=== PATIENT | male | born 1945 | race Caucasian/White ===

== ENCOUNTER → 2017-07-07 13:39 | Outpatient (CLI) | payer MEDICARE, OTHER, SELFPAY ==
--- NOTE | 2017-07-07 13:46 | RAD_ITS ---
STUDY: X-RAY CHEST REASON FOR EXAM: Male, 71 years old. Cough TECHNIQUE: Frontal and lateral views of the chest COMPARISON: 01/20/2017 FINDINGS: The lungs are clear. There are no pleural effusions. There is no pneumothorax. The heart is normal in size. There are stable postsurgical changes noted in the cervical spine. RAD/Chest PA and Lateral IMPRESSION: No acute thoracic pathology. Electronically Signed: Joseph Kaur, at 19:53 EST Tel , Service support ,
== END ==
PROVIDERS: Family Provider Family Medicine; PCP Family Medicine; Visit Provider Family Medicine
DX: R05 Cough (principal)
CPT/HCPCS: 71046

== ENCOUNTER → 2017-07-23 11:33 | Outpatient (CLI) | payer MEDICARE, OTHER, SELFPAY ==
[2017-07-23 18:06] LABS: Anion Gap 10 (5-15); BUN 17 mg/dL (7-18); Calcium,Total 9.1 mg/dL (8.5-10.1); Chloride 105 mmol/L (98-107); Creatinine, Serum 1.13 mg/dL (0.70-1.30); EST Glomerular Filtration Rate 68 mL/min (>60); Est Glom Filt Rate - Afr Amer 82 mL/min (>60); Glucose 128 mg/dL (74-106); Potassium 4.2 mmol/L (3.5-5.1); Sodium Level 139 mmol/L (136-145)
== END ==
PROVIDERS: Family Provider Family Medicine; PCP Family Medicine; Visit Provider Internal Medicine Cardiovascular Disease
DX: E87.6 Hypokalemia (principal); I10 Essential (primary) hypertension; E78.5 Hyperlipidemia, unspecified; Z95.5 Presence of coronary angioplasty implant and graft; I25.119 Atherosclerotic heart disease of native coronary artery with unspecified angina pectoris
CPT/HCPCS: 36415; 80048

== ENCOUNTER 2017-08-01 15:23 | Emergency (ER) | payer MEDICARE, OTHER, SELFPAY ==
[2017-08-01] VITALS (8 sets, daily range): BP systolic 121–179; BP diastolic 84–91; PULSE 72–112; RESP 16–22; TEMP 37.3; O2SAT 92–99; BMI 35.5
[2017-08-01] MEDS: Ondansetron 4 MG/2 ML Vial IV (15:40)
[2017-08-01] MEDS: Morphine 4 MG/ML Syringe IV (15:40)
[2017-08-01] MEDS: Morphine 2 MG/ML Syringe IV (15:40)
--- NOTE | 2017-08-01 15:47 | EKG12_ITS ---
Test Reason : CP Blood Pressure : / mmHG Vent. Rate : 106 BPM Atrial Rate : 106 BPM P-R Int : 150 ms QRS Dur : 080 ms QT Int : 336 ms P-R-T Axes : 078 085 067 degrees QTc Int : 446 ms Sinus tachycardia Otherwise normal ECG Confirmed by NAOMIE PALOMO, PARVEZ ([id number]), communications editor MARLENY SIMENTAL ([id number]) on 08/03/2017 1:27:49 PM Referred By: ELI Confirmed By:PARVEZ AKBAR MD
--- NOTE | 2017-08-01 15:47 | RAD_ITS ---
STUDY: X-RAY - ACUTE ABDOMINAL SERIES REASON FOR EXAM: Male, 72 years old. Abdominal cramping and chest pain TECHNIQUE: Single view of the chest. Supine, and erect view(s) of the abdomen were obtained. COMPARISON: Chest x-ray dated 07/07/2017 FINDINGS: Lungs are mildly hypoinflated. Lungs are clear. Normal size heart. Normal mediastinum and melanie. Normal visualized pulmonary arteries. Normal visualized aortic arch and descending thoracic aorta. There is a moderate amount of colonic fecal material. Keratocyst in the loops of right hemicolon. No evidence of small bowel obstruction. There are diffuse degenerative changes of the visualized lumbar spine. RAD/Acute Abdomen Inc Chest IMPRESSION: No acute airspace disease. Gaseous distended loops of colon fecal retention. Findings are suggestive of ileus. No evidence of small bowel obstruction. Electronically Signed: Carlton Gordon DO at 16:24 EDT Tel , Service support ,
[2017-08-01] MEDS: 0.9% Normal Saline 1,000 ML 150 ML IV (15:52)
[2017-08-01 16:11] LABS: Absolute Lymphocyte Count 2.15 X10^3/ul (0.83-4.51); Absolute Neutrophil Count 4.6 X10^3/uL (2.0-7.7); Basophil# 0.01 X10^3/uL; Basophil% 0.1 % (0-1); Eosinophil# 0.06 X10^3/uL; Eosinophils% 0.8 % (0-5); Hematocrit 43.9 % (40-54); Hemoglobin 14.3 g/dl (13.0-16.5); Lymphocyte # 2.15 X10^3/ul (4.0); Lymphocyte % 28.1 % (19-41); Mean Corp Hgb Conc 32.6 g/gl (32-36); Mean Corpuscular Hgb 28.9 pg (27.0-32.0); Mean Corpuscular Volume 88.7 fL (80-94); Mean Platelet Vol. 11.9 fl (6.2-12.0); Monocyte% 10.5 % (0-10); Neutrophil # 4.61 X10^3/uL (2.7-7.7); Neutrophil % 60.2 % (47-70); Platelet Count 183 K/mm3 (150-450); RBC Distribution Width CV 14.4 % (11.6-14.6); RBC Distribution Width SD 46.6 fl (35.1-43.9); Red Blood Count 4.95 M/mm3 (4.6-6.2); White Blood Count 7.7 K/mm3 (4.4-11.0)
[2017-08-01 16:12] LABS: POSITIVE COUNT NO; POSITIVE DIFFERENTIAL NO; POSITIVE MORPHOLOGY NO
[2017-08-01 16:26] LABS: Anion Gap 8 (5-15); BUN 20 mg/dL (7-18); BUN/Creat Ratio 9.8 RATIO (10-20); Calcium,Total 8.4 mg/dL (8.5-10.1); Chloride 105 mmol/L (98-107); Creatinine, Serum 2.04 mg/dL (0.70-1.30); EST Glomerular Filtration Rate 34 mL/min (>60); Est Glom Filt Rate - Afr Amer 42 mL/min (>60); Glucose 112 mg/dL (74-106); Potassium 4.3 mmol/L (3.5-5.1); Sodium Level 141 mmol/L (136-145)
[2017-08-01 16:38] LABS: Bacteria 0 SEEN /hpf (None Seen); Mucous, Urine 0 SEEN /hpf (<or=2+); Red Blood Cells-Urine 0 SEEN /hpf (0-5); White Blood Cells 0 SEEN /hpf (0-5)
[2017-08-01 16:50] LABS: Color, Urine Straw (Yellow); Glucose, Dipstick Normal (Normal); Ketone-Dipstick Negative (Negative); Leukocyte Esterase-Dipstick Negative /ul (Negative); Nitrite-Dipstick Negative (Negative); Occult Blood-Urine Negative /ul (Negative); Protein-Dipstick Negative (Negative); Specific Gravity, Urine 1.015 (1.002-1.030); Urine Bilirubin Dipstick Negative (Negative); Urine Clarity Sl. Cloudy (Clear); Urine Urobilinogen Normal (Normal)
--- NOTE | 2017-08-01 17:07 | EKG12_ITS ---
Test Reason : REPEAT Blood Pressure : / mmHG Vent. Rate : 085 BPM Atrial Rate : 085 BPM P-R Int : 154 ms QRS Dur : 086 ms QT Int : 364 ms P-R-T Axes : 070 069 048 degrees QTc Int : 433 ms Normal sinus rhythm Normal ECG Confirmed by NAOMIE PALOMO, PARVEZ ([id number]), editor managing director MARLENY SIMENTAL ([id number]) on 08/03/2017 1:28:00 PM Referred By: JIE Confirmed By:PARVEZ AKBAR MD
[2017-08-01 17:20] LABS: Squamous Epithelial Cells - UA 0-5 SEEN /hpf (0-5)
[2017-08-01] MEDS: Dicyclomine 10 MG Capsule 20 MG PO (19:00)
--- NOTE | 2017-08-01 19:42 | ED.DCSUM_ITS ---
- ER Visit Summary Date of Service: 08/01/17 Chief Complaint: Cramping right-sided abdominal pain and migratory chest pain History of Present Illness: The patient is a 72 M who presents with right-sided cramping pain as well as chest pain. Chest pain was initially left-sided and described as sharp lasting seconds to minutes. The pain then went to the right side and back to the left and complained of numbness left upper extremity. He had no other symptoms. Prior to him having any chest pain or abdominal pain he had diaphoresis. This occurred 1 hour prior to the abdominal or chest pain. He does have history coronary disease. He states his pain was sharp with the coronary pain. He has never had a cardiac catheterization at this facility and there are no records of stress test at this facility. He states he is scheduled to have an outpatient stress test that was ordered by Dr. Alberto Olmstead. He denies fever, chills night sweats. Denies any ocular, auditory or visual symptoms. He denies palpitations, rapid heartbeat. He denies shortness of breath, cough, dyspnea on exertion or orthopnea. His abdominal pain is colicky right-sided. He is status post cholecystectomy. He has no other GI symptoms. He denies any urologic symptoms and there is no history of renal ureterolithiasis. He denies myalgias arthralgias or back pain. He has no other complaints please read written note Past history of coronary disease with 5 stents, type 2 diabetes, hypertension, hypercholesterolemia and end-stage renal disease (stage III) and obesity. Per old records he has history of TIA. Past surgical history remarkable for cholecystectomy, tonsillectomy, herniorrhaphy and prostatectomy. Physical Examination: Elderly gentleman who does not appear in any significant distress. HEENT exam is unremarkable. Heart is regular without murmur, gallop or rub. Lungs are clear to auscultation. He has good movement bilaterally. Abdomen is soft nontender slightly distended with increased bowel sounds and mild tympana. He has a small reducible umbilical hernia. There is no evidence of inguinal hernia. There is no inguinal lymphadenopathy. He has no CVA tenderness noted. Neuro exam is nonfocal. Daughter was concerned that he had a rash. He does have a rash as well as dry scaly skin. There is no hives and this is located near the hairline/right side of the forehead. The rash does chelsea. Test Results: EKG #1, 2 and 3 are all normal. Troponin #1 and troponin #2 3 hours later is normal with a delta of 0. BMP is remarkable for glucose of 112 and creatinine of 2.04 with a GFR of 34. CBC is normal. Abdominal series obtained because of his abdominal pain with distention and reveals a nonsevere gas pattern with hardware noted secondary to cervical fusion. Cardiac silhouette and mediastinum are normal. There is air-fluid levels however there is no distention or edema to the small bowel wall. And there is gas noted throughout the intestine. Emergency Department Course and Treatment: Evaluate patient's abdominal pain because of distention and slight temp and abdominal series was obtained. To evaluate his chest pain with history of coronary disease and multiple medical problems EKG was obtained. EKG was obtained when he had pain as well as a 3 hour EKG. He also had a troponin with a delta 3 hour troponin. He initially received morphine for his colicky abdominal pain. He did receive 1 nitro for his chest pain as well as Bentyl. He and his daughter been told the etiology of his abdominal pain is uncertain and because of his chest pain is unknown as well. Treatment Plan: Keep appointment with Dr. Olmstead and outpatient stress test. Disposition: Discharged to home Impression: 1. Colicky right-sided abdominal pain of unknown etiology 2. Intermittent sharp chest pain of unknown etiology 3. History of coronary disease 4. History of diabetes, hypertension hypercholesterolemia 5. History of end-stage renal disease, stage III This note was generated with [employer] dictation software. It may contain incorrect words, spelling, and punctuation that were not noted in review of the chart prior to signing ED Disposition - Plan for ED Patient: Disposition: Home or Assisted Living Chief Complaint: Chest Pain Instructions: ED Chest Pain Atypical Unkn Cause, ED Abdominal Pain Unkn Cause Male Prescriptions: Dicyclomine HCl [Bentyl] 20 mg PO ACHS #10 cap Referrals: Victor M Luke DO [Primary Care Provider] - Kalee Olmstead MD [[facility]] - Keep [facility] appointment
[2017-08-01] MEDS: Dicyclomine 10 MG Capsule PO (19:48)
== END 2017-08-01 19:51 | disposition home or self-care (01) ==
PROVIDERS: Emergency Provider Emergency Medicine; Family Provider Family Medicine; PCP Family Medicine
DX: R10.84 Generalized abdominal pain (principal); R07.9 Chest pain, unspecified; I25.10 Atherosclerotic heart disease of native coronary artery without angina pectoris; E11.9 Type 2 diabetes mellitus without complications; E78.00 Pure hypercholesterolemia, unspecified; N18.6 End stage renal disease; I12.0 Hypertensive chronic kidney disease with stage 5 chronic kidney disease or end stage renal disease; Z90.49 Acquired absence of other specified parts of digestive tract; Z86.73 Personal history of transient ischemic attack (TIA), and cerebral infarction without residual deficits; Z87.891 Personal history of nicotine dependence
CPT/HCPCS: 74022; 80048; 81001; 84484; 85025; 93005; 99285; A4216; J2405

== ENCOUNTER → 2017-08-04 14:21 | Outpatient (CLI) | payer MEDICARE, OTHER, SELFPAY ==
--- NOTE | 2017-08-04 14:21 | ECHOD_ITS ---
Reason For Study: CAD/ASHD Procedure This was a 2D Doppler, Color Flow transthoracic echocardiogram. The study was technically difficult. Exam performed in department. Left Ventricle Normal size and thickness. The estimated ejection fraction is 65 %. Stage 1 diastolic dysfunction. No regional wall motion abnormalities noted. Right Ventricle Normal size and thickness. Normal systolic function. Atria Normal left atrium. Normal right atrium. Normal atrial septum. Mitral Valve The mitral valve is structurally normal. No prolapse or stenosis seen. Trivial mitral valve insufficiency. Tricuspid Valve Normal tricuspid valve. Trivial tricuspid valve insufficiency. Right ventricular systolic pressure estimated to be 30 mmHg. Aortic Valve Trisinus/trileaflet aortic valve. Mild focal aortic valve thickening. Pulmonic Valve Normal pulmonic valve. Great Vessels Normal aortic root. Normal arch. Normal inferior vena cava. Inferior vena cava collapse with sniff. Pericardium/Pleural No pericardial effusion. MMode/2D Measurements & Calculations LVIDd: 4.7 cm IVSd: 1.1 cm Ao root diam: 3.3 cm LVIDs: 3.1 cm LVPWd: 1.1 cm LA dimension: 3.5 cm RVDd: 3.0 cm FS: 34.5 % LAV(MOD-bp): 37.7 ml LA A4 area: 15.4 cm2 RA A4 area: 14.0 cm2 LAV(MOD-bp) Indexed: 17.7 ml/m2 LAV(MOD-sp2): 32.6 ml LAV(MOD-sp4): 43.7 ml Time Measurements MV dec time: 0.30 sec Doppler Measurements & Calculations MV E max nicho: 44.4 cm/sec Lat Peak E' Nicho: 9.2 cm/sec Med Peak E' Nicho: 5.7 cm/sec MV A max nicho: 60.4 cm/sec E/E' lat: 4.8 E/E' med: 7.7 MV E/A: 0.74 Ao V2 max: 120.0 cm/sec LV V1 max: 94.0 cm/sec PA V2 max: 116.3 cm/sec Ao max P.8 mmHg LV V1 max P.5 mmHg TR max nicho: 250.2 cm/sec TR max P.0 mmHg Interpretation Summary The estimated ejection fraction is 65 %. Stage 1 diastolic dysfunction. Trivial mitral valve insufficiency. Trivial tricuspid valve insufficiency. Right ventricular systolic pressure estimated to be 30 mmHg. Compared to echo report dated 08/17/2009, no appreciable chages noted. Ordering Physician: Elías Olmstead Referring Physician: Victor M Luke Performed By: Treva Black RDCS, RVT
== END ==
PROVIDERS: Family Provider Family Medicine; PCP Family Medicine; Visit Provider Internal Medicine Cardiovascular Disease
DX: I25.119 Atherosclerotic heart disease of native coronary artery with unspecified angina pectoris (principal); I25.2 Old myocardial infarction; Z95.5 Presence of coronary angioplasty implant and graft
CPT/HCPCS: 93306

== ENCOUNTER → 2017-08-06 13:23 | Outpatient (CLI) | payer MEDICARE, OTHER, SELFPAY ==
--- NOTE | 2017-08-06 13:24 | STEWCON_ITS ---
Reason For Study: Chest Pain Stress Results Protocol: Modified [facility]itt Protocol Maximum Predicted HR: 148 bpm Target HR: 126 bpm% Maximum Pred icted HR: 88 % Heart Stage Duration Rate BPCom ment (mm:ss) (bpm) Definity 2 ML Diluted Given; NTG 0.4 MG SL Given Per Baseline 92 128/ 90Order Prior To Test For BP of 176/120 Modified [facility] Protocol Stage 0 3:00 12 6 158/90 Modified [facility] Protocol Stage 1/2 0:30 13 0 / 2/1 0 Chest Pressure Recovery 96 146/ 90No Chest Pain Stress Duration: 3:30 mm:ss Maximum Stress HR: 130 bpmM ETS: 2 Baseline Echocardiogram Findings The estimated ejection fraction is 60 %. Stress Echo Wall motion Data Resting WMIntermediate WMStress WM Resting Wall Motion Wall Motion Stress No regional wall motion Lateral-Basal: Mildly abnormalities noted. hypokinetic. Infero-Basal: Mildly hypokinetic. EKG Data Normal intervals are noted. Interpretation Summary The study was technically difficult. Contrast injection was performed. Lateral-Basal: Mildly hypokinetic Infero-Basal: Mildly hypokinetic Abnormal, adequate, treadmill echocardiogram. Positive for ischemia by echocardiographic criteria. Positive anginal symptoms noted at peak exercise. Markedly reduced exercise capacity for age. Hypertensive blood pressure response to exercise. 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 Chest pain resolved in recovery. No dynamic EKG changes noted. Final LVEF of 55%. No complications. Patient will be referred for diagnostic coronary angiogram. Ordering Physician: Elías Olmstead Referring Physician: Elías Olmstead Performed By: Maida Gómez RDCS
== END ==
PROVIDERS: Family Provider Family Medicine; PCP Family Medicine; Visit Provider Internal Medicine Cardiovascular Disease
DX: I25.119 Atherosclerotic heart disease of native coronary artery with unspecified angina pectoris (principal); I25.2 Old myocardial infarction; Z95.5 Presence of coronary angioplasty implant and graft
CPT/HCPCS: 93017; 93350; J7030; Q9957; A4216; C8928

== ENCOUNTER 2017-08-13 06:40 | Day surgery (SDC) | payer MEDICARE, OTHER, SELFPAY ==
[2017-08-11 11:01] LABS: Absolute Lymphocyte Count 1.39 X10^3/ul (0.83-4.51); Absolute Neutrophil Count 4.8 X10^3/uL (2.0-7.7); Basophil# 0.02 X10^3/uL; Basophil% 0.3 % (0-1); Eosinophils% 1.4 % (0-5); Hematocrit 47.3 % (40-54); Hemoglobin 15.3 g/dl (13.0-16.5); Lymphocyte # 1.39 X10^3/ul (4.0); Lymphocyte % 19.6 % (19-41); Mean Corp Hgb Conc 32.3 g/gl (32-36); Mean Corpuscular Hgb 28.7 pg (27.0-32.0); Mean Corpuscular Volume 88.7 fL (80-94); Mean Platelet Vol. 12.3 fl (6.2-12.0); Monocyte# 0.77 X10^3/uL; Monocyte% 10.9 % (0-10); Neutrophil # 4.78 X10^3/uL (2.7-7.7); Neutrophil % 67.4 % (47-70); Platelet Count 161 K/mm3 (150-450); RBC Distribution Width CV 14.7 % (11.6-14.6); Red Blood Count 5.33 M/mm3 (4.6-6.2); White Blood Count 7.1 K/mm3 (4.4-11.0)
[2017-08-11 11:02] LABS: POSITIVE COUNT NO; POSITIVE DIFFERENTIAL NO; POSITIVE MORPHOLOGY NO
[2017-08-11 11:09] LABS: Prothrombin Time (Protime)PT. 13.6 SECONDS (11.7-14.9)
[2017-08-11 11:10] LABS: Partial Thromboplast Time 33.1 Seconds (24.1-36.2)
[2017-08-12 08:28] VITALS: BMI 32.5
[2017-08-13] VITALS (22 sets, daily range): BP systolic 92–159; BP diastolic 61–92; PULSE 61–95; RESP 15–27; TEMP 36.6–36.7; O2SAT 94–100; BMI 33.2; BMI 32.5
--- NOTE | 2017-08-13 10:17 | CL.I_ITS ---
Patient Name: GERRY GARCIA Study Date: 08/13/2017 Performing: Elías Olmstead MD Ht: 69 inches 175 cm : 1945 Wt: 220.8 lbs 100 kg Age: 72 Gender: male BSA: 2.15 PROCEDURE(S) PERFORMED JE89-DLI/COR/LV [id number] W OR WO PTCA, SINGLE CORONARY ARTERY CLINICAL PROFILE AND CO-MORBIDITIES Indications: New Onset Angina <= 2 months, Worsening Angina, Stable Known CAD Heart Failure: None Stress/Imaging Stress/Image Study Performed: No Angina Classification Anginal Classification w/in 2 Weeks: CCS IV CAD Presentations: Unstable angina. 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 RECOMMENDATIONS Referred for immediate PCI Highly recommend quitting all tobacco products Follow up with primary medical delivery driver Risk factor modification ASA Indefinitley Plavix for at least 12 months Routine post interventional care Refer for Outpatient Cardiac Rehab Manual sheath removal per protocol Follow up with Dr. Olmstead PFTS in 2 weeks Pt had similar chest pain and heaviness with balloon inflations. DESCRIPTION OF PROCEDURE The patient arrived to the procedure lab. The risks and benefits of the procedure as well as a full d escription of our services here and lack of surgical backup were fully explained to the patient and/o r their significant other prior to the catheterization. The Timeout was completed, verifying the slime ect patient and procedure. The patient's procedural site was prepped and draped in the usual fashion. Local anesthetic was given subcutaneously to right groin region with Lidocaine 2%. Using a modified Seldinger technique, arterial access was obtained via the right femoral artery, a 4Fr sheath was inse rted. Left Coronary Artery selective angiography was performed in multiple views using a 4 Fr. JL5 c atheter. Right Coronary Artery selective angiography was then performed in multiple views using a 4 F r. 3DRC catheter. Left Ventriculography was performed in JOSEPH projection using a 4 Fr. Pigtail cathete r. LV to AO pullback pressures were then recordedThe images were reviewed and options discussed. A de cision was then made to proceed with an Intervention, IVUS or other adjunct procedure. Arterial sheath was exchanged for a 6 Fr Sheath Angiogram performed pre balloon dilatation. HS2 Guide catheter was inserted and engaged into the RCA. BMW Guide wire was advanced to the Circumflex. Zinge r Guide wire was advanced to the Circumflex. BMW Guide wire was inserted as a toyin wire Zinger Guide wire was advanced to the Circumflex. Runthrough Guide wire was advanced to the Circumflex. 2x8 emerg e Balloon catheter was inserted. Balloon catheter was advanced across lesion in the circumflex, proxi mal. PTCA balloon inflated at 6 atms for 10 secs PTCA balloon inflated at 8 atms for 20 secs PTCA bal loon inflated at 8 atms for 10 secs Angiogram performed post balloon dilatation. PTCA balloon inflate d at 8 atms for 10 secs Angiogram performed pre stent deployment. 2.25x20 Synergy Drug Eluting stent was inserted Drug Eluting stent was advanced across the lesion in the circumflex, proximal. 2.25x8 NC emerge Balloon catheter was inserted. Angiogram performed post stent deployment. Arterial sheath was exchanged for a 6 Fr 11cm Sheath. . The arterial sheath was sutured in place and capped. CORONARY ANGIOGRAPHY DOMINANCE: Right Dominant LEFT HEART ASSESSMENT Left Ventricular Ejection Fraction: by LV Gram 65 % Normal Left Ventricular systolic function Normal Left Ventricular End Diastolic Pressure Normal LV wall motion LEFT MAIN: Angiographically normal LEFT ANTERIOR DECENDING ARTERY: Mild luminal irregularities less than 30% CIRCUMFLEX ARTERY: 85 prox % Stenosis RIGHT CORONARY ARTERY: MID RCA: Instent restenosis 10 % INTERVENTION INFORMATION LESION SITE: Circumflex (Proximal) Lesion Complexity: High/C, lesion at bifurcation: No, thrombus present: No, lesion length: 20 mm, cul prit lesion: Yes Pre Stenosis: 85 % Pre intervention DEXTER flow: 3 PROCEDURE: Drug Eluting Stent with pre and post dilatation Post Stenosis: 0 % Post intervention DEXTER flow: 3 Lesion Devices: Medtronic 6 Fr HSII 100cm Guide Catheter [place] .014 BMW [place] Straight 190cm Medtronic .014 Zinger medium wire 180cm straight Terumo .014 Runthrough Extra Floppy 180cm straight Aquiles Sci EMERGE MR 2.00x08 BALLOON Aquiles Sci Synergy MR KENDALL 2.25x20 Aquiles Sci NC EMERGE MR 2.25x08 BALLOON COMPLICATIONS No Complications PROCEDURE MEDICATIONS Oxygen: 2 L/min via nasal cannula Heparin 6000 unit(s) IV 08/13/2017 09:04:44 Nitro 200 mcg IC 08/13/2017 09:07:06 Nitro 200 mcg IC 08/13/2017 09:07:06 Nitro 200 mcg IC 08/13/2017 09:39:43 IV Fluids: .9 NaCl increased to W/O ml/hr 08/13/2017 09:09:29 IV Fluids: .9 NaCl decreased to 150 ml/hr 08/13/2017 09:34:46 SUMMARY OF HEMODYNAMIC DATA Time AIR REST ECG 07:05:48 AO 146/93 (117) SA 08:44:35 LV 151/-19, 14 08:53:31 LVp 156/-20, 13 08:53:50 AOp 152/75 (105) 08:53:55 Signed By Elías Olmstead MD On 08/13/2017 10:16:37 Elías Olmstead MD
--- NOTE | 2017-08-13 10:21 | EKG12_ITS ---
Test Reason : CP Blood Pressure : / mmHG Vent. Rate : 071 BPM Atrial Rate : 071 BPM P-R Int : 160 ms QRS Dur : 086 ms QT Int : 402 ms P-R-T Axes : 067 062 078 degrees QTc Int : 436 ms Normal sinus rhythm Inferior AR, age undetermined, cannot be excluded Nonspecific T wave abnormality Confirmed by RACH PALOMO, MUKUL ([id number]), staff editor MARLENY SIMENTAL ([id number]) on 08/20/2017 1:40:48 PM Referred By: Elías Olmstead Confirmed By:MUKUL LOYD MD
[2017-08-13 10:47] LABS: Hematocrit 42.3 % (40-54); Hemoglobin 14.1 g/dl (13.0-16.5); Mean Corp Hgb Conc 33.3 g/gl (32-36); Mean Corpuscular Hgb 29.4 pg (27.0-32.0); Mean Corpuscular Volume 88.1 fL (80-94); Mean Platelet Vol. 12.2 fl (6.2-12.0); Platelet Count 167 K/mm3 (150-450); RBC Distribution Width CV 14.6 % (11.6-14.6); RBC Distribution Width SD 46.8 fl (35.1-43.9); Scan Indicated on CBC? Y/N NO; White Blood Count 8.4 K/mm3 (4.4-11.0)
[2017-08-13 11:03] LABS: CPK Total, Creatine Kinase 81 U/L (39-308)
[2017-08-13 11:42] LABS: M R Staph aureus DNA By PCR Negative (Negative); Probe Check PASS; Specimen Processing Control PASS
[2017-08-13] MEDS: Spironolactone 50 MG Tablet PO (13:35)
[2017-08-13] MEDS: Cyanocobalamin 500 MCG Tablet 1000 MCG PO (13:38)
--- NOTE | 2017-08-13 14:03 | CRPHASE1 ---
Patient Data/Charges Former Patient:: Phase I Audience Coordinator:: Elías Olmstead Admit Date:: 08/13/17 Phase II Referral:: [facility] Phase I Charge:: Level I - Education Risk Factors/Lifestyle Smoking Status: Former smoker - QUIT 20 NYRS AGO Hx Hypertension: Yes - ON MEDS Hx Diabetes Mellitus Type 2: Yes - ON MEDS Hx Obesity: Yes Height: 1.75 m Weight:: 99.79 kg BMI: 32.5 Stress: Long-standing Caffeine: Yes Risk Factor for Sedentary Lifestyle: Moderate Risk Family History: COPD, Diabetes, Heart Disease, Hypertension, Pulmonary Disease Past Cardiac Illness: Myocardial Infarction Phase I Education Given On:: [place], Nutrition, Antiplatelet medication, CHF, Diabetes - Type II Issues Affecting Care:: None Knowledge of Condition:: Yes Hospital Course Pain Description: Throbbing, Cramping Pain Intensity: 10 Cardiac Cath Date:: 08/13/17 Medical/Surgical History [place]:: Yes - 2006 Angina:: Yes COPD:: Yes - GETTING TESTING DONE Diabetes Type II:: Yes - ON MEDS Hypertension:: Yes - ON MEDS Arthritis:: Yes - USES A CANE GI:: No GERD:: No Cancer:: No Renal:: No Thyroid:: No Depression:: Yes Anxiety:: Yes Discharge/Home/Social Eval Discharge Disposition: Home Marital Status: -
--- NOTE | 2017-08-13 14:09 | CRPHASE1_ITS ---
Patient Data/Charges Former Patient:: Phase I Security Inspector:: Elías Olmstead Admit Date:: 08/13/17 Phase II Referral:: [facility] Phase I Charge:: Level I - Education Risk Factors/Lifestyle Smoking Status: Former smoker - QUIT 20 NYRS AGO Hx Hypertension: Yes - ON MEDS Hx Diabetes Mellitus Type 2: Yes - ON MEDS Hx Obesity: Yes Height: 1.75 m Weight:: 99.79 kg BMI: 32.5 Stress: Long-standing Caffeine: Yes Risk Factor for Sedentary Lifestyle: Moderate Risk Family History: COPD, Diabetes, Heart Disease, Hypertension, Pulmonary Disease Past Cardiac Illness: Myocardial Infarction Phase I Education Given On:: [place], Nutrition, Antiplatelet medication, CHF, Diabetes - Type II Issues Affecting Care:: None Knowledge of Condition:: Yes Hospital Course Pain Description: Throbbing, Cramping Pain Intensity: 10 Cardiac Cath Date:: 08/13/17 Medical/Surgical History [place]:: Yes - 2006 Angina:: Yes COPD:: Yes - GETTING TESTING DONE Diabetes Type II:: Yes - ON MEDS Hypertension:: Yes - ON MEDS Arthritis:: Yes - USES A CANE GI:: No GERD:: No Cancer:: No Renal:: No Thyroid:: No Depression:: Yes Anxiety:: Yes Discharge/Home/Social Eval Discharge Disposition: Home Marital Status: -
--- NOTE | 2017-08-13 14:11 | CRPH1.INST_ITS ---
General Education CAD and cardiac anatomy and function:: Patient communicates acknowledgment, Family communicates acknowledgment Explanation of diagnoses and procedures:: Patient communicates acknowledgment, Family communicates acknowledgment Sign/Symptoms of ID:: Patient communicates acknowledgment, Family communicates acknowledgment Antiplatelet therapy: Patient communicates acknowledgment, Family communicates acknowledgment Proper use of NTG-SL: Patient communicates acknowledgment, Family communicates acknowledgment Emergency procedures and activation of EMS: Patient communicates acknowledgment , Family communicates acknowledgment Compliance of all prescribed medications: Patient communicates acknowledgment, Family communicates acknowledgment Smoking Patient Nicotine/Smoking Risk Factors Are:: Non-smoker - QUIT 20 YRS AGO Dyslipidemia Recommendations Include:: Lipid profile not available Overweight/Obesity Patient Overweight/Obesity Risk Factors Are:: Obesity - > or = 30 - PATIENTS ATATES HE HAS A PROBLEM WITH OVEREATING. Overweight/Obesity:: Patient communicates acknowledgment, Family communicates acknowledgment Hypertension Recommendations Include:: Maintain BP <130/85, BP <130/80 if diabetic, DASH dietary guidelines, Decrease/maintain normal body weight Hypertension:: Patient communicates acknowledgment, Family communicates acknowledgment - ON MEDS Heart Disease Patient Heart Disease Risk Factors Are:: Previous cardiac event Heart Disease Response Code:: Patient communicates acknowledgment, Family communicates acknowledgment Diabetes Patient Diabetes Risk Factors Are:: Elevated blood sugars Recommendations Include:: Maintain fasting blood sugars 70-110 md/dL, Maintain HgbA1c of 6% or less, Monitor blood sugar as prescribed, Diabetic dietary guidelines, Decrease/maintain body weight Diabetes:: Patient communicates acknowledgment Metabolic Syndrome Patient Metabolic Syndrome Risk Factors Are [3 of 5]:: Fasting blood sugar > 100 mg/dL, Hypertension Recommendations Include:: Reinforce compliance to risk factor modifications, Patient is diabetic Metabolic Syndrome Response Code:: Patient communicates acknowledgment, Family communicates acknowledgment Sedentary Patient Sedentary Risk Factors Are:: Lack of regular exercise Recommendations Include:: Benefits of regular exercise, Discussed home walking program, Monitored Outpatient Cardiac Rehab Sedentary Response Code:: Patient communicates acknowledgment, Family communicates acknowledgment Stress Recommendations Include:: Identification of stressors, and assessment of coping skills Stress Response Code:: Patient communicates acknowledgment, Family communicates acknowledgment - ON MEDS FOR ANXIETY
--- NOTE | 2017-08-13 14:50 | EKG12_ITS ---
Test Reason : POST CATH Blood Pressure : / mmHG Vent. Rate : 063 BPM Atrial Rate : 063 BPM P-R Int : 166 ms QRS Dur : 082 ms QT Int : 380 ms P-R-T Axes : 069 060 083 degrees QTc Int : 388 ms Normal sinus rhythm Nonspecific T wave abnormality Confirmed by RACH PALOMO, MUKUL ([id number]), newspaper copy editor MARLENY SIMENTAL ([id number]) on 08/20/2017 1:41:03 PM Referred By: Elías Olmstead Confirmed By:MUKUL LOYD MD
--- NOTE | 2017-08-13 14:58 | PCM.PN.BLA ---
Progress Note Patient is not on an JOSELO inhibitor or ARB d/t kidney disease.
--- NOTE | 2017-08-13 15:01 | PCM.DC.CCA ---
Discharge Diet: Low fat/ Low Cholesterol Discharge Activity: Return to Normal Activity May shower in (days): 1 May resume sexual activity in: 10-14 days Lifting Restrictions: Do not lift anything greater than 10 pounds for 3 days Call your doctor if your incision/area has: Continuous Slow Oozing, Sudden Increased Bleeding, Increased Pain/ Swelling, Increased Redness, Foul Smelling Discharge, Swelling at the incision site Call your doctor if you observe: Fever of 101 or Higher, Shortness of breath, Chest pain Remove Dressing in (days):: 1 Cleanse incision/area with: Soap & Water Additional Instructions: You will continue with Plavix for at least one year. If anyone asks you to stop it or you are getting low on medication, please call the [facility] at [phone]. You will continue with aspirin for life if tolerated. You will keep appointment on 08/30/[address] Olmstead for further evaluation. You will under going lung tests on 08/23/2017. You may receive a phone call from cardiac rehab before next visit with Dr. Olmstead. Allergies/Adverse Reactions: Allergies No Known Allergies Allergy (Verified 07/22/17 10:54) Medications to take at Discharge Aspirin E.C. [Ecotrin] 81 mg PO DAILY@0800 01/21/17 Cholecalciferol (Vitamin D3) [Vitamin D3] 2,000 unit PO DAILY 01/21/17 Clopidogrel Bisulfate [Clopidogrel] 75 mg PO DAILY 01/21/17 Cyanocobalamin (Vitamin B-12) [Vitamin B-12] 1,000 mcg PO DAILY 01/21/17 Furosemide [Lasix] 80 mg PO DAILY 01/21/17 Isosorbide Mononitrate [Imdur] 120 mg PO DAILY 01/21/17 Magnesium Oxide [Magnesium] 400 mg PO DAILY 01/21/17 Nitroglycerin [Nitrostat] 0.3 mg SL UD PRN 01/21/17 Pantoprazole Sodium [Protonix] 40 mg PO BID 01/21/17 Spironolactone [Aldactone] 50 mg PO DAILY 01/21/17 Venlafaxine HCl [Venlafaxine HCl ER] 150 mg PO DAILY 01/21/17 metoprolol tartrate 50 mg tablet 50 mg PO BID 07/22/17 potassium chloride ER 20 mEq tablet,extended release 20 meq PO Q4H tab 07/22/17 Atorvastatin Calcium [Lipitor] 80 mg PO QHS 08/12/17 Primary Care Physician: Victor M Luke DO [Primary Care Provider] - Please Follow Up With: Dr. Olmstead When: 08/30/2017 at 1:30 Proposed Discharge Date: 08/14/17 Cardiac Rehabilitation Info Cardiac Rehabilitation Program Information: Cardiac Rehabilitation is important for patients like you who are recovering from a heart problem. Cardiac rehabilitation programs are recognized as integral to the continued care of the patient with coronary heart disease. The cardiac rehabilitation program is designed to optimize a patient's physical, psychological, and social functioning. Health palliative care nurse work in cardiac rehabilitation programs and assist you with getting the treatments you need to get stronger and healthier - like exercise, healthy eating habits, and medications. Cardiac rehabilitation has been show to help people with heart problems live longer and have better life enjoyment than people who do not go to cardiac rehabilitation. Please contact the Cardiac Rehabilitation Program at [facility] at in two weeks if you have not heard from them.
--- NOTE | 2017-08-13 15:06 | DCINST_ITS ---
Discharge Diet: Low fat/ Low Cholesterol Discharge Activity: Return to Normal Activity May shower in (days): 1 May resume sexual activity in: 10-14 days Lifting Restrictions: Do not lift anything greater than 10 pounds for 3 days Call your doctor if your incision/area has: Continuous Slow Oozing, Sudden Increased Bleeding, Increased Pain/ Swelling, Increased Redness, Foul Smelling Discharge, Swelling at the incision site Call your doctor if you observe: Fever of 101 or Higher, Shortness of breath, Chest pain Remove Dressing in (days):: 1 Cleanse incision/area with: Soap & Water Additional Instructions: You will continue with Plavix for at least one year. If anyone asks you to stop it or you are getting low on medication, please call the [facility] at [phone]. You will continue with aspirin for life if tolerated. You will keep appointment on 08/30/[address] Olmstead for further evaluation. You will under going lung tests on 08/23/2017. You may receive a phone call from cardiac rehab before next visit with Dr. Olmstead. Allergies/Adverse Reactions: Allergies No Known Allergies Allergy (Verified 07/22/17 10:54) Medications to take at Discharge Aspirin E.C. [Ecotrin] 81 mg PO DAILY@0800 01/21/17 Cholecalciferol (Vitamin D3) [Vitamin D3] 2,000 unit PO DAILY 01/21/17 Clopidogrel Bisulfate [Clopidogrel] 75 mg PO DAILY 01/21/17 Cyanocobalamin (Vitamin B-12) [Vitamin B-12] 1,000 mcg PO DAILY 01/21/17 Furosemide [Lasix] 80 mg PO DAILY 01/21/17 Isosorbide Mononitrate [Imdur] 120 mg PO DAILY 01/21/17 Magnesium Oxide [Magnesium] 400 mg PO DAILY 01/21/17 Nitroglycerin [Nitrostat] 0.3 mg SL UD PRN 01/21/17 Pantoprazole Sodium [Protonix] 40 mg PO BID 01/21/17 Spironolactone [Aldactone] 50 mg PO DAILY 01/21/17 Venlafaxine HCl [Venlafaxine HCl ER] 150 mg PO DAILY 01/21/17 metoprolol tartrate 50 mg tablet 50 mg PO BID 07/22/17 potassium chloride ER 20 mEq tablet,extended release 20 meq PO Q4H tab Atorvastatin Calcium [Lipitor] 80 mg PO QHS 08/12/17 Primary Care Physician: Victor M Luke DO [Primary Care Provider] - Please Follow Up With: Dr. Olmstead When: 08/30/2017 at 1:30 Proposed Discharge Date: 08/14/17 Cardiac Rehabilitation Info Cardiac Rehabilitation Program Information: Cardiac Rehabilitation is important for patients like you who are recovering from a heart problem. Cardiac rehabilitation programs are recognized as integral to the continued care of the patient with coronary heart disease. The cardiac rehabilitation program is designed to optimize a patient's physical, psychological, and social functioning. Health post acute care registered nurse work in cardiac rehabilitation programs and assist you with getting the treatments you need to get stronger and healthier - like exercise, healthy eating habits, and medications. Cardiac rehabilitation has been show to help people with heart problems live longer and have better life enjoyment than people who do not go to cardiac rehabilitation. Please contact the Cardiac Rehabilitation Program at [facility] at in two weeks if you have not heard from them.
[2017-08-13 15:30] LABS: ACT Activated Clotting Time 158 sec (74-137)
[2017-08-13] MEDS: Furosemide 80 MG Tablet PO (16:18)
[2017-08-13] MEDS: Magnesium Oxide 400 MG Tablet PO (16:18)
[2017-08-13 16:51] LABS: Hematocrit 41.6 % (40-54); Hemoglobin 13.4 g/dl (13.0-16.5); Mean Corp Hgb Conc 32.2 g/gl (32-36); Mean Corpuscular Hgb 28.9 pg (27.0-32.0); Mean Corpuscular Volume 89.7 fL (80-94); Mean Platelet Vol. 12.4 fl (6.2-12.0); Platelet Count 141 K/mm3 (150-450); RBC Distribution Width CV 14.7 % (11.6-14.6); RBC Distribution Width SD 48.1 fl (35.1-43.9); Red Blood Count 4.64 M/mm3 (4.6-6.2); White Blood Count 7.2 K/mm3 (4.4-11.0)
[2017-08-13 17:01] LABS: CPK Total, Creatine Kinase 86 U/L (39-308)
[2017-08-13 17:12] LABS: Scan Indicated on CBC? Y/N NO
[2017-08-13] MEDS: Morphine 2 MG/ML Syringe IV ×2 (18:34→23:49)
[2017-08-13] MEDS: 0.9% NaCl Peripheral Flush Adult/Peds IV ×3 (18:35→23:49)
[2017-08-13] MEDS: LORazepam 1 MG Tablet PO (21:53)
[2017-08-13] MEDS: Atorvastatin Calcium 80 MG Tablet PO (21:54)
[2017-08-13] MEDS: Metoprolol Tartrate 50 MG Tablet PO (21:54)
[2017-08-13] MEDS: Pantoprazole Sodium 40 MG Tablet PO (21:55)
[2017-08-13 22:32] LABS: Hematocrit 44.1 % (40-54); Hemoglobin 14.3 g/dl (13.0-16.5); Mean Corp Hgb Conc 32.4 g/gl (32-36); Mean Corpuscular Hgb 28.7 pg (27.0-32.0); Mean Corpuscular Volume 88.6 fL (80-94); Mean Platelet Vol. 12.2 fl (6.2-12.0); Platelet Count 158 K/mm3 (150-450); RBC Distribution Width CV 14.6 % (11.6-14.6); RBC Distribution Width SD 47.5 fl (35.1-43.9); Red Blood Count 4.98 M/mm3 (4.6-6.2); White Blood Count 8.9 K/mm3 (4.4-11.0)
[2017-08-13 22:46] LABS: CPK Total, Creatine Kinase 91 U/L (39-308)
[2017-08-13 22:48] LABS: Scan Indicated on CBC? Y/N NO
[2017-08-14] VITALS (18 sets, daily range): BP systolic 95–155; BP diastolic 49–91; PULSE 71–106; RESP 14–20; TEMP 36.4–37.1; O2SAT 92–96
[2017-08-14 05:12] LABS: Anion Gap 7 (5-15); BUN 16 mg/dL (7-18); BUN/Creat Ratio 12.8 RATIO (10-20); Calcium,Total 8.4 mg/dL (8.5-10.1); Chloride 105 mmol/L (98-107); Cholesterol 200 mg/dL (200); Creatinine, Serum 1.25 mg/dL (0.70-1.30); EST Glomerular Filtration Rate 60 mL/min (>60); Est Glom Filt Rate - Afr Amer 73 mL/min (>60); Estimated Creatinine Clearance 53.42 ml/min; Glucose 114 mg/dL (74-106); High Density Lipoprotein 34 mg/dL; Potassium 4.2 mmol/L (3.5-5.1); Sodium Level 139 mmol/L (136-145); Triglycerides 328 mg/dL; Very Low Density Lipoprotein 66 mg/dL (5-40)
[2017-08-14 05:21] LABS: Hematocrit 42.1 % (40-54); Hemoglobin 13.9 g/dl (13.0-16.5); Mean Corpuscular Hgb 29.4 pg (27.0-32.0); Mean Platelet Vol. 11.9 fl (6.2-12.0); Platelet Count 130 K/mm3 (150-450); RBC Distribution Width CV 14.7 % (11.6-14.6); RBC Distribution Width SD 47.4 fl (35.1-43.9); Red Blood Count 4.73 M/mm3 (4.6-6.2); Scan Indicated on CBC? Y/N NO; White Blood Count 8.4 K/mm3 (4.4-11.0)
--- NOTE | 2017-08-14 05:55 | EKG12_ITS ---
Test Reason : AM EKG Blood Pressure : / mmHG Vent. Rate : 073 BPM Atrial Rate : 073 BPM P-R Int : 166 ms QRS Dur : 082 ms QT Int : 372 ms P-R-T Axes : 064 057 080 degrees QTc Int : 409 ms Normal sinus rhythm Inferior [place], age undetermined, cannot be excluded Nonspecific T wave abnormality Confirmed by RACH PALOMO, MUKUL ([id number]), fashion editor MARLENY SIMENTAL ([id number]) on 08/20/2017 1:39:52 PM Referred By: Elías Olmstead Confirmed By:MUKUL LOYD MD
[2017-08-14] MEDS: Aspirin E.C. 81 MG Tablet PO (07:59)
[2017-08-14] MEDS: Magnesium Oxide 400 MG Tablet PO (08:01)
[2017-08-14] MEDS: Pantoprazole Sodium 40 MG Tablet PO (08:01)
[2017-08-14] MEDS: Clopidogrel Bisulfate 75 MG Tablet PO (08:01)
[2017-08-14] MEDS: Furosemide 80 MG Tablet PO (08:02)
[2017-08-14] MEDS: Cyanocobalamin 500 MCG Tablet 1000 MCG PO (08:02)
[2017-08-14] MEDS: Metoprolol Tartrate 50 MG Tablet PO (08:04)
[2017-08-14] MEDS: Spironolactone 50 MG Tablet PO (08:05)
--- NOTE | 2017-08-14 12:49 | PN.CARD_ITS ---
Subjectve: No complaints. Ambulating. Objective: Vital Signs Temp Pulse Resp BP Pulse Ox 97.5 F L 84 20 H 144/84 H 95 08/14/17 07:48 08/14/17 10:00 08/14/17 07:48 08/14/17 08:04 08/14/17 07:48 Oxygen Flow Rate (L/min) 2 Oxygen Delivery Method Room Air Weight: 100.1 kg Body Mass Index (BMI) 33.2 Finger Stick Blood Glucose 149 Intake and Output for Last 24 Hours 08/12/17 08/13/17 08/14/17 23:59 23:59 23:59 Intake Total 1720 / 1720 220 / 220 Output Total 2550 / 2550 500 / 500 Balance -830 / -830 -280 / -280 General: Healthy Appearing, Awake, Alert, Oriented x 3, No Acute Distress HEENT: Atraumatic Oral: Moist Mucosa Neck: Supple, No JVD Lungs: Clear to auscultation Cardiovascular: Regular Rhythm, Normal S1, Normal S2 Abdomen: Bowel Sounds Present, Soft Extremities: - - Right groin stable. No hematoma. Neurological: No Focal Motor or Sensory Deficit Psych/Mental Status: Appropriate 08/13/17 16:30: WBC 7.2, RBC 4.64, Hgb 13.4, Hct 41.6, MCV 89.7, MCH 28.9, MCHC 32.2, RDW 14.7 H, RDW Differential 48.1 H, Plt Count 141 L, MPV 12.4 H 08/13/17 22:05: WBC 8.9, RBC 4.98, Hgb 14.3, Hct 44.1, MCV 88.6, MCH 28.7, MCHC 32.4, RDW 14.6, RDW Differential 47.5 H, Plt Count 158, MPV 12.2 H 08/14/17 04:20: Sodium 139, Potassium 4.2, Chloride 105, Carbon Dioxide 27.0, Anion Gap 7, BUN 16, Creatinine 1.25, Est GFR (MDRD) Af Amer 73, Est GFR (MDRD) Non-Af 60, BUN/Creatinine Ratio 12.8, Glucose 114 H, Calcium 8.4 L, Triglycerides 328 H, Cholesterol 200, LDL Cholesterol 100, VLDL Cholesterol 66 H , HDL Cholesterol 34 L 08/14/17 04:20: WBC 8.4, RBC 4.73, Hgb 13.9, Hct 42.1, MCV 89.0, MCH 29.4, MCHC 33.0, RDW 14.7 H, RDW Differential 47.4 H, Plt Count 130 L, MPV 11.9 08/14/17 04:20: WBC Cancelled, Corrected WBC Cancelled, RBC Cancelled, Hgb Cancelled, Hct Cancelled, MCV Cancelled, MCH Cancelled, MCHC Cancelled, RDW Cancelled, RDW Differential Cancelled, Plt Count Cancelled, MPV Cancelled Rhythm: Normal sinus : Medical Necessity - Tobacco Use Smoking Status: Former smoker - QUIT 20 NYRS AGO Assessment/Plan 1. Coronary artery disease status post percutaneous intervention to aberrantly originating circumflex coronary artery. Stable. Asymptomatic X 2. Hypertension 3. Diabetes mellitus 4. History of chronic renal insufficiency 5. Platelet count mildly down. Will repeat another platelet count at 4:00 this afternoon. If it was stable or better, the patient will be discharged home with instructions to follow-up complete blood count on Wednesday.
--- NOTE | 2017-08-14 12:49 | PCM.DC.SUM ---
Discharge Date and Diagnosis Date of Admission: 03/15/11 Date of Discharge: 08/14/17 - Primary Discharge Diagnosis 1. 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 Type 2 diabetes mellitus without complications (Chronic) Hypertension (Chronic) Hyperlipidemia (Chronic) Old myocardial infarction (Chronic) Obesity (Chronic) History of coronary artery stent placement (Chronic ~05/07/06) PCI-POBA-Cx and Stent-Mid RCA x 2 Multi Link Mini Vision Rx Strent 4.0 x 28 mm 01/21/2006 PCI-KENDALL-Mid RCA Taxus Express2 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 Angiography revealed lesion and aberrantly originating circumflex coronary artery. Successful percutaneous intervention was performed with placement of a drug-eluting stent [] Discharge Diet: Low fat/ Low Cholesterol Discharge Activity: Return to Normal Activity May shower in (days): 1 May resume sexual activity in: 10-14 days Call your doctor if your incision/area has: Continuous Slow Oozing, Sudden Increased Bleeding, Increased Pain/ Swelling, Increased Redness, Foul Smelling Discharge, Swelling at the incision site Call your doctor if you observe: Fever of 101 or Higher, Shortness of breath, Chest pain Remove Dressing in (days):: 1 Cleanse incision/area with: Soap & Water Home Medications: Medications to take at Discharge Aspirin E.C. [Ecotrin] 81 mg PO DAILY@0800 01/21/17 Cholecalciferol (Vitamin D3) [Vitamin D3] 2,000 unit PO DAILY 01/21/17 Clopidogrel Bisulfate [Clopidogrel] 75 mg PO DAILY 01/21/17 Cyanocobalamin (Vitamin B-12) [Vitamin B-12] 1,000 mcg PO DAILY 01/21/17 Furosemide [Lasix] 80 mg PO DAILY 01/21/17 Isosorbide Mononitrate [Imdur] 120 mg PO DAILY 01/21/17 Magnesium Oxide [Magnesium] 400 mg PO DAILY 01/21/17 Nitroglycerin [Nitrostat] 0.3 mg SL UD PRN 01/21/17 Pantoprazole Sodium [Protonix] 40 mg PO BID 01/21/17 Spironolactone [Aldactone] 50 mg PO DAILY 01/21/17 Venlafaxine HCl [Venlafaxine HCl ER] 150 mg PO DAILY 01/21/17 metoprolol tartrate 50 mg tablet 50 mg PO BID 07/22/17 potassium chloride ER 20 mEq tablet,extended release 20 meq PO Q4H tab 07/22/17 Atorvastatin Calcium [Lipitor] 80 mg PO QHS 08/12/17 Primary Care Physician: Victor M Luke DO [Primary Care Provider] - Please Follow Up With: Dr. Olmstead When: 08/30/2017 at 1:30 Additional Instructions: You will continue with Plavix for at least one year. If anyone asks you to stop it or you are getting low on medication, please call the [facility] at [phone]. You will continue with aspirin for life if tolerated. You will keep appointment on 08/30/[address] Olmstead for further evaluation. You will under going lung tests on 08/23/2017. You may receive a phone call from cardiac rehab before next visit with Dr. Olmstead. Medical Necessity - Tobacco Use Smoking Status: Former smoker - QUIT 20 NYRS AGO Meaningful Use Info Meaningful Use Diagnoses (Choose all that apply): None applicable
--- NOTE | 2017-08-14 12:53 | DS.PCM_ITS ---
Discharge Date and Diagnosis Date of Admission: 03/15/11 Date of Discharge: 08/14/17 - Primary Discharge Diagnosis 1. 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 Type 2 diabetes mellitus without complications (Chronic) Hypertension (Chronic) Hyperlipidemia (Chronic) Old myocardial infarction (Chronic) Obesity (Chronic) History of coronary artery stent placement (Chronic ~05/07/06) PCI-POBA-Cx and Stent-Mid RCA x 2 Multi Link Mini Vision Rx Strent 4.0 x 28 mm 01/21/2006 PCI-KENDALL-Mid RCA Taxus Express2 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 Angiography revealed lesion and aberrantly originating circumflex coronary artery. Successful percutaneous intervention was performed with placement of a drug-eluting stent [] Discharge Diet: Low fat/ Low Cholesterol Discharge Activity: Return to Normal Activity May shower in (days): 1 May resume sexual activity in: 10-14 days Call your doctor if your incision/area has: Continuous Slow Oozing, Sudden Increased Bleeding, Increased Pain/ Swelling, Increased Redness, Foul Smelling Discharge, Swelling at the incision site Call your doctor if you observe: Fever of 101 or Higher, Shortness of breath, Chest pain Remove Dressing in (days):: 1 Cleanse incision/area with: Soap & Water Home Medications: Medications to take at Discharge Aspirin E.C. [Ecotrin] 81 mg PO DAILY@0800 01/21/17 Cholecalciferol (Vitamin D3) [Vitamin D3] 2,000 unit PO DAILY 01/21/17 Clopidogrel Bisulfate [Clopidogrel] 75 mg PO DAILY 01/21/17 Cyanocobalamin (Vitamin B-12) [Vitamin B-12] 1,000 mcg PO DAILY 01/21/17 Furosemide [Lasix] 80 mg PO DAILY 01/21/17 Isosorbide Mononitrate [Imdur] 120 mg PO DAILY 01/21/17 Magnesium Oxide [Magnesium] 400 mg PO DAILY 01/21/17 Nitroglycerin [Nitrostat] 0.3 mg SL UD PRN 01/21/17 Pantoprazole Sodium [Protonix] 40 mg PO BID 01/21/17 Spironolactone [Aldactone] 50 mg PO DAILY 01/21/17 Venlafaxine HCl [Venlafaxine HCl ER] 150 mg PO DAILY 01/21/17 metoprolol tartrate 50 mg tablet 50 mg PO BID 07/22/17 potassium chloride ER 20 mEq tablet,extended release 20 meq PO Q4H tab Atorvastatin Calcium [Lipitor] 80 mg PO QHS 08/12/17 Primary Care Physician: Victor M Luke DO [Primary Care Provider] - Please Follow Up With: Dr. Olmstead When: 08/30/2017 at 1:30 Additional Instructions: You will continue with Plavix for at least one year. If anyone asks you to stop it or you are getting low on medication, please call the [facility] at [phone]. You will continue with aspirin for life if tolerated. You will keep appointment on 08/30/[address] Olmstead for further evaluation. You will under going lung tests on 08/23/2017. You may receive a phone call from cardiac rehab before next visit with Dr. Olmstead. Medical Necessity - Tobacco Use Smoking Status: Former smoker - QUIT 20 NYRS AGO Meaningful Use Info Meaningful Use Diagnoses (Choose all that apply): None applicable
[2017-08-14] MEDS: LORazepam 1 MG Tablet PO (13:35)
[2017-08-14 16:51] LABS: Hematocrit 45.1 % (40-54); Mean Corp Hgb Conc 33.3 g/gl (32-36); Mean Corpuscular Hgb 29.3 pg (27.0-32.0); Mean Corpuscular Volume 88.1 fL (80-94); Mean Platelet Vol. 12.1 fl (6.2-12.0); Platelet Count 163 K/mm3 (150-450); RBC Distribution Width CV 14.5 % (11.6-14.6); RBC Distribution Width SD 46.4 fl (35.1-43.9); Red Blood Count 5.12 M/mm3 (4.6-6.2); Scan Indicated on CBC? Y/N NO; White Blood Count 8.3 K/mm3 (4.4-11.0)
== END 2017-08-14 17:39 | disposition home or self-care (01) ==
LOC: CLSP 06:40 → ICU 09:26
PROVIDERS: Internal Medicine Cardiovascular Disease; Family Provider Family Medicine; PCP Family Medicine; Visit Provider Internal Medicine Cardiovascular Disease
DX: I25.10 Atherosclerotic heart disease of native coronary artery without angina pectoris (principal); T82.858A Stenosis of other vascular prosthetic devices, implants and grafts, initial encounter; I10 Essential (primary) hypertension; E11.9 Type 2 diabetes mellitus without complications; E78.5 Hyperlipidemia, unspecified; E66.9 Obesity, unspecified; I25.2 Old myocardial infarction; Z95.5 Presence of coronary angioplasty implant and graft; Z87.891 Personal history of nicotine dependence; Z79.82 Long term (current) use of aspirin; R06.02 Shortness of breath; Z68.32 Body mass index [BMI] 32.0-32.9, adult
CPT/HCPCS: 36415; 80048; 80061; 82550; 85025; 85027; 85347; 85610; 85730; 87641; 92928; 93005; 93458; J7030; A4216; C1725; C1769; C1874; C1887; C1894; C9600; Q9967

== ENCOUNTER → 2017-08-23 07:38 | Outpatient (CLI) | payer MEDICARE, OTHER, SELFPAY ==
[2017-08-13 14:08] VITALS: BMI 32.5
--- NOTE | 2017-08-23 13:14 | PFT ---
INTRODUCTION: The patient is a 72-year-old male currently under the care of Dr. Olmstead that presents for pulmonary function testing secondary to a diagnosis of dyspnea. Respiratory therapy reports good patient effort and reports no other concerns. Bronchodilators were used during testing. INTERPRETATION: Forced expiration spirometry demonstrates the presence of a moderate large airways obstructive ventilatory defect. There was no significant response to aerosolized bronchodilators, based upon strict ATS criteria. Spirograms are of good quality and do not plateau indicating slow emptying of the lungs. The respiratory flow volume loop reveals decreased expiratory flow rates at all lung volumes consistent with airways obstruction. Body plethysmography was performed and reveals lung volumes to be within normal limits. Diffusing capacity by single breath CO is also within normal limits at 89% of predicted. IMPRESSION: These pulmonary function studies demonstrate the presence of a partially reversible moderate large airways obstructive ventilatory defect. There are no previous pulmonary function studies available for comparison.
== END ==
PROVIDERS: Family Provider Family Medicine; PCP Family Medicine; Visit Provider Internal Medicine Cardiovascular Disease
DX: R06.00 Dyspnea, unspecified (principal)
CPT/HCPCS: 94060; 94726; 94729

== ENCOUNTER → 2017-08-26 10:55 | Outpatient (CLI) | payer MEDICARE, OTHER, SELFPAY ==
[2017-08-13 14:08] VITALS: BMI 32.5
[2017-08-26 11:02] LABS: Bacteria 0 SEEN /hpf (None Seen); Mucous, Urine 0 SEEN /hpf (<or=2+); Red Blood Cells-Urine 0 SEEN /hpf (0-5); White Blood Cells 0 SEEN /hpf (0-5)
[2017-08-26 12:13] LABS: Color, Urine Yellow (Yellow); Glucose, Dipstick 250 mg/dl (Normal); Ketone-Dipstick Negative (Negative); Leukocyte Esterase-Dipstick Negative /ul (Negative); Nitrite-Dipstick Negative (Negative); Occult Blood-Urine Negative /ul (Negative); Protein-Dipstick Negative (Negative); Specific Gravity, Urine 1.015 (1.002-1.030); Urine Bilirubin Dipstick Negative (Negative); Urine Clarity Clear (Clear); Urine Urobilinogen Normal (Normal); Urine pH 6.5 (5.0 - 8.0)
[2017-08-26 12:21] LABS: Squamous Epithelial Cells - UA 0-5 SEEN /hpf (0-5)
[2017-08-26 12:26] LABS: D-Dimer Quantitative (DVT/PE) 0.33 FEU/ug/m (0.27-0.49)
[2017-08-26 12:33] LABS: Hemoglobin A1c 7.4 % (4.2-6.3)
[2017-08-26 12:52] LABS: ALB/GLOB Ratio 1.1 RATIO (0.9-2.4); AST(SGOT) 37 U/L (15-37); Alanine Aminotransfer ALT/SGPT 57 U/L (16-61); Albumin, Serum 3.5 g/dL (3.2-5.0); Alkaline Phosphatase 117 U/L (45-117); Anion Gap 6 (5-15); BUN 15 mg/dL (7-18); BUN/Creat Ratio 11.7 RATIO (10-20); Calcium,Total 8.6 mg/dL (8.5-10.1); Chloride 105 mmol/L (98-107); Creatinine, Serum 1.28 mg/dL (0.70-1.30); EST Glomerular Filtration Rate 59 mL/min (>60); Est Glom Filt Rate - Afr Amer 71 mL/min (>60); Globulin 3.3 g/dL (2.2-4.2); Glucose 203 mg/dL (74-106); Protein, Total 6.8 g/dL (6.4-8.2); Sodium Level 139 mmol/L (136-145)
[2017-08-26 13:01] LABS: BNP,B-Type NATRIURETIC PEPTIDE 33.3 pg/mL (0-100)
== END ==
PROVIDERS: Family Provider Family Medicine; PCP Family Medicine; Visit Provider Family Medicine
DX: E11.9 Type 2 diabetes mellitus without complications (principal); R60.0 Localized edema; I25.10 Atherosclerotic heart disease of native coronary artery without angina pectoris; N18.3 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, stage 3 (moderate); I12.9 Hypertensive chronic kidney disease with stage 1 through stage 4 chronic kidney disease, or unspecified chronic kidney disease
CPT/HCPCS: 36415; 80053; 81001; 83036; 83880; 85379

== ENCOUNTER 2017-08-27 18:41 | Emergency (ER) | payer MEDICARE, OTHER, SELFPAY ==
[2017-08-13 14:08] VITALS: BMI 32.5
[2017-08-27 18:42] VITALS: BP 141/97; PULSE 94; PULSE 97; RESP 17; RESP 21; TEMP 37; O2SAT 95; BMI 33.3
--- NOTE | 2017-08-27 19:25 | EKG12_ITS ---
Test Reason : CP Blood Pressure : / mmHG Vent. Rate : 097 BPM Atrial Rate : 097 BPM P-R Int : 156 ms QRS Dur : 086 ms QT Int : 348 ms P-R-T Axes : 058 054 047 degrees QTc Int : 441 ms Normal sinus rhythm Normal ECG Confirmed by JENNIFER BOLANOS ([id number]), film editor supervisor MARLENY SIMENTAL ([id number]) on 08/31/2017 3:57:45 PM Referred By: MARTÍN Confirmed By:JENNIFER BOLANOS
[2017-08-27] MEDS: LORazepam 2 MG/ML Syringe 1 MG IV ×2 (19:30→21:16)
--- NOTE | 2017-08-27 19:31 | CT_ITS ---
STUDY: CT ABDOMEN AND PELVIS WITHOUT CONTRAST REASON FOR EXAM: Male, 72 years old. Abdominal pain RADIATION DOSAGE (If Supplied By Facility): CTDIvol = ( 21.17 ) mGy, DLP = ( 1147.85 ) mGycm TECHNIQUE: Transaxial images were obtained from the dome of the diaphragm to the symphysis pubis without oral contrast, and without intravenous contrast. Sagittal and coronal images were reconstructed. Individualized dose optimization techniques were used for this CT. COMPARISON: CT examination of the abdomen pelvis from November 23, 2016 FINDINGS: Lung bases demonstrate no evidence for consolidative process. Bibasilar subsegmental atelectasis. Chronic fracture deformities of the right-sided rib noted. Pacemaker device likely present. Calcified granuloma in the right lower lobe. Subsegmental atelectasis in the lung bases. No pericardial effusion. Hepatic steatosis again seen. Prior cholecystectomy. Spleen appears unremarkable. The pancreas are within normal limits. The bowel gas pattern is nonobstructive. Postsurgical changes in the midline abdominal wall noted. No definite evidence for small bowel obstruction. Appendix appears unremarkable. No free air within the peritoneal cavity. No free fluid in the pelvis. Mild colonic diverticulosis without definite evidence for acute diverticulitis. No free air within the peritoneal cavity. No free fluid in the pelvis. Prostatic calcifications Degenerative changes in the sacroiliac joints. Small borderline in the iliac bones present. Degenerative changes in the lumbar spine mild wedging of the lower thoracic and upper lumbar vertebrae which appear chronic. Vascular calcifications of the abdominal aorta. No evidence for obstructive uropathy noted. No definite evidence for nephrolithiasis on the current examination. Cystic structure in the left renal pelvis measuring approximately 4.2 cm x 3.2 cm possibly a parapelvic cyst or calyceal diverticulum nonetheless stable since previous study. IMPRESSION: No definite evidence for small bowel obstruction. No evidence for acute appendicitis. Scattered colonic diverticulosis without definite evidence for acute diverticulitis. No evidence for obstructive uropathy. No evidence for nephrolithiasis. Low-attenuation structure in the left renal pelvis which appears stable since previous examination. Differential considerations include parapelvic cysts or calyceal diverticulum. Other differential possibilities include a low-grade neoplasm nonetheless stable since previous study Postsurgical changes in the abdominal wall with prior hernia repair Electronically Signed: Hayder Coy, at 20:14 EDT Tel , Service support , CT/Abdomen/Pelvis without Cont
[2017-08-27] MEDS: Ondansetron ODT 4 MG Tablet 8 MG PO (19:35)
[2017-08-27] MEDS: Morphine 4 MG/ML Syringe IV ×2 (19:37→21:11)
[2017-08-27] MEDS: 0.9% Normal Saline 1,000 ML 1000 ML IV (19:38)
[2017-08-27] MEDS: Aspirin 81 MG TAB.CHEW 324 MG PO (19:38)
[2017-08-27 19:43] LABS: Absolute Lymphocyte Count 1.64 X10^3/ul (0.83-4.51); Absolute Neutrophil Count 6.4 X10^3/uL (2.0-7.7); Basophil# 0.02 X10^3/uL; Basophil% 0.2 % (0-1); Eosinophil# 0.07 X10^3/uL; Eosinophils% 0.8 % (0-5); Hematocrit 41.8 % (40-54); Hemoglobin 13.7 g/dl (13.0-16.5); Lymphocyte # 1.64 X10^3/ul (4.0); Lymphocyte % 18.1 % (19-41); Mean Corp Hgb Conc 32.8 g/gl (32-36); Mean Corpuscular Volume 88.4 fL (80-94); Mean Platelet Vol. 12.3 fl (6.2-12.0); Monocyte# 0.92 X10^3/uL; Monocyte% 10.1 % (0-10); Neutrophil % 70.5 % (47-70); Platelet Count 157 K/mm3 (150-450); RBC Distribution Width SD 45.3 fl (35.1-43.9); Red Blood Count 4.73 M/mm3 (4.6-6.2); White Blood Count 9.1 K/mm3 (4.4-11.0)
[2017-08-27 19:51] LABS: Anion Gap 7 (5-15); BUN 21 mg/dL (7-18); BUN/Creat Ratio 7.6 RATIO (10-20); Calcium,Total 8.1 mg/dL (8.5-10.1); Chloride 102 mmol/L (98-107); Creatinine, Serum 2.75 mg/dL (0.70-1.30); EST Glomerular Filtration Rate 24 mL/min (>60); Est Glom Filt Rate - Afr Amer 29 mL/min (>60); Estimated Creatinine Clearance 24.28 ml/min; Glucose 146 mg/dL (74-106); Potassium 3.6 mmol/L (3.5-5.1); Sodium Level 136 mmol/L (136-145)
[2017-08-27 19:54] LABS: POSITIVE COUNT NO; POSITIVE DIFFERENTIAL NO; POSITIVE MORPHOLOGY NO
--- NOTE | 2017-08-27 19:55 | RAD_ITS ---
STUDY: X-RAY CHEST REASON FOR EXAM: Male, 72 years old. Body cramping for one hour and left-sided chest pressure TECHNIQUE: Single view of the chest was obtained COMPARISON: July 07, 2017 chest radiograph FINDINGS: No lung consolidation, pleural effusion or pneumothorax. Mild cardiomegaly. Calcifications of the aortic knob slightly elevated right hemidiaphragm. No definite evidence for acute osseous abnormalities. Degenerative changes in the thoracic spine. Deformity of the right-sided ribs likely chronic IMPRESSION: No evidence for focal airspace disease. Stable chest radiograph since previous exam Electronically Signed: Hayder Coy, at 20:18 EDT Tel , Service support , RAD/Chest 1 View (Portable)
[2017-08-27 19:58] VITALS: BP 157/86; PULSE 87; RESP 20; O2SAT 97
[2017-08-27 20:02] VITALS: BP 123/89; PULSE 83; RESP 17; O2SAT 97
--- NOTE | 2017-08-27 20:03 | ED.RN ---
PT, SPOUSE AND FAMILY DO NOT KNOW HOME MEDS. PT USES [facility], PCP OFFICE CLOSED.
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
[2017-08-27 21:41] VITALS: BP 123/75; PULSE 74; RESP 16; O2SAT 98
== END 2017-08-27 21:43 | disposition home or self-care (01) ==
LOC: ED 19:39
PROVIDERS: Emergency Provider Emergency Medicine; Family Provider Family Medicine; PCP Family Medicine
DX: G89.29 Other chronic pain (principal); R10.9 Unspecified abdominal pain; R07.9 Chest pain, unspecified; M79.606 Pain in leg, unspecified; E11.9 Type 2 diabetes mellitus without complications; E78.00 Pure hypercholesterolemia, unspecified; Z86.73 Personal history of transient ischemic attack (TIA), and cerebral infarction without residual deficits; N18.6 End stage renal disease; I12.0 Hypertensive chronic kidney disease with stage 5 chronic kidney disease or end stage renal disease
CPT/HCPCS: 71045; 74176; 80048; 84484; 85025; 93005; 99285; J7030; A4216

== ENCOUNTER → 2017-08-31 10:28 | Outpatient (CLI) | payer MEDICARE, OTHER, SELFPAY ==
[2017-08-13 14:08] VITALS: BMI 32.5
== END ==
PROVIDERS: Family Provider Family Medicine; PCP Family Medicine; Visit Provider Internal Medicine Cardiovascular Disease
DX: Z53.9 Procedure and treatment not carried out, unspecified reason (principal)

== ENCOUNTER → 2017-09-03 12:03 | Outpatient (CLI) | payer MEDICARE, OTHER, SELFPAY ==
[2017-08-13 14:08] VITALS: BMI 32.5
[2017-09-03 12:47] LABS: Absolute Lymphocyte Count 1.64 X10^3/ul (0.83-4.51); Absolute Neutrophil Count 5.9 X10^3/uL (2.0-7.7); Basophil# 0.02 X10^3/uL; Basophil% 0.2 % (0-1); Eosinophil# 0.05 X10^3/uL; Eosinophils% 0.6 % (0-5); Hemoglobin 15.4 g/dl (13.0-16.5); Lymphocyte # 1.64 X10^3/ul (4.0); Lymphocyte % 19.3 % (19-41); Mean Corp Hgb Conc 32.8 g/gl (32-36); Mean Corpuscular Hgb 29.1 pg (27.0-32.0); Mean Corpuscular Volume 88.8 fL (80-94); Mean Platelet Vol. 11.7 fl (6.2-12.0); Monocyte# 0.84 X10^3/uL; Monocyte% 9.9 % (0-10); Neutrophil # 5.91 X10^3/uL (2.7-7.7); Neutrophil % 69.6 % (47-70); Platelet Count 165 K/mm3 (150-450); RBC Distribution Width CV 14.1 % (11.6-14.6); RBC Distribution Width SD 46.1 fl (35.1-43.9); Red Blood Count 5.29 M/mm3 (4.6-6.2); White Blood Count 8.5 K/mm3 (4.4-11.0)
[2017-09-03 12:51] LABS: POSITIVE COUNT NO; POSITIVE DIFFERENTIAL NO; POSITIVE MORPHOLOGY NO
[2017-09-03 13:11] LABS: AST(SGOT) 36 U/L (15-37); Alanine Aminotransfer ALT/SGPT 61 U/L (16-61); Albumin, Serum 3.8 g/dL (3.2-5.0); Alkaline Phosphatase 124 U/L (45-117); Anion Gap 8 (5-15); BUN 23 mg/dL (7-18); BUN/Creat Ratio 15.4 RATIO (10-20); CRP 3.25 mg/L (0.0-3.0); Calcium,Total 9.1 mg/dL (8.5-10.1); Chloride 102 mmol/L (98-107); Creatinine, Serum 1.49 mg/dL (0.70-1.30); EST Glomerular Filtration Rate 49 mL/min (>60); Est Glom Filt Rate - Afr Amer 60 mL/min (>60); Globulin 3.9 g/dL (2.2-4.2); Glucose 139 mg/dL (74-106); Potassium 4.5 mmol/L (3.5-5.1); Protein, Total 7.7 g/dL (6.4-8.2); Sodium Level 135 mmol/L (136-145)
[2017-09-03 13:37] LABS: Lactic Acid 2.7 mmol/L (0.4-2.0)
[2017-09-04 08:57] LABS: Erythrocyte Sedimentation Rate 16 mm/hr (0-20)
== END ==
PROVIDERS: Family Provider Family Medicine; PCP Family Medicine; Visit Provider Family Medicine
DX: R10.9 Unspecified abdominal pain (principal); K92.1 Melena; I25.10 Atherosclerotic heart disease of native coronary artery without angina pectoris; N18.3 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, stage 3 (moderate)
CPT/HCPCS: 36415; 80053; 83605; 85025; 85652; 86140

== ENCOUNTER 2017-09-03 14:51 | Emergency (ER) | payer MEDICARE, OTHER, SELFPAY ==
[2017-08-13 14:08] VITALS: BMI 32.5
[2017-09-03 14:52] VITALS: BP 138/97; PULSE 96; RESP 17; TEMP 36.9; O2SAT 97; BMI 31.8
--- NOTE | 2017-09-03 15:19 | CT_ITS ---
STUDY: CT ABDOMEN AND PELVIS WITH CONTRAST REASON FOR EXAM: Male, 72 years old. Abdominal pain RADIATION DOSAGE (If Supplied By Facility): CTDIvol = ( 19.76 ) mGy, DLP = ( 2344.84 ) mGycm TECHNIQUE: Transaxial images were obtained from the dome of the diaphragm to the symphysis pubis without oral contrast. 75 ml of Isovue 300 contrast was administered. Sagittal and coronal images were reconstructed. Individualized dose optimization techniques were used for this CT. COMPARISON: August 27, 2017 FINDINGS: There is small calcified granuloma in left lower lobe.. The visualized portions of the heart are within normal limits. Liver is fatty infiltrated without mass or bile duct dilatation. Status post cholecystectomy. Normal spleen. Normal pancreas. Normal bilateral adrenal glands. No evidence for renal obstruction. There are no masses on the right. There is a large parapelvic cyst in left kidney. There is also a small cortical cyst. Normal visualized stomach. Normal small intestine. Mild diverticular disease of the descending and sigmoid colon without evidence for acute diverticulitis The appendix is visualized and appears normal. Mild atherosclerotic changes of the aorta without evidence for aneurysm.. Normal inferior vena cava. Normal retroperitoneum. Normal urinary bladder. There are postsurgical changes in the midline. Within the anterior mid abdominal cavity immediately below the surgical wound there is a ellipsoid shaped fluid density mass measuring 4.4 x 2.45 cm most likely representing resorbing hematoma or seroma. This has decreased in size since previous study. Lumbar spine demonstrates mild spondylosis. There are arthritic changes of the right sacroiliac joint. There are sclerotic densities seen within the ilium bilaterally which are nonspecific in etiology. Blastic metastasis cannot be excluded and clinical correlation is recommended. CT/Abdomen/Pelvis WITH Contrast IMPRESSION: Nonspecific fatty infiltration of the liver status post cholecystectomy. Small fluid density mass within the anterior mid abdominal cavity most likely representing postsurgical seroma which has decreased in size since prior study 2 left renal cysts Mild diverticular disease of colon without evidence for acute diverticulitis. Other findings as above Electronically Signed: Alexandr Josue MD at 17:57 EDT , Service support ,
--- NOTE | 2017-09-03 15:20 | EKG12_ITS ---
Test Reason : AB LABS Blood Pressure : / mmHG Vent. Rate : 088 BPM Atrial Rate : 088 BPM P-R Int : 156 ms QRS Dur : 086 ms QT Int : 356 ms P-R-T Axes : 054 039 072 degrees QTc Int : 430 ms Normal sinus rhythm Normal ECG Confirmed by NAOMIE PALOMO, PARVEZ ([id number]), editor newspaper MARLENY SIMENTAL ([id number] on 09/06/2017 2:17:32 PM Referred By: Confirmed By:PARVEZ AKBAR MD
[2017-09-03 15:21] VITALS: BP 150/96; PULSE 91; RESP 22; O2SAT 94
[2017-09-03] MEDS: Ondansetron 4 MG/2 ML Vial IV (15:51)
[2017-09-03] MEDS: 0.9% Normal Saline 1,000 ML 1000 ML IV (15:51)
[2017-09-03 18:00] VITALS: BP 108/75; PULSE 76; RESP 16; O2SAT 94
[2017-09-03 20:06] VITALS: BP 133/83; PULSE 73; RESP 16; O2SAT 97
--- NOTE | 2017-09-03 20:12 | ED.DCSUM_ITS ---
- ER Visit Summary Date of Service: 09/03/17 Chief Complaint: [Abdominal pain] History of Present Illness: The patient is a 72 M [presents to the emergency department with abdominal pain for a month. Patient states that he is had intermittent severe pain and cramping. Patient states that his abdomen feels bloated. Patient initially had constipation but then started having diarrhea a week ago. Patient having 4-6 watery stools per day. Patient at times noted some blood in the stool intermittently. Patient denies fever. Patient was seen in his primary care physician's office today and had blood work drawn and once resulted was called and told to come to the emergency department because he had an elevated lactate of 2.7 and there was concern for ischemic colitis.] Patient also had cardiac stent placed a couple of weeks ago. And states that he has had some intermittent mild chest discomfort. Chest discomfort at this time. Physical Examination: [HEENT-PERRLA, EOMI. Cranial nerves II through XII grossly intact. TMs clear. Mucous membranes moist. No adenopathy. Cardiovascular-regular rate and rhythm without murmur or ectopy Lungs-clear to auscultation, chest wall stable without crepitus or subcu emphysema Abdomen-normoactive bowel sounds, soft. Mild diffuse tenderness. There is no rebound, rigidity, or perineal signs. Extremities-intact ?4, normal range of motion, normal pulses, atraumatic] Test Results: [Shows sinus rhythm with a ventricular rate of 88 bpm with no acute ST segment changes. Troponin was less than 0.02. CT scan of the abdomen pelvis with IV and p.o. contrast obtained showed diverticulosis but no evidence of diverticulitis. Patient had a normal appendix. Patient had some sclerotic lesions noted in both ileum could not rule out malignancy or blastic lesions.] C. difficile was negative. Enteric pathogens ordered and will be pending. Emergency Department Course and Treatment: [Patient case was discussed with Dr. Victor M Luke who is the patient's primary care physician. Patient will be discharged home with referral to Dr. Elías Almodovar for follow-up for possible colonoscopy and EGD and further evaluation of his abdominal pain.] Treatment Plan: [Patient will be given a prescription for Zofran] Disposition: [Discharged to home in stable condition. Patient advised to return if worsening pain, fever, dehydration, or condition should worsen in any way.] Impression: [Abdominal pain-etiology uncertain] This note was generated with [employer] dictation software. It may contain incorrect words, spelling, and punctuation that were not noted in review of the chart prior to signing ED Disposition - Plan for ED Patient: Chief Complaint: Abn Labs Referrals: Victor M Luke DO [Primary Care Provider] -
--- NOTE | 2017-09-03 20:12 | ED.DEP ---
ED Disposition - Plan for ED Patient: Chief Complaint: Abn Labs Instructions: ED Abdominal Pain Unkn Cause Male Prescriptions: Ondansetron [Zofran Odt] 4 mg PO Q8H PRN PRN #10 tab PRN Reason: Nausea Referrals: Victor M Luke DO [Primary Care Provider] - Elías Almodovar MD [STAFF PHYSICIAN] - 3-5 Days
[2017-09-03 20:22] VITALS: BP 133/83; PULSE 74; RESP 16; O2SAT 95
--- NOTE | 2017-09-03 20:23 | NURSING ---
DID NOT NEED HOMEPACK, PT WILL FILL RX OF ZOFRAN THAT WAS PRESCRIBED.
== END 2017-09-03 20:24 | disposition home or self-care (01) ==
PROVIDERS: Emergency Provider Emergency Medicine; Family Provider Family Medicine; PCP Family Medicine
DX: R10.9 Unspecified abdominal pain (principal); K57.90 Diverticulosis of intestine, part unspecified, without perforation or abscess without bleeding; R11.0 Nausea; R19.7 Diarrhea, unspecified; I10 Essential (primary) hypertension; E78.00 Pure hypercholesterolemia, unspecified; E11.9 Type 2 diabetes mellitus without complications; J44.9 Chronic obstructive pulmonary disease, unspecified; I25.10 Atherosclerotic heart disease of native coronary artery without angina pectoris; Z86.73 Personal history of transient ischemic attack (TIA), and cerebral infarction without residual deficits
CPT/HCPCS: 36415; 74177; 80053; 83605; 84484; 85025; 85652; 86140; 87493; 87506; 93005; 99282; J7030; Q9967; A4216; J2405

== ENCOUNTER → 2017-09-21 09:32 | Outpatient (CLI) | payer MEDICARE, OTHER, SELFPAY ==
[2017-08-13 14:08] VITALS: BMI 32.5
[2017-09-21 12:35] LABS: Anion Gap 4 (5-15); BUN 16 mg/dL (7-18); BUN/Creat Ratio 12.1 RATIO (10-20); Calcium,Total 8.5 mg/dL (8.5-10.1); Chloride 108 mmol/L (98-107); Creatinine, Serum 1.32 mg/dL (0.70-1.30); EST Glomerular Filtration Rate 57 mL/min (>60); Est Glom Filt Rate - Afr Amer 69 mL/min (>60); Glucose 194 mg/dL (74-106); Potassium 4.5 mmol/L (3.5-5.1); Sodium Level 138 mmol/L (136-145)
== END ==
PROVIDERS: Family Provider Family Medicine; PCP Family Medicine; Visit Provider Family Medicine
DX: N18.3 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, stage 3 (moderate) (principal)
CPT/HCPCS: 36415; 80048

== ENCOUNTER → 2017-11-12 11:36 | Outpatient (CLI) | payer MEDICARE, OTHER, SELFPAY ==
[2017-08-13 14:08] VITALS: BMI 32.5
[2017-11-12 15:50] LABS: Anion Gap 10 (5-15); BUN 15 mg/dL (7-18); BUN/Creat Ratio 11.1 RATIO (10-20); Calcium,Total 8.7 mg/dL (8.5-10.1); Chloride 106 mmol/L (98-107); Creatinine, Serum 1.35 mg/dL (0.70-1.30); EST Glomerular Filtration Rate 55 mL/min (>60); Est Glom Filt Rate - Afr Amer 67 mL/min (>60); Glucose 162 mg/dL (74-106); Potassium 4.7 mmol/L (3.5-5.1); Sodium Level 141 mmol/L (136-145)
[2017-11-12 15:59] LABS: Hemoglobin A1c 6.7 % (4.2-6.3)
== END ==
PROVIDERS: Family Provider Family Medicine; PCP Family Medicine; Visit Provider Family Medicine
DX: E11.9 Type 2 diabetes mellitus without complications (principal); N18.3 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, stage 3 (moderate)
CPT/HCPCS: 36415; 80048; 83036

== ENCOUNTER → 2017-11-15 14:55 | Outpatient (CLI) | payer MEDICARE, OTHER, SELFPAY ==
[2017-08-13 14:08] VITALS: BMI 32.5
[2017-11-15 18:04] LABS: Absolute Lymphocyte Count 1.95 X10^3/ul (0.83-4.51); Absolute Neutrophil Count 6.2 X10^3/uL (2.0-7.7); Basophil# 0.02 X10^3/uL; Basophil% 0.2 % (0-1); Eosinophil# 0.08 X10^3/uL; Eosinophils% 0.8 % (0-5); Hematocrit 49.1 % (40-54); Hemoglobin 15.9 g/dl (13.0-16.5); Lymphocyte # 1.95 X10^3/ul (4.0); Lymphocyte % 20.7 % (19-41); Mean Corp Hgb Conc 32.4 g/gl (32-36); Mean Corpuscular Hgb 28.5 pg (27.0-32.0); Mean Platelet Vol. 12.3 fl (6.2-12.0); Monocyte# 1.13 X10^3/uL; Neutrophil # 6.22 X10^3/uL (2.7-7.7); Neutrophil % 65.9 % (47-70); Platelet Count 213 K/mm3 (150-450); RBC Distribution Width CV 14.1 % (11.6-14.6); RBC Distribution Width SD 45.7 fl (35.1-43.9); Red Blood Count 5.58 M/mm3 (4.6-6.2); White Blood Count 9.4 K/mm3 (4.4-11.0)
[2017-11-15 18:07] LABS: POSITIVE COUNT NO; POSITIVE DIFFERENTIAL NO; POSITIVE MORPHOLOGY NO
[2017-11-15 18:18] LABS: Anion Gap 11 (5-15); BUN 19 mg/dL (7-18); CPK Total, Creatine Kinase 53 U/L (39-308); Calcium,Total 9.2 mg/dL (8.5-10.1); Chloride 102 mmol/L (98-107); Creatinine, Serum 1.46 mg/dL (0.70-1.30); EST Glomerular Filtration Rate 50 mL/min (>60); Est Glom Filt Rate - Afr Amer 61 mL/min (>60); Glucose 86 mg/dL (74-106); Potassium 3.9 mmol/L (3.5-5.1); Sodium Level 141 mmol/L (136-145); Thyroid Stim Hormone (TSH) 3.38 uIU/mL (0.358-3.74)
== END ==
PROVIDERS: Family Provider Family Medicine; PCP Family Medicine; Visit Provider Family Medicine
DX: N18.3 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, stage 3 (moderate) (principal); R07.9 Chest pain, unspecified; R53.83 Other fatigue; I12.9 Hypertensive chronic kidney disease with stage 1 through stage 4 chronic kidney disease, or unspecified chronic kidney disease
CPT/HCPCS: 36415; 80048; 82550; 84443; 84484; 85025

== ENCOUNTER 2017-11-30 17:57 | Observation (INO) | payer MEDICARE, OTHER, SELFPAY ==
[2017-08-13 14:08] VITALS: BMI 32.5
[2017-11-30] VITALS (10 sets, daily range): BP systolic 132–167; BP diastolic 74–89; PULSE 65–90; RESP 16–20; TEMP 36.7–37.2; O2SAT 96–99; BMI 32.5; BMI 32.0
--- NOTE | 2017-11-30 18:12 | EKG12_ITS ---
Test Reason : CP Blood Pressure : / mmHG Vent. Rate : 091 BPM Atrial Rate : 091 BPM P-R Int : 162 ms QRS Dur : 096 ms QT Int : 352 ms P-R-T Axes : 061 058 069 degrees QTc Int : 432 ms Normal sinus rhythm Inferior MA, age undetermined, cannot be excluded Confirmed by RACH PALOMO, MUKUL ([id number]), industrial editor MARLENY SIMENTAL ([id number]) on 12/02/2017 11:46:53 AM Referred By: PERI Confirmed By:MUKUL LOYD MD
--- NOTE | 2017-11-30 18:15 | ED.DCSUM_ITS ---
- ER Visit Summary Date of Service: 11/30/17 Chief Complaint: Chest pain History of Present Illness: The patient is a [address] Olmstead and Dr. Luke. He had a stent placed in his circumflex artery August of this year. He reports that over the past 2 weeks he has had intermittent left chest heaviness that is brought on by walking sometimes and relieved by rest sometimes. He reports that this lasts 10-15 minutes and is 4 out of 10 at worst. Is 2 out of 10 currently. Is associated with nausea, diaphoresis, and shortness of breath. There is no radiation of his pain. He reports that this is similar to the pain he had prior to his stent. Physical Examination: Vitals: Stable. Afebrile. General: Well-nourished and well-developed. Head: Normocephalic atraumatic. Neck: Supple, no lymphadenopathy. No JVD. Nontender. Cardiovascular: Regular rate and rhythm. No murmurs. Respiratory: No respiratory distress. Clear to auscultation bilaterally. Abdominal: Soft, nontender, nondistended, normal bowel sounds. No guarding, rebound, or peritoneal signs. Back: Nontender. Extremities: Nontender, no edema. Skin: Normal color, no rash. Neurologic: Alert and oriented ?3. Cranial nerves II through XII are intact. Normal strength and sensation. Psych: Normal affect. Test Results: EKG is sinus at [address] changes. Is unchanged from August of this year. Repeat EKG is unchanged. CBC is normal. Chem-7 is more for creatinine 1.38 and glucose of 204. Troponin is negative. Chest x- ray shows chronic changes. Emergency Department Course and Treatment: Patient was given aspirin p.o. and is resting comfortably. Patient complained of worsening pain and had a repeat EKG was unchanged. Is given dose of morphine IV. Treatment Plan: Patient was discussed with Dr. Leo. He will be admitted to the hospital for further evaluation and treatment. Disposition: Admitted in improved condition. Impression: 1. Chest pain. 2. Chronic renal insufficiency. 3. DEXTER score of 4. This note was generated with [employer] software. It may contain incorrect words, spelling, and punctuation that were not noted in review of the chart prior to signing ED Disposition - Plan for ED Patient: Chief Complaint: Chest Pain Referrals: Victor M Luke DO [Primary Care Provider] -
--- NOTE | 2017-11-30 18:15 | RAD_ITS ---
STUDY: X-RAY CHEST REASON FOR EXAM: Male, 72 years old. Heaviness in the chest. Chest pain. COPD. TECHNIQUE: Frontal and lateral views of the chest. COMPARISON: 08/27/2017, 01/20/2017 FINDINGS: The lungs are clear and expanded. Stable bilateral pleural plaques along the lateral chest ruelas. Normal size heart. Normal mediastinum and melanie. Normal visualized pulmonary arteries. There is atherosclerotic tortuosity of the aortic arch and descending thoracic aorta. Normal visualized thoracic spine. Previous cervical spine surgery. Previous left shoulder surgery. There is no demonstrated abnormality of the visualized soft tissue structures of the upper abdomen. RAD/Chest 1 View (Portable) IMPRESSION: No change or definite acute chest disease. Stable rather prominent bilateral pleural plaques. Electronically Signed: Hector Loya MD at 18:48 EDT , Service support ,
[2017-11-30] MEDS: Aspirin 81 MG TAB.CHEW 324 MG PO (18:28)
[2017-11-30] MEDS: 0.9% Normal Saline 1,000 ML 150 ML IV (18:28)
[2017-11-30 18:33] LABS: Absolute Lymphocyte Count 2.08 X10^3/ul (0.83-4.51); Absolute Neutrophil Count 5.8 X10^3/uL (2.0-7.7); Basophil# 0.03 X10^3/uL; Basophil% 0.3 % (0-1); Eosinophil# 0.07 X10^3/uL; Eosinophils% 0.8 % (0-5); Hemoglobin 15.9 g/dl (13.0-16.5); Lymphocyte # 2.08 X10^3/ul (4.0); Lymphocyte % 23.6 % (19-41); Mean Corp Hgb Conc 33.1 g/gl (32-36); Mean Corpuscular Hgb 29.3 pg (27.0-32.0); Mean Corpuscular Volume 88.6 fL (80-94); Mean Platelet Vol. 11.9 fl (6.2-12.0); Monocyte# 0.83 X10^3/uL; Monocyte% 9.4 % (0-10); Neutrophil # 5.77 X10^3/uL (2.7-7.7); Neutrophil % 65.4 % (47-70); Platelet Count 164 K/mm3 (150-450); RBC Distribution Width SD 45.7 fl (35.1-43.9); Red Blood Count 5.42 M/mm3 (4.6-6.2); White Blood Count 8.8 K/mm3 (4.4-11.0)
[2017-11-30 18:34] LABS: POSITIVE COUNT NO; POSITIVE DIFFERENTIAL NO; POSITIVE MORPHOLOGY NO
[2017-11-30 18:42] LABS: Anion Gap 6 (5-15); BUN 18 mg/dL (7-18); Chloride 102 mmol/L (98-107); Creatinine, Serum 1.38 mg/dL (0.70-1.30); EST Glomerular Filtration Rate 54 mL/min (>60); Est Glom Filt Rate - Afr Amer 65 mL/min (>60); Estimated Creatinine Clearance 48.39 ml/min; Glucose 204 mg/dL (74-106); Potassium 3.8 mmol/L (3.5-5.1); Sodium Level 137 mmol/L (136-145)
--- NOTE | 2017-11-30 19:16 | EKG12_ITS ---
Test Reason : REPEAT Blood Pressure : / mmHG Vent. Rate : 071 BPM Atrial Rate : 071 BPM P-R Int : 164 ms QRS Dur : 094 ms QT Int : 380 ms P-R-T Axes : 061 048 064 degrees QTc Int : 412 ms Normal sinus rhythm Inferior MD, age undetermined, cannot be excluded Confirmed by RACH PALOMO, MUKUL ([id number]), film editor supervisor MARLENY SIMENTAL ([id number]) on 12/02/2017 11:49:27 AM Referred By: PERI Confirmed By:MUKUL LOYD MD
[2017-11-30] MEDS: Morphine 4 MG/ML Syringe IV (19:26)
--- NOTE | 2017-11-30 19:38 | PCM.HP.STD ---
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 PCI-POBA-Cx and Stent-Mid RCA x 2 Multi Link Mini Vision Rx Stent 4.0 x 28 mm 01/21/2006 (6) Type 2 diabetes mellitus without complications Status: Chronic Qualifiers: Diabetes mellitus usp insulin use: without usp use Qualified Code(s): E11.9 - Type 2 diabetes mellitus without complications (7) Hypertension Status: Chronic Qualifiers: Hypertension type: essential hypertension Qualified Code(s): I10 - Essential (primary) hypertension (8) Hyperlipidemia Status: Chronic Qualifiers: Hyperlipidemia type: unspecified Qualified Code(s): E78.5 - Hyperlipidemia, unspecified (9) History of coronary artery stent placement Status: Chronic Comment: [id number] 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 ED on 11/30/17 with a several month history of ongoing intermittent chest heaviness which he states is long lasting, often hours-day, intermittent, independent of activity or effort with now ~ 2 week onset of increased 6/10 chest pressure, midsternal and mildly to the left side with associated nausea, diaphoresis and dyspnea lasting ~10-15 minutes usually 6 out of 10 rating sometimes occurring with more activity and sometimes improving with rest with onset today additionally of left arm discomfort prompting his call to his manager rail, Dr. Olmstead who requested presentation to the emergency room. He had been evaluated recently outpatient per his manager rail secondary to this ongoing intermittent discomfort with planned stress testing at that time however he had as noted the new symptoms prompting ED presentation. In the ED work-up included T 99, heart rate 88, BP 132/86, respiratory rate 16, 98% room air, unremarkable CBC, BMP with BUN/creatinine 18/1.38, glucose 204, troponin less than 0.015, EKG initial and repeat with sinus rhythm with no acute evidence of ischemia, chest x-ray with chronic changes. In the emergency room patient administered morphine, aspirin, normal saline. 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 PCI-POBA-Cx and Stent-Mid RCA x 2 Multi Link Mini Vision Rx Stent 4.0 x 28 mm 01/21/2006 Type 2 diabetes mellitus without complications (Chronic) Hypertension (Chronic) Hyperlipidemia (Chronic) Old myocardial infarction (Chronic) Obesity (Chronic) History of coronary artery stent placement (Chronic 08/13/17) [id number] 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 PCI-POBA-Cx and Stent-Mid RCA x 2 Multi Link Mini Vision Rx Stent 4.0 x 28 mm 01/21/2006 Medical History: Medical History (Last Reviewed 09/15/17 @ 10:19 by Indigo Gaytan) Atherosclerotic heart disease [place] coronary artery w/angina pectoris (Chronic) I25.119 [id number] 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 [Ecotrin] 81 mg PO DAILY@0800 01/21/17 Cholecalciferol (Vitamin D3) 4,000 unit PO DAILY 01/21/17 [Vitamin D3] Clopidogrel Bisulfate [Clopidogrel] 75 mg PO DAILY 01/21/17 Cyanocobalamin (Vitamin B-12) 1,000 mcg PO DAILY 01/21/17 [Vitamin B-12] Isosorbide Mononitrate [Imdur] 120 mg PO DAILY 01/21/17 Magnesium Oxide [Magnesium] 800 mg PO DAILY 01/21/17 Nitroglycerin [Nitrostat] 0.3 mg SL UD PRN 01/21/17 Pantoprazole Sodium [Protonix] 40 mg PO BID 01/21/17 Spironolactone [Aldactone] 50 mg PO DAILY 01/21/17 potassium chloride ER 20 mEq 60 meq PO BID tab 08/30/17 tablet,extended release furosemide 80 mg tablet 80 mg PO DAILY tab 09/03/17 albuterol sulfate HFA 90 2 puff INHALATION Q6H PRN #1 device 09/15/17 mcg/actuation aerosol inhaler umeclidinium 62.5 mcg-vilanterol 1 inh INHALATION Q24H #1 device 09/15/17 25 mcg/actuation powdr for inhalation Glimepiride [Amaryl] 1 mg PO DAILY 11/30/17 Metoprolol Tartrate 50 mg PO BID 11/30/17 Pravastatin Sodium [Pravachol] 20 mg PO QHS 11/30/17 Venlafaxine XR [Effexor Xr] 150 mg PO DAILY 11/30/17 Surgical History: Surgical History (Last Reviewed 09/15/17 @ 10:19 by Indigo Gaytan) History of coronary artery stent placement (Chronic) Onset Date: 08/13/17 Z95.5 [id number] 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 Psychiatric History: Anxiety, Depression Lives: Spouse/ Significant Other Smoking Status: Former smoker - Quit approximately 2024 years prior with history starting at age 21 1-2 pack per day with the last 5-10 years transition to pipe tobacco. Tobacco Use: Non-smoker Alcohol: None Drugs: None - *Family History Maternal History Items: No pertinent history Paternal History Items: - - Father with a history of Parkinson's disease. Review of Systems Constitutional: Reports: Fatigue. Denies: Chills, Fever, Weight Change HEENT: Denies: Head Aches, Sinus Congestion, Sinus Drainage Cardiovascular: Reports: Chest Pain, Chest Pressure, Chest Tightness, Heaviness. Denies: Light Headedness, Orthopnea, Palpitations, Syncope Respiratory: Reports: Shortness of Breath, Shortness of breath upon exertion. Denies: Cough, Shortness of breath at rest, Sputum production, Wheezing Gastrointestinal: Reports: Nausea. Denies: Abdominal Pain, Vomiting Genitourinary: Denies: Dysuria Musculoskeletal: Denies: Joint Pain, Joint Tenderness Skin: Denies: Rash, Wounds Neurological: Denies: Numbness, Tingling, Focal weakness Psychiatric: Reports: Anxiety, Depression. Denies: Homicidal Ideations, Suicidal Ideations Hematologic/ Lymphatic: Denies: Easy Bruising, Easy Bleeding VTE Information - Inpt Only VTE Present on Admission: No VTE Mechan Device Prophylaxis: SCD's VTE Pharm Prophylaxis ordered?: Yes Patient Problems: Active and Suspected Problems (Last Reviewed 09/15/17 @ 10:19 by Indigo Gaytan) Chest pain (Acute) Subjective: Seated upright in the ED bed, notes ongoing discomfort currently but does not appear any acute pain, notes improved since initial presentation, 4 out of 10 currently Objective: Physical Examination: General: awake, alert, oriented x 3 and cooperative, seated upright in the ED bed in no apparent distress. Skin: normal color, turgor, no icterus, cyanosis. HEENT: AT/NC, EOMI, PERRLA, MMM, no carotid bruits or JVD noted. Lungs: CTA bilaterally, moderate effort, mild decrease BL bases, no rales, ronchi or wheezing. Heart: Regular rate and rhythm; no gallop, rub audible. Abdomen: soft, obese, NTTP, ND, normal BS, no HSM. Extremities: no cyanosis, clubbing, or edema. Neurological: patient awake, alert, oriented x 3; cognitive function intact; pupils equally reactive to light and accomodation; cranial nerves II-XII grossly normal, moving all 4 extremities, no focal deficits, strength mildly globally decreased. Psychiatric: affect appears normal, no acute evidence of depressive or anxiety feelings. - Physical Exam Vital Signs Temp Pulse Resp BP Pulse Ox 99.0 F 88 16 132/86 H 98 11/30/17 17:58 11/30/17 19:22 11/30/17 19:22 11/30/17 19:22 11/30/17 19:22 Oxygen Delivery Method Room Air Weight: 220 lb 0.341 oz Body Mass Index (BMI) 32.5 Finger Stick Blood Glucose 149 Laboratory Tests Past 24 Hrs 11/30/17 11/30/17 18:00 18:00 WBC 8.8 RBC 5.42 Hgb 15.9 Hct 48.0 MCV 88.6 MCH 29.3 MCHC 33.1 RDW 14.0 RDW Differential 45.7 H Plt Count 164 MPV 11.9 Immature Gran % (Auto) 0.500 Neut % (Auto) 65.4 Lymph % (Auto) 23.6 [place] % (Auto) 9.4 Eos % (Auto) 0.8 Baso % (Auto) 0.3 Absolute Neuts (auto) 5.8 Absolute Lymphs (auto) 2.08 Total Counted Not Reportable Sodium 137 Potassium 3.8 Chloride 102 Carbon Dioxide 29.0 Anion Gap 6 BUN 18 Creatinine 1.38 H Estim Creat Clear Calc 48.39 Est GFR (MDRD) Af Amer 65 Est GFR (MDRD) Non-Af 54 L BUN/Creatinine Ratio 13.0 Glucose 204 H Calcium 9.0 Troponin I < 0.015 Assessment/Plan All Active Problems (Last Reviewed 09/15/17 @ 10:19 by Indigo Gaytan) Chest pain (Acute) The patient is a 72 y/o M w/ PMHx: History of Tobacco use, COPD, Obesity, MATTHEW, CKD stage III, CAD s/p PCI x 6 w/ last intervention [id number] 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 ED on 11/30/17 with a several month history of ongoing intermittent chest heaviness which he states is long lasting, often hours-day, intermittent, independent of activity or effort with now ~ 2 week onset of increased 6/10 chest pressure, midsternal and mildly to the left side with associated nausea, diaphoresis and dyspnea lasting ~10-15 minutes usually 6 out of 10 rating sometimes occurring with more activity and sometimes improving with rest with onset today additionally of left arm discomfort prompting his call to his manager rail, Dr. Olmstead who requested presentation to the emergency room. (1) Chest Pain: T 99, heart rate 88, BP 132/86, respiratory rate 16, 98% room air, unremarkable CBC, BMP with BUN/creatinine 18/1.38, glucose 204, troponin less than 0.015, EKG initial and repeat with sinus rhythm with no acute evidence of ischemia, chest x-ray with chronic changes. Will admit to PCU, consult Cardiology per Dr. Olmstead request, place on a monitored bed to assure no acute myocardial infarction with serial cardiac enzymes and EKGs. Maintain NPO on IVFs after midnight pending their evaluation, readying for possible stress versus cardiac catheterization. ASA, NG, morphine. 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 Will continue home regimen asa, plavix, statin, BB. (3) Hypertension: Continue home regimen including Lasix, isosorbide, metoprolol, spironolactone, PRN hydralazine. (4) Hyperlipidemia: Continue home statin regimen. AM FLP. (5) Chronic COPD w/ Former Tobacco use: ATC duonebs, PRN albuterol, HOB, IS parameters. (6) Diabetes mellitus type II: Hold oral home regimen, ADA diet until NPO status, accu checks w/ ISS, nutrition consultation for education and teaching. (7) Chronic Kidney Disease Stage III: Admission BUN/Cr 18/1.38, baseline renal function appears similar, repeat BMP in AM. (8) Obesity: Weight loss and lifestyle changes encouraged, Nutrition consulted for education and teaching. (9) MATTHEW: CPAP q HS. (10) DVT Prophylaxis: SCDs, renally dosed lovenox. Code Visit OBSV E&M: 78338 Initial observation care L3
--- NOTE | 2017-11-30 19:42 | NURSING ---
Called ED equipment operator, Erica at this time to confirm Pt okay to come to PCU.
[2017-11-30 21:36] LABS: Magnesium 2.1 mg/dL (1.6-2.6)
[2017-11-30] MEDS: proMETHazine 25 MG/ML Syringe 12.5 MG IV (21:51)
[2017-11-30] MEDS: Pravastatin 20 MG Tablet PO (21:51)
[2017-11-30] MEDS: Pantoprazole Sodium 40 MG Tablet PO (21:51)
[2017-11-30] MEDS: 0.9% NaCl Peripheral Flush Adult/Peds IV (21:51)
[2017-11-30] MEDS: Metoprolol Tartrate 50 MG Tablet PO (21:52)
[2017-11-30] MEDS: 0.9% Normal Saline 1,000 ML 100 ML IV (22:12)
[2017-11-30 22:46] LABS: Bedside Glucose 106 mg/dL (70-110)
--- NOTE | 2017-11-30 23:22 | EKG12_ITS ---
Test Reason : REPEAT Blood Pressure : / mmHG Vent. Rate : 061 BPM Atrial Rate : 061 BPM P-R Int : 160 ms QRS Dur : 086 ms QT Int : 396 ms P-R-T Axes : 067 054 072 degrees QTc Int : 398 ms Normal sinus rhythm Nonspecific T wave abnormality Confirmed by RACH PALOMO, MUKUL ([id number]), acquisition editor MARLENY SIMENTAL ([id number]) on 12/06/2017 4:01:01 PM Referred By: KRISTINA Confirmed By:MUKUL LOYD MD
[2017-12-01] VITALS (23 sets, daily range): BP systolic 93–123; BP diastolic 59–76; PULSE 44–89; RESP 16–18; TEMP 36.2–36.9; O2SAT 92–98
[2017-12-01] MEDS: Morphine 2 MG/ML Syringe IV (02:00)
[2017-12-01] MEDS: 0.9% NaCl Peripheral Flush Adult/Peds IV (02:00)
[2017-12-01] MEDS: 0.9% Normal Saline 1,000 ML 100 ML IV ×2 (02:09→20:15)
--- NOTE | 2017-12-01 05:55 | EKG12_ITS ---
Test Reason : CP Blood Pressure : / mmHG Vent. Rate : 051 BPM Atrial Rate : 051 BPM P-R Int : 164 ms QRS Dur : 084 ms QT Int : 436 ms P-R-T Axes : 068 069 075 degrees QTc Int : 401 ms Sinus bradycardia Nonspecific T wave abnormality Confirmed by RACH PALOMO, MUKUL ([id number]), fan mail editor MARLENY SIMENTAL ([id number]) on 12/06/2017 2:29:53 PM Referred By: PAPITO Confirmed By:MUKUL LOYD MD
[2017-12-01 06:27] LABS: Hematocrit 43.9 % (40-54); Hemoglobin 14.3 g/dl (13.0-16.5); Mean Corp Hgb Conc 32.6 g/gl (32-36); Mean Corpuscular Hgb 29.2 pg (27.0-32.0); Mean Corpuscular Volume 89.6 fL (80-94); Mean Platelet Vol. 11.8 fl (6.2-12.0); Platelet Count 149 K/mm3 (150-450); RBC Distribution Width CV 14.1 % (11.6-14.6); White Blood Count 6.8 K/mm3 (4.4-11.0)
[2017-12-01 06:29] LABS: Scan Indicated on CBC? Y/N NO
[2017-12-01 06:36] LABS: International Normalized Ratio 1.1; Prothrombin Time (Protime)PT. 13.8 SECONDS (11.7-14.9)
[2017-12-01 06:37] LABS: Partial Thromboplast Time 32.6 Seconds (24.1-36.2)
[2017-12-01 06:46] LABS: Anion Gap 8 (5-15); BUN 16 mg/dL (7-18); BUN/Creat Ratio 13.8 RATIO (10-20); Calcium,Total 8.1 mg/dL (8.5-10.1); Chloride 106 mmol/L (98-107); Cholesterol 180 mg/dL (200); Creatinine, Serum 1.16 mg/dL (0.70-1.30); EST Glomerular Filtration Rate 66 mL/min (>60); Est Glom Filt Rate - Afr Amer 80 mL/min (>60); Estimated Creatinine Clearance 57.56 ml/min; Glucose 104 mg/dL (74-106); High Density Lipoprotein 38 mg/dL; Potassium 4.2 mmol/L (3.5-5.1); Sodium Level 143 mmol/L (136-145); Triglycerides 230 mg/dL; Very Low Density Lipoprotein 46 mg/dL (5-40)
[2017-12-01 07:01] LABS: Bedside Glucose 109 mg/dL (70-110)
--- NOTE | 2017-12-01 07:41 | STEWCON_ITS ---
Reason For Study: CHEST PAIN Stress Results Protocol: Modified [place] Protocol Maximum Predicted HR: 148 bpm Target HR: 126 bpm% Maximum Pred icted HR: 70 % Heart Stage Duration Rate BPComm ent (mm:ss) (bpm) BASELINE 50 148/82 4 CC DEFINITY USED FOR TEST STAGE 0/1 3:00 90 150/80 STAGE 1/2 3:00 98 150/82 STAGE 1 0:18 10 4 / LIGH T HEADED,DIZZY, UNBALANCED I BLACKED OUT, I CAN'T REMEMBER ANYTHING LEFT ARM RECOVERY 70 170/11 0TINGLING/NUMB Stress Duration: 6:18 mm:ss Maximum Stress HR: 104 bpm Baseline Echocardiogram Findings The estimated ejection fraction is 65 %. Stress Echo Wall motion Data Resting WMIntermediate WMStress WM Resting Wall Motion Wall Motion Stress No regional wall motion Lateral-Basal: Mildly abnormalities noted. hypokinetic. Mid-Lateral : Mildly hypokinetic. EKG Data The baseline ECG demonstrates normal sinus rhythm with at rate of _ beats per minute. During dobutamine infusion, there were no ST or T wave changes noted to suggest ischemia. Interpretation Summary The study was technically difficult. Contrast injection was performed. The estimated ejection fraction is 65 %. Lateral-Basal: Mildly hypokinetic Mid-Lateral : Mildly hypokinetic Abnormal adequate treadmill echocardiogram. Positive for ischemia by echo criteria. Pt developed lightheadedness and left arm pain at peak exercise. Poor exercise capacity for age. Pt developed mild mid lateral/basal hypokinesis at peak exercise. HTN BP response to exercise. Final LVEF=55%. Ordering Physician: Elías Olmstead Referring Physician: Gustabo Pérez Performed By: Maida Gómez RDCS
[2017-12-01] MEDS: Aspirin E.C. 81 MG Tablet PO (09:16)
[2017-12-01] MEDS: Clopidogrel Bisulfate 75 MG Tablet PO (09:17)
[2017-12-01] MEDS: 0.9% Normal Saline 1,000 ML 15 ML IV (09:25)
[2017-12-01] MEDS: Metoprolol Tartrate 25 MG Tablet PO (09:27)
--- NOTE | 2017-12-01 11:47 | EKG12_ITS ---
Test Reason : AM EKG Blood Pressure : / mmHG Vent. Rate : 053 BPM Atrial Rate : 053 BPM P-R Int : 182 ms QRS Dur : 084 ms QT Int : 440 ms P-R-T Axes : 063 062 089 degrees QTc Int : 412 ms Sinus bradycardia Nonspecific T wave abnormality Abnormal ECG Confirmed by RACH PALOMO, MUKUL ([id number]), photography editor MARLENY SIMENTAL ([id number]) on 12/06/2017 3:53:43 PM Referred By: PAPITO Confirmed By:MUKUL LOYD MD
[2017-12-01 12:11] LABS: Bedside Glucose 109 mg/dL (70-110)
--- NOTE | 2017-12-01 12:31 | PN_ITS ---
<Shiva Lewis - Last Filed: 12/01/17 12:22> Patient Problems: Active and Suspected Problems (Last Reviewed 09/15/17 @ 10:19 by Indigo Gaytan) Chest pain (Acute) Subjective: Pt failed to complete Stress test this AM. He became very LH and nearly passed out, had to be helped to the bed. He is now lying in bed preparing to undergo a cath. He still has intermittent waxing and waning chest heaviness on the left side. He is not SOB. - Physical Exam General: Alert, Oriented x3, Cooperative HEENT: Atraumatic, PERRLA, EOMI, Normocephalic Neck: Supple, No JVD, Negative Carotid Bruits Lungs: Clear to auscultation, Normal air movement Cardiovascular: Regular rate, No murmurs Abdomen: Bowel Sounds Present, Soft, Non Tender Extremities: No edema, Capillary Refill Less than 3 Seconds Skin: No rashes, No breakdown Musculoskeletal: No Tenderness to Palpation of Joints or Extremities Neurological: Cranial nerves II-XII grossly intact Psych/Mental Status: Normal Affect, Appropriate, Alert and oriented to time, place, person, mood and affect Vital Signs Temp Pulse Resp BP Pulse Ox 98.3 F 49 L 17 111/71 97 12/01/17 11:46 12/01/17 11:46 12/01/17 11:46 12/01/17 11:46 12/01/17 11:46 Oxygen Flow Rate (L/min) 2 Oxygen Delivery Method Nasal Cannula Weight: 216 lb 11.43 oz Body Mass Index (BMI) 32.0 Intake and Output for Last 24 Hours 11/29/17 11/30/17 12/01/17 23:59 23:59 23:59 Intake Total 1154 / 1154 Output Total 850 / 850 Balance 304 / 304 Laboratory Tests Past 24 Hrs 11/30/17 11/30/17 12/01/17 21:06 21:06 00:20 WBC RBC Hgb Hct MCV MCH MCHC RDW RDW Differential Plt Count MPV PT INR APTT Sodium Potassium Chloride Carbon Dioxide Anion Gap BUN Creatinine Estim Creat Clear Calc Est GFR (MDRD) Af Amer Est GFR (MDRD) Non-Af BUN/Creatinine Ratio Glucose Calcium Magnesium 2.1 Troponin I < 0.015 < 0.015 Triglycerides Cholesterol LDL Cholesterol VLDL Cholesterol HDL Cholesterol 08/05/2012/01/17 12/01/17 05:50 05:50 05:50 WBC 6.8 RBC 4.90 Hgb 14.3 Hct 43.9 MCV 89.6 MCH 29.2 MCHC 32.6 RDW 14.1 RDW Differential 46.0 H Plt Count 149 L MPV 11.8 PT 13.8 INR 1.1 APTT 32.6 Sodium 143 Potassium 4.2 Chloride 106 Carbon Dioxide 29.0 Anion Gap 8 BUN 16 Creatinine 1.16 Estim Creat Clear Calc 57.56 Est GFR (MDRD) Af Amer 80 Est GFR (MDRD) Non-Af 66 BUN/Creatinine Ratio 13.8 Glucose 104 Calcium 8.1 L Magnesium Troponin I Triglycerides 230 H Cholesterol 180 LDL Cholesterol 96 VLDL Cholesterol 46 H HDL Cholesterol 38 L POC Glucose 12/01/17 12/01/17 11/30/17 11:34 06:52 21:42 POC Glucose 109 109 106 Medical Necessity - Tobacco Use Smoking Status: Former smoker Tobacco Use: Non-smoker Assessment/Plan All Active Problems (Last Reviewed 09/15/17 @ 10:19 by Indigo Gaytan) Chest pain (Acute) 1. Chest pain / heaviness - failed stress. Olmstead to cath today. Trops neg x3. 2. CAD - prior stents x6. last 08/13/2017. Pt previously prescribed asa, plavix, metroprolol, statin, imdur, lasix, and aldactone 3. HTN -stable 4. HLD - increase pravastatin at dc. 5. COPD prior smoker - aerosols prn 6. DMt2 - orals held, SSI. check a1c 7. CKDIII - improved 8. MATTHEW - cpap qhs DVT ppx: Lovenox This patient was seen by Shiva Lewis PA-C under the supervision of Doctor Wilks. <Miriam Wilks - Last Filed: 12/01/17 13:30> - Physical Exam Vital Signs Temp Pulse Resp BP Pulse Ox 98.3 F 49 L 17 111/71 97 12/01/17 11:46 12/01/17 11:46 12/01/17 11:46 12/01/17 11:46 12/01/17 11:46 Oxygen Flow Rate (L/min) 2 Oxygen Delivery Method Nasal Cannula Weight: 216 lb 11.43 oz Body Mass Index (BMI) 32.0 Intake and Output for Last 24 Hours 11/29/17 11/30/17 12/01/17 23:59 23:59 23:59 Intake Total 1154 / 1154 Output Total 850 / 850 Balance 304 / 304 Laboratory Tests Past 24 Hrs 11/30/17 11/30/17 12/01/17 21:06 21:06 00:20 WBC RBC Hgb Hct MCV MCH MCHC RDW RDW Differential Plt Count MPV PT INR APTT Sodium Potassium Chloride Carbon Dioxide Anion Gap BUN Creatinine Estim Creat Clear Calc Est GFR (MDRD) Af Amer Est GFR (MDRD) Non-Af BUN/Creatinine Ratio Glucose Hemoglobin A1c Calcium Magnesium 2.1 Troponin I < 0.015 < 0.015 Triglycerides Cholesterol LDL Cholesterol VLDL Cholesterol HDL Cholesterol 12/01/17 12/01/17 12/01/17 05:50 05:50 05:50 WBC 6.8 RBC 4.90 Hgb 14.3 Hct 43.9 MCV 89.6 MCH 29.2 MCHC 32.6 RDW 14.1 RDW Differential 46.0 H Plt Count 149 L MPV 11.8 PT 13.8 INR 1.1 APTT 32.6 Sodium 143 Potassium 4.2 Chloride 106 Carbon Dioxide 29.0 Anion Gap 8 BUN 16 Creatinine 1.16 Estim Creat Clear Calc 57.56 Est GFR (MDRD) Af Amer 80 Est GFR (MDRD) Non-Af 66 BUN/Creatinine Ratio 13.8 Glucose 104 Hemoglobin A1c Calcium 8.1 L Magnesium Troponin I Triglycerides 230 H Cholesterol 180 LDL Cholesterol 96 VLDL Cholesterol 46 H HDL Cholesterol 38 L 12/01/17 05:50 WBC RBC Hgb Hct MCV MCH MCHC RDW RDW Differential Plt Count MPV PT INR APTT Sodium Potassium Chloride Carbon Dioxide Anion Gap BUN Creatinine Estim Creat Clear Calc Est GFR (MDRD) Af Amer Est GFR (MDRD) Non-Af BUN/Creatinine Ratio Glucose Hemoglobin A1c 6.7 H Calcium Magnesium Troponin I Triglycerides Cholesterol LDL Cholesterol VLDL Cholesterol HDL Cholesterol POC Glucose 12/01/17 12/01/17 11/30/17 11:34 06:52 21:42 POC Glucose 109 109 106 Assessment/Plan Hospitalist note: I am seeing this patient in conjunction with Shiva Lewis. I independently seen and examined the patient. Progress note above, laboratory data and imaging studies reviewed and I agree with above treatment plan. Patient was admitted for chest pain for evaluation. Today, he went for stress test and he became very lightheaded and nearly passed out during the test. When I saw the patient , he denies reported intermittent chest heaviness. Denies shortness of breath, palpitation, dizziness or lightheadedness. At this time, he is bradycardic, other vital signs are stable. - Physical Exam General: Alert, Oriented x3, Cooperative, No apparent distress. HEENT: Atraumatic, PERRLA, EOMI. Neck: Supple, No JVD, Negative Carotid Bruits, Trachea Midline, Thyroid Normal. Lungs: Clear to auscultation, Normal air movement, No rhonchi, No wheeze, No rales. Cardiovascular: Regular rate, Regular Rhythm, Normal S1, Normal S2, PMI Normal. Abdomen: Bowel Sounds Present, Soft, Non Tender, Non-Distended, No Hepato- splenomegaly. Extremities: No clubbing, No cyanosis, No edema Skin: No rashes, No breakdown Neurological: Neuro grossly intact Vital Signs are stable. Assessment and plan: #1 chest pain: EKG reviewed normal sinus rhythm, flattened T waves in leads V3, V4 and V5 as well as V6, no acute skin vision. Troponin negative ?3. Chest x- ray showed no acute findings. Patient went for stress test, became lightheaded and nearly passed out during the test, this was canceled. He has history of CAD status post multiple stents. Cardiology consulted, plan for cardiac catheterization. #2 dizziness/near syncope: Could be due to CVA versus cardiac arrhythmias. Patient has been bradycardic, blood pressure stable. Plan is going for heart cath as above. #3 other medical problems: Stable, continue current medications as above. This note was generated with [employer] dictation software. It may contain incorrect words, spelling, and punctuation that were not noted in checking the note before signing. Code Visit OBSV E&M: 98242 Subsequent observation care L2
[2017-12-01] MEDS: DiphenhydrAMINE 25 MG Capsule 50 MG PO (12:56)
[2017-12-01 13:13] LABS: Hemoglobin A1c 6.7 % (4.2-6.3)
--- NOTE | 2017-12-01 14:03 | CL.D_ITS ---
Patient Name: GERRY GARCIA Study Date: 12/01/2017 Performing: Elías Olmstead MD Ht: 68.89 inches 175 cm : 1945 Wt: 216.05 lbs 98 kg Age: 72 Gender: male BSA: 2.13 PROCEDURE(S) PERFORMED [id number]/LV CLINICAL PROFILE AND INDICATIONS Indications: ACS <= 24 hrs, Suspected CAD, Stable Known CAD Heart Failure: None Stress/Imaging Stress Echocardiogram: Yes Result: Positive Low RiskStress Echocardiogram: Positiv e Low Risk Angina Classification Anginal Classification w/in 2 Weeks: CCS II CAD Presentations: Symptom unlikely to be ischemic. 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 No significant LAD disease. Normal LV size, wall motion,and systolic function RECOMMENDATIONS Change Imdur to 60mg po bid, decrease lasix to 20mg po daily. F/u with Dr Olmstead. Look for non cardiac cause of pt's symptoms. DESCRIPTION OF PROCEDURE The patient arrived to the procedure lab. The risks and benefits of the procedure as well as a full d escription of our services here and current unavailability of surgical backup were fully explained to the patient and/or their significant other prior to the catheterization. The Timeout was completed, verifying the correct patient and procedure. The patient's procedural site was prepped and draped in the usual fashion. Local anesthetic was given subcutaneously to right groin region with Lidocaine 2%. Using a modified Seldinger technique, arterial access was obtained via the right femoral artery, a 4 Fr 45 cm sheath was inserted Left Coronary Artery selective angiography was performed in multiple vi ews using a 4 Fr. JL5 catheter. Right Coronary Artery selective angiography was then performed in mul tiple views using a 4 Fr. 3DRC catheter. Left Ventriculography was performed in JOSEPH projection using a 4 Fr. Pigtail catheter. LV to AO pullback pressures were then recorded.The arterial sheath was pull ed and manual compression applied until hemostasis is achieved. CORONARY ANGIOGRAPHY DOMINANCE: Right Dominant LEFT HEART ASSESSMENT Left Ventricular Ejection Fraction: by LV Gram 65 % Inferior Mid Hypokinesis - Mild Normal Left Ventricular systolic function LEFT MAIN: No significant disease noted LEFT ANTERIOR DECENDING ARTERY: Mild luminal irregularities less than 30% RIGHT CORONARY ARTERY: MID RCA: Instent restenosis 10 % RT PDA: Proximal - No significant disease noted COMPLICATIONS No Complications PROCEDURE MEDICATIONS Oxygen: 2 L/min via nasal cannula Atropine 1mg/10ml 0.25 amp @ 12/01/2017 13:40:33 SUMMARY OF HEMODYNAMIC DATA Time AIR REST ECG 13:11:40 AO 117/70 (90) SA 13:38:23 LV 128/-20, 9 13:48:06 LV 128/-21, 9 13:48:12 LVp 116/-15, 7 13:48:17 AOp 116/54 (78) 13:48:22 Signed By Elías Olmstead MD On 12/01/2017 14:02:23 Elías Olmstead MD
[2017-12-01] MEDS: Venlafaxine XR 150 MG Capsule PO (16:14)
[2017-12-01] MEDS: Pantoprazole Sodium 40 MG Tablet PO ×2 (16:14→21:51)
[2017-12-01] MEDS: Magnesium Oxide 400 MG Tablet 800 MG PO (16:15)
[2017-12-01 16:55] LABS: Bedside Glucose 90 mg/dL (70-110)
[2017-12-01] MEDS: Metoprolol Tartrate 25 MG Tablet 12.5 MG PO (21:51)
[2017-12-01] MEDS: Pravastatin 20 MG Tablet PO (21:51)
[2017-12-01 21:55] LABS: Bedside Glucose 103 mg/dL (70-110)
[2017-12-02] VITALS (10 sets, daily range): BP systolic 109–163; BP diastolic 68–99; PULSE 53–74; RESP 14–18; TEMP 36.3–36.6; O2SAT 91–96
[2017-12-02] MEDS: 0.9% Normal Saline 1,000 ML 100 ML IV (05:46)
[2017-12-02 06:41] LABS: Anion Gap 6 (5-15); BUN 18 mg/dL (7-18); BUN/Creat Ratio 14.1 RATIO (10-20); Calcium,Total 8.2 mg/dL (8.5-10.1); Chloride 109 mmol/L (98-107); Creatinine, Serum 1.28 mg/dL (0.70-1.30); EST Glomerular Filtration Rate 59 mL/min (>60); Est Glom Filt Rate - Afr Amer 71 mL/min (>60); Estimated Creatinine Clearance 52.17 ml/min; Glucose 123 mg/dL (74-106); Potassium 4.5 mmol/L (3.5-5.1); Sodium Level 141 mmol/L (136-145)
[2017-12-02 06:55] LABS: Bedside Glucose 121 mg/dL (70-110)
[2017-12-02] MEDS: Aspirin E.C. 81 MG Tablet PO (08:37)
--- NOTE | 2017-12-02 09:50 | CASEMGMT ---
This RN DANIELLE to room with SOLER form, explanation done and pt voices understanding. Pt voices no further questions/concerns at this time. Original to chart and pt declines a copy. Lawanda JOHNSON CM
[2017-12-02] MEDS: Isosorbide Mononitrate 60 MG Tablet PO (10:14)
[2017-12-02] MEDS: Magnesium Oxide 400 MG Tablet 800 MG PO (10:15)
[2017-12-02] MEDS: Clopidogrel Bisulfate 75 MG Tablet PO (10:15)
[2017-12-02] MEDS: Pantoprazole Sodium 40 MG Tablet PO (10:15)
[2017-12-02] MEDS: Metoprolol Tartrate 25 MG Tablet 12.5 MG PO (10:16)
[2017-12-02] MEDS: Furosemide 20 MG Tablet PO (10:16)
[2017-12-02] MEDS: Venlafaxine XR 150 MG Capsule PO (10:17)
--- NOTE | 2017-12-02 10:54 | PCM.DC ---
- Discharge Diagnoses Current Active Problems: Current Active and Chronic Problems (Last Reviewed 09/15/17 @ 10:19 by Indigo Gaytan) Chest pain (Acute) COPD (chronic obstructive pulmonary disease) (Chronic) 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.9) (Chronic) MATTHEW (obstructive sleep apnea) (Chronic) CKD (chronic kidney disease) stage 3, GFR 30-59 ml/min (Chronic) You will use the following diet at home:: Calorie/Carbohydrate Controlled (specify 1200, 1400, etc) - 1800, Cardiac Your food should be the consistency of: Regular Discharge Activity: Return to Normal Activity Instructions: ED Chest Pain NonCardiac Allergies/Adverse Reactions: Allergies No Known Allergies Allergy (Verified 09/15/17 10:19) Medications to take at Discharge Aspirin E.C. [Ecotrin] 81 mg PO DAILY@0800 01/21/17 Cholecalciferol (Vitamin D3) [Vitamin D3] 4,000 unit PO DAILY 01/21/17 Clopidogrel Bisulfate [Clopidogrel] 75 mg PO DAILY 01/21/17 Cyanocobalamin (Vitamin B-12) [Vitamin B-12] 1,000 mcg PO DAILY 01/21/17 Magnesium Oxide [Magnesium] 800 mg PO DAILY 01/21/17 Nitroglycerin [Nitrostat] 0.3 mg SL UD PRN 01/21/17 Pantoprazole Sodium [Protonix] 40 mg PO BID 01/21/17 Spironolactone [Aldactone] 50 mg PO DAILY 01/21/17 potassium chloride ER 20 mEq tablet,extended release 60 meq PO BID tab 08/30/17 albuterol sulfate HFA 90 mcg/actuation aerosol inhaler 2 puff INHALATION Q6H PRN #1 device 09/15/17 umeclidinium 62.5 mcg-vilanterol 25 mcg/actuation powdr for inhalation 1 inh INHALATION Q24H #1 device 09/15/17 Glimepiride [Amaryl] 1 mg PO DAILY 11/30/17 Metoprolol Tartrate 50 mg PO BID 11/30/17 Pravastatin Sodium [Pravachol] 20 mg PO QHS 11/30/17 Venlafaxine XR [Effexor Xr] 150 mg PO DAILY 11/30/17 Furosemide [Lasix] 20 mg PO DAILY tablet 12/02/17 Isosorbide Mononitrate [Imdur] 60 mg PO BID tablet 12/02/17 Primary Care Physician: Victor M Luke DO [Primary Care Provider] - Please follow up with your Primary Care Physician in: in 5-7 days Test Results: Test results from this visit will be discussed in further detail at your follow-up appointment, if applicable. Please Follow Up With: Elías Olmstead MD When: in 2-4 weeks Proposed Discharge Date: 12/02/17
--- NOTE | 2017-12-02 10:56 | PCM.DC.SUM ---
Discharge Date and Diagnosis Date of Admission: 11/30/17 Date of Discharge: 12/02/17 - Primary Discharge Diagnosis Active and Suspected Problems (Last Reviewed 09/15/17 @ 10:19 by Indigo Gaytan) Chest pain (Acute) - Secondary Discharge Diagnosis Chronic Problems (Last Reviewed 09/15/17 @ 10:19 by Indigo Gaytan) COPD (chronic obstructive pulmonary disease) (Chronic) 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.9) (Chronic) MATTHEW (obstructive sleep apnea) (Chronic) CKD (chronic kidney disease) stage 3, GFR 30-59 ml/min (Chronic) Atherosclerotic heart disease [place] coronary artery w/angina pectoris (Chronic) [id number] 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 PCI-POBA-Cx and Stent-Mid RCA x 2 Multi Link Mini Vision Rx Stent 4.0 x 28 mm 01/21/2006 Type 2 diabetes mellitus without complications (Chronic) Hypertension (Chronic) Hyperlipidemia (Chronic) Old myocardial infarction (Chronic) Obesity (Chronic) History of coronary artery stent placement (Chronic 08/13/17) [id number] 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 Patient was placed in a monitored bed VT was ruled out with serial cardiac enzymes cardiology subsequently consulted patient was seen by Dr. Olmstead who recommended for patient undergo heart catheterization which was performed by him on 12/02/17. Findings included patent left circumflex as well as RCA stent. Dr. Olmstead subsequently recommended adjustment of patient medication regimen which was done prior to his discharge. Discharge Activity: Return to Normal Activity Home Medications: Medications to take at Discharge Aspirin E.C. [Ecotrin] 81 mg PO DAILY@0800 01/21/17 Cholecalciferol (Vitamin D3) [Vitamin D3] 4,000 unit PO DAILY 01/21/17 Clopidogrel Bisulfate [Clopidogrel] 75 mg PO DAILY 01/21/17 Cyanocobalamin (Vitamin B-12) [Vitamin B-12] 1,000 mcg PO DAILY 01/21/17 Magnesium Oxide [Magnesium] 800 mg PO DAILY 01/21/17 Nitroglycerin [Nitrostat] 0.3 mg SL UD PRN 01/21/17 Pantoprazole Sodium [Protonix] 40 mg PO BID 01/21/17 Spironolactone [Aldactone] 50 mg PO DAILY 01/21/17 potassium chloride ER 20 mEq tablet,extended release 60 meq PO BID tab 08/30/17 albuterol sulfate HFA 90 mcg/actuation aerosol inhaler 2 puff INHALATION Q6H PRN #1 device 09/15/17 umeclidinium 62.5 mcg-vilanterol 25 mcg/actuation powdr for inhalation 1 inh INHALATION Q24H #1 device 09/15/17 Glimepiride [Amaryl] 1 mg PO DAILY 11/30/17 Pravastatin Sodium [Pravachol] 20 mg PO QHS 11/30/17 Venlafaxine XR [Effexor Xr] 150 mg PO DAILY 11/30/17 Furosemide [Lasix] 20 mg PO DAILY tablet 12/02/17 Isosorbide Mononitrate [Imdur] 60 mg PO BID tablet 12/02/17 Metoprolol Tartrate [Lopressor (beta jeffrey)] 12.5 mg PO BID #60 tab 12/02/17 Following Prescrptions Were Given to Patient: Metoprolol Tartrate [Lopressor (beta jeffrey)] 12.5 mg PO BID #60 tab Primary Care Physician: Victor M Luke DO [Primary Care Provider] - Please follow up with your Primary Care Physician in: in 5-7 days Please Follow Up With: Elías Olmstead MD When: in 2-4 weeks Patient Instructions: ED Chest Pain NonCardiac Minutes spent on discharge:: 35 Patient Condition:: Stable Medical Necessity - Tobacco Use Smoking Status: Former smoker Tobacco Use: Non-smoker Meaningful Use Info Meaningful Use Diagnoses (Choose all that apply): None applicable Code Visit OBSV E&M: 18185 Observation care discharge
[2017-12-02 11:31] LABS: Bedside Glucose 164 mg/dL (70-110)
== END 2017-12-02 10:55 | disposition home or self-care (01) ==
LOC: ED 18:28 → PCU 19:37
PROVIDERS: Hospitalist; Physician Assistant; Admitting Provider Family Medicine; Emergency Provider Emergency Medicine; Family Provider Family Medicine; PCP Family Medicine; Visit Provider Internal Medicine
DX: R07.89 Other chest pain (principal); R06.02 Shortness of breath; R11.0 Nausea; J44.9 Chronic obstructive pulmonary disease, unspecified; I12.9 Hypertensive chronic kidney disease with stage 1 through stage 4 chronic kidney disease, or unspecified chronic kidney disease; E11.22 Type 2 diabetes mellitus with diabetic chronic kidney disease; N18.3 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, stage 3 (moderate); Z95.5 Presence of coronary angioplasty implant and graft; Z79.899 Other long term (current) drug therapy; Z79.02 Long term (current) use of antithrombotics/antiplatelets; Z79.82 Long term (current) use of aspirin; Z87.891 Personal history of nicotine dependence; G47.33 Obstructive sleep apnea (adult) (pediatric); I25.10 Atherosclerotic heart disease of native coronary artery without angina pectoris; E78.5 Hyperlipidemia, unspecified; F32.9 Major depressive disorder, single episode, unspecified; F41.9 Anxiety disorder, unspecified; I25.2 Old myocardial infarction; E11.51 Type 2 diabetes mellitus with diabetic peripheral angiopathy without gangrene; R42 Dizziness and giddiness
CPT/HCPCS: 36415; 71045; 80048; 80061; 82962; 83036; 83735; 84484; 85025; 85027; 85610; 85730; 93005; 93017; 93350; 93458; 96361; 96374; 96375; 96376; 97802; 99218; 99283; J7030; Q9957; Q9967; A4216; C1769; C1894; C8928; G0378

== ENCOUNTER → 2017-12-22 11:20 | Outpatient (CLI) | payer MEDICARE, OTHER, SELFPAY ==
[2017-08-13 14:08] VITALS: BMI 32.5
[2017-12-22 14:33] LABS: Anion Gap 11 (5-15); BUN 18 mg/dL (7-18); Calcium,Total 9.1 mg/dL (8.5-10.1); Chloride 106 mmol/L (98-107); Creatinine, Serum 1.29 mg/dL (0.70-1.30); EST Glomerular Filtration Rate 58 mL/min (>60); Est Glom Filt Rate - Afr Amer 70 mL/min (>60); Glucose 124 mg/dL (74-106); Potassium 4.6 mmol/L (3.5-5.1); Sodium Level 140 mmol/L (136-145)
[2017-12-22 14:42] LABS: Hemoglobin A1c 6.2 % (4.2-6.3)
== END ==
PROVIDERS: Visit Provider Family Medicine
DX: I10 Essential (primary) hypertension (principal)
CPT/HCPCS: 36415; 80048; 83036

== ENCOUNTER → 2018-01-31 16:09 | Outpatient (CLI) | payer MEDICARE, OTHER, SELFPAY ==
[2017-08-13 14:08] VITALS: BMI 32.5
--- NOTE | 2018-01-31 16:12 | RAD_ITS ---
STUDY: X-RAY - ACUTE ABDOMINAL SERIES REASON FOR EXAM: Male, 72 years old. Chest pain. Distention. TECHNIQUE: Single view of the chest. Supine, upright view(s) of the abdomen were obtained. COMPARISON: Chest x-ray dated 11/30/2017. FINDINGS: The lungs are clear. There are no pleural effusions. There is no pneumothorax. The heart is normal in size. There is no bowel obstruction. There is air and stool to the level of the rectum. There is no free air. There are surgical clips in the right upper quadrant, consistent with prior cholecystectomy. There are degenerative changes noted in the spine. RAD/Acute Abdomen Inc Chest IMPRESSION: Clear lungs. No bowel obstruction. Electronically Signed: Joseph Kaur, at 16:42 EDT Tel , Service support ,
== END ==
PROVIDERS: Family Provider Family Medicine; PCP Family Medicine; Referring Provider Family Medicine; Visit Provider Family Medicine
DX: R14.0 Abdominal distension (gaseous) (principal)
CPT/HCPCS: 74022

== ENCOUNTER → 2018-03-14 07:12 | Outpatient (CLI) | payer MEDICARE, OTHER, SELFPAY ==
[2017-08-13 14:08] VITALS: BMI 32.5
--- NOTE | 2018-03-14 07:16 | CT_ITS ---
STUDY: CT ABDOMEN AND PELVIS WITH CONTRAST REASON FOR EXAM: Male, 72 years old. 2-3 month history of abdominal pain and abdominal bloating. Prior umbilical hernia repair. RADIATION DOSAGE (If Supplied By Facility): CTDIvol = ( 19.4 ) mGy, DLP = ( 1778.35 ) mGycm TECHNIQUE: Transaxial images were obtained from the dome of the diaphragm to the symphysis pubis with oral contrast. 100 ml of Isovue 300 contrast was administered. Sagittal and coronal images were reconstructed. Individualized dose optimization techniques were used for this CT. COMPARISON: Comparison is made with prior study dated September 03, 2017. FINDINGS: The visualized lung bases are unremarkable. A bipolar pacemaker is seen. There is decreased attenuation of the liver consistent with steatosis. There are surgical clips in the gallbladder fossa consistent with a prior cholecystectomy. Normal spleen. Normal pancreas. There is a small, circumscribed, smooth, low attenuation left adrenal mass, consistent with an adrenal adenoma. This measures 1.6 cm. Normal right adrenal gland. Normal right kidney. There is a 3 cm x 4.4 cm left parapelvic cyst. This is unchanged. A 1 cm cyst is also seen in the posterior aspect of the lower pole of the left kidney. Normal visualized stomach. Normal small intestine. There are multiple colonic diverticula consistent with diverticulosis. The appendix is visualized and appears normal. There is scattered atherosclerotic calcification of the abdominal aorta, without a demonstrated aneurysm. Normal inferior vena cava. Normal retroperitoneum. Normal urinary bladder. The patient is status post prostatectomy. The patient is status post ventral hernia repair. There is a stable 2.4 cm x 4.3 cm elliptical shaped fluid density deep to the anterior abdominal wall in the midline. This most likely represents a postoperative seroma. This is unchanged. There are degenerative changes of the visualized lumbar spine and both sacroiliac joints. Stable small foci of bony sclerosis in the left sacrum and right iliac bone.. CT/Abdomen/Pelvis WITH Contrast IMPRESSION: Fatty infiltration of the liver. Stable left parapelvic cyst. Stable 2.4 cm x 4.3 cm elliptical shaped fluid collection deep to the anterior abdominal wall musculature. Electronically Signed: Constantin Lee MD at 12:57 EST Tel [phone], Service support ,
[2018-03-14 07:35] LABS: EGFR FINGERSTICK > 60.0000 mL/min (>60)
== END ==
PROVIDERS: Family Provider Family Medicine; PCP Family Medicine; Referring Provider Family Medicine; Visit Provider Family Medicine
DX: R10.9 Unspecified abdominal pain (principal); R14.0 Abdominal distension (gaseous); R93.5 Abnormal findings on diagnostic imaging of other abdominal regions, including retroperitoneum
CPT/HCPCS: 74177; Q9967

== ENCOUNTER 2018-04-12 13:15 | Observation (INO) | payer MEDICARE, OTHER, SELFPAY ==
[2017-08-13 14:08] VITALS: BMI 32.5
[2018-04-12] VITALS (17 sets, daily range): BP systolic 113–190; BP diastolic 58–96; PULSE 55–74; RESP 13–18; TEMP 36.8–37.1; O2SAT 94–98; BMI 33.0; BMI 32.5
--- NOTE | 2018-04-12 13:32 | RAD_ITS ---
STUDY: X-RAY CHEST REASON FOR EXAM: Male, 72 years old. Chest pain. Near syncopal episode. TECHNIQUE: Single AP portable view of the chest. COMPARISON: Comparison is made with prior study dated November 30, 2017. FINDINGS: EKG electrodes are seen. Stable increased markings in the left lung base suggestive of scarring. Stable mild elevation of the right hemidiaphragm. There is no demonstrated pleural abnormality. There is borderline cardiomegaly. Normal mediastinum and melanie. Normal visualized pulmonary arteries. There is atherosclerotic tortuosity of the aortic arch and descending thoracic aorta. There are diffuse degenerative changes of the visualized thoracic spine. Findings suggestive prior left rotator cuff surgery. Prior fusion in the lower cervical spine. There is no demonstrated abnormality of the visualized soft tissue structures of the upper abdomen. RAD/Chest 1 View IMPRESSION: Stable examination. Findings suggest mild scarring at the left lung base. Electronically Signed: Constantin Lee MD at 14:19 EST Tel [phone], Service support ,
--- NOTE | 2018-04-12 13:32 | CT_ITS ---
STUDY: CT BRAIN WITHOUT CONTRAST REASON FOR EXAM: Male, 72 years old. Headache. Near syncope. RADIATION DOSAGE (If Supplied By Facility): CTDIvol = ( 60.81 ) mGy, DLP = ( 1067.08 ) mGycm TECHNIQUE: Transaxial CT imaging of the brain was performed without administration of intravenous contrast material. Individualized dose optimization techniques were used for this CT. COMPARISON: None. FINDINGS: Normal soft tissue structures. Normal calvarium. There is mild cerebral atrophy with widening of the extra-axial spaces and ventricular dilatation. Normal white matter tracts of the cerebral hemispheres. Normal basal ganglia and thalami. Normal brainstem. Normal cerebellum. There is no intracranial hemorrhage. There are no findings of an acute ischemic infarction. Atherosclerotic calcification of the cavernous portions of the internal carotid arteries bilaterally Mild mucosal thickening of the inferior aspect of the right maxillary sinus. CT/Brain/Head without Contrast IMPRESSION: Chronic involutional changes of the brain. Electronically Signed: Constantin Lee MD at 15:07 EST Tel [phone], Service support ,
--- NOTE | 2018-04-12 13:32 | EKG12_ITS ---
Test Reason : CP Blood Pressure : / mmHG Vent. Rate : 051 BPM Atrial Rate : 051 BPM P-R Int : 164 ms QRS Dur : 086 ms QT Int : 440 ms P-R-T Axes : 060 063 058 degrees QTc Int : 405 ms Sinus bradycardia Otherwise normal ECG Confirmed by NAOMIE PALOMO, PARVEZ ([id number]), business editor MARLENY SIMENTAL ([id number]) on 04/15/2018 10:15:24 AM Referred By: YOUSIF/LÓPEZ Confirmed By:PARVEZ AKBAR MD
--- NOTE | 2018-04-12 13:51 | ED.DCSUM_ITS ---
- ER Visit Summary Date of Service: 04/12/18 Chief Complaint: Chest pain History of Present Illness: The patient is a 72 M who presents with chest pain. The pain started after he woke up from sedation after colonoscopy. This was done at the surgical center. He was having the colonoscopy for abdominal blo ating symptoms. His pain is over his left and right anterior chest. It does not radiate. He has had similar symptoms in the past and has a history of coronary disease with 6 stents. He had a catheterization in December of this year that he tells me was unremarkable. He did not receive stents then. He has been taking aspirin but has been holding his Plavix for his scope. EMS gave him aspirin. He had a brief syncopal episode in the ambulance and did not receive nitroglycerin. His pain is currently 2 out of 10. While he was being registered in the ER he started to complain of a headache and left face numbness. He has a history of TIA but no deficits. Also reports a history of diabetes, hypertension, hyperlipidemia, and COPD. He is a former smoker. No other blood thinners. Physical Examination: Blood pressure 190/96. Heart rate 57. Otherwise vitals unremarkable. Afebrile. He is alert and oriented. GCS 15. He had an NIH stroke scale of 1.4 decreased sensation to his left face. Heart regular rate and rhythm. Lungs clear. Abdomen soft and nontender. Skin appears unremarkable. Test Results: EKG shows sinus rhythm at a rate of 51. No sign of acute ischemia or infarction pattern. Laboratory studies, chest x-ray, and CT brain pending. Emergency Department Course and Treatment: Patient seen on arrival. His pain is 2 out of 10. He already was treated with aspirin. Because his pain had subsided he did not receive additional pain medicine at this point. He was placed on a monitor. Will workup for chest pain and focal numbness. His repeat blood pressure is already 173 systolic while I am in the room. We will continue to monitor as he may need blood pressure control. Chest x-ray was stable. CT brain showed chronic changes. Platelets 131, chloride 111. Troponin normal. Calcium 8.4. Repeat blood pressure in the 140s. Patient was discussed with Dr. Winn. He said that the scope was uneventful. Given the patient's history and symptoms, I spoke with the hospitalist to admit for further observation. Treatment Plan: As above Disposition: Admission Impression: 1. Chest pain 2. Left face numbness This note was generated with [employer] dictation software. It may contain incorrect words, spelling, and punctuation that were not noted in review of the chart prior to signing ED Disposition - Plan for ED Patient: Chief Complaint: Chest Pain Referrals: Victor M Luke DO [Primary Care Provider] -
[2018-04-12 14:03] LABS: Absolute Lymphocyte Count 1.11 X10^3/ul (0.83-4.51); Absolute Neutrophil Count 3.1 X10^3/uL (2.0-7.7); Basophil# 0.01 X10^3/uL; Basophil% 0.2 % (0-1); Eosinophil# 0.02 X10^3/uL; Eosinophils% 0.4 % (0-5); Hematocrit 43.4 % (40-54); Hemoglobin 14.1 g/dl (13.0-16.5); Lymphocyte # 1.11 X10^3/ul (4.0); Lymphocyte % 22.9 % (19-41); Mean Corp Hgb Conc 32.5 g/gl (32-36); Mean Corpuscular Hgb 29.1 pg (27.0-32.0); Mean Corpuscular Volume 89.7 fL (80-94); Mean Platelet Vol. 12.2 fl (6.2-12.0); Monocyte# 0.61 X10^3/uL; Monocyte% 12.6 % (0-10); Neutrophil # 3.08 X10^3/uL (2.7-7.7); Neutrophil % 63.5 % (47-70); Platelet Count 131 K/mm3 (150-450); RBC Distribution Width CV 14.4 % (11.6-14.6); RBC Distribution Width SD 46.9 fl (35.1-43.9); Red Blood Count 4.84 M/mm3 (4.6-6.2); White Blood Count 4.9 K/mm3 (4.4-11.0)
[2018-04-12 14:04] LABS: POSITIVE COUNT NO; POSITIVE DIFFERENTIAL NO; POSITIVE MORPHOLOGY NO
[2018-04-12 14:08] LABS: International Normalized Ratio 1.1; Prothrombin Time (Protime)PT. 14.1 SECONDS (11.7-14.9)
[2018-04-12 14:09] LABS: Partial Thromboplast Time 31.3 Seconds (24.1-36.2)
[2018-04-12 14:18] LABS: Anion Gap 6 (5-15); BUN 15 mg/dL (7-18); BUN/Creat Ratio 11.9 RATIO (10-20); Calcium,Total 8.4 mg/dL (8.5-10.1); Chloride 111 mmol/L (98-107); Creatinine, Serum 1.26 mg/dL (0.70-1.30); EST Glomerular Filtration Rate 60 mL/min (>60); Est Glom Filt Rate - Afr Amer 72 mL/min (>60); Estimated Creatinine Clearance 52.99 ml/min; Glucose 103 mg/dL (74-106); Potassium 4.4 mmol/L (3.5-5.1); Sodium Level 143 mmol/L (136-145)
--- NOTE | 2018-04-12 15:24 | NURSING ---
116 OBS CP, LEFT FACE NUMBNESS SEMENTI
--- NOTE | 2018-04-12 15:29 | PCM.HP.STD ---
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 PCI-POBA-Cx and Stent-Mid RCA x 2 Multi Link Mini Vision Rx Stent 4.0 x 28 mm 01/21/2006 (7) Type 2 diabetes mellitus without complications Status: Chronic Qualifiers: (8) Hypertension Status: Chronic Qualifiers: (9) Hyperlipidemia Status: Chronic Qualifiers: (10) Old myocardial infarction Status: Chronic (11) Obesity Status: Chronic (12) History of coronary artery stent placement Status: Chronic Comment: [id number]-Tjft 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 The patient is a 72 year old M who presents emergency room due to chest pain and left facial numbness which occurred following colonoscopy today with Dr. Winn. Patient reports after he came to following colonoscopy he developed right-sided chest pain. He states he has had chest pain in the past which was typically on the left side of his chest and this felt different from prior episodes. He denies shortness of breath, diaphoresis or other associated symptoms during episode of chest pain. He then reports the squad arrived to transport him to the emergency room and he developed a brief episode of blacking out in the squad. He also describes left facial numbness and tingling which has since resolved. He denies slurred speech, vision changes or other neurologic symptoms. Patient does report he has had episodes of chest pain off and on in the past and also a history of TIA with similar symptoms that he described today. He has a past medical history of CAD status post PCI x6, hypertension, hyperlipidemia, type 2 diabetes mellitus, anxiety, depression, COPD, obstructive sleep apnea, chronic kidney disease stage III, tobacco use. 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 PCI-POBA-Cx and Stent-Mid RCA x 2 Multi Link Mini Vision Rx Stent 4.0 x 28 mm 01/21/2006 Type 2 diabetes mellitus without complications (Chronic) Hypertension (Chronic) Hyperlipidemia (Chronic) Old myocardial infarction (Chronic) Obesity (Chronic) History of coronary artery stent placement (Chronic 08/13/17) [id number] 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 PCI-POBA-Cx and Stent-Mid RCA x 2 Multi Link Mini Vision Rx Stent 4.0 x 28 mm 01/21/2006 Medical History: Medical History (Last Reviewed 01/21/18 @ 10:49 by Maria R Bautista) Atherosclerotic heart disease [place] coronary artery w/angina pectoris (Chronic) I25.119 [id number]-EXF-Mlsa 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 [Ecotrin] 81 mg PO DAILY@0800 01/21/17 Cyanocobalamin (Vitamin B-12) 1,000 mcg PO DAILY 01/21/17 [Vitamin B-12] Magnesium Oxide [Magnesium] 800 mg PO DAILY 01/21/17 Pantoprazole Sodium [Protonix] 40 mg PO BID 01/21/17 Spironolactone [Aldactone] 50 mg PO DAILY 01/21/17 Glimepiride [Amaryl] 4 mg PO DAILY 11/30/17 Pravastatin Sodium [Pravachol] 20 mg PO QHS 11/30/17 Venlafaxine XR [Effexor Xr] 150 mg PO DAILY 11/30/17 Furosemide [Lasix] 20 mg PO DAILY tab 12/02/17 Metoprolol Tartrate [Lopressor 12.5 mg PO BID #60 tab 12/02/17 (beta jeffrey)] cholecalciferol (vitamin D3) 4,000 4,000 unit PO DAILY 01/19/18 unit tablet nitroglycerin 0.4 mg sublingual 0.4 mg SUBLINGUAL Q5-15M PRN 01/19/18 tablet potassium chloride ER 20 mEq 20 meq PO BID tab 01/19/18 tablet,extended release Cetirizine HCl [All Day Allergy] 10 mg PO DAILY 04/12/18 Clopidogrel Bisulfate [Plavix] 75 mg PO DAILY 04/12/18 Isosorbide Mononitrate [Imdur] 60 mg PO DAILY 04/12/18 Lubiprostone [Amitiza] 8 mcg PO BID 04/12/18 Surgical History: Surgical History (Last Reviewed 04/12/18 @ 15:39 by YRN Chew) History of coronary artery stent placement (Chronic) Onset Date: 08/13/17 Z95.5 [id number] 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 Psychiatric History: Anxiety, Depression Lives: Spouse/ Significant Other Smoking Status: Former smoker Alcohol: None Drugs: None - *Family History Maternal History Items: - - Denies maternal cardiac history Paternal History Items: - - Father with a history of Parkinson's disease. Review of Systems Constitutional: Denies: Chills, Fever, Weight Change HEENT: Denies: Head Aches, Sinus Congestion, Sinus Drainage Cardiovascular: Reports: Chest Pain, Syncope. Denies: Edema, Palpitations Respiratory: Denies: Cough, Shortness of breath at rest, Sputum production Gastrointestinal: Denies: Abdominal Pain, Nausea, Vomiting Genitourinary: Denies: Dysuria Musculoskeletal: Denies: Joint Pain, Joint Tenderness Skin: Denies: Rash, Wounds Neurological: Reports: - - Left facial numbness/tingling.. Denies: Balance problems, Blurred vision, Double vision, Slurred speech, Confusion, Focal weakness, Seizures Psychiatric: Reports: Anxiety, Depression. Denies: Homicidal Ideations, Suicidal Ideations Hematologic/ Lymphatic: Denies: Easy Bruising, Easy Bleeding VTE Information - Inpt Only VTE Present on Admission: No VTE Mechan Device Prophylaxis: None VTE Pharm Prophylaxis ordered?: Yes - Physical Exam General: Alert, Oriented x3, Cooperative HEENT: Atraumatic, PERRLA, EOMI, Normocephalic Neck: Supple, No JVD, Negative Carotid Bruits Lungs: Clear to auscultation, Diminished Cardiovascular: Regular rate, Regular Rhythm, Normal S1, Normal S2, No murmurs Abdomen: Bowel Sounds Present, Soft, Non Tender, Non-Distended, Obese Extremities: No clubbing, No cyanosis, No edema, Capillary Refill Less than 3 Seconds Skin: No rashes, No breakdown Musculoskeletal: No Tenderness to Palpation of Joints or Extremities Neurological: Cranial nerves II-XII grossly intact, Neuro grossly intact Psych/Mental Status: Normal Affect, Appropriate Vital Signs Temp Pulse Resp BP Pulse Ox 98.3 F 66 18 130/64 H 97 04/12/18 13:19 04/12/18 15:19 04/12/18 15:19 04/12/18 15:19 04/12/18 15:19 Oxygen Flow Rate (L/min) 2 Oxygen Delivery Method Nasal Cannula Weight: 223 lb 12.307 oz Body Mass Index (BMI) 33.0 Finger Stick Blood Glucose 103 Laboratory Tests Past 24 Hrs 04/12/18 04/12/18 04/12/18 13:50 13:50 13:50 WBC 4.9 RBC 4.84 Hgb 14.1 Hct 43.4 MCV 89.7 MCH 29.1 MCHC 32.5 RDW 14.4 RDW Differential 46.9 H Plt Count 131 L MPV 12.2 H Immature Gran % (Auto) 0.400 Neut % (Auto) 63.5 Lymph % (Auto) 22.9 [place] % (Auto) 12.6 H Eos % (Auto) 0.4 Baso % (Auto) 0.2 Absolute Neuts (auto) 3.1 Absolute Lymphs (auto) 1.11 Total Counted Not Reportable PT 14.1 INR 1.1 APTT 31.3 Sodium 143 Potassium 4.4 Chloride 111 H Carbon Dioxide 26.0 Anion Gap 6 BUN 15 Creatinine 1.26 Estim Creat Clear Calc 52.99 Est GFR (MDRD) Af Amer 72 Est GFR (MDRD) Non-Af 60 BUN/Creatinine Ratio 11.9 Glucose 103 Calcium 8.4 L Troponin I < 0.015 Assessment/Plan All Active Problems (Last Reviewed 01/21/18 @ 10:49 by Maria R Bautista) Chest pain (Acute) 1. Chest pain/Syncope- Occurred following colonoscopy today. Patient reports chronic intermittent chest pain. Suspect syncope secondary to anesthesia. EKG sinus rhythm without ST-T changes. Troponin negative x1. Trend enzymes. Patient had echo August 2017 which showed an EF of 65%, stage I diastolic dysfunction, RVSP estimated to be 30 mmHg. Repeat EKG in a.m. Obtain orthostatic vitals. Patient had recent cath December 2017 with nonobstructive coronary arteries. Chest x-ray without acute process. 2. Left facial numbness-history of TIA. Facial numbness resolved. CT of brain without acute infarct. Complete NIH Q4. Continue aspirin, statin, Plavix. 3. CAD status post PCI x6-follows with Dr. Olmstead. Cardiac catheterization December 2017 with widely patent LCx and RCA stents. No significant LAD disease. Continue aspirin, statin, Plavix, Imdur, metoprolol. 4. Hypertension-stable, continue home isosorbide, metoprolol, spironolactone, Lasix regimen. 5. Hyperlipidemia-continue statin. 6. Chronic COPD-no acute exacerbation. PRN albuterol aerosol. 7. Type 2 diabetes mellitus-hold home oral regimen. Accu-Cheks before meals at bedtime with sliding scale insulin. 8. 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 stage III-at baseline, trend BMP. 9. MATTHEW-continue CPAP nightly. 10. Forward tobacco use-encouraged continued cessation. 11. Depression/anxiety-continue home Effexor regimen. 12. GERD-continue PPI. 13. Obesity-encouraged diet and lifestyle modifications. DVT prophylaxis-lovenox [place] This patient was seen by YRN Chew under the supervision of Dr. Lomas.
--- NOTE | 2018-04-12 15:39 | HP.PCM_ITS ---
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 PCI-POBA-Cx and Stent-Mid RCA x 2 Multi Link Mini Vision Rx Stent 4.0 x 28 mm 01/21/2006 (7) Type 2 diabetes mellitus without complications Status: Chronic Qualifiers: (8) Hypertension Status: Chronic Qualifiers: (9) Hyperlipidemia Status: Chronic Qualifiers: (10) Old myocardial infarction Status: Chronic (11) Obesity Status: Chronic (12) History of coronary artery stent placement Status: Chronic Comment: [id number] 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 The patient is a 72 year old M who presents emergency room due to chest pain and left facial numbness which occurred following colonoscopy today with Dr. Winn. Patient reports after he came to following colonoscopy he developed right- sided chest pain. He states he has had chest pain in the past which was typic ally on the left side of his chest and this felt different from prior episodes. He denies shortness of breath, diaphoresis or other associated symptoms during episode of chest pain. He then reports the squad arrived to transport him to the emergency room and he developed a brief episode of blacking out in the squad. He also describes left facial numbness and tingling which has since resolved. He denies slurred speech, vision changes or other neurologic symptoms. Patient does report he has had episodes of chest pain off and on in the past and also a history of TIA with similar symptoms that he described today. He has a past medical history of CAD status post PCI x6, hypertension, hyperlipidemia, type 2 diabetes mellitus, anxiety, depression, COPD, obstructive sleep apnea, chronic kidney disease stage III, tobacco use. 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 PCI-POBA-Cx and Stent-Mid RCA x 2 Multi Link Mini Vision Rx Stent 4.0 x 28 mm 01/21/2006 Type 2 diabetes mellitus without complications (Chronic) Hypertension (Chronic) Hyperlipidemia (Chronic) Old myocardial infarction (Chronic) Obesity (Chronic) History of coronary artery stent placement (Chronic 08/13/17) [id number] 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 PCI-POBA-Cx and Stent-Mid RCA x 2 Multi Link Mini Vision Rx Stent 4.0 x 28 mm 01/21/2006 Medical History: Medical History (Last Reviewed 01/21/18 @ 10:49 by Maria R Bautista) Atherosclerotic heart disease [place] coronary artery w/angina pectoris (Chronic) I25.119 [id number]-Izik 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 [Ecotrin] 81 mg PO DAILY@0800 01/21/17 Cyanocobalamin (Vitamin B-12) 1,000 mcg PO DAILY 01/21/17 [Vitamin B-12] Magnesium Oxide [Magnesium] 800 mg PO DAILY 01/21/17 Pantoprazole Sodium [Protonix] 40 mg PO BID 01/21/17 Spironolactone [Aldactone] 50 mg PO DAILY 01/21/17 Glimepiride [Amaryl] 4 mg PO DAILY 11/30/17 Pravastatin Sodium [Pravachol] 20 mg PO QHS 11/30/17 Venlafaxine XR [Effexor Xr] 150 mg PO DAILY 11/30/17 Furosemide [Lasix] 20 mg PO DAILY tab 12/02/17 Metoprolol Tartrate [Lopressor 12.5 mg PO BID #60 tab 12/02/17 (beta jeffrey)] cholecalciferol (vitamin D3) 4,000 4,000 unit PO DAILY 01/19/18 unit tablet nitroglycerin 0.4 mg sublingual 0.4 mg SUBLINGUAL Q5-15M PRN 01/19/18 tablet potassium chloride ER 20 mEq 20 meq PO BID tab 01/19/18 tablet,extended release Cetirizine HCl [All Day Allergy] 10 mg PO DAILY 04/12/18 Clopidogrel Bisulfate [Plavix] 75 mg PO DAILY 04/12/18 Isosorbide Mononitrate [Imdur] 60 mg PO DAILY 04/12/18 Lubiprostone [Amitiza] 8 mcg PO BID 04/12/18 Surgical History: Surgical History (Last Reviewed 04/12/18 @ 15:39 by YRN Chew) History of coronary artery stent placement (Chronic) Onset Date: 08/13/17 Z95.5 [id number]-Vosu 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 Psychiatric History: Anxiety, Depression Lives: Spouse/ Significant Other Smoking Status: Former smoker Alcohol: None Drugs: None - *Family History Maternal History Items: - - Denies maternal cardiac history Paternal History Items: - - Father with a history of Parkinson's disease. Review of Systems Constitutional: Denies: Chills, Fever, Weight Change HEENT: Denies: Head Aches, Sinus Congestion, Sinus Drainage Cardiovascular: Reports: Chest Pain, Syncope. Denies: Edema, Palpitations Respiratory: Denies: Cough, Shortness of breath at rest, Sputum production Gastrointestinal: Denies: Abdominal Pain, Nausea, Vomiting Genitourinary: Denies: Dysuria Musculoskeletal: Denies: Joint Pain, Joint Tenderness Skin: Denies: Rash, Wounds Neurological: Reports: - - Left facial numbness/tingling.. Denies: Balance problems, Blurred vision, Double vision, Slurred speech, Confusion, Focal weakness, Seizures Psychiatric: Reports: Anxiety, Depression. Denies: Homicidal Ideations, Suicidal Ideations Hematologic/ Lymphatic: Denies: Easy Bruising, Easy Bleeding VTE Information - Inpt Only VTE Present on Admission: No VTE Mechan Device Prophylaxis: None VTE Pharm Prophylaxis ordered?: Yes - Physical Exam General: Alert, Oriented x3, Cooperative HEENT: Atraumatic, PERRLA, EOMI, Normocephalic Neck: Supple, No JVD, Negative Carotid Bruits Lungs: Clear to auscultation, Diminished Cardiovascular: Regular rate, Regular Rhythm, Normal S1, Normal S2, No murmurs Abdomen: Bowel Sounds Present, Soft, Non Tender, Non-Distended, Obese Extremities: No clubbing, No cyanosis, No edema, Capillary Refill Less than 3 Seconds Skin: No rashes, No breakdown Musculoskeletal: No Tenderness to Palpation of Joints or Extremities Neurological: Cranial nerves II-XII grossly intact, Neuro grossly intact Psych/Mental Status: Normal Affect, Appropriate Vital Signs Temp Pulse Resp BP Pulse Ox 98.3 F 66 18 130/64 H 97 04/12/18 13:19 04/12/18 15:19 04/12/18 15:19 04/12/18 15:19 04/12/18 15:19 Oxygen Flow Rate (L/min) 2 Oxygen Delivery Method Nasal Cannula Weight: 223 lb 12.307 oz Body Mass Index (BMI) 33.0 Finger Stick Blood Glucose 103 Laboratory Tests Past 24 Hrs 04/12/18 04/12/18 04/12/18 13:50 13:50 13:50 WBC 4.9 RBC 4.84 Hgb 14.1 Hct 43.4 MCV 89.7 MCH 29.1 MCHC 32.5 RDW 14.4 RDW Differential 46.9 H Plt Count 131 L MPV 12.2 H Immature Gran % (Auto) 0.400 Neut % (Auto) 63.5 Lymph % (Auto) 22.9 [place] % (Auto) 12.6 H Eos % (Auto) 0.4 Baso % (Auto) 0.2 Absolute Neuts (auto) 3.1 Absolute Lymphs (auto) 1.11 Total Counted Not Reportable PT 14.1 INR 1.1 APTT 31.3 Sodium 143 Potassium 4.4 Chloride 111 H Carbon Dioxide 26.0 Anion Gap 6 BUN 15 Creatinine 1.26 Estim Creat Clear Calc 52.99 Est GFR (MDRD) Af Amer 72 Est GFR (MDRD) Non-Af 60 BUN/Creatinine Ratio 11.9 Glucose 103 Calcium 8.4 L Troponin I < 0.015 Assessment/Plan All Active Problems (Last Reviewed 01/21/18 @ 10:49 by Maria R Bautista) Chest pain (Acute) 1. Chest pain/Syncope- Occurred following colonoscopy today. Patient reports chronic intermittent chest pain. Suspect syncope secondary to anesthesia. EKG sinus rhythm without ST-T changes. Troponin negative x1. Trend enzymes. Patient had echo August 2017 which showed an EF of 65%, stage I diastolic dysfunction, RVSP estimated to be 30 mmHg. Repeat EKG in a.m. Obtain orthostatic vitals. Patient had recent cath December 2017 with nonobstructive coronary arteries. Chest x-ray without acute process. 2. Left facial numbness-history of TIA. Facial numbness resolved. CT of brain without acute infarct. Complete NIH Q4. Continue aspirin, statin, Plavix. 3. CAD status post PCI x6-follows with Dr. Olmstead. Cardiac catheterization December 2017 with widely patent LCx and RCA stents. No significant LAD disease. Continue aspirin, statin, Plavix, Imdur, metoprolol. 4. Hypertension-stable, continue home isosorbide, metoprolol, spironolactone, Lasix regimen. 5. Hyperlipidemia-continue statin. 6. Chronic COPD-no acute exacerbation. PRN albuterol aerosol. 7. Type 2 diabetes mellitus-hold home oral regimen. Accu-Cheks before meals at bedtime with sliding scale insulin. 8. 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 stage III-at baseline, trend BMP. 9. MATTHEW-continue CPAP nightly. 10. Forward tobacco use-encouraged continued cessation. 11. Depression/anxiety-continue home Effexor regimen. 12. GERD-continue PPI. 13. Obesity-encouraged diet and lifestyle modifications. DVT prophylaxis-lovenox sc This patient was seen by YRN Chew under the supervision of Dr. Lomas.
[2018-04-12 19:34] LABS: Magnesium 1.8 mg/dL (1.6-2.6); Thyroid Stim Hormone (TSH) 2.74 uIU/mL (0.358-3.74)
[2018-04-12] MEDS: Metoprolol Tartrate 25 MG Tablet PO (21:18)
[2018-04-12 21:45] LABS: Bedside Glucose 112 mg/dL (70-110)
[2018-04-13] VITALS (7 sets, daily range): BP systolic 114–130; BP diastolic 64–89; PULSE 52–62; RESP 16–18; TEMP 36.4–36.8; O2SAT 94–96
[2018-04-13] MEDS: Heparin Injection (Vial) 5,000 UNIT/ML VIAL 5000 UNIT SC (05:19)
--- NOTE | 2018-04-13 05:55 | EKG12_ITS ---
Test Reason : AM EKG Blood Pressure : / mmHG Vent. Rate : 057 BPM Atrial Rate : 057 BPM P-R Int : 172 ms QRS Dur : 084 ms QT Int : 432 ms P-R-T Axes : 074 065 064 degrees QTc Int : 420 ms Sinus bradycardia Nonspecific T wave abnormality Abnormal ECG When compared with ECG of 12-APR-2018 13:16, MANUAL COMPARISON REQUIRED, DATA IS UNCONFIRMED Confirmed by NAOMIE PALOMO, PARVEZ ([id number]), manuscript editor MARLENY SIMENTAL ([id number]) on 04/15/2018 11:04:41 AM Referred By: HERNANDO Confirmed By:PARVEZ AKBAR MD
[2018-04-13 06:33] LABS: Cholesterol 189 mg/dL (200); High Density Lipoprotein 37 mg/dL; Triglycerides 201 mg/dL; Very Low Density Lipoprotein 40 mg/dL (5-40)
[2018-04-13 06:56] LABS: Bedside Glucose 127 mg/dL (70-110)
--- NOTE | 2018-04-13 09:59 | NURSING ---
Pt refused all AM meds; pt to be discharged to day per Claudia Cruz NP; pt will resume meds at home.
--- NOTE | 2018-04-13 10:30 | DCINST_ITS ---
You will use the following diet at home:: Cardiac Discharge Activity: Return to Normal Activity Call your doctor if you observe: Numbness or Tingling, Shortness of breath, Dizziness, Fainting spells, Chest pain Allergies/Adverse Reactions: Allergies No Known Allergies Allergy (Verified 04/12/18 13:16) Medications to take at Discharge Aspirin E.C. [Ecotrin] 81 mg PO DAILY@0800 01/21/17 Pantoprazole Sodium [Protonix] 40 mg PO BID 01/21/17 Spironolactone [Aldactone] 50 mg PO DAILY 01/21/17 Venlafaxine XR [Effexor Xr] 150 mg PO DAILY 11/30/17 cholecalciferol (vitamin D3) 4,000 unit tablet 4,000 unit PO DAILY 01/19/18 nitroglycerin 0.4 mg sublingual tablet 0.4 mg SUBLINGUAL Q5-15M PRN 01/19/18 Clopidogrel Bisulfate [Plavix] 75 mg PO DAILY 04/12/18 Cyanocobalamin [Vitamin B12] 1,000 mcg PO DAILY@0800 04/12/18 Furosemide [Lasix] 20 mg PO DAILY 04/12/18 Glimepiride [Amaryl] 1 mg PO DAILY 04/12/18 Isosorbide Mononitrate [Imdur] 60 mg PO DAILY 04/12/18 Lubiprostone [Amitiza] 8 mcg PO BID 04/12/18 Magnesium Oxide [Mag-Ox 400] 800 mg PO DAILY 04/12/18 Metoprolol Tartrate [Lopressor (beta jeffrey)] 25 mg PO BID 04/12/18 Potassium Chloride [K-Dur] 20 meq PO BID 04/12/18 Pravastatin [Pravachol] 20 mg PO QHS 04/12/18 Primary Care Physician: Victor M Luke DO [Primary Care Provider] - Please follow up with your Primary Care Physician in: 1 Week Test Results: Test results from this visit will be discussed in further detail at your follow- up appointment, if applicable. Proposed Discharge Date: 04/13/18
--- NOTE | 2018-04-13 10:30 | PCM.DC.SUM ---
<Leigha Cruz - Last Filed: 04/13/18 10:48> Discharge Date and Diagnosis Date of Admission: 04/12/18 Date of Discharge: 04/13/18 - Primary Discharge Diagnosis 1. Noncardiac chest pain 2. Presyncope following anesthesia 3. Brief left facial numbness/tingling, possible TIA 4. Hypertensive urgency 5. CAD status post PCI x6, most recently August 2017 6. Hyperlipidemia 7. Chronic COPD 8. Type 2 diabetes mellitus 9. 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 stage III 10. 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 Depression/anxiety 13. GERD 14. 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 PCI-POBA-Cx and Stent-Mid RCA x 2 Multi Link Mini Vision Rx Stent 4.0 x 28 mm 01/21/2006 Type 2 diabetes mellitus without complications (Chronic) Hypertension (Chronic) Hyperlipidemia (Chronic) Old myocardial infarction (Chronic) Obesity (Chronic) History of coronary artery stent placement (Chronic 08/13/17) [id number] 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 Electronically Signed: Constantin Lee MD at 15:07 EST Tel [phone], Service support , Chest X-Ray 04/12/18 13:32 IMPRESSION: Stable examination. Findings suggest mild scarring at the left lung base. Electronically Signed: Constantin Lee MD at 14:19 EST Tel [phone], Service support , Operations: None Procedures: None Summary of Care Provided: The patient is a 72 year old M admitted 04/12/2018 due to chest pain, left facial numbness. 1. Chest pain/Syncope- Occurred following colonoscopy. Patient reports chronic intermittent chest pain. Suspect syncope secondary to anesthesia. EKG sinus rhythm without ST-T changes. Troponin negative. Patient had echo August 2017 which showed an EF of 65%, stage I diastolic dysfunction, RVSP estimated to be 30 mmHg. Patient had recent cath December 2017 with nonobstructive coronary arteries. Chest x-ray without acute process. Cardiac etiology ruled out. 2. Left facial numbness-history of TIA, possible recurrent TIA. Facial numbness resolved quickly. CT of brain without acute infarct. NIH 0. Continue aspirin, statin, Plavix. 3. CAD status post PCI x6-follows with Dr. Olmstead. Cardiac catheterization December 2017 with widely patent LCx and RCA stents. No significant LAD disease. Continue aspirin, statin, Plavix, Imdur, metoprolol. 4. Hypertensive urgency-resolved. Continue home isosorbide, metoprolol, spironolactone, Lasix regimen. Suspect patient's blood pressure elevated due to holding home medications prior to colonoscopy. 5. Hyperlipidemia-continue statin. 6. Chronic COPD-no acute exacerbation. 7. Type 2 diabetes mellitus-continue home regimen. 8. 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 stage III-at baseline. 9. MATTHEW-continue CPAP nightly. 10. Forward tobacco use-encouraged continued cessation. 11. Depression/anxiety-continue home Effexor regimen. 12. GERD-continue PPI. 13. Obesity-encouraged diet and lifestyle modifications. General: Alert, Oriented x3, Cooperative HEENT: Atraumatic, PERRLA, EOMI, Normocephalic Neck: Supple, No JVD, Negative Carotid Bruits Lungs: Clear to auscultation, Diminished Cardiovascular: Regular rate, Regular Rhythm, Normal S1, Normal S2, No murmurs Abdomen: Bowel Sounds Present, Soft, Non Tender, Non-Distended, Obese Extremities: No clubbing, No cyanosis, No edema, Capillary Refill Less than 3 Seconds Skin: No rashes, No breakdown Musculoskeletal: No Tenderness to Palpation of Joints or Extremities Neurological: Cranial nerves II-XII grossly intact, Neuro grossly intact Psych/Mental Status: Normal Affect, Appropriate Patient seen and examined prior to discharge. Physical assessment as noted above. Patient is stable for discharge with follow up recommendations as noted above. This patient was seen by [facility] under the supervision of Dr. Santos. - Physical Exam Vital Signs Temp Pulse Resp BP Pulse Ox 98.0 F 52 L 18 130/89 H 96 04/13/18 08:20 04/13/18 08:20 04/13/18 08:20 04/13/18 08:20 04/13/18 08:20 Oxygen Flow Rate (L/min) 2 Oxygen Delivery Method Room Air Weight: 220 lb 0.341 oz Body Mass Index (BMI) 32.5 Finger Stick Blood Glucose 103 Intake and Output for Last 24 Hours 04/11/18 04/12/18 04/13/18 23:59 23:59 23:59 Intake Total 300 / 300 300 / 300 Output Total 300 / 300 550 / 550 Balance 0 / 0 -250 / -250 Laboratory Tests Past 24 Hrs 04/12/18 04/12/18 04/12/18 13:50 13:50 13:50 WBC 4.9 RBC 4.84 Hgb 14.1 Hct 43.4 MCV 89.7 MCH 29.1 MCHC 32.5 RDW 14.4 RDW Differential 46.9 H Plt Count 131 L MPV 12.2 H Immature Gran % (Auto) 0.400 Neut % (Auto) 63.5 Lymph % (Auto) 22.9 Gilchrist % (Auto) 12.6 H Eos % (Auto) 0.4 Baso % (Auto) 0.2 Absolute Neuts (auto) 3.1 Absolute Lymphs (auto) 1.11 Total Counted Not Reportable PT 14.1 INR 1.1 APTT 31.3 Sodium 143 Potassium 4.4 Chloride 111 H Carbon Dioxide 26.0 Anion Gap 6 BUN 15 Creatinine 1.26 Estim Creat Clear Calc 52.99 Est GFR (MDRD) Af Amer 72 Est GFR (MDRD) Non-Af 60 BUN/Creatinine Ratio 11.9 Glucose 103 Calcium 8.4 L Magnesium Troponin I < 0.015 Triglycerides Cholesterol LDL Cholesterol VLDL Cholesterol HDL Cholesterol TSH 04/12/18 04/12/18 04/12/18 14:47 16:42 16:42 WBC RBC Hgb Hct MCV MCH MCHC RDW RDW Differential Plt Count MPV Immature Gran % (Auto) Neut % (Auto) Lymph % (Auto) Gilchrist % (Auto) Eos % (Auto) Baso % (Auto) Absolute Neuts (auto) Absolute Lymphs (auto) Total Counted PT INR APTT Sodium Potassium Chloride Carbon Dioxide Anion Gap BUN Creatinine Estim Creat Clear Calc Est GFR (MDRD) Af Amer Est GFR (MDRD) Non-Af BUN/Creatinine Ratio Glucose Calcium Magnesium 1.8 Troponin I < 0.015 < 0.015 Triglycerides Cholesterol LDL Cholesterol VLDL Cholesterol HDL Cholesterol TSH 2.74 04/13/18 05:25 WBC RBC Hgb Hct MCV MCH MCHC RDW RDW Differential Plt Count MPV Immature Gran % (Auto) Neut % (Auto) Lymph % (Auto) Gilchrist % (Auto) Eos % (Auto) Baso % (Auto) Absolute Neuts (auto) Absolute Lymphs (auto) Total Counted PT INR APTT Sodium Potassium Chloride Carbon Dioxide Anion Gap BUN Creatinine Estim Creat Clear Calc Est GFR (MDRD) Af Amer Est GFR (MDRD) Non-Af BUN/Creatinine Ratio Glucose Calcium Magnesium Troponin I Triglycerides 201 H Cholesterol 189 LDL Cholesterol 112 VLDL Cholesterol 40 HDL Cholesterol 37 L TSH POC Glucose 04/13/18 04/12/18 06:48 21:14 POC Glucose 127 H 112 H Discharge Diet: Low fat/ Low Cholesterol Discharge Activity: Return to Normal Activity Call your doctor if you observe: Numbness or Tingling, Shortness of breath, Dizziness, Fainting spells, Chest pain Home Medications: Medications to take at Discharge Aspirin E.C. [Ecotrin] 81 mg PO DAILY@0800 01/21/17 Pantoprazole Sodium [Protonix] 40 mg PO BID 01/21/17 Spironolactone [Aldactone] 50 mg PO DAILY 01/21/17 Venlafaxine XR [Effexor Xr] 150 mg PO DAILY 11/30/17 cholecalciferol (vitamin D3) 4,000 unit tablet 4,000 unit PO DAILY 01/19/18 nitroglycerin 0.4 mg sublingual tablet 0.4 mg SUBLINGUAL Q5-15M PRN 01/19/18 Clopidogrel Bisulfate [Plavix] 75 mg PO DAILY 04/12/18 Cyanocobalamin [Vitamin B12] 1,000 mcg PO DAILY@0800 04/12/18 Furosemide [Lasix] 20 mg PO DAILY 04/12/18 Glimepiride [Amaryl] 1 mg PO DAILY 04/12/18 Isosorbide Mononitrate [Imdur] 60 mg PO DAILY 04/12/18 Lubiprostone [Amitiza] 8 mcg PO BID 04/12/18 Magnesium Oxide [Mag-Ox 400] 800 mg PO DAILY 04/12/18 Metoprolol Tartrate [Lopressor (beta jeffrey)] 25 mg PO BID 04/12/18 Potassium Chloride [K-Dur] 20 meq PO BID 04/12/18 Pravastatin [Pravachol] 20 mg PO QHS 04/12/18 Primary Care Physician: Victor M Luke DO [Primary Care Provider] - Please follow up with your Primary Care Physician in: 1 Week Disposition: Home Minutes spent on discharge:: 35 Patient Condition:: Stable Medical Necessity - Tobacco Use Smoking Status: Former smoker Tobacco Use: Cigarettes, Pipe Meaningful Use Info Meaningful Use Diagnoses (Choose all that apply): None applicable <Shaan Santos - Last Filed: 04/13/18 10:56> Discharge Date and Diagnosis - Secondary Discharge Diagnosis Chronic Problems (Last Reviewed 04/12/18 @ 15:39 by Leigha Cruz NP-C) COPD (chronic obstructive pulmonary disease) (Chronic) 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.9) (Chronic) MATTHEW (obstructive sleep apnea) (Chronic) CKD (chronic kidney disease) stage 3, GFR 30-59 ml/min (Chronic) Atherosclerotic heart disease [place] coronary artery w/angina pectoris (Chronic) [id number] 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 PCI-POBA-Cx and Stent-Mid RCA x 2 Multi Link Mini Vision Rx Stent 4.0 x 28 mm 01/21/2006 Type 2 diabetes mellitus without complications (Chronic) Hypertension (Chronic) Hyperlipidemia (Chronic) Old myocardial infarction (Chronic) Obesity (Chronic) History of coronary artery stent placement (Chronic 08/13/17) [id number] 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 Data reviewed. I agree with the above note by the nurse practitioner. The patient is a 72 year old M presents with chest pain and left facial numbness. Blood pressure was in the 190s. Patient was evaluated in the hospital and had no further events. Patient did undergo a left heart catheterization back in December that showed normal coronaries.. Is felt that the symptoms are probably treatable to patient just having had his colonoscopy and as well as his uncontrolled blood pressure at that time. No additional workup was necessary and patient has remained asymptomatic during the course of this hospitalization. [] - Physical Exam General: Alert, Cooperative, No apparent distress HEENT: Atraumatic, Normocephalic Psych/Mental Status: Normal Affect, Appropriate Vital Signs Temp Pulse Resp BP Pulse Ox 36.7 C 52 L 18 130/89 H 96 04/13/18 08:20 04/13/18 08:20 04/13/18 08:20 04/13/18 08:20 04/13/18 08:20 Oxygen Flow Rate (L/min) 2 Oxygen Delivery Method Room Air Weight: 99.8 kg Body Mass Index (BMI) 32.5 Finger Stick Blood Glucose 103 Intake and Output for Last 24 Hours 04/11/18 04/12/18 04/13/18 23:59 23:59 23:59 Intake Total 300 / 300 300 / 300 Output Total 300 / 300 550 / 550 Balance 0 / 0 -250 / -250 Laboratory Tests Past 24 Hrs 04/12/18 04/12/18 04/12/18 13:50 13:50 13:50 WBC 4.9 RBC 4.84 Hgb 14.1 Hct 43.4 MCV 89.7 MCH 29.1 MCHC 32.5 RDW 14.4 RDW Differential 46.9 H Plt Count 131 L MPV 12.2 H Immature Gran % (Auto) 0.400 Neut % (Auto) 63.5 Lymph % (Auto) 22.9 Gilchrist % (Auto) 12.6 H Eos % (Auto) 0.4 Baso % (Auto) 0.2 Absolute Neuts (auto) 3.1 Absolute Lymphs (auto) 1.11 Total Counted Not Reportable PT 14.1 INR 1.1 APTT 31.3 Sodium 143 Potassium 4.4 Chloride 111 H Carbon Dioxide 26.0 Anion Gap 6 BUN 15 Creatinine 1.26 Estim Creat Clear Calc 52.99 Est GFR (MDRD) Af Amer 72 Est GFR (MDRD) Non-Af 60 BUN/Creatinine Ratio 11.9 Glucose 103 Calcium 8.4 L Magnesium Troponin I < 0.015 Triglycerides Cholesterol LDL Cholesterol VLDL Cholesterol HDL Cholesterol TSH 04/12/18 04/12/18 04/12/18 14:47 16:42 16:42 WBC RBC Hgb Hct MCV MCH MCHC RDW RDW Differential Plt Count MPV Immature Gran % (Auto) Neut % (Auto) Lymph % (Auto) Gilchrist % (Auto) Eos % (Auto) Baso % (Auto) Absolute Neuts (auto) Absolute Lymphs (auto) Total Counted PT INR APTT Sodium Potassium Chloride Carbon Dioxide Anion Gap BUN Creatinine Estim Creat Clear Calc Est GFR (MDRD) Af Amer Est GFR (MDRD) Non-Af BUN/Creatinine Ratio Glucose Calcium Magnesium 1.8 Troponin I < 0.015 < 0.015 Triglycerides Cholesterol LDL Cholesterol VLDL Cholesterol HDL Cholesterol TSH 2.74 04/13/18 05:25 WBC RBC Hgb Hct MCV MCH MCHC RDW RDW Differential Plt Count MPV Immature Gran % (Auto) Neut % (Auto) Lymph % (Auto) Gilchrist % (Auto) Eos % (Auto) Baso % (Auto) Absolute Neuts (auto) Absolute Lymphs (auto) Total Counted PT INR APTT Sodium Potassium Chloride Carbon Dioxide Anion Gap BUN Creatinine Estim Creat Clear Calc Est GFR (MDRD) Af Amer Est GFR (MDRD) Non-Af BUN/Creatinine Ratio Glucose Calcium Magnesium Troponin I Triglycerides 201 H Cholesterol 189 LDL Cholesterol 112 VLDL Cholesterol 40 HDL Cholesterol 37 L TSH POC Glucose 04/13/18 04/12/18 06:48 21:14 POC Glucose 127 H 112 H Discharge Diet: Low fat/ Low Cholesterol Discharge Activity: Return to Normal Activity Call your doctor if you observe: Numbness or Tingling, Shortness of breath, Dizziness, Fainting spells, Chest pain Disposition: Home Patient Condition:: Stable Meaningful Use Info Meaningful Use Diagnoses (Choose all that apply): None applicable Code Visit OBSV E&M: 03607 Observation care discharge
--- NOTE | 2018-04-13 10:37 | DS.PCM_ITS ---
<Leigha Cruz - Last Filed: 04/13/18 10:48> Discharge Date and Diagnosis Date of Admission: 04/12/18 Date of Discharge: 04/13/18 - Primary Discharge Diagnosis 1. Noncardiac chest pain 2. Presyncope following anesthesia 3. Brief left facial numbness/tingling, possible TIA 4. Hypertensive urgency 5. CAD status post PCI x6, most recently August 2017 6. Hyperlipidemia 7. Chronic COPD 8. Type 2 diabetes mellitus 9. 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 stage III 10. 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 Depression/anxiety 13. GERD 14. 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 PCI-POBA-Cx and Stent-Mid RCA x 2 Multi Link Mini Vision Rx Stent 4.0 x 28 mm 01/21/2006 Type 2 diabetes mellitus without complications (Chronic) Hypertension (Chronic) Hyperlipidemia (Chronic) Old myocardial infarction (Chronic) Obesity (Chronic) History of coronary artery stent placement (Chronic 08/13/17) [id number] 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 Electronically Signed: Constantin Lee MD at 15:07 EST Tel [phone], Service support , Chest X-Ray 04/12/18 13:32 IMPRESSION: Stable examination. Findings suggest mild scarring at the left lung base. Electronically Signed: Constantin Lee MD at 14:19 EST Tel [phone], Service support , Operations: None Procedures: None Summary of Care Provided: The patient is a 72 year old M admitted 04/12/2018 due to chest pain, left facial numbness. 1. Chest pain/Syncope- Occurred following colonoscopy. Patient reports chronic intermittent chest pain. Suspect syncope secondary to anesthesia. EKG sinus rhythm without ST-T changes. Troponin negative. Patient had echo August 2017 which showed an EF of 65%, stage I diastolic dysfunction, RVSP estimated to be 30 mmHg. Patient had recent cath December 2017 with nonobstructive coronary arteries. Chest x-ray without acute process. Cardiac etiology ruled out. 2. Left facial numbness-history of TIA, possible recurrent TIA. Facial numbness resolved quickly. CT of brain without acute infarct. NIH 0. Continue aspirin, statin, Plavix. 3. CAD status post PCI x6-follows with Dr. Olmstead. Cardiac catheterization December 2017 with widely patent LCx and RCA stents. No significant LAD disease. Continue aspirin, statin, Plavix, Imdur, metoprolol. 4. Hypertensive urgency-resolved. Continue home isosorbide, metoprolol, spironolactone, Lasix regimen. Suspect patient's blood pressure elevated due to holding home medications prior to colonoscopy. 5. Hyperlipidemia-continue statin. 6. Chronic COPD-no acute exacerbation. 7. Type 2 diabetes mellitus-continue home regimen. 8. 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 stage III-at baseline. 9. MATTHEW-continue CPAP nightly. 10. Forward tobacco use-encouraged continued cessation. 11. Depression/anxiety-continue home Effexor regimen. 12. GERD-continue PPI. 13. Obesity-encouraged diet and lifestyle modifications. General: Alert, Oriented x3, Cooperative HEENT: Atraumatic, PERRLA, EOMI, Normocephalic Neck: Supple, No JVD, Negative Carotid Bruits Lungs: Clear to auscultation, Diminished Cardiovascular: Regular rate, Regular Rhythm, Normal S1, Normal S2, No murmurs Abdomen: Bowel Sounds Present, Soft, Non Tender, Non-Distended, Obese Extremities: No clubbing, No cyanosis, No edema, Capillary Refill Less than 3 Seconds Skin: No rashes, No breakdown Musculoskeletal: No Tenderness to Palpation of Joints or Extremities Neurological: Cranial nerves II-XII grossly intact, Neuro grossly intact Psych/Mental Status: Normal Affect, Appropriate Patient seen and examined prior to discharge. Physical assessment as noted above. Patient is stable for discharge with follow up recommendations as noted above. This patient was seen by [facility] under the supervision of Dr. Santos. - Physical Exam Vital Signs Temp Pulse Resp BP Pulse Ox 98.0 F 52 L 18 130/89 H 96 04/13/18 08:20 04/13/18 08:20 04/13/18 08:20 04/13/18 08:20 04/13/18 08:20 Oxygen Flow Rate (L/min) 2 Oxygen Delivery Method Room Air Weight: 220 lb 0.341 oz Body Mass Index (BMI) 32.5 Finger Stick Blood Glucose 103 Intake and Output for Last 24 Hours 04/11/18 04/12/18 04/13/18 23:59 23:59 23:59 Intake Total 300 / 300 300 / 300 Output Total 300 / 300 550 / 550 Balance 0 / 0 -250 / -250 Laboratory Tests Past 24 Hrs 04/12/18 04/12/18 04/12/18 13:50 13:50 13:50 WBC 4.9 RBC 4.84 Hgb 14.1 Hct 43.4 MCV 89.7 MCH 29.1 MCHC 32.5 RDW 14.4 RDW Differential 46.9 H Plt Count 131 L MPV 12.2 H Immature Gran % (Auto) 0.400 Neut % (Auto) 63.5 Lymph % (Auto) 22.9 [place] % (Auto) 12.6 H Eos % (Auto) 0.4 Baso % (Auto) 0.2 Absolute Neuts (auto) 3.1 Absolute Lymphs (auto) 1.11 Total Counted Not Reportable PT 14.1 INR 1.1 APTT 31.3 Sodium 143 Potassium 4.4 Chloride 111 H Carbon Dioxide 26.0 Anion Gap 6 BUN 15 Creatinine 1.26 Estim Creat Clear Calc 52.99 Est GFR (MDRD) Af Amer 72 Est GFR (MDRD) Non-Af 60 BUN/Creatinine Ratio 11.9 Glucose 103 Calcium 8.4 L Magnesium Troponin I < 0.015 Triglycerides Cholesterol LDL Cholesterol VLDL Cholesterol HDL Cholesterol TSH 04/12/18 04/12/18 04/12/18 14:47 16:42 16:42 WBC RBC Hgb Hct MCV MCH MCHC RDW RDW Differential Plt Count MPV Immature Gran % (Auto) Neut % (Auto) Lymph % (Auto) [place] % (Auto) Eos % (Auto) Baso % (Auto) Absolute Neuts (auto) Absolute Lymphs (auto) Total Counted PT INR APTT Sodium Potassium Chloride Carbon Dioxide Anion Gap BUN Creatinine Estim Creat Clear Calc Est GFR (MDRD) Af Amer Est GFR (MDRD) Non-Af BUN/Creatinine Ratio Glucose Calcium Magnesium 1.8 Troponin I < 0.015 < 0.015 Triglycerides Cholesterol LDL Cholesterol VLDL Cholesterol HDL Cholesterol TSH 2.74 04/13/18 05:25 WBC RBC Hgb Hct MCV MCH MCHC RDW RDW Differential Plt Count MPV Immature Gran % (Auto) Neut % (Auto) Lymph % (Auto) [place] % (Auto) Eos % (Auto) Baso % (Auto) Absolute Neuts (auto) Absolute Lymphs (auto) Total Counted PT INR APTT Sodium Potassium Chloride Carbon Dioxide Anion Gap BUN Creatinine Estim Creat Clear Calc Est GFR (MDRD) Af Amer Est GFR (MDRD) Non-Af BUN/Creatinine Ratio Glucose Calcium Magnesium Troponin I Triglycerides 201 H Cholesterol 189 LDL Cholesterol 112 VLDL Cholesterol 40 HDL Cholesterol 37 L TSH POC Glucose 04/13/18 04/12/18 06:48 21:14 POC Glucose 127 H 112 H Discharge Diet: Low fat/ Low Cholesterol Discharge Activity: Return to Normal Activity Call your doctor if you observe: Numbness or Tingling, Shortness of breath, Dizziness, Fainting spells, Chest pain Home Medications: Medications to take at Discharge Aspirin E.C. [Ecotrin] 81 mg PO DAILY@0800 01/21/17 Pantoprazole Sodium [Protonix] 40 mg PO BID 01/21/17 Spironolactone [Aldactone] 50 mg PO DAILY 01/21/17 Venlafaxine XR [Effexor Xr] 150 mg PO DAILY 11/30/17 cholecalciferol (vitamin D3) 4,000 unit tablet 4,000 unit PO DAILY 01/19/18 nitroglycerin 0.4 mg sublingual tablet 0.4 mg SUBLINGUAL Q5-15M PRN 01/19/18 Clopidogrel Bisulfate [Plavix] 75 mg PO DAILY 04/12/18 Cyanocobalamin [Vitamin B12] 1,000 mcg PO DAILY@0800 04/12/18 Furosemide [Lasix] 20 mg PO DAILY 04/12/18 Glimepiride [Amaryl] 1 mg PO DAILY 04/12/18 Isosorbide Mononitrate [Imdur] 60 mg PO DAILY 04/12/18 Lubiprostone [Amitiza] 8 mcg PO BID 04/12/18 Magnesium Oxide [Mag-Ox 400] 800 mg PO DAILY 04/12/18 Metoprolol Tartrate [Lopressor (beta jeffrey)] 25 mg PO BID 04/12/18 Potassium Chloride [K-Dur] 20 meq PO BID 04/12/18 Pravastatin [Pravachol] 20 mg PO QHS 04/12/18 Primary Care Physician: Victor M Luke DO [Primary Care Provider] - Please follow up with your Primary Care Physician in: 1 Week Disposition: Home Minutes spent on discharge:: 35 Patient Condition:: Stable Medical Necessity - Tobacco Use Smoking Status: Former smoker Tobacco Use: Cigarettes, Pipe Meaningful Use Info Meaningful Use Diagnoses (Choose all that apply): None applicable <Shaan Santos - Last Filed: 04/13/18 10:56> Discharge Date and Diagnosis - Secondary Discharge Diagnosis Chronic Problems (Last Reviewed 04/12/18 @ 15:39 by Leigha Cruz NP-C) COPD (chronic obstructive pulmonary disease) (Chronic) 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.9) (Chronic) MATTHEW (obstructive sleep apnea) (Chronic) CKD (chronic kidney disease) stage 3, GFR 30-59 ml/min (Chronic) Atherosclerotic heart disease [place] coronary artery w/angina pectoris (Chronic) [id number] 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 PCI-POBA-Cx and Stent-Mid RCA x 2 Multi Link Mini Vision Rx Stent 4.0 x 28 mm 01/21/2006 Type 2 diabetes mellitus without complications (Chronic) Hypertension (Chronic) Hyperlipidemia (Chronic) Old myocardial infarction (Chronic) Obesity (Chronic) History of coronary artery stent placement (Chronic 08/13/17) [id number] 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 Data reviewed. I agree with the above note by the nurse practitioner. The patient is a 72 year old M presents with chest pain and left facial numbness. Blood pressure was in the 190s. Patient was evaluated in the hospital and had no further events. Patient did undergo a left heart catheterization back in December that showed normal coronaries.. Is felt that the symptoms are probably treatable to patient just having had his colonoscopy and as well as his uncontrolled blood pressure at that time. No additional workup was necessary and patient has remained asymptomatic during the course of this hospitalization. [] - Physical Exam General: Alert, Cooperative, No apparent distress HEENT: Atraumatic, Normocephalic Psych/Mental Status: Normal Affect, Appropriate Vital Signs Temp Pulse Resp BP Pulse Ox 36.7 C 52 L 18 130/89 H 96 04/13/18 08:20 04/13/18 08:20 04/13/18 08:20 04/13/18 08:20 04/13/18 08:20 Oxygen Flow Rate (L/min) 2 Oxygen Delivery Method Room Air Weight: 99.8 kg Body Mass Index (BMI) 32.5 Finger Stick Blood Glucose 103 Intake and Output for Last 24 Hours 04/11/18 04/12/18 04/13/18 23:59 23:59 23:59 Intake Total 300 / 300 300 / 300 Output Total 300 / 300 550 / 550 Balance 0 / 0 -250 / -250 Laboratory Tests Past 24 Hrs 04/12/18 04/12/18 04/12/18 13:50 13:50 13:50 WBC 4.9 RBC 4.84 Hgb 14.1 Hct 43.4 MCV 89.7 MCH 29.1 MCHC 32.5 RDW 14.4 RDW Differential 46.9 H Plt Count 131 L MPV 12.2 H Immature Gran % (Auto) 0.400 Neut % (Auto) 63.5 Lymph % (Auto) 22.9 [place] % (Auto) 12.6 H Eos % (Auto) 0.4 Baso % (Auto) 0.2 Absolute Neuts (auto) 3.1 Absolute Lymphs (auto) 1.11 Total Counted Not Reportable PT 14.1 INR 1.1 APTT 31.3 Sodium 143 Potassium 4.4 Chloride 111 H Carbon Dioxide 26.0 Anion Gap 6 BUN 15 Creatinine 1.26 Estim Creat Clear Calc 52.99 Est GFR (MDRD) Af Amer 72 Est GFR (MDRD) Non-Af 60 BUN/Creatinine Ratio 11.9 Glucose 103 Calcium 8.4 L Magnesium Troponin I < 0.015 Triglycerides Cholesterol LDL Cholesterol VLDL Cholesterol HDL Cholesterol TSH 04/12/18 04/12/18 04/12/18 14:47 16:42 16:42 WBC RBC Hgb Hct MCV MCH MCHC RDW RDW Differential Plt Count MPV Immature Gran % (Auto) Neut % (Auto) Lymph % (Auto) [place] % (Auto) Eos % (Auto) Baso % (Auto) Absolute Neuts (auto) Absolute Lymphs (auto) Total Counted PT INR APTT Sodium Potassium Chloride Carbon Dioxide Anion Gap BUN Creatinine Estim Creat Clear Calc Est GFR (MDRD) Af Amer Est GFR (MDRD) Non-Af BUN/Creatinine Ratio Glucose Calcium Magnesium 1.8 Troponin I < 0.015 < 0.015 Triglycerides Cholesterol LDL Cholesterol VLDL Cholesterol HDL Cholesterol TSH 2.74 04/13/18 05:25 WBC RBC Hgb Hct MCV MCH MCHC RDW RDW Differential Plt Count MPV Immature Gran % (Auto) Neut % (Auto) Lymph % (Auto) [place] % (Auto) Eos % (Auto) Baso % (Auto) Absolute Neuts (auto) Absolute Lymphs (auto) Total Counted PT INR APTT Sodium Potassium Chloride Carbon Dioxide Anion Gap BUN Creatinine Estim Creat Clear Calc Est GFR (MDRD) Af Amer Est GFR (MDRD) Non-Af BUN/Creatinine Ratio Glucose Calcium Magnesium Troponin I Triglycerides 201 H Cholesterol 189 LDL Cholesterol 112 VLDL Cholesterol 40 HDL Cholesterol 37 L TSH POC Glucose 04/13/18 04/12/18 06:48 21:14 POC Glucose 127 H 112 H Discharge Diet: Low fat/ Low Cholesterol Discharge Activity: Return to Normal Activity Call your doctor if you observe: Numbness or Tingling, Shortness of breath, Dizziness, Fainting spells, Chest pain Disposition: Home Patient Condition:: Stable Meaningful Use Info Meaningful Use Diagnoses (Choose all that apply): None applicable Code Visit OBSV E&M: 66702 Observation care discharge
--- NOTE | 2018-04-13 11:55 | NURSING ---
Reviewed and agreed on all charting with Mayra Sebastian RN
--- OUTSIDE RECORDS SUMMARY | 2018-05-29 19:16 | XMS RPT_ITS ---
:1945 Author Organization OHIP Support Name Relationship Address Phone RADHA JAME Unavailable [address] + [place] [phone] WILBERT LAUREANO Unavailable [address] + [place] [address] R Unavailable Unavailable Unavailable RIESEL, VIRGINIA Unavailable [address] + [place] [address] WILBERT LAUREANO Unavailable [address] + [place] [address] R Unavailable Unavailable Unavailable RIESEL, VIRGINIA Unavailable [address] + [place] [address] WILBERT LAUREANO Unavailable [address] + [place] [address] R Unavailable Unavailable Unavailable RIESEL, VIRGINIA Unavailable [address] + [place] [address] GEE LAUREANORI Unavailable [address] + [place] [address] R Unavailable Unavailable Unavailable RIESEL, VIRGINIA Unavailable [address] + [place] [address] WILBERT LAUREANO Unavailable [address] + [place] [address] R Unavailable Unavailable Unavailable RIESEL, VIR[place]IA Unavailable [address] + [place] [address] WILBERT LAUREANO Unavailable [address] + [place] [address] R Unavailable Unavailable Unavailable RIESEL, VIRGINIA Unavailable [address] + [place] [address] GEE LAUREANORI Unavailable [address] + [place] [address] R Unavailable Unavailable Unavailable RIESEL, VIRGINIA Unavailable [address] + [place] [address] SRIDEVI WILBERT Unavailable [address] + [place] [address] R Unavailable Unavailable Unavailable RIESEL, VIRGINIA Unavailable [address] + [place] [address] SRIDEVI WILBERT Unavailable [address] + [place] [address] R Unavailable Unavailable Unavailable RIESEL, VIRGINIA Unavailable [address] + [place] [address] SRIDEVI, WILBERT Unavailable [address] + [place] [address] R Unavailable Unavailable Unavailable RIESEL, [place]IR[place]IA Unavailable [address] + [place] [address] SRIDEVI WILBERT Unavailable [address] + [place] [address] R Unavailable Unavailable Unavailable RIESEL, VIRGINIA Unavailable [address] + [place] [address] SRIDEVI WILBERT Unavailable [address] + [place] [address] R Unavailable Unavailable Unavailable RIESEL, VIR[place] Unavailable [address] + [place] [address] SRIDEVI WILBERT Unavailable [address] + [place] [address] R Unavailable Unavailable Unavailable RIESEL, VIRGINIA Unavailable [address] + [place] [address] SRIDEVI WILBERT Unavailable [address] + [place] [address] R Unavailable Unavailable Unavailable RIESEL, VIRGINIA Unavailable [address] + [place] [address] SRIDEVI WILBERT Unavailable [address] + [place] [address] R Unavailable Unavailable Unavailable RIESEL, VIR[place]IA Unavailable [address] + [place] [address] SRIDEVI, WILBERT Unavailable [address] + [place] [address] R Unavailable Unavailable Unavailable RIESEL, [place]IR[place] Unavailable [address] + [place] [address] SRIDEVI WILBERT Unavailable [address] + [place] [address] R Unavailable Unavailable Unavailable RIESEL, VIRGINIA Unavailable [address] + [place] [address] GEE LAUREANORI Unavailable [address] + [place] [address] R Unavailable Unavailable Unavailable RIESEL, VIRGINIA Unavailable [address] + [place] [address] SRIDEVI WILBERT Unavailable [address] + [place] [address] R Unavailable Unavailable Unavailable RIESEL, VIRGINIA Unavailable [address] + [place] [address] SRIDEVI WILBERT Unavailable [address] + [place] [address] R Unavailable Unavailable Unavailable RIESEL, VIR[place]IA Unavailable [address] + [place] [address] SRIDEVI WILBERT Unavailable [address] + [place] [address] R Unavailable Unavailable Unavailable RIESEL, [place]IR[place] Unavailable [address] + [place] [address] SRIDEVI WILBERT Unavailable [address] + [place] [address] R Unavailable Unavailable Unavailable RIESEL, VIRGINIA Unavailable [address] + [place] [address] SRIDEVI WILBERT Unavailable [address] + [place] [address] R Unavailable Unavailable Unavailable RIESEL, VIRGINIA Unavailable [address] + [place] [address] SRIDEVI WILBERT Unavailable [address] + [place] [address] R Unavailable Unavailable Unavailable RIESEL, VIRGINIA Unavailable [address] + [place] [address] SRIDEVI WILBERT Unavailable [address] + [place] [address] R Unavailable Unavailable Unavailable RIESEL, VIR[place] Unavailable [address] + [place] [address] SRIDEVI WILBERT Unavailable [address] + [place] [address] R Unavailable Unavailable Unavailable RIESEL, [place]IR[place] Unavailable [address] + [place] [address] GEE LAUREANORI Unavailable [address] + [place] [address] R Unavailable Unavailable Unavailable RIESEL, VIR[place]IA Unavailable [address] + [place] [address] SRIDEVI WILBERT Unavailable [address] + [place] [address] R Unavailable Unavailable Unavailable RIESEL, [place]IR[place] Unavailable [address] + [place] [address] SRIDEVI WILBERT Unavailable [address] + [place] [address] R Unavailable Unavailable Unavailable RIESEL, VIRGINIA Unavailable [address] + [place] [address] SRIDEVI WILBERT Unavailable [address] + [place] [address] R Unavailable Unavailable Unavailable RIESEL, [place]IR[place] Unavailable [address] + [place] [address] GEE LAUREANORI Unavailable [address] + [place] [address] R Unavailable Unavailable Unavailable RIESEL, VIR[place] Unavailable [address] + [place] [address] GEE LAUREANORI Unavailable [address] + [place] [address] R Unavailable Unavailable Unavailable RIESEL, [place]IR[place] Unavailable [address] + [place] [address] GEE LAUREANORI Unavailable [address] + [place] [address] R Unavailable Unavailable Unavailable RIESEL, VIR[place] Unavailable [address] + [place] [address] SRIDEVI WILBERT Unavailable [address] + [place] [address] R Unavailable Unavailable Unavailable RIESEL, VIR[place]IA Unavailable [address] + [place] [address] SRIDEVI WIBLERT Unavailable [address] + [place] [address] R Unavailable Unavailable Unavailable RIESEL, VIR[place] Unavailable [address] + [place] [address] SRIDEVI, WILBERT Unavailable [address] + [place] [address] R Unavailable Unavailable Unavailable RIESEL, VIR[place] Unavailable [address] + [place] [address] SRIDEVI WILBERT Unavailable [address] + [place] [address] R Unavailable Unavailable Unavailable RIESEL, VIR[place] Unavailable [address] + [place] [address] SRIDEVI WILBERT Unavailable [address] + [place] [address] R Unavailable Unavailable Unavailable RIESEL, VIRGINIA Unavailable [address] + [place] [address] SRIDEVI WILBERT Unavailable [address] + [place] [address] R Unavailable Unavailable Unavailable RIESEL, VIR[place] Unavailable [address] + [place] [address] SRIDEVI WILBERT Unavailable [address] + [place] [address] R Unavailable Unavailable Unavailable RIESEL, VIR[place] Unavailable [address] + [place] [address] SRIDEVI WILBERT Unavailable [address] + [place] [address] R Unavailable Unavailable Unavailable RIESEL, [place] Unavailable [address] + [place] [address] SRIDEVI WILBERT Unavailable [address] + [place] [address] R Unavailable Unavailable Unavailable RIESEL, VIR[place] Unavailable [address] + [place] [address] SRIDEVI WILBERT Unavailable [address] + [place] [address] R Unavailable Unavailable Unavailable RIESEL, [place]IR[place] Unavailable [address] + [place] [address] SRIDEVI WILBERT Unavailable [address] + [place] [address] R Unavailable Unavailable Unavailable RIESEL, [place] Unavailable [address] + [place] [address] SRIDEVI, WILBERT Unavailable [address] + [place] [address] R Unavailable Unavailable Unavailable JAME GARCIA Unavailable [address] + [place] [id number] WILBERT LAUREANO Unavailable [address] + [place] [id number] R Unavailable Unavailable Unavailable Care Team Providers Name Role Phone Marly, Victor M Primary Care Unavailable Sementi, Prema Admitting Unavailable Shaan Santos Attending Unavailable Sementi, Prema Admitting Unavailable Marly, Victor M Primary Care Unavailable Sementi, Prema Consulting Unavailable Semenzulma, Prema Attending Unavailable Victor M Luke Attending Unavailable Marly, Victor M Primary Care Unavailable Marly, Victor M Attending Unavailable Marly, Victor M Primary Care Unavailable Sementi, Prema Admitting Unavailable Marly, Victor M Primary Care Unavailable Shaan Santos Consulting Unavailable Shaan Santos Attending Unavailable Marcin Araujo Attending Unavailable Semenzulma, Prema Referring Unavailable Marilyn Addison Attending Unavailable Elías Bolanos Attending Unavailable Marly, Victor M Referring Unavailable Marly, Victor M Primary Care Unavailable Elías Bolanos Attending Unavailable Marly, Victor M Primary Care Unavailable Elías Bolanos Attending Unavailable Elías Bolanos Referring Unavailable Marly, Victor M Primary Care Unavailable Elías Bolanos Attending Unavailable Elías Bolanos Referring Unavailable Marly, Victor M Primary Care Unavailable Marly, Victor M Primary Care Unavailable Rasheed Canela Attending Unavailable Elías Bolanos Attending Unavailable Elías Bolanos Referring Unavailable Marly, Victor M Primary Care Unavailable Elías Bolanos Attending Unavailable Elías Bolanos Referring Unavailable Marly, Victor M Primary Care Unavailable Gustabo Pérez Attending Unavailable Elías Bolanos Referring Unavailable Marly, Victor M Primary Care Unavailable Elías Bolanos Consulting Unavailable Jose Suárez Attending Unavailable Elías Bolanos Referring Unavailable Marly, Victor M Primary Care Unavailable Elías Bolanos Consulting Unavailable Elías Bolanos Attending Unavailable Elías Bolanos Referring Unavailable MarlyVictor M Attending Unavailable Marly, Victor M Primary Care Unavailable Marly, Victor M Primary Care Unavailable Ben Wayne Attending Unavailable Elías Bolanos Attending Unavailable Marly, Victor M Referring Unavailable Marly, Victor M Primary Care Unavailable Elías Bolanos Attending Unavailable Marly, Victor M Primary Care Unavailable Elías Bolanos Attending Unavailable MarlyVictor M Attending Unavailable Marly, Victor M Referring Unavailable Marly, Victor M Primary Care Unavailable Marly, Victor M Primary Care Unavailable Jermain Lion Attending Unavailable Yael Yang Attending Unavailable Marly, Victor M Referring Unavailable Marly, Victor M Primary Care Unavailable Zen [place] D.O. Attending Unavailable Elías Bolanos Referring Unavailable Marly, Victor M Attending Unavailable Marly, Victor M Primary Care Unavailable Merritt Persaud Attending Unavailable Timothy Sexton Referring Unavailable Zen [place] D.O. Attending Unavailable Marly, Victor M Referring Unavailable John Loyd Attending Unavailable Elías Bolanos Referring Unavailable Marly, Victor M Attending Unavailable Marly, Victor M Primary Care Unavailable Marni Horn Attending Unavailable Marly, Victor M Referring Unavailable Marly, Victor M Attending Unavailable Marly, Victor M Primary Care Unavailable Gustabo Pérez H Attending Unavailable Beto, Gustabo H Referring Unavailable Marly, Victor M Primary Care Unavailable Marly, Victor M Primary Care Unavailable White, Alka Admitting Unavailable Elías Bolanos Consulting Unavailable Alex Sanon Attending Unavailable White, Alka Admitting Unavailable White, Alka Attending Unavailable Marly, Victor M Primary Care Unavailable White, Alka Consulting Unavailable White, Alka Admitting Unavailable Marly, Victor M Primary Care Unavailable Elías Bolanos Consulting Unavailable Ashelfah, Ghasem Attending Unavailable Ashelfah Ghasem Consulting Unavailable White, Alka Admitting Unavailable Alex Sanon Attending Unavailable Marly, Victor M Primary Care Unavailable Elías Bolanos Consulting Unavailable Alex Sanon Consulting Unavailable MarlyVictor M Attending Unavailable Marly, Victor M Primary Care Unavailable Elías Bolanos Attending Unavailable Elías Bolanos Referring Unavailable Marly, Victor M Primary Care Unavailable Elías Bolanos Attending Unavailable John Loyd Attending Unavailable White, Alka Referring Unavailable Elías Bolanos Attending Unavailable Beto, Gustabo H Attending Unavailable Marly, Victor M Referring Unavailable Mike Suresh Attending Unavailable KerwinMike farfan Referring Unavailable Marly, Victor M Primary Care Unavailable Marly, Victor M Attending Unavailable Marly, Victor M Referring Unavailable Marly, Victor M Primary Care Unavailable PROBLEMS PROBLEMS DATE TYPE CONDITION / CODE ATTENDING STATUS SOURCE 05/11/2018 Unknown R00.1 - Bradycardia, Gayle, Marcin Active [facility] unspecified / Community R00.1(ICD-10) Hospital Repository 05/11/2018 Unknown R94.31 - Abnormal Gayle, Marcin Active [facility] electrocardiogram Community [ECG] [EKG] / Hospital R94.31(ICD-10) Repository 01/31/2018 Unknown R14.0 - Abdominal Mike Suresh Active [facility] distension (gaseous) / Community R14.0(ICD-10) Hospital Repository 01/21/2018 Unknown I25.119 - Elías Bolanos Active [facility] Atherosclerotic heart Community disease of [place] [facility] coronary artery with Repository unspecified angina pectoris / I25.119(ICD-10) 01/21/2018 Unknown E78.5 - Elías Bolanos Active [facility] Hyperlipidemia, Community unspecified / Hospital E78.5(ICD-10) Repository 12/22/2017 Unknown E11.9 - Type 2 Victor M Luke Active [facility] diabetes mellitus Community without complications Hospital / E11.9(ICD-10) Repository 12/22/2017 Unknown I10 - Essential Victor M Luke Active [facility] (primary) hypertension Community / I10(ICD-10) Hospital Repository 12/22/2017 Unknown N18.3 - Chronic kidney Victor M Luke Active [facility] disease, stage 3 Community (moderate) / Hospital N18.3(ICD-10) Repository 12/30/2017 Unknown R07.9 - Chest pain, [place], Active [facility] unspecified / John [facility] R07.9(ICD-10) Hospital Repository 09/15/2017 Unknown J44.9 - Chronic Zen Brown, Active [facility] obstructive pulmonary D.O. Community disease, unspecified / Hospital J44.9(ICD-10) Repository 09/11/2017 Unknown Z95.5 - Presence of [place], Active [facility] coronary angioplasty [facility] implant and graft / Hospital Z95.5(ICD-10) Repository 09/11/2017 Unknown R19.7 - Diarrhea, [place], Active [facility] unspecified / Yael [facility] R19.7(ICD-10) Hospital Repository 09/14/2017 Unknown J96.21 - Acute and Hung, Merritt Active [facility] chronic respiratory Community failure with hypoxia / Hospital J96.21(ICD-10) Repository 09/14/2017 Unknown J96.22 - Acute and Hung, Merritt Active [facility] chronic respiratory Community failure with Hospital hypercapnia / Repository J96.22(ICD-10) 09/14/2017 Unknown J44.1 - Chronic Hung, Merritt Active [facility] obstructive pulmonary Community disease with (acute) Hospital exacerbation / Repository J44.1(ICD-10) 09/03/2017 Unknown R10.9 - Unspecified Victor M Luke Active [facility] abdominal pain / Community R10.9(ICD-10) Hospital Repository 09/03/2017 Unknown K92.1 - Melena / Victor M Luke Active [facility] K92.1(ICD-10) [facility] Hospital Repository 08/26/2017 Unknown R60.0 - Localized Victor M Luke Active [facility] edema / R60.0(ICD-10) [facility] Hospital Repository 09/08/2017 Unknown R06.00 - Dyspnea, [place], Active [facility] unspecified / D.O. Community R06.00(ICD-10) Hospital Repository 09/17/2017 Unknown I25.10 - [place], Active [facility] Atherosclerotic heart [facility] disease [facility] coronary artery Repository without angina pectoris / I25.10(ICD-10) 07/22/2017 Unknown I25.2 - Old myocardial Elías Bolanos Active [facility] infarction / Community I25.2(ICD-10) Hospital Repository 07/22/2017 Unknown E66.9 - Obesity, Elías Bolanos Active [facility] unspecified / Community E66.9(ICD-10) Hospital Repository 05/26/2017 Unknown R25.2 - Cramp and Victor M Luke Active [facility] spasm / R25.2(ICD-10) [facility] Hospital Repository PROCEDURES PROCEDURES No Procedure Records FoundRESULTS RESULTS 12 LEAD ELECTROCARDIOGRAM Observed: 04/15/2018 Status: F Source: [facility] 11:05 AM [facility] REPOSITORY [facility] Cardiovascular Services [address] [place] [address] 12 Lead EKG 04/13/18 0523 MR#: [id number] Acct: [id number] Name: ERIBERTO GARCIA Rep #: [id number] : 1945 72 From: Marcin Araujo MD Attending Dr: Shaan Santos DO Status: DIS EDMUND Ordering Dr: Leigha Cruz Date: 04/13/18 Location: [facility] Sex: M C Admitted: 04/12/18 Test Reason : AM EKG Blood Pressure : / mmHG Vent. Rate : 057 BPM Atrial Rate : 057 BPM P-R Int : 172 ms QRS Dur : 084 ms QT Int : 432 ms P-R-T Axes : 074 065 064 degrees QTc Int : 420 ms Sinus bradycardia Nonspecific T wave abnormality Abnormal ECG When compared with ECG of 12-APR-2018 13:16, MANUAL COMPARISON REQUIRED, DATA IS UNCONFIRMED Confirmed by MARCIN ARAUJO MD ([id number]), MARLENY Franklin ([id number]) on 04/15/2018 11:04:41 AM Referred By: HERNANDO Confirmed By:MARCIN ARAUJO MD 04/15/18 1104 Date Marcin Araujo MD CC: YRN Cruz; Shaan Santos DO; Victor M Luke DO Signed 12 LEAD ELECTROCARDIOGRAM Observed: 04/15/2018 Status: F Source: [facility] 10:16 AM [facility] REPOSITORY [facility] Cardiovascular Services [address] [place] [id number] 12 Lead EKG 04/12/18 1316 MR#: [id number] Acct: [id number] Name: ERIBERTO GARCIA Rep #: [id number] : 1945 72 From: Marcin Araujo MD Attending Dr: Shaan Santos DO Status: DIS EDMUND Ordering Dr: Elías Diego MD Date: 04/12/18 Location: [facility] Sex: M C Admitted: 04/12/18 Test Reason : CP Blood Pressure : / mmHG Vent. Rate : 051 BPM Atrial Rate : 051 BPM P-R Int : 164 ms QRS Dur : 086 ms QT Int : 440 ms P-R-T Axes : 060 063 058 degrees QTc Int : 405 ms Sinus bradycardia Otherwise normal ECG Confirmed by MARCIN ARAUJO MD ([id number]), make up editor MARLENY SIMENTAL ([id number]) on 04/15/2018 10:15:24 AM Referred By: YOUSIF/LÓPEZ Confirmed By:MARCIN ARAUJO MD 04/15/18 1015 Date Marcin Araujo MD CC: Elías Diego MD; Shaan Santos DO; Victor M Luke DO Signed DISCHARGE SUMMARY Observed: 04/13/2018 Status: F Source: [facility] 10:56 AM [facility] REPOSITORY [facility] Medical Records Department [address] [place] [address] Discharge Summary 04/13/18 1030 MR#: [id number] Acct: [id number] Name: ERIBERTO GARCIA Rep #: [id number] : 1945 72 From: Leigha Cruz NP-C PCP: Victor M Luke DO Status: ADM EDMUND Y Location: [place] [address] <Leigha Cruz - Last Filed: 04/13/18 10:48> Discharge Date and Diagnosis Date of Admission: 04/12/18 Date of Discharge: 04/13/18 - Primary Discharge Diagnosis 1. Noncardiac chest pain 2. Presyncope following anesthesia 3. Brief left facial numbness/tingling, possible TIA 4. Hypertensive urgency 5. CAD status post PCI x6, most recently August 2017 6. Hyperlipidemia 7. Chronic COPD 8. Type 2 diabetes mellitus 9. 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 stage III 10. 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 Depression/anxiety 13. GERD 14. 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 PCI-POBA-Cx and Stent-Mid RCA x 2 Multi Link Mini Vision Rx Stent 4.0 x 28 mm 01/21/2006 Type 2 diabetes mellitus without complications (Chronic) Hypertension (Chronic) Hyperlipidemia (Chronic) Old myocardial infarction (Chronic) Obesity (Chronic) History of coronary artery stent placement (Chronic 08/13/17) KPI-YKH-Ohtz 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 Electronically Signed: Constantin Lee MD at 15:07 EST Tel [phone], Service support , Chest X-Ray 04/12/18 13:32 IMPRESSION: Stable examination. Findings suggest mild scarring at the left lung base. Electronically Signed: Constantin Lee MD at 14:19 EST Tel [phone], Service support , Operations: None Procedures: None Summary of Care Provided: The patient is a 72 year old M admitted 04/12/2018 due to chest pain, left facial numbness. 1. Chest pain/Syncope- Occurred following colonoscopy. Patient reports chronic intermittent chest pain. Suspect syncope secondary to anesthesia. EKG sinus rhythm without ST-T changes. Troponin negative. Patient had echo August 2017 which showed an EF of 65%, stage I diastolic dysfunction, RVSP estimated to be 30 mmHg. Patient had recent cath December 2017 with nonobstructive coronary arteries. Chest x-ray without acute process. Cardiac etiology ruled out. 2. Left facial numbness-history of TIA, possible recurrent TIA. Facial numbness resolved quickly. CT of brain without acute infarct. NIH 0. Continue aspirin, statin, Plavix. 3. CAD status post PCI x6-follows with Dr. Bolanos. Cardiac catheterization December 2017 with widely patent LCx and RCA stents. No significant LAD disease. Continue aspirin, statin, Plavix, Imdur, metoprolol. 4. Hypertensive urgency-resolved. Continue home isosorbide, metoprolol, spironolactone, Lasix regimen. Suspect patient's blood pressure elevated due to holding home medications prior to colonoscopy. 5. Hyperlipidemia-continue statin. 6. Chronic COPD-no acute exacerbation. 7. Type 2 diabetes mellitus-continue home regimen. 8. 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 stage III-at baseline. 9. MATTHEW-continue CPAP nightly. 10. Forward tobacco use-encouraged continued cessation. 11. Depression/anxiety-continue home Effexor regimen. 12. GERD-continue PPI. 13. Obesity-encouraged diet and lifestyle modifications. General: Alert, Oriented x3, Cooperative HEENT: Atraumatic, PERRLA, EOMI, Normocephalic Neck: Supple, No JVD, Negative Carotid Bruits Lungs: Clear to auscultation, Diminished Cardiovascular: Regular rate, Regular Rhythm, Normal S1, Normal S2, No murmurs Abdomen: Bowel Sounds Present, Soft, Non Tender, Non-Distended, Obese Extremities: No clubbing, No cyanosis, No edema, Capillary Refill Less than 3 Seconds Skin: No rashes, No breakdown Musculoskeletal: No Tenderness to Palpation of Joints or Extremities Neurological: Cranial nerves II-XII grossly intact, Neuro grossly intact Psych/Mental Status: Normal Affect, Appropriate Patient seen and examined prior to discharge. Physical assessment as noted above. Patient is stable for discharge with follow up recommendations as noted above. This patient was seen by YRN Chew under the supervision of Dr. Santos. - Physical Exam Vital Signs Temp Pulse Resp BP Pulse Ox 98.0 F 52 L 18 130/89 H 96 04/13/18 08:20 18 08:20 18 08:20 04/13/18 08:20 04/13/18 08:20 Oxygen Flow Rate (L/min) 2 Oxygen Delivery Method Room Air Weight: 220 lb 0.341 oz Body Mass Index (BMI) 32.5 Finger Stick Blood Glucose 103 Intake and Output for Last 24 Hours Intake Total 300 / 300 300 / 300 Output Total 300 / 300 550 / 550 Balance 0 / 0 -250 / -250 Laboratory Tests Past 24 Hrs WBC 4.9 RBC 4.84 Hgb 14.1 Hct 43.4 MCV 89.7 MCH 29.1 MCHC 32.5 RDW 14.4 WBC RBC Hgb Hct MCV MCH MCHC RDW RDW Differential Plt Count MPV Immature Gran % (Auto) WBC RBC Hgb Hct MCV MCH MCHC RDW POC Glucose POC Glucose 127 H 112 H Discharge Diet: Low fat/ Low Cholesterol Discharge Activity: Return to Normal Activity Call your doctor if you observe: Numbness or Tingling, Shortness of breath, Dizziness, Fainting spells, Chest pain Home Medications: Medications to take at Discharge Aspirin E.C. [Ecotrin] 81 mg PO DAILY@0800 01/21/17 Pantoprazole Sodium [Protonix] 40 mg PO BID 01/21/17 Spironolactone [Aldactone] 50 mg PO DAILY 01/21/17 Venlafaxine XR [Effexor Xr] 150 mg PO DAILY 11/30/17 cholecalciferol (vitamin D3) 4,000 unit tablet 4,000 unit PO DAILY 01/19/18 nitroglycerin 0.4 mg sublingual tablet 0.4 mg SUBLINGUAL Q5- 15M PRN 01/19/18 Clopidogrel Bisulfate [Plavix] 75 mg PO DAILY 04/12/18 Cyanocobalamin [Vitamin B12] 1,000 mcg PO DAILY@0800 04/12/18 Furosemide [Lasix] 20 mg PO DAILY 04/12/18 Glimepiride [Amaryl] 1 mg PO DAILY 04/12/18 Isosorbide Mononitrate [Imdur] 60 mg PO DAILY 04/12/18 Lubiprostone [Amitiza] 8 mcg PO BID 04/12/18 Magnesium Oxide [Mag-Ox 400] 800 mg PO DAILY 04/12/18 Metoprolol Tartrate [Lopressor (beta jeffrey)] 25 mg PO BID 04/12/18 Potassium Chloride [K-Dur] 20 meq PO BID 04/12/18 Pravastatin [Pravachol] 20 mg PO QHS 04/12/18 Primary Care Physician: Victor M Luke DO [Primary Care Provider] - Please follow up with your Primary Care Physician in: 1 Week Disposition: Home Minutes spent on discharge:: 35 Patient Condition:: Stable Medical Necessity - Tobacco Use Smoking Status: Former smoker Tobacco Use: Cigarettes, Pipe Meaningful Use Info Meaningful Use Diagnoses (Choose all that apply): None applicable <Shaan Santos - Last Filed: 04/13/18 10:56> Discharge Date and Diagnosis - Secondary Discharge Diagnosis Chronic Problems (Last Reviewed 04/12/18 @ 15:39 by YRN Chew) COPD (chronic obstructive pulmonary disease) (Chronic) 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.9) (Chronic) MATTHEW (obstructive sleep apnea) (Chronic) CKD (chronic kidney disease) stage 3, GFR 30-59 ml/min (Chronic) Atherosclerotic heart disease [place] coronary artery w/angina pectoris (Chronic) [id number]-Ctmw 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 PCI-POBA-Cx and Stent-Mid RCA x 2 Multi Link Mini Vision Rx Stent 4.0 x 28 mm 01/21/2006 Type 2 diabetes mellitus without complications (Chronic) Hypertension (Chronic) Hyperlipidemia (Chronic) Old myocardial infarction (Chronic) Obesity (Chronic) History of coronary artery stent placement (Chronic 08/13/17) [id number] 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 Data reviewed. I agree with the above note by the nurse practitioner. The patient is a 72 year old M presents with chest pain and left facial numbness. Blood pressure was in the 190s. Patient was evaluated in the hospital and had no further events. Patient did undergo a left heart catheterization back in December that showed normal coronaries.. Is felt that the symptoms are probably treatable to patient just having had his colonoscopy and as well as his uncontrolled blood pressure at that time. No additional workup was necessary and patient has remained asymptomatic during the course of this hospitalization. [] - Physical Exam General: Alert, Cooperative, No apparent distress HEENT: Atraumatic, Normocephalic Psych/Mental Status: Normal Affect, Appropriate Vital Signs Temp Pulse Resp BP Pulse Ox 36.7 C 52 L 18 130/89 H 96 04/13/18 08:20 04/13/18 08:20 04/13/18 08:20 04/13/18 08:20 12/12/18 08:20 Oxygen Flow Rate (L/min) 2 Oxygen Delivery Method Room Air Weight: 99.8 kg Body Mass Index (BMI) 32.5 Finger Stick Blood Glucose 103 Intake and Output for Last 24 Hours Intake Total 300 / 300 300 / 300 Output Total 300 / 300 550 / 550 Balance 0 / 0 -250 / -250 Laboratory Tests Past 24 Hrs WBC 4.9 RBC 4.84 Hgb 14.1 Hct 43.4 MCV 89.7 MCH 29.1 MCHC 32.5 RDW 14.4 WBC RBC Hgb Hct MCV MCH MCHC RDW RDW Differential Plt Count MPV Immature Gran % (Auto) WBC RBC Hgb Hct MCV MCH MCHC RDW POC Glucose POC Glucose 127 H 112 H Discharge Diet: Low fat/ Low Cholesterol Discharge Activity: Return to Normal Activity Call your doctor if you observe: Numbness or Tingling, Shortness of breath, Dizziness, Fainting spells, Chest pain Disposition: Home Patient Condition:: Stable Meaningful Use Info Meaningful Use Diagnoses (Choose all that apply): None applicable Code Visit OBSV E AND M: 11279 Observation care discharge 04/13/18 1048 <Electronically signed by Leigha POOL> Date Leigha POOL 04/13/18 1056<Electronically signed by Shaan Santos DO> Cosigner Signature (if applicable): Date Shaan Santos DO CC: YRN Cruz; Shaan Santos DO; Victor M Luke DO Signed DISCHARGE INSTRUCTION Observed: 04/13/2018 Status: F Source: [place] 10:30 AM [facility] [place] REPOSITORY [facility] Medical Records Department [address] [place] [address] Instructions for Home/Discharge Instructions 04/13/18 1028 MR#: [id number] Acct: [id number] Name: ERIBERTO GARCIA Rep #: [id number] : 1945 72 From: Leigha POOL PCP: Victor M Luke DO Status: ADM EDMUND You will use the following diet at home:: Cardiac Discharge Activity: Return to Normal Activity Call your doctor if you observe: Numbness or Tingling, Shortness of breath, Dizziness, Fainting spells, Chest pain Allergies/Adverse Reactions: Allergies No Known Allergies Allergy (Verified 04/12/18 13:16) Medications to take at Discharge Aspirin E.C. [Ecotrin] 81 mg PO DAILY@0800 01/21/17 Pantoprazole Sodium [Protonix] 40 mg PO BID 01/21/17 Spironolactone [Aldactone] 50 mg PO DAILY 01/21/17 Venlafaxine XR [Effexor Xr] 150 mg PO DAILY 11/30/17 cholecalciferol (vitamin D3) 4,000 unit tablet 4,000 unit PO DAILY 01/19/18 nitroglycerin 0.4 mg sublingual tablet 0.4 mg SUBLINGUAL Q5- 15M PRN 01/19/18 Clopidogrel Bisulfate [Plavix] 75 mg PO DAILY 04/12/18 Cyanocobalamin [Vitamin B12] 1,000 mcg PO DAILY@0800 04/12/18 Furosemide [Lasix] 20 mg PO DAILY 04/12/18 Glimepiride [Amaryl] 1 mg PO DAILY 04/12/18 Isosorbide Mononitrate [Imdur] 60 mg PO DAILY 04/12/18 Lubiprostone [Amitiza] 8 mcg PO BID 04/12/18 Magnesium Oxide [Mag-Ox 400] 800 mg PO DAILY 04/12/18 Metoprolol Tartrate [Lopressor (beta jeffrey)] 25 mg PO BID 04/12/18 Potassium Chloride [K-Dur] 20 meq PO BID 04/12/18 Pravastatin [Pravachol] 20 mg PO QHS 04/12/18 Primary Care Physician: Victor M Luke DO [Primary Care Provider] - Please follow up with your Primary Care Physician in: 1 Week Test Results: Test results from this visit will be discussed in further detail at your follow-up appointment, if applicable. Proposed Discharge Date: 04/13/18 04/13/18 1030 <Electronically signed by Leigha POOL> Date Leigha POOL CC: Victor M Luke DO BEDSIDE GLUCOSE Collected: 04/13/2018 Status: F Source: [place] 6:48 AM [facility] REPOSITORY TYPE CODE TESTS RESULT OUT OF REFERENCE UNITS RANGE LAB L501.080 70-110 mg/dL High BEDSIDE GLU 127 Result Comment: MANAGEMENT OF PATIENT CARE PER NURSING PROTOCOL Performed By: #### L501.080 #### [facility] Point of Care [address] [place], [place] [address] LIPID PROFILE Collected: 04/13/2018 Status: F Source: [place] 5:25 AM [facility] REPOSITORY TYPE CODE TESTS RESULT OUT OF RANGE REFERENCE UNITS LAB L501.4900 200 mg/dL Normal CHOL 189 Result Comment: <200 mg/dL Desirable 200-240 mg/dL Borderline >240 mg/dL High Risk LAB L501.5000 mg/dL High TRIG 201 Result Comment: The drugs N-Acetylcysteine and Metamizole may falsely depress this assay. Serum Triglycerides Reference Interval Normal <150 mg/dL Borderline high 150 - 199 mg/dL High 200 - 499 mg/dL Very High > or = 500 mg/dL LAB L501.6400 mg/dL Low HDL 37 Result Comment: The drugs N-Acetylcysteine and Metamizole may falsely depress this assay. Reference Range HDL <40 mg/dL Low HDL Cholesterol HDL >or= 60 mg/dL High HDL Cholesterol LAB L501.6500 0-130 mg/dL Normal LDL 112 LAB L501.6600 5-40 mg/dL Normal VLDL 40 Performed By: #### L500.4100 #### [facility] [address] [place], [place], [id number] BEDSIDE GLUCOSE Collected: 04/12/2018 Status: F Source: [place] 9:14 PM [facility] REPOSITORY TYPE CODE TESTS RESULT OUT OF REFERENCE UNITS RANGE LAB L501.080 70-110 mg/dL High BEDSIDE GLU 112 Result Comment: MANAGEMENT OF PATIENT CARE PER NURSING PROTOCOL Performed By: #### L501.080 #### [facility] Point of Care [address] [place] [address] HISTORY AND PHYSICAL Observed: 04/12/2018 Status: F Source: [place] EXAM 8:54 PM [facility] REPOSITORY [facility] Medical Records Department [address] [place] [address] History and Physical 04/12/18 1529 MR#: [id number] Acct: [id number] Name: ERIBERTO GARCIA Rep #: [id number] : 1945 72 From: Leigha Cruz COST CLERK-C PCP: Victor M Luke DO Status: ADM EDMUND Y Location: [place] [address] ADDENDUM by Prema Lomas on 04/12/18 at 2053 Code Visit This patient was seen in conjunction with Leigha Cruz NP. I have independently interviewed and examined the patient and reviewed pertinent historical, laboratory and other data. Please refer to the history and physical note for details of this patient's presentation, findings and recommendations. I have reviewed Leigha's note and concur fully with documented findings. In brief, patient is a 72YO male admitted with chest pain and left facial numbness. Patient had a colonoscopy today in the surgical center and after coming out of anesthesia complained of bilateral chest pain. The janitorial assistant were summoned and he was brought to the hospital. On the way to the hospital he had a near syncopal episode. Upon arriving in the emergency room he did complain of some left facial numbness but had no focal neurologic deficits. He has had this in the past and has been diagnosed with TIAs. He had a recent cardiac catheterization in December 2017 that showed no significant areas of coronary stenosis. Physical examination: Alert and oriented x3, no apparent distress Heart-regular rate and rhythm, no gallop, normal S1, normal S2 Lungs-clear to auscultation Abdomen-soft, nontender, nondistended, normal bowel sounds present Cranial nerves II through XII are grossly intact, moving all extremities with no focal neurologic deficits Assessment: 1. Noncardiac chest pain 2. Possible TIA-symptoms resolved and CT brain shows chronic involutional changes only I have discussed my assessment with Leigha and orders have been written. OBSV E AND M: 72043 Initial observation care L3 04/12/182053 <Electronically signed by M C. 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 PCI-POBA-Cx and Stent-Mid RCA x 2 Multi Link Mini Vision Rx Stent 4.0 x 28 mm 01/21/2006 (7) Type 2 diabetes mellitus without complications Status: Chronic Qualifiers: (8) Hypertension Status: Chronic Qualifiers: (9) Hyperlipidemia Status: Chronic Qualifiers: (10) Old myocardial infarction Status: Chronic (11) Obesity Status: Chronic (12) History of coronary artery stent placement Status: Chronic Comment: BEK-ELL-Ciua 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 The patient is a 72 year old M who presents emergency room due to chest pain and left facial numbness which occurred following colonoscopy today with Dr. Winn. Patient reports after he came to following colonoscopy he developed right-sided chest pain. He states he has had chest pain in the past which was typically on the left side of his chest and this felt different from prior episodes. He denies shortness of breath, diaphoresis or other associated symptoms during episode of chest pain. He then reports the squad arrived to transport him to the emergency room and he developed a brief episode of blacking out in the squad. He also describes left facial numbness and tingling which has since resolved. He denies slurred speech, vision changes or other neurologic symptoms. Patient does report he has had episodes of chest pain off and on in the past and also a history of TIA with similar symptoms that he described today. He has a past medical history of CAD status post PCI x6, hypertension, hyperlipidemia, type 2 diabetes mellitus, anxiety, depression, COPD, obstructive sleep apnea, chronic kidney disease stage III, tobacco use. 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 PCI-POBA-Cx and Stent-Mid RCA x 2 Multi Link Mini Vision Rx Stent 4.0 x 28 mm 01/21/2006 Type 2 diabetes mellitus without complications (Chronic) Hypertension (Chronic) Hyperlipidemia (Chronic) Old myocardial infarction (Chronic) Obesity (Chronic) History of coronary artery stent placement (Chronic 08/13/17) ISF-FBN-Ijrh 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 PCI-POBA-Cx and Stent-Mid RCA x 2 Multi Link Mini Vision Rx Stent 4.0 x 28 mm 01/21/2006 Medical History: Medical History (Last Reviewed 01/21/18 @ 10:49 by Maria R Bautista) Atherosclerotic heart disease [place] coronary artery w/angina pectoris (Chronic) I25.119 NDB-EXK-Plfw 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 Psychiatric History: Anxiety, Depression Lives: Spouse/ Significant Other Smoking Status: Former smoker Alcohol: None Drugs: None - *Family History Maternal History Items: - - Denies maternal cardiac history Paternal History Items: - - Father with a history of Parkinson's disease. Review of Systems Constitutional: Denies: Chills, Fever, Weight Change HEENT: Denies: Head Aches, Sinus Congestion, Sinus Drainage Cardiovascular: Reports: Chest Pain, Syncope. Denies: Edema, Palpitations Respiratory: Denies: Cough, Shortness of breath at rest, Sputum production Gastrointestinal: Denies: Abdominal Pain, Nausea, Vomiting Genitourinary: Denies: Dysuria Musculoskeletal: Denies: Joint Pain, Joint Tenderness Skin: Denies: Rash, Wounds Neurological: Reports: - - Left facial numbness/tingling.. Denies: Balance problems, Blurred vision, Double vision, Slurred speech, Confusion, Focal weakness, Seizures Psychiatric: Reports: Anxiety, Depression. Denies: Homicidal Ideations, Suicidal Ideations Hematologic/ Lymphatic: Denies: Easy Bruising, Easy Bleeding VTE Information - Inpt Only VTE Present on Admission: No VTE Mechan Device Prophylaxis: None VTE Pharm Prophylaxis ordered?: Yes - Physical Exam General: Alert, Oriented x3, Cooperative HEENT: Atraumatic, PERRLA, EOMI, Normocephalic Neck: Supple, No JVD, Negative Carotid Bruits Lungs: Clear to auscultation, Diminished Cardiovascular: Regular rate, Regular Rhythm, Normal S1, Normal S2, No murmurs Abdomen: Bowel Sounds Present, Soft, Non Tender, Non-Distended, Obese Extremities: No clubbing, No cyanosis, No edema, Capillary Refill Less than 3 Seconds Skin: No rashes, No breakdown Musculoskeletal: No Tenderness to Palpation of Joints or Extremities Neurological: Cranial nerves II-XII grossly intact, Neuro grossly intact Psych/Mental Status: Normal Affect, Appropriate Vital Signs Temp Pulse Resp BP Pulse Ox 98.3 F 66 18 130/64 H 97 04/12/18 13:19 04/12/18 15:19 04/12/18 15:19 04/12/18 15:19 04/12/18 15:19 Oxygen Flow Rate (L/min) 2 Oxygen Delivery Method Nasal Cannula Weight: 223 lb 12.307 oz Body Mass Index (BMI) 33.0 Finger Stick Blood Glucose 103 Laboratory Tests Past 24 Hrs Assessment/Plan All Active Problems (Last Reviewed 01/21/18 @ 10:49 by Maria R Bautista) Chest pain (Acute) 1. Chest pain/Syncope- Occurred following colonoscopy today. Patient reports chronic intermittent chest pain. Suspect syncope secondary to anesthesia. EKG sinus rhythm without ST-T changes. Troponin negative x1. Trend enzymes. Patient had echo August 2017 which showed an EF of 65%, stage I diastolic dysfunction, RVSP estimated to be 30 mmHg. Repeat EKG in a.m. Obtain orthostatic vitals. Patient had recent cath December 2017 with nonobstructive coronary arteries. Chest x-ray without acute process. 2. Left facial numbness-history of TIA. Facial numbness resolved. CT of brain without acute infarct. Complete NIH Q4. Continue aspirin, statin, Plavix. 3. CAD status post PCI x6-follows with Dr. Bolanos. Cardiac catheterization December 2017 with widely patent LCx and RCA stents. No significant LAD disease. Continue aspirin, statin, Plavix, Imdur, metoprolol. 4. Hypertension-stable, continue home isosorbide, metoprolol, spironolactone, Lasix regimen. 5. Hyperlipidemia-continue statin. 6. Chronic COPD-no acute exacerbation. PRN albuterol aerosol. 7. Type 2 diabetes mellitus-hold home oral regimen. Accu- Cheks before meals at bedtime with sliding scale insulin. 8. 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 stage III-at baseline, trend BMP. 9. MATTHEW-continue CPAP nightly. 10. Forward tobacco use-encouraged continued cessation. 11. Depression/anxiety-continue home Effexor regimen. 12. GERD-continue PPI. 13. Obesity-encouraged diet and lifestyle modifications. DVT prophylaxis-lovenox sc This patient was seen by YRN Chew under the supervision of Dr. Lomas. 04/12/18 1608 <Electronically signed by Leigha POOL> Date Leigha POOL 04/12/182050<Electronically signed by Tricia Lomas DO> Cosigner Signature: Date (if applicable) Tricia Lomas DO CC: YRN Cruz; Prema Lomas; Victor M Luke DO Signed TROPONIN-I Collected: 04/12/2018 Status: F Source: [place] 4:42 PM [facility] REPOSITORY Order Comment: 'TROP' Serial specimen #1, #2 or #3: 3 TYPE CODE TESTS RESULT OUT OF RANGE REFERENCE UNITS LAB L501.4010 <0.045 ng/mL Normal < 0.015 TROPONIN-I Result Comment: TROPONIN-I EXPECTED VALUES <0.045 Negative 0.045 - 0.590 Consistent with Cardiac Damage > OR = 0.600 Critical Value Not every elevated troponin is indicative of ME. These values should be used with clinical judgement in examining the patient's clinical picture for diagnosis. To establish a diagnosis of ME versus myocardial injury, there must be a demonstrated rise and/or fall in the troponin values, in addition to ischemic symptoms, EKG changes, new regional wall motion abnormality, and/or angiographical evidence. PLEASE NOTE: REFERENCE RANGES EDITED 17 Performed By: #### L501.4010 #### [facility] [address] [place], [place], [address] MAGNESIUM Collected: 04/12/2018 Status: F Source: [place] 4:42 PM [facility] REPOSITORY Order Comment: Comments: add on to admission labs Comments: Add to admission labs TYPE CODE TESTS RESULT OUT OF RANGE REFERENCE UNITS LAB L501.5200 1.6-2.6 mg/dL Normal MG 1.8 Performed By: #### L501.5200, L501.9520 #### [facility] [address] [place], [place], [address] THYROID STIM HORMONE Collected: 04/12/2018 Status: F Source: [place] (TSH) 4:42 PM [facility] REPOSITORY Order Comment: Comments: add on to admission labs Comments: Add to admission labs TYPE CODE TESTS RESULT OUT OF RANGE REFERENCE UNITS LAB L501.9520 0.358-3.74 uIU/mL Normal TSH 2.74 Performed By: #### L501.5200, L501.9520 #### [facility] [address] [place], [address] EMERGENCY DEPARTMENT Observed: 04/12/2018 Status: F Source: [place] SUMMARY 3:36 PM [facility] REPOSITORY [facility] Medical Records Department [address] [place] [address] Emergency Department Summary 04/12/18 1348 MR#: [id number] Acct: [id number] Name: ERIBERTO GARCIA Rep #: [id number] : 1945 72 From: Elías Diego MD PCP: Victor M Luke DO Status: ADM EDMUND - ER Visit Summary Date of Service: 04/12/18 Chief Complaint: Chest pain History of Present Illness: The patient is a 72 M who presents with chest pain. The pain started after he woke up from sedation after colonoscopy. This was done at the surgical center. He was having the colonoscopy for abdominal bloating symptoms. His pain is over his left and right anterior chest. It does not radiate. He has had similar symptoms in the past and has a history of coronary disease with 6 stents. He had a catheterization in December of this year that he tells me was unremarkable. He did not receive stents then. He has been taking aspirin but has been holding his Plavix for his scope. EMS gave him aspirin. He had a brief syncopal episode in the ambulance and did not receive nitroglycerin. His pain is currently 2 out of 10. While he was being registered in the ER he started to complain of a headache and left face numbness. He has a history of TIA but no deficits. Also reports a history of diabetes, hypertension, hyperlipidemia, and COPD. He is a former smoker. No other blood thinners. Physical Examination: Blood pressure 190/96. Heart rate 57. Otherwise vitals unremarkable. Afebrile. He is alert and oriented. GCS 15. He had an NIH stroke scale of 1.4 decreased sensation to his left face. Heart regular rate and rhythm. Lungs clear. Abdomen soft and nontender. Skin appears unremarkable. Test Results: EKG shows sinus rhythm at a rate of 51. No sign of acute ischemia or infarction pattern. Laboratory studies, chest x-ray, and CT brain pending. Emergency Department Course and Treatment: Patient seen on arrival. His pain is 2 out of 10. He already was treated with aspirin. Because his pain had subsided he did not receive additional pain medicine at this point. He was placed on a monitor. Will workup for chest pain and focal numbness. His repeat blood pressure is already 173 systolic while I am in the room. We will continue to monitor as he may need blood pressure control. Chest x-ray was stable. CT brain showed chronic changes. Platelets 131, chloride 111. Troponin normal. Calcium 8.4. Repeat blood pressure in the 140s. Patient was discussed with Dr. Winn. He said that the scope was uneventful. Given the patient's history and symptoms, I spoke with the hospitalist to admit for further observation. Treatment Plan: As above Disposition: Admission Impression: 1. Chest pain 2. Left face numbness This note was generated with [employer] dictation software. It may contain incorrect words, spelling, and punctuation that were not noted in review of the chart prior to signing ED Disposition - Plan for ED Patient: Chief Complaint: Chest Pain Referrals: Victor M Luke, DO [Primary Care Provider] - What to do if you have Problems For any increased pain, shortness of breath, bleeding, nausea or vomiting, chest pain, or any unexpected problems, contact your Primary Care Provider. Call [facility] ([phone]) or report to the closest Emergency Room. Call 911 if necessary. 04/12/18 1536 <Electronically signed by Elías Diego MD> Date Elías Diego MD Cosigner Signature (If Indicated): Date CC: Victor M Luke DO CBC W/DIFF, AUTOMATED Collected: 04/12/2018 Status: F Source: [place] 1:50 PM [facility] REPOSITORY TYPE CODE TESTS RESULT OUT OF RANGE REFERENCE UNITS LAB L100.1000 4.4-11.0 K/mm3 Normal WBC 4.9 LAB L100.1200 4.6-6.2 M/mm3 Normal RBC 4.84 LAB L100.1300 13.0-16.5 g/dl Normal HGB 14.1 LAB L100.1400 40-54 % Normal HCT 43.4 LAB L100.1500 80-94 fL Normal MCV 89.7 LAB L100.1600 27.0-32.0 pg Normal MCH 29.1 LAB L100.1700 32-36 g/gl Normal MCHC 32.5 LAB L100.1810 11.6-14.6 % Normal RDW CV 14.4 LAB L100.1820 35.1-43.9 fl High RDW SD 46.9 LAB L100.1900 150-450 K/mm3 Low PLT 131 LAB L100.2000 6.2-12.0 fl High MPV 12.2 LAB L100.2100 47-70 % Normal NEUT% 63.5 LAB L100.2200 19-41 % Normal LY% 22.9 LAB L100.2300 0-10 % High MONO% 12.6 LAB L100.2400 0-5 % Normal EO% 0.4 LAB L100.2500 0-1 % Normal BASO% 0.2 LAB L100.2550 0.0-0.9 % Normal IM GRAN % 0.400 Result Comment: IG% - Immature Granulocytes (promyelocytes, myelocytes and metamyelocytes) > 1% indicates that a LEFT SHIFT is Present. LAB L100.2620 2.0-7.7 X10 3/uL Normal Absolute Neut 3.1 LAB L100.2720 0.83-4.51 X10 3/ul Normal Absolute Lymph 1.11 Performed By: #### L100.0100 #### [facility] [address] [place], [place], [id number] PROTHROMBIN TIME W/INR Collected: 04/12/2018 Status: F Source: [place] 1:50 PM [facility] REPOSITORY TYPE CODE TESTS RESULT OUT OF RANGE REFERENCE UNITS LAB L300.4150 11.7-14.9 SECONDS Normal PROTIME 14.1 LAB L300.4200 Normal INR 1.1 Performed By: #### L300.3900, L300.4310 #### [facility] [address], [place], [id number] PARTIAL THROMBOPLAST Collected: 04/12/2018 Status: F Source: [place] TIME 1:50 PM [facility] REPOSITORY TYPE CODE TESTS RESULT OUT OF RANGE REFERENCE UNITS LAB L300.4310 24.1-36.2 Seconds Normal PTT 31.3 Performed By: #### L300.3900, L300.4310 #### [facility] [address] [facility] [place], [place], [id number] BASIC METABOLIC Collected: 04/12/2018 Status: F Source: [place] PROFILE ([facility]) 1:50 PM [facility] REPOSITORY TYPE CODE TESTS RESULT OUT OF RANGE REFERENCE UNITS LAB L501.0100 74-106 mg/dL Normal GLU 103 Result Comment: Fasting Glucose result from 100 to 125 mg/dL suggests IMPAIRED HOMEOSTASIS per A.D.A. criteria. Please note revised GLUCOSE reference range effective 2017. LAB L501.1000 7-18 mg/dL Normal BUN 15 LAB L501.1100 0.70-1.30 mg/dL Normal CREAT,SERUM 1.26 Result Comment: The validity of the calculated GFR AND GFRAA in patients over 70 years has not been determined. Clinical correlation is essential. LAB L501.1110 >60 mL/min Normal EST GFR 60 Result Comment: Non- GFR Calc LAB L501.1115 >60 mL/min Normal EST GFR - AA 72 Result Comment: GFR Calc LAB L501.1255 ml/min Normal Estimated CRCL 52.99 LAB L501.1300 10-20 RATIO Normal BUN/CRE 11.9 LAB L501.2200 8.5-10 mg/dL Low .1 CA 8.4 LAB L501.5300 136-14 mmol/L Normal 5 NA 143 LAB L501.5600 3.5-5. mmol/L Normal 1 K 4.4 LAB L501.5900 98-107 mmol/L High CL 111 LAB L501.6100 21.0-3 mmol/L Normal 2.0 CO2 26.0 LAB L501.6200 5-15 Normal GAP 6 Performed By: #### L500.2500, L501.4010 #### [facility] [address] [facility] [address] [place], [place], [id number] TROPONIN-I Collected: 04/12/2018 Status: F Source: [place] 1:50 PM [facility] REPOSITORY TYPE CODE TESTS RESULT OUT OF RANGE REFERENCE UNITS LAB L501.4010 <0.045 ng/mL Normal < 0.015 TROPONIN-I Result Comment: TROPONIN-I EXPECTED VALUES <0.045 Negative 0.045 - 0.590 Consistent with Cardiac Damage > OR = 0.600 Critical Value Not every elevated troponin is indicative of ME. These values should be used with clinical judgement in examining the patient's clinical picture for diagnosis. To establish a diagnosis of ME versus myocardial injury, there must be a demonstrated rise and/or fall in the troponin values, in addition to ischemic symptoms, EKG changes, new regional wall motion abnormality, and/or angiographical evidence. PLEASE NOTE: REFERENCE RANGES EDITED 17 Performed By: #### L500.2500, L501.4010 #### [facility] [address] [facility] [place], [address] CHEST 1 VIEW Observed: 04/12/2018 Status: F Source: [place] 1:34 PM [facility] REPOSITORY [facility] Imaging Services [address] [place] [address] Chest 1 View MR#: [id number] Acct: [id number] Name: ERIBERTO GARCIA Rep #: [id number] : 1945 M 72 From: Constantin Lee MD PCP: Victor M Luke DO Status: REG ER Study: Chest 1 View Date of Exam: 04/12/18 Exam# [id number] Ordering Dr: Elías Diego MD STUDY: X-RAY CHEST REASON FOR EXAM: Male, 72 years old. Chest pain. Near syncopal episode. TECHNIQUE: Single AP portable view of the chest. COMPARISON: Comparison is made with prior study dated November 30, 2017. FINDINGS: EKG electrodes are seen. Stable increased markings in the left lung base suggestive of scarring. Stable mild elevation of the right hemidiaphragm. There is no demonstrated pleural abnormality. There is borderline cardiomegaly. Normal mediastinum and melanie. Normal visualized pulmonary arteries. There is atherosclerotic tortuosity of the aortic arch and descending thoracic aorta. There are diffuse degenerative changes of the visualized thoracic spine. Findings suggestive prior left rotator cuff surgery. Prior fusion in the lower cervical spine. There is no demonstrated abnormality of the visualized soft tissue structures of the upper abdomen. RAD/Chest 1 View IMPRESSION: Stable examination. Findings suggest mild scarring at the left lung base. Electronically Signed: Constantin Lee MD at 14:19 EST Tel [phone], Service support , CC: Elías Diego MD; Victor M Luke DO [facility] Specialist: Signed BRAIN/HEAD WITHOUT Observed: 04/12/2018 Status: F Source: [place] CONTRAST 1:34 PM [facility] REPOSITORY [facility] Imaging Services [address] [place] [address] Brain/Head without Contrast MR#: [id number] Acct: [id number] Name: ERIBERTO GARCIA Rep #: [id number] : 1945 72 From: Constantin Lee MD PCP: Victor M Luke DO Status: REG ER Study: Brain/Head without Contrast Date of Exam: 04/12/18 Exam# [id number] Ordering Dr: Elías Diego MD STUDY: CT BRAIN WITHOUT CONTRAST REASON FOR EXAM: Male, 72 years old. Headache. Near syncope. RADIATION DOSAGE (If Supplied By Facility): CTDIvol = ( 60.81 ) mGy, DLP = ( 1067.08 ) mGycm TECHNIQUE: Transaxial CT imaging of the brain was performed without administration of intravenous contrast material. Individualized dose optimization techniques were used for this CT. COMPARISON: None. FINDINGS: Normal soft tissue structures. Normal calvarium. There is mild cerebral atrophy with widening of the extra- axial spaces and ventricular dilatation. Normal white matter tracts of the cerebral hemispheres. Normal basal ganglia and thalami. Normal brainstem. Normal cerebellum. There is no intracranial hemorrhage. There are no findings of an acute ischemic infarction. Atherosclerotic calcification of the cavernous portions of the internal carotid arteries bilaterally Mild mucosal thickening of the inferior aspect of the right maxillary sinus. CT/Brain/Head without Contrast IMPRESSION: Chronic involutional changes of the brain. Electronically Signed: Constantin Lee MD at 15:07 EST Tel [phone], Service support , CC: Elías Diego MD; Victor M Luke DO Early Breastfeeding Care Specialist: Signed CREATININE FINGERSTICK Collected: 03/14/2018 Status: F Source: [place] 7:29 AM [facility] REPOSITORY TYPE CODE TESTS RESULT OUT OF RANGE REFERENCE UNITS LAB L9100.0210 0.70-1.30 mg/dL Normal CREATININE WB 1.0 LAB L9100.0220 >60 mL/min EGFR WB Normal > 60.0000 Performed By: #### L9100.0200 #### [facility] Point of Care [address] [place] [address] ABDOMEN/PELVIS WITH Observed: 03/14/2018 Status: F Source: [place] CONTRAST 7:16 AM [facility] REPOSITORY [facility] Imaging Services [address] [place] [address] Abdomen/Pelvis WITH Contrast MR#: [id number] Acct: [id number] Name: ERIBERTO GARCIA Rep #: [id number] : 1945 72 From: Constantin Lee MD PCP: Victor M Luke DO Status: REG CLI Study: Abdomen/Pelvis WITH Contrast Date of Exam: 03/14/18 Exam# [id number] Ordering Dr: Victor M Luke DO STUDY: CT ABDOMEN AND PELVIS WITH CONTRAST REASON FOR EXAM: Male, 72 years old. 2-3 month history of abdominal pain and abdominal bloating. Prior umbilical hernia repair. RADIATION DOSAGE (If Supplied By Facility): CTDIvol = ( 19.4 ) mGy, DLP = ( 1778.35 ) mGycm TECHNIQUE: Transaxial images were obtained from the dome of the diaphragm to the symphysis pubis with oral contrast. 100 ml of Isovue 300 contrast was administered. Sagittal and coronal images were reconstructed. Individualized dose optimization techniques were used for this CT. COMPARISON: Comparison is made with prior study dated September 03, 2017. FINDINGS: The visualized lung bases are unremarkable. A bipolar pacemaker is seen. There is decreased attenuation of the liver consistent with steatosis. There are surgical clips in the gallbladder fossa consistent with a prior cholecystectomy. Normal spleen. Normal pancreas. There is a small, circumscribed, smooth, low attenuation left adrenal mass, consistent with an adrenal adenoma. This measures 1.6 cm. Normal right adrenal gland. Normal right kidney. There is a 3 cm x 4.4 cm left parapelvic cyst. This is unchanged. A 1 cm cyst is also seen in the posterior aspect of the lower pole of the left kidney. Normal visualized stomach. Normal small intestine. There are multiple colonic diverticula consistent with diverticulosis. The appendix is visualized and appears normal. There is scattered atherosclerotic calcification of the abdominal aorta, without a demonstrated aneurysm. Normal inferior vena cava. Normal retroperitoneum. Normal urinary bladder. The patient is status post prostatectomy. The patient is status post ventral hernia repair. There is a stable 2.4 cm x 4.3 cm elliptical shaped fluid density deep to the anterior abdominal wall in the midline. This most likely represents a postoperative seroma. This is unchanged. There are degenerative changes of the visualized lumbar spine and both sacroiliac joints. Stable small foci of bony sclerosis in the left sacrum and right iliac bone.. CT/Abdomen/Pelvis WITH Contrast IMPRESSION: Fatty infiltration of the liver. Stable left parapelvic cyst. Stable 2.4 cm x 4.3 cm elliptical shaped fluid collection deep to the anterior abdominal wall musculature. Electronically Signed: Constantin Lee MD at 12:57 EST Tel [phone], Service support , CC: Victor M Luke DO Early Breastfeeding Care Specialist: Signed ACUTE ABDOMEN INC Observed: 01/31/2018 Status: F Source: [place] CHEST 4:13 PM [facility] REPOSITORY [facility] Imaging Services [address] [place] [address] Acute Abdomen Inc Chest MR#: [id number] Acct: [id number] Name: ERIBERTO GARCIA Rep #: [id number] : 1945 M 72 From: Joseph Kaur MD PCP: Victor M Luke DO Status: REG CLI Study: Acute Abdomen Inc Chest Date of Exam: 01/31/18 Exam# [id number] Ordering Dr: Mike Suresh MD STUDY: X-RAY - ACUTE ABDOMINAL SERIES REASON FOR EXAM: Male, 72 years old. Chest pain. Distention. TECHNIQUE: Single view of the chest. Supine, upright view(s) of the abdomen were obtained. COMPARISON: Chest x-ray dated 11/30/2017. FINDINGS: The lungs are clear. There are no pleural effusions. There is no pneumothorax. The heart is normal in size. There is no bowel obstruction. There is air and stool to the level of the rectum. There is no free air. There are surgical clips in the right upper quadrant, consistent with prior cholecystectomy. There are degenerative changes noted in the spine. RAD/Acute Abdomen Inc Chest IMPRESSION: Clear lungs. No bowel obstruction. Electronically Signed: Joseph Kaur, at 16:42 EDT Tel , Service support , CC: Victor M Luke DO; Mike Suresh MD Early Breastfeeding Care Specialist: Signed CARDIOLOGY VISIT Observed: 01/21/2018 Status: F Source: [place] REPORT 11:22 AM [facility] REPOSITORY [facility] [address] [place] [address] OFFICE VISIT Date of Service: 01/21/18 MR#: [id number] Acct: [id number] Name: ERIBERTO GARCIA Rep #: [id number] : 1945 Provider: lEías Bolanos MD Age/Sex: 72/M Location: [facility] Status: Signed HPI [facility] Chief Complaint: Routine f/u Details: ERIBERTO GARCIA, is a 72 M with a history of diabetes, hypertension, hypercholesterolemia, previous smoker who quit around 25 years ago after a 57-rhan-etdn smoking history, previous coronary artery disease status post angioplasty and stenting to his right coronary artery as early as 2005. 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 Patient has had several doctors in the past including Dr. Eller, Dr. Loyd, Dr. Velasquez at [facility]. He most previously underwent diagnostic coronary angiogram on 10/15/16 at [facility] for recurring substernal chest pain. At that time it was described as luminal irregularities of his left main of 10%, a tubular 25% proximal LAD stenosis, luminal irregularities of his first diagonal, proximal RCA, and widely patent stents. His EF was normal at that time. His most recent echocardiogram dated 09/04/16 demonstrated normal LV function and sclerotic nonstenotic aortic valve. The patient has tried Ranexa in the past which did not work, and he underwent EECP therapy which initially helped, and repeat ECP did not help his chest pain symptoms. The patient was self referred here for a second opinion, and described progressively worsening substernal chest pain, mostly at rest and with laying down but occasionally occurs after he chops wood. He describes this as a chest heaviness, similar to his previous angina, with associated shortness of breath but no diaphoresis. In addition the patient has had episodes of dizziness with getting up with blood pressure of 90/60, which have been normalized. In addition he complained of diffuse myalgias which been going on for the past several years. He is currently on Lipitor 80 mg a day. His gallbladder has been removed, and he has never been told he had a hiatal hernia. He was evaluated with PFTs several years ago but nothing recently. On 08/06/17 the patient underwent a treadmill echocardiogram which was markedly abnormal for ischemia, hypertensive blood pressure response exercise, inferolateral hypokinesis consistent with his anomalous left circumflex. Patient underwent diagnostic coronary angiogram at [facility] on 08/13/17 and underwent successful drug-eluting stent of his anomalous left circumflex off of the right coronary artery. Patient had similar chest pain symptoms during inflation and deployment of his stent. He received a 2.25X 20 Promus Synergy stent with an excellent result. His [place] right coronary artery and left coronary system were free of significant disease. Initially, he reported that his chest pain has markedly improved since her stenting was performed. His creatinine has worsened to 2.75. His PFTs dated 08/23/17 showed moderate large airway reversibility consistent with moderate COPD. Patient states he is compliant with his aspirin, Plavix, vitamin D, Imdur, magnesium, spironolactone, he was switched from Lipitor to Pravachol for his myalgias. These appear to have markedly improved. Lopressor and potassium. Patient returns with complaints of chest pain symptoms and on 12/01/17 underwent repeat catheterization at [facility] by myself, which demonstrated nonobstructive disease of his LAD, widely patent stents of his anomalous left circumflex and RCA. No additional stenting was performed. Patient is now here in follow-up. Patient continues to complain of intermittent exertional and nonexertional chest pain, sometimes radiating to his left arm. Patient was recently at the [facility] walking around in the hot weather, and developed some chest pain but also had chest pain just sitting in his chair this morning. He has had multiple visits to the emergency room, and his workup has been negative. It is unlikely he has had in-stent restenosis since his last catheterization 45 days ago. In our office today the patient's blood pressure is 160/70, pulse is 72 and regular. His physical exam is as below. He has trace bilateral lower extremity edema. His lipids as of 08/14/17 show an LDL of 100 and an HDL of 34. 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 [Ecotrin] 81 mg PO DAILY@0800 01/21/17 [History Confirmed 01/19/18] Clopidogrel Bisulfate [Clopidogrel] 75 mg PO DAILY 01/21/17 [History Confirmed 01/19/18] Cyanocobalamin (Vitamin B-12) [Vitamin B-12] 1,000 mcg PO DAILY 01/21/17 [History Confirmed 01/19/18] Magnesium Oxide [Magnesium] 800 mg PO DAILY 01/21/17 [History Confirmed 01/19/18] Pantoprazole Sodium [Protonix] 40 mg PO BID 01/21/17 [History Confirmed 01/19/18] Spironolactone [Aldactone] 50 mg PO DAILY 01/21/17 [History Confirmed 01/19/18] albuterol sulfate HFA 90 mcg/actuation aerosol inhaler 2 puff INHALATION Q6H PRN #1 device 09/15/17 [Rx Confirmed 01/19/18] umeclidinium 62.5 mcg-vilanterol 25 mcg/actuation powdr for inhalation 1 inh INHALATION Q24H #1 device 09/15/17 [Rx Confirmed 01/19/18] Glimepiride [Amaryl] 1 mg PO DAILY 11/30/17 [History Confirmed 01/19/18] Pravastatin Sodium [Pravachol] 20 mg PO QHS 11/30/17 [History Confirmed 01/19/18] Venlafaxine XR [Effexor Xr] 150 mg PO DAILY 11/30/17 [History Confirmed 01/19/18] Furosemide [Lasix] 20 mg PO DAILY tab 12/02/17 [Rx Confirmed 01/19/18] Isosorbide Mononitrate [Imdur] 60 mg PO BID tab 12/02/17 [Rx Confirmed 01/19/18] Metoprolol Tartrate [Lopressor (beta jeffrey)] 12.5 mg PO BID #60 tab 12/02/17 [Rx Confirmed 01/19/18] cholecalciferol (vitamin D3) 4,000 unit tablet 4,000 unit PO DAILY 01/19/18 [History Confirmed 01/19/18] nitroglycerin 0.4 mg sublingual tablet 0.4 mg SUBLINGUAL Q5- 15M PRN 01/19/18 [History Confirmed 01/19/18] potassium chloride ER 20 mEq tablet,extended release 60 meq PO .COMPLEX tab 01/19/18 [History Confirmed 01/19/18] ranolazine ER 500 mg tablet,extended release,12 hr 500 mg PO BID #60 tab 01/21/18 [Rx Confirmed 01/21/18] [facility] Medical History Atherosclerotic heart disease [place] coronary artery w/angina pectoris (Chronic) Type 2 diabetes mellitus without complications (Chronic) Hypertension (Chronic) Hyperlipidemia (Chronic) Old myocardial infarction (Chronic) Obesity (Chronic) 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, stage 3 (Chronic) Hoarseness (Chronic) Obstructive sleep apnea (Chronic) TIA (transient ischemic attack) (Chronic) Surgical History History of coronary artery stent placement (Chronic 08/13/17) History of herniorrhaphy (Chronic) History of prostatectomy (Chronic) History of tonsillectomy (Chronic) Hx of cholecystectomy (Chronic) Social History Smoking Status: Former smoker how long ago did patient quit smokin, 2-3p/d second hand exposure: Yes alcohol intake: never substance use type: does not use ROS Const Const: Positive for fatigue and other (Very dizzy, left side numb, chest pain (cath in October = all patent)); negative for weakness, body ache, fever(s), headache(s), chills, frequent falls, night sweats, daytime sleepiness, difficulty sleeping, excessive sweating, weight gain, weight loss, increased appetite, poor appetite or anorexia Eyes Eyes: Negative for blind spots, loss of peripheral vision, transient loss of vision, blurry vision, change in vision, double vision, floaters, tunnel vision or other ENT ENT: Positive for dizziness; negative for headache(s), hearing loss, tinnitus, Nosebleed/epistaxis, balance problems, post nasal drip, lip swelling, tongue swelling, bleeding gums, hoarseness, neck pain, dry mouth or other Cardio Chest Pain: Yes Frequency: more than once a day Character: dull, other (sometimes strong) Onset: other (spontaneous) Location: mid sternal Relieving: other (spontaneous. Nitro works but bp drops too low) Palpitations: Yes Edema: None Muscle aches with walking: None Resp Respiratory: Positive for SOB with activity; negative for SOB at rest, SOB orthopnea\SOB lying down, Coughing up blood/hemoptysis, chest congestion, pain on inspiration, snoring, stridor, wheezing, crackles, paroxysmal nocturnal dyspnea or other GI GI: Negative nausea, vomiting, heartburn, constipation, belching, bloating, cramping, vomiting blood/hematemesis, bright, red blood in stools, black,tarry stools, loose stools, Difficulty Swallowing or other : Negative for hematuria, frequent nighttime urination/ nocturia, erectile dysfunction or abnormal vaginal bleeding Musc Musc: Negative for balance problems, muscle aches/ myalgia, muscle weakness or joint pain Skin Skin: Negative redness, non-healing lesions, rash, unusual bruising, skin ulcer, wounds, jaundice or other Neuro Neuro: Positive for dizziness and lightheadedness; negative for weakness, headache(s), frequent falls, blurry vision, double vision, near syncope, syncope, orthostatic symptoms, confusion, memory loss, restless legs, vertigo, seizures, lack of coordination or other Gil Hematologic/Lymphatic: Negative for easy bleeding, easy bruising, enlarged lymph nodes or other Endo Endo: Positive for fatigue; negative for excessive sweating, cold intolerance, heat intolerance, flushing, increased thirst/drinking, increased hunger, hair loss, hair growth or other Psych Psych: Negative for anxiety, depression, thoughts of harming anyone, thoughts of harming yourself, visual hallucinations, panic attacks or audible hallucinations Allergy Allergy/Immunology: Negative for lip swelling, Negative for tongue swelling, Negative for rash, Negative for throat swelling, Negative for hives Cardiology Exam Const Appearance: cooperative, healthy appearing and no acute distress Nutritional Appearance: well nourished Orientation: alert, oriented x3 and oriented to person Head Head: normal to inspection, atraumatic and normocephalic Nose: external nose normal Face and Sinus: face symmetric Mouth: oral mucosae normal Eyes General: appearance normal, both eyes and all related structures Eyelids: eyelids normal Conjunctivae: conjunctivae normal Pupils: PERRL and normal by confrontation EOM: EOM intact bilaterally Neck Neck: normal visual inspection and full ROM Carotids: normal carotid upstroke Chest Chest inspection: normal inspection of the chest Auscultation: Bilateral: Clear to Auscultation Cardio Palpation: normal PMI Rate: regular rate Rhythm: regular rhythm Heart sounds: S1 normal and S2 normal GI GI: normal to inspection, no hepatosplenomegaly and bowel sounds present Neuro General: alert, oriented x3, awake, CN's II-XI intact bilaterally and moves all extremities Skin Skin: no rashes or lesions noted Extremities Pulses: Normal: Right Femoral Pulse, Left Femoral Pulse, Right Dorsalis Pedis Pulse, Left Dorsalis Pedis Pulse, Right Posterior Tibial Pulse, Left Posterior Tibial Pulse, Right Radial Pulse, Left Radial Pulse Lower Extremity Edema: None: Bilateral Psych Psychological: normal affect Assessment AND Plan 1. Atherosclerosis of [place] coronary artery with angina pectoris, unspecified whether [place] or transplanted heart I25.119 EPE-RNM-Axfa 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 PCI-POBA-Cx and Stent-Mid RCA x 2 Multi Link Mini Vision Rx Stent 4.0 x 28 mm 01/21/2006 Plan 1. Coronary artery disease: Patient's last catheterization on 12/01/17 demonstrated widely patent stents of his anomalous left circumflex and RCA with nonobstructive disease of his LAD. I do not believe he has macroscopic coronary artery disease significant enough to explain his chest pain however I do not doubt that he does have chest pain most likely due to microvessel disease. Patient had been previously on Ranexa but did not effectively improve his chest pain although it may have been during the time when his left circumflex was obstructed. I recommended that we restart Ranexa 500 mg p.o. twice daily to see whether or not this would assist with his anginal symptoms. His blood pressure at home runs in the 1 teens would not recommend restarting increasing his Imdur as this caused hypotension in the past. He will continue his baby aspirin, Plavix, Lasix, Imdur and metoprolol as well as spironolactone. 2. Hyperlipidemia, unspecified hyperlipidemia type E78.5 Plan 2. Hyperlipidemia: His LDL and HDL cholesterol are fairly well-controlled given his risk factors and intolerances to medicines. Continue Pravachol. 3. Return office in 6 months. This note was generated using a voice recognition system and there may be incorrect words, spelling or punctuation that were not noted when reviewing the office note prior to saving. Plan Detail Other Medications New: Follow Up +6M (Ishan) Coding Level of Care Code Off vis,est,level 3 Diagnoses Atherosclerosis of [place] coronary artery with angina pectoris, unspecified whether [place] or transplanted heart I25.119 [place] vs. transplanted heart: unspecified whether [place] or transplanted heart Hyperlipidemia, unspecified hyperlipidemia type E78.5 Hyperlipidemia type: unspecified Coding Level of Care Code Off vis,est,level 3 Diagnoses Atherosclerosis of [place] coronary artery with angina pectoris, unspecified whether [place] or transplanted heart I25.119 [place] vs. transplanted heart: unspecified whether [place] or transplanted heart Hyperlipidemia, unspecified hyperlipidemia type E78.5 Hyperlipidemia type: unspecified 01/21/18 1122 <Electronically signed by Elías Bolanos MD> Date Elías Bolanos MD Cosigner Signature: Date (if applicable) CC: Victor M Luke DO BASIC METABOLIC Collected: 12/22/2017 Status: F Source: [place] PROFILE (BMP) 11:21 AM [facility] REPOSITORY TYPE CODE TESTS RESULT OUT OF RANGE REFERENCE UNITS LAB L501.0100 74-106 mg/dL High GLU 124 Result Comment: Fasting Glucose result from 100 to 125 mg/dL suggests IMPAIRED HOMEOSTASIS per A.D.A. criteria. Please note revised GLUCOSE reference range effective 2017. LAB L501.1000 7-18 mg/dL Normal BUN 18 LAB L501.1100 0.70-1.30 mg/dL Normal CREAT,SERUM 1.29 Result Comment: The validity of the calculated GFR AND GFRAA in patients over 70 years has not been determined. Clinical correlation is essential. LAB L501.1110 >60 mL/min Low EST GFR 58 Result Comment: Non- GFR Calc LAB L501.1115 >60 mL/min Normal EST GFR - AA 70 Result Comment: GFR Calc LAB L501.1300 10-20 RATIO Normal BUN/CRE 14.0 LAB L501.2200 8.5-10.1 mg/dL CA Normal 9.1 LAB L501.5300 136-145 mmol/L NA Normal 140 LAB L501.5600 3.5-5.1 mmol/L K Normal 4.6 LAB L501.5900 98-107 mmol/L CL Normal 106 LAB L501.6100 21.0-32.0 mmol/L Normal CO2 23.0 LAB L501.6200 5-15 Normal GAP 11 Performed By: #### L500.2500 #### [facility] [address] [place], [address] HEMOGLOBIN A1C Collected: 12/22/2017 Status: F Source: [place] 11:21 AM [facility] REPOSITORY TYPE CODE TESTS RESULT OUT OF RANGE REFERENCE UNITS LAB L501.9985 4.2-6.3 % Normal HGB A1C 6.2 Performed By: #### L501.9985 #### [facility] [address] [place], [address] 12 LEAD ELECTROCARDIOGRAM Observed: 12/06/2017 Status: F Source: [place] 4:01 PM [facility] REPOSITORY [facility] Cardiovascular Services [address] [place] [address] 12 Lead EKG 11/30/172021 MR#: [id number] Acct: [id number] Name: ERIBERTO GARCIA Rep #: [id number] : 1945 72 From: John Loyd MD Attending Dr: Alex Sanon MD Status: DIS EDMUND Ordering Dr: Alka Leo Date: 11/30/17 Location: [facility] Sex: M C Admitted: 11/30/17 Test Reason : REPEAT Blood Pressure : / mmHG Vent. Rate : 061 BPM Atrial Rate : 061 BPM P-R Int : 160 ms QRS Dur : 086 ms QT Int : 396 ms P-R-T Axes : 067 054 072 degrees QTc Int : 398 ms Normal sinus rhythm Nonspecific T wave abnormality Confirmed by JOHN LOYD MD ([id number]), make up editor MARLENY SIMENTAL ([id number]) on 12/06/2017 4:01:01 PM Referred By: ALKA Confirmed By:JOHN LOYD MD 12/06/17 1605 Date John Loyd MD CC: Alka Leo; Alex Sanon MD; Victor M Luke DO Signed 12 LEAD ELECTROCARDIOGRAM Observed: 12/06/2017 Status: F Source: [place] 3:53 PM [facility] REPOSITORY [facility] Cardiovascular Services [address] [place] [address] 12 Lead EKG 12/01/17 0521 MR#: [id number] Acct: [id number] Name: ERIBERTO GARCIA Rep #: [id number] : 1945 72 From: John Loyd MD Attending Dr: Alex Sanon MD Status: DIS EDMUND Ordering Dr: Miriam Wilks MD Date: 12/01/17 Location: [facility] Sex: M C Admitted: 11/30/17 Test Reason : AM EKG Blood Pressure : / mmHG Vent. Rate : 053 BPM Atrial Rate : 053 BPM P-R Int : 182 ms QRS Dur : 084 ms QT Int : 440 ms P-R-T Axes : 063 062 089 degrees QTc Int : 412 ms Sinus bradycardia Nonspecific T wave abnormality Abnormal ECG Confirmed by RACH PALOMO, JOHN ([id number]), make up editor MARLENY SIMENTAL ([id number]) on 12/06/2017 3:53:43 PM Referred By: PAPITO Confirmed By:JOHN LOYD MD 12/06/17 1553 Date John Loyd MD CC: Alex Sanon MD; Miriam Luke DO Signed 12 LEAD ELECTROCARDIOGRAM Observed: 12/06/2017 Status: F Source: [place] 2:30 PM [facility] REPOSITORY [facility] Cardiovascular Services [address] [place] [address] 12 Lead EKG 12/01/17 1200 MR#: [id number] Acct: [id number] Name: ERIBERTO GARCIA Rep #: [id number] : 1945 72 From: John Loyd MD Attending Dr: Alex Sanon MD Status: DIS EDMUND Ordering Dr: Alka Leo Date: 12/01/17 Location: [facility] Sex: M C Admitted: 11/30/17 Test Reason : CP Blood Pressure : / mmHG Vent. Rate : 051 BPM Atrial Rate : 051 BPM P-R Int : 164 ms QRS Dur : 084 ms QT Int : 436 ms P-R-T Axes : 068 069 075 degrees QTc Int : 401 ms Sinus bradycardia Nonspecific T wave abnormality Confirmed by RACH PALOMO, JOHN ([id number]), make up editor MARLENY SIMENTAL ([id number]) on 12/06/2017 2:29:53 PM Referred By: PAPITO Confirmed By:JOHN LOYD MD 12/06/17 1429 Date John Loyd MD CC: Alka Leo; Alex Sanon MD; Victor M Luke DO Signed DISCHARGE SUMMARY Observed: 12/02/2017 Status: F Source: [place] 1:27 PM [facility] REPOSITORY [facility] Medical Records Department [address] [place] [address] Discharge Summary 12/02/17 1056 MR#: [id number] Acct: [id number] Name: ERIBERTO GARCIA Rep #: [id number] : 1945 72 From: Alex Sanon MD PCP: Victor M Luke DO Status: DIS EDMUND Y Location: [place] [id number] Discharge Date and Diagnosis Date of Admission: 11/30/17 Date of Discharge: 12/02/17 - Primary Discharge Diagnosis Active and Suspected Problems (Last Reviewed 09/15/17 @ 10:19 by Indigo Gaytan) Chest pain (Acute) - Secondary Discharge Diagnosis Chronic Problems (Last Reviewed 09/15/17 @ 10:19 by Indigo Gaytan) COPD (chronic obstructive pulmonary disease) (Chronic) 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.9) (Chronic) MATTHEW (obstructive sleep apnea) (Chronic) CKD (chronic kidney disease) stage 3, GFR 30-59 ml/min (Chronic) Atherosclerotic heart disease [place] coronary artery w/angina pectoris (Chronic) RQA-EXS-Enyv 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 PCI-POBA-Cx and Stent-Mid RCA x 2 Multi Link Mini Vision Rx Stent 4.0 x 28 mm 01/21/2006 Type 2 diabetes mellitus without complications (Chronic) Hypertension (Chronic) Hyperlipidemia (Chronic) Old myocardial infarction (Chronic) Obesity (Chronic) History of coronary artery stent placement (Chronic 08/13/17) XNK-PRM-Oulb 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 Patient was placed in a monitored bed ME was ruled out with serial cardiac enzymes cardiology subsequently consulted patient was seen by Dr. Bolanos who recommended for patient undergo heart catheterization which was performed by him on 12/02/17. Findings included patent left circumflex as well as RCA stent. Dr. Bolanos subsequently recommended adjustment of patient medication regimen which was done prior to his discharge. Discharge Activity: Return to Normal Activity Home Medications: Medications to take at Discharge Aspirin E.C. [Ecotrin] 81 mg PO DAILY@0800 01/21/17 Cholecalciferol (Vitamin D3) [Vitamin D3] 4,000 unit PO DAILY 01/21/17 Clopidogrel Bisulfate [Clopidogrel] 75 mg PO DAILY 01/21/17 Cyanocobalamin (Vitamin B-12) [Vitamin B-12] 1,000 mcg PO DAILY 01/21/17 Magnesium Oxide [Magnesium] 800 mg PO DAILY 01/21/17 Nitroglycerin [Nitrostat] 0.3 mg SL UD PRN 01/21/17 Pantoprazole Sodium [Protonix] 40 mg PO BID 01/21/17 Spironolactone [Aldactone] 50 mg PO DAILY 01/21/17 potassium chloride ER 20 mEq tablet,extended release 60 meq PO BID tab 08/30/17 albuterol sulfate HFA 90 mcg/actuation aerosol inhaler 2 puff INHALATION Q6H PRN #1 device 09/15/17 umeclidinium 62.5 mcg-vilanterol 25 mcg/actuation powdr for inhalation 1 inh INHALATION Q24H #1 device 09/15/17 Glimepiride [Amaryl] 1 mg PO DAILY 11/30/17 Pravastatin Sodium [Pravachol] 20 mg PO QHS 11/30/17 Venlafaxine XR [Effexor Xr] 150 mg PO DAILY 11/30/17 Furosemide [Lasix] 20 mg PO DAILY tablet 12/02/17 Isosorbide Mononitrate [Imdur] 60 mg PO BID tablet 12/02/17 Metoprolol Tartrate [Lopressor (beta jeffrey)] 12.5 mg PO BID #60 tab 12/02/17 Following Prescrptions Were Given to Patient: Metoprolol Tartrate [Lopressor (beta jeffrey)] 12.5 mg PO BID #60 tab Primary Care Physician: Victor M Luke DO [Primary Care Provider] - Please follow up with your Primary Care Physician in: in 5- 7 days Please Follow Up With: Elías Bolanos MD When: in 2-4 weeks Patient Instructions: ED Chest Pain NonCardiac Minutes spent on discharge:: 35 Patient Condition:: Stable Medical Necessity - Tobacco Use Smoking Status: Former smoker Tobacco Use: Non-smoker Meaningful Use Info Meaningful Use Diagnoses (Choose all that apply): None applicable Code Visit OBSV E AND M: [id number] Observation care discharge 12/02/17 1327 <Electronically signed by Alex Sanon MD> Date Alex Sanon MD Cosigner Signature (if applicable): Date CC: Alex Sanon MD; Victor M Luke DO Signed 12 LEAD ELECTROCARDIOGRAM Observed: 12/02/2017 Status: F Source: [place] 11:49 AM [facility] REPOSITORY [facility] Cardiovascular Services [address] [place] [address] 12 Lead EKG 11/30/17 1913 MR#: [id number] Acct: [id number] Name: ERIBERTO GARCIA Rep #: [id number] : 1945 72 From: John Loyd MD Attending Dr: Alex Sanon MD Status: ADM EDMUND Ordering Dr: Mesfin Patricia MD Date: 11/30/17 Location: [facility] Sex: M C Admitted: 11/30/17 Test Reason : REPEAT Blood Pressure : / mmHG Vent. Rate : 071 BPM Atrial Rate : 071 BPM P-R Int : 164 ms QRS Dur : 094 ms QT Int : 380 ms P-R-T Axes : 061 048 064 degrees QTc Int : 412 ms Normal sinus rhythm Inferior ME, age undetermined, cannot be excluded Confirmed by RACH PALOMO, JOHN ([id number]), make up editor MARLENY SIMENTAL ([id number]) on 12/02/2017 11:49:27 AM Referred By: SL Confirmed By:JOHN LOYD MD 12/02/17 114 Date John Loyd MD CC: Alex Sanon MD; Victor M Luke DO; Mesfin Patricia MD Signed 12 LEAD ELECTROCARDIOGRAM Observed: 12/02/2017 Status: F Source: [place] 11:47 AM [facility] REPOSITORY [facility] Cardiovascular Services [address] [place] [address] 12 Lead EKG 11/30/17 1754 MR#: [id number] Acct: [id number] Name: ERIBERTO GARCIA Rep #: [id number] : 1945 72 From: John Loyd MD Attending Dr: Alex Sanon MD Status: ADM EDMUND Ordering Dr: Mesfin Particia MD Date: 11/30/17 Location: [facility] Sex: M C Admitted: 11/30/17 Test Reason : CP Blood Pressure : / mmHG Vent. Rate : 091 BPM Atrial Rate : 091 BPM P-R Int : 162 ms QRS Dur : 096 ms QT Int : 352 ms P-R-T Axes : 061 058 069 degrees QTc Int : 432 ms Normal sinus rhythm Inferior ME, age undetermined, cannot be excluded Confirmed by RACH PALOMO, JOHN ([id number]), make up editor MARLENY SIMENTAL ([id number]) on 12/02/2017 11:46:53 AM Referred By: Confirmed By:JOHN LOYD MD 12/02/17 1146 Date John Loyd MD CC: Alex Sanon MD; Victor M Luke DO; Mesfin Patricia MD Signed BEDSIDE GLUCOSE Collected: 12/02/2017 Status: F Source: [place] 11:26 AM [facility] REPOSITORY TYPE CODE TESTS RESULT OUT OF REFERENCE UNITS RANGE LAB L501.080 70-110 mg/dL High BEDSIDE GLU 164 Result Comment: MANAGEMENT OF PATIENT CARE PER NURSING PROTOCOL Performed By: #### L501.080 #### [facility] Point of Care [address] [place] [address] DISCHARGE INSTRUCTION Observed: 12/02/2017 Status: F Source: [place] 10:56 AM [facility] REPOSITORY [facility] Medical Records Department [address] [place] [address] Instructions for Home/Discharge Instructions 12/02/17 1054 MR#: [id number] Acct: [id number] Name: RADHAREIBERTO D Rep #: [id number] : 1945 72 From: Alex Sanon MD PCP: Victor M Luke DO Status: ADM EDMUND - Discharge Diagnoses Current Active Problems: Current Active and Chronic Problems (Last Reviewed 09/15/17 @ 10:19 by Indigo Gaytan) Chest pain (Acute) COPD (chronic obstructive pulmonary disease) (Chronic) 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.9) (Chronic) MATTHEW (obstructive sleep apnea) (Chronic) CKD (chronic kidney disease) stage 3, GFR 30-59 ml/min (Chronic) You will use the following diet at home:: Calorie/Carbohydrate Controlled (specify 1200, 1400, etc) - 1800, Cardiac Your food should be the consistency of: Regular Discharge Activity: Return to Normal Activity Instructions: ED Chest Pain NonCardiac Allergies/Adverse Reactions: Allergies No Known Allergies Allergy (Verified 09/15/17 10:19) Medications to take at Discharge Aspirin E.C. [Ecotrin] 81 mg PO DAILY@0800 01/21/17 Cholecalciferol (Vitamin D3) [Vitamin D3] 4,000 unit PO DAILY 01/21/17 Clopidogrel Bisulfate [Clopidogrel] 75 mg PO DAILY 01/21/17 Cyanocobalamin (Vitamin B-12) [Vitamin B-12] 1,000 mcg PO DAILY 01/21/17 Magnesium Oxide [Magnesium] 800 mg PO DAILY 01/21/17 Nitroglycerin [Nitrostat] 0.3 mg SL UD PRN 01/21/17 Pantoprazole Sodium [Protonix] 40 mg PO BID 01/21/17 Spironolactone [Aldactone] 50 mg PO DAILY 01/21/17 potassium chloride ER 20 mEq tablet,extended release 60 meq PO BID tab 08/30/17 albuterol sulfate HFA 90 mcg/actuation aerosol inhaler 2 puff INHALATION Q6H PRN #1 device 09/15/17 umeclidinium 62.5 mcg-vilanterol 25 mcg/actuation powdr for inhalation 1 inh INHALATION Q24H #1 device 09/15/17 Glimepiride [Amaryl] 1 mg PO DAILY 11/30/17 Metoprolol Tartrate 50 mg PO BID 11/30/17 Pravastatin Sodium [Pravachol] 20 mg PO QHS 11/30/17 Venlafaxine XR [Effexor Xr] 150 mg PO DAILY 11/30/17 Furosemide [Lasix] 20 mg PO DAILY tablet 12/02/17 Isosorbide Mononitrate [Imdur] 60 mg PO BID tablet 12/02/17 Primary Care Physician: Victor M Luke DO [Primary Care Provider] - Please follow up with your Primary Care Physician in: in 5- 7 days Test Results: Test results from this visit will be discussed in further detail at your follow-up appointment, if applicable. Please Follow Up With: Elías Bolanos MD When: in 2-4 weeks Proposed Discharge Date: 12/02/17 12/02/17 1056 <Electronically signed by Alex Sanon MD> Date Alex Sanon MD CC: Elías Bolanos MD; Victor M Luke DO BEDSIDE GLUCOSE Collected: 12/02/2017 Status: F Source: [place] 6:45 AM [facility] REPOSITORY TYPE CODE TESTS RESULT OUT OF REFERENCE UNITS RANGE LAB L501.080 70-110 mg/dL High BEDSIDE GLU 121 Result Comment: MANAGEMENT OF PATIENT CARE PER NURSING PROTOCOL Performed By: #### L501.080 #### [facility] Point [place] [address] BASIC METABOLIC Collected: 12/02/2017 Status: F Source: [place] PROFILE (BMP) 5:50 AM [facility] REPOSITORY TYPE CODE TESTS RESULT OUT OF RANGE REFERENCE UNITS LAB L501.0100 74-106 mg/dL High GLU 123 Result Comment: Fasting Glucose result from 100 to 125 mg/dL suggests IMPAIRED HOMEOSTASIS per A.D.A. criteria. Please note revised GLUCOSE reference range effective 2017. LAB L501.1000 7-18 mg/dL Normal BUN 18 LAB L501.1100 0.70-1.30 mg/dL Normal CREAT,SERUM 1.28 Result Comment: The validity of the calculated GFR AND GFRAA in patients over 70 years has not been determined. Clinical correlation is essential. LAB L501.1110 >60 mL/min Low EST GFR 59 Result Comment: Non- GFR Calc LAB L501.1115 >60 mL/min Normal EST GFR - AA 71 Result Comment: GFR Calc LAB L501.1255 ml/min Normal Estimated CRCL 52.17 LAB L501.1300 10-20 RATIO Normal BUN/CRE 14.1 LAB L501.2200 8.5-10 mg/dL Low .1 CA 8.2 LAB L501.5300 136-14 mmol/L Normal 5 NA 141 LAB L501.5600 3.5-5. mmol/L Normal 1 K 4.5 LAB L501.5900 98-107 mmol/L High CL 109 LAB L501.6100 21.0-3 mmol/L Normal 2.0 CO2 26.0 LAB L501.6200 5-15 Normal GAP 6 Performed By: #### L500.2500 #### [facility] [address] [facility] [place], [address] BEDSIDE GLUCOSE Collected: 12/01/2017 Status: F Source: [place] 9:47 PM [facility] REPOSITORY TYPE CODE TESTS RESULT OUT OF RANGE REFERENCE UNITS LAB L501.080 70-110 mg/dL Normal BEDSIDE GLU 103 Result Comment: MANAGEMENT OF PATIENT CARE PER NURSING PROTOCOL Performed By: #### L501.080 #### [facility] Point of Care [address] [facility] [place] [address] BEDSIDE GLUCOSE Collected: 12/01/2017 Status: F Source: [place] 4:27 PM [facility] REPOSITORY TYPE CODE TESTS RESULT OUT OF RANGE REFERENCE UNITS LAB L501.080 70-110 mg/dL Normal BEDSIDE GLU 90 Result Comment: MANAGEMENT OF PATIENT CARE PER NURSING PROTOCOL Performed By: #### L501.080 #### [facility] Point of Care [address] [place] [address] STRESS TEST ECHO W/ Observed: 12/01/2017 Status: F Source: [place] CONTRAST 12:00 PM [facility] REPOSITORY [facility] Cardiovascular Services [address] [place] [address] Stress Test Echo W/Contrast MR#: [id number] Acct: [id number] Name: ERIBERTO GARCIA Rep #: [id number] : 1945 72 From: Elías Bolanos MD Primary Care: Victor M Luke DO Status: ADM EDMUND Ordering Dr: Elías Bolanos MD Sex: M C Reason For Study: CHEST PAIN Stress Results Protocol: Modified [place] Protocol Maximum Predicted HR: 148 bpm Target HR: 126 bpm% Maximum Pred icted HR: 70 % Heart Stage Duration Rate BPComm ent (mm:ss) (bpm) BASELINE 50 148/82 4 CC DEFINITY USED FOR TEST STAGE 0/1 3:00 90 150/80 STAGE 1/2 3:00 98 150/82 STAGE 1 0:18 10 4 / LIGH T HEADED,DIZZY, UNBALANCED I BLACKED OUT, I CAN'T REMEMBER ANYTHING LEFT ARM RECOVERY 70 170/11 0TINGLING/NUMB Stress Duration: 6:18 mm:ss Maximum Stress HR: 104 bpm Baseline Echocardiogram Findings The estimated ejection fraction is 65 %. Stress Echo Wall motion Data Resting WMIntermediate WMStress WM Resting Wall Motion Wall Motion Stress No regional wall motion Lateral-Basal: Mildly abnormalities noted. hypokinetic. Mid-Lateral : Mildly hypokinetic. EKG Data The baseline ECG demonstrates normal sinus rhythm with at rate of _ beats per minute. During dobutamine infusion, there were no ST or T wave changes noted to suggest ischemia. Interpretation Summary The study was technically difficult. Contrast injection was performed. The estimated ejection fraction is 65 %. Lateral-Basal: Mildly hypokinetic Mid-Lateral : Mildly hypokinetic Abnormal adequate treadmill echocardiogram. Positive for ischemia by echo criteria. Pt developed lightheadedness and left arm pain at peak exercise. Poor exercise capacity for age. Pt developed mild mid lateral/basal hypokinesis at peak exercise. HTN BP response to exercise. Final LVEF=55%. Ordering Physician: Elías Bolanos Referring Physician: Gustabo Pérez Performed By: Maida Gómez RDCS 12/01/17 9369 Date Elías Bolanos MD CC: Elías Bolanos MD; Miriam Luke DO Date Dictated: 12/01/17 0759 Date Transcribed: 12/01/17 1159 Early Breastfeeding Care Specialist: Signed BEDSIDE GLUCOSE Collected: 12/01/2017 Status: F Source: [place] 11:34 AM [facility] REPOSITORY TYPE CODE TESTS RESULT OUT OF RANGE REFERENCE UNITS LAB L501.080 70-110 mg/dL Normal BEDSIDE GLU 109 Result Comment: MANAGEMENT OF PATIENT CARE PER NURSING PROTOCOL Performed By: #### L501.080 #### [facility] Point of Care [address] [place], [place] [id number] BEDSIDE GLUCOSE Collected: 12/01/2017 Status: F Source: [place] 6:52 AM [facility] REPOSITORY TYPE CODE TESTS RESULT OUT OF RANGE REFERENCE UNITS LAB L501.080 70-110 mg/dL Normal BEDSIDE GLU 109 Result Comment: MANAGEMENT OF PATIENT CARE PER NURSING PROTOCOL Performed By: #### L501.080 #### [facility] Point of Care [address] [place], [place] [id number] CBC-COMPLETE BLOOD CNT Collected: 12/01/2017 Status: F Source: [place] NO DIFF 5:50 AM [facility] REPOSITORY TYPE CODE TESTS RESULT OUT OF RANGE REFERENCE UNITS LAB L100.1000 4.4-11.0 K/mm3 Normal WBC 6.8 LAB L100.1200 4.6-6.2 M/mm3 Normal RBC 4.90 LAB L100.1300 13.0-16.5 g/dl Normal HGB 14.3 LAB L100.1400 40-54 % Normal HCT 43.9 LAB L100.1500 80-94 fL Normal MCV 89.6 LAB L100.1600 27.0-32.0 pg Normal MCH 29.2 LAB L100.1700 32-36 g/gl Normal MCHC 32.6 LAB L100.1810 11.6-14.6 % Normal RDW CV 14.1 LAB L100.1820 35.1-43.9 fl High RDW SD 46.0 LAB L100.1900 150-450 K/mm3 Low PLT 149 LAB L100.2000 6.2-12.0 fl Normal MPV 11.8 Performed By: #### L100.0500 #### [facility] [address] [place], [address] PROTHROMBIN TIME W/INR Collected: 12/01/2017 Status: F Source: [place] 5:50 AM [facility] REPOSITORY TYPE CODE TESTS RESULT OUT OF RANGE REFERENCE UNITS LAB L300.4150 11.7-14.9 SECONDS Normal PROTIME 13.8 LAB L300.4200 Normal INR 1.1 Performed By: #### L300.3900, L300.4310 #### [facility] [address] [place], [address] PARTIAL THROMBOPLAST Collected: 12/01/2017 Status: F Source: [place] TIME 5:50 AM [facility] REPOSITORY TYPE CODE TESTS RESULT OUT OF RANGE REFERENCE UNITS LAB L300.4310 24.1-36.2 Seconds Normal PTT 32.6 Performed By: #### L300.3900, L300.4310 #### [facility] [address] [place], [address] BASIC METABOLIC Collected: 12/01/2017 Status: F Source: [place] PROFILE (BMP) 5:50 AM [facility] REPOSITORY TYPE CODE TESTS RESULT OUT OF RANGE REFERENCE UNITS LAB L501.0100 74-106 mg/dL Normal GLU 104 Result Comment: Fasting Glucose result from 100 to 125 mg/dL suggests IMPAIRED HOMEOSTASIS per A.D.A. criteria. Please note revised GLUCOSE reference range effective 2017. LAB L501.1000 7-18 mg/dL Normal BUN 16 LAB L501.1100 0.70-1.30 mg/dL Normal CREAT,SERUM 1.16 Result Comment: The validity of the calculated GFR AND GFRAA in patients over 70 years has not been determined. Clinical correlation is essential. LAB L501.1110 >60 mL/min Normal EST GFR 66 Result Comment: Non- GFR Calc LAB L501.1115 >60 mL/min Normal EST GFR - AA 80 Result Comment: GFR Calc LAB L501.1255 ml/min Normal Estimated CRCL 57.56 LAB L501.1300 10-20 RATIO Normal BUN/CRE 13.8 LAB L501.2200 8.5-10 mg/dL Low .1 CA 8.1 LAB L501.5300 136-14 mmol/L Normal 5 NA 143 LAB L501.5600 3.5-5. mmol/L Normal 1 K 4.2 LAB L501.5900 98-107 mmol/L Normal CL 106 LAB L501.6100 21.0-3 mmol/L Normal 2.0 CO2 29.0 LAB L501.6200 5-15 Normal GAP 8 Performed By: #### L500.2500, L500.4100 #### [facility] [address] [place], [place], [address] LIPID PROFILE Collected: 12/01/2017 Status: F Source: [place] 5:50 AM [facility] REPOSITORY TYPE CODE TESTS RESULT OUT OF RANGE REFERENCE UNITS LAB L501.4900 200 mg/dL Normal CHOL 180 Result Comment: <200 mg/dL Desirable 200-240 mg/dL Borderline >240 mg/dL High Risk LAB L501.5000 mg/dL High TRIG 230 Result Comment: The drugs N-Acetylcysteine and Metamizole may falsely depress this assay. Serum Triglycerides Reference Interval Normal <150 mg/dL Borderline high 150 - 199 mg/dL High 200 - 499 mg/dL Very High > or = 500 mg/dL LAB L501.6400 mg/dL Low HDL 38 Result Comment: The drugs N-Acetylcysteine and Metamizole may falsely depress this assay. Reference Range HDL <40 mg/dL Low HDL Cholesterol HDL >or= 60 mg/dL High HDL Cholesterol LAB L501.6500 0-130 mg/dL Normal LDL 96 LAB L501.6600 5-40 mg/dL High VLDL 46 Performed By: #### L500.2500, L500.4100 #### [facility] [address] [facility] [place], [place], [address] HEMOGLOBIN A1C Collected: 12/01/2017 Status: F Source: [place] 5:50 AM [facility] REPOSITORY Order Comment: Comments: ok to add on TYPE CODE TESTS RESULT OUT OF RANGE REFERENCE UNITS LAB L501.9985 4.2-6.3 % High HGB A1C 6.7 Performed By: #### L501.9985 #### [facility] [address] [place], [address] EMERGENCY DEPARTMENT Observed: 12/01/2017 Status: F Source: [place] SUMMARY 1:46 AM [facility] REPOSITORY [facility] Medical Records Department [address] [place] [address] Emergency Department Summary 11/30/17 1814 MR#: [id number] Acct: [id number] Name: ERIBERTO GARCIA Rep #: [id number] : 1945 72 From: Mesfin Patricia MD PCP: Victor M Luke DO Status: ADM EDMUND - ER Visit Summary Date of Service: 11/30/17 Chief Complaint: Chest pain History of Present Illness: The patient is a [address] Bolanos and Dr. Luke. He had a stent placed in his circumflex artery August of this year. He reports that over the past 2 weeks he has had intermittent left chest heaviness that is brought on by walking sometimes and relieved by rest sometimes. He reports that this lasts 10-15 minutes and is 4 out of 10 at worst. Is 2 out of 10 currently. Is associated with nausea, diaphoresis, and shortness of breath. There is no radiation of his pain. He reports that this is similar to the pain he had prior to his stent. Physical Examination: Vitals: Stable. Afebrile. General: Well-nourished and well-developed. Head: Normocephalic atraumatic. Neck: Supple, no lymphadenopathy. No JVD. Nontender. Cardiovascular: Regular rate and rhythm. No murmurs. Respiratory: No respiratory distress. Clear to auscultation bilaterally. Abdominal: Soft, nontender, nondistended, normal bowel sounds. No guarding, rebound, or peritoneal signs. Back: Nontender. Extremities: Nontender, no edema. Skin: Normal color, no rash. Neurologic: Alert and oriented 3. Cranial nerves II through XII are intact. Normal strength and sensation. Psych: Normal affect. Test Results: EKG is sinus at [address] changes. Is unchanged from August of this year. Repeat EKG is unchanged. CBC is normal. Chem-7 is more for creatinine 1.38 and glucose of 204. Troponin is negative. Chest x-ray shows chronic changes. Emergency Department Course and Treatment: Patient was given aspirin p.o. and is resting comfortably. Patient complained of worsening pain and had a repeat EKG was unchanged. Is given dose of morphine IV. Treatment Plan: Patient was discussed with Dr. Leo. He will be admitted to the hospital for further evaluation and treatment. Disposition: Admitted in improved condition. Impression: 1. Chest pain. 2. Chronic renal insufficiency. 3. DEXTER score of 4. This note was generated with [employer] dictation software. It may contain incorrect words, spelling, and punctuation that were not noted in review of the chart prior to signing ED Disposition - Plan for ED Patient: Chief Complaint: Chest Pain Referrals: Victor M Luke, DO [Primary Care Provider] - What to do if you have Problems For any increased pain, shortness of breath, bleeding, nausea or vomiting, chest pain, or any unexpected problems, contact your Primary Care Provider. Call [facility] ([phone]) or report to the closest Emergency Room. Call 911 if necessary. 12/01/17 0146 <Electronically signed by Mesfin Patricia MD> Date Mesfin Patricia MD Cosigner Signature (If Indicated): Date CC: Victor M Luke DO TROPONIN-I Collected: 12/01/2017 Status: F Source: [place] 12:20 AM [facility] REPOSITORY Order Comment: 'TROP' Serial specimen #1, #2 or #3: 3 TYPE CODE TESTS RESULT OUT OF RANGE REFERENCE UNITS LAB L501.4010 <0.045 ng/mL Normal < 0.015 TROPONIN-I Result Comment: TROPONIN-I EXPECTED VALUES <0.045 Negative 0.045 - 0.590 Consistent with Cardiac Damage > OR = 0.600 Critical Value Not every elevated troponin is indicative of ME. These values should be used with clinical judgement in examining the patient's clinical picture for diagnosis. To establish a diagnosis of ME versus myocardial injury, there must be a demonstrated rise and/or fall in the troponin values, in addition to ischemic symptoms, EKG changes, new regional wall motion abnormality, and/or angiographical evidence. PLEASE NOTE: REFERENCE RANGES EDITED 17 Performed By: #### L501.4010 #### [facility] [address] [place], [address] BEDSIDE GLUCOSE Collected: 11/30/2017 Status: F Source: [place] 9:42 PM [facility] REPOSITORY TYPE CODE TESTS RESULT OUT OF RANGE REFERENCE UNITS LAB L501.080 70-110 mg/dL Normal BEDSIDE GLU 106 Result Comment: MANAGEMENT OF PATIENT CARE PER NURSING PROTOCOL Performed By: #### L501.080 #### [facility] Point of Care [address] [place] [address] TROPONIN-I Collected: 11/30/2017 Status: F Source: [place] 9:06 PM [facility] REPOSITORY Order Comment: 'TROP' Serial specimen #1, #2 or #3: 2 TYPE CODE TESTS RESULT OUT OF RANGE REFERENCE UNITS LAB L501.4010 <0.045 ng/mL Normal < 0.015 TROPONIN-I Result Comment: TROPONIN-I EXPECTED VALUES <0.045 Negative 0.045 - 0.590 Consistent with Cardiac Damage > OR = 0.600 Critical Value Not every elevated troponin is indicative of ME. These values should be used with clinical judgement in examining the patient's clinical picture for diagnosis. To establish a diagnosis of ME versus myocardial injury, there must be a demonstrated rise and/or fall in the troponin values, in addition to ischemic symptoms, EKG changes, new regional wall motion abnormality, and/or angiographical evidence. PLEASE NOTE: REFERENCE RANGES EDITED 17 Performed By: #### L501.4010 #### [facility] [address] [place], [address] MAGNESIUM Collected: 11/30/2017 Status: F Source: [place] 9:06 PM [facility] REPOSITORY TYPE CODE TESTS RESULT OUT OF RANGE REFERENCE UNITS LAB L501.5200 1.6-2.6 mg/dL Normal MG 2.1 Performed By: #### L501.5200 #### [facility] [address] [place], [address] HISTORY AND PHYSICAL Observed: 11/30/2017 Status: F Source: [place] EXAM 8:02 PM [facility] REPOSITORY [facility] Medical Records Department [address] [place] [address] History and Physical 11/30/171937 MR#: [id number] Acct: [id number] Name: ERIBERTO GARCIA Rep #: [id number] : 1945 72 From: Alka Leo PCP: Victor M Luke DO Status: ADM EDMUND Y Location: [place] [address] Problem List (1) Chest pain Status: Acute Qualifiers: Chest pain type: unspecified Qualified Code(s): R07.9 - Chest pain, unspecified (2) COPD (chronic obstructive pulmonary disease) Status: Chronic Qualifiers: Emphysema type: unspecified (3) 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.9) Status: Chronic (4) MATTHEW (obstructive sleep apnea) Status: Chronic (5) 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 PCI-POBA-Cx and Stent-Mid RCA x 2 Multi Link Mini Vision Rx Stent 4.0 x 28 mm 01/21/2006 (6) Type 2 diabetes mellitus without complications Status: Chronic Qualifiers: Diabetes mellitus terminal press operator insulin use: without terminal press operator use Qualified Code(s): E11.9 - Type 2 diabetes mellitus without complications (7) Hypertension Status: Chronic Qualifiers: Hypertension type: essential hypertension Qualified Code(s): I10 - Essential (primary) hypertension (8) Hyperlipidemia Status: Chronic Qualifiers: Hyperlipidemia type: unspecified Qualified Code(s): E78.5 - Hyperlipidemia, unspecified (9) History of coronary artery stent placement Status: Chronic Comment: GQF-BGO-Cnpw 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 PCI-POBA-Cx and Stent-Mid RCA x 2 Multi Link Mini Vision Rx Stent 4.0 x 28 mm 01/21/2006 (10) CKD (chronic kidney disease) stage 3, GFR 30-59 ml/min Status: Chronic History of Present Illness Date of Admission: 11/30/17 Chief Complaint: Chest pain The patient is a 72 y/o M w/ PMHx: History of Tobacco use, COPD, Obesity, MATTHEW, CKD stage III, CAD s/p PCI x 6 w/ last intervention YZH-JYV-Slex 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, HTN, HLD, Diabetes mellitus type II, Anxiety and Depression who presents to the [facility] ED on 11/30/17 with a several month history of ongoing intermittent chest heaviness which he states is long lasting, often hours-day, intermittent, independent of activity or effort with now 2 week onset of increased 6/10 chest pressure, midsternal and mildly to the left side with associated nausea, diaphoresis and dyspnea lasting 10-15 minutes usually 6 out of 10 rating sometimes occurring with more activity and sometimes improving with rest with onset today additionally of left arm discomfort prompting his call to his agricultural education instructor, Dr. Bolanos who requested presentation to the emergency room. He had been evaluated recently outpatient per his agricultural education instructor secondary to this ongoing intermittent discomfort with planned stress testing at that time however he had as noted the new symptoms prompting ED presentation. In the ED work-up included T 99, heart rate 88, BP 132/86, respiratory rate 16, 98% room air, unremarkable CBC, BMP with BUN/creatinine 18/1.38, glucose 204, troponin less than 0.015, EKG initial and repeat with sinus rhythm with no acute evidence of ischemia, chest x-ray with chronic changes. In the emergency room patient administered morphine, aspirin, normal saline. 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 PCI-POBA-Cx and Stent-Mid RCA x 2 Multi Link Mini Vision Rx Stent 4.0 x 28 mm 01/21/2006 Type 2 diabetes mellitus without complications (Chronic) Hypertension (Chronic) Hyperlipidemia (Chronic) Old myocardial infarction (Chronic) Obesity (Chronic) History of coronary artery stent placement (Chronic 08/13/17) KCJ-BHY-Tdnd 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 PCI-POBA-Cx and Stent-Mid RCA x 2 Multi Link Mini Vision Rx Stent 4.0 x 28 mm 01/21/2006 Medical History: Medical History (Last Reviewed 09/15/17 @ 10:19 by Indigo Gaytan) Atherosclerotic heart disease [place] coronary artery w/angina pectoris (Chronic) I25.119 KZM-PDX-Lmlb 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 Psychiatric History: Anxiety, Depression Lives: Spouse/ Significant Other Smoking Status: Former smoker - Quit approximately 2024 years prior with history starting at age 21 1-2 pack per day with the last 5-10 years transition to pipe tobacco. Tobacco Use: Non-smoker Alcohol: None Drugs: None - *Family History Maternal History Items: No pertinent history Paternal History Items: - - Father with a history of Parkinson's disease. Review of Systems Constitutional: Reports: Fatigue. Denies: Chills, Fever, Weight Change HEENT: Denies: Head Aches, Sinus Congestion, Sinus Drainage Cardiovascular: Reports: Chest Pain, Chest Pressure, Chest Tightness, Heaviness. Denies: Light Headedness, Orthopnea, Palpitations, Syncope Respiratory: Reports: Shortness of Breath, Shortness of breath upon exertion. Denies: Cough, Shortness of breath at rest, Sputum production, Wheezing Gastrointestinal: Reports: Nausea. Denies: Abdominal Pain, Vomiting Genitourinary: Denies: Dysuria Musculoskeletal: Denies: Joint Pain, Joint Tenderness Skin: Denies: Rash, Wounds Neurological: Denies: Numbness, Tingling, Focal weakness Psychiatric: Reports: Anxiety, Depression. Denies: Homicidal Ideations, Suicidal Ideations Hematologic/ Lymphatic: Denies: Easy Bruising, Easy Bleeding VTE Information - Inpt Only VTE Present on Admission: No VTE Mechan Device Prophylaxis: SCD's VTE Pharm Prophylaxis ordered?: Yes Patient Problems: Active and Suspected Problems (Last Reviewed 09/15/17 @ 10:19 by Indigo Gaytan) Chest pain (Acute) Subjective: Seated upright in the ED bed, notes ongoing discomfort currently but does not appear any acute pain, notes improved since initial presentation, 4 out of 10 currently Objective: Physical Examination: General: awake, alert, oriented x 3 and cooperative, seated upright in the ED bed in no apparent distress. Skin: normal color, turgor, no icterus, cyanosis. HEENT: AT/NC, EOMI, PERRLA, MMM, no carotid bruits or JVD noted. Lungs: CTA bilaterally, moderate effort, mild decrease BL bases, no rales, ronchi or wheezing. Heart: Regular rate and rhythm; no gallop, rub audible. Abdomen: soft, obese, NTTP, ND, normal BS, no HSM. Extremities: no cyanosis, clubbing, or edema. Neurological: patient awake, alert, oriented x 3; cognitive function intact; pupils equally reactive to light and accomodation; cranial nerves II-XII grossly normal, moving all 4 extremities, no focal deficits, strength mildly globally decreased. Psychiatric: affect appears normal, no acute evidence of depressive or anxiety feelings. - Physical Exam Vital Signs Temp Pulse Resp BP Pulse Ox 99.0 F 88 16 132/86 H 98 11/30/17 17:58 11/30/17 19:22 11/30/17 19:22 11/30/17 19:22 11/30/17 19:22 Oxygen Delivery Method Room Air Weight: 220 lb 0.341 oz Body Mass Index (BMI) 32.5 Finger Stick Blood Glucose 149 Laboratory Tests Past 24 Hrs WBC 8.8 RBC 5.42 Hgb 15.9 Hct 48.0 MCV 88.6 MCH 29.3 MCHC 33.1 RDW 14.0 RDW Differential 45.7 H Assessment/Plan All Active Problems (Last Reviewed 09/15/17 @ 10:19 by Indigo Gaytan) Chest pain (Acute) The patient is a 72 y/o M w/ PMHx: History of Tobacco use, COPD, Obesity, MATTHEW, CKD stage III, CAD s/p PCI x 6 w/ last intervention ARI-DPB-Lqkm 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, HTN, HLD, Diabetes mellitus type II, Anxiety and Depression who presents to the [facility] ED on 11/30/17 with a several month history of ongoing intermittent chest heaviness which he states is long lasting, often hours-day, intermittent, independent of activity or effort with now 2 week onset of increased 6/10 chest pressure, midsternal and mildly to the left side with associated nausea, diaphoresis and dyspnea lasting 10-15 minutes usually 6 out of 10 rating sometimes occurring with more activity and sometimes improving with rest with onset today additionally of left arm discomfort prompting his call to his agricultural education instructor, Dr. Bolanos who requested presentation to the emergency room. (1) Chest Pain: T 99, heart rate 88, BP 132/86, respiratory rate 16, 98% room air, unremarkable CBC, BMP with BUN/creatinine 18/1.38, glucose 204, troponin less than 0.015, EKG initial and repeat with sinus rhythm with no acute evidence of ischemia, chest x-ray with chronic changes. Will admit to PCU, consult Cardiology per Dr. Bolanos request, place on a monitored bed to assure no acute myocardial infarction with serial cardiac enzymes and EKGs. Maintain NPO on IVFs after midnight pending their evaluation, readying for possible stress versus cardiac catheterization. ASA, NG, morphine. 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 Will continue home regimen asa, plavix, statin, BB. (3) Hypertension: Continue home regimen including Lasix, isosorbide, metoprolol, spironolactone, PRN hydralazine. (4) Hyperlipidemia: Continue home statin regimen. AM FLP. (5) Chronic COPD w/ Former Tobacco use: ATC duonebs, PRN albuterol, HOB, IS parameters. (6) Diabetes mellitus type II: Hold oral home regimen, ADA diet until NPO status, accu checks w/ ISS, nutrition consultation for education and teaching. (7) Chronic Kidney Disease Stage III: Admission BUN/Cr 18/1.38, baseline renal function appears similar, repeat BMP in AM. (8) Obesity: Weight loss and lifestyle changes encouraged, Nutrition consulted for education and teaching. (9) MATTHEW: CPAP q HS. (10) DVT Prophylaxis: SCDs, renally dosed lovenox. Code Visit OBSV E AND M: [id number] Initial observation care L3 11/30/172001 <Electronically signed by Alka Leo > Date Alka Leo Cosigner Signature: Date (if applicable) CC: Alka Leo; Victor M Luke DO Signed CHEST 1 VIEW Observed: 11/30/2017 Status: F Source: [place] (PORTABLE) 6:13 PM [facility] REPOSITORY [facility] Imaging Services [address] [place] [id number] Chest 1 View (Portable) MR#: [id number] Acct: [id number] Name: ERIBERTO GARCIA Rep #: [id number] : 1945 M 72 From: Hector Loya MD PCP: Victor M Luke DO Status: REG ER Study: Chest 1 View (Portable) Date of Exam: 11/30/17 Exam# [id number] Ordering Dr: Mesfin Patricia MD STUDY: X-RAY CHEST REASON FOR EXAM: Male, 72 years old. Heaviness in the chest. Chest pain. COPD. TECHNIQUE: Frontal and lateral views of the chest. COMPARISON: 08/27/2017, 01/20/2017 FINDINGS: The lungs are clear and expanded. Stable bilateral pleural plaques along the lateral chest ruelas. Normal size heart. Normal mediastinum and melanie. Normal visualized pulmonary arteries. There is atherosclerotic tortuosity of the aortic arch and descending thoracic aorta. Normal visualized thoracic spine. Previous cervical spine surgery. Previous left shoulder surgery. There is no demonstrated abnormality of the visualized soft tissue structures of the upper abdomen. RAD/Chest 1 View (Portable) IMPRESSION: No change or definite acute chest disease. Stable rather prominent bilateral pleural plaques. Electronically Signed: Hector Loya MD at 18:48 EDT , Service support , CC: Victor M Luke ; Mesfin Patricia MD Early Breastfeeding Care Specialist: Signed CBC W/DIFF, AUTOMATED Collected: 11/30/2017 Status: F Source: [place] 6:00 PM [facility] REPOSITORY TYPE CODE TESTS RESULT OUT OF RANGE REFERENCE UNITS LAB L100.1000 4.4-11.0 K/mm3 Normal WBC 8.8 LAB L100.1200 4.6-6.2 M/mm3 Normal RBC 5.42 LAB L100.1300 13.0-16.5 g/dl Normal HGB 15.9 LAB L100.1400 40-54 % Normal HCT 48.0 LAB L100.1500 80-94 fL Normal MCV 88.6 LAB L100.1600 27.0-32.0 pg Normal MCH 29.3 LAB L100.1700 32-36 g/gl Normal MCHC 33.1 LAB L100.1810 11.6-14.6 % Normal RDW CV 14.0 LAB L100.1820 35.1-43.9 fl High RDW SD 45.7 LAB L100.1900 150-450 K/mm3 Normal PLT 164 LAB L100.2000 6.2-12.0 fl Normal MPV 11.9 LAB L100.2100 47-70 % Normal NEUT% 65.4 LAB L100.2200 19-41 % Normal LY% 23.6 LAB L100.2300 0-10 % Normal MONO% 9.4 LAB L100.2400 0-5 % Normal EO% 0.8 LAB L100.2500 0-1 % Normal BASO% 0.3 LAB L100.2550 0.0-0.9 % Normal IM GRAN % 0.500 Result Comment: IG% - Immature Granulocytes (promyelocytes, myelocytes and metamyelocytes) > 1% indicates that a LEFT SHIFT is Present. LAB L100.2620 2.0-7.7 X10 3/uL Normal Absolute Neut 5.8 LAB L100.2720 0.83-4.51 X10 3/ul Normal Absolute Lymph 2.08 Performed By: #### L100.0100 #### [facility] [address] [place], [address] BASIC METABOLIC Collected: 11/30/2017 Status: F Source: [place] PROFILE (BMP) 6:00 PM [facility] REPOSITORY TYPE CODE TESTS RESULT OUT OF RANGE REFERENCE UNITS LAB L501.0100 74-106 mg/dL High GLU 204 Result Comment: Glucose result greater than or equal to 200 mg/dL suggests DIABETES MELLITUS per A.D.A. criteria. Please note revised GLUCOSE reference range effective 2017. LAB L501.1000 7-18 mg/dL Normal BUN 18 LAB L501.1100 0.70-1.30 mg/dL High CREAT,SERUM 1.38 Result Comment: The validity of the calculated GFR AND GFRAA in patients over 70 years has not been determined. Clinical correlation is essential. LAB L501.1110 >60 mL/min Low EST GFR 54 Result Comment: Non- GFR Calc LAB L501.1115 >60 mL/min Normal EST GFR - AA 65 Result Comment: GFR Calc LAB L501.1255 ml/min Normal Estimated CRCL 48.39 LAB L501.1300 10-20 RATIO Normal BUN/CRE 13.0 LAB L501.2200 8.5-10 mg/dL Normal .1 CA 9.0 LAB L501.5300 136-14 mmol/L Normal 5 NA 137 LAB L501.5600 3.5-5. mmol/L Normal 1 K 3.8 LAB L501.5900 98-107 mmol/L Normal CL 102 LAB L501.6100 21.0-3 mmol/L Normal 2.0 CO2 29.0 LAB L501.6200 5-15 Normal GAP 6 Performed By: #### L500.2500, L501.4010 #### [facility] [address] [place], [address] TROPONIN-I Collected: 11/30/2017 Status: F Source: [place] 6:00 PM [facility] REPOSITORY TYPE CODE TESTS RESULT OUT OF RANGE REFERENCE UNITS LAB L501.4010 <0.045 ng/mL Normal < 0.015 TROPONIN-I Result Comment: TROPONIN-I EXPECTED VALUES <0.045 Negative 0.045 - 0.590 Consistent with Cardiac Damage > OR = 0.600 Critical Value Not every elevated troponin is indicative of ME. These values should be used with clinical judgement in examining the patient's clinical picture for diagnosis. To establish a diagnosis of ME versus myocardial injury, there must be a demonstrated rise and/or fall in the troponin values, in addition to ischemic symptoms, EKG changes, new regional wall motion abnormality, and/or angiographical evidence. PLEASE NOTE: REFERENCE RANGES EDITED 17 Performed By: #### L500.2500, L501.4010 #### [facility] [address] [place], [address] CBC W/DIFF, AUTOMATED Collected: 11/15/2017 Status: F Source: [place] 2:58 PM [facility] REPOSITORY TYPE CODE TESTS RESULT OUT OF RANGE REFERENCE UNITS LAB L100.1000 4.4-11.0 K/mm3 Normal WBC 9.4 LAB L100.1200 4.6-6.2 M/mm3 Normal RBC 5.58 LAB L100.1300 13.0-16.5 g/dl Normal HGB 15.9 LAB L100.1400 40-54 % Normal HCT 49.1 LAB L100.1500 80-94 fL Normal MCV 88.0 LAB L100.1600 27.0-32.0 pg Normal MCH 28.5 LAB L100.1700 32-36 g/gl Normal MCHC 32.4 LAB L100.1810 11.6-14.6 % Normal RDW CV 14.1 LAB L100.1820 35.1-43.9 fl High RDW SD 45.7 LAB L100.1900 150-450 K/mm3 Normal PLT 213 LAB L100.2000 6.2-12.0 fl High MPV 12.3 LAB L100.2100 47-70 % Normal NEUT% 65.9 LAB L100.2200 19-41 % Normal LY% 20.7 LAB L100.2300 0-10 % High MONO% 12.0 LAB L100.2400 0-5 % Normal EO% 0.8 LAB L100.2500 0-1 % Normal BASO% 0.2 LAB L100.2550 0.0-0.9 % Normal IM GRAN % 0.400 Result Comment: IG% - Immature Granulocytes (promyelocytes, myelocytes and metamyelocytes) > 1% indicates that a LEFT SHIFT is Present. LAB L100.2620 2.0-7.7 X10 3/uL Normal Absolute Neut 6.2 LAB L100.2720 0.83-4.51 X10 3/ul Normal Absolute Lymph 1.95 Performed By: #### L100.0100 #### [facility] [address] [place], [place], [address] BASIC METABOLIC Collected: 11/15/2017 Status: F Source: [place] PROFILE (BMP) 2:58 PM [facility] REPOSITORY Order Comment: 'TROP' Serial specimen #1, #2, #3, or #4: 1 TYPE CODE TESTS RESULT OUT OF RANGE REFERENCE UNITS LAB L501.0100 74-106 mg/dL Normal GLU 86 Result Comment: Please note revised GLUCOSE reference range effective 2017. LAB L501.1000 7-18 mg/dL High BUN 19 LAB L501.1100 0.70-1.30 mg/dL High CREAT,SERUM 1.46 Result Comment: The validity of the calculated GFR AND GFRAA in patients over 70 years has not been determined. Clinical correlation is essential. LAB L501.1110 >60 mL/min Low EST GFR 50 Result Comment: Non- GFR Calc LAB L501.1115 >60 mL/min Normal EST GFR - AA 61 Result Comment: GFR Calc LAB L501.1300 10-20 RATIO Normal BUN/CRE 13.0 LAB L501.2200 8.5-10.1 mg/dL CA Normal 9.2 LAB L501.5300 136-145 mmol/L NA Normal 141 LAB L501.5600 3.5-5.1 mmol/L K Normal 3.9 LAB L501.5900 98-107 mmol/L CL Normal 102 LAB L501.6100 21.0-32.0 mmol/L Normal CO2 28.0 LAB L501.6200 5-15 Normal GAP 11 Performed By: #### L500.2500, L501.3620, L501.4010, L501.9520 #### [facility] [address] [place], [place], [address] CPK TOTAL, CREATINE Collected: 11/15/2017 Status: F Source: [place] 2:58 PM [facility] REPOSITORY Order Comment: 'TROP' Serial specimen #1, #2, #3, or #4: 1 TYPE CODE TESTS RESULT OUT OF RANGE REFERENCE UNITS LAB L501.3620 39-308 U/L Normal CPK TOTAL 53 Performed By: #### L500.2500, L501.3620, L501.4010, L501.9520 #### [facility] [address] [place], [address] TROPONIN-I Collected: 11/15/2017 Status: F Source: [place] 2:58 PM [facility] REPOSITORY Order Comment: 'TROP' Serial specimen #1, #2, #3, or #4: 1 TYPE CODE TESTS RESULT OUT OF RANGE REFERENCE UNITS LAB L501.4010 <0.045 ng/mL Normal < 0.015 TROPONIN-I Result Comment: TROPONIN-I EXPECTED VALUES <0.045 Negative 0.045 - 0.590 Consistent with Cardiac Damage > OR = 0.600 Critical Value Not every elevated troponin is indicative of ME. These values should be used with clinical judgement in examining the patient's clinical picture for diagnosis. To establish a diagnosis of ME versus myocardial injury, there must be a demonstrated rise and/or fall in the troponin values, in addition to ischemic symptoms, EKG changes, new regional wall motion abnormality, and/or angiographical evidence. PLEASE NOTE: REFERENCE RANGES EDITED 17 Performed By: #### L500.2500, L501.3620, L501.4010, L501.9520 #### [facility] [address] [place], [address] THYROID STIM HORMONE Collected: 11/15/2017 Status: F Source: [place] (TSH) 2:58 PM [facility] REPOSITORY Order Comment: 'TROP' Serial specimen #1, #2, #3, or #4: 1 TYPE CODE TESTS RESULT OUT OF RANGE REFERENCE UNITS LAB L501.9520 0.358-3.74 uIU/mL Normal TSH 3.38 Performed By: #### L500.2500, L501.3620, L501.4010, L501.9520 #### [facility] [address] [place], [address] BASIC METABOLIC Collected: 11/12/2017 Status: F Source: [place] PROFILE (BMP) 11:47 AM [facility] REPOSITORY TYPE CODE TESTS RESULT OUT OF RANGE REFERENCE UNITS LAB L501.0100 74-106 mg/dL High GLU 162 Result Comment: Fasting Glucose result greater than or equal to 126 mg/dL suggests DIABETES MELLITUS per A.D.A. criteria. Please note revised GLUCOSE reference range effective 2017. LAB L501.1000 7-18 mg/dL Normal BUN 15 LAB L501.1100 0.70-1.30 mg/dL High CREAT,SERUM 1.35 Result Comment: The validity of the calculated GFR AND GFRAA in patients over 70 years has not been determined. Clinical correlation is essential. LAB L501.1110 >60 mL/min Low EST GFR 55 Result Comment: Non- GFR Calc LAB L501.1115 >60 mL/min Normal EST GFR - AA 67 Result Comment: GFR Calc LAB L501.1300 10-20 RATIO Normal BUN/CRE 11.1 LAB L501.2200 8.5-10.1 mg/dL CA Normal 8.7 LAB L501.5300 136-145 mmol/L NA Normal 141 LAB L501.5600 3.5-5.1 mmol/L K Normal 4.7 LAB L501.5900 98-107 mmol/L CL Normal 106 LAB L501.6100 21.0-32.0 mmol/L Normal CO2 25.0 LAB L501.6200 5-15 Normal GAP 10 Performed By: #### L500.2500 #### [facility] [address] [place], [address] HEMOGLOBIN A1C Collected: 11/12/2017 Status: F Source: [place] 11:47 AM [facility] REPOSITORY TYPE CODE TESTS RESULT OUT OF RANGE REFERENCE UNITS LAB L501.9985 4.2-6.3 % High HGB A1C 6.7 Performed By: #### L501.9985 #### [facility] [address] [place], [address] BASIC METABOLIC Collected: 09/21/2017 Status: F Source: [place] PROFILE (BMP) 9:35 AM [facility] REPOSITORY TYPE CODE TESTS RESULT OUT OF RANGE REFERENCE UNITS LAB L501.0100 74-106 mg/dL High GLU 194 Result Comment: Fasting Glucose result greater than or equal to 126 mg/dL suggests DIABETES MELLITUS per A.D.A. criteria. Please note revised GLUCOSE reference range effective 2017. LAB L501.1000 7-18 mg/dL Normal BUN 16 LAB L501.1100 0.70-1.30 mg/dL High CREAT,SERUM 1.32 Result Comment: The validity of the calculated GFR AND GFRAA in patients over 70 years has not been determined. Clinical correlation is essential. LAB L501.1110 >60 mL/min Low EST GFR 57 Result Comment: Non- GFR Calc LAB L501.1115 >60 mL/min Normal EST GFR - AA 69 Result Comment: GFR Calc LAB L501.1300 10-20 RATIO Normal BUN/CRE 12.1 LAB L501.2200 8.5-10.1 mg/dL CA Normal 8.5 LAB L501.5300 136-145 mmol/L NA Normal 138 LAB L501.5600 3.5-5.1 mmol/L K Normal 4.5 LAB L501.5900 98-107 mmol/L High CL 108 LAB L501.6100 21.0-32.0 mmol/L Normal CO2 26.0 LAB L501.6200 5-15 Low GAP 4 Performed By: #### L500.2500 #### [facility] [address] [place], [place], [address] PULMONARY VISIT REPORT Observed: 09/15/2017 Status: F Source: [place] 11:13 AM [facility] REPOSITORY [facility] [address] [place] [address] OFFICE VISIT Date of Service: 09/15/17 MR#: [id number] Acct: [id number] Name: EDUAR GARCIAHIRAM Hooker Rep #: [id number] : 1945 Provider: Zen East D.O. Age/Sex: 72/M [place] [facility] [place] Status: Signed Assessment AND Plan 1. Chronic obstructive pulmonary disease J44.9 Plan The patient did have evidence of a moderate obstructive ventilatory impairment noted on his most recent PFTs. He is not currently on any inhalers at his baseline. I have recommended that he be placed on Anoro and as needed albuterol. In addition, the patient will be sent to undergo a 6 minute walk test to assess for any exertional hypoxia. Samples were provided to the patient today. Inhaler technique was reviewed. The patient will follow up with our nurse practitioner in 1 month to assess his symptom response to therapy. Orders Orders: 2. 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 3. Tobacco dependence in remission F17.201 Plan Ongoing tobacco cessation strongly encouraged. Plan Detail Other Medications New: albuterol sulfate HFA 90 mcg/actuation adm2 puffs Inhalation Q6H PRN shortness of devi inister with spacer th or wheezing Follow Up 1 Month (CSM) HPI HPI Comments Details: The patient is a 72-year-old male who presents to the clinic today in referral for evaluation of COPD. The patient has a known history of coronary artery disease for which he is status post angioplasty and stenting to his right coronary artery in 2005. In August, the patient underwent successful coronary angiogram with drug-eluting stent placement of his left circumflex. The patient has a smoking history of 45 pack years having quit completely 25 years ago. Pulmonary function testing was completed in August 2017 revealed evidence of a partially reversible moderate large airways obstructive ventilatory defect. 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 He has lived in [place] his entire life. He did not grow up in a smoking household. He reports the presence of dyspnea with strenuous physical exertion. He also experiences an intermittent cough with a mild degree of associated wheezing. He denies chest tightness. His weight has been stable. He does not currently utilize any inhalers at his baseline. The patient denies fevers, chills or night sweats. He reports no chest pain, dizziness or lightheadedness. Intake Vital Signs09/15/17 Height 5 ft 9 in 09/15/17 Weight: 210 lb Intake Visit Reasons: COPD Chief Complaint: Routine f/u Accompanied by: Self Allergies No Known Allergies Allergy (Verified 09/15/17 10:19) Medications Aspirin E.C. [Ecotrin] 81 mg PO DAILY@0800 01/21/17 [History Confirmed 09/07/17] Cholecalciferol (Vitamin D3) [Vitamin D3] 2,000 unit PO DAILY 01/21/17 [History Confirmed 09/07/17] Clopidogrel Bisulfate [Clopidogrel] 75 mg PO DAILY 01/21/17 [History Confirmed 09/07/17] Cyanocobalamin (Vitamin B-12) [Vitamin B-12] 1,000 mcg PO DAILY 01/21/17 [History Confirmed 09/07/17] Isosorbide Mononitrate [Imdur] 120 mg PO DAILY 01/21/17 [History Confirmed 09/07/17] Magnesium Oxide [Magnesium] 800 mg PO DAILY 01/21/17 [History Confirmed 09/07/17] Nitroglycerin [Nitrostat] 0.3 mg SL UD PRN 01/21/17 [History Confirmed 09/07/17] Pantoprazole Sodium [Protonix] 40 mg PO BID 01/21/17 [History Confirmed 09/07/17] Spironolactone [Aldactone] 50 mg PO DAILY 01/21/17 [History Confirmed 09/07/17] metoprolol tartrate 50 mg tablet 50 mg PO BID #180 tab 08/17/17 [Rx Confirmed 09/07/17] pravastatin 20 mg tablet 20 mg PO QHS #90 tab 08/17/17 [Rx Confirmed 09/07/17] potassium chloride ER 20 mEq tablet,extended release 60 meq PO BID tab 08/30/17 [History Confirmed 09/07/17] Venlafaxine HCl [Effexor] 75 mg PO DAILY 09/03/17 [History Confirmed 09/07/17] furosemide 80 mg tablet 40 mg PO DAILY tab 09/03/17 [History Confirmed 09/07/17] albuterol sulfate HFA 90 mcg/actuation aerosol inhaler 2 puff INHALATION Q6H PRN #1 device 09/15/17 [Rx Confirmed 09/15/17] umeclidinium 62.5 mcg-vilanterol 25 mcg/actuation powdr for inhalation 1 inh INHALATION Q24H #1 device 09/15/17 [Rx Confirmed 09/15/17] PFS Medical History Atherosclerotic heart disease [place] coronary artery w/angina pectoris (Chronic) Type 2 diabetes mellitus without complications (Chronic) Hypertension (Chronic) Hyperlipidemia (Chronic) Old myocardial infarction (Chronic) Obesity (Chronic) 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, stage 3 (Chronic) Hoarseness (Chronic) Obstructive sleep apnea (Chronic) TIA (transient ischemic attack) (Chronic) Surgical History History of coronary artery stent placement (Chronic 08/13/17) History of herniorrhaphy (Chronic) History of prostatectomy (Chronic) History of tonsillectomy (Chronic) Hx of cholecystectomy (Chronic) Social History Smoking Status: Former smoker how long ago did patient quit smokin, 2-3p/d second hand exposure: Yes alcohol intake: never substance use type: does not use Review of Systems Const CONSTITUTIONAL: Positive fatigue; negative anorexia, body ache, chills, daytime sleepiness, fever(s), night sweats, oral thrush, stops breathing during sleep, weight loss, sleeping in chair, weight loss, weight gain, frequent colds, seasonal allergies, other, headache(s) or orthopnea EETM Ear Nose Throat Mouth: Positive hearing normal; negative hard of hearing, hoarseness, dry mouth in morning, change in vision, itchy eyes, eye pain, swallowing Difficulty, ear pain, nose bleed, headache(s), mouth pain, nasal congestion, nasal discharge, post nasal drip, sinus pain, sinus pressure, sore throat or other Cardio Cardiovascular: Positive chest pain; negative chest pain at rest, chest pain with activity, irregular heart rhythm, edema, shortness of breath when lying down, palpitations, murmur or other Resp Respiratory: Positive as per HPI, shortness of breath shortness of breath: Positive with activity and worsening, wheezing and cough cough: Positive non-productive; negative pain with cough, chest congestion, chest tightness, pain on inspiration, inhalers, increase use of rescue inhalers, snoring, apnea or other Gastro Gastrointestional: Negative bloody stools, change in appetite, difficulty swallowing, reflux, hematemesis, melena stool, loose stool, constipation or other Genitourinary: Negative blood in urine, nocturia, pain with urination or other Musc Musculoskeletal: Negative body pain, back pain, neck pain or other Skin/Breast Skin/Breast: Negative dry skin, itching, rash, unusual bruising, breast lump or other Neuro Neurological: Negative restless legs, confusion, weakness or other Psych Psychocological: Negative abnormal sleep pattern, anxiety, thoughts of hurting self/others, hopelessness or other Lymph Lymphatic: Negative easy bleeding, easy bruising, swollen lymph nodes or other Exam Const Constitutional: Positive conversant, cooperative, in no acute respiratory distress, well developed, well nourished and good hygiene Head Head: Positive normocephalic and atraumatic; negative cyanosis of lips/distal nose Eyes Eye: Positive clear conjunctiva; negative nystagmus or scleral abnormality Ears Ear: Positive hearing normal and external ears normal; negative hard of hearing Nose Nose: Positive external nose normal; negative epistaxis Mouth Mouth: Positive oral mucosae normal and posterior oropharynx is adequate; negative no lesions or post nasal drip Mallampati Score: II: Mallampati Score Neck Neck: Positive normal visual inspection and trachea midline; negative lymphadenopathy Chest Wall Chest: Positive symmetric chest movement Normal AP diameter. Resp lung sounds: Positive diminished diminished: Positive bialteral and normal expiratory time; negative wheezes, rhonchi or rales Cardio Cardiac: Positive regular rate, regular rhythm, S1 normal and S2 normal; negative rub, gallop or murmur GI GI: Positive normal bowel sounds Soft without distention Genitourinary: Positive deferred Musc Musculoskeletal: Positive steady gait Skin Pulmonary Skin Exam: Positive intact; negative lesion, ulcers, dermal atrophy or rash Pulses Pulse: Yes Pedal pulses present: Extremities Extremities: No clubbing, No cyanosis, No edema Neuro Neurologic: Yes conversant, Yes no focal neuro deficits, Yes cooperative Lymph Lymphatic: No lymphadenopathy Psych Appearance: Positive grossly normal Mental Status: Positive mental status grossly normal Mood: Positive congruent mood Affect: Positive normal affect Coding Level of Care Code Off vis,new,level 4 Diagnoses Chronic obstructive pulmonary disease J44.9 History of coronary artery stent placement Z95.5 Tobacco dependence in remission F17.201 09/15/17 1113 <Electronically signed by Zen East DO> Date Zen East DO Susanignjason Signature: Date (if applicable) CC: Victor M Luke DO SURGERY VISIT REPORT Observed: 09/07/2017 Status: F Source: [place] 1:45 PM [facility] REPOSITORY [facility] [address] [place] [address] OFFICE VISIT Date of Service: 09/07/17 MR#: [id number] Acct: [id number] Name: ERIBERTO GARCIA Rep #: [id number] : 1945 Provider: Yael Yang MD Age/Sex: 72/M Location: [facility] Status: Signed Intake Vital Signs09/07/17 Height 5 ft 9 in 09/07/17 Weight: 211 lb 9 oz 09/07/17 Body Mass Index (BMI) 31.2 09/07/17 Blood Pressure 158/88 Intake Visit Reasons: bloating, diarrhea, constipation Chief Complaint: bloating/ diarrhea Carpenter Prototype Required: No Is patient in pain?: No Allergies No Known Allergies Allergy (Verified 09/07/17 13:15) Medications Aspirin E.C. [Ecotrin] 81 mg PO DAILY@0800 01/21/17 [History Confirmed 09/07/17] Cholecalciferol (Vitamin D3) [Vitamin D3] 2,000 unit PO DAILY 01/21/17 [History Confirmed 09/07/17] Clopidogrel Bisulfate [Clopidogrel] 75 mg PO DAILY 01/21/17 [History Confirmed 09/07/17] Cyanocobalamin (Vitamin B-12) [Vitamin B-12] 1,000 mcg PO DAILY 01/21/17 [History Confirmed 09/07/17] Isosorbide Mononitrate [Imdur] 120 mg PO DAILY 01/21/17 [History Confirmed 09/07/17] Magnesium Oxide [Magnesium] 800 mg PO DAILY 01/21/17 [History Confirmed 09/07/17] Nitroglycerin [Nitrostat] 0.3 mg SL UD PRN 01/21/17 [History Confirmed 09/07/17] Pantoprazole Sodium [Protonix] 40 mg PO BID 01/21/17 [History Confirmed 09/07/17] Spironolactone [Aldactone] 50 mg PO DAILY 01/21/17 [History Confirmed 09/07/17] metoprolol tartrate 50 mg tablet 50 mg PO BID #180 tab 08/17/17 [Rx Confirmed 09/07/17] pravastatin 20 mg tablet 20 mg PO QHS #90 tab 08/17/17 [Rx Confirmed 09/07/17] potassium chloride ER 20 mEq tablet,extended release 60 meq PO BID tab 08/30/17 [History Confirmed 09/07/17] Venlafaxine HCl [Effexor] 75 mg PO DAILY 09/03/17 [History Confirmed 09/07/17] furosemide 80 mg tablet 40 mg PO DAILY tab 09/03/17 [History Confirmed 09/07/17] [facility] Medical History Atherosclerotic heart disease [place] coronary artery w/angina pectoris (Chronic) Type 2 diabetes mellitus without complications (Chronic) Hypertension (Chronic) Hyperlipidemia (Chronic) Old myocardial infarction (Chronic) Obesity (Chronic) 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, stage 3 (Chronic) Hoarseness (Chronic) Obstructive sleep apnea (Chronic) TIA (transient ischemic attack) (Chronic) Surgical History History of coronary artery stent placement (Chronic 08/13/17) History of herniorrhaphy (Chronic) History of prostatectomy (Chronic) History of tonsillectomy (Chronic) Hx of cholecystectomy (Chronic) Social History Smoking Status: Never smoker HPI HPI HPI: ERIBERTO GARCIA, is a 72 M who presents to the office today for abdominal bloating/cramping, diarrhea/constipation. Patient states that he is had diarrhea chronically in the past on an intermittent basis however currently it seems worse. Patient did have stool panel done which was negative in the ER. Also had a CT abdomen pelvis done in late August and early August which are acutely negative. Patient states he has been having bloating for about the last 3 weeks and did have initially constipation and had a little bit of blood on the toilet paper with the hard stools and now been having more diarrhea. He denies any reflux symptoms but does state he has had some increased burping and some occasional nausea. Patient is already on Protonix 40 mg p.o. twice daily. Patient states that he is able to eat however does have a decreased appetite. Does complain of abdominal cramps however upon further questioning he complains of cramps throughout his body including his arms and his chest unsure his abdominal cramps are related to intestinal or muscular system. Patient recently got a prescription for Reglan from his PCP Dr. Luke which patient states he thinks the bleed may be a little better with the medication currently. Recent past medical history includes drug-eluting heart stent placed in mid August 2017, Patient has had multiple heart stents and is currently on aspirin and Plavix. ROS General General: Yes weight change and fatigue; no appetite, colon cancer, breast cancer or weakness HEENT HEENT: No difficulty swallowing, eye injury, eye surgery, swollen glands or hoarseness Endo Endocrine: Yes diabetes mellitus; no thyroid disease, thyroid cancer, Hair loss, heat intolerance or cold intolerance Breast Breast: No left breast lump, right breast lump, nipple discharge, breast pain, abnormal mammogram, abnormal US or breast enlargement Musc Musculoskeletal: Yes back problems and gout; no arthritis, rheumatoid arthritis or joint pain Cardio Cardiovascular: Yes murmur, heart disease, high blood pressure, heart attack and heart stent; no pacemaker, atrial fibrillation, palpitations, shortness of breat with exertion or chest pain Psych Psychiatric: Yes anxiety; no depression or hearing voices Resp Respiratory: Yes shortness of breath, Yes sleep apnea, No cough, Yes COPD, No asthma, No emphysema, No wheezing Gastro Gastrointestinal: No abdominal pain, Yes nausea or vomiting, Yes diarrhea, Yes constipation, Yes blood in stool, No acid reflux, No hemorrhoids, No ulcers, No gallbladder problem, No black,tarry stools Gil Hematologic: Yes blood thinners, No blood disorders, No bleeding, No anemia, No blood clots Neuro Neurologic: No system reviewed and no additional complaints, except as docu, No as per HPI, No abnormal walking, No abnormal hearing, No abnormal movements, No abnormal speech, No behavioral changes, No burning sensations, No confusion, No seizure-like activity, No unsteadiness, No dizziness, No localized weakness, No frequent falls, No headache(s), No lack of coordination, No loss of vision, No memory loss, No numbness, No other visual disturbances, No radiating pain, No restless legs, No sensory deficit, No fainting, No tingling, No tremor(s), No weakness, No other Exam Const General: cooperative, comfortable, no acute distress Chest Breast Palpation: No nipple discharge Cardio Heart Sounds: murmur GI Inspection: non-distended, scar (Midline incision well-healed) Palpation: soft, nontender, no guarding Assessment AND Plan Problems 1. Bloating R14.0 2. Diarrhea R19.7 3. 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 Not recommend endoscopy at this time as would be unable to do any biopsies. We will try to treat patient's symptoms to see if that improves with medication. Currently patient did get a prescription of Reglan 10 mg p.o. 4 times daily from his PCP Dr. Luke. Patient is only been on this for 4 days and today he is only taken 2 doses. He states that the bloating may be a little better. Patient is already also on Protonix 40 mg p.o. twice daily. Discussed with patient I would not recommend endoscopy at this time due to being on Plavix and aspirin. Discussed with patient to try to give the Reglan some time to work and he will let us know in about 2 weeks how he is doing and try to keep a log of his symptoms at that time, is not able to give a great history of symptoms.. If the Reglan does not improve his symptoms may consider switching to Bentyl. Medications Discontinued: Plan Detail Follow Up 1 (On let us know how the Reglan is working if it does not seem to improve his symptoms may try Bentyl.) Coding Level of Care Code Off vis,new,level 3 Diagnoses Bloating R14.0 Diarrhea R19.7 History of coronary artery stent placement Z95.5 09/07/17 1345 <Electronically signed by Yael Yang MD> Date Yael Yang MD Cosigner Signature: Date (if applicable) CC: Victor M Luke DO 12 LEAD ELECTROCARDIOGRAM Observed: 09/06/2017 Status: F Source: [place] 2:17 PM [facility] REPOSITORY [facility] Cardiovascular Services [address] [place] [address] 12 Lead EKG 09/03/17 1530 MR#: [id number] Acct: [id number] Name: CUAUHTEMOCTAYLORERIBERTO Rep #: [id number] : 1945 72 From: Marcin Araujo MD Attending Dr: Status: DEP ER Ordering Dr: Jermain Lion DO Date: 09/03/17 Location: ED Sex: M C Admitted: Test Reason : AB LABS Blood Pressure : / mmHG Vent. Rate : 088 BPM Atrial Rate : 088 BPM P-R Int : 156 ms QRS Dur : 086 ms QT Int : 356 ms P-R-T Axes : 054 039 072 degrees QTc Int : 430 ms Normal sinus rhythm Normal ECG Confirmed by MARCIN ARAUJO MD ([id number]), make up editor MARLENY SIMENTAL ([id number]) on 09/06/2017 2:17:32 PM Referred By: Confirmed By:MARCIN ARAUJO MD 09/06/17 1417 Date Marcin Araujo MD CC: Victor M Luke DO; Jermain Lion DO Signed DISCHARGE INSTRUCTION Observed: 09/03/2017 Status: F Source: [place] 8:13 PM [facility] REPOSITORY [facility] Medical Records Department [address] [place] [address] Discharge Instruction 09/03/172011 MR#: [id number] Acct: [id number] Name: ERIBERTO GARCIA Rep #: [id number] : 1945 72 From: Jermain Lion DO PCP: Victor M Luke DO Status: REG ER ED Disposition - Plan for ED Patient: Chief Complaint: Abn Labs Instructions: ED Abdominal Pain Unkn Cause Male Prescriptions: Ondansetron [Zofran Odt] 4 mg PO Q8H PRN PRN #10 tab PRN Reason: Nausea Referrals: Victor M Luke DO [Primary Care Provider] - Elaís Almodovar MD [STAFF PHYSICIAN] - 3-5 Days What to do if you have Problems For any increased pain, shortness of breath, bleeding, nausea or vomiting, chest pain, or any unexpected problems, contact your Primary Care Provider. Call [facility] ([phone]) or report to the closest Emergency Room. Call 911 if necessary. 09/03/172012 <Electronically signed by Jermain Lion DO> Date Jermain Lion DO Cosigner Signature (If Indicated): Date CC: Victor M Luke DO EMERGENCY DEPARTMENT Observed: 09/03/2017 Status: F Source: [place] SUMMARY 8:12 PM [facility] REPOSITORY [facility] Medical Records Department [address] [place] [address] Emergency Department Summary 09/03/172008 MR#: [id number] Acct: [id number] Name: ERIBERTO GARCIA Rep #: [id number] : 1945 72 From: Jermain Lion DO PCP: Victor M Luke DO Status: REG ER - ER Visit Summary Date of Service: 09/03/17 Chief Complaint: [Abdominal pain] History of Present Illness: The patient is a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 then gradually got into his legs. He had a recent stent placed because he failed a stress test but states that the pain he felt in his chest did not feel at all like his cardiac chest pain. He is not short of breath or diaphoretic. He also recently was taken off of the statin to see if that would help with his pain. He has had vascular studies and the pain is not felt to be ischemic in nature. His family states that he has had a fairly comprehensive workup and no conclusive cause has been found to date and they have just been searching for different medications to help him. Physical Examination: Those are within normal limits. He is in mild distress due to pain. Neck is supple. Heart tones are regular without murmur. Lungs are clear bilaterally. Abdomen is soft and nontender. No focal or lateralizing neuro findings. Strong pulses in all extremities. No tenderness along the lower extremity venous system, palpable cords, or edema. Test Results: CT abdomen/pelvis negative for acute process. Labs within normal limits. Potassium normal. Emergency Department Course and Treatment: He was given IV fluids, morphine, and Ativan. His symptoms nearly resolved. He has no evidence of DVT and no evidence of an acute thromboembolic event or thrombosis in situ. He has strong pulses in both lower extremities. No claudication. I spoke at length with the patient and his family. They assure me that this is a chronic recurrent problem for him. I also discussed the case with Dr. Bolanos his agricultural education instructor and since he has a normal chest x-ray, EKG, and a negative troponin, this does not sound like cardiac type pain. Additionally, it is reassuring that this is such a chronic issue and not acute onset chest pain. Treatment Plan: After discussion with him, he feels comfortable going home. I will start him on a very low-dose of Lyrica, renally adjusted and he will follow-up with his doctor on Wednesday. He will return to the emergency department if worse before then Disposition: Home stable Impression: Chronic lower extremity and abdominal pain of uncertain etiology This note was generated with [employer] dictation software. It may contain incorrect words, spelling, and punctuation that were not noted in review of the chart prior to signing ED Disposition - Plan for ED Patient: Chief Complaint: Chest Pain Instructions: ED Chronic Pain Management Prescriptions: Pregabalin [Lyrica] 50 mg PO DAILY 7 Days #7 capsule Referrals: Victor M Luke, DO [Primary Care Provider] - As soon as possible What to do if you have Problems For any increased pain, shortness of breath, bleeding, nausea or vomiting, chest pain, or any unexpected problems, contact your Primary Care Provider. Call [facility] ([phone]) or report to the closest Emergency Room. Call 911 if necessary. 08/27/172101 <Electronically signed by Nadeem Wayne MD> Date Nadeem Wayne MD Cosigner Signature (If Indicated): Date CC: Victor M Marly CATHERINE ABDOMEN/PELVIS WITHOUT Observed: 08/27/2017 Status: F Source: [place] CONT 7:32 PM [facility] REPOSITORY [facility] Imaging Services [address] [place] [address] Abdomen/Pelvis without Cont MR#: [id number] Acct: [id number] Name: ERIBERTO GARCIA Rep #: [id number] : 1945 M 72 From: Hayder Coy MD PCP: Victor M Luke DO Status: REG ER Study: Abdomen/Pelvis without Cont Date of Exam: 08/27/17 Exam# [id number] Ordering Dr: Nadeem Wayne MD STUDY: CT ABDOMEN AND PELVIS WITHOUT CONTRAST REASON FOR EXAM: Male, 72 years old. Abdominal pain RADIATION DOSAGE (If Supplied By Facility): CTDIvol = ( 21.17 ) mGy, DLP = ( 1147.85 ) mGycm TECHNIQUE: Transaxial images were obtained from the dome of the diaphragm to the symphysis pubis without oral contrast, and without intravenous contrast. Sagittal and coronal images were reconstructed. Individualized dose optimization techniques were used for this CT. COMPARISON: CT examination of the abdomen pelvis from November 23, 2016 FINDINGS: Lung bases demonstrate no evidence for consolidative process. Bibasilar subsegmental atelectasis. Chronic fracture deformities of the right-sided rib noted. Pacemaker device likely present. Calcified granuloma in the right lower lobe. Subsegmental atelectasis in the lung bases. No pericardial effusion. Hepatic steatosis again seen. Prior cholecystectomy. Spleen appears unremarkable. The pancreas are within normal limits. The bowel gas pattern is nonobstructive. Postsurgical changes in the midline abdominal wall noted. No definite evidence for small bowel obstruction. Appendix appears unremarkable. No free air within the peritoneal cavity. No free fluid in the pelvis. Mild colonic diverticulosis without definite evidence for acute diverticulitis. No free air within the peritoneal cavity. No free fluid in the pelvis. Prostatic calcifications Degenerative changes in the sacroiliac joints. Small borderline in the iliac bones present. Degenerative changes in the lumbar spine mild wedging of the lower thoracic and upper lumbar vertebrae which appear chronic. Vascular calcifications of the abdominal aorta. No evidence for obstructive uropathy noted. No definite evidence for nephrolithiasis on the current examination. Cystic structure in the left renal pelvis measuring approximately 4.2 cm x 3.2 cm possibly a parapelvic cyst or calyceal diverticulum nonetheless stable since previous study. IMPRESSION: No definite evidence for small bowel obstruction. No evidence for acute appendicitis. Scattered colonic diverticulosis without definite evidence for acute diverticulitis. No evidence for obstructive uropathy. No evidence for nephrolithiasis. Low-attenuation structure in the left renal pelvis which appears stable since previous examination. Differential considerations include parapelvic cysts or calyceal diverticulum. Other differential possibilities include a low-grade neoplasm nonetheless stable since previous study Postsurgical changes in the abdominal wall with prior hernia repair Electronically Signed: Hayder Coy, at 20:14 EDT Tel , Service support , CT/Abdomen/Pelvis without Cont CC: Ben Wayne MD; Victor M Luke DO Early Breastfeeding Care Specialist: Signed CHEST 1 VIEW Observed: 08/27/2017 Status: F Source: [place] (PORTABLE) 7:27 PM [facility] REPOSITORY [facility] Imaging Services [address] [place] [address] Chest 1 View (Portable) MR#: [id number] Acct: [id number] Name: ERIBERTO GARCIA Rep #: [id number] : 1945 M 72 From: Hayder Coy MD PCP: Victor M Luke DO Status: REG ER Study: Chest 1 View (Portable) Date of Exam: 08/27/17 Exam# [id number] Ordering Dr: Nadeem Wayne MD STUDY: X-RAY CHEST REASON FOR EXAM: Male, 72 years old. Body cramping for one hour and left-sided chest pressure TECHNIQUE: Single view of the chest was obtained COMPARISON: July 07, 2017 chest radiograph FINDINGS: No lung consolidation, pleural effusion or pneumothorax. Mild cardiomegaly. Calcifications of the aortic knob slightly elevated right hemidiaphragm. No definite evidence for acute osseous abnormalities. Degenerative changes in the thoracic spine. Deformity of the right-sided ribs likely chronic IMPRESSION: No evidence for focal airspace disease. Stable chest radiograph since previous exam Electronically Signed: Hayder Coy, at 20:18 EDT Tel , Service support , RAD/Chest 1 View (Portable) CC: Ben Wayne MD; Victor M Luke DO Early Breastfeeding Care Specialist: Signed BASIC METABOLIC Collected: 08/27/2017 Status: F Source: [place] PROFILE (BMP) 6:55 PM [facility] REPOSITORY Order Comment: 'TROP' Serial specimen #1, #2, #3, or #4: 1 TYPE CODE TESTS RESULT OUT OF RANGE REFERENCE UNITS LAB L501.0100 74-106 mg/dL High GLU 146 Result Comment: Fasting Glucose result greater than or equal to 126 mg/dL suggests DIABETES MELLITUS per A.D.A. criteria. Please note revised GLUCOSE reference range effective 2017. LAB L501.1000 7-18 mg/dL High BUN 21 LAB L501.1100 0.70-1.30 mg/dL High CREAT,SERUM 2.75 Result Comment: The validity of the calculated GFR AND GFRAA in patients over 70 years has not been determined. Clinical correlation is essential. LAB L501.1110 >60 mL/min Low EST GFR 24 Result Comment: Non- GFR Calc LAB L501.1115 >60 mL/min Low EST GFR - AA 29 Result Comment: GFR Calc LAB L501.1255 ml/min Normal Estimated CRCL 24.28 LAB L501.1300 10-20 RATIO Low BUN/CRE 7.6 LAB L501.2200 8.5-10 mg/dL Low .1 CA 8.1 LAB L501.5300 136-14 mmol/L Normal 5 NA 136 LAB L501.5600 3.5-5. mmol/L Normal 1 K 3.6 LAB L501.5900 98-107 mmol/L Normal CL 102 LAB L501.6100 21.0-3 mmol/L Normal 2.0 CO2 27.0 LAB L501.6200 5-15 Normal GAP 7 Performed By: #### L500.2500, L501.4010 #### [facility] [address] [place], [address] TROPONIN-I Collected: 08/27/2017 Status: F Source: [place] 6:55 PM [facility] REPOSITORY Order Comment: 'TROP' Serial specimen #1, #2, #3, or #4: 1 TYPE CODE TESTS RESULT OUT OF RANGE REFERENCE UNITS LAB L501.4010 <0.06 ng/mL Normal < 0.02 TROPONIN-I Result Comment: TROPONIN-I EXPECTED VALUES <0.05 NEGATIVE 0.06 - 0.59 AT RISK OF ME > OR = 0.60 SUGGEST ME Performed By: #### L500.2500, L501.4010 #### [facility] [address] [place], [place], [address] CBC W/DIFF, AUTOMATED Collected: 08/27/2017 Status: F Source: [place] 6:55 PM [facility] REPOSITORY TYPE CODE TESTS RESULT OUT OF RANGE REFERENCE UNITS LAB L100.1000 4.4-11.0 K/mm3 Normal WBC 9.1 LAB L100.1200 4.6-6.2 M/mm3 Normal RBC 4.73 LAB L100.1300 13.0-16.5 g/dl Normal HGB 13.7 LAB L100.1400 40-54 % Normal HCT 41.8 LAB L100.1500 80-94 fL Normal MCV 88.4 LAB L100.1600 27.0-32.0 pg Normal MCH 29.0 LAB L100.1700 32-36 g/gl Normal MCHC 32.8 LAB L100.1810 11.6-14.6 % Normal RDW CV 14.0 LAB L100.1820 35.1-43.9 fl High RDW SD 45.3 LAB L100.1900 150-450 K/mm3 Normal PLT 157 LAB L100.2000 6.2-12.0 fl High MPV 12.3 LAB L100.2100 47-70 % High NEUT% 70.5 LAB L100.2200 19-41 % Low LY% 18.1 LAB L100.2300 0-10 % High MONO% 10.1 LAB L100.2400 0-5 % Normal EO% 0.8 LAB L100.2500 0-1 % Normal BASO% 0.2 LAB L100.2550 0.0-0.9 % Normal IM GRAN % 0.300 Result Comment: IG% - Immature Granulocytes (promyelocytes, myelocytes and metamyelocytes) > 1% indicates that a LEFT SHIFT is Present. LAB L100.2620 2.0-7.7 X10 3/uL Normal Absolute Neut 6.4 LAB L100.2720 0.83-4.51 X10 3/ul Normal Absolute Lymph 1.64 Performed By: #### L100.0100 #### [facility] [place], [address] URINALYSIS, COMPLETE Collected: 08/26/2017 Status: F Source: [place] 10:56 AM [facility] REPOSITORY Order Comment: How was Urine Obtained? Urine, Random TYPE CODE TESTS RESULT OUT OF RANGE REFERENCE UNITS LAB L400.3000 Yellow COLOR Normal Yellow LAB L400.3050 Clear Normal CLARITY Clear LAB L400.3200 Normal mg/dl High GLUCOSE, UR 250 LAB L400.3300 Negative mg/dL Normal BILIRUBIN URINE Negative LAB L400.3400 Negative mg/dl Normal KETONE UR Negative LAB L400.3465 1.002-1.030 Normal SP.GR. DIPSTX 1.015 LAB L400.3550 5.0 - 8.0 pH UR Normal 6.5 LAB L400.3600 Negative mg/dl PROT Normal DIPSTX Negative LAB L400.3700 Normal mg/dl Normal UROBILI Normal LAB L400.3750 Negative Normal NITRITE UR Negative LAB L400.3780 Negative /ul Normal OCCULT BLOOD-UR Negative LAB L400.3800 Negative /ul LEUK Normal ESTERASE Negative LAB L400.4050 0-5 /hpf WBC 0 Normal SEEN LAB L400.4100 0-5 /hpf 0 Normal RBC-UA SEEN LAB L400.4150 0-5 /hpf SQUAM Normal EPI 0-5 SEEN LAB L400.4300 None Seen /hpf 0 Normal BACTERIA SEEN LAB L400.4350 <or=2+ /hpf 0 Normal MUCUS, URINE SEEN Performed By: #### L400.0001 #### [facility] [address] [facility] [place], [address] D-DIMER QUANTITATIVE Collected: 08/26/2017 Status: F Source: [place] (DVT/PE) 10:56 AM [facility] REPOSITORY TYPE CODE TESTS RESULT OUT OF RANGE REFERENCE UNITS LAB L300.8000 0.27-0.49 FEU/ug/m Normal D-DIMER 0.33 QUANT Result Comment: NORMAL D-Dimer level (<0.50) indicates no DVT or PE. Performed By: #### L300.8000 #### [facility] [address] [facility] [place], [place], [address] HEMOGLOBIN A1C Collected: 08/26/2017 Status: F Source: [place] 10:56 AM [facility] REPOSITORY TYPE CODE TESTS RESULT OUT OF RANGE REFERENCE UNITS LAB L501.9985 4.2-6.3 % High HGB A1C 7.4 Performed By: #### L501.9985 #### [facility] [address] [facility] [place], [place], [address] COMPREHENSIVE METABOLIC Collected: 08/26/2017 Status: F Source: [place] PROFIL 10:56 AM [facility] REPOSITORY TYPE CODE TESTS RESULT OUT OF RANGE REFERENCE UNITS LAB L501.0100 74-106 mg/dL High GLU 203 Result Comment: Glucose result greater than or equal to 200 mg/dL suggests DIABETES MELLITUS per A.D.A. criteria. Please note revised GLUCOSE reference range effective 2017. LAB L501.1000 7-18 mg/dL Normal BUN 15 LAB L501.1100 0.70-1.30 mg/dL Normal CREAT,SERUM 1.28 Result Comment: The validity of the calculated GFR AND GFRAA in patients over 70 years has not been determined. Clinical correlation is essential. LAB L501.1110 >60 mL/min Low EST GFR 59 Result Comment: Non- GFR Calc LAB L501.1115 >60 mL/min Normal EST GFR - AA 71 Result Comment: GFR Calc LAB L501.1300 10-20 RATIO Normal BUN/CRE 11.7 LAB L501.1500 6.4-8.2 g/dL T Normal PROT 6.8 LAB L501.1800 3.2-5.0 g/dL Normal ALB 3.5 LAB L501.1950 2.2-4.2 g/dL Normal GLOB 3.3 LAB L501.2000 0.9-2.4 RATIO Normal A/G 1.1 LAB L501.2200 8.5-10.1 mg/dL CA Normal 8.6 LAB L501.4100 15-37 U/L Normal AST 37 LAB L501.4305 45-117 U/L Normal ALK P 117 LAB L501.4405 16-61 U/L Normal ALT 57 LAB L501.4600 0.20-1.00 mg/dL High T BILI 1.50 LAB L501.5300 136-145 mmol/L NA Normal 139 LAB L501.5600 3.5-5.1 mmol/L K Normal 4.0 LAB L501.5900 98-107 mmol/L CL Normal 105 LAB L501.6100 21.0-32.0 mmol/L Normal CO2 28.0 LAB L501.6200 5-15 Normal GAP 6 Performed By: #### L500.4050 #### [facility] [address] [place], [address] BNP,B-TYPE NATRIURETIC Collected: 08/26/2017 Status: F Source: [place] PEPTIDE 10:56 AM [facility] REPOSITORY TYPE CODE TESTS RESULT OUT OF RANGE REFERENCE UNITS LAB L503.6620 0-100 pg/mL Normal B-TYPE 33.3 RIA PEP Performed By: #### L503.6620 #### [facility] [address] [place], [address] PULMONARY FUNCTION Observed: 08/23/2017 Status: F Source: [place] TEST 1:17 PM [facility] REPOSITORY [facility] Pulmonary Services/Neurology [address] [place] [address] MR#: [id number] Acct: [id number] Name: ERIBERTO GARCIA Rep #: [id number] : 1945 72 From: Zen East DO Referring Dr: Elías Bolanos MD Status: REG CLI Ordering Dr: Date: Location: [facility] Sex: M C INTRODUCTION: The patient is a 72-year-old male currently under the care of Dr. Bolanos that presents for pulmonary function testing secondary to a diagnosis of dyspnea. Respiratory therapy reports good patient effort and reports no other concerns. Bronchodilators were used during testing. INTERPRETATION: Forced expiration spirometry demonstrates the presence of a moderate large airways obstructive ventilatory defect. There was no significant response to aerosolized bronchodilators, based upon strict ATS criteria. Spirograms are of good quality and do not plateau indicating slow emptying of the lungs. The respiratory flow volume loop reveals decreased expiratory flow rates at all lung volumes consistent with airways obstruction. Body plethysmography was performed and reveals lung volumes to be within normal limits. Diffusing capacity by single breath CO is also within normal limits at 89% of predicted. IMPRESSION: These pulmonary function studies demonstrate the presence of a partially reversible moderate large airways obstructive ventilatory defect. There are no previous pulmonary function studies available for comparison. 08/23/17 1317 <Electronically signed by Zen East DO> Date Zen East DO CC: Elías Bolanos MD; Victor M Luke DO Date Dictated: 08/23/171313 Date Transcribed: 08/23/171313 Early Breastfeeding Care Specialist: DB Signed 12 LEAD ELECTROCARDIOGRAM Observed: 08/22/2017 Status: F Source: [place] 8:59 PM [facility] REPOSITORY [facility] Cardiovascular Services [address] [place] [address] 12 Lead EKG 08/14/17 0535 MR#: [id number] Acct: [id number] Name: ERIBERTO GARCIA Rep #: [id number] : 1945 72 From: John Loyd MD Attending Dr: Elías Bolanos MD Status: [facility] Ordering Dr: Elías Bolanos MD Date: 08/14/17 Location: [place] [facility] Sex: M C Admitted: Test Reason : AM EKG Blood Pressure : / mmHG Vent. Rate : 073 BPM Atrial Rate : 073 BPM P-R Int : 166 ms QRS Dur : 082 ms QT Int : 372 ms P-R-T Axes : 064 057 080 degrees QTc Int : 409 ms Normal sinus rhythm Inferior ME, age undetermined, cannot be excluded Nonspecific T wave abnormality Confirmed by RACH PALOMO, JOHN ([id number]), make up editor MARLENY SIMENTAL ([id number]) on 08/20/2017 1:39:52 PM Referred By: Elías Bolanos Confirmed By:JOHN LOYD MD 08/20/17 1339 Date John Loyd MD CC: Elías Bolanos MD; Victor M Lkue DO Signed 12 LEAD ELECTROCARDIOGRAM Observed: 08/22/2017 Status: F Source: [place] 8:59 PM [facility] REPOSITORY [facility] Cardiovascular Services [address] [place] [address] 12 Lead EKG 08/13/17 1423 MR#: [id number] Acct: [id number] Name: ERIBERTO GARCIA Rep #: [id number] : 1945 72 From: John Loyd MD Attending Dr: Elías Bolanos MD Status: DEP [facility] Ordering Dr: Elías Bolanos MD Date: 08/13/17 Location: [facility] Sex: M C Admitted: Test Reason : CP Blood Pressure : / mmHG Vent. Rate : 071 BPM Atrial Rate : 071 BPM P-R Int : 160 ms QRS Dur : 086 ms QT Int : 402 ms P-R-T Axes : 067 062 078 degrees QTc Int : 436 ms Normal sinus rhythm Inferior ME, age undetermined, cannot be excluded Nonspecific T wave abnormality Confirmed by JOHN LOYD MD ([id number]), make up editor MARLENY SIMENTAL ([id number]) on 08/20/2017 1:40:48 PM Referred By: Elías Bolanos Confirmed By:JOHN LOYD MD 08/20/17 4368 Date John Loyd MD CC: Elías Bolanos MD; Victor M Luke DO Signed 12 LEAD ELECTROCARDIOGRAM Observed: 08/22/2017 Status: F Source: [place] 8:59 PM [facility] REPOSITORY [facility] Cardiovascular Services [address] [place] [address] 12 Lead EKG 08/13/17 1043 MR#: [id number] Acct: [id number] Name: ERIBERTO GARCIA Rep #: [id number] : 1945 72 From: John Loyd MD Attending Dr: Elías Bolanos MD Status: [facility] Ordering Dr: Elías Bolanos MD Date: 08/13/17 Location: [facility] Sex: M C Admitted: Test Reason : POST CATH Blood Pressure : / mmHG Vent. Rate : 063 BPM Atrial Rate : 063 BPM P-R Int : 166 ms QRS Dur : 082 ms QT Int : 380 ms P-R-T Axes : 069 060 083 degrees QTc Int : 388 ms Normal sinus rhythm Nonspecific T wave abnormality Confirmed by JOHN LOYD MD ([id number]), make up editor MARLENY SIMENTAL ([id number]) on 08/20/2017 1:41:03 PM Referred By: Elías Bolanos Confirmed By:JOHN LOYD MD 08/20/17 1781 Date John Loyd MD CC: Elías Bolanos MD; Victor M Luke DO Signed CBC-COMPLETE BLOOD CNT Collected: 08/14/2017 Status: F Source: [place] NO DIFF 4:30 PM [facility] TYPE CODE TESTS RESULT OUT OF RANGE REFERENCE UNITS LAB L100.1000 4.4-11.0 K/mm3 Normal WBC 8.3 LAB L100.1200 4.6-6.2 M/mm3 Normal RBC 5.12 LAB L100.1300 13.0-16.5 g/dl Normal HGB 15.0 LAB L100.1400 40-54 % Normal HCT 45.1 LAB L100.1500 80-94 fL Normal MCV 88.1 LAB L100.1600 27.0-32.0 pg Normal MCH 29.3 LAB L100.1700 32-36 g/gl Normal MCHC 33.3 LAB L100.1810 11.6-14.6 % Normal RDW CV 14.5 LAB L100.1820 35.1-43.9 fl High RDW SD 46.4 LAB L100.1900 150-450 K/mm3 Normal PLT 163 LAB L100.2000 6.2-12.0 fl High MPV 12.1 Performed By: #### L100.0500 #### [facility] [address] [place], [address] DISCHARGE SUMMARY Observed: 08/14/2017 Status: F Source: [place] 12:53 PM [facility] REPOSITORY [facility] Medical Records Department [address] [place] [address] Discharge Summary 08/14/17 1249 MR#: [id number] Acct: [id number] Name: ERIBERTO GARCIA Rep #: [id number] : 1945 72 From: Jose Suárez MD PCP: Victor M Luke DO Status: REG [facility] Y Location: ICU [id number] Discharge Date and Diagnosis Date of Admission: 03/15/11 Date of Discharge: 08/14/17 - Primary Discharge Diagnosis 1. 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 Type 2 diabetes mellitus without complications (Chronic) Hypertension (Chronic) Hyperlipidemia (Chronic) Old myocardial infarction (Chronic) Obesity (Chronic) History of coronary artery stent placement (Chronic 05/07/06) PCI-POBA-Cx and Stent-Mid RCA x 2 Multi Link Mini Vision Rx Strent 4.0 x 28 mm 01/21/2006 PCI-KENDALL-Mid RCA Taxus Express2 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 Angiography revealed lesion and aberrantly originating circumflex coronary artery. Successful percutaneous intervention was performed with placement of a drug-eluting stent [] Discharge Diet: Low fat/ Low Cholesterol Discharge Activity: Return to Normal Activity May shower in (days): 1 May resume sexual activity in: 10-14 days Call your doctor if your incision/area has: Continuous Slow Oozing, Sudden Increased Bleeding, Increased Pain/ Swelling, Increased Redness, Foul Smelling Discharge, Swelling at the incision site Call your doctor if you observe: Fever of 101 or Higher, Shortness of breath, Chest pain Remove Dressing in (days):: 1 Cleanse incision/area with: Soap AND Water Home Medications: Medications to take at Discharge Aspirin E.C. [Ecotrin] 81 mg PO DAILY@0800 01/21/17 Cholecalciferol (Vitamin D3) [Vitamin D3] 2,000 unit PO DAILY 01/21/17 Clopidogrel Bisulfate [Clopidogrel] 75 mg PO DAILY 01/21/17 Cyanocobalamin (Vitamin B-12) [Vitamin B-12] 1,000 mcg PO DAILY 01/21/17 Furosemide [Lasix] 80 mg PO DAILY 01/21/17 Isosorbide Mononitrate [Imdur] 120 mg PO DAILY 01/21/17 Magnesium Oxide [Magnesium] 400 mg PO DAILY 01/21/17 Nitroglycerin [Nitrostat] 0.3 mg SL UD PRN 01/21/17 Pantoprazole Sodium [Protonix] 40 mg PO BID 01/21/17 Spironolactone [Aldactone] 50 mg PO DAILY 01/21/17 Venlafaxine HCl [Venlafaxine HCl ER] 150 mg PO DAILY 01/21/17 metoprolol tartrate 50 mg tablet 50 mg PO BID 07/22/17 potassium chloride ER 20 mEq tablet,extended release 20 meq PO Q4H tab 07/22/17 Atorvastatin Calcium [Lipitor] 80 mg PO QHS 08/12/17 Primary Care Physician: Victor M Luke DO [Primary Care Provider] - Please Follow Up With: Dr. Bolanos When: 08/30/2017 at 1:30 Additional Instructions: You will continue with Plavix for at least one year. If anyone asks you to stop it or you are getting low on medication, please call the [facility] at [phone]. You will continue with aspirin for life if tolerated. You will keep appointment on 08/30/[address] Bolanos for further evaluation. You will under going lung tests on 08/23/2017. You may receive a phone call from cardiac rehab before next visit with Dr. Bolanos. Medical Necessity - Tobacco Use Smoking Status: Former smoker - QUIT 20 NYRS AGO Meaningful Use Info Meaningful Use Diagnoses (Choose all that apply): None applicable 08/14/17 1253 <Electronically signed by Jose Suárez MD> Date Jose Suárez MD Cosigner Signature (if applicable): Date CC: Jose Suárez MD; Victor M Luke DO Signed BASIC METABOLIC Collected: 08/14/2017 Status: F Source: [place] PROFILE ([facility]) 4:20 AM [facility] REPOSITORY TYPE CODE TESTS RESULT OUT OF RANGE REFERENCE UNITS LAB L501.0100 74-106 mg/dL High GLU 114 Result Comment: Fasting Glucose result from 100 to 125 mg/dL suggests IMPAIRED HOMEOSTASIS per A.D.A. criteria. Please note revised GLUCOSE reference range effective 2017. LAB L501.1000 7-18 mg/dL Normal BUN 16 LAB L501.1100 0.70-1.30 mg/dL Normal CREAT,SERUM 1.25 Result Comment: The validity of the calculated GFR AND GFRAA in patients over 70 years has not been determined. Clinical correlation is essential. LAB L501.1110 >60 mL/min Normal EST GFR 60 Result Comment: Non- GFR Calc LAB L501.1115 >60 mL/min Normal EST GFR - AA 73 Result Comment: GFR Calc LAB L501.1255 ml/min Normal Estimated CRCL 53.42 LAB L501.1300 10-20 RATIO Normal BUN/CRE 12.8 LAB L501.2200 8.5-10 mg/dL Low .1 CA 8.4 LAB L501.5300 136-14 mmol/L Normal 5 NA 139 LAB L501.5600 3.5-5. mmol/L Normal 1 K 4.2 LAB L501.5900 98-107 mmol/L Normal CL 105 LAB L501.6100 21.0-3 mmol/L Normal 2.0 CO2 27.0 LAB L501.6200 5-15 Normal GAP 7 Performed By: #### L500.2500, L500.4100 #### [facility] [address] [place], [address] LIPID PROFILE Collected: 08/14/2017 Status: F Source: [place] 4:20 AM [facility] REPOSITORY TYPE CODE TESTS RESULT OUT OF RANGE REFERENCE UNITS LAB L501.4900 200 mg/dL Normal CHOL 200 Result Comment: <200 mg/dL Desirable 200-240 mg/dL Borderline >240 mg/dL High Risk LAB L501.5000 mg/dL High TRIG 328 Result Comment: The drugs N-Acetylcysteine and Metamizole may falsely depress this assay. Serum Triglycerides Reference Interval Normal <150 mg/dL Borderline high 150 - 199 mg/dL High 200 - 499 mg/dL Very High > or = 500 mg/dL LAB L501.6400 mg/dL Low HDL 34 Result Comment: The drugs N-Acetylcysteine and Metamizole may falsely depress this assay. Reference Range HDL <40 mg/dL Low HDL Cholesterol HDL >or= 60 mg/dL High HDL Cholesterol LAB L501.6500 0-130 mg/dL Normal LDL 100 LAB L501.6600 5-40 mg/dL High VLDL 66 Performed By: #### L500.2500, L500.4100 #### [facility] [address] [facility] [place], [place], [address] CBC-COMPLETE BLOOD CNT Collected: 08/14/2017 Status: F Source: [place] NO DIFF 4:20 AM [facility] REPOSITORY Order Comment: Comments: 6H post procedure AND Q6H x 4 TYPE CODE TESTS RESULT OUT OF RANGE REFERENCE UNITS LAB L100.1000 4.4-11.0 K/mm3 Normal WBC 8.4 LAB L100.1200 4.6-6.2 M/mm3 Normal RBC 4.73 LAB L100.1300 13.0-16.5 g/dl Normal HGB 13.9 LAB L100.1400 40-54 % Normal HCT 42.1 LAB L100.1500 80-94 fL Normal MCV 89.0 LAB L100.1600 27.0-32.0 pg Normal MCH 29.4 LAB L100.1700 32-36 g/gl Normal MCHC 33.0 LAB L100.1810 11.6-14.6 % High RDW CV 14.7 LAB L100.1820 35.1-43.9 fl High RDW SD 47.4 LAB L100.1900 150-450 K/mm3 Low PLT 130 LAB L100.2000 6.2-12.0 fl Normal MPV 11.9 Performed By: #### L100.0500 #### [facility] [address] [facility] [place], [place], [id number] CPK TOTAL, CREATINE Collected: 08/13/2017 Status: F Source: [place] KINASE 10:05 PM [facility] REPOSITORY TYPE CODE TESTS RESULT OUT OF RANGE REFERENCE UNITS LAB L501.3620 39-308 U/L Normal CPK TOTAL 91 Performed By: #### L501.3620 #### [facility] [address] [place], [place], [address] CBC-COMPLETE BLOOD CNT Collected: 08/13/2017 Status: F Source: [place] NO DIFF 10:05 PM [facility] REPOSITORY Order Comment: Comments: 6H post procedure AND Q6H x 4 TYPE CODE TESTS RESULT OUT OF RANGE REFERENCE UNITS LAB L100.1000 4.4-11.0 K/mm3 Normal WBC 8.9 LAB L100.1200 4.6-6.2 M/mm3 Normal RBC 4.98 LAB L100.1300 13.0-16.5 g/dl Normal HGB 14.3 LAB L100.1400 40-54 % Normal HCT 44.1 LAB L100.1500 80-94 fL Normal MCV 88.6 LAB L100.1600 27.0-32.0 pg Normal MCH 28.7 LAB L100.1700 32-36 g/gl Normal MCHC 32.4 LAB L100.1810 11.6-14.6 % Normal RDW CV 14.6 LAB L100.1820 35.1-43.9 fl High RDW SD 47.5 LAB L100.1900 150-450 K/mm3 Normal PLT 158 LAB L100.2000 6.2-12.0 fl High MPV 12.2 LAB L100.9900 Normal PATH REV N/A Performed By: #### L100.0500 #### [facility] [address] [place], [address] CPK TOTAL, CREATINE Collected: 08/13/2017 Status: F Source: [place] 4:30 PM [facility] REPOSITORY TYPE CODE TESTS RESULT OUT OF RANGE REFERENCE UNITS LAB L501.3620 39-308 U/L Normal CPK TOTAL 86 Performed By: #### L501.3620 #### [facility] [address] [place], [address] CBC-COMPLETE BLOOD CNT Collected: 08/13/2017 Status: F Source: [place] NO DIFF 4:30 PM [facility] REPOSITORY Order Comment: Comments: 6H post procedure AND Q6H x 4 TYPE CODE TESTS RESULT OUT OF RANGE REFERENCE UNITS LAB L100.1000 4.4-11.0 K/mm3 Normal WBC 7.2 LAB L100.1200 4.6-6.2 M/mm3 Normal RBC 4.64 LAB L100.1300 13.0-16.5 g/dl Normal HGB 13.4 LAB L100.1400 40-54 % Normal HCT 41.6 LAB L100.1500 80-94 fL Normal MCV 89.7 LAB L100.1600 27.0-32.0 pg Normal MCH 28.9 LAB L100.1700 32-36 g/gl Normal MCHC 32.2 LAB L100.1810 11.6-14.6 % High RDW CV 14.7 LAB L100.1820 35.1-43.9 fl High RDW SD 48.1 LAB L100.1900 150-450 K/mm3 Low PLT 141 LAB L100.2000 6.2-12.0 fl High MPV 12.4 Performed By: #### L100.0500 #### [facility] [address] [place], [address] DISCHARGE INSTRUCTION Observed: 08/13/2017 Status: F Source: [place] 3:06 PM [facility] REPOSITORY [facility] Medical Records Department [address] [place] [address] Instructions for Home/Discharge Instructions 08/13/17 1501 MR#: [id number] Acct: [id number] Name: ERIBERTO GARCIA Rep #: [id number] : 1945 72 From: Gustabo Pérez COST CLERK-C PCP: Victor M Luke DO Status: REG SD Discharge Diet: Low fat/ Low Cholesterol Discharge Activity: Return to Normal Activity May shower in (days): 1 May resume sexual activity in: 10-14 days Lifting Restrictions: Do not lift anything greater than 10 pounds for 3 days Call your doctor if your incision/area has: Continuous Slow Oozing, Sudden Increased Bleeding, Increased Pain/ Swelling, Increased Redness, Foul Smelling Discharge, Swelling at the incision site Call your doctor if you observe: Fever of 101 or Higher, Shortness of breath, Chest pain Remove Dressing in (days):: 1 Cleanse incision/area with: Soap AND Water Additional Instructions: You will continue with Plavix for at least one year. If anyone asks you to stop it or you are getting low on medication, please call the [facility] at [phone]. You will continue with aspirin for life if tolerated. You will keep appointment on 08/30/[address] Bolanos for further evaluation. You will under going lung tests on 08/23/2017. You may receive a phone call from cardiac rehab before next visit with Dr. Bolanos. Allergies/Adverse Reactions: Allergies No Known Allergies Allergy (Verified 07/22/17 10:54) Medications to take at Discharge Aspirin E.C. [Ecotrin] 81 mg PO DAILY@0800 01/21/17 Cholecalciferol (Vitamin D3) [Vitamin D3] 2,000 unit PO DAILY 01/21/17 Clopidogrel Bisulfate [Clopidogrel] 75 mg PO DAILY 01/21/17 Cyanocobalamin (Vitamin B-12) [Vitamin B-12] 1,000 mcg PO DAILY 01/21/17 Furosemide [Lasix] 80 mg PO DAILY 01/21/17 Isosorbide Mononitrate [Imdur] 120 mg PO DAILY 01/21/17 Magnesium Oxide [Magnesium] 400 mg PO DAILY 01/21/17 Nitroglycerin [Nitrostat] 0.3 mg SL UD PRN 01/21/17 Pantoprazole Sodium [Protonix] 40 mg PO BID 01/21/17 Spironolactone [Aldactone] 50 mg PO DAILY 01/21/17 Venlafaxine HCl [Venlafaxine HCl ER] 150 mg PO DAILY 01/21/17 metoprolol tartrate 50 mg tablet 50 mg PO BID 07/22/17 potassium chloride ER 20 mEq tablet,extended release 20 meq PO Q4H tab 07/22/17 Atorvastatin Calcium [Lipitor] 80 mg PO QHS 08/12/17 Primary Care Physician: Victor M Luke DO [Primary Care Provider] - Please Follow Up With: Dr. Bolanos When: 08/30/2017 at 1:30 Proposed Discharge Date: 08/14/17 Cardiac Rehabilitation Info Cardiac Rehabilitation Program Information: Cardiac Rehabilitation is important for patients like you who are recovering from a heart problem. Cardiac rehabilitation programs are recognized as integral to the continued care of the patient with coronary heart disease. The cardiac rehabilitation program is designed to optimize a patient's physical, psychological, and social functioning. Health respite care provider work in cardiac rehabilitation programs and assist you with getting the treatments you need to get stronger and healthier - like exercise, healthy eating habits, and medications. Cardiac rehabilitation has been show to help people with heart problems live longer and have better life enjoyment than people who do not go to cardiac rehabilitation. Please contact the Cardiac Rehabilitation Program at [facility] at in two weeks if you have not heard from them. 08/13/17 8132 <Electronically signed by Gustabo POOL> Date Gustabo POOL CC: Victor M Luke CBC-COMPLETE BLOOD CNT Collected: 08/13/2017 Status: F Source: [place] NO DIFF 10:35 AM [facility] REPOSITORY Order Comment: Comments: 6H post procedure AND Q6H x 4 TYPE CODE TESTS RESULT OUT OF RANGE REFERENCE UNITS LAB L100.1000 4.4-11.0 K/mm3 Normal WBC 8.4 LAB L100.1200 4.6-6.2 M/mm3 Normal RBC 4.80 LAB L100.1300 13.0-16.5 g/dl Normal HGB 14.1 LAB L100.1400 40-54 % Normal HCT 42.3 LAB L100.1500 80-94 fL Normal MCV 88.1 LAB L100.1600 27.0-32.0 pg Normal MCH 29.4 LAB L100.1700 32-36 g/gl Normal MCHC 33.3 LAB L100.1810 11.6-14.6 % Normal RDW CV 14.6 LAB L100.1820 35.1-43.9 fl High RDW SD 46.8 LAB L100.1900 150-450 K/mm3 Normal PLT 167 LAB L100.2000 6.2-12.0 fl High MPV 12.2 Performed By: #### L100.0500 #### [facility] [address] [place], [address] CPK TOTAL, CREATINE Collected: 08/13/2017 Status: F Source: [place] KINASE 10:35 AM [facility] REPOSITORY TYPE CODE TESTS RESULT OUT OF RANGE REFERENCE UNITS LAB L501.3620 39-308 U/L Normal CPK TOTAL 81 Performed By: #### L501.3620 #### [facility] [address] [place], [address] M R STAPH AUREUS Collected: 08/13/2017 Status: F Source: [place] DNA BY PCR 10:30 AM [facility] REPOSITORY TYPE CODE TESTS RESULT OUT OF RANGE REFERENCE UNITS LAB L8200.1100 Negative Normal MRSA Negative RESULT Performed By: #### L8200.1000 #### [facility] [address] [place], [place], [address] ACT ACTIVATED CLOTTING Collected: 08/13/2017 Status: F Source: [place] TIME 9:54 AM [facility] REPOSITORY TYPE CODE TESTS RESULT OUT OF RANGE REFERENCE UNITS LAB L9100.0100 74-137 sec High ACTk CLOT 158 TIME Performed By: #### L9100.0100 #### [facility] Point of Care [address] [place] [address] CBC W/DIFF, AUTOMATED Collected: 08/11/2017 Status: F Source: [place] 10:29 AM [facility] REPOSITORY TYPE CODE TESTS RESULT OUT OF RANGE REFERENCE UNITS LAB L100.1000 4.4-11.0 K/mm3 Normal WBC 7.1 LAB L100.1200 4.6-6.2 M/mm3 Normal RBC 5.33 LAB L100.1300 13.0-16.5 g/dl Normal HGB 15.3 LAB L100.1400 40-54 % Normal HCT 47.3 LAB L100.1500 80-94 fL Normal MCV 88.7 LAB L100.1600 27.0-32.0 pg Normal MCH 28.7 LAB L100.1700 32-36 g/gl Normal MCHC 32.3 LAB L100.1810 11.6-14.6 % High RDW CV 14.7 LAB L100.1820 35.1-43.9 fl High RDW SD 48.0 LAB L100.1900 150-450 K/mm3 Normal PLT 161 LAB L100.2000 6.2-12.0 fl High MPV 12.3 LAB L100.2100 47-70 % Normal NEUT% 67.4 LAB L100.2200 19-41 % Normal LY% 19.6 LAB L100.2300 0-10 % High MONO% 10.9 LAB L100.2400 0-5 % Normal EO% 1.4 LAB L100.2500 0-1 % Normal BASO% 0.3 LAB L100.2550 0.0-0.9 % Normal IM GRAN % 0.400 Result Comment: IG% - Immature Granulocytes (promyelocytes, myelocytes and metamyelocytes) > 1% indicates that a LEFT SHIFT is Present. LAB L100.2620 2.0-7.7 X10 3/uL Normal Absolute Neut 4.8 LAB L100.2720 0.83-4.51 X10 3/ul Normal Absolute Lymph 1.39 Performed By: #### L100.0100, L300.3900, L300.4310 #### [facility] [address] [place], [address] PROTHROMBIN TIME W/INR Collected: 08/11/2017 Status: F Source: [place] 10:29 AM [facility] REPOSITORY TYPE CODE TESTS RESULT OUT OF RANGE REFERENCE UNITS LAB L300.4150 11.7-14.9 SECONDS Normal PROTIME 13.6 LAB L300.4200 Normal INR 1.0 Performed By: #### L100.0100, L300.3900, L300.4310 #### [facility] [address] [place], [address] PARTIAL THROMBOPLAST Collected: 08/11/2017 Status: F Source: [place] TIME 10:29 AM [facility] REPOSITORY TYPE CODE TESTS RESULT OUT OF RANGE REFERENCE UNITS LAB L300.4310 24.1-36.2 Seconds Normal PTT 33.1 Performed By: #### L100.0100, L300.3900, L300.4310 #### [facility] [address], [address] STRESS TEST ECHO W/ Observed: 08/06/2017 Status: F Source: [place] CONTRAST 3:36 PM [facility] REPOSITORY [facility] Cardiovascular Services [address] [place] [address] Stress Test Echo W/Contrast MR#: [id number] Acct: [id number] Name: ERIBERTO GARCIA Morro Rep #: [id number] : 1945 72 From: Elías Bolanos MD Primary Care: Victor M Luke DO Status: REG CLI Ordering Dr: Elías Bolanos MD Sex: M C Reason For Study: Chest Pain Stress Results Protocol: Modified [place] Protocol Maximum Predicted HR: 148 bpm Target HR: 126 bpm% Maximum Pred icted HR: 88 % Heart Stage Duration Rate BPCom ment (mm:ss) (bpm) Definity 2 ML Diluted Given; NTG 0.4 MG SL Given Per Baseline 92 128/ 90Order Prior To Test For BP of 176/120 Modified [facility] Protocol Stage 0 3:00 12 6 158/90 Modified [facility] Protocol Stage 1/2 0:30 13 0 / 2/1 0 Chest Pressure Recovery 96 146/ 90No Chest Pain Stress Duration: 3:30 mm:ss Maximum Stress HR: 130 bpmM ETS: 2 Baseline Echocardiogram Findings The estimated ejection fraction is 60 %. Stress Echo Wall motion Data Resting WMIntermediate WMStress WM Resting Wall Motion Wall Motion Stress No regional wall motion Lateral-Basal: Mildly abnormalities noted. hypokinetic. Infero-Basal: Mildly hypokinetic. EKG Data Normal intervals are noted. Interpretation Summary The study was technically difficult. Contrast injection was performed. Lateral-Basal: Mildly hypokinetic Infero-Basal: Mildly hypokinetic Abnormal, adequate, treadmill echocardiogram. Positive for ischemia by echocardiographic criteria. Positive anginal symptoms noted at peak exercise. Markedly reduced exercise capacity for age. Hypertensive blood pressure response to exercise. 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 Chest pain resolved in recovery. No dynamic EKG changes noted. Final LVEF of 55%. No complications. Patient will be referred for diagnostic coronary angiogram. Ordering Physician: Elías Bolanos Referring Physician: Elías Bolanos Performed By: Maida Gómez RDCS 08/06/17 1536 Date Elías Bolanos MD CC: Elías Bolanos MD; Victor M Luke DO Date Dictated: 08/06/17 1409 Date Transcribed: 08/06/17 1536 Early Breastfeeding Care Specialist: Signed ECHOCARDIOGRAM COMPLETE Observed: 08/04/2017 Status: F Source: [place] 5:14 PM [facility] REPOSITORY [facility] Cardiovascular Services [address] [place] [address] Echo Complete 08/04/17 1430 MR#: [id number] Acct: [id number] Name: ERIBERTO GARCIA Rep #: [id number] : 1945 72 From: Elías Bolanos MD Attending Dr: Elías Bolanos MD Status: REG CLI Ordering Dr: Elías Bolanos MD Date: 08/04/17 Location: [facility] Sex: M C Admitted: Reason For Study: CAD/ASHD Procedure This was a 2D Doppler, Color Flow transthoracic echocardiogram. The study was technically difficult. Exam performed in department. Left Ventricle Normal size and thickness. The estimated ejection fraction is 65 %. Stage 1 diastolic dysfunction. No regional wall motion abnormalities noted. Right Ventricle Normal size and thickness. Normal systolic function. Atria Normal left atrium. Normal right atrium. Normal atrial septum. Mitral Valve The mitral valve is structurally normal. No prolapse or stenosis seen. Trivial mitral valve insufficiency. Tricuspid Valve Normal tricuspid valve. Trivial tricuspid valve insufficiency. Right ventricular systolic pressure estimated to be 30 mmHg. Aortic Valve Trisinus/trileaflet aortic valve. Mild focal aortic valve thickening. Pulmonic Valve Normal pulmonic valve. Great Vessels Normal aortic root. Normal arch. Normal inferior vena cava. Inferior vena cava collapse with sniff. Pericardium/Pleural No pericardial effusion. MMode/2D Measurements AND Calculations LVIDd: 4.7 cm IVSd: 1.1 cm Ao root diam: 3.3 cm LVIDs: 3.1 cm LVPWd: 1.1 cm LA dimension: 3.5 cm RVDd: 3.0 cm FS: 34.5 % LAV(MOD-bp): 37.7 ml LA A4 area: 15.4 cm2 RA A4 area: 14.0 cm2 LAV(MOD-bp) Indexed: 17.7 ml/m2 LAV(MOD-sp2): 32.6 ml LAV(MOD-sp4): 43.7 ml Time Measurements MV dec time: 0.30 sec Doppler Measurements AND Calculations MV E max jong: 44.4 cm/sec Lat Peak E' Jong: 9.2 cm/sec Med Peak E' Jong: 5.7 cm/sec MV A max jong: 60.4 cm/sec E/E' lat: 4.8 E/E' med: 7.7 MV E/A: 0.74 Ao V2 max: 120.0 cm/sec LV V1 max: 94.0 cm/sec PA V2 max: 116.3 cm/sec Ao max P.8 mmHg LV V1 max P.5 mmHg TR max jong: 250.2 cm/sec TR max P.0 mmHg Interpretation Summary The estimated ejection fraction is 65 %. Stage 1 diastolic dysfunction. Trivial mitral valve insufficiency. Trivial tricuspid valve insufficiency. Right ventricular systolic pressure estimated to be 30 mmHg. Compared to echo report dated 08/17/2009, no appreciable chages noted. Ordering Physician: Elías Bolanos Referring Physician: Victor M Luke Performed By: Treva Black, DRU, RVT 08/04/17 971 Date Elías Bolanos MD CC: Elías Bolanos MD; Victor M Luke DO Date Dictated: 08/04/17 1430 Date Transcribed: 08/04/171713 Early Breastfeeding Care Specialist: Signed 12 LEAD ELECTROCARDIOGRAM Observed: 08/03/2017 Status: F Source: [place] 1:28 PM [facility] Cardiovascular Services [address] [place] [id number] 12 Lead EKG 08/01/171715 MR#: [id number] Acct: [id number] Name: ERIBERTO GARCIA Rep #: [id number] : 1945 72 From: Marcin Araujo MD Attending Dr: Status: DEP ER Ordering Dr: Rasheed Canela MD Date: 08/01/17 Location: ED Sex: M C Admitted: Test Reason : REPEAT Blood Pressure : / mmHG Vent. Rate : 085 BPM Atrial Rate : 085 BPM P-R Int : 154 ms QRS Dur : 086 ms QT Int : 364 ms P-R-T Axes : 070 069 048 degrees QTc Int : 433 ms Normal sinus rhythm Normal ECG Confirmed by MARCIN ARAUJO MD ([id number]), make up editor MARLENY SIMENTAL ([id number]) on 08/03/2017 1:28:00 PM Referred By: JIE Confirmed By:MARCIN ARAUJO MD 08/03/17 1328 Date Marcin Araujo MD CC: Victor M Canela MD Signed 12 LEAD ELECTROCARDIOGRAM Observed: 08/03/2017 Status: F Source: [place] 1:27 PM [facility] Cardiovascular Services [address] [place] [address] 12 Lead EKG 08/01/17 1529 MR#: [id number] Acct: [id number] Name: ERIBERTO GARCIA Morro Rep #: [id number] : 1945 72 From: Marcin Araujo MD Attending Dr: Status: DEP ER Ordering Dr: Rasheed Canela MD Date: 08/01/17 Location: ED Sex: M C Admitted: Test Reason : CP Blood Pressure : / mmHG Vent. Rate : 106 BPM Atrial Rate : 106 BPM P-R Int : 150 ms QRS Dur : 080 ms QT Int : 336 ms P-R-T Axes : 078 085 067 degrees QTc Int : 446 ms Sinus tachycardia Otherwise normal ECG Confirmed by MARCIN ARAUJO MD ([id number]), make up editor MARLENY SIMENTAL ([id number]) on 08/03/2017 1:27:49 PM Referred By: ELI Confirmed By:MARCIN ARAUJO MD 08/03/17 1327 Date Marcin Araujo MD CC: Victor M Canela MD Signed EMERGENCY DEPARTMENT Observed: 08/01/2017 Status: F Source: [place] SUMMARY 7:42 PM [facility] Medical Records Department [address] [place] [address] Emergency Department Summary 08/01/17 193 MR#: [id number] Acct: [id number] Name: ERIBERTO GARCIA Rep #: [id number] : 1945 72 From: Rasheed Canela MD PCP: Victor M Luke DO Status: REG ER - ER Visit Summary Date of Service: 08/01/17 Chief Complaint: Cramping right-sided abdominal pain and migratory chest pain History of Present Illness: The patient is a 72 M who presents with right-sided cramping pain as well as chest pain. Chest pain was initially left-sided and described as sharp lasting seconds to minutes. The pain then went to the right side and back to the left and complained of numbness left upper extremity. He had no other symptoms. Prior to him having any chest pain or abdominal pain he had diaphoresis. This occurred 1 hour prior to the abdominal or chest pain. He does have history coronary disease. He states his pain was sharp with the coronary pain. He has never had a cardiac catheterization at this facility and there are no records of stress test at this facility. He states he is scheduled to have an outpatient stress test that was ordered by Dr. Alberto Bolanos. He denies fever, chills night sweats. Denies any ocular, auditory or visual symptoms. He denies palpitations, rapid heartbeat. He denies shortness of breath, cough, dyspnea on exertion or orthopnea. His abdominal pain is colicky right- sided. He is status post cholecystectomy. He has no other GI symptoms. He denies any urologic symptoms and there is no history of renal ureterolithiasis. He denies myalgias arthralgias or back pain. He has no other complaints please read written note Past history of coronary disease with 5 stents, type 2 diabetes, hypertension, hypercholesterolemia and end-stage renal disease (stage III) and obesity. Per old records he has history of TIA. Past surgical history remarkable for cholecystectomy, tonsillectomy, herniorrhaphy and prostatectomy. Physical Examination: Elderly gentleman who does not appear in any significant distress. HEENT exam is unremarkable. Heart is regular without murmur, gallop or rub. Lungs are clear to auscultation. He has good movement bilaterally. Abdomen is soft nontender slightly distended with increased bowel sounds and mild tympana. He has a small reducible umbilical hernia. There is no evidence of inguinal hernia. There is no inguinal lymphadenopathy. He has no CVA tenderness noted. Neuro exam is nonfocal. Daughter was concerned that he had a rash. He does have a rash as well as dry scaly skin. There is no hives and this is located near the hairline/right side of the forehead. The rash does chelsea. Test Results: EKG #1, 2 and 3 are all normal. Troponin #1 and troponin #2 3 hours later is normal with a delta of 0. BMP is remarkable for glucose of 112 and creatinine of 2.04 with a GFR of 34. CBC is normal. Abdominal series obtained because of his abdominal pain with distention and reveals a nonsevere gas pattern with hardware noted secondary to cervical fusion. Cardiac silhouette and mediastinum are normal. There is air-fluid levels however there is no distention or edema to the small bowel wall. And there is gas noted throughout the intestine. Emergency Department Course and Treatment: Evaluate patient's abdominal pain because of distention and slight temp and abdominal series was obtained. To evaluate his chest pain with history of coronary disease and multiple medical problems EKG was obtained. EKG was obtained when he had pain as well as a 3 hour EKG. He also had a troponin with a delta 3 hour troponin. He initially received morphine for his colicky abdominal pain. He did receive 1 nitro for his chest pain as well as Bentyl. He and his daughter been told the etiology of his abdominal pain is uncertain and because of his chest pain is unknown as well. Treatment Plan: Keep appointment with Dr. Bolanos and outpatient stress test. Disposition: Discharged to home Impression: 1. Colicky right-sided abdominal pain of unknown etiology 2. Intermittent sharp chest pain of unknown etiology 3. History of coronary disease 4. History of diabetes, hypertension hypercholesterolemia 5. History of end-stage renal disease, stage III This note was generated with [facility] dictation software. It may contain incorrect words, spelling, and punctuation that were not noted in review of the chart prior to signing ED Disposition - Plan for ED Patient: Disposition: Home or Assisted Living Chief Complaint: Chest Pain Instructions: ED Chest Pain Atypical Unkn Cause, ED Abdominal Pain Unkn Cause Male Prescriptions: Dicyclomine HCl [Bentyl] 20 mg PO ACHS #10 cap Referrals: Victor M Luke DO [Primary Care Provider] - Kalee Bolanos MD [[facility]] - Keep Hunter appointment What to do if you have Problems For any increased pain, shortness of breath, bleeding, nausea or vomiting, chest pain, or any unexpected problems, contact your Primary Care Provider. Call [facility] ([phone]) or report to the closest Emergency Room. Call 911 if necessary. 08/01/171941 <Electronically signed by Rasheed Canela MD> Date Rasheed Canela MD Cosigner Signature (If Indicated): Date CC: Elías Bolanos MD; Victor M Luke DO TROPONIN-I Collected: 08/01/2017 Status: F Source: [place] 6:40 PM [facility] REPOSITORY Order Comment: Comments: Should be drawn 2H after initial Troponin obtained 'TROP' Serial specimen #1, #2, #3, or #4: 2 TYPE CODE TESTS RESULT OUT OF RANGE REFERENCE UNITS LAB L501.4010 <0.06 ng/mL Normal < 0.02 TROPONIN-I Result Comment: TROPONIN-I EXPECTED VALUES <0.05 NEGATIVE 0.06 - 0.59 AT RISK OF ME > OR = 0.60 SUGGEST ME Performed By: #### L501.4010 #### [facility] [address] [facility] [place], [address] URINALYSIS, COMPLETE Collected: 08/01/2017 Status: F Source: [place] 4:30 PM [facility] REPOSITORY Order Comment: Order Date: 08/01/17 How was Urine Obtained? CLEAN CATCH TYPE CODE TESTS RESULT OUT OF RANGE REFERENCE UNITS LAB L400.3000 Yellow COLOR Normal Straw LAB L400.3050 Clear Normal CLARITY Sl. Cloudy LAB L400.3200 Normal mg/dl Normal GLUCOSE, UR Normal LAB L400.3300 Negative mg/dL Normal BILIRUBIN URINE Negative LAB L400.3400 Negative mg/dl Normal KETONE UR Negative LAB L400.3465 1.002-1.030 Normal SP.GR. DIPSTX 1.015 LAB L400.3550 5.0 - 8.0 pH UR Normal 5.0 LAB L400.3600 Negative mg/dl PROT Normal DIPSTX Negative LAB L400.3700 Normal mg/dl Normal UROBILI Normal LAB L400.3750 Negative Normal NITRITE UR Negative LAB L400.3780 Negative /ul Normal OCCULT BLOOD-UR Negative LAB L400.3800 Negative /ul LEUK Normal ESTERASE Negative LAB L400.4050 0-5 /hpf WBC 0 Normal SEEN LAB L400.4100 0-5 /hpf 0 Normal RBC-UA SEEN LAB L400.4150 0-5 /hpf SQUAM Normal EPI 0-5 SEEN LAB L400.4300 None Seen /hpf 0 Normal BACTERIA SEEN LAB L400.4350 <or=2+ /hpf 0 Normal MUCUS, URINE SEEN Performed By: #### L400.0001 #### [facility] [address] [place], [address] ACUTE ABDOMEN INC Observed: 08/01/2017 Status: F Source: [place] CHEST 3:49 PM [facility]ORY [facility] Imaging Services [address] [place] [address] Acute Abdomen Inc Chest MR#: [id number] Acct: [id number] Name: ERIBERTO GARCIA Rep #: [id number] : 1945 M 72 From: Carlton Gordon DO PCP: Victor M Luke DO Status: REG ER Study: Acute Abdomen Inc Chest Date of Exam: 08/01/17 Exam# [id number] Ordering Dr: Rasheed Canela MD STUDY: X-RAY - ACUTE ABDOMINAL SERIES REASON FOR EXAM: Male, 72 years old. Abdominal cramping and chest pain TECHNIQUE: Single view of the chest. Supine, and erect view(s) of the abdomen were obtained. COMPARISON: Chest x-ray dated 07/07/2017 FINDINGS: Lungs are mildly hypoinflated. Lungs are clear. Normal size heart. Normal mediastinum and melanie. Normal visualized pulmonary arteries. Normal visualized aortic arch and descending thoracic aorta. There is a moderate amount of colonic fecal material. Keratocyst in the loops of right hemicolon. No evidence of small bowel obstruction. There are diffuse degenerative changes of the visualized lumbar spine. RAD/Acute Abdomen Inc Chest IMPRESSION: No acute airspace disease. Gaseous distended loops of colon fecal retention. Findings are suggestive of ileus. No evidence of small bowel obstruction. Electronically Signed: Carlton Gordon DO at 16:24 EDT Tel , Service support , CC: Victor M Luke DO; Rasheed Canela MD Early Breastfeeding Care Specialist: Signed CBC W/DIFF, AUTOMATED Collected: 08/01/2017 Status: F Source: [place] 3:35 PM [facility] TYPE CODE TESTS RESULT OUT OF RANGE REFERENCE UNITS LAB L100.1000 4.4-11.0 K/mm3 Normal WBC 7.7 LAB L100.1200 4.6-6.2 M/mm3 Normal RBC 4.95 LAB L100.1300 13.0-16.5 g/dl Normal HGB 14.3 LAB L100.1400 40-54 % Normal HCT 43.9 LAB L100.1500 80-94 fL Normal MCV 88.7 LAB L100.1600 27.0-32.0 pg Normal MCH 28.9 LAB L100.1700 32-36 g/gl Normal MCHC 32.6 LAB L100.1810 11.6-14.6 % Normal RDW CV 14.4 LAB L100.1820 35.1-43.9 fl High RDW SD 46.6 LAB L100.1900 150-450 K/mm3 Normal PLT 183 LAB L100.2000 6.2-12.0 fl Normal MPV 11.9 LAB L100.2100 47-70 % Normal NEUT% 60.2 LAB L100.2200 19-41 % Normal LY% 28.1 LAB L100.2300 0-10 % High MONO% 10.5 LAB L100.2400 0-5 % Normal EO% 0.8 LAB L100.2500 0-1 % Normal BASO% 0.1 LAB L100.2550 0.0-0.9 % Normal IM GRAN % 0.300 Result Comment: IG% - Immature Granulocytes (promyelocytes, myelocytes and metamyelocytes) > 1% indicates that a LEFT SHIFT is Present. LAB L100.2620 2.0-7.7 X10 3/uL Normal Absolute Neut 4.6 LAB L100.2720 0.83-4.51 X10 3/ul Normal Absolute Lymph 2.15 Performed By: #### L100.0100 #### [facility] [address] [place], [place], [address] BASIC METABOLIC Collected: 08/01/2017 Status: F Source: [place] PROFILE (BMP) 3:35 PM [facility] RE[facility] Order Comment: 'TROP' Serial specimen #1, #2, #3, or #4: 1 TYPE CODE TESTS RESULT OUT OF RANGE REFERENCE UNITS LAB L501.0100 74-106 mg/dL High GLU 112 Result Comment: Fasting Glucose result from 100 to 125 mg/dL suggests IMPAIRED HOMEOSTASIS per A.D.A. criteria. Please note revised GLUCOSE reference range effective 2017. LAB L501.1000 7-18 mg/dL High BUN 20 LAB L501.1100 0.70-1.30 mg/dL High CREAT,SERUM 2.04 Result Comment: The validity of the calculated GFR AND GFRAA in patients over 70 years has not been determined. Clinical correlation is essential. LAB L501.1110 >60 mL/min Low EST GFR 34 Result Comment: Non- GFR Calc LAB L501.1115 >60 mL/min Low EST GFR - AA 42 Result Comment: GFR Calc LAB L501.1255 ml/min Normal Estimated CRCL 30.60 LAB L501.1300 10-20 RATIO Low BUN/CRE 9.8 LAB L501.2200 8.5-10 mg/dL Low .1 CA 8.4 LAB L501.5300 136-14 mmol/L Normal 5 NA 141 LAB L501.5600 3.5-5. mmol/L Normal 1 K 4.3 LAB L501.5900 98-107 mmol/L Normal CL 105 LAB L501.6100 21.0-3 mmol/L Normal 2.0 CO2 28.0 LAB L501.6200 5-15 Normal GAP 8 Performed By: #### L500.2500, L501.4010 #### [facility] [address] [place], [address] TROPONIN-I Collected: 08/01/2017 Status: F Source: [place] 3:35 PM [facility] Order Comment: 'TROP' Serial specimen #1, #2, #3, or #4: 1 TYPE CODE TESTS RESULT OUT OF RANGE REFERENCE UNITS LAB L501.4010 <0.06 ng/mL Normal < 0.02 TROPONIN-I Result Comment: TROPONIN-I EXPECTED VALUES <0.05 NEGATIVE 0.06 - 0.59 AT RISK OF ME > OR = 0.60 SUGGEST ME Performed By: #### L500.2500, L501.4010 #### [facility] [address] [place], [place], [address] BASIC METABOLIC Collected: 07/23/2017 Status: F Source: [place] PROFILE (BMP) 11:34 AM [facility] TYPE CODE TESTS RESULT OUT OF RANGE REFERENCE UNITS LAB L501.0100 74-106 mg/dL High GLU 128 Result Comment: Fasting Glucose result greater than or equal to 126 mg/dL suggests DIABETES MELLITUS per A.D.A. criteria. Please note revised GLUCOSE reference range effective 2017. LAB L501.1000 7-18 mg/dL Normal BUN 17 LAB L501.1100 0.70-1.30 mg/dL Normal CREAT,SERUM 1.13 Result Comment: The validity of the calculated GFR AND GFRAA in patients over 70 years has not been determined. Clinical correlation is essential. LAB L501.1110 >60 mL/min Normal EST GFR 68 Result Comment: Non- GFR Calc LAB L501.1115 >60 mL/min Normal EST GFR - AA 82 Result Comment: GFR Calc LAB L501.1300 10-20 RATIO Normal BUN/CRE 15.0 LAB L501.2200 8.5-10.1 mg/dL CA Normal 9.1 LAB L501.5300 136-145 mmol/L NA Normal 139 LAB L501.5600 3.5-5.1 mmol/L K Normal 4.2 LAB L501.5900 98-107 mmol/L CL Normal 105 LAB L501.6100 21.0-32.0 mmol/L Normal CO2 24.0 LAB L501.6200 5-15 Normal GAP 10 Performed By: #### L500.2500 #### [facility] [address] [place], [address] CARDIOLOGY VISIT Observed: 07/22/2017 Status: F Source: [place] REPORT 12:02 PM [facility] [address] [place] [address] OFFICE VISIT Date of Service: 07/22/17 MR#: [id number] Acct: [id number] Name: ERIBERTO GARCIA Rep #: [id number] : 1945 Provider: Elías Bolanos MD Age/Sex: 71/M Location[place] [facility] Status: Signed HPI HPI Chief Complaint: Est. of cardiac care Details: ERIBERTO GARCIA, is a 71 M with a history of diabetes, hypertension, hypercholesterolemia, previous smoker who quit around 25 years ago after a [id number] smoking history, previous coronary artery disease status post angioplasty and stenting to his right coronary artery as early as 2005. 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 Patient has had several doctors in the past including Dr. Eladio Cardozo, Dr. Loyd, Dr. Faye cassette [facility]. He most recently underwent diagnostic coronary angiogram on 10/15/16 at [facility] for recurring substernal chest pain. At that time it was described as luminal irregularities of his left main of 10%, a tubular 25% proximal LAD stenosis, luminal irregularities of his first diagonal, proximal RCA, and widely patent stents. His EF was normal at that time. His most recent echocardiogram dated 09/04/16 demonstrated normal LV function and sclerotic nonstenotic aortic valve. The patient has tried Ranexa in the past which did not work, and he underwent EECP therapy which initially helped, and repeat ECP did not help his chest pain symptoms. The patient is now here for a second opinion, and describes progressively worsening substernal chest pain, mostly at rest and with laying down but occasionally occurs after he chops wood. He describes this as a chest heaviness, similar to his previous angina, with associated shortness of breath but no diaphoresis. In addition the patient has had episodes of dizziness with getting up with blood pressure of 90/60, which have been normalized. In addition he complains of diffuse myalgias which been going on for the past several years. He is currently on Lipitor 80 mg a day. His gallbladder has been removed, and he has never been told he had a hiatal hernia. He was evaluated with PFTs several years ago but nothing recently. In our office today's blood pressure is 140/94, and pulse is 112 and regular. His physical exam demonstrates no reproducible chest pain, clear lungs bilaterally, regular rate and rhythm, normal S1/S2. No S3-S4. No murmurs are detected. No edema noted. EKG dated 10/15/16 demonstrated normal sinus rhythm with old inferior wall myocardial infarction, no acute changes. His EKG today demonstrates normal sinus rhythm, normal axis, normal intervals, possible old inferior wall myocardial infarction, no acute changes noted. Intake Vital Signs07/22/17 Height 5 ft 9 in Intake Visit Reasons: PCP ref'd, Hx CAD and stents Allergies No Known Allergies Allergy (Verified 07/22/17 10:54) Medications Aspirin E.C. [Ecotrin] 81 mg PO DAILY@0800 01/21/17 [History Confirmed 07/22/17] Atorvastatin Calcium [Lipitor] 80 mg PO QHS 01/21/17 [History Confirmed 07/22/17] Cholecalciferol (Vitamin D3) [Vitamin D3] 2,000 unit PO DAILY 01/21/17 [History Confirmed 07/22/17] Clopidogrel Bisulfate [Clopidogrel] 75 mg PO DAILY 01/21/17 [History Confirmed 07/22/17] Cyanocobalamin (Vitamin B-12) [Vitamin B-12] 1,000 mcg PO DAILY 01/21/17 [History Confirmed 07/22/17] Furosemide [Lasix] 80 mg PO DAILY 01/21/17 [History Confirmed 07/22/17] Isosorbide Mononitrate [Imdur] 120 mg PO DAILY 01/21/17 [History Confirmed 07/22/17] Magnesium Oxide [Magnesium] 400 mg PO DAILY 01/21/17 [History Confirmed 07/22/17] Nitroglycerin [Nitrostat] 0.3 mg SL UD PRN 01/21/17 [History Confirmed 07/22/17] Pantoprazole Sodium [Protonix] 40 mg PO BID 01/21/17 [History Confirmed 07/22/17] Spironolactone [Aldactone] 50 mg PO DAILY 01/21/17 [History Confirmed 07/22/17] Venlafaxine HCl [Venlafaxine HCl ER] 150 mg PO DAILY 01/21/17 [History Confirmed 07/22/17] glimepiride 1 mg tablet 1 mg PO QAM 07/21/17 [History Confirmed 07/22/17] metoprolol tartrate 50 mg tablet 50 mg PO BID 07/22/17 [History Confirmed 07/22/17] potassium chloride ER 20 mEq tablet,extended release 60 meq PO BID tab 07/22/17 [History Confirmed 07/22/17] PFSH Social History Smoking Status: Former smoker quit date: 05/03/98 pack-years: 50 ROS Const Const: Positive for weakness and fatigue; negative for difficulty sleeping, frequent falls, headache(s) or excessive sweating Eyes Eyes: Negative for loss of peripheral vision, transient loss of vision, blurry vision or double vision ENT ENT: Negative for Nosebleed/epistaxis, balance problems, dizziness or headache(s) Cardio Chest Pain: Yes Frequency: daily, weekly Character: tightness, squeezing Onset: at rest, exercise Location: left chest, epigastric, other (RUQ) Duration: minutes Exacerbation: activity, rest Relieving: activity, rest Edema: None Muscle aches with walking: None Resp Respiratory: Positive for SOB with activity; negative for SOB at rest, SOB orthopnea\SOB lying down or paroxysmal nocturnal dyspnea GI GI: Negative nausea or heartburn : Negative for hematuria Musc Musc: Negative for muscle aches/ myalgia, muscle weakness, joint pain or balance problems Skin Skin: Negative non-healing lesions, unusual bruising or rash Neuro Neuro: Positive for lightheadedness, other (Right facial numbness) and weakness; negative for blurry vision, dizziness, orthostatic symptoms, double vision, frequent falls or headache(s) Gil Hematologic/Lymphatic: Negative for easy bruising Endo Endo: Positive for fatigue; negative for excessive sweating or increased thirst/drinking Psych Psych: Negative for anxiety or depression Allergy Allergy/Immunology: Negative for hives, Negative for rash Cardiology Exam Const Appearance: cooperative, healthy appearing and no acute distress Nutritional Appearance: well nourished Orientation: alert, oriented x3 and oriented to person Head Head: normal to inspection, atraumatic and normocephalic Nose: external nose normal Face and Sinus: face symmetric Mouth: oral mucosae normal Eyes General: appearance normal, both eyes and all related structures Eyelids: eyelids normal Conjunctivae: conjunctivae normal Pupils: PERRL and normal by confrontation EOM: EOM intact bilaterally Neck Neck: normal visual inspection and full ROM Carotids: normal carotid upstroke Chest Chest inspection: normal inspection of the chest Auscultation: Bilateral: Clear to Auscultation Cardio Palpation: normal PMI Rate: regular rate Rhythm: regular rhythm Heart sounds: S1 normal and S2 normal GI GI: normal to inspection, no hepatosplenomegaly and bowel sounds present Neuro General: alert, oriented x3, awake, CN's II-XI intact bilaterally and moves all extremities Skin Skin: no rashes or lesions noted Extremities Pulses: Normal: Right Femoral Pulse, Left Femoral Pulse, Right Dorsalis Pedis Pulse, Left Dorsalis Pedis Pulse, Right Posterior Tibial Pulse, Left Posterior Tibial Pulse, Right Radial Pulse, Left Radial Pulse Lower Extremity Edema: None: Bilateral Psych Psychological: normal affect Assessment AND Plan 1. 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 Coronary artery disease: Patient complains of exertional chest pain as well as dyspnea on exertion although some of his symptoms are somewhat atypical. Patient has been very frustrated with his cardiac workup in the past although he does have true organic disease. I am concerned mostly about his anomalous left circumflex which had previously been noted to be 95% stenosis and apparently underwent balloon angioplasty in the past. Patient is uncertain whether he has had angioplasty of this vessel. I recommended the patient continue his baby aspirin, Plavix, Imdur, Lasix, metoprolol, spironolactone and potassium. In addition I have advised the patient that he should undergo a treadmill echocardiogram to determine his blood pressure response to exercise, evaluate for possible inferior posterior lateral wall ischemia, as well as to assess for chest pain. If this is grossly abnormal, the patient may require diagnostic coronary angiogram. In addition I recommend he undergo a 2D echo with Doppler to determine if he has had any deterioration of his LV function since October 2016 at which time his LV function was normal. Orders Orders: 2. 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 Previous stents: Continue aspirin Plavix beta jeffrey and Imdur. I advised the patient that if he were to have recurrent chest pain unrelieved with 3 sublingual nitroglycerin every 5 minutes apart that he is to call the squad and come to [facility] ER. Orders Orders: 3. Hyperlipidemia E78.5 Plan 3. Hyperlipidemia: The patient complains of diffuse myalgias which may be related to his high-dose Lipitor. Recommend that he hold his Lipitor for 3 weeks time to determine if this improves his diffuse myalgias. If the patient's myalgias improve, I would consider switching him from statins to gemfibrozil 600 mg p.o. twice daily with a repeat lipid profile in 6 weeks time. Orders Orders: 4. Hypertension I10 Plan 4. Hypertension: I am concerned the patient's shortness of breath may be related to undiagnosed COPD: I recommended the patient undergo full pulmonary function test to determine if he requires pulmonary consultation to assist with his dyspnea on exertion. I advised the patient to avoid heavy lifting and heavy activities until we have evaluated his court cardiopulmonary system. 5. Return office in 1 month in 6 months. Thank you very much for the opportunity to place. The cardiac area patient. This note was generated using a voice recognition system and there may be incorrect words, spelling or punctuation that were not noted when reviewing the office note prior to saving. Orders Orders: Plan Detail Other Orders Orders: Follow Up +6m (Ishan) +1m (Ishan) Coding Level of Care Code Off vis,new,level 4 Diagnoses Atherosclerotic heart disease [place] coronary artery w/angina pectoris I25.119 History of coronary artery stent placement Z95.5 Hyperlipidemia E78.5 Hypertension I10 Coding Level of Care Code Off vis,new,level 4 Diagnoses Atherosclerotic heart disease [place] coronary artery w/angina pectoris I25.119 History of coronary artery stent placement Z95.5 Hyperlipidemia E78.5 Hypertension I10 07/22/17 1202 <Electronically signed by Elías Bolanos MD> Date [facility]ías [facility]anos MD [facility] Signature: Date (if applicable) CC: 12 LEAD EKG PERFORMED Observed: 07/22/2017 Status: F Source[place] [facility] [place]:03 AM [facility] REPOSITORY [facility] [address] [place] [address] 12 Lead EKG performed by [facility] 07/22/171100 MR#: [id number] Acct: [id number] Name: ERIBERTO GARCIA Rep #: [id number] : 1945 71 From: Elías Bolanos MD Attending Dr: Elías Bolanos MD Status: DEP [facility] Ordering Dr: Elías Bolanos MD Date: 07/22/17 [place] [facility] [place]: M C Ad[place]: [facility]12 Lead EKG performed by [facility] ECG Report Interpretation Sinus Rhythm - occasional PAC # PACs = 1.-Old inferior infarct. ABNORMAL Electronically signed on 09/13/2017 at 09:18 by Elías Bolanos 09/13/17920 Date Elías Bolanos MD CC: Victor M Luke DO Date Dictated: 07/22/171100 Date Transcribed: 07/22/17 110 Early Breastfeeding Care Specialist: Signed CHEST PA AND LATERAL Observed: 07/07/2017 Status: F Source: [place] 1:46 PM [facility] REPOSITORY [facility] Imaging Services [address] [place] [address] Chest PA and Lateral MR#: [id number] Acct: [id number] Name: ERIBERTO GARCIA Rep #: [id number] : 1945 M 71 From: Joseph Kaur MD PCP: Victor M Luke DO Status: REG CLI Study: Chest PA and Lateral Date of Exam: 07/07/17 Exam# [id number] Ordering Dr: Victor M Luke DO STUDY: X-RAY CHEST REASON FOR EXAM: Male, 71 years old. Cough TECHNIQUE: Frontal and lateral views of the chest COMPARISON: 01/20/2017 FINDINGS: The lungs are clear. There are no pleural effusions. There is no pneumothorax. The heart is normal in size. There are stable postsurgical changes noted in the cervical spine. RAD/Chest PA and Lateral IMPRESSION: No acute thoracic pathology. Electronically Signed: Joseph Kaur, at 19:53 EST Tel , Service support , CC: Victor M Luke DO Early Breastfeeding Care Specialist: Signed BASIC METABOLIC Collected: 05/26/2017 Status: F Source: [place] PROFILE (BMP) 11:34 AM [facility] REPOSITORY Order Comment: 'TROP' Serial specimen #1, #2, #3, or #4: 1 TYPE CODE TESTS RESULT OUT OF RANGE REFERENCE UNITS LAB L501.0100 70-110 mg/dL High GLU 183 Result Comment: Fasting Glucose result greater than or equal to 126 mg/dL suggests DIABETES MELLITUS per A.D.A. criteria. LAB L501.1000 7-18 mg/dL Normal BUN 15 LAB L501.1100 0.70-1.30 mg/dL Normal CREAT,SERUM 1.28 Result Comment: The validity of the calculated GFR AND GFRAA in patients over 70 years has not been determined. Clinical correlation is essential. LAB L501.1110 >60 mL/min Low EST GFR 59 Result Comment: Non- GFR Calc LAB L501.1115 >60 mL/min Normal EST GFR - AA 71 Result Comment: GFR Calc LAB L501.1300 10-20 RATIO Normal BUN/CRE 11.7 LAB L501.2200 8.5-10.1 mg/dL CA Normal 8.7 LAB L501.5300 136-145 mmol/L NA Normal 139 LAB L501.5600 3.5-5.1 mmol/L K Normal 4.3 LAB L501.5900 98-107 mmol/L CL Normal 106 LAB L501.6100 21.0-32.0 mmol/L Normal CO2 23.0 LAB L501.6200 5-15 Normal GAP 10 Performed By: #### L500.2500, L501.4010, L501.5200 #### [facility] [address] [place], [address] TROPONIN-I Collected: 05/26/2017 Status: F Source: [place] 11:34 [facility] REPOSITORY Order Comment: 'TROP' Serial specimen #1, #2, #3, or #4: 1 TYPE CODE TESTS RESULT OUT OF RANGE REFERENCE UNITS LAB L501.4010 <0.06 ng/mL Normal < 0.02 TROPONIN-I Result Comment: TROPONIN-I EXPECTED VALUES <0.05 NEGATIVE 0.06 - 0.59 AT RISK OF ME > OR = 0.60 SUGGEST ME Performed By: #### L500.2500, L501.4010, L501.5200 #### [facility] [address] [place], [place], [address] MAGNESIUM Collected: 05/26/2017 Status: F Source: [place] 11:34 [facility] REPOSITORY Order Comment: 'TROP' Serial specimen #1, #2, #3, or #4: 1 TYPE CODE TESTS RESULT OUT OF RANGE REFERENCE UNITS LAB L501.5200 1.6-2.6 mg/dL Normal MG 1.9 Result Comment: Please note revised Magnesium reference range effective 2017. Performed By: #### L500.2500, L501.4010, L501.5200 #### [facility] [address] [place], [place], [address] ALLERGIES ALLERGIES DATE TYPE / CODE NAME / CODE REACTION SEVERITY SOURCE 04/12/2018 Drug No Known Unknown [facility] Allergy/4160 [facility](SNOMED 8525827(RXNOR Repository CT) M) ENCOUNTERS ENCOUNTERS ADMIT/DISCHARGE ACCOUNT ADMITTING ENCOUNTER LOCATION SOURCE NUMBER CLASS 04/13/2018 [id number] Ambulatory BMSBuilding:W [place] 4 [facility] Repository 04/12/2018/ [id number] [place], Ambulatory [place] 8 4 [facility] ing:PCURoom: Repository [id number]: 1 04/12/2018 [id number] [place], Ambulatory BMSBuilding:B [place] 6 [place] Repository 04/12/2018 [id number] [place], Ambulatory BMSBuilding:B [place] 6 [place] Repository 03/14/2018 [id number] Ambulatory [place] 5 [facility] ing:CT Repository 03/07/2018 [id number] Ambulatory BMSBuilding:B [place] 1 [place].[facility] Repository 01/31/2018 [id number] Ambulatory [place] 1 [facility] ing:MTRAD Repository 01/21/2018/ [id number] Ambulatory BMSBuilding:B [place] 8 1 [facility] Repository 12/22/2017 [id number] Ambulatory [place] 6 [facility] ing:LAB.FUTUR Repository E 12/17/2017 [id number] Ambulatory [place] 1 [facility] ing:CVS Repository 12/02/2017 [id number] Ambulatory [place] 3 [facility] ing:CVS Repository 11/30/2017/ [id number] [place] Ambulatory [place] 8 8 [facility] ing:PCURoom: Repository [id number]: 1 11/30/2017 [id number] [place] Ambulatory BMSBuilding:B [place] 5 [place] Repository 11/30/2017 [id number] [place] Ambulatory BMSBuilding:B [place] 7 [place] Repository 11/30/2017 [id number] [place] Ambulatory BMSBuilding:B [place] 0 [place].[facility] Repository 11/30/2017/ [id number] Ambulatory BMSBuilding:W [place] 8 9 [facility] Repository 11/30/2017/ [id number] Ambulatory BMSBuilding:W [place] 8 1 [facility] Repository 11/15/2017 [id number] Ambulatory [place] 6 [facility] ing:BFHLAB Repository 11/12/2017 [id number] Ambulatory [place] 5 [facility] ing:LAB.FUTUR Repository E 10/25/2017 [id number] Ambulatory BMSBuilding:B [place] 4 [place] Repository 09/21/2017 [id number] Ambulatory Sanjana [place] 8 [facility] ing:LAB.FUTUR Repository E 09/15/2017/ [id number] Ambulatory BMSBuilding:B [place] 8 7 [facility] Repository 09/07/2017/ [id number] Ambulatory BMSBuilding:B [place] 8 2 [facility] Repository 09/04/2017 [id number] Ambulatory BMSBuilding:W [place] 1 [facility] Repository 09/03/2017/ [id number] Emergency [place] 8 4 [facility] ing:ED Repository 09/03/2017 [id number] Ambulatory [place] 4 [facility] ing:LAB Repository 08/31/2017 [id number] Ambulatory [place] 0 [facility] ing:CR Repository 08/30/2017/ [id number] Ambulatory BMSBuilding:B [place] 8 5 [facility] Repository 08/27/2017/ [id number] Emergency [place] 8 7 [facility] ing:ED Repository 08/26/2017 [id number] Ambulatory [place] 5 [facility] ing:BFHLAB Repository 08/23/2017 [id number] Ambulatory [place] 8 [facility] ing:PSN Repository 08/23/2017 [id number] Ambulatory BMSBuilding:W [place] 7 [facility] Repository 08/14/2017 [id number] Ambulatory BMSBuilding:W [place] 3 [facility] Repository 08/13/2017/ [id number] Ambulatory Sanj[place] 8 9 [facility] ing:CLSP Repository 08/13/2017 [id number] Ambulatory BMSBuilding:B [place] 9 [facility] Repository 08/13/2017 [id number] Ambulatory BMSBuilding:W [place] 9 [facility] Repository 08/06/2017 [id number] Ambulatory [place] 5 [facility] ing:CVS Repository 08/06/2017 [id number] Ambulatory BMSBuilding:W [place] 0 [facility] Repository 08/04/2017 [id number] Ambulatory [place] 3 [facility] Hospital ing:CVS Repository 08/04/2017 [id number] Ambulatory BMSBuilding:W [place] 4 [facility] Repository 08/01/2017/ [id number] Emergency [place] 8 8 [facility] ing:ED Repository 07/23/2017 [id number] Ambulatory [place] 9 [facility] ing:BFHLAB Repository 07/22/2017/ [id number] Ambulatory BMSBuilding:B [place] 8 1 [facility] Repository 07/21/2017 [id number] Ambulatory BMSBuilding:B [place] 5 [facility] Repository 07/07/2017 [id number] Ambulatory [place] 1 [facility] ing:MTRAD Repository 05/26/2017 [id number] Ambulatory [place] 4 [facility] Hospital ing:BFHLAB Repository PAYERS PAYERS ENCOUNTER GUARANTOR PAYER SUBSCRIBER SOURCE 04/13/2018 ERIBERTO D Primary ERIBERTO D [place] [id number] TR Insurance:MEDICARE BODAGERDOB: [address], PART A [facility] [id number] [facility] [address]Nhp: Number: Repository [id number] () Date:2018-04-12 04/13/2018 Secondary ERIBERTO D [place] [facility] BOD[facility]: [facility] Number: [id number] Hospital [id number] Repository Date:6766-54-33XX [facility] [place], [place] [address]MI: 04/13/2018 Tertiary NOT GIVENUNK [place] Insurance:SELF PAY [facility] Number: Effective Repository Date:2018-04-13 04/12/2018 ERIBERTO D Primary ERIBERTO D [place] [id number] TR Insurance:MEDICARE BODAGERDOB: [address] A [facility] [id number] [facility] [address]Xuc: Number: Repository [id number] () Date:2018-04-12 04/12/2018 Secondary ERIBERTO D [place] Insurance:AARPPmedisys health networky [facility] Number: [id number] Hospital [id number] Repository Date:1118-07-80XJ [facility] 400584[place], [place] [address]RK: 04/12/2018 Tertiary NOT GIVENUNK [place] Insurance:SELF PAY [facility] Number: Effective Repository Date:2018-04-12 04/12/2018 ERIBERTO D Primary ERIBERTO D [place] [id number] TR Insurance:MEDICARE BODAGERDOB: [address] A [facility] [id number] [facility] [address]Axj: Number: Repository [id number] () Date:2018-04-12 04/12/2018 Secondary ERIBERTO D [place] [facility]: Community Number: [id number] Hospital [id number] Repository Date:2567-78-34XD [facility] 105454[place], [place] [address]DB: 04/12/2018 Tertiary NOT GIVENUNK [place] Insurance:SELF PAY [facility] Number: Effective Repository Date:2018-04-12 04/12/2018 ERIBERTO D Primary ERIBERTO D [place] [id number] TR Insurance:MEDICARE BODAGERDOB: [address] A [facility] [id number] [facility] [address]Vcp: Number: Repository [id number] () Date:2018-04-12 04/12/2018 Secondary ERIBERTO D [place] Insurance:AARPPolicy BODAGERDOB: Community Number: [id number] Hospital [id number] Repository Date:3208-95-28UN [address], [place] [address]QH: 04/12/2018 Tertiary NOT GIVENUNK [place] Insurance:SELF PAY [facility] Number: Effective Repository Date:2018-04-12 03/14/2018 ERIBERTO D Primary ERIBERTO D [place] [id number] TR Insurance:MEDICARE BODAGERDOB: [address] PART A [facility] [id number] [facility] [address]Gwe: Number: Repository [id number] () Date:2018-03-10 03/14/2018 Secondary ERIBERTO D [place] Insurance:AARPPolicy BODAGERDOB: Community Number: [id number] Hospital [id number] Repository Date:5085-04-78[address]X [address], [place] [address]VV: 03/14/2018 Tertiary NOT GIVENUNK [place] Insurance:SELF PAY [facility] Number: Effective Repository Date:2018-03-10 03/07/2018 ERIBERTO D Primary ERIBERTO D [place] [id number] TR Insurance:MEDICARE BODAGERDOB: [address] PART A [facility] [id number] [facility] [address]Gyv: Number: Repository [id number] () Date:2017-08-30 03/07/2018 Secondary ERIBERTO D [place] Insurance:AARPPolicy BODAGERDOB: Community Number: [id number] Hospital [id number] Repository Date:8378-88-54PR [address], [place] [address]BE: 03/07/2018 Tertiary NOT GIVENUNK [place] Insurance:SELF PAY [facility] Number: Effective Repository Date:2017-11-01 01/31/2018 ERIBERTO D Primary ERIBERTO D [place] [id number] TR Insurance:MEDICARE BODAGERDOB: [address] PART A [facility] [id number] [facility] 15[address]Mfm: Number: Repository [id number] () Date:2018-01-31 01/31/2018 Secondary ERIBERTO D [place] Insurance:AARPPolicy BODAGERDOB: Community Number: [id number] Hospital [id number] Repository Date:9981-06-76SE [facility] [address]70304GDSTKVS, [place] [address]RF: 01/31/2018 Tertiary NOT GIVENUNK [place] Insurance:SELF PAY [facility] Number: Effective Repository Date:2018-01-31 01/21/2018 ERIBERTO D Primary ERIBERTO D [place] [id number] TR Insurance:MEDICARE BODAGERDOB: [address] PART A [facility] [id number] [facility] [address]Lvr: Number: Repository [id number] () Date:2018-01-18 01/21/2018 Secondary ERIBERTO D [place] Insurance:AARPPolicy BODAGERDOB: Community Number: [id number] Hospital [id number] Repository Date:5087-26-29EI [address]FJT, [place] [address]RS: 01/21/2018 Tertiary NOT GIVENUNK [place] Insurance:SELF PAY [facility] Number: Effective Repository Date:2018-01-21 12/22/2017 ERIBERTO D Primary ERIBERTO D [place] [id number] TR Insurance:MEDICARE BODAGERDOB: [address] PART A [facility] [id number] [facility] [address]18[address]Eyj: Number: Repository [id number] () Date:2017-12-08 12/22/2017 Secondary ERIBERTO D [place] Insurance:AARPPolicy BODAGERDOB: Community Number: [id number] Hospital [id number] Repository Date:6452-55-62YZ [facility] 887[place]GP, [place] [address]RL: 12/22/2017 Tertiary NOT GIVENUNK [place] Insurance:SELF PAY [facility] Number: Effective Repository Date:2017-12-08 12/17/2017 ERIBERTO D Primary ERIBERTO D [place] [id number] TR Insurance:MEDICARE BODAGERDOB: Community [address] [place] [address], PART A [facility] [id number] [facility] [address]Bnc: Number: Repository [id number] () Date:2017-12-07 12/17/2017 Secondary ERIBERTO D [place] Insurance:AARPPolicy BODAGERDOB: Community Number: [id number] Hospital [id number] Repository Date:0290-76-43AE [facility] 987044DMMTETM, [place] [address]IV: 12/17/2017 Tertiary NOT GIVENUNK [place] Insurance:SELF PAY [facility] Number: Effective Repository Date:2017-12-07 12/02/2017 ERIBERTO D Primary ERIBERTO D [place] [id number] TR Insurance:MEDICARE BODAGERDOB: [address] PART A [facility] [id number] [facility] [address]Uqn: Number: Repository [id number] () Date:2017-11-25 12/02/2017 Secondary ERIBERTO D [place] Insurance:AARPPolicy BODAGERDOB: Community Number: [id number] Hospital [id number] Repository Date:2490-04-77EP [facility] 473218IUMQOOB, [place] [address]UG: 12/02/2017 Tertiary NOT GIVENUNK [place] Insurance:SELF PAY [facility] Number: Effective Repository Date:2017-11-25 11/30/2017 ERIBERTO D Primary ERIBERTO D [place] [id number] TR Insurance:MEDICARE BODAGERDOB: [address], PART A [facility] [id number] Hospital [place] [address]Bvs: Number: Repository [id number] (HP) Date:2017-11-30 11/30/2017 Secondary ERIBERTO D [place] Insurance:AARPPolicy BODAGERDOB: Community Number: [id number] Hospital [id number] Repository Date:9707-16-87XU [address]JFZFUL, [place] [address]EJ: 11/30/2017 Tertiary NOT GIVENUNK [place] Insurance:SELF PAY [facility] INSURANCENew [facility] Number: Effective Repository Date:2017-11-30 11/30/2017 ERIBERTO D Primary ERIBERTO D [place] [id number] TR Insurance:MEDICARE BODAGERDOB: [address] PART A [facility] [id number] [facility] 185[address]Ezx: Number: Repository [id number] () Date:2017-11-30 11/30/2017 Secondary ERIBERTO D [place] Insurance:AARPPolicy BODAGERDOB: Community Number: [id number] Hospital [id number] Repository Date:0632-54-20TQ [address]XZIRTYJ, [place] [address]WJ: 11/30/2017 Tertiary NOT GIVENUNK [place] Insurance:SELF PAY [facility] Number: Effective Repository Date:2017-11-30 11/30/2017 ERIBERTO D Primary ERIBERTO D [place] [id number] TR Insurance:MEDICARE BODAGERDOB: [address] PART A [facility] [id number] [facility] [address]Cag: Number: Repository [id number] () Date:2017-11-30 11/30/2017 Secondary ERIBERTO D [place] Insurance:AARPPolicy BODAGERDOB: Community Number: [id number] Hospital [id number] Repository Date:0937-07-70RE [facility] 622710[place], [place] [address]XT: 11/30/2017 Tertiary NOT GIVENUNK [place] Insurance:SELF PAY [facility] Number: Effective Repository Date:2017-11-30 11/30/2017 ERIBERTO D Primary ERIBERTO D [place] [id number] TR Insurance:MEDICARE BODAGERDOB: [address] A [facility] [id number] [facility] [address]Fro: Number: Repository [id number] () Date:2017-11-30 11/30/2017 Secondary ERIBERTO D [place] Insurance:AARPPolicy BODAGERDOB: Community Number: [id number] Hospital [id number] Repository Date:8785-60-47BK [address]TWNMGGQ, [place] [address]SQ: 11/30/2017 Tertiary NOT GIVENUNK [place] Insurance:SELF PAY [facility] Number: Effective Repository Date:2017-11-30 11/30/2017 ERIBERTO D Primary ERIBERTO D [place] [id number] TR Insurance:MEDICARE BODAGERDOB: [address] A [facility] [id number] [facility] 23[address]Url: Number: Repository [id number] () Date:2017-11-30 11/30/2017 Secondary ERIBERTO D [place] Insurance:AARPPolicy BODAGERDOB: Community Number: [id number] Hospital [id number] Repository Date:5579-51-68OX [facility] [id number], [place] [address]PB: 11/30/2017 Tertiary NOT GIVENUNK [place] Insurance:SELF PAY [facility] Number: Effective Repository Date:2017-11-30 11/30/2017 ERIBERTO D Primary ERIBERTO D [place] [id number] TR Insurance:MEDICARE BODAGERDOB: [address] A [facility] [id number] [facility] [address]Miv: Number: Repository [id number] () Date:2017-11-30 11/30/2017 Secondary ERIBERTO D Sanjana Insurance:AARPPolicy BODAGERDOB: Community Number: [id number] Hospital [id number] Repository Date:8144-84-41UL [facility] 253348MHJUEYC, [place] [address]HZ: 11/30/2017 Tertiary NOT GIVENUNK Sanjana Insurance:SELF PAY [facility] Number: Effective Repository Date:2017-11-30 11/15/2017 ERIBERTO D Primary ERIBERTO D [place] [id number] TR Insurance:MEDICARE BODAGERDOB: Community [address] [place] [address] PART A [facility] [id number] [facility] [address]Qjo: Number: Repository [id number] (HP) Date:2017-11-15 11/15/2017 Secondary ERIBERTO D [place] Insurance:AARPPolicy BODAGERDOB: Community Number: [id number] Hospital [id number] Repository Date:2112-51-44VR [facility] 782373LFIMNLH, [place] [address]AL: 11/15/2017 Tertiary NOT GIVENUNK Sanjana Insurance:SELF PAY [facility] Number: Effective Repository Date:2017-11-15 11/12/2017 ERIBERTO D Primary ERIBERTO D [place] [id number] TR Insurance:MEDICARE BODAGERDOB: [address] PART A [facility] [id number] [facility] [address]Nzh: Number: Repository [id number] () Date:2017-09-24 11/12/2017 Secondary ERIBERTO D [place] Insurance:AARPPolicy BODAGERDOB: Community Number: [id number] Hospital [id number] Repository Date:2672-44-20QL [address]UEBMVUW, [place] [address]HZ: 11/12/2017 Tertiary NOT GIVENUNK [place] Insurance:SELF PAY [facility] Number: Effective Repository Date:2017-09-24 10/25/2017 ERIBERTO D Primary ERIBERTO D [place] [id number] TR Insurance:MEDICARE BODAGERDOB: [address] PART A [facility] [id number] [facility] [address]Iho: Number: Repository [id number] (HP) Date:2017-09-15 10/25/2017 Secondary ERIBERTO D [place] Insurance:AARPPolicy BODAGERDOB: Community Number: [id number] Hospital [id number] Repository Date:4437-12-75RC [address]KBR, [place] [address]HL: 10/25/2017 Tertiary NOT GIVENUNK [place] Insurance:SELF PAY [facility] Number: Effective Repository Date:2017-10-19 09/21/2017 ERIBERTO D Primary ERIBERTO D [place] [id number] TR Insurance:MEDICARE BODAGERDOB: [address] PART A [facility] [id number] [facility] [address]Cmt: Number: Repository [id number] () Date:2017-09-09 09/21/2017 Secondary ERIBERTO D Sanjana Insurance:AARPPolicy BODAGERDOB: Community Number: [id number] Hospital [id number] Repository Date:1610-16-34FL [address]PWAZW, [place] [address]GG: 09/21/2017 Tertiary NOT GIVENUNK [place] Insurance:SELF PAY [facility] Number: Effective Repository Date:2017-09-09 09/15/2017 ERIBERTO D Primary ERIBERTO D Sanj[place] [id number] TR Insurance:MEDICARE BODAGERDOB: [address] A [facility] [id number] [facility] [address]Ckj: Number: Repository [id number] () Date:2017-09-06 09/15/2017 Secondary ERIBERTO D [place] Insurance:AARPPolicy BODAGERDOB: Community Number: [id number] [facility] [id number] Repository Date:3831-63-93CY [address]LTGMBNK, [place] [address]VN: 09/15/2017 Tertiary NOT GIVENUNK [place] Insurance:SELF PAY [facility] Number: Effective Repository Date:2017-09-13 09/07/2017 ERIBERTO D Primary ERIBERTO D [place] [id number] TR Insurance:MEDICARE BODAGERDOB: [address] A [facility] [id number] [facility] [address]Wxs: Number: Repository [id number] () Date:2017-09-06 09/07/2017 Secondary ERIBERTO D [place] Insurance:AARPPolicy BODAGERDOB: Community Number: [id number] Hospital [id number] Repository Date:9257-57-00EN [address]BGMYCQO, [place] [address]KB: 09/07/2017 Tertiary NOT GIVENUNK [place] Insurance:SELF PAY [facility] Number: Effective Repository Date:2017-09-07 09/04/2017 ERIBERTO D Primary ERIBERTO D Sanj[place] [id number] TR Insurance:MEDICARE BODAGERDOB: [address] A [facility] [id number] [facility] [address]Bqm: Number: Repository [id number] () Date:2017-09-03 09/04/2017 Secondary ERIBERTO D [place] Insurance:AARPPolicy BODAGERDOB: Community Number: [id number] Hospital [id number] Repository Date:0157-74-91RX [address], [place] [address]OQ: 09/04/2017 Tertiary NOT GIVENUNK [place] Insurance:SELF PAY [facility] Number: Effective Repository Date:2017-09-04 09/03/2017 ERIBERTO D Primary ERIBERTO D [place] [id number] TR Insurance:MEDICARE BODAGERDOB: [address] A [facility] [id number] [facility] 10[address]Bkj: Number: Repository [id number] () Date:2017-09-03 09/03/2017 Secondary ERIBERTO D [place] Insurance:AARPPolicy BODAGERDOB: Community Number: [id number] Hospital [id number] Repository Date:9407-79-78ND [facility] 254526BHIGWKM, [place] [address]JZ: 09/03/2017 Tertiary NOT GIVENUNK [place] Insurance:SELF PAY [facility] Number: Effective Repository Date:2017-09-03 09/03/2017 ERIBERTO D Primary ERIBERTO D Sanj[place] [id number] TR Insurance:MEDICARE BODAGERDOB: [address] A [facility] [id number] [facility] [address]Qhz: Number: Repository [id number] () Date:2017-09-03 09/03/2017 Secondary ERIBERTO D [place] Insurance:AARPPolicy BODAGERDOB: Community Number: [id number] Hospital [id number] Repository Date:6277-24-21ZF [facility] 654211GNMFWKJ, [place] [address]MM: 09/03/2017 Tertiary NOT GIVENUNK [place] Insurance:SELF PAY [facility] Number: Effective Repository Date:2017-09-03 08/31/2017 ERIBERTO D Primary ERIBERTO D [place] [id number] TR Insurance:MEDICARE BODAGERDOB: [address] A [facility] [id number] [facility] [address]Guz: Number: Repository [id number] () Date:2017-08-19 08/31/2017 Secondary ERIBERTO D [place] [facility]: Community Number: [id number] Hospital [id number] Repository Date:0942-22-52JA [facility] 999959LDGRSUO, [place] [address]LG: 08/31/2017 Tertiary NOT GIVENUNK [place] Insurance:SELF PAY [facility] Number: Effective Repository Date:2017-08-19 08/30/2017 ERIBERTO D Primary ERIBERTO D [place] [id number] Insurance:MEDICARE BODAGERDOB: [facility] PART A [facility] [id number], Number: [place]ository [place] [address]Ene: [id number] Date:2017-07-22 () 08/30/2017 Secondary ERIBERTO D [place] [facility] Community Number: [id number] Hospital [id number] Repository Date:6068-12-67WV [facility] 732200NERWM[place], [place] [address]VG: 08/30/2017 Tertiary NOT GIVENUNK [place] Insurance:SELF PAY [facility] Number: Effective Repository Date:2017-08-17 08/27/2017 ERIBERTO D Primary ERIBERTO D Sanj[place] [id number] TR Insurance:MEDICARE BODAGERDOB: [address] A [facility] [id number] [facility] [address]Qkp: Number: Repository [id number] () Date:2017-08-27 08/27/2017 Secondary ERIBERTO D [place] [facility]: [facility] Number: [id number] Hospital [id number] Repository Date:5041-90-34SM [facility] 756872MBXHYLM, [place] [address]NH: 08/27/2017 Tertiary NOT GIVENUNK [place] Insurance:SELF PAY [facility] Number: Effective Repository Date:2017-08-27 08/26/2017 ERIBERTO D Primary ERIBERTO D [place] [id number] TR Insurance:MEDICARE BODAGERDOB: [address] A [facility] [id number] [facility] [address]Bze: Number: Repository [id number] () Date:2017-08-26 08/26/2017 Secondary ERIBERTO D [place] [facility]: Community Number: [id number] Hospital [id number] Repository Date:0751-64-27AQ [facility] 051325CLJRLJU, [place] [address]NN: 08/26/2017 Tertiary NOT GIVENUNK [place] Insurance:SELF PAY [facility] Number: Effective Repository Date:2017-08-26 08/23/2017 ERIBERTO D Primary ERIBERTO D [place] [id number] TR Insurance:MEDICARE BODAGERDOB: [address] A [facility] [id number] [facility] [address]Vuh: Number: Repository [id number] () Date:2017-07-27 08/23/2017 Secondary ERIBERTO D [place] Insurance:AARPPolicy BODAGERDOB: Community Number: [id number] Hospital [id number] Repository Date:7364-62-83JN [address]AKBSEKZ, [place] [address]EN: 08/23/2017 Tertiary NOT GIVENUNK [place] Insurance:SELF PAY [facility] Number: Effective Repository Date:2017-07-27 08/23/2017 ERIBERTO D Primary ERIBERTO D [place] [id number] TR Insurance:MEDICARE BODAGERDOB: [address] PART A [facility] [id number] [facility] [address]Vnl: Number: Repository [id number] () Date:2017-07-27 08/23/2017 Secondary ERIBERTO D [place] Insurance:AARPPolicy BODAGERDOB: Community Number: [id number] Hospital [id number] Repository Date:6786-05-36OD [address]EIENZIV, [place] [address]UJ: 08/23/2017 Tertiary NOT GIVENUNK [place] Insurance:SELF PAY [facility] Number: Effective Repository Date:2017-08-23 08/14/2017 ERIBERTO D Primary ERIBERTO D [place] [id number] TR Insurance:MEDICARE BODAGERDOB: [address] PART A [facility] [id number] [facility] [address]Lju: Number: Repository [id number] () Date:2017-08-06 08/14/2017 Secondary ERIBERTO D [place] Insurance:AARPPolicy BODAGERDOB: Community Number: [id number] Hospital [id number] Repository Date:5141-95-76OV [address]ITORXYQ, [place] [address]QM: 08/14/2017 Tertiary NOT GIVENUNK [place] Insurance:SELF PAY [facility] Number: Effective Repository Date:2017-08-14 08/13/2017 ERIBERTO D Primary ERIBERTO D [place] [id number] TR Insurance:MEDICARE BODAGERDOB: [address] PART A [facility] [id number] [facility] [address]Tdf: Number: Repository [id number] () Date:2017-08-06 08/13/2017 Secondary ERIBERTO D [place] Insurance:AARPPolicy BODAGERDOB: Community Number: [id number] Hospital [id number] Repository Date:4609-63-29BA [address]GQZDJVG, [place] [address]VH: 08/13/2017 Tertiary NOT GIVENUNK [place] Insurance:SELF PAY [facility] Number: Effective Repository Date:2017-08-06 08/13/2017 ERIBERTO D Primary ERIBERTO D [place] [id number] TR Insurance:MEDICARE BODAGERDOB: [address] A [facility] [id number] [facility] 38[address]Znb: Number: Repository [id number] () Date:2017-08-06 08/13/2017 Secondary ERIBERTO D [place] Insurance:AARPPolicy BODAGERDOB: Community Number: [id number] Hospital [id number] Repository Date:6776-04-31JL [address]FOPFWXD, [place] [address]SY: 08/13/2017 Tertiary NOT GIVENUNK [place] Insurance:SELF PAY [facility] Number: Effective Repository Date:2017-08-13 08/13/2017 ERIBERTO D Primary ERIBERTO D [place] [id number] TR Insurance:MEDICARE BODAGERDOB: [address] PART A [facility] [id number] [facility] [address]Xng: Number: Repository [id number] () Date:2017-08-06 08/13/2017 Secondary ERIBERTO D [place] Insurance:AARPPolicy BODAGERDOB: Community Number: [id number] Hospital [id number] Repository Date:0856-17-60OG [address]BHOQULW, [place] [address]LL: 08/13/2017 Tertiary NOT GIVENUNK [place] Insurance:SELF PAY [facility] Number: Effective Repository Date:2017-08-13 08/06/2017 ERIBERTO D Primary ERIBERTO D [place] [id number] TR Insurance:MEDICARE BODAGERDOB: Community [address] [place] [address], PART A [facility] [id number] [address]Hgw: Number: Repository [id number] (HP) Date:2017-07-23 08/06/2017 Secondary ERIBERTO D [place] Insurance:AARPPolicy BODAGERDOB: Community Number: [id number] Hospital [id number] Repository Date:8013-52-65XO [facility] 831246GPLWXAR, [place] [address]HC: 08/06/2017 Tertiary NOT GIVENUNK [place] Insurance:SELF PAY [facility] Number: Effective Repository Date:2017-07-23 08/06/2017 ERIBERTO D Primary ERIBERTO D [place] [id number] TR Insurance:MEDICARE BODAGERDOB: [address] PART A [facility] [id number] [address]Nhq: Number: Repository [id number] () Date:2017-07-23 08/06/2017 Secondary ERIBERTO D [place] Insurance:AARPPolicy BODAGERDOB: Community Number: [id number] Hospital [id number] Repository Date:5114-65-62LB [facility] 570773CPOUQDF, [place] [address]FG: 08/06/2017 Tertiary NOT GIVENUNK [place] Insurance:SELF PAY [facility] Number: Effective Repository Date:2017-08-06 08/04/2017 ERIBERTO D Primary ERIBERTO D [place] [id number] TR Insurance:MEDICARE BODAGERDOB: Community [address] [place] [address], PART A [facility] [id number] [place] [address]Pmr: Number: Repository [id number] (HP) Date:2017-07-23 08/04/2017 Secondary ERIBERTO D [place] Insurance:AARPPolicy BODAGERDOB: Community Number: [id number] Hospital [id number] Repository Date:3094-60-94IM [address], [place] [address]DU: 08/04/2017 Tertiary NOT GIVENUNK [place] Insurance:SELF PAY [facility] Number: Effective Repository Date:2017-07-23 08/04/2017 ERIBERTO D Primary ERIBERTO D [place] [id number] TR Insurance:MEDICARE BODAGERDOB: [address] A [facility] [id number] [facility] [address]Grx: Number: Repository [id number] () Date:2017-07-23 08/04/2017 Secondary ERIBERTO D [place] Insurance:AARPPolicy BODAGERDOB: Community Number: [id number] Hospital [id number] Repository Date:9417-27-17SP [address]QVIOYFF, [place] [address]SG: 08/04/2017 Tertiary NOT GIVENUNK [place] Insurance:SELF PAY [facility] Number: Effective Repository Date:2017-08-04 08/01/2017 ERIBERTO D Primary ERIBERTO D [place] [id number] TR Insurance:MEDICARE BODAGERDOB: [address] PART A [facility] [id number] [facility] [address]Guq: Number: Repository [id number] () Date:2017-08-01 08/01/2017 Secondary ERIBERTO D [place] Insurance:AARPPolicy BODAGERDOB: Community Number: [id number] Hospital [id number] Repository Date:4950-28-10CU [address]AF[place], [place] [address]CY: 08/01/2017 Tertiary NOT GIVENUNK [place] Insurance:SELF PAY [facility] Number: Effective Repository Date:2017-08-01 07/23/2017 ERIBERTO D Primary ERIBERTO D [place] [id number] T R Insurance:MEDICARE BODAGERDOB: [address] PART A [facility] [id number] [facility] [address]Esp: Number: Repository [id number] (HP) Date:2017-07-23 07/23/2017 Secondary ERIBERTO D [place] Insurance:AARPPolicy BODAGERDOB: Community Number: [id number] Hospital [id number] Repository Date:7133-90-24XQ [address]FPDNBFX, [place] [address]HM: 07/23/2017 Tertiary NOT GIVENUNK [place] Insurance:SELF PAY [facility] Number: Effective Repository Date:2017-07-23 07/22/2017 ERIBERTO D Primary ERIBERTO D [place] [id number] T R Insurance:MEDICARE BODAGERDOB: [address] PART A [facility] [id number] [facility] 148[address]Vhl: Number: Repository [id number] () Date:2017-06-25 07/22/2017 Secondary ERIBERTO D [place] Insurance:AARPPolicy BODAGERDOB: Community Number: [id number] Hospital [id number] Repository Date:0681-31-32YC [address]NGETOQR, [place] [address]VD: 07/22/2017 Tertiary NOT GIVENUNK [place] Insurance:SELF PAY [facility] Number: Effective Repository Date:2017-07-22 07/21/2017 ERIBERTO D Primary ERIBERTO D [place] [id number] R Insurance:MEDICARE BODAGERDOB: [address] PART A [facility] [id number] [facility] [address]Hbo: Number: Repository [id number] () Date:2017-07-21 07/21/2017 Secondary ERIBERTO D [place] Insurance:AARPPolicy BODAGERDOB: Community Number: [id number] Hospital [id number] Repository Date:0166-22-97WS [address]DJNGOVM, [place] [address]AR: 07/21/2017 Tertiary NOT GIVENUNK [place] Insurance:SELF PAY [facility] Number: Effective Repository Date:2017-07-21 07/07/2017 ERIBERTO D Primary ERIBERTO D [place] [id number] R Insurance:MEDICARE BODAGERDOB: [address] PART A [facility] [id number] [facility] [address]Lbu: Number: Repository [id number] (HP) Date:2017-07-07 07/07/2017 Secondary ERIBERTO D [place] Insurance:AARPPolicy BODAGERDOB: Community Number: [id number] Hospital [id number] Repository Date:0380-42-97LU [address]TBZKET[place], [place] [address]SN: 07/07/2017 Tertiary NOT GIVENUNK [place] Insurance:SELF PAY [facility] Number: Effective Repository Date:2017-07-07 05/26/2017 Eriberto D Primary Eriberto D [place] [id number] Tr Insurance:MEDICARE BodagerDOB: [address] PART A [facility] [id number] [facility] [address]Iku: Number: Repository [id number] (HP) Date:2017-05-26 05/26/2017 Secondary Eriberto D [place] Insurance:AARPPolicy BodagerDOB: Community Number: [id number] Hospital [id number] Repository Date:7473-62-07VL [address]M, [place] [address]YR: 05/26/2017 Tertiary NOT GIVENUNK [place] Insurance:SELF PAY [facility] Number: Effective Repository Date:2017-05-26
== END 2018-04-13 10:28 | disposition home or self-care (01) ==
LOC: ED 14:20 → PCU 15:23
PROVIDERS: Hospitalist; Nurse Practitioner Family; Admitting Provider Internal Medicine; Emergency Provider Emergency Medicine; Family Provider Family Medicine; PCP Family Medicine
DX: R07.89 Other chest pain (principal); R55 Syncope and collapse; R20.0 Anesthesia of skin; I16.0 Hypertensive urgency; I25.10 Atherosclerotic heart disease of native coronary artery without angina pectoris; E11.22 Type 2 diabetes mellitus with diabetic chronic kidney disease; I12.9 Hypertensive chronic kidney disease with stage 1 through stage 4 chronic kidney disease, or unspecified chronic kidney disease; N18.3 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, stage 3 (moderate); E78.5 Hyperlipidemia, unspecified; Z95.5 Presence of coronary angioplasty implant and graft; G47.33 Obstructive sleep apnea (adult) (pediatric); K21.9 Gastro-esophageal reflux disease without esophagitis; E66.9 Obesity, unspecified; Z68.32 Body mass index [BMI] 32.0-32.9, adult; Z71.3 Dietary counseling and surveillance; Z79.899 Other long term (current) drug therapy; Z79.02 Long term (current) use of antithrombotics/antiplatelets; Z79.82 Long term (current) use of aspirin; F32.9 Major depressive disorder, single episode, unspecified; F41.9 Anxiety disorder, unspecified; J44.9 Chronic obstructive pulmonary disease, unspecified; I25.2 Old myocardial infarction; Z86.73 Personal history of transient ischemic attack (TIA), and cerebral infarction without residual deficits; Z87.891 Personal history of nicotine dependence; R29.701 NIHSS score 1
CPT/HCPCS: 36415; 70450; 71045; 80048; 80061; 82962; 83735; 84443; 84484; 85025; 85610; 85730; 93005; 96360; 96372; 99218; 99285; J7040; A4216; G0378

== ENCOUNTER 2018-08-02 13:34 | Inpatient (IN) | payer MEDICARE, OTHER, SELFPAY ==
[2017-08-13 14:08] VITALS: BMI 32.5
[2018-04-12 20:37] VITALS: BMI 32.5
[2018-08-02] VITALS (15 sets, daily range): BP systolic 111–195; BP diastolic 88–123; PULSE 74–106; RESP 16–20; TEMP 36.7–36.9; O2SAT 94–98; BMI 34.0; BMI 34.1; BMI 33.0
--- NOTE | 2018-08-02 13:56 | EKG12_ITS ---
Test Reason : CP Blood Pressure : / mmHG Vent. Rate : 112 BPM Atrial Rate : 112 BPM P-R Int : 160 ms QRS Dur : 086 ms QT Int : 316 ms P-R-T Axes : 066 056 059 degrees QTc Int : 431 ms Sinus tachycardia Possible Inferior infarct , age undetermined Abnormal ECG Confirmed by JENNIFER BOLANOS ([id number]), associate entertainment editor VERONICA SCOTT ([id number]) on 08/05/2018 11:13:21 AM Referred By: KAE Confirmed By:JENNIFER BOLANOS
--- NOTE | 2018-08-02 13:56 | RAD_ITS ---
STUDY: X-RAY CHEST REASON FOR EXAM: Male, 73 years old. Chest pain. TECHNIQUE: Single AP portable view of the chest. COMPARISON: Comparison is made with prior study dated April 12, 2018. FINDINGS: EKG electrodes are seen. Stable elevation of the right hemidiaphragm. Mild increased markings at the left lung base suggestive of scarring. I suspect healed right rib fractures with pleural thickening. I also suspect healed left rib fractures with pleural thickening. Normal size heart. Normal mediastinum and melanie. Normal visualized pulmonary arteries. There is atherosclerotic calcification of the aortic arch with tortuosity. There are diffuse degenerative changes of the visualized thoracic spine. Prior fusion in the lower cervical spine. Prior rotator cuff surgery involving the left shoulder. There is no demonstrated abnormality of the visualized soft tissue structures of the upper abdomen. RAD/Chest 1 View (Portable) IMPRESSION: No acute amount is seen. Findings suggestive of linear scarring at the left lung base as well as bilateral pleural thickening and multiple healed rib fractures. Electronically Signed: Constantin Lee, at 14:27 EDT , Service support ,
[2018-08-02 14:27] LABS: Absolute Lymphocyte Count 1.41 X10^3/ul (0.83-4.51); Absolute Neutrophil Count 7.1 X10^3/uL (2.0-7.7); Basophil# 0.02 X10^3/uL; Basophil% 0.2 % (0-1); Eosinophil# 0.02 X10^3/uL; Eosinophils% 0.2 % (0-5); Hematocrit 48.4 % (40-54); Hemoglobin 15.8 g/dl (13.0-16.5); Lymphocyte # 1.41 X10^3/ul (4.0); Lymphocyte % 15.4 % (19-41); Mean Corp Hgb Conc 32.6 g/gl (32-36); Mean Corpuscular Volume 88.8 fL (80-94); Mean Platelet Vol. 11.8 fl (6.2-12.0); Monocyte# 0.61 X10^3/uL; Monocyte% 6.6 % (0-10); Neutrophil % 77.4 % (47-70); POSITIVE COUNT NO; POSITIVE DIFFERENTIAL NO; POSITIVE MORPHOLOGY NO; Platelet Count 128 K/mm3 (150-450); RBC Distribution Width SD 45.5 fl (35.1-43.9); Red Blood Count 5.45 M/mm3 (4.6-6.2); White Blood Count 9.2 K/mm3 (4.4-11.0)
[2018-08-02] MEDS: Aspirin 81 MG TAB.CHEW 324 MG PO (14:41)
[2018-08-02 14:43] LABS: Anion Gap 7 (5-15); BUN 18 mg/dL (7-18); BUN/Creat Ratio 11.8 RATIO (10-20); Calcium,Total 8.3 mg/dL (8.5-10.1); Chloride 107 mmol/L (98-107); Creatinine, Serum 1.52 mg/dL (0.70-1.30); EST Glomerular Filtration Rate 48 mL/min (>60); Est Glom Filt Rate - Afr Amer 58 mL/min (>60); Estimated Creatinine Clearance 43.28 ml/min; Glucose 196 mg/dL (74-106); Potassium 3.6 mmol/L (3.5-5.1); Sodium Level 139 mmol/L (136-145)
--- NOTE | 2018-08-02 14:54 | ED.RN ---
PT C/O GOT WOOZY AFTER ONE NITRO, BP 111/[address] DODD INFORMED OF SAME AND NITRO WILL BE HELD AT THIS TIME.
--- NOTE | 2018-08-02 15:00 | ED.VISSUMM ---
- ER Visit Summary Date of Service: 08/02/18 Chief Complaint: Pain History of Present Illness: The patient is a 73 M with left-sided chest pain. Patient has had increasing pain over the past 1-2 weeks. He reports a dull pain over his left chest similar to his prior [place]. He also reports sweats, shortness of breath, nausea, and radiation to his left arm. He has a history of coronary disease and [place] with a stent placed about 1 year ago. Also history of hypertension and hyperlipidemia. Former smoker. Physical Examination: Afebrile and vital signs unremarkable. Patient is alert and oriented. No acute distress. Heart regular. Lungs clear. Abdomen soft. Pulses strong and equal. Test Results: EKG showed sinus rhythm at a rate of [address] and T wave changes. Platelets 128. Glucose 196 and creatinine 1.52. Troponin normal. Chest x-ray showed scarring and healing rib fractures. Emergency Department Course and Treatment: Patient treated with aspirin and nitro. Pressure dropped to 111 after one nitro so he only received 1 dose. On reevaluation, the patient is comfortable. He has a DEXTER score of 4. Hospitalist was contacted for admission for cardiac rule out. Treatment Plan: As above Disposition: Admission Impression: 1. Chest pain This note was generated with [employer] dictation software. It may contain incorrect words, spelling, and punctuation that were not noted in review of the chart prior to signing ED Disposition - Plan for ED Patient: Referrals: Victor M Luke DO [Primary Care Provider] -
--- NOTE | 2018-08-02 15:03 | ED.DCSUM_ITS ---
- ER Visit Summary Date of Service: 08/02/18 Chief Complaint: Pain History of Present Illness: The patient is a 73 M with left-sided chest pain. Patient has had increasing pain over the past 1-2 weeks. He reports a dull pain over his left chest similar to his prior [place]. He also reports sweats, shortness of breath, nausea, and radiation to his left arm. He has a history of coronary disease and [place] with a stent placed about 1 year ago. Also history of hypertension and hyperlipidemia. Former smoker. Physical Examination: Afebrile and vital signs unremarkable. Patient is alert and oriented. No acute distress. Heart regular. Lungs clear. Abdomen soft. Pulses strong and equal. Test Results: EKG showed sinus rhythm at a rate of [address] and T wave changes. Platelets 128. Glucose 196 and creatinine 1.52. Troponin normal. Chest x-ray showed scarring and healing rib fractures. Emergency Department Course and Treatment: Patient treated with aspirin and nitro. Pressure dropped to 111 after one nitro so he only received 1 dose. On reevaluation, the patient is comfortable. He has a DEXTER score of 4. Hospitalist was contacted for admission for cardiac rule out. Treatment Plan: As above Disposition: Admission Impression: 1. Chest pain This note was generated with [employer] dictation software. It may contain incorrect words, spelling, and punctuation that were not noted in review of the chart prior to signing ED Disposition - Plan for ED Patient: Referrals: Victor M Luke DO [Primary Care Provider] -
--- NOTE | 2018-08-02 15:55 | PCM.HP.STD ---
Problem List (1) Chest pain Status: Acute Qualifiers: History of Present Illness Date of Admission: 08/02/18 Chief Complaint: chest pain The patient is a 73 year old M is been expressing intermittent chest pain for the past week. Occasionally associated with rest and occasionally associated with activity. Patient states that it is left-sided and has gone down his left arm. Did not notify anyone about this previously. Patient presented to the emergency room and underwent a workup that was unremarkable. Patient did receive aspirin and nitroglycerin. His chest pain is currently better but still ongoing. This is #2 prior episodes of chest pain that he has had. Patient was a did have a stent put to his circumflex in August of last year was admitted and December and April for chest pain that was unremarkable. 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 PCI-POBA-Cx and Stent-Mid RCA x 2 Multi Link Mini Vision Rx Stent 4.0 x 28 mm 01/21/2006 Type 2 diabetes mellitus without complications (Chronic) Hypertension (Chronic) Hyperlipidemia (Chronic) Old myocardial infarction (Chronic) Obesity (Chronic) History of coronary artery stent placement (Chronic 08/13/17) [id number] 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 PCI-POBA-Cx and Stent-Mid RCA x 2 Multi Link Mini Vision Rx Stent 4.0 x 28 mm 01/21/2006 Medical History: Medical History (Last Reviewed 08/02/18 @ 16:00 by Shaan Jopperi, DO) Atherosclerotic heart disease [place] coronary artery w/angina pectoris (Chronic) I25.119 [id number]-[id number] 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 [Ecotrin] 81 mg PO DAILY@0800 01/21/17 Venlafaxine XR [Effexor Xr] 150 mg PO DAILY 11/30/17 Cyanocobalamin [Vitamin B12] 1,000 mcg PO DAILY@0800 04/12/18 Glimepiride [Amaryl] 1 mg PO DAILY 04/12/18 Magnesium Oxide [Mag-Ox 400] 800 mg PO DAILY 04/12/18 clopidogrel 75 mg tablet 75 mg PO DAILY #90 tab 06/09/18 furosemide 20 mg tablet 20 mg PO DAILY #90 tab 06/09/18 isosorbide mononitrate ER 60 mg 60 mg PO DAILY #90 tab 06/09/18 tablet,extended release 24 hr metoprolol tartrate 25 mg tablet 25 mg PO BID #180 tab 06/09/18 nitroglycerin 0.4 mg sublingual 0.4 mg SUBLINGUAL Q5-15M PRN #25 06/09/18 tablet tab pantoprazole 40 mg tablet,delayed 40 mg PO BID #180 tab 06/09/18 release potassium chloride ER 20 mEq 20 meq PO BID #180 tab 06/09/18 tablet,extended release(part/cryst) pravastatin 20 mg tablet 20 mg PO QHS #90 tab 06/09/18 spironolactone 50 mg tablet 50 mg PO DAILY #90 tab 06/09/18 Cholecalciferol (Vitamin D3) 4,000 unit PO DAILY 08/02/18 [Vitamin D3] Surgical History: Surgical History (Last Reviewed 08/02/18 @ 16:00 by Shaan Santos DO) History of coronary artery stent placement (Chronic) Onset Date: 08/13/17 Z95.5 [id number] 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 Psychiatric History: Anxiety, Depression Smoking Status: Former smoker - *Family History Maternal History Items: - - Denies maternal cardiac history Paternal History Items: - - Father with a history of Parkinson's disease. Review of Systems Constitutional: Denies: Anorexia, Chills, Fever Eyes: Denies: Blurred vision, Double vision HEENT: Denies: Head Aches, Sinus Congestion, Sinus Drainage Cardiovascular: Reports: Chest Pain. Denies: Palpitations Respiratory: Reports: Shortness of Breath. Denies: Cough Gastrointestinal: Denies: Abdominal Pain, Diarrhea Genitourinary: Denies: Dysuria Musculoskeletal: Denies: Joint Pain, Joint Tenderness Skin: Denies: Rash, Wounds Neurological: Denies: Numbness, Tingling, Focal weakness Psychiatric: Denies: Anxiety, Depression Hematologic/ Lymphatic: Denies: Easy Bruising, Easy Bleeding, Hx of blood clot Comment: A 10 point review of systems were negative except as mentioned in the history of present illness and the other review of systems. VTE Information - Inpt Only VTE Present on Admission: No VTE Pharm Prophylaxis ordered?: Yes - Physical Exam General: Alert, Cooperative, No apparent distress HEENT: Atraumatic, Normocephalic Oral: Moist Mucosa, No Gingival or Mucosal Lesions/ Ulcerations Neck: No Nodes, Thyroid Normal Size and Texture Lungs: Clear to auscultation, Normal air movement, No rhonchi, No wheeze Cardiovascular: Regular rate, Regular Rhythm, Normal S1, Normal S2, No murmurs Abdomen: Bowel Sounds Present, Soft, Non Tender, Non-Distended Extremities: No edema, No Calf Tenderness Skin: No rashes, No breakdown Psych/Mental Status: Normal Affect, Appropriate Vital Signs Temp Pulse Resp BP Pulse Ox 36.7 C 83 18 158/89 H 98 08/02/18 15:50 08/02/18 15:50 08/02/18 15:50 08/02/18 15:50 08/02/18 15:50 Oxygen Delivery Method Room Air Weight: 101.6 kg Body Mass Index (BMI) 33.0 Finger Stick Blood Glucose 103 Laboratory Tests Past 24 Hrs 08/02/18 08/02/18 14:15 14:15 WBC 9.2 RBC 5.45 Hgb 15.8 Hct 48.4 MCV 88.8 MCH 29.0 MCHC 32.6 RDW 14.0 RDW Differential 45.5 H Plt Count 128 L MPV 11.8 Immature Gran % (Auto) 0.200 Neut % (Auto) 77.4 H Lymph % (Auto) 15.4 L [place] % (Auto) 6.6 Eos % (Auto) 0.2 Baso % (Auto) 0.2 Absolute Neuts (auto) 7.1 Absolute Lymphs (auto) 1.41 Total Counted Not Reportable Sodium 139 Potassium 3.6 Chloride 107 Carbon Dioxide 25.0 Anion Gap 7 BUN 18 Creatinine 1.52 H Estim Creat Clear Calc 43.28 Est GFR (MDRD) Af Amer 58 L Est GFR (MDRD) Non-Af 48 L BUN/Creatinine Ratio 11.8 Glucose 196 H Calcium 8.3 L Troponin I < 0.015 Clinical Impression(s) from Imaging Studies Chest X-Ray 08/02/18 13:56 IMPRESSION: No acute amount is seen. Findings suggestive of linear scarring at the left lung base as well as bilateral pleural thickening and multiple healed rib fractures. Electronically Signed: Constantin Lee, at 14:27 EDT , Service support , EKG reviewed showed NSR, inferior Q waves. Assessment/Plan All Active Problems (Last Reviewed 01/21/18 @ 10:49 by Maria R Bautista) Chest pain (Acute) 1. Chest pain Heart Score of 6, DEXTER 5 Consult cardiology given history of abnormal stress (DW Dr. Palacios) Continue home medications. 2. CAD Continue with DAPT + statin 3. DVT proph: LMWH. Code Visit OBSV E&M: 82825 Initial observation care L2
--- NOTE | 2018-08-02 16:00 | HP.PCM_ITS ---
Problem List (1) Chest pain Status: Acute Qualifiers: History of Present Illness Date of Admission: 08/02/18 Chief Complaint: chest pain The patient is a 73 year old M is been expressing intermittent chest pain for the past week. Occasionally associated with rest and occasionally associated with activity. Patient states that it is left-sided and has gone down his left arm. Did not notify anyone about this previously. Patient presented to the emergency room and underwent a workup that was unremarkable. Patient did receive aspirin and nitroglycerin. His chest pain is currently better but still ongoing. This is #2 prior episodes of chest pain that he has had. Patient was a did have a stent put to his circumflex in August of last year was admitted and December and April for chest pain that was unremarkable. 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 PCI-POBA-Cx and Stent-Mid RCA x 2 Multi Link Mini Vision Rx Stent 4.0 x 28 mm 01/21/2006 Type 2 diabetes mellitus without complications (Chronic) Hypertension (Chronic) Hyperlipidemia (Chronic) Old myocardial infarction (Chronic) Obesity (Chronic) History of coronary artery stent placement (Chronic 08/13/17) [id number] 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 PCI-POBA-Cx and Stent-Mid RCA x 2 Multi Link Mini Vision Rx Stent 4.0 x 28 mm 01/21/2006 Medical History: Medical History (Last Reviewed 08/02/18 @ 16:00 by Shaan Jopperi, DO) Atherosclerotic heart disease [place] coronary artery w/angina pectoris (Chronic) I25.119 [id number] 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 [Ecotrin] 81 mg PO DAILY@0800 01/21/17 Venlafaxine XR [Effexor Xr] 150 mg PO DAILY 11/30/17 Cyanocobalamin [Vitamin B12] 1,000 mcg PO DAILY@0800 04/12/18 Glimepiride [Amaryl] 1 mg PO DAILY 04/12/18 Magnesium Oxide [Mag-Ox 400] 800 mg PO DAILY 04/12/18 clopidogrel 75 mg tablet 75 mg PO DAILY #90 tab 06/09/18 furosemide 20 mg tablet 20 mg PO DAILY #90 tab 06/09/18 isosorbide mononitrate ER 60 mg 60 mg PO DAILY #90 tab 06/09/18 tablet,extended release 24 hr metoprolol tartrate 25 mg tablet 25 mg PO BID #180 tab 06/09/18 nitroglycerin 0.4 mg sublingual 0.4 mg SUBLINGUAL Q5-15M PRN #25 06/09/18 tablet tab pantoprazole 40 mg tablet,delayed 40 mg PO BID #180 tab 06/09/18 release potassium chloride ER 20 mEq 20 meq PO BID #180 tab 06/09/18 tablet,extended release(part/cryst) pravastatin 20 mg tablet 20 mg PO QHS #90 tab 06/09/18 spironolactone 50 mg tablet 50 mg PO DAILY #90 tab 06/09/18 Cholecalciferol (Vitamin D3) 4,000 unit PO DAILY 08/02/18 [Vitamin D3] Surgical History: Surgical History (Last Reviewed 08/02/18 @ 16:00 by Shaan Santos DO) History of coronary artery stent placement (Chronic) Onset Date: 08/13/17 Z95.5 [id number] 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 Psychiatric History: Anxiety, Depression Smoking Status: Former smoker - *Family History Maternal History Items: - - Denies maternal cardiac history Paternal History Items: - - Father with a history of Parkinson's disease. Review of Systems Constitutional: Denies: Anorexia, Chills, Fever Eyes: Denies: Blurred vision, Double vision HEENT: Denies: Head Aches, Sinus Congestion, Sinus Drainage Cardiovascular: Reports: Chest Pain. Denies: Palpitations Respiratory: Reports: Shortness of Breath. Denies: Cough Gastrointestinal: Denies: Abdominal Pain, Diarrhea Genitourinary: Denies: Dysuria Musculoskeletal: Denies: Joint Pain, Joint Tenderness Skin: Denies: Rash, Wounds Neurological: Denies: Numbness, Tingling, Focal weakness Psychiatric: Denies: Anxiety, Depression Hematologic/ Lymphatic: Denies: Easy Bruising, Easy Bleeding, Hx of blood clot Comment: A 10 point review of systems were negative except as mentioned in the history of present illness and the other review of systems. VTE Information - Inpt Only VTE Present on Admission: No VTE Pharm Prophylaxis ordered?: Yes - Physical Exam General: Alert, Cooperative, No apparent distress HEENT: Atraumatic, Normocephalic Oral: Moist Mucosa, No Gingival or Mucosal Lesions/ Ulcerations Neck: No Nodes, Thyroid Normal Size and Texture Lungs: Clear to auscultation, Normal air movement, No rhonchi, No wheeze Cardiovascular: Regular rate, Regular Rhythm, Normal S1, Normal S2, No murmurs Abdomen: Bowel Sounds Present, Soft, Non Tender, Non-Distended Extremities: No edema, No Calf Tenderness Skin: No rashes, No breakdown Psych/Mental Status: Normal Affect, Appropriate Vital Signs Temp Pulse Resp BP Pulse Ox 36.7 C 83 18 158/89 H 98 08/02/18 15:50 08/02/18 15:50 08/02/18 15:50 08/02/18 15:50 08/02/18 15:50 Oxygen Delivery Method Room Air Weight: 101.6 kg Body Mass Index (BMI) 33.0 Finger Stick Blood Glucose 103 Laboratory Tests Past 24 Hrs 08/02/18 08/02/18 14:15 14:15 WBC 9.2 RBC 5.45 Hgb 15.8 Hct 48.4 MCV 88.8 MCH 29.0 MCHC 32.6 RDW 14.0 RDW Differential 45.5 H Plt Count 128 L MPV 11.8 Immature Gran % (Auto) 0.200 Neut % (Auto) 77.4 H Lymph % (Auto) 15.4 L [place] % (Auto) 6.6 Eos % (Auto) 0.2 Baso % (Auto) 0.2 Absolute Neuts (auto) 7.1 Absolute Lymphs (auto) 1.41 Total Counted Not Reportable Sodium 139 Potassium 3.6 Chloride 107 Carbon Dioxide 25.0 Anion Gap 7 BUN 18 Creatinine 1.52 H Estim Creat Clear Calc 43.28 Est GFR (MDRD) Af Amer 58 L Est GFR (MDRD) Non-Af 48 L BUN/Creatinine Ratio 11.8 Glucose 196 H Calcium 8.3 L Troponin I < 0.015 Clinical Impression(s) from Imaging Studies Chest X-Ray 08/02/18 13:56 IMPRESSION: No acute amount is seen. Findings suggestive of linear scarring at the left lung base as well as bilateral pleural thickening and multiple healed rib fractures. Electronically Signed: Constantin Lee, at 14:27 EDT , Service support , EKG reviewed showed NSR, inferior Q waves. Assessment/Plan All Active Problems (Last Reviewed 01/21/18 @ 10:49 by Maria R Bautista) Chest pain (Acute) 1. Chest pain * Heart Score of 6, DEXTER 5 * Consult cardiology given history of abnormal stress (DW Dr. Palacios) * Continue home medications. 2. CAD * Continue with DAPT + statin 3. DVT proph: LMWH. Code Visit OBSV E&M: 95020 Initial observation care L2
--- NOTE | 2018-08-02 16:33 | EKG12_ITS ---
Test Reason : AM Blood Pressure : / mmHG Vent. Rate : 064 BPM Atrial Rate : 064 BPM P-R Int : 164 ms QRS Dur : 088 ms QT Int : 396 ms P-R-T Axes : 067 060 079 degrees QTc Int : 408 ms Normal sinus rhythm Cannot rule out Inferior infarct , age undetermined Abnormal ECG When compared with ECG of 02-AUG-2018 16:04, MANUAL COMPARISON REQUIRED, DATA IS UNCONFIRMED Confirmed by NAOMIE PALOMO, PARVEZ ([id number]), glazing department supervisor VERONICA SCOTT ([id number]) on 08/08/2018 1:19:47 PM Referred By: MERLIN Confirmed By:PARVEZ AKBAR MD
--- NOTE | 2018-08-02 17:03 | PCM.CONS.C ---
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 PCI-POBA-Cx and Stent-Mid RCA x 2 Multi Link Mini Vision Rx Stent 4.0 x 28 mm 01/21/2006 (4) Hyperlipidemia Status: Chronic Qualifiers: (5) Hypertension Status: Chronic Qualifiers: (6) Type 2 diabetes mellitus without complications Status: Chronic Qualifiers: (7) CKD (chronic kidney disease) stage 3, GFR 30-59 ml/min Status: Chronic (8) COPD (chronic obstructive pulmonary disease) Status: Chronic (9) MATTHEW (obstructive sleep apnea) Status: Chronic Reason for Consult Date of Consultation: 08/02/18 History of Present Illness: The patient is a 73 year old white male with a past medical history of hyperlipidemia, hypertension, CAD, status post PCI (anomalous LCx and RCA), diabetes mellitus, chronic renal insufficiency, COPD, and obstructive sleep apnea who presents for evaluation of recurrent chest discomfort. He states he was feeling well until approximately 2 weeks ago. Over the last 2 weeks he has been progressively feeling worse. He has had episodes of both dull chest discomfort over the left chest area and intermittent sharp chest discomfort. He has had episodes of progressive shortness of breath and dyspnea mainly with exertion. He has had episodes of nausea. He states there have been episodes of diaphoresis. There is been no near syncope or syncope. He notes his energy level has gone down where he does not feel like he even wants to go outside and be active, such as cutting wood, which he did approximately 2 weeks ago. He notes the only change prior to the symptoms was that he felt like he had an upper respiratory tract related illness for which she was treated with oral antibiotics which he states improved. He is denied any orthopnea or PND or peripheral pitting edema. He states he feels similar to and/or potentially worse than prior to his most recent PCI procedure approximately 1 year ago. He presented to the outpatient office area. He was evaluated by the nursing staff. He was reported his appearing not well and diaphoretic. He was taken to the emergency department for further evaluation. There he was evaluated and found to have a negative troponin I level. His ECG demonstrated sinus rhythm with poor R wave progression with an inferior AL pattern of indeterminate age. He was treated with nitroglycerin sublingual. He then went from being hypertensive to reportedly hypotensive. He states following that he noted blurry vision which is gradually improving and additional nausea and diaphoresis. He states he knows something is not quite right. He does not believe this is related to any gastrointestinal related etiologies. He does not believe he has done any different physical exertional activity with his upper extremities or chest that would bring out more musculoskeletal discomfort. He has not had any recent episodes of immobility increasing his risk of thromboembolic related events. He was placed in the PCU. He has had a repeat ECG. His repeat ECG is demonstrated no new acute changes. [] Past Medical History Allergies/Adverse Reactions: Allergies No Known Allergies Allergy (Verified 04/12/18 13:16) Home Medications: Ambulatory Orders Medication Instructions Recorded Aspirin E.C. [Ecotrin] 81 mg PO DAILY@0800 01/21/17 Venlafaxine XR [Effexor Xr] 150 mg PO DAILY 11/30/17 Cyanocobalamin [Vitamin B12] 1,000 mcg PO DAILY@0800 04/12/18 Glimepiride [Amaryl] 1 mg PO DAILY 04/12/18 Magnesium Oxide [Mag-Ox 400] 800 mg PO DAILY 04/12/18 clopidogrel 75 mg tablet 75 mg PO DAILY #90 tab 06/09/18 furosemide 20 mg tablet 20 mg PO DAILY #90 tab 06/09/18 isosorbide mononitrate ER 60 mg 60 mg PO DAILY #90 tab 06/09/18 tablet,extended release 24 hr metoprolol tartrate 25 mg tablet 25 mg PO BID #180 tab 06/09/18 nitroglycerin 0.4 mg sublingual 0.4 mg SUBLINGUAL Q5-15M PRN #25 06/09/18 tablet tab pantoprazole 40 mg tablet,delayed 40 mg PO BID #180 tab 06/09/18 release potassium chloride ER 20 mEq 20 meq PO BID #180 tab 06/09/18 tablet,extended release(part/cryst) pravastatin 20 mg tablet 20 mg PO QHS #90 tab 06/09/18 spironolactone 50 mg tablet 50 mg PO DAILY #90 tab 06/09/18 Cholecalciferol (Vitamin D3) 4,000 unit PO DAILY 08/02/18 [Vitamin D3] Past Medical History (Chronic Problems): Chronic Problems (Last Reviewed 08/02/18 @ 16:00 by Shaan Santos DO) COPD (chronic obstructive pulmonary disease) (Chronic) 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.9) (Chronic) MATTHEW (obstructive sleep apnea) (Chronic) CKD (chronic kidney disease) stage 3, GFR 30-59 ml/min (Chronic) CAD (coronary artery disease) (Chronic) Atherosclerotic heart disease [place] coronary artery w/angina pectoris (Chronic) [id number] 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 PCI-POBA-Cx and Stent-Mid RCA x 2 Multi Link Mini Vision Rx Stent 4.0 x 28 mm 01/21/2006 Type 2 diabetes mellitus without complications (Chronic) Hypertension (Chronic) Hyperlipidemia (Chronic) Old myocardial infarction (Chronic) Obesity (Chronic) History of coronary artery stent placement (Chronic 08/13/17) [id number] 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 Psychiatric History: Anxiety, Depression - *Family History Maternal History Items: - - Denies maternal cardiac history Paternal History Items: - - Father with a history of Parkinson's disease. Lives: Spouse/ Significant Other Smoking Status: Former smoker Alcohol: None Drugs: None Subjectve: This is a 73-year-old white male who appears to be resting reasonably comfortably at the moment in no acute distress. Objective: Vital Signs Temp Pulse Resp BP Pulse Ox 98.1 F 83 18 158/89 H 98 08/02/18 15:50 08/02/18 15:50 08/02/18 15:50 08/02/18 15:50 08/02/18 15:50 Oxygen Delivery Method Room Air Weight: 223 lb 15.834 oz Body Mass Index (BMI) 33.0 Finger Stick Blood Glucose 103 General: Awake, Alert, Oriented x 3, Cooperative, No Acute Distress HEENT: Atraumatic, Normocephalic, PERRL, EOMI, Sclera Non Icteric Oral: Moist Mucosa Neck: Supple, Good ROM, No JVD Lungs: Clear to auscultation Cardiovascular: Regular Rhythm, Normal S1, Normal S2 Vascular: No Carotid Bruits Abdomen: Bowel Sounds Present, Soft, Non Tender Extremities: No Cyanosis, No Clubbing, No edema Neurological: No Focal Motor or Sensory Deficit Psych/Mental Status: Appropriate 08/02/18 14:15: WBC 9.2, RBC 5.45, Hgb 15.8, Hct 48.4, MCV 88.8, MCH 29.0, MCHC 32.6, RDW 14.0, RDW Differential 45.5 H, Plt Count 128 L, MPV 11.8, Immature Gran % (Auto) 0.200, Neut % (Auto) 77.4 H, Lymph % (Auto) 15.4 L, [place] % (Auto) 6.6, Eos % (Auto) 0.2, Baso % (Auto) 0.2, Absolute Neuts (auto) 7.1, Total Counted Not Reportable 08/02/18 14:15: Sodium 139, Potassium 3.6, Chloride 107, Carbon Dioxide 25.0, Anion Gap 7, BUN 18, Creatinine 1.52 H, Est GFR (MDRD) Af Amer 58 L, Est GFR (MDRD) Non-Af 48 L, BUN/Creatinine Ratio 11.8, Glucose 196 H, Calcium 8.3 L, Troponin I < 0.015 Rhythm: Sinus rhythm EKG: Sinus rhythm; poor R wave progression; inferior AL of indeterminate age ECHO: 08-04-17 left ventricle normal with an LVEF of 65%; trivial MR; trivial TR; mild focal aortic valve thickening; estimated RV systolic pressure of 30 mmHg; decreased diastolic compliance Stress Test: Stress echo: 12-01-17: Reported as an abnormal adequate treadmill echo positive for ischemia by echo criteria: Hypokinesis of the basal to mid lateral segments Cardiac Cath: 12-01-17: Left ventricle reported as mild hypokinesis with an estimated LVEF 65%; left main with no significant disease; LAD with mild luminal irregularities less than 30%; LCx with report of being anomalous and a widely patent stent; LAD reporting a proximal to mid stent with 10% in-stent stenosis PCI: 08-13-17: PTCA/KENDALL to the LCx with a 2.25 x 20 Promus Synergy stent CXR: Preliminary evaluation: No acute cardiopulmonary disease process appreciated Assessment/Plan 1. Chest pain The patient presents with chest pain. His chest pain is somewhat mixed with symptoms concerning for underlying CAD with myocardial ischemia and angina pectoris and other symptoms seeming somewhat atypical and potentially noncardiac in etiology. He has additional symptoms as previously noted such as dyspnea, nausea, diaphoresis. He is also noted decreased energy level. He states there is been no other obvious explanation, other than concerns of his heart, to explain this. His initial cardiac enzymes are negative. His ECGs demonstrated no new acute changes. At the present time he will continue to be monitored. He will continue enzyme follow-up and ECG follow-up. An echocardiogram can be requested to reassess his left ventricular wall motion and systolic function. However, based upon his recent change, ongoing symptoms, symptoms at rest as well, it would not be unreasonable to consider reassessing him in the cardiac catheterization laboratory for any progression of disease or evidence of in-stent restenosis. The procedure and risks were discussed with him. He was agreeable to this approach. He also knows that part of his clinical course may include at some point in time a follow-up physiologic study such as an exercise tolerance test/imaging study in attempt to correlate his underlying CAD anatomy with physiology/symptoms, etc. The same time he needs to be monitored for noncardiac issues. He states he does not believe this is related to his gastrointestinal tract. He does not have any recent evidence of immobility suggesting increased risk for thromboembolic disease. He claims to have no increased physical activity suggesting obvious musculoskeletal discomfort. However it may not be unreasonable to treat him for possible gastrointestinal related disease with medical management and attempted a nonsteroidal anti-inflammatory agent for any possible musculoskeletal element as well. 2. 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 He will continue to be monitored as noted above. He will continue evaluation as noted above. The meantime he will continue medical therapy. He is already on aspirin and antiplatelet therapy with clopidogrel/Plavix. He is on nitrates. He is on a beta-jeffrey. He is also on lipid-lowering agents with statins. He can receive anticoagulants in the interim as directed. 3. Hyperlipidemia He is on lipid-lowering therapy. 4. Hypertension Blood pressure was elevated upon arrival in the emergency department. Is unclear whether that was a primary etiology for his symptoms or a secondary event from his symptoms. The present time his blood pressure be followed. His medicines can be adjusted to assist with blood pressure control as needed. 5. Diabetes mellitus He will continue under the care of internal medicine for this. 6. Renal insufficiency He has a history of renal insufficiency. This will be taken into consideration with respect to medical therapy and additional studies including those revolving around IV contrast media. 7. COPD Again he will continue evaluation care per internal medicine as deemed appropriate. 8. Obstructive sleep apnea He should continue evaluation care per his primary care physicians, etc. Comment: The above was discussed with the patient, his family members present, and Dr. Santos. This note was generated with [employer] dictation software. It may contain incorrect words, spelling, and punctuation that were not noted in checking the note before signing.
--- NOTE | 2018-08-02 17:08 | CON.PCM_ITS ---
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 PCI-POBA-Cx and Stent-Mid RCA x 2 Multi Link Mini Vision Rx Stent 4.0 x 28 mm 01/21/2006 (4) Hyperlipidemia Status: Chronic Qualifiers: (5) Hypertension Status: Chronic Qualifiers: (6) Type 2 diabetes mellitus without complications Status: Chronic Qualifiers: (7) CKD (chronic kidney disease) stage 3, GFR 30-59 ml/min Status: Chronic (8) COPD (chronic obstructive pulmonary disease) Status: Chronic (9) MATTHEW (obstructive sleep apnea) Status: Chronic Reason for Consult Date of Consultation: 08/02/18 History of Present Illness: The patient is a 73 year old white male with a past medical history of hyperlipidemia, hypertension, CAD, status post PCI (anomalous LCx and RCA), diabetes mellitus, chronic renal insufficiency, COPD, and obstructive sleep apnea who presents for evaluation of recurrent chest discomfort. He states he was feeling well until approximately 2 weeks ago. Over the last 2 weeks he has been progressively feeling worse. He has had episodes of both dull chest discomfort over the left chest area and intermittent sharp chest discomfort. He has had episodes of progressive shortness of breath and dyspnea mainly with exertion. He has had episodes of nausea. He states there have been episodes of diaphoresis. There is been no near syncope or syncope. He notes his energy level has gone down where he does not feel like he even wants to go outside and be active, such as cutting wood, which he did approximately 2 weeks ago. He notes the only change prior to the symptoms was that he felt like he had an upper respiratory tract related illness for which she was treated with oral antibiotics which he states improved. He is denied any orthopnea or PND or peripheral pitting edema. He states he feels similar to and/or potentially worse than prior to his most recent PCI procedure approximately 1 year ago. He presented to the outpatient office area. He was evaluated by the nursing staff. He was reported his appearing not well and diaphoretic. He was taken to the emergency department for further evaluation. There he was evaluated and found to have a negative troponin I level. His ECG demonstrated sinus rhythm with poor R wave progression with an inferior PR pattern of indeterminate age. He was treated with nitroglycerin sublingual. He then went from being hypertensive to reportedly hypotensive. He states following that he noted blurry vision which is gradually improving and additional nausea and diaphoresis. He states he knows something is not quite right. He does not believe this is related to any gastrointestinal related etiologies. He does not believe he has done any different physical exertional activity with his upper extremities or chest that would bring out more musculoskeletal discomfort. He has not had any recent episodes of immobility increasing his risk of thromboembolic related events. He was placed in the PCU. He has had a repeat ECG. His repeat ECG is demonstrated no new acute changes. [] Past Medical History Allergies/Adverse Reactions: Allergies No Known Allergies Allergy (Verified 04/12/18 13:16) Home Medications: Ambulatory Orders Medication Instructions Recorded Aspirin E.C. [Ecotrin] 81 mg PO DAILY@0800 01/21/17 Venlafaxine XR [Effexor Xr] 150 mg PO DAILY 11/30/17 Cyanocobalamin [Vitamin B12] 1,000 mcg PO DAILY@0800 04/12/18 Glimepiride [Amaryl] 1 mg PO DAILY 04/12/18 Magnesium Oxide [Mag-Ox 400] 800 mg PO DAILY 04/12/18 clopidogrel 75 mg tablet 75 mg PO DAILY #90 tab 06/09/18 furosemide 20 mg tablet 20 mg PO DAILY #90 tab 06/09/18 isosorbide mononitrate ER 60 mg 60 mg PO DAILY #90 tab 06/09/18 tablet,extended release 24 hr metoprolol tartrate 25 mg tablet 25 mg PO BID #180 tab 06/09/18 nitroglycerin 0.4 mg sublingual 0.4 mg SUBLINGUAL Q5-15M PRN #25 06/09/18 tablet tab pantoprazole 40 mg tablet,delayed 40 mg PO BID #180 tab 06/09/18 release potassium chloride ER 20 mEq 20 meq PO BID #180 tab 06/09/18 tablet,extended release(part/cryst) pravastatin 20 mg tablet 20 mg PO QHS #90 tab 06/09/18 spironolactone 50 mg tablet 50 mg PO DAILY #90 tab 06/09/18 Cholecalciferol (Vitamin D3) 4,000 unit PO DAILY 08/02/18 [Vitamin D3] Past Medical History (Chronic Problems): Chronic Problems (Last Reviewed 08/02/18 @ 16:00 by Shaan Santos DO) COPD (chronic obstructive pulmonary disease) (Chronic) 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.9) (Chronic) MATTHEW (obstructive sleep apnea) (Chronic) CKD (chronic kidney disease) stage 3, GFR 30-59 ml/min (Chronic) CAD (coronary artery disease) (Chronic) 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) [id number] 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 PCI-POBA-Cx and Stent-Mid RCA x 2 Multi Link Mini Vision Rx Stent 4.0 x 28 mm 01/21/2006 Type 2 diabetes mellitus without complications (Chronic) Hypertension (Chronic) Hyperlipidemia (Chronic) Old myocardial infarction (Chronic) Obesity (Chronic) History of coronary artery stent placement (Chronic 08/13/17) [id number] 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 Psychiatric History: Anxiety, Depression - *Family History Maternal History Items: - - Denies maternal cardiac history Paternal History Items: - - Father with a history of Parkinson's disease. Lives: Spouse/ Significant Other Smoking Status: Former smoker Alcohol: None Drugs: None Subjectve: This is a 73-year-old white male who appears to be resting reasonably comfortably at the moment in no acute distress. Objective: Vital Signs Temp Pulse Resp BP Pulse Ox 98.1 F 83 18 158/89 H 98 08/02/18 15:50 08/02/18 15:50 08/02/18 15:50 08/02/18 15:50 08/02/18 15:50 Oxygen Delivery Method Room Air Weight: 223 lb 15.834 oz Body Mass Index (BMI) 33.0 Finger Stick Blood Glucose 103 General: Awake, Alert, Oriented x 3, Cooperative, No Acute Distress HEENT: Atraumatic, Normocephalic, PERRL, EOMI, Sclera Non Icteric Oral: Moist Mucosa Neck: Supple, Good ROM, No JVD Lungs: Clear to auscultation Cardiovascular: Regular Rhythm, Normal S1, Normal S2 Vascular: No Carotid Bruits Abdomen: Bowel Sounds Present, Soft, Non Tender Extremities: No Cyanosis, No Clubbing, No edema Neurological: No Focal Motor or Sensory Deficit Psych/Mental Status: Appropriate 08/02/18 14:15: WBC 9.2, RBC 5.45, Hgb 15.8, Hct 48.4, MCV 88.8, MCH 29.0, MCHC 32.6, RDW 14.0, RDW Differential 45.5 H, Plt Count 128 L, MPV 11.8, Immature Gran % (Auto) 0.200, Neut % (Auto) 77.4 H, Lymph % (Auto) 15.4 L, Campbell % (Auto) 6.6, Eos % (Auto) 0.2, Baso % (Auto) 0.2, Absolute Neuts (auto) 7.1, Total Counted Not Reportable 08/02/18 14:15: Sodium 139, Potassium 3.6, Chloride 107, Carbon Dioxide 25.0, Anion Gap 7, BUN 18, Creatinine 1.52 H, Est GFR (MDRD) Af Amer 58 L, Est GFR (MDRD) Non-Af 48 L, BUN/Creatinine Ratio 11.8, Glucose 196 H, Calcium 8.3 L, Troponin I < 0.015 Rhythm: Sinus rhythm EKG: Sinus rhythm; poor R wave progression; inferior PR of indeterminate age ECHO: 08-04-17 left ventricle normal with an LVEF of 65%; trivial MR; trivial TR; mild focal aortic valve thickening; estimated RV systolic pressure of 30 mmHg; decreased diastolic compliance Stress Test: Stress echo: 12-01-17: Reported as an abnormal adequate treadmill echo positive for ischemia by echo criteria: Hypokinesis of the basal to mid lateral segments Cardiac Cath: 12-01-17: Left ventricle reported as mild hypokinesis with an estimated LVEF 65%; left main with no significant disease; LAD with mild luminal irregularities less than 30%; LCx with report of being anomalous and a widely patent stent; LAD reporting a proximal to mid stent with 10% in-stent stenosis PCI: 08-13-17: PTCA/KENDALL to the LCx with a 2.25 x 20 Promus Synergy stent CXR: Preliminary evaluation: No acute cardiopulmonary disease process appreciated Assessment/Plan 1. Chest pain The patient presents with chest pain. His chest pain is somewhat mixed with symptoms concerning for underlying CAD with myocardial ischemia and angina pectoris and other symptoms seeming somewhat atypical and potentially noncardiac in etiology. He has additional symptoms as previously noted such as dyspnea, nausea, diaphoresis. He is also noted decreased energy level. He states there is been no other obvious explanation, other than concerns of his heart, to explain this. His initial cardiac enzymes are negative. His ECGs demonstrated no new acute changes. At the present time he will continue to be monitored. He will continue enzyme follow-up and ECG follow-up. An echocardiogram can be requested to reassess his left ventricular wall motion and systolic function. However, based upon his recent change, ongoing symptoms, symptoms at rest as well, it would not be unreasonable to consider reassessing him in the cardiac catheterization laboratory for any progression of disease or evidence of in- stent restenosis. The procedure and risks were discussed with him. He was agreeable to this approach. He also knows that part of his clinical course may include at some point in time a follow-up physiologic study such as an exercise tolerance test/imaging study in attempt to correlate his underlying CAD anatomy with physiology/symptoms, etc. The same time he needs to be monitored for noncardiac issues. He states he does not believe this is related to his gastrointestinal tract. He does not have any recent evidence of immobility suggesting increased risk for thromboembolic disease. He claims to have no increased physical activity suggesting obvious musculoskeletal discomfort. However it may not be unreasonable to treat him for possible gastrointestinal related disease with medical management and attempted a nonsteroidal anti-inflammatory agent for any possible musculoskeletal element as well. 2. 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 He will continue to be monitored as noted above. He will continue evaluation as noted above. The meantime he will continue medical therapy. He is already on aspirin and antiplatelet therapy with clopidogrel/Plavix. He is on nitrates. He is on a beta-jeffery. He is also on lipid-lowering agents with statins. He can receive anticoagulants in the interim as directed. 3. Hyperlipidemia He is on lipid-lowering therapy. 4. Hypertension Blood pressure was elevated upon arrival in the emergency department. Is unclear whether that was a primary etiology for his symptoms or a secondary event from his symptoms. The present time his blood pressure be followed. His medicines can be adjusted to assist with blood pressure control as needed. 5. Diabetes mellitus He will continue under the care of internal medicine for this. 6. Renal insufficiency He has a history of renal insufficiency. This will be taken into consideration with respect to medical therapy and additional studies including those revolving around IV contrast media. 7. COPD Again he will continue evaluation care per internal medicine as deemed appropriate. 8. Obstructive sleep apnea He should continue evaluation care per his primary care physicians, etc. Comment: The above was discussed with the patient, his family members present, and Dr. Santos. This note was generated with [email or web address] dictation software. It may contain incorrect words, spelling, and punctuation that were not noted in checking the note before signing.
[2018-08-02] MEDS: Ketorolac 15 MG/ML Vial IV (17:30)
[2018-08-02] MEDS: 0.9% NaCl Peripheral Flush Adult/Peds IV (17:30)
[2018-08-02 21:32] LABS: Bacteria 0 SEEN /hpf (None Seen); Red Blood Cells-Urine 0 SEEN /hpf (0-5); Squamous Epithelial Cells - UA 0 SEEN /hpf (0-5); White Blood Cells 0 SEEN /hpf (0-5)
[2018-08-02 21:40] LABS: Color, Urine Yellow (Yellow); Glucose, Dipstick Normal (Normal); Ketone-Dipstick Negative (Negative); Leukocyte Esterase-Dipstick Negative /ul (Negative); Nitrite-Dipstick Negative (Negative); Occult Blood-Urine Negative /ul (Negative); Protein-Dipstick Negative (Negative); Urine Bilirubin Dipstick Negative (Negative); Urine Clarity Clear (Clear); Urine Urobilinogen Normal (Normal)
[2018-08-02 21:47] LABS: Mucous, Urine RARE /hpf (<or=2+)
[2018-08-02] MEDS: Pravastatin 20 MG Tablet PO (22:20)
[2018-08-02] MEDS: Metoprolol Tartrate 25 MG Tablet PO (22:20)
[2018-08-02] MEDS: Pantoprazole Sodium 40 MG Tablet PO (22:20)
[2018-08-03] VITALS (39 sets, daily range): BP systolic 114–158; BP diastolic 73–97; PULSE 55–92; RESP 12–22; TEMP 36.7–37.2; O2SAT 90–96; BMI 19.8
[2018-08-03 05:36] LABS: Absolute Lymphocyte Count 2.35 X10^3/ul (0.83-4.51); Absolute Neutrophil Count 4.7 X10^3/uL (2.0-7.7); Basophil# 0.03 X10^3/uL; Basophil% 0.4 % (0-1); Eosinophil# 0.08 X10^3/uL; Lymphocyte # 2.35 X10^3/ul (4.0); Lymphocyte % 29.1 % (19-41); Mean Corp Hgb Conc 31.9 g/gl (32-36); Mean Corpuscular Hgb 28.6 pg (27.0-32.0); Mean Corpuscular Volume 89.7 fL (80-94); Mean Platelet Vol. 12.7 fl (6.2-12.0); Monocyte# 0.84 X10^3/uL; Monocyte% 10.4 % (0-10); Neutrophil # 4.72 X10^3/uL (2.7-7.7); Neutrophil % 58.4 % (47-70); Platelet Count 126 K/mm3 (150-450); RBC Distribution Width CV 14.1 % (11.6-14.6); RBC Distribution Width SD 46.3 fl (35.1-43.9); Red Blood Count 5.24 M/mm3 (4.6-6.2); White Blood Count 8.1 K/mm3 (4.4-11.0)
[2018-08-03 05:38] LABS: POSITIVE COUNT NO; POSITIVE DIFFERENTIAL NO; POSITIVE MORPHOLOGY NO
[2018-08-03 05:42] LABS: Partial Thromboplast Time 29.7 Seconds (24.1-36.2); Prothrombin Time (Protime)PT. 13.4 SECONDS (11.7-14.9)
[2018-08-03 05:50] LABS: Anion Gap 7 (5-15); BUN 21 mg/dL (7-18); BUN/Creat Ratio 14.5 RATIO (10-20); Calcium,Total 8.4 mg/dL (8.5-10.1); Chloride 109 mmol/L (98-107); Cholesterol 192 mg/dL (200); Creatinine, Serum 1.45 mg/dL (0.70-1.30); EST Glomerular Filtration Rate 51 mL/min (>60); Est Glom Filt Rate - Afr Amer 61 mL/min (>60); Estimated Creatinine Clearance 45.37 ml/min; Glucose 117 mg/dL (74-106); High Density Lipoprotein 42 mg/dL; Potassium 4.1 mmol/L (3.5-5.1); Sodium Level 142 mmol/L (136-145); Triglycerides 356 mg/dL; Very Low Density Lipoprotein 71 mg/dL (5-40)
--- NOTE | 2018-08-03 05:55 | EKG12_ITS ---
Test Reason : ADMISSION Blood Pressure : / mmHG Vent. Rate : 079 BPM Atrial Rate : 079 BPM P-R Int : 164 ms QRS Dur : 094 ms QT Int : 362 ms P-R-T Axes : 063 059 067 degrees QTc Int : 415 ms Normal sinus rhythm Possible Inferior infarct , age undetermined Abnormal ECG When compared with ECG of 13-APR-2018 05:23, Borderline criteria for Inferior infarct are now Present Confirmed by NAOMIE PALOMO, PARVEZ ([id number]), food editor VERONICA SCOTT ([id number]) on 08/08/2018 1:21:50 PM Referred By: MERLIN Confirmed By:PARVEZ AKBAR MD
--- NOTE | 2018-08-03 05:55 | ECHOCS_ITS ---
Reason For Study: CAD Procedure This was a 2D Doppler, Color Flow transthoracic echocardiogram. Exam performed portable in ICU/CCU. Left Ventricle Normal size and thickness. The estimated ejection fraction is 65 %. Stage 1 diastolic dysfunction. No regional wall motion abnormalities noted. Right Ventricle Normal size and thickness. Normal systolic function. Atria Normal left atrium. Normal right atrium. Normal atrial septum. Mitral Valve The mitral valve is structurally normal. No prolapse or stenosis seen. Tricuspid Valve Normal tricuspid valve. Unable to estimate RV systolic pressure due to inadequate jet, pulmonary artery pressure probably normal. Aortic Valve Trisinus/trileaflet aortic valve. Mild diffuse aortic valve thickening. Pulmonic Valve Normal pulmonic valve. Great Vessels Normal aortic root. Normal arch. Normal inferior vena cava. Inferior vena cava collapse with sniff. Pericardium/Pleural No pericardial effusion. Medication Diluted definity 2ml given slow IV push to enhance endocardial definition. MMode/2D Measurements & Calculations LVIDd: 4.1 cm IVSd: 1.1 cm Ao root diam: 3.1 cm LVIDs: 2.4 cm LVPWd: 1.1 cm RVDd: 3.2 cm FS: 40.9 % LAV(MOD-bp): 27.1 ml LA A4 area: 13.6 cm2 LA dimension(2D): 3.3 cm LAV(MOD-bp) Indexed: 12.5 ml/m2 LAV(MOD-sp2): 17.1 ml LAV(MOD-sp4): 36.5 ml RA A4 area: 9.8 cm2 Doppler Measurements & Calculations MV E max jong: 63.1 cm/sec Ao V2 max: 161.4 cm/sec LV V1 max: 104.1 cm/sec MV A max jong: 74.4 cm/sec Ao max P.4 mmHg LV V1 max P.3 mmHg MV E/A: 0.85 PA V2 max: 132.7 cm/sec Interpretation Summary The estimated ejection fraction is 65 %. Stage 1 diastolic dysfunction. Unable to estimate RV systolic pressure due to inadequate jet, pulmonary artery pressure probably normal. Compared to echo report dated 08/04/2017, no appreciable changes noted. The study was technically difficult. Contrast injection was performed. Ordering Physician: John Palacios Referring Physician: Victor M Luke Performed By: Kimberlee Everett RDCS
[2018-08-03] MEDS: 0.9% Normal Saline 1,000 ML 15 ML IV (06:16)
[2018-08-03] MEDS: Metoprolol Tartrate 25 MG Tablet PO ×2 (06:17→20:27)
[2018-08-03] MEDS: Isosorbide Mononitrate 60 MG Tablet PO ×2 (06:17→20:23)
[2018-08-03] MEDS: Clopidogrel Bisulfate 75 MG Tablet PO (06:17)
[2018-08-03] MEDS: Aspirin E.C. 81 MG Tablet PO (06:17)
[2018-08-03] MEDS: 0.9% NaCl Peripheral Flush Adult/Peds IV ×3 (06:18→20:39)
[2018-08-03 07:10] LABS: Bedside Glucose 118 mg/dL (70-110)
--- NOTE | 2018-08-03 10:41 | CL.I_ITS ---
Patient Name: GERRY GARCIA Study Date: 08/03/2018 Performing: Elías Olmstead MD Ht: 68.89 inches 175 cm : 1945 Wt: 224.87 lbs 102 kg Age: 73 Gender: male BSA: 2.17 PROCEDURE(S) PERFORMED OM75-OBP/COR/LV CLINICAL PROFILE AND CO-MORBIDITIES Indications: ACS > 24 hrs, New Onset Angina <= 2 months, Stable Known CAD, LV Dysfunction Heart Failure: None Stress/Imaging Stress/Image Study Performed: No Angina Classification Anginal Classification w/in 2 Weeks: CCS III CAD Presentations: Unstable angina. Other: Exertional angina identical to previous angina prior t o PCI of LCX in 08/2017. Comorbidities/Risk Factors: Hypertension Dyslipidemia Prior PCI CONCLUSIONS Normal LV size, wall motion,and systolic function Normal Left Ventricular systolic function Normal LV size, wall motion,and systolic function LVEF: by LV gram 65 % Normal Left Ventricular End Diastolic Pressure Unsuccessful PCI of the anomalous LCX off of the RCA despite anchor wire, multiple wires and attempts . Procedure aborted. No complications. RECOMMENDATIONS Referred for immediate PCI Highly recommend quitting all tobacco products Follow up with primary manager of health Risk factor modification ASA Indefinitley Plavix for at least 12 months Routine post interventional care Refer for Outpatient Cardiac Rehab Manual sheath removal per protocol Increase Imdur to 60mg po bid. Refer to [facility] [place] for elective PCI of anomalous LCX. Pt will need long 55 cm sheath. Manual sheath removal. Pt did not respond to Ranexa in the past. DESCRIPTION OF PROCEDURE The patient arrived to the procedure lab. The risks and benefits of the procedure as well as a full d escription of our services here and lack of surgical backup were fully explained to the patient and/o r their significant other prior to the catheterization. The Timeout was completed, verifying the slime ect patient and procedure. The patient's procedural site was prepped and draped in the usual fashion. Local anesthetic was given subcutaneously to right groin region with Lidocaine 2%. Using a modified Seldinger technique, arterial access was obtained via the right femoral artery, a 4Fr 45cm sheath wa s inserted. Left Coronary Artery selective angiography was performed in multiple views using a 4 Fr. JL5 catheter. Right Coronary Artery and Anomalous Circumflex selective angiography was then performe d in multiple views using a 4 Fr. 3DRC catheter. Left Ventriculography was performed in JOSEPH projectio n using a 4 Fr. Pigtail catheter. LV to AO pullback pressures were then recordedThe images were reviewed and options discussed. A decision was then made to proceed with an Intervention, IVUS o r other adjunct procedure. Arterial sheath was exchanged for a 6fr 55cm sheath HSII Guide catheter was inserted and engaged into the RCA. BMW Guide wire was advanced to the RCA as a toyin wire Emerge 2.00x8 Balloon catheter w as inserted. The arterial sheath was exchanged to a standard sheath and sutured in place CORONARY ANGIOGRAPHY DOMINANCE: Right Dominant LEFT HEART ASSESSMENT Left Ventricular Ejection Fraction: by LV Gram 65 % LVEDP: 13 mmHg Normal Left Ventricular End Diastolic Pressure Normal Left Ventricular systolic function Anterior Hypokinesis - Mild. Normal LV wall motion LEFT MAIN: Angiographically normal LEFT ANTERIOR DECENDING ARTERY: MID LAD: 40 % Stenosis CIRCUMFLEX ARTERY: PROX CIRC: Moderate luminal irregularities up to 50%, Instent restenosis 85 % RIGHT CORONARY ARTERY: MID RCA: Previously placed stent is patent RT PDA: Mid - Mild luminal irregularities less than 30% INTERVENTION INFORMATION LESION SITE: Circumflex (Proximal) Lesion Complexity: High/C, lesion at bifurcation: No, thrombus present: No, lesion length: 35 mm, cul prit lesion: Yes Pre Stenosis: 85 % Pre intervention DEXTER flow: 3 PROCEDURE: Unsuccessful crossing of anomalous LCX off of RCA with 4 different wires; procedure aborted. Post Stenosis: 85 % Post intervention DEXTER flow: 3 COMPLICATIONS No Complications PROCEDURE MEDICATIONS Oxygen: 2 L/min via nasal cannula Benadryl 25 mg IV @ 08/03/2018 08:44:53 Heparin 6000 unit(s) IV 08/03/2018 09:19:58 Heparin 4000 unit(s) IV 08/03/2018 09:44:32 Nitro glycerin 25mg / 250ml D5W @ 5 mcg/min IV started 08/03/2018 09:29:33 IV Bolus: .9 NaCl 450 ml total 08/03/2018 09:18:56 SUMMARY OF HEMODYNAMIC DATA Time AIR REST ECG 08:36:15 AO 169/90 (120) SA 09:08:53 LV 169/-18, 8 09:15:51 LV 172/-18, 13 09:15:57 LVp 171/-19, 16 09:16:08 [facility] 159/77 (109) 09:16:13 10:35:57 Signed By Elías Olmstead MD On 08/03/2018 10:40:43 Elías Olmstead MD
--- NOTE | 2018-08-03 10:45 | NURSING ---
Nitro GTT on per [employer] [employer] staff, order from Dr Olmstead from [employer].
[2018-08-03] MEDS: 0.9% Normal Saline 1,000 ML 150 ML IV (11:00)
--- NOTE | 2018-08-03 12:59 | CRPHASE1 ---
Patient Communication Former Patient:: Phase I PHII Cardiac Rehab Discussed with Patient:: Yes - Dr. tejeda is goig to send patient to [facility] for further evaluation. Guide to Cardiac Rehab Given to Patient:: Yes Cardiac Rehab Facility Choice List Given to Patient:: Yes Door Manager:: Elías Tejeda Risk Factors/Lifestyle Smoking Status: Former smoker Height: 2.27 m Weight:: 102 kg BMI: 19.8 Family History: Heart Disease, Hypertension Laboratory Values: Cardiac Rehab Phase I Labs Triglycerides 356 mg/dL (-199) H 08/03/18 04:54 Cholesterol 192 mg/dL (200) 08/03/18 04:54 LDL Cholesterol 79 mg/dL (0-130) 08/03/18 04:54 HDL Cholesterol 42 mg/dL (40-) 08/03/18 04:54 Issues Affecting Care:: None Knowledge of Condition:: Yes Hospital Course Pain Description: Sharp, Burning Cardiac Cath Date:: 08/03/18 Medical/Surgical History CAD:: Yes COPD:: Yes Diabetes Type II:: Yes PTCA:: Yes - 2018 Discharge/Home/Social Eval Discharge Disposition: Home Marital Status: Cardiac Rehabilitation Info Cardiac Rehabilitation Program Information: Cardiac Rehabilitation is important for patients like you who are recovering from a heart problem. Cardiac rehabilitation programs are recognized as integral to the continued care of the patient with coronary heart disease. The cardiac rehabilitation program is designed to optimize a patient's physical, psychological, and social functioning. Health home health care worker work in cardiac rehabilitation programs and assist you with getting the treatments you need to get stronger and healthier - like exercise, healthy eating habits, and medications. Cardiac rehabilitation has been show to help people with heart problems live longer and have better life enjoyment than people who do not go to cardiac rehabilitation. Please contact the Cardiac Rehabilitation Program at [facility] at in two weeks if you have not heard from them.
--- NOTE | 2018-08-03 13:04 | CRPHASE1_ITS ---
Patient Communication Former Patient:: Phase I PHII Cardiac Rehab Discussed with Patient:: Yes - Dr. tejeda is goig to send patient to [facility] for further evaluation. Guide to Cardiac Rehab Given to Patient:: Yes Cardiac Rehab Facility Choice List Given to Patient:: Yes Pipe Stripper:: Elías Tejeda Risk Factors/Lifestyle Smoking Status: Former smoker Height: 2.27 m Weight:: 102 kg BMI: 19.8 Family History: Heart Disease, Hypertension Laboratory Values: Cardiac Rehab Phase I Labs Triglycerides 356 mg/dL (-199) H 08/03/18 04:54 Cholesterol 192 mg/dL (200) 08/03/18 04:54 LDL Cholesterol 79 mg/dL (0-130) 08/03/18 04:54 HDL Cholesterol 42 mg/dL (40-) 08/03/18 04:54 Issues Affecting Care:: None Knowledge of Condition:: Yes Hospital Course Pain Description: Sharp, Burning Cardiac Cath Date:: 08/03/18 Medical/Surgical History CAD:: Yes COPD:: Yes Diabetes Type II:: Yes PTCA:: Yes - 2018 Discharge/Home/Social Eval Discharge Disposition: Home Marital Status: Cardiac Rehabilitation Info Cardiac Rehabilitation Program Information: Cardiac Rehabilitation is important for patients like you who are recovering from a heart problem. Cardiac rehabilitation programs are recognized as integral to the continued care of the patient with coronary heart disease. The cardiac rehabilitation program is designed to optimize a patient's physical, psychological, and social functioning. Health care aide work in cardiac rehabilitation programs and assist you with getting the treatmen ts you need to get stronger and healthier - like exercise, healthy eating habits, and medications. Cardiac rehabilitation has been show to help people with heart problems live longer and have better life enjoyment than people who do not go to cardiac rehabilitation. Please contact the Cardiac Rehabilitation Program at [facility] at in two weeks if you have not heard from them.
--- NOTE | 2018-08-03 13:04 | CRPH1.INSTRU ---
General Education CAD and cardiac anatomy and function:: Patient communicates acknowledgment Explanation of diagnoses and procedures:: Patient communicates acknowledgment Smoking Patient Nicotine/Smoking Risk Factors Are:: Non-smoker Dyslipidemia Patient Dyslipidemia Risk Factors Are:: Total Cholesterol Recommendations Include:: Lipid profile provided Overweight/Obesity Patient Overweight/Obesity Risk Factors Are:: BMI Normal [24-29 & > 65 years old] Hypertension Recommendations Include:: Maintain BP <130/85, BP <130/80 if diabetic - on meds, DASH dietary guidelines Heart Disease Patient Heart Disease Risk Factors Are:: Previous cardiac event Heart Disease Response Code:: Patient communicates acknowledgment Diabetes Diabetes:: Patient communicates acknowledgment Metabolic Syndrome Patient Metabolic Syndrome Risk Factors Are [3 of 5]:: Waist circumference > 35 [female] or 40 [male], High triglyceride >150, Hypertension Sedentary Sedentary Response Code:: Patient communicates acknowledgment Stress Patient Stress Risk Factors Are:: Patient denies stress as a risk factor
[2018-08-03 13:15] LABS: ACT Activated Clotting Time 136 sec (74-137)
--- NOTE | 2018-08-03 13:25 | PCM.PN.HOSP ---
Subjective: Patient seen and examined. He was admitted with a complaint of intermittent left sided chest pain worsened by exertion and relieved by rest. He does have a history of CAD and had a stent placement to his circumflex artery in August 2017. 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 Patient seen after Cath; he was transferred up to ICU on nitro drip. He complained of mild chest pain; he denied any fever, chills, cough, abdominal pain, diarrhea or vomiting. Review of systems is otherwise negative. Labs and vitals reviewed. Vitals/I&O's: Vital Signs Temp Pulse Resp BP Pulse Ox 98.3 F 55 L 16 158/93 H 96 08/03/18 06:12 08/03/18 08:05 08/03/18 06:12 08/03/18 06:12 08/03/18 06:12 Oxygen Delivery Method Room Air Weight: 224 lb 13.944 oz Body Mass Index (BMI) 33.0 Finger Stick Blood Glucose 103 Intake and Output for Last 24 Hours 08/01/18 08/02/18 08/03/18 23:59 23:59 23:59 Intake Total 600 / 600 200 / 200 Output Total 300 / 300 950 / 950 Balance 300 / 300 -750 / -750 General: Alert, Oriented x3, Cooperative, No apparent distress HEENT: Atraumatic, PERRLA, EOMI, Normocephalic Oral: Moist Mucosa Neck: Supple, No JVD, Negative Carotid Bruits Lungs: Clear to auscultation, Normal air movement, No rhonchi, No wheeze, No rales Cardiovascular: Regular rate, Regular Rhythm, Normal S1, Normal S2, No murmurs Abdomen: Bowel Sounds Present, Soft, Non Tender, Non-Distended, No Hepato-splenomegaly Extremities: No clubbing, No cyanosis, No edema, Capillary Refill Less than 3 Seconds, - - sheath in right groin Skin: No rashes, No breakdown Musculoskeletal: No Tenderness to Palpation of Joints or Extremities Lymphatic: No Cervical, Supraclavicular, or Inguinal Adenopathy Neurological: Cranial nerves II-XII grossly intact, Neuro grossly intact, Motor Exam 5/5 strength throughout Psych/Mental Status: Normal Affect, Appropriate, Alert and oriented to time, place, person, mood and affect Laboratory Results 08/02/18 14:15: WBC 9.2, RBC 5.45, Hgb 15.8, Hct 48.4, MCV 88.8, MCH 29.0, MCHC 32.6, RDW 14.0, RDW Differential 45.5 H, Plt Count 128 L, MPV 11.8, Immature Gran % (Auto) 0.200, Neut % (Auto) 77.4 H, Lymph % (Auto) 15.4 L, [place] % (Auto) 6.6, Eos % (Auto) 0.2, Baso % (Auto) 0.2, Absolute Neuts (auto) 7.1, Absolute Lymphs (auto) 1.41, Total Counted Not Reportable 08/02/18 14:15: Sodium 139, Potassium 3.6, Chloride 107, Carbon Dioxide 25.0, Anion Gap 7, BUN 18, Creatinine 1.52 H, Estim Creat Clear Calc 43.28, Est GFR (MDRD) Af Amer 58 L, Est GFR (MDRD) Non-Af 48 L, BUN/Creatinine Ratio 11.8, Glucose 196 H, Calcium 8.3 L, Troponin I < 0.015 08/02/18 17:45: Troponin I < 0.015 08/02/18 20:45: Troponin I < 0.015 08/02/18 21:17: Urine Color Yellow, Urine Clarity Clear, Urine pH 5.0, Ur Specific [place] 1.020, Urine Protein Negative, Urine Glucose (UA) Normal, Urine Ketones Negative, Urine Occult Blood Negative, Urine Nitrite Negative, Urine Bilirubin Negative, Urine Urobilinogen Normal, Ur Leukocyte Esterase Negative, Urine RBC 0 SEEN, Urine WBC 0 SEEN, Ur Squamous Epith Cells 0 SEEN, Urine Bacteria 0 SEEN, Urine Mucus RARE 08/03/18 04:54: Sodium 142, Potassium 4.1, Chloride 109 H, Carbon Dioxide 26.0, Anion Gap 7, BUN 21 H, Creatinine 1.45 H, Estim Creat Clear Calc 45.37, Est GFR (MDRD) Af Amer 61, Est GFR (MDRD) Non-Af 51 L, BUN/Creatinine Ratio 14.5, Glucose 117 H, Calcium 8.4 L, Triglycerides 356 H, Cholesterol 192, LDL Cholesterol 79, VLDL Cholesterol 71 H, HDL Cholesterol 42 08/03/18 04:54: WBC 8.1, RBC 5.24, Hgb 15.0, Hct 47.0, MCV 89.7, MCH 28.6, MCHC 31.9 L, RDW 14.1, RDW Differential 46.3 H, Plt Count 126 L, MPV 12.7 H, Immature Gran % (Auto) 0.700, Neut % (Auto) 58.4, Lymph % (Auto) 29.1, [place] % (Auto) 10.4 H, Eos % (Auto) 1.0, Baso % (Auto) 0.4, Absolute Neuts (auto) 4.7, Absolute Lymphs (auto) 2.35, Total Counted Not Reportable 08/03/18 04:54: PT 13.4, INR 1.0, APTT 29.7 08/03/18 06:27: POC Glucose 118 H 08/03/18 13:03: Activated Clotting Time 136 Current Medications Acetaminophen (Tylenol) 650 mg PO Q6H PRN PRN PRN Reason: Mild Pain (1-3)/Temp > 100.7 F Aspirin (Ecotrin) 81 mg PO DAILY@0800 [facility] Last Admin: 08/03/18 06:17 Dose: 81 mg Atropine Sulfate () 0.5 mg IV UD PRN PRN Reason: HR <50 bpm Cholecalciferol (Vitamin D) 4,000 unit PO DAILY [facility] Clopidogrel Bisulfate (Plavix) 75 mg PO DAILY [facility] Last Admin: 08/03/18 06:17 Dose: 75 mg Cyanocobalamin (Vitamin B12) 1,000 mcg PO DAILY@0800 [facility] Furosemide (Lasix) 20 mg PO DAILY [facility] Glimepiride (Amaryl) 1 mg PO DAILY@0800 [facility] Heparin Sodium (Beef Lung) (Heparin 500 Unit/5 Ml (100/Ml)) 500 unit IV UD PRN PRN Reason: HEPARIN FLUSH Sodium Chloride () 1,000 mls @ 0 mls/hr IV .Q0M [facility] Last Admin: 08/03/18 06:16 Dose: 15 mls/hr Sodium Chloride () 1,000 mls @ 0 mls/hr IV .Q0M [facility] Sodium Chloride () 1,000 mls @ 150 mls/hr IV .Q6H40M [facility] Stop: 08/03/18 17:09 Isosorbide Mononitrate (Imdur) 60 mg PO BID [facility] Labetalol HCl (Trandate) 5 mg IV X1 PRN PRN Reason: SBP > 160 when pulling sheath Stop: 08/05/18 10:26 Magnesium Hydroxide (Milk Of Magnesia) 30 ml PO DAILY PRN PRN Reason: Constipation Magnesium Oxide (Mag-Ox 400) 800 mg PO DAILY [facility] Metoprolol Tartrate (Lopressor (Beta Kale)) 25 mg PO BID [facility] Last Admin: 08/03/18 06:17 Dose: 25 mg Morphine Sulfate () 2 - 4 mg IV Q4H PRN PRN PRN Reason: MOD-SEVERE PAIN (4-10/10) Nitroglycerin (Nitrostat) 0.4 mg SUBLINGUAL Q5M PRN PRN Reason: CHEST PAIN Ondansetron HCl (Zofran) 4 mg IV Q8H PRN PRN PRN Reason: NAUSEA Oxycodone HCl (Oxyir) 5 mg PO Q4H PRN PRN PRN Reason: MOD-SEVERE PAIN (4-10/10) Pantoprazole Sodium (Protonix) 40 mg PO BID [facility] Last Admin: 08/02/18 22:20 Dose: 40 mg Potassium Chloride (K-Dur) 20 meq PO BID [facility] Last Admin: 08/02/18 22:20 Dose: 20 meq Pravastatin Sodium (Pravachol) 20 mg PO QHS [facility] Last Admin: 08/02/18 22:20 Dose: 20 mg Sodium Chloride () 5 - 15 ml IV UD PRN PRN Reason: SALINE FLUSH Last Admin: 08/03/18 06:18 Dose: 10 ml Sodium Chloride () 500 ml IV BOLUS PRN PRN Reason: VASO-VAGAL PROTOCOL Spironolactone (Aldactone) 50 mg PO DAILY [facility] Venlafaxine HCl (Effexor Xr) 150 mg PO DAILY [facility] Medical Necessity - Tobacco Use Smoking Status: Former smoker Assessment/Plan All Active Problems (Last Updated 08/03/18 @ 11:41 by Maria R Bautista) Chest pain (Acute) 1. Unstable angina s/p cardiac cath admitted with chest pain; was taken straight to cardiac cath o/a of abnormal stress tests cath showed proximal circumflex had moderate luminal irregularities up to 50% with in-stent restenosis of 85%. 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 Diabetes mellitus; on ISS, accuchecks ACHS. On glimepiride also 3. Hypertension: on spironolactone, metoprolol 4. Thrombocytopenia; platelets were 128 on admission, now 126. Platelets were 131 back in April 2018. Will monitor. 5. CKD 3: Cr was 1.52 hoda dmisison, now down to 1.45. Baseline is ~ 1.2. Will monitor DVT prophylaxis: heparin Code Visit Inpatient E&M: 23402 Subs Hosp L3
--- NOTE | 2018-08-03 14:06 | PN_ITS ---
Subjective: Patient seen and examined. He was admitted with a complaint of intermittent left sided chest pain worsened by exertion and relieved by rest. He does have a history of CAD and had a stent placement to his circumflex artery in August 2017. 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 Patient seen after Cath; he was transferred up to ICU on nitro drip. He complained of mild chest pain; he denied any fever, chills, cough, abdominal pain, diarrhea or vomiting. Review of systems is otherwise negative. Labs and vitals reviewed. Vitals/I&O's: Vital Signs Temp Pulse Resp BP Pulse Ox 98.3 F 55 L 16 158/93 H 96 08/03/18 06:12 08/03/18 08:05 08/03/18 06:12 08/03/18 06:12 08/03/18 06:12 Oxygen Delivery Method Room Air Weight: 224 lb 13.944 oz Body Mass Index (BMI) 33.0 Finger Stick Blood Glucose 103 Intake and Output for Last 24 Hours 08/01/18 08/02/18 08/03/18 23:59 23:59 23:59 Intake Total 600 / 600 200 / 200 Output Total 300 / 300 950 / 950 Balance 300 / 300 -750 / -750 General: Alert, Oriented x3, Cooperative, No apparent distress HEENT: Atraumatic, PERRLA, EOMI, Normocephalic Oral: Moist Mucosa Neck: Supple, No JVD, Negative Carotid Bruits Lungs: Clear to auscultation, Normal air movement, No rhonchi, No wheeze, No rales Cardiovascular: Regular rate, Regular Rhythm, Normal S1, Normal S2, No murmurs Abdomen: Bowel Sounds Present, Soft, Non Tender, Non-Distended, No Hepato- splenomegaly Extremities: No clubbing, No cyanosis, No edema, Capillary Refill Less than 3 Seconds, - - sheath in right groin Skin: No rashes, No breakdown Musculoskeletal: No Tenderness to Palpation of Joints or Extremities Lymphatic: No Cervical, Supraclavicular, or Inguinal Adenopathy Neurological: Cranial nerves II-XII grossly intact, Neuro grossly intact, Motor Exam 5/5 strength throughout Psych/Mental Status: Normal Affect, Appropriate, Alert and oriented to time, place, person, mood and affect Laboratory Results 08/02/18 14:15: WBC 9.2, RBC 5.45, Hgb 15.8, Hct 48.4, MCV 88.8, MCH 29.0, MCHC 32.6, RDW 14.0, RDW Differential 45.5 H, Plt Count 128 L, MPV 11.8, Immature Gran % (Auto) 0.200, Neut % (Auto) 77.4 H, Lymph % (Auto) 15.4 L, [place] % (Auto) 6.6, Eos % (Auto) 0.2, Baso % (Auto) 0.2, Absolute Neuts (auto) 7.1, Absolute Lymphs (auto) 1.41, Total Counted Not Reportable 08/02/18 14:15: Sodium 139, Potassium 3.6, Chloride 107, Carbon Dioxide 25.0, Anion Gap 7, BUN 18, Creatinine 1.52 H, Estim Creat Clear Calc 43.28, Est GFR (MDRD) Af Amer 58 L, Est GFR (MDRD) Non-Af 48 L, BUN/Creatinine Ratio 11.8, Glucose 196 H, Calcium 8.3 L, Troponin I < 0.015 08/02/18 17:45: Troponin I < 0.015 08/02/18 20:45: Troponin I < 0.015 08/02/18 21:17: Urine Color Yellow, Urine Clarity Clear, Urine pH 5.0, Ur Specific [place] 1.020, Urine Protein Negative, Urine Glucose (UA) Normal, Urine Ketones Negative, Urine Occult Blood Negative, Urine Nitrite Negative, Urine Bilirubin Negative, Urine Urobilinogen Normal, Ur Leukocyte Esterase Negative, Urine RBC 0 SEEN, Urine WBC 0 SEEN, Ur Squamous Epith Cells 0 SEEN, Urine Bacteria 0 SEEN, Urine Mucus RARE 08/03/18 04:54: Sodium 142, Potassium 4.1, Chloride 109 H, Carbon Dioxide 26.0, Anion Gap 7, BUN 21 H, Creatinine 1.45 H, Estim Creat Clear Calc 45.37, Est GFR (MDRD) Af Amer 61, Est GFR (MDRD) Non-Af 51 L, BUN/Creatinine Ratio 14.5, Glucose 117 H, Calcium 8.4 L, Triglycerides 356 H, Cholesterol 192, LDL Cholesterol 79, VLDL Cholesterol 71 H, HDL Cholesterol 42 08/03/18 04:54: WBC 8.1, RBC 5.24, Hgb 15.0, Hct 47.0, MCV 89.7, MCH 28.6, MCHC 31.9 L, RDW 14.1, RDW Differential 46.3 H, Plt Count 126 L, MPV 12.7 H, Immature Gran % (Auto) 0.700, Neut % (Auto) 58.4, Lymph % (Auto) 29.1, [place] % (Auto) 10.4 H, Eos % (Auto) 1.0, Baso % (Auto) 0.4, Absolute Neuts (auto) 4.7, Absolute Lymphs (auto) 2.35, Total Counted Not Reportable 08/03/18 04:54: PT 13.4, INR 1.0, APTT 29.7 08/03/18 06:27: POC Glucose 118 H 08/03/18 13:03: Activated Clotting Time 136 Current Medications Acetaminophen (Tylenol) 650 mg PO Q6H PRN PRN PRN Reason: Mild Pain (1-3)/Temp > 100.7 F Aspirin (Ecotrin) 81 mg PO DAILY@0800 [facility] Last Admin: 08/03/18 06:17 Dose: 81 mg Atropine Sulfate () 0.5 mg IV UD PRN PRN Reason: HR <50 bpm Cholecalciferol (Vitamin D) 4,000 unit PO DAILY [facility] Clopidogrel Bisulfate (Plavix) 75 mg PO DAILY [facility] Last Admin: 08/03/18 06:17 Dose: 75 mg Cyanocobalamin (Vitamin B12) 1,000 mcg PO DAILY@0800 [facility] Furosemide (Lasix) 20 mg PO DAILY [facility] Glimepiride (Amaryl) 1 mg PO DAILY@0800 [facility] Heparin Sodium (Beef Lung) (Heparin 500 Unit/5 Ml (100/Ml)) 500 unit IV UD PRN PRN Reason: HEPARIN FLUSH Sodium Chloride () 1,000 mls @ 0 mls/hr IV .Q0M [facility] Last Admin: 08/03/18 06:16 Dose: 15 mls/hr Sodium Chloride () 1,000 mls @ 0 mls/hr IV .Q0M [facility] Sodium Chloride () 1,000 mls @ 150 mls/hr IV .Q6H40M [facility] Stop: 08/03/18 17:09 Isosorbide Mononitrate (Imdur) 60 mg PO BID [facility] Labetalol HCl (Trandate) 5 mg IV X1 PRN PRN Reason: SBP > 160 when pulling sheath Stop: 08/05/18 10:26 Magnesium Hydroxide (Milk Of Magnesia) 30 ml PO DAILY PRN PRN Reason: Constipation Magnesium Oxide (Mag-Ox 400) 800 mg PO DAILY [facility] Metoprolol Tartrate (Lopressor (Beta Kale)) 25 mg PO BID [facility] Last Admin: 08/03/18 06:17 Dose: 25 mg Morphine Sulfate () 2 - 4 mg IV Q4H PRN PRN PRN Reason: MOD-SEVERE PAIN (4-10/10) Nitroglycerin (Nitrostat) 0.4 mg SUBLINGUAL Q5M PRN PRN Reason: CHEST PAIN Ondansetron HCl (Zofran) 4 mg IV Q8H PRN PRN PRN Reason: NAUSEA Oxycodone HCl (Oxyir) 5 mg PO Q4H PRN PRN PRN Reason: MOD-SEVERE PAIN (4-10/10) Pantoprazole Sodium (Protonix) 40 mg PO BID [facility] Last Admin: 08/02/18 22:20 Dose: 40 mg Potassium Chloride (K-Dur) 20 meq PO BID [facility] Last Admin: 08/02/18 22:20 Dose: 20 meq Pravastatin Sodium (Pravachol) 20 mg PO QHS [facility] Last Admin: 08/02/18 22:20 Dose: 20 mg Sodium Chloride () 5 - 15 ml IV UD PRN PRN Reason: SALINE FLUSH Last Admin: 08/03/18 06:18 Dose: 10 ml Sodium Chloride () 500 ml IV BOLUS PRN PRN Reason: VASO-VAGAL PROTOCOL Spironolactone (Aldactone) 50 mg PO DAILY [facility] Venlafaxine HCl (Effexor Xr) 150 mg PO DAILY [facility] Medical Necessity - Tobacco Use Smoking Status: Former smoker Assessment/Plan All Active Problems (Last Updated 08/03/18 @ 11:41 by Maria R Bautista) Chest pain (Acute) 1. Unstable angina s/p cardiac cath * admitted with chest pain; was taken straight to cardiac cath o/a of abnormal stress tests * cath showed proximal circumflex had moderate luminal irregularities up to 50% with in-stent restenosis of 85%. 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 Diabetes mellitus; on ISS, accuchecks ACHS. On glimepiride also 3. Hypertension: on spironolactone, metoprolol 4. Thrombocytopenia; platelets were 128 on admission, now 126. Platelets were 131 back in April 2018. Will monitor. 5. CKD 3: Cr was 1.52 hoda dmisison, now down to 1.45. Baseline is ~ 1.2. Will monitor DVT prophylaxis: heparin Code Visit Inpatient E&M: 07911 [facility] Hosp L3
[2018-08-03 14:25] LABS: ACT Activated Clotting Time 224 sec (74-137)
--- NOTE | 2018-08-03 14:58 | CASEMGMT ---
RN [employer] CM to room to meet with patient for initial transition planning/care coordination assessment. ALEX SANTOS introduced self and role at [facility]. Pt voices understanding and consents to assessment at this time. Pt resting in bed in no distress at this time. Pt is A/O at this time and answers all questions appropriately. Care providers, pharmacy, and demographics verified/updated at this time. PCP: Marly Specialists: Ishan Monroe Pharmacy: [facility] Insurance: [facility], MMO Prescription Benefit: [employer] Living Will/HPOA: States just recently filled out paperwork with an traffic law attorney but he has not signed it yet. Made aware once it is completed, he can bring in to [facility] to have placed on file in medical records. LNOK: , daughter, son Living Arrangements: Lives in one-story home. 3 or 4 steps to enter w/rails. Basement with rails. States takes it easy when I go up and down them. Independent. Transportation: Pt states drives self and states no transportation concerns at this time. or dtr can drive him home on d/c. DME: States has/uses the following DME: cane, lift chair, CPAP, hand-held shower, rails/grab bars. Has but does not use the following: Shower chair Pt states no need for further DME at this time. HHC/SNF: No history of either. Denies needs for HHC. Pt wishes to return home and states has no concerns with going home at time of dischargeCM to follow for any discharge planning/needs. Pt voices no further concerns/needs at this time. Advised pt to ask for CM if any further questions/concerns/needs arise. Voices understanding. PLAN: Home Ab MINOR RN, CM
[2018-08-03] MEDS: Venlafaxine XR 150 MG Capsule PO (17:11)
[2018-08-03] MEDS: Cyanocobalamin 500 MCG Tablet 1000 MCG PO (17:11)
[2018-08-03] MEDS: Glimepiride 1 MG Tablet PO (17:11)
[2018-08-03] MEDS: Magnesium Oxide 400 MG Tablet 800 MG PO (17:12)
[2018-08-03 17:25] LABS: Bedside Glucose 162 mg/dL (70-110)
[2018-08-03] MEDS: Morphine 2 MG/ML Syringe IV (20:27)
[2018-08-03] MEDS: Ondansetron 4 MG/2 ML Vial IV (20:27)
[2018-08-03] MEDS: Pantoprazole Sodium 40 MG Tablet PO (20:27)
[2018-08-03] MEDS: Pravastatin 20 MG Tablet PO (20:27)
[2018-08-03] MEDS: oxyCODONE 5 MG Tablet PO (21:52)
[2018-08-04] VITALS (18 sets, daily range): BP systolic 99–152; BP diastolic 44–99; PULSE 60–99; RESP 12–24; TEMP 36.9–37; O2SAT 90–94
[2018-08-04 04:30] LABS: Hematocrit 42.5 % (40-54); Hemoglobin 13.6 g/dl (13.0-16.5); Mean Corpuscular Hgb 29.1 pg (27.0-32.0); Mean Corpuscular Volume 90.8 fL (80-94); Platelet Count 117 K/mm3 (150-450); RBC Distribution Width CV 14.3 % (11.6-14.6); RBC Distribution Width SD 46.9 fl (35.1-43.9); Red Blood Count 4.68 M/mm3 (4.6-6.2); White Blood Count 8.3 K/mm3 (4.4-11.0)
[2018-08-04 04:32] LABS: Scan Indicated on CBC? Y/N NO
[2018-08-04 04:59] LABS: Anion Gap 6 (5-15); BUN 21 mg/dL (7-18); BUN/Creat Ratio 14.4 RATIO (10-20); Calcium,Total 8.4 mg/dL (8.5-10.1); Chloride 107 mmol/L (98-107); Cholesterol 177 mg/dL (200); Creatinine, Serum 1.46 mg/dL (0.70-1.30); EST Glomerular Filtration Rate 50 mL/min (>60); Est Glom Filt Rate - Afr Amer 61 mL/min (>60); Estimated Creatinine Clearance 65.01 ml/min; Glucose 139 mg/dL (74-106); High Density Lipoprotein 33 mg/dL; Potassium 4.2 mmol/L (3.5-5.1); Sodium Level 143 mmol/L (136-145); Triglycerides 434 mg/dL
--- NOTE | 2018-08-04 10:00 | EKG12_ITS ---
Test Reason : AM EKG Blood Pressure : / mmHG Vent. Rate : 063 BPM Atrial Rate : 063 BPM P-R Int : 168 ms QRS Dur : 084 ms QT Int : 390 ms P-R-T Axes : 068 064 079 degrees QTc Int : 399 ms Normal sinus rhythm Normal ECG When compared with ECG of 03-AUG-2018 05:15, MANUAL COMPARISON REQUIRED, DATA IS UNCONFIRMED Confirmed by NAOMIE PALOMO, PARVEZ ([id number]), image editor VERONICA SCOTT ([id number]) on 08/08/2018 1:26:52 PM Referred By: LEORA Confirmed By:PARVEZ AKBAR MD
[2018-08-04] MEDS: Furosemide 20 MG Tablet PO (10:04)
[2018-08-04] MEDS: Isosorbide Mononitrate 60 MG Tablet PO (10:05)
[2018-08-04] MEDS: Pantoprazole Sodium 40 MG Tablet PO (10:13)
[2018-08-04] MEDS: Metoprolol Tartrate 25 MG Tablet PO (10:13)
[2018-08-04] MEDS: Aspirin E.C. 81 MG Tablet PO (10:13)
[2018-08-04] MEDS: Magnesium Oxide 400 MG Tablet 800 MG PO (10:13)
[2018-08-04] MEDS: Clopidogrel Bisulfate 75 MG Tablet PO (10:13)
[2018-08-04] MEDS: Venlafaxine XR 150 MG Capsule PO (10:37)
[2018-08-04] MEDS: Glimepiride 1 MG Tablet PO (10:38)
[2018-08-04] MEDS: Cyanocobalamin 500 MCG Tablet 1000 MCG PO (10:38)
[2018-08-04] MEDS: Spironolactone 50 MG Tablet PO (10:38)
[2018-08-04] MEDS: 0.9% NaCl Peripheral Flush Adult/Peds IV (10:41)
[2018-08-04] MEDS: Ondansetron 4 MG/2 ML Vial IV (10:41)
[2018-08-04] MEDS: Morphine 2 MG/ML Syringe IV (10:41)
--- NOTE | 2018-08-04 11:30 | DCINST_ITS ---
- Discharge Diagnoses Current Active Problems: Current Active and Chronic Problems (Last Updated 08/03/18 @ 11:41 by Maria R Bautista) CAD (coronary artery disease) (Chronic) You will use the following diet at home:: Cardiac Your food should be the consistency of: Regular Your liquids should be the consistency of: Regular/Thin Discharge Activity: Return to Normal Activity Weight Bearing Status: Weight bearing as tolerated Call your doctor if you observe: Shortness of breath, Chest pain Instructions: Discharge Instructions for Angina, Warning Signs of a Heart Attack, Recognizing a Heart Attack or Angina Additional Instructions: WIll be referred to [facility] for further cardiac evaluation by Dr Olmstead after he follows up with him in the office in one week. Please don't undertake any strenous activity at home. Allergies/Adverse Reactions: Allergies No Known Allergies Allergy (Verified 04/12/18 13:16) Medications to take at Discharge Aspirin E.C. [Ecotrin] 81 mg PO DAILY@0800 01/21/17 Venlafaxine XR [Effexor Xr] 150 mg PO DAILY 11/30/17 Cyanocobalamin [Vitamin B12] 1,000 mcg PO DAILY@0800 04/12/18 Glimepiride [Amaryl] 1 mg PO DAILY 04/12/18 Magnesium Oxide [Mag-Ox 400] 800 mg PO DAILY 04/12/18 clopidogrel 75 mg tablet 75 mg PO DAILY #90 tab 06/09/18 furosemide 20 mg tablet 20 mg PO DAILY #90 tab 06/09/18 metoprolol tartrate 25 mg tablet 25 mg PO BID #180 tab 06/09/18 nitroglycerin 0.4 mg sublingual tablet 0.4 mg SUBLINGUAL Q5-15M PRN #25 tab 06/09/18 pantoprazole 40 mg tablet,delayed release 40 mg PO BID #180 tab 06/09/18 potassium chloride ER 20 mEq tablet,extended release(part/cryst) 20 meq PO BID #180 tab 06/09/18 pravastatin 20 mg tablet 20 mg PO QHS #90 tab 06/09/18 spironolactone 50 mg tablet 50 mg PO DAILY #90 tab 06/09/18 Cholecalciferol (Vitamin D3) [Vitamin D3] 4,000 unit PO DAILY 08/02/18 isosorbide mononitrate ER 60 mg tablet,extended release 24 hr 60 mg PO BID #180 tab 08/03/18 The following prescriptions were given: isosorbide mononitrate ER 60 mg tablet,extended release 24 hr 60 mg PO BID #180 tab Orders to be completed after discharge: Phase II, Outpatient Cardiac Rehab Location: None Selected Primary Care Physician: Victor M Luke DO [Primary Care Provider] - Please follow up with your Primary Care Physician in: one week Test Results: Test results from this visit will be discussed in further detail at your follow- up appointment, if applicable. Please Follow Up With: Elías Olmstead MD When: one week Proposed Discharge Date: 08/04/18
--- NOTE | 2018-08-04 11:30 | DS.PCM_ITS ---
Discharge Date and Diagnosis Date of Admission: 08/02/18 Date of Discharge: 08/04/18 - Primary Discharge Diagnosis unstable angina - Secondary Discharge Diagnosis Chronic Problems (Last Updated 08/03/18 @ 11:41 by Maria R Bautista) COPD (chronic obstructive pulmonary disease) (Chronic) 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.9) (Chronic) MATTHEW (obstructive sleep apnea) (Chronic) CKD (chronic kidney disease) stage 3, GFR 30-59 ml/min (Chronic) CAD (coronary artery disease) (Chronic) Atherosclerotic heart disease [place] coronary artery w/angina pectoris (Chronic) Normal LV size, wall motion,and systolic function Normal Left Ventricular systolic function Normal LV size, wall motion,and systolic function LVEF: by LV gram 65 % Normal Left Ventricular End Diastolic Pressure 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 Procedure aborted. No complications. 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 Procedure aborted. No complications. 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 Findings suggestive of linear scarring at the left lung base as well as bilateral pleural thickening and multiple healed rib fractures. Electronically Signed: Constantin Lee, at 14:27 EDT , Service support , cardiology- Dr Olmstead Operations: None Procedures: 2-D Echocardiogram, Cardiac catheterization Summary of Care Provided: The patient is a 73 year old M with an extensive past medical history which includes CAD status post stents as well as hypertension diabetes. He was admitted with a complaint of chest pain for 1 week prior to admission which was worsened by exertion and relieved by rest. Chest pain was left-sided and radiated down his left arm. He had previously been to the ED where he had had a cardiac workup that was negative. Pain however persisted so he decided to come back to the ED. Of note, patient had had a stent placed in the circumflex artery in August 2017 and also had a cardiac cath subsequent to that which was negative. He was admitted and managed for unstable angina. He was continued on aspirin and Plavix and cardiology was consulted. He had a cardiac cath on 08/04/2018 which showed in-stent stenosis of the stent in his circumflex artery as well as proximal circumflex artery having up to 50% stenosis. There was unsuccessful because of anomalous left circumflex artery and therefore stenting was not possible. Patient was transferred to the ICU after the cardiac cath for closer monitoring and was on nitroglycerin drip. He was subsequently weaned off nitroglycerin drip. He was continued on aspirin and Plavix. He remained stable and was discharged home on 08/04/2018. He is to follow-up with cardiology within a week. Per cardiology, plan is to refer patient to [facility] for cardiac catheterization and further assessment of the instent thrombosis and proximal circumflex artery stenosis. Patient seen and examined prior to discharge. He had some mild chest pain overnight. Had resolved at time of review. Review of systems is otherwise negative. Labs and vitals reviewed. Home medications reviewed and reconciled. She talks excessively being pulled out and he had been weaned off nitro drip. o/e: Vital Signs Height 7 ft 5.37 in Weight: 224 lb 13.944 oz Weight in Pounds 224.0 lbs BMI 19.8 Pulse Ox 91 Temperature 98.4 F Pulse Rate 99 Respiratory Rate 20 Blood Pressure [2nd BP] 145/99 Blood Pressure 137/81 Blood Pressure Position [2nd Semi-Fowlers BP] Blood Pressure Position Semi-Fowlers General: Alert, Oriented x3, Cooperative, No apparent distress HEENT: Atraumatic, PERRLA, EOMI, Normocephalic Oral: Moist Mucosa Neck: Supple, No JVD, Negative Carotid Bruits Lungs: Clear to auscultation, Normal air movement, No rhonchi, No wheeze, No rales Cardiovascular: Regular rate, Regular Rhythm, Normal S1, Normal S2, No murmurs Abdomen: Bowel Sounds Present, Soft, Non Tender, Non-Distended, No Hepato- splenomegaly Extremities: No clubbing, No cyanosis, No edema, Capillary Refill Less than 3 Seconds, - - right groin sheath removed; right groin dressing is clean; no swelling or tenderness Skin: No rashes, No breakdown Musculoskeletal: No Tenderness to Palpation of Joints or Extremities Lymphatic: No Cervical, Supraclavicular, or Inguinal Adenopathy Neurological: Cranial nerves II-XII grossly intact, Neuro grossly intact, Motor Exam 5/5 strength throughout Psych/Mental Status: Normal Affect, Appropriate, Alert and oriented to time, place, person, mood and affect Patient was counseled by cardiology that he would have recurrent chest pain symptoms due to the in-stent restenosis as well as episodes of hypertension induced angina. Imdur was increased to 60 mg twice daily. He is also continue his hypertensive medications. - Physical Exam Vital Signs Temp Pulse Resp BP Pulse Ox 98.6 F 79 17 122/76 H 92 08/04/18 08:00 08/04/18 11:00 08/04/18 11:00 08/04/18 11:00 08/04/18 11:00 Oxygen Delivery Method Room Air Weight: 224 lb 13.944 oz Body Mass Index (BMI) 33.0 Finger Stick Blood Glucose 103 Intake and Output for Last 24 Hours 08/02/18 08/03/18 08/04/18 23:59 23:59 23:59 Intake Total 600 / 600 2400 / 2400 450 / 450 Output Total 300 / 300 1575 / 1575 600 / 600 Balance 300 / 300 825 / 825 -150 / -150 Laboratory Tests Past 24 Hrs 08/03/18 08/03/18 08/04/18 10:22 13:03 04:20 WBC 8.3 RBC 4.68 Hgb 13.6 Hct 42.5 MCV 90.8 MCH 29.1 MCHC 32.0 RDW 14.3 RDW Differential 46.9 H Plt Count 117 L MPV 12.0 Activated Clotting Time 224 H 136 Sodium Potassium Chloride Carbon Dioxide Anion Gap BUN Creatinine Estim Creat Clear Calc Est GFR (MDRD) Af Amer Est GFR (MDRD) Non-Af BUN/Creatinine Ratio Glucose Calcium Triglycerides Cholesterol LDL Cholesterol VLDL Cholesterol HDL Cholesterol 08/04/18 04:20 WBC RBC Hgb Hct MCV MCH MCHC RDW RDW Differential Plt Count MPV Activated Clotting Time Sodium 143 Potassium 4.2 Chloride 107 Carbon Dioxide 30.0 Anion Gap 6 BUN 21 H Creatinine 1.46 H Estim Creat Clear Calc 65.01 Est GFR (MDRD) Af Amer 61 Est GFR (MDRD) Non-Af 50 L BUN/Creatinine Ratio 14.4 Glucose 139 H Calcium 8.4 L Triglycerides 434 H Cholesterol 177 LDL Cholesterol TNP VLDL Cholesterol TNP HDL Cholesterol 33 L POC Glucose 08/03/18 17:10 POC Glucose 162 H Discharge Diet: Low fat/ Low Cholesterol Discharge Activity: Return to Normal Activity Weight Bearing Status: Weight bearing as tolerated Call your doctor if you observe: Shortness of breath, Chest pain Home Medications: Medications to take at Discharge Aspirin E.C. [Ecotrin] 81 mg PO DAILY@0800 01/21/17 Venlafaxine XR [Effexor Xr] 150 mg PO DAILY 11/30/17 Cyanocobalamin [Vitamin B12] 1,000 mcg PO DAILY@0800 04/12/18 Glimepiride [Amaryl] 1 mg PO DAILY 04/12/18 Magnesium Oxide [Mag-Ox 400] 800 mg PO DAILY 04/12/18 clopidogrel 75 mg tablet 75 mg PO DAILY #90 tab 06/09/18 furosemide 20 mg tablet 20 mg PO DAILY #90 tab 06/09/18 metoprolol tartrate 25 mg tablet 25 mg PO BID #180 tab 06/09/18 nitroglycerin 0.4 mg sublingual tablet 0.4 mg SUBLINGUAL Q5-15M PRN #25 tab 06/09/18 pantoprazole 40 mg tablet,delayed release 40 mg PO BID #180 tab 06/09/18 potassium chloride ER 20 mEq tablet,extended release(part/cryst) 20 meq PO BID #180 tab 06/09/18 pravastatin 20 mg tablet 20 mg PO QHS #90 tab 06/09/18 spironolactone 50 mg tablet 50 mg PO DAILY #90 tab 06/09/18 Cholecalciferol (Vitamin D3) [Vitamin D3] 4,000 unit PO DAILY 08/02/18 isosorbide mononitrate ER 60 mg tablet,extended release 24 hr 60 mg PO BID #180 tab 08/03/18 Following Prescrptions Were Given to Patient: isosorbide mononitrate ER 60 mg tablet,extended release 24 hr 60 mg PO BID #180 tab Other Amb Orders: Phase II, Outpatient Cardiac Rehab Location: None Selected Primary Care Physician: Victor M Luke DO [Primary Care Provider] - Please follow up with your Primary Care Physician in: one week Please Follow Up With: Elías Olmstead MD When: one week Patient Instructions: Recognizing a Heart Attack or Angina, Discharge Instructions for Angina, Warning Signs of a Heart Attack Disposition: Home Minutes spent on discharge:: 45 Patient Condition:: Stable Medical Necessity - Tobacco Use Smoking Status: Former smoker Meaningful Use Info Meaningful Use Diagnoses (Choose all that apply): None applicable Code Visit Inpatient E&M: 30292 Disch Hosp
[2018-08-04] MEDS: oxyCODONE 5 MG Tablet PO (11:46)
--- NOTE | 2018-08-04 12:18 | PN.CARD_ITS ---
Subjectve: Mr. Lane is doing well this morning but did have an episode of chest pain when his blood pressure increased due to anxiety. No EKG changes. Telemetry negative. Right groin is clean/dry/intact. Hemoglobin and creatinine within nominal limits. Objective: Vital Signs Temp Pulse Resp BP Pulse Ox 98.6 F 79 17 122/76 H 92 08/04/18 08:00 08/04/18 11:35 08/04/18 11:00 08/04/18 11:00 08/04/18 11:00 Oxygen Delivery Method Room Air Weight: 224 lb 13.944 oz Body Mass Index (BMI) 33.0 Finger Stick Blood Glucose 103 Intake and Output for Last 24 Hours 08/02/18 08/03/18 08/04/18 23:59 23:59 23:59 Intake Total 600 / 600 2400 / 2400 690 / 690 Output Total 300 / 300 1575 / 1575 1025 / 1025 Balance 300 / 300 825 / 825 -335 / -335 General: Awake, Alert, Oriented x 3 HEENT: PERRL, EOMI, Sclera Non Icteric Neck: Supple, Good ROM, No Lymph Node Enlargement Lungs: Clear to auscultation Cardiovascular: Regular Rhythm, Normal S1, Normal S2, No Murmurs, No Rubs, No Gallops Vascular: No Carotid Bruits, Normal Femoral Pulses, Normal Radial Pulses, Normal Dorsalis Pedal Pulse, Normal Posterior Tibial Pulses Abdomen: Bowel Sounds Present, Soft, Non Tender, No HSM, No Organomegaly Extremities: No Cyanosis, No Clubbing, No edema Neurological: No Focal Motor or Sensory Deficit 08/04/18 04:20: WBC 8.3, RBC 4.68, Hgb 13.6, Hct 42.5, MCV 90.8, MCH 29.1, MCHC 32.0, RDW 14.3, RDW Differential 46.9 H, Plt Count 117 L, MPV 12.0 08/04/18 04:20: Sodium 143, Potassium 4.2, Chloride 107, Carbon Dioxide 30.0, Anion Gap 6, BUN 21 H, Creatinine 1.46 H, Est GFR (MDRD) Af Amer 61, Est GFR (MDRD) Non-Af 50 L, BUN/Creatinine Ratio 14.4, Glucose 139 H, Calcium 8.4 L, Triglycerides 434 H, Cholesterol 177, LDL Cholesterol TNP, VLDL Cholesterol TNP, HDL Cholesterol 33 L Rhythm: EKG: ECHO: Stress Test: Cardiac Cath: PCI: CT Surgery: Holter monitor: EPS: PPM: CXR: Chest CT Scan: Medical Necessity - Tobacco Use Smoking Status: Former smoker Assessment/Plan 1. 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 We tried multiple attempts with multiple wires yesterday to engage in wire the anomalous left circumflex off the right coronary artery but were unable to do so. I recommended the patient be referred to the [facility] interventional team for repeat attempt at his left circumflex off the right coronary artery. He will remain on aspirin and Plavix. Patient most likely have recurrent chest pain symptoms given his fixation on his in-stent restenosis, as well as episodes of hypertension induced angina. Recommend increasing his Imdur to 60 mg p.o. twice daily, patient needs to be on a maximum 120 mg p.o. twice daily prior to his angioplasty in August 2017. We will titrate the Imdur up as an outpatient. In addition he will continue his antihypertensive medications, and then be discharged home once he is ambulated today. I instructed the patient that he most likely will have recurrent chest pain symptoms until his intervention has been completed at the [facility], should this be possible. Advised the patient not to do any heavy lifting, wood chopping, or other extreme activities. The patient is voiced understanding and agrees. He is currently Sorin on antianxiety medications and this will continue. Patient had previously tried Ranexa therapy which was not successful and declines it at this time. 2. Patient may be discharged home, follow-up with Dr. Olmstead going forward. Code Visit Inpatient E&M: 35953 Subs Hosp L2
--- NOTE | 2018-08-05 11:57 | CASEMGMT ---
RN DANIELLE DC Phone Call DC DATE: 08/04/18 DC Disposition: Home LACE/STRATA: 01/03 Intro role of CM to patient via phone. Pt states he is doing well, no questions re: home going prescriptions, f/u or instructions. Pt states he has f/u next Wednesday. No care improvement suggestions given, pt states his care was very good. Milton EUBANKSN RN ACM
== END 2018-08-04 13:40 | disposition home or self-care (01) | DRG 287 ==
LOC: ED 15:04 → PCU 15:18 → ICU 08-03 14:17
PROVIDERS: Internal Medicine Cardiovascular Disease; Emergency Provider Emergency Medicine; Family Provider Family Medicine; PCP Family Medicine; Visit Provider Student in an Organized Health Care Education/Training Program
DX: I25.110 Atherosclerotic heart disease of native coronary artery with unstable angina pectoris (principal); T82.858A Stenosis of other vascular prosthetic devices, implants and grafts, initial encounter; Q24.5 Malformation of coronary vessels; I25.2 Old myocardial infarction; G47.33 Obstructive sleep apnea (adult) (pediatric); E78.5 Hyperlipidemia, unspecified; Z95.5 Presence of coronary angioplasty implant and graft; E66.9 Obesity, unspecified; Z68.33 Body mass index [BMI] 33.0-33.9, adult; I12.9 Hypertensive chronic kidney disease with stage 1 through stage 4 chronic kidney disease, or unspecified chronic kidney disease; E11.22 Type 2 diabetes mellitus with diabetic chronic kidney disease; N18.3 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, stage 3 (moderate); Z87.891 Personal history of nicotine dependence; Z79.02 Long term (current) use of antithrombotics/antiplatelets; Z79.82 Long term (current) use of aspirin; J44.9 Chronic obstructive pulmonary disease, unspecified
CPT/HCPCS: 36415; 71045; 80048; 80061; 81001; 82962; 84484; 85025; 85027; 85347; 85610; 85730; 93005; 93306; 93458; 99285; J7030; Q9957; Q9967; A4216; C1725; C1769; C1887; C1894; C8929; J2405

== ENCOUNTER 2018-08-08 19:48 | Observation (INO) | payer MEDICARE, OTHER, SELFPAY ==
[2018-08-02 15:40] VITALS: BMI 33.0
[2018-08-03 13:04] VITALS: BMI 19.8
[2018-08-08] VITALS (8 sets, daily range): BP systolic 159–186; BP diastolic 83–95; PULSE 64–104; RESP 15–20; TEMP 36.1–36.9; O2SAT 94–99; BMI 32.5; BMI 32.9
--- NOTE | 2018-08-08 20:21 | EKG12_ITS ---
Test Reason : CP Blood Pressure : / mmHG Vent. Rate : 100 BPM Atrial Rate : 100 BPM P-R Int : 160 ms QRS Dur : 090 ms QT Int : 352 ms P-R-T Axes : 074 053 069 degrees QTc Int : 454 ms Sinus rhythm with occasional Premature ventricular complexes and Premature atrial complexes Possible Inferior infarct , age undetermined Abnormal ECG Confirmed by NAOMIE PALOMO, PARVEZ ([id number]), graphics editor MARLENY SIMENTAL ([id number]) on 08/15/2018 4:07:06 PM Referred By: KEYANNA Confirmed By:PARVEZ AKBAR MD
--- NOTE | 2018-08-08 20:27 | RAD_ITS ---
STUDY: X-RAY CHEST REASON FOR EXAM: Male, 73 years old. Hypertension, chest pain TECHNIQUE: Single AP portable view of the chest. COMPARISON: Prior study of August 02, 2018 FINDINGS: permit technician leads are seen. The lungs are clear and expanded. There is mild left hemithoracic pleural thickening. Normal size heart. Normal mediastinum and melanie. Normal visualized pulmonary arteries. There are calcified plaques of the aortic arch. There are diffuse degenerative changes of the visualized thoracic spine. Normal visualized ribs, clavicles, and shoulders. There is no demonstrated abnormality of the visualized soft tissue structures of the upper abdomen. RAD/Chest 1 View (Portable) IMPRESSION: Calcific plaques of the aortic arch. Degenerative changes of the thoracic spine. Mild right hemithoracic pleural thickening. No acute cardiopulmonary disease process is seen. Chest findings are stable in the interval. Electronically Signed: Wei Vilchis MD at 20:56 EDT , Service support ,
[2018-08-08 20:30] LABS: Absolute Lymphocyte Count 1.76 X10^3/ul (0.83-4.51); Absolute Neutrophil Count 4.9 X10^3/uL (2.0-7.7); Basophil# 0.02 X10^3/uL; Basophil% 0.3 % (0-1); Eosinophil# 0.11 X10^3/uL; Eosinophils% 1.5 % (0-5); Hematocrit 45.1 % (40-54); Hemoglobin 14.7 g/dl (13.0-16.5); Lymphocyte # 1.76 X10^3/ul (4.0); Lymphocyte % 23.2 % (19-41); Mean Corp Hgb Conc 32.6 g/gl (32-36); Mean Platelet Vol. 12.1 fl (6.2-12.0); Monocyte# 0.78 X10^3/uL; Monocyte% 10.3 % (0-10); Neutrophil # 4.86 X10^3/uL (2.7-7.7); Neutrophil % 64.2 % (47-70); Platelet Count 129 K/mm3 (150-450); RBC Distribution Width CV 14.2 % (11.6-14.6); RBC Distribution Width SD 45.9 fl (35.1-43.9); Red Blood Count 5.07 M/mm3 (4.6-6.2); White Blood Count 7.6 K/mm3 (4.4-11.0)
[2018-08-08 20:31] LABS: POSITIVE COUNT NO; POSITIVE DIFFERENTIAL NO; POSITIVE MORPHOLOGY NO
[2018-08-08 20:45] LABS: Anion Gap 7 (5-15); BUN 16 mg/dL (7-18); BUN/Creat Ratio 12.4 RATIO (10-20); Calcium,Total 8.5 mg/dL (8.5-10.1); Chloride 108 mmol/L (98-107); Creatinine, Serum 1.29 mg/dL (0.70-1.30); EST Glomerular Filtration Rate 58 mL/min (>60); Est Glom Filt Rate - Afr Amer 70 mL/min (>60); Glucose 145 mg/dL (74-106); Potassium 3.7 mmol/L (3.5-5.1); Sodium Level 140 mmol/L (136-145)
--- NOTE | 2018-08-08 22:41 | ED.VIS.GEN ---
History of Present Illness Chief Complaint: Chest Pain Informant: Patient, Family Onset: Today - Episode this morning that lasted 1-2 hours and episode of pain this evening that lasted 1-2 hours Context: Sudden Onset Timing: Intermittent Quality: Sharp dull midsternal discomfort Location: Mid sternal Current Severity: Moderate Maximum Severity: Moderate Worsened by: Nothing Relieved by: Nothing, possible mild improvement with nitroglycerin sublingual Associated Symptoms: Dyspnea, diaphoresis this evening and nausea Narrative: Patient is an elderly man with known coronary disease who underwent cardiac catheterization with unsuccessful angioplasty and placement of stent circumflex vessel. There was 85% stenosis noted. There was DEXTER-3 flow noted. Procedure was performed by Dr. Alberto Olmstead. Patient states this is the same pain that resulted in admission and cardiac catheterization last week. Patient has minimal pain at time of interview. The time Dr. Araujo was contacted he was pain-free. - Past Medical History (1) CAD (coronary artery disease) Status: Chronic (2) CKD (chronic kidney disease) stage 3, GFR 30-59 ml/min Status: Chronic (3) COPD (chronic obstructive pulmonary disease) Status: Chronic (4) Hyperlipidemia Status: Chronic (5) Hypertension Status: Chronic (6) MATTHEW (obstructive sleep apnea) Status: Chronic (7) Obesity Status: Chronic (8) Old myocardial infarction Status: Chronic Past Medical History - Allergies and Home Meds Allergies/Adverse Reactions: Allergies No Known Allergies Allergy (Verified 08/08/18 19:58) Primary Care Physician: Victor M Luke DO [Primary Care Provider] - Prior records reviewed: Yes - Reviewed cardiac cath report by Dr. Olmstead Surgical History: angioplasty, herniorrhaphy, tonsillectomy, TURP, - - PCI ?6, tonsillectomy, cholecystectomy, TURP, hernia repair ?2, left shoulder surgery, neck cyst removal. Lives: Spouse/ Significant Other Smoking Status: Former smoker Alcohol: None Drugs: None - Family History Maternal Family History: Reports: - - Denies maternal cardiac history Paternal Family History: Reports: - - Father with a history of Parkinson's disease. Review of Systems General: Denies: Chills, Fever, Subjective, Sweats Eyes: Denies: Visual changes - bilaterally, Blurred Vision - bilaterally, Diplopia ENT: Denies: Bilateral ear pain, Rhinorrhea, Sore throat Cardiovascular: Reports: Chest pain Respiratory: Reports: Dyspnea, Dyspnea on exertion. Denies: Cough, Sputum, Orthopnea, Paroxysmal nocturnal dyspnea Gastrointestinal: Reports: Nausea. Denies: Abdominal pain, Vomiting, Diarrhea, Constipation, Melena, Hematochezia, -, - Genitourinary: Denies: Dysuria, Hematuria, Frequency Musculoskeletal: Denies: Myalgias, Arthralgias, Back pain, Extremity Pain Skin: Denies: Rash Neurological: Denies: Headache, Weakness Endocrine: Denies: Polyuria, Polydipsia Hematologic: Denies: Easy bruising, Easy bleeding Physical Exam Vital Signs/Narrative: Vital Signs Temp Pulse Resp BP Pulse Ox 08/08/18 21:42 98.5 F 78 20 H 176/95 H 96 08/08/18 21:40 78 15 176/95 H 97 08/08/18 20:29 97.0 F L 90 18 183/90 H 94 08/08/18 19:54 97 F L 104 H 16 175/89 H 97 Inital Vital Signs reviewed: Yes General: Well nourished, Well developed, No Acute Distress Head: Normocephalic, Atraumatic Eyes: Perrl, EOMI. Negative for: Pale conjunctiva, Scleral icterus ENT: Moist mucous membranes, No rhinorrhea, TM's clear Neck: Supple, Nontender, No lymphadenopathy, No JVD Cardiovascular: Regular rate, Regular rhythm, No murmurs, Normal S1, Normal S2 Respiratory: No distress, CTA bilaterally, Chest nontender Abdomen: Soft, Nontender, Nondistended, Normal bowel sounds, No masses Back: Nontender, Normal Inspection. Negative for: CVA tenderness Extremities: Nontender, No edema, - - Insert lower extremity DVT Skin: Normal color, No rash Neurological: Alert, Oriented x3, Cranial nerves II-XII grossly intact, Normal Strength, Normal Sensation Psychological: Normal affect, Normal Mood Diagnostic/Tx/Re-eval Chest X-Ray - ED: 1 View, Read by ED Physician, Unchanged, Normal, Heart, Bony Structures, No Acute Disease, Chronic Changes, - - Atherosclerosis of aortic arch. 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 Post Stenosis: 85 % Post intervention DEXTER flow: 3 Impressions Chest X-Ray 08/08/18 20:27 IMPRESSION: Calcific plaques of the aortic arch. Degenerative changes of the thoracic spine. Mild right hemithoracic pleural thickening. No acute cardiopulmonary disease process is seen. Chest findings are stable in the interval. Electronically Signed: Wei Vilchis MD at 20:56 EDT , Service support , 08/08/18 20:27 Chest 1 View (Portable) [RAD] Stat Laboratory Results 08/08/18 08/08/18 20:05 20:05 WBC 7.6 RBC 5.07 Hgb 14.7 Hct 45.1 MCV 89.0 MCH 29.0 MCHC 32.6 RDW 14.2 RDW Differential 45.9 H Plt Count 129 L MPV 12.1 H Immature Gran % (Auto) 0.500 Neut % (Auto) 64.2 Lymph % (Auto) 23.2 Wells % (Auto) 10.3 H Eos % (Auto) 1.5 Baso % (Auto) 0.3 Absolute Neuts (auto) 4.9 Absolute Lymphs (auto) 1.76 Total Counted Not Reportable Sodium 140 Potassium 3.7 Chloride 108 H Carbon Dioxide 25.0 Anion Gap 7 BUN 16 Creatinine 1.29 Estim Creat Clear Calc 51.00 Est GFR (MDRD) Af Amer 70 Est GFR (MDRD) Non-Af 58 L BUN/Creatinine Ratio 12.4 Glucose 145 H Calcium 8.5 Troponin I < 0.015 - Rhythm Strip Rhythm Strip: Sinus Rhythm Rate: 99 Ectopy: None - EKG Initial EKG Interpretation: Sinus Rhythm - Ventricular rate 100. MN interval, Q nondenominational QT interval and axis are normal. EKG is unchanged from prior. Prior: Unchanged - Medical Decision Making With known coronary disease and pain similar to his coronary disease will obtain EKG, chest x-ray and appropriate blood work to determine if he has had a non-ST elevation [place]. Catheter report was reviewed and reveals 85% stenosis of the mid circumflex vessel. Case was discussed Dr. Araujo. Plan is to place in PCU and determine what else can be done for this patient since Dr. Olmstead was not able to pass a wire across culprit lesion and perform angioplasty with stent placement. Patient took aspirin within the past 24 hours and reason he did not receive aspirin in the department. ED Disposition - Plan for ED Patient: Disposition: Acute Care Hospital [facility] Diagnosis: Unstable angina, Type 2 diabetes mellitus without complications, Old myocardial infarction, Hypertension, Hyperlipidemia Referrals: Victor M Luke DO [Primary Care Provider] -
--- NOTE | 2018-08-08 22:45 | ED.DCSUM_ITS ---
History of Present Illness Chief Complaint: Chest Pain Informant: Patient, Family Onset: Today - Episode this morning that lasted 1-2 hours and episode of pain this evening that lasted 1-2 hours Context: Sudden Onset Timing: Intermittent Quality: Sharp dull midsternal discomfort Location: Mid sternal Current Severity: Moderate Maximum Severity: Moderate Worsened by: Nothing Relieved by: Nothing, possible mild improvement with nitroglycerin sublingual Associated Symptoms: Dyspnea, diaphoresis this evening and nausea Narrative: Patient is an elderly man with known coronary disease who underwent cardiac catheterization with unsuccessful angioplasty and placement of stent circumflex vessel. There was 85% stenosis noted. There was DEXTER-3 flow noted. Procedure was performed by Dr. Alberto Olmstead. Patient states this is the same pain that r esulted in admission and cardiac catheterization last week. Patient has minimal pain at time of interview. The time Dr. Araujo was contacted he was pain-free. - Past Medical History (1) CAD (coronary artery disease) Status: Chronic (2) CKD (chronic kidney disease) stage 3, GFR 30-59 ml/min Status: Chronic (3) COPD (chronic obstructive pulmonary disease) Status: Chronic (4) Hyperlipidemia Status: Chronic (5) Hypertension Status: Chronic (6) MATTHEW (obstructive sleep apnea) Status: Chronic (7) Obesity Status: Chronic (8) Old myocardial infarction Status: Chronic Past Medical History - Allergies and Home Meds Allergies/Adverse Reactions: Allergies No Known Allergies Allergy (Verified 08/08/18 19:58) Primary Care Physician: Victor M Luke DO [Primary Care Provider] - Prior records reviewed: Yes - Reviewed cardiac cath report by Dr. Olmstead Surgical History: angioplasty, herniorrhaphy, tonsillectomy, TURP, - - PCI ?6, tonsillectomy, cholecystectomy, TURP, hernia repair ?2, left shoulder surgery, neck cyst removal. Lives: Spouse/ Significant Other Smoking Status: Former smoker Alcohol: None Drugs: None - Family History Maternal Family History: Reports: - - Denies maternal cardiac history Paternal Family History: Reports: - - Father with a history of Parkinson's disease. Review of Systems General: Denies: Chills, Fever, Subjective, Sweats Eyes: Denies: Visual changes - bilaterally, Blurred Vision - bilaterally, Diplopia ENT: Denies: Bilateral ear pain, Rhinorrhea, Sore throat Cardiovascular: Reports: Chest pain Respiratory: Reports: Dyspnea, Dyspnea on exertion. Denies: Cough, Sputum, Orthopnea, Paroxysmal nocturnal dyspnea Gastrointestinal: Reports: Nausea. Denies: Abdominal pain, Vomiting, Diarrhea, Constipation, Melena, Hematochezia, -, - Genitourinary: Denies: Dysuria, Hematuria, Frequency Musculoskeletal: Denies: Myalgias, Arthralgias, Back pain, Extremity Pain Skin: Denies: Rash Neurological: Denies: Headache, Weakness Endocrine: Denies: Polyuria, Polydipsia Hematologic: Denies: Easy bruising, Easy bleeding Physical Exam Vital Signs/Narrative: Vital Signs Temp Pulse Resp BP Pulse Ox 08/08/18 21:42 98.5 F 78 20 H 176/95 H 96 08/08/18 21:40 78 15 176/95 H 97 08/08/18 20:29 97.0 F L 90 18 183/90 H 94 08/08/18 19:54 97 F L 104 H 16 175/89 H 97 Inital Vital Signs reviewed: Yes General: Well nourished, Well developed, No Acute Distress Head: Normocephalic, Atraumatic Eyes: Perrl, EOMI. Negative for: Pale conjunctiva, Scleral icterus ENT: Moist mucous membranes, No rhinorrhea, TM's clear Neck: Supple, Nontender, No lymphadenopathy, No JVD Cardiovascular: Regular rate, Regular rhythm, No murmurs, Normal S1, Normal S2 Respiratory: No distress, CTA bilaterally, Chest nontender Abdomen: Soft, Nontender, Nondistended, Normal bowel sounds, No masses Back: Nontender, Normal Inspection. Negative for: CVA tenderness Extremities: Nontender, No edema, - - Insert lower extremity DVT Skin: Normal color, No rash Neurological: Alert, Oriented x3, Cranial nerves II-XII grossly intact, Normal Strength, Normal Sensation Psychological: Normal affect, Normal Mood Diagnostic/Tx/Re-eval Chest X-Ray - ED: 1 View, Read by ED Physician, Unchanged, Normal, Heart, Bony Structures, No Acute Disease, Chronic Changes, - - Atherosclerosis of aortic arch. 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 Post Stenosis: 85 % Post intervention DEXTER flow: 3 Impressions Chest X-Ray 08/08/18 20:27 IMPRESSION: Calcific plaques of the aortic arch. Degenerative changes of the thoracic spine. Mild right hemithoracic pleural thickening. No acute cardiopulmonary disease process is seen. Chest findings are stable in the interval. Electronically Signed: Wei Vilchis MD at 20:56 EDT , Service support , 08/08/18 20:27 Chest 1 View (Portable) [RAD] Stat Laboratory Results 08/08/18 08/08/18 20:05 20:05 WBC 7.6 RBC 5.07 Hgb 14.7 Hct 45.1 MCV 89.0 MCH 29.0 MCHC 32.6 RDW 14.2 RDW Differential 45.9 H Plt Count 129 L MPV 12.1 H Immature Gran % (Auto) 0.500 Neut % (Auto) 64.2 Lymph % (Auto) 23.2 [place] % (Auto) 10.3 H Eos % (Auto) 1.5 Baso % (Auto) 0.3 Absolute Neuts (auto) 4.9 Absolute Lymphs (auto) 1.76 Total Counted Not Reportable Sodium 140 Potassium 3.7 Chloride 108 H Carbon Dioxide 25.0 Anion Gap 7 BUN 16 Creatinine 1.29 Estim Creat Clear Calc 51.00 Est GFR (MDRD) Af Amer 70 Est GFR (MDRD) Non-Af 58 L BUN/Creatinine Ratio 12.4 Glucose 145 H Calcium 8.5 Troponin I < 0.015 - Rhythm Strip Rhythm Strip: Sinus Rhythm Rate: 99 Ectopy: None - EKG Initial EKG Interpretation: Sinus Rhythm - Ventricular rate 100. OH interval, Q mu-ism QT interval and axis are normal. EKG is unchanged from prior. Prior: Unchanged - Medical Decision Making With known coronary disease and pain similar to his coronary disease will obtain EKG, chest x-ray and appropriate blood work to determine if he has had a non-ST elevation AR. Catheter report was reviewed and reveals 85% stenosis of the mid circumflex vessel. Case was discussed Dr. Araujo. Plan is to place in PCU and determine what else can be done for this patient since Dr. Olmstead was not able to pass a wire across culprit lesion and perform angioplasty with stent placement. Patient took aspirin within the past 24 hours and reason he did not receive aspirin in the department. ED Disposition - Plan for ED Patient: Disposition: Acute [facility] Diagnosis: Unstable angina, Type 2 diabetes mellitus without complications, Old myocardial infarction, Hypertension, Hyperlipidemia Referrals: Victor M Luke DO [Primary Care Provider] -
--- NOTE | 2018-08-08 23:01 | PCM.HP.STD ---
Problem List (1) Unstable angina Status: Acute (2) Chest pain Status: Acute Qualifiers: (3) COPD (chronic obstructive pulmonary disease) Status: Chronic (4) 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.9) Status: Chronic (5) MATTHEW (obstructive sleep apnea) Status: Chronic (6) CKD (chronic kidney disease) stage 3, GFR 30-59 ml/min Status: Chronic (7) CAD (coronary artery disease) Status: Chronic Qualifiers: Coronary Disease-Associated Artery/Lesion type: [place] artery (8) Type 2 diabetes mellitus without complications Status: Chronic Qualifiers: (9) Hypertension Status: Chronic Qualifiers: (10) Hyperlipidemia Status: Chronic Qualifiers: History of Present Illness Date of Admission: 08/08/18 Chief Complaint: chest pain The patient is a 73 year old male patient with a history of coronary artery disease presents to the ER with chest pain. The pain is a tightness in the chest which has come and gone several times throughout the day and is associated with a cool clammy sensation. The pain is no radiating. 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 The intervention was unsuccessful and medical management was determined to be the course of treatment going forward. He has significant pain and doesn't want to continue to feel this way and he came in for further management. Dr Araujo (covering physician)was notified by Dr Canela in the ER and decision to keep patient here overnight for management was made and a further plan will be determined by lobster catcher in the AM. Currently the patient is chest pain free. Initial Troponin is negative. Past Medical History Past Medical History (Chronic Problems): Chronic Problems (Last Updated 08/03/18 @ 11:41 by Maria R Bautista) COPD (chronic obstructive pulmonary disease) (Chronic) 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.9) (Chronic) MATTHEW (obstructive sleep apnea) (Chronic) CKD (chronic kidney disease) stage 3, GFR 30-59 ml/min (Chronic) CAD (coronary artery disease) (Chronic) Atherosclerotic heart disease [place] coronary artery w/angina pectoris (Chronic) Normal LV size, wall motion,and systolic function Normal Left Ventricular systolic function Normal LV size, wall motion,and systolic function LVEF: by LV gram 65 % Normal Left Ventricular End Diastolic Pressure 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 Procedure aborted. No complications. 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 Procedure aborted. No complications. 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 Procedure aborted. No complications. 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 [Ecotrin] 81 mg PO DAILY@0800 01/21/17 Venlafaxine XR [Effexor Xr] 150 mg PO DAILY 11/30/17 Cyanocobalamin [Vitamin B12] 1,000 mcg PO DAILY@0800 04/12/18 Glimepiride [Amaryl] 1 mg PO DAILY 04/12/18 Magnesium Oxide [Mag-Ox 400] 800 mg PO DAILY 04/12/18 clopidogrel 75 mg tablet 75 mg PO DAILY #90 tab 06/09/18 furosemide 20 mg tablet 20 mg PO DAILY #90 tab 06/09/18 metoprolol tartrate 25 mg tablet 25 mg PO BID #180 tab 06/09/18 nitroglycerin 0.4 mg sublingual 0.4 mg SUBLINGUAL Q5-15M PRN #25 06/09/18 tablet tab pantoprazole 40 mg tablet,delayed 40 mg PO BID #180 tab 06/09/18 release potassium chloride ER 20 mEq 20 meq PO BID #180 tab 06/09/18 tablet,extended release(part/cryst) pravastatin 20 mg tablet 20 mg PO QHS #90 tab 06/09/18 spironolactone 50 mg tablet 50 mg PO DAILY #90 tab 06/09/18 Cholecalciferol (Vitamin D3) 2,000 unit PO DAILY 08/02/18 [Vitamin D3] isosorbide mononitrate ER 60 mg 60 mg PO BID #180 tab 08/03/18 tablet,extended release 24 hr Surgical History: Surgical History (Last Updated 08/03/18 @ 11:41 by Maria R Bautista) History of coronary artery stent placement (Chronic) Onset Date: 08/13/17 Z95.5 Attempted PCI 08/03/2018: 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 Procedure aborted. No complications. 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 Lives: Spouse/ Significant Other Smoking Status: Former smoker Alcohol: None Drugs: None - *Family History Maternal History Items: - - Denies maternal cardiac history Paternal History Items: - - Father with a history of Parkinson's disease. Review of Systems Constitutional: Denies: Chills, Fever, Weight Change HEENT: Denies: Head Aches, Sinus Congestion, Sinus Drainage Cardiovascular: Reports: Chest Pain, Chest Pressure, Chest Tightness. Denies: Palpitations Respiratory: Denies: Cough, Shortness of breath at rest, Sputum production Gastrointestinal: Denies: Abdominal Pain, Nausea, Vomiting Genitourinary: Denies: Dysuria Musculoskeletal: Denies: Joint Pain, Joint Tenderness Skin: Denies: Rash, Wounds Neurological: Denies: Numbness, Tingling, Focal weakness Psychiatric: Denies: Anxiety, Depression, Homicidal Ideations, Suicidal Ideations Hematologic/ Lymphatic: Denies: Easy Bruising, Easy Bleeding VTE Information - Inpt Only VTE Present on Admission: No VTE Mechan Device Prophylaxis: None VTE Pharm Prophylaxis ordered?: Yes Patient Problems: Active and Suspected Problems (Last Updated 08/03/18 @ 11:41 by Maria R Bautista) Unstable angina (Acute) - Physical Exam General: Alert, Oriented x3, Cooperative HEENT: Atraumatic, Normocephalic Neck: Supple Lungs: Clear to auscultation, Normal air movement, No rhonchi, No wheeze, No rales Cardiovascular: Regular rate, Regular Rhythm, Normal S1, Normal S2, No murmurs Abdomen: Bowel Sounds Present, Soft, Non Tender, Obese Extremities: No edema, Capillary Refill Less than 3 Seconds Skin: No rashes Musculoskeletal: No Tenderness to Palpation of Joints or Extremities Neurological: Neuro grossly intact Psych/Mental Status: Normal Affect, Appropriate Vital Signs Temp Pulse Resp BP Pulse Ox 98.5 F 76 18 172/83 H 96 08/08/18 21:42 08/08/18 22:46 08/08/18 22:46 08/08/18 22:46 08/08/18 22:46 Oxygen Delivery Method Room Air Weight: 220 lb Body Mass Index (BMI) 32.5 Finger Stick Blood Glucose 103 Laboratory Tests Past 24 Hrs 08/08/18 08/08/18 20:05 20:05 WBC 7.6 RBC 5.07 Hgb 14.7 Hct 45.1 MCV 89.0 MCH 29.0 MCHC 32.6 RDW 14.2 RDW Differential 45.9 H Plt Count 129 L MPV 12.1 H Immature Gran % (Auto) 0.500 Neut % (Auto) 64.2 Lymph % (Auto) 23.2 G[place]pie % (Auto) 10.3 H Eos % (Auto) 1.5 Baso % (Auto) 0.3 Absolute Neuts (auto) 4.9 Absolute Lymphs (auto) 1.76 Total Counted Not Reportable Sodium 140 Potassium 3.7 Chloride 108 H Carbon Dioxide 25.0 Anion Gap 7 BUN 16 Creatinine 1.29 Estim Creat Clear Calc 51.00 Est GFR (MDRD) Af Amer 70 Est GFR (MDRD) Non-Af 58 L BUN/Creatinine Ratio 12.4 Glucose 145 H Calcium 8.5 Troponin I < 0.015 Assessment/Plan All Active Problems (Last Updated 08/03/18 @ 11:41 by Maria R Bautista) Unstable angina (Acute) Chest pain (Acute) Chronic Problems (Last Updated 08/03/18 @ 11:41 by Maria R Bautista) COPD (chronic obstructive pulmonary disease) (Chronic) 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.9) (Chronic) MATTHEW (obstructive sleep apnea) (Chronic) CKD (chronic kidney disease) stage 3, GFR 30-59 ml/min (Chronic) CAD (coronary artery disease) (Chronic) Atherosclerotic heart disease [place] coronary artery w/angina pectoris (Chronic) Normal LV size, wall motion,and systolic function Normal Left Ventricular systolic function Normal LV size, wall motion,and systolic function LVEF: by LV gram 65 % Normal Left Ventricular End Diastolic Pressure 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 Procedure aborted. No complications. 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 Procedure aborted. No complications. 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 IV normal saline at 100cc/hour, CBC, CMP,FLP, PT INR in am 2. COPD-- maintain current aerosol management 3. Diabetes / Hypertension / hyperlipidemia--will hold PO medicine and monitor accordingly DVT prophylaxis--LMWH Code Visit Inpatient E&M: 51082 Init Hosp L3
--- NOTE | 2018-08-08 23:07 | HP.PCM_ITS ---
Problem List (1) Unstable angina Status: Acute (2) Chest pain Status: Acute Qualifiers: (3) COPD (chronic obstructive pulmonary disease) Status: Chronic (4) 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.9) Status: Chronic (5) MATTHEW (obstructive sleep apnea) Status: Chronic (6) CKD (chronic kidney disease) stage 3, GFR 30-59 ml/min Status: Chronic (7) CAD (coronary artery disease) Status: Chronic Qualifiers: Coronary Disease-Associated Artery/Lesion type: [place] artery (8) Type 2 diabetes mellitus without complications Status: Chronic Qualifiers: (9) Hypertension Status: Chronic Qualifiers: (10) Hyperlipidemia Status: Chronic Qualifiers: History of Present Illness Date of Admission: 08/08/18 Chief Complaint: chest pain The patient is a 73 year old male patient with a history of coronary artery disease presents to the ER with chest pain. The pain is a tightness in the chest which has come and gone several times throughout the day and is associated with a cool clammy sensation. The pain is no radiating. 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 The intervention was unsuccessful and me dical management was determined to be the course of treatment going forward. He has significant pain and doesn't want to continue to feel this way and he came in for further management. Dr Araujo (covering physician)was notified by Dr Canela in the ER and decision to keep patient here overnight for management was made and a further plan will be determined by rn recovery in the AM. Currently the patient is chest pain free. Initial Troponin is negative. Past Medical History Past Medical History (Chronic Problems): Chronic Problems (Last Updated 08/03/18 @ 11:41 by Maria R Bautista) COPD (chronic obstructive pulmonary disease) (Chronic) 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.9) (Chronic) MATTHEW (obstructive sleep apnea) (Chronic) CKD (chronic kidney disease) stage 3, GFR 30-59 ml/min (Chronic) CAD (coronary artery disease) (Chronic) Atherosclerotic heart disease [place] coronary artery w/angina pectoris (Chronic) Normal LV size, wall motion,and systolic function Normal Left Ventricular systolic function Normal LV size, wall motion,and systolic function LVEF: by LV gram 65 % Normal Left Ventricular End Diastolic Pressure 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 Procedure aborted. No complications. 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 Procedure aborted. No complications. 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 Procedure aborted. No complications. 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 [Ecotrin] 81 mg PO DAILY@0800 01/21/17 Venlafaxine XR [Effexor Xr] 150 mg PO DAILY 11/30/17 Cyanocobalamin [Vitamin B12] 1,000 mcg PO DAILY@0800 04/12/18 Glimepiride [Amaryl] 1 mg PO DAILY 04/12/18 Magnesium Oxide [Mag-Ox 400] 800 mg PO DAILY 04/12/18 clopidogrel 75 mg tablet 75 mg PO DAILY #90 tab 06/09/18 furosemide 20 mg tablet 20 mg PO DAILY #90 tab 06/09/18 metoprolol tartrate 25 mg tablet 25 mg PO BID #180 tab 06/09/18 nitroglycerin 0.4 mg sublingual 0.4 mg SUBLINGUAL Q5-15M PRN #25 06/09/18 tablet tab pantoprazole 40 mg tablet,delayed 40 mg PO BID #180 tab 06/09/18 release potassium chloride ER 20 mEq 20 meq PO BID #180 tab 06/09/18 tablet,extended release(part/cryst) pravastatin 20 mg tablet 20 mg PO QHS #90 tab 06/09/18 spironolactone 50 mg tablet 50 mg PO DAILY #90 tab 06/09/18 Cholecalciferol (Vitamin D3) 2,000 unit PO DAILY 08/02/18 [Vitamin D3] isosorbide mononitrate ER 60 mg 60 mg PO BID #180 tab 08/03/18 tablet,extended release 24 hr Surgical History: Surgical History (Last Updated 08/03/18 @ 11:41 by Maria R Bautista) History of coronary artery stent placement (Chronic) Onset Date: 08/13/17 Z95.5 Attempted PCI 08/03/2018: 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 Procedure aborted. No complications. 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 Lives: Spouse/ Significant Other Smoking Status: Former smoker Alcohol: None Drugs: None - *Family History Maternal History Items: - - Denies maternal cardiac history Paternal History Items: - - Father with a history of Parkinson's disease. Review of Systems Constitutional: Denies: Chills, Fever, Weight Change HEENT: Denies: Head Aches, Sinus Congestion, Sinus Drainage Cardiovascular: Reports: Chest Pain, Chest Pressure, Chest Tightness. Denies: Palpitations Respiratory: Denies: Cough, Shortness of breath at rest, Sputum production Gastrointestinal: Denies: Abdominal Pain, Nausea, Vomiting Genitourinary: Denies: Dysuria Musculoskeletal: Denies: Joint Pain, Joint Tenderness Skin: Denies: Rash, Wounds Neurological: Denies: Numbness, Tingling, Focal weakness Psychiatric: Denies: Anxiety, Depression, Homicidal Ideations, Suicidal Ideations Hematologic/ Lymphatic: Denies: Easy Bruising, Easy Bleeding VTE Information - Inpt Only VTE Present on Admission: No VTE Mechan Device Prophylaxis: None VTE Pharm Prophylaxis ordered?: Yes Patient Problems: Active and Suspected Problems (Last Updated 08/03/18 @ 11:41 by Maria R Bautista) Unstable angina (Acute) - Physical Exam General: Alert, Oriented x3, Cooperative HEENT: Atraumatic, Normocephalic Neck: Supple Lungs: Clear to auscultation, Normal air movement, No rhonchi, No wheeze, No rales Cardiovascular: Regular rate, Regular Rhythm, Normal S1, Normal S2, No murmurs Abdomen: Bowel Sounds Present, Soft, Non Tender, Obese Extremities: No edema, Capillary Refill Less than 3 Seconds Skin: No rashes Musculoskeletal: No Tenderness to Palpation of Joints or Extremities Neurological: Neuro grossly intact Psych/Mental Status: Normal Affect, Appropriate Vital Signs Temp Pulse Resp BP Pulse Ox 98.5 F 76 18 172/83 H 96 08/08/18 21:42 08/08/18 22:46 08/08/18 22:46 08/08/18 22:46 08/08/18 22:46 Oxygen Delivery Method Room Air Weight: 220 lb Body Mass Index (BMI) 32.5 Finger Stick Blood Glucose 103 Laboratory Tests Past 24 Hrs 08/08/18 08/08/18 20:05 20:05 WBC 7.6 RBC 5.07 Hgb 14.7 Hct 45.1 MCV 89.0 MCH 29.0 MCHC 32.6 RDW 14.2 RDW Differential 45.9 H Plt Count 129 L MPV 12.1 H Immature Gran % (Auto) 0.500 Neut % (Auto) 64.2 Lymph % (Auto) 23.2 [place] % (Auto) 10.3 H Eos % (Auto) 1.5 Baso % (Auto) 0.3 Absolute Neuts (auto) 4.9 Absolute Lymphs (auto) 1.76 Total Counted Not Reportable Sodium 140 Potassium 3.7 Chloride 108 H Carbon Dioxide 25.0 Anion Gap 7 BUN 16 Creatinine 1.29 Estim Creat Clear Calc 51.00 Est GFR (MDRD) Af Amer 70 Est GFR (MDRD) Non-Af 58 L BUN/Creatinine Ratio 12.4 Glucose 145 H Calcium 8.5 Troponin I < 0.015 Assessment/Plan All Active Problems (Last Updated 08/03/18 @ 11:41 by Maria R Bautista) Unstable angina (Acute) Chest pain (Acute) Chronic Problems (Last Updated 08/03/18 @ 11:41 by Maria R Bautista) COPD (chronic obstructive pulmonary disease) (Chronic) 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.9) (Chronic) MATTHEW (obstructive sleep apnea) (Chronic) CKD (chronic kidney disease) stage 3, GFR 30-59 ml/min (Chronic) CAD (coronary artery disease) (Chronic) Atherosclerotic heart disease [place] coronary artery w/angina pectoris (Chronic) Normal LV size, wall motion,and systolic function Normal Left Ventricular systolic function Normal LV size, wall motion,and systolic function LVEF: by LV gram 65 % Normal Left Ventricular End Diastolic Pressure 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 Procedure aborted. No complications. 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 Procedure aborted. No complications. 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 IV normal saline at 100cc/hour, CBC, CMP,FLP, PT INR in am 2. COPD-- maintain current aerosol management 3. Diabetes / Hypertension / hyperlipidemia--will hold PO medicine and monitor accordingly DVT prophylaxis--LMWH Code Visit Inpatient E&M: 74911 Init Hosp L3
[2018-08-09] VITALS (9 sets, daily range): BP systolic 137–166; BP diastolic 78–93; PULSE 65–96; RESP 16–18; TEMP 36.6–36.7; O2SAT 96–97
[2018-08-09] MEDS: 0.9% Normal Saline 1,000 ML 100 ML IV ×2 (00:19→11:10)
[2018-08-09] MEDS: Nitroglycerin Oint 1 INCH PACKET 0.5 INCH TRANSDERM. ×4 (00:21→17:27)
--- NOTE | 2018-08-09 00:22 | EKG12_ITS ---
Test Reason : CP ADMIT Blood Pressure : / mmHG Vent. Rate : 071 BPM Atrial Rate : 071 BPM P-R Int : 172 ms QRS Dur : 086 ms QT Int : 388 ms P-R-T Axes : 062 072 078 degrees QTc Int : 421 ms Normal sinus rhythm with sinus arrhythmia Inferior NE, age undetermined, cannot be excluded Confirmed by RACH PALOMO, MUKUL ([id number]), acquisitions editor VERONICA SCOTT ([id number]) on 08/10/2018 1:25:42 PM Referred By: DR BECERRA Confirmed By:MUKUL LOYD MD
[2018-08-09] MEDS: Zolpidem Tartrate 5 MG Tablet PO (00:27)
[2018-08-09] MEDS: 0.9% NaCl Peripheral Flush Adult/Peds IV (00:29)
[2018-08-09 03:22] LABS: Hematocrit 42.7 % (40-54); Hemoglobin 14.3 g/dl (13.0-16.5); Mean Corp Hgb Conc 33.5 g/gl (32-36); Mean Corpuscular Hgb 29.1 pg (27.0-32.0); Mean Corpuscular Volume 86.8 fL (80-94); Mean Platelet Vol. 11.5 fl (6.2-12.0); Platelet Count 106 K/mm3 (150-450); RBC Distribution Width CV 14.2 % (11.6-14.6); RBC Distribution Width SD 44.5 fl (35.1-43.9); Red Blood Count 4.92 M/mm3 (4.6-6.2); White Blood Count 6.5 K/mm3 (4.4-11.0)
[2018-08-09 03:26] LABS: Prothrombin Time (Protime)PT. 13.3 SECONDS (11.7-14.9)
[2018-08-09 04:01] LABS: Scan Indicated on CBC? Y/N NO
[2018-08-09 04:16] LABS: AST(SGOT) 16 U/L (15-37); Alanine Aminotransfer ALT/SGPT 31 U/L (16-61); Albumin, Serum 2.9 g/dL (3.2-5.0); Alkaline Phosphatase 102 U/L (45-117); Anion Gap 7 (5-15); BUN 14 mg/dL (7-18); BUN/Creat Ratio 12.1 RATIO (10-20); Calcium,Total 8.4 mg/dL (8.5-10.1); Chloride 111 mmol/L (98-107); Cholesterol 181 mg/dL (200); Creatinine, Serum 1.16 mg/dL (0.70-1.30); EST Glomerular Filtration Rate 66 mL/min (>60); Est Glom Filt Rate - Afr Amer 79 mL/min (>60); Estimated Creatinine Clearance 56.72 ml/min; Glucose 118 mg/dL (74-106); High Density Lipoprotein 47 mg/dL; Magnesium 1.9 mg/dL (1.6-2.6); Potassium 3.8 mmol/L (3.5-5.1); Protein, Total 5.9 g/dL (6.4-8.2); Sodium Level 142 mmol/L (136-145); Triglycerides 194 mg/dL; Very Low Density Lipoprotein 39 mg/dL (5-40)
[2018-08-09] MEDS: Enoxaparin 40 MG/0.4 ML Syringe SC (12:07)
--- NOTE | 2018-08-09 15:55 | PCM.PN.HOSP ---
Patient Problems: Active and Suspected Problems (Last Updated 08/03/18 @ 11:41 by Maria R Bautista) Unstable angina (Acute) Subjective: Patient seen and examined. He was admitted with a complaint of chest pain. He had recently been seen one week ago with similar chest pain and was found to have unstable angina, and had a cardiac cath on 08/04/18 which showed in-stent stenosis of hte stent in his circumflex artery as well as proximal artery having up to 50% stenosis. He had unsuccessful PCI, and plan was to refer him to [facility] on outpatient basis. Patient says chest pain had resolved at time of review. Review of systems was otherwise negative. Labs and vitals reviewed. Vitals/I&O's: Vital Signs Temp Pulse Resp BP Pulse Ox 98.1 F 66 18 137/78 H 97 08/09/18 11:20 08/09/18 11:20 08/09/18 11:20 08/09/18 11:20 08/09/18 11:20 Oxygen Delivery Method Room Air Weight: 222 lb 14.197 oz Body Mass Index (BMI) 32.9 Finger Stick Blood Glucose 103 Intake and Output for Last 24 Hours 08/07/18 08/08/18 08/09/18 23:59 23:59 23:59 Intake Total 1442 / 1442 Output Total 825 / 825 Balance 617 / 617 General: Alert, Oriented x3, Cooperative, No apparent distress HEENT: Atraumatic, PERRLA, EOMI, Normocephalic Oral: Moist Mucosa Neck: Supple, No JVD, Negative Carotid Bruits Lungs: Clear to auscultation, Normal air movement, No rhonchi, No wheeze, No rales Cardiovascular: Regular rate, Regular Rhythm, Normal S1, Normal S2, No murmurs Abdomen: Bowel Sounds Present, Soft, Non Tender, Non-Distended, No Hepato-splenomegaly Extremities: No clubbing, No cyanosis, No edema, Capillary Refill Less than 3 Seconds Skin: No rashes, No breakdown Musculoskeletal: No Tenderness to Palpation of Joints or Extremities Lymphatic: No Cervical, Supraclavicular, or Inguinal Adenopathy Neurological: Cranial nerves II-XII grossly intact, Neuro grossly intact, Motor Exam 5/5 strength throughout Psych/Mental Status: Normal Affect, Appropriate, Alert and oriented to time, place, person, mood and affect Laboratory Results 08/08/18 20:05: WBC 7.6, RBC 5.07, Hgb 14.7, Hct 45.1, MCV 89.0, MCH 29.0, MCHC 32.6, RDW 14.2, RDW Differential 45.9 H, Plt Count 129 L, MPV 12.1 H, Immature Gran % (Auto) 0.500, Neut % (Auto) 64.2, Lymph % (Auto) 23.2, [place] % (Auto) 10.3 H, Eos % (Auto) 1.5, Baso % (Auto) 0.3, Absolute Neuts (auto) 4.9, Absolute Lymphs (auto) 1.76, Total Counted Not Reportable 08/08/18 20:05: Sodium 140, Potassium 3.7, Chloride 108 H, Carbon Dioxide 25.0, Anion Gap 7, BUN 16, Creatinine 1.29, Estim Creat Clear Calc 51.00, Est GFR (MDRD) Af Amer 70, Est GFR (MDRD) Non-Af 58 L, BUN/Creatinine Ratio 12.4, Glucose 145 H, Calcium 8.5, Troponin I < 0.015 08/09/18 00:09: Troponin I < 0.015 08/09/18 03:01: WBC 6.5, RBC 4.92, Hgb 14.3, Hct 42.7, MCV 86.8, MCH 29.1, MCHC 33.5, RDW 14.2, RDW Differential 44.5 H, Plt Count 106 L, MPV 11.5 08/09/18 03:01: Sodium 142, Potassium 3.8, Chloride 111 H, Carbon Dioxide 24.0, Anion Gap 7, BUN 14, Creatinine 1.16, Estim Creat Clear Calc 56.72, Est GFR (MDRD) Af Amer 79, Est GFR (MDRD) Non-Af 66, BUN/Creatinine Ratio 12.1, Glucose 118 H, Calcium 8.4 L, Magnesium 1.9, Total Bilirubin 0.70, AST 16, ALT 31, Alkaline Phosphatase 102, Total Protein 5.9 L, Albumin 2.9 L, Globulin 3.0, Albumin/Globulin Ratio 1.0, Triglycerides 194, Cholesterol 181, LDL Cholesterol 95, VLDL Cholesterol 39, HDL Cholesterol 47 08/09/18 03:01: PT 13.3, INR 1.0 08/09/18 03:01: Troponin I < 0.015 Diagnostic Data Chest X-Ray 08/08/18 20:27 IMPRESSION: Calcific plaques of the aortic arch. Degenerative changes of the thoracic spine. Mild right hemithoracic pleural thickening. No acute cardiopulmonary disease process is seen. Chest findings are stable in the interval. Electronically Signed: Wei Vilchis MD at 20:56 EDT , Service support , Current Medications Aspirin (Ecotrin) 81 mg PO DAILY@0800 [facility] Clopidogrel Bisulfate (Plavix) 75 mg PO DAILY [facility] Enoxaparin Sodium (Lovenox) 40 mg SC DAILY@1000 [facility] Last Admin: 08/09/18 12:07 Dose: 40 mg Furosemide (Lasix) 20 mg PO DAILY [facility] Glimepiride (Amaryl) 1 mg PO DAILYCM [facility] Hydralazine HCl (Apresoline Iv) 10 mg IV Q6H PRN PRN PRN Reason: Hypertensive Emergency Sodium Chloride () 1,000 mls @ 100 mls/hr IV .Q10H [facility] Last Admin: 08/09/18 11:10 Dose: 100 mls/hr Isosorbide Mononitrate (Imdur) 60 mg PO BID [facility] Magnesium Hydroxide (Milk Of Magnesia) 30 ml PO DAILY PRN PRN Reason: Constipation Magnesium [facility]ide (Mag-Ox 400) [facility] Metoprolol Tartrate (Lopressor (Beta Kale)) 25 mg PO BID [facility] Morphine Sulfate () 2 mg IV Q2H PRN PRN PRN Reason: SEVERE PAIN (6-10/10) Nitroglycerin (Nitrobid) 0.5 inch TRANSDERM. Q6 [facility] Last Admin: 08/09/18 12:06 Dose: 0.5 inch Nitroglycerin (Nitrostat) 0.4 mg SUBLINGUAL Q5M PRN PRN Reason: CHEST PAIN Pantoprazole Sodium (Protonix) 40 mg PO BID [facility] Potassium Chloride (K-Dur) 20 meq PO BIDCM [facility] Pravastatin Sodium (Pravachol) 20 mg PO QHS [facility] Sodium Chloride () 5 - 15 ml IV UD PRN PRN Reason: SALINE FLUSH Last Admin: 08/09/18 00:29 Dose: 10 ml Spironolactone (Aldactone) 50 mg PO DAILY [facility] Venlafaxine HCl (Effexor Xr) 150 mg PO DAILY [facility] Zolpidem Tartrate (Ambien (Generic)) 5 mg PO QHS PRN PRN PRN Reason: INSOMNIA Last Admin: 08/09/18 00:27 Dose: 5 mg Medical Necessity - Tobacco Use Smoking Status: Former smoker Assessment/Plan All Active Problems (Last Updated 08/03/18 @ 11:41 by Maria R Bautista) Unstable angina (Acute) Chest pain (Acute) 1. Unstable angina presented again with chest pain. troponins negative. cath (08/19) showed proximal circumflex had moderate luminal irregularities up to 50% with in-stent restenosis of 85%. 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 2. Diabetes mellitus; on ISS, accuchecks ACHS. On glimepiride also 3. Hypertension: on spironolactone, metoprolol 4. Thrombocytopenia; stable. 5. Depression: on Effexor DVT prophylaxis: on lovenox Disposition: awaiting transfer to [facility]iology service, where he has been accepted to the service of Pa Thomas MD. Code Visit OBSV E&M: 16243 Subsequent observation care L2
--- NOTE | 2018-08-09 16:03 | PN_ITS ---
Patient Problems: Active and Suspected Problems (Last Updated 08/03/18 @ 11:41 by Maria R Bautista) Unstable angina (Acute) Subjective: Patient seen and examined. He was admitted with a complaint of chest pain. He had recently been seen one week ago with similar chest pain and was found to have unstable angina, and had a cardiac cath on 08/04/18 which showed in-stent stenosis of hte stent in his circumflex artery as well as proximal artery having up to 50% stenosis. He had unsuccessful PCI, and plan was to refer him to [facility] on outpatient basis. Patient says chest pain had resolved at time of review. Review of systems was otherwise negative. Labs and vitals reviewed. Vitals/I&O's: Vital Signs Temp Pulse Resp BP Pulse Ox 98.1 F 66 18 137/78 H 97 08/09/18 11:20 08/09/18 11:20 08/09/18 11:20 08/09/18 11:20 08/09/18 11:20 Oxygen Delivery Method Room Air Weight: 222 lb 14.197 oz Body Mass Index (BMI) 32.9 Finger Stick Blood Glucose 103 Intake and Output for Last 24 Hours 08/07/18 08/08/18 08/09/18 23:59 23:59 23:59 Intake Total 1442 / 1442 Output Total 825 / 825 Balance 617 / 617 General: Alert, Oriented x3, Cooperative, No apparent distress HEENT: Atraumatic, PERRLA, EOMI, Normocephalic Oral: Moist Mucosa Neck: Supple, No JVD, Negative Carotid Bruits Lungs: Clear to auscultation, Normal air movement, No rhonchi, No wheeze, No rales Cardiovascular: Regular rate, Regular Rhythm, Normal S1, Normal S2, No murmurs Abdomen: Bowel Sounds Present, Soft, Non Tender, Non-Distended, No Hepato- splenomegaly Extremities: No clubbing, No cyanosis, No edema, Capillary Refill Less than 3 Seconds Skin: No rashes, No breakdown Musculoskeletal: No Tenderness to Palpation of Joints or Extremities Lymphatic: No Cervical, Supraclavicular, or Inguinal Adenopathy Neurological: Cranial nerves II-XII grossly intact, Neuro grossly intact, Motor Exam 5/5 strength throughout Psych/Mental Status: Normal Affect, Appropriate, Alert and oriented to time, place, person, mood and affect Laboratory Results 08/08/18 20:05: WBC 7.6, RBC 5.07, Hgb 14.7, Hct 45.1, MCV 89.0, MCH 29.0, MCHC 32.6, RDW 14.2, RDW Differential 45.9 H, Plt Count 129 L, MPV 12.1 H, Immature Gran % (Auto) 0.500, Neut % (Auto) 64.2, Lymph % (Auto) 23.2, [place] % (Auto) 10.3 H, Eos % (Auto) 1.5, Baso % (Auto) 0.3, Absolute Neuts (auto) 4.9, Absolute Lymphs (auto) 1.76, Total Counted Not Reportable 08/08/18 20:05: Sodium 140, Potassium 3.7, Chloride 108 H, Carbon Dioxide 25.0, Anion Gap 7, BUN 16, Creatinine 1.29, Estim Creat Clear Calc 51.00, Est GFR (MDRD) Af Amer 70, Est GFR (MDRD) Non-Af 58 L, BUN/Creatinine Ratio 12.4, Glucose 145 H, Calcium 8.5, Troponin I < 0.015 08/09/18 00:09: Troponin I < 0.015 08/09/18 03:01: WBC 6.5, RBC 4.92, Hgb 14.3, Hct 42.7, MCV 86.8, MCH 29.1, MCHC 33.5, RDW 14.2, RDW Differential 44.5 H, Plt Count 106 L, MPV 11.5 08/09/18 03:01: Sodium 142, Potassium 3.8, Chloride 111 H, Carbon Dioxide 24.0, Anion Gap 7, BUN 14, Creatinine 1.16, Estim Creat Clear Calc 56.72, Est GFR (MDRD) Af Amer 79, Est GFR (MDRD) Non-Af 66, BUN/Creatinine Ratio 12.1, Glucose 118 H, Calcium 8.4 L, Magnesium 1.9, Total Bilirubin 0.70, AST 16, ALT 31, Alkaline Phosphatase 102, Total Protein 5.9 L, Albumin 2.9 L, Globulin 3.0, Albumin/Globulin Ratio 1.0, Triglycerides 194, Cholesterol 181, LDL Cholesterol 95, VLDL Cholesterol 39, HDL Cholesterol 47 08/09/18 03:01: PT 13.3, INR 1.0 08/09/18 03:01: Troponin I < 0.015 Diagnostic Data Chest X-Ray 08/08/18 20:27 IMPRESSION: Calcific plaques of the aortic arch. Degenerative changes of the thoracic spine. Mild right hemithoracic pleural thickening. No acute cardiopulmonary disease process is seen. Chest findings are stable in the interval. Electronically Signed: Wei Vilchis MD at 20:56 EDT , Service support , Current Medications Aspirin (Ecotrin) 81 mg PO DAILY@0800 [facility] Clopidogrel Bisulfate (Plavix) 75 mg PO DAILY [facility] Enoxaparin Sodium (Lovenox) 40 mg SC DAILY@1000 [facility] Last Admin: 08/09/18 12:07 Dose: 40 mg Furosemide (Lasix) 20 mg PO DAILY [facility] Glimepiride (Amaryl) 1 mg PO DAILYCM [facility] Hydralazine HCl (Apresoline Iv) 10 mg IV Q6H PRN PRN PRN Reason: Hypertensive Emergency Sodium Chloride () 1,000 mls @ 100 mls/hr IV .Q10H [facility] Last Admin: 08/09/18 11:10 Dose: 100 mls/hr Isosorbide Mononitrate (Imdur) 60 mg PO BID [facility] Magnesium Hydroxide (Milk Of Magnesia) 30 ml PO DAILY PRN PRN Reason: Constipation [facility] ([facility]Ox 400) [facility] Metoprolol Tartrate (Lopressor (Beta Kale)) 25 mg PO BID [facility] Morphine Sulfate () 2 mg IV Q2H PRN PRN PRN Reason: SEVERE PAIN (6-10/10) Nitroglycerin (Nitrobid) 0.5 inch TRANSDERM. Q6 [facility] Last Admin: 08/09/18 12:06 Dose: 0.5 inch Nitroglycerin (Nitrostat) 0.4 mg SUBLINGUAL Q5M PRN PRN Reason: CHEST PAIN Pantoprazole Sodium (Protonix) 40 mg PO BID [facility] Potassium Chloride (K-Dur) 20 meq PO BIDCM [facility] Pravastatin Sodium (Pravachol) 20 mg PO QHS [facility] Sodium Chloride () 5 - 15 ml IV UD PRN PRN Reason: SALINE FLUSH Last Admin: 08/09/18 00:29 Dose: 10 ml Spironolactone (Aldactone) 50 mg PO DAILY [facility] Venlafaxine HCl (Effexor Xr) 150 mg PO DAILY [facility] Zolpidem Tartrate (Ambien (Generic)) 5 mg PO QHS PRN PRN PRN Reason: INSOMNIA Last Admin: 08/09/18 00:27 Dose: 5 mg Medical Necessity - Tobacco Use Smoking Status: Former smoker Assessment/Plan All Active Problems (Last Updated 08/03/18 @ 11:41 by Maria R Bautista) Unstable angina (Acute) Chest pain (Acute) 1. Unstable angina * presented again with chest pain. troponins negative. * cath (08/19) showed proximal circumflex had moderate luminal irregularities up to 50% with in-stent restenosis of 85%. 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 today * on aspirin and plavix * on statin and metoprolol as well as imdur. 2. Diabetes mellitus; on ISS, accuchecks ACHS. On glimepiride also 3. Hypertension: on spironolactone, metoprolol 4. Thrombocytopenia; stable. 5. Depression: on Effexor DVT prophylaxis: on lovenox Disposition: awaiting transfer to [facility] Cardiology service, where he has been accepted to the service of Pa Thomas MD. Code Visit OBSV E&M: 71505 Subsequent observation care L2
--- NOTE | 2018-08-09 18:45 | NURSING ---
verbal report given to ALEX Levin at [facility]
--- NOTE | 2018-08-10 07:06 | PCM.DC.SUM ---
Discharge Date and Diagnosis Date of Admission: 08/08/18 Date of Discharge: 08/10/18 - Primary Discharge Diagnosis unstable angina - Secondary Discharge Diagnosis Chronic Problems (Last Updated 08/03/18 @ 11:41 by Maria R Bautista) COPD (chronic obstructive pulmonary disease) (Chronic) 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.9) (Chronic) MATTHEW (obstructive sleep apnea) (Chronic) CKD (chronic kidney disease) stage 3, GFR 30-59 ml/min (Chronic) CAD (coronary artery disease) (Chronic) Atherosclerotic heart disease [place] coronary artery w/angina pectoris (Chronic) Normal LV size, wall motion,and systolic function Normal Left Ventricular systolic function Normal LV size, wall motion,and systolic function LVEF: by LV gram 65 % Normal Left Ventricular End Diastolic Pressure 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 Procedure aborted. No complications. 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 Procedure aborted. No complications. 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 Degenerative changes of the thoracic spine. Mild right hemithoracic pleural thickening. No acute cardiopulmonary disease process is seen. Chest findings are stable in the interval. Electronically Signed: Wei Vilchis MD at 20:56 EDT , Service support , cardiology Operations: None Procedures: None Summary of Care Provided: The patient is a 73 year old M with an extensive PMH as listed. He was admitted with a complaint of chest pain. He had recently been seen one week ago with similar chest pain and was found to have unstable angina, and had a cardiac cath on 08/04/18 which showed in-stent stenosis of hte stent in his circumflex artery as well as proximal artery having up to 50% stenosis. He had unsuccessful PCI, and plan was to refer him to [facility] on outpatient basis. However, pain recurred and so patient decided coming to the ED as he did not like how he was feeling. Troponins x3 were negative and EKG showed no acute ST changes. Cardiology was consulted and decision was made to transfer patient to [facility] cardiology service for further management as patient will keep having recurrent chest pain. [facility] transfer service was contacted and patient was accepted to cardiology service under the service of Dr. Pa Thomas- cardiology. He was answered to [facility] on 08/09/2018. Patient was seen and examined prior to discharge. He had no complaints and felt well. Chest pain had not recurred since admission. Review of systems otherwise negative. Labs and vitals reviewed. Home medication reviewed and reconciled. o/e: Vital Signs Height 5 ft 9 in Weight: 222 lb 14.197 oz Weight in Pounds 222.9 lbs BMI 19.8 Pulse Ox 96 Temperature 98.0 F Pulse Rate 88 Respiratory Rate 16 Blood Pressure 166/93 Blood Pressure Position Semi-Fowlers [] General: Alert, Oriented x3, Cooperative, No apparent distress HEENT: Atraumatic, PERRLA, EOMI, Normocephalic Oral: Moist Mucosa Neck: Supple, No JVD, Negative Carotid Bruits Lungs: Clear to auscultation, Normal air movement, No rhonchi, No wheeze, No rales Cardiovascular: Regular rate, Regular Rhythm, Normal S1, Normal S2, No murmurs Abdomen: Bowel Sounds Present, Soft, Non Tender, Non-Distended, No Hepato-splenomegaly Extremities: No clubbing, No cyanosis, No edema, Capillary Refill Less than 3 Seconds Skin: No rashes, No breakdown Musculoskeletal: No Tenderness to Palpation of Joints or Extremities Lymphatic: No Cervical, Supraclavicular, or Inguinal Adenopathy Neurological: Cranial nerves II-XII grossly intact, Neuro grossly intact, Motor Exam 5/5 strength throughout Psych/Mental Status: Normal Affect, Appropriate, Alert and oriented to time, place, person, mood and affect Plan as above. 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 - Physical Exam Vital Signs Temp Pulse Resp BP Pulse Ox 98.0 F 88 16 166/93 H 96 08/09/18 17:31 08/09/18 17:43 08/09/18 17:31 08/09/18 17:31 08/09/18 17:31 Oxygen Delivery Method Room Air Weight: 222 lb 14.197 oz Body Mass Index (BMI) 32.9 Finger Stick Blood Glucose 103 Intake and Output for Last 24 Hours 08/08/18 08/09/18 08/10/18 23:59 23:59 23:59 Intake Total 2282 / 2282 Output Total 1275 / 1275 Balance 1007 / 1007 Discharge Diet: Low fat/ Low Cholesterol Discharge Activity: Return to Normal Activity Weight Bearing Status: Weight bearing as tolerated Home Medications: Medications to take at Discharge Aspirin E.C. [Ecotrin] 81 mg PO DAILY@0800 01/21/17 Venlafaxine XR [Effexor Xr] 150 mg PO DAILY 11/30/17 Cyanocobalamin [Vitamin B12] 1,000 mcg PO DAILY@0800 04/12/18 Glimepiride [Amaryl] 1 mg PO DAILY 04/12/18 Magnesium Oxide [Mag-Ox 400] 800 mg PO DAILY 04/12/18 clopidogrel 75 mg tablet 75 mg PO DAILY #90 tab 06/09/18 furosemide 20 mg tablet 20 mg PO DAILY #90 tab 06/09/18 metoprolol tartrate 25 mg tablet 25 mg PO BID #180 tab 06/09/18 nitroglycerin 0.4 mg sublingual tablet 0.4 mg SUBLINGUAL Q5-15M PRN #25 tab 06/09/18 pantoprazole 40 mg tablet,delayed release 40 mg PO BID #180 tab 02/07/19 potassium chloride ER 20 mEq tablet,extended release(part/cryst) 20 meq PO BID #180 tab 06/09/18 pravastatin 20 mg tablet 20 mg PO QHS #90 tab 06/09/18 spironolactone 50 mg tablet 50 mg PO DAILY #90 tab 06/09/18 Cholecalciferol (Vitamin D3) [Vitamin D3] 2,000 unit PO DAILY 08/02/18 isosorbide mononitrate ER 60 mg tablet,extended release 24 hr 60 mg PO BID #180 tab 08/03/18 Primary Care Physician: Victor M Luke DO [Primary Care Provider] - Please follow up with your Primary Care Physician in: one week Please Follow Up With: Elías Olmstead MD When: 1 week Disposition: Acute care Hospital - [facility] Minutes spent on discharge:: 45 Patient Condition:: Stable Medical Necessity - Tobacco Use Smoking Status: Former smoker Meaningful Use Info Meaningful Use Diagnoses (Choose all that apply): None applicable Code Visit Inpatient E&M: 64177 Disch Hosp
== END 2018-08-09 19:55 | disposition short-term general hospital (02) ==
LOC: ED 22:48 → PCU 23:10
PROVIDERS: Admitting Provider Family Medicine; Emergency Provider Emergency Medicine; Family Provider Family Medicine; PCP Family Medicine; Visit Provider Student in an Organized Health Care Education/Training Program
DX: I25.110 Atherosclerotic heart disease of native coronary artery with unstable angina pectoris (principal); E78.5 Hyperlipidemia, unspecified; E11.22 Type 2 diabetes mellitus with diabetic chronic kidney disease; J44.9 Chronic obstructive pulmonary disease, unspecified; I12.9 Hypertensive chronic kidney disease with stage 1 through stage 4 chronic kidney disease, or unspecified chronic kidney disease; N18.3 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, stage 3 (moderate); G47.33 Obstructive sleep apnea (adult) (pediatric); I25.2 Old myocardial infarction; E66.9 Obesity, unspecified; Z68.32 Body mass index [BMI] 32.0-32.9, adult; Z71.3 Dietary counseling and surveillance; Z87.891 Personal history of nicotine dependence
CPT/HCPCS: 36415; 71045; 80048; 80053; 80061; 83735; 84484; 85025; 85027; 85610; 93005; 96360; 96361; 96372; 99218; 99285; J7030; A4216; G0378

== ENCOUNTER → 2018-09-09 11:53 | Outpatient (CLI) | payer MEDICARE, OTHER, SELFPAY ==
[2018-08-03 13:04] VITALS: BMI 19.8
[2018-09-08 11:16] VITALS: BMI 34.0
[2018-09-09 15:57] LABS: Anion Gap 8 (5-15); BUN 27 mg/dL (7-18); BUN/Creat Ratio 20.5 RATIO (10-20); Calcium,Total 8.6 mg/dL (8.5-10.1); Chloride 109 mmol/L (98-107); Creatinine, Serum 1.32 mg/dL (0.70-1.30); EST Glomerular Filtration Rate 57 mL/min (>60); Est Glom Filt Rate - Afr Amer 68 mL/min (>60); Glucose 164 mg/dL (74-106); Potassium 4.3 mmol/L (3.5-5.1); Sodium Level 141 mmol/L (136-145)
== END ==
PROVIDERS: Family Provider Family Medicine; PCP Family Medicine; Visit Provider Family Medicine
DX: N18.3 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, stage 3 (moderate) (principal); Z51.81 Encounter for therapeutic drug level monitoring
CPT/HCPCS: 36415; 80048

== ENCOUNTER → 2018-10-28 14:05 | Outpatient (CLI) | payer MEDICARE, OTHER, SELFPAY ==
[2018-08-03 13:04] VITALS: BMI 19.8
[2018-10-28 13:39] VITALS: BMI 33.6
[2018-10-28 14:44] LABS: Hematocrit 44.7 % (40-54); Hemoglobin 14.9 g/dl (13.0-16.5); Mean Corp Hgb Conc 33.3 g/gl (32-36); Mean Corpuscular Hgb 29.9 pg (27.0-32.0); Mean Corpuscular Volume 89.6 fL (80-94); Mean Platelet Vol. 12.3 fl (6.2-12.0); Platelet Count 155 K/mm3 (150-450); RBC Distribution Width CV 13.8 % (11.6-14.6); RBC Distribution Width SD 45.3 fl (35.1-43.9); Red Blood Count 4.99 M/mm3 (4.6-6.2); White Blood Count 8.9 K/mm3 (4.4-11.0)
[2018-10-28 14:45] LABS: Scan Indicated on CBC? Y/N NO
[2018-10-28 15:14] LABS: Anion Gap 9 (5-15); BUN 12 mg/dL (7-18); BUN/Creat Ratio 9.4 RATIO (10-20); Chloride 103 mmol/L (98-107); Creatinine, Serum 1.28 mg/dL (0.70-1.30); EST Glomerular Filtration Rate 59 mL/min (>60); Est Glom Filt Rate - Afr Amer 71 mL/min (>60); Glucose 133 mg/dL (74-106); Sodium Level 143 mmol/L (136-145)
[2018-10-28 15:34] LABS: BNP,B-Type NATRIURETIC PEPTIDE 29.4 pg/mL (0-100)
== END ==
PROVIDERS: Family Provider Family Medicine; PCP Family Medicine; Referring Provider Physician Assistant Medical; Visit Provider Physician Assistant Medical
DX: I25.119 Atherosclerotic heart disease of native coronary artery with unspecified angina pectoris (principal); I10 Essential (primary) hypertension; Z98.61 Coronary angioplasty status; Z95.5 Presence of coronary angioplasty implant and graft
CPT/HCPCS: 36415; 80048; 83880; 85027

== ENCOUNTER → 2018-11-10 11:55 | Outpatient (CLI) | payer MEDICARE, OTHER, SELFPAY ==
[2018-08-03 13:04] VITALS: BMI 19.8
[2018-11-04 11:07] VITALS: BMI 34.4
[2018-11-10 13:04] LABS: Anion Gap 4 (5-15); BUN 19 mg/dL (7-18); BUN/Creat Ratio 13.4 RATIO (10-20); Calcium,Total 8.2 mg/dL (8.5-10.1); Chloride 103 mmol/L (98-107); Creatinine, Serum 1.42 mg/dL (0.70-1.30); EST Glomerular Filtration Rate 52 mL/min (>60); Est Glom Filt Rate - Afr Amer 63 mL/min (>60); Glucose 287 mg/dL (74-106); Potassium 4.1 mmol/L (3.5-5.1); Sodium Level 135 mmol/L (136-145)
== END ==
PROVIDERS: Family Provider Family Medicine; PCP Family Medicine; Visit Provider Family Medicine
DX: R60.9 Edema, unspecified (principal)
CPT/HCPCS: 36415; 80048

== ENCOUNTER 2018-11-22 10:03 | Outpatient (RCR) | payer MEDICARE, OTHER, SELFPAY ==
[2018-08-03 13:04] VITALS: BMI 19.8
[2018-11-04 11:07] VITALS: BMI 34.4
== END 2018-11-30 23:59 ==
LOC: WC 10:03
PROVIDERS: Family Provider Family Medicine; PCP Family Medicine; Visit Provider Surgery
DX: Z09 Encounter for follow-up examination after completed treatment for conditions other than malignant neoplasm (principal)

== ENCOUNTER → 2018-12-07 | Outpatient (CLI) | payer MEDICARE, OTHER, SELFPAY ==
[2018-08-03 13:04] VITALS: BMI 19.8
[2018-11-04 11:07] VITALS: BMI 34.4
--- NOTE | 2018-12-07 10:52 | ART_ITS ---
Reason For Study: PAD Procedure A bilateral lower extremity continuous wave Doppler with analog waveform analysis,segmental pressures,and ankle brachial indexes without exercise. Left Segmental Pressures Left brachial= 138mmHg. Left posterior tibial artery = 181mmHg. Left dorsalis pedis artery = 178mmHg. Left digit = 166 mmHg. The left posterior tibial artery waveforms are triphasic. The left dorsalis pedis waveforms are monophasic. Right Segmental Pressures Right brachial= 137mmHg. Right posterior tibial artery = 193mmHg. Right dorsalis pedis artery = 170mmHg. Right digit = 136 mmHg. The right posterior tibial artery waveforms are biphasic. The right dorsalis pedis waveforms are monophasic. Indices The right ankle brachial index by the dorsalis pedis is 1.23. The right ankle brachial index by the posterior tibial artery is 1.4. The right digital-brachial index is .99. The left posterior tibial artery index post exercise is 1.31. The left dorsalis pedis index post exercise is 1.29. The left digital-brachial index is 1.2. Interpretation Summary Triphasic and biphasic Doppler waveforms are noted at ankle level bilaterally. Pulse-volume recording waveform amplitudes appear satisfactory at all levels bilaterally, including low-thigh, calf, ankle, and digital levels. Resting ankle-brachial indices are normal bilaterally. Digital- brachial indices are normal bilaterally. There is no evidence of significant arterial occlusive disease in the lower extremities bilaterally. Ordering Physician: Jun Gastelum Referring Physician: MARYCARMEN RODRIGUEZ Performed By: Marnie Jeffers, DRU, RVT
== END | disposition home or self-care (01) ==
LOC: CVS 10:50
PROVIDERS: Family Provider Family Medicine; PCP Family Medicine; Referring Provider Surgery; Visit Provider Surgery
DX: M79.604 Pain in right leg (principal); M79.605 Pain in left leg; R09.89 Other specified symptoms and signs involving the circulatory and respiratory systems; I73.9 Peripheral vascular disease, unspecified
CPT/HCPCS: 93923

== ENCOUNTER → 2018-12-12 11:29 | Outpatient (CLI) | payer MEDICARE, OTHER, SELFPAY ==
[2018-08-03 13:04] VITALS: BMI 19.8
[2018-11-04 11:07] VITALS: BMI 34.4
[2018-12-12 15:28] LABS: Anion Gap 7 (5-15); BUN 17 mg/dL (7-18); Calcium,Total 8.8 mg/dL (8.5-10.1); Chloride 112 mmol/L (98-107); Creatinine, Serum 1.21 mg/dL (0.70-1.30); EST Glomerular Filtration Rate 62 mL/min (>60); Est Glom Filt Rate - Afr Amer 76 mL/min (>60); Glucose 132 mg/dL (74-106); Potassium 4.5 mmol/L (3.5-5.1); Sodium Level 142 mmol/L (136-145)
[2018-12-12 15:34] LABS: Hemoglobin A1c 7.9 % (4.2-6.3)
== END ==
PROVIDERS: PCP Family Medicine; Visit Provider Family Medicine
DX: N18.3 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, stage 3 (moderate) (principal); E11.9 Type 2 diabetes mellitus without complications
CPT/HCPCS: 36415; 80048; 83036

== ENCOUNTER 2018-12-27 11:30 | Outpatient (RCR) | payer MEDICARE, OTHER, SELFPAY ==
[2018-08-03 13:04] VITALS: BMI 19.8
[2018-11-04 11:07] VITALS: BMI 34.4
[2018-12-13 11:06] VITALS: BP 134/69; PULSE 61; RESP 18; TEMP 36.3; BMI 35.4
--- NOTE | 2018-12-13 13:09 | HP.PCM_ITS ---
(1) Leg swelling Status: Chronic Current Visit: Yes Code(s): M79.89 - Other specified soft tissue disorders (2) Edema of both legs Status: Chronic Current Visit: Yes Code(s): R60.0 - Localized edema (3) Leg pain Status: Chronic Current Visit: Yes Qualifiers: Laterality: bilateral Qualified Code(s): M79.604 - Pain in right leg; M79.605 - Pain in left leg Code(s): M79.606 - Pain in leg, unspecified (4) Sleep apnea Status: Acute Current Visit: No Code(s): G47.30 - Sleep apnea, unspecified (5) Obesity (BMI 35.0-39.9 without comorbidity) Status: Chronic Current Visit: Yes Code(s): E66.9 - Obesity, unspecified (6) History of melanoma Status: Chronic Current Visit: No Code(s): Z85.820 - Personal history of malignant melanoma of skin (7) History of percutaneous transluminal coronary angioplasty Status: Chronic Current Visit: No Code(s): Z98.61 - Coronary angioplasty status Comment: 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 Alexandr Mcclain (8) 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, stage 3 Status: Chronic Current Visit: No Code(s): N18.3 - 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, stage 3 (moderate) (9) Obstructive sleep apnea Status: Chronic Current Visit: No Code(s): G47.33 - Obstructive sleep apnea (adult) (pediatric) (10) TIA (transient ischemic attack) Status: Chronic Current Visit: No Code(s): G45.9 - Transient cerebral ischemic attack, unspecified (11) COPD (chronic obstructive pulmonary disease) Status: Chronic Current Visit: No Code(s): J44.9 - Chronic obstructive pulmonary disease, unspecified (12) CKD (chronic kidney disease) stage 3, GFR 30-59 ml/min Status: Chronic Current Visit: No Code(s): N18.3 - 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, stage 3 (moderate) (13) CAD (coronary artery disease) Status: Chronic Current Visit: No Qualifiers: Code(s): I25.10 - Atherosclerotic heart disease of [place] coronary artery without angina pectoris Comment: 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 Patient has had angioplasty and drug-eluting stenting with a small 2.25 mm stent several its ago. The patient had aggressive in-stent restenosis requiring a re-attempt at angioplasty but was unsuccessful (14) Atherosclerotic heart disease [place] coronary artery w/angina pectoris Status: Chronic Current Visit: No Qualifiers: Code(s): I25.119 - Atherosclerotic heart disease of [place] coronary artery with unspecified angina pectoris Comment: 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 Procedure aborted. 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 PCI-POBA-Cx and Stent-Mid RCA x 2 Multi Link Mini Vision Rx Stent 4.0 x 28 mm 01/21/2006 (15) Type 2 diabetes mellitus without complications Status: Chronic Current Visit: No Qualifiers: Code(s): E11.9 - Type 2 diabetes mellitus without complications (16) Hypertension Status: Chronic Current Visit: No Qualifiers: Code(s): I10 - Essential (primary) hypertension (17) Hyperlipidemia Status: Chronic Current Visit: No Qualifiers: Code(s): E78.5 - Hyperlipidemia, unspecified (18) Old myocardial infarction Status: Chronic Current Visit: No Code(s): I25.2 - Old myocardial infarction (19) History of coronary artery stent placement Status: Chronic Current Visit: No Code(s): Z95.5 - Presence of coronary angioplasty implant and graft Comment: Attempted PCI 08/03/2018: 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 Procedure aborted. No complications. 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 The patient states my legs swell up and the top of my feet. He also states as the day goes on they get worse, then they hurt. The patient sleeps on a flat surface at night. He claims to have an active lifestyle. However, he requires a cane for ambulation. His swelling is worse at the end of the day. He denies a history of thrombophlebitis in the past. 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 Patient has had angioplasty and drug-eluting stenting with a small 2.25 mm stent several its ago. The patient had aggressive in-stent restenosis requiring a re-attempt at angioplasty but was unsuccessful Atherosclerotic heart disease [place] coronary artery w/angina pectoris (Chronic) 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 Procedure aborted. 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 Procedure aborted. No complications. 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 Surgical History: angioplasty, herniorrhaphy, tonsillectomy, TURP, - - PCI ?6, tonsillectomy, cholecystectomy, TURP, hernia repair ?2, left shoulder surgery, neck cyst removal. Allergies/Adverse Reactions: Allergies No Known Allergies Allergy (Verified 11/04/18 10:58) Home Medications: Ambulatory Orders Medication Instructions Recorded Aspirin E.C. [Ecotrin] 81 mg PO DAILY@0800 01/21/17 clopidogrel 75 mg tablet 75 mg PO DAILY #90 tab 06/09/18 nitroglycerin 0.4 mg sublingual 0.4 mg SUBLINGUAL Q5-15M PRN #25 06/09/18 tablet tab potassium chloride ER 20 mEq 20 meq PO BID #180 tab 06/09/18 tablet,extended release(part/cryst) pantoprazole 20 mg tablet,delayed 20 mg PO DAILY 08/26/18 release isosorbide mononitrate ER 60 mg 60 mg PO BID #180 tab 09/08/18 tablet,extended release 24 hr atorvastatin 40 mg tablet 40 mg PO QHS #90 tab 09/14/18 fluoxetine 40 mg capsule 40 mg PO DAILY 90 Days #90 cap 09/21/18 glimepiride 1 mg tablet 1 mg PO DAILY 90 Days #90 tab 09/21/18 mirtazapine 15 mg tablet 15 mg PO DAILY tab 09/21/18 metoprolol tartrate 100 mg tablet 50 mg PO BID #180 tab 10/21/18 amlodipine 2.5 mg tablet 2.5 mg PO DAILY #30 tab 10/28/18 furosemide 40 mg tablet 40 mg PO DAILY tab 10/28/18 spironolactone 25 mg tablet 25 mg PO DAILY #90 tab 10/28/18 - Family History Maternal - - Denies maternal cardiac history Paternal - - Father with a history of Parkinson's disease and prostate cancer Social History: The patient denies use of alcohol and tobacco products. He is . 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 Smoking Status: Former smoker Tobacco Use: Non-smoker Alcohol: None Drugs: None Review of Systems Constitutional: Denies: Chills, Fever, Weight Change Eyes: Denies: Pain, Vision Change HEENT: Denies: Difficulty Hearing, Difficulty Swallowing, Sinus Congestion Cardiovascular: Denies: Chest Pain, Palpitations Respiratory: Denies: Cough, Shortness of Breath Gastrointestinal: Denies: Diarrhea, Nausea, Vomiting Genitourinary: Denies: Dysuria, Hematuria Endocrine: Denies: Heat/ Cold Intolerance, Polydipsia, Polyuria Hematologic/ Lymphatic: Denies: Easy Bruising, Easy Bleeding - Physical Exam Vital Signs Temp Pulse Resp BP 97.3 F L 61 18 134/69 H 12/13/18 11:06 12/13/18 11:06 12/13/18 11:06 12/13/18 11:06 General: Alert, Oriented x3, Cooperative, No apparent distress, Well developed, Well nourished, - - The patient is obese HEENT: Atraumatic, PERRLA, EOMI, Normocephalic Oral: Moist Mucosa Neck: Supple, No JVD, Negative Carotid Bruits, Negative Hepatojugular Reflux, No Nodes, No Nuchal Rigidity, Trachea Midline Lungs: Clear to auscultation, Normal air movement, No rhonchi, No wheeze, No rales Cardiovascular: Regular rate, Regular Rhythm, Normal S1, Normal S2, No murmurs Abdomen: Soft, Non Tender, Non-Distended, Obese Extremities: No clubbing, No cyanosis, No Calf Tenderness, - - Swelling and edema is noted in the lower extremity's bilaterally. It is moderate in severity. There are no open wounds or ulcerations. Circumference measurements are documented elsewhere. Skin: No rashes, No breakdown Wound Measurements and Assessment WC - Nurse 1 - General Ulcer Measurement Start: 12/13/18 11:00 Freq: Status: Active Protocol: Activity Type Activity Date Activity User E-Sign Co-Sign Detail Recorded Client Recorded Date Recorded By Document 12/13/18 11:06 [id number] [id number] 12/13/18 11:16 12/13/18 11:06 Wound Center Nurse 1 [Edema Assessment] -Lower Limb Edema Present Yes -Right Calf (cm) 38.5 -Right Ankle (cm) 25 -Left Calf (cm) 38 -Left Ankle (cm) 25.5 WC - Nurse 2 - General Ulcer CM Notes Start: 12/13/18 11:00 Freq: Status: Active Protocol: Activity Type Activity Date Activity User E-Sign Co-Sign Detail Recorded Client Recorded Date Recorded By Document 12/13/18 11:57 DV [id number] 12/13/18 11:59 DV 12/13/18 11:57 Pain Scale: 0-10 Numeric [Pain] -Is Patient Pain Free? Yes Musculoskeletal: No Muscle Wasting Neurological: Cranial nerves II-XII grossly intact, Neuro grossly intact Psych/Mental Status: Normal Affect, Appropriate, Alert and oriented to time, place, person, mood and affect Debridement Note Post-Debridement Measurements/Treatment WC - Nurse 2 - General Ulcer CM Notes Start: 12/13/18 11:00 Freq: Status: Active Protocol: Activity Type Activity Date Activity User E-Sign Co-Sign Detail Recorded Client Recorded Date Recorded By Document 12/13/18 11:57 DV [id number] 12/13/18 11:59 DV 12/13/18 11:57 Pain Scale: 0-10 Numeric Is Patient Pain Free? Yes No debridement was completed today - There are no open wounds or ulcerations Assessment/Plan Active Problems (Last Reviewed 11/04/18 @ 10:58 by Estefani Mack) Leg swelling (Chronic) Edema of both legs (Chronic) Leg pain (Chronic) Obesity (BMI 35.0-39.9 without comorbidity) (Chronic) Assessment: This is a 73-year-old male with multiple medical problems. In general, it appears as though the patient suffers from dependent swelling and edema in his lower extremities. This is likely due to a variety of factors. In part, it may be related to his history of congestive heart failure, renal insufficiency, etc. It is also likely related to his habits, including prolonged idle sitting, lack of activity, morbid obesity, etc. patient's laboratory studies have been reviewed, and are as follows: Sodium 142, potassium 4.5, chloride 112, BUN 17, creatinine 1.21, glucose 132, hemoglobin A1c 7.9, calcium 8.8. Plan: Lifestyle changes have been recommended. Patient has been advised to elevate his lower extremities as much as possible. Elevation is to be to heart level, or higher. This is to be accomplished as often as possible. He is to avoid idle standing and sitting. Activity has been encouraged. Weight loss has also been recommended. A noninvasive lower extremity arterial study reveals no evidence of significant arterial occlusive disease in the lower extremities. Therefore, we are to implement compression by means of a 3M 2 layer compression wrap, which will be changed twice weekly. Patient is to return in 1 week for reassessment. Patient is to continue under the management of his primary care physician in terms of glycemic control and his other medical problems. Influenza vaccine was not administered today. The patient is not a smoker. He stands 5 feet 9 inches tall. He weighs 238 pounds. His BMI is 35.1, which places him in a class II category. Weight loss has been recommended, and collaboration with his primary care physician in this regard has been recommended.
[2018-12-16 11:43] VITALS: BP 135/83; PULSE 64; RESP 18; TEMP 36.1; BMI 35.4
[2018-12-20 09:49] VITALS: BP 119/70; PULSE 52; RESP 16; TEMP 36.8; BMI 35.4
--- NOTE | 2018-12-20 10:30 | PCM.WC.HP ---
(1) Leg swelling Status: Chronic Current Visit: Yes Code(s): M79.89 - Other specified soft tissue disorders (2) Edema of both legs Status: Chronic Current Visit: Yes Code(s): R60.0 - Localized edema (3) Leg pain Status: Chronic Current Visit: Yes Qualifiers: Laterality: bilateral Qualified Code(s): M79.604 - Pain in right leg; M79.605 - Pain in left leg Code(s): M79.606 - Pain in leg, unspecified (4) Sleep apnea Status: Acute Current Visit: No Code(s): G47.30 - Sleep apnea, unspecified (5) Obesity (BMI 35.0-39.9 without comorbidity) Status: Chronic Current Visit: Yes Code(s): E66.9 - Obesity, unspecified (6) History of melanoma Status: Chronic Current Visit: No Code(s): Z85.820 - Personal history of malignant melanoma of skin (7) History of percutaneous transluminal coronary angioplasty Status: Chronic Current Visit: No Code(s): Z98.61 - Coronary angioplasty status Comment: 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 Alexandr Mcclain (8) 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, stage 3 Status: Chronic Current Visit: No Code(s): N18.3 - 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, stage 3 (moderate) (9) Obstructive sleep apnea Status: Chronic Current Visit: No Code(s): G47.33 - Obstructive sleep apnea (adult) (pediatric) (10) TIA (transient ischemic attack) Status: Chronic Current Visit: No Code(s): G45.9 - Transient cerebral ischemic attack, unspecified (11) COPD (chronic obstructive pulmonary disease) Status: Chronic Current Visit: No Code(s): J44.9 - Chronic obstructive pulmonary disease, unspecified (12) CKD (chronic kidney disease) stage 3, GFR 30-59 ml/min Status: Chronic Current Visit: No Code(s): N18.3 - 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, stage 3 (moderate) (13) CAD (coronary artery disease) Status: Chronic Current Visit: No Qualifiers: Code(s): I25.10 - Atherosclerotic heart disease of three affiliated coronary artery without angina pectoris Comment: 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 Patient has had angioplasty and drug-eluting stenting with a small 2.25 mm stent several its ago. 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 Procedure aborted. 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 PCI-POBA-Cx and Stent-Mid RCA x 2 Multi Link Mini Vision Rx Stent 4.0 x 28 mm 01/21/2006 (15) Type 2 diabetes mellitus without complications Status: Chronic Current Visit: No Qualifiers: Code(s): E11.9 - Type 2 diabetes mellitus without complications (16) Hypertension Status: Chronic Current Visit: No Qualifiers: Code(s): I10 - Essential (primary) hypertension (17) Hyperlipidemia Status: Chronic Current Visit: No Qualifiers: Code(s): E78.5 - Hyperlipidemia, unspecified (18) Old myocardial infarction Status: Chronic Current Visit: No Code(s): I25.2 - Old myocardial infarction (19) History of coronary artery stent placement Status: Chronic Current Visit: No Code(s): Z95.5 - Presence of coronary angioplasty implant and graft Comment: Attempted PCI 08/03/2018: 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 Procedure aborted. No complications. 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 The patient states my legs swell up and the top of my feet. He also states as the day goes on they get worse, then they hurt. The patient sleeps on a flat surface at night. He claims to have an active lifestyle. However, he requires a cane for ambulation. His swelling is worse at the end of the day. He denies a history of thrombophlebitis in the past. 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 Patient has had angioplasty and drug-eluting stenting with a small 2.25 mm stent several its ago. 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 Procedure aborted. 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 Procedure aborted. No complications. 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 Allergies/Adverse Reactions: Allergies No Known Allergies Allergy (Verified 11/04/18 10:58) Home Medications: Ambulatory Orders Medication Instructions Recorded Aspirin E.C. [Ecotrin] 81 mg PO DAILY@0800 01/21/17 clopidogrel 75 mg tablet 75 mg PO DAILY #90 tab 06/09/18 nitroglycerin 0.4 mg sublingual 0.4 mg SUBLINGUAL Q5-15M PRN #25 06/09/18 tablet tab potassium chloride ER 20 mEq 20 meq PO BID #180 tab 06/09/18 tablet,extended release(part/cryst) pantoprazole 20 mg tablet,delayed 20 mg PO DAILY 08/26/18 release isosorbide mononitrate ER 60 mg 60 mg PO BID #180 tab 09/08/18 tablet,extended release 24 hr atorvastatin 40 mg tablet 40 mg PO QHS #90 tab 09/14/18 fluoxetine 40 mg capsule 40 mg PO DAILY 90 Days #90 cap 09/21/18 glimepiride 1 mg tablet 1 mg PO DAILY 90 Days #90 tab 09/21/18 mirtazapine 15 mg tablet 15 mg PO DAILY tab 09/21/18 metoprolol tartrate 100 mg tablet 50 mg PO BID #180 tab 10/21/18 amlodipine 2.5 mg tablet 2.5 mg PO DAILY #30 tab 10/28/18 furosemide 40 mg tablet 40 mg PO DAILY tab 10/28/18 spironolactone 25 mg tablet 25 mg PO DAILY #90 tab 10/28/18 - Family History Maternal - - Denies maternal cardiac history Paternal - - Father with a history of Parkinson's disease and prostate cancer Smoking Status: Former smoker Tobacco Use: Non-smoker Alcohol: None Drugs: None Review of Systems Constitutional: Denies: Chills, Fever, Weight Change Eyes: Denies: Pain, Vision Change HEENT: Denies: Difficulty Hearing, Difficulty Swallowing, Sinus Congestion Cardiovascular: Denies: Chest Pain, Palpitations Respiratory: Denies: Cough, Shortness of Breath Gastrointestinal: Denies: Diarrhea, Nausea, Vomiting Genitourinary: Denies: Dysuria, Hematuria Endocrine: Denies: Heat/ Cold Intolerance, Polydipsia, Polyuria Hematologic/ Lymphatic: Denies: Easy Bruising, Easy Bleeding - Physical Exam Vital Signs Temp Pulse Resp BP 98.2 F 52 L 16 119/70 12/20/18 09:49 12/20/18 09:49 12/20/18 09:49 12/20/18 09:49 General: Alert, Oriented x3, Cooperative, No apparent distress, Well developed, Well nourished HEENT: Atraumatic, PERRLA, EOMI, Normocephalic Oral: Moist Mucosa Neck: No JVD Lungs: Normal air movement Abdomen: Non-Distended Extremities: No clubbing, No cyanosis, No Calf Tenderness, - - The swelling and edema in the patient's lower extremities is markedly diminished, and essentially resolved. There are no open wounds or ulcerations. There are no significant skin changes on either side. Circumference measurements are documented elsewhere. Skin: No rashes, No breakdown Wound Measurements and Assessment WC - Nurse 1 - General Ulcer Measurement Start: 12/13/18 11:00 Freq: Status: Active Protocol: Activity Type Activity Date Activity User E-Sign Co-Sign Detail Recorded Client Recorded Date Recorded By Document 12/20/18 09:49 IN [id number] 12/20/18 09:53 IN 12/20/18 09:49 Wound Center Nurse 1 [Edema Assessment] -Right Calf (cm) 37.5 -Right Ankle (cm) 23.0 -Left Calf (cm) 39 -Left Ankle (cm) 23 Musculoskeletal: No Muscle Wasting Neurological: Cranial nerves II-XII grossly intact, Neuro grossly intact Psych/Mental Status: Normal Affect, Appropriate, Alert and oriented to time, place, person, mood and affect Debridement Note Post-Debridement Measurements/Treatment WC - Nurse 2 - General Ulcer CM Notes Start: 12/13/18 11:00 Freq: Status: Active Protocol: Activity Type Activity Date Activity User E-Sign Co-Sign Detail Recorded Client Recorded Date Recorded By Document 12/13/18 11:57 DV [id number] 12/13/18 11:59 DV 12/13/18 11:57 Pain Scale: 0-10 Numeric Is Patient Pain Free? Yes No debridement was completed today - There are no open wounds or ulcerations Assessment/Plan Active Problems (Last Reviewed 11/04/18 @ 10:58 by Estefani Mack) Leg swelling (Chronic) Edema of both legs (Chronic) Leg pain (Chronic) Obesity (BMI 35.0-39.9 without comorbidity) (Chronic) Assessment: This is a 73-year-old male with multiple medical problems. In general, it appears as though the patient suffers from dependent swelling and edema in his lower extremities. This is likely due to a variety of factors. In part, it may be related to his history of congestive heart failure, renal insufficiency, etc. It is also likely related to his habits, including prolonged idle sitting, lack of activity, morbid obesity, etc. patient's laboratory studies have been reviewed, and are as follows: Sodium 142, potassium 4.5, chloride 112, BUN 17, creatinine 1.21, glucose 132, hemoglobin A1c 7.9, calcium 8.8. Plan: Lifestyle changes have been recommended. Patient has been advised to elevate his lower extremities as much as possible. Elevation is to be to heart level, or higher. This is to be accomplished as often as possible. He is to avoid idle standing and sitting. Activity has been encouraged. Weight loss has also been recommended. A noninvasive lower extremity arterial study reveals no evidence of significant arterial occlusive disease in the lower extremities. We are to continue compression by means of a 3M 2 layer compression wrap, which will be changed twice weekly. The patient has been counseled as to long-term compression options. We have discussed graduated compression stockings of 20 to 30 mmHg, versus Velcro compression garments. The patient is to choose between the 2, and efforts will be made to help the patient secure the appropriate compression for long-term use. Patient will return in 2 weeks, at which time it is anticipated that a long-term compression modality will have been obtained, and the patient will likely be discharged if he is comfortable with recommendations for long-term management. Patient is to return in 2 weeks for reassessment. Patient is to continue under the management of his primary care physician in terms of glycemic control and his other medical problems. Influenza vaccine was not administered today. The patient is not a smoker. He stands 5 feet 9 inches tall. He weighs 238 pounds. His BMI is 35.1, which places him in a class II category. Weight loss has been recommended, and collaboration with his primary care physician in this regard has been recommended.
[2018-12-23 11:19] VITALS: BP 147/80; PULSE 56; RESP 18; TEMP 36.4; BMI 35.4
[2018-12-27 12:05] VITALS: BP 147/77; PULSE 72; RESP 18; TEMP 36.7; BMI 35.4
== END 2018-12-31 23:59 ==
LOC: WC 11:30
PROVIDERS: PCP Family Medicine; Visit Provider Surgery
DX: R60.0 Localized edema (principal); I13.0 Hypertensive heart and chronic kidney disease with heart failure and stage 1 through stage 4 chronic kidney disease, or unspecified chronic kidney disease; I50.9 Heart failure, unspecified; M79.89 Other specified soft tissue disorders; M79.604 Pain in right leg; M79.605 Pain in left leg; G47.30 Sleep apnea, unspecified; E66.9 Obesity, unspecified; G47.33 Obstructive sleep apnea (adult) (pediatric); I25.10 Atherosclerotic heart disease of native coronary artery without angina pectoris; E78.5 Hyperlipidemia, unspecified; E11.22 Type 2 diabetes mellitus with diabetic chronic kidney disease; N18.3 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, stage 3 (moderate); I25.2 Old myocardial infarction; Z68.35 Body mass index [BMI] 35.0-35.9, adult; Z71.3 Dietary counseling and surveillance; Z85.820 Personal history of malignant melanoma of skin; Z79.899 Other long term (current) drug therapy; Z79.82 Long term (current) use of aspirin; Z79.84 Long term (current) use of oral hypoglycemic drugs; Z79.02 Long term (current) use of antithrombotics/antiplatelets; Z87.891 Personal history of nicotine dependence; E66.01 Morbid (severe) obesity due to excess calories; J44.9 Chronic obstructive pulmonary disease, unspecified
CPT/HCPCS: 29580; 29581; 99212; 99213; G0463

== ENCOUNTER 2019-01-17 14:30 | Outpatient (RCR) | payer MEDICARE, OTHER, SELFPAY ==
[2018-08-03 13:04] VITALS: BMI 19.8
[2018-12-29 11:00] VITALS: BMI 34.4
[2019-01-01 01:02] VITALS: BP 147/77; PULSE 72; RESP 18; TEMP 36.7
[2019-01-03 10:22] VITALS: BP 132/83; PULSE 51; RESP 18; TEMP 36.6; BMI 34.4
[2019-01-13 11:14] VITALS: BP 134/82; PULSE 51; RESP 18; TEMP 36; BMI 34.4
--- NOTE | 2019-01-13 12:33 | PN.PCM_ITS ---
(1) Atherosclerotic heart disease [place] coronary artery w/angina pectoris Status: Chronic Current Visit: Yes Qualifiers: Code(s): I25.119 - Atherosclerotic heart disease of [place] coronary artery with unspecified angina pectoris Comment: 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 Procedure aborted. 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 Patient has had angioplasty and drug-eluting stenting with a small 2.25 mm stent several its ago. The patient had aggressive in-stent restenosis requiring a re-attempt at angioplasty but was unsuccessful (3) CKD (chronic kidney disease) stage 3, GFR 30-59 ml/min Status: Chronic Current Visit: Yes Code(s): N18.3 - 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, stage 3 (moderate) (4) COPD (chronic obstructive pulmonary disease) Status: Chronic Current Visit: Yes Code(s): J44.9 - Chronic obstructive pulmonary disease, unspecified (5) 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, stage 3 Status: Chronic Current Visit: Yes Code(s): N18.3 - 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, stage 3 (moderate) (6) Edema of both legs Status: Chronic Current Visit: Yes Code(s): R60.0 - Localized edema (7) History of coronary artery stent placement Status: Chronic Current Visit: Yes Code(s): Z95.5 - Presence of coronary angioplasty implant and graft Comment: Attempted PCI 08/03/2018: 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 Procedure aborted. No complications. 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 The patient states my legs swell up and the top of my feet. He also states as the day goes on they get worse, then they hurt. The patient sleeps on a flat surface at night. He claims to have an active lifestyle. However, he requires a cane for ambulation. His swelling is worse at the end of the day. He denies a history of thrombophlebitis in the past. Progress of Wound: Following up on patient for Dr. Gastelum. Patient has a history of lower leg edema. No edema present at this time has been using the wraps 3M's. Patient has many comorbidities with his edema. Patient is to start using CircAid wraps this weekend. Today we will 3M wrap him until he gets his CircA id's. She is to follow-up with Dr. Gastelum as needed - Physical Exam Vital Signs Temp Pulse Resp BP 96.8 F L 51 L 18 134/82 H 01/13/19 11:14 01/13/19 11:14 01/13/19 11:14 01/13/19 11:14 General: Oriented x3, Cooperative, Well developed HEENT: Atraumatic, PERRLA Oral: Moist Mucosa Neck: Supple, No JVD Lungs: Clear to auscultation, Normal air movement Cardiovascular: Regular rate, Regular Rhythm Abdomen: Bowel Sounds Present, Soft, Non Tender, No Hepato-splenomegaly Extremities: No clubbing, No edema Wound Measurements and Assessment WC - Nurse 1 - General Ulcer Measurement Start: 01/03/19 10:22 Freq: Status: Active Protocol: Activity Type Activity Date Activity User E-Sign Co-Sign Detail Recorded Client Recorded Date Recorded By Document 01/13/19 11:14 [facility] [id number] 01/13/19 11:22 [facility] 01/13/19 11:14 Wound Center Nurse 1 [Edema Assessment] -Lower Limb Edema Present Yes -Right Calf (cm) 36.4 -Right Ankle (cm) 23.4 -Left Calf (cm) 37.1 -Left Ankle (cm) 23.8 WC - Nurse 2 - General Ulcer CM Notes Start: 01/03/19 10:22 Freq: Status: Active Protocol: Activity Type Activity Date Activity User E-Sign Co-Sign Detail Recorded Client Recorded Date Recorded By Document 01/13/19 11:37 MW [id number] 01/13/19 11:38 MW 01/13/19 11:37 Pain Scale: 0-10 Numeric [Pain] -Is Patient Pain Free? Yes Musculoskeletal: No Tenderness to Palpation of Joints or Extremities Lymphatic: No Cervical, Supraclavicular, or Inguinal Adenopathy Neurological: Cranial nerves II-XII grossly intact, Neuro grossly intact Psych/Mental Status: Normal Affect, Appropriate Debridement Note Post-Debridement Measurements/Treatment WC - Nurse 2 - General Ulcer CM Notes Start: 01/03/19 10:22 Freq: Status: Active Protocol: Activity Type Activity Date Activity User E-Sign Co-Sign Detail Recorded Client Recorded Date Recorded By Document 01/13/19 11:37 MW [id number] 01/13/19 11:38 MW 01/13/19 11:37 Pain Scale: 0-10 Numeric Is Patient Pain Free? 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 Patient has had angioplasty and drug-eluting stenting with a small 2.25 mm stent several its ago. The patient had aggressive in-stent restenosis requiring a re-attempt at angioplasty but was unsuccessful Atherosclerotic heart disease [place] coronary artery w/angina pectoris (Chronic) 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 Procedure aborted. 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 Procedure aborted. No complications. 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 In general, it appears as though the patient suffers from dependent swelling and edema in his lower extremities. This is likely due to a variety of factors. In part, it may be related to his history of congestive heart failure, renal insufficiency, etc. It is also likely related to his habits, including prolonged idle sitting, lack of activity, morbid obesity, etc. patient's laboratory studies have been reviewed, and are as follows: Sodium 142, potassium 4.5, chloride 112, BUN 17, creatinine 1.21, glucose 132, hemoglobin A1c 7.9, calcium 8.8. Plan: Lifestyle changes have been recommended. Patient has been advised to elevate his lower extremities as much as possible. Elevation is to be to heart level, or higher. This is to be accomplished as often as possible. He is to avoid idle standing and sitting. Activity has been encouraged. Weight loss has also been recommended. A noninvasive lower extremity arterial study reveals no evidence of significant arterial occlusive disease in the lower extremities. We are to continue compression by means of a 3M 2 layer compression wrap, which will be changed twice weekly. The patient has been counseled as to long-term compression options. We have discussed graduated compression stockings of 20 to 30 mmHg, versus Velcro compression garments. The patient is to choose between the 2, and efforts will be made to help the patient secure the appropriate compression for long-term use. Patient will return in 2 weeks, at which time it is anticipated that a long-term compression modality will have been obtained, and the patient will likely be discharged if he is comfortable with recommendations for long-term management. Patient is to return in 2 weeks for reassessment. Patient is to continue under the management of his primary care physician in terms of glycemic control and his other medical problems. Influenza vaccine was not administered today. The patient is not a smoker. He stands 5 feet 9 inches tall. He weighs 238 pounds. His BMI is 35.1, which places him in a class II category. Weight loss has been recommended, and collaboration with his primary care physician in this regard has been recommended.
[2019-01-13 13:40] LABS: Anion Gap 7 (5-15); BUN 19 mg/dL (7-18); BUN/Creat Ratio 14.4 RATIO (10-20); Calcium,Total 8.7 mg/dL (8.5-10.1); Chloride 108 mmol/L (98-107); Creatinine, Serum 1.32 mg/dL (0.70-1.30); EST Glomerular Filtration Rate 56 mL/min (>60); Est Glom Filt Rate - Afr Amer 68 mL/min (>60); Estimated Creatinine Clearance 49.84 ml/min; Glucose 141 mg/dL (74-106); Potassium 4.3 mmol/L (3.5-5.1); Sodium Level 139 mmol/L (136-145)
[2019-01-17 15:06] VITALS: BP 124/86; PULSE 59; RESP 20; TEMP 36.5; BMI 34.4
--- NOTE | 2019-01-17 15:30 | PCM.WC.HP ---
(1) Leg swelling Status: Chronic Current Visit: Yes Code(s): M79.89 - Other specified soft tissue disorders (2) Edema of both legs Status: Chronic Current Visit: Yes Code(s): R60.0 - Localized edema (3) Leg pain Status: Chronic Current Visit: Yes Qualifiers: Laterality: bilateral Qualified Code(s): M79.604 - Pain in right leg; M79.605 - Pain in left leg Code(s): M79.606 - Pain in leg, unspecified (4) Sleep apnea Status: Acute Current Visit: No Code(s): G47.30 - Sleep apnea, unspecified (5) Obesity (BMI 35.0-39.9 without comorbidity) Status: Chronic Current Visit: No Code(s): E66.9 - Obesity, unspecified (6) History of melanoma Status: Chronic Current Visit: No Code(s): Z85.820 - Personal history of malignant melanoma of skin (7) CHF (congestive heart failure) Status: Chronic Current Visit: Yes Code(s): I50.9 - Heart failure, unspecified (8) History of percutaneous transluminal coronary angioplasty Status: Chronic Current Visit: No Code(s): Z98.61 - Coronary angioplasty status Comment: 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 Alexandr Mcclain (9) 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, stage 3 Status: Chronic Current Visit: Yes Code(s): N18.3 - 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, stage 3 (moderate) (10) Obstructive sleep apnea Status: Chronic Current Visit: No Code(s): G47.33 - Obstructive sleep apnea (adult) (pediatric) (11) TIA (transient ischemic attack) Status: Chronic Current Visit: No Code(s): G45.9 - Transient cerebral ischemic attack, unspecified (12) COPD (chronic obstructive pulmonary disease) Status: Chronic Current Visit: Yes Code(s): J44.9 - Chronic obstructive pulmonary disease, unspecified (13) MATTHEW (obstructive sleep apnea) Status: Chronic Current Visit: No Code(s): G47.33 - Obstructive sleep apnea (adult) (pediatric) (14) CKD (chronic kidney disease) stage 3, GFR 30-59 ml/min Status: Chronic Current Visit: Yes Code(s): N18.3 - 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, stage 3 (moderate) (15) CAD (coronary artery disease) Status: Chronic Current Visit: No Qualifiers: Code(s): I25.10 - Atherosclerotic heart disease of agdaagux coronary artery without angina pectoris Comment: 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 Patient has had angioplasty and drug-eluting stenting with a small 2.25 mm stent several its ago. 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 Procedure aborted. 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 PCI-POBA-Cx and Stent-Mid RCA x 2 Multi Link Mini Vision Rx Stent 4.0 x 28 mm 01/21/2006 (17) Type 2 diabetes mellitus without complications Status: Chronic Current Visit: No Qualifiers: Code(s): E11.9 - Type 2 diabetes mellitus without complications (18) Hypertension Status: Chronic Current Visit: No Qualifiers: Code(s): I10 - Essential (primary) hypertension (19) Hyperlipidemia Status: Chronic Current Visit: No Qualifiers: Code(s): E78.5 - Hyperlipidemia, unspecified (20) Old myocardial infarction Status: Chronic Current Visit: No Code(s): I25.2 - Old myocardial infarction (21) Obesity Status: Chronic Current Visit: Yes Code(s): E66.9 - Obesity, unspecified (22) History of coronary artery stent placement Status: Chronic Current Visit: No Code(s): Z95.5 - Presence of coronary angioplasty implant and graft Comment: Attempted PCI 08/03/2018: 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 Procedure aborted. No complications. 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 The patient states my legs swell up and the top of my feet. He also states as the day goes on they get worse, then they hurt. The patient sleeps on a flat surface at night. He claims to have an active lifestyle. However, he requires a cane for ambulation. His swelling is worse at the end of the day. He denies a history of thrombophlebitis in the past. 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 Patient has had angioplasty and drug-eluting stenting with a small 2.25 mm stent several its ago. 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 Procedure aborted. 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 Procedure aborted. No complications. 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 Allergies/Adverse Reactions: Allergies No Known Allergies Allergy (Verified 12/29/18 11:05) Home Medications: Ambulatory Orders Medication Instructions Recorded Aspirin E.C. [Ecotrin] 81 mg PO DAILY@0800 01/21/17 clopidogrel 75 mg tablet 75 mg PO DAILY #90 tab 06/09/18 nitroglycerin 0.4 mg sublingual 0.4 mg SUBLINGUAL Q5-15M PRN #25 06/09/18 tablet tab pantoprazole 20 mg tablet,delayed 20 mg PO DAILY 08/26/18 release isosorbide mononitrate ER 60 mg 60 mg PO BID #180 tab 09/08/18 tablet,extended release 24 hr atorvastatin 40 mg tablet 40 mg PO QHS #90 tab 09/14/18 fluoxetine 40 mg capsule 40 mg PO DAILY 90 Days #90 cap 09/21/18 glimepiride 1 mg tablet 2 mg PO DAILY 90 Days #90 tab 09/21/18 mirtazapine 15 mg tablet 15 mg PO DAILY tab 09/21/18 metoprolol tartrate 100 mg tablet 50 mg PO BID #180 tab 10/21/18 amlodipine 2.5 mg tablet 2.5 mg PO DAILY #30 tab 10/28/18 spironolactone 25 mg tablet 25 mg PO DAILY #90 tab 10/28/18 furosemide 40 mg tablet 40 mg PO BID #180 tab 12/29/18 potassium chloride ER 20 mEq 40 meq PO BID #360 tab 12/30/18 tablet,extended release(part/cryst) - Family History Maternal - - Denies maternal cardiac history Paternal - - Father with a history of Parkinson's disease and prostate cancer Smoking Status: Former smoker Tobacco Use: Non-smoker Review of Systems Constitutional: Denies: Chills, Fever, Weight Change Eyes: Denies: Pain, Vision Change HEENT: Denies: Difficulty Hearing, Difficulty Swallowing, Sinus Congestion Cardiovascular: Denies: Chest Pain, Palpitations Respiratory: Denies: Cough, Shortness of Breath Gastrointestinal: Denies: Diarrhea, Nausea, Vomiting Genitourinary: Denies: Dysuria, Hematuria Endocrine: Denies: Heat/ Cold Intolerance, Polydipsia, Polyuria Hematologic/ Lymphatic: Denies: Easy Bruising, Easy Bleeding - Physical Exam Vital Signs Temp Pulse Resp BP 97.7 F L 59 L 20 H 124/86 H 01/17/19 15:06 01/17/19 15:06 01/17/19 15:06 01/17/19 15:06 General: Alert, Oriented x3, Cooperative, No apparent distress, Well developed, Well nourished HEENT: Atraumatic, PERRLA, EOMI, Normocephalic Oral: Moist Mucosa Neck: No JVD Lungs: Normal air movement Abdomen: Non-Distended Extremities: No clubbing, No cyanosis, No edema, No Calf Tenderness, - - There is no significant swelling or edema in the patient's lower extremities. There are no significant skin changes. There is no evidence of cellulitis or infection. There are no open wounds or ulcerations. Skin: No rashes, No breakdown Wound Measurements and Assessment WC - Nurse 1 - General Ulcer Measurement Start: 01/03/19 10:22 Freq: Status: Active Protocol: Activity Type Activity Date Activity User E-Sign Co-Sign Detail Recorded Client Recorded Date Recorded By Document 01/17/19 15:06 DL [id number] 01/17/19 15:15 DL 01/17/19 15:06 Wound Center Nurse 1 [Edema Assessment] -Right Calf (cm) 35 -Right Ankle (cm) 22.5 -Left Calf (cm) 35.7 -Left Ankle (cm) 22.6 Musculoskeletal: No Muscle Wasting Neurological: Cranial nerves II-XII grossly intact, Neuro grossly intact Psych/Mental Status: Normal Affect, Appropriate, Alert and oriented to time, place, person, mood and affect Debridement Note Post-Debridement Measurements/Treatment WC - Nurse 2 - General Ulcer CM Notes Start: 01/03/19 10:22 Freq: Status: Active Protocol: Activity Type Activity Date Activity User E-Sign Co-Sign Detail Recorded Client Recorded Date Recorded By Document 01/13/19 11:37 MW [id number] 01/13/19 11:38 MW 01/13/19 11:37 Pain Scale: 0-10 Numeric Is Patient Pain Free? Yes No debridement was completed today - There are no open wounds or ulcerations Assessment/Plan Active Problems (Last Reviewed 12/28/18 @ 10:43 by Maria R Bautista) Leg swelling (Chronic) Edema of both legs (Chronic) Leg pain (Chronic) CHF (congestive heart failure) (Chronic) 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, stage 3 (Chronic) COPD (chronic obstructive pulmonary disease) (Chronic) CKD (chronic kidney disease) stage 3, GFR 30-59 ml/min (Chronic) Obesity (Chronic) Assessment: This is a 73-year-old male with multiple medical problems. In general, it appears as though the patient suffers from dependent swelling and edema in his lower extremities. This is likely due to a variety of factors. In part, it may be related to his history of congestive heart failure, renal insufficiency, etc. It is also likely related to his habits, including prolonged idle sitting, lack of activity, morbid obesity, etc. patient's laboratory studies have been reviewed, and are as follows: Sodium 142, potassium 4.5, chloride 112, BUN 17, creatinine 1.21, glucose 132, hemoglobin A1c 7.9, calcium 8.8. Plan: Lifestyle changes have been recommended. Patient has been advised to elevate his lower extremities as much as possible. Elevation is to be to heart level, or higher. This is to be accomplished as often as possible. He is to avoid idle standing and sitting. Activity has been encouraged. Weight loss has also been recommended. A noninvasive lower extremity arterial study reveals no evidence of significant arterial occlusive disease in the lower extremities. We are to continue compression by means of double layer Tubigrip's. The patient has obtained graduated compression stockings of 30 to 40 mmHg compression, likely more compression than necessary. We will attempt to exchange for compression stockings of 20 to 30 mmHg, knee-high length. Patient is to follow-up in 2 weeks for reevaluation. At that time, if he continues to do well, it is likely that he will be discharged. Patient is to continue under the management of his primary care physician in terms of glycemic control and his other medical problems. Influenza vaccine was not administered today. The patient is not a smoker. He stands 5 feet 9 inches tall. He weighs 238 pounds. His BMI is 35.1, which places him in a class II category. Weight loss has been recommended, and collaboration with his primary care physician in this regard has been recommended.
== END 2019-01-30 23:59 ==
LOC: WC 14:30
PROVIDERS: Internal Medicine Cardiovascular Disease; Family Provider Family Medicine; PCP Family Medicine; Referring Provider Surgery; Visit Provider Surgery
DX: R60.0 Localized edema (principal); M79.89 Other specified soft tissue disorders; J44.9 Chronic obstructive pulmonary disease, unspecified; N18.3 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, stage 3 (moderate); E11.22 Type 2 diabetes mellitus with diabetic chronic kidney disease; I13.0 Hypertensive heart and chronic kidney disease with heart failure and stage 1 through stage 4 chronic kidney disease, or unspecified chronic kidney disease; I25.10 Atherosclerotic heart disease of native coronary artery without angina pectoris; E66.01 Morbid (severe) obesity due to excess calories; I50.9 Heart failure, unspecified; G47.33 Obstructive sleep apnea (adult) (pediatric); E78.5 Hyperlipidemia, unspecified; I25.2 Old myocardial infarction; Z68.35 Body mass index [BMI] 35.0-35.9, adult; Z71.3 Dietary counseling and surveillance; Z85.820 Personal history of malignant melanoma of skin; Z79.899 Other long term (current) drug therapy; Z79.82 Long term (current) use of aspirin; Z87.891 Personal history of nicotine dependence
CPT/HCPCS: 29581; 36415; 80048; 99212; G0463

== ENCOUNTER → 2019-02-13 12:57 | Outpatient (CLI) | payer MEDICARE, OTHER, SELFPAY ==
[2018-08-03 13:04] VITALS: BMI 19.8
[2019-01-31 10:29] VITALS: BMI 34.4
[2019-02-13 15:53] LABS: Anion Gap 5 (5-15); BUN 19 mg/dL (7-18); BUN/Creat Ratio 14.2 RATIO (10-20); Calcium,Total 8.7 mg/dL (8.5-10.1); Chloride 109 mmol/L (98-107); Creatinine, Serum 1.34 mg/dL (0.70-1.30); EST Glomerular Filtration Rate 56 mL/min (>60); Est Glom Filt Rate - Afr Amer 67 mL/min (>60); Glucose 149 mg/dL (74-106); Potassium 4.7 mmol/L (3.5-5.1); Sodium Level 141 mmol/L (136-145)
== END ==
PROVIDERS: Family Provider Family Medicine; PCP Family Medicine; Visit Provider Family Medicine
DX: N18.3 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, stage 3 (moderate) (principal)
CPT/HCPCS: 36415; 80048

== ENCOUNTER 2019-02-21 10:30 | Outpatient (RCR) | payer MEDICARE, OTHER, SELFPAY ==
[2018-08-03 13:04] VITALS: BMI 19.8
[2019-01-31 00:55] VITALS: BP 124/86; PULSE 59; RESP 20; TEMP 36.5
[2019-01-31 10:29] VITALS: BP 135/80; PULSE 50; RESP 16; TEMP 35.7; BMI 34.4
--- NOTE | 2019-01-31 10:57 | PCM.WC.HP ---
(1) Leg swelling Status: Chronic Current Visit: Yes Code(s): M79.89 - Other specified soft tissue disorders (2) Edema of both legs Status: Chronic Current Visit: Yes Code(s): R60.0 - Localized edema (3) Leg pain Status: Chronic Current Visit: Yes Qualifiers: Laterality: bilateral Code(s): M79.606 - Pain in leg, unspecified (4) Sleep apnea Status: Acute Current Visit: No Code(s): G47.30 - Sleep apnea, unspecified (5) Obesity (BMI 35.0-39.9 without comorbidity) Status: Chronic Current Visit: Yes Code(s): E66.9 - Obesity, unspecified (6) History of melanoma Status: Chronic Current Visit: No Code(s): Z85.820 - Personal history of malignant melanoma of skin (7) CHF (congestive heart failure) Status: Chronic Current Visit: No Code(s): I50.9 - Heart failure, unspecified (8) History of percutaneous transluminal coronary angioplasty Status: Chronic Current Visit: No Code(s): Z98.61 - Coronary angioplasty status Comment: 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 Alexandr Mcclain (9) 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, stage 3 Status: Chronic Current Visit: No Code(s): N18.3 - 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, stage 3 (moderate) (10) Obstructive sleep apnea Status: Chronic Current Visit: No Code(s): G47.33 - Obstructive sleep apnea (adult) (pediatric) (11) TIA (transient ischemic attack) Status: Chronic Current Visit: No Code(s): G45.9 - Transient cerebral ischemic attack, unspecified (12) Unstable angina Status: Acute Current Visit: No Code(s): I20.0 - Unstable angina (13) Chest pain Status: Acute Current Visit: No Qualifiers: Code(s): R07.9 - Chest pain, unspecified (14) COPD (chronic obstructive pulmonary disease) Status: Chronic Current Visit: No Code(s): J44.9 - Chronic obstructive pulmonary disease, unspecified (15) 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.9) Status: Chronic Current Visit: Yes Code(s): E66.9 - Obesity, unspecified (16) MATTHEW (obstructive sleep apnea) Status: Chronic Current Visit: No Code(s): G47.33 - Obstructive sleep apnea (adult) (pediatric) (17) CKD (chronic kidney disease) stage 3, GFR 30-59 ml/min Status: Chronic Current Visit: No Code(s): N18.3 - 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, stage 3 (moderate) (18) CAD (coronary artery disease) Status: Chronic Current Visit: No Qualifiers: Code(s): I25.10 - Atherosclerotic heart disease of [place] coronary artery without angina pectoris Comment: 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 Patient has had angioplasty and drug-eluting stenting with a small 2.25 mm stent several its ago. The patient had aggressive in-stent restenosis requiring a re-attempt at angioplasty but was unsuccessful (19) Atherosclerotic heart disease [place] coronary artery w/angina pectoris Status: Chronic Current Visit: No Qualifiers: Code(s): I25.119 - Atherosclerotic heart disease of [place] coronary artery with unspecified angina pectoris Comment: 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 Procedure aborted. Pt then went to 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 PCI-POBA-Cx and Stent-Mid RCA x 2 Multi Link Mini Vision Rx Stent 4.0 x 28 mm 01/21/2006 (20) Type 2 diabetes mellitus without complications Status: Chronic Current Visit: No Qualifiers: Code(s): E11.9 - Type 2 diabetes mellitus without complications (21) Hypertension Status: Chronic Current Visit: No Qualifiers: Code(s): I10 - Essential (primary) hypertension (22) Hyperlipidemia Status: Chronic Current Visit: No Qualifiers: Code(s): E78.5 - Hyperlipidemia, unspecified (23) Old myocardial infarction Status: Chronic Current Visit: No Code(s): I25.2 - Old myocardial infarction (24) Obesity Status: Chronic Current Visit: No Code(s): E66.9 - Obesity, unspecified (25) History of coronary artery stent placement Status: Chronic Current Visit: No Code(s): Z95.5 - Presence of coronary angioplasty implant and graft Comment: Attempted PCI 08/03/2018: 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 Procedure aborted. No complications. 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 The patient states my legs swell up and the top of my feet. He also states as the day goes on they get worse, then they hurt. The patient sleeps on a flat surface at night. He claims to have an active lifestyle. However, he requires a cane for ambulation. His swelling is worse at the end of the day. He denies a history of thrombophlebitis in the past. 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 Patient has had angioplasty and drug-eluting stenting with a small 2.25 mm stent several its ago. The patient had aggressive in-stent restenosis requiring a re-attempt at angioplasty but was unsuccessful Atherosclerotic heart disease [place] coronary artery w/angina pectoris (Chronic) 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 Procedure aborted. Pt then went to 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 Procedure aborted. No complications. 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 Allergies/Adverse Reactions: Allergies No Known Allergies Allergy (Verified 12/29/18 11:05) Home Medications: Ambulatory Orders Medication Instructions Recorded Aspirin E.C. [Ecotrin] 81 mg PO DAILY@0800 01/21/17 clopidogrel 75 mg tablet 75 mg PO DAILY #90 tab 06/09/18 nitroglycerin 0.4 mg sublingual 0.4 mg SUBLINGUAL Q5-15M PRN #25 06/09/18 tablet tab pantoprazole 20 mg tablet,delayed 20 mg PO DAILY 08/26/18 release isosorbide mononitrate ER 60 mg 60 mg PO BID #180 tab 09/08/18 tablet,extended release 24 hr atorvastatin 40 mg tablet 40 mg PO QHS #90 tab 09/14/18 fluoxetine 40 mg capsule 40 mg PO DAILY 90 Days #90 cap 09/21/18 glimepiride 1 mg tablet 2 mg PO DAILY 90 Days #90 tab 09/21/18 mirtazapine 15 mg tablet 15 mg PO DAILY tab 09/21/18 metoprolol tartrate 100 mg tablet 50 mg PO BID #180 tab 10/21/18 amlodipine 2.5 mg tablet 2.5 mg PO DAILY #30 tab 10/28/18 spironolactone 25 mg tablet 25 mg PO DAILY #90 tab 10/28/18 furosemide 40 mg tablet 40 mg PO BID #180 tab 12/29/18 potassium chloride ER 20 mEq 40 meq PO BID #360 tab 12/30/18 tablet,extended release(part/cryst) - Family History Maternal - - Denies maternal cardiac history Paternal - - Father with a history of Parkinson's disease and prostate cancer Smoking Status: Former smoker Tobacco Use: Non-smoker Review of Systems Constitutional: Denies: Chills, Fever, Weight Change Eyes: Denies: Pain, Vision Change HEENT: Denies: Difficulty Hearing, Difficulty Swallowing, Sinus Congestion Cardiovascular: Denies: Chest Pain, Palpitations Respiratory: Denies: Cough, Shortness of Breath Gastrointestinal: Denies: Diarrhea, Nausea, Vomiting Genitourinary: Denies: Dysuria, Hematuria Endocrine: Denies: Heat/ Cold Intolerance, Polydipsia, Polyuria Hematologic/ Lymphatic: Denies: Easy Bruising, Easy Bleeding - Physical Exam Vital Signs Temp Pulse Resp BP 96.2 F L 50 L 16 135/80 H 01/31/19 10:29 01/31/19 10:29 01/31/19 10:29 01/31/19 10:29 General: Alert, Oriented x3, Cooperative, No apparent distress, Well developed, Well nourished HEENT: Atraumatic, PERRLA, EOMI, Normocephalic Oral: Moist Mucosa Neck: No JVD Lungs: Normal air movement Abdomen: Non-Distended Extremities: No clubbing, No cyanosis, No edema, No Calf Tenderness, - - There is no significant swelling or edema in the patient's lower extremities at this time. There are no significant skin changes. There is no sign of infection or cellulitis. There are no open wounds or ulcerations. Skin: No rashes, No breakdown Wound Measurements and Assessment WC - Nurse 1 - General Ulcer Measurement Start: 01/31/19 10:28 Freq: Status: Active Protocol: Activity Type Activity Date Activity User E-Sign Co-Sign Detail Recorded Client Recorded Date Recorded By Document 01/31/19 10:[address] [facility] [id number] 01/31/19 10:[address] [facility] 01/31/19 10:29 Wound Center Nurse 1 [Edema Assessment] -Lower Limb Edema Present Yes -Right Calf (cm) 37.6 -Right Ankle (cm) 24 -Left Calf (cm) 37.7 -Left Ankle (cm) 23.7 WC - Nurse 2 - General Ulcer CM Notes Start: 01/31/19 10:28 Freq: Status: Active Protocol: Activity Type Activity Date Activity User E-Sign Co-Sign Detail Recorded Client Recorded Date Recorded By Document 01/31/19 10:52 JF [id number] 01/31/19 10:53 JF 01/31/19 10:52 Pain Scale: 0-10 Numeric [Pain] -Is Patient Pain Free? Yes Musculoskeletal: No Muscle Wasting Neurological: Cranial nerves II-XII grossly intact, Neuro grossly intact Psych/Mental Status: Normal Affect, Appropriate, Alert and oriented to time, place, person, mood and affect Debridement Note Post-Debridement Measurements/Treatment WC - Nurse 2 - General Ulcer CM Notes Start: 01/31/19 10:28 Freq: Status: Active Protocol: Activity Type Activity Date Activity User E-Sign Co-Sign Detail Recorded Client Recorded Date Recorded By Document 01/31/19 10:52 [id number] 01/31/19 10:53 01/31/19 10:52 Pain Scale: 0-10 Numeric Is Patient Pain Free? Yes No debridement was completed today - There are no open wounds or ulcerations Assessment/Plan Active Problems (Last Reviewed 12/28/18 @ 10:43 by Maria R Bautista) Leg swelling (Chronic) Edema of both legs (Chronic) Leg pain (Chronic) Obesity (BMI 35.0-39.9 without comorbidity) (Chronic) 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.9) (Chronic) Assessment: This is a 73-year-old male with multiple medical problems. In general, it appears as though the patient suffers from dependent swelling and edema in his lower extremities. This is likely due to a variety of factors. In part, it may be related to his history of congestive heart failure, renal insufficiency, etc. It is also likely related to his habits, including prolonged idle sitting, lack of activity, morbid obesity, etc. The patient's laboratory studies have been reviewed, and are as follows: Sodium 142, potassium 4.5, chloride 112, BUN 17, creatinine 1.21, glucose 132, hemoglobin A1c 7.9, calcium 8.8. Plan: Lifestyle changes have been recommended. Patient has been advised to elevate his lower extremities as much as possible. Elevation is to be to heart level, or higher. This is to be accomplished as often as possible. He is to avoid idle standing and sitting. Activity has been encouraged. Weight loss has also been recommended. A noninvasive lower extremity arterial study reveals no evidence of significant arterial occlusive disease in the lower extremities. The patient has been using Tubigrip's to his lower extremities bilaterally. He has had some difficulty in obtaining his graduated compression stockings through [employer]. Graduated compression stockings of 20 to 30 mmHg compression have been ordered, but are yet to arrive. Patient has obtained a pair of graduated compression stockings of 20 to 30 mmHg compression [id number], but is uncertain as to whether these fit appropriately. He has been advised to return to the retail outlet where he purchase the stockings to be properly measured and fitted. As of this date, he has not yet been wearing the graduated compression stockings that have been recommended, but rather the Tubigrip's. We are to reschedule the patient for follow-up in approximately 3 weeks. It is anticipated that he will have obtained the proper graduated compression stockings by that time, and will have been wearing them on a daily basis. At his follow-up visit will be determined whether he is continuing to do well, and will likely be discharged at that time. Patient is to continue under the management of his primary care physician in terms of glycemic control and his other medical problems. Influenza vaccine was not administered today. The patient is not a smoker. He stands 5 feet 9 inches tall. He weighs 238 pounds. His BMI is 35.1, which places him in a class II category. Weight loss has been recommended, and collaboration with his primary care physician in this regard has been recommended.
[2019-02-21 10:21] VITALS: BP 148/105; PULSE 58; RESP 16; TEMP 36.6; BMI 34.4
--- NOTE | 2019-02-21 11:06 | PCM.WC.HP ---
(1) Leg swelling Status: Chronic Current Visit: Yes Code(s): M79.89 - Other specified soft tissue disorders (2) Edema of both legs Status: Chronic Current Visit: Yes Code(s): R60.0 - Localized edema (3) Leg pain Status: Chronic Current Visit: Yes Qualifiers: Laterality: bilateral Code(s): M79.606 - Pain in leg, unspecified (4) Sleep apnea Status: Acute Current Visit: No Code(s): G47.30 - Sleep apnea, unspecified (5) Obesity (BMI 35.0-39.9 without comorbidity) Status: Chronic Current Visit: Yes Code(s): E66.9 - Obesity, unspecified (6) History of melanoma Status: Chronic Current Visit: No Code(s): Z85.820 - Personal history of malignant melanoma of skin (7) CHF (congestive heart failure) Status: Chronic Current Visit: No Code(s): I50.9 - Heart failure, unspecified (8) History of percutaneous transluminal coronary angioplasty Status: Chronic Current Visit: No Code(s): Z98.61 - Coronary angioplasty status Comment: 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 Alexandr Mcclain (9) 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, stage 3 Status: Chronic Current Visit: No Code(s): N18.3 - 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, stage 3 (moderate) (10) Obstructive sleep apnea Status: Chronic Current Visit: No Code(s): G47.33 - Obstructive sleep apnea (adult) (pediatric) (11) TIA (transient ischemic attack) Status: Chronic Current Visit: No Code(s): G45.9 - Transient cerebral ischemic attack, unspecified (12) Unstable angina Status: Acute Current Visit: No Code(s): I20.0 - Unstable angina (13) Chest pain Status: Acute Current Visit: No Qualifiers: Code(s): R07.9 - Chest pain, unspecified (14) COPD (chronic obstructive pulmonary disease) Status: Chronic Current Visit: No Code(s): J44.9 - Chronic obstructive pulmonary disease, unspecified (15) 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.9) Status: Chronic Current Visit: Yes Code(s): E66.9 - Obesity, unspecified (16) MATTHEW (obstructive sleep apnea) Status: Chronic Current Visit: No Code(s): G47.33 - Obstructive sleep apnea (adult) (pediatric) (17) CKD (chronic kidney disease) stage 3, GFR 30-59 ml/min Status: Chronic Current Visit: No Code(s): N18.3 - 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, stage 3 (moderate) (18) CAD (coronary artery disease) Status: Chronic Current Visit: No Qualifiers: Code(s): I25.10 - Atherosclerotic heart disease of [place] coronary artery without angina pectoris Comment: 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 Patient has had angioplasty and drug-eluting stenting with a small 2.25 mm stent several its ago. The patient had aggressive in-stent restenosis requiring a re-attempt at angioplasty but was unsuccessful (19) Atherosclerotic heart disease [place] coronary artery w/angina pectoris Status: Chronic Current Visit: No Qualifiers: Code(s): I25.119 - Atherosclerotic heart disease of [place] coronary artery with unspecified angina pectoris Comment: 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 Procedure aborted. 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 PCI-POBA-Cx and Stent-Mid RCA x 2 Multi Link Mini Vision Rx Stent 4.0 x 28 mm 01/21/2006 (20) Type 2 diabetes mellitus without complications Status: Chronic Current Visit: No Qualifiers: Code(s): E11.9 - Type 2 diabetes mellitus without complications (21) Hypertension Status: Chronic Current Visit: No Qualifiers: Code(s): I10 - Essential (primary) hypertension (22) Hyperlipidemia Status: Chronic Current Visit: No Qualifiers: Code(s): E78.5 - Hyperlipidemia, unspecified (23) Old myocardial infarction Status: Chronic Current Visit: No Code(s): I25.2 - Old myocardial infarction (24) Obesity Status: Chronic Current Visit: No Code(s): E66.9 - Obesity, unspecified (25) History of coronary artery stent placement Status: Chronic Current Visit: No Code(s): Z95.5 - Presence of coronary angioplasty implant and graft Comment: Attempted PCI 08/03/2018: 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 Procedure aborted. No complications. 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 The patient states my legs swell up and the top of my feet. He also states as the day goes on they get worse, then they hurt. The patient sleeps on a flat surface at night. He claims to have an active lifestyle. However, he requires a cane for ambulation. His swelling is worse at the end of the day. He denies a history of thrombophlebitis in the past. 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 Patient has had angioplasty and drug-eluting stenting with a small 2.25 mm stent several its ago. The patient had aggressive in-stent restenosis requiring a re-attempt at angioplasty but was unsuccessful Atherosclerotic heart disease [place] coronary artery w/angina pectoris (Chronic) 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 Procedure aborted. 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 Procedure aborted. No complications. 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 Allergies/Adverse Reactions: Allergies No Known Allergies Allergy (Verified 12/29/18 11:05) Home Medications: Ambulatory Orders Medication Instructions Recorded Aspirin E.C. [Ecotrin] 81 mg PO DAILY@0800 01/21/17 clopidogrel 75 mg tablet 75 mg PO DAILY #90 tab 06/09/18 nitroglycerin 0.4 mg sublingual 0.4 mg SUBLINGUAL Q5-15M PRN #25 06/09/18 tablet tab pantoprazole 20 mg tablet,delayed 20 mg PO DAILY 08/26/18 release isosorbide mononitrate ER 60 mg 60 mg PO BID #180 tab 09/08/18 tablet,extended release 24 hr atorvastatin 40 mg tablet 40 mg PO QHS #90 tab 09/14/18 fluoxetine 40 mg capsule 40 mg PO DAILY 90 Days #90 cap 09/21/18 glimepiride 1 mg tablet 2 mg PO DAILY 90 Days #90 tab 09/21/18 mirtazapine 15 mg tablet 15 mg PO DAILY tab 09/21/18 metoprolol tartrate 100 mg tablet 50 mg PO BID #180 tab 10/21/18 amlodipine 2.5 mg tablet 2.5 mg PO DAILY #30 tab 10/28/18 spironolactone 25 mg tablet 25 mg PO DAILY #90 tab 10/28/18 furosemide 40 mg tablet 40 mg PO BID #180 tab 12/29/18 potassium chloride ER 20 mEq 40 meq PO BID #360 tab 12/30/18 tablet,extended release(part/cryst) - Family History Maternal - - Denies maternal cardiac history Paternal - - Father with a history of Parkinson's disease and prostate cancer Smoking Status: Former smoker Tobacco Use: Non-smoker Review of Systems Constitutional: Denies: Chills, Fever, Weight Change Eyes: Denies: Pain, Vision Change HEENT: Denies: Difficulty Hearing, Difficulty Swallowing, Sinus Congestion Cardiovascular: Denies: Chest Pain, Palpitations Respiratory: Denies: Cough, Shortness of Breath Gastrointestinal: Denies: Diarrhea, Nausea, Vomiting Genitourinary: Denies: Dysuria, Hematuria Endocrine: Denies: Heat/ Cold Intolerance, Polydipsia, Polyuria Hematologic/ Lymphatic: Denies: Easy Bruising, Easy Bleeding - Physical Exam Vital Signs Temp Pulse Resp BP 97.8 F 58 L 16 148/105 H 02/21/19 10:21 02/21/19 10:21 02/21/19 10:21 02/21/19 10:21 General: Alert, Oriented x3, Cooperative, No apparent distress, Well developed, Well nourished HEENT: Atraumatic, PERRLA, EOMI, Normocephalic Oral: Moist Mucosa Neck: No JVD Lungs: Normal air movement Abdomen: Non-Distended Extremities: No clubbing, No cyanosis, No Calf Tenderness, - - The swelling and edema in the patient's lower extremities appears to be markedly reduced. There is still a slight hint of swelling, though generally significantly improved. There are no open wounds or ulcerations. Circumference measurements are documented elsewhere. Skin: No rashes, No breakdown Wound Measurements and Assessment WC - Nurse 1 - General Ulcer Measurement Start: 01/31/19 10:28 Freq: Status: Active Protocol: Activity Type Activity Date Activity User E-Sign Co-Sign Detail Recorded Client Recorded Date Recorded By Document 02/21/19 10:21 [facility] [id number] 02/21/19 10:27 [facility] 02/21/19 10:21 Wound Center Nurse 1 [Edema Assessment] -Lower Limb Edema Present Yes -Right Calf (cm) 37.4 -Right Ankle (cm) 23.9 -Left Calf (cm) 38.1 -Left Ankle (cm) 23.9 WC - Nurse 2 - General Ulcer CM Notes Start: 01/31/19 10:28 Freq: Status: Active Protocol: Activity Type Activity Date Activity User E-Sign Co-Sign Detail Recorded Client Recorded Date Recorded By Document 02/21/19 10:59 AN [id number] 02/21/19 10:59 AN 02/21/19 10:59 Pain Scale: 0-10 Numeric [Pain] -Is Patient Pain Free? Yes Musculoskeletal: No Muscle Wasting Neurological: Cranial nerves II-XII grossly intact, Neuro grossly intact Psych/Mental Status: Normal Affect, Appropriate, Alert and oriented to time, place, person, mood and affect Debridement Note Post-Debridement Measurements/Treatment WC - Nurse 2 - General Ulcer CM Notes Start: 01/31/19 10:28 Freq: Status: Active Protocol: Activity Type Activity Date Activity User E-Sign Co-Sign Detail Recorded Client Recorded Date Recorded By Document 01/31/19 10:52 [id number] 01/31/19 10:53 Document 02/21/19 10:59 AN [id number] 02/21/19 10:59 AN 01/31/19 02/21/19 10:52 10:59 Pain Scale: 0-10 Numeric Is Patient Pain Free? Yes Yes No debridement was completed today - There are no open wounds or ulcerations Assessment/Plan Active Problems (Last Reviewed 12/28/18 @ 10:43 by Maria R Bautista) Leg swelling (Chronic) Edema of both legs (Chronic) Leg pain (Chronic) Obesity (BMI 35.0-39.9 without comorbidity) (Chronic) 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.9) (Chronic) Assessment: This is a 73-year-old male with multiple medical problems. In general, it appears as though the patient suffers from dependent swelling and edema in his lower extremities. This is likely due to a variety of factors. In part, it may be related to his history of congestive heart failure, renal insufficiency, etc. It is also likely related to his habits, including prolonged idle sitting, lack of activity, morbid obesity, etc. The patient's laboratory studies have been reviewed, and are as follows: Sodium 142, potassium 4.5, chloride 112, BUN 17, creatinine 1.21, glucose 132, hemoglobin A1c 7.9, calcium 8.8. Plan: Lifestyle changes have been recommended. Patient has been advised to elevate his lower extremities as much as possible. Elevation is to be to heart level, or higher. This is to be accomplished as often as possible. He is to avoid idle standing and sitting. Activity has been encouraged. Weight loss has also been recommended. A noninvasive lower extremity arterial study reveals no evidence of significant arterial occlusive disease in the lower extremities. The patient has been obtained his graduated compression stockings, and has been wearing them daily. They are knee-high, and of 20 to 30 mmHg compression. He is tolerating them well. The patient is to be discharged at this time, and will follow-up henceforth on an as-needed basis. He appears to understand the conservative treatment measures which have been recommended in reference to the management of his lower extremity swelling and edema. He has done well to date. Influenza vaccine was not administered today. The patient is not a smoker. He stands 5 feet 9 inches tall. He weighs 238 pounds. His BMI is 35.1, which places him in a class II category. Weight loss has been recommended, and collaboration with his primary care physician in this regard has been recommended.
== END 2019-03-02 23:59 ==
LOC: WC 10:30
PROVIDERS: Family Provider Family Medicine; PCP Family Medicine; Referring Provider Surgery; Visit Provider Surgery
DX: R60.0 Localized edema (principal); M79.89 Other specified soft tissue disorders; I50.9 Heart failure, unspecified; N18.3 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, stage 3 (moderate); G47.33 Obstructive sleep apnea (adult) (pediatric); J44.9 Chronic obstructive pulmonary disease, unspecified; I25.10 Atherosclerotic heart disease of native coronary artery without angina pectoris; E11.22 Type 2 diabetes mellitus with diabetic chronic kidney disease; I13.0 Hypertensive heart and chronic kidney disease with heart failure and stage 1 through stage 4 chronic kidney disease, or unspecified chronic kidney disease; E78.5 Hyperlipidemia, unspecified; I25.2 Old myocardial infarction; E66.9 Obesity, unspecified; Z68.35 Body mass index [BMI] 35.0-35.9, adult; Z87.891 Personal history of nicotine dependence; Z79.899 Other long term (current) drug therapy; Z79.02 Long term (current) use of antithrombotics/antiplatelets; Z79.82 Long term (current) use of aspirin; Z79.84 Long term (current) use of oral hypoglycemic drugs
CPT/HCPCS: 99212; G0463

== ENCOUNTER 2019-06-01 20:12 | Inpatient (IN) | payer MEDICARE, OTHER, SELFPAY ==
[2018-08-03 13:04] VITALS: BMI 19.8
[2019-04-06 11:05] VITALS: BMI 34.4
[2019-06-01 20:13] VITALS: BP 156/88; PULSE 65; RESP 19; TEMP 36.9; O2SAT 99; BMI 36.2
--- NOTE | 2019-06-01 20:17 | EKG12_ITS ---
Test Reason : Blood Pressure : / mmHG Vent. Rate : 060 BPM Atrial Rate : 056 BPM P-R Int : 000 ms QRS Dur : 088 ms QT Int : 452 ms P-R-T Axes : 000 066 008 degrees QTc Int : 452 ms Poor data quality, interpretation may be adversely affected Sinus rhythm Abnormal ECG When compared with ECG of 09-AUG-2018 00:18, Junctional rhythm has replaced Sinus rhythm Nonspecific T wave abnormality now evident in Inferior leads Confirmed by CONCHIS PALOMO, DELFINA ([id number]), medical transcription editor MARLENY SIMENTAL ([id number]) on 06/12/2019 1:16:25 PM Referred By: Confirmed By:BAM BALDERRAMA MD
--- NOTE | 2019-06-01 20:42 | EKG12_ITS ---
Test Reason : CP Blood Pressure : / mmHG Vent. Rate : 059 BPM Atrial Rate : 059 BPM P-R Int : 174 ms QRS Dur : 098 ms QT Int : 430 ms P-R-T Axes : 060 056 035 degrees QTc Int : 425 ms Sinus bradycardia Otherwise normal ECG Confirmed by RACH PALOMO, MUKUL ([id number]), movie editor SUKH PERALES ([id number]) on 06/06/2019 8:07:06 AM Referred By: CHRIS LUQUE Confirmed By:MUKUL LOYD MD
--- NOTE | 2019-06-01 20:44 | ED.VISSUMM ---
- ER Visit Summary Date of Service: 06/01/19 Chief Complaint: Chest pain History of Present Illness: The patient is a 73 M presenting with chest pain. Patient states this started around 5 PM. He had 8 out of 10 chest pain. He states the pain was intermittent over the next couple of hours. He called EMS. He was given nitro per EMS which resolved his pain. He also complains of dizziness and near syncope over the past month. He states he has fallen 4 times in the last month. He denies hitting his head or losing consciousness. Denies other complaints. Physical Examination: Vitals are stable. Patient is afebrile. Alert no acute distress. HEENT exam is unremarkable. Neck is supple. Lungs are clear and equal bilaterally. Heart is regular rate and rhythm. Abdomen is soft nontender nondistended. Extremities are unremarkable. Skin is warm and dry. No focal neurologic deficit. Remainder of exam is unremarkable. Emergency Department Course and Treatment: Patient was given aspirin on arrival. EKG is sinus bradycardia rate of 59 with no acute ischemic changes. Chest x-ray shows no acute process. CBC, chemistries unremarkable other than glucose 134, creatinine 1.55. Troponin is negative. Patient is chest pain-free in the ED. Will discuss with hospitalist for admission. Disposition: Admission Impression: Chest pain This note was generated with [employer] dictation software. It may contain incorrect words, spelling, and punctuation that were not noted in review of the chart prior to signing ED Disposition - Plan for ED Patient: Referrals: Victor M Luke DO [Primary Care Provider] -
--- NOTE | 2019-06-01 20:45 | RAD_ITS ---
STUDY: X-RAY CHEST REASON FOR EXAM: Male, 73 years old. Chest pain TECHNIQUE: Single frontal view of the chest. COMPARISON: August 08, 2018. FINDINGS: Cardiac silhouette unremarkable. Pulmonary vascularity unremarkable. Aorta atherosclerosis. No focal airspace opacities. Reidentified right lateral pleural thickening. Upper abdomen unremarkable. Osseous structures intact. Cervical spinal hardware is partially visualized. No pneumothorax. RAD/Chest 1 View (Portable) IMPRESSION: No acute cardiopulmonary findings Electronically Signed: Víctor Vargas, at 21:25 EST Tel , Service support ,
[2019-06-01 20:50] LABS: Absolute Lymphocyte Count 1.83 X10^3/uL (0.83-4.51); Absolute Neutrophil Count 5.4 X10^3/uL (2.0-7.7); Basophil# 0.03 X10^3/uL; Basophil% 0.4 % (0-1); Eosinophil# 0.08 X10^3/uL; Hematocrit 44.4 % (40-54); Hemoglobin 14.5 g/dL (13.0-16.5); Lymphocyte # 1.83 X10^3/ul (4.0); Lymphocyte % 21.7 % (19-41); Mean Corp Hgb Conc 32.7 g/dL (32-36); Mean Corpuscular Hgb 28.9 pg (27.0-32.0); Mean Corpuscular Volume 88.4 fL (80-94); Mean Platelet Vol. 12.5 fl (6.2-12.0); Monocyte# 1.04 X10^3/uL; Monocyte% 12.4 % (0-10); NRBC Flagged by Analyzer 0 % (0-5); Neutrophil # 5.41 X10^3/uL (2.7-7.7); Neutrophil % 64.1 % (47-70); Platelet Count 156 K/mm3 (150-450); RBC Distribution Width CV 13.2 % (11.6-14.6); RBC Distribution Width SD 42.5 fl (35.1-43.9); Red Blood Count 5.02 M/mm3 (4.6-6.2); White Blood Count 8.4 K/mm3 (4.4-11.0)
[2019-06-01 21:10] LABS: Anion Gap 6 (5-15); BUN 18 mg/dL (7-18); BUN/Creat Ratio 11.6 RATIO (10-20); Calcium,Total 8.8 mg/dL (8.5-10.1); Chloride 104 mmol/L (98-107); Creatinine, Serum 1.55 mg/dL (0.70-1.30); EST Glomerular Filtration Rate 47 mL/min (>60); Est Glom Filt Rate - Afr Amer 57 mL/min (>60); Estimated Creatinine Clearance 42.45 ml/min; Glucose 134 mg/dL (74-106); Potassium 3.7 mmol/L (3.5-5.1); Sodium Level 138 mmol/L (136-145)
[2019-06-01 22:13] VITALS: BP 126/73; PULSE 51; RESP 18; O2SAT 99
--- NOTE | 2019-06-01 23:05 | HP.PCM_ITS ---
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 Patient has had angioplasty and drug-eluting stenting with a small 2.25 mm stent several its ago. The patient had aggressive in-stent restenosis requiring a re-attempt at angioplasty but was unsuccessful (7) Type 2 diabetes mellitus without complications Status: Chronic Qualifiers: (8) Hypertension Status: Chronic Qualifiers: (9) Hyperlipidemia Status: Chronic Qualifiers: History of Present Illness Date of Admission: 06/01/19 Chief Complaint: Chest pain. The patient is a 73 year old M patient with past medical history as mentioned above presented to the emergency room because of chest pain. His symptoms started around 5 PM this evening with chest pain, started when he was driving to a game, left-sided chest pain, dull aching pain, goes up to 8 out of 10 in severity, not radiating, relieved with nitroglycerin that was given by the squad, associated with shortness of breath and dizziness and lasted longer than usual. He mentioned that this pain that started this evening is different from his usual chest pain that he has been getting over the last several months. He stated that earlier today, he had slight chest pain that lasted for a few seconds and he was dizzy and he fell. He denied loss of consciousness or syncope. 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 Patient mentioned that Dr. Olmstead was able to put the stent in later but I could not found that on discharge. In the emergency department, his vital signs are stable. His routine blood work was remarkable for creatinine of 1.55 which is chronic, otherwise normal. EKG revealed sinus bradycardia, heart rate is 59, normal CT interval, normal QRS, no acute ischemic changes. Troponin was negative. Chest x-ray showed no acute findings. Patient is being admitted for chest pain and probable unstable angina for evaluation and treatment. 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 Patient has had angioplasty and drug-eluting stenting with a small 2.25 mm stent several its ago. 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 Procedure aborted. 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 Procedure aborted. No complications. 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 Procedure aborted. 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 [Ecotrin] 81 mg PO DAILY@0800 01/21/17 clopidogrel 75 mg tablet 75 mg PO DAILY #90 tab 06/09/18 nitroglycerin 0.4 mg sublingual 0.4 mg SUBLINGUAL Q5-15M PRN #25 06/09/18 tablet tab pantoprazole 20 mg tablet,delayed 20 mg PO DAILY 08/26/18 release atorvastatin 40 mg tablet 40 mg PO QHS #90 tab 09/14/18 fluoxetine 40 mg capsule 40 mg PO DAILY 90 Days #90 cap 09/21/18 glimepiride 1 mg tablet 2 mg PO DAILY 90 Days #90 tab 09/21/18 mirtazapine 15 mg tablet 15 mg PO QHS tab 09/21/18 spironolactone 25 mg tablet 25 mg PO DAILY #90 tab 10/28/18 potassium chloride 20 mEq 40 meq PO BID #360 tab 12/30/18 tablet,extended release(part/cryst) metoprolol tartrate 50 mg tablet 50 mg PO BID #180 tab 03/24/19 amlodipine 2.5 mg tablet 2.5 mg PO DAILY #90 tab 03/31/19 furosemide 40 mg tablet 80 mg PO DAILY tab 04/06/19 Isosorbide Mononitrate [Imdur] 60 mg PO QHS 06/01/19 Isosorbide Mononitrate [Imdur] 90 mg PO BREAKFAST 06/01/19 Magnesium 1,200 mg PO DAILY 06/01/19 Vitamin B-12 1 tab PO DAILY 06/01/19 Vitamin D2 1 tab PO DAILY 06/01/19 Surgical History: Surgical History (Last Reviewed 04/06/19 @ 10:59 by Maria R Bautista) History of percutaneous transluminal coronary angioplasty (Chronic) Onset Date: 08/18/18 Z98.61 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 Procedure aborted. No complications. 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 Psychiatric History: Anxiety, Depression Lives: Spouse/ Significant Other Smoking Status: Former smoker Alcohol: None Drugs: None - *Family History Maternal History Items: - - Denies maternal cardiac history Paternal History Items: - - Father with a history of Parkinson's disease and prostate cancer Review of Systems Constitutional: Denies: Anorexia, Chills, Fever, Weakness Eyes: Denies: Blurred vision, Double vision, Drainage, Redness HEENT: Denies: Difficulty Hearing, Ear Pain, Eye Pain, Nasal bleeding, Sore Thr oat Cardiovascular: Reports: Chest Pain, Light Headedness. Denies: Chest Tightness, Edema, Heaviness, Palpitations, Paroxysmal Noc. Dyspnea, Syncope Respiratory: Denies: Cough, Pleuritic Pain, Shortness of Breath, Sputum production, Wheezing Gastrointestinal: Denies: Abdominal Pain, Constipation, Diarrhea, Nausea, Vomiting Genitourinary: Denies: Dysuria, Frequency, Hematuria Musculoskeletal: Denies: Arm Pain, Back Pain, Foot Pain Skin: Denies: Dryness, Rash Neurological: Denies: Balance problems, Double vision, Change in Speech, Slurred speech, Confusion, Headaches, Incoordination, Numbness Psychiatric: Reports: Anxiety, Depression Endocrine: Denies: Change in Body Habitus, Polydipsia, Polyuria VTE Information - Inpt Only VTE Present on Admission: No VTE Mechan Device Prophylaxis: None VTE Pharm Prophylaxis ordered?: Yes - Physical Exam Vitals/I&O's: Vital Signs Temp Pulse Resp BP Pulse Ox 98.4 F 51 L 18 126/73 H 99 06/01/19 20:13 06/01/19 22:13 06/01/19 22:13 06/01/19 22:13 06/01/19 22:13 Oxygen Flow Rate (L/min) 2 Oxygen Delivery Method Nasal Cannula Weight: 245 lb 9.519 oz Body Mass Index (BMI) 36.2 Finger Stick Blood Glucose 103 General: Alert, Oriented x3, Cooperative, No apparent distress HEENT: Atraumatic, PERRLA, EOMI, Normocephalic Oral: Moist Mucosa, No Gingival or Mucosal Lesions/ Ulcerations Neck: Supple, No JVD, Negative Carotid Bruits, Trachea Midline, Thyroid Normal Size and Texture Lungs: Clear to auscultation, Normal air movement, No rhonchi, No wheeze, No rales, Diminished Cardiovascular: Regular rate, Regular Rhythm, Normal S1, Normal S2, PMI Normal Abdomen: Bowel Sounds Present, Soft, Non Tender, Non-Distended, No Hepato- splenomegaly, Obese Extremities: No clubbing, No cyanosis, Edema - Trace edema. Skin: No rashes, No breakdown Lymphatic: No Cervical, Supraclavicular, or Inguinal Adenopathy Neurological: Cranial nerves II-XII grossly intact, Motor Exam 5/5 strength throughout Psych/Mental Status: Normal Affect, Appropriate, Alert and oriented to time, place, person, mood and affect Laboratory Results 06/01/19 20:21: WBC 8.4, RBC 5.02, Hgb 14.5, Hct 44.4, MCV 88.4, MCH 28.9, MCHC 32.7, RDW Std Deviation 42.5, RDW Coeff of Adrian 13.2, Plt Count 156, MPV 12.5 H, Immature Gran % (Auto) 0.400, Neut % (Auto) 64.1, Lymph % (Auto) 21.7, [place] % (Auto) 12.4 H, Eos % (Auto) 1.0, Baso % (Auto) 0.4, Absolute Neuts (auto) 5.4, Absolute Lymphs (auto) 1.83, Nucleated RBC % 0 06/01/19 20:21: Sodium 138, Potassium 3.7, Chloride 104, Carbon Dioxide 28.0, Anion Gap 6, BUN 18, Creatinine 1.55 H, Estim Creat Clear Calc 42.45, Est GFR (MDRD) Af Amer 57 L, Est GFR (MDRD) Non-Af 47 L, BUN/Creatinine Ratio 11.6, Glucose 134 H, Calcium 8.8, Troponin I < 0.015 Clinical Impression(s) from Imaging Studies Chest X-Ray 06/01/19 20:45 IMPRESSION: No acute cardiopulmonary findings Electronically Signed: Víctor Vargas, at 21:25 EST Tel , Service support , Assessment/Plan All Active Problems (Last Updated 06/01/19 @ 23:05 by Miriam Wilks MD) Chest pain (Acute) This is a 73 years old male patient presented to the emergency room because of chest pain and he is being admitted for evaluation. #1 chest pain/probable unstable angina: EKG without acute segment changes. Troponin is negative. Chest x-ray without acute findings. 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 According to the patient, he had a stent placed later by Dr. Olmstead. Patient received nitroglycerin in the ED and chest pain improved. His vital signs are stable. Plan: Admit to PCU for observation, cardiac monitoring, serial cardiac enzymes, repeat EKG tomorrow morning, cardiology consult, IV fluids, Tylenol PRN, nitroglycerin as needed, IV antiemetics as needed, continue aspirin, Plavix, statins, nitrates and metoprolol. #2 CAD status post stents: EKG and troponin was unremarkable as above. Plan as above, continue aspirin, statins, Plavix, nitrate and metoprolol. #3 COPD: Clinically stable, pulse ox is maintained on room air. Plan for albuterol PRN. #4 stage III chronic kidney disease: Baseline creatinine has been around 1.3 to 1.5 mg/dL. Admission creatinine is 1.55, stable at baseline. #5 type 2 diabetes mellitus: ADA diet, Accu-Cheks, insulin sliding scale, continue glimepiride. #6 hypertension: Blood pressure stable, continue Norvasc, nitrate and metoprolol. #7 chronic CHF, unspecified: Clinically stable, compensated. Continue Aldactone, metoprolol and nitrate, hold Lasix. #8 hyperlipidemia: Continue statins. #9 DVT prophylaxis: Subcu heparin. This note was generated with [employer] dictation software. It may contain incorrect words, spelling, and punctuation that were not noted in checking the note before signing. Code Visit OBSV E&M: 39683 Initial observation care L3
[2019-06-01 23:30] VITALS: BP 114/62; BP 120/59; PULSE 47; RESP 16; TEMP 36.8; O2SAT 96
[2019-06-01 23:39] VITALS: PULSE 51
[2019-06-01 23:40] VITALS: BMI 34.7
[2019-06-02] VITALS (15 sets, daily range): BP systolic 108–134; BP diastolic 57–75; PULSE 41–64; RESP 14–18; TEMP 36.5–36.9; O2SAT 91–97; BMI 34.8
[2019-06-02] MEDS: 0.9% Saline Lock 10 ML Syringe IV (00:24)
[2019-06-02] MEDS: 0.9% Normal Saline 1,000 ML 75 ML IV ×2 (00:24→14:00)
--- NOTE | 2019-06-02 00:29 | NURSING ---
Pt unsure of when he had his most recent PNA shot.
[2019-06-02 02:52] LABS: International Normalized Ratio 1.1; Prothrombin Time (Protime)PT. 14.2 SECONDS (11.7-14.9)
[2019-06-02 02:54] LABS: Anion Gap 5 (5-15); BUN 18 mg/dL (7-18); Calcium,Total 8.2 mg/dL (8.5-10.1); Chloride 107 mmol/L (98-107); Creatinine, Serum 1.38 mg/dL (0.70-1.30); EST Glomerular Filtration Rate 54 mL/min (>60); Est Glom Filt Rate - Afr Amer 65 mL/min (>60); Estimated Creatinine Clearance 47.67 ml/min; Glucose 156 mg/dL (74-106); Potassium 3.6 mmol/L (3.5-5.1); Sodium Level 139 mmol/L (136-145)
--- NOTE | 2019-06-02 05:55 | EKG12_ITS ---
Test Reason : CP ADMISSION Blood Pressure : / mmHG Vent. Rate : 050 BPM Atrial Rate : 050 BPM P-R Int : 178 ms QRS Dur : 088 ms QT Int : 472 ms P-R-T Axes : 065 071 057 degrees QTc Int : 430 ms Sinus bradycardia Otherwise normal ECG When compared with ECG of 09-AUG-2018 00:18, No significant change was found Confirmed by NAOMIE PALOMO, PARVEZ ([id number]), videotape editor VERONICA SCOTT ([id number]) on 06/06/2019 8:56:08 AM Referred By: EVE Confirmed By:PARVEZ AKBAR MD
[2019-06-02 08:55] LABS: Bedside Glucose 138 mg/dL (70-110)
[2019-06-02 11:20] LABS: Bedside Glucose 147 mg/dL (70-110)
--- NOTE | 2019-06-02 11:43 | CON.PCM_ITS ---
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 Patient has had angioplasty and drug-eluting stenting with a small 2.25 mm stent several its ago. The patient had aggressive in-stent restenosis requiring a re-attempt at angioplasty but was unsuccessful (3) History of coronary artery stent placement Status: Chronic Comment: Attempted PCI 08/03/2018: 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 Procedure aborted. No complications. 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 PCI-POBA-Cx and Stent-Mid RCA x 2 Multi Link Mini Vision Rx Stent 4.0 x 28 mm 01/21/2006 (4) Hyperlipidemia Status: Chronic Qualifiers: (5) Hypertension Status: Chronic Qualifiers: (6) Type 2 diabetes mellitus without complications Status: Chronic Qualifiers: (7) 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, stage 3 Status: Chronic (8) Obstructive sleep apnea Status: Chronic Reason for Consult Date of Consultation: 06/02/19 History of Present Illness: The patient is a 73 year old male with a past medical history of hyperlipidemia, hypertension, CAD, PCI, diabetes mellitus, chronic renal insufficiency, and obstructive sleep apnea who presents for evaluation of chest pain. He states that he had been doing reasonably well, having intermittent episodes of chest pain, until yesterday evening. He states yesterday evening he had chest discomfort that lasted for over an hour. He did not use his nitroglycerin sublingual at home. He elected to present to [facility] for further evaluation and care. He states he received nitroglycerin sublingual in the emergency department and had relief of his symptoms. He states he felt somewhat nauseated and was reported as appearing somewhat warm . He did not have emesis. He did not have any acute shortness of breath/dyspnea. He denies ongoing orthopnea or PND or peripheral pitting edema. There has been no near syncope or syncope. He was placed in the PCU for further evaluation and care. His cardiac enzymes were negative. His ECG demonstrated sinus bradycardia with possible inferior [place] pattern of indeterminate age cannot be excluded. His cardiac enzymes and ECG were repeated with no acute changes. He states he has been taking his medications as prescribed at home. However, based upon his recent outpatient cardiovascular visit with Dr. Olmstead from 04-06-19 it appears he was being treated with isosorbide mononitrate at 90 mg p.o. daily. According to the patient he has been taking 90 mg in the a.m. and 60 mg in the p.m. He has previously attempted additional antianginal therapy with Ranexa. He states that he had no benefit from that. He has undergone EECP therapy in the past which initially helped but on repeat ECP therapy did not help. He is undergone multiple diagnostic cardiac catheterizations and revascularization therapy at various medical centers including the [facility]. His most recent invasive evaluation was performed in August 2018 locally and subsequently at the [facility]. [] Past Medical History Allergies/Adverse Reactions: Allergies No Known Allergies Allergy (Verified 06/01/19 20:13) Home Medications: Ambulatory Orders Medication Instructions Recorded Aspirin E.C. [Ecotrin] 81 mg PO DAILY@0800 01/21/17 clopidogrel 75 mg tablet 75 mg PO DAILY #90 tab 06/09/18 nitroglycerin 0.4 mg sublingual 0.4 mg SUBLINGUAL Q5-15M PRN #25 06/09/18 tablet tab pantoprazole 20 mg tablet,delayed 20 mg PO DAILY 08/26/18 release atorvastatin 40 mg tablet 40 mg PO QHS #90 tab 09/14/18 fluoxetine 40 mg capsule 40 mg PO DAILY 90 Days #90 cap 09/21/18 glimepiride 1 mg tablet 2 mg PO DAILY 90 Days #90 tab 09/21/18 mirtazapine 15 mg tablet 15 mg PO QHS tab 09/21/18 spironolactone 25 mg tablet 25 mg PO DAILY #90 tab 10/28/18 potassium chloride 20 mEq 40 meq PO BID #360 tab 12/30/18 tablet,extended release(part/cryst) metoprolol tartrate 50 mg tablet 50 mg PO BID #180 tab 03/24/19 amlodipine 2.5 mg tablet 2.5 mg PO DAILY #90 tab 03/31/19 furosemide 40 mg tablet 80 mg PO DAILY tab 04/06/19 Isosorbide Mononitrate [Imdur] 60 mg PO QHS 06/01/19 Isosorbide Mononitrate [Imdur] 90 mg PO BREAKFAST 06/01/19 Magnesium 1,200 mg PO DAILY 06/01/19 Vitamin B-12 1 tab PO DAILY 06/01/19 Vitamin D2 1 tab PO DAILY 06/01/19 Past Medical History (Chronic Problems): Chronic Problems (Last Reviewed 04/06/19 @ 10:59 by Maria R Bautista) Obesity (BMI 35.0-39.9 without comorbidity) (Chronic) History of melanoma (Chronic) CHF (congestive heart failure) (Chronic) History of percutaneous transluminal coronary angioplasty (Chronic 08/18/18) 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 Patient has had angioplasty and drug-eluting stenting with a small 2.25 mm stent several its ago. The patient had aggressive in-stent restenosis requiring a re-attempt at angioplasty but was unsuccessful Atherosclerotic heart disease [place] coronary artery w/angina pectoris (Chronic) 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 Procedure aborted. 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 Procedure aborted. No complications. 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 Psychiatric History: Anxiety, Depression - *Family History Maternal History Items: - - Denies maternal cardiac history Paternal History Items: - - Father with a history of Parkinson's disease and prostate cancer Lives: Spouse/ Significant Other Smoking Status: Former smoker Alcohol: None Drugs: None Review of Systems - Review of Systems General: Denies: Fever, Night Sweats, Fatigue Cardiovascular: Reports: Chest Discomfort, Chest Discomfort at Rest, Chest Discomfort with Exertion. Denies: Shortness of Breath, Orthopnea, PND, Peripheral Edema, Palpitations, Lightheadedness, Dizziness, Near Syncope, Syncope Respiratory: Denies: Cough, Sputum Production, Hemoptysis Gastrointestinal: Reports: Nausea. Denies: Hematemesis, Hematochezia, Melena Genitourinary: Denies: Dysuria, Hematuria Skin: Denies: Rash Subjectve: Is a 73-year-old white male who appears to be resting comfortably at the moment in no acute distress. Objective: Vital Signs Temp Pulse Resp BP Pulse Ox 97.7 F L 64 16 111/67 96 06/02/19 08:07 06/02/19 11:00 06/02/19 08:07 06/02/19 08:07 06/02/19 08:07 Oxygen Flow Rate (L/min) 2 Oxygen Delivery Method Room Air Weight: 235 lb 7.259 oz Body Mass Index (BMI) 34.7 Finger Stick Blood Glucose 103 Intake and Output for Last 24 Hours 05/31/19 06/01/19 06/02/19 23:59 23:59 23:59 Intake Total 1117 / 1117 Output Total 400 / 400 425 / 425 Balance -390 / -390 692 / 692 General: Awake, Alert, Oriented x 3, Cooperative, No Acute Distress HEENT: Atraumatic, Normocephalic, PERRL, EOMI, Sclera Non Icteric Oral: Moist Mucosa Neck: Supple, Good ROM, No JVD Lungs: Clear to auscultation Cardiovascular: Regular Rhythm, Normal S1, Normal S2 Vascular: No Carotid Bruits Abdomen: Bowel Sounds Present, Soft, Non Tender Extremities: No edema Neurological: No Focal Motor or Sensory Deficit Psych/Mental Status: Appropriate 06/01/19 20:21: WBC 8.4, RBC 5.02, Hgb 14.5, Hct 44.4, MCV 88.4, MCH 28.9, MCHC 32.7, Plt Count 156, MPV 12.5 H, Immature Gran % (Auto) 0.400, Neut % (Auto) 64.1, Lymph % (Auto) 21.7, [place] % (Auto) 12.4 H, Eos % (Auto) 1.0, Baso % (Auto) 0.4, Absolute Neuts (auto) 5.4, Nucleated RBC % 0 06/01/19 20:21: Sodium 138, Potassium 3.7, Chloride 104, Carbon Dioxide 28.0, Anion Gap 6, BUN 18, Creatinine 1.55 H, Est GFR (MDRD) Af Amer 57 L, Est GFR (MDRD) Non-Af 47 L, BUN/Creatinine Ratio 11.6, Glucose 134 H, Calcium 8.8, Troponin I < 0.015 06/01/19 23:52: Troponin I < 0.015 06/02/19 02:30: Troponin I < 0.015 06/02/19 02:30: PT 14.2, INR 1.1 06/02/19 02:30: Sodium 139, Potassium 3.6, Chloride 107, Carbon Dioxide 27.0, Anion Gap 5, BUN 18, Creatinine 1.38 H, Est GFR (MDRD) Af Amer 65, Est GFR (MDRD) Non-Af 54 L, BUN/Creatinine Ratio 13.0, Glucose 156 H, Calcium 8.2 L Rhythm: Sinus rhythm EKG: As noted above ECHO: ?10?19: CCF: Left ventricle reported as normal with an LVEF of 65% with no significant valvular heart disease reported. Stress echocardiogram: 8-1-18 Interpretation Summary The study was technically difficult. Contrast injection was performed. The estimated ejection fraction is 65 %. Lateral-Basal: Mildly hypokinetic Mid-Lateral : Mildly hypokinetic Abnormal adequate treadmill echocardiogram. Positive for ischemia by echo criteria. Pt developed lightheadedness and left arm pain at peak exercise. Poor exercise capacity for age. Pt developed mild mid lateral/basal hypokinesis at peak exercise. HTN BP response to exercise. Final LVEF=55%. Cardiac Cath: CONCLUSIONS Normal LV size, wall motion,and systolic function Normal Left Ventricular systolic function Normal LV size, wall motion,and systolic function LVEF: by LV gram 65 % Normal Left Ventricular End Diastolic Pressure 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 Procedure aborted. No complications. RECOMMENDATIONS Referred for immediate PCI Highly recommend quitting all tobacco products Follow up with primary director visual Risk factor modification ASA Indefinitley Plavix for at least 12 months Routine post interventional care Refer for Outpatient Cardiac Rehab Manual sheath removal per protocol Increase Imdur to 60mg po bid. Refer to [facility] [place] for elective PCI of anomalous LCX. Pt will need long 55 cm sheath. Manual sheath removal. Pt did not respond to Ranexa in the past. CORONARY ANGIOGRAPHY DOMINANCE: Right Dominant LEFT HEART ASSESSMENT Left Ventricular Ejection Fraction: by LV Gram 65 % LVEDP: 13 mmHg Normal Left Ventricular End Diastolic Pressure Normal Left Ventricular systolic function Anterior Hypokinesis - Mild. Normal LV wall motion LEFT MAIN: Angiographically normal LEFT ANTERIOR DECENDING ARTERY: MID LAD: 40 % Stenosis CIRCUMFLEX ARTERY: PROX CIRC: Moderate luminal irregularities up to 50%, Instent restenosis 85 % RIGHT CORONARY ARTERY: MID RCA: Previously placed stent is patent RT PDA: Mid - Mild luminal irregularities less than 30% INTERVENTION INFORMATION LESION SITE: Circumflex (Proximal) Lesion Complexity: High/C, lesion at bifurcation: No, thrombus present: No, lesion length: 35 mm, culprit lesion: Yes Pre Stenosis: 85 % Pre intervention DEXTER flow: 3 PROCEDURE: Unsuccessful crossing of anomalous LCX off of RCA with 4 different wires; procedure aborted. Post Stenosis: 85 % Post intervention DEXTER flow: 3 PCI: Per the outpatient cardiovascular office note: August,: [facility] Main campus: PTCA/no stent of the anomalous LCx. CXR: No acute cardiopulmonary disease process appreciated: Please see official report Assessment/Plan 1. Chest pain The patient had recurrent chest pain. He states this episode was somewhat more prolonged than usual. He has been undergoing evaluation. His cardiac enzymes have been negative. His ECG has been negative. His cardiovascular history was reviewed and discussed with his primary director visual Dr. Olmstead. At the present time it is recommended that he continue conservative medical management with no immediate plans for repeat noninvasive or invasive study barring a change in his clinical course or other objective findings with respect to a change in his cardiac enzymes or his electrocardiogram. Thus at the present time the patient will increase his nitrate therapy to isosorbide mononitrate of 120 mg p.o. every morning and continue his isosorbide mononitrate at 60 mg p.o. every afternoon. He may need to increase his dose up to a maximal dose of 240 mg p.o. daily total. 2. CAD status post PCI The patient has a history of underlying CAD as previously described. He is undergone evaluation at multiple medical centers including the [facility]. At the present time he does not appear to have additional objective evidence based on cardiac enzymes or ECG changes of an acute coronary syndrome, etc. Thus he will continue conservative medical management by adjusting his medications. 3. Hyperlipidemia The patient should continue lipid-lowering medical therapy. 4. Hypertension The patient's blood pressure can be followed and his medications can be adjusted as deemed appropriate. 5. Diabetes mellitus The patient should continue to follow-up for his diabetes mellitus with his primary care physician. 6. Chronic renal insufficiency The patient does have an element of chronic renal insufficiency. This does need to be taken into consideration with procedures that involve IV contrast. 7. Obstructive sleep apnea The patient will need to continue to follow with his other physicians for his obstructive sleep apnea. Comment: The patient's case was discussed and reviewed with the patient as well as his primary director visual Dr. Elías Olmstead. This note was generated using a voice recognition system and there may be incorrect words, spelling or punctuation that were not noted when reviewing the office note prior to saving.
[2019-06-02] MEDS: Glimepiride 1 MG Tablet 2 MG PO (12:13)
[2019-06-02] MEDS: Aspirin E.C. 81 MG Tablet PO (12:13)
[2019-06-02] MEDS: Spironolactone 25 MG Tablet PO (12:14)
[2019-06-02] MEDS: Metoprolol Tartrate 50 MG Tablet PO ×2 (12:14→21:45)
[2019-06-02] MEDS: Clopidogrel Bisulfate 75 MG Tablet PO (12:15)
[2019-06-02] MEDS: amLODIPine 2.5 MG Tablet PO (12:15)
[2019-06-02] MEDS: Pantoprazole Sodium 20 MG Tablet PO (12:16)
[2019-06-02] MEDS: FLUoxetine 20 MG Capsule 40 MG PO (12:16)
[2019-06-02] MEDS: Isosorbide Mononitrate 30 MG Tablet PO (12:16)
--- NOTE | 2019-06-02 13:56 | PCM.PN.HOSP ---
Reason for Visit: Chest pain with history of unstable angina Objective: Patient still is having chest pain for 2 days. Chest pain got better with nitrate but he still has mild localized over the midsternal area. Denies nausea, vomiting, dizziness or shortness of breath. Vitals/I&O's: Vital Signs Temp Pulse Resp BP Pulse Ox 98.2 F 61 14 121/75 H 95 06/02/19 12:00 06/02/19 12:14 06/02/19 12:00 06/02/19 12:14 06/02/19 12:00 Oxygen Flow Rate (L/min) 2 Oxygen Delivery Method Room Air Weight: 235 lb 7.259 oz Body Mass Index (BMI) 34.7 Finger Stick Blood Glucose 103 Intake and Output for Last 24 Hours 05/31/19 06/01/19 06/02/19 23:59 23:59 23:59 Intake Total 1275.75 / 1275.75 Output Total 400 / 400 1125 / 1125 Balance -390 / -390 150.75 / 150.75 General: Alert, Oriented x3, Cooperative HEENT: Atraumatic, PERRLA, EOMI, Normocephalic Neck: Supple, No JVD, Negative Carotid Bruits Lungs: Clear to auscultation, No rhonchi, No wheeze, No rales, Diminished - Air entry diminished in bilateral lung bases Cardiovascular: Regular rate, Regular Rhythm, Normal S1, Normal S2, No murmurs Abdomen: Bowel Sounds Present, Soft, Non Tender, Non-Distended Extremities: Capillary Refill Less than 3 Seconds, Edema - 1+ ankle edema Skin: No rashes, No breakdown Musculoskeletal: No Tenderness to Palpation of Joints or Extremities, Arthritic Changes Lymphatic: No Cervical, Supraclavicular, or Inguinal Adenopathy Neurological: Cranial nerves II-XII grossly intact, Deep Tendon Reflexes 2+/4 and Symmetrical, Neuro grossly intact Psych/Mental Status: Normal Affect, Appropriate Laboratory Results 06/01/19 20:21: WBC 8.4, RBC 5.02, Hgb 14.5, Hct 44.4, MCV 88.4, MCH 28.9, MCHC 32.7, RDW Std Deviation 42.5, RDW Coeff of [place] 13.2, Plt Count 156, MPV 12.5 H, Immature Gran % (Auto) 0.400, Neut % (Auto) 64.1, Lymph % (Auto) 21.7, [place] % (Auto) 12.4 H, Eos % (Auto) 1.0, Baso % (Auto) 0.4, Absolute Neuts (auto) 5.4, Absolute Lymphs (auto) 1.83, Nucleated RBC % 0 06/01/19 20:21: Sodium 138, Potassium 3.7, Chloride 104, Carbon Dioxide 28.0, Anion Gap 6, BUN 18, Creatinine 1.55 H, Estim Creat Clear Calc 42.45, Est GFR (MDRD) Af Amer 57 L, Est GFR (MDRD) Non-Af 47 L, BUN/Creatinine Ratio 11.6, Glucose 134 H, Calcium 8.8, Troponin I < 0.015 06/01/19 23:52: Troponin I < 0.015 06/02/19 02:30: Troponin I < 0.015 06/02/19 02:30: PT 14.2, INR 1.1 06/02/19 02:30: Sodium 139, Potassium 3.6, Chloride 107, Carbon Dioxide 27.0, Anion Gap 5, BUN 18, Creatinine 1.38 H, Estim Creat Clear Calc 47.67, Est GFR (MDRD) Af Amer 65, Est GFR (MDRD) Non-Af 54 L, BUN/Creatinine Ratio 13.0, Glucose 156 H, Calcium 8.2 L 06/02/19 06:30: POC Glucose 138 H 06/02/19 11:17: POC Glucose 147 H Current Medications Acetaminophen (Tylenol) 650 mg PO Q6H PRN PRN PRN Reason: Pain Score 1-10/Temp > 100.7 F Amlodipine Besylate (Norvasc) 2.5 mg PO DAILY [facility] Last Admin: 06/02/19 12:15 Dose: 2.5 mg Documented by: Aspirin (Ecotrin) 81 mg PO DAILY@0800 [facility] Last Admin: 06/02/19 12:13 Dose: 81 mg Documented by: Atorvastatin Calcium (Lipitor) 40 mg PO QHS [facility] Clopidogrel Bisulfate (Plavix) 75 mg PO DAILY [facility] Last Admin: 06/02/19 12:15 Dose: 75 mg Documented by: Fluoxetine HCl (Prozac) 40 mg PO DAILY [facility] Last Admin: 06/02/19 12:16 Dose: 40 mg Documented by: Glimepiride (Amaryl) 2 mg PO DAILYCM [facility] Last Admin: 06/02/19 12:13 Dose: 2 mg Documented by: Glucagon () 1 mg IM .X1 PRN PRN Reason: Hypoglycemia Heparin Sodium (Porcine) (Heparin Na) 5,000 unit SC Q8 [facility] Last Admin: 06/02/19 10:57 Dose: Not Given Documented by: Sodium Chloride () 1,000 mls @ 75 mls/hr IV .[id number] [facility] Last Infusion: 06/02/19 12:07 Dose: 75 mls/hr Documented by: Dextrose (Dextrose 10%-Water) 250 mls @ 999 mls/hr IV .Q16M PRN; Protocol PRN Reason: HYPOGLYCEMIA Sodium Chloride () 250 mls @ 15 mls/hr IV .[id number] PRN PRN Reason: Saline Flush Sodium Chloride () 250 mls @ 15 mls/hr IV .[id number] PRN PRN Reason: Additional IVPB Infusion Insulin Human Lispro (Humalog Kwikpen (Bkc)) 0 unit SC ACHS [facility]; Protocol Last Admin: 06/02/19 12:07 Dose: Not Given Documented by: Isosorbide Mononitrate (Imdur) 60 mg PO QHS [facility] Isosorbide Mononitrate (Imdur) 120 mg PO BREAKFAST [facility] Metoprolol Tartrate (Lopressor (Beta Kale)) 50 mg PO BID [facility] Last Admin: 06/02/19 12:14 Dose: 50 mg Documented by: Mirtazapine (Remeron) 15 mg PO QHS [facility] Nitroglycerin (Nitrostat) 0.4 mg SUBLINGUAL Q5M PRN PRN Reason: CHEST PAIN Ondansetron HCl (Zofran) 4 mg IV Q8H PRN PRN PRN Reason: NAUSEA/VOMITING Pantoprazole Sodium (Protonix) 20 mg PO DAILY [facility] Last Admin: 06/02/19 12:16 Dose: 20 mg Documented by: Potassium Chloride (K-Dur) 40 meq PO BID [facility] Last Admin: 06/02/19 12:14 Dose: 40 meq Documented by: Sodium Chloride () 10 - 40 ml IV UD PRN PRN Reason: SALINE FLUSH Last Admin: 06/02/19 00:24 Dose: 10 ml Documented by: Spironolactone (Aldactone) 25 mg PO DAILY [facility] Last Admin: 06/02/19 12:14 Dose: 25 mg Documented by: STROKE Vital Signs/Narrative: Vital Signs Temp Pulse Resp BP Pulse Ox 06/02/19 12:14 61 121/75 H 06/02/19 12:00 98.2 F 61 14 121/75 H 95 06/02/19 11:00 64 Medical Necessity - Tobacco Use Smoking Status: Former smoker Assessment/Plan All Active Problems (Last Updated 06/01/19 @ 23:05 by Miriam Wilks MD) Chest pain (Acute) This is a 73 years old male patient with history of coronary artery disease status post stent is being admitted in PCU through ER for chest pain, suggestive of possible unstable angina #1 Chest pain most likely unstable angina: EKG shows sinus bradycardia with possible previous inferior [place]. Repeat EKG and troponin negative. Chest x-ray without acute findings. 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 He had PCI done in [facility]. Patient was seen by retail stock clerk. Isosorbide mononitrate 120 mg a.m. and 60 mg p.m. Continue to monitor as patient still has mild chest pain/pressure. On medical management, aspirin, Plavix, atorvastatin, metoprolol, isosorbide mononitrate, spironolactone #2 CAD status post stents: As mentioned above #3 COPD: Not in exacerbation. Continue albuterol as needed for shortness of breath. #4 stage III chronic kidney disease: Baseline creatinine has been around 1.3 to 1.5 mg/dL. Admitting creatinine 1.5, most recent 1.38 #5 type 2 diabetes mellitus: ADA diet, Accu-Cheks, insulin sliding scale, continue glimepiride. #6 hypertension: BP normotensive. Continue Norvasc, nitrate and metoprolol. #7 chronic CHF: Most recent echo in August 2018 reported as EF 65% with mild concentric LVH. Grade 1 diastolic dysfunction. Lasix is on hold. On spironolactone #8 hyperlipidemia: Continue statins. #9 DVT prophylaxis: Subcu heparin. Total time of the visit including total time spent in counseling or coordination of care, (more than 50% of the total time, spent in obtaining medical information from nurses and other ancillary care providers), discussing with patient and consultants, review of labs and imaging is 30 minutes Code Visit Inpatient E&M: 76601 Subs Hosp L2
[2019-06-02] MEDS: Heparin Injection (Vial) 5,000 UNIT/ML VIAL 5000 UNIT SC ×2 (14:43→21:33)
--- NOTE | 2019-06-02 15:18 | CASEMGMT ---
RN CM Assessment Note Presentation: CHF, CKD stage 3, MATTHEW Intro role of CM and purpose of RN CM assessment to patient and his . Demographics, PCP and Pharmacy verified. RN CM discussed PT/OT notes and recommendation for further therapy on dc. Pt and declined, stating pt is close to baseline. RN CM discussed if pt returns home and feels therapy would be beneficial, he can call PCP, explain PT was recommended during hospital stay and order can be faxed to [facility]. No other care needs identified on dc. PCP: Dr. Victor M Luke Specialists: Dr. Palacios Preferred Pharmacy: [facility] Insurance: [employer] Prescription Benefit: yes LNOK: Jennie Rico, Living Arrangements: Transportation: drives or pt drives DME: walker, cane HHC/SNF: not recently. Pt declining HHC for dc. Patient DC goals: home with assist for DC PLAN: Home on discharge. [place] MINOR RN ACM
[2019-06-02 16:11] LABS: Bedside Glucose 170 mg/dL (70-110)
[2019-06-02] MEDS: Insulin Lispro 100 UNIT/ML INSULN.PEN SC ×2 (16:54→21:45)
[2019-06-02] MEDS: Isosorbide Mononitrate 60 MG Tablet PO (21:33)
[2019-06-02] MEDS: Mirtazapine 15 MG Tablet PO (21:36)
[2019-06-02] MEDS: Atorvastatin Calcium 40 MG Tablet PO (21:39)
[2019-06-02 21:56] LABS: Bedside Glucose 174 mg/dL (70-110)
[2019-06-03] VITALS (13 sets, daily range): BP systolic 106–130; BP diastolic 50–70; PULSE 40–58; RESP 16–18; TEMP 36.6–37.2; O2SAT 95–96
[2019-06-03] MEDS: 0.9% Normal Saline 1,000 ML 75 ML IV (00:40)
[2019-06-03] MEDS: Heparin Injection (Vial) 5,000 UNIT/ML VIAL 5000 UNIT SC ×3 (05:52→22:13)
[2019-06-03 06:46] LABS: Bedside Glucose 107 mg/dL (70-110)
[2019-06-03] MEDS: Aspirin E.C. 81 MG Tablet PO (08:36)
[2019-06-03] MEDS: amLODIPine 2.5 MG Tablet PO (08:40)
[2019-06-03] MEDS: FLUoxetine 20 MG Capsule 40 MG PO (08:40)
[2019-06-03] MEDS: Pantoprazole Sodium 20 MG Tablet PO (08:40)
[2019-06-03] MEDS: Clopidogrel Bisulfate 75 MG Tablet PO (08:40)
[2019-06-03] MEDS: Glimepiride 1 MG Tablet 2 MG PO (08:41)
[2019-06-03] MEDS: Spironolactone 25 MG Tablet PO (08:43)
[2019-06-03 09:50] LABS: Absolute Lymphocyte Count 1.45 X10^3/uL (0.83-4.51); Absolute Neutrophil Count 3.9 X10^3/uL (2.0-7.7); Basophil# 0.02 X10^3/uL; Basophil% 0.3 % (0-1); Eosinophil# 0.13 X10^3/uL; Eosinophils% 2.1 % (0-5); Hematocrit 42.9 % (40-54); Hemoglobin 13.8 g/dL (13.0-16.5); Lymphocyte # 1.45 X10^3/ul (4.0); Lymphocyte % 23.5 % (19-41); Mean Corp Hgb Conc 32.2 g/dL (32-36); Mean Corpuscular Hgb 28.8 pg (27.0-32.0); Mean Corpuscular Volume 89.6 fL (80-94); Mean Platelet Vol. 12.1 fl (6.2-12.0); Monocyte# 0.67 X10^3/uL; Monocyte% 10.8 % (0-10); NRBC Flagged by Analyzer 0 % (0-5); Neutrophil # 3.88 X10^3/uL (2.7-7.7); Neutrophil % 62.8 % (47-70); Platelet Count 129 K/mm3 (150-450); RBC Distribution Width CV 13.2 % (11.6-14.6); RBC Distribution Width SD 43.8 fl (35.1-43.9); Red Blood Count 4.79 M/mm3 (4.6-6.2); White Blood Count 6.2 K/mm3 (4.4-11.0)
[2019-06-03 10:03] LABS: Anion Gap 4 (5-15); BUN 15 mg/dL (7-18); BUN/Creat Ratio 12.6 RATIO (10-20); Calcium,Total 8.6 mg/dL (8.5-10.1); Chloride 112 mmol/L (98-107); Creatinine, Serum 1.19 mg/dL (0.70-1.30); EST Glomerular Filtration Rate 64 mL/min (>60); Est Glom Filt Rate - Afr Amer 77 mL/min (>60); Estimated Creatinine Clearance 55.29 ml/min; Glucose 149 mg/dL (74-106); Magnesium 2.2 mg/dL (1.6-2.6); Potassium 4.7 mmol/L (3.5-5.1); Sodium Level 141 mmol/L (136-145)
--- NOTE | 2019-06-03 10:39 | PN_ITS ---
Reason for Visit: Chest pain. Today's feeling dizzy, very weak and low energy level, feeling like near fall. Heart rate was in 40s last night and today Vitals/I&O's: Vital Signs Temp Pulse Resp BP Pulse Ox 98.0 F 44 L 16 120/59 L 95 06/03/19 08:35 06/03/19 10:37 06/03/19 08:35 06/03/19 08:35 06/03/19 08:35 Oxygen Flow Rate (L/min) 2 Oxygen Delivery Method Room Air Weight: 235 lb 7.259 oz Body Mass Index (BMI) 34.7 Finger Stick Blood Glucose 103 Intake and Output for Last 24 Hours 06/01/19 06/02/19 06/03/19 23:59 23:59 23:59 Intake Total 2034.50 / 2274.50 842.5 / 842.5 Output Total 400 / 400 1425 / 2425 1600 / 1600 Balance -390 / -390 609.50 / -150.50 -757.5 / -757.5 General: Alert, Oriented x3, Cooperative HEENT: Atraumatic, PERRLA, EOMI, Normocephalic Neck: Supple, No JVD, Negative Carotid Bruits Lungs: Clear to auscultation, No rhonchi, No wheeze, No rales, Diminished Cardiovascular: Regular Rhythm, Normal S1, Normal S2, No murmurs, Bradycardic - Heart rate in 40s on quality assurance monitor chassis. Abdomen: Bowel Sounds Present, Soft, Non Tender, Non-Distended, No Hepato-splen omegaly Extremities: No edema, Capillary Refill Less than 3 Seconds Skin: No rashes, No breakdown Musculoskeletal: No Tenderness to Palpation of Joints or Extremities, Arthritic Changes Neurological: Cranial nerves II-XII grossly intact, Deep Tendon Reflexes 2+/4 and Symmetrical, Neuro grossly intact Psych/Mental Status: Normal Affect, Appropriate Laboratory Results 06/02/19 11:17: POC Glucose 147 H 06/02/19 16:03: POC Glucose 170 H 06/02/19 21:35: POC Glucose 174 H 06/03/19 06:38: POC Glucose 107 06/03/19 09:22: WBC 6.2, RBC 4.79, Hgb 13.8, Hct 42.9, MCV 89.6, MCH 28.8, MCHC 32.2, RDW Std Deviation 43.8, RDW Coeff of Adrian 13.2, Plt Count 129 L, MPV 12.1 H , Immature Gran % (Auto) 0.500, Neut % (Auto) 62.8, Lymph % (Auto) 23.5, Banks % (Auto) 10.8 H, Eos % (Auto) 2.1, Baso % (Auto) 0.3, Absolute Neuts (auto) 3.9, Absolute Lymphs (auto) 1.45, Nucleated RBC % 0 06/03/19 09:22: Sodium 141, Potassium 4.7, Chloride 112 H, Carbon Dioxide 25.0, Anion Gap 4 L, BUN 15, Creatinine 1.19, Estim Creat Clear Calc 55.29, Est GFR (MDRD) Af Amer 77, Est GFR (MDRD) Non-Af 64, BUN/Creatinine Ratio 12.6, Glucose 149 H, Calcium 8.6, Magnesium 2.2 Current Medications Acetaminophen (Tylenol) 650 mg PO Q6H PRN PRN PRN Reason: Pain Score 1-10/Temp > 100.7 F Amlodipine Besylate (Norvasc) 2.5 mg PO DAILY [facility] Last Admin: 06/03/19 08:40 Dose: 2.5 mg Documented by: Aspirin (Ecotrin) 81 mg PO DAILY@0800 [facility] Last Admin: 06/03/19 08:36 Dose: 81 mg Documented by: Atorvastatin Calcium (Lipitor) 40 mg PO QHS [facility] Last Admin: 06/02/19 21:39 Dose: 40 mg Documented by: Clopidogrel Bisulfate (Plavix) 75 mg PO DAILY [facility] Last Admin: 06/03/19 08:40 Dose: 75 mg Documented by: Fluoxetine HCl (Prozac) 40 mg PO DAILY [facility] Last Admin: 06/03/19 08:40 Dose: 40 mg Documented by: [facility] Admin: 06/03/19 08:41 Dose: 2 mg Documented by: Glucagon () 1 mg IM .X1 PRN PRN Reason: Hypoglycemia Heparin Sodium (Porcine) (Heparin Na) 5,000 unit SC Q8 [facility] Last Admin: 06/03/19 05:52 Dose: 5,000 unit Documented by: Sodium Chloride () 1,000 mls @ 75 mls/hr IV .[id number] [facility] Last Admin: 06/03/19 00:40 Dose: 75 mls/hr Documented by: Dextrose (Dextrose 10%-Water) 250 mls @ 999 mls/hr IV .Q16M PRN; Protocol PRN Reason: HYPOGLYCEMIA Sodium Chloride () 250 mls @ 15 mls/hr IV .[id number] PRN PRN Reason: Saline Flush Sodium Chloride () 250 mls @ 15 mls/hr IV .[id number] PRN PRN Reason: Additional IVPB Infusion Insulin Human Lispro (Humalog Kwikpen (Bkc)) 0 unit SC ACHS [facility]; Protocol Last Admin: 06/03/19 06:47 Dose: Not Given Documented by: Isosorbide Mononitrate (Imdur) 60 mg PO QHS [facility] Last Admin: 06/02/19 21:33 Dose: 60 mg Documented by: Isosorbide Mononitrate (Imdur) 60 mg PO BREAKFAST [facility] Metoprolol Tartrate (Lopressor (Beta Kale)) 25 mg PO BID [facility] Last Admin: 06/03/19 10:37 Dose: Not Given Documented by: Mirtazapine (Remeron) 15 mg PO QHS [facility] Last Admin: 06/02/19 21:36 Dose: 15 mg Documented by: Nitroglycerin (Nitrostat) 0.4 mg SUBLINGUAL Q5M PRN PRN Reason: CHEST PAIN Ondansetron HCl (Zofran) 4 mg IV Q8H PRN PRN PRN Reason: NAUSEA/VOMITING Pantoprazole Sodium (Protonix) 20 mg PO DAILY [facility] Last Admin: 06/03/19 08:40 Dose: 20 mg Documented by: Potassium Chloride (K-Dur) 40 meq PO BID [facility] Last Admin: 06/03/19 08:41 Dose: 40 meq Documented by: Sodium Chloride () 10 - 40 ml IV UD PRN PRN Reason: SALINE FLUSH Last Admin: 06/02/19 00:24 Dose: 10 ml Documented by: Spironolactone (Aldactone) 25 mg PO DAILY [facility] Last Admin: 06/03/19 08:43 Dose: 25 mg Documented by: STROKE Vital Signs/Narrative: Vital Signs Temp Pulse Resp BP Pulse Ox 06/03/19 10:37 44 L 06/03/19 08:35 98.0 F 44 L 16 120/59 L 95 06/03/19 07:52 95 06/03/19 07:03 40 L Medical Necessity - Tobacco Use Smoking Status: Former smoker Assessment/Plan All Active Problems (Last Updated 06/01/19 @ 23:05 by Miriam Wilks MD) Chest pain (Acute) This is a 73 years old male patient with history of coronary artery disease status post stent is being admitted in PCU through ER for chest pain, suggestive of possible unstable angina #1 Chest pain most likely unstable angina: EKG shows sinus bradycardia with possible previous inferior [place]. Repeat EKG and troponin negative. Chest x-ray without acute findings. 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 He had PCI done in [facility]. Patient was seen by assigner. Isosorbide mononitrate 120 mg a.m. and 60 mg p.m. Continue to monitor as patient still has mild chest pain/pressure. On medical management, aspirin, Plavix, atorvastatin, metoprolol, isosorbide mononitrate, spironolactone 2/: Patient chest pain is controlled but having side effect of isosorbide mononitrate. Imdur decreased to 60 mg a.m. and at bedtime daily with holding parameters. Hold metoprolol for heart rate less than 60/min. Medications reviewed. Hypokalemia, potassium being replaced. Magnesium level normal. Phosphorus normal. #2 CAD status post stents: As mentioned above #3 COPD: Not in exacerbation. Continue albuterol as needed for shortness of breath. #4 stage III chronic kidney disease: Baseline creatinine has been around 1.3 to 1.5 mg/dL. Admitting creatinine 1.5, most recent 1.38 #5 type 2 diabetes mellitus: ADA diet, Accu-Cheks, insulin sliding scale, continue glimepiride. #6 hypertension: Blood pressure was on low normal range, systolic in 100s. Continue Norvasc, nitrate and metoprolol. #7 chronic CHF: Most recent echo in August 2018 reported as EF 65% with mild concentric LVH. Grade 1 diastolic dysfunction. Lasix is on hold. On spironolactone #8 hyperlipidemia: Continue statins. #9 DVT prophylaxis: Subcu heparin. Total time of the visit including total time spent in counseling or coordination of care, (more than 50% of the total time, spent in obtaining medical information from nurses and other ancillary care providers), discussing with patient and consultants, review of labs and imaging is 30 minutes Code Visit Inpatient E&M: 63029 Subs Hosp L2
[2019-06-03 11:30] LABS: Bedside Glucose 210 mg/dL (70-110)
--- NOTE | 2019-06-03 11:42 | PN.CARD_ITS ---
Subjectve: The patient is awake and alert. He has had no new acute chest discomfort/complaints. He noted after adjustment of his medications he felt somewhat dizzy and lightheaded upon being up and ambulating. Objective: Vital Signs Temp Pulse Resp BP Pulse Ox 98.0 F 44 L 16 120/59 L 95 06/03/19 08:35 06/03/19 10:37 06/03/19 08:35 06/03/19 08:35 06/03/19 08:35 Oxygen Flow Rate (L/min) 2 Oxygen Delivery Method Room Air Weight: 235 lb 7.259 oz Body Mass Index (BMI) 34.7 Finger Stick Blood Glucose 103 Intake and Output for Last 24 Hours 06/01/19 06/02/19 06/03/19 23:59 23:59 23:59 Intake Total 2034.50 / 2274.50 842.5 / 842.5 Output Total 400 / 400 1425 / 2425 1600 / 1600 Balance -390 / -390 609.50 / -150.50 -757.5 / -757.5 General: Awake, Alert, Oriented x 3, Cooperative, No Acute Distress HEENT: Atraumatic, Normocephalic, PERRL, EOMI, Sclera Non Icteric Oral: Moist Mucosa Neck: Supple, Good ROM, No JVD Lungs: Clear to auscultation Cardiovascular: Regular Rhythm, Normal S1, Normal S2 Abdomen: Bowel Sounds Present, Soft, Non Tender Extremities: No edema Psych/Mental Status: Appropriate 06/03/19 09:22: WBC 6.2, RBC 4.79, Hgb 13.8, Hct 42.9, MCV 89.6, MCH 28.8, MCHC 32.2, Plt Count 129 L, MPV 12.1 H, Immature Gran % (Auto) 0.500, Neut % (Auto) 62.8, Lymph % (Auto) 23.5, [place] % (Auto) 10.8 H, Eos % (Auto) 2.1, Baso % (Auto) 0.3, Absolute Neuts (auto) 3.9, Nucleated RBC % 0 06/03/19 09:22: Sodium 141, Potassium 4.7, Chloride 112 H, Carbon Dioxide 25.0, Anion Gap 4 L, BUN 15, Creatinine 1.19, Est GFR (MDRD) Af Amer 77, Est GFR (MDRD) Non-Af 64, BUN/Creatinine Ratio 12.6, Glucose 149 H, Calcium 8.6, Magnesium 2.2 Rhythm: Sinus rhythm/sinus bradycardia Medical Necessity - Tobacco Use Smoking Status: Former smoker Assessment/Plan 1. Chest pain The patient had recurrent chest pain. He states this episode was somewhat more prolonged than usual. He has been undergoing evaluation. His cardiac enzymes have been negative. His ECG has been negative. His cardiovascular history was reviewed and discussed with his primary solution advisor Dr. Olmstead. At the present time it is recommended that he continue conservative medical management with no immediate plans for repeat noninvasive or invasive study barring a change in his clinical course or other objective fin dings with respect to a change in his cardiac enzymes or his electrocardiogram. An attempt has been made to adjust his nitrate dose. However he did not appear to tolerate increased nitrate dose such as increasing his a.m. dose to 120 mg daily and continuing his 60 mg nightly dose. He stated he felt somewhat more dizzy and lightheaded. Thus at the present time his nitrates have been readjusted. His isosorbide mononitrate is now readjusted to 60 mg twice daily. Also, based upon concerns of his sinus bradycardia and symptoms his beta-jeffrey dose is being adjusted. 2. CAD status post PCI The patient has a history of underlying CAD as previously described. He is undergone evaluation at multiple medical centers including the [facility]. At the present time he does not appear to have additional objective evidence based on cardiac enzymes or ECG changes of an acute coronary syndrome, etc. Thus he will continue conservative medical management by adjusting his medications. 3. Hyperlipidemia The patient should continue lipid-lowering medical therapy. 4. Hypertension The patient's blood pressure can be followed and his medications can be adjusted as deemed appropriate. 5. Diabetes mellitus The patient should continue to follow-up for his diabetes mellitus with his primary care physician. 6. Chronic renal insufficiency The patient does have an element of chronic renal insufficiency. This does need to be taken into consideration with procedures that involve IV contrast. 7. Obstructive sleep apnea The patient will need to continue to follow with his other physicians for his obstructive sleep apnea. Comment: The patient's case was discussed and reviewed with the patient and his family members present, and Dr. Sexton. This note was generated using a voice recognition system and there may be incorrect words, spelling or punctuation that were not noted when reviewing the office note prior to saving.
[2019-06-03] MEDS: Insulin Lispro 100 UNIT/ML INSULN.PEN SC ×2 (12:49→22:14)
[2019-06-03] MEDS: Magnesium Oxide 400 MG Tablet PO ×2 (14:23→17:12)
[2019-06-03 16:11] LABS: Bedside Glucose 123 mg/dL (70-110)
[2019-06-03] MEDS: Isosorbide Mononitrate 60 MG Tablet PO (22:12)
[2019-06-03] MEDS: Atorvastatin Calcium 40 MG Tablet PO (22:13)
[2019-06-03] MEDS: Mirtazapine 15 MG Tablet PO (22:13)
[2019-06-03] MEDS: 0.9% Saline Lock 10 ML Syringe IV (22:21)
[2019-06-03 22:35] LABS: Bedside Glucose 194 mg/dL (70-110)
[2019-06-04 02:58] VITALS: PULSE 56
[2019-06-04 04:15] VITALS: BP 110/50; PULSE 63; RESP 18; TEMP 36.6; O2SAT 96
[2019-06-04] MEDS: Heparin Injection (Vial) 5,000 UNIT/ML VIAL 5000 UNIT SC (06:39)
[2019-06-04 06:45] LABS: Bedside Glucose 140 mg/dL (70-110)
[2019-06-04 07:04] VITALS: PULSE 50
[2019-06-04 07:23] VITALS: O2SAT 95
[2019-06-04 08:35] VITALS: BP 134/75; PULSE 56; RESP 16; TEMP 36.8; O2SAT 95
[2019-06-04] MEDS: Magnesium Oxide 400 MG Tablet PO (08:38)
[2019-06-04] MEDS: Aspirin E.C. 81 MG Tablet PO (08:38)
[2019-06-04] MEDS: Isosorbide Mononitrate 60 MG Tablet PO (08:38)
[2019-06-04] MEDS: Glimepiride 1 MG Tablet 2 MG PO (08:38)
[2019-06-04 08:41] VITALS: PULSE 56
[2019-06-04] MEDS: amLODIPine 2.5 MG Tablet PO (08:41)
[2019-06-04] MEDS: Pantoprazole Sodium 20 MG Tablet PO (08:42)
[2019-06-04] MEDS: FLUoxetine 20 MG Capsule 40 MG PO (08:42)
[2019-06-04] MEDS: Clopidogrel Bisulfate 75 MG Tablet PO (08:42)
[2019-06-04] MEDS: Cyanocobalamin 500 MCG Tablet 1000 MCG PO (09:24)
[2019-06-04] MEDS: Spironolactone 25 MG Tablet PO (09:26)
--- NOTE | 2019-06-04 09:43 | DCINST_ITS ---
Additional Instructions: Space out isosorbide mononitrate, Lasix and amlodipine in a gap of 2 to 3 hours each to avoid hypotension, dizziness and near syncope. Allergies/Adverse Reactions: Allergies No Known Allergies Allergy (Verified 06/01/19 20:13) Medications to take at Discharge Aspirin E.C. [Ecotrin] 81 mg PO DAILY@0800 01/21/17 clopidogrel 75 mg tablet 75 mg PO DAILY #90 tab 06/09/18 nitroglycerin 0.4 mg sublingual tablet 0.4 mg SUBLINGUAL Q5-15M PRN #25 tab 06/09/18 pantoprazole 20 mg tablet,delayed release 20 mg PO DAILY 08/26/18 atorvastatin 40 mg tablet 40 mg PO QHS #90 tab 09/14/18 fluoxetine 40 mg capsule 40 mg PO DAILY 90 Days #90 cap 09/21/18 glimepiride 1 mg tablet 2 mg PO DAILY 90 Days #90 tab 09/21/18 mirtazapine 15 mg tablet 15 mg PO QHS tab 09/21/18 spironolactone 25 mg tablet 25 mg PO DAILY #90 tab 10/28/18 potassium chloride 20 mEq tablet,extended release(part/cryst) 40 meq PO BID #360 tab 12/30/18 metoprolol tartrate 50 mg tablet 50 mg PO BID #180 tab 03/24/19 amlodipine 2.5 mg tablet 2.5 mg PO DAILY #90 tab 03/31/19 Isosorbide Mononitrate [Imdur] 60 mg PO QHS 06/01/19 Isosorbide Mononitrate [Imdur] 90 mg PO BREAKFAST 06/01/19 Vitamin B-12 1 tab PO DAILY 06/01/19 Vitamin D2 1 tab PO DAILY 06/01/19 Furosemide 40 mg PO DAILY #0 tab 06/04/19 Magnesium Oxide [Mag-Ox 400] 400 mg PO BIDCM tab 06/04/19 Primary Care Physician: Victor M Luke DO [Primary Care Provider] - Please follow up with your Primary Care Physician in: in 2 weeks Test Results: Test results from this visit will be discussed in further detail at your follow- up appointment, if applicable. Please Follow Up With: John Palacios MD When: in 3-4 weeks
--- NOTE | 2019-06-04 09:46 | PCM.DC.SUM ---
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 Patient has had angioplasty and drug-eluting stenting with a small 2.25 mm stent several its ago. 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 Procedure aborted. Pt then went to [facility] for POBA of the anomalous LCX on 08/18/2018 [id number] 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 PCI-POBA-Cx and Stent-Mid RCA x 2 Multi Link Mini Vision Rx Stent 4.0 x 28 mm 01/21/2006 Type 2 diabetes mellitus without complications (Chronic) Hypertension (Chronic) Hyperlipidemia (Chronic) Obesity (Chronic) History of coronary artery stent placement (Chronic 08/13/17) Attempted PCI 08/03/2018: 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 Procedure aborted. No complications. [id number] 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 PCI-POBA-Cx and Stent-Mid RCA x 2 Multi Link Mini Vision Rx Stent 4.0 x 28 mm 01/21/2006 Hospital Course and Treatment Operations: None Summary of Care Provided: [] This is a 73 years old male patient with history of coronary artery disease status post stent is being admitted in PCU through ER for chest pain, suggestive of possible unstable angina #1 Chest pain most likely unstable angina: EKG shows sinus bradycardia with possible previous inferior VT. Repeat EKG and troponin negative. Chest x-ray without acute findings. 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 He had PCI done in [facility]. Patient was seen by direct marketing analyst. Isosorbide mononitrate 120 mg a.m. and 60 mg p.m. Continue to monitor as patient still has mild chest pain/pressure. On medical management, aspirin, Plavix, atorvastatin, metoprolol, isosorbide mononitrate, spironolactone Medications optimized. Started on Lasix with decreased to 40 mg once daily. Patient was advised to space out Lasix, isosorbide mononitrate, and amlodipine with a gap of about 2 hours in each of them. Sinus bradycardia: Metoprolol decreased to 25 mg twice daily with holding parameters if heart rate less than 60 per 100. 2/: Patient chest pain is controlled but having side effect of isosorbide mononitrate. Imdur decreased to 60 mg a.m. and at bedtime daily with holding parameters. Hold metoprolol for heart rate less than 60/min. Medications reviewed. Hypokalemia, potassium being replaced. Magnesium level normal. Phosphorus normal. #2 CAD status post stents: As mentioned above #3 COPD: Not in exacerbation. Continue albuterol as needed for shortness of breath. #4 stage III chronic kidney disease: Baseline creatinine has been around 1.3 to 1.5 mg/dL. Admitting creatinine 1.5, most recent 1.38 #5 type 2 diabetes mellitus: ADA diet, Accu-Cheks, insulin sliding scale, continue glimepiride. Blood sugars are controlled. #6 hypertension: Blood pressure was on low normal range, systolic in 100s. Continue Norvasc, nitrate and metoprolol. #7 chronic CHF: Most recent echo in August 2018 reported as EF 65% with mild concentric LVH. Grade 1 diastolic dysfunction. Lasix is on hold. On spironolactone #8 hyperlipidemia: Continue statins. #9 DVT prophylaxis: Subcu heparin. Discharge medication reconciliation done. Discharge follow-up instructions completed. Discharge process discussed with the patient and all questions were answered to patient's satisfaction. Patient was educated about different cardiac medications including Lasix, isosorbide mononitrate, metoprolol, amlodipine, spironolactone. Patient has gynecomastia. Currently is not concerned of changing the medication but advised to check with PCP/direct marketing analyst if eplerenone is an option if his insurance allows. Total time spent, exact 35 minutes on discharge meds reconciliation, examination, coordination of care with nurses and ancillary staff, review of imaging and blood test and discussion with the patient on follow-up instructions Subjective: Seen and examined. Dizziness symptoms has much improved. Patient heart rate is also improved now in 50 to 60s. - Physical Exam Vitals/I&O's: Vital Signs Temp Pulse Resp BP Pulse Ox 98.2 F 56 L 16 134/75 H 95 06/04/19 08:35 06/04/19 08:41 06/04/19 08:35 06/04/19 08:35 06/04/19 08:35 Oxygen Flow Rate (L/min) 2 Oxygen Delivery Method Room Air Weight: 235 lb 7.259 oz Body Mass Index (BMI) 34.7 Finger Stick Blood Glucose 103 Intake and Output for Last 24 Hours 06/02/19 06/03/19 06/04/19 23:59 23:59 23:59 Intake Total 2034.50 / 2274.50 3298.75 / 3778.75 480 / 480 Output Total 1425 / 2425 2350 / 3150 1800 / 1800 Balance 609.50 / -150.50 948.75 / 628.75 -1320 / -1320 General: Alert, Oriented x3, Cooperative HEENT: Atraumatic, PERRLA, EOMI, Normocephalic Neck: Supple, No JVD, Negative Carotid Bruits Lungs: Clear to auscultation, Normal air movement, No rhonchi, No wheeze, No rales Cardiovascular: Regular rate, Regular Rhythm, Normal S1, Normal S2, No murmurs, Bradycardic - Heart rate in 50s to 60s per minute Abdomen: Bowel Sounds Present, Soft, Non Tender Extremities: No edema, Capillary Refill Less than 3 Seconds Skin: No rashes, No breakdown Musculoskeletal: No Tenderness to Palpation of Joints or Extremities, Arthritic Changes Neurological: Cranial nerves II-XII grossly intact, Deep Tendon Reflexes 2+/4 and Symmetrical, Neuro grossly intact Psych/Mental Status: Normal Affect, Appropriate Laboratory Results 06/03/19 09:22: WBC 6.2, RBC 4.79, Hgb 13.8, Hct 42.9, MCV 89.6, MCH 28.8, MCHC 32.2, RDW Std Deviation 43.8, RDW Coeff of Adrian 13.2, Plt Count 129 L, MPV 12.1 H, Immature Gran % (Auto) 0.500, Neut % (Auto) 62.8, Lymph % (Auto) 23.5, Alexander % (Auto) 10.8 H, Eos % (Auto) 2.1, Baso % (Auto) 0.3, Absolute Neuts (auto) 3.9, Absolute Lymphs (auto) 1.45, Nucleated RBC % 0 06/03/19 09:22: Sodium 141, Potassium 4.7, Chloride 112 H, Carbon Dioxide 25.0, Anion Gap 4 L, BUN 15, Creatinine 1.19, Estim Creat Clear Calc 55.29, Est GFR (MDRD) Af Amer 77, Est GFR (MDRD) Non-Af 64, BUN/Creatinine Ratio 12.6, Glucose 149 H, Calcium 8.6, Magnesium 2.2 06/03/19 11:27: POC Glucose 210 H 06/03/19 16:03: POC Glucose 123 H 06/03/19 22:12: POC Glucose 194 H 06/04/19 06:34: POC Glucose 140 H Current Medications Acetaminophen (Tylenol) 650 mg PO Q6H PRN PRN PRN Reason: Pain Score 1-10/Temp > 100.7 F Amlodipine Besylate (Norvasc) 2.5 mg PO DAILY [facility] Last Admin: 06/04/19 08:41 Dose: 2.5 mg Documented by: Aspirin (Ecotrin) 81 mg PO DAILY@0800 [facility] Last Admin: 06/04/19 08:38 Dose: 81 mg Documented by: Atorvastatin Calcium (Lipitor) 40 mg PO QHS [facility] Last Admin: 06/03/19 22:13 Dose: 40 mg Documented by: Clopidogrel Bisulfate (Plavix) 75 mg PO DAILY [facility] Last Admin: 06/04/19 08:42 Dose: 75 mg Documented by: [facility]oc[facility]amin ([facility]itamin [facility]) [facility] Admin: 06/04/19 09:24 Dose: 1,000 mcg Documented by: Fluoxetine HCl (Prozac) 40 mg PO DAILY [facility] Last Admin: 06/04/19 08:42 Dose: 40 mg Documented by: [facility]pir[facility] (Amaryl) [facility] Last Admin: 06/04/19 08:38 Dose: 2 mg Documented by: Glucagon () 1 mg IM .X1 PRN PRN Reason: Hypoglycemia Heparin Sodium (Porcine) (Heparin Na) 5,000 unit SC Q8 [facility] Last Admin: 06/04/19 06:39 Dose: 5,000 unit Documented by: Dextrose (Dextrose 10%-Water) 250 mls @ 999 mls/hr IV .Q16M PRN; Protocol PRN Reason: HYPOGLYCEMIA Sodium Chloride () 250 mls @ 15 mls/hr IV .[id number] PRN PRN Reason: Saline Flush Sodium Chloride () 250 mls @ 15 mls/hr IV .[id number] PRN PRN Reason: Additional IVPB Infusion Insulin Human Lispro (Humalog Kwikpen (Bkc)) 0 unit SC ACHS [facility]; Protocol Last Admin: 06/04/19 06:39 Dose: Not Given Documented by: Isosorbide Mononitrate (Imdur) 60 mg PO QHS [facility] Last Admin: 06/03/19 22:12 Dose: 60 mg Documented by: Isosorbide Mononitrate (Imdur) 60 mg PO BREAKFAST [facility] Last Admin: 06/04/19 08:38 Dose: 60 mg Documented by: Magnesium Oxide (Mag-Ox 400) [facility] Last Admin: 06/04/19 08:38 Dose: 400 mg Documented by: Metoprolol Tartrate (Lopressor (Beta Kale)) 25 mg PO BID [facility] Last Admin: 06/04/19 08:41 Dose: Not Given Documented by: Mirtazapine (Remeron) 15 mg PO QHS [facility] Last Admin: 06/03/19 22:13 Dose: 15 mg Documented by: Nitroglycerin (Nitrostat) 0.4 mg SUBLINGUAL Q5M PRN PRN Reason: CHEST PAIN Ondansetron HCl (Zofran) 4 mg IV Q8H PRN PRN PRN Reason: NAUSEA/VOMITING Pantoprazole Sodium (Protonix) 20 mg PO DAILY [facility] Last Admin: 06/04/19 08:42 Dose: 20 mg Documented by: Potassium Chloride (K-Dur) 40 meq PO BID [facility] Last Admin: 06/04/19 08:40 Dose: 40 meq Documented by: Sodium Chloride () 10 - 40 ml IV UD PRN PRN Reason: SALINE FLUSH Last Admin: 06/03/19 22:21 Dose: 10 ml Documented by: Spironolactone (Aldactone) 25 mg PO DAILY [facility] Last Admin: 06/04/19 09:26 Dose: 25 mg Documented by: Home Medications: Medications to take at Discharge Aspirin E.C. [Ecotrin] 81 mg PO DAILY@0800 01/21/17 clopidogrel 75 mg tablet 75 mg PO DAILY #90 tab 06/09/18 nitroglycerin 0.4 mg sublingual tablet 0.4 mg SUBLINGUAL Q5-15M PRN #25 tab 06/09/18 pantoprazole 20 mg tablet,delayed release 20 mg PO DAILY 08/26/18 atorvastatin 40 mg tablet 40 mg PO QHS #90 tab 09/14/18 fluoxetine 40 mg capsule 40 mg PO DAILY 90 Days #90 cap 09/21/18 glimepiride 1 mg tablet 2 mg PO DAILY 90 Days #90 tab 09/21/18 mirtazapine 15 mg tablet 15 mg PO QHS tab 09/21/18 spironolactone 25 mg tablet 25 mg PO DAILY #90 tab 10/28/18 potassium chloride 20 mEq tablet,extended release(part/cryst) 40 meq PO BID #360 tab 12/30/18 amlodipine 2.5 mg tablet 2.5 mg PO DAILY #90 tab 03/31/19 Isosorbide Mononitrate [Imdur] 60 mg PO QHS 06/01/19 Isosorbide Mononitrate [Imdur] 90 mg PO BREAKFAST 06/01/19 Vitamin B-12 1 tab PO DAILY 06/01/19 Vitamin D2 1 tab PO DAILY 06/01/19 Furosemide 40 mg PO DAILY #0 tab 06/04/19 Magnesium Oxide [Mag-Ox 400] 400 mg PO BIDCM tab 06/04/19 Metoprolol Tartrate [Lopressor (beta kale)] 25 mg PO BID tab 06/04/19 Primary Care Physician: Victor M Luke DO [Primary Care Provider] - Please follow up with your Primary Care Physician in: in 2 weeks Please Follow Up With: John Palacios MD When: in 3-4 weeks Medical Necessity - Tobacco Use Smoking Status: Former smoker Meaningful Use Info Meaningful Use Diagnoses (Choose all that apply): None applicable Code Visit Inpatient E&M: 37123 Disch Hosp
--- NOTE | 2019-06-05 14:00 | CASEMGMT ---
Case Management DC F/u Call: DC Date: Wednesday06/04/2019 DC Diagnosis: Unstable angina: Sinus bradycardia, On medical management DC Disposition: Home Lace/Strata: 02/02 Called patient listed cell phone on demographics, patient answered and this marketing writer introduced self and role. Patient states that he is doing pretty good, states that he still is dizzy but has not been going out and doing much. This marketing writer advised to f/u with provider as the dizziness could be from medications or from medical condition and patient states he has scheduled a F/u appointment and his is a good support and able to help if needed. Denies any questions or concerns with [facility], medications or f/u. Thanked patient for choosing care at [facility] and conversation ended. Randa Hodges RNCM
== END 2019-06-04 11:35 | disposition home or self-care (01) | DRG 303 ==
LOC: ED 20:42 → PCU 23:34
PROVIDERS: Admitting Provider Hospitalist; Emergency Provider Emergency Medicine; PCP Family Medicine; Visit Provider Internal Medicine
DX: I25.110 Atherosclerotic heart disease of native coronary artery with unstable angina pectoris (principal); I13.0 Hypertensive heart and chronic kidney disease with heart failure and stage 1 through stage 4 chronic kidney disease, or unspecified chronic kidney disease; I50.32 Chronic diastolic (congestive) heart failure; R00.1 Bradycardia, unspecified; E87.6 Hypokalemia; Z68.34 Body mass index [BMI] 34.0-34.9, adult; E11.22 Type 2 diabetes mellitus with diabetic chronic kidney disease; N18.3 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, stage 3 (moderate); E78.5 Hyperlipidemia, unspecified; E66.9 Obesity, unspecified; Z86.73 Personal history of transient ischemic attack (TIA), and cerebral infarction without residual deficits; I25.2 Old myocardial infarction; Z87.891 Personal history of nicotine dependence; G47.33 Obstructive sleep apnea (adult) (pediatric); J44.9 Chronic obstructive pulmonary disease, unspecified; Z79.82 Long term (current) use of aspirin; Z79.84 Long term (current) use of oral hypoglycemic drugs; Z79.899 Other long term (current) drug therapy; Z79.02 Long term (current) use of antithrombotics/antiplatelets; Z85.820 Personal history of malignant melanoma of skin; Z98.61 Coronary angioplasty status
CPT/HCPCS: 36415; 71045; 80048; 82962; 83735; 84484; 85025; 85610; 93005; 97110; 97162; 97166; 97530; 99285; J7030; A4216

== ENCOUNTER 2019-06-23 14:13 | Emergency (ER) | payer MEDICARE, OTHER, SELFPAY ==
[2018-08-03 13:04] VITALS: BMI 19.8
[2019-06-15 14:57] VITALS: BMI 35.7
[2019-06-23 14:17] VITALS: BP 169/95; PULSE 69; RESP 20; TEMP 36.7; O2SAT 95; BMI 34.7
--- NOTE | 2019-06-23 15:16 | EKG12_ITS ---
Test Reason : DIZZNESS Blood Pressure : / mmHG Vent. Rate : 051 BPM Atrial Rate : 051 BPM P-R Int : 172 ms QRS Dur : 096 ms QT Int : 432 ms P-R-T Axes : 063 079 072 degrees QTc Int : 398 ms Sinus bradycardia with occasional Premature ventricular complexes Otherwise normal ECG Confirmed by CONCHIS PALOMO, DELFINA ([id number]), metropolitan editor VERONICA SCOTT ([id number]) on 06/26/2019 2:08:28 PM Referred By: LÓPEZ Confirmed By:BAM BALDERRAMA MD
[2019-06-23] MEDS: Aspirin 81 MG TAB.CHEW 324 MG PO (15:20)
--- NOTE | 2019-06-23 15:20 | RAD_ITS ---
STUDY: X-RAY CHEST REASON FOR EXAM: Male, 73 years old. Patient complains of dizziness TECHNIQUE: Single AP portable view of the chest. COMPARISON: Comparison is made with prior study dated June 01, 2019. FINDINGS: EKG electrodes are seen. The lungs are clear and expanded. Stable thickening of the right lateral pleural space. Normal size heart. Normal mediastinum and melanie. Normal visualized pulmonary arteries. There is atherosclerotic calcification of the aortic arch with tortuosity. There are diffuse degenerative changes of the visualized thoracic spine. Prior fusion in the lower cervical spine. There is no demonstrated abnormality of the visualized soft tissue structures of the upper abdomen. RAD/Chest 1 View (Portable) IMPRESSION: Stable examination. Electronically Signed: Constantin Lee, at 15:29 EST , Service support ,
[2019-06-23 16:02] VITALS: O2SAT 96
[2019-06-23 16:14] VITALS: BP 156/89; PULSE 67; RESP 18; O2SAT 96
[2019-06-23 16:15] VITALS: BP 139/83; BP 156/89; PULSE 54; PULSE 64
[2019-06-23 16:27] LABS: Absolute Lymphocyte Count 1.37 X10^3/uL (0.83-4.51); Absolute Neutrophil Count 5.1 X10^3/uL (2.0-7.7); Basophil# 0.03 X10^3/uL; Basophil% 0.4 % (0-1); Eosinophil# 0.05 X10^3/uL; Eosinophils% 0.7 % (0-5); Hematocrit 45.2 % (40-54); Hemoglobin 14.6 g/dL (13.0-16.5); Lymphocyte # 1.37 X10^3/ul (4.0); Lymphocyte % 18.3 % (19-41); Mean Corp Hgb Conc 32.3 g/dL (32-36); Mean Corpuscular Hgb 28.7 pg (27.0-32.0); Mean Platelet Vol. 12.4 fl (6.2-12.0); Monocyte# 0.85 X10^3/uL; Monocyte% 11.4 % (0-10); NRBC Flagged by Analyzer 0 % (0-5); Neutrophil # 5.13 X10^3/uL (2.7-7.7); Neutrophil % 68.7 % (47-70); Platelet Count 143 K/mm3 (150-450); RBC Distribution Width CV 13.3 % (11.6-14.6); RBC Distribution Width SD 43.3 fl (35.1-43.9); Red Blood Count 5.08 M/mm3 (4.6-6.2); White Blood Count 7.5 K/mm3 (4.4-11.0)
[2019-06-23] MEDS: 0.9% Normal Saline 1,000 ML 999 ML IV (16:36)
[2019-06-23 16:41] LABS: Anion Gap 5 (5-15); BUN 19 mg/dL (7-18); BUN/Creat Ratio 15.3 RATIO (10-20); Chloride 105 mmol/L (98-107); Creatinine, Serum 1.24 mg/dL (0.70-1.30); EST Glomerular Filtration Rate 61 mL/min (>60); Est Glom Filt Rate - Afr Amer 73 mL/min (>60); Glucose 171 mg/dL (74-106); Magnesium 2.1 mg/dL (1.6-2.6); Potassium 4.2 mmol/L (3.5-5.1); Sodium Level 137 mmol/L (136-145); Thyroid Stim Hormone (TSH) 2.66 uIU/mL (0.358-3.74)
--- NOTE | 2019-06-23 16:46 | ED.DCSUM_ITS ---
- ER Visit Summary Date of Service: 06/23/19 Chief Complaint: Chest pain and lightheadedness History of Present Illness: The patient is a [address] Olmstead and Dr. Luke. He reports that he has chest pain that began yesterday. Is an intermittent pain lasts 5 to 10 minutes while he is at rest. He reports last episode was 1 hour ago. 7 out of 10 at worst and is pain-free currently. Is worsened by nothing including exertion. Is been relieved by nothing including nitroglycerin. Reports that he has been mildly short of breath with it. He denies any nausea, vomiting, or diaphoresis. He denies any radiation the pain. Patient reports approximately 130 this afternoon while laying down he became nauseated. He went to stand up and felt very lightheaded. He fell back to the bed. He did not lose consciousness. Physical Examination: Vitals: Stable. Afebrile. General: Well-nourished and well-developed. Head: Normocephalic atraumatic. Neck: Supple, no lymphadenopathy. No JVD. Nontender. Cardiovascular: Regular rate and rhythm. No murmurs. Respiratory: No respiratory distress. Clear to auscultation bilaterally. Abdominal: Soft, nontender, nondistended, normal bowel sounds. No guarding, rebound, or peritoneal signs. Back: Nontender. Extremities: Nontender, no edema. Skin: Normal color, no rash. Neurologic: Alert and oriented ?3. Cranial nerves II through XII are intact. Normal strength and sensation. Psych: Normal affect. Test Results: EKG is sinus bradycardia at 51 with a PVC and nonspecific ST changes. Is unchanged from last month. Troponin is negative. Chem-7 is marked for BUN of 19. CBC is marked for platelets 143, lymphocytes of 18, monocytes of 11. TSH is normal. Chest x-ray is normal. Emergency Department Course and Treatment: Patient was given a dose of aspirin. He was given a liter of normal saline. He is resting more comfortably. He reports that he was supposed to have a 30-day monitor placed 3 days ago. States that there was a problem with the monitor and it was not placed. He was then mailed 1 to home and again there was a problem with the monitor and he was unable to place this yesterday. Treatment Plan: Patient was discussed with Dr. Olmstead who is familiar with the patient. He was admitted earlier this month and does not feel that there would be any utility in admitting him again. Unfortunately we are not able to place a 30-day monitor at this time from the emergency department as a staff is left. However, he did have a 48-hour Holter monitor placed. He will be discharged with instructions to follow-up with Dr. Olmstead next week for further evaluation. Follow-up with his primary care physician in 3 to 5 days. Return to the emergency department for any worsening symptoms. Disposition: To home in improved and stable condition. Impression: 1. Sinus bradycardia. 2. Atypical chest pain. This note was generated with [employer] dictation software. It may contain incorrect words, spelling, and punctuation that were not noted in review of the chart prior to signing ED Disposition - Plan for ED Patient: Disposition: Home or Assisted Living Instructions: NEAR SYNCOPE, Unknown Referrals: Victor M Luke DO [Primary Care Provider] - 3-5 Days if not improving Elías Olmstead MD [STAFF PHYSICIAN] - As soon as possible
[2019-06-23 18:00] VITALS: BP 132/77; PULSE 65; RESP 18; O2SAT 96
[2019-06-23 18:47] VITALS: BP 132/77; PULSE 59; RESP 23; O2SAT 97
== END 2019-06-23 18:48 | disposition home or self-care (01) ==
LOC: ED 15:33
PROVIDERS: Emergency Provider Emergency Medicine; PCP Family Medicine
DX: R00.1 Bradycardia, unspecified (principal); R07.89 Other chest pain; R06.02 Shortness of breath; W06.XXXA Fall from bed, initial encounter; E11.9 Type 2 diabetes mellitus without complications; I10 Essential (primary) hypertension; I25.10 Atherosclerotic heart disease of native coronary artery without angina pectoris; E78.00 Pure hypercholesterolemia, unspecified; J44.9 Chronic obstructive pulmonary disease, unspecified; Z86.73 Personal history of transient ischemic attack (TIA), and cerebral infarction without residual deficits; Z87.891 Personal history of nicotine dependence
CPT/HCPCS: 71045; 80048; 83735; 84443; 84484; 85025; 93005; 93225; 93226; 96360; 99285; J7030; A4216

== ENCOUNTER → 2019-06-23 18:43 | Outpatient (CLI) | payer MEDICARE, OTHER, SELFPAY ==
[2018-08-03 13:04] VITALS: BMI 19.8
[2019-06-23 14:17] VITALS: BMI 34.7
== END ==
PROVIDERS: PCP Family Medicine; Visit Provider Emergency Medicine
DX: R42 Dizziness and giddiness (principal)

== ENCOUNTER → 2019-12-04 14:39 | Outpatient (CLI) | payer MEDICARE, OTHER, SELFPAY ==
[2018-08-03 13:04] VITALS: BMI 19.8
[2019-06-27 13:06] VITALS: BMI 35.2
[2019-12-04 15:45] LABS: Hematocrit 43.4 % (40-54); Hemoglobin 13.9 g/dL (13.0-16.5); Mean Corpuscular Hgb 28.4 pg (27.0-32.0); Mean Corpuscular Volume 88.8 fL (80-94); Platelet Count 138 K/mm3 (150-450); RBC Distribution Width CV 13.9 % (11.6-14.6); RBC Distribution Width SD 44.8 fl (35.1-43.9); Red Blood Count 4.89 M/mm3 (4.6-6.2); White Blood Count 6.3 K/mm3 (4.4-11.0)
[2019-12-04 16:03] LABS: Anion Gap 7 (5-15); BUN 15 mg/dL (7-18); BUN/Creat Ratio 11.1 RATIO (10-20); Calcium,Total 8.4 mg/dL (8.5-10.1); Chloride 105 mmol/L (98-107); Creatinine, Serum 1.35 mg/dL (0.70-1.30); EST Glomerular Filtration Rate 55 mL/min (>60); Est Glom Filt Rate - Afr Amer 66 mL/min (>60); Glucose 359 mg/dL (74-106); Potassium 4.1 mmol/L (3.5-5.1); Sodium Level 138 mmol/L (136-145)
== END ==
PROVIDERS: PCP Family Medicine; Referring Provider Physician Assistant Medical; Visit Provider Physician Assistant Medical
DX: I50.9 Heart failure, unspecified (principal); I25.119 Atherosclerotic heart disease of native coronary artery with unspecified angina pectoris; R06.02 Shortness of breath; R53.83 Other fatigue
CPT/HCPCS: 36415; 80048; 85027

== ENCOUNTER 2019-12-04 15:26 | Emergency (ER) | payer MEDICARE, OTHER, SELFPAY ==
[2018-08-03 13:04] VITALS: BMI 19.8
[2019-06-27 13:06] VITALS: BMI 35.2
[2019-12-04] VITALS (9 sets, daily range): BP systolic 136–168; BP diastolic 81–94; PULSE 75–94; RESP 14–23; TEMP 37.1; O2SAT 96–97; BMI 35.1
--- NOTE | 2019-12-04 15:39 | EKG12_ITS ---
Test Reason : CP Blood Pressure : / mmHG Vent. Rate : 091 BPM Atrial Rate : 091 BPM P-R Int : 170 ms QRS Dur : 098 ms QT Int : 354 ms P-R-T Axes : 069 055 019 degrees QTc Int : 435 ms Normal sinus rhythm Cannot rule out Inferior infarct , age undetermined Poor R- wave Progression Abnormal ECG Confirmed by RACH PALOMO, MUKUL ([id number]), video effects editor SUKH PERALES ([id number]) on 12/06/2019 10:52:42 AM Referred By: DERECK Confirmed By:MUKUL LOYD MD
--- NOTE | 2019-12-04 15:40 | ED.VIS.CHEST ---
History of Present Illness Chief Complaint: Chest Pain Informant: Patient Onset: Month(s) - 2-3 Activity at onset: Light Activity, Rest, - - (varies; today, sitting at rest) Timing: Intermittent, Lasts - sometimes 1-3 days Quality: Dull - and nonpleuritic Location: Left Chest Current Severity: Moderate Maximum Severity: Moderate Worsened By: Nothing Relieved By: Nothing Associated Symptoms: Dyspnea - sometimes. Negative for: Nausea, Vomiting, Diaphoresis, Cough, Lightheadedness Narrative: Patient has a prior history of heart disease, he has 6 stents, the last of which was placed about a year and a half ago. He has been compliant with his aspirin and Plavix and his other medications. He states he has been having this intermittent chest pain on the left side off and on for several months. He gets it multiple times per week. He states today is the first time he has seen a doctor for it, he has been afraid of the coronavirus and avoided hospitals in the emergency department, but today he was getting some routine outpatient blood work here at the hospital and was sitting after having had his blood drawn, when the discomfort started, around 30 minutes prior to evaluation here in the ER. He states today, as it has on some occasions, he got tingling in his left arm with that. He states EKGs have never shown anything significant when he has needed stents in the past, according to doctors reading them. He denies any recent illnesses. He has chronic leg edema that has been a little worse than usual in the past week or 2, he wears compression stockings which are on now. 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 Procedure aborted. 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 Procedure aborted. No complications. 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 Alexandr Mcclain (8) Hyperlipidemia Status: Chronic (9) Hypertension Status: Chronic (10) Obstructive sleep apnea Status: Chronic (11) TIA (transient ischemic attack) Status: Chronic (12) Type 2 diabetes mellitus without complications Status: Chronic Past Medical History - Allergies and Home Meds Allergies/Adverse Reactions: Allergies No Known Allergies Allergy (Verified 12/04/19 15:34) Primary Care Physician: Marcin Araujo MD [STAFF PHYSICIAN] - (Call for follow-up this week, Dr. Olmstead is currently out of town) Victor M Luke DO [Primary Care Provider] - Doctors: Cardiology Ishan Surgical History: angioplasty, herniorrhaphy, tonsillectomy, TURP, - - PCI ?6, tonsillectomy, cholecystectomy, TURP, hernia repair ?2, left shoulder surgery, neck cyst removal. Smoking Status: Former smoker - Family History Maternal Family History: Reports: - - Denies maternal cardiac history Paternal Family History: Reports: - - Father with a history of Parkinson's disease and prostate cancer Review of Systems General: Denies: Chills, Fever, Sweats Eyes: Denies: Visual changes - bilaterally, Diplopia ENT: Denies: Bilateral ear pain, Rhinorrhea, Sore throat Cardiovascular: Reports: Chest pain. Denies: Palpitations Respiratory: Reports: Cough - Minor, chronic, unchanged, Dyspnea on exertion - Occasional. Denies: Dyspnea, Sputum Gastrointestinal: Reports: Diarrhea - Chronic, intermittent, loose not watery. Denies: Abdominal pain, Nausea, Vomiting, Melena, Hematochezia Genitourinary: Denies: Dysuria, Hematuria, Frequency Musculoskeletal: Reports: Swelling - Chronic see HPI. Denies: Myalgias, Neck pain, Back pain, Extremity Pain Skin: Denies: Rash, Wounds Neurological: Denies: Headache, Weakness, Numbness Physical Exam Vital Signs/Narrative: Vital Signs Temp Pulse Resp BP Pulse Ox 12/04/19 15:28 98.8 F 84 20 H 168/87 H 96 Inital Vital Signs reviewed: Yes General: Well nourished, Well developed, Obese, Unkempt, No Acute Distress Head: Normocephalic, Atraumatic Eyes: Perrl, EOMI ENT: Moist mucous membranes, No rhinorrhea Neck: Supple, Nontender, No lymphadenopathy, No JVD Cardiovascular: Regular rate, Regular rhythm, No murmurs Respiratory: No distress, CTA bilaterally, Chest nontender Abdomen: Soft, Nontender, Nondistended, Normal bowel sounds Back: Nontender, Normal Inspection Extremities: Nontender, Edema - 1+ both lower extremities symmetric to knees, compression stockings in place Skin: Normal color, No rash, No Trauma Neurological: Alert, Oriented x3, Cranial nerves II-XII grossly intact, Normal Strength, Normal Sensation, Normal Gait Psychological: Normal affect, Normal Mood Diagnostic/Tx/Re-eval Impressions Chest X-Ray 12/04/19 16:15 IMPRESSION: No acute cardiopulmonary disease or interval change. Electronically Signed: Carter Vargas DO at 16:38 EDT Tel [phone], Service support , 12/04/19 16:15 Chest 1 View (Portable) [RAD] Stat Laboratory Results 12/04/19 12/04/19 15:39 19:30 Troponin I < 0.015 < 0.015 - Rhythm Strip Rhythm Strip: Sinus Rhythm Rate: 91 Ectopy: None - EKG Initial EKG Interpretation: Sinus Rhythm, No Acute Injury Pattern, Non-Specific ST Changes - Flattening T waves fairly diffuse in limb leads; no ST segment elevations or depressions, - - Inferior Q waves are unchanged. Normal axis, no AV block present. Prior: Unchanged - Medical Decision Making Patient was given nitroglycerin sublingual x2, this did not help his pain at all. He was then given a GI cocktail, that also did not help his pain and he states that now his pain is 8/10, worse than when he got here. He is given morphine for that. His CBC and BMP were run, which were drawn as his routine labs a little earlier, they are unremarkable, we sent a troponin that was negative. I discussed with Dr. Araujo, he states given the history, he recommends close outpatient follow-up if his delta troponin is negative, which it is. Also recommends increasing his metoprolol to 50 mg twice daily, he currently is at 25 mg twice daily. He is already compliant with his aspirin, Plavix, and long-acting nitrate. ED Disposition - Plan for ED Patient: Disposition: Home or Assisted Living Diagnosis: Chest pain, unspecified Instructions: ED Chest Pain Atypical Unkn Cause Referrals: Victor M Luke DO [Primary Care Provider] - Marcin Araujo MD [STAFF PHYSICIAN] - (Call for follow-up this week, Dr. Olmstead is currently out of town) Additional Instructions: Increase your metoprolol 25mg to 2 pills twice daily, instead of just 1.
[2019-12-04] MEDS: Aspirin 81 MG TAB.CHEW 162 MG PO (15:50)
[2019-12-04] MEDS: Nitroglycerin SL (ED/IMG/CATH) 0.4 MG TABLET SUBLINGUAL ×3 (15:52→16:09)
--- NOTE | 2019-12-04 16:15 | RAD_ITS ---
STUDY: X-RAY CHEST REASON FOR EXAM: Male, 74 years old. Left-sided chest pain radiating into the left arm. Tingling. Shortness of breath. TECHNIQUE: Single AP portable view of the chest. COMPARISON: 06/23/2019. FINDINGS: The lungs are clear and expanded. There is no demonstrated pleural abnormality. Normal size heart. Normal mediastinum and melanie. Normal visualized pulmonary arteries. There is atherosclerotic calcification of the aortic arch with tortuosity. There are diffuse degenerative changes of the visualized thoracic spine. Again seen is surgical fusion lower cervical spine. Again seen are surgical changes of the left shoulder. There is no demonstrated abnormality of the visualized soft tissue structures of the upper abdomen. RAD/Chest 1 View (Portable) IMPRESSION: No acute cardiopulmonary disease or interval change. Electronically Signed: Carter Vargas DO at 16:38 EDT Tel [phone], Service support ,
[2019-12-04] MEDS: Mag Hydrox/Al Hydrox/Simeth 30 ML UDC PO (18:31)
[2019-12-04] MEDS: Morphine 2 MG/ML Syringe 4 MG IV (19:42)
== END 2019-12-04 20:33 | disposition home or self-care (01) ==
PROVIDERS: Emergency Provider Emergency Medicine; PCP Family Medicine
DX: R07.9 Chest pain, unspecified (principal); E11.22 Type 2 diabetes mellitus with diabetic chronic kidney disease; E78.5 Hyperlipidemia, unspecified; G47.33 Obstructive sleep apnea (adult) (pediatric); I25.10 Atherosclerotic heart disease of native coronary artery without angina pectoris; I13.0 Hypertensive heart and chronic kidney disease with heart failure and stage 1 through stage 4 chronic kidney disease, or unspecified chronic kidney disease; I50.9 Heart failure, unspecified; J44.9 Chronic obstructive pulmonary disease, unspecified; N18.3 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, stage 3 (moderate); Z79.02 Long term (current) use of antithrombotics/antiplatelets; Z85.820 Personal history of malignant melanoma of skin; Z86.73 Personal history of transient ischemic attack (TIA), and cerebral infarction without residual deficits; Z87.891 Personal history of nicotine dependence; Z90.49 Acquired absence of other specified parts of digestive tract; Z95.5 Presence of coronary angioplasty implant and graft
CPT/HCPCS: 36415; 71045; 80048; 84484; 85027; 93005; 96361; 96374; 99285; J7030; A4216

== ENCOUNTER → 2019-12-05 12:11 | Outpatient (CLI) | payer MEDICARE, OTHER, SELFPAY ==
[2018-08-03 13:04] VITALS: BMI 19.8
[2019-12-05 09:41] VITALS: BMI 34.5
== END ==
PROVIDERS: PCP Family Medicine; Referring Provider Physician Assistant Medical; Visit Provider Physician Assistant Medical
DX: I50.9 Heart failure, unspecified (principal)
CPT/HCPCS: 36415; 83880

== ENCOUNTER → 2019-12-11 09:45 | Outpatient (CLI) | payer MEDICARE, OTHER, SELFPAY ==
[2018-08-03 13:04] VITALS: BMI 19.8
[2019-12-05 09:41] VITALS: BMI 34.5
--- NOTE | 2019-12-11 09:46 | ART_ITS ---
Reason For Study: Claudication Procedure A bilateral lower extremity continuous wave Doppler with analog waveform analysis,segmental pressures,and ankle brachial indexes without exercise. Left Segmental Pressures Left brachial= 126mmHg. Left posterior tibial artery = 177mmHg. Left dorsalis pedis artery = 170mmHg. Left digit = 144 mmHg. The left dorsalis pedis waveforms are triphasic. The left posterior tibial artery waveforms are triphasic. Right Segmental Pressures Right brachial= 130mmHg. Right posterior tibial artery = 186mmHg. Right dorsalis pedis artery = 189mmHg. Right digit = 127 mmHg. The right dorsalis pedis waveforms are triphasic. The right posterior tibial artery waveforms are triphasic. Indices The right ankle brachial index by the dorsalis pedis is 1.45. The right ankle brachial index by the posterior tibial artery is 1.43. The right digital-brachial index is 0.98. The left ankle brachial index by the dorsalis pedis is 1.31. The left ankle brachial index by the posterior tibial artery is 1.36. The left digital-brachial index is 1.11. Interpretation Summary Resting ankle-brachial indices appear bilaterally normal. Normal bilateral lower extremity dorsalis pedis and posterior tibialis triphasic Doppler waveforms. Normal bilateral digital brachial indices Ordering Physician: Adina Mariscal Referring Physician: Victor M Luke Performed By: Jacque Fatima RVT and Student
== END ==
PROVIDERS: PCP Family Medicine; Referring Provider Physician Assistant Medical; Visit Provider Physician Assistant Medical
DX: I73.9 Peripheral vascular disease, unspecified (principal); I25.119 Atherosclerotic heart disease of native coronary artery with unspecified angina pectoris
CPT/HCPCS: 93923

== ENCOUNTER → 2019-12-19 10:08 | Outpatient (CLI) | payer MEDICARE, OTHER, SELFPAY ==
[2018-08-03 13:04] VITALS: BMI 19.8
[2019-12-05 09:41] VITALS: BMI 34.5
--- NOTE | 2019-12-19 10:10 | STEWCON_ITS ---
Reason For Study: CAD; Chest Pain; Dyspnea Stress Results Protocol: Dobutamine Stress Echo With Definity Maximum Predicted HR: 146 bpm Target HR: 124 bpm % Maximum Predicted HR: 87 % Heart Stage Duration Rate BP Comment (mm:ss) (bpm) Intermittent Chest Pain Throughout Test; 6 ML Diluted Definity Baseline 66 142/79Given DSE 10 MCG 3:05 54 155/88Intermittent Chest Pain DSE 20 MCG 3:00 78 138/64Intermittent Chest Pain DSE 30 MCG 3:00 100 144/58Intermittent Chest Pain; Atropine 0.25 MG IVP DSE 40 MCG 3:48 127 168/77Intermittent Chest Pain; Atropine 0.25 MG IVP Recovery 101 138/86Intermittent Chest Pain Stress Duration: 12:53 mm:ss Maximum Stress HR: 127 bpm METS: 1 Baseline Echocardiogram Findings The estimated ejection fraction is 65 %. Stress Echo Wall motion Data Resting WM Intermediate WM Stress WM Resting Wall Motion Wall Motion Stress No regional wall motion No regional wall motion abnormalities noted. abnormalities noted. EKG Data The baseline ECG displays normal sinus rhythm. The patient was titrated from 10 mcg to a maximum of 40 mcg of dobutamine during the stress. The maximum heart rate attained was 131 beats per minute. This was 89% of maximum predicted heart rate. During dobutamine infusion, there were no ST or T wave changes noted to suggest ischemia. No clinical angina was noted. Interpretation Summary The estimated ejection fraction is 65 %. Normal, adequate, dobutamine echocardiogram. Negative for ischemia by EKG and echocardiographic criteria. No anginal symptoms noted. Rare PVC noted. Appropriate blood pressure response to dobutamine. Final LVEF is 75%. Test terminated due to the attainment target heart rate. Decrease sensitivity due to poor echo windows requiring Definity agent. Patient tolerated procedure well. No complications. The study was technically difficult. Contrast injection was performed. Ordering Physician: Adina Mariscal Referring Physician: Elías Olmstead Performed By: Tor Acosta RCS
== END ==
PROVIDERS: PCP Family Medicine; Referring Provider Physician Assistant Medical; Visit Provider Physician Assistant Medical
DX: I25.119 Atherosclerotic heart disease of native coronary artery with unspecified angina pectoris (principal)
CPT/HCPCS: 93017; 93350; J7040; Q9957; A4216; C8928

== ENCOUNTER 2019-12-20 12:11 | Inpatient (IN) | payer MEDICARE, OTHER, SELFPAY ==
[2018-08-03 13:04] VITALS: BMI 19.8
[2019-12-05 09:41] VITALS: BMI 34.5
[2019-12-20] VITALS (14 sets, daily range): BP systolic 142–167; BP diastolic 71–91; PULSE 52–65; RESP 15–19; TEMP 36.6–36.7; O2SAT 95–97; BMI 35.8; BMI 35.1; BMI 34.7
--- NOTE | 2019-12-20 12:34 | EKG12_ITS ---
Test Reason : Blood Pressure : / mmHG Vent. Rate : 056 BPM Atrial Rate : 056 BPM P-R Int : 186 ms QRS Dur : 100 ms QT Int : 460 ms P-R-T Axes : 064 076 070 degrees QTc Int : 443 ms Sinus bradycardia Otherwise normal ECG Confirmed by JENNIFER BOLANOS ([id number]), multimedia editor SUKH PERALES ([id number]) on 12/25/2019 9:36:39 AM Referred By: BRIEN Confirmed By:JENNIFER BOLANOS
--- NOTE | 2019-12-20 12:34 | CT_ITS ---
We are attempting to reach an attending provider to discuss findings. An addendum with communication details will be sent when the communication is complete. STUDY: CT BRAIN WITHOUT CONTRAST REASON FOR EXAM: Male, 74 years old. STROKE RADIATION DOSAGE (If Supplied By Facility): CTDIvol = ( 44.99 ) mGy, DLP = ( 812.98 ) mGycm TECHNIQUE: Transaxial CT imaging of the brain was performed without administration of intravenous contrast material. Individualized dose optimization techniques were used for this CT. COMPARISON: No relevant priors. FINDINGS: Normal soft tissue structures. Normal calvarium. Normal size ventricles and extra-axial spaces for the patient''s age. There are areas of decreased attenuation within the white matter tracts of the supratentorial brain, consistent with microvascular disease changes. Normal basal ganglia and thalami. Normal brainstem. Normal cerebellum. There is no intracranial hemorrhage. There are no findings of an acute ischemic infarction. Normal visualized paranasal sinuses. CT/Brain/Head without Contrast IMPRESSION: Chronic involutional changes of the brain. Electronically Signed: Tiffany Jacobsen, at 12:52 EDT Tel , Service support ,
--- NOTE | 2019-12-20 12:35 | CT_ITS ---
STUDY: CTA HEAD AND NECK WITH CONTRAST REASON FOR EXAM: Male, 74 years old. CVA RADIATION DOSAGE (If Supplied By Facility): CTDIvol = ( 20.65 ) mGy, DLP = ( 739.15 ) mGycm TECHNIQUE: CT angiography was performed with a multi-detector CT scanner. Data acquisition was obtained from the skull base through the vertex following intravenous administration of IV 100mL Isovue-370. MIP images were reconstructed from the axial data set. Post-processing of the angiographic images was performed, with multiplanar reformation and 3D reconstruction. Individualized dose optimization techniques were used for this CT. COMPARISON: No relevant priors. FINDINGS: Normal bilateral petrous carotid arteries. Normal right cavernous carotid artery with a normal supraclinoid bifurcation. Normal left cavernous carotid artery with a normal supraclinoid bifurcation. Normal right A1 segments of the anterior cerebral artery. Normal left A1 segments of the anterior cerebral artery. Normal intact anterior communicating artery (ACOM). Normal bilateral A2 segments of the anterior cerebral arteries. Normal right M1 and M2 segments of the middle cerebral arteries, with a normal M1 bifurcation. Normal left M1 and M2 segments of the middle cerebral arteries, with a normal M1 bifurcation. Normal right posterior communicating artery (PCOM). Normal left posterior communicating artery (PCOM). Normal bilateral vertebral arteries. Normal basilar artery with a normal basilar bifurcation. The visualized bilateral superior cerebellar (SCA) arteries are normal. Normal bilateral P1, P2 and visualized P3 segments of the posterior cerebral arteries. There is no demonstrated aneurysm of the [place] of [place]. There is no demonstrated abnormality of the visualized brain. AORTIC ARCH: There is atherosclerotic calcific plaque formation of the aortic arch and great vessels arising from the aortic arch, without a hemodynamically significant stenosis. There is retroesophageal right subclavian artery. RIGHT CAROTID ARTERIES: Normal right common carotid artery (CCA). There is mild atherosclerotic plaque formation with minimal narrowing of the right carotid bulb. Normal origin of the right internal carotid (ICA) artery without a hemodynamically significant stenosis. Normal visualized cervical portion of the right internal carotid artery. Normal origin of the right external carotid artery (ECA). LEFT CAROTID ARTERIES: Normal left common carotid artery (CCA). There is mild atherosclerotic plaque formation with minimal narrowing of the left carotid bulb. Normal origin of the left internal carotid (ICA) artery without a hemodynamically significant stenosis. Normal visualized cervical portion of the left internal carotid artery. Normal origin of the left external carotid artery (ECA). VERTEBRAL ARTERIES: Normal bilateral vertebral arteries. CT/CTA Head AND Neck W/ Contrast IMPRESSION: No significant stenosis of the cervical arteries. There is no evidence of intracranial large vessel occlusion. N.B. : The above information has been verbally conveyed by Tiffany Jacobsen to Jermain Lion [phone], on 12/20/2019 13:43:09 (ET). Electronically Signed: Tiffany Jacobsen, at 13:50 EDT Tel , Service support ,
--- NOTE | 2019-12-20 12:40 | CM.ED ---
SOCIAL WORK Responded to Stroke Alert. Stroke team in with patient completing work up. This worker to remain available for needs. Felisha Brock, P[employer] BARN MANAGER, LOADER
[2019-12-20 12:41] LABS: Absolute Lymphocyte Count 1.44 X10^3/uL (0.83-4.51); Absolute Neutrophil Count 4.1 X10^3/uL (2.0-7.7); Basophil# 0.02 X10^3/uL; Basophil% 0.3 % (0-1); Eosinophil# 0.09 X10^3/uL; Eosinophils% 1.4 % (0-5); Hematocrit 47.4 % (40-54); Hemoglobin 15.4 g/dL (13.0-16.5); Lymphocyte # 1.44 X10^3/ul (4.0); Lymphocyte % 22.7 % (19-41); Mean Corp Hgb Conc 32.5 g/dL (32-36); Mean Corpuscular Hgb 28.8 pg (27.0-32.0); Mean Corpuscular Volume 88.6 fL (80-94); Mean Platelet Vol. 12.3 fl (6.2-12.0); Monocyte# 0.66 X10^3/uL; Monocyte% 10.4 % (0-10); NRBC Flagged by Analyzer 0 % (0-5); Neutrophil # 4.12 X10^3/uL (2.7-7.7); Platelet Count 135 K/mm3 (150-450); RBC Distribution Width CV 13.9 % (11.6-14.6); RBC Distribution Width SD 45.1 fl (35.1-43.9); Red Blood Count 5.35 M/mm3 (4.6-6.2); White Blood Count 6.3 K/mm3 (4.4-11.0)
[2019-12-20 12:51] LABS: Prothrombin Time (Protime)PT. 13.1 SECONDS (11.7-14.9)
[2019-12-20 12:52] LABS: Partial Thromboplast Time 31.2 Seconds (24.1-36.2)
--- NOTE | 2019-12-20 13:00 | RAD_ITS ---
STUDY: X-RAY CHEST REASON FOR EXAM: Male, 74 years old. and quot;numbness and tingling on left of face starting yesterday at noon. numbness down left arm and leg starting 1100 today. Pt now states he is feeling nauseous. and quot; TECHNIQUE: Single AP portable view of the chest. COMPARISON: 12/04/2019. FINDINGS: The lungs are clear and expanded. There is bilateral pleural thickening most likely due to prominent extrapleural fat. Normal size heart. Normal mediastinum and melanie. Normal visualized pulmonary arteries. There is atherosclerotic calcification of the aortic arch with tortuosity. There are diffuse degenerative changes of the visualized thoracic spine. There is degenerative osteoarthritis of the bilateral shoulders. There is no demonstrated abnormality of the visualized soft tissue structures of the upper abdomen. RAD/Chest 1 View IMPRESSION: Degenerative changes, as described above. No demonstrated acute cardiopulmonary process. Electronically Signed: Tiffany Jacobsen, at 14:39 EDT Tel , Service support ,
[2019-12-20 13:03] LABS: Anion Gap 5 (5-15); BUN 16 mg/dL (7-18); Chloride 105 mmol/L (98-107); Creatinine, Serum 1.33 mg/dL (0.70-1.30); EST Glomerular Filtration Rate 56 mL/min (>60); Est Glom Filt Rate - Afr Amer 68 mL/min (>60); Estimated Creatinine Clearance 48.73 ml/min; Glucose 222 mg/dL (74-106); Potassium 4.7 mmol/L (3.5-5.1); Sodium Level 139 mmol/L (136-145)
[2019-12-20 13:06] LABS: Bedside Glucose 209 mg/dL (70-110)
--- NOTE | 2019-12-20 13:21 | ED.DCSUM_ITS ---
- ER Visit Summary Date of Service: 12/20/19 Chief Complaint: [Paresthesias to left face and left side of his body] History of Present Illness: The patient is a 74 M [presents to the emergency department with paresthesias that started to his left face approximately noon yesterday. Patient states that the paresthesias progressively became more significant and worsen until the evening.] Patient states that about 10:30 AM this morning he started having paresthesias to the left arm and left leg. Patient feels like the left leg was not working right. He denies any difficulty with vision or speech. Patient does have history of TIA, coronary artery disease, COPD, diabetes, hypertension, cholesterol, chronic kidney disease. Patient currently on Plavix and aspirin. He denies any falls or head injuries. He denies headache. Physical Examination: [HEENT-PERRLA, EOMI. Cranial nerves II through XII grossly intact. TMs clear. Mucous membranes moist. No adenopathy. Cardiovascular-regular rate and rhythm without murmur or ectopy Lungs-clear to auscultation, chest wall stable without crepitus or subcu emphysema Abdomen-normoactive bowel sounds, soft, nontender, no rebound or rigidity, no peritoneal signs. Neuro exam-NIH stroke scale was a 2 for some subtle weakness in his left leg and paresthesias. [id number] and heel manning testing within normal limits. Babinski is downgoing bilaterally. Patient has decreased sensation to the left side arm and leg compared to the right. Extremities-intact ?4, normal range of motion, normal pulses, atraumatic] Test Results: [EKG obtained on arrival shows sinus rhythm with a ventricular rate of 56 bpm with no acute ST segment changes. CBC with differential was unremarkable. Chemistries unremarkable. Troponin was less than 0.015. CT of the brain showed nothing acute. CTA of the head and neck showed no large vessel occlusions.] Emergency Department Course and Treatment: [IV line established on arrival. Stroke team was called on arrival. Patient case discussed with neurology from [facility] who recommended that patient not a TPA candidate due to the length of onset of symptoms.] Treatment Plan: [Admit] Disposition: [Admit] Impression: [CVA] This note was generated with [employer] dictation software. It may contain incorrect words, spelling, and punctuation that were not noted in review of the chart prior to signing ED Disposition - Plan for ED Patient: Referrals: Victor M Luke DO [Primary Care Provider] -
[2019-12-20] MEDS: 0.9% Normal Saline 1,000 ML 100 ML IV (13:35)
--- NOTE | 2019-12-20 14:06 | PCM.HP.STD ---
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 Patient has had angioplasty and drug-eluting stenting with a small 2.25 mm stent several its ago. 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 Alexandr Mcclain (5) 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, stage 3 Status: Chronic (6) TIA (transient ischemic attack) Status: Chronic (7) Type 2 diabetes mellitus without complications Status: Chronic Qualifiers: (8) Hypertension Status: Chronic Qualifiers: (9) Hyperlipidemia Status: Chronic Qualifiers: History of Present Illness Date of Admission: 12/20/19 Chief Complaint: Numbness and tingling on the left side of the face and body, left-sided body weakness. The patient is a 74 year old M with multiple medical comorbidities as mentioned above presented to the emergency room because of paresthesias on the left face, left arm and leg as well as left-sided body weakness. Symptoms started 4 days ago with significant numbness and tingling on the left side of his face, was persistent and constant, no associated symptoms and since this morning, this numbness and tingling starting down to his left arm and left leg. He mentioned that tingling and numbness has been progressive, involving the whole left upper and left lower extremities and continued on the left face as well, associated with increasing weakness of the left upper and lower extremities but it is more prominent on the left leg. He denied slurred speech or blurred vision. He denied headache, dizziness or lightheadedness. He did mention that he was not able to use his left leg today morning. He had a history of TIAs in the past. He complained of right-sided chest pain that has been going on for several days for which he had a stress echocardiogram yesterday as outpatient that was normal, adequate dobutamine echocardiogram that was negative for ischemia by EKG and echocardiographic criteria. In the emergency department, his blood pressure was slight elevated, other vital signs were stable. His routine blood work revealed mild chronic thrombocytopenia, creatinine of 1.33 which is also chronic, otherwise unremarkable. EKG revealed sinus bradycardia, heart rate has been in the high 50s, no acute segment changes. Troponin was negative. CT scan brain without contrast showed no acute infarct or hemorrhage. CTA of the head and neck revealed no evidence of significant stenosis of the cervical arteries or intracranial large vessel occlusion. His NIH stroke scale in the ED was 2 but he was not a candidate for TPA because symptoms started 4 days ago. He is being admitted for left-sided body paresthesia/weakness which likely due to TIA versus acute stroke. 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 Patient has had angioplasty and drug-eluting stenting with a small 2.25 mm stent several its ago. 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 Procedure aborted. 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 Procedure aborted. No complications. 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 Procedure aborted. 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 [Ecotrin] 81 mg PO DAILY@0800 01/21/17 fluoxetine 40 mg capsule 40 mg PO DAILY 90 Days #90 cap 09/21/18 mirtazapine 15 mg tablet 15 mg PO QHS tab 05/22/19 Cyanocobalamin (Vitamin B-12) 1,000 mcg PO DAILY #0 06/01/19 [Vitamin B-12] Ergocalciferol (Vitamin D2) 50 mcg PO DAILY #0 06/01/19 [Vitamin D2] clopidogrel 75 mg tablet 75 mg PO DAILY #90 tab 07/07/19 potassium chloride 20 mEq 40 meq PO BID #360 tab 07/31/19 tablet,extended release(part/cryst) spironolactone 25 mg tablet 25 mg PO DAILY #90 tab 07/31/19 isosorbide mononitrate 60 mg 60 mg PO BID #180 tab 12/04/19 tablet,extended release 24 hr nitroglycerin 0.4 mg sublingual 0.4 mg SUBLINGUAL Q5-15M PRN #25 12/04/19 tablet tab amlodipine 10 mg tablet 10 mg PO DAILY tab 12/05/19 furosemide 40 mg tablet 80 mg PO DAILY #180 tab 12/05/19 magnesium oxide 400 mg (241.3 mg 400 mg PO DAILY tab 12/05/19 magnesium) tablet Atorvastatin Calcium [Lipitor] 40 mg PO QHS 12/20/19 Glimepiride [Amaryl] 2 mg PO DAILY 12/20/19 Metoprolol Tartrate 25 mg PO BID 12/20/19 Pantoprazole Sodium [Protonix] 40 mg PO DAILY 12/20/19 Surgical History: Surgical History (Last Reviewed 12/05/19 @ 11:29 by PARISH Chase) History of percutaneous transluminal coronary angioplasty (Chronic) Onset Date: 08/18/18 Z98.61 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 Procedure aborted. No complications. 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 Psychiatric History: Anxiety, Depression Lives: Spouse/ Significant Other Smoking Status: Former smoker Alcohol: None Drugs: None - *Family History Maternal History Items: - - Denies maternal cardiac history Paternal History Items: - - Father with a history of Parkinson's disease and prostate cancer Review of Systems Constitutional: Denies: Anorexia, Chills, Fever, Weakness Eyes: Denies: Blurred vision, Double vision, Drainage, Redness HEENT: Denies: Difficulty Hearing, Dysphasia, Ear Pain, Eye Pain, Head Aches, Nasal Congestion, Sore Throat Cardiovascular: Reports: Chest Pain - Right-sided chest pain.. Denies: Chest Pressure, Chest Tightness, Palpitations, Syncope Respiratory: Denies: Cough, Hemoptysis, Pleuritic Pain, Shortness of Breath, Sputum production, Wheezing Gastrointestinal: Denies: Abdominal Pain, Constipation, Diarrhea Genitourinary: Denies: Dysuria, Frequency, Hematuria Musculoskeletal: Denies: Arm Pain, Back Pain, Foot Pain Skin: Denies: Dryness, Rash Neurological: Reports: Focal weakness, Numbness, Tingling. Denies: Balance problems, Blurred vision, Double vision, Change in Speech, Slurred speech, Confusion, Headaches Psychiatric: Denies: Anxiety, Depression Endocrine: Denies: Change in Body Habitus, Polydipsia, Polyuria VTE Information - Inpt Only VTE Present on Admission: No VTE Mechan Device Prophylaxis: None VTE Pharm Prophylaxis ordered?: Yes - Physical Exam Vitals/I&O's: Vital Signs Temp Pulse Resp BP Pulse Ox 98 F 56 L 19 H 152/71 H 97 12/20/19 13:41 12/20/19 13:41 12/20/19 13:41 12/20/19 13:41 12/20/19 13:41 Oxygen Delivery Method Room Air Weight: 237 lb 10.533 oz Body Mass Index (BMI) 35.1 Finger Stick Blood Glucose 209 General: Alert, Oriented x3, Cooperative, No apparent distress HEENT: Atraumatic, PERRLA, EOMI, Normocephalic Oral: Moist Mucosa, No Gingival or Mucosal Lesions/ Ulcerations Neck: Supple, No JVD, Negative Carotid Bruits Lungs: Clear to auscultation, Normal air movement, No rhonchi, No wheeze, No rales, Diminished Cardiovascular: Regular rate, Regular Rhythm, Normal S1, Normal S2, PMI Normal, Bradycardic Abdomen: Bowel Sounds Present, Soft, Non Tender, Non-Distended, No Hepato-splenomegaly Extremities: No clubbing, No cyanosis, Edema Skin: No rashes, No breakdown Lymphatic: No Cervical, Supraclavicular, or Inguinal Adenopathy Neurological: Cranial nerves II-XII grossly intact, - - Power on the left upper extremity is 4+ by 5, power on the left lower extremity is 2.5. Psych/Mental Status: Normal Affect, Appropriate, Alert and oriented to time, place, person, mood and affect Laboratory Results 12/20/19 12:21: POC Glucose 209 H 12/20/19 12:33: WBC 6.3, RBC 5.35, Hgb 15.4, Hct 47.4, MCV 88.6, MCH 28.8, MCHC 32.5, RDW Std Deviation 45.1 H, RDW Coeff of Adrian 13.9, Plt Count 135 L, MPV 12.3 H, Immature Gran % (Auto) 0.200, Neut % (Auto) 65.0, Lymph % (Auto) 22.7, Crook % (Auto) 10.4 H, Eos % (Auto) 1.4, Baso % (Auto) 0.3, Absolute Neuts (auto) 4.1, Absolute Lymphs (auto) 1.44, Nucleated RBC % 0 12/20/19 12:33: PT 13.1, INR 1.0, APTT 31.2 12/20/19 12:33: Sodium 139, Potassium 4.7, Chloride 105, Carbon Dioxide 29.0, Anion Gap 5, BUN 16, Creatinine 1.33 H, Estim Creat Clear Calc 48.73, Est GFR (MDRD) Af Amer 68, Est GFR (MDRD) Non-Af 56 L, BUN/Creatinine Ratio 12.0, Glucose 222 H, Calcium 9.0, Troponin I < 0.015 Clinical Impression(s) from Imaging Studies Brain CT 12/20/19 12:34 IMPRESSION: Chronic involutional changes of the brain. Electronically Signed: Tiffany Jacobsen, at 12:52 EDT Tel , Service support , ADDENDUM: 12/20/19 1331 IMPRESSION: Chronic involutional changes of the brain. N.B. : The above information has been verbally conveyed by Tiffany Jacobsen to Jermain Lion [phone], on 12/20/2019 13:24:43 (ET). Electronically Signed: Tiffany Jacobsen at 12:52 EDT Tel , Service support , Head/Neck CTA 12/20/19 12:35 IMPRESSION: No significant stenosis of the cervical arteries. There is no evidence of intracranial large vessel occlusion. N.B. : The above information has been verbally conveyed by Tiffany Jacobsen to Jermain Lion [phone], MD, on 12/20/2019 13:43:09 (ET). Electronically Signed: Tiffany Jacobsen at 13:50 EDT Tel , Service support , ADDENDUM: 12/20/19 1357 IMPRESSION: No significant stenosis of the cervical arteries. There is no evidence of intracranial large vessel occlusion. N.B. : The above information has been verbally conveyed by Tiffany Jacobsen to Jermain Lion [phone], MD, on 12/20/2019 13:43:09 (ET). Electronically Signed: Tiffany Jacobsen at 13:50 EDT Tel , Service support , Current Medications Sodium Chloride () 1,000 mls @ 100 mls/hr IV .Q10H ONE Stop: 12/20/19 22:34 Last Admin: 12/20/19 13:35 Dose: 100 mls/hr Documented by: Labetalol HCl (Trandate) 20 mg IV X1 PRN PRN Reason: BLOOD PRESSURE Assessment/Plan This is a 74 years old male patient presented to the emergency room because of left-sided body paresthesia and weakness and is being admitted for evaluation for possible TIA versus acute stroke. #1 Left-sided body paresthesia/left-sided weakness: CT brain reviewed as above as well as CTA head and neck. EKG revealed bradycardia, otherwise normal. Routine blood work was at baseline. Patient was not a candidate for TPA because symptoms started 4 days ago. Plan: Admit to PCU for observation, cardiac monitoring, NIH stroke scale, MRI brain, 2D echocardiogram, continue aspirin, Plavix and statins, gentle IV fluids for hydration, Tylenol PRN, Zofran PRN, repeat CBC and BMP tomorrow morning, reconsult [facility] tele-neurology if MRI brain came back positive for stroke, PT OT evaluation and treatment. Patient complained of right-sided chest pain that has been going on for several days. EKG and troponin was unremarkable as above. He had stress echocardiogram that was done yesterday as outpatient and was unremarkable without evidence of ischemia by EKG or echocardiographic criteria. #2 CAD status post stents: EKG and troponin was unremarkable as above. Plan as above, continue aspirin, statins, Plavix, nitrate and metoprolol. #3 COPD: Clinically stable, pulse ox is maintained on room air. Chest x-ray showed no acute findings. Plan for albuterol PRN. #4 stage III chronic kidney disease: Baseline creatinine has been around 1.3 to 1.5 mg/dL. Admission creatinine is 1.33, stable at baseline. #5 type 2 diabetes mellitus: ADA diet, Accu-Cheks, insulin sliding scale, continue glimepiride. #6 hypertension: Blood pressure slightly elevated, continue Norvasc, nitrate and metoprolol. Will allow permissive hypertension at this time. #7 chronic CHF, unspecified: Clinically stable, compensated. Continue Aldactone, metoprolol and nitrate and Lasix. #8 hyperlipidemia: Continue statins. #9 DVT prophylaxis: Subcu heparin. This note was generated with [employer]ar[employer] dictation software. It may contain incorrect words, spelling, and punctuation that were not noted in checking the note before signing. OBSV E&M: [id number] Initial observation care L3
--- NOTE | 2019-12-20 14:29 | MRI_ITS ---
STUDY: MRI BRAIN WITHOUT CONTRAST REASON FOR EXAM: Male, 74 years old. left leg paralysis, numbness/tingling 4 days prior TECHNIQUE: Standardized multiplanar fat and water weighted pulse sequences were obtained. COMPARISON: 10/02/2013 FINDINGS: Normal size of the ventricles and extra-axial spaces for the patient''s age. There are a limited number of small white matter hyperintensities, distributed throughout the deep white matter tracts of the cerebral hemispheres, consistent with mild chronic white matter ischemic changes. Normal bilateral basal ganglia. Normal thalami. There is no extra-axial fluid accumulation. Normal flow voids within the major intracranial circulation suggesting patency by spin echo criteria. Normal sella turcica, pituitary gland, infundibular stalk, optic chiasm and hypothalamus. Normal tectal plate and pineal gland. Normal midbrain, yasmeen and medulla. Normal cerebellum. Normal basal cisterns. Left mastoid sinus disease. Normal bilateral internal auditory canals. No demonstrated orbital abnormality, within the constraints of a routine brain study. Normal visualized paranasal sinuses. Normal calvarium and skull base. Normal visualized soft tissue structures. Normal visualized upper cervical spine. MRI/Brain without Contrast IMPRESSION: No evidence of acute infarct or hemorrhage. Electronically Signed: Sang Gaitan MD at 17:13 EDT Tel , Service support ,
--- NOTE | 2019-12-20 14:29 | ECHOCS_ITS ---
Reason For Study: TIA/CVA Procedure This was a 2D Doppler, Color Flow transthoracic echocardiogram. The study was technically difficult. Exam performed portable in patient room. Left Ventricle Normal LV size. The estimated ejection fraction is 65 %. No evidence for diastolic dysfunction. No regional wall motion abnormalities noted. Right Ventricle Normal RV size. Normal systolic function. Atria Normal left atrium. Normal right atrium. No doppler evidence for ASD. Mitral Valve There is no mitral valve stenosis. No mitral valve insufficiency. Tricuspid Valve There is no tricuspid stenosis. Unable to estimate RV systolic pressure due to inadequate jet, pulmonary artery pressure probably normal. No tricuspid valve insufficiency. Aortic Valve Trisinus/trileaflet aortic valve. Aortic sclerosis, no stenosis. There is no aortic stenosis. No aortic valve insufficiency. Pulmonic Valve There is no pulmonic valvular stenosis. No pulmonic valve insufficiency. Great Vessels Normal aortic root. Pericardium/Pleural No pericardial effusion. Medication Diluted definity 1ml given slow IV push to enhance endocardial definition. Negative bubble study on previous echo. MMode/2D Measurements & Calculations LVIDd: 5.2 cm IVSd: 1.1 cm Ao root diam: 3.0 cm LVIDs: 2.8 cm LVPWd: 0.96 cm RVDd: 3.0 cm FS: 46.4 % LAV(MOD-bp): 58.0 ml LA A4 area: 18.5 cm2 LA dimension(2D): 3.8 cm LAV(MOD-bp) Indexed: 26.2 ml/m2 LAV(MOD-sp2): 59.5 ml LAV(MOD-sp4): 51.7 ml RA A4 area: 13.3 cm2 Doppler Measurements & Calculations MV E max nicho: 79.8 cm/sec Lat Peak E' Nicho: 9.9 cm/sec Med Peak E' Nicho: 7.8 cm/sec MV A max nicho: 79.3 cm/sec E/E' lat: 8.1 E/E' med: 10.2 MV E/A: 1.0 Ao V2 max: 196.9 cm/sec LV V1 max: 133.3 cm/sec PA V2 max: 140.4 cm/sec Ao max P.5 mmHg LV V1 max P.1 mmHg Interpretation Summary The estimated ejection fraction is 65 %. No evidence for diastolic dysfunction. The study was technically difficult. Contrast injection was performed. Ordering Physician: Miriam Wilks Referring Physician: Victor M Luke Performed By: Kimberlee Everett RDCS
[2019-12-20] MEDS: 0.9% Normal Saline 1,000 ML 75 ML IV (14:59)
--- NOTE | 2019-12-20 15:00 | CASEMGMT ---
ALEX SANTOS called to room by nursing as pt has some questions regarding OBS status. This RN CM to room and is at bedside with pt. Pt does inquire about OBS status at this time and this ALEX SANTOS explained OBS vs IP at this time and that UM/CM are constantly monitoring status, voices understanding. Pt then states concerns about paying for his meds as he is OBS status and [facility] will not cover meds if OBS. Pt then states that he already paid for meds but 'you won't let me use the meds I already paid for.' Pt then states that the last time he was here 'a chris that was higher up in the pharmacy told me that if [facility] didn't pay for my meds during my OBS stay that [facility] would take care of it for me.' states that she has the card for this person from pharmacy at home and she will bring in tomorrow. This RN CM advised pt/ that will f/u with pharmacy in regards to same tomorrow, voice understanding. Pt/ voice no further questions/concerns/needs at this time. [place] ALEX SANTOS
[2019-12-20] MEDS: Acetaminophen 325 MG Tablet 650 MG PO ×2 (15:10→22:11)
[2019-12-20] MEDS: 0.9% Saline Lock 10 ML Syringe IV (15:29)
[2019-12-20] MEDS: LORazepam 2 MG/ML Syringe 1 MG IV (15:29)
[2019-12-20] MEDS: Insulin Lispro 100 UNIT/ML INSULN.PEN SC ×2 (16:42→20:52)
[2019-12-20 16:56] LABS: Bedside Glucose 158 mg/dL (70-110)
[2019-12-20 21:01] LABS: Bedside Glucose 265 mg/dL (70-110)
--- NOTE | 2019-12-20 21:20 | PCM.PN.BLA ---
Progress Note Because of bradycardia will change Lopressor from 25 mg twice daily to 12.5 mg twice daily. STROKE Vital Signs/Narrative: Vital Signs Temp Pulse Resp BP Pulse Ox 12/20/19 20:45 98.0 F 55 L 18 142/78 H 95 12/20/19 18:59 53 L
[2019-12-20] MEDS: Isosorbide Mononitrate 60 MG Tablet PO (22:02)
[2019-12-20] MEDS: Metoprolol Tartrate 25 MG Tablet 12.5 MG PO (22:02)
[2019-12-20] MEDS: Mirtazapine 15 MG Tablet PO (22:02)
[2019-12-20] MEDS: Heparin Injection (Vial) 5,000 UNIT/ML VIAL 5000 UNIT SC (22:02)
[2019-12-20] MEDS: Atorvastatin Calcium 80 MG Tablet PO (22:02)
[2019-12-21] VITALS (13 sets, daily range): BP systolic 124–145; BP diastolic 69–87; PULSE 43–71; RESP 16–18; TEMP 36.4–37.2; O2SAT 93–96; BMI 34.7
[2019-12-21 05:35] LABS: Absolute Lymphocyte Count 1.94 X10^3/uL (0.83-4.51); Absolute Neutrophil Count 3.1 X10^3/uL (2.0-7.7); Basophil# 0.03 X10^3/uL; Basophil% 0.5 % (0-1); Eosinophil# 0.15 X10^3/uL; Eosinophils% 2.6 % (0-5); Hematocrit 42.6 % (40-54); Hemoglobin 13.7 g/dL (13.0-16.5); Lymphocyte # 1.94 X10^3/ul (4.0); Lymphocyte % 33.3 % (19-41); Mean Corp Hgb Conc 32.2 g/dL (32-36); Mean Corpuscular Hgb 28.8 pg (27.0-32.0); Mean Corpuscular Volume 89.5 fL (80-94); Mean Platelet Vol. 12.4 fl (6.2-12.0); Monocyte% 10.3 % (0-10); NRBC Flagged by Analyzer 0 % (0-5); Neutrophil # 3.09 X10^3/uL (2.7-7.7); Neutrophil % 53.1 % (47-70); Platelet Count 124 K/mm3 (150-450); RBC Distribution Width CV 13.9 % (11.6-14.6); Red Blood Count 4.76 M/mm3 (4.6-6.2); White Blood Count 5.8 K/mm3 (4.4-11.0)
[2019-12-21 05:49] LABS: Anion Gap 3 (5-15); BUN 14 mg/dL (7-18); BUN/Creat Ratio 12.2 RATIO (10-20); Calcium,Total 8.1 mg/dL (8.5-10.1); Chloride 109 mmol/L (98-107); Creatinine, Serum 1.15 mg/dL (0.70-1.30); EST Glomerular Filtration Rate 66 mL/min (>60); Est Glom Filt Rate - Afr Amer 80 mL/min (>60); Estimated Creatinine Clearance 56.36 ml/min; Glucose 129 mg/dL (74-106); Potassium 4.1 mmol/L (3.5-5.1); Sodium Level 139 mmol/L (136-145)
[2019-12-21 07:01] LABS: Bedside Glucose 133 mg/dL (70-110)
[2019-12-21] MEDS: Glimepiride 2 MG Tablet PO (08:47)
[2019-12-21] MEDS: 0.9% Saline Lock 10 ML Syringe IV (08:47)
[2019-12-21] MEDS: Aspirin E.C. 81 MG Tablet PO (08:47)
--- NOTE | 2019-12-21 09:58 | MRI_ITS ---
STUDY: MRI LUMBAR SPINE WITHOUT CONTRAST REASON FOR EXAM: Male, 74 years old. L leg paresthesias, NO PAIN TECHNIQUE: Standardized fat and water weighted pulse sequences were obtained in the sagittal and axial planes. COMPARISON: 07/23/2010 report only FINDINGS: T12-L1: Normal endplates. Normal disc height, hydration and morphology. Normal bilateral facet joints. Normal central canal and bilateral lateral recesses. Normal bilateral intervertebral neural foramina. Normal lumbar lordosis. There is no substantial scoliosis. Normal conus medullaris that terminates at the L1 level. L1-2: Bulging annulus and bilateral facet hypertrophy without compressive sequelae. L2-3: Bulging annulus and bilateral facet hypertrophy with mild right foraminal stenosis. L3-4: Bulging annulus and bilateral facet hypertrophy with moderate bilateral foraminal stenoses. L4-5: Bulging annulus and bilateral facet hypertrophy with moderate bilateral foraminal stenoses. L5-S1: Bulging annulus and bilateral facet hypertrophy without compressive sequelae. Incidental S2 hemangioma. Normal visualized paraspinous soft tissue structures. Left renal cysts. MRI/Spine Lumbar (Routine) IMPRESSION: Multilevel degenerative disease as described. Moderate bilateral foraminal stenoses at the L3-4 and L4-5 levels. Electronically Signed: Sang Gaitan MD at 17:22 EDT Tel , Service support ,
--- NOTE | 2019-12-21 09:58 | MRI_ITS ---
STUDY: MRI CERVICAL SPINE WITHOUT CONTRAST REASON FOR EXAM: Male, 74 years old. NUMBNESS/TINGLING ; LEFT SIDED LEG WEAKNESS TECHNIQUE: Standardized fat and water weighted pulse sequences were obtained in the sagittal and axial planes. COMPARISON: None FINDINGS: Normal foramen magnum and brainstem-cervical cord junction. Normal craniovertebral junction. Normal anterior atlantoaxial articulation. Normal odontoid process. Normal cervical lordosis. Anterior surgical fusions of C4, C5, and C6 are present. C2-3: Disc osteophyte complex and bilateral facet hypertrophy with moderate bilateral foraminal stenoses. C3-4: Disc osteophyte complex and bilateral facet hypertrophy with severe right and moderate left foraminal stenoses. C4-5: No significant residual compressive sequelae. C5-6: No significant residual compressive sequelae. C6-7: Disc osteophyte complex and bilateral facet hypertrophy with mild central canal stenosis and severe bilateral foraminal stenoses. C7-T1: Disc osteophyte complex without compressive sequelae. Normal cervical cord. Normal visualized soft tissue structures. MRI/Spine Cervical (Routine) IMPRESSION: Multilevel degenerative disease and postoperative change as described. Severe foraminal stenoses on the right at C3-4 and bilaterally at C6-7. Electronically Signed: Sang Gaitan MD at 17:22 EDT Tel , Service support ,
--- NOTE | 2019-12-21 10:19 | CASEMGMT ---
Addendum entered by Jacque Myers 12/21/19 11:15: Per tiffany Owen, Buster from pharmacy states he did talk to pt but states pt was already inpt at the time he spoke to him and that he did tell pt meds would be covered as he was inpt at that time. Pt updated on all at this time, voices understanding but is upset that he feels it was communicated wrong to him. Apologies given by this RN CM at this time, pt voices understanding. Pt states that he should just be changed to inpt as therapy said he needs a few more days. This RN CM did speak with therapy at this time and they state that pt was unable to ambulate at this time. Donnell LATIF updated at this time, voices understanding. Lawanda JOHNSON CM Original Note: This RN CM spoke with tiffany Owen, in regards to discussion with pt/ yesterday about OBS status and med coverage. Lexie voices understanding and states she will check with Buster in the pharmacy in regards to same at this time. Lawanda JOHNSON CM
[2019-12-21] MEDS: Magnesium Oxide 400 MG Tablet PO (10:23)
[2019-12-21] MEDS: FLUoxetine 20 MG Capsule 40 MG PO (10:23)
[2019-12-21] MEDS: amLODIPine 10 MG Tablet PO (10:23)
[2019-12-21] MEDS: Pantoprazole Sodium 40 MG Tablet PO (10:23)
[2019-12-21] MEDS: Furosemide 40 MG Tablet 80 MG PO (10:23)
[2019-12-21] MEDS: Clopidogrel Bisulfate 75 MG Tablet PO (10:23)
[2019-12-21] MEDS: Isosorbide Mononitrate 60 MG Tablet PO ×2 (10:24→21:42)
[2019-12-21] MEDS: Spironolactone 25 MG Tablet PO (10:24)
[2019-12-21] MEDS: Metoprolol Tartrate 25 MG Tablet 12.5 MG PO ×2 (10:24→21:41)
[2019-12-21] MEDS: Heparin Injection (Vial) 5,000 UNIT/ML VIAL 5000 UNIT SC ×2 (10:29→21:40)
--- NOTE | 2019-12-21 10:36 | PCM.PN.HOSP ---
Reason for Visit: weakness. Subjective: Still with left sided weakness. Cannot move LLE. Vitals/I&O's: Vital Signs Temp Pulse Resp BP Pulse Ox 36.8 C 64 18 132/72 H 96 12/21/19 10:20 12/21/19 10:24 12/21/19 10:20 12/21/19 10:24 12/21/19 10:20 Oxygen Delivery Method Room Air Weight: 107.1 kg Body Mass Index (BMI) 34.7 Finger Stick Blood Glucose 209 Intake and Output for Last 24 Hours 12/19/19 12/20/19 12/21/19 23:59 23:59 23:59 Intake Total 670 / 992 1322 / 1322 Output Total 450 / 1475 1470 / 1470 Balance 220 / -483 -148 / -148 General: Alert, No apparent distress HEENT: Atraumatic, Normocephalic Oral: Moist Mucosa, No Gingival or Mucosal Lesions/ Ulcerations Neck: No Nodes, Thyroid Normal Size and Texture Lungs: Clear to auscultation, Normal air movement, No rhonchi, No wheeze Cardiovascular: Regular rate, Regular Rhythm, Normal S1, Normal S2 Abdomen: Bowel Sounds Present, Soft, Non Tender, Non-Distended, No Hepato-splenomegaly Extremities: No edema, No Calf Tenderness Skin: No rashes, No breakdown Musculoskeletal: No Tenderness to Palpation of Joints or Extremities, No Muscle Wasting Neurological: - - MS 0/5 in LLE, 5/5 in BUE and RLE. Slight ataxia of LUE Psych/Mental Status: Normal Affect, Appropriate Laboratory Results 12/20/19 12:21: POC Glucose 209 H 12/20/19 12:33: WBC 6.3, RBC 5.35, Hgb 15.4, Hct 47.4, MCV 88.6, MCH 28.8, MCHC 32.5, RDW Std Deviation 45.1 H, RDW Coeff of Adrian 13.9, Plt Count 135 L, MPV 12.3 H, Immature Gran % (Auto) 0.200, Neut % (Auto) 65.0, Lymph % (Auto) 22.7, [place] % (Auto) 10.4 H, Eos % (Auto) 1.4, Baso % (Auto) 0.3, Absolute Neuts (auto) 4.1, Absolute Lymphs (auto) 1.44, Nucleated RBC % 0 12/20/19 12:33: PT 13.1, INR 1.0, APTT 31.2 12/20/19 12:33: Sodium 139, Potassium 4.7, Chloride 105, Carbon Dioxide 29.0, Anion Gap 5, BUN 16, Creatinine 1.33 H, Estim Creat Clear Calc 48.73, Est GFR (MDRD) Af Amer 68, Est GFR (MDRD) Non-Af 56 L, BUN/Creatinine Ratio 12.0, Glucose 222 H, Calcium 9.0, Troponin I < 0.015 12/20/19 16:36: POC Glucose 158 H 12/20/19 20:51: POC Glucose 265 H 12/21/19 05:12: WBC 5.8, RBC 4.76, Hgb 13.7, Hct 42.6, MCV 89.5, MCH 28.8, MCHC 32.2, RDW Std Deviation 46.0 H, RDW Coeff of Adrian 13.9, Plt Count 124 L, MPV 12.4 H, Immature Gran % (Auto) 0.200, Neut % (Auto) 53.1, Lymph % (Auto) 33.3, [place] % (Auto) 10.3 H, Eos % (Auto) 2.6, Baso % (Auto) 0.5, Absolute Neuts (auto) 3.1, Absolute Lymphs (auto) 1.94, Nucleated RBC % 0 12/21/19 05:12: Sodium 139, Potassium 4.1, Chloride 109 H, Carbon Dioxide 27.0, Anion Gap 3 L, BUN 14, Creatinine 1.15, Estim Creat Clear Calc 56.36, Est GFR (MDRD) Af Amer 80, Est GFR (MDRD) Non-Af 66, BUN/Creatinine Ratio 12.2, Glucose 129 H, Calcium 8.1 L 12/21/19 06:55: POC Glucose 133 H Current Medications Acetaminophen (Tylenol) 650 mg PO Q6H PRN PRN PRN Reason: Pain Score 1-10/Temp > 100.7 F Last Admin: 12/20/19 22:11 Dose: 650 mg Documented by: Albuterol Sulfate (Ventolin Aerosols) 2.5 mg INHALATION Q4H PRN PRN PRN Reason: Shortness of breath, wheezing Amlodipine Besylate (Norvasc) 10 mg PO DAILY [facility] Last Admin: 12/21/19 10:23 Dose: 10 mg Documented by: Aspirin (Ecotrin) 81 mg PO DAILY@0800 [facility] Last Admin: 12/21/19 08:47 Dose: 81 mg Documented by: Atorvastatin Calcium (Lipitor) 80 mg PO QHS [facility] Last Admin: 12/20/19 22:02 Dose: 80 mg Documented by: Clopidogrel Bisulfate (Plavix) 75 mg PO DAILY [facility] Last Admin: 12/21/19 10:23 Dose: 75 mg Documented by: Fluoxetine HCl (Prozac) 40 mg PO DAILY [facility] Last Admin: 12/21/19 10:23 Dose: 40 mg Documented by: Furosemide (Lasix) 80 mg PO DAILY [facility] Last Admin: 12/21/19 10:23 Dose: 80 mg Documented by: Glimepiride (Amaryl) 2 mg PO DAILYCM [facility] Last Admin: 12/21/19 08:47 Dose: 2 mg Documented by: Heparin Sodium (Porcine) (Heparin Na) 5,000 unit SC Q12 [facility] Last Admin: 12/21/19 10:29 Dose: 5,000 unit Documented by: Sodium Chloride () 500 mls @ 15 mls/hr IV PRN PRN PRN Reason: Blood Transfusion Sodium Chloride () 250 mls @ 15 mls/hr IV .[id number] PRN PRN Reason: Saline Flush Sodium Chloride () 250 mls @ 15 mls/hr IV .[id number] PRN PRN Reason: Additional IVPB Infusion Insulin Human Lispro (Humalog Kwikpen (Bkc)) 0 unit SC ACHS [facility]; Protocol Last Admin: 12/21/19 06:56 Dose: Not Given Documented by: Isosorbide Mononitrate (Imdur) 60 mg PO BID [facility] Last Admin: 12/21/19 10:24 Dose: 60 mg Documented by: Magnesium Oxide (Mag-Ox 400) 400 mg PO DAILY [facility] Last Admin: 12/21/19 10:23 Dose: 400 mg Documented by: Metoprolol Tartrate (Lopressor (Beta Kale)) 12.5 mg PO BID [facility] Last Admin: 12/21/19 10:24 Dose: 12.5 mg Documented by: Mirtazapine (Remeron) 15 mg PO QHS [facility] Last Admin: 12/20/19 22:02 Dose: 15 mg Documented by: Ondansetron HCl (Zofran) 4 mg IV Q8H PRN PRN PRN Reason: NAUSEA/VOMITING Pantoprazole Sodium (Protonix) 40 mg PO DAILY [facility] Last Admin: 12/21/19 10:23 Dose: 40 mg Documented by: Senna/Docusate Sodium (Senokot-S, Kenyatta-Colace) 2 tablet PO BID PRN PRN PRN Reason: Constipation Sodium Chloride () 10 - 40 ml IV UD PRN PRN Reason: SALINE FLUSH Last Admin: 12/21/19 08:47 Dose: 10 ml Documented by: Spironolactone (Aldactone) 25 mg PO DAILY [facility] Last Admin: 12/21/19 10:24 Dose: 25 mg Documented by: Zolpidem Tartrate (Ambien (Generic)) 5 mg PO QHS PRN PRN PRN Reason: INSOMNIA STROKE Vital Signs/Narrative: Vital Signs Temp Pulse Resp BP Pulse Ox 12/21/19 10:24 64 132/72 H 12/21/19 10:20 36.8 C 64 18 132/72 H 96 12/21/19 08:30 36.4 C L 57 L 16 136/87 H 95 12/21/19 07:42 95 12/21/19 07:00 48 L Medical Necessity - Tobacco Use Smoking Status: Former smoker Assessment/Plan 1. L sided weakness: CVA work up negative, however, still with symptoms including his face. Will check MRI of cervical and lumbar spine. He states that he need lorazepam beforehand. echo unremarkable. 2. chest pain: had stress test on 12/18 that is negative. no further work up at this time. 3. VTE prophylaxis: SQ heparin. OBSV E&M: 25234 Subsequent observation care L3
[2019-12-21] MEDS: Insulin Lispro 100 UNIT/ML INSULN.PEN SC ×3 (11:58→21:40)
[2019-12-21 12:01] LABS: Bedside Glucose 281 mg/dL (70-110)
--- NOTE | 2019-12-21 12:35 | CASEMGMT ---
Social Work Spoke with pt to discuss patient's DC plans. Therapy recommending therapy prior to DC home. Pt agreed therapy didn't go well and agrees he can't go home. Explained RU - 3hrs of therapy, 2 day in room isolation, one designated visitor 4-8 pm after isolation and Medicare coverage. Pt agreeable to RU. Explained if RU does not accept, can discuss SNF. Explained SNF isolation, no visitors, and Medicare coverage. Pt understands. Pt requested SW contact to confirm RU referral. Spoke with and explained above. agreeable to RU referral. Referral made to RU. PHQ-9 completed per dx. SW to continue to follow. JOSE CARLOS Burton CATEGORY ANALYST
[2019-12-21] MEDS: LORazepam 1 MG Tablet PO (14:25)
[2019-12-21 16:25] LABS: Bedside Glucose 187 mg/dL (70-110)
[2019-12-21] MEDS: Zolpidem Tartrate 5 MG Tablet PO (21:40)
[2019-12-21] MEDS: Atorvastatin Calcium 80 MG Tablet PO (21:40)
[2019-12-21] MEDS: Mirtazapine 15 MG Tablet PO (21:41)
[2019-12-21] MEDS: Acetaminophen 325 MG Tablet 650 MG PO (21:48)
[2019-12-21 22:11] LABS: Bedside Glucose 185 mg/dL (70-110)
[2019-12-22] VITALS (7 sets, daily range): BP systolic 123–141; BP diastolic 65–85; PULSE 51–70; RESP 16–18; TEMP 36.4–37.1; O2SAT 90–95
[2019-12-22 06:41] LABS: Bedside Glucose 164 mg/dL (70-110)
[2019-12-22] MEDS: Aspirin E.C. 81 MG Tablet PO (08:25)
[2019-12-22] MEDS: 0.9% Saline Lock 10 ML Syringe IV (08:25)
[2019-12-22] MEDS: Glimepiride 2 MG Tablet PO (08:25)
[2019-12-22] MEDS: Magnesium Oxide 400 MG Tablet PO (09:12)
[2019-12-22] MEDS: Heparin Injection (Vial) 5,000 UNIT/ML VIAL 5000 UNIT SC (09:12)
[2019-12-22] MEDS: amLODIPine 10 MG Tablet PO (09:13)
[2019-12-22] MEDS: Isosorbide Mononitrate 60 MG Tablet PO (09:13)
[2019-12-22] MEDS: Pantoprazole Sodium 40 MG Tablet PO (09:13)
[2019-12-22] MEDS: Metoprolol Tartrate 25 MG Tablet 12.5 MG PO (09:13)
[2019-12-22] MEDS: Furosemide 40 MG Tablet 80 MG PO (09:13)
[2019-12-22] MEDS: Spironolactone 25 MG Tablet PO (09:13)
[2019-12-22] MEDS: Clopidogrel Bisulfate 75 MG Tablet PO (09:13)
[2019-12-22] MEDS: FLUoxetine 20 MG Capsule 40 MG PO (09:13)
--- NOTE | 2019-12-22 10:00 | DCINST_ITS ---
You will use the following diet at home:: No restrictions Your food should be the consistency of: Regular Discharge Activity: Return to Normal Activity Allergies/Adverse Reactions: Allergies No Known Allergies Allergy (Verified 12/20/19 12:15) Medications to take at Discharge Aspirin E.C. [Ecotrin] 81 mg PO DAILY@0800 01/21/17 fluoxetine 40 mg capsule 40 mg PO DAILY 90 Days #90 cap 09/21/18 mirtazapine 15 mg tablet 15 mg PO QHS tab 09/21/18 Cyanocobalamin (Vitamin B-12) [Vitamin B-12] 1,000 mcg PO DAILY #0 06/01/19 Ergocalciferol (Vitamin D2) [Vitamin D2] 50 mcg PO DAILY #0 06/01/19 clopidogrel 75 mg tablet 75 mg PO DAILY #90 tab 07/07/19 potassium chloride 20 mEq tablet,extended release(part/cryst) 40 meq PO BID #360 tab 07/31/19 spironolactone 25 mg tablet 25 mg PO DAILY #90 tab 07/31/19 isosorbide mononitrate 60 mg tablet,extended release 24 hr 60 mg PO BID #180 tab 12/04/19 nitroglycerin 0.4 mg sublingual tablet 0.4 mg SUBLINGUAL Q5-15M PRN #25 tab 12/04/19 amlodipine 10 mg tablet 10 mg PO DAILY tab 12/05/19 furosemide 40 mg tablet 80 mg PO DAILY #180 tab 12/05/19 magnesium oxide 400 mg (241.3 mg magnesium) tablet 400 mg PO DAILY tab 12/05/19 Atorvastatin Calcium [Lipitor] 40 mg PO QHS 12/20/19 Glimepiride [Amaryl] 2 mg PO DAILY 12/20/19 Metoprolol Tartrate 25 mg PO BID 12/20/19 Pantoprazole Sodium [Protonix] 40 mg PO DAILY 12/20/19 Insulin Lispro [Humalog KwikPen] See Protocol SUBCUT ACHS insuln.pen 12/22/19 Primary Care Physician: Victor M Luke DO [Primary Care Provider] - Within 2 Weeks Test Results: Test results from this visit will be discussed in further detail at your follow- up appointment, if applicable. Proposed Discharge Date: 12/22/19
--- NOTE | 2019-12-22 10:02 | DS.PCM_ITS ---
Discharge Date and Diagnosis Date of Admission: 12/20/19 Date of Discharge: 12/22/19 - Primary Discharge Diagnosis Acute Problems: 1. L sided weakness: * Etiology not clearly identified. No evidence of any stroke, nor any kind of radiculopathy. Patient has undergone CTA of the head, MRI of the brain, MRI of the cervical and lumbar spines which were all unremarkable. Exam has been inconsistent with other providers. Patient still not demonstrating any movement of his left lower extremity. Patient will be discharged to rehab to continue with the strengthening. 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 Patient has had angioplasty and drug-eluting stenting with a small 2.25 mm stent several its ago. 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 Alexandr Mcclain 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, stage 3 (Chronic) Obstructive sleep apnea (Chronic) TIA (transient ischemic attack) (Chronic) Atherosclerotic heart disease [place] coronary artery w/angina pectoris (Chronic) 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 Procedure aborted. Pt then went to 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 Procedure aborted. No complications. 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 Electronically Signed: Tiffany Jacobsen, at 12:52 EDT Tel , Service support , ADDENDUM: 12/20/19 1331 IMPRESSION: Chronic involutional changes of the brain. N.B. : The above information has been verbally conveyed by Tiffany Jacobsen to Jermain Lion [phone], on 12/20/2019 13:24:43 (ET). Electronically Signed: Tiffany Jacobsen, at 12:52 EDT Tel , Service support , Head/Neck CTA 12/20/19 12:35 IMPRESSION: No significant stenosis of the cervical arteries. There is no evidence of intracranial large vessel occlusion. N.B. : The above information has been verbally conveyed by Tiffany Jacobsen to Jermain Lion [phone], on 12/20/2019 13:43:09 (ET). Electronically Signed: Tiffany Jacobsen, at 13:50 EDT Tel , Service support , ADDENDUM: 12/20/19 1357 IMPRESSION: No significant stenosis of the cervical arteries. There is no evidence of intracranial large vessel occlusion. N.B. : The above information has been verbally conveyed by Tiffany Jacobsen to Jermain Lion [phone], on 12/20/2019 13:43:09 (ET). Electronically Signed: Tiffany Jacobsen, at 13:50 EDT Tel , Service support , Chest X-Ray 12/20/19 13:00 IMPRESSION: Degenerative changes, as described above. No demonstrated acute cardiopulmonary process. Electronically Signed: Tiffany Jacobsen, at 14:39 EDT Tel , Service support , Brain MRI 12/20/19 14:29 IMPRESSION: No evidence of acute infarct or hemorrhage. Electronically Signed: Sang Gaitan MD at 17:13 EDT Tel , Service support , Cervical Spine MRI 12/21/19 09:58 IMPRESSION: Multilevel degenerative disease and postoperative change as described. Severe foraminal stenoses on the right at C3-4 and bilaterally at C6-7. Electronically Signed: Sang Gaitan MD at 17:22 EDT Tel , Service support , Lumbar Spine MRI 12/21/19 09:58 IMPRESSION: Multilevel degenerative disease as described. Moderate bilateral foraminal stenoses at the L3-4 and L4-5 levels. Electronically Signed: Sang Gaitan MD at 17:22 EDT Tel , Service support , Operations: None Procedures: None Summary of Care Provided: The patient is a 74 year old M presents with left-sided weakness. Patient sta john that he has numbness face arm and leg and cannot move his leg. Patient underwent an extensive work-up which all came back negative. Is unclear what the etiology is but is certainly not a stroke nor any kind of radicular process. Patient will be discharged to rehab for further therapy and rehabilitation. [] - Physical Exam Vitals/I&O's: Vital Signs Temp Pulse Resp BP Pulse Ox 36.6 C 70 18 141/85 H 95 12/22/19 09:10 12/22/19 09:13 12/22/19 09:10 12/22/19 09:13 12/22/19 09:10 Oxygen Delivery Method Room Air Weight: 104.6 kg Body Mass Index (BMI) 34.7 Finger Stick Blood Glucose 209 Intake and Output for Last 24 Hours 12/20/19 12/21/19 12/22/19 23:59 23:59 23:59 Intake Total 670 / 992 2322 / 2322 150 / 150 Output Total 450 / 1475 4550 / 4550 225 / 225 Balance 220 / -483 -2228 / -2228 -75 / -75 General: Alert, No apparent distress HEENT: Atraumatic, Normocephalic Oral: Moist Mucosa, No Gingival or Mucosal Lesions/ Ulcerations Musculoskeletal: No Tenderness to Palpation of Joints or Extremities, No Muscle Wasting Neurological: - - Muscle strength 5-5 in the bilateral upper extremities and right lower extremity and 05 in the left lower extremity. Laboratory Results 12/21/19 11:56: POC Glucose 281 H 12/21/19 16:20: POC Glucose 187 H 12/21/19 21:38: POC Glucose 185 H 12/22/19 06:37: POC Glucose 164 H Current Medications Acetaminophen (Tylenol) 650 mg PO Q6H PRN PRN PRN Reason: Pain Score 1-10/Temp > 100.7 F Last Admin: 12/21/19 21:48 Dose: 650 mg Documented by: Albuterol Sulfate (Ventolin Aerosols) 2.5 mg INHALATION Q4H PRN PRN PRN Reason: Shortness of breath, wheezing Amlodipine Besylate (Norvasc) 10 mg PO DAILY [facility] Last Admin: 12/22/19 09:13 Dose: 10 mg Documented by: Aspirin (Ecotrin) 81 mg PO DAILY@0800 [facility] Last Admin: 12/22/19 08:25 Dose: 81 mg Documented by: Atorvastatin Calcium (Lipitor) 80 mg PO QHS [facility] Last Admin: 12/21/19 21:40 Dose: 80 mg Documented by: Clopidogrel Bisulfate (Plavix) 75 mg PO DAILY [facility] Last Admin: 12/22/19 09:13 Dose: 75 mg Documented by: Fluoxetine HCl (Prozac) 40 mg PO DAILY [facility] Last Admin: 12/22/19 09:13 Dose: 40 mg Documented by: Furosemide (Lasix) 80 mg PO DAILY [facility] Last Admin: 12/22/19 09:13 Dose: 80 mg Documented by: [facility] Last Admin: 12/22/19 08:25 Dose: 2 mg Documented by: Heparin Sodium (Porcine) (Heparin Na) 5,000 unit SC Q12 [facility] Last Admin: 12/22/19 09:12 Dose: 5,000 unit Documented by: Sodium Chloride () 500 mls @ 15 mls/hr IV PRN PRN PRN Reason: Blood Transfusion Sodium Chloride () 250 mls @ 15 mls/hr IV .[id number] PRN PRN Reason: Saline Flush Sodium Chloride () 250 mls @ 15 mls/hr IV .[id number] PRN PRN Reason: Additional IVPB Infusion Insulin Human Lispro (Humalog Kwikpen (Bkc)) 0 unit SC [facility]; Protocol Last Admin: 12/22/19 06:37 Dose: Not Given Documented by: Isosorbide Mononitrate (Imdur) 60 mg PO BID [facility] Last Admin: 12/22/19 09:13 Dose: 60 mg Documented by: Magnesium Oxide (Mag-Ox 400) 400 mg PO DAILY [facility] Last Admin: 12/22/19 09:12 Dose: 400 mg Documented by: Metoprolol Tartrate (Lopressor (Beta Kale)) 12.5 mg PO BID [facility] Last Admin: 12/22/19 09:13 Dose: 12.5 mg Documented by: Mirtazapine (Remeron) 15 mg PO QHS [facility] Last Admin: 12/21/19 21:41 Dose: 15 mg Documented by: Ondansetron HCl (Zofran) 4 mg IV Q8H PRN PRN PRN Reason: NAUSEA/VOMITING Pantoprazole Sodium (Protonix) 40 mg PO DAILY [facility] Last Admin: 12/22/19 09:13 Dose: 40 mg Documented by: Senna/Docusate Sodium (Senokot-S, Kenyatta-Colace) 2 tablet PO BID PRN PRN PRN Reason: Constipation Sodium Chloride () 10 - 40 ml IV UD PRN PRN Reason: SALINE FLUSH Last Admin: 12/22/19 08:25 Dose: 10 ml Documented by: Spironolactone (Aldactone) 25 mg PO DAILY [facility] Last Admin: 12/22/19 09:13 Dose: 25 mg Documented by: Zolpidem Tartrate (Ambien (Generic)) 5 mg PO QHS PRN PRN PRN Reason: INSOMNIA Last Admin: 12/21/19 21:40 Dose: 5 mg Documented by: Discharge Diet: No Restrictions Discharge Activity: Return to Normal Activity Home Medications: Medications to take at Discharge Aspirin E.C. [Ecotrin] 81 mg PO DAILY@0800 01/21/17 fluoxetine 40 mg capsule 40 mg PO DAILY 90 Days #90 cap 09/21/18 mirtazapine 15 mg tablet 15 mg PO QHS tab 09/21/18 Cyanocobalamin (Vitamin B-12) [Vitamin B-12] 1,000 mcg PO DAILY #0 06/01/19 Ergocalciferol (Vitamin D2) [Vitamin D2] 50 mcg PO DAILY #0 06/01/19 clopidogrel 75 mg tablet 75 mg PO DAILY #90 tab 07/07/19 potassium chloride 20 mEq tablet,extended release(part/cryst) 40 meq PO BID #360 tab 07/31/19 spironolactone 25 mg tablet 25 mg PO DAILY #90 tab 07/31/19 isosorbide mononitrate 60 mg tablet,extended release 24 hr 60 mg PO BID #180 tab 12/04/19 nitroglycerin 0.4 mg sublingual tablet 0.4 mg SUBLINGUAL Q5-15M PRN #25 tab 12/04/19 amlodipine 10 mg tablet 10 mg PO DAILY tab 12/05/19 furosemide 40 mg tablet 80 mg PO DAILY #180 tab 12/05/19 magnesium oxide 400 mg (241.3 mg magnesium) tablet 400 mg PO DAILY tab 12/05/19 Atorvastatin Calcium [Lipitor] 40 mg PO QHS 12/20/19 Glimepiride [Amaryl] 2 mg PO DAILY 12/20/19 Metoprolol Tartrate 25 mg PO BID 12/20/19 Pantoprazole Sodium [Protonix] 40 mg PO DAILY 12/20/19 Insulin Lispro [Humalog KwikPen] See Protocol SUBCUT ACHS insuln.pen 12/22/19 Primary Care Physician: Victor M Luke DO [Primary Care Provider] - Within 2 Weeks Disposition: Inpt Rehab Unit/Facility Minutes spent on discharge:: 28 Patient Condition:: Good Medical Necessity - Tobacco Use Smoking Status: Former smoker Meaningful Use Info Meaningful Use Diagnoses (Choose all that apply): None applicable Inpatient E&M: 82137 Disch Hosp
--- NOTE | 2019-12-22 10:03 | CASEMGMT ---
Social Work SW spoke with [facility] in Inpt Rehab and with Dr. Santos and pt is appropriate for RU and can be accepted today. SW met with pt and pt is aware of RU referral and agreeable to transfer. Pt stating his is aware of plan and agreeable. Plan: Rehab Unit, when medically ready ALISSON Reyes
--- NOTE | 2019-12-22 10:31 | PHA.DC.MR ---
Pharmacy Service has performed discharge medication reconciliation for this patient upon transfer to inpatient rehab. The patient's discharge medication list was reviewed for discrepancies and discrepancies were resolved. Home Medications Aspirin E.C. [Ecotrin] 81 mg PO DAILY@0800 01/21/17 fluoxetine 40 mg capsule 40 mg PO DAILY 90 Days #90 cap 09/21/18 mirtazapine 15 mg tablet 15 mg PO QHS tab 09/21/18 Cyanocobalamin (Vitamin B-12) [Vitamin B-12] 1,000 mcg PO DAILY #0 06/01/19 Ergocalciferol (Vitamin D2) [Vitamin D2] 50 mcg PO DAILY #0 06/01/19 clopidogrel 75 mg tablet 75 mg PO DAILY #90 tab 07/07/19 potassium chloride 20 mEq tablet,extended release(part/cryst) 40 meq PO BID #360 tab 07/31/19 spironolactone 25 mg tablet 25 mg PO DAILY #90 tab 07/31/19 isosorbide mononitrate 60 mg tablet,extended release 24 hr 60 mg PO BID #180 tab 12/04/19 nitroglycerin 0.4 mg sublingual tablet 0.4 mg SUBLINGUAL Q5-15M PRN #25 tab 12/04/19 amlodipine 10 mg tablet 10 mg PO DAILY tab 12/05/19 furosemide 40 mg tablet 80 mg PO DAILY #180 tab 12/05/19 magnesium oxide 400 mg (241.3 mg magnesium) tablet 400 mg PO DAILY tab 12/05/19 Atorvastatin Calcium [Lipitor] 40 mg PO QHS 12/20/19 Glimepiride [Amaryl] 2 mg PO DAILY 12/20/19 Metoprolol Tartrate 25 mg PO BID 12/20/19 Pantoprazole Sodium [Protonix] 40 mg PO DAILY 12/20/19 Insulin Lispro [Humalog KwikPen] See Protocol SUBCUT ACHS insuln.pen 12/22/19
--- NOTE | 2019-12-22 10:34 | NURSING ---
Report called to ALEX Stroud. Okay to bring patient over around 1100
[2019-12-22] MEDS: Insulin Lispro 100 UNIT/ML INSULN.PEN SC (11:04)
[2019-12-22 11:10] LABS: Bedside Glucose 288 mg/dL (70-110)
== END 2019-12-22 12:43 | DRG 92 ==
LOC: ED 12:31 → PCU 14:02
PROVIDERS: Admitting Provider Hospitalist; Emergency Provider Emergency Medicine; PCP Family Medicine
DX: R20.2 Paresthesia of skin (principal); I69.354 Hemiplegia and hemiparesis following cerebral infarction affecting left non-dominant side; I13.0 Hypertensive heart and chronic kidney disease with heart failure and stage 1 through stage 4 chronic kidney disease, or unspecified chronic kidney disease; R07.9 Chest pain, unspecified; J44.9 Chronic obstructive pulmonary disease, unspecified; I25.10 Atherosclerotic heart disease of native coronary artery without angina pectoris; N18.3 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, stage 3 (moderate); E78.5 Hyperlipidemia, unspecified; G47.33 Obstructive sleep apnea (adult) (pediatric); E66.9 Obesity, unspecified; I50.9 Heart failure, unspecified; E11.22 Type 2 diabetes mellitus with diabetic chronic kidney disease; Z79.02 Long term (current) use of antithrombotics/antiplatelets; Z79.82 Long term (current) use of aspirin; Z80.42 Family history of malignant neoplasm of prostate; Z82.0 Family history of epilepsy and other diseases of the nervous system; Z87.891 Personal history of nicotine dependence; Z90.49 Acquired absence of other specified parts of digestive tract; Z90.79 Acquired absence of other genital organ(s); Z95.5 Presence of coronary angioplasty implant and graft; Z85.820 Personal history of malignant melanoma of skin; Z68.35 Body mass index [BMI] 35.0-35.9, adult
CPT/HCPCS: 36415; 70450; 70496; 70498; 70551; 71045; 72141; 72148; 80048; 82962; 84484; 85025; 85610; 85730; 92610; 93005; 93017; 93306; 93350; 94762; 97162; 97166; 99284; J7030; J7040; Q9957; Q9967; A4216; C8928; C8929

== ENCOUNTER 2019-12-22 12:45 | Inpatient (IN) | payer MEDICARE, OTHER, SELFPAY ==
[2018-08-03 13:04] VITALS: BMI 19.8
[2019-12-21 20:30] VITALS: BMI 34.7
--- NOTE | 2019-12-22 12:55 | EKG12_ITS ---
Test Reason : CP Blood Pressure : / mmHG Vent. Rate : 070 BPM Atrial Rate : 070 BPM P-R Int : 182 ms QRS Dur : 090 ms QT Int : 418 ms P-R-T Axes : 062 061 066 degrees QTc Int : 451 ms Normal sinus rhythm Normal ECG When compared with ECG of 20-DEC-2019 12:46, MANUAL COMPARISON REQUIRED, DATA IS UNCONFIRMED Confirmed by JENNIFER BOLANOS ([id number]), continuity editor SUKH PERALES ([id number]) on 12/28/2019 9:15:03 AM Referred By: MOSHE Confirmed By:JENNIFER BOLANOS
[2019-12-22 13:00] VITALS: BP 139/73; PULSE 70; RESP 20; TEMP 36.5; O2SAT 96
[2019-12-22 13:25] VITALS: BP 152/82; PULSE 79; RESP 20; O2SAT 96
--- NOTE | 2019-12-22 13:35 | NURSING ---
PT C/O CP ON WAY OVER FROM PCU. PT DECLINED TO MENTION IT D/T WANTING TO GET REHAB STARTED. STAT EKG OBTAINED (NSR) AND DR. BOYER PAGED. NO NEW ORDERS.
[2019-12-22 13:50] VITALS: BMI 34.0
[2019-12-22 13:53] VITALS: BMI 34.1
--- NOTE | 2019-12-22 14:20 | CASEMGMT ---
Social Work Met with patient for initial assessment. Mid way through assessment, pt complaining of chest pain. Stopped assessment. Nurse in to assess and physician notified. Provided support to pt. Will continue to follow. NEO BurtonW
[2019-12-22 16:06] LABS: Bedside Glucose 201 mg/dL (70-110)
[2019-12-22] MEDS: Insulin Lispro 100 UNIT/ML INSULN.PEN SC ×2 (16:06→21:00)
[2019-12-22 19:40] VITALS: BP 131/80; PULSE 77; RESP 20; TEMP 36.6; O2SAT 93
[2019-12-22 20:56] LABS: Bedside Glucose 168 mg/dL (70-110)
[2019-12-22] MEDS: Acetaminophen 325 MG Tablet 650 MG PO (20:57)
[2019-12-22 21:00] VITALS: PULSE 82
[2019-12-22] MEDS: Metoprolol Tartrate 25 MG Tablet PO (21:00)
[2019-12-22] MEDS: Atorvastatin Calcium 40 MG Tablet PO (21:00)
[2019-12-22] MEDS: Isosorbide Mononitrate 60 MG Tablet PO (21:00)
[2019-12-22] MEDS: Mirtazapine 15 MG Tablet PO (21:01)
[2019-12-22 22:00] VITALS: RESP 16
--- NOTE | 2019-12-22 22:58 | NURSING ---
19:30. Hospitalist paged to request Tylenol, per pt request, of left leg achy pain. Hospitalist, Dr Claudia Sultana, returned page within 5 minutes and put in N/O for 650 PRN Tylenol.
[2019-12-23 06:46] LABS: Bedside Glucose 176 mg/dL (70-110)
[2019-12-23] MEDS: Isosorbide Mononitrate 60 MG Tablet PO ×2 (07:54→21:39)
[2019-12-23] MEDS: Spironolactone 25 MG Tablet PO (07:54)
[2019-12-23] MEDS: Furosemide 80 MG Tablet PO (07:54)
[2019-12-23 07:55] VITALS: PULSE 80
[2019-12-23] MEDS: Metoprolol Tartrate 25 MG Tablet PO ×2 (07:55→21:40)
[2019-12-23] MEDS: Cyanocobalamin 500 MCG Tablet 1000 MCG PO (07:55)
[2019-12-23] MEDS: Magnesium Oxide 400 MG Tablet PO (07:55)
[2019-12-23] MEDS: FLUoxetine 20 MG Capsule 40 MG PO (07:55)
[2019-12-23] MEDS: Pantoprazole Sodium 40 MG Tablet PO (07:55)
[2019-12-23] MEDS: Clopidogrel Bisulfate 75 MG Tablet PO (07:55)
[2019-12-23] MEDS: amLODIPine 10 MG Tablet PO (07:55)
[2019-12-23] MEDS: Glimepiride 2 MG Tablet PO (07:56)
[2019-12-23] MEDS: Aspirin E.C. 81 MG Tablet PO (07:56)
[2019-12-23] MEDS: Insulin Lispro 100 UNIT/ML INSULN.PEN SC ×4 (07:57→21:39)
[2019-12-23] MEDS: Polyethylene Glycol 3350 17 GM PACKET PO (08:00)
[2019-12-23 09:31] VITALS: BP 118/73; PULSE 59; RESP 18; TEMP 36.7; O2SAT 94
[2019-12-23] MEDS: Heparin Injection (Vial) 5,000 UNIT/ML VIAL 5000 UNIT SC ×2 (12:09→21:39)
[2019-12-23 12:15] LABS: Bedside Glucose 231 mg/dL (70-110)
[2019-12-23] MEDS: NYSTATIN 500,000 UNIT/5 ML UDC 500000 UNIT PO ×3 (13:44→21:40)
--- NOTE | 2019-12-23 13:49 | HP.PCM_ITS ---
History of Present Illness Date of Admission: 12/22/19 Chief Complaint: left leg weakness. The patient is a 74 year old M was admitted with left sided weakness. He underwent an MRI of brain and spine (cervical and lumbar spine) that were negative. He continues to have weakness in left leg that is intermittent. He has been having chest pain. Stress test performed on the was negative. 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 Patient has had angioplasty and drug-eluting stenting with a small 2.25 mm stent several its ago. 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 Alexandr Mcclain 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, stage 3 (Chronic) Obstructive sleep apnea (Chronic) TIA (transient ischemic attack) (Chronic) Atherosclerotic heart disease [place] coronary artery w/angina pectoris (Chronic) 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 Procedure aborted. 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 Procedure aborted. No complications. 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 Procedure aborted. 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 [Ecotrin] 81 mg PO DAILY@0800 01/21/17 fluoxetine 40 mg capsule 40 mg PO DAILY 90 Days #90 cap 09/21/18 mirtazapine 15 mg tablet 15 mg PO QHS tab 09/21/18 Cyanocobalamin (Vitamin B-12) 1,000 mcg PO DAILY #0 06/01/19 [Vitamin B-12] Ergocalciferol (Vitamin D2) 50 mcg PO DAILY #0 06/01/19 [Vitamin D2] clopidogrel 75 mg tablet 75 mg PO DAILY #90 tab 07/07/19 potassium chloride 20 mEq 40 meq PO BID #360 tab 07/31/19 tablet,extended release(part/cryst) spironolactone 25 mg tablet 25 mg PO DAILY #90 tab 07/31/19 isosorbide mononitrate 60 mg 60 mg PO BID #180 tab 12/04/19 tablet,extended release 24 hr nitroglycerin 0.4 mg sublingual 0.4 mg SUBLINGUAL Q5-15M PRN #25 12/04/19 tablet tab amlodipine 10 mg tablet 10 mg PO DAILY tab 12/05/19 furosemide 40 mg tablet 80 mg PO DAILY #180 tab 12/05/19 magnesium oxide 400 mg (241.3 mg 400 mg PO DAILY tab 12/05/19 magnesium) tablet Atorvastatin Calcium [Lipitor] 40 mg PO QHS 12/20/19 Glimepiride [Amaryl] 2 mg PO DAILY 12/20/19 Metoprolol Tartrate 25 mg PO BID 12/20/19 Pantoprazole Sodium [Protonix] 40 mg PO DAILY 12/20/19 Insulin Lispro [Humalog KwikPen] See Protocol SUBCUT ACHS 12/22/19 [email or web address] Surgical History: Surgical History (Last Reviewed 12/23/19 @ 13:[address] 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 Procedure aborted. No complications. 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 Psychiatric History: Anxiety, Depression Smoking Status: Former smoker Tobacco Use: Cigarettes - *Family History Maternal History Items: - - Denies maternal cardiac history Paternal History Items: - - Father with a history of Parkinson's disease and prostate cancer Review of Systems Constitutional: Denies: Chills, Fever, Weight Change HEENT: Denies: Head Aches, Sinus Congestion, Sinus Drainage Cardiovascular: Denies: Chest Pain, Palpitations Respiratory: Denies: Cough, Shortness of breath at rest, Sputum production Gastrointestinal: Denies: Abdominal Pain, Nausea, Vomiting Genitourinary: Denies: Dysuria Musculoskeletal: Denies: Joint Pain, Joint Tenderness Skin: Denies: Rash, Wounds Neurological: Reports: Focal weakness Hematologic/ Lymphatic: Denies: Easy Bruising, Easy Bleeding, Hx of blood clot VTE Information - Inpt Only VTE Present on Admission: No VTE Mechan Device Prophylaxis: None VTE Pharm Prophylaxis ordered?: Yes - Physical Exam Vitals/I&O's: Vital Signs Temp Pulse Resp BP Pulse Ox 36.7 C 59 L 18 118/73 94 12/23/19 09:31 12/23/19 09:31 12/23/19 09:31 12/23/19 09:31 12/23/19 09:31 Oxygen Delivery Method Room Air Weight: 104.6 kg Body Mass Index (BMI) 34.0 Finger Stick Blood Glucose 209 Intake and Output for Last 24 Hours 12/21/19 12/22/19 12/23/19 23:59 23:59 23:59 Intake Total 360 / 360 630 / 630 Output Total 925 / 925 500 / 500 Balance -565 / -565 130 / 130 General: Alert, Cooperative, No apparent distress HEENT: Atraumatic, Normocephalic Oral: Moist Mucosa, No Gingival or Mucosal Lesions/ Ulcerations Neck: No Nodes, Thyroid Normal Size and Texture Lungs: Clear to auscultation, Normal air movement, No rhonchi, No wheeze, No rales Cardiovascular: Regular rate, Regular Rhythm, Normal S1, Normal S2, No murmurs Abdomen: Bowel Sounds Present, Soft, Non Tender, Non-Distended, No Hepato-splenomegaly Extremities: No edema, No Calf Tenderness Neurological: - - No clonus. Downgoing Babinski bilaterally. Muscle strength 0-5 in the left lower extremity. Psych/Mental Status: Normal Affect, Appropriate Laboratory Results 12/22/19 15:57: POC Glucose 201 H 12/22/19 20:49: POC Glucose 168 H 12/23/19 06:39: POC Glucose 176 H 12/23/19 12:03: POC Glucose 231 H Current Medications Acetaminophen (Tylenol) 650 mg PO Q6H PRN PRN PRN Reason: Pain 1-02/09 Last Admin: 12/22/19 20:57 Dose: 650 mg Documented by: Amlodipine Besylate (Norvasc) 10 mg PO DAILY [facility] Last Admin: 12/23/19 07:55 Dose: 10 mg Documented by: Aspirin (Ecotrin) 81 mg PO DAILY@0800 [facility] Last Admin: 12/23/19 07:56 Dose: 81 mg Documented by: Atorvastatin Calcium (Lipitor) 40 mg PO QHS [facility] Last Admin: 12/22/19 21:00 Dose: 40 mg Documented by: Bisacodyl (Dulcolax) 10 mg RECTAL .PRN X 1 PRN PRN Reason: Constipation Clopidogrel Bisulfate (Plavix) 75 mg PO DAILY [facility] Last Admin: 12/23/19 07:55 Dose: 75 mg Documented by: Cyanocobalamin (Vitamin B12) 1,000 mcg PO DAILY [facility] Last Admin: 12/23/19 07:55 Dose: 1,000 mcg Documented by: Ergocalciferol (Vitamin D) 50,000 unit PO DAILY [facility] Last Admin: 12/23/19 07:55 Dose: 50,000 unit Documented by: Fluoxetine HCl (Prozac) 40 mg PO DAILY [facility] Last Admin: 12/23/19 07:55 Dose: 40 mg Documented by: Furosemide (Lasix) 80 mg PO DAILY [facility] Last Admin: 12/23/19 07:54 Dose: 80 mg Documented by: Glimepiride (Amaryl) 2 mg PO DAILYCM [facility] Last Admin: 12/23/19 07:56 Dose: 2 mg Documented by: Heparin Sodium (Porcine) (Heparin Na) 5,000 unit SC Q12 [facility] Last Admin: 12/23/19 12:09 Dose: 5,000 unit Documented by: Insulin Human Lispro (Humalog Kwikpen (Bkc)) 0 unit SC ACHS [facility]; Protocol Last Admin: 12/23/19 12:06 Dose: 3 u Documented by: Isosorbide Mononitrate (Imdur) 60 mg PO BID [facility] Last Admin: 12/23/19 07:54 Dose: 60 mg Documented by: Magnesium Hydroxide (Milk Of Magnesia) 30 ml PO .PRN X 1 PRN PRN Reason: Constipation Magnesium Oxide (Mag-Ox 400) 400 mg PO DAILY [facility] Last Admin: 12/23/19 07:55 Dose: 400 mg Documented by: Metoprolol Tartrate (Lopressor (Beta Kale)) 25 mg PO BID [facility] Last Admin: 12/23/19 07:55 Dose: 25 mg Documented by: Mirtazapine (Remeron) 15 mg PO QHS [facility] Last Admin: 12/22/19 21:01 Dose: 15 mg Documented by: Nitroglycerin (Nitrostat) 0.4 mg SUBLINGUAL . EVERY 5-15 MINUTES PRN PRN Reason: .CHEST PAIN Nystatin (Nystatin) 500,000 unit PO 4X/DAY [facility] Last Admin: 12/23/19 13:44 Dose: 500,000 unit Documented by: Pantoprazole Sodium (Protonix) 40 mg PO DAILY [facility] Last Admin: 12/23/19 07:55 Dose: 40 mg Documented by: Polyethylene Glycol (Miralax) 17 gm PO DAILY [facility] Last Admin: 12/23/19 08:00 Dose: 17 gm Documented by: Potassium Chloride (K-Dur) 40 meq PO BID [facility] Last Admin: 12/23/19 07:56 Dose: 40 meq Documented by: Spironolactone (Aldactone) 25 mg PO DAILY [facility] Last Admin: 12/23/19 07:54 Dose: 25 mg Documented by: Assessment/Plan 1. Left lower extremity weakness: Symptoms are persistent. Discussed with nursing that he seems to have a waxing and waning symptoms regards to his left lower extremity weakness. Patient's work-up here in the hospital has been unremarkable. The only thing that was not done was an MRI of his thoracic spine but the yield on that would be likely low given his varying symptoms. No evidence of a stroke nor any kind of radicular symptoms in his cervical nor lumbar spine. Will continue with therapy services regards to strength and balance so that he may return home safely. 2. Chest pain: This is been an ongoing issue for the patient. Patient has already had a stress test done recently that was negative. Troponin series during the last admission was also negative. No additional cardiac work-up at this time. 3. VTE prophylaxis with subcu heparin 4. Diabetes mellitus type 2: Fair control at this time. Continue with glimepiride, sliding scale insulin. 5. Heart failure with preserved ejection fraction: EF of 65%. Compensated. Continue with metoprolol, furosemide, isosorbide, and spironolactone. Inpatient E&M: 24110 [facility]s [facility] L2
[2019-12-23 17:01] LABS: Bedside Glucose 182 mg/dL (70-110)
[2019-12-23] MEDS: Atorvastatin Calcium 40 MG Tablet PO (21:39)
[2019-12-23 21:40] VITALS: BP 112/73; PULSE 60
[2019-12-23] MEDS: Mirtazapine 15 MG Tablet PO (21:40)
[2019-12-23] MEDS: Acetaminophen 325 MG Tablet 650 MG PO (21:40)
[2019-12-23 21:51] LABS: Bedside Glucose 216 mg/dL (70-110)
[2019-12-23 22:00] VITALS: BP 112/73; PULSE 60; RESP 18; TEMP 36.5; O2SAT 95
[2019-12-24 06:40] LABS: Bedside Glucose 183 mg/dL (70-110)
[2019-12-24] MEDS: FLUoxetine 20 MG Capsule 40 MG PO (09:11)
[2019-12-24] MEDS: Clopidogrel Bisulfate 75 MG Tablet PO (09:11)
[2019-12-24] MEDS: Isosorbide Mononitrate 60 MG Tablet PO ×2 (09:11→20:28)
[2019-12-24] MEDS: Furosemide 80 MG Tablet PO (09:11)
[2019-12-24] MEDS: Pantoprazole Sodium 40 MG Tablet PO (09:11)
[2019-12-24] MEDS: Polyethylene Glycol 3350 17 GM PACKET PO (09:11)
[2019-12-24] MEDS: Glimepiride 2 MG Tablet PO (09:11)
[2019-12-24] MEDS: amLODIPine 10 MG Tablet PO (09:13)
[2019-12-24] MEDS: Cyanocobalamin 500 MCG Tablet 1000 MCG PO (09:13)
[2019-12-24] MEDS: Aspirin E.C. 81 MG Tablet PO (09:14)
[2019-12-24] MEDS: Heparin Injection (Vial) 5,000 UNIT/ML VIAL 5000 UNIT SC ×2 (09:16→20:30)
[2019-12-24] MEDS: Insulin Lispro 100 UNIT/ML INSULN.PEN SC ×4 (09:17→20:30)
[2019-12-24] MEDS: Magnesium Oxide 400 MG Tablet PO (09:18)
[2019-12-24] MEDS: Spironolactone 25 MG Tablet PO (09:20)
[2019-12-24 10:00] VITALS: BP 129/74; PULSE 59; RESP 16; TEMP 36.7; O2SAT 95
--- NOTE | 2019-12-24 10:19 | PCM.PN.HOSP ---
Reason for Visit: LLE weakness. Subjective: Able to move his LLE, then moments later, says he cannot move his leg. Vitals/I&O's: Vital Signs Temp Pulse Resp BP Pulse Ox 36.5 C L 60 18 112/73 95 12/23/19 22:00 12/23/19 22:00 12/23/19 22:00 12/23/19 22:00 12/23/19 22:00 Oxygen Delivery Method Room Air Weight: 104.6 kg Body Mass Index (BMI) 34.0 Finger Stick Blood Glucose 209 Intake and Output for Last 24 Hours 12/22/19 12/23/19 12/24/19 23:59 23:59 23:59 Intake Total 360 / 360 2130 / 2130 Output Total 925 / 925 1400 / 1400 Balance -565 / -565 730 / 730 General: Alert, No apparent distress HEENT: Atraumatic, Normocephalic Neurological: - - MS 5/5 in LLE when he was able to move it. Psych/Mental Status: Normal Affect, Appropriate Laboratory Results 12/23/19 12:03: POC Glucose 231 H 12/23/19 16:54: POC Glucose 182 H 12/23/19 21:36: POC Glucose 216 H 12/24/19 06:34: POC Glucose 183 H Current Medications Acetaminophen (Tylenol) 650 mg PO Q6H PRN PRN PRN Reason: Pain 1-02/09 Last Admin: 12/23/19 21:40 Dose: 650 mg Documented by: Amlodipine Besylate (Norvasc) 10 mg PO DAILY [facility] Last Admin: 12/24/19 09:13 Dose: 10 mg Documented by: Aspirin (Ecotrin) 81 mg PO DAILY@0800 [facility] Last Admin: 12/24/19 09:14 Dose: 81 mg Documented by: Atorvastatin Calcium (Lipitor) 40 mg PO QHS [facility] Last Admin: 12/23/19 21:39 Dose: 40 mg Documented by: Bisacodyl (Dulcolax) 10 mg RECTAL .PRN X 1 PRN PRN Reason: Constipation Clopidogrel Bisulfate (Plavix) 75 mg PO DAILY [facility] Last Admin: 12/24/19 09:11 Dose: 75 mg Documented by: Cyanocobalamin (Vitamin B12) 1,000 mcg PO DAILY [facility] Last Admin: 12/24/19 09:13 Dose: 1,000 mcg Documented by: Ergocalciferol (Vitamin D) 50,000 unit PO DAILY [facility] Last Admin: 12/24/19 09:18 Dose: 50,000 unit Documented by: Fluoxetine HCl (Prozac) 40 mg PO DAILY [facility] Last Admin: 12/24/19 09:11 Dose: 40 mg Documented by: Furosemide (Lasix) 80 mg PO DAILY [facility] Last Admin: 12/24/19 09:11 Dose: 80 mg Documented by: Glimepiride (Amaryl) 2 mg PO DAILYCM [facility] Last Admin: 12/24/19 09:11 Dose: 2 mg Documented by: Heparin Sodium (Porcine) (Heparin Na) 5,000 unit SC Q12 [facility] Last Admin: 12/24/19 09:16 Dose: 5,000 unit Documented by: Insulin Human Lispro (Humalog Kwikpen (Bkc)) 0 unit SC ACHS [facility]; Protocol Last Admin: 12/24/19 09:17 Dose: 1 u Documented by: Isosorbide Mononitrate (Imdur) 60 mg PO BID [facility] Last Admin: 12/24/19 09:11 Dose: 60 mg Documented by: Magnesium Hydroxide (Milk Of Magnesia) 30 ml PO .PRN X 1 PRN PRN Reason: Constipation Magnesium Oxide (Mag-Ox 400) 400 mg PO DAILY [facility] Last Admin: 12/24/19 09:18 Dose: 400 mg Documented by: Metoprolol Tartrate (Lopressor (Beta Kale)) 25 mg PO BID [facility] Last Admin: 12/23/19 21:40 Dose: 25 mg Documented by: Mirtazapine (Remeron) 15 mg PO QHS [facility] Last Admin: 12/23/19 21:40 Dose: 15 mg Documented by: Nitroglycerin (Nitrostat) 0.4 mg SUBLINGUAL . EVERY 5-15 MINUTES PRN PRN Reason: .CHEST PAIN Nystatin (Nystatin) 500,000 unit PO 4X/DAY [facility] Last Admin: 12/23/19 21:40 Dose: 500,000 unit Documented by: Pantoprazole Sodium (Protonix) 40 mg PO DAILY [facility] Last Admin: 12/24/19 09:11 Dose: 40 mg Documented by: Polyethylene Glycol (Miralax) 17 gm PO DAILY [facility] Last Admin: 12/24/19 09:11 Dose: 17 gm Documented by: Potassium Chloride (K-Dur) 40 meq PO BID [facility] Last Admin: 12/24/19 09:12 Dose: 40 meq Documented by: Spironolactone (Aldactone) 25 mg PO DAILY [facility] Last Admin: 12/24/19 09:20 Dose: 25 mg Documented by: Medical Necessity - Tobacco Use Smoking Status: Former smoker Tobacco Use: Cigarettes Assessment/Plan 1. Left lower extremity weakness: Symptoms are persistent. Discussed with nursing that he seems to have a waxing and waning symptoms regards to his left lower extremity weakness. Patient's work-up here in the hospital has been unremarkable. The only thing that was not done was an MRI of his thoracic spine but the yield on that would be likely low given his varying symptoms. No evidence of a stroke nor any kind of radicular symptoms in his cervical nor lumbar spine. Will continue with therapy services regards to strength and balance so that he may return home safely. 2. Chest pain: This is been an ongoing issue for the patient. Patient has already had a stress test done recently that was negative. Troponin series during the last admission was also negative. No additional cardiac work-up at this time. 3. VTE prophylaxis with subcu heparin 4. Diabetes mellitus type 2: Fair control at this time. Continue with glimepiride, sliding scale insulin. 5. Heart failure with preserved ejection fraction: EF of 65%. Compensated. Continue with metoprolol, furosemide, isosorbide, and spironolactone. Inpatient E&M: 73146 [facility] L1
[2019-12-24 11:43] VITALS: PULSE 59
[2019-12-24] MEDS: Metoprolol Tartrate 25 MG Tablet PO ×2 (11:43→20:28)
[2019-12-24] MEDS: NYSTATIN 500,000 UNIT/5 ML UDC 500000 UNIT PO ×4 (11:43→20:28)
[2019-12-24 11:55] LABS: Bedside Glucose 245 mg/dL (70-110)
[2019-12-24 16:30] LABS: Bedside Glucose 259 mg/dL (70-110)
[2019-12-24 20:15] VITALS: BP 124/76; PULSE 64; RESP 16; TEMP 37; O2SAT 97
[2019-12-24 20:28] VITALS: BP 124/76; PULSE 64
[2019-12-24] MEDS: Atorvastatin Calcium 40 MG Tablet PO (20:29)
[2019-12-24] MEDS: Mirtazapine 15 MG Tablet PO (20:29)
[2019-12-24 20:41] LABS: Bedside Glucose 203 mg/dL (70-110)
[2019-12-25 07:01] LABS: Bedside Glucose 190 mg/dL (70-110)
[2019-12-25 07:29] VITALS: BP 108/58; PULSE 57; RESP 18; TEMP 36.4; O2SAT 95
[2019-12-25] MEDS: Polyethylene Glycol 3350 17 GM PACKET PO (07:36)
[2019-12-25] MEDS: NYSTATIN 500,000 UNIT/5 ML UDC 500000 UNIT PO ×4 (07:36→20:58)
[2019-12-25] MEDS: Isosorbide Mononitrate 60 MG Tablet PO ×2 (07:37→20:58)
[2019-12-25] MEDS: Spironolactone 25 MG Tablet PO (07:37)
[2019-12-25] MEDS: FLUoxetine 20 MG Capsule 40 MG PO (07:37)
[2019-12-25] MEDS: amLODIPine 10 MG Tablet PO (07:37)
[2019-12-25] MEDS: Clopidogrel Bisulfate 75 MG Tablet PO (07:37)
[2019-12-25] MEDS: Aspirin E.C. 81 MG Tablet PO (07:37)
[2019-12-25] MEDS: Cyanocobalamin 500 MCG Tablet 1000 MCG PO (07:37)
[2019-12-25] MEDS: Pantoprazole Sodium 40 MG Tablet PO (07:37)
[2019-12-25] MEDS: Magnesium Oxide 400 MG Tablet PO (07:37)
[2019-12-25 07:38] VITALS: BP 108/58; PULSE 57
[2019-12-25] MEDS: Furosemide 80 MG Tablet PO (07:38)
[2019-12-25] MEDS: Glimepiride 2 MG Tablet PO (07:38)
[2019-12-25] MEDS: Metoprolol Tartrate 25 MG Tablet PO ×2 (07:38→20:59)
[2019-12-25] MEDS: Insulin Lispro 100 UNIT/ML INSULN.PEN SC ×4 (07:38→21:13)
[2019-12-25] MEDS: Heparin Injection (Vial) 5,000 UNIT/ML VIAL 5000 UNIT SC ×2 (07:39→20:57)
--- NOTE | 2019-12-25 09:21 | CASEMGMT ---
Social Work IDT met with patient for Team meeting. Discussed patient's progress in therapy. Pt is Teresa for bathing, LE dressing, min for transfers. Pt is sleeping well. Physician ordered cream for pain in shoulder and knee. Explained Medicare approved 13 days with EDC 01/02. Will Reteam next week. Will continue to follow. JOSE CARLOS BurtonW
[2019-12-25] MEDS: Capsaicin 0.025% 1 APPLIC Tube TOPICAL ×2 (10:22→21:05)
[2019-12-25 12:00] LABS: Bedside Glucose 226 mg/dL (70-110)
[2019-12-25 16:36] LABS: Bedside Glucose 161 mg/dL (70-110)
[2019-12-25 19:32] VITALS: BP 134/79; PULSE 61; RESP 16; TEMP 36.8; O2SAT 98
[2019-12-25 20:40] VITALS: PULSE 61; RESP 16; O2SAT 98
[2019-12-25] MEDS: Mirtazapine 15 MG Tablet PO (20:58)
[2019-12-25 20:59] VITALS: BP 134/79; PULSE 61
[2019-12-25] MEDS: Atorvastatin Calcium 40 MG Tablet PO (20:59)
[2019-12-25] MEDS: Acetaminophen 325 MG Tablet 650 MG PO (21:07)
[2019-12-25 21:31] LABS: Bedside Glucose 219 mg/dL (70-110)
--- NOTE | 2019-12-25 22:00 | PCM.RU.PYE ---
Admission Information Primary Diagnosis:: Left lower extremity weakness. Status Changes from Prescreening?: No changes Identified Actual Problem List:: Falls, Mobility Impaired, Diabetes, Hyperglycemia Potential Problem List:: DVT, Infection, Falls, Depression Risk of Complications DVT: LMWH, SPENCER Hose, Sequential Compression Device Bleeding: Monitor Lab Values, Nursing to Teach Precautions for anti-coagulation therapy., Wound, if applicable, to be assessed every shift., Stroke patients assessed for lethargy or change in status. Infection: Clinical Staff to Monitor for S/S of infection:, S/S of infection include fever, redness, warmth, etc. Urinary Tract Infection: Monitor for frequency, burning, discomfort, or incontinence., Nursing will obtain urine sample for urinalysis and C&S when ordered. Aspiration: Clinical staff will monitor for coughing, drooling, congestion., Speech will evaluate swallowing and dsyphasia., Nursing will monitor patient swallowing during meals. Falls: Patient will be evaluated for Fall Precautions, Patient will be placed on Fall Precautions as indicated per protocol. Skin Breakdown: Nursing will assess skin daily using assessment tool., Nursing will place on Skin Breakdown Precautions as indicated. Pain: Clinical staff will assess patient's pain level per protocol., Medications will be given, if needed, and the pain level reassessed., Other methods: Massage, distraction, decrease stimulus, etc. used PRN. Plan of Care Patient requires physician specializing in physical medicine and rehab oversight to provide close medical supervision of rehab issues including: Pain Management, Sleep Problems, Bowel and Bladder, Medical and co-morbidity Management, DVT prophylaxis, Rehabilitation Leadership, Coordination of treatment team Patient needs Physical Therapy: For a minimum of 1 hour, At least 5 out of 7 days Patient needs Physical Therapy to improve:: Mobility, Mobility, Mobility, Strengthening, Transfers, Stretching, ROM, Endurance, Stairs, Gait, Balance Patient needs Occupational Therapy: For a minimum of 1 hour, At least 5 out of 7 days Patient needs Occupational Therapy to improve ADL's incl.: Eating, Grooming, Bathing, Dressing, Toileting, Toilet transfers, Community Reintegration, Higher functioning activities, Household tasks, Adaptive Equipment, Splinting, Other activities as determined Patient requires speech therapy: For a minimum of 1 hour, At least 5 out of 7 days Patient requires speech therapy for: Swallowing, Cognition, Language Skills, Compensatory Strategies Patient requires / Rehabilitation Nursing for: Pain Issues, Identifying and preventing risk factors, Monitoring and reporting current medical conditions, Assisting with ambulation, transfer, and all ADL's, Teaching patients about disease process and medications, Family teaching, Providing safe environment, Bowel and Bladder Issues, Skin integrity, Medication Management Patient needs Shipping And Receiving Assistant/ Case Management for: Discharge Planning, Arranging Home Equipment or Services, Family Interventions Patient needs Dietary and Nutrition Services for: Adequate Nutrition, Nutritional Supplements, Nutritional Education Goals Patient will remain: free from falls, or injury at time of discharge. Patient will perform bed mobility at: Standby Assist. Patient will complete transfers from bed to chair at: MOD I level of assist. Patient will ambulate: 100 feet, with MOD I assist, with standby assist, with LRD Patient will complete upper body dressing at: MOD I level of assist. Patient will complete lower body dressing at: MOD I level of assist. Patient will complete toileting at: MOD I level of assist. Patient will perform bathing at: MOD I level of assist. Patient will complete grooming at: MOD I level of assist. Patient will complete home management skills at: MOD I level of assist. Patient will achieve: at MOD I assist Patient will have pain level of: of 3 or less Patient's skin will: remain intact, free from infection. Patient will receive: adequate nutrition. Discharge Planning Pt Prognosis for Sig. Practical Improv. w/in Reasonable Time: Good Anticipated D/C Destination: Home with Home Health Was Preadmission Assessment Accurate?: Yes
--- NOTE | 2019-12-25 22:06 | PCM.TCUNOT ---
Subjective: Patient seen on Team rounds today. He is sitting in chair, his only complaint is left shoulder, left knee pain. His pain sounds neuropathic at times, but he feels it is improving. Vitals/I&O's: Vital Signs Temp Pulse Resp BP Pulse Ox 98.2 F 61 16 134/79 H 98 12/25/19 19:32 12/25/19 20:59 12/25/19 19:32 12/25/19 20:59 12/25/19 19:32 Oxygen Delivery Method Room Air Weight: 104.6 kg Body Mass Index (BMI) 34.0 Finger Stick Blood Glucose 209 Intake and Output for Last 24 Hours 12/23/19 12/24/19 12/25/19 23:59 23:59 23:59 Intake Total 2130 / 2130 1880 / 1880 1810 / 1810 Output Total 1400 / 1400 1100 / 1100 1999 / 1999 Balance 730 / 730 780 / 780 -190 / -190 Laboratory Results 12/25/19 06:30: POC Glucose 190 H 12/25/19 11:54: POC Glucose 226 H 12/25/19 16:22: POC Glucose 161 H 12/25/19 21:12: POC Glucose 219 H Past Medical History Past Medical History (Chronic Problems): Chronic Problems (Last Reviewed 12/23/19 @ 13:[address] 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 Patient has had angioplasty and drug-eluting stenting with a small 2.25 mm stent several its ago. 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 Alexandr Mcclain 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, stage 3 (Chronic) Obstructive sleep apnea (Chronic) TIA (transient ischemic attack) (Chronic) Atherosclerotic heart disease [place] coronary artery w/angina pectoris (Chronic) 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 Procedure aborted. 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 Procedure aborted. No complications. 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 Procedure aborted. 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 [Ecotrin] 81 mg PO DAILY@0800 01/21/17 fluoxetine 40 mg capsule 40 mg PO DAILY 90 Days #90 cap 09/21/18 mirtazapine 15 mg tablet 15 mg PO QHS tab 09/21/18 Cyanocobalamin (Vitamin B-12) 1,000 mcg PO DAILY #0 06/01/19 [Vitamin B-12] Ergocalciferol (Vitamin D2) 50 mcg PO DAILY #0 06/01/19 [Vitamin D2] clopidogrel 75 mg tablet 75 mg PO DAILY #90 tab 07/07/19 potassium chloride 20 mEq 40 meq PO BID #360 tab 07/31/19 tablet,extended release(part/cryst) spironolactone 25 mg tablet 25 mg PO DAILY #90 tab 07/31/19 isosorbide mononitrate 60 mg 60 mg PO BID #180 tab 12/04/19 tablet,extended release 24 hr nitroglycerin 0.4 mg sublingual 0.4 mg SUBLINGUAL Q5-15M PRN #25 12/04/19 tablet tab amlodipine 10 mg tablet 10 mg PO DAILY tab 12/05/19 furosemide 40 mg tablet 80 mg PO DAILY #180 tab 12/05/19 magnesium oxide 400 mg (241.3 mg 400 mg PO DAILY tab 12/05/19 magnesium) tablet Atorvastatin Calcium [Lipitor] 40 mg PO QHS 12/20/19 Glimepiride [Amaryl] 2 mg PO DAILY 12/20/19 Metoprolol Tartrate 25 mg PO BID 12/20/19 Pantoprazole Sodium [Protonix] 40 mg PO DAILY 12/20/19 Insulin Lispro [Humalog KwikPen] See Protocol SUBCUT ACHS 12/22/19 insuln.pen Surgical History: Surgical History (Last Reviewed 12/23/19 @ 13:[address] 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 Procedure aborted. No complications. 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 Psychiatric History: Anxiety, Depression Smoking Status: Former smoker Tobacco Use: Cigarettes - *Family History Maternal History Items: - - Denies maternal cardiac history Paternal History Items: - - Father with a history of Parkinson's disease and prostate cancer Capacity - Capacity Assessment Tool Can the patient make a choice & communicate that choice?: Yes Can the patient understand benefits, risks and alternatives?: Yes Can the patient make a logical, rational choice?: Yes Is the choice the patient makes consistent w/ their values?: Yes Is there an impending, emergent risk to the patient?: No Does the patient have an Advance Directive?: No Is there a Surrogate Available?: Yes i.e. HCPOA: Yes i.e. close relative (spouse, child, parent, sibling)?: Yes Review of Systems Constitutional: Denies: Chills, Fever, Weight Change HEENT: Denies: Head Aches, Sinus Congestion, Sinus Drainage Cardiovascular: Denies: Chest Pain, Palpitations Respiratory: Denies: Cough, Shortness of breath at rest, Sputum production Gastrointestinal: Denies: Abdominal Pain, Nausea, Vomiting Genitourinary: Denies: Dysuria Musculoskeletal: Reports: Shoulder Pain - Left.. Denies: Joint Pain, Joint Tenderness Skin: Denies: Rash, Wounds Neurological: Denies: Numbness, Tingling, Focal weakness Psychiatric: Denies: Anxiety, Depression, Homicidal Ideations, Suicidal Ideations Hematologic/ Lymphatic: Denies: Easy Bruising, Easy Bleeding - Physical Exam Vitals/I&O's: Vital Signs Temp Pulse Resp BP Pulse Ox 98.2 F 61 16 134/79 H 98 12/25/19 19:32 12/25/19 20:59 12/25/19 19:32 12/25/19 20:59 12/25/19 19:32 Oxygen Delivery Method Room Air Weight: 104.6 kg Body Mass Index (BMI) 34.0 Finger Stick Blood Glucose 209 Intake and Output for Last 24 Hours 12/23/19 12/24/19 12/25/19 23:59 23:59 23:59 Intake Total 2130 / 2130 1880 / 1880 1810 / 1810 Output Total 1400 / 1400 1100 / 1100 1999 / 1999 Balance 730 / 730 780 / 780 -190 / -190 General: Alert, Oriented x3, Cooperative HEENT: Atraumatic, PERRLA, EOMI, Normocephalic Neck: Supple, No JVD, Negative Carotid Bruits Lungs: Clear to auscultation, Normal air movement Cardiovascular: Regular rate, No murmurs Abdomen: Bowel Sounds Present, Soft, Non Tender Extremities: No edema, Capillary Refill Less than 3 Seconds Skin: No rashes, No breakdown Musculoskeletal: No Tenderness to Palpation of Joints or Extremities Neurological: Cranial nerves II-XII grossly intact Psych/Mental Status: Normal Affect, Appropriate Laboratory Results 12/25/19 06:30: POC Glucose 190 H 12/25/19 11:54: POC Glucose 226 H 12/25/19 16:22: POC Glucose 161 H 12/25/19 21:12: POC Glucose 219 H Current Medications Acetaminophen (Tylenol) 650 mg PO Q6H PRN PRN PRN Reason: Pain 1-02/09 Last Admin: 12/25/19 21:07 Dose: 650 mg Documented by: Amlodipine Besylate (Norvasc) 10 mg PO DAILY [facility] Last Admin: 12/25/19 07:37 Dose: 10 mg Documented by: Aspirin (Ecotrin) 81 mg PO DAILY@0800 [facility] Last Admin: 12/25/19 07:37 Dose: 81 mg Documented by: Atorvastatin Calcium (Lipitor) 40 mg PO QHS [facility] Last Admin: 12/25/19 20:59 Dose: 40 mg Documented by: Bisacodyl (Dulcolax) 10 mg RECTAL .PRN X 1 PRN PRN Reason: Constipation Calcium Carbonate (Tums) 500 mg PO Q6H PRN PRN PRN Reason: HEARTBURN OR INDIGESTION Capsaicin (Zostrix) 1 applic TOPICAL BID [facility]; Protocol Last Admin: 12/25/19 21:05 Dose: 1 applicatio Documented by: Clopidogrel Bisulfate (Plavix) 75 mg PO DAILY [facility] Last Admin: 12/25/19 07:37 Dose: 75 mg Documented by: Cyanocobalamin (Vitamin B12) 1,000 mcg PO DAILY [facility] Last Admin: 12/25/19 07:37 Dose: 1,000 mcg Documented by: Ergocalciferol (Vitamin D) 50,000 unit PO DAILY [facility] Last Admin: 12/25/19 07:37 Dose: 50,000 unit Documented by: Fluoxetine HCl (Prozac) 40 mg PO DAILY [facility] Last Admin: 12/25/19 07:37 Dose: 40 mg Documented by: Furosemide (Lasix) 80 mg PO DAILY [facility] Last Admin: 12/25/19 07:38 Dose: 80 mg Documented by: Glimepiride (Amaryl) 2 mg PO DAILYCM [facility] Last Admin: 12/25/19 07:38 Dose: 2 mg Documented by: Heparin Sodium (Porcine) (Heparin Na) 5,000 unit SC Q12 [facility] Last Admin: 12/25/19 20:57 Dose: 5,000 unit Documented by: Insulin Human Lispro (Humalog Kwikpen (Bkc)) 0 unit SC ACHS [facility]; Protocol Last Admin: 12/25/19 21:13 Dose: 2 u Documented by: Isosorbide Mononitrate (Imdur) 60 mg PO BID [facility] Last Admin: 12/25/19 20:58 Dose: 60 mg Documented by: Magnesium Hydroxide (Milk Of Magnesia) 30 ml PO .PRN X 1 PRN PRN Reason: Constipation Magnesium Oxide (Mag-Ox 400) 400 mg PO DAILY [facility] Last Admin: 12/25/19 07:37 Dose: 400 mg Documented by: Metoprolol Tartrate (Lopressor (Beta Kale)) 25 mg PO BID [facility] Last Admin: 12/25/19 20:59 Dose: 25 mg Documented by: Mirtazapine (Remeron) 15 mg PO QHS [facility] Last Admin: 12/25/19 20:58 Dose: 15 mg Documented by: Nitroglycerin (Nitrostat) 0.4 mg SUBLINGUAL . EVERY 5-15 MINUTES PRN PRN Reason: .CHEST PAIN Nystatin (Nystatin) 500,000 unit PO 4X/DAY [facility] Last Admin: 12/25/19 20:58 Dose: 500,000 unit Documented by: Pantoprazole Sodium (Protonix) 40 mg PO DAILY [facility] Last Admin: 12/25/19 07:37 Dose: 40 mg Documented by: Polyethylene Glycol (Miralax) 17 gm PO DAILY [facility] Last Admin: 12/25/19 07:36 Dose: 17 gm Documented by: Potassium Chloride (K-Dur) 40 meq PO BID [facility] Last Admin: 12/25/19 20:58 Dose: 40 meq Documented by: Spironolactone (Aldactone) 25 mg PO DAILY [facility] Last Admin: 12/25/19 07:37 Dose: 25 mg Documented by: Assessment/Plan 74 year old male with below past medical history hospitalized for left lower extremity weakness, admitted to for > 3 hours therapy per day, prior to discharge home. Debility - PT/OT. Pain - Tylenol 650MG Q6H PRN pain (1-10). Bowel - Miralax 17GM daily, Dulcolax 10MG DC daily PRN. DVT prophylaxis - Heparin 5000 units Q12H. Hypertension - Metoprolol 25MG BID, Amlodipine 10MG daily. Coronary Artery Disease - Metoprolol 25MG BID, Imdur 60MG BID, Plavix 75MG daily, Aspirin 81MG daily, NTG 0.4MG PRN. Hyperlipidemia - Atorvastatin 40MG QHS. GERD - Pantoprazole 40MG daily, TUMS 500MG Q6H PRN, MOM 30ML PO PRN. Left shoulder/left knee pain - Zostrix topical BID. Vitamin B12 deficiency - B12 1000MCG daily. Vitamin D deficiency - D3 1000IU daily. Depression - Fluoxetine 40MG daily. Edema - Lasix 80MG daily, Aldactone 25MG daily. Diabetes Mellitus II - Glimepiride 2MG daily, Humalog SSI. Hypomagnesemia - Magnesium Oxide 400MG daily. Appetite loss - Mirtazapine 15MG QHS. Thrush - Nystatin 500,000 4x/day. Hypokalemia - K-Dur 40MEQ BID,
[2019-12-26] VITALS (10 sets, daily range): BP systolic 133–153; BP diastolic 68–94; PULSE 54–68; RESP 16–18; TEMP 36.4–36.9; O2SAT 96
--- NOTE | 2019-12-26 04:11 | NURSING ---
Reviewed and agree with [employer] documentation and charting.
[2019-12-26] MEDS: Aspirin E.C. 81 MG Tablet PO (07:55)
[2019-12-26] MEDS: Insulin Lispro 100 UNIT/ML INSULN.PEN SC ×4 (07:55→20:58)
[2019-12-26] MEDS: Glimepiride 2 MG Tablet PO (07:55)
[2019-12-26] MEDS: Spironolactone 25 MG Tablet PO (07:56)
[2019-12-26] MEDS: Heparin Injection (Vial) 5,000 UNIT/ML VIAL 5000 UNIT SC ×2 (07:56→20:48)
[2019-12-26] MEDS: Furosemide 80 MG Tablet PO (07:57)
[2019-12-26] MEDS: Metoprolol Tartrate 25 MG Tablet PO ×2 (07:57→20:49)
[2019-12-26] MEDS: Isosorbide Mononitrate 60 MG Tablet PO ×2 (07:57→20:49)
[2019-12-26] MEDS: amLODIPine 10 MG Tablet PO (07:59)
[2019-12-26] MEDS: Polyethylene Glycol 3350 17 GM PACKET PO (07:59)
[2019-12-26] MEDS: NYSTATIN 500,000 UNIT/5 ML UDC 500000 UNIT PO ×4 (08:00→20:49)
[2019-12-26] MEDS: Clopidogrel Bisulfate 75 MG Tablet PO (08:00)
[2019-12-26] MEDS: FLUoxetine 20 MG Capsule 40 MG PO (08:00)
[2019-12-26] MEDS: Capsaicin 0.025% 1 APPLIC Tube TOPICAL ×2 (08:00→20:50)
[2019-12-26] MEDS: Pantoprazole Sodium 40 MG Tablet PO (08:00)
[2019-12-26] MEDS: Cyanocobalamin 500 MCG Tablet 1000 MCG PO (08:00)
[2019-12-26] MEDS: Magnesium Oxide 400 MG Tablet PO ×2 (08:10→16:58)
--- NOTE | 2019-12-26 08:25 | PN_ITS ---
Subjective: Patient seen, sitting in chair in room. He states he had chest pain twice yesterday, lasting 10 minutes, resolved by itself. He had stress echo 1 week prior which was normal. He is also having increasing leg cramps, asking to have his magnesium oxide increased. - Physical Exam Vitals/I&O's: Vital Signs Temp Pulse Resp BP Pulse Ox 97.5 F L 60 16 135/74 H 96 12/26/19 07:28 12/26/19 07:57 12/26/19 07:28 12/26/19 07:28 12/26/19 07:28 Oxygen Delivery Method CPAP Weight: 104.6 kg Body Mass Index (BMI) 34.0 Finger Stick Blood Glucose 209 Intake and Output for Last 24 Hours 12/24/19 12/25/19 12/26/19 23:59 23:59 23:59 Intake Total 1880 / 1880 1810 / 1810 100 / 100 Output Total 1100 / 1100 2000 / 2000 800 / 800 Balance 780 / 780 -190 / -190 -700 / -700 General: Alert, Oriented x3, Cooperative HEENT: Atraumatic, PERRLA, EOMI, Normocephalic Neck: Supple, No JVD, Negative Carotid Bruits Lungs: Clear to auscultation, Normal air movement Cardiovascular: Regular rate, No murmurs Abdomen: Bowel Sounds Present, Soft, Non Tender Extremities: No edema, Capillary Refill Less than 3 Seconds Skin: No rashes, No breakdown Musculoskeletal: No Tenderness to Palpation of Joints or Extremities Neurological: Cranial nerves II-XII grossly intact Psych/Mental Status: Normal Affect, Appropriate Laboratory Results 12/25/19 11:54: POC Glucose 226 H 12/25/19 16:22: POC Glucose 161 H 12/25/19 21:12: POC Glucose 219 H 12/26/19 08:12: Magnesium Pending Current Medications Acetaminophen (Tylenol) 650 mg PO Q6H PRN PRN PRN Reason: Pain 1-02/09 Last Admin: 12/25/19 21:07 Dose: 650 mg Documented by: Amlodipine Besylate (Norvasc) 10 mg PO DAILY [facility] Last Admin: 12/26/19 07:59 Dose: 10 mg Documented by: Aspirin (Ecotrin) 81 mg PO DAILY@0800 [facility] Last Admin: 12/26/19 07:55 Dose: 81 mg Documented by: Atorvastatin Calcium (Lipitor) 40 mg PO QHS [facility] Last Admin: 12/25/19 20:59 Dose: 40 mg Documented by: Bisacodyl (Dulcolax) 10 mg RECTAL .PRN X 1 PRN PRN Reason: Constipation Calcium Carbonate (Tums) 500 mg PO Q6H PRN PRN PRN Reason: HEARTBURN OR INDIGESTION Capsaicin (Zostrix) 1 applic TOPICAL BID [facility]; Protocol Last Admin: 12/26/19 08:00 Dose: 1 applicatio Documented by: Cholecalciferol (Vitamin D (25mcg)) 1,000 unit PO DAILY [facility] Last Admin: 12/26/19 08:00 Dose: 1,000 unit Documented by: Clopidogrel Bisulfate (Plavix) 75 mg PO DAILY [facility] Last Admin: 12/26/19 08:00 Dose: 75 mg Documented by: Cyanocobalamin (Vitamin B12) 1,000 mcg PO DAILY [facility] Last Admin: 12/26/19 08:00 Dose: 1,000 mcg Documented by: Fluoxetine HCl (Prozac) 40 mg PO DAILY [facility] Last Admin: 12/26/19 08:00 Dose: 40 mg Documented by: Furosemide (Lasix) 80 mg PO DAILY [facility] Last Admin: 12/26/19 07:57 Dose: 80 mg Documented by: [facility] Admin: 12/26/19 07:55 Dose: 2 mg Documented by: Heparin Sodium (Porcine) (Heparin Na) 5,000 unit SC Q12 [facility] Last Admin: 12/26/19 07:56 Dose: 5,000 unit Documented by: Insulin Human Lispro (Humalog Kwikpen (Bkc)) 0 unit SC ACHS [facility]; Protocol Last Admin: 12/26/19 07:55 Dose: 2 u Documented by: Isosorbide Mononitrate (Imdur) 60 mg PO BID [facility] Last Admin: 12/26/19 07:57 Dose: 60 mg Documented by: Magnesium Hydroxide (Milk Of Magnesia) 30 ml PO .PRN X 1 PRN PRN Reason: Constipation Magnesium Oxide (Mag-Ox 400) [facility] Last Admin: 12/26/19 08:10 Dose: 400 mg Documented by: Metoprolol Tartrate (Lopressor (Beta Kale)) 25 mg PO BID [facility] Last Admin: 12/26/19 07:57 Dose: 25 mg Documented by: Mirtazapine (Remeron) 15 mg PO QHS [facility] Last Admin: 12/25/19 20:58 Dose: 15 mg Documented by: Nitroglycerin (Nitrostat) 0.4 mg SUBLINGUAL . EVERY 5-15 MINUTES PRN PRN Reason: .CHEST PAIN Nystatin (Nystatin) 500,000 unit PO 4X/DAY [facility] Stop: 01/02/20 14:01 Last Admin: 12/26/19 08:00 Dose: 500,000 unit Documented by: Pantoprazole Sodium (Protonix) 40 mg PO DAILY [facility] Last Admin: 12/26/19 08:00 Dose: 40 mg Documented by: Polyethylene Glycol (Miralax) 17 gm PO DAILY [facility] Last Admin: 12/26/19 07:59 Dose: 17 gm Documented by: Potassium Chloride (K-Dur) 40 meq PO BID [facility] Last Admin: 12/26/19 07:57 Dose: 40 meq Documented by: Spironolactone (Aldactone) 25 mg PO DAILY [facility] Last Admin: 12/26/19 07:56 Dose: 25 mg Documented by: Capacity - Capacity Assessment Tool Can the patient make a choice & communicate that choice?: Yes Can the patient understand benefits, risks and alternatives?: Yes Can the patient make a logical, rational choice?: Yes Is the choice the patient makes consistent w/ their values?: Yes Is there an impending, emergent risk to the patient?: No Does the patient have an Advance Directive?: No Is there a Surrogate Available?: Yes i.e. HCPOA: Yes i.e. close relative (spouse, child, parent, sibling)?: Yes Medical Necessity - Tobacco Use Smoking Status: Former smoker Tobacco Use: Cigarettes Assessment/Plan 74 year old male with below past medical history hospitalized for left lower extremity weakness, admitted to for > 3 hours therapy per day, prior to discharge home. * Debility - PT/OT. * Pain - Tylenol 650MG Q6H PRN pain (1-10). * Bowel - Miralax 17GM daily, Dulcolax 10MG [place] daily PRN. * DVT prophylaxis - Heparin 5000 units Q12H. * Hypertension - Metoprolol 25MG BID, Amlodipine 10MG daily. * Coronary Artery Disease - Metoprolol 25MG BID, Imdur 60MG BID, Plavix 75MG daily, Aspirin 81MG daily, NTG 0.4MG PRN. * Hyperlipidemia - Atorvastatin 40MG QHS. * GERD - Pantoprazole 40MG daily, TUMS 500MG Q6H PRN, MOM 30ML PO PRN. * Left shoulder/left knee pain - Zostrix topical BID. * Vitamin B12 deficiency - B12 1000MCG daily. * Vitamin D deficiency - D3 1000IU daily. * Depression - Fluoxetine 40MG daily. * Edema - Lasix 80MG daily, Aldactone 25MG daily. * Diabetes Mellitus II - Glimepiride 2MG daily, Humalog SSI. * Hypomagnesemia - Magnesium Oxide 400MG daily, check magnesium level, increase Magnesium Oxide to 400MG BID. * Appetite loss - Mirtazapine 15MG QHS. * Thrush - Nystatin 500,000 4x/day thru 01/02/2020. * Hypokalemia - K-Dur 40MEQ BID. * Chest pain - Stress echo negative 1 week prior, monitor.
[2019-12-26 08:31] LABS: Magnesium 2.1 mg/dL (1.6-2.6)
[2019-12-26 09:10] LABS: Bedside Glucose 228 mg/dL (70-110)
--- NOTE | 2019-12-26 11:00 | NURSING ---
pt working with therapy at this time and c/o dizziness while walking. pts vitals taken and BP 148/81 with pulse of 62. pt sat for a few minutes and continued to walk with therapy with no further complaints of dizziness at this time.
[2019-12-26 11:36] LABS: Bedside Glucose 254 mg/dL (70-110)
--- NOTE | 2019-12-26 11:41 | NURSING ---
1130- this nurse in pt room at this time getting blood glucose level prior to meal. at that time pt told this nurse that pt was having chest pain. this nurse told pt that this nurse will grab vitals machine and offered pt Nitro at this time for chest pain- pt laughing and joking with staff and pt agrees to take nitro. this nurse leaves pt room and grabs dynamap and Nitro from pts med drawer. upon returning to pt room vitals machine applied and bp taken. bp 133/69 with a pulse of 59. pt then states to this nurse that he no longer wants to take the nitro as the chest pain has subsided. pt denies further intervention at this time. pt continues to laugh and joke with staff. this nurse tells pt to let staff know of chest pain as soon as it happens. pt states understanding. staff will continue to monitor pt and round every hour. call light within reach and PA attached. pt expressed no further needs at this time. cortext sent to dr. hall in regards to pt c/o chest pain.
--- NOTE | 2019-12-26 13:44 | NURSING ---
1320- pt complains to therapy staff that L side of face is starting to get numb. CHECKING CLERK tells this nurse and this nurse does vital signs. BP 153/86 and pulse 68. pt cognitively aware. no slurring of speech noted, pt has symmetrical smile and no deviation of the tongue. pupils are reactive to light and symmetrical. pt has equal hand grasps and equal muscle strength on both upper extremities. lower extremities checked for muscle strength and RLE normal but pt states that he cannot move LLE. this nurse then observes pt walking back to room with therapy and pt is able to walk and move LLE while walking. dr hall to be made aware of the situation. will continue to monitor pt.
[2019-12-26] MEDS: Nitroglycerin (INPATIENT USE) 0.4 MG TAB.SUBL SUBLINGUAL (14:30)
--- NOTE | 2019-12-26 14:32 | NURSING ---
1427 pt complains of chest pain 6/10 and is requesting a dose of nitro. vital signs 137/76 pulse 60. pt denies use of E.D. meds recently. nitro administered via sublingual method at 1430. pt states relief of chest pain at 1435. will continue to monitor pt. dr hall made aware.
--- NOTE | 2019-12-26 14:48 | EKG12_ITS ---
Test Reason : CP Blood Pressure : / mmHG Vent. Rate : 056 BPM Atrial Rate : 056 BPM P-R Int : 182 ms QRS Dur : 098 ms QT Int : 426 ms P-R-T Axes : 062 059 067 degrees QTc Int : 411 ms Sinus bradycardia with occasional Premature ventricular complexes Otherwise normal ECG When compared with ECG of 22-DEC-2019 13:05, MANUAL COMPARISON REQUIRED, DATA IS UNCONFIRMED Confirmed by CONCHIS PALOMO, DELFINA ([id number]), newspaper managing editor VERONICA SCOTT ([id number]) on 01/01/2020 1:41:18 PM Referred By: JANA Confirmed By:BAM BALDERRAMA MD
--- NOTE | 2019-12-26 15:51 | CASEMGMT ---
Social Work Notified from nursing patient having chest pain again and mentioning he was lonely. Met with patient for visit. Held conversation with patient on several topics. Discussed patient's chest pain and numbness in his left arm and leg recently. Discussed triggers or stressors, worries/anxiety. Pt expressed he worries being in the hospital due to COVID, doesn't know how things are getting done at home, discouraged about why he isn't feeling better, etc. Pt stated his grandson and family were at his house over the weekend and thoroughly cleaned. He reported that made him feel at ease knowing he did have a good support system and things would get done knowing he nor his cannot do it well any more. Discussed his anxiety/worries and the feelings associated. Inquired about interests or what he does to get his mind off of things. Pt has a tablet in his room that he utilizes and enjoys watching baseball games on the TV in the evenings. His visits every evening thus far. Offered for other self-directed activities to provide in his room - pt declined. Offered for pt to proactively play games on his tablet to not think about his worries. Explained subconscious anxiety and our bodies reactions - such as chest pain, leg pain, etc. Pt understood and appreciative of visit and explanations. Pt did acknowledge enjoying nursing attending to him often today. Offered continued SW visits. NATURAL RESOURCES INSTRUCTOR did offer Backwinder but pt declined. Pt appeared calmer at end of visit. Pt has has a long hx of anxiety/depression, per pt and . Reviewed two medications patient was on - pt stated Remeron was helping him sleep, but would be agreeable to increase in Prozac or addition of anxiety med. Notified nursing. Will continue to follow. Marisa Wu, JOSE CARLOS ALEXANDRAW
[2019-12-26 16:51] LABS: Bedside Glucose 157 mg/dL (70-110)
[2019-12-26] MEDS: Mirtazapine 15 MG Tablet PO (20:50)
[2019-12-26] MEDS: Acetaminophen 325 MG Tablet 650 MG PO (20:50)
[2019-12-26] MEDS: Atorvastatin Calcium 40 MG Tablet PO (20:50)
[2019-12-26 21:31] LABS: Bedside Glucose 187 mg/dL (70-110)
--- NOTE | 2019-12-27 04:17 | NURSING ---
Reviewed and agree with HOOF TRIMMER documentation and charting.
[2019-12-27 06:46] LABS: Bedside Glucose 196 mg/dL (70-110)
[2019-12-27 07:33] VITALS: BP 123/76; PULSE 51; RESP 16; TEMP 36.4; O2SAT 98
[2019-12-27] MEDS: Polyethylene Glycol 3350 17 GM PACKET PO (07:48)
[2019-12-27] MEDS: Heparin Injection (Vial) 5,000 UNIT/ML VIAL 5000 UNIT SC ×2 (07:49→21:54)
[2019-12-27] MEDS: NYSTATIN 500,000 UNIT/5 ML UDC 500000 UNIT PO ×4 (07:49→21:52)
[2019-12-27] MEDS: FLUoxetine 20 MG Capsule 40 MG PO (07:50)
[2019-12-27] MEDS: Furosemide 80 MG Tablet PO (07:50)
[2019-12-27] MEDS: amLODIPine 10 MG Tablet PO (07:50)
[2019-12-27] MEDS: Pantoprazole Sodium 40 MG Tablet PO (07:50)
[2019-12-27] MEDS: Clopidogrel Bisulfate 75 MG Tablet PO (07:50)
[2019-12-27] MEDS: Cyanocobalamin 500 MCG Tablet 1000 MCG PO (07:50)
[2019-12-27] MEDS: Spironolactone 25 MG Tablet PO (07:50)
[2019-12-27] MEDS: Magnesium Oxide 400 MG Tablet PO ×2 (07:50→16:29)
[2019-12-27] MEDS: Isosorbide Mononitrate 60 MG Tablet PO ×2 (07:50→21:53)
[2019-12-27 07:51] VITALS: BP 123/76; PULSE 61
[2019-12-27] MEDS: Glimepiride 2 MG Tablet PO (07:51)
[2019-12-27] MEDS: Aspirin E.C. 81 MG Tablet PO (07:51)
[2019-12-27] MEDS: Metoprolol Tartrate 25 MG Tablet PO ×2 (07:51→21:52)
[2019-12-27] MEDS: Insulin Lispro 100 UNIT/ML INSULN.PEN SC ×4 (07:54→21:53)
[2019-12-27] MEDS: Capsaicin 0.025% 1 APPLIC Tube TOPICAL ×2 (08:03→21:52)
[2019-12-27 08:04] VITALS: PULSE 61
--- NOTE | 2019-12-27 08:20 | PCM.PROGNOTE ---
Subjective: Patient seen, examined, sitting in chair. Yesterday he had 2 episodes of chest pain, 1 episode responded to NTG. He also had numbness right side of face. Today, he has numbness left upper extremity, left lower extremity. EKG unchanged, recent stress test negative, recent MRI brain negative. Patient states he is worried his chest pain is real, he has history of cardiac stents x 6. - Physical Exam Vitals/I&O's: Vital Signs Temp Pulse Resp BP Pulse Ox 97.5 F L 61 16 123/76 H 98 12/27/19 07:33 12/27/19 08:04 12/27/19 07:33 12/27/19 07:51 12/27/19 07:33 Oxygen Delivery Method Room Air Weight: 104.6 kg Body Mass Index (BMI) 34.0 Finger Stick Blood Glucose 209 Intake and Output for Last 24 Hours 12/25/19 12/26/19 12/27/19 23:59 23:59 23:59 Intake Total 1810 / 1810 1770 / 1770 75 / 75 Output Total 1999 2750 / 2750 175 / 175 Balance -190 / -190 -980 / -980 -100 / -100 General: Alert, Oriented x3, Cooperative HEENT: Atraumatic, PERRLA, EOMI, Normocephalic Neck: Supple, No JVD, Negative Carotid Bruits Lungs: Clear to auscultation, Normal air movement Cardiovascular: Regular rate, No murmurs Abdomen: Bowel Sounds Present, Soft, Non Tender Extremities: No edema, Capillary Refill Less than 3 Seconds Skin: No rashes, No breakdown Musculoskeletal: No Tenderness to Palpation of Joints or Extremities Neurological: Cranial nerves II-XII grossly intact Psych/Mental Status: Normal Affect, Appropriate Laboratory Results 12/26/19 06:35: POC Glucose 228 H 12/26/19 08:12: Magnesium 2.1 12/26/19 11:31: POC Glucose 254 H 12/26/19 16:31: POC Glucose 157 H 12/26/19 20:57: POC Glucose 187 H 12/27/19 06:38: POC Glucose 196 H Current Medications Acetaminophen (Tylenol) 650 mg PO Q6H PRN PRN PRN Reason: Pain 1-02/09 Last Admin: 12/26/19 20:50 Dose: 650 mg Documented by: Amlodipine Besylate (Norvasc) 10 mg PO DAILY [facility] Last Admin: 12/27/19 07:50 Dose: 10 mg Documented by: Aspirin (Ecotrin) 81 mg PO DAILY@0800 [facility] Last Admin: 12/27/19 07:51 Dose: 81 mg Documented by: Atorvastatin Calcium (Lipitor) 40 mg PO QHS [facility] Last Admin: 12/26/19 20:50 Dose: 40 mg Documented by: Bisacodyl (Dulcolax) 10 mg RECTAL .PRN X 1 PRN PRN Reason: Constipation Calcium Carbonate (Tums) 500 mg PO Q6H PRN PRN PRN Reason: HEARTBURN OR INDIGESTION Capsaicin (Zostrix) 1 applic TOPICAL BID [facility]; Protocol Last Admin: 12/27/19 08:03 Dose: 1 applicatio Documented by: Cholecalciferol (Vitamin D (25mcg)) 1,000 unit PO DAILY [facility] Last Admin: 12/27/19 07:51 Dose: 1,000 unit Documented by: Clopidogrel Bisulfate (Plavix) 75 mg PO DAILY [facility] Last Admin: 12/27/19 07:50 Dose: 75 mg Documented by: Cyanocobalamin (Vitamin B12) 1,000 mcg PO DAILY [facility] Last Admin: 12/27/19 07:50 Dose: 1,000 mcg Documented by: Fluoxetine HCl (Prozac) 40 mg PO DAILY [facility] Last Admin: 12/27/19 07:50 Dose: 40 mg Documented by: Furosemide (Lasix) 80 mg PO DAILY [facility] Last Admin: 12/27/19 07:50 Dose: 80 mg Documented by: Glimepiride (Amaryl) 2 mg PO DAILYCM [facility] Last Admin: 12/27/19 07:51 Dose: 2 mg Documented by: Heparin Sodium (Porcine) (Heparin Na) 5,000 unit SC Q12 [facility] Last Admin: 12/27/19 07:49 Dose: 5,000 unit Documented by: Insulin Human Lispro (Humalog Kwikpen (Bkc)) 0 unit SC [facility]; Protocol Last Admin: 12/27/19 07:54 Dose: 2 u Documented by: Isosorbide Mononitrate (Imdur) 60 mg PO BID [facility] Last Admin: 12/27/19 07:50 Dose: 60 mg Documented by: Magnesium Hydroxide (Milk Of Magnesia) 30 ml PO .PRN X 1 PRN PRN Reason: Constipation Magnesium Oxide (Mag-Ox 400) 400 mg PO BIDCM [facility] Last Admin: 12/27/19 07:50 Dose: 400 mg Documented by: Metoprolol Tartrate (Lopressor (Beta Kale)) 25 mg PO BID [facility] Last Admin: 12/27/19 07:51 Dose: 25 mg Documented by: Mirtazapine (Remeron) 15 mg PO QHS [facility] Last Admin: 12/26/19 20:50 Dose: 15 mg Documented by: Nitroglycerin (Nitrostat) 0.4 mg SUBLINGUAL . EVERY 5-15 MINUTES PRN PRN Reason: .CHEST PAIN Last Admin: 12/26/19 14:30 Dose: 0.4 mg Documented by: Nystatin (Nystatin) 500,000 unit PO 4X/DAY [facility] Stop: 01/02/20 14:01 Last Admin: 12/27/19 07:49 Dose: 500,000 unit Documented by: Pantoprazole Sodium (Protonix) 40 mg PO DAILY [facility] Last Admin: 12/27/19 07:50 Dose: 40 mg Documented by: Polyethylene Glycol (Miralax) 17 gm PO DAILY [facility] Last Admin: 12/27/19 07:48 Dose: 17 gm Documented by: Potassium Chloride (K-Dur) 40 meq PO BID [facility] Last Admin: 12/27/19 07:50 Dose: 40 meq Documented by: Spironolactone (Aldactone) 25 mg PO DAILY [facility] Last Admin: 12/27/19 07:50 Dose: 25 mg Documented by: Capacity - Capacity Assessment Tool Can the patient make a choice & communicate that choice?: Yes Can the patient understand benefits, risks and alternatives?: Yes Can the patient make a logical, rational choice?: Yes Is the choice the patient makes consistent w/ their values?: Yes Is there an impending, emergent risk to the patient?: No Does the patient have an Advance Directive?: No Is there a Surrogate Available?: Yes i.e. HCPOA: Yes i.e. close relative (spouse, child, parent, sibling)?: Yes Medical Necessity - Tobacco Use Smoking Status: Former smoker Tobacco Use: Cigarettes Assessment/Plan 74 year old male with below past medical history hospitalized for left lower extremity weakness, admitted to for > 3 hours therapy per day, prior to discharge home. Debility - PT/OT. Pain - Tylenol 650MG Q6H PRN pain (1-10). Bowel - Miralax 17GM daily, Dulcolax 10MG [place] daily PRN. DVT prophylaxis - Heparin 5000 units Q12H. Hypertension - Metoprolol 25MG BID, Amlodipine 10MG daily. Coronary Artery Disease - Metoprolol 25MG BID, Imdur 60MG BID, Plavix 75MG daily, Aspirin 81MG daily, NTG 0.4MG PRN. Hyperlipidemia - Atorvastatin 40MG QHS. GERD - Pantoprazole 40MG daily, TUMS 500MG Q6H PRN, MOM 30ML PO PRN. Left shoulder/left knee pain - Zostrix topical BID. Vitamin B12 deficiency - B12 1000MCG daily. Vitamin D deficiency - D3 1000IU daily. Depression - Fluoxetine 40MG daily. Edema - Lasix 80MG daily, Aldactone 25MG daily. Diabetes Mellitus II - Glimepiride 2MG daily, Humalog SSI. Hypomagnesemia - Magnesium Oxide 400MG daily, check magnesium level, increase Magnesium Oxide to 400MG BID. Appetite loss - Mirtazapine 15MG QHS. Thrush - Nystatin 500,000 4x/day thru 01/02/2020. Hypokalemia - K-Dur 40MEQ BID. Chest pain - Persists, Consult Dr. Palacios, or schedule urgent appointment Dr. Palacios to consider if catheterization necessary.
--- NOTE | 2019-12-27 09:45 | NURSING ---
spoke with [facility] pt has an appt with Guillermina LUGO on 01/09/20 @ [id number]
[2019-12-27 11:56] LABS: Bedside Glucose 225 mg/dL (70-110)
[2019-12-27 16:35] LABS: Bedside Glucose 158 mg/dL (70-110)
[2019-12-27] MEDS: Baclofen 10 MG Tablet PO (18:10)
[2019-12-27 19:27] VITALS: BP 129/71; PULSE 55; RESP 16; TEMP 36.7; O2SAT 95
[2019-12-27 19:59] VITALS: PULSE 99
[2019-12-27 21:52] VITALS: PULSE 97
[2019-12-27] MEDS: Mirtazapine 15 MG Tablet PO (21:52)
[2019-12-27] MEDS: Atorvastatin Calcium 40 MG Tablet PO (21:53)
[2019-12-27] MEDS: Acetaminophen 325 MG Tablet 650 MG PO (22:00)
[2019-12-27 22:26] LABS: Bedside Glucose 178 mg/dL (70-110)
[2019-12-28] MEDS: Acetaminophen 325 MG Tablet 650 MG PO (06:40)
[2019-12-28 06:45] LABS: Bedside Glucose 204 mg/dL (70-110)
[2019-12-28] MEDS: Insulin Lispro 100 UNIT/ML INSULN.PEN SC ×4 (07:35→22:44)
[2019-12-28] MEDS: Glimepiride 2 MG Tablet PO (07:36)
[2019-12-28] MEDS: Magnesium Oxide 400 MG Tablet PO ×2 (07:36→16:30)
[2019-12-28] MEDS: Aspirin E.C. 81 MG Tablet PO (07:36)
[2019-12-28] MEDS: Spironolactone 25 MG Tablet PO (07:36)
[2019-12-28] MEDS: Heparin Injection (Vial) 5,000 UNIT/ML VIAL 5000 UNIT SC ×2 (07:37→22:44)
[2019-12-28] MEDS: Furosemide 80 MG Tablet PO (07:37)
[2019-12-28] MEDS: Isosorbide Mononitrate 60 MG Tablet PO ×2 (07:37→22:44)
[2019-12-28] MEDS: Clopidogrel Bisulfate 75 MG Tablet PO (07:38)
[2019-12-28] MEDS: FLUoxetine 10 MG Capsule 50 MG PO (07:38)
[2019-12-28] MEDS: Polyethylene Glycol 3350 17 GM PACKET PO (07:38)
[2019-12-28] MEDS: Cyanocobalamin 500 MCG Tablet 1000 MCG PO (07:38)
[2019-12-28] MEDS: NYSTATIN 500,000 UNIT/5 ML UDC 500000 UNIT PO ×4 (07:38→22:42)
[2019-12-28] MEDS: Pantoprazole Sodium 40 MG Tablet PO (07:38)
[2019-12-28] MEDS: amLODIPine 10 MG Tablet PO (07:38)
[2019-12-28] MEDS: Capsaicin 0.025% 1 APPLIC Tube TOPICAL ×2 (07:39→22:41)
[2019-12-28 07:45] VITALS: PULSE 62
[2019-12-28] MEDS: Metoprolol Tartrate 25 MG Tablet PO ×2 (07:45→22:42)
[2019-12-28 07:50] VITALS: BP 115/76; PULSE 62; RESP 16; TEMP 36.6; O2SAT 96
[2019-12-28 08:07] VITALS: PULSE 62
[2019-12-28 11:16] LABS: Bedside Glucose 258 mg/dL (70-110)
[2019-12-28 16:46] LABS: Bedside Glucose 190 mg/dL (70-110)
[2019-12-28 19:05] VITALS: BP 126/75; PULSE 55; RESP 16; TEMP 36.8; O2SAT 96
[2019-12-28 20:56] LABS: Bedside Glucose 227 mg/dL (70-110)
[2019-12-28 22:42] VITALS: BP 126/75; PULSE 68
[2019-12-28] MEDS: Mirtazapine 15 MG Tablet PO (22:42)
[2019-12-28] MEDS: Atorvastatin Calcium 40 MG Tablet PO (22:43)
[2019-12-29 06:25] LABS: Bedside Glucose 168 mg/dL (70-110)
[2019-12-29] MEDS: Insulin Lispro 100 UNIT/ML INSULN.PEN SC ×4 (07:32→21:28)
[2019-12-29] MEDS: Spironolactone 25 MG Tablet PO (07:33)
[2019-12-29] MEDS: Aspirin E.C. 81 MG Tablet PO (07:33)
[2019-12-29] MEDS: Glimepiride 2 MG Tablet PO (07:33)
[2019-12-29] MEDS: Magnesium Oxide 400 MG Tablet PO ×2 (07:33→16:01)
[2019-12-29] MEDS: Furosemide 80 MG Tablet PO (07:34)
[2019-12-29] MEDS: Heparin Injection (Vial) 5,000 UNIT/ML VIAL 5000 UNIT SC ×2 (07:34→21:26)
[2019-12-29] MEDS: Isosorbide Mononitrate 60 MG Tablet PO ×2 (07:34→21:26)
[2019-12-29] MEDS: Clopidogrel Bisulfate 75 MG Tablet PO (07:37)
[2019-12-29] MEDS: Pantoprazole Sodium 40 MG Tablet PO (07:37)
[2019-12-29] MEDS: NYSTATIN 500,000 UNIT/5 ML UDC 500000 UNIT PO (07:37)
[2019-12-29] MEDS: amLODIPine 10 MG Tablet PO (07:37)
[2019-12-29] MEDS: FLUoxetine 10 MG Capsule 50 MG PO (07:37)
[2019-12-29] MEDS: Polyethylene Glycol 3350 17 GM PACKET PO (07:37)
[2019-12-29] MEDS: Cyanocobalamin 500 MCG Tablet 1000 MCG PO (07:38)
[2019-12-29] MEDS: Capsaicin 0.025% 1 APPLIC Tube TOPICAL ×2 (07:38→21:36)
[2019-12-29 07:41] VITALS: PULSE 58
[2019-12-29] MEDS: Metoprolol Tartrate 25 MG Tablet PO ×2 (07:41→21:27)
[2019-12-29 07:59] VITALS: BP 141/82; PULSE 58; RESP 18; TEMP 36.6; O2SAT 97
[2019-12-29 11:30] LABS: Bedside Glucose 252 mg/dL (70-110)
[2019-12-29 16:06] LABS: Bedside Glucose 192 mg/dL (70-110)
[2019-12-29 21:27] VITALS: BP 132/78; PULSE 64
[2019-12-29] MEDS: Atorvastatin Calcium 40 MG Tablet PO (21:27)
[2019-12-29] MEDS: Mirtazapine 15 MG Tablet PO (21:27)
[2019-12-29 21:31] LABS: Bedside Glucose 254 mg/dL (70-110)
[2019-12-29 22:00] VITALS: BP 132/78; PULSE 64; RESP 18; TEMP 36.7; O2SAT 96
[2019-12-30 06:50] LABS: Bedside Glucose 177 mg/dL (70-110)
[2019-12-30] MEDS: Capsaicin 0.025% 1 APPLIC Tube TOPICAL ×2 (07:38→21:32)
[2019-12-30] MEDS: amLODIPine 10 MG Tablet PO (07:40)
[2019-12-30] MEDS: Isosorbide Mononitrate 60 MG Tablet PO ×2 (07:40→21:33)
[2019-12-30] MEDS: Clopidogrel Bisulfate 75 MG Tablet PO (07:40)
[2019-12-30] MEDS: Furosemide 80 MG Tablet PO (07:40)
[2019-12-30] MEDS: Aspirin E.C. 81 MG Tablet PO (07:40)
[2019-12-30 07:41] VITALS: PULSE 59
[2019-12-30] MEDS: Metoprolol Tartrate 25 MG Tablet PO ×2 (07:41→21:33)
[2019-12-30] MEDS: Magnesium Oxide 400 MG Tablet PO ×2 (07:41→16:41)
[2019-12-30] MEDS: FLUoxetine 10 MG Capsule 50 MG PO (07:41)
[2019-12-30] MEDS: Cyanocobalamin 500 MCG Tablet 1000 MCG PO (07:41)
[2019-12-30] MEDS: Glimepiride 2 MG Tablet PO (07:41)
[2019-12-30] MEDS: Pantoprazole Sodium 40 MG Tablet PO (07:41)
[2019-12-30 07:45] VITALS: BP 132/72; PULSE 61; RESP 18; TEMP 36.5; O2SAT 96
[2019-12-30] MEDS: Spironolactone 25 MG Tablet PO (07:45)
[2019-12-30] MEDS: Heparin Injection (Vial) 5,000 UNIT/ML VIAL 5000 UNIT SC ×2 (07:45→21:34)
[2019-12-30] MEDS: Insulin Lispro 100 UNIT/ML INSULN.PEN SC ×4 (07:47→21:34)
[2019-12-30 12:06] LABS: Bedside Glucose 248 mg/dL (70-110)
[2019-12-30] MEDS: Acetaminophen 325 MG Tablet 650 MG PO (14:35)
[2019-12-30 16:50] LABS: Bedside Glucose 284 mg/dL (70-110)
[2019-12-30 19:29] VITALS: BP 134/71; PULSE 54; RESP 20; TEMP 36.8; O2SAT 94
[2019-12-30 21:15] LABS: Bedside Glucose 215 mg/dL (70-110)
[2019-12-30 21:25] VITALS: PULSE 56; O2SAT 95
[2019-12-30 21:33] VITALS: BP 134/71; PULSE 56
[2019-12-30] MEDS: Atorvastatin Calcium 40 MG Tablet PO (21:33)
[2019-12-30] MEDS: Mirtazapine 15 MG Tablet PO (21:33)
[2019-12-31 06:11] LABS: Bedside Glucose 191 mg/dL (70-110)
[2019-12-31] MEDS: amLODIPine 10 MG Tablet PO (07:29)
[2019-12-31] MEDS: Isosorbide Mononitrate 60 MG Tablet PO ×2 (07:29→20:59)
[2019-12-31] MEDS: FLUoxetine 10 MG Capsule 50 MG PO (07:29)
[2019-12-31] MEDS: Aspirin E.C. 81 MG Tablet PO (07:29)
[2019-12-31] MEDS: Capsaicin 0.025% 1 APPLIC Tube TOPICAL ×2 (07:30→20:59)
[2019-12-31] MEDS: Spironolactone 25 MG Tablet PO (07:31)
[2019-12-31] MEDS: Heparin Injection (Vial) 5,000 UNIT/ML VIAL 5000 UNIT SC ×2 (07:31→20:59)
[2019-12-31 07:32] VITALS: PULSE 59
[2019-12-31] MEDS: Pantoprazole Sodium 40 MG Tablet PO (07:32)
[2019-12-31] MEDS: Magnesium Oxide 400 MG Tablet PO ×2 (07:32→16:34)
[2019-12-31] MEDS: Cyanocobalamin 500 MCG Tablet 1000 MCG PO (07:32)
[2019-12-31] MEDS: Metoprolol Tartrate 25 MG Tablet PO ×2 (07:32→20:59)
[2019-12-31] MEDS: Furosemide 80 MG Tablet PO (07:33)
[2019-12-31] MEDS: Glimepiride 2 MG Tablet PO (07:33)
[2019-12-31] MEDS: Clopidogrel Bisulfate 75 MG Tablet PO (07:33)
[2019-12-31] MEDS: Insulin Lispro 100 UNIT/ML INSULN.PEN SC ×4 (07:34→21:06)
[2019-12-31 08:00] VITALS: BP 130/82; PULSE 54; RESP 18; TEMP 36.4; O2SAT 95
--- NOTE | 2019-12-31 09:04 | NURSING ---
Ambulated in chambers with staff at stand by assist with w/c follow. Gait steady with walker. Ambulated 50 feet.
[2019-12-31 11:46] LABS: Bedside Glucose 263 mg/dL (70-110)
[2019-12-31 16:40] LABS: Bedside Glucose 211 mg/dL (70-110)
[2019-12-31 20:40] VITALS: BP 112/59; PULSE 54; RESP 20; TEMP 36.9; O2SAT 95
[2019-12-31 20:59] VITALS: BP 112/59; PULSE 54
[2019-12-31] MEDS: Atorvastatin Calcium 40 MG Tablet PO (20:59)
[2019-12-31] MEDS: Mirtazapine 15 MG Tablet PO (21:00)
[2019-12-31] MEDS: Acetaminophen 325 MG Tablet 650 MG PO (21:14)
[2019-12-31 21:16] LABS: Bedside Glucose 218 mg/dL (70-110)
--- NOTE | 2020-01-01 04:36 | NURSING ---
reviewed and agree with CANADIAN BACON TIER assessment and functionals.
[2020-01-01 07:01] LABS: Bedside Glucose 205 mg/dL (70-110)
[2020-01-01 07:52] VITALS: BP 126/83; PULSE 57; RESP 18; TEMP 36.4; O2SAT 97
[2020-01-01] MEDS: Insulin Lispro 100 UNIT/ML INSULN.PEN SC ×4 (07:53→20:57)
[2020-01-01] MEDS: Capsaicin 0.025% 1 APPLIC Tube TOPICAL ×2 (07:54→20:51)
[2020-01-01] MEDS: Spironolactone 25 MG Tablet PO (07:55)
[2020-01-01] MEDS: Aspirin E.C. 81 MG Tablet PO (07:55)
[2020-01-01] MEDS: Glimepiride 2 MG Tablet PO (07:55)
[2020-01-01] MEDS: Magnesium Oxide 400 MG Tablet PO ×2 (07:55→16:21)
[2020-01-01] MEDS: Furosemide 80 MG Tablet PO (07:56)
[2020-01-01] MEDS: Isosorbide Mononitrate 60 MG Tablet PO ×2 (07:56→20:50)
[2020-01-01] MEDS: Heparin Injection (Vial) 5,000 UNIT/ML VIAL 5000 UNIT SC ×2 (07:56→20:52)
[2020-01-01 07:57] VITALS: PULSE 57
[2020-01-01] MEDS: Cyanocobalamin 500 MCG Tablet 1000 MCG PO (07:57)
[2020-01-01] MEDS: Pantoprazole Sodium 40 MG Tablet PO (07:57)
[2020-01-01] MEDS: amLODIPine 10 MG Tablet PO (07:57)
[2020-01-01] MEDS: Clopidogrel Bisulfate 75 MG Tablet PO (07:57)
[2020-01-01] MEDS: FLUoxetine 10 MG Capsule 50 MG PO (07:57)
[2020-01-01] MEDS: Metoprolol Tartrate 25 MG Tablet PO ×2 (07:57→20:48)
[2020-01-01 09:04] VITALS: PULSE 57
--- NOTE | 2020-01-01 10:13 | CASEMGMT ---
Social Work IDT met with patient for Team meeting. Discussed patient's progress in therapy. Pt is CGA for sit to stands, ambulating 100 ft CGA with FWW, CGA for LE dressing with sock aid, min toilet transfers and CGA toilet hygiene. ST on working on ST memory, problem solving. Explained Medicare benefit with approved 13 days with DC date 01/03. Offered SNF at DC if pt does not feel ready to DC home. Pt denied SNF and requesting to DC home with . Pt feels confident about being back in his home environment and IDT agrees. Pt agreeable to [facility] PT/OT/ST/SN/SW. SW to assist with anxiety and transition in the home or if pt does need SNF. Pt needs FWW. Pt agreeable for SW to contact about DC plans. Spoke with and explained above. Offered family training before DC. denied and feels comfortable with pt DC home and she can assist. [place] [facility] [place] Referred to [facility] for PT/OT/ST/SN/SW. Plan: DC home 01/03 with JOSE CARLOS Burton CERTIFIED OPTICIAN
[2020-01-01 11:30] LABS: Bedside Glucose 270 mg/dL (70-110)
[2020-01-01 16:31] LABS: Bedside Glucose 178 mg/dL (70-110)
[2020-01-01 19:28] VITALS: BP 133/75; PULSE 65; RESP 18; TEMP 36.8; O2SAT 96
[2020-01-01 20:48] VITALS: PULSE 68
[2020-01-01] MEDS: Atorvastatin Calcium 40 MG Tablet PO (20:49)
[2020-01-01] MEDS: Mirtazapine 15 MG Tablet PO (20:50)
--- NOTE | 2020-01-01 21:02 | PCM.PROGNOTE ---
Subjective: Patient seen on Team Rounds. His chest pain has improved, he is progressing in therapy. He does not want to go to a residential. He is planning on discharge 01/04/2020. No new complaints. - Physical Exam Vitals/I&O's: Vital Signs Temp Pulse Resp BP Pulse Ox 98.3 F 68 18 133/75 H 96 01/01/20 19:28 01/01/20 20:48 01/01/20 19:28 01/01/20 19:28 01/01/20 19:28 Oxygen Delivery Method Room Air Weight: 102.2 kg Body Mass Index (BMI) 34.0 Finger Stick Blood Glucose 209 Intake and Output for Last 24 Hours 12/30/19 12/31/19 01/01/20 23:59 23:59 23:59 Intake Total 1620 / 1620 1680 / 1680 2800 / 2800 Output Total 1900 / 1900 1300 / 1300 2350 / 2350 Balance -280 / -280 380 / 380 450 / 450 General: Alert, Oriented x3, Cooperative HEENT: Atraumatic, PERRLA, EOMI, Normocephalic Neck: Supple, No JVD, Negative Carotid Bruits Lungs: Clear to auscultation, Normal air movement Cardiovascular: Regular rate, No murmurs Abdomen: Bowel Sounds Present, Soft, Non Tender Extremities: No edema, Capillary Refill Less than 3 Seconds Skin: No rashes, No breakdown Musculoskeletal: No Tenderness to Palpation of Joints or Extremities Neurological: Cranial nerves II-XII grossly intact Psych/Mental Status: Normal Affect, Appropriate Laboratory Results 12/31/19 21:06: POC Glucose 218 H 01/01/20 06:51: POC Glucose 205 H 01/01/20 11:28: POC Glucose 270 H 01/01/20 16:23: POC Glucose 178 H Current Medications Acetaminophen (Tylenol) 650 mg PO Q6H PRN PRN PRN Reason: Pain -02/09 Last Admin: 12/31/19 21:14 Dose: 650 mg Documented by: Amlodipine Besylate (Norvasc) 10 mg PO DAILY [facility] Last Admin: 01/01/20 07:57 Dose: 10 mg Documented by: Aspirin (Ecotrin) 81 mg PO DAILY@0800 [facility] Last Admin: 01/01/20 07:55 Dose: 81 mg Documented by: Atorvastatin Calcium (Lipitor) 40 mg PO QHS [facility] Last Admin: 01/01/20 20:49 Dose: 40 mg Documented by: Bisacodyl (Dulcolax) 10 mg RECTAL .PRN X 1 PRN PRN Reason: Constipation Calcium Carbonate (Tums) 500 mg PO Q6H PRN PRN PRN Reason: HEARTBURN OR INDIGESTION Capsaicin (Zostrix) 1 applic TOPICAL BID [facility]; Protocol Last Admin: 01/01/20 20:51 Dose: 1 applicatio Documented by: Cholecalciferol (Vitamin D (25mcg)) 1,000 unit PO DAILY [facility] Last Admin: 01/01/20 07:58 Dose: 1,000 unit Documented by: Clopidogrel Bisulfate (Plavix) 75 mg PO DAILY [facility] Last Admin: 01/01/20 07:57 Dose: 75 mg Documented by: Cyanocobalamin (Vitamin B12) 1,000 mcg PO DAILY [facility] Last Admin: 01/01/20 07:57 Dose: 1,000 mcg Documented by: Fluoxetine HCl (Prozac) 50 mg PO DAILY [facility] Last Admin: 01/01/20 07:57 Dose: 50 mg Documented by: Furosemide (Lasix) 80 mg PO DAILY [facility] Last Admin: 01/01/20 07:56 Dose: 80 mg Documented by: [facility] Last Admin: 01/01/20 07:55 Dose: 2 mg Documented by: Heparin Sodium (Porcine) (Heparin Na) 5,000 unit SC Q12 [facility] Last Admin: 01/01/20 20:52 Dose: 5,000 unit Documented by: Insulin Human Lispro (Humalog Kwikpen (Bkc)) 0 unit SC [facility]; Protocol Last Admin: 01/01/20 16:23 Dose: 1 u Documented by: Isosorbide Mononitrate (Imdur) 60 mg PO BID [facility] Last Admin: 01/01/20 20:50 Dose: 60 mg Documented by: Magnesium Hydroxide (Milk Of Magnesia) 30 ml PO .PRN X 1 PRN PRN Reason: Constipation [facility] ([facility]Ox 400) [facility] Last Admin: 01/01/20 16:21 Dose: 400 mg Documented by: Metoprolol Tartrate (Lopressor (Beta Kale)) 25 mg PO BID [facility] Last Admin: 01/01/20 20:48 Dose: 25 mg Documented by: Mirtazapine (Remeron) 15 mg PO QHS [facility] Last Admin: 01/01/20 20:50 Dose: 15 mg Documented by: Nitroglycerin (Nitrostat) 0.4 mg SUBLINGUAL . EVERY 5-15 MINUTES PRN PRN Reason: .CHEST PAIN Last Admin: 12/26/19 14:30 Dose: 0.4 mg Documented by: Pantoprazole Sodium (Protonix) 40 mg PO DAILY [facility] Last Admin: 01/01/20 07:57 Dose: 40 mg Documented by: Polyethylene Glycol (Miralax) 17 gm PO DAILY [facility] Last Admin: 01/01/20 07:57 Dose: Not Given Documented by: Potassium Chloride (K-Dur) 40 meq PO BID [facility] Last Admin: 01/01/20 20:49 Dose: 40 meq Documented by: Spironolactone (Aldactone) 25 mg PO DAILY [facility] Last Admin: 01/01/20 07:55 Dose: 25 mg Documented by: Capacity - Capacity Assessment Tool Can the patient make a choice & communicate that choice?: Yes Can the patient understand benefits, risks and alternatives?: Yes Can the patient make a logical, rational choice?: Yes Is the choice the patient makes consistent w/ their values?: Yes Is there an impending, emergent risk to the patient?: No Does the patient have an Advance Directive?: No Is there a Surrogate Available?: Yes i.e. HCPOA: Yes i.e. close relative (spouse, child, parent, sibling)?: Yes Medical Necessity - Tobacco Use Smoking Status: Former smoker Tobacco Use: Cigarettes Assessment/Plan 74 year old male with below past medical history hospitalized for left lower extremity weakness, admitted to for > 3 hours therapy per day, prior to discharge home. Debility - PT/OT. Pain - Tylenol 650MG Q6H PRN pain (1-10). Bowel - Miralax 17GM daily, Dulcolax 10MG [place] daily PRN. DVT prophylaxis - Heparin 5000 units Q12H. Hypertension - Metoprolol 25MG BID, Amlodipine 10MG daily. Coronary Artery Disease - Metoprolol 25MG BID, Imdur 60MG BID, Plavix 75MG daily, Aspirin 81MG daily, NTG 0.4MG PRN. Hyperlipidemia - Atorvastatin 40MG QHS. GERD - Pantoprazole 40MG daily, TUMS 500MG Q6H PRN, MOM 30ML PO PRN. Left shoulder/left knee pain - Zostrix topical BID. Vitamin B12 deficiency - B12 1000MCG daily. Vitamin D deficiency - D3 1000IU daily. Depression - Fluoxetine 40MG daily. Edema - Lasix 80MG daily, Aldactone 25MG daily. Diabetes Mellitus II - Glimepiride 2MG daily, Humalog SSI. Hypomagnesemia - Magnesium Oxide 400MG daily, check magnesium level, increase Magnesium Oxide to 400MG BID. Appetite loss - Mirtazapine 15MG QHS. Thrush - Nystatin 500,000 4x/day thru 01/02/2020. Hypokalemia - K-Dur 40MEQ BID. Chest pain - Dr. Palacios appointment after discharge from .
[2020-01-01 21:51] LABS: Bedside Glucose 231 mg/dL (70-110)
[2020-01-01 22:00] VITALS: PULSE 65
[2020-01-02 06:56] LABS: Bedside Glucose 207 mg/dL (70-110)
[2020-01-02 07:45] VITALS: BP 113/57; PULSE 53; RESP 16; TEMP 36.6; O2SAT 96
[2020-01-02] MEDS: Pantoprazole Sodium 40 MG Tablet PO (08:10)
[2020-01-02] MEDS: FLUoxetine 10 MG Capsule 50 MG PO (08:10)
[2020-01-02] MEDS: Cyanocobalamin 500 MCG Tablet 1000 MCG PO (08:10)
[2020-01-02] MEDS: Furosemide 80 MG Tablet PO (08:11)
[2020-01-02] MEDS: amLODIPine 10 MG Tablet PO (08:11)
[2020-01-02] MEDS: Aspirin E.C. 81 MG Tablet PO (08:11)
[2020-01-02] MEDS: Isosorbide Mononitrate 60 MG Tablet PO ×2 (08:11→20:14)
[2020-01-02] MEDS: Spironolactone 25 MG Tablet PO (08:11)
[2020-01-02] MEDS: Insulin Lispro 100 UNIT/ML INSULN.PEN SC ×3 (08:11→20:32)
[2020-01-02] MEDS: Clopidogrel Bisulfate 75 MG Tablet PO (08:11)
[2020-01-02] MEDS: Magnesium Oxide 400 MG Tablet PO ×2 (08:11→16:56)
[2020-01-02] MEDS: Glimepiride 2 MG Tablet PO (08:11)
[2020-01-02 08:12] VITALS: PULSE 60
[2020-01-02] MEDS: Metoprolol Tartrate 25 MG Tablet PO ×2 (08:12→20:15)
[2020-01-02] MEDS: Heparin Injection (Vial) 5,000 UNIT/ML VIAL 5000 UNIT SC ×2 (08:12→20:15)
[2020-01-02] MEDS: Capsaicin 0.025% 1 APPLIC Tube TOPICAL ×2 (08:13→20:29)
--- NOTE | 2020-01-02 08:35 | PN_ITS ---
Subjective: Patient seen today, sitting in chair. He ate all of his breakfast, no new complaints, he is ready to go home in 2 days. - Physical Exam Vitals/I&O's: Vital Signs Temp Pulse Resp BP Pulse Ox 97.8 F 60 16 113/57 L 96 01/02/20 07:45 01/02/20 08:12 01/02/20 07:45 01/02/20 07:45 01/02/20 07:45 Oxygen Delivery Method Room Air Weight: 102.2 kg Body Mass Index (BMI) 34.0 Finger Stick Blood Glucose 209 Intake and Output for Last 24 Hours 12/31/19 01/01/20 01/02/20 23:59 23:59 23:59 Intake Total 1680 / 1680 2920 / 2920 60 / 60 Output Total 1300 / 1300 3000 / 3000 750 / 750 Balance 380 / 380 -80 / -80 -690 / -690 General: Alert, Oriented x3, Cooperative HEENT: Atraumatic, PERRLA, EOMI, Normocephalic Neck: Supple, No JVD, Negative Carotid Bruits Lungs: Clear to auscultation, Normal air movement Cardiovascular: Regular rate, No murmurs Abdomen: Bowel Sounds Present, Soft, Non Tender Extremities: No edema, Capillary Refill Less than 3 Seconds Skin: No rashes, No breakdown Musculoskeletal: No Tenderness to Palpation of Joints or Extremities Neurological: Cranial nerves II-XII grossly intact Psych/Mental Status: Normal Affect, Appropriate Laboratory Results 01/01/20 11:28: POC Glucose 270 H 01/01/20 16:23: POC Glucose 178 H 01/01/20 20:54: POC Glucose 231 H 01/02/20 06:52: POC Glucose 207 H Current Medications Acetaminophen (Tylenol) 650 mg PO Q6H PRN PRN PRN Reason: Pain -02/09 Last Admin: 12/31/19 21:14 Dose: 650 mg Documented by: Amlodipine Besylate (Norvasc) 10 mg PO DAILY [facility] Last Admin: 01/02/20 08:11 Dose: 10 mg Documented by: Aspirin (Ecotrin) 81 mg PO DAILY@0800 [facility] Last Admin: 01/02/20 08:11 Dose: 81 mg Documented by: Atorvastatin Calcium (Lipitor) 40 mg PO QHS [facility] Last Admin: 01/01/20 20:49 Dose: 40 mg Documented by: Bisacodyl (Dulcolax) 10 mg RECTAL .PRN X 1 PRN PRN Reason: Constipation Calcium Carbonate (Tums) 500 mg PO Q6H PRN PRN PRN Reason: HEARTBURN OR INDIGESTION Capsaicin (Zostrix) 1 applic TOPICAL BID [facility]; Protocol Last Admin: 01/02/20 08:13 Dose: 1 applicatio Documented by: Cholecalciferol (Vitamin D (25mcg)) 1,000 unit PO DAILY [facility] Last Admin: 01/02/20 08:10 Dose: 1,000 unit Documented by: Clopidogrel Bisulfate (Plavix) 75 mg PO DAILY [facility] Last Admin: 01/02/20 08:11 Dose: 75 mg Documented by: Cyanocobalamin (Vitamin B12) 1,000 mcg PO DAILY [facility] Last Admin: 01/02/20 08:10 Dose: 1,000 mcg Documented by: Fluoxetine HCl (Prozac) 50 mg PO DAILY [facility] Last Admin: 01/02/20 08:10 Dose: 50 mg Documented by: Furosemide (Lasix) 80 mg PO DAILY [facility] Last Admin: 01/02/20 08:11 Dose: 80 mg Documented by: [facility] ([facility]l) [facility] Last Admin: 01/02/20 08:11 Dose: 2 mg Documented by: Heparin Sodium (Porcine) (Heparin Na) 5,000 unit SC Q12 [facility] Last Admin: 01/02/20 08:12 Dose: 5,000 unit Documented by: Insulin Human Lispro (Humalog Kwikpen (Bkc)) 0 unit SC [facility]; Protocol Last Admin: 01/02/20 08:11 Dose: 2 u Documented by: Isosorbide Mononitrate (Imdur) 60 mg PO BID [facility] Last Admin: 01/02/20 08:11 Dose: 60 mg Documented by: Magnesium Hydroxide (Milk Of Magnesia) 30 ml PO .PRN X 1 PRN PRN Reason: Constipation Magnesium Oxide (Mag-Ox 400) [facility] Last Admin: 01/02/20 08:11 Dose: 400 mg Documented by: Metoprolol Tartrate (Lopressor (Beta Kale)) 25 mg PO BID [facility] Last Admin: 01/02/20 08:12 Dose: 25 mg Documented by: Mirtazapine (Remeron) 15 mg PO QHS [facility] Last Admin: 01/01/20 20:50 Dose: 15 mg Documented by: Nitroglycerin (Nitrostat) 0.4 mg SUBLINGUAL . EVERY 5-15 MINUTES PRN PRN Reason: .CHEST PAIN Last Admin: 12/26/19 14:30 Dose: 0.4 mg Documented by: Pantoprazole Sodium (Protonix) 40 mg PO DAILY [facility] Last Admin: 01/02/20 08:10 Dose: 40 mg Documented by: Polyethylene Glycol (Miralax) 17 gm PO DAILY [facility] Last Admin: 01/02/20 08:13 Dose: Not Given Documented by: Potassium Chloride (K-Dur) 40 meq PO BID [facility] Last Admin: 01/02/20 08:11 Dose: 40 meq Documented by: Spironolactone (Aldactone) 25 mg PO DAILY [facility] Last Admin: 01/02/20 08:11 Dose: 25 mg Documented by: Capacity - Capacity Assessment Tool Can the patient make a choice & communicate that choice?: Yes Can the patient understand benefits, risks and alternatives?: Yes Can the patient make a logical, rational choice?: Yes Is the choice the patient makes consistent w/ their values?: Yes Is there an impending, emergent risk to the patient?: No Does the patient have an Advance Directive?: No Is there a Surrogate Available?: Yes i.e. HCPOA: Yes i.e. close relative (spouse, child, parent, sibling)?: Yes Medical Necessity - Tobacco Use Smoking Status: Former smoker Tobacco Use: Cigarettes Assessment/Plan 74 year old male with below past medical history hospitalized for left lower e xtremity weakness, admitted to for > 3 hours therapy per day, prior to discharge home. * Debility - PT/OT. * Pain - Tylenol 650MG Q6H PRN pain (1-10). * Bowel - Miralax 17GM daily, Dulcolax 10MG [place] daily PRN. * DVT prophylaxis - Heparin 5000 units Q12H. * Hypertension - Metoprolol 25MG BID, Amlodipine 10MG daily. * Coronary Artery Disease - Metoprolol 25MG BID, Imdur 60MG BID, Plavix 75MG daily, Aspirin 81MG daily, NTG 0.4MG PRN. * Hyperlipidemia - Atorvastatin 40MG QHS. * GERD - Pantoprazole 40MG daily, TUMS 500MG Q6H PRN, MOM 30ML PO PRN. * Left shoulder/left knee pain - Zostrix topical BID. * Vitamin B12 deficiency - B12 1000MCG daily. * Vitamin D deficiency - D3 1000IU daily. * Depression - Fluoxetine 40MG daily. * Edema - Lasix 80MG daily, Aldactone 25MG daily. * Diabetes Mellitus II - Glimepiride 2MG daily, Humalog SSI. * Hypomagnesemia - Magnesium Oxide to 400MG BID. * Appetite loss - Mirtazapine 15MG QHS. * Hypokalemia - K-Dur 40MEQ BID. * Chest pain - Adina Mariscal 01/09/2020.
--- NOTE | 2020-01-02 10:44 | NURSING ---
discussed with team and pa d/c'd. pt voiced understanding to continue to you call light for any needs.
[2020-01-02 12:11] LABS: Bedside Glucose 195 mg/dL (70-110)
[2020-01-02 17:01] LABS: Bedside Glucose 128 mg/dL (70-110)
[2020-01-02 19:14] VITALS: BP 116/75; PULSE 54; RESP 18; TEMP 36.9; O2SAT 96
[2020-01-02 20:10] VITALS: PULSE 54; RESP 18
[2020-01-02] MEDS: Atorvastatin Calcium 40 MG Tablet PO (20:14)
[2020-01-02 20:15] VITALS: BP 116/75; PULSE 54
[2020-01-02] MEDS: Mirtazapine 15 MG Tablet PO (20:15)
[2020-01-02 20:41] LABS: Bedside Glucose 267 mg/dL (70-110)
--- NOTE | 2020-01-03 02:53 | NURSING ---
Reviewed and agree with METAL PAINTER documentation and charting.
[2020-01-03 06:50] LABS: Bedside Glucose 187 mg/dL (70-110)
[2020-01-03 07:43] VITALS: BP 127/81; PULSE 53; RESP 16; TEMP 36.4; O2SAT 95
[2020-01-03] MEDS: Insulin Lispro 100 UNIT/ML INSULN.PEN SC ×4 (07:44→20:29)
[2020-01-03] MEDS: Heparin Injection (Vial) 5,000 UNIT/ML VIAL 5000 UNIT SC ×2 (07:44→20:23)
[2020-01-03] MEDS: Magnesium Oxide 400 MG Tablet PO ×2 (07:50→16:29)
[2020-01-03] MEDS: Spironolactone 25 MG Tablet PO (07:50)
[2020-01-03] MEDS: Isosorbide Mononitrate 60 MG Tablet PO ×2 (07:50→20:24)
[2020-01-03] MEDS: Glimepiride 2 MG Tablet PO (07:50)
[2020-01-03] MEDS: Aspirin E.C. 81 MG Tablet PO (07:50)
[2020-01-03 07:51] VITALS: PULSE 58
[2020-01-03] MEDS: Furosemide 80 MG Tablet PO (07:51)
[2020-01-03] MEDS: Metoprolol Tartrate 25 MG Tablet PO ×2 (07:51→20:24)
[2020-01-03] MEDS: Cyanocobalamin 500 MCG Tablet 1000 MCG PO (07:52)
[2020-01-03] MEDS: FLUoxetine 10 MG Capsule 50 MG PO (07:52)
[2020-01-03] MEDS: Pantoprazole Sodium 40 MG Tablet PO (07:52)
[2020-01-03] MEDS: amLODIPine 10 MG Tablet PO (07:52)
[2020-01-03] MEDS: Clopidogrel Bisulfate 75 MG Tablet PO (07:52)
[2020-01-03] MEDS: Capsaicin 0.025% 1 APPLIC Tube TOPICAL ×2 (07:53→20:24)
--- NOTE | 2020-01-03 08:30 | DCINST_ITS ---
You will use the following diet at home:: No restrictions, Regular Your food should be the consistency of: Regular Your liquids should be the consistency of: Regular/Thin Discharge Activity: Return to Normal Activity, May Shower, Use Walker Weight Bearing Status: Weight bearing as tolerated Call your doctor if you observe: Fever of 101 or Higher, Inability to urinate, Inability to have a bowel movement, Shortness of breath, Chest pain, Uncontrolled pain Allergies/Adverse Reactions: Allergies No Known Allergies Allergy (Verified 12/20/19 12:15) Medications to take at Discharge Aspirin E.C. [Ecotrin] 81 mg PO DAILY@0800 01/21/17 fluoxetine 40 mg capsule 40 mg PO DAILY 90 Days #90 cap 09/21/18 mirtazapine 15 mg tablet 15 mg PO QHS tab 09/21/18 Cyanocobalamin (Vitamin B-12) [Vitamin B-12] 1,000 mcg PO DAILY #0 06/01/19 Ergocalciferol (Vitamin D2) [Vitamin D2] 50 mcg PO DAILY #0 06/01/19 clopidogrel 75 mg tablet 75 mg PO DAILY #90 tab 07/07/19 potassium chloride 20 mEq tablet,extended release(part/cryst) 40 meq PO BID #360 tab 07/31/19 spironolactone 25 mg tablet 25 mg PO DAILY #90 tab 07/31/19 isosorbide mononitrate 60 mg tablet,extended release 24 hr 60 mg PO BID #180 tab 12/04/19 nitroglycerin 0.4 mg sublingual tablet 0.4 mg SUBLINGUAL Q5-15M PRN #25 tab 12/04/19 amlodipine 10 mg tablet 10 mg PO DAILY tab 12/05/19 furosemide 40 mg tablet 80 mg PO DAILY #180 tab 12/05/19 magnesium oxide 400 mg (241.3 mg magnesium) tablet 400 mg PO DAILY tab 12/05/19 Atorvastatin Calcium [Lipitor] 40 mg PO QHS 12/20/19 Glimepiride [Amaryl] 2 mg PO DAILY 12/20/19 Metoprolol Tartrate 25 mg PO BID 12/20/19 Pantoprazole Sodium [Protonix] 40 mg PO DAILY 12/20/19 Acetaminophen [Tylenol Tablet] 650 mg PO Q6H PRN PRN tablet 01/03/20 Primary Care Physician: Victor M Luke DO [Primary Care Provider] - Please follow up with your Primary Care Physician in: 1 week. Test Results: Test results from this visit will be discussed in further detail at your follow- up appointment, if applicable. Please Follow Up With: Adina Pablo-Cardiology When: 01/09/2020 Please Follow Up With: Dr. Victor M Luke-PCP When: Wednesday Proposed Discharge Date: 01/04/20
--- NOTE | 2020-01-03 08:32 | PCM.DC.SUM ---
Discharge Date and Diagnosis Date of Admission: 12/22/19 Date of Discharge: 01/04/20 - Secondary Discharge Diagnosis Chronic Problems: Chronic Problems (Last Reviewed 12/23/19 @ 13:[address] 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 Patient has had angioplasty and drug-eluting stenting with a small 2.25 mm stent several its ago. 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 Alexandr Mcclain 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, stage 3 (Chronic) Obstructive sleep apnea (Chronic) TIA (transient ischemic attack) (Chronic) Atherosclerotic heart disease [place] coronary artery w/angina pectoris (Chronic) 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 Procedure aborted. 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 Procedure aborted. No complications. 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 PCI-POBA-Cx and Stent-Mid RCA x 2 Multi Link Mini Vision Rx Stent 4.0 x 28 mm 01/21/2006 Hospital Course and Treatment Imaging Results: 12/22/19 14:55 Diet: Cardiac: Calorie-Controlled Is pt able to select menu?: Yes How many daily calories?: 1800 calorie Labs (Last 48 Hours) 01/01/20 01/01/20 01/01/20 11:28 16:23 20:54 POC Glucose 270 H 178 H 231 H 01/02/20 01/02/20 01/02/20 06:52 12:07 16:52 POC Glucose 207 H 195 H 128 H 01/02/20 01/03/20 20:31 06:46 POC Glucose 267 H 187 H Operations: None Procedures: None Summary of Care Provided: The patient is a 74 year old Male with below past medical history hospitalized for left lower extremity weakness, admitted to for > 3 hours therapy per day, prior to discharge home. Stroke ruled out. Discharge home with , [facility] PT/OTST/SN/SW, [employer] Front wheel walker. - Physical Exam Vitals/I&O's: Vital Signs Temp Pulse Resp BP Pulse Ox 97.6 F L 58 L 16 127/81 H 95 01/03/20 07:43 01/03/20 07:51 01/03/20 07:43 01/03/20 07:43 01/03/20 07:43 Oxygen Delivery Method Room Air Weight: 102.2 kg Body Mass Index (BMI) 34.0 Finger Stick Blood Glucose 209 Intake and Output for Last 24 Hours 01/01/20 01/02/20 01/03/20 23:59 23:59 23:59 Intake Total 2920 / 2920 1160 / 1160 480 / 480 Output Total 3000 / 3000 2475 / 2475 450 / 450 Balance -80 / -80 -1315 / -1315 30 / 30 Laboratory Results 01/02/20 12:07: POC Glucose 195 H 01/02/20 16:52: POC Glucose 128 H 01/02/20 20:31: POC Glucose 267 H 01/03/20 06:46: POC Glucose 187 H Current Medications Acetaminophen (Tylenol) 650 mg PO Q6H PRN PRN PRN Reason: Pain 1-02/09 Last Admin: 12/31/19 21:14 Dose: 650 mg Documented by: Amlodipine Besylate (Norvasc) 10 mg PO DAILY [facility] Last Admin: 01/03/20 07:52 Dose: 10 mg Documented by: Aspirin (Ecotrin) 81 mg PO DAILY@0800 [facility] Last Admin: 01/03/20 07:50 Dose: 81 mg Documented by: Atorvastatin Calcium (Lipitor) 40 mg PO QHS [facility] Last Admin: 01/02/20 20:14 Dose: 40 mg Documented by: Bisacodyl (Dulcolax) 10 mg RECTAL .PRN X 1 PRN PRN Reason: Constipation Calcium Carbonate (Tums) 500 mg PO Q6H PRN PRN PRN Reason: HEARTBURN OR INDIGESTION Capsaicin (Zostrix) 1 applic TOPICAL BID [facility]; Protocol Last Admin: 01/03/20 07:53 Dose: 1 applicatio Documented by: Cholecalciferol (Vitamin D (25mcg)) 1,000 unit PO DAILY [facility] Last Admin: 01/03/20 07:52 Dose: 1,000 unit Documented by: Clopidogrel Bisulfate (Plavix) 75 mg PO DAILY [facility] Last Admin: 01/03/20 07:52 Dose: 75 mg Documented by: Cyanocobalamin (Vitamin B12) 1,000 mcg PO DAILY [facility] Last Admin: 01/03/20 07:52 Dose: 1,000 mcg Documented by: Fluoxetine HCl (Prozac) 50 mg PO DAILY [facility] Last Admin: 01/03/20 07:52 Dose: 50 mg Documented by: Furosemide (Lasix) 80 mg PO DAILY [facility] Last Admin: 01/03/20 07:51 Dose: 80 mg Documented by: [facility] Admin: 01/03/20 07:50 Dose: 2 mg Documented by: Heparin Sodium (Porcine) (Heparin Na) 5,000 unit SC Q12 [facility] Last Admin: 01/03/20 07:44 Dose: 5,000 unit Documented by: Insulin Human Lispro (Humalog Kwikpen (Bkc)) 0 unit SC ACHS [facility]; Protocol Last Admin: 01/03/20 07:44 Dose: 1 u Documented by: Isosorbide Mononitrate (Imdur) 60 mg PO BID [facility] Last Admin: 01/03/20 07:50 Dose: 60 mg Documented by: Magnesium Hydroxide (Milk Of Magnesia) 30 ml PO .PRN X 1 PRN PRN Reason: Constipation Magnesium Oxide (Mag-Ox 400) [facility] Last Admin: 01/03/20 07:50 Dose: 400 mg Documented by: Metoprolol Tartrate (Lopressor (Beta Kale)) 25 mg PO BID [facility] Last Admin: 01/03/20 07:51 Dose: 25 mg Documented by: Mirtazapine (Remeron) 15 mg PO QHS [facility] Last Admin: 01/02/20 20:15 Dose: 15 mg Documented by: Nitroglycerin (Nitrostat) 0.4 mg SUBLINGUAL . EVERY 5-15 MINUTES PRN PRN Reason: .CHEST PAIN Last Admin: 12/26/19 14:30 Dose: 0.4 mg Documented by: Pantoprazole Sodium (Protonix) 40 mg PO DAILY [facility] Last Admin: 01/03/20 07:52 Dose: 40 mg Documented by: Polyethylene Glycol (Miralax) 17 gm PO DAILY [facility] Last Admin: 01/03/20 07:51 Dose: Not Given Documented by: Potassium Chloride (K-Dur) 40 meq PO BID [facility] Last Admin: 01/03/20 07:51 Dose: 40 meq Documented by: Spironolactone (Aldactone) 25 mg PO DAILY [facility] Last Admin: 01/03/20 07:50 Dose: 25 mg Documented by: Discharge Diet: No Restrictions Discharge Activity: Return to Normal Activity, May Shower, Use Walker Weight Bearing Status: Weight bearing as tolerated Call your doctor if you observe: Fever of 101 or Higher, Inability to urinate, Inability to have a bowel movement, Shortness of breath, Chest pain, Uncontrolled pain Home Medications: Medications to take at Discharge Aspirin E.C. [Ecotrin] 81 mg PO DAILY@0800 01/21/17 fluoxetine 40 mg capsule 40 mg PO DAILY 90 Days #90 cap 09/21/18 mirtazapine 15 mg tablet 15 mg PO QHS tab 09/21/18 Cyanocobalamin (Vitamin B-12) [Vitamin B-12] 1,000 mcg PO DAILY #0 06/01/19 Ergocalciferol (Vitamin D2) [Vitamin D2] 50 mcg PO DAILY #0 06/01/19 clopidogrel 75 mg tablet 75 mg PO DAILY #90 tab 07/07/19 potassium chloride 20 mEq tablet,extended release(part/cryst) 40 meq PO BID #360 tab 07/31/19 spironolactone 25 mg tablet 25 mg PO DAILY #90 tab 07/31/19 isosorbide mononitrate 60 mg tablet,extended release 24 hr 60 mg PO BID #180 tab 12/04/19 nitroglycerin 0.4 mg sublingual tablet 0.4 mg SUBLINGUAL Q5-15M PRN #25 tab 12/04/19 amlodipine 10 mg tablet 10 mg PO DAILY tab 12/05/19 furosemide 40 mg tablet 80 mg PO DAILY #180 tab 12/05/19 magnesium oxide 400 mg (241.3 mg magnesium) tablet 400 mg PO DAILY tab 12/05/19 Atorvastatin Calcium [Lipitor] 40 mg PO QHS 12/20/19 Glimepiride [Amaryl] 2 mg PO DAILY 12/20/19 Metoprolol Tartrate 25 mg PO BID 12/20/19 Pantoprazole Sodium [Protonix] 40 mg PO DAILY 12/20/19 Acetaminophen [Tylenol Tablet] 650 mg PO Q6H PRN PRN tablet 01/03/20 Primary Care Physician: Victor M Luke, [Primary Care Provider] - Please follow up with your Primary Care Physician in: 1 week. Please Follow Up With: Adina Pablo-Cardiology When: 01/09/2020 Please Follow Up With: Dr. Victor M Luke-PCP When: Wednesday Disposition: Home with Home Health Minutes spent on discharge:: 35 Patient Condition:: Stable Medical Necessity - Tobacco Use Smoking Status: Former smoker Tobacco Use: Cigarettes Meaningful Use Info Meaningful Use Diagnoses (Choose all that apply): None applicable
[2020-01-03 08:55] VITALS: PULSE 58
[2020-01-03 11:51] LABS: Bedside Glucose 160 mg/dL (70-110)
[2020-01-03 16:35] LABS: Bedside Glucose 180 mg/dL (70-110)
[2020-01-03 20:24] VITALS: PULSE 62
[2020-01-03] MEDS: Mirtazapine 15 MG Tablet PO (20:24)
[2020-01-03] MEDS: Atorvastatin Calcium 40 MG Tablet PO (20:24)
[2020-01-03 21:01] LABS: Bedside Glucose 205 mg/dL (70-110)
[2020-01-03 21:45] VITALS: BP 125/70; PULSE 62; RESP 16; TEMP 37; O2SAT 96
[2020-01-04 07:10] LABS: Bedside Glucose 201 mg/dL (70-110)
[2020-01-04] MEDS: Heparin Injection (Vial) 5,000 UNIT/ML VIAL 5000 UNIT SC (07:45)
[2020-01-04] MEDS: Pantoprazole Sodium 40 MG Tablet PO (07:46)
[2020-01-04] MEDS: Cyanocobalamin 500 MCG Tablet 1000 MCG PO (07:46)
[2020-01-04] MEDS: FLUoxetine 10 MG Capsule 50 MG PO (07:46)
[2020-01-04] MEDS: Isosorbide Mononitrate 60 MG Tablet PO (07:46)
[2020-01-04] MEDS: Spironolactone 25 MG Tablet PO (07:46)
[2020-01-04 07:47] VITALS: BP 117/61; PULSE 61
[2020-01-04] MEDS: Clopidogrel Bisulfate 75 MG Tablet PO (07:47)
[2020-01-04] MEDS: Insulin Lispro 100 UNIT/ML INSULN.PEN SC (07:47)
[2020-01-04] MEDS: Furosemide 80 MG Tablet PO (07:47)
[2020-01-04] MEDS: Metoprolol Tartrate 25 MG Tablet PO (07:47)
[2020-01-04] MEDS: Magnesium Oxide 400 MG Tablet PO (07:47)
[2020-01-04] MEDS: amLODIPine 10 MG Tablet PO (07:47)
[2020-01-04] MEDS: Glimepiride 2 MG Tablet PO (07:47)
[2020-01-04] MEDS: Aspirin E.C. 81 MG Tablet PO (07:47)
[2020-01-04] MEDS: Capsaicin 0.025% 1 APPLIC Tube TOPICAL (07:48)
[2020-01-04 07:57] VITALS: BP 117/61; PULSE 61; RESP 16; TEMP 36.7; O2SAT 96
[2020-01-04 10:23] VITALS: BP 117/61; PULSE 61; RESP 16; TEMP 36.7; O2SAT 96
--- NOTE | 2020-01-04 10:24 | NURSING ---
discharged home with . discharged instructions, mediations and appointments discussed with pt. denies questions or concerns.
== END 2020-01-04 10:28 | disposition home health service (06) | DRG 948 ==
PROVIDERS: Family Medicine Geriatric Medicine; PCP Family Medicine
DX: R53.1 Weakness (principal); I50.30 Unspecified diastolic (congestive) heart failure; I13.0 Hypertensive heart and chronic kidney disease with heart failure and stage 1 through stage 4 chronic kidney disease, or unspecified chronic kidney disease; Q24.5 Malformation of coronary vessels; E11.9 Type 2 diabetes mellitus without complications; R07.9 Chest pain, unspecified; N18.3 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, stage 3 (moderate); I25.10 Atherosclerotic heart disease of native coronary artery without angina pectoris; J44.9 Chronic obstructive pulmonary disease, unspecified; E66.9 Obesity, unspecified; G47.33 Obstructive sleep apnea (adult) (pediatric); E78.5 Hyperlipidemia, unspecified; Z68.34 Body mass index [BMI] 34.0-34.9, adult; K21.9 Gastro-esophageal reflux disease without esophagitis; F32.9 Major depressive disorder, single episode, unspecified; B37.9 Candidiasis, unspecified; M25.562 Pain in left knee; M25.512 Pain in left shoulder; E87.6 Hypokalemia; E55.9 Vitamin D deficiency, unspecified; R20.0 Anesthesia of skin; Z86.73 Personal history of transient ischemic attack (TIA), and cerebral infarction without residual deficits; Z87.891 Personal history of nicotine dependence
CPT/HCPCS: 36415; 82962; 83735; 92507; 92523; 93005; 97110; 97116; 97129; 97130; 97163; 97166; 97530; 97535; 97803

== ENCOUNTER → 2020-01-10 09:33 | Outpatient (CLI) | payer MEDICARE, OTHER, SELFPAY ==
[2018-08-03 13:04] VITALS: BMI 19.8
[2020-01-09 14:32] VITALS: BMI 34.0
[2020-01-10 12:36] LABS: AST(SGOT) 29 U/L (15-37); Alanine Aminotransfer ALT/SGPT 50 U/L (16-61); Albumin, Serum 3.2 g/dL (3.2-5.0); Alkaline Phosphatase 180 U/L (45-117); Bilirubin, Direct 0.28 mg/dL (0.00-0.30); Cholesterol 147 mg/dL (200); Globulin 3.6 g/dL (2.2-4.2); High Density Lipoprotein 41 mg/dL; Protein, Total 6.8 g/dL (6.4-8.2); Triglycerides 208 mg/dL; Very Low Density Lipoprotein 42 mg/dL (5-40)
[2020-01-10 12:50] LABS: Hemoglobin A1c 9.2 % (3.8-5.6)
== END ==
PROVIDERS: Internal Medicine Cardiovascular Disease; PCP Family Medicine; Visit Provider Family Medicine
DX: E11.9 Type 2 diabetes mellitus without complications (principal); I25.119 Atherosclerotic heart disease of native coronary artery with unspecified angina pectoris; E78.5 Hyperlipidemia, unspecified
CPT/HCPCS: 36415; 80061; 80076; 83036

== ENCOUNTER 2020-01-12 17:18 | Emergency (ER) | payer MEDICARE, OTHER, SELFPAY ==
[2018-08-03 13:04] VITALS: BMI 19.8
[2020-01-09 14:32] VITALS: BMI 34.0
[2020-01-12] VITALS (8 sets, daily range): BP systolic 133–169; BP diastolic 78–87; PULSE 60–82; RESP 15–21; TEMP 36.5; O2SAT 96–98; BMI 33.0
--- NOTE | 2020-01-12 17:20 | CT_ITS ---
STUDY: CT BRAIN WITHOUT CONTRAST REASON FOR EXAM: Male, 74 years old. Suspected stroke RADIATION DOSAGE (If Supplied By Facility): CTDIvol = ( 44.99 ) mGy, DLP = ( 863.60 ) mGycm TECHNIQUE: Transaxial CT imaging of the brain was performed without administration of intravenous contrast material. Individualized dose optimization techniques were used for this CT. COMPARISON: December 20 2019 FINDINGS: Brain parenchyma is without focal lesions, mass effect, acute intracranial hemorrhage, extra parenchymal fluid collections, hydrocephalus or herniation. The skull is intact. CT/Brain/Head without Contrast IMPRESSION: 1. Normal CT brain. N.B. : The above information has been verbally conveyed by Niki Cast to Rasheed Canela MD, MD, on 01/12/2020 17:44:03 (ET). Electronically Signed: Niki Cast, at 17:44 EDT Tel , Service support ,
--- NOTE | 2020-01-12 17:20 | EKG12_ITS ---
Test Reason : STROKE Blood Pressure : / mmHG Vent. Rate : 073 BPM Atrial Rate : 073 BPM P-R Int : 184 ms QRS Dur : 088 ms QT Int : 396 ms P-R-T Axes : 056 054 047 degrees QTc Int : 436 ms Poor data quality, interpretation may be adversely affected Normal sinus rhythm Normal ECG Confirmed by NAOMIE PALOMO, PARVEZ ([id number]), avid editor MARLENY SIMENTAL ([id number]) on 01/15/2020 2:06:15 PM Referred By: KEYANNA Confirmed By:PARVEZ AKBAR MD
--- NOTE | 2020-01-12 17:22 | CT_ITS ---
STUDY: CTA HEAD AND NECK WITH CONTRAST REASON FOR EXAM: Male, 74 years old. POSS STROKE. RADIATION DOSAGE (If Supplied By Facility): CTDIvol = ( 22.545 ) mGy, DLP = ( 753.89 ) mGycm TECHNIQUE: CT angiography was performed with a multi-detector CT scanner. Data acquisition was obtained from the skull base through the vertex following intravenous administration of IV. MIP images were reconstructed from the axial data set. Post-processing of the angiographic images was performed, with multiplanar reformation and 3D reconstruction. Individualized dose optimization techniques were used for this CT. COMPARISON: No relevant priors. 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 Right common carotid, right subclavian, left common carotid and left occluded arteries are patent. Vertebral arteries arise bilaterally from the subclavian arteries and a patent in the cervical intraosseous segments. Bilateral internal and external carotid arteries are patent in the cervical segments. Base of skull carotids are patent. Right bifurcation is normal with bilateral anterior cerebral arteries arising from the right. 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 Left base of skull carotids, MCA and bifurcation are normal. There is a origin left EDGE BANDING OFF BEARER and moderately large right posterior communicating artery. Posterior cerebral arteries, superior cerebellar arteries, basilar and dominant right bilateral vertebral arteries are patent. Dural venous sinuses are patent. Soft tissues of the neck are unremarkable with patent airway and cervical spinal surgery. CT/CTA Head AND Neck W/ Contrast IMPRESSION: Patent craniocervical arteries. N.B. : The above information has been verbally conveyed by Niki Cast to Rasheed Canela on 01/12/2020 17:43:59 (ET). Electronically Signed: Niki Cast, at 17:48 EDT Tel , Service support ,
--- NOTE | 2020-01-12 17:26 | CM.ED ---
Social Work Responding to stroke alert. Family coping appropriately. No needs identified/voiced. Social Work to continue to follow as needed. Max Link SUBSTATION OPERATOR TRANSFORMING, TUMBLERS SUPERVISOR
[2020-01-12 17:44] LABS: Absolute Lymphocyte Count 1.76 X10^3/uL (0.83-4.51); Absolute Neutrophil Count 5.9 X10^3/uL (2.0-7.7); Basophil# 0.03 X10^3/uL; Basophil% 0.3 % (0-1); Eosinophils% 1.2 % (0-5); Hematocrit 46.7 % (40-54); Hemoglobin 15.3 g/dL (13.0-16.5); Lymphocyte # 1.76 X10^3/ul (4.0); Lymphocyte % 20.4 % (19-41); Mean Corp Hgb Conc 32.8 g/dL (32-36); Mean Corpuscular Hgb 28.8 pg (27.0-32.0); Mean Corpuscular Volume 87.8 fL (80-94); Mean Platelet Vol. 12.4 fl (6.2-12.0); Monocyte# 0.77 X10^3/uL; Monocyte% 8.9 % (0-10); NRBC Flagged by Analyzer 0 % (0-5); Neutrophil # 5.94 X10^3/uL (2.7-7.7); Neutrophil % 68.9 % (47-70); Platelet Count 147 K/mm3 (150-450); RBC Distribution Width CV 13.8 % (11.6-14.6); RBC Distribution Width SD 44.1 fl (35.1-43.9); Red Blood Count 5.32 M/mm3 (4.6-6.2); White Blood Count 8.6 K/mm3 (4.4-11.0)
--- NOTE | 2020-01-12 17:47 | ED.DCSUM_ITS ---
History of Present Illness Chief Complaint: Neuro S/Sx Informant: Patient, Family, Director Of Consumer Marketing Onset: Today - 1430 Context: Sudden Onset Timing: Continuous Quality and Location: - - Confusion, problems with speech, bilateral weakness Current Severity: Moderate Maximum Severity: Moderate Worsened by: Unknown Relieved by: Nothing Associated Symptoms: - - No associated symptoms Narrative: Patient is an elderly male who had a lengthy stay recently for stroke work-up. There was controversy/debate whether he did or did not have a stroke according to family members. Patient initially did not speak. When I talked the room he did speak. When assessed for weakness his arm dropped initially like a jackknife. He then had a steady smooth fall bilaterally. He does report altered sensation. This was communicated by him shaking his head yes or no to questions asked. Patient has numerous bruises on his body. He is on aspirin and Plavix. Prior similar symptoms: Yes Recent Illness/Hospitalization: Yes - Past Medical History (1) Atherosclerotic heart disease [place] coronary artery w/angina pectoris Status: Chronic Comment: 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 Procedure aborted. 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 PCI-POBA-Cx and Stent-Mid RCA x 2 Multi Link Mini Vision Rx Stent 4.0 x 28 mm 01/21/2006 (2) CHF (congestive heart failure) Status: Chronic (3) COPD (chronic obstructive pulmonary disease) Status: Chronic (4) 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, stage 3 Status: Chronic (5) History of melanoma Status: Chronic (6) Hyperlipidemia Status: Chronic (7) Hypertension Status: Chronic (8) 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.9) Status: Chronic (9) Obstructive sleep apnea Status: Chronic (10) Type 2 diabetes mellitus without complications Status: Chronic Past Medical History - Allergies and Home Meds Allergies/Adverse Reactions: Allergies No Known Allergies Allergy (Verified 01/12/20 17:35) Primary Care Physician: Victor M Luke DO [Primary Care Provider] - Prior records reviewed: Yes Surgical History: angioplasty, herniorrhaphy, tonsillectomy, TURP, - - PCI ?6, tonsillectomy, cholecystectomy, TURP, hernia repair ?2, left shoulder surgery, neck cyst removal. Lives: Spouse/ Significant Other Smoking Status: Former smoker Alcohol: None Drugs: None - Family History Maternal Family History: Reports: - - Denies maternal cardiac history Paternal Family History: Reports: - - Father with a history of Parkinson's disease and prostate cancer Review of Systems ROS: Unable to Obtain - History is limited due to patient not speaking. He will shake yes or no to questions asked. Neurological: Reports: Weakness, Parasthesia STROKE Vital Signs/Narrative: Vital Signs Temp Pulse Resp BP Pulse Ox 01/12/20 17:35 97.7 F L 65 21 H 151/83 H 97 01/12/20 17:21 69 19 H 143/87 H 96 01/12/20 17:20 98 Inital Vital Signs reviewed: Yes - NIHSS Initial 1a Level of Consciousness: 0 1b LOC Questions (Score 2 if aphasic/stupor): 2 1c LOC Commands (Only score 1st attempt): 0 2 Best Gaze (If aphasic, use reflexive mvmts.): 0 3 Visual: 0 4 Facial Palsy: 1 5 Motor Arm Right (UN = amputation/fusion): 1 5 Motor Arm Left: 1 6 Motor Leg Right: 2 6 Motor Leg Left: 2 7 Limb ataxia (Only + if out of proportion): 0 - When patient was asked to perform [id number] he lifted his arm off the bed to touch his nose both on the right and left side. 8 Sensory (Aphasia/stupor=0 or 1, coma=2): 1 9 Best Language: 0 10 Dysarthria (mute, coma=2, intubated=UN): UN 11 Extinction and Inattention (only scored if +): 0 Total Score: 10 General: Well nourished, Well developed Head: Normocephalic, Atraumatic Eyes: Perrl, EOMI ENT: Moist mucous membranes, No rhinorrhea Neck: Supple, Nontender Cardiovascular: Regular rate, Regular rhythm, No murmurs Respiratory: No distress, CTA bilaterally, Chest nontender Abdomen: Soft, Nontender, Nondistended, Normal bowel sounds Back: Nontender, Normal Inspection Extremities: Nontender, No edema Skin: Normal color, No rash Neurological: Alert. Negative for: Oriented x3, Cranial nerves II-XII grossly intact, Normal Strength, Normal Sensation Psychological: Depressed Diagnostic/Tx/Re-eval - Medical Decision Making Stroke Team Activated: Yes Reviewed Inclusion/Exclusion criteria: Yes Was Patient considered for Endovascular Intervention?: No IV Alteplase (t-PA) Administered: No No contraindications for IV Alteplase (t-PA) administration.: Yes Alteplase (t-PA) risks, benefits, alternative discussed: No With multiple bruises need to rule out intracranial bleed i.e. epidural, subdural, traumatic subarachnoid hemorrhage versus spontaneous subarachnoid hemorrhage, and intraparenchymal bleed. Patient has an inconsistent exam based on neuro anatomy. Concern patient has conversion reaction. Stroke order set was initiated. [facility] was contacted. Spoke with the neurologist in private. He agrees patient has a conversion reaction. In light of this the patient and his were informed. Had case management see patient to arrange outpatient follow-up for evaluation and dealing with his present issues. ED Disposition - Plan for ED Patient: Disposition: Home or Assisted Living Diagnosis: Conversion reaction Instructions: ED Conversion Disdr Conversion Reac Referrals: Victor M Luke DO [Primary Care Provider] - As soon as possible
[2020-01-12 17:56] LABS: Prothrombin Time (Protime)PT. 12.5 SECONDS (11.7-14.9)
--- NOTE | 2020-01-12 17:56 | CM.ED ---
Social Work Dr. Canela diagnosis patient with conversion disorder and requesting for social work services to assist with community resources. Met with patient and patient spouse in room. Patient/patient spouse remembering this drug abuse social worker from prior interaction this visit. Patient providing permission for this drug abuse social worker to speak openly with patient spouse present. Patient aware of conversion disorder diagnosis. Patient reports to have a history of Anxiety and to have recently had an increase in patient Anxiety medications that are prescribed by patient primary care physician. Patient denies having active mental health services in the community. Patient open to receiving information about mental health resources. Active support and listening provided. This drug abuse social worker able to normalize patient current thoughts/emotions. Resources provided to patient spouse. Max BRANCH, JUAN
[2020-01-12 18:05] LABS: Anion Gap 4 (5-15); BUN 13 mg/dL (7-18); BUN/Creat Ratio 9.8 RATIO (10-20); Calcium,Total 8.8 mg/dL (8.5-10.1); Chloride 103 mmol/L (98-107); Creatinine, Serum 1.32 mg/dL (0.70-1.30); EST Glomerular Filtration Rate 56 mL/min (>60); Est Glom Filt Rate - Afr Amer 68 mL/min (>60); Estimated Creatinine Clearance 52.29 ml/min; Glucose 303 mg/dL (74-106); Potassium 3.8 mmol/L (3.5-5.1); Sodium Level 137 mmol/L (136-145)
== END 2020-01-12 18:20 | disposition home or self-care (01) ==
PROVIDERS: Emergency Provider Emergency Medicine; PCP Family Medicine
DX: F44.9 Dissociative and conversion disorder, unspecified (principal); E11.22 Type 2 diabetes mellitus with diabetic chronic kidney disease; I25.10 Atherosclerotic heart disease of native coronary artery without angina pectoris; I13.0 Hypertensive heart and chronic kidney disease with heart failure and stage 1 through stage 4 chronic kidney disease, or unspecified chronic kidney disease; G47.33 Obstructive sleep apnea (adult) (pediatric); E66.9 Obesity, unspecified; E78.5 Hyperlipidemia, unspecified; I50.9 Heart failure, unspecified; N18.3 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, stage 3 (moderate); J44.9 Chronic obstructive pulmonary disease, unspecified; Z79.82 Long term (current) use of aspirin; Z85.820 Personal history of malignant melanoma of skin; Z87.891 Personal history of nicotine dependence; Z90.49 Acquired absence of other specified parts of digestive tract; Z90.79 Acquired absence of other genital organ(s); Z95.5 Presence of coronary angioplasty implant and graft
CPT/HCPCS: 70450; 70496; 70498; 80048; 84484; 85025; 85610; 85730; 93005; 99285; Q9967; A4216

== ENCOUNTER → 2020-03-01 09:38 | Outpatient (CLI) | payer MEDICARE, OTHER, SELFPAY ==
[2018-08-03 13:04] VITALS: BMI 19.8
[2020-01-12 17:35] VITALS: BMI 33.0
--- NOTE | 2020-03-01 12:29 | NEURO_ITS ---
NCS and/or EMG Patient Report Ordering Doctor: Victor M Luke DATE OF SERVICE: 03/01/20 Indication: Mr Rico reports diffuse muscle weakness as well as some sensory loss in the left lower extremity. He reports a history of prior stroke as well as significant cervical stenosis. Evaluate for peripheral cause his sympto matology. Findings: Nerve conduction studies were performed in the left upper and lower extremity. The left median motor study recording the abductor pollicis brevis showed a normal amplitude, normal distal latency and normal conduction velocity. The left ulnar motor study recording the abductor digiti minimi showed a normal amplitude, normal distal latency and normal conduction velocity. No conduction block or focal slowing was present across the elbow. The left median sensory response recording digit two showed a normal amplitude, latency and conduction velocity. The left ulnar sensory response recording digit five showed a normal amplitude, latency and conduction velocity. The left radial sensory response recording over the extensor snuff box showed a normal amplitude, latency and conduction velocity. The left median palmar mixed response showed a normal amplitude, latency and conduction velocity. The left ulnar palmar mixed response was absent. The left peroneal motor study recording the extensor digitorum brevis showed a normal amplitude, normal distal latency and normal conduction velocity. No conduction block or focal slowing was present across the fibular neck. The left tibial motor study recording the abductor hallucis brevis showed a normal amplitude, normal distal latency and normal conduction velocity. Left sural sensory response showed a normal amplitude and conduction velocity. Left superficial peroneal sensory response showed a normal amplitude and conduction velocity. Needle EMG of the left upper and lower extremity muscles was performed. The paraspinal musculature was not examined due to the patient's reported use of blood thinners. No denervation was present in any examined muscle. In most muscles, motor unit morphology and recruitment patterns were normal. The left triceps and flexor carpi radialis revealed motor units which were large amplitude, long duration, slightly polyphasic with mildly reduced recruitment. Multiple muscles in the left upper (deltoid, biceps, first dorsal interosseous) and lower (tibialis anterior, medial gastrocnemius, vastus medialis, vastus lateralis, extensor hallucis longus) extremities demonstrated limited activation. Impression: This is an abnormal, but limited study. There is electrophysiologic evidence of a mild, chronic, left C6/7 radiculopathy. There is no active denervation to suggest ongoing axonal loss. There is no electrophysiologic evidence of peripheral nerve injury or myopathy. The diffusely reduced activation is nonspecific, but can be seen in cases of pain, poor effort or lesions of the central nervous system. Clinical/radiographic correlation with the location of the patient's prior stroke and the severity of his cervical spinal stenosis is recommended. Finally, the isolated absence of the ulnar mixed response is likely technical in nature. It is not compatible with the patient's described symptoms and there are no other findings on nerve conduction studies or needle EMG to suggest an ulnar neuropathy. Ben Desai D.O.
== END ==
PROVIDERS: PCP Family Medicine; Referring Provider Family Medicine; Visit Provider Family Medicine
DX: R20.0 Anesthesia of skin (principal); R53.1 Weakness; M48.02 Spinal stenosis, cervical region; M48.061 Spinal stenosis, lumbar region without neurogenic claudication
CPT/HCPCS: 95886; 95912

== ENCOUNTER → 2020-08-20 06:11 | Outpatient (CLI) | payer MEDICARE, OTHER, SELFPAY ==
[2018-08-03 13:04] VITALS: BMI 19.8
[2020-08-12 15:28] VITALS: BMI 34.0
--- NOTE | 2020-08-20 19:59 | STRESSREP_ITS ---
Stress Test Report Date: 08-20-2020 Procedure: Pharmacologic stress nuclear imaging study Indications: Pain; CAD; PCI Consent: Per the patient Procedure: The patient underwent pharmacologic (Regadenoson 0.4mg ) evaluation with a peak heart rate of 118 beats per minute (81%predicted maximal heart rate) and a peak blood pressure of 130/82 mmHg. The baseline ECG demonstrated sinus bradycardia. The peak pharmacologic ECG demonstrated no obvious ECG changes. There was an isolated PVC during recovery. There was no complaint of chest discomfort during pharmacologic infusion or recovery. The examination was discontinued secondary to completion of protocol. Impression: 1. Pharmacologic (Regadenoson) evaluation 2. Peak pharmacologic ECG with no obvious ECG changes. 3. There was an isolated PVC during recovery. 4. Nuclear images pending Myocardial perfusion imaging study: Technique: The patient was injected with 14.8 millicuries of technetium 99m Cardiolite and subsequently rest SPECT Cardiolite nuclear imaging was obtained in the horizontal long, vertical long, and short axis views. The patient underwent pharmacologic (Regadenoson) evaluation with a peak heart rate of 118 beats per minute (81% percent predicted maximal heart rate) and a peak blood pressure of 130/82 mmHg. The patient was injected with 44.7 millicuries of technetium 99m Cardiolite and subsequently stress SPECT Cardiolite nuclear imaging was obtained in the horizontal long, vertical long, and short axis views. A gated Cardiolite study at peak stress was obtained. Interpretation: Rest and stress SPECT Cardiolite nuclear imaging status post realignment, normalization, and attenuation correction demonstrate appearance of diminished absence of myocardial perfusion/tracer uptake in portions of the distal inferoseptal/distal inferior/inferior apical segments with no significant change between rest and stress. There is diminished end systolic thickening and brightening in the aforementioned areas. The gated Cardiolite study demonstrates diminished myocardial thickening and inward wall motion. The reported LVEF is 57%. Impression: 1. Rest and stress SPECT Cardiolite nuclear imaging demonstrate myocardial perfusion changes appearing compatible with an area of previous myocardial injury/infarction in portions of the distal inferior septal, distal inferior, and inferior apical segments with no myocardial perfusion changes considered diagnostic for associated stress-induced myocardial ischemia 2. The gated Cardiolite study reports an LVEF of 57%. This note was generated with [employer] software. It may contain incorrect words, spelling, and punctuation that were not noted in checking the note before signing.
== END ==
PROVIDERS: PCP Family Medicine; Visit Provider Internal Medicine Cardiovascular Disease
DX: R07.9 Chest pain, unspecified (principal); I25.119 Atherosclerotic heart disease of native coronary artery with unspecified angina pectoris; E78.5 Hyperlipidemia, unspecified; I10 Essential (primary) hypertension; Z98.61 Coronary angioplasty status
CPT/HCPCS: 78452; 93017; A9500; A4216; J2785

== ENCOUNTER → 2020-09-27 14:15 | Outpatient (CLI) | payer MEDICARE, OTHER, SELFPAY ==
[2018-08-03 13:04] VITALS: BMI 19.8
[2020-08-12 15:28] VITALS: BMI 34.0
[2020-09-27 15:22] LABS: Absolute Lymphocyte Count 1.32 X10^3/uL (0.83-4.51); Absolute Neutrophil Count 4.6 X10^3/uL (2.0-7.7); Basophil# 0.03 X10^3/uL; Basophil% 0.4 % (0-1); Eosinophil# 0.11 X10^3/uL; Eosinophils% 1.6 % (0-5); Hemoglobin 14.6 g/dL (13.0-16.5); Lymphocyte # 1.32 X10^3/ul (0.83-4.51); Lymphocyte % 19.5 % (19-41); Mean Corp Hgb Conc 32.4 g/dL (32-36); Mean Corpuscular Hgb 28.9 pg (27.0-32.0); Mean Corpuscular Volume 88.9 fL (80-94); Mean Platelet Vol. 12.6 fl (6.2-12.0); Monocyte# 0.66 X10^3/uL; Monocyte% 9.7 % (0-10); NRBC Flagged by Analyzer 0 % (0-5); Neutrophil # 4.59 X10^3/uL (2.7-7.7); Neutrophil % 67.9 % (47-70); Platelet Count 135 K/mm3 (150-450); RBC Distribution Width CV 14.2 % (11.6-14.6); RBC Distribution Width SD 46.4 fl (35.1-43.9); Red Blood Count 5.06 M/mm3 (4.6-6.2); White Blood Count 6.8 K/mm3 (4.4-11.0)
[2020-09-27 15:55] LABS: BNP,B-Type NATRIURETIC PEPTIDE 74.1 pg/mL (0-100)
[2020-09-27 15:59] LABS: Vitamin B12 563 pg/mL (211-911); Vitamin D,25 Hydroxy 36.4 ng/mL
[2020-09-27 16:04] LABS: ALB/GLOB Ratio 0.9 RATIO (0.9-2.4); AST(SGOT) 22 U/L (15-37); Alanine Aminotransfer ALT/SGPT 32 U/L (16-61); Albumin, Serum 3.3 g/dL (3.2-5.0); Alkaline Phosphatase 185 U/L (45-117); Anion Gap 5 (5-15); BUN 20 mg/dL (7-18); BUN/Creat Ratio 13.8 RATIO (10-20); Calcium,Total 8.6 mg/dL (8.5-10.1); Chloride 108 mmol/L (98-107); Creatinine, Serum 1.45 mg/dL (0.70-1.30); EST Glomerular Filtration Rate 50 mL/min (>60); Est Glom Filt Rate - Afr Amer 61 mL/min (>60); Globulin 3.6 g/dL (2.2-4.2); Glucose 121 mg/dL (74-106); Protein, Total 6.9 g/dL (6.4-8.2); Sodium Level 142 mmol/L (136-145); Thyroid Stim Hormone (TSH) 3.09 uIU/mL (0.358-3.74)
== END ==
PROVIDERS: PCP Family Medicine; Referring Provider Family Medicine; Visit Provider Family Medicine
DX: R53.83 Other fatigue (principal); R07.9 Chest pain, unspecified; N18.30 Chronic kidney disease, stage 3 unspecified; R06.00 Dyspnea, unspecified
CPT/HCPCS: 36415; 80053; 82306; 82607; 83880; 84443; 84484; 85025

== ENCOUNTER 2020-11-17 21:19 | Observation (INO) | payer MEDICARE, OTHER, SELFPAY ==
[2018-08-03 13:04] VITALS: BMI 19.8
[2020-08-12 15:28] VITALS: BMI 34.0
[2020-11-17 21:19] VITALS: BP 176/84; BP 178/88; PULSE 70; PULSE 77; RESP 14; RESP 23; TEMP 36.9; O2SAT 94; O2SAT 98; BMI 32.5
--- NOTE | 2020-11-17 21:22 | EKG12_ITS ---
Test Reason : NEURO Blood Pressure : / mmHG Vent. Rate : 062 BPM Atrial Rate : 062 BPM P-R Int : 188 ms QRS Dur : 100 ms QT Int : 444 ms P-R-T Axes : 056 061 033 degrees QTc Int : 450 ms Normal sinus rhythm Normal ECG Confirmed by NAOMIE PALOMO, PARVEZ ([id number]), editor magazine VERONICA SCOTT ([id number]) on 11/18/2020 11:52:34 AM Referred By: PL Confirmed By:PARVEZ AKBAR MD
--- NOTE | 2020-11-17 21:23 | CT_ITS ---
We are attempting to reach an attending provider to discuss findings. An addendum with communication details will be sent when the communication is complete. HISTORY: fall, head injury TECHNIQUE: Multiple axial images were obtained of the brain without intravenous contrast. A radiation dose optimization technique was used for this scan. IV Contrast dosage and agent: None. COMPARISON: 01/12/20 FINDINGS: # of images incl. paperwork: [id number] PARANASAL SINUSES AND MASTOID AIR CELLS: Small right maxillary sinus mucous retention cyst. INTRACRANIAL HEMORRHAGE: None. BRAIN PARENCHYMA: No CT evidence of stroke. No intracranial masses. There is preservation of the [place]/white matter interface. Posterior fossa structures are unremarkable. There is hypoattenuation of the periventricular white matter. Chronic involutional changes are noted. CSF SPACES: Appropriate for age. There is no hydrocephalus. MASS EFFECT: None. CALVARIUM: No acute fracture. High right posterior parietal scalp laceration. CT/Brain/Head without Contrast IMPRESSION: Chronic involutional and white matter changes. No acute intracranial process. Individualized dose optimization techniques were used for this CT. at 2140 Reported and signed by: Junior Yang MD Electronically Signed: Junior Yang MD at 21:39 EDT Tel , Service support ,
--- NOTE | 2020-11-17 21:27 | CT_ITS ---
HISTORY: trauma EXAMINATION: CT Spine Cervical W/O Contrast Injection TECHNIQUE: Helically acquired images were obtained of the cervical spine. 2D reformatted images were reviewed. A radiation dose optimization technique was used for this scan. IV Contrast dosage and agent: None. COMPARISON: None FINDINGS: VERTEBRAE: No fracture or traumatic subluxation. Anterior cervical fusion hardware with discs Acer cages at C4-5 through C5-6. Normal alignment. Normal craniocervical junction and cervicothoracic junction. DISCS and SPINAL CANAL: Mild loss of disc space height at C6-7. No critical stenosis. NECK SOFT TISSUES: No prevertebral soft tissue swelling. There is no cervical adenopathy. LUNG APICES: Clear. CT/Spine Cervical without Contras IMPRESSION: Postsurgical and mild degenerative changes. No evidence of acute cervical spinal fracture. Individualized dose optimization techniques were used for this CT. at 2203 Reported and signed by: Junior Yang MD Electronically Signed: Junior Yang MD at 22:02 EDT Tel , Service support ,
[2020-11-17 21:38] VITALS: BP 178/88; PULSE 70; RESP 14; TEMP 36.9; O2SAT 96
[2020-11-17 21:54] LABS: Hematocrit 45.3 % (40-54); Hemoglobin 14.5 g/dL (13.0-16.5); Mean Corpuscular Hgb 28.7 pg (27.0-32.0); Mean Corpuscular Volume 89.7 fL (80-94); Mean Platelet Vol. 12.5 fl (6.2-12.0); Platelet Count 121 K/mm3 (150-450); RBC Distribution Width CV 14.3 % (11.6-14.6); RBC Distribution Width SD 47.3 fl (35.1-43.9); Red Blood Count 5.05 M/mm3 (4.6-6.2); White Blood Count 6.2 K/mm3 (4.4-11.0)
[2020-11-17 22:00] VITALS: BMI 32.4
--- NOTE | 2020-11-17 22:04 | ED.RN ---
Now patient and family are telling us that patient has had similar episodes of left sided weakness and chest pains and has had it worked up in the past. pt reports frequent episodes. [facility] neurologist and ED physician agree patient does not have symptoms of a stroke with the recurrent sx, no TPA communicated.
[2020-11-17 22:08] LABS: International Normalized Ratio 1.1; Prothrombin Time (Protime)PT. 13.3 SECONDS (11.7-14.9)
[2020-11-17 22:09] LABS: Partial Thromboplast Time 31.9 Seconds (24.1-36.2)
[2020-11-17 22:10] LABS: Anion Gap 7 (5-15); BUN 20 mg/dL (7-18); BUN/Creat Ratio 14.5 RATIO (10-20); Calcium,Total 8.9 mg/dL (8.5-10.1); Chloride 108 mmol/L (98-107); Creatinine, Serum 1.38 mg/dL (0.70-1.30); EST Glomerular Filtration Rate 53 mL/min (>60); Est Glom Filt Rate - Afr Amer 65 mL/min (>60); Estimated Creatinine Clearance 46.25 ml/min; Glucose 146 mg/dL (74-106); Potassium 3.6 mmol/L (3.5-5.1); Sodium Level 141 mmol/L (136-145)
[2020-11-17 22:19] VITALS: BP 156/78; PULSE 58; RESP 19; O2SAT 96
--- NOTE | 2020-11-17 22:23 | RAD_ITS ---
HISTORY: fall, trauma EXAMINATION/TECHNIQUE: XR Chest 1 View: Portable semiupright AP chest x-ray COMPARISON: 12/20/19 FINDINGS: LINES/DEVICES: None. LUNGS: No consolidation, edema or effusion. Stable pleural thickening along the right lateral hemithorax. No pneumothorax. MEDIASTINUM AND CARDIOVASCULAR STRUCTURES: Cardiac silhouette not enlarged. Central airways and mediastinal contour are unremarkable. BONES AND SOFT TISSUES: No acute bony abnormalities. Stable anterior cervical fusion hardware. RAD/Chest 1 View (Portable) IMPRESSION: No radiographic evidence of acute cardiopulmonary disease. at 2321 Reported and signed by: Junior Yang MD Electronically Signed: Junior Yang MD at 23:19 EDT Tel , Service support ,
[2020-11-17 22:33] LABS: Lactic Acid 2.4 mmol/L (0.4-1.9)
[2020-11-17 22:41] LABS: Troponin-I HS 6.8 pg/mL (3.0-78.5)
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
--- NOTE | 2020-11-17 22:59 | CT_ITS ---
We are attempting to reach an attending provider to discuss findings. An addendum with communication details will be sent when the communication is complete. HISTORY: Neuro deficit, acute, stroke suspected TECHNIQUE: Routine carotid CT angiogram protocol was performed without and with IV contrast. In addition, images were obtained of the [place] of [place]. Nascet criteria using the distal ICAs for comparison were used for evaluation of stenoses. 3D reconstructions were reviewed. A radiation dose optimization technique was used for this scan. IV Contrast dosage and agent: 100mL [id number] COMPARISON: 01/12/20 FINDINGS: --NECK: AORTIC ARCH AND BRANCHES: Unremarkable. RIGHT CCA: No occlusion, significant stenosis or dissection. RIGHT ICA: No occlusion, significant stenosis or dissection. LEFT CCA: No occlusion, significant stenosis or dissection. LEFT ICA: No occlusion, significant stenosis or dissection. RIGHT VERTEBRAL ARTERY: No occlusion, significant stenosis or dissection. LEFT VERTEBRAL ARTERY: No occlusion, significant stenosis or dissection. NECK SOFT TISSUES: Unremarkable. LUNG APICES: Clear. BONES: Postsurgical changes. --HEAD: --Anterior circulation: ICAs: No significant stenosis at the intracranial/visualized segments. ACAs: No significant stenosis at the visualized segments. Left A1 segment absent. ACOM: Bilateral A2 segments arise from the right A1 segment. MCAs: No significant stenosis at the visualized segments. --Posterior circulation: registration manager: No significant stenosis at the visualized segments. 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 BASILAR ARTERY: No significant stenosis. VERTEBRAL ARTERIES: No significant stenosis at the intradural/visualized segments. No evidence of intracranial aneurysm or vascular malformation. CT/STROKE CTA Head AND Neck W/Con IMPRESSION: No significant major vessel basal occlusive disease in the head or neck. No significant interval change from the prior study. Individualized dose optimization techniques were used for this CT. at 0002 Reported and signed by: Junior Yang MD Electronically Signed: Junior Yang MD at 0:00 EDT Tel , Service support ,
[2020-11-17 23:00] VITALS: BP 151/77; PULSE 62; RESP 18; O2SAT 99
[2020-11-18] VITALS (13 sets, daily range): BP systolic 133–159; BP diastolic 55–82; PULSE 45–64; RESP 15–25; TEMP 36.4–36.9; O2SAT 94–98; BMI 34.2
[2020-11-18 00:07] LABS: Reflex Lactate? Y
[2020-11-18] MEDS: Lidocaine/Epi/Tetracaine 50 ML 1 APPLIC TOPICAL (00:15)
--- NOTE | 2020-11-18 01:06 | HP.PCM.HOS_ITS ---
[facility] - General General Date of Admission: 11/18/20 HPI Narrative GERRY GARCIA, is a 75 M with a PMH as outlined who presents with a complaint of chest pain and syncope. He had chest pain at home, and family says this chest pain is not uncommon for him; chest pain didnt respond to SL nitroglycerin. He was going up some stairs, and had trouble walking, so he fell and hit his head. He has had trouble with walking in the past, and has chronic recurrent left leg weakness and these symptoms have been reucrrent for ~ [address] of the brain was negative and CTA of the head and neck were also unremarkable. he hasnt had any workup for the past year for these symptoms. He had sutures done of the scalp in the ED. on admission, telestroke was consulted and neurologist decided against tPA o/a of recurrence of his symptoms. Neurology recommended admission for further workup. Vitals were BP of 159/82, NH of 58, RR of 21. CBC was unremarkable and BMP showed Cr of 1.38 but was otherwise unremarkable. Lactic acid ws 2.4. EKG showed no acute ST changes. he is being admitted to be managed for TIA to work up stroke. [facility] Medical History Atherosclerotic heart disease [place] coronary artery w/angina pectoris 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, stage 3 COPD (chronic obstructive pulmonary disease) Essential hypertension Hyperlipidemia Obesity Obstructive sleep apnea TIA (transient ischemic attack) Type 2 diabetes mellitus without complications Home Medications aspirin 81 mg PO DAILY@0800 01/21/17 [History Last Taken 12/19/19] fluoxetine 40 mg capsule 40 mg PO DAILY 90 Days #90 cap 09/21/18 [History Last Taken 12/19/19] mirtazapine 15 mg tablet 15 mg PO QHS tab 09/21/18 [History Last Taken 12/19/19] cyanocobalamin (vitamin B-12) 1,000 mcg PO DAILY #0 06/01/19 [History Last Taken 12/19/19] ergocalciferol (vitamin D2) 50 mcg PO DAILY #0 06/01/19 [History Last Taken 12/19/19] spironolactone 25 mg tablet 25 mg PO DAILY #90 tab 07/31/19 [Rx Last Taken 12/19/19] isosorbide mononitrate 60 mg tablet,extended release 24 hr 60 mg PO BID #180 tab 12/04/19 [Rx Last Taken 12/19/19] nitroglycerin 0.4 mg sublingual tablet 0.4 mg SUBLINGUAL Q5-15M PRN #25 tab 12/04/19 [Rx Last Taken 1 Week Ago ~12/13/19] furosemide 40 mg tablet 80 mg PO DAILY #180 tab 12/05/19 [Rx Last Taken 12/19/19] magnesium oxide 400 mg (241.3 mg magnesium) tablet 400 mg PO DAILY tab 12/05/19 [History Last Taken 12/19/19] atorvastatin 40 mg PO QHS 12/20/19 [History Last Taken 12/19/19] pantoprazole 40 mg PO DAILY 12/20/19 [History Last Taken 12/19/19] acetaminophen 650 mg PO Q6H PRN PRN tab 01/03/20 [Rx Last Taken Unknown] amlodipine 10 mg tablet 5 mg PO DAILY tab 01/09/20 [History Last Taken Unknown] metoprolol tartrate 25 mg tablet 25 mg PO BID #180 tab 01/09/20 [Rx Last Taken Unknown] clopidogrel 75 mg tablet See Rx Instructions .ROUTE .COMPLEX #90 tablet 07/29/20 [Rx Last Taken Unknown] glimepiride 2 mg tablet 2 mg PO BID tablet 08/12/20 [History Last Taken Unknown] potassium chloride 20 mEq tablet,extended release(part/cryst) 40 meq PO BID #360 tab 09/02/20 [Rx Last Taken Unknown] Allergy/AdvReac Type Severity Reaction Status Date / Time No Known Allergies Allergy Verified 11/17/20 21:50 Surgical History History of coronary artery stent placement (08/13/17) History of herniorrhaphy History of percutaneous transluminal coronary angioplasty (08/18/18) History of prostatectomy History of tonsillectomy Hx of cholecystectomy Social History (Updated 08/12/20 @ 16:[address] John Palacios MD) Smoking Status: Former smoker quit date: 05/03/98 pack-years: 50 how long ago did patient quit smokin years ago alcohol intake: never substance use type: does not use caffeine: Yes Type: coffee and tea Number of servings: 6 ROS Constitutional Constitutional: Reports fatigue, malaise and weakness; Denies anorexia, chills, fever(s) or night sweats Eyes Eyes: Denies blurry vision, double vision or loss of vision ENT HEENT: Denies abnormal hearing, ear pain, headache(s), hearing loss, nasal congestion or sore throat Cardiovascular Cardiovascular: Denies chest pain, dyspnea on exertion, edema, lightheadedness, orthopnea, palpitations, paroxysmal nocturnal dyspnea or rapid heart rate Respiratory/Chest Respiratory/Chest: Denies cough, dyspnea, productive cough or shortness of breath at rest Gastrointestinal Gastrointestinal: Denies abdominal pain, coffee ground emesis, diarrhea, hematemesis, nausea or vomiting Genitourinary Genitourinary: Denies burning urination, dysuria, nocturia or urinary frequency Musculoskeletal Musculoskeletal: Denies arthralgias or back pain Neurologic Neurologic: Denies confusion, dizziness, focal weakness, headache(s), numbness, seizures or syncope Psychiatric Psychiatric: Denies anxiety Endocrine Endocrinology: Denies change in body appearance Hematologic/Lymphatic Hematologic/Lymphatic: Denies anemia Vital Signs Vital Signs Vital Signs: 11/17/20 21:19 11/17/20 21:38 11/17/20 22:19 Temperature 98.4 F 98.4 F Temperature Source Temporal Oral Pulse Rate 77 70 58 L Respiratory Rate 23 H 14 19 H Blood Pressure 176/84 H 178/88 H 156/78 H Blood Pressure Mean 114 118 104 Pulse Ox 94 96 96 Oxygen Delivery Method Room Air Room Air Room Air 11/17/20 23:00 11/18/20 00:00 Temperature Temperature Source Pulse Rate 62 58 L Respiratory Rate 18 21 H Blood Pressure 151/77 H 159/82 H Blood Pressure Mean 101 107 Pulse Ox 99 96 Oxygen Delivery Method Room Air Room Air Weight Weight: 219 lb 12.814 oz Body Mass Index (BMI) 32.4 Physical Exam Const alert, oriented x3 and no apparent distress General Appearance: cooperative HEENT normocephalic HEENT Narrative: has a laceration on th scalp that couldnt be sutured together Eyes PERRL, EOMs intact bilaterally and conjunctivae normal Neck no lymphadenopathy, supple, no JVD and no carotid bruits Resp normal respiratory effort, no retractions, no use of accessory muscles and clear to auscultation bilaterally Cardio regular rate, regular rhythm, S1 normal heart sound, S2 normal heart sound and no murmurs GI normal to inspection, nondistended, normoactive bowel sounds, soft to palpation, non-tender and non-distended Extremity normal to inspection, full ROM and no clubbing, cyanosis or edema Peripheral Pulses: Yes pulses 2+ throughout Skin no rashes or lesions noted Neuro oriented x3, CN's II-XII intact bilaterally and moves all extremities Sensorium / Orientation: awake and alert Psych affect normal Results Lab / Micro Data Result Diagrams: 11/18/20 04:46 11/18/20 04:46 Labs: Laboratory Results - last 24 hr 11/17/20 21:45: WBC 6.2, RBC 5.05, Hgb 14.5, Hct 45.3, MCV 89.7, MCH 28.7, MCHC 32.0, RDW Std Deviation 47.3 H, RDW Coeff of Adrian 14.3, Plt Count 121 L, MPV 12.5 H 11/17/20 21:45: PT 13.3, INR 1.1, APTT 31.9 11/17/20 21:45: Sodium 141, Potassium 3.6, Chloride 108 H, Carbon Dioxide 26.0, Anion Gap 7, BUN 20 H, Creatinine 1.38 H, Estim Creat Clear Calc 46.25, Est GFR (MDRD) Af Amer 65, Est GFR (MDRD) Non-Af 53 L, BUN/Creatinine Ratio 14.5, Glucose 146 H, Calcium 8.9 11/17/20 21:45: Troponin I High Sens 6.8 11/17/20 21:48: Lactic Acid 2.4 H* Radiology Impression Brain CT 11/17/20 21:23 IMPRESSION: Chronic involutional and white matter changes. No acute intracranial process. Individualized dose optimization techniques were used for this CT. at 2140 Reported and signed by: Junior Yang MD Electronically Signed: Junior Yang MD at 21:39 EDT Tel , Service support , Cervical Spine CT 11/17/20 21:27 IMPRESSION: Postsurgical and mild degenerative changes. No evidence of acute cervical spinal fracture. Individualized dose optimization techniques were used for this CT. at 2203 Reported and signed by: Junior Yang MD Electronically Signed: Junior Yang MD at 22:02 EDT Tel , Service support , Chest X-Ray 11/17/20 22:23 IMPRESSION: No radiographic evidence of acute cardiopulmonary disease. at 2321 Reported and signed by: Junior Yang MD Electronically Signed: Junior Yang MD at 23:19 EDT Tel , Service support , Head/Neck CTA 11/17/20 22:59 IMPRESSION: No significant major vessel basal occlusive disease in the head or neck. No significant interval change from the prior study. Individualized dose optimization techniques were used for this CT. at 0002 Reported and signed by: Junior Yang MD Electronically Signed: Junior Yang MD at 0:00 EDT Tel , Service support , Assessment & Plan Assessment/Plan (1) Syncope: (2) Chest pain: (3) Acute left-sided weakness: (4) Acidosis, lactic: PLAN: #SYncope with left sided weakness * admit to PCU * symptoms of left sided weakness seem to be recurrent and have occured in the past * CT of the brain was negative, and CTA of the head and neck showed no evidence of hemodynamically significant stenosis * NIHSS per stroke protocol * already on PO aspirin, statin and plavix; will continue * MRI of the brain tomorrow * 2D echo * PT/OT consult * fall precautions. * consult neurology once MRI is obtained * #Lactic acidosis: likely due to hypotension. hydrate with IVF gently and trend #Hypertension * BP is elevated at 156/78 * will hold BP meds to allow for permissive hypertension #Chest pain * this is also recurrent * initial troponin was negative. will cycle * SL nitroglycerin prn. PO aspirin 81mg daily * #CKD stage 3: stable #Type 2 diabetes mellitus: on glimepiride. ISS. Accuchecks ACHS #HFpEF: on spironolactone and lasix DVT prophylaxis: SCDs. No anticoagulation o/a of scalp laceration and syncope with patient hitting his head Code status: full code * Patient counseled extensively about different types of CODE STATUS including full code, DNR CCA and DNR CCA. Patient elects to be full code. Total [id number]-[id number] time 16 minutes. Charges/Coding Visit Charges OBSV E&M: 70659 Initial observation care L3 Procedures Hospitalists Procedures: 15030 Advncd Care Plan 30 Min
[2020-11-18] MEDS: Lidocaine 1%/Epi 1:100 (30ml) 30 ML VIAL INFILT (01:17)
[2020-11-18 02:09] LABS: Lactic Acid 1.6 mmol/L (0.4-1.9)
--- NOTE | 2020-11-18 02:35 | NURSING ---
Pt stated that he has received his COVID vaccines.
--- NOTE | 2020-11-18 04:13 | ECHOCS_ITS ---
Reason For Study: TIA/CVA Procedure This was a 2D Doppler, Color Flow transthoracic echocardiogram. The study was technically difficult. Exam performed portable in patient room. Left Ventricle Normal LV size. Left ventricular systolic function is normal. The estimated ejection fraction is 60 %. Stage 2 diastolic dysfunction. No regional wall motion abnormalities noted. Right Ventricle Normal RV size. Normal systolic function. Atria Normal left atrium. Normal right atrium. Mitral Valve Normal mitral valve. Tricuspid Valve Normal tricuspid valve. Mild tricuspid valve insufficiency. Pulmonary artery systolic pressure is 26 mmHg. Aortic Valve Trisinus/trileaflet aortic valve. Mild focal aortic valve calcification. Pulmonic Valve Normal pulmonic valve. Great Vessels Normal aortic root. The pulmonary artery is normal size. Normal inferior vena cava. Pericardium/Pleural No pericardial effusion. Medication Negative bubble on previous echo. Diluted definity 3ml given slow IV push to enhance endocardial definition. MMode/2D Measurements & Calculations LVIDd: 5.1 cm IVSd: 0.77 cm Ao root diam: 2.9 cm LVIDs: 2.9 cm LVPWd: 1.0 cm RVDd: 3.8 cm FS: 42.7 % LAV(MOD-bp): 58.6 ml LVAd ap4: 36.6 cm2 LVAd ap2: 34.9 cm2 LAV(MOD-bp) Indexed: 26.7 ml/m2 LVLd ap4: 7.8 cm LVLd ap2: 7.8 cm LAV(MOD-sp2): 57.7 ml EDV(MOD-sp4): 139.6 ml EDV(MOD-sp2): 132.2 ml LAV(MOD-sp4): 52.2 ml EDV(sp4-el): 144.8 ml EDV(sp2-el): 133.7 ml LVAs ap4: 19.1 cm2 LVAs ap2: 23.0 cm2 LVLs ap4: 6.3 cm LVLs ap2: 6.5 cm ESV(MOD-sp4): 47.4 ml ESV(MOD-sp2): 67.4 ml ESV(sp4-el): 49.0 ml ESV(sp2-el): 69.8 ml EF(MOD-sp4): 66.0 % EF(MOD-sp2): 49.0 % EF(sp4-el): 66.1 % SV(MOD-sp4): 92.2 ml SV(MOD-sp2): 64.8 ml SV(sp4-el): 95.8 ml LA A4 area: 18.6 cm2 LA dimension(2D): 3.7 cm RA A4 area: 14.0 cm2 Doppler Measurements & Calculations MV E max nicho: 89.1 cm/sec Lat Peak E' Nicho: 10.8 cm/sec Med Peak E' Nicho: 6.5 cm/sec MV A max nicho: 58.9 cm/sec E/E' lat: 8.2 E/E' med: 13.7 MV E/A: 1.5 Ao V2 max: 161.1 cm/sec LV V1 max: 116.6 cm/sec PA V2 max: 116.5 cm/sec Ao max P.4 mmHg LV V1 max P.4 mmHg TR max nicho: 240.3 cm/sec TR max P.1 mmHg ECHO/Echo Complete W/ Contrast Interpretation Summary Normal LV size. Left ventricular systolic function is normal. The estimated ejection fraction is 60 %. Mild tricuspid valve insufficiency. Stage 2 diastolic dysfunction. Contrast injection was performed. Ordering Physician: Rossana Flores Referring Physician: Victor M Luke Performed By: Lexie Pérez RDCS, RVT
--- NOTE | 2020-11-18 04:15 | MRI_ITS ---
EXAM: MR HEAD WITHOUT INTRAVENOUS CONTRAST : 1945 CLINICAL INDICATION: TIA TECHNIQUE: Multiplanar and multisequence MR images of the brain were obtained without intravenous contrast. This report was created using [employer] report generation technology. COMPARISON: CT brain November 17, 2020, MRI brain December 19, 2020 FINDINGS: BRAIN AND EXTRA-AXIAL SPACES: There is no abnormal diffusion weighted signal intensity to suggest an acute ischemic event. Multiple foci of increased T2 signal intensity within the cerebral white consistent with chronic microvascular change. No intra- or extra-axial hemorrhage. No intracranial mass or mass effect. Posterior fossa structures are unremarkable. Ventricles are appropriate for age. No hydrocephalus. Basal cisterns are patent. SELLA: Unremarkable. Normal sella turcica, pituitary gland, infundibular stalk, optic chiasm and hypothalamus. AUDITORY SYSTEM: Unremarkable. The internal auditory canals are patent. BONES/JOINTS: Unremarkable. No discrete lytic or blastic abnormalities. SINUSES: 12 mm mucous retention cyst noted within the right maxillary sinus. MASTOID AIR CELLS: Unremarkable as visualized. Clear. ORBITS: Unremarkable as visualized. Both globes, extraocular muscles, optic nerves and retrobulbar fat appear unremarkable. VASCULATURE: Normal vascular flow voids are noted. MRI/Brain without Contrast IMPRESSION: 1. No acute intracranial abnormality. 2. No interval change. at 1043 Reported and signed by: Sundar Guevara MD Electronically Signed: Sundar Guevara MD at 10:42 EDT Tel , Service support ,
[2020-11-18 05:01] LABS: Absolute Lymphocyte Count 1.14 X10^3/uL (0.83-4.51); Basophil# 0.03 X10^3/uL; Basophil% 0.5 % (0-1); Eosinophil# 0.04 X10^3/uL; Eosinophils% 0.7 % (0-5); Hematocrit 45.5 % (40-54); Hemoglobin 13.6 g/dL (13.0-16.5); Lymphocyte # 1.14 X10^3/ul (0.83-4.51); Lymphocyte % 19.2 % (19-41); Mean Corp Hgb Conc 29.9 g/dL (32-36); Mean Corpuscular Hgb 29.1 pg (27.0-32.0); Mean Corpuscular Volume 97.2 fL (80-94); Mean Platelet Vol. 12.8 fl (6.2-12.0); Monocyte# 0.69 X10^3/uL; Monocyte% 11.6 % (0-10); NRBC Flagged by Analyzer 0 % (0-5); Neutrophil # 4.03 X10^3/uL (2.7-7.7); Neutrophil % 67.7 % (47-70); Platelet Count 106 K/mm3 (150-450); RBC Distribution Width CV 14.4 % (11.6-14.6); RBC Distribution Width SD 51.5 fl (35.1-43.9); Red Blood Count 4.68 M/mm3 (4.6-6.2)
[2020-11-18] MEDS: Acetaminophen 325 MG Tablet 650 MG PO (05:08)
[2020-11-18 05:20] LABS: Anion Gap 5 (5-15); BUN 18 mg/dL (7-18); BUN/Creat Ratio 15.4 RATIO (10-20); Calcium,Total 8.3 mg/dL (8.5-10.1); Chloride 111 mmol/L (98-107); Cholesterol 116 mg/dL (200); Creatinine, Serum 1.17 mg/dL (0.70-1.30); EST Glomerular Filtration Rate 65 mL/min (>60); Est Glom Filt Rate - Afr Amer 78 mL/min (>60); Estimated Creatinine Clearance 54.55 ml/min; Glucose 91 mg/dL (74-106); High Density Lipoprotein 38 mg/dL; Potassium 3.8 mmol/L (3.5-5.1); Sodium Level 140 mmol/L (136-145); Triglycerides 111 mg/dL; Very Low Density Lipoprotein 22 mg/dL (5-40)
--- NOTE | 2020-11-18 05:32 | EKG12_ITS ---
Test Reason : CP ADMISSION Blood Pressure : / mmHG Vent. Rate : 043 BPM Atrial Rate : 043 BPM P-R Int : 202 ms QRS Dur : 100 ms QT Int : 486 ms P-R-T Axes : 073 080 044 degrees QTc Int : 410 ms Marked sinus bradycardia Abnormal ECG When compared with ECG of 12-JAN-2020 17:20, Vent. rate has decreased BY 30 BPM Confirmed by NAOMIE PALOMO, PARVEZ ([id number]), supervising editor trailer VERONICA SCOTT ([id number]) on 11/18/2020 11:53:41 AM Referred By: LEORA Confirmed By:PARVEZ AKBAR MD
[2020-11-18 07:22] LABS: Troponin-I HS 13.8 pg/mL (3.0-78.5)
[2020-11-18] MEDS: Glimepiride 2 MG Tablet PO ×2 (08:37→17:22)
[2020-11-18] MEDS: Aspirin E.C. 81 MG Tablet PO (08:37)
[2020-11-18] MEDS: LORazepam 0.5 MG Tablet PO (08:38)
[2020-11-18] MEDS: Enoxaparin 40 MG/0.4 ML Syringe SC (10:17)
[2020-11-18] MEDS: Pantoprazole Sodium 40 MG Tablet PO (10:17)
[2020-11-18] MEDS: Potassium Chloride Oral Tablet 20 MEQ 40 MEQ PO ×2 (10:17→17:21)
[2020-11-18] MEDS: Cholecalciferol (VIT D3) 25 MCG TABLET (1,000 UNITS) 50 MCG PO (10:17)
[2020-11-18] MEDS: Magnesium Chloride 64 MG Delay Rel.Tablet 128 MG PO (10:17)
[2020-11-18] MEDS: Furosemide 80 MG Tablet PO (10:18)
[2020-11-18] MEDS: Clopidogrel Bisulfate 75 MG Tablet PO (10:18)
[2020-11-18] MEDS: FLUoxetine 20 MG Capsule 40 MG PO (10:18)
[2020-11-18] MEDS: Spironolactone 25 MG Tablet PO (10:19)
[2020-11-18] MEDS: Cyanocobalamin 500 MCG Tablet 1000 MCG PO (10:19)
[2020-11-18] MEDS: Isosorbide Mononitrate 60 MG Tablet PO (10:33)
[2020-11-18] MEDS: amLODIPine 5 MG Tablet PO (10:33)
[2020-11-18 10:46] LABS: Troponin-I HS 11.4 pg/mL (3.0-78.5)
[2020-11-18] MEDS: oxyCODONE 5 MG Tablet PO (12:14)
--- NOTE | 2020-11-18 14:58 | CASEMGMT ---
ALEX SANTOS in with hospitalist to patient's room to discuss planning, at bedside. Patient states that he would feel more comfortable discharging to Rehab Unit for additional therapy. ALEX SANTOS explained the we would have to check bed availability. ALEX SANTOS left list of [facility] agencies as well. Per , patient has walker at home. ALEX SANTOS updated SW regarding referral to Rehab Unit.
--- NOTE | 2020-11-18 15:02 | CASEMGMT ---
Per RN CM patient is interested in going to [facility] Inpatient Rehab Unit. SALOMON called Kimberly on referral line and she will check with Dr Lomas and get back to SALOMON. Jody Campbell MSW JUAN
--- NOTE | 2020-11-18 15:47 | CASEMGMT ---
SW completed a PHQ 9 as patient may have had a TIA. He scored a 4 which indicates minimal depression. Patient did not want a list of counseling resources as he feels his issues are from the stress of building their new home. SW also let patient know that SW is waiting to hear back if they can take him in the Inpatient Rehab Unit. Patient then said he wants to go home now. Discussed home health and outpatient therapy and he did not want either. SW let them know that if they change their mind when the get home his PCP can order home health or outpatient therapy. SW let RN and physician know this information. Plan: d/c home Jody MARTINEZ
--- NOTE | 2020-11-18 16:25 | PCM.DC ---
Discharge Instructions Diet Discharge Diet: Low fat / Low cholesterol and 2000 Calorie Control Diet Activity Discharge Activity: Return to Normal Activity Dressing / Incision Call your doctor if you observe: Fever of 101 or Higher, Shortness of breath, Dizziness, Swelling in the ankles, Chest pain and Increased palpitations (irregular heartbeat) Follow Up Care Test Results: Test results from this visit will be discussed in further detail at your follow-up appointment, if applicable. Discharge Plan Admission Admit Date/Time: 11/18/20 03:54 Attending Provider: Eladio Melendez Primary Care Provider: Victor M Luke Instructions Patient Instructions: ED Chest Pain, Noncardiac Discharge Orders/Prescriptions Prescriptions: Continued fluoxetine 40 mg capsule 40 mg PO DAILY 90 Days Qty: 90 RF: 0 magnesium oxide 400 mg (241.3 mg magnesium) tablet 400 mg PO DAILY RF: 0 amlodipine 10 mg tablet 5 mg PO DAILY RF: 0 metoprolol tartrate 25 mg tablet 25 mg PO BID Qty: 180 RF: 3 aspirin 81 MG tablet 81 mg PO DAILY@0800 RF: 0 cyanocobalamin (vitamin B-12) 1,000 MCG capsule 1,000 mcg PO DAILY Qty: 0 RF: 0 ergocalciferol (vitamin D2) 50 MCG capsule 50 mcg PO DAILY Qty: 0 RF: 0 pantoprazole 40 MG tablet 40 mg PO DAILY RF: 0 atorvastatin 40 MG tablet 40 mg PO QHS RF: 0 glimepiride 2 mg tablet 2 mg PO BID RF: 0 acetaminophen 325 MG tablet 650 mg PO Q6H PRN PRN (Reason: Pain 1-02/09) RF: 0 mirtazapine [Remeron] 15 mg tablet 15 mg PO QHS RF: 0 spironolactone 25 mg tablet 25 mg PO DAILY Qty: 90 RF: 3 isosorbide mononitrate 60 mg tablet extended release 24 hr 60 mg PO BID Qty: 180 RF: 3 nitroglycerin 0.4 mg tablet, sublingual 0.4 mg SUBLINGUAL Q5-15M PRN (Reason: CHEST PAIN) Qty: 25 RF: 1 furosemide 40 mg tablet 80 mg PO DAILY Qty: 180 RF: 3 clopidogrel 75 mg tablet See Rx Instructions .ROUTE .COMPLEX Qty: 90 RF: 3 potassium chloride 20 mEq tablet,ER particles/crystals 40 meq PO BID Qty: 360 RF: 3 Other Ambulatory Orders: Cardiac Holter Monitor, Set-Up (Routine) Location: None Selected Ordered By: Dr. Eladio Melendez Referrals / Follow Up: Victor M Luke DO [Primary Care Provider] - In 1 Week Disposition Disposition (needs filled in before D/C Order can be placed): Home, Self Care
--- NOTE | 2020-11-18 16:29 | DS.PCM_ITS ---
Providers Date of Admission: 11/18/20 Primary Care Physician: Dr. 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 Routine Comment: Reason For Visit: TIA, CHEST PAIN Diagnosis Discharge Diagnosis (1) Syncope: Status: Acute Code(s): R55 - Syncope and collapse (2) Chest pain: Status: Acute Code(s): R07.9 - Chest pain, unspecified (3) Acute left-sided weakness: Status: Acute Code(s): R53.1 - Weakness (4) Acidosis, lactic: Status: Acute Code(s): E87.2 - Acidosis Medications at Discharge Home Medications aspirin 81 mg PO DAILY@0800 01/21/17 fluoxetine 40 mg capsule 40 mg PO DAILY 90 Days #90 cap 09/21/18 mirtazapine 15 mg tablet 15 mg PO QHS tab 09/21/18 cyanocobalamin (vitamin B-12) 1,000 mcg PO DAILY #0 06/01/19 ergocalciferol (vitamin D2) 50 mcg PO DAILY #0 06/01/19 spironolactone 25 mg tablet 25 mg PO DAILY #90 tab 07/31/19 isosorbide mononitrate 60 mg tablet,extended release 24 hr 60 mg PO BID #180 tab 12/04/19 nitroglycerin 0.4 mg sublingual tablet 0.4 mg SUBLINGUAL Q5-15M PRN #25 tab 12/04/19 furosemide 40 mg tablet 80 mg PO DAILY #180 tab 12/05/19 magnesium oxide 400 mg (241.3 mg magnesium) tablet 400 mg PO DAILY tab 12/05/19 atorvastatin 40 mg PO QHS 12/20/19 pantoprazole 40 mg PO DAILY 12/20/19 acetaminophen 650 mg PO Q6H PRN PRN tab 01/03/20 amlodipine 10 mg tablet 5 mg PO DAILY tab 01/09/20 metoprolol tartrate 25 mg tablet 25 mg PO BID #180 tab 01/09/20 clopidogrel 75 mg tablet See Rx Instructions .ROUTE .COMPLEX #90 tablet 07/29/20 glimepiride 2 mg tablet 2 mg PO BID tablet 08/12/20 potassium chloride 20 mEq tablet,extended release(part/cryst) 40 meq PO BID #360 tab 09/02/20 Hospital Course Operations None Procedures 2-D Echocardiogram Summary of Care Provided Minutes Spent on Discharge: 42 Hospital Course: Per HPI: GERRY GARCIA, is a 75 M with a PMH as outlined who presents with a complaint of chest pain and syncope. He had chest pain at home, and family says this chest pain is not uncommon for him; chest pain didnt respond to SL nitroglycerin. He was going up some stairs, and had trouble walking, so he fell and hit his head. He has had trouble with walking in the past, and has chronic recurrent left leg weakness and these symptoms have been reucrrent for ~ [address] of the brain was negative and CTA of the head and neck were also unremarkable. he hasnt had any workup for the past year for these symptoms. He had sutures done of the scalp in the ED. on admission, telestroke was consulted and neurologist decided against tPA o/a of recurrence of his symptoms. Neurology recommended admission for further workup. Vitals were BP of 159/82, MA of 58, RR of 21. CBC was unremarkable and BMP showed Cr of 1.38 but was otherwise unremarkable. Lactic acid ws 2.4. EKG showed no acute ST changes. he is being admitted to be managed for TIA to work up stroke. Hospital Course: 1. Chest pain/syncope/HTN/Chronic diastolic CHF/HLD-75 yo M with a h/o cardiac disease presented with weakness, syncope and chest pain. The EKG was non- ischemic with multiple normal troponins in the setting of a normal stress test in august of this year. No further chest pain or syncopal episodes. He can follow-up with his PCP as an outpatient for further evaluation. No changes were made to his medications. 2. Left-sided weakness with possible CVA-he has had this issue in the past, he states that his left-sided weakness is not necessarily chronic but he has had episodes in the past and is being worked up for it as an outpatient with nerve conduction studies. He states that the demonstrated an issue that he is having outpatient follow-up for. MRI was negative echo was unremarkable other than stage II diastolic dysfunction. He did have something similar a couple months ago and had a stroke work-up at that time but it was felt to be conversion disorder given his mental state and the exam findings at that time. In discussing this case with the physical therapist, he had significant difficulty walking to the bathroom when they first got him up and they are talking about his weakness however on the way back when it appeared that he forgot that he was supposed to have weakness on his left side he was ambulating fairly independently and was moving that left side well. For completeness sake, will order a Holter monitor for 24-hour evaluation. My review of telemetry did not demonstrate A. fib. We will continue with his home medications. Because of his fall secondary to his left-sided weakness, he does have a scalp wound that is no longer bleeding, he was instructed on proper techniques for management and bandaging. I do recommend that he follow-up with his outpatient physician for t his as well in case infection sets in. He was offered to go to rehab for his lower extremity, however he and his both declined and they wanted to go home today without any further testing or evaluation, they wanted no further assistance at home either, they refused home PT/OT as well as home health. I discussed with him the plan for discharge today and they expressed understanding of the risk and benefits of going home and would like to go home today. 3. Type 2 diabetes, anxiety, depression, GERD are all chronic medical conditions which complicate his care. His home medications were continued where appropriate Physical Exam Const alert, oriented x3 and no apparent distress General Appearance: cooperative HEENT normocephalic; Negative for head/scalp atraumatic Head and Scalp: laceration Laceration Details: Positive for avulsion; Negative for actively bleeding Laceration Size: Approximately 10 cm x 2 cm, not approximated no longer bleeding Eyes PERRL, EOMs intact bilaterally and conjunctivae normal Neck supple and no JVD Resp normal respiratory effort, no retractions, no use of accessory muscles and clear to auscultation bilaterally Auscultation: Negative for crackles, rales, rhonchi or wheezes Cardio regular rate, regular rhythm, S1 normal heart sound, S2 normal heart sound and no murmurs GI soft to palpation, non-tender and non-distended; Negative for hepatosplenomegaly Extremity no clubbing, cyanosis or edema Skin no rashes or lesions noted Neuro CN's II-XII intact bilaterally and no sensory deficits noted Motor Exam: strength abnormal flexion and extension Psych affect normal Appearance: appropriate Weight / BMI Weight Weight: 231 lb 7.766 oz Body Mass Index (BMI) 34.2 ABG / Lab / Microbiology Data Result Diagrams: 11/18/20 04:46 11/18/20 04:46 Laboratory: Laboratory Results - last 24 hr 11/17/20 21:45: WBC 6.2, RBC 5.05, Hgb 14.5, Hct 45.3, MCV 89.7, MCH 28.7, MCHC 32.0, RDW Std Deviation 47.3 H, RDW Coeff of Adrian 14.3, Plt Count 121 L, MPV 12.5 H 11/17/20 21:45: PT 13.3, INR 1.1, APTT 31.9 11/17/20 21:45: Sodium 141, Potassium 3.6, Chloride 108 H, Carbon Dioxide 26.0, Anion Gap 7, BUN 20 H, Creatinine 1.38 H, Estim Creat Clear Calc 46.25, Est GFR (MDRD) Af Amer 65, Est GFR (MDRD) Non-Af 53 L, BUN/Creatinine Ratio 14.5, Glu cose 146 H, Calcium 8.9 11/17/20 21:45: Troponin I High Sens 6.8 11/17/20 21:48: Lactic Acid 2.4 H* 11/18/20 01:20: Lactic Acid 1.6 11/18/20 04:46: Sodium 140, Potassium 3.8, Chloride 111 H, Carbon Dioxide 24.0, Anion Gap 5, BUN 18, Creatinine 1.17, Estim Creat Clear Calc 54.55, Est GFR (MDRD) Af Amer 78, Est GFR (MDRD) Non-Af 65, BUN/Creatinine Ratio 15.4, Glucose 91, Calcium 8.3 L, Troponin I High Sens 12.0, Triglycerides 111, Cholesterol 116, LDL Cholesterol 56, VLDL Cholesterol 22, HDL Cholesterol 38 L 11/18/20 04:46: WBC 6.0, RBC 4.68, Hgb 13.6, Hct 45.5, MCV 97.2 H D, MCH 29.1, MCHC 29.9 L D, RDW Std Deviation 51.5 H, RDW Coeff of Adrian 14.4, Plt Count 106 L, MPV 12.8 H, Immature Gran % (Auto) 0.300, Neut % (Auto) 67.7, Lymph % (Auto) 19.2, [place] % (Auto) 11.6 H, Eos % (Auto) 0.7, Baso % (Auto) 0.5, Absolute Neuts (auto) 4.0, Absolute Lymphs (auto) 1.14, Nucleated RBC % 0 11/18/20 06:05: Troponin I High Sens 13.8 11/18/20 10:22: Troponin I High Sens 11.4 Radiography Diagnostic Testing: Radiology Impression Brain CT 11/17/20 21:23 IMPRESSION: Chronic involutional and white matter changes. No acute intracranial process. Individualized dose optimization techniques were used for this CT. at 2140 Reported and signed by: Junior Yang MD Electronically Signed: Junior Yang MD at 21:39 EDT Tel , Service support , Cervical Spine CT 11/17/20 21:27 IMPRESSION: Postsurgical and mild degenerative changes. No evidence of acute cervical spinal fracture. Individualized dose optimization techniques were used for this CT. at 2203 Reported and signed by: Junior Yang MD Electronically Signed: Junior Yang MD at 22:02 EDT Tel , Service support , Chest X-Ray 11/17/20 22:23 IMPRESSION: No radiographic evidence of acute cardiopulmonary disease. at 2321 Reported and signed by: Junior Yang MD Electronically Signed: Junior Yang MD at 23:19 EDT Tel , Service support , Head/Neck CTA 11/17/20 22:59 IMPRESSION: No significant major vessel basal occlusive disease in the head or neck. No significant interval change from the prior study. Individualized dose optimization techniques were used for this CT. at 0002 Reported and signed by: Junior Yang MD Electronically Signed: Junior Yang MD at 0:00 EDT Tel , Service support , ADDENDUM: 11/18/20 0205 IMPRESSION: No significant major vessel basal occlusive disease in the head or neck. No significant interval change from the prior study. Individualized dose optimization techniques were used for this CT. at 0002 Reported and signed by: Junior Yang MD N.B. : The above Results were Read Back by Junior Yang MD to Dr. Christiano Lazo MD, and understanding confirmed on 11/18/2020 00:04:24 (ET). Electronically Signed: Junior Yang MD at 0:00 EDT Tel , Service support , Echocardiogram 11/18/20 04:13 Interpretation Summary Normal LV size. Left ventricular systolic function is normal. The estimated ejection fraction is 60 %. Mild tricuspid valve insufficiency. Stage 2 diastolic dysfunction. Contrast injection was performed. Ordering Physician: Rossana Flores Referring Physician: Victor M Luke Performed By: Lexie Pérez, MONICACS, RVT Brain MRI 11/18/20 04:15 IMPRESSION: 1. No acute intracranial abnormality. 2. No interval change. at 1043 Reported and signed by: Sundar Guevara MD Electronically Signed: Sundar Guevara MD at 10:42 EDT Tel , Service support , D/C Instructions Discharge Diet: Low fat / Low cholesterol and 2000 Calorie Control Diet Call your doctor if you observe: Fever of 101 or Higher, Shortness of breath, Dizziness, Swelling in the ankles, Chest pain and Increased palpitations (irregular heartbeat) Meaningful Use Info Meaningful Use Diagnoses (Choose all that apply): None applicable Discharge Plan Admission Admit Date/Time: 11/18/20 03:54 Attending Provider: Eladio Melendez Primary Care Provider: Victor M Luke Instructions Patient Instructions: ED Chest Pain, Noncardiac Discharge Orders/Prescriptions Prescriptions: Continued fluoxetine 40 mg capsule 40 mg PO DAILY 90 Days Qty: 90 RF: 0 magnesium oxide 400 mg (241.3 mg magnesium) tablet 400 mg PO DAILY RF: 0 amlodipine 10 mg tablet 5 mg PO DAILY RF: 0 metoprolol tartrate 25 mg tablet 25 mg PO BID Qty: 180 RF: 3 aspirin 81 MG tablet 81 mg PO DAILY@0800 RF: 0 cyanocobalamin (vitamin B-12) 1,000 MCG capsule 1,000 mcg PO DAILY Qty: 0 RF: 0 ergocalciferol (vitamin D2) 50 MCG capsule 50 mcg PO DAILY Qty: 0 RF: 0 pantoprazole 40 MG tablet 40 mg PO DAILY RF: 0 atorvastatin 40 MG tablet 40 mg PO QHS RF: 0 glimepiride 2 mg tablet 2 mg PO BID RF: 0 acetaminophen 325 MG tablet 650 mg PO Q6H PRN PRN (Reason: Pain -02/09) RF: 0 mirtazapine [Remeron] 15 mg tablet 15 mg PO QHS RF: 0 spironolactone 25 mg tablet 25 mg PO DAILY Qty: 90 RF: 3 isosorbide mononitrate 60 mg tablet extended release 24 hr 60 mg PO BID Qty: 180 RF: 3 nitroglycerin 0.4 mg tablet, sublingual 0.4 mg SUBLINGUAL Q5-15M PRN (Reason: CHEST PAIN) Qty: 25 RF: 1 furosemide 40 mg tablet 80 mg PO DAILY Qty: 180 RF: 3 clopidogrel 75 mg tablet See Rx Instructions .ROUTE .COMPLEX Qty: 90 RF: 3 potassium chloride 20 mEq tablet,ER particles/crystals 40 meq PO BID Qty: 360 RF: 3 Other Ambulatory Orders: Cardiac Holter Monitor, Set-Up (Routine) Location: None Selected Ordered By: Dr. Eladio Melendez Referrals / Follow Up: Victor M Luke DO [Primary Care Provider] - In 1 Week Disposition Disposition (needs filled in before D/C Order can be placed): Home, Self Care Charges/Coding Visit Charges OBSV E&M: 55604 Observation care discharge
== END 2020-11-18 16:28 | disposition home or self-care (01) ==
LOC: ED 11-18 01:14 → PCU 11-18 02:26
PROVIDERS: Admitting Provider Student in an Organized Health Care Education/Training Program; Emergency Provider Emergency Medicine; PCP Family Medicine; Visit Provider Family Medicine
DX: R55 Syncope and collapse (principal); R07.9 Chest pain, unspecified; N18.30 Chronic kidney disease, stage 3 unspecified; E11.22 Type 2 diabetes mellitus with diabetic chronic kidney disease; I13.0 Hypertensive heart and chronic kidney disease with heart failure and stage 1 through stage 4 chronic kidney disease, or unspecified chronic kidney disease; E78.5 Hyperlipidemia, unspecified; I25.10 Atherosclerotic heart disease of native coronary artery without angina pectoris; G47.33 Obstructive sleep apnea (adult) (pediatric); I50.32 Chronic diastolic (congestive) heart failure; J44.9 Chronic obstructive pulmonary disease, unspecified; R53.1 Weakness; E66.9 Obesity, unspecified; E87.2 Acidosis; F32.9 Major depressive disorder, single episode, unspecified; K21.9 Gastro-esophageal reflux disease without esophagitis; F41.9 Anxiety disorder, unspecified; Z86.73 Personal history of transient ischemic attack (TIA), and cerebral infarction without residual deficits; Z79.899 Other long term (current) drug therapy; Z79.82 Long term (current) use of aspirin; Z79.84 Long term (current) use of oral hypoglycemic drugs; Z95.5 Presence of coronary angioplasty implant and graft; Z87.891 Personal history of nicotine dependence; Z79.02 Long term (current) use of antithrombotics/antiplatelets; Z68.34 Body mass index [BMI] 34.0-34.9, adult; S01.01XA Laceration without foreign body of scalp, initial encounter; W10.9XXA Fall (on) (from) unspecified stairs and steps, initial encounter; Y93.01 Activity, walking, marching and hiking; Y92.9 Unspecified place or not applicable
CPT/HCPCS: 36415; 70450; 70496; 70498; 70551; 71045; 72125; 80048; 80061; 83605; 84484; 85025; 85027; 85610; 85730; 93005; 93225; 93226; 93306; 94762; 96372; 97162; 97166; 99218; 99285; Q9957; Q9967; A4216; C8929; G0378; J3490

== ENCOUNTER 2020-12-13 10:30 | Outpatient (RCR) | payer MEDICARE, OTHER, SELFPAY ==
[2018-08-03 13:04] VITALS: BMI 19.8
[2020-11-18 10:09] VITALS: BMI 34.2
[2020-12-06 09:21] VITALS: RESP 18; TEMP 36.6; BMI 34.2
--- NOTE | 2020-12-06 13:48 | HP.PCM_ITS ---
History of Present Illness Date of Service: 12/06/20 Chief Complaint: Nonhealing scalp laceration History of Wound: This is a 75-year-old male who presents to the wound healing center for evaluation and treatment of a nonhealing laceration that occurred after he fell and hit his head on 11/18/2020. The laceration was repaired in the emergency room with dissolvable sutures and several nylon sutures. He saw his PCP for follow up after ER visit on 11/25/2020. Sutures were not removed at that time due to concern for possible dehiscence as the wound appeared to have poor approximation in some parts. He was seen again on 12/03/2020 where sutures were removed and there was some debridement of scabbing which revealed open wound and dehiscence of the laceration. His PCP advised using neosporin and covering with gauze. He has been doing this daily. He has not really washed his hair because he did not want to irritate the wound. He generally has no difficulties healing wounds. His PCP started him on Keflex on 12/03/2020 for treatment for possible infection. He has been tolerating this well and feels like he has noticed some improvement in his wound. He denies fever, chills, odor, increased pain or increased erythema. [facility] Medical History (Updated 12/09/20 @ 12:[address] Juli Walter DO) Atherosclerotic heart disease [place] coronary artery w/angina pectoris 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, stage 3 COPD (chronic obstructive pulmonary disease) Essential hypertension Hyperlipidemia Obesity Obstructive sleep apnea TIA (transient ischemic attack) Type 2 diabetes mellitus without complications Home Medications aspirin 81 mg PO DAILY@0800 01/21/17 [History Last Taken 12/19/19] fluoxetine 40 mg capsule 40 mg PO DAILY 90 Days #90 cap 09/21/18 [History Last Taken 12/19/19] mirtazapine 15 mg tablet 15 mg PO QHS tab 09/21/18 [History Last Taken 12/19/19] cyanocobalamin (vitamin B-12) 1,000 mcg PO DAILY #0 06/01/19 [History Last Taken 12/19/19] ergocalciferol (vitamin D2) 50 mcg PO DAILY #0 06/01/19 [History Last Taken 12/19/19] isosorbide mononitrate 60 mg tablet,extended release 24 hr 60 mg PO BID #180 tab 12/04/19 [Rx Last Taken 12/19/19] nitroglycerin 0.4 mg sublingual tablet 0.4 mg SUBLINGUAL Q5-15M PRN #25 tab 12/04/19 [Rx Last Taken 1 Week Ago ~12/13/19] furosemide 40 mg tablet 80 mg PO DAILY #180 tab 12/05/19 [Rx Last Taken 12/19/19] magnesium oxide 400 mg (241.3 mg magnesium) tablet 400 mg PO DAILY tab 12/05/19 [History Last Taken 12/19/19] atorvastatin 40 mg PO QHS 12/20/19 [History Last Taken 12/19/19] pantoprazole 40 mg PO DAILY 12/20/19 [History Last Taken 12/19/19] acetaminophen 650 mg PO Q6H PRN PRN tab 01/03/20 [Rx Last Taken Unknown] amlodipine 10 mg tablet 5 mg PO DAILY tab 01/09/20 [History Last Taken Unknown] metoprolol tartrate 25 mg tablet 25 mg PO BID #180 tab 01/09/20 [Rx Last Taken Unknown] clopidogrel 75 mg tablet See Rx Instructions .ROUTE .COMPLEX #90 tablet 07/29/20 [Rx Last Taken Unknown] glimepiride 2 mg tablet 2 mg PO BID tablet 08/12/20 [History Last Taken Unknown] potassium chloride 20 mEq tablet,extended release(part/cryst) 40 meq PO BID #360 tab 09/02/20 [Rx Last Taken Unknown] spironolactone 25 mg tablet 25 mg PO DAILY #90 tab 11/28/20 [Rx Last Taken Unknown] Allergy/AdvReac Type Severity Reaction Status Date / Time No Known Allergies Allergy Verified 11/17/20 21:50 Surgical History History of coronary artery stent placement (08/13/17) History of herniorrhaphy History of percutaneous transluminal coronary angioplasty (08/18/18) History of prostatectomy History of tonsillectomy Hx of cholecystectomy Social History Smoking Status: Former smoker quit date: 05/03/98 pack-years: 50 how long ago did patient quit smokin years ago alcohol intake: never substance use type: does not use caffeine: Yes Type: coffee and tea Number of servings: 6 ROS Constitutional Constitutional: Denies chills or fever(s) Eyes Eyes: Denies blurry vision or loss of vision ENT HEENT: Reports dizziness; Denies ear pain, headache(s) or hearing loss Cardiovascular Cardiovascular: Denies chest pain or dyspnea at rest Respiratory/Chest Respiratory/Chest: Denies cough or dyspnea Gastrointestinal Gastrointestinal: Denies diarrhea, nausea or vomiting Genitourinary Genitourinary: Denies dysuria Musculoskeletal Musculoskeletal: Denies difficulty walking or muscle weakness Integumentary Integumentary: Reports wounds Neurologic Neurologic: Reports dizziness Psychiatric Psychiatric: Denies homicidal ideation or suicidal ideation Hematologic/Lymphatic Hematologic/Lymphatic: Denies easy bleeding or easy bruising Vital Signs Vital Signs Vital Signs: 12/06/20 09:21 Temperature 98 F Temperature Source Oral Respiratory Rate 18 Weight Body Mass Index (BMI) 34.2 Physical Exam Const alert, oriented x3 and no apparent distress General Appearance: cooperative Nutritional Appearance: obese HEENT normocephalic Mouth: oral and palatal mucosa normal Throat: posterior oropharynx normal Eyes PERRL Neck full ROM Lymph Lymphatic: no lymphadenopathy noted Resp normal respiratory effort Effort and Inspection: able to speak in complete sentences Auscultation: clear to auscultation bilaterally Cardio regular rate and regular rhythm GI soft to palpation, non-tender and no masses Skin Wounds: wounds noted Wound Narrative: as in clinical panel right scalp Psych mental status grossly normal, thought process normal, cooperative and affect normal Debridement Note Debridement Note Post-Debridement Measurements and Additional Note: Post-Debridement Measurements/Treatment - Nurse 1 - General Ulcer Assessment Start: 12/06/20 09:21 Freq: Status: Active Protocol: TOOTIE Activity Type Activity Date Activity User E-Sign Co-Sign Detail Recorded Client Recorded Date Recorded By Document 12/06/20 09:21 EAGLE [id number] 12/06/20 09:30 RB 12/06/20 09:21 - Today's Visit Information Type of service Initial Visit Arrival Mode Ambulatory Transfer Assistance None Patient Identification Verified (Name & Yes ) Patient Requires Transmission-Based No Precautions Height and Weight Body Mass Index (BMI) 34.2 BMI Classification Obese Vital Signs Temperature (97.8 F-99.1 F) 98 F Temperature Source Oral Respiratory Rate (12-18) 18 Respiratory rate source Observation History Since Last Visit- (Skip if this is Patient's initial visit) Have you changed medications since your No last visit? Any new allergies or adverse reactions No Had a fall/change in ADL's that may No increase risk of falls Have you been in the hospital since your No last visit? Has dressing in place as prescribed Yes Has compression in place as prescribed No Has offloadiing in place as prescribed No Experienced any changes in pain level or No management Left Footwear Regular Shoe Right Footwear Regular Shoe Pain Scale: 0-10 Numeric Is Patient Pain Free? Yes - Nurse 1 - General Ulcer Measurement Start: 12/06/20 09:21 Freq: Status: Active Protocol: Activity Type Activity Date Activity User E-Sign Co-Sign Detail Recorded Client Recorded Date Recorded By Document 12/06/20 09:21 RB [id number] 12/06/20 09:30 RB 12/06/20 09:21 Wound Center Nurse 1 1. right scalp -Combined with other wound No -Current Size (cm) - Length 0.5 -Current Size (cm) - Width 7 -Current Size (cm) - Depth 0.1 -Total Square Cm 3.5 -Photo Taken Yes -Tunneling No -Undermining/Tunneling No -Circular Undermining No -Exudate Amt Small -Exudate Type Serosanguineous -Wound Margin Flat & Intact -Granulation Amt Medium (34-66%) -Granulation Quality Evan -Slough/Fibrin Yes -Necrosis Amt Small (1-33%) -Necrotic Tissue Type Adherent Slough -Structure Exposed N/A -Texture ([place]-wound Skin Appearance) Assessed -Moisture ([place]-wound Skin Appearance) Assessed -Color ([place]-wound Skin Appearance) Assessed -Temperature ([place]-wound Skin No Abnormality Appearance) (Pt Warm) -Tenderness on Palpation ([place]-wound No Skin Appearance) -Ulcer Cleansing Wound Cleanser -Foul Odor after Cleansing No -Anesthetic Used 5% Lidocaine Gel - Nurse 2 - General Ulcer CM Notes Start: 12/06/20 09:21 Freq: Status: Active Protocol: Activity Type Activity Date Activity User E-Sign Co-Sign Detail Recorded Client Recorded Date Recorded By Document 12/06/20 09:58 MW [id number] 12/06/20 10:37 MW 12/06/20 09:58 Wound Center Nurse 2 -Time 09:58 -Correct Patient Yes -Correct Side, Site, Position Yes -Correct Procedure Yes -Procedure Performed Yes -Type of Procedure Debridement -Clinical Debridement Subcutaneous -Tissue Removed Subcutaneous -Post Debridement (cm) - Length 7.1 -Post Debridement (cm) - Width 0.7 -Post Debridement (cm) - Depth 0.1 -Total Square (Post) (cm) 4.97 -Area of Debridement (cm) - Length 7.1 -Area of Debridement (cm) - Width 0.7 -Total Square (Area) (cm) 4.97 -Tunneling No -Circular Undermining No -Wound/Ulcer Outcome Not Healed -Ulcer Cleansing Rinsed/ Irrigated with Saline -Foul Odor after Cleansing No -Bioengineered Tissue No -Bleeding Controlled with Pressure -Offloading No -Treatment Response Procedure Tolerated Well -Debridement - Subq, 1st 20sq cm Yes Pain Scale: 0-10 Numeric Is Patient Pain Free? Yes - Nurse 3 - General Ulcer D/C NN Start: 12/06/20 09:21 Freq: Status: Active Protocol: Activity Type Activity Date Activity User E-Sign Co-Sign Detail Recorded Client Recorded Date Recorded By Document 12/06/20 10:37 MW [id number] 12/06/20 10:37 MW 12/06/20 10:37 Wound Care Nurse 3 1. right scalp -Ulcer Cleansing Rinsed/ Irrigated with Saline -Foul Odor after Cleansing No -Negative Pressure Wound Therapy N/A -Primary Dressing Applied C Hydrogel ($) -Primary Dressing Covered/Secured with Dry Gauze Treatment Response Procedure Tolerated Well Pain Scale: 0-10 Numeric Is Patient Pain Free? Yes Teaching: Wound Center Dressing Your Wound -Person Taught Patient,Family -Teaching Method Demonstration -Response to teaching Verbalize understanding WC - Visit Discharge Discharge Condition Stable Ambulatory Status Ambulatory Transportation Private Auto Accompanied by Medication Reconcilliation completed & No provided to patient/care provider Clinical Summary of Care Provided Yes Wound debrided: right scalp Laterality: Right Type of Debridement: Excisional debridement Anesthesia Used: 5% Lidocaine Gel and Cetacaine Depth: Down to and including healthy tissue and in the subcutaneous layer Percentage of wound debrided: 100 Instrument Used: #15 blade and Forceps Tissue Removed: Yellow slough, devitalized tissue Severity: Fat Layer Exposed Amount of bleeding with debridement: Mild Bleeding Controlled with: Compression and gauze Patient tolerated procedure: Patient tolerated procedure well Assessment/Plan Assessment/Plan (1) COPD (chronic obstructive pulmonary disease): CODE(S): J44.9 - Chronic obstructive pulmonary disease, unspecified QUALIFIERS: COPD type: unspecified COPD Qualified Code(s): J44.9 - Chronic obstructive pulmonary disease, unspecified (2) Essential hypertension: CODE(S): I10 - Essential (primary) hypertension (3) 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.9): CODE(S): E66.9 - Obesity, unspecified (4) CAD (coronary artery disease): CODE(S): I25.10 - Atherosclerotic heart disease of [place] coronary artery without angina pectoris QUALIFIERS: Coronary Disease-Associated Artery/Lesion type: [place] artery [place] vs. transplanted heart: [place] heart Associated angina: without angina Qualified Code(s): I25.10 - Atherosclerotic heart disease of [place] coronary artery without angina pectoris (5) 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, stage 3: CODE(S): N18.3 - 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, stage 3 (moderate) QUALIFIERS: 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 stage 3 subtype: stage 3b (GFR 30-44) Qualified Code(s): N18.32 - 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, stage 3b (6) Obstructive sleep apnea: CODE(S): G47.33 - Obstructive sleep apnea (adult) (pediatric) (7) Type 2 diabetes mellitus without complications: CODE(S): E11.9 - Type 2 diabetes mellitus without complications QUALIFIERS: 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 There are no current signs of infection. Wound culture not performed at this time but will consider doing so if there are any changes associated with infection or he does not progress and expected. He is currently on Keflex prescribed by his PCP. Will have him wash his wound with soap and water daily and apply hydrogel and cover with gauze for mild drainage. Encouraged control of blood sugars, increased protein intake to facilitate healing. Will obtain most recent A1C from PCP. Advised to call if he has increased pain, drainage, odor or erythema. Will have him follow up in 1 week for wound care.
[2020-12-13 10:29] VITALS: BP 123/75; PULSE 56; RESP 16; TEMP 35.9; BMI 34.2
--- NOTE | 2020-12-13 11:03 | PCM.WC.PN ---
History of Present Illness Date of Service: 12/13/20 Chief Complaint: Nonhealing scalp laceration History of Wound: This is a 75-year-old male who presents to the wound healing center for evaluation and treatment of a nonhealing laceration that occurred after he fell and hit his head on 11/18/2020. The laceration was repaired in the emergency room with dissolvable sutures and several nylon sutures. He saw his PCP for follow up after ER visit on 11/25/2020. Sutures were not removed at that time due to concern for possible dehiscence as the wound appeared to have poor approximation in some parts. He was seen again on 12/03/2020 where sutures were removed and there was some debridement of scabbing which revealed open wound and dehiscence of the laceration. His PCP advised using neosporin and covering with gauze. He has been doing this daily. He has not really washed his hair because he did not want to irritate the wound. He generally has no difficulties healing wounds. His PCP started him on Keflex on 12/03/2020 for treatment for possible infection. He has been tolerating this well and feels like he has noticed some improvement in his wound. He denies fever, chills, odor, increased pain or increased erythema. Progress of Wound: Eriberto's wound is greatly improved and healed today. Objective Data Objective Data Vital Signs: Vital Signs Temp Pulse Resp BP 96.7 F L 56 L 16 123/75 H 12/13/20 10:29 12/13/20 10:29 12/13/20 10:29 12/13/20 10:29 Oxygen Delivery Method Room Air Body Mass Index (BMI) 34.2 Physical Exam Const alert, oriented x3 and no apparent distress General Appearance: cooperative Nutritional Appearance: obese HEENT normocephalic Eyes PERRL Neck full ROM Lymph Lymphatic: no lymphadenopathy noted Resp normal respiratory effort Effort and Inspection: able to speak in complete sentences Auscultation: clear to auscultation bilaterally Cardio regular rate and regular rhythm GI soft to palpation, non-tender and no masses Skin Wounds: wounds noted Wound Narrative: as in clinical panel right scalp Psych mental status grossly normal, thought process normal, cooperative and affect normal Debridement Note Debridement Note Wound debrided: right scalp No debridement was completed: No debridement was completed today (healed) Assessment/Plan Assessment/Plan (1) COPD (chronic obstructive pulmonary disease): CODE(S): J44.9 - Chronic obstructive pulmonary disease, unspecified QUALIFIERS: COPD type: unspecified COPD Qualified Code(s): J44.9 - Chronic obstructive pulmonary disease, unspecified (2) Essential hypertension: CODE(S): I10 - Essential (primary) hypertension (3) 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.9): CODE(S): E66.9 - Obesity, unspecified (4) CAD (coronary artery disease): CODE(S): I25.10 - Atherosclerotic heart disease of [place] coronary artery without angina pectoris QUALIFIERS: Coronary Disease-Associated Artery/Lesion type: [place] artery [place] vs. transplanted heart: [place] heart Associated angina: without angina Qualified Code(s): I25.10 - Atherosclerotic heart disease of [place] coronary artery without angina pectoris (5) 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, stage 3: CODE(S): N18.3 - 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, stage 3 (moderate) QUALIFIERS: 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 stage 3 subtype: stage 3b (GFR 30-44) Qualified Code(s): N18.32 - 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, stage 3b (6) Obstructive sleep apnea: CODE(S): G47.33 - Obstructive sleep apnea (adult) (pediatric) (7) Type 2 diabetes mellitus without complications: CODE(S): E11.9 - Type 2 diabetes mellitus without complications QUALIFIERS: 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 Will have him wash his wound with soap and water daily and apply hydrogel for the next week. Encouraged control of blood sugars, increased protein intake to facilitate healing. Advised to call if he has increased pain, drainage, odor or erythema. He will be discharged from treatment at the wound center at this time. It has been a pleasure to treat him. He was advised to return if he has any problems with this wound again in the near future.
== END 2020-12-13 10:38 | disposition home or self-care (01) ==
LOC: WC 10:30
PROVIDERS: PCP Family Medicine; Visit Provider Family Medicine
DX: S01.01XD Laceration without foreign body of scalp, subsequent encounter (principal); W19.XXXD Unspecified fall, subsequent encounter; E78.5 Hyperlipidemia, unspecified; I12.9 Hypertensive chronic kidney disease with stage 1 through stage 4 chronic kidney disease, or unspecified chronic kidney disease; E11.22 Type 2 diabetes mellitus with diabetic chronic kidney disease; N18.32 Chronic kidney disease, stage 3b; I25.119 Atherosclerotic heart disease of native coronary artery with unspecified angina pectoris; J44.9 Chronic obstructive pulmonary disease, unspecified; G47.33 Obstructive sleep apnea (adult) (pediatric); E66.9 Obesity, unspecified; Z79.899 Other long term (current) drug therapy; Z79.82 Long term (current) use of aspirin; Z79.84 Long term (current) use of oral hypoglycemic drugs; Z79.02 Long term (current) use of antithrombotics/antiplatelets; Z87.891 Personal history of nicotine dependence; Z68.34 Body mass index [BMI] 34.0-34.9, adult
CPT/HCPCS: 11042; 99213; G0463

== ENCOUNTER → 2021-01-27 08:18 | Outpatient (CLI) | payer MEDICARE, OTHER, SELFPAY ==
[2018-08-03 13:04] VITALS: BMI 19.8
== END ==
PROVIDERS: PCP Family Medicine; Referring Provider Nurse Practitioner Family; Visit Provider Nurse Practitioner Family
DX: Z20.822 Contact with and (suspected) exposure to COVID-19 (principal)
CPT/HCPCS: 87635; U0005; U0003

== ENCOUNTER → 2021-04-16 11:56 | Outpatient (CLI) | payer MEDICARE, OTHER, SELFPAY ==
[2018-08-03 13:04] VITALS: BMI 19.8
[2021-04-16 13:09] LABS: Anion Gap 7 (5-15); BUN 21 mg/dL (7-18); BUN/Creat Ratio 15.9 RATIO (10-20); Calcium,Total 9.4 mg/dL (8.5-10.1); Chloride 101 mmol/L (98-107); Creatinine, Serum 1.32 mg/dL (0.70-1.30); D-Dimer Quantitative (DVT/PE) 0.31 FEU/ug/m (0.27-0.49); EST Glomerular Filtration Rate 56 mL/min (>60); Est Glom Filt Rate - Afr Amer 68 mL/min (>60); Glucose 214 mg/dL (74-106); Magnesium 2.3 mg/dL (1.6-2.6); Potassium 3.7 mmol/L (3.5-5.1); Sodium Level 136 mmol/L (136-145)
== END ==
PROVIDERS: PCP Family Medicine; Visit Provider Physician Assistant Medical
DX: I25.119 Atherosclerotic heart disease of native coronary artery with unspecified angina pectoris (principal); I10 Essential (primary) hypertension; E78.5 Hyperlipidemia, unspecified; R25.2 Cramp and spasm
CPT/HCPCS: 36415; 80048; 83735; 85379

== ENCOUNTER 2021-05-16 10:08 | Outpatient (CLI) | payer MEDICARE, OTHER, SELFPAY ==
[2018-08-03 13:04] VITALS: BMI 19.8
--- NOTE | 2021-05-15 16:00 | LES_PTH ---
PATIENT: GERRY GARCIA LOC: [facility] U#:[id number] AGE/SX: 75/M ROOM: RE05/16/[address]: Dr. Tesfaye Luong MD : 1945 BED: DIS: 05/16/2021 SPEC #: [id number] RECD: 05/16/21 09:55 STATUS: PEDRO RESergey #: [id number] LOVE: 05/15/21 16:[address]: Tesfaye Luong DEPT: SURGICAL PATHOLOGY RECD BY: Rosa Conroy ENTERED: 05/16/21 12:34 SP TYPE: Lesion OTHR DR: Dr. Victor M Luke, DO Tissues: Skin of eyelid, NOS Procedures: Surgery Specimen Level IV HEADER OPERATION: Not noted PRE-OP DIAGNOSIS: RLL TISSUE SUBMITTED: RLL MICROSCOPIC DIAGNOSIS Right lower lid lesion, biopsy: Consistent with eccrine hidrocystoma. AM:kirill 05/19/2021 COMMENT Case has been reviewed in consultation with Dr. Chambers who concurs with the above diagnosis. IDC:SJ MICROSCOPIC DESCRIPTION Slides are reviewed. GROSS DESCRIPTION Received in fixative is one container labeled with the patient's name and designated RLL. The specimen consists of a fragment of dai-white skin measuring 0.5 x 0.3 x 0.2 cm. The entire specimen is submitted in one cassette. / KEYON:kirill 05/16/2021 TC:1 CPT: 13142
== END 2021-05-16 23:59 | disposition short-term general hospital (02) ==
LOC: LABSPEC 10:11
PROVIDERS: PCP Family Medicine; Visit Provider Ophthalmology
DX: H02.89 Other specified disorders of eyelid (principal)
CPT/HCPCS: 88305

== ENCOUNTER 2021-05-19 15:41 | Emergency (ER) | payer MEDICARE, OTHER, SELFPAY ==
[2018-08-03 13:04] VITALS: BMI 19.8
[2021-05-19 15:42] VITALS: BP 172/94; PULSE 63; RESP 15; TEMP 35.8; O2SAT 99; BMI 34.0
[2021-05-19 15:43] VITALS: BP 172/94; PULSE 63; RESP 15; TEMP 35.8; O2SAT 99
--- NOTE | 2021-05-19 16:02 | EDS_ITS ---
HPI HPI - GI History of Present Illness Chief Complaint: Abd Pain Informant: patient Abdominal Pain/Flank Pain Onset: Days (3-4) Context: Sudden Onset Timing: Continuous Quality: Aching and Sharp Location: RLQ Worsened by: Movement Relieved by: Nothing Nausea/Vomiting/Emesis GI Symptom: Positive for Nausea; Negative for Vomiting Diarrhea/Melena/Hematochezia GI Symptom: Positive for Diarrhea; Negative for Melena and Hematochezia Associated Symptoms Associated Symptoms: Negative for Dysuria, Frequency and Hematuria Narrative Narrative: Patient presents with right lower quadrant abdominal pain that has been getting worse over the past 3 to 4 days. Patient states it began rather suddenly. Patient states the pain is constant dull but sharp at times. Patient states the pain is localized to the right lower quadrant. Patient states it is worse with certain movements. Patient states nothing seems to help with it. Patient admits to nausea but denies any vomiting. Patient admits to some diarrhea but denies any melena or hematochezia. Patient denies any dysuria or hematuria. Patient denies any back or flank pain. PFSH PFS Medical History (Updated 05/19/21 @ 18:[address] Shaan Hirsch, DO) Atherosclerotic heart disease [place] coronary artery w/angina pectoris 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, stage 3 COPD (chronic obstructive pulmonary disease) Essential hypertension Hyperlipidemia Obesity Obstructive sleep apnea TIA (transient ischemic attack) Type 2 diabetes mellitus without complications Home Medications aspirin 81 mg PO DAILY@0800 01/21/17 [History Last Taken 12/19/19] fluoxetine 40 mg capsule 40 mg PO DAILY 90 Days #90 cap 09/21/18 [History Last Taken 12/19/19] mirtazapine 15 mg tablet 15 mg PO QHS tab 09/21/18 [History Last Taken 12/19/19] cyanocobalamin (vitamin B-12) 1,000 mcg PO DAILY #0 06/01/19 [History Last Taken 12/19/19] ergocalciferol (vitamin D2) 50 mcg PO DAILY #0 06/01/19 [History Last Taken 12/19/19] magnesium oxide 400 mg (241.3 mg magnesium) tablet 400 mg PO DAILY tab 12/05/19 [History Last Taken 12/19/19] pantoprazole 40 mg PO DAILY 12/20/19 [History Last Taken 12/19/19] acetaminophen 650 mg PO Q6H PRN PRN tab 01/03/20 [Rx Last Taken Unknown] amlodipine 10 mg tablet 5 mg PO DAILY tab 01/09/20 [History Last Taken Unknown] clopidogrel 75 mg tablet See Rx Instructions .ROUTE .COMPLEX #90 tablet 07/29/20 [Rx Last Taken Unknown] glimepiride 2 mg tablet 2 mg PO BID tablet 08/12/20 [History Last Taken Unknown] potassium chloride 20 mEq tablet,extended release(part/cryst) 40 meq PO BID #360 tab 09/02/20 [Rx Last Taken Unknown] spironolactone 25 mg tablet 25 mg PO DAILY #90 tab 11/28/20 [Rx Last Taken Unknown] atorvastatin 40 mg tablet 40 mg PO QHS #90 tab 01/07/21 [Rx Last Taken Unknown] furosemide 40 mg tablet 80 mg PO DAILY #180 tab 01/20/21 [Rx Last Taken Unknown] isosorbide mononitrate 60 mg tablet,extended release 24 hr 60 mg PO BID #180 tab 02/17/21 [Rx Last Taken Unknown] nitroglycerin 0.4 mg sublingual tablet 0.4 mg SUBLINGUAL Q5-15M PRN #25 tab 02/20/21 [Rx Last Taken Unknown] metoprolol tartrate 25 mg tablet See Rx Instructions .ROUTE .COMPLEX #180 tab 03/31/21 [Rx Last Taken Unknown] metolazone 2.5 mg tablet 2.5 mg PO Q OTHER DAY 04/09/21 [History Last Taken Unknown] ciprofloxacin HCl 500 mg PO BID #20 tablet 05/19/21 [Rx Last Taken Unknown] metronidazole 500 mg PO Q6H #40 tab 05/19/21 [Rx Last Taken Unknown] Allergy/AdvReac Type Severity Reaction Status Date / Time No Known Allergies Allergy Verified 05/19/21 15:44 Surgical History History of coronary artery stent placement (08/13/17) History of herniorrhaphy History of percutaneous transluminal coronary angioplasty (08/18/18) History of prostatectomy History of tonsillectomy Hx of cholecystectomy Social History Smoking Status: Former smoker quit date: 05/03/98 pack-years: 50 how long ago did patient quit smokin years ago alcohol intake: never substance use type: does not use caffeine: Yes Type: coffee and tea Number of servings: 6 ROS ROS ED Constitutional Constitutional ED: Denies chills or fever(s) Eyes Eyes: Denies blurry vision or change in vision ENT ENT ED: Denies rhinorrhea or sore throat Cardiovascular Cardiovascular: Denies chest pain or palpitations Respiratory/Chest Respiratory/Chest: Denies cough or dyspnea Gastrointestinal Gastrointestinal: Reports abdominal pain, diarrhea and nausea; Denies vomiting Genitourinary Genitourinary ED: Denies dysuria or hematuria Musculoskeletal Musculoskeletal: Denies back pain or neck pain Integumentary Denies abscess or rash Neurologic Neurologic: Denies headache(s) or weakness Allergic/Immunologic Allergic/Immunologic ED: Denies mouth swelling or urticaria EXAM Physical Exam Const Vital Signs: 05/19/21 15:42 05/19/21 15:43 05/19/21 17:55 Temperature 96.5 F L 96.5 F L Temperature Source Temporal Temporal Pulse Rate 63 63 Respiratory Rate 15 15 16 Blood Pressure 172/94 H 172/94 H Blood Pressure Mean 120 120 Pulse Ox 99 99 Oxygen Delivery Method Room Air Room Air Positive well nourished and well developed General Appearance ED: well developed HEENT Reports moist mucous membranes Neck supple and no JVD Resp normal respiratory effort and clear to auscultation bilaterally Cardio regular rate, regular rhythm and no murmurs GI normal to inspection, nondistended, normoactive bowel sounds Auscultation: normoactive bowel sounds Palpation: soft and tender RLQ; Negative for guarding or rebound tenderness present Extremity normal to inspection and full ROM General Extremety ED: Negative for edema or tenderness General Extremity: Negative for edema Neuro oriented x3, CN's II-XII intact bilaterally and no sensory deficits noted Sensorium / Orientation: alert Motor Exam: strength 5/5 throughout Psych mental status grossly normal Skin no rashes or lesions noted MDM MDM MDM Narrative Medical decision making narrative: Patient was given IV fluids, morphine, and Zofran. CBC was essentially within normal limits. Comprehensive metabolic profile showed a creatinine of 1.38 and BUN of 19. This is consistent with prior results. Lipase was normal. Urinalysis does not show any evidence of urinary tract infection. CT scan of the abdomen pelvis was obtained. There is acute diverticulitis of the ascending colon. The appendix was visualized and was normal. This was interpreted by the radiologist and reviewed by myself. Patient was started on Cipro and Flagyl here. Patient was given prescription for Cipro and Flagyl. Case was discussed with patient's primary care physician who saw the patient earlier today and referred him to the emergency department. He was advised of the findings. He is agreeable with the treatment. He will follow-up with the patient as an outpatient. Patient understood and was agreeable with the plan. All questions were answered. Lab Data Attestation: I reviewed the patient's lab results. Labs: Laboratory Results - last 24 hr 05/19/21 05/19/21 05/19/21 15:38 15:56 15:56 WBC 9.4 RBC 5.30 Hgb 15.3 Hct 47.6 MCV 89.8 MCH 28.9 MCHC 32.1 RDW Std Deviation 46.7 H RDW Coeff of [place] 14.3 Plt Count 158 MPV 12.5 H Immature Gran % (Auto) 0.300 Neut % (Auto) 70.5 H Lymph % (Auto) 18.3 L [place] % (Auto) 9.3 Eos % (Auto) 1.2 Baso % (Auto) 0.4 Absolute Neuts (auto) 6.6 Absolute Lymphs (auto) 1.72 Nucleated RBC % 0 Sodium 139 Potassium 3.8 Chloride 106 Carbon Dioxide 26.0 Anion Gap 7 BUN 19 H Creatinine 1.38 H Estim Creat Clear Calc 46.25 Est GFR (MDRD) Af Amer 65 Est GFR (MDRD) Non-Af 53 L BUN/Creatinine Ratio 13.8 Glucose 182 H Calcium 9.2 Total Bilirubin 1.20 H AST 25 ALT 44 Alkaline Phosphatase 156 H Total Protein 7.9 Albumin 3.7 Globulin 4.2 Albumin/Globulin Ratio 0.9 Lipase 199 Urine Color Straw Urine Clarity Clear Urine pH 5.0 Ur Specific [place] 1.010 Urine Protein Negative Urine Glucose (UA) Normal Urine Ketones Negative Urine Occult Blood Negative Urine Nitrite Negative Urine Bilirubin Negative Urine Urobilinogen Normal Ur Leukocyte Esterase Negative Urine RBC 0 SEEN Urine WBC 0 SEEN Ur Squamous Epith Cells 0 SEEN Urine Bacteria 0 SEEN Urine Mucus 0 SEEN Radiography Diagnostic Testing: Clinical Impression(s) from Imaging Studies Abdomen/Pelvis CT 05/19/21 17:42 Discharge Plan Triage Chief Complaint: Abd Pain ED Provider: Shaan Hirsch Dx/Rx/DC Orders Clinical Impression: Diverticulitis Instructions: ED Diverticulitis Prescriptions: New metronidazole [metronidazole] 500 MG tablet 500 mg PO Q6H Qty: 40 RF: 0 ciprofloxacin HCl [ciprofloxacin HCl] 500 MG tablet 500 mg PO BID Qty: 20 RF: 0 No Action fluoxetine 40 mg capsule 40 mg PO DAILY 90 Days Qty: 90 RF: 0 magnesium oxide 400 mg (241.3 mg magnesium) tablet 400 mg PO DAILY RF: 0 amlodipine 10 mg tablet 5 mg PO DAILY RF: 0 nitroglycerin 0.4 mg tablet, sublingual 0.4 mg SUBLINGUAL Q5-15M PRN (Reason: CHEST PAIN) Qty: 25 RF: 3 aspirin 81 MG tablet 81 mg PO DAILY@0800 RF: 0 cyanocobalamin (vitamin B-12) 1,000 MCG capsule 1,000 mcg PO DAILY Qty: 0 RF: 0 ergocalciferol (vitamin D2) 50 MCG capsule 50 mcg PO DAILY Qty: 0 RF: 0 pantoprazole 40 MG tablet 40 mg PO DAILY RF: 0 glimepiride 2 mg tablet 2 mg PO BID RF: 0 acetaminophen 325 MG tablet 650 mg PO Q6H PRN PRN (Reason: Pain -02/09) RF: 0 mirtazapine [Remeron] 15 mg tablet 15 mg PO QHS RF: 0 clopidogrel 75 mg tablet See Rx Instructions .ROUTE .COMPLEX Qty: 90 RF: 3 potassium chloride 20 mEq tablet,ER particles/crystals 40 meq PO BID Qty: 360 RF: 3 spironolactone 25 mg tablet 25 mg PO DAILY Qty: 90 RF: 3 atorvastatin 40 mg tablet 40 mg PO QHS Qty: 90 RF: 3 furosemide 40 mg tablet 80 mg PO DAILY Qty: 180 RF: 3 isosorbide mononitrate 60 mg tablet extended release 24 hr 60 mg PO BID Qty: 180 RF: 3 metoprolol tartrate 25 mg tablet See Rx Instructions .ROUTE .COMPLEX Qty: 180 RF: 3 metolazone 2.5 mg tablet 2.5 mg PO Q OTHER DAY RF: 0 Primary Care Provider: Victor M Luke Referrals: Victor M Luke DO [Primary Care Provider] - 5-7 Days Disposition Disposition: Home, Self Care
[2021-05-19] MEDS: 0.9% Normal Saline 1,000 ML 1000 ML IV (16:06)
[2021-05-19] MEDS: Ondansetron 4 MG/2 ML Vial IV (16:06)
[2021-05-19] MEDS: Morphine 4 MG/ML Syringe IV (16:06)
[2021-05-19 16:09] LABS: Absolute Lymphocyte Count 1.72 X10^3/uL (0.83-4.51); Absolute Neutrophil Count 6.6 X10^3/uL (2.0-7.7); Basophil# 0.04 X10^3/uL; Basophil% 0.4 % (0-1); Eosinophil# 0.11 X10^3/uL; Eosinophils% 1.2 % (0-5); Hematocrit 47.6 % (40-54); Hemoglobin 15.3 g/dL (13.0-16.5); Lymphocyte # 1.72 X10^3/ul (0.83-4.51); Lymphocyte % 18.3 % (19-41); Mean Corp Hgb Conc 32.1 g/dL (32-36); Mean Corpuscular Hgb 28.9 pg (27.0-32.0); Mean Corpuscular Volume 89.8 fL (80-94); Mean Platelet Vol. 12.5 fl (6.2-12.0); Monocyte# 0.88 X10^3/uL; Monocyte% 9.3 % (0-10); NRBC Flagged by Analyzer 0 % (0-5); Neutrophil # 6.64 X10^3/uL (2.7-7.7); Neutrophil % 70.5 % (47-70); Platelet Count 158 K/mm3 (150-450); RBC Distribution Width CV 14.3 % (11.6-14.6); RBC Distribution Width SD 46.7 fl (35.1-43.9); White Blood Count 9.4 K/mm3 (4.4-11.0)
[2021-05-19 16:21] LABS: Bacteria 0 SEEN /hpf (None Seen); Mucous, Urine 0 SEEN /hpf (<or=2+); Red Blood Cells-Urine 0 SEEN /hpf (0-5); Squamous Epithelial Cells - UA 0 SEEN /hpf (0-5); White Blood Cells 0 SEEN /hpf (0-5)
[2021-05-19 16:23] LABS: ALB/GLOB Ratio 0.9 RATIO (0.9-2.4); AST(SGOT) 25 U/L (15-37); Alanine Aminotransfer ALT/SGPT 44 U/L (16-61); Albumin, Serum 3.7 g/dL (3.2-5.0); Alkaline Phosphatase 156 U/L (45-117); Anion Gap 7 (5-15); BUN 19 mg/dL (7-18); BUN/Creat Ratio 13.8 RATIO (10-20); Calcium,Total 9.2 mg/dL (8.5-10.1); Chloride 106 mmol/L (98-107); Creatinine, Serum 1.38 mg/dL (0.70-1.30); EST Glomerular Filtration Rate 53 mL/min (>60); Est Glom Filt Rate - Afr Amer 65 mL/min (>60); Estimated Creatinine Clearance 46.25 ml/min; Globulin 4.2 g/dL (2.2-4.2); Glucose 182 mg/dL (74-106); Lipase 199 U/L (73-393); Potassium 3.8 mmol/L (3.5-5.1); Protein, Total 7.9 g/dL (6.4-8.2); Sodium Level 139 mmol/L (136-145)
[2021-05-19 16:24] LABS: Color, Urine Straw (Yellow); Glucose, Dipstick Normal (Normal); Ketone-Dipstick Negative (Negative); Leukocyte Esterase-Dipstick Negative /ul (Negative); Nitrite-Dipstick Negative (Negative); Occult Blood-Urine Negative /ul (Negative); Protein-Dipstick Negative (Negative); Urine Bilirubin Dipstick Negative (Negative); Urine Clarity Clear (Clear); Urine Urobilinogen Normal (Normal)
--- NOTE | 2021-05-19 17:42 | CT_ITS ---
STUDY: CT Abdomen And Pelvis W/ Contrast Injection 05/19/2021 5:56 PM REASON FOR EXAM: Male, 75 years old. Abdominal pain Individualized dose optimization techniques were used for this CT. COMPARISON: 03.14.18. TECHNIQUE: CT Abdomen And Pelvis W/ Contrast Injection Oral IV Gastrografin and amp; 100mL [id number] FINDINGS: There are atherosclerotic calcifications of visualized coronary arteries. The visualized portions of the heart are within normal limits. Healed right rib fracture. Normal liver. There are surgical clips in the gallbladder fossa consistent with a prior cholecystectomy. Normal spleen. Normal pancreas. Normal bilateral adrenal glands. No acute findings of the right kidney. There are hypodensities in the left kidney. These are consistent for cysts. No follow up required. Normal visualized stomach. Normal small intestine. There is diverticulosis, with thickening of the colon wall, and pericolonic inflammation changes consistent with acute diverticulitis. The appendix is visualized and appears normal. There are calcifications of the abdominal aorta. This is consistent for atherosclerotic disease. There is no abdominal aortic aneurysm. Normal inferior vena cava. Subcentimeter mesenteric lymph nodes. Normal urinary bladder. There are prostatic calcifications.There is a stable 2.4 cm x 3.6cm elliptical shaped fluid density deep to the anterior abdominal wall in the midline. This most likely represents a postoperative seroma. This is unchanged. There is an umbilical hernia containing fat. There are diffuse degenerative changes of the visualized lumbar spine. IMPRESSION: (NOT LISTED IN ORDER OF SIGNIFICANCE) Acute diverticulitis of the ascending colon. Other findings as above. Electronically Signed: Nghia Massey MD at 18:01 EST , Service support , CT/Abdomen/Pelvis WITH Contrast
[2021-05-19 17:55] VITALS: RESP 16
== END 2021-05-19 18:31 | disposition home or self-care (01) ==
PROVIDERS: Emergency Provider Emergency Medicine; PCP Family Medicine; Visit Provider Emergency Medicine
DX: K57.32 Diverticulitis of large intestine without perforation or abscess without bleeding (principal); J44.9 Chronic obstructive pulmonary disease, unspecified; E11.22 Type 2 diabetes mellitus with diabetic chronic kidney disease; N18.30 Chronic kidney disease, stage 3 unspecified; I25.10 Atherosclerotic heart disease of native coronary artery without angina pectoris; I12.9 Hypertensive chronic kidney disease with stage 1 through stage 4 chronic kidney disease, or unspecified chronic kidney disease; E78.5 Hyperlipidemia, unspecified; E66.9 Obesity, unspecified; Z68.34 Body mass index [BMI] 34.0-34.9, adult; Z95.5 Presence of coronary angioplasty implant and graft; Z79.02 Long term (current) use of antithrombotics/antiplatelets; Z79.82 Long term (current) use of aspirin; Z79.899 Other long term (current) drug therapy; Z86.73 Personal history of transient ischemic attack (TIA), and cerebral infarction without residual deficits; Z87.891 Personal history of nicotine dependence
CPT/HCPCS: 74177; 80053; 81001; 83690; 85025; 99282; J7030; Q9967; A4216; J2405

== ENCOUNTER 2021-06-10 14:35 | Emergency (ER) | payer MEDICARE, OTHER, SELFPAY ==
[2018-08-03 13:04] VITALS: BMI 19.8
[2021-06-10 14:36] VITALS: BP 179/86; PULSE 71; RESP 18; TEMP 36.1; O2SAT 98; BMI 34.0
--- NOTE | 2021-06-10 15:19 | EKG12_ITS ---
Test Reason : CP Blood Pressure : / mmHG Vent. Rate : 058 BPM Atrial Rate : 058 BPM P-R Int : 000 ms QRS Dur : 090 ms QT Int : 426 ms P-R-T Axes : 000 066 067 degrees QTc Int : 418 ms Sinus rhythm Abnormal ECG Confirmed by NAOMIE PALOMO, PARVEZ ([id number]), publishing editor VERONICA SCOTT ([id number]) on 06/11/2021 9:40:25 AM Referred By: JIE Confirmed By:PARVEZ AKBAR MD
--- NOTE | 2021-06-10 15:21 | EX.ED.DYSGE1 ---
HPI History of Present Illness Chief Complaint: Ear Problem Detail of Chief Complaint: Ear pain with bleeding and intermittent chest pain Informant: patient Onset/Context/Timing Onset: Hours (Ear pain was approximately a couple hours prior to presentation.) and Days (The chest pain has been intermittent for several days to weeks) Timing: Continuous and Intermittent (5 to 10 minutes in duration) Quality: Sharp Location: Left pectoral region Current Severity: Gone Maximum Severity: Moderate Worsened by: Nothing Relieved by: Nothing Associated Symptoms Associated Symptoms: Mild shortness of breath Narrative Narrative: Patient is an elderly male with history of coronary disease and placement of 6 stents who presents because of ear pain followed by bleeding and discharge from his ear. As I was asking questions regarding upper respiratory symptoms he informed he has had chest pain for several days if not weeks left pectoral area lasting 5 to 15 minutes that describes a sharp. Today's was associated with shortness of breath. Does have history of coronary disease. He denies radiation. He denies orthopnea or PND. He denies pedal edema. He presently has no chest pain. He denies fever, chills night sweats. He denies headache. Denies visual, ocular symptoms. He does report the ear pain followed by drainage and bleeding from the right side. He denies using a Q-tip. He feels his ear this stopped because of decreased hearing. Prior similar symptoms: No (With regards to the ear pain) Recent Illness/Hospitalization: [facility] Medical History (Updated 06/10/21 @ 19:[address] Rasheed Canela MD) Atherosclerotic heart disease [place] coronary artery w/angina pectoris 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, stage 3 COPD (chronic obstructive pulmonary disease) Essential hypertension Hyperlipidemia Obesity Obstructive sleep apnea TIA (transient ischemic attack) Type 2 diabetes mellitus without complications Home Medications aspirin 81 mg PO DAILY@0800 01/21/17 [History Last Taken 12/19/19] fluoxetine 40 mg capsule 40 mg PO DAILY 90 Days #90 cap 09/21/18 [History Last Taken 12/19/19] mirtazapine 15 mg tablet 15 mg PO QHS tab 09/21/18 [History Last Taken 12/19/19] cyanocobalamin (vitamin B-12) 1,000 mcg PO DAILY #0 06/01/19 [History Last Taken 12/19/19] ergocalciferol (vitamin D2) 50 mcg PO DAILY #0 06/01/19 [History Last Taken 12/19/19] magnesium oxide 400 mg (241.3 mg magnesium) tablet 400 mg PO DAILY tab 12/05/19 [History Last Taken 12/19/19] pantoprazole 40 mg PO DAILY 12/20/19 [History Last Taken 12/19/19] acetaminophen 650 mg PO Q6H PRN PRN tab 01/03/20 [Rx Last Taken Unknown] amlodipine 10 mg tablet 5 mg PO DAILY tab 01/09/20 [History Last Taken Unknown] clopidogrel 75 mg tablet See Rx Instructions .ROUTE .COMPLEX #90 tablet 07/29/20 [Rx Last Taken Unknown] glimepiride 2 mg tablet 2 mg PO BID tablet 08/12/20 [History Last Taken Unknown] potassium chloride 20 mEq tablet,extended release(part/cryst) 40 meq PO BID #360 tab 09/02/20 [Rx Last Taken Unknown] spironolactone 25 mg tablet 25 mg PO DAILY #90 tab 11/28/20 [Rx Last Taken Unknown] atorvastatin 40 mg tablet 40 mg PO QHS #90 tab 01/07/21 [Rx Last Taken Unknown] furosemide 40 mg tablet 80 mg PO DAILY #180 tab 01/20/21 [Rx Last Taken Unknown] isosorbide mononitrate 60 mg tablet,extended release 24 hr 60 mg PO BID #180 tab 02/17/21 [Rx Last Taken Unknown] nitroglycerin 0.4 mg sublingual tablet 0.4 mg SUBLINGUAL Q5-15M PRN #25 tab 02/20/21 [Rx Last Taken Unknown] metoprolol tartrate 25 mg tablet See Rx Instructions .ROUTE .COMPLEX #180 tab 03/31/21 [Rx Last Taken Unknown] metolazone 2.5 mg tablet 2.5 mg PO Q OTHER DAY 04/09/21 [History Last Taken Unknown] ciprofloxacin HCl 500 mg PO BID #20 tablet 05/19/21 [Rx Last Taken Unknown] metronidazole 500 mg PO Q6H #40 tab 05/19/21 [Rx Last Taken Unknown] amoxicillin-pot clavulanate 875 mg PO Q12H #20 tablet 06/10/21 [Rx Last Taken Unknown] Allergy/AdvReac Type Severity Reaction Status Date / Time No Known Allergies Allergy Verified 06/10/21 14:36 Surgical History History of coronary artery stent placement (08/13/17) History of herniorrhaphy History of percutaneous transluminal coronary angioplasty (08/18/18) History of prostatectomy History of tonsillectomy Hx of cholecystectomy Social History (Updated 06/10/21 @ 15:[address] Rasheed Canela MD) household members: none Smoking Status: Former smoker quit date: 05/03/98 pack-years: 50 how long ago did patient quit smokin years ago alcohol intake: never substance use type: does not use caffeine: Yes Type: coffee and tea Number of servings: 6 ROS ROS ED Constitutional Constitutional ED: Denies chills, fever(s), subjective, sweats or weight loss Eyes Eyes: Denies blurry vision, change in vision or diplopia ENT ENT ED: Denies ear pain, rhinorrhea or sore throat Cardiovascular Cardiovascular: Reports chest pain; Denies orthopnea, palpitations or racing heartbeat Respiratory/Chest Respiratory/Chest: Reports dyspnea; Denies cough, dyspnea on exertion, orthopnea or sputum Gastrointestinal Gastrointestinal: Denies abdominal pain, constipation, diarrhea, nausea or vomiting Genitourinary Genitourinary ED: Denies dysuria, hematuria or urinary frequency Musculoskeletal Musculoskeletal: Denies arthralgias, back pain, myalgias or neck pain Integumentary Denies abscess or rash Neurologic Neurologic: Denies headache(s) or weakness Endocrine Endocrinology: Denies polydipsia, polyphagia or polyuria EXAM Physical Exam Const Vital Signs: 06/10/21 14:36 06/10/21 15:44 06/10/21 15:46 Temperature 97 F L Temperature Source Temporal Pulse Rate 71 Respiratory Rate 18 Respiratory Effort Normal Non-Labored Blood Pressure 179/86 H Blood Pressure Mean 117 Pulse Ox 98 Oxygen Delivery Method Room Air Room Air 06/10/21 16:30 06/10/21 17:02 06/10/21 18:02 Temperature Temperature Source Pulse Rate 58 L 54 L 53 L Respiratory Rate 22 H 18 18 Respiratory Effort Blood Pressure 149/83 H 125/79 H 111/74 Blood Pressure Mean 105 94 86 Pulse Ox 95 95 95 Oxygen Delivery Method Room Air Room Air Room Air 06/10/21 19:13 Temperature Temperature Source Pulse Rate 57 L Respiratory Rate 20 H Respiratory Effort Blood Pressure 121/75 H Blood Pressure Mean 90 Pulse Ox 93 Oxygen Delivery Method Room Air Positive well nourished, well developed and obese General Appearance ED: well developed and NAD; Negative for cyanotic, diaphoretic or pallor Nutritional Appearance: obese HEENT Reports moist mucous membranes and other There is pain with pushing on the tragus. TM appears ruptured with bloody purulent drainage noted. Negative for trauma or tenderness Eyes PERRL and EOMs intact bilaterally General Eye ED: Negative for pale conjunctiva or scleral icterus Neck no lymphadenopathy, supple and no JVD Chest Wall inspection of chest normal and palpation of chest normal Resp normal respiratory effort and clear to auscultation bilaterally Cardio regular rate, regular rhythm, S1 normal heart sound, S2 normal heart sound and no murmurs GI normal to inspection, nondistended, normoactive bowel sounds, non-tender and non-distended Palpation: soft Back/Spine no CVA tenderness Thoracic Spine / Upper Back: Negative for thoracic spinal tenderness or paraspinal muscle tenderness Extremity normal to inspection General Extremety ED: Yes edema; Negative for tenderness General Extremity: edema Neuro oriented x3, CN's II-XII intact bilaterally and no sensory deficits noted Sensorium / Orientation: alert Motor Exam: strength 5/5 throughout Psych mental status grossly normal Skin no rashes or lesions noted and no wounds General Skin Exam: Negative for jaundice or pallor MDM MDM MDM Narrative Medical decision making narrative: Patient presents with chest pain that is very atypical and is been intermittent and since he has multiple risk factors including diabetes and known coronary disease troponin was obtained as well as EKG. Patient's ear symptoms are due to infection with rupture. Will treat with antibiotics. Lab Data Attestation: I reviewed the patient's lab results. Labs: Laboratory Results - last 24 hr 06/10/21 06/10/21 06/10/21 15:35 15:35 17:36 WBC 6.7 RBC 5.17 Hgb 15.5 Hct 46.3 MCV 89.6 MCH 30.0 MCHC 33.5 RDW Std Deviation 45.9 H RDW Coeff of [place] 14.1 Plt Count 146 L MPV 12.7 H Immature Gran % (Auto) 0.500 Neut % (Auto) 73.8 H Lymph % (Auto) 15.0 L [place] % (Auto) 8.7 Eos % (Auto) 1.7 Baso % (Auto) 0.3 Absolute Neuts (auto) 4.9 Absolute Lymphs (auto) 1.00 Nucleated RBC % 0 Sodium 139 Potassium 5.6 H Chloride 107 Carbon Dioxide 28.0 Anion Gap 4 L BUN 17 Creatinine 1.34 H Estim Creat Clear Calc 47.63 Est GFR (MDRD) Af Amer 67 Est GFR (MDRD) Non-Af 55 L BUN/Creatinine Ratio 12.7 Glucose 150 H Calcium 8.7 Troponin I High Sens 6 10 Since patient's initial troponin was less than 8 and delta is less than 7 patient has been ruled out with a negative predictive value of 100% based on high-sensitivity troponin algorithm sheet. Therefore he will be discharged to home. EKG Initial EKG: Attestation: I personally reviewed and interpreted this EKG as follows: Interpretation: Sinus Bradycardia (Ventricular rate 58. MI interval is approximately 190 ms. QRS duration 90 ms. QT duration 426 ms. [place] is normal. Disagree with computer reading of junctional rhythm.) Follow-up EKG: Attestation: I personally reviewed and interpreted this EKG as follows: Interpretation: Sinus Bradycardia (Ventricular rate is 53. Other than sinus bradycardia the EKG is normal. MI interval is 182 ms. Cures duration 86 ms. QT duration 0.60 ms. [place] is normal.) Discharge Plan Triage Chief Complaint: Ear Problem Other Complaint: Chest Pain ED Provider: Rasheed Canela Dx/Rx/DC Orders Clinical Impression: Rupture of right tympanic membrane due to otitis media, Intermittent left-sided chest pain Instructions: ED Chest Pain, Noncardiac, ED PERFORATED TM Infected [Adult] Prescriptions: New amoxicillin-pot clavulanate [amoxicillin-pot clavulanate] 875 MG tablet 875 mg PO Q12H Qty: 20 RF: 0 No Action fluoxetine 40 mg capsule 40 mg PO DAILY 90 Days Qty: 90 RF: 0 magnesium oxide 400 mg (241.3 mg magnesium) tablet 400 mg PO DAILY RF: 0 amlodipine 10 mg tablet 5 mg PO DAILY RF: 0 nitroglycerin 0.4 mg tablet, sublingual 0.4 mg SUBLINGUAL Q5-15M PRN (Reason: CHEST PAIN) Qty: 25 RF: 3 aspirin 81 MG tablet 81 mg PO DAILY@0800 RF: 0 cyanocobalamin (vitamin B-12) 1,000 MCG capsule 1,000 mcg PO DAILY Qty: 0 RF: 0 ergocalciferol (vitamin D2) 50 MCG capsule 50 mcg PO DAILY Qty: 0 RF: 0 pantoprazole 40 MG tablet 40 mg PO DAILY RF: 0 glimepiride 2 mg tablet 2 mg PO BID RF: 0 acetaminophen 325 MG tablet 650 mg PO Q6H PRN PRN (Reason: Pain -02/09) RF: 0 metronidazole [metronidazole] 500 MG tablet 500 mg PO Q6H Qty: 40 RF: 0 ciprofloxacin HCl [ciprofloxacin HCl] 500 MG tablet 500 mg PO BID Qty: 20 RF: 0 mirtazapine [Remeron] 15 mg tablet 15 mg PO QHS RF: 0 clopidogrel 75 mg tablet See Rx Instructions .ROUTE .COMPLEX Qty: 90 RF: 3 potassium chloride 20 mEq tablet,ER particles/crystals 40 meq PO BID Qty: 360 RF: 3 spironolactone 25 mg tablet 25 mg PO DAILY Qty: 90 RF: 3 atorvastatin 40 mg tablet 40 mg PO QHS Qty: 90 RF: 3 furosemide 40 mg tablet 80 mg PO DAILY Qty: 180 RF: 3 isosorbide mononitrate 60 mg tablet extended release 24 hr 60 mg PO BID Qty: 180 RF: 3 metoprolol tartrate 25 mg tablet See Rx Instructions .ROUTE .COMPLEX Qty: 180 RF: 3 metolazone 2.5 mg tablet 2.5 mg PO Q OTHER DAY RF: 0 Primary Care Provider: Victor M Luke Referrals: Victor M Luke DO [Primary Care Provider] - 1-2 Weeks Disposition Disposition: Home, Self Care
--- NOTE | 2021-06-10 15:30 | EKG12_ITS ---
Test Reason : REPEAT CP Blood Pressure : / mmHG Vent. Rate : 053 BPM Atrial Rate : 053 BPM P-R Int : 182 ms QRS Dur : 086 ms QT Int : 460 ms P-R-T Axes : 060 076 068 degrees QTc Int : 431 ms Sinus bradycardia Otherwise normal ECG Confirmed by NAOMIE PALOMO, PARVEZ ([id number]), editorial writer VERONICA SCOTT ([id number]) on 06/11/2021 9:47:34 AM Referred By: JIE Confirmed By:PARVEZ AKBAR MD
[2021-06-10] MEDS: Aspirin 81 MG TAB.CHEW 324 MG PO (15:41)
[2021-06-10 15:51] LABS: Absolute Neutrophil Count 4.9 X10^3/uL (2.0-7.7); Basophil# 0.02 X10^3/uL; Basophil% 0.3 % (0-1); Eosinophil# 0.11 X10^3/uL; Eosinophils% 1.7 % (0-5); Hematocrit 46.3 % (40-54); Hemoglobin 15.5 g/dL (13.0-16.5); Mean Corp Hgb Conc 33.5 g/dL (32-36); Mean Corpuscular Volume 89.6 fL (80-94); Mean Platelet Vol. 12.7 fl (6.2-12.0); Monocyte# 0.58 X10^3/uL; Monocyte% 8.7 % (0-10); NRBC Flagged by Analyzer 0 % (0-5); Neutrophil # 4.92 X10^3/uL (2.7-7.7); Neutrophil % 73.8 % (47-70); Platelet Count 146 K/mm3 (150-450); RBC Distribution Width CV 14.1 % (11.6-14.6); RBC Distribution Width SD 45.9 fl (35.1-43.9); Red Blood Count 5.17 M/mm3 (4.6-6.2); White Blood Count 6.7 K/mm3 (4.4-11.0)
[2021-06-10 16:16] LABS: Anion Gap 4 (5-15); BUN 17 mg/dL (7-18); BUN/Creat Ratio 12.7 RATIO (10-20); Calcium,Total 8.7 mg/dL (8.5-10.1); Chloride 107 mmol/L (98-107); Creatinine, Serum 1.34 mg/dL (0.70-1.30); EST Glomerular Filtration Rate 55 mL/min (>60); Est Glom Filt Rate - Afr Amer 67 mL/min (>60); Estimated Creatinine Clearance 47.63 ml/min; Glucose 150 mg/dL (74-106); Potassium 5.6 mmol/L (3.5-5.1); Sodium Level 139 mmol/L (136-145); Troponin-I HS 6 pg/mL (3.0-78.0)
[2021-06-10 16:30] VITALS: BP 149/83; PULSE 58; RESP 22; O2SAT 95
[2021-06-10 17:02] VITALS: BP 125/79; PULSE 54; RESP 18; O2SAT 95
[2021-06-10 18:02] VITALS: BP 111/74; PULSE 53; RESP 18; O2SAT 95
[2021-06-10 18:03] LABS: Troponin-I HS 10 pg/mL (3.0-78.0)
[2021-06-10 19:13] VITALS: BP 121/75; PULSE 57; RESP 20; O2SAT 93
[2021-06-10] MEDS: AMOXICILLIN 500 MG CAPSULE PO (19:37)
[2021-06-10 19:38] VITALS: BP 121/75; PULSE 57; RESP 14; O2SAT 96
== END 2021-06-10 19:42 | disposition home or self-care (01) ==
PROVIDERS: Emergency Provider Emergency Medicine; PCP Family Medicine; Visit Provider Emergency Medicine
DX: R07.9 Chest pain, unspecified (principal); J44.9 Chronic obstructive pulmonary disease, unspecified; E11.22 Type 2 diabetes mellitus with diabetic chronic kidney disease; N18.30 Chronic kidney disease, stage 3 unspecified; I25.10 Atherosclerotic heart disease of native coronary artery without angina pectoris; H72.91 Unspecified perforation of tympanic membrane, right ear; E78.5 Hyperlipidemia, unspecified; I12.9 Hypertensive chronic kidney disease with stage 1 through stage 4 chronic kidney disease, or unspecified chronic kidney disease; Z87.891 Personal history of nicotine dependence; H91.90 Unspecified hearing loss, unspecified ear; H92.09 Otalgia, unspecified ear; Z86.73 Personal history of transient ischemic attack (TIA), and cerebral infarction without residual deficits
CPT/HCPCS: 80048; 84484; 85025; 93005; 99285; A4216

== ENCOUNTER 2021-08-15 07:04 | Outpatient (CLI) | payer MEDICARE, OTHER, SELFPAY ==
[2018-08-03 13:04] VITALS: BMI 19.8
--- NOTE | 2021-08-15 07:08 | CDU_ITS ---
Reason For Study: Dizziness, CAD Rt. Velocities/BP Lt. Velocities/BP Prox CCA 102.1/17.3 cm/sec. Prox CCA 78.4/13.5 cm/sec. Mid CCA 100.8/16 cm/sec. Mid CCA 85/16.8 cm/sec. Dist CCA 76/13.4 cm/sec. Dist CCA 76.2/13.5 cm/sec. Prox ICA 66.9/14.7 cm/sec. Prox ICA 81.4/17.6 cm/sec. Mid ICA 69.5/13.4 cm/sec. Mid ICA 58.8/17.9 cm/sec. Dist ICA 73.4/16 cm/sec. Dist ICA 90/22.5 cm/sec. Rt. ICA/CCA = 0.73. Lt. ICA/CCA = 1.15. Prox ECA 100.8/9.5 cm/sec. Prox ECA 108.4/11.4 cm/sec. Rt. Vert. 41.9/7.8 cm/sec. Lt. Vert. 44.3 cm/sec. Right Extracranial There is intimal thickening but no significant atherosclerotic plaque noted in the right common carotid artery. There is heterogeneous, irregular atherosclerotic plaque noted in the right internal carotid artery. There is intimal thickening but no significant atherosclerotic plaque noted in the right external carotid artery. Antegrade flow is noted in the right vertebral artery. Left Extracranial There is intimal thickening but no significant atherosclerotic plaque noted in the left common carotid artery. There is heterogeneous, irregular atherosclerotic plaque noted in the left internal carotid artery. The left internal carotid artery is very tortuous. There is intimal thickening but no significant atherosclerotic plaque noted in the left external carotid artery. Antegrade flow is noted in the left vertebral artery. Procedure Carotid Duplex [id number]. This is a Carotid Duplex examination using B-mode, color flow and specral Doppler. Exam performed in department. VL/Carotid Duplex Ultrasound Interpretation Summary Minimal calcific plaque at the proximal right internal carotid artery with less than 50% stenosis Less than 50% stenosis right external carotid artery Irregular calcific plaque of the proximal left internal carotid artery with les s than 50% stenosis Less than 50% stenosis left external carotid artery Patent and antegrade vertebral arteries bilaterally Ordering Physician: Luz Elena Mckeon Referring Physician: Victor M Luke Performed By: Jacque Fatima RVT
--- NOTE | 2021-08-15 09:39 | STRESSREP ---
Stress Test Report Date: 08-15-2021 Procedure: Pharmacologic stress nuclear imaging study Indications: Chest pain; CAD; PCI Consent: Per the patient Procedure: The patient underwent pharmacologic (Regadenoson 0.4mg ) evaluation with a peak heart rate of 93 beats per minute (64%predicted maximal heart rate) and a peak blood pressure of 150/72 mmHg. The baseline ECG demonstrated sinus bradycardia; nonspecific T wave abnormality. The peak pharmacologic ECG demonstrated no obvious ECG changes. [There were no cardiac dysrhythmias pretest, during pharmacologic infusion, or recovery]. The patient noted mild chest discomfort in recovery. The examination was discontinued secondary to completion of protocol. Impression: 1. Pharmacologic (Regadenoson) evaluation 2. Peak pharmacologic ECG with no obvious ECG changes. 3. [There were no cardiac dysrhythmias pretest, during pharmacologic infusion, or recovery]. 4. Nuclear images pending Myocardial perfusion imaging study: Technique: The patient was injected with [] millicuries of technetium 99m Cardiolite and subsequently rest SPECT Cardiolite nuclear imaging was obtained in the horizontal long, vertical long, and short axis views. The patient underwent pharmacologic (Regadenoson) evaluation with a peak heart rate of 93 beats per minute (64% percent predicted maximal heart rate) and a peak blood pressure of 150/72 mmHg. The patient was injected with [] millicuries of technetium 99m Cardiolite and subsequently stress SPECT Cardiolite nuclear imaging was obtained in the horizontal long, vertical long, and short axis views. A gated Cardiolite study at peak stress was obtained. Interpretation: Rest and stress SPECT Cardiolite nuclear imaging status post realignment, normalization, and attenuation correction demonstrate []. [There is end systolic thickening and brightening]. [The gated Cardiolite study demonstrates myocardial thickening and inward wall motion]. The reported LVEF is []%. Impression: 1. [Rest and stress SPECT Cardiolite nuclear imaging demonstrate relative uniform tracer uptake and myocardial perfusion appearing within normal limits]. 2. The gated Cardiolite study reports an LVEF of []%. This note was generated with [employer] software. It may contain incorrect words, spelling, and punctuation that were not noted in checking the note before signing.
== END 2021-08-15 23:59 | disposition home or self-care (01) ==
LOC: CVS 07:06
PROVIDERS: PCP Family Medicine; Referring Provider Nurse Practitioner Gerontology; Visit Provider Nurse Practitioner Gerontology
DX: R42 Dizziness and giddiness (principal); I25.119 Atherosclerotic heart disease of native coronary artery with unspecified angina pectoris; R07.9 Chest pain, unspecified
CPT/HCPCS: 78452; 93017; 93880; A9500; A4216; J2785

== ENCOUNTER → 2021-09-16 | Outpatient (CLI) | payer MEDICARE, OTHER, SELFPAY ==
[2018-08-03 13:04] VITALS: BMI 19.8
--- NOTE | 2021-09-16 12:05 | RAD_ITS ---
STUDY: X-RAY CHEST REASON FOR EXAM: Male, 76 years old. Dyspnea TECHNIQUE: PA and lateral views of the chest. COMPARISON: 11/17/2020 FINDINGS: The lungs are clear and expanded. There is no demonstrated pleural abnormality. Normal size heart. Normal mediastinum and melanie. Normal visualized pulmonary arteries. Normal visualized aortic arch and descending thoracic aorta. Normal visualized thoracic spine. Normal visualized ribs, clavicles, and shoulders. There is no demonstrated abnormality of the visualized soft tissue structures of the upper abdomen. RAD/Chest PA and Lateral IMPRESSION: Normal x-ray examination of the chest. Electronically Signed: Kush Chapa MD at 16:56 EDT ,
[2021-09-16 12:59] LABS: Absolute Lymphocyte Count 1.24 X10^3/uL (0.83-4.51); Absolute Neutrophil Count 4.4 X10^3/uL (2.0-7.7); Basophil# 0.03 X10^3/uL; Basophil% 0.5 % (0-1); Eosinophil# 0.11 X10^3/uL; Eosinophils% 1.7 % (0-5); Hematocrit 43.6 % (40-54); Hemoglobin 14.1 g/dL (13.0-16.5); Lymphocyte # 1.24 X10^3/ul (0.83-4.51); Lymphocyte % 19.3 % (19-41); Mean Corp Hgb Conc 32.3 g/dL (32-36); Mean Corpuscular Hgb 29.1 pg (27.0-32.0); Mean Corpuscular Volume 90.1 fL (80-94); Mean Platelet Vol. 12.7 fl (6.2-12.0); Monocyte# 0.64 X10^3/uL; NRBC Flagged by Analyzer 0 % (0-5); Neutrophil # 4.37 X10^3/uL (2.7-7.7); Platelet Count 133 K/mm3 (150-450); RBC Distribution Width CV 13.9 % (11.6-14.6); RBC Distribution Width SD 46.2 fl (35.1-43.9); Red Blood Count 4.84 M/mm3 (4.6-6.2); White Blood Count 6.4 K/mm3 (4.4-11.0)
[2021-09-16 13:22] LABS: BNP,B-Type NATRIURETIC PEPTIDE 80.9 pg/mL (0-100)
[2021-09-16 13:23] LABS: Anion Gap 5 (5-15); BUN 17 mg/dL (7-18); BUN/Creat Ratio 13.7 RATIO (10-20); Chloride 107 mmol/L (98-107); Creatinine, Serum 1.24 mg/dL (0.70-1.30); EST Glomerular Filtration Rate 60 mL/min (>60); Est Glom Filt Rate - Afr Amer 73 mL/min (>60); Glucose 134 mg/dL (74-106); Potassium 4.3 mmol/L (3.5-5.1); Sodium Level 139 mmol/L (136-145)
== END | disposition home or self-care (01) ==
PROVIDERS: PCP Family Medicine; Referring Provider Nurse Practitioner Gerontology; Visit Provider Nurse Practitioner Gerontology
DX: R06.00 Dyspnea, unspecified (principal)
CPT/HCPCS: 36415; 71046; 80048; 83880; 85025

== ENCOUNTER → 2021-10-28 | Outpatient (CLI) | payer MEDICARE, OTHER, SELFPAY ==
[2018-08-03 13:04] VITALS: BMI 19.8
[2021-10-28 12:48] LABS: Anion Gap 8 (5-15); BUN 19 mg/dL (7-18); BUN/Creat Ratio 15.6 RATIO (10-20); Calcium,Total 8.9 mg/dL (8.5-10.1); Chloride 105 mmol/L (98-107); Creatinine, Serum 1.22 mg/dL (0.70-1.30); EST Glomerular Filtration Rate 61 mL/min (>60); Est Glom Filt Rate - Afr Amer 74 mL/min (>60); Glucose 246 mg/dL (74-106); Potassium 4.2 mmol/L (3.5-5.1); Sodium Level 137 mmol/L (136-145)
[2021-10-28 12:57] LABS: Hemoglobin A1c 7.7 % (3.8-5.6)
== END | disposition home or self-care (01) ==
LOC: MTLAB 10:30
PROVIDERS: PCP Family Medicine; Referring Provider Family Medicine; Visit Provider Family Medicine
DX: N18.31 Chronic kidney disease, stage 3a (principal); E11.9 Type 2 diabetes mellitus without complications
CPT/HCPCS: 36415; 80048; 83036

== ENCOUNTER 2021-11-16 12:55 | Emergency (ER) | payer MEDICARE, OTHER, SELFPAY ==
[2018-08-03 13:04] VITALS: BMI 19.8
[2021-11-16] VITALS (7 sets, daily range): BP systolic 117–193; BP diastolic 77–87; PULSE 47–73; RESP 16–23; TEMP 36.4; O2SAT 92–97; BMI 33.2
--- NOTE | 2021-11-16 13:12 | RAD_ITS ---
INDICATION: chest pain EXAMINATION/TECHNIQUE: X-RAY - XR Chest 1 View COMPARISON: 11/17/2020 FINDINGS: LIFE-SUPPORT AND LINES: 1. None HEART AND VESSELS: The cardiac silhouette, pulmonary vasculature have normal appearance. No evidence of congestive failure. LUNGS AND PLEURAL SPACES: No focal infiltrate or consolidation. Diffuse pleural thickening along the RIGHT chest wall. No pulmonary mass is noted. MEDIASTINUM AND HILAR REGIONS: No masses adenopathy noted. No areas of calcification. Visualized upper airway is normal in position. BONY ELEMENTS: Postoperative changes in the cervical spine, postop changes in the LEFT shoulder. RAD/Chest 1 View (Portable) IMPRESSION: 1. Stable exam. 2. Diffuse pleural thickening again noted along the RIGHT chest wall. 3. No acute infiltrate, congestive failure, consolidation or effusion. Electronically Signed: Kush Salmon MD at 15:28 EDT ,
--- NOTE | 2021-11-16 13:12 | EKG12_ITS ---
Test Reason : CHEST PRESSURE Blood Pressure : / mmHG Vent. Rate : 052 BPM Atrial Rate : 052 BPM P-R Int : 178 ms QRS Dur : 090 ms QT Int : 432 ms P-R-T Axes : 063 064 046 degrees QTc Int : 401 ms Sinus bradycardia with occasional Premature ventricular complexes Otherwise normal ECG Confirmed by NAOMIE PALOMO, PARVEZ ([id number]), editor newspaper MARÍA AMBROSIO ([id number]) on 11/17/2021 11:11:57 AM Referred By: CARSON Confirmed By:PARVEZ AKBAR MD
--- NOTE | 2021-11-16 13:21 | ED.VIS.CHEST ---
HPI History of Present Illness Chief Complaint: Chest Pain Narrative Narrative: 76-year-old male presenting with chest pain. He states it felt like a dull ache with 3?4 level of pain. It did not radiate. Patient states he felt a little woozy and a little bit lightheaded. He also admits to feeling a little bit short of breath. The symptoms are all improved except for a little bit of nausea. Patient denies fever, chills, cough. He denies headache, body aches, fatigue. Patient states he had a cardiac catheterization in January 2020 which showed less than 30% CAD of the LAD and less than 30% of the RCA. His stent was patent. He had a stress test in August of this year which was normal. He follows with Dr. Palacios. History of hypertension, hyperlipidemia, diabetes, COPD, CKD, TIA, CHF. He is a former smoker. [facility] Medical History Atherosclerotic heart disease [place] coronary artery w/angina pectoris 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, stage 3 COPD (chronic obstructive pulmonary disease) Essential hypertension Hyperlipidemia Obesity Obstructive sleep apnea TIA (transient ischemic attack) Type 2 diabetes mellitus without complications Home Medications aspirin 81 mg tablet,delayed release 81 mg PO DAILY@0800 health maintenance 01/21/17 [History Last Taken 12/19/19] mirtazapine 15 mg tablet (Remeron) 15 mg PO QHS sleep 09/21/18 [History Last Taken 12/19/19] cyanocobalamin (vitamin B-12) 1,000 mcg capsule 1,000 mcg PO DAILY vitamin ##0 06/01/19 [History Last Taken 12/19/19] pantoprazole 40 mg tablet,delayed release 40 mg PO DAILY GERD 12/20/19 [History Last Taken 12/19/19] acetaminophen 325 mg tablet 650 mg PO Q6H PRN PRN Pain 1-02/0901/03/20 [Rx Last Taken Unknown] spironolactone 25 mg tablet 25 mg PO DAILY fluid #90 tabs 11/28/20 [Rx Last Taken Unknown] furosemide 40 mg tablet 80 mg PO DAILY diuretic #180 tabs 01/20/21 [Rx Last Taken Unknown] isosorbide mononitrate 60 mg tablet,extended release 24 hr 60 mg PO BID heart/BP #180 tabs 02/17/21 [Rx Last Taken Unknown] amlodipine 5 mg tablet 5 mg PO BID bp #60 tabs 08/01/21 [Rx Last Taken Unknown] guaifenesin 600 mg tablet, extended release 12 hr (Mucinex) 600 mg PO BID 08/01/21 [History Last Taken Unknown] magnesium oxide 400 mg (241.3 mg magnesium) tablet 800 mg PO DAILY SUPPLEMENT 08/01/21 [History Last Taken Unknown] potassium chloride 20 mEq tablet,extended release(part/cryst) 60 meq PO BID supplement 08/01/21 [History Last Taken Unknown] clopidogrel 75 mg tablet See Rx Instructions .Route .COMPLEX #90 tabs 08/25/21 [Rx Last Taken Unknown] cetirizine 10 mg tablet 10 mg PO DAILY PRN Allergic Reaction 09/16/21 [History Last Taken Unknown] cholecalciferol (vitamin D3) 25 mcg (1,000 unit) tablet 25 mcg PO DAILY 09/16/21 [History Last Taken Unknown] fluoxetine 40 mg capsule 80 mg PO DAILY DEPRESSION 90 days #180 caps 09/16/21 [History Last Taken Unknown] glimepiride 4 mg tablet 4 mg PO BID 09/16/21 [History Last Taken Unknown] metolazone 2.5 mg tablet 2.5 mg PO Q OTHER DAY PRN Edema 09/16/21 [History Last Taken Unknown] metoprolol tartrate 25 mg tablet 12.5 mg PO BID 09/16/21 [History Last Taken Unknown] nitroglycerin 0.4 mg sublingual tablet 0.4 mg sublingual Q5-15M PRN CHEST PAIN #25 tabs 09/16/21 [Rx Last Taken Unknown] atorvastatin 40 mg tablet 40 mg PO QHS CHOLESTEROL #90 tabs 10/31/21 [Rx Last Taken Unknown] Allergy/AdvReac Type Severity Reaction Status Date / Time No Known Allergies Allergy Verified 11/16/21 13:15 Surgical History History of coronary artery stent placement (08/13/17) History of herniorrhaphy History of percutaneous transluminal coronary angioplasty (08/18/18) History of prostatectomy History of tonsillectomy History of tympanostomy tube placement Hx of cholecystectomy Social History household members: none Smoking Status: Former smoker quit date: 05/03/98 pack-years: 50 how long ago did patient quit smokin years ago alcohol intake: never substance use type: does not use caffeine: Yes Type: coffee and tea Number of servings: 6 ROS ROS ED Constitutional Constitutional ED: Denies chills, fever(s) or sweats Eyes Eyes: Denies blurry vision or change in vision ENT ENT ED: Denies ear pain or sore throat Cardiovascular Cardiovascular: Reports chest pain and other Details: Lightheadedness ; Denies palpitations or racing heartbeat Respiratory/Chest Respiratory/Chest: Reports dyspnea; Denies cough or sputum Gastrointestinal Gastrointestinal: Reports nausea; Denies abdominal pain, constipation, diarrhea or vomiting Genitourinary Genitourinary ED: Denies dysuria, hematuria or urinary frequency Musculoskeletal Musculoskeletal: Denies arthralgias, myalgias or neck pain Integumentary Denies abscess, Abrasions or rash Neurologic Neurologic: Denies headache(s), paresthesias or weakness Psychiatric Psychiatric: Denies anxiety, depression, suicidal ideation or suicidal thoughts Endocrine Endocrinology: Denies polydipsia or polyuria EXAM Physical Exam Const Vital Signs: 11/16/21 12:55 11/16/21 13:06 11/16/21 13:06 Temperature 97.6 F L Temperature Source Temporal Pulse Rate 73 58 L Respiratory Rate 18 19 H Respiratory Effort Short of Breath Respiratory Pattern Normal Blood Pressure 193/83 H 166/77 H Blood Pressure Mean 119 106 Pulse Ox 97 96 Oxygen Delivery Method Room Air Room Air 11/16/21 13:17 11/16/21 14:13 11/16/21 15:37 Temperature Temperature Source Pulse Rate 47 L 49 L Respiratory Rate 20 H 23 H Respiratory Effort Respiratory Pattern Blood Pressure 121/77 H 123/77 H Blood Pressure Mean 91 92 Pulse Ox 95 92 Oxygen Delivery Method Room Air Room Air Positive obese General Appearance ED: NAD; Negative for pallor Nutritional Appearance: obese HEENT Reports moist mucous membranes normocephalic and atraumatic Eyes General Eye ED: Negative for pale conjunctiva or scleral icterus Chest Wall inspection of chest normal Resp normal respiratory effort and clear to auscultation bilaterally Effort and Inspection: Negative for respiratory distress Auscultation: Negative for rales, rhonchi or wheezes Cardio regular rhythm Rate: bradycardia GI normal to inspection, nondistended, normoactive bowel sounds Neuro oriented x3 and CN's II-XII intact bilaterally Sensorium / Orientation: awake and alert Psych mental status grossly normal Skin no rashes or lesions noted and no wounds General Skin Exam: Negative for jaundice or pallor Heart Score History: Slightly/Non-Suspicious ECG: Normal Age: >/= 65 years Risk Factors: >/= 3 Risk Factors or History of CAD Troponin: </= Normal Limit Score: 4 MDM MDM MDM Narrative Medical decision making narrative: Patient presenting with chest pain. He also has some associated nausea. EKG was obtained on arrival and on my interpretation shows sinus bradycardia with a ventricular rate of 52 bpm without sign of ischemic change or dysrhythmia. Chest x-ray does not show any acute process on my interpretation. The radiologist does agree. CBC is unremarkable. Creatinine slightly elevated at 1.38 but near baseline. High-sensitivity troponin is 7 and his delta troponin is also 7 so there is no significant interval change. He did request some Zofran for nausea and his nausea is improved. Patient counseled on findings and he states that he feels well enough to go home. I do not believe he needs to be hospitalized and I do believe he needs further imaging or blood work. Patient can follow-up with his PCP later this week. He was discharged home in stable condition with return precautions. Impression: 1. Chest pain Lab Data Attestation: I reviewed the patient's lab results. Labs: Laboratory Results - last 24 hr 11/16/21 11/16/21 11/16/21 13:04 13:04 15:35 WBC 7.9 RBC 5.42 Hgb 15.6 Hct 48.4 MCV 89.3 MCH 28.8 MCHC 32.2 RDW Std Deviation 44.5 H RDW Coeff of Adrian 13.8 Plt Count 142 L MPV 12.9 H Immature Gran % (Auto) 0.400 Neut % (Auto) 62.3 Lymph % (Auto) 26.0 Wilkin % (Auto) 9.6 Eos % (Auto) 1.4 Baso % (Auto) 0.3 Absolute Neuts (auto) 5.0 Absolute Lymphs (auto) 2.06 Nucleated RBC % 0 Sodium 137 Potassium 4.4 Chloride 104 Carbon Dioxide 27.0 Anion Gap 6 BUN 16 Creatinine 1.38 H Estim Creat Clear Calc 45.54 Est GFR (MDRD) Af Amer 64 Est GFR (MDRD) Non-Af 53 L BUN/Creatinine Ratio 11.6 Glucose 170 H Calcium 9.2 Troponin I High Sens 7 7 Radiography Diagnostic Testing: Clinical Impression(s) from Imaging Studies Chest X-Ray 11/16/21 13:12 IMPRESSION: 1. Stable exam. 2. Diffuse pleural thickening again noted along the RIGHT chest wall. 3. No acute infiltrate, congestive failure, consolidation or effusion. Electronically Signed: Kush Salmon MD at 15:28 EDT , Discharge Plan Triage Chief Complaint: Chest Pain ED Provider: Pardeep Hall Dx/Rx/DC Orders Prescriptions: No Action fluoxetine 40 mg capsule 80 mg PO DAILY 90 Days Qty: 180 Label Comments: anxiety magnesium oxide 400 mg (241.3 mg magnesium) tablet 800 mg PO DAILY potassium chloride 20 mEq tablet,ER particles/crystals 60 meq PO BID Label Comments: supplement guaifenesin [Mucinex] 600 mg tablet extended release 12hr 600 mg PO BID amlodipine 5 mg tablet 5 mg PO BID Qty: 60 3RF metoprolol tartrate 25 mg tablet 12.5 mg PO BID cetirizine 10 mg tablet 10 mg PO DAILY PRN (Reason: Allergic Reaction) cholecalciferol (vitamin D3) 25 mcg (1,000 unit) tablet 25 mcg PO DAILY glimepiride 4 mg tablet 4 mg PO BID nitroglycerin 0.4 mg tablet, sublingual 0.4 mg SUBLINGUAL Q5-15M PRN (Reason: CHEST PAIN) Qty: 25 3RF Label Comments: chest pain aspirin 81 MG tablet 81 mg PO DAILY@0800 Label Comments: health maintenance cyanocobalamin (vitamin B-12) 1,000 MCG capsule 1,000 mcg PO DAILY Qty: 0 Label Comments: vitamin pantoprazole 40 MG tablet 40 mg PO DAILY acetaminophen 325 MG tablet 650 mg PO Q6H PRN PRN (Reason: Pain 1-02/09) 0RF mirtazapine [Remeron] 15 mg tablet 15 mg PO QHS Label Comments: sleep spironolactone 25 mg tablet 25 mg PO DAILY Qty: 90 3RF Label Comments: fluid furosemide 40 mg tablet 80 mg PO DAILY Qty: 180 3RF Label Comments: Hold if systolic blood pressure less than 120 mmHg isosorbide mononitrate 60 mg tablet extended release 24 hr 60 mg PO BID Qty: 180 3RF clopidogrel 75 mg tablet See Rx Instructions .ROUTE .COMPLEX Qty: 90 3RF Dose Instruction: TAKE 1 TABLET BY MOUTH DAILY FOR BLOOD THINNER Rx Instructions: TAKE 1 TABLET BY MOUTH DAILY FOR BLOOD THINNER metolazone 2.5 mg tablet 2.5 mg PO Q OTHER DAY PRN (Reason: Edema) atorvastatin 40 mg tablet 40 mg PO QHS Qty: 90 3RF Primary Care Provider: Victor M Luke Referrals: Victor M Luke DO [Primary Care Provider] -
[2021-11-16 13:27] LABS: Absolute Lymphocyte Count 2.06 X10^3/uL (0.83-4.51); Basophil# 0.02 X10^3/uL; Basophil% 0.3 % (0-1); Eosinophil# 0.11 X10^3/uL; Eosinophils% 1.4 % (0-5); Hematocrit 48.4 % (40-54); Hemoglobin 15.6 g/dL (13.0-16.5); Lymphocyte # 2.06 X10^3/ul (0.83-4.51); Mean Corp Hgb Conc 32.2 g/dL (32-36); Mean Corpuscular Hgb 28.8 pg (27.0-32.0); Mean Corpuscular Volume 89.3 fL (80-94); Mean Platelet Vol. 12.9 fl (6.2-12.0); Monocyte# 0.76 X10^3/uL; Monocyte% 9.6 % (0-10); NRBC Flagged by Analyzer 0 % (0-5); Neutrophil # 4.95 X10^3/uL (2.7-7.7); Neutrophil % 62.3 % (47-70); Platelet Count 142 K/mm3 (150-450); RBC Distribution Width CV 13.8 % (11.6-14.6); RBC Distribution Width SD 44.5 fl (35.1-43.9); Red Blood Count 5.42 M/mm3 (4.6-6.2); White Blood Count 7.9 K/mm3 (4.4-11.0)
[2021-11-16] MEDS: Aspirin 81 MG TAB.CHEW 324 MG PO (13:30)
[2021-11-16] MEDS: Ondansetron 4 MG/2 ML Vial IV (13:30)
[2021-11-16 13:44] LABS: Anion Gap 6 (5-15); BUN 16 mg/dL (7-18); BUN/Creat Ratio 11.6 RATIO (10-20); Calcium,Total 9.2 mg/dL (8.5-10.1); Chloride 104 mmol/L (98-107); Creatinine, Serum 1.38 mg/dL (0.70-1.30); EST Glomerular Filtration Rate 53 mL/min (>60); Est Glom Filt Rate - Afr Amer 64 mL/min (>60); Estimated Creatinine Clearance 45.54 ml/min; Glucose 170 mg/dL (74-106); Potassium 4.4 mmol/L (3.5-5.1); Sodium Level 137 mmol/L (136-145); Troponin-I HS (w/2H Reflex) 7 pg/mL (3.0-78.0)
[2021-11-16 15:24] LABS: Reflex Troponin-HS? (from REC) Y
[2021-11-16 16:01] LABS: Troponin-I HS 7 pg/mL (3.0-78.0)
== END 2021-11-16 16:54 | disposition home or self-care (01) ==
PROVIDERS: Emergency Provider Student in an Organized Health Care Education/Training Program; PCP Family Medicine; Visit Provider Student in an Organized Health Care Education/Training Program
DX: R07.9 Chest pain, unspecified (principal); J44.9 Chronic obstructive pulmonary disease, unspecified; I13.0 Hypertensive heart and chronic kidney disease with heart failure and stage 1 through stage 4 chronic kidney disease, or unspecified chronic kidney disease; I50.9 Heart failure, unspecified; E11.22 Type 2 diabetes mellitus with diabetic chronic kidney disease; N18.30 Chronic kidney disease, stage 3 unspecified; E66.9 Obesity, unspecified; I25.10 Atherosclerotic heart disease of native coronary artery without angina pectoris; E78.5 Hyperlipidemia, unspecified; Z87.891 Personal history of nicotine dependence; Z79.82 Long term (current) use of aspirin; Z79.899 Other long term (current) drug therapy
CPT/HCPCS: 71045; 80048; 84484; 85025; 93005; 96374; 99285; A4216; J2405

== ENCOUNTER → 2021-11-21 | Outpatient (CLI) | payer MEDICARE, OTHER, SELFPAY ==
[2018-08-03 13:04] VITALS: BMI 19.8
[2021-11-21 11:29] LABS: Absolute Lymphocyte Count 1.23 X10^3/uL (0.83-4.51); Absolute Neutrophil Count 4.7 X10^3/uL (2.0-7.7); Basophil# 0.02 X10^3/uL; Basophil% 0.3 % (0-1); Eosinophil# 0.08 X10^3/uL; Eosinophils% 1.2 % (0-5); Hematocrit 45.1 % (40-54); Hemoglobin 14.3 g/dL (13.0-16.5); Lymphocyte # 1.23 X10^3/ul (0.83-4.51); Lymphocyte % 18.4 % (19-41); Mean Corp Hgb Conc 31.7 g/dL (32-36); Mean Corpuscular Hgb 28.3 pg (27.0-32.0); Mean Corpuscular Volume 89.1 fL (80-94); Mean Platelet Vol. 12.4 fl (6.2-12.0); Monocyte# 0.66 X10^3/uL; Monocyte% 9.9 % (0-10); NRBC Flagged by Analyzer 0 % (0-5); Neutrophil # 4.66 X10^3/uL (2.7-7.7); Neutrophil % 69.8 % (47-70); Platelet Count 135 K/mm3 (150-450); RBC Distribution Width SD 45.1 fl (35.1-43.9); Red Blood Count 5.06 M/mm3 (4.6-6.2); White Blood Count 6.7 K/mm3 (4.4-11.0)
[2021-11-21 11:48] LABS: Anion Gap 7 (5-15); BUN 18 mg/dL (7-18); BUN/Creat Ratio 12.9 RATIO (10-20); Calcium,Total 8.9 mg/dL (8.5-10.1); Chloride 106 mmol/L (98-107); EST Glomerular Filtration Rate 52 mL/min (>60); Est Glom Filt Rate - Afr Amer 63 mL/min (>60); Glucose 166 mg/dL (74-106); Potassium 4.2 mmol/L (3.5-5.1); Sodium Level 140 mmol/L (136-145)
[2021-11-21 11:49] LABS: BNP,B-Type NATRIURETIC PEPTIDE 60.9 pg/mL (0-100)
== END | disposition home or self-care (01) ==
LOC: LAB 11:15
PROVIDERS: PCP Family Medicine; Referring Provider Nurse Practitioner Gerontology; Visit Provider Nurse Practitioner Gerontology
DX: R06.00 Dyspnea, unspecified (principal)
CPT/HCPCS: 36415; 80048; 83880; 85025

== ENCOUNTER → 2021-11-26 | Outpatient (CLI) | payer MEDICARE, OTHER, SELFPAY ==
[2018-08-03 13:04] VITALS: BMI 19.8
--- NOTE | 2021-11-27 10:33 | PFT ---
INTRODUCTION: The patient is a 76-year-old male that presents for pulmonary function studies secondary to a diagnosis of dyspnea. Respiratory therapy reported good patient effort. Bronchodilators were used during testing. INTERPRETATION: Forced expiration spirometry demonstrates the presence of a mild obstructive ventilatory impairment. There was no significant response to aerosolized bronchodilators. Spirograms are of good quality and plateau gradually indicating slow emptying of the lungs. Body plethysmography was performed and reveals lung volumes to be within normal limits. Diffusing capacity by single breath CO is also within normal limits. IMPRESSION: Irreversible mild large airways obstructive ventilatory defect with preserved lung volumes and diffusing capacity.
== END | disposition home or self-care (01) ==
LOC: PSN 10:16
PROVIDERS: PCP Family Medicine; Referring Provider Nurse Practitioner Gerontology; Visit Provider Nurse Practitioner Gerontology
DX: R06.00 Dyspnea, unspecified (principal); G47.33 Obstructive sleep apnea (adult) (pediatric); R07.89 Other chest pain
CPT/HCPCS: 94060; 94726; 94729

== ENCOUNTER → 2022-01-20 | Outpatient (CLI) | payer MEDICARE, OTHER, SELFPAY ==
[2018-08-03 13:04] VITALS: BMI 19.8
--- NOTE | 2022-01-20 12:40 | CT_ITS ---
INDICATION: concern for bronchiectesis EXAMINATION: CT CHEST WITHOUT CONTRAST - CT Chest W/O Contrast Injection TECHNIQUE: Helically acquired images were obtained of the chest. A radiation dose optimization technique was used for this scan. IV Contrast dosage and agent: None. COMPARISON: None. FINDINGS: LUNGS, PLEURA AND LARGE AIRWAYS: No masses, consolidation, or edema. No pleural effusion or thickening. No pneumothorax. A 0.3 x 0.4 cm soft tissue density is visualized along the left lateral aspect of the upper trachea visualized on axial series 4 image 14, no evidence of other endotracheal lesions is seen. No evidence of endobronchial lesions is seen. Mild bronchial wall thickening is visualized but no evidence of bronchiectatic changes is seen. No evidence of focal lung infiltrate or consolidation. No evidence of pneumothorax or pleural effusion. No evidence of parenchymal lung masses seen. Pleural reaction visualized. THYROID: No thyroid lesions. HEART AND PERICARDIUM: Heart size is normal. No pericardial effusion. Subtle scattered coronary artery calcifications seen. Suggestion of a vascular stent within the right coronary artery. 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 Retropharyngeal common carotid vessels seen. MEDIASTINUM AND JANELLE: No mediastinal or hilar adenopathy. Esophagus is unremarkable. No hiatal hernia. UPPER ABDOMEN: No acute pathology. BONES: No suspicious lytic or blastic abnormality. Degenerative bone changes seen. CT/Chest without Contrast IMPRESSION: 4 mm endotracheal lesion visualized in the left lateral wall of the trachea. 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 No evidence of bronchiectasis. Electronically Signed: Amari Aceves MD at 16:00 EDT ,
== END | disposition home or self-care (01) ==
LOC: CT 12:39
PROVIDERS: PCP Family Medicine; Referring Provider Internal Medicine Critical Care Medicine; Visit Provider Internal Medicine Critical Care Medicine
DX: R06.00 Dyspnea, unspecified (principal)
CPT/HCPCS: 71250

== ENCOUNTER → 2022-04-14 | Outpatient (CLI) | payer MEDICARE, OTHER, SELFPAY ==
[2018-08-03 13:04] VITALS: BMI 19.8
--- NOTE | 2022-04-14 11:33 | RAD_ITS ---
STUDY: X-RAY CHEST REASON FOR EXAM: Male, 76 years old. Dyspnea TECHNIQUE: Frontal and lateral views of the chest. COMPARISON: CT chest March 22, 2022 and chest x-ray November 16, 2021 FINDINGS: Cervical hardware. The lungs are clear and expanded. Pleural thickening again noted bilaterally. Normal size heart. Normal mediastinum and melanie. Normal visualized pulmonary arteries. Normal visualized aortic arch and descending thoracic aorta. There are diffuse degenerative changes of the visualized thoracic spine. Normal visualized ribs, clavicles, and shoulders. There is no demonstrated abnormality of the visualized soft tissue structures of the upper abdomen. RAD/Chest PA and Lateral IMPRESSION: Chronic bilateral pleural reaction. No acute disease Electronically Signed: Jonathan Garcia MD at 17:48 EST ,
[2022-04-14 12:43] LABS: Absolute Neutrophil Count 3.8 X10^3/uL (2.0-7.7); Basophil# 0.02 X10^3/uL; Basophil% 0.3 % (0-1); Eosinophil# 0.09 X10^3/uL; Eosinophils% 1.5 % (0-5); Hematocrit 42.9 % (40-54); Hemoglobin 14.1 g/dL (13.0-16.5); Lymphocyte % 25.8 % (19-41); Mean Corp Hgb Conc 32.9 g/dL (32-36); Mean Corpuscular Volume 88.1 fL (80-94); Mean Platelet Vol. 12.8 fl (6.2-12.0); Monocyte# 0.67 X10^3/uL; Monocyte% 10.8 % (0-10); NRBC Flagged by Analyzer 0 % (0-5); Neutrophil # 3.79 X10^3/uL (2.7-7.7); Neutrophil % 61.3 % (47-70); Platelet Count 150 K/mm3 (150-450); RBC Distribution Width CV 13.9 % (11.6-14.6); RBC Distribution Width SD 44.7 fl (35.1-43.9); Red Blood Count 4.87 M/mm3 (4.6-6.2); White Blood Count 6.2 K/mm3 (4.4-11.0)
[2022-04-14 13:09] LABS: BNP,B-Type NATRIURETIC PEPTIDE 54.2 pg/mL (0-100)
[2022-04-14 14:04] LABS: Anion Gap 5 (5-15); BUN 15 mg/dL (7-18); BUN/Creat Ratio 13.3 RATIO (10-20); Calcium,Total 8.4 mg/dL (8.5-10.1); Chloride 106 mmol/L (98-107); Creatinine, Serum 1.13 mg/dL (0.70-1.30); EST Glomerular Filtration Rate 67 mL/min (>60); Est Glom Filt Rate - Afr Amer 81 mL/min (>60); Glucose 211 mg/dL (74-106); Potassium 4.4 mmol/L (3.5-5.1); Sodium Level 136 mmol/L (136-145)
== END | disposition home or self-care (01) ==
PROVIDERS: PCP Family Medicine; Visit Provider Nurse Practitioner Gerontology
DX: R06.00 Dyspnea, unspecified (principal); I50.9 Heart failure, unspecified; J92.9 Pleural plaque without asbestos
CPT/HCPCS: 36415; 71046; 80048; 83880; 85025

== ENCOUNTER → 2022-04-21 | Outpatient (CLI) | payer MEDICARE, OTHER, SELFPAY ==
[2018-08-03 13:04] VITALS: BMI 19.8
--- NOTE | 2022-04-21 13:36 | ECHOCS_ITS ---
Reason For Study: DYSPNEA Procedure This was a 2D Doppler, Color Flow transthoracic echocardiogram. The study was technically difficult. Contrast injection was performed. Exam performed in department. Left Ventricle Based upon the 2D echocardiographic and contrast enhanced images obtained there appears to be grossly normal left ventricular size, wall motion, and systolic function. The estimated ejection fraction is 55 %. No evidence for diastolic dysfunction. Right Ventricle Based upon the 2D echocardiographic and contrast enhanced images obtained there appears to be grossly normal right ventricular size and systolic function. Atria Normal left atrium. Normal right atrium. No doppler evidence for ASD. Mitral Valve There is no mitral annular calcification. Normal mitral valve. Trivial mitral valve insufficiency. Tricuspid Valve Normal tricuspid valve. Trivial tricuspid valve insufficiency. Unable to estimate RV systolic pressure/pulmonary artery pressure due to technically difficult study. Aortic Valve Trisinus/trileaflet aortic valve. Mild diffuse aortic valve calcification. Pulmonic Valve The pulmonic valve is not well visualized. Trivial pulmonic valve insufficiency. Great Vessels Normal sized aortic root. Pericardium/Pleural No pericardial effusion. Medication 22 gauge I.V. with prn adaptor inserted into right arm. Diluted definity 1.5ml given slow IV push to enhance endocardial definition. MMode/2D Measurements & Calculations LVIDd: 5.5 cm IVSd: 1.0 cm Ao root diam: 3.2 cm LVIDs: 3.4 cm LVPWd: 1.1 cm FS: 36.8 % LAV(MOD-sp4): 45.5 ml LVAd ap4: 36.1 cm2 SV(MOD-sp4): 53.1 ml LVLd ap4: 8.7 cm EDV(MOD-sp4): 125.1 ml EDV(sp4-el): 127.7 ml LVAs ap4: 25.8 cm2 LVLs ap4: 7.5 cm ESV(MOD-sp4): 72.0 ml ESV(sp4-el): 75.2 ml EF(MOD-sp4): 42.4 % EF(sp4-el): 41.1 % SV(sp4-el): 52.5 ml LA A4 area: 17.3 cm2 LA dimension(2D): 3.8 cm RA A4 area: 12.2 cm2 Time Measurements MV dec time: 0.23 sec Doppler Measurements & Calculations MV E max nicho: 70.6 cm/sec Lat Peak E' Nicho: 17.3 cm/sec Med Peak E' Nicho: 6.6 cm/sec MV A max nicho: 71.8 cm/sec E/E' lat: 4.1 E/E' med: 10.6 MV E/A: 0.98 MV V2 max: 79.0 cm/sec MV dec slope: 312.2 cm/sec2 Ao V2 max: 165.2 cm/sec MV max P.5 mmHg Ao max P.9 mmHg MV V2 mean: 46.1 cm/sec Ao V2 mean: 105.7 cm/sec MV mean P.0 mmHg Ao mean P.3 mmHg MV V2 VTI: 28.7 cm Ao V2 VTI: 34.1 cm AV (velocity ratio): 0.72 LV V1 max: 105.9 cm/sec PA V2 max: 116.2 cm/sec LV V1 max P.5 mmHg PA V2 mean: 80.0 cm/sec LV V1 mean P.7 mmHg LV V1 mean: 77.9 cm/sec LV V1 VTI: 24.6 cm ECHO/Echo Complete W/ Contrast Interpretation Summary The study was technically difficult. Contrast injection was performed. Based upon the 2D echocardiographic and contrast enhanced images obtained there appears to be grossly normal left ventricular size, wall motion, and systolic function. The estimated ejection fraction is 55 %. Trivial mitral valve insufficiency. Trivial tricuspid valve insufficiency. Mild diffuse aortic valve calcification. Trivial pulmonic valve insufficiency. Unable to estimate RV systolic pressure/pulmonary artery pressure due to techni stephany difficult study. No evidence for diastolic dysfunction. Ordering Physician: Luz Elena Mckeon Referring Physician: Luz Elena Mckeon Performed By: Eulalia Torres RCS
== END | disposition home or self-care (01) ==
LOC: CVS 13:32
PROVIDERS: PCP Family Medicine; Referring Provider Nurse Practitioner Gerontology; Visit Provider Nurse Practitioner Gerontology
DX: R06.00 Dyspnea, unspecified (principal)
CPT/HCPCS: 93306; Q9957; C8929

== ENCOUNTER → 2022-06-11 | Outpatient (CLI) | payer MEDICARE, OTHER, SELFPAY ==
[2018-08-03 13:04] VITALS: BMI 19.8
[2022-06-11 12:40] LABS: Anion Gap 10 (5-15); BUN 21 mg/dL (7-18); BUN/Creat Ratio 15.7 RATIO (10-20); Calcium,Total 8.7 mg/dL (8.5-10.1); Chloride 102 mmol/L (98-107); Creatinine, Serum 1.34 mg/dL (0.70-1.30); EST Glomerular Filtration Rate 55 mL/min (>60); Est Glom Filt Rate - Afr Amer 67 mL/min (>60); Glucose 274 mg/dL (74-106); Magnesium 2.2 mg/dL (1.6-2.6); Potassium 4.3 mmol/L (3.5-5.1); Sodium Level 136 mmol/L (136-145)
[2022-06-11 18:34] LABS: Xtra Tube EP Lab EXTRA TUBE
== END | disposition home or self-care (01) ==
LOC: BFHLAB 10:31
PROVIDERS: PCP Family Medicine; Visit Provider Family Medicine
DX: R25.2 Cramp and spasm (principal)
CPT/HCPCS: 36415; 80048; 83735

== ENCOUNTER → 2022-08-19 | Outpatient (CLI) | payer MEDICARE, OTHER, SELFPAY ==
[2018-08-03 13:04] VITALS: BMI 19.8
[2022-08-19 11:15] LABS: Hematocrit 44.6 % (40-54); Hemoglobin 14.3 g/dL (13.0-16.5); Mean Corp Hgb Conc 32.1 g/dL (32-36); Mean Corpuscular Hgb 28.3 pg (27.0-32.0); Mean Corpuscular Volume 88.3 fL (80-94); Mean Platelet Vol. 12.5 fl (6.2-12.0); Platelet Count 151 K/mm3 (150-450); RBC Distribution Width CV 13.9 % (11.6-14.6); RBC Distribution Width SD 44.8 fl (35.1-43.9); Red Blood Count 5.05 M/mm3 (4.6-6.2); White Blood Count 8.2 K/mm3 (4.4-11.0)
[2022-08-19 11:33] LABS: International Normalized Ratio 1.1; Partial Thromboplast Time 30.9 Seconds (24.1-36.2); Prothrombin Time (Protime)PT. 13.4 SECONDS (11.7-14.9)
[2022-08-19 11:54] LABS: Anion Gap 4 (5-15); BUN 15 mg/dL (7-18); Chloride 108 mmol/L (98-107); Creatinine, Serum 1.25 mg/dL (0.70-1.30); EST Glomerular Filtration Rate 60 mL/min (>60); Est Glom Filt Rate - Afr Amer 72 mL/min (>60); Glucose 158 mg/dL (74-106); Potassium 4.3 mmol/L (3.5-5.1); Sodium Level 137 mmol/L (136-145)
== END | disposition home or self-care (01) ==
LOC: LAB 10:57
PROVIDERS: PCP Family Medicine; Referring Provider Internal Medicine Cardiovascular Disease; Visit Provider Internal Medicine Cardiovascular Disease
DX: I10 Essential (primary) hypertension (principal); I25.119 Atherosclerotic heart disease of native coronary artery with unspecified angina pectoris; E78.5 Hyperlipidemia, unspecified; R07.89 Other chest pain; Z95.5 Presence of coronary angioplasty implant and graft; G45.9 Transient cerebral ischemic attack, unspecified
CPT/HCPCS: 36415; 80048; 85027; 85610; 85730

== ENCOUNTER 2022-08-31 11:40 | Observation (INO) | payer MEDICARE, OTHER, SELFPAY ==
[2018-08-03 13:04] VITALS: BMI 19.8
[2022-08-28 08:14] VITALS: BMI 35.4
[2022-08-31] VITALS (10 sets, daily range): BP systolic 103–116; BP diastolic 52–84; PULSE 44–55; RESP 16–25; TEMP 36.6–36.8; O2SAT 92–98; BMI 35.4
--- NOTE | 2022-08-31 11:40 | CL.I_ITS ---
Patient Name: GERRY GARCIA Study Date: 08/31/2022 Performing: Jose Suárez MD Ht: 69 inches 175.26 cm : 1945 Wt: 240.3 lbs 108.86 kg Age: 77 Gender: male BSA: 2.23 PROCEDURE(S) PERFORMED DC02-(12263)LHC/COR IC12-(27109/C9600)KENDALL W/WO PTCA, SINGLE CORONARY ARTERY CLINICAL PROFILE AND CO-MORBIDITIES Indications: Worsening Angina Heart Failure: None Angina Classification Anginal Classification w/in 2 Weeks: CCS III CAD Presentations: Unstable angina. 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 Unable to perform procedure through right radial artery. Right femoral approach used. Successful PTCA/KENDALL Prox RCA ISR using Resolute [place] 3.5x22 mm, post-dilated using 3.75 mm balloon RECOMMENDATIONS ASA Indefinitley Plavix for at least 12 months DESCRIPTION OF PROCEDURE The patient arrived to the procedure lab. The risks and benefits of the procedure as well as a full description of our services here and lack of surgical backup were fully explained to the patient and/or their significant other prior to the catheterization. The Timeout was completed, verifying the correct patient and procedure. The patient's procedural site was prepped and draped in the usual fashion. Local anesthetic was given subcutaneously to right radial region with Lidocaine 2%. Local anesthetic was given subcutaneously to right groin region with Lidocaine 2%. Using a modified Seldinger technique, arterial access was obtained via the right radial artery, a 6Fr sheath was inserted., arterial access was obtained via the right femoral artery, a 6Fr sheath was inserted.. Left Coronary Artery selective angiography was performed in multiple views using a 6 Fr. JL4 catheter. Right Coronary Artery selective angiography was then performed in multiple views using a 6 Fr. 3DRC (Maximo) catheter. Ascending (root) aorta selective angiography was then performed in multiple views. Ascending (root) aorta selective angiography was then performed in multiple viewsThe images were reviewed and options discussed. A decision was then made to proceed with an Intervention, IVUS or other adjunct procedure. 3DRC Guide catheter was inserted and engaged into the RCA. Runthrough Guide wire was advanced to the RCA. NC Emerge 3.0 x 15 Balloon catheter was inserted. Balloon catheter was advanced across lesion in the right coronary, mid. PTCA balloon inflated at 18 atms for 22 secs. PTCA balloon inflated at 20 atms for 6 secs. PTCA balloon inflated at 20 atms for 11 secs. Resolute [place] 3.5 x 22 Drug Eluting stent was inserted. Drug Eluting stent was advanced across the lesion in the right coronary, mid. Angiogram performed pre stent deployment. NC Emerge 3.75 x 15 Balloon catheter was inserted. Balloon catheter was advanced across lesion in the right coronary, mid. Angiogram performed pre balloon dilatation. Angiogram performed post balloon dilatation. Contrast was injected through the sheath and the Right Iliac and Femoral artery were assessed for possible closure device. 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) LEFT ANTERIOR DESCENDING ARTERY: LAD: Tubular 40% Proximal lesion in LAD Tubular 50% Mid lesion in LAD RIGHT CORONARY ARTERY: RCA: In-Stent Restenosis 80% Proximal lesion in RCA, STENT to 80% INTERVENTION INFORMATION LESION SITE: RCA (Mid) Lesion Complexity: High/C, lesion length: 20 mm, culprit lesion: Yes, In-stent restenosis: Yes Pre Stenosis: 80 % Pre intervention DEXTER flow: 3 PROCEDURE: Drug Eluting Stent with pre and post dilatation Post Stenosis: 0 % Post intervention DEXTER flow: 3 Lesion Devices: Terumo .014 180cm Runthrough Extra Floppy straight Cordis 6 Fr 3DRC 100cm Guide Catheter Aquiles Sci NC EMERGE MR 3.00x15 BALLOON Medtronic Resolute [place] RX KENDALL 3.5x22 Aquiles Sci NC EMERGE MR 3.75x15 BALLOON COMPLICATIONS No Complications PROCEDURE MEDICATIONS Fentanyl 50 mcg IV Versed 1 mg IV Fentanyl 50 mcg IV Versed 1 mg IV Fentanyl 50 mcg IV Fentanyl 50 mcg IV Oxygen: 2 L/min via nasal cannula Heparin given IA 08/31/2022 10:06:16 Heparin 8000 unit(s) IV 08/31/2022 10:30:51 Plavix 300 mg PO 08/31/2022 11:24:24 Verapamil 2.5mg, Ntg 200mcgs, 2000 units of Heparin given IA 08/31/2022 10:06:16 IV Bolus: .9 NaCl 450 ml total 08/31/2022 11:07:56 SUMMARY OF HEMODYNAMIC DATA Time AIR REST ECG 07:51:56 AO 106/63 (82) SA 10:09:24 AO 138/75 (100) 10:22:02 Signed By Jose Suárez MD On 08/31/2022 11:39:39 Jose Suárez MD
[2022-08-31] MEDS: 0.9% Normal Saline 1,000 ML 150 ML IV (12:00)
[2022-08-31 12:36] LABS: ACT Activated Clotting Time 311 sec (74-137)
[2022-08-31 12:37] LABS: ACT Activated Clotting Time 275 sec (74-137)
--- NOTE | 2022-08-31 13:58 | CRPHASE1_ITS ---
Patient Communication Former Patient:: Phase I, Phase II PHII Cardiac Rehab Discussed with Patient:: Yes Guide to Cardiac Rehab Given to Patient:: Yes Cardiac Rehab Facility Choice List Given to Patient:: Yes Choice Program [facility] CR PHII:: Communication Given to CR Choice Program Other:: Communication Given to CR Director Of Medicare:: Jose Suárez Phase II Cardiac Rehab:: Yes Sessions:: 36 sessions - 3 days/wk, 12 weeks Cardiac Rehabilitation Info Cardiac Rehabilitation Program Information: Cardiac Rehab The cardiac rehab team at [facility] consists of highly skilled exercise physiologists, nurses, respiratory therapists and physicians working together with you. Our pu rpose is to help you have a full recovery and achieve the goals you set for yourself. Over the years many of our patients have returned to activities they assumed they would never do again! We can help restore your confidence and motivation to make lifestyle changes that can have a significant impact on your health and quality of life! We can help answer questions and concerns you may have about exercise, lifestyle, medications, diet, stress and anxiety which are common following a hospitalization. WE monitor ECG and vital signs during exercise and discuss your progress with you and report to your physician(s). Cardiac Rehab is proven to help reduce readmissions, improve functional capacity and lower recurrence of problems with your heart. Our Cardiac Rehab program is Certified by the [place] [employer]-Vascular and Pulmonary Rehabilitation (AACVPR) and Accredited by the [place] [employer] through our [facility]. You can contact us at . We invite you to call us with your questions or to get started in our program. If you have other questions or concerns be sure to ask your physician/provider during your follow-up visit. WE look forward to seeing you!
--- NOTE | 2022-08-31 13:58 | CRPH1.INSTRU ---
General Education CAD and cardiac anatomy and function:: Patient communicates acknowledgment Explanation of diagnoses and procedures:: Patient communicates acknowledgment Sign/Symptoms of KS:: Patient communicates acknowledgment Antiplatelet therapy: Patient communicates acknowledgment Smoking Patient Nicotine/Smoking Risk Factors Are:: Non-smoker Recommendations Include:: Previous smoker; encourage continued cessation Nicotine/Smoking Response Code:: Patient communicates acknowledgment Dyslipidemia Patient Dyslipidemia Risk Factors Are:: Total Cholesterol, Triglycerides, HDL, LDL Recommendations Include:: Lipid profile not available, Reviewed NCEP/ATP guidelines, Therapeutic Lifestyle Change dietary guidelines Dyslipidemia Response Code:: Patient communicates acknowledgment Overweight/Obesity Patient Overweight/Obesity Risk Factors Are:: Obesity - > or = 30 Recommendations Include:: Weight loss of 5-10%, Reduced calorie diet, Exercise 5-7 times/week Overweight/Obesity:: Patient communicates acknowledgment Hypertension Recommendations Include:: BP <130/80 if diabetic, DASH dietary guidelines, Decrease/maintain normal body weight, Moderation of ETOH Hypertension:: Patient communicates acknowledgment Diabetes Patient Diabetes Risk Factors Are:: Elevated blood sugars Recommendations Include:: Maintain fasting blood sugars 70-110 md/dL, Maintain HgbA1c of 6% or less, Monitor blood sugar as prescribed, Diabetic dietary guidelines, Decrease/maintain body weight Diabetes:: Patient communicates acknowledgment Metabolic Syndrome Patient Metabolic Syndrome Risk Factors Are [3 of 5]:: Fasting blood sugar > 100 mg/dL, Waist circumference > 35 [female] or 40 [male], High triglyceride >150, Hypertension, Low HDL <40 [male] or < 50 [female] Recommendations Include:: Patient is diabetic, Encouraged follow-up with Primary Care Physician Metabolic Syndrome Response Code:: Patient communicates acknowledgment Sedentary Patient Sedentary Risk Factors Are:: Lack of regular exercise Recommendations Include:: Aerobic exercise 5-7 times/week for 20-30 minutes continuously, Benefits of regular exercise, Discussed home walking program, Monitored Outpatient Cardiac Rehab Sedentary Response Code:: Patient communicates acknowledgment Stress Recommendations Include:: Identification of stressors, and assessment of coping skills, Stress management techniques Stress Response Code:: Patient communicates acknowledgment
[2022-08-31] MEDS: Potassium Chloride Oral Tablet 20 MEQ 60 MEQ PO (16:20)
[2022-08-31] MEDS: Glimepiride 4 MG Tablet PO (16:20)
[2022-08-31] MEDS: Acetaminophen 325 MG Tablet 650 MG PO (19:56)
[2022-08-31] MEDS: Mirtazapine 15 MG Tablet PO (21:50)
[2022-08-31] MEDS: Atorvastatin Calcium 40 MG Tablet PO (21:50)
[2022-09-01 03:17] VITALS: BP 121/68; PULSE 51; RESP 16; TEMP 36.6; O2SAT 93
[2022-09-01 04:08] VITALS: BMI 35.2
[2022-09-01 07:01] VITALS: O2SAT 94
[2022-09-01 07:05] LABS: Mean Corp Hgb Conc 31.7 g/dL (32-36); Mean Corpuscular Hgb 28.3 pg (27.0-32.0); Mean Corpuscular Volume 89.1 fL (80-94); Mean Platelet Vol. 12.8 fl (6.2-12.0); Platelet Count 106 K/mm3 (150-450); RBC Distribution Width CV 13.5 % (11.6-14.6); RBC Distribution Width SD 44.1 fl (35.1-43.9); White Blood Count 4.7 K/mm3 (4.4-11.0)
[2022-09-01 07:39] LABS: AST(SGOT) 21 U/L (15-37); Alanine Aminotransfer ALT/SGPT 35 U/L (16-61); Albumin, Serum 2.8 g/dL (3.2-5.0); Alkaline Phosphatase 149 U/L (45-117); Anion Gap 3 (5-15); BUN 21 mg/dL (7-18); BUN/Creat Ratio 15.8 RATIO (10-20); Chloride 112 mmol/L (98-107); Creatinine, Serum 1.33 mg/dL (0.70-1.30); EST Glomerular Filtration Rate 55 mL/min (>60); Est Glom Filt Rate - Afr Amer 67 mL/min (>60); Estimated Creatinine Clearance 46.51 ml/min; Globulin 2.9 g/dL (2.2-4.2); Glucose 151 mg/dL (74-106); Potassium 3.9 mmol/L (3.5-5.1); Protein, Total 5.7 g/dL (6.4-8.2); Sodium Level 142 mmol/L (136-145)
[2022-09-01] MEDS: Glimepiride 4 MG Tablet PO (07:48)
[2022-09-01] MEDS: Aspirin E.C. 81 MG Tablet PO (07:48)
[2022-09-01] MEDS: Potassium Chloride Oral Tablet 20 MEQ 60 MEQ PO (07:48)
--- NOTE | 2022-09-01 08:35 | DCINST_ITS ---
Discharge Instructions Diet Discharge Diet: Low fat / Low cholesterol Activity Discharge Activity: Return to Normal Activity Additional Activity Instructions:: No heavy lifting, bending or strenuous physical activity for 1 week Dressing / Incision Call your doctor if your incision/area has: Continuous Slow Oozing, Sudden Increased Bleeding, Increased Pain/ Swelling, Increased Redness and Swelling at the incision site Call your doctor if you observe: Fever of 101 or Higher Follow Up Care Please Follow Up With: Jose Suárez MD When: 2-4 weeks Test Results: Test results from this visit will be discussed in further detail at your follow- up appointment, if applicable. Pending Tests Upon Discharge: Check CBC, CMP on 09/03/2022 Discharge Plan Admission Admit Date/Time: 08/31/22 11:40 Attending Provider: Jose Suárez Primary Care Provider: Victor M Luke Discharge Orders/Prescriptions Prescriptions: Continued fluoxetine 40 mg capsule 80 mg PO DAILY 90 Days Qty: 180 Label Comments: anxiety magnesium oxide 400 mg (241.3 mg magnesium) tablet 800 mg PO DAILY potassium chloride 20 mEq tablet,ER particles/crystals 60 meq PO BID Label Comments: supplement cetirizine 10 mg tablet 10 mg PO DAILY PRN (Reason: Allergic Reaction) cholecalciferol (vitamin D3) 25 mcg (1,000 unit) tablet 25 mcg PO DAILY glimepiride 4 mg tablet 4 mg PO BID metoprolol tartrate 25 mg tablet 25 mg PO BID nitroglycerin 0.4 mg tablet, sublingual 0.4 mg SUBLINGUAL Q5-15M PRN (Reason: CHEST PAIN) Qty: 25 3RF Label Comments: chest pain aspirin 81 MG tablet 81 mg PO DAILY@0800 Label Comments: health maintenance cyanocobalamin (vitamin B-12) 1,000 MCG capsule 1,000 mcg PO DAILY Qty: 0 Label Comments: vitamin pantoprazole 40 MG tablet 40 mg PO DAILY acetaminophen 325 MG tablet 650 mg PO Q6H PRN PRN (Reason: Pain 1-02/09) 0RF mirtazapine [Remeron] 15 mg tablet 15 mg PO QHS Label Comments: sleep atorvastatin 40 mg tablet 40 mg PO QHS Qty: 90 3RF spironolactone 25 mg tablet 25 mg PO DAILY Qty: 90 3RF Label Comments: fluid furosemide 40 mg tablet 80 mg PO DAILY Qty: 180 3RF Label Comments: Hold if systolic blood pressure less than 120 mmHg amlodipine 5 mg tablet 5 mg PO BID Qty: 60 11RF clopidogrel 75 mg tablet See Rx Instructions .ROUTE .COMPLEX Qty: 90 3RF Dose Instruction: TAKE 1 TABLET BY MOUTH ONCE DAILY FOR BLOOD THINNER Rx Instructions: TAKE 1 TABLET BY MOUTH ONCE DAILY FOR BLOOD THINNER Held metformin 500 mg tablet 500 mg PO BID Hold Instructions: Resume on 09/03/22. Discontinued isosorbide mononitrate 30 mg tablet extended release 24 hr 30 mg PO BID Qty: 180 3RF isosorbide mononitrate 60 mg tablet extended release 24 hr 60 mg PO BID Qty: 180 3RF Referrals / Follow Up: Victor M Luke DO [Primary Care Provider] - Disposition Disposition (needs filled in before D/C Order can be placed): Home, Self Care
--- NOTE | 2022-09-01 09:50 | PCM.PN.BLA ---
Progress Note Reports complete resolution of angina. Denies any complaints today. Right groin stable. No hematoma or bruit. Right radial pulse 2+. Mildly decreased platelet count noted. Repeat CBC in 2 days. Also repeat complete metabolic panel in 2 days. Discharge home. Follow-up as outpatient.
[2022-09-01 09:57] VITALS: BP 127/68; PULSE 52; RESP 18; TEMP 36.6; O2SAT 93
[2022-09-01 09:59] VITALS: BP 127/68; PULSE 49
--- NOTE | 2022-09-01 11:42 | PHA.DC.MR ---
Pharmacy Service has performed discharge medication reconciliation for this patient. The patient's discharge medication list was reviewed for discrepancies and discrepancies were resolved. Home Medications aspirin 81 mg tablet,delayed release 81 mg PO DAILY@0800 health maintenance 01/21/17 mirtazapine 15 mg tablet (Remeron) 15 mg PO QHS sleep 09/21/18 cyanocobalamin (vitamin B-12) 1,000 mcg capsule 1,000 mcg PO DAILY vitamin ##0 06/01/19 pantoprazole 40 mg tablet,delayed release 40 mg PO DAILY GERD 12/20/19 acetaminophen 325 mg tablet 650 mg PO Q6H PRN PRN Pain 1-02/0901/03/20 magnesium oxide 400 mg (241.3 mg magnesium) tablet 800 mg PO DAILY SUPPLEMENT 08/01/21 potassium chloride 20 mEq tablet,extended release(part/cryst) 60 meq PO BID supplement 08/01/21 cetirizine 10 mg tablet 10 mg PO DAILY PRN Allergic Reaction 09/16/21 cholecalciferol (vitamin D3) 25 mcg (1,000 unit) tablet 25 mcg PO DAILY 09/16/21 fluoxetine 40 mg capsule 80 mg PO DAILY DEPRESSION 90 days #180 caps 09/16/21 glimepiride 4 mg tablet 4 mg PO BID 09/16/21 atorvastatin 40 mg tablet 40 mg PO QHS CHOLESTEROL #90 tabs 10/31/21 spironolactone 25 mg tablet 25 mg PO DAILY fluid #90 tabs 12/09/21 furosemide 40 mg tablet 80 mg PO DAILY diuretic #180 tabs 01/27/22 amlodipine 5 mg tablet 5 mg PO BID bp #60 tabs 03/11/22 clopidogrel 75 mg tablet See Rx Instructions .Route .COMPLEX #90 tabs 05/26/22 metformin 500 mg tablet 500 mg PO BID 08/19/22 metoprolol tartrate 25 mg tablet 25 mg PO BID 08/19/22 nitroglycerin 0.4 mg sublingual tablet 0.4 mg sublingual Q5-15M PRN CHEST PAIN #25 tabs 08/19/22
== END 2022-09-01 09:54 | disposition home or self-care (01) ==
LOC: PCU 09-01 08:25 → CLSP 09-01 09:51 → PCU 09-01 09:51
PROVIDERS: Admitting Provider Internal Medicine Cardiovascular Disease; PCP Family Medicine; Referring Provider Internal Medicine Cardiovascular Disease; Visit Provider Internal Medicine Cardiovascular Disease
DX: I25.110 Atherosclerotic heart disease of native coronary artery with unstable angina pectoris (principal); J44.9 Chronic obstructive pulmonary disease, unspecified; E11.22 Type 2 diabetes mellitus with diabetic chronic kidney disease; N18.30 Chronic kidney disease, stage 3 unspecified; Z95.5 Presence of coronary angioplasty implant and graft; Z79.82 Long term (current) use of aspirin; Z79.899 Other long term (current) drug therapy; Z79.84 Long term (current) use of oral hypoglycemic drugs; Z79.02 Long term (current) use of antithrombotics/antiplatelets; I12.9 Hypertensive chronic kidney disease with stage 1 through stage 4 chronic kidney disease, or unspecified chronic kidney disease; Z86.16 Personal history of COVID-19; E78.5 Hyperlipidemia, unspecified; Z86.73 Personal history of transient ischemic attack (TIA), and cerebral infarction without residual deficits; G47.33 Obstructive sleep apnea (adult) (pediatric); Z87.891 Personal history of nicotine dependence; E66.9 Obesity, unspecified
CPT/HCPCS: 36415; 80053; 85027; 85347; 92928; 93005; 93454; 96360; 96361; 99152; 99153; 99221; J7030; J7040; Q9967; C1725; C1760; C1769; C1874; C1887; C1894; C9600; G0378

== ENCOUNTER 2022-09-17 19:44 | Inpatient (IN) | payer MEDICARE, OTHER, SELFPAY ==
[2018-08-03 13:04] VITALS: BMI 19.8
[2022-09-17] VITALS (9 sets, daily range): BP systolic 112–155; BP diastolic 68–81; PULSE 52–71; RESP 12–18; TEMP 36.2–36.8; O2SAT 94–97; BMI 36.4
--- NOTE | 2022-09-17 19:50 | EKG12_ITS ---
Test Reason : DYSRHYTHMIA Blood Pressure : / mmHG Vent. Rate : 064 BPM Atrial Rate : 064 BPM P-R Int : 176 ms QRS Dur : 096 ms QT Int : 450 ms P-R-T Axes : 065 070 061 degrees QTc Int : 464 ms Normal sinus rhythm Normal ECG Confirmed by NAOMIE PALOMO, PARVEZ ([id number]), science editor VERONICA SCOTT ([id number]) on 09/18/2022 8:54:25 AM Referred By: KERLINE Confirmed By:PARVEZ AKBAR MD
--- NOTE | 2022-09-17 19:55 | RAD_ITS ---
STUDY: X-RAY CHEST REASON FOR EXAM: Male, 77 years old. chest pain TECHNIQUE: AP portable COMPARISON: None. FINDINGS: The lungs are clear and expanded. There is no demonstrated pleural abnormality. Normal size heart. Normal mediastinum and melanie. Normal visualized pulmonary arteries. Mildly calcified aortic arch and descending thoracic aorta. Dorsal spine and shoulders demonstrate degenerative change. Postsurgical changes of the left shoulder.. Normal visualized ribs, and clavicles. Postop change status post cervical fusion There is no demonstrated abnormality of the visualized soft tissue structures of the upper abdomen. RAD/Chest 1 View (Portable) IMPRESSION: No acute cardiopulmonary pathology. Electronically Signed: Alexandr Josue MD at 20:17 EDT ,
[2022-09-17 20:13] LABS: Absolute Lymphocyte Count 2.05 X10^3/uL (0.83-4.51); Absolute Neutrophil Count 6.4 X10^3/uL (2.0-7.7); Basophil# 0.04 X10^3/uL; Basophil% 0.4 % (0-1); Eosinophil# 0.15 X10^3/uL; Eosinophils% 1.5 % (0-5); Hematocrit 48.9 % (40-54); Hemoglobin 15.6 g/dL (13.0-16.5); Lymphocyte # 2.05 X10^3/ul (0.83-4.51); Lymphocyte % 21.2 % (19-41); Mean Corp Hgb Conc 31.9 g/dL (32-36); Mean Corpuscular Hgb 28.2 pg (27.0-32.0); Mean Corpuscular Volume 88.3 fL (80-94); Mean Platelet Vol. 12.6 fl (6.2-12.0); Monocyte# 1.04 X10^3/uL; Monocyte% 10.7 % (0-10); NRBC Flagged by Analyzer 0 % (0-5); Neutrophil # 6.35 X10^3/uL (2.7-7.7); Neutrophil % 65.6 % (47-70); Platelet Count 177 K/mm3 (150-450); RBC Distribution Width CV 14.2 % (11.6-14.6); RBC Distribution Width SD 45.2 fl (35.1-43.9); Red Blood Count 5.54 M/mm3 (4.6-6.2); White Blood Count 9.7 K/mm3 (4.4-11.0)
[2022-09-17 20:45] LABS: Anion Gap 9 (5-15); BUN 19 mg/dL (7-18); BUN/Creat Ratio 12.6 RATIO (10-20); Calcium,Total 8.5 mg/dL (8.5-10.1); Chloride 105 mmol/L (98-107); Creatinine, Serum 1.51 mg/dL (0.70-1.30); EST Glomerular Filtration Rate 48 mL/min (>60); Est Glom Filt Rate - Afr Amer 58 mL/min (>60); Estimated Creatinine Clearance 39.64 ml/min; Glucose 116 mg/dL (74-106); Potassium 3.7 mmol/L (3.5-5.1); Sodium Level 141 mmol/L (136-145); Troponin-I HS (w/2H Reflex) 6 pg/mL (3.0-78.0)
--- NOTE | 2022-09-17 21:04 | CT_ITS ---
We are attempting to reach an attending provider to discuss findings. An addendum with communication details will be sent when the communication is complete. STUDY: CTA HEAD AND NECK WITH CONTRAST REASON FOR EXAM: Male, 77 years old. Neuro deficit, acute, stroke suspected RADIATION DOSAGE (If Supplied By Facility): CTDIvol = ( 29.21 ) mGy, DLP = ( 776.69 ) mGycm TECHNIQUE: CT angiography was performed with a multi-detector CT scanner. Data acquisition was obtained from the skull base through the vertex following intravenous administration of IV 100mL [id number]-[id number]. MIP images were reconstructed from the axial data set. Post-processing of the angiographic images was performed, with multiplanar reformation and 3D reconstruction. Individualized dose optimization techniques were used for this CT. COMPARISON: No relevant priors. FINDINGS: Normal bilateral petrous carotid arteries. Mild calcific plaquing of the right cavernous carotid artery with a normal supraclinoid bifurcation. Mild calcific plaquing of the left cavernous carotid artery with a normal supraclinoid bifurcation. Normal right A1 segments of the anterior cerebral artery. Normal left A1 segments of the anterior cerebral artery. Anterior communicating artery not visualized consistent with normal variant). Normal bilateral A2 segments of the anterior cerebral arteries. Normal right M1 and M2 segments of the middle cerebral arteries, with a normal M1 bifurcation. Normal left M1 and M2 segments of the middle cerebral arteries, with a normal M1 bifurcation. Posterior communicating arteries are not visualized consistent with normal variant Normal bilateral vertebral arteries. Normal basilar artery with a normal basilar bifurcation. The visualized bilateral superior cerebellar (SCA) arteries are normal. Normal bilateral P1, P2 and visualized P3 segments of the posterior cerebral arteries. There is no demonstrated aneurysm of the upper [place] of [place]. AORTIC ARCH: Normal visualized aortic arch. Normal origins of the brachiocephalic, left common carotid, and left subclavian arteries. RIGHT CAROTID ARTERIES: Normal right common carotid artery (CCA). Mild calcific plaquing of the right common carotid bulb. Normal origin of the right internal carotid (ICA) artery without a hemodynamically significant stenosis. Normal visualized cervical portion of the right internal carotid artery. Normal origin of the right external carotid artery (ECA). LEFT CAROTID ARTERIES: Normal left common carotid artery (CCA). Moderate calcific plaquing of the left common carotid bulb. Normal origin of the left internal carotid (ICA) artery without a hemodynamically significant stenosis. Normal visualized cervical portion of the left internal carotid artery. Normal origin of the left external carotid artery (ECA). VERTEBRAL ARTERIES: Right vertebral is dominant and normal caliber. There is narrowing of the left vertebral terminating in PICA consistent with normal variant CT/STROKE CTA Head AND Neck W/Con IMPRESSION: Mild atherosclerotic changes of the head and neck without hemodynamically significant stenosis utilizing NASCETcriteria. Electronically Signed: Alexandr Josue MD at 21:49 EDT ,
--- NOTE | 2022-09-17 21:04 | CT_ITS ---
We are attempting to reach an attending provider to discuss findings. An addendum with communication details will be sent when the communication is complete. INDICATION: Neuro deficit, acute, stroke suspected EXAMINATION: CT BRAIN - CT Head Stroke Protocol W/O Contrast Injection TECHNIQUE: Multiple axial images were obtained of the head without intravenous contrast. A radiation dose optimization technique was used for this scan. IV Contrast dosage and agent: None. RADIATION DOSAGE (If Supplied By Facility): CTDIvol = ( ) mGy, DLP = ( 846.73 ) mGycm COMPARISON: November 17, 2020 FINDINGS: BRAIN PARENCHYMA: No intra- or extra-axial hemorrhage. No evidence of acute infarct. No intracranial mass or mass effect. Mild periventricular white matter ischemic changes.. Posterior fossa structures are unremarkable. CSF SPACES: Appropriate for age. No hydrocephalus. Basal cisterns are patent. CALVARIUM, SKULL BASE, PARANASAL SINUSES AND MASTOID AIR CELLS: Clear. No discrete lytic or blastic abnormalities. ORBITS: Both globes, extraocular muscles, optic nerves and retrobulbar fat appear unremarkable. Mild calcific plaquing of the cavernous carotids. No significant change since prior study CT/STROKE Brain/Head without Cont IMPRESSION: Mild periventricular white matter ischemic change. No acute bleed. If concern for acute infarct MRI recommended. Electronically Signed: Alexandr Josue MD at 21:27 EDT ,
--- NOTE | 2022-09-17 21:08 | ED.VIS.STROK ---
HPI History of Present Illness Chief Complaint: Chest Pain Narrative Narrative: 77-year-old male presenting with some dizziness. He states this lightheadedness and vertiginous in nature. He states this started at about noon. He has had this for a couple of days on and off. He had a little bit of chest discomfort he says as well. This comes and goes. Patient states that today he has been a little more thirsty than usual. Family states he was like this a couple of days ago but then felt better. At about 1830 the family states that he started having some lightheadedness/dizziness and then developed some chest discomfort. The patient notes that his left arm started to feel weak and his left leg started to feel weak. He started to feel little bit numb around the left side of his mouth. He feels like his arm and leg have less sensation as well. He is having trouble ambulating because he gets dizzy and lightheaded. PFSH PFSH Medical History Atherosclerotic heart disease [place] coronary artery w/angina pectoris CAD (coronary artery disease) 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, stage 3 COPD (chronic obstructive pulmonary disease) Essential hypertension History of COVID-19 History of melanoma Hyperlipidemia Obesity Obstructive sleep apnea Presence of stent in coronary artery (~08/31/22) TIA (transient ischemic attack) Type 2 diabetes mellitus without complications Home Medications aspirin 81 mg tablet,delayed release 81 mg PO DAILY@0800 health maintenance 01/21/17 [History Last Taken 08/31/22] mirtazapine 15 mg tablet (Remeron) 15 mg PO QHS sleep 09/21/18 [History Last Taken 12/19/19] cyanocobalamin (vitamin B-12) 1,000 mcg capsule 1,000 mcg PO DAILY vitamin ##0 06/01/19 [History Last Taken 12/19/19] pantoprazole 40 mg tablet,delayed release 40 mg PO DAILY GERD 12/20/19 [History Last Taken 12/19/19] acetaminophen 325 mg tablet 650 mg PO Q6H PRN PRN Pain 1-02/0901/03/20 [Rx Last Taken Unknown] magnesium oxide 400 mg (241.3 mg magnesium) tablet 800 mg PO DAILY SUPPLEMENT 08/01/21 [History Last Taken Unknown] potassium chloride 20 mEq tablet,extended release(part/cryst) 60 meq PO BID supplement 08/01/21 [History Last Taken Unknown] cetirizine 10 mg tablet 10 mg PO DAILY PRN Allergic Reaction 09/16/21 [History Last Taken Unknown] cholecalciferol (vitamin D3) 25 mcg (1,000 unit) tablet 25 mcg PO DAILY 09/16/21 [History Last Taken Unknown] fluoxetine 40 mg capsule 80 mg PO DAILY DEPRESSION 90 days #180 caps 09/16/21 [History Last Taken Unknown] glimepiride 4 mg tablet 4 mg PO BID 09/16/21 [History Last Taken Unknown] atorvastatin 40 mg tablet 40 mg PO QHS CHOLESTEROL #90 tabs 10/31/21 [Rx Last Taken Unknown] spironolactone 25 mg tablet 25 mg PO DAILY fluid #90 tabs 12/09/21 [Rx Last Taken Unknown] furosemide 40 mg tablet 80 mg PO DAILY diuretic #180 tabs 01/27/22 [Rx Last Taken Unknown] amlodipine 5 mg tablet 5 mg PO BID bp #60 tabs 03/11/22 [Rx Last Taken 08/31/22] clopidogrel 75 mg tablet See Rx Instructions .Route .COMPLEX #90 tabs 05/26/22 [Rx Last Taken 08/31/22] metformin 500 mg tablet 500 mg PO BID 08/19/22 [History Last Taken 08/30/22] metoprolol tartrate 25 mg tablet 25 mg PO BID 08/19/22 [History Last Taken Unknown] nitroglycerin 0.4 mg sublingual tablet 0.4 mg sublingual Q5-15M PRN CHEST PAIN #25 tabs 08/19/22 [Rx Last Taken Unknown] Allergy/AdvReac Type Severity Reaction Status Date / Time No Known Allergies Allergy Verified 08/19/22 10:02 Family History Father Parkinsons disease Prostate cancer Mother Osteoporosis Surgical History History of herniorrhaphy History of percutaneous transluminal coronary angioplasty (08/18/18) History of prostatectomy History of tonsillectomy History of tympanostomy tube placement Hx of cholecystectomy Presence of coronary angioplasty implant and graft (~08/31/22) Social History household members: none Smoking Status: Former smoker quit date: 05/03/98 pack-years: 50 how long ago did patient quit smokin years ago alcohol intake: never substance use type: does not use caffeine: Yes Type: coffee and tea Number of servings: 6 ROS ROS ED Constitutional Constitutional ED: Denies chills or fever(s) Eyes Eyes: Denies change in vision or diplopia ENT ENT ED: Denies rhinorrhea or sore throat Cardiovascular Cardiovascular: Reports chest pain; Denies palpitations Respiratory/Chest Respiratory/Chest: Denies cough or dyspnea Gastrointestinal Gastrointestinal: Denies abdominal pain, nausea or vomiting Genitourinary Genitourinary ED: Denies dysuria or hematuria Musculoskeletal Musculoskeletal: Denies arthralgias Integumentary Denies abscess or Abrasions Neurologic Neurologic: Denies headache(s) or paresthesias Psychiatric Psychiatric: Denies anxiety or depression EXAM Physical Exam Const Vital Signs: 09/17/22 19:45 09/17/22 21:17 09/17/22 21:17 Temperature 97.6 F L Temperature Source Temporal Pulse Rate 68 Respiratory Rate 18 12 Blood Pressure Blood Pressure Mean Pulse Ox 95 96 Oxygen Delivery Method Room Air 09/17/22 21:22 09/17/22 21:24 09/17/22 21:29 Temperature 97.6 F L Temperature Source Temporal Pulse Rate 62 62 Respiratory Rate 15 15 Blood Pressure 112/77 112/76 155/79 H Blood Pressure Mean 88 88 104 Pulse Ox 95 95 Oxygen Delivery Method Room Air Room Air 09/17/22 21:38 09/17/22 21:45 Temperature Temperature Source Pulse Rate 65 Respiratory Rate 16 Blood Pressure 155/81 H 112/77 Blood Pressure Mean 105 88 Pulse Ox 94 Oxygen Delivery Method Room Air Positive well nourished General Appearance ED: NAD HEENT Reports dry mucous membranes Mouth ED: Yes dry mucous membranes Mouth: dry mucous membranes Eyes PERRL and EOMs intact bilaterally Neck no lymphadenopathy Chest Wall inspection of chest normal Resp normal respiratory effort and clear to auscultation bilaterally Auscultation: Negative for rales, rhonchi or wheezes Cardio Rate: regular rate Rhythm: regular rhythm Neuro oriented x3 and CN's II-XII intact bilaterally Sensorium / Orientation: alert Speech: speech normal Psych mental status grossly normal NIHSS NIHSS Initial: 1a Level of Consciousness: 0 1b LOC Questions (Score 2 if aphasic/stupor): 0 1c LOC Commands (Only score 1st attempt): 0 2 Best Gaze (If aphasic, use reflexive mvmts.): 0 3 Visual: 0 4 Facial Palsy: 1 5 Motor Arm Right (UN = amputation/fusion): 0 5 Motor Arm Left: 1 6 Motor Leg Right: 0 6 Motor Leg Left: 2 7 Limb ataxia (Only + if out of proportion): 2 8 Sensory (Aphasia/stupor=0 or 1, coma=2): 1 9 Best Language: 0 10 Dysarthria (mute, coma=2, intubated=UN): 0 11 Extinction and Inattention (only scored if +): 0 Total Score: 7 MDM MDM MDM Narrative Medical decision making narrative: Patient presenting with dizziness/lightheadedness when she had on and off for couple of days. He is also having some chest discomfort. Initially triaged as chest pain. Protocol labs were put in. Due to heavy volumes there was some delay in getting into the patient's room. When I did arrive into the patient's room it was then that he started talking about his weakness on the left side of his body. He states the left side of his face feels weak and numb. He states he feels the same sensation of weakness and numbness on the left side of his body. His NIH stroke scale score is 7. Patient taken to CT immediately following this. Stroke team was called. CBC was already obtained and shows a normal white blood cell count. Hemoglobin hematocrit are stable. Platelets are normal. Creatinine is elevated today at 1.51. I will give him some normal saline. Electrolytes within normal limits. High-sensitivity troponin is 6. EKG sinus rhythm with a ventricular rate of 64 bpm without sign of ischemic change. Patient is not on any anticoagulation. He is within the window of tPA for the weakness on the left side. Is unclear whether the dizziness and lightheadedness which he is experiencing for days is contributing to this. Chest x-ray my interpretation shows no acute cardiopulmonary process. The radiologist interprets this and agrees. CT brain and CTA of the head and neck were both negative. Stroke neurologist Beamed in. He was able to examine the patient. He was able to determine that the symptom onset was more around 2:00 PM which puts him outside the window for tPA and also that he has had some intermittent symptoms of lightheadedness and weakness previously. He recommended admission for MRI and further evaluation. Discussed with hospitalist for admission. Impression: 1. Acute left-sided weakness 2. Lightheadedness Lab Data Labs: Laboratory Results - last 24 hr 09/17/22 09/17/22 09/17/22 19:55 19:55 21:25 WBC 9.7 RBC 5.54 Hgb 15.6 Hct 48.9 MCV 88.3 MCH 28.2 MCHC 31.9 L RDW Std Deviation 45.2 H RDW Coeff of [place] 14.2 Plt Count 177 MPV 12.6 H Immature Gran % (Auto) 0.600 Neut % (Auto) 65.6 Lymph % (Auto) 21.2 [place] % (Auto) 10.7 H Eos % (Auto) 1.5 Baso % (Auto) 0.4 Absolute Neuts (auto) 6.4 Absolute Lymphs (auto) 2.05 Nucleated RBC % 0 PT 12.3 INR 0.9 APTT 32.1 Sodium 141 Potassium 3.7 Chloride 105 Carbon Dioxide 27.0 Anion Gap 9 BUN 19 H Creatinine 1.51 H Estim Creat Clear Calc 39.64 Est GFR (MDRD) Af Amer 58 L Est GFR (MDRD) Non-Af 48 L BUN/Creatinine Ratio 12.6 Glucose 116 H Calcium 8.5 Troponin I High Sens 6 Radiography Diagnostic Testing: Clinical Impression(s) from Imaging Studies Chest X-Ray 09/17/22 19:55 IMPRESSION: No acute cardiopulmonary pathology. Electronically Signed: Alexandr Josue MD at 20:17 EDT , Brain CT 09/17/22 21:04 IMPRESSION: Mild periventricular white matter ischemic change. No acute bleed. If concern for acute infarct MRI recommended. Electronically Signed: Alexandr Josue MD at 21:27 EDT , ADDENDUM: 09/17/22 2696 IMPRESSION: Mild periventricular white matter ischemic change. No acute bleed. If concern for acute infarct MRI recommended. N.B. : The above Results were Read Back by Alexandr Josue MD to Pardeep Hall DO, and understanding confirmed on 09/17/2022 21:28:16 (ET). Electronically Signed: Alexandr Josue MD at 21:27 EDT , Head/Neck CTA 09/17/22 21:04 IMPRESSION: Mild atherosclerotic changes of the head and neck without hemodynamically significant stenosis utilizing NASCETcriteria. Electronically Signed: Alexandr Josue MD at 21:49 EDT , ADDENDUM: 09/17/222200 IMPRESSION: Mild atherosclerotic changes of the head and neck without hemodynamically significant stenosis utilizing NASCETcriteria. N.B. : The above Results were Read Back by Alexandr Josue MD to Pardeep Hall DO, and understanding confirmed on 09/17/2022 21:54:37 (ET). Electronically Signed: Alexandr Josue MD at 21:49 EDT , Discharge Plan Triage Chief Complaint: Chest Pain ED Provider: Pardeep Hall Dx/Rx/DC Orders Prescriptions: No Action fluoxetine 40 mg capsule 80 mg PO DAILY 90 Days Qty: 180 Label Comments: anxiety magnesium oxide 400 mg (241.3 mg magnesium) tablet 800 mg PO DAILY potassium chloride 20 mEq tablet,ER particles/crystals 60 meq PO BID Label Comments: supplement cetirizine 10 mg tablet 10 mg PO DAILY PRN (Reason: Allergic Reaction) cholecalciferol (vitamin D3) 25 mcg (1,000 unit) tablet 25 mcg PO DAILY glimepiride 4 mg tablet 4 mg PO BID metoprolol tartrate 25 mg tablet 25 mg PO BID nitroglycerin 0.4 mg tablet, sublingual 0.4 mg SUBLINGUAL Q5-15M PRN (Reason: CHEST PAIN) Qty: 25 3RF Label Comments: chest pain metformin 500 mg tablet 500 mg PO BID Hold Instructions: Resume on 09/03/22. aspirin 81 MG tablet 81 mg PO DAILY@0800 Label Comments: health maintenance cyanocobalamin (vitamin B-12) 1,000 MCG capsule 1,000 mcg PO DAILY Qty: 0 Label Comments: vitamin pantoprazole 40 MG tablet 40 mg PO DAILY acetaminophen 325 MG tablet 650 mg PO Q6H PRN PRN (Reason: Pain -02/09) 0RF mirtazapine [Remeron] 15 mg tablet 15 mg PO QHS Label Comments: sleep atorvastatin 40 mg tablet 40 mg PO QHS Qty: 90 3RF spironolactone 25 mg tablet 25 mg PO DAILY Qty: 90 3RF Label Comments: fluid furosemide 40 mg tablet 80 mg PO DAILY Qty: 180 3RF Label Comments: Hold if systolic blood pressure less than 120 mmHg amlodipine 5 mg tablet 5 mg PO BID Qty: 60 11RF clopidogrel 75 mg tablet See Rx Instructions .ROUTE .COMPLEX Qty: 90 3RF Dose Instruction: TAKE 1 TABLET BY MOUTH ONCE DAILY FOR BLOOD THINNER Rx Instructions: TAKE 1 TABLET BY MOUTH ONCE DAILY FOR BLOOD THINNER Primary Care Provider: Victor M Luke Referrals: Victor M Luke DO [Primary Care Provider] -
[2022-09-17 21:47] LABS: International Normalized Ratio 0.9; Prothrombin Time (Protime)PT. 12.3 SECONDS (11.7-14.9)
[2022-09-17 21:48] LABS: Partial Thromboplast Time 32.1 Seconds (24.1-36.2)
[2022-09-17 22:10] LABS: Reflex Troponin-HS? (from REC) Y
[2022-09-17] MEDS: 0.9% Normal Saline 1,000 ML 999 ML IV (22:23)
[2022-09-17 22:52] LABS: Magnesium 2.3 mg/dL (1.6-2.6); Troponin-I HS 6 pg/mL (3.0-78.0)
--- NOTE | 2022-09-17 23:06 | HP.PCM.HOS_ITS ---
HPI - General General Date of Admission: 09/17/22 Date of Service: 09/17/22 Chief Complaint: L sided weakness, paresthesias, vertigo. HPI Narrative The patient is a 77 y/o M w/ PMHx: Remote history of electrocution, Former tobacco use, Allergic rhinitis, Anxiety and Depression, Obesity, CAD s/p PCI, COPD, CKD stage III unclear subtype, HTN, HLD, Hx TIA (similar prior sxs), Diabetes mellitus type II, recent PCI at [facility] per Dr. Suárez 08/31/2022 with stent deployed to the mid RCA who now represents to the [facility] ED on 09/17/22 with history of chest discomfort described as a tightness reported at both rest and while active as well as intermittent onset of lightheadedness/vertiginous type symptoms/dizziness over the last 2 to 3 days often resolving however starting again on day of presentation at approximately noon and then recurring again at 1830 with at that time also mild chest discomfort as well as onset of left-sided weakness including the upper extremity and lower extremity in addition to mild paresthesias around the left side of the mouth and decreased sensation also to the left side upper and lower extremity with difficulty ambulating prompting EMS call with administration of 4 baby aspirin and Zofran at that time with transi tion to the ED for evaluation. Patient notes with one episode of chest discomfort recently he did have nausea without emesis, diaphoresis and dyspnea. In the ED patient NIH stroke score 7 for facial palsy 1, left arm motor 1, left leg motor 2, limb ataxia 2, sensory 1. Repeat NIH stroke scale 2145 by nursing staff reported at 6 with minor paralysis facial palsy, left arm with drift, left leg with some effort against gravity, sensory with mild to moderate sensory loss. Patient upon ED evaluation reports his chest discomfort as 2 out of 10 in severity. Work-up in the ED included T97.6, heart rate 68, respiratory rate 18, 95% oxygenation on room air, CBC with WC 9.7, hemoglobin 15.6, platelet 177 without marked shift, BMP with BUN/creat 19/1.51, glucose 116, unremarkable coags, troponin 6, chest x-ray with no acute cardiopulmonary findings, EKG with sinus rhythm with no acute evidence of ischemia, CT head with mild periventricular white matter ischemic change with no acute bleed, CTA head and neck with mild atherosclerotic changes of the head and neck without any hemodynamically significant stenosis. [facility] Medical History Atherosclerotic heart disease [place] coronary artery w/angina pectoris CAD (coronary artery disease) 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, stage 3 COPD (chronic obstructive pulmonary disease) Essential hypertension History of COVID-19 History of melanoma Hyperlipidemia Obesity Obstructive sleep apnea Presence of stent in coronary artery (~08/31/22) TIA (transient ischemic attack) Type 2 diabetes mellitus without complications Home Medications aspirin 81 mg tablet,delayed release 81 mg PO DAILY@0800 health maintenance 01/21/17 [History Last Taken 08/31/22] mirtazapine 15 mg tablet (Remeron) 15 mg PO QHS sleep 09/21/18 [History Last Taken 12/19/19] cyanocobalamin (vitamin B-12) 1,000 mcg capsule 1,000 mcg PO DAILY vitamin ##0 06/01/19 [History Last Taken 12/19/19] pantoprazole 40 mg tablet,delayed release 40 mg PO DAILY GERD 12/20/19 [History Last Taken 12/19/19] acetaminophen 325 mg tablet 650 mg PO Q6H PRN PRN Pain 1-02/0901/03/20 [Rx Last Taken Unknown] magnesium oxide 400 mg (241.3 mg magnesium) tablet 800 mg PO DAILY SUPPLEMENT 08/01/21 [History Last Taken Unknown] potassium chloride 20 mEq tablet,extended release(part/cryst) 60 meq PO BID supplement 08/01/21 [History Last Taken Unknown] cetirizine 10 mg tablet 10 mg PO DAILY PRN Allergic Reaction 09/16/21 [History Last Taken Unknown] cholecalciferol (vitamin D3) 25 mcg (1,000 unit) tablet [address] 09/16/21 [History Last Taken Unknown] fluoxetine 40 mg capsule 80 mg PO DAILY DEPRESSION 90 days #180 caps 09/16/21 [History Last Taken Unknown] glimepiride 4 mg tablet [address] 09/16/21 [History Last Taken Unknown] atorvastatin 40 mg tablet 40 mg PO QHS CHOLESTEROL #90 tabs 10/31/21 [Rx Last Taken Unknown] spironolactone 25 mg tablet 25 mg PO DAILY fluid #90 tabs 12/09/21 [Rx Last Taken Unknown] furosemide 40 mg tablet 80 mg PO DAILY diuretic #180 tabs 01/27/22 [Rx Last Taken Unknown] amlodipine 5 mg tablet 5 mg PO BID bp #60 tabs 03/11/22 [Rx Last Taken 08/31/22] metformin 500 mg tablet 500 mg PO BID DM 08/19/22 [History Last Taken 08/30/22] metoprolol tartrate 25 mg tablet 25 mg PO BID BP 08/19/22 [History Last Taken Unknown] nitroglycerin 0.4 mg sublingual tablet 0.4 mg sublingual Q5-15M PRN CHEST PAIN #25 tabs 08/19/22 [Rx Last Taken Unknown] clopidogrel 75 mg tablet See Rx Instructions .Route .COMPLEX 09/17/22 [History Last Taken Unknown] Allergy/AdvReac Type Severity Reaction Status Date / Time No Known Allergies Allergy Verified 08/19/22 10:02 Family History Father Parkinsons disease Prostate cancer Mother Osteoporosis Surgical History History of herniorrhaphy History of percutaneous transluminal coronary angioplasty (08/18/18) History of prostatectomy History of tonsillectomy History of tympanostomy tube placement Hx of cholecystectomy Presence of coronary angioplasty implant and graft (~08/31/22) Social History household members: none Smoking Status: Former smoker quit date: 05/03/98 pack-years: 50 how long ago did patient quit smokin years ago alcohol intake: never substance use type: does not use caffeine: Yes Type: coffee and tea Number of servings: 6 ROS ROS Narrative Admission Review of Systems: CONSTITUTIONAL: No weight loss, fever, chills, + weakness or fatigue. HEENT: + L sided facial paresthesias/weakness. Eyes: No visual loss, blurred vision, double vision or yellow sclerae. Ears, Nose, Throat: No hearing loss, sneezing, congestion, runny nose or sore throat. SKIN: No rash or itching, lesions, wounds. CARDIOVASCULAR: + chest pain, chest pressure or chest discomfort. No palpitations, edema, orthopnea, syncopal events. RESPIRATORY: No shortness of breath, cough or sputum, wheezing, hemoptysis. GASTROINTESTINAL: No anorexia, nausea, vomiting or diarrhea, abdominal pain, melena, BRBPR. GENITOURINARY: No dysuria, frequency, urgency or retention. NEUROLOGICAL: + L sided weakness, paresthesias, facial droop, vertigo/lightheadedness/dizziness. No headache, syncope, paralysis, change in bowel or bladder control, seizure. MUSCULOSKELETAL: + muscle, back pain, joint pain or stiffness. HEMATOLOGIC: + Easy bleeding or bruising. LYMPHATICS: No enlarged nodes. No history of splenectomy. PSYCHIATRIC: + history of depression or anxiety. ENDOCRINOLOGIC: No reports of sweating, cold or heat intolerance. + polydipsia. ALLERGIES: + History of rhinitis. Vital Signs Vital Signs Vital Signs: 09/17/22 19:45 09/17/22 21:17 09/17/22 21:17 Temperature 97.6 F L Temperature Source Temporal Pulse Rate 68 Respiratory Rate 18 12 Blood Pressure Blood Pressure Mean Pulse Ox 95 96 Oxygen Delivery Method Room Air 09/17/22 21:22 09/17/22 21:24 09/17/22 21:29 Temperature 97.6 F L Temperature Source Temporal Pulse Rate 62 62 Respiratory Rate 15 15 Blood Pressure 112/77 112/76 155/79 H Blood Pressure Mean 88 88 104 Pulse Ox 95 95 Oxygen Delivery Method Room Air Room Air 09/17/22 21:38 09/17/22 21:45 Temperature Temperature Source Pulse Rate 65 Respiratory Rate 16 Blood Pressure 155/81 H 112/77 Blood Pressure Mean 105 88 Pulse Ox 94 Oxygen Delivery Method Room Air Weight Weight: 239 lb 13.807 oz Body Mass Index (BMI) 36.4 Physical Exam Narrative Physical Examination: General: Awake, alert, oriented to self, place, month, year although unable initially to give president but then confirmed following, remains cooperative, seated upright in the bed, fatigued appearing. Skin: Normal color, normal turgor, no icterus, no cyanosis. HEENT: AT/NC, EOMI, PERRLA, mildly dry MM, no carotid bruits or JVD noted. Lungs: CTA bilaterally, moderate effort, mild decrease BL bases, no rales, ronchi or wheezing. Heart: Currently regular rate and rhythm; no gallop, rub audible. Abdomen: Soft, obese, NTTP, ND, mildly hyperactive BS, no HSM. Extremities: No cyanosis, no clubbing, mild distal peripheral nonpitting edema which he notes is chronic, better than his chronic baseline. Neurological: Patient awake, alert, oriented as noted, cognitive function improving, nearing baseline intact; pupils equally reactive to light and accom modation, cranial nerves grossly normal although patient still having left-sided decreased sensation to the left face, left upper extremity and left lower extremity, resolved prior noted left facial droop, equivocal blood bilateral Babinski, left upper extremity [id number] abnormal, difficulty performing [id number] left side, right side normal, unable to keep leg up with immediate fall to bed but does have some resistance, strength accordingly moderately to severely globally decreased. Psychiatric: Affect appears fatigued, no acute evidence of depressive or anxiety feelings but does have underlying history and did discuss common to have increased depression following stroke. Results Lab / Micro Data Result Diagrams: 09/17/22 19:55 09/17/22 19:55 Labs: Laboratory Results - last 24 hr 09/17/22 19:55: WBC 9.7, RBC 5.54, Hgb 15.6, Hct 48.9, MCV 88.3, MCH 28.2, MCHC 31.9 L, RDW Std Deviation 45.2 H, RDW Coeff of [place] 14.2, Plt Count 177, MPV 12.6 H, Immature Gran % (Auto) 0.600, Neut % (Auto) 65.6, Lymph % (Auto) 21.2, [place] % (Auto) 10.7 H, Eos % (Auto) 1.5, Baso % (Auto) 0.4, Absolute Neuts (auto) 6.4, Absolute Lymphs (auto) 2.05, Nucleated RBC % 0 09/17/22 19:55: Sodium 141, Potassium 3.7, Chloride 105, Carbon Dioxide 27.0, Anion Gap 9, BUN 19 H, Creatinine 1.51 H, Estim Creat Clear Calc 39.64, Est GFR (MDRD) Af Amer 58 L, Est GFR (MDRD) Non-Af 48 L, BUN/Creatinine Ratio 12.6, Glucose 116 H, Calcium 8.5, Troponin I High Sens 6 09/17/22 21:25: PT 12.3, INR 0.9, APTT 32.1 Radiology Impression Chest X-Ray 09/17/22 19:55 IMPRESSION: No acute cardiopulmonary pathology. Electronically Signed: Alexandr Josue MD at 20:17 EDT , Brain CT 09/17/22 21:04 IMPRESSION: Mild periventricular white matter ischemic change. No acute bleed. If concern for acute infarct MRI recommended. Electronically Signed: Alexandr Josue MD at 21:27 EDT , ADDENDUM: 09/17/22 2135 IMPRESSION: Mild periventricular white matter ischemic change. No acute bleed. If concern for acute infarct MRI recommended. N.B. : The above Results were Read Back by Alexandr Josue MD to Pardeep Hall DO, and understanding confirmed on 09/17/2022 21:28:16 (ET). Electronically Signed: Alexandr Josue MD at 21:27 EDT , Head/Neck CTA 09/17/22 21:04 IMPRESSION: Mild atherosclerotic changes of the head and neck without hemodynamically significant stenosis utilizing NASCETcriteria. Electronically Signed: Alexandr Josue MD at 21:49 EDT , ADDENDUM: 09/17/22 2201 IMPRESSION: Mild atherosclerotic changes of the head and neck without hemodynamically significant stenosis utilizing NASCETcriteria. N.B. : The above Results were Read Back by Alexandr Josue MD to Pardeep Hall DO, and understanding confirmed on 09/17/2022 21:54:37 (ET). Electronically Signed: Alexandr Josue MD at 21:49 EDT , Assessment & Plan Assessment/Plan (1) CVA (cerebral vascular accident): PLAN: Plan The patient is a 77 y/o M w/ PMHx: Remote history of electrocution, Former tobacco use, Allergic rhinitis, Anxiety and Depression, Obesity, CAD s/p PCI, COPD, CKD stage III unclear subtype, HTN, HLD, Hx TIA (similar prior sxs), Diabetes mellitus type II, recent PCI at [facility] per Dr. Suárez 08/31/2022 with stent deployed to the mid RCA who now represents to the [facility] ED on 09/17/22 with history of chest discomfort described as a tightness reported at both rest and while active as well as intermittent onset of lightheadedness/vertiginous type symptoms/dizziness over the last 2 to 3 days often resolving however starting again on day of presentation at approximately noon and then recurring again at 1830 with at that time also mild chest discomfort as well as onset of left-sided weakness including the upper extremity and lower extremity in addition to mild paresthesias around the left side of the mouth and decreased sensation also to the left side upper and lower extremity with difficulty ambulating prompting EMS call with administration of 4 baby aspirin and Zofran at that time with transition to the ED for evaluation. #1. Vertigo, left-sided weakness and paresthesia concerning for CVA: Patient was administered 4 baby aspirin on route per EMS. Will admit to PCU, will obtain MRI Brain, CTA head and neck obtained in the ED as noted, ECHO, PT/OT/Speech/Nutrition evaluation per protocol. Will allow permissive HTN, maintain on asa/plavix, statin. Will obtain Mag, TSH, FLP, HgbA1c. Maintain on fall and aspiration precautions. We will have as needed meclizine for vertiginous symptoms. Once work-up obtained would plan to reinvolve neurology for further assessment especially given patient has already been on dual antiplatelet therapy. #2 Chest Pain: EKG in ED with sinus rhythm with no acute evidence of ischemia, CXR w/ no acute cardiopulmonary findings, initial trop 6. Will place on a monitored bed to assure no acute myocardial infarction with serial cardiac enzymes and EKGs to be cautious with recent PCI intervention as noted. We will continue medical therapy and evaluation as noted #1. If needed may always involve cardiology service but defer at this time. #3. CAD: Status post PCI with most recent noted 08/31/2022 with stent deployed to the mid RCA per Dr. Suárez, will continue aspirin, Plavix, statin, temporally holding patient hypertensive regimen given acute presentation number 1 for permissive hypertension, resume once appropriate. 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 Procedure aborted. 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 Hypertension: Given acute presentation we will maintain permissive hypertension with as needed agents per stroke protocol. #5. Hyperlipidemia: Continue home statin regimen. AM FLP. #6. Chronic Kidney Disease Stage III, unclear subtype: Admission BUN/Cr 19/1.51, baseline renal function primarily 1.1-1.4, repeat BMP in AM. #7. Diabetes mellitus type II: Hold oral home regimen, hemoglobin A1c pending given acute presentation as noted #1, ADA diet, accu checks w/ ISS, nutrition consulted for education and teaching given #1. #8. Anxiety and depression: We will continue patient home fluoxetine and mirtazapine regimen, encourage continued outpatient evaluation and follow-up as well as counseling. #9. Obesity: Weight loss and lifestyle changes encouraged. #10. Allergic rhinitis: We will continue patient home cetirizine regimen. #11. GERD: We will continue patient on PPI. #12. Former tobacco use: Encourage continued tobacco cessation. #13. Chronic COPD: Not on any chronic inhalers nor chronic oxygen supplementation, will maintain on PRN albuterol, HOB, IS parameters. #14. MATTHEW: CPAP nightly. #15. DVT prophylaxis: Lovenox. #16. CODE status: Full Code. Admission Evaluation Time spent evaluating chart, patient history, patient evaluation, care planning and discussion with specialists: 75 minutes. Charges/Coding Visit Charges Inpatient E&M: 07383 Init Hosp L3
--- NOTE | 2022-09-17 23:29 | EKG12_ITS ---
Test Reason : CP ADMISSION Blood Pressure : / mmHG Vent. Rate : 054 BPM Atrial Rate : 054 BPM P-R Int : 190 ms QRS Dur : 090 ms QT Int : 484 ms P-R-T Axes : 059 074 054 degrees QTc Int : 458 ms Sinus bradycardia Otherwise normal ECG When compared with ECG of 17-SEP-2022 19:53, MANUAL COMPARISON REQUIRED, DATA IS UNCONFIRMED Confirmed by NAOMIE PALOMO, PARVEZ ([id number]), writer editor VERONICA SCOTT ([id number]) on 09/18/2022 1:10:48 PM Referred By: PAPITO Confirmed By:PARVEZ AKBAR MD
--- NOTE | 2022-09-17 23:29 | MRI_ITS ---
STUDY: MRI BRAIN WITHOUT CONTRAST REASON FOR EXAM: Male, 77 years old. CVA, LIGHTHEADEDNESS, WERTIGO, L SIDED WEAKNESS TECHNIQUE: Standardized multiplanar fat and water weighted pulse sequences were obtained. COMPARISON: MRI of the brain dated November 18, 2020 CT of the brain may be 2022. FINDINGS: Mild atrophy and periventricular white matter ischemic change without mass effect or restricted diffusion.. Normal bilateral basal ganglia. Normal thalami. There is no extra-axial fluid accumulation. Normal flow voids within the major intracranial circulation suggesting patency by spin echo criteria. Normal sella turcica, pituitary gland, infundibular stalk, optic chiasm and hypothalamus. Normal tectal plate and pineal gland. Normal midbrain, yasmeen and medulla. Normal cerebellum. Normal basal cisterns. Normal bilateral temporal bones. Normal bilateral internal auditory canals. Increased signal noted within the mastoid air cells bilaterally which may be consistent with inflammatory changes. No demonstrated orbital abnormality, within the constraints of a routine brain study. Minor mucosal thickening of the bilateral ethmoid air cells and right maxillary sinus. Normal calvarium and skull base. Normal visualized soft tissue structures. Normal visualized upper cervical spine. No significant change since prior exam MRI/Brain without Contrast IMPRESSION: Mild atrophy and periventricular white matter ischemic change without evidence for acute infarct.. Electronically Signed: Alexandr Josue MD at 16:33 EDT ,
--- NOTE | 2022-09-17 23:29 | ECHOCS_ITS ---
Reason For Study: TIA/CVA Procedure This was a 2D Doppler, Color Flow transthoracic echocardiogram. The study was technically difficult. Contrast injection was performed. Exam performed portable in patient room. Left Ventricle Mildly dilated left ventricle. The estimated ejection fraction is 50-55 %. Right Ventricle Normal right ventricle. Normal systolic function. Atria Normal left atrium. Normal right atrium. Mitral Valve The mitral valve is structurally normal. No prolapse or stenosis seen. Trivial mitral valve insufficiency. Tricuspid Valve Normal tricuspid valve. Trivial tricuspid valve insufficiency. Aortic Valve Mild diffuse aortic valve calcification. Pulmonic Valve The pulmonic valve is not well visualized. Great Vessels Normal aortic root. Pericardium/Pleural No pericardial effusion. Medication Diluted definity 2ml given slow IV push to enhance endocardial definition. Performed a rapid injection of agitated mix of 9 cc saline and 1cc air to assess for atrial septal defect. MMode/2D Measurements & Calculations LVIDd: 5.3 cm IVSd: 1.0 cm Ao root diam: 3.0 cm LVIDs: 3.4 cm LVPWd: 1.1 cm FS: 37.1 % LAV(MOD-sp4): 49.9 ml LVAd ap4: 32.3 cm2 SV(MOD-sp4): 58.9 ml LVLd ap4: 7.9 cm EDV(MOD-sp4): 111.0 ml EDV(sp4-el): 112.7 ml LVAs ap4: 20.5 cm2 LVLs ap4: 6.7 cm ESV(MOD-sp4): 52.1 ml ESV(sp4-el): 53.5 ml EF(MOD-sp4): 53.1 % EF(sp4-el): 52.5 % SV(sp4-el): 59.2 ml LA A4 area: 18.1 cm2 LA dimension(2D): 3.3 cm RA A4 area: 12.8 cm2 Time Measurements MV dec time: 0.23 sec Doppler Measurements & Calculations MV E max nicho: 81.0 cm/sec Lat Peak E' Nicho: 14.0 cm/sec Med Peak E' Nicho: 9.8 cm/sec MV A max nicho: 74.8 cm/sec E/E' lat: 5.8 E/E' med: 8.3 MV E/A: 1.1 MV V2 max: 85.5 cm/sec MV dec slope: 349.1 cm/sec2 Ao V2 max: 171.6 cm/sec MV max P.9 mmHg Ao max P.8 mmHg MV V2 mean: 47.4 cm/sec Ao V2 mean: 114.9 cm/sec MV mean P.1 mmHg Ao mean P.1 mmHg MV V2 VTI: 32.0 cm Ao V2 VTI: 42.1 cm AV (velocity ratio): 0.68 LV V1 max: 132.1 cm/sec LV V1 max P.0 mmHg LV V1 mean P.6 mmHg LV V1 mean: 86.1 cm/sec LV V1 VTI: 28.8 cm ECHO/Echo Complete W/ Contrast Interpretation Summary The estimated ejection fraction is 50-55 %. Low normal ejection fraction No significant abnormality noted from previous echo on April 21, 2022 Ordering Physician: Alka Leo Referring Physician: Victor M Luke Performed By: Eulalia Torres RCS
[2022-09-18] VITALS (13 sets, daily range): BP systolic 115–140; BP diastolic 55–75; PULSE 48–70; RESP 14–20; TEMP 36.2–36.7; O2SAT 93–99; BMI 34.9
[2022-09-18] MEDS: 0.9% Normal Saline 1,000 ML 100 ML IV (00:40)
[2022-09-18] MEDS: Ondansetron 4 MG/2 ML Vial IV ×2 (00:41→09:04)
[2022-09-18] MEDS: Acetaminophen 325 MG Tablet 650 MG PO (00:43)
[2022-09-18] MEDS: Meclizine HCl 25 MG Tablet PO ×2 (00:43→10:37)
[2022-09-18] MEDS: Mirtazapine 15 MG Tablet PO ×2 (00:44→21:22)
[2022-09-18] MEDS: Atorvastatin Calcium 40 MG Tablet PO ×2 (00:44→21:21)
[2022-09-18 00:50] LABS: Troponin-I HS 7 pg/mL (3.0-78.0)
[2022-09-18 01:21] LABS: Bedside Glucose 88 mg/dL (74-106)
[2022-09-18 02:36] LABS: Troponin-I HS 7 pg/mL (3.0-78.0)
[2022-09-18 06:22] LABS: Absolute Lymphocyte Count 1.83 X10^3/uL (0.83-4.51); Absolute Neutrophil Count 4.3 X10^3/uL (2.0-7.7); Basophil# 0.02 X10^3/uL; Basophil% 0.3 % (0-1); Eosinophil# 0.14 X10^3/uL; Hematocrit 41.8 % (40-54); Hemoglobin 13.2 g/dL (13.0-16.5); Lymphocyte # 1.83 X10^3/ul (0.83-4.51); Lymphocyte % 26.1 % (19-41); Mean Corp Hgb Conc 31.6 g/dL (32-36); Mean Corpuscular Hgb 28.4 pg (27.0-32.0); Mean Corpuscular Volume 90.1 fL (80-94); Mean Platelet Vol. 12.3 fl (6.2-12.0); Monocyte# 0.73 X10^3/uL; Monocyte% 10.4 % (0-10); NRBC Flagged by Analyzer 0 % (0-5); Neutrophil # 4.28 X10^3/uL (2.7-7.7); Neutrophil % 60.9 % (47-70); Platelet Count 131 K/mm3 (150-450); RBC Distribution Width CV 14.4 % (11.6-14.6); RBC Distribution Width SD 46.9 fl (35.1-43.9); Red Blood Count 4.64 M/mm3 (4.6-6.2)
[2022-09-18 06:51] LABS: AST(SGOT) 21 U/L (15-37); Alanine Aminotransfer ALT/SGPT 31 U/L (16-61); Albumin, Serum 2.9 g/dL (3.2-5.0); Alkaline Phosphatase 113 U/L (45-117); Anion Gap 8 (5-15); BUN 17 mg/dL (7-18); BUN/Creat Ratio 13.4 RATIO (10-20); Calcium,Total 7.6 mg/dL (8.5-10.1); Chloride 108 mmol/L (98-107); Cholesterol 114 mg/dL (200); Creatinine, Serum 1.27 mg/dL (0.70-1.30); EST Glomerular Filtration Rate 58 mL/min (>60); Est Glom Filt Rate - Afr Amer 71 mL/min (>60); Estimated Creatinine Clearance 47.13 ml/min; Glucose 87 mg/dL (74-106); High Density Lipoprotein 36 mg/dL; Potassium 3.5 mmol/L (3.5-5.1); Protein, Total 5.9 g/dL (6.4-8.2); Sodium Level 142 mmol/L (136-145); Thyroid Stim Hormone (TSH) 3.64 uIU/mL (0.358-3.74); Triglycerides 174 mg/dL; Troponin-I HS 8 pg/mL (3.0-78.0); Very Low Density Lipoprotein 35 mg/dL (5-40)
[2022-09-18 07:20] LABS: Bedside Glucose 88 mg/dL (74-106)
[2022-09-18 07:32] LABS: Hemoglobin A1c 7.7 % (3.8-5.6)
--- NOTE | 2022-09-18 08:00 | PN.HOSP_ITS ---
Reason for Visit Reason for Visit: Diagnoses Cerebral infarction, unspecified (09/17/22) Subjective Subjective Still feeling dizzy with any subtle motion. Still is unable to move his left leg. Has had vertigo intermittently but never had issues with weakness. Objective Data Objective Data Vital Signs: Vital Signs Temp Pulse Resp BP Pulse Ox O2 Del Method FiO2 36.3 C L 48 L 18 115/66 94 CPAP 21 09/18/22 06:25 09/18/22 06:25 09/18/22 06:25 09/18/22 06:25 09/18/22 06:25 09/18/22 06:25 09/18/22 04:50 Oxygen Delivery Method CPAP Weight: 104.4 kg Body Mass Index (BMI) 34.9 Intake & Output: Intake and Output for Last 24 Hours 09/16/22 09/17/22 09/18/22 23:59 23:59 23:59 Intake Total 1000 / 1000 Output Total 1000 / 1000 Balance 1000 / 1000 -1000 / -1000 Lab / Micro Data Result Diagrams: 09/18/22 05:45 09/18/22 05:45 Labs: Laboratory Results - last 24 hr 09/17/22 19:55: WBC 9.7, RBC 5.54, Hgb 15.6, Hct 48.9, MCV 88.3, MCH 28.2, MCHC 31.9 L, RDW Std Deviation 45.2 H, RDW Coeff of Adrian 14.2, Plt Count 177, MPV 12.6 H, Immature Gran % (Auto) 0.600, Neut % (Auto) 65.6, Lymph % (Auto) 21.2, Russell % (Auto) 10.7 H, Eos % (Auto) 1.5, Baso % (Auto) 0.4, Absolute Neuts (auto) 6.4, Absolute Lymphs (auto) 2.05, Nucleated RBC % 0 09/17/22 19:55: Sodium 141, Potassium 3.7, Chloride 105, Carbon Dioxide 27.0, Anion Gap 9, BUN 19 H, Creatinine 1.51 H, Estim Creat Clear Calc 39.64, Est GFR (MDRD) Af Amer 58 L, Est GFR (MDRD) Non-Af 48 L, BUN/Creatinine Ratio 12.6, Glucose 116 H, Calcium 8.5, Troponin I High Sens 6 09/17/22 21:25: PT 12.3, INR 0.9, APTT 32.1 09/17/22 22:20: Magnesium 2.3, Troponin I High Sens 6 09/17/22 23:55: Troponin I High Sens 7 09/18/22 00:18: POC Glucose 88 09/18/22 02:00: Troponin I High Sens 7 09/18/22 05:45: WBC 7.0, RBC 4.64, Hgb 13.2, Hct 41.8, MCV 90.1, MCH 28.4, MCHC 31.6 L, RDW Std Deviation 46.9 H, RDW Coeff of Adrian 14.4, Plt Count 131 L, MPV 12.3 H, Immature Gran % (Auto) 0.300, Neut % (Auto) 60.9, Lymph % (Auto) 26.1, Russell % (Auto) 10.4 H, Eos % (Auto) 2.0, Baso % (Auto) 0.3, Absolute Neuts (auto) 4.3, Absolute Lymphs (auto) 1.83, Nucleated RBC % 0 09/18/22 05:45: Sodium 142, Potassium 3.5, Chloride 108 H, Carbon Dioxide 26.0, Anion Gap 8, BUN 17, Creatinine 1.27, Estim Creat Clear Calc 47.13, Est GFR (MDRD) Af Amer 71, Est GFR (MDRD) Non-Af 58 L, BUN/Creatinine Ratio 13.4, Glucose 87, Calcium 7.6 L, Total Bilirubin 1.20 H, AST 21, ALT 31, Alkaline Phosphatase 113, Troponin I High Sens 8, Total Protein 5.9 L, Albumin 2.9 L, Globulin 3.0, Albumin/Globulin Ratio 1.0, Triglycerides 174, Cholesterol 114, LDL Cholesterol 43, VLDL Cholesterol 35, HDL Cholesterol 36 L, TSH 3.64 09/18/22 05:45: Hemoglobin A1c 7.7 H 09/18/22 06:21: POC Glucose 88 Radiography Diagnostic Testing: Radiology Impression Chest X-Ray 09/17/22 19:55 IMPRESSION: No acute cardiopulmonary pathology. Electronically Signed: Alexandr Josue MD at 20:17 EDT , Brain CT 09/17/22 21:04 IMPRESSION: Mild periventricular white matter ischemic change. No acute bleed. If concern for acute infarct MRI recommended. Electronically Signed: Alexandr Josue MD at 21:27 EDT , ADDENDUM: 09/17/22 2135 IMPRESSION: Mild periventricular white matter ischemic change. No acute bleed. If concern for acute infarct MRI recommended. N.B. : The above Results were Read Back by Alexandr Josue MD to Pardeep Hall DO, and understanding confirmed on 09/17/2022 21:28:16 (ET). Electronically Signed: Alexandr Josue MD at 21:27 EDT , Head/Neck CTA 09/17/22 21:04 IMPRESSION: Mild atherosclerotic changes of the head and neck without hemodynamically significant stenosis utilizing NASCETcriteria. Electronically Signed: Alexandr Josue MD at 21:49 EDT , ADDENDUM: 09/17/22 2201 IMPRESSION: Mild atherosclerotic changes of the head and neck without hemodynamically significant stenosis utilizing NASCETcriteria. N.B. : The above Results were Read Back by Alexandr Josue MD to Pardeep Hall DO, and understanding confirmed on 09/17/2022 21:54:37 (ET). Electronically Signed: Alexandr Josue MD at 21:49 EDT , Physical Exam Const alert and no apparent distress HEENT head/scalp atraumatic Eyes Eyes Narrative: Subtle left lateral vertigo but unable to assess right little vertigo as patient started feeling dizzy kept his eyes closed. Resp normal respiratory effort, no retractions, no use of accessory muscles and clear to auscultation bilaterally Cardio regular rate, regular rhythm, S1 normal heart sound and S2 normal heart sound GI normal to inspection, nondistended, normoactive bowel sounds, soft to palpation and non-tender Extremity normal to inspection Neuro oriented x3 and CN's II-XII intact bilaterally Assessment & Plan Assessment/Plan (1) CVA (cerebral vascular accident): PLAN: Vertigo, left-sided weakness and paresthesia concerning for CVA: Patient was administered 4 baby aspirin on route per EMS. MRI Brain, echo pending CTA head and neck unrearkable PT/OT/Speech/Nutrition evaluation per protocol. Will allow permissive HTN, maintain on asa/plavix, statin. Will obtain Mag, TSH, FLP, HgbA1c. PRN meclizine for vertiginous symptoms. (2) Chest pain: PLAN: Angina, stable/unstable, acute coronary syndrome, myocardial infarction ruled out troponin series negative. No additional cardiac work-up necessary. Status post PCI with most recent noted 08/31/2022 with stent deployed to the mid RCA per Dr. Suárez, will continue aspirin, Plavix, statin, temporally holding patient hypertensive regimen given acute presentation number 1 for permissive hypertension, resume once appropriate. 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 Procedure aborted. 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 * Hyperlipidemia: Continue statin. AM FLP WNL * Chronic Kidney Disease Stage III, unclear subtype: Admission BUN/Cr 19/1.51, baseline renal function primarily 1.1-1.4, repeat BMP in AM. * Diabetes mellitus type II: Hold oral home regimen, hemoglobin A1c pending given acute presentation as noted #1, ADA diet, accu checks w/ ISS, nutrition consulted for education * Anxiety and depression: We will continue patient home fluoxetine and mirtazapine regimen, encourage continued outpatient evaluation and follow-up as well as counseling. * Obesity * Allergic rhinitis: continue cetirizine * GERD: We will continue patient on PPI. * Former tobacco use: Encourage continued tobacco cessation. * COPD: Not on any chronic inhalers nor chronic oxygen supplementation, will maintain on PRN albuterol, HOB, IS parameters. * MATTHEW: CPAP nightly. DVT prophylaxis: Lovenox. CODE status: Full Code. Charges/Coding Visit Charges Inpatient E&M: 69420 Subs Hosp L2
[2022-09-18] MEDS: Aspirin E.C. 81 MG Tablet PO (08:20)
[2022-09-18] MEDS: Pantoprazole Sodium 40 MG Tablet PO (08:20)
[2022-09-18] MEDS: Fluoxetine HCl 40 MG CAPSULE 80 MG PO (08:20)
[2022-09-18] MEDS: Enoxaparin 40 MG/0.4 ML Syringe SC (08:20)
[2022-09-18] MEDS: Magnesium Chloride 64 MG Delay Rel.Tablet 256 MG PO (08:21)
[2022-09-18] MEDS: Clopidogrel Bisulfate 75 MG Tablet PO (08:21)
[2022-09-18] MEDS: proCHLORPERazine 10 MG/2 ML Vial 5 MG IV (10:40)
[2022-09-18] MEDS: Insulin Lispro 100 UNIT/ML INSULN.PEN SC ×3 (11:48→21:21)
--- NOTE | 2022-09-18 11:55 | CASEMGMT ---
RN?CM?ENDODONTIST?CM?to room to meet with patient for initial transition planning/care coordination?assessment.?RN?CM?introduced self and role at [facility].? Pt voices understanding and consents to?assessment?at this time.? Pt resting in bed in no distress at this time.? Pt is A/O at this time and answers all questions appropriately.?? Care providers, pharmacy, and demographics verified/updated at this time. PCP: Dr Luke Specialists: Dr Persaud-pulmonology, [facility]/cardiology Preferred Pharmacy: [facility] Insurance: MCR, MMO Prescription Benefit:?Yes Living Will/HPOA:?Has done both LW and HCPOA, who is his and both are on file @ [facility] LNOK: , [place]. 2 dtrs: Shannon and Dawna Living Arrangements: Lives w/ in one-story home w/one small step to enter. Indep @ baseline w/ADL's and IADL's and manages his own medications. Transportation:?Pt states drives self and states no transportation concerns at this time.? also drives. DME: States has the following DME:? shower chair available but does not use, RTS, cane, lift chair, grab bars, pulse ox, CPAP, and glucometer. ?Pt states no need for further DME at this time.? HHC/SNF: Hx [facility] RU and [facility] HHC. Discussed SNF/RU vs HHC vs OP therapy. PT/OT evals are pending. Pt states his left side does feel weak and if RU is recommended, he would like to go to [facility] RU and declines list of other options. If HHC is recommended, he would like [facility] HHC and declines other options. Discussed home-bound criteria for HHC. Pt states if is not homebound, then would like a script for OP therapy. CM?to follow for any further discharge planning/needs.? Pt voices no further concerns/needs at this time.? Advised pt to ask for?CM?if any further questions/concerns/needs arise.? Voices understanding. PLAN:??TBD. [facility] RU/SNF vs HHC vs OP therapy. PT/OT evals pending. Ab EUBANKSN?RN?CM
[2022-09-18 12:25] LABS: Bedside Glucose 202 mg/dL (74-106)
[2022-09-18] MEDS: LORazepam 2 MG/ML Syringe IV (14:01)
--- NOTE | 2022-09-18 15:56 | CASEMGMT ---
SALOMON reviewed patient's therapy notes and therapy is recommending Inpatient Rehab Unit. Per RN CM patient requested [facility] Acute Rehab Unit as he has been there before. SALOMON made referral to [facility] via [facility]. Await response. SALOMON also spoke with patient and his family letting them know about therapy's recommendation for acute rehab unit. Patient confirmed he would like to go to [facility] Acute Reahb. SALOMON let them know SALOMON sent a referral. Jody MARTINEZ
[2022-09-18 17:10] LABS: Bedside Glucose 166 mg/dL (74-106)
--- NOTE | 2022-09-18 21:30 | NURSING ---
Assumed care of pt at this time
[2022-09-18] MEDS: MELATONIN 3 MG TABLET PO (21:39)
[2022-09-18] MEDS: 0.9% Saline Lock 10 ML Syringe IV (21:40)
[2022-09-18 22:05] LABS: Bedside Glucose 156 mg/dL (74-106)
[2022-09-19] VITALS (8 sets, daily range): BP systolic 126–145; BP diastolic 66–80; PULSE 48–76; RESP 16–18; TEMP 36.5–36.7; O2SAT 90–96; BMI 34.9
--- NOTE | 2022-09-19 05:04 | CPS ---
Pt has nasal mask for cpap, mouth dropped open, creates big leak, spo2 drops some. added 30% to compensate for leak.
[2022-09-19 06:55] LABS: Bedside Glucose 115 mg/dL (74-106)
--- NOTE | 2022-09-19 08:35 | PN.HOSP_ITS ---
Reason for Visit Reason for Visit: Diagnoses Cerebral infarction, unspecified (09/17/22) Chest pain, unspecified (09/17/22) Subjective Subjective Complains of ongoing dizziness with right arm and leg weakness. Objective Data Objective Data Vital Signs: Vital Signs Temp Pulse Resp BP Pulse Ox O2 Del Method FiO2 36.6 C 50 L 18 134/74 H 96 CPAP 21 09/19/22 05:30 09/19/22 05:30 09/19/22 05:30 09/19/22 05:30 09/19/22 05:30 09/19/22 05:30 09/19/22 01:30 Oxygen Delivery Method CPAP Weight: 104.4 kg Body Mass Index (BMI) 34.9 Intake & Output: Intake and Output for Last 24 Hours 09/17/22 09/18/22 09/19/22 23:59 23:59 23:59 Intake Total 1000 / 1000 1840 / 1840 240 / 240 Output Total 2200 / 2200 400 / 400 Balance 1000 / 1000 -360 / -360 -160 / -160 Lab / Micro Data Result Diagrams: 09/18/22 05:45 09/18/22 05:45 Labs: Laboratory Results - last 24 hr 09/18/22 11:41: POC Glucose 202 H 09/18/22 16:40: POC Glucose 166 H 09/18/22 21:19: POC Glucose 156 H 09/19/22 06:35: POC Glucose 115 H Radiography Diagnostic Testing: Radiology Impression Brain MRI 09/17/22 23:29 IMPRESSION: Mild atrophy and periventricular white matter ischemic change without evidence for acute infarct.. Electronically Signed: Alexandr Josue MD at 16:33 EDT , Echocardiogram 09/17/22 23:29 Interpretation Summary The estimated ejection fraction is 50-55 %. Low normal ejection fraction No significant abnormality noted from previous echo on April 21, 2022 Ordering Physician: Alka Leo Referring Physician: Victor M Luke Performed By: Eulalia Torres RCS Physical Exam Const alert and no apparent distress HEENT head/scalp atraumatic and moist oral mucous membranes Neuro oriented x3 Neuro Narrative: Muscle strength 5 out of 5 in right upper and right lower extremity. Patient on examination of his left side would have what appears to be some giveaway w eakness with his left arm and leg which would be more noticeable when he was distracted. Assessment & Plan Assessment/Plan (1) CVA (cerebral vascular accident): PLAN: Vertigo, left-sided weakness and paresthesia concerning for CVA: Patient was administered 4 baby aspirin on route per EMS. MRI Brain showed mild atrophy and periventricula whiter matter ischemic changes w/o acute infarct Echo EF 50-55% CTA head and neck unrearkable PT/OT/Speech/Nutrition evaluation per protocol. Will allow permissive HTN, maintain on asa/plavix, statin. Will obtain Mag, TSH, FLP, HgbA1c. PRN meclizine for vertiginous symptoms. 09/19: Still with left-sided weakness but his exam appears to be inconsistent and almost with some giveaway weakness. I did asked the patient if he is having some issues at home and he denied any overt ager stressors. I am concerned that this could be a possible conversion disorder or even psychosomatic. We will check an MRI of his cervical spine to see if there is some pathology. (2) Chest pain: PLAN: Angina, stable/unstable, acute coronary syndrome, myocardial infarction ruled out troponin series negative. No additional cardiac work-up necessary. Status post PCI with most recent noted 08/31/2022 with stent deployed to the mid RCA per Dr. Suárez, will continue aspirin, Plavix, statin, temporally holding patient hypertensive regimen given acute presentation number 1 for permissive hypertension, resume once appropriate. 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 Procedure aborted. 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 * Hyperlipidemia: Continue statin. AM FLP WNL * Chronic Kidney Disease Stage III, unclear subtype: Admission BUN/Cr 21/05.51, baseline renal function primarily 1.1-1.4, repeat BMP in AM. * Diabetes mellitus type II: Hold oral home regimen, hemoglobin A1c pending given acute presentation as noted #1, ADA diet, accu checks w/ ISS, nutrition consulted for education * Anxiety and depression: We will continue patient home fluoxetine and mirtaz apine regimen, encourage continued outpatient evaluation and follow-up as well as counseling. * Obesity * Allergic rhinitis: continue cetirizine * GERD: We will continue patient on PPI. * Former tobacco use: Encourage continued tobacco cessation. * COPD: Not on any chronic inhalers nor chronic oxygen supplementation, will maintain on PRN albuterol, HOB, IS parameters. * MATTHEW: CPAP nightly. DVT prophylaxis: Lovenox. CODE status: Full Code. Charges/Coding Visit Charges Inpatient E&M: 63417 Subs Hosp L2
[2022-09-19] MEDS: Pantoprazole Sodium 40 MG Tablet PO (09:43)
[2022-09-19] MEDS: Magnesium Chloride 64 MG Delay Rel.Tablet 256 MG PO (09:43)
[2022-09-19] MEDS: Fluoxetine HCl 40 MG CAPSULE 80 MG PO (09:43)
[2022-09-19] MEDS: Clopidogrel Bisulfate 75 MG Tablet PO (09:43)
[2022-09-19] MEDS: Enoxaparin 40 MG/0.4 ML Syringe SC (09:43)
[2022-09-19] MEDS: Aspirin E.C. 81 MG Tablet PO (09:43)
[2022-09-19] MEDS: Insulin Lispro 100 UNIT/ML INSULN.PEN SC ×2 (12:04→17:40)
[2022-09-19] MEDS: Meclizine HCl 25 MG Tablet PO (12:05)
[2022-09-19] MEDS: Glucerna Shake 120 ML LIQUID PO (12:05)
--- NOTE | 2022-09-19 12:15 | MRI_ITS ---
EXAM: MR CERVICAL SPINE WITHOUT INTRAVENOUS CONTRAST CLINICAL INDICATION: left sided weakness TECHNIQUE: Multiplanar and multisequence MR images of the cervical spine without intravenous contrast were performed. COMPARISON: 12/21/2019. FINDINGS: VERTEBRAE: Marrow signal is normal. Prior anterior cervical discectomy and fusion (ACDF) C4-C6. Normal alignment. Normal craniocervical junction and cervicothoracic junction. No spondylolisthesis. There is preservation of the normal cervical lordosis. SPINAL CORD: Unremarkable in signal and morphology. SOFT TISSUES: Unremarkable. No prevertebral soft tissue swelling. LYMPH NODES: Unremarkable. There is no cervical adenopathy. DISCS/SPINAL CANAL/NEURAL FORAMINA: No demonstrated fracture. C2-3: Normal disc height and morphology. Normal central canal. Foraminal stenosis due to facet hypertrophy. C3-4: Normal disc height and morphology. Normal central canal. Severe foraminal stenosis due to uncinate and facet hypertrophy. C4-5: Prior ACDF with disc spacer. No canal stenosis. Mild foraminal encroachment due to facet hypertrophy. C5-6: Prior ACDF with disc spacer. No canal stenosis. Mild foraminal encroachment due to facet hypertrophy. C6-7: Mild disc space narrowing. No disc protrusion or canal stenosis. Severe foraminal stenosis due to uncinate hypertrophy. C7-T1: Normal disc height and morphology. Normal central canal. Foramina are patent. MRI/Spine Cervical (Routine) IMPRESSION: No disc protrusion or canal stenosis. Severe foraminal stenosis at C3-4 and C6-7. No significant change from the prior study. Postsurgical changes C4-C6. Electronically Signed: Candida Brand MD at 20:47 EDT Reading Location ID and State: [id number] / Tel , Service support ,
[2022-09-19] MEDS: LORazepam 2 MG/ML Syringe IV (12:34)
[2022-09-19 13:30] LABS: Bedside Glucose 231 mg/dL (74-106)
--- NOTE | 2022-09-19 13:31 | NURSING ---
MRI from 1245 to 1315. Pulse ox 90%-93% on room air during testing. Tolerated without difficulty.
--- NOTE | 2022-09-19 14:58 | NURSING ---
[facility] late due to pt being at MRI.
--- NOTE | 2022-09-19 15:52 | CT_ITS ---
STUDY: CT BRAIN WITHOUT CONTRAST REASON FOR EXAM: Male, 77 years old. NIH increase RADIATION DOSAGE (If Supplied By Facility): CTDIvol = ( 44.99 ) mGy, DLP = ( 796.11 ) mGycm TECHNIQUE: Transaxial CT imaging of the brain was performed without administration of intravenous contrast material. Individualized dose optimization techniques were used for this CT. COMPARISON: 09/17/2022. FINDINGS: Normal soft tissue structures. Normal calvarium. Normal size ventricles and extra-axial spaces for the patient''s age. There are areas of decreased attenuation within the white matter tracts of the supratentorial brain, consistent with microvascular disease changes. There is no intracranial hemorrhage. No acute territorial infarct. Trace mucosal thickening in the right maxillary sinus. CT/Brain/Head without Contrast IMPRESSION: No acute findings. Mild microvascular ischemic changes. Electronically Signed: Candida Brand MD at 17:35 EDT Reading Location ID and State: [id number] / Tel , Service support ,
[2022-09-19 18:16] LABS: Bedside Glucose 161 mg/dL (74-106)
[2022-09-19] MEDS: 0.9% Saline Lock 10 ML Syringe IV (21:55)
[2022-09-19] MEDS: Atorvastatin Calcium 40 MG Tablet PO (21:55)
[2022-09-19] MEDS: Mirtazapine 15 MG Tablet PO (21:55)
[2022-09-19] MEDS: MELATONIN 3 MG TABLET PO (21:55)
[2022-09-19 22:31] LABS: Bedside Glucose 118 mg/dL (74-106)
--- NOTE | 2022-09-19 23:37 | CPS ---
Patient refused PAP therapy for the night.
[2022-09-20 03:13] VITALS: BP 119/66; PULSE 59; RESP 16; TEMP 36.5; O2SAT 95
[2022-09-20 04:26] VITALS: BMI 34.8
[2022-09-20 06:45] LABS: Bedside Glucose 138 mg/dL (74-106)
[2022-09-20 08:09] VITALS: O2SAT 94
--- NOTE | 2022-09-20 08:44 | PN.HOSP_ITS ---
Reason for Visit Reason for Visit: Diagnoses Cerebral infarction, unspecified (09/17/22) Chest pain, unspecified (09/17/22) Subjective Subjective Still with left sided weakness. Objective Data Objective Data Vital Signs: Vital Signs Temp Pulse Resp BP Pulse Ox O2 Del Method FiO2 36.5 C L 59 L 16 119/66 94 Room Air 09/20/22 03:13 09/20/22 03:13 09/20/22 03:13 09/20/22 03:13 09/20/22 08:09 09/20/22 08:09 09/19/22 01:30 Oxygen Delivery Method Room Air Weight: 104 kg Body Mass Index (BMI) 34.8 Intake & Output: Intake and Output for Last 24 Hours 09/18/22 09/19/22 09/20/22 23:59 23:59 23:59 Intake Total 1840 / 1840 1510 / 1510 Output Total 2200 / 2200 2150 / 2150 1000 / 1000 Balance -360 / -360 -640 / -640 -1000 / -1000 Lab / Micro Data Result Diagrams: 09/18/22 05:45 09/18/22 05:45 Labs: Laboratory Results - last 24 hr 09/19/22 11:57: POC Glucose 231 H 09/19/22 17:38: POC Glucose 161 H 09/19/22 21:44: POC Glucose 118 H 09/20/22 06:22: POC Glucose 138 H Radiography Diagnostic Testing: Radiology Impression Cervical Spine MRI 09/19/22 12:15 IMPRESSION: No disc protrusion or canal stenosis. Severe foraminal stenosis at C3-4 and C6-7. No significant change from the prior study. Postsurgical changes C4-C6. Electronically Signed: Candida Brand MD at 20:47 EDT Reading Location ID and State: [place] Brian MD Tel , Service support , Brain CT 09/19/22 15:52 IMPRESSION: No acute findings. Mild microvascular ischemic changes. Electronically Signed: Candida Brand MD at 17:35 EDT Reading Location ID and State: Estelle Brian MD Tel , Service support , Physical Exam Const alert and no apparent distress HEENT head/scalp atraumatic and moist oral mucous membranes Extremity normal to inspection, full ROM and no clubbing, cyanosis or edema Neuro oriented x3 Neuro Narrative: Muscle strength 5-5 in upper extremities bilaterally. 5-5 in the right lower extremity. Left leg when I held up dropped to the bed and then he was able to raise it up. Assessment & Plan Assessment/Plan (1) CVA (cerebral vascular accident): PLAN: Initially suspected given vertigo, left-sided weakness and paresthesia concerning for CVA. However, subsequently his symptoms, though left sided, have been variable and his exam inconsistent, and studies negative for any acute process. Data: * MRI Brain showed mild atrophy and periventricula whiter matter ischemic changes w/o acute infarct * echo EF 50-55% * CTA head and neck unremarkable * MRI cervical spine showed severe spinal stenosis but no cord impingement * repeat head CT negative for acute process. asa/plavix, statin. 09/19: Still with left-sided weakness but his exam appears to be inconsistent and almost with some giveaway weakness. I did asked the patient if he is having some issues at home and he denied any overt ager stressors. I am concerned that this could be a possible conversion disorder or even psychosomatic. We will check an MRI of his cervical spine to see if there is some pathology. 09/20: I discussed with the patient and his daughters at bedside that there are has been no identifiable etiology for his left-sided weakness. I told that I was concerned that this may not be organic and could be psychosomatic. I did have [facility] evaluate and they reviewed the images and data and do not feel there is any neurologic etiology of his symptoms. Daughter is very concerned about his underlying anxiety even before all this and patient is on medications for depression and anxiety. Stated that it may be beneficial to get some counseling to work what ever issues he may be dealing with. (2) Chest pain: PLAN: Angina, stable/unstable, acute coronary syndrome, myocardial infarction ruled out troponin series negative. No additional cardiac work-up necessary. Status post PCI with most recent noted 08/31/2022 with stent deployed to the mid RCA per Dr. Suárez, will continue aspirin, Plavix, statin, temporally holding patient hypertensive regimen given acute presentation number 1 for permissive hypertension, resume once appropriate. 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 Procedure aborted. 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 * Hyperlipidemia: Continue statin. AM FLP WNL * Chronic Kidney Disease Stage III, unclear subtype: Admission BUN/Cr 19/1.51, baseline renal function primarily 1.1-1.4, repeat BMP in AM. * Diabetes mellitus type II: Hold oral home regimen, hemoglobin A1c pending given acute presentation as noted #1, ADA diet, accu checks w/ ISS, nutrition consulted for education * Anxiety and depression: We will continue patient home fluoxetine and mirtazapine regimen, encourage continued outpatient evaluation and follow-up as well as counseling. * Obesity * Allergic rhinitis: continue cetirizine * GERD: We will continue patient on PPI. * Former tobacco use: Encourage continued tobacco cessation. * COPD: Not on any chronic inhalers nor chronic oxygen supplementation, will maintain on PRN albuterol, HOB, IS parameters. * MATTHEW: CPAP nightly. DVT prophylaxis: Lovenox. CODE status: Full Code. Disposition: to rehab v SNF Greater than 50 minutes of which greater than 50% of time was discussed with the patient and his family about the results, my concern for this being something potentially psychiatric. Also discussing with radiology regards to the findings. Charges/Coding Visit Charges Inpatient E&M: 18718 Subs Hosp L3
[2022-09-20 09:30] VITALS: BP 151/75; PULSE 63; RESP 17; TEMP 36.8; O2SAT 94
[2022-09-20] MEDS: Pantoprazole Sodium 40 MG Tablet PO (09:41)
[2022-09-20] MEDS: Fluoxetine HCl 40 MG CAPSULE 80 MG PO (09:41)
[2022-09-20] MEDS: Aspirin E.C. 81 MG Tablet PO (09:41)
[2022-09-20] MEDS: Magnesium Chloride 64 MG Delay Rel.Tablet 256 MG PO (09:41)
[2022-09-20] MEDS: Clopidogrel Bisulfate 75 MG Tablet PO (09:41)
[2022-09-20] MEDS: Enoxaparin 40 MG/0.4 ML Syringe SC (09:42)
[2022-09-20] MEDS: Insulin Lispro 100 UNIT/ML INSULN.PEN SC (11:54)
[2022-09-20] MEDS: Glucerna Shake 120 ML LIQUID PO (11:54)
[2022-09-20 12:15] LABS: Bedside Glucose 206 mg/dL (74-106)
[2022-09-20 12:28] VITALS: BP 170/88; PULSE 84; RESP 18; O2SAT 95
[2022-09-20 12:40] VITALS: BMI 34.8
[2022-09-20 15:34] VITALS: BP 152/88; PULSE 73; RESP 17; TEMP 36.8; O2SAT 94
[2022-09-20 17:40] LABS: Bedside Glucose 206 mg/dL (74-106)
[2022-09-20] MEDS: Mirtazapine 15 MG Tablet PO (21:16)
[2022-09-20] MEDS: Atorvastatin Calcium 40 MG Tablet PO (21:16)
[2022-09-20 21:18] VITALS: BP 180/78; PULSE 66; RESP 18; TEMP 36.8; O2SAT 98
[2022-09-20 21:40] LABS: Bedside Glucose 171 mg/dL (74-106)
[2022-09-20 22:54] VITALS: BMI 34.8
[2022-09-21 04:34] VITALS: BP 146/81; PULSE 59; RESP 16; TEMP 36.4; O2SAT 94
[2022-09-21 06:25] VITALS: BMI 34.7
[2022-09-21 07:11] LABS: Bedside Glucose 121 mg/dL (74-106)
--- NOTE | 2022-09-21 07:40 | PN.HOSP_ITS ---
Reason for Visit Reason for Visit: Diagnoses Cerebral infarction, unspecified (09/17/22) Chest pain, unspecified (09/17/22) Subjective Subjective Still with dizziness, but feeling better. Objective Data Objective Data Vital Signs: Vital Signs Temp Pulse Resp BP Pulse Ox O2 Del Method FiO2 36.4 C L 59 L 16 146/81 H 94 Room Air 21 09/21/22 04:34 09/21/22 04:34 09/21/22 04:34 09/21/22 04:34 09/21/22 04:34 09/21/22 04:34 09/19/22 01:30 Oxygen Delivery Method Room Air Weight: 103.6 kg Body Mass Index (BMI) 34.7 Intake & Output: Intake and Output for Last 24 Hours 09/19/22 09/20/22 09/21/22 23:59 23:59 23:59 Intake Total 1510 / 1510 1240 / 1240 Output Total 2150 / 2150 2500 / 2500 300 / 300 Balance -640 / -640 -1260 / -1260 -300 / -300 Lab / Micro Data Result Diagrams: 09/18/22 05:45 09/18/22 05:45 Labs: Laboratory Results - last 24 hr 09/20/22 11:51: POC Glucose 206 H 09/20/22 17:15: POC Glucose 206 H 09/20/22 21:05: POC Glucose 171 H 09/21/22 06:29: POC Glucose 121 H Physical Exam Const alert and no apparent distress HEENT head/scalp atraumatic and moist oral mucous membranes Resp normal respiratory effort, no retractions, no use of accessory muscles and clear to auscultation bilaterally Cardio regular rate, regular rhythm, S1 normal heart sound and S2 normal heart sound GI normal to inspection, nondistended, normoactive bowel sounds, soft to palpation, non-tender and non-distended Extremity normal to inspection Assessment & Plan Assessment/Plan (1) CVA (cerebral vascular accident): PLAN: Initially suspected given vertigo, left-sided weakness and paresthesia concerning for CVA. However, subsequently his symptoms, though left sided, have been variable and his exam inconsistent, and studies negative for any acute process. Data: * MRI Brain showed mild atrophy and periventricula whiter matter ischemic changes w/o acute infarct * echo EF 50-55% * CTA head and neck unremarkable * MRI cervical spine showed severe spinal stenosis but no cord impingement * repeat head CT negative for acute process. asa/plavix, statin. 09/19: Still with left-sided weakness but his exam appears to be inconsistent and almost with some giveaway weakness. I did asked the patient if he is having some issues at home and he denied any overt ager stressors. I am concerned that this could be a possible conversion disorder or even psychosomatic. We will check an MRI of his cervical spine to see if there is some pathology. 09/20: I discussed with the patient and his daughters at bedside that there are has been no identifiable etiology for his left-sided weakness. I told that I was concerned that this may not be organic and could be psychosomatic. I did have [facility] evaluate and they reviewed the images and data and do not feel there is any neurologic etiology of his symptoms. Daughter is very concerned about his underlying anxiety even before all this and patient is on medications for depression and anxiety. Stated that it may be beneficial to get some counseling to work what ever issues he may be dealing with. (2) Chest pain: PLAN: Angina, stable/unstable, acute coronary syndrome, myocardial infarction ruled out troponin series negative. No additional cardiac work-up necessary. Status post PCI with most recent noted 08/31/2022 with stent deployed to the mid RCA per Dr. Suárez, will continue aspirin, Plavix, statin, temporally holding patient hypertensive regimen given acute presentation number 1 for permissive hypertension, resume once appropriate. 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 Procedure aborted. 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 * Hyperlipidemia: Continue statin. AM FLP WNL * Chronic Kidney Disease Stage III, unclear subtype: Admission BUN/Cr 19/1.51, baseline renal function primarily 1.1-1.4, repeat BMP in AM. * Diabetes mellitus type II: Hold oral home regimen, hemoglobin A1c pending given acute presentation as noted #1, ADA diet, accu checks w/ ISS, nutrition consulted for education * Anxiety and depression: We will continue patient home fluoxetine and mirtazapine regimen, encourage continued outpatient evaluation and follow-up as well as counseling. * Obesity * Allergic rhinitis: continue cetirizine * GERD: We will continue patient on PPI. * Former tobacco use: Encourage continued tobacco cessation. * COPD: Not on any chronic inhalers nor chronic oxygen supplementation, will maintain on PRN albuterol, HOB, IS parameters. * MATTHEW: CPAP nightly. DVT prophylaxis: Lovenox. CODE status: Full Code. Disposition: to rehab v SNF Charges/Coding Visit Charges Inpatient E&M: 85764 Subs Hosp L2
[2022-09-21 09:07] VITALS: RESP 18
[2022-09-21 09:19] VITALS: BP 152/83; PULSE 73; RESP 18; TEMP 37; O2SAT 96
[2022-09-21] MEDS: Aspirin E.C. 81 MG Tablet PO (09:22)
[2022-09-21] MEDS: Enoxaparin 40 MG/0.4 ML Syringe SC (09:22)
[2022-09-21] MEDS: Magnesium Chloride 64 MG Delay Rel.Tablet 256 MG PO (09:23)
[2022-09-21] MEDS: Pantoprazole Sodium 40 MG Tablet PO (09:23)
[2022-09-21] MEDS: Clopidogrel Bisulfate 75 MG Tablet PO (09:23)
[2022-09-21] MEDS: Fluoxetine HCl 40 MG CAPSULE 80 MG PO (09:23)
--- NOTE | 2022-09-21 10:32 | CASEMGMT ---
Patient was denied for the Inpatient Rehab Unit. SW will talk with patient and his family about a plan. Jody MARTINEZ
--- NOTE | 2022-09-21 10:44 | CASEMGMT ---
SW met with patient. SW let patient know that the Inpatient Rehab Unit is unable to take him. SW asked patient if he would like a list of shelter facilities. Patient said he would like to go somewhere that has a pool so he can do therapy in the pool. SW let him know [facility] and [facility] have pools. Patient declined a list and asked SW to start with [facility] and if they say no then try [facility]. SW let him know SW will work on it. SW asked d/c case assistant Maria R to please send a referral to [facility]. Jody Campbell ANIMAL RIDES MANAGER JUAN
--- NOTE | 2022-09-21 11:00 | CASEMGMT ---
Discharge Planning Rerferral sent to [facility] via [facility]. Maria R Elliott
[2022-09-21 11:15] VITALS: O2SAT 90
[2022-09-21 11:46] LABS: Bedside Glucose 193 mg/dL (74-106)
[2022-09-21] MEDS: Insulin Lispro 100 UNIT/ML INSULN.PEN SC (12:15)
--- NOTE | 2022-09-21 13:16 | CASEMGMT ---
Discharge Planning [facility] accepted patient. SW notified. Maria R Elliott
--- NOTE | 2022-09-21 13:54 | CASEMGMT ---
Justin is at [facility] to do an onsite with patient. SALOMON went to patient's room and let him know that [facility] can take him. SALOMON told patient SALOMON is not sure if it will be today or not. SALOMON also let patient know someone from [facility] is here to talk with him. Patient was in agreement with this. SALOMON notified physician. Jody MARTINEZ
[2022-09-21 14:17] VITALS: O2SAT 95
--- NOTE | 2022-09-21 14:35 | CASEMGMT ---
SALOMON notified patient he will be going to [place] today. SALOMON gave patient his daughter's phone number per his request. Jody MARTINEZ
--- NOTE | 2022-09-21 14:36 | TREXTCAR_ITS ---
Diet Diet Order/Speech Therapy: 09/17/22 23:30 Diet: Cardiac: Calorie-Controlled Food consistency:: Regular Liquid Consistency:: Regular/Thin How many daily calories?: 1800 calorie Routine Orders/Code Status Routine Lab Work: CBC (weekly) and BMP (weekly) Code Status: Full Code Therapies Physical Therapy: Eval and Treat Occupational Therapy: Eval and Treat Problem/Diagnosis (1) CVA (cerebral vascular accident): Status: Acute Code(s): I63.9 - Cerebral infarction, unspecified Plan: Initially suspected given vertigo, left-sided weakness and paresthesia concerning for CVA. However, subsequently his symptoms, though left sided, have been variable and his exam inconsistent, and studies negative for any acute process. Data: * MRI Brain showed mild atrophy and periventricula whiter matter ischemic changes w/o acute infarct * echo EF 50-55% * CTA head and neck unremarkable * MRI cervical spine showed severe spinal stenosis but no cord impingement * repeat head CT negative for acute process. asa/plavix, statin. 09/19: Still with left-sided weakness but his exam appears to be inconsistent and almost with some giveaway weakness. I did asked the patient if he is having some issues at home and he denied any overt ager stressors. I am concerned that this could be a possible conversion disorder or even psychosomatic. We will check an MRI of his cervical spine to see if there is some pathology. 09/20: I discussed with the patient and his daughters at bedside that there are has been no identifiable etiology for his left-sided weakness. I told that I was concerned that this may not be organic and could be psychosomatic. I did have [facility] evaluate and they reviewed the images and data and do not feel there is any neurologic etiology of his symptoms. Daughter is very concerned about his underlying anxiety even before all this and patient is on medications for depression and anxiety. Stated that it may be beneficial to get some counseling to work what ever issues he may be dealing with. (2) Chest pain: Status: Acute Code(s): R07.9 - Chest pain, unspecified Plan: Angina, stable/unstable, acute coronary syndrome, myocardial infarction ruled out troponin series negative. No additional cardiac work-up necessary. Status post PCI with most recent noted 08/31/2022 with stent deployed to the mid RCA per Dr. Suárez, will continue aspirin, Plavix, statin, temporally holding patient hypertensive regimen given acute presentation number 1 for permissive hypertension, resume once appropriate. 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 Procedure aborted. 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 * Hyperlipidemia: Continue statin. AM FLP WNL * Chronic Kidney Disease Stage III, unclear subtype: Admission BUN/Cr 19/1.51, baseline renal function primarily 1.1-1.4, repeat BMP in AM. * Diabetes mellitus type II: Hold oral home regimen, hemoglobin A1c pending given acute presentation as noted #1, ADA diet, accu checks w/ ISS, nutrition consulted for education * Anxiety and depression: We will continue patient home fluoxetine and mi rtazapine regimen, encourage continued outpatient evaluation and follow-up as well as counseling. * Obesity * Allergic rhinitis: continue cetirizine * GERD: We will continue patient on PPI. * Former tobacco use: Encourage continued tobacco cessation. * COPD: Not on any chronic inhalers nor chronic oxygen supplementation, will maintain on PRN albuterol, HOB, IS parameters. * MATTHEW: CPAP nightly. DVT prophylaxis: Lovenox. CODE status: Full Code. Disposition: to rehab v SNF Allergies/Procedures Done in Hospital Allergies No Known Allergies Allergy (Verified 08/19/22 10:02) Type of Care/Length of Stay Estimated LOS: Convalescent Care Less Than 30 days Type of Care Needed: Skilled Rehab Potential: Fair Prognosis: Good Additional Orders/Day of Discharge Day of Discharge: 09/21/22 Dietary and Speech Recommendations Dietitian Recommendations/Changes: Will change to Cardiac/ Sodium restricted / 1800 yoko Consistent CHO diet d/t pmhx Available if diet education desired by pt prior to d/c. 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 Hx of speech therapy from after TIA for cognitive-linguistic impairment. He has concerns for his thinking not feeling 100% since onset of symptoms. Orientation: Fully oriented to self, age, , address, time, place, month, and year. Date off by 1 day. Auditory Comprehension: Yes/no questions (basic) - 5/5 acc. Yes/no questions (moderate) - 5/5 acc. 2-step directions - 5/5 acc. Multistep directions (3-5 steps) - 3/3 acc. Verbal Expression: Repetition of words - 8/10 acc, Repetition of phrases - 9/10 acc. Confrontation naming of objects - 10/10 acc. Divergent naming (concrete) - 18 items in 60 sec, 3 perseverations. Divergent naming (abstract) - 6 items in 60 sec. In 3-minute conversational sample, patient demonstrated mean length of 7.1 words per utterance. Pt's speech was 100% intelligible. Memory: Immediate recall of 3-word list - 3/3 acc, 5-min delayed recall of 3- word list - 2/3 acc despite category cues. Social Interaction: Good topic maintenance. Pt appropriately responded in all conversation exchanges. The patient presented with mild cognitive-linguistic impairment (R41.841) characterized by mild deficits in repetition, word retrieval, and short term recall. Will recommend speech therapy during acute stay 3-5X/week. If persisting deficits upon discharge, will recommend OP speech therapy. Discharge Plan Admission Admit Date/Time: 09/17/22 22:19 Primary Reason for Your Visit: vertigo, weakness. Attending Provider: Shaan Santos Primary Care Provider: Victor M Luke Consulting Providers: Alka Leo Discharge Orders/Prescriptions Prescriptions: New melatonin 3 mg Tablet 3 mg PO QHS PRN PRN (Reason: Insomnia) Qty: 0 0RF meclizine 25 mg Tablet 25 mg PO TID PRN PRN (Reason: vertiginous symptoms) Qty: 0 0RF Glucerna 1.2 Yoko 0.06-1.2 gram-kcal/mL Liquid 120 ml PO TIDCM Qty: 0 0RF Continued fluoxetine 40 mg capsule 80 mg PO DAILY 90 Days Qty: 180 Label Comments: anxiety magnesium oxide 400 mg (241.3 mg magnesium) tablet 800 mg PO DAILY potassium chloride 20 mEq tablet,ER particles/crystals 60 meq PO BID Label Comments: supplement cetirizine 10 mg tablet 10 mg PO DAILY PRN (Reason: Allergic Reaction) cholecalciferol (vitamin D3) 25 mcg (1,000 unit) tablet 25 mcg PO DAILY glimepiride 4 mg tablet 4 mg PO BID metoprolol tartrate 25 mg tablet 25 mg PO BID nitroglycerin 0.4 mg tablet, sublingual 0.4 mg SUBLINGUAL Q5-15M PRN (Reason: CHEST PAIN) Qty: 25 3RF Label Comments: chest pain aspirin 81 MG tablet 81 mg PO DAILY@0800 Label Comments: health maintenance cyanocobalamin (vitamin B-12) 1,000 MCG capsule 1,000 mcg PO DAILY Qty: 0 Label Comments: vitamin pantoprazole 40 MG tablet 40 mg PO DAILY acetaminophen 325 MG tablet 650 mg PO Q6H PRN PRN (Reason: Pain 1-02/09) 0RF clopidogrel 75 mg tablet See Rx Instructions .ROUTE .COMPLEX Rx Instructions: TAKE 1 TABLET BY MOUTH ONCE DAILY FOR BLOOD THINNER mirtazapine [Remeron] 15 mg tablet 15 mg PO QHS Label Comments: sleep atorvastatin 40 mg tablet 40 mg PO QHS Qty: 90 3RF spironolactone 25 mg tablet 25 mg PO DAILY Qty: 90 3RF Label Comments: fluid furosemide 40 mg tablet 80 mg PO DAILY Qty: 180 3RF Label Comments: Hold if systolic blood pressure less than 120 mmHg amlodipine 5 mg tablet 5 mg PO BID Qty: 60 11RF Held metformin 500 mg tablet 500 mg PO BID Hold Instructions: Resume on 09/22/22. Referrals / Follow Up: [facility] [Provider Group] - 10/13/22 1:45 pm [facility] [Provider Group] - 10/05/22 1:00 pm Victor M Luke DO [Primary Care Provider] - Within 2 Weeks Disposition Disposition (needs filled in before D/C Order can be placed): [facility]
--- NOTE | 2022-09-21 14:43 | DS.PCM_ITS ---
Providers Date of Admission: 09/17/22 Primary Care Physician: Dr. Victor M Luke, DO Reason For Visit: CVA, CP Diagnosis Discharge Diagnosis (1) Left-sided weakness: Status: Acute Code(s): R53.1 - Weakness Plan: Patient underwent an extensive stroke work-up as well as radicular work-up. Patient has had CTA, neck CTA, MRI of the brain, MRI of the neck that was all unremarkable. Patient's exam is inconsistent with giveaway weakness. Discussed with neurology who also agreed who evaluated him. Concerns that this may be conversion disorder. Family was concerned about underlying psychiatric issues with him prior to this. And I did talk with them about his inconsistency with exam exam without being confrontational. Patient seems very accepting of this though I have not overtly addressed this is being conversion disorder with he or his family but I did explain that this could be a psychiatric component. No additional neurologic work-up necessary at this time. Reassurance may need to be continually provided. (2) CVA (cerebral vascular accident): Status: Acute Code(s): I63.9 - Cerebral infarction, unspecified Plan: Ruled out initially suspected given vertigo, left-sided weakness and paresthesia concerning for CVA. However, subsequently his symptoms, though left sided, have been variable and his exam inconsistent, and studies negative for any acute process. Data: * MRI Brain showed mild atrophy and periventricula whiter matter ischemic changes w/o acute infarct * echo EF 50-55% * CTA head and neck unremarkable * MRI cervical spine showed severe spinal stenosis but no cord impingement * repeat head CT negative for acute process. asa/plavix, statin. 09/19: Still with left-sided weakness but his exam appears to be inconsistent and almost with some giveaway weakness. I did asked the patient if he is having some issues at home and he denied any overt ager stressors. I am concerned that this could be a possible conversion disorder or even psychosomatic. We will check an MRI of his cervical spine to see if there is some pathology. 09/20: I discussed with the patient and his daughters at bedside that there are has been no identifiable etiology for his left-sided weakness. I told that I was concerned that this may not be organic and could be psychosomatic. I did have [facility] evaluate and they reviewed the images and data and do not feel there is any neurologic etiology of his symptoms. Daughter is very concerned about his underlying anxiety even before all this and patient is on medications for depression and anxiety. Stated that it may be beneficial to get some counseling to work what ever issues he may be dealing with. (3) Chest pain: Status: Acute Code(s): R07.9 - Chest pain, unspecified Plan: Angina, stable/unstable, acute coronary syndrome, myocardial infarction ruled out troponin series negative. No additional cardiac work-up necessary. Status post PCI with most recent noted 08/31/2022 with stent deployed to the mid RCA per Dr. Suárez, will continue aspirin, Plavix, statin, temporally holding patient hypertensive regimen given acute presentation number 1 for permissive hypertension, resume once appropriate. 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 Procedure aborted. 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 * Hyperlipidemia: Continue statin. AM FLP WNL * Chronic Kidney Disease Stage III, unclear subtype: Admission BUN/Cr 19/1.51, baseline renal function primarily 1.1-1.4, repeat BMP in AM. * Diabetes mellitus type II: Hold oral home regimen, hemoglobin A1c pending given acute presentation as noted #1, ADA diet, accu checks w/ ISS, nutrition consulted for education * Anxiety and depression: We will continue patient home fluoxetine and mirtazapine regimen, encourage continued outpatient evaluation and follow-up as well as counseling. * Obesity * Allergic rhinitis: continue cetirizine * GERD: We will continue patient on PPI. * Former tobacco use: Encourage continued tobacco cessation. * COPD: Not on any chronic inhalers nor chronic oxygen supplementation, will maintain on PRN albuterol, HOB, IS parameters. * MATTHEW: CPAP nightly. CODE status: Full Code. Disposition: SNF Medications at Discharge Home Medications aspirin 81 mg tablet,delayed release 81 mg PO DAILY@0800 health maintenance 01/21/17 mirtazapine 15 mg tablet (Remeron) 15 mg PO QHS sleep 09/21/18 cyanocobalamin (vitamin B-12) 1,000 mcg capsule 1,000 mcg PO DAILY vitamin ##0 06/01/19 pantoprazole 40 mg tablet,delayed release 40 mg PO DAILY GERD 12/20/19 acetaminophen 325 mg tablet 650 mg PO Q6H PRN PRN Pain 1-02/0901/03/20 magnesium oxide 400 mg (241.3 mg magnesium) tablet 800 mg PO DAILY SUPPLEMENT 08/01/21 potassium chloride 20 mEq tablet,extended release(part/cryst) 60 meq PO BID supplement 08/01/21 cetirizine 10 mg tablet 10 mg PO DAILY PRN Allergic Reaction 09/16/21 cholecalciferol (vitamin D3) 25 mcg (1,000 unit) tablet 25 mcg PO DAILY 09/16/21 fluoxetine 40 mg capsule 80 mg PO DAILY DEPRESSION 90 days #180 caps 09/16/21 glimepiride 4 mg tablet 4 mg PO BID 09/16/21 atorvastatin 40 mg tablet 40 mg PO QHS CHOLESTEROL #90 tabs 10/31/21 spironolactone 25 mg tablet 25 mg PO DAILY fluid #90 tabs 12/09/21 furosemide 40 mg tablet 80 mg PO DAILY diuretic #180 tabs 01/27/22 amlodipine 5 mg tablet 5 mg PO BID bp #60 tabs 03/11/22 metformin 500 mg tablet 500 mg PO BID DM 08/19/22 metoprolol tartrate 25 mg tablet 25 mg PO BID BP 08/19/22 nitroglycerin 0.4 mg sublingual tablet 0.4 mg sublingual Q5-15M PRN CHEST PAIN #25 tabs 08/19/22 clopidogrel 75 mg tablet See Rx Instructions .Route .COMPLEX 09/17/22 meclizine 25 mg tablet 25 mg PO TID PRN PRN vertiginous symptoms #0 tabs 09/21/22 melatonin 3 mg tablet 3 mg PO QHS PRN PRN Insomnia #0 tabs 09/21/22 nutrition tx glu intol,lac-free,soy-fiber 0.06 gram-1.2 kcal/mL liquid (Glucerna 1.2 Ashwin) 120 ml PO TIDCM #0 mL 09/21/22 Hospital Course Operations None Procedures 2-D Echocardiogram Summary of Care Provided Minutes Spent on Discharge: 32 Hospital Course: Minerva presents with dizziness and left-sided weakness. Patient underwent an extensive neurologic work-up that showed no acute process though was noted the patient did have cervical spinal stenosis. Is feeling that this was either psychosomatic or conversion disorder. No additional neurologic work-up is necessary. Patient be discharged to [facility] in stable condition. Weight / BMI Weight Weight: 103.6 kg Body Mass Index (BMI) 34.7 ABG / Lab / Microbiology Data Result Diagrams: 09/18/22 05:45 09/18/22 05:45 Laboratory: Laboratory Results - last 24 hr 09/20/22 17:15: POC Glucose 206 H 09/20/22 21:05: POC Glucose 171 H 09/21/22 06:29: POC Glucose 121 H 09/21/22 11:26: POC Glucose 193 H Meaningful Use Info Meaningful Use Diagnoses (Choose all that apply): None applicable Discharge Plan Admission Admit Date/Time: 09/17/22 22:19 Primary Reason for Your Visit: vertigo, weakness. Attending Provider: Shaan Santos Primary Care Provider: Victor M Luke Consulting Providers: Alka Leo Discharge Orders/Prescriptions Prescriptions: New melatonin 3 mg Tablet 3 mg PO QHS PRN PRN (Reason: Insomnia) Qty: 0 0RF meclizine 25 mg Tablet 25 mg PO TID PRN PRN (Reason: vertiginous symptoms) Qty: 0 0RF Glucerna 1.2 Ashwin 0.06-1.2 gram-kcal/mL Liquid 120 ml PO TIDCM Qty: 0 0RF Continued fluoxetine 40 mg capsule 80 mg PO DAILY 90 Days Qty: 180 Label Comments: anxiety magnesium oxide 400 mg (241.3 mg magnesium) tablet 800 mg PO DAILY potassium chloride 20 mEq tablet,ER particles/crystals 60 meq PO BID Label Comments: supplement cetirizine 10 mg tablet 10 mg PO DAILY PRN (Reason: Allergic Reaction) cholecalciferol (vitamin D3) 25 mcg (1,000 unit) tablet 25 mcg PO DAILY glimepiride 4 mg tablet 4 mg PO BID metoprolol tartrate 25 mg tablet 25 mg PO BID nitroglycerin 0.4 mg tablet, sublingual 0.4 mg SUBLINGUAL Q5-15M PRN (Reason: CHEST PAIN) Qty: 25 3RF Label Comments: chest pain aspirin 81 MG tablet 81 mg PO DAILY@0800 Label Comments: health maintenance cyanocobalamin (vitamin B-12) 1,000 MCG capsule 1,000 mcg PO DAILY Qty: 0 Label Comments: vitamin pantoprazole 40 MG tablet 40 mg PO DAILY acetaminophen 325 MG tablet 650 mg PO Q6H PRN PRN (Reason: Pain -02/09) 0RF clopidogrel 75 mg tablet See Rx Instructions .ROUTE .COMPLEX Rx Instructions: TAKE 1 TABLET BY MOUTH ONCE DAILY FOR BLOOD THINNER mirtazapine [Remeron] 15 mg tablet 15 mg PO QHS Label Comments: sleep atorvastatin 40 mg tablet 40 mg PO QHS Qty: 90 3RF spironolactone 25 mg tablet 25 mg PO DAILY Qty: 90 3RF Label Comments: fluid furosemide 40 mg tablet 80 mg PO DAILY Qty: 180 3RF Label Comments: Hold if systolic blood pressure less than 120 mmHg amlodipine 5 mg tablet 5 mg PO BID Qty: 60 11RF Held metformin 500 mg tablet 500 mg PO BID Hold Instructions: Resume on 09/22/22. Referrals / Follow Up: [facility] [Provider Group] - 10/13/22 1:45 pm [facility] [Provider Group] - 10/05/22 1:00 pm Victor M Luke DO [Primary Care Provider] - Within 2 Weeks Disposition Disposition (needs filled in before D/C Order can be placed): Senior Living Facility Charges/Coding Visit Charges Inpatient E&M: 18330 Disch Hosp >30min
--- NOTE | 2022-09-21 14:59 | CASEMGMT ---
SALOMON completed 7000 on [employer]. Plan: d/c to [facility] under skilled level of care on a convalescent stay. Physicians will transport patient. Jody MARTINEZ
--- NOTE | 2022-09-21 15:14 | PHA.DC.MR ---
Pharmacy Service has performed discharge medication reconciliation for this patient. The patient's discharge medication list was reviewed for discrepancies and discrepancies were resolved. Home Medications aspirin 81 mg tablet,delayed release 81 mg PO DAILY@0800 health maintenance 01/21/17 mirtazapine 15 mg tablet (Remeron) 15 mg PO QHS sleep 09/21/18 cyanocobalamin (vitamin B-12) 1,000 mcg capsule 1,000 mcg PO DAILY vitamin ##0 06/01/19 pantoprazole 40 mg tablet,delayed release 40 mg PO DAILY GERD 12/20/19 acetaminophen 325 mg tablet 650 mg PO Q6H PRN PRN Pain 1-02/0901/03/20 magnesium oxide 400 mg (241.3 mg magnesium) tablet 800 mg PO DAILY SUPPLEMENT 08/01/21 potassium chloride 20 mEq tablet,extended release(part/cryst) 60 meq PO BID supplement 08/01/21 cetirizine 10 mg tablet 10 mg PO DAILY PRN Allergic Reaction 09/16/21 cholecalciferol (vitamin D3) 25 mcg (1,000 unit) tablet 25 mcg PO DAILY 09/16/21 fluoxetine 40 mg capsule 80 mg PO DAILY DEPRESSION 90 days #180 caps 09/16/21 glimepiride 4 mg tablet 4 mg PO BID 09/16/21 atorvastatin 40 mg tablet 40 mg PO QHS CHOLESTEROL #90 tabs 10/31/21 spironolactone 25 mg tablet 25 mg PO DAILY fluid #90 tabs 12/09/21 furosemide 40 mg tablet 80 mg PO DAILY diuretic #180 tabs 01/27/22 amlodipine 5 mg tablet 5 mg PO BID bp #60 tabs 03/11/22 metformin 500 mg tablet 500 mg PO BID DM 08/19/22 metoprolol tartrate 25 mg tablet 25 mg PO BID BP 08/19/22 nitroglycerin 0.4 mg sublingual tablet 0.4 mg sublingual Q5-15M PRN CHEST PAIN #25 tabs 08/19/22 clopidogrel 75 mg tablet See Rx Instructions .Route .COMPLEX 09/17/22 meclizine 25 mg tablet 25 mg PO TID PRN PRN vertiginous symptoms #0 tabs 09/21/22 melatonin 3 mg tablet 3 mg PO QHS PRN PRN Insomnia #0 tabs 09/21/22 nutrition tx glu intol,lac-free,soy-fiber 0.06 gram-1.2 kcal/mL liquid (Glucerna 1.2 Ashwin) 120 ml PO TIDCM #0 mL 09/21/22
--- NOTE | 2022-09-21 15:21 | CASEMGMT ---
Discharge Planning Discharge orders, med list, and pickup time of 5p [facility] to [place] [facility] Patient, his daughter, SW and nursing notified. Maria R Elliott
[2022-09-21 15:27] VITALS: BP 143/84; PULSE 79; RESP 17; TEMP 36.7; O2SAT 96
[2022-09-21 15:30] VITALS: BMI 34.7
--- NOTE | 2022-09-21 16:26 | CASEMGMT ---
Discharge Planning Covid results sent to [facility] via [facility]. Maria R Elliott
--- NOTE | 2022-09-21 16:53 | NURSING ---
Report called to [facility] in [place] to ALEX Bull.
== END 2022-09-21 17:30 | disposition skilled nursing facility (03) | DRG 880 ==
LOC: ED 22:20 → PCU 22:33
PROVIDERS: Admitting Provider Family Medicine; Emergency Provider Student in an Organized Health Care Education/Training Program; PCP Family Medicine
DX: F44.4 Conversion disorder with motor symptom or deficit (principal); E11.22 Type 2 diabetes mellitus with diabetic chronic kidney disease; N18.30 Chronic kidney disease, stage 3 unspecified; J44.9 Chronic obstructive pulmonary disease, unspecified; E78.5 Hyperlipidemia, unspecified; I12.9 Hypertensive chronic kidney disease with stage 1 through stage 4 chronic kidney disease, or unspecified chronic kidney disease; K21.9 Gastro-esophageal reflux disease without esophagitis; G47.33 Obstructive sleep apnea (adult) (pediatric); I25.10 Atherosclerotic heart disease of native coronary artery without angina pectoris; J30.9 Allergic rhinitis, unspecified; F41.9 Anxiety disorder, unspecified; R07.89 Other chest pain; R20.2 Paresthesia of skin; Z79.02 Long term (current) use of antithrombotics/antiplatelets; Z79.82 Long term (current) use of aspirin; F32.A Depression, unspecified; Z87.891 Personal history of nicotine dependence; Z86.16 Personal history of COVID-19; Z79.84 Long term (current) use of oral hypoglycemic drugs; Z95.5 Presence of coronary angioplasty implant and graft; Z79.899 Other long term (current) drug therapy
CPT/HCPCS: 36415; 70450; 70496; 70498; 70551; 71045; 72141; 80048; 80053; 80061; 82962; 83036; 83735; 84443; 84484; 85025; 85610; 85730; 87811; 92507; 92523; 93005; 93306; 94660; 94668; 94762; 97110; 97116; 97162; 97166; 97530; 97535; 97802; 99252; 99285; J7030; Q9957; Q9967; A4216; C8929; G0463; J2405

== ENCOUNTER → 2022-10-13 | Outpatient (CLI) | payer MEDICARE, OTHER, SELFPAY ==
[2018-08-03 13:04] VITALS: BMI 19.8
[2022-10-13 12:27] LABS: Absolute Lymphocyte Count 1.21 X10^3/uL (0.83-4.51); Basophil# 0.03 X10^3/uL; Basophil% 0.5 % (0-1); Eosinophil# 0.08 X10^3/uL; Eosinophils% 1.4 % (0-5); Hematocrit 41.7 % (40-54); Hemoglobin 13.6 g/dL (13.0-16.5); Lymphocyte # 1.21 X10^3/ul (0.83-4.51); Lymphocyte % 20.7 % (19-41); Mean Corp Hgb Conc 32.6 g/dL (32-36); Mean Corpuscular Hgb 29.2 pg (27.0-32.0); Mean Corpuscular Volume 89.5 fL (80-94); Mean Platelet Vol. 12.6 fl (6.2-12.0); Monocyte% 8.6 % (0-10); NRBC Flagged by Analyzer 0 % (0-5); Neutrophil % 68.5 % (47-70); Platelet Count 126 K/mm3 (150-450); RBC Distribution Width CV 14.1 % (11.6-14.6); RBC Distribution Width SD 46.1 fl (35.1-43.9); Red Blood Count 4.66 M/mm3 (4.6-6.2); White Blood Count 5.8 K/mm3 (4.4-11.0)
[2022-10-13 12:51] LABS: BNP,B-Type NATRIURETIC PEPTIDE 47.2 pg/mL (0-100)
[2022-10-13 13:07] LABS: Anion Gap 6 (5-15); BUN 25 mg/dL (7-18); BUN/Creat Ratio 17.2 RATIO (10-20); Calcium,Total 8.5 mg/dL (8.5-10.1); Chloride 106 mmol/L (98-107); Creatinine, Serum 1.45 mg/dL (0.70-1.30); EST Glomerular Filtration Rate 50 mL/min (>60); Est Glom Filt Rate - Afr Amer 61 mL/min (>60); Free T3 2.7 pg/mL (2.18-3.98); Glucose 277 mg/dL (74-106); Magnesium 2.1 mg/dL (1.6-2.6); Potassium 4.1 mmol/L (3.5-5.1); Sodium Level 139 mmol/L (136-145); T4 Free Direct 0.77 ng/dL (0.76-1.46); Thyroid Stim Hormone (TSH) 4.12 uIU/mL (0.358-3.74)
== END | disposition home or self-care (01) ==
LOC: LAB 11:44
PROVIDERS: PCP Family Medicine; Referring Provider Nurse Practitioner Gerontology; Visit Provider Nurse Practitioner Gerontology
DX: I50.9 Heart failure, unspecified (principal); R55 Syncope and collapse; R53.83 Other fatigue
CPT/HCPCS: 36415; 80048; 83735; 83880; 84439; 84443; 84481; 85025

== ENCOUNTER → 2022-10-16 | Outpatient (CLI) | payer MEDICARE, OTHER, SELFPAY ==
[2018-08-03 13:04] VITALS: BMI 19.8
== END | disposition home or self-care (01) ==
LOC: PSN 11:53
PROVIDERS: PCP Family Medicine; Referring Provider Nurse Practitioner Gerontology; Visit Provider Nurse Practitioner Gerontology
DX: R55 Syncope and collapse (principal)
CPT/HCPCS: 93225; 93226

== ENCOUNTER → 2022-12-15 | Outpatient (CLI) | payer MEDICARE, OTHER, SELFPAY ==
[2018-08-03 13:04] VITALS: BMI 19.8
[2022-12-15 15:07] LABS: Hematocrit 46.7 % (40-54); Hemoglobin 15.2 g/dL (13.0-16.5); Mean Corp Hgb Conc 32.5 g/dL (32-36); Mean Corpuscular Hgb 29.3 pg (27.0-32.0); Mean Corpuscular Volume 90.2 fL (80-94); Mean Platelet Vol. 12.2 fl (6.2-12.0); Platelet Count 143 K/mm3 (150-450); RBC Distribution Width CV 14.4 % (11.6-14.6); RBC Distribution Width SD 47.5 fl (35.1-43.9); Red Blood Count 5.18 M/mm3 (4.6-6.2); White Blood Count 7.3 K/mm3 (4.4-11.0)
[2022-12-15 15:31] LABS: Anion Gap 6 (5-15); BNP,B-Type NATRIURETIC PEPTIDE 38.1 pg/mL (0-100); BUN 15 mg/dL (7-18); BUN/Creat Ratio 13.5 RATIO (10-20); Calcium,Total 8.8 mg/dL (8.5-10.1); Chloride 110 mmol/L (98-107); Creatinine, Serum 1.11 mg/dL (0.70-1.30); EST Glomerular Filtration Rate 68 mL/min (>60); Est Glom Filt Rate - Afr Amer 83 mL/min (>60); Glucose 121 mg/dL (74-106); Sodium Level 139 mmol/L (136-145)
== END | disposition home or self-care (01) ==
PROVIDERS: PCP Family Medicine; Referring Provider Internal Medicine Cardiovascular Disease; Visit Provider Internal Medicine Cardiovascular Disease
DX: R60.0 Localized edema (principal); R53.1 Weakness; R42 Dizziness and giddiness; R07.89 Other chest pain; R06.00 Dyspnea, unspecified; R00.2 Palpitations; I25.10 Atherosclerotic heart disease of native coronary artery without angina pectoris
CPT/HCPCS: 36415; 80048; 83880; 85027

== ENCOUNTER 2022-12-21 07:26 | Day surgery (SDC) | payer MEDICARE, OTHER, SELFPAY ==
[2018-08-03 13:04] VITALS: BMI 19.8
[2022-12-18 08:27] VITALS: BMI 28.7
--- NOTE | 2022-12-21 10:07 | CL.D_ITS ---
Patient Name: GERRY GARCIA Study Date: 12/21/2022 Performing: Jose Suárez MD Ht: 68 inches 172.72 cm : 1945 Wt: 189 lbs 85.73 kg Age: 77 Gender: male BSA: 2 PROCEDURE(S) PERFORMED [id number])[facility] CLINICAL PROFILE AND INDICATIONS Indications: New Onset Angina <= 2 months Heart Failure: None Angina Classification Anginal Classification w/in 2 Weeks: CCS II CONCLUSIONS 30-40% ISR Mid RCA 50% Mid LAD with 70% ostial 1st major septal. RECOMMENDATIONS Medical therapy DESCRIPTION OF PROCEDURE The patient arrived to the procedure lab. The risks and benefits of the procedure as well as a full description of our services here and current unavailability of surgical backup were fully explained to the patient and/or their significant other prior to the catheterization. The Timeout was completed, verifying the correct patient and procedure. The patient's procedural site was prepped and draped in the usual fashion. Local anesthetic was given subcutaneously to left radial region with Lidocaine 2%. Using a modified Seldinger technique, arterial access was obtained via the left radial artery, a 6Fr sheath was inserted. Left Coronary Artery selective angiography was performed in multiple views using a 5 Fr. 4.0 Satsuma catheter. Right Coronary Artery selective angiography was then performed in multiple views using a 5 Fr. 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 Small vessel. Stent to LCX patent RIGHT CORONARY ARTERY: 30-40% ISR Mid RCA COMPLICATIONS No Complications PROCEDURE MEDICATIONS Fentanyl 50 mcg IV Versed 1 mg IV Oxygen: 2 L/min via nasal cannula Heparin given IA 12/21/2022 08:53:47 Heparin 2000 unit(s) IV 12/21/2022 09:15:06 Heparin 2000 unit(s) IV 12/21/2022 09:29:07 IV Bolus: .9 NaCl 250 ml total 12/21/2022 09:44:10 SUMMARY OF HEMODYNAMIC DATA Time AIR REST ECG 07:54:41 AO 118/63 (83) SA 09:04:34 AIR REST 09:53:44 Signed By Jose Suárez MD On 12/21/2022 10:06:42 Jose Suárez MD
== END 2022-12-21 11:30 | disposition home or self-care (01) ==
LOC: CLSP 07:28
PROVIDERS: PCP Family Medicine; Referring Provider Internal Medicine Cardiovascular Disease; Visit Provider Internal Medicine Cardiovascular Disease
DX: I20.9 Angina pectoris, unspecified (principal); J44.9 Chronic obstructive pulmonary disease, unspecified; E11.9 Type 2 diabetes mellitus without complications; N18.32 Chronic kidney disease, stage 3b; I25.10 Atherosclerotic heart disease of native coronary artery without angina pectoris; E78.5 Hyperlipidemia, unspecified; R60.0 Localized edema; I12.9 Hypertensive chronic kidney disease with stage 1 through stage 4 chronic kidney disease, or unspecified chronic kidney disease; Z79.82 Long term (current) use of aspirin; Z87.891 Personal history of nicotine dependence; Z86.73 Personal history of transient ischemic attack (TIA), and cerebral infarction without residual deficits
CPT/HCPCS: 93454; 99152; 99153; C1894; J7040; Q9967; C1769; C1887

== ENCOUNTER → 2022-12-28 | Outpatient (CLI) | payer MEDICARE, OTHER, SELFPAY ==
[2018-08-03 13:04] VITALS: BMI 19.8
--- NOTE | 2022-12-28 12:59 | ECHOCS_ITS ---
Reason For Study: MATTHEW Procedure This was a 2D Doppler, Color Flow transthoracic echocardiogram. Contrast injection was performed. Exam performed in department. Left Ventricle Normal size and thickness. The left ventricular ejection fraction is 60 %. Normal diastology for age. Right Ventricle Normal right ventricle. Atria The left and right atria are normal. Mitral Valve Trivial mitral valve insufficiency. Tricuspid Valve Trivial tricuspid valve insufficiency. Normal pulmonary artery pressure. Aortic Valve Trisinus/trileaflet aortic valve. Moderate diffuse aortic valve thickening. Aortic sclerosis, no stenosis. Pulmonic Valve The pulmonic valve is not well visualized. Mild (1+) pulmonic valve insufficiency. Great Vessels Normal sized aortic root. Pericardium/Pleural No pericardial effusion. Medication Diluted definity 2ml given slow IV push to enhance endocardial definition. MMode/2D Measurements & Calculations LVIDd: 4.8 cm IVSd: 1.0 cm Ao root diam: 2.9 cm LVIDs: 3.1 cm LVPWd: 1.0 cm RVDd: 3.5 cm FS: 35.5 % LAV(MOD-bp): 35.7 ml LVAd ap4: 30.7 cm2 SV(MOD-sp4): 74.6 ml LAV(MOD-bp) Indexed: 16.4 ml/m2 LVLd ap4: 7.2 cm LAV(MOD-sp2): 38.4 ml EDV(MOD-sp4): 107.1 ml LAV(MOD-sp4): 31.3 ml EDV(sp4-el): 110.6 ml LVAs ap4: 14.9 cm2 LVLs ap4: 5.5 cm ESV(MOD-sp4): 32.5 ml ESV(sp4-el): 34.3 ml EF(MOD-sp4): 69.7 % EF(sp4-el): 69.0 % SV(sp4-el): 76.3 ml LA A4 area: 13.4 cm2 LA dimension(2D): 3.8 cm RA A4 area: 12.3 cm2 TAPSE: 2.1 cm Time Measurements MV dec time: 0.21 sec Doppler Measurements & Calculations MV E max nicho: 72.1 cm/sec Lat Peak E' Nicho: 13.8 cm/sec Med Peak E' Nicho: 7.1 cm/sec MV A max nicho: 82.6 cm/sec E/E' lat: 5.2 E/E' med: 10.2 MV E/A: 0.87 MV dec slope: 349.1 cm/sec2 Ao V2 max: 182.6 cm/sec LV V1 max: 128.8 cm/sec Ao max P.3 mmHg LV V1 max P.6 mmHg Ao V2 mean: 119.0 cm/sec Ao mean P.6 mmHg Ao V2 VTI: 41.7 cm PA V2 max: 140.6 cm/sec PI end-d nicho: 96.0 cm/sec TR max nicho: 232.8 cm/sec TR max P.7 mmHg ECHO/Echo Complete W/ Contrast Interpretation Summary The left ventricular ejection fraction is 60 %. Moderate diffuse aortic valve thickening. Aortic sclerosis, no stenosis. Mild (1+) pulmonic valve insufficiency. Ordering Physician: Jose Suárez Referring Physician: Victor M Luke Performed By: Lexie éPrez, RDCS, RVT
== END | disposition home or self-care (01) ==
LOC: CVS 12:59
PROVIDERS: PCP Family Medicine; Referring Provider Internal Medicine Cardiovascular Disease; Visit Provider Internal Medicine Cardiovascular Disease
DX: G47.33 Obstructive sleep apnea (adult) (pediatric) (principal); I50.9 Heart failure, unspecified; R60.0 Localized edema; R42 Dizziness and giddiness; R06.00 Dyspnea, unspecified; R07.89 Other chest pain; I25.10 Atherosclerotic heart disease of native coronary artery without angina pectoris
CPT/HCPCS: 93306; Q9957; A4216; C8929

== ENCOUNTER → 2023-05-07 | Outpatient (CLI) | payer MEDICARE, OTHER, SELFPAY ==
[2018-08-03 13:04] VITALS: BMI 19.8
[2023-05-07 13:00] LABS: Anion Gap 8 (5-15); BUN 17 mg/dL (7-18); BUN/Creat Ratio 13.9 RATIO (10-20); Calcium,Total 8.6 mg/dL (8.5-10.1); Chloride 103 mmol/L (98-107); Creatinine, Serum 1.22 mg/dL (0.70-1.30); EST Glomerular Filtration Rate 61 mL/min (>60); Est Glom Filt Rate - Afr Amer 74 mL/min (>60); Glucose 172 mg/dL (74-106); Potassium 3.7 mmol/L (3.5-5.1); Sodium Level 138 mmol/L (136-145)
== END | disposition home or self-care (01) ==
LOC: BFHLAB 11:06
PROVIDERS: PCP Family Medicine; Visit Provider Family Medicine
DX: I10 Essential (primary) hypertension (principal)
CPT/HCPCS: 36415; 80048

== ENCOUNTER → 2023-10-06 | Outpatient (CLI) | payer MEDICARE, OTHER, SELFPAY ==
[2018-08-03 13:04] VITALS: BMI 19.8
--- NOTE | 2023-10-06 10:49 | STRESSREP_ITS ---
Stress Test Report Date: 10/06/2023 Procedure: Pharmacologic stress nuclear imaging study Indications: Coronary artery disease Consent: Per the patient Procedure: The patient underwent pharmacologic (Regadenoson 0.4mg ) evaluation with a peak heart rate of 97 beats per minute (68%predicted maximal heart rate) and a peak blood pressure of 148/80 mmHg. The baseline ECG demonstrated sinus rhythm. The peak pharmacologic ECG demonstrated no ischemic changes. There were no cardiac dysrhythmias pretest, during pharmacologic infusion, or recovery. There was no complaint of chest discomfort during pharmacologic infusion or recovery. The patient was injected with 14.2 millicuries of technetium 99m Cardiolite and subsequently rest SPECT Cardiolite nuclear imaging was obtained in the horizontal long, vertical long, and short axis views. The patient underwent pharmacologic (Regadenoson) evaluation. The patient was injected with 44.1 millicuries of technetium 99m Cardiolite and subsequently stress SPECT Cardiolite nuclear imaging was obtained in the horizontal long, vertical long, and short axis views. A gated Cardiolite study at peak stress was obtained. The examination was stopped secondary to completion of protocol. Rest and stress SPECT Cardiolite nuclear imaging status post realignment, normalization, and attenuation correction demonstrate no fixed or reversible perfusion defects. The gated Cardiolite study shows generalized hypokinesis. The reported LVEF is 25%. Impression: 1. Pharmacologic (Regadenoson) evaluation 2. Peak pharmacologic ECG with no ischemic changes. 3. There were no cardiac dysrhythmias pretest, during pharmacologic infusion, or recovery. 5. Rest and stress SPECT Cardiolite nuclear imaging demonstrate relative uniform tracer uptake and myocardial perfusion appearing within normal limits. 6. The gated Cardiolite study reports an LVEF of 25% with severe generalized hypokinesis. This note was generated with jobandtalentation software. It may contain incorrect words, spelling, and punctuation that were not noted in checking the note before signing.
== END | disposition home or self-care (01) ==
PROVIDERS: PCP Family Medicine; Referring Provider Physician Assistant Medical; Visit Provider Physician Assistant Medical
DX: R07.89 Other chest pain (principal); Z95.5 Presence of coronary angioplasty implant and graft; I25.119 Atherosclerotic heart disease of native coronary artery with unspecified angina pectoris
CPT/HCPCS: 78452; 93017; A9500; A4216; J2785

== ENCOUNTER → 2023-10-07 | Outpatient (CLI) | payer MEDICARE, OTHER, SELFPAY ==
[2018-08-03 13:04] VITALS: BMI 19.8
[2023-10-07 12:23] LABS: Absolute Lymphocyte Count 1.05 X10^3/uL (0.83-4.51); Absolute Neutrophil Count 4.2 X10^3/uL (2.0-7.7); Basophil# 0.02 X10^3/uL; Basophil% 0.3 % (0-1); Eosinophil# 0.09 X10^3/uL; Eosinophils% 1.5 % (0-5); Hematocrit 47.4 % (40-54); Hemoglobin 15.1 g/dL (13.0-16.5); Lymphocyte # 1.05 X10^3/ul (0.83-4.51); Lymphocyte % 17.6 % (19-41); Mean Corp Hgb Conc 31.9 g/dL (32-36); Mean Corpuscular Hgb 28.6 pg (27.0-32.0); Mean Corpuscular Volume 89.8 fL (80-94); Mean Platelet Vol. 12.5 fl (6.2-12.0); Monocyte# 0.55 X10^3/uL; Monocyte% 9.2 % (0-10); NRBC Flagged by Analyzer 0 % (0-5); Neutrophil # 4.23 X10^3/uL (2.7-7.7); Neutrophil % 70.9 % (47-70); Platelet Count 137 K/mm3 (150-450); RBC Distribution Width CV 14.1 % (11.6-14.6); RBC Distribution Width SD 46.6 fl (35.1-43.9); Red Blood Count 5.28 M/mm3 (4.6-6.2)
[2023-10-07 12:53] LABS: BNP,B-Type NATRIURETIC PEPTIDE 30.8 pg/mL (0-100)
[2023-10-07 13:51] LABS: Anion Gap 10 (5-15); BUN 17 mg/dL (7-18); BUN/Creat Ratio 12.3 RATIO (10-20); Calcium,Total 9.5 mg/dL (8.5-10.1); Chloride 102 mmol/L (98-107); Creatinine, Serum 1.38 mg/dL (0.70-1.30); EST Glomerular Filtration Rate 53 mL/min (>60); Est Glom Filt Rate - Afr Amer 64 mL/min (>60); Glucose 176 mg/dL (74-106); Potassium 4.2 mmol/L (3.5-5.1); Sodium Level 137 mmol/L (136-145)
== END | disposition home or self-care (01) ==
LOC: BFHLAB 10:54
PROVIDERS: PCP Family Medicine; Referring Provider Family Medicine; Visit Provider Family Medicine
DX: I25.5 Ischemic cardiomyopathy (principal); E11.9 Type 2 diabetes mellitus without complications; R53.83 Other fatigue; R06.00 Dyspnea, unspecified
CPT/HCPCS: 36415; 80048; 83880; 85025

== ENCOUNTER 2023-10-12 12:47 | Observation (INO) | payer MEDICARE, OTHER, SELFPAY ==
[2018-08-03 13:04] VITALS: BMI 19.8
[2023-10-12] VITALS (9 sets, daily range): BP systolic 130–163; BP diastolic 66–131; PULSE 60–67; RESP 14–24; TEMP 36.6–36.8; O2SAT 93–97; BMI 35.2; BMI 34.5
--- NOTE | 2023-10-12 13:17 | EKG12_ITS ---
Test Reason : CP Blood Pressure : / mmHG Vent. Rate : 058 BPM Atrial Rate : 058 BPM P-R Int : 178 ms QRS Dur : 092 ms QT Int : 442 ms P-R-T Axes : 071 065 053 degrees QTc Int : 433 ms Sinus bradycardia Otherwise normal ECG Confirmed by George Ríos ([id number]), editor farm journal VERONICA SCOTT ([id number]) on 10/13/2023 8:53:42 AM Referred By: Confirmed By:George Ríos
--- NOTE | 2023-10-12 13:18 | ED.VIS.CHEST ---
HPI History of Present Illness Chief Complaint: Chest Pain Informant: patient and family Narrative Narrative: 78-year-old male started having chest discomfort 2-3 hours ago. He has been having this intermittently for the past month, today more persistent and worse. Occurred while he was sitting at rest. He states that switched sides from his left side to his right side now back to his left, combination of burning, sharp, dull, heavy pain. He states now it is starting to be bothersome in his left arm and his left leg. He took 2 nitroglycerin earlier which seemed to help and now his pain is mild but still present. He was given 4 baby aspirin by EMS. He had a recent stress test that was negative but states he has 8 stents and has had negative stress tests and needed stents in the past. We called his cardiology office advised that he come to the ER. [facility] Medical History Fatigue Syncope Left-sided weakness History of COVID-19 Presence of stent in coronary artery (~08/31/22) Dyslipidemia Diabetes mellitus 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 Coronary artery disease Angina pectoris Abnormal PFT Chest heaviness Palpitations DEAN (dyspnea on exertion) Dizziness Leg pain Cough Exposure to COVID-19 virus Nonhealing nonsurgical wound with fat layer exposed Laceration without foreign body of scalp, subsequent encounter Acute left-sided weakness Essential hypertension CHF (congestive heart failure) History of melanoma Obesity (BMI 35.0-39.9 without comorbidity) CAD (coronary artery disease) 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.9) COPD (chronic obstructive pulmonary disease) TIA (transient ischemic attack) Obstructive sleep apnea 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, stage 3 Atherosclerotic heart disease [place] coronary artery w/angina pectoris Type 2 diabetes mellitus without complications Hyperlipidemia Obesity Home Medications ?Medication ?Instructions ?Recorded ?Last Taken ?Type aspirin 81 mg tablet,delayed 81 mg PO DAILY@0800 health 01/21/17 12/21/22 History release maintenance mirtazapine 15 mg tablet (Remeron) 15 mg PO QHS sleep 09/21/18 12/19/19 History cyanocobalamin (vitamin B-12) 1,000 mcg PO DAILY vitamin ##0 06/01/19 12/19/19 History 1,000 mcg capsule acetaminophen 325 mg tablet 650 mg (2 x 325 mg) PO Q6H PRN PRN 01/03/20 Unknown Rx Pain -02/09 magnesium oxide 400 mg (241.3 mg 800 mg PO DAILY SUPPLEMENT 08/01/21 Unknown History magnesium) tablet potassium chloride 20 mEq 60 meq PO BID supplement 08/01/21 Unknown History tablet,extended release(part/cryst) cetirizine 10 mg tablet 10 mg PO DAILY PRN Allergic 09/16/21 Unknown History Reaction cholecalciferol (vitamin D3) [address] 09/16/21 Unknown History mcg (1,000 unit) tablet fluoxetine 40 mg capsule 80 mg PO DAILY DEPRESSION 90 days 09/16/21 Unknown History #180 caps glimepiride 4 mg tablet [address] 09/16/21 Unknown History metformin 500 mg tablet 500 mg PO BID DM 08/19/22 12/20/22 History nitroglycerin 0.4 mg sublingual 0.4 mg sublingual Q5-15M PRN CHEST 08/19/22 Unknown Rx tablet PAIN #25 tabs meclizine 25 mg tablet 25 mg PO TID PRN PRN vertiginous 09/21/22 Unknown Rx symptoms #0 tabs nutrition tx glu 120 ml PO TIDCM #0 mL 09/21/22 Unknown Rx intol,lac-free,soy-fiber 0.06 gram-1.2 kcal/mL liquid (Glucerna 1.2 Ashwin) isosorbide mononitrate 60 mg 60 mg PO DAILY #30 tabs 10/13/22 Unknown Rx tablet,extended release 24 hr atorvastatin 40 mg tablet 40 mg PO QHS CHOLESTEROL #90 tabs 11/04/22 Unknown Rx empagliflozin 10 mg tablet 10 mg PO DAILY 12/15/22 12/21/22 History (Jardiance) pantoprazole 40 mg tablet,delayed 40 mg PO DAILY GERD #90 tabs 12/15/22 Unknown Rx release spironolactone 25 mg tablet 25 mg PO DAILY fluid #90 tabs 01/06/23 Unknown Rx furosemide 40 mg tablet 80 mg (2 x 40 mg) PO DAILY 03/24/23 Unknown Rx diuretic #180 tabs clopidogrel 75 mg tablet [address] #90 tabs 07/07/23 Unknown Rx carvedilol 6.25 mg tablet (Coreg) 6.25 mg PO BID #60 tabs 09/16/23 Unknown Rx amlodipine 5 mg tablet 5 mg PO DAILY #30 tabs 09/24/23 Unknown Rx losartan 100 mg tablet 100 mg PO DAILY #90 tabs 10/01/23 Unknown Rx ranolazine 500 mg tablet,extended 500 mg PO BID take with food #60 10/01/23 Unknown Rx release,12 hr tabs Allergy/AdvReac Type Severity Reaction Status Date / Time No Known Allergies Allergy Verified 09/16/23 09:25 Family History Father Parkinsons disease Prostate cancer Mother Osteoporosis Surgical History Presence of coronary angioplasty implant and graft (~08/31/22) History of tympanostomy tube placement History of percutaneous transluminal coronary angioplasty (08/18/18) History of herniorrhaphy Hx of cholecystectomy History of tonsillectomy History of prostatectomy Social History household members: spouse and none Smoking Status: Former smoker quit date: 05/03/98 pack-years: 50 how long ago did patient quit smokin years ago alcohol intake: never substance use type: does not use caffeine: Yes Type: coffee and tea Number of servings: 6 ROS ROS ED Constitutional Constitutional ED: Denies chills or fever(s) Eyes Eyes: Denies change in vision or diplopia ENT ENT ED: Denies rhinorrhea or sore throat Cardiovascular Cardiovascular: Reports chest pain; Denies palpitations Respiratory/Chest Respiratory/Chest: Reports dyspnea; Denies cough Gastrointestinal Gastrointestinal: Denies abdominal pain, diarrhea, nausea or vomiting Genitourinary Genitourinary ED: Denies dysuria or hematuria Musculoskeletal Musculoskeletal: Denies back pain or neck pain Integumentary Denies abscess or rash Neurologic Neurologic: Denies headache(s), paresthesias or weakness Psychiatric Psychiatric: Denies anxiety or suicidal thoughts EXAM Physical Exam Const Vital Signs: 10/12/23 12:52 10/12/23 12:55 10/12/23 13:17 Temperature 97.8 F Temperature Source Temporal Pulse Rate 64 Respiratory Rate 16 Respiratory Effort Short of Breath Blood Pressure 163/131 H Blood Pressure Mean 141 Pulse Ox 97 Oxygen Delivery Method Room Air Room Air 10/12/23 13:29 10/12/23 13:47 10/12/23 14:00 Temperature Temperature Source Pulse Rate 66 60 64 Respiratory Rate 23 H 16 Respiratory Effort Blood Pressure 159/84 H 147/82 H 139/77 H Blood Pressure Mean 103 97 Pulse Ox 96 94 Oxygen Delivery Method Room Air Room Air 10/12/23 15:00 10/12/23 16:00 Temperature Temperature Source Pulse Rate 61 60 Respiratory Rate 15 18 Respiratory Effort Blood Pressure 144/71 H 133/72 H Blood Pressure Mean 95 92 Pulse Ox 95 95 Oxygen Delivery Method Room Air Room Air Positive well nourished and well developed General Appearance ED: well developed and NAD HEENT Reports moist mucous membranes normocephalic and atraumatic Eyes PERRL and EOMs intact bilaterally Neck full ROM and supple Resp normal respiratory effort and clear to auscultation bilaterally Cardio regular rate and regular rhythm GI non-tender and non-distended Auscultation: normoactive bowel sounds Palpation: soft Back/Spine no CVA tenderness General Back: other FROM Extremity normal to inspection General Extremety ED: Negative for edema, pulses abnormal or tenderness General Extremity: Negative for edema or pulses abnormal Neuro oriented x3, CN's II-XII intact bilaterally and no sensory deficits noted Sensorium / Orientation: awake and alert Motor Exam: strength 5/5 throughout Skin no rashes or lesions noted and no wounds Heart Score History: Highly Suspicious ECG: Normal Age: >/= 65 years Risk Factors: >/= 3 Risk Factors or History of CAD Score: 6 MDM MDM MDM Narrative Medical decision making narrative: Patient already had aspirin prior to arrival here 324 mg. He was given nitroglycerin paste 1 inch on his chest while we performed initial workup, and subsequently his pain is barely present and feeling improved. His EKG shows no acute injury pattern and his troponin is negative. I discussed with Dr. Araujo, we discussed his stress test recently that was negative nuclear Cardiolite, with a 25% ejection fraction, and heart cath in December of last year that showed nonocclusive but present disease in the LAD and right coronary arteries. He is unsure if the patient needs to be catheterized urgently or not, advised I try to discuss with Dr. 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 Advised admission for now, cycling of enzymes, and cardiology consultation for probable catheterization tomorrow and agrees with heparin. Lab Data Attestation: I reviewed the patient's lab results. Labs: Laboratory Results - last 24 hr 10/12/23 13:25 WBC 9.2 RBC 5.53 Hgb 15.6 Hct 49.3 MCV 89.2 MCH 28.2 MCHC 31.6 L RDW Std Deviation 46.7 H RDW Coeff of Adrian 14.2 Plt Count 137 L MPV 12.7 H Immature Gran % (Auto) 0.400 Neut % (Auto) 79.1 H Lymph % (Auto) 11.4 L Rooks % (Auto) 8.0 Eos % (Auto) 0.8 Baso % (Auto) 0.3 Absolute Neuts (auto) 7.3 Absolute Lymphs (auto) 1.05 Nucleated RBC % 0 Sodium 134 L Potassium 4.9 Chloride 106 Carbon Dioxide 22.0 Anion Gap 6 BUN 17 Creatinine 1.36 H Estim Creat Clear Calc 52.60 Est GFR (MDRD) Af Amer 65 Est GFR (MDRD) Non-Af 54 L BUN/Creatinine Ratio 12.5 Glucose 166 H Calcium 9.1 Troponin I High Sens 5 Radiography Diagnostic Testing: Clinical Impression(s) from Imaging Studies Chest X-Ray 10/12/23 13:30 IMPRESSION: There is evidence of multiple healed right-sided rib fractures with underlying pleural thickening. No acute infiltrate is seen. Electronically Signed: Constantin Lee MD at 13:51 EDT , Rhythm Strip Rhythm Strip: Sinus Rhythm Rate: 65 Ectopy: None EKG Initial EKG: Attestation: I personally reviewed and interpreted this EKG as follows: Interpretation: Sinus Rhythm and No Acute Injury Pattern Comments: T waves fairly flat inferiorly and laterally, no different from old EKG Prior EKG tracings: available for review Prior: Unchanged Management Discussion w/another healthcare provider: Hospitalist and Crime Scene Specialist (Cardiology Drs. Araujo, Jose Armando) Discharge Plan Triage Chief Complaint: Chest Pain ED Provider: Rocael Zavala Dx/Rx/DC Orders Clinical Impression: Unstable angina, Coronary artery disease Prescriptions: No Action fluoxetine 40 mg capsule 80 mg PO DAILY 90 Days Qty: 180 Patient Comments: anxiety magnesium oxide 400 mg (241.3 mg magnesium) tablet 800 mg PO DAILY potassium chloride 20 mEq tablet,ER particles/crystals 60 meq PO BID Patient Comments: supplement cetirizine 10 mg tablet 10 mg PO DAILY PRN (Reason: Allergic Reaction) cholecalciferol (vitamin D3) 25 mcg (1,000 unit) tablet 25 mcg PO DAILY glimepiride 4 mg tablet 4 mg PO BID nitroglycerin 0.4 mg tablet, sublingual 0.4 mg SUBLINGUAL Q5-15M PRN (Reason: CHEST PAIN) Qty: 25 3RF Patient Comments: chest pain metformin 500 mg tablet 500 mg PO BID isosorbide mononitrate 60 mg tablet extended release 24 hr 60 mg PO DAILY Qty: 30 11RF Jardiance 10 mg tablet 10 mg PO DAILY pantoprazole 40 mg tablet,delayed release (DR/EC) 40 mg PO DAILY Qty: 90 3RF carvedilol [Coreg] 6.25 mg tablet 6.25 mg PO BID Qty: 60 11RF Rx Instructions: must administer with a meal/food aspirin 81 MG tablet 81 mg PO DAILY@0800 Patient Comments: health maintenance cyanocobalamin (vitamin B-12) 1,000 MCG capsule 1,000 mcg PO DAILY Qty: 0 Patient Comments: vitamin acetaminophen 325 MG tablet 650 mg PO Q6H PRN PRN (Reason: Pain -02/09) 0RF meclizine 25 mg Tablet 25 mg PO TID PRN PRN (Reason: vertiginous symptoms) Qty: 0 0RF Glucerna 1.2 Ashwin 0.06-1.2 gram-kcal/mL Liquid 120 ml PO TIDCM Qty: 0 0RF mirtazapine [Remeron] 15 mg tablet 15 mg PO QHS Patient Comments: sleep atorvastatin 40 mg tablet 40 mg PO QHS Qty: 90 3RF spironolactone 25 mg tablet 25 mg PO DAILY Qty: 90 3RF Patient Comments: fluid furosemide 40 mg tablet 80 mg PO DAILY Qty: 180 3RF Patient Comments: Hold if systolic blood pressure less than 120 mmHg clopidogrel 75 mg tablet 75 mg PO DAILY Qty: 90 3RF amlodipine 5 mg tablet 5 mg PO DAILY Qty: 30 11RF losartan 100 mg tablet 100 mg PO DAILY Qty: 90 3RF ranolazine 500 mg tablet extended release 12 hr 500 mg PO BID Qty: 60 11RF Primary Care Provider: Victor M Luke Referrals: Victor M Luke DO [Primary Care Provider] - Print Language: Telugu Disposition Disposition: Acute Care Hospital [facility]
[2023-10-12] MEDS: Nitroglycerin Oint 1 INCH PACKET TD (13:29)
--- NOTE | 2023-10-12 13:30 | RAD_ITS ---
STUDY: X-RAY CHEST REASON FOR EXAM: Male, 78 years old. Chest pain TECHNIQUE: Single AP portable view of the chest. COMPARISON: Comparison is made with prior study dated September 17, 2022. FINDINGS: EKG electrodes are seen. Multiple healed right rib fractures with deformity and underlying pleural thickening. Stable mild elevation of the right hemidiaphragm. The lungs are clear. Normal size heart. Normal mediastinum and melanie. Normal visualized pulmonary arteries. There is atherosclerotic calcification of the aortic arch with tortuosity. There are diffuse degenerative changes of the visualized thoracic spine. Normal visualized ribs, clavicles, and shoulders. There is no demonstrated abnormality of the visualized soft tissue structures of the upper abdomen. RAD/Chest 1 View (Portable) IMPRESSION: There is evidence of multiple healed right-sided rib fractures with underlying pleural thickening. No acute infiltrate is seen. Electronically Signed: Constantin Lee MD at 13:51 EDT ,
[2023-10-12] MEDS: 0.9% Normal Saline (1000mL) 1,000 ML 150 ML IV (13:31)
[2023-10-12 13:32] LABS: Absolute Lymphocyte Count 1.05 X10^3/uL (0.83-4.51); Absolute Neutrophil Count 7.3 X10^3/uL (2.0-7.7); Basophil# 0.03 X10^3/uL; Basophil% 0.3 % (0-1); Eosinophil# 0.07 X10^3/uL; Eosinophils% 0.8 % (0-5); Hematocrit 49.3 % (40-54); Hemoglobin 15.6 g/dL (13.0-16.5); Lymphocyte # 1.05 X10^3/ul (0.83-4.51); Lymphocyte % 11.4 % (19-41); Mean Corp Hgb Conc 31.6 g/dL (32-36); Mean Corpuscular Hgb 28.2 pg (27.0-32.0); Mean Corpuscular Volume 89.2 fL (80-94); Mean Platelet Vol. 12.7 fl (6.2-12.0); Monocyte# 0.74 X10^3/uL; NRBC Flagged by Analyzer 0 % (0-5); Neutrophil # 7.28 X10^3/uL (2.7-7.7); Neutrophil % 79.1 % (47-70); Platelet Count 137 K/mm3 (150-450); RBC Distribution Width CV 14.2 % (11.6-14.6); RBC Distribution Width SD 46.7 fl (35.1-43.9); Red Blood Count 5.53 M/mm3 (4.6-6.2); White Blood Count 9.2 K/mm3 (4.4-11.0)
[2023-10-12 14:34] LABS: Anion Gap 6 (5-15); BUN 17 mg/dL (7-18); BUN/Creat Ratio 12.5 RATIO (10-20); Calcium,Total 9.1 mg/dL (8.5-10.1); Chloride 106 mmol/L (98-107); Creatinine, Serum 1.36 mg/dL (0.70-1.30); EST Glomerular Filtration Rate 54 mL/min (>60); Est Glom Filt Rate - Afr Amer 65 mL/min (>60); Glucose 166 mg/dL (74-106); Potassium 4.9 mmol/L (3.5-5.1); Sodium Level 134 mmol/L (136-145); Troponin-I HS (w/2H Reflex) 5 pg/mL (3.0-78.0)
[2023-10-12 15:29] LABS: Reflex Troponin-HS? (from REC) Y
[2023-10-12] MEDS: HEPARIN/D5w 25,000 UNITS 25,000 UNITS/250 ML IV.SOLN. 10 UNITS CONT INF (16:31)
[2023-10-12] MEDS: Heparin Injection (Vial) 5,000 UNIT/ML VIAL 4000 UNIT IV (16:32)
--- NOTE | 2023-10-12 16:34 | NURSING ---
PCU OLEGHE UNSTABLE ANGINA
[2023-10-12 16:35] LABS: Prothrombin Time (Protime)PT. 13.6 SECONDS (11.7-14.9)
[2023-10-12 16:36] LABS: Partial Thromboplast Time 29.5 Seconds (24.1-36.2)
--- NOTE | 2023-10-12 17:41 | NURSING ---
PCU OLEGHE UNSTABLE ANGINA
--- NOTE | 2023-10-12 18:02 | PCM.HP.STD ---
[facility] - General General Date of Admission: 10/12/23 Date of Service: 10/12/23 Chief Complaint: Chest pain HPI Narrative GERRY GARCIA, is a 78 M with a history of COPD, hypertension and chronic kidney disease stage III as well as MATTHEW and type 2 diabetes and who presents with a few days history of worsening intermittent chest pain. Patient has had stress test in the recent past that were negative. Patient denies any shortness of breath, orthopnea or proximal nocturnal dyspnea. No report any lower extremity swelling. Patient describes pain in various ways including toe, fullness, heaviness and tingling and moves from the left side of his chest to the right and back again. [facility] Medical History Fatigue Syncope Left-sided weakness History of COVID-19 Presence of stent in coronary artery (~08/31/22) Dyslipidemia Diabetes mellitus 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 Coronary artery disease Angina pectoris Abnormal PFT Chest heaviness Palpitations DEAN (dyspnea on exertion) Dizziness Leg pain Cough Exposure to COVID-19 virus Nonhealing nonsurgical wound with fat layer exposed Laceration without foreign body of scalp, subsequent encounter Acute left-sided weakness Essential hypertension CHF (congestive heart failure) History of melanoma Obesity (BMI 35.0-39.9 without comorbidity) CAD (coronary artery disease) 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.9) COPD (chronic obstructive pulmonary disease) TIA (transient ischemic attack) Obstructive sleep apnea 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, stage 3 Atherosclerotic heart disease [place] coronary artery w/angina pectoris Type 2 diabetes mellitus without complications Hyperlipidemia Obesity Home Medications ?Medication ?Instructions ?Recorded ?Last Taken ?Type aspirin 81 mg tablet,delayed 81 mg PO DAILY@0800 health 01/21/17 10/11/23 History release maintenance mirtazapine 15 mg tablet (Remeron) 15 mg PO QHS sleep 09/21/18 10/11/23 History cyanocobalamin (vitamin B-12) 1,000 mcg PO DAILY vitamin ##0 06/01/19 10/11/23 History 1,000 mcg capsule magnesium oxide 400 mg (241.3 mg 800 mg PO DAILY SUPPLEMENT 08/01/21 10/11/23 History magnesium) tablet potassium chloride 20 mEq 60 meq PO BID supplement 08/01/21 10/11/23 History tablet,extended release(part/cryst) cetirizine 10 mg tablet 10 mg PO DAILY PRN Allergic 09/16/21 10/11/23 History Reaction cholecalciferol (vitamin D3) [address] 09/16/21 10/11/23 History mcg (1,000 unit) tablet fluoxetine 40 mg capsule 80 mg PO DAILY DEPRESSION 90 days 09/16/21 10/11/23 History #180 caps metformin 500 mg tablet 500 mg PO BID DM 08/19/22 10/11/23 History nitroglycerin 0.4 mg sublingual 0.4 mg sublingual Q5-15M PRN CHEST 08/19/22 10/12/23 Rx tablet PAIN #25 tabs isosorbide mononitrate 60 mg 60 mg PO DAILY #30 tabs 10/13/22 10/11/23 Rx tablet,extended release 24 hr atorvastatin 40 mg tablet 40 mg PO QHS CHOLESTEROL #90 tabs 11/04/22 10/11/23 Rx pantoprazole 40 mg tablet,delayed 40 mg PO DAILY GERD #90 tabs 12/15/22 10/12/23 Rx release furosemide 40 mg tablet 80 mg (2 x 40 mg) PO DAILY 03/24/23 10/11/23 Rx diuretic #180 tabs clopidogrel 75 mg tablet [address] #90 tabs 07/07/23 10/11/23 Rx carvedilol 6.25 mg tablet (Coreg) 6.25 mg PO BID #60 tabs 09/16/23 10/11/23 Rx amlodipine 5 mg tablet 5 mg PO DAILY #30 tabs 09/24/23 10/11/23 Rx losartan 100 mg tablet 100 mg PO DAILY #90 tabs 10/01/23 10/11/23 Rx ranolazine 500 mg tablet,extended 500 mg PO BID take with food #60 10/01/23 10/11/23 Rx release,12 hr tabs acetaminophen 325 mg tablet 650 mg PO Q6H PRN Pain 1-02/0910/12/23 Unknown History empagliflozin 25 mg tablet 25 mg PO DAILY 10/12/23 10/11/23 History (Jardiance) spironolactone 50 mg tablet 50 mg PO DAILY 10/12/23 10/11/23 History Allergy/AdvReac Type Severity Reaction Status Date / Time No Known Allergies Allergy Verified 09/16/23 09:25 Family History Father Parkinsons disease Prostate cancer Mother Osteoporosis Surgical History Presence of coronary angioplasty implant and graft (~08/31/22) History of tympanostomy tube placement History of percutaneous transluminal coronary angioplasty (08/18/18) History of herniorrhaphy Hx of cholecystectomy History of tonsillectomy History of prostatectomy Social History household members: spouse and none Smoking Status: Former smoker quit date: 05/03/98 pack-years: 50 how long ago did patient quit smokin years ago alcohol intake: never substance use type: does not use caffeine: Yes Type: coffee and tea Number of servings: 6 ROS ROS Narrative Denies any abdominal pain nausea vomiting. All other systems reviewed and essentially negative or as above in the body of the history Vital Signs Vital Signs Vital Signs: 10/12/23 12:52 10/12/23 12:55 10/12/23 13:17 Temperature 36.6 C Temperature Source Temporal Pulse Rate 64 Respiratory Rate 16 Respiratory Effort Short of Breath Blood Pressure 163/131 H Blood Pressure Mean 141 Pulse Ox 97 Oxygen Delivery Method Room Air Room Air 10/12/23 13:29 10/12/23 13:47 10/12/23 14:00 Temperature Temperature Source Pulse Rate 66 60 64 Respiratory Rate 23 H 16 Respiratory Effort Blood Pressure 159/84 H 147/82 H 139/77 H Blood Pressure Mean 103 97 Pulse Ox 96 94 Oxygen Delivery Method Room Air Room Air 10/12/23 15:00 10/12/23 16:00 10/12/23 17:00 Temperature 36.8 C Temperature Source Pulse Rate 61 60 61 Respiratory Rate 15 18 21 H Respiratory Effort Blood Pressure 144/71 H 133/72 H 146/73 H Blood Pressure Mean 95 92 97 Pulse Ox 95 95 96 Oxygen Delivery Method Room Air Room Air Weight Weight: 105.1 kg Body Mass Index (BMI) 35.2 Physical Exam Narrative General exam. Elderly man. Appears younger than stated age. Not in any obvious distress HEENT. Oral mucosa moist no pallor or jaundice Neck. Neck is supple. Lungs. Clear to auscultation Heart. First and second sounds slightly distant. No parasternal tenderness. Abdomen. Obese soft and nontender. Extremities. 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 Cranial 2-12 grossly intact. Results Medical Records Data Attestation: I reviewed the patient's medical records Lab / Micro Data Attestation: I reviewed the patient's lab results. 10/12/23 13:25 10/12/23 13:25 Labs: Laboratory Results - last 24 hr 10/12/23 13:25: WBC 9.2, RBC 5.53, Hgb 15.6, Hct 49.3, MCV 89.2, MCH 28.2, MCHC 31.6 L, RDW Std Deviation 46.7 H, RDW Coeff of Adrian 14.2, Plt Count 137 L, MPV 12.7 H, Immature Gran % (Auto) 0.400, Neut % (Auto) 79.1 H, Lymph % (Auto) 11.4 L, Finney % (Auto) 8.0, Eos % (Auto) 0.8, Baso % (Auto) 0.3, Absolute Neuts (auto) 7.3, Absolute Lymphs (auto) 1.05, Nucleated RBC % 0, PT 13.6, INR 1.0, APTT 29.5, Sodium 134 L, Potassium 4.9, Chloride 106, Carbon Dioxide 22.0, Anion Gap 6, BUN 17, Creatinine 1.36 H, Estim Creat Clear Calc 52.60, Est GFR (MDRD) Af Amer 65, Est GFR (MDRD) Non-Af 54 L, BUN/Creatinine Ratio 12.5, Glucose 166 H, Calcium 9.1, Troponin I High Sens 5 Rhythm Strip Rhythm Strip: Sinus Rhythm Rate: 65 Ectopy: None Imaging Radiology Impression Chest X-Ray 10/12/23 13:30 IMPRESSION: There is evidence of multiple healed right-sided rib fractures with underlying pleural thickening. No acute infiltrate is seen. Electronically Signed: Constantin Lee MD at 13:51 EDT , Assessment & Plan Assessment/Plan (1) Unstable angina: PLAN: Plan 1. Chest pain with normal troponins. Patient with known history coronary artery disease of varying severity and with history of left circumflex stent. Recent stress test done a few days ago was without any inducible/reversible ischemia but did show severe global hypokinesis with ejection fraction of 25% (paradoxically, echocardiogram done recently showed normal ejection fraction). Also recent left heart catheterization showed patent stent and mild to moderate disease in other vessels without any interventions required/performed. Suspect possible unstable angina. Suspect possible microvascular or vasospastic component. Given nitro paste with improvement in symptoms. ED physician has communicated with cardiology and patient is planned for left heart catheterization tomorrow morning. Instructed to start on heparin by weight. Will continue with that. N.p.o. after midnight. Continue dual antiplatelet therapy with Plavix and aspirin as well as high intensity statin with atorvastatin 80 mg daily. 2. 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 stage III. Stable will monitor. 3. Morbid obesity with obstructive sleep apnea. Charges/Coding Visit Charges Inpatient E&M: 13337 Init Hosp L3
--- NOTE | 2023-10-12 19:00 | EKG12_ITS ---
Test Reason : AM EKG Blood Pressure : / mmHG Vent. Rate : 052 BPM Atrial Rate : 052 BPM P-R Int : 188 ms QRS Dur : 092 ms QT Int : 466 ms P-R-T Axes : 066 078 052 degrees QTc Int : 433 ms Sinus bradycardia Otherwise normal ECG When compared with ECG of 12-OCT-2023 19:10, MANUAL COMPARISON REQUIRED, DATA IS UNCONFIRMED Confirmed by George Ríos ([id number]), purchase request editor VERONICA SCOTT ([id number]) on 10/13/2023 9:07:14 AM Referred By: Confirmed By:George Ríos
[2023-10-12 20:41] LABS: Troponin-I HS 8 pg/mL (3.0-78.0)
[2023-10-12] MEDS: 0.9% Normal Saline (1000mL) 1,000 ML 100 ML IV (21:00)
[2023-10-12] MEDS: Carvedilol 6.25 MG Tablet PO (21:02)
[2023-10-12] MEDS: Ranolazine 500 MG Tablet PO (21:06)
[2023-10-12] MEDS: Mirtazapine 15 MG Tablet PO (21:07)
[2023-10-12] MEDS: Atorvastatin Calcium 40 MG Tablet PO (21:07)
[2023-10-12 21:20] LABS: Troponin-I HS 6 pg/mL (3.0-78.0)
[2023-10-13] VITALS (13 sets, daily range): BP systolic 95–147; BP diastolic 57–72; PULSE 51–70; RESP 14–17; TEMP 35.9–36.6; O2SAT 93–98
[2023-10-13 05:01] LABS: Absolute Lymphocyte Count 1.63 X10^3/uL (0.83-4.51); Absolute Neutrophil Count 5.3 X10^3/uL (2.0-7.7); Basophil# 0.03 X10^3/uL; Basophil% 0.4 % (0-1); Eosinophil# 0.09 X10^3/uL; Eosinophils% 1.2 % (0-5); Hematocrit 41.8 % (40-54); Hemoglobin 13.4 g/dL (13.0-16.5); Lymphocyte # 1.63 X10^3/ul (0.83-4.51); Lymphocyte % 20.9 % (19-41); Mean Corp Hgb Conc 32.1 g/dL (32-36); Mean Corpuscular Hgb 29.1 pg (27.0-32.0); Mean Corpuscular Volume 90.9 fL (80-94); Monocyte# 0.75 X10^3/uL; Monocyte% 9.6 % (0-10); NRBC Flagged by Analyzer 0 % (0-5); Neutrophil # 5.28 X10^3/uL (2.7-7.7); Neutrophil % 67.6 % (47-70); Platelet Count 115 K/mm3 (150-450); RBC Distribution Width CV 13.9 % (11.6-14.6); RBC Distribution Width SD 46.7 fl (35.1-43.9); White Blood Count 7.8 K/mm3 (4.4-11.0)
[2023-10-13] MEDS: 0.9% Normal Saline (1000mL) 1,000 ML 100 ML IV (05:01)
[2023-10-13 05:24] LABS: Partial Thromboplast Time 107.6 Seconds (24.1-36.2)
[2023-10-13 05:30] LABS: ALB/GLOB Ratio 1.1 RATIO (0.9-2.4); AST(SGOT) 19 U/L (15-37); Alanine Aminotransfer ALT/SGPT 34 U/L (16-61); Alkaline Phosphatase 105 U/L (45-117); Anion Gap 4 (5-15); BUN 17 mg/dL (7-18); BUN/Creat Ratio 12.3 RATIO (10-20); Calcium,Total 8.5 mg/dL (8.5-10.1); Chloride 108 mmol/L (98-107); Creatinine, Serum 1.38 mg/dL (0.70-1.30); EST Glomerular Filtration Rate 53 mL/min (>60); Est Glom Filt Rate - Afr Amer 64 mL/min (>60); Estimated Creatinine Clearance 51.42 ml/min; Globulin 2.8 g/dL (2.2-4.2); Glucose 155 mg/dL (74-106); Potassium 4.2 mmol/L (3.5-5.1); Protein, Total 5.8 g/dL (6.4-8.2); Sodium Level 138 mmol/L (136-145)
--- NOTE | 2023-10-13 05:55 | EKG12_ITS ---
Test Reason : CP ADMISSION Blood Pressure : / mmHG Vent. Rate : 068 BPM Atrial Rate : 068 BPM P-R Int : 182 ms QRS Dur : 092 ms QT Int : 414 ms P-R-T Axes : 072 075 046 degrees QTc Int : 440 ms Normal sinus rhythm Normal ECG When compared with ECG of 12-OCT-2023 13:26, MANUAL COMPARISON REQUIRED, DATA IS UNCONFIRMED Confirmed by Georeg Ríos ([id number]), staff editor VERONICA SCOTT ([id number]) on 10/13/2023 9:07:21 AM Referred By: Confirmed By:George Ríos
[2023-10-13] MEDS: Nitroglycerin (INPATIENT USE) 0.4 MG TAB.SUBL SL (06:05)
[2023-10-13] MEDS: Isosorbide Mononitrate 60 MG Tablet PO (06:28)
[2023-10-13] MEDS: Aspirin E.C. 81 MG Tablet PO (06:29)
[2023-10-13] MEDS: Clopidogrel Bisulfate 75 MG Tablet PO (06:30)
[2023-10-13] MEDS: Carvedilol 6.25 MG Tablet PO (06:30)
[2023-10-13] MEDS: Losartan Potassium 100 MG Tablet PO (06:32)
[2023-10-13] MEDS: Ranolazine 500 MG Tablet PO (06:33)
[2023-10-13] MEDS: amLODIPine 5 MG Tablet PO (06:33)
--- NOTE | 2023-10-13 09:03 | PCM.CONS.C ---
Assessment & Plan Assessment/Plan (1) Unstable angina: PLAN: Patient presents with chest discomfort which is likely noncardiac. He recently had a pharmacologic stress test but did not demonstrate any evidence of ischemia. However due to his persistent symptoms it was felt that he should be evaluated with a coronary angiogram. Risk benefits alternatives have been explained to him he understands and agrees to proceed. Addendum: He underwent a cardiac catheterization which demonstrated patency of his left arterial system as well as his right coronary artery which had a previously placed stents. I would recommend optimizing his medical therapy and discharging him for outpatient follow-up. (2) Presence of stent in coronary artery: PLAN: Patient has a history of a stent in the right coronary artery. This will be reevaluated with the cardiac catheterization. (3) Essential hypertension: PLAN: His blood pressure is under good control at this time I would not recommend that we make any major changes. (4) Hyperlipidemia: QUALIFIERS: Hyperlipidemia type: unspecified Qualified Code(s): E78.5 - Hyperlipidemia, unspecified PLAN: He will continue with aggressive risk factor modification. Thank you for allowing me to participate in the care of your patient. Please don't hesitate to call if any issues arise. HPI Consult Data Date of Consult: 10/13/23 HPI Narrative HPI Narrative: GERRY GARCIA, is a 78 M who presents to the emergency room with multiple complaints of chest heaviness. He also has had problems with his blood pressure. He says that he has this heaviness with minimal exertion. 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 They have attempted to PCI this multiple times without success. He also has a history of hypertension and hyperlipidemia he underwent a last catheterization in August 2022 underwent successful drug-eluting stent to the proximal right coronary artery for in-stent stenosis. He presented to the emergency room was evaluated and admitted for further evaluation and management. [facility] Medical History Fatigue Syncope Left-sided weakness History of COVID-19 Presence of stent in coronary artery (~08/31/22) Dyslipidemia Diabetes mellitus 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 Coronary artery disease Angina pectoris Abnormal PFT Chest heaviness Palpitations DEAN (dyspnea on exertion) Dizziness Leg pain Cough Exposure to COVID-19 virus Nonhealing nonsurgical wound with fat layer exposed Laceration without foreign body of scalp, subsequent encounter Acute left-sided weakness Essential hypertension CHF (congestive heart failure) History of melanoma Obesity (BMI 35.0-39.9 without comorbidity) CAD (coronary artery disease) 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.9) COPD (chronic obstructive pulmonary disease) TIA (transient ischemic attack) Obstructive sleep apnea 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, stage 3 Atherosclerotic heart disease [place] coronary artery w/angina pectoris Type 2 diabetes mellitus without complications Hyperlipidemia Obesity Home Medications ?Medication ?Instructions ?Recorded ?Last Taken ?Type aspirin 81 mg tablet,delayed 81 mg PO DAILY@0800 health 01/21/17 10/11/23 History release maintenance mirtazapine 15 mg tablet (Remeron) 15 mg PO QHS sleep 09/21/18 10/11/23 History cyanocobalamin (vitamin B-12) 1,000 mcg PO DAILY vitamin ##0 06/01/19 10/11/23 History 1,000 mcg capsule magnesium oxide 400 mg (241.3 mg 800 mg PO DAILY SUPPLEMENT 08/01/21 10/11/23 History magnesium) tablet potassium chloride 20 mEq 60 meq PO BID supplement 08/01/21 10/11/23 History tablet,extended release(part/cryst) cetirizine 10 mg tablet 10 mg PO DAILY PRN Allergic 09/16/21 10/11/23 History Reaction cholecalciferol (vitamin D3) [address] 09/16/21 10/11/23 History mcg (1,000 unit) tablet fluoxetine 40 mg capsule 80 mg PO DAILY DEPRESSION 90 days 09/16/21 10/11/23 History #180 caps metformin 500 mg tablet 500 mg PO BID DM 08/19/22 10/11/23 History nitroglycerin 0.4 mg sublingual 0.4 mg sublingual Q5-15M PRN CHEST 08/19/22 10/12/23 Rx tablet PAIN #25 tabs isosorbide mononitrate 60 mg 60 mg PO DAILY #30 tabs 10/13/22 10/11/23 Rx tablet,extended release 24 hr atorvastatin 40 mg tablet 40 mg PO QHS CHOLESTEROL #90 tabs 11/04/22 10/11/23 Rx pantoprazole 40 mg tablet,delayed 40 mg PO DAILY GERD #90 tabs 12/15/22 10/12/23 Rx release furosemide 40 mg tablet 80 mg (2 x 40 mg) PO DAILY 03/24/23 10/11/23 Rx diuretic #180 tabs clopidogrel 75 mg tablet [address] #90 tabs 07/07/23 10/11/23 Rx carvedilol 6.25 mg tablet (Coreg) 6.25 mg PO BID #60 tabs 09/16/23 10/11/23 Rx amlodipine 5 mg tablet 5 mg PO DAILY #30 tabs 09/24/23 10/11/23 Rx losartan 100 mg tablet 100 mg PO DAILY #90 tabs 10/01/23 10/11/23 Rx ranolazine 500 mg tablet,extended 500 mg PO BID take with food #60 10/01/23 10/11/23 Rx release,12 hr tabs acetaminophen 325 mg tablet 650 mg PO Q6H PRN Pain 1-02/0910/12/23 Unknown History empagliflozin 25 mg tablet 25 mg PO DAILY 10/12/23 10/11/23 History (Jardiance) spironolactone 50 mg tablet 50 mg PO DAILY 10/12/23 10/11/23 History Allergy/AdvReac Type Severity Reaction Status Date / Time No Known Allergies Allergy Verified 09/16/23 09:25 Family History Father Parkinsons disease Prostate cancer Mother Osteoporosis Surgical History Presence of coronary angioplasty implant and graft (~08/31/22) History of tympanostomy tube placement History of percutaneous transluminal coronary angioplasty (08/18/18) History of herniorrhaphy Hx of cholecystectomy History of tonsillectomy History of prostatectomy Social History household members: spouse and none Smoking Status: Former smoker quit date: 05/03/98 pack-years: 50 how long ago did patient quit smokin years ago alcohol intake: never substance use type: does not use caffeine: Yes Type: coffee and tea Number of servings: 6 ROS Constitutional Constitutional: Denies fever(s) or weight loss Eyes Eyes: Reports systems reviewed and no addt'l complaints, except as documented ENT HEENT: Reports systems reviewed and no addt'l complaints, except as documented Cardiovascular Cardiovascular: Denies chest pain at rest, chest pain with activity, dyspnea at rest, dyspnea on exertion, edema, palpitations or paroxysmal nocturnal dyspnea Respiratory/Chest Respiratory/Chest: Denies dyspnea on exertion, productive cough, shortness of breath at rest or shortness of breath with exertion Gastrointestinal Gastrointestinal: Denies change in bowel habits, nausea, vomiting or weight changes Genitourinary Genitourinary: Denies difficulty urinating Musculoskeletal Musculoskeletal: Denies joint stiffness or muscle weakness Integumentary Integumentary: Denies lesions Neurologic Neurologic: Denies dizziness or syncope Psychiatric Psychiatric: Denies anxiety Endocrine Endocrinology: Denies excessive sweating or fatigue Hematologic/Lymphatic Hematologic/Lymphatic: Denies anemia Allergic/Immunologic Allergic/Immunologic: Denies seasonal rhinorrhea Physical Exam Const alert, oriented x3 and no apparent distress General Appearance: cooperative HEENT hearing grossly normal bilaterally Head and Scalp: atraumatic Eyes EOMs intact bilaterally Neck General: normal visual inspection Chest inspection of chest normal and palpation of chest normal Resp normal respiratory effort Auscultation: clear to auscultation bilaterally Cardio regular rate, regular rhythm, S1 normal heart sound and S2 normal heart sound Jugular Venous Distention: JVD GI normal to inspection, nondistended, normoactive bowel sounds Extremity normal capillary refill and no pedal edema Peripheral Pulses: Yes pulses 2+ throughout and femoral pulses present Skin no rashes or lesions noted Neuro oriented x3 and CN's II-XII intact bilaterally Psych Appearance: grossly normal and appropriate Risk Stratification Risk Stratification Applicable: Yes Age >/= 65: Yes >/= 3 CAD Risk Factors (HTN, HLD, DM, family hx of CAD, or current smoker): Yes Aspirin Use in the Past 7 Days: Yes Severe Angina (>/= episodes in 24 hours): No EKG ST Changes >/= 0.5mm: No Positive Cardiac Marker: No DEXTER Risk Stratification Score: 3 DEXTER % Risk: 13% Risk Objective Data Vital Signs: Vital Signs Temp Pulse Resp BP Pulse Ox O2 Del Method 96.7 F L 65 16 122/71 H 98 Room Air 10/13/23 08:34 10/13/23 08:34 10/13/23 08:34 10/13/23 08:34 10/13/23 08:34 10/13/23 08:34 Oxygen Delivery Method Room Air Weight: 227 lb 15.327 oz Body Mass Index (BMI) 34.5 Intake & Output: Intake and Output for Last 24 Hours 10/11/23 10/12/23 10/13/23 23:59 23:59 23:59 Intake Total 1069.83 / 1569.83 1367.12 / 1367.12 Output Total 1050 / 1050 Balance 1069.83 / 1019.83 317.12 / 317.12 Lab / Micro Data 10/13/23 04:51 10/13/23 04:51 Labs: Laboratory Results - last 24 hr 10/12/23 13:25: WBC 9.2, RBC 5.53, Hgb 15.6, Hct 49.3, MCV 89.2, MCH 28.2, MCHC 31.6 L, RDW Std Deviation 46.7 H, RDW Coeff of Adrian 14.2, Plt Count 137 L, MPV 12.7 H, Immature Gran % (Auto) 0.400, Neut % (Auto) 79.1 H, Lymph % (Auto) 11.4 L, [place] % (Auto) 8.0, Eos % (Auto) 0.8, Baso % (Auto) 0.3, Absolute Neuts (auto) 7.3, Absolute Lymphs (auto) 1.05, Nucleated RBC % 0, PT 13.6, INR 1.0, APTT 29.5, Sodium 134 L, Potassium 4.9, Chloride 106, Carbon Dioxide 22.0, Anion Gap 6, BUN 17, Creatinine 1.36 H, Estim Creat Clear Calc 52.60, Est GFR (MDRD) Af Amer 65, Est GFR (MDRD) Non-Af 54 L, BUN/Creatinine Ratio 12.5, Glucose 166 H, Calcium 9.1, Troponin I High Sens 5 10/12/23 15:30: Troponin I High Sens 6 10/12/23 19:55: Troponin I High Sens 8 10/12/23 22:30: APTT 52.0 H 10/13/23 04:51: WBC 7.8, RBC 4.60, Hgb 13.4, Hct 41.8, MCV 90.9, MCH 29.1, MCHC 32.1, RDW Std Deviation 46.7 H, RDW Coeff of Adrian 13.9, Plt Count 115 L, MPV 12.0, Immature Gran % (Auto) 0.300, Neut % (Auto) 67.6, Lymph % (Auto) 20.9, [place] % (Auto) 9.6, Eos % (Auto) 1.2, Baso % (Auto) 0.4, Absolute Neuts (auto) 5.3, Absolute Lymphs (auto) 1.63, Nucleated RBC % 0, APTT 107.6 H*, Sodium 138, Potassium 4.2, Chloride 108 H, Carbon Dioxide 26.0, Anion Gap 4 L, BUN 17, Creatinine 1.38 H, Estim Creat Clear Calc 51.42, Est GFR (MDRD) Af Amer 64, Est GFR (MDRD) Non-Af 53 L, BUN/Creatinine Ratio 12.3, Glucose 155 H, Calcium 8.5, Total Bilirubin 1.30 H, AST 19, ALT 34, Alkaline Phosphatase 105, Total Protein 5.8 L, Albumin 3.0 L, Globulin 2.8, Albumin/Globulin Ratio 1.1 Rhythm Strip Rhythm Strip: Sinus Rhythm Rate: 65 Ectopy: None Cardiology Labs/Tests 10/12/23 13:25: WBC 9.2, RBC 5.53, Hgb 15.6, Hct 49.3, MCV 89.2, MCH 28.2, MCHC 31.6 L, Plt Count 137 L, MPV 12.7 H, Immature Gran % (Auto) 0.400, Neut % (Auto) 79.1 H, Lymph % (Auto) 11.4 L, [place] % (Auto) 8.0, Eos % (Auto) 0.8, Baso % (Auto) 0.3, Absolute Neuts (auto) 7.3, Nucleated RBC % 0, PT 13.6, INR 1.0, APTT 29.5, Sodium 134 L, Potassium 4.9, Chloride 106, Carbon Dioxide 22.0, Anion Gap 6, BUN 17, Creatinine 1.36 H, Est GFR (MDRD) Af Amer 65, Est GFR (MDRD) Non-Af 54 L, BUN/Creatinine Ratio 12.5, Glucose 166 H, Calcium 9.1 10/12/23 22:30: APTT 52.0 H 10/13/23 04:51: WBC 7.8, RBC 4.60, Hgb 13.4, Hct 41.8, MCV 90.9, MCH 29.1, MCHC 32.1, Plt Count 115 L, MPV 12.0, Immature Gran % (Auto) 0.300, Neut % (Auto) 67.6, Lymph % (Auto) 20.9, [place] % (Auto) 9.6, Eos % (Auto) 1.2, Baso % (Auto) 0.4, Absolute Neuts (auto) 5.3, Nucleated RBC % 0, APTT 107.6 H*, Sodium 138, Potassium 4.2, Chloride 108 H, Carbon Dioxide 26.0, Anion Gap 4 L, BUN 17, Creatinine 1.38 H, Est GFR (MDRD) Af Amer 64, Est GFR (MDRD) Non-Af 53 L, BUN/Creatinine Ratio 12.3, Glucose 155 H, Calcium 8.5, Total Bilirubin 1.30 H Rhythm: EKG: ECHO: Stress Test: Cardiac Cath: PCI: CT Surgery: Holter monitor: EPS: PPM: CXR: Chest CT Scan: Radiography Diagnostic Testing: Radiology Impression Chest X-Ray 10/12/23 13:30 IMPRESSION: There is evidence of multiple healed right-sided rib fractures with underlying pleural thickening. No acute infiltrate is seen. Electronically Signed: Constantin Lee MD at 13:51 EDT ,
--- NOTE | 2023-10-13 09:26 | CASEMGMT ---
Insurance review for hospitals In-network with?MCR insurance if transfer is recommended is as follows: [facility], [place], [facility], [facility], [facility], [facility] ([facility]), [facility], [facility], and . Maria R Elliott, Discharge Planning Asst.
--- NOTE | 2023-10-13 09:44 | CL.D_ITS ---
Patient Name: GERRY GARCIA Study Date: 10/13/2023 Performing: Marcin Araujo MD Ht: 68.11 inches 173 cm : 1945 Wt: 227.96 lbs 103.4 kg Age: 78 Gender: male BSA: 2.16 PROCEDURE(S) PERFORMED DC01-([id number])LHC/COR/LV CLINICAL PROFILE AND INDICATIONS Indications: Suspected CAD Heart Failure: None Stress/Imaging Date: 09/13/23Stress Test with SPECT MPI: Negative CAD Presentations: Symptom unlikely to be ischemic. CONCLUSIONS Patent coronary anatomy with previously placed stent in the right coronary artery which is patent with mild in-stent stenosis. 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 RECOMMENDATIONS Medical therapy DESCRIPTION OF PROCEDURE The patient arrived to the procedure lab. The risks and benefits of the procedure as well as a full description of our services here and current unavailability of surgical backup were fully explained to the patient and/or their significant other prior to the catheterization. The Timeout was completed, verifying the correct patient and procedure. The patient's procedural site was prepped and draped in the usual fashion. Local anesthetic was given subcutaneously to right groin region with Lidocaine 2%. Using a modified Seldinger technique, arterial access was obtained via the right femoral artery, a 5Fr sheath was inserted. Left Coronary Artery selective angiography was performed in multiple views using a 5 Fr. JL4 catheter. Right Coronary Artery selective angiography was then performed in multiple views using a 5 Fr. 3DRC (Maximo) catheter. Right Coronary Artery selective angiography was then performed in multiple views using a 5 Fr. JR 5 catheter. Left Ventriculography was performed in JOSEPH projection using a 5 Fr. Pigtail catheter. 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 No high-grade stenosis is noted in this vessel. RIGHT CORONARY ARTERY: There is a dominant vessel previously stented in the proximal and mid regions. There is approximately 30% in-stent stenosis present. The rest of the vessel has mild luminal irregularities present. COMPLICATIONS No Complications PROCEDURE MEDICATIONS Versed 1 mg IV Fentanyl 50 mcg IV Oxygen: 2 L/min via nasal cannula SUMMARY OF HEMODYNAMIC DATA Time AIR REST ECG 09:10:00 AO 122/76 (96) SA 09:20:18 LV 94/7, 23 09:31:12 LV 96/7, 22 09:31:20 LV 93/5, 18 09:32:03 LV 94/7, 18 09:32:05 LVp 98/8, 23 09:32:09 AOp 91/48 (65) 09:32:16 Signed By Marcin Araujo MD On 10/13/2023 09:44:16 Marcin Araujo MD
--- NOTE | 2023-10-13 11:56 | DCINST_ITS ---
Discharge Instructions Diet Discharge Diet: 1800 Calorie Control Diet Activity Discharge Activity: Return to Normal Activity Weight Bearing Status: Full weight bearing Follow Up Care Test Results: Test results from this visit will be discussed in further detail at your follow- up appointment, if applicable. Discharge Plan Admission Admit Date/Time: 10/12/23 17:23 Primary Reason for Your Visit: chest pain Attending Provider: Victor M Marlow Primary Care Provider: Victor M Luke Consulting Providers: Marcin Araujo; Jw Rock Discharge Orders/Prescriptions Prescriptions: Continued fluoxetine 40 mg capsule 80 mg PO DAILY 90 Days Qty: 180 magnesium oxide 400 mg (241.3 mg magnesium) tablet 800 mg PO DAILY potassium chloride 20 mEq tablet,ER particles/crystals 60 meq PO BID cetirizine 10 mg tablet 10 mg PO DAILY PRN (Reason: Allergic Reaction) cholecalciferol (vitamin D3) 25 mcg (1,000 unit) tablet 25 mcg PO DAILY nitroglycerin 0.4 mg tablet, sublingual 0.4 mg SUBLINGUAL Q5-15M PRN (Reason: CHEST PAIN) Qty: 25 3RF metformin 500 mg tablet 500 mg PO BID isosorbide mononitrate 60 mg tablet extended release 24 hr 60 mg PO DAILY Qty: 30 11RF pantoprazole 40 mg tablet,delayed release (DR/EC) 40 mg PO DAILY Qty: 90 3RF carvedilol [Coreg] 6.25 mg tablet 6.25 mg PO BID Qty: 60 11RF Rx Instructions: must administer with a meal/food aspirin 81 MG tablet 81 mg PO DAILY@0800 cyanocobalamin (vitamin B-12) 1,000 MCG capsule 1,000 mcg PO DAILY Qty: 0 Jardiance 25 mg tablet 25 mg PO DAILY acetaminophen 325 MG tablet 650 mg PO Q6H PRN (Reason: Pain -02/09) spironolactone 50 mg tablet 50 mg PO DAILY mirtazapine [Remeron] 15 mg tablet 15 mg PO QHS atorvastatin 40 mg tablet 40 mg PO QHS Qty: 90 3RF furosemide 40 mg tablet 80 mg PO DAILY Qty: 180 3RF Patient Comments: Hold if systolic blood pressure less than 120 mmHg clopidogrel 75 mg tablet 75 mg PO DAILY Qty: 90 3RF amlodipine 5 mg tablet 5 mg PO DAILY Qty: 30 11RF losartan 100 mg tablet 100 mg PO DAILY Qty: 90 3RF ranolazine 500 mg tablet extended release 12 hr 500 mg PO BID Qty: 60 11RF Referrals / Follow Up: Victor M Luke DO [Primary Care Provider] - Disposition Disposition (needs filled in before D/C Order can be placed): Home, Self Care
--- NOTE | 2023-10-13 12:08 | CASEMGMT ---
Patient has order for discharge. RN CM in to discuss needs at discharge, at bedside. Patient and deny needs or help at discharge. Patient had no further questions or concerns.
--- NOTE | 2023-10-13 13:12 | PHA.DC.MR.R ---
Pharmacy [place] Med Reconciliation Pharmacy Service has performed discharge medication reconciliation for this patient. The patient's discharge medication list was reviewed for discrepancies and discrepancies were resolved. Medications at Discharge Home Medications aspirin 81 mg tablet,delayed release 81 mg PO DAILY@0800 health maintenance 01/21/17 mirtazapine 15 mg tablet (Remeron) 15 mg PO QHS sleep 09/21/18 cyanocobalamin (vitamin B-12) 1,000 mcg capsule 1,000 mcg PO DAILY vitamin ##0 06/01/19 magnesium oxide 400 mg (241.3 mg magnesium) tablet 800 mg PO DAILY SUPPLEMENT 08/01/21 potassium chloride 20 mEq tablet,extended release(part/cryst) 60 meq PO BID supplement 08/01/21 cetirizine 10 mg tablet 10 mg PO DAILY PRN Allergic Reaction 09/16/21 cholecalciferol (vitamin D3) 25 mcg (1,000 unit) tablet [address] 09/16/21 fluoxetine 40 mg capsule 80 mg PO DAILY DEPRESSION 90 days #180 caps 09/16/21 metformin 500 mg tablet 500 mg PO BID DM 08/19/22 nitroglycerin 0.4 mg sublingual tablet 0.4 mg sublingual Q5-15M PRN CHEST PAIN #25 tabs 08/19/22 isosorbide mononitrate 60 mg tablet,extended release 24 hr 60 mg PO DAILY #30 tabs 10/13/22 atorvastatin 40 mg tablet 40 mg PO QHS CHOLESTEROL #90 tabs 11/04/22 pantoprazole 40 mg tablet,delayed release 40 mg PO DAILY GERD #90 tabs 12/15/22 furosemide 40 mg tablet 80 mg (2 x 40 mg) PO DAILY diuretic #180 tabs 03/24/23 clopidogrel 75 mg tablet [address] #90 tabs 07/07/23 carvedilol 6.25 mg tablet (Coreg) 6.25 mg PO BID #60 tabs 09/16/23 amlodipine 5 mg tablet 5 mg PO DAILY #30 tabs 09/24/23 losartan 100 mg tablet 100 mg PO DAILY #90 tabs 10/01/23 ranolazine 500 mg tablet,extended release,12 hr 500 mg PO BID take with food #60 tabs 10/01/23 acetaminophen 325 mg tablet 650 mg PO Q6H PRN Pain 1-02/0910/12/23 empagliflozin 25 mg tablet (Jardiance) 25 mg PO DAILY 10/12/23 spironolactone 50 mg tablet 50 mg PO DAILY 10/12/23
--- NOTE | 2023-10-14 09:20 | PCM.DC.SUM ---
Providers Date of Admission: 10/12/23 Date of Discharge: 10/13/23 Primary Care Physician: Dr. Victor M Luke, Consultations 10/13/23 05:09 Consult: Cardiology Routine Consulting Provider: Marcin Araujo Reason for Consult: chest pain EMERGENT Consult: No MD Notified: Yes Date Notified: 10/13/23 Time Notified: 06:27 Method of Notification: Text Reason For Visit: chest pain Diagnosis Discharge Diagnosis (1) Unstable angina: Status: Acute Code(s): I20.0 - Unstable angina (2) Presence of stent in coronary artery: Status: Acute Code(s): Z95.5 - Presence of coronary angioplasty implant and graft (3) Essential hypertension: Status: Chronic Code(s): I10 - Essential (primary) hypertension (4) Hyperlipidemia: Status: Chronic Code(s): E78.5 - Hyperlipidemia, unspecified Qualifiers: Hyperlipidemia type: unspecified Qualified Code(s): E78.5 - Hyperlipidemia, unspecified Plan 1. Noncardiac chest pain-musculoskeletal in nature #2 coronary artery disease #3 type 2 diabetes #4 essential hypertension #5 chronic kidney disease stage IIIa Medications at Discharge Home Medications aspirin 81 mg tablet,delayed release 81 mg PO DAILY@0800 health maintenance 01/21/17 mirtazapine 15 mg tablet (Remeron) 15 mg PO QHS sleep 09/21/18 cyanocobalamin (vitamin B-12) 1,000 mcg capsule 1,000 mcg PO DAILY vitamin ##0 06/01/19 magnesium oxide 400 mg (241.3 mg magnesium) tablet 800 mg PO DAILY SUPPLEMENT 08/01/21 potassium chloride 20 mEq tablet,extended release(part/cryst) 60 meq PO BID supplement 08/01/21 cetirizine 10 mg tablet 10 mg PO DAILY PRN Allergic Reaction 09/16/21 cholecalciferol (vitamin D3) 25 mcg (1,000 unit) tablet [address] 09/16/21 fluoxetine 40 mg capsule 80 mg PO DAILY DEPRESSION 90 days #180 caps 09/16/21 metformin 500 mg tablet 500 mg PO BID DM 08/19/22 nitroglycerin 0.4 mg sublingual tablet 0.4 mg sublingual Q5-15M PRN CHEST PAIN #25 tabs 08/19/22 isosorbide mononitrate 60 mg tablet,extended release 24 hr 60 mg PO DAILY #30 tabs 06/13/23 atorvastatin 40 mg tablet 40 mg PO QHS CHOLESTEROL #90 tabs 11/04/22 pantoprazole 40 mg tablet,delayed release 40 mg PO DAILY GERD #90 tabs 12/15/22 furosemide 40 mg tablet 80 mg (2 x 40 mg) PO DAILY diuretic #180 tabs 03/24/23 clopidogrel 75 mg tablet [address] #90 tabs 07/07/23 carvedilol 6.25 mg tablet (Coreg) 6.25 mg PO BID #60 tabs 09/16/23 amlodipine 5 mg tablet 5 mg PO DAILY #30 tabs 09/24/23 losartan 100 mg tablet 100 mg PO DAILY #90 tabs 10/01/23 ranolazine 500 mg tablet,extended release,12 hr 500 mg PO BID take with food #60 tabs 10/01/23 acetaminophen 325 mg tablet 650 mg PO Q6H PRN Pain 1-02/0910/12/23 empagliflozin 25 mg tablet (Jardiance) 25 mg PO DAILY 10/12/23 spironolactone 50 mg tablet 50 mg PO DAILY 10/12/23 Hospital Course Operations None Procedures Cardiac catheterization Summary of Care Provided Minutes Spent on Discharge: 30 Hospital Course: This 78-year-old white male was seen in the emergency room at [facility] with complaints of intermittent chest pain over 48 hours. Patient has a history of coronary artery disease the past. Workup in the emergency room included a chest x-ray which was negative for acute pathology, patient's cardiac enzymes were unremarkable, patient's EKG did not show any ischemic pattern. Patient was placed in observation status on PCU, cardiac enzymes were repeated and these remain normal. Patient underwent a cardiac catheterization on 10/13/2023 which showed nonocclusive coronary disease. No intervention was required. Patient was seen and examined on 10/13/2023: On examination he appeared in good health and spirits. Vital signs as documented. Skin warm and dry and without overt rashes. Neck without JVD, neck was supple, trachea midline, thyroid was normal. Lungs clear bilaterally, normal air movement was noted. Heart exam notable for regular rhythm, normal sounds and absence of murmurs, rubs or gallops. Abdomen unremarkable and without evidence of organomegaly, masses, or abdominal aortic enlargement. Bowel sounds are present, abdomen is not distended. Extremities nonedematous, no cyanosis was noted, no clubbing was noted. Neuro: Cranial nerves II through XII are grossly intact, no focal motor deficits were noted, sensation to light touch and pinprick intact, motor exam 5/5 throughout. Psych: Patient is alert and oriented x3, he does not appear anxious or depressed, he does not appear agitated. Patient was discharged home in stable condition on 10/13/2023. Weight / BMI Weight Weight: 103.4 kg Body Mass Index (BMI) 34.5 ABG / Lab / Microbiology Data 10/13/23 04:51 10/13/23 04:51 D/C Instructions Discharge Diet: 1800 Calorie Control Diet Weight Bearing Status: Full weight bearing Meaningful Use Info Meaningful Use Meaningful Use Diagnoses (Choose all that apply): None applicable Ischemic Stroke Statin Dosing Therapy Reference: STATIN DOSE THERAPY REFERENCE: * Patients > 75 years receive moderate or high dose statin therapy. * Patients 75 years or YOUNGER should receive HIGH intensity statin dose unless contraindicated. You will be required to document reason for non-treatment if statin daily dose does not meet guidelines. HIGH DOSE STATIN THERAPY DAILY Atorvastatin > than or = to 40 mg Rosuvastatin > than or = to 20 mg Amlodipine + Atorvastatin > than or = to 2.5/40 mg Ezetimibe + Simvastatin 10/80 mg Simvastatin 80mg Discharge Plan Admission Admit Date/Time: 10/12/23 17:23 Primary Reason for Your Visit: chest pain Attending Provider: Victor M Marlow Primary Care Provider: Victor M Luke Consulting Providers: Marcin Araujo; Jw Rock Discharge Orders/Prescriptions Prescriptions: Continued fluoxetine 40 mg capsule 80 mg PO DAILY 90 Days Qty: 180 magnesium oxide 400 mg (241.3 mg magnesium) tablet 800 mg PO DAILY potassium chloride 20 mEq tablet,ER particles/crystals 60 meq PO BID cetirizine 10 mg tablet 10 mg PO DAILY PRN (Reason: Allergic Reaction) cholecalciferol (vitamin D3) 25 mcg (1,000 unit) tablet 25 mcg PO DAILY nitroglycerin 0.4 mg tablet, sublingual 0.4 mg SUBLINGUAL Q5-15M PRN (Reason: CHEST PAIN) Qty: 25 3RF metformin 500 mg tablet 500 mg PO BID isosorbide mononitrate 60 mg tablet extended release 24 hr 60 mg PO DAILY Qty: 30 11RF pantoprazole 40 mg tablet,delayed release (DR/EC) 40 mg PO DAILY Qty: 90 3RF carvedilol [Coreg] 6.25 mg tablet 6.25 mg PO BID Qty: 60 11RF Rx Instructions: must administer with a meal/food aspirin 81 MG tablet 81 mg PO DAILY@0800 cyanocobalamin (vitamin B-12) 1,000 MCG capsule 1,000 mcg PO DAILY Qty: 0 Jardiance 25 mg tablet 25 mg PO DAILY acetaminophen 325 MG tablet 650 mg PO Q6H PRN (Reason: Pain -02/09) spironolactone 50 mg tablet 50 mg PO DAILY mirtazapine [Remeron] 15 mg tablet 15 mg PO QHS atorvastatin 40 mg tablet 40 mg PO QHS Qty: 90 3RF furosemide 40 mg tablet 80 mg PO DAILY Qty: 180 3RF Patient Comments: Hold if systolic blood pressure less than 120 mmHg clopidogrel 75 mg tablet 75 mg PO DAILY Qty: 90 3RF amlodipine 5 mg tablet 5 mg PO DAILY Qty: 30 11RF losartan 100 mg tablet 100 mg PO DAILY Qty: 90 3RF ranolazine 500 mg tablet extended release 12 hr 500 mg PO BID Qty: 60 11RF Referrals / Follow Up: Victor M Luke DO [Primary Care Provider] - Disposition Disposition (needs filled in before D/C Order can be placed): Home, Self Care Charges/Coding Visit Charges Inpatient E&M: 88534 Disch Hosp
== END 2023-10-13 11:59 | disposition home or self-care (01) ==
LOC: ED 16:21 → PCU 17:30
PROVIDERS: Admitting Provider Internal Medicine; Emergency Provider Emergency Medicine; PCP Family Medicine; Visit Provider Internal Medicine
DX: I25.110 Atherosclerotic heart disease of native coronary artery with unstable angina pectoris (principal); I50.9 Heart failure, unspecified; I13.0 Hypertensive heart and chronic kidney disease with heart failure and stage 1 through stage 4 chronic kidney disease, or unspecified chronic kidney disease; J44.9 Chronic obstructive pulmonary disease, unspecified; E66.01 Morbid (severe) obesity due to excess calories; E11.22 Type 2 diabetes mellitus with diabetic chronic kidney disease; N18.31 Chronic kidney disease, stage 3a; Z79.84 Long term (current) use of oral hypoglycemic drugs; Z87.891 Personal history of nicotine dependence; E78.5 Hyperlipidemia, unspecified; Z79.02 Long term (current) use of antithrombotics/antiplatelets; Z95.5 Presence of coronary angioplasty implant and graft; Z79.899 Other long term (current) drug therapy; G47.33 Obstructive sleep apnea (adult) (pediatric); Z68.35 Body mass index [BMI] 35.0-35.9, adult; R07.89 Other chest pain
CPT/HCPCS: 36415; 71045; 80048; 80053; 84484; 85025; 85610; 85730; 93005; 93458; 96361; 96365; 96366; 96376; 99152; 99153; 99221; 99285; C1760; J7030; Q9967; A4216; C1769; G0378

== ENCOUNTER → 2023-10-22 | Outpatient (CLI) | payer MEDICARE, OTHER, SELFPAY ==
[2018-08-03 13:04] VITALS: BMI 19.8
--- NOTE | 2023-10-22 07:47 | ECHOCS_ITS ---
Reason For Study: DEAN Procedure This was a 2D Doppler, Color Flow transthoracic echocardiogram. The study was technically difficult. Due to poor accoustic windows and body habitus. Contrast injection was performed. Exam performed in department. Left Ventricle Normal LV size. Mild concentric left ventricular hypertrophy. The left ventricular ejection fraction is 55 %. Stage 1 diastolic dysfunction. Right Ventricle Normal right ventricle. Atria The left and right atria are normal. Mitral Valve The mitral valve is structurally normal. No prolapse or stenosis seen. Tricuspid Valve Normal tricuspid valve. Aortic Valve Moderate diffuse aortic valve calcification. Pulmonic Valve The pulmonic valve is not well visualized. Great Vessels Normal sized aortic root. Pericardium/Pleural No pericardial effusion. Medication 22 gauge I.V. with prn adaptor inserted into right arm. Diluted definity 2.0ml given slow IV push to enhance endocardial definition. MMode/2D Measurements & Calculations LVIDd: 4.6 cm IVSd: 1.2 cm Ao root diam: 2.8 cm LVIDs: 3.0 cm LVPWd: 1.2 cm RVDd: 3.4 cm FS: 33.2 % LAV(MOD-bp): 49.7 ml LVAd ap4: 26.4 cm2 SV(MOD-sp4): 41.0 ml LAV(MOD-bp) Indexed: 22.7 ml/m2 LVLd ap4: 7.9 cm LAV(MOD-sp2): 43.6 ml EDV(MOD-sp4): 74.3 ml LAV(MOD-sp4): 47.9 ml EDV(sp4-el): 74.6 ml LVAs ap4: 16.1 cm2 LVLs ap4: 6.5 cm ESV(MOD-sp4): 33.3 ml ESV(sp4-el): 33.6 ml EF(MOD-sp4): 55.2 % EF(sp4-el): 54.9 % SV(sp4-el): 41.0 ml LA A4 area: 16.8 cm2 LA dimension(2D): 3.6 cm RA A4 area: 14.0 cm2 TAPSE: 1.9 cm Time Measurements MV dec time: 0.25 sec Doppler Measurements & Calculations MV E max nicho: 59.4 cm/sec Lat Peak E' Nicho: 9.5 cm/sec Med Peak E' Nicho: 9.2 cm/sec MV A max nicho: 92.7 cm/sec E/E' lat: 6.2 E/E' med: 6.5 MV E/A: 0.64 MV V2 max: 85.3 cm/sec MV P1/2t max nicho: 62.7 cm/sec Ao V2 max: 169.0 cm/sec MV max P.9 mmHg MV P1/2t: 75.9 msec Ao max P.4 mmHg MV V2 mean: 43.2 cm/sec MV dec slope: 242.1 cm/sec2 Ao V2 mean: 118.7 cm/sec MV mean P.87 mmHg MVA(P1/2t): 2.9 cm2 Ao mean P.2 mmHg MV V2 VTI: 23.8 cm Ao V2 VTI: 32.4 cm AV (velocity ratio): 0.66 LV V1 max: 108.4 cm/sec PA V2 max: 136.5 cm/sec LV V1 max P.7 mmHg PA V2 mean: 98.3 cm/sec LV V1 mean P.8 mmHg LV V1 mean: 79.8 cm/sec LV V1 VTI: 21.3 cm ECHO/Echo Complete W/ Contrast Interpretation Summary The study was technically difficult. Mild concentric left ventricular hypertrophy. The left ventricular ejection fraction is 55 %. Stage 1 diastolic dysfunction. Moderate diffuse aortic valve calcification. Leaflet excursion limited however no significant gradient. Mean peak gradient 6.2 mmHg. Ordering Physician: Adina Mariscal Referring Physician: Victor M Luke Performed By: Treva Black, DRU, RVT
== END | disposition home or self-care (01) ==
LOC: CVS 07:44
PROVIDERS: PCP Family Medicine; Referring Provider Physician Assistant Medical; Visit Provider Physician Assistant Medical
DX: R06.00 Dyspnea, unspecified (principal)
CPT/HCPCS: 93306; Q9957; A4216; C8929

== ENCOUNTER → 2023-11-18 | Outpatient (CLI) | payer MEDICARE, OTHER, SELFPAY ==
[2018-08-03 13:04] VITALS: BMI 19.8
[2023-11-18 13:09] LABS: AST(SGOT) 19 U/L (15-37); Alanine Aminotransfer ALT/SGPT 30 U/L (16-61); Albumin, Serum 3.5 g/dL (3.2-5.0); Alkaline Phosphatase 110 U/L (45-117); Bilirubin, Direct 0.23 mg/dL (0.00-0.30); Cholesterol 177 mg/dL (200); Globulin 3.5 g/dL (2.2-4.2); High Density Lipoprotein 60 mg/dL; Triglycerides 244 mg/dL; Very Low Density Lipoprotein 49 mg/dL (5-40)
== END | disposition home or self-care (01) ==
LOC: BFHLAB 11:06
PROVIDERS: Nurse Practitioner Gerontology; PCP Family Medicine; Referring Provider Family Medicine; Visit Provider Family Medicine
DX: I25.10 Atherosclerotic heart disease of native coronary artery without angina pectoris (principal); E78.5 Hyperlipidemia, unspecified
CPT/HCPCS: 36415; 80061; 80076

== ENCOUNTER → 2024-03-23 | Outpatient (CLI) | payer MEDICARE, OTHER, SELFPAY ==
[2018-08-03 13:04] VITALS: BMI 19.8
[2024-03-23 15:35] LABS: ALB/GLOB Ratio 1.1 RATIO (0.9-2.4); AST(SGOT) 28 U/L (15-37); Alanine Aminotransfer ALT/SGPT 52 U/L (16-61); Albumin, Serum 3.7 g/dL (3.2-5.0); Alkaline Phosphatase 92 U/L (45-117); Anion Gap 6 (5-15); BUN 30 mg/dL (7-18); Calcium,Total 8.8 mg/dL (8.5-10.1); Chloride 104 mmol/L (98-107); Cholesterol 158 mg/dL (200); Creatinine, Serum 1.67 mg/dL (0.70-1.30); EST Glomerular Filtration Rate 42 mL/min (>60); Est Glom Filt Rate - Afr Amer 51 mL/min (>60); Globulin 3.3 g/dL (2.2-4.2); Glucose 146 mg/dL (74-106); High Density Lipoprotein 52 mg/dL; Magnesium 2.1 mg/dL (1.6-2.6); Potassium 4.4 mmol/L (3.5-5.1); Sodium Level 138 mmol/L (136-145); Triglycerides 225 mg/dL; Very Low Density Lipoprotein 45 mg/dL (5-40)
== END | disposition home or self-care (01) ==
LOC: BFHLAB 13:13
PROVIDERS: Internal Medicine Cardiovascular Disease; PCP Family Medicine; Visit Provider Family Medicine
DX: N18.31 Chronic kidney disease, stage 3a (principal); R25.2 Cramp and spasm
CPT/HCPCS: 36415; 80053; 80061; 83735; 84443

== ENCOUNTER → 2024-04-17 | Outpatient (CLI) | payer MEDICARE, OTHER, SELFPAY ==
[2018-08-03 13:04] VITALS: BMI 19.8
[2024-04-17 17:06] LABS: Absolute Lymphocyte Count 1.29 X10^3/uL (0.83-4.51); Basophil# 0.04 X10^3/uL; Basophil% 0.5 % (0-1); Eosinophils% 1.2 % (0-5); Hemoglobin 13.2 g/dL (13.0-16.5); Lymphocyte # 1.29 X10^3/ul (0.83-4.51); Lymphocyte % 15.7 % (19-41); Mean Corp Hgb Conc 32.2 g/dL (32-36); Mean Corpuscular Hgb 29.2 pg (27.0-32.0); Mean Corpuscular Volume 90.7 fL (80-94); Mean Platelet Vol. 12.3 fl (6.2-12.0); Monocyte% 8.5 % (0-10); NRBC Flagged by Analyzer 0 % (0-5); Neutrophil # 6.02 X10^3/uL (2.7-7.7); Neutrophil % 73.5 % (47-70); Platelet Count 185 K/mm3 (150-450); RBC Distribution Width CV 13.9 % (11.6-14.6); RBC Distribution Width SD 46.4 fl (35.1-43.9); Red Blood Count 4.52 M/mm3 (4.6-6.2); White Blood Count 8.2 K/mm3 (4.4-11.0)
[2024-04-17 17:27] LABS: Anion Gap 4 (5-15); BUN 20 mg/dL (7-18); BUN/Creat Ratio 11.2 RATIO (10-20); Chloride 107 mmol/L (98-107); Creatinine, Serum 1.79 mg/dL (0.70-1.30); EST Glomerular Filtration Rate 39 mL/min (>60); Est Glom Filt Rate - Afr Amer 47 mL/min (>60); Glucose 228 mg/dL (74-106); Potassium 4.8 mmol/L (3.5-5.1); Sodium Level 138 mmol/L (136-145)
[2024-04-17 19:10] LABS: BNP,B-Type NATRIURETIC PEPTIDE 37.2 pg/mL (0-100)
== END | disposition home or self-care (01) ==
LOC: LAB 16:51
PROVIDERS: PCP Family Medicine; Referring Provider Nurse Practitioner Family; Visit Provider Nurse Practitioner Family
DX: R06.09 Other forms of dyspnea (principal); I25.10 Atherosclerotic heart disease of native coronary artery without angina pectoris
CPT/HCPCS: 36415; 80048; 83880; 85025

== ENCOUNTER → 2024-06-30 | Outpatient (CLI) | payer MEDICARE, OTHER, SELFPAY ==
[2018-08-03 13:04] VITALS: BMI 19.8
[2024-06-30 12:51] LABS: Anion Gap 11 (5-15); BUN 31 mg/dL (4-19); BUN/Creat Ratio 17.4 RATIO (10-20); Calcium 9.7 mg/dL (7.6-11.0); Carbon Dioxide 25.3 mmol/L (22.0-29.0); Chloride 105 mmol/L (96-108); EST Glomerular Filtration Rate 38 (>60); Glucose 112 mg/dL (70-99); Potassium 4.8 mmol/L (3.3-5.1); Sodium Level 141 mmol/L (133-145)
== END | disposition home or self-care (01) ==
LOC: BFHLAB 10:52
PROVIDERS: PCP Family Medicine; Visit Provider Family Medicine
DX: N18.31 Chronic kidney disease, stage 3a (principal)
CPT/HCPCS: 36415; 80048

== ENCOUNTER → 2024-07-07 | Outpatient (CLI) | payer MEDICARE, OTHER, SELFPAY ==
[2018-08-03 13:04] VITALS: BMI 19.8
== END | disposition home or self-care (01) ==
LOC: SL 19:46
PROVIDERS: PCP Family Medicine; Referring Provider Nurse Practitioner Acute Care; Visit Provider Nurse Practitioner Acute Care
DX: G47.33 Obstructive sleep apnea (adult) (pediatric) (principal)
CPT/HCPCS: 95811

== ENCOUNTER → 2024-07-17 | Outpatient (CLI) | payer MEDICARE, OTHER, SELFPAY ==
[2018-08-03 13:04] VITALS: BMI 19.8
--- NOTE | 2024-07-17 11:43 | CPS ---
No aerosol rx given per pt refusing. No post spirometry.
== END | disposition home or self-care (01) ==
LOC: PSN 10:31 → SL 13:24
PROVIDERS: PCP Family Medicine; Referring Provider Nurse Practitioner Acute Care; Visit Provider Nurse Practitioner Acute Care
DX: G47.33 Obstructive sleep apnea (adult) (pediatric) (principal); R06.00 Dyspnea, unspecified
CPT/HCPCS: 94060; 94726; 94729; 95811

== ENCOUNTER → 2024-07-18 | Outpatient (CLI) | payer MEDICARE, OTHER, SELFPAY ==
[2018-08-03 13:04] VITALS: BMI 19.8
[2024-07-18 06:00] VITALS: PULSE 68; PULSE 69; PULSE 71; PULSE 72; PULSE 76; PULSE 82; PULSE 83; O2SAT 95; O2SAT 96; O2SAT 97; O2SAT 98
--- NOTE | 2024-07-18 06:43 | CPS ---
PATIENT USED A CANE FOR HIS 6MWT. ENTIRE TESTING WAS DONE ON ROOM AIR. PT TOOK 1 BRIEF REST BREAK EARLY INTO TESTING FOR DIZZINESS AND SHORTNESS OF BREATH. WALK RESUMED WITHOUT ISSUE. HE WAS COACHED ON PURSED LIP BREATHING TECHNIQUE THROUGHOUT TESTING AND ENCOURAGED TO USE AT HOME WELL.
--- NOTE | 2024-07-18 10:32 | PCM.PSN.6M ---
PSN 6 Minute Walk Test 6 Minute Walk Test 6 Minute Walk Test: 6 Minute Walk Test PSN:6-Minute Walk Test Start: 07/18/24 06:38 Freq: Status: Active Protocol: [id number] Document 07/18/24 06:00 [facility] (Rec: 07/18/24 06:47 [facility] [id number]) 6 Minute Walk Test Date Performed 07/18/24 Time Performed 06:00 Height 5 ft 9 in Weight: 230 lb Weight in Pounds 230.[address]: Marni Horn PRACTICE PHYSICIAN Assistive device Cane used: Pre-test Oxygen Delivery Room Air Method Pulse Ox (%) 97 Pulse Rate (60-100 69 beats/min) Dyspnea Segundo Scale ( 3 0-10) Exertion Segundo Scale 6 (6-20) Reported Symptoms Increased Work of Breathing 1st minute Oxygen Delivery Room Air Method Pulse Ox (%) 98 Pulse Rate (60-100 68 beats/min) Dyspnea Segundo Scale ( 4 0-10) Number of Rests 1 Taken Reported Symptoms Increased Work of Breathing,Dizziness 2nd minute Oxygen Delivery Room Air Method Pulse Ox (%) 96 Pulse Rate (60-100 71 beats/min) Dyspnea Segundo Scale ( 4 0-10) Number of Rests 0 Taken Reported Symptoms Increased Work of Breathing 3rd minute Oxygen Delivery Room Air Method Pulse Ox (%) 96 Pulse Rate (60-100 76 beats/min) Dyspnea Segundo Scale ( 4 0-10) Number of Rests 0 Taken Reported Symptoms Increased Work of Breathing 4th minute Oxygen Delivery Room Air Method Pulse Ox (%) 97 Pulse Rate (60-100 82 beats/min) Dyspnea Segundo Scale ( 4 0-10) Number of Rests 0 Taken Reported Symptoms Increased Work of Breathing 5th minute Oxygen Delivery Room Air Method Pulse Ox (%) 95 Pulse Rate (60-100 83 beats/min) Dyspnea Segundo Scale ( 5 0-10) Number of Rests 0 Taken Reported Symptoms Increased Work of Breathing 6th minute Oxygen Delivery Room Air Method Pulse Ox (%) 96 Pulse Rate (60-100 83 beats/min) Dyspnea Segundo Scale ( 5 0-10) Exertion Segundo Scale 12 (6-20) Number of Rests 0 Taken Reported Symptoms Increased Work of Breathing Post-test Oxygen Delivery Room Air Method Pulse Ox (%) 97 Pulse Rate (60-100 72 beats/min) Dyspnea Segundo Scale ( 3 0-10) Reported Symptoms Increased Work of Breathing Full Laps Walked 12 Partial Lap, Number 15 of Tiles Walked Total Distance 723 Walked (ft) 07/18/24 06:43 Cardiopulmonary Services by Manisha Ruiz PATIENT USED A CANE FOR HIS 6MWT. ENTIRE TESTING WAS DONE ON ROOM AIR. PT TOOK 1 BRIEF REST BREAK EARLY INTO TESTING FOR DIZZINESS AND SHORTNESS OF BREATH. WALK RESUMED WITHOUT ISSUE. HE WAS COACHED ON PURSED LIP BREATHING TECHNIQUE THROUGHOUT TESTING AND ENCOURAGED TO USE AT HOME WELL. Initialized on 07/18/24 06:43 - END OF NOTE Interpretation Interpretation: The patient ambulated 723 feet over the course of 6 minutes beginning on room air with use of a cane. Pretesting oxygen saturation was noted to be 97% on room air. With ambulation, the velia oxygen saturation was 95%. There was no significant exertional oxygen desaturation. Recommendations Recommendations: There is no indication for the use of supplemental oxygen at this time.
== END | disposition home or self-care (01) ==
LOC: PSN 06:24
PROVIDERS: PCP Family Medicine; Referring Provider Nurse Practitioner Acute Care; Visit Provider Nurse Practitioner Acute Care
DX: R06.00 Dyspnea, unspecified (principal)
CPT/HCPCS: 94618

== ENCOUNTER → 2024-08-03 | Outpatient (CLI) | payer MEDICARE, OTHER, SELFPAY ==
[2018-08-03 13:04] VITALS: BMI 19.8
== END | disposition home or self-care (01) ==
LOC: SL 11:42
PROVIDERS: PCP Family Medicine; Referring Provider Nurse Practitioner Acute Care; Visit Provider Nurse Practitioner Acute Care
DX: Z46.89 Encounter for fitting and adjustment of other specified devices (principal)

== ENCOUNTER → 2024-09-20 | Outpatient (CLI) | payer MEDICARE, OTHER, SELFPAY ==
[2018-08-03 13:04] VITALS: BMI 19.8
[2024-09-20 12:55] LABS: Absolute Lymphocyte Count 1.44 X10^3/uL (0.83-4.51); Absolute Neutrophil Count 6.6 X10^3/uL (2.0-7.7); Basophil# 0.03 X10^3/uL; Basophil% 0.3 % (0-1); Eosinophil# 0.14 X10^3/uL; Eosinophils% 1.5 % (0-5); Hematocrit 34.8 % (40-54); Hemoglobin 11.1 g/dL (13.0-16.5); Lymphocyte # 1.44 X10^3/ul (0.83-4.51); Lymphocyte % 15.5 % (19-41); Mean Corp Hgb Conc 31.9 g/dL (32-36); Mean Corpuscular Hgb 29.4 pg (27.0-32.0); Mean Corpuscular Volume 92.1 fL (80-94); Mean Platelet Vol. 12.6 fl (6.2-12.0); Monocyte# 1.03 X10^3/uL; Monocyte% 11.1 % (0-10); NRBC Flagged by Analyzer 0 % (0-5); Neutrophil # 6.56 X10^3/uL (2.7-7.7); Neutrophil % 70.8 % (47-70); Platelet Count 166 K/mm3 (150-450); RBC Distribution Width CV 14.1 % (11.6-14.6); Red Blood Count 3.78 M/mm3 (4.6-6.2); White Blood Count 9.3 K/mm3 (4.4-11.0)
[2024-09-20 14:13] LABS: Pro- Brain NATRIURETIC PEPTIDE 84 pg/mL (<=1800)
== END | disposition home or self-care (01) ==
LOC: LAB 11:57
PROVIDERS: PCP Family Medicine; Referring Provider Nurse Practitioner Family; Visit Provider Nurse Practitioner Family
DX: R06.02 Shortness of breath (principal)
CPT/HCPCS: 36415; 83880; 85025

== ENCOUNTER → 2024-09-22 | Outpatient (CLI) | payer MEDICARE, OTHER, SELFPAY ==
[2018-08-03 13:04] VITALS: BMI 19.8
== END | disposition home or self-care (01) ==
LOC: SL 11:56
PROVIDERS: PCP Family Medicine; Visit Provider Nurse Practitioner Acute Care
DX: Z46.89 Encounter for fitting and adjustment of other specified devices (principal)

== ENCOUNTER → 2024-09-29 | Outpatient (CLI) | payer MEDICARE, OTHER, SELFPAY ==
[2018-08-03 13:04] VITALS: BMI 19.8
[2024-09-29 15:08] LABS: Absolute Lymphocyte Count 1.35 X10^3/uL (0.83-4.51); Absolute Neutrophil Count 9.2 X10^3/uL (2.0-7.7); Basophil# 0.07 X10^3/uL; Basophil% 0.6 % (0-1); Eosinophil# 0.09 X10^3/uL; Eosinophils% 0.7 % (0-5); Hematocrit 37.4 % (40-54); Hemoglobin 12.1 g/dL (13.0-16.5); Lymphocyte # 1.35 X10^3/ul (0.83-4.51); Lymphocyte % 10.9 % (19-41); Mean Corp Hgb Conc 32.4 g/dL (32-36); Mean Corpuscular Hgb 29.6 pg (27.0-32.0); Mean Corpuscular Volume 91.4 fL (80-94); Mean Platelet Vol. 12.3 fl (6.2-12.0); Monocyte# 1.23 X10^3/uL; Monocyte% 9.9 % (0-10); NRBC Flagged by Analyzer 0 % (0-5); Neutrophil # 9.19 X10^3/uL (2.7-7.7); Neutrophil % 74.3 % (47-70); Platelet Count 169 K/mm3 (150-450); RBC Distribution Width CV 14.2 % (11.6-14.6); RBC Distribution Width SD 47.4 fl (35.1-43.9); Red Blood Count 4.09 M/mm3 (4.6-6.2); White Blood Count 12.4 K/mm3 (4.4-11.0)
[2024-09-29 16:08] LABS: Ferritin 454 ng/mL (37-417); Iron 80 ug/dL (65-175); Vitamin B12 766 pg/mL (180-914)
== END | disposition home or self-care (01) ==
LOC: MTLAB 11:16
PROVIDERS: PCP Family Medicine; Referring Provider Family Medicine; Visit Provider Family Medicine
DX: D64.9 Anemia, unspecified (principal)
CPT/HCPCS: 36415; 82607; 82728; 83540; 85025

== ENCOUNTER → 2024-10-18 | Outpatient (CLI) | payer MEDICARE, OTHER, SELFPAY ==
[2018-08-03 13:04] VITALS: BMI 19.8
[2024-10-18 14:37] LABS: Amphetamine Urine NEGATIVE (<1000 ng/mL); Barbiturate Urine NEGATIVE (< 200 ng/mL); Benzodiazepine Urine NEGATIVE (< 200 ng/mL); Buprenorphine Urine NEGATIVE (< 200 ng/mL); Cocaine Urine NEGATIVE (< 300 ng/mL); Fentanyl, Urine NEGATIVE; Methadone Urine NEGATIVE (< 300 ng/mL); Opiates Urine PRESUMPTIVE POSITIVE (< 300 ng/mL); Oxycodone, Urine NEGATIVE (< 100 ng/mL); PCP Urine NEGATIVE (< 25 ng/mL); THC Urine NEGATIVE (< 50 ng/mL)
[2024-10-18 15:29] LABS: Absolute Lymphocyte Count 1.15 X10^3/uL (0.83-4.51); Absolute Neutrophil Count 4.6 X10^3/uL (2.0-7.7); Basophil# 0.01 X10^3/uL; Basophil% 0.2 % (0-1); Eosinophil# 0.13 X10^3/uL; Hematocrit 36.4 % (40-54); Hemoglobin 11.5 g/dL (13.0-16.5); Lymphocyte # 1.15 X10^3/ul (0.83-4.51); Lymphocyte % 17.4 % (19-41); Mean Corp Hgb Conc 31.6 g/dL (32-36); Mean Corpuscular Hgb 29.4 pg (27.0-32.0); Mean Corpuscular Volume 93.1 fL (80-94); Mean Platelet Vol. 12.9 fl (6.2-12.0); Monocyte# 0.69 X10^3/uL; Monocyte% 10.4 % (0-10); NRBC Flagged by Analyzer 0 % (0-5); Neutrophil % 69.4 % (47-70); Platelet Count 152 K/mm3 (150-450); RBC Distribution Width CV 14.3 % (11.6-14.6); RBC Distribution Width SD 48.5 fl (35.1-43.9); Red Blood Count 3.91 M/mm3 (4.6-6.2); White Blood Count 6.6 K/mm3 (4.4-11.0)
[2024-10-18 16:59] LABS: Anion Gap 12 (5-15); BUN 33 mg/dL (4-19); BUN/Creat Ratio 16.4 RATIO (10-20); Carbon Dioxide 23.9 mmol/L (21.0-32.0); Chloride 103 mmol/L (98-108); EST Glomerular Filtration Rate 33 (>60); Glucose 125 mg/dL (70-99); Potassium 4.8 mmol/L (3.3-5.1); Pro- Brain NATRIURETIC PEPTIDE 200 pg/mL (<=1800); Sodium Level 139 mmol/L (133-145)
--- OUTSIDE RECORDS SUMMARY | 2024-10-18 21:50 | XMS RPT_ITS | CCD ---
Author Organization [facility]iniSy[facility] Care Team Providers Care Cardiovascular Lab Director Name Role Phone Unavailable Unavailable Unavailable Marycarmen Rodriguez DO Primary Care Provider Marycarmen Rodriguez DO Primary Care Provider [phone] MIN HOWARD Referring Unavailable MARYCARMEN RODRIGUEZ Primary Care Unavailable ELADIO INGRAM Attending Unavaila ble DAVAKIS, ELADIO ALLEN Admitting Unavaila ble JENNIFERMARYCARMEN SHETTY Primary Care Unavailable MARYCARMEN RODRIGUEZ Primary Care Unavailable DAVJAIME, ELADIO ALLEN Referring Unavaila ble DAVAKIS, ELADIO ALLEN Attending Unavaila ble JENNIFERMARYCARMEN SHETTY Primary Care Unavailable DAVAKISELADIO Admitting Unavaila ble DAVAKIS, ELADIO ALLEN Admitting Unavaila ble JENNIFERMARYCARMEN Primary Care Unavailable MARYCARMEN RODRIGUEZ Primary Care Unavailable DAVJAIME, ELADIO ALLEN Referring Unavaila ble DAVAKIS, ELADIO ALLEN Attending Unavaila ble SCHWANFERNANDA Attending Unavailable MARYCARMEN RODRIGUEZ Primary Care Unavailable SCHWFERNANDA RODRIGUEZ Referring Unavailable SCHWANFERNANDA Attending Unavailable MARYCARMEN RODRIGUEZ Primary Care Unavailable MARYCARMEN RODRIGUEZ Admitting Unavailable DAVELADIO SANDOVAL Attending Unavaila ble JENNIFERMARYCARMEN SHETTY Referring Unavailable MARYCARMEN RODRIGUEZ Primary Care Unavailable SHIRA, ELADIO ALLEN Attending Unavaila ble MARYCARMEN RODRIGUEZ Primary Care Unavailable Dr. Marycarmen Rodriguez Primary Care Provider [phone] Marycarmen Rodriguez Referring Provider Mike PEREA, MICA MACHINE OPERATOR-C Luz Elena Attending Provider Dr. Darnell Corral Attending Provider Mike MICA MACHINE OPERATOR, MICA MACHINE OPERATOR-C Luz Elena Referring Provider Mike MICA MACHINE OPERATOR, MICA MACHINE OPERATOR-C Luz Elena Other Provider Dr. John Palacios Attending Provider Mike MICA MACHINE OPERATOR, MICA MACHINE OPERATOR-C Luz Elena Referring Provider Dr. Marycarmen Rodriguez Primary Care Provider [phone] Dr. Marycarmen Rodriguez Referring Provider Mike MICA MACHINE OPERATOR, ELIAZAR-C Luz Elena Attending Provider Dr. Zen East Attending Provider Dr. Marycarmen Rodriguez Primary Care Provider [phone] Dr. Marycarmen Rodriguez Referring Provider Dr. Merritt Persaud Attending Provider PARISH Youssef Attending Provider Mike PEREA, ELIAZAR-C Luz Elena Attending Provider Dr. John Palacios Attending Provider Dr. Merritt Persaud Referring Provider Dr. Marycarmen Rodriguez Primary Care Provider Dr. Marycarmen Rodriguez Referring Provider Dr. Merritt Persaud Attending Provider Marycarmen Gutierrez Primary Care Provider Unavail Adina Phillips Attending Provider Unavailable Dr. Marycarmen Rodriguez Referring Provider Dr. Jose Hay Attending Provider Dr. Marycarmen Rodriguez Primary Care Provider [phone] Dr. Jose Hay Admit Provider Dr. Jose Hay Referring Provider Dr. Jose Hay Other Provider Dr. Alex Sanon Referring Provider Unavailable Dr. Pardeep Hall Emergency Provider [phone] Dr. Alka Leo Admit Provider [phone] Dr. Alka Leo Attending Provider Dr. Alka Leo Other Provider Dr. Shana Santos Attending Provider Dr. Shaan Santos Other Provider Dr. Aimee Cummins Attending Provider Mkie MICA MACHINE OPERATOR, MICA MACHINE OPERATOR-C Luz Elena Attending Provider Adina Vallejo Attending Provider Unavailable Dr. Jose Hay Attending Provider Dr. Marcin Araujo Attending Provider Dr. Alka Leo Referring Provider Dr. Marycarmen Rodriguez Referring Provider Dr. Marycarmen Rodriguez Primary Care Provider Adina Vallejo Attending Provider Unavailable Dr. Jose Hay Attending Provider Dr. Marycarmen Rodriguez DO Primary Care Provider Dr. Marycarmen Rodriguez DO Referring Provider Dr. Jose Hay MD Attending Provider Dr. Marycarmen Rodriguez DO Attending Provider Beto MICA MACHINE OPERATOR-C, Gustabo H Attending Provider Roof MICA MACHINE OPERATOR-C, Gustabo H Referring Provider Justina MICA MACHINE OPERATOR-CMarni Attending Provider Justina MICA MACHINE OPERATOR-CMarni Referring Provider Dr. Marycarmen Rodriguez DO Primary Care Provider Dr. Marycarmen Rodriguez DO Referring Provider Dr. Jose Hay MD Attending Provider Justina MICA MACHINE OPERATOR-CMarni Other Provider Dr. Zen East DO Attending Provider Dr. Marycarmen Rodriguez DO Primary Care Provider Dr. Marycarmen Rodriguez DO Referring Provider Dr. Marycarmen Rodriguez DO Attending Provider [phone] Jennifer CATHERINE, Dr. Dow Primary Care Provider Jennifer CATHERINE, Dr. Dow Referring Provider [phone] Brendon MICA MACHINE OPERATOR-CMaren Attending Provider Brendon MICA MACHINE OPERATOR-CMaren Referring Provider Marycarmen Rodriguez Primary Care Unavailable Jennifer, Marycarmen Referring Unavailable Beto PEREA, Gustabo Gao Attending Unavailable Jennifer, Marycarmen Referring Unavailable Mike MICA MACHINE OPERATOR, Luz Elena Attending Unavailable Jennifer, Marycarmen Primary Care Unavailable Jennifer, Marycarmen Referring Unavailable Jennifer, Marycarmen Primary Care Unavailable Jose Hay Attending Unavailable George Ríos Referring Unavailable George Ríos Attending Unavailable Jennifer, Marycarmen Primary Care Unavailable Jennifer, Marycarmen Attending Unavailable Jenniefr, Marycarmen Referring Unavailable Jennifer, Marycarmen Primary Care Unavailable Jennifer, Marycarmen Primary Care Unavailable Horn MICA MACHINE OPERATOR, Marni Referring Unavailable Horn MICA MACHINE OPERATOR, Marni Attending Unavailable Jennifer, Marycarmen Primary Care Unavailable Adina Dougherty Referring Unavail able Adina Dougherty Attending Unavail able JenniferMarycarmen Referring Unavailable Jennifer, Marycarmen Primary Care Unavailable Maren Olivas Attending Unavailable Jennifer, Marycarmen Referring Unavailable Jennifer, Marycarmen Primary Care Unavailable Jose ArmandoJose Attending Unavailable Jennifer, Marycarmen Primary Care Unavailable Jose ArmandoJose Attending Unavailable Jennifer, Marycarmen Primary Care Unavailable Justina MICA MACHINE OPERATOR, Marni Referring Unavailable Zen East Attending Unavailable Horn MICA MACHINE OPERATOR, Marni Consulting Unavailable Jennifer, Marycarmen Primary Care Unavailable Oleghe, Ifijen Attending Unavailable Oleghe, Ifijen Consulting Unavailable Oleghe, Ifijen Admitting Unavailable Gayle, Horner Consulting Unavailable Gayle, Marcin Attending Unavailable YueeletsMarycarmen mendoza Consulting Unavailable TereletsMarycarmen mendoza Attending Unavailable Jennifer, Marycarmen Primary Care Unavailable Horn MICA MACHINE OPERATOR, Marni Referring Unavailable Horn MICA MACHINE OPERATOR, Marni Attending Unavailable Jennifer, Marycarmen Primary Care Unavailable Horn MICA MACHINE OPERATOR, Marni Attending Unavailable Jennifer, Marycarmen Attending Unavailable Jennifer, Marycarmen Primary Care Unavailable Jennifer, Marycarmen Referring Unavailable JenniferMarycarmen Attending Unavailable Jennifer, Marycarmen Primary Care Unavailable Jennifer, Marycarmen Primary Care Unavailable Horn MICA MACHINE OPERATOR, Marni Attending Unavailable Horn MICA MACHINE OPERATOR, Marni Referring Unavailable Jennifer, Marycarmen Primary Care Unavailable Marycarmen Marlow Attending Unavailable Marcin Araujo Consulting Unavailable [place]w [place] Admitting Unavailable Jw [place] Consulting Unavailable JenniferMarycarmen shetty Primary Care Unavailable Maren Olivas Attending Unavailable Maren Olivas Referring Unavailable Marycarmen Rodriguez Primary Care Unavailable Justina MICA MACHINE OPERATOR, Marni Attending Unavailable Justina MICA MACHINE OPERATORMarni Referring Unavailable Marycarmen Rodriguez Primary Care Unavailable Gustabo Pérez NP Attending Unavailable Gustabo Pérez NP Referring Unavailable Marycarmen Rodriguez Primary Care Unavailable Marycarmen Rodriguez Attending Unavailable Marycarmen Rodriguez Primary Care Unavailable Marycarmen Rodriguez Referring Unavailable Justina MICA MACHINE OPERATOR, Marni Attending Unavailable Medications Current Medications Medication Drug Class(es) Dates Sig (Normalized) Sig (Original) acetaminophen 325 mg oral tablet (20 sources) Start: 01-03-2020 End: 10-12-2023 take 2 tablets by mouth every six hours as needed for pain Acetaminophen 325 MG tablet Active 650 mg PO EVERY 6 HOURS as needed for Pain -02/09October 12, 2023 12:00am Start: 01-03-2020 take 650 mg by mouth every six hours as needed Acetaminophen Active 650 MG PO EVERY 6 HOURS NEEDED January 02, 2020 11:00pm acetaminophen 325 mg / HYDROcodone bitartrate 5 mg oral tablet (9 sources) Opioid Agonist Start: 04-17-2024 Hydrocodone-Acetaminophen 5-325 mg tablet Active 1 {tbl} PO TWICE A DAY as needed April 17, 2024 1:00am [id number] actuat albuterol 0.09 mg/actuat metered dose inhaler (4 sources) beta2-Adrenergic Agonist Start: 09-20-2024 Albuterol Sulfate 90 mcg/actuation HFA aerosol inhaler Active 2 NMA INHALATION EVERY 4-6 HOURS as needed for shortness of breath or wheezing 8.5 September 20, 2024 12:00am amLODIPine 5 mg oral tablet (20 sources) Dihydropyridine Calcium Channel Kale Start: 09-24-2023 End: 06-14-2024 take 1 tablet by mouth once daily Amlodipine 5 mg tablet Active 5 mg PO DAILY 90 June 14, 2024 11:58am Start: 08-01-2021 End: 12-15-2022 take 1 tablet by mouth twice daily Amlodipine 5 mg tablet Discontinued 5 mg PO TWICE A DAY 60 March 11, 2022 4:59pm December 15, 2022 1:46pm Start: 01-09-2020 End: 08-01-2021 take 5 mg by mouth once daily Amlodipine 10 mg tablet Discontinued 5 mg PO DAILY January 09, 2020 3:04pm August 01, 2021 10:38am Start: 01-09-2020 End: 08-01-2021 take 5 mg by mouth once daily Amlodipine Discontinued 5 MG PO DAILY January 09, 2020 2:04pm August 01, 2021 9:38am Start: 07-05-2019 End: 08-12-2020 take 1 tablet by mouth once daily Amlodipine 10 mg tablet Discontinued 10 mg PO DAILY December 05, 2019 11:47am August 12, 2020 3:29pm Start: 10-28-2018 End: 07-05-2019 take 1 tablet by mouth once daily Amlodipine (Norvasc) 2.5 mg tablet Discontinued 2.5 mg PO DAILY 90 March 31, 2019 4:07pm July 05, 2019 4:46pm Start: 05-07-2016 End: 12-17-2016 take 1 tablet by mouth twice daily amLODIPine (NORVASC) 5 MG tablet Take 1 tablet (5 mg total) by mouth 2 (two) times a day. 180 tablet 3 05/07/2016 12/17/2016 Discontinued take 1 tablet by sara th twice daily amLODIPine (NORVASC) 2.5 MG tablet Take 2.5 mg by mouth 2 (two) times a day . 0 Active aspirin 81 mg delayed release oral tablet (20 sources) Platelet Aggregation Inhibitor, Nonsteroidal Anti-inflammatory Drug Start: 01-21-2017 take 1 tablet by mouth once daily Aspirin 81 MG tablet Active 81 mg PO DAILY@0800 January 21, 2017 12:00am carvedilol 6.25 mg oral tablet (18 sources) alpha-Adrenergic Kale, beta-Adrenergic Kale Start: 09-16-2023 End: 06-14-2024 take 1 tablet by mouth twice daily at mealtime Carvedilol (Coreg) 6.25 mg tablet Active 6.25 mg PO TWICE A DAY 180 June 14, 2024 11:59am must administer with a meal/food cetirizine hydrochloride 10 mg oral tablet (20 sources) Histamine-1 Receptor Antagonist Start: 09-16-2021 take 1 tablet by mouth once daily as needed Cetirizine 10 mg tablet Active 10 mg PO DAILY as needed for Allergic Reaction September 16, 2021 12:00am cholecalciferol 0.025 mg oral tablet (20 sources) Vitamin D Start: 09-16-2021 take 1 tablet by mouth once daily Cholecalciferol (Vitamin D3) 25 mcg (1,000 unit) tablet Active 25 ug PO DAILY September 16, 2021 12:00am Start: 08-02-2018 End: 08-26-2018 take 1 capsule by mouth once daily Cholecalciferol (Vitamin D3) 2,000 UNIT capsule Discontinued 2000 U PO DAILY August 02, 2018 12:00am August 26, 2018 1:43pm Start: 01-21-2017 End: 01-19-2018 take 2 capsules by mouth once daily Cholecalciferol (Vitamin D3) 2,000 UNIT capsule Discontinued 4000 U PO DAILY January 21, 2017 12:00am January 19, 2018 3:23pm Start: 01-21-2017 End: 01-19-2018 take 4000 [IU] by mouth once daily Cholecalciferol (Vitamin D3) Discontinued 4000 UNIT PO DAILY January 20, 2017 11:00pm January 19, 2018 2:23pm CYANOCOBALAMIN, VITAMIN B-12 , (VITAMIN B12 ORAL) (9 sources) CYANOCOBALAMIN, VITAMIN B-12, (VITAMIN B12 ORAL) Take by mouth. 0 Active CYANOCOBALAMIN, VITAMIN B-12, (VITAMIN B12 ORAL) Take by mouth. Active 24 hr dilTIAZem hydrochloride 240 mg extended release oral capsule (1 source) Calcium Channel Kale Start: 12-17-2016 End: 12-17-2017 take 1 capsule by mouth once daily diltiazem (CARTIA XT) 240 MG 24 hr capsule Take 1 (one) capsule (240 mg total) by mouth daily. 30 capsule 11 12/17/2016 12/17/2017 Active ERGOCALCIFEROL, VITAMIN D2, (VITAMIN D2 ORAL) (8 sources) ERGOCALCIFEROL, VITAMIN D2, (VITAMIN D2 ORAL) Take by mouth. 0 Active FLUoxetine 40 mg oral capsule (20 sources) Serotonin Reuptake Inhibitor Start: 09-16-2021 take 2 capsules by mouth once daily Fluoxetine 40 mg capsule Active 80 mg PO DAILY 180 90 September 16, 2021 10:42am Start: 09-16-2021 take 80 mg by mouth once daily Fluoxetine Active 80 MG PO DAILY 180 90 September 16, 2021 9:42am Start: 09-21-2018 End: 09-16-2021 take 1 capsule by mouth once daily Fluoxetine 40 mg capsule Discontinued 40 mg PO DAILY 90 90 September 21, 2018 12:00am September 16, 2021 10:49am take 1 capsule by mo [facility] twice daily FLUoxetine (PROZAC) 40 MG capsule Take 40 mg by mouth 2 (two) times a day . 0 Active Fluticasone Furoate (4 sources) Corticosteroid Start: 09-20-2024 take 200 ug by inhalation every twenty-four hours Fluticasone Furoate (Arnuity Ellipta) 200 mcg/actuation blister with device Active 1 NMA INHALATION Q24H September 20, 2024 12:00am gabapentin 100 mg oral capsule (18 sources) Anti-epileptic Agent Start: 03-20-2024 End: 04-17-2024 take 2 capsules by mouth twice daily as needed Gabapentin 100 mg capsule Active 200 mg PO TWICE A DAY as needed April 17, 2024 5:02pm glimepiride 4 mg oral tablet (20 sources) Sulfonylurea Start: 03-20-2024 take 1 tablet by mouth once daily Glimepiride 4 mg tablet Active 4 mg PO daily March 20, 2024 1:00am Start: 09-16-2021 End: 10-12-2023 take 1 tablet by mouth twice daily Glimepiride 4 mg tablet Discontinued 4 mg PO TWICE A DAY September 16, 2021 12:00am October 12, 2023 4:20pm Start: 08-12-2020 End: 09-16-2021 take 1 tablet by mouth twice daily Glimepiride 2 mg tablet Discontinued 2 mg PO TWICE A DAY August 12, 2020 3:31pm September 16, 2021 10:44am Start: 12-20-2019 End: 08-12-2020 take 1 tablet by mouth once daily Glimepiride 2 MG tablet Discontinued 2 mg PO DAILY December 20, 2019 12:00am August 12, 2020 3:32pm Start: 03-04-2016 End: 09-01-2018 take 1 tablet by mouth once daily Glimepiride 1 MG tablet Discontinued 1 mg PO DAILY April 12, 2018 1:00am September 01, 2018 9:30am losartan potassium 100 mg oral tablet (20 sources) Angiotensin 2 Receptor Kale Start: 10-01-2023 End: 06-14-2024 take 1 tablet by mouth once daily Losartan 100 mg tablet Active 100 mg PO DAILY June 14, 2024 11:57am Start: 09-16-2023 End: 10-01-2023 take 1 tablet by mouth twice daily Losartan (Cozaar) 25 mg tablet Discontinued 25 mg PO TWICE A DAY September 16, 2023 1:15pm October 01, 2023 2:16pm Start: 12-15-2022 End: 09-16-2023 take 1 tablet by mouth once daily Losartan (Cozaar) 25 mg tablet Discontinued 25 mg PO DAILY September 13, 2023 8:52am September 16, 2023 9:31am magnesium oxide 400 mg oral tablet (20 sources) Start: 08-01-2021 take 1 tablet by mouth once daily Magnesium Oxide 400 mg (241.3 mg magnesium) tablet Active 800 mg PO DAILY August 01, 2021 10:20am Start: 12-05-2019 End: 08-01-2021 take 1 tablet by mouth once daily Magnesium Oxide 400 mg (241.3 mg magnesium) tablet Discontinued 400 mg PO DAILY December 05, 2019 11:33am August 01, 2021 10:22am Start: 06-15-2019 End: 12-05-2019 take 1 tablet by mouth three times daily Magnesium Oxide 400 mg (241.3 mg magnesium) tablet Discontinued 400 mg PO THREE TIMES A DAY June 15, 2019 4:09pm December 05, 2019 11:33am Start: 06-04-2019 End: 06-15-2019 take 1 tablet by mouth twice daily at mealtime Magnesium Oxide 400 MG tablet Discontinued 400 mg PO TWICE DAILY WITH MEALS June 04, 2019 1:00am June 15, 2019 4:11pm Start: 04-12-2018 End: 08-26-2018 take 2 tablets by mouth once daily Magnesium Oxide 400 MG tablet Discontinued 800 mg PO DAILY April 12, 2018 1:00am August 26, 2018 1:43pm Start: 04-12-2018 End: 08-26-2018 take 800 mg by mouth once daily Magnesium Oxide Discon tinued 800 MG PO DAILY April 12, 2018 12:00am August 26, 2018 12:43pm meclizine hydrochloride 25 mg oral tablet (20 sources) Antiemetic Start: 10-29-2023 take 1 tablet by mouth once daily as needed Meclizine 25 mg tablet Active 25 mg PO DAILY as needed October 29, 2023 12:00am Start: 09-21-2022 End: 10-12-2023 take 1 tablet by mouth three times daily as needed Meclizine 25 mg Tablet Discontinued 25 mg PO 3 TIMES DAILY NEEDED as needed for vertiginous symptoms 0 September 21, 2022 12:00am October 12, 2023 4:21pm metFORMIN hydrochloride 500 mg oral tablet (20 sources) Biguanide Start: 08-19-2022 take 1 tablet by mouth twice daily Metformin 500 mg tablet Active 500 mg PO TWICE A DAY August 19, 2022 10:06am Start: 11-21-2021 End: 08-19-2022 take 1 tablet by mouth once daily Metformin 500 mg tablet Discontinued 500 mg PO DAILY November 21, 2021 12:00am August 19, 2022 10:07am mirtazapine 15 mg oral tablet (20 sources) Start: 09-21-2018 take 1 tablet by mouth at bedtime Mirtazapine (Remeron) 15 mg tablet Active 15 mg PO AT BEDTIME September 21, 2018 11:10am Start: 08-26-2018 End: 09-21-2018 take 7.5 mg by mouth once daily Mirtazapine (Remeron) 15 mg tablet Discontinued 7.5 mg PO DAILY August 26, 2018 12:00am September 21, 2018 11:12am microencapsulated potassium chloride 20 meq extended release oral tablet (20 sources) Start: 08-01-2021 End: 06-14-2024 take 3 tablets by mouth twice daily Potassium Chloride 20 mEq tablet,ER particles/crystals Active 60 meq PO TWICE A DAY 180 June 14, 2024 12:00pm Start: 08-01-2021 take 60 mEq by mouth twice daily Potassium Chloride Active 60 MEQ PO TWICE A DAY August 01, 2021 9:21am Start: 12-30-2018 End: 08-01-2021 take 2 tablets by mouth twice daily Potassium Chloride 20 mEq tablet,ER particles/crystals Discontinued 40 meq PO TWICE A DAY 360 September 02, 2020 4:54pm August 01, 2021 10:22am Start: 12-30-2018 End: 08-01-2021 take 40 mEq by mouth twice daily Potassium Chloride Discontinued 40 MEQ PO TWICE A DAY 360 September 02, 2020 3:54pm August 01, 2021 9:22am Start: 04-12-2018 End: 12-30-2018 take 1 tablet by mouth twice daily Potassium Chloride 20 mEq tablet,ER particles/crystals Discontinued 20 meq PO TWICE A DAY 180 June 09, 2018 4:39pm December 29, 2018 11:26am Start: 08-30-2017 End: 01-19-2018 take 3 tablets by mouth twice daily Potassium Chloride 20 mEq tablet extended release Discontinued 60 meq PO TWICE A DAY August 30, 2017 1:47pm January 19, 2018 3:32pm Start: 08-30-2017 End: 01-19-2018 take 60 mEq by mouth twice daily Potassium Chloride Discontinued 60 MEQ PO TWICE A DAY August 30, 2017 12:47pm January 19, 2018 2:32pm Start: 07-22-2017 End: 08-30-2017 take 1 tablet by mouth every four hours Potassium Chloride 20 mEq tablet extended release Discontinued 20 meq PO Q4H July 22, 2017 12:00am August 30, 2017 1:49pm Start: 01-21-2017 End: 07-22-2017 take 60 mEq by mouth twice daily Potassium Chloride 20 MEQ/15 ML liquid Discontinued 60 meq PO TWICE A DAY January 21, 2017 12:00am July 22, 2017 11:07am Start: 05-07-2016 End: 05-07-2017 potassium chloride SA (K-DUR,KLOR-CON) 20 MEQ tablet Take 3 (three) tablets (60 mEq total) by mouth 2 (two) times a day. 540 tablet 3 03/28/2017 Active predniSONE 20 mg oral tablet (3 sources) Start: 09-20-2024 take 2 tablets by mouth once daily, then take 1 tablet by mouth once daily Prednisone 20 mg tablet Active 20 mg PO daily September 20, 2024 12:00am Take 2 tablets daily for 4 days then 1 tablet daily for 2 days. spironolactone 50 mg oral tablet (20 sources) Aldosterone Antagonist Start: 10-12-2023 End: 06-14-2024 take 1 tablet by mouth once daily Spironolactone 50 mg tablet Active 50 mg PO DAILY June 14, 2024 12:00pm Start: 10-28-2018 End: 10-12-2023 take 1 tablet by mouth once daily Spironolactone 25 mg tablet Discontinued 25 mg PO DAILY January 06, 2023 3:43pm October 12, 2023 4:24pm Start: 01-21-2017 End: 10-28-2018 take 1 tablet by mouth once daily Spironolactone 50 mg tablet Discontinued 50 mg PO DAILY June 09, 2018 4:39pm October 28, 2018 3:28pm take 1 tablet by sara th once daily spironolactone (ALDACTONE) 50 MG tablet Take 50 mg by mouth daily. Active vitamin b12 1 mg oral capsule (20 sources) Vitamin B12 Start: 06-01-2019 take 1 capsule by mouth once daily Cyanocobalamin (Vitamin B-12) 1,000 MCG capsule Active 1000 ug PO DAILY June 01, 2019 1:00am Start: 04-12-2018 End: 08-26-2018 take 2 tablets by mouth once daily Cyanocobalamin (Vitamin B-12) 500 MCG tablet Discontinued 1000 ug PO DAILY@799April 12, 2018 1:00am August 26, 2018 1:43pm Start: 04-12-2018 End: 08-26-2018 take 1000 ug by mouth once daily Cyanocobalamin (Vitamin B-12) Discontinued 1000 MCG PO DAILY@799April 12, 2018 12:00am August 26, 2018 12:43pm Start: 08-30-2017 End: 08-30-2017 take 1 tablet by mouth once daily Cyanocobalamin (Vitamin B-12) (Vitamin B-12) 1,000 mcg tablet extended release Discontinued 1000 ug PO daily August 30, 2017 12:00am August 30, 2017 1:50pm Completed/Discontinued Medications Medication Drug Class(es) Dates Sig (Normalized) Sig (Original) amoxicillin 875 mg / clavulanate 125 mg oral tablet (20 sources) Penicillin-class Antibacterial Start: 06-10-2021 End: 08-01-2021 take 1 tablet by mouth every twelve hours Amoxicillin-Pot Clavulanate 875 MG tablet Discontinued 875 mg PO Q12H June 10, 2021 1:00am August 01, 2021 10:18am atorvastatin 40 mg oral tablet (20 sources) HMG-CoA Reductase Inhibitor Start: 08-26-2018 End: 06-14-2024 take 1 tablet by mouth at bedtime Atorvastatin 40 mg tablet Discontinued 40 mg PO AT BEDTIME November 02, 2023 2:50pm June 14, 2024 12:00pm Start: 05-14-2017 End: 08-17-2017 take 1 tablet by mouth at bedtime Atorvastatin 80 MG tablet Discontinued 80 mg PO AT BEDTIME August 12, 2017 12:00am August 17, 2017 3:58pm Start: 05-06-2016 End: 05-06-2017 take 1 tablet by mouth once atorvastatin (LIPITOR) 80 MG tablet Take 1 tablet (80 mg total) by mouth nightly. 90 tablet 3 05/06/2016 05/06/2017 Active benzonatate 100 mg oral capsule (20 sources) Non-narcotic Antitussive Start: 03-27-2022 End: 04-14-2022 take 2 capsules by mouth three times daily as needed for cough Benzonatate 100 mg capsule Discontinued 200 mg PO THREE TIMES A DAY as needed for cough March 27, 2022 1:00am April 14, 2022 11:28am Start: 03-27-2022 End: 04-14-2022 take 200 mg by mouth three times daily Benzonatate Discontinued 200 MG PO THREE TIMES A DAY March 27, 2022 12:00am April 14, 2022 10:28am ciprofloxacin 500 mg oral tablet (20 sources) Quinolone Antimicrobial Start: 05-19-2021 End: 08-01-2021 take 1 tablet by mouth twice daily Ciprofloxacin Hcl 500 MG tablet Discontinued 500 mg PO TWICE A DAY May 19, 2021 1:00am August 01, 2021 10:19am cloNIDine hydrochloride 0.1 mg oral tablet (20 sources) Central alpha-2 Adrenergic Agonist Start: 12-05-2019 End: 12-05-2019 take 1 tablet by mouth once daily Clonidine Hcl 0.1 mg tablet Discontinued 0.1 mg PO DAILY December 05, 2019 11:32am December 05, 2019 11:48am Start: 12-04-2019 End: 12-05-2019 take 1 tablet by mouth twice daily Clonidine Hcl 0.1 MG tablet Discontinued 0.1 mg PO TWICE A DAY December 04, 2019 12:00am December 05, 2019 11:33am Start: 10-20-2016 End: 07-22-2017 take 1 tablet by mouth twice daily Clonidine Hcl 0.1 MG tablet Discontinued 0.1 mg PO TWICE A DAY January 21, 2017 12:00am July 22, 2017 11:04am clopidogrel 75 mg oral tablet (20 sources) [id number] Platelet Inhibitor Start: 03-28-2017 End: 06-14-2024 take 1 tablet by mouth once daily Clopidogrel 75 mg tablet Discontinued 75 mg PO DAILY 90 June 07, 2024 3:17pm June 14, 2024 12:00pm Start: 05-07-2016 take 1 tablet by sara th once daily clopidogrel (PLAVIX) 75 mg tablet Take 1 tablet (75 mg total) by mouth daily. 90 tablet 3 05/07/2016 Active doxycycline monohydrate 100 mg oral capsule (20 sources) Tetracycline-class Drug Start: 01-20-2017 End: 07-22-2017 take 1 capsule by mouth twice daily Doxycycline Monohydrate 100 MG capsule Discontinued 100 mg PO TWICE A DAY January 20, 2017 12:00am July 22, 2017 11:04am empagliflozin 25 mg oral tablet (20 sources) Sodium-Glucose Cotransporter 2 Inhibitor Start: 10-12-2023 End: 03-20-2024 take 1 tablet by mouth once daily Empagliflozin (Jardiance) 25 mg tablet Discontinued 25 mg PO DAILY October 12, 2023 12:00am March 20, 2024 11:43am Start: 12-15-2022 End: 10-12-2023 take 1 tablet by mouth once daily Empagliflozin (Jardiance) 10 mg tablet Discontinued 10 mg PO DAILY December 15, 2022 12:00am October 12, 2023 4:20pm ergocalciferol 0.05 mg oral capsule (20 sources) Provitamin D2 Compound Start: 06-01-2019 End: 09-16-2021 Ergocalciferol (Vitamin D2) 50 MCG capsule Discontinued 50 ug PO DAILY 0 June 01, 2019 1:00am September 16, 2021 10:43am ERGOCALCIFEROL, VITAMIN D2, (VITAMIN D2 ORAL) Take by mouth. Active furosemide 40 mg oral tablet (20 sources) Loop Diuretic Start: 03-20-2024 End: 06-14-2024 take 1 tablet by mouth twice daily Furosemide 40 mg tablet Discontinued 40 mg PO TWICE A DAY 180 March 22, 2024 1:00am June 14, 2024 12:00pm Start: 06-15-2019 End: 03-20-2024 take 2 tablets by mouth once daily Furosemide 40 mg tablet Discontinued 80 mg PO DAILY 180 March 24, 2023 1:58pm March 20, 2024 3:44pm Start: 06-15-2019 End: 03-24-2023 take 80 mg by mouth once daily Furosemide Active 80 MG PO DAILY 180 March 24, 2023 12:58pm Start: 06-04-2019 End: 06-15-2019 take 1 tablet by mouth once daily Furosemide 40 mg tablet Discontinued 40 mg PO DAILY 0 June 04, 2019 10:41am June 15, 2019 4:42pm Start: 04-06-2019 End: 06-04-2019 take 2 tablets by mouth once daily Furosemide 40 mg tablet Discontinued 80 mg PO DAILY April 06, 2019 12:02pm June 04, 2019 10:41am Start: 04-06-2019 End: 06-04-2019 take 80 mg by mouth once daily Furosemide Discontinued 80 MG PO DAILY April 06, 2019 11:02am June 04, 2019 9:41am Start: 12-29-2018 End: 04-06-2019 take 1 tablet by mouth twice daily Furosemide 40 mg tablet Discontinued 40 mg PO TWICE A DAY 180 December 29, 2018 11:26am April 06, 2019 12:03pm Start: 10-28-2018 End: 12-29-2018 take 1 tablet by mouth once daily Furosemide 40 mg tablet Discontinued 40 mg PO DAILY October 28, 2018 2:29pm December 29, 2018 11:26am Start: 10-21-2018 End: 10-28-2018 Furosemide 40 mg tablet Disc ontinued 40 mg PO DAILY 90 October 21, 2018 10:05am October 28, 2018 2:32pm 40 mg BID for 5 days starting 10/21/2018, then once a day Start: 09-08-2018 End: 10-21-2018 take 1 tablet by mouth once daily Furosemide 40 mg tablet Discontinued 40 mg PO DAILY 90 September 08, 2018 12:00am October 21, 2018 10:06am Start: 12-02-2017 End: 09-08-2018 take 1 tablet by mouth once daily Furosemide 20 mg tablet Discontinued 20 mg PO DAILY June 09, 2018 4:38pm September 08, 2018 12:05pm Start: 01-21-2017 End: 12-02-2017 take 1 tablet by mouth once daily Furosemide 80 mg tablet Discontinued 80 mg PO DAILY September 03, 2017 4:55pm December 02, 2017 10:52am Start: 05-07-2016 take 1 tablet by sara th once daily furosemide (LASIX) 80 MG tablet Take 1 tablet (80 mg total) by mouth daily. 90 tablet 3 05/07/2016 Active 12 hr guaiFENesin 600 mg extended release oral tablet (20 sources) Start: 08-01-2021 End: 08-19-2022 take 1 tablet by mouth twice daily, then take 1 tablet by mouth every twelve hours Guaifenesin (Mucinex) 600 mg tablet extended release 12hr Discontinued 600 mg PO TWICE A DAY August 01, 2021 12:00am August 19, 2022 10:06am 3 ml insulin lispro 100 unt/ml pen injector (20 sources) Insulin Analog Start: 12-22-2019 End: 01-03-2020 Insulin Lispro 100 UNIT/ML insulin pen Discontinued 0 U SC BEFORE MEALS AND AT BEDTIME December 22, 2019 12:00am January 03, 2020 8:29am Please contact the information source for Protocol details. Start: 12-22-2019 End: 01-03-2020 Insulin Lispro Discontinued 0 UNIT SC BEFORE MEALS AND AT BEDTIME December 21, 2019 11:00pm January 03, 2020 7:29am 24 hr isosorbide mononitrate 60 mg extended release oral tablet (20 sources) Nitrate Vasodilator Start: 10-13-2022 End: 06-14-2024 take 1 tablet by mouth once daily, then take 1 tablet by mouth every twenty-four hours Isosorbide Mononitrate 60 mg tablet extended release 24 hr Discontinued 60 mg PO DAILY April 27, 2024 9:04am June 14, 2024 12:00pm Start: 10-01-2022 End: 10-13-2022 take 1 tablet by mouth once daily, then take 1 tablet by mouth every twenty-four hours Isosorbide Mononitrate 30 mg tablet extended release 24 hr Discontinued 30 mg PO DAILY October 01, 2022 12:00am October 13, 2022 11:31am Start: 11-21-2021 End: 09-01-2022 take 1 tablet by mouth twice daily, then take 1 tablet by mouth every twenty-four hours Isosorbide Mononitrate 30 mg tablet extended release 24 hr Discontinued 30 mg PO TWICE A DAY 180 November 21, 2021 12:00am September 01, 2022 8:37am Start: 06-01-2019 End: 06-15-2019 Isosorbide Mononitrate 60 MG tablet Discontinued 90 mg PO WITH BREAKFAST June 01, 2019 9:26pm June 15, 2019 4:11pm 90 mg PO In the morning, 60 mg in the evening; Take 90 mg in the morning (1.5 tabs), and 60 mg (1 tab) in the evening Start: 06-01-2019 End: 12-04-2019 take 1 tablet by mouth at breakfast, then take 1 tablet by mouth every twenty-four hours Isosorbide Mononitrate 60 mg tablet extended release 24 hr Discontinued 60 mg PO WITH BREAKFAST June 15, 2019 4:08pm December 04, 2019 1:50pm Start: 06-01-2019 End: 09-01-2022 take 1 tablet by mouth twice daily, then take 1 tablet by mouth every twenty-four hours Isosorbide Mononitrate 60 mg tablet extended release 24 hr Discontinued 60 mg PO TWICE A DAY 180 February 24, 2022 10:56am September 01, 2022 8:37am Start: 04-06-2019 End: 06-15-2019 Isosorbide Mononitrate 60 mg tablet extended release 24 hr Discontinued 90 mg PO .COMPLEX 0 April 06, 2019 12:16pm June 01, 2019 9:26pm 90 mg PO In the morning, 60 mg in the evening; Take 90 mg in the morning (1.5 tabs), and 60 mg (1 tab) in the evening Start: 09-08-2018 End: 04-06-2019 take 1 tablet by mouth twice daily, then take 1 tablet by mouth every twenty-four hours Isosorbide Mononitrate 60 mg tablet extended release 24 hr Discontinued 60 mg PO TWICE A DAY 180 September 08, 2018 12:05pm April 06, 2019 12:17pm Start: 08-26-2018 End: 09-08-2018 take 1 tablet by mouth once daily in the morning, then take 1 tablet by mouth every twenty-four hours Isosorbide Mononitrate 60 mg tablet extended release 24 hr Discontinued 60 mg PO EVERY MORNING August 26, 2018 1:40pm September 08, 2018 12:05pm Start: 08-03-2018 End: 08-26-2018 take 1 tablet by mouth twice daily, then take 1 tablet by mouth every twenty-four hours Isosorbide Mononitrate 60 mg tablet extended release 24 hr Discontinued 60 mg PO TWICE A DAY 180 August 03, 2018 11:41am August 26, 2018 1:40pm Start: 04-12-2018 End: 08-03-2018 take 1 tablet by mouth once daily, then take 1 tablet by mouth every twenty-four hours Isosorbide Mononitrate 60 mg tablet extended release 24 hr Discontinued 60 mg PO DAILY 90 June 09, 2018 4:38pm August 03, 2018 11:42am Start: 12-02-2017 End: 04-12-2018 take 1 tablet by mouth twice daily Isosorbide Mononitrate 60 MG tablet Discontinued 60 mg PO TWICE A DAY December 02, 2017 12:00am April 12, 2018 4:09pm Start: 05-07-2016 End: 12-02-2017 take 1 tablet by mouth once daily Isosorbide Mononitra te 120 MG tablet Discontinued 120 mg PO DAILY January 21, 2017 12:00am December 02, 2017 10:52am Magnesium (20 sources) Start: 06-04-2019 End: 06-04-2019 take 2 tablets by mouth once daily Magnesium 200 MG tablet Discontinued 400 mg PO DAILY 0 June 04, 2019 10:41am June 04, 2019 10:42am Start: 06-04-2019 End: 06-04-2019 take 400 mg by mouth once daily Magnesium Discontinued 400 MG PO DAILY 0 June 04, 2019 9:41am June 04, 2019 9:42am Start: 06-04-2019 End: 06-04-2019 take 400 mg by mouth once daily Magnesium Discontinued 400 MG PO DAILY 0 June 04, 2019 10:41am June 04, 2019 10:42am Start: 06-01-2019 End: 06-04-2019 take 1200 mg by mouth once daily Magnesium Discontinued 1200 MG PO DAILY June 02, 2019 12:51am June 04, 2019 10:41am Start: 06-01-2019 End: 06-04-2019 Magnesium 200 MG tablet Disc ontinued 1200 mg PO DAILY June 01, 2019 1:00am June 04, 2019 10:41am Start: 06-01-2019 End: 06-04-2019 take 1200 mg by mouth once daily Magnesium Discontinued 1200 MG PO DAILY June 01, 2019 12:00am June 04, 2019 9:41am Start: 06-01-2019 End: 06-04-2019 take 1200 mg by mouth once daily Magnesium Discontinued 1200 MG PO DAILY June 01, 2019 1:00am June 04, 2019 10:41am melatonin 3 mg oral tablet (15 sources) Start: 09-21-2022 End: 12-15-2022 take 1 tablet by mouth at bedtime as needed Melatonin 3 mg Tablet Discontinued 3 mg PO AT BEDTIME NEEDED as needed for Insomnia 0 September 21, 2022 12:00am December 15, 2022 1:12pm metOLazone 2.5 mg oral tablet (20 sources) Thiazide-like Diuretic Start: 03-27-2024 End: 04-17-2024 take 1 tablet by mouth every other day Metolazone 2.5 mg tablet Discontinued 2.5 mg PO every other day March 27, 2024 3:36pm April 17, 2024 5:01pm Start: 03-20-2024 End: 03-27-2024 take 1 tablet by mouth once daily Metolazone 2.5 mg tablet Discontinued 2.5 mg PO daily March 20, 2024 1:00am March 27, 2024 3:37pm Start: 04-09-2021 End: 11-21-2021 take 1 tablet by mouth every other day as needed for edema Metolazone 2.5 mg tablet Discontinued 2.5 mg PO every other day as needed for Edema September 16, 2021 10:48am November 21, 2021 10:55am metoprolol tartrate 25 mg oral tablet (20 sources) beta-Adrenergic Kale Start: 12-22-2022 End: 09-16-2023 take 1 tablet by mouth twice daily Metoprolol Tartrate 25 mg tablet Discontinued 25 mg PO TWICE A DAY December 22, 2022 2:31pm September 16, 2023 9:30am On Hold: 12/28/2022- ? bradycardia Start: 12-15-2022 End: 12-22-2022 take 1 tablet by mouth twice daily Metoprolol Tartrate 50 mg tablet Discontinued 50 mg PO TWICE A DAY 60 December 15, 2022 12:00am December 22, 2022 2:31pm Start: 08-19-2022 End: 12-15-2022 take 1 tablet by mouth twice daily Metoprolol Tartrate 25 mg tablet Discontinued 25 mg PO TWICE A DAY August 19, 2022 10:32am December 15, 2022 1:46pm Start: 09-16-2021 End: 08-19-2022 Metoprolol Tartrate 25 mg ta blet Discontinued 12.5 mg PO TWICE A DAY September 16, 2021 10:41am August 19, 2022 10:32am Start: 09-16-2021 End: 08-19-2022 take 12.5 mg by mouth twice daily Metoprolol Tartrate Discontinued 12.5 MG PO TWICE A DAY September 16, 2021 9:41am August 19, 2022 9:32am Start: 03-24-2019 End: 06-04-2019 take 1 tablet by mouth twice daily Metoprolol Tartrate 50 mg tablet Discontinued 50 mg PO TWICE A DAY 180 March 24, 2019 11:59am June 04, 2019 10:48am Start: 10-21-2018 End: 03-24-2019 Metoprolol Tartrate 100 mg t ablet Discontinued 50 mg PO TWICE A DAY 180 October 21, 2018 10:05am March 24, 2019 11:59am Start: 10-21-2018 End: 03-24-2019 take 50 mg by mouth twice daily Metoprolol Tartrate Di scontinued 50 MG PO TWICE A DAY 180 October 21, 2018 9:05am March 24, 2019 10:59am Start: 08-26-2018 End: 10-21-2018 take 1 tablet by mouth twice daily Metoprolol Tartrate 100 mg tablet Discontinued 100 mg PO TWICE A DAY 180 October 18, 2018 5:14pm October 21, 2018 10:05am Start: 12-02-2017 End: 04-12-2018 Metoprolol Tartrate 25 MG ta blet Discontinued 12.5 mg PO TWICE A DAY 60 December 02, 2017 12:00am April 12, 2018 4:41pm Start: 12-02-2017 End: 04-12-2018 take 12.5 mg by mouth twice daily Metoprolol Tartrate Discontinued 12.5 MG PO TWICE A DAY 60 December 01, 2017 11:00pm April 12, 2018 3:41pm Start: 07-22-2017 End: 12-02-2017 take 1 tablet by mouth twice daily Metoprolol Tartrate 50 mg tablet Discontinued 50 mg PO TWICE A DAY 180 August 17, 2017 4:03pm November 30, 2017 7:38pm Start: 01-21-2017 End: 09-16-2021 take 1 tablet by mouth twice daily Metoprolol Tartrate 25 mg tablet Discontinued 0 .ROUTE .COMPLEX 180 March 31, 2021 7:45am August 01, 2021 10:22am TAKE 1 TABLET BY MOUTH TWICE DAILY FOR THE HEART Start: 10-20-2016 take 1 tablet by sara th twice daily metoprolol tartrate (LOPRESSOR) 25 MG tablet Take 1 (one) tablet (25 mg total) by mouth 2 (two) times a day. 180 tablet 3 10/20/2016 Active metroNIDAZOLE 500 mg oral tablet (20 sources) Nitroimidazole Antimicrobial Start: 05-19-2021 End: 08-01-2021 take 1 tablet by mouth every six hours Metronidazole 500 MG tablet Discontinued 500 mg PO EVERY 6 HOURS 40 May 19, 2021 1:00am August 01, 2021 10:21am nitroglycerin 0.4 mg sublingual tablet (20 sources) Nitrate Vasodilator Start: 01-21-2017 End: 01-19-2018 Nitroglycerin 0.3 MG tablet, sublingual Discontinued 0.3 mg SL DIRECTED as needed for Cardiac/Chest Pain January 21, 2017 12:00am January 19, 2018 3:25pm Start: 01-21-2017 End: 01-19-2018 Nitroglycerin Discontinued 0 .3 MG SL DIRECTED January 20, 2017 11:00pm January 19, 2018 2:25pm Start: 12-23-2015 End: 06-14-2024 Nitroglycerin 0.4 mg tablet, sublingual Discontinued 0.4 mg SL every 5 to 15 minutes as needed for CHEST PAIN December 04, 2019 1:51pm February 20, 2021 10:50am Nut.Tx.Gluc Intol,Lf,Soy-Fiber (Glucerna 1.2 [place]) 0.06-1.2 gram-kcal/mL Liquid (15 sources) Start: 09-21-2022 End: 10-12-2023 take 1 mL by mouth three times daily at mealtime Nut.Tx.Gluc Intol,Lf,Soy-Fiber (Glucerna 1.2 Ashwin) 0.06-1.2 gram-kcal/mL Liquid Discontinued 120 mL PO 3 TIMES DAILY WITH MEALS 0 September 21, 2022 12:00am October 12, 2023 4:22pm Start: 09-21-2022 take 1 mL by mouth t hree times daily at mealtime Nut.Tx.Gluc Intol,Lf,Soy-Fiber (Glucerna 1.2 [place]win) 0.06-1.2 gram-kcal/mL Liquid Active 120 ML PO 3 TIMES DAILY WITH MEALS 0 September 20, 2022 11:00pm Start: 09-21-2022 take 1 mL by mouth t hree times daily at mealtime Nut.Tx.Gluc Intol,Lf,Soy-Fiber (Glucerna 1.2 [place]win) 0.06-1.2 gram-kcal/mL Liquid Active 120 ML PO 3 TIMES DAILY WITH MEALS 0 September 21, 2022 12:00am ondansetron 4 mg disintegrating oral tablet (20 sources) Serotonin-3 Receptor Antagonist Start: 09-03-2017 End: 09-07-2017 take 1 tablet by mouth every eight hours as needed for nausea Ondansetron 4 MG tablet Discontinued 4 mg PO EVERY 8 HOURS NEEDED as needed for Nausea September 03, 2017 12:00am September 07, 2017 1:17pm pantoprazole 40 mg delayed release oral tablet (20 sources) Proton Pump Inhibitor Start: 12-20-2019 End: 06-14-2024 take 1 tablet by mouth once daily Pantoprazole 40 mg tablet,delayed release (DR/EC) Discontinued 40 mg PO DAILY December 10, 2023 11:46am June 14, 2024 12:00pm Start: 01-21-2017 End: 08-26-2018 take 1 tablet by mouth twice daily Pantoprazole 40 mg tablet,delayed release (DR/EC) Discontinued 40 mg PO TWICE A DAY 180 June 09, 2018 4:39pm August 26, 2018 1:41pm Start: 08-07-2016 take 1 tablet by sara th twice daily pantoprazole (PROTONIX) 40 MG tablet Take 1 tablet by mouth two times daily 180 tablet 3 08/07/2016 Active perflutren lipid microspheres (DEFINBergey's) 0.143 mg/mL solution 0-10 mL of mixture (1 source) Start: 10-15-2020 End: 10-15-2020 perflutren lipid microspheres (DEFINITY) 0.143 mg/mL solution 0-10 mL of mixture pravastatin sodium 20 mg oral tablet (20 sources) HMG-CoA Reductase Inhibitor Start: 04-12-2018 End: 08-26-2018 take 1 tablet by mouth at bedtime Pravastatin 20 mg tablet Discontinued 20 mg PO AT BEDTIME 90 June 09, 2018 4:39pm August 26, 2018 1:38pm Start: 08-17-2017 End: 11-30-2017 take 1 tablet by mouth at bedtime Pravastatin 20 mg tablet Discontinued 20 mg PO AT BEDTIME 90 August 17, 2017 12:00am November 30, 2017 7:41pm pregabalin 50 mg oral capsule (20 sources) Start: 08-27-2017 End: 09-07-2017 take 1 capsule by mouth once daily Pregabalin 50 MG capsule Discontinued 50 mg PO DAILY 7 August 27, 2017 12:00am September 07, 2017 1:16pm 12 hr ranolazine 1000 mg extended release oral tablet (18 sources) Anti-angin al Start: 10-29-2023 End: 11-12-2023 take 1 tablet by mouth twice daily Ranolazine 1,000 mg tablet extended release 12 hr Discontinued 1000 mg PO TWICE A DAY 60 October 29, 2023 1:18pm November 12, 2023 4:10pm Start: 10-01-2023 End: 10-29-2023 take 1 tablet by mouth twice daily Ranolazine 500 mg tablet extended release 12 hr Discontinued 500 mg PO TWICE A DAY 60 October 01, 2023 12:00am October 29, 2023 1:19pm Semaglutide (9 sources) Start: 04-17-2024 End: 05-15-2024 Semaglutide (Ozempic) 0.25 mg or 0.5 mg (2 mg/3 mL) pen injector Discontinued 0.25 mg SC EVERY WEEK 1.472 April 17, 2024 1:00am May 14, 2024 1:00am May 15, 2024 1:10am for 4 weeks 24 hr venlafaxine 150 mg extended release oral capsule (20 sources) Serotonin and Norepinephrine Reuptake Inhibitor Start: 01-21-2017 End: 08-30-2017 take 1 tablet by mouth once daily Venlafaxine 150 MG tablet extended release 24 hr Discontinued 150 mg PO DAILY January 21, 2017 12:00am August 30, 2017 1:50pm Start: 03-26-2016 End: 09-21-2018 take 1 capsule by mouth once daily Venlafaxine 150 MG capsule Discontinued 150 mg PO DAILY November 30, 2017 12:00am September 21, 2018 11:12am Problems Active Problems Problem Classification Problem Date Documented Date Episodic/Chronic Cardiac dysrhythmias (20 sources) Palpitations; Translations: [Palpitations] Episodic 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 (20 sources) 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 stage 3; Translations: [Stage 3 chronic kidney disease] 12-09-2020 Chronic 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 (2 sources) 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; Translations: [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, stage 3a] Onset: 04-18-2024 Chronic obstructive pulmonary disease and bronchiectasis (20 sources) Chronic obstructive lung disease; Translations: [Chronic obstructive pulmonary disease, unspecified] 12-09-2020 Chronic Comment on above: FEV1 is 76% Conditions associated with dizziness or vertigo (20 sources) Dizziness; Translations: [Dizziness and giddiness] Episodic Congestive heart failure; nonhypertensive (20 sources) Congestive heart failure; Translations: [Heart failure, unspecified] Chronic Coronary atherosclerosis and other heart disease (20 sources) Coronary arteriosclerosis in [place] artery; Translations: [Preinfarction syndrome] Onset: 01-05-2015 10-15-2016 Chronic Comment on above: 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 Patient has had angioplasty and drug-eluting stenting with a small 2.25 mm stent several its ago. The patient had aggressive in-stent restenosis requiring a re-attempt at angioplasty but was unsuccessful Deficiency and other anemia (1 source) Anemia, unspecified; Translations: [Anemia, unspecified] Onset: 10-05-2024 Episodic Diabetes mellitus without complication (20 sources) Diabetes mellitus; Translations: [Type 2 diabetes mellitus without complications] Onset: 04-18-2024 01-05-2015 Chronic Disorders of lipid metabolism (20 sources) Hyperlipidemia; Translations: [Hyperlipidemia, unspecified] Onset: 11-01-2023 06-17-2015 Chronic Diverticulosis and diverticulitis (20 sources) Diverticulitis; Translations: [Diverticulitis of intestine, part unspecified, without perforation or abscess without bleeding] 05-27-2021 Chronic Essential hypertension (20 sources) Hypertensive disorder; Translations: [Essential (primary) hypertension] Onset: 11-01-2023 06-17-2015 Chronic Fluid and electrolyte disorders (20 sources) Lactic acidosis; Translations: [Acidosis] 11-26-2020 Episodic Immunizations and screening for infectious disease (20 sources) Contact with or exposure to other viral diseases; Translations: [Exposure to COVID-19 virus] 01-26-2021 Episodic Malaise and fatigue (20 sources) Left hemiparesis; Translations: [Weakness] Onset: 11-29-2016 11-29-2016 Episodic Melanomas of skin (20 sources) H/O Malignant melanoma; Translations: [Personal history of malignant melanoma of skin] 12-13-2018 Episodic Miscellaneous mental health disorders (20 sources) Dissociative disorder; 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] Onset: 03-17-2016 11-29-2016 Chronic Mood disorders (10 sources) Depressive disorder; Translations: [Major depressive disorder, single episode, unspecified] Onset: 03-18-2016 03-18-2016 Chronic Open wounds of head; neck; and trunk (20 sources) Scalp laceration; Translations: [Laceration without foreign body of scalp, subsequent encounter] 12-09-2020 Episodic Other connective tissue disease (20 sources) Pain in lower limb; Translations: [Pain in leg, unspecified] 02-20-2021 Episodic Other injuries and conditions due to external causes (16 sources) Open wound with complication; Translations: [Other injury of unspecified body region, initial encounter] 12-09-2020 Episodic Other injuries and conditions due to external causes (9 sources) Open wound; Translations: [Other injury of unspecified body region, initial encounter] 12-14-2022 Episodic Other lower respiratory disease (2 sources) Dyspnea; Translations: [Shortness of breath] Episodic Other lower respiratory disease (20 sources) Dyspnea on exertion; Translations: [Dyspnea, unspecified] Episodic Other lower respiratory disease (20 sources) Cough; Translations: [Cough] 01-26-2021 Episodic Other lower respiratory disease (4 sources) Dyspnea, unspecified; Translations: [Other respiratory abnormalities] Onset: 07-27-2024 Episodic Other lower respiratory disease (4 sources) Wheezing; Translations: [Wheezing] 09-20-2024 Episodic Other lower respiratory disease (1 source) Shortness of breath; Translations: [Shortness of breath] Onset: 09-27-2024 Episodic Other lower respiratory disease (1 source) Wheezing; Translations: [Wheezing] Onset: 09-20-2024 Episodic Other nutritional; endocrine; and metabolic disorders (20 sources) Obese class I; Translations: [Obesity, unspecified] 06-01-2019 Chronic Other nutritional; endocrine; and metabolic disorders (20 sources) Body mass index 30+ - obesity; Translations: [Obesity, unspecified] 06-01-2019 Chronic Other nutritional; endocrine; and metabolic disorders (20 sources) Obesity; Translations: [Obesity, unspecified] 01-31-2019 Chronic Other nutritional; endocrine; and metabolic disorders (10 sources) Obesity, unspecified; Translations: [Obesity, unspecified] Onset: 04-18-2024 Chronic Other screening for suspected conditions (not mental disorders or infectious disease) (20 sources) Pulmonary function studies abnormal; Translations: [Abnormal results of pulmonary function studies] Episodic Otitis media and related conditions (20 sources) Perforation of tympanic membrane due to otitis media; Translations: [Otitis media, unspecified, unspecified ear] 06-18-2021 Episodic Paralysis (1 source) Left hemiparesis; Translations: [Left-sided weakness] Onset: 11-29-2016 11-29-2016 Chronic Peripheral and visceral atherosclerosis (10 sources) Peripheral vascular disease; Translations: [Peripheral vascular disease, unspecified] 06-18-2015 Chronic Pulmonary heart disease (10 sources) Pulmonary hypertension; Translations: [Pulmonary hypertension, unspecified] Onset: 03-18-2016 03-18-2016 Chronic Rehabilitation care; fitting of prostheses; and adjustment of devices (1 source) Encounter for fitting and adjustment of other specified devices; Translations: [Encounter for fitting and adjustment of other specified devices] Onset: 09-28-2024 Chronic Residual codes; unclassified (20 sources) Obstructive sleep apnea syndrome; Translations: [Obstructive sleep apnea (adult) (pediatric)] Onset: 01-25-2015 01-25-2015 Chronic Comment on above: AHI 64.7 Residual codes; unclassified (6 sources) Obstructive sleep apnea (adult) (pediatric); Translations: [Obstructive sleep apnea (adult)(pediatric)] Onset: 07-26-2024 Chronic Residual codes; unclassified (19 sources) Bilateral lower limb edema; Translations: [Localized edema] 12-15-2022 Episodic Syncope (20 sources) Syncope; Translations: [Syncope and collapse] 11-26-2020 Episodic Transient cerebral ischemia (20 sources) Cerebral ischemia; Translations: [Transient cerebral ischemic attack, unspecified] 01-31-2019 Chronic Viral infection (20 sources) Disease caused by 2019-nCoV; Translations: [COVID-19] Episodic Past or Other Problems Problem Classification Problem Date Documented Da te Episodic/Chronic Coronary atherosclerosis and other heart disease (20 sources) Patient post percutaneous transluminal coronary angioplasty; Translations: [Coronary angioplasty status] Onset: 01-05-2015 01-25-2015 Episodic Comment on above: Conclusion: per Inte rvention PCI 09/01/2339% Prox, 50% mid LADAnamolous origin of small LCX from Prox RCA80% ISR Prox RCAAnamolous origin of right subclavian artery from the aortic arch, distal to the origin of the left subclavian artery (arteria lusoria). Unable to perform procedure through right radial artery. Right femoral approach used.Successful PTCA/KENDALL Prox RCA ISR using Resolute [place] 3.5x22 mm, post-dilated using 3.[address] 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 Procedure aborted. 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-RRNT-On and Stent-Mid RCA x 2 Multi Link Mini Vision Rx Stent 4.0 x 28 mm 01/21/2006 Nonspecific chest pain (20 sources) Chest pain; Translations: [Chest pain at rest] Onset: 01-25-2015 11-29-2016 Episodic Other lower respiratory disease (8 sources) Other forms of dyspnea; Translations: [Other respiratory abnormalities] Onset: 05-19-2024 Episodic Other nervous system disorders (10 sources) Numbness of upper limb; Translations: [Anesthesia of skin] Onset: 06-17-2015 06-17-2015 Episodic Other non-traumatic joint disorders (10 sources) Shoulder pain; Translations: [Pain in right shoulder] Onset: 02-19-2016 02-19-2016 Episodic Residual codes; unclassified (2 sources) H/O: anticoagulant therapy; Translations: [DVT prophylaxis] Onset: 01-25-2015 01-25-2015 Episodic Residual codes; unclassified (8 sources) Patient encounter status; Translations: [Encounter for prophylactic measures, unspecified] Onset: 01-25-2015 01-25-2015 Episodic Residual codes; unclassified (4 sources) Localized edema; Translations: [Edema] Onset: 04-18-2024 12-15-2022 Episodic Results Test Name Value Interpretation Reference Range Facility Absolute lymphocyte countOrd ered By: Marycarmen ChiuJennifer on 09-29-2024 Lymphocytes Auto (Unsp spec) [#/Vol] 1.35 10*3/uL 0.83-4.51 [facility] Absolute neutrophil countOrd ered By: Marycarmen Jennifer on 09-29-2024 Neutrophils (Bld) [#/Vol] 9.2 10*3/uL High 2.0-7.7 [facility] Automated lymphocyte count a s percentage of total leukocytesOrdered By: Marycarmen ChiuJennifer on 09-29-2024 Lymphocytes/100 WBC Auto (Unsp spec) 10.9 % Low 19-41 [facility] Basophil percentageOrdered B y: Marycarmen ChiuJennifer on 09-29-2024 Basophils/100 WBC (Bld) 0.6 % 0-1 [facility] CBC W/Diff, Automatedon 09-02 Absolute Lymph 1.35 X10 3/uL Normal 0.83-4.51 [facility] Comment on above: Performed By: #### L 500.4050, L100.0100 #### [facility] [address] [place], [address] Absolute Neut 9.2 X10 3/uL High 2.0-7.7 [facility] Comment on above: Performed By: #### L 500.4050, L100.0100 #### [facility] [address] [place], [address] Basophils/100 WBC (Bld) 0.6 % Normal 0-1 [facility] Comment on above: Performed By: #### L 500.4050, L100.0100 #### [facility] [address] [place], [address] Eosinophils/100 WBC (Bld) 0.7 % Normal 0-5 [facility] Comment on above: Performed By: #### L 500.4050, L100.0100 #### [facility] [address] [place], [address] Erythrocyte distribution width (RBC) [Ratio] 14.2 % Normal 11.6-14.6 [facility] Comment on above: Performed By: #### L 500.4050, L100.0100 #### [facility] [address] [place], [address] Hematocrit (Bld) [Volume fraction] 37.4 % Low 40-54 [facility] Comment on above: Performed By: #### L 500.4050, L100.0100 #### [facility] [address] [place], [address] Hemoglobin (Bld) [Mass/Vol] 12.1 g/dL Low 13.0-16.5 [facility] Comment on above: Performed By: #### L 500.4050, L100.0100 #### [facility] [address] [place], [address] IG% 3.600 High 0.0-0.9 [facility] Comment on above: Result Comment: IG% - Immature Granulocytes (promyelocytes, myelocytes and metamyelocytes) > 1% indicates that a LEFT SHIFT is Present. Performed By: #### L 500.4050, L100.0100 #### [facility] [address] [place], [address] Lymphocytes/100 WBC (Bld) 10.9 % Low 19-41 [facility] Comment on above: Performed By: #### L 500.4050, L100.0100 #### [facility] [address] [place], [address] MCH (RBC) [Entitic mass] 29.6 pg Normal 27.0-32.0 [facility] Comment on above: Performed By: #### L 500.4050, L100.0100 #### [facility] [address] [place], [address] MCHC (RBC) [Mass/Vol] 32.4 g/dL Normal 32-36 [facility] Comment on above: Performed By: #### L 500.4050, L100.0100 #### [facility] [address] [place], [address] MCV (RBC) [Entitic vol] 91.4 fL Normal 80-94 [facility] Comment on above: Performed By: #### L 500.4050, L100.0100 #### [facility] [address] [place], [address] Monocytes/100 WBC (Bld) 9.9 % Normal 0-10 [facility] Comment on above: Performed By: #### L 500.4050, L100.0100 #### [facility] [address] [place], [address] Neutrophils/100 WBC (Bld) 74.3 % High 47-70 [facility] Comment on above: Performed By: #### L 500.4050, L100.0100 #### [facility] [address] [place], [address] Nucleated RBC (Bld) [#/Vol] 0 10*3/uL Normal 0-5 [facility] Comment on above: Performed By: #### L 500.4050, L100.0100 #### [facility] [address] [place], [address] Platelet mean volume (Bld) [Entitic vol] 12.3 fL High 6.2-12.0 [facility] Comment on above: Performed By: #### L 500.4050, L100.0100 #### [facility] [address] [place], [address] Platelets (Bld) [#/Vol] 169 10*3/uL Normal 150-450 [facility] Comment on above: Performed By: #### L 500.4050, L100.0100 #### [facility] [address] [place], [address] RBC (Bld) [#/Vol] 4.09 10*6/uL Low 4.6-6.2 [facility] Comment on above: Performed By: #### L 500.4050, L100.0100 #### [facility] [address] [place], [address] RDW SD 47.4 fl High 35.1-43.9 [facility] Comment on above: Performed By: #### L 500.4050, L100.0100 #### [facility] [address] [place], [address] WBC (Bld) [#/Vol] 12.4 10*3/uL High 4.4-11.0 [facility] Comment on above: Performed By: #### L 500.4050, L100.0100 #### [facility] [address] [place], [address] Eosinophil percentageOrdered By: Marycarmen Rodriguez on 09-29-2024 Eosinophils/100 WBC (Bld) 0.7 % 0-5 [facility] Erythrocyte distribution wid th ratioOrdered By: Marycarmen Rodriguez on 09-29-2024 Erythrocyte distribution width (RBC) [Ratio] 14.2 % 11.6-14.6 [facility] Erythrocyte distribution wid th standard deviationOrdered By: Marycarmen Rodriguez on 09-29-2024 Erythrocyte distribution width (RBC) [Ratio] 47.4 fl High 35.1-43.9 [facility] Ferritinon 09-29-2024 Ferritin [Mass/Vol] 454 ng/mL High 37-417 [facility] Comment on above: Performed By: #### L 500.4050, L100.0100 #### [facility] [address] [place], [place], [address] Hematocrit Auto (Bld) [Volum e fraction]Ordered By: Marycarmen Rodriguez on 09-29-2024 Hematocrit (Bld) [Volume fraction] 37.4 % Low 40-54 [facility] Hemoglobin measurementOrdere d By: Marycarmen Rodriguez on 09-29-2024 Hemoglobin (Bld) [Mass/Vol] 12.1 g/dL Low 13.0-16.5 [facility] Immature granulocytes/100 WB C Auto (Bld)Ordered By: Marycarmen Rodriguez on 09-29-2024 Immature granulocytes/100 WBC (Bld) 3.600 % High 0.0-0.9 [facility] Comment on above: IG% - Immature Granu locytes (promyelocytes, myelocytes and metamyelocytes) > 1% indicates that a LEFT SHIFT is Present. Ironon 09-29-2024 Iron [Mass/Vol] 80 ug/dL Normal 65-175 [facility] Comment on above: Performed By: #### L 500.4050, L100.0100 #### [facility] [address] [place], [place], [address] Iron measurement (mass/mass) Ordered By: Marycarmen Rodriguez on 09-29-2024 Iron (Unsp spec) [Mass/Mass] 80 ug/dL 65-175 [facility] MCV (mean corpuscular volume ) determinationOrdered By: Marycarmen Rodriguez on 09-29-2024 MCV (RBC) [Entitic vol] 91.4 fL 80-94 [facility] Mean corpuscular hemoglobin (MCH) determinationOrdered By: Marycarmen Rodriguez on 09-29-2024 MCH (RBC) [Entitic mass] 29.6 pg 27.0-32.0 [facility] Mean corpuscular hemoglobin concentration (MCHC) determinationOrdered By: Marycarmen Rodriguez on 09-29-2024 MCHC (RBC) [Mass/Vol] 32.4 g/dL 32-36 [facility] Mean platelet volume determi nationOrdered By: Marycarmen Rodriguez on 09-29-2024 Platelet mean volume (Bld) [Entitic vol] 12.3 fL High 6.2-12.0 [facility] Monocyte percentageOrdered B y: Marycarmen Rodriguez on 09-29-2024 Monocytes/100 WBC (Bld) 9.9 % 0-10 [facility] Neutrophil percentageOrdered By: Marycarmen Rodriguez on 09-29-2024 Neutrophils/100 WBC (Bld) 74.3 % High 47-70 [facility] Nucleated red blood cell per centageOrdered By: Marycarmen Rodriguez on 09-29-2024 Nucleated RBC/100 WBC (Bld) [Ratio] 0 % 0-5 [facility] Platelet countOrdered By: Ap Rodriguez on 09-29-2024 Platelets (Bld) [#/Vol] 169 10*3/uL 150-450 [facility] RBC Auto (Bld) [#/Vol]Ordere d By: Marycarmen Rodriguez on 09-29-2024 RBC (Bld) [#/Vol] 4.09 10*6/uL Low 4.6-6.2 [facility] Serum or plasma ferritin ritu surement (mass/volume)Ordered By: Marycarmen Rodriguez on 09-29-2024 Ferritin [Mass/Vol] 454 ng/mL High 37-417 [facility] Vitamin B12on 09-29-2024 Cobalamin (Vitamin B12) [Mass/Vol] 766 pg/mL Normal 180-914 [facility] Comment on above: Performed By: #### L 500.4050, L100.0100 #### [facility] [place], [address] Vitamin B12 ser/plasOrdered By: Marycarmen Rodriguez on 09-29-2024 Cobalamin (Vitamin B12) [Mass/Vol] 766 pg/mL 180-914 [facility] White blood cell (WBC) count Ordered By: Marycarmen Rodriguez on 09-29-2024 WBC (Bld) [#/Vol] 12.4 10*3/uL High 4.4-11.0 [facility] Absolute lymphocyte countOrd ered By: ELIAZAR Olivas on 09-20-2024 Lymphocytes Auto (Unsp spec) [#/Vol] 1.44 10*3/uL 0.83-4.51 [facility] Absolute neutrophil countOrd ered By: ELIAZAR Olivas on 09-20-2024 Neutrophils (Bld) [#/Vol] 6.6 10*3/uL 2.0-7.7 [facility] Automated lymphocyte count a s percentage of total leukocytesOrdered By: ELIAZAR Olivas on 09-20-2024 Lymphocytes/100 WBC Auto (Unsp spec) 15.5 % Low 19-41 [facility] Basophil percentageOrdered B y: ELIAZAR Olivas on 09-20-2024 Basophils/100 WBC (Bld) 0.3 % 0-1 [facility] CBC W/Diff, Automatedon 09-01 Absolute Lymph 1.44 X10 3/uL Normal 0.83-4.51 [facility] Comment on above: Performed By: #### L 100.0100, L503.7505 #### [facility] [address] [facility] [address] [place], [address] Absolute Neut 6.6 X10 3/uL Normal 2.0-7.7 [facility] Comment on above: Performed By: #### L 100.0100, L503.7505 #### [facility] [address] [place], [address] Basophils/100 WBC (Bld) 0.3 % Normal 0-1 [facility] Comment on above: Performed By: #### L 100.0100, L503.7505 #### [facility] [address] [place], [address] Eosinophils/100 WBC (Bld) 1.5 % Normal 0-5 [facility] Comment on above: Performed By: #### L 100.0100, L503.7505 #### [facility] [address] [place], [address] Erythrocyte distribution width (RBC) [Ratio] 14.1 % Normal 11.6-14.6 [facility] Comment on above: Performed By: #### L 100.0100, L503.7505 #### [facility] [address] [place], [address] Hematocrit (Bld) [Volume fraction] 34.8 % Low 40-54 [facility] Comment on above: Performed By: #### L 100.0100, L503.7505 #### [facility] [address] [place], [address] Hemoglobin (Bld) [Mass/Vol] 11.1 g/dL Low 13.0-16.5 [facility] Comment on above: Performed By: #### L 100.0100, L503.7505 #### [facility] [address] [place], [address] IG% 0.800 Normal 0.0-0.9 [facility] Comment on above: Result Comment: IG% - Immature Granulocytes (promyelocytes, myelocytes and metamyelocytes) > 1% indicates that a LEFT SHIFT is Present. Performed By: #### L 100.0100, L503.7505 #### [facility] [address] [place], [address] Lymphocytes/100 WBC (Bld) 15.5 % Low 19-41 [facility] Comment on above: Performed By: #### L 100.0100, L503.7505 #### [facility] [address] [place], [address] MCH (RBC) [Entitic mass] 29.4 pg Normal 27.0-32.0 [facility] Comment on above: Performed By: #### L 100.0100, L503.7505 #### [facility] [address] [place], [address] MCHC (RBC) [Mass/Vol] 31.9 g/dL Low 32-36 [facility] Comment on above: Performed By: #### L 100.0100, L503.7505 #### [facility] [address] [place], [address] MCV (RBC) [Entitic vol] 92.1 fL Normal 80-94 [facility] Comment on above: Performed By: #### L 100.0100, L503.7505 #### [facility] [address] [place], [address] Monocytes/100 WBC (Bld) 11.1 % High 0-10 [facility] Comment on above: Performed By: #### L 100.0100, L503.7505 #### [facility] [address] [place], [address] Neutrophils/100 WBC (Bld) 70.8 % High 47-70 [facility] Comment on above: Performed By: #### L 100.0100, L503.7505 #### [facility] [address] [place], [address] Nucleated RBC (Bld) [#/Vol] 0 10*3/uL Normal 0-5 [facility] Comment on above: Performed By: #### L 100.0100, L503.7505 #### [facility] [address] [place], [address] Platelet mean volume (Bld) [Entitic vol] 12.6 fL High 6.2-12.0 [facility] Comment on above: Performed By: #### L 100.0100, L503.7505 #### [facility] [address] [place], [address] Platelets (Bld) [#/Vol] 166 10*3/uL Normal 150-450 [facility] Comment on above: Performed By: #### L 100.0100, L503.7505 #### [facility] [address] [place], [address] RBC (Bld) [#/Vol] 3.78 10*6/uL Low 4.6-6.2 [facility] Comment on above: Performed By: #### L 100.0100, L503.7505 #### [facility] [address] [place], [address] RDW SD 48.0 fl High 35.1-43.9 [facility] Comment on above: Performed By: #### L 100.0100, L503.7505 #### [facility] [address] [place], [address] WBC (Bld) [#/Vol] 9.3 10*3/uL Normal 4.4-11.0 [facility] Comment on above: Performed By: #### L 100.0100, L503.7505 #### [facility] [address] [place], [address] Eosinophil percentageOrdered By: ELIAZAR Olivas on 09-20-2024 Eosinophils/100 WBC (Bld) 1.5 % 0-5 [facility] Erythrocyte distribution wid th ratioOrdered By: ELIAZAR Olivas on 09-20-2024 Erythrocyte distribution width (RBC) [Ratio] 14.1 % 11.6-14.6 [facility] Erythrocyte distribution wid th standard deviationOrdered By: ELIAZAR Olivas on 09-20-2024 Erythrocyte distribution width (RBC) [Ratio] 48.0 fl High 35.1-43.9 [facility] Hematocrit Auto (Bld) [Volum e fraction]Ordered By: ELIAZAR Olivas on 09-20-2024 Hematocrit (Bld) [Volume fraction] 34.8 % Low 40-54 [facility] Hemoglobin measurementOrdere d By: ELIAZAR Olivas on 09-20-2024 Hemoglobin (Bld) [Mass/Vol] 11.1 g/dL Low 13.0-16.5 [facility] Immature granulocytes/100 WB C Auto (Bld)Ordered By: ELIAZAR Olivas on 09-20-2024 Immature granulocytes/100 WBC (Bld) 0.800 % 0.0-0.9 [facility] Comment on above: IG% - Immature Granu locytes (promyelocytes, myelocytes and metamyelocytes) > 1% indicates that a LEFT SHIFT is Present. L503.7505on 09-20-2024 Natriuretic peptide B (Bld) [Mass/Vol] 84 pg/mL Normal <=1800 [facility] Comment on above: Result Comment: Hear t Failure Unlikely: < 300 pg/mL Heart Failure Likely < 50 Years: > 450 pg/mL 50-75 Years: > 900 pg/mL >75 Years: > 1800 pg/mL Performed By: #### L 100.0100, L503.7505 #### [facility] [place], [address] MCV (mean corpuscular volume ) determinationOrdered By: ELIAZAR Olivas on 09-20-2024 MCV (RBC) [Entitic vol] 92.1 fL 80-94 [facility] Mean corpuscular hemoglobin (MCH) determinationOrdered By: ELIAZAR Olivas on 09-20-2024 MCH (RBC) [Entitic mass] 29.4 pg 27.0-32.0 [facility] Mean corpuscular hemoglobin concentration (MCHC) determinationOrdered By: ELIAZAR Olivas on 09-20-2024 MCHC (RBC) [Mass/Vol] 31.9 g/dL Low 32-36 [facility] Mean platelet volume determi nationOrdered By: ELIAZAR Olivas on 09-20-2024 Platelet mean volume (Bld) [Entitic vol] 12.6 fL High 6.2-12.0 [facility] Monocyte percentageOrdered B y: ELIAZAR Olivas on 09-20-2024 Monocytes/100 WBC (Bld) 11.1 % High 0-10 [facility] Natriuretic peptide.B prohor efrem N-Terminal [Mass/volume] in Serum or PlasmaOrdered By: ELIAZAR Olivas on 09-20-2024 Natriuretic peptide.B prohormone N-Terminal [Mass/Vol] 84 pg/mL <1800 [facility] Comment on above: Heart Failure Unlike ly: < 300 pg/mLHeart Failure Likely< 50 Years: > 450 pg/mL50-75 Years: > 900 pg/mL>75 Years: > 1800 pg/mL Neutrophil percentageOrdered By: ELIAZAR Olivas on 09-20-2024 Neutrophils/100 WBC (Bld) 70.8 % High 47-70 [facility] Nucleated red blood cell per centageOrdered By: ELIAZAR Olivas on 09-20-2024 Nucleated RBC/100 WBC (Bld) [Ratio] 0 % 0-5 [facility] Platelet countOrdered By: ELIAZAR Olivas on 09-20-2024 Platelets (Bld) [#/Vol] 166 10*3/uL 150-450 [facility] Pulmonary Visit Reporton Pulmonary Visit Report [facility] [place] 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 The recommendation was to trial BiPAP therapy. I suspect that the patient is suboptimally controlled as seen with elevated AHI on compliance download due to mask leak. I have asked him to use a FFM that he has available at home and I plan to reassess compliance on follow up in 4 weeks. The patient should remain on current settings of Bipap 15/11cm. I have educated him on the findings of mixed apnea on recent titration study. He understands that he may need another sleep study for ASV if apnea remains suboptimally controlled. (2) COPD (chronic obstructive pulmonary disease): Status: Chronic Qualifiers: COPD type: unspecified COPD Qualified Code(s): J44.9 - Chronic obstructive pulmonary disease, unspecified Comment: FEV1 is 76% Plan: The patient quit smoking 30 years ago, his shortness of breath could be related to a pulmonary etiology and today I am suspecting asthma due to elevated NIOX and the other respiratory symptoms he is experiencing. I would like to prescribe prednisone but am concerned that it may worsen his cardiac disease which could also be contributing to his shortness of breath. Therefore I plan to obtain a stat BNP and if it is not elevated, I will proceed with oral prednisone. The patient could also be experiencing a pulmonary vascular etiology which remains in the differential. The degree of symptoms described do not correlate to the degree of disease seen on the PFT. The PFT is consistent with the previous study. Unfortunately the PFT does not provide me with complete information as there was no quantification of response to albuterol. For this reason I have prescribed albuterol HFA to be used 2 inhalations up to 4 times daily as needed for shortness of breath. This is a trial and I have asked the patient to utilize it before he exerts himself. I have also recommended that he begin Arnuity 200, 1 inhalation daily. I believe that a higher ICS dose would be beneficial, considering an elevated NIOX today. The patient will hold the inhaler that he was given by his PCP for this time and he may be able to return to that inhaler once there has been control of the inflammation that has been identified in the airways. I have discussed correct inhaler techniques with the patient today. I recommended a CBC to evaluate for anemia which may correct the mildly reduced gas transfer seen on the PFT. The patient does not require supplemental oxygen at this time. (3) Obesity: Status: Chronic Qualifiers: Body mass index: BMI 36.0-36.9 Obesity classification: adult class 2 (BMI 35 - 39.9) Obesity type: due to excess calories Serious obesity comorbidity presence: with serious comorbidity Qualified Code(s): E66.812 - Obesity, class 2; E66.01 - Morbid (severe) obesity due to excess calories; Z68.36 - Body mass index [BMI] 36.0-36.9, adult Plan: Complicates exam, plan, care and prognosis. This could be contributing to his shortness of breath. Prudent dieting and daily exercise is warranted for weight loss. (4) Diastolic heart failure: Status: Chronic Qualifiers: Heart failure chronicity: chronic Qualified Code(s): I50.32 - Chronic diastolic (congestive) heart failure Plan: Echocardiogram from October 2023 indicated stage I diastolic dysfunction. RVSP not estimated. The patient is agreeable to undergo testing so that we may optimize his care to hopefully reduce his diastolic heart failure. We will attempt to optimize the management of the mixed apnea that has been identified by adjusting the style of his face mask. The patient may benefit from a nocturnal oximetry in the future, this will be further discussed on follow-up. Orders: Orders NIOX Today R06.2 - Wheezing CBC W/Diff, Automated Today R06.02 - Shortness of breath Pro- Brain NATRIURETIC PEPTIDE Today R06.02 - Shortness of breath Medications: New albuterol sulfate 90 mcg/actuation 2 inhalations inhalation Q4-6H PRN 8.5 grams 3RF shortness of breath or wheezing fluticasone furoate 200 mcg/actuation (Arnuity Ellipta) 1 inh inhalation Q24H 30 ea 3RF Plan Details Follow Up: 4 Weeks (LMR) HPI HPI Comments Details: This patient presents to the office today to follow-up for obstructive sleep apnea and COPD, to review recent testing. He is ambulatory with the use of a cane. Previous pulmonary function test indicated mild COPD. He does have a distant smoking history, quitting comp (more content not included)... 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 MICA MACHINE OPERATOR-C Status: REG CLI Location: PSN Date: Sex: M C PSN 6 Minute Walk Test 6 Minute Walk Test 6 Minute Walk Test: 6 Minute Walk Test PSN:6-Minute Walk Test Start: 07/18/24 06:38 Freq: Status: Active Protocol: RESP.6MINW Document 07/18/24 06:00 [facility] (Rec: 07/18/24 06:47 [facility] [id number]) 6 Minute Walk Test Date Performed 07/18/24 Time Performed 06:00 Height 5 ft 9 in Weight: 230 lb Weight in Pounds 230.[address]: Marni Horn NP Assistive device Cane used: Pre-test Oxygen Delivery Room Air Method Pulse Ox (%) 97 Pulse Rate (60-100 69 beats/min) Dyspnea Segundo Scale ( 3 0-10) Exertion Segundo Scale 6 (6-20) Reported Symptoms Increased Work of Breathing 1st minute Oxygen Delivery Room Air Method Pulse Ox (%) 98 Pulse Rate (60-100 68 beats/min) Dyspnea Segundo Scale ( 4 0-10) Number of Rests 1 Taken Reported Symptoms Increased Work of Breathing,Dizziness 2nd minute Oxygen Delivery Room Air Method Pulse Ox (%) 96 Pulse Rate (60-100 71 beats/min) Dyspnea Segundo Scale ( 4 0-10) Number of Rests 0 Taken Reported Symptoms Increased Work of Breathing 3rd minute Oxygen Delivery Room Air Method Pulse Ox (%) 96 Pulse Rate (60-100 76 beats/min) Dyspnea Segundo Scale ( 4 0-10) Number of Rests 0 Taken Reported Symptoms Increased Work of Breathing 4th minute Oxygen Delivery Room Air Method Pulse Ox (%) 97 Pulse Rate (60-100 82 beats/min) Dyspnea Segundo Scale ( 4 0-10) Number of Rests 0 Taken Reported Symptoms Increased Work of Breathing 5th minute Oxygen Delivery Room Air Method Pulse Ox (%) 95 Pulse Rate (60-100 83 beats/min) Dyspnea Segundo Scale ( 5 0-10) Number of Rests 0 Taken Reported Symptoms Increased Work of Breathing 6th minute Oxygen Delivery Room Air Method Pulse Ox (%) 96 Pulse Rate (60-100 83 beats/min) Dyspnea Segundo Scale ( 5 0-10) Exertion Segundo Scale 12 (6-20) Number of Rests 0 Taken Reported Symptoms Increased Work of Breathing Post-test Oxygen Delivery Room Air Method Pulse Ox (%) 97 Pulse Rate (60-100 72 beats/min) Dyspnea Segundo Scale ( 3 0-10) Reported Symptoms Increased Work of Breathing Full Laps Walked 12 Partial Lap, Number 15 of Tiles Walked Total Distance 723 Walked (ft) 07/18/24 06:43 Cardiopulmonary Services by Manisha Ruiz PATIENT USED A CANE FOR HIS 6MWT. ENTIRE TESTING WAS DONE ON ROOM AIR. PT TOOK 1 BRIEF REST BREAK EARLY INTO TESTING FOR DIZZINESS AND SHORTNESS OF BREATH. WALK RESUMED WITHOUT ISSUE. HE WAS COACHED ON PURSED LIP BREATHING TECHNIQUE THROUGHOUT TESTING AND ENCOURAGED TO USE AT HOME WELL. Initialized on 07/18/24 06:43 - END OF NOTE Interpretation Interpretation: The patient ambulated 723 feet over the course of 6 minutes beginning on room air with use of a cane. Pretesting oxygen saturation was noted to be 97% on room air. With ambulation, the velia oxygen saturation was 95%. There was no significant exertional oxygen desaturation. Recommendations Recommendations: There is no indication for the use of supplemental oxygen at this time. 07/18/24 1032 Date Zen East DO CC: Date Dictated: 07/18/24 1032 Date Transcribed: 07/18/24 103 Lumber Sticker: Dr. Zen East DO Signed Normal [facility] Pulmonary Visit Reporton Pulmonary Visit Report [facility] of [address] [place] [address] OFFICE VISIT Date of Service: 07/03/24 MR#: [id number] Acct: [id number] Name: ERIBERTO RICO Rep #: [id number] : 1945 Provider: YRN Horn Age/Sex: 78/M [place] [facility] [place] Status: Signed Assessment and Plan Assessment and Plan (1) Obstructive sleep apnea: Status: Chronic Comment: AHI 64.7 Plan: Deteriorated. The patient admits that he is having persistent daytime hypersomnia despite wearing his PAP machine 10 hours each night. It has been 13 years since his last titration study. He has put on 42 pounds since the last sleep study. It is quite likely that the patient requires at least an increase in pressure support, but may also benefit from bilevel therapy. He is agreeable to a titration study. He will return to the office in 3 months to evaluate his response to new settings. (2) COPD (chronic obstructive pulmonary disease): Status: Chronic Qualifiers: COPD type: unspecified COPD Qualified Code(s): J44.9 - Chronic obstructive pulmonary disease, unspecified Plan: The patient quit smoking 30 years ago, his shortness of breath could be related to a pulmonary etiology but more likely is related to a pulmonary vascular etiology. For clarification and quantification purposes the patient will participate in a pulmonary function test and a walking oximetry. I did educate the patient that if hypoxia is discovered during the 6-minute walk test, that supplemental oxygen will be ordered to be worn with any ambulation. He is hesitant but agreeable. Follow-up in the office in 3 months to discuss test results. He has been encouraged to contact the office with any new or worsening symptoms in the meantime. (3) Obesity: Status: Chronic Qualifiers: Body mass index: BMI 36.0-36.9 Obesity classification: adult class 2 (BMI 35 - 39.9) Obesity type: due to excess calories Serious obesity comorbidity presence: with serious comorbidity Qualified Code(s): E66.812 - Obesity, class 2; E66.01 - Morbid (severe) obesity due to excess calories; Z68.36 - Body mass index [BMI] 36.0-36.9, adult Plan: Complicates exam, plan, care and prognosis. Encouraged weight loss. (4) Diastolic heart failure: Status: Chronic Qualifiers: Heart failure chronicity: chronic Qualified Code(s): I50.32 - Chronic diastolic (congestive) heart failure Plan: Echocardiogram from October 2023 indicated stage I diastolic dysfunction. RVSP not estimated. The patient is agreeable to undergo testing so that we may optimize his care to hopefully reduce his diastolic heart failure. We will attempt to optimize the management of his obstructive sleep apnea. He will perform a pulmonary function test to evaluate for obstructive versus restrictive ventilatory impairment and subsequent treatment. He is also going to have a 6-minute walk test to evaluate for exertional hypoxia, and treatment will be ordered if indicated. Orders: Orders PFT Complete - DLCO, Spirometry b/a bronchodilators, lung volumes 07/17/24 R06.00 - Dyspnea, unspecified Simple Pulmonary Exercise Test 07/25/24 R06.00 - Dyspnea, unspecified Polysomnography with PAP Today G47.33 - Obstructive sleep apnea (adult) (pediatric) Plan Details Follow Up: 3 Months (CSM or LMR) HPI F/U per [facility] Chief Complaint: shortness of breath HPI Comments Details: This patient presents to the office today to reestablish care for the management of his obstructive sleep apnea and COPD. He is ambulatory with the use of a cane. If you recall, he was last seen here in the office in April 2022. At that time a pulmonary function test was ordered. He had had a NIOX performed in the office that day that had returned within normal limits. Previous pulmonary function test indicated mild COPD. He is not currently on any inhalers. He does have a distant smoking history, quitting completely 30 years ago. He does have shortness of breath that is worse with exertion. He is easily exerted. He states that he becomes short of breath with doing activities of daily living, such as taking a shower. He has a daily moist sounding cough. Occasionally he is able to cough up a small amount of clear-colored sputum. He reports occasional wheezing. He does admit to sinus congestion and postnasal drip, seasonal he utilizes Zyrtec with some relief. He has occasional chest pain, chest tightness but denies any palpitations. He has not had any fever, chills or body aches. He reports that he sleeps with his PAP device every night. He sleeps 10 hours at night, does not take any naps. He denies nodding off to sleep unintentionally. Unfortunately, he is experiencing daytime fatigue. He reports occasional dry mouth. He is not having difficulty with morning headaches. He is not having excessive nocturia. Compli (more content not included)... Normal [facility] BUN/creatinine ratioOrdered By: Marycarmen Rodriguez on 06-30-2024 Urea nitrogen/Creatinine [Mass ratio] 17.4 mg/mg 10-20 [facility] Basic Metabolic Profile (BMP )on 06-30-2024 Anion gap [Moles/Vol] 11 mmol/L Normal 5-15 [facility] Comment on above: Performed By: #### L [id number] #### [facility] [address] [place], [address] BUN/CRE 17.4 RATIO Normal 10-20 [facility] Comment on above: Performed By: #### L [id number] #### [facility] [address] [place], [address] Calcium [Mass/Vol] 9.7 mg/dL Normal 7.6-11.0 [facility] Comment on above: Performed By: #### L [id number] #### [facility] [address] [place], [address] Chloride [Moles/Vol] 105 mmol/L Normal 96-108 [facility] Comment on above: Performed By: #### L [id number] #### [facility] [address] [place], [address] CO2 [Moles/Vol] 25.3 mmol/L Normal 22.0-29.0 [facility] Comment on above: Performed By: #### L [id number] #### [facility] [address] [place], [address] Creatinine [Mass/Vol] 1.80 mg/dL High 0.70-1.20 [facility] Comment on above: Performed By: #### L [id number] #### [facility] [address] [place], [address] GFR/1.73 sq M.predicted among non-blacks MDRD (S/P/Bld) [Vol rate/Area] 38 mL/min/{1.73_m2} Low >60 [facility] Comment on above: Result Comment: mL/m in/1.73m2 CKD-EPI Creatinine Equation (2020) Performed By: #### L [id number] #### [facility] [address] [place], [address] Glucose [Mass/Vol] 112 mg/dL High 70-99 [facility] Comment on above: Performed By: #### L [id number] #### [facility] [address] [place], [address] Potassium [Moles/Vol] 4.8 mmol/L Normal 3.3-5.1 [facility] Comment on above: Performed By: #### L [id number] #### [facility] [address] [place], [address] Sodium [Moles/Vol] 141 mmol/L Normal 133-145 [facility] Comment on above: Performed By: #### L [id number] #### [facility] [address] [place], [address] Urea nitrogen [Mass/Vol] 31 mg/dL High 4-19 [facility] Comment on above: Performed By: #### L [id number] #### [facility] [address] [place], [address] Carbon dioxide measurementOr dered By: Marycarmen Rodriguez on 06-30-2024 CO2 [Moles/Vol] 25.3 mmol/L 22.0-29.0 [facility] Chloride measurementOrdered By: Marycarmen Rodriguez on 06-30-2024 Chloride [Moles/Vol] 105 mmol/L 96-108 [facility] GFR/1.73 sq M.predicted ana lilia g non-blacks MDRD (S/P/Bld) [Vol rate/Area]Ordered By: Marycarmen Rodriguez on 06-30-2024 Estimated GFR (MDRD) Non-Af Amer 38 Low >60 [facility] Comment on above: mL/min/1.73m2 CKD-EP I Creatinine Equation (2020) Glomerular filtration rate ( GFR) estimation/1.73 sq m using serum, plasma, or whole bOrdered By: Marycarmen Rodriguez on 06-30-2024 GFR/1.73 sq M.predicted among non-blacks MDRD (S/P/Bld) [Vol rate/Area] 38 mL/min/{1.73_m2} Low >60 [facility] Comment on above: mL/min/1.73m2 CKD-EP I Creatinine Equation (2020) Serum creatinine measurement (mass/volume)Ordered By: Marycarmen Rodriguez on 06-30-2024 Creatinine [Mass/Vol] 1.80 mg/dL High 0.70-1.20 [facility] Serum glucose measurement (m ass/volume)Ordered By: Marycarmen Rodriguez on 06-30-2024 Glucose [Mass/Vol] 112 mg/dL High 70-99 [facility] Serum or plasma anion gap de termination (moles/volume)Ordered By: Marycarmen Rodriguez on 06-30-2024 Anion gap [Moles/Vol] 11 mmol/L 5-15 [facility] Serum or plasma calcium francine urement (mass/volume)Ordered By: Marycarmen Rodriguez on 06-30-2024 Calcium [Mass/Vol] 9.7 mg/dL 7.6-11.0 [facility] Serum or plasma potassium me asurementOrdered By: Marycarmen Rodriguez on 06-30-2024 Potassium [Moles/Vol] 4.8 mmol/L 3.3-5.1 [facility] Serum or plasma sodium measu rement (moles/volume)Ordered By: Marycarmen Rodriguez on 06-30-2024 Sodium [Moles/Vol] 141 mmol/L 133-145 [facility] Serum or plasma urea nitroge n measurement (mass/volume)Ordered By: Marycarmen Rodriguez on 06-30-2024 Urea nitrogen [Mass/Vol] 31 mg/dL High 4-19 [facility] Absolute neutrophil countOrd ered By: Gustabo Pérez on 04-17-2024 Neutrophils (Bld) [#/Vol] 6.0 10*3/uL 2.0-7.7 [facility] BNP (brain natriuretic pepti de measurement)Ordered By: Gustabo Pérez on 04-17-2024 Natriuretic peptide B (Bld) [Mass/Vol] 37.2 pg/mL 0-100 [facility] BNP,B-Type NATRIURETIC PEPTI Sharon 04-17-2024 Natriuretic peptide B (Bld) [Mass/Vol] 37.2 pg/mL Normal 0-100 [facility] Comment on above: Performed By: #### L 100.0100, [id number] #### [facility] [address] [place], [address] Basic Metabolic Profile (BMP )on 04-17-2024 BUN/CRE 11.2 RATIO Normal 10-20 [facility] Comment on above: Performed By: #### L 100.0100, [id number] #### [facility] [address] [place], [address] CA,Total 9.0 mg/dL Normal 8.5-10.1 [facility] Comment on above: Performed By: #### L 100.0100, [id number] #### [facility] [address] [place], [address] Chloride [Moles/Vol] 107 mmol/L Normal 98-107 [facility] Comment on above: Performed By: #### L 100.0100, [id number] #### [facility] [address] [place], [address] CO2 [Moles/Vol] 27.0 mmol/L Normal 21.0-32.0 [facility] Comment on above: Performed By: #### L 100.0100, [id number] #### [facility] [address] [place], [address] Creatinine [Mass/Vol] 1.79 mg/dL High 0.70-1.30 [facility] Comment on above: Result Comment: The validity of the calculated GFR GFRAA in patients over 70 years has not been determined. Clinical correlation is essential. Performed By: #### L 100.0100, L503.7505 #### [facility] [address] [place], [address] EST GFR - AA 47 mL/min Low >60 [facility] Comment on above: Result Comment: Afri can Thai GFR Calc Performed By: #### L 100.0100, [id number] #### [facility] [address] [place], [address] GAP 4 Low 5-15 [facility] Comment on above: Performed By: #### L 100.0100, [id number] #### [facility] [address] [place], [address] GFR/1.73 sq M.predicted among non-blacks MDRD (S/P/Bld) [Vol rate/Area] 39 mL/min/{1.73_m2} Low >60 [facility] Comment on above: Result Comment: Non- GFR Calc Performed By: #### L 100.0100, [id number] #### [facility] [address] [place], [address] Glucose [Mass/Vol] 228 mg/dL High 74-106 [facility] Comment on above: Result Comment: Gluc ose result greater than or equal to 200 mg/dL suggests DIABETES MELLITUS per A.D.A. criteria. Performed By: #### L 100.0100, [id number] #### [facility] [address] [place], [address] Potassium [Moles/Vol] 4.8 mmol/L Normal 3.5-5.1 [facility] Comment on above: Performed By: #### L 100.0100, [id number] #### [facility] [address] [place], [address] Sodium [Moles/Vol] 138 mmol/L Normal 136-145 [facility] Comment on above: Performed By: #### L 100.0100, [id number] #### [facility] [address] [place], [address] Urea nitrogen [Mass/Vol] 20 mg/dL High 7- [facility] Comment on above: Performed By: #### L 100.0100, [id number] #### [facility] [address] [place], [address] Basophil percentageOrdered B y: Gustabo Pérez on 04-17-2024 Basophils/100 WBC (Bld) 0.5 % 0-1 [facility] Blood urea nitrogen (BUN)/cr eatinine ratioOrdered By: Gustabo Pérez on 04-17-2024 Urea nitrogen/Creatinine [Mass ratio] 11.2 mg/mg 10- [facility] CBC W/Diff, Automatedon 04-02 Absolute Lymph 1.29 X10 3/uL Normal 0.83-4.51 [facility] Comment on above: Performed By: #### L 100.0100, [id number] #### [facility] [address] [place], [address] Absolute Neut 6.0 X10 3/uL Normal 2.0-7.7 [facility] Comment on above: Performed By: #### L 100.0100, [id number] #### [facility] [address] [place], [address] Basophils/100 WBC (Bld) 0.5 % Normal 0-1 [facility] Comment on above: Performed By: #### L 100.0100, [id number] #### [facility] [address] [place], [address] Eosinophils/100 WBC (Bld) 1.2 % Normal 0-5 [facility] Comment on above: Performed By: #### L 100.0100, [id number] #### [facility] [address] [place], [address] Erythrocyte distribution width (RBC) [Ratio] 13.9 % Normal 11.6-14.6 [facility] Comment on above: Performed By: #### L 100.0100, [id number] #### [facility] [address] [place], [address] Hematocrit (Bld) [Volume fraction] 41.0 % Normal 40-54 [facility] Comment on above: Performed By: #### L 100.0100, [id number] #### [facility] [address] [place], [address] Hemoglobin (Bld) [Mass/Vol] 13.2 g/dL Normal 13.0-16.5 [facility] Comment on above: Performed By: #### L 100.0100, [id number] #### [facility] [address] [place], [address] IG% 0.600 Normal 0.0-0.9 [facility] Comment on above: Result Comment: IG% - Immature Granulocytes (promyelocytes, myelocytes and metamyelocytes) > 1% indicates that a LEFT SHIFT is Present. Performed By: #### L 100.0100, [id number] #### [facility] [address] [place], [address] Lymphocytes/100 WBC (Bld) 15.7 % Low 19-41 [facility] Comment on above: Performed By: #### L 100.0100, [id number] #### [facility] [address] [place], [address] MCH (RBC) [Entitic mass] 29.2 pg Normal 27.0-32.0 [facility] Comment on above: Performed By: #### L 100.0100, [id number] #### [facility] [address] [place], [address] MCHC (RBC) [Mass/Vol] 32.2 g/dL Normal 32-36 [facility] Comment on above: Performed By: #### L 100.0100, [id number] #### [facility] [address] [place], [address] MCV (RBC) [Entitic vol] 90.7 fL Normal 80-94 [facility] Comment on above: Performed By: #### L 100.0100, [id number] #### [facility] [address] [place], [address] Monocytes/100 WBC (Bld) 8.5 % Normal 0-10 [facility] Comment on above: Performed By: #### L 100.0100, [id number] #### [facility] [address] [place], [address] Neutrophils/100 WBC (Bld) 73.5 % High 47-70 [facility] Comment on above: Performed By: #### L 100.0100, [id number] #### [facility] [address] [place], [address] Nucleated RBC (Bld) [#/Vol] 0 10*3/uL Normal 0-5 [facility] Comment on above: Performed By: #### L 100.0100, [id number] #### [facility] [address] [place], [address] Platelet mean volume (Bld) [Entitic vol] 12.3 fL High 6.2-12.0 [facility] Comment on above: Performed By: #### L 100.0100, [id number] #### [facility] [address] [place], [address] Platelets (Bld) [#/Vol] 185 10*3/uL Normal 150-450 [facility] Comment on above: Performed By: #### L 100.0100, [id number] #### [facility] [address] [place], [address] RBC (Bld) [#/Vol] 4.52 10*6/uL Low 4.6-6.2 [facility] Comment on above: Performed By: #### L 100.0100, [id number] #### [facility] [address] [place], [address] RDW SD 46.4 fl High 35.1-43.9 [facility] Comment on above: Performed By: #### L 100.0100, [id number] #### [facility] [address] [place], [address] WBC (Bld) [#/Vol] 8.2 10*3/uL Normal 4.4-11.0 [facility] Comment on above: Performed By: #### L 100.0100, [id number] #### [facility] [address] [place], [address] Carbon dioxide measurementOr dered By: Gustabo Pérez on 04-17-2024 CO2 [Moles/Vol] 27.0 mmol/L 21.0-32.0 [facility] Cardiology Visit Reporton Cardiology Visit Report [facility] [address] [place], [place] [address] OFFICE VISIT Date of Service: 04/17/24 MR#: [id number] Acct: [id number] Name: ERIBERTO RICO Rep #: [id number] : 1945 Provider: YRN arvizu Age/Sex: 78/M Location: [facility] Status: Signed HPI HPI History of Present Illness Details: This gentleman with history of coronary artery disease status post percutaneous intervention to the RCA for in-stent restenosis in 2022, hypertension, dyslipidemia, diabetes mellitus and obesity is here for follow-up visit. He also has history of COPD. He continues with chest discomfort. He denies palpitations. He acknowledges bilateral lower extreme edema. He denies claudication. He continues with shortness of breath activity. She denies shortness of breath at rest or orthopnea. He denies lightheadedness, near-syncope, or syncope. He acknowledges dizziness and fatigue. He states that he has held his own on account of leg cramps. He acknowledges fluctuating blood pressures. He acknowledges bright red blood in stool. 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 Accompanied by: Self Is patient in pain?: No Allergies No Known Allergies Allergy (Verified 04/17/24 15:56) Medications ???Medication ???Instructions ???Recorded ???Confirmed ???Type aspirin 81 mg tablet,delayed 81 mg PO DAILY@0800 health 01/21/17 04/17/24 History release maintenance mirtazapine 15 mg tablet (Remeron) 15 mg PO QHS sleep 09/21/18 04/17/24 History cyanocobalamin (vitamin B-12) 1,000 mcg PO DAILY vitamin ##0 06/01/19 04/17/24 History 1,000 mcg capsule magnesium oxide 400 mg (241.3 mg 800 mg PO DAILY SUPPLEMENT 08/01/21 04/17/24 History magnesium) tablet potassium chloride 20 mEq 60 meq PO BID supplement 08/01/21 04/17/24 History tablet,extended release(part/cryst) cetirizine 10 mg tablet 10 mg PO DAILY PRN Allergic 09/16/21 04/17/24 History Reaction cholecalciferol (vitamin D3) [address] 09/16/21 04/17/24 History mcg (1,000 unit) tablet fluoxetine 40 mg capsule 80 mg PO DAILY DEPRESSION 90 days 09/16/21 04/17/24 History #180 caps metformin 500 mg tablet 500 mg PO BID DM 08/19/22 04/17/24 History nitroglycerin 0.4 mg sublingual 0.4 mg sublingual Q5-15M PRN CHEST 08/19/22 04/17/24 Rx tablet PAIN #25 tabs clopidogrel 75 mg tablet [address] #90 tabs 07/07/23 04/17/24 Rx carvedilol 6.25 mg tablet (Coreg) 6.25 mg PO BID #60 tabs 09/16/23 04/17/24 Rx amlodipine 5 mg tablet 5 mg PO DAILY #30 tabs 09/24/23 04/17/24 Rx losartan 100 mg tablet 100 mg PO DAILY #90 tabs 10/01/23 04/17/24 Rx acetaminophen 325 mg tablet 650 mg PO Q6H PRN Pain 1-02/0910/12/23 04/17/24 History spironolactone 50 mg tablet 50 mg PO DAILY 10/12/23 04/17/24 History isosorbide mononitrate 60 mg 60 mg PO DAILY #30 tabs 10/19/23 04/17/24 Rx tablet,extended release 24 hr meclizine 25 mg tablet 25 mg PO DAILY PRN 10/29/23 04/17/24 History atorvastatin 40 mg tablet 40 mg PO QHS CHOLESTEROL #90 tabs 11/02/23 04/17/24 Rx pantoprazole 40 mg tablet,delayed 40 mg PO DAILY GERD #90 tabs 12/10/23 04/17/24 Rx release glimepiride 4 mg tablet 4 mg PO QDAY 03/20/24 04/17/24 History furosemide 40 mg tablet 40 mg PO BID #180 tabs 03/22/24 04/17/24 Rx gabapentin 100 mg capsule 200 mg PO BID PRN 04/17/24 04/17/24 History hydrocodone-acetamin ophen 5-325mg 1 tab PO BID PRN 04/17/24 04/17/24 History 5mg-325mg semaglutide 0.25 mg or 0.5 mg (2 0.25 mg (0.368 mL) subcut QWEEK 4 04/17/24 04/17/24 Rx mg/3 mL) subcutaneous pen injector weeks #1.472 mL (Ozempic) Have you fallen in the past year?: Yes PFSH Medical History Unstable angina Fatigue Syncope Left-sided weakness History of COVID-19 Presence of stent in coronary artery ( 08/31/22) Dyslipidemia Diabetes mellitus 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 Coronary artery disease Angina pectoris Abnormal PFT Chest heaviness Palpitations DEAN (dyspnea on exertion) Dizziness Leg pain Cough Exposure to COVID-19 virus Nonhealing nonsurgical wound with fat layer exposed Laceration without foreign body of scalp, subsequent encounter Acute left-sided weakness Essential hypertension CHF (congestive heart failure) History of melanoma Obesity (BMI 35.0-39.9 without comorbidity) CAD (coronary artery disease) 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.9) COPD (chronic ob (more content not included)... Normal [facility] Chloride measurementOrdered By: Gustabo Pérez on 04-17-2024 Chloride [Moles/Vol] 107 mmol/L 98-107 [facility] Eosinophil percentageOrdered By: Gustabo Pérez on 04-17-2024 Eosinophils/100 WBC (Bld) 1.2 % 0-5 [facility] Erythrocyte distribution wid th ratioOrdered By: Gustabo Pérez on 04-17-2024 Erythrocyte distribution width (RBC) [Ratio] 13.9 % 11.6-14.6 [facility] Erythrocyte distribution wid th standard deviationOrdered By: Gustabo Pérez on 04-17-2024 Erythrocyte distribution width (RBC) [Entitic vol] 46.4 fL High 35.1-43.9 [facility] Estimated glomerular filtrat ion rate (GFR) AmericanOrdered By: Gustabo Pérez on 04-17-2024 Estimated GFR (MDRD) Amer 47 mL/min Low >60 [facility] Comment on above: GFR Calc Glomerular filtration rate ( GFR) estimationOrdered By: Gustabo Pérez on 04-17-2024 Estimated GFR (MDRD) Non-Af Amer 39 mL/min Low >60 [facility] Comment on above: Non- GFR Calc Glucose measurementOrdered B y: Gustabo Pérez on 04-17-2024 Glucose [Mass/Vol] 228 mg/dL High 74-106 [facility] Comment on above: Glucose result great er than or equal to 200 mg/dLsuggests DIABETES MELLITUS per A.D.A. criteria. Hematocrit Auto (Bld) [Volum e fraction]Ordered By: Gustabo Pérez on 04-17-2024 Hematocrit (Bld) [Volume fraction] 41.0 % 40-54 [facility] Hemoglobin measurementOrdere d By: Gustabo Pérez on 04-17-2024 Hemoglobin (Bld) [Mass/Vol] 13.2 g/dL 13.0-16.5 [facility] Immature granulocytes/100 WB C Auto (Bld)Ordered By: Gustabo Pérez on 04-17-2024 Immature granulocytes/100 WBC (Bld) 0.600 % 0.0-0.9 [facility] Comment on above: IG% - Immature Granu locytes (promyelocytes, myelocytes and metamyelocytes) > 1% indicates that a LEFT SHIFT is Present. Lymphocytes Auto (Unsp spec) [#/Vol]Ordered By: Gustabo Pérez on 04-17-2024 Lymphocytes (Bld) [#/Vol] 1.29 10*3/uL 0.83-4.51 [facility] Lymphocytes/100 WBC Auto (Un sp spec)Ordered By: Gustabo Pérez on 04-17-2024 Lymphocytes/100 WBC (Bld) 15.7 % Low 19-41 [facility] MCV (mean corpuscular volume ) determinationOrdered By: Gustabo Pérez on 04-17-2024 MCV (RBC) [Entitic vol] 90.7 fL 80-94 [facility] Mean corpuscular hemoglobin (MCH) determinationOrdered By: Gustabo Pérez on 04-17-2024 MCH (RBC) [Entitic mass] 29.2 pg 27.0-32.0 [facility] Mean corpuscular hemoglobin concentration (MCHC) determinationOrdered By: Gustabo Pérez on 04-17-2024 MCHC (RBC) [Mass/Vol] 32.2 g/dL 32-36 [facility] Mean platelet volume determi nationOrdered By: Gustabo Pérez on 04-17-2024 Platelet mean volume (Bld) [Entitic vol] 12.3 fL High 6.2-12.0 [facility] Monocyte percentageOrdered B y: Gustabo Pérez on 04-17-2024 Monocytes/100 WBC (Bld) 8.5 % 0-10 [facility] Neutrophil percentageOrdered By: Gustabo Pérez on 04-17-2024 Neutrophils/100 WBC (Bld) 73.5 % High 47-70 [facility] Nucleated red blood cell per centageOrdered By: Gustabo Pérez on 04-17-2024 Nucleated RBC/100 WBC (Bld) [Ratio] 0 % 0-5 [facility] Platelet countOrdered By: Lydia Pérez on 04-17-2024 Platelets (Bld) [#/Vol] 185 10*3/uL 150-450 [facility] Potassium measurementOrdered By: Gustabo Pérez on 04-17-2024 Potassium [Moles/Vol] 4.8 mmol/L 3.5-5.1 [facility] RBC Auto (Bld) [#/Vol]Ordere d By: Gustabo Pérez on 04-17-2024 RBC (Bld) [#/Vol] 4.52 10*6/uL Low 4.6-6.2 [facility] Serum anion gap measurementO rdered By: Gustabo Pérez on 04-17-2024 Anion gap [Moles/Vol] 4 mmol/L Low 5-15 [facility] Serum or plasma calcium francine urement (mass/volume)Ordered By: Gustabo Pérez on 04-17-2024 Calcium [Mass/Vol] 9.0 mg/dL 8.5-10.1 [facility] Serum or plasma creatinine m easurement (mass/volume)Ordered By: Gustabo Pérez on 04-17-2024 Creatinine [Mass/Vol] 1.79 mg/dL High 0.70-1.30 [facility] Comment on above: The validity of the calculated GFR & GFRAA in patients over 70 years has not been determined. Clinical correlation is essential. Serum or plasma urea nitroge n measurement (mass/volume)Ordered By: Gustabo Pérez on 04-17-2024 Urea nitrogen [Mass/Vol] 20 mg/dL High 7-18 [facility] Sodium levelOrdered By: Gustabo Pérez on 04-17-2024 Sodium [Moles/Vol] 138 mmol/L 136-145 [facility] White blood cell (WBC) count Ordered By: Gustabo Pérez on 04-17-2024 WBC (Bld) [#/Vol] 8.2 10*3/uL 4.4-11.0 [facility] Office Visit Reporton 2023 Office Visit Report [facility] [address] [address] OFFICE VISIT Date of Service: 03/27/24 MR#: [id number] Acct: [id number] Patient: ERIBERTO RICO Rep #: [id number] : 1945 Provider: Dr. Jose Hay MD Age/Sex: 78/M Location: [facility] [place] Status: Signed Intake Vital Signs 03/20/24 08:28 03/27/24 10:17 Height 5 ft 8.11 in BP 134/79 H Blood Pressure Location Lt brachial Position Sitting Respiration 18 Pulse 67 Pulse Source NIBP Intake Visit Reasons: BP CHECK Chief Complaint: CP, left sided weakness, vertigo Allergies No Known Allergies Allergy (Verified 04/17/24 15:56) Have you fallen in the past year?: No Nursing Note Patient in for a 1wk BP follow-up. Pt stated that he has been experiencing myalgias related to the new order of Metolazone 2.5mg daily. Concerns sent to provider team for further guidance. Assessment and Plan Assessment and Plan Medications: Changed From metolazone 2.5 mg PO QDAY 90 tabs 3RF To metolazone 2.5 mg PO Q OTHER DAY 90 tabs 3RF Clinical Quality Measures Falls Risk Screening/Assistive Devices Have you fallen in the past year?: No 06/01/24 1158 Date Jose Hay MD Cosigner Signature: Date (if applicable) CC: Dr. Marycarmen Rodriguez, DO Normal [facility] Albumin to globulin ratioOrd ered By: Jose Hay on 03-23-2024 Albumin/Globulin [Mass ratio] 1.1 {ratio} 0.9-2.4 [facility] Bilirubin, totalOrdered By: Jose Hay on 03-23-2024 Bilirubin [Mass/Vol] 2.00 mg/dL High 0.20-1.00 [facility] Comment on above: For patients on eltr ombopag therapy, use of Dimension [place] TBIL is not recommended. Blood urea nitrogen (BUN)/cr eatinine ratioOrdered By: Jose Hay on 03-23-2024 Urea nitrogen/Creatinine [Mass ratio] 18.0 mg/mg 10-20 [facility] Carbon dioxide measurementOr dered By: Jose Hay on 03-23-2024 CO2 [Moles/Vol] 28.0 mmol/L 21.0-32.0 [facility] Chloride measurementOrdered By: Jose Hay on 03-23-2024 Chloride [Moles/Vol] 104 mmol/L 98-107 [facility] Comprehensive Metabolic Prof ilon 03-23-2024 Albumin [Mass/Vol] 3.7 g/dL Normal 3.2-5.0 [facility] Comment on above: Order Comment: DR REMY ORDERED BMP AND MAGNESIUM.DR HAY ORDERED LIPID CMP TSH. RANGLE Performed By: #### L [id number], L100.0100 #### [facility] [address] [place], [address] Albumin/Globulin [Mass ratio] 1.1 {ratio} Normal 0.9-2.4 [facility] Comment on above: Order Comment: DR REMY ORDERED BMP AND MAGNESIUM.DR HAY ORDERED LIPID CMP TSH. RANGLE Performed By: #### L [id number], L100.0100 #### [facility] [address] [place], [address] ALK P 92 U/L Normal 45-117 [facility] Comment on above: Order Comment: DR REMY ORDERED BMP AND MAGNESIUM.DR HAY ORDERED LIPID CMP TSH. RANGLE Performed By: #### L [id number], L100.0100 #### [facility] [address] [place], [address] ALT [Catalytic activity/Vol] 52 U/L Normal 16-61 [facility] Comment on above: Order Comment: DR REMY ORDERED BMP AND MAGNESIUM.DR HAY ORDERED LIPID CMP TSH. RANGLE Performed By: #### L [id number], L100.0100 #### [facility] [address] [place], [address] AST [Catalytic activity/Vol] 28 U/L Normal 15-37 [facility] Comment on above: Order Comment: DR REMY ORDERED BMP AND MAGNESIUM.DR HAY ORDERED LIPID CMP TSH. RANGLE Performed By: #### L [id number], L100.0100 #### [facility] [address] [place], [address] Bilirubin [Mass/Vol] 2.00 mg/dL High 0.20-1.00 [facility] Comment on above: Order Comment: DR REMY ORDERED BMP AND MAGNESIUM.DR HAY ORDERED LIPID CMP TSH. RANGLE Result Comment: For patients on eltrombopag therapy, use of Dimension [place] TBIL is not recommended. Performed By: #### L [id number], L100.0100 #### [facility] [address] [place], [address] BUN/CRE 18.0 RATIO Normal 10-20 [facility] Comment on above: Order Comment: DR REMY ORDERED BMP AND MAGNESIUM.DR HAY ORDERED LIPID CMP TSH. RANGLE Performed By: #### L [id number], L100.0100 #### [facility] [address] [place], [address] CA,Total 8.8 mg/dL Normal 8.5-10.1 [facility] Comment on above: Order Comment: DR REMY ORDERED BMP AND MAGNESIUM.DR HAY ORDERED LIPID CMP TSH. RANGLE Performed By: #### L [id number], L100.0100 #### [facility] [address] [place], [address] Chloride [Moles/Vol] 104 mmol/L Normal 98-107 [facility] Comment on above: Order Comment: DR REMY ORDERED BMP AND MAGNESIUM.DR HAY ORDERED LIPID CMP TSH. RANGLE Performed By: #### L [id number], L100.0100 #### [facility] [address] [place], [address] CO2 [Moles/Vol] 28.0 mmol/L Normal 21.0-32.0 [facility] Comment on above: Order Comment: DR REMY ORDERED BMP AND MAGNESIUM.DR HAY ORDERED LIPID CMP TSH. RANGLE Performed By: #### L [id number], L100.0100 #### [facility] [address] [place], [address] Creatinine [Mass/Vol] 1.67 mg/dL High 0.70-1.30 [facility] Comment on above: Order Comment: DR REMY ORDERED BMP AND MAGNESIUM.DR HAY ORDERED LIPID CMP TSH. RANGLE Result Comment: The validity of the calculated GFR GFRAA in patients over 70 years has not been determined. Clinical correlation is essential. Performed By: #### L [id number], L100.0100 #### [facility] [address] [place], [address] EST GFR - AA 51 mL/min Low >60 [facility] Comment on above: Order Comment: DR REMY ORDERED BMP AND MAGNESIUM.DR HAY ORDERED LIPID CMP TSH. RANGLE Result Comment: Afri can Thai GFR Calc Performed By: #### L [id number], L100.0100 #### [facility] [address] [place], [address] GAP 6 Normal 5-15 [facility] Comment on above: Order Comment: DR REMY ORDERED BMP AND MAGNESIUM.DR HAY ORDERED LIPID CMP TSH. RANGLE Performed By: #### L [id number], L100.0100 #### [facility] [address] [place], [address] GFR/1.73 sq M.predicted among non-blacks MDRD (S/P/Bld) [Vol rate/Area] 42 mL/min/{1.73_m2} Low >60 [facility] Comment on above: Order Comment: DR REMY ORDERED BMP AND MAGNESIUM.DR HAY ORDERED LIPID CMP TSH. RANGLE Result Comment: Non- GFR Calc Performed By: #### L [id number], L100.0100 #### [facility] [address] [place], [address] Globulin (S) [Mass/Vol] 3.3 g/dL Normal 2.2-4.2 [facility] Comment on above: Order Comment: DR REMY ORDERED BMP AND MAGNESIUM.DR HAY ORDERED LIPID CMP TSH. RANGLE Performed By: #### L [id number], L100.0100 #### [facility] [address] [place], [address] Glucose [Mass/Vol] 146 mg/dL High 74-106 [facility] Comment on above: Order Comment: DR REMY ORDERED BMP AND MAGNESIUM.DR HAY ORDERED LIPID CMP TSH. RANGLE Result Comment: Fast ing Glucose result greater than or equal to 126 mg/dL suggests DIABETES MELLITUS per A.D.A. criteria. Performed By: #### L [id number], L100.0100 #### [facility] [address] [place], [address] Potassium [Moles/Vol] 4.4 mmol/L Normal 3.5-5.1 [facility] Comment on above: Order Comment: DR REMY ORDERED BMP AND MAGNESIUM.DR HAY ORDERED LIPID CMP TSH. RANGLE Performed By: #### L [id number], L100.0100 #### [facility] [address] [place], [address] Sodium [Moles/Vol] 138 mmol/L Normal 136-145 [facility] Comment on above: Order Comment: DR REMY ORDERED BMP AND MAGNESIUM.DR HAY ORDERED LIPID CMP TSH. RANGLE Performed By: #### L [id number], L100.0100 #### [facility] [address] [place], [address] T PROT 7.0 g/dL Normal 6.4-8.2 [facility] Comment on above: Order Comment: DR REMY ORDERED BMP AND MAGNESIUM.DR HAY ORDERED LIPID CMP TSH. RANGLE Performed By: #### L [id number], L100.0100 #### [facility] [address] [place], [address] Urea nitrogen [Mass/Vol] 30 mg/dL High 7-18 [facility] Comment on above: Order Comment: DR REMY ORDERED BMP AND MAGNESIUM.DR HAY ORDERED LIPID CMP TSH. RANGLE Performed By: #### L [id number], L100.0100 #### [facility] [address] [place], [place], [address] Estimated glomerular filtrat ion rate (GFR) AmericanOrdered By: Jose Hay on 03-23-2024 Estimated GFR (MDRD) Amer 51 mL/min Low >60 [facility] Comment on above: GFR Calc Glomerular filtration rate ( GFR) estimationOrdered By: Jose Hay on 03-23-2024 Estimated GFR (MDRD) Non-Af Amer 42 mL/min Low >60 [facility] Comment on above: Non- GFR Calc Glucose measurementOrdered B y: Jose Hay on 03-23-2024 Glucose [Mass/Vol] 146 mg/dL High 74-106 [facility] Comment on above: Fasting Glucose resu lt greater than or equal to 126 mg/dL suggests DIABETES MELLITUS per A.D.A. criteria. High density lipoprotein (HD L) measurementOrdered By: Jose Hay on 03-23-2024 Cholesterol in HDL [Mass/Vol] 52 mg/dL >40 [facility] Comment on above: The drugs N-Acetylcy steine and Metamizole may falsely depress this assay. Reference Range HDL <40 mg/dL Low HDL Cholesterol HDL >or= 60 mg/dL High HDL Cholesterol Laboratory - Chemistry and C hemistry - challengeOrdered By: Jose Hay on 03-23-2024 AST [Catalytic activity/Vol] 28 U/L 15-37 [facility] Lipid Profileon 03-23-2024 Cholesterol [Mass/Vol] 158 mg/dL Normal 200 [facility] Comment on above: Order Comment: DR REMY ORDERED BMP AND MAGNESIUM.DR HAY ORDERED LIPID CMP TSH. RANGLE Result Comment: <200 mg/dL Desirable 200-240 mg/dL Borderline >240 mg/dL High Risk Performed By: #### L [id number], L100.0100 #### [facility] [address] [place], [address] Cholesterol in HDL [Mass/Vol] 52 mg/dL Normal [facility] Comment on above: Order Comment: DR REMY ORDERED BMP AND MAGNESIUM.DR HAY ORDERED LIPID CMP TSH. RANGLE Result Comment: The drugs N-Acetylcysteine and Metamizole may falsely depress this assay. Reference Range HDL <40 mg/dL Low HDL Cholesterol HDL >or= 60 mg/dL High HDL Cholesterol Performed By: #### L [id number], L100.0100 #### [facility] [address] [place], [address] Cholesterol in LDL [Mass/Vol] 61 mg/dL Normal 0-130 [facility] Comment on above: Order Comment: DR REMY ORDERED BMP AND MAGNESIUM.DR HAY ORDERED LIPID CMP TSH. RANGLE Performed By: #### L [id number], L100.0100 #### [facility] [address] [place], [address] Cholesterol in VLDL [Mass/Vol] 45 mg/dL High 5-40 [facility] Comment on above: Order Comment: DR REMY ORDERED BMP AND MAGNESIUM.DR HAY ORDERED LIPID CMP TSH. RANGLE Performed By: #### L [id number], L100.0100 #### [facility] [address] [place], [address] Triglyceride [Mass/Vol] 225 mg/dL High [facility] Comment on above: Order Comment: DR REMY ORDERED BMP AND MAGNESIUM.DR HAY ORDERED LIPID CMP TSH. RANGLE Result Comment: The drugs N-Acetylcysteine and Metamizole may falsely depress this assay. Serum Triglycerides Reference Interval Normal <150 mg/dL Borderline high 150 - 199 mg/dL High 200 - 499 mg/dL Very High > or = 500 mg/dL Performed By: #### L 500.4050, L100.0100 #### [facility] [address] [place], [address] Low density lipoprotein (LDL ) cholesterol measurementOrdered By: Jose Hay on 03-23-2024 Cholesterol in LDL [Mass/Vol] 61 mg/dL 0-130 [facility] Magnesiumon 03-23-2024 Magnesium [Mass/Vol] 2.1 mg/dL Normal 1.6-2.6 [facility] Comment on above: Order Comment: DR REMY ORDERED BMP AND MAGNESIUM.DR HAY ORDERED LIPID CMP TSH. RANGLE Performed By: #### L [id number], L100.0100 #### [facility] [address] [place], [address] Magnesium measurementOrdered By: Jose Hay on 03-23-2024 Magnesium [Mass/Vol] 2.1 mg/dL 1.6-2.6 [facility] Potassium measurementOrdered By: Jose Hay on 03-23-2024 Potassium [Moles/Vol] 4.4 mmol/L 3.5-5.1 [facility] Serum anion gap measurementO rdered By: Jose Hay on 03-23-2024 Anion gap [Moles/Vol] 6 mmol/L 5-15 [facility] Serum globulin measurementOr dered By: Jose Hay on 03-23-2024 Globulin (S) [Mass/Vol] 3.3 g/dL 2.2-4.2 [facility] Serum or plasma alanine guerrero otransferase (ALT) measurementOrdered By: Jose Hay on 03-23-2024 ALT [Catalytic activity/Vol] 52 U/L 16-61 [facility] Serum or plasma albumin francine urement (mass/volume)Ordered By: Jose Hay on 03-23-2024 Albumin [Mass/Vol] 3.7 g/dL 3.2-5.0 [facility] Serum or plasma alkaline bell sphatase measurementOrdered By: Jose Hay on 03-23-2024 ALP [Catalytic activity/Vol] 92 U/L 45-117 [facility] Serum or plasma calcium francine urement (mass/volume)Ordered By: Jose Hay on 03-23-2024 Calcium [Mass/Vol] 8.8 mg/dL 8.5-10.1 [facility] Serum or plasma cholesterol measurement (mass/volume)Ordered By: Jose Hay on 03-23-2024 Cholesterol [Mass/Vol] 158 mg/dL <200 [facility] Comment on above: <200 mg/dL Desirable 200-240 mg/dL Borderline >240 mg/dL High Risk Serum or plasma creatinine m easurement (mass/volume)Ordered By: Jose Hay on 03-23-2024 Creatinine [Mass/Vol] 1.67 mg/dL High 0.70-1.30 [facility] Comment on above: The validity of the calculated GFR & GFRAA in patients over 70 years has not been determined. Clinical correlation is essential. Serum or plasma urea nitroge n measurement (mass/volume)Ordered By: Jose Hay on 03-23-2024 Urea nitrogen [Mass/Vol] 30 mg/dL High 7-18 [facility] Sodium levelOrdered By: Ernst Hay on 03-23-2024 Sodium [Moles/Vol] 138 mmol/L 136-145 [facility] TSH QnOrdered By: Jose rodriguez on 03-23-2024 Thyroid Stimulating Hormone (TSH) 5.340 uIU/mL High 0.358-3.740 [facility] Thyroid Stim Hormone (TSH)on 03-23-2024 TSH 5.340 uIU/mL High 0.358-3.740 [facility] Comment on above: Order Comment: DR REMY ORDERED BMP AND MAGNESIUM.DR HAY ORDERED LIPID CMP TSH. RANGLE Performed By: #### L 500.4050, L100.0100 #### [facility] [place], [place], [id number] Total proteinOrdered By: Emmanuel Hay on 03-23-2024 Protein [Mass/Vol] 7.0 g/dL 6.4-8.2 [facility] Triglycerides measurementOrd ered By: Jose aHy on 03-23-2024 Triglyceride [Mass/Vol] 225 mg/dL High <199 [facility] Comment on above: The drugs N-Acetylcy steine and Metamizole may falsely depress this assay.Serum Triglycerides Reference Interval Normal <150 mg/dL Borderline high 150 - 199 mg/dL High 200 - 499 mg/dL Very High > or = 500 mg/dL Very low density lipoprotein (VLDL) cholesterol measurementOrdered By: Jose Hay on 03-23-2024 VLDL Cholesterol 45 mg/dL High 5-40 [facility] Cardiology Visit Reporton Cardiology Visit Report [facility] [place], [place] [address] OFFICE VISIT Date of Service: 03/20/24 MR#: [id number] Acct: [id number] Name: ERIBERTO RICO Rep #: [id number] : 1945 Provider: Dr. Jose Hay MD Age/Sex: 78/M Location[place] [facility] [place] Status: Signed HPI HPI History of Present Illness Details: This gentleman with history of coronary artery disease status post percutaneous intervention to the RCA for in-stent restenosis in 2022, hypertension, dyslipidemia, diabetes mellitus and obesity is here for follow-up visit. He also has history of COPD. Regular chest discomfort. Nonspecific about it. No exertional component. He has his chronic shortness of breath with exertion. Denies orthopnea. He does have chronic lower extremity swelling. 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 Accompanied by: Self Is patient in pain?: No Allergies No Known Allergies Allergy (Verified 03/20/24 10:35) Medications ???Medication ???Instructions ???Recorded ???Confirmed ???Type aspirin 81 mg tablet,delayed 81 mg PO DAILY@0800 health 01/21/17 03/20/24 History release maintenance mirtazapine 15 mg tablet (Remeron) 15 mg PO QHS sleep 09/21/18 03/20/24 History cyanocobalamin (vitamin B-12) 1,000 mcg PO DAILY vitamin ##0 06/01/19 03/20/24 History 1,000 mcg capsule magnesium oxide 400 mg (241.3 mg 800 mg PO DAILY SUPPLEMENT 08/01/21 03/20/24 History magnesium) tablet potassium chloride 20 mEq 60 meq PO BID supplement 08/01/21 03/20/24 History tablet,extended release(part/cryst) cetirizine 10 mg tablet 10 mg PO DAILY PRN Allergic 09/16/21 03/20/24 History Reaction cholecalciferol (vitamin D3) [address] 09/16/21 03/20/24 History mcg (1,000 unit) tablet fluoxetine 40 mg capsule 80 mg PO DAILY DEPRESSION 90 days 09/16/21 03/20/24 History #180 caps metformin 500 mg tablet 500 mg PO BID DM 08/19/22 03/20/24 History nitroglycerin 0.4 mg sublingual 0.4 mg sublingual Q5-15M PRN CHEST 08/19/22 03/20/24 Rx tablet PAIN #25 tabs furosemide 40 mg tablet 80 mg (2 x 40 mg) PO DAILY 03/24/23 03/20/24 Rx diuretic #180 tabs clopidogrel 75 mg tablet [address] #90 tabs 07/07/23 03/20/24 Rx carvedilol 6.25 mg tablet (Coreg) 6.25 mg PO BID #60 tabs 09/16/23 03/20/24 Rx amlodipine 5 mg tablet 5 mg PO DAILY #30 tabs 09/24/23 03/20/24 Rx losartan 100 mg tablet 100 mg PO DAILY #90 tabs 10/01/23 03/20/24 Rx acetaminophen 325 mg tablet 650 mg PO Q6H PRN Pain 1-02/0910/12/23 03/20/24 History spironolactone 50 mg tablet 50 mg PO DAILY 10/12/23 03/20/24 History isosorbide mononitrate 60 mg 60 mg PO DAILY #30 tabs 10/19/23 03/20/24 Rx tablet,extended release 24 hr meclizine 25 mg tablet 25 mg PO DAILY PRN 10/29/23 03/20/24 History atorvastatin 40 mg tablet 40 mg PO QHS CHOLESTEROL #90 tabs 11/02/23 03/20/24 Rx pantoprazole 40 mg tablet,delayed 40 mg PO DAILY GERD #90 tabs 12/10/23 03/20/24 Rx release gabapentin 100 mg capsule 200 mg PO BID 03/20/24 03/20/24 History glimepiride 4 mg tablet 4 mg PO QDAY 03/20/24 03/20/24 History Ejection fraction %: 55 Have you fallen in the past year?: Yes (light headed, near syncope; no major injuries) PFSH Medical History Abnormal PFT Acute left-sided weakness Angina pectoris Atherosclerotic heart disease [place] coronary artery w/angina pectoris CAD (coronary artery disease) Chest heaviness CHF (congestive heart failure) 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, stage 3 COPD (chronic obstructive pulmonary disease) Coronary artery disease Cough Diabetes mellitus Dizziness DEAN (dyspnea on exertion) Dyslipidemia Essential hypertension Exposure to COVID-19 virus Fatigue History of COVID-19 History of melanoma Hyperlipidemia Laceration without foreign body of scalp, subsequent encounter Left-sided weakness Leg pain Nonhealing nonsurgical wound with fat layer exposed Obesity 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.9) Obesity (BMI 35.0-39.9 without comorbidity) Obstructive sleep apnea Palpitations Presence of stent in coronary artery ( 08/31/22) Syncope TIA (transient ischemic attack) Type 2 diabetes mellitus without complications Unstable angina Surgical History History of herniorrhaphy History of percutaneous transluminal coronary angioplasty (08/18/18) History of prostatectomy (more content not included)... Normal [facility] Lipid Profileon 11-18-2023 Cholesterol [Mass/Vol] 177 mg/dL Normal 200 [facility] Comment on above: Result Comment: <200 mg/dL Desirable 200-240 mg/dL Borderline >240 mg/dL High Risk Performed By: #### L 500.4050, L100.0100 #### [facility] [address] [place], [address] Cholesterol in HDL [Mass/Vol] 60 mg/dL Normal [facility] Comment on above: Result Comment: The drugs N-Acetylcysteine and Metamizole may falsely depress this assay. Reference Range HDL <40 mg/dL Low HDL Cholesterol HDL >or= 60 mg/dL High HDL Cholesterol Performed By: #### L 500.4050, L100.0100 #### [facility] [address] [place], [address] Cholesterol in LDL [Mass/Vol] 68 mg/dL Normal 0-130 [facility] Comment on above: Performed By: #### L 500.4050, L100.0100 #### [facility] [address] [place], [address] Cholesterol in VLDL [Mass/Vol] 49 mg/dL High 5-40 [facility] Comment on above: Performed By: #### L 500.4050, L100.0100 #### [facility] [address] [place], [address] Triglyceride [Mass/Vol] 244 mg/dL High [facility] Comment on above: Result Comment: The drugs N-Acetylcysteine and Metamizole may falsely depress this assay. Serum Triglycerides Reference Interval Normal <150 mg/dL Borderline high 150 - 199 mg/dL High 200 - 499 mg/dL Very High > or = 500 mg/dL Performed By: #### L 500.4050, L100.0100 #### [facility] [address] [place], [address] Liver Profileon 11-18-2023 Albumin [Mass/Vol] 3.5 g/dL Normal 3.2-5.0 [facility] Comment on above: Performed By: #### L 500.4050, L100.0100 #### [facility] [address] [place], [address] ALK P 110 U/L Normal 45-117 [facility] Comment on above: Performed By: #### L 500.4050, L100.0100 #### [facility] [address] [place], [address] ALT [Catalytic activity/Vol] 30 U/L Normal 16-61 [facility] Comment on above: Performed By: #### L 500.4050, L100.0100 #### [facility] [address] [place], [address] AST [Catalytic activity/Vol] 19 U/L Normal 15-37 [facility] Comment on above: Performed By: #### L 500.4050, L100.0100 #### [facility] [address] [place], [address] Bilirubin [Mass/Vol] 1.00 mg/dL Normal 0.20-1.00 [facility] Comment on above: Result Comment: For patients on eltrombopag therapy, use of Dimension [place] TBIL is not recommended. Performed By: #### L 500.4050, L100.0100 #### [facility] [address] [place], [address] Bilirubin.direct [Mass/Vol] 0.23 mg/dL Normal 0.00-0.30 [facility] Comment on above: Performed By: #### L 500.4050, L100.0100 #### [facility] [address] [place], [address] Globulin (S) [Mass/Vol] 3.5 g/dL Normal 2.2-4.2 [facility] Comment on above: Performed By: #### L 500.4050, L100.0100 #### [facility] [address] [place], [address] T PROT 7.0 g/dL Normal 6.4-8.2 [facility] Comment on above: Performed By: #### L 500.4050, L100.0100 #### [facility] [address] [place], [place], [id number] Cardiology Visit Reporton Cardiology Visit Report [facility] [address] [place], [place] [address] OFFICE VISIT Date of Service: 10/29/23 MR#: [id number] Acct: [id number] Name: ERIBERTO RICO Rep #: [id number] : 1945 Provider: YRN petit Age/Sex: 78/M Location: [facility] Status: Signed HPI HPI History of Present Illness Details: Eriberto Rico is a 78-year-old gentleman who presents here today for a cardiovascular follow-up visit. 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 He does have frequent chest pain and has been to ECP therapy a few times. He did have a second opinion at [facility]. He was seen by Dr. Hay, and underwent a cardiac catheterization on 08/31/2022, and underwent a successful PTCA/KENDALL Prox RCA ISR. He presented to the emergency room in October of this year with complaints of chest pain. He did undergo a cardiac catheterization on 10/13/2023 which demonstrated patent coronary anatomy with previously placed stent in the right coronary artery which is patent with mild in-stent stenosis. 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 From a cardiac standpoint, the patient is doing well. He does use a cane to help with ambulation. He denies any palpitations. He continues to have occasional chest pain. This is located left chest, and is dull/sharp pain. He states this can occur with exertion and at rest. He does have SOB with exertion and at rest. He states that he breaths heavy with carrying a bucket of water. He denies Orthopnea, and PND. He does acknowledge blood in stool-he states his PCP is aware. He does acknowledge a decrease in energy level. He denies myalgias, or claudication. He does not have edema, or sudden weight gain. He does acknowledge occasional lightheadedness. He denies dizziness, syncopal or near syncopal episodes, and headaches. Intake Vital Signs 09/16/23 09:32 10/12/23 18:54 10/29/23 12:59 Height 5 ft 8 in 5 ft 8.11 in 5 ft 8.11 in Weight: 232 lb BMI 35.2 BP 147/82 H Blood Pressure Location Lt brachial Position Sitting Respiration 18 Pulse 77 Pulse Source Monitor Pulse Oximetry (%) 97 Intake Visit Reasons: 6 W FU [employer] Al[employer] Required: No Is patient in pain?: No Allergies No Known Allergies Allergy (Verified 10/29/23 13:14) Medications ???Medication ???Instructions ???Recorded ???Confirmed ???Type aspirin 81 mg tablet,delayed 81 mg PO DAILY@0800 health 01/21/17 10/29/23 History release maintenance mirtazapine 15 mg tablet (Remeron) 15 mg PO QHS sleep 09/21/18 10/29/23 History cyanocobalamin (vitamin B-12) 1,000 mcg PO DAILY vitamin ##0 06/01/19 10/29/23 History 1,000 mcg capsule magnesium oxide 400 mg (241.3 mg 800 mg PO DAILY SUPPLEMENT 08/01/21 10/29/23 History magnesium) tablet potassium chloride 20 mEq 60 meq PO BID supplement 08/01/21 10/29/23 History tablet,extended release(part/cryst) cetirizine 10 mg tablet 10 mg PO DAILY PRN Allergic 09/16/21 10/29/23 History Reaction cholecalciferol (vitamin D3) [address] 09/16/21 10/29/23 History mcg (1,000 unit) tablet fluoxetine 40 mg capsule 80 mg PO DAILY DEPRESSION 90 days 09/16/21 10/29/23 History #180 caps metformin 500 mg tablet 500 mg PO BID DM 08/19/22 10/29/23 History nitroglycerin 0.4 mg sublingual 0.4 mg sublingual Q5-15M PRN CHEST 08/19/22 10/29/23 Rx tablet PAIN #25 tabs atorvastatin 40 mg tablet 40 mg PO QHS CHOLESTEROL #90 tabs 11/04/22 10/29/23 Rx pantoprazole 40 mg tablet,delayed 40 mg PO DAILY GERD #90 tabs 12/15/22 10/29/23 Rx release furosemide 40 mg tablet 80 mg (2 x 40 mg) PO DAILY 03/24/23 10/29/23 Rx diuretic #180 tabs clopidogrel 75 mg tablet [address] #90 tabs 07/07/23 10/29/23 Rx carvedilol 6.25 mg tablet (Coreg) 6.25 mg PO BID #60 tabs 09/16/23 10/29/23 Rx amlodipine 5 mg tablet 5 mg PO DAILY #30 tabs 09/24/23 10/29/23 Rx losartan 100 mg tablet 100 mg PO DAILY #90 tabs 10/01/23 10/29/23 Rx acetaminophen 325 mg tablet 650 mg PO Q6H PRN Pain 1-02/0910/12/23 10/29/23 History empagliflozin 25 mg tablet 25 mg PO DAILY 10/12/23 10/29/23 History (Jardiance) spironolactone 50 mg tablet 50 mg PO DAILY 10/12/23 10/29/23 History isosorbide mononitrate 60 mg 60 mg PO DAILY #30 tabs 10/19/23 10/29/23 Rx tablet,extended release 24 hr meclizine 25 mg tablet 25 mg PO DAILY PRN 10/29/23 10/29/23 History ranolazine 1,000 mg 1,000 mg PO BID take with food #60 10/29/23 10/29/23 Rx tablet,extended release,12 hr tabs Have you fallen in the past year?: Yes PFS (more content not included)... Normal [facility] Echo Complete W/ Contraston 10-22-2023 Echo Complete W/ Contrast [facility] [address] [place] [address] Echo Complete W/ Contrast 10/22/23 0807 MR#: [id number] Acct: [id number] Name: ERIBERTO RICO Rep #: [id number] : 1945 78 From: Jose Hay MD Attending Dr: PARISH Chase Status: REG CLI Ordering Dr: Adina Mariscal Date: 10/02 05/26 Location: [facility] Sex: M C Admitted: Reason For Study: DEAN Procedure This was a 2D Doppler, Color Flow transthoracic echocardiogram. The study was technically difficult. Due to poor accoustic windows and body habitus. Contrast injection was performed. Exam performed in department. Left Ventricle Normal LV size. Mild concentric left ventricular hypertrophy. The left ventricular ejection fraction is 55 %. Stage 1 diastolic dysfunction. Right Ventricle Normal right ventricle. Atria The left and right atria are normal. Mitral Valve The mitral valve is structurally normal. No prolapse or stenosis seen. Tricuspid Valve Normal tricuspid valve. Aortic Valve Moderate diffuse aortic valve calcification. Pulmonic Valve The pulmonic valve is not well visualized. Great Vessels Normal sized aortic root. Pericardium/Pleural No pericardial effusion. Medication 22 gauge I.V. with prn adaptor inserted into right arm. Diluted definity 2.0ml given slow IV push to enhance endocardial definition. MMode/2D Measurements Calculations LVIDd: 4.6 cm IVSd: 1.2 cm Ao root diam: 2.8 cm LVIDs: 3.0 cm LVPWd: 1.2 cm RVDd: 3.4 cm FS: 33.2 % _ LAV(MOD-bp): 49.7 ml LVAd ap4: 26.4 cm2 SV(MOD-sp4): 41.0 ml LAV(MOD-bp) Indexed: 22.7 ml/m2 LVLd ap4: 7.9 cm LAV(MOD-sp2): 43.6 ml EDV(MOD-sp4): 74.3 ml LAV(MOD-sp4): 47.9 ml EDV(sp4-el): 74.6 ml LVAs ap4: 16.1 cm2 LVLs ap4: 6.5 cm ESV(MOD-sp4): 33.3 ml ESV(sp4-el): 33.6 ml EF(MOD-sp4): 55.2 % EF(sp4-el): 54.9 % _ SV(sp4-el): 41.0 ml LA A4 area: 16.8 cm2 LA dimension(2D): 3.6 cm _ RA A4 area: 14.0 cm2 TAPSE: 1.9 cm Time Measurements MV dec time: 0.25 sec Doppler Measurements Calculations MV E max jong: 59.4 cm/sec Lat Peak E' Jong: 9.5 cm/sec Med Peak E' Jong: 9.2 cm/sec MV A max jong: 92.7 cm/sec E/E' lat: 6.2 E/E' med: 6.5 MV E/A: 0.64 _ MV V2 max: 85.3 cm/sec MV P1/2t max jong: 62.7 cm/sec Ao V2 max: 169.0 cm/sec MV max P.9 mmHg MV P1/2t: 75.9 msec Ao max P.4 mmHg MV V2 mean: 43.2 cm/sec MV dec slope: 242.1 cm/sec2 Ao V2 mean: 118.7 cm/sec MV mean P.87 mmHg MVA(P1/2t): 2.9 cm2 Ao mean P.2 mmHg MV V2 VTI: 23.8 cm Ao V2 VTI: 32.4 cm AV (velocity ratio): 0.66 _ LV V1 max: 108.4 cm/sec PA V2 max: 136.5 cm/sec LV V1 max P.7 mmHg PA V2 mean: 98.3 cm/sec LV V1 mean P.8 mmHg LV V1 mean: 79.8 cm/sec LV V1 VTI: 21.3 cm ECHO/Echo Complete W/ Contrast Interpretation Summary The study was technically difficult. Mild concentric left ventricular hypertrophy. The left ventricular ejection fraction is 55 %. Stage 1 diastolic dysfunction. Moderate diffuse aortic valve calcification. Leaflet excursion limited however no significant gradient. Mean peak gradient 6.2 mmHg. Ordering Physician: Adina Mariscal Referring Physician: Marycarmen Rodriguez Performed By: Treva Black, MONICACS, RVT 10/25/23846 Date Jose Hay MD CC: Dr. Marycarmen Rodriguez DO; PARISH Chase Date Dictated: 10/22/23806 Date Transcribed: 06/24/24 0847 Lumber Sticker: Signed Normal [facility] Basic Metabolic Profile (BMP )on 10-14-2023 BUN Normal 7-18 [facility] Comment on above: Result Comment: Canc elled via OM: Order cancelled - Patient discharged Performed By: #### L 500.2500, L100.0500, L300.3900 #### [facility] [address] [place], [address] BUN/CRE Normal 10-20 [facility] Comment on above: Result Comment: Canc elled via OM: Order cancelled - Patient discharged Performed By: #### L 500.2500, L100.0500, L300.3900 #### [facility] [address] [place], [address] CA,Total Normal 8.5-10.1 [facility] Comment on above: Result Comment: Canc elled via OM: Order cancelled - Patient discharged Performed By: #### L 500.2500, L100.0500, L300.3900 #### [facility] [address] [place], [address] CL Normal 98-107 [facility] Comment on above: Result Comment: Canc elled via OM: Order cancelled - Patient discharged Performed By: #### L 500.2500, L100.0500, L300.3900 #### [facility] [address] [place], [address] CO2 Normal 21.0-32.0 [facility] Comment on above: Result Comment: Canc elled via OM: Order cancelled - Patient discharged Performed By: #### L 500.2500, L100.0500, L300.3900 #### [facility] [address] [place], [address] CREAT,SERUM Normal 0.70-1.30 [facility] Comment on above: Result Comment: Canc elled via OM: Order cancelled - Patient discharged Performed By: #### L 500.2500, L100.0500, L300.3900 #### [facility] [address] [place], [address] EST GFR Normal >60 [facility] Comment on above: Result Comment: Canc elled via OM: Order cancelled - Patient discharged Performed By: #### L 500.2500, L100.0500, L300.3900 #### [facility] [address] [place], [address] EST GFR - AA Normal >60 [facility] Comment on above: Result Comment: Canc elled via OM: Order cancelled - Patient discharged Performed By: #### L 500.2500, L100.0500, L300.3900 #### [facility] [address] [place], [address] GAP Normal 5-15 [facility] Comment on above: Result Comment: Canc elled via OM: Order cancelled - Patient discharged Performed By: #### L 500.2500, L100.0500, L300.3900 #### [facility] [address] [place], [address] GLU Normal 74-106 [facility] Comment on above: Result Comment: Canc elled via OM: Order cancelled - Patient discharged Performed By: #### L 500.2500, L100.0500, L300.3900 #### [facility] [address] [place], [address] Potassium Normal 3.5-5.1 [facility] Comment on above: Result Comment: Canc elled via OM: Order cancelled - Patient discharged Performed By: #### L 500.2500, L100.0500, L300.3900 #### [facility] [address] [place], [address] Basic Metabolic Profile (BMP) Normal 136-145 [facility] Comment on above: Result Comment: Canc elled via OM: Order cancelled - Patient discharged Performed By: #### L 500.2500, L100.0500, L300.3900 #### [facility] [address] [place], [address] CBC-Complete Blood Cnt No Di ffon 10-14-2023 HCT Normal 40-54 [facility] Comment on above: Result Comment: Canc elled via OM: Order cancelled - Patient discharged Performed By: #### L 500.2500, L100.0500, L300.3900 #### [facility] [address] [place], [address] HGB Normal 13.0-16.5 [facility] Comment on above: Result Comment: Canc elled via OM: Order cancelled - Patient discharged Performed By: #### L 500.2500, L100.0500, L300.3900 #### [facility] [address] [place], [address] MCH Normal 27.0-32.0 [facility] Comment on above: Result Comment: Canc elled via OM: Order cancelled - Patient discharged Performed By: #### L 500.2500, L100.0500, L300.3900 #### [facility] [address] [place], [address] MCHC Normal 32-36 [facility] Comment on above: Result Comment: Canc elled via OM: Order cancelled - Patient discharged Performed By: #### L 500.2500, L100.0500, L300.3900 #### [facility] [address] [place], [address] MCV Normal 80-94 [facility] Comment on above: Result Comment: Canc elled via OM: Order cancelled - Patient discharged Performed By: #### L 500.2500, L100.0500, L300.3900 #### [facility] [address] [place], [address] PLT Normal 150-450 [facility] Comment on above: Result Comment: Canc elled via OM: Order cancelled - Patient discharged Performed By: #### L 500.2500, L100.0500, L300.3900 #### [facility] [address] [place], [address] RBC Normal 4.6-6.2 [facility] Comment on above: Result Comment: Canc elled via OM: Order cancelled - Patient discharged Performed By: #### L 500.2500, L100.0500, L300.3900 #### [facility] [address] [place], [address] RDW CV Normal 11.6-14.6 [facility] Comment on above: Result Comment: Canc elled via OM: Order cancelled - Patient discharged Performed By: #### L 500.2500, L100.0500, L300.3900 #### [facility] [address] [place], [address] RDW SD Normal 35.1-43.9 [facility] Comment on above: Result Comment: Canc elled via OM: Order cancelled - Patient discharged Performed By: #### L 500.2500, L100.0500, L300.3900 #### [facility] [address] [place], [address] WBC Normal 4.4-11.0 [facility] Comment on above: Result Comment: Canc elled via OM: Order cancelled - Patient discharged Performed By: #### L 500.2500, L100.0500, L300.3900 #### [facility] [address] [place], [address] Prothrombin Time w/INRon INR Normal [facility] Comment on above: Result Comment: Canc elled via OM: Order cancelled - Patient discharged Performed By: #### L 500.2500, L100.0500, L300.3900 #### [facility] [address] [place], [address] PROTIME Normal 11.7-14.9 [facility] Comment on above: Result Comment: Canc elled via OM: Order cancelled - Patient discharged Performed By: #### L 500.2500, L100.0500, L300.3900 #### [facility] [address] [place], [address] 12 Lead EKGon 10-13-2023 12 Lead EKG [facility] [address] [place] [address] 12 Lead EKG 10/12/23 1910 MR#: [id number] Acct: [id number] Name: ERIBERTO RICO Rep #: [id number] : 1945 78 From: George Ríos MD Attending Dr: Dr. Marycarmen Marlow DO Status: A DM EDMUND Ordering Dr: Jw Rock MD Date: 10/13/23 Location: [facility] Sex: M C Admitted: 10/12/23 Test Reason : CP ADMISSION Blood Pressure : / mmHG Vent. Rate : 068 BPM Atrial Rate : 068 BPM P-R Int : 182 ms QRS Dur : 092 ms QT Int : 414 ms P-R-T Axes : 072 075 046 degrees QTc Int : 440 ms Normal sinus rhythm Normal ECG When compared with ECG of 12-OCT-2023 13:26, MANUAL COMPARISON REQUIRED, DATA IS UNCONFIRMED Confirmed by George Ríos ([id number]), proposal editor ERICA SCOTT ([id number]) on 10/13/2023 9:07:21 AM Referred By: Confirmed By:George Ríos 10/13/23 0907 Date George Ríos MD CC: Dr. Jw Rock MD; Dr. aMrycarmen Rodriguez DO; Dr. Marycarmen Marlow DO Signed Normal [facility] CBC W/Diff, Automatedon 10-01 Absolute Lymph 1.63 X10 3/uL Normal 0.83-4.51 [facility] Comment on above: Performed By: #### L 500.4050, L100.0100 #### [facility] [address] [place], [address] Absolute Neut 5.3 X10 3/uL Normal 2.0-7.7 [facility] Comment on above: Performed By: #### L 500.4050, L100.0100 #### [facility] [address] [place], [address] Basophils/100 WBC (Bld) 0.4 % Normal 0-1 [facility] Comment on above: Performed By: #### L 500.4050, L100.0100 #### [facility] [address] [place], [address] Eosinophils/100 WBC (Bld) 1.2 % Normal 0-5 [facility] Comment on above: Performed By: #### L 500.4050, L100.0100 #### [facility] [address] [place], [address] Erythrocyte distribution width (RBC) [Ratio] 13.9 % Normal 11.6-14.6 [facility] Comment on above: Performed By: #### L 500.4050, L100.0100 #### [facility] [address] [place], [address] Hematocrit (Bld) [Volume fraction] 41.8 % Normal 40-54 [facility] Comment on above: Performed By: #### L 500.4050, L100.0100 #### [facility] [address] [place], [address] Hemoglobin (Bld) [Mass/Vol] 13.4 g/dL Normal 13.0-16.5 [facility] Comment on above: Performed By: #### L 500.4050, L100.0100 #### [facility] [address] [place], [address] IG% 0.300 Normal 0.0-0.9 [facility] Comment on above: Result Comment: IG% - Immature Granulocytes (promyelocytes, myelocytes and metamyelocytes) > 1% indicates that a LEFT SHIFT is Present. Performed By: #### L 500.4050, L100.0100 #### [facility] [address] [place], [address] Lymphocytes/100 WBC (Bld) 20.9 % Normal 19-41 [facility] Comment on above: Performed By: #### L 500.4050, L100.0100 #### [facility] [address] [place], [address] MCH (RBC) [Entitic mass] 29.1 pg Normal 27.0-32.0 [facility] Comment on above: Performed By: #### L 500.4050, L100.0100 #### [facility] [address] [place], [address] MCHC (RBC) [Mass/Vol] 32.1 g/dL Normal 32-36 [facility] Comment on above: Performed By: #### L 500.4050, L100.0100 #### [facility] [address] [place], [address] MCV (RBC) [Entitic vol] 90.9 fL Normal 80-94 [facility] Comment on above: Performed By: #### L 500.4050, L100.0100 #### [facility] [address] [place], [address] Monocytes/100 WBC (Bld) 9.6 % Normal 0-10 [facility] Comment on above: Performed By: #### L 500.4050, L100.0100 #### [facility] [address] [place], [address] Neutrophils/100 WBC (Bld) 67.6 % Normal 47-70 [facility] Comment on above: Performed By: #### L 500.4050, L100.0100 #### [facility] [address] [place], [address] Nucleated RBC (Bld) [#/Vol] 0 10*3/uL Normal 0-5 [facility] Comment on above: Performed By: #### L 500.4050, L100.0100 #### [facility] [address] [place], [address] Platelet mean volume (Bld) [Entitic vol] 12.0 fL Normal 6.2-12.0 [facility] Comment on above: Performed By: #### L 500.4050, L100.0100 #### [facility] [address] [place], [address] Platelets (Bld) [#/Vol] 115 10*3/uL Low 150-450 [facility] Comment on above: Performed By: #### L 500.4050, L100.0100 #### [facility] [address] [place], [address] RBC (Bld) [#/Vol] 4.60 10*6/uL Normal 4.6-6.2 [facility] Comment on above: Performed By: #### L 500.4050, L100.0100 #### [facility] [address] [place], [address] RDW SD 46.7 fl High 35.1-43.9 [facility] Comment on above: Performed By: #### L 500.4050, L100.0100 #### [facility] [address] [place], [address] WBC (Bld) [#/Vol] 7.8 10*3/uL Normal 4.4-11.0 [facility] Comment on above: Performed By: #### L 500.4050, L100.0100 #### [facility] [address] [facility] [address] [address] [place], [address] Cardiac Cath Diagnosticon Cardiac Cath Diagnostic [facility] Imaging Services [address] [place] [address] Cardiac Cath Diagnostic MR#: [id number] Acct: [id number] Name: ERIBERTO RICO Rep #: [id number] : 1945 78 From: Marcin Araujo MD PCP: Dr. Marycarmen Rodriguez, DO Status:ADM EDMUND Patient Name: ERIBERTO RICO Study Date: 10/13/2023 Performing: Marcin Araujo MD Ht: 68.11 inches 173 cm : 1945 Wt: 227.96 lbs 103.4 kg Age: 78 Gender: male BSA: 2.16 PROCEDURE(S) PERFORMED DC01-(23977)LHC/COR/ LV CLINICAL PROFILE AND INDICATIONS Indications: Suspected CAD Heart Failure: None Stress/Imaging Date: 09/13/23Stress Test with SPECT MPI: Negative CAD Presentations: Symptom unlikely to be ischemic. CONCLUSIONS Patent coronary anatomy with previously placed stent in the right coronary artery which is patent with mild in-stent stenosis. 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 RECOMMENDATIONS Medical therapy DESCRIPTION OF PROCEDURE The patient arrived to the procedure lab. The risks and benefits of the procedure as well as a full description of our services here and current unavailability of surgical backup were fully explained to the patient and/or their significant other prior to the catheterization. The Timeout was completed, verifying the correct patient and procedure. The patient's procedural site was prepped and draped in the usual fashion. Local anesthetic was given subcutaneously to right groin region with Lidocaine 2%. Using a modified Seldinger technique, arterial access was obtained via the right femoral artery, a 5Fr sheath was inserted. Left Coronary Artery selective angiography was performed in multiple views using a 5 Fr. JL4 catheter. Right Coronary Artery selective angiography was then performed in multiple views using a 5 Fr. 3DRC (Maximo) catheter. Right Coronary Artery selective angiography was then performed in multiple views using a 5 Fr. JR 5 catheter. Left Ventriculography was performed in JOSEPH projection using a 5 Fr. Pigtail catheter. 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 No high-grade stenosis is noted in this vessel. RIGHT CORONARY ARTERY: There is a dominant vessel previously stented in the proximal and mid regions. There is approximately 30% in-stent stenosis present. The rest of the vessel has mild luminal irregularities present. COMPLICATIONS No Complications PROCEDURE MEDICATIONS Versed 1 mg IV Fentanyl 50 mcg IV Oxygen: 2 L/min via nasal cannula SUMMARY OF HEMODYNAMIC DATA Time AIR REST ECG 09:10:00 AO 122/76 (96) SA 09:20:18 LV 94/7, 23 09:31:12 LV 96/7, 22 09:31:20 LV 93/5, 18 09:32:03 LV 94/7, 18 09:32:05 LVp 98/8, 23 09:32:09 AOp 91/48 (65) 09:32:16 Signed By Marcin Araujo MD On 10/13/2023 09:44:16 Marcin Araujo MD 10/13/23 0944 Date Marcin Araujo MD Cosigner Signature: Date (if indicated) CC: Dr. Marcin Araujo MD; Dr. Marycarmen Rodriguez DO; Dr. Marycarmen Marlow DO Date Dictated: 10/13/23910 Date Transcribed: 10/13/23943 Lumber Sticker: CO Signed Normal [facility] Comprehensive Metabolic Prof ilon 10-13-2023 Albumin [Mass/Vol] 3.0 g/dL Low 3.2-5.0 [facility] Comment on above: Performed By: #### L 500.4050, L100.0100 #### [facility] [address] [place], [address] Albumin/Globulin [Mass ratio] 1.1 {ratio} Normal 0.9-2.4 [facility] Comment on above: Performed By: #### L 500.4050, L100.0100 #### [facility] [address] [place], [address] ALK P 105 U/L Normal 45-117 [facility] Comment on above: Performed By: #### L 500.4050, L100.0100 #### [facility] [address] [place], [address] ALT [Catalytic activity/Vol] 34 U/L Normal 16-61 [facility] Comment on above: Performed By: #### L 500.4050, L100.0100 #### [facility] [address] [place], [address] AST [Catalytic activity/Vol] 19 U/L Normal 15-37 [facility] Comment on above: Performed By: #### L 500.4050, L100.0100 #### [facility] [address] [place], [address] Bilirubin [Mass/Vol] 1.30 mg/dL High 0.20-1.00 [facility] Comment on above: Result Comment: For patients on eltrombopag therapy, use of Dimension [place] TBIL is not recommended. Performed By: #### L 500.4050, L100.0100 #### [facility] [address] [place], [address] BUN/CRE 12.3 RATIO Normal 10-20 [facility] Comment on above: Performed By: #### L 500.4050, L100.0100 #### [facility] [address] [place], [address] CA,Total 8.5 mg/dL Normal 8.5-10.1 [facility] Comment on above: Performed By: #### L 500.4050, L100.0100 #### [facility] [address] [place], [address] Chloride [Moles/Vol] 108 mmol/L High 98-107 [facility] Comment on above: Performed By: #### L 500.4050, L100.0100 #### [facility] [address] [place], [address] CO2 [Moles/Vol] 26.0 mmol/L Normal 21.0-32.0 [facility] Comment on above: Performed By: #### L 500.4050, L100.0100 #### [facility] [address] [place], [address] Creatinine [Mass/Vol] 1.38 mg/dL High 0.70-1.30 [facility] Comment on above: Result Comment: The validity of the calculated GFR GFRAA in patients over 70 years has not been determined. Clinical correlation is essential. Performed By: #### L 500.4050, L100.0100 #### [facility] [address] [place], [address] ECRCL 51.42 ml/min Normal [facility] Comment on above: Performed By: #### L 500.4050, L100.0100 #### [facility] [address] [place], [address] EST GFR - AA 64 mL/min Normal >60 [facility] Comment on above: Result Comment: Afri can Thai GFR Calc Performed By: #### L 500.4050, L100.0100 #### [facility] [address] [place], [address] GAP 4 Low 5-15 [facility] Comment on above: Performed By: #### L 500.4050, L100.0100 #### [facility] [address] [place], [address] GFR/1.73 sq M.predicted among non-blacks MDRD (S/P/Bld) [Vol rate/Area] 53 mL/min/{1.73_m2} Low >60 [facility] Comment on above: Result Comment: Non- GFR Calc Performed By: #### L 500.4050, L100.0100 #### [facility] [address] [place], [address] Globulin (S) [Mass/Vol] 2.8 g/dL Normal 2.2-4.2 [facility] Comment on above: Performed By: #### L 500.4050, L100.0100 #### [facility] [address] [place], [address] Glucose [Mass/Vol] 155 mg/dL High 74-106 [facility] Comment on above: Result Comment: Fast ing Glucose result greater than or equal to 126 mg/dL suggests DIABETES MELLITUS per A.D.A. criteria. Performed By: #### L 500.4050, L100.0100 #### [facility] [address] [place], [address] Potassium [Moles/Vol] 4.2 mmol/L Normal 3.5-5.1 [facility] Comment on above: Performed By: #### L 500.4050, L100.0100 #### [facility] [address] [place], [address] Sodium [Moles/Vol] 138 mmol/L Normal 136-145 [facility] Comment on above: Performed By: #### L 500.4050, L100.0100 #### [facility] [address] [place], [address] T PROT 5.8 g/dL Low 6.4-8.2 [facility] Comment on above: Performed By: #### L 500.4050, L100.0100 #### [facility] [address] [place], [address] Urea nitrogen [Mass/Vol] 17 mg/dL Normal 7-18 [facility] Comment on above: Performed By: #### L 500.4050, L100.0100 #### [facility] [address] [place], [address] Consultation - Cardiologyon 10-13-2023 Consultation - Cardiology [facility] Medical Records Department [address] [place] [address] Consultation - Cardiology 10/13/23 0903 MR#: [id number] Acct: [id number] Name: ERIBERTO RICO Rep #: [id number] : 1945 78 From: Marcin Araujo MD PCP: Dr. Marycarmen Rodriguez, DO Status:ADM EDMUND Location: [place] [address] Assessment Plan Assessment/Plan (1) Unstable angina: PLAN: Patient presents with chest discomfort which is likely noncardiac. He recently had a pharmacologic stress test but did not demonstrate any evidence of ischemia. However due to his persistent symptoms it was felt that he should be evaluated with a coronary angiogram. Risk benefits alternatives have been explained to him he understands and agrees to proceed. Addendum: He underwent a cardiac catheterization which demonstrated patency of his left arterial system as well as his right coronary artery which had a previously placed stents. I would recommend optimizing his medical therapy and discharging him for outpatient follow-up. (2) Presence of stent in coronary artery: PLAN: Patient has a history of a stent in the right coronary artery. This will be reevaluated with the cardiac catheterization. (3) Essential hypertension: PLAN: His blood pressure is under good control at this time I would not recommend that we make any major changes. (4) Hyperlipidemia: QUALIFIERS: Hyperlipidemia type: unspecified Qualified Code(s): E78.5 - Hyperlipidemia, unspecified PLAN: He will continue with aggressive risk factor modification. Thank you for allowing me to participate in the care of your patient. Please don't hesitate to call if any issues arise. HPI Consult Data Date of Consult: 10/13/23 HPI Narrative HPI Narrative: ERIBERTO RICO, is a 78 M who presents to the emergency room with multiple complaints of chest heaviness. He also has had problems with his blood pressure. He says that he has this heaviness with minimal exertion. 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 They have attempted to PCI this multiple times without success. He also has a history of hypertension and hyperlipidemia he underwent a last catheterization in August 2022 underwent successful drug-eluting stent to the proximal right coronary artery for in-stent stenosis. He presented to the emergency room was evaluated and admitted for further evaluation and management. [facility] Medical History Fatigue Syncope Left-sided weakness History of COVID-19 Presence of stent in coronary artery ( 08/31/22) Dyslipidemia Diabetes mellitus 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 Coronary artery disease Angina pectoris Abnormal PFT Chest heaviness Palpitations DEAN (dyspnea on exertion) Dizziness Leg pain Cough Exposure to COVID-19 virus Nonhealing nonsurgical wound with fat layer exposed Laceration without foreign body of scalp, subsequent encounter Acute left-sided weakness Essential hypertension CHF (congestive heart failure) History of melanoma Obesity (BMI 35.0-39.9 without comorbidity) CAD (coronary artery disease) 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.9) COPD (chronic obstructive pulmonary disease) TIA (transient ischemic attack) Obstructive sleep apnea 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, stage 3 Atherosclerotic heart disease [place] coronary artery w/angina pectoris Type 2 diabetes mellitus without complications Hyperlipidemia Obesity Home Medications ???Medication ???Instructions ???Recorded ???Last Taken ???Type aspirin 81 mg tablet,delayed 81 mg PO DAILY@0800 health 01/21/17 10/11/23 History release maintenance mirtazapine 15 mg tablet (Remeron) 15 mg PO QHS sleep 09/21/18 10/11/23 History cyanocobalamin (vitamin B-12) 1,000 mcg PO DAILY vitamin ##0 06/01/19 10/11/23 History 1,000 mcg capsule magnesium oxide 400 mg (241.3 mg 800 mg PO DAILY SUPPLEMENT 08/01/21 10/11/23 History magnesium) tablet potassium chloride 20 mEq 60 meq PO BID supplement 08/01/21 10/11/23 History tablet,extended release(part/cryst) cetirizine 10 mg tablet 10 mg PO DAILY PRN Allergic 09/16/21 10/11/23 History Reaction cholecalciferol (vitamin D3) [address] 09/16/21 10/11/23 History mcg (1,000 unit) tablet fluoxetine 40 mg capsule 80 mg PO DAILY DEPRESSION 90 days 09/16/21 10/11/23 History #180 caps metformin 500 mg tablet 500 mg PO BID DM 08/19/22 10/11/23 History nitroglycerin 0.4 mg sublingual 0.4 mg sublingual Q5-15M PRN CHEST 08/19/22 10/12/23 Rx tablet PAIN #25 tabs isosorbide mononitrate 60 mg 60 mg PO DAILY #30 tabs 10/13/22 10/11/23 Rx tablet,extended release 24 hr atorvastatin 40 mg tablet 40 mg PO QHS CHOLESTEROL #90 tabs 11/04/22 10/11/23 Rx pantoprazole 40 mg tabl (more content not included)... Normal [facility] Discharge Instructionon 10-[address] [facility] Records Department [address] [place] [address] Instructions for Home/Discharge Instructions 10/13/23 1156 MR#: [id number] Acct: [id number] Name: ERIBERTO RICO Rep #: [id number] : 1945 78 From: Marycarmen Marlow DO PCP: Dr. Marycarmen Rodriguez, DO Status:ADM EDMUND Discharge Instructions Diet Discharge Diet: 1800 Calorie Control Diet Activity Discharge Activity: Return to Normal Activity Weight Bearing Status: Full weight bearing Follow Up Care Test Results: Test results from this visit will be discussed in further detail at your follow-up appointment, if applicable. Discharge Plan Admission Admit Date/Time: 10/12/23 17:23 Primary Reason for Your Visit: chest pain Attending Provider: Marycarmen Marlow Primary Care Provider: Marycarmen Rodriguez Consulting Providers: Marcin Araujo; Jw Rock Discharge Orders/Prescriptions Prescriptions: Continued fluoxetine 40 mg capsule 80 mg PO DAILY 90 Days Qty: 180 magnesium oxide 400 mg (241.3 mg magnesium) tablet 800 mg PO DAILY potassium chloride 20 mEq tablet,ER particles/crystals 60 meq PO BID cetirizine 10 mg tablet 10 mg PO DAILY PRN (Reason: Allergic Reaction) cholecalciferol (vitamin D3) 25 mcg (1,000 unit) tablet 25 mcg PO DAILY nitroglycerin 0.4 mg tablet, sublingual 0.4 mg SUBLINGUAL Q5-15M PRN (Reason: CHEST PAIN) Qty: 25 3RF metformin 500 mg tablet 500 mg PO BID isosorbide mononitrate 60 mg tablet extended release 24 hr 60 mg PO DAILY Qty: 30 11RF pantoprazole 40 mg tablet,delayed release (DR/EC) 40 mg PO DAILY Qty: 90 3RF carvedilol [Coreg] 6.25 mg tablet 6.25 mg PO BID Qty: 60 11RF Rx Instructions: must administer with a meal/food aspirin 81 MG tablet 81 mg PO DAILY@0800 cyanocobalamin (vitamin B-12) 1,000 MCG capsule 1,000 mcg PO DAILY Qty: 0 Jardiance 25 mg tablet 25 mg PO DAILY acetaminophen 325 MG tablet 650 mg PO Q6H PRN (Reason: Pain -02/09) spironolactone 50 mg tablet 50 mg PO DAILY mirtazapine [Remeron] 15 mg tablet 15 mg PO QHS atorvastatin 40 mg tablet 40 mg PO QHS Qty: 90 3RF furosemide 40 mg tablet 80 mg PO DAILY Qty: 180 3RF Patient Comments: Hold if systolic blood pressure less than 120 mmHg clopidogrel 75 mg tablet 75 mg PO DAILY Qty: 90 3RF amlodipine 5 mg tablet 5 mg PO DAILY Qty: 30 11RF losartan 100 mg tablet 100 mg PO DAILY Qty: 90 3RF ranolazine 500 mg tablet extended release 12 hr 500 mg PO BID Qty: 60 11RF Referrals / Follow Up: Marycarmen Rodriguez DO [Primary Care Provider] - Disposition Disposition (needs filled in before D/C Order can be placed): Home, Self Care 10/13/23 1159 Marycarmen Marlow DO CC: Dr. Marcin Araujo MD; Dr. Jw Rock MD; Dr. Marycarmen Rodriguez DO Signed Normal [facility] Partial Thromboplast Timeon 10-13-2023 aPTT Coag (Bld) [Time] 107.6 s Invalid Interpretation Code 24.1-36.2 [facility] Comment on above: Result Comment: CRIT ICAL VALUE VERIFIED. CALLED TO [facility] 10/13/23 0523 Erica Prather. RESULTS READ BACK BY SAME. Performed By: #### L 300.4310 #### [facility] [address] [place], [address] 12 Lead EKGon 10-12-2023 12 Lead EKG [facility] Services [address] [place] [address] 12 Lead EKG 10/13/23 0541 MR#: [id number] Acct: [id number] Name: ERIBERTO RICO Rep #: [id number] : 1945 78 From: George Ríos MD Attending Dr: Dr. Marycarmen Marlow DO Status: A DM EDMUND Ordering Dr: Jw Rock MD Date: 10/12/23 Location: U Sex: M C Admitted: 10/12/23 Test Reason : AM EKG Blood Pressure : / mmHG Vent. Rate : 052 BPM Atrial Rate : 052 BPM P-R Int : 188 ms QRS Dur : 092 ms QT Int : 466 ms P-R-T Axes : 066 078 052 degrees QTc Int : 433 ms Sinus bradycardia Otherwise normal ECG When compared with ECG of 12-OCT-2023 19:10, MANUAL COMPARISON REQUIRED, DATA IS UNCONFIRMED Confirmed by George Ríos ([id number]), proposal editor ERICA SCOTT ([id number]) on 10/13/2023 9:07:14 AM Referred By: Confirmed By:George Ríos 10/13/23 0907 Date eGorge Ríos MD CC: Dr. Jw Rock MD; Dr. Marycarmen Rodriguez DO; Dr. Marycarmen Marlow DO Signed Normal [facility] 12 Lead EKG [facility] [address] [place] [address] 12 Lead EKG 10/12/23 1326 MR#: [id number] Acct: [id number] Name: ERIBERTO RICO Rep #: [id number] : 1945 78 From: George Ríos MD Attending Dr: Dr. Marycarmen Marlow DO Status: A DM EDMUND Ordering Dr: Rocael Zavala MD Date: 10/12/23 Location: [facility] Sex: M C Admitted: 10/12/23 Test Reason : CP Blood Pressure : / mmHG Vent. Rate : 058 BPM Atrial Rate : 058 BPM P-R Int : 178 ms QRS Dur : 092 ms QT Int : 442 ms P-R-T Axes : 071 065 053 degrees QTc Int : 433 ms Sinus bradycardia Otherwise normal ECG Confirmed by George Ríos ([id number]), proposal editor ERICA SCOTT ([id number]) on 10/13/2023 8:53:42 AM Referred By: Confirmed By:George Ríos 10/13/23 0853 Date George Ríos MD CC: Dr. Rocael Zavala MD; Dr. Marycarmen Rodriguez DO; Dr. Marycarmen Marlow DO Signed Normal [facility] Basic Metabolic Profile (BMP )on 10-12-2023 BUN/CRE 12.5 RATIO Normal 10-20 [facility] Comment on above: Order Comment: 1Y Performed By: #### L 501.4020 #### [facility] [address] [place], [address] CA,Total 9.1 mg/dL Normal 8.5-10.1 [facility] Comment on above: Order Comment: 1Y Performed By: #### L 501.4020 #### [facility] [address] [place], [address] Chloride [Moles/Vol] 106 mmol/L Normal 98-107 [facility] Comment on above: Order Comment: 1Y Performed By: #### L 501.4020 #### [facility] [address] [place], [address] CO2 [Moles/Vol] 22.0 mmol/L Normal 21.0-32.0 [facility] Comment on above: Order Comment: 1Y Performed By: #### L 501.4020 #### [facility] [address] [place], [address] Creatinine [Mass/Vol] 1.36 mg/dL High 0.70-1.30 [facility] Comment on above: Order Comment: 1Y Result Comment: The validity of the calculated GFR GFRAA in patients over 70 years has not been determined. Clinical correlation is essential. Performed By: #### L 501.4020 #### [facility] [address] [place], [address] ECRCL 52.60 ml/min Normal [facility] Comment on above: Order Comment: 1Y Performed By: #### L 501.4020 #### [facility] [address] [place], [address] EST GFR - AA 65 mL/min Normal >60 [facility] Comment on above: Order Comment: 1Y Result Comment: Afri can Thai GFR Calc Performed By: #### L 501.4020 #### [facility] [address] [place], [address] GAP 6 Normal 5-15 [facility] Comment on above: Order Comment: 1Y Performed By: #### L 501.4020 #### [facility] [address] [place], [address] GFR/1.73 sq M.predicted among non-blacks MDRD (S/P/Bld) [Vol rate/Area] 54 mL/min/{1.73_m2} Low >60 [facility] Comment on above: Order Comment: 1Y Result Comment: Non- GFR Calc Performed By: #### L 501.4020 #### [facility] [address] [place], [address] Glucose [Mass/Vol] 166 mg/dL High 74-106 [facility] Comment on above: Order Comment: 1Y Result Comment: Fast ing Glucose result greater than or equal to 126 mg/dL suggests DIABETES MELLITUS per A.D.A. criteria. Performed By: #### L 501.4020 #### [facility] [address] [place], [address] Potassium [Moles/Vol] 4.9 mmol/L Normal 3.5-5.1 [facility] Comment on above: Order Comment: 1Y Performed By: #### L 501.4020 #### [facility] [address] [place], [address] Sodium [Moles/Vol] 134 mmol/L Low 136-145 [facility] Comment on above: Order Comment: 1Y Performed By: #### L 501.4020 #### [facility] [address] [place], [address] Urea nitrogen [Mass/Vol] 17 mg/dL Normal 7-18 [facility] Comment on above: Order Comment: 1Y Performed By: #### L 501.4020 #### [facility] [address] [place], [address] CBC W/Diff, Automatedon 06- Absolute Lymph 1.05 X10 3/uL Normal 0.83-4.51 [facility] Comment on above: Performed By: #### L 501.4020 #### [facility] [address] [place], [address] Absolute Neut 7.3 X10 3/uL Normal 2.0-7.7 [facility] Comment on above: Performed By: #### L 501.4020 #### [facility] [address] [place], [address] Basophils/100 WBC (Bld) 0.3 % Normal 0-1 [facility] Comment on above: Performed By: #### L 501.4020 #### [facility] [address] [place], [address] Eosinophils/100 WBC (Bld) 0.8 % Normal 0-5 [facility] Comment on above: Performed By: #### L 501.4020 #### [facility] [address] [place], [address] Erythrocyte distribution width (RBC) [Ratio] 14.2 % Normal 11.6-14.6 [facility] Comment on above: Performed By: #### L 501.4020 #### [facility] [address] [place], [address] Hematocrit (Bld) [Volume fraction] 49.3 % Normal 40-54 [facility] Comment on above: Performed By: #### L 501.4020 #### [facility] [address] [place], [address] Hemoglobin (Bld) [Mass/Vol] 15.6 g/dL Normal 13.0-16.5 [facility] Comment on above: Performed By: #### L 501.4020 #### [facility] Laboratory [address] [place], [address] IG% 0.400 Normal 0.0-0.9 [facility] Comment on above: Result Comment: IG% - Immature Granulocytes (promyelocytes, myelocytes and metamyelocytes) > 1% indicates that a LEFT SHIFT is Present. Performed By: #### L [id number] #### [facility] [address] [place], [address] Lymphocytes/100 WBC (Bld) 11.4 % Low 19-41 [facility] Comment on above: Performed By: #### L [id number] #### [facility] [address] [place], [address] MCH (RBC) [Entitic mass] 28.2 pg Normal 27.0-32.0 [facility] Comment on above: Performed By: #### L [id number] #### [facility] [address] [place], [address] MCHC (RBC) [Mass/Vol] 31.6 g/dL Low 32-36 [facility] Comment on above: Performed By: #### L [id number] #### [facility] [address] [place], [address] MCV (RBC) [Entitic vol] 89.2 fL Normal 80-94 [facility] Comment on above: Performed By: #### L [id number] #### [facility] [address] [place], [address] Monocytes/100 WBC (Bld) 8.0 % Normal 0-10 [facility] Comment on above: Performed By: #### L [id number] #### [facility] [address] [place], [address] Neutrophils/100 WBC (Bld) 79.1 % High 47-70 [facility] Comment on above: Performed By: #### L [id number] #### [facility] [address] [place], [address] Nucleated RBC (Bld) [#/Vol] 0 10*3/uL Normal 0-5 [facility] Comment on above: Performed By: #### L [id number] #### [facility] [address] [place], [address] Platelet mean volume (Bld) [Entitic vol] 12.7 fL High 6.2-12.0 [facility] Comment on above: Performed By: #### L [id number] #### [facility] [address] [place], [address] Platelets (Bld) [#/Vol] 137 10*3/uL Low 150-450 [facility] Comment on above: Performed By: #### L [id number] #### [facility] [address] [place], [address] RBC (Bld) [#/Vol] 5.53 10*6/uL Normal 4.6-6.2 [facility] Comment on above: Performed By: #### L [id number] #### [facility] [address] [place], [address] RDW SD 46.7 fl High 35.1-43.9 [facility] Comment on above: Performed By: #### L [id number] #### [facility] [address] [place], [address] WBC (Bld) [#/Vol] 9.2 10*3/uL Normal 4.4-11.0 [facility] Comment on above: Performed By: #### L [id number] #### [facility] [address] [place], [address] Chest 1 View (Portable)on Chest 1 View (Portable) [facility] Imaging Services [address] [place] [address] Chest 1 View (Portable) MR#: [id number] Acct: [id number] Name: ERIBERTO RICO Rep #: [id number] : 1945 M 78 From: Constantin fajardo MD PCP: Dr. Marycarmen Rodriguez DO Status: REG ER Study: Chest 1 View (Portable) Date of Exam: 10/12/23 Exam# [id number] Ordering Dr: Rocael Zavala MD [id number] STUDY: X-RAY CHEST REASON FOR EXAM: Male, 78 years old. Chest pain TECHNIQUE: Single AP portable view of the chest. COMPARISON: Comparison is made with prior study dated September 17, 2022. FINDINGS: EKG electrodes are seen. Multiple healed right rib fractures with deformity and underlying pleural thickening. Stable mild elevation of the right hemidiaphragm. The lungs are clear. Normal size heart. Normal mediastinum and melanie. Normal visualized pulmonary arteries. There is atherosclerotic calcification of the aortic arch with tortuosity. There are diffuse degenerative changes of the visualized thoracic spine. Normal visualized ribs, clavicles, and shoulders. There is no demonstrated abnormality of the visualized soft tissue structures of the upper abdomen. RAD/Chest 1 View (Portable) IMPRESSION: There is evidence of multiple healed right-sided rib fractures with underlying pleural thickening. No acute infiltrate is seen. Electronically Signed: Constantin Lee MD at 13:51 EDT , CC: Dr. Rocael Zavala MD; Dr. Marycarmen Rodriguez DO Lumber Sticker: Signed Normal [facility] Emergency Department Summary on 10-12-[address] [facility] Records Department [address] [place] [place] [address] Emergency Department Summary 10/12/23 MR#: [id number] Acct: [id number] Name: ERIBERTO RICO Rep #: [id number] : 1945 78 From: Rocael Zavala MD PCP: Dr. Marycarmen Rodriguez, DO Status:REG ER Location: ED HPI History of Present Illness Chief Complaint: Chest Pain Informant: patient and family Narrative Narrative: 78-year-old male started having chest discomfort 2-3 hours ago. He has been having this intermittently for the past month, today more persistent and worse. Occurred while he was sitting at rest. He states that switched sides from his left side to his right side now back to his left, combination of burning, sharp, dull, heavy pain. He states now it is starting to be bothersome in his left arm and his left leg. He took 2 nitroglycerin earlier which seemed to help and now his pain is mild but still present. He was given 4 baby aspirin by EMS. He had a recent stress test that was negative but states he has 8 stents and has had negative stress tests and needed stents in the past. We called his cardiology office advised that he come to the ER. [facility] Medical History Fatigue Syncope Left-sided weakness History of COVID-19 Presence of stent in coronary artery ( 08/31/22) Dyslipidemia Diabetes mellitus 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 Coronary artery disease Angina pectoris Abnormal PFT Chest heaviness Palpitations DEAN (dyspnea on exertion) Dizziness Leg pain Cough Exposure to COVID-19 virus Nonhealing nonsurgical wound with fat layer exposed Laceration without foreign body of scalp, subsequent encounter Acute left-sided weakness Essential hypertension CHF (congestive heart failure) History of melanoma Obesity (BMI 35.0-39.9 without comorbidity) CAD (coronary artery disease) 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.9) COPD (chronic obstructive pulmonary disease) TIA (transient ischemic attack) Obstructive sleep apnea 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, stage 3 Atherosclerotic heart disease [place] coronary artery w/angina pectoris Type 2 diabetes mellitus without complications Hyperlipidemia Obesity Home Medications ???Medication ???Instructions ???Recorded ???Last Taken ???Type aspirin 81 mg tablet,delayed 81 mg PO DAILY@0800 health 01/21/17 12/21/22 History release maintenance mirtazapine 15 mg tablet (Remeron) 15 mg PO QHS sleep 09/21/18 12/19/19 History cyanocobalamin (vitamin B-12) 1,000 mcg PO DAILY vitamin ##0 06/01/19 12/19/19 History 1,000 mcg capsule acetaminophen 325 mg tablet 650 mg (2 x 325 mg) PO Q6H PRN PRN 01/03/20 Unknown Rx Pain -02/09 magnesium oxide 400 mg (241.3 mg 800 mg PO DAILY SUPPLEMENT 08/01/21 Unknown History magnesium) tablet potassium chloride 20 mEq 60 meq PO BID supplement 08/01/21 Unknown History tablet,extended release(part/cryst) cetirizine 10 mg tablet 10 mg PO DAILY PRN Allergic 09/16/21 Unknown History Reaction cholecalciferol (vitamin D3) [address] 09/16/21 Unknown History mcg (1,000 unit) tablet fluoxetine 40 mg capsule 80 mg PO DAILY DEPRESSION 90 days 09/16/21 Unknown History #180 caps glimepiride 4 mg tablet [address] 09/16/21 Unknown History metformin 500 mg tablet 500 mg PO BID DM 08/19/22 12/20/22 History nitroglycerin 0.4 mg sublingual 0.4 mg sublingual Q5-15M PRN CHEST 08/19/22 Unknown Rx tablet PAIN #25 tabs meclizine 25 mg tablet 25 mg PO TID PRN PRN vertiginous 09/21/22 Unknown Rx symptoms #0 tabs nutrition tx glu 120 ml PO TIDCM #0 mL 09/21/22 Unknown Rx intol,lac-free,soy-f iber 0.06 gram-1.2 kcal/mL liquid (Glucerna 1.2 Ashwin) isosorbide mononitrate 60 mg 60 mg PO DAILY #30 tabs 10/13/22 Unknown Rx tablet,extended release 24 hr atorvastatin 40 mg tablet 40 mg PO QHS CHOLESTEROL #90 tabs 11/04/22 Unknown Rx empagliflozin 10 mg tablet 10 mg PO DAILY 12/15/22 12/21/22 History (Jardiance) pantoprazole 40 mg tablet,delayed 40 mg PO DAILY GERD #90 tabs 12/15/22 Unknown Rx release spironolactone 25 mg tablet 25 mg PO DAILY fluid #90 tabs 01/06/23 Unknown Rx furosemide 40 mg tablet 80 mg (2 x 40 mg) PO DAILY 03/24/23 Unknown Rx diuretic #180 tabs clopidogrel 75 mg tablet [address] #90 tabs 03/06/24 Unknown Rx carvedilol 6.25 mg tablet (Coreg) 6.25 mg PO BID #60 tabs 09/16/23 Unknown Rx amlodipine 5 mg tablet 5 mg PO DAILY #30 tabs 09/24/23 Unknown Rx losartan 100 mg tablet 100 mg PO DAILY #90 tabs 10/01/23 Unknown Rx ranolazine 500 mg tablet,extended 500 mg PO BID take with food #60 10/01/23 Unknown Rx release,12 hr tabs Allergy/AdvReac Type Severity Reaction Status Date / Time No Known Allergies Allergy Verified 09/16/23 09:25 Family History ... Normal [facility] L501.4020on 10-12-2023 TROPONIN-I HS 6 pg/mL Normal 3.0-78.0 [facility] Comment on above: Result Comment: Plekira fletcher Note: New Test Units and Gender Specific Reference Ranges. For more information see Policy Stat Procedure [place] High Sensitivity Troponin (TNIH) and attachments. Performed By: #### L [id number] #### [facility] [address] [place], [place], [id number] TROPONIN-I HS 8 pg/mL Normal 3.0-78.0 [facility] Comment on above: Order Comment: 'TROP ' Serial specimen #1, #2 or #3: 3 Result Comment: Noah fletcher Note: New Test Units and Gender Specific Reference Ranges. For more information see Policy Stat Procedure [place] High Sensitivity Troponin (TNIH) and attachments. Performed By: #### L [id number] #### [facility] [address] [place], [address] L501.5425on 10-12-2023 TROPONIN-I HS 5 pg/mL Normal 3.0-78.0 [facility] Comment on above: Order Comment: 1Y Result Comment: Plekira fletcher Note: New Test Units and Gender Specific Reference Ranges. For more information see Policy Stat Procedure [place] High Sensitivity Troponin (TNIH) and attachments. Performed By: #### L [id number] #### [facility] [address] [place], [address] Partial Thromboplast Timeon 10-12-2023 aPTT Coag (Bld) [Time] 52.0 s High 24.1-36.2 [facility] Comment on above: Performed By: #### L [id number] #### [facility] [address] [place], [address] aPTT Coag (Bld) [Time] 29.5 s Normal 24.1-36.2 [facility] Comment on above: Performed By: #### L [id number] #### [facility] [address] [place], [address] Prothrombin Time w/INRon INR Coag (PPP) [Relative time] 1.0 {INR} Normal [facility] Comment on above: Performed By: #### L [id number] #### [facility] [address] [place], [address] PT Coag (PPP) [Time] 13.6 s Normal 11.7-14.9 [facility] Comment on above: Performed By: #### L [id number] #### [facility] [address] [place], [address] Basophil percentageOrdered B y: Marycarmen Rodriguez on 05-07-2023 Chloride [Moles/Vol] 103 mmol/L 98-107 [facility] Glucose [Mass/Vol] 172 mg/dL 74-106 [facility] Comment on above: Fasting Glucose resu lt greater than or equal to 126 mg/dL suggests DIABETES MELLITUS per A.D.A. criteria. Potassium [Moles/Vol] 3.7 mmol/L 3.5-5.1 [facility] Sodium [Moles/Vol] 138 mmol/L 136-145 [facility] Laboratory - Chemistry and C hemistry - challengeOrdered By: Marycarmen Rodriguez on 05-07-2023 CO2 [Moles/Vol] 27.0 mmol/L 21.0-32.0 [facility] Urea nitrogen/Creatinine [Mass ratio] 13.9 mg/mg 10-20 [facility] No Panel InformationOrdered By: Marycarmen Rodriguez on 05-07-2023 Estimated GFR (MDRD) Amer 74 mL/min >60 [facility] Comment on above: GFR Calc Estimated GFR (MDRD) Non-Af Amer 61 mL/min >60 [facility] Comment on above: Non- GFR Calc Serum or plasma calcium francine urement (mass/volume)Ordered By: Marycarmen Rodriguez on 05-07-2023 Calcium [Mass/Vol] 8.6 mg/dL 8.5-10.1 [facility] Serum or plasma creatinine m easurement (mass/volume)Ordered By: Marycarmen Rodriguez on 05-07-2023 Creatinine [Mass/Vol] 1.22 mg/dL 0.70-1.30 [facility] Comment on above: The validity of the calculated GFR & GFRAA in patients over 70 years has not been determined. Clinical correlation is essential. Serum or plasma urea nitroge n measurement (mass/volume)Ordered By: Marycarmen Rodriguez on 05-07-2023 Urea nitrogen [Mass/Vol] 17 mg/dL 7-18 [facility] Thin prep Papanicolaou smear with manual screeningOrdered By: Marycarmen Rodriguez on 05-07-2023 Thin prep Papanicolaou smear with manual screening 8 5-15 [facility] Basophil percentageOrdered B y: Jose Hay on 12-15-2022 Chloride [Moles/Vol] 110 mmol/L 98-107 [facility] Glucose [Mass/Vol] 121 mg/dL 74-106 [facility] Comment on above: Fasting Glucose resu lt from 100 to 125 mg/dL suggests IMPAIRED HOMEOSTASIS per A.D.A. criteria. Potassium [Moles/Vol] 4.0 mmol/L 3.5-5.1 [facility] Sodium [Moles/Vol] 139 mmol/L 136-145 [facility] WBC (Bld) [#/Vol] 7.3 10*3/uL 4.4-11.0 [facility] Blood erythrocytes count (nu mber/volume)Ordered By: Jose Hay on 12-15-2022 RBC (Bld) [#/Vol] 5.18 10*6/uL 4.6-6.2 [facility] Blood hemoglobin measurement (mass/volume)Ordered By: Jose Hay on 12-15-2022 Hemoglobin (Bld) [Mass/Vol] 15.2 g/dL 13.0-16.5 [facility] Blood platelet mean volumeOr dered By: Jose Hay on 12-15-2022 Platelet mean volume (Bld) [Entitic vol] 12.2 fL 6.2-12.0 [facility] Determination of erythrocyte mean corpuscular volume (MCV)Ordered By: Jose Hay on 12-15-2022 MCV (RBC) [Entitic vol] 90.2 fL 80-94 [facility] Hematocrit Auto (Bld) [Volum e fraction]Ordered By: Jose Hay on 12-15-2022 Hematocrit (Bld) [Volume fraction] 46.7 % 40-54 [facility] - Chemistry and C hemistry - challengeOrdered By: Jose Hay on 12-15-2022 CO2 [Moles/Vol] 23.0 mmol/L 21.0-32.0 [facility] Natriuretic peptide B (Bld) [Mass/Vol] 38.1 pg/mL 0-100 [facility] Urea nitrogen/Creatinine [Mass ratio] 13.5 mg/mg 10-20 [facility] - Hematology and Cell countsOrdered By: Jose Hay on 12-15-2022 Erythrocyte distribution width (RBC) [Entitic vol] 47.5 fL 35.1-43.9 [facility] Erythrocyte distribution width (RBC) [Ratio] 14.4 % 11.6-14.6 [facility] MCH (RBC) [Entitic mass] 29.3 pg 27.0-32.0 [facility] MCHC Auto (RBC) [Mass/Vol]Or dered By: Jose Hay on 12-15-2022 MCHC (RBC) [Mass/Vol] 32.5 g/dL 32-36 [facility] No Panel InformationOrdered By: Jose Hay on 12-15-2022 Estimated GFR (MDRD) Amer 83 mL/min >60 [facility] Comment on above: GFR Calc Estimated GFR (MDRD) Non-Af Amer 68 mL/min >60 [facility] Comment on above: Non- GFR Calc Platelets bldOrdered By: Emmanuel Hay on 12-15-2022 Platelets (Bld) [#/Vol] 143 10*3/uL 150-450 [facility] Serum or plasma calcium francine urement (mass/volume)Ordered By: Jose Hay on 12-15-2022 Calcium [Mass/Vol] 8.8 mg/dL 8.5-10.1 [facility] Serum or plasma creatinine m easurement (mass/volume)Ordered By: Jose Hay on 12-15-2022 Creatinine [Mass/Vol] 1.11 mg/dL 0.70-1.30 [facility] Comment on above: The validity of the calculated GFR & GFRAA in patients over 70 years has not been determined. Clinical correlation is essential. Serum or plasma urea nitroge n measurement (mass/volume)Ordered By: Jose Hay on 12-15-2022 Urea nitrogen [Mass/Vol] 15 mg/dL 7-18 [facility] Thin prep Papanicolaou smear with manual screeningOrdered By: Jose Hay on 12-15-2022 Thin prep Papanicolaou smear with manual screening 6 -15 [facility] Absolute lymphocyte countOrd ered By: Luz Elena Mckeon on 10-13-2022 Lymphocytes Auto (Unsp spec) [#/Vol] 1.21 10*3/uL 0.83-4.51 [facility] Basophil percentageOrdered B y: Luz Elena Mckeon on 10-13-2022 Basophils/100 WBC (Bld) 0.5 % 0-1 [facility] Chloride [Moles/Vol] 106 mmol/L 98-107 [facility] Eosinophils/100 WBC (Bld) 1.4 % 0-5 [facility] Glucose [Mass/Vol] 277 mg/dL 74-106 [facility] Comment on above: Glucose result great er than or equal to 200 mg/dLsuggests DIABETES MELLITUS per A.D.A. criteria. Neutrophils (Bld) [#/Vol] 4.0 10*3/uL 2.0-7.7 [facility] Neutrophils/100 WBC (Bld) 68.5 % 47-70 [facility] Potassium [Moles/Vol] 4.1 mmol/L 3.5-5.1 [facility] Sodium [Moles/Vol] 139 mmol/L 136-145 [facility] WBC (Bld) [#/Vol] 5.8 10*3/uL 4.4-11.0 [facility] Blood erythrocytes count (nu mber/volume)Ordered By: Luz Elena Mckeon on 10-13-2022 RBC (Bld) [#/Vol] 4.66 10*6/uL 4.6-6.2 [facility] Blood hemoglobin measurement (mass/volume)Ordered By: Luz Elena Mckeon on 10-13-2022 Hemoglobin (Bld) [Mass/Vol] 13.6 g/dL 13.0-16.5 [facility] Blood lymphocytes/100 leukoc ytesOrdered By: Luz Elena Mckeon on 10-13-2022 Lymphocytes/100 WBC (Bld) 20.7 % 19-41 [facility] Blood monocytes/100 leukocyt esOrdered By: Luz Elena Mckeon on 10-13-2022 Monocytes/100 WBC (Bld) 8.6 % 0-10 [facility] Blood platelet mean volumeOr dered By: Luz Elena Mckeon on 10-13-2022 Platelet mean volume (Bld) [Entitic vol] 12.6 fL 6.2-12.0 [facility] Determination of erythrocyte mean corpuscular volume (MCV)Ordered By: Luz Elena Mckeon on 10-13-2022 MCV (RBC) [Entitic vol] 89.5 fL 80-94 [facility] Hematocrit Auto (Bld) [Volum e fraction]Ordered By: Luz Elena Mckeon on 10-13-2022 Hematocrit (Bld) [Volume fraction] 41.7 % 40-54 [facility] - Chemistry and C hemistry - challengeOrdered By: Luz Elena Mckeon on 10-13-2022 CO2 [Moles/Vol] 27.0 mmol/L 21.0-32.0 [facility] Free T4 [Mass/Vol] 0.77 ng/dL 0.76-1.46 [facility] Magnesium [Mass/Vol] 2.1 mg/dL 1.6-2.6 [facility] Natriuretic peptide B (Bld) [Mass/Vol] 47.2 pg/mL 0-100 [facility] Urea nitrogen/Creatinine [Mass ratio] 17.2 mg/mg 10-20 [facility] - Hematology and Cell countsOrdered By: Luz Elena Mckeon on 10-13-2022 Erythrocyte distribution width (RBC) [Entitic vol] 46.1 fL 35.1-43.9 [facility] Erythrocyte distribution width (RBC) [Ratio] 14.1 % 11.6-14.6 [facility] Immature granulocytes/100 WBC (Bld) 0.300 % 0.0-0.9 [facility] Comment on above: IG% - Immature Granu locytes (promyelocytes, myelocytes and metamyelocytes) > 1% indicates that a LEFT SHIFT is Present. MCH (RBC) [Entitic mass] 29.2 pg 27.0-32.0 [facility] Nucleated RBC/100 WBC (Bld) [Ratio] 0 % 0-5 [facility] MCHC Auto (RBC) [Mass/Vol]Or dered By: Luz Elena Mckeon on 10-13-2022 MCHC (RBC) [Mass/Vol] 32.6 g/dL 32-36 [facility] No Panel InformationOrdered By: Luz Elena Mckeon on 10-13-2022 Estimated GFR (MDRD) Amer 61 mL/min >60 [facility] Comment on above: GFR Calc Estimated GFR (MDRD) Non-Af Amer 50 mL/min >60 [facility] Comment on above: Non- GFR Calc Free Triiodothyronine (T3) pg/dL 2.7 pg/mL 2.18-3.98 [facility] Thyroid Stimulating Hormone (TSH) 4.12 uIU/mL 0.358-3.74 [facility] Platelets bldOrdered By: Loco Mckeon on 10-13-2022 Platelets (Bld) [#/Vol] 126 10*3/uL 150-450 [facility] Serum or plasma calcium francine urement (mass/volume)Ordered By: Luz Elena Mckeon on 10-13-2022 Calcium [Mass/Vol] 8.5 mg/dL 8.5-10.1 [facility] Serum or plasma creatinine m easurement (mass/volume)Ordered By: Luz Elena Mckeon on 10-13-2022 Creatinine [Mass/Vol] 1.45 mg/dL 0.70-1.30 [facility] Comment on above: The validity of the calculated GFR & GFRAA in patients over 70 years has not been determined. Clinical correlation is essential. Serum or plasma urea nitroge n measurement (mass/volume)Ordered By: Luz Elena Mckeon on 10-13-2022 Urea nitrogen [Mass/Vol] 25 mg/dL 7-18 [facility] Thin prep Papanicolaou smear with manual screeningOrdered By: Luz Elena Mckeon on 10-13-2022 Thin prep Papanicolaou smear with manual screening 6 5-15 [facility] COVID-19 virus antigen assay Ordered By: Shaan Santos on 09-21-2022 SARS-CoV-2 (COVID-19) Ag IA.rapid Ql (Resp) [facility] COVID-19 virus antigen assay Ordered By: Dr. Santos on 09-21-2022 SARS-CoV-2 (COVID-19) Ag IA.rapid Ql (Resp) [facility] Glucose Glucometer (BldC) [M ass/Vol]Ordered By: Dr. Santos on 09-21-2022 Glucose [Mass/Vol] 193 mg/dL 74-106 [facility] Comment on above: MANAGEMENT OF PATIEN T CARE PER NURSING PROTOCOL Absolute lymphocyte countOrd ered By: Dr. Leo on 09-18-2022 Lymphocytes Auto (Unsp spec) [#/Vol] 1.83 10*3/uL 0.83-4.51 [facility] Basophil percentageOrdered B y: Dr. Leo on 09-18-2022 Basophils/100 WBC (Bld) 0.3 % 0-1 [facility] Bilirubin [Mass/Vol] 1.20 mg/dL 0.20-1.00 [facility] Comment on above: For patients on eltr ombopag therapy, use of Dimension [place] TBIL is not recommended. Chloride [Moles/Vol] 108 mmol/L 98-107 [facility] Cholesterol [Mass/Vol] 114 mg/dL <200 [facility] Comment on above: <200 mg/dL Desirable 200-240 mg/dL Borderline >240 mg/dL High Risk Eosinophils/100 WBC (Bld) 2.0 % 0-5 [facility] Glucose [Mass/Vol] 87 mg/dL 74-106 [facility] Neutrophils (Bld) [#/Vol] 4.3 10*3/uL 2.0-7.7 [facility] Neutrophils/100 WBC (Bld) 60.9 % 47-70 [facility] Potassium [Moles/Vol] 3.5 mmol/L 3.5-5.1 [facility] Protein [Mass/Vol] 5.9 g/dL 6.4-8.2 [facility] Sodium [Moles/Vol] 142 mmol/L 136-145 [facility] Triglyceride [Mass/Vol] 174 mg/dL <199 [facility] Comment on above: The drugs N-Acetylcy steine and Metamizole may falsely depress this assay.Serum Triglycerides Reference Interval Normal <150 mg/dL Borderline high 150 - 199 mg/dL High 200 - 499 mg/dL Very High > or = 500 mg/dL WBC (Bld) [#/Vol] 7.0 10*3/uL 4.4-11.0 [facility] Blood erythrocytes count (nu mber/volume)Ordered By: Dr. Leo on 09-18-2022 RBC (Bld) [#/Vol] 4.64 10*6/uL 4.6-6.2 [facility] Blood hemoglobin measurement (mass/volume)Ordered By: Dr. Leo on 09-18-2022 Hemoglobin (Bld) [Mass/Vol] 13.2 g/dL 13.0-16.5 [facility] Blood lymphocytes/100 leukoc ytesOrdered By: Dr. Leo on 09-18-2022 Lymphocytes/100 WBC (Bld) 26.1 % 19-41 [facility] Blood monocytes/100 leukocyt esOrdered By: Dr. Leo on 09-18-2022 Monocytes/100 WBC (Bld) 10.4 % 0-10 [facility] Blood platelet mean volumeOr dered By: Dr. Leo on 09-18-2022 Platelet mean volume (Bld) [Entitic vol] 12.3 fL 6.2-12.0 [facility] Determination of erythrocyte mean corpuscular volume (MCV)Ordered By: Dr. Leo on 09-18-2022 MCV (RBC) [Entitic vol] 90.1 fL 80-94 [facility] Hematocrit Auto (Bld) [Volum e fraction]Ordered By: Dr. Leo on 09-18-2022 Hematocrit (Bld) [Volume fraction] 41.8 % 40-54 [facility] - Chemistry and C hemistry - challengeOrdered By: Dr. Leo on 09-18-2022 ALP [Catalytic activity/Vol] 113 U/L 45-117 [facility] ALT [Catalytic activity/Vol] 31 U/L 16-61 [facility] CO2 [Moles/Vol] 26.0 mmol/L 21.0-32.0 [facility] Globulin (S) [Mass/Vol] 3.0 g/dL 2.2-4.2 [facility] Urea nitrogen/Creatinine [Mass ratio] 13.4 mg/mg 10-20 [facility] - Hematology and Cell countsOrdered By: Dr. Leo on 09-18-2022 Erythrocyte distribution width (RBC) [Entitic vol] 46.9 fL 35.1-43.9 [facility] Erythrocyte distribution width (RBC) [Ratio] 14.4 % 11.6-14.6 [facility] Immature granulocytes/100 WBC (Bld) 0.300 % 0.0-0.9 [facility] Comment on above: IG% - Immature Granu locytes (promyelocytes, myelocytes and metamyelocytes) > 1% indicates that a LEFT SHIFT is Present. MCH (RBC) [Entitic mass] 28.4 pg 27.0-32.0 [facility] Nucleated RBC/100 WBC (Bld) [Ratio] 0 % 0-5 [facility] MCHC Auto (RBC) [Mass/Vol]Or dered By: Dr. Leo on 09-18-2022 MCHC (RBC) [Mass/Vol] 31.6 g/dL 32-36 [facility] No Panel InformationOrdered By: Dr. Leo on 09-18-2022 Estimated Creatinine Clearance Calc 47.13 ml/min [facility] Estimated GFR (MDRD) Amer 71 mL/min >60 [facility] Comment on above: GFR Calc Estimated GFR (MDRD) Non-Af Amer 58 mL/min >60 [facility] Comment on above: Non- GFR Calc Thyroid Stimulating Hormone (TSH) 3.64 uIU/mL 0.358-3.74 [facility] Troponin I High Sensitivity 8 pg/mL 3.0-78.0 [facility] Comment on above: Please Note: New [place] t Units and Gender Specific Reference Ranges. For more information see Policy Stat Procedure [place] High Sensitivity Troponin (TNIH) and attachments. Platelets bldOrdered By: Dr. Leo on 09-18-2022 Platelets (Bld) [#/Vol] 131 10*3/uL 150-450 [facility] Serum or plasma albumin francine urement (mass/volume)Ordered By: Dr. Leo on 09-18-2022 Albumin [Mass/Vol] 2.9 g/dL 3.2-5.0 [facility] Serum or plasma albumin/glob ulin mass ratioOrdered By: Dr. Leo on 09-18-2022 Albumin/Globulin [Mass ratio] 1.0 {ratio} 0.9-2.4 [facility] Serum or plasma calcium francine urement (mass/volume)Ordered By: Dr. Leo on 09-18-2022 Calcium [Mass/Vol] 7.6 mg/dL 8.5-10.1 [facility] Serum or plasma cholesterol in HDL measurement (mass/volume)Ordered By: Dr. Leo on 09-18-2022 Cholesterol in HDL [Mass/Vol] 36 mg/dL >40 [facility] Comment on above: The drugs N-Acetylcy steine and Metamizole may falsely depress this assay. Reference Range HDL <40 mg/dL Low HDL Cholesterol HDL >or= 60 mg/dL High HDL Cholesterol Serum or plasma cholesterol in VLDL measurement (mass/volume)Ordered By: Dr. Leo on 09-18-2022 Cholesterol in VLDL [Mass/Vol] 35 mg/dL 5-40 [facility] Serum or plasma creatinine m easurement (mass/volume)Ordered By: Dr. Leo on 09-18-2022 Creatinine [Mass/Vol] 1.27 mg/dL 0.70-1.30 [facility] Comment on above: The validity of the calculated GFR & GFRAA in patients over 70 years has not been determined. Clinical correlation is essential. Serum or plasma low density lipoprotein (LDL) cholesterol measurement (mass/volume)Ordered By: Dr. Leo on 09-18-2022 Cholesterol in LDL [Mass/Vol] 43 mg/dL 0-130 [facility] Serum or plasma urea nitroge n measurement (mass/volume)Ordered By: Dr. Leo on 09-18-2022 Urea nitrogen [Mass/Vol] 17 mg/dL 7-18 [facility] Thin prep Papanicolaou smear with manual screeningOrdered By: Dr. Leo on 09-18-2022 Thin prep Papanicolaou smear with manual screening 21 U/L 15-37 [facility] Thin prep Papanicolaou smear with manual screening 8 5-15 [facility] Whole blood hemoglobin A1c/t otal hemoglobin ratio (mass fraction)Ordered By: Dr. Leo on 09-18-2022 HbA1c (Bld) [Mass fraction] 7.7 % 3.8-5.6 [facility] Comment on above: Normal < 5.7 % Predi abetic 5.7 - 6.4 % Diabetic >or= 6.5 % Please note range changes. INR in Blood by Coagulation assayOrdered By: Dr. Hall on 09-17-2022 INR Coag (Bld) [Relative time] 0.9 {INR} [facility] Laboratory - Chemistry and C hemistry - challengeOrdered By: Dr. Leo on 09-17-2022 Magnesium [Mass/Vol] 2.3 mg/dL 1.6-2.6 [facility] Laboratory - CoagulationOrde red By: Dr. Hall on 09-17-2022 aPTT Coag (Bld) [Time] 32.1 s 24.1-36.2 [facility] PT Coag (PPP) [Time] 12.3 s 11.7-14.9 [facility] Basophil percentageOrdered B y: Dr. Hay on 09-01-2022 Bilirubin [Mass/Vol] 0.70 mg/dL 0.20-1.00 [facility] Comment on above: For patients on eltr ombopag therapy, use of Dimension [place] TBIL is not recommended. Chloride [Moles/Vol] 112 mmol/L 98-107 [facility] Glucose [Mass/Vol] 151 mg/dL 74-106 [facility] Comment on above: Fasting Glucose resu lt greater than or equal to 126 mg/dL suggests DIABETES MELLITUS per A.D.A. criteria. Potassium [Moles/Vol] 3.9 mmol/L 3.5-5.1 [facility] Protein [Mass/Vol] 5.7 g/dL 6.4-8.2 [facility] Sodium [Moles/Vol] 142 mmol/L 136-145 [facility] WBC (Bld) [#/Vol] 4.7 10*3/uL 4.4-11.0 [facility] Blood erythrocytes count (nu mber/volume)Ordered By: Dr. Hay on 09-01-2022 RBC (Bld) [#/Vol] 4.60 10*6/uL 4.6-6.2 [facility] Blood hemoglobin measurement (mass/volume)Ordered By: Dr. Hay on 09-01-2022 Hemoglobin (Bld) [Mass/Vol] 13.0 g/dL 13.0-16.5 [facility] Blood platelet mean volumeOr dered By: Dr. Hay on 09-01-2022 Platelet mean volume (Bld) [Entitic vol] 12.8 fL 6.2-12.0 [facility] Determination of erythrocyte mean corpuscular volume (MCV)Ordered By: Dr. Hay on 09-01-2022 MCV (RBC) [Entitic vol] 89.1 fL 80-94 [facility] Hematocrit Auto (Bld) [Volum e fraction]Ordered By: Dr. Hay on 09-01-2022 Hematocrit (Bld) [Volume fraction] 41.0 % 40-54 [facility] Laboratory - Chemistry and C hemistry - challengeOrdered By: Dr. Hay on 09-01-2022 ALP [Catalytic activity/Vol] 149 U/L 45-117 [facility] ALT [Catalytic activity/Vol] 35 U/L 16-61 [facility] CO2 [Moles/Vol] 27.0 mmol/L 21.0-32.0 [facility] Globulin (S) [Mass/Vol] 2.9 g/dL 2.2-4.2 [facility] Urea nitrogen/Creatinine [Mass ratio] 15.8 mg/mg 10-20 [facility] Laboratory - Hematology and Cell countsOrdered By: Dr. Hay on 09-01-2022 Erythrocyte distribution width (RBC) [Entitic vol] 44.1 fL 35.1-43.9 [facility] Erythrocyte distribution width (RBC) [Ratio] 13.5 % 11.6-14.6 [facility] MCH (RBC) [Entitic mass] 28.3 pg 27.0-32.0 [facility] MCHC Auto (RBC) [Mass/Vol]Or dered By: Dr. Hay on 09-01-2022 MCHC (RBC) [Mass/Vol] 31.7 g/dL 32-36 [facility] No Panel InformationOrdered By: Dr. Hay on 09-01-2022 Estimated Creatinine Clearance Calc 46.51 ml/min [facility] Estimated GFR (MDRD) Amer 67 mL/min >60 [facility] Comment on above: GFR Calc Estimated GFR (MDRD) Non-Af Amer 55 mL/min >60 [facility] Comment on above: Non- GFR Calc Platelets bldOrdered By: Dr. Hay on 09-01-2022 Platelets (Bld) [#/Vol] 106 10*3/uL 150-450 [facility] Serum or plasma albumin francine urement (mass/volume)Ordered By: Dr. Hay on 09-01-2022 Albumin [Mass/Vol] 2.8 g/dL 3.2-5.0 [facility] Serum or plasma albumin/glob ulin mass ratioOrdered By: Dr. Hay on 09-01-2022 Albumin/Globulin [Mass ratio] 1.0 {ratio} 0.9-2.4 [facility] Serum or plasma calcium francine urement (mass/volume)Ordered By: Dr. Hay on 09-01-2022 Calcium [Mass/Vol] 8.0 mg/dL 8.5-10.1 [facility] Serum or plasma creatinine m easurement (mass/volume)Ordered By: Dr. Hay on 09-01-2022 Creatinine [Mass/Vol] 1.33 mg/dL 0.70-1.30 [facility] Comment on above: The validity of the calculated GFR & GFRAA in patients over 70 years has not been determined. Clinical correlation is essential. Serum or plasma urea nitroge n measurement (mass/volume)Ordered By: Dr. Hay on 09-01-2022 Urea nitrogen [Mass/Vol] 21 mg/dL 7-18 [facility] Thin prep Papanicolaou smear with manual screeningOrdered By: Dr. Hay on 09-01-2022 Thin prep Papanicolaou smear with manual screening 21 U/L 15-37 [facility] Thin prep Papanicolaou smear with manual screening 3 5-15 [facility] No Panel InformationOrdered By: Dr. Hay on 08-31-2022 Activated Clotting Time 275 sec 74-137 [facility] Basophil percentageOrdered B y: Dr. Hay on 08-19-2022 Chloride [Moles/Vol] 108 mmol/L 98-107 [facility] Glucose [Mass/Vol] 158 mg/dL 74-106 [facility] Comment on above: Fasting Glucose resu lt greater than or equal to 126 mg/dL suggests DIABETES MELLITUS per A.D.A. criteria. Potassium [Moles/Vol] 4.3 mmol/L 3.5-5.1 [facility] Sodium [Moles/Vol] 137 mmol/L 136-145 [facility] WBC (Bld) [#/Vol] 8.2 10*3/uL 4.4-11.0 [facility] Blood erythrocytes count (nu mber/volume)Ordered By: Dr. Hay on 08-19-2022 RBC (Bld) [#/Vol] 5.05 10*6/uL 4.6-6.2 [facility] Blood hemoglobin measurement (mass/volume)Ordered By: Dr. Hay on 08-19-2022 Hemoglobin (Bld) [Mass/Vol] 14.3 g/dL 13.0-16.5 [facility] Blood platelet mean volumeOr dered By: Dr. Hay on 08-19-2022 Platelet mean volume (Bld) [Entitic vol] 12.5 fL 6.2-12.0 [facility] Determination of erythrocyte mean corpuscular volume (MCV)Ordered By: Dr. Hay on 08-19-2022 MCV (RBC) [Entitic vol] 88.3 fL 80-94 [facility] Hematocrit Auto (Bld) [Volum e fraction]Ordered By: Dr. Hay on 08-19-2022 Hematocrit (Bld) [Volume fraction] 44.6 % 40-54 [facility] INR in Blood by Coagulation assayOrdered By: Dr. Hay on 08-19-2022 INR Coag (Bld) [Relative time] 1.1 {INR} [facility] Laboratory - Chemistry and C hemistry - challengeOrdered By: Dr. Hay on 08-19-2022 CO2 [Moles/Vol] 25.0 mmol/L 21.0-32.0 [facility] Urea nitrogen/Creatinine [Mass ratio] 12.0 mg/mg 10-20 [facility] Laboratory - CoagulationOrde red By: Dr. Hay on 08-19-2022 aPTT Coag (Bld) [Time] 30.9 s 24.1-36.2 [facility] PT Coag (PPP) [Time] 13.4 s 11.7-14.9 [facility] Laboratory - Hematology and Cell countsOrdered By: Dr. Hay on 08-19-2022 Erythrocyte distribution width (RBC) [Entitic vol] 44.8 fL 35.1-43.9 [facility] Erythrocyte distribution width (RBC) [Ratio] 13.9 % 11.6-14.6 [facility] MCH (RBC) [Entitic mass] 28.3 pg 27.0-32.0 [facility] MCHC Auto (RBC) [Mass/Vol]Or dered By: Dr. Hay on 08-19-2022 MCHC (RBC) [Mass/Vol] 32.1 g/dL 32-36 [facility] No Panel InformationOrdered By: Dr. Hay on 08-19-2022 Estimated GFR (MDRD) Amer 72 mL/min >60 [facility] Comment on above: GFR Calc Estimated GFR (MDRD) Non-Af Amer 60 mL/min >60 [facility] Comment on above: Non- GFR Calc Platelets bldOrdered By: Dr. Hay on 08-19-2022 Platelets (Bld) [#/Vol] 151 10*3/uL 150-450 [facility] Serum or plasma calcium francine urement (mass/volume)Ordered By: Dr. Hay on 08-19-2022 Calcium [Mass/Vol] 9.0 mg/dL 8.5-10.1 [facility] Serum or plasma creatinine m easurement (mass/volume)Ordered By: Dr. Hay on 08-19-2022 Creatinine [Mass/Vol] 1.25 mg/dL 0.70-1.30 [facility] Comment on above: The validity of the calculated GFR & GFRAA in patients over 70 years has not been determined. Clinical correlation is essential. Serum or plasma urea nitroge n measurement (mass/volume)Ordered By: Dr. Hay on 08-19-2022 Urea nitrogen [Mass/Vol] 15 mg/dL 7-18 [facility] Thin prep Papanicolaou smear with manual screeningOrdered By: Dr. Hay on 08-19-2022 Thin prep Papanicolaou smear with manual screening 4 5-15 [facility] Basophil percentageOrdered B y: Dr. Rodriguez on 06-11-2022 Chloride [Moles/Vol] 102 mmol/L 98-107 [facility] Glucose [Mass/Vol] 274 mg/dL 74-106 [facility] Comment on above: Glucose result great er than or equal to 200 mg/dLsuggests DIABETES MELLITUS per A.D.A. criteria. Potassium [Moles/Vol] 4.3 mmol/L 3.5-5.1 [facility] Sodium [Moles/Vol] 136 mmol/L 136-145 [facility] Laboratory - Chemistry and C hemistry - challengeOrdered By: Dr. Rodriguez on 06-11-2022 CO2 [Moles/Vol] 24.0 mmol/L 21.0-32.0 [facility] Magnesium [Mass/Vol] 2.2 mg/dL 1.6-2.6 [facility] Urea nitrogen/Creatinine [Mass ratio] 15.7 mg/mg 10-20 [facility] No Panel InformationOrdered By: Dr. Rodriguez on 06-11-2022 Estimated GFR (MDRD) Amer 67 mL/min >60 [facility] Comment on above: GFR Calc Estimated GFR (MDRD) Non-Af Amer 55 mL/min >60 [facility] Comment on above: Non- GFR Calc Serum or plasma calcium francine urement (mass/volume)Ordered By: Dr. Rodriguez on 06-11-2022 Calcium [Mass/Vol] 8.7 mg/dL 8.5-10.1 [facility] Serum or plasma creatinine m easurement (mass/volume)Ordered By: Dr. Rodriguez on 06-11-2022 Creatinine [Mass/Vol] 1.34 mg/dL 0.70-1.30 [facility] Comment on above: The validity of the calculated GFR & GFRAA in patients over 70 years has not been determined. Clinical correlation is essential. Serum or plasma urea nitroge n measurement (mass/volume)Ordered By: Dr. Rodriguez on 06-11-2022 Urea nitrogen [Mass/Vol] 21 mg/dL 7-18 [facility] Thin prep Papanicolaou smear with manual screeningOrdered By: Dr. Rodriguez on 06-11-2022 Thin prep Papanicolaou smear with manual screening 10 5-15 [facility] Absolute lymphocyte countOrd ered By: Luz Elena Mckeon on 04-14-2022 Lymphocytes Auto (Unsp spec) [#/Vol] 1.60 10*3/uL 0.83-4.51 [facility] Basophil percentageOrdered B y: Luz Elena Mckeon on 04-14-2022 Basophils/100 WBC (Bld) 0.3 % 0-1 [facility] Chloride [Moles/Vol] 106 mmol/L 98-107 [facility] Eosinophils/100 WBC (Bld) 1.5 % 0-5 [facility] Glucose [Mass/Vol] 211 mg/dL 74-106 [facility] Comment on above: Glucose result great er than or equal to 200 mg/dLsuggests DIABETES MELLITUS per A.D.A. criteria. Neutrophils (Bld) [#/Vol] 3.8 10*3/uL 2.0-7.7 [facility] Neutrophils/100 WBC (Bld) 61.3 % 47-70 [facility] Potassium [Moles/Vol] 4.4 mmol/L 3.5-5.1 [facility] Sodium [Moles/Vol] 136 mmol/L 136-145 [facility] WBC (Bld) [#/Vol] 6.2 10*3/uL 4.4-11.0 [facility] Blood erythrocytes count (nu mber/volume)Ordered By: Luz Elena Mckeon on 04-14-2022 RBC (Bld) [#/Vol] 4.87 10*6/uL 4.6-6.2 [facility] Blood hemoglobin measurement (mass/volume)Ordered By: Luz Elena Mckeon on 04-14-2022 Hemoglobin (Bld) [Mass/Vol] 14.1 g/dL 13.0-16.5 [facility] Blood lymphocytes/100 leukoc ytesOrdered By: Luz Elena Mckeon on 04-14-2022 Lymphocytes/100 WBC (Bld) 25.8 % 19-41 [facility] Blood monocytes/100 leukocyt esOrdered By: Luz Elena Mckeon on 04-14-2022 Monocytes/100 WBC (Bld) 10.8 % 0-10 [facility] Blood platelet mean volumeOr dered By: Luz Elena Mckeon on 04-14-2022 Platelet mean volume (Bld) [Entitic vol] 12.8 fL 6.2-12.0 [facility] Determination of erythrocyte mean corpuscular volume (MCV)Ordered By: Luz Elena Mckeon on 04-14-2022 MCV (RBC) [Entitic vol] 88.1 fL 80-94 [facility] Hematocrit Auto (Bld) [Volum e fraction]Ordered By: Luz Elean Mckeon on 04-14-2022 Hematocrit (Bld) [Volume fraction] 42.9 % 40-54 [facility] Laboratory - Chemistry and C hemistry - challengeOrdered By: Luz Elena Mckeon on 04-14-2022 CO2 [Moles/Vol] 25.0 mmol/L 21.0-32.0 [facility] Natriuretic peptide B (Bld) [Mass/Vol] 54.2 pg/mL 0-100 [facility] Urea nitrogen/Creatinine [Mass ratio] 13.3 mg/mg 10-20 [facility] Laboratory - Hematology and Cell countsOrdered By: Luz Elena Mckeon on 04-14-2022 Erythrocyte distribution width (RBC) [Entitic vol] 44.7 fL 35.1-43.9 [facility] Erythrocyte distribution width (RBC) [Ratio] 13.9 % 11.6-14.6 [facility] Immature granulocytes/100 WBC (Bld) 0.300 % 0.0-0.9 [facility] Comment on above: IG% - Immature Granu locytes (promyelocytes, myelocytes and metamyelocytes) > 1% indicates that a LEFT SHIFT is Present. MCH (RBC) [Entitic mass] 29.0 pg 27.0-32.0 [facility] Nucleated RBC/100 WBC (Bld) [Ratio] 0 % 0-5 [facility] MCHC Auto (RBC) [Mass/Vol]Or dered By: Luz Elena Mckeon on 04-14-2022 MCHC (RBC) [Mass/Vol] 32.9 g/dL 32-36 [facility] No Panel InformationOrdered By: Luz Elena Mckeon on 04-14-2022 Estimated GFR (MDRD) Amer 81 mL/min >60 [facility] Comment on above: GFR Calc Estimated GFR (MDRD) Non-Af Amer 67 mL/min >60 [facility] Comment on above: Non- GFR Calc Platelets bldOrdered By: Loco Mckeon on 04-14-2022 Platelets (Bld) [#/Vol] 150 10*3/uL 150-450 [facility] Serum or plasma calcium francine urement (mass/volume)Ordered By: Luz Elena Mckeon on 04-14-2022 Calcium [Mass/Vol] 8.4 mg/dL 8.5-10.1 [facility] Serum or plasma creatinine m easurement (mass/volume)Ordered By: Luz Elena Mckeon on 04-14-2022 Creatinine [Mass/Vol] 1.13 mg/dL 0.70-1.30 [facility] Comment on above: The validity of the calculated GFR & GFRAA in patients over 70 years has not been determined. Clinical correlation is essential. Serum or plasma urea nitroge n measurement (mass/volume)Ordered By: Luz Elena Mckeon on 04-14-2022 Urea nitrogen [Mass/Vol] 15 mg/dL 7-18 [facility] Thin prep Papanicolaou smear with manual screeningOrdered By: Luz Elena Mckeon on 04-14-2022 Thin prep Papanicolaou smear with manual screening 5 5-15 [facility] Laboratory - Microbiology an d Antimicrobial susceptibilityon 03-27-2022 SARS-CoV-2 (COVID-19) RNA REAGAN+probe Ql (Unsp spec) Detected [facility] No Panel Informationon 03-27 Influenza Types A,B Rapid (Clinic) Not detected [facility] Absolute lymphocyte counton 11-21-2021 Lymphocytes Auto (Unsp spec) [#/Vol] 1.23 10*3/uL 0.83-4.51 [facility] Work Phone: [phone] Basophil percentageon 2021 Basophils/100 WBC (Bld) 0.3 % 0-1 [facility] Work Phone: [phone] Chloride [Moles/Vol] 106 mmol/L 98-107 [facility] Work Phone: [phone] Eosinophils/100 WBC (Bld) 1.2 % 0-5 [facility] Work Phone: [phone] Glucose [Mass/Vol] 166 mg/dL 74-106 [facility] Work Phone: Comment on above: Fasting Glucose resu lt greater than or equal to 126 mg/dL suggests DIABETES MELLITUS per A.D.A. criteria. Neutrophils (Bld) [#/Vol] 4.7 10*3/uL 2.0-7.7 [facility] Work Phone: Neutrophils/100 WBC (Bld) 69.8 % 47-70 [facility] Work Phone: [phone] Potassium [Moles/Vol] 4.2 mmol/L 3.5-5.1 [facility] Work Phone: Sodium [Moles/Vol] 140 mmol/L 136-145 [facility] Work Phone: [phone] WBC (Bld) [#/Vol] 6.7 10*3/uL 4.4-11.0 [facility] Work Phone: Blood erythrocytes count (nu mber/volume)on 11-21-2021 RBC (Bld) [#/Vol] 5.06 10*6/uL 4.6-6.2 [facility] Work Phone: Blood hemoglobin measurement (mass/volume)on 11-21-2021 Hemoglobin (Bld) [Mass/Vol] 14.3 g/dL 13.0-16.5 [facility] Work Phone: Blood lymphocytes/100 leukoc yteson 11-21-2021 Lymphocytes/100 WBC (Bld) 18.4 % 19-41 [facility] Work Phone: Blood monocytes/100 leukocyt eson 11-21-2021 Monocytes/100 WBC (Bld) 9.9 % 0-10 [facility] Work Phone: Blood platelet mean volumeon 11-21-2021 Platelet mean volume (Bld) [Entitic vol] 12.4 fL 6.2-12.0 [facility] Work Phone: Determination of erythrocyte mean corpuscular volume (MCV)on 11-21-2021 MCV (RBC) [Entitic vol] 89.1 fL 80-94 [facility] Work Phone: Hematocrit Auto (Bld) [Volum e fraction]on 11-21-2021 Hematocrit (Bld) [Volume fraction] 45.1 % 40-54 [facility] Work Phone: Laboratory - Chemistry and C hemistry - challengeon 11-21-2021 CO2 [Moles/Vol] 27.0 mmol/L 21.0-32.0 [facility] Work Phone: [phone] Natriuretic peptide B (Bld) [Mass/Vol] 60.9 pg/mL 0-100 [facility] Work Phone: Urea nitrogen/Creatinine [Mass ratio] 12.9 mg/mg 10-20 [facility] Work Phone: Laboratory - Hematology and Cell countson 11-21-2021 Erythrocyte distribution width (RBC) [Entitic vol] 45.1 fL 35.1-43.9 [facility] Work Phone: Erythrocyte distribution width (RBC) [Ratio] 14.0 % 11.6-14.6 [facility] Work Phone: Immature granulocytes/100 WBC (Bld) 0.400 % 0.0-0.9 [facility] Work Phone: Comment on above: IG% - Immature Granu locytes (promyelocytes, myelocytes and metamyelocytes) > 1% indicates that a LEFT SHIFT is Present. MCH (RBC) [Entitic mass] 28.3 pg 27.0-32.0 [facility] Work Phone: Nucleated RBC/100 WBC (Bld) [Ratio] 0 % 0-5 [facility] Work Phone: MCHC Auto (RBC) [Mass/Vol]on 11-21-2021 MCHC (RBC) [Mass/Vol] 31.7 g/dL 32-36 [facility] Work Phone: No Panel Informationon 11-21 Estimated GFR (MDRD) Amer 63 mL/min >60 [facility] Work Phone: Comment on above: GFR Calc Estimated GFR (MDRD) Non-Af Amer 52 mL/min >60 [facility] Work Phone: Comment on above: Non- GFR Calc Platelets bldon 11-21-2021 Platelets (Bld) [#/Vol] 135 10*3/uL 150-450 [facility] Work Phone: Serum or plasma calcium francine urement (mass/volume)on 11-21-2021 Calcium [Mass/Vol] 8.9 mg/dL 8.5-10.1 [facility] Work Phone: Serum or plasma creatinine m easurement (mass/volume)on 11-21-2021 Creatinine [Mass/Vol] 1.40 mg/dL 0.70-1.30 [facility] Work Phone: Comment on above: The validity of the calculated GFR & GFRAA in patients over 70 years has not been determined. Clinical correlation is essential. Serum or plasma urea nitroge n measurement (mass/volume)on 11-21-2021 Urea nitrogen [Mass/Vol] 18 mg/dL 7-18 [facility] Work Phone: Thin prep Papanicolaou smear with manual screeningon 11-21-2021 Thin prep Papanicolaou smear with manual screening 7 5-15 [facility] Work Phone: Absolute lymphocyte counton 11-16-2021 Lymphocytes Auto (Unsp spec) [#/Vol] 2.06 10*3/uL 0.83-4.51 [facility] Work Phone: Basophil percentageon 2021 Basophils/100 WBC (Bld) 0.3 % 0-1 [facility] Work Phone: Chloride [Moles/Vol] 104 mmol/L 98-107 [facility] Work Phone: Eosinophils/100 WBC (Bld) 1.4 % 0-5 [facility] Work Phone: Glucose [Mass/Vol] 170 mg/dL 74-106 [facility] Work Phone: Comment on above: Fasting Glucose resu lt greater than or equal to 126 mg/dL suggests DIABETES MELLITUS per A.D.A. criteria. Neutrophils (Bld) [#/Vol] 5.0 10*3/uL 2.0-7.7 [facility] Work Phone: Neutrophils/100 WBC (Bld) 62.3 % 47-70 [facility] Work Phone: Potassium [Moles/Vol] 4.4 mmol/L 3.5-5.1 [facility] Work Phone: [phone] Comment on above: Slight Hemolysis, Re sult may be falsely increased. Sodium [Moles/Vol] 137 mmol/L 136-145 [facility] Work Phone: [phone] WBC (Bld) [#/Vol] 7.9 10*3/uL 4.4-11.0 [facility] Work Phone: Blood erythrocytes count (nu mber/volume)on 11-16-2021 RBC (Bld) [#/Vol] 5.42 10*6/uL 4.6-6.2 [facility]: Blood hemoglobin measurement (mass/volume)on 11-16-2021 Hemoglobin (Bld) [Mass/Vol] 15.6 g/dL 13.0-16.5 [facility] Work Phone: Blood lymphocytes/100 leukoc yteson 11-16-2021 Lymphocytes/100 WBC (Bld) 26.0 % 19-41 [facility] Work Phone: Blood monocytes/100 leukocyt eson 11-16-2021 Monocytes/100 WBC (Bld) 9.6 % 0-10 [facility] Work Phone: Blood platelet mean volumeon 11-16-2021 Platelet mean volume (Bld) [Entitic vol] 12.9 fL 6.2-12.0 [facility] Work Phone: Determination of erythrocyte mean corpuscular volume (MCV)on 11-16-2021 MCV (RBC) [Entitic vol] 89.3 fL 80-94 [facility] Work Phone: Hematocrit Auto (Bld) [Volum e fraction]on 11-16-2021 Hematocrit (Bld) [Volume fraction] 48.4 % 40-54 [facility] Work Phone: Laboratory - Chemistry and C hemistry - challengeon 11-16-2021 CO2 [Moles/Vol] 27.0 mmol/L 21.0-32.0 [facility] Work Phone: Urea nitrogen/Creatinine [Mass ratio] 11.6 mg/mg 10-20 [facility] Work Phone: Laboratory - Hematology and Cell countson 11-16-2021 Erythrocyte distribution width (RBC) [Entitic vol] 44.5 fL 35.1-43.9 [facility] Work Phone: Erythrocyte distribution width (RBC) [Ratio] 13.8 % 11.6-14.6 [facility] Work Phone: Immature granulocytes/100 WBC (Bld) 0.400 % 0.0-0.9 [facility] Work Phone: Comment on above: IG% - Immature Granu locytes (promyelocytes, myelocytes and metamyelocytes) > 1% indicates that a LEFT SHIFT is Present. MCH (RBC) [Entitic mass] 28.8 pg 27.0-32.0 [facility] Work Phone: Nucleated RBC/100 WBC (Bld) [Ratio] 0 % 0-5 [facility] Work Phone: MCHC Auto (RBC) [Mass/Vol]on 11-16-2021 MCHC (RBC) [Mass/Vol] 32.2 g/dL 32-36 [facility] Work Phone: No Panel Informationon 11-16 Troponin I High Sensitivity 7 pg/mL 3.0-78.0 [facility] Work Phone: Comment on above: Please Note: New Jana t Units and Gender Specific Reference Ranges. For more information see Policy Stat Procedure [place] High Sensitivity Troponin (TNIH) and attachments. Estimated Creatinine Clearance Calc 45.54 ml/min [facility] Work Phone: Estimated GFR (MDRD) Amer 64 mL/min >60 [facility] Work Phone: Comment on above: GFR Calc Estimated GFR (MDRD) Non-Af Amer 53 mL/min >60 [facility] Work Phone: Comment on above: Non- GFR Calc Platelets bldon 11-16-2021 Platelets (Bld) [#/Vol] 142 10*3/uL 150-450 [facility] Work Phone: Serum or plasma calcium francine urement (mass/volume)on 11-16-2021 Calcium [Mass/Vol] 9.2 mg/dL 8.5-10.1 [facility] Work Phone: Serum or plasma creatinine m easurement (mass/volume)on 11-16-2021 Creatinine [Mass/Vol] 1.38 mg/dL 0.70-1.30 [facility] Work Phone: Comment on above: The validity of the calculated GFR & GFRAA in patients over 70 years has not been determined. Clinical correlation is essential. Serum or plasma urea nitroge n measurement (mass/volume)on 11-16-2021 Urea nitrogen [Mass/Vol] 16 mg/dL 7-18 [facility] Work Phone: Thin prep Papanicolaou smear with manual screeningon 11-16-2021 Thin prep Papanicolaou smear with manual screening 6 5-15 [facility] Work Phone: Basophil percentageon 2021 Chloride [Moles/Vol] 105 mmol/L 98-107 [facility] Work Phone: Glucose [Mass/Vol] 246 mg/dL 74-106 [facility] Work Phone: Comment on above: Glucose result great er than or equal to 200 mg/dLsuggests DIABETES MELLITUS per A.D.A. criteria. Potassium [Moles/Vol] 4.2 mmol/L 3.5-5.1 [facility] Work Phone: Sodium [Moles/Vol] 137 mmol/L 136-145 [facility] Work Phone: Laboratory - Chemistry and C hemistry - challengeon 10-28-2021 CO2 [Moles/Vol] 24.0 mmol/L 21.0-32.0 [facility] Work Phone: Urea nitrogen/Creatinine [Mass ratio] 15.6 mg/mg 10-20 [facility] Work Phone: No Panel Informationon 10-28 Estimated GFR (MDRD) Amer 74 mL/min >60 [facility] Work Phone: Comment on above: GFR Calc Estimated GFR (MDRD) Non-Af Amer 61 mL/min >60 [facility] Work Phone: Comment on above: Non- GFR Calc Serum or plasma calcium francine urement (mass/volume)on 10-28-2021 Calcium [Mass/Vol] 8.9 mg/dL 8.5-10.1 [facility] Work Phone: Serum or plasma creatinine m easurement (mass/volume)on 10-28-2021 Creatinine [Mass/Vol] 1.22 mg/dL 0.70-1.30 [facility] Work Phone: Comment on above: The validity of the calculated GFR & GFRAA in patients over 70 years has not been determined. Clinical correlation is essential. Serum or plasma urea nitroge n measurement (mass/volume)on 10-28-2021 Urea nitrogen [Mass/Vol] 19 mg/dL 7-18 [facility] Work Phone: Thin prep Papanicolaou smear with manual screeningon 10-28-2021 Thin prep Papanicolaou smear with manual screening 8 5-15 [facility] Work Phone: Whole blood hemoglobin A1c/t otal hemoglobin ratio (mass fraction)on 10-28-2021 HbA1c (Bld) [Mass fraction] 7.7 % 3.8-5.6 [facility] Work Phone: Comment on above: Normal < 5.7 % Predi abetic 5.7 - 6.4 % Diabetic >or= 6.5 % Please note range changes. Absolute lymphocyte counton 09-16-2021 Lymphocytes Auto (Unsp spec) [#/Vol] 1.24 10*3/uL 0.83-4.51 [facility] Work Phone: Basophil percentageon 2021 Basophils/100 WBC (Bld) 0.5 % 0-1 [facility] Work Phone: Chloride [Moles/Vol] 107 mmol/L 98-107 [facility] Work Phone: Eosinophils/100 WBC (Bld) 1.7 % 0-5 [facility] Work Phone: Glucose [Mass/Vol] 134 mg/dL 74-106 [facility] Work Phone: Comment on above: Fasting Glucose resu lt greater than or equal to 126 mg/dL suggests DIABETES MELLITUS per A.D.A. criteria. Neutrophils (Bld) [#/Vol] 4.4 10*3/uL 2.0-7.7 [facility] Work Phone: Neutrophils/100 WBC (Bld) 68.0 % 47-70 [facility] Work Phone: Potassium [Moles/Vol] 4.3 mmol/L 3.5-5.1 [facility] Work Phone: Sodium [Moles/Vol] 139 mmol/L 136-145 [facility] Work Phone: WBC (Bld) [#/Vol] 6.4 10*3/uL 4.4-11.0 [facility] Work Phone: Blood erythrocytes count (nu mber/volume)on 09-16-2021 RBC (Bld) [#/Vol] 4.84 10*6/uL 4.6-6.2 [facility]: Blood hemoglobin measurement (mass/volume)on 09-16-2021 Hemoglobin (Bld) [Mass/Vol] 14.1 g/dL 13.0-16.5 [facility] Work Phone: Blood lymphocytes/100 leukoc yteson 09-16-2021 Lymphocytes/100 WBC (Bld) 19.3 % 19-41 [facility] Work Phone: Blood monocytes/100 leukocyt eson 09-16-2021 Monocytes/100 WBC (Bld) 10.0 % 0-10 [facility] Work Phone: Blood platelet mean volumeon 09-16-2021 Platelet mean volume (Bld) [Entitic vol] 12.7 fL 6.2-12.0 [facility] Work Phone: Determination of erythrocyte mean corpuscular volume (MCV)on 09-16-2021 MCV (RBC) [Entitic vol] 90.1 fL 80-94 [facility] Work Phone: Hematocrit Auto (Bld) [Volum e fraction]on 09-16-2021 Hematocrit (Bld) [Volume fraction] 43.6 % 40-54 [facility] Work Phone: Laboratory - Chemistry and C hemistry - challengeon 09-16-2021 CO2 [Moles/Vol] 27.0 mmol/L 21.0-32.0 [facility] Work Phone: Natriuretic peptide B (Bld) [Mass/Vol] 80.9 pg/mL 0-100 [facility] Work Phone: Urea nitrogen/Creatinine [Mass ratio] 13.7 mg/mg 10-20 [facility] Work Phone: Laboratory - Hematology and Cell countson 09-16-2021 Erythrocyte distribution width (RBC) [Entitic vol] 46.2 fL 35.1-43.9 [facility] Work Phone: Erythrocyte distribution width (RBC) [Ratio] 13.9 % 11.6-14.6 [facility] Work Phone: Immature granulocytes/100 WBC (Bld) 0.500 % 0.0-0.9 [facility] Work Phone: Comment on above: IG% - Immature Granu locytes (promyelocytes, myelocytes and metamyelocytes) > 1% indicates that a LEFT SHIFT is Present. MCH (RBC) [Entitic mass] 29.1 pg 27.0-32.0 [facility] Work Phone: Nucleated RBC/100 WBC (Bld) [Ratio] 0 % 0-5 [facility] Work Phone: MCHC Auto (RBC) [Mass/Vol]on 09-16-2021 MCHC (RBC) [Mass/Vol] 32.3 g/dL 32-[address] [facility] Work Phone: No Panel Informationon 09-16 Estimated GFR (MDRD) Amer 73 mL/min >60 [facility] Work Phone: Comment on above: GFR Calc Estimated GFR (MDRD) Non-Af Amer 60 mL/min >60 [facility] Work Phone: Comment on above: Non- GFR Calc Platelets bldon 09-16-2021 Platelets (Bld) [#/Vol] 133 10*3/uL 150-450 [facility] Work Phone: Serum or plasma calcium francine urement (mass/volume)on 09-16-2021 Calcium [Mass/Vol] 9.0 mg/dL 8.5-10.1 [facility] Work Phone: Serum or plasma creatinine m easurement (mass/volume)on 09-16-2021 Creatinine [Mass/Vol] 1.24 mg/dL 0.70-1.30 [facility] Work Phone: Comment on above: The validity of the calculated GFR & GFRAA in patients over 70 years has not been determined. Clinical correlation is essential. Serum or plasma urea nitroge n measurement (mass/volume)on 09-16-2021 Urea nitrogen [Mass/Vol] 17 mg/dL 7-18 [facility] Work Phone: Thin prep Papanicolaou smear with manual screeningon 09-16-2021 Thin prep Papanicolaou smear with manual screening 5 5-15 [facility] Work Phone: Absolute lymphocyte counton 06-10-2021 Lymphocytes Auto (Unsp spec) [#/Vol] 1.00 10*3/uL 0.83-4.51 [facility] Work Phone: Basophil percentageon 2021 Basophils/100 WBC (Bld) 0.3 % 0-1 [facility] Work Phone: Chloride [Moles/Vol] 107 mmol/L 98-107 [facility] Work Phone: Eosinophils/100 WBC (Bld) 1.7 % 0-5 [facility] Work Phone: Glucose [Mass/Vol] 150 mg/dL 74-106 [facility] Work Phone: Comment on above: Fasting Glucose resu lt greater than or equal to 126 mg/dL suggests DIABETES MELLITUS per A.D.A. criteria. Neutrophils (Bld) [#/Vol] 4.9 10*3/uL 2.0-7.7 [facility] Work Phone: Neutrophils/100 WBC (Bld) 73.8 % 47-70 [facility] Work Phone: Potassium [Moles/Vol] 5.6 mmol/L 3.5-5.1 [facility] Work Phone: Comment on above: Moderate Hemolysis, Result may be falsely increased. Sodium [Moles/Vol] 139 mmol/L 136-145 [facility] Work Phone: WBC (Bld) [#/Vol] 6.7 10*3/uL 4.4-11.0 [facility] Work Phone: Blood erythrocytes count (nu mber/volume)on 06-10-2021 RBC (Bld) [#/Vol] 5.17 10*6/uL 4.6-6.2 [facility] Work Phone: Blood hemoglobin measurement (mass/volume)on 06-10-2021 Hemoglobin (Bld) [Mass/Vol] 15.5 g/dL 13.0-16.5 [facility] Work Phone: Blood lymphocytes/100 leukoc yteson 06-10-2021 Lymphocytes/100 WBC (Bld) 15.0 % 19-41 [facility] Work Phone: Blood monocytes/100 leukocyt eson 06-10-2021 Monocytes/100 WBC (Bld) 8.7 % 0-10 [facility] Work Phone: Blood platelet mean volumeon 06-10-2021 Platelet mean volume (Bld) [Entitic vol] 12.7 fL 6.2-12.0 [facility] Work Phone: Determination of erythrocyte mean corpuscular volume (MCV)on 06-10-2021 MCV (RBC) [Entitic vol] 89.6 fL 80-94 [facility] Work Phone: Hematocrit Auto (Bld) [Volum e fraction]on 06-10-2021 Hematocrit (Bld) [Volume fraction] 46.3 % 40-54 [facility] Work Phone: Laboratory - Chemistry and C hemistry - challengeon 06-10-2021 CO2 [Moles/Vol] 28.0 mmol/L 21.0-32.0 [facility] Work Phone: Urea nitrogen/Creatinine [Mass ratio] 12.7 mg/mg 10-20 [facility] Work Phone: Laboratory - Hematology and Cell countson 06-10-2021 Erythrocyte distribution width (RBC) [Entitic vol] 45.9 fL 35.1-43.9 [facility] Work Phone: Erythrocyte distribution width (RBC) [Ratio] 14.1 % 11.6-14.6 [facility] Work Phone: Immature granulocytes/100 WBC (Bld) 0.500 % 0.0-0.9 [facility] Work Phone: Comment on above: IG% - Immature Granu locytes (promyelocytes, myelocytes and metamyelocytes) > 1% indicates that a LEFT SHIFT is Present. MCH (RBC) [Entitic mass] 30.0 pg 27.0-32.0 [facility] Work Phone: Nucleated RBC/100 WBC (Bld) [Ratio] 0 % 0-5 [facility] Work Phone: MCHC Auto (RBC) [Mass/Vol]on 06-10-2021 MCHC (RBC) [Mass/Vol] 33.5 g/dL 32-[address] [facility] Work Phone: No Panel Informationon 06-10 Troponin I High Sensitivity 10 pg/mL 3.0-78.0 [facility] Work Phone: Comment on above: Please Note: New [place]ana t Units and Gender Specific Reference Ranges. For more information see Policy Stat Procedure [place] High Sensitivity Troponin (TNIH) and attachments. Estimated Creatinine Clearance Calc 47.63 ml/min [facility] Work Phone: Estimated GFR (MDRD) Amer 67 mL/min >60 [facility] Work Phone: Comment on above: GFR Calc Estimated GFR (MDRD) Non-Af Amer 55 mL/min >60 [facility] Work Phone: Comment on above: Non- GFR Calc Platelets bldon 06-10-2021 Platelets (Bld) [#/Vol] 146 10*3/uL 150-450 [facility] Work Phone: Serum or plasma calcium francine urement (mass/volume)on 06-10-2021 Calcium [Mass/Vol] 8.7 mg/dL 8.5-10.1 [facility] Work Phone: Serum or plasma creatinine m easurement (mass/volume)on 06-10-2021 Creatinine [Mass/Vol] 1.34 mg/dL 0.70-1.30 [facility] Work Phone: Comment on above: The validity of the calculated GFR & GFRAA in patients over 70 years has not been determined. Clinical correlation is essential. Serum or plasma urea nitroge n measurement (mass/volume)on 06-10-2021 Urea nitrogen [Mass/Vol] 17 mg/dL 7-18 [facility] Work Phone: Thin prep Papanicolaou smear with manual screeningon 06-10-2021 Thin prep Papanicolaou smear with manual screening 4 5-15 [facility] Work Phone: Absolute lymphocyte counton 05-19-2021 Lymphocytes Auto (Unsp spec) [#/Vol] 1.72 10*3/uL 0.83-4.51 [facility] Work Phone: Basophil percentageon 2021 Basophils/100 WBC (Bld) 0.4 % 0-1 [facility] Work Phone: [phone] Bilirubin [Mass/Vol] 1.20 mg/dL 0.20-1.00 [facility] Work Phone: [phone] Comment on above: For patients on eltr ombopag therapy, use of Dimension [place] TBIL is not recommended. Chloride [Moles/Vol] 106 mmol/L 98-107 [facility] Work Phone: [phone] Eosinophils/100 WBC (Bld) 1.2 % 0-5 [facility] Work Phone: [phone] Glucose [Mass/Vol] 182 mg/dL 74-106 [facility] Work Phone: Comment on above: Fasting Glucose resu lt greater than or equal to 126 mg/dL suggests DIABETES MELLITUS per A.D.A. criteria. Neutrophils (Bld) [#/Vol] 6.6 10*3/uL 2.0-7.7 [facility] Work Phone: [phone] Neutrophils/100 WBC (Bld) 70.5 % 47-70 [facility] Work Phone: [phone] Potassium [Moles/Vol] 3.8 mmol/L 3.5-5.1 [facility] Work Phone: [phone] Protein [Mass/Vol] 7.9 g/dL 6.4-8.2 [facility] Work Phone: [phone] Sodium [Moles/Vol] 139 mmol/L 136-145 [facility] Work Phone: [phone] WBC (Bld) [#/Vol] 9.4 10*3/uL 4.4-11.0 [facility] Work Phone: [phone] Basophil percentage 0 SEEN /hpf [facility] Work Phone: [phone] Bilirubin Test strip Ql (U)o n 05-19-2021 Bilirubin Ql (U) Negative Negative [facility] Work Phone: Blood erythrocytes count (nu mber/volume)on 05-19-2021 RBC (Bld) [#/Vol] 5.30 10*6/uL 4.6-6.2 [facility] Work Phone: Blood hemoglobin measurement (mass/volume)on 05-19-2021 Hemoglobin (Bld) [Mass/Vol] 15.3 g/dL 13.0-16.5 [facility] Work Phone: Blood lymphocytes/100 leukoc yteson 05-19-2021 Lymphocytes/100 WBC (Bld) 18.3 % 19-41 [facility] Work Phone: Blood monocytes/100 leukocyt eson 05-19-2021 Monocytes/100 WBC (Bld) 9.3 % 0-10 [facility] Work Phone: Blood platelet mean volumeon 05-19-2021 Platelet mean volume (Bld) [Entitic vol] 12.5 fL 6.2-12.0 [facility] Work Phone: Determination of erythrocyte mean corpuscular volume (MCV)on 05-19-2021 MCV (RBC) [Entitic vol] 89.8 fL 80-94 [facility] Work Phone: Hematocrit Auto (Bld) [Volum e fraction]on 05-19-2021 Hematocrit (Bld) [Volume fraction] 47.6 % 40-54 [facility] Work Phone: Ketones Test strip Ql (U)on 05-19-2021 Ketones Ql (U) Negative Negative [facility] Work Phone: Laboratory - Chemistry and C hemistry - challengeon 05-19-2021 ALP [Catalytic activity/Vol] 156 U/L 45-117 [facility] Work Phone: ALT [Catalytic activity/Vol] 44 U/L 16-61 [facility] Work Phone: CO2 [Moles/Vol] 26.0 mmol/L 21.0-32.0 [facility] Work Phone: Globulin (S) [Mass/Vol] 4.2 g/dL 2.2-4.2 [facility] Work Phone: Lipase [Catalytic activity/Vol] 199 U/L 73-393 [facility] Work Phone: Urea nitrogen/Creatinine [Mass ratio] 13.8 mg/mg 10-20 [facility] Work Phone: Laboratory - Hematology and Cell countson 05-19-2021 Erythrocyte distribution width (RBC) [Entitic vol] 46.7 fL 35.1-43.9 [facility] Work Phone: Erythrocyte distribution width (RBC) [Ratio] 14.3 % 11.6-14.6 [facility] Work Phone: Immature granulocytes/100 WBC (Bld) 0.300 % 0.0-0.9 [facility] Work Phone: Comment on above: IG% - Immature Granu locytes (promyelocytes, myelocytes and metamyelocytes) > 1% indicates that a LEFT SHIFT is Present. MCH (RBC) [Entitic mass] 28.9 pg 27.0-32.0 [facility] Work Phone: Nucleated RBC/100 WBC (Bld) [Ratio] 0 % 0-5 [facility] Work Phone: MCHC Auto (RBC) [Mass/Vol]on 05-19-2021 MCHC (RBC) [Mass/Vol] 32.1 g/dL 32-36 [facility] Work Phone: Mucus LM Ql (Urine sed)on Mucus Ql (Urine sed) 0 SEEN /hpf [facility] Work Phone: Nitrite Test strip Ql (U)on 05-19-2021 Nitrite Ql (U) Negative Negative [facility] Work Phone: No Panel Informationon 05-19 Estimated Creatinine Clearance Calc 46.25 ml/min [facility] Work Phone: Estimated GFR (MDRD) Amer 65 mL/min >60 [facility] Work Phone: Comment on above: GFR Calc Estimated GFR (MDRD) Non-Af Amer 53 mL/min >60 [facility] Work Phone: Comment on above: Non- GFR Calc Platelets bldon 05-19-2021 Platelets (Bld) [#/Vol] 158 10*3/uL 150-450 [facility] Work Phone: Protein Test strip Ql (U)on 05-19-2021 Protein Ql (U) Negative Negative [facility] Work Phone: Serum or plasma albumin francine urement (mass/volume)on 05-19-2021 Albumin [Mass/Vol] 3.7 g/dL 3.2-5.0 [facility] Work Phone: Serum or plasma albumin/glob ulin mass ratioon 05-19-2021 Albumin/Globulin [Mass ratio] 0.9 {ratio} 0.9-2.4 [facility] Work Phone: Serum or plasma calcium francine urement (mass/volume)on 05-19-2021 Calcium [Mass/Vol] 9.2 mg/dL 8.5-10.1 [facility] Work Phone: Serum or plasma creatinine m easurement (mass/volume)on 05-19-2021 Creatinine [Mass/Vol] 1.38 mg/dL 0.70-1.30 [facility] Work Phone: Comment on above: The validity of the calculated GFR & GFRAA in patients over 70 years has not been determined. Clinical correlation is essential. Serum or plasma urea nitroge n measurement (mass/volume)on 05-19-2021 Urea nitrogen [Mass/Vol] 19 mg/dL 7-18 [facility] Work Phone: Squamous epithelial cells de tection in urine sediment by light microscopyon 05-19-2021 Epithelial cells.squamous LM Ql (Urine sed) 0 SEEN /hpf [facility] Work Phone: Thin prep Papanicolaou smear with manual screeningon 05-19-2021 Thin prep Papanicolaou smear with manual screening 25 U/L 15-37 [facility] Work Phone: Thin prep Papanicolaou smear with manual screening 7 5-15 [facility] Work Phone: Urine blood detectionon 05-03 RBC Ql (U) Negative Negative [facility] Work Phone: RBC Ql (U) 0 SEEN /hpf [facility] Work Phone: Urine clarityon 05-19-2021 Clarity (U) Clear Clear [facility] Work Phone: Urine color determinationon 05-19-2021 Color (U) Straw Yellow [facility] Work Phone: Urine glucose detectionon Glucose Ql (U) Normal mg/dl Normal [facility] Work Phone: Urine leukocyte esterase det ection by dipstickon 05-19-2021 Leukocyte esterase Test strip Ql (U) Negative Negative [facility] Work Phone: Urine pHon 05-19-2021 pH (U) 5.0 [pH] [facility] Work Phone: Urine sediment bacteria coun t by microscopy (number/high power field)on 05-19-2021 Bacteria LM.HPF (Urine sed) [#/Area] 0 /[HPF] None Seen [facility] Work Phone: Urine specific gravity measu rementon 05-19-2021 Specific gravity (U) [Rel density] 1.010 [facility] Work Phone: Urobilinogen Auto test strip Ql (U)on 05-19-2021 Urobilinogen Ql (U) Normal mg/dl Normal [facility] Work Phone: CT ANGIOGRAM AORTA CHEST ABD OMEN PELVISon 02-24-2021 CT ANGIOGRAM AORTA CHEST ABDOMEN PELVIS IMPRESSION: 1. 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 2. Coronary artery disease with evidence for an RCA stent. 3. No significant abdominal aortic or visceral stenosis other than a concentric 30% stenosis involving the proximal left common iliac artery. 4. Degenerative changes within the thoracic spine, lumbar spine and sacroiliac joints. 5. Old healed right-sided rib fractures. 6. Pancolonic diverticulosis. 7. Bilateral gynecomastia. EXAMINATION: CT ANGIOGRAM OF THE CHEST, ABDOMEN AND PELVIS HISTORY: Coronary artery disease. COMPARISON: Comparison is made with a CT of the chest performed 06/16/2015. TECHNIQUE: Helical CT of the chest, abdomen and pelvis was performed during arterial phase following the intravenous administration of 75 mL of Isovue-370. Multiplanar and 3D reconstruction images were also generated and viewed on a separate CT workstation. Dose reduction techniques were achieved by using: automated exposure control and/or adjustment of mA and /or kV according to patient size and/or use of iterative reconstruction technique. FINDINGS: CT ANGIOGRAM: The ascending thoracic aorta measures 3.3 cm in diameter measured at the level of the main pulmonary artery and is free of dissection or significant stenosis. Trace atherosclerotic calcifications are noted within the aortic arch with diameter of 2.5 cm. The proximal descending thoracic aorta measures 2.5 cm. 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 There is no significant stenosis involving the great vessels. The descending thoracic aorta is tortuous within its [id number] course but is not aneurysmal. The abdominal aorta is normal in course and caliber with trace atherosclerotic calcified plaque but without significant resulting stenosis. The celiac artery demonstrates mild proximal stenosis at the level of the median arcuate ligament. The superior mesenteric artery and inferior mesenteric artery are patent without significant stenosis. The 2 left-sided and solitary right renal arteries are patent without significant stenosis. The right common iliac artery, external iliac artery and internal iliac artery are patent with trace calcified plaque without significant stenosis. The right common femoral artery and visualized proximal right superficial femoral artery and deep femoral artery are widely patent. The left common iliac artery ostium demonstrates concentric mostly noncalcified plaque with 30% stenosis. The remainder of the left common iliac artery, external iliac artery and internal iliac artery are patent without significant stenosis. The left common femoral artery and proximal deep femoral artery and superficial femoral artery are widely patent. CHEST: There is no significant axillary, mediastinal or hilar adenopathy. The heart is within normal limits with coronary artery calcifications and evidence for stent placement within the proximal RCA. Gynecomastia is noted, left greater than right. Central airways are patent. Stable juxtapleural scarring is noted in the right upper lobe. Stable subsegmental atelectasis noted in the periphery of the lingula. There is no pulmonary infiltrate or pleural effusion or pneumothorax. Calcified granuloma is noted within the left lower lobe at the infrahilar level. Degenerative changes are noted throughout the thoracic spine in the form of osteophyte formation. Anterior cervical fusion changes noted within the lower cervical spine. Healed rib fractures are noted involving the right-sided 2nd through 6th ribs. Degenerative changes are noted within the left glenohumeral joint with a surgical anchor noted within the glenoid. ABDOMEN: The liver, post cholecystectomy biliary tree, spleen and pancreas are unremarkable. Adrenal glands are not enlarged. Parapelvic cyst is noted within the left kidney. Otherwise, no hydronephrosis is noted. There is no significant mesenteric or retroperitoneal adenopathy. There is no bowel obstruction, free air or ascites. Pancolonic diverticulosis is noted without diverticulitis. PELVIS: The appendix is normal. There is no pelvic adenopathy or ascites. Osteophyte formation is noted within the bilateral anterior sacroiliac joints, right greater than left. Facet arthropathy and osteophyte formation are noted within the lower lumbar spine particularly at L4-L5 and L5-S1. IMAGING FACILITY: [facility]. SB/tde Workstation ID: [id number] Dictated by: YAS IYER on WedFeb 26, 2021 1:26:53 PM EDT Transcribed by: KEIKO CORLEY on WedFeb 26, 2021 1:43:47 PM EDT Finalized by: YAS IYER on WedFeb 27, 2021 7:40:59 AM EDT Normal [facility] Comment on above: Order Comment: Injur y/Trauma or Illness?:Illness/Other How long have you had these symptoms (acute/chronic)?:Acute Reason for exam?:Coronary artery disease involving [place] coronary artery of [place] heart with angina pectoris, recent heart cath Type of Exam?:Subsequent/Follow-up Additional signs and symptoms?: LEFT HEART CATH POSSIBLE PTC A/STENTon 01-10-2021 LEFT HEART CATH POSSIBLE PTCA/STENT Patient Name: ERIBERTO RICO Date of : 1945 Procedure Date: 01/10/2021 Cath #: [id number] Physician(s): Eladio Ingram MD Ref. Physician: PROCEDURE(S) PERFORMED: Clinical History: Prior smoker, quit date: Diabetes Mellitus: Yes Hypertension: Yes Dyslipidemia: Yes Prior UT: Yes Other: Stroke Prior PCI: Yes 2016 Pre-OP Diagnosis/Indication : ACC Indications: Worsening Angina ASA Classification: II ASA status unchanged immediately prior to sedation administration. Heart, lungs, and airway assessed prior to sedation. Following informed consent, the patient was brought to the procedure room in the fasting state. was prepped and draped in a sterile fashion. Local anesthesia was attained with 2% Lidocaine SQ, total injected 10 mls to the Right groin region. Using standard technique, sheath(s) were placed in the following site(s): right femoral artery - 4F MICROPUNCTURE STIFF MINISTICK right femoral artery - 6F. 10 cm [place] Catheters were advanced using standard guide wire technique. Multiple angiographic pictures were taken and appropriate pressures obtained. Hemodynamics: Time AIR REST AO 137/67 (94) SA 10:36:02 LV 130/9, 32 10:37:19 LV 0/21, 0 10:37:28 LVp 147/1, 24 10:37:32 After review of the angiography and assurance of the patient's stability, the catheter was withdrawn from the sheath and CORONARY_ANGIO/FINDI NGS Tubular 30% Proximal lesion in LAD Luminal Irregularities 30% Proximal lesion in RCA ANNOTATION: Old stent. ANNOTATION: Old Stents Ventricular Function: LV Gram- 50% EF with normal wall motion Valve Function: Valve functions within normal limits. Dominance: < Right Dominant POST-OP DIAGNOSIS: Coronary Artery Disease angiographic - less than 50% CARDIAC RECOMMENDATIONS: Medical therapy Risk factor modification COMMENTS: No Complications _ _ Intraprocedure Medications: Versed 2 mg IV given for anxiety and general discomfort per verbal order - Eladio Ingram M.D. Equipment: Sheath(s) [employer] 4F MICROPUNCTURE KIT [employer] 6F 10CM [place] SHEATH Wire(s) [employer] J WIRE FIXED MERIT .035 X 150CM GUIDEWIRE Catheter(s) [employer] JR4 DIAG CATH 6F [employer] JR4 DIAG CATH 6F [employer] PIGTAIL STRAIGHT DIAG CATH 6F See Nursing Notes for further details Signed By Eladio Ingram MD On 01/10/2021 11:05:05 Eladio Ingram MD _ _ [facility] ECHOCARDIOGRAM 2D COMPLETEOr dered By: Eladio Ingram on 10-15-2020 Aortic valve area 2.40918 cm [facility] AV mean gradient 6 mmHg [facility] EF 62.7797 % [facility] Patient Info Name: ERIBERTO RICO Age: 75 years : 1945 Gender: Male Ht: 175 cm Wt: 106 kg BSA: 2.31 m2 HR: 50 bpm BP: 134 / 72 mmHg Heart Rhythm: Bradycardia, Sinus Rhythm Technical Quality: Fair, Technically difficult Exam Date: 10/15/2020 12:57 PM Patient Status: Outpatient Monitor Worker: Tracy Bonilla, RDCS, RVT Exam Type: ECHOCARDIOGRAM COMPLETE W CONTRAST Study Info Indications - Dyspnea Attending Physician: ELADIO INGRAM Referring Physician: ELADIO INGRAM ; [id number] BMI: 34.56 kg/m2 Summary 1. Left ventricular systolic function is normal, with ejection fraction estimated at 60 +/- 5%. 2. The left ventricular diastolic function is normal. 3. 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 4. There is no aortic valve stenosis. History/Risk Factors Hypertension: Yes Dyslipidemia: Yes Diabetic Therapy: Oral Peripheral Arterial Disease (PAD): Yes Myocardial Infarction (UT): Yes Coronary Artery Disease (CAD) Yes Congestive Heart Failure (CHF): Hx CHF Date of Prior UT: 05/03/2008 Diabetes Mellitus: Yes History/Risk Factors sleep apnea. Prior Interventions PCI: Yes Date of PCI: 01/04/2015 Procedure(s): Complete two-dimensional, color flow and Doppler transthoracic echocardiogram is performed with contrast. Definity explained to patient. Patient verbalizes understanding and agrees to proceed. Definity 1.3ml/8.7ml normal sterile saline 1 ml total given IV over 30-60 seconds. Left Ventricle Left ventricular chamber dimension is normal. Left ventricular systolic function is normal, with ejection fraction estimated at 60 +/- 5%. No significant left ventricular concentric hypertrophy. Left ventricular segmental wall motion is normal. The left ventricular diastolic function is normal. Right Ventricle Right ventricular chamber dimension is normal. Right ventricular systolic function is normal. Left Atria Left atrial chamber is normal with a left atrial volume index of 27 ml/m2 by BP MOD. Right Atria Right atrial chamber dimension is normal. Aortic Valve The aortic valve is trileaflet. 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 There is no aortic valve stenosis with a peak velocity of 1.8 m/s, mean gradient of 6 mmHg, and aortic valve area of 2.6 cm2. There is no aortic valve regurgitation. There is no aortic valve stenosis. Pulmonic Valve The pulmonic valve is normal. There is no pulmonic valve stenosis. There is trace pulmonic regurgitation. Mitral Valve The mitral valve has thickened leaflets and calcified annulus. There is no mitral valve stenosis. There is trace mitral valve regurgitation. Tricuspid Valve The tricuspid valve leaflets are normal. There is no significant tricuspid valve stenosis. There is no tricuspid valve regurgitation. The pulmonary artery systolic pressure could not be accurately estimated. Pericardium/Pleural The pericardium appears normal. There is no pericardial effusion. Inferior Vena Cava Normal inferior vena cava with >50% collapse upon inspiration consistent with normal right atrial pressure. Aorta The aortic measurements are indexed to age and body surface area. The aortic root is normal measuring 2.6 cm with an index of 1.1 cm/m2. The proximal ascending aorta is normal measuring 2.9 cm with an index of 1.3 cm/m2. Left Ventricular Outflow Tract Name Value Normal LVOT 2D LVOT Diameter 2.2 cm LVOT Doppler LVOT Peak Velocity 1.3 m/s LVOT Mean Gradient 2 mmHg LVOT VTI 30 cm LVOT VTI/AV VTI Ratio 0.7 LVOT Stroke Volume 113 ml LVOT Stroke Index 48.82 ml/m2 Pulmonic Valve Name Value Normal PV Doppler PV Peak Velocity 1.48 m/s PV Mean Gradient 4 mmHg PV VTI 33 cm Mitral Valve Name Value Normal MV Doppler MV Peak Velocity 1.09 m/s (more content not included)... [facility], Rad In [facility] - 10/15/2020 4:30 PM EDT Patient Info Name: ERIBERTO RICO Age: 75 years : 1945 Gender: Male Ht: 175 cm Wt: 106 kg BSA: 2.31 m2 HR: 50 bpm BP: 134 / 72 mmHg Heart Rhythm: Bradycardia, Sinus Rhythm Technical Quality: Fair, Technically difficult Exam Date: 10/15/2020 12:57 PM Patient Status: Outpatient Monitor Worker: Tracy Bonilla, MONICACS, RVT Exam Type: ECHOCARDIOGRAM COMPLETE W CONTRAST Study Info Indications - Dyspnea Attending Physician: ELADIO INGRAM Referring Physician: ELADIO INGRAM ; [id number] BMI: 34.56 kg/m2 Summary 1. Left ventricular systolic function is normal, with ejection fraction estimated at 60 +/- 5%. 2. The left ventricular diastolic function is normal. 3. 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 4. There is no aortic valve stenosis. History/Risk Factors Hypertension: Yes Dyslipidemia: Yes Diabetic Therapy: Oral Peripheral Arterial Disease (PAD): Yes Myocardial Infarction (UT): Yes Coronary Artery Disease (CAD) Yes Congestive Heart Failure (CHF): Hx CHF Date of Prior UT: 05/03/2008 Diabetes Mellitus: Yes History/Risk Factors sleep apnea. Prior Interventions PCI: Yes Date of PCI: 01/04/2015 Procedure(s): Complete two-dimensional, color flow and Doppler transthoracic echocardiogram is performed with contrast. Definity explained to patient. Patient verbalizes understanding and agrees to proceed. Definity 1.3ml/8.7ml normal sterile saline 1 ml total given IV over 30-60 seconds. Left Ventricle Left ventricular chamber dimension is normal. Left ventricular systolic function is normal, with ejection fraction estimated at 60 +/- 5%. No significant left ventricular concentric hypertrophy. Left ventricular segmental wall motion is normal. The left ventricular diastolic function is normal. Right Ventricle Right ventricular chamber dimension is normal. Right ventricular systolic function is normal. Left Atria Left atrial chamber is normal with a left atrial volume index of 27 ml/m2 by BP MOD. Right Atria Right atrial chamber dimension is normal. Aortic Valve The aortic valve is trileaflet. 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 There is no aortic valve stenosis with a peak velocity of 1.8 m/s, mean gradient of 6 mmHg, and aortic valve area of 2.6 cm2. There is no aortic valve regurgitation. There is no aortic valve stenosis. Pulmonic Valve The pulmonic valve is normal. There is no pulmonic valve stenosis. There is trace pulmonic regurgitation. Mitral Valve The mitral valve has thickened leaflets and calcified annulus. There is no mitral valve stenosis. There is trace mitral valve regurgitation. Tricuspid Valve The tricuspid valve leaflets are normal. There is no significant tricuspid valve stenosis. There is no tricuspid valve regurgitation. The pulmonary artery systolic pressure could not be accurately estimated. Pericardium/Pleural The pericardium appears normal. There is no pericardial effusion. Inferior Vena Cava Normal inferior vena cava with >50% collapse upon inspiration consistent with normal right atrial pressure. Aorta The aortic measurements are indexed to age and body surface area. The aortic root is normal measuring 2.6 cm with an index of 1.1 cm/m2. The proximal ascending aorta is normal measuring 2.9 cm with an index of 1.3 cm/m2. Left Ventricular Outflow Tract Name Value Normal LVOT 2D LVOT Diameter 2.2 cm LVOT Doppler LVOT Peak Velocity 1.3 m/s LVOT Mean Gradient 2 mmHg LVOT VTI 30 cm LVOT VTI/AV VTI Ratio 0.7 LVOT Stroke Volume 113 ml LVOT Stroke Index 48.82 ml/m2 Pulmonic Valve Name Value Normal PV Doppler PV Peak Velocity 1.48 m/s PV Mean Gradient 4 mmHg PV VTI 33 cm Mitral Valve Name Value Normal MV Doppler MV Peak Velocity 1.09 m/s MV Mean Gradient 2 mmHg MV VTI 46 cm MV Decel Hartley 333 cm/s2 MV PHT 38 ms MV Area (PHT) 5.8 cm2 4.0-5.0 MV Area (Cont Eq VTI) 2.5 cm2 MV Area Index (Cont Eq VTI) 1.06 cm2/m2 MV Di (more content not included)... [facility] ECHOCARDIOGRAM COMPLETE W CO NTRASTon 10-15-2020 ECHOCARDIOGRAM COMPLETE W CONTRAST Patient Info Name: ERIBERTO RICO Age: 75 years : 1945 Gender: Male Ht: 175 cm Wt: 106 kg BSA: 2.31 m2 HR: 50 bpm BP: 134 / 72 mmHg Heart Rhythm: Bradycardia, Sinus Rhythm Technical Quality: Fair, Technically difficult Exam Date: 10/15/2020 12:57 PM Patient Status: Outpatient Monitor Worker: Tracy Bonilla, DRU, RVT Exam Type: ECHOCARDIOGRAM COMPLETE W CONTRAST Study Info Indications - Dyspnea Attending Physician: ELADIO INGRAM Referring Physician: ELADIO INGRAM ; [id number] BMI: 34.56 kg/m2 Summary 1. Left ventricular systolic function is normal, with ejection fraction estimated at 60 +/- 5%. 2. The left ventricular diastolic function is normal. 3. 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 4. There is no aortic valve stenosis. History/Risk Factors Hypertension: Yes Dyslipidemia: Yes Diabetic Therapy: Oral Peripheral Arterial Disease (PAD): Yes Myocardial Infarction (UT): Yes Coronary Artery Disease (CAD) Yes Congestive Heart Failure (CHF): Hx CHF Date of Prior UT: 05/03/2008 Diabetes Mellitus: Yes History/Risk Factors sleep apnea. Prior Interventions PCI: Yes Date of PCI: 01/04/2015 Procedure(s): Complete two-dimensional, color flow and Doppler transthoracic echocardiogram is performed with contrast. Definity explained to patient. Patient verbalizes understanding and agrees to proceed. Definity 1.3ml/8.7ml normal sterile saline 1 ml total given IV over 30-60 seconds. Left Ventricle Left ventricular chamber dimension is normal. Left ventricular systolic function is normal, with ejection fraction estimated at 60 +/- 5%. No significant left ventricular concentric hypertrophy. Left ventricular segmental wall motion is normal. The left ventricular diastolic function is normal. Right Ventricle Right ventricular chamber dimension is normal. Right ventricular systolic function is normal. Left Atria Left atrial chamber is normal with a left atrial volume index of 27 ml/m2 by BP MOD. Right Atria Right atrial chamber dimension is normal. Aortic Valve The aortic valve is trileaflet. 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 There is no aortic valve stenosis with a peak velocity of 1.8 m/s, mean gradient of 6 mmHg, and aortic valve area of 2.6 cm2. There is no aortic valve regurgitation. There is no aortic valve stenosis. Pulmonic Valve The pulmonic valve is normal. There is no pulmonic valve stenosis. There is trace pulmonic regurgitation. Mitral Valve The mitral valve has thickened leaflets and calcified annulus. There is no mitral valve stenosis. There is trace mitral valve regurgitation. Tricuspid Valve The tricuspid valve leaflets are normal. There is no significant tricuspid valve stenosis. There is no tricuspid valve regurgitation. The pulmonary artery systolic pressure could not be accurately estimated. Pericardium/Pleural The pericardium appears normal. There is no pericardial effusion. Inferior Vena Cava Normal inferior vena cava with >50% collapse upon inspiration consistent with normal right atrial pressure. Aorta The aortic measurements are indexed to age and body surface area. The aortic root is normal measuring 2.6 cm with an index of 1.1 cm/m2. The proximal ascending aorta is normal measuring 2.9 cm with an index of 1.3 cm/m2. Left Ventricular Outflow Tract Name Value Normal LVOT 2D LVOT Diameter 2.2 cm LVOT Doppler LVOT Peak Velocity 1.3 m/s LVOT Mean Gradient 2 mmHg LVOT VTI 30 cm LVOT VTI/AV VTI Ratio 0.7 LVOT Stroke Volume 113 ml LVOT Stroke Index 48.82 ml/m2 Pulmonic Valve Name Value Normal PV Doppler PV Peak Velocity 1.48 m/s PV Mean Gradient 4 mmHg PV VTI 33 cm Mitral Valve Name Value Normal MV Doppler MV Peak Velocity 1.09 m/s MV Mean Gradient 2 mmHg MV VTI 46 cm MV Decel Hartley 333 cm/s2 MV PHT 38 ms MV Area (PHT) 5.8 cm2 4.0-5.0 MV Area (Cont Eq VTI) 2.5 cm2 MV Area Index (Cont Eq VTI) 1.06 cm2/m2 MV Diastolic Function MV E Peak Velocity 1 m/s MV A Peak Velocity 1 m/s MV E/A 1.2 MV (more content not included)... Normal [facility] Ambulatory ECG 12-LEADOrdered By: Fernanda Acuña on 10-09-2020 Atrial Rate [facility] P [place] [facility] P-R Interval [facility] Q-T Interval [facility] Q-T Interval (corrected) [facility] QRS Duration [facility] QTC Calculation (Bezet) [facility] T [place] [facility] Ventricular Rate [facility] Auto Diffon 09-15-2018 Basophils #/vol (Bld) 0.0 E3/mcL Normal 0.0-0.2 [facility] Comment on above: Order Comment: Order Added by Discern Expert. Performed By: #### 2 [id number] #### [employer] [address] [place] [address] 07752 Basophils/100 WBC (Bld) 0.6 % Normal 0.0-2.0 [facility] Comment on above: Order Comment: Order Added by Discern Expert. Performed By: #### 2 [id number] #### [employer] [address] [place] [address] 81762 Eos Absolute 0.1 E3/mcL Normal 0.0-0.7 [facility] Comment on above: Order Comment: Order Added by Discern Expert. Performed By: #### 2 [id number] #### [employer] [address] [place] [address] 06372 Eosinophils/100 WBC (Bld) 2.2 % Normal 0.0-11.0 [facility] Comment on above: Order Comment: Order Added by Discern Expert. Performed By: #### 2 [id number] #### [employer] [address] [place] [address] 77250 Lymphocytes #/vol (Bld) 1.9 E3/mcL Normal 1.2-3.4 [facility] Comment on above: Order Comment: Order Added by Discern Expert. Performed By: #### 2 [id number] #### [employer] [address] [place] [address] 33174 Lymphocytes/100 WBC (Bld) 31.0 % Normal 20.0-55.0 [facility] Comment on above: Order Comment: Order Added by Discern Expert. Performed By: #### 2 [id number] #### [employer] [address] [place] [address] [place] Absolute 0.8 E3/mcL High 0.0-0.7 [facility] Comment on above: Order Comment: Order Added by Discern Expert. Performed By: #### 2 [id number] #### [employer] [address] [place] [address] 56265 Monocytes/100 WBC (Bld) 13.2 % High 0.0-10.0 [facility] Comment on above: Order Comment: Order Added by Discern Expert. Performed By: #### 2 [id number] #### [employer] [address] [place] [address] 32912 Neutro Absolute 3.3 E3/mcL Normal 1.4-6.5 [facility] Comment on above: Order Comment: Order Added by Discern Expert. Performed By: #### 2 [id number] #### [employer] [address] [place] [address] 33374 Neutro Auto 53.0 % Normal 37.0-75.0 [facility] Comment on above: Order Comment: Order Added by Discern Expert. Performed By: #### 2 [id number] #### [employer] [address] [id number] BMPon 09-15-2018 Anion gap molar conc 10 mmol/L Normal 10-20 [facility] Comment on above: Performed By: #### 2 [id number] #### [employer] [address] [place] [address] Calcium mass conc 8.4 mg/dL Low 8.6-10.[address] [facility] Comment on above: Performed By: #### 2 [id number] #### [employer] [address] [place] [address] Chloride molar conc 105 mmol/L Normal 98-107 [facility] Comment on above: Performed By: #### 2 [id number] #### [employer] [address] [place] [address] CO2 molar conc 26.0 mmol/L Normal 21.0-32.0 [facility] Comment on above: Performed By: #### 2 [id number] #### [employer] [address] [place] [id number] Creatinine mass conc 1.1 mg/dL Normal 0.5-1.3 [facility] Comment on above: Performed By: #### 2 [id number] #### [employer] [address] [place] [id number] Glucose mass conc 136 mg/dL High 70-[address] [facility] Comment on above: Performed By: #### 2 [id number] #### [employer] [address] [place] [id number] Potassium molar conc 4.1 mmol/L Normal 3.5-5.3 [facility] Comment on above: Performed By: #### 2 [id number] #### [employer] [address] [place] [id number] Sodium molar conc 137 mmol/L Normal 136-[address] [facility] Comment on above: Performed By: #### 2 [id number] #### [employer] [address] [place] [address] Urea nitrogen mass conc 19 mg/dL Normal 6-23 [facility] Comment on above: Performed By: #### 2 [id number] #### [employer] [address] [place], [place] [id number] Urea nitrogen/Creatinine mass ratio 17.3 ratio Normal 5.4-30.0 [facility] Comment on above: Performed By: #### 2 [id number] #### [employer] [address] [place], [place] [id number] CBC w/ Auto Diffon 9 Erythrocyte distribution width Ratio (RBC) 14.9 % High 11.5-14.5 [facility] Comment on above: Performed By: #### 2 [id number] #### [employer] [address] [place] [address] Hematocrit Volume Fraction (Bld) 41.5 % Low 42.0-52.0 [facility] Comment on above: Performed By: #### 2 [id number] #### [employer] [address] [place] [address] Hemoglobin mass conc (Bld) 13.6 g/dL Normal 13.5-18.0 [facility] Comment on above: Performed By: #### 2 [id number] #### [employer] [address] [place] [address] MCH Entitic mass (RBC) 29.6 pg Normal 27.0-31.0 [facility] Comment on above: Performed By: #### 2 [id number] #### [employer] [address] [place] [address] MCHC mass conc (RBC) 32.8 g/dL Low 33.0-37.0 [facility] Comment on above: Performed By: #### 2 [id number] #### [employer] [address] [place], [place] [id number] MCV Entitic volume (RBC) 90.4 fL Normal 78.0-100.0 [facility] Comment on above: Performed By: #### 2 [id number] #### [facility] [employer] [address] [place] [address] Platelet mean volume Entitic volume (Bld) 10.8 fL Normal 7.4-11.0 [facility] Comment on above: Performed By: #### 2 [id number] #### [employer] [address] [place] [address] Platelets #/vol (Bld) 137 E3/mcL Normal 130-400 [facility] Comment on above: Performed By: #### 2 [id number] #### [employer] [facility] [place] [address] RBC #/vol (Bld) 4.59 E6/mcL Normal 3.90-6.10 [facility] Comment on above: Performed By: #### 2 [id number] #### [employer] [address] [place] [address] WBC #/vol (Bld) 6.2 E3/mcL Normal 3.6-11.0 [facility] Comment on above: Performed By: #### 2 [id number] #### [employer] [address] [place] [address] Glucose POCon 09-15-2018 Glucose mass conc 163 mg/dL High 70-[address] [facility] Comment on above: Performed By: #### 2 [id number] #### [employer] [address] [place] [address] Glucose mass conc 99 mg/dL Normal 70-[address] [facility] Comment on above: Performed By: #### 2 [id number] #### [employer] [address] [place] [address] Troponin-Ion 09-15-2018 Troponin I.cardiac mass conc 0.01 ng/mL Normal 0.00-0.03 [facility] Comment on above: Performed By: #### 2 [id number] #### [employer] [address] [place], [place] [id number] eGFRon 09-15-2018 GFR/1.73 sq M predicted among non-blacks MDRD vol rate/area (S/P/Bld) mL/min/{1.73_m2} Normal [facility] Comment on above: Order Comment: Order added by Discern Expert. Performed By: #### 2 [id number] #### [employer] [address] [place] [address] Auto Diffon 09-14-2018 Basophils #/vol (Bld) 0.0 E3/mcL Normal 0.0-0.2 [facility] Comment on above: Order Comment: Order Added by Discern Expert. Performed By: #### 2 [id number] #### [employer] [address] [place] [address] Basophils/100 WBC (Bld) 0.6 % Normal 0.0-2.0 [facility] Comment on above: Order Comment: Order Added by Discern Expert. Performed By: #### 2 [id number] #### [employer] [address] [place] [address] Eos Absolute 0.1 E3/mcL Normal 0.0-0.7 [facility] Comment on above: Order Comment: Order Added by Discern Expert. Performed By: #### 2 [id number] #### [employer] [address] [place] [address] Eosinophils/100 WBC (Bld) 1.7 % Normal 0.0-11.0 [facility] Comment on above: Order Comment: Order Added by Discern Expert. Performed By: #### 2 [id number] #### [employer] [address] [place] [address] Lymphocytes #/vol (Bld) 1.2 E3/mcL Normal 1.2-3.4 [facility] Comment on above: Order Comment: Order Added by Discern Expert. Performed By: #### 2 [id number] #### [employer] [address] [place] [address] Lymphocytes/100 WBC (Bld) 16.5 % Low 20.0-55.0 [facility] Comment on above: Order Comment: Order Added by Discern Expert. Performed By: #### 2 [id number] #### [employer] [address] [place] [address] [place] Absolute 0.8 E3/mcL High 0.0-0.7 [facility] Comment on above: Order Comment: Order Added by Discern Expert. Performed By: #### 2 [id number] #### [employer] [address] [place] [address] Monocytes/100 WBC (Bld) 11.1 % High 0.0-10.0 [facility] Comment on above: Order Comment: Order Added by Discern Expert. Performed By: #### 2 [id number] #### [employer] [place] [address] Neutro Absolute 5.1 E3/mcL Normal 1.4-6.5 [facility] Comment on above: Order Comment: Order Added by Discern Expert. Performed By: #### 2 [id number] #### [employer] [address] [place] [address] Neutro Auto 70.1 % Normal 37.0-75.0 [facility] Comment on above: Order Comment: Order Added by Discern Expert. Performed By: #### 2 [id number] #### [employer]reg[employer] [address] [place] [address] BMPon 09-14-2018 Anion gap molar conc 13 mmol/L Normal 10-20 [facility] Comment on above: Performed By: #### 2 [id number] #### [employer] [address] [place] [address] Calcium mass conc 9.2 mg/dL Normal 8.6-10.[address] [facility] Comment on above: Performed By: #### 2 [id number] #### [employer] [address] [place] [address] Chloride molar conc 105 mmol/L Normal 98-107 [facility] Comment on above: Performed By: #### 2 [id number] #### [facility] [employer] [address] [place] [address] CO2 molar conc 24.0 mmol/L Normal 21.0-32.0 [facility] Comment on above: Performed By: #### 2 [id number] #### [employer] [address] [place] [address] Creatinine mass conc 1.2 mg/dL Normal 0.5-1.3 [facility] Comment on above: Performed By: #### 2 [id number] #### [employer] [address] [place], [place] [id number] Glucose mass conc 129 mg/dL High 70-[address] [facility] Comment on above: Performed By: #### 2 [id number] #### [employer] [address] [place] [address] Potassium molar conc 3.9 mmol/L Normal 3.5-5.3 [facility] Comment on above: Performed By: #### 2 [id number] #### [employer] [address] [place] [address] Sodium molar conc 138 mmol/L Normal 136-[address] [facility] Comment on above: Performed By: #### 2 [id number] #### [employer] [address] [place] [address] Urea nitrogen mass conc 19 mg/dL Normal 6-23 [facility] Comment on above: Performed By: #### 2 [id number] #### [employer] [address] [place], [place] [id number] Urea nitrogen/Creatinine mass ratio 15.8 ratio Normal 5.4-30.0 [facility] Comment on above: Performed By: #### 2 [id number] #### [facility] [employer] [address] [place], [place] [id number] CBC w/ Auto Diffon 9 Erythrocyte distribution width Ratio (RBC) 15.2 % High 11.5-14.5 [facility] Comment on above: Performed By: #### 2 [id number] #### [employer] [address] [place], [place] [id number] Hematocrit Volume Fraction (Bld) 45.0 % Normal 42.0-52.0 [facility] Comment on above: Performed By: #### 2 [id number] #### [employer] [address] [place], [place] [id number] Hemoglobin mass conc (Bld) 15.0 g/dL Normal 13.5-18.0 [facility] Comment on above: Performed By: #### 2 [id number] #### [employer] [address] [place] [address] MCH Entitic mass (RBC) 29.8 pg Normal 27.0-31.0 [facility] Comment on above: Performed By: #### 2 [id number] #### [employer] [address] [place], [place] [id number] MCHC mass conc (RBC) 33.4 g/dL Normal 33.0-37.0 [facility] Comment on above: Performed By: #### 2 [id number] #### [employer] [address] [place] [id number] MCV Entitic volume (RBC) 89.4 fL Normal 78.0-100.0 [facility] Comment on above: Performed By: #### 2 [id number] #### [employer] [address] [place] [address] Platelet mean volume Entitic volume (Bld) 10.8 fL Normal 7.4-11.0 [facility] Comment on above: Performed By: #### 2 [id number] #### [employer] [address] [place] [id number] Platelets #/vol (Bld) 158 E3/mcL Normal 130-400 [facility] Comment on above: Performed By: #### 2 [id number] #### [employer] [address] [place] [id number] RBC #/vol (Bld) 5.04 E6/mcL Normal 3.90-6.10 [facility] Comment on above: Performed By: #### 2 [id number] #### [employer] [address] [place] [address] WBC #/vol (Bld) 7.2 E3/mcL Normal 3.6-11.0 [facility] Comment on above: Performed By: #### 2 [id number] #### [employer] [address] [place] [id number] [address] Head or Brain w/o Contras ton 09-14-2018 CT Head or Brain w/o Contrast Exam Date/Time: 09/14/2018 15:21 EDT Reason for Exam: Injury Report STUDY: CT Head or Brain w/o Contrast; 09/14/2018 3:21 pm INDICATION: Injury. COMPARISON: 11/28/2016 ACCESSION NUMBER(S): [id number] ORDERING CLINICIAN: Kirsty Nguyen TECHNIQUE: Volume acquisition through the brain with axial coronal and sagittal reformatted 5 mm images. No IV contrast. FINDINGS: INTRACRANIAL: The ventricles are midline in position. Moya-white matter differentiation is well maintained. There is no evidence of acute infarction or hemorrhage. There is no extra-axial mass or fluid collection. The basilar cisterns are patent. EXTRACRANIAL: The imaged paranasal sinuses are clear. The imaged mastoid air cells are clear. The calvarium is intact. IMPRESSION: 1. There is no evidence of an acute infarction or hemorrhage. FINAL REPORT Dictated: 09/14/2018 3:24 pm Radha Olivarez MD Signed (Electronic Signature): 09/14/2018 3:24 pm Signed by: Radha Olivarez MD Technologist: IZAIAH Nea [facility] CT Spine Cervical w/o Contra ston 09-14-2018 CT Spine Cervical w/o Contrast Exam Date/Time: 09/14/2018 15:22 EDT Reason for Exam: Trauma Report STUDY: CT Spine Cervical w/o Contrast; 09/14/2018 3:22 pm INDICATION: Trauma. COMPARISON: None. ACCESSION NUMBER(S): [id number] ORDERING CLINICIAN: Kirsty Nguyen TECHNIQUE: Axial CT images of the cervical spine are obtained. Axial, coronal and sagittal reconstructions are provided for review. FINDINGS: Status post anterior fixation of C4, C5 and C6. The hardware is intact. Fractures: There is no evidence for an acute fracture of the cervical spine. Vertebral Alignment: Within normal limits. Craniocervical Junction: The odontoid process and craniocervical junction are intact. Vertebrae/Disc Spaces: Cervical vertebral body heights well maintained. C5 vertebral body is obscured by artifact. There are degenerative changes disc bulges at C2-C3 and C3-C4. The lower cervical canal is obscured. Prevertebral/Paraspi nal Soft Tissues: The prevertebral and paraspinal soft tissues are unremarkable. IMPRESSION: Status post anterior fixation of C4 through C6. The hardware is intact. There is no evidence of acute fracture. FINAL REPORT Dictated: 09/14/2018 3:28 pm Radha Olivarez MD Signed (Electronic Signature): 09/14/2018 3:28 pm Signed by: Radha Olivarez MD Technologist: IZAIAH Nea [facility] Glucose POCon 09-14-2018 Glucose mass conc 132 mg/dL High 70-[address] [facility] Comment on above: Performed By: #### 2 [id number] #### [employer] [address] [place] [address] [id number] 09-14-2018 Hemoglobin A1c/Hemoglobin.total mass fraction (Bld) 6.9 % High 4.0-6.3 [facility] Comment on above: Performed By: #### 2 [id number] #### [employer] [address] [place] [address] Magnesiumon 09-14-2018 Magnesium mass conc 2.0 Int._Unit/L Normal 1.6-2.4 [facility] Comment on above: Performed By: #### 2 [id number] #### [employer] [address] [place] [address] PTon 09-14-2018 INR Coag RelTime (PPP) 1.0 {INR} Normal 0.9-1.1 [facility] Comment on above: Result Comment: INR Recommended Therapeutic ranges: Prophylaxis/treatment of DVT and PE..........2.0-3.0 Prevention of systemic embolism.................2.0-3.0 Mechanical prosthetic values........................2.5-3.5 CRITICAL VALUE.........................................> 4.0 NOTE: New methodology started 05/16/2018 Performed By: #### 2 [id number] #### [employer] [address] [place] [address] Prothrombin time (PT) Coag time (PPP) 11.8 second(s) Normal 9.7-12.7 [facility] Comment on above: Result Comment: NOTE : New reference range established on 05/16/2018 due to change in methodology. Performed By: #### 2 [id number] #### [employer] [address] [place] [address] PTTon 09-14-2018 aPTT Coag time (Bld) 32 second(s) Normal 28-38 [facility] Comment on above: Result Comment: NOTE :New reference range established 05/16/2018 due to change in methodology. Performed By: #### 2 [id number] #### [employer] [address] [place] [id number] TSHon 09-14-2018 Thyrotropin Qn 5.25 mcIU/mL Normal 0.30-5.60 [facility] Comment on above: Performed By: #### 2 [id number] #### [employer] [address] [place] [address] Troponin-Ion 09-14-2018 Troponin I.cardiac mass conc 0.02 ng/mL Normal 0.00-0.03 [facility] Comment on above: Performed By: #### 2 [id number] #### [employer] [address] [place] [address] UA Completeon 09-14-2018 Color Nom (U) Straw Normal Yellow [facility] Comment on above: Performed By: #### 2 [id number] #### [employer] [address] [place] [address] Glucose mass conc (U) Negative Normal Negative [facility] Comment on above: Performed By: #### 2 [id number] #### [employer] [place] [address] Ketones Ql (U) Negative Normal Negative [facility] Comment on above: Performed By: #### 2 [id number] #### [employer] [address] [place] [address] UA Blood Negative Normal Negative [facility] Comment on above: Performed By: #### 2 [id number] #### [employer] [address] [place] [address] UA Clarity Clear Normal Clear [facility] Comment on above: Performed By: #### 2 [id number] #### [employer] [address] [place] [id number] UA Hyal Cast 3-5 Abnormal 0-2 [facility] Comment on above: Performed By: #### 2 [id number] #### [employer] [address] [place] [id number] UA Leuk Est Negative Normal Negative [facility] Comment on above: Performed By: #### 2 [id number] #### [employer] [address] [place] [address] UA Mucous Trace Abnormal Trace [facility] Comment on above: Performed By: #### 2 [id number] #### [employer] [address] [place] [address] UA Nitrite Negative Normal Negative [facility] Comment on above: Performed By: #### 2 [id number] #### [employer] [address] [place] [address] UA pH 5.0 Normal 4.6-8.0 [facility] Comment on above: Performed By: #### 2 [id number] #### [employer] [address] [place] [address] UA Protein Negative Normal Negative [facility] Comment on above: Performed By: #### 2 [id number] #### [employer] [address] [place] [id number] UA Spec Grav 1.009 Normal 1.003-1.030 [facility] Comment on above: Performed By: #### 2 [id number] #### [employer] [address] [place] [id number] UA Urobilinogen Negative Normal [facility] Comment on above: Result Comment: Due to a manufacturing issue, low positive urobilinogen results may be fasely positive. Correlate with urine bilirubin and additional clinical/laboratory findings to assess the risk of hemolytic anemia or liver disease. If clinically indicated, repeat testing with an alternate method is available by contacting the laboratory within 24 hours. Performed By: #### 2 [id number] #### [employer] [address] [place] [id number] Urobilinogen Qn (U) Negative Normal Negative [facility] Comment on above: Performed By: #### 2 [id number] #### [employer]Kira Fregoso[employer] [address] [place] [address] XR Chest AP Portableon 09-14 XR Chest AP Portable Exam Date/Time: 09/14/2018 15:43 EDT Reason for Exam: Chest pain Report STUDY: XR Chest AP Portable; 09/14/2018 3:43 pm INDICATION: Chest pain. COMPARISON: 12/25/2016 ACCESSION NUMBER(S): [id number] ORDERING CLINICIAN: Kirsty Nguyen FINDINGS: CARDIOMEDIASTINAL SILHOUETTE: Cardiomediastinal silhouette is normal in size and configuration. LUNGS: Lungs are clear. ABDOMEN: No remarkable upper abdominal findings. BONES: No acute osseous changes. Status post fusion cervical spine Status post left shoulder rotator cuff repair IMPRESSION: No acute cardiopulmonary process. FINAL REPORT Dictated: 09/14/2018 4:17 pm Iva Vargas MD Signed (Electronic Signature): 09/14/2018 4:17 pm Signed by: Iva Vargas MD Technologist: [facility] XR Humerus Lefton 09-14-2018 XR Humerus Left Exam Date/Time: 09/14/2018 15:43 EDT Reason for Exam: Pain, Traumatic Report STUDY: XR Humerus Left; XR Shoulder Complete Left;; 09/14/2018 3:43 pm INDICATION: Pain, Traumatic. COMPARISON: None. ACCESSION NUMBER(S): [id number]; [id number] ORDERING CLINICIAN: Kirsty Nguyen FINDINGS: Five views left humerus, two views left shoulder: There is no fracture or dislocation. There is superior subluxation of the left humeral head consistent with a chronic rotator cuff tear or degeneration. There has been prior rotator cuff repair. There is degenerative change of the left acromioclavicular joint with narrowing sclerosis and spurring. There is a 1.4 cm calcified loose body along the inferior aspect of the left glenohumeral joint, medial to the proximal left humeral diaphysis. IMPRESSION: No acute bony abnormality left humerus and left shoulder. FINAL REPORT Dictated: 09/14/2018 4:18 pm Iva Vargas MD Signed (Electronic Signature): 09/14/2018 4:18 pm Signed by: Iva Vargas MD Technologist: [facility] XR Knee Complete Righton XR Knee Complete Right Exam Date/Time: 09/14/2018 15:43 EDT Reason for Exam: Pain, Traumatic Report STUDY: XR Knee Complete Right;; 09/14/2018 3:43 pm INDICATION: Pain, Traumatic. COMPARISON: None. ACCESSION NUMBER(S): [id number] ORDERING CLINICIAN: Kirsty Nguyen FINDINGS: Four views right knee: There is no fracture, dislocation or joint effusion. There is swelling anterior to the patella and infrapatellar tendon. IMPRESSION: No acute bony abnormality right knee, soft tissue swelling. FINAL REPORT Dictated: 09/14/2018 4:19 pm Iva Vargas MD Signed (Electronic Signature): 09/14/2018 4:19 pm Signed by: Iva Vargas MD Technologist: [facility] XR Shoulder Complete Lefton 09-14-2018 XR Shoulder Complete Left Exam Date/Time: 09/14/2018 15:43 EDT Reason for Exam: Pain, Traumatic Report STUDY: XR Humerus Left; XR Shoulder Complete Left;; 09/14/2018 3:43 pm INDICATION: Pain, Traumatic. COMPARISON: None. ACCESSION NUMBER(S): [id number]; [id number] ORDERING CLINICIAN: Kirsty Nguyen FINDINGS: Five views left humerus, two views left shoulder: There is no fracture or dislocation. There is superior subluxation of the left humeral head consistent with a chronic rotator cuff tear or degeneration. There has been prior rotator cuff repair. There is degenerative change of the left acromioclavicular joint with narrowing sclerosis and spurring. There is a 1.4 cm calcified loose body along the inferior aspect of the left glenohumeral joint, medial to the proximal left humeral diaphysis. IMPRESSION: No acute bony abnormality left humerus and left shoulder. FINAL REPORT Dictated: 09/14/2018 4:18 pm Iva Vargas MD Signed (Electronic Signature): 09/14/2018 4:18 pm Signed by: Iva Vargas MD Technologist: [facility] eGFRon 09-14-2018 GFR/1.73 sq M predicted among non-blacks MDRD vol rate/area (S/P/Bld) mL/min/{1.73_m2} [facility] Comment on above: Order Comment: Order added by Discern Expert. Performed By: #### 1 [id number] #### [employer] [address] [place] [address] Vital Signs Date Time Vital Sign Value Performing Clinician Facility 09-20-2024 09:15-0400 Body height 175.[address] Marycarmen Rodriguez DO Work Phone: [facility] 09-20-2024 09:15-0400 Body mass index (BMI) [Ratio] 35.6 kg/m2 Dr. Marycarmen Rodriguez DO Work Phone: [facility] 09-20-2024 09:15-0400 Body temperature 96.8 [degF] Dr. Marycarmen Rodriguez DO Work Phone: [facility] 09-20-2024 09:15-0400 Body weight 109.[address] Marycarmen Rodriguez DO Work Phone: [facility] 09-20-2024 09:15-0400 Diastolic blood pressure 77 mm[Hg] Dr. Marycarmen Rodriguez DO Work Phone: [facility] 09-20-2024 09:15-0400 Heart rate 66 /min Dr. Marycarmen Rodriguez DO Work Phone: [facility] 09-20-2024 09:15-0400 Respiratory rate 18 /min Dr. Marycarmen Rodriguez DO Work Phone: [facility] 09-20-2024 09:15-0400 SaO2% (BldA) [Mass fraction] 97 % Dr. Marycarmen Rodriguez DO Work Phone: [facility] 09-20-2024 09:15-0400 Systolic blood pressure 121 mm[Hg] Dr. Marycarmen Rodriguez DO Work Phone: [facility] 07-18-2024 06:00-0400 Body height 175.[address] Marycarmen Rodriguez DO Work Phone: [facility] 07-18-2024 06:00-0400 Body weight 104.[address] Marycarmen Rodriguez DO Work Phone: [facility] 07-18-2024 06:00-0400 Heart rate 69 /min Dr. Marycarmen Rodriguez DO Work Phone: [facility] 07-18-2024 06:00-0400 SaO2% (BldA) [Mass fraction] 97 % Dr. Marycarmen Rodriguez DO Work Phone: [facility] 07-03-2024 08:35-0500 Body mass index (BMI) [Ratio] 36.6 kg/m2 Dr. Marycarmen Rodriguez DO Work Phone: [facility] 07-03-2024 08:35-0500 Body temperature 97.5 [degF] Dr. Marycarmen Rodriguez DO Work Phone: [facility] 07-03-2024 08:35-0500 Body weight 109.[address] Marycarmen Rodriguez DO Work Phone: [facility] 07-03-2024 08:35-0500 Diastolic blood pressure 77 mm[Hg] Dr. Marycarmen Rodriguez DO Work Phone: [facility] 07-03-2024 08:35-0500 Heart rate 72 /min Dr. Marycarmen Rodriguez DO Work Phone: [facility] 07-03-2024 08:35-0500 Respiratory rate 20 /min Dr. Marycarmen Rodriguez DO Work Phone: [facility] 07-03-2024 08:35-0500 SaO2% (BldA) [Mass fraction] 96 % Dr. Marycarmen Rodriguez DO Work Phone: [facility] 07-03-2024 08:35-0500 Systolic blood pressure 116 mm[Hg] Dr. Marycarmen Rodriguez DO Work Phone: [facility] 04-17-2024 15:55-0500 Body height [address] Marycarmen Rodriguez DO Work Phone: [facility] 04-17-2024 15:55-0500 Body mass index (BMI) [Ratio] 36.9 kg/m2 Dr. Marycarmen Rodriguez DO Work Phone: [facility] 04-17-2024 15:55-0500 Body weight 110.[address] Marycarmen Rodriguez DO Work Phone: [facility] 04-17-2024 15:55-0500 Diastolic blood pressure 53 mm[Hg] Dr. Marycarmen Rodriguez DO Work Phone: [facility] 04-17-2024 15:55-0500 Heart rate 70 /min Dr. Marycarmen Rodriguez DO Work Phone: [facility] 04-17-2024 15:55-0500 Respiratory rate 18 /min Dr. Marycarmen Rodriguez DO Work Phone: [facility] 04-17-2024 15:55-0500 SaO2% (BldA) [Mass fraction] 94 % Dr. Marycarmen Rodriguez DO Work Phone: [facility] 04-17-2024 15:55-0500 Systolic blood pressure 91 mm[Hg] Dr. Marycarmen Rodriguez DO Work Phone: [facility] 03-27-2024 10:17-0500 Diastolic blood pressure 79 mm[Hg] Dr. Marycarmen Rodriguez DO Work Phone: [facility] 03-27-2024 10:17-0500 Heart rate 67 /min Dr. Marycarmen Rodriguez DO Work Phone: [facility] 03-27-2024 10:17-0500 Respiratory rate 18 /min Dr. Marycarmen Rodriguez DO Work Phone: [facility] 03-27-2024 10:17-0500 Systolic blood pressure 134 mm[Hg] Dr. Marycarmen Rodriguez DO Work Phone: [facility] 03-20-2024 08:28-0500 Body mass index (BMI) [Ratio] 37.5 kg/m2 Dr. Marycarmen Rodriguez DO Work Phone: [facility] 03-20-2024 08:28-0500 Body weight 112.[address] Marycarmen Rodriguez DO Work Phone: [facility] 03-20-2024 08:28-0500 Diastolic blood pressure 89 mm[Hg] Dr. Marycarmen Rodriguez DO Work Phone: [facility] 03-20-2024 08:28-0500 Heart rate 61 /min Dr. Marycarmen Rodriguez DO Work Phone: [facility] 03-20-2024 08:28-0500 Respiratory rate 18 /min Dr. Marycarmen Rodriguez DO Work Phone: [facility] 03-20-2024 08:28-0500 Systolic blood pressure 141 mm[Hg] Dr. Marycarmen Rodriguez DO Work Phone: [facility] 12-21-2022 07:51-0400 Body height 172.[address] Marycarmen Rodriguez Work Phone: [facility] 12-21-2022 07:51-0400 Body weight 85.[address] Marycarmen Rodriguez Work Phone: [facility] 12-18-2022 08:27-0400 Body mass index (BMI) [Ratio] 28.7 kg/m2 Dr. Marycarmen Rodriguez Work Phone: [facility] 12-15-2022 13:03-0400 Body mass index (BMI) [Ratio] 28.7 kg/m2 Dr. Marycarmen Rodriguez Work Phone: [facility] 12-15-2022 13:03-0400 Body weight 85.[address] Marycarmen Rodriguez Work Phone: [facility] 12-15-2022 13:03-0400 Diastolic blood pressure 92 mm[Hg] Dr. Marycarmen Rodriguez Work Phone: [facility] 12-15-2022 13:03-0400 Heart rate 72 /min Dr. Marycarmen Rodriguez Work Phone: [facility] 12-15-2022 13:03-0400 Respiratory rate 16 /min Dr. Marycarmen Rodriguez Work Phone: [facility] 12-15-2022 13:03-0400 Systolic blood pressure 156 mm[Hg] Dr. Marycarmen Rodriguez Work Phone: [facility] 10-13-2022 10:59-0400 Body height 172.72 cm Marycarmen [facility] 10-13-2022 10:59-0400 Body mass index (BMI) [Ratio] 25.4 kg/m2 [facility] 10-13-2022 10:59-0400 Body weight 75.74 kg [facility] 10-13-2022 10:59-0400 Diastolic blood pressure 75 mm[Hg] [facility] 10-13-2022 10:59-0400 Heart rate 65 /min [facility] 10-13-2022 10:59-0400 Respiratory rate 18 /min [facility] 10-13-2022 10:59-0400 SaO2% (BldA) [Mass fraction] 94 % [facility] 10-13-2022 10:59-0400 Systolic blood pressure 143 mm[Hg] [facility] 09-21-2022 15:30-0400 Body mass index (BMI) [Ratio] 34.7 kg/m2 [facility] 09-21-2022 15:27-0400 Body temperature 98 [degF] [facility] 09-21-2022 15:27-0400 Diastolic blood pressure 84 mm[Hg] [facility] 09-21-2022 15:27-0400 Heart rate 79 /min [facility] 09-21-2022 15:27-0400 Respiratory rate 17 /min [facility] 09-21-2022 15:27-0400 SaO2% (BldA) [Mass fraction] 96 % Marycarmen [facility] 09-21-2022 15:27-0400 Systolic blood pressure 143 mm[Hg] Marycarmen Jennifer [facility] 09-21-2022 06:25-0400 Body weight 103.6 kg Marycarmen Jennifer [facility] 09-19-2022 01:30-0400 Inhaled oxygen concentration 21 % Marycarmen [facility] 09-01-2022 09:59-0400 Diastolic blood pressure 68 mm[Hg] Marycarmen Jennifer [facility] 09-01-2022 09:59-0400 Heart rate 49 /min Marycarmen Jennifer [facility] 09-01-2022 09:59-0400 Systolic blood pressure 127 mm[Hg] Marycarmen [facility] 09-01-2022 09:57-0400 Body temperature 97.9 [degF] Marycarmen [facility] 09-01-2022 09:57-0400 Respiratory rate 18 /min Marycarmen [facility] 09-01-2022 09:57-0400 SaO2% (BldA) [Mass fraction] 93 % Marycarmen [facility] 09-01-2022 04:08-0400 Body mass index (BMI) [Ratio] 35.2 kg/m2 Marycarmen [facility] 09-01-2022 04:08-0400 Body weight 108.2 kg Marycarmen Jennifer [facility] 08-31-2022 11:42-0400 Body height 175.26 cm Marycarmen Jennifer [facility] 08-19-2022 10:01-0400 Body height 175.26 cm Marycarmen Jennifer [facility] 08-19-2022 10:01-0400 Body mass index (BMI) [Ratio] 35.4 kg/m2 Marycarmen [facility] 08-19-2022 10:01-0400 Body weight 109.03 kg Marycarmen Jennifer [facility] 08-19-2022 10:01-0400 Diastolic blood pressure 79 mm[Hg] Marycarmen [facility] 08-19-2022 10:01-0400 Heart rate 62 /min Marycarmen Rodriguez [facility] 08-19-2022 10:01-0400 Respiratory rate 18 /min Marycarmen Rodriguez [facility] 08-19-2022 10:01-0400 Systolic blood pressure 144 mm[Hg] Marycarmen Rodriguez [facility] 04-16-2022 12:43-0500 Body height 175.[address] Marycarmen Rodriguez Work Phone: [facility] 04-16-2022 12:43-0500 Body mass index (BMI) [Ratio] 35.2 kg/m2 Dr. Marycarmen Rodriguez Work Phone: [facility] 04-16-2022 12:43-0500 Body temperature 97 [degF] Dr. Marycarmen Rodriguez Work Phone: [facility] 04-16-2022 12:43-0500 Body weight 108.[address] Marycarmen Rodriguez Work Phone: [facility] 04-16-2022 12:43-0500 Diastolic blood pressure 78 mm[Hg] Dr. Marycarmen Rodriguez Work Phone: [facility] 04-16-2022 12:43-0500 Heart rate 66 /min Dr. Marycarmen Rodriguez Work Phone: [facility] 04-16-2022 12:43-0500 Respiratory rate 18 /min Dr. Marycarmen Rodriguez Work Phone: [facility] 04-16-2022 12:43-0500 SaO2% (BldA) [Mass fraction] 94 % Dr. Marycarmen Rodriguez Work Phone: [facility] 04-16-2022 12:43-0500 Systolic blood pressure 125 mm[Hg] Dr. Marycarmen Rodriguez Work Phone: [facility] 04-14-2022 10:27-0500 Body mass index (BMI) [Ratio] 35.2 kg/m2 Dr. Marycarmen Rodriguez Work Phone: [facility] 04-14-2022 10:27-0500 Body weight 108.[address] Marycarmen Rodriguez Work Phone: [facility] 04-14-2022 10:27-0500 Diastolic blood pressure 68 mm[Hg] Dr. Marycarmen Rodriguez Work Phone: [facility] 04-14-2022 10:27-0500 Heart rate 64 /min Dr. Marycarmen Rodriguez Work Phone: [facility] 04-14-2022 10:27-0500 Respiratory rate 18 /min Dr. Marycarmen Rodriguez Work Phone: [facility] 04-14-2022 10:27-0500 Systolic blood pressure 130 mm[Hg] Dr. Marycarmen Rodriguez Work Phone: [facility] 03-27-2022 13:25-0500 Body temperature 97.9 [degF] Dr. Marycarmen Rodriguez Work Phone: [facility] 03-27-2022 13:25-0500 Diastolic blood pressure 86 mm[Hg] Dr. Marycarmen Rodriguez Work Phone: [facility] 03-27-2022 13:25-0500 Heart rate 86 /min Dr. Marycarmen Rodriguez Work Phone: [facility] 03-27-2022 13:25-0500 Respiratory rate 14 /min Dr. Marycarmen Rodriguez Work Phone: [facility] 03-27-2022 13:25-0500 SaO2% (BldA) [Mass fraction] 96 % Dr. Marycarmen Rodriguez Work Phone: [facility] 03-27-2022 13:25-0500 Systolic blood pressure 134 mm[Hg] Dr. Marycarmen Rodriguez Work Phone: [facility] 01-07-2022 11:07-0400 Body mass index (BMI) [Ratio] 34.9 kg/m2 Dr. Marycarmen Rodriguez Work Phone: [facility] Work Phone: 01-07-2022 11:07-0400 Body temperature 97.4 [degF] Dr. Marycarmen Rodriguez Work Phone: [facility] Work Phone: 01-07-2022 11:07-0400 Body weight 107.[address] Marycarmen Rodriguez Work Phone: [facility] Work Phone: 01-07-2022 11:07-0400 Diastolic blood pressure 87 mm[Hg] Dr. aMrycarmen Rodriguez Work Phone: [facility] Work Phone: 01-07-2022 11:07-0400 Heart rate 60 /min Dr. Marycarmen Rodriguez Work Phone: [facility] Work Phone: 01-07-2022 11:07-0400 Respiratory rate 16 /min Dr. Marycarmen Rodriguez Work Phone: [facility] Work Phone: 01-07-2022 11:07-0400 SaO2% (BldA) [Mass fraction] 96 % Dr. Marycarmen Rodriguez Work Phone: [facility] Work Phone: 01-07-2022 11:07-0400 Systolic blood pressure 155 mm[Hg] Dr. Marycarmen Rodriguez Work Phone: [facility] Work Phone: 11-21-2021 10:24-0400 Body height 175.[address] Marycarmen Rodriguez Work Phone: [facility] Work Phone: 11-21-2021 10:24-0400 Body mass index (BMI) [Ratio] 34.9 kg/m2 Dr. Marycarmen Rodriguez Work Phone: [facility] Work Phone: 11-21-2021 10:24-0400 Body weight 107.[address] Marycarmen Rodriguez Work Phone: [facility] Work Phone: 11-21-2021 10:24-0400 Diastolic blood pressure 77 mm[Hg] Dr. Marycarmen Rodriguez Work Phone: [facility] Work Phone: 11-21-2021 10:24-0400 Heart rate 61 /min Dr. Marycarmen Rodriguez Work Phone: [facility] Work Phone: 11-21-2021 10:24-0400 Respiratory rate 18 /min Dr. Marycarmen Rodriguez Work Phone: [facility] Work Phone: 11-21-2021 10:24-0400 SaO2% (BldA) [Mass fraction] 97 % Dr. Marycarmen Rodriguez Work Phone: [facility] Work Phone: 11-21-2021 10:24-0400 Systolic blood pressure 138 mm[Hg] Dr. Marycarmen Rodriguez Work Phone: [facility] Work Phone: 11-16-2021 16:49-0400 Diastolic blood pressure 87 mm[Hg] Dr. Marycarmen Rodriguez Work Phone: [facility] Work Phone: 11-16-2021 16:49-0400 Heart rate 53 /min Dr. Marycarmen Rodriguez Work Phone: [facility] Work Phone: 11-16-2021 16:49-0400 Respiratory rate 16 /min Dr. Marycarmen Rodriguez Work Phone: [facility] Work Phone: 11-16-2021 16:49-0400 SaO2% (BldA) [Mass fraction] 93 % Dr. Marycarmen Rodriguez Work Phone: [facility] Work Phone: 11-16-2021 16:49-0400 Systolic blood pressure 117 mm[Hg] Dr. Marycarmen Rodriguez Work Phone: [facility] Work Phone: 11-16-2021 12:55-0400 Body mass index (BMI) [Ratio] 33.2 kg/m2 Dr. Marycarmen Rodriguez Work Phone: [facility] Work Phone: 11-16-2021 12:55-0400 Body temperature 97.6 [degF] Dr. Marycarmen Rodriguez Work Phone: [facility] Work Phone: 11-16-2021 12:55-0400 Body weight 102.[address] Marycarmen Rodriguez Work Phone: [facility] Work Phone: 09-16-2021 10:37-0400 Body height 175.[address] Marycarmen Rodriguez Work Phone: [facility] Work Phone: 09-16-2021 10:37-0400 Body mass index (BMI) [Ratio] 35.7 kg/m2 Dr. Marycarmen Rodriguez Work Phone: [facility] Work Phone: 09-16-2021 10:37-0400 Body weight 109.[address] Marycarmen Rodriguez Work Phone: [facility] Work Phone: 09-16-2021 10:37-0400 Diastolic blood pressure 69 mm[Hg] Dr. Marycarmen Rodriguez Work Phone: [facility] Work Phone: 09-16-2021 10:37-0400 Heart rate 50 /min Dr. Marycarmen Rodriguez Work Phone: [facility] Work Phone: 09-16-2021 10:37-0400 Respiratory rate 18 /min Dr. Marycarmen Rodriguez Work Phone: [facility] Work Phone: 09-16-2021 10:37-0400 Systolic blood pressure 122 mm[Hg] Dr. Marycarmen Rodriguez Work Phone: [facility] Work Phone: 08-01-2021 10:02-0400 Body mass index (BMI) [Ratio] 35.7 kg/m2 Dr. Marycarmen Rodriguez Work Phone: [facility] Work Phone: 08-01-2021 10:02-0400 Body weight 109.[address] Marycarmen Rodriguez Work Phone: [facility] Work Phone: 08-01-2021 10:02-0400 Diastolic blood pressure 81 mm[Hg] Dr. Marycarmen Rodriguez Work Phone: [facility] Work Phone: 08-01-2021 10:02-0400 Heart rate 59 /min Dr. Marycarmen Rodriguez Work Phone: [facility] Work Phone: 08-01-2021 10:02-0400 Respiratory rate 18 /min Dr. Marycarmen Rodriguez Work Phone: [facility] Work Phone: 08-01-2021 10:02-0400 SaO2% (BldA) [Mass fraction] 97 % Dr. Marycarmen Rodriguez Work Phone: [facility] Work Phone: 08-01-2021 10:02-0400 Systolic blood pressure 133 mm[Hg] Dr. Marycarmen Rodriguez Work Phone: [facility] Work Phone: 08-01-2021 10:02-0400 Body height 175.[address] Marycarmen Rodriguez Work Phone: [facility] Work Phone: 08-01-2021 10:02-0400 Body mass index (BMI) [Ratio] 35.7 kg/m2 Dr. Marycarmen Rodriguez Work Phone: [facility] Work Phone: 08-01-2021 10:02-0400 Body weight 109.[address] Marycarmen Rodriguez Work Phone: [facility] Work Phone: 08-01-2021 10:02-0400 Diastolic blood pressure 81 mm[Hg] Dr. Marycarmen Rodriguez Work Phone: [facility] Work Phone: 08-01-2021 10:02-0400 Heart rate 59 /min Dr. Marycarmen Rodriguez Work Phone: [facility] Work Phone: 08-01-2021 10:02-0400 Respiratory rate 18 /min Dr. Marycarmen Rodriguez Work Phone: [facility] Work Phone: 08-01-2021 10:02-0400 SaO2% (BldA) [Mass fraction] 97 % Dr. Marycarmen Rodriguez Work Phone: [facility] Work Phone: 08-01-2021 10:02-0400 Systolic blood pressure 133 mm[Hg] Dr. Marycarmen Rodriguez Work Phone: [facility] Work Phone: 06-10-2021 18:38-0500 Diastolic blood pressure 75 mm[Hg] Dr. Marycarmen Rodriguez Work Phone: [facility] Work Phone: 06-10-2021 18:38-0500 Heart rate 57 /min Dr. Marycarmen Rodriguez Work Phone: [facility] Work Phone: 06-10-2021 18:38-0500 Respiratory rate 14 /min Dr. Marycarmen Rodriguez Work Phone: [facility] Work Phone: 06-10-2021 18:38-0500 SaO2% (BldA) [Mass fraction] 96 % Dr. Marycarmen Rodriguez Work Phone: [facility] Work Phone: 06-10-2021 18:38-0500 Systolic blood pressure 121 mm[Hg] Dr. Marycarmen Rodriguez Work Phone: [facility] Work Phone: 06-10-2021 13:36-0500 Body mass index (BMI) [Ratio] 34 kg/m2 Dr. Marycarmen Rodriguez Work Phone: [facility] Work Phone: 06-10-2021 13:36-0500 Body temperature 97 [degF] Dr. Marycarmen Rodriguez Work Phone: [facility] Work Phone: 06-10-2021 13:36-0500 Body weight 104.[address] Marycarmen Rodriguez Work Phone: [facility] Work Phone: 05-19-2021 16:55-0500 Respiratory rate 16 /min Dr. Marycarmen Rodriguez Work Phone: [facility] Work Phone: 05-19-2021 14:43-0500 Body temperature 96.5 [degF] Dr. Marycarmen Rodriguez Work Phone: [facility] Work Phone: 05-19-2021 14:43-0500 Diastolic blood pressure 94 mm[Hg] Dr. Marycarmen Rodriguez Work Phone: [facility] Work Phone: 05-19-2021 14:43-0500 Heart rate 63 /min Dr. Marycarmen Rodriguez Work Phone: [facility] Work Phone: 05-19-2021 14:43-0500 SaO2% (BldA) [Mass fraction] 99 % Dr. Marycarmen Rodriguez Work Phone: [facility] Work Phone: 05-19-2021 14:43-0500 Systolic blood pressure 172 mm[Hg] Dr. Marycarmen Rodriguez Work Phone: [facility] Work Phone: 05-19-2021 14:42-0500 Body mass index (BMI) [Ratio] 34 kg/m2 Dr. Marycarmen Rodriguez Work Phone: [facility] Work Phone: 05-19-2021 14:42-0500 Body weight 104.[address] Marycarmen Rodriguez Work Phone: [facility] Work Phone: 12-26-2020 10:29-0400 Diastolic blood pressure 76 mm[Hg] Eladio Ingram MD Work Phone: [facility] 12-26-2020 10:29-0400 Systolic blood pressure 141 mm[Hg] Eladio Ingram MD Work Phone: [facility] 12-26-2020 10:24-0400 Body height 175.3 cm Eladio Ingram MD Work Phone: [facility] 12-26-2020 10:24-0400 Body mass index (BMI) [Ratio] 33.67 kg/m2 Eladio Ingram MD Work Phone: [facility] 12-26-2020 10:24-0400 Body weight 103.42 kg Eladio Ingram MD Work Phone: [facility] 12-26-2020 10:24-0400 Heart rate 59 /min Eladio Ingram MD Work Phone: [facility] 12-26-2020 10:24-0400 SaO2% (BldA) [Mass fraction] 95 % Eladio Ingram MD Work Phone: [facility] 10-09-2020 10:53-0400 Diastolic blood pressure 72 mm[Hg] Fernanda Acuña FORENSIC SPECIALIST Work Phone: [facility] 10-09-2020 10:53-0400 Systolic blood pressure 134 mm[Hg] Fernanda Schwjennifer FORENSIC SPECIALIST Work Phone: [facility] 10-09-2020 09:59-0400 Body mass index (BMI) [Ratio] 34.6 kg/m2 Fernanda Schwjennifer FORENSIC SPECIALIST Work Phone: [facility] 10-09-2020 09:59-0400 Body weight 106.28 kg Fernanda Acuña FORENSIC SPECIALIST Work Phone: [facility] 10-09-2020 09:59-0400 Heart rate 58 /min Fernanda Acuña FORENSIC SPECIALIST Work Phone: [facility] 10-09-2020 09:59-0400 Respiratory rate 16 /min Fernanda Acuña FORENSIC SPECIALIST Work Phone: [facility] 10-09-2020 09:59-0400 SaO2% (BldA) [Mass fraction] 94 % Fernanda Acuña FORENSIC SPECIALIST Work Phone: [facility] 12-17-2016 11:21-0400 BMI (Body Mass Index) 32.99 kg/m2 Eladio Ingram [facility] Work Phone: 12-17-2016 11:21-0400 BP Diastolic 82 mm[Hg] Eladio Ingram [facility] Work Phone: 12-17-2016 11:21-0400 BP Systolic 150 mm[Hg] Eladio Ingram [facility] Work Phone: 12-17-2016 11:21-0400 Height 175.3 cm Eladio Ingram [facility] Work Phone: 12-17-2016 11:21-0400 Pulse (Heart Rate) 70 /min Eladio Ingram [facility] Work Phone: 12-17-2016 11:040 Pulse Oximetry 97 % Elaido Ingram [facility] Work Phone: 12-17-2016 11:0400 Weight 101.33 kg Eladio Ingram [facility] Work Phone: Encounters Encounter Date Encounter Type Care Provider Facility Start: 09-29-2024 End: 09-29-[address] Marycarmen Rodriguez DO Work Phone: [facility] Work Phone: Start: 09-29-2024 End: 09-29-[address] Marycarmen Rodriguez DO -[facility] Work Phone: Start: 09-29-2024 End: 09-29-2024 ambulatory Marycarmen Rodriguez Facility:[facility] Start: 09-22-2024 End: 09-22-[address] Marycarmen Rodriguez DO Work Phone: [facility] Work Phone: Start: 09-22-2024 End: 09-22-2024 Patient encounter procedure Marni Horn MICA MACHINE OPERATOR-C -Sleep Lab Work Phone: Start: 09-22-2024 End: 09-22-2024 ambulatory Marycarmen Rodriguez Facility:[facility] Start: 09-20-2024 End: 09-20-[address] Marycarmen Rodriguez DO Work Phone: [facility] Work Phone: Start: 09-20-2024 End: 09-20-2024 Patient encounter procedure ELIAZAR Olivas -Laboratory Work Phone: Start: 09-20-2024 End: 09-20-2024 Patient encounter procedure ELIAZAR Olivas -[facility] Work Phone: Start: 09-20-2024 End: 09-20-[address] Marycarmen Rodriguez DO Work Phone: [facility] Work Phone: Start: 09-20-2024 End: 09-20-2024 [facility] Start: 08-03-2024 End: 08-03-[address] Marycarmen Rodriguez DO Work Phone: [facility] Work Phone: Start: 08-03-2024 End: 08-03-2024 Patient encounter procedure Marni Horn NP-C -Sleep Lab Work Phone: Start: 08-03-2024 End: 08-03-2024 [facility] Start: 07-18-2024 ambulatory [facility] Facility: [facility] Start: 07-18-2024 Non-patient / Non-visit Dr. Zen schultz DO -[facility] Start: 07-18-2024 End: 07-18-[address] Marycarmen Rodriguez DO Work Phone: [facility] Work Phone: Start: 07-18-2024 End: 07-18-2024 Patient encounter procedure Marni PRAKASHC -Pulmonary Services/Neurology Work Phone: Start: 07-17-2024 End: 07-18-[address] Marycarmen Rodriguez DO Work Phone: [facility] Work Phone: Start: 07-17-2024 End: 07-17-2024 Patient encounter procedure Marni Horn NP-C -Sleep Lab Work Phone: Start: 07-17-2024 End: 07-17-2024 ambulatory [facility] Facility:[facility] Start: 07-07-2024 End: 07-07-[address] Marycarmen Rodriguez DO Work Phone: [facility] Work Phone: Start: 07-07-2024 End: 07-07-2024 Patient encounter procedure Marni POOL -Sleep Lab Work Phone: Start: 07-07-2024 End: 07-07-2024 ambulatory [facility] Facility:[facility] Start: 07-03-2024 End: 07-03-2024 Patient encounter procedure Marni POOL -[facility] Work Phone: Start: 07-03-2024 End: 07-03-2024 ambulatory [facility] Facility:[facility] Start: 06-30-2024 End: 06-30-[address] Marycarmen Rodriguez DO Work Phone: [facility] Work Phone: Start: 06-30-2024 End: 06-30-[address] Marycarmen Cody, Ritesh Calvillo [facility] Start: 06-30-2024 End: 06-30-2024 ambulatory [facility] Facility:[facility] Start: 04-17-2024 End: 04-17-2024 Patient encounter procedure Gustabo POOL -[facility] Work Phone: Start: 04-17-2024 End: 04-17-2024 ambulatory [facility] Facility:[facility] Start: 04-17-2024 End: 04-17-2024 ambulatory [facility] Facility:[facility] Start: 03-27-2024 End: 03-27-[address] Jose Hay MD -[facility] Work Phone: Start: 03-27-2024 End: 03-27-2024 ambulatory [facility] Facility:[facility] Start: 03-23-2024 End: 03-23-2024 Patient encounter procedure Ritesh Laurent [facility] Start: 03-23-2024 End: 03-23-2024 ambulatory [facility] Facility:[facility] Start: 03-20-2024 End: 03-20-[address] Jose Hay MD -[facility] Work Phone: Start: 03-20-2024 End: 03-20-2024 ambulatory Marycarmen Rodriguez Facility:[facility] Start: 11-18-2023 End: 11-18-2023 ambulatory Marycarmen Rodriguez Facility:[facility] Start: 10-29-2023 End: 10-29-2023 ambulatory Marycarmen Rodriguez Facility:[facility] Start: 10-22-2023 ambulatory Marycarmen Rodriguez Facility: [facility] Start: 10-22-2023 End: 10-22-2023 ambulatory Marycarmen Jennifer Facility:[facility] Start: 10-12-2023 End: 10-12-2023 ambulatory George Ríos Facility:[facility] Start: 10-12-2023 End: 10-13-2023 [facility] Start: 05-07-2023 End: 05-07-2023 ambulatory [facility] Work Phone: Start: 05-07-2023 End: 05-07-2023 Patient encounter procedure [facility]-Ritesh Martini [facility] Start: 12-29-2022 Non-patient / Non-visit Dr. Ap Rodriguez Work Phone: [facility] Work Phone: Start: 12-28-2022 Non-patient / Non-visit Dr. Ap Rodriguez Work Phone: [facility] Start: 12-28-2022 End: 12-28-[address] Marycarmen Rodriguez Work Phone: [facility] Work Phone: Start: 12-28-2022 End: 12-28-[address] Marycarmen Rodriguez Work Phone: [facility]-Cardiovascula r Services Work Phone: Start: 12-21-2022 End: 12-21-2022 Admission to same day surgery center Dr. Marycarmen Rodriguez Work Phone: [facility]-Architecture Professor/Special Procedures Work Phone: Start: 12-21-2022 End: 12-21-[address] Marycarmen Rodriguez Work Phone: [facility] Work Phone: Start: 12-15-2022 End: 12-15-[address] Marycarmen Rodriguez Work Phone: [facility] Work Phone: Start: 12-15-2022 End: 12-15-[address] Marycarmen Rodriguez Work Phone: [facility]-Laboratory Work Phone: Start: 12-15-2022 End: 12-15-[address] Marycarmen Rodriguez Work Phone: [facility] Work Phone: Start: 10-16-2022 End: 10-16-2022 ambulatory Marycarmen Rodriguez [facility] Work Phone: Start: 10-16-2022 End: 10-16-2022 Patient encounter procedure Marycarmen SWAIN [facility]-Pulmonary Services/Neurology Start: 10-13-2022 End: 10-13-2022 ambulatory Marycarmen SWAIN [facility] Work Phone: Start: 10-13-2022 End: 10-13-2022 Patient encounter procedure Marycarmen SWAIN [facility] Start: 09-21-2022 Non-patient / Non-visit Marycarmen gifford [facility] Start: 09-20-2022 Non-patient / Non-visit Marycarmen gifford [facility] Start: 09-19-2022 Non-patient / Non-visit Marycarmen gifford [facility] Start: 09-18-2022 Non-patient / Non-visit Marycarmen gifford [facility] Start: 09-17-2022 End: 09-17-2022 Non-patient / Non-visit Marycarmen SWAIN [facility] Start: 09-17-2022 End: 09-21-2022 Evaluation and management of [facility] Start: 09-09-2022 Non-patient / Non-visit Marycarmen gifford [facility] Start: 09-01-2022 Non-patient / Non-visit Marycarmen gifford [facility] Start: 08-31-2022 End: 08-31-2022 Non-patient / Non-visit Marycarmen SWAIN [facility] Start: 08-31-2022 Non-patient / Non-visit Marycarmen gifford [facility] Start: 08-31-2022 End: 09-01-2022 Evaluation and management of inpatient [facility] Start: 08-31-2022 End: 09-01-2022 observation encounter Marycarmen [facility] Work Phone: Start: 08-19-2022 End: 08-19-2022 ambulatory Marycarmen [facility] Work Phone: Start: 08-19-2022 End: 08-19-2022 Patient encounter procedure Marycarmen Jennifer SWAIN [facility] Start: 08-11-2022 Non-patient / Non-visit Marycarmen gifford [facility] Start: 06-11-2022 End: 06-11-[address] Marycarmen Rodriguez Work Phone: [facility] Work Phone: Start: 06-11-2022 End: 06-11-[address] [facility]carmen [facility] Start: 04-21-2022 Non-patient / Non-visit Dr. Ap Rodriguez Work Phone: [facility] Start: 04-21-2022 End: 04-21-[address] Marycarmen Rodriguez Work Phone: [facility] Work Phone: Start: 04-21-2022 End: 04-21-[address] Marycarmen Rodriguez Work Phone: [facility]-Cardiovascula r Services Start: 04-16-2022 End: 04-16-[address] Marycarmen Rodriguze [facility] Start: 04-14-2022 End: 04-14-[address] Marycarmen Rodriguez Work Phone: [facility] Work Phone: Start: 04-14-2022 End: 04-14-[address] Marycarmen Rodriguez Work Phone: [facility] Start: 04-14-2022 End: 04-14-[address] Marycamren Rodriguez Work Phone: [facility] Start: 03-27-2022 End: 03-27-[address] Marycarmen Rodriguez Work Phone: [facility] Start: 01-20-2022 End: 01-20-[address] Marycarmen Rodriguez Work Phone[facility] Start: 01-07-2022 End: 01-07-[address] Marycarmen Rodriguez [facility] Start: 11-27-2021 Non-patient / Non-visit Dr. Ap Rodriguez Work Phone: [facility] Start: 11-26-2021 End: 11-26-[address] Marycarmen Rodriguez Work Phone: [facility]-Pulmonary Services/Neurology Start: 11-21-2021 End: 11-21-[address] Marycarmen Rodriguez Work Phone: [facility] Start: 11-16-2021 End: 11-16-2021 Emergency department patient visit Dr. Marycarmen Rodriguez Work Phone: [facility]-Emergency Department Start: 10-28-2021 End: 10-28-[address] Marycarmen Rodriguez Work Phone: [facility] Start: 09-16-2021 End: 09-16-[address] Marycarmen Rodriguez Work Phone: [facility] Start: 09-16-2021 End: 09-16-[address] Marycarmen Rodriguez Work Phone: [facility] Start: 08-15-2021 Non-patient / Non-visit Dr. Ap Rodriguez Work Phone: [facility] Start: 08-15-2021 Non-patient / Non-visit Dr. Ap Rodriguez Work Phone: [facility] Start: 08-15-2021 End: 08-15-[address] Marycarmen Rodriguez Work Phone: [facility]-Cardiovascula r Services Start: 08-01-2021 End: 08-01-[address] Marycarmen Rodriguez Work Phone: [facility] Start: 06-10-2021 End: 06-10-2021 Emergency department patient visit Dr. Marycarmen Rodriguez Work Phone: [facility]-Emergency Department Start: 05-19-2021 End: 05-19-2021 Emergency department patient visit Dr. Marycarmen Rodriguez Work Phone: [facility]-Emergency Department Start: 05-16-2021 End: 05-16-[address] 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 Comment on above: Chest pain, unspecif ied type (Primary Dx) Start: 12-26-2020 End: 12-30-2020 Orders Only Justa Euceda RN [facility] Office Start: 12-26-2020 End: 12-26-2020 Office outpatient visit 25 minutes Marycarmen Rodriguez DO Work Phone: [facility] Office Comment on above: Essential hypertensi on (Primary Dx); Atherosclerosis of [place] coronary artery with angina pectoris, unspecified whether [place] or transplanted heart (HCC); Coronary artery disease involving [place] coronary artery of [place] heart with angina pectoris (HCC); Mixed hyperlipidemia Start: 12-18-2020 ambulatory MIN [facility] Start: 10-15-2020 End: 10-16-2020 ambulatory MARYCARMEN CHRISTY [facility] Start: 10-15-2020 End: 10-15-2020 Subsequent hospital visit by physician Eladio Ingram MD Work Phone: [facility] Comment on above: Arrived Start: 10-10-2020 ambulatory FERNANDA ACUÑA [facility] Ambulatory Start: 10-09-2020 End: 10-09-2020 Orders Only Fernanda Acuña [facility] Work Phone: [facility] Office Comment on above: DEAN (dyspnea on exer tion) (Primary Dx) Start: 10-09-2020 End: 10-09-2020 Office outpatient new 45 minutes Fernanda Acuña CNP Work Phone: [facility] Office Comment on above: DEAN (dyspnea on exer tion); Essential hypertension; Type 2 diabetes mellitus without complication, without long-term current use of insulin (HCC); MATTHEW (obstructive sleep apnea); Coronary artery disease involving [place] coronary artery of [place] heart without angina pectoris Start: 10-04-2020 End: 10-04-2020 Orders Only Deisi March RN [facility] Office Comment on above: Shortness of breath (Primary Dx) Start: 12-17-2016 Office/outpatient vi sit, est, level 4 Eladio Ingram Work Phone: [facility] Start: 11-28-2016 End: 11-28-2016 Patient encounter procedure [facility] Procedures Date Procedure Procedure Detail Performing Clinician Start: 09-21-2022 Viral antigen assay Matilda SWAIN Start: 09-19-2022 CT of head without contrast Marycarmen SWAIN Start: 09-19-2022 MRI of cervical spine Tricia SWAIN Start: 09-17-2022 MRI of brain without contrast Marycarmen SWAIN Start: 09-17-2022 CT angiography of he ad and neck Marycarmen SWAIN Start: 09-17-2022 CT of head without contrast Marycarmen SWAIN Start: 09-17-2022 Plain chest X-ray Marycarmen SWAIN Start: 04-14-2022 Plain chest X-ray Dr. Tricia Rodriguez Work Phone: Start: 01-20-2022 CT of chest without contrast Dr. Marycarmen Rodriguez Work Phone: Start: 11-16-2021 Plain chest X-ray Dr. Tricia Rodriguez Work Phone: Start: 09-16-2021 Plain chest X-ray Dr. Tricia Rodriguez Work Phone: Start: 08-15-2021 Cardiovascular stres s test using pharmacologic stress agent Dr. Marycarmen Rodriguez Work Phone: Start: 05-19-2021 Computed tomography of abdomen and pelvis with contrast Dr. Marycarmen Rodriguez Work Phone: Start: 10-15-2020 TTE w or wo fol wcon,Doppler Eladio Ingram MD Work Phone: Start: 10-09-2020 Ecg routine ecg w/le ast 12 lds w/i&r Fernanda Silvia Acuña [employer] Work Phone: Start: 08-18-2018 History of percutane ous transluminal coronary angioplasty History of percutaneous transluminal coronary angioplasty Dr. 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 Alexandr Mcclain Start: 08-13-2017 History of placement of stent for coronary artery disease History of coronary artery stent placement Dr. 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 Procedure aborted. 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-WUTN-Uj and Stent-Mid RCA x 2 Multi Link Mini Vision Rx Stent 4.0 x 28 mm 01/21/2006 Plan of Treatment Date Care Activity Detail Author Start: 07-25-2024 Walking distance 6 minutes [facility] Start: 07-17-2024 Measurement of respiratory function [facility] Start: 12-21-2022 Patient discharge [facility] Start: 10-05-2022 Measurement of respiratory function [facility] Start: 09-21-2022 Patient discharge [facility] Start: 09-20-2022 Telepractice consultation [facility] Start: 09-18-2022 Following clinical pathway protocol [facility] Start: 09-17-2022 Aspiration precautions [facility] Start: 09-17-2022 Assessment of risk of venous thromboembolism [facility] Start: 09-17-2022 Cardiac monitoring [facility] Start: 09-17-2022 Care regimes management [facility] Start: 09-17-2022 Catheterization of vein [facility] Start: 09-17-2022 Continuous positive airway pressure ventilation treatment [facility] Start: 09-17-2022 Continuous pulse oximetry [facility] Start: 09-17-2022 Elevation of head of bed [facility] Start: 09-17-2022 Exercises [facility] Start: 09-17-2022 Fall prevention [facility] Start: 09-17-2022 Implementation of planned interventions [facility] Start: 09-17-2022 Inhalation therapy procedure [facility] Start: 09-17-2022 Insertion of catheter into peripheral vein [facility] Start: 09-17-2022 Introduction of urinary catheter [facility] Start: 09-17-2022 Measuring intake and output [facility] Start: 09-17-2022 Notification of physician [facility] Start: 09-17-2022 Oxygen therapy [facility] Start: 09-17-2022 End: 09-18-2022 Patient referral to dietitian [facility] Start: 09-17-2022 Providing care according to standard [facility] Start: 09-17-2022 Provision of activity privileges [facility] Start: 09-17-2022 Referral to occupational therapist [facility] Start: 09-17-2022 Referral to service [facility] Start: 09-17-2022 Speech therapy assessment [facility] Start: 09-17-2022 Tobacco use cessation education [facility] Start: 09-17-2022 [facility] Start: 09-17-2022 Admission procedure [facility] Start: 09-01-2022 Patient discharge [facility] Start: 08-31-2022 Patient referral [facility] Work Phone: Start: 08-31-2022 Following clinical pathway protocol [facility] Start: 08-31-2022 Pulse taking [facility] Start: 08-31-2022 Cardiac monitoring [facility] Start: 08-31-2022 Cardiac rehabilitation - phase 1 [facility] Start: 08-31-2022 Cardiac rehabilitation - phase 2 [facility] Start: 08-31-2022 Notification of physician [facility] Start: 08-31-2022 Oxygen therapy [facility] Start: 08-31-2022 Patient discharge [facility] Start: 08-31-2022 Taking patient vital signs [facility] Start: 08-31-2022 Vascular disease risk assessment [facility] Start: 08-31-2022 Vital signs measurements [facility] Start: 08-31-2022 End: 08-31-2022 [facility] Start: 08-31-2022 Admission procedure [facility] Start: 11-16-2021 [facility] Work Phone: Start: 01-10-2021 End: 01-10-2021 Admission to same day surgery center 01/10/2021 Surgery Cardiology Eladio Ingram MD [address] 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 [address] [place] [address] [facility] Procedural Care Unit Start: 01-01-2021 Influenza vaccination [facility] Start: 12-26-2020 End: 12-26-2020 Patient encounter procedure 12/26/2020 Office Visit Cardiology Marycarmen Rodriguez, [address] [place] [address] [place] [address] [phone] Eladio Ingram MD [address] [facility] [address] [place] [address] [phone] [facility] Start: 10-15-2020 End: 10-15-2020 Patient encounter procedure 10/15/2020 Appointment Cardiology Eladio Ingram MD [address] [facility] [address] [place] [address] [phone] [facility] Start: 10-09-2020 End: 10-09-2020 Patient encounter procedure 10/09/2020 Office Visit Cardiology Fernanda Acuña, [employer]IST [address] [place] [address] [phone] [facility] Start: 11-05-2017 Prostate specific antigen measurement PSA Level [facility] Start: 06-01-2017 HEMOGLOBIN A1C HEMOGLOBIN A1C [facility] Work Phone: Start: 06-01-2017 Hemoglobin A1c measurement A1C [facility] Start: 06-01-2017 Hemoglobin A1c/Hemoglobin.total mass fraction (Bld) HEMOGLOBIN A1C [facility] Work Phone: Start: 01-01-2017 SEQUENTIAL INFLUENZA VACCINE (#1) SEQUENTIAL INFLUENZA VACCINE (#1) [facility] Work Phone: Start: 12-17-2016 Ambulatory 12/17/2016 Office Visit Cardiology Eladio Ingram MD [address] [facility] [address] [place] [address] [phone] [facility] Start: 2010 ABDOMINAL AORTIC ULTRASOUND ABDOMINAL AORTIC ULTRASOUND [facility] Work Phone: Start: 2010 Fall risk assessment Falls Risk Assessment [facility] Start: 2010 PNEUMOCOCCAL VACCINE AGE 65+ (1 of 2 - PCV13) PNEUMOCOCCAL VACCINE AGE 65+ (1 of 2 - PCV13) [facility] Work Phone: Start: 2005 Zoster vacc, sc ZOSTER VACCINE [facility] Work Phone: Start: 08-01-1995 Administration of herpes zoster vaccine Zoster Vaccines (1 of 2) [facility] Start: 08-01-1995 Screening for malignant neoplasm of colon [facility] Start: 08-01-1963 Hepatitis C screening Hepatitis C Screening [facility] Start: 1957 COVID-19 Vaccine (1) COVID-19 Vaccine (1) [facility] Start: 08-01-1955 3 comp foot exam completed FOOT EXAM [facility] Work Phone: Start: 08-01-1955 Albumin Test strip detection limit <= 20 mg/L mass conc (U) URINE MICROALBUMIN [facility] Work Phone: Start: 08-01-1955 Diabetic foot examination Foot Exam [facility] Start: 08-01-1955 Microalbumin measurement, urine, quantitative Urine Microalbumin [facility] Start: 08-01-1955 Ophthalmic examination and evaluation OPHTHALMOLOGY EXAM [facility] Start: 08-01-1955 FOOT EXAM FOOT EXAM [facility] Work Phone: Start: 08-01-1955 OPHTHALMOLOGY EXAM OPHTHALMOLOGY EXAM [facility] Work Phone: Start: 08-01-1955 URINE MICROALBUMIN URINE MICROALBUMIN [facility] Work Phone: Start: 08-01-1951 Pneumococcal Vaccine: Age 65+ (1 of 2 - PPSV23) Pneumococcal Vaccine: Age 65+ (1 of 2 - PPSV23) [facility] Start: 1948 History and physical examination, annual for health maintenance Wellness Visit [facility] Start: 1945 Colonoscopy COLONOSCOPY [facility] Work Phone: Start: 1945 Tetanus vaccination Tetanus: Every 10yrs [facility] Start: 1945 Colonoscopy COLONOSCOPY [facility] Work Phone: Start: 1945 End: 1945 HEPATITIS C SCREENING HEPATITIS C SCREENING [facility] Work Phone: Start: 1945 End: 1945 TETANUS EVERY 10 YR TETANUS EVERY 10 YR [facility] Work Phone: End: 12-26-2021 Basic metabolic 2000 panel - Serum or Plasma Basic metabolic panel Lab Routine Atherosclerosis of [place] coronary artery with angina pectoris, unspecified whether [place] or transplanted heart (HCC) Essential hypertension 1 Occurrences starting 12/26/2020 until 12/26/2021 [facility] Comment on above: 1 Occurrences starting 12/26/2020 until 12/26/2021 Basic metabolic 2000 panel - Serum or Plasma Basic metabolic panel Lab Routine Atherosclerosis of [place] coronary artery with angina pectoris, unspecified whether [place] or transplanted heart (HCC) Essential hypertension 12/26/2020 11:28 AM EDT [facility] Basic metabolic 2008 panel with ionized calcium - Serum or Plasma [facility] End: 12-17-2017 Basic metabolic panel [AGGREGATE] Basic metabolic panel Routine MATTHEW (obstructive sleep apnea) Coronary artery disease involving [place] coronary artery of [place] heart without angina pectoris 1 Occurrences starting 12/17/2016 until 12/17/2017 [facility] Work Phone: Blood chemistry [facility] Catheterization of [facility] Catheterization of [facility] CBC W Auto Different ial panel - Blood [facility] End: 12-26-2021 Complete blood count with white cell differential, manual CBC and differential Lab Routine Atherosclerosis of [place] coronary artery with angina pectoris, unspecified whether [place] or transplanted heart (HCC) Essential hypertension 1 Occurrences starting 12/26/2020 until 12/26/2021 [facility] Work Phone: Comment on above: 1 Occurrences starting 12/26/2020 until 12/26/2021 Complete blood count with white cell differential, manual CBC and differential Lab Routine Atherosclerosis of [place] coronary artery with angina pectoris, unspecified whether [place] or transplanted heart (HCC) Essential hypertension 12/26/2020 11:28 AM EDT [facility] End: 01-10-2022 CT Angiogram Aorta Chest Abdomen Pelvis CT Angiogram Aorta Chest Abdomen Pelvis Imaging Routine Coronary artery disease involving [place] coronary artery of [place] heart with angina pectoris (HCC) 1 Occurrences starting 01/10/2021 until 01/10/2022 [facility] Work Phone: Comment on above: 1 Occurrences starting 01/10/2021 until 01/10/2022 End: 12-04-2021 Echocardiography Echocardiogram complete Echocardiography Routine Shortness of breath 1 Occurrences starting 10/04/2020 until 12/04/2021 [facility] Comment on above: 1 Occurrences starting 10/04/2020 until 12/04/2021 LEFT HEART CATH POSS IBLE PTCA/STENT LEFT HEART CATH POSSIBLE PTCA/STENT [facility] End: 12-17-2017 Magnesium Magnesium Routine MATTHEW (obstructive sleep apnea) Coronary artery disease involving [place] coronary artery of [place] heart without angina pectoris 1 Occurrences starting 12/17/2016 until 12/17/2017 [facility] Work Phone: Measurement of respiratory function [facility] Work Phone: Natriuretic peptide. B prohormone N-Terminal [Mass/volume] in Serum or Plasma [facility] Patient Education [facility] Work Phone: Patient referral [facility] Work Phone: [facility] Immunizations Immunization Date Immunization Notes Care Provider Fa [facility] 02-20-[address] Marycarmen Rodriguez Work Phone: [facility] 02-14-[address] Marycarmen Rodriguez Work Phone: [facility] 01-31-[address] Marycarmen Rodriguez Work Phone: [facility] 11-29-2016 HEMOGLOBIN A1C [facility] Work Phone: Payers Date Payer Category Payer Self-pay [id number] 2019 Unknown [id number] 1. [id number] 2019 Unknown [id number] 2012 Unknown [id number] 2.1 6.840.1.747096.3.249.13 2010 Medicare [id number] 2.16 .840.1.233223.3.249.13 2010 Medicare [id number] 1.2 .[id number] 2010 Medicare [id number] 2010 Medicare [id number] 1945 Unknown [id number] 2.16. 840.1.513358.3.579.2.594 1945 Unknown [id number] 2.16. 840.1.824302.3.579.2.902 1945 Unknown [id number] 2.16. 840.1.377533.3.579.2.903 1945 Unknown [id number] 2.16. 840.1.840733.3.579.2.903 1945 Unknown [id number] 2.16. 840.1.047555.3.579.2.903 1945 Unknown [id number] 2.16. 840.1.580335.3.579.2.903 1945 Unknown [id number] 2.16. 840.1.726965.3.579.2.903 1945 Unknown [id number] 2.16. 840.1.036512.3.579.2.903 1945 Unknown [id number] 2.16. 840.1.120515.3.579.2.903 1945 Unknown [id number] 2.16. 840.1.458550.3.579.2.903 Unknown [id number] 2.16.8 40.1.369260.3.579.2.462 Unknown [id number] 2.16.8 40.1.983145.3.579.2.462 Unknown [id number] 2.16.8 40.1.051111.3.579.2.462 Unknown [id number] 2.16.8 40.1.091222.3.579.2.462 Unknown [id number] 2.16.8 40.1.650163.3.579.2.462 Unknown [id number] 2.16.8 40.1.246824.3.579.2.462 Unknown [id number] 2.16.8 40.1.135745.3.579.2.462 Unknown [id number] 2.16.8 40.1.845877.3.579.2.462 Unknown [id number] 2.16.8 40.1.746569.3.579.2.462 Unknown [id number] 2.16.8 40.1.493137.3.579.2.462 Unknown [id number] 2.16.8 40.1.763765.3.579.2.462 Unknown [id number] 2.16.8 40.1.222692.3.579.2.462 Unknown [id number] 2.16.8 40.1.763829.3.579.2.462 Unknown [id number] 2.16.8 40.1.225096.3.579.2.462 Unknown [id number] 2.16.8 40.1.961745.3.579.2.462 Unknown [id number] 2.16.8 40.1.784737.3.579.2.462 Unknown [id number] 2.16.8 40.1.645500.3.579.2.462 Unknown [id number] 2.16.8 40.1.335700.3.579.2.462 Unknown [id number] 2.16.8 40.1.686561.3.579.2.462 Unknown [id number] 2.16.8 40.1.084219.3.579.2.462 Unknown [id number] 2.16.8 40.1.577183.3.579.2.462 Unknown [id number] 2.16.8 40.1.777987.3.579.2.462 Unknown [id number] 2.16.8 40.1.523924.3.579.2.462 Unknown [id number] 2.16.8 40.1.688927.3.579.2.462 Unknown [id number] 2.16.8 40.1.859606.3.579.2.462 Social History Date Type Detail Facility Start: 12-17-2016 End: 10-12-2023 Tobacco smoking status NHIS Former smoker [facility] Start: 12-17-2016 End: 10-09-2020 Cigarettes smoked current (pack per day) - Reported [facility] Work Phone: Start: 1945 Sex Assigned At Not on file [facility] Work Phone: Start: 12-17-2016 End: 10-09-2020 Tobacco use and exposure Never used [facility] Start: 12-17-2016 End: 01-10-2021 Alcohol intake Current non-drinker of alcohol (finding) [facility] Start: 03-10-2016 Tobacco Comment quit 25+ yrs ago [facility] Exposure to SARS-CoV -2 (event) Not sure [facility] Start: 08-01-2021 End: 12-21-2022 Tobacco smoking status NHIS Unknown if ever smoked [facility] Start: 01-12-2020 None [facility] Start: 01-12-2020 Spouse/ Signif icant Other [facility] Start: 11-18-2020 Non-smoker [facility] Start: 1945 Sex Assigned At Male W [facility] Start: 07-13-2024 End: 08-08-2024 Sex Male (finding) [facility] Medical Equipment Procedure Code Equipment Code Equipment Origin al Text Equipment Identifier Dates Stent 3.50 X 23 Xience [employer]pine Xpedition Rx - [id number] FDA Start: 01-04-2015 Drug-eluting cor onary artery stent, [id number] ajit-[id number] ()[id number] FDA Start: 08-31-2022 Femoral vessel s uture implantation set ()[id number] FDA Start: 08-31-2022 Goals Date Patient Goal Desired Activity /State Functional Status Date Assessment Result Facility 09-21-2022 Functional status Chair [facility] Work Phone: 09-20-2022 Functional status Assistive Ning lauro Rolling Walker [facility] Work Phone: 09-01-2022 Functional status Activity Ability Indepe ndent [facility] Work Phone: 08-31-2022 Functional status Ambulates [facility] Work Phone: Mental Status Date Assessment Result Facility 09-21-2022 Cognitive function Voice/Name [facility] Work Phone: 09-01-2022 Cognitive function Appropriate;Cooperativ e [facility] Work Phone: 11-16-2021 Cognitive function Voice/Name [facility] Work Phone: 06-10-2021 Cognitive function Level Of Cons ciousness Awake;Alert;Appropriate [facility] Work Phone: Clinical Notes 06-25-2020 to 07-18-2024 Note Date & Type Note Facility 07-18-2024 Procedure note [facility] 07-03-2024 Evaluation note Diagnosis Onset Date Resolution COPD (chronic obstructive pulmonary disease) chronic July 03, 2024 1:10pm Diastolic heart failure chronic [facility] 2024 1:10pm Obesity chronic July 03 1:10pm Obstructive sleep apnea chronic [facility] 2024 1:10pm COPD (chronic obstructive pulmonary disease) chronic September 20, 2024 10:13am Diastolic heart failure chronic [facility] 2024 10:13am Obesity chronic September 20, 2024 10:13am Obstructive sleep apnea chronic [facility] 2024 10:13am [facility] Work Phone: 1(764) 275-409012-16-2024 Evaluation note* Diagnosis Onset Date Resolution Status Admit Date DEAN (dyspnea on exertion) acute April 17, 2024 3:51pm Bilateral lower extremity edema 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lee April 17, 2024 3:51pm 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, stage 3 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 [place] April 17, 2024 3:51pm Coronary artery disease chronic D ecember 2023 3:51pm Essential hypertension chronic De cember 2023 3:51pm Hyperlipidemia chronic April 022023 3:51pm Obesity chronic April 17, 2024 3:51pm Type 2 diabetes mellitus without complications chronic April 022023 3:51pm COPD (chronic obstructive pulmonary disease) chronic July 03 1:10pm Diastolic heart failure chronic M 2024 1:10pm Obesity chronic July 03 1:10pm Obstructive sleep apnea chronic [facility] 2024 1:10pm [facility] Work Phone: 1(146) 313-762111-18-2024 Evaluation note* Diagnosis Onset Date Resolution Status Admit Date Bilateral lower extremity edema 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lee March 20, 2024 10:31am 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, stage 3 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 [place]lee March 20, 2024 10:31am Coronary artery disease chronic N ovember 2023 10:31am Essential hypertension chronic No vember 2023 10:31am Hyperlipidemia chronic March 032023 10:31am Obesity chronic March 20, 2024 10:31am Type 2 diabetes mellitus without complications chronic March 032023 10:31am DEAN (dyspnea on exertion) acute April 17, 2024 3:51pm Bilateral lower extremity edema 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lee April 17, 2024 3:51pm 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, stage 3 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 [place]lee April 17, 2024 3:51pm Coronary artery disease chronic D ecember 2023 3:51pm Essential hypertension chronic De cember 2023 3:51pm Hyperlipidemia chronic April 022023 3:51pm Obesity chronic April 17, 2024 3:51pm Type 2 diabetes mellitus without complications chronic April 022023 3:51pm COPD (chronic obstructive pulmonary disease) chronic July 03 1:10pm Diastolic heart failure chronic [facility] 2024 1:10pm Obesity chronic July 03 1:10pm Obstructive sleep apnea chronic arch 2024 1:10pm [facility] Work Phone: 1(600) 548-261106-13-2024 [facility] Medical Records Department [facility] [place] [address] Discharge Summary 10/14/23 0920 MR#: [id number] Acct: [id number] Name: ERIBERTO RICO Rep #: [id number] : 1945 78 From: Marycarmen Marlow DO PCP: Dr. Marycarmen Rodriguez DO Status:DIS EDMUND Location: [place] [address] Providers Date of Admission: 10/12/23 Date of Discharge: 10/13/23 Primary Care Physician: Dr. Marycarmen Rodriguez DO Consultations 10/13/23 05:09 Consult: Cardiology Routine Consulting Provider: Marcin Araujo Reason for Consult: chest pain EMERGENT Consult: No MD Notified: Yes Date Notified: 10/13/23 Time Notified: : Method of Notification: Text Reason For Visit: chest pain Diagnosis Discharge Diagnosis (1) Unstable angina: Status: Acute Code(s): I20.0 - Unstable angina (2) Presence of stent in coronary artery: Status: Acute Code(s): Z95.5 - Presence of coronary angioplasty implant and graft (3) Essential hypertension: Status: Chronic Code(s): I10 - Essential (primary) hypertension (4) Hyperlipidemia: Status: Chronic Code(s): E78.5 - Hyperlipidemia, unspecified Qualifiers: Hyperlipidemia type: unspecified Qualified Code(s): E78.5 - Hyperlipidemia, unspecified Plan 1. Noncardiac chest pain-musculoskeletal in nature #2 coronary artery disease #3 type 2 diabetes #4 essential hypertension #5 chronic kidney disease stage IIIa Medications at Discharge Home Medications aspirin 81 mg tablet,delayed release 81 mg PO DAILY@0800 health maintenance 01/21/17 mirtazapine 15 mg tablet (Remeron) 15 mg PO QHS sleep 09/21/18 cyanocobalamin (vitamin B-12) 1,000 mcg capsule 1,000 mcg PO DAILY vitamin ##0 06/01/19 magnesium oxide 400 mg (241.3 mg magnesium) tablet 800 mg PO DAILY SUPPLEMENT 08/01/21 potassium chloride 20 mEq tablet,extended release(part/cryst) 60 meq PO BID supplement 08/01/21 cetirizine 10 mg tablet 10 mg PO DAILY PRN Allergic Reaction 09/16/21 cholecalciferol (vitamin D3) 25 mcg (1,000 unit) tablet 25 mcg PO DAILY 09/16/21 fluoxetine 40 mg capsule 80 mg PO DAILY DEPRESSION 90 days #180 caps 09/16/21 metformin 500 mg tablet 500 mg PO BID DM 08/19/22 nitroglycerin 0.4 mg sublingual tablet 0.4 mg sublingual Q5-15M PRN CHEST PAIN #25 tabs 08/19/22 isosorbide mononitrate 60 mg tablet,extended release 24 hr 60 mg PO DAILY #30 tabs 10/13/22 atorvastatin 40 mg tablet 40 mg PO QHS CHOLESTEROL #90 tabs 11/04/22 pantoprazole 40 mg tablet,delayed release 40 mg PO DAILY GERD #90 tabs 12/15/22 furosemide 40 mg tablet 80 mg (2 x 40 mg) PO DAILY diuretic #180 tabs 03/24/23 clopidogrel 75 mg tablet [address] #90 tabs 07/07/23 carvedilol 6.25 mg tablet (Coreg) 6.25 mg PO BID #60 tabs 09/16/23 amlodipine 5 mg tablet 5 mg PO DAILY #30 tabs 09/24/23 losartan 100 mg tablet 100 mg PO DAILY #90 tabs 10/01/23 ranolazine 500 mg tablet,extended release,12 hr 500 mg PO BID take with food #60 tabs 10/01/23 acetaminophen 325 mg tablet 650 mg PO Q6H PRN Pain 1-02/0910/12/23 empagliflozin 25 mg tablet (Jardiance) 25 mg PO DAILY 10/12/23 spironolactone 50 mg tablet 50 mg PO DAILY 10/12/23 Hospital Course Operations None Procedures Cardiac catheterization Summary of Care Provided Minutes Spent on Discharge: 30 Hospital Course: This 78-year-old white male was seen in the emergency room at [facility] with complaints of intermittent chest pain over 48 hours. Patient has a history of coronary artery disease the past. Workup in the emergency room included a chest x-ray which was negative for acute pathology, patient's cardiac enzymes were unremarkable, patient's EKG did not show any ischemic pattern. Patient was placed in observation status on PCU, cardiac enzymes were repeated and these remain normal. Patient underwent a cardiac catheterization on 10/13/2023 which showed nonocclusive coronary disease. No intervention was required. Patient was seen and examined on 10/13/2023: On examination he appeared in good health and spirits. Vital signs as documented. Skin warm and dry and without overt rashes. Neck without JVD, neck was supple, trachea midline, thyroid was normal. Lungs clear bilaterally, normal air movement was noted. Heart exam notable for regular rhythm, normal sounds and absence of murmurs, rubs or gallops. Abdomen unremarkable and without evidence of organomegaly, masses, or abdominal aortic enlargement. Bowel sounds are present, abdomen is not distended. Extremities nonedematous, no cyanosis was noted, no clubbing was noted. Neuro: Cranial nerves II through XII are grossly intact, no focal motor deficits were noted, sensation to light touch and pinprick intact, motor exam 5/5 throughout. Psych: Patient is alert and oriented x3, he does not appear anxious or depressed, he does not appear agitated. Patient was discharged home in stable condition on 10/13/19 (more content not included)...[facility]06-11-2024 [facility] Medical Records Department [address] [place] [address] History Physical Exam 10/12/23 1802 MR#: [id number] Acct: [id number] Name: ERIBERTO RICO Rep #: [id number] : 1945 78 From: Jw Rock MD PCP: Dr. Marycarmen Rodriguez, DO Status:ADM EDMUND Location: [place] [address] HPI - General General Date of Admission: 10/12/23 Date of Service: 10/12/23 Chief Complaint: Chest pain HPI Narrative ERIBERTO RICO, is a 78 M with a history of COPD, hypertension and chronic kidney disease stage III as well as MATTHEW and type 2 diabetes and who presents with a few days history of worsening intermittent chest pain. Patient has had stress test in the recent past that were negative. Patient denies any shortness of breath, orthopnea or proximal nocturnal dyspnea. No report any lower extremity swelling. Patient describes pain in various ways including toe, fullness, heaviness and tingling and moves from the left side of his chest to the right and back again. [facility] Medical History Fatigue Syncope Left-sided weakness History of COVID-19 Presence of stent in coronary artery ( 08/31/22) Dyslipidemia Diabetes mellitus 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 Coronary artery disease Angina pectoris Abnormal PFT Chest heaviness Palpitations DEAN (dyspnea on exertion) Dizziness Leg pain Cough Exposure to COVID-19 virus Nonhealing nonsurgical wound with fat layer exposed Laceration without foreign body of scalp, subsequent encounter Acute left-sided weakness Essential hypertension CHF (congestive heart failure) History of melanoma Obesity (BMI 35.0-39.9 without comorbidity) CAD (coronary artery disease) 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.9) COPD (chronic obstructive pulmonary disease) TIA (transient ischemic attack) Obstructive sleep apnea 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, stage 3 Atherosclerotic heart disease [place] coronary artery w/angina pectoris Type 2 diabetes mellitus without complications Hyperlipidemia Obesity Home Medications ???Medication ???Instructions ???Recorded ???Last Taken ???Type aspirin 81 mg tablet,delayed 81 mg PO DAILY@0800 health 01/21/17 10/11/23 History release maintenance mirtazapine 15 mg tablet (Remeron) 15 mg PO QHS sleep 09/21/18 10/11/23 History cyanocobalamin (vitamin B-12) 1,000 mcg PO DAILY vitamin ##0 06/01/19 10/11/23 History 1,000 mcg capsule magnesium oxide 400 mg (241.3 mg 800 mg PO DAILY SUPPLEMENT 08/01/21 10/11/23 History magnesium) tablet potassium chloride 20 mEq 60 meq PO BID supplement 08/01/21 10/11/23 History tablet,extended release(part/cryst) cetirizine 10 mg tablet 10 mg PO DAILY PRN Allergic 09/16/21 10/11/23 History Reaction cholecalciferol (vitamin D3) [address] 09/16/21 10/11/23 History mcg (1,000 unit) tablet fluoxetine 40 mg capsule 80 mg PO DAILY DEPRESSION 90 days 09/16/21 10/11/23 History #180 caps metformin 500 mg tablet 500 mg PO BID DM 08/19/22 10/11/23 History nitroglycerin 0.4 mg sublingual 0.4 mg sublingual Q5-15M PRN CHEST 08/19/22 10/12/23 Rx tablet PAIN #25 tabs isosorbide mononitrate 60 mg 60 mg PO DAILY #30 tabs 10/13/22 10/11/23 Rx tablet,extended release 24 hr atorvastatin 40 mg tablet 40 mg PO QHS CHOLESTEROL #90 tabs 11/04/22 10/11/23 Rx pantoprazole 40 mg tablet,delayed 40 mg PO DAILY GERD #90 tabs 12/15/22 10/12/23 Rx release furosemide 40 mg tablet 80 mg (2 x 40 mg) PO DAILY 03/24/23 10/11/23 Rx diuretic #180 tabs clopidogrel 75 mg tablet [address] #90 tabs 07/07/23 10/11/23 Rx carvedilol 6.25 mg tablet (Coreg) 6.25 mg PO BID #60 tabs 09/16/23 10/11/23 Rx amlodipine 5 mg tablet 5 mg PO DAILY #30 tabs 09/24/23 10/11/23 Rx losartan 100 mg tablet 100 mg PO DAILY #90 tabs 10/01/23 10/11/23 Rx ranolazine 500 mg tablet,extended 500 mg PO BID take with food #60 10/01/23 10/11/23 Rx release,12 hr tabs acetaminophen 325 mg tablet 650 mg PO Q6H PRN Pain 1-02/0910/12/23 Unknown History empagliflozin 25 mg tablet 25 mg PO DAILY 10/12/23 10/11/23 History (Jardiance) spironolactone 50 mg tablet 50 mg PO DAILY 10/12/23 10/11/23 History Allergy/AdvReac Type Severity Reaction Status Date / Time No Known Allergies Allergy Verified 09/16/23 09:25 Family History Father Parkinsons disease Prostate cancer Mother Osteoporosis Surgical History Presence of coronary angioplasty implant and graft ( 08/31/22) History of tympanostomy tube placement History of percutaneous transluminal coronary angioplasty (08/18/18) History of herniorrhaphy Hx of cholecystectomy History of tonsillectomy History of prostatectomy Social History ...[facility]05-02-[address] Hay [facility] September 01, 2022 9:55am Note Date/Time September 01, 2022 8:37am [facility] Medical Records Department [address] [place] [address] Instructions for Home/Discharge Instructions 09/01/22 0835 MR#: [id number] Acct: [id number] Name: ERIBERTO RICO Rep #:[id number] : 1945 77 From: Jose Hay MD PCP: Dr. Marycarmen Rodriguez, DO Status:ADM EDMUND Discharge Instructions Diet Discharge Diet: Low fat / Low cholesterol Activity Discharge Activity: Return to Normal Activity Additional Activity Instructions:: No heavy lifting, bending or strenuous physical activity for 1 week Dressing / Incision Call your doctor if your incision/area has: Continuous Slow Oozing, Sudden Increased Bleeding, Increased Pain/ Swelling, Increased Redness and Swelling at the incision site Call your doctor if you observe: Fever of 101 or Higher Follow Up Care Please Follow Up With: Jose Hay MD When: 2-4 weeks Test Results: Test results from this visit will be discussed in further detail at your follow- up appointment, if applicable. Pending Tests Upon Discharge: Check CBC, CMP on 09/03/2022 Discharge Plan Admission Admit Date/Time: 08/31/22 11:40 Attending Provider: Jose Hay Primary Care Provider: Marycarmen Rodriguez Discharge Orders/Prescriptions Prescriptions: Continued fluoxetine 40 mg capsule 80 mg PO DAILY 90 Days Qty: 180 Label Comments: anxiety magnesium oxide 400 mg (241.3 mg magnesium) tablet 800 mg PO DAILY potassium chloride 20 mEq tablet,ER particles/crystals 60 meq PO BID Label Comments: supplement cetirizine 10 mg tablet 10 mg PO DAILY PRN (Reason: Allergic Reaction) cholecalciferol (vitamin D3) 25 mcg (1,000 unit) tablet 25 mcg PO DAILY glimepiride 4 mg tablet 4 mg PO BID metoprolol tartrate 25 mg tablet 25 mg PO BID nitroglycerin 0.4 mg tablet, sublingual 0.4 mg SUBLINGUAL Q5-15M PRN (Reason: CHEST PAIN) Qty: 25 3RF Label Comments: chest pain aspirin 81 MG tablet 81 mg PO DAILY@0800 Label Comments: health maintenance cyanocobalamin (vitamin B-12) 1,000 MCG capsule 1,000 mcg PO DAILY Qty: 0 Label Comments: vitamin pantoprazole 40 MG tablet 40 mg PO DAILY acetaminophen 325 MG tablet 650 mg PO Q6H PRN PRN (Reason: Pain 1-02/09) 0RF mirtazapine [Remeron] 15 mg tablet 15 mg PO QHS Label Comments: sleep atorvastatin 40 mg tablet 40 mg PO QHS Qty: 90 3RF spironolactone 25 mg tablet 25 mg PO DAILY Qty: 90 3RF Label Comments: fluid furosemide 40 mg tablet 80 mg PO DAILY Qty: 180 3RF Label Comments: Hold if systolic blood pressure less than 120 mmHg amlodipine 5 mg tablet 5 mg PO BID Qty: 60 11RF clopidogrel 75 mg tablet See Rx Instructions .ROUTE .COMPLEX Qty: 90 3RF Dose Instruction: TAKE 1 TABLET BY MOUTH ONCE DAILY FOR BLOOD THINNER Rx Instructions: TAKE 1 TABLET BY MOUTH ONCE DAILY FOR BLOOD THINNER Held metformin 500 mg tablet 500 mg PO BID Hold Instructions: Resume on 09/03/22. Discontinued isosorbide mononitrate 30 mg tablet extended release 24 hr 30 mg PO BID Qty: 180 3RF isosorbide mononitrate 60 mg tablet extended release 24 hr 60 mg PO BID Qty: 180 3RF Referrals / Follow Up: Marycarmen Rodriguez DO [Primary Care Provider] - Disposition Disposition (needs filled in before D/C Order can be placed): Home, Self Care 09/01/22 0955<Electronically signed by Jose Hay MD>Jose Hay MD CC: Dr. Marycarmen Rodriguez DO ~ Signed [facility] Work Phone: [phone] 148-494308-26-2021 Miscellaneous Notes* Assessment & Plan Note - Eladio Ingram MD - 12/26/2020 11:08 AM EDT Associated Problem(s): Hyperlipidemia He remains on high-dose, high potency statin therapy which he tolerates well. He assures me that his lipids are under good control. No changes were made today * Assessment & Plan Note - Eladio Ingram MD - 12/26/2020 11:08 AM EDT Associated Problem(s): Hypertension Eriberto's blood pressure was mildly elevated in the office however did improve on repeat determination. I reviewed his regimen and made no changes. * Assessment & Plan Note - Eladio Ingram MD - 12/26/2020 11:07 AM EDT Associated Problem(s): Coronary artery disease This gentleman with longstanding coronary disease status post multiple percutaneous interventions and stent implantation now presents with more accelerated angina. His symptoms are not classic however he feels that this is clearly his cardiac pain. I had a discussion with he and his and reviewed his most recent intervention from August 2018 at which time he had stand-alone balloon angioplastyof the circumflex stent restenosis. At this point we will proceed with repeat catheterization to define his anatomy and hopefully proceed with any necessary intervention. documented in this [id number] History of Present illness Narrative* Eladio Ingram MD - 12/26/2020 11:05 AM EDT I saw Eriberto Rico in follow up in the office on 12/26/20. Eriberto apparently has been doing poorly recently with significant increase in the frequency of his anginal episodes. The pain is usually exertional in nature and associated with shortness of breath. His symptoms do resolve with rest and he rarely requires nitroglycerin, but he has clearly worsened over the past several months. He has had no true resting anginal discomfort and no signs or symptoms of heart failure and he remains extremely compliant with his medical regimen. Review of Systems: Documented in Medical Record Physical Exam Vital Signs: Blood Pressure 141/76 (BP Location: Right arm, Patient Position: Sitting, BP Cuff Size: Adult) Pulse (Abnormal) 59 Height 5' 9 Weight 103.4 kg (228 lb) Oxygen Saturation 95% Body Mass Index 33.67 kg/m General: No acute distress, alert, and oriented x3. Skin: Normal turgor, well-hydrated, HEENT: Normocephalic,EOMI Neck: Supple, no bruits Cardiovascular: Regular rate and rhythm. No murmurs gallops or rubs. No JVD noted. No peripheral edema noted. Respiratory: Clear to auscultation and percussion, no rales, rhonchi or wheezes Abdominal: Soft, nontender, nondistended, without masses or bruits. Extremities : No clubbing or cyanosis. Pulses intact Neurological: Cranial nerves grossly intact. No focal neurological deficits noted. Psych: Normal mood and affect Allergy Information: I have reviewed the patient's allergies. Patient has no known allergies. Home Medications: Outpatient Medications as of 12/26/2020 Medication Sig aspirin 81 MG EC tablet Take 81 mg by mouth daily. atorvastatin (LIPITOR) 80 MG tablet TAKE 1 TABLET BY MOUTH NIGHTLY cloNIDine HCl (CATAPRES) 0.1 MG tablet Take 1 (one) tablet (0.1 mg total) by mouth 2 (two) times a day. clopidogrel (PLAVIX) 75 mg tablet Take 1 (one) tablet (75 mg total) by mouth daily. CYANOCOBALAMIN, VITAMIN B-12, (VITAMIN B12 ORAL) Take by mouth. ERGOCALCIFEROL, VITAMIN D2, (VITAMIN D2 ORAL) Take by mouth. furosemide (LASIX) 80 MG tablet Take 1 (one) tablet (80 mg total) by mouth daily. glimepiride (AMARYL) 1 MG tablet Take 1 mg by mouth daily. isosorbide mononitrate (IMDUR) 120 MG 24 hr tablet TAKE 1 TABLET BY MOUTH DAILY magnesium oxide (MAG-OX) 400 mg tablet Take 400 mg by mouth daily Two tablets daily (800 mg) . metoprolol tartrate (LOPRESSOR) 25 MG tablet Take 1 (one) tablet (25 mg total) by mouth 2 (two) times a day. (Patient taking differently: Take 12.5 mg by mouth 2 (two) times a day .) nitroGLYCERIN (NITROSTAT) 0.[address] 1 tablet (0.4 mg total) under the tongue every 5 (five) minutes as needed. pantoprazole (PROTONIX) 40 MG tablet Take 1 (one) tablet (40 mg total) by mouth 2 (two) times a day. (Patient taking differently: Take 40 mg by mouth daily .) potassium chloride SA (K-DUR,KLOR-CON) 20 MEQ tablet Take 3 (three) tablets (60 mEq total) by mouth2 (two) times a day. (Patient taking differently: Take 40 mEq by mouth 2 (two) times a day .) spironolactone (ALDACTONE) 50 MG tablet Take 1 (one) tablet (50 mg total) by mouth daily. venlafaxine (EFFEXOR-XR) 150 MG 24 hr capsule Take 1 capsule (150 mg total) by mouth daily with breakfast. EKG: Normal sinus rhythm with no abnormalities Assessment/Plan: Coronary artery disease This gentleman with longstanding coronary disease status post multiple percutaneous interventions and stent implantation now presents with more accelerated angina. His symptoms are not classic however he feels that this is clearly his cardiac pain. I had a discussion with he and his and reviewed his most recent intervention from August 2018 at which time he had stand-alone balloon angioplastyof the circumflex stent restenosis. At this point we will proceed with repeat catheterization to define his anatomy and hopefully proceed with any necessary intervention. Hypertension Eriberto's blood pressure was mildly elevated in the office however did improve on repeat determination. I reviewed his regimen and made no changes. Hyperlipidemia He remains on high-dose, high potency statin therapy which he tolerates well. He assures me that his lipids are under good control. No changes were made today * Kavita Howell MA - 12/26/2020 10:24 AM EDT Review of Systems Constitutional: Positive for malaise/fatigue. Negative for diaphoresis, weight gain and weight loss. HENT: Negative for hearing loss, nosebleeds and tinnitus. Eyes: Negative for blurred vision and visual disturbance. Cardiovascular: Positive for dyspnea on exertion. Negative for chest pain, claudication, cyanosis, irregular heartbeat, leg swelling, near-syncope, orthopnea, palpitations, paroxysmal nocturnal dyspnea and syncope. Respiratory: Negative for hemoptysis, shortness of breath and snoring. Endocrine: Negative for cold intolerance and heat intolerance. Hematologic/Lymphatic: Does not bruise/bleed easily. Skin: Negative for flushing, poor wound healing and rash. Musculoskeletal: Negative for back pain, muscle weakness and myalgias. Gastrointestinal: Negative for abdominal pain, change in bowel habit, melena, nausea and vomiting. Genitourinary: Negative for decreased libido and hematuria. Neurological: Negative for loss of balance and numbness. Psychiatric/Behavioral: Negative for memory loss. The patient is not nervous/anxious. documented in this [id number] Miscellaneous Notes* Assessment & Plan Note - Fernanda Acuña CNP - 10/09/2020 11:44 AM EDT Associated Problem(s): Coronary artery disease involving [place] coronary artery of [place] heart without angina pectoris Multiple previous cardiac catheterizations with intervention. Most recent cardiac caths were performed in 2018, August 03 at [place], and August 18 at [facility] in [place]. 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 The notes from the cath at [facility] indicate that they were able to get a wire across the the lesion and the circumflex was dilated. The note states If symptoms recur can consider double layer of stent in the anomalous LCx. Eriberto continues to take ASA, Plavix, high dose.high potency statin, Imdur (states Ranexa was previously ineffective), Lopressor, Aldactone. Eriberto feels that a cardiac cath would be helpful since his symptoms of fatigue, chest pressure, anddyspnea on exertion seem the same as before my other heart caths. Lexiscan stress 08/2020 demonstrated isolated PVC during recovery with no stress induced myocardial ischemia. ECHO 12/2019 demonstrated NL left ventricular function and size with ejection fraction of 65%. No evidence of diastolic dysfunction, no regional wall motion abnormalities, NL RV size and systolic function, valves essentially NL. Eriberto has an ECHO scheduled for next week. Discussed that Dr. Ingram will review the results from today's visit and the ECHO results to determine if he recommends a cardiac cath. Eriberto verbalizes understanding. I reviewed use of nitroglycerin and if he has unrelieved pain to call 911 or go to the nearest emergency department. * Assessment & Plan Note - Fernanda Acuña CNP - 10/09/2020 11:44 AM EDT Associated Problem(s): MATTHEW (obstructive sleep apnea) Known MATTHEW (obstructive sleep apnea) without CPAP use. * Assessment & Plan Note - Fernanda Acuña CNP - 10/09/2020 11:37 AM EDT Associated Problem(s): Diabetes mellitus (HCC) I do not have a recent A1C result. His labs dated 09/27/20, found in Care Everywhere, demonstrate a blood glucose of 121 mg/dl. He reports that he frequently has hypoglycemia and is drinking quite abit more regular soda to prevent and treat lows. He does not routinely check blood glucose level athome, takes his Amaryl at times without eating in the morning, and states he feels better when his blood glucose levels are higher. We had a long discussion about the impact of blood glucose control on cardiovascular outcomes as well as general overall feeling better. He was concerned that he had lost 10# fairly easily over the last month or so. He report quite a bit of polyuria and polydipsia during this time. I suspect the weight loss was related to hyperglycemia. He hasn't been checking his blood glucose levels routinely so it is difficult to tell. If he is experiencing frequent hypoglycemia, certainly he could have hyperglycemia but a reasonable A1C. I asked Eriberto to check his blood glucose levels prior to taking Amaryl. If he isn't going to eat breakfast, which is his normal, I asked him to take it instead with lunch to try and reduce the hypoglycemia frequency and intensity. I also asked Eriberto to stop drinking regular soda on a routine basis. * Assessment & Plan Note - Fernanda Acuña CNP - 10/09/2020 11:32 AM EDT Associated Problem(s): Hypertension Blood pressure mildly elevated upon presentation, it did come down after sitting. Eriberto admits thathe does forget some of his medications several times weekly and he then notices his blood pressure flucuates more. We discussed that taking medications as directed, on a rountine basis, will help to better regulate his blood pressure. He is lliving in a trailer while his new home is being built andhe states it is difficult to do anything on a schedule. He and his are eating more fast-food because they feel it is difficult to cook in the trailer. We discussed the impact of sodium intake onhis blood pressure as well as the lower leg edema. No changes made to medications today. I asked his to use reminders that he can readily see so that he can consistently take his medications to better assess how well they are controlling his blood pressure. We discussed that the elevated blood pressure may also be contributing to his feelings of fatigue, activity intolerance, and chest pressure. documented in this [id number] History of Present illness Narrative* Fernanda Acuña CNP - 10/09/2020 11:19 AM EDT [facility] [place] [address] [id number] Assessment & Plan: Hypertension Blood pressure mildly elevated upon presentation, it did come down after sitting. Eriberto admits thathe does forget some of his medications several times weekly and he then notices his blood pressure flucuates more. We discussed that taking medications as directed, on a rountine basis, will help to better regulate his blood pressure. He is lliving in a trailer while his new home is being built andhe states it is difficult to do anything on a schedule. He and his are eating more fast-food because they feel it is difficult to cook in the trailer. We discussed the impact of sodium intake onhis blood pressure as well as the lower leg edema. No changes made to medications today. I asked his to use reminders that he can readily see so that he can consistently take his medications to better assess how well they are controlling his blood pressure. We discussed that the elevated blood pressure may also be contributing to his feelings of fatigue, activity intolerance, and chest pressure. Diabetes mellitus (HCC) I do not have a recent A1C result. His labs dated 09/27/20, found in Care Everywhere, demonstrate a blood glucose of 121 mg/dl. He reports that he frequently has hypoglycemia and is drinking quite abit more regular soda to prevent and treat lows. He does not routinely check blood glucose level athome, takes his Amaryl at times without eating in the morning, and states he feels better when his blood glucose levels are higher. We had a long discussion about the impact of blood glucose control on cardiovascular outcomes as well as general overall feeling better. He was concerned that he had lost 10# fairly easily over the last month or so. He report quite a bit of polyuria and polydipsia during this time. I suspect the weight loss was related to hyperglycemia. He hasn't been checking his blood glucose levels routinely so it is difficult to tell. If he is experiencing frequent hypoglycemia, certainly he could have hyperglycemia but a reasonable A1C. I asked Eriberto to check his blood glucose levels prior to taking Amaryl. If he isn't going to eat breakfast, which is his normal, I asked him to take it instead with lunch to try and reduce the hypoglycemia frequency and intensity. I also asked Eriberto to stop drinking regular soda on a routine basis. MATTHEW (obstructive sleep apnea) Known MATTHEW (obstructive sleep apnea) without CPAP use. Coronary artery disease involving [place] coronary artery of [place] heart without angina pectoris Multiple previous cardiac catheterizations with intervention. Most recent cardiac caths were performed in 2018, August 03 at [facility], and August 18 at [facility] in [place]. 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 The notes from the cath at [facility] indicate that they were able to get a wire across the the lesion and the circumflex was dilated. The note states If symptoms recur can consider double layer of stent in the anomalous LCx. Eriberto continues to take ASA, Plavix, high dose.high potency statin, Imdur (states Ranexa was previously ineffective), Lopressor, Aldactone. Eriberto feels that a cardiac cath would be helpful since his symptoms of fatigue, chest pressure, anddyspnea on exertion seem the same as before my other heart caths. Lexiscan stress 08/2020 demonstrated isolated PVC during recovery with no stress induced myocardial ischemia. ECHO 12/2019 demonstrated NL left ventricular function and size with ejection fraction of 65%. No evidence of diastolic dysfunction, no regional wall motion abnormalities, NL RV size and systolic function, valves essentially NL. Eriberto has an ECHO scheduled for next week. Discussed that Dr. Ingram will review the results from today's visit and the ECHO results to determine if he recommends a cardiac cath. Eriberto verbalizes understanding. I reviewed use of nitroglycerin and if he has unrelieved pain to call 911 or go to the nearest emergency department. Subjective: Eriberto Rico is a 75 y.o. male seen in the office today for Chest Pain (SOB) HPI: Eriberto Rico is seen in the office today to re-establish care. He has been following at [facility] and [facility] for his cardiology care over the past 4 years. 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 Eriberto has long-standing coronary artery disease and his history is primarily obtained through records from [facility]. Eriberto is uncertain of many of the dates related to multiple tests and interventions he has had in the past 3 years. Eriberto states that he has noticed an increase in exercise intolerance over the past 3-4 weeks. 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 He states he did not take nitroglycerin as he did not have it with him and does not carry it routinely. The chest discomfort radiated across his chest but did not radiate to his neck/jaw, arms, or back. He denies lightheadedness, syncope or near syncope. Eriberto does have COPD and is a former. He is not using any inhalers for his COPD as he states they didn't help his symptoms. He denies orthopnea or PND but does have dyspnea on exertion which he thinks may be a little worse. He has chronic leg edema that usually resolves overnight and is worse as they day progresses. Histories: Past Medical History: Diagnosis Date Coronary artery disease Diabetes mellitus (HCC) Diastolic CHF (HCC) Hyperlipidemia Hypertension Lower leg edema Myocardial infarction (HCC) 2009 Peripheral vascular disease (HCC) Sleep apnea Stroke ([facility]) Testicle swelling Past Surgical History: Procedure Laterality Date CARDIAC CATHETERIZATION N/A 01/04/2015 Left Heart Cath,Stent, EF 60%; Eladio Ingram MD; [facility] [place] [facility] CARDIAC CATHETERIZATION N/A 01/28/2015 Left Heart Cath, EF 60%; Eladio Ingram MD; [facility] [place] [facility] CARDIAC CATHETERIZATION N/A 06/18/2015 Left Heart Cath, Right Upper Extremity Angiogram, EF 60%; Eladio Ingram MD; [facility] [place] [facility] CARDIAC CATHETERIZATION N/A 03/17/2016 Procedure: Left and Right Heart Cath Poss Stent; Surgeon: Eladio Ingram MD; Location: [facility] [place] [facility]; Service: CARDIAC CATHETERIZATION 03/22/2014 EF 60% CARDIAC CATHETERIZATION 06/29/2013 EF 60% CARDIAC CATHETERIZATION 09/08/2012 EF 55% CARDIAC CATHETERIZATION 03/22/2014 EF 60% CARDIAC CATHETERIZATION Right 10/15/2016 Procedure: Left Heart Cath Possible PTCA/Stent; Surgeon: Merritt Arthur MD; Location: [facility] [place] [facility]; Service: CHOLECYSTECTOMY CORONARY ANGIOPLASTY WITH STENT PLACEMENT 07/07/2013 Balloon/Pressure Wire/KENDALL proximal RCA CORONARY STENT PLACEMENT 01/04/2015 KENDALL RCA HERNIA REPAIR PROSTATE SURGERY SHOULDER ARTHROSCOPY SHOULDER SURGERY Family History Problem Relation Age of Onset Heart disease Paternal Grandfather Social History Tobacco Use Smoking status: Former Smoker Packs/day: 2.00 Years: 20.00 Pack years: 40.00 Smokeless tobacco: Never Used Tobacco comment: quit 25+ yrs ago Substance Use Topics Alcohol use: No Drug use: No Outpatient Medications as of 10/09/2020 Medication Sig aspirin 81 MG EC tablet Take 81 mg by mouth daily. atorvastatin (LIPITOR) 80 MG tablet TAKE 1 TABLET BY MOUTH NIGHTLY cloNIDine HCl (CATAPRES) 0.1 MG tablet Take 1 (one) tablet (0.1 mg total) by mouth 2 (two) times a day. clopidogrel (PLAVIX) 75 mg tablet Take 1 (one) tablet (75 mg total) by mouth daily. CYANOCOBALAMIN, VITAMIN B-12, (VITAMIN B12 ORAL) Take by mouth. ERGOCALCIFEROL, VITAMIN D2, (VITAMIN D2 ORAL) Take by mouth. furosemide (LASIX) 80 MG tablet Take 1 (one) tablet (80 mg total) by mouth daily. glimepiride (AMARYL) 1 MG tablet Take 1 mg by mouth daily. isosorbide mononitrate (IMDUR) 120 MG 24 hr tablet TAKE 1 TABLET BY MOUTH DAILY magnesium oxide (MAG-OX) 400 mg tablet Take 400 mg by mouth daily Two tablets daily (800 mg) . metoprolol tartrate (LOPRESSOR) 25 MG tablet Take 1 (one) tablet (25 mg total) by mouth 2 (two) times a day. nitroGLYCERIN (NITROSTAT) 0.[address] 1 tablet (0.4 mg total) under the tongue every 5 (five) minutes as needed. pantoprazole (PROTONIX) 40 MG tablet Take 1 (one) tablet (40 mg total) by mouth 2 (two) times a day. potassium chloride SA (K-DUR,KLOR-CON) 20 MEQ tablet Take 3 (three) tablets (60 mEq total) by mouth2 (two) times a day. spironolactone (ALDACTONE) 50 MG tablet Take 1 (one) tablet (50 mg total) by mouth daily. venlafaxine (EFFEXOR-XR) 150 MG 24 hr capsule Take 1 capsule (150 mg total) by mouth daily with breakfast. No Known Allergies Review of Systems Constitutional: Positive for diaphoresis and malaise/fatigue. Negative for weight loss. States had a 10 pound weight loss, then gained 4 pounds back over the past several weeks HENT: Negative for hearing loss, nosebleeds and tinnitus. Eyes: Negative for blurred vision and visual disturbance. Cardiovascular: Positive for chest pain, dyspnea on exertion and leg swelling. Negative for claudication, cyanosis, irregular heartbeat, near-syncope, orthopnea, palpitations, paroxysmal nocturnal dyspnea and syncope. Respiratory: Positive for shortness of breath. Negative for hemoptysis and snoring. Endocrine: Negative for cold intolerance and heat intolerance. Hematologic/Lymphatic: Does not bruise/bleed easily. Skin: Negative for flushing, poor wound healing and rash. Musculoskeletal: Negative for back pain, muscle weakness and myalgias. Gastrointestinal: Negative for abdominal pain, change in bowel habit, melena, nausea and vomiting. Genitourinary: Negative for decreased libido and hematuria. Neurological: Positive for light-headedness. Negative for loss of balance and numbness. Psychiatric/Behavioral: Negative for memory loss. The patient is not nervous/anxious. Objective: Physical Exam Vitals reviewed. Nursing note reviewed: BMI 34.6. Constitutional: Appearance: He is well-developed. He is obese. HENT: Head: Normocephalic. Nose: Nose normal. Mouth/Throat: Mouth: Mucous membranes are moist. Eyes: General: Lids are normal. Conjunctiva/sclera: Conjunctivae normal. Neck: Vascular: No carotid bruit or JVD. Cardiovascular: Rate and Rhythm: Normal rate and regular rhythm. Pulses: Normal pulses. Heart sounds: Normal heart sounds. No murmur heard. No friction rub. No gallop. Pulmonary: Effort: Pulmonary effort is normal. Breath sounds: Normal breath sounds. Abdominal: General: Bowel sounds are normal. Palpations: Abdomen is soft. There is no mass. Tenderness: There is no abdominal tenderness. Musculoskeletal: General: Normal range of motion. Right lower leg: Edema present. Left lower leg: Edema present. Comments: Trace to +1 bilateral lower leg edema Skin: General: Skin is warm. Findings: No rash. Neurological: Mental Status: He is alert and oriented to person, place, and time. Gait: Gait normal. Psychiatric: Behavior: Behavior normal. Vitals: Vitals: 10/09/20 0959 10/09/20 1053 BP: 144/77 134/72 BP Location: Left arm Patient Position: Sitting BP Cuff Size: Adult Pulse: (!) 58 Resp: 16 SpO2: 94% Weight: 106.3 kg (234 lb 4.8 oz) EKG Interpretation: Sinus rhythm with rate of 60, no ectopy, no acute changes. 50 minutes spent [id number] with patient Follow Up Ordered: Return for appointment as scheduled for follow up based on test results. Fernanda Acuña CNP * Deisi March RN - 10/09/2020 10:02 AM EDT Review of Systems Constitutional: Positive for diaphoresis, malaise/fatigue and weight gain. Negative for weight loss. HENT: Negative for hearing loss, nosebleeds and tinnitus. Eyes: Negative for blurred vision and visual disturbance. Cardiovascular: Positive for chest pain, dyspnea on exertion and leg swelling. Negative for claudication, cyanosis, irregular heartbeat, near-syncope, orthopnea, palpitations, paroxysmal nocturnal dyspnea and syncope. Respiratory: Positive for shortness of breath. Negative for hemoptysis and snoring. Endocrine: Negative for cold intolerance and heat intolerance. Hematologic/Lymphatic: Does not bruise/bleed easily. Skin: Negative for flushing, poor wound healing and rash. Musculoskeletal: Negative for back pain, muscle weakness and myalgias. Gastrointestinal: Negative for abdominal pain, change in bowel habit, melena, nausea and vomiting. Genitourinary: Negative for decreased libido and hematuria. Neurological: Positive for light-headedness. Negative for loss of balance and numbness. Psychiatric/Behavioral: Negative for memory loss. The patient is not nervous/anxious. documented in this [id number] NotePatient Outreach (COVAMN) ERIBERTO RICO ([id number]) 1945 M Date Time Provider Department 06/25/20 YAMILETS, ARIANNA HERNANDEZ During your visit today, we recorded the following information about you: Allergies As of Date: 06/25/2020 (No Known Allergies) Date Reviewed: 08/19/2018 Reviewed by: Alcira (Marcin) MARCIN Mcgraw - Fully Assessed Order(s):SARS-COVID VACCINE 1ST DOSE APPT [[id number]] Order #: [id number] FUTURE Prescriptions as of 06/25/2020 Sig: CLOPIDOGREL 75 MG TABLET Take 1 tablet by mouth once d* ATORVASTATIN 40 MG TABLET Take 1 tablet by mouth once d* ISOSORBIDE MONONITRATE ER 60 * Take 1 tablet by mouth once d* METOPROLOL TARTRATE 100 MG TA* Take 1 tablet by mouth twice * FUROSEMIDE 20 MG TABLET Take 1 tablet by mouth once d* MIRTAZAPINE 7.5 MG TABLET Take 1 tablet by mouth daily * SPIRONOLACTONE 50 MG TABLET Take 1 tablet by mouth once d* VENLAFAXINE ER 150 MG CAPSULE* Take 1 capsule by mouth once * PANTOPRAZOLE 20 MG TABLET,DEL* Take 1 tablet by mouth once d* Patient taking differently: Take 40 mg by mouth twice yudelka* BABY ASPIRIN ORAL Take by mouth. POTASSIUM CARBONATE MISC 20 mEq. NITROGLYCERIN 0.4 MG SUBLINGU* Place one(1) tablet on tongue* Problem List As Of Date 06/25/2020 Noted Resolved CORONARY ATHEROSCLER UNSPEC VESSEL [I25.10] More... Essential hypertension [I10] More... Mixed hyperlipidemia [E78.2] More... ESOPHAGEAL REFLUX [K21.9] More... 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] 08/15/2018 COPD (chronic obstructive pulmonary disease) (H*08/15/2018 SUSAN (acute kidney injury) (HCC) [N17.9] 08/15/2018 Coronary artery disease involving [place] smith*08/15/2018 Stented coronary artery [Z95.5] 08/15/2018 Letter Text Encounter Status:Closed by CHAPITO NAVARRETE on 06/28/20[facility] Evaluation note* Diagnosis Shortness of breath- [facility] Diagnosis DEAN (dyspnea on exertion)- Primary Other dyspnea and respiratory abnormality [facility] Diagnosis DEAN (dyspnea on exertion) Other dyspnea and respiratory abnormality Essential hypertension Unspecified essential hypertension Type 2 diabetes mellitus without complication, without long-term current use of insulin (HCC) MATTHEW (obstructive sleep apnea) Obstructive sleep apnea (adult) (pediatric) Coronary artery disease involving [place] coronary artery of [place] heart without angina pectoris [facility] Diagnosis Shortness of breath [facility] Diagnosis Essential hypertension- Primary Unspecified essential hypertension Atherosclerosis of [place] coronary artery with angina pectoris, unspecified whether [place] or transplanted heart (HCC) Mixed hyperlipidemia [facility]* Diagnosis Chest pain, unspecified type- Primary [facility] Diagnosis Coronary artery disease involving [place] coronary artery of [place] heart with angina pectoris (HCC)- Primary [facility] Diagnosis Onset Date Resolution Status Dizziness acute Atherosclerotic heart diseas e [place] coronary artery w/angina pectoris chronic CHF (congestive heart failure) chronic Essential hypertension chron ic History of coronary artery stent placement August 13, 2017 chronic Hyperlipidemia [facility] Work Phone: Evaluation note* Diagnosis Onset Date Resolution Status Dizziness acute Atherosclerotic heart diseas e [place] coronary artery w/angina pectoris chronic CHF (congestive heart failure) chronic Essential hypertension chron ic History of coronary artery stent placement August 13, 2017 chronic Hyperlipidemia chronic Dizziness acute DEAN (dyspnea on exertion) [place] Palpitations acute CAD (coronary artery disease) chronic CHF (congestive heart failure) chronic Essential hypertension chron ic Hyperlipidemia [facility] Work Phone: evaluation note* Diagnosis Onset Date Resolution Status Dizziness acute Atherosclerotic heart diseas e [place] coronary artery w/angina pectoris chronic CHF (congestive heart failure) chronic Essential hypertension chron ic History of coronary artery stent placement August 13, 2017 chronic Hyperlipidemia chronic Dizziness acute DEAN (dyspnea on exertion) [place] Palpitations acute CAD (coronary artery disease) chronic CHF (congestive heart failure) chronic Essential hypertension chron ic Hyperlipidemia chronic DEAN (dyspnea on exertion) [place] CAD (coronary artery disease) chronic CHF (congestive heart failure) chronic Essential hypertension chron ic Hyperlipidemia [facility] Work Phone: Evaluation note* Diagnosis Onset Date Resolution Status Dizziness acute DEAN (dyspnea on exertion) [place] Palpitations acute CAD (coronary artery disease) chronic CHF (congestive heart failure) chronic Essential hypertension chron ic Hyperlipidemia chronic DEAN (dyspnea on exertion) [place] CAD (coronary artery disease) chronic CHF (congestive heart failure) chronic Essential hypertension chron ic Hyperlipidemia [facility] Work Phone: Evaluation note* Diagnosis Onset Date Resolution Status Abnormal PFT acute 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.9) 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 sleep apnea 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 [place] COVID-19 acute DEAN (dyspnea on exertion) [place] Atherosclerotic heart diseas e [place] coronary artery w/angina pectoris chronic CHF (congestive heart failure) chronic Essential hypertension chron ic History of coronary artery stent placement August 13, 2017 chronic Hyperlipidemia chronic Abnormal PFT acute COVID-19 acute 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.9) 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 sleep apnea 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 [facility] Work Phone: Evaluation note* Diagnosis Onset Date Resolution Status COVID-19 acute DEAN (dyspnea on exertion) [place] Atherosclerotic heart diseas e [place] coronary artery w/angina pectoris chronic CHF (congestive heart failure) chronic Essential hypertension chron ic History of coronary artery stent placement August 13, 2017 chronic Hyperlipidemia chronic Abnormal PFT acute COVID-19 acute 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.9) 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 sleep apnea 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 [place] [facility] Work Phone: Evaluation note* Diagnosis Onset Date Resolution Status Angina pectoris chronic 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 chron ic Coronary artery disease 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 [place] Diabetes mellitus chronic Dyslipidemia chronic Essential hypertension chron ic Obesity [facility] Work Phone: Evaluation note* Diagnosis Onset Date Resolution Status Angina pectoris chronic 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 chron ic Coronary artery disease 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 [place] Diabetes mellitus chronic Dyslipidemia chronic Essential hypertension chron ic Obesity chronic Left-sided weakness acute Chest pain resolved Fatigue acute Syncope acute 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 artery disease 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 [place] Dyslipidemia chronic Essential hypertension chron ic [facility] Work Phone: Evaluation note* Diagnosis Onset Date Resolution Status Left-sided weakness acute Chest pain resolved Fatigue acute Syncope acute 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 Hay [facility] September 01, 2022 9:53am Note Date/Time September 01, 2022 9:51am [facility] Medical Records Department [address] [place] [address] [place] [address] Progress Note 09/01/22 0950 MR#: [id number] Acct: [id number] Name: ERIBERTO RICO Rep #:[id number] : 1945 77 From: Jose Hay MD PCP: Dr. Marycarmen Rodriguez, DO Status:ADM EDMUND Location: [place] [address] Progress Note Reports complete resolution of angina. Denies any complaints today. Right groin stable. No hematoma or bruit. Right radial pulse 2+. Mildly decreased platelet count noted. Repeat CBC in 2 days. Also repeat complete metabolic panel in 2 days. Discharge home. Follow-up as outpatient. 09/01/22 0953 <Electronically signed by Jose Hay MD> Jose Hay MD Cosigner Signature (if applicable): CC: ~ Signed [facility] Work Phone: Reason for referral (narrative)No reason for referral information availableWPremier [facility] Work Phone: Assessments Diagnosis MATTHEW (obstructive sleep apnea ) - Primary Obstructive sleep apnea (adult) (pediatric) Coronary artery disease invo lving [place] coronary artery of [place] heart without angina pectoris Summary Purpose Family History No Family History Records Found Relationship Condition Age at Onset Recorded Date/T attila Unknown Family History?- Unknown August 08, 2018 11:12pm Family History?- Unknown August 08, 2018 11:12pm Family History?- Unknown December 1:26pm Relationship Condition Age at Onset Recorded Date/T attila Unknown Family History?- Unknown August 08, 2018 10:12pm Family History?- Unknown August 08, 2018 10:12pm Family History?- Unknown December 12:26pm Relationship Condition Age at Onset Recorded Date/T attila father Parkinson's disease Unknown Malignant neoplasm of prostate Unknown mother Osteoporosis Unknown Advance Directives No Advanced Directives Records FoundDocuments on File Type Date Recorded Patient Head Buyer Tobacco Expl anation Advance Directives and Living Will Latest Code Status on File Code Status Date Activated Date Inactivated Comments Full Code - Unverified 11/29/2016 3:59 AM 11/29/2016 4:2 9 PM Full Code 10/15/2016 7:05 AM 10/15/2016 3:58 PM Full Code 10/14/2016 11:11 PM 10/15/2016 7:05 AM Full Code 03/17/2016 6:00 PM 03/18/2016 6:53 PM Full Code 03/17/2016 10:50 AM 03/17/2016 4:04 PM Documents on File Type Date Recorded Patient Head Buyer Tobacco Expl anation Advance Directives and Baileyin g Will 10/04/2020 12:00 AM Documents on File Type Date Recorded Patient Head Buyer Tobacco Expl anation Advance Directives and Living Will Latest Code Status on File Code Status Date Activated Date Inactivated Comments Full Code - Unverified 11/29/2016 3:59 AM 11/29/2016 4:2 9 PM Full Code 10/15/2016 7:05 AM 10/15/2016 3:58 PM Full Code 10/14/2016 11:11 PM 10/15/2016 7:05 AM Full Code 03/17/2016 6:00 PM 03/18/2016 6:53 PM Full Code 03/17/2016 10:50 AM 03/17/2016 4:04 PM Documents on File Type Date Recorded Patient Head Buyer Tobacco Expl anation Advance Directives and Livin g Will 10/15/2020 12:46 PM Documents on File Type Date Recorded Patient Head Buyer Tobacco Expl anation Advance Directives and Livin g Will 10/15/2020 12:46 PM Documents on File Type Date Recorded Patient Head Buyer Tobacco Expl anation Advance Directives and Livin g Will 01/10/2021 12:46 PM Latest Code Status on File Code Status Date Activated Date Inactivated Comments Full Code - Unverified 01/10/2021 11:13 AM 01/10/2021 3: 25 PM Full Code 01/10/2021 8:00 AM 01/10/2021 11:06 AM Full Code - Unverified 11/29/2016 3:59 AM 11/29/2016 4:2 9 PM Advance Directive Response Recorded Date/ Time Advance Directives No August 13 018 7:02am Living Will Yes June 10 4:44pm Power of Drencher Yes June 10, 2021 4:44pm Advance Directive Response Recorded Date/ Time Name of Medical Power of Drencher Jennie- November 16, 2021 1:06pm Advance Directives No August 13 018 7:02am Living Will Yes November 16, 2021 1:06pm Power of Drencher Yes November 16 1:06pm Advance Directive Response Recorded Date/ Time Advance Directives No August 13 018 6:02am Living Will Yes November 16, 2021 12:06pm Power of Drencher Yes November 16 12:06pm Advance Directive Response Recorded Date/ Time Advance Directives No August 13, 2 018 7:02am Living Will Yes November 16, 2021 1:06pm Power of Drencher Yes November 16 1:06pm Advance Directive Response Recorded Date/ Time Advance Directives on File Yes August 312022 7:47am Name of Medical Power of Drencher Mike escalera August 31, 2022 7:47am Advance Directives Yes August 31, 2022 7:47am Living Will Yes August 31, 2022 7: 47am Power of Drencher Yes August 31, 2022 7:47am Advance Directive Response Recorded Date/ Time Advance Directives on File Yes August 312022 7:47am Name of Medical Power of Drencher Mike escalera August 31, 2022 7:47am Advance Directives Yes August 31, 2022 7:47am Living Will No September 18, 2022 2:11am Power of Drencher No September 18, 2022 12:11am Advance Directive Response Recorded Date/ Time Advance Directives on File Yes August 312022 7:47am Name of Medical Power of Drencher Mike escalera August 31, 2022 7:47am Advance Directives on File No Augus t 2022 7:51am Name of Medical Power of Drencher MIKE RICO December 21, 2022 7:51am Advance Directives Yes December 21, 2022 7:51am Living Will Yes December 21 7:51am Power of Drencher Yes December 21 023 7:51am Advance Directive Response Recorded Date/ Time Advance Directives on File No Augus t 2022 7:51am Name of Medical Power of Drencher MIKE RICO December 21, 2022 7:51am Advance Directives Yes December 21, 2022 7:51am Living Will Yes December 21 7:51am Power of Drencher Yes December 21 023 7:51am Advance Directive Response Recorded Date/ Time Advance Directives Yes December 21, 2022 6:51am Living Will Yes December 21 6:51am Power of Drencher Yes December 21 023 6:51am Advance Directive Response Recorded Date/ Time Living Will No October 12, 2023 6:54pm Power of Drencher No October 11 6:54pm Advance Directives Yes December 21, 2022 7:51am Advance Directive Response Recorded Date/ Time Advance Directives Yes December 21, 2022 7:51am Reason for Referral Status Reason Specialty Diagnoses / Procedures Referred By Contact Referred To Contact New Request Cardiology Diagnoses Shortness of breath Procedures Echocardiogram complete Eladio Ingram MD [address] [facility] [address] [place] [address] Status Reason Specialty Diagnoses / Procedures Referred By Contact Referred To Contact Closed Cardiology Diagnoses DEAN (dyspnea on exertion) Procedures ECG 12 lead Fernanda Acuña, FORENSIC SPECIALIST [address] [place] [address] Specialty Diagnoses / Procedures Referred By Contac t Referred To Contact Radiology Diagnoses Coronary artery disease involving [place] coronary artery of [place] heart with angina pectoris (HCC) Procedures CT Angiogram Aorta Chest Abdomen Pelvis Eladio Ingram MD [address] [facility] [address] [place] [address] Referral ID Status Reason Start Date Expiration Date V isits Requested Visits Authorized [id number] New Request 01/10/2021 01/10/2022 1 1 Chief Complaint and Reason for Visit Chief Complaint R. LOWER LID LESION RLQ ABD PAIN bleeding from ear, chest pain OVERDUE FOR OV CHEST PAIN CHEST PAIN Reason for Visit Dizziness Atherosclerotic heart disease [place] coronary artery w/angina pectoris CHF (congestive heart failure) Essential hypertension History of coronary artery stent placement Hyperlipidemia Chief Complaint bleeding from ear, c hest pain OVERDUE FOR OV CHEST PAIN CHEST PAIN 6-8 WK F/U DYSPNEA Reason for Visit Dizziness Atherosclerotic heart disease [place] coronary artery w/angina pectoris CHF (congestive heart failure) Essential hypertension History of coronary artery stent placement Hyperlipidemia Dizziness DEAN (dyspnea on exertion) Palpitations CAD (coronary artery disease) CHF (congestive heart failure) Essential hypertension Hyperlipidemia Chief Complaint OVERDUE FOR OV CHEST PAIN CHEST PAIN 6-8 WK F/U DYSPNEA Reason for Visit Dizziness Atherosclerotic heart disease [place] coronary artery w/angina pectoris CHF (congestive heart failure) Essential hypertension History of coronary artery stent placement Hyperlipidemia Dizziness DEAN (dyspnea on exertion) Palpitations CAD (coronary artery disease) CHF (congestive heart failure) Essential hypertension Hyperlipidemia Chief Complaint OVERDUE FOR OV CHEST PAIN CHEST PAIN 6-8 WK F/U DYSPNEA CHEST PAIN 2 M FU E ORDERS Reason for Visit Dizziness Atherosclerotic heart disease [place] coronary artery w/angina pectoris CHF (congestive heart failure) Essential hypertension History of coronary artery stent placement Hyperlipidemia Dizziness DEAN (dyspnea on exertion) Palpitations CAD (coronary artery disease) CHF (congestive heart failure) Essential hypertension Hyperlipidemia DEAN (dyspnea on exertion) CAD (coronary artery disease) CHF (congestive heart failure) Essential hypertension Hyperlipidemia Chief Complaint CHEST PAIN CHEST PAIN 6-8 WK F/U DYSPNEA CHEST PAIN 2 M FU E ORDERS DYSPNEA DYSPNEA Reason for Visit Dizziness DEAN (dyspnea on exertion) Palpitations CAD (coronary artery disease) CHF (congestive heart failure) Essential hypertension Hyperlipidemia DEAN (dyspnea on exertion) CAD (coronary artery disease) CHF (congestive heart failure) Essential hypertension Hyperlipidemia Chief Complaint Dyspnea DEAN SORE THROAT, COUGH, FEVER, BODY ACHE 5 MO F/U 3 M FU DYSPNEA/SOB Reason for Visit Abnormal PFT 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.9) Obstructive sleep apnea COVID-19 DEAN (dyspnea on exertion) Atherosclerotic heart disease [place] coronary artery w/angina pectoris CHF (congestive heart failure) Essential hypertension History of coronary artery stent placement Hyperlipidemia Abnormal PFT COVID-19 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.9) Obstructive sleep apnea Chief Complaint SORE THROAT, COUGH, FEVER, BODY ACHE 5 MO F/U 3 M FU DYSPNEA/SOB Reason for Visit COVID-19 DEAN (dyspnea on exertion) Atherosclerotic heart disease [place] coronary artery w/angina pectoris CHF (congestive heart failure) Essential hypertension History of coronary artery stent placement Hyperlipidemia Abnormal PFT COVID-19 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.9) Obstructive sleep apnea Chief Complaint Amb Documentation 1 Y FU (PFM PT) INT LABS Reason for Visit Angina pectoris 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 Coronary artery disease Diabetes mellitus Dyslipidemia Essential hypertension Obesity Chief Complaint Amb Documentation 1 Y FU (PFM PT) INT LABS CAD Amb Documentation Coronary artery disease Reason for Visit Angina pectoris 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 Coronary artery disease Diabetes mellitus Dyslipidemia Essential hypertension Obesity Chief Complaint Amb Documentation 1 Y FU (PFM PT) INT LABS CAD Amb Documentation EKG Coronary artery disease Amb Documentation CVA, CP CVA, CP CVA, CP CVA, CP CVA, CP CVA, CP request by MICA MACHINE OPERATOR at [place] for angina L.L. E-ORDER SYNCOPE Reason for Visit Angina pectoris 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 Coronary artery disease Diabetes mellitus Dyslipidemia Essential hypertension Obesity Left-sided weakness Chest pain Fatigue Syncope Coronary artery disease Dyslipidemia Essential hypertension Chief Complaint CAD Amb Documentation EKG Coronary artery disease Amb Documentation CVA, CP CVA, CP CP ADMIT CVA, CP CVA, CP CVA, CP CVA, CP request by MICA MACHINE OPERATOR at [place] for angina L.L. E-ORDER SYNCOPE 2 M FU E-ORDER CP, CAD, DEAN Reason for Visit Left-sided weakness Chest pain Fatigue Syncope Coronary artery disease Dyslipidemia Essential hypertension Angina pectoris Bilateral lower extremity edema 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, stage 3 Coronary artery disease Essential hypertension Hyperlipidemia Type 2 diabetes mellitus without complications Chief Complaint Amb Documentation CVA, CP CVA, CP CP ADMIT CVA, CP CVA, CP CVA, CP CVA, CP request by MICA MACHINE OPERATOR at [place] for angina L.L. E-ORDER SYNCOPE 2 M FU E-ORDER CP, CAD, DEAN OBSTRUCTIVE SLEEP APNEA Amb Documentation Reason for Visit Left-sided weakness Chest pain Fatigue Syncope Coronary artery disease Dyslipidemia Essential hypertension Angina pectoris Bilateral lower extremity edema 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, stage 3 Coronary artery disease Essential hypertension Hyperlipidemia Type 2 diabetes mellitus without complications Chief Complaint Admit Date 5 M FU March 20, 2024 10:31am BP CHECK March 27, 2024 10:10am 4 W FU April 17, 2024 3:51pm F/U per [facility] July 03, 2024 1:10 pm MATTHEW, 42 pound weight gain July 07 7:46pm Reason for Visit Admit Date Bilateral lower extremity edema March 20, 2024 10:31am 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, stage 3 March 20, 2024 10:31am Coronary artery disease March 20, 2 024 10:31am Essential hypertension March 20 10:31am Hyperlipidemia March 20, 2024 10:31am Obesity March 20, 2024 10:31am Type 2 diabetes mellitus without complic ations March 20, 2024 10:31am DEAN (dyspnea on exertion) April 17, 2024 3:51pm Bilateral lower extremity edema April 17, 2024 3:51pm 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, stage 3 April 17, 2024 3:51pm Coronary artery disease April 17, 2 024 3:51pm Essential hypertension April 17 3:51pm Hyperlipidemia April 17, 2024 3:51pm Obesity April 17, 2024 3:51pm Type 2 diabetes mellitus without complic ations April 17, 2024 3:51pm COPD (chronic obstructive pulmonary dise ase) July 03, 2024 1:10pm Diastolic heart failure July 03, 2024 1:10pm Obesity July 03, 2024 1:10 pm Obstructive sleep apnea July 03, 2024 1:10pm Chief Complaint Admit Date BP CHECK March 27, 2024 10:10am 4 W FU April 17, 2024 3:51pm F/U per [facility] July 03, 2024 1:10 pm MATTHEW, 42 pound weight gain July 07 7:46pm MATTHEW July 17, 2024 10: 31am R06.00 - Dyspnea, unspecified July 6:23am R06.00 - Dyspnea, unspecified July 10:32am Reason for Visit Admit Date DEAN (dyspnea on exertion) April 17, 2024 3:51pm Bilateral lower extremity edema April 17, 2024 3:51pm 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, stage 3 April 17, 2024 3:51pm Coronary artery disease April 17, 2 024 3:51pm Essential hypertension April 17 3:51pm Hyperlipidemia April 17, 2024 3:51pm Obesity April 17, 2024 3:51pm Type 2 diabetes mellitus without complic ations April 17, 2024 3:51pm COPD (chronic obstructive pulmonary dise ase) July 03, 2024 1:10pm Diastolic heart failure July 03, 2024 1:10pm Obesity July 03, 2024 1:10 pm Obstructive sleep apnea July 03, 2024 1:10pm Chief Complaint Admit Date 4 W FU April 17, 2024 3:51pm F/U per [facility] July 03, 2024 1:10 pm MATTHEW, 42 pound weight gain July 07 7:46pm MATTHEW July 17, 2024 10: 31am R06.00 - Dyspnea, unspecified July 6:23am R06.00 - Dyspnea, unspecified July 10:32am Chief Complaint Admit Date 4 W FU April 17, 2024 3:51pm F/U per [facility] July 03, 2024 1:10 pm MATTHEW, 42 pound weight gain July 07 7:46pm MATTHEW July 17, 2024 10: 31am R06.00 - Dyspnea, unspecified July 6:23am R06.00 - Dyspnea, unspecified July 10:32am MATTHEW August 03, 2024 11:4 2am Chief Complaint Admit Date F/U per [facility] July 03, 2024 1:10 pm MATTHEW, 42 pound weight gain July 07 7:46pm MATTHEW July 17, 2024 10: 31am R06.00 - Dyspnea, unspecified July 6:23am R06.00 - Dyspnea, unspecified July 10:32am MATTHEW August 03, 2024 11:4 2am 3 M FU September 20, 2024 10:13 am Reason for Visit Admit Date COPD (chronic obstructive pulmonary dise ase) July 03, 2024 1:10pm Diastolic heart failure July 03, 2024 1:10pm Obesity July 03, 2024 1:10 pm Obstructive sleep apnea July 03, 2024 1:10pm COPD (chronic obstructive pulmonary dise ase) September 20, 2024 10:13am Diastolic heart failure September 20, 2024 1 0:13am Obesity September 20, 2024 10:13 am Obstructive sleep apnea September 20, 2024 1 0:13am Chief Complaint Admit Date F/U per [facility] July 03, 2024 1:10 pm MATTHEW, 42 pound weight gain July 07 7:46pm MATTHEW July 17, 2024 10: 31am R06.00 - Dyspnea, unspecified July 6:23am R06.00 - Dyspnea, unspecified July 10:32am MATTHEW August 03, 2024 11:4 2am 3 M FU September 20, 2024 10:13 am INT LAB ORDERS September 20, 2024 11:56 am TRIAL [facility] September 22, 2024 11:00 am Additional Source Comments (unrecognized sect ion and content) No Status Records FoundNo Status Records FoundNo Status Records FoundNo Status Records FoundNo Status Records FoundNo Status Records FoundNo Status Records Found INFORMATION SOURCE (unrecogn ized section and content) DATE CREATED AUTHOR 09/24/2018 [facility] DATE CREATED AUTHOR AUTHOR'S ORGANIZ ATION 12/20/2020 [facility] DATE CREATED AUTHOR AUTHOR'S ORGANIZ ATION 01/11/2021 [facility] DATE CREATED AUTHOR AUTHOR'S ORGANIZ ATION 02/28/2021 [facility] DATE CREATED AUTHOR AUTHOR'S ORGANIZ ATION 04/20/2021 [facility] DATE CREATED AUTHOR AUTHOR'S ORGANIZ ATION 06/22/2021 [facility] DATE CREATED AUTHOR AUTHOR'S ORGANIZ ATION 10/07/2024 [facility] Reason for Visit (unrecogniz ed section and content) Reason Comments Chest Pain SOB Status Reason Specialty Diagnoses / Procedures Referred By Contact Referred To Contact Closed Cardiology Diagnoses DEAN (dyspnea on exertion) Procedures ECG 12 lead Fernanda Acuña, FORENSIC SPECIALIST [address] [place] [address] Status Reason Specialty Diagnoses / Procedures Referre d By Contact Referred To Contact Closed Cardiology Diagnoses Shortness of breath Procedures Echocardiogram complete w contrast Echocardiogram complete Eladio Ingram MD [address] [place] [address] Reason Comments Initial Visit (Intake) Specialty Diagnoses / Procedures Referred By Contac t Referred To Contact Cardiology Diagnoses Atherosclerosis of [place] coronary artery with angina pectoris, unspecified whether [place] or transplanted heart (HCC) Marycarmen Rodriguez DO [address] [place] [address] Referral ID Status Reason Start Date Expiration Date V isits Requested Visits Authorized [id number] Closed Specialty Services Required/Krupa ent's Best Interest 10/04/2020 10/04/2021 1 1 Care Teams (unrecognized sec tion and content) Cardiovascular Lab Director Relationship Specialty Start Date End Date Marycarmen Rodriguez DO [address] [place], [place] [id number] PCP - General Family Medicine 12/17/16 Cardiovascular Lab Director Relationship Specialty Start Date End Date Marycarmen Rodriguez DO [address] [place] [address] PCP - General Family Medicine 12/17/16 Cardiovascular Lab Director Relationship Specialty Start Date End Date Jennifer Marycarmen Christy, DO [address] [place] [address] PCP - General Family Medicine 12/17/16 Cardiovascular Lab Director Relationship Specialty Start Date End Date Jennifer, Marycarmen Christy, DO [address] [place] [address] PCP - General Family Medicine 12/17/16 Team Status: Active Member Role Status Dates Dr. Marycarmen Rodriguez DO Family Provider Active Marycarmen Rodriguez Primary Care Provider Active Team Status: Inactive Member Role Status Dates Dr. Marycarmen Rodriguez DO Primary Care Provider, Referrin g Provider Active Luz Elena Mckeon MICA MACHINE OPERATOR, MICA MACHINE OPERATOR-C Attending Provider Active Team Status: Inactive Member Role Status Dates Dr. Marycarmen Rodriguez DO Primary Care Provider Active Dr. Merritt Persaud MD Attending Provider, Referring Pr ovider Active Team Status: Inactive Member Role Status Dates Dr. Marycarmen Rodriguez DO Primary Care Provider, Referrin g Provider Active Can LUGO, [place] Attending Provider Active Team Status: Active Member Role Status Dates Dr. Marycarmen Rodriguez DO Primary Care Provider Active Dr. John Palacios MD Attending Provider Active Team Status: Inactive Member Role Status Dates Dr. Marycarmen Rodriguez DO Primary Care Provider Active Luz Elena Mckeon MICA MACHINE OPERATOR, MICA MACHINE OPERATOR-C Attending Provider Active Team Status: Inactive Member Role Status Dates Dr. Marycarmen Rodriguez DO Primary Care Provider Active Luz Elena Mckeon MICA MACHINE OPERATOR, MICA MACHINE OPERATOR-C Attending Provider, Referring P sharon Active Team Status: Inactive Member Role Status Dates Dr. Marycarmen Rodriguez DO Attending Provider Active Marycarmen Rodriguez Primary Care Provider Active Team Status: Active Member Role Status Dates Dr. Marycarmen Rodriguez DO Family Provider Active Dr. Marycarmen Rodriguez DO Primary Care Provider Active Team Status: Inactive Member Role Status Dates Dr. Marycarmen Rodriguez DO Referring Provider Active Dr. Jose Hay MD Attending Provider Active Marycarmen SWAIN Primary Care Provider Active Team Status: Active Member Role Status Dates Marycarmen SWAIN Primary Care Provider Active Adina Vallejo Attending Provider Active Team Status: Inactive Member Role Status Dates Dr. Marycarmen Rodriguez DO Attending Provider Active Marycarmen SWAIN Primary Care Provider Active Team Status: Inactive Member Role Status Dates Dr. Marycarmen Rodriguez DO Primary Care Provider Active Dr. Jose Hay MD Attending Provider, Referring Pr ovider Active Team Status: Active Member Role Status Dates Dr. Marycarmen Rodriguez DO Primary Care Provider Active Adina Vallejo Attending Provider Active Team Status: Active Member Role Status Dates Dr. Marycarmen Rodriguez DO Primary Care Provider Active Dr. Jose Hay MD Admit Provider, At tending Provider, Referring Provider, Other Provider Active Team Status: Inactive Member Role Status Dates Dr. Marycarmen Rodriguez DO Primary Care Provider Active Dr. Jose Hay MD Admit Provider, At tending Provider, Referring Provider Active Team Status: Active Member Role Status Dates Dr. Marycarmen Rodriguez DO Primary Care Provider Active Dr. Jose Hay MD Attending Provider Active Dr. Alex Sanon MD Referring Provider Active Team Status: Active Member Role Status Dates Dr. Marycarmen Rodriguez DO Primary Care Provider Active Dr. Pardeep Hall DO Emergency Provider Active Dr. Alka Leo MD Admit Provider, Attending Provider, Other Provider Active Team Status: Active Member Role Status Dates Dr. Marycarmen Rodriguez DO Primary Care Provider Active Dr. Pardeep Hall DO Emergency Provider Active Dr. Alka Leo MD Admit Provider, Other Provider Active Dr. Shaan Santos DO Attending Provider, Other Provid er Active Team Status: Active Member Role Status Dates Dr. Marycarmen Rodriguez DO Primary Care Provider Active Dr. Aimee Cummins MD Attending Provider Active Team Status: Inactive Member Role Status Dates Dr. Marycarmen Rodriguez DO Primary Care Provider Active Dr. Pardeep Hall DO Emergency Provider Active Dr. Alka Leo MD Admit Provider, Other Provider Active Dr. Shaan Santos DO Attending Provider Active Team Status: Active Member Role Status Dates Dr. Marycarmen Rodriguez DO Primary Care Provider Active Luz Elena Mckeon MICA MACHINE OPERATOR, MICA MACHINE OPERATOR-C Attending Provider, Referring Rojas herrera Active Team Status: Inactive Member Role Status Dates Dr. Marycarmen Rodriguez DO Primary Care Provider, Referrin g Provider Active Dr. Jose Hay MD Attending Provider Active Team Status: Active Member Role Status Dates Dr. Marycarmen Rodriguez DO Primary Care Provider Active Dr. Marcin Araujo MD Attending Provider Active Dr. Alka Leo MD Referring Provider Active Team Status: Active Member Role Status Dates Dr. Marycarmen Rodriguez DO Primary Care Provider Active Dr. Jose Hay MD Attending Provider, Referring Pr ovider Active Team Status: Active Member Role Status Dates Dr. Marycarmen Rodriguez DO Primary Care Provider Active Dr. Jose Hay MD Attending Provider Active Team Status: Active Member Role Status Dates Dr. Marycarmen Rodriguez DO Primary Care Provider Active Luz Elena Mckeon MICA MACHINE OPERATOR, MICA MACHINE OPERATOR-C Attending Provider Active Team Status: Inactive Member Role Status Dates Dr. Marycarmen Rodriguez DO Primary Care Provider, Attendin g Provider Active Team Status: Active Member Role Status Dates Dr. Marycarmen Rodriguez DO Primary Care Provider Active Team Status: Inactive Member Role Status Dates Dr. Marycarmen Rodriguez DO Primary Care Provider Active Start: March 20, 2024 End: March 20, 2024 Dr. Marycarmen Rodriguez DO Referring Provider Active Start: March 20, 2024 End: March 20, 2024 Dr. Jose Hay MD Attending Provider Active Start: March 20, 2024 End: March 20, 2024 Team Status: Inactive Member Role Status Dates Dr. Marycarmen Rodriguez DO Primary Care Provider Active Start: March 23, 2024 End: March 23, 2024 Dr. Marycarmen Rodriguez DO Attending Provider Active Start: March 23, 2024 End: March 23, 2024 Team Status: Inactive Member Role Status Dates Dr. Marycarmen Rodriguez DO Primary Care Provider Active Start: March 27, 2024 End: March 27, 2024 Dr. Marycarmen Rodriguez DO Referring Provider Active Start: March 27, 2024 End: March 27, 2024 Dr. Jose Hay MD Attending Provider Active Start: March 27, 2024 End: March 27, 2024 Team Status: Inactive Member Role Status Dates Dr. Marycarmen Rodriguez DO Primary Care Provider Active Start: April 17, 2024 End: April 17, 2024 Dr. Marycarmen Rodriguez DO Referring Provider Active Start: April 17, 2024 End: April 17, 2024 Gustabo Pérez MICA MACHINE OPERATOR, MICA MACHINE OPERATOR-C Attending Provider Active S tart: April 17, 2024 End: April 17, 2024 Team Status: Inactive Member Role Status Dates Dr. Marycarmen Rodriguez DO Primary Care Provider Active Start: April 17, 2024 End: April 17, 2024 Gustabo Pérez MICA MACHINE OPERATOR, MICA MACHINE OPERATOR-C Attending Provider Active S tart: April 17, 2024 End: April 17, 2024 Gustabo Pérez MICA MACHINE OPERATOR, MICA MACHINE OPERATOR-C Referring Provider Active S tart: April 17, 2024 End: April 17, 2024 Team Status: Inactive Member Role Status Dates Dr. Marycarmen Rodriguez DO Primary Care Provider Active Start: June 30, 2024 End: June 30, 2024 Dr. Marycarmen Rodriguez DO Attending Provider Active Start: June 30, 2024 End: June 30, 2024 Team Status: Inactive Member Role Status Dates Dr. Marycarmen Rodriguez DO Primary Care Provider Active Start: July 03, 2024 End: July 03, 2024 Dr. Marycarmen Rodriguez DO Referring Provider Active Start: July 03, 2024 End: July 03, 2024 Marni Horn MICA MACHINE OPERATOR, MICA MACHINE OPERATOR-C Attending Provider Active Start: July 03, 2024 End: July 03, 2024 Team Status: Active Member Role Status Dates Dr. Marycarmen Rodriguez DO Primary Care Provider Active Start: July 07, 2024 Marni Horn MICA MACHINE OPERATOR, MICA MACHINE OPERATOR-C Attending Provider Active Start: July 07, 2024 Marni Horn MICA MACHINE OPERATOR, MICA MACHINE OPERATOR-C Referring Provider Active Start: July 07, 2024 Team Status: Inactive Member Role Status Dates Dr. Marycarmen Rodriguez DO Primary Care Provider Active Start: July 07, 2024 End: July 07, 2024 Marni Horn MICA MACHINE OPERATOR, MICA MACHINE OPERATOR-C Attending Provider Active Start: July 07, 2024 End: July 07, 2024 Marni Horn MICA MACHINE OPERATOR, MICA MACHINE OPERATOR-C Referring Provider Active Start: July 07, 2024 End: July 07, 2024 Team Status: Active Member Role Status Dates Dr. Marycarmen Rodriguez DO Primary Care Provider Active Start: July 17, 2024 Marni Horn MICA MACHINE OPERATOR, MICA MACHINE OPERATOR-C Attending Provider Active Start: July 17, 2024 Marni Horn MICA MACHINE OPERATOR, MICA MACHINE OPERATOR-C Referring Provider Active Start: July 17, 2024 Team Status: Active Member Role Status Dates Dr. Marycarmen Rodriguez DO Primary Care Provider Active Start: July 18, 2024 Marni Horn MICA MACHINE OPERATOR, MICA MACHINE OPERATOR-C Attending Provider Active Start: July 18, 2024 Marni Horn MICA MACHINE OPERATOR, MICA MACHINE OPERATOR-C Referring Provider Active Start: July 18, 2024 Team Status: Active Member Role Status Dates Dr. Marycarmen Rodriguez DO Primary Care Provider Active Start: July 18, 2024 Marni Horn MICA MACHINE OPERATOR, MICA MACHINE OPERATOR-C Referring Provider Active Start: July 18, 2024 Marni Horn MICA MACHINE OPERATOR, MICA MACHINE OPERATOR-C Other Provider Active Start: July 18, 2024 Dr. Zen East DO Attending Provider Active S tart: July 18, 2024 Team Status: Inactive Member Role Status Dates Dr. Marycarmen Rodriguez DO Primary Care Provider Active Start: July 17, 2024 End: July 17, 2024 Marni Horn MICA MACHINE OPERATOR, MICA MACHINE OPERATOR-C Attending Provider Active Start: July 17, 2024 End: July 17, 2024 Marni Horn MICA MACHINE OPERATOR, MICA MACHINE OPERATOR-C Referring Provider Active Start: July 17, 2024 End: July 17, 2024 Team Status: Inactive Member Role Status Dates Dr. Marycarmen Rodriguez DO Primary Care Provider Active Start: July 18, 2024 End: July 18, 2024 Marni Horn MICA MACHINE OPERATOR, MICA MACHINE OPERATOR-C Attending Provider Active Start: July 18, 2024 End: July 18, 2024 Marni Horn MICA MACHINE OPERATOR, MICA MACHINE OPERATOR-C Referring Provider Active Start: July 18, 2024 End: July 18, 2024 Team Status: Inactive Member Role Status Dates Dr. Marycarmen Rodriguez DO Primary Care Provider Active Start: August 03, 2024 End: August 03, 2024 Marni Horn MICA MACHINE OPERATOR, MICA MACHINE OPERATOR-C Attending Provider Active Start: August 03, 2024 End: August 03, 2024 Marni Horn MICA MACHINE OPERATOR, MICA MACHINE OPERATOR-C Referring Provider Active Start: August 03, 2024 End: August 03, 2024 Team Status: Inactive Member Role Status Dates Dr. Marycarmen Rodriguez DO Primary Care Provider Active Start: September 20, 2024 End: September 20, 2024 Dr. Marycarmen Rodriguez DO Referring Provider Active Start: September 20, 2024 End: September 20, 2024 Maren Olivas MICA MACHINE OPERATOR-C Attending Provider Active Start: September 20, 2024 End: September 20, 2024 Team Status: Inactive Member Role Status Dates Dr. Marycarmen Rodriguez DO Primary Care Provider Active Start: September 20, 2024 End: September 20, 2024 YRN Calabrese Attending Provider Active Start: September 20, 2024 End: September 20, 2024 YRN Calabrese Referring Provider Active Start: September 20, 2024 End: September 20, 2024 Team Status: Active Member Role Status Dates Dr. Marycarmen Rodriguez DO Primary Care Provider Active Start: September 22, 2024 Marni Horn NP, NP-C Attending Provider Active Start: September 22, 2024 Team Status: Inactive Member Role Status Dates Dr. Marycarmen Rodriguez DO Primary Care Provider Active Start: September 22, 2024 End: September 22, 2024 Marni Horn NP, ELIAZAR-C Attending Provider Active Start: September 22, 2024 End: September 22, 2024 Team Status: Inactive Member Role Status Dates Dr. Marycarmen Rodriguez DO Primary Care Provider Active Start: September 29, 2024 End: September 29, 2024 Dr. Marycarmen Rodriguez DO Attending Provider Active Start: September 29, 2024 End: September 29, 2024 Dr. Marycarmen Rodriguez DO Referring Provider Active Start: September 29, 2024 End: September 29, 2024 Goals (unrecognized section and content) Goals may be documented in a n alternate sectionGoals may be documented in an alternate sectionGoals may be documented in an alternate sectionGoals may be documented in an alternate sectionGoals may be documented in an alternate sectionGoals may be documented in an alternate sectionGoals may be documented in an alternate sectionGoals may be documented in an alternate sectionGoals may be documented in an alternate sectionGoals may be documented in an alternate sectionGoals may be documented in an alternate sectionGoals may be documented in an alternate sectionGoals may be documented in an alternate sectionGoals may be documented in an alternate sectionGoals may be documented in an alternate sectionGoals may be documented in an alternate sectionGoals may be documented in an alternate sectionGoals may be documented in an alternate sectionGoals may be documented in an alternate section FOR RECORDS PERTAINING TO PATIENTS WHO ARE OR HAVE BEEN ENROLLED IN A CHEMICAL DEPENDENCY/SUBSTANCEABUSE PROGRAM, SOME INFORMATION MAY BE OMITTED. This clinical summary was aggregated from multiple sources. Caution should be exercised in using it in the provision of clinical care. This summary normalizes information from multiple sources, and as a consequence, information in this document may materially change the coding, format and clinical context of patient data. In addition, data may be omitted in some cases. CLINICAL DECISIONS SHOULD BE BASED ON THE PRIMARY CLINICAL RECORDS. [facility]. provides no warranty or guarantee of the accuracy or completeness of information in this document.
== END | disposition home or self-care (01) ==
PROVIDERS: Nurse Practitioner Family; PCP Family Medicine; Referring Provider Anesthesiology Pain Medicine; Visit Provider Anesthesiology Pain Medicine
DX: F11.20 Opioid dependence, uncomplicated (principal); I50.9 Heart failure, unspecified; R06.02 Shortness of breath
CPT/HCPCS: 36415; 80048; 80307; 83880; 85025

== ENCOUNTER → 2024-10-18 | Outpatient (CLI) | payer MEDICARE, OTHER, SELFPAY ==
[2018-08-03 13:04] VITALS: BMI 19.8
== END | disposition home or self-care (01) ==
LOC: SL 13:18
PROVIDERS: PCP Family Medicine; Visit Provider Nurse Practitioner Acute Care
DX: Z46.89 Encounter for fitting and adjustment of other specified devices (principal)

== ENCOUNTER → 2024-10-26 | Outpatient (CLI) | payer MEDICARE, OTHER, SELFPAY ==
[2018-08-03 13:04] VITALS: BMI 19.8
--- OUTSIDE RECORDS SUMMARY | 2024-10-26 21:28 | XMS RPT_ITS | CCD ---
Author Organization [facility] CliniSyla Care Team Providers Care Ppa Teacher Name Role Phone Unavailable Unavailable Unavailable Marycarmen Rodriguez DO Primary Care Provider Marycarmen Rodriguez DO Primary Care Provider [phone] MIN HOWARD Referring Unavailable MARYCARMEN RODRIGUEZ Primary Care Unavailable ELADIO INGRAM Attending Unavaila ble DAVAKIS, ELADIO ALLEN Admitting Unavaila ble JENNIFERMARYCARMEN RUIZ Primary Care Unavailable MARYCARMEN RODRIGUEZ Primary Care Unavailable DAVJAIME, ELADIO ALLEN Referring Unavaila ble DAVAKIS, ELADIO ALLEN Attending Unavaila ble JENNIFERMARYCARMEN RUIZ Primary Care Unavailable DAVAKISELADIO Admitting Unavaila ble [...] Unavailable DAVELADIO SANDOVAL Attending Unavaila ble JENNIFERMARYCARMEN RUIZ Referring Unavailable MAYRCARMEN RODRIGUEZ Primary Care Unavailable NATALY, ELADIO ALLEN Attending Unavaila ble MARYCARMEN RODRIGUEZ Primary Care Unavailable Dr. Marycarmen Rodriguez Primary Care Provider [phone] Marycarmen Rodriguez Referring Provider Mike PEREA, IT PROFESSIONAL-C Luz Elena Attending Provider Dr. Darnell Corral Attending Provider [phone] Mike IT PROFESSIONAL, IT PROFESSIONAL-C Luz Elena Referring Provider Mike IT PROFESSIONAL, IT PROFESSIONAL-C Luz Elena Other Provider Dr. John Palacios Attending Provider Mike IT PROFESSIONAL, IT PROFESSIONAL-C Luz Elena Referring Provider Dr. Marycarmen Rodriguez Primary Care Provider [phone] Dr. Marycarmen Rodriguez Referring Provider Mike IT PROFESSIONAL, ELIAZAR-C Luz Elena Attending Provider Dr. Zen East Attending Provider Dr. Marycarmen Rodriguez Primary Care Provider [phone] Dr. Marycarmen Rodriguez Referring Provider Dr. Merritt Persaud Attending Provider PARISH Youssef Attending Provider Mike PEREA, ELIAZAR-C Luz Elena Attending Provider Dr. John Palacios Attending Provider Dr. Merritt Persaud Referring Provider Dr. Marycarmen Rodriguez Primary Care Provider Dr. Marycarmen Rodriguez Referring Provider Dr. Merritt Persuad Attending Provider Marycarmen Gutierrez Primary Care Provider Unavail Adina Phillips Attending Provider Unavailable Dr. Marycarmen Rodriguez Referring Provider Dr. Jose Hay Attending Provider Dr. Marycarmen Rodriguez Primary Care Provider [phone] Dr. Jose Hay Admit Provider Dr. Jose Hay Referring Provider Dr. Jose Hay Other Provider Dr. Alex Sanon Referring Provider Unavailable Dr. Pardeep Hall Emergency Provider [phone] Dr. Alka Leo Admit Provider [phone] Dr. Alka Leo Attending Provider Dr. Alka Leo Other Provider Dr. Shaan Santos Attending Provider Dr. Shaan Santos Other Provider Dr. Aimee Cummins Attending Provider Mike IT PROFESSIONAL, IT PROFESSIONAL-C Luz Elena Attending Provider Adina Vallejo Attending [...] Dr. Marycarmen Rodriguez DO Attending Provider Beto IT PROFESSIONAL-C, Gustabo H Attending Provider Roof IT PROFESSIONAL-C, Gustabo H Referring Provider Justina IT PROFESSIONAL-CMarni Attending Provider Justina IT PROFESSIONAL-CMarni Referring Provider Dr. Marycarmen Rodriguez DO Primary Care Provider Dr. Marycarmen Rodriguez DO Referring Provider Dr. Jose Hay MD Attending Provider Justina IT PROFESSIONAL-CMrani Other Provider Dr. Zen East DO Attending Provider Dr. Marycarmen Rodriguez DO Primary Care Provider Dr. Marycarmen Rodriguez DO Referring Provider Dr. Marycarmen Rodriguez DO Attending Provider [phone] Jennifer CATHERINE, Dr. Dow Primary Care Provider [phone] Jennifer CATHERINE, Dr. Dow Referring Provider Brendon IT PROFESSIONAL-C, Maren Clarke Attending Provider Brendon IT PROFESSIONAL-C, Maren Clarke Referring Provider Cruzito CATHERINE, Dr. Zaldivar Attending Provider [phone] Pauline PALOMO, Dr. Guy Attending Provider Pauline PALOMO, Dr. Guy Referring Provider Roof IT PROFESSIONAL-C, Gustabo Gao Other Provider Roof IT PROFESSIONAL-C, Gustabo Gao Attending Provider JenniferMarycarmen Referring Unavailable Beto IT PROFESSIONAL, Gustabo Gao Attending Unavailable Jennifer, Marycarmen Primary Care Unavailable Jennifer, Marycarmen Referring Unavailable Jennifer, Marycarmen Primary Care Unavailable Horn IT PROFESSIONAL, Marni Attending Unavailable Jennifer, Marycarmen Primary Care Unavailable Jennifer, Marycarmen Referring Unavailable Jose ArmandoJose Attending Unavailable Jennifer, Marycarmen Primary Care Unavailable Horn IT PROFESSIONAL, Marni Referring Unavailable Horn IT PROFESSIONAL, Marni Attending Unavailable Jennifer, Marycarmen Primary Care Unavailable Jennifer, Marycarmne Referring Unavailable Jennifer, Marycarmen Attending Unavailable Jennifer, Marycarmen Primary Care Unavailable Brooks Carpenter Referring Unavailable Brooks Carpenter Attending Unavailable Beto IT PROFESSIONAL, Gustabo Gao Consulting Unavailable Maren Olivas Referring Unavailable Maren Olivas Attending Unavailable Jennifer, Marycarmen Primary Care Unavailable Jennifer, Marycarmen Primary Care Unavailable Jennifer, Marycarmen Referring Unavailable Mckeon IT PROFESSIONAL, Luz Elena Attending Unavailable Jennifer, Marycarmen Primary Care Unavailable Jennifer, Marycarmen Referring Unavailable Roof IT PROFESSIONAL, Gustabo Gao Attending Unavailable Jennifer, Marycarmen Referring Unavailable Jose ArmandoJose Attending Unavailable Jennifer, Marycarmen Primary Care Unavailable Jennifer, Marycarmen Primary Care Unavailable Horn IT PROFESSIONAL, Marni Referring Unavailable Zen East Attending Unavailable Zen East Attending Unavailable Jennifer, Marycarmen Primary Care Unavailable Horn IT PROFESSIONAL, Marni Consulting Unavailable Horn IT PROFESSIONAL, Marni Referring Unavailable Maren Olivas Attending Unavailable Jennifer, Marycarmen Primary Care Unavailable Jennifer, Marycarmen Referring Unavailable Jennifer, Marycarmen Primary Care Unavailable Jennifer, Marycarmen Referring Unavailable Jennifer, Marycarmen Attending Unavailable Jennifer, Marycarmen Primary Care Unavailable Horn IT PROFESSIONAL, Marni Attending Unavailable Jennifer, Marycarmen Primary Care Unavailable Horn IT PROFESSIONAL, Marni Attending Unavailable Justina IT PROFESSIONAL, Marni Referring Unavailable Jennifer, Marycarmen Primary Care Unavailable Horn IT PROFESSIONAL, Marni Attending Unavailable Horn IT PROFESSIONAL, Marni Referring Unavailable Jennifer, Marycarmen Primary Care Unavailable Horn IT PROFESSIONAL, Marni Attending Unavailable Roof IT PROFESSIONAL, Gustabo H Referring Unavailable Roof IT PROFESSIONAL, Gustabo H Attending Unavailable Jennifer, Marycarmen Primary Care Unavailable Jennifer, Marycarmen Primary Care Unavailable Jennifer, Marycarmen Attending Unavailable Jennifer, Marycarmen Primary Care Unavailable Roof IT PROFESSIONAL, Gustabo H Referring Unavailable Roof IT PROFESSIONAL, Gustabo H Attending Unavailable Jennifer, Marycarmen Primary Care Unavailable Jennifer, Marycarmen Attending Unavailable Jennifer, Marycarmen Primary Care Unavailable Horn IT PROFESSIONAL, Marni Attending Unavailable Horn IT PROFESSIONAL, Marni Referring Unavailable Jennifer, Marycarmen Primary Care Unavailable Horn IT PROFESSIONAL, Marni Attending Unavailable Horn IT PROFESSIONAL, Marni Referring Unavailable Medications Current Medications Medication Drug Class(es) [...] / HYDROcodone bitartrate 5 mg oral tablet (12 sources) Opioid Agonist Start: 04-17-2024 Hydrocodone-Acetaminophen 5-325 mg tablet Active 1 {tbl} PO TWICE A DAY as needed April 17, 2024 1:00am [id number] 200 actuat albuterol 0.09 mg/actuat metered dose inhaler (7 sources) beta2-Adrenergic Agonist Start: 09-20-2024 Albuterol Sulfate 90 mcg/actuation HFA aerosol inhaler Active 2 NMA INHALATION EVERY 4-6 HOURS as needed for shortness of breath or wheezing 8.5 September 20, 2024 12:00am aspirin 81 mg delayed release oral tablet (20 sources) Platelet Aggregation Inhibitor, Nonsteroidal Anti-inflammator y Drug Start: 01-21-2017 take 1 tablet by mouth once daily Aspirin 81 MG tablet Active 81 mg PO DAILY@0800 January 21, 2017 12:00am cetirizine hydrochloride 10 mg oral tablet (20 [...] 2021 10:49am take 1 capsule by mo [facility] twice daily FLUoxetine (PROZAC) 40 MG capsule Take 40 mg by mouth 2 (two) times a day . 0 Active Fluticasone Furoate (7 sources) Corticosteroid Start: 09-20-2024 take 200 ug by inhalation every twenty-four hours Fluticasone Furoate (Arnuity Ellipta) 200 mcg/actuation blister with device Active 1 NMA INHALATION Q24H September 20, 2024 12:00am glimepiride 4 mg oral tablet (20 sources) [...] 12, 2018 1:00am September 01, 2018 9:30am 24 hr isosorbide mononitrate 60 mg extended release oral tablet (20 sources) Nitrate Vasodilator Start: 10-25-2024 take 1 tablet by mouth twice daily, then take 1 tablet by mouth every twenty-four hours Isosorbide Mononitrate 60 mg tablet extended release 24 hr Active 60 mg PO TWICE A DAY 90 October 25, 2024 8:52am Start: 10-13-2022 End: 10-25-2024 take 1 tablet by mouth once daily, then take 1 tablet by mouth every twenty-four hours Isosorbide Mononitrate 60 mg tablet extended release 24 hr Discontinued 60 mg PO DAILY 90 June 14, 2024 11:59am October 25, 2024 8:54am Start: 10-01-2022 End: 10-13-2022 take 1 tablet [...] tab) in the evening Start: 06-01-2019 End: 09-01-2022 take 1 tablet [...] 24 hr Discontinued 60 mg PO DAILY June 09, 2018 4:38pm August 03, 2018 [...] 21, 2017 12:00am December 02, 2017 10:52am losartan potassium 100 mg oral tablet (20 [...] DAILY NEEDED as needed for vertiginous symptoms September 21, 2022 12:00am October 12, 2023 4:21pm metFORMIN hydrochloride 500 mg oral tablet (20 sources) Biguanide Start: 10-25-2024 take 1 tablet by mouth once daily Metformin 500 mg tablet Active 500 mg PO daily October 25, 2024 12:00am Start: 08-19-2022 End: 10-25-2024 take 1 tablet by mouth twice daily Metformin 500 mg tablet Discontinued 500 mg PO TWICE A DAY August 19, 2022 10:06am October 25, 2024 8:15am Start: 11-21-2021 End: 08-19-2022 take 1 tablet by mouth once daily Metformin 500 mg tablet Discontinued 500 mg PO DAILY November 21, 2021 12:00am August 19, 2022 10:07am metOLazone 2.5 mg oral tablet (20 sources) Thiazide-like Diuretic Start: 10-25-2024 take 1 tablet by mouth once daily Metolazone 2.5 mg tablet Active 2.5 mg PO daily October 25, 2024 12:00am Start: 03-27-2024 End: 04-17-2024 take 1 tablet [...] 16, 2021 10:48am November 21, 2021 10:55am 24 hr metoprolol succinate 25 mg extended release oral tablet (20 sources) beta-Adrenergic Kale Start: 10-25-2024 take 1 tablet by mouth once daily Metoprolol Succinate 25 mg tablet extended release 24 hr Active 25 mg PO DAILY October 25, 2024 12:00am Start: 12-22-2022 End: 09-16-2023 take 1 tablet by mouth twice daily Metoprolol Tartrate 25 mg tablet Discontinued 25 mg PO TWICE A DAY 1 December 22, 2022 2:31pm September 16, 2023 [...] a day. 180 tablet 3 10/20/2016 Active mirtazapine 15 mg oral tablet (20 sources) [...] a day. 540 tablet 3 03/28/2017 Active spironolactone 50 mg oral tablet (20 sources) [...] Drug Class(es) Dates Sig (Normalized) Sig (Original) amLODIPine 5 mg oral tablet (20 sources) Dihydropyridine Calcium Channel Kale Start: 09-24-2023 End: 10-25-2024 take 1 tablet by mouth once daily Amlodipine 5 mg tablet Discontinued 5 mg PO DAILY June 14, 2024 11:58am October 25, 2024 8:14am Start: 08-01-2021 End: 12-15-2022 take 1 tablet by mouth twice daily Amlodipine 5 mg tablet Discontinued 5 mg PO TWICE A DAY March 11, 2022 4:59pm December 15, 2022 [...] mg tablet Discontinued 2.5 mg PO DAILY March 31, 2019 4:07pm July 05, 2019 [...] (two) times a day . 0 Active amoxicillin 875 mg / clavulanate 125 mg [...] 27, 2022 12:00am April 14, 2022 10:28am carvedilol 6.25 mg oral tablet (20 sources) alpha-Adrenergic Kale, beta-Adrenergic Kale Start: 09-16-2023 End: 10-25-2024 take 1 tablet by mouth twice daily at mealtime Carvedilol (Coreg) 6.25 mg tablet Discontinued 6.25 mg PO TWICE A DAY June 14, 2024 11:59am October 25, 2024 8:51am must administer with a meal/food ciprofloxacin 500 mg oral tablet (20 sources) [...] mg tablet Discontinued 20 mg PO DAILY 90 June 09, 2018 4:38pm September 08, 2018 [...] mouth daily. 90 tablet 3 05/07/2016 Active gabapentin 100 mg oral capsule (20 sources) Anti-epileptic Agent Start: 03-20-2024 End: 10-25-2024 take 2 capsules by mouth twice daily as needed Gabapentin 100 mg capsule Discontinued 200 mg PO TWICE A DAY as needed April 17, 2024 5:02pm October 25, 2024 8:18am 12 hr guaiFENesin 600 mg extended release [...] 21, 2019 11:00pm January 03, 2020 7:29am Magnesium (20 sources) Start: 06-04-2019 End: 06-04-2019 [...] 2019 10:41am melatonin 3 mg oral tablet (18 sources) Start: 09-21-2022 End: 12-15-2022 take 1 tablet by mouth at bedtime as needed Melatonin 3 mg Tablet Discontinued 3 mg PO AT BEDTIME NEEDED as needed for Insomnia 0 September 21, 2022 12:00am December 15, 2022 1:12pm metroNIDAZOLE 500 mg oral tablet (20 sources) [...] Intol,Lf,Soy-Fiber (Glucerna 1.2 Ashwin) 0.06-1.2 gram-kcal/mL Liquid (18 sources) Start: 09-21-2022 End: 10-12-2023 take 1 mL by mouth three times daily at mealtime Nut.Tx.Gluc Intol,Lf,Soy-Fiber (Glucerna 1.2 Ashwin) 0.06-1.2 gram-kcal/mL Liquid Discontinued 120 mL PO 3 TIMES DAILY WITH MEALS September 21, 2022 12:00am October 12, 2023 4:22pm Start: 09-21-2022 take 1 mL by mouth t hree times daily at mealtime Nut.Tx.Gluc Intol,Lf,Soy-Fiber (Glucerna 1.2 Ashwin) 0.06-1.2 gram-kcal/mL Liquid Active 120 ML PO 3 TIMES DAILY WITH MEALS September 20, 2022 11:00pm Start: 09-21-2022 take 1 mL by mouth t hree times daily at mealtime Nut.Tx.Gluc Intol,Lf,Soy-Fiber (Glucerna 1.2 Ashwin) 0.06-1.2 gram-kcal/mL Liquid Active 120 ML PO 3 TIMES DAILY WITH MEALS September 21, 2022 12:00am ondansetron 4 mg [...] tablet 3 08/07/2016 Active perflutren lipid microspheres (DEFINITY) 0.143 mg/mL solution [...] 17, 2017 12:00am November 30, 2017 7:41pm predniSONE 20 mg oral tablet (6 sources) Start: 09-20-2024 End: 10-25-2024 take 2 tablets by mouth once daily, then take 1 tablet by mouth once daily Prednisone 20 mg tablet Discontinued 20 mg PO daily September 20, 2024 12:00am October 25, 2024 8:20am Take 2 tablets daily for 4 days then 1 tablet daily for 2 days. pregabalin 50 mg oral capsule (20 sources) Start: 08-27-2017 End: 09-07-2017 take 1 capsule by mouth once daily Pregabalin 50 MG capsule Discontinued 50 mg PO DAILY 7 August 27, 2017 12:00am September 07, 2017 1:16pm 12 hr ranolazine 1000 mg extended release oral tablet (20 sources) Anti-angin al Start: 10-29-2023 End: 11-12-2023 [...] Discontinued 500 mg PO TWICE A DAY October 01, 2023 12:00am October 29, 2023 1:19pm Semaglutide (12 sources) Start: 04-17-2024 End: 05-15-2024 Semaglutide (Ozempic) [...] Cardiac dysrhythmias (20 sources) Palpitations; Translations: [Palpitations] Onset: 10-25-2024 Episodic 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 (20 sources) Chronic [...] heart disease (20 sources) Coronary arteriosclerosis in [place] artery; Translations: [Preinfarction syndrome] Onset: 01-05-2015 10-15-2016 [...] (20 sources) Hyperlipidemia; Translations: [Hyperlipidemia, unspecified] Onset: 04-18-2024 06-17-2015 Chronic Diverticulosis and diverticulitis (20 sources) Diverticulitis; Translations: [Diverticulitis of intestine, part unspecified, without perforation or abscess without bleeding] 05-27-2021 Chronic Essential hypertension (20 sources) Hypertensive disorder; Translations: [Essential (primary) hypertension] Onset: 04-18-2024 06-17-2015 Chronic Fluid and electrolyte disorders (20 [...] single episode, unspecified] Onset: 03-18-2016 03-18-2016 Chronic Nonspecific chest pain (20 sources) Chest pain; Translations: [Chest pain at rest] Onset: 01-25-2015 11-29-2016 Episodic Open wounds of head; neck; and trunk [...] injuries and conditions due to external causes (12 sources) Open wound; Translations: [Other injury of unspecified body region, initial encounter] 12-14-2022 Episodic Other lower respiratory disease (7 sources) Dyspnea; Translations: [Shortness of breath] Episodic Other lower respiratory disease (20 sources) Dyspnea on exertion; Translations: [Dyspnea, unspecified] Episodic Other lower respiratory disease (20 sources) Cough; Translations: [Cough] 01-26-2021 Episodic Other lower respiratory disease (4 sources) Dyspnea, unspecified; Translations: [Other respiratory abnormalities] Onset: 07-27-2024 Episodic Other lower respiratory disease (7 sources) Wheezing; Translations: [Wheezing] 09-20-2024 Episodic Other lower respiratory disease (2 sources) Shortness of breath; Translations: [Shortness of breath] Onset: 10-25-2024 Episodic Other lower respiratory disease (1 source) [...] and adjustment of other specified devices] Onset: 10-25-2024 Chronic Residual codes; unclassified (20 sources) Obstructive sleep apnea syndrome; Translations: [Obstructive sleep apnea (adult) (pediatric)] Onset: 01-25-2015 01-25-2015 Chronic Comment on above: AHI 64.7 Residual codes; unclassified (6 sources) Obstructive sleep apnea (adult) (pediatric); Translations: [Obstructive sleep apnea (adult)(pediatric)] Onset: 10-19-2024 Chronic Residual codes; unclassified (20 sources) Bilateral lower limb edema; Translations: [Localized edema] 12-15-2022 Episodic Residual codes; unclassified (4 sources) Localized edema; Translations: [Edema] Onset: 10-25-2024 12-15-2022 Episodic Substance-related disorders (1 source) Opioid dependence, uncomplicated; Translations: [Opioid dependence, uncomplicated] Onset: 10-24-2024 Chronic Syncope (20 sources) Syncope; Translations: [Syncope and [...] used.Successful PTCA/KENDALL Prox RCA ISR using Resolute Lul 3.5x22 mm, post-dilated using 3.[address] 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 Procedure aborted. 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 [place], [place] [address] OFFICE VISIT Date of Service: 10/25/24 MR#: [id number] Acct: [id number] Name: ERIBERTO RICO Rep #: [id number] : 1945 Provider: YRN arvizu Age/Sex: 79/M Location: [facility] Status: Signed HPI HPI History of Present Illness Details: This gentleman with history of coronary artery disease status post percutaneous intervention to the RCA for in-stent restenosis in 2022, hypertension, dyslipidemia, diabetes mellitus and obesity is here for follow-up visit. He also has history of COPD. He contacted our office expressing concerns that he is short of breath despite pulmonary workup. He underwent laboratory testing that showed hemoglobin 11.5 creatinine 2.0 and an NT proBNP at 200. He acknowledges sharp, heavy, and chest fullness sensation. This is noted with activity located midsternal, left side of his chest, and right side of his chest. He has been utilizing nitroglycerin to assist with pain. This lasted for 30 minutes. He acknowledges palpitations. He acknowledges bilateral lower extremity edema. He acknowledges shortness of breath at rest and shortness of breath with activity that includes simple activities. He acknowledges lightheadedness and weakness. He denies dizziness, near-syncope, or syncope. He acknowledges fatigue. Intake Vital Signs 09/20/24 09:15 10/25/24 08:10 Height 5 ft 9 in 5 ft 9 in Weight: 243 lb BMI 35.9 BP 121/85 H Blood Pressure Location Lt brachial Position Sitting Respiration 18 Pulse 85 Pulse Source NIBP Intake Visit Reasons: Shortness of breath Translational Specialist Required: No Is patient in pain?: No Allergies No Known Allergies Allergy (Verified 09/20/24 10:16) Medications ???Medication ???Instructions ???Recorded ???Confirmed ???Type aspirin 81 mg tablet,delayed 81 mg PO DAILY@0800 health 7 10/25/24 History release maintenance mirtazapine 15 mg tablet (Remeron) 15 mg PO QHS sleep 09/21/1810/02 History cyanocobalamin (vitamin B-12) 1,000 mcg PO DAILY vitamin ##0 10/25/24 History 1,000 mcg capsule magnesium oxide 400 mg (241.3 mg 800 mg PO DAILY SUPPLEMENT 2 10/25/24 History magnesium) tablet cetirizine 10 mg tablet 10 mg PO DAILY PRN Allergic 10/25/24 History Reaction cholecalciferol (vitamin D3) 25 25 mcg PO DAILY 09/16/21 History mcg (1,000 unit) tablet fluoxetine 40 mg capsule 80 mg PO DAILY DEPRESSION 90 days 09/16/21 10/25/24 History #180 caps acetaminophen 325 mg tablet 650 mg PO Q6H PRN Pain 1-02/0910/25/24 History meclizine 25 mg tablet 25 mg PO DAILY PRN 10/29/23 History glimepiride 4 mg tablet 4 mg PO QDAY 03/20/24 10/25/24 His tory hydrocodone-acetamino phen 5-325mg 1 tab PO BID PRN 04/17/24 5 History 5mg-325mg atorvastatin 40 mg tablet 40 mg PO QHS CHOLESTEROL #90 tabs 06/14/24 10/25/24 Rx clopidogrel 75 mg tablet [address] #90 tabs 5 10/25/24 Rx furosemide 40 mg tablet 40 mg PO BID #180 tabs 06/14/24 Rx losartan 100 mg tablet 100 mg PO DAILY #90 tabs 06/14/24 10/25/24 Rx nitroglycerin 0.4 mg sublingual 0.4 mg sublingual Q5-15M PRN CHEST 06/14/24 10/25/24 Rx tablet PAIN #25 tabs pantoprazole 40 mg tablet,delayed 40 mg PO DAILY GERD #90 tabs 06/0310/25/24 Rx release potassium chloride 20 mEq 60 meq (3 x 20 mEq) PO BID 5 10/25/24 Rx tablet,extended release(part/cryst) supplement #180 tabs spironolactone 50 mg tablet 50 mg PO DAILY #90 tabs 06/14/24 0 10/25/24 Rx albuterol sulfate 90 mcg/actuation 2 inh inhalation Q4-6H PRN 09/2010/25/24 Rx aerosol inhaler shortness of breath or wheezing #8.5 grams fluticasone furoate 200 1 inh inhalation Q24H #30 ea 09/2010/25/24 Rx mcg/actuation blister powder for inhalation (Arnuity Ellipta) amlodipine 5 mg tablet 5 mg PO QPM 10/25/24 10/25/24 Hist ory isosorbide mononitrate 60 mg 60 mg PO BID #90 TABLETS 10/25/24 10/25/24 Rx tablet,extended release 24 hr metformin 500 mg tablet 500 mg PO QDAY 10/25/24 10/25/24 H istory metolazone 2.5 mg tablet 2.5 mg PO QDAY 10/25/24 10/25/24 H istory metoprolol succinate 25 mg 25 mg PO DAILY #30 tabs 10/25/24 0 10/25/24 Rx tablet,extended release 24 hr Ejection fraction %: 55 Have you fallen in the past year?: Yes PFSH Medical History Shortness of breath Unstable angina Fatigue Syncope Left-sided weakness History of COVID-19 Presence of stent in coronary artery ( 08/31/22) Dyslipidemia Diabetes mellitus 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 Coronary artery disease Angina pectoris Abnormal PFT Chest heaviness Pa (more content not included)... Normal [facility] [id number] 10-23-2024 [facility] Misc. COMMENT Normal . [facility] Comment on above: Order Comment: [id number] MED TOX Result Comment: Test Ordered: [id number] Amphetamines Screen, Urine Negative ng/mL UI Reference Range: Kvqhbi=888 Amphetamine test includes Amphetamine and Methamphetamine. Barbiturates Negative ng/mL UI Reference Range: Dihxgx=845 Benzodiazepines Negative ng/mL UI Reference Range: Kvihjt=229 Cocaine (Metab.), Urine Negative ng/mL UI Reference Range: Zaefqj=430 Opiates Note: ng/mL UI See Final Results Reference Range: Pygwni=710 Opiate test includes Codeine, Morphine, Hydromorphone, Hydrocodone. Opiates Positive [A ] UI Reference Range: Wmokzy=727 Opiate test includes Codeine, Morphine, Hydromorphone, Hydrocodone. Codeine Negative UI Reference Range: Zubdxz=443 Morphine Negative UI Reference Range: Ucuhfi=522 Hydromorphone Negative UI Reference Range: Hkagut=639 Hydrocodone Positive [A ] UI Reference Range: . Hydrocodone Conf, MS, UR 349 ng/mL UI Reference Range: Opnsjc=815 6-Acetylmorphine, Urine Negative ng/mL UI Reference Range: Cutoff=10 Oxycodone/Oxymorphone, Urine Negative ng/mL UI Reference Range: Ibsrfy=530 Test includes Oxycodone and Oxymorphone PCP, Urine Negative ng/mL UI Reference Range: Cutoff=25 Methadone Screen, Urine Negative ng/mL UI Reference Range: Srlaob=981 Propoxyphene, Urine Negative ng/mL UI Reference Range: Kwqbxm=614 Fentanyl, Urine Negative ng/mL UI Reference Range: Cutoff=2.0 Test includes Fentanyl and Norfentanyl This test was developed and its performance characteristics determined by [facility]. It has not been cleared or approved by the Food and Drug Administration. Tramadol Negative ng/mL UI Reference Range: Imbtwj=610 Buprenorphine, Urine Negative ng/mL UI Reference Range: Cutoff=10 Creatinine, Urine 36.9 mg/dL UI Reference Range: 20.0-300.0 pH, Urine 6.1 UI Reference Range: 4.5-8.9 Performed at: [address] [id number] Business Practices Officer: Erik Wallis PhD, Phone: [phone] Performed at: [address] [id number] Business Practices Officer: Bharath Hawthorne PhD, Phone: [phone] Performed By: #### L 3410.9992, L505.5000 #### [facility] [place], [address] Absolute lymphocyte countOrd ered By: Gustabo Pérez on 10-18-2024 Lymphocytes Auto (Unsp spec) [#/Vol] 1.15 10*3/uL 0.83-4.51 [facility] Absolute neutrophil countOrd ered By: Gustabo Pérez on 10-18-2024 Neutrophils (Bld) [#/Vol] 4.6 10*3/uL 2.0-7.7 [facility] Amphetamine detection with 1 000 ng/mL as cutoffOrdered By: Brooks Carpenter on 10-18-2024 Amphetamines Screen method >1000 ng/mL Ql (U) Negative < 200 ng/mL [facility] Anion gap in Serum or Plasma Ordered By: Gustabo Pérez on 10-18-2024 Anion gap [Moles/Vol] 12 mmol/L 5-15 [facility] Automated lymphocyte count a s percentage of total leukocytesOrdered By: Gustabo Beto on 10-18-2024 Lymphocytes/100 WBC Auto (Unsp spec) 17.4 % Low 19- [facility] BUN/creatinine ratioOrdered By: Gustabo Beto on 10-18-2024 Urea nitrogen/Creatinine [Mass ratio] 16.4 mg/mg 10- [facility] Basic Metabolic Profile (BMP )on 10-18-2024 BUN/CRE 16.4 RATIO Normal - [facility] Comment on above: Performed By: #### L 500.2500, L503.7505, L100.0100 #### [facility] [address] [place], [address] Calcium [Mass/Vol] 9.0 mg/dL Normal 7.6-11.0 [facility] Comment on above: Performed By: #### L 500.2500, L503.7505, L100.0100 #### [facility] [address] [place], [address] Chloride [Moles/Vol] 103 mmol/L Normal 98-108 [facility] Comment on above: Performed By: #### L 500.2500, L503.7505, L100.0100 #### [facility] [address] [place], [address] CO2 [Moles/Vol] 23.9 mmol/L Normal 21.0-32.0 [facility] Comment on above: Performed By: #### L 500.2500, L503.7505, L100.0100 #### [facility] [address] [place] [place], [address] Creatinine [Mass/Vol] 2.00 mg/dL High 0.70-1.20 [facility] Comment on above: Performed By: #### L 500.2500, L503.7505, L100.0100 #### [facility] [address] [place], [address] GAP 12 Normal 5-15 [facility] Comment on above: Performed By: #### L 500.2500, L503.7505, L100.0100 #### [facility] [address] [place], [address] GFR/1.73 sq M.predicted among non-blacks MDRD (S/P/Bld) [Vol rate/Area] 33 mL/min/{1.73_m2} Low >60 [facility] Comment on above: Result Comment: mL/m in/1.73m2 CKD-EPI Creatinine Equation (2020) Performed By: #### L 500.2500, L503.7505, L100.0100 #### [facility] [address] [place], [address] Glucose [Mass/Vol] 125 mg/dL High 70-99 [facility] Comment on above: Performed By: #### L 500.2500, L503.7505, L100.0100 #### [facility] [address] [place], [address] Potassium [Moles/Vol] 4.8 mmol/L Normal 3.3-5.1 [facility] Comment on above: Performed By: #### L 500.2500, L503.7505, L100.0100 #### [facility] [address] [place], [address] Sodium [Moles/Vol] 139 mmol/L Normal 133-145 [facility] Comment on above: Performed By: #### L 500.2500, L503.7505, L100.0100 #### [facility] [address] [place], [address] Urea nitrogen [Mass/Vol] 33 mg/dL High 4-19 [facility] Comment on above: Performed By: #### L 500.2500, L503.7505, L100.0100 #### [facility] [address] [place], [address] Basophil percentageOrdered B y: Gustabo Pérez on 10-18-2024 Basophils/100 WBC (Bld) 0.2 % 0-1 [facility] CBC W/Diff, Automatedon 10-01 Absolute Lymph 1.15 X10 3/uL Normal 0.83-4.51 [facility] Comment on above: Performed By: #### L 500.2500, L503.7505, L100.0100 #### [facility] [address] [place], [address] Absolute Neut 4.6 X10 3/uL Normal 2.0-7.7 [facility] Comment on above: Performed By: #### L 500.2500, L503.7505, L100.0100 #### [facility] [address] [place], [address] Basophils/100 WBC (Bld) 0.2 % Normal 0-1 [facility] Comment on above: Performed By: #### L 500.2500, L503.7505, L100.0100 #### [facility] [address] [place], [address] Eosinophils/100 WBC (Bld) 2.0 % Normal 0-5 [facility] Comment on above: Performed By: #### L 500.2500, L503.7505, L100.0100 #### [facility] [address] [place], [address] Erythrocyte distribution width (RBC) [Ratio] 14.3 % Normal 11.6-14.6 [facility] Comment on above: Performed By: #### L 500.2500, L503.7505, L100.0100 #### [facility] [address] [place], [address] Hematocrit (Bld) [Volume fraction] 36.4 % Low 40-54 [facility] Comment on above: Performed By: #### L 500.2500, L503.7505, L100.0100 #### [facility] [address] [place], [address] Hemoglobin (Bld) [Mass/Vol] 11.5 g/dL Low 13.0-16.5 [facility] Comment on above: Performed By: #### L 500.2500, L503.7505, L100.0100 #### [facility] [address] [place], [address] IG% 0.600 Normal 0.0-0.9 [facility] Comment on above: Result Comment: IG% - Immature Granulocytes (promyelocytes, myelocytes and metamyelocytes) > 1% indicates that a LEFT SHIFT is Present. Performed By: #### L 500.2500, L503.7505, L100.0100 #### [facility] [address] [place], [address] Lymphocytes/100 WBC (Bld) 17.4 % Low 19-41 [facility] Comment on above: Performed By: #### L 500.2500, L503.7505, L100.0100 #### [facility] [address] [place], [address] MCH (RBC) [Entitic mass] 29.4 pg Normal 27.0-32.0 [facility] Comment on above: Performed By: #### L 500.2500, L503.7505, L100.0100 #### [facility] [address] [place], [address] MCHC (RBC) [Mass/Vol] 31.6 g/dL Low 32-36 [facility] Comment on above: Performed By: #### L 500.2500, L503.7505, L100.0100 #### [facility] [address] [place], [address] MCV (RBC) [Entitic vol] 93.1 fL Normal 80-94 [facility] Comment on above: Performed By: #### L 500.2500, L503.7505, L100.0100 #### [facility] [address] [place], [address] Monocytes/100 WBC (Bld) 10.4 % High 0-10 [facility] Comment on above: Performed By: #### L 500.2500, L503.7505, L100.0100 #### [facility] [address] [place], [address] Neutrophils/100 WBC (Bld) 69.4 % Normal 47-70 [facility] Comment on above: Performed By: #### L 500.2500, L503.7505, L100.0100 #### [facility] [address] [place], [address] Nucleated RBC (Bld) [#/Vol] 0 10*3/uL Normal 0-5 [facility] Comment on above: Performed By: #### L 500.2500, L503.7505, L100.0100 #### [facility] [address] [place], [address] Platelet mean volume (Bld) [Entitic vol] 12.9 fL High 6.2-12.0 [facility] Comment on above: Performed By: #### L 500.2500, L503.7505, L100.0100 #### [facility] [address] [place], [address] Platelets (Bld) [#/Vol] 152 10*3/uL Normal 150-450 [facility] Comment on above: Performed By: #### L 500.2500, L503.7505, L100.0100 #### [facility] [address] [place], [address] RBC (Bld) [#/Vol] 3.91 10*6/uL Low 4.6-6.2 [facility] Comment on above: Performed By: #### L 500.2500, L503.7505, L100.0100 #### [facility] [address] [place], [address] RDW SD 48.5 fl High 35.1-43.9 [facility] Comment on above: Performed By: #### L 500.2500, L503.7505, L100.0100 #### [facility] [address] [place], [address] WBC (Bld) [#/Vol] 6.6 10*3/uL Normal 4.4-11.0 [facility] Comment on above: Performed By: #### L 500.2500, L503.7505, L100.0100 #### [facility] [address] [place], [address] Carbon dioxide, total [Moles /volume] in Central venous bloodOrdered By: Gustabo Pérez on 10-18-2024 CO2 [Moles/Vol] 23.9 mmol/L 21.0-32.0 [facility] Chloride assayOrdered By: Lydia Pérez on 10-18-2024 Chloride [Moles/Vol] 103 mmol/L 98-108 [facility] Eosinophil percentageOrdered By: Gustabo Pérez on 10-18-2024 Eosinophils/100 WBC (Bld) 2.0 % 0-5 [facility] Erythrocyte distribution wid th ratioOrdered By: Gustabo Pérez on 10-18-2024 Erythrocyte distribution width (RBC) [Ratio] 14.3 % 11.6-14.6 [facility] Erythrocyte distribution wid th standard deviationOrdered By: Gustabo Pérez on 10-18-2024 Erythrocyte distribution width (RBC) [Ratio] 48.5 fl High 35.1-43.9 [facility] Glomerular filtration rate ( GFR) estimation/1.73 sq m using serum, plasma, or whole bOrdered By: Gustabo Pérez on 10-18-2024 GFR/1.73 sq M.predicted among non-blacks MDRD (S/P/Bld) [Vol rate/Area] 33 mL/min/{1.73_m2} Low >60 [facility] Comment on above: mL/min/1.73m2 CKD-EP I Creatinine Equation (2020) Hematocrit Auto (Bld) [Volum e fraction]Ordered By: Gustabo Pérez on 10-18-2024 Hematocrit (Bld) [Volume fraction] 36.4 % Low 40-54 [facility] Hemoglobin measurementOrdere d By: Gustabo Pérez on 10-18-2024 Hemoglobin (Bld) [Mass/Vol] 11.5 g/dL Low 13.0-16.5 [facility] Immature granulocytes/100 WB C Auto (Bld)Ordered By: Gustabo Pérez on 10-18-2024 Immature granulocytes/100 WBC (Bld) 0.600 % 0.0-0.9 [facility] Comment on above: IG% - Immature Granu locytes (promyelocytes, myelocytes and metamyelocytes) > 1% indicates that a LEFT SHIFT is Present. L503.7505on 10-18-2024 Natriuretic peptide B (Bld) [Mass/Vol] 200 pg/mL Normal <=1800 [facility] Comment on above: Result Comment: Hear t Failure Unlikely: < 300 pg/mL Heart Failure Likely < 50 Years: > 450 pg/mL 50-75 Years: > 900 pg/mL >75 Years: > 1800 pg/mL Performed By: #### L 500.2500, L503.7505, L100.0100 #### [facility] [address] [place], [address] MCV (mean corpuscular volume ) determinationOrdered By: Gustabo Pérez on 10-18-2024 MCV (RBC) [Entitic vol] 93.1 fL 80-94 [facility] Mean corpuscular hemoglobin (MCH) determinationOrdered By: Gustabo Pérez on 10-18-2024 MCH (RBC) [Entitic mass] 29.4 pg 27.0-32.0 [facility] Mean corpuscular hemoglobin concentration (MCHC) determinationOrdered By: Gustabo Pérez on 10-18-2024 MCHC (RBC) [Mass/Vol] 31.6 g/dL Low 32-36 [facility] Mean platelet volume determi nationOrdered By: Gustabo Pérez on 10-18-2024 Platelet mean volume (Bld) [Entitic vol] 12.9 fL High 6.2-12.0 [facility] Monocyte percentageOrdered B y: Gustabo Pérez on 10-18-2024 Monocytes/100 WBC (Bld) 10.4 % High 0-10 [facility] Natriuretic peptide.B prohor efrem N-Terminal [Mass/volume] in Serum or PlasmaOrdered By: Gustabo Pérez on 10-18-2024 Natriuretic peptide.B prohormone N-Terminal [Mass/Vol] 200 pg/mL <1800 [facility] Comment on above: Heart Failure Unlike ly: < 300 pg/mLHeart Failure Likely< 50 Years: > 450 pg/mL50-75 Years: > 900 pg/mL>75 Years: > 1800 pg/mL Neutrophil percentageOrdered By: Gustabo Pérez on 10-18-2024 Neutrophils/100 WBC (Bld) 69.4 % 47-70 [facility] No Panel InformationOrdered By: Brooks Carpenter on 10-18-2024 Urine Buprenorphine Qualitative Negative < 200 ng/mL [facility] Urine Oxycodone Screen Negative < 100 ng/mL [facility] Nucleated red blood cell per centageOrdered By: Gustabo Pérez on 10-18-2024 Nucleated RBC/100 WBC (Bld) [Ratio] 0 % 0-5 [facility] Platelet countOrdered By: Lydia Pérez on 10-18-2024 Platelets (Bld) [#/Vol] 152 10*3/uL 150-450 [facility] Potassium measurement (mass/ volume)Ordered By: Gustabo Pérez on 10-18-2024 Potassium (Unsp spec) [Mass/Vol] 4.8 mmol/L 3.3-5.1 [facility] Quantitative urine opiates m easurementOrdered By: Brooks Carpenter on 10-18-2024 Opiates Ql (U) Positive < 300 ng/mL [facility] Comment on above: If confirmation test ing is needed, a separate order will be required to send out testing to the reference laboratory. RBC Auto (Bld) [#/Vol]Ordere d By: Gustabo Pérez on 10-18-2024 RBC (Bld) [#/Vol] 3.91 10*6/uL Low 4.6-6.2 [facility] Screening urine fentanyl ritu surementOrdered By: Brooks Carpenter on 10-18-2024 fentaNYL Screen Ql (U) Negative [facility] Serum creatinine measurement (mass/volume)Ordered By: Gustabo Pérez on 10-18-2024 Creatinine [Mass/Vol] 2.00 mg/dL High 0.70-1.20 [facility] Serum glucose measurement (m ass/volume)Ordered By: Gustabo Pérez on 10-18-2024 Glucose [Mass/Vol] 125 mg/dL High 70-99 [facility] Serum or plasma calcium francine urement (mass/volume)Ordered By: Gustabo Pérez on 10-18-2024 Calcium [Mass/Vol] 9.0 mg/dL 7.6-11.0 [facility] Serum or plasma urea nitroge n measurement (mass/volume)Ordered By: Gustabo Pérez on 10-18-2024 Urea nitrogen [Mass/Vol] 33 mg/dL High 4-19 [facility] Sodium levelOrdered By: Gustabo Pérez on 10-18-2024 Sodium [Moles/Vol] 139 mmol/L 133-145 [facility] Urine Drug Screen (VISTA)on 10-18-2024 AMPHETAMINES Negative Normal <1000 ng/mL [facility] Comment on above: Order Comment: PAIN MANAGMENT Performed By: #### L 3410.9992, L505.5000 #### [facility] [address] [place] [address] BARBITIURATES Negative Normal < 200 ng/mL [facility] Comment on above: Order Comment: PAIN MANAGMENT Performed By: #### L 3410.9992, L505.5000 #### [facility] [address] [place] [id number] BENZODIAZIPINE Negative Normal < 200 ng/mL [facility] Comment on above: Order Comment: PAIN MANAGMENT Performed By: #### L 3410.9992, L505.5000 #### [facility] [address] [place] [id number] BUP Ur Drug Scr Negative Normal < 200 ng/mL [facility] Comment on above: Order Comment: PAIN MANAGMENT Performed By: #### L 3410.9992, L505.5000 #### [facility] [address] [place], [address] COCAINE Negative Normal < 300 ng/mL [facility] Comment on above: Order Comment: PAIN MANAGMENT Performed By: #### L 3410.9992, L505.5000 #### [facility] [address] [place], [address] Fentanyl Negative Normal [facility] Comment on above: Order Comment: PAIN MANAGMENT Performed By: #### L 3410.9992, L505.5000 #### [facility] [address] [place], [address] METHADONE Negative Normal < 300 ng/mL [facility] Comment on above: Order Comment: PAIN MANAGMENT Performed By: #### L 3410.9992, L505.5000 #### [facility] [address] [place], [address] OPIATES Positive Normal < 300 ng/mL [facility] Comment on above: Order Comment: PAIN MANAGMENT Result Comment: If c onfirmation testing is needed, a separate order will be required to send out testing to the reference laboratory. Performed By: #### L 3410.9992, L505.5000 #### [facility] [address] [place], [address] OXYCODONE Negative Normal < 100 ng/mL [facility] Comment on above: Order Comment: PAIN MANAGMENT Performed By: #### L 3410.9992, L505.5000 #### [facility] [address] [place], [address] PCP Negative Normal < 25 ng/mL [facility] Comment on above: Order Comment: PAIN MANAGMENT Performed By: #### L 3410.9992, L505.5000 #### [facility] [address] [place], [address] THC Negative Normal < 50 ng/mL [facility] Comment on above: Order Comment: PAIN MANAGMENT Performed By: #### L 3410.9992, L505.5000 #### [facility] [address] [place], [place], [id number] Urine benzodiazepine levelOr dered By: Brooks Hoyti on 10-18-2024 Benzodiazepines Ql (U) Negative < 200 ng/mL [facility] Urine cocaine levelOrdered B y: Brooks Basali on 10-18-2024 Cocaine Ql (U) Negative < 300 ng/mL [facility] Urine [id number] abinol (THC) measurementOrdered By: Brooks Carpenter on 10-18-2024 Cannabinoids Screen Ql (U) Negative < 50 ng/mL [facility] Urine phencyclidine (PCP) de tectionOrdered By: Brooks Hoyti on 10-18-2024 Phencyclidine Ql (U) Negative < 25 ng/mL [facility] White blood cell (WBC) count Ordered By: Gustabo Pérez on 10-18-2024 WBC (Bld) [#/Vol] 6.6 10*3/uL 4.4-11.0 [facility] Absolute lymphocyte countOrd ered By: Marycarmen Rodriguez on 09-29-2024 Lymphocytes Auto (Unsp spec) [#/Vol] 1.35 10*3/uL 0.83-4.51 [facility] Absolute neutrophil countOrd ered By: Marycarmen Rodriguez on 09-29-2024 Neutrophils (Bld) [#/Vol] 9.2 10*3/uL High 2.0-7.7 [facility] Automated lymphocyte count a s percentage of total leukocytesOrdered By: Marycarmen Rodriguez on 09-29-2024 Lymphocytes/100 WBC Auto (Unsp spec) 10.9 % Low 19-41 [facility] Basophil percentageOrdered B y: Marycarmen Rodriguez on 09-29-2024 Basophils/100 WBC (Bld) 0.6 % 0-1 [facility] CBC W/Diff, Automatedon 09-02 Absolute Lymph 1.35 X10 3/uL Normal 0.83-4.51 [facility] Comment on above: Performed By: #### L 3410.9992, L505.5000 #### [facility] [address] [place], [address] Absolute Neut 9.2 X10 3/uL High 2.0-7.7 [facility] Comment on above: Performed By: #### L 3410.9992, L505.5000 #### [facility] [address] [place], [address] Basophils/100 WBC (Bld) 0.6 % Normal 0-1 [facility] Comment on above: Performed By: #### L 3410.9992, L505.5000 #### [facility] [address] [place], [address] Eosinophils/100 WBC (Bld) 0.7 % Normal 0-5 [facility] Comment on above: Performed By: #### L 3410.9992, L505.5000 #### [facility] [address] [place], [address] Erythrocyte distribution width (RBC) [Ratio] 14.2 % Normal 11.6-14.6 [facility] Comment on above: Performed By: #### L 3410.9992, L505.5000 #### [facility] [address] [place], [address] Hematocrit (Bld) [Volume fraction] 37.4 % Low 40-54 [facility] Comment on above: Performed By: #### L 3410.9992, L505.5000 #### [facility] [address] [place], [address] Hemoglobin (Bld) [Mass/Vol] 12.1 g/dL Low 13.0-16.5 [facility] Comment on above: Performed By: #### L 3410.9992, L505.5000 #### [facility] [address] [place], [address] IG% 3.600 High 0.0-0.9 [facility] Comment on above: Result Comment: IG% - Immature Granulocytes (promyelocytes, myelocytes and metamyelocytes) > 1% indicates that a LEFT SHIFT is Present. Performed By: #### L 3410.9992, L505.5000 #### [facility] [address] [place] [place], [address] Lymphocytes/100 WBC (Bld) 10.9 % Low 19-41 [facility] Comment on above: Performed By: #### L 3410.9992, L505.5000 #### [facility] [address] [place], [address] MCH (RBC) [Entitic mass] 29.6 pg Normal 27.0-32.0 [facility] Comment on above: Performed By: #### L 3410.9992, L505.5000 #### [facility] [address] [place], [address] MCHC (RBC) [Mass/Vol] 32.4 g/dL Normal 32-36 [facility] Comment on above: Performed By: #### L 3410.9992, L505.5000 #### [facility] [address] [place], [address] MCV (RBC) [Entitic vol] 91.4 fL Normal 80-94 [facility] Comment on above: Performed By: #### L 3410.9992, L505.5000 #### [facility] [address] [place], [address] Monocytes/100 WBC (Bld) 9.9 % Normal 0-10 [facility] Comment on above: Performed By: #### L 3410.9992, L505.5000 #### [facility] [address] [place], [address] Neutrophils/100 WBC (Bld) 74.3 % High 47-70 [facility] Comment on above: Performed By: #### L 3410.9992, L505.5000 #### [facility] [address] [place], [address] Nucleated RBC (Bld) [#/Vol] 0 10*3/uL Normal 0-5 [facility] Comment on above: Performed By: #### L 3410.9992, L505.5000 #### [facility] [address] [place], [address] Platelet mean volume (Bld) [Entitic vol] 12.3 fL High 6.2-12.0 [facility] Comment on above: Performed By: #### L 3410.9992, L505.5000 #### [facility] [address] [place], [address] Platelets (Bld) [#/Vol] 169 10*3/uL Normal 150-450 [facility] Comment on above: Performed By: #### L 3410.9992, L505.5000 #### [facility] [address] [place], [address] RBC (Bld) [#/Vol] 4.09 10*6/uL Low 4.6-6.2 [facility] Comment on above: Performed By: #### L 3410.9992, L505.5000 #### [facility] [address] [place], [address] RDW SD 47.4 fl High 35.1-43.9 [facility] Comment on above: Performed By: #### L 3410.9992, L505.5000 #### [facility] [address] [place], [address] WBC (Bld) [#/Vol] 12.4 10*3/uL High 4.4-11.0 [facility] Comment on above: Performed By: #### L 3410.9992, L505.5000 #### [facility] [address] [place], [address] Eosinophil percentageOrdered By: Marycarmen Rodriguez on 09-29-2024 Eosinophils/100 WBC (Bld) 0.7 % 0-5 [facility] Erythrocyte distribution wid th ratioOrdered By: Marycarmen Rodriguez on 09-29-2024 Erythrocyte distribution width (RBC) [Ratio] 14.2 % 11.6-14.6 [facility] Erythrocyte distribution wid th standard deviationOrdered By: Marycarmen Rodriguez on 09-29-2024 Erythrocyte distribution width (RBC) [Ratio] 47.4 fl High 35.1-43.9 [facility] Ferritinon 09-29-2024 Ferritin [Mass/Vol] 454 ng/mL High 37-417 [facility] Comment on above: Performed By: #### L 3410.9992, L505.5000 #### [facility] [address] [place], [address] Hematocrit Auto (Bld) [Volum e fraction]Ordered By: Marycarmen Mandelman on 09-29-2024 Hematocrit (Bld) [Volume fraction] 37.4 % Low 40-54 [facility] Hemoglobin measurementOrdere d By: Marycarmen ChiuJennifer on 09-29-2024 Hemoglobin (Bld) [Mass/Vol] 12.1 g/dL Low 13.0-16.5 [facility] Immature granulocytes/100 WB C Auto (Bld)Ordered By: Marycarmen Jennifer on 09-29-2024 Immature granulocytes/100 WBC (Bld) 3.600 % High 0.0-0.9 [facility] Comment on above: IG% - Immature Granu locytes (promyelocytes, myelocytes and metamyelocytes) > 1% indicates that a LEFT SHIFT is Present. Ironon 09-29-2024 Iron [Mass/Vol] 80 ug/dL Normal 65-175 [facility] Comment on above: Performed By: #### L 3410.9992, L505.5000 #### [facility] [address] [place], [address] Iron measurement (mass/mass) Ordered By: Marycarmen Rodriguez on 09-29-2024 Iron (Unsp spec) [Mass/Mass] 80 ug/dL 65-175 [facility] MCV (mean corpuscular volume ) determinationOrdered By: Marycarmen Rodriguez on 09-29-2024 MCV (RBC) [Entitic vol] 91.4 fL 80-94 [facility] Mean corpuscular hemoglobin (MCH) determinationOrdered By: Marycarmen Rodriguez on 09-29-2024 MCH (RBC) [Entitic mass] 29.6 pg 27.0-32.0 [facility] Mean corpuscular hemoglobin concentration (MCHC) determinationOrdered By: Marycarmen Rodriguez on 09-29-2024 MCHC (RBC) [Mass/Vol] 32.4 g/dL 32-36 [facility] Mean platelet volume determi nationOrdered By: Marycarmen Rodriguez on 09-29-2024 Platelet mean volume (Bld) [Entitic vol] 12.3 fL High 6.2-12.0 [facility] Monocyte percentageOrdered B y: Marycarmen Rodriguez on 09-29-2024 Monocytes/100 WBC (Bld) 9.9 % 0-10 [facility] Neutrophil percentageOrdered By: Marycarmen Rodriguez on 09-29-2024 Neutrophils/100 WBC (Bld) 74.3 % High 47-70 [facility] Nucleated red blood cell per centageOrdered By: Marycarmen Rodriguez on 09-29-2024 Nucleated RBC/100 WBC (Bld) [Ratio] 0 % 0-5 [facility] Platelet countOrdered By: Ap Rodriguez on 09-29-2024 Platelets (Bld) [#/Vol] 169 10*3/uL 150-450 [facility] RBC Auto (Bld) [#/Vol]Ordere d By: Marycarmen Rodriguez on 09-29-2024 RBC (Bld) [#/Vol] 4.09 10*6/uL Low 4.6-6.2 [facility] Serum or plasma ferritin ritu surement (mass/volume)Ordered By: Marycarmen Rodriguez on 09-29-2024 Ferritin [Mass/Vol] 454 ng/mL High 37-417 [facility] Vitamin B12on 05-30-2025 Cobalamin (Vitamin B12) [Mass/Vol] 766 pg/mL Normal 180-914 [facility] Comment on above: Performed By: #### L 3410.9992, L505.5000 #### [facility] [address] [place], [place], [id number] Vitamin B12 ser/plasOrdered By: Marycarmen Rodriguez on 09-29-2024 Cobalamin (Vitamin B12) [Mass/Vol] 766 pg/mL 180-914 [facility] White blood cell (WBC) count Ordered By: Marycarmen Rodriguez on 09-29-2024 WBC (Bld) [#/Vol] 12.4 10*3/uL High 4.4-11.0 [facility] Absolute lymphocyte countOrd ered By: ELIAZAR Olivas on 09-20-2024 Lymphocytes Auto (Unsp spec) [#/Vol] 1.44 10*3/uL 0.83-4.51 [facility] Absolute neutrophil countOrd ered By: ELIAZAR Olivas on 09-20-2024 Neutrophils (Bld) [#/Vol] 6.6 10*3/uL 2.0-7.7 [facility] Automated lymphocyte count a s percentage of total leukocytesOrdered By: ELIAZAR Olivas on 09-20-2024 Lymphocytes/100 WBC Auto (Unsp spec) 15.5 % Low 19-41 [facility] Basophil percentageOrdered B y: ELIAZAR Olivas on 09-20-2024 Basophils/100 WBC (Bld) 0.3 % 0-1 [facility] CBC W/Diff, Automatedon 09-01 Absolute Lymph 1.44 X10 3/uL Normal 0.83-4.51 [facility] Comment on above: Performed By: #### L 100.0100, L503.8885 #### [facility] [address] [place], [place], [id number] Absolute Neut 6.6 X10 3/uL Normal 2.0-7.7 [facility] Comment on above: Performed By: #### L 100.0100, L503.7505 #### [facility] [address] [place], [address] Basophils/100 WBC (Bld) 0.3 % Normal 0-1 [facility] Comment on above: Performed By: #### L 100.0100, L503.7505 #### [facility] [address] [place], [address] Eosinophils/100 WBC (Bld) 1.5 % Normal 0-5 [facility] Comment on above: Performed By: #### L 100.0100, L503.7505 #### [facility] [address] [place], [address] Erythrocyte distribution width (RBC) [Ratio] 14.1 % Normal 11.6-14.6 [facility] Comment on above: Performed By: #### L 100.0100, L503.7505 #### [facility] [address] [place], [address] Hematocrit (Bld) [Volume fraction] 34.8 % Low 40-54 [facility] Comment on above: Performed By: #### L 100.0100, L503.7505 #### [facility] [address] [place], [address] Hemoglobin (Bld) [Mass/Vol] 11.1 g/dL Low 13.0-16.5 [facility] Comment on above: Performed By: #### L 100.0100, L503.7505 #### [facility] [address] [place], [address] IG% 0.800 Normal 0.0-0.9 [facility] Comment on above: Result Comment: IG% - Immature Granulocytes (promyelocytes, myelocytes and metamyelocytes) > 1% indicates that a LEFT SHIFT is Present. Performed By: #### L 100.0100, L503.7505 #### [facility] [address] [place], [address] Lymphocytes/100 WBC (Bld) 15.5 % Low 19-41 [facility] Comment on above: Performed By: #### L 100.0100, L503.7505 #### [facility] [address] [place], [address] MCH (RBC) [Entitic mass] 29.4 pg Normal 27.0-32.0 [facility] Comment on above: Performed By: #### L 100.0100, L503.7505 #### [facility] [address] [place], [address] MCHC (RBC) [Mass/Vol] 31.9 g/dL Low 32-36 [facility] Comment on above: Performed By: #### L 100.0100, L503.7505 #### [facility] [address] [place], [address] MCV (RBC) [Entitic vol] 92.1 fL Normal 80-94 [facility] Comment on above: Performed By: #### L 100.0100, L503.7505 #### [facility] [address] [place], [address] Monocytes/100 WBC (Bld) 11.1 % High 0-10 [facility] Comment on above: Performed By: #### L 100.0100, L503.7505 #### [facility] [address] [place], [address] Neutrophils/100 WBC (Bld) 70.8 % High 47-70 [facility] Comment on above: Performed By: #### L 100.0100, L503.7505 #### [facility] [address] [place], [address] Nucleated RBC (Bld) [#/Vol] 0 10*3/uL Normal 0-5 [facility] Comment on above: Performed By: #### L 100.0100, L503.7505 #### [facility] [address] [place], [address] Platelet mean volume (Bld) [Entitic vol] 12.6 fL High 6.2-12.0 [facility] Comment on above: Performed By: #### L 100.0100, L503.7505 #### [facility] [address] [place], [address] Platelets (Bld) [#/Vol] 166 10*3/uL Normal 150-450 [facility] Comment on above: Performed By: #### L 100.0100, L503.7505 #### [facility] [address] [place], [address] RBC (Bld) [#/Vol] 3.78 10*6/uL Low 4.6-6.2 [facility] Comment on above: Performed By: #### L 100.0100, L503.7505 #### [facility] [address] [place], [address] RDW SD 48.0 fl High 35.1-43.9 [facility] Comment on above: Performed By: #### L 100.0100, L503.7505 #### [facility] [address] [place], [address] WBC (Bld) [#/Vol] 9.3 10*3/uL Normal 4.4-11.0 [facility] Comment on above: Performed By: #### L 100.0100, L503.7505 #### [facility] [address] [place], [address] Eosinophil percentageOrdered By: ELIAZAR Olivas on 09-20-2024 Eosinophils/100 WBC (Bld) 1.5 % 0-5 [facility] Erythrocyte distribution wid th ratioOrdered By: ELIAZAR Olivas on 09-20-2024 Erythrocyte distribution width (RBC) [Ratio] 14.1 % 11.6-14.6 [facility] Erythrocyte distribution wid th standard deviationOrdered By: ELIAZAR Olivas on 09-20-2024 Erythrocyte distribution width (RBC) [Ratio] 48.0 fl High 35.1-43.9 [facility] Hematocrit Auto (Bld) [Volum e fraction]Ordered By: ELIAZAR Olivas on 09-20-2024 Hematocrit (Bld) [Volume fraction] 34.8 % Low 40-54 [facility] Hemoglobin measurementOrdere d By: ELIAZAR Olivas on 09-20-2024 Hemoglobin (Bld) [Mass/Vol] 11.1 g/dL Low 13.0-16.5 [facility] Immature granulocytes/100 WB C Auto (Bld)Ordered By: ELIAZAR Olivas on 09-20-2024 Immature granulocytes/100 WBC (Bld) 0.800 % 0.0-0.9 [facility] Comment on above: IG% - Immature Granu locytes (promyelocytes, myelocytes and metamyelocytes) > 1% indicates that a LEFT SHIFT is Present. L503.7505on 09-20-2024 Natriuretic peptide B (Bld) [Mass/Vol] 84 pg/mL Normal <=1800 [facility] Comment on above: Result Comment: Hear t Failure Unlikely: < 300 pg/mL Heart Failure Likely < 50 Years: > 450 pg/mL 50-75 Years: > 900 pg/mL >75 Years: > 1800 pg/mL Performed By: #### L 100.0100, L503.7505 #### [facility] [address] [place], [address] MCV (mean corpuscular volume ) determinationOrdered By: ELIAZAR Olivas on 09-20-2024 MCV (RBC) [Entitic vol] 92.1 fL 80-94 [facility] Mean corpuscular hemoglobin (MCH) determinationOrdered By: ELIAZAR Olivas on 09-20-2024 MCH (RBC) [Entitic mass] 29.4 pg 27.0-32.0 [facility] Mean corpuscular hemoglobin concentration (MCHC) determinationOrdered By: ELIAZAR Olivas on 09-20-2024 MCHC (RBC) [Mass/Vol] 31.9 g/dL Low 32-36 [facility] Mean platelet volume determi nationOrdered By: ELIAZAR Olivas on 09-20-2024 Platelet mean volume (Bld) [Entitic vol] 12.6 fL High 6.2-12.0 [facility] Monocyte percentageOrdered B y: ELIAZAR Olivas on 09-20-2024 Monocytes/100 WBC (Bld) 11.1 % High 0-10 [facility] Natriuretic peptide.B prohor efrem N-Terminal [Mass/volume] in Serum or PlasmaOrdered By: ELIAZAR Olivas on 09-20-2024 Natriuretic peptide.B prohormone N-Terminal [Mass/Vol] 84 pg/mL <1800 [facility] Comment on above: Heart Failure Unlike ly: < 300 pg/mLHeart Failure Likely< 50 Years: > 450 pg/mL50-75 Years: > 900 pg/mL>75 Years: > 1800 pg/mL Neutrophil percentageOrdered By: ELIAZAR Olivas on 09-20-2024 Neutrophils/100 WBC (Bld) 70.8 % High 47-70 [facility] Nucleated red blood cell per centageOrdered By: ELIAZAR Olivas on 09-20-2024 Nucleated RBC/100 WBC (Bld) [Ratio] 0 % 0-5 [facility] Platelet countOrdered By: ELIAZAR Olivas on 09-20-2024 Platelets (Bld) [#/Vol] 166 10*3/uL 150-450 [facility] Pulmonary Visit Reporton Pulmonary Visit Report [facility] of [address] [place] [address] OFFICE VISIT Date of Service: 09/20/24 MR#: [id number] Acct: [id number] Name: ERIBERTO RICO Rep #: [id number] : 1945 Provider: Maren Olivas NP Age/Sex: 79/M Location: [facility] Status: Signed Assessment and Plan Assessment and [...] quitting comp (more content not included)... Normal [facility] RBC Auto (Bld) [#/Vol]Ordere d By: ELIAZAR Olivas on 09-20-2024 RBC (Bld) [#/Vol] 3.78 10*6/uL Low 4.6-6.2 [facility] White blood cell (WBC) count Ordered By: ELIAZAR Olivas on 09-20-2024 WBC (Bld) [#/Vol] 9.3 10*3/uL 4.4-11.0 [facility] 6 Minute Walk Teston 025 6 Minute Walk Test y [facility]/Neurology [address] [place] [address] MR#: [id number] Acct: [id number] Name: ERIBERTO RICO Rep #: [id number] : 1945 78 From: Zen [place] DO Referring Dr: Marni Horn IT PROFESSIONAL IT PROFESSIONAL-C Status: REG CLI Location: [facility] Date: Sex: M C PSN 6 Minute Walk Test 6 Minute Walk Test 6 Minute Walk Test: 6 Minute Walk Test PSN:6-Minute Walk Test Start: 07/18/24 06:38 Freq: Status: Active Protocol: RESP.6MINW Document 07/18/24 06:00 [facility] (Rec: 07/18/24 06:47 [facility] [id number]) 6 Minute Walk Test Date Performed 07/18/24 Time Performed 06:00 Height 5 ft 9 in Weight: 230 lb Weight in Pounds 230.[address]: Marni Horn IT PROFESSIONAL Assistive device Cane used: Pre-test Oxygen Delivery [...] Dictated: 07/18/24 1032 Date Transcribed: 07/18/24 103 Head Shipper: Dr. Zen East DO Signed Normal [facility] Pulmonary Visit Reporton Pulmonary Visit Report [facility] [place] [address] [place] [address] OFFICE VISIT Date of Service: 07/03/24 MR#: [id number] Acct: [id number] Name: ERIBERTO RICO Rep #: [id number] : 1945 Provider: YRN Horn Age/Sex: 78/M Location: [facility] Status: Signed Assessment and Plan Assessment and [...] nocturia. Compli (more content not included)... Normal [facility] BUN/creatinine ratioOrdered By: Marycarmen Rodriguez on 06-30-2024 Urea nitrogen/Creatinine [Mass ratio] 17.4 mg/mg - [facility] Basic Metabolic Profile (BMP )on 06-30-2024 Anion gap [Moles/Vol] 11 mmol/L Normal 5-15 [facility] Comment on above: Performed By: #### L 3410.9992, L505.5000 #### [facility] [address] [facility] [address] BUN/CRE 17.4 RATIO Normal - [facility] Comment on above: Performed By: #### L 3410.9992, L505.5000 #### [facility] [address] [place], [address] Calcium [Mass/Vol] 9.7 mg/dL Normal 7.6-11.0 [facility] Comment on above: Performed By: #### L 3410.9992, L505.5000 #### [facility] [address] [place], [address] Chloride [Moles/Vol] 105 mmol/L Normal 96-108 [facility] Comment on above: Performed By: #### L 3410.9992, L505.5000 #### [facility] [address] [place], [address] CO2 [Moles/Vol] 25.3 mmol/L Normal 22.0-29.0 [facility] Comment on above: Performed By: #### L 3410.9992, L505.5000 #### [facility] [address] [place], [address] Creatinine [Mass/Vol] 1.80 mg/dL High 0.70-1.20 [facility] Comment on above: Performed By: #### L 3410.9992, L505.5000 #### [facility] [address] [place], [address] GFR/1.73 sq M.predicted among non-blacks MDRD (S/P/Bld) [Vol rate/Area] 38 mL/min/{1.73_m2} Low >60 [facility] Comment on above: Result Comment: mL/m in/1.73m2 CKD-EPI Creatinine Equation (2020) Performed By: #### L 3410.9992, L505.5000 #### [facility] [address] [place], [address] Glucose [Mass/Vol] 112 mg/dL High 70-99 [facility] Comment on above: Performed By: #### L 3410.9992, L505.5000 #### [facility] [address] [place], [address] Potassium [Moles/Vol] 4.8 mmol/L Normal 3.3-5.1 [facility] Comment on above: Performed By: #### L 3410.9992, L505.5000 #### [facility] [address] [place], [address] Sodium [Moles/Vol] 141 mmol/L Normal 133-145 [facility] Comment on above: Performed By: #### L 3410.9992, L505.5000 #### [facility] [address] [place], [address] Urea nitrogen [Mass/Vol] 31 mg/dL High 4-19 [facility] Comment on above: Performed By: #### L 3410.9992, L505.5000 #### [facility] [place], [address] Carbon dioxide measurementOr dered By: Marycarmen Rodriguez on 06-30-2024 CO2 [Moles/Vol] 25.3 mmol/L 22.0-29.0 [facility] Chloride measurementOrdered By: Marycarmen Rodriguez on 06-30-2024 Chloride [Moles/Vol] 105 mmol/L 96-108 [facility] GFR/1.73 sq M.predicted ana lilia g non-blacks MDRD (S/P/Bld) [Vol rate/Area]Ordered By: Marycarmen Rodriguez on 06-30-2024 Estimated GFR (MDRD) Non-Af Amer 38 Low >60 [facility] Comment on above: mL/min/1.73m2 CKD-EP I Creatinine Equation (2020) Glomerular filtration rate ( GFR) estimation/1.73 sq m using serum, plasma, or whole bOrdered By: Marycarmen Rodriguez on 06-30-2024 GFR/1.73 sq M.predicted among non-blacks MDRD (S/P/Bld) [Vol rate/Area] 38 mL/min/{1.73_m2} Low >60 [facility] Comment on above: mL/min/1.73m2 CKD-EP I Creatinine Equation (2020) Serum creatinine measurement (mass/volume)Ordered By: Marycarmen Rodriguez on 06-30-2024 Creatinine [Mass/Vol] 1.80 mg/dL High 0.70-1.20 [facility] Serum glucose measurement (m ass/volume)Ordered By: Marycarmen Rodriguez on 06-30-2024 Glucose [Mass/Vol] 112 mg/dL High 70-99 [facility] Serum or plasma anion gap de termination (moles/volume)Ordered By: Marycarmen Rodriguez on 06-30-2024 Anion gap [Moles/Vol] 11 mmol/L 5-15 [facility] Serum or plasma calcium francine urement (mass/volume)Ordered By: Marycarmen Rodriguez on 06-30-2024 Calcium [Mass/Vol] 9.7 mg/dL 7.6-11.0 [facility] Serum or plasma potassium me asurementOrdered By: Marycarmen Rodriguez on 06-30-2024 Potassium [Moles/Vol] 4.8 mmol/L 3.3-5.1 [facility] Serum or plasma sodium measu rement (moles/volume)Ordered By: Marycarmen Rodriguez on 06-30-2024 Sodium [Moles/Vol] 141 mmol/L 133-145 [facility] Serum or plasma urea nitroge n measurement (mass/volume)Ordered By: Marycarmen Rodriguez on 06-30-2024 Urea nitrogen [Mass/Vol] 31 mg/dL High 4-19 [facility] Absolute neutrophil countOrd ered By: Gustabo Pérez on 04-17-2024 Neutrophils (Bld) [#/Vol] 6.0 10*3/uL 2.0-7.7 [facility] BNP (brain natriuretic pepti de measurement)Ordered By: Gustabo Pérez on 04-17-2024 Natriuretic peptide B (Bld) [Mass/Vol] 37.2 pg/mL 0-100 [facility] BNP,B-Type NATRIURETIC PEPTI Sharon 04-17-2024 Natriuretic peptide B (Bld) [Mass/Vol] 37.2 pg/mL Normal 0-100 [facility] Comment on above: Performed By: #### L 100.0100, L503.6620, L500.2500 #### [facility] [address] [place], [address] Basic Metabolic Profile (BMP )on 04-17-2024 BUN/CRE 11.2 RATIO Normal 10-20 [facility] Comment on above: Performed By: #### L 100.0100, L503.6620, L500.2500 #### [facility] [address] [place], [address] CA,Total 9.0 mg/dL Normal 8.5-10.1 [facility] Comment on above: Performed By: #### L 100.0100, L503.6620, L500.2500 #### [facility] [address] [place], [address] Chloride [Moles/Vol] 107 mmol/L Normal 98-107 [facility] Comment on above: Performed By: #### L 100.0100, L503.6620, L500.2500 #### [facility] [address] [place], [address] CO2 [Moles/Vol] 27.0 mmol/L Normal 21.0-32.0 [facility] Comment on above: Performed By: #### L 100.0100, L503.6620, L500.2500 #### [facility] [address] [place], [address] Creatinine [Mass/Vol] 1.79 mg/dL High 0.70-1.30 [facility] Comment on above: Result Comment: The validity of the calculated GFR GFRAA in patients over 70 years has not been determined. Clinical correlation is essential. Performed By: #### L 100.0100, L503.6620, L500.2500 #### [facility] [address] [place], [address] EST GFR - AA 47 mL/min Low >60 [facility] Comment on above: Result Comment: Afri can Mexican GFR Calc Performed By: #### L 100.0100, L503.6620, L500.2500 #### [facility] [address] [place], [address] GAP 4 Low 5-15 [facility] Comment on above: Performed By: #### L 100.0100, L503.6620, L500.2500 #### [facility] [address] [place], [address] GFR/1.73 sq M.predicted among non-blacks MDRD (S/P/Bld) [Vol rate/Area] 39 mL/min/{1.73_m2} Low >60 [facility] Comment on above: Result Comment: Non- GFR Calc Performed By: #### L 100.0100, L503.6620, L500.2500 #### [facility] [address] [place], [address] Glucose [Mass/Vol] 228 mg/dL High 74-106 [facility] Comment on above: Result Comment: Gluc ose result greater than or equal to 200 mg/dL suggests DIABETES MELLITUS per A.D.A. criteria. Performed By: #### L 100.0100, L503.6620, L500.2500 #### [facility] [address] [place], [address] Potassium [Moles/Vol] 4.8 mmol/L Normal 3.5-5.1 [facility] Comment on above: Performed By: #### L 100.0100, L503.6620, L500.2500 #### [facility] [address] [place], [address] Sodium [Moles/Vol] 138 mmol/L Normal 136-145 [facility] Comment on above: Performed By: #### L 100.0100, L503.6620, L500.2500 #### [facility] [address] [place], [address] Urea nitrogen [Mass/Vol] 20 mg/dL High 7-18 [facility] Comment on above: Performed By: #### L 100.0100, L503.6620, L500.2500 #### [facility] [address] [place], [address] Basophil percentageOrdered B y: Gustabo Pérez on 04-17-2024 Basophils/100 WBC (Bld) 0.5 % 0-1 [facility] Blood urea nitrogen (BUN)/cr eatinine ratioOrdered By: Gustabo Pérez on 04-17-2024 Urea nitrogen/Creatinine [Mass ratio] 11.2 mg/mg 10-20 [facility] CBC W/Diff, Automatedon 04-02 Absolute Lymph 1.29 X10 3/uL Normal 0.83-4.51 [facility] Comment on above: Performed By: #### L 100.0100, L503.6620, L500.2500 #### [facility] [address] [place] [place], [address] Absolute Neut 6.0 X10 3/uL Normal 2.0-7.7 [facility] Comment on above: Performed By: #### L 100.0100, L503.6620, L500.2500 #### [facility] [address] [place], [address] Basophils/100 WBC (Bld) 0.5 % Normal 0-1 [facility] Comment on above: Performed By: #### L 100.0100, L503.6620, L500.2500 #### [facility] [address] [place], [address] Eosinophils/100 WBC (Bld) 1.2 % Normal 0-5 [facility] Comment on above: Performed By: #### L 100.0100, L503.6620, L500.2500 #### [facility] [address] [place], [address] Erythrocyte distribution width (RBC) [Ratio] 13.9 % Normal 11.6-14.6 [facility] Comment on above: Performed By: #### L 100.0100, L503.6620, L500.2500 #### [facility] [address] [place], [address] Hematocrit (Bld) [Volume fraction] 41.0 % Normal 40-54 [facility] Comment on above: Performed By: #### L 100.0100, L503.6620, L500.2500 #### [facility] [address] [place], [address] Hemoglobin (Bld) [Mass/Vol] 13.2 g/dL Normal 13.0-16.5 [facility] Comment on above: Performed By: #### L 100.0100, L503.6620, L500.2500 #### [facility] [address] [place], [address] IG% 0.600 Normal 0.0-0.9 [facility] Comment on above: Result Comment: IG% - Immature Granulocytes (promyelocytes, myelocytes and metamyelocytes) > 1% indicates that a LEFT SHIFT is Present. Performed By: #### L 100.0100, L503.6620, L500.2500 #### [facility] [address] [place], [address] Lymphocytes/100 WBC (Bld) 15.7 % Low 19-41 [facility] Comment on above: Performed By: #### L 100.0100, L503.6620, L500.2500 #### [facility] [address] [place], [address] MCH (RBC) [Entitic mass] 29.2 pg Normal 27.0-32.0 [facility] Comment on above: Performed By: #### L 100.0100, L503.6620, L500.2500 #### [facility] [address] [place], [address] MCHC (RBC) [Mass/Vol] 32.2 g/dL Normal 32-36 [facility] Comment on above: Performed By: #### L 100.0100, L503.6620, L500.2500 #### [facility] [address] [place], [address] MCV (RBC) [Entitic vol] 90.7 fL Normal 80-94 [facility] Comment on above: Performed By: #### L 100.0100, L503.6620, L500.2500 #### [facility] [address] [place], [address] Monocytes/100 WBC (Bld) 8.5 % Normal 0-10 [facility] Comment on above: Performed By: #### L 100.0100, L503.6620, L500.2500 #### [facility] [address] [place], [address] Neutrophils/100 WBC (Bld) 73.5 % High 47-70 [facility] Comment on above: Performed By: #### L 100.0100, L503.6620, L500.2500 #### [facility] [address] [place], [address] Nucleated RBC (Bld) [#/Vol] 0 10*3/uL Normal 0-5 [facility] Comment on above: Performed By: #### L 100.0100, L503.6620, L500.2500 #### [facility] [address] [place], [address] Platelet mean volume (Bld) [Entitic vol] 12.3 fL High 6.2-12.0 [facility] Comment on above: Performed By: #### L 100.0100, L503.6620, L500.2500 #### [facility] [address] [place], [address] Platelets (Bld) [#/Vol] 185 10*3/uL Normal 150-450 [facility] Comment on above: Performed By: #### L 100.0100, L503.6620, L500.2500 #### [facility] [address] [place], [address] RBC (Bld) [#/Vol] 4.52 10*6/uL Low 4.6-6.2 [facility] Comment on above: Performed By: #### L 100.0100, L503.6620, L500.2500 #### [facility] [address] [place], [address] RDW SD 46.4 fl High 35.1-43.9 [facility] Comment on above: Performed By: #### L 100.0100, L503.6620, L500.2500 #### [facility] [address] [place], [address] WBC (Bld) [#/Vol] 8.2 10*3/uL Normal 4.4-11.0 [facility] Comment on above: Performed By: #### L 100.0100, L503.6620, L500.2500 #### [facility] [address] [place], [address] Carbon dioxide measurementOr dered By: Gustabo Pérez on 04-17-2024 CO2 [Moles/Vol] 27.0 mmol/L 21.0-32.0 [facility] Cardiology Visit Reporton Cardiology Visit Report [facility] [address] [place] [address] OFFICE VISIT Date of Service: 04/17/24 MR#: [id number] Acct: [id number] Name: ERIBERTO RICO Rep #: [id number] : 1945 Provider: YRN arvizu Age/Sex: 78/M Location: [facility] Status: Signed HPI [...] air Intake Visit Reasons: 4 W FU Translational Specialist Required: No Accompanied by: Self Is patient [...] mg PO BID PRN 04/17/24 04/17/24 History hydrocodone-acetamino phen 5-325mg 1 tab PO BID PRN 04/17/24 [...] (chronic ob (more content not included)... Normal [facility] Chloride measurementOrdered By: Gustabo Pérez on 04-17-2024 Chloride [Moles/Vol] 107 mmol/L 98-107 [facility] Eosinophil percentageOrdered By: Gustabo Pérez on 04-17-2024 Eosinophils/100 WBC (Bld) 1.2 % 0-5 [facility] Erythrocyte distribution wid th ratioOrdered By: Gustabo Pérez on 04-17-2024 Erythrocyte distribution width (RBC) [Ratio] 13.9 % 11.6-14.6 [facility] Erythrocyte distribution wid th standard deviationOrdered By: Gustabo Pérez on 04-17-2024 Erythrocyte distribution width (RBC) [Entitic vol] 46.4 fL High 35.1-43.9 [facility] Estimated glomerular filtrat ion rate (GFR) AmericanOrdered By: Gustabo Pérez on 04-17-2024 Estimated GFR (MDRD) Amer 47 mL/min Low >60 [facility] Comment on above: GFR Calc Glomerular filtration rate ( GFR) estimationOrdered By: Gustabo Pérez on 04-17-2024 Estimated GFR (MDRD) Non-Af Amer 39 mL/min Low >60 [facility] Comment on above: Non- GFR Calc Glucose measurementOrdered B y: Gustabo Pérez on 04-17-2024 Glucose [Mass/Vol] 228 mg/dL High 74-106 [facility] Comment on above: Glucose result great er than or equal to 200 mg/dLsuggests DIABETES MELLITUS per A.D.A. criteria. Hematocrit Auto (Bld) [Volum e fraction]Ordered By: Gustabo Pérez on 04-17-2024 Hematocrit (Bld) [Volume fraction] 41.0 % 40-54 [facility] Hemoglobin measurementOrdere d By: Gustabo Pérez on 04-17-2024 Hemoglobin (Bld) [Mass/Vol] 13.2 g/dL 13.0-16.5 [facility] Immature granulocytes/100 WB C Auto (Bld)Ordered By: Gustabo Pérez on 04-17-2024 Immature granulocytes/100 WBC (Bld) 0.600 % 0.0-0.9 [facility] Comment on above: IG% - Immature Granu locytes (promyelocytes, myelocytes and metamyelocytes) > 1% indicates that a LEFT SHIFT is Present. Lymphocytes Auto (Unsp spec) [#/Vol]Ordered By: Gustabo Pérez on 04-17-2024 Lymphocytes (Bld) [#/Vol] 1.29 10*3/uL 0.83-4.51 [facility] Lymphocytes/100 WBC Auto (Un sp spec)Ordered By: Gustabo Pérez on 04-17-2024 Lymphocytes/100 WBC (Bld) 15.7 % Low 19-41 [facility] MCV (mean corpuscular volume ) determinationOrdered By: Gustabo Pérez on 04-17-2024 MCV (RBC) [Entitic vol] 90.7 fL 80-94 [facility] Mean corpuscular hemoglobin (MCH) determinationOrdered By: Gustabo Pérez on 04-17-2024 MCH (RBC) [Entitic mass] 29.2 pg 27.0-32.0 [facility] Mean corpuscular hemoglobin concentration (MCHC) determinationOrdered By: Gustabo Pérez on 04-17-2024 MCHC (RBC) [Mass/Vol] 32.2 g/dL 32-36 [facility] Mean platelet volume determi nationOrdered By: Gustabo Pérez on 04-17-2024 Platelet mean volume (Bld) [Entitic vol] 12.3 fL High 6.2-12.0 [facility] Monocyte percentageOrdered B y: Gustabo Pérez on 04-17-2024 Monocytes/100 WBC (Bld) 8.5 % 0-10 [facility] Neutrophil percentageOrdered By: Gustabo Pérez on 04-17-2024 Neutrophils/100 WBC (Bld) 73.5 % High 47-70 [facility] Nucleated red blood cell per centageOrdered By: Gustabo Pérez on 04-17-2024 Nucleated RBC/100 WBC (Bld) [Ratio] 0 % 0-5 [facility] Platelet countOrdered By: Lydia Pérez on 04-17-2024 Platelets (Bld) [#/Vol] 185 10*3/uL 150-450 [facility] Potassium measurementOrdered By: Gustabo Pérez on 04-17-2024 Potassium [Moles/Vol] 4.8 mmol/L 3.5-5.1 [facility] RBC Auto (Bld) [#/Vol]Ordere d By: Gustabo Pérez on 04-17-2024 RBC (Bld) [#/Vol] 4.52 10*6/uL Low 4.6-6.2 [facility] Serum anion gap measurementO rdered By: Gustabo Pérez on 04-17-2024 Anion gap [Moles/Vol] 4 mmol/L Low 5-15 [facility] Serum or plasma calcium francine urement (mass/volume)Ordered By: Gustabo Pérez on 04-17-2024 Calcium [Mass/Vol] 9.0 mg/dL 8.5-10.1 [facility] Serum or plasma creatinine m easurement (mass/volume)Ordered By: Gustabo Pérez on 04-17-2024 Creatinine [Mass/Vol] 1.79 mg/dL High 0.70-1.30 [facility] Comment on above: The validity of the calculated GFR & GFRAA in patients over 70 years has not been determined. Clinical correlation is essential. Serum or plasma urea nitroge n measurement (mass/volume)Ordered By: Gustabo Pérez on 04-17-2024 Urea nitrogen [Mass/Vol] 20 mg/dL High 7-18 [facility] Sodium levelOrdered By: Gustabo Pérez on 04-17-2024 Sodium [Moles/Vol] 138 mmol/L 136-145 [facility] White blood cell (WBC) count Ordered By: Gustabo Pérez on 04-17-2024 WBC (Bld) [#/Vol] 8.2 10*3/uL 4.4-11.0 [facility] Office Visit Reporton 2023 Office Visit Report [facility] [address] [place] [address] OFFICE VISIT Date of Service: 03/27/24 MR#: [id number] Acct: [id number] Patient: ERIBERTO RICO Rep #: [id number] : 1945 Provider: Dr. Jose Hay MD Age/Sex: 78/M Location: [facility] Status: Signed Intake Vital Signs 03/20/24 08:28 [...] past year?: No 06/01/24 1158 Date Jose Jean Baptiste Signature: Date (if applicable) CC: Dr. Marycarmen Rodriguez, DO Normal [facility] Albumin to globulin ratioOrd ered By: Jose Hay on 03-23-2024 Albumin/Globulin [Mass ratio] 1.1 {ratio} 0.9-2.4 [facility] Bilirubin, totalOrdered By: Joes Hay on 03-23-2024 Bilirubin [Mass/Vol] 2.00 mg/dL High 0.20-1.00 [facility] Comment on above: For patients on eltr ombopag therapy, use of Dimension [place] TBIL is not recommended. Blood urea nitrogen (BUN)/cr eatinine ratioOrdered By: Jose Hay on 03-23-2024 Urea nitrogen/Creatinine [Mass ratio] 18.0 mg/mg 10-20 [facility] Carbon dioxide measurementOr dered By: Jose Hay on 03-23-2024 CO2 [Moles/Vol] 28.0 mmol/L 21.0-32.0 [facility] Chloride measurementOrdered By: Jose Hay on 03-23-2024 Chloride [Moles/Vol] 104 mmol/L 98-107 [facility] Comprehensive Metabolic Prof ilon 03-23-2024 Albumin [Mass/Vol] 3.7 g/dL Normal 3.2-5.0 [facility] Comment on above: Order Comment: DR REMY ORDERED BMP AND MAGNESIUM.DR HAY ORDERED LIPID CMP TSH. RANGLE Performed By: #### L 100.0100, L503.6620, L500.2500 #### [facility] [address] [place], [address] Albumin/Globulin [Mass ratio] 1.1 {ratio} Normal 0.9-2.4 [facility] Comment on above: Order Comment: DR REMY ORDERED BMP AND MAGNESIUM.DR HAY ORDERED LIPID CMP TSH. RANGLE Performed By: #### L 100.0100, L503.6620, L500.2500 #### [facility] [address] [place], [address] ALK P 92 U/L Normal 45-117 [facility] Comment on above: Order Comment: DR REMY ORDERED BMP AND MAGNESIUM.DR HAY ORDERED LIPID CMP TSH. RANGLE Performed By: #### L 100.0100, L503.6620, L500.2500 #### [facility] [address] [place], [address] ALT [Catalytic activity/Vol] 52 U/L Normal 16-61 [facility] Comment on above: Order Comment: DR REMY ORDERED BMP AND MAGNESIUM.DR HAY ORDERED LIPID CMP TSH. RANGLE Performed By: #### L 100.0100, L503.6620, L500.2500 #### [facility] [address] [place], [address] AST [Catalytic activity/Vol] 28 U/L Normal 15-37 [facility] Comment on above: Order Comment: DR REMY ORDERED BMP AND MAGNESIUM.DR HAY ORDERED LIPID CMP TSH. RANGLE Performed By: #### L 100.0100, L503.6620, L500.2500 #### [facility] [address] [place], [address] Bilirubin [Mass/Vol] 2.00 mg/dL High 0.20-1.00 [facility] Comment on above: Order Comment: DR REMY ORDERED BMP AND MAGNESIUM.DR HAY ORDERED LIPID CMP TSH. RANGLE Result Comment: For patients on eltrombopag therapy, use of Dimension [place] TBIL is not recommended. Performed By: #### L 100.0100, L503.6620, L500.2500 #### [facility] [address] [place], [address] BUN/CRE 18.0 RATIO Normal 10-20 [facility] Comment on above: Order Comment: DR REMY ORDERED BMP AND MAGNESIUM.DR HAY ORDERED LIPID CMP TSH. RANGLE Performed By: #### L 100.0100, L503.6620, L500.2500 #### [facility] [address] [place], [address] CA,Total 8.8 mg/dL Normal 8.5-10.1 [facility] Comment on above: Order Comment: DR REMY ORDERED BMP AND MAGNESIUM.DR HAY ORDERED LIPID CMP TSH. RANGLE Performed By: #### L 100.0100, L503.6620, L500.2500 #### [facility] [address] [place], [address] Chloride [Moles/Vol] 104 mmol/L Normal 98-107 [facility] Comment on above: Order Comment: DR REMY ORDERED BMP AND MAGNESIUM.DR HAY ORDERED LIPID CMP TSH. RANGLE Performed By: #### L 100.0100, L503.6620, L500.2500 #### [facility] [address] [place], [address] CO2 [Moles/Vol] 28.0 mmol/L Normal 21.0-32.0 [facility] Comment on above: Order Comment: DR REMY ORDERED BMP AND MAGNESIUM.DR HAY ORDERED LIPID CMP TSH. RANGLE Performed By: #### L 100.0100, L503.6620, L500.2500 #### [facility] [address] [place], [address] Creatinine [Mass/Vol] 1.67 mg/dL High 0.70-1.30 [facility] Comment on above: Order Comment: DR REMY ORDERED BMP AND MAGNESIUM.DR HAY ORDERED LIPID CMP TSH. RANGLE Result Comment: The validity of the calculated GFR GFRAA in patients over 70 years has not been determined. Clinical correlation is essential. Performed By: #### L 100.0100, L503.6620, L500.2500 #### [facility] [address] [place], [address] EST GFR - AA 51 mL/min Low >60 [facility] Comment on above: Order Comment: DR REMY ORDERED BMP AND MAGNESIUM.DR HAY ORDERED LIPID CMP TSH. RANGLE Result Comment: Afri can Mexican GFR Calc Performed By: #### L 100.0100, L503.6620, L500.2500 #### [facility] [address] [place], [address] GAP 6 Normal 5-15 [facility] Comment on above: Order Comment: DR REMY ORDERED BMP AND MAGNESIUM.DR HAY ORDERED LIPID CMP TSH. RANGLE Performed By: #### L 100.0100, L503.6620, L500.2500 #### [facility] [address] [place], [address] GFR/1.73 sq M.predicted among non-blacks MDRD (S/P/Bld) [Vol rate/Area] 42 mL/min/{1.73_m2} Low >60 [facility] Comment on above: Order Comment: DR REMY ORDERED BMP AND MAGNESIUM.DR HAY ORDERED LIPID CMP TSH. RANGLE Result Comment: Non- GFR Calc Performed By: #### L 100.0100, L503.6620, L500.2500 #### [facility] [address] [place], [address] Globulin (S) [Mass/Vol] 3.3 g/dL Normal 2.2-4.2 [facility] Comment on above: Order Comment: DR REMY ORDERED BMP AND MAGNESIUM.DR HAY ORDERED LIPID CMP TSH. RANGLE Performed By: #### L 100.0100, L503.6620, L500.2500 #### [facility] [address] [place], [address] Glucose [Mass/Vol] 146 mg/dL High 74-106 [facility] Comment on above: Order Comment: DR REMY ORDERED BMP AND MAGNESIUM.DR HAY ORDERED LIPID CMP TSH. RANGLE Result Comment: Fast ing Glucose result greater than or equal to 126 mg/dL suggests DIABETES MELLITUS per A.D.A. criteria. Performed By: #### L 100.0100, L503.6620, L500.2500 #### [facility] [address] [place], [address] Potassium [Moles/Vol] 4.4 mmol/L Normal 3.5-5.1 [facility] Comment on above: Order Comment: DR REMY ORDERED BMP AND MAGNESIUM.DR HAY ORDERED LIPID CMP TSH. RANGLE Performed By: #### L 100.0100, L503.6620, L500.2500 #### [facility] [address] [place], [address] Sodium [Moles/Vol] 138 mmol/L Normal 136-145 [facility] Comment on above: Order Comment: DR REMY ORDERED BMP AND MAGNESIUM.DR HAY ORDERED LIPID CMP TSH. RANGLE Performed By: #### L 100.0100, L503.6620, L500.2500 #### [facility] [address] [place], [address] T PROT 7.0 g/dL Normal 6.4-8.2 [facility] Comment on above: Order Comment: DR REMY ORDERED BMP AND MAGNESIUM.DR HAY ORDERED LIPID CMP TSH. RANGLE Performed By: #### L 100.0100, L503.6620, L500.2500 #### [facility] [address] [place], [address] Urea nitrogen [Mass/Vol] 30 mg/dL High 7-18 [facility] Comment on above: Order Comment: DR REMY ORDERED BMP AND MAGNESIUM.DR HAY ORDERED LIPID CMP TSH. RANGLE Performed By: #### L 100.0100, L503.6620, L500.2500 #### [facility] [address] [place], [address] Estimated glomerular filtrat ion rate (GFR) AmericanOrdered By: Jose Hay on 03-23-2024 Estimated GFR (MDRD) Amer 51 mL/min Low >60 [facility] Comment on above: GFR Calc Glomerular filtration rate ( GFR) estimationOrdered By: Jose Hay on 03-23-2024 Estimated GFR (MDRD) Non-Af Amer 42 mL/min Low >60 [facility] Comment on above: Non- GFR Calc Glucose measurementOrdered B y: Jose Hay on 03-23-2024 Glucose [Mass/Vol] 146 mg/dL High 74-106 [facility] Comment on above: Fasting Glucose resu lt greater than or equal to 126 mg/dL suggests DIABETES MELLITUS per A.D.A. criteria. High density lipoprotein (HD L) measurementOrdered By: Jose Hay on 03-23-2024 Cholesterol in HDL [Mass/Vol] 52 mg/dL >40 [facility] Comment on above: The drugs N-Acetylcy steine and Metamizole may falsely depress this assay. Reference Range HDL <40 mg/dL Low HDL Cholesterol HDL >or= 60 mg/dL High HDL Cholesterol Laboratory - Chemistry and C hemistry - challengeOrdered By: Jose Hay on 03-23-2024 AST [Catalytic activity/Vol] 28 U/L 15-37 [facility] Lipid Profileon 03-23-2024 Cholesterol [Mass/Vol] 158 mg/dL Normal 200 [facility] Comment on above: Order Comment: DR REMY ORDERED BMP AND MAGNESIUM.DR HAY ORDERED LIPID CMP TSH. RANGLE Result Comment: <200 mg/dL Desirable 200-240 mg/dL Borderline >240 mg/dL High Risk Performed By: #### L 100.0100, L503.6620, L500.2500 #### [facility] [address] [place], [address] Cholesterol in HDL [Mass/Vol] 52 mg/dL Normal [facility] Comment on above: Order Comment: DR REMY ORDERED BMP AND MAGNESIUM.DR HAY ORDERED LIPID CMP TSH. RANGLE Result Comment: The drugs N-Acetylcysteine and Metamizole may falsely depress this assay. Reference Range HDL <40 mg/dL Low HDL Cholesterol HDL >or= 60 mg/dL High HDL Cholesterol Performed By: #### L 100.0100, L503.6620, L500.2500 #### [facility] [address] [place], [address] Cholesterol in LDL [Mass/Vol] 61 mg/dL Normal 0-130 [facility] Comment on above: Order Comment: DR REMY ORDERED BMP AND MAGNESIUM.DR HAY ORDERED LIPID CMP TSH. RANGLE Performed By: #### L 100.0100, L503.6620, L500.2500 #### [facility] [address] [place], [address] Cholesterol in VLDL [Mass/Vol] 45 mg/dL High 5-40 [facility] Comment on above: Order Comment: DR REMY ORDERED BMP AND MAGNESIUM.DR HAY ORDERED LIPID CMP TSH. RANGLE Performed By: #### L 100.0100, L503.6620, L500.2500 #### [facility] [address] [place], [address] Triglyceride [Mass/Vol] 225 mg/dL High [facility] Comment on above: Order Comment: DR REMY ORDERED BMP AND MAGNESIUM.DR HAY ORDERED LIPID CMP TSH. RANGLE Result Comment: The drugs N-Acetylcysteine and Metamizole may falsely depress this assay. Serum Triglycerides Reference Interval Normal <150 mg/dL Borderline high 150 - 199 mg/dL High 200 - 499 mg/dL Very High > or = 500 mg/dL Performed By: #### L 100.0100, L503.6620, L500.2500 #### [facility] [address] [place], [address] Low density lipoprotein (LDL ) cholesterol measurementOrdered By: Jose Hay on 03-23-2024 Cholesterol in LDL [Mass/Vol] 61 mg/dL 0-130 [facility] Magnesiumon 03-23-2024 Magnesium [Mass/Vol] 2.1 mg/dL Normal 1.6-2.6 [facility] Comment on above: Order Comment: DR REMY ORDERED BMP AND MAGNESIUM.DR HAY ORDERED LIPID CMP TSH. RANGLE Performed By: #### L 100.0100, L503.6620, L500.2500 #### [facility] [address] [place], [address] Magnesium measurementOrdered By: Jose Hay on 03-23-2024 Magnesium [Mass/Vol] 2.1 mg/dL 1.6-2.6 [facility] Potassium measurementOrdered By: Jose Hay on 03-23-2024 Potassium [Moles/Vol] 4.4 mmol/L 3.5-5.1 [facility] Serum anion gap measurementO rdered By: Jose Hay on 03-23-2024 Anion gap [Moles/Vol] 6 mmol/L 5-15 [facility] Serum globulin measurementOr dered By: Jose Hay on 03-23-2024 Globulin (S) [Mass/Vol] 3.3 g/dL 2.2-4.2 [facility] Serum or plasma alanine guerrero otransferase (ALT) measurementOrdered By: Jose Hay on 03-23-2024 ALT [Catalytic activity/Vol] 52 U/L 16-61 [facility] Serum or plasma albumin francine urement (mass/volume)Ordered By: Jose Hay on 03-23-2024 Albumin [Mass/Vol] 3.7 g/dL 3.2-5.0 [facility] Serum or plasma alkaline bell sphatase measurementOrdered By: Jose Hay on 03-23-2024 ALP [Catalytic activity/Vol] 92 U/L 45-117 [facility] Serum or plasma calcium francine urement (mass/volume)Ordered By: Jose Hay on 03-23-2024 Calcium [Mass/Vol] 8.8 mg/dL 8.5-10.1 [facility] Serum or plasma cholesterol measurement (mass/volume)Ordered By: Jose Hay on 03-23-2024 Cholesterol [Mass/Vol] 158 mg/dL <200 [facility] Comment on above: <200 mg/dL Desirable 200-240 mg/dL Borderline >240 mg/dL High Risk Serum or plasma creatinine m easurement (mass/volume)Ordered By: Jose Hay on 03-23-2024 Creatinine [Mass/Vol] 1.67 mg/dL High 0.70-1.30 [facility] Comment on above: The validity of the calculated GFR & GFRAA in patients over 70 years has not been determined. Clinical correlation is essential. Serum or plasma urea nitroge n measurement (mass/volume)Ordered By: Jose Hay on 03-23-2024 Urea nitrogen [Mass/Vol] 30 mg/dL High 7-18 [facility] Sodium levelOrdered By: Ernst Hay on 03-23-2024 Sodium [Moles/Vol] 138 mmol/L 136-145 [facility] TSH QnOrdered By: Jose rodriguez on 03-23-2024 Thyroid Stimulating Hormone (TSH) 5.340 uIU/mL High 0.358-3.740 [facility] Thyroid Stim Hormone (TSH)on 03-23-2024 TSH 5.340 uIU/mL High 0.358-3.740 [facility] Comment on above: Order Comment: DR REMY ORDERED BMP AND MAGNESIUM.DR HAY ORDERED LIPID CMP TSH. RANGLE Performed By: #### L 100.0100, L503.20, L500.2500 #### [facility] [address] [place], [place], [id number] Total proteinOrdered By: Emmanuel Hay on 03-23-2024 Protein [Mass/Vol] 7.0 g/dL 6.4-8.2 [facility] Triglycerides measurementOrd ered By: Jose Hay on 03-23-2024 Triglyceride [Mass/Vol] 225 mg/dL High <199 [facility] Comment on above: The drugs N-Acetylcy steine and Metamizole may falsely depress this assay.Serum Triglycerides Reference Interval Normal <150 mg/dL Borderline high 150 - 199 mg/dL High 200 - 499 mg/dL Very High > or = 500 mg/dL Very low density lipoprotein (VLDL) cholesterol measurementOrdered By: Jose Hay on 03-23-2024 VLDL Cholesterol 45 mg/dL High 5-40 [facility] Cardiology Visit Reporton Cardiology Visit Report [facility] [facility] [place], [place] [address] OFFICE VISIT Date of Service: 03/20/24 MR#: [id number] Acct: [id number] Name: ERIBERTO RICO Rep #: [id number] : 1945 Provider: Dr. 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 Normal [facility] Lipid Profileon 11-18-2023 Cholesterol [Mass/Vol] 177 mg/dL Normal 200 [facility] Comment on above: Result Comment: <200 mg/dL Desirable 200-240 mg/dL Borderline >240 mg/dL High Risk Performed By: #### L 3410.9992, L505.5000 #### [facility] [address] [place], [address] Cholesterol in HDL [Mass/Vol] 60 mg/dL Normal [facility] Comment on above: Result Comment: The drugs N-Acetylcysteine and Metamizole may falsely depress this assay. Reference Range HDL <40 mg/dL Low HDL Cholesterol HDL >or= 60 mg/dL High HDL Cholesterol Performed By: #### L 3410.9992, L505.5000 #### [facility] [address] [place], [address] Cholesterol in LDL [Mass/Vol] 68 mg/dL Normal 0-130 [facility] Comment on above: Performed By: #### L 3410.9992, L505.5000 #### [facility] [address] [place], [address] Cholesterol in VLDL [Mass/Vol] 49 mg/dL High 5-40 [facility] Comment on above: Performed By: #### L 3410.9992, L505.5000 #### [facility] [address] [place], [address] Triglyceride [Mass/Vol] 244 mg/dL High [facility] Comment on above: Result Comment: The drugs N-Acetylcysteine and Metamizole may falsely depress this assay. Serum Triglycerides Reference Interval Normal <150 mg/dL Borderline high 150 - 199 mg/dL High 200 - 499 mg/dL Very High > or = 500 mg/dL Performed By: #### L 3410.9992, L505.5000 #### [facility] [address] [place], [address] Liver Profileon 11-18-2023 Albumin [Mass/Vol] 3.5 g/dL Normal 3.2-5.0 [facility] Comment on above: Performed By: #### L 3410.9992, L505.5000 #### [facility] [address] [place], [address] ALK P 110 U/L Normal 45-117 [facility] Comment on above: Performed By: #### L 3410.9992, L505.5000 #### [facility] [address] [place], [address] ALT [Catalytic activity/Vol] 30 U/L Normal 16-61 [facility] Comment on above: Performed By: #### L 3410.9992, L505.5000 #### [facility] [address] [place], [address] AST [Catalytic activity/Vol] 19 U/L Normal 15-37 [facility] Comment on above: Performed By: #### L 3410.9992, L505.5000 #### [facility] [address] [place], [address] Bilirubin [Mass/Vol] 1.00 mg/dL Normal 0.20-1.00 [facility] Comment on above: Result Comment: For patients on eltrombopag therapy, use of Dimension [place] TBIL is not recommended. Performed By: #### L 3410.9992, L505.5000 #### [facility] [address] [place], [address] Bilirubin.direct [Mass/Vol] 0.23 mg/dL Normal 0.00-0.30 [facility] Comment on above: Performed By: #### L 3410.9992, L505.5000 #### [facility] [address] [place], [address] Globulin (S) [Mass/Vol] 3.5 g/dL Normal 2.2-4.2 [facility] Comment on above: Performed By: #### L 3410.9992, L505.5000 #### [facility] [address] [place], [address] T PROT 7.0 g/dL Normal 6.4-8.2 [facility] Comment on above: Performed By: #### L 3410.9992, L505.5000 #### [facility] [address] [place], [place], [address] Cardiology Visit Reporton Cardiology Visit Report [facility] [address] [place], [place] [address] OFFICE VISIT Date of Service: 10/29/23 MR#: [id number] Acct: [id number] Name: ERIBERTO RICO Rep #: [id number] : 1945 Provider: YRN petit Age/Sex: [...] He did have a second opinion at [facility]. He was seen by Dr. Hay, and [...] 97 Intake Visit Reasons: 6 W FU Translational Specialist Required: No Is patient in pain?: No [...] Yes PFS (more content not included)... Normal [facility] Basophil percentageOrdered B y: Marycarmen ChiuJennifer on 05-07-2023 Chloride [Moles/Vol] 103 mmol/L 98-107 [facility] Glucose [Mass/Vol] 172 mg/dL 74-106 [facility] Comment on above: Fasting Glucose resu lt greater than or equal to 126 mg/dL suggests DIABETES MELLITUS per A.D.A. criteria. Potassium [Moles/Vol] 3.7 mmol/L 3.5-5.1 [facility] Sodium [Moles/Vol] 138 mmol/L 136-145 [facility] Laboratory - Chemistry and C hemistry - challengeOrdered By: Marycarmen Rodriguez on 05-07-2023 CO2 [Moles/Vol] 27.0 mmol/L 21.0-32.0 [facility] Urea nitrogen/Creatinine [Mass ratio] 13.9 mg/mg 10-20 [facility] No Panel InformationOrdered By: Marycarmen Rodriguez on 05-07-2023 Estimated GFR (MDRD) Amer 74 mL/min >60 [facility] Comment on above: GFR Calc Estimated GFR (MDRD) Non-Af Amer 61 mL/min >60 [facility] Comment on above: Non- GFR Calc Serum or plasma calcium francine urement (mass/volume)Ordered By: Marycarmen Rodriguez on 05-07-2023 Calcium [Mass/Vol] 8.6 mg/dL 8.5-10.1 [facility] Serum or plasma creatinine m easurement (mass/volume)Ordered By: Marycarmen Rodriguez on 05-07-2023 Creatinine [Mass/Vol] 1.22 mg/dL 0.70-1.30 [facility] Comment on above: The validity of the calculated GFR & GFRAA in patients over 70 years has not been determined. Clinical correlation is essential. Serum or plasma urea nitroge n measurement (mass/volume)Ordered By: Marycarmen Rodriguez on 05-07-2023 Urea nitrogen [Mass/Vol] 17 mg/dL 7-18 [facility] Thin prep Papanicolaou smear with manual screeningOrdered By: Marycarmen Rodriguez on 05-07-2023 Thin prep Papanicolaou smear with manual screening 8 5-15 [facility] Basophil percentageOrdered B y: Jose Hay on 12-15-2022 Chloride [Moles/Vol] 110 mmol/L 98-107 [facility] Glucose [Mass/Vol] 121 mg/dL 74-106 [facility] Comment on above: Fasting Glucose resu lt from 100 to 125 mg/dL suggests IMPAIRED HOMEOSTASIS per A.D.A. criteria. Potassium [Moles/Vol] 4.0 mmol/L 3.5-5.1 [facility] Sodium [Moles/Vol] 139 mmol/L 136-145 [facility] WBC (Bld) [#/Vol] 7.3 10*3/uL 4.4-11.0 [facility] Blood erythrocytes count (nu mber/volume)Ordered By: Jose Hay on 12-15-2022 RBC (Bld) [#/Vol] 5.18 10*6/uL 4.6-6.2 [facility] Blood hemoglobin measurement (mass/volume)Ordered By: Jose Hay on 12-15-2022 Hemoglobin (Bld) [Mass/Vol] 15.2 g/dL 13.0-16.5 [facility] Blood platelet mean volumeOr dered By: Jose Hay on 12-15-2022 Platelet mean volume (Bld) [Entitic vol] 12.2 fL 6.2-12.0 [facility] Determination of erythrocyte mean corpuscular volume (MCV)Ordered By: Jose Hay on 12-15-2022 MCV (RBC) [Entitic vol] 90.2 fL 80-94 [facility] Hematocrit Auto (Bld) [Volum e fraction]Ordered By: Jose Hay on 12-15-2022 Hematocrit (Bld) [Volume fraction] 46.7 % 40-54 [facility] - Chemistry and C hemistry - challengeOrdered By: Jose Hay on 12-15-2022 CO2 [Moles/Vol] 23.0 mmol/L 21.0-32.0 [facility] Natriuretic peptide B (Bld) [Mass/Vol] 38.1 pg/mL 0-100 [facility] Urea nitrogen/Creatinine [Mass ratio] 13.5 mg/mg 10-20 [facility] - Hematology and Cell countsOrdered By: Jose Hay on 12-15-2022 Erythrocyte distribution width (RBC) [Entitic vol] 47.5 fL 35.1-43.9 [facility] Erythrocyte distribution width (RBC) [Ratio] 14.4 % 11.6-14.6 [facility] MCH (RBC) [Entitic mass] 29.3 pg 27.0-32.0 [facility] MCHC Auto (RBC) [Mass/Vol]Or dered By: Jose Hay on 12-15-2022 MCHC (RBC) [Mass/Vol] 32.5 g/dL 32-36 [facility] No Panel InformationOrdered By: Jose Hay on 12-15-2022 Estimated GFR (MDRD) Amer 83 mL/min >60 [facility] Comment on above: GFR Calc Estimated GFR (MDRD) Non-Af Amer 68 mL/min >60 [facility] Comment on above: Non- GFR Calc Platelets bldOrdered By: Emmanuel Hay on 12-15-2022 Platelets (Bld) [#/Vol] 143 10*3/uL 150-450 [facility] Serum or plasma calcium francine urement (mass/volume)Ordered By: Jose Hay on 12-15-2022 Calcium [Mass/Vol] 8.8 mg/dL 8.5-10.1 [facility] Serum or plasma creatinine m easurement (mass/volume)Ordered By: Jose Hay on 12-15-2022 Creatinine [Mass/Vol] 1.11 mg/dL 0.70-1.30 [facility] Comment on above: The validity of the calculated GFR & GFRAA in patients over 70 years has not been determined. Clinical correlation is essential. Serum or plasma urea nitroge n measurement (mass/volume)Ordered By: Jose Hay on 12-15-2022 Urea nitrogen [Mass/Vol] 15 mg/dL 7-18 [facility] Thin prep Papanicolaou smear with manual screeningOrdered By: Jose Hay on 12-15-2022 Thin prep Papanicolaou smear with manual screening 6 5-15 [facility] Absolute lymphocyte countOrd ered By: Luz Elena Mckeon on 10-13-2022 Lymphocytes Auto (Unsp spec) [#/Vol] 1.21 10*3/uL 0.83-4.51 [facility] Basophil percentageOrdered B y: Luz Elena Mckeon on 10-13-2022 Basophils/100 WBC (Bld) 0.5 % 0-1 [facility] Chloride [Moles/Vol] 106 mmol/L 98-107 [facility] Eosinophils/100 WBC (Bld) 1.4 % 0-5 [facility] Glucose [Mass/Vol] 277 mg/dL 74-106 [facility] Comment on above: Glucose result great er than or equal to 200 mg/dLsuggests DIABETES MELLITUS per A.D.A. criteria. Neutrophils (Bld) [#/Vol] 4.0 10*3/uL 2.0-7.7 [facility] Neutrophils/100 WBC (Bld) 68.5 % 47-70 [facility] Potassium [Moles/Vol] 4.1 mmol/L 3.5-5.1 [facility] Sodium [Moles/Vol] 139 mmol/L 136-145 [facility] WBC (Bld) [#/Vol] 5.8 10*3/uL 4.4-11.0 [facility] Blood erythrocytes count (nu mber/volume)Ordered By: Luz Elena Mckeon on 10-13-2022 RBC (Bld) [#/Vol] 4.66 10*6/uL 4.6-6.2 [facility] Blood hemoglobin measurement (mass/volume)Ordered By: Luz Elena Mckeon on 10-13-2022 Hemoglobin (Bld) [Mass/Vol] 13.6 g/dL 13.0-16.5 [facility] Blood lymphocytes/100 leukoc ytesOrdered By: Luz Elena Mckeon on 10-13-2022 Lymphocytes/100 WBC (Bld) 20.7 % 19-41 [facility] Blood monocytes/100 leukocyt esOrdered By: Luz Elena Mckeon on 10-13-2022 Monocytes/100 WBC (Bld) 8.6 % 0-10 [facility] Blood platelet mean volumeOr dered By: Luz Elena Mckeon on 10-13-2022 Platelet mean volume (Bld) [Entitic vol] 12.6 fL 6.2-12.0 [facility] Determination of erythrocyte mean corpuscular volume (MCV)Ordered By: Luz Elena Mckeon on 10-13-2022 MCV (RBC) [Entitic vol] 89.5 fL 80-94 [facility] Hematocrit Auto (Bld) [Volum e fraction]Ordered By: Luz Elena Mckeon on 10-13-2022 Hematocrit (Bld) [Volume fraction] 41.7 % 40-54 [facility] - Chemistry and C hemistry - challengeOrdered By: Luz Elena Mckeon on 10-13-2022 CO2 [Moles/Vol] 27.0 mmol/L 21.0-32.0 [facility] Free T4 [Mass/Vol] 0.77 ng/dL 0.76-1.46 [facility] Magnesium [Mass/Vol] 2.1 mg/dL 1.6-2.6 [facility] Natriuretic peptide B (Bld) [Mass/Vol] 47.2 pg/mL 0-100 [facility] Urea nitrogen/Creatinine [Mass ratio] 17.2 mg/mg 10-20 [facility] - Hematology and Cell countsOrdered By: Luz Elena Mckeon on 10-13-2022 Erythrocyte distribution width (RBC) [Entitic vol] 46.1 fL 35.1-43.9 [facility] Erythrocyte distribution width (RBC) [Ratio] 14.1 % 11.6-14.6 [facility] Immature granulocytes/100 WBC (Bld) 0.300 % 0.0-0.9 [facility] Comment on above: IG% - Immature Granu locytes (promyelocytes, myelocytes and metamyelocytes) > 1% indicates that a LEFT SHIFT is Present. MCH (RBC) [Entitic mass] 29.2 pg 27.0-32.0 [facility] Nucleated RBC/100 WBC (Bld) [Ratio] 0 % 0-5 [facility] MCHC Auto (RBC) [Mass/Vol]Or dered By: Luz Elena Mckeon on 10-13-2022 MCHC (RBC) [Mass/Vol] 32.6 g/dL 32-36 [facility] No Panel InformationOrdered By: Luz Elena Mckeon on 10-13-2022 Estimated GFR (MDRD) Amer 61 mL/min >60 [facility] Comment on above: GFR Calc Estimated GFR (MDRD) Non-Af Amer 50 mL/min >60 [facility] Comment on above: Non- GFR Calc Free Triiodothyronine (T3) pg/dL 2.7 pg/mL 2.18-3.98 [facility] Thyroid Stimulating Hormone (TSH) 4.12 uIU/mL 0.358-3.74 [facility] Platelets bldOrdered By: Loco Mckeon on 10-13-2022 Platelets (Bld) [#/Vol] 126 10*3/uL 150-450 [facility] Serum or plasma calcium francine urement (mass/volume)Ordered By: Luz Elena Mckeon on 10-13-2022 Calcium [Mass/Vol] 8.5 mg/dL 8.5-10.1 [facility] Serum or plasma creatinine m easurement (mass/volume)Ordered By: Luz Elena Mckeon on 10-13-2022 Creatinine [Mass/Vol] 1.45 mg/dL 0.70-1.30 [facility] Comment on above: The validity of the calculated GFR & GFRAA in patients over 70 years has not been determined. Clinical correlation is essential. Serum or plasma urea nitroge n measurement (mass/volume)Ordered By: Luz Elena Mckeon on 10-13-2022 Urea nitrogen [Mass/Vol] 25 mg/dL 7-18 [facility] Thin prep Papanicolaou smear with manual screeningOrdered By: Luz Elena Mckeon on 10-13-2022 Thin prep Papanicolaou smear with manual screening 6 5-15 [facility] COVID-19 virus antigen assay Ordered By: Shaan Santos on 09-21-2022 SARS-CoV-2 (COVID-19) Ag IA.rapid Ql (Resp) [facility] COVID-19 virus antigen assay Ordered By: Dr. Santos on 09-21-2022 SARS-CoV-2 (COVID-19) Ag IA.rapid Ql (Resp) [facility] Glucose Glucometer (BldC) [M ass/Vol]Ordered By: Dr. Santos on 09-21-2022 Glucose [Mass/Vol] 193 mg/dL 74-106 [facility] Comment on above: MANAGEMENT OF PATIEN T CARE PER NURSING PROTOCOL Absolute lymphocyte countOrd ered By: Dr. Leo on 09-18-2022 Lymphocytes Auto (Unsp spec) [#/Vol] 1.83 10*3/uL 0.83-4.51 [facility] Basophil percentageOrdered B y: Dr. Leo on 09-18-2022 Basophils/100 WBC (Bld) 0.3 % 0-1 [facility] Bilirubin [Mass/Vol] 1.20 mg/dL 0.20-1.00 [facility] Comment on above: For patients on eltr ombopag therapy, use of Dimension [place] TBIL is not recommended. Chloride [Moles/Vol] 108 mmol/L 98-107 [facility] Cholesterol [Mass/Vol] 114 mg/dL <200 [facility] Comment on above: <200 mg/dL Desirable 200-240 mg/dL Borderline >240 mg/dL High Risk Eosinophils/100 WBC (Bld) 2.0 % 0-5 [facility] Glucose [Mass/Vol] 87 mg/dL 74-106 [facility] Neutrophils (Bld) [#/Vol] 4.3 10*3/uL 2.0-7.7 [facility] Neutrophils/100 WBC (Bld) 60.9 % 47-70 [facility] Potassium [Moles/Vol] 3.5 mmol/L 3.5-5.1 [facility] Protein [Mass/Vol] 5.9 g/dL 6.4-8.2 [facility] Sodium [Moles/Vol] 142 mmol/L 136-145 [facility] Triglyceride [Mass/Vol] 174 mg/dL <199 [facility] Comment on above: The drugs N-Acetylcy steine and Metamizole may falsely depress this assay.Serum Triglycerides Reference Interval Normal <150 mg/dL Borderline high 150 - 199 mg/dL High 200 - 499 mg/dL Very High > or = 500 mg/dL WBC (Bld) [#/Vol] 7.0 10*3/uL 4.4-11.0 [facility] Blood erythrocytes count (nu mber/volume)Ordered By: Dr. Leo on 09-18-2022 RBC (Bld) [#/Vol] 4.64 10*6/uL 4.6-6.2 [facility] Blood hemoglobin measurement (mass/volume)Ordered By: Dr. Leo on 09-18-2022 Hemoglobin (Bld) [Mass/Vol] 13.2 g/dL 13.0-16.5 [facility] Blood lymphocytes/100 leukoc ytesOrdered By: Dr. Leo on 09-18-2022 Lymphocytes/100 WBC (Bld) 26.1 % 19-41 [facility] Blood monocytes/100 leukocyt esOrdered By: Dr. Leo on 09-18-2022 Monocytes/100 WBC (Bld) 10.4 % 0-10 [facility] Blood platelet mean volumeOr dered By: Dr. Leo on 09-18-2022 Platelet mean volume (Bld) [Entitic vol] 12.3 fL 6.2-12.0 [facility] Determination of erythrocyte mean corpuscular volume (MCV)Ordered By: Dr. Leo on 09-18-2022 MCV (RBC) [Entitic vol] 90.1 fL 80-94 [facility] Hematocrit Auto (Bld) [Volum e fraction]Ordered By: Dr. Leo on 09-18-2022 Hematocrit (Bld) [Volume fraction] 41.8 % 40-54 [facility] - Chemistry and C hemistry - challengeOrdered By: Dr. Leo on 09-18-2022 ALP [Catalytic activity/Vol] 113 U/L 45-117 [facility] ALT [Catalytic activity/Vol] 31 U/L 16-61 [facility] CO2 [Moles/Vol] 26.0 mmol/L 21.0-32.0 [facility] Globulin (S) [Mass/Vol] 3.0 g/dL 2.2-4.2 [facility] Urea nitrogen/Creatinine [Mass ratio] 13.4 mg/mg 10-20 [facility] - Hematology and Cell countsOrdered By: Dr. Leo on 09-18-2022 Erythrocyte distribution width (RBC) [Entitic vol] 46.9 fL 35.1-43.9 [facility] Erythrocyte distribution width (RBC) [Ratio] 14.4 % 11.6-14.6 [facility] Immature granulocytes/100 WBC (Bld) 0.300 % 0.0-0.9 [facility] Comment on above: IG% - Immature Granu locytes (promyelocytes, myelocytes and metamyelocytes) > 1% indicates that a LEFT SHIFT is Present. MCH (RBC) [Entitic mass] 28.4 pg 27.0-32.0 [facility] Nucleated RBC/100 WBC (Bld) [Ratio] 0 % 0-5 [facility] MCHC Auto (RBC) [Mass/Vol]Or dered By: Dr. Leo on 09-18-2022 MCHC (RBC) [Mass/Vol] 31.6 g/dL 32-36 [facility] No Panel InformationOrdered By: Dr. Leo on 09-18-2022 Estimated Creatinine Clearance Calc 47.13 ml/min [facility] Estimated GFR (MDRD) Amer 71 mL/min >60 [facility] Comment on above: GFR Calc Estimated GFR (MDRD) Non-Af Amer 58 mL/min >60 [facility] Comment on above: Non- GFR Calc Thyroid Stimulating Hormone (TSH) 3.64 uIU/mL 0.358-3.74 [facility] Troponin I High Sensitivity 8 pg/mL 3.0-78.0 [facility] Comment on above: Please Note: [place] t Units and Gender Specific Reference Ranges. For more information see Policy Stat Procedure [place] High Sensitivity Troponin (TNIH) and attachments. Platelets bldOrdered By: Dr. Leo on 09-18-2022 Platelets (Bld) [#/Vol] 131 10*3/uL 150-450 [facility] Serum or plasma albumin francine urement (mass/volume)Ordered By: Dr. Leo on 09-18-2022 Albumin [Mass/Vol] 2.9 g/dL 3.2-5.0 [facility] Serum or plasma albumin/glob ulin mass ratioOrdered By: Dr. Leo on 09-18-2022 Albumin/Globulin [Mass ratio] 1.0 {ratio} 0.9-2.4 [facility] Serum or plasma calcium francine urement (mass/volume)Ordered By: Dr. Leo on 09-18-2022 Calcium [Mass/Vol] 7.6 mg/dL 8.5-10.1 [facility] Serum or plasma cholesterol in HDL measurement (mass/volume)Ordered By: Dr. Leo on 09-18-2022 Cholesterol in HDL [Mass/Vol] 36 mg/dL >40 [facility] Comment on above: The drugs N-Acetylcy steine and Metamizole may falsely depress this assay. Reference Range HDL <40 mg/dL Low HDL Cholesterol HDL >or= 60 mg/dL High HDL Cholesterol Serum or plasma cholesterol in VLDL measurement (mass/volume)Ordered By: Dr. Leo on 09-18-2022 Cholesterol in VLDL [Mass/Vol] 35 mg/dL 5-40 [facility] Serum or plasma creatinine m easurement (mass/volume)Ordered By: Dr. Leo on 09-18-2022 Creatinine [Mass/Vol] 1.27 mg/dL 0.70-1.30 [facility] Comment on above: The validity of the calculated GFR & GFRAA in patients over 70 years has not been determined. Clinical correlation is essential. Serum or plasma low density lipoprotein (LDL) cholesterol measurement (mass/volume)Ordered By: Dr. Leo on 09-18-2022 Cholesterol in LDL [Mass/Vol] 43 mg/dL 0-130 [facility] Serum or plasma urea nitroge n measurement (mass/volume)Ordered By: Dr. Leo on 09-18-2022 Urea nitrogen [Mass/Vol] 17 mg/dL 7-18 [facility] Thin prep Papanicolaou smear with manual screeningOrdered By: Dr. Leo on 09-18-2022 Thin prep Papanicolaou smear with manual screening 21 U/L 15-37 [facility] Thin prep Papanicolaou smear with manual screening 8 5-15 [facility] Whole blood hemoglobin A1c/t otal hemoglobin ratio (mass fraction)Ordered By: Dr. Leo on 09-18-2022 HbA1c (Bld) [Mass fraction] 7.7 % 3.8-5.6 [facility] Comment on above: Normal < 5.7 % Predi abetic 5.7 - 6.4 % Diabetic >or= 6.5 % Please note range changes. INR in Blood by Coagulation assayOrdered By: Dr. Hall on 09-17-2022 INR Coag (Bld) [Relative time] 0.9 {INR} [facility] - Chemistry and C hemistry - challengeOrdered By: Dr. Leo on 09-17-2022 Magnesium [Mass/Vol] 2.3 mg/dL 1.6-2.6 [facility] - CoagulationOrde red By: Dr. Hall on 09-17-2022 aPTT Coag (Bld) [Time] 32.1 s 24.1-36.2 [facility] PT Coag (PPP) [Time] 12.3 s 11.7-14.9 [facility] Basophil percentageOrdered B y: Dr. Hay on 09-01-2022 Bilirubin [Mass/Vol] 0.70 mg/dL 0.20-1.00 [facility] Comment on above: For patients on eltr ombopag therapy, use of Dimension [place] TBIL is not recommended. Chloride [Moles/Vol] 112 mmol/L 98-107 [facility] Glucose [Mass/Vol] 151 mg/dL 74-106 [facility] Comment on above: Fasting Glucose resu lt greater than or equal to 126 mg/dL suggests DIABETES MELLITUS per A.D.A. criteria. Potassium [Moles/Vol] 3.9 mmol/L 3.5-5.1 [facility] Protein [Mass/Vol] 5.7 g/dL 6.4-8.2 [facility] Sodium [Moles/Vol] 142 mmol/L 136-145 [facility] WBC (Bld) [#/Vol] 4.7 10*3/uL 4.4-11.0 [facility] Blood erythrocytes count (nu mber/volume)Ordered By: Dr. Hay on 09-01-2022 RBC (Bld) [#/Vol] 4.60 10*6/uL 4.6-6.2 [facility] Blood hemoglobin measurement (mass/volume)Ordered By: Dr. Hay on 09-01-2022 Hemoglobin (Bld) [Mass/Vol] 13.0 g/dL 13.0-16.5 [facility] Blood platelet mean volumeOr dered By: Dr. Hay on 09-01-2022 Platelet mean volume (Bld) [Entitic vol] 12.8 fL 6.2-12.0 [facility] Determination of erythrocyte mean corpuscular volume (MCV)Ordered By: Dr. Hay on 09-01-2022 MCV (RBC) [Entitic vol] 89.1 fL 80-94 [facility] Hematocrit Auto (Bld) [Volum e fraction]Ordered By: Dr. Hay on 09-01-2022 Hematocrit (Bld) [Volume fraction] 41.0 % 40-54 [facility] - Chemistry and C hemistry - challengeOrdered By: Dr. Hay on 09-01-2022 ALP [Catalytic activity/Vol] 149 U/L 45-117 [facility] ALT [Catalytic activity/Vol] 35 U/L 16-61 [facility] CO2 [Moles/Vol] 27.0 mmol/L 21.0-32.0 [facility] Globulin (S) [Mass/Vol] 2.9 g/dL 2.2-4.2 [facility] Urea nitrogen/Creatinine [Mass ratio] 15.8 mg/mg 10-20 [facility] - Hematology and Cell countsOrdered By: Dr. Hay on 09-01-2022 Erythrocyte distribution width (RBC) [Entitic vol] 44.1 fL 35.1-43.9 [facility] Erythrocyte distribution width (RBC) [Ratio] 13.5 % 11.6-14.6 [facility] MCH (RBC) [Entitic mass] 28.3 pg 27.0-32.0 [facility] MCHC Auto (RBC) [Mass/Vol]Or dered By: Dr. Hay on 09-01-2022 MCHC (RBC) [Mass/Vol] 31.7 g/dL 32-36 [facility] No Panel InformationOrdered By: Dr. Hay on 09-01-2022 Estimated Creatinine Clearance Calc 46.51 ml/min [facility] Estimated GFR (MDRD) Amer 67 mL/min >60 [facility] Comment on above: GFR Calc Estimated GFR (MDRD) Non-Af Amer 55 mL/min >60 [facility] Comment on above: Non- GFR Calc Platelets bldOrdered By: Dr. Hay on 09-01-2022 Platelets (Bld) [#/Vol] 106 10*3/uL 150-450 [facility] Serum or plasma albumin francine urement (mass/volume)Ordered By: Dr. Hay on 09-01-2022 Albumin [Mass/Vol] 2.8 g/dL 3.2-5.0 [facility] Serum or plasma albumin/glob ulin mass ratioOrdered By: Dr. Hay on 09-01-2022 Albumin/Globulin [Mass ratio] 1.0 {ratio} 0.9-2.4 [facility] Serum or plasma calcium francine urement (mass/volume)Ordered By: Dr. Hay on 09-01-2022 Calcium [Mass/Vol] 8.0 mg/dL 8.5-10.1 [facility] Serum or plasma creatinine m easurement (mass/volume)Ordered By: Dr. Hay on 09-01-2022 Creatinine [Mass/Vol] 1.33 mg/dL 0.70-1.30 [facility] Comment on above: The validity of the calculated GFR & GFRAA in patients over 70 years has not been determined. Clinical correlation is essential. Serum or plasma urea nitroge n measurement (mass/volume)Ordered By: Dr. Hay on 09-01-2022 Urea nitrogen [Mass/Vol] 21 mg/dL 7-18 [facility] Thin prep Papanicolaou smear with manual screeningOrdered By: Dr. Hay on 09-01-2022 Thin prep Papanicolaou smear with manual screening 21 U/L 15-37 [facility] Thin prep Papanicolaou smear with manual screening 3 5-15 [facility] No Panel InformationOrdered By: Dr. Hay on 08-31-2022 Activated Clotting Time 275 sec 74-137 [facility] Basophil percentageOrdered B y: Dr. Hay on 08-19-2022 Chloride [Moles/Vol] 108 mmol/L 98-107 [facility] Glucose [Mass/Vol] 158 mg/dL 74-106 [facility] Comment on above: Fasting Glucose resu lt greater than or equal to 126 mg/dL suggests DIABETES MELLITUS per A.D.A. criteria. Potassium [Moles/Vol] 4.3 mmol/L 3.5-5.1 [facility] Sodium [Moles/Vol] 137 mmol/L 136-145 [facility] WBC (Bld) [#/Vol] 8.2 10*3/uL 4.4-11.0 [facility] Blood erythrocytes count (nu mber/volume)Ordered By: Dr. Hay on 08-19-2022 RBC (Bld) [#/Vol] 5.05 10*6/uL 4.6-6.2 [facility] Blood hemoglobin measurement (mass/volume)Ordered By: Dr. Hay on 08-19-2022 Hemoglobin (Bld) [Mass/Vol] 14.3 g/dL 13.0-16.5 [facility] Blood platelet mean volumeOr dered By: Dr. Hay on 08-19-2022 Platelet mean volume (Bld) [Entitic vol] 12.5 fL 6.2-12.0 [facility] Determination of erythrocyte mean corpuscular volume (MCV)Ordered By: Dr. Hay on 08-19-2022 MCV (RBC) [Entitic vol] 88.3 fL 80-94 [facility] Hematocrit Auto (Bld) [Volum e fraction]Ordered By: Dr. Hay on 08-19-2022 Hematocrit (Bld) [Volume fraction] 44.6 % 40-54 [facility] INR in Blood by Coagulation assayOrdered By: Dr. Hay on 08-19-2022 INR Coag (Bld) [Relative time] 1.1 {INR} [facility] - Chemistry and C hemistry - challengeOrdered By: Dr. Hay on 08-19-2022 CO2 [Moles/Vol] 25.0 mmol/L 21.0-32.0 [facility] Urea nitrogen/Creatinine [Mass ratio] 12.0 mg/mg 10-20 [facility] - CoagulationOrde red By: Dr. Hay on 08-19-2022 aPTT Coag (Bld) [Time] 30.9 s 24.1-36.2 [facility] PT Coag (PPP) [Time] 13.4 s 11.7-14.9 [facility] - Hematology and Cell countsOrdered By: Dr. Hay on 08-19-2022 Erythrocyte distribution width (RBC) [Entitic vol] 44.8 fL 35.1-43.9 [facility] Erythrocyte distribution width (RBC) [Ratio] 13.9 % 11.6-14.6 [facility] MCH (RBC) [Entitic mass] 28.3 pg 27.0-32.0 [facility] MCHC Auto (RBC) [Mass/Vol]Or dered By: Dr. Hay on 08-19-2022 MCHC (RBC) [Mass/Vol] 32.1 g/dL 32-36 [facility] No Panel InformationOrdered By: Dr. Hay on 08-19-2022 Estimated GFR (MDRD) Amer 72 mL/min >60 [facility] Comment on above: GFR Calc Estimated GFR (MDRD) Non-Af Amer 60 mL/min >60 [facility] Comment on above: Non- GFR Calc Platelets bldOrdered By: Dr. Hay on 08-19-2022 Platelets (Bld) [#/Vol] 151 10*3/uL 150-450 [facility] Serum or plasma calcium francine urement (mass/volume)Ordered By: Dr. Hay on 08-19-2022 Calcium [Mass/Vol] 9.0 mg/dL 8.5-10.1 [facility] Serum or plasma creatinine m easurement (mass/volume)Ordered By: Dr. Hay on 08-19-2022 Creatinine [Mass/Vol] 1.25 mg/dL 0.70-1.30 [facility] Comment on above: The validity of the calculated GFR & GFRAA in patients over 70 years has not been determined. Clinical correlation is essential. Serum or plasma urea nitroge n measurement (mass/volume)Ordered By: Dr. Hay on 08-19-2022 Urea nitrogen [Mass/Vol] 15 mg/dL 7-18 [facility] Thin prep Papanicolaou smear with manual screeningOrdered By: Dr. Hay on 08-19-2022 Thin prep Papanicolaou smear with manual screening 4 5-15 [facility] Basophil percentageOrdered B y: Dr. Rodriguez on 06-11-2022 Chloride [Moles/Vol] 102 mmol/L 98-107 [facility] Glucose [Mass/Vol] 274 mg/dL 74-106 [facility] Comment on above: Glucose result great er than or equal to 200 mg/dLsuggests DIABETES MELLITUS per A.D.A. criteria. Potassium [Moles/Vol] 4.3 mmol/L 3.5-5.1 [facility] Sodium [Moles/Vol] 136 mmol/L 136-145 [facility] - Chemistry and C hemistry - challengeOrdered By: Dr. Rodriguez on 06-11-2022 CO2 [Moles/Vol] 24.0 mmol/L 21.0-32.0 [facility] Magnesium [Mass/Vol] 2.2 mg/dL 1.6-2.6 [facility] Urea nitrogen/Creatinine [Mass ratio] 15.7 mg/mg 10-20 [facility] No Panel InformationOrdered By: Dr. Rodriguez on 06-11-2022 Estimated GFR (MDRD) Amer 67 mL/min >60 [facility] Comment on above: GFR Calc Estimated GFR (MDRD) Non-Af Amer 55 mL/min >60 [facility] Comment on above: Non- GFR Calc Serum or plasma calcium francine urement (mass/volume)Ordered By: Dr. Rodriguez on 06-11-2022 Calcium [Mass/Vol] 8.7 mg/dL 8.5-10.1 [facility] Serum or plasma creatinine m easurement (mass/volume)Ordered By: Dr. Rodriguez on 06-11-2022 Creatinine [Mass/Vol] 1.34 mg/dL 0.70-1.30 [facility] Comment on above: The validity of the calculated GFR & GFRAA in patients over 70 years has not been determined. Clinical correlation is essential. Serum or plasma urea nitroge n measurement (mass/volume)Ordered By: Dr. Rodriguez on 06-11-2022 Urea nitrogen [Mass/Vol] 21 mg/dL 7-18 [facility] Thin prep Papanicolaou smear with manual screeningOrdered By: Dr. Rodriguez on 06-11-2022 Thin prep Papanicolaou smear with manual screening 10 5-15 [facility] Absolute lymphocyte countOrd ered By: Luz Elena Mckeon on 04-14-2022 Lymphocytes Auto (Unsp spec) [#/Vol] 1.60 10*3/uL 0.83-4.51 [facility] Basophil percentageOrdered B y: Luz Elena Mckeon on 04-14-2022 Basophils/100 WBC (Bld) 0.3 % 0-1 [facility] Chloride [Moles/Vol] 106 mmol/L 98-107 [facility] Eosinophils/100 WBC (Bld) 1.5 % 0-5 [facility] Glucose [Mass/Vol] 211 mg/dL 74-106 [facility] Comment on above: Glucose result great er than or equal to 200 mg/dLsuggests DIABETES MELLITUS per A.D.A. criteria. Neutrophils (Bld) [#/Vol] 3.8 10*3/uL 2.0-7.7 [facility] Neutrophils/100 WBC (Bld) 61.3 % 47-70 [facility] Potassium [Moles/Vol] 4.4 mmol/L 3.5-5.1 [facility] Sodium [Moles/Vol] 136 mmol/L 136-145 [facility] WBC (Bld) [#/Vol] 6.2 10*3/uL 4.4-11.0 [facility] Blood erythrocytes count (nu mber/volume)Ordered By: Luz Elena Mckeon on 04-14-2022 RBC (Bld) [#/Vol] 4.87 10*6/uL 4.6-6.2 [facility] Blood hemoglobin measurement (mass/volume)Ordered By: Luz Elena Mckeon on 04-14-2022 Hemoglobin (Bld) [Mass/Vol] 14.1 g/dL 13.0-16.5 [facility] Blood lymphocytes/100 leukoc ytesOrdered By: Luz Elena Mckeon on 04-14-2022 Lymphocytes/100 WBC (Bld) 25.8 % 19-41 [facility] Blood monocytes/100 leukocyt esOrdered By: Luz Elena Mckeon on 04-14-2022 Monocytes/100 WBC (Bld) 10.8 % 0-10 [facility] Blood platelet mean volumeOr dered By: Luz Elena Mckeon on 04-14-2022 Platelet mean volume (Bld) [Entitic vol] 12.8 fL 6.2-12.0 [facility] Determination of erythrocyte mean corpuscular volume (MCV)Ordered By: Luz Elena Mckeon on 04-14-2022 MCV (RBC) [Entitic vol] 88.1 fL 80-94 [facility] [facility] Hematocrit Auto (Bld) [Volum e fraction]Ordered By: Luz Elena Mckeon on 04-14-2022 Hematocrit (Bld) [Volume fraction] 42.9 % 40-54 [facility] - Chemistry and C hemistry - challengeOrdered By: Luz Elena Mckeon on 04-14-2022 CO2 [Moles/Vol] 25.0 mmol/L 21.0-32.0 [facility] Natriuretic peptide B (Bld) [Mass/Vol] 54.2 pg/mL 0-100 [facility] Urea nitrogen/Creatinine [Mass ratio] 13.3 mg/mg 10-20 [facility] - Hematology and Cell countsOrdered By: Luz Elena Mckeon on 04-14-2022 Erythrocyte distribution width (RBC) [Entitic vol] 44.7 fL 35.1-43.9 [facility] Erythrocyte distribution width (RBC) [Ratio] 13.9 % 11.6-14.6 [facility] Immature granulocytes/100 WBC (Bld) 0.300 % 0.0-0.9 [facility] Comment on above: IG% - Immature Granu locytes (promyelocytes, myelocytes and metamyelocytes) > 1% indicates that a LEFT SHIFT is Present. MCH (RBC) [Entitic mass] 29.0 pg 27.0-32.0 [facility] Nucleated RBC/100 WBC (Bld) [Ratio] 0 % 0-5 [facility] MCHC Auto (RBC) [Mass/Vol]Or dered By: Luz Elena Mckeon on 04-14-2022 MCHC (RBC) [Mass/Vol] 32.9 g/dL 32-36 [facility] No Panel InformationOrdered By: Luz Elena Mckeon on 04-14-2022 Estimated GFR (MDRD) Amer 81 mL/min >60 [facility] Comment on above: GFR Calc Estimated GFR (MDRD) Non-Af Amer 67 mL/min >60 [facility] Comment on above: Non- GFR Calc Platelets bldOrdered By: Loco Mckeon on 04-14-2022 Platelets (Bld) [#/Vol] 150 10*3/uL 150-450 [facility] Serum or plasma calcium francine urement (mass/volume)Ordered By: Luz Elena Mckeon on 04-14-2022 Calcium [Mass/Vol] 8.4 mg/dL 8.5-10.1 [facility] Serum or plasma creatinine m easurement (mass/volume)Ordered By: Luz Elena Mckeon on 04-14-2022 Creatinine [Mass/Vol] 1.13 mg/dL 0.70-1.30 [facility] Comment on above: The validity of the calculated GFR & GFRAA in patients over 70 years has not been determined. Clinical correlation is essential. Serum or plasma urea nitroge n measurement (mass/volume)Ordered By: Luz Elena Mckeon on 04-14-2022 Urea nitrogen [Mass/Vol] 15 mg/dL 7-18 [facility] Thin prep Papanicolaou smear with manual screeningOrdered By: Luz Elena Mckeon on 04-14-2022 Thin prep Papanicolaou smear with manual screening 5 5-15 [facility] - Microbiology an d Antimicrobial susceptibilityon 03-27-2022 SARS-CoV-2 (COVID-19) RNA REAGAN+probe Ql (Unsp spec) Detected [facility] No Panel Informationon 03-27 Influenza Types A,B Rapid (Clinic) Not detected [facility] Absolute lymphocyte counton 11-21-2021 Lymphocytes Auto (Unsp spec) [#/Vol] 1.23 10*3/uL 0.83-4.51 [facility] Work Phone: Basophil percentageon 2021 Basophils/100 WBC (Bld) 0.3 % 0-1 [facility] Work Phone: [phone] Chloride [Moles/Vol] 106 mmol/L 98-107 [facility] Work Phone: [phone] Eosinophils/100 WBC (Bld) 1.2 % 0-5 [facility] Work Phone: [phone] Glucose [Mass/Vol] 166 mg/dL 74-106 [facility] Work Phone: [phone] Comment on above: Fasting Glucose resu lt greater than or equal to 126 mg/dL suggests DIABETES MELLITUS per A.D.A. criteria. Neutrophils (Bld) [#/Vol] 4.7 10*3/uL 2.0-7.7 [facility] Work Phone: [phone] Neutrophils/100 WBC (Bld) 69.8 % 47-70 [facility] Work Phone: [phone] Potassium [Moles/Vol] 4.2 mmol/L 3.5-5.1 [facility] Work Phone: [phone] Sodium [Moles/Vol] 140 mmol/L 136-145 [facility] Work Phone: [phone] WBC (Bld) [#/Vol] 6.7 10*3/uL 4.4-11.0 [facility] Work Phone: Blood erythrocytes count (nu mber/volume)on 11-21-2021 RBC (Bld) [#/Vol] 5.06 10*6/uL 4.6-6.2 [facility] Work Phone: Blood hemoglobin measurement (mass/volume)on 11-21-2021 Hemoglobin (Bld) [Mass/Vol] 14.3 g/dL 13.0-16.5 [facility] Work Phone: Blood lymphocytes/100 leukoc yteson 11-21-2021 Lymphocytes/100 WBC (Bld) 18.4 % 19-41 [facility] Work Phone: Blood monocytes/100 leukocyt eson 11-21-2021 Monocytes/100 WBC (Bld) 9.9 % 0-10 [facility] Work Phone: Blood platelet mean volumeon 11-21-2021 Platelet mean volume (Bld) [Entitic vol] 12.4 fL 6.2-12.0 [facility] Work Phone: Determination of erythrocyte mean corpuscular volume (MCV)on 11-21-2021 MCV (RBC) [Entitic vol] 89.1 fL 80-94 [facility] Work Phone: Hematocrit Auto (Bld) [Volum e fraction]on 11-21-2021 Hematocrit (Bld) [Volume fraction] 45.1 % 40-54 [facility] Work Phone: Laboratory - Chemistry and C hemistry - challengeon 11-21-2021 CO2 [Moles/Vol] 27.0 mmol/L 21.0-32.0 [facility] Work Phone: Natriuretic peptide B (Bld) [Mass/Vol] 60.9 pg/mL 0-100 [facility] Work Phone: Urea nitrogen/Creatinine [Mass ratio] 12.9 mg/mg 10-20 [facility] Work Phone: Laboratory - Hematology and Cell countson 11-21-2021 Erythrocyte distribution width (RBC) [Entitic vol] 45.1 fL 35.1-43.9 [facility] Work Phone: Erythrocyte distribution width (RBC) [Ratio] 14.0 % 11.6-14.6 [facility] Work Phone: Immature granulocytes/100 WBC (Bld) 0.400 % 0.0-0.9 [facility] Work Phone: Comment on above: IG% - Immature Granu locytes (promyelocytes, myelocytes and metamyelocytes) > 1% indicates that a LEFT SHIFT is Present. MCH (RBC) [Entitic mass] 28.3 pg 27.0-32.0 [facility] Work Phone: Nucleated RBC/100 WBC (Bld) [Ratio] 0 % 0-5 [facility] Work Phone: MCHC Auto (RBC) [Mass/Vol]on 11-21-2021 MCHC (RBC) [Mass/Vol] 31.7 g/dL 32-36 [facility] Work Phone: No Panel Informationon 11-21 Estimated GFR (MDRD) Amer 63 mL/min >60 [facility] Work Phone: Comment on above: GFR Calc Estimated GFR (MDRD) Non-Af Amer 52 mL/min >60 [facility] Work Phone: Comment on above: Non- GFR Calc Platelets bldon 11-21-2021 Platelets (Bld) [#/Vol] 135 10*3/uL 150-450 [facility] Work Phone: Serum or plasma calcium francine urement (mass/volume)on 11-21-2021 Calcium [Mass/Vol] 8.9 mg/dL 8.5-10.1 [facility] Work Phone: Serum or plasma creatinine m easurement (mass/volume)on 11-21-2021 Creatinine [Mass/Vol] 1.40 mg/dL 0.70-1.30 [facility] Work Phone: Comment on above: The validity of the calculated GFR & GFRAA in patients over 70 years has not been determined. Clinical correlation is essential. Serum or plasma urea nitroge n measurement (mass/volume)on 11-21-2021 Urea nitrogen [Mass/Vol] 18 mg/dL 7-18 [facility] Work Phone: Thin prep Papanicolaou smear with manual screeningon 11-21-2021 Thin prep Papanicolaou smear with manual screening 7 5-15 [facility] Work Phone: Absolute lymphocyte counton 11-16-2021 Lymphocytes Auto (Unsp spec) [#/Vol] 2.06 10*3/uL 0.83-4.51 [facility] Work Phone: Basophil percentageon 2021 Basophils/100 WBC (Bld) 0.3 % 0-1 [facility] Work Phone: Chloride [Moles/Vol] 104 mmol/L 98-107 [facility] Work Phone: Eosinophils/100 WBC (Bld) 1.4 % 0-5 [facility] Work Phone: Glucose [Mass/Vol] 170 mg/dL 74-106 [facility] Work Phone: Comment on above: Fasting Glucose resu lt greater than or equal to 126 mg/dL suggests DIABETES MELLITUS per A.D.A. criteria. Neutrophils (Bld) [#/Vol] 5.0 10*3/uL 2.0-7.7 [facility] Work Phone: Neutrophils/100 WBC (Bld) 62.3 % 47-70 [facility] Work Phone: Potassium [Moles/Vol] 4.4 mmol/L 3.5-5.1 [facility] Work Phone: Comment on above: Slight Hemolysis, Re sult may be falsely increased. Sodium [Moles/Vol] 137 mmol/L 136-145 [facility] Work Phone: WBC (Bld) [#/Vol] 7.9 10*3/uL 4.4-11.0 [facility] Work [facility]: Blood erythrocytes count (nu mber/volume)on 11-16-2021 RBC (Bld) [#/Vol] 5.42 10*6/uL 4.6-6.2 [facility] Work Phone: Blood hemoglobin measurement (mass/volume)on 11-16-2021 Hemoglobin (Bld) [Mass/Vol] 15.6 g/dL 13.0-16.5 [facility] Work Phone: Blood lymphocytes/100 leukoc yteson 11-16-2021 Lymphocytes/100 WBC (Bld) 26.0 % 19-41 [facility] Work Phone: Blood monocytes/100 leukocyt eson 11-16-2021 Monocytes/100 WBC (Bld) 9.6 % 0-10 [facility] Work Phone: Blood platelet mean volumeon 11-16-2021 Platelet mean volume (Bld) [Entitic vol] 12.9 fL 6.2-12.0 [facility] Work Phone: Determination of erythrocyte mean corpuscular volume (MCV)on 11-16-2021 MCV (RBC) [Entitic vol] 89.3 fL 80-94 [facility] Work Phone: Hematocrit Auto (Bld) [Volum e fraction]on 11-16-2021 Hematocrit (Bld) [Volume fraction] 48.4 % 40-54 [facility] Work Phone: Laboratory - Chemistry and C hemistry - challengeon 11-16-2021 CO2 [Moles/Vol] 27.0 mmol/L 21.0-32.0 [facility] Work Phone: Urea nitrogen/Creatinine [Mass ratio] 11.6 mg/mg 10-20 [facility] Work Phone: Laboratory - Hematology and Cell countson 11-16-2021 Erythrocyte distribution width (RBC) [Entitic vol] 44.5 fL 35.1-43.9 [facility] Work Phone: Erythrocyte distribution width (RBC) [Ratio] 13.8 % 11.6-14.6 [facility] Work Phone: Immature granulocytes/100 WBC (Bld) 0.400 % 0.0-0.9 [facility] Work Phone: Comment on above: IG% - Immature Granu locytes (promyelocytes, myelocytes and metamyelocytes) > 1% indicates that a LEFT SHIFT is Present. MCH (RBC) [Entitic mass] 28.8 pg 27.0-32.0 [facility] Work Phone: Nucleated RBC/100 WBC (Bld) [Ratio] 0 % 0-5 [facility] Work Phone: MCHC Auto (RBC) [Mass/Vol]on 11-16-2021 MCHC (RBC) [Mass/Vol] 32.2 g/dL 32-36 [facility] Work Phone: No Panel Informationon 11-16 Troponin I High Sensitivity 7 pg/mL 3.0-78.0 [facility] Work Phone: Comment on above: Please Note: New [place] t Units and Gender Specific Reference Ranges. For more information see Policy Stat Procedure [place] High Sensitivity Troponin (TNIH) and attachments. Estimated Creatinine Clearance Calc 45.54 ml/min [facility] Work Phone: Estimated GFR (MDRD) Amer 64 mL/min >60 [facility] Work Phone: Comment on above: GFR Calc Estimated GFR (MDRD) Non-Af Amer 53 mL/min >60 [facility] Work Phone: Comment on above: Non- GFR Calc Platelets bldon 11-16-2021 Platelets (Bld) [#/Vol] 142 10*3/uL 150-450 [facility] Work Phone: Serum or plasma calcium francine urement (mass/volume)on 11-16-2021 Calcium [Mass/Vol] 9.2 mg/dL 8.5-10.1 [facility] Work Phone: Serum or plasma creatinine m easurement (mass/volume)on 11-16-2021 Creatinine [Mass/Vol] 1.38 mg/dL 0.70-1.30 [facility] Work Phone: Comment on above: The validity of the calculated GFR & GFRAA in patients over 70 years has not been determined. Clinical correlation is essential. Serum or plasma urea nitroge n measurement (mass/volume)on 11-16-2021 Urea nitrogen [Mass/Vol] 16 mg/dL 7-18 [facility] Work Phone: Thin prep Papanicolaou smear with manual screeningon 11-16-2021 Thin prep Papanicolaou smear with manual screening 6 5-15 [facility] Work Phone: Basophil percentageon 2021 Chloride [Moles/Vol] 105 mmol/L 98-107 [facility] Work Phone: Glucose [Mass/Vol] 246 mg/dL 74-106 [facility] Work Phone: Comment on above: Glucose result great er than or equal to 200 mg/dLsuggests DIABETES MELLITUS per A.D.A. criteria. Potassium [Moles/Vol] 4.2 mmol/L 3.5-5.1 [facility] Work Phone: Sodium [Moles/Vol] 137 mmol/L 136-145 [facility] Work Phone: Laboratory - Chemistry and C hemistry - challengeon 10-28-2021 CO2 [Moles/Vol] 24.0 mmol/L 21.0-32.0 [facility] Work Phone: Urea nitrogen/Creatinine [Mass ratio] 15.6 mg/mg 10-20 [facility] Work Phone: No Panel Informationon 10-28 Estimated GFR (MDRD) Amer 74 mL/min >60 [facility] Work Phone: Comment on above: GFR Calc Estimated GFR (MDRD) Non-Af Amer 61 mL/min >60 [facility] Work Phone: Comment on above: Non- GFR Calc Serum or plasma calcium francine urement (mass/volume)on 10-28-2021 Calcium [Mass/Vol] 8.9 mg/dL 8.5-10.1 [facility] Work Phone: Serum or plasma creatinine m easurement (mass/volume)on 10-28-2021 Creatinine [Mass/Vol] 1.22 mg/dL 0.70-1.30 [facility] Work Phone: Comment on above: The validity of the calculated GFR & GFRAA in patients over 70 years has not been determined. Clinical correlation is essential. Serum or plasma urea nitroge n measurement (mass/volume)on 10-28-2021 Urea nitrogen [Mass/Vol] 19 mg/dL 7-18 [facility] Work Phone: Thin prep Papanicolaou smear with manual screeningon 10-28-2021 Thin prep Papanicolaou smear with manual screening 8 5-15 [facility] Work Phone: Whole blood hemoglobin A1c/t otal hemoglobin ratio (mass fraction)on 10-28-2021 HbA1c (Bld) [Mass fraction] 7.7 % 3.8-5.6 [facility] Work Phone: Comment on above: Normal < 5.7 % Predi abetic 5.7 - 6.4 % Diabetic >or= 6.5 % Please note range changes. Absolute lymphocyte counton 09-16-2021 Lymphocytes Auto (Unsp spec) [#/Vol] 1.24 10*3/uL 0.83-4.51 [facility] Work Phone: Basophil percentageon 2021 Basophils/100 WBC (Bld) 0.5 % 0-1 [facility] Work Phone: Chloride [Moles/Vol] 107 mmol/L 98-107 [facility] Work Phone: [phone] Eosinophils/100 WBC (Bld) 1.7 % 0-5 [facility] Work Phone: Glucose [Mass/Vol] 134 mg/dL 74-106 [facility] Work Phone: [phone] Comment on above: Fasting Glucose resu lt greater than or equal to 126 mg/dL suggests DIABETES MELLITUS per A.D.A. criteria. Neutrophils (Bld) [#/Vol] 4.4 10*3/uL 2.0-7.7 [facility] Work Phone: [phone] Neutrophils/100 WBC (Bld) 68.0 % 47-70 [facility] Work Phone: [phone] Potassium [Moles/Vol] 4.3 mmol/L 3.5-5.1 [facility] Work Phone: [phone] Sodium [Moles/Vol] 139 mmol/L 136-145 [facility] Work Phone: WBC (Bld) [#/Vol] 6.4 10*3/uL 4.4-11.0 [facility] Work Phone: Blood erythrocytes count (nu mber/volume)on 09-16-2021 RBC (Bld) [#/Vol] 4.84 10*6/uL 4.6-6.2 [facility] Work Phone: [phone] Blood hemoglobin measurement (mass/volume)on 09-16-2021 Hemoglobin (Bld) [Mass/Vol] 14.1 g/dL 13.0-16.5 [facility] Work Phone: Blood lymphocytes/100 leukoc yteson 09-16-2021 Lymphocytes/100 WBC (Bld) 19.3 % 19-41 [facility] Work Phone: Blood monocytes/100 leukocyt eson 09-16-2021 Monocytes/100 WBC (Bld) 10.0 % 0-10 [facility] Work Phone: Blood platelet mean volumeon 09-16-2021 Platelet mean volume (Bld) [Entitic vol] 12.7 fL 6.2-12.0 [facility] Work Phone: Determination of erythrocyte mean corpuscular volume (MCV)on 09-16-2021 MCV (RBC) [Entitic vol] 90.1 fL 80-94 [facility] Work Phone: Hematocrit Auto (Bld) [Volum e fraction]on 09-16-2021 Hematocrit (Bld) [Volume fraction] 43.6 % 40-54 [facility] Work Phone: Laboratory - Chemistry and C hemistry - challengeon 09-16-2021 CO2 [Moles/Vol] 27.0 mmol/L 21.0-32.0 [facility] Work Phone: Natriuretic peptide B (Bld) [Mass/Vol] 80.9 pg/mL 0-100 [facility] Work Phone: Urea nitrogen/Creatinine [Mass ratio] 13.7 mg/mg 10-20 [facility] Work Phone: Laboratory - Hematology and Cell countson 09-16-2021 Erythrocyte distribution width (RBC) [Entitic vol] 46.2 fL 35.1-43.9 [facility] Work Phone: Erythrocyte distribution width (RBC) [Ratio] 13.9 % 11.6-14.6 [facility] Work Phone: Immature granulocytes/100 WBC (Bld) 0.500 % 0.0-0.9 [facility] Work Phone: Comment on above: IG% - Immature Granu locytes (promyelocytes, myelocytes and metamyelocytes) > 1% indicates that a LEFT SHIFT is Present. MCH (RBC) [Entitic mass] 29.1 pg 27.0-32.0 [facility] Work Phone: Nucleated RBC/100 WBC (Bld) [Ratio] 0 % 0-5 [facility] Work Phone: MCHC Auto (RBC) [Mass/Vol]on 09-16-2021 MCHC (RBC) [Mass/Vol] 32.3 g/dL 32-36 [facility] Work Phone: No Panel Informationon 09-16 Estimated GFR (MDRD) Amer 73 mL/min >60 [facility] Work Phone: Comment on above: GFR Calc Estimated GFR (MDRD) Non-Af Amer 60 mL/min >60 [facility] Work Phone: Comment on above: Non- GFR Calc Platelets bldon 09-16-2021 Platelets (Bld) [#/Vol] 133 10*3/uL 150-450 [facility] Work Phone: Serum or plasma calcium francine urement (mass/volume)on 09-16-2021 Calcium [Mass/Vol] 9.0 mg/dL 8.5-10.1 [facility] Work Phone: Serum or plasma creatinine m easurement (mass/volume)on 09-16-2021 Creatinine [Mass/Vol] 1.24 mg/dL 0.70-1.30 [facility] Work Phone: Comment on above: The validity of the calculated GFR & GFRAA in patients over 70 years has not been determined. Clinical correlation is essential. Serum or plasma urea nitroge n measurement (mass/volume)on 09-16-2021 Urea nitrogen [Mass/Vol] 17 mg/dL 7-18 [facility] Work Phone: Thin prep Papanicolaou smear with manual screeningon 09-16-2021 Thin prep Papanicolaou smear with manual screening 5 5-15 [facility] Work Phone: Absolute lymphocyte counton 06-10-2021 Lymphocytes Auto (Unsp spec) [#/Vol] 1.00 10*3/uL 0.83-4.51 [facility] Work Phone: Basophil percentageon 2021 Basophils/100 WBC (Bld) 0.3 % 0-1 [facility] Work Phone: Chloride [Moles/Vol] 107 mmol/L 98-107 [facility] Work Phone: Eosinophils/100 WBC (Bld) 1.7 % 0-5 [facility] Work Phone: Glucose [Mass/Vol] 150 mg/dL 74-106 [facility] Work Phone: Comment on above: Fasting Glucose resu lt greater than or equal to 126 mg/dL suggests DIABETES MELLITUS per A.D.A. criteria. Neutrophils (Bld) [#/Vol] 4.9 10*3/uL 2.0-7.7 [facility] Work Phone: Neutrophils/100 WBC (Bld) 73.8 % 47-70 [facility] Work Phone: Potassium [Moles/Vol] 5.6 mmol/L 3.5-5.1 [facility] Work Phone: Comment on above: Moderate Hemolysis, Result may be falsely increased. Sodium [Moles/Vol] 139 mmol/L 136-145 [facility] Work Phone: WBC (Bld) [#/Vol] 6.7 10*3/uL 4.4-11.0 [facility] Work Phone: Blood erythrocytes count (nu mber/volume)on 06-10-2021 RBC (Bld) [#/Vol] 5.17 10*6/uL 4.6-6.2 [facility] Work Phone: Blood hemoglobin measurement (mass/volume)on 06-10-2021 Hemoglobin (Bld) [Mass/Vol] 15.5 g/dL 13.0-16.5 [facility] Work Phone: Blood lymphocytes/100 leukoc yteson 06-10-2021 Lymphocytes/100 WBC (Bld) 15.0 % 19-41 [facility] Work Phone: Blood monocytes/100 leukocyt eson 06-10-2021 Monocytes/100 WBC (Bld) 8.7 % 0-10 [facility] Work Phone: Blood platelet mean volumeon 06-10-2021 Platelet mean volume (Bld) [Entitic vol] 12.7 fL 6.2-12.0 [facility] Work Phone: Determination of erythrocyte mean corpuscular volume (MCV)on 06-10-2021 MCV (RBC) [Entitic vol] 89.6 fL 80-94 [facility] Work Phone: Hematocrit Auto (Bld) [Volum e fraction]on 06-10-2021 Hematocrit (Bld) [Volume fraction] 46.3 % 40-54 [facility] Work Phone: Laboratory - Chemistry and C hemistry - challengeon 06-10-2021 CO2 [Moles/Vol] 28.0 mmol/L 21.0-32.0 [facility] Work Phone: Urea nitrogen/Creatinine [Mass ratio] 12.7 mg/mg 10-20 [facility] Work Phone: Laboratory - Hematology and Cell countson 06-10-2021 Erythrocyte distribution width (RBC) [Entitic vol] 45.9 fL 35.1-43.9 [facility] Work Phone: Erythrocyte distribution width (RBC) [Ratio] 14.1 % 11.6-14.6 [facility] Work Phone: Immature granulocytes/100 WBC (Bld) 0.500 % 0.0-0.9 [facility] Work Phone: Comment on above: IG% - Immature Granu locytes (promyelocytes, myelocytes and metamyelocytes) > 1% indicates that a LEFT SHIFT is Present. MCH (RBC) [Entitic mass] 30.0 pg 27.0-32.0 [facility] Work Phone: Nucleated RBC/100 WBC (Bld) [Ratio] 0 % 0-5 [facility] Work Phone: MCHC Auto (RBC) [Mass/Vol]on 06-10-2021 MCHC (RBC) [Mass/Vol] 33.5 g/dL 32-36 [facility] Work Phone: No Panel Informationon 06-10 Troponin I High Sensitivity 10 pg/mL 3.0-78.0 [facility] Work Phone: Comment on above: Please Note: New [place] t Units and Gender Specific Reference Ranges. For more information see Policy Stat Procedure [place] High Sensitivity Troponin (TNIH) and attachments. Estimated Creatinine Clearance Calc 47.63 ml/min [facility] Work Phone: Estimated GFR (MDRD) Amer 67 mL/min >60 [facility] Work Phone: Comment on above: GFR Calc Estimated GFR (MDRD) Non-Af Amer 55 mL/min >60 [facility] Work Phone: Comment on above: Non- GFR Calc Platelets bldon 06-10-2021 Platelets (Bld) [#/Vol] 146 10*3/uL 150-450 [facility] Work Phone: Serum or plasma calcium francine urement (mass/volume)on 06-10-2021 Calcium [Mass/Vol] 8.7 mg/dL 8.5-10.1 [facility] Work Phone: Serum or plasma creatinine m easurement (mass/volume)on 06-10-2021 Creatinine [Mass/Vol] 1.34 mg/dL 0.70-1.30 [facility] Work Phone: Comment on above: The validity of the calculated GFR & GFRAA in patients over 70 years has not been determined. Clinical correlation is essential. Serum or plasma urea nitroge n measurement (mass/volume)on 06-10-2021 Urea nitrogen [Mass/Vol] 17 mg/dL 7-18 [facility] Work Phone: Thin prep Papanicolaou smear with manual screeningon 06-10-2021 Thin prep Papanicolaou smear with manual screening 4 5-15 [facility] Work Phone: Absolute lymphocyte counton 05-19-2021 Lymphocytes Auto (Unsp spec) [#/Vol] 1.72 10*3/uL 0.83-4.51 [facility] Work Phone: Basophil percentageon 2021 Basophils/100 WBC (Bld) 0.4 % 0-1 [facility] Work Phone: Bilirubin [Mass/Vol] 1.20 mg/dL 0.20-1.00 [facility] Work Phone: Comment on above: For patients on eltr ombopag therapy, use of Dimension [place] TBIL is not recommended. Chloride [Moles/Vol] 106 mmol/L 98-107 [facility] Work Phone: Eosinophils/100 WBC (Bld) 1.2 % 0-5 [facility] Work Phone: Glucose [Mass/Vol] 182 mg/dL 74-106 [facility] Work Phone: Comment on above: Fasting Glucose resu lt greater than or equal to 126 mg/dL suggests DIABETES MELLITUS per A.D.A. criteria. Neutrophils (Bld) [#/Vol] 6.6 10*3/uL 2.0-7.7 [facility] Work Phone: Neutrophils/100 WBC (Bld) 70.5 % 47-70 [facility] Work Phone: Potassium [Moles/Vol] 3.8 mmol/L 3.5-5.1 [facility] Work Phone: Protein [Mass/Vol] 7.9 g/dL 6.4-8.2 [facility] Work Phone: Sodium [Moles/Vol] 139 mmol/L 136-145 [facility] Work Phone: WBC (Bld) [#/Vol] 9.4 10*3/uL 4.4-11.0 [facility] Work [facility]: Basophil percentage 0 SEEN /hpf [facility] Work Phone: Bilirubin Test strip Ql (U)o n 05-19-2021 Bilirubin Ql (U) Negative Negative [facility] Work Phone: Blood erythrocytes count (nu mber/volume)on 05-19-2021 RBC (Bld) [#/Vol] 5.30 10*6/uL 4.6-6.2 [facility] Work Phone: Blood hemoglobin measurement (mass/volume)on 05-19-2021 Hemoglobin (Bld) [Mass/Vol] 15.3 g/dL 13.0-16.5 [facility] Work Phone: Blood lymphocytes/100 leukoc yteson 05-19-2021 Lymphocytes/100 WBC (Bld) 18.3 % 19-41 [facility] Work Phone: Blood monocytes/100 leukocyt eson 05-19-2021 Monocytes/100 WBC (Bld) 9.3 % 0-10 [facility] Work Phone: Blood platelet mean volumeon 05-19-2021 Platelet mean volume (Bld) [Entitic vol] 12.5 fL 6.2-12.0 [facility] Work Phone: Determination of erythrocyte mean corpuscular volume (MCV)on 05-19-2021 MCV (RBC) [Entitic vol] 89.8 fL 80-94 [facility] Work Phone: Hematocrit Auto (Bld) [Volum e fraction]on 05-19-2021 Hematocrit (Bld) [Volume fraction] 47.6 % 40-54 [facility] Work Phone: Ketones Test strip Ql (U)on 05-19-2021 Ketones Ql (U) Negative Negative [facility] Work Phone: Laboratory - Chemistry and C hemistry - challengeon 05-19-2021 ALP [Catalytic activity/Vol] 156 U/L 45-117 [facility] Work Phone: [phone] ALT [Catalytic activity/Vol] 44 U/L 16-61 [facility] Work Phone: CO2 [Moles/Vol] 26.0 mmol/L 21.0-32.0 [facility] Work Phone: [phone] Globulin (S) [Mass/Vol] 4.2 g/dL 2.2-4.2 [facility] Work Phone: [phone] Lipase [Catalytic activity/Vol] 199 U/L 73-393 [facility] Work Phone: [phone] Urea nitrogen/Creatinine [Mass ratio] 13.8 mg/mg 10-20 [facility] Work Phone: [phone] Laboratory - Hematology and Cell countson 05-19-2021 Erythrocyte distribution width (RBC) [Entitic vol] 46.7 fL 35.1-43.9 [facility] Work Phone: Erythrocyte distribution width (RBC) [Ratio] 14.3 % 11.6-14.6 [facility] Work Phone: Immature granulocytes/100 WBC (Bld) 0.300 % 0.0-0.9 [facility] Work Phone: Comment on above: IG% - Immature Granu locytes (promyelocytes, myelocytes and metamyelocytes) > 1% indicates that a LEFT SHIFT is Present. MCH (RBC) [Entitic mass] 28.9 pg 27.0-32.0 [facility] Work Phone: Nucleated RBC/100 WBC (Bld) [Ratio] 0 % 0-5 [facility] Work Phone: MCHC Auto (RBC) [Mass/Vol]on 05-19-2021 MCHC (RBC) [Mass/Vol] 32.1 g/dL 32-36 [facility] Work Phone: Mucus LM Ql (Urine sed)on Mucus Ql (Urine sed) 0 SEEN /hpf [facility] Work Phone: Nitrite Test strip Ql (U)on 05-19-2021 Nitrite Ql (U) Negative Negative [facility] Work Phone: No Panel Informationon 05-19 Estimated Creatinine Clearance Calc 46.25 ml/min [facility] Work Phone: Estimated GFR (MDRD) Amer 65 mL/min >60 [facility] Work Phone: Comment on above: GFR Calc Estimated GFR (MDRD) Non-Af Amer 53 mL/min >60 [facility] Work Phone: Comment on above: Non- GFR Calc Platelets bldon 05-19-2021 Platelets (Bld) [#/Vol] 158 10*3/uL 150-450 [facility] Work Phone: Protein Test strip Ql (U)on 05-19-2021 Protein Ql (U) Negative Negative [facility] Work Phone: Serum or plasma albumin francine urement (mass/volume)on 05-19-2021 Albumin [Mass/Vol] 3.7 g/dL 3.2-5.0 [facility] Work Phone: Serum or plasma albumin/glob ulin mass ratioon 05-19-2021 Albumin/Globulin [Mass ratio] 0.9 {ratio} 0.9-2.4 [facility] Work Phone: Serum or plasma calcium francine urement (mass/volume)on 05-19-2021 Calcium [Mass/Vol] 9.2 mg/dL 8.5-10.1 [facility] Work Phone: Serum or plasma creatinine m easurement (mass/volume)on 05-19-2021 Creatinine [Mass/Vol] 1.38 mg/dL 0.70-1.30 [facility] Work Phone: Comment on above: The validity of the calculated GFR & GFRAA in patients over 70 years has not been determined. Clinical correlation is essential. Serum or plasma urea nitroge n measurement (mass/volume)on 05-19-2021 Urea nitrogen [Mass/Vol] 19 mg/dL 7-18 [facility] Work Phone: Squamous epithelial cells de tection in urine sediment by light microscopyon 05-19-2021 Epithelial cells.squamous LM Ql (Urine sed) 0 SEEN /hpf [facility] Work Phone: Thin prep Papanicolaou smear with manual screeningon 05-19-2021 Thin prep Papanicolaou smear with manual screening 25 U/L 15-37 [facility] Work Phone: Thin prep Papanicolaou smear with manual screening 7 5-15 [facility] Work Phone: Urine blood detectionon 05-03 RBC Ql (U) Negative Negative [facility] Work Phone: RBC Ql (U) 0 SEEN /hpf [facility] Work Phone: Urine clarityon 05-19-2021 Clarity (U) Clear Clear [facility] Work Phone: Urine color determinationon 05-19-2021 Color (U) Straw Yellow [facility] Work Phone: Urine glucose detectionon Glucose Ql (U) Normal mg/dl Normal [facility] Work Phone: Urine leukocyte esterase det ection by dipstickon 05-19-2021 Leukocyte esterase Test strip Ql (U) Negative Negative [facility] Work Phone: Urine pHon 05-19-2021 pH (U) 5.0 [pH] [facility] Work Phone: Urine sediment bacteria coun t by microscopy (number/high power field)on 05-19-2021 Bacteria LM.HPF (Urine sed) [#/Area] 0 /[HPF] None Seen [facility] Work Phone: Urine specific gravity measu rementon 05-19-2021 Specific gravity (U) [Rel density] 1.010 [facility] Work Phone: Urobilinogen Auto test strip Ql (U)on 05-19-2021 Urobilinogen Ql (U) Normal mg/dl Normal [facility] Work Phone: CT ANGIOGRAM AORTA CHEST ABD [...] descending thoracic aorta is tortuous within its uco-dl-suakeb course but is not aneurysmal. The abdominal [...] particularly at L4-L5 and L5-S1. IMAGING FACILITY: [facility]. 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 Physician: PROCEDURE(S) PERFORMED: Clinical History: Prior smoker, quit date: Diabetes Mellitus: Yes Hypertension: Yes Dyslipidemia: Yes Prior NM: Yes Other: Stroke Prior PCI: Yes 2016 Pre-OP Diagnosis/Indication: ACC Indications: Worsening Angina ASA Classification: II [...] right femoral artery - 6F. 10 cm [place] Catheters were advanced using standard guide wire technique. Multiple angiographic pictures were taken and appropriate pressures obtained. Hemodynamics: Time AIR REST AO 137/67 (94) SA 10:36:02 LV 130/9, 32 10:37:19 LV 0/21, 0 10:37:28 LVp 147/1, 24 10:37:32 After review of the angiography and assurance of the patient's stability, the catheter was withdrawn from the sheath and CORONARY_ANGIO/FINDIN GS Tubular 30% Proximal lesion in LAD Luminal [...] Equipment: Sheath(s) [employer] 4F MICROPUNCTURE KIT Savored 6F 10CM [place] SHEATH Wire(s) [employer] J WIRE FIXED MERIT .035 X 150CM GUIDEWIRE Catheter(s) [employer] JR4 DIAG CATH 6F [employer] JR4 DIAG CATH 6F [employer] PIGTAIL STRAIGHT DIAG CATH 6F See Nursing Notes for further details Signed By Eladio Ingram MD On 01/10/2021 11:05:05 Eladio Ingram MD _ _ [facility] ECHOCARDIOGRAM 2D COMPLETEOr dered By: Eladio Ingram on 10-15-2020 Aortic valve area 2.82882 [facility] AV mean gradient 6 mmHg [facility] EF 62.7797 % [facility] Patient Info Name: ERIBERTO RICO Age: 75 years : 1945 Gender: Male Ht: 175 cm Wt: 106 kg BSA: 2.31 m2 HR: 50 bpm BP: 134 / 72 mmHg Heart Rhythm: Bradycardia, Sinus Rhythm Technical Quality: Fair, Technically difficult Exam Date: 10/15/2020 12:57 PM Patient Status: Outpatient Furrier Apprentice: Tracy Bonilla, RDCS, RVT Exam Type: ECHOCARDIOGRAM COMPLETE W CONTRAST Study Info Indications - Dyspnea Attending Physician: ELADIO INGRAM Referring Physician: ELADIO INGRAM ; [id number] BMI: 34.56 kg/m2 Summary 1. Left ventricular systolic function is normal, with ejection fraction estimated at 60 +/- 5%. 2. The left ventricular diastolic function is normal. 3. 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 4. There is no aortic valve stenosis. History/Risk Factors Hypertension: Yes Dyslipidemia: Yes Diabetic Therapy: Oral Peripheral Arterial Disease (PAD): Yes Myocardial Infarction (NM): Yes Coronary Artery Disease (CAD) Yes Congestive Heart Failure (CHF): Hx CHF Date of Prior NM: 05/03/2008 Diabetes Mellitus: Yes History/Risk Factors sleep [...] of 1.3 cm/m2. Left Ventricular Outflow Tract ------- Name Value Normal ------- LVOT 2D ------- LVOT Diameter 2.2 cm LVOT Doppler ------- LVOT Peak Velocity 1.3 m/s LVOT Mean Gradient 2 mmHg LVOT VTI 30 cm LVOT VTI/AV VTI Ratio 0.7 LVOT Stroke Volume 113 ml LVOT Stroke Index 48.82 ml/m2 Pulmonic Valve ------- Name Value Normal ------- PV Doppler ------- PV Peak Velocity 1.48 m/s PV Mean Gradient 4 mmHg PV VTI 33 cm Mitral Valve ------- Name Value Normal ------- MV Doppler ------- MV Peak Velocity 1.09 m/s (more content not included)... [facility] Interface, Rad In [facility]ch[facility] - 10/15/2020 4:30 PM EDT Patient Info Name: ERIBERTO RICO Age: 75 years : 1945 Gender: Male Ht: 175 cm Wt: 106 kg BSA: 2.31 m2 HR: 50 bpm BP: 134 / 72 mmHg Heart Rhythm: Bradycardia, Sinus Rhythm Technical Quality: Fair, Technically difficult Exam Date: 10/15/2020 12:57 PM Patient Status: Outpatient Furrier Apprentice: Tracy Bonilla, RDWINNIE, RVT Exam Type: ECHOCARDIOGRAM COMPLETE W CONTRAST Study Info Indications - Dyspnea Attending Physician: ELADIO INGRAM Referring Physician: ELADIO INGRAM ; [id number] BMI: 34.56 kg/m2 Summary 1. Left ventricular systolic function is normal, with ejection fraction estimated at 60 +/- 5%. 2. The left ventricular diastolic function is normal. 3. 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 4. There is no aortic valve stenosis. History/Risk Factors Hypertension: Yes Dyslipidemia: Yes Diabetic Therapy: Oral Peripheral Arterial Disease (PAD): Yes Myocardial Infarction (NM): Yes Coronary Artery Disease (CAD) Yes Congestive Heart Failure (CHF): Hx CHF Date of Prior NM: 05/03/2008 Diabetes Mellitus: Yes History/Risk Factors sleep [...] of 1.3 cm/m2. Left Ventricular Outflow Tract ------- Name Value Normal ------- LVOT 2D ------- LVOT Diameter 2.2 cm LVOT Doppler ------- LVOT Peak Velocity 1.3 m/s LVOT Mean Gradient 2 mmHg LVOT VTI 30 cm LVOT VTI/AV VTI Ratio 0.7 LVOT Stroke Volume 113 ml LVOT Stroke Index 48.82 ml/m2 Pulmonic Valve ------- Name Value Normal ------- PV Doppler ------- PV Peak Velocity 1.48 m/s PV Mean Gradient 4 mmHg PV VTI 33 cm Mitral Valve ------- Name Value Normal ------- MV Doppler ------- MV Peak Velocity 1.09 m/s MV Mean Gradient 2 mmHg MV VTI 46 cm MV Decel Stan[place] 333 cm/s2 MV PHT 38 ms MV Area (PHT) 5.8 cm2 4.0-5.0 MV Area (Cont Eq VTI) 2.5 cm2 MV Area Index (Cont Eq VTI) 1.06 cm2/m2 MV Di (more content not included)... [facility] ECHOCARDIOGRAM COMPLETE W CO NTRASTon 10-15-2020 ECHOCARDIOGRAM COMPLETE W CONTRAST Patient Info Name: ERIBERTO RICO Age: 75 years : 1945 Gender: Male Ht: 175 cm Wt: 106 kg BSA: 2.31 m2 HR: 50 bpm BP: 134 / 72 mmHg Heart Rhythm: Bradycardia, Sinus Rhythm Technical Quality: Fair, Technically difficult Exam Date: 10/15/2020 12:57 PM Patient Status: Outpatient Furrier Apprentice: Tracy Bonilla, DRU, T Exam Type: ECHOCARDIOGRAM COMPLETE W CONTRAST Study Info Indications - Dyspnea Attending Physician: ELADIO INGRAM Referring Physician: ELADIO INGRAM ; [id number] BMI: 34.56 kg/m2 Summary 1. Left ventricular systolic function is normal, with ejection fraction estimated at 60 +/- 5%. 2. The left ventricular diastolic function is normal. 3. 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 4. There is no aortic valve stenosis. History/Risk Factors Hypertension: Yes Dyslipidemia: Yes Diabetic Therapy: Oral Peripheral Arterial Disease (PAD): Yes Myocardial Infarction (NM): Yes Coronary Artery Disease (CAD) Yes Congestive Heart Failure (CHF): Hx CHF Date of Prior NM: 05/03/2008 Diabetes Mellitus: Yes History/Risk Factors sleep [...] of 1.3 cm/m2. Left Ventricular Outflow Tract ------- Name Value Normal ------- LVOT 2D ------- LVOT Diameter 2.2 cm LVOT Doppler ------- LVOT Peak Velocity 1.3 m/s LVOT Mean Gradient 2 mmHg LVOT VTI 30 cm LVOT VTI/AV VTI Ratio 0.7 LVOT Stroke Volume 113 ml LVOT Stroke Index 48.82 ml/m2 Pulmonic Valve ------- Name Value Normal ------- PV Doppler ------- PV Peak Velocity 1.48 m/s PV Mean Gradient 4 mmHg PV VTI 33 cm Mitral Valve ------- Name Value Normal ------- MV Doppler ------- MV Peak Velocity 1.09 m/s MV Mean Gradient 2 mmHg MV VTI 46 cm MV Decel [place] 333 cm/s2 MV PHT 38 ms MV Area (PHT) 5.8 cm2 4.0-5.0 MV Area (Cont Eq VTI) 2.5 cm2 MV Area Index (Cont Eq VTI) 1.06 cm2/m2 MV Diastolic Function ------- MV E Peak Velocity 1 m/s MV A Peak Velocity 1 m/s MV E/A 1.2 MV (more content not included)... Normal [facility] ECG 12-LEADOrdered By: Fernanda Acuña on 10-09-2020 Atrial Rate [facility] P [place] [facility] P-R Interval [facility] Q-T Interval [facility] Q-T Interval (corrected) [facility] QRS Duration [facility] QTC Calculation (Bezet) [facility] R [place] [facility] T [place] [facility] Ventricular Rate [facility] Auto Diffon 09-15-2018 Basophils #/vol (Bld) 0.0 E3/mcL Normal 0.0-0.2 [facility] Comment on above: Order Comment: Order Added by Discern Expert. Performed By: #### 2 [id number] #### [employer] [address] [place] [address] 15463 Basophils/100 WBC (Bld) 0.6 % Normal 0.0-2.0 [facility] Comment on above: Order Comment: Order Added by Discern Expert. Performed By: #### 2 [id number] #### [employer] [address] [place] [address] 93992 Eos Absolute 0.1 E3/mcL Normal 0.0-0.7 [facility] Comment on above: Order Comment: Order Added by Discern Expert. Performed By: #### 2 [id number] #### [employer] [address] [place] [address] 58897 Eosinophils/100 WBC (Bld) 2.2 % Normal 0.0-11.0 [facility] Comment on above: Order Comment: Order Added by Discern Expert. Performed By: #### 2 [id number] #### [employer] [address] [place] [address] 26714 Lymphocytes #/vol (Bld) 1.9 E3/mcL Normal 1.2-3.4 [facility] Comment on above: Order Comment: Order Added by Discern Expert. Performed By: #### 2 [id number] #### [employer] [address] [place] [address] 40750 Lymphocytes/100 WBC (Bld) 31.0 % Normal 20.0-55.0 [facility] Comment on above: Order Comment: Order Added by Discern Expert. Performed By: #### 2 [id number] #### [employer] [address] [place] [address] 95565 [place] Absolute 0.8 E3/mcL High 0.0-0.7 [facility] Comment on above: Order Comment: Order Added by Discern Expert. Performed By: #### 2 [id number] #### [employer] [address] [place] [address] 26719 Monocytes/100 WBC (Bld) 13.2 % High 0.0-10.0 [facility] Comment on above: Order Comment: Order Added by Discern Expert. Performed By: #### 2 [id number] #### [employer] [address] [place] [address] Neutro Absolute 3.3 E3/mcL Normal 1.4-6.5 [facility] Comment on above: Order Comment: Order Added by Discern Expert. Performed By: #### 2 [id number] #### [employer] [address] [place] [address] Neutro Auto 53.0 % Normal 37.0-75.0 [facility] Comment on above: Order Comment: Order Added by Discern Expert. Performed By: #### 2 [id number] #### [employer] [address] [place] [phone] BMPon 09-15-2018 Anion gap molar conc 10 mmol/L Normal 10-20 [facility] Comment on above: Performed By: #### 2 [id number] #### [employer] [address] [place] [address] Calcium mass conc 8.4 mg/dL Low 8.6-10.3 [facility] Comment on above: Performed By: #### 2 [id number] #### [employer] [address] [place] [phone] Chloride molar conc 105 mmol/L Normal 98-107 [facility] Comment on above: Performed By: #### 2 [id number] #### [employer] [address] [place] [phone] CO2 molar conc 26.0 mmol/L Normal 21.0-32.0 [facility] Comment on above: Performed By: #### 2 [id number] #### [employer] [address] [place] [phone] Creatinine mass conc 1.1 mg/dL Normal 0.5-1.3 [facility] Comment on above: Performed By: #### 2 [id number] #### [employer] [address] [place] [address] Glucose mass conc 136 mg/dL High 70-99 [facility] Comment on above: Performed By: #### 2 [id number] #### [employer] [address] [place] [address] Potassium molar conc 4.1 mmol/L Normal 3.5-5.3 [facility] Comment on above: Performed By: #### 2 [id number] #### [employer] [address] [place] [address] Sodium molar conc 137 mmol/L Normal 136-145 [facility] Comment on above: Performed By: #### 2 [id number] #### [employer] [address] [place] [address] Urea nitrogen mass conc 19 mg/dL Normal 6-23 [facility] Comment on above: Performed By: #### 2 [id number] #### [employer] [facility] [place] [phone] Urea nitrogen/Creatinine mass ratio 17.3 ratio Normal 5.4-30.0 [facility] Comment on above: Performed By: #### 2 [id number] #### [employer] [address] [place], [place] [phone] CBC w/ Auto Diffon 9 Erythrocyte distribution width Ratio (RBC) 14.9 % High 11.5-14.5 [facility] Comment on above: Performed By: #### 2 [id number] #### [employer] [address] [place], [place] [phone] Hematocrit Volume Fraction (Bld) 41.5 % Low 42.0-52.0 [facility] Comment on above: Performed By: #### 2 [id number] #### [employer] [address] [place] [address] 12062 Hemoglobin mass conc (Bld) 13.6 g/dL Normal 13.5-18.0 [facility] Comment on above: Performed By: #### 2 [id number] #### [employer] [address] [place] [address] 97114 MCH Entitic mass (RBC) 29.6 pg Normal 27.0-31.0 [facility] Comment on above: Performed By: #### 2 [id number] #### [employer] [address] [place] [address] 91294 MCHC mass conc (RBC) 32.8 g/dL Low 33.0-37.0 [facility] Comment on above: Performed By: #### 2 [id number] #### [employer] [address] [place] [address] 22966 MCV Entitic volume (RBC) 90.4 fL Normal 78.0-100.0 [facility] Comment on above: Performed By: #### 2 [id number] #### [employer] [address] [place], [place] [phone] Platelet mean volume Entitic volume (Bld) 10.8 fL Normal 7.4-11.0 [facility] Comment on above: Performed By: #### 2 [id number] #### [employer] [address] [place] [address] Platelets #/vol (Bld) 137 E3/mcL Normal 130-400 [facility] Comment on above: Performed By: #### 2 [id number] #### [employer] [address] [place] [address] RBC #/vol (Bld) 4.59 E6/mcL Normal 3.90-6.10 [facility] Comment on above: Performed By: #### 2 480994 #### [employer] [address] [place] [address] WBC #/vol (Bld) 6.2 E3/mcL Normal 3.6-11.0 [facility] Comment on above: Performed By: #### 2 773982 #### [employer] [address] [place] [address] Glucose POCon 09-15-2018 Glucose mass conc 163 mg/dL High 70-99 [facility] Comment on above: Performed By: #### 2 595119 #### [employer] [address] [place] [address] Glucose mass conc 99 mg/dL Normal 70-99 [facility] Comment on above: Performed By: #### 2 [id number] #### [employer] [address] [place], [place] [address] Troponin-Ion 09-15-2018 Troponin I.cardiac mass conc 0.01 ng/mL Normal 0.00-0.03 [facility] Comment on above: Performed By: #### 2 [id number] #### [employer] [address] [place], [place] [address] eGFRon 09-15-2018 GFR/1.73 sq M predicted among non-blacks MDRD vol rate/area (S/P/Bld) mL/min/{1.73_m2} Normal [facility] Comment on above: Order Comment: Order added by Discern Expert. Performed By: #### 2 [id number] #### [employer] [address] [place] [address] Auto Diffon 09-14-2018 Basophils #/vol (Bld) 0.0 E3/mcL Normal 0.0-0.2 [facility] Comment on above: Order Comment: Order Added by Discern Expert. Performed By: #### 2 [id number] #### [employer] [address] [place] [address] 69729 Basophils/100 WBC (Bld) 0.6 % Normal 0.0-2.0 [facility] Comment on above: Order Comment: Order Added by Discern Expert. Performed By: #### 2 [id number] #### [employer] [address] [place] [address] 42472 Eos Absolute 0.1 E3/mcL Normal 0.0-0.7 [facility] Comment on above: Order Comment: Order Added by Discern Expert. Performed By: #### 2 761354 #### [employer] [address] [place] [address] 12470 Eosinophils/100 WBC (Bld) 1.7 % Normal 0.0-11.0 [facility] Comment on above: Order Comment: Order Added by Discern Expert. Performed By: #### 2 [id number] #### [employer] [address] [place] [address] 22833 Lymphocytes #/vol (Bld) 1.2 E3/mcL Normal 1.2-3.4 [facility] Comment on above: Order Comment: Order Added by Discern Expert. Performed By: #### 2 [id number] #### [employer] [address] [place] [address] 66065 Lymphocytes/100 WBC (Bld) 16.5 % Low 20.0-55.0 [facility] Comment on above: Order Comment: Order Added by Discern Expert. Performed By: #### 2 687070 #### [employer] [address] [place] [address] [place] Absolute 0.8 E3/mcL High 0.0-0.7 [facility] Comment on above: Order Comment: Order Added by Discern Expert. Performed By: #### 2 577439 #### [employer] [address] [place] [phone] Monocytes/100 WBC (Bld) 11.1 % High 0.0-10.0 [facility] Comment on above: Order Comment: Order Added by Discern Expert. Performed By: #### 2 [id number] #### [employer] [address] [place] [address] Neutro Absolute 5.1 E3/mcL Normal 1.4-6.5 [facility] Comment on above: Order Comment: Order Added by Discern Expert. Performed By: #### 2 078238 #### [employer] [address] [place] [address] Neutro Auto 70.1 % Normal 37.0-75.0 [facility] Comment on above: Order Comment: Order Added by Kiana Expert. Performed By: #### 2 [id number] #### [employer] [address] [place] [address] BMPon 09-14-2018 Anion gap molar conc 13 mmol/L Normal 10-20 [facility] Comment on above: Performed By: #### 2 [id number] #### [employer] [address] [place] [address] Calcium mass conc 9.2 mg/dL Normal 8.6-10.3 [facility] Comment on above: Performed By: #### 2 489859 #### [facility] [employer] [address] [place] [address] Chloride molar conc 105 mmol/L Normal 98-107 [facility] Comment on above: Performed By: #### 2 505057 #### [employer] [address] [place] [address] 45459 CO2 molar conc 24.0 mmol/L Normal 21.0-32.0 [facility] Comment on above: Performed By: #### 2 923948 #### [employer] [address] [place] [address] Creatinine mass conc 1.2 mg/dL Normal 0.5-1.3 [facility] Comment on above: Performed By: #### 2 051739 #### [facility] [employer] [address] [place] [address] 15060 Glucose mass conc 129 mg/dL High 70-99 [facility] Comment on above: Performed By: #### 2 [id number] #### [facility] [employer] [address] [place] [address] 01362 Potassium molar conc 3.9 mmol/L Normal 3.5-5.3 [facility] Comment on above: Performed By: #### 2 467512 #### [employer] [address] [place] [address] 77483 Sodium molar conc 138 mmol/L Normal 136-145 [facility] Comment on above: Performed By: #### 2 [id number] #### [facility] [employer] [address] [place], [place] [phone] Urea nitrogen mass conc 19 mg/dL Normal 6-23 [facility] Comment on above: Performed By: #### 2 [id number] #### [facility] [employer] [address] [place], [place] [address] Urea nitrogen/Creatinine mass ratio 15.8 ratio Normal 5.4-30.0 [facility] Comment on above: Performed By: #### 2 114475 #### [facility] [employer] [address] [place], [place] [address] CBC w/ Auto Diffon 9 Erythrocyte distribution width Ratio (RBC) 15.2 % High 11.5-14.5 [facility] Comment on above: Performed By: #### 2 [id number] #### [employer] [address] [place] [address] 80657 Hematocrit Volume Fraction (Bld) 45.0 % Normal 42.0-52.0 [facility] Comment on above: Performed By: #### 2 505459 #### [employer] [address] [place] [address] 89853 Hemoglobin mass conc (Bld) 15.0 g/dL Normal 13.5-18.0 [facility] Comment on above: Performed By: #### 2 960386 #### [employer] [address] [place] [address] 97830 MCH Entitic mass (RBC) 29.8 pg Normal 27.0-31.0 [facility] Comment on above: Performed By: #### 2 369974 #### [employer] [address] [place] [phone] MCHC mass conc (RBC) 33.4 g/dL Normal 33.0-37.0 [facility] Comment on above: Performed By: #### 2 624365 #### [employer] [address] [place] [phone] MCV Entitic volume (RBC) 89.4 fL Normal 78.0-100.0 [facility] Comment on above: Performed By: #### 2 [id number] #### [employer] [address] [place] [phone] Platelet mean volume Entitic volume (Bld) 10.8 fL Normal 7.4-11.0 [facility] Comment on above: Performed By: #### 2 161114 #### [employer] [address] [place] [phone] Platelets #/vol (Bld) 158 E3/mcL Normal 130-400 [facility] Comment on above: Performed By: #### 2 246851 #### [employer] [address] [place] [phone] RBC #/vol (Bld) 5.04 E6/mcL Normal 3.90-6.10 [facility] [facility] Comment on above: Performed By: #### 2 [id number] #### [employer] [address] [id number] WBC #/vol (Bld) 7.2 E3/mcL Normal 3.6-11.0 [facility] Comment on above: Performed By: #### 2 [id number] #### [employer] [address] [id number] [address] Head or Brain w/o Contras ton 09-14-2018 CT Head or Brain w/o Contrast Exam Date/Time: 09/14/2018 15:21 EDT Reason for Exam: Injury Report STUDY: CT Head or Brain w/o Contrast; 09/14/2018 3:21 pm INDICATION: Injury. COMPARISON: 11/28/2016 ACCESSION NUMBER(S): [id number] ORDERING CLINICIAN: Kirsty Nguyen TECHNIQUE: Volume acquisition [...] Signed by: Radha Olivarez MD Technologist: IZAIAH [facility] CT Spine Cervical w/o Contra ston 09-14-2018 CT Spine Cervical w/o Contrast Exam Date/Time: 09/14/2018 15:22 EDT Reason for Exam: Trauma Report STUDY: CT Spine Cervical w/o Contrast; 09/14/2018 3:22 pm INDICATION: Trauma. COMPARISON: None. ACCESSION NUMBER(S): [id number] ORDERING CLINICIAN: Kirsty Nguyen TECHNIQUE: Axial CT [...] C3-C4. The lower cervical canal is obscured. Prevertebral/Paraspin al Soft Tissues: The prevertebral and paraspinal soft tissues are unremarkable. IMPRESSION: Status post anterior fixation of C4 through C6. The hardware is intact. There is no evidence of acute fracture. FINAL REPORT Dictated: 09/14/2018 3:28 pm Radha Olivarez MD Signed (Electronic Signature): 09/14/2018 3:28 pm Signed by: Radha Olivarez MD Technologist: IZAIAH Normal [facility] Glucose POCon 09-14-2018 Glucose mass conc 132 mg/dL High 70-99 [facility] Comment on above: Performed By: #### 2 [id number] #### [employer] [facility] [id number] [id number] 09-14-2018 Hemoglobin A1c/Hemoglobin.total mass fraction (Bld) 6.9 % High 4.0-6.3 [facility] Comment on above: Performed By: #### 2 [id number] #### [employer] [facility] [id number] Magnesiumon 09-14-2018 Magnesium mass conc 2.0 Int._Unit/L Normal 1.6-2.4 [facility] Comment on above: Performed By: #### 2 [id number] #### [employer] [address] [place] [address] PTon 09-14-2018 INR Coag RelTime (PPP) 1.0 {INR} Normal 0.9-1.1 [facility] Comment on above: Result Comment: INR Recommended Therapeutic ranges: Prophylaxis/treatment of DVT and PE..........2.0-3.0 Prevention of systemic embolism.................2.0-3.0 Mechanical prosthetic values........................2.5-3.5 CRITICAL VALUE.........................................> 4.0 NOTE: New methodology started 05/16/2018 Performed By: #### 2 [id number] #### [employer] [facility] [place] [address] Prothrombin time (PT) Coag time (PPP) 11.8 second(s) Normal 9.7-12.7 [facility] Comment on above: Result Comment: NOTE : New reference range established on 05/16/2018 due to change in methodology. Performed By: #### 2 [id number] #### [employer] [address] [place] [address] PTTon 09-14-2018 aPTT Coag time (Bld) 32 second(s) Normal 28-38 [facility] Comment on above: Result Comment: NOTE :New reference range established 05/16/2018 due to change in methodology. Performed By: #### 2 [id number] #### [employer] [facility] [place] [address] TSHon 09-14-2018 Thyrotropin Qn 5.25 mcIU/mL Normal 0.30-5.60 [facility] Comment on above: Performed By: #### 2 [id number] #### [employer] [address] [place] [address] Troponin-Ion 09-14-2018 Troponin I.cardiac mass conc 0.02 ng/mL Normal 0.00-0.03 [facility] Comment on above: Performed By: #### 2 [id number] #### [employer] [address] [place] [address] UA Completeon 09-14-2018 Color Nom (U) Straw Normal Yellow [facility] Comment on above: Performed By: #### 2 [id number] #### [employer] [facility] [place] [address] Glucose mass conc (U) Negative Normal Negative [facility] Comment on above: Performed By: #### 2 [id number] #### [employer] [facility] [place] [address] Ketones Ql (U) Negative Normal Negative [facility] Comment on above: Performed By: #### 2 [id number] #### [employer] [address] [place] [address] UA Blood Negative Normal Negative [facility] Comment on above: Performed By: #### 2 [id number] #### [employer] [address] [place] [address] UA Clarity Clear Normal Clear [facility] Comment on above: Performed By: #### 2 [id number] #### [employer]MO [employer] [address] [place] [address] UA Hyal Cast 3-5 Abnormal 0-2 [facility] Comment on above: Performed By: #### 2 [id number] #### [employer] [address] [place] [address] UA Leuk Est Negative Normal Negative [facility] Comment on above: Performed By: #### 2 [id number] #### [employer] [address] [id number] UA Mucous Trace Abnormal Trace [facility] Comment on above: Performed By: #### 2 [id number] #### [employer] [address] [id number] UA Nitrite Negative Normal Negative [facility] Comment on above: Performed By: #### 2 [id number] #### [employer] [address] [place], [place] [id number] UA pH 5.0 Normal 4.6-8.0 [facility] Comment on above: Performed By: #### 2 [id number] #### [employer] [address] [place] [address] UA Protein Negative Normal Negative [facility] Comment on above: Performed By: #### 2 [id number] #### [employer] [address] [id number] UA Spec Grav 1.009 Normal 1.003-1.030 [facility] Comment on above: Performed By: #### 2 [id number] #### [employer] [facility] [id number] UA Urobilinogen Negative Normal [facility] Comment on above: Result Comment: Due to a manufacturing issue, low positive urobilinogen results may be fasely positive. Correlate with urine bilirubin and additional clinical/laboratory findings to assess the risk of hemolytic anemia or liver disease. If clinically indicated, repeat testing with an alternate method is available by contacting the laboratory within 24 hours. Performed By: #### 2 [id number] #### [employer] [facility] [id number] Urobilinogen Qn (U) Negative Normal Negative [facility] Comment on above: Performed By: #### 2 [id number] #### [employer] [address] [id number] XR Chest AP Portableon 09-14 XR Chest AP Portable Exam Date/Time: 09/14/2018 15:43 EDT Reason for Exam: Chest pain Report STUDY: XR Chest AP Portable; 09/14/2018 3:43 pm INDICATION: Chest pain. COMPARISON: 12/25/2016 ACCESSION NUMBER(S): [id number] ORDERING CLINICIAN: Kirsty Nguyen FINDINGS: CARDIOMEDIASTINAL SILHOUETTE: [...] pm Signed by: Iva Vargas MD Technologist: [facility] XR Humerus Lefton 09-14-2018 XR Humerus Left Exam Date/Time: 09/14/2018 15:43 EDT Reason for Exam: Pain, Traumatic Report STUDY: XR Humerus Left; XR Shoulder Complete Left;; 09/14/2018 3:43 pm INDICATION: Pain, Traumatic. COMPARISON: None. ACCESSION NUMBER(S): [id number]; [id number] ORDERING CLINICIAN: Kirsty Nguyen FINDINGS: Five views [...] pm Signed by: Iva Vargas MD Technologist: [facility] XR Knee Complete Righton XR Knee Complete Right Exam Date/Time: 09/14/2018 15:43 EDT Reason for Exam: Pain, Traumatic Report STUDY: XR Knee Complete Right;; 09/14/2018 3:43 pm INDICATION: Pain, Traumatic. COMPARISON: None. ACCESSION NUMBER(S): [id number] ORDERING CLINICIAN: Kirsty Nguyen FINDINGS: Four views right knee: There is no fracture, dislocation or joint effusion. There is swelling anterior to the patella and infrapatellar tendon. IMPRESSION: No acute bony abnormality right knee, soft tissue swelling. FINAL REPORT Dictated: 09/14/2018 4:19 pm Iva Vargas MD Signed (Electronic Signature): 09/14/2018 4:19 pm Signed by: Iva Vargas MD Technologist: [facility] XR Shoulder Complete Lefton 09-14-2018 XR Shoulder Complete Left Exam Date/Time: 09/14/2018 15:43 EDT Reason for Exam: Pain, Traumatic Report STUDY: XR Humerus Left; XR Shoulder Complete Left;; 09/14/2018 3:43 pm INDICATION: Pain, Traumatic. COMPARISON: None. ACCESSION NUMBER(S): [id number]; [id number] ORDERING CLINICIAN: Kirsty Nguyen FINDINGS: Five views [...] pm Signed by: Iva Vargas MD Technologist: [facility] eGFRon 09-14-2018 GFR/1.73 sq M predicted among non-blacks MDRD vol rate/area (S/P/Bld) mL/min/{1.73_m2} Normal [facility] Comment on above: Order Comment: Order added by Discern Expert. Performed By: #### 1 [id number] #### [employer] [address] [place] [address] Vital Signs Date Time Vital Sign Value Performing Clinician Facility 10-25-2024 08:10-0400 Body height 175.[address] Marycarmen Rodriguez DO Work Phone: [facility] 10-25-2024 08:10-0400 Body mass index (BMI) [Ratio] 35.9 kg/m2 Dr. Marycarmen Rodriguez DO Work Phone: [facility] 10-25-2024 08:10-0400 Body weight 110.[address] Marycarmen Rodriguez DO Work Phone: [facility] 10-25-2024 08:10-0400 Diastolic blood pressure 85 mm[Hg] Dr. Marycarmen Rodriguez DO Work Phone: [facility] 10-25-2024 08:10-0400 Heart rate 85 /min Dr. Marycarmen Rodriguez DO Work Phone: [facility] 10-25-2024 08:10-0400 Respiratory rate 18 /min Dr. Marycarmen Rodriguez DO Work Phone: [facility] 10-25-2024 08:10-0400 Systolic blood pressure 121 mm[Hg] Dr. Marycarmen Rodriguez DO Work Phone: [facility] 09-20-2024 09:15-0400 Body height 175.[address] Marycarmen Rodriguez DO Work Phone: [facility] 09-20-2024 09:15-0400 Body mass index (BMI) [Ratio] 35.6 kg/m2 Dr. Marycarmen Rodriguez DO Work Phone: [facility] 09-20-2024 09:15-0400 Body temperature 96.8 [degF] Dr. Marycarmen Rodriguez DO Work Phone: [facility] 09-20-2024 09:15-0400 Body weight 109.[address] Marycarmen Rodriguez DO Work Phone: [facility] 09-20-2024 09:15-0400 Diastolic blood pressure 77 mm[Hg] Dr. Marycarmen Rodriguez DO Work Phone: [facility] 09-20-2024 09:15-0400 Heart rate 66 /min Dr. Marycarmen Rodriguez DO Work Phone: [facility] 09-20-2024 09:15-0400 Respiratory rate 18 /min Dr. Marycarmen Rodriguez DO Work Phone: [facility] 09-20-2024 09:15-0400 SaO2% (BldA) [Mass fraction] 97 % Dr. Marycarmen Rodriguez DO Work Phone: [facility] 09-20-2024 09:15-0400 Systolic blood pressure 121 mm[Hg] Dr. Marycarmen Rodriguez DO Work Phone: [facility] 07-18-2024 06:00-0400 Body height 175.[address] Marycarmen Rodriguez DO Work Phone: [facility] 07-18-2024 06:00-0400 Body weight 104.[address] Marycarmen Rodriguez DO Work Phone: [facility] 07-18-2024 06:00-0400 Heart rate 69 /min Dr. Marycarmen Rodriguez DO Work Phone: [facility] 07-18-2024 06:00-0400 SaO2% (BldA) [Mass fraction] 97 % Dr. Marycarmen Rodriguez DO Work Phone: [facility] 07-03-2024 08:35-0500 Body mass index (BMI) [Ratio] 36.6 kg/m2 Dr. Marycarmen Rodriguez DO Work Phone: [facility] 07-03-2024 08:35-0500 Body temperature 97.5 [degF] Dr. Marycarmen Rodriguez DO Work Phone: [facility] 07-03-2024 08:35-0500 Body weight 109.[address] Marycarmen Rodriguez DO Work Phone: [facility] 07-03-2024 08:35-0500 Diastolic blood pressure 77 mm[Hg] Dr. Marycarmen Rodriguez DO Work Phone: [facility] 07-03-2024 08:35-0500 Heart rate 72 /min Dr. Marycarmen Rodriguez DO Work Phone: [facility] 07-03-2024 08:35-0500 Respiratory rate 20 /min Dr. Marycarmen Rodriguez DO Work Phone: [facility] 07-03-2024 08:35-0500 SaO2% (BldA) [Mass fraction] 96 % Dr. Marycarmen Rodriguez DO Work Phone: [facility] 07-03-2024 08:35-0500 Systolic blood pressure 116 mm[Hg] Dr. Marycarmen Rodriguez DO Work Phone: [facility] 04-17-2024 15:55-0500 Body height [address] Marycarmen Rodriguez DO Work Phone: [facility] 04-17-2024 15:55-0500 Body mass index (BMI) [Ratio] 36.9 kg/m2 Dr. Marycarmen Rodriguez DO Work Phone: [facility] 04-17-2024 15:55-0500 Body weight 110.[address] Marycarmen Rodriguez DO Work Phone: [facility] 04-17-2024 15:55-0500 Diastolic blood pressure 53 mm[Hg] Dr. Marycarmen Rodriguez DO Work Phone: [facility] 04-17-2024 15:55-0500 Heart rate 70 /min Dr. Marycarmen Rodriguez DO Work Phone: [facility] 04-17-2024 15:55-0500 Respiratory rate 18 /min Dr. Marycarmen Rodriguez DO Work Phone: [facility] 04-17-2024 15:55-0500 SaO2% (BldA) [Mass fraction] 94 % Dr. Marycarmen Rodriguez DO Work Phone: [facility] 04-17-2024 15:55-0500 Systolic blood pressure 91 mm[Hg] Dr. Marycarmen Rodriguez DO Work Phone: [facility] 03-27-2024 10:17-0500 Diastolic blood pressure 79 mm[Hg] Dr. Marycarmen Rodriguez DO Work Phone: [facility] 03-27-2024 10:17-0500 Heart rate 67 /min Dr. Marycarmen Rodriguez DO Work Phone: [facility] 03-27-2024 10:17-0500 Respiratory rate 18 /min Dr. Marycarmen Rodriguez DO Work Phone: [facility] 03-27-2024 10:17-0500 Systolic blood pressure 134 mm[Hg] Dr. Marycarmen Rodriguez DO Work Phone: [facility] 03-20-2024 08:28-0500 Body mass index (BMI) [Ratio] 37.5 kg/m2 Dr. Marycarmen Rodriguez DO Work Phone: [facility] 03-20-2024 08:28-0500 Body weight 112.[address] Marycarmen Rodriguez DO Work Phone: [facility] 03-20-2024 08:28-0500 Diastolic blood pressure 89 mm[Hg] Dr. Marycarmen Rodriguez DO Work Phone: [facility] 03-20-2024 08:28-0500 Heart rate 61 /min Dr. Marycarmen Rodriguez DO Work Phone: [facility] 11-18-2024 08:28-0500 Respiratory rate 18 /min Dr. Marycarmen Rodriguez DO Work Phone: [facility] 03-20-2024 08:28-0500 Systolic blood pressure 141 mm[Hg] Dr. Marycarmen Rodriguez DO Work Phone: [facility] 12-21-2022 07:51-0400 Body height 172.[address] Marycarmen Rodriguez Work Phone: [facility] 12-21-2022 07:51-0400 Body weight 85.[address] Marycarmen Rodriguez Work Phone: [facility] 12-18-2022 08:27-0400 Body mass index (BMI) [Ratio] 28.7 kg/m2 Dr. Marycarmen Rodriguez Work Phone: [facility] 12-15-2022 13:03-0400 Body mass index (BMI) [Ratio] 28.7 kg/m2 Dr. Marycarmen Rodriguez Work Phone: [facility] 12-15-2022 13:03-0400 Body weight 85.[address] Marycarmen Rodriguez Work Phone: [facility] 12-15-2022 13:03-0400 Diastolic blood pressure 92 mm[Hg] Dr. Marycarmen Rodriguez Work Phone: [facility] 12-15-2022 13:03-0400 Heart rate 72 /min Dr. Marycarmen Rodriguez Work Phone: [facility] 12-15-2022 13:03-0400 Respiratory rate 16 /min Dr. Marycarmen Rodriguez Work Phone: [facility] 12-15-2022 13:03-0400 Systolic blood pressure 156 mm[Hg] Dr. Marycarmen Rodriguez Work Phone: [facility] 10-13-2022 10:59-0400 Body height 172.72 cm Marycarmen SWAIN [facility] 10-13-2022 10:59-0400 Body mass index (BMI) [Ratio] 25.4 kg/m2 Marycarmen Jennifer [facility] 10-13-2022 10:59-0400 Body weight 75.74 kg Marycarmen Jennifer [facility] 10-13-2022 10:59-0400 Diastolic blood pressure 75 mm[Hg] Marycarmen Jennifer [facility] 10-13-2022 10:59-0400 Heart rate 65 /min Marycarmen Jennifer [facility] 10-13-2022 10:59-0400 Respiratory rate 18 /min Marycarmen Jennifer [facility] 10-13-2022 10:59-0400 SaO2% (BldA) [Mass fraction] 94 % Marycarmen Jennifer [facility] 10-13-2022 10:59-0400 Systolic blood pressure 143 mm[Hg] Marycarmen Jennifer [facility] 09-21-2022 15:30-0400 Body mass index (BMI) [Ratio] 34.7 kg/m2 Marycarmen Jennifer [facility] 09-21-2022 15:27-0400 Body temperature 98 [degF] Marycarmen Jennifer [facility] 09-21-2022 15:27-0400 Diastolic blood pressure 84 mm[Hg] Marycarmen Jennifer [facility] 09-21-2022 15:27-0400 Heart rate 79 /min Marycarmen Jennifer [facility] 09-21-2022 15:27-0400 Respiratory rate 17 /min Marycarmen Jennifer [facility] 09-21-2022 15:27-0400 SaO2% (BldA) [Mass fraction] 96 % Marycarmen Jennifer [facility] 09-21-2022 15:27-0400 Systolic blood pressure 143 mm[Hg] Marycarmen Jennifer [facility] 09-21-2022 06:25-0400 Body weight 103.6 kg Marycarmen Jennifer [facility] 09-19-2022 01:30-0400 Inhaled oxygen concentration 21 % [facility] 09-01-2022 09:59-0400 Diastolic blood pressure 68 mm[Hg] Marycarmen Jennifer [facility] 09-01-2022 09:59-0400 Heart rate 49 /min Marycarmen Jennifer [facility] 09-01-2022 09:59-0400 Systolic blood pressure 127 mm[Hg] Marycarmen [facility] 09-01-2022 09:57-0400 Body temperature 97.9 [degF] Marycarmen [facility] 09-01-2022 09:57-0400 Respiratory rate 18 /min Marycarmen [facility] 09-01-2022 09:57-0400 SaO2% (BldA) [Mass fraction] 93 % Marycarmen [facility] 09-01-2022 04:08-0400 Body mass index (BMI) [Ratio] 35.2 kg/m2 Marycarmen [facility] 09-01-2022 04:08-0400 Body weight 108.2 kg Marycarmen Jennifer [facility] 08-31-2022 11:42-0400 Body height 175.26 cm Marycarmen [facility] 08-19-2022 10:01-0400 Body height 175.26 cm Marycarmen Jennifer [facility] 08-19-2022 10:01-0400 Body mass index (BMI) [Ratio] 35.4 kg/m2 Marycarmen [facility] 08-19-2022 10:01-0400 Body weight 109.03 kg Marycarmen Jennifer [facility] 08-19-2022 10:01-0400 Diastolic blood pressure 79 mm[Hg] Marycarmen [facility] 08-19-2022 10:01-0400 Heart rate 62 /min Marycarmen Jennifer [facility] 08-19-2022 10:01-0400 Respiratory rate 18 /min Marycarmen Jennifer [facility] 08-19-2022 10:01-0400 Systolic blood pressure 144 mm[Hg] Marycarmen [facility] 04-16-2022 12:43-0500 Body height 175.[address] Marycarmen Rodriguez Work Phone: [facility] 04-16-2022 12:43-0500 Body mass index (BMI) [Ratio] 35.2 kg/m2 Dr. Marycarmen Rodriguez Work Phone: [facility] 04-16-2022 12:43-0500 Body temperature 97 [degF] Dr. Marycarmen Rodriguez Work Phone: [facility] 04-16-2022 12:43-0500 Body weight 108.[address] Marycarmen Rodriguez Work Phone: [facility] 04-16-2022 12:43-0500 Diastolic blood pressure 78 mm[Hg] Dr. Marycarmen Rodriguez Work Phone: [facility] 04-16-2022 12:43-0500 Heart rate 66 /min Dr. Marycarmen Rodriguez Work Phone: [facility] 04-16-2022 12:43-0500 Respiratory rate 18 /min Dr. Marycarmen Rodriguez Work Phone: [facility] 04-16-2022 12:43-0500 SaO2% (BldA) [Mass fraction] 94 % Dr. Marycarmen Rodriguez Work Phone: [facility] 04-16-2022 12:43-0500 Systolic blood pressure 125 mm[Hg] Dr. Marycarmen Rodriguez Work Phone: [facility] 04-14-2022 10:27-0500 Body mass index (BMI) [Ratio] 35.2 kg/m2 Dr. Marycarmen Rodriguez Work Phone: [facility] 04-14-2022 10:27-0500 Body weight 108.[address] Marycarmen Rodriguez Work Phone: [facility] 04-14-2022 10:27-0500 Diastolic blood pressure 68 mm[Hg] Dr. Marycarmen Rodriguez Work Phone: [facility] 04-14-2022 10:27-0500 Heart rate 64 /min Dr. Marycarmen Rodriguez Work Phone: [facility] 04-14-2022 10:27-0500 Respiratory rate 18 /min Dr. Marycarmen Rodriguez Work Phone: [facility] 04-14-2022 10:27-0500 Systolic blood pressure 130 mm[Hg] Dr. Marycarmen Rodriguez Work Phone: [facility] 03-27-2022 13:25-0500 Body temperature 97.9 [degF] Dr. Marycarmen Rodriguez Work Phone: [facility] 03-27-2022 13:25-0500 Diastolic blood pressure 86 mm[Hg] Dr. Marycarmen Rodriguez Work Phone: [facility] 03-27-2022 13:25-0500 Heart rate 86 /min Dr. Marycarmen Rodriguez Work Phone: [facility] 03-27-2022 13:25-0500 Respiratory rate 14 /min Dr. Marycarmen Rodriguez Work Phone: [facility] 03-27-2022 13:25-0500 SaO2% (BldA) [Mass fraction] 96 % Dr. Marycarmen Rodriguez Work Phone: [facility] 03-27-2022 13:25-0500 Systolic blood pressure 134 mm[Hg] Dr. Marycarmen Rodriguez Work Phone: [facility] 01-07-2022 11:07-0400 Body mass index (BMI) [Ratio] 34.9 kg/m2 Dr. Marycarmen Rodriguez Work Phone: [facility] Work Phone: 01-07-2022 11:07-0400 Body temperature 97.4 [degF] Dr. Marycarmen Rodriguez Work Phone: [facility] Work Phone: 01-07-2022 11:07-0400 Body weight 107.[address] Marycarmen Rodriguez Work Phone: [facility] Work Phone: 01-07-2022 11:07-0400 Diastolic blood pressure 87 mm[Hg] Dr. Marycarmen Rodriguez Work Phone: [facility] Work Phone: 01-07-2022 11:07-0400 Heart rate 60 /min Dr. Marycarmen Rodriguez Work Phone: [facility] Work Phone: 01-07-2022 11:07-0400 Respiratory rate 16 /min Dr. Marycarmen Rodriguez Work Phone: [facility] Work Phone: 01-07-2022 11:07-0400 SaO2% (BldA) [Mass fraction] 96 % Dr. Marycarmen Rodriguez Work Phone: [facility] Work Phone: 01-07-2022 11:07-0400 Systolic blood pressure 155 mm[Hg] Dr. Marycarmen Rodriguez Work Phone: [facility] Work Phone: 11-21-2021 10:24-0400 Body height 175.[address] Marycarmen Rodriguez Work Phone: [facility] Work Phone: 11-21-2021 10:24-0400 Body mass index (BMI) [Ratio] 34.9 kg/m2 Dr. Marycarmen Rodriguez Work Phone: [facility] Work Phone: 11-21-2021 10:24-0400 Body weight 107.[address] Marycarmen Rodriguez Work Phone: [facility] Work Phone: 11-21-2021 10:24-0400 Diastolic blood pressure 77 mm[Hg] Dr. Marycarmen Rodriguez Work Phone: [facility] Work Phone: 11-21-2021 10:24-0400 Heart rate 61 /min Dr. Marycarmen Rodriguez Work Phone: [facility] Work Phone: 11-21-2021 10:24-0400 Respiratory rate 18 /min Dr. Marycarmen Rodriguez Work Phone: [facility] Work Phone: 11-21-2021 10:24-0400 SaO2% (BldA) [Mass fraction] 97 % Dr. Marycarmen Rodriguez Work Phone: [facility] Work Phone: 11-21-2021 10:24-0400 Systolic blood pressure 138 mm[Hg] Dr. Marycarmen Rodriguez Work Phone: [facility] Work Phone: 11-16-2021 16:49-0400 Diastolic blood pressure 87 mm[Hg] Dr. Marycarmen Rodriguez Work Phone: [facility] Work Phone: 11-16-2021 16:49-0400 Heart rate 53 /min Dr. Marycarmen Rodriguez Work Phone: [facility] Work Phone: 11-16-2021 16:49-0400 Respiratory rate 16 /min Dr. Marycarmen Rodriguez Work Phone: [facility] Work Phone: 11-16-2021 16:49-0400 SaO2% (BldA) [Mass fraction] 93 % Dr. Marycarmen Rodriguez Work Phone: [facility] Work Phone: 11-16-2021 16:49-0400 Systolic blood pressure 117 mm[Hg] Dr. Marycarmen Rodriguez Work Phone: [facility] Work Phone: 11-16-2021 12:55-0400 Body mass index (BMI) [Ratio] 33.2 kg/m2 Dr. Marycarmen Rodriguez Work Phone: [facility] Work Phone: 11-16-2021 12:55-0400 Body temperature 97.6 [degF] Dr. Marycarmen Rodriguez Work Phone: [facility] Work Phone: 11-16-2021 12:55-0400 Body weight 102.[address] Marycarmen Rodriguez Work Phone: [facility] Work Phone: 09-16-2021 10:37-0400 Body height 175.[address] Marycarmen Rodriguez Work Phone: [facility] Work Phone: 09-16-2021 10:37-0400 Body mass index (BMI) [Ratio] 35.7 kg/m2 Dr. Marycarmen Rodriguez Work Phone: [facility] Work Phone: 09-16-2021 10:37-0400 Body weight 109.[address] Marycarmen Rodriguez Work Phone: [facility] Work Phone: 09-16-2021 10:37-0400 Diastolic blood pressure 69 mm[Hg] Dr. Marycarmen Rodriguez Work Phone: [facility] Work Phone: 09-16-2021 10:37-0400 Heart rate 50 /min Dr. Marycarmen Rodriguez Work Phone: [facility] Work Phone: 09-16-2021 10:37-0400 Respiratory rate 18 /min Dr. Marycarmen Rodriguez Work Phone: [facility] Work Phone: 09-16-2021 10:37-0400 Systolic blood pressure 122 mm[Hg] Dr. Marycarmen Rodriguez Work Phone: [facility] Work Phone: 08-01-2021 10:02-0400 Body mass index (BMI) [Ratio] 35.7 kg/m2 Dr. Marycarmen Rodriguez Work Phone: [facility] Work Phone: 08-01-2021 10:02-0400 Body weight 109.[address] Marycarmen Rodriguez Work Phone: [facility] Work Phone: 08-01-2021 10:02-0400 Diastolic blood pressure 81 mm[Hg] Dr. Marycarmen Rodriguez Work Phone: [facility] Work Phone: 08-01-2021 10:02-0400 Heart rate 59 /min Dr. Marycarmen Rodriguez Work Phone: [facility] Work Phone: 08-01-2021 10:02-0400 Respiratory rate 18 /min Dr. Marycarmen Rodriguez Work Phone: [facility] Work Phone: 08-01-2021 10:02-0400 SaO2% (BldA) [Mass fraction] 97 % Dr. Marycarmen Rodriguez Work Phone: [facility] Work Phone: 08-01-2021 10:02-0400 Systolic blood pressure 133 mm[Hg] Dr. Marycarmen Rodriguez Work Phone: [facility] Work Phone: 08-01-2021 10:02-0400 Body height 175.[address] Marycarmen Rodriguez Work Phone: [facility] Work Phone: 08-01-2021 10:02-0400 Body mass index (BMI) [Ratio] 35.7 kg/m2 Dr. Marycarmen Rodriguez Work Phone: [facility] Work Phone: 08-01-2021 10:02-0400 Body weight [address] Marycarmen Rodriguez Work Phone: [facility] Work Phone: 08-01-2021 10:02-0400 Diastolic blood pressure 81 mm[Hg] Dr. Marycarmen Rodriguez Work Phone: [facility] Work Phone: 08-01-2021 10:02-0400 Heart rate 59 /min Dr. Marycarmen Rodriguez Work Phone: [facility] Work Phone: 08-01-2021 10:02-0400 Respiratory rate 18 /min Dr. Marycarmen Rodriguez Work Phone: [facility] Work Phone: 08-01-2021 10:02-0400 SaO2% (BldA) [Mass fraction] 97 % Dr. Marycarmen Rodriguez Work Phone: [facility] Work Phone: 08-01-2021 10:02-0400 Systolic blood pressure 133 mm[Hg] Dr. Marycarmen Rodriguez Work Phone: [facility] Work Phone: 06-10-2021 18:38-0500 Diastolic blood pressure 75 mm[Hg] Dr. Marycarmen Rodriguez Work Phone: [facility] Work Phone: 06-10-2021 18:38-0500 Heart rate 57 /min Dr. Marycarmen Rodriguez Work Phone: [facility] Work Phone: 06-10-2021 18:38-0500 Respiratory rate 14 /min Dr. Marycarmen Rodriguez Work Phone: [facility] Work Phone: 06-10-2021 18:38-0500 SaO2% (BldA) [Mass fraction] 96 % Dr. Marycarmen Rodriguez Work Phone: [facility] Work Phone: 06-10-2021 18:38-0500 Systolic blood pressure 121 mm[Hg] Dr. Marycarmen Rodriguez Work Phone: [facility] Work Phone: 06-10-2021 13:36-0500 Body mass index (BMI) [Ratio] 34 kg/m2 Dr. Marycarmen Rodriguez Work Phone: [facility] Work Phone: 06-10-2021 13:36-0500 Body temperature 97 [degF] Dr. Marycarmen Rodriguez Work Phone: [facility] Work Phone: 06-10-2021 13:36-0500 Body weight 104.[address] Marycarmen Rodriguez Work Phone: [facility] Work Phone: 05-19-2021 16:55-0500 Respiratory rate 16 /min Dr. Marycarmen Rodriguez Work Phone: [facility] Work Phone: 05-19-2021 14:43-0500 Body temperature 96.5 [degF] Dr. Marycarmen Rodriguez Work Phone: [facility] Work Phone: 05-19-2021 14:43-0500 Diastolic blood pressure 94 mm[Hg] Dr. Marycarmen Rodriguez Work Phone: [facility] Work Phone: 05-19-2021 14:43-0500 Heart rate 63 /min Dr. Marycarmen Rodriguez Work Phone: [facility] Work Phone: 05-19-2021 14:43-0500 SaO2% (BldA) [Mass fraction] 99 % Dr. Marycarmen Rodriguez Work Phone: [facility] Work Phone: 05-19-2021 14:43-0500 Systolic blood pressure 172 mm[Hg] Dr. Marycarmen Rodriguez Work Phone: [facility] Work Phone: 05-19-2021 14:42-0500 Body mass index (BMI) [Ratio] 34 kg/m2 Dr. Marycarmen Rodriguez Work Phone: [facility] Work Phone: 05-19-2021 14:42-0500 Body weight 104.[address] Marycarmen Rodriguez Work Phone: [facility] Work Phone: 12-26-2020 10:29-0400 Diastolic blood pressure 76 mm[Hg] Eladio Ingram MD Work Phone: [facility] 12-26-2020 10:29-0400 Systolic blood pressure 141 mm[Hg] Eladio Ingram MD Work Phone: [facility] 12-26-2020 10:24-0400 Body height 175.3 cm Eladio Ingram MD Work Phone: [facility] 12-26-2020 10:24-0400 Body mass index (BMI) [Ratio] 33.67 kg/m2 Eladio Ingram MD Work Phone: [facility] 12-26-2020 10:24-0400 Body weight 103.42 kg Eladio Ingram MD Work Phone: [facility] 12-26-2020 10:24-0400 Heart rate 59 /min Eladio Ingram MD Work Phone: [facility] 12-26-2020 10:24-0400 SaO2% (BldA) [Mass fraction] 95 % Eladio Ingram MD Work Phone: [facility] 10-09-2020 10:53-0400 Diastolic blood pressure 72 mm[Hg] Fernanda Acuña HARNESS CLEANER Work Phone: [facility] 10-09-2020 10:53-0400 Systolic blood pressure 134 mm[Hg] Fernanda Acuña HARNESS CLEANER Work Phone: [facility] 10-09-2020 09:59-0400 Body mass index (BMI) [Ratio] 34.6 kg/m2 Fernanda Acuña CNP Work Phone: [facility] 10-09-2020 09:59-0400 Body weight 106.28 kg Fernanda Acuña CNP Work Phone: [facility] 10-09-2020 09:59-0400 Heart rate 58 /min Fernanda Acuña CNP Work Phone: [facility] 10-09-2020 09:59-0400 Respiratory rate 16 /min Fernanda Acuña CNP Work Phone: [facility] 10-09-2020 09:59-0400 SaO2% (BldA) [Mass fraction] 94 % Fernanda Acuña CNP Work Phone: [facility] 12-17-2016 11:21-0400 BMI (Body Mass Index) 32.99 kg/m2 Eladio Ingram [facility] Work Phone: 12-17-2016 11:21-0400 BP Diastolic 82 mm[Hg] Eladio Ingram [facility] Work Phone: 12-17-2016 11:21-0400 BP Systolic 150 mm[Hg] Eladio Ingram [facility] Work Phone: 12-17-2016 11:21-0400 Height 175.3 cm Eladio Ingram [facility] Work Phone: 12-17-2016 11:21-0400 Pulse (Heart Rate) 70 /min Eladio Ingram [facility] Work Phone: 12-17-2016 11:21-0400 Pulse Oximetry 97 % Eladio Ingram [facility] Work Phone: 12-17-2016 11:21-0400 Weight 101.33 kg Eladio Nataly [facility] Work Phone: Encounters Encounter Date Encounter Type Care Provider Facility Start: 11-20-2024 [facility] Facility: [facility] Start: 10-26-2024 ambulatory Marycarmen Jennifer Facility: [facility] Start: 10-25-2024 End: 10-25-2024 Patient encounter procedure Gustabo Pérez IT PROFESSIONAL-C -[facility] Work Phone: Start: 10-25-2024 End: 10-25-[address] Marycarmen Rodriguez DO Work Phone: [facility] Work Phone: Start: 10-18-2024 End: 10-18-[address] Marycarmen Rodriguez DO Work Phone: [facility] Work Phone: Start: 10-18-2024 End: 10-18-2024 Patient encounter procedure Marni Horn IT PROFESSIONALAgnieszka -[facility] Work Phone: Start: 10-18-2024 End: 10-18-[address] Marycarmen Rodriguez DO Work Phone: [facility] Work Phone: Start: 10-18-2024 End: 10-18-[address] Brooks Carpenter MD -Laboratory Work Phone: Start: 10-18-2024 End: 10-18-2024 ambulatory Marycarmen Rodriguez Facility:[facility] Start: 09-29-2024 End: 09-29-[address] Marycarmen Rodriguez DO Work Phone: [facility] Work Phone: Start: 09-29-2024 End: 09-29-[address] Marycarmen Rodriguez DO -Laboratory [facility] Work Phone: Start: 09-29-2024 End: 09-29-2024 ambulatory Marycarmen Jennifer Facility:[facility] Start: 09-22-2024 End: 09-22-[address] Marycarmen Rodriguez DO Work Phone: [facility] Work Phone: Start: 09-22-2024 End: 09-22-2024 Patient encounter procedure Marni PRAKASHC -Sleep Lab Work Phone: Start: 09-22-2024 End: 09-22-2024 ambulatory Marycarmen Jennifer Facility:[facility] Start: 09-20-2024 End: 09-20-[address] Marycarmen Rodriguez DO Work Phone: [facility] Work Phone: Start: 09-20-2024 End: 09-20-2024 Patient encounter procedure ELIAZAR Maren Brendon -Laboratory Work Phone: Start: 09-20-2024 End: 09-20-2024 Patient encounter procedure ELIAZAR Olivas -[facility] Work Phone: Start: 09-20-2024 End: 09-20-[address] Marycarmen Rodriguez DO Work Phone: [facility] Work Phone: Start: 09-20-2024 End: 09-20-2024 ambulatory Maren Olivas Facility:[facility] Start: 08-03-2024 End: 08-03-[address] Marycarmen Rodriguez DO Work Phone: [facility] Work Phone: Start: 08-03-2024 End: 08-03-2024 Patient encounter procedure Marni PRAKASHC -Sleep Lab Work Phone: Start: 08-03-2024 End: 08-03-2024 ambulatory Marycarmen Rodriguez Facility:[facility] Start: 07-18-2024 ambulatory [facility] Facility:[facility] Start: 07-18-2024 Non-patient / Non-visit Dr. Zen schultz DO -[facility] Start: 07-18-2024 End: 07-18-[address] Marycarmen Rodriguez DO Work Phone: [facility] Work Phone: Start: 07-18-2024 End: 07-18-2024 Patient encounter procedure Marni Horn NP-C -Pulmonary Services/Neurology Work Phone: Start: 07-17-2024 Non-patient / Non-visit Dr. Zen schultz DO -[facility] Start: 07-17-2024 End: 07-18-[address] Marycarmen Rodriguez DO Work Phone: [facility] Work Phone: Start: 07-17-2024 End: 07-17-2024 Patient encounter procedure Marni POOL -Sleep Lab Work Phone: Start: 07-17-2024 End: 07-17-2024 ambulatory [facility] Facility:[facility] Start: 07-07-2024 End: 07-07-[address] Marycarmen Rodriguez DO Work Phone: [facility] Work Phone: Start: 07-07-2024 End: 07-07-2024 Patient encounter procedure Marni POOL -Sleep [facility] Work Phone: Start: 07-07-2024 End: 07-07-2024 ambulatory [facility] Facility:[facility] Start: 07-03-2024 End: 07-03-2024 Patient encounter procedure Marni POOL -[facility] Work Phone: Start: 07-03-2024 End: 07-03-2024 ambulatory [facility] Facility:[facility] Start: 06-30-2024 End: 06-30-[address] Marycarmen Rodriguez DO Work Phone: [facility] Work Phone: Start: 06-30-2024 End: 06-30-[address] Marycarmen Rodriguez DO -Laboratory, [facility] Start: 06-30-2024 End: 06-30-2024 ambulatory [facility] Facility:[facility] Start: 04-17-2024 End: 04-17-2024 Patient encounter procedure Gustabo PRAKASHC -[facility] Work Phone: Start: 04-17-2024 End: 04-17-2024 ambulatory Marycarmen Rodriguez Facility:[facility] Start: 04-17-2024 End: 04-17-2024 ambulatory Gustabo Pérez NP Facility:[facility] Start: 03-27-2024 End: 03-27-[address] Jose Hay MD -[facility] Work Phone: Start: 03-27-2024 End: 03-27-2024 ambulatory Marycarmen Rodriguez Facility:[facility] Start: 03-23-2024 End: 03-23-[address] Marycarmen Rodriguez -[facility] Start: 03-23-2024 End: 03-23-2024 ambulatory [facility] Facility:[facility] Start: 03-20-2024 End: 03-20-[address] Jose Hay MD -[facility] Work Phone: Start: 03-20-2024 End: 03-20-2024 ambulatory Marycarmen Jennifer Facility:[facility] Start: 11-18-2023 End: 11-18-2023 ambulatory [facility] Facility:[facility] Start: 10-29-2023 End: 10-29-2023 ambulatory Marycarmen [facility] Facility:[facility] Start: 05-07-2023 End: 05-07-2023 ambulatory [facility] Work Phone: Start: 05-07-2023 End: 05-07-2023 Patient encounter procedure [facility] Start: 12-29-2022 Non-patient / Non-visit Dr. Ap Rodriguez Work Phone: [facility] Work Phone: Start: 12-28-2022 Non-patient / Non-visit Dr. Ap Rodriguez Work Phone: [facility] Start: 12-28-2022 End: 12-28-[address] Marycarmen Rodriguez Work Phone: [facility] Work Phone: Start: 12-28-2022 End: 12-28-[address] Marycarmen Rodriguez Work Phone: [facility]-Cardiovascula r Services Work Phone: Start: 12-21-2022 End: 12-21-2022 Admission to same day surgery center Dr. Marycarmen Rodriguez Work Phone: [facility]-Yeast Maker/Special Procedures Work Phone: Start: 12-21-2022 End: 12-21-[address] Marycarmen Rodriguez Work Phone: [facility] Work Phone: Start: 12-15-2022 End: 12-15-[address] Marycarmen Rodriguez Work Phone: [facility] Work Phone: Start: 12-15-2022 End: 12-15-[address] Marycarmen Rodriguez Work Phone: [facility]-Laboratory Work Phone: Start: 12-15-2022 End: 12-15-[address] Marycarmen Rodriguez Work Phone: [facility] Work Phone: Start: 10-16-2022 End: 10-16-2022 ambulatory Marycarmen SWAIN [facility] Work Phone: Start: 10-16-2022 End: 10-16-2022 Patient encounter procedure Marycarmen SWAIN [facility]-Pulmonary Services/Neurology Start: 10-13-2022 End: 10-13-2022 ambulatory Marycarmen SWAIN [facility] Work Phone: Start: 10-13-2022 End: 10-13-2022 Patient encounter procedure Marycarmen SWAIN [facility] Start: 09-21-2022 Non-patient / Non-visit Marycarmen Stutzma n [facility] Inpatient Physicians Start: 09-20-2022 Non-patient / Non-visit Marycarmen Porter gifford [facility] Start: 09-19-2022 Non-patient / Non-visit Marycarmen gifford [facility]patient [facility] Start: 09-18-2022 Non-patient / Non-visit Marycarmen gifford [facility] Start: 09-17-2022 End: 09-17-2022 Non-patient / Non-visit Marycarmen SWAIN [facility] Inpatient Physicians Start: 09-17-2022 End: 09-21-2022 Evaluation and management of [facility] Start: 09-09-2022 Non-patient / Non-visit Marycarmen gifford [facility] Start: 09-01-2022 Non-patient / Non-visit Marycarmen gifford [facility] Start: 08-31-2022 End: 08-31-2022 Non-patient / Non-visit Marycarmen Rodriguez [facility] Start: 08-31-2022 Non-patient / Non-visit Marycarmen gifford [facility] Start: 08-31-2022 End: 09-01-2022 Evaluation and management of inpatient Marycarmen Rodriguez [facility] Start: 08-31-2022 End: 09-01-2022 observation encounter Marycarmen Rodriguez [facility] Work Phone: Start: 08-19-2022 End: 08-19-2022 ambulatory Marycarmen Rodriguez [facility] Work Phone: Start: 08-19-2022 End: 08-19-2022 Patient encounter procedure Marycarmen Rodriguez [facility] Start: 08-11-2022 Non-patient / Non-visit Marycarmen Porter gifford [facility] Start: 06-11-2022 End: 06-11-[address] Marycarmen Rodriguez Work Phone: [facility] Work Phone: Start: 06-11-2022 End: 06-11-[address] Marycarmen Rodriguez Work Phone: [facility]Ritesh [facility] Start: 04-21-2022 Non-patient / Non-visit Dr. Ap Rodriguez Work Phone: [facility] Start: 04-21-2022 End: 04-21-[address] Marycarmen Rodriguez Work Phone: [facility] Work Phone: Start: 04-21-2022 End: 04-21-[address] Marycarmen Rodriguez Work Phone: [facility]-Cardiovascula r Services Start: 04-16-2022 End: 04-16-[address] Marycarmen Rodriguez Work Phone: [facility]-Pulmonary Medicine [facility] Start: 04-14-2022 End: 04-14-[address] Marycarmen Rodriguez Work Phone: [facility] Work Phone: Start: 04-14-2022 End: 04-14-[address] Marycarmen Rodriguez Work Phone: [facility]-Radiology, [facility] Start: 04-14-2022 End: 04-14-[address] Marycarmen Rodriguez Work Phone: [facility] Start: 03-27-2022 End: 03-27-[address] Marycarmen Rodriguez Work Phone: [facility] Start: 01-20-2022 End: 01-20-[address] Marycarmen Rodriguez Work Phone: [facility]-Cat Scan, [facility] Start: 01-07-2022 End: 01-07-[address] [facility]carmen Rodriguez [facility] Start: 11-27-2021 Non-patient / Non-visit Dr. Ap Rodriguez Work Phone: [facility] Start: 11-26-2021 End: 11-26-[address] Marycarmen Rodriguez Work Phone: [facility]-Pulmonary Services/Neurology Start: 11-21-2021 End: 11-21-[address] Marycarmen Rodriguez Work Phone: [facility] Start: 11-16-2021 End: 11-16-2021 Emergency department patient visit Dr. Marycarmen Rodriguez Work Phone: [facility]-Emergency Department Start: 10-28-2021 End: 10-28-[address] [facility]armen Rodriguez [facility] Start: 09-16-2021 End: 09-16-[address] Marycarmen Rodriguez [facility] Start: 09-16-2021 End: 09-16-[address] Marycarmen Rodriguez Work Phone: [facility] Start: 08-15-2021 Non-patient / Non-visit Dr. pA Rodriguez Work Phone: [facility] Start: 08-15-2021 Non-patient / Non-visit Dr. Ap Rodriguez Work Phone: [facility] Start: 08-15-2021 End: 08-15-[address] Marycarmen Rodriguez Work Phone: [facility]-Cardiovascula r Services Start: 08-01-2021 End: 08-01-[address] Marycarmen Rodriguez Work Phone: [facility] Start: 06-10-2021 End: 06-10-2021 Emergency department patient visit Dr. Marycarmen Rodriguez Work Phone: [facility]-Emergency Department Start: 05-19-2021 End: 05-19-2021 Emergency department patient visit Dr. Marycarmen Rodriguez Work Phone: [facility]-Emergency Department Start: 05-16-2021 End: 05-16-[address] 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 (HCC) (Primary Dx) Start: 12-31-2020 Admission to [facility] Eladio Ingram MD Work Phone: [facility] Office Comment on above: Chest pain, unspecif ied type (Primary Dx) Start: 12-26-2020 End: 12-30-2020 Orders Only Justa Euceda RN [facility] Office Start: 12-26-2020 End: 12-26-2020 Office outpatient visit 25 minutes Marycarmen Rodriguez DO [facility] Phone[facility] Comment on above: Essential hypertensi on (Primary Dx); 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, unspecified whether dry creek or transplanted heart (HCC); 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); Mixed hyperlipidemia Start: 12-18-2020 ambulatory MIN HOWARD Facilit y:[facility] Start: 10-15-2020 End: 10-16-2020 [facility] Start: 10-15-2020 End: 10-15-2020 Subsequent hospital visit by physician Eladio Ingram MD Work Phone: [facility] Heart [facility] V[facility] Physicians Comment on above: Arrived Start: 10-10-2020 ambulatory FERNANDA PEREZSULMA [facility] Start: 10-09-2020 End: 10-09-2020 Orders Only Fernanda Acuña HARNESS CLEANER Work Phone: [facility] Office Comment on above: DEAN (dyspnea on exer tion) (Primary Dx) Start: 10-09-2020 End: 10-09-2020 Office outpatient new 45 minutes Fernanda Silvia Acuña HARNESS CLEANER Work Phone: [facility] Office Comment on above: DEAN (dyspnea on exer tion); Essential hypertension; Type 2 diabetes mellitus without complication, without long-term current use of insulin (HCC); MATTHEW (obstructive sleep apnea); Coronary artery disease involving dry creek coronary artery of dry creek heart without angina pectoris Start: 10-04-2020 End: 10-04-2020 Orders Only Deisi March RN [facility] Office Comment on above: Shortness of breath (Primary Dx) Start: 12-17-2016 Office/outpatient vi sit, est, level 4 Eladio Ingram Work Phone: [facility] Heart [facility] V[facility] Physicians Start: 11-28-2016 End: 11-28-2016 Patient encounter procedure [facility] Procedures Date Procedure Procedure Detail Performing Clinician Start: 10-18-2024 Methadone measuremen t, urine Dr. Marycarmen Rodriguez DO Work Phone: Start: 10-18-[address] Marycarmen adler DO Work Phone: Comment on above: Test Ordered: [id number]+[id number] Screen, Urine Negative ng/mL UI Reference Range: Pszulg=736Agscuaamrfo test includes Amphetamine and Methamphetamine.Barbiturates Negative ng/mL UI Reference Range: Qqchcy=979Lkaibcodowfzufj Negative ng/mL UI Reference Range: Quyvmj=095Epxrcbl (Metab.), Urine Negative ng/mL UI Reference Range: Hketiw=189Vqnxaqp Note: ng/mL UI See Final Results Reference Range: Fimpne=804Yqbtlg test includes Codeine, Morphine, Hydromorphone, Hydrocodone.Opiates Positive [A ] UI Reference Range: Lzphrn=462Iemthi test includes Codeine, Morphine, Hydromorphone, Hydrocodone.Codeine Negative UI Reference Range: Mfreub=549Zestyroo Negative UI Reference Range: Bwzrgq=821Qvrmsbmgxhvgo Negative UI Reference Range: Rzvtny=717Rrkrkvvcuvp Positive [A ] UI Reference Range: .Hydrocodone Conf, MS, UR 349 ng/mL UI Reference Range: Wgdpda=9379-Eleduoomswszcf, Urine Negative ng/mL UI Reference Range: Cutoff=10Oxycodone/Oxymorphone, Urine Negative ng/mL UI Reference Range: Ryqssw=504Rgnt includes Oxycodone and OxymorphonePCP, Urine Negative ng/mL UI Reference Range: Cutoff=25Methadone Screen, Urine Negative ng/mL UI Reference Range: Yukzdm=734Lkjhungsifsn, Urine Negative ng/mL UI Reference Range: Flyqem=556Kurqbhqi, Urine Negative ng/mL UI Reference Range: Cutoff=2.0Test includes Fentanyl and NorfentanylThis test was developed and its performance characteristicsdetermined by [facility]. It has not been cleared orapproved by the Food and Drug Administration.Tramadol Negative ng/mL UI Reference Range: Psmfeo=241Wocnnfqxnglxv, Urine Negative ng/mL UI Reference Range: Cutoff=10Creatinine, Urine 36.9 mg/dL UI Reference Range: 20.0-300.0pH, Urine 6.1 UI Reference Range: 4.5-8.9Performed at: [facility] [id number] [facility], [place], [place] [id number] Director: Erik Wallis PhD, Phone: [phone] at: [facility] [address] [id number] Director: Bharath Hawthorne PhD, Phone: [phone] Start: 09-21-2022 Viral antigen assay Matilda SWAIN [...] ecg w/le ast 12 lds w/i&r Fernanda Acuña [facility] Work Phone: Start: 08-18-2018 History of percutane ous transluminal coronary angioplasty History of percutaneous transluminal coronary angioplasty Dr. 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 Alexandr Mcclain Start: 08-13-2017 History of placement of stent for coronary artery disease History of coronary artery stent placement Dr. 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 Procedure aborted. 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4009FPD-LADY-Nn and Stent-Mid RCA x 2 Multi Link Mini Vision Rx Stent 4.0 x 28 mm 01/21/2006 Plan of Treatment Date Care Activity Detail Author Start: 10-25-2024 Evaluation of diagnostic study results [facility] Start: 07-25-2024 Walking distance 6 minutes [facility] Start: 07-17-2024 Measurement of respiratory function [facility] Start: 12-21-2022 Patient discharge [facility] Start: 10-05-2022 Measurement of respiratory function [facility] Start: 09-21-2022 Patient discharge [facility] Start: 09-20-2022 Telepractice consultation [facility] Start: 09-18-2022 Following clinical pathway protocol [facility] Start: 09-17-2022 Aspiration precautions [facility] Start: 09-17-2022 Assessment of risk of venous thromboembolism [facility] Start: 09-17-2022 Cardiac monitoring [facility] Start: 09-17-2022 Care regimes management [facility] Start: 09-17-2022 Catheterization of vein [facility] Start: 09-17-2022 Continuous positive airway pressure ventilation treatment [facility] Start: 09-17-2022 Continuous pulse oximetry [facility] Start: 09-17-2022 Elevation of head of bed [facility] Start: 09-17-2022 Exercises [facility] Start: 09-17-2022 Fall prevention [facility] Start: 09-17-2022 Implementation of planned interventions [facility] Start: 09-17-2022 Inhalation therapy procedure [facility] Start: 09-17-2022 Insertion of catheter into peripheral vein [facility] Start: 09-17-2022 Introduction of urinary catheter [facility] Start: 09-17-2022 Measuring intake and output [facility] Start: 09-17-2022 Notification of physician [facility] Start: 09-17-2022 Oxygen therapy [facility] Start: 09-17-2022 End: 09-18-2022 Patient referral to dietitian [facility] Start: 09-17-2022 Providing care according to standard [facility] Start: 09-17-2022 Provision of activity privileges [facility] Start: 09-17-2022 Referral to occupational therapist [facility] Start: 09-17-2022 Referral to service [facility] Start: 09-17-2022 Speech therapy assessment [facility] Start: 09-17-2022 Tobacco use cessation education [facility] Start: 09-17-2022 [facility] Start: 09-17-2022 Admission procedure [facility] Start: 09-01-2022 Patient discharge [facility] Start: 08-31-2022 Patient referral [facility] Work Phone: Start: 08-31-2022 Following clinical pathway protocol [facility] Start: 08-31-2022 Pulse taking [facility] Start: 08-31-2022 Cardiac monitoring [facility] Start: 08-31-2022 Cardiac rehabilitation - phase 1 [facility] Start: 08-31-2022 Cardiac rehabilitation - phase 2 [facility] Start: 08-31-2022 Notification of physician [facility] Start: 08-31-2022 Oxygen therapy [facility] Start: 08-31-2022 Patient discharge [facility] Start: 08-31-2022 Taking patient vital signs [facility] Start: 08-31-2022 Vascular disease risk assessment [facility] Start: 08-31-2022 Vital signs measurements [facility] Start: 08-31-2022 End: 08-31-2022 [facility] Start: 08-31-2022 Admission procedure [facility] Start: 11-16-2021 [facility] Work Phone: Start: 01-10-2021 End: 01-10-2021 Admission to same day surgery center 01/10/2021 Surgery Cardiology Eladio Ingram MD [address] [facility] [address] [place] [address] Left Heart Cath Possible PTCA/Stent [facility] Yeast Maker Comment on above: Left Heart Cath Possible PTCA/Stent Start: 01-10-2021 Subsequent hospital visit by physician 01/10/2021 Hospital Encounter Eladio Ingram MD [address] [facility] [address] [place] [address] [facility] Procedural Care Unit Start: 01-01-2021 Influenza vaccination [facility] Start: 12-26-2020 End: 12-26-2020 Patient encounter procedure 12/26/2020 Office [place] [address] [place] [address] [id number] Eladio Ingram MD [address] [facility] [address] [place] [address] [phone] [facility] Office Start: 10-15-2020 End: 10-15-2020 Patient encounter procedure 10/15/2020 Appointment Cardiology Eladio Ingram MD [address] [facility] [address] [place] [address] [phone] [facility] Start: 10-09-2020 End: 10-09-2020 Patient encounter procedure 10/09/2020 Office Visit Cardiology Fernanda Acuña, [employer] [address] [place] [address] [phone] [facility] Office Start: 11-05-2017 Prostate specific antigen measurement PSA Level [facility] Start: 06-01-2017 HEMOGLOBIN A1C HEMOGLOBIN A1C [facility] Work Phone: Start: 06-01-2017 Hemoglobin A1c measurement A1C [facility] Start: 06-01-2017 Hemoglobin A1c/Hemoglobin.total mass fraction (Bld) HEMOGLOBIN A1C [facility] Work Phone: Start: 01-01-2017 SEQUENTIAL INFLUENZA VACCINE (#1) SEQUENTIAL INFLUENZA VACCINE (#1) [facility] Work Phone: Start: 12-17-2016 Ambulatory 12/17/2016 Office Visit Cardiology Eladio Ingram MD [address] [place] [address] [phone] [facility] Start: 2010 ABDOMINAL AORTIC ULTRASOUND ABDOMINAL AORTIC ULTRASOUND [facility] Work Phone: Start: 2010 Fall risk assessment Falls Risk Assessment [facility] Start: 2010 PNEUMOCOCCAL VACCINE AGE 65+ (1 of 2 - PCV13) PNEUMOCOCCAL VACCINE AGE 65+ (1 of 2 - PCV13) [facility] Work Phone: Start: 2005 Zoster vacc, sc ZOSTER VACCINE [facility] Work Phone: Start: 08-01-1995 Administration of herpes zoster vaccine Zoster Vaccines (1 of 2) [facility] Start: 08-01-1995 Screening for malignant neoplasm of colon [facility] Start: 08-01-1963 Hepatitis C screening Hepatitis C Screening [facility] Start: 1957 COVID-19 Vaccine (1) COVID-19 Vaccine (1) [facility] Start: 08-01-1955 3 comp foot exam completed FOOT EXAM [facility] Work Phone: Start: 08-01-1955 Albumin Test strip detection limit <= 20 mg/L mass conc (U) URINE MICROALBUMIN [facility] Work Phone: Start: 08-01-1955 Diabetic foot examination Foot Exam [facility] Start: 08-01-1955 Microalbumin measurement, urine, quantitative Urine Microalbumin [facility] Start: 08-01-1955 Ophthalmic examination and evaluation OPHTHALMOLOGY EXAM [facility] Start: 08-01-1955 FOOT EXAM FOOT EXAM [facility] Work Phone: Start: 08-01-1955 OPHTHALMOLOGY EXAM OPHTHALMOLOGY EXAM [facility] Work Phone: Start: 08-01-1955 URINE MICROALBUMIN URINE MICROALBUMIN [facility] Work Phone: Start: 08-01-1951 Pneumococcal Vaccine: Age 65+ (1 of 2 - PPSV23) Pneumococcal Vaccine: Age 65+ (1 of 2 - PPSV23) [facility] Start: 1948 History and physical examination, annual for health maintenance Wellness Visit [facility] Start: 1945 Colonoscopy COLONOSCOPY [facility] Work Phone: Start: 1945 Tetanus vaccination Tetanus: Every 10yrs [facility] Start: 1945 Colonoscopy COLONOSCOPY [facility] Work Phone: Start: 1945 End: 1945 HEPATITIS C SCREENING HEPATITIS C SCREENING [facility] Work Phone: Start: 1945 End: 1945 TETANUS EVERY 10 YR TETANUS EVERY 10 YR [facility] Work Phone: End: 12-26-2021 Basic metabolic 2000 panel - Serum or Plasma Basic metabolic panel Lab Routine 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, unspecified whether dry creek or transplanted heart (HCC) Essential hypertension 1 Occurrences starting 12/26/2020 until 12/26/2021 [facility] Comment on above: 1 Occurrences starting 12/26/2020 until 12/26/2021 Basic metabolic 2000 panel - Serum or Plasma Basic metabolic panel Lab Routine 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, unspecified whether dry creek or transplanted heart (HCC) Essential hypertension 12/26/2020 11:28 AM EDT [facility] Basic metabolic 2008 panel with ionized calcium - Serum or Plasma [facility] End: 12-17-2017 Basic metabolic panel [AGGREGATE] Basic metabolic panel Routine MATTHEW (obstructive sleep apnea) Coronary artery disease involving dry creek coronary artery of dry creek heart without angina pectoris 1 Occurrences starting 12/17/2016 until 12/17/2017 [facility] Work Phone: Blood chemistry [facility] Catheterization of [facility] Catheterization of [facility] CBC W Auto Different ial panel - Blood [facility] End: 12-26-2021 Complete blood count with white cell differential, manual CBC and differential Lab Routine 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, unspecified whether dry creek or transplanted heart (HCC) Essential hypertension 1 Occurrences starting 12/26/2020 until 12/26/2021 [facility] Work Phone: Comment on above: 1 Occurrences starting 12/26/2020 until 12/26/2021 Complete blood count with white cell differential, manual CBC and differential Lab Routine 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, unspecified whether dry creek or transplanted heart (HCC) Essential hypertension 12/26/2020 11:28 AM EDT [facility] End: 01-10-2022 CT Angiogram Aorta Chest Abdomen Pelvis CT Angiogram Aorta Chest Abdomen Pelvis Imaging Routine 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) 1 Occurrences starting 01/10/2021 until 01/10/2022 [facility] Work Phone: Comment on above: 1 Occurrences starting 01/10/2021 until 01/10/2022 End: 12-04-2021 Echocardiography Echocardiogram complete Echocardiography Routine Shortness of breath 1 Occurrences starting 10/04/2020 until 12/04/2021 [facility] Comment on above: 1 Occurrences starting 10/04/2020 until 12/04/2021 LEFT HEART CATH POSS IBLE PTCA/STENT LEFT HEART CATH POSSIBLE PTCA/STENT [facility] End: 12-17-2017 Magnesium Magnesium Routine MATTHEW (obstructive sleep apnea) Coronary artery disease involving dry creek coronary artery of dry creek heart without angina pectoris 1 Occurrences starting 12/17/2016 until 12/17/2017 [facility] Work Phone: Measurement of respiratory function [facility] Work Phone: Natriuretic peptide. B prohormone N-Terminal [Mass/volume] in Serum or Plasma [facility] NM Heart Views W str ess and W radionuclide IV [facility] Patient Education [facility] Work Phone: Patient referral [facility] Work Phone: [facility] Immunizations Immunization Date Immunization Notes Care Provider Fa doyle 02-20-[address] Marycarmen Rodriguez Work Phone: [facility] 02-14-[address] Marycarmen Rodriguez Work Phone: [facility] 01-31-[address] Marycarmen Rodriguez Work Phone: [facility] 11-29-2016 HEMOGLOBIN A1C [facility] Work Phone: Payers Date Payer Category Payer Self-pay [id number] 2019 Unknown [id number] 1. [id number] 2019 Unknown [id number] 2012 Unknown [id number] 2.1 6.840.1.823309.3.249.13 2010 Medicare [id number] 2.16 .840.1.366410.3.249.13 2010 Medicare [id number] 1.2 .[id number] 2010 Medicare [id number] 2010 Medicare [id number] 1945 Unknown [id number] 2. 840.1.949662.3.579.2.594 1945 Unknown [id number] 2. 840.1.356176.3.579.2.902 1945 Unknown [id number] 2.16 840.1.101031.3.579.2.903 1945 Unknown [id number] 2.16 840.1.459273.3.579.2.903 1945 Unknown [id number] 2.16 840.1.835160.3.579.2.903 1945 Unknown [id number] 2.16 840.1.564673.3.579.2.903 1945 Unknown [id number] 2.16. 840.1.567869.3.579.2.903 1945 Unknown [id number] 2.16. 840.1.273933.3.579.2.903 1945 Unknown [id number] 2.16. 840.1.778653.3.579.2.903 1945 Unknown [id number] 2.16. 840.1.632169.3.579.2.903 Unknown [id number] 2.16.8 40.1.799918.3.579.2.462 Unknown [id number] 2.16.8 40.1.069368.3.579.2.462 Unknown [id number] 2.16.8 40.1.862362.3.579.2.462 Unknown [id number] 2.16.8 40.1.491507.3.579.2.462 Unknown [id number] 2.16.8 40.1.919948.3.579.2.462 Unknown [id number] 2.16.8 40.1.449501.3.579.2.462 Unknown [id number] 2.16.8 40.1.094344.3.579.2.462 Unknown [id number] 2.16.8 40.1.816144.3.579.2.462 Unknown [id number] 2.16.8 40.1.789705.3.579.2.462 Unknown [id number] 2.16.8 40.1.823667.3.579.2.462 Unknown [id number] 2.16.8 40.1.492228.3.579.2.462 Unknown [id number] 2.16.8 40.1.894945.3.579.2.462 Unknown [id number] 2.16.8 40.1.164973.3.579.2.462 Unknown [id number] 2.16.8 40.1.250863.3.579.2.462 Unknown [id number] 2.16.8 40.1.705153.3.579.2.462 Unknown [id number] 2.16.8 40.1.906277.3.579.2.462 Unknown [id number] 2.16.8 40.1.238164.3.579.2.462 Unknown [id number] 2.16.8 40.1.063518.3.579.2.462 Unknown [id number] 2.16.8 40.1.105418.3.579.2.462 Unknown [id number] 2.16.8 40.1.225655.3.579.2.462 Unknown [id number] 2.16.8 40.1.279854.3.579.2.462 Unknown [id number] 2.16.8 40.1.891975.3.579.2.462 Unknown [id number] 2.16.8 40.1.344759.3.579.2.462 Unknown [id number] 2.16.8 40.1.378055.3.579.2.462 Social History Date Type Detail Facility Start: 12-17-2016 End: 10-12-2023 Tobacco smoking status NHIS Former smoker [facility] Start: 12-17-2016 End: 10-09-2020 Cigarettes smoked current (pack per day) - Reported [facility] Work Phone: Start: 1945 Sex Assigned At Not on file [facility] Work Phone: Start: 12-17-2016 End: 10-09-2020 Tobacco use and exposure Never used [facility] Start: 12-17-2016 End: 01-10-2021 Alcohol intake Current non-drinker of alcohol (finding) [facility] Start: 03-10-2016 Tobacco Comment quit 25+ yrs [facility] Exposure to SARS-CoV -2 (event) Not sure [facility] Start: 08-01-2021 End: 12-21-2022 Tobacco smoking status NHIS Unknown if ever smoked [facility] Start: 01-12-2020 None [facility] Start: 01-12-2020 Spouse/ Signif icant Other [facility] Start: 11-18-2020 Non-smoker [facility] Start: 1945 Sex Assigned At Male W [facility] Start: 07-13-2024 End: 08-08-2024 Sex Male (finding) [facility] Medical Equipment Procedure Code Equipment Code Equipment Origin al Text Equipment Identifier Dates Stent 3.50 X 23 Xience [employer]pine Xpedition Rx - [id number] FDA Start: 01-04-2015 Drug-eluting cor onary artery stent, [id number] ajit-coated [id number] FDA Start: 08-31-2022 Femoral vessel s uture implantation set ()[id number] FDA Start: 08-31-2022 Goals Date Patient Goal Desired Activity /State Functional Status Date Assessment Result Facility 09-21-2022 Functional status Chair [facility] Work Phone: 09-20-2022 Functional status Assistive Ning lauro Rolling Walker [facility] Work Phone: 09-01-2022 Functional status Activity Ability Indepe ndent [facility] Work Phone: 08-31-2022 Functional status Ambulates [facility] Work Phone: Mental Status Date Assessment Result Facility 09-21-2022 Cognitive function Voice/Name [facility] Work Phone: 09-01-2022 Cognitive function Appropriate;Cooperativ e [facility] Work Phone: 11-16-2021 Cognitive function Voice/Name [facility] Work Phone: 06-10-2021 Cognitive function Level Of Cons ciousness Awake;Alert;Appropriate [facility] Work Phone: Clinical Notes 06-25-2020 to 07-18-2024 Note Date & Type Note Facility 07-18-2024 Procedure note [facility] 07-03-2024 Evaluation note Diagnosis Onset Date Resolution COPD (chronic obstructive pulmonary disease) chronic July 03, 2024 1:10pm Diastolic heart failure chronic [facility] 2024 1:10pm Obesity chronic July 03 1:10pm Obstructive sleep apnea chronic [facility] 2024 1:10pm COPD (chronic obstructive pulmonary disease) chronic September 20, 2024 10:13am Diastolic heart failure chronic M ay 2024 10:13am Obesity chronic September 20, 2024 10:13am Obstructive sleep apnea chronic M ay 2024 10:13am [facility] Work Phone: 1(162) 783-807603-03-2025 Evaluation note* Diagnosis Onset Date Resolution Status Admit Date COPD (chronic obstructive pulmonary disease) chronic July 03 1:10pm Diastolic heart failure chronic [facility] 2024 1:10pm Obesity chronic July 03 1:10pm Obstructive sleep apnea chronic M [facility] 2024 1:10pm COPD (chronic obstructive pulmonary disease) chronic September 20 10:13am Diastolic heart failure chronic M ay 2024 10:13am Obesity chronic September 20, 2024 10:13am Obstructive sleep apnea chronic M ay 2024 10:13am DEAN (dyspnea on exertion) acute October 25, 2024 7:54am Shortness of breath acute October 25, 2024 7:54am Bilateral lower extremity edema rehabilitation technician baylee October 25, 2024 7:54am 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, stage 3 rehabilitation technician baylee October 25, 2024 7:54am Coronary artery disease chronic J 2024 7:54am Essential hypertension chronic Ju 2024 7:54am Hyperlipidemia chronic October 25, 2024 7:54am Obesity chronic October 25 7:54am Type 2 diabetes mellitus wit hout complications chronic October 25, 2024 7:54am Chest pain inactive October 25 7:54am [facility] Work Phone: 1(497) 799-708003-03-2025 Evaluation note* Diagnosis Onset Date Resolution Status Admit Date COPD (chronic obstructive pulmonary disease) chronic July 03 1:10pm Diastolic heart failure chronic M arch 2024 1:10pm Obesity chronic July 03 1:10pm Obstructive sleep apnea chronic M arch 2024 1:10pm COPD (chronic obstructive pulmonary disease) chronic September 20 10:13am Diastolic heart failure chronic M ay 2024 10:13am Obesity chronic September 20, 2024 10:13am Obstructive sleep apnea chronic M ay 2024 10:13am Shortness of breath acute October 25, 2024 7:54am Bilateral lower extremity edema rehabilitation technician baylee October 25, 2024 7:54am Chest pain chronic October 25 7:54am 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, stage 3 rehabilitation technician baylee October 25, 2024 7:54am Coronary artery disease chronic J une 2024 7:54am Essential hypertension chronic Ju 2024 7:54am Hyperlipidemia chronic October 25, 2024 7:54am Obesity chronic October 25 7:54am Type 2 diabetes mellitus wit hout complications chronic October 25, 2024 7:54am [facility] Work Phone: 1(437) 716-555412-16-2024 Evaluation note* Diagnosis Onset Date Resolution Status Admit Date DEAN (dyspnea on exertion) acute April 17, 2024 3:51pm Bilateral lower extremity edema rehabilitation technician baylee April 17, 2024 3:51pm 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, stage 3 rehabilitation technician baylee April 17, 2024 3:51pm Coronary artery [...] sleep apnea chronic M arch 2024 1:10pm [facility] Work Phone: 1(955) 437-194711-18-2024 Evaluation note* Diagnosis Onset Date Resolution Status Admit Date Bilateral lower extremity edema rehabilitation technician baylee March 20, 2024 10:31am 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, stage 3 rehabilitation technician baylee March 20, 2024 10:31am Coronary artery disease chronic N ovember 2023 10:31am Essential hypertension chronic No vember 2023 10:31am Hyperlipidemia chronic March 032023 10:31am Obesity chronic March 20, 2024 10:31am Type 2 diabetes mellitus without complications chronic March 032023 10:31am DEAN (dyspnea on exertion) acute April 17, 2024 3:51pm Bilateral lower extremity edema 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 Hay [facility] September 01, 2022 9:55am Note Date/Time September 01, 2022 8:37am [facility] Medical Records Department [address] [place] [id number] Instructions for Home/Discharge Instructions 09/01/22 0835 MR#: [id number] Acct: [id number] Name: ERIBERTO RICO Rep #:[id number] : [...] Up Care Please Follow Up With: Jose Armando,Jose, MD When: 2-4 weeks Test Results: Test [...] CC: Dr. Marycarmen Rodriguez DO ~ Signed [facility] Work Phone: 1(758) 194-527908-26-2021 Miscellaneous Notes* Assessment & Plan Note - [...] with any necessary intervention. documented in this [id number] History of Present illness Narrative* Eladio Ingram [...] patient is not nervous/anxious. documented in this [id number] Miscellaneous Notes* Assessment & Plan Note - Fernanda Acuña, ELYSE - 10/09/2020 11:44 AM EDT Associated Problem(s): Coronary artery disease involving dry creek coronary artery of dry creek heart without angina pectoris Multiple previous cardiac catheterizations with intervention. Most recent cardiac caths were performed in 2018, August 03 at [facility], and August 18 at [facility] in [place]. 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 The notes from the cath at [facility] indicate that they were able to get [...] intolerance, and chest pressure. documented in this [id number] History of Present illness Narrative* Fernanda Acuña CNP - 10/09/2020 11:19 AM EDT [facility] [address] [facility] [address] [facility] [id number] Assessment & Plan: Hypertension Blood pressure mildly [...] without CPAP use. Coronary artery disease involving dry creek coronary artery of dry creek heart without angina pectoris Multiple previous cardiac catheterizations with intervention. Most recent cardiac caths were performed in 2018, August 03 at [facility], and August 18 at [facility] in [place]. 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 The notes from the cath at [facility] indicate that they were able to get [...] re-establish care. He has been following at [facility] and [facility] for his cardiology care over the past 4 years. 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 Eriberto has long-standing coronary artery disease and his history is primarily obtained through records from [facility]. Eriberto is uncertain of many of the dates related to multiple tests and interventions he has had in the past 3 years. Eriberto states that he has noticed an increase in exercise intolerance over the past 3-4 weeks. 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 at [facility] this weeks and became quite short of [...] Diagnosis Date Coronary artery disease Diabetes mellitus ([facility]) Diastolic CHF ([facility]) Hyperlipidemia Hypertension Lower leg edema Myocardial infarction ([facility]) 2009 Peripheral vascular disease ([facility]) Sleep apnea Stroke ([facility]) Testicle swelling Past Surgical History: Procedure Laterality Date CARDIAC CATHETERIZATION N/A 01/04/2015 Left Heart Cath,Stent, EF 60%; Eladio Ingram MD; [facility] CARDIAC CATHETERIZATION N/A 01/28/2015 Left Heart Cath, EF 60%; Eladio Ingram MD; [facility] CARDIAC CATHETERIZATION N/A 06/18/2015 Left Heart Cath, Right Upper Extremity Angiogram, EF 60%; Eladio Ingram MD; [facility] CARDIAC CATHETERIZATION N/A 03/17/2016 Procedure: Left and Right Heart Cath Poss Stent; Surgeon: Eladio Ingram MD; Location: [facility]; Service: CARDIAC CATHETERIZATION 03/22/2014 EF 60% CARDIAC CATHETERIZATION 06/29/2013 EF 60% CARDIAC CATHETERIZATION 09/08/2012 EF 55% CARDIAC CATHETERIZATION 03/22/2014 EF 60% CARDIAC CATHETERIZATION Right 10/15/2016 Procedure: Left Heart Cath Possible PTCA/Stent; Surgeon: Merritt Arthur MD; Location: [facility] CATH[facility]; Service: CHOLECYSTECTOMY CORONARY ANGIOPLASTY WITH STENT [...] ectopy, no acute changes. 50 minutes spent [id number] with patient Follow Up Ordered: Return for [...] patient is not nervous/anxious. 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[facility]) [T82.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] 08/15/2018 COPD (chronic obstructive pulmonary disease) (H*08/15/2018 SUSAN (acute kidney injury) ([facility]) [N17.9] 08/15/2018 Coronary artery disease involving [place] creek smith*08/15/2018 Stented coronary artery [Z95.5] 08/15/2018 Letter Text Encounter Status:Closed by GIANA NAVARRETEUSER on 06/28/20[facility] Evaluation note* Diagnosis Shortness of breath- [facility] Diagnosis DEAN (dyspnea on exertion)- Primary Other dyspnea and respiratory abnormality [facility] Diagnosis DEAN (dyspnea on exertion) Other dyspnea and respiratory abnormality Essential hypertension Unspecified essential hypertension Type 2 diabetes mellitus without complication, without long-term current use of insulin ([facility]) MATTHEW (obstructive sleep apnea) Obstructive sleep apnea (adult) (pediatric) Coronary artery disease involving [place] coronary artery of [place] heart without angina pectoris [facility] Diagnosis Shortness of breath [facility] Diagnosis Essential hypertension- Primary Unspecified essential hypertension 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, unspecified whether dry creek or transplanted heart ([facility]) Mixed hyperlipidemia [facility]* Diagnosis Chest pain, unspecified type- Primary [facility]* Diagnosis 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)- Primary [facility]* Diagnosis Onset Date Resolution Status Dizziness acute Atherosclerotic heart diseas e [place] coronary artery w/angina pectoris chronic CHF (congestive heart failure) chronic Essential hypertension chron ic History of coronary artery stent placement August 13, 2017 chronic Hyperlipidemia [facility] Work Phone: Evaluation note* Diagnosis Onset Date Resolution Status Dizziness acute Atherosclerotic heart diseas e [place] coronary artery w/angina pectoris chronic CHF (congestive heart failure) chronic Essential hypertension chron ic History of coronary artery stent placement August 13, 2017 chronic Hyperlipidemia chronic Dizziness acute DEAN (dyspnea on exertion) [place] Palpitations acute CAD (coronary artery disease) chronic CHF (congestive heart failure) chronic Essential hypertension chron ic Hyperlipidemia [facility] Work Phone: Evaluation note* Diagnosis Onset Date Resolution Status Dizziness acute Atherosclerotic heart diseas e [place] coronary artery w/angina pectoris chronic CHF (congestive heart failure) chronic Essential hypertension chron ic History of coronary artery stent placement August 13, 2017 chronic Hyperlipidemia chronic Dizziness acute DEAN (dyspnea on exertion) [place] Palpitations acute CAD (coronary artery disease) chronic CHF (congestive heart failure) chronic Essential hypertension chron ic Hyperlipidemia chronic DEAN (dyspnea on exertion) [place] CAD (coronary artery disease) chronic CHF (congestive heart failure) chronic Essential hypertension chron ic Hyperlipidemia [facility] Work Phone: Evaluation note* Diagnosis Onset Date Resolution Status Dizziness acute DEAN (dyspnea on exertion) [place] Palpitations acute CAD (coronary artery disease) chronic CHF (congestive heart failure) chronic Essential hypertension chron ic Hyperlipidemia chronic DEAN (dyspnea on exertion) [place] CAD (coronary artery disease) chronic CHF (congestive heart failure) chronic Essential hypertension chron ic Hyperlipidemia [facility] Work Phone: Evaluation note* Diagnosis Onset Date Resolution Status Abnormal PFT acute 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.9) rehabilitation technician [place] Obstructive sleep apnea rehabilitation technician [place] COVID-19 acute DEAN (dyspnea on exertion) [place] Atherosclerotic heart diseas e [place] coronary artery w/angina pectoris chronic CHF (congestive heart failure) chronic Essential hypertension chron ic History of coronary artery stent placement August 13, 2017 chronic Hyperlipidemia chronic Abnormal PFT acute COVID-19 acute 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.9) rehabilitation technician [place] Obstructive sleep apnea rehabilitation technician [facility] Work Phone: Evaluation note* Diagnosis Onset Date Resolution Status COVID-19 acute DEAN (dyspnea on exertion) [place] Atherosclerotic heart diseas e [place] coronary artery w/angina pectoris chronic CHF (congestive heart failure) chronic Essential hypertension chron ic History of coronary artery stent placement August 13, 2017 chronic Hyperlipidemia chronic Abnormal PFT acute COVID-19 acute 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.9) rehabilitation technician [place] Obstructive sleep apnea rehabilitation technician [facility] Work Phone: Evaluation note* Diagnosis Onset Date Resolution Status Angina pectoris chronic 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 chron ic Coronary artery disease rehabilitation technician [place] Diabetes mellitus chronic Dyslipidemia chronic Essential hypertension chron ic Obesity chronic [facility] Work Phone: Evaluation note* Diagnosis Onset Date Resolution Status Angina pectoris chronic 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 chron ic Coronary artery disease rehabilitation technician [place] Diabetes mellitus chronic Dyslipidemia chronic Essential hypertension chron ic Obesity chronic Left-sided weakness acute Chest pain resolved Fatigue acute Syncope acute Coronary artery disease rehabilitation technician [place] Dyslipidemia chronic Essential hypertension chron [facility] Work Phone: Evaluation note* Diagnosis Onset Date Resolution Status Left-sided weakness acute Chest pain resolved Fatigue acute Syncope acute Coronary artery disease rehabilitation technician [place] Dyslipidemia chronic Essential hypertension chron ic Angina pectoris chronic Bilateral lower extremity edema chronic 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, stage 3 chronic Coronary artery disease rehabilitation technician [place] Essential hypertension chron ic Hyperlipidemia chronic Type 2 diabetes mellitus without complications [facility] Work Phone: Evaluation noteNo assessment information available [facility] Work Phone: Progress note Author Dr. Hay [facility] September 01, 2022 9:53am Note Date/Time September 01, 2022 9:51am [facility] Medical Records Department [address] [place] [address] Progress Note 09/01/22 0950 MR#: [id number] Acct: [id number] Name: ERIBERTO RICO Rep #:[id number] : 1945 77 From: Jose Hay MD PCP: Dr. Marycarmen Rodriguez, DO Status:ADM EDMUND Location: [place] [address] Progress Note Reports complete resolution of angina. Denies any complaints today. Right groin stable. No hematoma or bruit. Right radial pulse 2+. Mildly decreased platelet count noted. Repeat CBC in 2 days. Also repeat complete metabolic panel in 2 days. Discharge home. Follow-up as outpatient. 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 Advance Directives and Living Will [...] Documents on File Type Date Recorded 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 Expl anation Advance Directives and Livin g Will 10/04/2020 12:00 AM Documents on File Type Date Recorded 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 Expl anation Advance Directives and Living Will [...] Documents on File Type Date Recorded 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 Expl 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 Advance Directives and Livin g Will 10/15/2020 12:46 PM Documents on File Type Date Recorded 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 Expl anation Advance Directives and Livin g Will 10/15/2020 12:46 PM Documents on File Type Date Recorded 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 Expl anation Advance Directives and Livin g [...] 13, 2 018 7:02am Living Will Yes June 10 4:44pm Power of Upper Leather Sorter Yes June 10, 2021 4:44pm Advance Directive Response Recorded Date/ Time Name of Medical Power of Upper Leather Sorter Jennie- November 16, 2021 1:06pm Advance Directives No August 13, 2 018 7:02am Living Will Yes November 16, 2021 1:06pm Power of Upper Leather Sorter Yes November 16 1:06pm Advance Directive Response Recorded Date/ Time Advance Directives No August 13, 2 018 6:02am Living Will Yes November 16, 2021 12:06pm Power of Upper Leather Sorter Yes November 16 12:06pm Advance Directive Response Recorded Date/ Time Advance Directives No August 13, 2 018 7:02am Living Will Yes November 16, 2021 1:06pm Power of Upper Leather Sorter Yes November 16 1:06pm Advance Directive Response Recorded Date/ Time Advance Directives on File Yes August 312022 7:47am Name of Medical Power of Upper Leather Sorter Mike Rico- son August 31, 2022 7:47am Advance Directives Yes August 31, 2022 7:47am Living Will Yes August 31, 2022 7: 47am Power of Upper Leather Sorter Yes August 31, 2022 7:47am Advance Directive Response Recorded Date/ Time Advance Directives on File Yes August 312022 7:47am Name of Medical Power of Upper Leather Sorter Mike Rico- son August 31, 2022 7:47am Advance Directives Yes August 31, 2022 7:47am Living Will No September 18, 2022 1 2:11am Power of Upper Leather Sorter No September 18, 2022 12:11am Advance Directive Response Recorded Date/ Time Advance Directives on File Yes August 312022 7:47am Name of Medical Power of Upper Leather Sorter Mike Rico- son August 31, 2022 7:47am Advance Directives on File No Augus t 2022 7:51am Name of Medical Power of Upper Leather Sorter MIKE RICO December 21, 2022 7:51am Advance Directives Yes December 21, 2022 7:51am Living Will Yes December 21 7:51am Power of Upper Leather Sorter Yes December 21 2 023 7:51am Advance Directive Response Recorded Date/ Time Advance Directives on File No Augus t 2022 7:51am Name of Medical Power of Upper Leather Sorter MIKE RICO December 21, 2022 7:51am Advance Directives Yes December 21, 2022 7:51am Living Will Yes December 21 7:51am Power of Upper Leather Sorter Yes December 21 2 023 7:51am Advance Directive Response Recorded Date/ Time Advance Directives Yes December 21, 2022 6:51am Living Will Yes December 21 6:51am Power of Upper Leather Sorter Yes December 21 023 6:51am Advance Directive Response Recorded Date/ Time Living Will No October 12, 2023 6:54pm Power of Upper Leather Sorter No October 11 6:54pm Advance Directives Yes December 21, 2022 7:51am Advance Directive Response Recorded Date/ Time Advance Directives Yes December 21, 2022 7:51am Reason for Referral Status Reason Specialty Diagnoses / Procedures Referred By Contact Referred To Contact New Request Cardiology Diagnoses Shortness of breath Procedures Echocardiogram complete Eladio Ingram MD [address] [facility] [address] [place] [address] Status Reason Specialty Diagnoses / Procedures Referred By Contact Referred To Contact Closed Cardiology Diagnoses DEAN (dyspnea on exertion) Procedures ECG 12 lead Fernanda Acuña, HARNESS CLEANER [address] [place] [address] Specialty Diagnoses / Procedures Referred By Contac t Referred To Contact Radiology Diagnoses 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) Procedures CT Angiogram Aorta Chest Abdomen Pelvis Eladio Ingram MD [address] [place] [address] Referral ID Status Reason Start Date Expiration Date V isits Requested Visits Authorized [id number] New Request 01/10/2021 01/10/2022 1 1 Chief Complaint and Reason for Visit Chief Complaint R. LOWER LID LESION RLQ ABD PAIN bleeding from ear, chest pain OVERDUE FOR OV CHEST PAIN CHEST PAIN Reason for Visit Dizziness Atherosclerotic heart disease [place] coronary artery w/angina pectoris CHF (congestive heart failure) Essential hypertension History of coronary artery stent placement Hyperlipidemia Chief Complaint bleeding from ear, c hest pain OVERDUE FOR OV CHEST PAIN CHEST PAIN 6-8 WK F/U DYSPNEA Reason for Visit Dizziness Atherosclerotic heart disease [place] coronary artery w/angina pectoris CHF (congestive heart failure) Essential hypertension History of coronary artery stent placement Hyperlipidemia Dizziness DEAN (dyspnea on exertion) Palpitations CAD (coronary artery disease) CHF (congestive heart failure) Essential hypertension Hyperlipidemia Chief Complaint OVERDUE FOR OV CHEST PAIN CHEST PAIN 6-8 WK F/U DYSPNEA Reason for Visit Dizziness Atherosclerotic heart disease [place] coronary artery w/angina pectoris CHF (congestive heart failure) Essential hypertension History of coronary artery stent placement Hyperlipidemia Dizziness DEAN (dyspnea on exertion) Palpitations CAD (coronary artery disease) CHF (congestive heart failure) Essential hypertension Hyperlipidemia Chief Complaint OVERDUE FOR OV CHEST PAIN CHEST PAIN 6-8 WK F/U DYSPNEA CHEST PAIN 2 M FU E ORDERS Reason for Visit Dizziness Atherosclerotic heart disease [place] coronary artery w/angina pectoris CHF (congestive heart [...] DEAN (dyspnea on exertion) Atherosclerotic heart disease [place] coronary artery w/angina pectoris CHF (congestive heart failure) Essential hypertension History of coronary artery stent placement Hyperlipidemia Abnormal PFT COVID-19 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.9) Obstructive sleep apnea Chief Complaint SORE THROAT, COUGH, FEVER, BODY ACHE 5 MO F/U 3 M FU DYSPNEA/SOB Reason for Visit COVID-19 DEAN (dyspnea on exertion) Atherosclerotic heart disease [place] coronary artery w/angina pectoris CHF (congestive heart [...] CP CVA, CP CVA, CP request by IT PROFESSIONAL at [place] for angina L.L. E-ORDER SYNCOPE Reason for Visit Angina pectoris 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 Coronary artery disease Diabetes mellitus Dyslipidemia Essential hypertension Obesity Left-sided weakness Chest pain Fatigue Syncope Coronary artery disease Dyslipidemia Essential hypertension Chief Complaint CAD Amb Documentation EKG Coronary artery disease Amb Documentation CVA, CP CVA, CP CP ADMIT CVA, CP CVA, CP CVA, CP CVA, CP request by IT PROFESSIONAL at [place] for angina L.L. E-ORDER SYNCOPE 2 M [...] CP CVA, CP CVA, CP request by IT PROFESSIONAL at [place] for angina L.L. E-ORDER SYNCOPE 2 M [...] FU April 17, 2024 3:51pm F/U per [facility] July 03, 2024 1:10 pm MATTHEW, 42 [...] 2024 3:51pm Coronary artery disease April 17, 024 3:51pm Essential hypertension April 17 3:51pm [...] TRIAL FFM September 22, 2024 11:00 am Chief Complaint Admit Date F/U per [facility] July 03, 2024 1:10 pm MATTHEW, 42 pound weight gain July 07 7:46pm MATTHEW July 17, 2024 10: 31am MATTHEW July 17, 2024 10: 45am R06.00 - Dyspnea, unspecified July 6:23am R06.00 - Dyspnea, unspecified July 10:32am MATTHEW August 03, 2024 11:4 2am 3 M FU September 20, 2024 10:13 am INT LAB ORDERS September 20, 2024 11:56 am TRIAL FFM September 22, 2024 11:00 am MATTHEW October 18, 2024 1:18 pm Chief Complaint Admit Date F/U per [facility] July 03, 2024 1:10 pm MATTHEW, 42 pound weight gain July 07 7:46pm MATTHEW July 17, 2024 10: 31am MATTHEW July 17, 2024 10: 45am R06.00 - Dyspnea, unspecified July 6:23am R06.00 - Dyspnea, unspecified July 10:32am MATTHEW August 03, 2024 11:4 2am 3 M FU September 20, 2024 10:13 am INT LAB ORDERS September 20, 2024 11:56 am TRIAL FFM September 22, 2024 11:00 am MATTHEW October 18, 2024 1:18 pm Shortness of breath October 25, 2024 7:54 am Reason for Visit Admit Date COPD [...] sleep apnea September 20, 2024 1 0:13am DEAN (dyspnea on exertion) October 25 7:54am Shortness of breath October 25, 2024 7:54 am Bilateral lower extremity edema October 7:54am 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, stage 3 October 7:54am Coronary artery disease October 25, 2024 7:54am Essential hypertension October 25, 2024 7 :54am Hyperlipidemia October 25, 2024 7:54 am Obesity October 25, 2024 7:54 am Type 2 diabetes mellitus without complic ations October 25, 2024 7:54am Chest pain October 25, 2024 7:54 am Reason for Visit Admit Date COPD [...] sleep apnea September 20, 2024 1 0:13am Shortness of breath October 25, 2024 7:54 am Bilateral lower extremity edema October 7:54am Chest pain October 25, 2024 7:54 am 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, stage 3 October 7:54am Coronary artery disease October 25, 2024 7:54am Essential hypertension October 25, 2024 7 :54am Hyperlipidemia October 25, 2024 7:54 am Obesity October 25, 2024 7:54 am Type 2 diabetes mellitus without complic ations October 25, 2024 7:54am Additional Source Comments (unrecognized sect ion and content) No Status Records FoundNo Status Records FoundNo Status Records FoundNo Status Records FoundNo Status Records FoundNo Status Records FoundNo Status Records Found INFORMATION SOURCE (unrecogn ized section and content) DATE CREATED AUTHOR 09/24/2018 [facility] DATE CREATED AUTHOR AUTHOR'S ORGANIZ ATION 12/20/2020 [facility] DATE CREATED AUTHOR AUTHOR'S ORGANIZ ATION 01/11/2021 [facility] DATE CREATED AUTHOR AUTHOR'S ORGANIZ ATION 02/28/2021 [facility] DATE CREATED AUTHOR AUTHOR'S ORGANIZ ATION 04/20/2021 [facility] DATE CREATED AUTHOR AUTHOR'S ORGANIZ ATION 06/22/2021 [facility] DATE CREATED AUTHOR AUTHOR'S ORGANIZ ATION 10/25/2024 [facility] Reason for Visit (unrecogniz ed section and content) Reason Comments Chest Pain SOB Status Reason Specialty Diagnoses / Procedures Referred By Contact Referred To Contact Closed Cardiology Diagnoses DEAN (dyspnea on exertion) Procedures ECG 12 lead Fernanda Acuña, HARNESS CLE[employer] [address] [place] [address] Status Reason Specialty Diagnoses / Procedures Referre d By Contact Referred To Contact Closed Cardiology Diagnoses Shortness of breath Procedures Echocardiogram complete w contrast Echocardiogram complete Eladio Ingram MD [address] [facility] [address] [place] [address] Reason Comments Initial Visit (Intake) Specialty Diagnoses / Procedures Referred By Contac t Referred To Contact Cardiology Diagnoses 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, unspecified whether [place] or transplanted heart (HCC) Marycarmen Rodriguez, [address] [place] [address] Referral ID Status Reason Start Date Expiration Date V isits Requested Visits Authorized [id number] Closed Specialty Services Required/Krupa ent's Best Interest 10/04/2020 10/04/2021 1 1 Care Teams (unrecognized sec tion and content) Ppa Teacher Relationship Specialty Start Date End Date Marycarmen Rodriguez Christy, [address] [place] [address] PCP - General Family Medicine 12/17/16 Ppa Teacher Relationship Specialty Start Date End Date Marycarmen Rodriguez Christy, DO [address] [place] [address] PCP - General Family Medicine 12/17/16 Ppa Teacher Relationship Specialty Start Date End Date JenniferMarycarmen, [address] [place] [address] PCP - General Family Medicine 12/17/16 Ppa Teacher Relationship Specialty Start Date End Date Marycarmen Rodriguez, [facility] [place] [address] PCP - General Family Medicine 12/17/16 Team Status: Active Member Role Status Dates Dr. Marycarmen Rodriguez DO Family Provider Active Marycarmen Rodriguez Primary Care Provider Active Team Status: Inactive Member Role Status Dates Dr. Marycarmen Rodriguez DO Primary Care Provider, Referrin g Provider Active Luz Elena Mckeon IT PROFESSIONAL, IT PROFESSIONAL-C Attending Provider Active Team Status: Inactive Member Role Status Dates Dr. Marycarmen Rodriguez DO Primary Care Provider Active Dr. Merritt Persaud MD Attending Provider, Referring Pr ovider Active Team Status: Inactive Member Role Status Dates Dr. Marycarmen Rodriguez DO Primary Care Provider, Referrin g Provider Active Can Avalos PA, PA Attending Provider Active Team Status: Active Member Role Status Dates Dr. Marycarmen Rodriguez DO Primary Care Provider Active Dr. John Palacios MD Attending Provider Active Team Status: Inactive Member Role Status Dates Dr. Marycarmen Rodriguez DO Primary Care Provider Active Luz Elena Mckeon IT PROFESSIONAL, IT PROFESSIONAL-C Attending Provider Active Team Status: Inactive Member Role Status Dates Dr. Marycarmen Rodriguez DO Primary Care Provider Active Luz Elena Mckeon IT PROFESSIONAL, IT PROFESSIONAL-C Attending Provider, Referring P sharon Active Team [...] Primary Care Provider Active Luz Elena Mckeon IT PROFESSIONAL, IT PROFESSIONAL-C Attending Provider, Referring P deanader Active Team Status: Inactive Member Role Status [...] Primary Care Provider Active Luz Elena Mckeon IT PROFESSIONAL, IT PROFESSIONAL-C Attending Provider Active Team Status: Inactive Member [...] 2024 End: April 17, 2024 Gustabo Pérez IT PROFESSIONAL, IT PROFESSIONAL-C Attending Provider Active S tart: April 17, 2024 End: April 17, 2024 Team Status: Inactive Member Role Status Dates Dr. Marycarmen Rodriguez DO Primary Care Provider Active Start: April 17, 2024 End: April 17, 2024 Gustabo Pérez IT PROFESSIONAL, IT PROFESSIONAL-C Attending Provider Active S tart: April 17, 2024 End: April 17, 2024 Gustabo Pérez IT PROFESSIONAL, IT PROFESSIONAL-C Referring Provider Active S tart: April 17, [...] 2024 End: July 03, 2024 Marni Horn IT PROFESSIONAL, IT PROFESSIONAL-C Attending Provider Active Start: July 03, 2024 End: July 03, 2024 Team Status: Active Member Role Status Dates Dr. Marycarmen Rodriguez DO Primary Care Provider Active Start: July 07, 2024 Marni Horn IT PROFESSIONAL, IT PROFESSIONAL-C Attending Provider Active Start: July 07, 2024 Marni Horn IT PROFESSIONAL, IT PROFESSIONAL-C Referring Provider Active Start: July 07, 2024 Team Status: Inactive Member Role Status Dates Dr. Marycarmen Rodriguez DO Primary Care Provider Active Start: July 07, 2024 End: July 07, 2024 Marni Horn IT PROFESSIONAL, IT PROFESSIONAL-C Attending Provider Active Start: July 07, 2024 End: July 07, 2024 Marni Horn IT PROFESSIONAL, IT PROFESSIONAL-C Referring Provider Active Start: July 07, 2024 End: July 07, 2024 Team Status: Active Member Role Status Dates Dr. Marycarmen Rodriguez DO Primary Care Provider Active Start: July 17, 2024 Marni Horn IT PROFESSIONAL, IT PROFESSIONAL-C Attending Provider Active Start: July 17, 2024 Marni Horn IT PROFESSIONAL, IT PROFESSIONAL-C Referring Provider Active Start: July 17, 2024 Team Status: Active Member Role Status Dates Dr. Marycarmen Rodriguez DO Primary Care Provider Active Start: July 18, 2024 Marni Horn IT PROFESSIONAL, IT PROFESSIONAL-C Attending Provider Active Start: July 18, 2024 Marni Horn IT PROFESSIONAL, IT PROFESSIONAL-C Referring Provider Active Start: July 18, 2024 Team Status: Active Member Role Status Dates Dr. Marycarmen Rodriguez DO Primary Care Provider Active Start: July 18, 2024 Marni Horn IT PROFESSIONAL, IT PROFESSIONAL-C Referring Provider Active Start: July 18, 2024 Marni Horn IT PROFESSIONAL, IT PROFESSIONAL-C Other Provider Active Start: July 18, 2024 Dr. Zen East DO Attending Provider Active S tart: July 18, 2024 Team Status: Inactive Member Role Status Dates Dr. Marycarmen Rodriguez DO Primary Care Provider Active Start: July 17, 2024 End: July 17, 2024 Marni Horn IT PROFESSIONAL, IT PROFESSIONAL-C Attending Provider Active Start: July 17, 2024 End: July 17, 2024 Marni Horn IT PROFESSIONAL, IT PROFESSIONAL-C Referring Provider Active Start: July 17, 2024 End: July 17, 2024 Team Status: Inactive Member Role Status Dates Dr. Marycarmen Rodriguez DO Primary Care Provider Active Start: July 18, 2024 End: July 18, 2024 Marni Horn IT PROFESSIONAL, IT PROFESSIONAL-C Attending Provider Active Start: July 18, 2024 End: July 18, 2024 Marni Horn IT PROFESSIONAL, IT PROFESSIONAL-C Referring Provider Active Start: July 18, 2024 End: July 18, 2024 Team Status: Inactive Member Role Status Dates Dr. Marycarmen Rodriguez DO Primary Care Provider Active Start: August 03, 2024 End: August 03, 2024 Marni Horn IT PROFESSIONAL, IT PROFESSIONAL-C Attending Provider Active Start: August 03, 2024 End: August 03, 2024 Marni Horn IT PROFESSIONAL, IT PROFESSIONAL-C Referring Provider Active Start: August 03, 2024 End: August 03, 2024 Team Status: Inactive Member Role Status Dates Dr. Marycarmen Rodriguez DO Primary Care Provider Active Start: September 20, 2024 End: September 20, 2024 Dr. Marycarmen Rodriguez DO Referring Provider Active Start: September 20, 2024 End: September 20, 2024 Maren Olivas IT PROFESSIONAL-C Attending Provider Active Start: September 20, 2024 End: September 20, 2024 Team Status: Inactive Member Role Status Dates Dr. Marycarmen Rodriguez DO Primary Care Provider Active Start: September 20, 2024 End: September 20, 2024 Maren Olivas IT PROFESSIONAL-C Attending Provider Active Start: September 20, 2024 End: September 20, 2024 Maren Olivas IT PROFESSIONAL-C Referring Provider Active Start: September 20, 2024 End: September 20, 2024 Team Status: Active Member Role Status Dates Dr. Marycarmen Rodriguez DO Primary Care Provider Active Start: September 22, 2024 Marni Horn NP, IT PROFESSIONAL-C Attending Provider Active Start: September 22, 2024 Team Status: Inactive Member Role Status Dates Dr. Marycarmen Rodriguez DO Primary Care Provider Active Start: September 22, 2024 End: September 22, 2024 Marni Horn NP, IT PROFESSIONAL-C Attending Provider Active Start: September 22, 2024 End: September 22, 2024 Team Status: Inactive Member Role Status Dates Dr. Marycarmen oRdriguez DO Primary Care Provider Active Start: September 29, 2024 End: September 29, 2024 Dr. Marycarmen Rodriguez DO Attending Provider Active Start: September 29, 2024 End: September 29, 2024 Dr. Marycarmen Rodriguez DO Referring Provider Active Start: September 29, 2024 End: September 29, 2024 Team Status: Active Member Role Status Dates Dr. Marycarmen Rodriguez DO Primary Care Provider Active Start: July 17, 2024 Dr. Zen East DO Attending Provider Active S tart: July 17, 2024 Marni Horn IT PROFESSIONAL, IT PROFESSIONAL-C Referring Provider Active Start: July 17, 2024 Team Status: Inactive Member Role Status Dates Dr. Marycarmen Rodriguez DO Primary Care Provider Active Start: October 18, 2024 End: October 18, 2024 Dr. Brooks Carpenter MD Attending Provider Active Start: October 18, 2024 End: October 18, 2024 Dr. Brooks Carpenter MD Referring Provider Active Start: October 18, 2024 End: October 18, 2024 Gustabo Pérez NP, IT PROFESSIONAL-C Other Provider Active Start : October 18, 2024 End: October 18, 2024 Team Status: Active Member Role Status Dates Dr. Marycarmen Rodriguez DO Primary Care Provider Active Start: October 18, 2024 Marni Horn NP, IT PROFESSIONAL-C Attending Provider Active Start: October 18, 2024 Team Status: Inactive Member Role Status Dates Dr. Marycarmen Rodriguez DO Primary Care Provider Active Start: October 25, 2024 End: October 25, 2024 Dr. Marycarmen Rodriguez DO Referring Provider Active Start: October 25, 2024 End: October 25, 2024 Gustabo Pérez NP, IT PROFESSIONAL-C Attending Provider Active S tart: October 25, 2024 End: October 25, 2024 Team Status: Inactive Member Role Status Dates Dr. Marycarmen Rodriguez DO Primary Care Provider Active Start: October 18, 2024 End: October 18, 2024 Marni Horn NP, IT PROFESSIONAL-C Attending Provider Active Start: October 18, 2024 End: October 18, 2024 Goals (unrecognized section and content) Goals [...] BE BASED ON THE PRIMARY CLINICAL RECORDS. [employer] [facility]. provides no warranty or guarantee of the accuracy or completeness of information in this document.
== END | disposition home or self-care (01) ==
LOC: SL 11:53
PROVIDERS: PCP Family Medicine; Referring Provider Nurse Practitioner Acute Care; Visit Provider Nurse Practitioner Acute Care
DX: Z46.89 Encounter for fitting and adjustment of other specified devices (principal)

== ENCOUNTER → 2024-11-09 | Outpatient (CLI) | payer MEDICARE, OTHER, SELFPAY ==
[2018-08-03 13:04] VITALS: BMI 19.8
[2024-11-09 12:07] LABS: Hematocrit 38.2 % (40-54); Hemoglobin 12.2 g/dL (13.0-16.5); Immature Granulocytes Count 0.030 X10^3/uL (0.0-0.0); Mean Corp Hgb Conc 31.9 g/dL (32-36); Mean Corpuscular Volume 92.7 fL (80-94); Mean Platelet Vol. 12.7 fl (6.2-12.0); NRBC Flagged by Analyzer 0 % (0-5); Platelet Count 120 K/mm3 (150-450); RBC Distribution Width CV 14.1 % (11.6-14.6); RBC Distribution Width SD 47.8 fl (35.1-43.9); Red Blood Count 4.12 M/mm3 (4.6-6.2); White Blood Count 6.2 K/mm3 (4.4-11.0)
[2024-11-09 12:45] LABS: Anion Gap 14 (5-15); BUN 49 mg/dL (4-19); BUN/Creat Ratio 19.7 RATIO (10-20); Calcium,Total 9.3 mg/dL (7.6-11.0); Carbon Dioxide 22.5 mmol/L (21.0-32.0); Chloride 102 mmol/L (98-108); Glucose 169 mg/dL (70-99); Potassium 4.6 mmol/L (3.3-5.1); Pro- Brain NATRIURETIC PEPTIDE 91 pg/mL (<=1800)
== END | disposition home or self-care (01) ==
LOC: BFHLAB 10:46
PROVIDERS: PCP Family Medicine; Visit Provider Family Medicine
DX: N18.32 Chronic kidney disease, stage 3b (principal); I50.9 Heart failure, unspecified; D64.9 Anemia, unspecified
CPT/HCPCS: 36415; 80048; 83880; 85025

== ENCOUNTER → 2024-11-10 | Outpatient (CLI) | payer MEDICARE, OTHER, SELFPAY ==
[2018-08-03 13:04] VITALS: BMI 19.8
== END | disposition home or self-care (01) ==
LOC: SL 19:54
PROVIDERS: PCP Family Medicine; Referring Provider Nurse Practitioner Family; Visit Provider Nurse Practitioner Family
DX: G47.31 Primary central sleep apnea (principal)
CPT/HCPCS: 95811

== ENCOUNTER → 2024-11-10 | Outpatient (CLI) | payer MEDICARE, OTHER, SELFPAY ==
[2018-08-03 13:04] VITALS: BMI 19.8
--- OUTSIDE RECORDS SUMMARY | 2024-11-10 06:57 | XMS RPT_ITS | CCD ---
Author Organization [facility] Care Team Providers Care Corporate Treasury Analyst Name Role Phone Unavailable Unavailable Unavailable Marycarmen Rodriguez DO Primary Care Provider Marycarmen Rodriguez DO Primary Care Provider [phone] MIN HOWARD Referring Unavailable MARYCARMEN RODRIGUEZ Primary [...] Primary Care Unavailable MARYCARMEN RODRIGUEZ Admitting Unavailable DAVAKISELADIO Attending Unavaila ble JENNIFERMARYCARMEN SHETTY Referring Unavailable MARYCARMEN RODRIGUEZ Primary Care Unavailable SHIRA, ELADIO ALLEN Attending Unavaila ble MARYCARMEN RODRIGUEZ Primary Care Unavailable Dr. Marycarmen Rordiguez Primary Care Provider [phone] Marycarmen Rodriguez Referring Provider [phone] Mike PEREA, HOOKER OPERATOR-C Luz Elena Attending Provider Dr. Darnell Corral Attending Provider Mike HOOKER OPERATOR, HOOKER OPERATOR-C Luz Elena Referring Provider Mike HOOKER OPERATOR, HOOKER OPERATOR-C Luz Elena Other Provider Dr. John Palacios Attending Provider Mike HOOKER OPERATOR, HOOKER OPERATOR-C Luz Elena Referring Provider Dr. Marycarmen Rodriguez Primary Care Provider [phone] Dr. Marycarmen Rodriguez Referring Provider Mike HOOKER OPERATOR, ELIAZAR-C Luz Elena Attending Provider Dr. [...] Provider Unavailable Dr. Pardeep Hall Emergency Provider [phone] Dr. Alka Leo Admit Provider [phone] Dr. Alka Leo Attending Provider Dr. Alka Leo Other Provider Dr. Shaan Santos Attending Provider Dr. Shaan Santos Other Provider Dr. Aimee Cummins Attending Provider Mike HOOKER OPERATOR, HOOKER OPERATOR-C Luz Elena Attending Provider Adina Vallejo [...] Dr. Marycarmen Rodriguez DO Attending Provider Beto HOOKER OPERATOR-C, Gustabo H Attending Provider Roof HOOKER OPERATOR-C, Gustabo H Referring Provider Justina HOOKER OPERATOR-CMarni Attending Provider Justina HOOKER OPERATOR-CMarni Referring Provider Dr. Marycarmen Rodriguez DO Primary Care Provider Dr. Marycarmen Rodriguez DO Referring Provider Dr. Jose Hay MD Attending Provider Justina HOOKER OPERATOR-CMarni Other Provider Dr. Zen East DO Attending Provider Dr. Marycarmen Rodriguez DO Primary Care Provider Dr. Marycarmen Rodriguez DO Referring Provider Dr. Marycarmen Rodriguez DO Attending Provider Jennifer CATHERINE, Dr. Dow Primary Care Provider Jennifer CATHERINE, Dr. Dow Referring Provider Brendon HOOKER OPERATOR-C, Maren Clarke Attending Provider Brendon HOOKER OPERATOR-C, Maren Clarke Referring Provider Dr. Zen East DO Attending Provider Pauline PALOMO, Dr. Guy Attending Provider Pauline PALOMO, Dr. Guy Referring Provider Roof HOOKER OPERATOR-C, Gustabo H Other Provider Roof HOOKER OPERATOR-C, Gustabo H Attending Provider Jennifer CATHERINE, Dr. Dow Primary Care Provider Jennifer CATHERINE, Dr. Dow Attending Provider Jennifer, Marycarmen Referring Unavailable Jennifer, Marycarmen Primary Care Unavailable Horn HOOKER OPERATOR, Marni Attending Unavailable Jennifer, Marycarmen Primary Care Unavailable Jennifer, Marycarmen Referring Unavailable Roof HOOKER OPERATOR, Gustabo Gao Attending Unavailable Jennifer, Marycarmen Primary Care Unavailable Jennifer, Marycarmen Referring Unavailable Maren Olivas Attending Unavailable Jennifer, Marycarmen Primary Care Unavailable Horn HOOKER OPERATOR, Marni Referring Unavailable Zen East Attending Unavailable Jennifer, Marycarmen Primary Care Unavailable Horn HOOKER OPERATOR, Marni Attending Unavailable Horn HOOKER OPERATOR, Marni Referring Unavailable Jennifer, Marycarmen Primary Care Unavailable Horn HOOKER OPERATOR, Marni Attending Unavailable Jennifer, Marycarmen Primary Care Unavailable Horn HOOKER OPERATOR, Marni Attending Unavailable Jennifer, Marycarmen Primary Care Unavailable Jennifer, Marycarmen Referring Unavailable Jose Armando, Jose Attending Unavailable Jennifer, Marycarmen Referring Unavailable Jose Armando, Jose Attending Unavailable Jennifer, Marycarmen Primary Care Unavailable Jennifer, Marycarmen Primary Care Unavailable Horn HOOKER OPERATOR, Marni Consulting Unavailable Horn HOOKER OPERATOR, Marni Referring Unavailable Zen East Attending Unavailable Maren Olivas Attending Unavailable Jennifer, Marycarmen Primary Care Unavailable Jennifer, Marycarmen Referring Unavailable Jennifer, Marycarmen Primary Care Unavailable Jennifer, Marycarmen Referring Unavailable Jennifer, Marycarmen Attending Unavailable Jennifer, Marycarmen Primary Care Unavailable Horn HOOKER OPERATOR, Marni Attending Unavailable Horn HOOKER OPERATOR, Marni Referring Unavailable Marycarmen Rodriguez Primary Care Unavailable Horn HOOKER OPERATOR, Marni Referring Unavailable Horn HOOKER OPERATOR, Marni Attending Unavailable Marycarmen Rodriguez Primary Care Unavailable Roof HOOKER OPERATOR, Gustabo Gao Referring Unavailable Roof HOOKER OPERATOR, Gustabo Gao Attending Unavailable Marycarmen Rodriguez Primary Care Unavailable Maren Olivas Referring Unavailable Maren Olivas Attending Unavailable Marycarmen Rodrgiuez Primary Care Unavailable Brooks Carpenter Referring Unavailable Brooks Carpenter Attending Unavailable Roof HOOKER OPERATOR, Gustabo Gao Consulting Unavailable Roof HOOKER OPERATOR, Gustabo Gao Referring Unavailable Roof HOOKER OPERATOR, Gustabo Gao Attending Unavailable Marycarmen Rodriguez Primary Care Unavailable JenniferMarycarmen shetty Attending Unavailable Marycarmen Rodriguez Primary Care Unavailable Maren Olivas Referring Unavailable Maren Olivas Attending Unavailable Marycarmen Rodriguez Primary Care Unavailable JenniferMarycarmen shetty Attending Unavailable Jennifer, Marycarmen Primary Care Unavailable Jennifer, Marycarmen Referring Unavailable Jennifer, Marycarmen Primary Care Unavailable Horn HOOKER OPERATOR, Marni Referring Unavailable Horn HOOKER OPERATOR, Marni Attending Unavailable Marycarmen Rodriguez Primary Care Unavailable Horn HOOKER OPERATOR, Marni Referring Unavailable Horn HOOKER OPERATOR, Marni Attending Unavailable Marycarmen Rodriguze Attending Unavailable JenniferMarycarmen shetty Primary Care Unavailable JenniferMarycarmen Referring Unavailable Roof HOOKER OPERATOR, Gustabo Gao Attending Unavailable Marycarmen Rodriguez Primary Care Unavailable Medications Current Medications Medication Drug Class(es) Dates Sig (Normalized) Sig (Original) acetaminophen 325 mg oral tablet (20 sources) Start: 01-03-2020 End: 10-12-2023 take 2 tablets by mouth every six hours as needed for pain Acetaminophen 325 MG tablet Active 650 mg PO EVERY 6 HOURS as needed for Pain October 12, 2023 12:00am Start: 01-03-2020 take 650 mg by mouth every six hours as needed Acetaminophen Active 650 MG PO EVERY 6 HOURS NEEDED January 02, 2020 11:00pm acetaminophen 325 mg / HYDROcodone bitartrate 5 mg oral tablet (14 sources) Opioid Agonist Start: 04-17-2024 Hydrocodone-Acetaminophen 5-325 mg tablet Active 1 {tbl} PO TWICE A DAY as needed April 17, 2024 1:00am [id number] 200 actuat albuterol 0.09 mg/actuat metered dose inhaler (9 sources) beta2-Adrenergic Agonist Start: 09-20-2024 Albuterol Sulfate 90 mcg/actuation HFA aerosol inhaler Active 2 NMA INHALATION EVERY 4-6 HOURS as needed for shortness of breath or wheezing 8.5 3 September 20, 2024 12:00am aspirin 81 mg delayed release oral tablet (20 sources) Platelet Aggregation Inhibitor, Nonsteroidal Anti-inflammator y Drug Start: 01-21-2017 take 1 tablet by mouth once daily Aspirin 81 MG tablet Active 81 mg PO DAILY@0800 January 21, 2017 12:00am health maintenance cetirizine hydrochloride 10 mg oral tablet (20 [...] 02, 2018 12:00am August 26, 2018 1:43pm SUPPLEMENT Start: 01-21-2017 End: 01-19-2018 take 2 capsules [...] Active 80 mg PO DAILY 180 90 0 September 16, 2021 10:42am DEPRESSION Start: 09-16-2021 take 80 mg by mouth once daily Fluoxetine Active 80 MG PO DAILY 180 90 September 16, 2021 9:42am Start: 09-21-2018 End: 09-16-2021 take 1 capsule by mouth once daily Fluoxetine 40 mg capsule Discontinued 40 mg PO DAILY 90 90 0 September 21, 2018 12:00am September 16, 2021 10:49am DEPRESSION take 1 capsule by [facility] twice daily FLUoxetine (PROZAC) 40 MG capsule Take 40 mg by mouth 2 (two) times a day . 0 Active Fluticasone Furoate (9 sources) Corticosteroid Start: 09-20-2024 take 200 ug by inhalation every twenty-four hours Fluticasone Furoate (Arnuity Ellipta) 200 mcg/actuation blister with device Active 1 NMA INHALATION Q24H 30 07September 20, 2024 12:00am Start: 09-20-2024 take 200 ug by inhal ation every twenty-four hours Fluticasone Furoate (Arnuity Ellipta) [...] 12, 2020 3:31pm September 16, 2021 10:44am DM Start: 12-20-2019 End: 08-12-2020 take 1 tablet by mouth once daily Glimepiride 2 MG tablet Discontinued 2 mg PO DAILY December 20, 2019 12:00am August 12, 2020 3:32pm DM Start: 03-04-2016 End: 09-01-2018 take 1 tablet by mouth once daily Glimepiride 1 MG tablet Discontinued 1 mg PO DAILY April 12, 2018 1:00am September 01, 2018 9:30am diabetes 24 hr isosorbide mononitrate 60 mg extended [...] 01, 2019 9:26pm June 15, 2019 4:11pm heart/blood pressure 90 mg PO In the morning, 60 [...] 24, 2022 10:56am September 01, 2022 8:37am heart/BP Start: 04-06-2019 End: 06-15-2019 Isosorbide Mononitrate 60 mg tablet extended release 24 hr Discontinued 90 mg PO .COMPLEX 0 April 06, 2019 12:16pm June 01, 2019 9:26pm heart/blood pressure 90 mg PO In the morning, 60 [...] 08, 2018 12:05pm April 06, 2019 12:17pm heart/blood pressure Start: 08-26-2018 End: 09-08-2018 take 1 tablet by mouth once daily in the morning, then take 1 tablet by mouth every twenty-four hours Isosorbide Mononitrate 60 mg tablet extended release 24 hr Discontinued 60 mg PO EVERY MORNING 1 0 August 26, 2018 1:40pm September 08, 2018 12:05pm heart/blood pressure Start: 08-03-2018 End: 08-26-2018 take 1 tablet by mouth twice daily, then take 1 tablet by mouth every twenty-four hours Isosorbide Mononitrate 60 mg tablet extended release 24 hr Discontinued 60 mg PO TWICE A DAY 180 August 03, 2018 11:41am August 26, 2018 1:40pm heart/blood pressure Start: 04-12-2018 End: 08-03-2018 take 1 tablet by mouth once daily, then take 1 tablet by mouth every twenty-four hours Isosorbide Mononitrate 60 mg tablet extended release 24 hr Discontinued 60 mg PO DAILY 90 June 09, 2018 4:38pm August 03, 2018 11:42am heart/blood pressure Start: 12-02-2017 End: 04-12-2018 take 1 tablet by mouth twice daily Isosorbide Mononitrate 60 MG tablet Discontinued 60 mg PO TWICE A DAY 0 December 02, 2017 12:00am April 12, 2018 4:09pm Start: 05-07-2016 End: 12-02-2017 take 1 tablet by mouth once daily Isosorbide Mononitra te 120 MG tablet Discontinued 120 mg PO DAILY January 21, 2017 12:00am December 02, 2017 10:52am heart losartan potassium 100 mg oral tablet (20 sources) Angiotensin 2 Receptor Kale Start: 10-01-2023 End: 06-14-2024 take 1 tablet by mouth once daily Losartan 100 mg tablet Active 100 mg PO DAILY 90 June 14, 2024 11:57am Start: 09-16-2023 End: 10-01-2023 take 1 tablet by mouth twice daily Losartan (Cozaar) 25 mg tablet Discontinued 25 mg PO TWICE A DAY 180 September 16, 2023 1:15pm October 01, 2023 2:16pm Start: 12-15-2022 End: 09-16-2023 take 1 tablet by mouth once daily Losartan (Cozaar) 25 mg tablet Discontinued 25 mg PO DAILY 30 September 13, 2023 8:52am September 16, 2023 9:31am magnesium oxide 400 mg oral tablet (20 sources) Start: 08-01-2021 take 1 tablet by mouth once daily Magnesium Oxide 400 mg (241.3 mg magnesium) tablet Active 800 mg PO DAILY August 01, 2021 10:20am SUPPLEMENT Start: 12-05-2019 End: 08-01-2021 take 1 tablet by mouth once daily Magnesium Oxide 400 mg (241.3 mg magnesium) tablet Discontinued 400 mg PO DAILY December 05, 2019 11:33am August 01, 2021 10:22am SUPPLEMENT Start: 06-15-2019 End: 12-05-2019 take 1 tablet by mouth three times daily Magnesium Oxide 400 mg (241.3 mg magnesium) tablet Discontinued 400 mg PO THREE TIMES A DAY June 15, 2019 4:09pm December 05, 2019 11:33am Start: 06-04-2019 End: 06-15-2019 take 1 tablet by mouth twice daily at mealtime Magnesium Oxide 400 MG tablet Discontinued 400 mg PO TWICE DAILY WITH MEALS 0 June 04, 2019 1:00am June 15, 2019 4:11pm Start: 04-12-2018 End: 08-26-2018 take 2 tablets by mouth once daily Magnesium Oxide 400 MG tablet Discontinued 800 mg PO DAILY April 12, 2018 1:00am August 26, 2018 1:43pm supplement Start: 04-12-2018 End: 08-26-2018 take 800 mg [...] NEEDED as needed for vertiginous symptoms 0 0 September 21, 2022 12:00am October 12, [...] 19, 2022 10:06am October 25, 2024 8:15am DM Start: 11-21-2021 End: 08-19-2022 take 1 tablet [...] Discontinued 2.5 mg PO every other day 90 March 27, 2024 3:36pm April 17, 2024 5:01pm Start: 03-20-2024 End: 03-27-2024 take 1 tablet by mouth once daily Metolazone 2.5 mg tablet Discontinued 2.5 mg PO daily 90 March 20, 2024 1:00am March 27, 2024 [...] 24 hr Active 25 mg PO DAILY 30 October 25, 2024 12:00am Start: 12-22-2022 End: [...] 19, 2022 10:32am December 15, 2022 1:46pm BP Start: 09-16-2021 End: 08-19-2022 Metoprolol Tartrate 25 [...] 50 mg PO TWICE A DAY 180 3 March 24, 2019 11:59am June 04, 2019 10:48am Start: 10-21-2018 End: 03-24-2019 Metoprolol Tartrate 100 mg t ablet Discontinued 50 mg PO TWICE A DAY 180 3 October 21, 2018 10:05am March 24, 2019 11:59am Start: 10-21-2018 End: 03-24-2019 take 50 mg by mouth twice daily Metoprolol Tartrate Di scontinued 50 MG PO TWICE A DAY 180 October 21, 2018 9:05am March 24, 2019 10:59am Start: 08-26-2018 End: 10-21-2018 take 1 tablet by mouth twice daily Metoprolol Tartrate 100 mg tablet Discontinued 100 mg PO TWICE A DAY 180 3 October 18, 2018 5:14pm October 21, 2018 10:05am Start: 12-02-2017 End: 04-12-2018 Metoprolol Tartrate 25 MG ta blet Discontinued 12.5 mg PO TWICE A DAY 60 0 December 02, 2017 12:00am April 12, 2018 4:41pm Start: 12-02-2017 End: 04-12-2018 take 12.5 mg by mouth twice daily Metoprolol Tartrate Discontinued 12.5 MG PO TWICE A DAY 60 December 01, 2017 11:00pm April 12, 2018 3:41pm Start: 07-22-2017 End: 12-02-2017 take 1 tablet by mouth twice daily Metoprolol Tartrate 50 mg tablet Discontinued 50 mg PO TWICE A DAY 180 3 August 17, 2017 4:03pm November 30, 2017 7:38pm Start: 01-21-2017 End: 09-16-2021 take 1 tablet by mouth twice daily Metoprolol Tartrate 25 mg tablet Discontinued 0 .ROUTE .COMPLEX 180 3 March 31, 2021 7:45am August 01, 2021 [...] PO AT BEDTIME September 21, 2018 11:10am sleep Start: 08-26-2018 End: 09-21-2018 take 7.5 mg [...] 60 meq PO TWICE A DAY 180 3 June 14, 2024 12:00pm supplement Start: 08-01-2021 take 60 mEq by mouth twice daily Potassium Chloride Active 60 MEQ PO TWICE A DAY August 01, 2021 9:21am Start: 12-30-2018 End: 08-01-2021 take 2 tablets by mouth twice daily Potassium Chloride 20 mEq tablet,ER particles/crystals Discontinued 40 meq PO TWICE A DAY 360 3 September 02, 2020 4:54pm August 01, 2021 10:22am supplement Start: 12-30-2018 End: 08-01-2021 take 40 mEq by mouth twice daily Potassium Chloride Discontinued 40 MEQ PO TWICE A DAY 360 September 02, 2020 3:54pm August 01, 2021 9:22am Start: 04-12-2018 End: 12-30-2018 take 1 tablet by mouth twice daily Potassium Chloride 20 mEq tablet,ER particles/crystals Discontinued 20 meq PO TWICE A DAY 180 3 June 09, 2018 4:39pm December 29, 2018 11:26am supplement Start: 08-30-2017 End: 01-19-2018 take 3 tablets by mouth twice daily Potassium Chloride 20 mEq tablet extended release Discontinued 60 meq PO TWICE A DAY August 30, 2017 1:47pm January 19, 2018 3:32pm potassium Start: 08-30-2017 End: 01-19-2018 take 60 mEq [...] mg tablet Active 50 mg PO DAILY 90 3 June 14, 2024 12:00pm Start: 10-28-2018 End: 10-12-2023 take 1 tablet by mouth once daily Spironolactone 25 mg tablet Discontinued 25 mg PO DAILY 90 3 January 06, 2023 3:43pm October 12, 2023 4:24pm fluid Start: 01-21-2017 End: 10-28-2018 take 1 tablet by mouth once daily Spironolactone 50 mg tablet Discontinued 50 mg PO DAILY 90 3 June 09, 2018 4:39pm October 28, 2018 3:28pm fluid take 1 tablet by sara th once daily spironolactone (ALDACTONE) 50 MG tablet Take 50 mg by mouth daily. Active vitamin b12 1 mg oral capsule (20 sources) Vitamin B12 Start: 06-01-2019 take 1 capsule by mouth once daily Cyanocobalamin (Vitamin B-12) 1,000 MCG capsule Active 1000 ug PO DAILY 0 0 June 01, 2019 1:00am vitamin Start: 04-12-2018 End: 08-26-2018 take 2 tablets by mouth once daily Cyanocobalamin (Vitamin B-12) 500 MCG tablet Discontinued 1000 ug PO DAILY@0800 April 12, 2018 1:00am August 26, 2018 1:43pm supplement Start: 04-12-2018 End: 08-26-2018 take 1000 ug by mouth once daily Cyanocobalamin (Vitamin B-12) Discontinued 1000 MCG PO DAILY@0800 April 12, 2018 12:00am August 26, 2018 [...] mg tablet Discontinued 5 mg PO DAILY 90 3 June 14, 2024 11:58am October 25, 2024 8:14am Start: 08-01-2021 End: 12-15-2022 take 1 tablet by mouth twice daily Amlodipine 5 mg tablet Discontinued 5 mg PO TWICE A DAY 60 March 11, 2022 4:59pm December 15, 2022 1:46pm bp Start: 01-09-2020 End: 08-01-2021 take 5 mg by mouth once daily Amlodipine 10 mg tablet Discontinued 5 mg PO DAILY January 09, 2020 3:04pm August 01, 2021 10:38am bp Start: 01-09-2020 End: 08-01-2021 take 5 mg by mouth once daily Amlodipine Discontinued 5 MG PO DAILY January 09, 2020 2:04pm August 01, 2021 9:38am Start: 07-05-2019 End: 08-12-2020 take 1 tablet by mouth once daily Amlodipine 10 mg tablet Discontinued 10 mg PO DAILY December 05, 2019 11:47am August 12, 2020 3:29pm bp Start: 10-28-2018 End: 07-05-2019 take 1 tablet by mouth once daily Amlodipine (Norvasc) 2.5 mg tablet Discontinued 2.5 mg PO DAILY 90 3 March 31, 2019 4:07pm July 05, 2019 [...] MG tablet Discontinued 875 mg PO Q12H 20 0 June 10, 2021 1:00am August 01, 2021 10:18am atorvastatin 40 mg oral tablet (20 sources) HMG-CoA Reductase Inhibitor Start: 08-26-2018 End: 06-14-2024 take 1 tablet by mouth at bedtime Atorvastatin 40 mg tablet Discontinued 40 mg PO AT BEDTIME 90 3 November 02, 2023 2:50pm June 14, 2024 12:00pm CHOLESTEROL Start: 05-14-2017 End: 08-17-2017 take 1 tablet [...] Discontinued 6.25 mg PO TWICE A DAY 180 June 14, 2024 11:59am October 25, 2024 [...] capsule Discontinued 50 ug PO DAILY 0 0 June 01, 2019 1:00am September 16, 2021 10:43am vitamin ERGOCALCIFEROL, VITAMIN D2, (VITAMIN D2 ORAL) Take by mouth. Active furosemide 40 mg oral tablet (20 sources) Loop Diuretic Start: 03-20-2024 End: 06-14-2024 take 1 tablet by mouth twice daily Furosemide 40 mg tablet Discontinued 40 mg PO TWICE A DAY 180 3 March 22, 2024 1:00am June 14, 2024 12:00pm Start: 06-15-2019 End: 03-20-2024 take 2 tablets by mouth once daily Furosemide 40 mg tablet Discontinued 80 mg PO DAILY 180 3 March 24, 2023 1:58pm March 20, 2024 3:44pm diuretic Start: 06-15-2019 End: 03-24-2023 take 80 mg by mouth once daily Furosemide Active 80 MG PO DAILY 180 March 24, 2023 12:58pm Start: 06-04-2019 End: 06-15-2019 take 1 tablet by mouth once daily Furosemide 40 mg tablet Discontinued 40 mg PO DAILY 0 0 June 04, 2019 10:41am June 15, 2019 4:42pm diuretic Start: 04-06-2019 End: 06-04-2019 take 2 tablets by mouth once daily Furosemide 40 mg tablet Discontinued 80 mg PO DAILY April 06, 2019 12:02pm June 04, 2019 10:41am diuretic Start: 04-06-2019 End: 06-04-2019 take 80 mg by mouth once daily Furosemide Discontinued 80 MG PO DAILY April 06, 2019 11:02am June 04, 2019 9:41am Start: 12-29-2018 End: 04-06-2019 take 1 tablet by mouth twice daily Furosemide 40 mg tablet Discontinued 40 mg PO TWICE A DAY 180 3 December 29, 2018 11:26am April 06, 2019 12:03pm Start: 10-28-2018 End: 12-29-2018 take 1 tablet by mouth once daily Furosemide 40 mg tablet Discontinued 40 mg PO DAILY October 28, 2018 2:29pm December 29, 2018 11:26am Start: 10-21-2018 End: 10-28-2018 Furosemide 40 mg tablet Disc ontinued 40 mg PO DAILY 90 3 October 21, 2018 10:05am October 28, 2018 2:32pm 40 mg BID for 5 days starting 10/21/2018, then once a day Start: 09-08-2018 End: 10-21-2018 take 1 tablet by mouth once daily Furosemide 40 mg tablet Discontinued 40 mg PO DAILY 90 3 September 08, 2018 12:00am October 21, 2018 10:06am Start: 12-02-2017 End: 09-08-2018 take 1 tablet by mouth once daily Furosemide 20 mg tablet Discontinued 20 mg PO DAILY 90 3 June 09, 2018 4:38pm September 08, 2018 12:05pm diuretic/water pill Start: 01-21-2017 End: 12-02-2017 take 1 tablet [...] U SC BEFORE MEALS AND AT BEDTIME 0 December 22, 2019 12:00am January 03, 2020 8:29am Please contact the information source for Protocol details. Start: 12-22-2019 End: 01-03-2020 Insulin Lispro Discontinued 0 UNIT SC BEFORE MEALS AND AT BEDTIME December 21, 2019 11:00pm January 03, 2020 7:29am Magnesium (20 sources) Start: 06-04-2019 End: 06-04-2019 take 2 tablets by mouth once daily Magnesium 200 MG tablet Discontinued 400 mg PO DAILY 0 0 June 04, 2019 10:41am June 04, 2019 10:42am cramps Start: 06-04-2019 End: 06-04-2019 take 2 tablets [...] 01, 2019 1:00am June 04, 2019 10:41am cramps Start: 06-01-2019 End: 06-04-2019 Magnesium 200 MG [...] 2019 10:41am melatonin 3 mg oral tablet (20 sources) Start: 09-21-2022 End: 12-15-2022 take 1 [...] Discontinued 500 mg PO EVERY 6 HOURS May 19, 2021 1:00am August 01, 2021 [...] 15 minutes as needed for CHEST PAIN 27 05December 04, 2019 1:51pm February 20, 2021 10:50am Nut.Tx.Gluc Intol,Lf,Soy-Fiber (Glucerna 1.2 Ashwin) 0.06-1.2 gram-kcal/mL Liquid (20 sources) Start: 09-21-2022 End: 10-12-2023 take 1 mL by mouth three times daily at mealtime Nut.Tx.Gluc Intol,Lf,Soy-Fiber (Glucerna 1.2 Ashwin) 0.06-1.2 gram-kcal/mL Liquid Discontinued 120 mL PO 3 TIMES DAILY WITH MEALS 0 September 21, 2022 12:00am October 12, 2023 4:22pm Start: 09-21-2022 End: 10-12-2023 take 1 mL [...] release (DR/EC) Discontinued 40 mg PO DAILY 90 3 December 10, 2023 11:46am June 14, 2024 12:00pm GERD Start: 01-21-2017 End: 08-26-2018 take 1 tablet by mouth twice daily Pantoprazole 40 mg tablet,delayed release (DR/EC) Discontinued 40 mg PO TWICE A DAY 180 3 June 09, 2018 4:39pm August 26, 2018 1:41pm stomach Start: 08-07-2016 take 1 tablet by sara twice daily pantoprazole (PROTONIX) 40 MG tablet [...] Discontinued 20 mg PO AT BEDTIME 90 3 June 09, 2018 4:39pm August 26, 2018 1:38pm cholesterol Start: 08-17-2017 End: 11-30-2017 take 1 tablet by mouth at bedtime Pravastatin 20 mg tablet Discontinued 20 mg PO AT BEDTIME 90 3 August 17, 2017 12:00am November 30, 2017 7:41pm predniSONE 20 mg oral tablet (8 sources) Start: 09-20-2024 End: 10-25-2024 take 2 tablets by mouth once daily, then take 1 tablet by mouth once daily Prednisone 20 mg tablet Discontinued 20 mg PO daily 10 September 20, 2024 12:00am October 25, 2024 8:20am Take 2 tablets daily for 4 days then 1 tablet daily for 2 days. pregabalin 50 mg oral capsule (20 sources) Start: 08-27-2017 End: 09-07-2017 take 1 capsule by mouth once daily Pregabalin 50 MG capsule Discontinued 50 mg PO DAILY 7 7 0 August 27, 2017 12:00am September 07, 2017 1:16pm 12 hr ranolazine 1000 mg extended release oral tablet (20 sources) Anti-lex nal Start: 10-29-2023 End: 11-12-2023 take 1 tablet by mouth twice daily at mealtime Ranolazine 1,000 mg tablet extended release 12 hr Discontinued 1000 mg PO TWICE A DAY 60 October 29, 2023 1:18pm November 12, 2023 4:10pm take with food Start: 10-01-2023 End: 10-29-2023 take 1 tablet by mouth twice daily at mealtime Ranolazine 500 mg tablet extended release 12 hr Discontinued 500 mg PO TWICE A DAY 60 October 01, 2023 12:00am October 29, 2023 1:19pm take with food Semaglutide (14 sources) Start: 04-17-2024 End: 05-15-2024 Semaglutide (Ozempic) 0.25 m g or 0.5 mg (2 mg/3 mL) pen injector Discontinued 0.25 mg SC EVERY WEEK 1.472 28 April 17, 2024 1:00am May 14, 2024 1:00am May 15, 2024 1:10am for 4 weeks Start: 04-17-2024 End: 05-15-2024 Semaglutide (Ozempic) 0.25 m g or 0.5 mg (2 mg/3 mL) pen injector Discontinued 0.25 mg SC EVERY WEEK 1472 April 17, 2024 1:00am May 14, 2024 [...] 30, 2017 12:00am September 21, 2018 11:12am mental health Problems Active Problems Problem Classification Problem Date Documented Date Episodic/Chronic Asthma (2 sources) Asthma; Translations: [Unspecified asthma, uncomplicated] 10-31-2024 Chronic Cardiac dysrhythmias (20 sources) Palpitations; Translations: [Palpitations] [...] heart disease (20 sources) Coronary arteriosclerosis in [place] artery; Translations: [Preinfarction syndrome] Onset: 01-05-2015 10-15-2016 [...] injuries and conditions due to external causes (14 sources) Open wound; Translations: [Other injury of unspecified body region, initial encounter] 12-14-2022 Episodic Other lower respiratory disease (11 sources) Dyspnea; Translations: [Shortness of breath] Episodic Other lower respiratory disease (20 sources) Dyspnea on exertion; Translations: [Dyspnea, unspecified] Episodic Other lower respiratory disease (20 sources) Cough; Translations: [Cough] 01-26-2021 Episodic Other lower respiratory disease (4 sources) Dyspnea, unspecified; Translations: [Other respiratory abnormalities] Onset: 07-27-2024 Episodic Other lower respiratory disease (9 sources) Wheezing; Translations: [Wheezing] 09-20-2024 Episodic Other lower respiratory disease (2 sources) Shortness of breath; Translations: [Shortness of breath] Onset: 10-31-2024 Episodic Other lower respiratory disease (1 source) Wheezing; Translations: [Wheezing] Onset: 10-31-2024 Episodic Other nutritional; endocrine; and metabolic disorders [...] and adjustment of other specified devices] Onset: 10-31-2024 Chronic Residual codes; unclassified (20 sources) Obstructive sleep apnea syndrome; Translations: [Obstructive sleep apnea (adult) (pediatric)] Onset: 01-25-2015 01-25-2015 Chronic Comment on above: AHI 64.7 Residual codes; unclassified (6 sources) Obstructive sleep apnea (adult) (pediatric); Translations: [Obstructive sleep apnea (adult)(pediatric)] Onset: 10-19-2024 Chronic Residual codes; unclassified (2 sources) Central sleep apnea syndrome; 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] 10-31-2024 Chronic Residual codes; unclassified (2 sources) Primary central sleep apnea; 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] Onset: 10-31-2024 Chronic Residual codes; unclassified (20 sources) Bilateral [...] used.Successful PTCA/KENDALL Prox RCA ISR using [place] 3.5x22 mm, post-dilated using 3.[address] 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 Procedure aborted. 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 [place] [address] OFFICE VISIT Date of Service: 10/31/24 MR#: [id number] Acct: [id number] Name: ERIBERTO RICO Rep #: [id number] : 1945 Provider: Maren Olivas NP Age/Sex: 79/M Location: [facility] [place] Status: Signed Assessment and Plan Assessment and Plan (1) Central sleep apnea: Status: Acute Plan: Failure of BiPAP therapy to adequately control sleep apnea. The patient is symptomatically uncontrolled. AHI is elevated on compliance download. Air leak has attempted to be mitigated by working with RT. The patient is washing his face at night prior to placing his mask on and is replacing his mask frequently, he reports monthly. I have recommended that the patient undergo an ASV titration for CSA as long as the echocardiogram shows an ejection fraction of greater than 45%. (2) Obstructive sleep apnea: Status: Chronic Comment: AHI 64.7 Plan: Mixed apnea has been identified. The recommendation was to trial BiPAP therapy which the patient is currently utilizing but he is suboptimally controlled with this modality. I have discussed at length the correlation between suboptimal control of sleep apnea and cardiovascular disease. (3) COPD (chronic obstructive pulmonary disease): Status: Chronic Qualifiers: COPD type: unspecified COPD Qualified Code(s): J44.9 - Chronic obstructive pulmonary disease, unspecified Comment: FEV1 is 76% Plan: The degree and characteristic of symptoms described today do not correlate to the degree of pulmonary disease seen on the recent PFT. Continue with Arnuity 200, 1 inhalation daily for asthma. Albuterol has not provided him with significant benefit which continues to point to a cardiovascular etiology for his shortness of breath and chest pain. CBC did show a reduced hemoglobin. It corrected the gas transfer to 78% predicted from 64% predicted. The patient does not require supplemental oxygen at this time. He may benefit from nocturnal supplemental oxygen, await sleep study. (4) Obesity: Status: Chronic Qualifiers: Body mass index: BMI 36.0-36.9 Obesity classification: adult class 2 (BMI 35 - 39.9) Obesity type: due to excess calories Serious obesity comorbidity presence: with serious comorbidity Qualified Code(s): E66.812 - Obesity, class 2; E66.01 - Morbid (severe) obesity due to excess calories; Z68.36 - Body mass index [BMI] 36.0-36.9, adult Plan: Complicates exam, plan, care and prognosis. (5) Diastolic heart failure: Status: Chronic Qualifiers: Heart failure chronicity: chronic Qualified Code(s): I50.32 - Chronic diastolic (congestive) heart failure Plan: Echocardiogram from October 2023 indicated stage I diastolic dysfunction. RVSP not estimated. I have ordered a echocardiogram today to evaluate for the ejection fraction but this will also likely be able to identify if there continues to be diastolic dysfunction and may be able to estimate RVSP. The patient should continue to follow with cardiology and the testing that has been ordered. (6) Asthma: Status: Acute Plan: His last PFT and NIOX were suggestive of asthma. He is using Arnuity with good benefit today. His NIOX is within normal limits. I do not believe that asthma is exacerbating today. Orders: Orders Echo Complete W/ Contrast Today R06.02 - Shortness of breath NIOX Today R06.2 - Wheezing Polysomnography with PAP Today G47.31 - Primary central sleep apnea Plan Details Follow Up: 3 Months (LMR) HPI HPI Comments Details: This patient presents to the office today to follow-up for obstructive sleep apnea and COPD, to review recent testing. He is ambulatory with the use of a cane. Previous pulmonary function test indicated mild COPD, most recent pulmonary function study showed an isolated reduction in diffusion capacity. This did improve when corrected for a reduced hemoglobin to 78% predicted. He does have a distant smoking history, quitting completely 30 years ago. At last visit he was given a trial of Arnuity 200, 1 inhalation daily. He was given this trial due to elevated NIOX level. He has tried albuterol inhaler when he has had chest pain and shortness of breath and hasn't felt benefit. He is using Lasix 40 mg BID and has spirolactone. He has lost 6 pounds in the last 1-2 weeks. He is watching his salt intake but eating a few chips. He feels like he has gained weight in the last few weeks, especially in his legs. He reports that his legs are painful. He indicates that he is having worsening shortness of breath and dizziness. He almost went to the ER a few times because of chest pain . He has seen cardiology and is planning on a stress test. He reports that he has fallen due to the dizziness. He has noticed occasional wheeze. He has cough on occasion with sputum but he does not ob (more content not included)... Normal [facility] Cardiology Visit Reporton Cardiology Visit Report [facility] [address] [place] [address] OFFICE VISIT Date of Service: 10/25/24 MR#: [id number] Acct: [id number] Name: ERIBERTO RICO Rep #: [id number] : 1945 Provider: YRN arvizu Age/Sex: 79/M Location: [facility] Status: Signed HPI HPI History [...] NIBP Intake Visit Reasons: Shortness of breath Clinical Research Administrator Required: No Is patient in pain?: No [...] [address] 09/16/21 History mcg (1,000 unit) tablet fluoxetine 40 mg capsule 80 mg PO DAILY DEPRESSION 90 days 09/16/21 10/25/24 History #180 caps acetaminophen 325 mg tablet 650 mg PO Q6H PRN Pain -02/0910/25/24 History meclizine 25 mg tablet 25 mg [...] you fallen in the past year?: Yes [facility] Medical History Shortness of breath Unstable angina Fatigue Syncope Left-sided weakness History of COVID-19 Presence of stent in coronary artery ( 08/31/22) Dyslipidemia Diabetes mellitus 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 Coronary artery disease Angina pectoris Abnormal PFT Chest heaviness Pa (more content not included)... Normal [facility] L3410.9992on 10-23-2024 [facility] Misc. COMMENT Normal . [facility] Comment on above: Order Comment: [id number] MED TOX Result Comment: Test Ordered: [id number] Amphetamines Screen, Urine Negative ng/mL UI Reference Range: Yxstfb=892 Amphetamine test includes Amphetamine and Methamphetamine. Barbiturates Negative ng/mL UI Reference Range: Fmfuft=037 Benzodiazepines Negative ng/mL UI Reference Range: Yunsjj=856 Cocaine (Metab.), Urine Negative ng/mL UI Reference Range: Keikvb=015 Opiates Note: ng/mL UI See Final Results Reference Range: Fckltg=317 Opiate test includes Codeine, Morphine, Hydromorphone, Hydrocodone. Opiates Positive [A ] UI Reference Range: Hwefdu=555 Opiate test includes Codeine, Morphine, Hydromorphone, Hydrocodone. Codeine Negative UI Reference Range: Evdyrf=948 Morphine Negative UI Reference Range: Bmtvqy=301 Hydromorphone Negative UI Reference Range: Evbhbt=008 Hydrocodone Positive [A ] UI Reference Range: . Hydrocodone Conf, MS, UR 349 ng/mL UI Reference Range: Swnjrn=180 6-Acetylmorphine, Urine Negative ng/mL UI Reference Range: Cutoff=10 Oxycodone/Oxymorphone, Urine Negative ng/mL UI Reference Range: Lbhdse=871 Test includes Oxycodone and Oxymorphone PCP, Urine Negative ng/mL UI Reference Range: Cutoff=25 Methadone Screen, Urine Negative ng/mL UI Reference Range: Cyidnx=225 Propoxyphene, Urine Negative ng/mL UI Reference Range: Dyytxv=333 Fentanyl, Urine Negative ng/mL UI Reference Range: Cutoff=2.0 Test includes Fentanyl and Norfentanyl This test was developed and its performance characteristics determined by [facility]. It has not been cleared or approved by the Food and Drug Administration. Tramadol Negative ng/mL UI Reference Range: Fdajpv=966 Buprenorphine, Urine Negative ng/mL UI Reference Range: Cutoff=10 Creatinine, Urine 36.9 mg/dL UI Reference Range: 20.0-300.0 pH, Urine 6.1 UI Reference Range: 4.5-8.9 Performed at: [facility] [address] [place], [place] [id number] [employer] Conveyor Tender: Erik Wallis PhD, Phone: [phone] Performed at: [address] [id number] [employer] Tender: Bharath Hawthorne PhD, Phone: [phone] Performed By: #### L 3912.3604, L505.5000 #### [facility] [address] [place], [address] Absolute lymphocyte countOrd ered By: Gustabo Pérez on 10-18-2024 Lymphocytes Auto (Unsp spec) [#/Vol] 1.15 10*3/uL 0.83-4.51 [facility] Absolute neutrophil countOrd ered By: Gustabo Pérez on 10-18-2024 Neutrophils (Bld) [#/Vol] 4.6 10*3/uL 2.0-7.7 [facility] Amphetamine detection with 1 000 ng/mL as cutoffOrdered By: Brooks Carpenter on 10-18-2024 Amphetamines Screen method >1000 ng/mL Ql (U) Negative < 200 ng/mL [facility] Anion gap in Serum or Plasma Ordered By: Gustabo Pérez on 10-18-2024 Anion gap [Moles/Vol] 12 mmol/L 5-15 [facility] Automated lymphocyte count a s percentage of total leukocytesOrdered By: Gustabo Pérez on 10-18-2024 Lymphocytes/100 WBC Auto (Unsp spec) 17.4 % Low 19-41 [facility] BUN/creatinine ratioOrdered By: Gustabo Pérez on 10-18-2024 Urea nitrogen/Creatinine [Mass ratio] 16.4 mg/mg 10-20 [facility] Basic Metabolic Profile (BMP )on 10-18-2024 BUN/CRE 16.4 RATIO Normal 10-20 [facility] Comment on above: Performed By: #### L 500.2500, L503.7505, L100.0100 #### [facility] [address] [place], [address] Calcium [Mass/Vol] 9.0 mg/dL Normal 7.6-11.0 [facility] Comment on above: Performed By: #### L 500.2500, L503.7505, L100.0100 #### [facility] [address] [place], [address] Chloride [Moles/Vol] 103 mmol/L Normal 98-108 [facility] Comment on above: Performed By: #### L 500.2500, L503.7505, L100.0100 #### [facility] [address] [place], [address] CO2 [Moles/Vol] 23.9 mmol/L Normal 21.0-32.0 [facility] Comment on above: Performed By: #### L 500.2500, L503.7505, L100.0100 #### [facility] [address] [place], [address] Creatinine [Mass/Vol] 2.00 mg/dL High 0.70-1.20 [facility] Comment on above: Performed By: #### L 500.2500, L503.7505, L100.0100 #### [facility] [address] [place], [address] GAP 12 Normal 5-15 [facility] Comment on above: Performed By: #### L 500.2500, L503.7505, L100.0100 #### [facility] [address] [place], [address] GFR/1.73 sq M.predicted among non-blacks MDRD (S/P/Bld) [Vol rate/Area] 33 mL/min/{1.73_m2} Low >60 [facility] Comment on above: Result Comment: mL/m in/1.73m2 CKD-EPI Creatinine Equation (2020) Performed By: #### L 500.2500, L503.7505, L100.0100 #### [facility] [address] [place], [address] Glucose [Mass/Vol] 125 mg/dL High 70-99 [facility] Comment on above: Performed By: #### L 500.2500, L503.7505, L100.0100 #### [facility] [address] [place], [address] Potassium [Moles/Vol] 4.8 mmol/L Normal 3.3-5.1 [facility] Comment on above: Performed By: #### L 500.2500, L503.7505, L100.0100 #### [facility] [address] [place], [address] Sodium [Moles/Vol] 139 mmol/L Normal 133-145 [facility] Comment on above: Performed By: #### L 500.2500, L503.7505, L100.0100 #### [facility] [address] [place], [address] Urea nitrogen [Mass/Vol] 33 mg/dL High 4-19 [facility] Comment on above: Performed By: #### L 500.2500, L503.7505, L100.0100 #### [facility] [address] [place], [address] Basophil percentageOrdered B y: Gustabo Pérez on 10-18-2024 Basophils/100 WBC (Bld) 0.2 % 0-1 W [facility] CBC W/Diff, Automatedon 10-01 Absolute Lymph 1.15 X10 3/uL Normal 0.83-4.51 [facility] Comment on above: Performed By: #### L 500.2500, L503.7505, L100.0100 #### [facility] [address] [place], [address] Absolute Neut 4.6 X10 3/uL Normal 2.0-7.7 [facility] Comment on above: Performed By: #### L 500.2500, L503.7505, L100.0100 #### [facility] [address] [place], [address] Basophils/100 WBC (Bld) 0.2 % Normal 0-1 [facility] Comment on above: Performed By: #### L 500.2500, L503.7505, L100.0100 #### [facility] [address] [place], [address] Eosinophils/100 WBC (Bld) 2.0 % Normal 0-5 [facility] Comment on above: Performed By: #### L 500.2500, L503.7505, L100.0100 #### [facility] [address] [place], [address] Erythrocyte distribution width (RBC) [Ratio] 14.3 % Normal 11.6-14.6 [facility] Comment on above: Performed By: #### L 500.2500, L503.7505, L100.0100 #### [facility] [address] [place], [address] Hematocrit (Bld) [Volume fraction] 36.4 % Low 40-54 [facility] Comment on above: Performed By: #### L 500.2500, L503.7505, L100.0100 #### [facility] [address] [place], [address] Hemoglobin (Bld) [Mass/Vol] 11.5 g/dL Low 13.0-16.5 [facility] Comment on above: Performed By: #### L 500.2500, L503.7505, L100.0100 #### [facility] [address] [place], [address] IG% 0.600 Normal 0.0-0.9 [facility] Comment on above: Result Comment: IG% - Immature Granulocytes (promyelocytes, myelocytes and metamyelocytes) > 1% indicates that a LEFT SHIFT is Present. Performed By: #### L 500.2500, L503.7505, L100.0100 #### [facility] [address] [place], [address] Lymphocytes/100 WBC (Bld) 17.4 % Low 19-41 [facility] Comment on above: Performed By: #### L 500.2500, L503.7505, L100.0100 #### [facility] [address] [place], [address] MCH (RBC) [Entitic mass] 29.4 pg Normal 27.0-32.0 [facility] Comment on above: Performed By: #### L 500.2500, L503.7505, L100.0100 #### [facility] [address] [place], [address] MCHC (RBC) [Mass/Vol] 31.6 g/dL Low 32-36 [facility] Comment on above: Performed By: #### L 500.2500, L503.7505, L100.0100 #### [facility] [address] [place], [address] MCV (RBC) [Entitic vol] 93.1 fL Normal 80-[address] [facility] Comment on above: Performed By: #### L 500.2500, L503.7505, L100.0100 #### [facility] [address] [place], [address] Monocytes/100 WBC (Bld) 10.4 % High 0-[address] [facility] Comment on above: Performed By: #### L 500.2500, L503.7505, L100.0100 #### [facility] [address] [place], [address] Neutrophils/100 WBC (Bld) 69.4 % Normal 47-70 [facility] Comment on above: Performed By: #### L 500.2500, L503.7505, L100.0100 #### [facility] [address] [place], [address] Nucleated RBC (Bld) [#/Vol] 0 10*3/uL Normal 0-5 [facility] Comment on above: Performed By: #### L 500.2500, L503.7505, L100.0100 #### [facility] [address] [place], [address] Platelet mean volume (Bld) [Entitic vol] 12.9 fL High 6.2-12.0 [facility] Comment on above: Performed By: #### L 500.2500, L503.7505, L100.0100 #### [facility] [address] [place], [address] Platelets (Bld) [#/Vol] 152 10*3/uL Normal 150-450 [facility] Comment on above: Performed By: #### L 500.2500, L503.7505, L100.0100 #### [facility] [address] [place], [address] RBC (Bld) [#/Vol] 3.91 10*6/uL Low 4.6-6.2 [facility] Comment on above: Performed By: #### L 500.2500, L503.7505, L100.0100 #### [facility] [address] [place], [address] RDW SD 48.5 fl High 35.1-43.9 [facility] Comment on above: Performed By: #### L 500.2500, L503.7505, L100.0100 #### [facility] [address] [place], [address] WBC (Bld) [#/Vol] 6.6 10*3/uL Normal 4.4-11.0 [facility] Comment on above: Performed By: #### L 500.2500, L503.7505, L100.0100 #### [facility] [address] [place], [address] Carbon dioxide, total [Moles /volume] in Central venous bloodOrdered By: Gustabo Pérez on 10-18-2024 CO2 [Moles/Vol] 23.9 mmol/L 21.0-32.0 [facility] Chloride assayOrdered By: Lydia Pérez on 10-18-2024 Chloride [Moles/Vol] 103 mmol/L 98-108 [facility] Eosinophil percentageOrdered By: Gustabo Pérez on 10-18-2024 Eosinophils/100 WBC (Bld) 2.0 % 0-5 [facility] Erythrocyte distribution wid th ratioOrdered By: Gustabo Pérez on 10-18-2024 Erythrocyte distribution width (RBC) [Ratio] 14.3 % 11.6-14.6 [facility] Erythrocyte distribution wid th standard deviationOrdered By: Gustabo Pérez on 10-18-2024 Erythrocyte distribution width (RBC) [Ratio] 48.5 fl High 35.1-43.9 [facility] Glomerular filtration rate ( GFR) estimation/1.73 sq m using serum, plasma, or whole bOrdered By: Gustabo Pérez on 10-18-2024 GFR/1.73 sq M.predicted among non-blacks MDRD (S/P/Bld) [Vol rate/Area] 33 mL/min/{1.73_m2} Low >60 [facility] Comment on above: mL/min/1.73m2 CKD-EP I Creatinine Equation (2020) Hematocrit Auto (Bld) [Volum e fraction]Ordered By: Gustabo Pérez on 10-18-2024 Hematocrit (Bld) [Volume fraction] 36.4 % Low 40-54 [facility] Hemoglobin measurementOrdere d By: Gustabo Pérez on 10-18-2024 Hemoglobin (Bld) [Mass/Vol] 11.5 g/dL Low 13.0-16.5 [facility] Immature granulocytes/100 WB C Auto (Bld)Ordered By: Gustabo Pérez on 10-18-2024 Immature granulocytes/100 WBC (Bld) 0.600 % 0.0-0.9 [facility] Comment on above: IG% - Immature Granu locytes (promyelocytes, myelocytes and metamyelocytes) > 1% indicates that a LEFT SHIFT is Present. L503.7505on 10-18-2024 Natriuretic peptide B (Bld) [Mass/Vol] 200 pg/mL Normal <=1800 [facility] Comment on above: Result Comment: Hear t Failure Unlikely: < 300 pg/mL Heart Failure Likely < 50 Years: > 450 pg/mL 50-75 Years: > 900 pg/mL >75 Years: > 1800 pg/mL Performed By: #### L 500.2500, L503.7505, L100.0100 #### [facility] [address] [place], [address] MCV (mean corpuscular volume ) determinationOrdered By: Gustabo Pérez on 10-18-2024 MCV (RBC) [Entitic vol] 93.1 fL 80-94 W [facility] Mean corpuscular hemoglobin (MCH) determinationOrdered By: Gustabo Pérez on 10-18-2024 MCH (RBC) [Entitic mass] 29.4 pg 27.0-32.0 [facility] Mean corpuscular hemoglobin concentration (MCHC) determinationOrdered By: Gustabo Pérez on 10-18-2024 MCHC (RBC) [Mass/Vol] 31.6 g/dL Low 32-36 [facility] Mean platelet volume determi nationOrdered By: Gustabo Pérez on 10-18-2024 Platelet mean volume (Bld) [Entitic vol] 12.9 fL High 6.2-12.0 [facility] Monocyte percentageOrdered B y: Gustabo Pérez on 10-18-2024 Monocytes/100 WBC (Bld) 10.4 % High 0-10 W [facility] Natriuretic peptide.B prohor efrem N-Terminal [Mass/volume] in Serum or PlasmaOrdered By: Gustabo Pérez on 10-18-2024 Natriuretic peptide.B prohormone N-Terminal [Mass/Vol] 200 pg/mL <1800 [facility] Comment on above: Heart Failure Unlike ly: < 300 pg/mLHeart Failure Likely< 50 Years: > 450 pg/mL50-75 Years: > 900 pg/mL>75 Years: > 1800 pg/mL Neutrophil percentageOrdered By: Gustabo Pérez on 10-18-2024 Neutrophils/100 WBC (Bld) 69.4 % 47-70 [facility] No Panel InformationOrdered By: Brooks Carpenter on 10-18-2024 Urine Buprenorphine Qualitative Negative < 200 ng/mL [facility] Urine Oxycodone Screen Negative < 100 ng/mL W [facility] Nucleated red blood cell per centageOrdered By: Gustabo Pérez on 10-18-2024 Nucleated RBC/100 WBC (Bld) [Ratio] 0 % 0-5 [facility] Platelet countOrdered By: Lydia Pérez on 10-18-2024 Platelets (Bld) [#/Vol] 152 10*3/uL 150-450 [facility] Potassium measurement (mass/ volume)Ordered By: Gustabo Pérez on 10-18-2024 Potassium (Unsp spec) [Mass/Vol] 4.8 mmol/L 3.3-5.1 [facility] Quantitative urine opiates m easurementOrdered By: Brooks Carpenter on 10-18-2024 Opiates Ql (U) Positive < 300 ng/mL [facility] Comment on above: If confirmation test ing is needed, a separate order will be required to send out testing to the reference laboratory. RBC Auto (Bld) [#/Vol]Ordere d By: Gustabo Pérez on 10-18-2024 RBC (Bld) [#/Vol] 3.91 10*6/uL Low 4.6-6.2 [facility] Screening urine fentanyl ritu surementOrdered By: Brooks Carpenter on 10-18-2024 fentaNYL Screen Ql (U) Negative [facility] Serum creatinine measurement (mass/volume)Ordered By: Gustabo Pérez on 10-18-2024 Creatinine [Mass/Vol] 2.00 mg/dL High 0.70-1.20 [facility] Serum glucose measurement (m ass/volume)Ordered By: Gustabo Pérez on 10-18-2024 Glucose [Mass/Vol] 125 mg/dL High 70-99 [facility] Serum or plasma calcium francine urement (mass/volume)Ordered By: Gustabo Pérez on 10-18-2024 Calcium [Mass/Vol] 9.0 mg/dL 7.6-11.0 [facility] Serum or plasma urea nitroge n measurement (mass/volume)Ordered By: Gustabo Pérez on 10-18-2024 Urea nitrogen [Mass/Vol] 33 mg/dL High 4-19 [facility] Sodium levelOrdered By: Gustabo Pérez on 10-18-2024 Sodium [Moles/Vol] 139 mmol/L 133-145 [facility] Urine Drug Screen (VISTA)on 10-18-2024 AMPHETAMINES Negative Normal <1000 ng/mL [facility] Comment on above: Order Comment: PAIN MANAGMENT Performed By: #### L 9470.9992, L505.5000 #### [facility] [address] [place], [address] BARBITIURATES Negative Normal < 200 ng/mL [facility] Comment on above: Order Comment: PAIN MANAGMENT Performed By: #### L 3410.9992, L505.5000 #### [facility] [address] [place], [address] BENZODIAZIPINE Negative Normal < 200 ng/mL [facility] Comment on above: Order Comment: PAIN MANAGMENT Performed By: #### L 3410.9992, L505.5000 #### [facility] [address] [place], [address] BUP Ur Drug Scr Negative Normal < 200 ng/mL [facility] Comment on above: Order Comment: PAIN MANAGMENT Performed By: #### L 3410.9992, L505.5000 #### [facility] [address] [place], [address] COCAINE Negative Normal < 300 ng/mL [facility] Comment on above: Order Comment: PAIN MANAGMENT Performed By: #### L 3410.9992, L505.5000 #### [facility] [address] [place], [address] Fentanyl Negative Normal [facility] Comment on above: Order Comment: PAIN MANAGMENT Performed By: #### L 3410.9992, L505.5000 #### [facility] [address] [place], [address] METHADONE Negative Normal < 300 ng/mL [facility] Comment on above: Order Comment: PAIN MANAGMENT Performed By: #### L 3410.9992, L505.5000 #### [facility] [address] [place], [address] OPIATES Positive Normal < 300 ng/mL [facility] Comment on above: Order Comment: PAIN MANAGMENT Result Comment: If c onfirmation testing is needed, a separate order will be required to send out testing to the reference laboratory. Performed By: #### L 3410.9992, L505.5000 #### [facility] [address] [place], [address] OXYCODONE Negative Normal < 100 ng/mL [facility] Comment on above: Order Comment: PAIN MANAGMENT Performed By: #### L 3410.9992, L505.5000 #### [facility] [address] [facility] [address] PCP Negative Normal < 25 ng/mL [facility] Comment on above: Order Comment: PAIN MANAGMENT Performed By: #### L 3410.9992, L505.5000 #### [facility] [address] [place], [address] THC Negative Normal < 50 ng/mL [facility] Comment on above: Order Comment: PAIN MANAGMENT Performed By: #### L 3410.9992, L505.5000 #### [facility] [address] [place], [address] Urine benzodiazepine levelOr dered By: Brooks Carpenter on 10-18-2024 Benzodiazepines Ql (U) Negative < 200 ng/mL W [facility] Urine cocaine levelOrdered B y: Brooks Carpenter on 10-18-2024 Cocaine Ql (U) Negative < 300 ng/mL [facility] Urine [id number]-[id number] abinol (THC) measurementOrdered By: Brooks Carpenter on 10-18-2024 Cannabinoids Screen Ql (U) Negative < 50 ng/mL [facility] Urine phencyclidine (PCP) de tectionOrdered By: Brooks Carpenter on 10-18-2024 Phencyclidine Ql (U) Negative < 25 ng/mL [facility] White blood cell (WBC) count Ordered By: Gustabo Pérez on 10-18-2024 WBC (Bld) [#/Vol] 6.6 10*3/uL 4.4-11.0 [facility] Absolute lymphocyte countOrd ered By: Marycramen Rodriguez on 09-29-2024 Lymphocytes Auto (Unsp spec) [#/Vol] 1.35 10*3/uL 0.83-4.51 [facility] Absolute neutrophil countOrd ered By: Marycarmen Rodriguez on 09-29-2024 Neutrophils (Bld) [#/Vol] 9.2 10*3/uL High 2.0-7.7 [facility] Automated lymphocyte count a s percentage of total leukocytesOrdered By: Marycarmen Rodriguez on 09-29-2024 Lymphocytes/100 WBC Auto (Unsp spec) 10.9 % Low 19-41 [facility] Basophil percentageOrdered B y: Marycarmen Rodriguez on 09-29-2024 Basophils/100 WBC (Bld) 0.6 % 0-1 W [facility] CBC W/Diff, Automatedon 09-02 Absolute Lymph 1.35 X10 3/uL Normal 0.83-4.51 [facility] Comment on above: Performed By: #### L 3410.9992, L505.5000 #### [facility] [address] [place], [address] Absolute Neut 9.2 X10 3/uL High 2.0-7.7 [facility] Comment on above: Performed By: #### L 3410.9992, L505.5000 #### [facility] [address] [place], [address] Basophils/100 WBC (Bld) 0.6 % Normal 0-1 W [facility] Comment on above: Performed By: #### L 3410.9992, L505.5000 #### [facility] [address] [place], [address] Eosinophils/100 WBC (Bld) 0.7 % Normal 0-5 [facility] Comment on above: Performed By: #### L 3410.9992, L505.5000 #### [facility] [address] [place], [address] Erythrocyte distribution width (RBC) [Ratio] 14.2 % Normal 11.6-14.6 [facility] Comment on above: Performed By: #### L 3410.9992, L505.5000 #### [facility] [address] [place], [address] Hematocrit (Bld) [Volume fraction] 37.4 % Low 40-54 [facility] Comment on above: Performed By: #### L 3410.9992, L505.5000 #### [facility] [address] [place], [address] Hemoglobin (Bld) [Mass/Vol] 12.1 g/dL Low 13.0-16.5 [facility] Comment on above: Performed By: #### L 3410.9992, L505.5000 #### [facility] [address] [place], [address] IG% 3.600 High 0.0-0.9 [facility] Comment on above: Result Comment: IG% - Immature Granulocytes (promyelocytes, myelocytes and metamyelocytes) > 1% indicates that a LEFT SHIFT is Present. Performed By: #### L 3410.9992, L505.5000 #### [facility] [address] [place], [address] Lymphocytes/100 WBC (Bld) 10.9 % Low 19-41 [facility] Comment on above: Performed By: #### L 3410.9992, L505.5000 #### [facility] [address] [place], [address] MCH (RBC) [Entitic mass] 29.6 pg Normal 27.0-32.0 [facility] Comment on above: Performed By: #### L 3410.9992, L505.5000 #### [facility] [address] [place], [address] MCHC (RBC) [Mass/Vol] 32.4 g/dL Normal 32-36 [facility] Comment on above: Performed By: #### L 3410.9992, L505.5000 #### [facility] [address] [place], [address] MCV (RBC) [Entitic vol] 91.4 fL Normal 80-94 W [facility] Comment on above: Performed By: #### L 3410.9992, L505.5000 #### [facility] [address] [place], [address] Monocytes/100 WBC (Bld) 9.9 % Normal 0-10 W [facility] Comment on above: Performed By: #### L 3410.9992, L505.5000 #### [facility] [address] [place], [address] Neutrophils/100 WBC (Bld) 74.3 % High 47-70 [facility] Comment on above: Performed By: #### L 3410.9992, L505.5000 #### [facility] [address] [place], [address] Nucleated RBC (Bld) [#/Vol] 0 10*3/uL Normal 0-5 [facility] Comment on above: Performed By: #### L 3410.9992, L505.5000 #### [facility] [address] [place], [address] Platelet mean volume (Bld) [Entitic vol] 12.3 fL High 6.2-12.0 [facility] Comment on above: Performed By: #### L 3410.9992, L505.5000 #### [facility] [address] [place], [address] Platelets (Bld) [#/Vol] 169 10*3/uL Normal 150-450 [facility] Comment on above: Performed By: #### L 3410.9992, L505.5000 #### [facility] [address] [place], [address] RBC (Bld) [#/Vol] 4.09 10*6/uL Low 4.6-6.2 [facility] Comment on above: Performed By: #### L 3410.9992, L505.5000 #### [facility] [address] [place], [address] RDW SD 47.4 fl High 35.1-43.9 [facility] Comment on above: Performed By: #### L 3410.9992, L505.5000 #### [facility] [address] [place], [address] WBC (Bld) [#/Vol] 12.4 10*3/uL High 4.4-11.0 [facility] Comment on above: Performed By: #### L 3410.9992, L505.5000 #### [facility] [address] [place], [address] Eosinophil percentageOrdered By: Marycarmen Rodriguez on 09-29-2024 Eosinophils/100 WBC (Bld) 0.7 % 0-5 [facility] Erythrocyte distribution wid th ratioOrdered By: Marycarmen Rodriguez on 09-29-2024 Erythrocyte distribution width (RBC) [Ratio] 14.2 % 11.6-14.6 [facility] Erythrocyte distribution wid th standard deviationOrdered By: Marycarmen Rodriguez on 09-29-2024 Erythrocyte distribution width (RBC) [Ratio] 47.4 fl High 35.1-43.9 [facility] Ferritinon 09-29-2024 Ferritin [Mass/Vol] 454 ng/mL High 37-417 [facility] Comment on above: Performed By: #### L 3410.9992, L505.5000 #### [facility] [address] [place], [address] Hematocrit Auto (Bld) [Volum e fraction]Ordered By: Marycarmen Rodriguez on 09-29-2024 Hematocrit (Bld) [Volume fraction] 37.4 % Low 40-54 [facility] Hemoglobin measurementOrdere d By: Marycarmen Rodriguez on 09-29-2024 Hemoglobin (Bld) [Mass/Vol] 12.1 g/dL Low 13.0-16.5 [facility] Immature granulocytes/100 WB C Auto (Bld)Ordered By: Marycarmen Rodriguez on 09-29-2024 Immature granulocytes/100 WBC (Bld) 3.600 % High 0.0-0.9 [facility] Comment on above: IG% - Immature Granu locytes (promyelocytes, myelocytes and metamyelocytes) > 1% indicates that a LEFT SHIFT is Present. Ironon 09-29-2024 Iron [Mass/Vol] 80 ug/dL Normal 65-175 [facility] Comment on above: Performed By: #### L 3410.9992, L505.5000 #### [facility] [address] [place], [address] Iron measurement (mass/mass) Ordered By: Marycarmen Rodriguez on 09-29-2024 Iron (Unsp spec) [Mass/Mass] 80 ug/dL 65-175 [facility] MCV (mean corpuscular volume ) determinationOrdered By: Marycarmen Rodriguez on 09-29-2024 MCV (RBC) [Entitic vol] 91.4 fL 80-94 W [facility] Mean corpuscular hemoglobin (MCH) determinationOrdered By: Marycarmen Rodriguez on 09-29-2024 MCH (RBC) [Entitic mass] 29.6 pg 27.0-32.0 [facility] Mean corpuscular hemoglobin concentration (MCHC) determinationOrdered By: Marycarmen Rodriguez on 09-29-2024 MCHC (RBC) [Mass/Vol] 32.4 g/dL 32-36 [facility] Mean platelet volume determi nationOrdered By: Marycarmen Rodriguez on 09-29-2024 Platelet mean volume (Bld) [Entitic vol] 12.3 fL High 6.2-12.0 [facility] Monocyte percentageOrdered B y: Marycarmen Rodriguez on 09-29-2024 Monocytes/100 WBC (Bld) 9.9 % 0-10 W [facility] Neutrophil percentageOrdered By: Marycarmen Rodriguez on 09-29-2024 Neutrophils/100 WBC (Bld) 74.3 % High 47-70 [facility] Nucleated red blood cell per centageOrdered By: Marycarmen Rodriguez on 09-29-2024 Nucleated RBC/100 WBC (Bld) [Ratio] 0 % 0-5 [facility] Platelet countOrdered By: Ap Rodriguez on 09-29-2024 Platelets (Bld) [#/Vol] 169 10*3/uL 150-450 [facility] RBC Auto (Bld) [#/Vol]Ordere d By: Marycarmen Rodriguez on 09-29-2024 RBC (Bld) [#/Vol] 4.09 10*6/uL Low 4.6-6.2 [facility] Serum or plasma ferritin ritu surement (mass/volume)Ordered By: Marycarmen Rodriguez on 09-29-2024 Ferritin [Mass/Vol] 454 ng/mL High 37-417 [facility] Vitamin B12on 09-29-2024 Cobalamin (Vitamin B12) [Mass/Vol] 766 pg/mL Normal 180-914 [facility] Comment on above: Performed By: #### L 3410.9992, L505.5000 #### [facility] [address] [place] [address], [id number] Vitamin B12 ser/plasOrdered By: Marycarmen Rodriguez on 09-29-2024 Cobalamin (Vitamin B12) [Mass/Vol] 766 pg/mL 180-914 [facility] White blood cell (WBC) count Ordered By: Marycarmen Rodriguez on 09-29-2024 WBC (Bld) [#/Vol] 12.4 10*3/uL High 4.4-11.0 [facility] Absolute lymphocyte countOrd ered By: ELIAZAR Olivas on 09-20-2024 Lymphocytes Auto (Unsp spec) [#/Vol] 1.44 10*3/uL 0.83-4.51 [facility] Absolute neutrophil countOrd ered By: ELIAZAR Olivas on 09-20-2024 Neutrophils (Bld) [#/Vol] 6.6 10*3/uL 2.0-7.7 [facility] Automated lymphocyte count a s percentage of total leukocytesOrdered By: ELIAZAR Olivas on 09-20-2024 Lymphocytes/100 WBC Auto (Unsp spec) 15.5 % Low 19-41 [facility] Basophil percentageOrdered B y: ELIAZAR Olivas on 09-20-2024 Basophils/100 WBC (Bld) 0.3 % 0-1 W [facility] CBC W/Diff, Automatedon 09-01 Absolute Lymph 1.44 X10 3/uL Normal 0.83-4.51 [facility] Comment on above: Performed By: #### L 100.0100, L503.7505 #### [facility] [address] [place], [address] Absolute Neut 6.6 X10 3/uL Normal 2.0-7.7 [facility] Comment on above: Performed By: #### L 100.0100, L503.7505 #### [facility] [address] [place], [address] Basophils/100 WBC (Bld) 0.3 % Normal 0-1 W [facility] Comment on above: Performed By: #### L 100.0100, L503.7505 #### [facility] [address] [place], [address] Eosinophils/100 WBC (Bld) 1.5 % Normal 0-5 [facility] Comment on above: Performed By: #### L 100.0100, L503.7505 #### [facility] [address] [place], [address] Erythrocyte distribution width (RBC) [Ratio] 14.1 % Normal 11.6-14.6 [facility] Comment on above: Performed By: #### L 100.0100, L503.7505 #### [facility] [address] [place], [address] Hematocrit (Bld) [Volume fraction] 34.8 % Low 40-54 [facility] Comment on above: Performed By: #### L 100.0100, L503.7505 #### [facility] [address] [place], [address] Hemoglobin (Bld) [Mass/Vol] 11.1 g/dL Low 13.0-16.5 [facility] Comment on above: Performed By: #### L 100.0100, L503.7505 #### [facility] [address] [place], [address] IG% 0.800 Normal 0.0-0.9 [facility] Comment on above: Result Comment: IG% - Immature Granulocytes (promyelocytes, myelocytes and metamyelocytes) > 1% indicates that a LEFT SHIFT is Present. Performed By: #### L 100.0100, L503.7505 #### [facility] [address] [place], [address] Lymphocytes/100 WBC (Bld) 15.5 % Low 19-41 [facility] Comment on above: Performed By: #### L 100.0100, L503.7505 #### [facility] [address] [place], [address] MCH (RBC) [Entitic mass] 29.4 pg Normal 27.0-32.0 [facility] Comment on above: Performed By: #### L 100.0100, L503.7505 #### [facility] [address] [place], [address] MCHC (RBC) [Mass/Vol] 31.9 g/dL Low 32-36 [facility] Comment on above: Performed By: #### L 100.0100, L503.7505 #### [facility] [address] [place], [address] MCV (RBC) [Entitic vol] 92.1 fL Normal 80-94 W [facility] Comment on above: Performed By: #### L 100.0100, L503.7505 #### [facility] [address] [place], [address] Monocytes/100 WBC (Bld) 11.1 % High 0-10 W [facility] Comment on above: Performed By: #### L 100.0100, L503.7505 #### [facility] [address] [place], [address] Neutrophils/100 WBC (Bld) 70.8 % High 47-70 [facility] Comment on above: Performed By: #### L 100.0100, L503.7505 #### [facility] [address] [place], [address] Nucleated RBC (Bld) [#/Vol] 0 10*3/uL Normal 0-5 [facility] Comment on above: Performed By: #### L 100.0100, L503.7505 #### [facility] [address] [place], [address] Platelet mean volume (Bld) [Entitic vol] 12.6 fL High 6.2-12.0 [facility] Comment on above: Performed By: #### L 100.0100, L503.7505 #### [facility] [address] [place], [address] Platelets (Bld) [#/Vol] 166 10*3/uL Normal 150-450 [facility] Comment on above: Performed By: #### L 100.0100, L503.7505 #### [facility] [address] [place], [address] RBC (Bld) [#/Vol] 3.78 10*6/uL Low 4.6-6.2 [facility] Comment on above: Performed By: #### L 100.0100, L503.7505 #### [facility] [address] [place], [address] RDW SD 48.0 fl High 35.1-43.9 [facility] Comment on above: Performed By: #### L 100.0100, L503.7505 #### [facility] [address] [place], [address] WBC (Bld) [#/Vol] 9.3 10*3/uL Normal 4.4-11.0 [facility] Comment on above: Performed By: #### L 100.0100, L5.5 #### [facility] [address] [place], [address] Eosinophil percentageOrdered By: ELIAZAR Olivas on 09-20-2024 Eosinophils/100 WBC (Bld) 1.5 % 0-5 [facility] Erythrocyte distribution wid th ratioOrdered By: ELIAZAR Olivas on 09-20-2024 Erythrocyte distribution width (RBC) [Ratio] 14.1 % 11.6-14.6 [facility] Erythrocyte distribution wid th standard deviationOrdered By: ELIAZAR Olivas on 09-20-2024 Erythrocyte distribution width (RBC) [Ratio] 48.0 fl High 35.1-43.9 [facility] Hematocrit Auto (Bld) [Volum e fraction]Ordered By: ELIAZAR Olivas on 09-20-2024 Hematocrit (Bld) [Volume fraction] 34.8 % Low 40-54 [facility] Hemoglobin measurementOrdere d By: ELIAZAR Olivas on 09-20-2024 Hemoglobin (Bld) [Mass/Vol] 11.1 g/dL Low 13.0-16.5 [facility] Immature granulocytes/100 WB C Auto (Bld)Ordered By: ELIAZAR Olivas on 09-20-2024 Immature granulocytes/100 WBC (Bld) 0.800 % 0.0-0.9 [facility] Comment on above: IG% - Immature Granu locytes (promyelocytes, myelocytes and metamyelocytes) > 1% indicates that a LEFT SHIFT is Present. L503.7505on 09-20-2024 Natriuretic peptide B (Bld) [Mass/Vol] 84 pg/mL Normal <=1800 [facility] Comment on above: Result Comment: Hear t Failure Unlikely: < 300 pg/mL Heart Failure Likely < 50 Years: > 450 pg/mL 50-75 Years: > 900 pg/mL >75 Years: > 1800 pg/mL Performed By: #### L 100.0100, L503.7505 #### [facility] [address] [place], [address] MCV (mean corpuscular volume ) determinationOrdered By: ELIAZAR Olivas on 09-20-2024 MCV (RBC) [Entitic vol] 92.1 fL 80-94 W [facility] Mean corpuscular hemoglobin (MCH) determinationOrdered By: ELIAZAR Olivas on 09-20-2024 MCH (RBC) [Entitic mass] 29.4 pg 27.0-32.0 [facility] Mean corpuscular hemoglobin concentration (MCHC) determinationOrdered By: ELIAZAR Olivas on 09-20-2024 MCHC (RBC) [Mass/Vol] 31.9 g/dL Low 32-36 [facility] Mean platelet volume determi nationOrdered By: ELIAZAR Olivas on 09-20-2024 Platelet mean volume (Bld) [Entitic vol] 12.6 fL High 6.2-12.0 [facility] Monocyte percentageOrdered B y: ELIAZAR Olivas on 09-20-2024 Monocytes/100 WBC (Bld) 11.1 % High 0-10 W [facility] Natriuretic peptide.B prohor efrem N-Terminal [Mass/volume] in Serum or PlasmaOrdered By: ELIAZAR Olivas on 09-20-2024 Natriuretic peptide.B prohormone N-Terminal [Mass/Vol] 84 pg/mL <1800 [facility] Comment on above: Heart Failure Unlike ly: < 300 pg/mLHeart Failure Likely< 50 Years: > 450 pg/mL50-75 Years: > 900 pg/mL>75 Years: > 1800 pg/mL Neutrophil percentageOrdered By: ELIAZAR Olivas on 09-20-2024 Neutrophils/100 WBC (Bld) 70.8 % High 47-70 [facility] Nucleated red blood cell per centageOrdered By: ELIAZAR Olivas on 09-20-2024 Nucleated RBC/100 WBC (Bld) [Ratio] 0 % 0-5 [facility] Platelet countOrdered By: ELIAZAR Olivas on 09-20-2024 Platelets (Bld) [#/Vol] 166 10*3/uL 150-450 [facility] Pulmonary Visit Reporton Pulmonary Visit Report [facility] [place] [address] [place] [address] OFFICE VISIT Date of Service: 09/20/24 MR#: [id number] Acct: [id number] Name: ERIBERTO RICO Rep #: [id number] : 1945 Provider: Maren Olivas NP Age/Sex: 79/M Location[place] [facility] [place] Status: Signed Assessment and Plan Assessment [...] quitting comp (more content not included)... Normal [facility] RBC Auto (Bld) [#/Vol]Ordere d By: ELIAZAR Olivas on 09-20-2024 RBC (Bld) [#/Vol] 3.78 10*6/uL Low 4.6-6.2 [facility] White blood cell (WBC) count Ordered By: ELIAZAR Olivas on 09-20-2024 WBC (Bld) [#/Vol] 9.3 10*3/uL 4.4-11.0 [facility] 6 Minute Walk Teston 025 6 Minute Walk Test y [facility]Neurology [address] [place] [address] MR#: [id number] Acct: [id number] Name: ERIBERTO RICO Rep #: [id number] : 1945 78 From: [facility] [place] DO Referring Dr: Marni Horn 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 Zen East DO Signed Normal [facility] Pulmonary Visit Reporton Pulmonary Visit Report [facility] [place] [address] [place] [address] OFFICE VISIT Date of Service: 07/03/24 MR#: [id number] Acct: [id number] Name: ERIBERTO RICO Rep #: [id number] : 1945 Provider: YRN Horn Age/Sex: 78/M Location: [facility] [place] Status: Signed Assessment and Plan Assessment [...] nocturia. Compli (more content not included)... Normal [facility] BUN/creatinine ratioOrdered By: Marycarmen Rodriguez on 06-30-2024 Urea nitrogen/Creatinine [Mass ratio] 17.4 mg/mg - [facility] Basic Metabolic Profile (BMP )on 06-30-2024 Anion gap [Moles/Vol] 11 mmol/L Normal 09-14 [facility] Comment on above: Performed By: #### L 3410.9992, L505.5000 #### [facility] [place], [place], [address] BUN/CRE 17.4 RATIO Normal 02-19 [facility] Comment on above: Performed By: #### L 3410.9992, L505.5000 #### [facility] [address] [place], [address] Calcium [Mass/Vol] 9.7 mg/dL Normal 7.6-11.0 [facility] Comment on above: Performed By: #### L 3410.9992, L505.5000 #### [facility] [address] [place], [address] Chloride [Moles/Vol] 105 mmol/L Normal 96-108 [facility] Comment on above: Performed By: #### L 3410.9992, L505.5000 #### [facility] [address] [place], [address] CO2 [Moles/Vol] 25.3 mmol/L Normal 22.0-29.0 [facility] Comment on above: Performed By: #### L 3410.9992, L505.5000 #### [facility] [address] [place], [address] Creatinine [Mass/Vol] 1.80 mg/dL High 0.70-1.20 [facility] Comment on above: Performed By: #### L 3410.9992, L505.5000 #### [facility] [address] [place], [address] GFR/1.73 sq M.predicted among non-blacks MDRD (S/P/Bld) [Vol rate/Area] 38 mL/min/{1.73_m2} Low >60 [facility] Comment on above: Result Comment: mL/m in/1.73m2 CKD-EPI Creatinine Equation (2020) Performed By: #### L 3410.9992, L505.5000 #### [facility] [address] [place], [address] Glucose [Mass/Vol] 112 mg/dL High 70-99 [facility] Comment on above: Performed By: #### L 3410.9992, L505.5000 #### [facility] [address] [place], [address] Potassium [Moles/Vol] 4.8 mmol/L Normal 3.3-5.1 [facility] Comment on above: Performed By: #### L 3410.9992, L505.5000 #### [facility] [address] [place], [address] Sodium [Moles/Vol] 141 mmol/L Normal 133-145 [facility] Comment on above: Performed By: #### L 3410.9992, L505.5000 #### [facility] [address] [place], [address] Urea nitrogen [Mass/Vol] 31 mg/dL High 4-19 [facility] Comment on above: Performed By: #### L 3410.9992, L505.5000 #### [facility] [address] [place], [address] Carbon dioxide measurementOr dered By: Marycarmen Rodriguez on 06-30-2024 CO2 [Moles/Vol] 25.3 mmol/L 22.0-29.0 [facility] Chloride measurementOrdered By: Marycarmen Rodriguez on 06-30-2024 Chloride [Moles/Vol] 105 mmol/L 96-108 [facility] GFR/1.73 sq M.predicted ana lilia g non-blacks MDRD (S/P/Bld) [Vol rate/Area]Ordered By: Marycarmen Rodriguez on 06-30-2024 Estimated GFR (MDRD) Non-Af Amer 38 Low >60 [facility] Comment on above: mL/min/1.73m2 CKD-EP I Creatinine Equation (2020) Glomerular filtration rate ( GFR) estimation/1.73 sq m using serum, plasma, or whole bOrdered By: Marycarmen Rodriguez on 06-30-2024 GFR/1.73 sq M.predicted among non-blacks MDRD (S/P/Bld) [Vol rate/Area] 38 mL/min/{1.73_m2} Low >60 [facility] Comment on above: mL/min/1.73m2 CKD-EP I Creatinine Equation (2020) Serum creatinine measurement (mass/volume)Ordered By: Marycarmen Rodriguez on 06-30-2024 Creatinine [Mass/Vol] 1.80 mg/dL High 0.70-1.20 [facility] Serum glucose measurement (m ass/volume)Ordered By: Marycarmen Rodriguez on 06-30-2024 Glucose [Mass/Vol] 112 mg/dL High 70-99 [facility] Serum or plasma anion gap de termination (moles/volume)Ordered By: Marycarmen Rodriguez on 06-30-2024 Anion gap [Moles/Vol] 11 mmol/L 5-15 [facility] Serum or plasma calcium francine urement (mass/volume)Ordered By: Marycarmen Rodriguez on 06-30-2024 Calcium [Mass/Vol] 9.7 mg/dL 7.6-11.0 [facility] Serum or plasma potassium me asurementOrdered By: Marycarmen Rodriguez on 06-30-2024 Potassium [Moles/Vol] 4.8 mmol/L 3.3-5.1 [facility] Serum or plasma sodium measu rement (moles/volume)Ordered By: Marycarmen Rodriguez on 06-30-2024 Sodium [Moles/Vol] 141 mmol/L 133-145 [facility] Serum or plasma urea nitroge n measurement (mass/volume)Ordered By: Marycarmen Rodriguez on 06-30-2024 Urea nitrogen [Mass/Vol] 31 mg/dL High 4-19 [facility] Absolute neutrophil countOrd ered By: Gustabo Pérez on 04-17-2024 Neutrophils (Bld) [#/Vol] 6.0 10*3/uL 2.0-7.7 [facility] BNP (brain natriuretic pepti de measurement)Ordered By: Gustabo Pérez on 04-17-2024 Natriuretic peptide B (Bld) [Mass/Vol] 37.2 pg/mL 0-100 [facility] BNP,B-Type NATRIURETIC PEPTI Sharon 04-17-2024 Natriuretic peptide B (Bld) [Mass/Vol] 37.2 pg/mL Normal 0-100 [facility] Comment on above: Performed By: #### L 100.0100, L503.6620, L500.2500 #### [facility] [address] [place], [address] Basic Metabolic Profile (BMP )on 04-17-2024 BUN/CRE 11.2 RATIO Normal 10-20 [facility] Comment on above: Performed By: #### L 100.0100, L503.6620, L500.2500 #### [facility] [address] [place], [address] CA,Total 9.0 mg/dL Normal 8.5-10.1 [facility] Comment on above: Performed By: #### L 100.0100, L503.6620, L500.2500 #### [facility] [address] [place], [address] Chloride [Moles/Vol] 107 mmol/L Normal 98-107 [facility] Comment on above: Performed By: #### L 100.0100, L503.6620, L500.2500 #### [facility] [address] [place], [address] CO2 [Moles/Vol] 27.0 mmol/L Normal 21.0-32.0 [facility] Comment on above: Performed By: #### L 100.0100, L503.6620, L500.2500 #### [facility] [address] [place], [address] Creatinine [Mass/Vol] 1.79 mg/dL High 0.70-1.30 [facility] Comment on above: Result Comment: The validity of the calculated GFR GFRAA in patients over 70 years has not been determined. Clinical correlation is essential. Performed By: #### L 100.0100, L503.6620, L500.2500 #### [facility] [address] [place], [address] EST GFR - AA 47 mL/min Low >60 [facility] Comment on above: Result Comment: Afri can [place] GFR Calc Performed By: #### L 100.0100, L503.6620, L500.2500 #### [facility] [address] [place], [address] GAP 4 Low 5-15 [facility] Comment on above: Performed By: #### L 100.0100, L503.6620, L500.2500 #### [facility] [address] [place], [address] GFR/1.73 sq M.predicted among non-blacks MDRD (S/P/Bld) [Vol rate/Area] 39 mL/min/{1.73_m2} Low >60 [facility] Comment on above: Result Comment: Non- GFR Calc Performed By: #### L 100.0100, L503.6620, L500.2500 #### [facility] [address] [place], [address] Glucose [Mass/Vol] 228 mg/dL High 74-106 [facility] Comment on above: Result Comment: Gluc ose result greater than or equal to 200 mg/dL suggests DIABETES MELLITUS per A.D.A. criteria. Performed By: #### L 100.0100, L503.6620, L500.2500 #### [facility] [address] [place], [address] Potassium [Moles/Vol] 4.8 mmol/L Normal 3.5-5.1 [facility] Comment on above: Performed By: #### L 100.0100, L503.6620, L500.2500 #### [facility] [address] [place], [address] Sodium [Moles/Vol] 138 mmol/L Normal 136-145 [facility] Comment on above: Performed By: #### L 100.0100, L503.6620, L500.2500 #### [facility] [address] [place], [address] Urea nitrogen [Mass/Vol] 20 mg/dL High 7-18 [facility] Comment on above: Performed By: #### L 100.0100, L503.6620, L500.2500 #### [facility] [address] [place], [address] Basophil percentageOrdered B y: Gustabo Pérez on 04-17-2024 Basophils/100 WBC (Bld) 0.5 % 0-1 W [facility] Blood urea nitrogen (BUN)/cr eatinine ratioOrdered By: Gustabo Pérez on 04-17-2024 Urea nitrogen/Creatinine [Mass ratio] 11.2 mg/mg 10- [facility] CBC W/Diff, Automatedon 04-02-2023 Absolute Lymph 1.29 X10 3/uL Normal 0.83-4.51 [facility] Comment on above: Performed By: #### L 100.0100, L503.6620, L500.2500 #### [facility] [address] [place], [address] Absolute Neut 6.0 X10 3/uL Normal 2.0-7.7 [facility] Comment on above: Performed By: #### L 100.0100, L503.6620, L500.2500 #### [facility] [address] [place], [address] Basophils/100 WBC (Bld) 0.5 % Normal 0-1 W [facility] Comment on above: Performed By: #### L 100.0100, L503.6620, L500.2500 #### [facility] [address] [place], [address] Eosinophils/100 WBC (Bld) 1.2 % Normal 0-5 [facility] Comment on above: Performed By: #### L 100.0100, L503.6620, L500.2500 #### [facility] [address] [place], [address] Erythrocyte distribution width (RBC) [Ratio] 13.9 % Normal 11.6-14.6 [facility] Comment on above: Performed By: #### L 100.0100, L503.6620, L500.2500 #### [facility] [address] [place], [address] Hematocrit (Bld) [Volume fraction] 41.0 % Normal 40-54 [facility] Comment on above: Performed By: #### L 100.0100, L503.6620, L500.2500 #### [facility] [address] [place], [address] Hemoglobin (Bld) [Mass/Vol] 13.2 g/dL Normal 13.0-16.5 [facility] Comment on above: Performed By: #### L 100.0100, L503.6620, L500.2500 #### [facility] [address] [place], [address] IG% 0.600 Normal 0.0-0.9 [facility] Comment on above: Result Comment: IG% - Immature Granulocytes (promyelocytes, myelocytes and metamyelocytes) > 1% indicates that a LEFT SHIFT is Present. Performed By: #### L 100.0100, L503.6620, L500.2500 #### [facility] [address] [place], [address] Lymphocytes/100 WBC (Bld) 15.7 % Low 19-41 [facility] Comment on above: Performed By: #### L 100.0100, L503.6620, L500.2500 #### [facility] [address] [place], [address] MCH (RBC) [Entitic mass] 29.2 pg Normal 27.0-32.0 [facility] Comment on above: Performed By: #### L 100.0100, L503.6620, L500.2500 #### [facility] [address] [place], [address] MCHC (RBC) [Mass/Vol] 32.2 g/dL Normal 32-36 [facility] Comment on above: Performed By: #### L 100.0100, L503.6620, L500.2500 #### [facility] [address] [place], [address] MCV (RBC) [Entitic vol] 90.7 fL Normal 80-94 W [facility] Comment on above: Performed By: #### L 100.0100, L503.6620, L500.2500 #### [facility] [address] [place], [address] Monocytes/100 WBC (Bld) 8.5 % Normal 0-[address] [facility] Comment on above: Performed By: #### L 100.0100, L503.6620, L500.2500 #### [facility] [address] [place], [address] Neutrophils/100 WBC (Bld) 73.5 % High 47-70 [facility] Comment on above: Performed By: #### L 100.0100, L503.6620, L500.2500 #### [facility] [address] [place], [address] Nucleated RBC (Bld) [#/Vol] 0 10*3/uL Normal 0-5 [facility] Comment on above: Performed By: #### L 100.0100, L503.6620, L500.2500 #### [facility] [address] [place], [address] Platelet mean volume (Bld) [Entitic vol] 12.3 fL High 6.2-12.0 [facility] Comment on above: Performed By: #### L 100.0100, L503.6620, L500.2500 #### [facility] [address] [place], [address] Platelets (Bld) [#/Vol] 185 10*3/uL Normal 150-450 [facility] Comment on above: Performed By: #### L 100.0100, L503.6620, L500.2500 #### [facility] [address] [place], [address] RBC (Bld) [#/Vol] 4.52 10*6/uL Low 4.6-6.2 [facility] Comment on above: Performed By: #### L 100.0100, L503.6620, L500.2500 #### [facility] [address] [place], [address] RDW SD 46.4 fl High 35.1-43.9 [facility] Comment on above: Performed By: #### L 100.0100, L503.6620, L500.2500 #### [facility] [address] [place], [address] WBC (Bld) [#/Vol] 8.2 10*3/uL Normal 4.4-11.0 [facility] Comment on above: Performed By: #### L 100.0100, L503.6620, L500.2500 #### [facility] [address] [place], [address] Carbon dioxide measurementOr dered By: Gustabo Pérez on 04-17-2024 CO2 [Moles/Vol] 27.0 mmol/L 21.0-32.0 [facility] Cardiology Visit Reporton Cardiology Visit Report [facility] [address] [place] [address] OFFICE VISIT Date of Service: 04/17/24 MR#: [id number] Acct: [id number] Name: ERIBERTO RICO Rep #: [id number] : 1945 Provider: YRN arvizu Age/Sex: 78/M Location: [facility] [place] Status: Signed HPI HPI History of Present [...] air Intake Visit Reasons: 4 W FU Clinical Research Administrator Required: No Accompanied by: Self Is patient [...] D3) 25 25 mcg PO DAILY 09/16/21 04/17/24 History mcg (1,000 unit) tablet [...] tablet 650 mg PO Q6H PRN Pain -02/0910/12/23 04/17/24 History spironolactone 50 mg tablet 50 [...] (chronic ob (more content not included)... Normal [facility] Chloride measurementOrdered By: Gustabo Pérez on 04-17-2024 Chloride [Moles/Vol] 107 mmol/L 98-107 [facility] Eosinophil percentageOrdered By: Gustabo Pérez on 04-17-2024 Eosinophils/100 WBC (Bld) 1.2 % 0-5 [facility] Erythrocyte distribution wid th ratioOrdered By: Gustabo Pérez on 04-17-2024 Erythrocyte distribution width (RBC) [Ratio] 13.9 % 11.6-14.6 [facility] Erythrocyte distribution wid th standard deviationOrdered By: Gustabo Pérez on 04-17-2024 Erythrocyte distribution width (RBC) [Entitic vol] 46.4 fL High 35.1-43.9 [facility] Estimated glomerular filtrat ion rate (GFR) AmericanOrdered By: Gustaob Pérez on 04-17-2024 Estimated GFR (MDRD) Amer 47 mL/min Low >60 [facility] Comment on above: GFR Calc Glomerular filtration rate ( GFR) estimationOrdered By: Gustabo Pérez on 04-17-2024 Estimated GFR (MDRD) Non-Af Amer 39 mL/min Low >60 [facility] Comment on above: Non- GFR Calc Glucose measurementOrdered B y: Gustabo Pérez on 04-17-2024 Glucose [Mass/Vol] 228 mg/dL High 74-106 [facility] Comment on above: Glucose result great er than or equal to 200 mg/dLsuggests DIABETES MELLITUS per A.D.A. criteria. Hematocrit Auto (Bld) [Volum e fraction]Ordered By: Gustabo Pérez on 04-17-2024 Hematocrit (Bld) [Volume fraction] 41.0 % 40-54 [facility] Hemoglobin measurementOrdere d By: Gustabo Pérez on 04-17-2024 Hemoglobin (Bld) [Mass/Vol] 13.2 g/dL 13.0-16.5 [facility] Immature granulocytes/100 WB C Auto (Bld)Ordered By: Gustabo Pérez on 04-17-2024 Immature granulocytes/100 WBC (Bld) 0.600 % 0.0-0.9 [facility] Comment on above: IG% - Immature Granu locytes (promyelocytes, myelocytes and metamyelocytes) > 1% indicates that a LEFT SHIFT is Present. Lymphocytes Auto (Unsp spec) [#/Vol]Ordered By: Gustabo Pérez on 04-17-2024 Lymphocytes (Bld) [#/Vol] 1.29 10*3/uL 0.83-4.51 [facility] Lymphocytes/100 WBC Auto (Un sp spec)Ordered By: Gustabo Pérez on 04-17-2024 Lymphocytes/100 WBC (Bld) 15.7 % Low 19-41 [facility] MCV (mean corpuscular volume ) determinationOrdered By: Gustabo Pérez on 04-17-2024 MCV (RBC) [Entitic vol] 90.7 fL 80-94 W [facility] Mean corpuscular hemoglobin (MCH) determinationOrdered By: Gustabo Pérez on 04-17-2024 MCH (RBC) [Entitic mass] 29.2 pg 27.0-32.0 [facility] Mean corpuscular hemoglobin concentration (MCHC) determinationOrdered By: Gustabo Pérez on 04-17-2024 MCHC (RBC) [Mass/Vol] 32.2 g/dL 32-36 [facility] Mean platelet volume determi nationOrdered By: Gustabo Pérez on 04-17-2024 Platelet mean volume (Bld) [Entitic vol] 12.3 fL High 6.2-12.0 [facility] Monocyte percentageOrdered B y: Gustabo Pérez on 04-17-2024 Monocytes/100 WBC (Bld) 8.5 % 0-10 W [facility] Neutrophil percentageOrdered By: Gustabo Pérez on 04-17-2024 Neutrophils/100 WBC (Bld) 73.5 % High 47-70 [facility] Nucleated red blood cell per centageOrdered By: Gustabo Pérez on 04-17-2024 Nucleated RBC/100 WBC (Bld) [Ratio] 0 % 0-5 [facility] Platelet countOrdered By: Lydia Pérez on 04-17-2024 Platelets (Bld) [#/Vol] 185 10*3/uL 150-450 [facility] Potassium measurementOrdered By: Gustabo Pérez on 04-17-2024 Potassium [Moles/Vol] 4.8 mmol/L 3.5-5.1 [facility] RBC Auto (Bld) [#/Vol]Ordere d By: Gustabo Pérez on 04-17-2024 RBC (Bld) [#/Vol] 4.52 10*6/uL Low 4.6-6.2 [facility] Serum anion gap measurementO rdered By: Gustabo Pérez on 04-17-2024 Anion gap [Moles/Vol] 4 mmol/L Low 5-15 [facility] Serum or plasma calcium francine urement (mass/volume)Ordered By: Gustabo Pérez on 04-17-2024 Calcium [Mass/Vol] 9.0 mg/dL 8.5-10.1 [facility] Serum or plasma creatinine m easurement (mass/volume)Ordered By: Gustabo Pérez on 04-17-2024 Creatinine [Mass/Vol] 1.79 mg/dL High 0.70-1.30 [facility] Comment on above: The validity of the calculated GFR & GFRAA in patients over 70 years has not been determined. Clinical correlation is essential. Serum or plasma urea nitroge n measurement (mass/volume)Ordered By: Gustabo Pérez on 04-17-2024 Urea nitrogen [Mass/Vol] 20 mg/dL High 7-18 [facility] Sodium levelOrdered By: Gustabo Pérez on 04-17-2024 Sodium [Moles/Vol] 138 mmol/L 136-145 [facility] White blood cell (WBC) count Ordered By: Gustabo Pérez on 04-17-2024 WBC (Bld) [#/Vol] 8.2 10*3/uL 4.4-11.0 [facility] Office Visit Reporton 2023 Office Visit Report [facility] [place] [address] OFFICE VISIT Date of Service: 03/27/24 MR#: [id number] Acct: [id number] Patient: ERIBERTO RICO Rep #: [id number] : 1945 Provider: Dr. Jose Hay MD Age/Sex: 78/M Location: [facility] [place] Status: Signed Intake Vital [...] applicable) CC: Dr. Marycarmen Rodriguez, DO Normal [facility] Albumin to globulin ratioOrd ered By: Jose Hay on 03-23-2024 Albumin/Globulin [Mass ratio] 1.1 {ratio} 0.9-2.4 [facility] Bilirubin, totalOrdered By: Jose Hay on 03-23-2024 Bilirubin [Mass/Vol] 2.00 mg/dL High 0.20-1.00 [facility] Comment on above: For patients on eltr ombopag therapy, use of Dimension [place] TBIL is not recommended. Blood urea nitrogen (BUN)/cr eatinine ratioOrdered By: Jose Hay on 03-23-2024 Urea nitrogen/Creatinine [Mass ratio] 18.0 mg/mg 10-20 [facility] Carbon dioxide measurementOr dered By: Jose Hay on 03-23-2024 CO2 [Moles/Vol] 28.0 mmol/L 21.0-32.0 [facility] Chloride measurementOrdered By: Jose Hay on 03-23-2024 Chloride [Moles/Vol] 104 mmol/L 98-107 [facility] Comprehensive Metabolic Prof ilon 03-23-2024 Albumin [Mass/Vol] 3.7 g/dL Normal 3.2-5.0 [facility] Comment on above: Order Comment: DR REMY ORDERED BMP AND MAGNESIUM.DR HAY ORDERED LIPID CMP TSH. RANGLE Performed By: #### L 100.0100, L503.6620, L500.2500 #### [facility] Laboratory [address] [place], [address] Albumin/Globulin [Mass ratio] 1.1 {ratio} Normal 0.9-2.4 [facility] Comment on above: Order Comment: DR REMY ORDERED BMP AND MAGNESIUM.DR HAY ORDERED LIPID CMP TSH. RANGLE Performed By: #### L 100.0100, L503.6620, L500.2500 #### [facility] [address] [place], [address] ALK P 92 U/L Normal 45-117 [facility] Comment on above: Order Comment: DR REMY ORDERED BMP AND MAGNESIUM.DR HAY ORDERED LIPID CMP TSH. RANGLE Performed By: #### L 100.0100, L503.6620, L500.2500 #### [facility] Laboratory [address] [place], [address] ALT [Catalytic activity/Vol] 52 U/L Normal 16-61 [facility] Comment on above: Order Comment: DR REMY ORDERED BMP AND MAGNESIUM.DR HAY ORDERED LIPID CMP TSH. RANGLE Performed By: #### L 100.0100, L503.6620, L500.2500 #### [facility] Laboratory [address] [place], [address] AST [Catalytic activity/Vol] 28 U/L Normal 15-37 [facility] Comment on above: Order Comment: DR REMY ORDERED BMP AND MAGNESIUM.DR HAY ORDERED LIPID CMP TSH. RANGLE Performed By: #### L 100.0100, L503.6620, L500.2500 #### [facility] [address] [place], [address] Bilirubin [Mass/Vol] 2.00 mg/dL High 0.20-1.00 [facility] Comment on above: Order Comment: DR REMY ORDERED BMP AND MAGNESIUM.DR HAY ORDERED LIPID CMP TSH. RANGLE Result Comment: For patients on eltrombopag therapy, use of Dimension [place] TBIL is not recommended. Performed By: #### L 100.0100, L503.6620, L500.2500 #### [facility] Laboratory [address] [place], [address] BUN/CRE 18.0 RATIO Normal 10-20 [facility] Comment on above: Order Comment: DR REMY ORDERED BMP AND MAGNESIUM.DR HAY ORDERED LIPID CMP TSH. RANGLE Performed By: #### L 100.0100, L503.6620, L500.2500 #### [facility] Laboratory [address] [place], [address] CA,Total 8.8 mg/dL Normal 8.5-10.1 [facility] Comment on above: Order Comment: DR REMY ORDERED BMP AND MAGNESIUM.DR HAY ORDERED LIPID CMP TSH. RANGLE Performed By: #### L 100.0100, L503.6620, L500.2500 #### [facility] [address] [place], [address] Chloride [Moles/Vol] 104 mmol/L Normal 98-107 [facility] Comment on above: Order Comment: DR REMY ORDERED BMP AND MAGNESIUM.DR HAY ORDERED LIPID CMP TSH. RANGLE Performed By: #### L 100.0100, L503.6620, L500.2500 #### [facility] [address] [place], [address] CO2 [Moles/Vol] 28.0 mmol/L Normal 21.0-32.0 [facility] Comment on above: Order Comment: DR REMY ORDERED BMP AND MAGNESIUM.DR HAY ORDERED LIPID CMP TSH. RANGLE Performed By: #### L 100.0100, L503.6620, L500.2500 #### [facility] Laboratory [address] [place], [address] Creatinine [Mass/Vol] 1.67 mg/dL High 0.70-1.30 [facility] Comment on above: Order Comment: DR REMY ORDERED BMP AND MAGNESIUM.DR HAY ORDERED LIPID CMP TSH. RANGLE Result Comment: The validity of the calculated GFR GFRAA in patients over 70 years has not been determined. Clinical correlation is essential. Performed By: #### L 100.0100, L503.6620, L500.2500 #### [facility] [address] [place], [address] EST GFR - AA 51 mL/min Low >60 [facility] Comment on above: Order Comment: DR REMY ORDERED BMP AND MAGNESIUM.DR HAY ORDERED LIPID CMP TSH. RANGLE Result Comment: Afri can [place] GFR Calc Performed By: #### L 100.0100, L503.6620, L500.2500 #### [facility] Laboratory [address] [place], [address] GAP 6 Normal 5-15 [facility] Comment on above: Order Comment: DR REMY ORDERED BMP AND MAGNESIUM.DR HAY ORDERED LIPID CMP TSH. RANGLE Performed By: #### L 100.0100, L503.6620, L500.2500 #### [facility] Laboratory [address] [place], [address] GFR/1.73 sq M.predicted among non-blacks MDRD (S/P/Bld) [Vol rate/Area] 42 mL/min/{1.73_m2} Low >60 [facility] Comment on above: Order Comment: DR REMY ORDERED BMP AND MAGNESIUM.DR HAY ORDERED LIPID CMP TSH. RANGLE Result Comment: Non- GFR Calc Performed By: #### L 100.0100, L503.6620, L500.2500 #### [facility] Laboratory [address] [place], [address] Globulin (S) [Mass/Vol] 3.3 g/dL Normal 2.2-4.[address] [facility] Comment on above: Order Comment: DR REMY ORDERED BMP AND MAGNESIUM.DR HAY ORDERED LIPID CMP TSH. RANGLE Performed By: #### L 100.0100, L503.6620, L500.2500 #### [facility] Laboratory [address] [place], [address] Glucose [Mass/Vol] 146 mg/dL High 74-106 [facility] Comment on above: Order Comment: DR REMY ORDERED BMP AND MAGNESIUM.DR HAY ORDERED LIPID CMP TSH. RANGLE Result Comment: Fast ing Glucose result greater than or equal to 126 mg/dL suggests DIABETES MELLITUS per A.D.A. criteria. Performed By: #### L 100.0100, L503.6620, L500.2500 #### [facility] Laboratory [address] [place], [address] Potassium [Moles/Vol] 4.4 mmol/L Normal 3.5-5.1 [facility] Comment on above: Order Comment: DR REMY ORDERED BMP AND MAGNESIUM.DR HAY ORDERED LIPID CMP TSH. RANGLE Performed By: #### L 100.0100, L503.6620, L500.2500 #### [facility] Laboratory [address] [place], [address] Sodium [Moles/Vol] 138 mmol/L Normal 136-145 [facility] Comment on above: Order Comment: DR REMY ORDERED BMP AND MAGNESIUM.DR HAY ORDERED LIPID CMP TSH. RANGLE Performed By: #### L 100.0100, L503.6620, L500.2500 #### [facility] Laboratory [address] [place], [address] T PROT 7.0 g/dL Normal 6.4-8.2 [facility] Comment on above: Order Comment: DR REMY ORDERED BMP AND MAGNESIUM.DR HAY ORDERED LIPID CMP TSH. RANGLE Performed By: #### L 100.0100, L503.6620, L500.2500 #### [facility] Laboratory [address] [place], [address] Urea nitrogen [Mass/Vol] 30 mg/dL High 7-18 [facility] Comment on above: Order Comment: DR REMY ORDERED BMP AND MAGNESIUM.DR HAY ORDERED LIPID CMP TSH. RANGLE Performed By: #### L 100.0100, L503.6620, L500.2500 #### [facility] Laboratory [address] [place], [address] Estimated glomerular filtrat ion rate (GFR) AmericanOrdered By: Jose Hay on 03-23-2024 Estimated GFR (MDRD) Amer 51 mL/min Low >60 [facility] Comment on above: GFR Calc Glomerular filtration rate ( GFR) estimationOrdered By: Jose Hay on 03-23-2024 Estimated GFR (MDRD) Non-Af Amer 42 mL/min Low >60 [facility] Comment on above: Non- GFR Calc Glucose measurementOrdered B y: Jose Hay on 03-23-2024 Glucose [Mass/Vol] 146 mg/dL High 74-106 [facility] Comment on above: Fasting Glucose resu lt greater than or equal to 126 mg/dL suggests DIABETES MELLITUS per A.D.A. criteria. High density lipoprotein (HD L) measurementOrdered By: Jose Hay on 03-23-2024 Cholesterol in HDL [Mass/Vol] 52 mg/dL >40 [facility] Comment on above: The drugs N-Acetylcy steine and Metamizole may falsely depress this assay. Reference Range HDL <40 mg/dL Low HDL Cholesterol HDL >or= 60 mg/dL High HDL Cholesterol Laboratory - Chemistry and C hemistry - challengeOrdered By: Jose Hay on 03-23-2024 AST [Catalytic activity/Vol] 28 U/L 15-37 [facility] Lipid Profileon 03-23-2024 Cholesterol [Mass/Vol] 158 mg/dL Normal 200 [facility] Comment on above: Order Comment: DR REMY ORDERED BMP AND MAGNESIUM.DR HAY ORDERED LIPID CMP TSH. RANGLE Result Comment: <200 mg/dL Desirable 200-240 mg/dL Borderline >240 mg/dL High Risk Performed By: #### L 100.0100, L503.6620, L500.2500 #### [facility] Laboratory [address] [place], [address] Cholesterol in HDL [Mass/Vol] 52 mg/dL Normal [facility] Comment on above: Order Comment: DR REMY ORDERED BMP AND MAGNESIUM.DR HAY ORDERED LIPID CMP TSH. RANGLE Result Comment: The drugs N-Acetylcysteine and Metamizole may falsely depress this assay. Reference Range HDL <40 mg/dL Low HDL Cholesterol HDL >or= 60 mg/dL High HDL Cholesterol Performed By: #### L 100.0100, L503.6620, L500.2500 #### [facility] Laboratory [address] [place], [address] Cholesterol in LDL [Mass/Vol] 61 mg/dL Normal 0-130 [facility] Comment on above: Order Comment: DR REMY ORDERED BMP AND MAGNESIUM.DR HAY ORDERED LIPID CMP TSH. RANGLE Performed By: #### L 100.0100, L503.6620, L500.2500 #### [facility] Laboratory [address] [place], [address] Cholesterol in VLDL [Mass/Vol] 45 mg/dL High 5-40 [facility] Comment on above: Order Comment: DR REMY ORDERED BMP AND MAGNESIUM.DR HAY ORDERED LIPID CMP TSH. RANGLE Performed By: #### L 100.0100, L503.6620, L500.2500 #### [facility] Laboratory [address] [place], [address] Triglyceride [Mass/Vol] 225 mg/dL High W [facility] Comment on above: Order Comment: DR REMY ORDERED BMP AND MAGNESIUM.DR HAY ORDERED LIPID CMP TSH. RANGLE Result Comment: The drugs N-Acetylcysteine and Metamizole may falsely depress this assay. Serum Triglycerides Reference Interval Normal <150 mg/dL Borderline high 150 - 199 mg/dL High 200 - 499 mg/dL Very High > or = 500 mg/dL Performed By: #### L 100.0100, L503.6620, L500.2500 #### [facility] Laboratory [address] [place], [address] Low density lipoprotein (LDL ) cholesterol measurementOrdered By: Jose Hay on 03-23-2024 Cholesterol in LDL [Mass/Vol] 61 mg/dL 0-130 [facility] Magnesiumon 03-23-2024 Magnesium [Mass/Vol] 2.1 mg/dL Normal 1.6-2.6 [facility] Comment on above: Order Comment: DR REMY ORDERED BMP AND MAGNESIUM.DR HAY ORDERED LIPID CMP TSH. RANGLE Performed By: #### L 100.0100, L503.6620, L500.2500 #### [facility] Laboratory [address] [place], [address] Magnesium measurementOrdered By: Jose Hay on 03-23-2024 Magnesium [Mass/Vol] 2.1 mg/dL 1.6-2.6 [facility] Potassium measurementOrdered By: Jose Hay on 03-23-2024 Potassium [Moles/Vol] 4.4 mmol/L 3.5-5.1 [facility] Serum anion gap measurementO rdered By: Jose Hay on 03-23-2024 Anion gap [Moles/Vol] 6 mmol/L 5-15 [facility] Serum globulin measurementOr dered By: Jose Hay on 03-23-2024 Globulin (S) [Mass/Vol] 3.3 g/dL 2.2-4.[address] [facility] Serum or plasma alanine guerrero otransferase (ALT) measurementOrdered By: Jose Hay on 03-23-2024 ALT [Catalytic activity/Vol] 52 U/L 16-61 [facility] Serum or plasma albumin francine urement (mass/volume)Ordered By: Jose Hay on 03-23-2024 Albumin [Mass/Vol] 3.7 g/dL 3.2-5.0 [facility] Serum or plasma alkaline bell sphatase measurementOrdered By: Jose Hay on 03-23-2024 ALP [Catalytic activity/Vol] 92 U/L 45-117 [facility] Serum or plasma calcium francine urement (mass/volume)Ordered By: Jose Hay on 03-23-2024 Calcium [Mass/Vol] 8.8 mg/dL 8.5-10.1 [facility] Serum or plasma cholesterol measurement (mass/volume)Ordered By: Jose Hay on 03-23-2024 Cholesterol [Mass/Vol] 158 mg/dL <200 [facility] Comment on above: <200 mg/dL Desirable 200-240 mg/dL Borderline >240 mg/dL High Risk Serum or plasma creatinine m easurement (mass/volume)Ordered By: Jose Hay on 03-23-2024 Creatinine [Mass/Vol] 1.67 mg/dL High 0.70-1.30 [facility] Comment on above: The validity of the calculated GFR & GFRAA in patients over 70 years has not been determined. Clinical correlation is essential. Serum or plasma urea nitroge n measurement (mass/volume)Ordered By: Jose Hay on 03-23-2024 Urea nitrogen [Mass/Vol] 30 mg/dL High 7-18 [facility] Sodium levelOrdered By: Ernst Hay on 03-23-2024 Sodium [Moles/Vol] 138 mmol/L 136-145 [facility] TSH QnOrdered By: Jose rodriguez on 03-23-2024 Thyroid Stimulating Hormone (TSH) 5.340 uIU/mL High 0.358-3.740 [facility] Thyroid Stim Hormone (TSH)on 03-23-2024 TSH 5.340 uIU/mL High 0.358-3.740 [facility] Comment on above: Order Comment: DR REMY ORDERED BMP AND MAGNESIUM.DR HAY ORDERED LIPID CMP TSH. RANGLE Performed By: #### L 100.0100, L503.6620, L500.2500 #### [facility] Laboratory [address] [place], [place], [id number] Total proteinOrdered By: Emmanuel Hay on 03-23-2024 Protein [Mass/Vol] 7.0 g/dL 6.4-8.2 [facility] Triglycerides measurementOrd ered By: Jose Hay on 03-23-2024 Triglyceride [Mass/Vol] 225 mg/dL High <199 [address] [facility] Comment on above: The drugs N-Acetylcy steine and Metamizole may falsely depress this assay.Serum Triglycerides Reference Interval Normal <150 mg/dL Borderline high 150 - 199 mg/dL High 200 - 499 mg/dL Very High > or = 500 mg/dL Very low density lipoprotein (VLDL) cholesterol measurementOrdered By: Jose Hay on 03-23-2024 VLDL Cholesterol 45 mg/dL High 5-40 [facility] Cardiology Visit Reporton Cardiology Visit Report [facility] [address] [place], [place] [address] OFFICE VISIT Date of Service: 03/20/24 MR#: [id number] Acct: [id number] Name: ERIBERTO RICO Rep #: [id number] : 1945 Provider: Dr. Jose Hay MD Age/Sex: 78/M Location: [facility] Status: Signed HPI HPI History of Present [...] 97 Intake Visit Reasons: 5 M FU Clinical Research Administrator Required: No Accompanied by: Self Is patient [...] D3) 25 25 mcg PO DAILY 09/16/21 03/20/24 History mcg (1,000 unit) tablet fluoxetine 40 mg capsule 80 mg PO DAILY DEPRESSION 90 days 05/17/22 11/18/24 History #180 caps metformin 500 mg tablet [...] (light headed, near syncope; no major injuries) [facility] Medical History Abnormal PFT Acute left-sided weakness Angina pectoris Atherosclerotic heart disease [place] coronary artery w/angina pectoris CAD (coronary artery [...] of prostatectomy (more content not included)... Normal [facility] Lipid Profileon 11-18-2023 Cholesterol [Mass/Vol] 177 mg/dL Normal 200 [facility] Comment on above: Result Comment: <200 mg/dL Desirable 200-240 mg/dL Borderline >240 mg/dL High Risk Performed By: #### L 3410.9992, L505.5000 #### [facility] Laboratory [address] [place], [address] Cholesterol in HDL [Mass/Vol] 60 mg/dL Normal [facility] Comment on above: Result Comment: The drugs N-Acetylcysteine and Metamizole may falsely depress this assay. Reference Range HDL <40 mg/dL Low HDL Cholesterol HDL >or= 60 mg/dL High HDL Cholesterol Performed By: #### L 3410.9992, L505.5000 #### [facility] Laboratory [address] [place], [address] Cholesterol in LDL [Mass/Vol] 68 mg/dL Normal 0-130 [facility] Comment on above: Performed By: #### L 3410.9992, L505.5000 #### [facility] Laboratory [address] [place], [address] Cholesterol in VLDL [Mass/Vol] 49 mg/dL High 5-40 [facility] Comment on above: Performed By: #### L 3410.9992, L505.5000 #### [facility] Laboratory [address] [place], [address] Triglyceride [Mass/Vol] 244 mg/dL High W [facility] Comment on above: Result Comment: The drugs N-Acetylcysteine and Metamizole may falsely depress this assay. Serum Triglycerides Reference Interval Normal <150 mg/dL Borderline high 150 - 199 mg/dL High 200 - 499 mg/dL Very High > or = 500 mg/dL Performed By: #### L 3410.9992, L505.5000 #### [facility] [address] [place], [address] Liver Profileon 11-18-2023 Albumin [Mass/Vol] 3.5 g/dL Normal 3.2-5.0 [facility] Comment on above: Performed By: #### L 3410.9992, L505.5000 #### [facility] Laboratory [address] [place], [address] ALK P 110 U/L Normal 45-117 [facility] Comment on above: Performed By: #### L 3410.9992, L505.5000 #### [facility] Laboratory [address] [place], [address] ALT [Catalytic activity/Vol] 30 U/L Normal 16-61 [facility] Comment on above: Performed By: #### L 3410.9992, L505.5000 #### [facility] Laboratory [address] [place], [address] AST [Catalytic activity/Vol] 19 U/L Normal 15-37 [facility] Comment on above: Performed By: #### L 3410.9992, L505.5000 #### [facility] Laboratory [address] [place], [address] Bilirubin [Mass/Vol] 1.00 mg/dL Normal 0.20-1.00 [facility] Comment on above: Result Comment: For patients on eltrombopag therapy, use of Dimension [place] TBIL is not recommended. Performed By: #### L 3410.9992, L505.5000 #### [facility] Laboratory [address] [place], [address] Bilirubin.direct [Mass/Vol] 0.23 mg/dL Normal 0.00-0.30 [facility] Comment on above: Performed By: #### L 3410.9992, L505.5000 #### [facility] Laboratory [address] [place], [address] Globulin (S) [Mass/Vol] 3.5 g/dL Normal 2.2-4.[address] [facility] Comment on above: Performed By: #### L 3410.9992, L505.5000 #### [facility] [address] [place], [address] T PROT 7.0 g/dL Normal 6.4-8.2 [facility] Comment on above: Performed By: #### L 3410.9992, L505.5000 #### [facility] [address] [place], [address] Basophil percentageOrdered B y: Marycarmen Rodriguez on 05-07-2023 Chloride [Moles/Vol] 103 mmol/L 98-107 [facility] Glucose [Mass/Vol] 172 mg/dL 74-106 [facility] Comment on above: Fasting Glucose resu lt greater than or equal to 126 mg/dL suggests DIABETES MELLITUS per A.D.A. criteria. Potassium [Moles/Vol] 3.7 mmol/L 3.5-5.1 [facility] Sodium [Moles/Vol] 138 mmol/L 136-145 [facility] Laboratory - Chemistry and C hemistry - challengeOrdered By: Marycarmen Rodriguez on 05-07-2023 CO2 [Moles/Vol] 27.0 mmol/L 21.0-32.0 [facility] Urea nitrogen/Creatinine [Mass ratio] 13.9 mg/mg 10-20 [facility] No Panel InformationOrdered By: Marycarmen Rodriguez on 05-07-2023 Estimated GFR (MDRD) Amer 74 mL/min >60 [facility] Comment on above: GFR Calc Estimated GFR (MDRD) Non-Af Amer 61 mL/min >60 [facility] Comment on above: Non- GFR Calc Serum or plasma calcium francine urement (mass/volume)Ordered By: Marycarmen Rodriguez on 05-07-2023 Calcium [Mass/Vol] 8.6 mg/dL 8.5-10.1 [facility] Serum or plasma creatinine m easurement (mass/volume)Ordered By: Marycarmen Rodriguez on 05-07-2023 Creatinine [Mass/Vol] 1.22 mg/dL 0.70-1.30 [facility] Comment on above: The validity of the calculated GFR & GFRAA in patients over 70 years has not been determined. Clinical correlation is essential. Serum or plasma urea nitroge n measurement (mass/volume)Ordered By: Marycarmen Rodriguez on 05-07-2023 Urea nitrogen [Mass/Vol] 17 mg/dL 7- [facility] Thin prep Papanicolaou smear with manual screeningOrdered By: Marycarmen Rodriguez on 05-07-2023 Thin prep Papanicolaou smear with manual screening 8 5-15 [facility] Basophil percentageOrdered B y: Jsoe Hay on 12-15-2022 Chloride [Moles/Vol] 110 mmol/L 98-107 [facility] Glucose [Mass/Vol] 121 mg/dL 74-106 [facility] Comment on above: Fasting Glucose resu lt from 100 to 125 mg/dL suggests IMPAIRED HOMEOSTASIS per A.D.A. criteria. Potassium [Moles/Vol] 4.0 mmol/L 3.5-5.1 [facility] Sodium [Moles/Vol] 139 mmol/L 136-145 [facility] WBC (Bld) [#/Vol] 7.3 10*3/uL 4.4-11.0 [facility] Blood erythrocytes count (nu mber/volume)Ordered By: Jose Hay on 12-15-2022 RBC (Bld) [#/Vol] 5.18 10*6/uL 4.6-6.2 [facility] Blood hemoglobin measurement (mass/volume)Ordered By: Jose Hay on 12-15-2022 Hemoglobin (Bld) [Mass/Vol] 15.2 g/dL 13.0-16.5 [facility] Blood platelet mean volumeOr dered By: Jose Hay on 12-15-2022 Platelet mean volume (Bld) [Entitic vol] 12.2 fL 6.2-12.0 [facility] Determination of erythrocyte mean corpuscular volume (MCV)Ordered By: Jose Hay on 12-15-2022 MCV (RBC) [Entitic vol] 90.2 fL 80-94 [facility] Hematocrit Auto (Bld) [Volum e fraction]Ordered By: Jose Hay on 12-15-2022 Hematocrit (Bld) [Volume fraction] 46.7 % 40-54 [facility] Laboratory - Chemistry and C hemistry - challengeOrdered By: Josejina Hay on 12-15-2022 CO2 [Moles/Vol] 23.0 mmol/L 21.0-32.0 [facility] Natriuretic peptide B (Bld) [Mass/Vol] 38.1 pg/mL 0-100 [facility] Urea nitrogen/Creatinine [Mass ratio] 13.5 mg/mg 10-20 [facility] Laboratory - Hematology and Cell countsOrdered By: Jose Hay on 12-15-2022 Erythrocyte distribution width (RBC) [Entitic vol] 47.5 fL 35.1-43.9 [facility] Erythrocyte distribution width (RBC) [Ratio] 14.4 % 11.6-14.6 [facility] MCH (RBC) [Entitic mass] 29.3 pg 27.0-32.0 [facility] MCHC Auto (RBC) [Mass/Vol]Or dered By: Jose Hay on 12-15-2022 MCHC (RBC) [Mass/Vol] 32.5 g/dL 32-36 [facility] No Panel InformationOrdered By: Jose Hay on 12-15-2022 Estimated GFR (MDRD) Amer 83 mL/min >60 [facility] Comment on above: GFR Calc Estimated GFR (MDRD) Non-Af Amer 68 mL/min >60 [facility] Comment on above: Non- GFR Calc Platelets bldOrdered By: Emmanuel Hay on 12-15-2022 Platelets (Bld) [#/Vol] 143 10*3/uL 150-450 [facility] Serum or plasma calcium francine urement (mass/volume)Ordered By: Jose Hay on 12-15-2022 Calcium [Mass/Vol] 8.8 mg/dL 8.5-10.1 [facility] Serum or plasma creatinine m easurement (mass/volume)Ordered By: Jose Hay on 12-15-2022 Creatinine [Mass/Vol] 1.11 mg/dL 0.70-1.30 [facility] Comment on above: The validity of the calculated GFR & GFRAA in patients over 70 years has not been determined. Clinical correlation is essential. Serum or plasma urea nitroge n measurement (mass/volume)Ordered By: Jose Hay on 12-15-2022 Urea nitrogen [Mass/Vol] 15 mg/dL 7-18 [facility] Thin prep Papanicolaou smear with manual screeningOrdered By: Jose Hay on 12-15-2022 Thin prep Papanicolaou smear with manual screening 6 5-15 [facility] Absolute lymphocyte countOrd ered By: Luz Elena Mckeon on 10-13-2022 Lymphocytes Auto (Unsp spec) [#/Vol] 1.21 10*3/uL 0.83-4.51 [facility] Basophil percentageOrdered B y: Luz Elena Mckeon on 10-13-2022 Basophils/100 WBC (Bld) 0.5 % 0-1 [facility] Chloride [Moles/Vol] 106 mmol/L 98-107 [facility] Eosinophils/100 WBC (Bld) 1.4 % 0-5 [facility] Glucose [Mass/Vol] 277 mg/dL 74-106 [facility] Comment on above: Glucose result great er than or equal to 200 mg/dLsuggests DIABETES MELLITUS per A.D.A. criteria. Neutrophils (Bld) [#/Vol] 4.0 10*3/uL 2.0-7.7 [facility] Neutrophils/100 WBC (Bld) 68.5 % 47-70 [facility] Potassium [Moles/Vol] 4.1 mmol/L 3.5-5.1 [facility] Sodium [Moles/Vol] 139 mmol/L 136-145 [facility] WBC (Bld) [#/Vol] 5.8 10*3/uL 4.4-11.0 [facility] Blood erythrocytes count (nu mber/volume)Ordered By: Luz Elena Mckeon on 10-13-2022 RBC (Bld) [#/Vol] 4.66 10*6/uL 4.6-6.2 [facility] Blood hemoglobin measurement (mass/volume)Ordered By: Luz Elena Mckeon on 10-13-2022 Hemoglobin (Bld) [Mass/Vol] 13.6 g/dL 13.0-16.5 [facility] Blood lymphocytes/100 leukoc ytesOrdered By: Luz Elena Mckeon on 10-13-2022 Lymphocytes/100 WBC (Bld) 20.7 % 19-41 [facility] Blood monocytes/100 leukocyt esOrdered By: Luz Elena Mckeon on 10-13-2022 Monocytes/100 WBC (Bld) 8.6 % 0-10 [facility] Blood platelet mean volumeOr dered By: Luz Elena Mckeon on 10-13-2022 Platelet mean volume (Bld) [Entitic vol] 12.6 fL 6.2-12.0 [facility] Determination of erythrocyte mean corpuscular volume (MCV)Ordered By: Luz Elena Mckeon on 10-13-2022 MCV (RBC) [Entitic vol] 89.5 fL 80-94 [facility] Hematocrit Auto (Bld) [Volum e fraction]Ordered By: Luz Elena Mckeon on 10-13-2022 Hematocrit (Bld) [Volume fraction] 41.7 % 40-54 [facility] Laboratory - Chemistry and C hemistry - challengeOrdered By: Luz Elena Mckeon on 10-13-2022 CO2 [Moles/Vol] 27.0 mmol/L 21.0-32.0 [facility] Free T4 [Mass/Vol] 0.77 ng/dL 0.76-1.46 [facility] Magnesium [Mass/Vol] 2.1 mg/dL 1.6-2.6 [facility] Natriuretic peptide B (Bld) [Mass/Vol] 47.2 pg/mL 0-100 [facility] Urea nitrogen/Creatinine [Mass ratio] 17.2 mg/mg 10-20 [facility] Laboratory - Hematology and Cell countsOrdered By: Luz Elena Mckeon on 10-13-2022 Erythrocyte distribution width (RBC) [Entitic vol] 46.1 fL 35.1-43.9 [facility] Erythrocyte distribution width (RBC) [Ratio] 14.1 % 11.6-14.6 [facility] Immature granulocytes/100 WBC (Bld) 0.300 % 0.0-0.9 [facility] Comment on above: IG% - Immature Granu locytes (promyelocytes, myelocytes and metamyelocytes) > 1% indicates that a LEFT SHIFT is Present. MCH (RBC) [Entitic mass] 29.2 pg 27.0-32.0 [facility] Nucleated RBC/100 WBC (Bld) [Ratio] 0 % 0-5 [facility] MCHC Auto (RBC) [Mass/Vol]Or dered By: Luz Elena Mckeon on 10-13-2022 MCHC (RBC) [Mass/Vol] 32.6 g/dL 32-36 [facility] No Panel InformationOrdered By: Luz Elena Mckeon on 10-13-2022 Estimated GFR (MDRD) Amer 61 mL/min >60 [facility] Comment on above: GFR Calc Estimated GFR (MDRD) Non-Af Amer 50 mL/min >60 [facility] Comment on above: Non- GFR Calc Free Triiodothyronine (T3) pg/dL 2.7 pg/mL 2.18-3.98 [facility] Thyroid Stimulating Hormone (TSH) 4.12 uIU/mL 0.358-3.74 [facility] Platelets bldOrdered By: Loco Mckeon on 10-13-2022 Platelets (Bld) [#/Vol] 126 10*3/uL 150-450 [facility] Serum or plasma calcium francine urement (mass/volume)Ordered By: Luz Elena Mckeon on 10-13-2022 Calcium [Mass/Vol] 8.5 mg/dL 8.5-10.1 [facility] Serum or plasma creatinine m easurement (mass/volume)Ordered By: Luz Elena Mckeon on 10-13-2022 Creatinine [Mass/Vol] 1.45 mg/dL 0.70-1.30 [facility] Comment on above: The validity of the calculated GFR & GFRAA in patients over 70 years has not been determined. Clinical correlation is essential. Serum or plasma urea nitroge n measurement (mass/volume)Ordered By: Luz Elena Mckeon on 10-13-2022 Urea nitrogen [Mass/Vol] 25 mg/dL 7-18 [facility] Thin prep Papanicolaou smear with manual screeningOrdered By: Luz Elena Mckeon on 10-13-2022 Thin prep Papanicolaou smear with manual screening 6 5-15 [facility] COVID-19 virus antigen assay Ordered By: Shaan Santos on 09-21-2022 SARS-CoV-2 (COVID-19) Ag IA.rapid Ql (Resp) [facility] COVID-19 virus antigen assay Ordered By: Dr. Santos on 09-21-2022 SARS-CoV-2 (COVID-19) Ag IA.rapid Ql (Resp) [facility] Glucose Glucometer (BldC) [M ass/Vol]Ordered By: Dr. Santos on 09-21-2022 Glucose [Mass/Vol] 193 mg/dL 74-106 [facility] Comment on above: MANAGEMENT OF PATIEN T CARE PER NURSING PROTOCOL Absolute lymphocyte countOrd ered By: Dr. Leo on 09-18-2022 Lymphocytes Auto (Unsp spec) [#/Vol] 1.83 10*3/uL 0.83-4.51 [facility] Basophil percentageOrdered B y: Dr. Leo on 09-18-2022 Basophils/100 WBC (Bld) 0.3 % 0-1 [facility] Bilirubin [Mass/Vol] 1.20 mg/dL 0.20-1.00 [facility] Comment on above: For patients on eltr ombopag therapy, use of Dimension [place] TBIL is not recommended. Chloride [Moles/Vol] 108 mmol/L 98-107 [facility] Cholesterol [Mass/Vol] 114 mg/dL <200 [facility] Comment on above: <200 mg/dL Desirable 200-240 mg/dL Borderline >240 mg/dL High Risk Eosinophils/100 WBC (Bld) 2.0 % 0-5 [facility] Glucose [Mass/Vol] 87 mg/dL 74-106 [facility] Neutrophils (Bld) [#/Vol] 4.3 10*3/uL 2.0-7.7 [facility] Neutrophils/100 WBC (Bld) 60.9 % 47-70 [facility] Potassium [Moles/Vol] 3.5 mmol/L 3.5-5.1 [facility] Protein [Mass/Vol] 5.9 g/dL 6.4-8.2 [facility] Sodium [Moles/Vol] 142 mmol/L 136-145 [facility] Triglyceride [Mass/Vol] 174 mg/dL <199 [facility] Comment on above: The drugs N-Acetylcy steine and Metamizole may falsely depress this assay.Serum Triglycerides Reference Interval Normal <150 mg/dL Borderline high 150 - 199 mg/dL High 200 - 499 mg/dL Very High > or = 500 mg/dL WBC (Bld) [#/Vol] 7.0 10*3/uL 4.4-11.0 [facility] Blood erythrocytes count (nu mber/volume)Ordered By: Dr. Leo on 09-18-2022 RBC (Bld) [#/Vol] 4.64 10*6/uL 4.6-6.2 [facility] Blood hemoglobin measurement (mass/volume)Ordered By: Dr. Leo on 09-18-2022 Hemoglobin (Bld) [Mass/Vol] 13.2 g/dL 13.0-16.5 [facility] Blood lymphocytes/100 leukoc ytesOrdered By: Dr. Leo on 09-18-2022 Lymphocytes/100 WBC (Bld) 26.1 % 19-41 [facility] Blood monocytes/100 leukocyt esOrdered By: Dr. Leo on 09-18-2022 Monocytes/100 WBC (Bld) 10.4 % 0-10 [facility] Blood platelet mean volumeOr dered By: Dr. Leo on 09-18-2022 Platelet mean volume (Bld) [Entitic vol] 12.3 fL 6.2-12.0 [facility] Determination of erythrocyte mean corpuscular volume (MCV)Ordered By: Dr. Leo on 09-18-2022 MCV (RBC) [Entitic vol] 90.1 fL 80-94 [facility] Hematocrit Auto (Bld) [Volum e fraction]Ordered By: Dr. Leo on 09-18-2022 Hematocrit (Bld) [Volume fraction] 41.8 % 40-54 [facility] Laboratory - Chemistry and C hemistry - challengeOrdered By: Dr. Leo on 09-18-2022 ALP [Catalytic activity/Vol] 113 U/L 45-117 [facility] ALT [Catalytic activity/Vol] 31 U/L 16-61 [facility] CO2 [Moles/Vol] 26.0 mmol/L 21.0-32.0 [facility] Globulin (S) [Mass/Vol] 3.0 g/dL 2.2-4.2 [facility] Urea nitrogen/Creatinine [Mass ratio] 13.4 mg/mg 10-20 [facility] Laboratory - Hematology and Cell countsOrdered By: Dr. Leo on 09-18-2022 Erythrocyte distribution width (RBC) [Entitic vol] 46.9 fL 35.1-43.9 [facility] Erythrocyte distribution width (RBC) [Ratio] 14.4 % 11.6-14.6 [facility] Immature granulocytes/100 WBC (Bld) 0.300 % 0.0-0.9 [facility] Comment on above: IG% - Immature Granu locytes (promyelocytes, myelocytes and metamyelocytes) > 1% indicates that a LEFT SHIFT is Present. MCH (RBC) [Entitic mass] 28.4 pg 27.0-32.0 [facility] Nucleated RBC/100 WBC (Bld) [Ratio] 0 % 0-5 [facility] MCHC Auto (RBC) [Mass/Vol]Or dered By: Dr. Leo on 09-18-2022 MCHC (RBC) [Mass/Vol] 31.6 g/dL 32-36 [facility] No Panel InformationOrdered By: Dr. Leo on 09-18-2022 Estimated Creatinine Clearance Calc 47.13 ml/min [facility] Estimated GFR (MDRD) Amer 71 mL/min >60 [facility] Comment on above: GFR Calc Estimated GFR (MDRD) Non-Af Amer 58 mL/min >60 [facility] Comment on above: Non- GFR Calc Thyroid Stimulating Hormone (TSH) 3.64 uIU/mL 0.358-3.74 [facility] Troponin I High Sensitivity 8 pg/mL 3.0-78.0 [facility] Comment on above: Please Note: [place] t Units and Gender Specific Reference Ranges. For more information see Policy Stat Procedure [place] High Sensitivity Troponin (TNIH) and attachments. Platelets bldOrdered By: Dr. Leo on 09-18-2022 Platelets (Bld) [#/Vol] 131 10*3/uL 150-450 [facility] Serum or plasma albumin francine urement (mass/volume)Ordered By: Dr. eLo on 09-18-2022 Albumin [Mass/Vol] 2.9 g/dL 3.2-5.0 [facility] Serum or plasma albumin/glob ulin mass ratioOrdered By: Dr. Leo on 09-18-2022 Albumin/Globulin [Mass ratio] 1.0 {ratio} 0.9-2.4 [facility] Serum or plasma calcium francine urement (mass/volume)Ordered By: Dr. Leo on 09-18-2022 Calcium [Mass/Vol] 7.6 mg/dL 8.5-10.1 [facility] Serum or plasma cholesterol in HDL measurement (mass/volume)Ordered By: Dr. Leo on 09-18-2022 Cholesterol in HDL [Mass/Vol] 36 mg/dL >40 [facility] Comment on above: The drugs N-Acetylcy steine and Metamizole may falsely depress this assay. Reference Range HDL <40 mg/dL Low HDL Cholesterol HDL >or= 60 mg/dL High HDL Cholesterol Serum or plasma cholesterol in VLDL measurement (mass/volume)Ordered By: Dr. Leo on 09-18-2022 Cholesterol in VLDL [Mass/Vol] 35 mg/dL 5-40 [facility] Serum or plasma creatinine m easurement (mass/volume)Ordered By: Dr. Leo on 09-18-2022 Creatinine [Mass/Vol] 1.27 mg/dL 0.70-1.30 [facility] Comment on above: The validity of the calculated GFR & GFRAA in patients over 70 years has not been determined. Clinical correlation is essential. Serum or plasma low density lipoprotein (LDL) cholesterol measurement (mass/volume)Ordered By: Dr. Leo on 09-18-2022 Cholesterol in LDL [Mass/Vol] 43 mg/dL 0-130 [facility] Serum or plasma urea nitroge n measurement (mass/volume)Ordered By: Dr. Leo on 09-18-2022 Urea nitrogen [Mass/Vol] 17 mg/dL 7-18 [facility] Thin prep Papanicolaou smear with manual screeningOrdered By: Dr. Leo on 09-18-2022 Thin prep Papanicolaou smear with manual screening 21 U/L 15-37 [facility] Thin prep Papanicolaou smear with manual screening 8 5-15 [facility] Whole blood hemoglobin A1c/t otal hemoglobin ratio (mass fraction)Ordered By: Dr. Leo on 09-18-2022 HbA1c (Bld) [Mass fraction] 7.7 % 3.8-5.6 [facility] Comment on above: Normal < 5.7 % Predi abetic 5.7 - 6.4 % Diabetic >or= 6.5 % Please note range changes. INR in Blood by Coagulation assayOrdered By: Dr. Hall on 09-17-2022 INR Coag (Bld) [Relative time] 0.9 {INR} [facility] Laboratory - Chemistry and C hemistry - challengeOrdered By: Dr. Leo on 09-17-2022 Magnesium [Mass/Vol] 2.3 mg/dL 1.6-2.6 [facility] Laboratory - CoagulationOrde red By: Dr. Hall on 09-17-2022 aPTT Coag (Bld) [Time] 32.1 s 24.1-36.2 [facility] PT Coag (PPP) [Time] 12.3 s 11.7-14.9 [facility] Basophil percentageOrdered B y: Dr. Hay on 09-01-2022 Bilirubin [Mass/Vol] 0.70 mg/dL 0.20-1.00 [facility] Comment on above: For patients on eltr ombopag therapy, use of Dimension [place] TBIL is not recommended. Chloride [Moles/Vol] 112 mmol/L 98-107 [facility] Glucose [Mass/Vol] 151 mg/dL 74-106 [facility] Comment on above: Fasting Glucose resu lt greater than or equal to 126 mg/dL suggests DIABETES MELLITUS per A.D.A. criteria. Potassium [Moles/Vol] 3.9 mmol/L 3.5-5.1 [facility] Protein [Mass/Vol] 5.7 g/dL 6.4-8.2 [facility] Sodium [Moles/Vol] 142 mmol/L 136-145 [facility] WBC (Bld) [#/Vol] 4.7 10*3/uL 4.4-11.0 [facility] Blood erythrocytes count (nu mber/volume)Ordered By: Dr. Hay on 09-01-2022 RBC (Bld) [#/Vol] 4.60 10*6/uL 4.6-6.2 [facility] Blood hemoglobin measurement (mass/volume)Ordered By: Dr. Hay on 09-01-2022 Hemoglobin (Bld) [Mass/Vol] 13.0 g/dL 13.0-16.5 [facility] Blood platelet mean volumeOr dered By: Dr. Hay on 09-01-2022 Platelet mean volume (Bld) [Entitic vol] 12.8 fL 6.2-12.0 [facility] Determination of erythrocyte mean corpuscular volume (MCV)Ordered By: Dr. Hay on 09-01-2022 MCV (RBC) [Entitic vol] 89.1 fL 80-94 [facility] Hematocrit Auto (Bld) [Volum e fraction]Ordered By: Dr. Hay on 09-01-2022 Hematocrit (Bld) [Volume fraction] 41.0 % 40-54 [facility] Laboratory - Chemistry and C hemistry - challengeOrdered By: Dr. Hay on 09-01-2022 ALP [Catalytic activity/Vol] 149 U/L 45-117 [facility] ALT [Catalytic activity/Vol] 35 U/L 16-61 [facility] CO2 [Moles/Vol] 27.0 mmol/L 21.0-32.0 [facility] Globulin (S) [Mass/Vol] 2.9 g/dL 2.2-4.[address] [facility] Urea nitrogen/Creatinine [Mass ratio] 15.8 mg/mg 10-20 [facility] Laboratory - Hematology and Cell countsOrdered By: Dr. Hay on 09-01-2022 Erythrocyte distribution width (RBC) [Entitic vol] 44.1 fL 35.1-43.9 [facility] Erythrocyte distribution width (RBC) [Ratio] 13.5 % 11.6-14.6 [facility] MCH (RBC) [Entitic mass] 28.3 pg 27.0-32.0 [facility] MCHC Auto (RBC) [Mass/Vol]Or dered By: Dr. Hay on 09-01-2022 MCHC (RBC) [Mass/Vol] 31.7 g/dL 32-36 [facility] No Panel InformationOrdered By: Dr. Hay on 09-01-2022 Estimated Creatinine Clearance Calc 46.51 ml/min [facility] Estimated GFR (MDRD) Amer 67 mL/min >60 [facility] Comment on above: GFR Calc Estimated GFR (MDRD) Non-Af Amer 55 mL/min >60 [facility] Comment on above: Non- GFR Calc Platelets bldOrdered By: Dr. Hay on 09-01-2022 Platelets (Bld) [#/Vol] 106 10*3/uL 150-450 [facility] Serum or plasma albumin francine urement (mass/volume)Ordered By: Dr. Hay on 09-01-2022 Albumin [Mass/Vol] 2.8 g/dL 3.2-5.0 [facility] Serum or plasma albumin/glob ulin mass ratioOrdered By: Dr. Hya on 09-01-2022 Albumin/Globulin [Mass ratio] 1.0 {ratio} 0.9-2.4 [facility] Serum or plasma calcium francine urement (mass/volume)Ordered By: Dr. Hay on 09-01-2022 Calcium [Mass/Vol] 8.0 mg/dL 8.5-10.1 [facility] Serum or plasma creatinine m easurement (mass/volume)Ordered By: Dr. Hay on 09-01-2022 Creatinine [Mass/Vol] 1.33 mg/dL 0.70-1.30 [facility] Comment on above: The validity of the calculated GFR & GFRAA in patients over 70 years has not been determined. Clinical correlation is essential. Serum or plasma urea nitroge n measurement (mass/volume)Ordered By: Dr. Hay on 09-01-2022 Urea nitrogen [Mass/Vol] 21 mg/dL 7-18 [facility] Thin prep Papanicolaou smear with manual screeningOrdered By: Dr. Hay on 09-01-2022 Thin prep Papanicolaou smear with manual screening 21 U/L 15-37 [facility] Thin prep Papanicolaou smear with manual screening 3 5-15 [facility] No Panel InformationOrdered By: Dr. Hay on 08-31-2022 Activated Clotting Time 275 sec 74-137 [facility] Basophil percentageOrdered B y: Dr. Hay on 08-19-2022 Chloride [Moles/Vol] 108 mmol/L 98-107 [facility] Glucose [Mass/Vol] 158 mg/dL 74-106 [facility] Comment on above: Fasting Glucose resu lt greater than or equal to 126 mg/dL suggests DIABETES MELLITUS per A.D.A. criteria. Potassium [Moles/Vol] 4.3 mmol/L 3.5-5.1 [facility] Sodium [Moles/Vol] 137 mmol/L 136-145 [facility] WBC (Bld) [#/Vol] 8.2 10*3/uL 4.4-11.0 [facility] Blood erythrocytes count (nu mber/volume)Ordered By: Dr. Hay on 08-19-2022 RBC (Bld) [#/Vol] 5.05 10*6/uL 4.6-6.2 [facility] Blood hemoglobin measurement (mass/volume)Ordered By: Dr. Hay on 08-19-2022 Hemoglobin (Bld) [Mass/Vol] 14.3 g/dL 13.0-16.5 [facility] Blood platelet mean volumeOr dered By: Dr. Hay on 08-19-2022 Platelet mean volume (Bld) [Entitic vol] 12.5 fL 6.2-12.0 [facility] Determination of erythrocyte mean corpuscular volume (MCV)Ordered By: Dr. Hay on 08-19-2022 MCV (RBC) [Entitic vol] 88.3 fL 80-94 [facility] Hematocrit Auto (Bld) [Volum e fraction]Ordered By: Dr. Hay on 08-19-2022 Hematocrit (Bld) [Volume fraction] 44.6 % 40-54 [facility] INR in Blood by Coagulation assayOrdered By: Dr. Hay on 08-19-2022 INR Coag (Bld) [Relative time] 1.1 {INR} [facility] Laboratory - Chemistry and C hemistry - challengeOrdered By: Dr. Hay on 08-19-2022 CO2 [Moles/Vol] 25.0 mmol/L 21.0-32.0 [facility] Urea nitrogen/Creatinine [Mass ratio] 12.0 mg/mg 10-20 [facility] Laboratory - CoagulationOrde red By: Dr. Hay on 08-19-2022 aPTT Coag (Bld) [Time] 30.9 s 24.1-36.2 [facility] PT Coag (PPP) [Time] 13.4 s 11.7-14.9 [facility] Laboratory - Hematology and Cell countsOrdered By: Dr. Hay on 08-19-2022 Erythrocyte distribution width (RBC) [Entitic vol] 44.8 fL 35.1-43.9 [facility] Erythrocyte distribution width (RBC) [Ratio] 13.9 % 11.6-14.6 [facility] MCH (RBC) [Entitic mass] 28.3 pg 27.0-32.0 [facility] MCHC Auto (RBC) [Mass/Vol]Or dered By: Dr. Hay on 08-19-2022 MCHC (RBC) [Mass/Vol] 32.1 g/dL 32-36 [facility] No Panel InformationOrdered By: Dr. Hay on 08-19-2022 Estimated GFR (MDRD) Amer 72 mL/min >60 [facility] Comment on above: GFR Calc Estimated GFR (MDRD) Non-Af Amer 60 mL/min >60 [facility] Comment on above: Non- GFR Calc Platelets bldOrdered By: Dr. Hay on 08-19-2022 Platelets (Bld) [#/Vol] 151 10*3/uL 150-450 [facility] Serum or plasma calcium francine urement (mass/volume)Ordered By: Dr. Hay on 08-19-2022 Calcium [Mass/Vol] 9.0 mg/dL 8.5-10.1 [facility] Serum or plasma creatinine m easurement (mass/volume)Ordered By: Dr. Hay on 08-19-2022 Creatinine [Mass/Vol] 1.25 mg/dL 0.70-1.30 [facility] Comment on above: The validity of the calculated GFR & GFRAA in patients over 70 years has not been determined. Clinical correlation is essential. Serum or plasma urea nitroge n measurement (mass/volume)Ordered By: Dr. Hay on 08-19-2022 Urea nitrogen [Mass/Vol] 15 mg/dL 7-18 [facility] Thin prep Papanicolaou smear with manual screeningOrdered By: Dr. Hay on 08-19-2022 Thin prep Papanicolaou smear with manual screening 4 5-15 [facility] Basophil percentageOrdered B y: Dr. Rodriguez on 06-11-2022 Chloride [Moles/Vol] 102 mmol/L 98-107 [facility] Glucose [Mass/Vol] 274 mg/dL 74-106 [facility] Comment on above: Glucose result great er than or equal to 200 mg/dLsuggests DIABETES MELLITUS per A.D.A. criteria. Potassium [Moles/Vol] 4.3 mmol/L 3.5-5.1 [facility] Sodium [Moles/Vol] 136 mmol/L 136-145 [facility] Laboratory - Chemistry and C hemistry - challengeOrdered By: Dr. Rodriguez on 06-11-2022 CO2 [Moles/Vol] 24.0 mmol/L 21.0-32.0 [facility] Magnesium [Mass/Vol] 2.2 mg/dL 1.6-2.6 [facility] Urea nitrogen/Creatinine [Mass ratio] 15.7 mg/mg 10-20 [facility] No Panel InformationOrdered By: Dr. Rodriguez on 06-11-2022 Estimated GFR (MDRD) Amer 67 mL/min >60 [facility] Comment on above: GFR Calc Estimated GFR (MDRD) Non-Af Amer 55 mL/min >60 [facility] Comment on above: Non- GFR Calc Serum or plasma calcium francine urement (mass/volume)Ordered By: Dr. Rodriguez on 06-11-2022 Calcium [Mass/Vol] 8.7 mg/dL 8.5-10.1 [facility] Serum or plasma creatinine m easurement (mass/volume)Ordered By: Dr. Rodriguez on 06-11-2022 Creatinine [Mass/Vol] 1.34 mg/dL 0.70-1.30 [facility] Comment on above: The validity of the calculated GFR & GFRAA in patients over 70 years has not been determined. Clinical correlation is essential. Serum or plasma urea nitroge n measurement (mass/volume)Ordered By: Dr. Rodriguez on 06-11-2022 Urea nitrogen [Mass/Vol] 21 mg/dL 7-18 [facility] Thin prep Papanicolaou smear with manual screeningOrdered By: Dr. Rodriguez on 06-11-2022 Thin prep Papanicolaou smear with manual screening 10 5-15 [facility] Absolute lymphocyte countOrd ered By: Luz Elena Mckeon on 04-14-2022 Lymphocytes Auto (Unsp spec) [#/Vol] 1.60 10*3/uL 0.83-4.51 [facility] Basophil percentageOrdered B y: Luz Elena Mckeon on 04-14-2022 Basophils/100 WBC (Bld) 0.3 % 0-[address] [facility] Chloride [Moles/Vol] 106 mmol/L 98-107 [facility] Eosinophils/100 WBC (Bld) 1.5 % 0-5 [facility] Glucose [Mass/Vol] 211 mg/dL 74-106 [facility] Comment on above: Glucose result great er than or equal to 200 mg/dLsuggests DIABETES MELLITUS per A.D.A. criteria. Neutrophils (Bld) [#/Vol] 3.8 10*3/uL 2.0-7.7 [facility] Neutrophils/100 WBC (Bld) 61.3 % 47-70 [facility] Potassium [Moles/Vol] 4.4 mmol/L 3.5-5.1 [facility] Sodium [Moles/Vol] 136 mmol/L 136-145 [facility] WBC (Bld) [#/Vol] 6.2 10*3/uL 4.4-11.0 [facility] Blood erythrocytes count (nu mber/volume)Ordered By: Luz Elena Mckeon on 04-14-2022 RBC (Bld) [#/Vol] 4.87 10*6/uL 4.6-6.2 [facility] Blood hemoglobin measurement (mass/volume)Ordered By: Luz Elena Mckeon on 04-14-2022 Hemoglobin (Bld) [Mass/Vol] 14.1 g/dL 13.0-16.5 [facility] Blood lymphocytes/100 leukoc ytesOrdered By: Luz Elena Mckeon on 04-14-2022 Lymphocytes/100 WBC (Bld) 25.8 % 19-41 [facility] Blood monocytes/100 leukocyt esOrdered By: Luz Elena Mckeon on 04-14-2022 Monocytes/100 WBC (Bld) 10.8 % 0-10 [facility] Blood platelet mean volumeOr dered By: Luz Elena Mckeon on 04-14-2022 Platelet mean volume (Bld) [Entitic vol] 12.8 fL 6.2-12.0 [facility] Determination of erythrocyte mean corpuscular volume (MCV)Ordered By: Luz Elena Mckeon on 04-14-2022 MCV (RBC) [Entitic vol] 88.1 fL 80-94 [facility] Hematocrit Auto (Bld) [Volum e fraction]Ordered By: Luz Elena Mckeon on 04-14-2022 Hematocrit (Bld) [Volume fraction] 42.9 % 40-54 [facility] Laboratory - Chemistry and C hemistry - challengeOrdered By: Luz Elena Mckeon on 04-14-2022 CO2 [Moles/Vol] 25.0 mmol/L 21.0-32.0 [facility] Natriuretic peptide B (Bld) [Mass/Vol] 54.2 pg/mL 0-100 [facility] Urea nitrogen/Creatinine [Mass ratio] 13.3 mg/mg 10-20 [facility] Laboratory - Hematology and Cell countsOrdered By: Luz Elena Mckeon on 04-14-2022 Erythrocyte distribution width (RBC) [Entitic vol] 44.7 fL 35.1-43.9 [facility] Erythrocyte distribution width (RBC) [Ratio] 13.9 % 11.6-14.6 [facility] Immature granulocytes/100 WBC (Bld) 0.300 % 0.0-0.9 [facility] Comment on above: IG% - Immature Granu locytes (promyelocytes, myelocytes and metamyelocytes) > 1% indicates that a LEFT SHIFT is Present. MCH (RBC) [Entitic mass] 29.0 pg 27.0-32.0 [facility] Nucleated RBC/100 WBC (Bld) [Ratio] 0 % 0-5 [facility] MCHC Auto (RBC) [Mass/Vol]Or dered By: Luz Elena Mckeon on 04-14-2022 MCHC (RBC) [Mass/Vol] 32.9 g/dL 32-36 [facility] No Panel InformationOrdered By: Luz Elena Mckeon on 04-14-2022 Estimated GFR (MDRD) Amer 81 mL/min >60 [facility] Comment on above: GFR Calc Estimated GFR (MDRD) Non-Af Amer 67 mL/min >60 [facility] Comment on above: Non- GFR Calc Platelets bldOrdered By: Loco Mckeon on 04-14-2022 Platelets (Bld) [#/Vol] 150 10*3/uL 150-450 [facility] Serum or plasma calcium francine urement (mass/volume)Ordered By: Luz Elena Mckeon on 04-14-2022 Calcium [Mass/Vol] 8.4 mg/dL 8.5-10.1 [facility] Serum or plasma creatinine m easurement (mass/volume)Ordered By: Luz Elena Mckeon on 04-14-2022 Creatinine [Mass/Vol] 1.13 mg/dL 0.70-1.30 [facility] Comment on above: The validity of the calculated GFR & GFRAA in patients over 70 years has not been determined. Clinical correlation is essential. Serum or plasma urea nitroge n measurement (mass/volume)Ordered By: Luz Elena Mckeon on 04-14-2022 Urea nitrogen [Mass/Vol] 15 mg/dL 7-18 [facility] Thin prep Papanicolaou smear with manual screeningOrdered By: Luz Elena Mckeon on 04-14-2022 Thin prep Papanicolaou smear with manual screening 5 5-15 [facility] Laboratory - Microbiology an d Antimicrobial susceptibilityon 03-27-2022 SARS-CoV-2 (COVID-19) RNA REAGAN+probe Ql (Unsp spec) Detected [facility] No Panel Informationon 03-27 Influenza Types A,B Rapid (Clinic) Not detected [facility] Absolute lymphocyte counton 11-21-2021 Lymphocytes Auto (Unsp spec) [#/Vol] 1.23 10*3/uL 0.83-4.51 [facility] Work Phone: [phone] Basophil percentageon 2021 Basophils/100 WBC (Bld) 0.3 % 0-1 [facility] Work Phone: Chloride [Moles/Vol] 106 mmol/L 98-107 [facility] Work Phone: [phone] Eosinophils/100 WBC (Bld) 1.2 % 0-5 [facility] Work Phone: [phone] Glucose [Mass/Vol] 166 mg/dL 74-106 [facility] Work Phone: [phone] Comment on above: Fasting Glucose resu lt greater than or equal to 126 mg/dL suggests DIABETES MELLITUS per A.D.A. criteria. Neutrophils (Bld) [#/Vol] 4.7 10*3/uL 2.0-7.7 [facility] Work Phone: [phone] Neutrophils/100 WBC (Bld) 69.8 % 47-70 [facility] Work Phone: [phone] Potassium [Moles/Vol] 4.2 mmol/L 3.5-5.1 [facility] Work Phone: [phone] Sodium [Moles/Vol] 140 mmol/L 136-145 [facility] Work Phone: [phone] WBC (Bld) [#/Vol] 6.7 10*3/uL 4.4-11.0 [facility] Work Phone: [phone] Blood erythrocytes count (nu mber/volume)on 11-21-2021 RBC (Bld) [#/Vol] 5.06 10*6/uL 4.6-6.2 [facility] Work Phone: [phone] Blood hemoglobin measurement (mass/volume)on 11-21-2021 Hemoglobin (Bld) [Mass/Vol] 14.3 g/dL 13.0-16.5 [facility] Work Phone: Blood lymphocytes/100 leukoc yteson 11-21-2021 Lymphocytes/100 WBC (Bld) 18.4 % 19-41 [facility] Work Phone: Blood monocytes/100 leukocyt eson 11-21-2021 Monocytes/100 WBC (Bld) 9.9 % 0-10 W [facility] Work Phone: Blood platelet mean volumeon 11-21-2021 Platelet mean volume (Bld) [Entitic vol] 12.4 fL 6.2-12.0 [facility] Work Phone: Determination of erythrocyte mean corpuscular volume (MCV)on 11-21-2021 MCV (RBC) [Entitic vol] 89.1 fL 80-94 [facility] Work Phone: Hematocrit Auto (Bld) [Volum e fraction]on 11-21-2021 Hematocrit (Bld) [Volume fraction] 45.1 % 40-54 [facility] Work Phone: Laboratory - Chemistry and C hemistry - challengeon 11-21-2021 CO2 [Moles/Vol] 27.0 mmol/L 21.0-32.0 [facility] Work Phone: Natriuretic peptide B (Bld) [Mass/Vol] 60.9 pg/mL 0-100 [facility] Work Phone: Urea nitrogen/Creatinine [Mass ratio] 12.9 mg/mg 10-20 [facility] Work Phone: Laboratory - Hematology and Cell countson 11-21-2021 Erythrocyte distribution width (RBC) [Entitic vol] 45.1 fL 35.1-43.9 [facility] Work Phone: Erythrocyte distribution width (RBC) [Ratio] 14.0 % 11.6-14.6 [facility] Work Phone: Immature granulocytes/100 WBC (Bld) 0.400 % 0.0-0.9 [facility] Work Phone: Comment on above: IG% - Immature Granu locytes (promyelocytes, myelocytes and metamyelocytes) > 1% indicates that a LEFT SHIFT is Present. MCH (RBC) [Entitic mass] 28.3 pg 27.0-32.0 [facility] Work Phone: Nucleated RBC/100 WBC (Bld) [Ratio] 0 % 0-5 [facility] Work Phone: MCHC Auto (RBC) [Mass/Vol]on 11-21-2021 MCHC (RBC) [Mass/Vol] 31.7 g/dL 32-36 [facility] Work Phone: No Panel Informationon 11-21 Estimated GFR (MDRD) Amer 63 mL/min >60 [facility] Work Phone: Comment on above: GFR Calc Estimated GFR (MDRD) Non-Af Amer 52 mL/min >60 [facility] Work Phone: Comment on above: Non- GFR Calc Platelets bldon 11-21-2021 Platelets (Bld) [#/Vol] 135 10*3/uL 150-450 [facility] Work Phone: Serum or plasma calcium francine urement (mass/volume)on 11-21-2021 Calcium [Mass/Vol] 8.9 mg/dL 8.5-10.1 [facility] Work Phone: Serum or plasma creatinine m easurement (mass/volume)on 11-21-2021 Creatinine [Mass/Vol] 1.40 mg/dL 0.70-1.30 [facility] Work Phone: Comment on above: The validity of the calculated GFR & GFRAA in patients over 70 years has not been determined. Clinical correlation is essential. Serum or plasma urea nitroge n measurement (mass/volume)on 11-21-2021 Urea nitrogen [Mass/Vol] 18 mg/dL 7-18 [facility] Work Phone: Thin prep Papanicolaou smear with manual screeningon 11-21-2021 Thin prep Papanicolaou smear with manual screening 7 5-15 [facility] Work Phone: [phone] Absolute lymphocyte counton 11-16-2021 Lymphocytes Auto (Unsp spec) [#/Vol] 2.06 10*3/uL 0.83-4.51 [facility] Work Phone: [phone] Basophil percentageon 2021 Basophils/100 WBC (Bld) 0.3 % 0-1 [facility] Work Phone: Chloride [Moles/Vol] 104 mmol/L 98-107 [facility] Work Phone: [phone] Eosinophils/100 WBC (Bld) 1.4 % 0-5 [facility] Work Phone: [phone] Glucose [Mass/Vol] 170 mg/dL 74-106 [facility] Work Phone: Comment on above: Fasting Glucose resu lt greater than or equal to 126 mg/dL suggests DIABETES MELLITUS per A.D.A. criteria. Neutrophils (Bld) [#/Vol] 5.0 10*3/uL 2.0-7.7 [facility] Work Phone: Neutrophils/100 WBC (Bld) 62.3 % 47-70 [facility] Work Phone: [phone] Potassium [Moles/Vol] 4.4 mmol/L 3.5-5.1 [facility] Work Phone: Comment on above: Slight Hemolysis, Re sult may be falsely increased. Sodium [Moles/Vol] 137 mmol/L 136-145 [facility] Work Phone: WBC (Bld) [#/Vol] 7.9 10*3/uL 4.4-11.0 [facility] Work Phone: [phone] Blood erythrocytes count (nu mber/volume)on 11-16-2021 RBC (Bld) [#/Vol] 5.42 10*6/uL 4.6-6.2 [facility] Work Phone: Blood hemoglobin measurement (mass/volume)on 11-16-2021 Hemoglobin (Bld) [Mass/Vol] 15.6 g/dL 13.0-16.5 [facility] Work Phone: Blood lymphocytes/100 leukoc yteson 11-16-2021 Lymphocytes/100 WBC (Bld) 26.0 % 19-41 [facility] Work Phone: Blood monocytes/100 leukocyt eson 11-16-2021 Monocytes/100 WBC (Bld) 9.6 % 0-10 W [facility] Work Phone: Blood platelet mean volumeon 11-16-2021 Platelet mean volume (Bld) [Entitic vol] 12.9 fL 6.2-12.0 [facility] Work Phone: Determination of erythrocyte mean corpuscular volume (MCV)on 11-16-2021 MCV (RBC) [Entitic vol] 89.3 fL 80-94 [facility] Work Phone: Hematocrit Auto (Bld) [Volum e fraction]on 11-16-2021 Hematocrit (Bld) [Volume fraction] 48.4 % 40-54 [facility] Work Phone: Laboratory - Chemistry and C hemistry - challengeon 11-16-2021 CO2 [Moles/Vol] 27.0 mmol/L 21.0-32.0 [facility] Work Phone: Urea nitrogen/Creatinine [Mass ratio] 11.6 mg/mg 10-20 [facility] Work Phone: Laboratory - Hematology and Cell countson 11-16-2021 Erythrocyte distribution width (RBC) [Entitic vol] 44.5 fL 35.1-43.9 [facility] Work Phone: Erythrocyte distribution width (RBC) [Ratio] 13.8 % 11.6-14.6 [facility] Work Phone: Immature granulocytes/100 WBC (Bld) 0.400 % 0.0-0.9 [facility] Work Phone: Comment on above: IG% - Immature Granu locytes (promyelocytes, myelocytes and metamyelocytes) > 1% indicates that a LEFT SHIFT is Present. MCH (RBC) [Entitic mass] 28.8 pg 27.0-32.0 [facility] Work Phone: Nucleated RBC/100 WBC (Bld) [Ratio] 0 % 0-5 [facility] Work Phone: MCHC Auto (RBC) [Mass/Vol]on 11-16-2021 MCHC (RBC) [Mass/Vol] 32.2 g/dL 32-36 [facility] Work Phone: No Panel Informationon 11-16 Troponin I High Sensitivity 7 pg/mL 3.0-78.0 [facility] Work Phone: Comment on above: Please Note: [place] t Units and Gender Specific Reference Ranges. For more information see Policy Stat Procedure [place] High Sensitivity Troponin (TNIH) and attachments. Estimated Creatinine Clearance Calc 45.54 ml/min [facility] Work Phone: Estimated GFR (MDRD) Amer 64 mL/min >60 [facility] Work Phone: Comment on above: GFR Calc Estimated GFR (MDRD) Non-Af Amer 53 mL/min >60 [facility] Work Phone: Comment on above: Non- GFR Calc Platelets bldon 11-16-2021 Platelets (Bld) [#/Vol] 142 10*3/uL 150-450 [facility] Work Phone: Serum or plasma calcium francine urement (mass/volume)on 11-16-2021 Calcium [Mass/Vol] 9.2 mg/dL 8.5-10.1 [facility] Work Phone: Serum or plasma creatinine m easurement (mass/volume)on 11-16-2021 Creatinine [Mass/Vol] 1.38 mg/dL 0.70-1.30 [facility] Work Phone: Comment on above: The validity of the calculated GFR & GFRAA in patients over 70 years has not been determined. Clinical correlation is essential. Serum or plasma urea nitroge n measurement (mass/volume)on 11-16-2021 Urea nitrogen [Mass/Vol] 16 mg/dL 7-18 [facility] Work Phone: Thin prep Papanicolaou smear with manual screeningon 11-16-2021 Thin prep Papanicolaou smear with manual screening 6 5-15 [facility] Work Phone: Basophil percentageon 2021 Chloride [Moles/Vol] 105 mmol/L 98-107 [facility] Work Phone: Glucose [Mass/Vol] 246 mg/dL 74-106 [facility] Work Phone: Comment on above: Glucose result great er than or equal to 200 mg/dLsuggests DIABETES MELLITUS per A.D.A. criteria. Potassium [Moles/Vol] 4.2 mmol/L 3.5-5.1 [facility] Work Phone: Sodium [Moles/Vol] 137 mmol/L 136-145 [facility] Work Phone: Laboratory - Chemistry and C hemistry - challengeon 10-28-2021 CO2 [Moles/Vol] 24.0 mmol/L 21.0-32.0 [facility] Work Phone: Urea nitrogen/Creatinine [Mass ratio] 15.6 mg/mg 10-20 [facility] Work Phone: No Panel Informationon 10-28 Estimated GFR (MDRD) Amer 74 mL/min >60 [facility] Work Phone: Comment on above: GFR Calc Estimated GFR (MDRD) Non-Af Amer 61 mL/min >60 [facility] Work Phone: Comment on above: Non- GFR Calc Serum or plasma calcium francine urement (mass/volume)on 10-28-2021 Calcium [Mass/Vol] 8.9 mg/dL 8.5-10.1 [facility] Work Phone: Serum or plasma creatinine m easurement (mass/volume)on 10-28-2021 Creatinine [Mass/Vol] 1.22 mg/dL 0.70-1.30 [facility] Work Phone: Comment on above: The validity of the calculated GFR & GFRAA in patients over 70 years has not been determined. Clinical correlation is essential. Serum or plasma urea nitroge n measurement (mass/volume)on 10-28-2021 Urea nitrogen [Mass/Vol] 19 mg/dL 7-18 [facility] Work Phone: Thin prep Papanicolaou smear with manual screeningon 10-28-2021 Thin prep Papanicolaou smear with manual screening 8 5-15 [facility] Work Phone: Whole blood hemoglobin A1c/t otal hemoglobin ratio (mass fraction)on 10-28-2021 HbA1c (Bld) [Mass fraction] 7.7 % 3.8-5.6 [facility] Work Phone: Comment on above: Normal < 5.7 % Predi abetic 5.7 - 6.4 % Diabetic >or= 6.5 % Please note range changes. Absolute lymphocyte counton 09-16-2021 Lymphocytes Auto (Unsp spec) [#/Vol] 1.24 10*3/uL 0.83-4.51 [facility] Work Phone: Basophil percentageon 2021 Basophils/100 WBC (Bld) 0.5 % 0-1 W [facility] Work Phone: Chloride [Moles/Vol] 107 mmol/L 98-107 [facility] Work Phone: Eosinophils/100 WBC (Bld) 1.7 % 0-5 [facility] Work Phone: Glucose [Mass/Vol] 134 mg/dL 74-106 [facility] Work Phone: Comment on above: Fasting Glucose resu lt greater than or equal to 126 mg/dL suggests DIABETES MELLITUS per A.D.A. criteria. Neutrophils (Bld) [#/Vol] 4.4 10*3/uL 2.0-7.7 [facility] Work Phone: Neutrophils/100 WBC (Bld) 68.0 % 47-70 [facility] Work Phone: Potassium [Moles/Vol] 4.3 mmol/L 3.5-5.1 [facility] Work Phone: [phone] Sodium [Moles/Vol] 139 mmol/L 136-145 [facility] Work Phone: [phone] WBC (Bld) [#/Vol] 6.4 10*3/uL 4.4-11.0 [facility] Work Phone: Blood erythrocytes count (nu mber/volume)on 09-16-2021 RBC (Bld) [#/Vol] 4.84 10*6/uL 4.6-6.2 [facility] Work Phone: Blood hemoglobin measurement (mass/volume)on 09-16-2021 Hemoglobin (Bld) [Mass/Vol] 14.1 g/dL 13.0-16.5 [facility] Work Phone: Blood lymphocytes/100 leukoc yteson 09-16-2021 Lymphocytes/100 WBC (Bld) 19.3 % 19-41 [facility] Work Phone: Blood monocytes/100 leukocyt eson 09-16-2021 Monocytes/100 WBC (Bld) 10.0 % 0-10 W [facility] Work Phone: Blood platelet mean volumeon 09-16-2021 Platelet mean volume (Bld) [Entitic vol] 12.7 fL 6.2-12.0 [facility] Work Phone: Determination of erythrocyte mean corpuscular volume (MCV)on 09-16-2021 MCV (RBC) [Entitic vol] 90.1 fL 80-94 W [facility] Work Phone: Hematocrit Auto (Bld) [Volum e fraction]on 09-16-2021 Hematocrit (Bld) [Volume fraction] 43.6 % 40-54 [facility] Work Phone: Laboratory - Chemistry and C hemistry - challengeon 09-16-2021 CO2 [Moles/Vol] 27.0 mmol/L 21.0-32.0 [facility] Work Phone: Natriuretic peptide B (Bld) [Mass/Vol] 80.9 pg/mL 0-100 [facility] Work Phone: Urea nitrogen/Creatinine [Mass ratio] 13.7 mg/mg 10-20 [facility] [facility] Work Phone: Laboratory - Hematology and Cell countson 09-16-2021 Erythrocyte distribution width (RBC) [Entitic vol] 46.2 fL 35.1-43.9 [facility] Work Phone: Erythrocyte distribution width (RBC) [Ratio] 13.9 % 11.6-14.6 [facility] Work Phone: Immature granulocytes/100 WBC (Bld) 0.500 % 0.0-0.9 [facility] Work Phone: Comment on above: IG% - Immature Granu locytes (promyelocytes, myelocytes and metamyelocytes) > 1% indicates that a LEFT SHIFT is Present. MCH (RBC) [Entitic mass] 29.1 pg 27.0-32.0 [facility] Work Phone: Nucleated RBC/100 WBC (Bld) [Ratio] 0 % 0-5 [facility] Work Phone: MCHC Auto (RBC) [Mass/Vol]on 09-16-2021 MCHC (RBC) [Mass/Vol] 32.3 g/dL 32-36 [facility] Work [facility]: No Panel Informationon 09-16 Estimated GFR (MDRD) Amer 73 mL/min >60 [facility] Work Phone: Comment on above: GFR Calc Estimated GFR (MDRD) Non-Af Amer 60 mL/min >60 [facility] Work Phone: Comment on above: Non- GFR Calc Platelets bldon 09-16-2021 Platelets (Bld) [#/Vol] 133 10*3/uL 150-450 [facility] Work Phone: Serum or plasma calcium francine urement (mass/volume)on 09-16-2021 Calcium [Mass/Vol] 9.0 mg/dL 8.5-10.1 [facility] Work Phone: Serum or plasma creatinine m easurement (mass/volume)on 09-16-2021 Creatinine [Mass/Vol] 1.24 mg/dL 0.70-1.30 [facility] Work Phone: Comment on above: The validity of the calculated GFR & GFRAA in patients over 70 years has not been determined. Clinical correlation is essential. Serum or plasma urea nitroge n measurement (mass/volume)on 09-16-2021 Urea nitrogen [Mass/Vol] 17 mg/dL 7-18 [facility] Work Phone: Thin prep Papanicolaou smear with manual screeningon 09-16-2021 Thin prep Papanicolaou smear with manual screening 5 5-15 [facility] Work Phone: Absolute lymphocyte counton 06-10-2021 Lymphocytes Auto (Unsp spec) [#/Vol] 1.00 10*3/uL 0.83-4.51 [facility] Work Phone: Basophil percentageon 2021 Basophils/100 WBC (Bld) 0.3 % 0-1 W [facility] Work Phone: Chloride [Moles/Vol] 107 mmol/L 98-107 [facility] Work Phone: Eosinophils/100 WBC (Bld) 1.7 % 0-5 [facility] Work Phone: Glucose [Mass/Vol] 150 mg/dL 74-106 [facility] Work Phone: Comment on above: Fasting Glucose resu lt greater than or equal to 126 mg/dL suggests DIABETES MELLITUS per A.D.A. criteria. Neutrophils (Bld) [#/Vol] 4.9 10*3/uL 2.0-7.7 [facility] Work Phone: Neutrophils/100 WBC (Bld) 73.8 % 47-70 [facility] Work Phone: Potassium [Moles/Vol] 5.6 mmol/L 3.5-5.1 [facility] Work Phone: Comment on above: Moderate Hemolysis, Result may be falsely increased. Sodium [Moles/Vol] 139 mmol/L 136-145 [facility] Work Phone: WBC (Bld) [#/Vol] 6.7 10*3/uL 4.4-11.0 [facility] Work Phone: Blood erythrocytes count (nu mber/volume)on 06-10-2021 RBC (Bld) [#/Vol] 5.17 10*6/uL 4.6-6.2 [facility] Work Phone: Blood hemoglobin measurement (mass/volume)on 06-10-2021 Hemoglobin (Bld) [Mass/Vol] 15.5 g/dL 13.0-16.5 [facility] Work Phone: Blood lymphocytes/100 leukoc yteson 06-10-2021 Lymphocytes/100 WBC (Bld) 15.0 % 19-41 [facility] Work Phone: [phone] Blood monocytes/100 leukocyt eson 06-10-2021 Monocytes/100 WBC (Bld) 8.7 % 0-10 W [facility] Work Phone: Blood platelet mean volumeon 06-10-2021 Platelet mean volume (Bld) [Entitic vol] 12.7 fL 6.2-12.0 [facility] Work Phone: Determination of erythrocyte mean corpuscular volume (MCV)on 06-10-2021 MCV (RBC) [Entitic vol] 89.6 fL 80-94 W [facility] Work Phone: Hematocrit Auto (Bld) [Volum e fraction]on 06-10-2021 Hematocrit (Bld) [Volume fraction] 46.3 % 40-54 [facility] Work Phone: Laboratory - Chemistry and C hemistry - challengeon 06-10-2021 CO2 [Moles/Vol] 28.0 mmol/L 21.0-32.0 [facility] Work Phone: Urea nitrogen/Creatinine [Mass ratio] 12.7 mg/mg 10-20 [facility] Work Phone: Laboratory - Hematology and Cell countson 06-10-2021 Erythrocyte distribution width (RBC) [Entitic vol] 45.9 fL 35.1-43.9 [facility] Work Phone: Erythrocyte distribution width (RBC) [Ratio] 14.1 % 11.6-14.6 [facility] Work Phone: Immature granulocytes/100 WBC (Bld) 0.500 % 0.0-0.9 [facility] Work Phone: Comment on above: IG% - Immature Granu locytes (promyelocytes, myelocytes and metamyelocytes) > 1% indicates that a LEFT SHIFT is Present. MCH (RBC) [Entitic mass] 30.0 pg 27.0-32.0 [facility] Work Phone: Nucleated RBC/100 WBC (Bld) [Ratio] 0 % 0-5 [facility] Work Phone: MCHC Auto (RBC) [Mass/Vol]on 06-10-2021 MCHC (RBC) [Mass/Vol] 33.5 g/dL 32-36 [facility] Work Phone: No Panel Informationon 06-10 Troponin I High Sensitivity 10 pg/mL 3.0-78.0 [facility] Work Phone: [phone] Comment on above: Please Note: [place] t Units and Gender Specific Reference Ranges. For more information see Policy Stat Procedure [place] High Sensitivity Troponin (TNIH) and attachments. Estimated Creatinine Clearance Calc 47.63 ml/min [facility] Work Phone: Estimated GFR (MDRD) Amer 67 mL/min >60 [facility] Work Phone: Comment on above: GFR Calc Estimated GFR (MDRD) Non-Af Amer 55 mL/min >60 [facility] Work Phone: Comment on above: Non- GFR Calc Platelets bldon 06-10-2021 Platelets (Bld) [#/Vol] 146 10*3/uL 150-450 [facility] Work Phone: Serum or plasma calcium francine urement (mass/volume)on 06-10-2021 Calcium [Mass/Vol] 8.7 mg/dL 8.5-10.1 [facility] Work Phone: Serum or plasma creatinine m easurement (mass/volume)on 06-10-2021 Creatinine [Mass/Vol] 1.34 mg/dL 0.70-1.30 [facility] Work Phone: Comment on above: The validity of the calculated GFR & GFRAA in patients over 70 years has not been determined. Clinical correlation is essential. Serum or plasma urea nitroge n measurement (mass/volume)on 06-10-2021 Urea nitrogen [Mass/Vol] 17 mg/dL 7-18 [facility] Work Phone: Thin prep Papanicolaou smear with manual screeningon 06-10-2021 Thin prep Papanicolaou smear with manual screening 4 5-15 [facility] Work Phone: Absolute lymphocyte counton 05-19-2021 Lymphocytes Auto (Unsp spec) [#/Vol] 1.72 10*3/uL 0.83-4.51 [facility] Work Phone: Basophil percentageon 2021 Basophils/100 WBC (Bld) 0.4 % 0-1 W [facility] Work Phone: Bilirubin [Mass/Vol] 1.20 mg/dL 0.20-1.00 [facility] Work Phone: Comment on above: For patients on eltr ombopag therapy, use of Dimension [place] TBIL is not recommended. Chloride [Moles/Vol] 106 mmol/L 98-107 [facility] Work Phone: Eosinophils/100 WBC (Bld) 1.2 % 0-5 [facility] Work Phone: Glucose [Mass/Vol] 182 mg/dL 74-106 [facility] Work Phone: Comment on above: Fasting Glucose resu lt greater than or equal to 126 mg/dL suggests DIABETES MELLITUS per A.D.A. criteria. Neutrophils (Bld) [#/Vol] 6.6 10*3/uL 2.0-7.7 [facility] Work Phone: Neutrophils/100 WBC (Bld) 70.5 % 47-70 [facility] Work Phone: Potassium [Moles/Vol] 3.8 mmol/L 3.5-5.1 [facility] Work Phone: Protein [Mass/Vol] 7.9 g/dL 6.4-8.2 [facility] Work Phone: Sodium [Moles/Vol] 139 mmol/L 136-145 [facility] Work Phone: WBC (Bld) [#/Vol] 9.4 10*3/uL 4.4-11.0 [facility] Work Phone: Basophil percentage 0 SEEN /hpf [facility] Work Phone: Bilirubin Test strip Ql (U)o n 05-19-2021 Bilirubin Ql (U) Negative Negative [facility] Work Phone: Blood erythrocytes count (nu mber/volume)on 05-19-2021 RBC (Bld) [#/Vol] 5.30 10*6/uL 4.6-6.2 [facility]: Blood hemoglobin measurement (mass/volume)on 05-19-2021 Hemoglobin (Bld) [Mass/Vol] 15.3 g/dL 13.0-16.5 [facility] Work Phone: Blood lymphocytes/100 leukoc yteson 05-19-2021 Lymphocytes/100 WBC (Bld) 18.3 % 19-41 [facility] Work Phone: Blood monocytes/100 leukocyt eson 05-19-2021 Monocytes/100 WBC (Bld) 9.3 % 0-10 W [facility] Work Phone: Blood platelet mean volumeon 05-19-2021 Platelet mean volume (Bld) [Entitic vol] 12.5 fL 6.2-12.0 [facility] Work Phone: Determination of erythrocyte mean corpuscular volume (MCV)on 05-19-2021 MCV (RBC) [Entitic vol] 89.8 fL 80-94 W [facility] Work Phone: Hematocrit Auto (Bld) [Volum e fraction]on 05-19-2021 Hematocrit (Bld) [Volume fraction] 47.6 % 40-54 [facility] Work Phone: Ketones Test strip Ql (U)on 05-19-2021 Ketones Ql (U) Negative Negative [facility] Work Phone: Laboratory - Chemistry and C hemistry - challengeon 05-19-2021 ALP [Catalytic activity/Vol] 156 U/L 45-117 [facility] Work Phone: ALT [Catalytic activity/Vol] 44 U/L 16-61 [facility] Work Phone: CO2 [Moles/Vol] 26.0 mmol/L 21.0-32.0 [facility] Work Phone: Globulin (S) [Mass/Vol] 4.2 g/dL 2.2-4.2 W [facility] Work Phone: Lipase [Catalytic activity/Vol] 199 U/L 73-393 [facility] Work Phone: Urea nitrogen/Creatinine [Mass ratio] 13.8 mg/mg 10-20 [facility] Work Phone: Laboratory - Hematology and Cell countson 05-19-2021 Erythrocyte distribution width (RBC) [Entitic vol] 46.7 fL 35.1-43.9 [facility] Work Phone: Erythrocyte distribution width (RBC) [Ratio] 14.3 % 11.6-14.6 [facility] Work Phone: Immature granulocytes/100 WBC (Bld) 0.300 % 0.0-0.9 [facility] Work Phone: Comment on above: IG% - Immature Granu locytes (promyelocytes, myelocytes and metamyelocytes) > 1% indicates that a LEFT SHIFT is Present. MCH (RBC) [Entitic mass] 28.9 pg 27.0-32.0 [facility] Work Phone: Nucleated RBC/100 WBC (Bld) [Ratio] 0 % 0-5 [facility] Work Phone: MCHC Auto (RBC) [Mass/Vol]on 05-19-2021 MCHC (RBC) [Mass/Vol] 32.1 g/dL 32-36 [facility] Work Phone: Mucus LM Ql (Urine sed)on Mucus Ql (Urine sed) 0 SEEN /hpf [facility] Work Phone: Nitrite Test strip Ql (U)on 05-19-2021 Nitrite Ql (U) Negative Negative [facility] Work Phone: No Panel Informationon 05-19 Estimated Creatinine Clearance Calc 46.25 ml/min [facility] Work Phone: Estimated GFR (MDRD) Amer 65 mL/min >60 [facility] Work Phone: Comment on above: GFR Calc Estimated GFR (MDRD) Non-Af Amer 53 mL/min >60 [facility] Work Phone: Comment on above: Non- GFR Calc Platelets bldon 05-19-2021 Platelets (Bld) [#/Vol] 158 10*3/uL 150-450 [facility] Work Phone: Protein Test strip Ql (U)on 05-19-2021 Protein Ql (U) Negative Negative [facility] Work Phone: Serum or plasma albumin francine urement (mass/volume)on 05-19-2021 Albumin [Mass/Vol] 3.7 g/dL 3.2-5.0 [facility] Work Phone: Serum or plasma albumin/glob ulin mass ratioon 05-19-2021 Albumin/Globulin [Mass ratio] 0.9 {ratio} 0.9-2.4 [facility] Work Phone: Serum or plasma calcium francine urement (mass/volume)on 05-19-2021 Calcium [Mass/Vol] 9.2 mg/dL 8.5-10.1 [facility] Work Phone: Serum or plasma creatinine m easurement (mass/volume)on 05-19-2021 Creatinine [Mass/Vol] 1.38 mg/dL 0.70-1.30 [facility] Work Phone: Comment on above: The validity of the calculated GFR & GFRAA in patients over 70 years has not been determined. Clinical correlation is essential. Serum or plasma urea nitroge n measurement (mass/volume)on 05-19-2021 Urea nitrogen [Mass/Vol] 19 mg/dL 7-18 [facility] Work Phone: Squamous epithelial cells de tection in urine sediment by light microscopyon 05-19-2021 Epithelial cells.squamous LM Ql (Urine sed) 0 SEEN /hpf [facility] Work Phone: Thin prep Papanicolaou smear with manual screeningon 05-19-2021 Thin prep Papanicolaou smear with manual screening 25 U/L 15-37 [facility] Work Phone: Thin prep Papanicolaou smear with manual screening 7 5-15 [facility] Work Phone: Urine blood detectionon 05-03 RBC Ql (U) Negative Negative [facility] Work Phone: RBC Ql (U) 0 SEEN /hpf [facility] Work Phone: Urine clarityon 05-19-2021 Clarity (U) Clear Clear [facility] Work Phone: Urine color determinationon 05-19-2021 Color (U) Straw Yellow [facility] Work Phone: Urine glucose detectionon Glucose Ql (U) Normal mg/dl Normal [facility] Work Phone: Urine leukocyte esterase det ection by dipstickon 05-19-2021 Leukocyte esterase Test strip Ql (U) Negative Negative [facility] Work Phone: Urine pHon 05-19-2021 pH (U) 5.0 [pH] [facility] Work Phone: Urine sediment bacteria coun t by microscopy (number/high power field)on 05-19-2021 Bacteria LM.HPF (Urine sed) [#/Area] 0 /[HPF] None Seen [facility] Work Phone: Urine specific gravity measu rementon 05-19-2021 Specific gravity (U) [Rel density] 1.010 [facility] Work Phone: Urobilinogen Auto test strip Ql (U)on 05-19-2021 Urobilinogen Ql (U) Normal mg/dl Normal [facility] Work Phone: CT ANGIOGRAM AORTA CHEST ABD [...] descending thoracic aorta is tortuous within its [id number] course but is not aneurysmal. The abdominal [...] particularly at L4-L5 and L5-S1. IMAGING FACILITY: [facility]. SB/tde Workstation ID: [id number] Dictated by: YAS IYER on WedFeb 26, 2021 1:26:53 PM EDT Transcribed by: KEIKO CORLEY on WedFeb 26, 2021 1:43:47 PM EDT Finalized by: YAS IYER on WedFeb 27, 2021 7:40:59 AM EDT Normal [facility] Comment on above: Order Comment: Injur y/Trauma or Illness?:Illness/Other How long have you had these symptoms (acute/chronic)?:Acute Reason for exam?:Coronary artery disease involving [place] coronary artery of [place] heart with angina pectoris, recent heart cath Type of Exam?:Subsequent/Follow-up Additional signs and symptoms?: LEFT HEART CATH POSSIBLE PTC A/STENTon 01-10-2021 LEFT HEART CATH POSSIBLE PTCA/STENT Patient Name: ERIBERTO RICO Date of : 1945 Procedure Date: 01/10/2021 Cath #: [id number] Physician(s): Eladio Ingram MD Ref. Physician: PROCEDURE(S) PERFORMED: Clinical History: Prior smoker, quit date: Diabetes Mellitus: Yes Hypertension: Yes Dyslipidemia: Yes Prior [place]: Yes Other: Stroke Prior PCI: Yes 2016 [...] right femoral artery - 6F. 10 cm [place] Catheters were advanced using standard guide wire [...] Equipment: Sheath(s) V[employer] 4F MICROPUNCTURE KIT MetaCure 6F 10CM [place] SHEATH Wire(s) [employer] J WIRE FIXED MERIT .035 X 150CM GUIDEWIRE Catheter(s) [employer] JR4 DIAG CATH 6F [employer] JR4 DIAG CATH 6F [employer] PIGTAIL STRAIGHT DIAG CATH 6F See Nursing Notes for further details Signed By Eladio Ingram MD On 01/10/2021 11:05:05 Eladio Ingram MD _ _ [facility] ECHOCARDIOGRAM 2D COMPLETEOr dered By: Eladio Ingram on 10-15-2020 Aortic valve area 2.33619 cm [facility] AV mean gradient 6 mmHg [facility] EF 62.7797 % [facility] Patient Info Name: ERIBERTO RICO Age: 75 years : 1945 Gender: Male Ht: 175 cm Wt: 106 kg BSA: 2.31 m2 HR: 50 bpm BP: 134 / 72 mmHg Heart Rhythm: Bradycardia, Sinus Rhythm Technical Quality: Fair, Technically difficult Exam Date: 10/15/2020 12:57 PM Patient Status: Outpatient Tumbler Operator: Tracy Bonilla, MONICACS, RVT Exam Type: ECHOCARDIOGRAM COMPLETE W CONTRAST Study Info Indications - Dyspnea Attending Physician: ELADIO INGRAM Referring Physician: ELADIO INGRAM ; [id number] BMI: 34.56 kg/m2 Summary 1. Left ventricular systolic function is normal, with ejection fraction estimated at 60 +/- 5%. 2. The left ventricular diastolic function is normal. 3. 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 4. There is no aortic valve stenosis. History/Risk Factors Hypertension: Yes Dyslipidemia: Yes Diabetic Therapy: Oral Peripheral Arterial Disease (PAD): Yes Myocardial Infarction (MN): Yes Coronary Artery Disease (CAD) Yes Congestive Heart Failure (CHF): Hx CHF Date of Prior MN: 05/03/2008 Diabetes Mellitus: Yes History/Risk Factors sleep [...] m/s (more content not included)... [facility] Interface, Rad In [facility] [employer]ch[employer] - 10/15/2020 4:30 PM EDT Patient Info Name: ERIBERTO RICO Age: 75 years : 1945 Gender: Male Ht: 175 cm Wt: 106 kg BSA: 2.31 m2 HR: 50 bpm BP: 134 / 72 mmHg Heart Rhythm: Bradycardia, Sinus Rhythm Technical Quality: Fair, Technically difficult Exam Date: 10/15/2020 12:57 PM Patient Status: Outpatient Tumbler Operator: Tracy Bonilla, MONICACS, RVT Exam Type: ECHOCARDIOGRAM COMPLETE W CONTRAST Study Info Indications - Dyspnea Attending Physician: ELADIO INGRAM Referring Physician: ELADIO INGRAM ; [id number] BMI: 34.56 kg/m2 Summary 1. Left ventricular systolic function is normal, with ejection fraction estimated at 60 +/- 5%. 2. The left ventricular diastolic function is normal. 3. 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 4. There is no aortic valve stenosis. History/Risk Factors Hypertension: Yes Dyslipidemia: Yes Diabetic Therapy: Oral Peripheral Arterial Disease (PAD): Yes Myocardial Infarction (MN): Yes Coronary Artery Disease (CAD) Yes Congestive Heart Failure (CHF): Hx CHF Date of Prior MN: 05/03/2008 Diabetes Mellitus: Yes History/Risk Factors sleep [...] mmHg MV VTI 46 cm MV [place] 333 cm/s2 MV PHT 38 ms MV Area (PHT) 5.8 cm2 4.0-5.0 MV Area (Cont Eq VTI) 2.5 cm2 MV Area Index (Cont Eq VTI) 1.06 cm2/m2 MV Di (more content not included)... [facility] ECHOCARDIOGRAM COMPLETE W CO NTRASTon 10-15-2020 ECHOCARDIOGRAM COMPLETE W CONTRAST Patient Info Name: ERIBERTO RICO Age: 75 years : 1945 Gender: Male Ht: 175 cm Wt: 106 kg BSA: 2.31 m2 HR: 50 bpm BP: 134 / 72 mmHg Heart Rhythm: Bradycardia, Sinus Rhythm Technical Quality: Fair, Technically difficult Exam Date: 10/15/2020 12:57 PM Patient Status: Outpatient Tumbler Operator: Tracy Bonilla, DUR, RVT Exam Type: ECHOCARDIOGRAM COMPLETE W CONTRAST Study Info Indications - Dyspnea Attending Physician: ELADIO INGRAM Referring Physician: ELADIO INGRAM ; [id number] BMI: 34.56 kg/m2 Summary 1. Left ventricular systolic function is normal, with ejection fraction estimated at 60 +/- 5%. 2. The left ventricular diastolic function is normal. 3. 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 4. There is no aortic valve stenosis. History/Risk Factors Hypertension: Yes Dyslipidemia: Yes Diabetic Therapy: Oral Peripheral Arterial Disease (PAD): Yes Myocardial Infarction (MN): Yes Coronary Artery Disease (CAD) Yes Congestive Heart Failure (CHF): Hx CHF Date of Prior MN: 05/03/2008 Diabetes Mellitus: Yes History/Risk Factors sleep [...] mmHg MV VTI 46 cm MV [place] 333 cm/s2 MV PHT 38 ms MV Area (PHT) 5.8 cm2 4.0-5.0 MV Area (Cont Eq VTI) 2.5 cm2 MV Area Index (Cont Eq VTI) 1.06 cm2/m2 MV Diastolic Function ------- MV E Peak Velocity 1 m/s MV A Peak Velocity 1 m/s MV E/A 1.2 MV (more content not included)... Normal [facility] Ambulatory ECG 12-LEADOrdered By: Fernanda Acuña on 10-09-2020 Atrial Rate [facility] P [place] [facility] P-R Interval [facility] Q-T Interval [facility] Q-T Interval (corrected) [facility] QRS Duration [facility] QTC Calculation (Bezet) O [facility] R [place] [facility] T [place] [facility] Ventricular Rate [facility] Auto Diffon 09-15-2018 Basophils #/vol (Bld) 0.0 E3/mcL Normal 0.0-0.2 [facility] Comment on above: Order Comment: Order Added by Discern Expert. Performed By: #### [id number] #### [employer] [facility] [address] [place] [address] Basophils/100 WBC (Bld) 0.6 % Normal 0.0-2.0 [facility] Comment on above: Order Comment: Order Added by Discern Expert. Performed By: #### [id number] #### [employer] [address] [place] [address] Eos Absolute 0.1 E3/mcL Normal 0.0-0.7 [facility] Comment on above: Order Comment: Order Added by Discern Expert. Performed By: #### [id number] #### [employer] [address] [place] [address] Eosinophils/100 WBC (Bld) 2.2 % Normal 0.0-11.0 [facility] Comment on above: Order Comment: Order Added by Discern Expert. Performed By: #### [id number] #### [employer] [address] [place] [address] Lymphocytes #/vol (Bld) 1.9 E3/mcL Normal 1.2-3.4 [facility] Comment on above: Order Comment: Order Added by Discern Expert. Performed By: #### [id number] #### [employer] [address] [place] [address] Lymphocytes/100 WBC (Bld) 31.0 % Normal 20.0-55.0 [facility] Comment on above: Order Comment: Order Added by Discern Expert. Performed By: #### [id number] #### [employer] [address] [place] [address] [place] Absolute 0.8 E3/mcL High 0.0-0.7 [facility] Comment on above: Order Comment: Order Added by Discern Expert. Performed By: #### [id number] #### [employer] [address] [place] [address] Monocytes/100 WBC (Bld) 13.2 % High 0.0-10.0 [facility] Comment on above: Order Comment: Order Added by Discern Expert. Performed By: #### [id number] #### [employer] [address] [place] [address] Neutro Absolute 3.3 E3/mcL Normal 1.4-6.5 [facility] Comment on above: Order Comment: Order Added by Discern Expert. Performed By: #### [id number] #### [employer] [address] [place] [id number] Neutro Auto 53.0 % Normal 37.0-75.0 [facility] Comment on above: Order Comment: Order Added by Discern Expert. Performed By: #### 2 [id number] #### [employer] [address] [place] [address] BMPon 09-15-2018 Anion gap molar conc 10 mmol/L Normal 10-20 [facility] Comment on above: Performed By: #### 2 [id number] #### [employer] Rem[employer]emo [address] [place] [address] Calcium mass conc 8.4 mg/dL Low 8.6-10.3 [facility] Comment on above: Performed By: #### 2 [id number] #### [employer] [address] [place] [address] Chloride molar conc 105 mmol/L Normal 98-107 [facility] Comment on above: Performed By: #### 2 [id number] #### [employer] [address] [place] [address] CO2 molar conc 26.0 mmol/L Normal 21.0-32.0 [facility] Comment on above: Performed By: #### 2 [id number] #### [employer] [address] [place] [address] Creatinine mass conc 1.1 mg/dL Normal 0.5-1.3 [facility] Comment on above: Performed By: #### 2 [id number] #### [employer] [address] [place] [address] Glucose mass conc 136 mg/dL High 70-99 [facility] Comment on above: Performed By: #### 2 [id number] #### [employer] [address] [place] [address] Potassium molar conc 4.1 mmol/L Normal 3.5-5.3 [facility] Comment on above: Performed By: #### 2 [id number] #### [employer] [address] [place] [address] Sodium molar conc 137 mmol/L Normal 136-145 [facility] Comment on above: Performed By: #### 2 [id number] #### [employer] [address] [place] [address] Urea nitrogen mass conc 19 mg/dL Normal 6-23 [facility] Comment on above: Performed By: #### 2 [id number] #### [employer] [address] [place] [address] Urea nitrogen/Creatinine mass ratio 17.3 ratio Normal 5.4-30.0 [facility] Comment on above: Performed By: #### 2 [id number] #### [employer] [address] [place] [address] CBC w/ Auto Diffon 9 Erythrocyte distribution width Ratio (RBC) 14.9 % High 11.5-14.5 [facility] Comment on above: Performed By: #### 2 [id number] #### [employer] [address] [place] [id number] Hematocrit Volume Fraction (Bld) 41.5 % Low 42.0-52.0 [facility] Comment on above: Performed By: #### 2 [id number] #### [employer] [address] [place] [id number] Hemoglobin mass conc (Bld) 13.6 g/dL Normal 13.5-18.0 [facility] Comment on above: Performed By: #### 2 [id number] #### [employer] [address] [place] [address] MCH Entitic mass (RBC) 29.6 pg Normal 27.0-31.0 [facility] Comment on above: Performed By: #### 2 [id number] #### [employer] [address] [place] [address] MCHC mass conc (RBC) 32.8 g/dL Low 33.0-37.0 [facility] Comment on above: Performed By: #### 2 359340 #### [employer] [address] [place] [address] MCV Entitic volume (RBC) 90.4 fL Normal 78.0-100.0 [facility] Comment on above: Performed By: #### 2 [id number] #### [employer] [address] [place] [address] Platelet mean volume Entitic volume (Bld) 10.8 fL Normal 7.4-11.0 [facility] Comment on above: Performed By: #### 2 [id number] #### [employer] [address] [place] [address] Platelets #/vol (Bld) 137 E3/mcL Normal 130-400 [facility] Comment on above: Performed By: #### 2 [id number] #### [employer] [address] [place] [address] RBC #/vol (Bld) 4.59 E6/mcL Normal 3.90-6.10 [facility] Comment on above: Performed By: #### 2 360622 #### [employer] [address] [place] [address] WBC #/vol (Bld) 6.2 E3/mcL Normal 3.6-11.0 [facility] Comment on above: Performed By: #### 2 [id number] #### [employer] [address] [place] [address] Glucose POCon 09-15-2018 Glucose mass conc 163 mg/dL High 70-99 [facility] Comment on above: Performed By: #### 2 [id number] #### [employer] [address] [place] [address] Glucose mass conc 99 mg/dL Normal 70-99 [facility] Comment on above: Performed By: #### 2 782133 #### [employer] [address] [place] [address] Troponin-Ion 09-15-2018 Troponin I.cardiac mass conc 0.01 ng/mL Normal 0.00-0.03 [facility] Comment on above: Performed By: #### 2 [id number] #### [employer] [address] [place] [address] eGFRon 09-15-2018 GFR/1.73 sq M predicted among non-blacks MDRD vol rate/area (S/P/Bld) mL/min/{1.73_m2} Normal [facility] Comment on above: Order Comment: Order added by Discern Expert. Performed By: #### 2 [id number] #### [employer] [address] [place] [address] Auto Diffon 09-14-2018 Basophils #/vol (Bld) 0.0 E3/mcL Normal 0.0-0.2 [facility] Comment on above: Order Comment: Order Added by Discern Expert. Performed By: #### 2 [id number] #### [employer] [address] [place] [address] Basophils/100 WBC (Bld) 0.6 % Normal 0.0-2.0 [facility] Comment on above: Order Comment: Order Added by Discern Expert. Performed By: #### 2 [id number] #### [employer] [address] [place] [address] Eos Absolute 0.1 E3/mcL Normal 0.0-0.7 [facility] Comment on above: Order Comment: Order Added by Discern Expert. Performed By: #### 2 [id number] #### [employer] [address] [place] [address] Eosinophils/100 WBC (Bld) 1.7 % Normal 0.0-11.0 [facility] Comment on above: Order Comment: Order Added by Discern Expert. Performed By: #### 2 [id number] #### [employer] [address] [place] [address] Lymphocytes #/vol (Bld) 1.2 E3/mcL Normal 1.2-3.4 [facility] Comment on above: Order Comment: Order Added by Discern Expert. Performed By: #### 2 607999 #### [employer] [address] [place] [address] Lymphocytes/100 WBC (Bld) 16.5 % Low 20.0-55.0 [facility] Comment on above: Order Comment: Order Added by Discern Expert. Performed By: #### 2 [id number] #### [employer] [address] [place] [address] [place] Absolute 0.8 E3/mcL High 0.0-0.7 [facility] Comment on above: Order Comment: Order Added by Discern Expert. Performed By: #### 2 [id number] #### [employer] [address] [place] [address] Monocytes/100 WBC (Bld) 11.1 % High 0.0-10.0 [facility] Comment on above: Order Comment: Order Added by Discern Expert. Performed By: #### 2 [id number] #### [employer] [address] [place] [address] Neutro Absolute 5.1 E3/mcL Normal 1.4-6.5 [facility] Comment on above: Order Comment: Order Added by Discern Expert. Performed By: #### 2 [id number] #### [employer] [address] [place] [address] Neutro Auto 70.1 % Normal 37.0-75.0 [facility] Comment on above: Order Comment: Order Added by Discern Expert. Performed By: #### 2 [id number] #### [employer] [address] [place] [address] BMPon 09-14-2018 Anion gap molar conc 13 mmol/L Normal 10-20 [facility] Comment on above: Performed By: #### 2 [id number] #### [employer] [address] [place] [address] Calcium mass conc 9.2 mg/dL Normal 8.6-10.3 [facility] Comment on above: Performed By: #### 2 [id number] #### [employer] [address] [place] [address] Chloride molar conc 105 mmol/L Normal 98-107 [facility] Comment on above: Performed By: #### 2 911119 #### [employer] [address] [place] [address] CO2 molar conc 24.0 mmol/L Normal 21.0-32.0 [facility] Comment on above: Performed By: #### 2 [id number] #### [employer] [address] [place] [address] Creatinine mass conc 1.2 mg/dL Normal 0.5-1.3 [facility] Comment on above: Performed By: #### 2 [id number] #### [employer] [address] [place] [address] Glucose mass conc 129 mg/dL High 70-99 [facility] Comment on above: Performed By: #### 2 286724 #### [employer] [address] [place] [address] Potassium molar conc 3.9 mmol/L Normal 3.5-5.3 [facility] Comment on above: Performed By: #### 2 607262 #### [employer] [address] [place] [address] Sodium molar conc 138 mmol/L Normal 136-145 [facility] Comment on above: Performed By: #### 2 904823 #### [employer] [address] [place] [address] Urea nitrogen mass conc 19 mg/dL Normal 6-23 [facility] Comment on above: Performed By: #### 2 329391 #### [employer] [address] [place] [address] Urea nitrogen/Creatinine mass ratio 15.8 ratio Normal 5.4-30.0 [facility] Comment on above: Performed By: #### 2 090031 #### [employer] [address] [place] [address] CBC w/ Auto Diffon 9 Erythrocyte distribution width Ratio (RBC) 15.2 % High 11.5-14.5 [facility] Comment on above: Performed By: #### 2 969774 #### [employer] [address] [place] [address] Hematocrit Volume Fraction (Bld) 45.0 % Normal 42.0-52.0 [facility] Comment on above: Performed By: #### 2 [id number] #### [employer] [address] [place] [address] Hemoglobin mass conc (Bld) 15.0 g/dL Normal 13.5-18.0 [facility] Comment on above: Performed By: #### 2 782781 #### [employer] [address] [place] [address] MCH Entitic mass (RBC) 29.8 pg Normal 27.0-31.0 [facility] Comment on above: Performed By: #### 2 298530 #### [employer] [address] [place] [address] MCHC mass conc (RBC) 33.4 g/dL Normal 33.0-37.0 [facility] Comment on above: Performed By: #### 2 940020 #### [employer] [address] [place] [address] MCV Entitic volume (RBC) 89.4 fL Normal 78.0-100.0 [facility] Comment on above: Performed By: #### 2 264247 #### [employer] [facility] [place] [address] Platelet mean volume Entitic volume (Bld) 10.8 fL Normal 7.4-11.0 [facility] Comment on above: Performed By: #### 2 881208 #### [employer] [address] [place] [id number] Platelets #/vol (Bld) 158 E3/mcL Normal 130-400 [facility] Comment on above: Performed By: #### 2 957101 #### [employer] [address] [place] [address] RBC #/vol (Bld) 5.04 E6/mcL Normal 3.90-6.10 [facility] Comment on above: Performed By: #### 2 852478 #### [employer] [facility] [place] [address] WBC #/vol (Bld) 7.2 E3/mcL Normal 3.6-11.0 [facility] Comment on above: Performed By: #### 2 248175 #### [employer] [facility] [place] [address] CT Head or Brain w/o Contras ton 09-14-2018 CT Head or Brain w/o Contrast Exam Date/Time: 09/14/2018 15:21 EDT Reason for Exam: Injury Report STUDY: CT Head or Brain w/o Contrast; 09/14/2018 3:21 pm INDICATION: Injury. COMPARISON: 11/28/2016 ACCESSION NUMBER(S): [id number] ORDERING CLINICIAN: Kirsty Nguyen TECHNIQUE: Volume acquisition [...] by: Radha Olivarez MD Technologist: IZAIAH Normal [facility] CT Spine Cervical w/o Contra ston 09-14-2018 CT Spine Cervical w/o Contrast Exam Date/Time: 09/14/2018 15:22 EDT Reason for Exam: Trauma Report STUDY: CT Spine Cervical w/o Contrast; 09/14/2018 3:22 pm INDICATION: Trauma. COMPARISON: None. ACCESSION NUMBER(S): [id number] ORDERING CLINICIAN: Kirsty Nguyen TECHNIQUE: Axial CT [...] (Electronic Signature): 09/14/2018 3:28 pm Signed by: Radah Olivarez MD Technologist: IZAIAH Normal [facility] Glucose POCon 09-14-2018 Glucose mass conc 132 mg/dL High 70-99 [facility] Comment on above: Performed By: #### 2 [id number] #### [employer] [address] [place] [address] [id number] 09-14-2018 Hemoglobin A1c/Hemoglobin.total mass fraction (Bld) 6.9 % High 4.0-6.3 [facility] Comment on above: Performed By: #### 2 888306 #### [employer] [address] [place] [address] Magnesiumon 09-14-2018 Magnesium mass conc 2.0 Int._Unit/L Normal 1.6-2.4 [facility] Comment on above: Performed By: #### 2 581586 #### [employer] [address] [place] [address] PTon 09-14-2018 INR Coag RelTime (PPP) 1.0 {INR} Normal 0.9-1.1 [facility] Comment on above: Result Comment: INR Recommended Therapeutic ranges: Prophylaxis/treatment of DVT and PE..........2.0-3.0 Prevention of systemic embolism.................2.0-3.0 Mechanical prosthetic values........................2.5-3.5 CRITICAL VALUE.........................................> 4.0 NOTE: New methodology started 05/16/2018 Performed By: #### 2 114856 #### [employer] [facility] [place] [address] Prothrombin time (PT) Coag time (PPP) 11.8 second(s) Normal 9.7-12.7 [facility] Comment on above: Result Comment: NOTE : New reference range established on 05/16/2018 due to change in methodology. Performed By: #### 2 360449 #### [employer] [facility] [place] [address] PTTon 09-14-2018 aPTT Coag time (Bld) 32 second(s) Normal 28-38 [facility] Comment on above: Result Comment: NOTE :New reference range established 05/16/2018 due to change in methodology. Performed By: #### 2 [id number] #### [employer] [address] [place] [address] TSHon 09-14-2018 Thyrotropin Qn 5.25 mcIU/mL Normal 0.30-5.60 [facility] Comment on above: Performed By: #### 2 086198 #### [employer] [address] [place] [address] Troponin-Ion 09-14-2018 Troponin I.cardiac mass conc 0.02 ng/mL Normal 0.00-0.03 [facility] Comment on above: Performed By: #### 2 525909 #### [employer] [address] [place] [address] UA Completeon 09-14-2018 Color Nom (U) Straw Normal Yellow [facility] Comment on above: Performed By: #### 2 993492 #### [employer] [facility] [place] [address] Glucose mass conc (U) Negative Normal Negative [facility] Comment on above: Performed By: #### 2 597387 #### [employer] [address] [place] [address] Ketones Ql (U) Negative Normal Negative [facility] Comment on above: Performed By: #### 2 359320 #### [employer] [address] [place] [address] UA Blood Negative Normal Negative [facility] Comment on above: Performed By: #### 2 [id number] #### [employer] [address] [place] [address] UA Clarity Clear Normal Clear [facility] Comment on above: Performed By: #### 2 [id number] #### [employer] [address] [place] [address] UA Hyal Cast 3-5 Abnormal 0-2 [facility] Comment on above: Performed By: #### 2 008572 #### [employer] [address] [place] [address] UA Leuk Est Negative Normal Negative [facility] Comment on above: Performed By: #### 2 247472 #### [employer] [address] [place] [address] UA Mucous Trace Abnormal Trace [facility] Comment on above: Performed By: #### 2 563460 #### [employer] [address] [place] [address] UA Nitrite Negative Normal Negative [facility] Comment on above: Performed By: #### 2 936538 #### [employer] [address] [place] [address] UA pH 5.0 Normal 4.6-8.0 [facility] Comment on above: Performed By: #### 2 949316 #### [employer] [address] [place] [address] UA Protein Negative Normal Negative [facility] Comment on above: Performed By: #### 2 505439 #### [employer] [address] [place] [id number] UA Spec Grav 1.009 Normal 1.003-1.030 [facility] Comment on above: Performed By: #### 2 296236 #### [employer] [address] [place] [address] UA Urobilinogen Negative Normal [facility] Comment on above: Result Comment: Due to a manufacturing issue, low positive urobilinogen results may be fasely positive. Correlate with urine bilirubin and additional clinical/laboratory findings to assess the risk of hemolytic anemia or liver disease. If clinically indicated, repeat testing with an alternate method is available by contacting the laboratory within 24 hours. Performed By: #### 2 [id number] #### [employer] [facility] [place] [id number] Urobilinogen Qn (U) Negative Normal Negative [facility] Comment on above: Performed By: #### 2 [id number] #### [employer] [address] [place] [id number] XR Chest AP Portableon 09-14 XR Chest AP Portable Exam Date/Time: 09/14/2018 15:43 EDT Reason for Exam: Chest pain Report STUDY: XR Chest AP Portable; 09/14/2018 3:43 pm INDICATION: Chest pain. COMPARISON: 12/25/2016 ACCESSION NUMBER(S): [id number] ORDERING CLINICIAN: Kirsty Manocchio FINDINGS: CARDIOMEDIASTINAL SILHOUETTE: Cardiomediastinal silhouette is normal [...] pm Signed by: Iva Vargas MD Technologist: [facility] XR Humerus Lefton 09-14-2018 XR Humerus Left Exam Date/Time: 09/14/2018 15:43 EDT Reason for Exam: Pain, Traumatic Report STUDY: XR Humerus Left; XR Shoulder Complete Left;; 09/14/2018 3:43 pm INDICATION: Pain, Traumatic. COMPARISON: None. ACCESSION NUMBER(S): [id number]; [id number] ORDERING CLINICIAN: Kirsty Nguyen FINDINGS: Five views [...] pm Signed by: Iva Vargas MD Technologist: [facility] XR Knee Complete Righton XR Knee Complete Right Exam Date/Time: 09/14/2018 15:43 EDT Reason for Exam: Pain, Traumatic Report STUDY: XR Knee Complete Right;; 09/14/2018 3:43 pm INDICATION: Pain, Traumatic. COMPARISON: None. ACCESSION NUMBER(S): [id number] ORDERING CLINICIAN: Kirsty Manocchio FINDINGS: Four views right knee: There is no fracture, dislocation or joint effusion. There is swelling anterior to the patella and infrapatellar tendon. IMPRESSION: No acute bony abnormality right knee, soft tissue swelling. FINAL REPORT Dictated: 09/14/2018 4:19 pm Iva Vargas MD Signed (Electronic Signature): 09/14/2018 4:19 pm Signed by: Iva Vargas MD Technologist: [facility] XR Shoulder Complete Lefton 09-14-2018 XR Shoulder Complete Left Exam Date/Time: 09/14/2018 15:43 EDT Reason for Exam: Pain, Traumatic Report STUDY: XR Humerus Left; XR Shoulder Complete Left;; 09/14/2018 3:43 pm INDICATION: Pain, Traumatic. COMPARISON: None. ACCESSION NUMBER(S): [id number]; [id number] ORDERING CLINICIAN: Kirsty Nguyen FINDINGS: Five views [...] pm Signed by: Iva Vargas MD Technologist: [facility] eGFRon 09-14-2018 GFR/1.73 sq M predicted among non-blacks MDRD vol rate/area (S/P/Bld) mL/min/{1.73_m2} [facility] Comment on above: Order Comment: Order added by Discern Expert. Performed By: #### 1 [id number] #### [place] [address] Vital Signs Date Time Vital Sign Value Performing Clinician Facility 10-31-2024 07:44-0400 Body mass index (BMI) [Ratio] 35.4 kg/m2 Dr. Marycarmen Rodriguez DO Work Phone: [facility] 10-31-2024 07:44-0400 Body temperature 97.1 [degF] Dr. Marycarmen Rodriguez DO Work Phone: [facility] 10-31-2024 07:44-0400 Body weight 108.[address] Marycarmen Rodriguez DO Work Phone: [facility] 10-31-2024 07:44-0400 Diastolic blood pressure 75 mm[Hg] Dr. Marycarmen Rodriguez DO Work Phone: [facility] 10-31-2024 07:44-0400 Heart rate 64 /min Dr. Marycarmen Rodriguez DO Work Phone: [facility] 10-31-2024 07:44-0400 Respiratory rate 20 /min Dr. Marycarmen Rodriguez DO Work Phone: [facility] 10-31-2024 07:44-0400 SaO2% (BldA) [Mass fraction] 97 % Dr. Marycarmen Rodriguez DO Work Phone: [facility] 10-31-2024 07:44-0400 Systolic blood pressure 135 mm[Hg] Dr. Marycarmen Rodriguez DO Work Phone: [facility] 10-25-2024 08:10-0400 Body height 175.[address] Marycarmen Rodriguez DO Work Phone: [facility] 10-25-2024 08:10-0400 Body mass index (BMI) [Ratio] 35.9 kg/m2 Dr. Marycarmen Rodriguez DO Work Phone: [facility] 10-25-2024 08:10-0400 Body weight 110.[address] Marycarmen Rodriguez DO Work Phone: [facility] 10-25-2024 08:10-0400 Diastolic blood pressure 85 mm[Hg] Dr. Marycarmen Rodriguez DO Work Phone: [facility] 10-25-2024 08:10-0400 Heart rate 85 /min Dr. Marycarmen Rodriguez DO Work Phone: [facility] 10-25-2024 08:10-0400 Respiratory rate 18 /min Dr. Marycarmen Rodriguez DO Work Phone: [facility] 10-25-2024 08:10-0400 Systolic blood pressure 121 mm[Hg] Dr. Marycarmen Rodriguez DO Work Phone: [facility] 09-20-2024 09:15-0400 Body height 175.[address] Marycarmen Rodriguez DO Work Phone: [facility] 09-20-2024 09:15-0400 Body mass index (BMI) [Ratio] 35.6 kg/m2 Dr. Marycarmen Rodriguez DO Work Phone: [facility] 09-20-2024 09:15-0400 Body temperature 96.8 [degF] Dr. Marycarmen Rodriguez DO Work Phone: [facility] 09-20-2024 09:15-0400 Body weight 109.[address] Marycarmen Rodriguez DO Work Phone: [facility] 09-20-2024 09:15-0400 Diastolic blood pressure 77 mm[Hg] Dr. Marycarmen Rodriguez DO Work Phone: [facility] 09-20-2024 09:15-0400 Heart rate 66 /min Dr. Marycarmen Rodriguez DO Work Phone: [facility] 09-20-2024 09:15-0400 Respiratory rate 18 /min Dr. Marycarmen Rodriguez DO Work Phone: [facility] 09-20-2024 09:15-0400 SaO2% (BldA) [Mass fraction] 97 % Dr. Marycarmen Rodriguez DO Work Phone: [facility] 09-20-2024 09:15-0400 Systolic blood pressure 121 mm[Hg] Dr. Marycarmen Rodriguez DO Work Phone: [facility] 07-18-2024 06:00-0400 Body height 175.[address] Marycarmen Rodriguez DO Work Phone: [facility] 07-18-2024 06:00-0400 Body weight 104.[address] Marycarmen Rodriguez DO Work Phone: [facility] 07-18-2024 06:00-0400 Heart rate 69 /min Dr. Marycarmen Rodriguez DO Work Phone: [facility] 07-18-2024 06:00-0400 SaO2% (BldA) [Mass fraction] 97 % Dr. Marycarmen Rodriguez DO Work Phone: [facility] 07-03-2024 08:35-0500 Body mass index (BMI) [Ratio] 36.6 kg/m2 Dr. Marycarmen Rodriguez DO Work Phone: [facility] 07-03-2024 08:35-0500 Body temperature 97.5 [degF] Dr. Marycarmen Rodriguez DO Work Phone: [facility] 07-03-2024 08:35-0500 Body weight 109.[address] Marycarmen Rodriguez DO Work Phone: [facility] 07-03-2024 08:35-0500 Diastolic blood pressure 77 mm[Hg] Dr. Marycarmen Rodriguez DO Work Phone: [facility] 07-03-2024 08:35-0500 Heart rate 72 /min Dr. Marycarmen Rodriguez DO Work Phone: [facility] 07-03-2024 08:35-0500 Respiratory rate 20 /min Dr. Marycarmen Rodriguez DO Work Phone: [facility] 07-03-2024 08:35-0500 SaO2% (BldA) [Mass fraction] 96 % Dr. Marycarmen Rodriguez DO Work Phone: [facility] 07-03-2024 08:35-0500 Systolic blood pressure 116 mm[Hg] Dr. Marycarmen Rodriguez DO Work Phone: [facility] 04-17-2024 15:55-0500 Body height [address] Marycarmen Rodriguez DO Work Phone: [facility] 04-17-2024 15:55-0500 Body mass index (BMI) [Ratio] 36.9 kg/m2 Dr. Marycarmen Rodriguez DO Work Phone: [facility] 04-17-2024 15:55-0500 Body weight 110.[address] Marycarmen Rodriguez DO Work Phone: [facility] 04-17-2024 15:55-0500 Diastolic blood pressure 53 mm[Hg] Dr. Marycarmen Rodriguez DO Work Phone: [facility] 04-17-2024 15:55-0500 Heart rate 70 /min Dr. Marycarmen Rodriguez DO Work Phone: [facility] 04-17-2024 15:55-0500 Respiratory rate 18 /min Dr. Marycarmen Rodriguez DO Work Phone: [facility] 04-17-2024 15:55-0500 SaO2% (BldA) [Mass fraction] 94 % Dr. Marycarmen Rodriguez DO Work Phone: [facility] 04-17-2024 15:55-0500 Systolic blood pressure 91 mm[Hg] Dr. Marycarmen Rodriguez DO Work Phone: [facility] 03-27-2024 10:17-0500 Diastolic blood pressure 79 mm[Hg] Dr. Marycarmen Rodriguez DO Work Phone: [facility] 03-27-2024 10:17-0500 Heart rate 67 /min Dr. Marycarmen Rodriguez DO Work Phone: [facility] 03-27-2024 10:17-0500 Respiratory rate 18 /min Dr. Marycarmen Rodriguez DO Work Phone: [facility] 03-27-2024 10:17-0500 Systolic blood pressure 134 mm[Hg] Dr. Marycarmen Rodriguez DO Work Phone: [facility] 03-20-2024 08:28-0500 Body mass index (BMI) [Ratio] 37.5 kg/m2 Dr. Marycarmen Rodriguez DO Work Phone: [facility] 03-20-2024 08:28-0500 Body weight 112.[address] Marycarmen Rodriguez DO Work Phone: [facility] 03-20-2024 08:28-0500 Diastolic blood pressure 89 mm[Hg] Dr. Marycarmen Rodriguez DO Work Phone: [facility] 03-20-2024 08:28-0500 Heart rate 61 /min Dr. Marycarmen Rodriguez DO Work Phone: [facility] 03-20-2024 08:28-0500 Respiratory rate 18 /min Dr. Marycarmen Rodriguez DO Work Phone: [facility] 03-20-2024 08:28-0500 Systolic blood pressure 141 mm[Hg] Dr. Marycarmen Rodriguez DO Work Phone: [facility] 12-21-2022 07:51-0400 Body height 172.[address] Marycarmen Rodriguez Work Phone: [facility] 12-21-2022 07:51-0400 Body weight 85.[address] Marycarmen Rodriguez Work Phone: [facility] 12-18-2022 08:27-0400 Body mass index (BMI) [Ratio] 28.7 kg/m2 Dr. Marycarmen Rodriguez Work Phone: [facility] 12-15-2022 13:03-0400 Body mass index (BMI) [Ratio] 28.7 kg/m2 Dr. Marycarmen Rodriguez Work Phone: [facility] 12-15-2022 13:03-0400 Body weight 85.[address] Marycarmen Rodriguez Work Phone: [facility] 12-15-2022 13:03-0400 Diastolic blood pressure 92 mm[Hg] Dr. Marycarmen Rodriguez Work Phone: [facility] 12-15-2022 13:03-0400 Heart rate 72 /min Dr. Marycarmen Rodriguez Work Phone: [facility] 12-15-2022 13:03-0400 Respiratory rate 16 /min Dr. Marycarmen Rodriguez Work Phone: [facility] 12-15-2022 13:03-0400 Systolic blood pressure 156 mm[Hg] Dr. Marycarmen Rodriguez Work Phone: [facility] 10-13-2022 10:59-0400 Body height 172.72 cm Marycarmen [facility] 10-13-2022 10:59-0400 Body mass index (BMI) [Ratio] 25.4 kg/m2 [facility] 10-13-2022 10:59-0400 Body weight 75.74 kg [facility] 10-13-2022 10:59-0400 Diastolic blood pressure 75 mm[Hg] [facility] 10-13-2022 10:59-0400 Heart rate 65 /min [facility] 10-13-2022 10:59-0400 Respiratory rate 18 /min [facility] 10-13-2022 10:59-0400 SaO2% (BldA) [Mass fraction] 94 % [facility] 10-13-2022 10:59-0400 Systolic blood pressure 143 mm[Hg] [facility] 09-21-2022 15:30-0400 Body mass index (BMI) [Ratio] 34.7 kg/m2 [facility] 09-21-2022 15:27-0400 Body temperature 98 [degF] Marycarmen [facility] 09-21-2022 15:27-0400 Diastolic blood pressure 84 mm[Hg] Marycarmen [facility] 09-21-2022 15:27-0400 Heart rate 79 /min Marycarmen Jennifer [facility] 09-21-2022 15:27-0400 Respiratory rate 17 /min Marycarmen Jennifer [facility] 09-21-2022 15:27-0400 SaO2% (BldA) [Mass fraction] 96 % Marycarmen [facility] 09-21-2022 15:27-0400 Systolic blood pressure 143 mm[Hg] Marycarmen [facility] 09-21-2022 06:25-0400 Body weight 103.6 kg Marycarmen [facility] 09-19-2022 01:30-0400 Inhaled oxygen concentration 21 % Marycarmen [facility] 09-01-2022 09:59-0400 Diastolic blood pressure 68 mm[Hg] Marycarmen [facility] 09-01-2022 09:59-0400 Heart rate 49 /min Marycarmen Jennifer [facility] 09-01-2022 09:59-0400 Systolic blood pressure 127 mm[Hg] Marycarmen [facility] 09-01-2022 09:57-0400 Body temperature 97.9 [degF] Marycarmen [facility] 09-01-2022 09:57-0400 Respiratory rate 18 /min Marycarmen [facility] 09-01-2022 09:57-0400 SaO2% (BldA) [Mass fraction] 93 % Marycarmen [facility] 09-01-2022 04:08-0400 Body mass index (BMI) [Ratio] 35.2 kg/m2 Marycarmen [facility] 09-01-2022 04:08-0400 Body weight 108.2 kg Marycarmen [facility] 08-31-2022 11:42-0400 Body height 175.26 cm Marycarmen [facility] 08-19-2022 10:01-0400 Body height 175.26 cm Marycarmen Jennifer [facility] 08-19-2022 10:01-0400 Body mass index (BMI) [Ratio] 35.4 kg/m2 Marycarmen Jennifer [facility] 08-19-2022 10:01-0400 Body weight 109.03 kg Marycarmen Jenniferdiogenes SWAIN [facility] 08-19-2022 10:01-0400 Diastolic blood pressure 79 mm[Hg] Marycarmen Jennifer [facility] 08-19-2022 10:01-0400 Heart rate 62 /min Marycarmen Jennifer [facility] 08-19-2022 10:01-0400 Respiratory rate 18 /min Marycarmen Jennifer SWAIN [facility] 08-19-2022 10:01-0400 Systolic blood pressure 144 mm[Hg] Marycarmen Jennifer [facility] 04-16-2022 12:43-0500 Body height 175.[address] Marycarmen Rodriguez Work Phone: [facility] 04-16-2022 12:43-0500 Body mass index (BMI) [Ratio] 35.2 kg/m2 Dr. Marycarmen Rodriguez Work Phone: [facility] 04-16-2022 12:43-0500 Body temperature 97 [degF] Dr. Marycarmen Rodriguez Work Phone: [facility] 04-16-2022 12:43-0500 Body weight 108.[address] Marycarmen Rodriguez Work Phone: [facility] 04-16-2022 12:43-0500 Diastolic blood pressure 78 mm[Hg] Dr. Marycarmen Rodriguez Work Phone: [facility] 04-16-2022 12:43-0500 Heart rate 66 /min Dr. Marycarmen Rodriguez Work Phone: [facility] 04-16-2022 12:43-0500 Respiratory rate 18 /min Dr. Marycarmen Rodriguez Work Phone: [facility] 04-16-2022 12:43-0500 SaO2% (BldA) [Mass fraction] 94 % Dr. Marycarmen Rodriguez Work Phone: [facility] 04-16-2022 12:43-0500 Systolic blood pressure 125 mm[Hg] Dr. Marycarmen Rodriguez Work Phone: [facility] 04-14-2022 10:27-0500 Body mass index (BMI) [Ratio] 35.2 kg/m2 Dr. Marycarmen Rodriguez Work Phone: [facility] 04-14-2022 10:27-0500 Body weight 108.[address] Marycarmen Rodriguez Work Phone: [facility] 04-14-2022 10:27-0500 Diastolic blood pressure 68 mm[Hg] Dr. Marycarmen Rodriguez Work Phone: [facility] 04-14-2022 10:27-0500 Heart rate 64 /min Dr. Marycarmen Rodriguez Work Phone: [facility] 04-14-2022 10:27-0500 Respiratory rate 18 /min Dr. Marycarmen Rodriguez Work Phone: [facility] 04-14-2022 10:27-0500 Systolic blood pressure 130 mm[Hg] Dr. Marycarmen Rodriguez Work Phone: [facility] 03-27-2022 13:25-0500 Body temperature 97.9 [degF] Dr. Marycarmen Rodriguez Work Phone: [facility] 03-27-2022 13:25-0500 Diastolic blood pressure 86 mm[Hg] Dr. Marycarmen Rodriguez Work Phone: [facility] 03-27-2022 13:25-0500 Heart rate 86 /min Dr. Marycarmen Rodriguez Work Phone: [facility] 03-27-2022 13:25-0500 Respiratory rate 14 /min Dr. Marycarmen Rodriguez Work Phone: [facility] 03-27-2022 13:25-0500 SaO2% (BldA) [Mass fraction] 96 % Dr. Marycarmen Rodriguez Work Phone: [facility] 03-27-2022 13:25-0500 Systolic blood pressure 134 mm[Hg] Dr. Marycarmen Rodriguez Work Phone: [facility] 01-07-2022 11:07-0400 Body mass index (BMI) [Ratio] 34.9 kg/m2 Dr. Marycarmen Rodriguez Work Phone: [facility] Work Phone: 01-07-2022 11:07-0400 Body temperature 97.4 [degF] Dr. Marycarmen Rodriguez Work Phone: [facility] Work Phone: 01-07-2022 11:07-0400 Body weight 107.[address] Marycarmen Rodriguez Work Phone: [facility] Work Phone: 01-07-2022 11:07-0400 Diastolic blood pressure 87 mm[Hg] Dr. Marycarmen Rodriguez Work Phone: [facility] Work Phone: 01-07-2022 11:07-0400 Heart rate 60 /min Dr. Marycarmen Rodriguez Work Phone: [facility] Work Phone: 01-07-2022 11:07-0400 Respiratory rate 16 /min Dr. Marycarmen Rodriguez Work Phone: [facility] Work Phone: 01-07-2022 11:07-0400 SaO2% (BldA) [Mass fraction] 96 % Dr. Marycarmen Rodriguez Work Phone: [facility] Work Phone: 01-07-2022 11:07-0400 Systolic blood pressure 155 mm[Hg] Dr. Marycarmen Rodriguez Work Phone: [facility] Work Phone: 11-21-2021 10:24-0400 Body height 175.[address] Marycarmen Rodriguez Work Phone: [facility] Work Phone: 11-21-2021 10:24-0400 Body mass index (BMI) [Ratio] 34.9 kg/m2 Dr. Marycarmen Rodriguez Work Phone: [facility] Work Phone: 11-21-2021 10:24-0400 Body weight 107.[address] Marycarmen Rodriguez Work Phone: [facility] Work Phone: 11-21-2021 10:24-0400 Diastolic blood pressure 77 mm[Hg] Dr. Marycarmen Rodriguez Work Phone: [facility] Work Phone: 11-21-2021 10:24-0400 Heart rate 61 /min Dr. Marycarmen Rodriguez Work Phone: [facility] Work Phone: 11-21-2021 10:24-0400 Respiratory rate 18 /min Dr. Marycarmen Rodriguez Work Phone: [facility] Work Phone: 11-21-2021 10:24-0400 SaO2% (BldA) [Mass fraction] 97 % Dr. Marycarmen Rodriguez Work Phone: [facility] Work Phone: 11-21-2021 10:24-0400 Systolic blood pressure 138 mm[Hg] Dr. Marycarmen Rodriguez Work Phone: [facility] Work Phone: 11-16-2021 16:49-0400 Diastolic blood pressure 87 mm[Hg] Dr. Marycarmen Rodriguez Work Phone: [facility] Work Phone: 11-16-2021 16:49-0400 Heart rate 53 /min Dr. Marycarmen Rodriguez Work Phone: [facility] Work Phone: 11-16-2021 16:49-0400 Respiratory rate 16 /min Dr. Marycarmen Rodriguez Work Phone: [facility] Work Phone: 11-16-2021 16:49-0400 SaO2% (BldA) [Mass fraction] 93 % Dr. Marycarmen Rodriguez Work Phone: [facility] Work Phone: 11-16-2021 16:49-0400 Systolic blood pressure 117 mm[Hg] Dr. Marycarmen Rodriguez Work Phone: [facility] Work Phone: 11-16-2021 12:55-0400 Body mass index (BMI) [Ratio] 33.2 kg/m2 Dr. Marycarmen Rodriguez Work Phone: [facility] Work Phone: 11-16-2021 12:55-0400 Body temperature 97.6 [degF] Dr. Marycarmen Rodriguez Work Phone: [facility] Work Phone: 11-16-2021 12:55-0400 Body weight 102.[address] Marycarmen Rodriguez Work Phone: [facility] Work Phone: 09-16-2021 10:37-0400 Body height 175.[address] Marycarmen Rodriguez Work Phone: [facility] Work Phone: 09-16-2021 10:37-0400 Body mass index (BMI) [Ratio] 35.7 kg/m2 Dr. Marycarmen Rodriguez Work Phone: [facility] Work Phone: 09-16-2021 10:37-0400 Body weight 109.[address] Marycarmen Rodriguez Work Phone: [facility] Work Phone: 09-16-2021 10:37-0400 Diastolic blood pressure 69 mm[Hg] Dr. Marycarmen Rodriguez Work Phone: [facility] Work Phone: 09-16-2021 10:37-0400 Heart rate 50 /min Dr. Marycarmen Rodriguez Work Phone: [facility] Work Phone: 09-16-2021 10:37-0400 Respiratory rate 18 /min Dr. Marycarmen Rodriguez Work Phone: [facility] Work Phone: 09-16-2021 10:37-0400 Systolic blood pressure 122 mm[Hg] Dr. Marycarmen Rodriguez Work Phone: [facility] Work Phone: 08-01-2021 10:02-0400 Body mass index (BMI) [Ratio] 35.7 kg/m2 Dr. Marycarmen Rodriguez Work Phone: [facility] Work Phone: 08-01-2021 10:02-0400 Body weight 109.[address] Marycarmen Rodriguez Work Phone: [facility] Work Phone: 08-01-2021 10:02-0400 Diastolic blood pressure 81 mm[Hg] Dr. Marycarmen Rodriguez Work Phone: [facility] Work Phone: 08-01-2021 10:02-0400 Heart rate 59 /min Dr. Marycarmen Rodriguez Work Phone: [facility] Work Phone: 08-01-2021 10:02-0400 Respiratory rate 18 /min Dr. Marycarmen Rodriguez Work Phone: [facility] Work Phone: 08-01-2021 10:02-0400 SaO2% (BldA) [Mass fraction] 97 % Dr. Marycarmen Rodriguez Work Phone: [facility] Work Phone: 08-01-2021 10:02-0400 Systolic blood pressure 133 mm[Hg] Dr. Marycarmen Rodriguez Work Phone: [facility] Work Phone: 08-01-2021 10:02-0400 Body height 175.[address] Marycarmen Rodriguez Work Phone: [facility] Work Phone: 08-01-2021 10:02-0400 Body mass index (BMI) [Ratio] 35.7 kg/m2 Dr. Marycarmen Rodriguez Work Phone: [facility] Work Phone: 08-01-2021 10:02-0400 Body weight 109.[address] Marycarmen Rodriguez Work Phone: [facility] Work Phone: 08-01-2021 10:02-0400 Diastolic blood pressure 81 mm[Hg] Dr. Marycarmen Rodriguez Work Phone: [facility] Work Phone: 08-01-2021 10:02-0400 Heart rate 59 /min Dr. Marycarmen Rodriguez Work Phone: [facility] Work Phone: 08-01-2021 10:02-0400 Respiratory rate 18 /min Dr. Marycarmen Rodriguez Work Phone: [facility] Work Phone: 08-01-2021 10:02-0400 SaO2% (BldA) [Mass fraction] 97 % Dr. Marycarmen Rodriguez Work Phone: [facility] Work Phone: 08-01-2021 10:02-0400 Systolic blood pressure 133 mm[Hg] Dr. Marycarmen Rodriguez Work Phone: [facility] Work Phone: 06-10-2021 18:38-0500 Diastolic blood pressure 75 mm[Hg] Dr. Marycarmen Rodriguez Work Phone: [facility] Work Phone: 06-10-2021 18:38-0500 Heart rate 57 /min Dr. Marycarmen Rodriguez Work Phone: [facility] Work Phone: 06-10-2021 18:38-0500 Respiratory rate 14 /min Dr. Marycarmen Rodriguez Work Phone: [facility] Work Phone: 06-10-2021 18:38-0500 SaO2% (BldA) [Mass fraction] 96 % Dr. Marycarmen Rodriguez Work Phone: [facility] Work Phone: 06-10-2021 18:38-0500 Systolic blood pressure 121 mm[Hg] Dr. Marycarmen Rodriguez Work Phone: [facility] Work Phone: 06-10-2021 13:36-0500 Body mass index (BMI) [Ratio] 34 kg/m2 Dr. Marycarmen Rodriguez Work Phone: [facility] Work Phone: 06-10-2021 13:36-0500 Body temperature 97 [degF] Dr. Marycarmen Rodriguez Work Phone: [facility] Work Phone: 06-10-2021 13:36-0500 Body weight 104.[address] Marycarmen Rodriguez Work Phone: [facility] Work Phone: 05-19-2021 16:55-0500 Respiratory rate 16 /min Dr. Marycarmen Rodriguez Work Phone: [facility] Work Phone: 05-19-2021 14:43-0500 Body temperature 96.5 [degF] Dr. Marycarmen Rodriguez Work Phone: [facility] Work Phone: 05-19-2021 14:43-0500 Diastolic blood pressure 94 mm[Hg] Dr. Marycarmen Rodriguez Work Phone: [facility] Work Phone: 05-19-2021 14:43-0500 Heart rate 63 /min Dr. Marycarmen Rodriguez Work Phone: [facility] Work Phone: 05-19-2021 14:43-0500 SaO2% (BldA) [Mass fraction] 99 % Dr. Marycarmen Rodriguez Work Phone: [facility] Work Phone: 05-19-2021 14:43-0500 Systolic blood pressure 172 mm[Hg] Dr. Marycarmen Rodriguez Work Phone: [facility] Work Phone: 05-19-2021 14:42-0500 Body mass index (BMI) [Ratio] 34 kg/m2 Dr. Marycarmen Rodriguez Work Phone: [facility] Work Phone: 05-19-2021 14:42-0500 Body weight 104.[address] Marycarmen Rodriguez Work Phone: [facility] Work Phone: 12-26-2020 10:29-0400 Diastolic blood pressure 76 mm[Hg] Eladio Ingram MD Work Phone: [facility] 12-26-2020 10:29-0400 Systolic blood pressure 141 mm[Hg] Eladio Ingram MD Work Phone: [facility] 12-26-2020 10:24-0400 Body height 175.3 cm Eladio Ingram MD Work Phone: [facility] 12-26-2020 10:24-0400 Body mass index (BMI) [Ratio] 33.67 kg/m2 Eladio Ingram MD Work Phone: [facility] 12-26-2020 10:24-0400 Body weight 103.42 kg Eladio Ingram MD Work Phone: [facility] 12-26-2020 10:24-0400 Heart rate 59 /min Eladio Ingram MD Work Phone: [facility] 12-26-2020 10:24-0400 SaO2% (BldA) [Mass fraction] 95 % Eladio Ingram MD Work Phone: [facility] 10-09-2020 10:53-0400 Diastolic blood pressure 72 mm[Hg] Fernanda Acuña CNP Work Phone: [facility] 10-09-2020 10:53-0400 Systolic blood pressure 134 mm[Hg] Fernanda Acuña APPLICATOR SPRAYER Work Phone: [facility] 10-09-2020 09:59-0400 Body mass index (BMI) [Ratio] 34.6 kg/m2 Fernanda Acuña APPLICATOR SPRAYER Work Phone: [facility] 10-09-2020 09:59-0400 Body weight 106.28 kg Fernanda Acuña CNP Work Phone: [facility] 10-09-2020 09:59-0400 Heart rate 58 /min Fernanda Acuña APPLICATOR SPRAYER Work Phone: [facility] 10-09-2020 09:59-0400 Respiratory rate 16 /min Fernanda Acuña APPLICATOR SPRAYER Work Phone: [facility] 10-09-2020 09:59-0400 SaO2% (BldA) [Mass fraction] 94 % Fernanda Acuña APPLICATOR SPRAYER Work Phone: [facility] 12-17-2016 11:21-0400 BMI (Body Mass Index) 32.99 kg/m2 [facility] Work Phone: 12-17-2016 11:21-0400 BP Diastolic 82 mm[Hg] Eladio Ingram [facility] Work Phone: 12-17-2016 11:21-0400 BP Systolic 150 mm[Hg] Eladio Ingram [facility] Work Phone: 12-17-2016 11:21-0400 Height 175.3 cm Eladio Ingram [facility] Work Phone: 12-17-2016 11:21-0400 Pulse (Heart Rate) 70 /min Eladio Ingram [facility] Work Phone: 12-17-2016 11:21-0400 Pulse Oximetry 97 % Eladio Ingram [facility] Work Phone: 12-17-2016 11:21-0400 Weight 101.33 kg Eladio Ingram [facility] Work Phone: Encounters Encounter Date Encounter Type Care Provider Facility Start: 11-20-2024 ambulatory Marycarmen Rodriguez Facility: [facility] Start: 10-31-2024 End: 10-31-2024 Patient encounter procedure ELIAZAR Olivas -[facility] Work Phone: Start: 10-31-2024 End: 10-31-[address] Marycarmen Rodriguez DO Work Phone: -[facility] Start: 10-26-2024 End: 10-26-[address] Marycarmen Rodriguez DO Work Phone: -[facility] Start: 10-26-2024 End: 10-26-2024 Patient encounter procedure Marni Horn HOOKER OPERATOR-C -[facility] Work Phone: Start: 10-25-2024 End: 10-25-2024 Patient encounter procedure Gustabo Pérez HOOKER OPERATOR-C -[facility] Work Phone: Start: 10-25-2024 End: 10-26-[address] Marycarmen Rodriguez DO Work Phone: [facility] Work Phone: Start: 10-18-2024 End: 10-18-[address] Marycarmen Rodriguez DO Work Phone: [facility] Work Phone: Start: 10-18-2024 End: 10-18-2024 Patient encounter procedure Marni PRAKASHC -[facility] Work Phone: Start: 10-18-2024 End: 10-18-[address] Marycarmen Rodriguez DO Work Phone: [facility] Work Phone: Start: 10-18-2024 End: 10-18-[address] Brooks Carpenter MD -Laboratory Work Phone: Start: 10-18-2024 End: 10-18-2024 ambulatory Marycarmen Jennifer Facility:[facility] Start: 09-29-2024 End: 09-29-[address] Marycarmen Rodriguez DO Work Phone: [facility] Work Phone: Start: 09-29-2024 End: 09-29-[address] Marycarmen Rodriguez DO -Laboratory [place] Work Phone: Start: 09-29-2024 End: 09-29-2024 ambulatory Marycarmen Rodriguez Facility:[facility] Start: 09-22-2024 End: 09-22-[address] Marycarmen Rodriguez DO Work Phone: [facility] Work Phone: Start: 09-22-2024 End: 09-22-2024 Patient encounter procedure Marni POOL -[facility] Work Phone: Start: 09-22-2024 End: 09-22-2024 ambulatory Marycarmen Jennifer Facility:[facility] Start: 09-20-2024 End: 09-20-[address] Marycarmen Rodriguez DO Work Phone: [facility] Work Phone: Start: 09-20-2024 End: 09-20-2024 Patient encounter procedure ELIAZAR Olivas -Laboratory Work Phone: Start: 09-20-2024 End: 09-20-2024 Patient encounter procedure ELIAZAR Olivas -[facility] Work Phone: Start: 09-20-2024 End: 09-20-[address] Marycarmen Rodriguez DO Work Phone: [facility] Work Phone: Start: 09-20-2024 End: 09-20-2024 ambulatory Maren Olivas Facility:[facility] Start: 08-03-2024 End: 08-03-[address] Marycarmen Rodriguez DO Work Phone: [facility] Work Phone: Start: 08-03-2024 End: 08-03-2024 Patient encounter procedure Marni PRAKASHC -[facility] Work Phone: Start: 08-03-2024 End: 08-03-2024 ambulatory Marycarmen Rodriguez [facility] [place] Start: 07-18-2024 ambulatory Marycarmen Rodriguez Facility: [facility] [place] Start: 07-18-2024 Non-patient / Non-visit Dr. Zen Olguin own DO -[facility] Start: 07-18-2024 End: 07-18-[address] Marycarmen Rodriguez DO Work Phone: [facility] [place] Work Phone: Start: 07-18-2024 End: 07-18-2024 Patient encounter procedure Marni Horn NP-C -Pulmonary Services/Neurology Work Phone: Start: 07-17-2024 Non-patient / Non-visit Dr. Zen Olguin own DO -[facility] Start: 07-17-2024 End: 07-18-[address] Marycarmen Rodriguez DO Work Phone: [facility] [place] Work Phone: Start: 07-17-2024 End: 07-17-2024 Patient encounter procedure Marni PRAKASHC -Sleep Lab Work Phone: Start: 07-17-2024 End: 07-17-2024 ambulatory [facility] Facility:[facility] [place] Start: 07-07-2024 End: 07-07-[address] Marycarmen Rodriguez DO Work Phone: [facility] [place] Work Phone: Start: 07-07-2024 End: 07-07-2024 Patient encounter procedure Marni POOL -Sleep Lab Work Phone: Start: 07-07-2024 End: 07-07-2024 ambulatory [facility] Facility:[facility] [place] Start: 07-03-2024 End: 07-03-2024 Patient encounter procedure Marni PRAKASHC -[place] [facility] Work Phone: Start: 07-03-2024 End: 07-03-2024 ambulatory Marycarmen [facility] Facility:[facility] [place] Start: 06-30-2024 End: 06-30-[address] Marycarmen Rodriguez DO Work Phone: [facility] [place] Work Phone: Start: 06-30-2024 End: 06-30-[address] Marycarmen Rodriguez DO -Laboratory, [facility] Start: 06-30-2024 End: 06-30-2024 ambulatory [facility] Facility:[facility] [place] Start: 04-17-2024 End: 04-17-2024 Patient encounter procedure Gustabo POOL -[facility] Work Phone: Start: 04-17-2024 End: 04-17-2024 ambulatory [facility] Facility:[facility] [place] Start: 04-17-2024 End: 04-17-2024 ambulatory Gustabo Pérez NP Facility:[facility] [place] Start: 03-27-2024 End: 03-27-[address] Jose Hay MD -[facility] Work Phone: Start: 03-27-2024 End: 03-27-2024 ambulatory [facility] Start: 03-23-2024 End: 03-23-[address] Marycarmen Rodriguez DO -Ritesh Martini [facility] Start: 03-23-2024 End: 03-23-2024 ambulatory [facility] Facility:[facility] [place] Start: 03-20-2024 End: 03-20-[address] Jose Hay MD -[facility] Work Phone: Start: 03-20-2024 End: 03-20-2024 ambulatory [facility] Facility:[facility] [place] Start: 11-18-2023 End: 11-18-2023 ambulatory [facility] Facility:[facility] [place] Start: 05-07-2023 End: 05-07-2023 ambulatory [facility] [place] Work Phone: Start: 05-07-2023 End: 05-07-2023 Patient encounter procedure [facility] [place]-Ritesh Martini [facility] Start: 12-29-2022 Non-patient / Non-visit Dr. Ap Rodriguez Work Phone: [facility] [facility] Work Phone: Start: 12-28-2022 Non-patient / Non-visit Dr. Ap Rodriguez Work Phone: [facility] Start: 12-28-2022 End: 12-28-[address] Marycarmen Rodriguez Work Phone: [facility] [place] Work Phone: Start: 12-28-2022 End: 12-28-[address] Marycarmen Rodriguez Work Phone: [facility] [place]-Cardiovascula r Services Work Phone: Start: 12-21-2022 End: 12-21-2022 Admission to same day surgery center Dr. Marycarmen Rodriguez Work Phone: [facility] [place]-Chemical Analyst/Special Procedures Work Phone: Start: 12-21-2022 End: 12-21-[address] Marycarmen Rodriguez Work Phone: [facility] [place] Work Phone: Start: 12-15-2022 End: 12-15-[address] Marycarmen Rodriguez Work Phone: [facility] [place] Work Phone: Start: 12-15-2022 End: 12-15-[address] Marycarmen Rodriguez Work Phone: [facility] [place]-Laboratory Work Phone: Start: 12-15-2022 End: 12-15-[address] Marycarmen Rodriguez Work Phone: [facility] Work Phone: Start: 10-16-2022 End: 10-16-2022 ambulatory Marycarmen Rodriguez [facility] Work Phone: Start: 10-16-2022 End: 10-16-2022 Patient encounter procedure Marycarmen SWAIN [facility] [place]-Pulmonary Services/Neurology Start: 10-13-2022 End: 10-13-2022 ambulatory Marycarmen SWAIN [facility] [place] Work Phone: Start: 10-13-2022 End: 10-13-2022 Patient encounter procedure Marycarmen SWAIN [facility] Start: 09-21-2022 Non-patient / Non-visit Marycarmen gifford [facility] Start: 09-20-2022 Non-patient / Non-visit Marycarmen gifford [facility] Start: 09-19-2022 Non-patient / Non-visit Marycarmen gifford [facility] Start: 09-18-2022 Non-patient / Non-visit Marycarmen gifford [facility] Start: 09-17-2022 End: 09-17-2022 Non-patient / Non-visit Marycarmen SWAIN [facility] [place] [facility] Start: 09-17-2022 End: 09-21-2022 Evaluation and management [facility] Start: 09-09-2022 Non-patient / Non-visit Marycarmen gifford [facility] Start: 09-01-2022 Non-patient / Non-visit Marycarmen gifford [facility] Start: 08-31-2022 End: 08-31-2022 Non-patient / Non-visit Marycarmen SWAIN [facility] [place] [facility] Start: 08-31-2022 Non-patient / Non-visit Marycarmen gifford [facility] Start: 08-31-2022 End: 09-01-2022 Evaluation and management of inpatient [facility] Start: 08-31-2022 End: 09-01-2022 observation encounter Marycarmen Jennifer [facility] Work Phone: Start: 08-19-2022 End: 08-19-[address] [facility] Work Phone: Start: 08-19-2022 End: 08-19-2022 Patient encounter procedure Marycarmen SWAIN [facility] Start: 08-11-2022 Non-patient / Non-visit Marycarmen gifford [facility] Start: 06-11-2022 End: 06-11-[address] Marycarmen Rodriguez Work Phone: [facility] [place] Work Phone: Start: 06-11-2022 End: 06-11-[address] Marycarmen Rodriguez [facility] Start: 04-21-2022 Non-patient / Non-visit Dr. Ap Rodriguez Work Phone: [facility] Start: 04-21-2022 End: 04-21-[address] Marycarmen Rodriguez Work Phone: [facility] [place] Work Phone: Start: 04-21-2022 End: 04-21-[address] Marycarmen Rodriguez Work Phone: [facility] [place]-Cardiovascula r Services Start: 04-16-2022 End: 04-16-[address] Marycarmen Rodriguez [facility] Start: 04-14-2022 End: 04-14-[address] Marycarmen Rodriguez Work Phone: [facility] [place] Work Phone: Start: 04-14-2022 End: 04-14-[address] Marycarmen Rodriguez Work Phone: [facility] Start: 04-14-2022 End: 04-14-[address] Marycarmen Rodriguez Work Phone: [facility] Start: 03-27-2022 End: 03-27-[address] Marycarmen Rodriguez Work Phone: [facility] [place] Start: 01-20-2022 End: 01-20-[address] Marycarmen Rodriguez Work Phone: [facility] [place] Start: 01-07-2022 End: 01-07-[address] Marycarmen Rodriguez [facility] Start: 11-27-2021 Non-patient / Non-visit Dr. Ap Rodriguez Work Phone: [facility] Start: 11-26-2021 End: 11-26-[address] Marycarmen Rodriguez Work Phone: [facility] [place]-Pulmonary Services/Neurology Start: 11-21-2021 End: 11-21-[address] Marycarmen Rodriguez Work Phone: [facility] Start: 11-16-2021 End: 11-16-2021 Emergency department patient visit Dr. Marycarmen Rodriguez Work Phone: [facility] [place]-Emergency Department Start: 10-28-2021 End: 10-28-[address] Marycarmen Rodriguez Work Phone: [facility] [place]-Laboratory, [place] Start: 09-16-2021 End: 09-16-[address] Marycarmen Rodriguez Work Phone[facility] Start: 09-16-2021 End: 09-16-[address] Marycarmen Rodriguez Work Phone: [facility] Start: 08-15-2021 Non-patient / Non-visit Dr. Ap Rodriguez Work Phone: [facility] Start: 08-15-2021 Non-patient / Non-visit Dr. Ap Rodriguez Work Phone: [facility] Start: 08-15-2021 End: 08-15-[address] Marycarmen Rodriguez Work Phone: [facility] [place]-Cardiovascula r Services Start: 08-01-2021 End: 08-01-[address] Marycarmen Rodriguez Work Phone: [facility] Start: 06-10-2021 End: 06-10-2021 Emergency department patient visit Dr. Marycarmen Rodriguez Work Phone: [facility] [place]-Emergency Department Start: 05-19-2021 End: 05-19-2021 Emergency department patient visit Dr. Marycarmen Rodriguez Work Phone: [facility]-Emergency Department Start: 05-16-2021 End: 05-16-[address] 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) (Primary Dx) Start: 12-31-2020 Admission to [facility] Eladio Ingram MD Work Phone: [facility] Comment on above: Chest pain, unspecif ied type (Primary Dx) Start: 12-26-2020 End: 12-30-2020 Orders Only Justa Euceda RN [facility] Office Start: 12-26-2020 End: 12-26-2020 Office outpatient visit 25 minutes Marycarmen Rodriguez DO Work Phone: [facility] Office Comment on above: Essential hypertensi on (Primary Dx); Atherosclerosis of [place] coronary artery with angina pectoris, unspecified whether [place] or transplanted heart (HCC); Coronary artery disease involving [place] coronary artery of [place] heart with angina pectoris (HCC); Mixed hyperlipidemia Start: 12-18-2020 ambulatory MIN HOWARD [facility] y:[facility] Start: 10-15-2020 End: 10-16-2020 ambulatory MARYCARMEN CHRISTY [facility] Start: 10-15-2020 End: 10-15-2020 Subsequent hospital visit by physician Eladio Ingram MD Work Phone: [facility] V[facility] Physicians Comment on above: Arrived Start: 10-10-2020 ambulatory FERNANDA ACUÑA [facility] Ambulatory Start: 10-09-2020 End: 10-09-2020 Orders Only Fernanda Acuña [facility] Work Phone: [facility] Office Comment on above: DEAN (dyspnea on exer tion) (Primary Dx) Start: 10-09-2020 End: 10-09-2020 Office outpatient new 45 minutes Fernanda Kellyjennifer PAPPAS Work Phone: [facility] Office Comment on above: DEAN (dyspnea on exer tion); Essential hypertension; Type 2 diabetes mellitus without complication, without long-term current use of insulin (HCC); MATTHEW (obstructive sleep apnea); Coronary artery disease involving [place] coronary artery of [place] heart without angina pectoris Start: 10-04-2020 End: 10-04-2020 Orders Only Deisi March RN [facility] Office Comment on above: Shortness of breath (Primary Dx) Start: 12-17-2016 Office/outpatient vi sit, est, level 4 Eladio Ingram Work Phone: [facility] Vascular Physicians Start: 11-28-2016 End: 11-28-2016 Patient encounter procedure [facility] [place] Procedures Date Procedure Procedure Detail Performing Clinician Start: 10-18-2024 Methadone measuremen t, urine Dr. Marycarmen Rodriguez DO Work Phone: Start: 10-18-[address] Marycarmen adler DO Work Phone: Comment on above: Test Ordered: [id number]+DI4Jruftsebpdfd Screen, Urine Negative ng/mL UI Reference Range: Offpks=794Qmmzdukqfbc test includes Amphetamine and Methamphetamine.Barbiturates Negative ng/mL UI Reference Range: Cwngeg=605Dehsigvsjofodum Negative ng/mL UI Reference Range: Knyfgy=012Xvwuwoy (Metab.), Urine Negative ng/mL UI Reference Range: Mycnme=017Gvnxbwi Note: ng/mL UI See Final Results Reference Range: Sxtpnm=693Vljzrk test includes Codeine, Morphine, Hydromorphone, Hydrocodone.Opiates Positive [A ] UI Reference Range: Dyafyh=461Qpwgal test includes Codeine, Morphine, Hydromorphone, Hydrocodone.Codeine Negative UI Reference Range: Nhgcql=944Uwswfjfd Negative UI Reference Range: Pwdkjc=093Xkqyrbdwpiwvz Negative UI Reference Range: Zjuomu=521Hsbqgloydnd Positive [A ] UI Reference Range: .Hydrocodone Conf, MS, UR 349 ng/mL UI Reference Range: Afhmkc=3261-Darsvjimihphto, Urine Negative ng/mL UI Reference Range: Cutoff=10Oxycodone/Oxymorphone, Urine Negative ng/mL UI Reference Range: Btqrri=527Ywjk includes Oxycodone and OxymorphonePCP, Urine Negative ng/mL UI Reference Range: Cutoff=25Methadone Screen, Urine Negative ng/mL UI Reference Range: Ttqvns=496Xybxpobziwok, Urine Negative ng/mL UI Reference Range: Ymejua=588Fymuybnj, Urine Negative ng/mL UI Reference Range: Cutoff=2.0Test includes Fentanyl and NorfentanylThis test was developed and its performance characteristicsdetermined by [employer]. It has not been cleared orapproved by the Food and Drug Administration.Tramadol Negative ng/mL UI Reference Range: Ibxugg=397Vdtqkhcebumss, Urine Negative ng/mL UI Reference Range: Cutoff=10Creatinine, Urine 36.9 mg/dL UI Reference Range: 20.0-300.0pH, Urine 6.1 UI Reference Range: 4.5-8.9Performed at: [facility] [id number] [place], [place] [id number] Director: Erik Wallis PhD, Phone: [phone] at: [address] [id number] Director: Bharath Hawthorne PhD, Phone: [phone] Start: 09-21-2022 Viral antigen assay Matilda SWAIN [...] Start: 10-15-2020 TTE w or wo fol wcnilesh,Candida Ingram MD Work Phone: Start: 10-09-2020 Ecg routine ecg w/le ast 12 lds w/i&r Fernanda Silvia Acuña [employer] Work Phone: Start: 08-18-2018 History of percutane ous transluminal coronary angioplasty History of percutaneous transluminal coronary angioplasty Dr. 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 Alexandr Mcclain Start: 08-13-2017 History of placement of stent for coronary artery disease History of coronary artery stent placement Dr. 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 Procedure aborted. 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3024EVM-TJTV-Ui and Stent-Mid RCA x 2 Multi Link Mini Vision Rx Stent 4.0 x 28 mm 01/21/2006 Plan of Treatment Date Care Activity Detail Author Start: 10-25-2024 Evaluation of diagnostic study results [facility] Start: 07-25-2024 Walking distance 6 minutes [facility] Start: 07-17-2024 Measurement of respiratory function [facility] Start: 12-21-2022 Patient discharge [facility] Start: 10-05-2022 Measurement of respiratory function [facility] Start: 09-21-2022 Patient discharge [facility] Start: 09-20-2022 Telepractice consultation [facility] Start: 09-18-2022 Following clinical pathway protocol [facility] Start: 09-17-2022 Aspiration precautions [facility] Start: 09-17-2022 Assessment of risk of venous thromboembolism [facility] Start: 09-17-2022 Cardiac monitoring [facility] Start: 09-17-2022 Care regimes management [facility] Start: 09-17-2022 Catheterization of vein [facility] Start: 09-17-2022 Continuous positive airway pressure ventilation treatment [facility] Start: 09-17-2022 Continuous pulse oximetry [facility] Start: 09-17-2022 Elevation of head of bed [facility] Start: 09-17-2022 Exercises [facility] Start: 09-17-2022 Fall prevention [facility] Start: 09-17-2022 Implementation of planned interventions [facility] Start: 09-17-2022 Inhalation therapy procedure [facility] Start: 09-17-2022 Insertion of catheter into peripheral vein [facility] Start: 09-17-2022 Introduction of urinary catheter [facility] Start: 09-17-2022 Measuring intake and output [facility] Start: 09-17-2022 Notification of physician [facility] Start: 09-17-2022 Oxygen therapy [facility] Start: 09-17-2022 End: 09-18-2022 Patient referral to dietitian [facility] Start: 09-17-2022 Providing care according to standard [facility] Start: 09-17-2022 Provision of activity privileges [facility] Start: 09-17-2022 Referral to occupational therapist [facility] Start: 09-17-2022 Referral to service [facility] Start: 09-17-2022 Speech therapy assessment [facility] Start: 09-17-2022 Tobacco use cessation education [facility] Start: 09-17-2022 [facility] Start: 09-17-2022 Admission procedure [facility] Start: 09-01-2022 Patient discharge [facility] Start: 08-31-2022 Patient referral [facility] Work Phone: Start: 08-31-2022 Following clinical pathway protocol [facility] Start: 08-31-2022 Pulse taking [facility] Start: 08-31-2022 Cardiac monitoring [facility] Start: 08-31-2022 Cardiac rehabilitation - phase 1 [facility] Start: 08-31-2022 Cardiac rehabilitation - phase 2 [facility] Start: 08-31-2022 Notification of physician [facility] Start: 08-31-2022 Oxygen therapy [facility] Start: 08-31-2022 Patient discharge [facility] Start: 08-31-2022 Taking patient vital signs [facility] Start: 08-31-2022 Vascular disease risk assessment [facility] Start: 08-31-2022 Vital signs measurements [facility] Start: 08-31-2022 End: 08-31-2022 [facility] Start: 08-31-2022 Admission procedure [facility] Start: 11-16-2021 [facility] Work Phone: Start: 01-10-2021 End: 01-10-2021 Admission to same day surgery center 01/10/2021 Surgery Cardiology Eladio Ingram MD [address] [facility] [address] [place] [address] Left Heart Cath Possible PTCA/Stent [facility] Chemical Analyst Comment on above: Left Heart Cath Possible PTCA/Stent Start: 01-10-2021 Subsequent hospital visit by physician 01/10/2021 Hospital Encounter Eladio Ingram MD [address] [facility] [address] [place] [address] [facility] Procedural Care Unit Start: 01-01-2021 Influenza vaccination [facility] Start: 12-26-2020 End: 12-26-2020 Patient encounter procedure 12/26/2020 Office Visit Cardiology Marycarmen Rodriguez, [address] [facility] [place] [address] [phone] Eladio Ingram MD [address] [facility] [address] [place] [address] [phone] [facility] Office Start: 10-15-2020 End: 10-15-2020 Patient encounter procedure 10/15/2020 Appointment Cardiology Eladio Ingram MD [address] [facility] [address] [place] [address] [phone] [facility] V[facility] Phys[facility] Start: 10-09-2020 End: 10-09-2020 Patient encounter procedure 10/09/2020 Office Visit Cardiology Fernanda Acuña, APPLICATOR SPRAYER [address] [place] [address] [phone] [facility] Office Start: 11-05-2017 Prostate specific antigen measurement PSA Level [facility] Start: 06-01-2017 HEMOGLOBIN A1C HEMOGLOBIN A1C [facility] Work Phone: Start: 06-01-2017 Hemoglobin A1c measurement A1C [facility] Start: 06-01-2017 Hemoglobin A1c/Hemoglobin.total mass fraction (Bld) HEMOGLOBIN A1C [facility] Work Phone: Start: 01-01-2017 SEQUENTIAL INFLUENZA VACCINE (#1) SEQUENTIAL INFLUENZA VACCINE (#1) [facility] Work Phone: Start: 12-17-2016 Ambulatory 12/17/2016 Office Visit Cardiology Eladio Ingram MD [address] [facility] [address] [place] [address] [phone] [facility] Start: 2010 ABDOMINAL AORTIC ULTRASOUND ABDOMINAL AORTIC ULTRASOUND [facility] Work Phone: Start: 2010 Fall risk assessment Falls Risk Assessment [facility] Start: 2010 PNEUMOCOCCAL VACCINE AGE 65+ (1 of 2 - PCV13) PNEUMOCOCCAL VACCINE AGE 65+ (1 of 2 - PCV13) [facility] Work Phone: Start: 2005 Zoster vacc, sc ZOSTER VACCINE [facility] Work Phone: Start: 08-01-1995 Administration of herpes zoster vaccine Zoster Vaccines (1 of 2) [facility] Start: 08-01-1995 Screening for malignant neoplasm of colon [facility] Start: 08-01-1963 Hepatitis C screening Hepatitis C Screening [facility] Start: 1957 COVID-19 Vaccine (1) COVID-19 Vaccine (1) [facility] Start: 08-01-1955 3 comp foot exam completed FOOT EXAM [facility] Work Phone: Start: 08-01-1955 Albumin Test strip detection limit <= 20 mg/L mass conc (U) URINE MICROALBUMIN [facility] Work Phone: Start: 08-01-1955 Diabetic foot examination Foot Exam [facility] Start: 08-01-1955 Microalbumin measurement, urine, quantitative Urine Microalbumin [facility] Start: 08-01-1955 Ophthalmic examination and evaluation OPHTHALMOLOGY EXAM [facility] Start: 08-01-1955 FOOT EXAM FOOT EXAM [facility] Work Phone: Start: 08-01-1955 OPHTHALMOLOGY EXAM OPHTHALMOLOGY EXAM [facility] Work Phone: Start: 08-01-1955 URINE MICROALBUMIN URINE MICROALBUMIN [facility] Work Phone: Start: 08-01-1951 Pneumococcal Vaccine: Age 65+ (1 of 2 - PPSV23) Pneumococcal Vaccine: Age 65+ (1 of 2 - PPSV23) [facility] Start: 1948 History and physical examination, annual for health maintenance Wellness Visit [facility] Start: 1945 Colonoscopy COLONOSCOPY [facility] Work Phone: Start: 1945 Tetanus vaccination Tetanus: Every 10yrs [facility] Start: 1945 Colonoscopy COLONOSCOPY [facility] Work Phone: Start: 1945 End: 1945 HEPATITIS C SCREENING HEPATITIS C SCREENING [facility] Work Phone: Start: 1945 End: 1945 TETANUS EVERY 10 YR TETANUS EVERY 10 YR [facility] Work Phone: End: 12-26-2021 Basic metabolic 2000 panel - Serum or Plasma Basic metabolic panel Lab Routine Atherosclerosis of [place] coronary artery with angina pectoris, unspecified whether [place] or transplanted heart (HCC) Essential hypertension 1 Occurrences starting 12/26/2020 until 12/26/2021 [facility] Comment on above: 1 Occurrences starting 12/26/2020 until 12/26/2021 Basic metabolic 2000 panel - Serum or Plasma Basic metabolic panel Lab Routine Atherosclerosis of [place] coronary artery with angina pectoris, unspecified whether [place] or transplanted heart (HCC) Essential hypertension 12/26/2020 11:28 AM EDT [facility] Basic metabolic 2008 panel with ionized calcium - Serum or Plasma [facility] End: 12-17-2017 Basic metabolic panel [AGGREGATE] Basic metabolic panel Routine MATTHEW (obstructive sleep apnea) Coronary artery disease involving [place] coronary artery of [place] heart without angina pectoris 1 Occurrences starting 12/17/2016 until 12/17/2017 [facility] Work Phone: Blood chemistry [facility] Catheterization of [facility] Catheterization of [facility] CBC W Auto Different ial panel - Blood [facility] End: 12-26-2021 Complete blood count with white cell differential, manual CBC and differential Lab Routine Atherosclerosis of [place] coronary artery with angina pectoris, unspecified whether [place] or transplanted heart (HCC) Essential hypertension 1 Occurrences starting 12/26/2020 until 12/26/2021 [facility] Work Phone: Comment on above: 1 Occurrences starting 12/26/2020 until 12/26/2021 Complete blood count with white cell differential, manual CBC and differential Lab Routine Atherosclerosis of [place] coronary artery with angina pectoris, unspecified whether [place] or transplanted heart (HCC) Essential hypertension 12/26/2020 11:28 AM EDT [facility] End: 01-10-2022 CT Angiogram Aorta Chest Abdomen Pelvis CT Angiogram Aorta Chest Abdomen Pelvis Imaging Routine Coronary artery disease involving [place] coronary artery of [place] heart with angina pectoris (HCC) 1 Occurrences starting 01/10/2021 until 01/10/2022 [facility] Work Phone: Comment on above: 1 Occurrences starting 01/10/2021 until 01/10/2022 End: 12-04-2021 Echocardiography Echocardiogram complete Echocardiography Routine Shortness of breath 1 Occurrences starting 10/04/2020 until 12/04/2021 [facility] Comment on above: 1 Occurrences starting 10/04/2020 until 12/04/2021 LEFT HEART CATH POSS IBLE PTCA/STENT LEFT HEART CATH POSSIBLE PTCA/STENT [facility] End: 12-17-2017 Magnesium Magnesium Routine MATTHEW (obstructive sleep apnea) Coronary artery disease involving [place] coronary artery of [place] heart without angina pectoris 1 Occurrences starting 12/17/2016 until 12/17/2017 [facility] Work Phone: Measurement of respiratory function [facility] Work Phone: Natriuretic peptide. B prohormone N-Terminal [Mass/volume] in Serum or Plasma [facility] NM Heart Views W str ess and W radionuclide IV [facility] Patient Education [facility] Work Phone: Patient referral [facility] Work Phone: [facility] Immunizations Immunization Date Immunization Notes Care Provider Fa [facility] 02-20-[address] Marycarmen Rodriguez Work Phone: [facility] 02-14-[address] Marycarmen Rodriguez Work Phone: [facility] 01-31-[address] Marycarmen Rodriguez Work Phone: [facility] 11-29-2016 HEMOGLOBIN A1C [facility] Work Phone: Payers Date Payer Category Payer Self-pay [id number] 2019 Unknown [id number] 1. [id number] 2019 Unknown [id number] 2012 Unknown [id number] 2.1 6.840.1.209185.3.249.13 2010 Medicare [id number] 2.16 .840.1.192229.3.249.13 2010 Medicare [id number] 1.2 [id number] 2010 Medicare [id number] 2010 Medicare [id number] 1945 Unknown [id number] 2.16. 840.1.670961.3.579.2.594 1945 Unknown [id number] 2. 840.1.862411.3.579.2.902 1945 Unknown [id number] 2.16 840.1.178536.3.579.2.90 1945 Unknown [id number] 2.16 840.1.177158.3.579.2.903 1945 Unknown [id number] 2.16 840.1.110329.3.579.2.903 1945 Unknown [id number] 2.16 840.1.083694.3.579.2.903 1945 Unknown [id number] 2.16. 840.1.122059.3.579.2.903 1945 Unknown [id number] 2.16. 840.1.666963.3.579.2.903 1945 Unknown [id number] 2.16. 840.1.373980.3.579.2.903 1945 Unknown [id number] 2.16. 840.1.201504.3.579.2.903 Unknown [id number] 2.16.8 40.1.044219.3.579.2.462 Unknown [id number] 2.16.8 40.1.857411.3.579.2.462 Unknown [id number] 2.16.8 40.1.947647.3.579.2.462 Unknown [id number] 2.16.8 40.1.132327.3.579.2.462 Unknown [id number] 2.16.8 40.1.731545.3.579.2.462 Unknown [id number] 2.16.8 40.1.223012.3.579.2.462 Unknown [id number] 2.16.8 40.1.334771.3.579.2.462 Unknown [id number] 2.16.8 40.1.373057.3.579.2.462 Unknown [id number] 2.16.8 40.1.169542.3.579.2.462 Unknown [id number] 2.16.8 40.1.521715.3.579.2.462 Unknown [id number] 2.16.8 40.1.059221.3.579.2.462 Unknown [id number] 2.16.8 40.1.144688.3.579.2.462 Unknown [id number] 2.16.8 40.1.960094.3.579.2.462 Unknown [id number] 2.16.8 40.1.211015.3.579.2.462 Unknown [id number] 2.16.8 40.1.808418.3.579.2.462 Unknown [id number] 2.16.8 40.1.631092.3.579.2.462 Unknown [id number] 2.16.8 40.1.603564.3.579.2.462 Unknown [id number] 2.16.8 40.1.149294.3.579.2.462 Unknown [id number] 2.16.8 40.1.226148.3.579.2.462 Unknown [id number] 2.16.8 40.1.517556.3.579.2.462 Unknown [id number] 2.16.8 40.1.631652.3.579.2.462 Unknown [id number] 2.16.8 40.1.183699.3.579.2.462 Unknown [id number] 2.16.8 40.1.806821.3.579.2.462 Unknown [id number] 2.16.8 40.1.507708.3.579.2.462 Unknown [id number] 2.16.8 40.1.403594.3.579.2.462 Social History Date Type Detail Facility Start: 12-17-2016 End: 10-12-2023 Tobacco smoking status NHIS Former smoker [facility] Start: 12-17-2016 End: 10-09-2020 Cigarettes smoked current (pack per day) - Reported [facility] Work Phone: Start: 1945 Sex Assigned At Not on file [facility] Work Phone: Start: 12-17-2016 End: 10-09-2020 Tobacco use and exposure Never used [facility] Start: 12-17-2016 End: 01-10-2021 Alcohol intake Current non-drinker of alcohol (finding) [facility] Start: 03-10-2016 Tobacco Comment [facility] -2 (event) Not sure [facility] Start: 08-01-2021 End: 12-21-2022 Tobacco smoking status NHIS Unknown if ever smoked [facility] Start: 01-12-[address] [facility] Start: 01-12-2020 Spouse/ Signif icant Other [facility] Start: 11-18-2020 Non-smoker [facility] Start: 1945 Sex Assigned At Male W [facility] Start: 07-13-2024 End: 08-08-2024 Sex Male (finding) [facility] Medical Equipment Procedure Code Equipment Code Equipment Origin al Text Equipment Identifier Dates Stent 3.50 X 23 Xience Alpine Xpedition Rx - [id number] FDA Start: 01-04-2015 Drug-eluting cor onary artery stent, [id number] ajit-coated [id number] FDA Start: 08-31-2022 Femoral vessel s uture implantation set [id number] FDA Start: 08-31-2022 Goals Date Patient Goal Desired Activity /State Functional Status Date Assessment Result Facility 09-21-2022 Functional status Chair [facility] Work Phone: 09-20-2022 Functional status Assistive Ning lauro Rolling Walker [facility] Work Phone: 09-01-2022 Functional status Activity Ability Indepe ndent [facility] Work Phone: 08-31-2022 Functional status Ambulates [facility] Work Phone: Mental Status Date Assessment Result Facility 09-21-2022 Cognitive function Voice/Name [facility] Work Phone: 09-01-2022 Cognitive function Appropriate;Cooperativ e [facility] Work Phone: 11-16-2021 Cognitive function Voice/Name [facility] Work Phone: 06-10-2021 Cognitive function Level Of Cons ciousness Awake;Alert;Appropriate [facility] Work Phone: Clinical Notes 06-25-2020 to 07-18-2024 Note Date & Type Note Facility 07-18-2024 Procedure note [facility] 07-03-2024 Evaluation note Diagnosis Onset Date Resolution [...] 20, 2024 10:13am Obstructive sleep apnea chronic ay 2024 10:13am [facility] Work Phone: 1(802) 832-370903-03-2025 Evaluation note* Diagnosis Onset Date Resolution Status Admit Date COPD (chronic obstructive pulmonary disease) chronic July 03 1:10pm Diastolic heart failure chronic arch 2024 1:10pm Obesity chronic July 03 1:10pm Obstructive sleep apnea chronic arch 2024 1:10pm COPD (chronic obstructive pulmonary disease) chronic September 20 10:13am Diastolic heart failure chronic ay 2024 10:13am Obesity chronic September 20, 2024 10:13am Obstructive sleep apnea chronic ay 2024 10:13am DEAN (dyspnea on exertion) acute October 25, 2024 7:54am Shortness of breath acute October 25, 2024 7:54am Bilateral lower extremity edema 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 October 25, 2024 7:54am 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, stage 3 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 October 25, 2024 7:54am Coronary artery disease chronic J 2024 7:54am Essential hypertension chronic Ju 2024 7:54am Hyperlipidemia chronic October 25, 2024 7:54am Obesity chronic October 25 7:54am Type 2 diabetes mellitus wit hout complications chronic October 25, 2024 7:54am Chest pain inactive October 25 7:54am [facility] Work Phone: 1(374) 642-311103-03-2025 Evaluation note* Diagnosis Onset Date Resolution Status Admit Date COPD (chronic obstructive pulmonary disease) chronic July 03 1:10pm Diastolic heart failure chronic arch 2024 1:10pm Obesity chronic July 03 1:10pm Obstructive sleep apnea chronic arch 2024 1:10pm COPD (chronic obstructive pulmonary disease) chronic September 20 10:13am Diastolic heart failure chronic M ay 2024 10:13am Obesity chronic September 20, 2024 10:13am Obstructive sleep apnea chronic ay 2024 10:13am Shortness of breath acute October 25, 2024 7:54am Bilateral lower extremity edema 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 October 25, 2024 7:54am Chest pain chronic October 25 7:54am 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, stage 3 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 October 25, 2024 7:54am Coronary artery disease chronic J une 2024 7:54am Essential hypertension chronic Ju ne 2024 7:54am Hyperlipidemia chronic October 25, 2024 7:54am Obesity chronic October 25 7:54am Type 2 diabetes mellitus wit hout complications chronic October 25, 2024 7:54am [facility] Work Phone: 1(818) 415-333303-03-2025 Evaluation note* Diagnosis Onset Date Resolution Status Admit Date COPD (chronic obstructive pulmonary disease) chronic July 03 1:10pm Diastolic heart failure chronic arch 2024 1:10pm Obesity chronic July 03 1:10pm Obstructive sleep apnea chronic [facility] 2024 1:10pm COPD (chronic obstructive pulmonary disease) chronic September 20 10:13am Diastolic heart failure chronic M ay 2024 10:13am Obesity chronic September 20, 2024 10:13am Obstructive sleep apnea chronic M ay 2024 10:13am Shortness of breath acute October 25, 2024 7:54am Bilateral lower extremity edema 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 October 25, 2024 7:54am Chest pain chronic October 25 7:54am 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, stage 3 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 October 25, 2024 7:54am Coronary artery disease chronic J une 2024 7:54am Essential hypertension chronic Ju ne 2024 7:54am Hyperlipidemia chronic October 25, 2024 7:54am Obesity chronic October 25 7:54am Type 2 diabetes mellitus wit hout complications chronic October 25, 2024 7:54am COPD (chronic obstructive pulmonary disease) chronic October 31 10:00am Diastolic heart failure chronic J shannon 2024 10:00am Obesity chronic October 31, 2024 10:00am Obstructive sleep apnea chronic J shannon 2024 10:00am [facility] Work Phone: 1(702) 111-535603-03-2025 Evaluation note* Diagnosis Onset Date Resolution Status [...] 25, 2024 7:54am Bilateral lower extremity edema 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 October 25, 2024 7:54am Chest pain chronic October 25 7:54am 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, stage 3 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 October 25, 2024 7:54am Coronary artery disease chronic J une 2024 7:54am Essential hypertension chronic Ju ne 2024 7:54am Hyperlipidemia chronic October 25, 2024 7:54am Obesity chronic October 25 7:54am Type 2 diabetes mellitus wit hout complications chronic October 25, 2024 7:54am Asthma acute October 31, 2024 10:00am Central sleep apnea acute October 31, 2024 10:00am COPD (chronic obstructive pulmonary disease) chronic October 31 10:00am Diastolic heart failure chronic J shannon 2024 10:00am Obesity chronic October 31, 2024 10:00am Obstructive sleep apnea chronic J shannon 2024 10:00am [facility] Work Phone: 1(901) 936-252012-16-2024 Evaluation note* Diagnosis Onset Date Resolution Status Admit Date DEAN (dyspnea on exertion) acute April 17, 2024 3:51pm Bilateral lower extremity edema 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 April 17, 2024 3:51pm 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, stage 3 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 April 17, 2024 3:51pm Coronary artery [...] sleep apnea chronic M arch 2024 1:10pm [facility] Work Phone: 1(358) 771-363111-18-2024 Evaluation note* Diagnosis Onset Date Resolution Status Admit Date Bilateral lower extremity edema 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 March 20, 2024 10:31am 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, stage 3 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 March 20, 2024 10:31am Coronary artery disease chronic N ovember 2023 10:31am Essential hypertension chronic No vember 2023 10:31am Hyperlipidemia chronic March 032023 10:31am Obesity chronic March 20, 2024 10:31am Type 2 diabetes mellitus without complications chronic March 032023 10:31am DEAN (dyspnea on exertion) acute April 17, 2024 3:51pm Bilateral lower extremity edema 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 Hay [facility] September 01, 2022 9:55am Note Date/Time September 01, 2022 8:37am [facility] Medical Records Department [address] [place] [address] Instructions for Home/Discharge Instructions 09/01/22 0835 MR#: [id number] Acct: [id number] Name: ERIBERTO RICO Rep #:[id number] : [...] mg PO Q6H PRN PRN (Reason: Pain -02/09) 0RF mirtazapine [Remeron] 15 mg tablet 15 [...] CC: Dr. Marycarmen Rodriguez DO ~ Signed [facility] Work Phone: 1(187) 962-559208-26-2021 Miscellaneous Notes* Assessment & Plan Note - [...] with any necessary intervention. documented in this [id number] History of Present illness Narrative* Eladio Ingram [...] patient is not nervous/anxious. documented in this [id number] Miscellaneous Notes* Assessment & Plan Note - Fernanda Acuña CNP - 10/09/2020 11:44 AM EDT Associated Problem(s): Coronary artery disease involving [place] coronary artery of [place] heart without angina pectoris Multiple previous cardiac catheterizations with intervention. Most recent cardiac caths were performed in 2018, August 03 at [place], and August 18 at [facility] in [place]. 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 The notes from the cath at [facility] indicate that they were able to [...] intolerance, and chest pressure. documented in this [id number] History of Present illness Narrative* Fernanda Acuña CNP - 10/09/2020 11:19 AM EDT [facility] [address] [facility] [address] [facility] [id number] Assessment & Plan: Hypertension Blood pressure mildly [...] without CPAP use. Coronary artery disease involving [place] coronary artery of [place] heart without angina pectoris Multiple previous cardiac catheterizations with intervention. Most recent cardiac caths were performed in 2018, August 03 at [place], and August 18 at [facility] in [place]. 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 The notes from the cath at [facility] indicate that they were able to [...] re-establish care. He has been following at [facility] and [facility] for his cardiology care over the past 4 years. 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 Eriberto has long-standing coronary artery disease and his history is primarily obtained through records from [facility]. Eriberto is uncertain of many of the dates related to multiple tests and interventions he has had in the past 3 years. Eriberto states that he has noticed an increase in exercise intolerance over the past 3-4 weeks. 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 at [email or web address] this weeks and became quite short of [...] Date Coronary artery disease Diabetes mellitus ([facility]) Diastolic CHF ([facility]) Hyperlipidemia Hypertension Lower leg edema Myocardial infarction ([facility]) 2009 Peripheral vascular disease ([facility]) Sleep apnea Stroke ([facility]) Testicle swelling Past Surgical History: Procedure Laterality Date CARDIAC CATHETERIZATION N/A 01/04/2015 Left Heart Cath,Stent, EF 60%; Eladio Ingram MD; [facility] 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[employer]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 CARDIAC CATHETERIZATION N/A 01/28/2015 Left Heart Cath, EF 60%; Ealdio Ingram MD; [facility] [employer]ING TE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 CARDIAC CATHETERIZATION N/A 06/18/2015 Left Heart Cath, Right Upper Extremity Angiogram, EF 60%; Eladio Ingram MD; [facility] [employer] TE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 CARDIAC CATHETERIZATION N/A 03/17/2016 Procedure: Left and Right Heart Cath Poss Stent; Surgeon: Eladio Ingram MD; Location: [facility] [employer]ING TE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; Service: CARDIAC CATHETERIZATION 03/22/2014 EF 60% CARDIAC CATHETERIZATION 06/29/2013 EF 60% CARDIAC CATHETERIZATION 09/08/2012 EF 55% CARDIAC CATHETERIZATION 03/22/2014 EF 60% CARDIAC CATHETERIZATION Right 10/15/2016 Procedure: Left Heart Cath Possible PTCA/Stent; Surgeon: Merritt Arthur MD; Location: [facility] CATHLAB; Service: CHOLECYSTECTOMY CORONARY [...] ectopy, no acute changes. 50 minutes spent [id number]-an-[id number] with patient Follow Up Ordered: Return for [...] patient is not nervous/anxious. documented in this [id number] NotePatient Outreach ([facility]) ERIBERTO RICO ([id number]) 1945 M Date Time Provider Department 06/25/20 ARIANNA TELLES During your visit today, we recorded the following information about you: Allergies As of Date: 06/25/2020 (No Known Allergies) Date Reviewed: 08/19/2018 Reviewed by: Alcira Newby) ALEX Mcgraw - Fully Assessed Order(s):SARS-COVID VACCINE 1ST DOSE APPT [[id number]] Order #: [id number] FUTURE Prescriptions as of 06/25/2020 Sig: CLOPIDOGREL [...] (HCC) [N17.9] 08/15/2018 Coronary artery disease involving [place] smith*08/15/2018 Stented coronary artery [Z95.5] 08/15/2018 Letter Text Encounter Status:Closed by LANDON PRODUSER on 06/28/20[facility] Evaluation note* Diagnosis Shortness of breath- [facility] DEAN (dyspnea on exertion)- Primary Other dyspnea and respiratory abnormality [facility] Diagnosis DEAN (dyspnea on exertion) Other dyspnea and respiratory abnormality Essential hypertension Unspecified essential hypertension Type 2 diabetes mellitus without complication, without long-term current use of insulin (HCC) MATTHEW (obstructive sleep apnea) Obstructive sleep apnea (adult) (pediatric) Coronary artery disease involving [place] coronary artery of [place] heart without angina pectoris [facility] Shortness [facility] Diagnosis Essential hypertension- Primary Unspecified essential hypertension Atherosclerosis of [place] coronary artery with angina pectoris, unspecified whether [place] or transplanted heart (HCC) Mixed hyperlipidemia [facility] Diagnosis Chest pain, unspecified type- Primary [facility] Diagnosis Coronary artery disease involving [place] coronary artery of [place] heart with angina pectoris (HCC)- Primary [facility] Diagnosis Onset Date Resolution Status Dizziness acute Atherosclerotic heart diseas e [place] coronary artery w/angina pectoris chronic CHF (congestive heart failure) chronic Essential hypertension chron ic History of coronary artery stent placement August 13, 2017 chronic Hyperlipidemia chronic [facility] Work Phone: Evaluation note* Diagnosis Onset Date Resolution Status Dizziness acute Atherosclerotic heart diseas e [place] coronary artery w/angina pectoris chronic CHF (congestive heart failure) chronic Essential hypertension chron ic History of coronary artery stent placement August 13, 2017 chronic Hyperlipidemia chronic Dizziness acute DEAN (dyspnea on exertion) ac [place] Palpitations acute CAD (coronary artery disease) chronic CHF (congestive heart failure) chronic Essential hypertension chron ic Hyperlipidemia [facility] [place] Work Phone: Evaluation note* Diagnosis Onset Date Resolution Status Dizziness acute Atherosclerotic heart diseas e [place] coronary artery w/angina pectoris chronic CHF (congestive heart failure) chronic Essential hypertension chron ic History of coronary artery stent placement August 13, 2017 chronic Hyperlipidemia chronic Dizziness acute DEAN (dyspnea on exertion) [place] Palpitations acute CAD (coronary artery disease) chronic CHF (congestive heart failure) chronic Essential hypertension chron ic Hyperlipidemia chronic DEAN (dyspnea on exertion) [place] CAD (coronary artery disease) chronic CHF (congestive heart failure) chronic Essential hypertension chron ic Hyperlipidemia [facility] [place] Work Phone: Evaluation note* Diagnosis Onset Date Resolution Status Dizziness acute DEAN (dyspnea on exertion) [place] Palpitations acute CAD (coronary artery disease) chronic CHF (congestive heart failure) chronic Essential hypertension chron ic Hyperlipidemia chronic DEAN (dyspnea on exertion) [place] CAD (coronary artery disease) chronic CHF (congestive heart failure) chronic Essential hypertension chron ic Hyperlipidemia [facility] [place] Work Phone: Evaluation note* Diagnosis Onset Date Resolution Status Abnormal PFT acute 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.9) 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 Obstructive sleep apnea 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 COVID-19 acute DEAN (dyspnea on exertion) [place] Atherosclerotic heart diseas e [place] coronary artery w/angina pectoris chronic CHF (congestive heart failure) chronic Essential hypertension chron ic History of coronary artery stent placement August 13, 2017 chronic Hyperlipidemia chronic Abnormal PFT acute COVID-19 acute 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.9) 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 Obstructive sleep apnea 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 [facility] Work Phone: Evaluation note* Diagnosis Onset Date Resolution Status COVID-19 acute DEAN (dyspnea on exertion) [place] Atherosclerotic heart diseas e [place] coronary artery w/angina pectoris chronic CHF (congestive heart failure) chronic Essential hypertension chron ic History of coronary artery stent placement August 13, 2017 chronic Hyperlipidemia chronic Abnormal PFT acute COVID-19 acute 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.9) 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 Obstructive sleep apnea 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 [facility] Work Phone: Evaluation note* Diagnosis Onset Date Resolution Status Angina pectoris chronic 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 chron ic Coronary artery disease 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 Diabetes mellitus chronic Dyslipidemia chronic Essential hypertension chron ic Obesity chronic [facility] Work Phone: Evaluation note* Diagnosis Onset Date Resolution Status Angina pectoris chronic 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 chron ic Coronary artery disease 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 Diabetes mellitus chronic Dyslipidemia chronic Essential hypertension chron ic Obesity chronic Left-sided weakness acute Chest pain resolved Fatigue acute Syncope acute Coronary artery disease 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 Dyslipidemia chronic Essential hypertension chron ic [facility] Work Phone: Evaluation note* Diagnosis Onset Date Resolution Status Left-sided weakness acute Chest pain resolved Fatigue acute Syncope acute Coronary artery disease 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 Dyslipidemia chronic Essential hypertension chron ic Angina pectoris chronic Bilateral lower extremity edema chronic 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, stage 3 chronic Coronary artery disease 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 Essential hypertension chron ic Hyperlipidemia chronic Type 2 diabetes mellitus without complications [facility] [place] Work Phone: Evaluation noteNo assessment information available [facility] Work Phone: Progress note Author Dr. Hay [facility] September 01, 2022 9:53am Note Date/Time September 01, 2022 9:51am [facility] Medical Records Department [address] [place] [address] Progress Note 09/01/22 0950 MR#: [id number] Acct: [id number] Name: ERIBERTO RICO Rep #:[id number] : 1945 77 From: Jose Hay MD PCP: Dr. Marycarmen Rodrgiuez, DO Status:ADM EDMUND Location: [place] [address] Progress Note Reports complete resolution of angina. Denies any complaints today. Right groin stable. No hematoma or bruit. Right radial pulse 2+. Mildly decreased platelet count noted. Repeat CBC in 2 days. Also repeat complete metabolic panel in 2 days. Discharge home. Follow-up as outpatient. 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 Advance Directives and Living Will [...] Documents on File Type Date Recorded 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 Advance Directives and Livin g Will 10/04/2020 12:00 AM Documents on File Type Date Recorded 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 Advance Directives and Living Will [...] Documents on File Type Date Recorded 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 Advance Directives and Livin g Will 10/15/2020 12:46 PM Documents on File Type Date Recorded 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 Advance Directives and Livin g Will 10/15/2020 12:46 PM Documents on File Type Date Recorded 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 Advance Directives and Livin g [...] Will Yes June 10 4:44pm Power of Delivery And Installation Subcontractor Yes June 10, 2021 4:44pm Advance Directive Response Recorded Date/ Time Name of Medical Power of Delivery And Installation Subcontractor Jennie- November 16, 2021 1:06pm Advance Directives No August 13 018 7:02am Living Will Yes November 16, 2021 1:06pm Power of Delivery And Installation Subcontractor Yes November 16 1:06pm Advance Directive Response Recorded Date/ Time Advance Directives No August 13 018 6:02am Living Will Yes November 16, 2021 12:06pm Power of Delivery And Installation Subcontractor Yes November 16 12:06pm Advance Directive Response Recorded Date/ Time Advance Directives No August 13 018 7:02am Living Will Yes November 16, 2021 1:06pm Power of Delivery And Installation Subcontractor Yes November 16 1:06pm Advance Directive Response Recorded Date/ Time Advance Directives on File Yes August 312022 7:47am Name of Medical Power of Delivery And Installation Subcontractor Mike Rico- son August 31, 2022 7:47am Advance Directives Yes August 31, 2022 7:47am Living Will Yes August 31, 2022 7: 47am Power of Delivery And Installation Subcontractor Yes August 31, 2022 7:47am Advance Directive Response Recorded Date/ Time Advance Directives on File Yes August 312022 7:47am Name of Medical Power of Delivery And Installation Subcontractor Mike Rico- son August 31, 2022 7:47am Advance Directives Yes August 31, 2022 7:47am Living Will No September 18, 2022 1 2:11am Power of Delivery And Installation Subcontractor No September 18, 2022 12:11am Advance Directive Response Recorded Date/ Time Advance Directives on File Yes August 312022 7:47am Name of Medical Power of Delivery And Installation Subcontractor Mike Rico- son August 31, 2022 7:47am Advance Directives on File No 2022 7:51am Name of Medical Power of Delivery And Installation Subcontractor MIKE RICO December 21, 2022 7:51am Advance Directives Yes December 21, 2022 7:51am Living Will Yes December 21 7:51am Power of Delivery And Installation Subcontractor Yes December 21 023 7:51am Advance Directive Response Recorded Date/ Time Advance Directives on File No Decus t 2022 7:51am Name of Medical Power of Delivery And Installation Subcontractor MIKE RICO December 21, 2022 7:51am Advance Directives Yes December 21, 2022 7:51am Living Will Yes December 21 7:51am Power of Delivery And Installation Subcontractor Yes December 21 023 7:51am Advance Directive Response Recorded Date/ Time Advance Directives Yes December 21, 2022 6:51am Living Will Yes December 21 6:51am Power of Delivery And Installation Subcontractor Yes December 21 023 6:51am Advance Directive Response Recorded Date/ Time Living Will No October 12, 2023 6:54pm Power of Delivery And Installation Subcontractor No October 11 6:54pm Advance Directives Yes December 21, 2022 7:51am Advance Directive Response Recorded Date/ Time Advance Directives Yes December 21, 2022 7:51am Reason for Referral Status Reason Specialty Diagnoses / Procedures Referred By Contact Referred To Contact New Request Cardiology Diagnoses Shortness of breath Procedures Echocardiogram complete Eladio Ingram MD [address] [facility] [address] [place] [address] Status Reason Specialty Diagnoses / Procedures Referred By Contact Referred To Contact Closed Cardiology Diagnoses DEAN (dyspnea on exertion) Procedures ECG 12 lead Fernanda Acuña, APPLICATOR SPRAYER [address] [place] [phone] Specialty Diagnoses / Procedures Referred By Contac t Referred To Contact Radiology Diagnoses Coronary artery disease involving [place] coronary artery of [place] heart with angina pectoris (HCC) Procedures CT Angiogram Aorta Chest Abdomen Pelvis Eladio Ingram MD [address] [place] [address] Referral ID Status Reason Start Date Expiration Date V isits Requested Visits Authorized [id number] New Request 01/10/2021 01/10/2022 1 1 Chief Complaint and Reason for Visit Chief Complaint R. LOWER LID LESION RLQ ABD PAIN bleeding from ear, chest pain OVERDUE FOR OV CHEST PAIN CHEST PAIN Reason for Visit Dizziness Atherosclerotic heart disease [place] coronary artery w/angina pectoris CHF (congestive heart failure) Essential hypertension History of coronary artery stent placement Hyperlipidemia Chief Complaint bleeding from ear, c hest pain OVERDUE FOR OV CHEST PAIN CHEST PAIN 6-8 WK F/U DYSPNEA Reason for Visit Dizziness Atherosclerotic heart disease [place] coronary artery w/angina pectoris CHF (congestive heart failure) Essential hypertension History of coronary artery stent placement Hyperlipidemia Dizziness DEAN (dyspnea on exertion) Palpitations CAD (coronary artery disease) CHF (congestive heart failure) Essential hypertension Hyperlipidemia Chief Complaint OVERDUE FOR OV CHEST PAIN CHEST PAIN 6-8 WK F/U DYSPNEA Reason for Visit Dizziness Atherosclerotic heart disease [place] coronary artery w/angina pectoris CHF (congestive heart failure) Essential hypertension History of coronary artery stent placement Hyperlipidemia Dizziness DEAN (dyspnea on exertion) Palpitations CAD (coronary artery disease) CHF (congestive heart failure) Essential hypertension Hyperlipidemia Chief Complaint OVERDUE FOR OV CHEST PAIN CHEST PAIN 6-8 WK F/U DYSPNEA CHEST PAIN 2 M FU E ORDERS Reason for Visit Dizziness Atherosclerotic heart disease [place] coronary artery w/angina pectoris CHF (congestive heart [...] DEAN (dyspnea on exertion) Atherosclerotic heart disease [place] coronary artery w/angina pectoris CHF (congestive heart failure) Essential hypertension History of coronary artery stent placement Hyperlipidemia Abnormal PFT COVID-19 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.9) Obstructive sleep apnea Chief Complaint SORE THROAT, COUGH, FEVER, BODY ACHE 5 MO F/U 3 M FU DYSPNEA/SOB Reason for Visit COVID-19 DEAN (dyspnea on exertion) Atherosclerotic heart disease [place] coronary artery w/angina pectoris CHF (congestive heart [...] CP CVA, CP CVA, CP request by HOOKER OPERATOR at [place] for angina L.L. E-ORDER SYNCOPE Reason for Visit Angina pectoris 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 Coronary artery disease Diabetes mellitus Dyslipidemia Essential hypertension Obesity Left-sided weakness Chest pain Fatigue Syncope Coronary artery disease Dyslipidemia Essential hypertension Chief Complaint CAD Amb Documentation EKG Coronary artery disease Amb Documentation CVA, CP CVA, CP CP ADMIT CVA, CP CVA, CP CVA, CP CVA, CP request by HOOKER OPERATOR at [place] for angina L.L. E-ORDER SYNCOPE 2 M [...] CP CVA, CP CVA, CP request by HOOKER OPERATOR at [place] for angina L.L. E-ORDER SYNCOPE 2 M [...] without complic ations October 25, 2024 7:54am Chief Complaint Admit Date F/U per [facility] [...] of breath October 25, 2024 7:54 am MATTHEW October 26, 2024 11:0 0am 4wfu October 31, 2024 10:00 am Reason for Visit Admit Date COPD [...] without complic ations October 25, 2024 7:54am COPD (chronic obstructive pulmonary dise ase) October 31, 2024 10:00am Diastolic heart failure October 31, 2024 1 0:00am Obesity October 31, 2024 10:00 am Obstructive sleep apnea October 31, 2024 1 0:00am Reason for Visit Admit Date COPD (chronic [...] without complic ations October 25, 2024 7:54am Asthma October 31, 2024 10:00 am Central sleep apnea October 31, 2024 10:00 am COPD (chronic obstructive pulmonary dise ase) October 31, 2024 10:00am Diastolic heart failure October 31, 2024 1 0:00am Obesity October 31, 2024 10:00 am Obstructive sleep apnea October 31, 2024 1 0:00am Additional Source Comments (unrecognized sect ion and content) No Status Records FoundNo Status Records FoundNo Status Records FoundNo Status Records FoundNo Status Records FoundNo Status Records FoundNo Status Records Found INFORMATION SOURCE (unrecogn ized section and content) DATE CREATED AUTHOR 09/24/2018 [facility] DATE CREATED AUTHOR AUTHOR'S ORGANIZ ATION 12/20/2020 [facility] DATE CREATED AUTHOR AUTHOR'S ORGANIZ ATION 01/11/2021 [facility] DATE CREATED AUTHOR AUTHOR'S ORGANIZ ATION 02/28/2021 [facility] DATE CREATED AUTHOR AUTHOR'S ORGANIZ ATION 04/20/2021 [facility] DATE CREATED AUTHOR AUTHOR'S ORGANIZ ATION 06/22/2021 [facility] DATE CREATED AUTHOR AUTHOR[facility]S [facility]IZ ATION [facility] Reason for Visit (unrecogniz ed section and content) Reason Comments Chest Pain SOB Status Reason Specialty Diagnoses / Procedures Referred By Contact Referred To Contact Closed Cardiology Diagnoses DEAN (dyspnea on exertion) Procedures ECG 12 lead Fernanda Acuña, APPLICATOR SPRAYER [address] [place] [address] Status Reason Specialty Diagnoses / Procedures Referre d By Contact Referred To Contact Closed Cardiology Diagnoses Shortness of breath Procedures Echocardiogram complete w contrast Echocardiogram complete Eladio Ingram MD [address] [facility] [address] [place] [address] Reason Comments Initial Visit (Intake) Specialty Diagnoses / Procedures Referred By Contac t Referred To Contact Cardiology Diagnoses Atherosclerosis of [place] coronary artery with angina pectoris, unspecified whether [place] or transplanted heart (HCC) Marycarmen Rodriguez, [address] [address] Referral ID Status Reason Start Date Expiration Date V isits Requested Visits Authorized [id number] Closed Specialty Services Required/Krupa ent's Best Interest 10/04/2020 10/04/2021 1 1 Care Teams (unrecognized sec tion and content) Corporate Treasury Analyst Relationship Specialty Start Date End Date Marycarmen Rodriguez DO [address] [place], [place] [phone] PCP - General Family Medicine 12/17/16 Corporate Treasury Analyst Relationship Specialty Start Date End Date Marycarmen Rodriguez DO [address] [place], [place] [id number] PCP - General Family Medicine 12/17/16 Corporate Treasury Analyst Relationship Specialty Start Date End Date Marycarmen Rodriguez, DO [address] [place] [address] PCP - General Family Medicine 12/17/16 Corporate Treasury Analyst Relationship Specialty Start Date End Date JenniferMarycarmen shetty DO [address] [place], [place] [phone] PCP - General Family Medicine 12/17/16 Team Status: Active Member Role Status Dates Dr. Marycarmen Rodriguez DO Family Provider Active Marycarmen Rodriguez Primary Care Provider Active Team Status: Inactive Member Role Status Dates Dr. Marycarmen Rodriguez DO Primary Care Provider, Referrin g Provider Active Luz Elena Mckeon HOOKER OPERATOR, HOOKER OPERATOR-C Attending Provider Active Team Status: Inactive [...] Primary Care Provider Active Luz Elena Mckeon HOOKER OPERATOR, HOOKER OPERATOR-C Attending Provider Active Team Status: Inactive Member Role Status Dates Dr. Marycarmen Rodriguez DO Primary Care Provider Active Luz Elena Mckeon HOOKER OPERATOR, HOOKER OPERATOR-C Attending Provider, Referring P sharon Active [...] Rodriguez DO Attending Provider Active Marycarmen Rodriguez OLS Primary Care Provider Active Team Status: Inactive Member Role Status Dates Dr. Marycarmen Rodriguez DO Primary Care Provider Active Dr. Jose Hay MD Attending Provider, Referring Pr lynne Active Team Status: Active Member Role Status [...] Hall DO Emergency Provider Active Dr. Alka Loe MD Admit Provider, Other Provider Active Dr. Shaan Santos DO Attending Provider Active Team Status: Active Member Role Status Dates Dr. Marycarmen Rodriguez DO Primary Care Provider Active Luz Elena Mckeon HOOKER OPERATOR, HOOKER OPERATOR-C Attending Provider, Referring P sharon Active [...] Primary Care Provider Active Luz Elena Mckeon HOOKER OPERATOR, HOOKER OPERATOR-C Attending Provider Active Team Status: Inactive [...] 2024 End: April 17, 2024 Gustabo Pérez HOOKER OPERATOR, HOOKER OPERATOR-C Attending Provider Active S tart: April 17, 2024 End: April 17, 2024 Team Status: Inactive Member Role Status Dates Dr. Marycarmen Rodriguez DO Primary Care Provider Active Start: April 17, 2024 End: April 17, 2024 Gustabo Pérez HOOKER OPERATOR, HOOKER OPERATOR-C Attending Provider Active S tart: April 17, 2024 End: April 17, 2024 Gustabo Pérez HOOKER OPERATOR, HOOKER OPERATOR-C Referring Provider Active S tart: April [...] 2024 End: July 03, 2024 Marni Horn HOOKER OPERATOR, HOOKER OPERATOR-C Attending Provider Active Start: July 03, 2024 End: July 03, 2024 Team Status: Active Member Role Status Dates Dr. Marycarmen Rodriguez DO Primary Care Provider Active Start: July 07, 2024 Marni Horn HOOKER OPERATOR, HOOKER OPERATOR-C Attending Provider Active Start: July 07, 2024 Marni Horn HOOKER OPERATOR, HOOKER OPERATOR-C Referring Provider Active Start: July 07, 2024 Team Status: Inactive Member Role Status Dates Dr. Marycarmen Rodriguez DO Primary Care Provider Active Start: July 07, 2024 End: July 07, 2024 Marni Horn HOOKER OPERATOR, HOOKER OPERATOR-C Attending Provider Active Start: July 07, 2024 End: July 07, 2024 Marni Horn HOOKER OPERATOR, HOOKER OPERATOR-C Referring Provider Active Start: July 07, 2024 End: July 07, 2024 Team Status: Active Member Role Status Dates Dr. Marycarmen Rodriguez DO Primary Care Provider Active Start: July 17, 2024 Marni Horn HOOKER OPERATOR, HOOKER OPERATOR-C Attending Provider Active Start: July 17, 2024 Marni Horn HOOKER OPERATOR, HOOKER OPERATOR-C Referring Provider Active Start: July 17, 2024 Team Status: Active Member Role Status Dates Dr. Marycarmen Rodriguez DO Primary Care Provider Active Start: July 18, 2024 Marni Horn HOOKER OPERATOR, HOOKER OPERATOR-C Attending Provider Active Start: July 18, 2024 Marni Horn HOOKER OPERATOR, HOOKER OPERATOR-C Referring Provider Active Start: July 18, 2024 Team Status: Active Member Role Status Dates Dr. Marycarmen Rodriguez DO Primary Care Provider Active Start: July 18, 2024 Marni Horn HOOKER OPERATOR, HOOKER OPERATOR-C Referring Provider Active Start: July 18, 2024 Marni Horn HOOKER OPERATOR, HOOKER OPERATOR-C Other Provider Active Start: July 18, 2024 Dr. Zen East DO Attending Provider Active S tart: July 18, 2024 Team Status: Inactive Member Role Status Dates Dr. Marycarmen Rodriguez DO Primary Care Provider Active Start: July 17, 2024 End: July 17, 2024 Marni Horn HOOKER OPERATOR, HOOKER OPERATOR-C Attending Provider Active Start: July 17, 2024 End: July 17, 2024 Marni Horn HOOKER OPERATOR, HOOKER OPERATOR-C Referring Provider Active Start: July 17, 2024 End: July 17, 2024 Team Status: Inactive Member Role Status Dates Dr. Marycarmen Rodriguez DO Primary Care Provider Active Start: July 18, 2024 End: July 18, 2024 Marni Horn HOOKER OPERATOR, HOOKER OPERATOR-C Attending Provider Active Start: July 18, 2024 End: July 18, 2024 Marni Horn HOOKER OPERATOR, HOOKER OPERATOR-C Referring Provider Active Start: July 18, 2024 End: July 18, 2024 Team Status: Inactive Member Role Status Dates Dr. Marycarmen Rodriguez DO Primary Care Provider Active Start: August 03, 2024 End: August 03, 2024 Marni Horn HOOKER OPERATOR, HOOKER OPERATOR-C Attending Provider Active Start: August 03, 2024 End: August 03, 2024 Marni Horn HOOKER OPERATOR, HOOKER OPERATOR-C Referring Provider Active Start: August 03, 2024 End: August 03, 2024 Team Status: Inactive Member Role Status Dates Dr. Marycarmen Rodriguez DO Primary Care Provider Active Start: September 20, 2024 End: September 20, 2024 Dr. Marycarmen Rodriguez DO Referring Provider Active Start: September 20, 2024 End: September 20, 2024 Maren Olivas NP-C Attending Provider Active Start: September 20, 2024 End: September 20, 2024 Team Status: Inactive Member Role Status Dates Dr. Marycarmen Rodriguez DO Primary Care Provider Active Start: September 20, 2024 End: September 20, 2024 Maren Olivas NP-C Attending Provider Active Start: September 20, 2024 End: September 20, 2024 Maren Olivas NP-C Referring Provider Active Start: September 20, 2024 End: September 20, 2024 Team Status: Active Member Role Status Dates Dr. Marycarmen Rodriguez DO Primary Care Provider Active Start: September 22, 2024 Marni Horn HOOKER OPERATOR, HOOKER OPERATOR-C Attending Provider Active Start: September 22, 2024 Team Status: Inactive Member Role Status Dates Dr. Marycarmen Rodriguez DO Primary Care Provider Active Start: September 22, 2024 End: September 22, 2024 Marni Horn HOOKER OPERATOR, HOOKER OPERATOR-C Attending Provider Active Start: September 22, 2024 [...] S tart: July 17, 2024 Marni Horn HOOKER OPERATOR, HOOKER OPERATOR-C Referring Provider Active Start: July 17, 2024 Team Status: Inactive Member Role Status Dates Dr. Marycarmen Rodriguez DO Primary Care Provider Active Start: October 18, 2024 End: October 18, 2024 Dr. Brooks Carpenter MD Attending Provider Active Start: October 18, 2024 End: October 18, 2024 Dr. Brooks Carpenter MD Referring Provider Active Start: October 18, 2024 End: October 18, 2024 Gustabo Pérez HOOKER OPERATOR, HOOKER OPERATOR-C Other Provider Active Start : October 18, 2024 End: October 18, 2024 Team Status: Active Member Role Status Dates Dr. Marycarmen Rodriguez DO Primary Care Provider Active Start: October 18, 2024 Marni Horn HOOKER OPERATOR, HOOKER OPERATOR-C Attending Provider Active Start: October 18, 2024 Team Status: Inactive Member Role Status Dates Dr. Marycarmen Rodriguez DO Primary Care Provider Active Start: October 25, 2024 End: October 25, 2024 Dr. Marycarmen Rodriguez DO Referring Provider Active Start: October 25, 2024 End: October 25, 2024 Gustabo Pérez HOOKER OPERATOR, HOOKER OPERATOR-C Attending Provider Active S tart: October 25, 2024 End: October 25, 2024 Team Status: Inactive Member Role Status Dates Dr. Marycarmen Rodriguez DO Primary Care Provider Active Start: October 18, 2024 End: October 18, 2024 Marni Horn HOOKER OPERATOR, HOOKER OPERATOR-C Attending Provider Active Start: October 18, 2024 End: October 18, 2024 Team Status: Active Member Role/Relationship Status Dates Dr. Marycarmen Rodriguez DO Primary Care Provider Active Team Status: Inactive Member Role/Relationship Status Dates Dr. Marycarmen Rodriguez DO Primary Care Provider Active Start: July 03, 2024 End: July 03, 2024 Dr. Marycarmen Rodriguez DO Referring Provider Active Start: July 03, 2024 End: July 03, 2024 Marni Horn HOOKER OPERATOR, HOOKER OPERATOR-C Attending Provider Active Start: July 03, 2024 End: July 03, 2024 Team Status: Inactive Member Role/Relationship Status Dates Dr. Marycarmen Rodriguez DO Primary Care Provider Active Start: July 07, 2024 End: July 07, 2024 Marni Horn HOOKER OPERATOR, HOOKER OPERATOR-C Attending Provider Active Start: July 07, 2024 End: July 07, 2024 Marni Horn HOOKER OPERATOR, HOOKER OPERATOR-C Referring Provider Active Start: July 07, 2024 End: July 07, 2024 Team Status: Inactive Member Role/Relationship Status Dates Dr. Marycarmen Rodriguez DO Primary Care Provider Active Start: July 17, 2024 End: July 17, 2024 Marni Horn HOOKER OPERATOR, HOOKER OPERATOR-C Attending Provider Active Start: July 17, 2024 End: July 17, 2024 Marni Horn HOOKER OPERATOR, HOOKER OPERATOR-C Referring Provider Active Start: July 17, 2024 End: July 17, 2024 Team Status: Active Member Role/Relationship Status Dates Dr. Marycarmen Rodriguez DO Primary Care Provider Active Start: July 17, 2024 Dr. Zen East DO Attending Provider Active S tart: July 17, 2024 Marni Horn HOOKER OPERATOR, HOOKER OPERATOR-C Referring Provider Active Start: July 17, 2024 Team Status: Inactive Member Role/Relationship Status Dates Dr. Marycarmen Rodriguez DO Primary Care Provider Active Start: July 18, 2024 End: July 18, 2024 Marni Horn HOOKER OPERATOR, HOOKER OPERATOR-C Attending Provider Active Start: July 18, 2024 End: July 18, 2024 Marni Horn HOOKER OPERATOR, HOOKER OPERATOR-C Referring Provider Active Start: July 18, 2024 End: July 18, 2024 Team Status: Active Member Role/Relationship Status Dates Dr. Marycarmen Rodriguez DO Primary Care Provider Active Start: July 18, 2024 Marni Horn HOOKER OPERATOR, HOOKER OPERATOR-C Referring Provider Active Start: July 18, 2024 Marni Horn HOOKER OPERATOR, HOOKER OPERATOR-C Other Provider Active Start: July 18, 2024 Dr. Zen East , Attending Provider Active S tart: July 18, 2024 Team Status: Inactive Member Role/Relationship Status Dates Dr. Marycarmen Rodriguez DO Primary Care Provider Active Start: August 03, 2024 End: August 03, 2024 Marni Horn HOOKER OPERATOR, HOOKER OPERATOR-C Attending Provider Active Start: August 03, 2024 End: August 03, 2024 Marni Horn HOOKER OPERATOR, HOOKER OPERATOR-C Referring Provider Active Start: August 03, 2024 End: August 03, 2024 Team Status: Inactive Member Role/Relationship Status Dates Dr. Marycarmen Rodriguez DO Primary Care Provider Active Start: September 20, 2024 End: September 20, 2024 Dr. Marycarmen Rodriguez DO Referring Provider Active Start: September 20, 2024 End: September 20, 2024 Maren Olivas NP-C Attending Provider Active Start: September 20, 2024 End: September 20, 2024 Team Status: Inactive Member Role/Relationship Status Dates Dr. Marycarmen Rodriguez DO Primary Care Provider Active Start: September 20, 2024 End: September 20, 2024 Maren Olivas NP-C Attending Provider Active Start: September 20, 2024 End: September 20, 2024 Maren Olivas NP-C Referring Provider Active Start: September 20, 2024 End: September 20, 2024 Team Status: Inactive Member Role/Relationship Status Dates Dr. Marycarmen Rodriguez DO Primary Care Provider Active Start: September 22, 2024 End: September 22, 2024 Marni Horn NP, HOOKER OPERATOR-C Attending Provider Active Start: September 22, 2024 End: September 22, 2024 Team Status: Inactive Member Role/Relationship Status Dates Dr. Marycarmen Rodriguez DO Primary Care Provider Active Start: September 29, 2024 End: September 29, 2024 Dr. Marycarmen Rodriguez DO Attending Provider Active Start: September 29, 2024 End: September 29, 2024 Dr. Marycarmen Rodriguez DO Referring Provider Active Start: September 29, 2024 End: September 29, 2024 Team Status: Inactive Member Role/Relationship Status Dates Dr. Marycarmen Rodriguez DO Primary Care Provider Active Start: October 18, 2024 End: October 18, 2024 Dr. Brooks Carpenter MD Attending Provider Active Start: October 18, 2024 End: October 18, 2024 Dr. Brooks Carpenter MD Referring Provider Active Start: October 18, 2024 End: October 18, 2024 Gustabo Pérez HOOKER OPERATOR, HOOKER OPERATOR-C Other Provider Active Start : October 18, 2024 End: October 18, 2024 Team Status: Inactive Member Role/Relationship Status Dates Dr. Marycarmen Rodriguez DO Primary Care Provider Active Start: October 18, 2024 End: October 18, 2024 Marni Horn HOOKER OPERATOR, HOOKER OPERATOR-C Attending Provider Active Start: October 18, 2024 End: October 18, 2024 Team Status: Inactive Member Role/Relationship Status Dates Dr. Marycarmen Rodriguez DO Primary Care Provider Active Start: October 25, 2024 End: October 25, 2024 Dr. Marycarmen Rodriguez DO Referring Provider Active Start: October 25, 2024 End: October 25, 2024 Gustabo Pérez HOOKER OPERATOR, HOOKER OPERATOR-C Attending Provider Active S tart: October 25, 2024 End: October 25, 2024 Team Status: Active Member Role/Relationship Status Dates Dr. Marycarmen Rodriguez DO Primary Care Provider Active Start: October 26, 2024 Marni Horn HOOKER OPERATOR, HOOKER OPERATOR-C Attending Provider Active Start: October 26, 2024 Marni Horn HOOKER OPERATOR, HOOKER OPERATOR-C Referring Provider Active Start: October 26, 2024 Team Status: Inactive Member Role/Relationship Status Dates Dr. Marycarmen Rodriguez DO Primary Care Provider Active Start: October 31, 2024 End: October 31, 2024 Dr. Marycarmen Rodriguez DO Referring Provider Active Start: October 31, 2024 End: October 31, 2024 Maren Olivas NP-C Attending Provider Active Start: October 31, 2024 End: October 31, 2024 Team Status: Inactive Member Role/Relationship Status Dates Dr. Marycarmen Rodriguez DO Primary Care Provider Active Start: October 26, 2024 End: October 26, 2024 Marni Horn HOOKER OPERATOR, HOOKER OPERATOR-C Attending Provider Active Start: October 26, 2024 End: October 26, 2024 Marni Horn NP, HOOKER OPERATOR-C Referring Provider Active Start: October 26, 2024 End: October 26, 2024 Goals (unrecognized section and content) Goals [...] BE BASED ON THE PRIMARY CLINICAL RECORDS. [employer] [facility]. provides no warranty or guarantee of the accuracy or completeness of information in this document.
--- NOTE | 2024-11-10 07:00 | ECHOCS_ITS ---
Reason For Study Reason For Study: SHORTNESS OF BREATH Procedure This was a 2D Doppler, Color Flow transthoracic echocardiogram. The study was technically difficult. Exam performed in department. Left Ventricle Normal left ventricle. Left ventricular systolic function is normal. The LV ejection fraction is 60 %. No regional wall motion abnormalities noted. Right Ventricle Normal systolic function. Atria Normal atrial septum. Mitral Valve The mitral valve is structurally normal. No prolapse or stenosis seen. No mitral valve insufficiency. Tricuspid Valve Unable to estimate RV systolic pressure due to insufficient tricuspid regurgitant envelope. Aortic Valve The aortic valve is not well visualized in the short axis view. Moderate diffuse aortic valve calcification. Great Vessels Normal sized aortic root. Inferior vena cava collapse with sniff. The inferior vena cava is not dilated. Pericardium/Pleural Epicardial fat. Medication Diluted definity 1ml given slow IV push to enhance endocardial definition. MMode/2D Measurements & Calculations LVIDd: 4.8 cm IVSd: 0.96 cm LVOT diam: 2.0 cm LVIDs: 3.1 cm LVPWd: 1.1 cm LVOT area: 3.2 cm2 RVDd: 3.5 cm FS: 35.7 % Ao root diam: 3.1 cm LAV(MOD-bp): 35.9 ml LVAd ap4: 29.2 cm2 LAV(MOD-bp) Indexed: 16.0 ml/m2 LVLd ap4: 7.5 cm LAV(MOD-sp2): 36.1 ml EDV(MOD-sp4): 91.9 ml LAV(MOD-sp4): 37.0 ml EDV(sp4-el): 96.7 ml LVAs ap4: 16.3 cm2 LVLs ap4: 5.9 cm ESV(MOD-sp4): 35.7 ml ESV(sp4-el): 38.1 ml EF(MOD-sp4): 61.2 % EF(sp4-el): 60.6 % SV(MOD-sp4): 56.3 ml SV(sp4-el): 58.6 ml LA A4 area: 16.1 cm2 SI(MOD-sp4): 25.1 ml/m2 LA dimension(2D): 3.5 cm RA A4 area: 14.4 cm2 TAPSE: 2.1 cm Time Measurements MV dec time: 0.22 sec Doppler Measurements & Calculations MV E max nicho: 92.4 cm/sec Lat Peak E' Nicho: 18.7 cm/sec Med Peak E' Nicho: 10.6 cm/sec MV A max nicho: 80.8 cm/sec E/E' lat: 5.0 E/E' med: 8.7 MV E/A: 1.1 Ao V2 max: 205.6 cm/sec LV V1 max: 132.1 cm/sec PA V2 max: 160.5 cm/sec Ao max P.9 mmHg LV V1 max P.0 mmHg Ao V2 mean: 146.1 cm/sec Ao mean P.5 mmHg Ao V2 VTI: 44.3 cm LONG(V,D): 2.1 cm2 TR max nicho: 228.2 cm/sec TR max P.8 mmHg ECHO/Echo Complete W/ Contrast Interpretation Summary The LV ejection fraction is 60 %. Ordering Physician: Maren Olivas Referring Physician: MARYCARMEN RODRIGUEZ Performed By: Maida Gómez RDCS
--- NOTE | 2024-11-13 15:37 | STRESSREP ---
Stress Test Report Date: 11/10/2024 Procedure: Pharmacologic stress nuclear imaging study Indications: Chest pain Consent: Per the patient Procedure: The patient underwent pharmacologic (Regadenoson 0.4mg ) evaluation with a peak heart rate of 114 beats per minute (80%predicted maximal heart rate) and a peak blood pressure of 148/82 mmHg. The baseline ECG demonstrated sinus rhythm. The peak pharmacologic ECG did not show any ischemic changes. There were no cardiac dysrhythmias pretest, during pharmacologic infusion, or recovery. Patient complained of shortness of breath with Lexiscan administration. The patient was injected with 14.6 millicuries of technetium 99m Cardiolite and subsequently rest SPECT Cardiolite nuclear imaging was obtained in the horizontal long, vertical long, and short axis views. The patient underwent pharmacologic (Regadenoson) evaluation. The patient was injected with 44.7 millicuries of technetium 99m Cardiolite and subsequently stress SPECT Cardiolite nuclear imaging was obtained in the horizontal long, vertical long, and short axis views. A gated Cardiolite study at peak stress was obtained. The examination was stopped secondary to completion of protocol. Rest and stress SPECT Cardiolite nuclear imaging status post realignment, normalization, and attenuation correction demonstrate a fixed perfusion defect at rest, compatible with previous inferior apical infarct. Mild sriram-infarct ischemia is noted. There is end systolic thickening and brightening. The gated Cardiolite study demonstrates myocardial thickening and inward wall motion. The reported LVEF is 62%. Impression: 1. Pharmacologic (Regadenoson) evaluation 2. Peak pharmacologic ECG with no diagnostic ischemic changes. 3. There were no cardiac dysrhythmias pretest, during pharmacologic infusion, or recovery. 5. 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 6. The gated Cardiolite study reports an LVEF of 62%. This note was generated with [employer] software. It may contain incorrect words, spelling, and punctuation that were not noted in checking the note before signing.
== END | disposition home or self-care (01) ==
LOC: CVS 06:53
PROVIDERS: PCP Family Medicine; Referring Provider Nurse Practitioner Family; Visit Provider Nurse Practitioner Family
DX: R06.02 Shortness of breath (principal); I25.10 Atherosclerotic heart disease of native coronary artery without angina pectoris; R07.89 Other chest pain
CPT/HCPCS: 78452; 93017; 93306; A9500; Q9957; A4216; C8929; J2785

== ENCOUNTER → 2024-11-20 | Outpatient (CLI) | payer MEDICARE, OTHER, SELFPAY ==
[2018-08-03 13:04] VITALS: BMI 19.8
--- NOTE | 2024-11-20 11:42 | RAD_ITS ---
EXAM: XR Left Shoulder Complete, 2 or More Views CLINICAL INDICATION: LEFT SHOULDER PAIN TECHNIQUE: Two or more views of the left shoulder. COMPARISON: No relevant prior studies available. FINDINGS: BONES/JOINTS: Moderate degenerative changes of the acromioclavicular glenohumeral joints. Anchors. No acute fracture. No dislocation. SOFT TISSUES: Unremarkable. RAD/Shoulder min 2 Views IMPRESSION: Degenerative changes as above. Reading Location: [id number]
== END | disposition home or self-care (01) ==
LOC: RAD 11:40
PROVIDERS: PCP Family Medicine; Referring Provider Anesthesiology Pain Medicine; Visit Provider Anesthesiology Pain Medicine
DX: M25.512 Pain in left shoulder (principal)
CPT/HCPCS: 73030

== ENCOUNTER → 2024-11-22 | Outpatient (CLI) | payer MEDICARE, OTHER, SELFPAY ==
[2018-08-03 13:04] VITALS: BMI 19.8
--- NOTE | 2024-11-22 13:42 | RAD_ITS ---
PROCEDURE: CHEST PA AND LATERAL 11/22/2024 REASON FOR EXAM: PRE-OPERATIVE: [facility] TECHNIQUE: CHEST PA AND LATERAL COMPARISON: 10/12/2023 FINDINGS: Left lower lobe/retrocardiac opacity not excluded. No pleural effusion or pneumothorax. Cardiac silhouette is within normal limits. Calcified aortic arch. Cervical ACDF. No acute fractures. RAD/Chest PA and Lateral IMPRESSION: Left lower lobe/retrocardiac opacity not excluded. Reading Location: [id number]
[2024-11-22 14:03] LABS: Hematocrit 36.5 % (40-54); Hemoglobin 11.8 g/dL (13.0-16.5); Immature Granulocytes Count 0.040 X10^3/uL (0.0-0.0); Mean Corp Hgb Conc 32.3 g/dL (32-36); Mean Corpuscular Volume 91.7 fL (80-94); Mean Platelet Vol. 13.0 fl (6.2-12.0); NRBC Flagged by Analyzer 0 % (0-5); Platelet Count 148 K/mm3 (150-450); RBC Distribution Width CV 13.8 % (11.6-14.6); RBC Distribution Width SD 47.0 fl (35.1-43.9); Red Blood Count 3.98 M/mm3 (4.6-6.2); White Blood Count 8.5 K/mm3 (4.4-11.0)
[2024-11-22 14:52] LABS: Anion Gap 15 (5-15); BUN 39 mg/dL (4-19); BUN/Creat Ratio 15.6 RATIO (10-20); Calcium,Total 9.1 mg/dL (7.6-11.0); Carbon Dioxide 21.6 mmol/L (21.0-32.0); Chloride 102 mmol/L (98-108); Glucose 262 mg/dL (70-99); Potassium 4.8 mmol/L (3.3-5.1); Pro- Brain NATRIURETIC PEPTIDE 188 pg/mL (<=1800)
== END | disposition home or self-care (01) ==
LOC: RAD 13:32
PROVIDERS: PCP Family Medicine; Referring Provider Nurse Practitioner Family; Visit Provider Nurse Practitioner Family
DX: R07.89 Other chest pain (principal); I50.9 Heart failure, unspecified; E11.9 Type 2 diabetes mellitus without complications; R06.02 Shortness of breath; Z95.5 Presence of coronary angioplasty implant and graft
CPT/HCPCS: 36415; 71046; 80048; 83880; 85025

== ENCOUNTER 2024-11-26 17:37 | Emergency (ER) | payer MEDICARE, OTHER, SELFPAY ==
[2018-08-03 13:04] VITALS: BMI 19.8
[2024-11-26] VITALS (15 sets, daily range): BP systolic 107–132; BP diastolic 58–94; PULSE 68–93; RESP 16–21; TEMP 36.7–36.9; O2SAT 95–98; BMI 37.3
--- NOTE | 2024-11-26 18:03 | RAD_ITS ---
PROCEDURE: CHEST 1 VIEW (PORTABLE) 11/26/2024 REASON FOR EXAM: CHEST PAIN TECHNIQUE: Frontal view of the chest. COMPARISON: 11/22/2024 FINDINGS: Prior cervical fusion. Lungs are clear. Normal mediastinum RAD/Chest 1 View (Portable) IMPRESSION: Negative for edema Reading Location[facility]
--- NOTE | 2024-11-26 18:03 | CT_ITS ---
PROCEDURE: SPINE CERVICAL WITHOUT CONTRAS 11/26/2024 REASON FOR EXAM: TRAUMA TECHNIQUE: SPINE CERVICAL WITHOUT CONTRAS Coronal and Sagittal reconstruction series were provided. One or more dose reduction techniques were used (e.g., Automated exposure control, adjustment of the mA and/or kV according to patient size, use of iterative reconstruction technique. RADIATION DOSE SUMMARY: DLP: 652 mGycm2 COMPARISON: MR from 09/19/22 FINDINGS: Cervical ACDF with interbody spacers spanning C4-C6 without hardware complications. No acute compression deformity, fracture, or subluxation. Moderate multilevel degenerative changes with moderate multilevel central canal stenosis and foraminal stenosis due to posterior disc-osteophyte complex, facet hypertrophy, and uncovertebral hypertrophy. No high-grade central canal stenosis. The prevertebral soft tissues are not thickened. Thyroid is unremarkable. Limited sections of the lung apices demonstrate no pneumothorax. CT/Spine Cervical without Contras IMPRESSION: No acute compression deformity, fracture, or subluxation. Moderate multilevel d egenerative changes of the cervical spine. Cervical ACDF with interbody spacers spanning C4-C6 without hardware complicati ons. Reading Location: [id number]
--- NOTE | 2024-11-26 18:03 | CT_ITS ---
PROCEDURE: BRAIN/HEAD WITHOUT CONTRAST 11/26/2024 REASON FOR EXAM: TRAUMA TECHNIQUE: BRAIN/HEAD WITHOUT CONTRAST Coronal and Sagittal reconstruction series were provided. One or more dose reduction techniques were used (e.g., Automated exposure control, adjustment of the mA and/or kV according to patient size, use of iterative reconstruction technique. RADIATION DOSE SUMMARY: DLP: 650 mGycm COMPARISON: none FINDINGS: There is no acute infarct, intracranial hemorrhage, or mass effect. There is no hydrocephalus or significant midline shift. There is mild chronic microvascular ischemic changes and mild parenchymal volume loss. No acute, depressed calvarial fractures. No large scalp hematomas. CT/Brain/Head without Contrast IMPRESSION: No acute intracranial process. Reading Location: [id number]
--- NOTE | 2024-11-26 18:03 | RAD_ITS ---
PROCEDURE: KNEE 4 OR MORE VIEWS 11/26/2024 REASON FOR EXAM: TRAUMA TECHNIQUE: KNEE 4 OR MORE VIEWS FINDINGS: No fracture or dislocation. Mild lateral patellofemoral joint space narrowing. Mild lateral tibiofemoral joint space narrowing. RAD/Knee 4 or More Views IMPRESSION: Degenerative changes without fracture Reading [facility]
--- NOTE | 2024-11-26 18:03 | EKG12_ITS ---
Test Reason : POST PCI Blood Pressure : */* mmHG Vent. Rate : 62 BPM Atrial Rate : 62 BPM P-R Int : 176 ms QRS Dur : 84 ms QT Int : 426 ms P-R-T Axes : 65 60 54 degrees QTcB Int : 432 ms Normal sinus rhythm Normal ECG Confirmed by NAOMIE PALOMO, PARVEZ ([id number]), editorial project manager VERONICA SCOTT ([id number]) on 11/27/2024 1:02:44 PM Referred By: Confirmed By: PARVEZ AKBAR MD
--- NOTE | 2024-11-26 18:06 | ED.VIS.FALL ---
HPI HPI - Fall History of Present Illness Chief Complaint: Chest Pain Narrative Narrative: 79-year-old male presents via EMS status post fall. He is unsure if he had a syncopal episode or not. He relates history that he has angina and shortness of breath. He does not wear oxygen at home. He supposed to have heart catheterization by Dr. Artemio Kulkarni as an outpatient tomorrow. He was at a [employer] today, walking down the steps of a deck to get to the pool. His was behind him. His and his daughter did not witness the fall, but his left knee may have given out underneath him. He fell forward. The last thing he remembered was walking down the stairs, and then picking him up and taking him to the side. States he has pain in his left knee greater than his right and that his toes feel funny on the left foot secondary to his knee pain. He also complains of pain in his right hand at the base of his second digit, and in his palm. He is unsure of his last tetanus immunization as he sustained abrasions to his bilateral knees. He denies any headache or neck pain. He complained to EMS that he was having chest heaviness which she has had previously and is the reason for his catheterization scheduled for tomorrow. They placed him on oxygen for comfort. He presents status post fall with chest heaviness. [facility] Medical History Shortness of breath Unstable angina Fatigue Syncope Left-sided weakness History of COVID-19 Presence of stent in coronary artery (~08/31/22) Dyslipidemia Diabetes mellitus 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 Coronary artery disease Angina pectoris Abnormal PFT Chest heaviness Palpitations DEAN (dyspnea on exertion) Dizziness Leg pain Cough Exposure to COVID-19 virus Nonhealing nonsurgical wound with fat layer exposed Laceration without foreign body of scalp, subsequent encounter Acute left-sided weakness Essential hypertension CHF (congestive heart failure) History of melanoma Obesity (BMI 35.0-39.9 without comorbidity) CAD (coronary artery disease) 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.9) COPD (chronic obstructive pulmonary disease) TIA (transient ischemic attack) Obstructive sleep apnea 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, stage 3 Atherosclerotic heart disease [place] coronary artery w/angina pectoris Type 2 diabetes mellitus without complications Hyperlipidemia Obesity Home Medications ?Medication ?Instructions ?Recorded ?Last Taken ?Type aspirin 81 mg tablet,delayed 81 mg PO DAILY@0800 health 01/21/17 10/11/23 History release maintenance mirtazapine 15 mg tablet (Remeron) 15 mg PO QHS sleep 09/21/18 10/11/23 History cyanocobalamin (vitamin B-12) 1,000 mcg PO DAILY vitamin ##0 06/01/19 10/11/23 History 1,000 mcg capsule magnesium oxide 400 mg (241.3 mg 800 mg PO DAILY SUPPLEMENT 08/01/21 10/11/23 History magnesium) tablet cetirizine 10 mg tablet 10 mg PO DAILY PRN Allergic 09/16/21 10/11/23 History Reaction cholecalciferol (vitamin D3) [address] 09/16/21 10/11/23 History mcg (1,000 unit) tablet fluoxetine 40 mg capsule 80 mg PO DAILY DEPRESSION 90 days 09/16/21 10/11/23 History #180 caps acetaminophen 325 mg tablet 650 mg PO Q6H PRN Pain -02/0910/12/23 Unknown History glimepiride 4 mg tablet 4 mg PO QDAY 03/20/24 Unknown History atorvastatin 40 mg tablet 40 mg PO QHS CHOLESTEROL #90 tabs 06/14/24 Unknown Rx clopidogrel 75 mg tablet [address] #90 tabs 06/14/24 Unknown Rx furosemide 40 mg tablet 40 mg PO BID #180 tabs 06/14/24 Unknown Rx losartan 100 mg tablet 100 mg PO DAILY #90 tabs 06/14/24 Unknown Rx nitroglycerin 0.4 mg sublingual 0.4 mg sublingual Q5-15M PRN CHEST 06/14/24 Unknown Rx tablet PAIN #25 tabs pantoprazole 40 mg tablet,delayed 40 mg PO DAILY GERD #90 tabs 06/14/24 Unknown Rx release potassium chloride 20 mEq 60 meq (3 x 20 mEq) PO BID 06/14/24 Unknown Rx tablet,extended release(part/cryst) supplement #180 tabs spironolactone 50 mg tablet 50 mg PO DAILY #90 tabs 06/14/24 Unknown Rx albuterol sulfate 90 mcg/actuation 2 inh inhalation Q4-6H PRN 09/20/24 Unknown Rx aerosol inhaler shortness of breath or wheezing #8.5 grams amlodipine 5 mg tablet 5 mg PO QPM 10/25/24 Unknown History isosorbide mononitrate 60 mg 60 mg PO BID #90 TABLETS 10/25/24 Unknown Rx tablet,extended release 24 hr metformin 500 mg tablet 500 mg PO QDAY 10/25/24 Unknown History metolazone 2.5 mg tablet 2.5 mg PO QDAY 10/25/24 Unknown History metoprolol succinate 25 mg 25 mg PO DAILY #30 tabs 10/25/24 Unknown Rx tablet,extended release 24 hr hydrocodone-acetaminophen 5-325mg 1 tab PO TID PRN pain 11/22/24 Unknown History 5mg-325mg Allergy/AdvReac Type Severity Reaction Status Date / Time No Known Allergies Allergy Verified 11/26/24 17:43 Family History Father Parkinsons disease Prostate cancer Mother Osteoporosis Surgical History Presence of coronary angioplasty implant and graft (~08/31/22) History of tympanostomy tube placement History of percutaneous transluminal coronary angioplasty (08/18/18) History of herniorrhaphy Hx of cholecystectomy History of tonsillectomy History of prostatectomy Social History household members: spouse and none Smoking Status: Former smoker quit date: 05/03/98 pack-years: 50 how long ago did patient quit smokin years ago alcohol intake: never substance use type: does not use caffeine: Yes Type: coffee and tea Number of servings: 6 ROS ROS ED ROS Narrative Review of systems positive for bilateral knee abrasions with left knee pain greater than right. Numbness of toes on left lower extremity. Hand pain in palm of hand at base of second digit. No headache, no neck pain. Positive chest heaviness. Has had history of chest heaviness. Scheduled for heart catheterization tomorrow. EXAM Physical Exam Narrative Exam Narrative: Afebrile. Vital signs noted. GCS 15. ABCs intact. Cardiovascular examination reveals regular rate and rhythm. Mild tachypnea. Lung sounds distant but moving a good amount of air. Abdomen soft and nontender. Positive abrasions bilateral knees. No active bleeding. Limited range of motion of left knee secondary to pain. EHL intact bilaterally. Mild tenderness to palpation palm of right hand at base of second digit. Const Vital Signs: 11/26/24 17:37 11/26/24 17:42 11/26/24 17:45 Temperature 98.2 F 98.2 F Temperature Source Oral Oral Pulse Rate 82 86 Respiratory Rate 20 H 21 H Respiratory Effort Normal Short of Breath Respiratory Depth Respiratory Pattern Blood Pressure 132/69 H 132/69 H Blood Pressure Mean 90 90 Pulse Ox 97 97 Oxygen Delivery Method Room Air Nasal Cannula Oxygen Flow Rate (L/min) 2 11/26/24 17:45 11/26/24 18:03 11/26/24 18:09 Temperature Temperature Source Pulse Rate 83 Respiratory Rate 19 H Respiratory Effort Normal Respiratory Depth Normal Respiratory Pattern Normal Blood Pressure Blood Pressure Mean Pulse Ox 97 96 96 Oxygen Delivery Method Nasal Cannula Nasal Cannula Oxygen Flow Rate (L/min) 2 2 11/26/24 18:15 11/26/24 18:30 11/26/24 18:33 Temperature Temperature Source Pulse Rate 93 Respiratory Rate 20 H Respiratory Effort Respiratory Depth Respiratory Pattern Blood Pressure 130/58 H 107/64 Blood Pressure Mean 77 79 Pulse Ox Oxygen Delivery Method Oxygen Flow Rate (L/min) 11/26/24 18:37 11/26/24 18:45 11/26/24 18:59 Temperature Temperature Source Pulse Rate 80 79 85 Respiratory Rate 20 H 19 H 19 H Respiratory Effort Respiratory Depth Respiratory Pattern Blood Pressure 107/84 H 122/63 H 122/63 H Blood Pressure Mean 91 78 82 Pulse Ox 95 Oxygen Delivery Method Room Air Oxygen Flow Rate (L/min) 11/26/24 20:00 11/26/24 21:00 Temperature 98.1 F 98.4 F Temperature Source Temporal Temporal Pulse Rate 78 73 Respiratory Rate 16 16 Respiratory Effort Respiratory Depth Respiratory Pattern Blood Pressure 109/94 H 132/68 H Blood Pressure Mean 99 89 Pulse Ox 97 95 Oxygen Delivery Method Room Air Room Air Oxygen Flow Rate (L/min) MDM MDM MDM Narrative Medical decision making narrative: The differential diagnosis includes but not limited to closed head injury versus intracranial hemorrhage versus syncopal episode versus unstable angina versus chronic angina versus tibial plateau fracture of left knee versus knee contusion with abrasion. Comprehensive workup was pursued. I reviewed the prehospital EKG which demonstrates normal sinus rhythm at [address] changes. No STEMI. EKG was obtained here as well and interpreted by myself independently as normal sinus rhythm at 84 bpm without ectopy or acute ST changes. No STEMI. I will obtain CT imaging of the brain to rule out intracranial hemorrhage and CT of the C-spine to rule out acute fracture. X-rays were obtained of the bilateral knees and the right hand also to rule out fracture. I reviewed his laboratory work and he has normal white count of 9.2 with hemoglobin stable at 11.8, hematocrit 36.7, platelet count slightly low at 132. When compared to prior labs, he has had chronic thrombocytopenia. BMP shows creatinine elevated at 2.34, but a few days ago was higher at 2.5, I feel this is his baseline currently. Sodium normal at 137 with potassium 4.4, glucose elevated 275 but he has a normal anion gap of 15 so I doubt diabetic ketoacidosis. BNP is elevated slightly at 162 but once again when compared to prior laboratories he is at his baseline and this is improved over previous. Initial high-sensitivity troponin is 18 with repeat being 20. I do not feel that his chest pain is related to an acute coronary syndrome that would require heparin and inpatient admission. I discussed this with Dr. Araujo with cardiology who agrees that he could be discharged to follow-up as an outpatient for his cardiac catheterization tomorrow morning. I reviewed the radiology reports of the CT of the brain and of the cervical spine which show no evidence of an acute hemorrhage or fracture. There are degenerative changes. On my individual interpretation of the bilateral knee x-rays, there is no evidence of acute fracture. Additionally, on my individual interpretation of the chest x-ray, no pneumonia or pneumothorax. X-ray of the right hand interpreted by myself independently shows no evidence of acute fracture. I reviewed the radiology reports for all of this imaging which confirms my independent interpretations of the x-rays. His wounds were cleansed and dressed. He was given 1 [place] which he usually takes at home for pain. He was able to ambulate without difficulty. At this point in time, he is motivated for discharge. I do not feel that he requires admission at this time or observation. I feel he can be discharged to follow-up with his cardiac catheterization tomorrow morning. Patient will continue his Lincoln at home and follow-up as previously directed. He will follow-up with his primary care provider for the injuries from his fall. I feel he can be discharged. Return instructions reviewed. Disposition is discharged home in stable condition. History & Record Review Discussion w/independent historian: Patient and Family Additional record(s) reviewed:: Prior ED visit and Prior labs Lab Data Attestation: I reviewed the patient's lab results. Labs: Laboratory Results - last 24 hr 11/26/24 11/26/24 17:45 20:15 WBC 9.2 RBC 4.04 L Hgb 11.8 L Hct 36.7 L MCV 90.8 MCH 29.2 MCHC 32.2 RDW Std Deviation 46.6 H RDW Coeff of [place] 13.9 Plt Count 132 L MPV 12.8 H Immature Gran % (Auto) 0.400 Neut % (Auto) 71.8 H Lymph % (Auto) 16.7 L [place] % (Auto) 9.5 Eos % (Auto) 1.3 Baso % (Auto) 0.3 Absolute Neuts (auto) 6.6 Absolute Lymphs (auto) 1.53 Nucleated RBC % 0 Sodium 137 Potassium 4.4 Chloride 100 Carbon Dioxide 21.5 Anion Gap 15 BUN 43 H Creatinine 2.34 H Estim Creat Clear Calc 31.97 L Est GFR (MDRD) Non-Af 28 L BUN/Creatinine Ratio 18.2 Glucose 275 H Calcium 9.2 Troponin T High Sens 18 Troponin T Hi Sens 2 Hr 20 NT pro BNP II 162 Radiography Chest X-Ray - ED: 1 View, Read by ED Physician and Read by Radiologist Diagnostic Testing: Clinical Impression(s) from Imaging Studies Brain CT 11/26/24 18:03 IMPRESSION: No acute intracranial process. Reading Location: [facility] Cervical Spine CT 11/26/24 18:03 IMPRESSION: No acute compression deformity, fracture, or subluxation. Moderate multilevel degenerative changes of the cervical spine. Cervical ACDF with interbody spacers spanning C4-C6 without hardware complications. Reading Location: [facility] Chest X-Ray 11/26/24 18:03 IMPRESSION: Negative for edema Reading Location: [facility] Knee X-Ray 11/26/24 18:03 IMPRESSION: Degenerative changes without fracture Reading Location: [facility] Hand X-Ray 11/26/24 18:07 IMPRESSION: Degenerative changes. No visible fracture. Reading Location: [facility] Knee X-Ray 11/26/24 18:07 IMPRESSION: Joint effusion Reading Location: [facility] Management Discussion w/another healthcare provider: [facility] (Dr. Araujo) Discharge Plan Triage Chief Complaint: Chest Pain Other Complaint: Fall ED Provider: Isael Bernabe Dx/Rx/DC Orders Clinical Impression: Fall, Contusion of left knee, Contusion of right knee, Abrasion, Contusion of hand, right Instructions: ED Abrasion, ED Hand Contusion, ED Contusion, Lower Extremity, ED Chest Pain, Uncertain Cause Prescriptions: No Action fluoxetine 40 mg capsule 80 mg PO DAILY 90 Days Qty: 180 magnesium oxide 400 mg (241.3 mg magnesium) tablet 800 mg PO DAILY cetirizine 10 mg tablet 10 mg PO DAILY PRN (Reason: Allergic Reaction) cholecalciferol (vitamin D3) 25 mcg (1,000 unit) tablet 25 mcg PO DAILY glimepiride 4 mg tablet 4 mg PO QDAY hydrocodone-acetaminophen 5-325 mg tablet 1 tab PO TID PRN (Reason: pain) albuterol sulfate 90 mcg/actuation HFA aerosol inhaler 2 inh inhalation Q4-6H PRN (Reason: shortness of breath or wheezing) Qty: 8.5 3RF amlodipine 5 mg tablet 5 mg PO QPM metformin 500 mg tablet 500 mg PO QDAY metolazone 2.5 mg tablet 2.5 mg PO QDAY isosorbide mononitrate 60 mg tablet extended release 24 hr 60 mg PO BID Qty: 90 3RF metoprolol succinate 25 mg tablet extended release 24 hr 25 mg PO DAILY Qty: 30 11RF aspirin 81 MG tablet 81 mg PO DAILY@0800 cyanocobalamin (vitamin B-12) 1,000 MCG capsule 1,000 mcg PO DAILY Qty: 0 acetaminophen 325 MG tablet 650 mg PO Q6H PRN (Reason: Pain -02/09) mirtazapine [Remeron] 15 mg tablet 15 mg PO QHS losartan 100 mg tablet 100 mg PO DAILY Qty: 90 3RF nitroglycerin 0.4 mg tablet, sublingual 0.4 mg SUBLINGUAL Q5-15M PRN (Reason: CHEST PAIN) Qty: 25 3RF atorvastatin 40 mg tablet 40 mg PO QHS Qty: 90 3RF clopidogrel 75 mg tablet 75 mg PO DAILY Qty: 90 3RF furosemide 40 mg tablet 40 mg PO BID Qty: 180 3RF potassium chloride 20 mEq tablet,ER particles/crystals 60 meq PO BID Qty: 180 3RF spironolactone 50 mg tablet 50 mg PO DAILY Qty: 90 3RF pantoprazole 40 mg tablet,delayed release (DR/EC) 40 mg PO DAILY Qty: 90 3RF Primary Care Provider: Victor M Luke Referrals: Victor M Luke DO [Primary Care Provider] - 3-5 Days if not improving Activity Restrictions/Additional Instructions: Have your cardiac catheterization performed tomorrow as scheduled at 8:30 in the morning. Return with new or worsening symptoms. Print Language: [place] Disposition Disposition: Home, Self Care
--- NOTE | 2024-11-26 18:07 | RAD_ITS ---
PROCEDURE: HAND MIN 3 VIEWS 11/26/2024 REASON FOR EXAM: TRAUMA TECHNIQUE: HAND MIN 3 VIEWS FINDINGS: No fracture, dislocation or loose body. Interphalangeal joint space narrowing RAD/Hand Min 3 Views IMPRESSION: Degenerative changes. No visible fracture. Reading [facility]
--- NOTE | 2024-11-26 18:07 | RAD_ITS ---
PROCEDURE: KNEE 4 OR MORE VIEWS 11/26/2024 REASON FOR EXAM: TRAUMA TECHNIQUE: KNEE 4 OR MORE VIEWS FINDINGS: Small joint effusion. No fracture or dislocation RAD/Knee 4 or More Views IMPRESSION: Joint effusion Reading [facility]
--- OUTSIDE RECORDS SUMMARY | 2024-11-26 18:10 | XMS RPT_ITS | CCD ---
Author Organization [facility] Care Team Providers Care Towel Hemmer Name Role Phone Unavailable Unavailable Unavailable Marycarmen Rodriguez DO Primary Care Provider [phone] Marycarmen Rodriguez DO Primary Care Provider [phone] MIN HOWARD Referring Unavailable MARYCARMEN RODRIGUEZ Primary Care Unavailable ELADIO INGRAM Attending Unavaila ble DAVJAIME, ELADIO ALLEN Admitting Unavaila ble MARYCARMEN RODRIGUEZ Primary Care Unavailable MARYCARMEN RODRIGUEZ Primary Care Unavailable ELADIO INGRAM Referring Unavaila ble DAVAKIS, ELADIO ALLEN Attending Unavaila ble MARYCARMEN RODRIGUEZ Primary Care Unavailable ELADIO INGRAM Admitting Unavaila ble DAVAKIS, ELADIO ALLEN Admitting Unavaila ble JENNIFERMARYCARMEN SHETTY Primary Care Unavailable MARYCARMEN RODRIGUEZ Primary Care Unavailable ELADIO INGRAM Referring Unavaila ble DAVAKIS, ELADIO ALLEN Attending Unavaila ble SCHWFERNANDA RODRIGUEZ Attending Unavailable MARYCARMEN RODRIGUEZ Primary Care Unavailable FERNANDA ACUÑA Referring Unavailable FERNANDA ACUÑA Attending Unavailable MARYCARMEN RODRIGUEZ Primary Care Unavailable MARYCARMEN RODRIGUEZ Admitting Unavailable ELADIO INGRAM Attending Unavaila ble MARYCARMEN RODRIGUEZ Referring Unavailable MARYCARMEN RODRIGUEZ Primary Care Unavailable ELADIO INGRAM Attending Unavaila MARYCARMEN Pena Primary Care Unavailable Dr. Marycarmen Rodriguez Primary Care Provider Dr. Marycarmen Rodriguez Referring Provider [phone] Mike PEREA, DWAINC Luz Elena Attending Provider Dr. Darnell Corral Attending Provider Mike ENVIRONMENTAL CONSERVATION OFFICER, ENVIRONMENTAL CONSERVATION OFFICER-C Luz Elena Referring Provider Mike ENVIRONMENTAL CONSERVATION OFFICER, ENVIRONMENTAL CONSERVATION OFFICER-C Luz Elena Other Provider [phone] Dr. John Palacios Attending Provider [phone] Mike ENVIRONMENTAL CONSERVATION OFFICER, ENVIRONMENTAL CONSERVATION OFFICER-C Luz Elena Referring Provider Dr. Marycarmen Rodriguez Primary Care Provider [phone] Dr. Marycarmen Rodriguez Referring Provider Mike ENVIRONMENTAL CONSERVATION OFFICER, ENVIRONMENTAL CONSERVATION OFFICER-C Luz Elena Attending Provider Dr. Zen East Attending Provider Dr. Marycarmen Rodriguez Primary Care Provider [phone] Dr. Marycarmen Rodriguez Referring Provider Dr. Merritt Persaud Attending Provider PARISH Youssef Attending Provider Mike PEREA, ELIAZAR-C Luz Elena Attending Provider Dr. John Palacios Attending Provider Dr. Merritt Persaud Referring Provider Dr. Marycarmen Rodriguez Primary Care Provider [phone] Marycarmen Rodriguez Referring Provider Dr. Merritt Persaud Attending Provider Marycarmen Gutierrez Primary Care Provider Unavail Adina Phillips Attending Provider Unavailable Dr. Marycarmen Rodriguez Referring Provider Dr. Jose Hay Attending Provider Dr. Marycarmen Rodriguez Primary Care Provider [phone] Jose Hay Admit Provider Dr. Jose Hay Referring Provider Jose Armando, Dr. Garcia Other Provider Dr. Alex Sanon Referring Provider Unavailable Dr. Pardeep Hall Emergency Provider Dr. Alka Leo Admit Provider Dr. Alka Leo Attending Provider Dr. Alka Leo Other Provider Dr. Shaan Santos Attending Provider Dr. Shaan Santos Other Provider Dr. Aimee Cummins Attending Provider Mike ENVIRONMENTAL CONSERVATION OFFICER, ENVIRONMENTAL CONSERVATION OFFICER-C Luz Elena Attending Provider Adina Vallejo Attending Provider Unavailable Dr. Jose Hay Attending Provider Dr. Marcin Araujo Attending Provider Dr. Alka Leo Referring Provider Dr. Marycarmen Rodriguez Referring Provider Dr. Marycarmen Rodriguez Primary Care Provider Adina Vallejo Attending Provider Unavailable Dr. Joes Hay Attending Provider Dr. Marycarmen Rodriguez DO Primary Care Provider Dr. Marycarmen Rodriguez DO Referring Provider Dr. Jose Hay MD Attending Provider Dr. Marycarmen Rodriguez DO Attending Provider Beto ENVIRONMENTAL CONSERVATION OFFICER-C, Gustabo H Attending Provider Beto ENVIRONMENTAL CONSERVATION OFFICER-C, Gustabo H Referring Provider Justina ENVIRONMENTAL CONSERVATION OFFICER-CMarni Attending Provider Justina ENVIRONMENTAL CONSERVATION OFFICER-CMarni Referring Provider Dr. Marycarmen Rodriguez DO Primary Care Provider Dr. Marycarmen Rodriguez DO Referring Provider Dr. Jose Hay MD Attending Provider Justina ENVIRONMENTAL CONSERVATION OFFICER-CMarni Other Provider Dr. Zen East DO Attending Provider Dr. Marycarmen Rodriguez DO Primary Care Provider Dr. Marycarmen Rodriguez DO Referring Provider Jennifer DO, Dr. Dow Attending Provider Jennifer DO, Dr. Dow Primary Care Provider Jennifer DO, Dr. Dow Referring Provider Brendon ENVIRONMENTAL CONSERVATION OFFICER-C, Maren Clarke Attending Provider Brendon ENVIRONMENTAL CONSERVATION OFFICER-C, Maren Clarke Referring Provider Cruzito CATHERINE, Dr. Zaldivar Attending Provider Pauline PALOMO, Dr. Guy Attending Provider Pauline PALOMO, Dr. Guy Referring Provider Roof ENVIRONMENTAL CONSERVATION OFFICER-C, Gustabo Gao Other Provider Roof ENVIRONMENTAL CONSERVATION OFFICER-C, Gustabo Gao Attending Provider Jennifer DO, Dr. Dow Primary Care Provider Jennifer DO, Dr. Dow Attending Provider Jennifer DO, Dr. Dow Primary Care Provider Horn ENVIRONMENTAL CONSERVATION OFFICER-C, Marni Attending Provider Horn ENVIRONMENTAL CONSERVATION OFFICER-C, Marni Referring Provider Jennifer DO, Dr. Dow Referring Provider Roof ENVIRONMENTAL CONSERVATION OFFICER-C, Gusatbo Gao Referring Provider Jennifer PALOMO, Dr. Lucas Attending Provider Unavailab bear Hay MD, Dr. Garcia Attending Provider JenniferDr. Marycarmen vera DO Primary Care Provider Horn ENVIRONMENTAL CONSERVATION OFFICER-C, Marni Attending Provider Horn ENVIRONMENTAL CONSERVATION OFFICER-CMarni Referring Provider JenniferDr. Marycarmen vera DO Referring Provider Brendon ENVIRONMENTAL CONSERVATION OFFICER-CMaren Attending Provider Brendon ENVIRONMENTAL CONSERVATION OFFICER-C, Maren Clarke Referring Provider JenniferDr. Marycarmen vera DO Attending Provider [phone] Pauline PALOMO, Dr. Guy Attending Provider Pauline PALOMO, Dr. Guy Referring Provider [phone] Roof ENVIRONMENTAL CONSERVATION OFFICER-C, Gustabo H Other Provider Roof ENVIRONMENTAL CONSERVATION OFFICER-C, Gustabo H Attending Provider Roof ENVIRONMENTAL CONSERVATION OFFICER-C, Gustabo H Referring Provider Jennifer PALOMO, Dr. Lucas Attending Provider Unavailab bear Hay MD, Dr. Garcia Attending Provider Jennifer, Marycarmen Primary Care Unavailable Zen East Attending Unavailable Horn ENVIRONMENTAL CONSERVATION OFFICER, Marni Referring Unavailable Jose Armando, Jose Referring Unavailable Jennifer, Marycarmen Primary Care Unavailable Jose Armando, Jose Attending Unavailable Jennifer, Marycarmen Primary Care Unavailable Roof, Gustabo H Referring Unavailable Roof, Gustabo H Consulting Unavailable Jose Armando, Jose Attending Unavailable Jennifer, Marycarmen Primary Care Unavailable Zen East Attending Unavailable Horn ENVIRONMENTAL CONSERVATION OFFICER, Marni Referring Unavailable Horn ENVIRONMENTAL CONSERVATION OFFICER, Marni Consulting Unavailable Jennifer, Marycarmen Primary Care Unavailable Horn ENVIRONMENTAL CONSERVATION OFFICER, Marni Attending Unavailable Horn ENVIRONMENTAL CONSERVATION OFFICER, Marni Referring Unavailable Jennifer, Marycarmen Referring Unavailable Jennifer, Marycarmen Primary Care Unavailable Maren Olivas Attending Unavailable Jennifer, Marycarmen Referring Unavailable Jennifer, Marycarmen Primary Care Unavailable Roof, Gustabo H Attending Unavailable Jennifer, Marycarmen Referring Unavailable Jennifer, Marycarmen Primary Care Unavailable Maren Olivas Attending Unavailable Jennifer, Marycarmen Primary Care Unavailable Lance Rodriguez Attending Unavailable Roof, Gustabo H Referring Unavailable Jennifer, Marycarmen Referring Unavailable Jennifer, Marycarmen Primary Care Unavailable Jose Armando, Jose Attending Unavailable Jennifer, Marycarmen Primary Care Unavailable Horn ENVIRONMENTAL CONSERVATION OFFICER, Marni Attending Unavailable Horn ENVIRONMENTAL CONSERVATION OFFICER, Marni Referring Unavailable Jennifer, Marycarmen Primary Care Unavailable Maren Olivas Attending Unavailable Maren Olivas Referring Unavailable Jennifer, Marycarmen Primary Care Unavailable Horn ENVIRONMENTAL CONSERVATION OFFICER, Marni Attending Unavailable Jennifer, Marycarmen Primary Care Unavailable Jennifer, Marycarmen Attending Unavailable Jennifer, Marycarmen Primary Care Unavailable Roof, Gustabo H Attending Unavailable Roof, Gustabo H Referring Unavailable Jennifer, Marycarmen Referring Unavailable Jennifer, Marycarmen Primary Care Unavailable Jose ArmandoJose Attending Unavailable Jennifer, Marycarmen Primary Care Unavailable Jennifer, Marycarmen Referring Unavailable Roof, Gustabo H Attending Unavailable Jennifer, Marycarmen Attending Unavailable Jennifer, Marycarmen Primary Care Unavailable Jennifer, Marycarmen Referring Unavailable Jennifer, Marycarmen Primary Care Unavailable Justina ENVIRONMENTAL CONSERVATION OFFICER, Marni Attending Unavailable Jennifer, Marycarmen Referring Unavailable Jennifer, Marycarmen Primary Care Unavailable Roof, Gustabo H Attending Unavailable Jennifer, Marycarmen Primary Care Unavailable Roof, Gustabo H Referring Unavailable Roof, Gustabo H Attending Unavailable Jennifer, Marycarmen Primary Care Unavailable Justina ENVIRONMENTAL CONSERVATION OFFICER, Marni Attending Unavailable BasaliBrooks Attending Unavailable Basali, Brooks Referring Unavailable Jennifer, Marycarmen Primary Care Unavailable Basali, Brooks Attending Unavailable Basali, Brooks Referring Unavailable Jennifer, Marycarmen Primary Care Unavailable Roof, Gustabo H Consulting Unavailable Jennifer, Marycarmen Primary Care Unavailable Justina ENVIRONMENTAL CONSERVATION OFFICER, Marni Referring Unavailable Justina ENVIRONMENTAL CONSERVATION OFFICER, Marni Attending Unavailable Jennifer, Marycarmen Primary Care Unavailable Justina ENVIRONMENTAL CONSERVATION OFFICER, Marni Referring Unavailable Justina ENVIRONMENTAL CONSERVATION OFFICER, Marni Attending Unavailable Jennifer, Marycarmen Primary Care Unavailable Maren Olivas Attending Unavailable Maren Olivas Referring Unavailable JenniferMarycarmen shetty Attending Unavailable Jennifer, Marycarmen Referring Unavailable Jennifer, Marycarmen Primary Care Unavailable Jennifer, Marycarmen Primary Care Unavailable Roof, Gustabo H Referring Unavailable Roof, Gustabo H Attending Unavailable Jennifer, Marycarmen Attending Unavailable Jennifer, Marycarmen Primary Care Unavailable Jennifer, Marycarmen Primary Care Unavailable Justina ENVIRONMENTAL CONSERVATION OFFICER, Marni Attending Unavailable Justina ENVIRONMENTAL CONSERVATION OFFICER, Marni Referring Unavailable Medications Current Medications Medication Drug Class(es) Dates Sig (Normalized) Sig (Original) acetaminophen 325 mg oral tablet (20 sources) Start: 01-03-2020 End: 10-12-2023 Start: 01-03-2020 take 650 mg by mouth every six hours as needed Acetaminophen Active 650 MG PO EVERY 6 HOURS NEEDED January 02, 2020 11:00pm acetaminophen 325 mg / HYDRO codone bitartrate 5 mg oral tablet (20 sources) Opioid Agonist Start: 04-17-2024 End: 11-22-2024 Start: 04-17-2024 Hydrocodone-Ac etaminophen 5-325 mg tablet Active 1 {tbl} PO TWICE A DAY as needed 0 April 17, 2024 1:00am [id number] 200 actuat albuter ol 0.09 mg/actuat metered dose inhaler (14 sources) beta2-Adrenergic Agonist Start: 09-20-2024 Start: 09-20-2024 Albuterol Sulf ate 90 mcg/actuation HFA aerosol inhaler Active 2 NMA INHALATION EVERY 4-6 HOURS as needed for shortness of breath or wheezing 8.5 3 September 20, 2024 12:00am aspirin 81 mg delayed releas e oral tablet (20 sources) Platelet Aggregation Inhibitor, Nonsteroidal Anti-inflammatory Drug Start: 01-21-2017 cetirizine hydrochloride 10 mg oral tablet (20 sources) Histamine-1 Receptor Antagonist Start: 09-16-2021 cholecalciferol 0.025 mg ora l tablet (20 sources) Vitamin D Start: 09-16-2021 Start: 08-02-2018 End: 08-26-2018 Start: 01-21-2017 End: 01-19-2018 Start: 01-21-2017 End: 01-19-2018 take 2 capsules [...] capsule (20 sources) Serotonin Reuptake Inhibitor Start: 09-21-2018 End: 09-16-2021 Start: 09-21-2018 End: 09-16-2021 Start: 09-21-2018 End: 09-16-2021 take 1 capsule by mouth once daily Fluoxetine 40 mg capsule Discontinued 40 mg PO DAILY 90 90 0 September 21, 2018 12:00am September 16, 2021 10:49am DEPRESSION take 1 capsule by mo uth twice daily FLUoxetine (PROZAC) 40 MG capsule Take 40 mg by mouth 2 (two) times a day . 0 Active glimepiride 4 mg oral tablet (20 sources) Sulfonylurea Start: 03-20-2024 take 1 tablet by mouth once daily Glimepiride 4 mg tablet Active 4 mg PO daily March 20, 2024 1:00am Start: 09-16-2021 End: 10-12-2023 Start: 09-16-2021 End: 10-12-2023 take 1 tablet by mouth twice daily Glimepiride 4 mg tablet Discontinued 4 mg PO TWICE A DAY September 16, 2021 12:00am October 12, 2023 4:20pm DR Start: 12-20-2019 End: 09-16-2021 Start: 12-20-2019 End: 08-12-2020 take 1 tablet by mouth once daily Glimepiride 2 MG tablet Discontinued 2 mg PO DAILY December 20, 2019 12:00am August 12, 2020 3:32pm DM Start: 03-04-2016 End: 09-01-2018 24 hr isosorbide mononitrate 60 mg extended release oral tablet (20 sources) Nitrate Vasodilator Start: 06-14-2024 End: 10-25-2024 Start: 10-13-2022 End: 04-27-2024 Start: 10-13-2022 End: 10-25-2024 take 1 tablet by mouth once daily, then take 1 tablet by mouth every twenty-four hours Isosorbide Mononitrate 60 mg tablet extended release 24 hr Discontinued 60 mg PO DAILY 90 3 June 14, 2024 11:59am October 25, 2024 8:54am Start: 10-01-2022 End: 10-13-2022 Start: 11-21-2021 End: 09-01-2022 Start: 11-21-2021 End: 09-01-2022 take 1 tablet by mouth twice daily, then take 1 tablet by mouth every twenty-four hours Isosorbide Mononitrate 30 mg tablet extended release 24 hr Discontinued 30 mg PO TWICE A DAY 180 3 November 21, 2021 12:00am September 01, 2022 8:37am Start: 06-01-2019 End: 06-15-2019 Isosorbide Mononitrate 60 MG tablet Discontinued 90 mg PO WITH BREAKFAST June 01, 2019 9:26pm June 15, 2019 4:11pm heart/blood pressure 90 mg PO In the morning, 60 mg in the evening; Take 90 mg in the morning (1.5 tabs), and 60 mg (1 tab) in the evening Start: 04-06-2019 End: 06-15-2019 Isosorbide Mononitrate 60 mg tablet extended release 24 hr Discontinued 90 mg PO .COMPLEX 0 April 06, 2019 12:16pm June 01, 2019 9:26pm heart/blood pressure 90 mg PO In the morning, 60 mg in the evening; Take 90 mg in the morning (1.5 tabs), and 60 mg (1 tab) in the evening Start: 08-26-2018 End: 09-08-2018 take 1 tablet by mouth once daily in the morning, then take 1 tablet by mouth every twenty-four hours Isosorbide Mononitrate 60 mg tablet extended release 24 hr Discontinued 60 mg PO EVERY MORNING 1 0 August 26, 2018 1:40pm September 08, 2018 12:05pm heart/blood pressure Start: 04-12-2018 End: 08-03-2018 take 1 tablet by mouth once daily, then take 1 tablet by mouth every twenty-four hours Isosorbide Mononitrate 60 mg tablet extended release 24 hr Discontinued 60 mg PO DAILY 90 3 June 09, 2018 4:38pm August 03, 2018 11:42am heart/blood pressure Start: 12-02-2017 End: 09-01-2022 Start: 05-07-2016 End: 12-02-2017 losartan potassium 100 mg or al tablet (20 sources) Angiotensin 2 Receptor Kale Start: 10-01-2023 End: 06-14-2024 Start: 12-15-2022 End: 10-01-2023 Start: 12-15-2022 End: 09-16-2023 take 1 tablet by mouth once daily Losartan (Cozaar) 25 mg tablet Discontinued 25 mg PO DAILY 30 September 13, 2023 8:52am September 16, 2023 9:31am metOLazone 2.5 mg oral table t (20 sources) Thiazide-like Diuretic Start: 10-25-2024 Start: 03-27-2024 End: 04-17-2024 take 1 tablet by mouth every other day Metolazone 2.5 mg tablet Discontinued 2.5 mg PO every other day 90 3 March 27, 2024 3:36pm April 17, 2024 5:01pm Start: 03-20-2024 End: 04-17-2024 Start: 04-09-2021 End: 11-21-2021 Start: 04-09-2021 End: 11-21-2021 take 1 tablet by mouth every other day as needed for edema Metolazone 2.5 mg tablet Discontinued 2.5 mg PO every other day as needed for Edema September 16, 2021 10:48am November 21, 2021 10:55am 24 hr metoprolol succinate 2 5 mg extended release oral tablet (20 sources) beta-Adrenergic Kale Start: 10-25-2024 Start: 12-22-2022 End: 09-16-2023 Start: 12-15-2022 End: 12-22-2022 Start: 09-16-2021 End: 08-19-2022 Metoprolol Tartrate 25 mg ta blet Discontinued 12.5 mg PO TWICE A DAY September 16, 2021 10:41am August 19, 2022 10:32am Start: 09-16-2021 End: 08-19-2022 take 12.5 mg by mouth twice daily Metoprolol Tartrate Discontinued 12.5 MG PO TWICE A DAY September 16, 2021 9:41am August 19, 2022 9:32am Start: 03-24-2019 End: 06-04-2019 Start: 08-26-2018 End: 03-24-2019 Start: 08-26-2018 End: 03-24-2019 Metoprolol Tartrate 100 mg t ablet Discontinued 50 mg PO TWICE A DAY 180 3 October 21, 2018 10:05am March 24, 2019 11:59am Start: 08-26-2018 End: 10-21-2018 take 1 tablet [...] 12, 2018 3:41pm Start: 07-22-2017 End: 12-02-2017 Start: 01-21-2017 End: 12-15-2022 Start: 10-20-2016 take 1 tablet by sara [...] 2018 11:10am sleep Start: 08-26-2018 End: 09-21-2018 microencapsulated potassium chloride 20 meq extended release oral tablet (20 sources) Start: 12-30-2018 End: 08-01-2021 take 2 tablets [...] August 01, 2021 9:22am Start: 04-12-2018 End: 06-14-2024 Start: 04-12-2018 End: 06-14-2024 Start: 04-12-2018 End: 12-30-2018 take 1 tablet by mouth twice daily Potassium Chloride 20 mEq tablet,ER particles/crystals Discontinued 20 meq PO TWICE A DAY 180 3 June 09, 2018 4:39pm December 29, 2018 11:26am supplement Start: 07-22-2017 End: 01-19-2018 Start: 07-22-2017 End: 01-19-2018 take 3 tablets by mouth twice daily Potassium Chloride 20 mEq tablet extended release Discontinued 60 meq PO TWICE A DAY August 30, 2017 1:47pm January 19, 2018 3:32pm potassium Start: 07-22-2017 End: 08-30-2017 take 1 tablet by mouth every four hours Potassium Chloride 20 mEq tablet extended release Discontinued 20 meq PO Q4H July 22, 2017 12:00am August 30, 2017 1:49pm Start: 01-21-2017 End: 07-22-2017 Start: 05-07-2016 End: 05-07-2017 potassium chloride SA (K-DUR,KLOR-CON) 20 MEQ tablet Take 3 (three) tablets (60 mEq total) by mouth 2 (two) times a day. 540 tablet 3 03/28/2017 Active spironolactone 50 mg oral ta blet (20 sources) Aldosterone Antagonist Start: 10-12-2023 End: 06-14-2024 Start: 10-28-2018 End: 10-12-2023 Start: 01-21-2017 End: 10-28-2018 take 1 tablet by sara th once daily spironolactone (ALDACTONE) 50 MG tablet Take 50 mg by mouth daily. Active vitamin b12 1 mg oral capsul e (20 sources) Vitamin B12 Start: 06-01-2019 Start: 04-12-2018 End: 08-26-2018 Start: 04-12-2018 End: 08-26-2018 take 1000 ug by mouth once daily Cyanocobalamin (Vitamin B-12) Discontinued 1000 MCG PO DAILY@0800 April 12, 2018 12:00am August 26, 2018 12:43pm Start: 08-30-2017 End: 08-30-2017 Completed/Discontinued Medications Medication Drug Class(es) Dates Sig (Normalized) Sig (Original) amLODIPine 5 mg oral tablet (20 sources) Dihydropyridine Calcium Channel Kale Start: 09-24-2023 End: 10-25-2024 Start: 08-01-2021 End: 12-15-2022 Start: 08-01-2021 End: 12-15-2022 take 1 tablet by mouth twice daily Amlodipine 5 mg tablet Discontinued 5 mg PO TWICE A DAY 60 11 March 11, 2022 4:59pm December 15, 2022 1:46pm bp Start: 07-05-2019 End: 08-01-2021 Start: 07-05-2019 End: 08-01-2021 Start: 07-05-2019 End: 08-12-2020 take 1 tablet by mouth once daily Amlodipine 10 mg tablet Discontinued 10 mg PO DAILY December 05, 2019 11:47am August 12, 2020 3:29pm bp Start: 10-28-2018 End: 07-05-2019 Start: 05-07-2016 End: 12-17-2016 take 1 tablet [...] . 0 Active amoxicillin 875 mg / clavula alex 125 mg oral tablet (20 sources) Penicillin-class Antibacterial Start: 06-10-2021 End: 08-01-2021 atorvastatin 40 mg oral tabl et (20 sources) HMG-CoA Reductase Inhibitor Start: 08-26-2018 End: 06-14-2024 Start: 08-26-2018 End: 06-14-2024 take 1 tablet by mouth at bedtime Atorvastatin 40 mg tablet Discontinued 40 mg PO AT BEDTIME 90 3 November 02, 2023 2:50pm June 14, 2024 12:00pm CHOLESTEROL Start: 05-14-2017 End: 08-17-2017 Start: 05-06-2016 End: 05-06-2017 take 1 tablet by mouth once atorvastatin (LIPITOR) 80 MG tablet Take 1 tablet (80 mg total) by mouth nightly. 90 tablet 3 05/06/2016 05/06/2017 Active benzonatate 100 mg oral caps ule (20 sources) Non-narcotic Antitussive Start: 03-27-2022 End: 04-14-2022 Start: 03-27-2022 End: 04-14-2022 take 200 mg by mouth three times daily Benzonatate Discontinued 200 MG PO THREE TIMES A DAY March 27, 2022 12:00am April 14, 2022 10:28am carvedilol 6.25 mg oral tabl et (20 sources) alpha-Adrenergic Kale, beta-Adrenergic Kale Start: 09-16-2023 End: 10-25-2024 ciprofloxacin 500 mg oral tablet (20 sources) Quinolone Antimicrobial Start: 05-19-2021 End: 08-01-2021 cloNIDine hydrochloride 0.1 mg oral tablet (20 sources) Central alpha-2 Adrenergic Agonist Start: 12-04-2019 End: 12-05-2019 Start: 12-04-2019 End: 12-05-2019 take 1 tablet by mouth twice daily Clonidine Hcl 0.1 MG tablet Discontinued 0.1 mg PO TWICE A DAY December 04, 2019 12:00am December 05, 2019 11:33am Start: 01-21-2017 End: 07-22-2017 Start: 10-20-2016 End: 07-22-2017 take 1 tablet by mouth twice daily Clonidine Hcl 0.1 MG tablet Discontinued 0.1 mg PO TWICE A DAY January 21, 2017 12:00am July 22, 2017 11:04am clopidogrel 75 mg oral table t (20 sources) P2Y12 Platelet Inhibitor Start: 03-28-2017 End: 06-14-2024 Start: 05-07-2016 take 1 tablet by sara th once daily clopidogrel (PLAVIX) 75 mg tablet Take 1 tablet (75 mg total) by mouth daily. 90 tablet 3 05/07/2016 Active doxycycline monohydrate 100 mg oral capsule (20 sources) Tetracycline-class Drug Start: 01-20-2017 End: 07-22-2017 empagliflozin 25 mg oral tablet (20 sources) Sodium-Glucose Cotransporter 2 Inhibitor Start: 10-12-2023 End: 03-20-2024 Start: 12-15-2022 End: 10-12-2023 ergocalciferol 0.05 mg oral capsule (20 sources) Provitamin D2 Compound Start: 06-01-2019 End: 09-16-2021 ERGOCALCIFEROL, VITAMIN D2, (VITAMIN D2 ORAL) Take by mouth. Active Fluticasone Furoate (14 sources) Corticosteroid Start: 09-20-2024 End: 11-22-2024 Start: 09-20-2024 take 200 ug by inhal ation every twenty-four hours Fluticasone Furoate (Arnuity Ellipta) 200 mcg/actuation blister with device Active 1 NMA INHALATION Q24H 30 3 September 20, 2024 12:00am Start: 09-20-2024 take 200 ug by inhal ation every twenty-four hours Fluticasone Furoate (Arnuity Ellipta) 200 mcg/actuation blister with device Active 1 NMA INHALATION Q24H September 20, 2024 12:00am furosemide 40 mg oral tablet (20 sources) Loop Diuretic Start: 06-15-2019 End: 06-14-2024 Start: 06-04-2019 End: 06-15-2019 take 1 tablet by mouth once daily Furosemide 40 mg tablet Discontinued 40 mg PO DAILY 0 0 June 04, 2019 10:41am June 15, 2019 4:42pm diuretic Start: 04-06-2019 End: 06-04-2019 take 80 mg by mouth once daily Furosemide Discontinued 80 MG PO DAILY April 06, 2019 11:02am June 04, 2019 9:41am Start: 10-28-2018 End: 06-14-2024 Start: 10-28-2018 End: 12-29-2018 take 1 tablet by mouth once daily Furosemide 40 mg tablet Discontinued 40 mg PO DAILY October 28, 2018 2:29pm December 29, 2018 11:26am Start: 09-08-2018 End: 10-28-2018 Start: 09-08-2018 End: 06-14-2024 Start: 09-08-2018 End: 10-21-2018 take 1 tablet by mouth once daily Furosemide 40 mg tablet Discontinued 40 mg PO DAILY 90 3 September 08, 2018 12:00am October 21, 2018 10:06am Start: 12-02-2017 End: 09-08-2018 Start: 01-21-2017 End: 12-02-2017 Start: 05-07-2016 take 1 tablet by sara th once daily furosemide (LASIX) 80 MG tablet Take 1 tablet (80 mg total) by mouth daily. 90 tablet 3 05/07/2016 Active gabapentin 100 mg oral capsule (20 sources) Anti-epileptic Agent Start: 03-20-2024 End: 10-25-2024 12 hr guaiFENesin 600 mg extended release [...] sources) Insulin Analog Start: 12-22-2019 End: 01-03-2020 Start: 12-22-2019 End: 01-03-2020 Insulin Lispro Discontinued [...] 01, 2019 1:00am June 04, 2019 10:41am magnesium oxide 400 mg oral tablet (20 sources) Start: 06-15-2019 End: 12-05-2019 take 1 tablet by mouth three times daily Magnesium Oxide 400 mg (241.3 mg magnesium) tablet Discontinued 400 mg PO THREE TIMES A DAY June 15, 2019 4:09pm December 05, 2019 11:33am Start: 06-04-2019 End: 08-01-2021 Start: 06-04-2019 End: 08-01-2021 Start: 06-04-2019 End: 06-15-2019 take 1 tablet by mouth twice daily at mealtime Magnesium Oxide 400 MG tablet Discontinued 400 mg PO TWICE DAILY WITH MEALS 0 June 04, 2019 1:00am June 15, 2019 4:11pm Start: 04-12-2018 End: 08-26-2018 Start: 04-12-2018 End: 08-26-2018 take 2 tablets by mouth once daily Magnesium Oxide 400 MG tablet Discontinued 800 mg PO DAILY April 12, 2018 1:00am August 26, 2018 1:43pm supplement meclizine hydrochloride 25 m g oral tablet (20 sources) Antiemetic Start: 10-29-2023 End: 11-22-2024 Start: 09-21-2022 End: 10-12-2023 Start: 09-21-2022 End: 10-12-2023 take 1 tablet by mouth three times daily as needed Meclizine 25 mg Tablet Discontinued 25 mg PO 3 TIMES DAILY NEEDED as needed for vertiginous symptoms 0 0 September 21, 2022 12:00am October 12, 2023 4:21pm melatonin 3 mg oral tablet (20 sources) Start: 09-21-2022 End: 12-15-2022 Start: 09-21-2022 End: 12-15-2022 take 1 tablet by mouth at bedtime as needed Melatonin 3 mg Tablet Discontinued 3 mg PO AT BEDTIME NEEDED as needed for Insomnia 0 September 21, 2022 12:00am December 15, 2022 1:12pm metFORMIN hydrochloride 500 mg oral tablet (20 sources) Biguanide Start: 11-21-2021 End: 10-25-2024 Start: 11-21-2021 End: 10-25-2024 metroNIDAZOLE 500 mg oral ta blet (20 sources) Nitroimidazole Antimicrobial Start: 05-19-2021 End: 08-01-2021 nitroglycerin 0.4 mg subling ual tablet (20 sources) Nitrate Vasodilator Start: 01-21-2017 End: 01-19-2018 Start: 01-21-2017 End: 01-19-2018 Nitroglycerin 0.3 MG tablet, sublingual Discontinued 0.3 mg SL DIRECTED as needed for Cardiac/Chest Pain January 21, 2017 12:00am January 19, 2018 3:25pm Start: 01-21-2017 End: 01-19-2018 Nitroglycerin Discontinued 0 .3 MG SL DIRECTED January 20, 2017 11:00pm January 19, 2018 2:25pm Start: 12-23-2015 End: 06-14-2024 Nut.Tx.Gluc Intol,Lf,Soy-Fiber (Glucerna 1.2 Ashwin) 0.06-1.2 gram-kcal/mL [...] September 21, 2022 12:00am ondansetron 4 mg disintegrat ing oral tablet (20 sources) Serotonin-3 Receptor Antagonist Start: 09-03-2017 End: 09-07-2017 pantoprazole 40 mg delayed release oral tablet (20 sources) Proton Pump Inhibitor Start: 12-20-2019 End: 06-14-2024 Start: 01-21-2017 End: 08-26-2018 Start: 01-21-2017 End: 08-26-2018 take 1 tablet [...] tablet 3 08/07/2016 Active perflutren lipid microspheres (Pharmacy Development) 0.143 mg/mL solution 0-10 mL of mixture (1 source) Start: 10-15-2020 End: 10-15-2020 perflutren lipid microspheres (DEFINArtBinder) 0.143 mg/mL solution 0-10 mL of mixture pravastatin sodium 20 mg oral tablet (20 sources) HMG-CoA Reductase Inhibitor Start: 04-12-2018 End: 08-26-2018 Start: 04-12-2018 End: 08-26-2018 take 1 tablet by mouth at bedtime Pravastatin 20 mg tablet Discontinued 20 mg PO AT BEDTIME 90 3 June 09, 2018 4:39pm August 26, 2018 1:38pm cholesterol Start: 08-17-2017 End: 11-30-2017 Start: 08-17-2017 End: 11-30-2017 take 1 tablet by mouth at bedtime Pravastatin 20 mg tablet Discontinued 20 mg PO AT BEDTIME 90 3 August 17, 2017 12:00am November 30, 2017 7:41pm predniSONE 20 mg oral tablet (13 sources) Start: 09-20-2024 End: 10-25-2024 pregabalin 50 mg oral capsul e (20 sources) Start: 08-27-2017 End: 09-07-2017 12 hr ranolazine 1000 mg ext ended release oral tablet (20 sources) Anti-anginal Start: 10-29-2023 End: 11-12-2023 Start: 10-01-2023 End: 10-29-2023 Semaglutide (19 sources) Start: 04-17-2024 End: 05-15-2024 Start: 04-17-2024 End: 05-15-2024 Semaglutide (Ozempic) 0.25 m g or 0.5 mg (2 mg/3 mL) pen injector Discontinued 0.25 mg SC EVERY WEEK 1April 17, 2024 1:00am May 14, 2024 1:00am May 15, 2024 1:10am for 4 weeks Start: 04-17-2024 End: 05-15-2024 Semaglutide (Ozempic) 0.25 m g or 0.5 mg (2 mg/3 mL) pen injector Discontinued 0.25 mg SC EVERY WEEK April 17, 2024 1:00am May 14, 2024 1:00am May 15, 2024 1:10am for 4 weeks 24 hr venlafaxine 150 mg extended release oral capsule (20 sources) Serotonin and Norepinephrine Reuptake Inhibitor Start: 01-21-2017 End: 08-30-2017 Start: 03-26-2016 End: 09-21-2018 (12 sources) Start: 04-27-2024 End: 06-14-2024 Start: 03-20-2024 Start: 09-21-2022 End: 10-12-2023 Start: 08-01-2021 End: 08-19-2022 Start: 06-04-2019 End: 06-04-2019 Start: 06-01-2019 End: 06-04-2019 Problems Active Problems Problem Classification Problem Date Documented Date Episodic/Chronic Asthma (12 sources) Asthma; Translations: [Unspecified asthma, uncomplicated] 10-31-2024 Chronic Cardiac dysrhythmias (20 sources) Palpitations; Translations: [Palpitations] Onset: 10-25-2024 Episodic 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 (20 sources) 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 stage 3; Translations: [Stage 3 chronic kidney disease] 12-09-2020 Chronic 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 (2 sources) 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; Translations: [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, stage 3b] Onset: 07-13-2024 Chronic obstructive pulmonary disease and bronchiectasis (20 sources) Chronic obstructive lung disease; Translations: [Chronic obstructive pulmonary disease, unspecified] 12-09-2020 Chronic Comment on above: FEV1 is 76% Conditions associated with dizziness or vertigo (20 sources) Dizziness; Translations: [Dizziness and giddiness] Episodic Congestive heart failure; nonhypertensive (20 sources) Congestive heart failure; Translations: [Heart failure, unspecified] Onset: 11-22-2024 Chronic Coronary atherosclerosis and other heart disease (20 sources) Coronary arteriosclerosis in [place] artery; Translations: [Preinfarction syndrome] Onset: 01-05-2015 10-15-2016 [...] a re-attempt at angioplasty but was unsuccessful Coronary atherosclerosis and other heart disease (20 [...] used.Successful PTCA/KENDALL Prox RCA ISR using Resolute [place] 3.5x22 mm, post-dilated using 3.[address] 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 Procedure aborted. 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-Dm and Stent-Mid RCA x 2 Multi Link Mini Vision Rx Stent 4.0 x 28 mm 01/21/2006 Deficiency and other anemia (1 source) Anemia, unspecified; Translations: [Anemia, unspecified] Onset: 10-05-2024 Episodic Diabetes mellitus without complication (20 sources) Diabetes mellitus; Translations: [Type 2 diabetes mellitus without complications] Onset: 11-22-2024 01-05-2015 Chronic Disorders of lipid metabolism (20 sources) Hyperlipidemia; Translations: [Hyperlipidemia, unspecified] Onset: 11-22-2024 06-17-2015 Chronic Diverticulosis and diverticulitis (20 sources) [...] injuries and conditions due to external causes (19 sources) Open wound; Translations: [Other injury of unspecified body region, initial encounter] 12-14-2022 Episodic Other lower respiratory disease (20 sources) Dyspnea; Translations: [Shortness of breath] Episodic Other lower respiratory disease (20 sources) Dyspnea on exertion; Translations: [Dyspnea, unspecified] Episodic Other lower respiratory disease (20 sources) Cough; Translations: [Cough] 01-26-2021 Episodic Other lower respiratory disease (4 sources) Dyspnea, unspecified; Translations: [Other respiratory abnormalities] Onset: 10-25-2024 Episodic Other lower respiratory disease (14 sources) Wheezing; Translations: [Wheezing] 09-20-2024 Episodic Other lower respiratory disease (2 sources) Shortness of breath; Translations: [Shortness of breath] Onset: 11-22-2024 Episodic Other lower respiratory disease (1 source) Wheezing; Translations: [Wheezing] Onset: 10-31-2024 Episodic Other non-traumatic joint disorders (1 source) Pain in left shoulder; Translations: [Pain in left shoulder] Onset: 11-24-2024 Episodic Other nutritional; endocrine; and metabolic disorders [...] (adult)(pediatric)] Onset: 10-19-2024 Chronic Residual codes; unclassified (12 sources) Central sleep apnea syndrome; 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] 10-31-2024 Chronic Residual codes; unclassified (1 source) Primary central sleep apnea; 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] Onset: 11-17-2024 Chronic Residual codes; unclassified (20 sources) Bilateral [...] Other Problems Problem Classification Problem Date Documented Date Episodic/Chronic Other lower respiratory disease (8 sources) Other [...] Range Facility Absolute lymphocyte countOrd ered By: Gustabo Pérez on 11-22-2024 Lymphocytes Auto (Unsp spec) [#/Vol] 1.37 10*3/uL 0.83-4.51 [facility] Anion gap in Serum or Plasma Ordered By: Gustabo Pérez on 11-22-2024 Anion gap [Moles/Vol] 15 mmol/L 09-14 [facility] Automated lymphocyte count a s percentage of total leukocytesOrdered By: Gustabo Pérez on 11-22-2024 Lymphocytes/100 WBC Auto (Unsp spec) 16.1 % Low [facility] BUN/creatinine ratioOrdered By: Gustabo Pérez on 11-22-2024 Urea nitrogen/Creatinine [Mass ratio] 15.6 mg/mg 02-19 [facility] Basic Metabolic Profile (BMP )on 11-22-2024 BUN/CRE 15.6 RATIO Normal 02-19 [facility] Comment on above: Performed By: #### L 500.2500, L503.7505, L100.0100 ####[facility] [address] [place], [address] Calcium [Mass/Vol] 9.1 mg/dL Normal 7.6-11.0 [facility] Comment on above: Performed By: #### L 500.2500, L503.7505, L100.0100 ####[facility] [address] [place], [address] Chloride [Moles/Vol] 102 mmol/L Normal 98-108 [facility] Comment on above: Performed By: #### L 500.2500, L503.7505, L100.0100 ####[facility] [address] [place], [address] CO2 [Moles/Vol] 21.6 mmol/L Normal 21.0-32.0 [facility] Comment on above: Performed By: #### L 500.2500, L503.7505, L100.0100 ####[facility] [address] [place], [address] Creatinine [Mass/Vol] 2.51 mg/dL High 0.70-1.20 [facility] Comment on above: Performed By: #### L 500.2500, L503.7505, L100.0100 ####[facility] [address] [place], [address] GAP 15 Normal 5-15 [facility] Comment on above: Performed By: #### L 500.2500, L503.7505, L100.0100 ####[facility] [address] [place], [address] GFR/1.73 sq M.predicted among non-blacks MDRD (S/P/Bld) [Vol rate/Area] 25 mL/min/{1.73_m2} Low >60 [facility] Comment on above: Result Comment: mL/m in/1.73m2 CKD-EPI Creatinine Equation (2020) Performed By: #### L 500.2500, L503.7505, L100.0100 ####[facility] [address] [place], [address] Glucose [Mass/Vol] 262 mg/dL High 70-99 [facility] Comment on above: Performed By: #### L 500.2500, L503.7505, L100.0100 ####[facility] [address] [place], [address] Potassium [Moles/Vol] 4.8 mmol/L Normal 3.3-5.1 [facility] Comment on above: Performed By: #### L 500.2500, L503.7505, L100.0100 ####[facility] [address] [place], [address] Sodium [Moles/Vol] 139 mmol/L Normal 133-145 [facility] Comment on above: Performed By: #### L 500.2500, L503.7505, L100.0100 ####[facility] [address] [place], [address] Urea nitrogen [Mass/Vol] 39 mg/dL High 4-19 [facility] Comment on above: Performed By: #### L 500.2500, L503.7505, L100.0100 ####[facility] [address] [place], [address] Basophil percentageOrdered B y: [facility] on 11-22-2024 Basophils/100 WBC (Bld) 0.4 % 0-1 [facility] CBC W/Diff, Automatedon 11-01 Absolute Lymph 1.37 X10 3/uL Normal 0.83-4.51 [facility] Comment on above: Performed By: #### L 500.2500, L503.7505, L100.0100 ####[facility] [address] [place], [address] Absolute Neut 6.2 X10 3/uL Normal 2.0-7.7 [facility] Comment on above: Performed By: #### L 500.2500, L503.7505, L100.0100 ####[facility] [address] [place], [address] Basophils/100 WBC (Bld) 0.4 % Normal 0-1 [facility] Comment on above: Performed By: #### L 500.2500, L503.7505, L100.0100 ####[facility] [address] [place], [address] Eosinophils/100 WBC (Bld) 1.5 % Normal 0-5 [facility] Comment on above: Performed By: #### L 500.2500, L503.7505, L100.0100 ####[facility] [address] [place], [address] Erythrocyte distribution width (RBC) [Ratio] 13.8 % Normal 11.6-14.6 [facility] Comment on above: Performed By: #### L 500.2500, L503.7505, L100.0100 ####[facility] [address] [place], [address] Hematocrit (Bld) [Volume fraction] 36.5 % Low 40-54 [facility] Comment on above: Performed By: #### L 500.2500, L503.7505, L100.0100 ####[facility] [address] [place], [address] Hemoglobin (Bld) [Mass/Vol] 11.8 g/dL Low 13.0-16.5 [facility] Comment on above: Performed By: #### L 500.2500, L503.7505, L100.0100 ####[facility] [address] [place], [address] IG% 0.500 Normal 0.0-0.9 [facility] Comment on above: Result Comment: IG% - Immature Granulocytes (promyelocytes, myelocytes and metamyelocytes) > 1% indicates that a LEFT SHIFT is Present. Performed By: #### L 500.2500, L503.7505, L100.0100 ####[facility] [address] [place], [address] Lymphocytes/100 WBC (Bld) 16.1 % Low 19-41 [facility] Comment on above: Performed By: #### L 500.2500, L503.7505, L100.0100 ####[facility] [address] [place], [address] MCH (RBC) [Entitic mass] 29.6 pg Normal 27.0-32.0 [facility] Comment on above: Performed By: #### L 500.2500, L503.7505, L100.0100 ####[facility] [address] [place], [address] MCHC (RBC) [Mass/Vol] 32.3 g/dL Normal 32-36 [facility] Comment on above: Performed By: #### L 500.2500, L503.7505, L100.0100 ####[facility] [address] [place], [address] MCV (RBC) [Entitic vol] 91.7 fL Normal 80-94 [facility] Comment on above: Performed By: #### L 500.2500, L503.7505, L100.0100 ####[facility] [address] [place], [address] Monocytes/100 WBC (Bld) 9.0 % Normal 0-10 [facility] Comment on above: Performed By: #### L 500.2500, L503.7505, L100.0100 ####[facility] [address] [place], [address] Neutrophils/100 WBC (Bld) 72.5 % High 47-70 [facility] Comment on above: Performed By: #### L 500.2500, L503.7505, L100.0100 ####[facility] [address] [place], [address] Nucleated RBC (Bld) [#/Vol] 0 10*3/uL Normal 0-5 [facility] Comment on above: Performed By: #### L 500.2500, L503.7505, L100.0100 ####[facility] [address] [place], [address] Platelet mean volume (Bld) [Entitic vol] 13.0 fL High 6.2-12.0 [facility] Comment on above: Performed By: #### L 500.2500, L503.7505, L100.0100 ####[facility] [address] [place], [address] Platelets (Bld) [#/Vol] 148 10*3/uL Low 150-450 [facility] Comment on above: Performed By: #### L 500.2500, L503.7505, L100.0100 ####[facility] [address] [place], [address] RBC (Bld) [#/Vol] 3.98 10*6/uL Low 4.6-6.2 [facility] Comment on above: Performed By: #### L 500.2500, L503.7505, L100.0100 ####[facility] [address] [place], [address] RDW SD 47.0 fl High 35.1-43.9 [facility] Comment on above: Performed By: #### L 500.2500, L503.7505, L100.0100 ####[facility] [address] [place], [address] WBC (Bld) [#/Vol] 8.5 10*3/uL Normal 4.4-11.0 [facility] Comment on above: Performed By: #### L 500.2500, L503.7505, L100.0100 ####[facility] [address] [place], [address] Carbon dioxide, total [Moles /volume] in Central venous bloodOrdered By: Gustabo Pérez on 11-22-2024 CO2 [Moles/Vol] 21.6 mmol/L 21.0-32.0 [facility] Cardiology Visit Reporton Cardiology Visit Report [facility] [address] [place] [address] OFFICE VISIT Date of Service: 11/22/24 MR#: [id number] Acct: [id number] Name: ERIBERTO RICO Rep #: [id number] : 1945 Provider: YRN arvizu Age/Sex: 79/M Location: [facility] Status: Signed HPI HPI History of Present Illness Details: This gentleman with history of coronary artery disease status post percutaneous intervention to the RCA for in-stent restenosis in 2022, hypertension, dyslipidemia, diabetes mellitus and obesity is here for follow-up visit. He also has history of COPD. He acknowledges weekly, sharp chest discomfort. He describes this as well as dull and tight. This occurs randomly. This is located midsternal left side of his chest. This last for minutes. This improves with nitroglycerin. He denies palpitations. He acknowledges bilateral lower extremity edema. He acknowledges shortness of breath with activity. He denies shortness of breath at rest, cough, orthopnea, or PND. He acknowledges occasional dizziness. He denies lightheadedness, near- syncope, or syncope. He acknowledges fatigue and weakness. Intake Vital Signs 10/25/24 08:10 11/22/24 10:41 Height 5 ft 9 in 5 ft 9 in Weight: 243 lb BMI 35.9 BP 107/62 Blood Pressure Location Lt brachial Position Sitting Respiration 20 H Pulse 66 Pulse Source NIBP Intake Visit Reasons: 3-4 WK FU Block Stacker Required: No Is patient in pain?: No Allergies No Known Allergies Allergy (Verified 11/22/24 11:12) Medications ???Medication ???Instructions ???Recorded ???Confirmed ???Type aspirin 81 mg tablet,delayed 81 mg PO DAILY@0800 health 7 11/22/24 History release maintenance mirtazapine 15 mg tablet (Remeron) 15 mg PO QHS sleep 09/21/1811/01 History cyanocobalamin (vitamin B-12) 1,000 mcg PO DAILY vitamin ##0 11/22/24 History 1,000 mcg capsule magnesium oxide 400 mg (241.3 mg 800 mg PO DAILY SUPPLEMENT 2 11/22/24 History magnesium) tablet cetirizine 10 mg tablet 10 mg PO DAILY PRN Allergic 11/22/24 History Reaction cholecalciferol (vitamin D3) [address] 09/16/21 History mcg (1,000 unit) tablet fluoxetine 40 mg capsule 80 mg PO DAILY DEPRESSION 90 days 09/16/21 11/22/24 History #180 caps acetaminophen 325 mg tablet 650 mg PO Q6H PRN Pain 1-02/0911/22/24 History glimepiride 4 mg tablet 4 mg PO QDAY 03/20/24 11/22/24 His tory atorvastatin 40 mg tablet 40 mg PO QHS CHOLESTEROL #90 tabs 06/14/24 11/22/24 Rx clopidogrel 75 mg tablet [address] #90 tabs 5 11/22/24 Rx furosemide 40 mg tablet 40 mg PO BID #180 tabs 06/14/24 Rx losartan 100 mg tablet 100 mg PO DAILY #90 tabs 06/14/24 11/22/24 Rx nitroglycerin 0.4 mg sublingual 0.4 mg sublingual Q5-15M PRN CHEST 06/14/24 11/22/24 Rx tablet PAIN #25 tabs pantoprazole 40 mg tablet,delayed 40 mg PO DAILY GERD #90 tabs 06/0311/22/24 Rx release potassium chloride 20 mEq 60 meq (3 x 20 mEq) PO BID 5 11/22/24 Rx tablet,extended release(part/cryst) supplement #180 tabs spironolactone 50 mg tablet 50 mg PO DAILY #90 tabs 06/14/24 0 11/22/24 Rx albuterol sulfate 90 mcg/actuation 2 inh inhalation Q4-6H PRN 09/2011/22/24 Rx aerosol inhaler shortness of breath or wheezing #8.5 grams amlodipine 5 mg tablet 5 mg PO QPM 10/25/24 11/22/24 Hist ory isosorbide mononitrate 60 mg 60 mg PO BID #90 TABLETS 10/25/24 11/22/24 Rx tablet,extended release 24 hr metformin 500 mg tablet 500 mg PO QDAY 10/25/24 11/22/24 H istory metolazone 2.5 mg tablet 2.5 mg PO QDAY 10/25/24 11/22/24 H istory metoprolol succinate 25 mg 25 mg PO DAILY #30 tabs 10/25/24 0 11/22/24 Rx tablet,extended release 24 hr hydrocodone-acetamino phen 5-325mg 1 tab PO TID PRN 11/22/24 5 History 5mg-325mg Ejection fraction %: 60 Have you fallen in the past year?: [...] artery disease) 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.9) COPD (chronic obstruc (more content not included)... Normal [facility] Chest PA and Lateralon 11-22 Chest PA and Lateral [facility] [address] [place], [place] [address] Chest PA and Lateral MR#: [id number] Acct: [id number] Name: ERIBERTO RICO Rep #: [id number] : 1945 M 79 From: Jess Hooker PCP: Dr. Marycarmen Rodriguez, DO Status: REG CLI Study: Chest PA and Lateral Date of Exam: 11/22/24 Exam# [id number] Ordering Dr: Gustabo Pérez ENVIRONMENTAL CONSERVATION OFFICER ENVIRONMENTAL CONSERVATION OFFICER-C PROCEDURE: CHEST PA AND LATERAL 11/22/2024 REASON FOR EXAM: PRE-OPERATIVE: [facility] TECHNIQUE: CHEST PA AND LATERAL COMPARISON: 10/12/2023 FINDINGS: Left lower lobe/retrocardiac opacity not excluded. No pleural effusion or pneumothorax. Cardiac silhouette is within normal limits. Calcified aortic arch. Cervical ACDF. No acute fractures. RAD/Chest PA and Lateral IMPRESSION: Left lower lobe/retrocardiac opacity not excluded. Reading Location: [facility] CC: YRN Pérez; Dr. Marycarmen Rodriguez DO Comb Fixer: Signed Normal [facility] Chloride assayOrdered By: Lydia Pérez on 11-22-2024 Chloride [Moles/Vol] 102 mmol/L 98-108 [facility] Eosinophil percentageOrdered By: Gustabo Pérez on 11-22-2024 Eosinophils/100 WBC (Bld) 1.5 % 0-5 [facility] Erythrocyte distribution wid th ratioOrdered By: Gustabo Pérez on 11-22-2024 Erythrocyte distribution width (RBC) [Ratio] 13.8 % 11.6-14.6 [facility] Erythrocyte distribution wid th standard deviationOrdered By: Gustabo Pérez on 11-22-2024 Erythrocyte distribution width (RBC) [Ratio] 47.0 fl High 35.1-43.9 [facility] Glomerular filtration rate ( GFR) estimation/1.73 sq m using serum, plasma, or whole bOrdered By: Gustabo Pérez on 11-22-2024 GFR/1.73 sq M.predicted among non-blacks MDRD (S/P/Bld) [Vol rate/Area] 25 mL/min/{1.73_m2} Low >60 [facility] Hematocrit Auto (Bld) [Volum e fraction]Ordered By: Gustabo Pérez on 11-22-2024 Hematocrit (Bld) [Volume fraction] 36.5 % Low 40-54 [facility] Hemoglobin measurementOrdere d By: Gustabo Pérez on 11-22-2024 Hemoglobin (Bld) [Mass/Vol] 11.8 g/dL Low 13.0-16.5 [facility] Immature granulocytes/100 WB C Auto (Bld)Ordered By: Gustabo Pérez on 11-22-2024 Immature granulocytes/100 WBC (Bld) 0.500 % 0.0-0.9 [facility] L503.7505on 11-22-2024 Natriuretic peptide B (Bld) [Mass/Vol] 188 pg/mL Normal <=1800 [facility] Comment on above: Result Comment: Hear t Failure Unlikely: < 300 pg/mL Heart Failure Likely < 50 Years: > 450 pg/mL 50-75 Years: > 900 pg/mL >75 Years: > 1800 pg/mL Performed By: #### L 500.2500, L503.7505, L100.0100 ####[facility] [address] [place], [address] MCV (mean corpuscular volume ) determinationOrdered By: Gustabo Pérez on 11-22-2024 MCV (RBC) [Entitic vol] 91.7 fL 80-94 [facility] Mean corpuscular hemoglobin (MCH) determinationOrdered By: Gustabo Pérez on 11-22-2024 MCH (RBC) [Entitic mass] 29.6 pg 27.0-32.0 [facility] Monocyte percentageOrdered B y: Gustabo Pérez on 11-22-2024 Monocytes/100 WBC (Bld) 9.0 % 0-10 [facility] Natriuretic peptide.B prohor efrem N-Terminal [Mass/volume] in Serum or PlasmaOrdered By: Gustabo Pérez on 11-22-2024 Natriuretic peptide.B prohormone N-Terminal [Mass/Vol] 188 pg/mL <1800 [facility] Neutrophil percentageOrdered By: Gustabo Pérez on 11-22-2024 Neutrophils/100 WBC (Bld) 72.5 % High 47-70 [facility] Platelet countOrdered By: Lydia Pérez on 11-22-2024 Platelets (Bld) [#/Vol] 148 10*3/uL Low 150-450 [facility] Potassium measurement (mass/ volume)Ordered By: Gustabo Pérez on 11-22-2024 Potassium (Unsp spec) [Mass/Vol] 4.8 mmol/L 3.3-5.1 [facility] RBC Auto (Bld) [#/Vol]Ordere d By: Gustabo Pérez on 11-22-2024 RBC (Bld) [#/Vol] 3.98 10*6/uL Low 4.6-6.2 [facility] Serum creatinine measurement (mass/volume)Ordered By: Gustabo Pérez on 11-22-2024 Creatinine [Mass/Vol] 2.51 mg/dL High 0.70-1.20 [facility] Serum glucose measurement (m ass/volume)Ordered By: Gustabo Pérez on 11-22-2024 Glucose [Mass/Vol] 262 mg/dL High 70-99 [facility] Serum or plasma calcium francine urement (mass/volume)Ordered By: Gustabo Pérez on 11-22-2024 Calcium [Mass/Vol] 9.1 mg/dL 7.6-11.0 [facility] Serum or plasma urea nitroge n measurement (mass/volume)Ordered By: Gustabo Pérez on 11-22-2024 Urea nitrogen [Mass/Vol] 39 mg/dL High 4-19 [facility] Sodium levelOrdered By: Gustabo Pérez on 11-22-2024 Sodium [Moles/Vol] 139 mmol/L 133-145 [facility] White blood cell (WBC) count Ordered By: Gustabo Pérez on 11-22-2024 WBC (Bld) [#/Vol] 8.5 10*3/uL 4.4-11.0 [facility] Shoulder min 2 Viewson 11-20 Shoulder min 2 Views [facility] Imaging Services [address] [place] [address] Shoulder min 2 Views MR#: [id number] Acct: [id number] Name: ERIBERTO RICO Rep #: [id number] : 1945 M 79 From: Marycarmen Mccallum MD PCP: Dr. Marycarmen Rodriguez DO Status: REG CLI Study: Shoulder min 2 Views Date of Exam: 11/20/24 Exam# [id number] Ordering Dr: Brooks Carpenter MD EXAM: XR Left Shoulder Complete, 2 or More Views CLINICAL INDICATION: LEFT SHOULDER PAIN TECHNIQUE: Two or more views of the left shoulder. COMPARISON: No relevant prior studies available. FINDINGS: BONES/JOINTS: Moderate degenerative changes of the acromioclavicular glenohumeral joints. Anchors. No acute fracture. No dislocation. SOFT TISSUES: Unremarkable. RAD/Shoulder min 2 Views IMPRESSION: Degenerative changes as above. Reading Location: [id number] CC: Dr. Brooks Carpenter MD; Dr. Marycarmen Rodriguez DO Comb Fixer: Signed Normal [facility] Cardiovascular stress test r eportOrdered By: Jose Hay on 11-13-2024 Study report [facility] Cardiovascular Services [address] [place] [address] MR#: [id number] Acct: [id number] Name: ERIBERTO RICO Rep #: [id number] : 1945 79 From: Jose Hay MD Primary Care: Dr. Marycarmen Rodriguez DO Statu s: REG CLI Referring Dr: Gustabo Pérez ENVIRONMENTAL CONSERVATION OFFICER ENVIRONMENTAL CONSERVATION OFFICER-C Sex: M C Stress Test Report Date: 11/10/2024 Procedure: Pharmacologic stress nuclear imaging study Indications: Chest pain Consent: Per the patient Procedure: The patient underwent pharmacologic (Regadenoson 0.4mg ) evaluation with a peak heart rate of 114 beats per minute (80%predicted maximal heart rate) and a peak blood pressure of 148/82 mmHg. The baseline ECG demonstrated sinus rhythm. The peak pharmacologic ECG did not show any ischemic changes. There were no cardiac dysrhythmias pretest, during pharmacologic infusion, or recovery. Patient complained of shortness of breath with Lexiscan administration. The patient was injected with 14.6 millicuries of technetium 99m Cardiolite and subsequently rest SPECT Cardiolite nuclear imaging was obtained in the horizontal long, vertical long, and short axis views. The patient underwent pharmacologic (Regadenoson) evaluation. The patient was injected with 44.7 millicuries of technetium 99m Cardiolite and subsequently stress SPECT Cardiolite nuclear imaging was obtained in the horizontal long, vertical long, and short axis views. A gated Cardiolite study at peak stress was obtained. The examination was stopped secondary to completion of protocol. Rest and stress SPECT Cardiolite nuclear imaging status post realignment, normalization, and attenuation correction demonstrate a fixed perfusion defect at rest, compatible with previous inferior apical infarct. Mild sriram-infarct ischemia is noted. There is end systolic thickening and brightening. The gatedCardiolite study demonstrates myocardial thickening and inward wall motion. Thereported LVEF is 62%. Impression: 1. Pharmacologic (Regadenoson) evaluation 2. Peak pharmacologic ECG with no diagnostic ischemic changes. 3. There were no cardiac dysrhythmias pretest, during pharmacologic infusion, or recovery. 5. 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 6. The gated Cardiolite study reports an LVEF of 62%. This note was generated with Medityplus dictation software. It may contain incorrectwords, spelling, and punctuation that were not noted in checking the note beforesigning. 11/13/241538 Date _ Jose Hay MD CC: ENVIRONMENTAL CONSERVATION OFFICER-C Gustabo Pérez; Dr. Marycarmen Rodriguez, DO ~ Date Dictated: 11/13/241536 Date Transcribed: 11/13/241536 Comb Fixer: PAULETTE Alvarez [facility] Work Phone: Stress Reporton 11-13-2024 Stress Report [facility] Cardiovascular Services [address] [place] [address] MR#: [id number] Acct: [id number] Name: ERIBERTO RICO Rep #: [id number] : 1945 79 From: Jose Hay MD Primary Care: Dr. Marycarmen Rodriguez, Status: REG CLI Referring Dr: Gustabo Pérez NP ENVIRONMENTAL CONSERVATION OFFICER-C Sex: M C Stress Test Report Date: 11/10/2024 Procedure: Pharmacologic stress nuclear imaging study Indications: Chest pain Consent: Per the patient Procedure: The patient underwent pharmacologic (Regadenoson 0.4mg ) evaluation with a peak heart rate of 114 beats per minute (80%predicted maximal heart rate) and a peak blood pressure of 148/82 mmHg. The baseline ECG demonstrated sinus rhythm. The peak pharmacologic ECG did not show any ischemic changes. There were no cardiac dysrhythmias pretest, during pharmacologic infusion, or recovery. Patient complained of shortness of breath with Lexiscan administration. The patient was injected with 14.6 millicuries of technetium 99m Cardiolite and subsequently rest SPECT Cardiolite nuclear imaging was obtained in the horizontal long, vertical long, and short axis views. The patient underwent pharmacologic (Regadenoson) evaluation. The patient was injected with 44.7 millicuries of technetium 99m Cardiolite and subsequently stress SPECT Cardiolite nuclear imaging was obtained in the horizontal long, vertical long, and short axis views. A gated Cardiolite study at peak stress was obtained. The examination was stopped secondary to completion of protocol. Rest and stress SPECT Cardiolite nuclear imaging status post realignment, normalization, and attenuation correction demonstrate a fixed perfusion defect at rest, compatible with previous inferior apical infarct. Mild sriram-infarct ischemia is noted. There is end systolic thickening and brightening. The gated Cardiolite study demonstrates myocardial thickening and inward wall motion. The reported LVEF is 62%. Impression: 1. Pharmacologic (Regadenoson) evaluation 2. Peak pharmacologic ECG with no diagnostic ischemic changes. 3. There were no cardiac dysrhythmias pretest, during pharmacologic infusion, or recovery. 5. 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 6. The gated Cardiolite study reports an LVEF of 62%. This note was generated with Medityplus dictation software. It may contain incorrect words, spelling, and punctuation that were not noted in checking the note before signing. 11/13/24 153 Date Jose Hay MD CC: ENVIRONMENTAL CONSERVATION OFFICER-C Gustabo Pérez; Dr. Marycarmen Rodriguez, Date Dictated: 11/13/241536 Date Transcribed: 11/13/241536 Comb Fixer: PAULETTE Signed Normal [facility] Echo Complete W/ Contraston 11-10-2024 Echo Complete W/ Contrast [facility] Cardiovascular Services [address] [place] [address] Echo Complete W/ Contrast 11/10/24 0920 MR#: [id number] Acct: [id number] Name: ERIBERTO RICO Rep #: [id number] : 1945 79 From: Lance Rodriguez MD Attending Dr: Gustabo Pérez NP-C Status: REG CLI Ordering Dr: Maren Olivas Date: 11/10/24 Location: [facility] Sex: M C Admitted: Reason For Study Reason For Study: SHORTNESS OF BREATH Procedure This was a 2D Doppler, Color Flow transthoracic echocardiogram. The study was technically difficult. Exam performed in department. Left Ventricle Normal left ventricle. Left ventricular systolic function is normal. The LV ejection fraction is 60 %. No regional wall motion abnormalities noted. Right Ventricle Normal systolic function. Atria Normal atrial septum. Mitral Valve The mitral valve is structurally normal. No prolapse or stenosis seen. No mitral valve insufficiency. Tricuspid Valve Unable to estimate RV systolic pressure due to insufficient tricuspid regurgitant envelope. Aortic Valve The aortic valve is not well visualized in the short axis view. Moderate diffuse aortic valve calcification. Great Vessels Normal sized aortic root. Inferior vena cava collapse with sniff. The inferior vena cava is not dilated. Pericardium/Pleural Epicardial fat. Medication Diluted definity 1ml given slow IV push to enhance endocardial definition. MMode/2D Measurements Calculations LVIDd: 4.8 cm IVSd: 0.96 cm LVOT diam: 2.0 cm LVIDs: 3.1 cm LVPWd: 1.1 cm LVOT area: 3.2 cm2 RVDd: 3.5 cm FS: 35.7 % Ao root diam: 3.1 cm LAV(MOD-bp): 35.9 ml LVAd ap4: 29.2 cm2 LAV(MOD-bp) Indexed: 16.0 ml/m2 LVLd ap4: 7.5 cm LAV(MOD-sp2): 36.1 ml EDV(MOD-sp4): 91.9 ml LAV(MOD-sp4): 37.0 ml EDV(sp4-el): 96.7 ml LVAs ap4: 16.3 cm2 LVLs ap4: 5.9 cm ESV(MOD-sp4): 35.7 ml ESV(sp4-el): 38.1 ml EF(MOD-sp4): 61.2 % EF(sp4-el): 60.6 % SV(MOD-sp4): 56.3 ml SV(sp4-el): 58.6 ml LA A4 area: 16.1 cm2 SI(MOD-sp4): 25.1 ml/m2 LA dimension(2D): 3.5 cm RA A4 area: 14.4 cm2 TAPSE: 2.1 cm Time Measurements MV dec time: 0.22 sec Doppler Measurements Calculations MV E max jong: 92.4 cm/sec Lat Peak E' Jong: 18.7 cm/sec Med Peak E' Jong: 10.6 cm/sec MV A max jong: 80.8 cm/sec E/E' lat: 5.0 E/E' med: 8.7 MV E/A: 1.1 Ao V2 max: 205.6 cm/sec LV V1 max: 132.1 cm/sec PA V2 max: 160.5 cm/sec Ao max P.9 mmHg LV V1 max P.0 mmHg Ao V2 mean: 146.1 cm/sec Ao mean P.5 mmHg Ao V2 VTI: 44.3 cm LONG(V,D): 2.1 cm2 TR max jong: 228.2 cm/sec TR max P.8 mmHg ECHO/Echo Complete W/ Contrast Interpretation Summary The LV ejection fraction is 60 %. Ordering Physician: Maren Olivas Referring Physician: MARYCARMEN RODRIGUEZ Performed By: Maida Gómez RDCS 11/10/241212 Date Lance Rodriguez MD CC: YRN Pérez; Dr. Marycarmen Rodriguez, DO; Maren Olivas NP Date Dictated: 11/10/24919 Date Transcribed: 11/10/241212 Comb Fixer: Signed Normal [facility] Echocardiogram study reportO rdered By: Lance Rodriguez on 11-10-2024 Study report [facility] Cardiovascular Services [address] [place] [address] Echo Complete W/ Contrast 11/10/24919 MR#: [id number] Acct: [id number] Name: ERIBERTO RICO Rep #:[id number] : 1945 79 From: Lance Hooker Attending Dr: YRN Herr Sta tus: REG CLI Ordering Dr: Maren Olivas Driss e: 11/10/24 Location: [facility] Sex: M C Admitted: Reason For Study Reason For Study: SHORTNESS OF BREATH Procedure This was a 2D Doppler, Color Flow transthoracic echocardiogram. The study was technically difficult. Exam performed in department. Left Ventricle Normal left ventricle. Left ventricular systolic function is normal. The LV ejection fraction is 60 %. No regional wall motion abnormalities noted. Right Ventricle Normal systolic function. Atria Normal atrial septum. Mitral Valve The mitral valve is structurally normal. No prolapse or stenosis seen. No mitralvalve insufficiency. Tricuspid Valve Unable to estimate RV systolic pressure due to insufficient tricuspid regurgitant envelope. Aortic Valve The aortic valve is not well visualized in the short axis view. Moderate diffuseaortic valve calcification. Great Vessels Normal sized aortic root. Inferior vena cava collapse with sniff. The inferior vena cava is not dilated. Pericardium/Pleural Epicardial fat. Medication Diluted definity 1ml given slow IV push to enhance endocardial definition. MMode/2D Measurements & Calculations LVIDd: 4.8 cm IVSd: 0.96 cm LVOT diam: 2.0 cm LVIDs: 3.1 cm LVPWd: 1.1 cm LVOT area: 3.2 cm2 RVDd: 3.5 cm FS: 35.7 % Ao root diam: 3.1 cm LAV(MOD-bp): 35.9 ml LVAd ap4: 29.2 cm2 LAV(MOD-bp) Indexed: 16.0 ml/m2 LVLd ap4: 7.5 cm LAV(MOD-sp2): 36.1 ml EDV(MOD-sp4): 91.9 ml LAV(MOD-sp4): 37.0 ml EDV(sp4-el): 96.7 ml LVAs ap4: 16.3 cm2 LVLs ap4: 5.9 cm ESV(MOD-sp4): 35.7 ml ESV(sp4-el): 38.1 ml EF(MOD-sp4): 61.2 % EF(sp4-el): 60.6 % SV(MOD-sp4): 56.3 ml SV(sp4-el): 58.6 ml LA A4 area: 16.1 cm2 SI(MOD-sp4): 25.1 ml/m2 LA dimension(2D): 3.5 cm RA A4 area: 14.4 cm2 TAPSE: 2.1 cm Time Measurements MV dec time: 0.22 sec Doppler Measurements & Calculations MV E max jong: 92.4 cm/sec Lat Peak E' Jong: 18.7 cm/sec Med Peak E' Jong: 10.6 cm/sec MV A max jong: 80.8 cm/sec E/E' lat: 5.0 E/E' med: 8.7 MV E/A: 1.1 __ Ao V2 max: 205.6 cm/sec LV V1 max: 132.1 cm/sec PA V2 max: 160.5 cm/sec Ao max P.9 mmHg LV V1 max P.0 mmHg Ao V2 mean: 146.1 cm/sec Ao mean P.5 mmHg Ao V2 VTI: 44.3 cm LONG(V,D): 2.1 cm2 TR max jong: 228.2 cm/sec TR max P.8 mmHg ECHO/Echo Complete W/ Contrast Interpretation Summary The LV ejection fraction is 60 %. Ordering Physician: Maren Olivas Referring Physician: MARYCARMEN RODRIGUEZ Performed By: Maida Gómez RDCS 11/10/241212 Date _ Lance Rodriguez MD CC: YRN Pérez; Dr. Marycarmen Rodriguez DO; Maren Olivas NP ~ Date Dictated: 11/10/24919 Date Transcribed: 11/10/241212 Comb Fixer: Signed [facility] Absolute lymphocyte countOrd ered By: Marycarmen Rodriguez on 11-09-2024 Lymphocytes Auto (Unsp spec) [#/Vol] 1.23 10*3/uL 0.83-4.51 [facility] Absolute neutrophil countOrd ered By: Marycarmen Rodriguez on 11-09-2024 Neutrophils (Bld) [#/Vol] 4.1 10*3/uL 2.0-7.7 [facility] Anion gap in Serum or Plasma Ordered By: Marycarmen Rordiguez on 11-09-2024 Anion gap [Moles/Vol] 14 mmol/L 09-14 [facility] Automated lymphocyte count a s percentage of total leukocytesOrdered By: Marycarmen Rodriguez on 11-09-2024 Lymphocytes/100 WBC Auto (Unsp spec) 19.9 % [facility] BUN/creatinine ratioOrdered By: Marycarmen Rodriguez on 11-09-2024 Urea nitrogen/Creatinine [Mass ratio] 19.7 mg/mg 02-19 [facility] Basic Metabolic Profile (BMP )on 11-09-2024 BUN/CRE 19.7 RATIO Normal 02-19 [facility] Comment on above: Performed By: #### L 503.7505, L500.2500, L100.0100 ####[facility] [address] [place], [address] Calcium [Mass/Vol] 9.3 mg/dL Normal 7.6-11.0 [facility] Comment on above: Performed By: #### L 503.7505, L500.2500, L100.0100 ####[facility] [address] [place], [address] Chloride [Moles/Vol] 102 mmol/L Normal 98-108 [facility] Comment on above: Performed By: #### L 503.7505, L500.2500, L100.0100 ####[facility] [address] [place], [address] CO2 [Moles/Vol] 22.5 mmol/L Normal 21.0-32.0 [facility] Comment on above: Performed By: #### L 503.7505, L500.2500, L100.0100 ####[facility] [address] [place], [address] Creatinine [Mass/Vol] 2.49 mg/dL High 0.70-1.20 [facility] Comment on above: Performed By: #### L 503.7505, L500.2500, L100.0100 ####[facility] [address] [place], [address] GAP 14 Normal 5-15 [facility] Comment on above: Performed By: #### L 503.7505, L500.2500, L100.0100 ####[facility] [address] [place], [address] GFR/1.73 sq M.predicted among non-blacks MDRD (S/P/Bld) [Vol rate/Area] 26 mL/min/{1.73_m2} Low >60 [facility] Comment on above: Result Comment: mL/m in/1.73m2 CKD-EPI Creatinine Equation (2020) Performed By: #### L 503.7505, L500.2500, L100.0100 ####[facility] [address] [place], [address] Glucose [Mass/Vol] 169 mg/dL High 70-99 [facility] Comment on above: Performed By: #### L 503.7505, L500.2500, L100.0100 ####[facility] [address] [place], [address] Potassium [Moles/Vol] 4.6 mmol/L Normal 3.3-5.1 [facility] Comment on above: Performed By: #### L 503.7505, L500.2500, L100.0100 ####[facility] [address] [place] [place], [address] Sodium [Moles/Vol] 139 mmol/L Normal 133-145 [facility] Comment on above: Performed By: #### L 503.7505, L500.2500, L100.0100 ####[facility] [address] [place], [address] Urea nitrogen [Mass/Vol] 49 mg/dL High 4-19 [facility] Comment on above: Performed By: #### L 503.7505, L500.2500, L100.0100 ####[facility] [address] [place], [address] Basophil percentageOrdered B y: Marycarmen Rodriguez on 11-09-2024 Basophils/100 WBC (Bld) 0.3 % 0-1 [facility] CBC W/Diff, Automatedon 10-31 0-2024 Absolute Lymph 1.23 X10 3/uL Normal 0.83-4.51 [facility] Comment on above: Performed By: #### L 503.7505, L500.2500, L100.0100 ####[facility] [address] [place], [address] Absolute Neut 4.1 X10 3/uL Normal 2.0-7.7 [facility] Comment on above: Performed By: #### L 503.7505, L500.2500, L100.0100 ####[facility] [address] [place], [address] Basophils/100 WBC (Bld) 0.3 % Normal 0-1 [facility] Comment on above: Performed By: #### L 503.7505, L500.2500, L100.0100 ####[facility] [address] [place], [address] Eosinophils/100 WBC (Bld) 2.4 % Normal 0-5 [facility] Comment on above: Performed By: #### L 503.7505, L500.2500, L100.0100 ####[facility] [address] [place], [address] Erythrocyte distribution width (RBC) [Ratio] 14.1 % Normal 11.6-14.6 [facility] Comment on above: Performed By: #### L 503.7505, L500.2500, L100.0100 ####[facility] [address] [place], [address] Hematocrit (Bld) [Volume fraction] 38.2 % Low 40-54 [facility] Comment on above: Performed By: #### L 503.7505, L500.2500, L100.0100 ####[facility] [address] [place], [address] Hemoglobin (Bld) [Mass/Vol] 12.2 g/dL Low 13.0-16.5 [facility] Comment on above: Performed By: #### L 503.7505, L500.2500, L100.0100 ####[facility] [address] [place], [address] IG% 0.500 Normal 0.0-0.9 [facility] Comment on above: Result Comment: IG% - Immature Granulocytes (promyelocytes, myelocytes and metamyelocytes) > 1% indicates that a LEFT SHIFT is Present. Performed By: #### L 503.7505, L500.2500, L100.0100 ####[facility] [address] [place], [address] Lymphocytes/100 WBC (Bld) 19.9 % Normal 19-41 [facility] Comment on above: Performed By: #### L 503.7505, L500.2500, L100.0100 ####[facility] [address] [place], [address] MCH (RBC) [Entitic mass] 29.6 pg Normal 27.0-32.0 [facility] Comment on above: Performed By: #### L 503.7505, L500.2500, L100.0100 ####[facility] [address] [place], [address] MCHC (RBC) [Mass/Vol] 31.9 g/dL Low 32-36 [facility] Comment on above: Performed By: #### L 503.7505, L500.2500, L100.0100 ####[facility] [address] [place], [address] MCV (RBC) [Entitic vol] 92.7 fL Normal 80-94 [facility] Comment on above: Performed By: #### L 503.7505, L500.2500, L100.0100 ####[facility] [address] [place], [address] Monocytes/100 WBC (Bld) 10.4 % High 0-10 [facility] Comment on above: Performed By: #### L 503.7505, L500.2500, L100.0100 ####[facility] [address] [place], [address] Neutrophils/100 WBC (Bld) 66.5 % Normal 47-70 [facility] Comment on above: Performed By: #### L 503.7505, L500.2500, L100.0100 ####[facility] [address] [place], [address] Nucleated RBC (Bld) [#/Vol] 0 10*3/uL Normal 0-5 [facility] Comment on above: Performed By: #### L 503.7505, L500.2500, L100.0100 ####[facility] [address] [place], [address] Platelet mean volume (Bld) [Entitic vol] 12.7 fL High 6.2-12.0 [facility] Comment on above: Performed By: #### L 503.7505, L500.2500, L100.0100 ####[facility] [address] [place], [address] Platelets (Bld) [#/Vol] 120 10*3/uL Low 150-450 [facility] Comment on above: Performed By: #### L 503.7505, L500.2500, L100.0100 ####[facility] [address] [place], [address] RBC (Bld) [#/Vol] 4.12 10*6/uL Low 4.6-6.2 [facility] Comment on above: Performed By: #### L 503.7505, L500.2500, L100.0100 ####[facility] [address] [place], [address] RDW SD 47.8 fl High 35.1-43.9 [facility] [facility] Comment on above: Performed By: #### L 503.7505, L500.2500, L100.0100 ####[facility] [address] [place], [address] WBC (Bld) [#/Vol] 6.2 10*3/uL Normal 4.4-11.0 [facility] Comment on above: Performed By: #### L 503.7505, L500.2500, L100.0100 ####[facility] [address] [place], [address] Carbon dioxide, total [Moles /volume] in Central venous bloodOrdered By: Marycarmen Rodriguez on 11-09-2024 CO2 [Moles/Vol] 22.5 mmol/L 21.0-32.0 [facility] Chloride assayOrdered By: Ap Rodriguez on 11-09-2024 Chloride [Moles/Vol] 102 mmol/L 98-108 [facility] Eosinophil percentageOrdered By: Marycarmen Rodriguez on 11-09-2024 Eosinophils/100 WBC (Bld) 2.4 % 0-5 [facility] Erythrocyte distribution wid th ratioOrdered By: Marycarmen Rodriguez on 11-09-2024 Erythrocyte distribution width (RBC) [Ratio] 14.1 % 11.6-14.6 [facility] Erythrocyte distribution wid th standard deviationOrdered By: Marycarmen Rodriguez on 11-09-2024 Erythrocyte distribution width (RBC) [Ratio] 47.8 fl High 35.1-43.9 [facility] Glomerular filtration rate ( GFR) estimation/1.73 sq m using serum, plasma, or whole bOrdered By: Marycarmen Rodriguez on 11-09-2024 GFR/1.73 sq M.predicted among non-blacks MDRD (S/P/Bld) [Vol rate/Area] 26 mL/min/{1.73_m2} Low >60 [facility] Comment on above: mL/min/1.73m2 CKD-EP I Creatinine Equation (2020) Hematocrit Auto (Bld) [Volum e fraction]Ordered By: Marycarmen Rodriguez on 11-09-2024 Hematocrit (Bld) [Volume fraction] 38.2 % Low 40-54 [facility] Hemoglobin measurementOrdere d By: Marycarmen Rodriguez on 11-09-2024 Hemoglobin (Bld) [Mass/Vol] 12.2 g/dL Low 13.0-16.5 [facility] Immature granulocytes/100 WB C Auto (Bld)Ordered By: Marycarmen Rodriguez on 11-09-2024 Immature granulocytes/100 WBC (Bld) 0.500 % 0.0-0.9 [facility] Comment on above: IG% - Immature Granu locytes (promyelocytes, myelocytes and metamyelocytes) > 1% indicates that a LEFT SHIFT is Present. L503.7505on 11-09-2024 Natriuretic peptide B (Bld) [Mass/Vol] 91 pg/mL Normal <=1800 [facility] Comment on above: Result Comment: Hear t Failure Unlikely: < 300 pg/mL Heart Failure Likely < 50 Years: > 450 pg/mL 50-75 Years: > 900 pg/mL >75 Years: > 1800 pg/mL Performed By: #### L 503.7505, L500.2500, L100.0100 ####[facility] [address] [place], [address] MCV (mean corpuscular volume ) determinationOrdered By: Marycarmen Rodriguez on 11-09-2024 MCV (RBC) [Entitic vol] 92.7 fL 80-94 [facility] Mean corpuscular hemoglobin (MCH) determinationOrdered By: Marycarmen Rodriguez on 11-09-2024 MCH (RBC) [Entitic mass] 29.6 pg 27.0-32.0 [facility] Mean corpuscular hemoglobin concentration (MCHC) determinationOrdered By: Marycarmen Rodriguez on 11-09-2024 MCHC (RBC) [Mass/Vol] 31.9 g/dL Low 32-36 [facility] Mean platelet volume determi nationOrdered By: Marycarmen Rodriguez on 11-09-2024 Platelet mean volume (Bld) [Entitic vol] 12.7 fL High 6.2-12.0 [facility] Monocyte percentageOrdered B y: Marycarmen Rodriguez on 11-09-2024 Monocytes/100 WBC (Bld) 10.4 % High 0-10 [facility] Natriuretic peptide.B prohor efrem N-Terminal [Mass/volume] in Serum or PlasmaOrdered By: Marycarmen Rodriguez on 11-09-2024 Natriuretic peptide.B prohormone N-Terminal [Mass/Vol] 91 pg/mL <1800 [facility] Comment on above: Heart Failure Unlike ly: < 300 pg/mLHeart Failure Likely< 50 Years: > 450 pg/mL50-75 Years: > 900 pg/mL>75 Years: > 1800 pg/mL Neutrophil percentageOrdered By: Marycarmen Rodriguez on 11-09-2024 Neutrophils/100 WBC (Bld) 66.5 % 47-70 [facility] Nucleated red blood cell per centageOrdered By: Marycarmen Rodriguez on 11-09-2024 Nucleated RBC/100 WBC (Bld) [Ratio] 0 % 0-5 [facility] Platelet countOrdered By: Ap Rodriguez on 11-09-2024 Platelets (Bld) [#/Vol] 120 10*3/uL Low 150-450 [facility] Potassium measurement (mass/ volume)Ordered By: Marycarmen Rodriguez on 11-09-2024 Potassium (Unsp spec) [Mass/Vol] 4.6 mmol/L 3.3-5.1 [facility] RBC Auto (Bld) [#/Vol]Ordere d By: Marycarmen Rodriguez on 11-09-2024 RBC (Bld) [#/Vol] 4.12 10*6/uL Low 4.6-6.2 [facility] Serum creatinine measurement (mass/volume)Ordered By: Marycarmen Rodriguez on 11-09-2024 Creatinine [Mass/Vol] 2.49 mg/dL High 0.70-1.20 [facility] Serum glucose measurement (m ass/volume)Ordered By: Marycarmen Rodriguez on 11-09-2024 Glucose [Mass/Vol] 169 mg/dL High 70-99 [facility] Serum or plasma calcium francine urement (mass/volume)Ordered By: Marycarmen Rodriguez on 11-09-2024 Calcium [Mass/Vol] 9.3 mg/dL 7.6-11.0 [facility] Serum or plasma urea nitroge n measurement (mass/volume)Ordered By: Marycarmen Rodriguez on 11-09-2024 Urea nitrogen [Mass/Vol] 49 mg/dL High 4-19 [facility] Sodium levelOrdered By: Marycarmen Rodriguez on 11-09-2024 Sodium [Moles/Vol] 139 mmol/L 133-145 [facility] White blood cell (WBC) count Ordered By: Marycarmen Rodriguez on 11-09-2024 WBC (Bld) [#/Vol] 6.2 10*3/uL 4.4-11.0 [facility] Pulmonary Visit Reporton Pulmonary Visit Report [facility] of [address] [place] [address] OFFICE VISIT Date of Service: 10/31/24 MR#: [id number] Acct: [id number] Name: ERIBERTO RICO Rep #: [id number] : 1945 Provider: Maren Olivas NP Age/Sex: 79/M Location: [facility].PMW Status: Signed Assessment and [...] included)... Normal [facility] Cardiology Visit Reporton Cardiology Visit Report [facility] [address] [place] [address] OFFICE VISIT Date of Service: 10/25/24 MR#: [id number] Acct: [id number] Name: ERIBERTO RICO Rep #: [id number] : 1945 Provider: YRN arvizu Age/Sex: 79/M Location: [facility] Status: Signed HPI HPI History of Present [...] NIBP Intake Visit Reasons: Shortness of breath Block Stacker Required: No Is patient in pain?: No [...] included)... Normal [facility] L3410.9992on 10-23-2024 [facility] Misc. COMMENT Normal . [facility] Comment on above: Order Comment: [id number] 0MED TOX Result Comment: Test Ordered: [id number] Amphetamines Screen, Urine Negative ng/mL UI Reference Range: Thdqem=266 Amphetamine test includes Amphetamine and Methamphetamine. Barbiturates Negative ng/mL UI Reference Range: Bkxqsh=063 Benzodiazepines Negative ng/mL UI Reference Range: Migzvn=547 Cocaine (Metab.), Urine Negative ng/mL UI Reference Range: Tliwly=980 Opiates Note: ng/mL UI See Final Results Reference Range: Hhnxlf=613 Opiate test includes Codeine, Morphine, Hydromorphone, Hydrocodone. Opiates Positive [A ] UI Reference Range: Ddhbhu=145 Opiate test includes Codeine, Morphine, Hydromorphone, Hydrocodone. Codeine Negative UI Reference Range: Pqtman=770 Morphine Negative UI Reference Range: Uxigmk=485 Hydromorphone Negative UI Reference Range: Vrgrzd=677 Hydrocodone Positive [A ] UI Reference Range: . Hydrocodone Conf, MS, UR 349 ng/mL UI Reference Range: Rpwqyo=779 6-Acetylmorphine, Urine Negative ng/mL UI Reference Range: Cutoff=10 Oxycodone/Oxymorphone, Urine Negative ng/mL UI Reference Range: Slhubx=216 Test includes Oxycodone and Oxymorphone PCP, Urine Negative ng/mL UI Reference Range: Cutoff=25 Methadone Screen, Urine Negative ng/mL UI Reference Range: Mpmzud=146 Propoxyphene, Urine Negative ng/mL UI Reference Range: Xujedh=036 Fentanyl, Urine Negative ng/mL UI Reference Range: Cutoff=2.0 Test includes Fentanyl and Norfentanyl This test was developed and its performance characteristics determined by [facility]. It has not been cleared or approved by the Food and Drug Administration. Tramadol Negative ng/mL UI Reference Range: Noiomp=170 Buprenorphine, Urine Negative ng/mL UI Reference Range: Cutoff=10 Creatinine, Urine 36.9 mg/dL UI Reference Range: 20.0-300.0 pH, Urine 6.1 UI Reference Range: 4.5-8.9 Performed at: [facility] [id number] [place], [place] [id number] Physician Neonatology: Erik Wallis PhD, Phone: [phone] Performed at: [address] [id number] Physician Neonatology: Bharath Hawthorne PhD, Phone: [phone] Performed By: #### L 3410.9992, L505.5000 ####[facility] [address] [place], [place], [address] Absolute lymphocyte countOrd ered By: Gustabo Pérez on 10-18-2024 Lymphocytes Auto (Unsp spec) [#/Vol] 1.15 10*3/uL 0.83-4.51 [facility] Absolute neutrophil countOrd ered By: Gustabo Pérez on 10-18-2024 Neutrophils (Bld) [#/Vol] 4.6 10*3/uL 2.0-7.7 [facility] Amphetamine detection with 1 000 ng/mL as cutoffOrdered By: Brooks Carpenter on 10-18-2024 Amphetamines Screen method >1000 ng/mL Ql (U) Negative < 200 ng/mL [facility] Anion gap in Serum or Plasma Ordered By: Gustabo Pérez on 10-18-2024 Anion gap [Moles/Vol] 12 mmol/L 5-15 [facility] Automated lymphocyte count a s percentage of total leukocytesOrdered By: Gustabo Pérez on 10-18-2024 Lymphocytes/100 WBC Auto (Unsp spec) 17.4 % Low 19- [facility] BUN/creatinine ratioOrdered By: Gustabo Pérez on 10-18-2024 Urea nitrogen/Creatinine [Mass ratio] 16.4 mg/mg - [facility] Basic Metabolic Profile (BMP )on 10-18-2024 BUN/CRE 16.4 RATIO Normal - [facility] Comment on above: Performed By: #### L 500.2500, L503.7505, L100.0100 ####[facility] [address] [place], [address] Calcium [Mass/Vol] 9.0 mg/dL Normal 7.6-11.0 [facility] Comment on above: Performed By: #### L 500.2500, L503.7505, L100.0100 ####[facility] [address] [place], [address] Chloride [Moles/Vol] 103 mmol/L Normal 98-108 [facility] Comment on above: Performed By: #### L 500.2500, L503.7505, L100.0100 ####[facility] [address] [place], [address] CO2 [Moles/Vol] 23.9 mmol/L Normal 21.0-32.0 [facility] Comment on above: Performed By: #### L 500.2500, L503.7505, L100.0100 ####[facility] [address] [place], [address] Creatinine [Mass/Vol] 2.00 mg/dL High 0.70-1.20 [facility] Comment on above: Performed By: #### L 500.2500, L503.7505, L100.0100 ####[facility] [address] [place], [address] GAP 12 Normal 5-15 [facility] Comment on above: Performed By: #### L 500.2500, L503.7505, L100.0100 ####[facility] [address] [place], [address] GFR/1.73 sq M.predicted among non-blacks MDRD (S/P/Bld) [Vol rate/Area] 33 mL/min/{1.73_m2} Low >60 [facility] Comment on above: Result Comment: mL/m in/1.73m2 CKD-EPI Creatinine Equation (2020) Performed By: #### L 500.2500, L503.7505, L100.0100 ####[facility] [address] [place], [address] Glucose [Mass/Vol] 125 mg/dL High 70-99 [facility] Comment on above: Performed By: #### L 500.2500, L503.7505, L100.0100 ####[facility] [address] [place], [address] Potassium [Moles/Vol] 4.8 mmol/L Normal 3.3-5.1 [facility] Comment on above: Performed By: #### L 500.2500, L503.7505, L100.0100 ####[facility] [address] [place], [address] Sodium [Moles/Vol] 139 mmol/L Normal 133-145 [facility] Comment on above: Performed By: #### L 500.2500, L503.7505, L100.0100 ####[facility] [address] [place] [place], [address] Urea nitrogen [Mass/Vol] 33 mg/dL High 4-19 [facility] Comment on above: Performed By: #### L 500.2500, L503.7505, L100.0100 ####[facility] [address] [place], [address] Basophil percentageOrdered B y: Gustabo Pérez on 10-18-2024 Basophils/100 WBC (Bld) 0.2 % 0-1 [facility] CBC W/Diff, Automatedon 10-01 Absolute Lymph 1.15 X10 3/uL Normal 0.83-4.51 [facility] Comment on above: Performed By: #### L 500.2500, L503.7505, L100.0100 ####[facility] [address] [place], [address] Absolute Neut 4.6 X10 3/uL Normal 2.0-7.7 [facility] Comment on above: Performed By: #### L 500.2500, L503.7505, L100.0100 ####[facility] [address] [place], [address] Basophils/100 WBC (Bld) 0.2 % Normal 0-1 [facility] Comment on above: Performed By: #### L 500.2500, L503.7505, L100.0100 ####[facility] [address] [place], [address] Eosinophils/100 WBC (Bld) 2.0 % Normal 0-5 [facility] Comment on above: Performed By: #### L 500.2500, L503.7505, L100.0100 ####[facility] [address] [place], [address] Erythrocyte distribution width (RBC) [Ratio] 14.3 % Normal 11.6-14.6 [facility] Comment on above: Performed By: #### L 500.2500, L503.7505, L100.0100 ####[facility] [address] [place], [address] Hematocrit (Bld) [Volume fraction] 36.4 % Low 40-54 [facility] Comment on above: Performed By: #### L 500.2500, L503.7505, L100.0100 ####[facility] [address] [place], [address] Hemoglobin (Bld) [Mass/Vol] 11.5 g/dL Low 13.0-16.5 [facility] Comment on above: Performed By: #### L 500.2500, L503.7505, L100.0100 ####[facility] [address] [place], [address] IG% 0.600 Normal 0.0-0.9 [facility] Comment on above: Result Comment: IG% - Immature Granulocytes (promyelocytes, myelocytes and metamyelocytes) > 1% indicates that a LEFT SHIFT is Present. Performed By: #### L 500.2500, L503.7505, L100.0100 ####[facility] [address] [place], [address] Lymphocytes/100 WBC (Bld) 17.4 % Low 19-41 [facility] Comment on above: Performed By: #### L 500.2500, L503.7505, L100.0100 ####[facility] [address] [place], [address] MCH (RBC) [Entitic mass] 29.4 pg Normal 27.0-32.0 [facility] Comment on above: Performed By: #### L 500.2500, L503.7505, L100.0100 ####[facility] [address] [place], [address] MCHC (RBC) [Mass/Vol] 31.6 g/dL Low 32-36 [facility] Comment on above: Performed By: #### L 500.2500, L503.7505, L100.0100 ####[facility] [address] [place], [address] MCV (RBC) [Entitic vol] 93.1 fL Normal 80-94 [facility] Comment on above: Performed By: #### L 500.2500, L503.7505, L100.0100 ####[facility] [address] [place], [address] Monocytes/100 WBC (Bld) 10.4 % High 0-10 [facility] Comment on above: Performed By: #### L 500.2500, L503.7505, L100.0100 ####[facility] [address] [place], [address] Neutrophils/100 WBC (Bld) 69.4 % Normal 47-70 [facility] Comment on above: Performed By: #### L 500.2500, L503.7505, L100.0100 ####[facility] [address] [place], [address] Nucleated RBC (Bld) [#/Vol] 0 10*3/uL Normal 0-5 [facility] Comment on above: Performed By: #### L 500.2500, L503.7505, L100.0100 ####[facility] [address] [place], [address] Platelet mean volume (Bld) [Entitic vol] 12.9 fL High 6.2-12.0 [facility] Comment on above: Performed By: #### L 500.2500, L503.7505, L100.0100 ####[facility] [address] [place], [address] Platelets (Bld) [#/Vol] 152 10*3/uL Normal 150-450 [facility] Comment on above: Performed By: #### L 500.2500, L503.7505, L100.0100 ####[facility] [address] [place], [address] RBC (Bld) [#/Vol] 3.91 10*6/uL Low 4.6-6.2 [facility] Comment on above: Performed By: #### L 500.2500, L503.7505, L100.0100 ####[facility] [address] [place], [address] RDW SD 48.5 fl High 35.1-43.9 [facility] Comment on above: Performed By: #### L 500.2500, L503.7505, L100.0100 ####[facility] [address] [place], [address] WBC (Bld) [#/Vol] 6.6 10*3/uL Normal 4.4-11.0 [facility] Comment on above: Performed By: #### L 500.2500, L503.7505, L100.0100 ####[facility] [address] [place], [address] Carbon dioxide, total [Moles /volume] in Central venous bloodOrdered By: Gustabo Pérez on 10-18-2024 CO2 [Moles/Vol] 23.9 mmol/L 21.0-32.0 [facility] Chloride assayOrdered By: Lydia Pérez on 10-18-2024 Chloride [Moles/Vol] 103 mmol/L 98-108 [facility] Eosinophil percentageOrdered By: Gustabo Pérez on 10-18-2024 Eosinophils/100 WBC (Bld) 2.0 % 0-5 [facility] Erythrocyte distribution wid th ratioOrdered By: Gustabo Pérez on 10-18-2024 Erythrocyte distribution width (RBC) [Ratio] 14.3 % 11.6-14.6 [facility] Erythrocyte distribution wid th standard deviationOrdered By: Gustabo Pérez on 10-18-2024 Erythrocyte distribution width (RBC) [Ratio] 48.5 fl High 35.1-43.9 [facility] Glomerular filtration rate ( GFR) estimation/1.73 sq m using serum, plasma, or whole bOrdered By: Gustabo Pérez on 10-18-2024 GFR/1.73 sq M.predicted among non-blacks MDRD (S/P/Bld) [Vol rate/Area] 33 mL/min/{1.73_m2} Low >60 [facility] Comment on above: mL/min/1.73m2 CKD-EP I Creatinine Equation (2020) Hematocrit Auto (Bld) [Volum e fraction]Ordered By: Gustabo Pérez on 10-18-2024 Hematocrit (Bld) [Volume fraction] 36.4 % Low 40-54 [facility] Hemoglobin measurementOrdere d By: Gustabo Pérez on 10-18-2024 Hemoglobin (Bld) [Mass/Vol] 11.5 g/dL Low 13.0-16.5 [facility] Immature granulocytes/100 WB C Auto (Bld)Ordered By: Gustabo Pérez on 10-18-2024 Immature granulocytes/100 WBC (Bld) 0.600 % 0.0-0.9 [facility] Comment on above: IG% - Immature Granu locytes (promyelocytes, myelocytes and metamyelocytes) > 1% indicates that a LEFT SHIFT is Present. L503.7505on 10-18-2024 Natriuretic peptide B (Bld) [Mass/Vol] 200 pg/mL Normal <=1800 [facility] Comment on above: Result Comment: Hear t Failure Unlikely: < 300 pg/mL Heart Failure Likely < 50 Years: > 450 pg/mL 50-75 Years: > 900 pg/mL >75 Years: > 1800 pg/mL Performed By: #### L 500.2500, L503.7505, L100.0100 ####[facility] [address] [place], [address] MCV (mean corpuscular volume ) determinationOrdered By: Gustabo Pérez on 10-18-2024 MCV (RBC) [Entitic vol] 93.1 fL 80-94 [facility] Mean corpuscular hemoglobin (MCH) determinationOrdered By: Gustabo Pérez on 10-18-2024 MCH (RBC) [Entitic mass] 29.4 pg 27.0-32.0 [facility] Mean corpuscular hemoglobin concentration (MCHC) determinationOrdered By: Gustabo Pérez on 10-18-2024 MCHC (RBC) [Mass/Vol] 31.6 g/dL Low 32-36 [facility] Mean platelet volume determi nationOrdered By: Gustabo Pérez on 10-18-2024 Platelet mean volume (Bld) [Entitic vol] 12.9 fL High 6.2-12.0 [facility] Monocyte percentageOrdered B y: Gustabo Pérez on 10-18-2024 Monocytes/100 WBC (Bld) 10.4 % High 0-10 [facility] Natriuretic peptide.B prohor efrem N-Terminal [Mass/volume] in Serum or PlasmaOrdered By: Gustabo Pérez on 10-18-2024 Natriuretic peptide.B prohormone N-Terminal [Mass/Vol] 200 pg/mL <1800 [facility] Comment on above: Heart Failure Unlike ly: < 300 pg/mLHeart Failure Likely< 50 Years: > 450 pg/mL50-75 Years: > 900 pg/mL>75 Years: > 1800 pg/mL Neutrophil percentageOrdered By: Gustabo Pérez on 10-18-2024 Neutrophils/100 WBC (Bld) 69.4 % 47-70 [facility] No Panel InformationOrdered By: Brooks Carpenter on 10-18-2024 Urine Buprenorphine Qualitative Negative < 200 ng/mL [facility] Urine Oxycodone Screen Negative < 100 ng/mL [facility] Negative < 200 ng/mL [facility] Nucleated red blood cell per centageOrdered By: Gustabo Pérez on 10-18-2024 Nucleated RBC/100 WBC (Bld) [Ratio] 0 % 0-5 [facility] Platelet countOrdered By: Lydia Pérez on 10-18-2024 Platelets (Bld) [#/Vol] 152 10*3/uL 150-450 [facility] Potassium measurement (mass/ volume)Ordered By: Gustabo Pérez on 10-18-2024 Potassium (Unsp spec) [Mass/Vol] 4.8 mmol/L 3.3-5.1 [facility] Quantitative urine opiates m easurementOrdered By: Brooks Carpenter on 10-18-2024 Opiates Ql (U) Positive < 300 ng/mL [facility] Comment on above: If confirmation test ing is needed, a separate order will be required to send out testing to the reference laboratory. RBC Auto (Bld) [#/Vol]Ordere d By: Gustabo Pérez on 10-18-2024 RBC (Bld) [#/Vol] 3.91 10*6/uL Low 4.6-6.2 [facility] Screening urine fentanyl ritu surementOrdered By: Brooks Carpenter on 10-18-2024 fentaNYL Screen Ql (U) Negative [facility] Serum creatinine measurement (mass/volume)Ordered By: Gustabo Pérez on 10-18-2024 Creatinine [Mass/Vol] 2.00 mg/dL High 0.70-1.20 [facility] Serum glucose measurement (m ass/volume)Ordered By: Gustabo Pérez on 10-18-2024 Glucose [Mass/Vol] 125 mg/dL High 70-99 [facility] Serum or plasma calcium francine urement (mass/volume)Ordered By: Gustabo Pérez on 10-18-2024 Calcium [Mass/Vol] 9.0 mg/dL 7.6-11.0 [facility] Serum or plasma urea nitroge n measurement (mass/volume)Ordered By: Gustabo Pérez on 10-18-2024 Urea nitrogen [Mass/Vol] 33 mg/dL High 4-19 [facility] Sodium levelOrdered By: Gustabo Pérez on 10-18-2024 Sodium [Moles/Vol] 139 mmol/L 133-145 [facility] Urine Drug Screen (VISTA)on 10-18-2024 AMPHETAMINES Negative Normal <1000 ng/mL [facility] Comment on above: Order Comment: PAIN MANAGMENT Performed By: #### L 3410.9992, L505.5000 #### [facility] Laboratory [address] [place], [address] BARBITIURATES Negative Normal < 200 ng/mL [facility] Comment on above: Order Comment: PAIN MANAGMENT Performed By: #### L 3410.9992, L505.5000 #### [facility] [address] [place], [address] BENZODIAZIPINE Negative Normal < 200 ng/mL [facility] Comment on above: Order Comment: PAIN MANAGMENT Performed By: #### L 3410.9992, L505.5000 #### [facility] [address] [place], [address] BUP Ur Drug Scr Negative Normal < 200 ng/mL [facility] Comment on above: Order Comment: PAIN MANAGMENT Performed By: #### L 3410.9992, L505.5000 #### [facility] Laboratory [address] [facility] [address] COCAINE Negative Normal < 300 ng/mL [facility] Comment on above: Order Comment: PAIN MANAGMENT Performed By: #### L 3410.9992, L505.5000 #### [facility] [address] [facility] [address] Fentanyl Negative Normal [facility] Comment on above: Order Comment: PAIN MANAGMENT Performed By: #### L 3410.9992, L505.5000 #### [facility] [address] [facility] [address] METHADONE Negative Normal < 300 ng/mL [facility] Comment on above: Order Comment: PAIN MANAGMENT Performed By: #### L 3410.9992, L505.5000 #### [facility] [address] [place] [address] OPIATES Positive Normal < 300 ng/mL [facility] Comment on above: Order Comment: PAIN MANAGMENT Result Comment: If c onfirmation testing is needed, a separate order will be required to send out testing to the reference laboratory. Performed By: #### L 3410.9992, L505.5000 #### [facility] [address] [facility] [address] OXYCODONE Negative Normal < 100 ng/mL [facility] Comment on above: Order Comment: PAIN MANAGMENT Performed By: #### L 3410.9992, L505.5000 #### [facility] [address] [facility] [address] PCP Negative Normal < 25 ng/mL [facility] Comment on above: Order Comment: PAIN MANAGMENT Performed By: #### L 3410.9992, L505.5000 #### [facility] [address] [facility] [id number] THC Negative Normal < 50 ng/mL [facility] Comment on above: Order Comment: PAIN MANAGMENT Performed By: #### L 3410.9992, L505.5000 #### [facility] [place], [place], [id number] Urine benzodiazepine levelOr dered By: Brooks Basali on 10-18-2024 Benzodiazepines Ql (U) Negative < 200 ng/mL [facility] Urine cocaine levelOrdered B y: Brooks Basali on 10-18-2024 Cocaine Ql (U) Negative < 300 ng/mL [facility] Urine cygwb-6-engsiugmnwmmqu abinol (THC) measurementOrdered By: Brooks Basali on 10-18-2024 Cannabinoids Screen Ql (U) Negative < 50 ng/mL [facility] Urine phencyclidine (PCP) de tectionOrdered By: [facility] Phencyclidine Ql (U) Negative < 25 ng/mL [facility] White blood cell (WBC) count Ordered By: Gustabo Pérez on 10-18-2024 WBC (Bld) [#/Vol] 6.6 10*3/uL 4.4-11.0 [facility] Absolute lymphocyte countOrd ered By: Marycarmen Rodriguez on 09-29-2024 Lymphocytes Auto (Unsp spec) [#/Vol] 1.35 10*3/uL 0.83-4.51 [facility] Absolute neutrophil countOrd ered By: Marycarmen Rodriguez on 09-29-2024 Neutrophils (Bld) [#/Vol] 9.2 10*3/uL High 2.0-7.7 [facility] Automated lymphocyte count a s percentage of total leukocytesOrdered By: Marycarmen Rodriguez on 09-29-2024 Lymphocytes/100 WBC Auto (Unsp spec) 10.9 % Low 19-41 [facility] Basophil percentageOrdered B y: Marycarmen Rodriguez on 09-29-2024 Basophils/100 WBC (Bld) 0.6 % 0-1 [facility] CBC W/Diff, Automatedon 09-02 Absolute Lymph 1.35 X10 3/uL Normal 0.83-4.51 [facility] Comment on above: Performed By: #### L 503.6150, L503.0106, L100.0100, L503.6550 ####[facility] [address] [place], [address] Absolute Neut 9.2 X10 3/uL High 2.0-7.7 [facility] Comment on above: Performed By: #### L 503.6150, L503.0106, L100.0100, L503.6550 ####[facility] [address] [place], [address] Basophils/100 WBC (Bld) 0.6 % Normal 0-1 [facility] Comment on above: Performed By: #### L 503.6150, L503.0106, L100.0100, L503.6550 ####[facility] [address] [place], [address] Eosinophils/100 WBC (Bld) 0.7 % Normal 0-5 [facility] Comment on above: Performed By: #### L 503.6150, L503.0106, L100.0100, L503.6550 ####[facility] [address] [place], [address] Erythrocyte distribution width (RBC) [Ratio] 14.2 % Normal 11.6-14.6 [facility] Comment on above: Performed By: #### L 503.6150, L503.0106, L100.0100, L503.6550 ####[facility] [address] [place], [address] Hematocrit (Bld) [Volume fraction] 37.4 % Low 40-54 [facility] Comment on above: Performed By: #### L 503.6150, L503.0106, L100.0100, L503.6550 ####[facility] [address] [place] [place], [address] Hemoglobin (Bld) [Mass/Vol] 12.1 g/dL Low 13.0-16.5 [facility] Comment on above: Performed By: #### L 503.6150, L503.0106, L100.0100, L503.6550 ####[facility] [address] [place], [address] IG% 3.600 High 0.0-0.9 [facility] Comment on above: Result Comment: IG% - Immature Granulocytes (promyelocytes, myelocytes and metamyelocytes) > 1% indicates that a LEFT SHIFT is Present. Performed By: #### L 503.6150, L503.0106, L100.0100, L503.6550 ####[facility] [address] [place], [address] Lymphocytes/100 WBC (Bld) 10.9 % Low 19-41 [facility] Comment on above: Performed By: #### L 503.6150, L503.0106, L100.0100, L503.6550 ####[facility] [address] [place], [address] MCH (RBC) [Entitic mass] 29.6 pg Normal 27.0-32.0 [facility] Comment on above: Performed By: #### L 503.6150, L503.0106, L100.0100, L503.6550 ####[facility] [address] [place], [address] MCHC (RBC) [Mass/Vol] 32.4 g/dL Normal 32-36 [facility] Comment on above: Performed By: #### L 503.6150, L503.0106, L100.0100, L503.6550 ####[facility] [address] [place], [address] MCV (RBC) [Entitic vol] 91.4 fL Normal 80-94 [facility] Comment on above: Performed By: #### L 503.6150, L503.0106, L100.0100, L503.6550 ####[facility] [address] [place], [address] Monocytes/100 WBC (Bld) 9.9 % Normal 0-10 [facility] Comment on above: Performed By: #### L 503.6150, L503.0106, L100.0100, L503.6550 ####[facility] [address] [place], [address] Neutrophils/100 WBC (Bld) 74.3 % High 47-70 [facility] Comment on above: Performed By: #### L 503.6150, L503.0106, L100.0100, L503.6550 ####[facility] [address] [place], [address] Nucleated RBC (Bld) [#/Vol] 0 10*3/uL Normal 0-5 [facility] Comment on above: Performed By: #### L 503.6150, L503.0106, L100.0100, L503.6550 ####[facility] [address] [place], [address] Platelet mean volume (Bld) [Entitic vol] 12.3 fL High 6.2-12.0 [facility] Comment on above: Performed By: #### L 503.6150, L503.0106, L100.0100, L503.6550 ####[facility] [address] [place], [address] Platelets (Bld) [#/Vol] 169 10*3/uL Normal 150-450 [facility] Comment on above: Performed By: #### L 503.6150, L503.0106, L100.0100, L503.6550 ####[facility] [address] [place], [address] RBC (Bld) [#/Vol] 4.09 10*6/uL Low 4.6-6.2 [facility] Comment on above: Performed By: #### L 503.6150, L503.0106, L100.0100, L503.6550 ####[facility] [address] [place], [address] RDW SD 47.4 fl High 35.1-43.9 [facility] Comment on above: Performed By: #### L 503.6150, L503.0106, L100.0100, L503.6550 ####[facility] [address] [place], [address] WBC (Bld) [#/Vol] 12.4 10*3/uL High 4.4-11.0 [facility] Comment on above: Performed By: #### L 503.6150, L503.0106, L100.0100, L503.6550 ####[facility] [address] [place], [address] Eosinophil percentageOrdered By: Marycarmen Rodriguez on 09-29-2024 Eosinophils/100 WBC (Bld) 0.7 % 0-5 [facility] Erythrocyte distribution wid th ratioOrdered By: Marycarmen Rodriguez on 09-29-2024 Erythrocyte distribution width (RBC) [Ratio] 14.2 % 11.6-14.6 [facility] Erythrocyte distribution wid th standard deviationOrdered By: Marycarmen Rodriguez on 09-29-2024 Erythrocyte distribution width (RBC) [Ratio] 47.4 fl High 35.1-43.9 [facility] Ferritinon 09-29-2024 Ferritin [Mass/Vol] 454 ng/mL High 37-417 [facility] Comment on above: Performed By: #### L 503.6150, L503.0106, L100.0100, L503.6550 ####[facility] [address] [place], [address] Hematocrit Auto (Bld) [Volum e fraction]Ordered By: Marycarmen Rodriguez on 09-29-2024 Hematocrit (Bld) [Volume fraction] 37.4 % Low 40-54 [facility] Hemoglobin measurementOrdere d By: Marycarmen Rodriguez on 09-29-2024 Hemoglobin (Bld) [Mass/Vol] 12.1 g/dL Low 13.0-16.5 [facility] Immature granulocytes/100 WB C Auto (Bld)Ordered By: Marycarmen Rodriguez on 09-29-2024 Immature granulocytes/100 WBC (Bld) 3.600 % High 0.0-0.9 [facility] Comment on above: IG% - Immature Granu locytes (promyelocytes, myelocytes and metamyelocytes) > 1% indicates that a LEFT SHIFT is Present. Ironon 09-29-2024 Iron [Mass/Vol] 80 ug/dL Normal 65-175 [facility] Comment on above: Performed By: #### L 503.6150, L503.0106, L100.0100, L503.6550 ####[facility] [address] [place], [address] Iron measurement (mass/mass) Ordered By: Marycarmen Rodriguez on 09-29-2024 Iron (Unsp spec) [Mass/Mass] 80 ug/dL 65-175 [facility] MCV (mean corpuscular volume ) determinationOrdered By: Marycarmen Rodriguez on 09-29-2024 MCV (RBC) [Entitic vol] 91.4 fL 80-94 [facility] Mean corpuscular hemoglobin (MCH) determinationOrdered By: Marycarmen Rodriguez on 09-29-2024 MCH (RBC) [Entitic mass] 29.6 pg 27.0-32.0 [facility] Mean corpuscular hemoglobin concentration (MCHC) determinationOrdered By: Marycarmen Rodriguez on 09-29-2024 MCHC (RBC) [Mass/Vol] 32.4 g/dL 32-36 [facility] Mean platelet volume determi nationOrdered By: Marycarmen Rodriguez on 09-29-2024 Platelet mean volume (Bld) [Entitic vol] 12.3 fL High 6.2-12.0 [facility] Monocyte percentageOrdered B y: Marycarmen Rodriguez on 09-29-2024 Monocytes/100 WBC (Bld) 9.9 % 0-10 [facility] Neutrophil percentageOrdered By: Marycarmen Rodriguez on 09-29-2024 Neutrophils/100 WBC (Bld) 74.3 % High 47-70 [facility] Nucleated red blood cell per centageOrdered By: Marycarmen Rodriguez on 09-29-2024 Nucleated RBC/100 WBC (Bld) [Ratio] 0 % 0-5 [facility] Platelet countOrdered By: Ap Rodriguez on 09-29-2024 Platelets (Bld) [#/Vol] 169 10*3/uL 150-450 [facility] RBC Auto (Bld) [#/Vol]Ordere d By: Marycarmen Rodriguez on 09-29-2024 RBC (Bld) [#/Vol] 4.09 10*6/uL Low 4.6-6.2 [facility] Serum or plasma ferritin ritu surement (mass/volume)Ordered By: Marycarmen Rodriguez on 09-29-2024 Ferritin [Mass/Vol] 454 ng/mL High 37-417 [facility] Vitamin B12on 09-29-2024 Cobalamin (Vitamin B12) [Mass/Vol] 766 pg/mL Normal 180-914 [facility] Comment on above: Performed By: #### L 503.6150, L503.0106, L100.0100, L503.6550 ####[facility] [address] [place], [place], [id number] Vitamin B12 ser/plasOrdered By: Marycarmen Rodriguez on 09-29-2024 Cobalamin (Vitamin B12) [Mass/Vol] 766 pg/mL 180-914 [facility] White blood cell (WBC) count Ordered By: Marycarmen Rodriguez on 09-29-2024 WBC (Bld) [#/Vol] 12.4 10*3/uL High 4.4-11.0 [facility] Absolute lymphocyte countOrd ered By: ELIAZAR Olivas on 09-20-2024 Lymphocytes Auto (Unsp spec) [#/Vol] 1.44 10*3/uL 0.83-4.51 [facility] Absolute neutrophil countOrd ered By: ELIAZAR Olivas on 09-20-2024 Neutrophils (Bld) [#/Vol] 6.6 10*3/uL 2.0-7.7 [facility] Automated lymphocyte count a s percentage of total leukocytesOrdered By: ELIAZAR Olivas on 09-20-2024 Lymphocytes/100 WBC Auto (Unsp spec) 15.5 % Low 19-41 [facility] Basophil percentageOrdered B y: ELIAZAR Olivas on 09-20-2024 Basophils/100 WBC (Bld) 0.3 % 0-1 [facility] CBC W/Diff, Automatedon 09-01-2024 Absolute Lymph 1.44 X10 3/uL Normal 0.83-4.51 [facility] Comment on above: Performed By: #### L 100.0100, L503.7505 #### [facility] Laboratory [address] [place], [address] Absolute Neut 6.6 X10 3/uL Normal 2.0-7.7 [facility] Comment on above: Performed By: #### L 100.0100, L503.7505 #### [facility] [address] [place], [address] Basophils/100 WBC (Bld) 0.3 % Normal 0-1 [facility] Comment on above: Performed By: #### L 100.0100, L503.7505 #### [facility] [address] [place], [address] Eosinophils/100 WBC (Bld) 1.5 % Normal 0-5 [facility] Comment on above: Performed By: #### L 100.0100, L503.7505 #### [facility] [address] [place], [address] Erythrocyte distribution width (RBC) [Ratio] 14.1 % Normal 11.6-14.6 [facility] Comment on above: Performed By: #### L 100.0100, L503.7505 #### [facility] [address] [place], [address] Hematocrit (Bld) [Volume fraction] 34.8 % Low 40-54 [facility] Comment on above: Performed By: #### L 100.0100, L503.7505 #### [facility] [address] [place], [address] Hemoglobin (Bld) [Mass/Vol] 11.1 g/dL Low 13.0-16.5 [facility] Comment on above: Performed By: #### L 100.0100, L503.7505 #### [facility] [address] [place], [address] IG% 0.800 Normal 0.0-0.9 [facility] Comment on above: Result Comment: IG% - Immature Granulocytes (promyelocytes, myelocytes and metamyelocytes) > 1% indicates that a LEFT SHIFT is Present. Performed By: #### L 100.0100, L503.7505 #### [facility] [address] [place], [address] Lymphocytes/100 WBC (Bld) 15.5 % Low 19-41 [facility] Comment on above: Performed By: #### L 100.0100, L503.7505 #### [facility] [address] [place], [address] MCH (RBC) [Entitic mass] 29.4 pg Normal 27.0-32.0 [facility] Comment on above: Performed By: #### L 100.0100, L503.7505 #### [facility] [address] [place], [address] MCHC (RBC) [Mass/Vol] 31.9 g/dL Low 32-36 [facility] Comment on above: Performed By: #### L 100.0100, L503.7505 #### [facility] [address] [place], [address] MCV (RBC) [Entitic vol] 92.1 fL Normal 80-94 [facility] Comment on above: Performed By: #### L 100.0100, L503.7505 #### [facility] Laboratory [address] [place], [address] Monocytes/100 WBC (Bld) 11.1 % High 0-10 [facility] Comment on above: Performed By: #### L 100.0100, L503.7505 #### [facility] [address] [place], [address] Neutrophils/100 WBC (Bld) 70.8 % High 47-70 [facility] Comment on above: Performed By: #### L 100.0100, L503.7505 #### [facility] [address] [place], [address] Nucleated RBC (Bld) [#/Vol] 0 10*3/uL Normal 0-5 [facility] Comment on above: Performed By: #### L 100.0100, L503.7505 #### [facility] [address] [place], [address] Platelet mean volume (Bld) [Entitic vol] 12.6 fL High 6.2-12.0 [facility] Comment on above: Performed By: #### L 100.0100, L503.7505 #### [facility] Laboratory [address] [place], [address] Platelets (Bld) [#/Vol] 166 10*3/uL Normal 150-450 [facility] Comment on above: Performed By: #### L 100.0100, L503.7505 #### [facility] Laboratory [address] [place], [address] RBC (Bld) [#/Vol] 3.78 10*6/uL Low 4.6-6.2 [facility] Comment on above: Performed By: #### L 100.0100, L503.7505 #### [facility] Laboratory [address] [place], [address] RDW SD 48.0 fl High 35.1-43.9 [facility] Comment on above: Performed By: #### L 100.0100, L503.7505 #### [facility] Laboratory [address] [place], [address] WBC (Bld) [#/Vol] 9.3 10*3/uL Normal 4.4-11.0 [facility] Comment on above: Performed By: #### L 100.0100, L503.7505 #### [facility] [address] [place], [address] Eosinophil percentageOrdered By: ELIAZAR Olivas on 09-20-2024 Eosinophils/100 WBC (Bld) 1.5 % 0-5 [facility] Erythrocyte distribution wid th ratioOrdered By: ELIAZAR Olivas on 09-20-2024 Erythrocyte distribution width (RBC) [Ratio] 14.1 % 11.6-14.6 [facility] Erythrocyte distribution wid th standard deviationOrdered By: ELIAZAR Olivas on 09-20-2024 Erythrocyte distribution width (RBC) [Ratio] 48.0 fl High 35.1-43.9 [facility] Hematocrit Auto (Bld) [Volum e fraction]Ordered By: ELIAZAR Olivas on 09-20-2024 Hematocrit (Bld) [Volume fraction] 34.8 % Low 40-54 [facility] Hemoglobin measurementOrdere d By: ELIAZAR Olivas on 09-20-2024 Hemoglobin (Bld) [Mass/Vol] 11.1 g/dL Low 13.0-16.5 [facility] Immature granulocytes/100 WB C Auto (Bld)Ordered By: ELIAZAR Olivas on 09-20-2024 Immature granulocytes/100 WBC (Bld) 0.800 % 0.0-0.9 [facility] Comment on above: IG% - Immature Granu locytes (promyelocytes, myelocytes and metamyelocytes) > 1% indicates that a LEFT SHIFT is Present. L503.7505on 09-20-2024 Natriuretic peptide B (Bld) [Mass/Vol] 84 pg/mL Normal <=1800 [facility] Comment on above: Result Comment: Hear t Failure Unlikely: < 300 pg/mL Heart Failure Likely < 50 Years: > 450 pg/mL 50-75 Years: > 900 pg/mL >75 Years: > 1800 pg/mL Performed By: #### L 100.0100, L503.7505 #### [facility] [address] [place], [address] MCV (mean corpuscular volume ) determinationOrdered By: ELIAZAR Olivas on 09-20-2024 MCV (RBC) [Entitic vol] 92.1 fL 80-94 [facility] Mean corpuscular hemoglobin (MCH) determinationOrdered By: ELIAZAR Olivas on 09-20-2024 MCH (RBC) [Entitic mass] 29.4 pg 27.0-32.0 [facility] Mean corpuscular hemoglobin concentration (MCHC) determinationOrdered By: ELIAZAR Olivas on 09-20-2024 MCHC (RBC) [Mass/Vol] 31.9 g/dL Low 32-36 [facility] Mean platelet volume determi nationOrdered By: ELIAZAR Olivas on 09-20-2024 Platelet mean volume (Bld) [Entitic vol] 12.6 fL High 6.2-12.0 [facility] Monocyte percentageOrdered B y: ELIAZAR Olivas on 09-20-2024 Monocytes/100 WBC (Bld) 11.1 % High 0-10 [facility] Natriuretic peptide.B prohor efrem N-Terminal [Mass/volume] in Serum or PlasmaOrdered By: ELIAZAR Olivas on 09-20-2024 Natriuretic peptide.B prohormone N-Terminal [Mass/Vol] 84 pg/mL <1800 [facility] Comment on above: Heart Failure Unlike ly: < 300 pg/mLHeart Failure Likely< 50 Years: > 450 pg/mL50-75 Years: > 900 pg/mL>75 Years: > 1800 pg/mL Neutrophil percentageOrdered By: ELIAZAR Olivas on 09-20-2024 Neutrophils/100 WBC (Bld) 70.8 % High 47-70 [facility] Nucleated red blood cell per centageOrdered By: ELIAZAR Olivas on 09-20-2024 Nucleated RBC/100 WBC (Bld) [Ratio] 0 % 0-5 [facility] Platelet countOrdered By: ELIAZAR Olivas on 09-20-2024 Platelets (Bld) [#/Vol] 166 10*3/uL 150-450 [facility] Pulmonary Visit Reporton Pulmonary Visit Report [facility] Pulmonary Medicine of [address] [place] [address] OFFICE VISIT Date of Service: 09/20/24 MR#: [id number] Acct: [id number] Name: ERIBERTO RICO Rep #: [id number] : 1945 Provider: Maren Olivas NP Age/Sex: 79/M Location: [facility].PMW Status: Signed Assessment and [...] included)... Normal [facility] RBC Auto (Bld) [#/Vol]Ordere d By: ELIAZAR Olivas on 09-20-2024 RBC (Bld) [#/Vol] 3.78 10*6/uL Low 4.6-6.2 [facility] White blood cell (WBC) count Ordered By: ELIAZAR Olivas on 09-20-2024 WBC (Bld) [#/Vol] 9.3 10*3/uL 4.4-11.0 [facility] 6 Minute Walk Teston 025 6 Minute Walk Test y [facility] Pulmonary Services/Neurology [address] [place] [address] MR#: [id number] Acct: [id number] Name: ERIBERTO RICO Rep #: [id number] : 1945 78 From: [facility] [place] DO Referring Dr: Marni Horn NP ENVIRONMENTAL CONSERVATION OFFICER-C Status: REG CLI Location: PSN Date: Sex: M C PSN 6 Minute Walk Test 6 Minute Walk Test 6 Minute Walk Test: 6 Minute Walk Test PSN:6-Minute Walk Test Start: 07/18/24 06:38 Freq: Status: Active Protocol: RESP.6MINW Document 07/18/24 06:00 [facility] (Rec: 07/18/24 06:47 [facility] [id number]) 6 Minute Walk Test Date Performed 07/18/24 Time Performed 06:00 Height 5 ft 9 in Weight: 230 lb Weight in Pounds 230.[address]: Marni Horn ENVIRONMENTAL CONSERVATION OFFICER Assistive device Cane used: Pre-test Oxygen Delivery [...] Date Dictated: 07/18/24 1032 Date Transcribed: 07/18/24 1032 Comb Fixer: Dr. Zen [place] DO Signed Normal [facility] Pulmonary Visit Reporton Pulmonary Visit Report [facility] Pulmonary Medicine of [address] [place] [address] OFFICE VISIT Date of Service: 07/03/24 MR#: [id number] Acct: [id number] Name: ERIBERTO RICO Rep #: [id number] : 1945 Provider: YRN Horn Age/Sex: 78/M Location: [facility] [place] [facility].PMW Status: Signed Assessment and [...] included)... Normal [facility] BUN/creatinine ratioOrdered By: Marycarmen Rodriguez on 06-30-2024 Urea nitrogen/Creatinine [Mass ratio] 17.4 mg/mg 10-20 [facility] Basic Metabolic Profile (BMP )on 06-30-2024 Anion gap [Moles/Vol] 11 mmol/L Normal 5-15 [facility] Comment on above: Performed By: #### L 500.2500 ####[facility] [address] [place], [address] BUN/CRE 17.4 RATIO Normal 10-20 [facility] Comment on above: Performed By: #### L 500.2500 ####[facility] [address] [place], [address] Calcium [Mass/Vol] 9.7 mg/dL Normal 7.6-11.0 [facility] Comment on above: Performed By: #### L 500.2500 ####[facility] [address] [place], [address] Chloride [Moles/Vol] 105 mmol/L Normal 96-108 [facility] Comment on above: Performed By: #### L 500.2500 ####[facility] [address] [place], [address] CO2 [Moles/Vol] 25.3 mmol/L Normal 22.0-29.0 [facility] Comment on above: Performed By: #### L 500.2500 ####[facility] [address] [place], [address] Creatinine [Mass/Vol] 1.80 mg/dL High 0.70-1.20 [facility] Comment on above: Performed By: #### L 500.2500 ####[facility] [address] [place], [address] GFR/1.73 sq M.predicted among non-blacks MDRD (S/P/Bld) [Vol rate/Area] 38 mL/min/{1.73_m2} Low >60 [facility] Comment on above: Result Comment: mL/m in/1.73m2 CKD-EPI Creatinine Equation (2020) Performed By: #### L 500.2500 ####[facility] [address] [place], [address] Glucose [Mass/Vol] 112 mg/dL High 70-99 [facility] Comment on above: Performed By: #### L 500.2500 ####[facility] [address] [place], [address] Potassium [Moles/Vol] 4.8 mmol/L Normal 3.3-5.1 [facility] Comment on above: Performed By: #### L 500.2500 ####[facility] [address] [place], [address] Sodium [Moles/Vol] 141 mmol/L Normal 133-145 [facility] Comment on above: Performed By: #### L 500.2500 ####[facility] [address] [place], [address] Urea nitrogen [Mass/Vol] 31 mg/dL High 4-19 [facility] Comment on above: Performed By: #### L 500.2500 ####[facility] [address] [place], [address] Carbon dioxide measurementOr dered By: Marycarmen Rodriguez on 06-30-2024 CO2 [Moles/Vol] 25.3 mmol/L 22.0-29.0 [facility] Chloride measurementOrdered By: Marycarmen Rodriguez on 06-30-2024 Chloride [Moles/Vol] 105 mmol/L 96-108 [facility] GFR/1.73 sq M.predicted ana lilia g non-blacks MDRD (S/P/Bld) [Vol rate/Area]Ordered By: Marycarmen Rodriguez on 06-30-2024 Estimated GFR (MDRD) Non-Af Amer 38 Low >60 [facility] Comment on above: mL/min/1.73m2 CKD-EP I Creatinine Equation (2020) Glomerular filtration rate ( GFR) estimation/1.73 sq m using serum, plasma, or whole bOrdered By: Marycarmen Rodriguez on 06-30-2024 GFR/1.73 sq M.predicted among non-blacks MDRD (S/P/Bld) [Vol rate/Area] 38 mL/min/{1.73_m2} Low >60 [facility] Comment on above: mL/min/1.73m2 CKD-EP I Creatinine Equation (2020) Serum creatinine measurement (mass/volume)Ordered By: Marycarmen Rodriguez on 06-30-2024 Creatinine [Mass/Vol] 1.80 mg/dL High 0.70-1.20 [facility] Serum glucose measurement (m ass/volume)Ordered By: Marycarmen Rodriguez on 06-30-2024 Glucose [Mass/Vol] 112 mg/dL High 70-99 [facility] Serum or plasma anion gap de termination (moles/volume)Ordered By: Marycarmen Rodriguez on 06-30-2024 Anion gap [Moles/Vol] 11 mmol/L 5-15 [facility] Serum or plasma calcium francine urement (mass/volume)Ordered By: Marycarmen Rodriguez on 06-30-2024 Calcium [Mass/Vol] 9.7 mg/dL 7.6-11.0 [facility] Serum or plasma potassium me asurementOrdered By: Marycarmen Rodriguez on 06-30-2024 Potassium [Moles/Vol] 4.8 mmol/L 3.3-5.1 [facility] Serum or plasma sodium measu rement (moles/volume)Ordered By: Marycarmen Rodriguez on 06-30-2024 Sodium [Moles/Vol] 141 mmol/L 133-145 [facility] Serum or plasma urea nitroge n measurement (mass/volume)Ordered By: Marycarmen Rodriguez on 06-30-2024 Urea nitrogen [Mass/Vol] 31 mg/dL High 4-19 [facility] Absolute neutrophil countOrd ered By: Gustabo Pérez on 04-17-2024 Neutrophils (Bld) [#/Vol] 6.0 10*3/uL 2.0-7.7 [facility] BNP (brain natriuretic pepti de measurement)Ordered By: Gustabo Pérez on 04-17-2024 Natriuretic peptide B (Bld) [Mass/Vol] 37.2 pg/mL 0-100 [facility] BNP,B-Type NATRIURETIC PEPTI Sharon 04-17-2024 Natriuretic peptide B (Bld) [Mass/Vol] 37.2 pg/mL Normal 0-100 [facility] Comment on above: Performed By: #### L 100.0100, L503.6620, L500.2500 #### [facility] Laboratory [address] [place] [place], [address] Basic Metabolic Profile (BMP )on 04-17-2024 BUN/CRE 11.2 RATIO Normal 10-20 [facility] Comment on above: Performed By: #### L 100.0100, L503.6620, L500.2500 #### [facility] [address] [place] [place], [address] CA,Total 9.0 mg/dL Normal 8.5-10.1 [facility] Comment on above: Performed By: #### L 100.0100, L503.6620, L500.2500 #### [facility] [address] [place], [address] Chloride [Moles/Vol] 107 mmol/L Normal 98-107 [facility] Comment on above: Performed By: #### L 100.0100, L503.6620, L500.2500 #### [facility] [address] [place], [address] CO2 [Moles/Vol] 27.0 mmol/L Normal 21.0-32.0 [facility] Comment on above: Performed By: #### L 100.0100, L503.6620, L500.2500 #### [facility] [address] [place] [place], [address] Creatinine [Mass/Vol] 1.79 mg/dL High 0.70-1.30 [facility] Comment on above: Result Comment: The validity of the calculated GFR GFRAA in patients over 70 years has not been determined. Clinical correlation is essential. Performed By: #### L 100.0100, L503.6620, L500.2500 #### [facility] [address] [place], [address] EST GFR - AA 47 mL/min Low >60 [facility] Comment on above: Result Comment: Afri can Libyan GFR Calc Performed By: #### L 100.0100, L503.6620, L500.2500 #### [facility] [address] [place] [place], [address] GAP 4 Low 5-15 [facility] Comment on above: Performed By: #### L 100.0100, L503.6620, L500.2500 #### [facility] [address] [place], [address] GFR/1.73 sq M.predicted among non-blacks MDRD (S/P/Bld) [Vol rate/Area] 39 mL/min/{1.73_m2} Low >60 [facility] Comment on above: Result Comment: Non- GFR Calc Performed By: #### L 100.0100, L503.6620, L500.2500 #### [facility] [address] [place], [address] Glucose [Mass/Vol] 228 mg/dL High 74-106 [facility] Comment on above: Result Comment: Gluc ose result greater than or equal to 200 mg/dL suggests DIABETES MELLITUS per A.D.A. criteria. Performed By: #### L 100.0100, L503.6620, L500.2500 #### [facility] [address] [place], [address] Potassium [Moles/Vol] 4.8 mmol/L Normal 3.5-5.1 [facility] Comment on above: Performed By: #### L 100.0100, L503.6620, L500.2500 #### [facility] [address] [place], [address] Sodium [Moles/Vol] 138 mmol/L Normal 136-145 [facility] Comment on above: Performed By: #### L 100.0100, L503.6620, L500.2500 #### [facility] [address] [place], [address] Urea nitrogen [Mass/Vol] 20 mg/dL High 7-18 [facility] Comment on above: Performed By: #### L 100.0100, L503.6620, L500.2500 #### [facility] [address] [place], [address] Basophil percentageOrdered B y: Gustabo Pérez on 04-17-2024 Basophils/100 WBC (Bld) 0.5 % 0-1 [facility] Blood urea nitrogen (BUN)/cr eatinine ratioOrdered By: Gustabo Beto on 04-17-2024 Urea nitrogen/Creatinine [Mass ratio] 11.2 mg/mg 10-20 [facility] CBC W/Diff, Automatedon 04-02-2023 Absolute Lymph 1.29 X10 3/uL Normal 0.83-4.51 [facility] Comment on above: Performed By: #### L 100.0100, L503.6620, L500.2500 #### [facility] Laboratory [address] [place], [address] Absolute Neut 6.0 X10 3/uL Normal 2.0-7.7 [facility] Comment on above: Performed By: #### L 100.0100, L503.6620, L500.2500 #### [facility] [address] [place], [address] Basophils/100 WBC (Bld) 0.5 % Normal 0-1 [facility] Comment on above: Performed By: #### L 100.0100, L503.6620, L500.2500 #### [facility] [address] [place], [address] Eosinophils/100 WBC (Bld) 1.2 % Normal 0-5 [facility] Comment on above: Performed By: #### L 100.0100, L503.6620, L500.2500 #### [facility] [address] [place], [address] Erythrocyte distribution width (RBC) [Ratio] 13.9 % Normal 11.6-14.6 [facility] Comment on above: Performed By: #### L 100.0100, L503.6620, L500.2500 #### [facility] [address] [place], [address] Hematocrit (Bld) [Volume fraction] 41.0 % Normal 40-54 [facility] Comment on above: Performed By: #### L 100.0100, L503.6620, L500.2500 #### [facility] [address] [place], [address] Hemoglobin (Bld) [Mass/Vol] 13.2 g/dL Normal 13.0-16.5 [facility] Comment on above: Performed By: #### L 100.0100, L503.6620, L500.2500 #### [facility] [address] [place], [address] IG% 0.600 Normal 0.0-0.9 [facility] Comment on above: Result Comment: IG% - Immature Granulocytes (promyelocytes, myelocytes and metamyelocytes) > 1% indicates that a LEFT SHIFT is Present. Performed By: #### L 100.0100, L503.6620, L500.2500 #### [facility] [address] [place], [address] Lymphocytes/100 WBC (Bld) 15.7 % Low 19-41 [facility] Comment on above: Performed By: #### L 100.0100, L503.6620, L500.2500 #### [facility] Laboratory [address] [place], [address] MCH (RBC) [Entitic mass] 29.2 pg Normal 27.0-32.0 [facility] Comment on above: Performed By: #### L 100.0100, L503.6620, L500.2500 #### [facility] [address] [place], [address] MCHC (RBC) [Mass/Vol] 32.2 g/dL Normal 32-36 [facility] Comment on above: Performed By: #### L 100.0100, L503.6620, L500.2500 #### [facility] Laboratory [address] [place], [address] MCV (RBC) [Entitic vol] 90.7 fL Normal 80-94 [facility] Comment on above: Performed By: #### L 100.0100, L503.6620, L500.2500 #### [facility] Laboratory [address] [place], [address] Monocytes/100 WBC (Bld) 8.5 % Normal 0-10 [facility] Comment on above: Performed By: #### L 100.0100, L503.6620, L500.2500 #### [facility] [address] [place], [address] Neutrophils/100 WBC (Bld) 73.5 % High 47-70 [facility] Comment on above: Performed By: #### L 100.0100, L503.6620, L500.2500 #### [facility] Laboratory [address] [place], [address] Nucleated RBC (Bld) [#/Vol] 0 10*3/uL Normal 0-5 [facility] Comment on above: Performed By: #### L 100.0100, L503.6620, L500.2500 #### [facility] Laboratory [address] [place], [address] Platelet mean volume (Bld) [Entitic vol] 12.3 fL High 6.2-12.0 [facility] Comment on above: Performed By: #### L 100.0100, L503.6620, L500.2500 #### [facility] Laboratory [address] [place], [address] Platelets (Bld) [#/Vol] 185 10*3/uL Normal 150-450 [facility] Comment on above: Performed By: #### L 100.0100, L503.6620, L500.2500 #### [facility] Laboratory [address] [place], [address] RBC (Bld) [#/Vol] 4.52 10*6/uL Low 4.6-6.2 [facility] Comment on above: Performed By: #### L 100.0100, L503.6620, L500.2500 #### [facility] Laboratory [address] [place], [address] RDW SD 46.4 fl High 35.1-43.9 [facility] Comment on above: Performed By: #### L 100.0100, L503.6620, L500.2500 #### [facility] Laboratory [address] [place], [address] WBC (Bld) [#/Vol] 8.2 10*3/uL Normal 4.4-11.0 [facility] Comment on above: Performed By: #### L 100.0100, L503.6620, L500.2500 #### [facility] Laboratory [address] [place], [address] Carbon dioxide measurementOr dered By: Gustabo Pérez on 04-17-2024 CO2 [Moles/Vol] 27.0 mmol/L 21.0-32.0 [facility] Cardiology Visit Reporton Cardiology Visit Report [facility] [address] [place] [address] OFFICE VISIT Date of Service: 04/17/24 MR#: [id number] Acct: [id number] Name: ERIBERTO RICO Rep #: [id number] : 1945 Provider: YRN arvizu Age/Sex: 78/M Location: [facility] [place] Status: Signed HPI HPI History of Present [...] air Intake Visit Reasons: 4 W FU Block Stacker Required: No Accompanied by: Self Is patient [...] included)... Normal [facility] Chloride measurementOrdered By: Gustabo Pérez on 04-17-2024 Chloride [Moles/Vol] 107 mmol/L 98-107 [facility] Eosinophil percentageOrdered By: Gustabo Pérez on 04-17-2024 Eosinophils/100 WBC (Bld) 1.2 % 0-5 [facility] Erythrocyte distribution wid th ratioOrdered By: Gustabo Pérez on 04-17-2024 Erythrocyte distribution width (RBC) [Ratio] 13.9 % 11.6-14.6 [facility] Erythrocyte distribution wid th standard deviationOrdered By: Gustabo Pérez on 04-17-2024 Erythrocyte distribution width (RBC) [Entitic vol] 46.4 fL High 35.1-43.9 [facility] Estimated glomerular filtrat ion rate (GFR) AmericanOrdered By: Gustabo Pérez on 04-17-2024 Estimated GFR (MDRD) Amer 47 mL/min Low >60 [facility] Comment on above: GFR Calc Glomerular filtration rate ( GFR) estimationOrdered By: Gustabo Pérez on 04-17-2024 Estimated GFR (MDRD) Non-Af Amer 39 mL/min Low >60 [facility] Comment on above: Non- GFR Calc Glucose measurementOrdered B y: Gustabo Pérez on 04-17-2024 Glucose [Mass/Vol] 228 mg/dL High 74-106 [facility] Comment on above: Glucose result great er than or equal to 200 mg/dLsuggests DIABETES MELLITUS per A.D.A. criteria. Hematocrit Auto (Bld) [Volum e fraction]Ordered By: Gustabo Pérez on 04-17-2024 Hematocrit (Bld) [Volume fraction] 41.0 % 40-54 [facility] Hemoglobin measurementOrdere d By: Gustabo Pérez on 04-17-2024 Hemoglobin (Bld) [Mass/Vol] 13.2 g/dL 13.0-16.5 [facility] Immature granulocytes/100 WB C Auto (Bld)Ordered By: Gustabo Pérez on 04-17-2024 Immature granulocytes/100 WBC (Bld) 0.600 % 0.0-0.9 [facility] Comment on above: IG% - Immature Granu locytes (promyelocytes, myelocytes and metamyelocytes) > 1% indicates that a LEFT SHIFT is Present. Lymphocytes Auto (Unsp spec) [#/Vol]Ordered By: Gustabo Pérez on 04-17-2024 Lymphocytes (Bld) [#/Vol] 1.29 10*3/uL 0.83-4.51 [facility] Lymphocytes/100 WBC Auto (Un sp spec)Ordered By: Gustabo Pérez on 04-17-2024 Lymphocytes/100 WBC (Bld) 15.7 % Low 19-41 [facility] MCV (mean corpuscular volume ) determinationOrdered By: Gustabo Pérez on 04-17-2024 MCV (RBC) [Entitic vol] 90.7 fL 80-94 [facility] Mean corpuscular hemoglobin (MCH) determinationOrdered By: Gustabo Pérez on 04-17-2024 MCH (RBC) [Entitic mass] 29.2 pg 27.0-32.0 [facility] Mean corpuscular hemoglobin concentration (MCHC) determinationOrdered By: Gustabo Pérez on 04-17-2024 MCHC (RBC) [Mass/Vol] 32.2 g/dL 32-36 [facility] Mean platelet volume determi nationOrdered By: Gustabo Pérez on 04-17-2024 Platelet mean volume (Bld) [Entitic vol] 12.3 fL High 6.2-12.0 [facility] Monocyte percentageOrdered B y: Gustabo Pérez on 04-17-2024 Monocytes/100 WBC (Bld) 8.5 % 0-10 [facility] Neutrophil percentageOrdered By: Gustabo Pérez on 04-17-2024 Neutrophils/100 WBC (Bld) 73.5 % High 47-70 [facility] Nucleated red blood cell per centageOrdered By: Gustabo Pérez on 04-17-2024 Nucleated RBC/100 WBC (Bld) [Ratio] 0 % 0-5 [facility] Platelet countOrdered By: Lydia Pérez on 04-17-2024 Platelets (Bld) [#/Vol] 185 10*3/uL 150-450 [facility] Potassium measurementOrdered By: Gustabo Pérez on 04-17-2024 Potassium [Moles/Vol] 4.8 mmol/L 3.5-5.1 [facility] RBC Auto (Bld) [#/Vol]Ordere d By: Gustabo Pérez on 04-17-2024 RBC (Bld) [#/Vol] 4.52 10*6/uL Low 4.6-6.2 [facility] Serum anion gap measurementO rdered By: Gustabo Pérez on 04-17-2024 Anion gap [Moles/Vol] 4 mmol/L Low 5-15 [facility] Serum or plasma calcium francine urement (mass/volume)Ordered By: Gustabo Pérez on 04-17-2024 Calcium [Mass/Vol] 9.0 mg/dL 8.5-10.1 [facility] Serum or plasma creatinine m easurement (mass/volume)Ordered By: Gustabo Pérez on 04-17-2024 Creatinine [Mass/Vol] 1.79 mg/dL High 0.70-1.30 [facility] Comment on above: The validity of the calculated GFR & GFRAA in patients over 70 years has not been determined. Clinical correlation is essential. Serum or plasma urea nitroge n measurement (mass/volume)Ordered By: Gustabo Pérez on 04-17-2024 Urea nitrogen [Mass/Vol] 20 mg/dL High 7-18 [facility] Sodium levelOrdered By: Gustabo Pérez on 04-17-2024 Sodium [Moles/Vol] 138 mmol/L 136-145 [facility] White blood cell (WBC) count Ordered By: Gustabo Pérez on 04-17-2024 WBC (Bld) [#/Vol] 8.2 10*3/uL 4.4-11.0 [facility] Office Visit Reporton 2023 Office Visit Report [facility] [address] [address] OFFICE VISIT Date of Service: 03/27/24 MR#: [id number] Acct: [id number] Patient: ERIBERTO RICO Rep #: [id number] : 1945 Provider: Dr. Jose Hay MD Age/Sex: 78/M Location: [facility] [place] Status: Signed Intake Vital Signs 03/20/24 08:28 [...] DO Normal [facility] Albumin to globulin ratioOrd ered By: Jose Hay on 03-23-2024 Albumin/Globulin [Mass ratio] 1.1 {ratio} 0.9-2.4 [facility] Bilirubin, totalOrdered By: Jose Hay on 03-23-2024 Bilirubin [Mass/Vol] 2.00 mg/dL High 0.20-1.00 [facility] Comment on above: For patients on eltr ombopag therapy, use of Dimension [place] TBIL is not recommended. Blood urea nitrogen (BUN)/cr eatinine ratioOrdered By: Jose Hay on 03-23-2024 Urea nitrogen/Creatinine [Mass ratio] 18.0 mg/mg 10-20 [facility] [facility] Carbon dioxide measurementOr dered By: Jose Hay on 03-23-2024 CO2 [Moles/Vol] 28.0 mmol/L 21.0-32.0 [facility] Chloride measurementOrdered By: Jose Hay on 03-23-2024 Chloride [Moles/Vol] 104 mmol/L 98-107 [facility] Comprehensive Metabolic Prof ilon 03-23-2024 Albumin [Mass/Vol] 3.7 g/dL Normal 3.2-5.0 [facility] Comment on above: Order Comment: DR REMY ORDERED BMP AND MAGNESIUM.DR HAY ORDERED LIPID CMP TSH. RANGLE Performed By: #### L 501.9520, L501.5200, L500.4050, L500.4100 ####[facility] [address] [place], [address] Albumin/Globulin [Mass ratio] 1.1 {ratio} Normal 0.9-2.4 [facility] Comment on above: Order Comment: DR REMY ORDERED BMP AND MAGNESIUM.DR HAY ORDERED LIPID CMP TSH. RANGLE Performed By: #### L 501.9520, L501.5200, L500.4050, L500.4100 ####[facility] [address] [place], [address] ALK P 92 U/L Normal 45-117 [facility] Comment on above: Order Comment: DR REMY ORDERED BMP AND MAGNESIUM.DR HAY ORDERED LIPID CMP TSH. RANGLE Performed By: #### L 501.9520, L501.5200, L500.4050, L500.4100 ####[facility] [address] [place], [address] ALT [Catalytic activity/Vol] 52 U/L Normal 16-61 [facility] Comment on above: Order Comment: DR REMY ORDERED BMP AND MAGNESIUM.DR HAY ORDERED LIPID CMP TSH. RANGLE Performed By: #### L 501.9520, L501.5200, L500.4050, L500.4100 ####[facility] [address] [place], [address] AST [Catalytic activity/Vol] 28 U/L Normal 15-37 [facility] Comment on above: Order Comment: DR REMY ORDERED BMP AND MAGNESIUM.DR HAY ORDERED LIPID CMP TSH. RANGLE Performed By: #### L 501.9520, L501.5200, L500.4050, L500.4100 ####[facility] [address] [place], [address] Bilirubin [Mass/Vol] 2.00 mg/dL High 0.20-1.00 [facility] Comment on above: Order Comment: DR REMY ORDERED BMP AND MAGNESIUM.DR HAY ORDERED LIPID CMP TSH. RANGLE Result Comment: For patients on eltrombopag therapy, use of Dimension [place] TBIL is not recommended. Performed By: #### L 501.9520, L501.5200, L500.4050, L500.4100 ####[facility] [address] [place], [address] BUN/CRE 18.0 RATIO Normal 10-20 [facility] Comment on above: Order Comment: DR REMY ORDERED BMP AND MAGNESIUM.DR HAY ORDERED LIPID CMP TSH. RANGLE Performed By: #### L 501.9520, L501.5200, L500.4050, L500.4100 ####[facility] [address] [place], [address] CA,Total 8.8 mg/dL Normal 8.5-10.1 [facility] Comment on above: Order Comment: DR REMY ORDERED BMP AND MAGNESIUM.DR HAY ORDERED LIPID CMP TSH. RANGLE Performed By: #### L 501.9520, L501.5200, L500.4050, L500.4100 ####[facility] [address] [place], [address] Chloride [Moles/Vol] 104 mmol/L Normal 98-107 [facility] Comment on above: Order Comment: DR REMY ORDERED BMP AND MAGNESIUM.DR HAY ORDERED LIPID CMP TSH. RANGLE Performed By: #### L 501.9520, L501.5200, L500.4050, L500.4100 ####[facility] [address] [place], [address] CO2 [Moles/Vol] 28.0 mmol/L Normal 21.0-32.0 [facility] Comment on above: Order Comment: DR REMY ORDERED BMP AND MAGNESIUM.DR HAY ORDERED LIPID CMP TSH. RANGLE Performed By: #### L 501.9520, L501.5200, L500.4050, L500.4100 ####[facility] [address] [place], [address] Creatinine [Mass/Vol] 1.67 mg/dL High 0.70-1.30 [facility] Comment on above: Order Comment: DR REMY ORDERED BMP AND MAGNESIUM.DR HAY ORDERED LIPID CMP TSH. RANGLE Result Comment: The validity of the calculated GFR GFRAA in patients over 70 years has not been determined. Clinical correlation is essential. Performed By: #### L 501.9520, L501.5200, L500.4050, L500.4100 ####[facility] [address] [place], [address] EST GFR - AA 51 mL/min Low >60 [facility] Comment on above: Order Comment: DR REMY ORDERED BMP AND MAGNESIUM.DR HAY ORDERED LIPID CMP TSH. RANGLE Result Comment: Afri can [place]yan GFR Calc Performed By: #### L 501.9520, L501.5200, L500.4050, L500.4100 ####[facility] [address] [place], [address] GAP 6 Normal 5-15 [facility] Comment on above: Order Comment: DR REMY ORDERED BMP AND MAGNESIUM.DR HAY ORDERED LIPID CMP TSH. RANGLE Performed By: #### L 501.9520, L501.5200, L500.4050, L500.4100 ####[facility] [address] [place], [address] GFR/1.73 sq M.predicted among non-blacks MDRD (S/P/Bld) [Vol rate/Area] 42 mL/min/{1.73_m2} Low >60 [facility] Comment on above: Order Comment: DR REMY ORDERED BMP AND MAGNESIUM.DR HAY ORDERED LIPID CMP TSH. RANGLE Result Comment: Non- GFR Calc Performed By: #### L 501.9520, L501.5200, L500.4050, L500.4100 ####[facility] [address] [place], [address] Globulin (S) [Mass/Vol] 3.3 g/dL Normal 2.2-4.2 [facility] Comment on above: Order Comment: DR REMY ORDERED BMP AND MAGNESIUM.DR HAY ORDERED LIPID CMP TSH. RANGLE Performed By: #### L 501.9520, L501.5200, L500.4050, L500.4100 ####[facility] [address] [place], [address] Glucose [Mass/Vol] 146 mg/dL High 74-106 [facility] Comment on above: Order Comment: DR REMY ORDERED BMP AND MAGNESIUM.DR HAY ORDERED LIPID CMP TSH. RANGLE Result Comment: Fast ing Glucose result greater than or equal to 126 mg/dL suggests DIABETES MELLITUS per A.D.A. criteria. Performed By: #### L 501.9520, L501.5200, L500.4050, L500.4100 ####[facility] [address] [place], [address] Potassium [Moles/Vol] 4.4 mmol/L Normal 3.5-5.1 [facility] Comment on above: Order Comment: DR REMY ORDERED BMP AND MAGNESIUM.DR HAY ORDERED LIPID CMP TSH. RANGLE Performed By: #### L 501.9520, L501.5200, L500.4050, L500.4100 ####[facility] [address] [place], [address] Sodium [Moles/Vol] 138 mmol/L Normal 136-145 [facility] Comment on above: Order Comment: DR REMY ORDERED BMP AND MAGNESIUM.DR HAY ORDERED LIPID CMP TSH. RANGLE Performed By: #### L 501.9520, L501.5200, L500.4050, L500.4100 ####[facility] [address] [place], [address] T PROT 7.0 g/dL Normal 6.4-8.2 [facility] Comment on above: Order Comment: DR REMY ORDERED BMP AND MAGNESIUM.DR HAY ORDERED LIPID CMP TSH. RANGLE Performed By: #### L 501.9520, L501.5200, L500.4050, L500.4100 ####[facility] [address] [place], [address] Urea nitrogen [Mass/Vol] 30 mg/dL High 7-18 [facility] Comment on above: Order Comment: DR REMY ORDERED BMP AND MAGNESIUM.DR HAY ORDERED LIPID CMP TSH. RANGLE Performed By: #### L 501.9520, L501.5200, L500.4050, L500.4100 ####[facility] [address] [place], [place], [id number] Estimated glomerular filtrat ion rate (GFR) AmericanOrdered By: Jose Hay on 03-23-2024 Estimated GFR (MDRD) Amer 51 mL/min Low >60 [facility] Comment on above: GFR Calc Glomerular filtration rate ( GFR) estimationOrdered By: Jose Hay on 03-23-2024 Estimated GFR (MDRD) Non-Af Amer 42 mL/min Low >60 [facility] Comment on above: Non- GFR Calc Glucose measurementOrdered B y: Jose Hay on 03-23-2024 Glucose [Mass/Vol] 146 mg/dL High 74-106 [facility] Comment on above: Fasting Glucose resu lt greater than or equal to 126 mg/dL suggests DIABETES MELLITUS per A.D.A. criteria. High density lipoprotein (HD L) measurementOrdered By: Jose Hay on 03-23-2024 Cholesterol in HDL [Mass/Vol] 52 mg/dL >40 [facility] Comment on above: The drugs N-Acetylcy steine and Metamizole may falsely depress this assay. Reference Range HDL <40 mg/dL Low HDL Cholesterol HDL >or= 60 mg/dL High HDL Cholesterol Laboratory - Chemistry and C hemistry - challengeOrdered By: Jose Hay on 03-23-2024 AST [Catalytic activity/Vol] 28 U/L 15-37 [facility] Lipid Profileon 03-23-2024 Cholesterol [Mass/Vol] 158 mg/dL Normal 200 [facility] Comment on above: Order Comment: DR REMY ORDERED BMP AND MAGNESIUM.DR HAY ORDERED LIPID CMP TSH. RANGLE Result Comment: <200 mg/dL Desirable 200-240 mg/dL Borderline >240 mg/dL High Risk Performed By: #### L 501.9520, L501.5200, L500.4050, L500.4100 ####[facility] [address] [place], [place], [id number] Cholesterol in HDL [Mass/Vol] 52 mg/dL Normal [facility] Comment on above: Order Comment: DR REMY ORDERED BMP AND MAGNESIUM.DR HAY ORDERED LIPID CMP TSH. RANGLE Result Comment: The drugs N-Acetylcysteine and Metamizole may falsely depress this assay. Reference Range HDL <40 mg/dL Low HDL Cholesterol HDL >or= 60 mg/dL High HDL Cholesterol Performed By: #### L 501.9520, L501.5200, L500.4050, L500.4100 ####[facility] [address] [place], [address] Cholesterol in LDL [Mass/Vol] 61 mg/dL Normal 0-130 [facility] Comment on above: Order Comment: DR REMY ORDERED BMP AND MAGNESIUM.DR HAY ORDERED LIPID CMP TSH. RANGLE Performed By: #### L 501.9520, L501.5200, L500.4050, L500.4100 ####[facility] [address] [place], [address] Cholesterol in VLDL [Mass/Vol] 45 mg/dL High 5-40 [facility] Comment on above: Order Comment: DR REMY ORDERED BMP AND MAGNESIUM.DR HAY ORDERED LIPID CMP TSH. RANGLE Performed By: #### L 501.9520, L501.5200, L500.4050, L500.4100 ####[facility] [address] [place], [address] Triglyceride [Mass/Vol] 225 mg/dL High [facility] Comment on above: Order Comment: DR REMY ORDERED BMP AND MAGNESIUM.DR HAY ORDERED LIPID CMP TSH. RANGLE Result Comment: The drugs N-Acetylcysteine and Metamizole may falsely depress this assay. Serum Triglycerides Reference Interval Normal <150 mg/dL Borderline high 150 - 199 mg/dL High 200 - 499 mg/dL Very High > or = 500 mg/dL Performed By: #### L 501.9520, L501.5200, L500.4050, L500.4100 ####[facility] [address] [place], [address] Low density lipoprotein (LDL ) cholesterol measurementOrdered By: Jose Hay on 03-23-2024 Cholesterol in LDL [Mass/Vol] 61 mg/dL 0-130 [facility] Magnesiumon 03-23-2024 Magnesium [Mass/Vol] 2.1 mg/dL Normal 1.6-2.6 [facility] Comment on above: Order Comment: DR REMY ORDERED BMP AND MAGNESIUM.DR HAY ORDERED LIPID CMP TSH. RANGLE Performed By: #### L 501.9520, L501.5200, L500.4050, L500.4100 ####[facility] [address] [place], [address] Magnesium measurementOrdered By: Jose Hay on 03-23-2024 Magnesium [Mass/Vol] 2.1 mg/dL 1.6-2.6 [facility] Potassium measurementOrdered By: Jose Hay on 03-23-2024 Potassium [Moles/Vol] 4.4 mmol/L 3.5-5.1 [facility] Serum anion gap measurementO rdered By: Jose Hay on 03-23-2024 Anion gap [Moles/Vol] 6 mmol/L 5-15 [facility] Serum globulin measurementOr dered By: Jose Hay on 03-23-2024 Globulin (S) [Mass/Vol] 3.3 g/dL 2.2-4.2 [facility] Serum or plasma alanine guerrero otransferase (ALT) measurementOrdered By: Jose Hay on 03-23-2024 ALT [Catalytic activity/Vol] 52 U/L 16-61 [facility] Serum or plasma albumin francine urement (mass/volume)Ordered By: Jose Hay on 03-23-2024 Albumin [Mass/Vol] 3.7 g/dL 3.2-5.0 [facility] Serum or plasma alkaline bell sphatase measurementOrdered By: Jose Hay on 03-23-2024 ALP [Catalytic activity/Vol] 92 U/L 45-117 [facility] Serum or plasma calcium francine urement (mass/volume)Ordered By: Jose Hay on 03-23-2024 Calcium [Mass/Vol] 8.8 mg/dL 8.5-10.1 [facility] Serum or plasma cholesterol measurement (mass/volume)Ordered By: Jose Hay on 03-23-2024 Cholesterol [Mass/Vol] 158 mg/dL <200 [facility] Comment on above: <200 mg/dL Desirable 200-240 mg/dL Borderline >240 mg/dL High Risk Serum or plasma creatinine m easurement (mass/volume)Ordered By: Jose Hay on 03-23-2024 Creatinine [Mass/Vol] 1.67 mg/dL High 0.70-1.30 [facility] Comment on above: The validity of the calculated GFR & GFRAA in patients over 70 years has not been determined. Clinical correlation is essential. Serum or plasma urea nitroge n measurement (mass/volume)Ordered By: Jose Hay on 03-23-2024 Urea nitrogen [Mass/Vol] 30 mg/dL High 7-18 [facility] Sodium levelOrdered By: Ernst Hay on 03-23-2024 Sodium [Moles/Vol] 138 mmol/L 136-145 [facility] TSH QnOrdered By: Jose rodriguez on 03-23-2024 Thyroid Stimulating Hormone (TSH) 5.340 uIU/mL High 0.358-3.740 [facility] Thyroid Stim Hormone (TSH)on 03-23-2024 TSH 5.340 uIU/mL High 0.358-3.740 [facility] Comment on above: Order Comment: DR REMY ORDERED BMP AND MAGNESIUM.DR HAY ORDERED LIPID CMP TSH. RANGLE Performed By: #### L 501.9520, L501.5200, L500.4050, L500.4100 ####[facility] [address] [place], [address] Total proteinOrdered By: Emmanuel Hay on 03-23-2024 Protein [Mass/Vol] 7.0 g/dL 6.4-8.2 [facility] Triglycerides measurementOrd ered By: Jose Hay on 03-23-2024 Triglyceride [Mass/Vol] 225 mg/dL High <199 [facility] Comment on above: The drugs N-Acetylcy steine and Metamizole may falsely depress this assay.Serum Triglycerides Reference Interval Normal <150 mg/dL Borderline high 150 - 199 mg/dL High 200 - 499 mg/dL Very High > or = 500 mg/dL Very low density lipoprotein (VLDL) cholesterol measurementOrdered By: Jose Hay on 03-23-2024 VLDL Cholesterol 45 mg/dL High 5-40 [facility] Cardiology Visit Reporton Cardiology Visit Report [facility] [address] [place] [address] OFFICE VISIT Date of Service: 03/20/24 MR#: [id number] Acct: [id number] Name: ERIBERTO RICO Rep #: [id number] : 1945 Provider: Dr. 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 Normal [facility] Basophil percentageOrdered B y: Marycarmen Rodriguez on 05-07-2023 Chloride [Moles/Vol] 103 mmol/L 98-107 [facility] Glucose [Mass/Vol] 172 mg/dL 74-106 [facility] Comment on above: Fasting Glucose resu lt greater than or equal to 126 mg/dL suggests DIABETES MELLITUS per A.D.A. criteria. Potassium [Moles/Vol] 3.7 mmol/L 3.5-5.1 [facility] Sodium [Moles/Vol] 138 mmol/L 136-145 [facility] Laboratory - Chemistry and C hemistry - challengeOrdered By: Marycarmen Rodriguez on 05-07-2023 CO2 [Moles/Vol] 27.0 mmol/L 21.0-32.0 [facility] Urea nitrogen/Creatinine [Mass ratio] 13.9 mg/mg 10-20 [facility] No Panel InformationOrdered By: Marycarmen Rodriguez on 05-07-2023 Estimated GFR (MDRD) Amer 74 mL/min >60 [facility] Comment on above: GFR Calc Estimated GFR (MDRD) Non-Af Amer 61 mL/min >60 [facility] Comment on above: Non- GFR Calc Serum or plasma calcium francine urement (mass/volume)Ordered By: Marycarmen Rodriguez on 05-07-2023 Calcium [Mass/Vol] 8.6 mg/dL 8.5-10.1 [facility] Serum or plasma creatinine m easurement (mass/volume)Ordered By: Marycarmen Rodriguez on 05-07-2023 Creatinine [Mass/Vol] 1.22 mg/dL 0.70-1.30 [facility] Comment on above: The validity of the calculated GFR & GFRAA in patients over 70 years has not been determined. Clinical correlation is essential. Serum or plasma urea nitroge n measurement (mass/volume)Ordered By: Marycarmen Rodriguez on 05-07-2023 Urea nitrogen [Mass/Vol] 17 mg/dL 7-18 [facility] Thin prep Papanicolaou smear with manual screeningOrdered By: Marycarmen Rodriguez on 05-07-2023 Thin prep Papanicolaou smear with manual screening 8 5-15 [facility] Basophil percentageOrdered B y: Jose Hay on 12-15-2022 Chloride [Moles/Vol] 110 mmol/L 98-107 [facility] Glucose [Mass/Vol] 121 mg/dL 74-106 [facility] Comment on above: Fasting Glucose resu lt from 100 to 125 mg/dL suggests IMPAIRED HOMEOSTASIS per A.D.A. criteria. Potassium [Moles/Vol] 4.0 mmol/L 3.5-5.1 [facility] Sodium [Moles/Vol] 139 mmol/L 136-145 [facility] WBC (Bld) [#/Vol] 7.3 10*3/uL 4.4-11.0 [facility] Blood erythrocytes count (nu mber/volume)Ordered By: Jose Hay on 12-15-2022 RBC (Bld) [#/Vol] 5.18 10*6/uL 4.6-6.2 [facility] Blood hemoglobin measurement (mass/volume)Ordered By: Jose Hay on 12-15-2022 Hemoglobin (Bld) [Mass/Vol] 15.2 g/dL 13.0-16.5 [facility] Blood platelet mean volumeOr dered By: Jose Hay on 12-15-2022 Platelet mean volume (Bld) [Entitic vol] 12.2 fL 6.2-12.0 [facility] Determination of erythrocyte mean corpuscular volume (MCV)Ordered By: Josejina Hay on 12-15-2022 MCV (RBC) [Entitic vol] 90.2 fL 80-94 [facility] Hematocrit Auto (Bld) [Volum e fraction]Ordered By: Josejina Hay on 12-15-2022 Hematocrit (Bld) [Volume fraction] 46.7 % 40-54 [facility] Laboratory - Chemistry and C hemistry - challengeOrdered By: Jose Jose Armando on 12-15-2022 CO2 [Moles/Vol] 23.0 mmol/L 21.0-32.0 [facility] Natriuretic peptide B (Bld) [Mass/Vol] 38.1 pg/mL 0-100 [facility] Urea nitrogen/Creatinine [Mass ratio] 13.5 mg/mg 10-20 [facility] Laboratory - Hematology and Cell countsOrdered By: Josejina Hay on 12-15-2022 Erythrocyte distribution width (RBC) [Entitic vol] 47.5 fL 35.1-43.9 [facility] Erythrocyte distribution width (RBC) [Ratio] 14.4 % 11.6-14.6 [facility] MCH (RBC) [Entitic mass] 29.3 pg 27.0-32.0 [facility] MCHC Auto (RBC) [Mass/Vol]Or dered By: Jose Hay on 12-15-2022 MCHC (RBC) [Mass/Vol] 32.5 g/dL 32-36 [facility] No Panel InformationOrdered By: Jose Hay on 12-15-2022 Estimated GFR (MDRD) Amer 83 mL/min >60 [facility] Comment on above: GFR Calc Estimated GFR (MDRD) Non-Af Amer 68 mL/min >60 [facility] Comment on above: Non- GFR Calc Platelets bldOrdered By: Emmanuel Hay on 12-15-2022 Platelets (Bld) [#/Vol] 143 10*3/uL 150-450 [facility] Serum or plasma calcium francine urement (mass/volume)Ordered By: Jose Hay on 12-15-2022 Calcium [Mass/Vol] 8.8 mg/dL 8.5-10.1 [facility] Serum or plasma creatinine m easurement (mass/volume)Ordered By: Jose Hay on 12-15-2022 Creatinine [Mass/Vol] 1.11 mg/dL 0.70-1.30 [facility] Comment on above: The validity of the calculated GFR & GFRAA in patients over 70 years has not been determined. Clinical correlation is essential. Serum or plasma urea nitroge n measurement (mass/volume)Ordered By: Jose Hay on 12-15-2022 Urea nitrogen [Mass/Vol] 15 mg/dL 7-18 [facility] Thin prep Papanicolaou smear with manual screeningOrdered By: Jose Hay on 12-15-2022 Thin prep Papanicolaou smear with manual screening 6 5-15 [facility] Absolute lymphocyte countOrd ered By: Luz Elena Mckeon on 10-13-2022 Lymphocytes Auto (Unsp spec) [#/Vol] 1.21 10*3/uL 0.83-4.51 [facility] Basophil percentageOrdered B y: Luz Elena Mckeon on 10-13-2022 Basophils/100 WBC (Bld) 0.5 % 0-1 [facility] Chloride [Moles/Vol] 106 mmol/L 98-107 [facility] Eosinophils/100 WBC (Bld) 1.4 % 0-5 [facility] Glucose [Mass/Vol] 277 mg/dL 74-106 [facility] Comment on above: Glucose result great er than or equal to 200 mg/dLsuggests DIABETES MELLITUS per A.D.A. criteria. Neutrophils (Bld) [#/Vol] 4.0 10*3/uL 2.0-7.7 [facility] Neutrophils/100 WBC (Bld) 68.5 % 47-70 [facility] Potassium [Moles/Vol] 4.1 mmol/L 3.5-5.1 [facility] Sodium [Moles/Vol] 139 mmol/L 136-145 [facility] WBC (Bld) [#/Vol] 5.8 10*3/uL 4.4-11.0 [facility] Blood erythrocytes count (nu mber/volume)Ordered By: Luz Elena Mckeon on 10-13-2022 RBC (Bld) [#/Vol] 4.66 10*6/uL 4.6-6.2 [facility] Blood hemoglobin measurement (mass/volume)Ordered By: Luz Elena Mckeon on 10-13-2022 Hemoglobin (Bld) [Mass/Vol] 13.6 g/dL 13.0-16.5 [facility] Blood lymphocytes/100 leukoc ytesOrdered By: Luz Elena Mckeon on 10-13-2022 Lymphocytes/100 WBC (Bld) 20.7 % 19-41 [facility] Blood monocytes/100 leukocyt esOrdered By: Luz Elena Mckeon on 10-13-2022 Monocytes/100 WBC (Bld) 8.6 % 0-10 [facility] Blood platelet mean volumeOr dered By: Luz Elena Mckeon on 10-13-2022 Platelet mean volume (Bld) [Entitic vol] 12.6 fL 6.2-12.0 [facility] Determination of erythrocyte mean corpuscular volume (MCV)Ordered By: Luz Elena Mckeon on 10-13-2022 MCV (RBC) [Entitic vol] 89.5 fL 80-94 [facility] Hematocrit Auto (Bld) [Volum e fraction]Ordered By: Luz Elena Mckeon on 10-13-2022 Hematocrit (Bld) [Volume fraction] 41.7 % 40-54 [facility] Laboratory - Chemistry and C hemistry - challengeOrdered By: Luz Elena Mckeon on 10-13-2022 CO2 [Moles/Vol] 27.0 mmol/L 21.0-32.0 [facility] Free T4 [Mass/Vol] 0.77 ng/dL 0.76-1.46 [facility] Magnesium [Mass/Vol] 2.1 mg/dL 1.6-2.6 [facility] Natriuretic peptide B (Bld) [Mass/Vol] 47.2 pg/mL 0-100 [facility] Urea nitrogen/Creatinine [Mass ratio] 17.2 mg/mg 10-20 [facility] Laboratory - Hematology and Cell countsOrdered By: Luz Elena Mckeon on 10-13-2022 Erythrocyte distribution width (RBC) [Entitic vol] 46.1 fL 35.1-43.9 [facility] Erythrocyte distribution width (RBC) [Ratio] 14.1 % 11.6-14.6 [facility] Immature granulocytes/100 WBC (Bld) 0.300 % 0.0-0.9 [facility] Comment on above: IG% - Immature Granu locytes (promyelocytes, myelocytes and metamyelocytes) > 1% indicates that a LEFT SHIFT is Present. MCH (RBC) [Entitic mass] 29.2 pg 27.0-32.0 [facility] Nucleated RBC/100 WBC (Bld) [Ratio] 0 % 0-5 [facility] MCHC Auto (RBC) [Mass/Vol]Or dered By: Luz Elena Mckeon on 10-13-2022 MCHC (RBC) [Mass/Vol] 32.6 g/dL 32-36 [facility] No Panel InformationOrdered By: Luz Elena Mckeon on 10-13-2022 Estimated GFR (MDRD) Amer 61 mL/min >60 [facility] Comment on above: GFR Calc Estimated GFR (MDRD) Non-Af Amer 50 mL/min >60 [facility] Comment on above: Non- GFR Calc Free Triiodothyronine (T3) pg/dL 2.7 pg/mL 2.18-3.98 [facility] Thyroid Stimulating Hormone (TSH) 4.12 uIU/mL 0.358-3.74 [facility] Platelets bldOrdered By: Loco Mckeon on 10-13-2022 Platelets (Bld) [#/Vol] 126 10*3/uL 150-450 [facility] Serum or plasma calcium francine urement (mass/volume)Ordered By: Luz Elena Mckeon on 10-13-2022 Calcium [Mass/Vol] 8.5 mg/dL 8.5-10.1 [facility] Serum or plasma creatinine m easurement (mass/volume)Ordered By: Luz Elena Mckeon on 10-13-2022 Creatinine [Mass/Vol] 1.45 mg/dL 0.70-1.30 [facility] Comment on above: The validity of the calculated GFR & GFRAA in patients over 70 years has not been determined. Clinical correlation is essential. Serum or plasma urea nitroge n measurement (mass/volume)Ordered By: Luz Elena Mckeon on 10-13-2022 Urea nitrogen [Mass/Vol] 25 mg/dL 7-18 [facility] Thin prep Papanicolaou smear with manual screeningOrdered By: Luz Elena Mckeon on 10-13-2022 Thin prep Papanicolaou smear with manual screening 6 5-15 [facility] COVID-19 virus antigen assay Ordered By: Shaan Santos on 09-21-2022 SARS-CoV-2 (COVID-19) Ag IA.rapid Ql (Resp) [facility] COVID-19 virus antigen assay Ordered By: Dr. Santos on 09-21-2022 SARS-CoV-2 (COVID-19) Ag IA.rapid Ql (Resp) [facility] Glucose Glucometer (BldC) [M ass/Vol]Ordered By: Dr. Santos on 09-21-2022 Glucose [Mass/Vol] 193 mg/dL 74-106 [facility] Comment on above: MANAGEMENT OF PATIEN T CARE PER NURSING PROTOCOL Absolute lymphocyte countOrd ered By: Dr. Leo on 09-18-2022 Lymphocytes Auto (Unsp spec) [#/Vol] 1.83 10*3/uL 0.83-4.51 [facility] Basophil percentageOrdered B y: Dr. Leo on 09-18-2022 Basophils/100 WBC (Bld) 0.3 % 0-1 [facility] Bilirubin [Mass/Vol] 1.20 mg/dL 0.20-1.00 [facility] Comment on above: For patients on eltr ombopag therapy, use of Dimension [place] TBIL is not recommended. Chloride [Moles/Vol] 108 mmol/L 98-107 [facility] Cholesterol [Mass/Vol] 114 mg/dL <200 [facility] Comment on above: <200 mg/dL Desirable 200-240 mg/dL Borderline >240 mg/dL High Risk Eosinophils/100 WBC (Bld) 2.0 % 0-5 [facility] Glucose [Mass/Vol] 87 mg/dL 74-106 [facility] Neutrophils (Bld) [#/Vol] 4.3 10*3/uL 2.0-7.7 [facility] Neutrophils/100 WBC (Bld) 60.9 % 47-70 [facility] Potassium [Moles/Vol] 3.5 mmol/L 3.5-5.1 [facility] Protein [Mass/Vol] 5.9 g/dL 6.4-8.2 [facility] Sodium [Moles/Vol] 142 mmol/L 136-145 [facility] Triglyceride [Mass/Vol] 174 mg/dL <199 [facility] Comment on above: The drugs N-Acetylcy steine and Metamizole may falsely depress this assay.Serum Triglycerides Reference Interval Normal <150 mg/dL Borderline high 150 - 199 mg/dL High 200 - 499 mg/dL Very High > or = 500 mg/dL WBC (Bld) [#/Vol] 7.0 10*3/uL 4.4-11.0 [facility] Blood erythrocytes count (nu mber/volume)Ordered By: Dr. Leo on 09-18-2022 RBC (Bld) [#/Vol] 4.64 10*6/uL 4.6-6.2 [facility] Blood hemoglobin measurement (mass/volume)Ordered By: Dr. Leo on 09-18-2022 Hemoglobin (Bld) [Mass/Vol] 13.2 g/dL 13.0-16.5 [facility] Blood lymphocytes/100 leukoc ytesOrdered By: Dr. Leo on 09-18-2022 Lymphocytes/100 WBC (Bld) 26.1 % 19-41 [facility] Blood monocytes/100 leukocyt esOrdered By: Dr. Leo on 09-18-2022 Monocytes/100 WBC (Bld) 10.4 % 0-10 [facility] Blood platelet mean volumeOr dered By: Dr. Leo on 09-18-2022 Platelet mean volume (Bld) [Entitic vol] 12.3 fL 6.2-12.0 [facility] Determination of erythrocyte mean corpuscular volume (MCV)Ordered By: Dr. Leo on 09-18-2022 MCV (RBC) [Entitic vol] 90.1 fL 80-94 [facility] Hematocrit Auto (Bld) [Volum e fraction]Ordered By: Dr. Leo on 09-18-2022 Hematocrit (Bld) [Volume fraction] 41.8 % 40-54 [facility] Laboratory - Chemistry and C hemistry - challengeOrdered By: Dr. Leo on 09-18-2022 ALP [Catalytic activity/Vol] 113 U/L 45-117 [facility] ALT [Catalytic activity/Vol] 31 U/L 16-61 [facility] CO2 [Moles/Vol] 26.0 mmol/L 21.0-32.0 [facility] Globulin (S) [Mass/Vol] 3.0 g/dL 2.2-4.2 [facility] Urea nitrogen/Creatinine [Mass ratio] 13.4 mg/mg 10-20 [facility] Laboratory - Hematology and Cell countsOrdered By: Dr. Leo on 09-18-2022 Erythrocyte distribution width (RBC) [Entitic vol] 46.9 fL 35.1-43.9 [facility] Erythrocyte distribution width (RBC) [Ratio] 14.4 % 11.6-14.6 [facility] Immature granulocytes/100 WBC (Bld) 0.300 % 0.0-0.9 [facility] Comment on above: IG% - Immature Granu locytes (promyelocytes, myelocytes and metamyelocytes) > 1% indicates that a LEFT SHIFT is Present. MCH (RBC) [Entitic mass] 28.4 pg 27.0-32.0 [facility] Nucleated RBC/100 WBC (Bld) [Ratio] 0 % 0-5 [facility] MCHC Auto (RBC) [Mass/Vol]Or dered By: Dr. Leo on 09-18-2022 MCHC (RBC) [Mass/Vol] 31.6 g/dL 32-36 [facility] No Panel InformationOrdered By: Dr. Leo on 09-18-2022 Estimated Creatinine Clearance Calc 47.13 ml/min [facility] Estimated GFR (MDRD) Amer 71 mL/min >60 [facility] Comment on above: GFR Calc Estimated GFR (MDRD) Non-Af Amer 58 mL/min >60 [facility] Comment on above: Non- GFR Calc Thyroid Stimulating Hormone (TSH) 3.64 uIU/mL 0.358-3.74 [facility] Troponin I High Sensitivity 8 pg/mL 3.0-78.0 [facility] Comment on above: Please Note: [place] t Units and Gender Specific Reference Ranges. For more information see Policy Stat Procedure [place] High Sensitivity Troponin (TNIH) and attachments. Platelets bldOrdered By: Dr. Leo on 09-18-2022 Platelets (Bld) [#/Vol] 131 10*3/uL 150-450 [facility] Serum or plasma albumin francine urement (mass/volume)Ordered By: Dr. Leo on 09-18-2022 Albumin [Mass/Vol] 2.9 g/dL 3.2-5.0 [facility] Serum or plasma albumin/glob ulin mass ratioOrdered By: Dr. Leo on 09-18-2022 Albumin/Globulin [Mass ratio] 1.0 {ratio} 0.9-2.4 [facility] Serum or plasma calcium francine urement (mass/volume)Ordered By: Dr. Leo on 09-18-2022 Calcium [Mass/Vol] 7.6 mg/dL 8.5-10.1 [facility] Serum or plasma cholesterol in HDL measurement (mass/volume)Ordered By: Dr. Leo on 09-18-2022 Cholesterol in HDL [Mass/Vol] 36 mg/dL >40 [facility] Comment on above: The drugs N-Acetylcy steine and Metamizole may falsely depress this assay. Reference Range HDL <40 mg/dL Low HDL Cholesterol HDL >or= 60 mg/dL High HDL Cholesterol Serum or plasma cholesterol in VLDL measurement (mass/volume)Ordered By: Dr. Leo on 09-18-2022 Cholesterol in VLDL [Mass/Vol] 35 mg/dL 5-40 [facility] Serum or plasma creatinine m easurement (mass/volume)Ordered By: Dr. Leo on 09-18-2022 Creatinine [Mass/Vol] 1.27 mg/dL 0.70-1.30 [facility] Comment on above: The validity of the calculated GFR & GFRAA in patients over 70 years has not been determined. Clinical correlation is essential. Serum or plasma low density lipoprotein (LDL) cholesterol measurement (mass/volume)Ordered By: Dr. Leo on 09-18-2022 Cholesterol in LDL [Mass/Vol] 43 mg/dL 0-130 [facility] Serum or plasma urea nitroge n measurement (mass/volume)Ordered By: Dr. Leo on 09-18-2022 Urea nitrogen [Mass/Vol] 17 mg/dL 7-18 [facility] Thin prep Papanicolaou smear with manual screeningOrdered By: Dr. Leo on 09-18-2022 Thin prep Papanicolaou smear with manual screening 21 U/L 15-37 [facility] Thin prep Papanicolaou smear with manual screening 8 5-15 [facility] Whole blood hemoglobin A1c/t otal hemoglobin ratio (mass fraction)Ordered By: Dr. Leo on 09-18-2022 HbA1c (Bld) [Mass fraction] 7.7 % 3.8-5.6 [facility] Comment on above: Normal < 5.7 % Predi abetic 5.7 - 6.4 % Diabetic >or= 6.5 % Please note range changes. INR in Blood by Coagulation assayOrdered By: Dr. Hall on 09-17-2022 INR Coag (Bld) [Relative time] 0.9 {INR} [facility] Laboratory - Chemistry and C hemistry - challengeOrdered By: Dr. Leo on 09-17-2022 Magnesium [Mass/Vol] 2.3 mg/dL 1.6-2.6 [facility] Laboratory - CoagulationOrde red By: Dr. Hlal on 09-17-2022 aPTT Coag (Bld) [Time] 32.1 s 24.1-36.2 [facility] PT Coag (PPP) [Time] 12.3 s 11.7-14.9 [facility] Basophil percentageOrdered B y: Dr. Hay on 09-01-2022 Bilirubin [Mass/Vol] 0.70 mg/dL 0.20-1.00 [facility] Comment on above: For patients on eltr ombopag therapy, use of Dimension [place] TBIL is not recommended. Chloride [Moles/Vol] 112 mmol/L 98-107 [facility] Glucose [Mass/Vol] 151 mg/dL 74-106 [facility] Comment on above: Fasting Glucose resu lt greater than or equal to 126 mg/dL suggests DIABETES MELLITUS per A.D.A. criteria. Potassium [Moles/Vol] 3.9 mmol/L 3.5-5.1 [facility] Protein [Mass/Vol] 5.7 g/dL 6.4-8.2 [facility] Sodium [Moles/Vol] 142 mmol/L 136-145 [facility] WBC (Bld) [#/Vol] 4.7 10*3/uL 4.4-11.0 [facility] Blood erythrocytes count (nu mber/volume)Ordered By: Dr. Hay on 09-01-2022 RBC (Bld) [#/Vol] 4.60 10*6/uL 4.6-6.2 [facility] Blood hemoglobin measurement (mass/volume)Ordered By: Dr. Hay on 09-01-2022 Hemoglobin (Bld) [Mass/Vol] 13.0 g/dL 13.0-16.5 [facility] Blood platelet mean volumeOr dered By: Dr. Hay on 09-01-2022 Platelet mean volume (Bld) [Entitic vol] 12.8 fL 6.2-12.0 [facility] Determination of erythrocyte mean corpuscular volume (MCV)Ordered By: Dr. Hay on 09-01-2022 MCV (RBC) [Entitic vol] 89.1 fL 80-94 [facility] Hematocrit Auto (Bld) [Volum e fraction]Ordered By: Dr. Hay on 09-01-2022 Hematocrit (Bld) [Volume fraction] 41.0 % 40-54 [facility] Laboratory - Chemistry and C hemistry - challengeOrdered By: Dr. Hay on 09-01-2022 ALP [Catalytic activity/Vol] 149 U/L 45-117 [facility] ALT [Catalytic activity/Vol] 35 U/L 16-61 [facility] CO2 [Moles/Vol] 27.0 mmol/L 21.0-32.0 [facility] Globulin (S) [Mass/Vol] 2.9 g/dL 2.2-4.2 [facility] Urea nitrogen/Creatinine [Mass ratio] 15.8 mg/mg 10-20 [facility] Laboratory - Hematology and Cell countsOrdered By: Dr. Hay on 09-01-2022 Erythrocyte distribution width (RBC) [Entitic vol] 44.1 fL 35.1-43.9 [facility] Erythrocyte distribution width (RBC) [Ratio] 13.5 % 11.6-14.6 [facility] MCH (RBC) [Entitic mass] 28.3 pg 27.0-32.0 [facility] MCHC Auto (RBC) [Mass/Vol]Or dered By: Dr. Hay on 09-01-2022 MCHC (RBC) [Mass/Vol] 31.7 g/dL 32-36 [facility] No Panel InformationOrdered By: Dr. Hay on 09-01-2022 Estimated Creatinine Clearance Calc 46.51 ml/min [facility] Estimated GFR (MDRD) Amer 67 mL/min >60 [facility] Comment on above: GFR Calc Estimated GFR (MDRD) Non-Af Amer 55 mL/min >60 [facility] Comment on above: Non- GFR Calc Platelets bldOrdered By: Dr. Hay on 09-01-2022 Platelets (Bld) [#/Vol] 106 10*3/uL 150-450 [facility] Serum or plasma albumin francine urement (mass/volume)Ordered By: Dr. Hay on 09-01-2022 Albumin [Mass/Vol] 2.8 g/dL 3.2-5.0 [facility] Serum or plasma albumin/glob ulin mass ratioOrdered By: Dr. Hay on 09-01-2022 Albumin/Globulin [Mass ratio] 1.0 {ratio} 0.9-2.4 [facility] Serum or plasma calcium francine urement (mass/volume)Ordered By: Dr. Hay on 09-01-2022 Calcium [Mass/Vol] 8.0 mg/dL 8.5-10.1 [facility] Serum or plasma creatinine m easurement (mass/volume)Ordered By: Dr. Hay on 09-01-2022 Creatinine [Mass/Vol] 1.33 mg/dL 0.70-1.30 [facility] Comment on above: The validity of the calculated GFR & GFRAA in patients over 70 years has not been determined. Clinical correlation is essential. Serum or plasma urea nitroge n measurement (mass/volume)Ordered By: Dr. Hay on 09-01-2022 Urea nitrogen [Mass/Vol] 21 mg/dL 7-18 [facility] Thin prep Papanicolaou smear with manual screeningOrdered By: Dr. Hay on 09-01-2022 Thin prep Papanicolaou smear with manual screening 21 U/L 15-37 [facility] Thin prep Papanicolaou smear with manual screening 3 5-15 [facility] No Panel InformationOrdered By: Dr. Hay on 08-31-2022 Activated Clotting Time 275 sec 74-137 [facility] Basophil percentageOrdered B y: Dr. Hay on 08-19-2022 Chloride [Moles/Vol] 108 mmol/L 98-107 [facility] Glucose [Mass/Vol] 158 mg/dL 74-106 [facility] Comment on above: Fasting Glucose resu lt greater than or equal to 126 mg/dL suggests DIABETES MELLITUS per A.D.A. criteria. Potassium [Moles/Vol] 4.3 mmol/L 3.5-5.1 [facility] Sodium [Moles/Vol] 137 mmol/L 136-145 [facility] WBC (Bld) [#/Vol] 8.2 10*3/uL 4.4-11.0 [facility] Blood erythrocytes count (nu mber/volume)Ordered By: Dr. Hay on 08-19-2022 RBC (Bld) [#/Vol] 5.05 10*6/uL 4.6-6.2 [facility] Blood hemoglobin measurement (mass/volume)Ordered By: Dr. Hay on 08-19-2022 Hemoglobin (Bld) [Mass/Vol] 14.3 g/dL 13.0-16.5 [facility] Blood platelet mean volumeOr dered By: Dr. Hay on 08-19-2022 Platelet mean volume (Bld) [Entitic vol] 12.5 fL 6.2-12.0 [facility] Determination of erythrocyte mean corpuscular volume (MCV)Ordered By: Dr. Hay on 08-19-2022 MCV (RBC) [Entitic vol] 88.3 fL 80-94 [facility] Hematocrit Auto (Bld) [Volum e fraction]Ordered By: Dr. Hay on 08-19-2022 Hematocrit (Bld) [Volume fraction] 44.6 % 40-54 [facility] INR in Blood by Coagulation assayOrdered By: Dr. Hay on 08-19-2022 INR Coag (Bld) [Relative time] 1.1 {INR} [facility] Laboratory - Chemistry and C hemistry - challengeOrdered By: Dr. Hay on 08-19-2022 CO2 [Moles/Vol] 25.0 mmol/L 21.0-32.0 [facility] Urea nitrogen/Creatinine [Mass ratio] 12.0 mg/mg 10-20 [facility] Laboratory - CoagulationOrde red By: Dr. Hay on 08-19-2022 aPTT Coag (Bld) [Time] 30.9 s 24.1-36.2 [facility] PT Coag (PPP) [Time] 13.4 s 11.7-14.9 [facility] Laboratory - Hematology and Cell countsOrdered By: Dr. Hay on 08-19-2022 Erythrocyte distribution width (RBC) [Entitic vol] 44.8 fL 35.1-43.9 [facility] Erythrocyte distribution width (RBC) [Ratio] 13.9 % 11.6-14.6 [facility] MCH (RBC) [Entitic mass] 28.3 pg 27.0-32.0 [facility] MCHC Auto (RBC) [Mass/Vol]Or dered By: Dr. Hay on 08-19-2022 MCHC (RBC) [Mass/Vol] 32.1 g/dL 32-36 [facility] No Panel InformationOrdered By: Dr. Hay on 08-19-2022 Estimated GFR (MDRD) Amer 72 mL/min >60 [facility] Comment on above: GFR Calc Estimated GFR (MDRD) Non-Af Amer 60 mL/min >60 [facility] Comment on above: Non- GFR Calc Platelets bldOrdered By: Dr. Hay on 08-19-2022 Platelets (Bld) [#/Vol] 151 10*3/uL 150-450 [facility] Serum or plasma calcium francine urement (mass/volume)Ordered By: Dr. Hay on 08-19-2022 Calcium [Mass/Vol] 9.0 mg/dL 8.5-10.1 [facility] Serum or plasma creatinine m easurement (mass/volume)Ordered By: Dr. Hay on 08-19-2022 Creatinine [Mass/Vol] 1.25 mg/dL 0.70-1.30 [facility] Comment on above: The validity of the calculated GFR & GFRAA in patients over 70 years has not been determined. Clinical correlation is essential. Serum or plasma urea nitroge n measurement (mass/volume)Ordered By: Dr. Hay on 08-19-2022 Urea nitrogen [Mass/Vol] 15 mg/dL 7-18 [facility] Thin prep Papanicolaou smear with manual screeningOrdered By: Dr. Hay on 08-19-2022 Thin prep Papanicolaou smear with manual screening 4 5-15 [facility] Basophil percentageOrdered B y: Dr. Rodriguez on 06-11-2022 Chloride [Moles/Vol] 102 mmol/L 98-107 [facility] Glucose [Mass/Vol] 274 mg/dL 74-106 [facility] Comment on above: Glucose result great er than or equal to 200 mg/dLsuggests DIABETES MELLITUS per A.D.A. criteria. Potassium [Moles/Vol] 4.3 mmol/L 3.5-5.1 [facility] Sodium [Moles/Vol] 136 mmol/L 136-145 [facility] Laboratory - Chemistry and C hemistry - challengeOrdered By: Dr. Rodriguez on 06-11-2022 CO2 [Moles/Vol] 24.0 mmol/L 21.0-32.0 [facility] Magnesium [Mass/Vol] 2.2 mg/dL 1.6-2.6 [facility] Urea nitrogen/Creatinine [Mass ratio] 15.7 mg/mg 10-20 [facility] No Panel InformationOrdered By: Dr. Rodriguez on 06-11-2022 Estimated GFR (MDRD) Amer 67 mL/min >60 [facility] Comment on above: GFR Calc Estimated GFR (MDRD) Non-Af Amer 55 mL/min >60 [facility] Comment on above: Non- GFR Calc Serum or plasma calcium francine urement (mass/volume)Ordered By: Dr. Rodriguez on 06-11-2022 Calcium [Mass/Vol] 8.7 mg/dL 8.5-10.1 [facility] Serum or plasma creatinine m easurement (mass/volume)Ordered By: Dr. Rodriguez on 06-11-2022 Creatinine [Mass/Vol] 1.34 mg/dL 0.70-1.30 [facility] Comment on above: The validity of the calculated GFR & GFRAA in patients over 70 years has not been determined. Clinical correlation is essential. Serum or plasma urea nitroge n measurement (mass/volume)Ordered By: Dr. Rodriguez on 06-11-2022 Urea nitrogen [Mass/Vol] 21 mg/dL 7-18 [facility] Thin prep Papanicolaou smear with manual screeningOrdered By: Dr. Rodriguez on 06-11-2022 Thin prep Papanicolaou smear with manual screening 10 5-15 [facility] Absolute lymphocyte countOrd ered By: Luz Elena Mckeon on 04-14-2022 Lymphocytes Auto (Unsp spec) [#/Vol] 1.60 10*3/uL 0.83-4.51 [facility] Basophil percentageOrdered B y: Luz Elena Mckeon on 04-14-2022 Basophils/100 WBC (Bld) 0.3 % 0-1 [facility] Chloride [Moles/Vol] 106 mmol/L 98-107 [facility] Eosinophils/100 WBC (Bld) 1.5 % 0-5 [facility] Glucose [Mass/Vol] 211 mg/dL 74-106 [facility] Comment on above: Glucose result great er than or equal to 200 mg/dLsuggests DIABETES MELLITUS per A.D.A. criteria. Neutrophils (Bld) [#/Vol] 3.8 10*3/uL 2.0-7.7 [facility] Neutrophils/100 WBC (Bld) 61.3 % 47-70 [facility] Potassium [Moles/Vol] 4.4 mmol/L 3.5-5.1 [facility] Sodium [Moles/Vol] 136 mmol/L 136-145 [facility] WBC (Bld) [#/Vol] 6.2 10*3/uL 4.4-11.0 [facility] Blood erythrocytes count (nu mber/volume)Ordered By: Luz Elena Mckeon on 04-14-2022 RBC (Bld) [#/Vol] 4.87 10*6/uL 4.6-6.2 [facility] Blood hemoglobin measurement (mass/volume)Ordered By: Luz Elena Mckeon on 04-14-2022 Hemoglobin (Bld) [Mass/Vol] 14.1 g/dL 13.0-16.5 [facility] Blood lymphocytes/100 leukoc ytesOrdered By: Luz Elena Mckeon on 04-14-2022 Lymphocytes/100 WBC (Bld) 25.8 % 19-41 [facility] Blood monocytes/100 leukocyt esOrdered By: Luz Elena Mckeon on 04-14-2022 Monocytes/100 WBC (Bld) 10.8 % 0-10 [facility] Blood platelet mean volumeOr dered By: Luz Elena Mckeon on 04-14-2022 Platelet mean volume (Bld) [Entitic vol] 12.8 fL 6.2-12.0 [facility] Determination of erythrocyte mean corpuscular volume (MCV)Ordered By: Luz Elena Mckeon on 04-14-2022 MCV (RBC) [Entitic vol] 88.1 fL 80-94 [facility] Hematocrit Auto (Bld) [Volum e fraction]Ordered By: Luz Elena Mckeon on 04-14-2022 Hematocrit (Bld) [Volume fraction] 42.9 % 40-54 [facility] Laboratory - Chemistry and C hemistry - challengeOrdered By: Luz Elena Mckeon on 04-14-2022 CO2 [Moles/Vol] 25.0 mmol/L 21.0-32.0 [facility] Natriuretic peptide B (Bld) [Mass/Vol] 54.2 pg/mL 0-100 [facility] Urea nitrogen/Creatinine [Mass ratio] 13.3 mg/mg 10-20 [facility] Laboratory - Hematology and Cell countsOrdered By: Luz Elena Mckeon on 04-14-2022 Erythrocyte distribution width (RBC) [Entitic vol] 44.7 fL 35.1-43.9 [facility] Erythrocyte distribution width (RBC) [Ratio] 13.9 % 11.6-14.6 [facility] Immature granulocytes/100 WBC (Bld) 0.300 % 0.0-0.9 [facility] Comment on above: IG% - Immature Granu locytes (promyelocytes, myelocytes and metamyelocytes) > 1% indicates that a LEFT SHIFT is Present. MCH (RBC) [Entitic mass] 29.0 pg 27.0-32.0 [facility] Nucleated RBC/100 WBC (Bld) [Ratio] 0 % 0-5 [facility] [facility] MCHC Auto (RBC) [Mass/Vol]Or dered By: Luz Elena Mckeon on 04-14-2022 MCHC (RBC) [Mass/Vol] 32.9 g/dL 32-36 [facility] No Panel InformationOrdered By: Luz Elena Mckeon on 04-14-2022 Estimated GFR (MDRD) Amer 81 mL/min >60 [facility] Comment on above: GFR Calc Estimated GFR (MDRD) Non-Af Amer 67 mL/min >60 [facility] Comment on above: Non- GFR Calc Platelets bldOrdered By: Loco Mckeon on 04-14-2022 Platelets (Bld) [#/Vol] 150 10*3/uL 150-450 [facility] Serum or plasma calcium francine urement (mass/volume)Ordered By: Luz Elena Mckeon on 04-14-2022 Calcium [Mass/Vol] 8.4 mg/dL 8.5-10.1 [facility] Serum or plasma creatinine m easurement (mass/volume)Ordered By: Luz Elena Mckeon on 04-14-2022 Creatinine [Mass/Vol] 1.13 mg/dL 0.70-1.30 [facility] Comment on above: The validity of the calculated GFR & GFRAA in patients over 70 years has not been determined. Clinical correlation is essential. Serum or plasma urea nitroge n measurement (mass/volume)Ordered By: Luz Elena Mckeon on 04-14-2022 Urea nitrogen [Mass/Vol] 15 mg/dL 7-18 [facility] Thin prep Papanicolaou smear with manual screeningOrdered By: Luz Elena Mckeon on 04-14-2022 Thin prep Papanicolaou smear with manual screening 5 5-15 [facility] Laboratory - Microbiology an d Antimicrobial susceptibilityon 03-27-2022 SARS-CoV-2 (COVID-19) RNA REAGAN+probe Ql (Unsp spec) Detected [facility] No Panel Informationon 03-27 Influenza Types A,B Rapid (Clinic) Not detected [facility] Absolute lymphocyte counton 11-21-2021 Lymphocytes Auto (Unsp spec) [#/Vol] 1.23 10*3/uL 0.83-4.51 [facility] Work Phone: Basophil percentageon 2021 Basophils/100 WBC (Bld) 0.3 % 0-1 [facility] Work Phone: Chloride [Moles/Vol] 106 mmol/L 98-107 [facility] Work Phone: [phone] Eosinophils/100 WBC (Bld) 1.2 % 0-5 [facility] Work Phone: [phone] Glucose [Mass/Vol] 166 mg/dL 74-106 [facility] Work Phone: Comment on above: Fasting Glucose resu lt greater than or equal to 126 mg/dL suggests DIABETES MELLITUS per A.D.A. criteria. Neutrophils (Bld) [#/Vol] 4.7 10*3/uL 2.0-7.7 [facility] Work Phone: Neutrophils/100 WBC (Bld) 69.8 % 47-70 [facility] Work Phone: [phone] Potassium [Moles/Vol] 4.2 mmol/L 3.5-5.1 [facility] Work Phone: Sodium [Moles/Vol] 140 mmol/L 136-145 [facility] Work Phone: WBC (Bld) [#/Vol] 6.7 10*3/uL 4.4-11.0 [facility] Work Phone: [phone] Blood erythrocytes count (nu mber/volume)on 11-21-2021 RBC (Bld) [#/Vol] 5.06 10*6/uL 4.6-6.2 [facility] Work Phone: Blood hemoglobin measurement (mass/volume)on 11-21-2021 Hemoglobin (Bld) [Mass/Vol] 14.3 g/dL 13.0-16.5 [facility] Work Phone: Blood lymphocytes/100 leukoc yteson 11-21-2021 Lymphocytes/100 WBC (Bld) 18.4 % 19-41 [facility] Work Phone: Blood monocytes/100 leukocyt eson 11-21-2021 Monocytes/100 WBC (Bld) 9.9 % 0-10 [facility] Work Phone: Blood platelet mean volumeon 11-21-2021 Platelet mean volume (Bld) [Entitic vol] 12.4 fL 6.2-12.0 [facility] Work Phone: Determination of erythrocyte mean corpuscular volume (MCV)on 11-21-2021 MCV (RBC) [Entitic vol] 89.1 fL 80-94 [facility] Work Phone: Hematocrit Auto (Bld) [Volum e fraction]on 11-21-2021 Hematocrit (Bld) [Volume fraction] 45.1 % 40-54 [facility] Work Phone: Laboratory - Chemistry and C hemistry - challengeon 11-21-2021 CO2 [Moles/Vol] 27.0 mmol/L 21.0-32.0 [facility] Work Phone: Natriuretic peptide B (Bld) [Mass/Vol] 60.9 pg/mL 0-100 [facility] Work Phone: Urea nitrogen/Creatinine [Mass ratio] 12.9 mg/mg 10-20 [facility] Work Phone: Laboratory - Hematology and Cell countson 11-21-2021 Erythrocyte distribution width (RBC) [Entitic vol] 45.1 fL 35.1-43.9 [facility] Work Phone: Erythrocyte distribution width (RBC) [Ratio] 14.0 % 11.6-14.6 [facility] Work Phone: Immature granulocytes/100 WBC (Bld) 0.400 % 0.0-0.9 [facility] Work Phone: Comment on above: IG% - Immature Granu locytes (promyelocytes, myelocytes and metamyelocytes) > 1% indicates that a LEFT SHIFT is Present. MCH (RBC) [Entitic mass] 28.3 pg 27.0-32.0 [facility] Work Phone: Nucleated RBC/100 WBC (Bld) [Ratio] 0 % 0-5 [facility] Work Phone: MCHC Auto (RBC) [Mass/Vol]on 11-21-2021 MCHC (RBC) [Mass/Vol] 31.7 g/dL 32-36 [facility] Work Phone: No Panel Informationon 11-21 Estimated GFR (MDRD) Amer 63 mL/min >60 [facility] Work Phone: Comment on above: GFR Calc Estimated GFR (MDRD) Non-Af Amer 52 mL/min >60 [facility] Work Phone: Comment on above: Non- GFR Calc Platelets bldon 11-21-2021 Platelets (Bld) [#/Vol] 135 10*3/uL 150-450 [facility] Work Phone: Serum or plasma calcium francine urement (mass/volume)on 11-21-2021 Calcium [Mass/Vol] 8.9 mg/dL 8.5-10.1 [facility] Work Phone: Serum or plasma creatinine m easurement (mass/volume)on 11-21-2021 Creatinine [Mass/Vol] 1.40 mg/dL 0.70-1.30 [facility] Work Phone: Comment on above: The validity of the calculated GFR & GFRAA in patients over 70 years has not been determined. Clinical correlation is essential. Serum or plasma urea nitroge n measurement (mass/volume)on 11-21-2021 Urea nitrogen [Mass/Vol] 18 mg/dL 7-18 [facility] Work Phone: [phone] Thin prep Papanicolaou smear with manual screeningon 11-21-2021 Thin prep Papanicolaou smear with manual screening 7 5-15 [facility] Work Phone: [phone] Absolute lymphocyte counton 11-16-2021 Lymphocytes Auto (Unsp spec) [#/Vol] 2.06 10*3/uL 0.83-4.51 [facility] Work Phone: Basophil percentageon 2021 Basophils/100 WBC (Bld) 0.3 % 0-1 [facility] Work Phone: [phone] Chloride [Moles/Vol] 104 mmol/L 98-107 [facility] Work Phone: [phone] Eosinophils/100 WBC (Bld) 1.4 % 0-5 [facility] Work Phone: [phone] Glucose [Mass/Vol] 170 mg/dL 74-106 [facility] Work Phone: [phone] Comment on above: Fasting Glucose resu lt greater than or equal to 126 mg/dL suggests DIABETES MELLITUS per A.D.A. criteria. Neutrophils (Bld) [#/Vol] 5.0 10*3/uL 2.0-7.7 [facility] Work Phone: [phone] Neutrophils/100 WBC (Bld) 62.3 % 47-70 [facility] Work Phone: [phone] Potassium [Moles/Vol] 4.4 mmol/L 3.5-5.1 [facility] Work Phone: [phone] Comment on above: Slight Hemolysis, Re sult may be falsely increased. Sodium [Moles/Vol] 137 mmol/L 136-145 [facility] Work Phone: [phone] WBC (Bld) [#/Vol] 7.9 10*3/uL 4.4-11.0 [facility] Work Phone: [phone] Blood erythrocytes count (nu mber/volume)on 11-16-2021 RBC (Bld) [#/Vol] 5.42 10*6/uL 4.6-6.2 [facility]: Blood hemoglobin measurement (mass/volume)on 11-16-2021 Hemoglobin (Bld) [Mass/Vol] 15.6 g/dL 13.0-16.5 [facility] Work Phone: Blood lymphocytes/100 leukoc yteson 11-16-2021 Lymphocytes/100 WBC (Bld) 26.0 % 19-41 [facility] Work Phone: Blood monocytes/100 leukocyt eson 11-16-2021 Monocytes/100 WBC (Bld) 9.6 % 0-10 [facility] Work Phone: Blood platelet mean volumeon 11-16-2021 Platelet mean volume (Bld) [Entitic vol] 12.9 fL 6.2-12.0 [facility] Work Phone: Determination of erythrocyte mean corpuscular volume (MCV)on 11-16-2021 MCV (RBC) [Entitic vol] 89.3 fL 80-94 [facility] Work Phone: Hematocrit Auto (Bld) [Volum e fraction]on 11-16-2021 Hematocrit (Bld) [Volume fraction] 48.4 % 40-54 [facility] Work Phone: Laboratory - Chemistry and C hemistry - challengeon 11-16-2021 CO2 [Moles/Vol] 27.0 mmol/L 21.0-32.0 [facility] Work Phone: Urea nitrogen/Creatinine [Mass ratio] 11.6 mg/mg 10-20 [facility] Work Phone: Laboratory - Hematology and Cell countson 11-16-2021 Erythrocyte distribution width (RBC) [Entitic vol] 44.5 fL 35.1-43.9 [facility] Work Phone: Erythrocyte distribution width (RBC) [Ratio] 13.8 % 11.6-14.6 [facility] Work Phone: Immature granulocytes/100 WBC (Bld) 0.400 % 0.0-0.9 [facility] Work Phone: Comment on above: IG% - Immature Granu locytes (promyelocytes, myelocytes and metamyelocytes) > 1% indicates that a LEFT SHIFT is Present. MCH (RBC) [Entitic mass] 28.8 pg 27.0-32.0 [facility] Work Phone: Nucleated RBC/100 WBC (Bld) [Ratio] 0 % 0-5 [facility] Work Phone: MCHC Auto (RBC) [Mass/Vol]on 11-16-2021 MCHC (RBC) [Mass/Vol] 32.2 g/dL 32-36 [facility] Work Phone: No Panel Informationon 11-16 Troponin I High Sensitivity 7 pg/mL 3.0-78.0 [facility] Work Phone: Comment on above: Please Note: [place] Units and Gender Specific Reference Ranges. For more information see Policy Stat Procedure [place] High Sensitivity Troponin (TNIH) and attachments. Estimated Creatinine Clearance Calc 45.54 ml/min [facility] Work Phone: Estimated GFR (MDRD) Amer 64 mL/min >60 [facility] Work Phone: Comment on above: GFR Calc Estimated GFR (MDRD) Non-Af Amer 53 mL/min >60 [facility] Work Phone: Comment on above: Non- GFR Calc Platelets bldon 11-16-2021 Platelets (Bld) [#/Vol] 142 10*3/uL 150-450 [facility] Work Phone: Serum or plasma calcium francine urement (mass/volume)on 11-16-2021 Calcium [Mass/Vol] 9.2 mg/dL 8.5-10.1 [facility] Work Phone: Serum or plasma creatinine m easurement (mass/volume)on 11-16-2021 Creatinine [Mass/Vol] 1.38 mg/dL 0.70-1.30 [facility] Work Phone: Comment on above: The validity of the calculated GFR & GFRAA in patients over 70 years has not been determined. Clinical correlation is essential. Serum or plasma urea nitroge n measurement (mass/volume)on 11-16-2021 Urea nitrogen [Mass/Vol] 16 mg/dL 7-18 [facility] Work Phone: Thin prep Papanicolaou smear with manual screeningon 11-16-2021 Thin prep Papanicolaou smear with manual screening 6 5-15 [facility] Work Phone: Basophil percentageon 2021 Chloride [Moles/Vol] 105 mmol/L 98-107 [facility] Work Phone: Glucose [Mass/Vol] 246 mg/dL 74-106 [facility] Work Phone: Comment on above: Glucose result great er than or equal to 200 mg/dLsuggests DIABETES MELLITUS per A.D.A. criteria. Potassium [Moles/Vol] 4.2 mmol/L 3.5-5.1 [facility] Work Phone: Sodium [Moles/Vol] 137 mmol/L 136-145 [facility] Work Phone: Laboratory - Chemistry and C hemistry - challengeon 10-28-2021 CO2 [Moles/Vol] 24.0 mmol/L 21.0-32.0 [facility] Work Phone: Urea nitrogen/Creatinine [Mass ratio] 15.6 mg/mg 10-20 [facility] Work Phone: No Panel Informationon 10-28 Estimated GFR (MDRD) Amer 74 mL/min >60 [facility] Work Phone: Comment on above: GFR Calc Estimated GFR (MDRD) Non-Af Amer 61 mL/min >60 [facility] Work Phone: Comment on above: Non- GFR Calc Serum or plasma calcium francine urement (mass/volume)on 10-28-2021 Calcium [Mass/Vol] 8.9 mg/dL 8.5-10.1 [facility] Work Phone: Serum or plasma creatinine m easurement (mass/volume)on 10-28-2021 Creatinine [Mass/Vol] 1.22 mg/dL 0.70-1.30 [facility] Work Phone: Comment on above: The validity of the calculated GFR & GFRAA in patients over 70 years has not been determined. Clinical correlation is essential. Serum or plasma urea nitroge n measurement (mass/volume)on 10-28-2021 Urea nitrogen [Mass/Vol] 19 mg/dL 7-18 [facility] Work Phone: Thin prep Papanicolaou smear with manual screeningon 10-28-2021 Thin prep Papanicolaou smear with manual screening 8 5-15 [facility] Work Phone: Whole blood hemoglobin A1c/t otal hemoglobin ratio (mass fraction)on 10-28-2021 HbA1c (Bld) [Mass fraction] 7.7 % 3.8-5.6 [facility] Work Phone: Comment on above: Normal < 5.7 % Predi abetic 5.7 - 6.4 % Diabetic >or= 6.5 % Please note range changes. Absolute lymphocyte counton 09-16-2021 Lymphocytes Auto (Unsp spec) [#/Vol] 1.24 10*3/uL 0.83-4.51 [facility] Work Phone: Basophil percentageon 2021 Basophils/100 WBC (Bld) 0.5 % 0-1 [facility] Work Phone: Chloride [Moles/Vol] 107 mmol/L 98-107 [facility] Work Phone: Eosinophils/100 WBC (Bld) 1.7 % 0-5 [facility] Work Phone: Glucose [Mass/Vol] 134 mg/dL 74-106 [facility] Work Phone: Comment on above: Fasting Glucose resu lt greater than or equal to 126 mg/dL suggests DIABETES MELLITUS per A.D.A. criteria. Neutrophils (Bld) [#/Vol] 4.4 10*3/uL 2.0-7.7 [facility] Work Phone: Neutrophils/100 WBC (Bld) 68.0 % 47-70 [facility] Work Phone: Potassium [Moles/Vol] 4.3 mmol/L 3.5-5.1 [facility] Work Phone: Sodium [Moles/Vol] 139 mmol/L 136-145 [facility] Work Phone: [phone] WBC (Bld) [#/Vol] 6.4 10*3/uL 4.4-11.0 [facility] Work Phone: Blood erythrocytes count (nu mber/volume)on 09-16-2021 RBC (Bld) [#/Vol] 4.84 10*6/uL 4.6-6.2 [facility] Work Phone: Blood hemoglobin measurement (mass/volume)on 09-16-2021 Hemoglobin (Bld) [Mass/Vol] 14.1 g/dL 13.0-16.5 [facility] Work Phone: Blood lymphocytes/100 leukoc yteson 09-16-2021 Lymphocytes/100 WBC (Bld) 19.3 % 19-41 [facility] Work Phone: Blood monocytes/100 leukocyt eson 09-16-2021 Monocytes/100 WBC (Bld) 10.0 % 0-10 [facility] Work Phone: Blood platelet mean volumeon 09-16-2021 Platelet mean volume (Bld) [Entitic vol] 12.7 fL 6.2-12.0 [facility] Work Phone: Determination of erythrocyte mean corpuscular volume (MCV)on 09-16-2021 MCV (RBC) [Entitic vol] 90.1 fL 80-94 [facility] Work Phone: Hematocrit Auto (Bld) [Volum e fraction]on 09-16-2021 Hematocrit (Bld) [Volume fraction] 43.6 % 40-54 [facility] Work Phone: Laboratory - Chemistry and C hemistry - challengeon 09-16-2021 CO2 [Moles/Vol] 27.0 mmol/L 21.0-32.0 [facility] Work Phone: Natriuretic peptide B (Bld) [Mass/Vol] 80.9 pg/mL 0-100 [facility] Work Phone: Urea nitrogen/Creatinine [Mass ratio] 13.7 mg/mg 10-20 [facility] Work Phone: Laboratory - Hematology and Cell countson 09-16-2021 Erythrocyte distribution width (RBC) [Entitic vol] 46.2 fL 35.1-43.9 [facility] Work Phone: Erythrocyte distribution width (RBC) [Ratio] 13.9 % 11.6-14.6 [facility] Work Phone: Immature granulocytes/100 WBC (Bld) 0.500 % 0.0-0.9 [facility] Work Phone: Comment on above: IG% - Immature Granu locytes (promyelocytes, myelocytes and metamyelocytes) > 1% indicates that a LEFT SHIFT is Present. MCH (RBC) [Entitic mass] 29.1 pg 27.0-32.0 [facility] Work Phone: Nucleated RBC/100 WBC (Bld) [Ratio] 0 % 0-5 [facility] Work Phone: MCHC Auto (RBC) [Mass/Vol]on 09-16-2021 MCHC (RBC) [Mass/Vol] 32.3 g/dL 32-36 [facility] Work Phone: No Panel Informationon 09-16 Estimated GFR (MDRD) Amer 73 mL/min >60 [facility] Work Phone: Comment on above: GFR Calc Estimated GFR (MDRD) Non-Af Amer 60 mL/min >60 [facility] Work Phone: Comment on above: Non- GFR Calc Platelets bldon 09-16-2021 Platelets (Bld) [#/Vol] 133 10*3/uL 150-450 [facility] Work Phone: Serum or plasma calcium francine urement (mass/volume)on 09-16-2021 Calcium [Mass/Vol] 9.0 mg/dL 8.5-10.1 [facility] Work Phone: Serum or plasma creatinine m easurement (mass/volume)on 09-16-2021 Creatinine [Mass/Vol] 1.24 mg/dL 0.70-1.30 [facility] Work Phone: Comment on above: The validity of the calculated GFR & GFRAA in patients over 70 years has not been determined. Clinical correlation is essential. Serum or plasma urea nitroge n measurement (mass/volume)on 09-16-2021 Urea nitrogen [Mass/Vol] 17 mg/dL 7-18 [facility] Work Phone: Thin prep Papanicolaou smear with manual screeningon 09-16-2021 Thin prep Papanicolaou smear with manual screening 5 5-15 [facility] Work Phone: Absolute lymphocyte counton 06-10-2021 Lymphocytes Auto (Unsp spec) [#/Vol] 1.00 10*3/uL 0.83-4.51 [facility] Work Phone: Basophil percentageon 2021 Basophils/100 WBC (Bld) 0.3 % 0-1 [facility] Work Phone: Chloride [Moles/Vol] 107 mmol/L 98-107 [facility] Work Phone: Eosinophils/100 WBC (Bld) 1.7 % 0-5 [facility] Work Phone: Glucose [Mass/Vol] 150 mg/dL 74-106 [facility] Work Phone: Comment on above: Fasting Glucose resu lt greater than or equal to 126 mg/dL suggests DIABETES MELLITUS per A.D.A. criteria. Neutrophils (Bld) [#/Vol] 4.9 10*3/uL 2.0-7.7 [facility] Work Phone: Neutrophils/100 WBC (Bld) 73.8 % 47-70 [facility] Work Phone: Potassium [Moles/Vol] 5.6 mmol/L 3.5-5.1 [facility] Work Phone: Comment on above: Moderate Hemolysis, Result may be falsely increased. Sodium [Moles/Vol] 139 mmol/L 136-145 [facility] Work Phone: WBC (Bld) [#/Vol] 6.7 10*3/uL 4.4-11.0 [facility] Work Phone: Blood erythrocytes count (nu mber/volume)on 06-10-2021 RBC (Bld) [#/Vol] 5.17 10*6/uL 4.6-6.2 [facility] Work Phone: Blood hemoglobin measurement (mass/volume)on 06-10-2021 Hemoglobin (Bld) [Mass/Vol] 15.5 g/dL 13.0-16.5 [facility] Work Phone: Blood lymphocytes/100 leukoc yteson 06-10-2021 Lymphocytes/100 WBC (Bld) 15.0 % 19-41 [facility] Work Phone: Blood monocytes/100 leukocyt eson 06-10-2021 Monocytes/100 WBC (Bld) 8.7 % 0-10 [facility] Work Phone: Blood platelet mean volumeon 06-10-2021 Platelet mean volume (Bld) [Entitic vol] 12.7 fL 6.2-12.0 [facility] Work Phone: Determination of erythrocyte mean corpuscular volume (MCV)on 06-10-2021 MCV (RBC) [Entitic vol] 89.6 fL 80-94 [facility] Work Phone: Hematocrit Auto (Bld) [Volum e fraction]on 06-10-2021 Hematocrit (Bld) [Volume fraction] 46.3 % 40-54 [facility] Work Phone: Laboratory - Chemistry and C hemistry - challengeon 06-10-2021 CO2 [Moles/Vol] 28.0 mmol/L 21.0-32.0 [facility] Work Phone: Urea nitrogen/Creatinine [Mass ratio] 12.7 mg/mg 10-20 [facility] Work Phone: Laboratory - Hematology and Cell countson 06-10-2021 Erythrocyte distribution width (RBC) [Entitic vol] 45.9 fL 35.1-43.9 [facility] Work Phone: Erythrocyte distribution width (RBC) [Ratio] 14.1 % 11.6-14.6 [facility] Work Phone: Immature granulocytes/100 WBC (Bld) 0.500 % 0.0-0.9 [facility] Work Phone: Comment on above: IG% - Immature Granu locytes (promyelocytes, myelocytes and metamyelocytes) > 1% indicates that a LEFT SHIFT is Present. MCH (RBC) [Entitic mass] 30.0 pg 27.0-32.0 [facility] Work Phone: Nucleated RBC/100 WBC (Bld) [Ratio] 0 % 0-5 [facility] Work Phone: MCHC Auto (RBC) [Mass/Vol]on 06-10-2021 MCHC (RBC) [Mass/Vol] 33.5 g/dL 32-36 [facility] Work Phone: No Panel Informationon 06-10 Troponin I High Sensitivity 10 pg/mL 3.0-78.0 [facility] Work Phone: Comment on above: Please Note: [place] t Units and Gender Specific Reference Ranges. For more information see Policy Stat Procedure [place] High Sensitivity Troponin (TNIH) and attachments. Estimated Creatinine Clearance Calc 47.63 ml/min [facility] Work Phone: Estimated GFR (MDRD) Amer 67 mL/min >60 [facility] Work Phone: Comment on above: GFR Calc Estimated GFR (MDRD) Non-Af Amer 55 mL/min >60 [facility] Work Phone: Comment on above: Non- GFR Calc Platelets bldon 06-10-2021 Platelets (Bld) [#/Vol] 146 10*3/uL 150-450 [facility] Work Phone: Serum or plasma calcium francine urement (mass/volume)on 06-10-2021 Calcium [Mass/Vol] 8.7 mg/dL 8.5-10.1 [facility] Work Phone: Serum or plasma creatinine m easurement (mass/volume)on 06-10-2021 Creatinine [Mass/Vol] 1.34 mg/dL 0.70-1.30 [facility] Work Phone: Comment on above: The validity of the calculated GFR & GFRAA in patients over 70 years has not been determined. Clinical correlation is essential. Serum or plasma urea nitroge n measurement (mass/volume)on 06-10-2021 Urea nitrogen [Mass/Vol] 17 mg/dL 7-18 [facility] Work Phone: Thin prep Papanicolaou smear with manual screeningon 06-10-2021 Thin prep Papanicolaou smear with manual screening 4 5-15 [facility] Work Phone: Absolute lymphocyte counton 01-17-2022 Lymphocytes Auto (Unsp spec) [#/Vol] 1.72 10*3/uL 0.83-4.51 [facility] Work Phone: Basophil percentageon 2021 Basophils/100 WBC (Bld) 0.4 % 0-1 [facility] Work Phone: [phone] Bilirubin [Mass/Vol] 1.20 mg/dL 0.20-1.00 [facility] Work Phone: Comment on above: For patients on eltr ombopag therapy, use of Dimension [place] TBIL is not recommended. Chloride [Moles/Vol] 106 mmol/L 98-107 [facility] Work Phone: Eosinophils/100 WBC (Bld) 1.2 % 0-5 [facility] Work Phone: Glucose [Mass/Vol] 182 mg/dL 74-106 [facility] Work Phone: Comment on above: Fasting Glucose resu lt greater than or equal to 126 mg/dL suggests DIABETES MELLITUS per A.D.A. criteria. Neutrophils (Bld) [#/Vol] 6.6 10*3/uL 2.0-7.7 [facility] Work Phone: Neutrophils/100 WBC (Bld) 70.5 % 47-70 [facility] Work Phone: Potassium [Moles/Vol] 3.8 mmol/L 3.5-5.1 [facility] Work Phone: [phone] Protein [Mass/Vol] 7.9 g/dL 6.4-8.2 [facility] Work Phone: [phone] Sodium [Moles/Vol] 139 mmol/L 136-145 [facility] Work Phone: [phone] WBC (Bld) [#/Vol] 9.4 10*3/uL 4.4-11.0 [facility] Work Phone: Basophil percentage 0 SEEN /hpf [facility] Work Phone: Bilirubin Test strip Ql (U)o n 05-19-2021 Bilirubin Ql (U) Negative Negative [facility] Work Phone: Blood erythrocytes count (nu mber/volume)on 05-19-2021 RBC (Bld) [#/Vol] 5.30 10*6/uL 4.6-6.2 [facility] Work Phone: Blood hemoglobin measurement (mass/volume)on 05-19-2021 Hemoglobin (Bld) [Mass/Vol] 15.3 g/dL 13.0-16.5 [facility] Work Phone: Blood lymphocytes/100 leukoc yteson 05-19-2021 Lymphocytes/100 WBC (Bld) 18.3 % 19-41 [facility] Work Phone: Blood monocytes/100 leukocyt eson 05-19-2021 Monocytes/100 WBC (Bld) 9.3 % 0-10 [facility] Work Phone: Blood platelet mean volumeon 05-19-2021 Platelet mean volume (Bld) [Entitic vol] 12.5 fL 6.2-12.0 [facility] Work Phone: Determination of erythrocyte mean corpuscular volume (MCV)on 05-19-2021 MCV (RBC) [Entitic vol] 89.8 fL 80-94 [facility] Work Phone: Hematocrit Auto (Bld) [Volum e fraction]on 05-19-2021 Hematocrit (Bld) [Volume fraction] 47.6 % 40-54 [facility] Work Phone: Ketones Test strip Ql (U)on 05-19-2021 Ketones Ql (U) Negative Negative [facility] Work Phone: Laboratory - Chemistry and C hemistry - challengeon 05-19-2021 ALP [Catalytic activity/Vol] 156 U/L 45-117 [facility] Work Phone: ALT [Catalytic activity/Vol] 44 U/L 16-61 [facility] Work Phone: [phone] CO2 [Moles/Vol] 26.0 mmol/L 21.0-32.0 [facility] Work Phone: Globulin (S) [Mass/Vol] 4.2 g/dL 2.2-4.2 [facility] Work Phone: [phone] Lipase [Catalytic activity/Vol] 199 U/L 73-393 [facility] Work Phone: [phone] Urea nitrogen/Creatinine [Mass ratio] 13.8 mg/mg 10-20 [facility] Work Phone: Laboratory - Hematology and Cell countson 05-19-2021 Erythrocyte distribution width (RBC) [Entitic vol] 46.7 fL 35.1-43.9 [facility] Work Phone: Erythrocyte distribution width (RBC) [Ratio] 14.3 % 11.6-14.6 [facility] Work Phone: Immature granulocytes/100 WBC (Bld) 0.300 % 0.0-0.9 [facility] Work Phone: Comment on above: IG% - Immature Granu locytes (promyelocytes, myelocytes and metamyelocytes) > 1% indicates that a LEFT SHIFT is Present. MCH (RBC) [Entitic mass] 28.9 pg 27.0-32.0 [facility] Work Phone: Nucleated RBC/100 WBC (Bld) [Ratio] 0 % 0-5 [facility] Work Phone: MCHC Auto (RBC) [Mass/Vol]on 05-19-2021 MCHC (RBC) [Mass/Vol] 32.1 g/dL 32-36 [facility] Work Phone: Mucus LM Ql (Urine sed)on Mucus Ql (Urine sed) 0 SEEN /hpf [facility] Work Phone: Nitrite Test strip Ql (U)on 05-19-2021 Nitrite Ql (U) Negative Negative [facility] Work Phone: No Panel Informationon 05-19 Estimated Creatinine Clearance Calc 46.25 ml/min [facility] Work Phone: Estimated GFR (MDRD) Amer 65 mL/min >60 [facility] Work Phone: Comment on above: GFR Calc Estimated GFR (MDRD) Non-Af Amer 53 mL/min >60 [facility] Work Phone: Comment on above: Non- GFR Calc Platelets bldon 05-19-2021 Platelets (Bld) [#/Vol] 158 10*3/uL 150-450 [facility] Work Phone: Protein Test strip Ql (U)on 05-19-2021 Protein Ql (U) Negative Negative [facility] Work Phone: Serum or plasma albumin francine urement (mass/volume)on 05-19-2021 Albumin [Mass/Vol] 3.7 g/dL 3.2-5.0 [facility] Work Phone: Serum or plasma albumin/glob ulin mass ratioon 05-19-2021 Albumin/Globulin [Mass ratio] 0.9 {ratio} 0.9-2.4 [facility] Work Phone: Serum or plasma calcium francine urement (mass/volume)on 05-19-2021 Calcium [Mass/Vol] 9.2 mg/dL 8.5-10.1 [facility] Work Phone: Serum or plasma creatinine m easurement (mass/volume)on 05-19-2021 Creatinine [Mass/Vol] 1.38 mg/dL 0.70-1.30 [facility] Work Phone: Comment on above: The validity of the calculated GFR & GFRAA in patients over 70 years has not been determined. Clinical correlation is essential. Serum or plasma urea nitroge n measurement (mass/volume)on 05-19-2021 Urea nitrogen [Mass/Vol] 19 mg/dL 7-18 [facility] Work Phone: Squamous epithelial cells de tection in urine sediment by light microscopyon 05-19-2021 Epithelial cells.squamous LM Ql (Urine sed) 0 SEEN /hpf [facility] Work Phone: Thin prep Papanicolaou smear with manual screeningon 05-19-2021 Thin prep Papanicolaou smear with manual screening 25 U/L 15-37 [facility] Work Phone: Thin prep Papanicolaou smear with manual screening 7 5-15 [facility] Work Phone: Urine blood detectionon 05-03 RBC Ql (U) Negative Negative [facility] Work Phone: RBC Ql (U) 0 SEEN /hpf [facility] Work Phone: Urine clarityon 05-19-2021 Clarity (U) Clear Clear [facility] Work Phone: Urine color determinationon 05-19-2021 Color (U) Straw Yellow [facility] Work Phone: Urine glucose detectionon Glucose Ql (U) Normal mg/dl Normal [facility] Work Phone: Urine leukocyte esterase det ection by dipstickon 05-19-2021 Leukocyte esterase Test strip Ql (U) Negative Negative [facility] Work Phone: Urine pHon 05-19-2021 pH (U) 5.0 [pH] [facility] Work Phone: Urine sediment bacteria coun t by microscopy (number/high power field)on 05-19-2021 Bacteria LM.HPF (Urine sed) [#/Area] 0 /[HPF] None Seen [facility] Work Phone: Urine specific gravity measu rementon 05-19-2021 Specific gravity (U) [Rel density] 1.010 [facility] Work Phone: Urobilinogen Auto test strip Ql (U)on 05-19-2021 Urobilinogen Ql (U) Normal mg/dl Normal [facility] Work Phone: CT ANGIOGRAM AORTA CHEST ABD [...] descending thoracic aorta is tortuous within its bzu-xa-oerykl course but is not aneurysmal. The abdominal [...] particularly at L4-L5 and L5-S1. IMAGING FACILITY: [facility]. SB/[employer] Workstation ID: [id number] Dictated by: YAS IYER on WedFeb 26, 2021 1:26:53 PM EDT Transcribed by: KEIKO CORLEY on WedFeb 26, 2021 1:43:47 PM EDT Finalized by: YAS IYER on WedFeb 27, 2021 7:40:59 AM EDT Normal [facility] Comment on above: Order Comment: Injur y/Trauma or Illness?:Illness/Other How long have you had these symptoms (acute/chronic)?:Acute Reason for exam?:Coronary artery disease involving [place] coronary artery of [place] heart with angina pectoris, recent heart cath Type of Exam?:Subsequent/Follow-up Additional signs and symptoms?: LEFT HEART CATH POSSIBLE PTC A/STENTon 01-10-2021 LEFT HEART CATH POSSIBLE PTCA/STENT Patient Name: ERIBERTO RICO Date of : 1945 Procedure Date: 01/10/2021 Cath #: [id number] Physician(s): Eladio Ingram MD Ref. Physician: PROCEDURE(S) PERFORMED: Clinical History: Prior smoker, quit date: Diabetes Mellitus: Yes Hypertension: Yes Dyslipidemia: Yes Prior [place]: Yes Other: Stroke Prior PCI: Yes 2016 [...] right femoral artery - 6F. 10 cm [place] Catheters were advanced using standard guide wire [...] Equipment: Sheath(s) [employer] 4F MICROPUNCTURE KIT MoSo 6F 10CM [place] SHEATH Wire(s) [employer] J WIRE FIXED MERIT .035 X 150CM GUIDEWIRE Catheter(s) [employer] JR4 DIAG CATH 6F [employer] JR4 DIAG CATH 6F [employer] PIGTAIL STRAIGHT DIAG CATH 6F See Nursing Notes for further details Signed By Eladio Ingram MD On 01/10/2021 11:05:05 Eladio Ingram MD _ _ Normal [facility] ECHOCARDIOGRAM 2D COMPLETEOr dered By: Eladio Ingram on 10-15-2020 Aortic valve area 2.32437 cm [facility] AV mean gradient 6 mmHg [facility] EF 62.7797 % [facility] Patient Info Name: ERIBERTO RICO Age: 75 years : 1945 Gender: Male Ht: 175 cm Wt: 106 kg BSA: 2.31 m2 HR: 50 bpm BP: 134 / 72 mmHg Heart Rhythm: Bradycardia, Sinus Rhythm Technical Quality: Fair, Technically difficult Exam Date: 10/15/2020 12:57 PM Patient Status: Outpatient [employer] Operator: Tracy Bonilla, DRU, RVT Exam Type: ECHOCARDIOGRAM COMPLETE W CONTRAST Study Info Indications - Dyspnea Attending Physician: ELADIO INGRAM Referring Physician: ELADIO INGRAM ; [id number] BMI: 34.56 kg/m2 Summary 1. Left ventricular systolic function is normal, with ejection fraction estimated at 60 +/- 5%. 2. The left ventricular diastolic function is normal. 3. 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 4. There is no aortic valve stenosis. History/Risk Factors Hypertension: Yes Dyslipidemia: Yes Diabetic Therapy: Oral Peripheral Arterial Disease (PAD): Yes Myocardial Infarction ([place]): Yes Coronary Artery Disease (CAD) Yes Congestive Heart Failure (CHF): Hx CHF Date of Prior [place]: 05/03/2008 Diabetes Mellitus: Yes History/Risk Factors sleep [...] Velocity 1.09 m/s (more content not included)... [facility] Interface, Rad In [facility]ch[employer] - 10/15/2020 4:30 PM EDT Patient Info Name: ERIBERTO RICO Age: 75 years : 1945 Gender: Male Ht: 175 cm Wt: 106 kg BSA: 2.31 m2 HR: 50 bpm BP: 134 / 72 mmHg Heart Rhythm: Bradycardia, Sinus Rhythm Technical Quality: Fair, Technically difficult Exam Date: 10/15/2020 12:57 PM Patient Status: Outpatient [employer] Log[employer] Operator: Tracy Bonilla, RDCS, RVT Exam Type: ECHOCARDIOGRAM COMPLETE W CONTRAST Study Info Indications - Dyspnea Attending Physician: ELADIO INGRAM Referring Physician: ELADIO INGRAM ; [id number] BMI: 34.56 kg/m2 Summary 1. Left ventricular systolic function is normal, with ejection fraction estimated at 60 +/- 5%. 2. The left ventricular diastolic function is normal. 3. 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 4. There is no aortic valve stenosis. History/Risk Factors Hypertension: Yes Dyslipidemia: Yes Diabetic Therapy: Oral Peripheral Arterial Disease (PAD): Yes Myocardial Infarction ([place]): Yes Coronary Artery Disease (CAD) Yes Congestive Heart Failure (CHF): Hx CHF Date of Prior [place]: 05/03/2008 Diabetes Mellitus: Yes History/Risk Factors sleep [...] mmHg MV VTI 46 cm MV [place]el [place] 333 cm/s2 MV PHT 38 ms MV Area (PHT) 5.8 cm2 4.0-5.0 MV Area (Cont Eq VTI) 2.5 cm2 MV Area Index (Cont Eq VTI) 1.06 cm2/m2 MV Di (more content not included)... 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 Left ventricular systolic function is normal, with ejection fraction estimated at 60 +/- 5%. 2. The left ventricular diastolic function is normal. 3. 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 4. There is no aortic valve stenosis. History/Risk Factors Hypertension: Yes Dyslipidemia: Yes Diabetic Therapy: Oral Peripheral Arterial Disease (PAD): Yes Myocardial Infarction ([place]): Yes Coronary Artery Disease (CAD) Yes Congestive Heart Failure (CHF): Hx CHF Date of Prior [place]: 05/03/2008 Diabetes Mellitus: Yes History/Risk Factors sleep [...] mmHg MV VTI 46 cm MV [place] 333 cm/s2 MV PHT 38 ms MV Area (PHT) 5.8 cm2 4.0-5.0 MV Area (Cont Eq VTI) 2.5 cm2 MV Area Index (Cont Eq VTI) 1.06 cm2/m2 MV Diastolic Function ------- MV E Peak Velocity 1 m/s MV A Peak Velocity 1 m/s MV E/A 1.2 MV (more content not included)... Normal [facility] Ambulatory ECG 12-LEADOrdered By: Fernanda Acuña on 10-09-2020 Atrial Rate [facility] P [place] [facility] P-R Interval [facility] Q-T Interval [facility] Q-T Interval (corrected) [facility] QRS Duration [facility] QTC Calculation (Bezet) [facility] [place] [facility] T [place] [facility] Ventricular Rate [facility] Auto Diffon 09-15-2018 Basophils #/vol (Bld) 0.0 E3/mcL Normal 0.0-0.2 [facility] Comment on above: Order Comment: Order Added by Discern Expert. Performed By: #### 2 [id number] #### [facility] [employer] [address] [place] [address] Basophils/100 WBC (Bld) 0.6 % Normal 0.0-2.0 [facility] Comment on above: Order Comment: Order Added by Discern Expert. Performed By: #### 2 [id number] #### [employer] [address] [place] [address] Eos Absolute 0.1 E3/mcL Normal 0.0-0.7 [facility] Comment on above: Order Comment: Order Added by Discern Expert. Performed By: #### 2 [id number] #### [employer] [address] [place] [address] Eosinophils/100 WBC (Bld) 2.2 % Normal 0.0-11.0 [facility] Comment on above: Order Comment: Order Added by Discern Expert. Performed By: #### 2 [id number] #### [employer] [address] [place] [address] Lymphocytes #/vol (Bld) 1.9 E3/mcL Normal 1.2-3.4 [facility] Comment on above: Order Comment: Order Added by Kiana Expert. Performed By: #### 2 [id number] #### [employer] [address] [place] [address] Lymphocytes/100 WBC (Bld) 31.0 % Normal 20.0-55.0 [facility] Comment on above: Order Comment: Order Added by Discern Expert. Performed By: #### 2 [id number] #### [employer] [address] [place] [address] [place] Absolute 0.8 E3/mcL High 0.0-0.7 [facility] Comment on above: Order Comment: Order Added by Discern Expert. Performed By: #### 2 [id number] #### [employer] [address] [place] [address] Monocytes/100 WBC (Bld) 13.2 % High 0.0-10.0 [facility] Comment on above: Order Comment: Order Added by Discern Expert. Performed By: #### 2 [id number] #### [employer] [address] [place] [address] Neutro Absolute 3.3 E3/mcL Normal 1.4-6.5 [facility] Comment on above: Order Comment: Order Added by Discern Expert. Performed By: #### 2 [id number] #### [employer] [address] [place] [address] Neutro Auto 53.0 % Normal 37.0-75.0 [facility] Comment on above: Order Comment: Order Added by Discern Expert. Performed By: #### 2 [id number] #### [employer] [address] [place] [address] BMPon 09-15-2018 Anion gap molar conc 10 mmol/L Normal 10-20 [facility] Comment on above: Performed By: #### 2 [id number] #### [employer] [address] [place] [address] Calcium mass conc 8.4 mg/dL Low 8.6-10.3 [facility] Comment on above: Performed By: #### 2 [id number] #### [employer] [address] [place] [address] Chloride molar conc 105 mmol/L Normal 98-107 [facility] Comment on above: Performed By: #### 2 [id number] #### [employer] [address] [place] [address] CO2 molar conc 26.0 mmol/L Normal 21.0-32.0 [facility] Comment on above: Performed By: #### 2 [id number] #### [employer] [address] [place] [address] Creatinine mass conc 1.1 mg/dL Normal 0.5-1.3 [facility] Comment on above: Performed By: #### 2 [id number] #### [employer] [address] [place] [address] Glucose mass conc 136 mg/dL High 70-99 [facility] Comment on above: Performed By: #### 2 [id number] #### [employer] [address] [place] [address] Potassium molar conc 4.1 mmol/L Normal 3.5-5.3 [facility] Comment on above: Performed By: #### 2 [id number] #### [employer] [address] [place] [address] Sodium molar conc 137 mmol/L Normal 136-145 [facility] Comment on above: Performed By: #### 2 [id number] #### [employer] [address] [place] [address] Urea nitrogen mass conc 19 mg/dL Normal 6-23 [facility] Comment on above: Performed By: #### 2 [id number] #### [employer] [address] [place] [address] Urea nitrogen/Creatinine mass ratio 17.3 ratio Normal 5.4-30.0 [facility] Comment on above: Performed By: #### 2 [id number] #### [employer] [address] [place] [address] CBC w/ Auto Diffon 9 Erythrocyte distribution width Ratio (RBC) 14.9 % High 11.5-14.5 [facility] Comment on above: Performed By: #### 2 [id number] #### [employer] [address] [place], [place] [id number] Hematocrit Volume Fraction (Bld) 41.5 % Low 42.0-52.0 [facility] Comment on above: Performed By: #### 2 [id number] #### [employer] [address] [place] [address] Hemoglobin mass conc (Bld) 13.6 g/dL Normal 13.5-18.0 [facility] Comment on above: Performed By: #### 2 [id number] #### [employer] [address] [place] [address] MCH Entitic mass (RBC) 29.6 pg Normal 27.0-31.0 [facility] Comment on above: Performed By: #### 2 [id number] #### [employer] [address] [place] [address] MCHC mass conc (RBC) 32.8 g/dL Low 33.0-37.0 [facility] Comment on above: Performed By: #### 2 [id number] #### [employer] [address] [place] [address] 81655 MCV Entitic volume (RBC) 90.4 fL Normal 78.0-100.0 [facility] Comment on above: Performed By: #### 2 [id number] #### [employer] [address] [place], [place] [phone] Platelet mean volume Entitic volume (Bld) 10.8 fL Normal 7.4-11.0 [facility] Comment on above: Performed By: #### 2 [id number] #### [employer] [address] [place], [place] [address] Platelets #/vol (Bld) 137 E3/mcL Normal 130-400 [facility] Comment on above: Performed By: #### 2 [id number] #### [employer] [address] [place] [address] RBC #/vol (Bld) 4.59 E6/mcL Normal 3.90-6.10 [facility] Comment on above: Performed By: #### 2 [id number] #### [employer] [address] [place] [address] WBC #/vol (Bld) 6.2 E3/mcL Normal 3.6-11.0 [facility] Comment on above: Performed By: #### 2 [id number] #### [employer] [address] [place] [address] Glucose POCon 09-15-2018 Glucose mass conc 163 mg/dL High 70-99 [facility] Comment on above: Performed By: #### 2 [id number] #### [employer] [address] [place] [address] Glucose mass conc 99 mg/dL Normal 70-99 [facility] Comment on above: Performed By: #### 2 631109 #### [employer] [address] [place], [place] [id number] Troponin-Ion 09-15-2018 Troponin I.cardiac mass conc 0.01 ng/mL Normal 0.00-0.03 [facility] Comment on above: Performed By: #### 2 [id number] #### [employer] [address] [place], [place] [address] eGFRon 09-15-2018 GFR/1.73 sq M predicted among non-blacks MDRD vol rate/area (S/P/Bld) mL/min/{1.73_m2} Normal [facility] Comment on above: Order Comment: Order added by Discern Expert. Performed By: #### 2 [id number] #### [employer] [address] [place] [address] Auto Diffon 09-14-2018 Basophils #/vol (Bld) 0.0 E3/mcL Normal 0.0-0.2 [facility] Comment on above: Order Comment: Order Added by Discern Expert. Performed By: #### 2 [id number] #### [employer] [address] [place] [address] Basophils/100 WBC (Bld) 0.6 % Normal 0.0-2.0 [facility] Comment on above: Order Comment: Order Added by Discern Expert. Performed By: #### 2 [id number] #### [employer] [address] [place], [place] [address] Eos Absolute 0.1 E3/mcL Normal 0.0-0.7 [facility] Comment on above: Order Comment: Order Added by Discern Expert. Performed By: #### 2 [id number] #### [employer] [address] [place], [place] [address] Eosinophils/100 WBC (Bld) 1.7 % Normal 0.0-11.0 [facility] Comment on above: Order Comment: Order Added by Discern Expert. Performed By: #### 2 [id number] #### [employer] [address] [place] [address] Lymphocytes #/vol (Bld) 1.2 E3/mcL Normal 1.2-3.4 [facility] Comment on above: Order Comment: Order Added by Discern Expert. Performed By: #### 2 [id number] #### [employer] [address] [place] [address] Lymphocytes/100 WBC (Bld) 16.5 % Low 20.0-55.0 [facility] Comment on above: Order Comment: Order Added by Discern Expert. Performed By: #### 2 341394 #### [employer] [address] [place] [address] [place] Absolute 0.8 E3/mcL High 0.0-0.7 [facility] Comment on above: Order Comment: Order Added by Kiana Expert. Performed By: #### 2 [id number] #### [employer] [address] [place] [address] Monocytes/100 WBC (Bld) 11.1 % High 0.0-10.0 [facility] Comment on above: Order Comment: Order Added by Discern Expert. Performed By: #### 2 [id number] #### [employer] [address] [place] [address] Neutro Absolute 5.1 E3/mcL Normal 1.4-6.5 [facility] Comment on above: Order Comment: Order Added by Discern Expert. Performed By: #### 2 [id number] #### [employer] [address] [place] [address] Neutro Auto 70.1 % Normal 37.0-75.0 [facility] Comment on above: Order Comment: Order Added by Discern Expert. Performed By: #### 2 [id number] #### [employer] [address] [place] [address] BMPon 09-14-2018 Anion gap molar conc 13 mmol/L Normal 10-20 [facility] Comment on above: Performed By: #### 2 [id number] #### [employer] [address] [place] [address] Calcium mass conc 9.2 mg/dL Normal 8.6-10.3 [facility] Comment on above: Performed By: #### 2 620826 #### [employer] [address] [place] [address] Chloride molar conc 105 mmol/L Normal 98-107 [facility] Comment on above: Performed By: #### 2 [id number] #### [employer] [address] [place] [address] CO2 molar conc 24.0 mmol/L Normal 21.0-32.0 [facility] Comment on above: Performed By: #### 2 [id number] #### [employer] [address] [place] [address] Creatinine mass conc 1.2 mg/dL Normal 0.5-1.3 [facility] Comment on above: Performed By: #### 2 509405 #### [employer] [address] [place], [place] [phone] Glucose mass conc 129 mg/dL High 70-99 [facility] Comment on above: Performed By: #### 2 [id number] #### [employer] [address] [place] [address] Potassium molar conc 3.9 mmol/L Normal 3.5-5.3 [facility] Comment on above: Performed By: #### 2 165089 #### [employer] [address] [place] [address] Sodium molar conc 138 mmol/L Normal 136-145 [facility] Comment on above: Performed By: #### 2 950059 #### [employer] [address] [place] [address] Urea nitrogen mass conc 19 mg/dL Normal 6-23 [facility] Comment on above: Performed By: #### 2 [id number] #### [employer] [address] [place] [id number] Urea nitrogen/Creatinine mass ratio 15.8 ratio Normal 5.4-30.0 [facility] Comment on above: Performed By: #### 2 [id number] #### [employer] [address] [place] [id number] CBC w/ Auto Diffon 9 Erythrocyte distribution width Ratio (RBC) 15.2 % High 11.5-14.5 [facility] Comment on above: Performed By: #### 2 [id number] #### [employer] Rem[employer] [address] [place] [address] Hematocrit Volume Fraction (Bld) 45.0 % Normal 42.0-52.0 [facility] Comment on above: Performed By: #### 2 [id number] #### [employer] [address] [place] [address] Hemoglobin mass conc (Bld) 15.0 g/dL Normal 13.5-18.0 [facility] Comment on above: Performed By: #### 2 [id number] #### [employer] [address] [place] [address] MCH Entitic mass (RBC) 29.8 pg Normal 27.0-31.0 [facility] Comment on above: Performed By: #### 2 [id number] #### [employer] RemHemo [address] [place] [address] MCHC mass conc (RBC) 33.4 g/dL Normal 33.0-37.0 [facility] Comment on above: Performed By: #### 2 [id number] #### [employer] FregosoHemo [address] [place] [address] MCV Entitic volume (RBC) 89.4 fL Normal 78.0-100.0 [facility] Comment on above: Performed By: #### 2 [id number] #### [employer]regoso[employer] [facility] [place] [id number] Platelet mean volume Entitic volume (Bld) 10.8 fL Normal 7.4-11.0 [facility] Comment on above: Performed By: #### 2 [id number] #### [employer]regoso[employer] [facility] [place] [address] Platelets #/vol (Bld) 158 E3/mcL Normal 130-400 [facility] Comment on above: Performed By: #### 2 [id number] #### [employer]regosoH[employer] [facility] [place] [id number] RBC #/vol (Bld) 5.04 E6/mcL Normal 3.90-6.10 [facility] Comment on above: Performed By: #### 2 [id number] #### [employer]regoso[employer] [facility] [place] [id number] WBC #/vol (Bld) 7.2 E3/mcL Normal 3.6-11.0 [facility] Comment on above: Performed By: #### 2 [id number] #### [employer] [facility] [place] [id number] CT Head or Brain w/o Contras ton 09-14-2018 CT Head or Brain w/o Contrast Exam Date/Time: 09/14/2018 15:21 EDT Reason for Exam: Injury Report STUDY: CT Head or Brain w/o Contrast; 09/14/2018 3:21 pm INDICATION: Injury. COMPARISON: 11/28/2016 ACCESSION NUMBER(S): [id number] ORDERING CLINICIAN: Kirsty Nguyen TECHNIQUE: Volume acquisition [...] Signed by: Radha Olivarez MD Technologist: IZAIAH [facility] CT Spine Cervical w/o Contra ston 09-14-2018 CT Spine Cervical w/o Contrast Exam Date/Time: 09/14/2018 15:22 EDT Reason for Exam: Trauma Report STUDY: CT Spine Cervical w/o Contrast; 09/14/2018 3:22 pm INDICATION: Trauma. COMPARISON: None. ACCESSION NUMBER(S): [id number] ORDERING CLINICIAN: Kirsty Nguyen TECHNIQUE: Axial CT [...] Signed by: Radha Olivarez MD Technologist: IZAIAH [facility] Glucose POCon 09-14-2018 Glucose mass conc 132 mg/dL High 70-99 [facility] Comment on above: Performed By: #### 2 [id number] #### [employer]reg[employer] [facility] [place] [address] [id number] 09-14-2018 Hemoglobin A1c/Hemoglobin.total mass fraction (Bld) 6.9 % High 4.0-6.3 [facility] Comment on above: Performed By: #### 2 [id number] #### [employer]regoso[employer] [facility] [place] [address] Magnesiumon 09-14-2018 Magnesium mass conc 2.0 Int._Unit/L Normal 1.6-2.4 [facility] Comment on above: Performed By: #### 2 [id number] #### [employer] [address] [place] [address] PTon 09-14-2018 INR Coag RelTime (PPP) 1.0 {INR} Normal 0.9-1.1 [facility] Comment on above: Result Comment: INR Recommended Therapeutic ranges: Prophylaxis/treatment of DVT and PE..........2.0-3.0 Prevention of systemic embolism.................2.0-3.0 Mechanical prosthetic values........................2.5-3.5 CRITICAL VALUE.........................................> 4.0 NOTE: New methodology started 05/16/2018 Performed By: #### 2 [id number] #### [employer] [facility] [place] [address] Prothrombin time (PT) Coag time (PPP) 11.8 second(s) Normal 9.7-12.7 [facility] Comment on above: Result Comment: NOTE : New reference range established on 05/16/2018 due to change in methodology. Performed By: #### 2 [id number] #### [employer] Zenobia[employer] [address] [place] [id number] PTTon 09-14-2018 aPTT Coag time (Bld) 32 second(s) Normal 28-38 [facility] Comment on above: Result Comment: NOTE :New reference range established 05/16/2018 due to change in methodology. Performed By: #### 2 [id number] #### [employer]reg[employer]emo [address] [place] [address] TSHon 09-14-2018 Thyrotropin Qn 5.25 mcIU/mL Normal 0.30-5.60 [facility] Comment on above: Performed By: #### 2 [id number] #### [employer]regoso[employer] [address] [place] [address] Troponin-Ion 09-14-2018 Troponin I.cardiac mass conc 0.02 ng/mL Normal 0.00-0.03 [facility] Comment on above: Performed By: #### 2 [id number] #### [employer] [address] [place] [address] UA Completeon 09-14-2018 Color Nom (U) Straw Normal Yellow [facility] Comment on above: Performed By: #### 2 [id number] #### [employer]emo [address] [place] [address] Glucose mass conc (U) Negative Normal Negative [facility] Comment on above: Performed By: #### 2 [id number] #### [employer] [facility] [place] [address] Ketones Ql (U) Negative Normal Negative [facility] Comment on above: Performed By: #### 2 [id number] #### [employer] [address] [place] [address] UA Blood Negative Normal Negative [facility] Comment on above: Performed By: #### 2 [id number] #### [employer] [address] [place] [id number] UA Clarity Clear Normal Clear [facility] Comment on above: Performed By: #### 2 [id number] #### [employer] [address] [place] [address] UA Hyal Cast 3-5 Abnormal 0-2 [facility] Comment on above: Performed By: #### 2 [id number] #### [employer] [address] [place] [address] UA Leuk Est Negative Normal Negative [facility] Comment on above: Performed By: #### 2 [id number] #### [employer] [address] [place] [address] UA Mucous Trace Abnormal Trace [facility] Comment on above: Performed By: #### 2 [id number] #### [employer] [address] [place] [address] UA Nitrite Negative Normal Negative [facility] Comment on above: Performed By: #### 2 [id number] #### [employer] [address] [place] [address] UA pH 5.0 Normal 4.6-8.0 [facility] Comment on above: Performed By: #### 2 [id number] #### [employer] [address] [place] [address] UA Protein Negative Normal Negative [facility] Comment on above: Performed By: #### 2 [id number] #### [employer] [address] [place] [id number] UA Spec Grav 1.009 Normal 1.003-1.030 [facility] Comment on above: Performed By: #### 2 [id number] #### [employer]emo [address] [place] [address] UA Urobilinogen Negative Normal [facility] Comment on above: Result Comment: Due to a manufacturing issue, low positive urobilinogen results may be fasely positive. Correlate with urine bilirubin and additional clinical/laboratory findings to assess the risk of hemolytic anemia or liver disease. If clinically indicated, repeat testing with an alternate method is available by contacting the laboratory within 24 hours. Performed By: #### 2 [id number] #### [employer] [address] [place] [id number] Urobilinogen Qn (U) Negative Normal Negative [facility] Comment on above: Performed By: #### 2 [id number] #### [employer] Fregoso[employer]emo [address] [place] [id number] XR Chest AP Portableon 09-14 XR Chest AP Portable Exam Date/Time: 09/14/2018 15:43 EDT Reason for Exam: Chest pain Report STUDY: XR Chest AP Portable; 09/14/2018 3:43 pm INDICATION: Chest pain. COMPARISON: 12/25/2016 ACCESSION NUMBER(S): [id number] ORDERING CLINICIAN: Kirsty Nguyen FINDINGS: CARDIOMEDIASTINAL SILHOUETTE: [...] pm Signed by: Iva Vargas MD Technologist: [facility] XR Humerus Lefton 09-14-2018 XR Humerus Left Exam Date/Time: 09/14/2018 15:43 EDT Reason for Exam: Pain, Traumatic Report STUDY: XR Humerus Left; XR Shoulder Complete Left;; 09/14/2018 3:43 pm INDICATION: Pain, Traumatic. COMPARISON: None. ACCESSION NUMBER(S): [id number]; [id number] ORDERING CLINICIAN: Kirsty Nguyen FINDINGS: Five views [...] pm Signed by: Iva Vargas MD Technologist: [facility] XR Knee Complete Righton XR Knee Complete Right Exam Date/Time: 09/14/2018 15:43 EDT Reason for Exam: Pain, Traumatic Report STUDY: XR Knee Complete Right;; 09/14/2018 3:43 pm INDICATION: Pain, Traumatic. COMPARISON: None. ACCESSION NUMBER(S): [id number] ORDERING CLINICIAN: Kirsty Nguyen FINDINGS: Four views right knee: There is no fracture, dislocation or joint effusion. There is swelling anterior to the patella and infrapatellar tendon. IMPRESSION: No acute bony abnormality right knee, soft tissue swelling. FINAL REPORT Dictated: 09/14/2018 4:19 pm Iva Vargas MD Signed (Electronic Signature): 09/14/2018 4:19 pm Signed by: Iva Vargas MD Technologist: [facility] XR Shoulder Complete Lefton 09-14-2018 XR Shoulder Complete Left Exam Date/Time: 09/14/2018 15:43 EDT Reason for Exam: Pain, Traumatic Report STUDY: XR Humerus Left; XR Shoulder Complete Left;; 09/14/2018 3:43 pm INDICATION: Pain, Traumatic. COMPARISON: None. ACCESSION NUMBER(S): [id number]; [id number] ORDERING CLINICIAN: Kirsty Nguyen FINDINGS: Five views [...] pm Signed by: Iva Vargas MD Technologist: [facility] eGFRon 09-14-2018 GFR/1.73 sq M predicted among non-blacks MDRD vol rate/area (S/P/Bld) mL/min/{1.73_m2} Normal [facility] Comment on above: Order Comment: Order added by Discern Expert. Performed By: #### 1 [id number] #### [employer] [facility] [place] [address] Vital Signs Date Time Vital Sign Value Performing Clinician Facility 11-22-2024 10:41-0400 Body mass index (BMI) [Ratio] 35.9 kg/m2 Dr. Marycarmen Rodriguez DO Work Phone: [facility] 11-22-2024 10:41-0400 Body weight 110.[address] Marycarmen Rodriguez DO Work Phone: [facility] 11-22-2024 10:41-0400 Diastolic blood pressure 62 mm[Hg] Dr. Marycarmen Rodriguez DO Work Phone: [facility] 11-22-2024 10:41-0400 Heart rate 66 /min Dr. Marycarmen Rodriguez DO Work Phone: [facility] 11-22-2024 10:41-0400 Respiratory rate 20 /min Dr. Marycarmen Rodriguez DO Work Phone: [facility] 11-22-2024 10:41-0400 Systolic blood pressure 107 mm[Hg] Dr. Marycarmen Rodriguez DO Work Phone: [facility] 10-31-2024 07:44-0400 Body mass index (BMI) [Ratio] 35.4 kg/m2 Dr. Marycarmen Rodriguez DO Work Phone: [facility] 10-31-2024 07:44-0400 Body temperature 97.1 [degF] Dr. Marycarmen Rodriguez DO Work Phone: [facility] 10-31-2024 07:44-0400 Body weight 108.[address] Marycarmen Rodriguez DO Work Phone: [facility] 10-31-2024 07:44-0400 Diastolic blood pressure 75 mm[Hg] Dr. Marycarmen Rodriguez DO Work Phone: [facility] 10-31-2024 07:44-0400 Heart rate 64 /min Dr. Marycarmen Rodriguez DO Work Phone: [facility] 10-31-2024 07:44-0400 Respiratory rate 20 /min Dr. Marycarmen Rodriguez DO Work Phone: [facility] 10-31-2024 07:44-0400 SaO2% (BldA) [Mass fraction] 97 % Dr. Marycarmen Rodriguez DO Work Phone: [facility] 10-31-2024 07:44-0400 Systolic blood pressure 135 mm[Hg] Dr. Marycarmen Rodriguez DO Work Phone: [facility] 10-25-2024 08:10-0400 Body height 175.[address] Marycarmen Rodriguez DO Work Phone: [facility] 10-25-2024 08:10-0400 Body mass index (BMI) [Ratio] 35.9 kg/m2 Dr. Marycarmen Rodriguez DO Work Phone: [facility] 10-25-2024 08:10-0400 Body weight 110.[address] Marycarmen Rodriguez DO Work Phone: [facility] 10-25-2024 08:10-0400 Diastolic blood pressure 85 mm[Hg] Dr. Marycarmen Rodriguez DO Work Phone: [facility] 10-25-2024 08:10-0400 Heart rate 85 /min Dr. Marycarmen Rodriguez DO Work Phone: [facility] 10-25-2024 08:10-0400 Respiratory rate 18 /min Dr. Marycarmen Rodriguez DO Work Phone: [facility] 10-25-2024 08:10-0400 Systolic blood pressure 121 mm[Hg] Dr. Marycarmen Rodriguez DO Work Phone: [facility] 09-20-2024 09:15-0400 Body height 175.[address] Marycarmen Rodriguez DO Work Phone: [facility] 09-20-2024 09:15-0400 Body mass index (BMI) [Ratio] 35.6 kg/m2 Dr. Marycarmen Rodriguez DO Work Phone: [facility] 09-20-2024 09:15-0400 Body temperature 96.8 [degF] Dr. Marycarmen Rodriguez DO Work Phone: [facility] 09-20-2024 09:15-0400 Body weight 109.[address] Marycarmen Rodriguez DO Work Phone: [facility] 09-20-2024 09:15-0400 Diastolic blood pressure 77 mm[Hg] Dr. Marycarmen Rodriguez DO Work Phone: [facility] 09-20-2024 09:15-0400 Heart rate 66 /min Dr. Marycarmen Rodriguez DO Work Phone: [facility] 09-20-2024 09:15-0400 Respiratory rate 18 /min Dr. Marycarmen Rodriguez DO Work Phone: [facility] 09-20-2024 09:15-0400 SaO2% (BldA) [Mass fraction] 97 % Dr. Marycarmen Rodriguez DO Work Phone: [facility] 09-20-2024 09:15-0400 Systolic blood pressure 121 mm[Hg] Dr. Marycarmen Rodriguez DO Work Phone: [facility] 07-18-2024 06:00-0400 Body height 175.[address] Marycarmen Rodriguez DO Work Phone: [facility] 07-18-2024 06:00-0400 Body weight 104.[address] Marycarmen Rodriguez DO Work Phone: [facility] 07-18-2024 06:00-0400 Heart rate 69 /min Dr. Marycarmen Rodriguez DO Work Phone: [facility] 07-18-2024 06:00-0400 SaO2% (BldA) [Mass fraction] 97 % Dr. Marycarmen Rodriguez DO Work Phone: [facility] 07-03-2024 08:35-0500 Body mass index (BMI) [Ratio] 36.6 kg/m2 Dr. Marycarmen Rodriguez DO Work Phone: [facility] 07-03-2024 08:35-0500 Body temperature 97.5 [degF] Dr. Marycarmen Rodriguez DO Work Phone: [facility] 07-03-2024 08:35-0500 Body weight 109.[address] Marycarmen Rodriguez DO Work Phone: [facility] 07-03-2024 08:35-0500 Diastolic blood pressure 77 mm[Hg] Dr. Marycarmen Rodriguez DO Work Phone: [facility] 07-03-2024 08:35-0500 Heart rate 72 /min Dr. Marycarmen Rodriguez DO Work Phone: [facility] 07-03-2024 08:35-0500 Respiratory rate 20 /min Dr. Marycarmen Rodriguez DO Work Phone: [facility] 07-03-2024 08:35-0500 SaO2% (BldA) [Mass fraction] 96 % Dr. Marycarmen Rodriguez DO Work Phone: [facility] 07-03-2024 08:35-0500 Systolic blood pressure 116 mm[Hg] Dr. Marycarmen Rodriguez DO Work Phone: [facility] 04-17-2024 15:55-0500 Body height [address] Marycramen Rodriguez DO Work Phone: [facility] 04-17-2024 15:55-0500 Body mass index (BMI) [Ratio] 36.9 kg/m2 Dr. Marycarmen Rodriguez DO Work Phone: [facility] 04-17-2024 15:55-0500 Body weight 110.[address] Marycarmen Rodriguez DO Work Phone: [facility] 04-17-2024 15:55-0500 Diastolic blood pressure 53 mm[Hg] Dr. Marycarmen Rodriguez DO Work Phone: [facility] 04-17-2024 15:55-0500 Heart rate 70 /min Dr. Marycarmen Rodriguez DO Work Phone: [facility] 04-17-2024 15:55-0500 Respiratory rate 18 /min Dr. Marycarmen Rodriguez DO Work Phone: [facility] 04-17-2024 15:55-0500 SaO2% (BldA) [Mass fraction] 94 % Dr. Marycarmen Rodriguez DO Work Phone: [facility] 04-17-2024 15:55-0500 Systolic blood pressure 91 mm[Hg] Dr. Marycarmen Rodriguez DO Work Phone: [facility] 03-27-2024 10:17-0500 Diastolic blood pressure 79 mm[Hg] Dr. Marycarmen Rodriguez DO Work Phone: [facility] 03-27-2024 10:17-0500 Heart rate 67 /min Dr. Marycarmen Rodriguez DO Work Phone: [facility] 03-27-2024 10:17-0500 Respiratory rate 18 /min Dr. Marycarmen Rodriguez DO Work Phone: [facility] 03-27-2024 10:17-0500 Systolic blood pressure 134 mm[Hg] Dr. Marycarmen Rodriguez DO Work Phone: [facility] 03-20-2024 08:28-0500 Body mass index (BMI) [Ratio] 37.5 kg/m2 Dr. Marycarmen Rodriguez DO Work Phone: [facility] 03-20-2024 08:28-0500 Body weight 112.[address] Marycarmen Rodriguez DO Work Phone: [facility] 03-20-2024 08:28-0500 Diastolic blood pressure 89 mm[Hg] Dr. Marycarmen Rodriguez DO Work Phone: [facility] 03-20-2024 08:28-0500 Heart rate 61 /min Dr. Marycarmen Rodriguez DO Work Phone: [facility] 03-20-2024 08:28-0500 Respiratory rate 18 /min Dr. Marycarmen Rodriguez DO Work Phone: [facility] 03-20-2024 08:28-0500 Systolic blood pressure 141 mm[Hg] Dr. Marycarmen Rodriguez DO Work Phone: [facility] 12-21-2022 07:51-0400 Body height 172.[address] Marycarmen Rodriguez Work Phone: [facility] 12-21-2022 07:51-0400 Body weight 85.[address] Marycarmen Rodriguez Work Phone: [facility] 12-18-2022 08:27-0400 Body mass index (BMI) [Ratio] 28.7 kg/m2 Dr. Marycarmen Rodriguez Work Phone: [facility] 12-15-2022 13:03-0400 Body mass index (BMI) [Ratio] 28.7 kg/m2 Dr. Marycarmen Rodriguez Work Phone: [facility] 12-15-2022 13:03-0400 Body weight 85.[address] Marycarmen Rodriguez Work Phone: [facility] 12-15-2022 13:03-0400 Diastolic blood pressure 92 mm[Hg] Dr. Marycarmen Rodriguez Work Phone: [facility] 12-15-2022 13:03-0400 Heart rate 72 /min Dr. Marycarmen Rodriguez Work Phone: [facility] 12-15-2022 13:03-0400 Respiratory rate 16 /min Dr. Marycarmen Rodriguez Work Phone: [facility] 12-15-2022 13:03-0400 Systolic blood pressure 156 mm[Hg] Dr. Marycarmen Rodriguez Work Phone: [facility] 10-13-2022 10:59-0400 Body height 172.72 cm Marycarmen Rodriguez [facility] 10-13-2022 10:59-0400 Body mass index (BMI) [Ratio] 25.4 kg/m2 Marycarmen Jennifer [facility] 10-13-2022 10:59-0400 Body weight 75.74 kg Marycarmen Rodriguez [facility] 10-13-2022 10:59-0400 Diastolic blood pressure 75 mm[Hg] Marycarmen Jennifer [facility] 10-13-2022 10:59-0400 Heart rate 65 /min Marycarmen Jennifer [facility] 10-13-2022 10:59-0400 Respiratory rate 18 /min Marycarmen Rodriguez [facility] 10-13-2022 10:59-0400 SaO2% (BldA) [Mass fraction] 94 % Marycarmen Jennifer [facility] 10-13-2022 10:59-0400 Systolic blood pressure 143 mm[Hg] Marycarmen Jennifer [facility] 09-21-2022 15:30-0400 Body mass index (BMI) [Ratio] 34.7 kg/m2 Marycarmen Jennifer [facility] 09-21-2022 15:27-0400 Body temperature 98 [degF] Marycarmen Jennifer [facility] 09-21-2022 15:27-0400 Diastolic blood pressure 84 mm[Hg] Marycarmen Jennifer [facility] 09-21-2022 15:27-0400 Heart rate 79 /min Marycarmen SWAIN [facility] 09-21-2022 15:27-0400 Respiratory rate 17 /min Marycarmen Jennifer [facility] 09-21-2022 15:27-0400 SaO2% (BldA) [Mass fraction] 96 % Marycarmen Jennifer [facility] 09-21-2022 15:27-0400 Systolic blood pressure 143 mm[Hg] Marycarmen Jennifer [facility] 09-21-2022 06:25-0400 Body weight 103.6 kg Marycarmen Rodriguez [facility] 09-19-2022 01:30-0400 Inhaled oxygen concentration 21 % Marycarmen [facility] 09-01-2022 09:59-0400 Diastolic blood pressure 68 mm[Hg] Marycarmen Jennifer [facility] 09-01-2022 09:59-0400 Heart rate 49 /min Marycarmen Jennifer [facility] 09-01-2022 09:59-0400 Systolic blood pressure 127 mm[Hg] Marycarmen [facility] 09-01-2022 09:57-0400 Body temperature 97.9 [degF] Marycarmen [facility] 09-01-2022 09:57-0400 Respiratory rate 18 /min Marycarmen [facility] 09-01-2022 09:57-0400 SaO2% (BldA) [Mass fraction] 93 % Marycarmen [facility] 09-01-2022 04:08-0400 Body mass index (BMI) [Ratio] 35.2 kg/m2 Marycarmen [facility] 09-01-2022 04:08-0400 Body weight 108.2 kg Marycarmen Jennifer [facility] 08-31-2022 11:42-0400 Body height 175.26 cm Marycarmen Jennifer [facility] 08-19-2022 10:01-0400 Body height 175.26 cm Marycarmen Jennifer [facility] 08-19-2022 10:01-0400 Body mass index (BMI) [Ratio] 35.4 kg/m2 Marycarmen Jennifer [facility] 08-19-2022 10:01-0400 Body weight 109.03 kg Marycarmen Jennifer [facility] 08-19-2022 10:01-0400 Diastolic blood pressure 79 mm[Hg] Marycarmen [facility] 08-19-2022 10:01-0400 Heart rate 62 /min Marycarmen [facility] 08-19-2022 10:01-0400 Respiratory rate 18 /min Marycarmen Jennifer [facility] 08-19-2022 10:01-0400 Systolic blood pressure 144 mm[Hg] Marycarmen SWAIN [facility] 04-16-2022 12:43-0500 Body height 175.[address] Marycarmen Rodriguez Work Phone: [facility] 04-16-2022 12:43-0500 Body mass index (BMI) [Ratio] 35.2 kg/m2 Dr. Marycarmen Rodriguez Work Phone: [facility] 04-16-2022 12:43-0500 Body temperature 97 [degF] Dr. Marycarmen Rodriguez Work Phone: [facility] 04-16-2022 12:43-0500 Body weight 108.[address] Marycarmen Rodriguez Work Phone: [facility] 04-16-2022 12:43-0500 Diastolic blood pressure 78 mm[Hg] Dr. Marycarmen Rodriguez Work Phone: [facility] 04-16-2022 12:43-0500 Heart rate 66 /min Dr. Marycarmen Rodriguez Work Phone: [facility] 04-16-2022 12:43-0500 Respiratory rate 18 /min Dr. Marycarmen Rodriguez Work Phone: [facility] 04-16-2022 12:43-0500 SaO2% (BldA) [Mass fraction] 94 % Dr. Marycarmen Rodriguez Work Phone: [facility] 04-16-2022 12:43-0500 Systolic blood pressure 125 mm[Hg] Dr. Marycarmen Rodriguez Work Phone: [facility] 04-14-2022 10:27-0500 Body mass index (BMI) [Ratio] 35.2 kg/m2 Dr. Marycarmen Rodriguez Work Phone: [facility] 04-14-2022 10:27-0500 Body weight 108.[address] Marycarmen Rodriguez Work Phone: [facility] 04-14-2022 10:27-0500 Diastolic blood pressure 68 mm[Hg] Dr. Marycarmen Rodriguez Work Phone: [facility] 04-14-2022 10:27-0500 Heart rate 64 /min Dr. Marycarmen Rodriguez Work Phone: [facility] 04-14-2022 10:27-0500 Respiratory rate 18 /min Dr. Marycarmen Rodriguez Work Phone: [facility] 04-14-2022 10:27-0500 Systolic blood pressure 130 mm[Hg] Dr. Marycarmen Rodriguez Work Phone: [facility] 03-27-2022 13:25-0500 Body temperature 97.9 [degF] Dr. Marycarmen Rodriguez Work Phone: [facility] 03-27-2022 13:25-0500 Diastolic blood pressure 86 mm[Hg] Dr. Marycarmen Rodriguez Work Phone: [facility] 03-27-2022 13:25-0500 Heart rate 86 /min Dr. Marycarmen Rodriguez Work Phone: [facility] 03-27-2022 13:25-0500 Respiratory rate 14 /min Dr. Marycarmen Rodriguez Work Phone: [facility] 03-27-2022 13:25-0500 SaO2% (BldA) [Mass fraction] 96 % Dr. Marycarmen Rodriguez Work Phone: [facility] 03-27-2022 13:25-0500 Systolic blood pressure 134 mm[Hg] Dr. Marycarmen Rodriguez Work Phone: [facility] 01-07-2022 11:07-0400 Body mass index (BMI) [Ratio] 34.9 kg/m2 Dr. Marycarmen Rodriguez Work Phone: [facility] Work Phone: 01-07-2022 11:07-0400 Body temperature 97.4 [degF] Dr. Marycarmen Rodriguez Work Phone: [facility] Work Phone: 01-07-2022 11:07-0400 Body weight 107.[address] Marycarmen Rodriguez Work Phone: [facility] Work Phone: 01-07-2022 11:07-0400 Diastolic blood pressure 87 mm[Hg] Dr. Marycarmen Rodriguez Work Phone: [facility] Work Phone: 01-07-2022 11:07-0400 Heart rate 60 /min Dr. Marycarmen Rodriguez Work Phone: [facility] Work Phone: 01-07-2022 11:07-0400 Respiratory rate 16 /min Dr. Marycarmen Rodriguez Work Phone: [facility] Work Phone: 01-07-2022 11:07-0400 SaO2% (BldA) [Mass fraction] 96 % Dr. Marycarmen Rodriguez Work Phone: [facility] Work Phone: 01-07-2022 11:07-0400 Systolic blood pressure 155 mm[Hg] Dr. Marycarmen Rodriguez Work Phone: [facility] Work Phone: 11-21-2021 10:24-0400 Body height 175.[address] Marycarmen Rodriguez Work Phone: [facility] Work Phone: 11-21-2021 10:24-0400 Body mass index (BMI) [Ratio] 34.9 kg/m2 Dr. Marycarmen Rodriguez Work Phone: [facility] Work Phone: 11-21-2021 10:24-0400 Body weight 107.[address] Marycarmen Rodriguez Work Phone: [facility] Work Phone: 11-21-2021 10:24-0400 Diastolic blood pressure 77 mm[Hg] Dr. Marycarmen Rodriguez Work Phone: [facility] Work Phone: 11-21-2021 10:24-0400 Heart rate 61 /min Dr. Marycarmen Rodriguez Work Phone: [facility] Work Phone: 11-21-2021 10:24-0400 Respiratory rate 18 /min Dr. Marycarmen Rodriguez Work Phone: [facility] Work Phone: 11-21-2021 10:24-0400 SaO2% (BldA) [Mass fraction] 97 % Dr. Marycarmen Rodriguez Work Phone: [facility] Work Phone: 11-21-2021 10:24-0400 Systolic blood pressure 138 mm[Hg] Dr. Marycarmen Rodriguez Work Phone: [facility] Work Phone: 11-16-2021 16:49-0400 Diastolic blood pressure 87 mm[Hg] Dr. Marycarmen Rodriguez Work Phone: [facility] Work Phone: 11-16-2021 16:49-0400 Heart rate 53 /min Dr. Marycarmen Rodriguez Work Phone: [facility] Work Phone: 11-16-2021 16:49-0400 Respiratory rate 16 /min Dr. Marycarmen Rodriguez Work Phone: [facility] Work Phone: 11-16-2021 16:49-0400 SaO2% (BldA) [Mass fraction] 93 % Dr. Marycarmen Rodriguez Work Phone: [facility] Work Phone: 11-16-2021 16:49-0400 Systolic blood pressure 117 mm[Hg] Dr. Marycarmen Rodriguez Work Phone: [facility] Work Phone: 11-16-2021 12:55-0400 Body mass index (BMI) [Ratio] 33.2 kg/m2 Dr. Marycarmen Rodriguez Work Phone: [facility] Work Phone: 11-16-2021 12:55-0400 Body temperature 97.6 [degF] Dr. Marycarmen Rodriguez Work Phone: [facility] Work Phone: 11-16-2021 12:55-0400 Body weight 102.[address] Marycarmen Rodriguez Work Phone: [facility] Work Phone: 09-16-2021 10:37-0400 Body height 175.[address] Marycarmen Rodriguez Work Phone: [facility] Work Phone: 09-16-2021 10:37-0400 Body mass index (BMI) [Ratio] 35.7 kg/m2 Dr. Marycarmen Rodriguez Work Phone: [facility] Work Phone: 09-16-2021 10:37-0400 Body weight 109.[address] Marycarmen Rodriguez Work Phone: [facility] Work Phone: 09-16-2021 10:37-0400 Diastolic blood pressure 69 mm[Hg] Dr. Marycarmen Rodriguez Work Phone: [facility] Work Phone: 09-16-2021 10:37-0400 Heart rate 50 /min Dr. Marycarmen Rodriguez Work Phone: [facility] Work Phone: 09-16-2021 10:37-0400 Respiratory rate 18 /min Dr. Marycarmen Rodriguez Work Phone: [facility] Work Phone: 09-16-2021 10:37-0400 Systolic blood pressure 122 mm[Hg] Dr. Marycarmen Rodriguez Work Phone: [facility] Work Phone: 08-01-2021 10:02-0400 Body mass index (BMI) [Ratio] 35.7 kg/m2 Dr. Marycarmen Rodriguez Work Phone: [facility] Work Phone: 08-01-2021 10:02-0400 Body weight 109.[address] Marycarmen Rodriguez Work Phone: [facility] Work Phone: 08-01-2021 10:02-0400 Diastolic blood pressure 81 mm[Hg] Dr. Marycarmen Rodriguez Work Phone: [facility] Work Phone: 08-01-2021 10:02-0400 Heart rate 59 /min Dr. Marycarmen Rodriguez Work Phone: [facility] Work Phone: 08-01-2021 10:02-0400 Respiratory rate 18 /min Dr. Marycarmen Rodriguez Work Phone: [facility] Work Phone: 08-01-2021 10:02-0400 SaO2% (BldA) [Mass fraction] 97 % Dr. Marycarmen Rodriguez Work Phone: [facility] Work Phone: 08-01-2021 10:02-0400 Systolic blood pressure 133 mm[Hg] Dr. Marycarmen Rodriguez Work Phone: [facility] Work Phone: 08-01-2021 10:02-0400 Body height 175.[address] Marycarmen Rodriguez Work Phone: [facility] Work Phone: 08-01-2021 10:02-0400 Body mass index (BMI) [Ratio] 35.7 kg/m2 Dr. Marycarmen Rodriguez Work Phone: [facility] Work Phone: 08-01-2021 10:02-0400 Body weight 109.[address] Marycarmen Rodriguez Work Phone: [facility] Work Phone: 08-01-2021 10:02-0400 Diastolic blood pressure 81 mm[Hg] Dr. Marycarmen Rodriguez Work Phone: [facility] Work Phone: 08-01-2021 10:02-0400 Heart rate 59 /min Dr. Marycarmen Rodriguez Work Phone: [facility] Work Phone: 08-01-2021 10:02-0400 Respiratory rate 18 /min Dr. Marycarmen Rodriguez Work Phone: [facility] Work Phone: 08-01-2021 10:02-0400 SaO2% (BldA) [Mass fraction] 97 % Dr. Marycarmen Rodriguez Work Phone: [facility] Work Phone: 08-01-2021 10:02-0400 Systolic blood pressure 133 mm[Hg] Dr. Marycarmen Rodriguez Work Phone: [facility] Work Phone: 06-10-2021 18:38-0500 Diastolic blood pressure 75 mm[Hg] Dr. Marycarmen Rodriguez Work Phone: [facility] Work Phone: 06-10-2021 18:38-0500 Heart rate 57 /min Dr. Marycarmen Rodriguez Work Phone: [facility] Work Phone: 06-10-2021 18:38-0500 Respiratory rate 14 /min Dr. Marycarmen Rodriguez Work Phone: [facility] Work Phone: 06-10-2021 18:38-0500 SaO2% (BldA) [Mass fraction] 96 % Dr. Marycarmen Rodriguez Work Phone: [facility] Work Phone: 06-10-2021 18:38-0500 Systolic blood pressure 121 mm[Hg] Dr. Marycarmen Rodriguez Work Phone: [facility] Work Phone: 06-10-2021 13:36-0500 Body mass index (BMI) [Ratio] 34 kg/m2 Dr. Marycarmen Rodriguez Work Phone: [facility] Work Phone: 06-10-2021 13:36-0500 Body temperature 97 [degF] Dr. Marycarmen Rodriguez Work Phone: [facility] Work Phone: 06-10-2021 13:36-0500 Body weight 104.[address] Marycarmen Rodriguez Work Phone: [facility] Work Phone: 05-19-2021 16:55-0500 Respiratory rate 16 /min Dr. Marycarmen Rodriguez Work Phone: [facility] Work Phone: 05-19-2021 14:43-0500 Body temperature 96.5 [degF] Dr. Marycarmen Rodriguez Work Phone: [facility] Work Phone: 05-19-2021 14:43-0500 Diastolic blood pressure 94 mm[Hg] Dr. Marycarmen Rodriguez Work Phone: [facility] Work Phone: 05-19-2021 14:43-0500 Heart rate 63 /min Dr. Marycarmen Rodriguez Work Phone: [facility] Work Phone: 05-19-2021 14:43-0500 SaO2% (BldA) [Mass fraction] 99 % Dr. Marycarmen Rodriguez Work Phone: [facility] Work Phone: 05-19-2021 14:43-0500 Systolic blood pressure 172 mm[Hg] Dr. Marycarmen Rodriguez Work Phone: [facility] Work Phone: 05-19-2021 14:42-0500 Body mass index (BMI) [Ratio] 34 kg/m2 Dr. Marycarmen Rodriguez Work Phone: [facility] Work Phone: 05-19-2021 14:42-0500 Body weight 104.[address] Marycarmen Rodriguez Work Phone: [facility] Work Phone: 12-26-2020 10:29-0400 Diastolic blood pressure 76 mm[Hg] Eladio Ingram MD Work Phone: [facility] 12-26-2020 10:29-0400 Systolic blood pressure 141 mm[Hg] Eladio Ingram MD Work Phone: [facility] 12-26-2020 10:24-0400 Body height 175.3 cm Eladio Ingram MD Work Phone: [facility] 12-26-2020 10:24-0400 Body mass index (BMI) [Ratio] 33.67 kg/m2 Eladio Ingram MD Work Phone: [facility] 12-26-2020 10:24-0400 Body weight 103.42 kg Eladio Ingram MD Work Phone: [facility] 12-26-2020 10:24-0400 Heart rate 59 /min Eladio Ingram MD Work Phone: [facility] 12-26-2020 10:24-0400 SaO2% (BldA) [Mass fraction] 95 % Eladio Ingram MD Work Phone: [facility] 10-09-2020 10:53-0400 Diastolic blood pressure 72 mm[Hg] Fernanda Acuña SALES RECEPTIONIST Work Phone: [facility] 10-09-2020 10:53-0400 Systolic blood pressure 134 mm[Hg] Fernanda Acuña SALES RECEPTIONIST Work Phone: [facility] 10-09-2020 09:59-0400 Body mass index (BMI) [Ratio] 34.6 kg/m2 Fernanda Acuña SALES RECEPTIONIST Work Phone: [facility] 10-09-2020 09:59-0400 Body weight 106.28 kg Fernanda Acuña SALES RECEPTIONIST Work Phone: [facility] 10-09-2020 09:59-0400 Heart rate 58 /min Fernanda Acuña SALES RECEPTIONIST Work Phone: [facility] 10-09-2020 09:59-0400 Respiratory rate 16 /min Fernanda Acuña SALES RECEPTIONIST Work Phone: [facility] 10-09-2020 09:59-0400 SaO2% (BldA) [Mass fraction] 94 % Fernanda Acuña CNP Work Phone: [facility] 12-17-2016 11:21-0400 BMI (Body Mass Index) 32.99 kg/m2 Eladio Ingram [facility] Work Phone: 12-17-2016 11:21-0400 BP Diastolic 82 mm[Hg] Eladio Ingram [facility] Work Phone: 12-17-2016 11:21-0400 BP Systolic 150 mm[Hg] Eladio Ingram [facility] Work Phone: 12-17-2016 11:21-0400 Height 175.3 cm Eladio Ingram [facility] Work Phone: 12-17-2016 11:21-0400 Pulse (Heart Rate) 70 /min Eladio Ingram [facility] Work Phone: 12-17-2016 11:21-0400 Pulse Oximetry 97 % Eladio Ingram [facility] Work Phone: 12-17-2016 [id number] Weight 101.33 kg Eladio Ingram [facility] Work Phone: Encounters Encounter Date Encounter Type Care Provider Facility Start: 11-27-2024 ambulatory Jose Hay Facility:[facility] Start: 11-22-2024 Gustabo Pérez ENVIRONMENTAL CONSERVATION OFFICER-C -[employer] [facility] Work Phone: Start: 11-22-2024 ambulatory Marycarmen [facility] Facility: [facility] Start: 11-22-2024 End: 11-22-2024 Gustabo Pérez ENVIRONMENTAL CONSERVATION OFFICER-C -[facility] Work Phone: Start: 11-22-2024 End: 11-22-[address] Marycarmen Rodriguez DO Work Phone: -[facility] Start: 11-20-2024 End: 11-20-[address] Marycarmen Rodriguez DO Work Phone: -Radiology [facility] Start: 11-20-2024 End: 11-20-2024 Dr. Brooks Carpenter MD -Radiology [facility] Work Phone: Start: 11-20-2024 End: 11-20-2024 ambulatory Brooks Carpenter Facility:[facility] Start: 11-13-2024 ambulatory Marycarmen [facility] Facility: [facility] Start: 11-13-2024 Non-patient / Non-visit Dr. Jose colon MD -[facility] Start: 11-13-2024 Dr. Jose Hay MD -[facility] Start: 11-10-2024 End: 11-10-[address] Marycarmen Rodriguez DO Work Phone: -Sleep Lab Start: 11-10-2024 End: 11-10-2024 Patient encounter procedure ENVIRONMENTAL CONSERVATION OFFICER Maren Olivas -Sleep Lab Work Phone: Start: 11-10-2024 End: 11-10-2024 ENVIRONMENTAL CONSERVATION OFFICER Maren Olivas -Sleep Lab Work Phone: Start: 11-10-2024 ambulatory Marycarmen [facility] Facility: [facility] Start: 11-10-2024 Non-patient / Non-visit Dr. Lance pereira MD -[facility] Work Phone: Start: 11-10-2024 Dr. Lance Rodriguez MD -[facility] Work Phone: Start: 11-10-2024 End: 11-10-[address] Marycarmen Rodriguez DO Work Phone: -Cardiovascular Services Start: 11-10-2024 End: 11-10-2024 Patient encounter procedure Gustabo Pérez ENVIRONMENTAL CONSERVATION OFFICER-C -Cardiovascular Services Work Phone: Start: 11-10-2024 End: 11-10-2024 Gustabo Pérez ENVIRONMENTAL CONSERVATION OFFICER-C -Cardiovascular Services Work Phone: Start: 11-09-2024 End: 11-10-[address] Marycarmen Rodriguez DO Work Phone: -Laboratory Ritesh Calvillo [facility] Start: 11-09-2024 End: 11-09-[address] Marycarmen Rodriguez DO -Laboratory Ritesh Calvillo [facility] Start: 11-09-2024 End: 11-09-2024 Dr. Marycarmen Rodriguez DO -Laboratory Ritesh Calvillo [facility] Start: 11-09-2024 End: 11-09-2024 ambulatory Marycarmen Rodriguez Facility:[facility] Start: 10-31-2024 End: 10-31-2024 Patient encounter procedure ENVIRONMENTAL CONSERVATION OFFICER Maren Olivas -[facility] Work Phone: Start: 10-31-2024 End: 10-31-2024 ENVIRONMENTAL CONSERVATION OFFICER Maren Olivas -[facility] Work Phone: Start: 10-31-2024 End: 10-31-[address] Marycarmen Rodriguez DO Work Phone: -[facility] Start: 10-26-2024 End: 10-26-[address] Marycarmen Rodriguez DO Work Phone: -Sleep Lab Start: 10-26-2024 End: 10-26-2024 Patient encounter procedure Marni Horn ENVIRONMENTAL CONSERVATION OFFICER-C -Sleep Lab Work Phone: Start: 10-26-2024 End: 10-26-2024 Marni Horn ENVIRONMENTAL CONSERVATION OFFICER-C -Sleep Lab Work Phone: Start: 10-25-2024 End: 10-25-2024 Patient encounter procedure Gustabo Gao Beto ENVIRONMENTAL CONSERVATION OFFICER-C -[facility] Work Phone: Start: 10-25-2024 End: 10-25-2024 Gustabo Gao Beto ENVIRONMENTAL CONSERVATION OFFICER-C -[facility] Work Phone: Start: 10-25-2024 End: 10-26-[address] Marycarmen Rodriguez DO Work Phone: [facility] Work Phone: Start: 10-18-2024 End: 10-18-[address] Marycarmen Rodriguez DO Work Phone: [facility] Work Phone: Start: 10-18-2024 End: 10-18-2024 Patient encounter procedure Marni Horn ENVIRONMENTAL CONSERVATION OFFICER-C -Sleep Lab Work Phone: Start: 10-18-2024 End: 10-18-2024 Marni Horn ENVIRONMENTAL CONSERVATION OFFICER-C -Sleep Lab Work Phone: Start: 10-18-2024 End: 10-18-[address] Marycarmen Rodriguez DO Work Phone: [facility] Work Phone: Start: 10-18-2024 End: 10-18-[address] Brooks Carpenter MD -Laboratory Work Phone: Start: 10-18-2024 End: 10-18-2024 Dr. Brooks Carpenter MD -Laboratory Work Phone: Start: 10-18-2024 End: 10-18-2024 ambulatory Marycarmen Rodriguez Facility:[facility] Start: 09-29-2024 End: 09-29-[address] Marycarmen Rodriguez DO Work Phone: [facility] Work Phone: Start: 09-29-2024 End: 09-29-[address] Marycarmen Rodriguez DO -Laboratory [facility] Work Phone: Start: 09-29-2024 End: 09-29-2024 Dr. Marycarmen Rodriguez DO -Laboratory [facility] Work Phone: Start: 09-29-2024 End: 09-29-2024 ambulatory Marycarmen Jennifer Facility:[facility] Start: 09-22-2024 End: 09-22-[address] Marycarmen Rodriguez DO Work Phone: [facility] Work Phone: Start: 09-22-2024 End: 09-22-2024 Patient encounter procedure Marni Horn ENVIRONMENTAL CONSERVATION OFFICER-C -Sleep Lab Work Phone: Start: 09-22-2024 End: 09-22-2024 Marni Horn ENVIRONMENTAL CONSERVATION OFFICER-C -Sleep Lab Work Phone: Start: 09-22-2024 End: 09-22-2024 ambulatory [facility] Facility:[facility] Start: 09-20-2024 End: 09-20-[address] Marycarmen Rodriguez DO Work Phone: [facility] Work Phone: Start: 09-20-2024 End: 09-20-2024 Patient encounter procedure ELIAZAR Olivas -Laboratory Work Phone: Start: 09-20-2024 End: 09-20-2024 ENVIRONMENTAL CONSERVATION OFFICER Maren Olivas -Laboratory Work Phone: Start: 09-20-2024 End: 09-20-2024 Patient encounter procedure ENVIRONMENTAL CONSERVATION OFFICER Maren Olivas -[facility] Work Phone: Start: 09-20-2024 End: 09-20-2024 ELIAZAR Olivas -[facility] Work Phone: Start: 09-20-2024 End: 09-20-[address] Marycarmen Rodriguez DO Work Phone: [facility] Work Phone: Start: 09-20-2024 End: 09-20-2024 ambulatory Marycarmen [facility] Facility:[facility] Start: 08-03-2024 End: 08-03-[address] Marycarmen Rodriguez DO Work Phone: [facility] Work Phone: Start: 08-03-2024 End: 08-03-2024 Patient encounter procedure Marni Horn ENVIRONMENTAL CONSERVATION OFFICER-C -Sleep Lab Work Phone: Start: 08-03-2024 End: 08-03-2024 Marni Horn ENVIRONMENTAL CONSERVATION OFFICER-C -Sleep Lab Work Phone: Start: 08-03-2024 End: 08-03-2024 ambulatory [facility] Facility:[facility] Start: 07-18-2024 ambulatory Marycarmen [facility] Facility: [facility] Start: 07-18-2024 Non-patient / Non-visit Dr. Zen Olguin own DO -[facility] Start: 07-18-2024 End: 07-18-[address] Marycarmen Rodriguez DO Work Phone: [facility] Work Phone: Start: 07-18-2024 End: 07-18-2024 Patient encounter procedure Marni PRAKASHC -Pulmonary Services/Neurology Work Phone: Start: 07-17-2024 Non-patient / Non-visit Dr. Zen Olguin own DO -[facility] Start: 07-17-2024 End: 07-18-[address] Marycarmen Rodriguez DO Work Phone: [facility] Work Phone: Start: 07-17-2024 End: 07-17-2024 Patient encounter procedure Marni Horn NP-C -Sleep Lab Work Phone: Start: 07-17-2024 End: 07-17-2024 ambulatory [facility] Facility:[facility] Start: 07-07-2024 End: 07-07-[address] Marycarmen Rodriguez DO Work Phone: [facility] Work Phone: Start: 07-07-2024 End: 07-07-2024 Patient encounter procedure Marni POOL -Sleep Lab Work Phone: Start: 07-07-2024 End: 07-07-2024 ambulatory [facility] Facility:[facility] Start: 07-03-2024 End: 07-03-2024 Patient encounter procedure Marni Horn ENVIRONMENTAL CONSERVATION OFFICER-Jaziel -[facility] Work Phone: Start: 07-03-2024 End: 07-03-2024 ambulatory [facility] Facility:[facility] Start: 06-30-2024 End: 06-30-[address] Marycarmen Rodriguez DO Work Phone: [facility] Work Phone: Start: 06-30-2024 End: 06-30-2024 Patient encounter procedure Ritesh Laurent Start: 06-30-2024 End: 06-30-2024 ambulatory [facility] Facility:[facility] Start: 04-17-2024 End: 04-17-2024 Patient encounter procedure Gustabo POOL -[facility] Work Phone: Start: 04-17-2024 End: 04-17-2024 ambulatory [facility] Facility:[facility] Start: 04-17-2024 End: 04-17-2024 ambulatory [facility] Facility:[facility] Start: 03-27-2024 End: 03-27-[address] Jose Hay MD -[facility] Work Phone: Start: 03-27-2024 End: 03-27-2024 ambulatory [facility] Facility:[facility] Start: 03-23-2024 End: 03-23-2024 Patient encounter procedure Ritesh Laurent [facility] Start: 03-23-2024 End: 03-23-2024 ambulatory Marycarmen Rodriguez Facility:[facility] Start: 03-20-2024 End: 03-20-[address] Jose Hay MD -[facility] Work Phone: Start: 03-20-2024 End: 03-20-2024 ambulatory Marycarmen Rodriguez Facility:[facility] Start: 05-07-2023 End: 05-07-2023 ambulatory [facility] Work Phone: Start: 05-07-2023 End: 05-07-2023 Patient encounter procedure [facility] [place] Start: 12-29-2022 Non-patient / Non-visit Dr. Ap Rodriguez Work Phone: [facility] Work Phone: Start: 12-28-2022 Non-patient / Non-visit Dr. Ap Rodriguez Work Phone: [facility] Start: 12-28-2022 End: 12-28-[address] Marycarmen Rodriguez Work Phone: [facility] Work Phone: Start: 12-28-2022 End: 12-28-[address] Marycarmen Rodriguez Work Phone: [facility]-Cardiovascula r Services Work Phone: Start: 12-21-2022 End: 12-21-2022 Admission to same day surgery center Dr. Marycarmen Rodriguez Work Phone: [facility]-Supervisor [employer]/Special Procedures Work Phone: Start: 12-21-2022 End: 12-21-[address] Marycarmen Rodriguez Work Phone: [facility] Work Phone: Start: 12-15-2022 End: 12-15-[address] Marycarmen Rodriguez Work Phone: [facility] Work Phone: Start: 12-15-2022 End: 12-15-[address] Marycarmen Rodriguez Work Phone: [facility]-Laboratory Work Phone: Start: 12-15-2022 End: 12-15-[address] Marycarmen Rodriguez Work Phone: [facility] Work Phone: Start: 10-16-2022 End: 10-16-2022 ambulatory Marycarmen Rodriguez [facility] Work Phone: Start: 10-16-2022 End: 10-16-2022 Patient encounter procedure Marycarmen SWAIN [facility]-Pulmonary Services/Neurology Start: 10-13-2022 End: 10-13-2022 ambulatory Marycarmen Rodriguez [facility] Work Phone: Start: 10-13-2022 End: 10-13-2022 Patient encounter procedure Marycarmen Rodriguez [facility] Start: 09-21-2022 Non-patient / Non-visit Marycarmen gifford [facility] Inpatient Physicians Start: 09-20-2022 Non-patient / Non-visit Marycarmen gifford [facility] Inpatient Physicians Start: 09-19-2022 Non-patient / Non-visit Marycarmen gifford [facility] Inpatient Physicians Start: 09-18-2022 Non-patient / Non-visit Marycarmen gifford [facility] Start: 09-17-2022 End: 09-17-2022 Non-patient / Non-visit Marycarmen SWAIN [facility] Inpatient Physicians Start: 09-17-2022 End: 09-21-2022 Evaluation and management of inpatient Marycarmen Rodriguez [facility]-Progressive Care Unit Start: 09-09-2022 Non-patient / Non-visit Marycarmen gifford [facility] Start: 09-01-2022 Non-patient / Non-visit Marycarmen Porter ирина [facility] Start: 08-31-2022 End: 08-31-2022 Non-patient / Non-visit Marycarmen SWAIN [facility] Start: 08-31-2022 Non-patient / Non-visit Marycarmen gifford [facility] Start: 08-31-2022 End: 09-01-2022 Evaluation and management of inpatient Marycarmen Jennifer [facility]-Progressive Care Unit Start: 08-31-2022 End: 09-01-2022 observation encounter [facility] Work Phone: Start: 08-19-2022 End: 08-19-2022 ambulatory [facility] Work Phone: Start: 08-19-2022 End: 08-19-2022 Patient encounter procedure Marycarmen Jennifer [facility] Start: 08-11-2022 Non-patient / Non-visit Marycarmen adrián gifford [facility] Start: 06-11-2022 End: 06-11-[address] Marycarmen Rodriguez Work Phone: [facility] Work Phone: Start: 06-11-2022 End: 06-11-[address] Marycarmen Rodriguez Work Phone: [facility] Start: 04-21-2022 Non-patient / Non-visit Dr. Ap Rodriguez Work Phone: [facility] Start: 04-21-2022 End: 04-21-[address] Marycarmen Rodriguez Work Phone: [facility] Work Phone: Start: 04-21-2022 End: 04-21-[address] Marycarmen Rodriguez Work Phone: [facility]-Cardiovascula r Services Start: 04-16-2022 End: 04-16-[address] Marycarmen Rodriguez [facility] Start: 04-14-2022 End: 04-14-[address] Marycarmen Rodriguez Work Phone: [facility] Work Phone: Start: 04-14-2022 End: 04-14-[address] Marycarmen Rodriguez [facility] Start: 04-14-2022 End: 04-14-[address] Marycarmen Rodriguez Work Phone: [facility] Start: 03-27-2022 End: 03-27-[address] Marycarmen Rodriguez Work Phone: [facility] Start: 01-20-2022 End: 01-20-[address] Marycarmen Rodriguez Work Phone: [facility] Start: 01-07-2022 End: 01-07-[address] Marycarmen Rodriguez [facility] Phone: [facility] Start: 11-27-2021 Non-patient / Non-visit Dr. Ap Rodriguez Work Phone: [facility] Start: 11-26-2021 End: 11-26-[address] Marycarmen Rodriguez Work Phone: [facility]-Pulmonary Services/Neurology Start: 11-21-2021 End: 11-21-[address] Marycarmen Rodriguez Work Phone: [facility] Start: 11-16-2021 End: 11-16-2021 Emergency department patient visit Dr. Marycarmen Rodriguez Work Phone: [facility]-Emergency Department Start: 10-28-2021 End: 10-28-[address] Marycarmen Rodriguez Work Phone: [facility]-Laboratory, [place] Start: 09-16-2021 End: 09-16-[address] Marycarmen Rodriguez Work Phone: [facility]-Radiology, [facility] Start: 09-16-2021 End: 09-16-[address] Marycarmen Rodriguez Work Phone: [facility] Start: 08-15-2021 Non-patient / Non-visit Dr. Ap Rodriguez Work Phone: [facility] Start: 08-15-2021 Non-patient / Non-visit Dr. Ap Rodriguez Work Phone: [facility] Start: 08-15-2021 End: 08-15-[address] Marycarmen Rodriguez Work Phone: [facility]-Cardiovascula r Services Start: 08-01-2021 End: 08-01-[address] Marycarmen Rodriguez Work Phone: [facility] Start: 06-10-2021 End: 06-10-2021 Emergency department patient visit Dr. Marycarmen Rodriguez Work Phone: [facility]-Emergency Department Start: 05-19-2021 End: 05-19-2021 Emergency department patient visit Dr. Marycarmen Rodriguez Work Phone: [facility]-Emergency Department Start: 05-16-2021 End: 05-16-[address] 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) (Primary Dx) Start: 12-31-2020 Admission to [facility] Eladio Ingram MD [facility] Comment on above: Chest pain, unspecif ied type (Primary Dx) Start: 12-26-2020 End: 12-30-2020 Orders Only Justa Euceda RN [facility] Office Start: 12-26-2020 End: 12-26-2020 Office outpatient visit 25 minutes Marycarmen Padron [facility] DO Work Phone: [facility] [place] [facility] Comment on above: Essential hypertensi on (Primary Dx); Atherosclerosis of [place] coronary artery with angina pectoris, unspecified whether [place] or transplanted heart (HCC); Coronary artery disease involving [place] coronary artery of [place] heart with angina pectoris (HCC); Mixed hyperlipidemia Start: 12-18-2020 ambulatory MIN SZYMANSKICHUY [facility] Start: 10-15-2020 End: 10-16-2020 [facility] Start: 10-15-2020 End: 10-15-2020 Subsequent hospital visit by physician Eladio Ingram MD Work Phone: [facility] Comment on above: Arrived Start: 10-10-2020 ambulatory FERNANDA ACUÑA [facility] Ambulatory Start: 10-09-2020 End: 10-09-2020 Orders Only Fernanda Acuña CNP Work Phone: [place] [facility] Comment on above: DEAN (dyspnea on exer tion) (Primary Dx) Start: 10-09-2020 End: 10-09-2020 Office outpatient new 45 minutes Fernanda Acuña CNP Work Phone: [facility] Office Comment on above: DEAN (dyspnea on exer tion); Essential hypertension; Type 2 diabetes mellitus without complication, without long-term current use of insulin (HCC); MATTHEW (obstructive sleep apnea); Coronary artery disease involving [place] coronary artery of [place] heart without angina pectoris Start: 10-04-2020 End: 10-04-2020 Orders Only Deisi March RN [facility] Office Comment on above: Shortness of breath (Primary Dx) Start: 12-17-2016 Office/outpatient vi sit, est, level 4 Eladio Ingram Work Phone: [facility] Start: 11-28-2016 End: 11-28-2016 Patient encounter procedure [facility] Procedures Date Procedure Procedure Detail Performing Clinician Start: 11-22-2024 X-ray of chest, PA a nd lateral views Dr. Marycarmen Rodriguez DO Work Phone: Start: 11-22-2024 Blood count smear mc rscp w/mnl difrntl wbc count Dr. Marycarmen Rodriguez DO Work Phone: Start: 11-22-2024 Mean corpuscular hemoglobin concentration determination Dr. Marycarmen Rodriguez DO Work Phone: Start: 11-22-2024 Nucleated red blood cell count procedure Dr. Marycarmen Rodriguez DO Work Phone: Start: 11-22-2024 Platelet mean volume determination Dr. Marycarmen Rodriguez DO Work Phone: Start: 11-20-2024 Plain X-ray of shoulder Dr. Marycarmen Rodriguez DO Work Phone: Start: 11-10-2024 Cardiovascular stres s test using pharmacologic stress agent Dr. Marycarmen Rodriguez DO Work Phone: Start: 11-09-2024 Blood count smear mc rscp w/mnl difrntl wbc count Dr. Marycarmen Rodriguez DO Work Phone: Start: 11-09-2024 Mean corpuscular hemoglobin concentration determination Dr. Marycarmen Rodriguez DO Work Phone: Start: 11-09-2024 Nucleated red blood cell count procedure Dr. Marycarmen Rodriguez DO Work Phone: Start: 11-09-2024 Platelet mean volume determination Dr. Marycarmen Rodriguez DO Work Phone: Start: 10-18-2024 Blood count smear mc rscp w/mnl difrntl wbc count Dr. Marycarmen Rodriguez DO Work Phone: Start: 10-18-2024 Mean corpuscular hemoglobin concentration determination Dr. Marycarmen Rodriguez DO Work Phone: Start: 10-18-2024 Nucleated red blood cell count procedure Dr. Marycarmen Rodriguez DO Work Phone: Start: 10-18-2024 Platelet mean volume determination Dr. Marycarmen Rodriguez DO Work Phone: Start: 10-18-2024 Benzodiazepine measurement, urine Dr. Marycarmen Rodriguez DO Work Phone: Start: 10-18-2024 Cocaine measurement, urine Dr. Marycarmen Rodriguez DO Work Phone: Start: 10-18-2024 Methadone measuremen t, urine Dr. Marycarmen Rodriguez DO Work Phone: Start: 10-18-[address] Marycarmen adler DO Work Phone: Comment on above: Test Ordered: [id number] Screen, Urine Negative ng/mL UI Reference Range: Xcqnkh=628Tuyjbkqaslj test includes Amphetamine and Methamphetamine.Barbiturates Negative ng/mL UI Reference Range: Ufpxeu=241Cwhhhiyvwmjevqs Negative ng/mL UI Reference Range: Lqrbpy=260Rkegaee (Metab.), Urine Negative ng/mL UI Reference Range: Fqpsaw=686Woxdhhg Note: ng/mL UI See Final Results Reference Range: Fewdsn=137Uvnblg test includes Codeine, Morphine, Hydromorphone, Hydrocodone.Opiates Positive [A ] UI Reference Range: Wixuti=960Kktzal test includes Codeine, Morphine, Hydromorphone, Hydrocodone.Codeine Negative UI Reference Range: Siojgd=244Sboutemo Negative UI Reference Range: Spdizu=800Cymiiewguslus Negative UI Reference Range: Ivjnpv=950Tahlminfuzg Positive [A ] UI Reference Range: .Hydrocodone Conf, MS, UR 349 ng/mL UI Reference Range: Xnvgay=8256-Prpuqqoacpbbzh, Urine Negative ng/mL UI Reference Range: Cutoff=10Oxycodone/Oxymorphone, Urine Negative ng/mL UI Reference Range: Qfmbir=773Gzca includes Oxycodone and OxymorphonePCP, Urine Negative ng/mL UI Reference Range: Cutoff=25Methadone Screen, Urine Negative ng/mL UI Reference Range: Vihfkz=108Fkvdibybpzbf, Urine Negative ng/mL UI Reference Range: Gpffji=131Qggeivud, Urine Negative ng/mL UI Reference Range: Cutoff=2.0Test includes Fentanyl and NorfentanylThis test was developed and its performance characteristicsdetermined by [facility]. It has not been cleared orapproved by the Food and Drug Administration.Tramadol Negative ng/mL UI Reference Range: Yutfpk=219Qvkbtzaskjbsd, Urine Negative ng/mL UI Reference Range: Cutoff=10Creatinine, Urine 36.9 mg/dL UI Reference Range: 20.0-300.0pH, Urine 6.1 UI Reference Range: 4.5-8.9Performed at: [facility] [id number] [place], [place] [id number] Director: Erik Wallis PhD, Phone: [phone] at: [address] [id number] Director: Bharath Hawthorne PhD, Phone: [phone] Start: 10-18-[address] Marycarmen Rodriguez DO Work Phone: Start: 10-18-[address] Marycarmen Rodriguez DO Work Phone: Start: 09-29-2024 Blood count smear rscp w/mnl difrntl wbc count Dr. Marycarmen Rodriguez DO Work Phone: Start: 09-29-2024 Mean corpuscular hemoglobin concentration determination Dr. Marycarmen Rodriguez DO Work Phone: Start: 09-29-2024 Nucleated red blood cell count procedure Dr. Marycarmen Rodriguez DO Work Phone: Start: 09-29-2024 Platelet mean volume determination Dr. Marycarmen Rodriguez DO Work Phone: Start: 09-20-2024 Blood count smear mc rscp w/mnl difrntl wbc count Dr. Marycarmen Rodriguez DO Work Phone: Start: 09-20-2024 Mean corpuscular hemoglobin concentration determination Dr. Marycarmen Rodriguez DO Work Phone: Start: 09-20-2024 Nucleated red blood cell count procedure Dr. Marycarmen Rodriguez DO Work Phone: Start: 09-20-2024 Platelet mean volume determination Dr. Marycarmen Rodriguez DO Work Phone: Start: 09-21-2022 Viral antigen assay Matilda SWAIN [...] Phone: Start: 10-15-2020 TTE w or wo roc wcnilesh,Candida Ingram MD Work Phone: Start: 10-09-2020 Ecg routine ecg w/le ast 12 lds w/i&r Fernanda Silvia Acuña SALES RECEPTIONIST Work Phone: Start: 08-18-2018 History of percutane ous transluminal coronary angioplasty History of percutaneous transluminal coronary angioplasty Dr. 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 Alexandr Mcclain Start: 08-13-2017 History of placement of stent for coronary artery disease History of coronary artery stent placement Dr. 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 Procedure aborted. 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8228PNS-RWZC-Mi and Stent-Mid RCA x 2 Multi Link Mini Vision Rx Stent 4.0 x 28 mm 01/21/2006 Plan of Treatment Date Care Activity Detail Author Start: 11-22-2024 Evaluation of diagnostic study results [facility] Start: 10-25-2024 Evaluation of diagnostic study results [facility] Start: 07-25-2024 Walking distance 6 minutes [facility] Start: 07-17-2024 Measurement of respiratory function [facility] Start: 12-21-2022 Patient discharge [facility] Start: 10-05-2022 Measurement of respiratory function [facility] Start: 09-21-2022 Patient discharge [facility] Start: 09-20-2022 Telepractice consultation [facility] Start: 09-18-2022 Following clinical pathway protocol [facility] Start: 09-17-2022 Aspiration precautions [facility] Start: 09-17-2022 Assessment of risk of venous thromboembolism [facility] Start: 09-17-2022 Cardiac monitoring [facility] Start: 09-17-2022 Care regimes management [facility] Start: 09-17-2022 Catheterization of vein [facility] Start: 09-17-2022 Continuous positive airway pressure ventilation treatment [facility] Start: 09-17-2022 Continuous pulse oximetry [facility] Start: 09-17-2022 Elevation of head of bed [facility] Start: 09-17-2022 Exercises [facility] Start: 09-17-2022 Fall prevention [facility] Start: 09-17-2022 Implementation of planned interventions [facility] Start: 09-17-2022 Inhalation therapy procedure [facility] Start: 09-17-2022 Insertion of catheter into peripheral vein [facility] Start: 09-17-2022 Introduction of urinary catheter [facility] Start: 09-17-2022 Measuring intake and output [facility] Start: 09-17-2022 Notification of physician [facility] Start: 09-17-2022 Oxygen therapy [facility] Start: 09-17-2022 End: 09-18-2022 Patient referral to dietitian [facility] Start: 09-17-2022 Providing care according to standard [facility] Start: 09-17-2022 Provision of activity privileges [facility] Start: 09-17-2022 Referral to occupational therapist [facility] Start: 09-17-2022 Referral to service [facility] Start: 09-17-2022 Speech therapy assessment [facility] Start: 09-17-2022 Tobacco use cessation education [facility] Start: 09-17-2022 [facility] Start: 09-17-2022 Admission procedure [facility] Start: 09-01-2022 Patient discharge [facility] Start: 08-31-2022 Patient referral [facility] Work Phone: Start: 08-31-2022 Following clinical pathway protocol [facility] Start: 08-31-2022 Pulse taking [facility] Start: 08-31-2022 Cardiac monitoring [facility] Start: 08-31-2022 Cardiac rehabilitation - phase 1 [facility] Start: 08-31-2022 Cardiac rehabilitation - phase 2 [facility] Start: 08-31-2022 Notification of physician [facility] Start: 08-31-2022 Oxygen therapy [facility] Start: 08-31-2022 Patient discharge [facility] Start: 08-31-2022 Taking patient vital signs [facility] Start: 08-31-2022 Vascular disease risk assessment [facility] Start: 08-31-2022 Vital signs measurements [facility] Start: 08-31-2022 End: 08-31-2022 [facility] Start: 08-31-2022 Admission procedure [facility] Start: 11-16-2021 [facility] Work Phone: Start: 01-10-2021 End: 01-10-2021 Admission to same day surgery center 01/10/2021 Surgery Cardiology Eladio Ingram MD [address] [facility] [address] [place] [address] Left Heart Cath Possible PTCA/Stent [facility] 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 [employer] Comment on above: Left Heart Cath Possible PTCA/Stent Start: 01-10-2021 Subsequent hospital visit by physician 01/10/2021 Hospital Encounter Eladio Ingram MD [address] [facility] [address] [place] [address] [facility] Procedural Care Unit Start: 01-01-2021 Influenza vaccination [facility] Start: 12-26-2020 End: 12-26-2020 Patient encounter procedure 12/26/2020 Office Visit Cardiology Marycarmen Rodriguez, DO [address] [place] [address] [place] [address] [phone] Eladio Ingram MD [address] [facility] [address] [place] [address] [phone] [facility] Office Start: 10-15-2020 End: 10-15-2020 Patient encounter procedure 10/15/2020 Appointment Cardiology Eladio Ingram MD [address] [facility] [address] [place] [address] [phone] [facility] Start: 10-09-2020 End: 10-09-2020 Patient encounter procedure 10/09/2020 Office Visit Cardiology Fernanda Acuña, SALES RECEPTIONIST [address] [place] [address] [phone] [facility] Office Start: 11-05-2017 Prostate specific antigen measurement PSA Level [facility] Start: 06-01-2017 HEMOGLOBIN A1C HEMOGLOBIN A1C [facility] Work Phone: Start: 06-01-2017 Hemoglobin A1c measurement A1C [facility] Start: 06-01-2017 Hemoglobin A1c/Hemoglobin.total mass fraction (Bld) HEMOGLOBIN A1C [facility] Work Phone: Start: 01-01-2017 SEQUENTIAL INFLUENZA VACCINE (#1) SEQUENTIAL INFLUENZA VACCINE (#1) [facility] Work Phone: Start: 12-17-2016 Ambulatory 12/17/2016 Office Visit Cardiology Eladio Ingram MD [address] [facility] [address] [place] [address] [phone] [facility] Start: 2010 ABDOMINAL AORTIC ULTRASOUND ABDOMINAL AORTIC ULTRASOUND [facility] Work Phone: Start: 2010 Fall risk assessment Falls Risk Assessment [facility] Start: 2010 PNEUMOCOCCAL VACCINE AGE 65+ (1 of 2 - PCV13) PNEUMOCOCCAL VACCINE AGE 65+ (1 of 2 - PCV13) [facility] Work Phone: Start: 2005 Zoster vacc, sc ZOSTER VACCINE [facility] Work Phone: Start: 08-01-1995 Administration of herpes zoster vaccine Zoster Vaccines (1 of 2) [facility] Start: 08-01-1995 Screening for malignant neoplasm of colon [facility] Start: 08-01-1963 Hepatitis C screening Hepatitis C Screening [facility] Start: 1957 COVID-19 Vaccine (1) COVID-19 Vaccine (1) [facility] Start: 08-01-1955 3 comp foot exam completed FOOT EXAM [facility] Work Phone: Start: 08-01-1955 Albumin Test strip detection limit <= 20 mg/L mass conc (U) URINE MICROALBUMIN [facility] Work Phone: Start: 08-01-1955 Diabetic foot examination Foot Exam [facility] Start: 08-01-1955 Microalbumin measurement, urine, quantitative Urine Microalbumin [facility] Start: 08-01-1955 Ophthalmic examination and evaluation OPHTHALMOLOGY EXAM [facility] Start: 08-01-1955 FOOT EXAM FOOT EXAM [facility] Work Phone: Start: 08-01-1955 OPHTHALMOLOGY EXAM OPHTHALMOLOGY EXAM [facility] Work Phone: Start: 08-01-1955 URINE MICROALBUMIN URINE MICROALBUMIN [facility] Work Phone: Start: 08-01-1951 Pneumococcal Vaccine: Age 65+ (1 of 2 - PPSV23) Pneumococcal Vaccine: Age 65+ (1 of 2 - PPSV23) [facility] Start: 1948 History and physical examination, annual for health maintenance Wellness Visit [facility] Start: 1945 Colonoscopy COLONOSCOPY [facility] Work Phone: Start: 1945 Tetanus vaccination Tetanus: Every 10yrs [facility] Start: 1945 Colonoscopy COLONOSCOPY [facility] Work Phone: Start: 1945 End: 1945 HEPATITIS C SCREENING HEPATITIS C SCREENING [facility] Work Phone: Start: 1945 End: 1945 TETANUS EVERY 10 YR TETANUS EVERY 10 YR [facility] Work Phone: End: 12-26-2021 Basic metabolic 2000 panel - Serum or Plasma Basic metabolic panel Lab Routine Atherosclerosis of [place] coronary artery with angina pectoris, unspecified whether [place] or transplanted heart (HCC) Essential hypertension 1 Occurrences starting 12/26/2020 until 12/26/2021 [facility] Comment on above: 1 Occurrences starting 12/26/2020 until 12/26/2021 Basic metabolic 2000 panel - Serum or Plasma Basic metabolic panel Lab Routine Atherosclerosis of [place] coronary artery with angina pectoris, unspecified whether [place] or transplanted heart (HCC) Essential hypertension 12/26/2020 11:28 AM EDT [facility] Basic metabolic 2007 panel with ionized calcium - Serum or Plasma [facility] Basic metabolic 2007 panel with ionized calcium - Serum or Plasma [facility] End: 12-17-2017 Basic metabolic panel [AGGREGATE] Basic metabolic panel Routine MATTHEW (obstructive sleep apnea) Coronary artery disease involving [place] coronary artery of [place] heart without angina pectoris 1 Occurrences starting 12/17/2016 until 12/17/2017 [facility] Work Phone: Blood chemistry [facility] Catheterization of [facility] Catheterization of [facility] Catheterization of [facility] CBC W Auto Different ial panel - Blood [facility] CBC W Auto Different ial panel - [facility] End: 12-26-2021 Complete blood count with white cell differential, manual CBC and differential Lab Routine Atherosclerosis of [place] coronary artery with angina pectoris, unspecified whether [place] or transplanted heart (HCC) Essential hypertension 1 Occurrences starting 12/26/2020 until 12/26/2021 [facility] Work Phone: Comment on above: 1 Occurrences starting 12/26/2020 until 12/26/2021 Complete blood count with white cell differential, manual CBC and differential Lab Routine Atherosclerosis of [place] coronary artery with angina pectoris, unspecified whether [place] or transplanted heart (HCC) Essential hypertension 12/26/2020 11:28 AM EDT [facility] End: 01-10-2022 CT Angiogram Aorta Chest Abdomen Pelvis CT Angiogram Aorta Chest Abdomen Pelvis Imaging Routine Coronary artery disease involving [place] coronary artery of [place] heart with angina pectoris (HCC) 1 Occurrences starting 01/10/2021 until 01/10/2022 [facility] Work Phone: Comment on above: 1 Occurrences starting 01/10/2021 until 01/10/2022 End: 12-04-2021 Echocardiography Echocardiogram complete Echocardiography Routine Shortness of breath 1 Occurrences starting 10/04/2020 until 12/04/2021 [facility] Comment on above: 1 Occurrences starting 10/04/2020 until 12/04/2021 LEFT HEART CATH POSS IBLE PTCA/STENT LEFT HEART CATH POSSIBLE PTCA/STENT [facility] End: 12-17-2017 Magnesium Magnesium Routine MATTHEW (obstructive sleep apnea) Coronary artery disease involving [place] coronary artery of [place] heart without angina pectoris 1 Occurrences starting 12/17/2016 until 12/17/2017 [facility] Work Phone: Measurement of respiratory function [facility] Work Phone: Natriuretic peptide. B prohormone N-Terminal [Mass/volume] in Serum or Plasma [facility] Natriuretic peptide. B prohormone N-Terminal [Mass/volume] in Serum or Plasma [facility] NM Heart Views W str ess and W radionuclide IV [facility] Patient Education [facility] Work Phone: Patient referral [facility] Work Phone: [facility] XR Chest PA and Lateral [facility] Immunizations Immunization Date Immunization Notes Care Provider [facility] 02-20-[address] Marycarmen Rodriguez Work Phone: [facility] 02-14-[address] Marycarmen Rodriguez Work Phone: [facility] 01-31-[address] Marycarmen Rodriguez Work Phone: [facility] 11-29-2016 HEMOGLOBIN A1C [facility] Work Phone: Payers Date Payer Category Payer Self-pay [id number] 2019 Unknown [id number] 1. [id number] 2019 Unknown [id number] 2012 Unknown [id number] 2.1 6.840.1.368035.3.249.13 2010 Medicare [id number] 2.16 .840.1.655002.3.249.13 2010 Medicare [id number] 1.2 .840.683480.1.13.385.2.7.3.274645.315 2010 Medicare [id number] 2010 Medicare [id number] 1945 Unknown [id number] 2.16 840.1.839132.3.579.2.594 1945 Unknown [id number] 2.16. 840.1.576222.3.579.2.902 1945 Unknown [id number] 2.16 840.1.024549.3.579.2.903 1945 Unknown [id number] 2. 840.1.954951.3.579.2.903 1945 Unknown [id number] 2. 840.1.518956.3.579.2.903 1945 Unknown [id number] 2.16. 840.1.653511.3.579.2.903 1945 Unknown [id number] 2.16 840.1.238438.3.579.2.903 1945 Unknown [id number] 2.16 840.1.365931.3.579.2.903 1945 Unknown [id number] 2.16 840.1.466466.3.579.2.903 1945 Unknown [id number] 2.16 840.1.382938.3.579.2.903 Unknown [id number] 2.16.8 40.1.932441.3.579.2.462 Unknown [id number] 2.16.8 40.1.865581.3.579.2.462 Unknown [id number] 2.16.8 40.1.857043.3.579.2.462 Unknown [id number] 2.16.8 40.1.537509.3.579.2.462 Unknown [id number] 2.16.8 40.1.829892.3.579.2.462 Unknown [id number] 2.16.8 40.1.736949.3.579.2.462 Unknown [id number] 2.16.8 40.1.895579.3.579.2.462 Unknown [id number] 2.16.8 40.1.057013.3.579.2.462 Unknown [id number] 2.16.8 40.1.521686.3.579.2.462 Unknown [id number] 2.16.8 40.1.673621.3.579.2.462 Unknown [id number] 2.16.8 40.1.803575.3.579.2.462 Unknown [id number] 2.16.8 40.1.977718.3.579.2.462 Unknown [id number] 2.16.8 40.1.721278.3.579.2.462 Unknown [id number] 2.16.8 40.1.438419.3.579.2.462 Unknown [id number] 2.16.8 40.1.085251.3.579.2.462 Unknown [id number] 2.16.8 40.1.137012.3.579.2.462 Unknown [id number] 2.16.8 40.1.943545.3.579.2.462 Unknown [id number] 2.16.8 40.1.247495.3.579.2.462 Unknown [id number] 2.16.8 40.1.112550.3.579.2.462 Unknown [id number] 2.16.8 40.1.279539.3.579.2.462 Unknown [id number] 2.16.8 40.1.713121.3.579.2.462 Unknown [id number] 2.16.8 40.1.548454.3.579.2.462 Unknown [id number] 2.16.8 40.1.820551.3.579.2.462 Unknown [id number] 2.16.8 40.1.318811.3.579.2.462 Unknown [id number] 2.16.8 40.1.724024.3.579.2.462 Unknown [id number] 2.16.8 40.1.863653.3.579.2.462 Unknown [id number] 2.16.8 40.1.944669.3.579.2.462 Unknown [id number] 2.16.8 40.1.049884.3.579.2.462 Unknown [id number] 2.16.8 40.1.299847.3.579.2.462 Unknown [id number] 2.16.8 40.1.483748.3.579.2.462 Unknown [id number] 2.16.8 40.1.654254.3.579.2.462 Social History Date Type Detail Facility Start: 12-17-2016 End: 10-12-2023 Tobacco smoking status NHIS Former smoker [facility] Start: 12-17-2016 End: 10-09-2020 Cigarettes smoked current (pack per day) - Reported [facility] Work Phone: Start: 1945 [facility] Start: 12-17-2016 End: 10-09-2020 Tobacco use and exposure Never used [facility] Start: 12-17-2016 End: 01-10-2021 Alcohol intake Current non-drinker of alcohol (finding) [facility] Start: 03-10-2016 Tobacco Comment quit 25+ yrs ago [facility] Exposure to SARS-CoV -2 (event) Not sure [facility] Start: 08-01-2021 End: 12-21-2022 Tobacco smoking status NHIS Unknown if ever smoked [facility] Start: 01-12-2020 None [facility] Start: 01-12-2020 Spouse/ Signif icant Other [facility] Start: 11-18-2020 Non-smoker [facility] Start: 1945 Sex Assigned At Male [facility] Start: 07-13-2024 End: 08-08-2024 Sex Male (finding) [facility] Medical Equipment Procedure Code Equipment Code Equipment Origin al Text Equipment Identifier Dates Stent 3.50 X 23 [facility] - [id number] FDA Start: 01-04-2015 ()[id number] FDA Start: 08-31-2022 ()[id number] FDA Start: 08-31-2022 Goals Date Patient Goal Desired Activity /State Functional Status Date Assessment Result Facility 09-21-2022 Functional status Chair [facility] Work Phone: 09-20-2022 Functional status Assistive Ning lauro Rolling Walker [facility] Work Phone: 09-01-2022 Functional status Activity Ability Indepe ndent [facility] Work Phone: 08-31-2022 Functional status Ambulates [facility] Work Phone: Mental Status Date Assessment Result Facility 09-21-2022 Cognitive function Voice/Name [facility] Work Phone: 09-01-2022 Cognitive function Appropriate;Cooperativ e [facility] Work Phone: 11-16-2021 Cognitive function Voice/Name [facility] Work Phone: 06-10-2021 Cognitive function Level Of Cons ciousness Awake;Alert;Appropriate [facility] Work Phone: Clinical Notes 06-25-2020 to 11-20-2024 Note Date & Type Note Facility 11-20-2024 Radiology Diagnostic study note [facility] 09-20-2024 Evaluation note Diagnosis Onset Date Resolution COPD (chronic obstructive pulmonary disease) chronic September 20, 2024 10:13am Diastolic heart failure chronic [facility] 2024 10:13am Obesity chronic September 20, 2024 10:13am Obstructive sleep apnea chronic [facility] 2024 10:13am Shortness of breath acute October 25, 2024 7:54am Bilateral lower extremity edema chronic October 25, 2024 7:54am Chest pain chronic October 25 7:54am 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, stage 3 chronic October 25, 2024 7:54am Coronary artery disease chronic J une 2024 7:54am Essential hypertension chronic Ju ne 2024 7:54am Hyperlipidemia chronic October 25, 2024 7:54am Obesity chronic October 25 7:54am Type 2 diabetes mellitus without complications chronic October 25, 2024 7:54am Asthma acute October 31, 2024 10:00am Central sleep apnea acute October 31, 2024 10:00am COPD (chronic obstructive pulmonary disease) chronic October 31, 2024 10:00am Diastolic heart failure chronic [facility] 2024 10:00am Obesity chronic October 31, 2024 10:00am Obstructive sleep apnea chronic [facility] 2024 10:00am [facility] Work Phone: 1(431) 781-129405-21-2025 Evaluation note* Diagnosis Onset Date Resolution Status Admit Date COPD (chronic obstructive pulmonary disease) chronic September 20 10:13am Diastolic heart failure chronic [facility] 2024 10:13am Obesity chronic September 20, 2024 10:13am Obstructive sleep apnea chronic [facility] 2024 10:13am Shortness of breath acute October 25, 2024 7:54am Bilateral lower extremity edema [facility] October 25, 2024 7:54am Chest pain chronic October 25 7:54am 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, stage 3 [facility] October 25, 2024 7:54am Coronary artery [...] October 31 10:00am Diastolic heart failure chronic 2024 10:00am Obesity chronic October 31, 2024 10:00am Obstructive sleep apnea chronic J 2024 10:00am Presence of stent in coronar y artery Aug, 2022 acute November 22, 2024 10:53am Shortness of breath acute November 22, 2024 10:53am Bilateral lower extremity edema [facility] November 22, 2024 10:53am Chest pain chronic November 22 10:53am 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, stage 3 [facility] November 22, 2024 10:53am Essential hypertension chronic Ju 2024 10:53am Hyperlipidemia chronic November 22, 2024 10:53am Obesity chronic November 22 10:53am Type 2 diabetes mellitus wit hout complications chronic November 22, 2024 10:53am [facility] Work Phone: 1(234) 950-581003-18-2025 Procedure [facility] Pulmonary Services/Neurology [address] [place] [address] MR#: [id number] Acct: [id number] Name: ERIBERTO RICO Rep #:[id number] 01 : 1945 78 From: Zen East DO Referring Dr: Marni Horn ENVIRONMENTAL CONSERVATION OFFICER ENVIRONMENTAL CONSERVATION OFFICER-C Status: REG CLI Location: PSN Date: Sex: M C PSN 6 Minute Walk Test 6 Minute Walk Test 6 Minute Walk Test: 6 Minute Walk Test PSN:6-Minute Walk Test Start: 07/18/24 06:38 Freq: Status: Active Protocol: RESP.6MINW Document 07/18/24 06:00 [facility] (Rec: 07/18/24 06:47 [facility] [id number]) 6 Minute Walk Test Date Performed 07/18/24 Time Performed 06:00 Height 5 ft 9 in Weight: 230 lb Weight in Pounds 230.[address]: Marni Horn ENVIRONMENTAL CONSERVATION OFFICER Assistive device Cane used: Pre-test Oxygen Delivery Room Air Method Pulse Ox (%) 97 Pulse Rate (60-100 69 beats/min) Dyspnea [place] Scale ( 3 0-10) Exertion Segundo Scale [...] WAS DONE ON ROOM AIR. PT TOOK 1BRIEF REST BREAK EARLY INTO TESTING FOR DIZZINESS [...] supplemental oxygen at this time. 07/18/24 1032 O> Date _ Zen East DO CC: ~ Date Dictated: 07/18/24 103 Date Transcribed: 07/18/241031 Comb Fixer: Dr. Zen East, DO Signed [facility]03-03-2025 Evaluation note* Diagnosis Onset Date Resolution Status Admit Date COPD (chronic obstructive pulmonary disease) chronic July 03 1:10pm Diastolic heart failure chronic arch 2024 1:10pm Obesity chronic July 03 1:10pm Obstructive sleep apnea chronic [facility] 2024 1:10pm COPD (chronic obstructive pulmonary disease) chronic September 20 10:13am Diastolic heart failure chronic M ay 2024 10:13am Obesity chronic September 20, 2024 10:13am Obstructive sleep apnea chronic ay 2024 10:13am [facility] Work Phone: 1(579) 225-133303-03-2025 Evaluation note* Diagnosis Onset Date Resolution Status [...] 25, 2024 7:54am Bilateral lower extremity edema [facility] October 25, 2024 7:54am 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, stage 3 [facility] October 25, 2024 7:54am Coronary artery disease chronic J une 2024 7:54am Essential hypertension chronic Ju ne 2024 7:54am Hyperlipidemia chronic October 25, 2024 7:54am Obesity chronic October 25 7:54am Type 2 diabetes mellitus wit hout complications chronic October 25, 2024 7:54am Chest pain inactive October 25 7:54am [facility] Work Phone: 1(185) 454-165003-03-2025 Evaluation note* Diagnosis Onset Date Resolution Status [...] 25, 2024 7:54am Bilateral lower extremity edema [facility] October 25, 2024 7:54am Chest pain chronic October 25 7:54am 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, stage 3 [facility] October 25, 2024 7:54am Coronary artery disease chronic J une 2024 7:54am Essential hypertension chronic Ju ne 2024 7:54am Hyperlipidemia chronic October 25, 2024 7:54am Obesity chronic October 25 7:54am Type 2 diabetes mellitus wit hout complications chronic October 25, 2024 7:54am [facility] Work Phone: 1(527) 883-610803-03-2025 Evaluation note* Diagnosis Onset Date Resolution Status [...] 25, 2024 7:54am Bilateral lower extremity edema [facility] October 25, 2024 7:54am Chest pain chronic October 25 7:54am 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, stage 3 [facility] October 25, 2024 7:54am Coronary artery [...] 31, 2024 10:00am Obstructive sleep apnea chronic [facility] 2024 10:00am [facility] Work Phone: 1([phone]) 132-358003-03-2025 Evaluation note* Diagnosis Onset Date Resolution Status Admit Date COPD (chronic obstructive pulmonary disease) chronic July 03 1:10pm Diastolic heart failure chronic [facility] 2024 1:10pm Obesity chronic July 03 1:10pm Obstructive sleep apnea chronic [facility] 2024 1:10pm COPD (chronic obstructive pulmonary disease) chronic September 20 10:13am Diastolic heart failure chronic [facility] 2024 10:13am Obesity chronic September 20, 2024 10:13am Obstructive sleep apnea chronic [facility] 2024 10:13am Shortness of breath acute October 25, 2024 7:54am Bilateral lower extremity edema [facility] October 25, 2024 7:54am Chest pain chronic October 25 7:54am 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, stage 3 [facility] October 25, 2024 7:54am Coronary artery [...] 2024 10:00am [facility] Work Phone: 1([phone]) 291-739612-16-2024 Evaluation note* Diagnosis Onset Date Resolution Status Admit Date DEAN (dyspnea on exertion) acute April 17, 2024 3:51pm Bilateral lower extremity edema [facility] April 17, 2024 3:51pm 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, stage 3 [facility] April 17, 2024 3:51pm Coronary artery disease chronic D ecember 2023 3:51pm Essential hypertension chronic De cem2023 3:51pm Hyperlipidemia chronic April 022023 3:51pm Obesity chronic April 17, 2024 3:51pm Type 2 diabetes mellitus without complications chronic April 022023 3:51pm COPD (chronic obstructive pulmonary disease) chronic July 03 1:10pm Diastolic heart failure chronic M arch 2024 1:10pm Obesity chronic July 03 1:10pm Obstructive sleep apnea chronic [facility] 2024 1:10pm [facility] Work Phone: 1(370) 631-645911-18-2024 Evaluation note* Diagnosis Onset Date Resolution Status Admit Date Bilateral lower extremity edema [facility] March 20, 2024 10:31am 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, stage 3 [facility] March 20, 2024 10:31am Coronary artery disease chronic N ovember 2023 10:31am Essential hypertension chronic No vember 2023 10:31am Hyperlipidemia chronic March 032023 10:31am Obesity chronic March 20, 2024 10:31am Type 2 diabetes mellitus without complications chronic March 032023 10:31am DEAN (dyspnea on exertion) acute April 17, 2024 3:51pm Bilateral lower extremity edema [facility] April 17, 2024 3:51pm 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, stage 3 [facility] April 17, 2024 3:51pm Coronary artery disease chronic D ecember 2023 3:51pm Essential hypertension chronic De cember 2023 3:51pm Hyperlipidemia chronic April 022023 3:51pm Obesity chronic April 17, 2024 3:51pm Type 2 diabetes mellitus without complications chronic April 022023 3:51pm COPD (chronic obstructive pulmonary disease) chronic July 03 1:10pm Diastolic heart failure chronic [facility] 2024 1:10pm Obesity chronic July 03 1:10pm Obstructive sleep apnea chronic [facility] 2024 1:10pm [facility] Work Phone: 1(486) 990-684805-02-[address] Hay [facility] September 01, 2022 9:55am Note Date/Time September 01, 2022 8:37am [facility] Medical Records Department [address] [place] [address] Instructions for Home/Discharge Instructions 09/01/22 0835 MR#: [id number] Acct: [id number] Name: ERIBERTO RICO Rep #:[id number] : [...] ~ Signed [facility] Work Phone: 1(428) 993-220208-26-2021 Miscellaneous Notes* Assessment & Plan Note - [...] with any necessary intervention. documented in this [id number] History of Present illness Narrative* Eladio Ingram [...] patient is not nervous/anxious. documented in this [id number] Miscellaneous Notes* Assessment & Plan Note - Fernanda Acuña CNP - 10/09/2020 11:44 AM EDT Associated Problem(s): Coronary artery disease involving [place] coronary artery of [place] heart without angina pectoris Multiple previous cardiac catheterizations with intervention. Most recent cardiac caths were performed in 2018, August 03 at [place], and August 18 at [facility] in [place]. 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 The notes from the cath at [facility] indicate that they were able to [...] intolerance, and chest pressure. documented in this [id number] History of Present illness Narrative* Fernanda Acuña CNP - 10/09/2020 11:19 AM EDT [facility] [address] [facility] [address] [facility] [id number] Assessment & Plan: Hypertension Blood pressure mildly [...] without CPAP use. Coronary artery disease involving [place] coronary artery of [place] heart without angina pectoris Multiple previous cardiac catheterizations with intervention. Most recent cardiac caths were performed in 2018, August 03 at [place], and August 18 at [facility] in [place]. 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 The notes from the cath at [facility] indicate that they were able to [...] re-establish care. He has been following at [facility] and [facility] for his cardiology care over the past 4 years. His interventionist retired at some point and his primary care physician wanted him evaluated. Eriberto has long-standing coronary artery disease and his history is primarily obtained through records from [facility]. Eriberto is uncertain of many of the dates related to multiple tests and interventions he has had in the past 3 years. Eriberto states that he has noticed an increase in exercise intolerance over the past 3-4 weeks. 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 at [employer] this weeks and became quite short of [...] Diagnosis Date Coronary artery disease Diabetes mellitus ([facility]) Diastolic CHF ([facility]) Hyperlipidemia Hypertension Lower leg edema Myocardial infarction ([facility]) 2009 Peripheral vascular disease (HCC) Sleep apnea Stroke ([facility]) Testicle swelling Past Surgical History: Procedure Laterality Date CARDIAC CATHETERIZATION N/A 01/04/2015 Left Heart Cath,Stent, EF 60%; Eladio Ingram MD; [facility] [place] [facility] CARDIAC CATHETERIZATION N/A 01/28/2015 Left Heart Cath, EF 60%; Eladio Ingram MD; [facility] [place] [facility] CARDIAC CATHETERIZATION N/A 06/18/2015 Left Heart Cath, Right Upper Extremity Angiogram, EF 60%; Eladio Ingram MD; [facility] [place] [facility] CARDIAC CATHETERIZATION N/A 03/17/2016 Procedure: Left and Right Heart Cath Poss Stent; Surgeon: Eladio Ingram MD; Location: [facility] [place] [facility]; Service: CARDIAC CATHETERIZATION 03/22/2014 EF 60% CARDIAC CATHETERIZATION 06/29/2013 EF 60% CARDIAC CATHETERIZATION 09/08/2012 EF 55% CARDIAC CATHETERIZATION 03/22/2014 EF 60% CARDIAC CATHETERIZATION Right 10/15/2016 Procedure: Left Heart Cath Possible PTCA/Stent; Surgeon: Merritt Arthur MD; Location: [facility] [place] [facility]; Service: CHOLECYSTECTOMY CORONARY ANGIOPLASTY [...] ectopy, no acute changes. 50 minutes spent [id number] with patient Follow Up Ordered: Return for [...] patient is not nervous/anxious. documented in this [id number] NotePatient Outreach (COVAMN) ERIBERTO RICO ([id number]) 1945 M Date Time Provider Department 06/25/20 ARIANNA TELLES During your visit today, we recorded the following information about you: Allergies As of Date: 06/25/2020 (No Known Allergies) Date Reviewed: 08/19/2018 Reviewed by: Alcira Newby) ALEX Mcgraw - Fully Assessed Order(s):SARS-COVID VACCINE 1ST DOSE APPT [[id number]] Order #: [id number] FUTURE Prescriptions as of 06/25/2020 Sig: CLOPIDOGREL [...] (HCC) [N17.9] 08/15/2018 Coronary artery disease involving [place] smith*08/15/2018 Stented coronary artery [Z95.5] 08/15/2018 Letter Text Encounter Status:Closed by LANDON PRODUSER on 06/28/20[facility] Evaluation note* Diagnosis Shortness of breath- [facility] Diagnosis DEAN (dyspnea on exertion)- Primary Other dyspnea and respiratory abnormality [facility] Diagnosis DEAN (dyspnea on exertion) Other dyspnea and respiratory abnormality Essential hypertension Unspecified essential hypertension Type 2 diabetes mellitus without complication, without long-term current use of insulin (HCC) MATTHEW (obstructive sleep apnea) Obstructive sleep apnea (adult) (pediatric) Coronary artery disease involving [place] coronary artery of [place] heart without angina pectoris [facility] Diagnosis Shortness of breath [facility] Diagnosis Essential hypertension- Primary Unspecified essential hypertension Atherosclerosis of [place] coronary artery with angina pectoris, unspecified whether [place] or transplanted heart (HCC) Mixed hyperlipidemia [facility]* Diagnosis Chest pain, unspecified type- Primary [facility] Diagnosis Coronary artery disease involving [place] coronary artery of [place] heart with angina pectoris (HCC)- Primary [facility]* Diagnosis Onset Date Resolution Status Dizziness acute Atherosclerotic heart diseas e [place] coronary artery w/angina pectoris chronic CHF (congestive heart failure) chronic Essential hypertension chron ic History of coronary artery stent placement August 13, 2017 chronic Hyperlipidemia [facility] Work Phone: evaluation note* Diagnosis Onset Date Resolution Status Dizziness acute Atherosclerotic heart diseas e [place] coronary artery w/angina pectoris chronic CHF (congestive heart failure) chronic Essential hypertension chron ic History of coronary artery stent placement August 13, 2017 chronic Hyperlipidemia chronic Dizziness acute DEAN (dyspnea on exertion) ac [place] Palpitations acute CAD (coronary artery disease) chronic CHF (congestive heart failure) chronic Essential hypertension chron ic Hyperlipidemia [facility] Work Phone: evaluation note* Diagnosis Onset Date Resolution Status Dizziness acute Atherosclerotic heart diseas e [place] coronary artery w/angina pectoris chronic CHF (congestive heart failure) chronic Essential hypertension chron ic History of coronary artery stent placement August 13, 2017 chronic Hyperlipidemia chronic Dizziness acute DEAN (dyspnea on exertion) ac [place] Palpitations acute CAD (coronary artery disease) chronic CHF (congestive heart failure) chronic Essential hypertension chron ic Hyperlipidemia chronic DEAN (dyspnea on exertion) ac [place] CAD (coronary artery disease) chronic CHF (congestive heart failure) chronic Essential hypertension chron ic Hyperlipidemia [facility] Work Phone: Evaluation note* Diagnosis Onset Date Resolution Status Dizziness acute DEAN (dyspnea on exertion) ac [place] Palpitations acute CAD (coronary artery disease) chronic CHF (congestive heart failure) chronic Essential hypertension chron ic Hyperlipidemia chronic DEAN (dyspnea on exertion) ac [place] CAD (coronary artery disease) chronic CHF (congestive heart failure) chronic Essential hypertension chron ic Hyperlipidemia [facility] Work Phone: Evaluation note* Diagnosis Onset Date Resolution Status Abnormal PFT acute 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.9) [facility] [place] Obstructive sleep apnea [facility] [place] COVID-19 acute DEAN (dyspnea on exertion) ac [place] Atherosclerotic heart diseas e [place] coronary artery w/angina pectoris chronic CHF (congestive heart failure) chronic Essential hypertension chron ic History of coronary artery stent placement August 13, 2017 chronic Hyperlipidemia chronic Abnormal PFT acute COVID-19 acute 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.9) [facility] [employer] [place] Obstructive sleep apnea [facility] [employer] [place] [facility] Work Phone: Evaluation note* Diagnosis Onset Date Resolution Status COVID-19 acute DEAN (dyspnea on exertion) [place] Atherosclerotic heart diseas e [place] coronary artery w/angina pectoris chronic CHF (congestive heart failure) chronic Essential hypertension chron ic History of coronary artery stent placement August 13, 2017 chronic Hyperlipidemia chronic Abnormal PFT acute COVID-19 acute 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.9) [facility] [employer] [place] Obstructive sleep apnea [facility] [employer] [place] [facility] Work Phone: Evaluation note* Diagnosis Onset Date Resolution Status Angina pectoris chronic 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 chron ic Coronary artery disease perin[facility] [employer] [place] Diabetes mellitus chronic Dyslipidemia chronic Essential hypertension chron ic Obesity [facility] Work Phone: Evaluation note* Diagnosis Onset Date Resolution Status Angina pectoris chronic 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 chron ic Coronary artery disease perin[facility] [employer] [place] Diabetes mellitus chronic Dyslipidemia chronic Essential hypertension chron ic Obesity chronic Left-sided weakness acute Chest pain resolved Fatigue acute Syncope acute Coronary artery disease perin[facility] [employer] [place] Dyslipidemia chronic Essential hypertension chron ic [facility] Work Phone: Evaluation note* Diagnosis Onset Date Resolution Status Left-sided weakness acute Chest pain resolved Fatigue acute Syncope acute Coronary artery disease perinatal [employer] [place] Dyslipidemia chronic Essential hypertension chron ic Angina pectoris chronic Bilateral lower extremity edema chronic 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, stage 3 chronic Coronary artery disease perinatal [employer] [place] Essential hypertension chron ic Hyperlipidemia chronic Type 2 diabetes mellitus without complications chronic [facility] Work Phone: Evaluation noteNo assessment information available [facility] Work Phone: Progress note Author Dr. Hay [facility] September 01, 2022 9:53am Note Date/Time September 01, 2022 9:51am [facility] Medical Records Department [address] [place] [address] Progress Note 09/01/22 0950 MR#: [id number] Acct: [id number] Name: ERIBERTO RICO Rep #:[id number] : 1945 77 From: Jose Hay MD PCP: Dr. Marycarmen Rodriguez, DO Status:ADM EDMUND Location: [place] [address] Progress Note Reports complete resolution of angina. [...] ~ Signed [facility] Work Phone: Reason for referral (narrative)No reason for referral [facility]: Assessments Diagnosis MATTHEW (obstructive sleep apnea ) - Primary Obstructive sleep apnea (adult) (pediatric) Coronary artery disease invo [place]ving [place] coronary artery of [place] heart without angina pectoris Summary Purpose Family [...] FoundDocuments on File Type Date Recorded Patient Podopediatrician Expl anation Advance Directives and Living Will [...] Documents on File Type Date Recorded Patient Podopediatrician Expl anation Advance Directives and Livin g Will 10/04/2020 12:00 AM Documents on File Type Date Recorded Patient Podopediatrician Expl anation Advance Directives and Living Will [...] Documents on File Type Date Recorded Patient Podopediatrician Expl anation Advance Directives and Livin g Will 10/15/2020 12:46 PM Documents on File Type Date Recorded Patient Podopediatrician Expl anation Advance Directives and Livin g Will 10/15/2020 12:46 PM Documents on File Type Date Recorded Patient Podopediatrician Expl anation Advance Directives and Livin g [...] Will Yes June 10 4:44pm Power of Mail Handler Equipment Operator Yes June 10, 2021 4:44pm Advance Directive Response Recorded Date/ Time Name of Medical Power of Mail Handler Equipment Operator Jennie- November 16, 2021 1:06pm Advance Directives No August 13, 018 7:02am Living Will Yes November 16, 2021 1:06pm Power of Mail Handler Equipment Operator Yes November 16 1:06pm Advance Directive Response Recorded Date/ Time Advance Directives No August 13 018 6:02am Living Will Yes November 16, 2021 12:06pm Power of Mail Handler Equipment Operator Yes November 16 12:06pm Advance Directive Response Recorded Date/ Time Advance Directives No August 13 018 7:02am Living Will Yes November 16, 2021 1:06pm Power of Mail Handler Equipment Operator Yes November 16 1:06pm Advance Directive Response Recorded Date/ Time Advance Directives on File Yes August 312022 7:47am Name of Medical Power of Mail Handler Equipment Operator Mike Rico- son August 31, 2022 7:47am Advance Directives Yes August 31, 2022 7:47am Living Will Yes August 31, 2022 7: 47am Power of Mail Handler Equipment Operator Yes August 31, 2022 7:47am Advance Directive Response Recorded Date/ Time Advance Directives on File Yes August 312022 7:47am Name of Medical Power of Mail Handler Equipment Operator Mike Bustos son August 31, 2022 7:47am Advance Directives Yes August 31, 2022 7:47am Living Will No September 18, 2022 1 2:11am Power of Mail Handler Equipment Operator No September 18, 2022 12:11am Advance Directive Response Recorded Date/ Time Advance Directives on File Yes August 312022 7:47am Name of Medical Power of Mail Handler Equipment Operator Mike Rico- son August 31, 2022 7:47am Advance Directives on File No Augus 2022 7:51am Name of Medical Power of Mail Handler Equipment Operator MIKE RICO December 21, 2022 7:51am Advance Directives Yes December 21, 2022 7:51am Living Will Yes December 21 7:51am Power of Mail Handler Equipment Operator Yes December 21 023 7:51am Advance Directive Response Recorded Date/ Time Advance Directives on File No Augus t 2022 7:51am Name of Medical Power of Mail Handler Equipment Operator MIKE RICO December 21, 2022 7:51am Advance Directives Yes December 21, 2022 7:51am Living Will Yes December 21 7:51am Power of Mail Handler Equipment Operator Yes December 21 023 7:51am Advance Directive Response Recorded Date/ Time Advance Directives Yes December 21, 2022 6:51am Living Will Yes December 21 6:51am Power of Mail Handler Equipment Operator Yes December 21 023 6:51am Advance Directive Response Recorded Date/ Time Living Will No October 12, 2023 6:54pm Power of Mail Handler Equipment Operator No October 11 6:54pm Advance Directives Yes December 21, 2022 7:51am Advance Directive Response Recorded Date/ Time Advance Directives Yes December 21, 2022 7:51am Reason for Referral Status Reason Specialty Diagnoses / Procedures Referred By Contact Referred To Contact New Request Cardiology Diagnoses Shortness of breath Procedures Echocardiogram complete Eladio Ingram MD [address] [facility] [address] [place] [address] Status Reason Specialty Diagnoses / Procedures Referred By Contact Referred To Contact Closed Cardiology Diagnoses DEAN (dyspnea on exertion) Procedures ECG 12 lead Fernanda Acuña, SALES RECEPTIONIST [address] [place] [address] Specialty Diagnoses / Procedures Referred By Contac t Referred To Contact Radiology Diagnoses Coronary artery disease involving [place] coronary artery of [place] heart with angina pectoris (HCC) Procedures CT Angiogram Aorta Chest Abdomen Pelvis Eladio Ingram MD [address] [facility] [address] [place] [address] Referral ID Status Reason Start Date Expiration Date V isits Requested Visits Authorized [id number] New Request 01/10/2021 01/10/2022 1 1 Chief Complaint and Reason for Visit Chief Complaint R. LOWER LID LESION RLQ ABD PAIN bleeding from ear, chest pain OVERDUE FOR OV CHEST PAIN CHEST PAIN Reason for Visit Dizziness Atherosclerotic heart disease [place] coronary artery w/angina pectoris CHF (congestive heart failure) Essential hypertension History of coronary artery stent placement Hyperlipidemia Chief Complaint bleeding from ear, c hest pain OVERDUE FOR OV CHEST PAIN CHEST PAIN 6-8 WK F/U DYSPNEA Reason for Visit Dizziness Atherosclerotic heart disease [place] coronary artery w/angina pectoris CHF (congestive heart failure) Essential hypertension History of coronary artery stent placement Hyperlipidemia Dizziness DEAN (dyspnea on exertion) Palpitations CAD (coronary artery disease) CHF (congestive heart failure) Essential hypertension Hyperlipidemia Chief Complaint OVERDUE FOR OV CHEST PAIN CHEST PAIN 6-8 WK F/U DYSPNEA Reason for Visit Dizziness Atherosclerotic heart disease [place] coronary artery w/angina pectoris CHF (congestive heart failure) Essential hypertension History of coronary artery stent placement Hyperlipidemia Dizziness DEAN (dyspnea on exertion) Palpitations CAD (coronary artery disease) CHF (congestive heart failure) Essential hypertension Hyperlipidemia Chief Complaint OVERDUE FOR OV CHEST PAIN CHEST PAIN 6-8 WK F/U DYSPNEA CHEST PAIN 2 M FU E ORDERS Reason for Visit Dizziness Atherosclerotic heart disease [place] coronary artery w/angina pectoris CHF (congestive heart [...] DEAN (dyspnea on exertion) Atherosclerotic heart disease [place] coronary artery w/angina pectoris CHF (congestive heart failure) Essential hypertension History of coronary artery stent placement Hyperlipidemia Abnormal PFT COVID-19 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.9) Obstructive sleep apnea Chief Complaint SORE THROAT, COUGH, FEVER, BODY ACHE 5 MO F/U 3 M FU DYSPNEA/SOB Reason for Visit COVID-19 DEAN (dyspnea on exertion) Atherosclerotic heart disease [place] coronary artery w/angina pectoris CHF (congestive heart [...] CP CVA, CP CVA, CP request by ENVIRONMENTAL CONSERVATION OFFICER at [place] for angina L.L. E-ORDER SYNCOPE Reason for Visit Angina pectoris 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 Coronary artery disease Diabetes mellitus Dyslipidemia Essential hypertension Obesity Left-sided weakness Chest pain Fatigue Syncope Coronary artery disease Dyslipidemia Essential hypertension Chief Complaint CAD Amb Documentation EKG Coronary artery disease Amb Documentation CVA, CP CVA, CP CP ADMIT CVA, CP CVA, CP CVA, CP CVA, CP request by ENVIRONMENTAL CONSERVATION OFFICER at [place] for angina L.L. E-ORDER SYNCOPE 2 M [...] CP CVA, CP CVA, CP request by ENVIRONMENTAL CONSERVATION OFFICER at [place] for angina L.L. E-ORDER SYNCOPE 2 M [...] 3:51pm COPD (chronic obstructive pulmonary dise ase) March 3rd, 2025 1:10pm Diastolic heart failure July 03, 2024 [...] sleep apnea October 31, 2024 1 0:00am Chief Complaint Admit Date MATTHEW August 03, 2024 11:4 2am 3 M FU September 20, 2024 10:13 am INT LAB ORDERS September 20, 2024 11:56 am TRIAL FFM September 22, 2024 11:00 am MATTHEW October 18, 2024 1:18 pm Shortness of breath October 25, 2024 7:54 am MATTHEW October 26, 2024 11:0 0am 4wfu October 31, 2024 10:00 am SOB November 10, 2024 6:52 am Shortness of breath November 10, 2024 9:20 am ASV titraiton for failure of BiPAP thera py November 10, 2024 7:54pm Shortness of breath November 13, 2024 3:37 pm Reason for Visit Admit Date COPD (chronic obstructive pulmonary dise ase) September [...] sleep apnea October 31, 2024 1 0:00am Chief Complaint Admit Date MATTHEW August 03, 2024 11:4 2am 3 M FU September 20, 2024 10:13 am INT LAB ORDERS September 20, 2024 11:56 am TRIAL FFM September 22, 2024 11:00 am MATTHEW October 18, 2024 1:18 pm Shortness of breath October 25, 2024 7:54 am MATTHEW October 26, 2024 11:0 0am 4wfu October 31, 2024 10:00 am SOB November 10, 2024 6:52 am Shortness of breath November 10, 2024 9:20 am ASV tit[place] for failure of BiPAP thera py November 10, 2024 7:54pm Shortness of breath November 13, 2024 3:37 pm XRAY LEFT SHOULDER November 20, 2024 11:3 8am 3-4 WK FU November 22, 2024 10:5 3am Reason for Visit Admit Date COPD (chronic obstructive pulmonary dise ase) September [...] sleep apnea October 31, 2024 1 0:00am Presence of stent in coronary artery Honorio y 2024 10:53am Shortness of breath November 22, 2024 10:5 3am Bilateral lower extremity edema October 10:53am Chest pain November 22, 2024 10:5 3am 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, stage 3 October 10:53am Essential hypertension November 22, 2024 1 0:53am Hyperlipidemia November 22, 2024 10:5 3am Obesity November 22, 2024 10:5 3am Type 2 diabetes mellitus without complic ations November 22, 2024 10:53am Additional Source Comments (unrecognized sect ion and content) No Status Records FoundNo Status Records FoundNo Status Records FoundNo Status Records FoundNo Status Records FoundNo Status Records FoundNo Status Records Found INFORMATION SOURCE (unrecogn ized section and content) DATE CREATED AUTHOR 09/24/2018 [facility] DATE CREATED AUTHOR AUTHOR'S ORGANIZ ATION 12/20/2020 [facility] DATE CREATED AUTHOR AUTHOR'S ORGANIZ ATION 01/11/2021 [facility] DATE CREATED AUTHOR AUTHOR'S ORGANIZ ATION 02/28/2021 [facility] DATE CREATED AUTHOR AUTHOR'S ORGANIZ ATION 04/20/2021 [facility] DATE CREATED AUTHOR AUTHOR'S ORGANIZ ATION 06/22/2021 [facility] DATE CREATED AUTHOR AUTHOR'S ORGANIZ ATION 11/25/2024 [facility] Reason for Visit (unrecogniz ed section and content) Reason Comments Chest Pain SOB Status Reason Specialty Diagnoses / Procedures Referred By Contact Referred To Contact Closed Cardiology Diagnoses DEAN (dyspnea on exertion) Procedures ECG 12 lead Fernanda Acuña, SALES RECEPTIONIST [address] [place] [address] Status Reason Specialty Diagnoses / Procedures Referre d By Contact Referred To Contact Closed Cardiology Diagnoses Shortness of breath Procedures Echocardiogram complete w contrast Echocardiogram complete Eladio Ingram MD [address] [place] [address] Reason Comments Initial Visit (Intake) Specialty Diagnoses / Procedures Referred By Contpenny t Referred To Contact Cardiology Diagnoses Atherosclerosis of [place] coronary artery with angina pectoris, unspecified whether [place] or transplanted heart (HCC) Marycarmen Rodriguez DO [address] [place] [id number] Referral ID Status Reason Start Date Expiration Date V isits Requested Visits Authorized [id number] Closed Specialty Services Required/Krupa ent's Best Interest 10/04/2020 10/04/2021 1 1 Care Teams (unrecognized sec tion and content) [place] Relationship Specialty Start Date End Date Marycarmen Rodriguez [facility] [place], [place] [address] PCP - General Family Medicine 12/17/16 [place] Relationship Specialty Start Date End Date Marycarmen Rodriguez DO [facility] [place] [address] PCP - General Family Medicine 12/17/16 [place] Relationship Specialty Start Date End Date Marycarmen Rodriguez DO [facility] [place], [place] [address] PCP - General Family Medicine 12/17/16 [place] Relationship Specialty Start Date End Date Marycarmen Rodriguez DO [facility] [place] [address] PCP - General Family Medicine 12/17/16 Team Status: Active Member Role Status Dates Dr. Marycarmen Rodriguez DO Family Provider Active Marycarmen Rodriguez Primary Care Provider Active Team Status: Inactive Member Role Status Dates Dr. Marycarmen Rodriguez DO Primary Care Provider, Referdevyn g Provider Active Luz Elena Mckeon ENVIRONMENTAL CONSERVATION OFFICER, ENVIRONMENTAL CONSERVATION OFFICER-C Attending Provider Active Team Status: Inactive Member Role Status Dates Dr. Marycarmen Rodriguez DO Primary Care Provider Active Dr. Merritt Persaud MD Attending Provider, Referring Pr lynne Active Team Status: Inactive Member Role Status [...] Primary Care Provider Active Luz Elena Mckeon ENVIRONMENTAL CONSERVATION OFFICER, ENVIRONMENTAL CONSERVATION OFFICER-C Attending Provider Active Team Status: Inactive Member Role Status Dates Dr. Marycarmen Rodriguez DO Primary Care Provider Active Luz Elena Mckeon ENVIRONMENTAL CONSERVATION OFFICER, ENVIRONMENTAL CONSERVATION OFFICER-C Attending Provider, Referring P rovider Active Team Status: Inactive Member Role Status [...] DO Primary Care Provider Active Dr. Pardeep Rafael , DO Emergency Provider Active Dr. Alka Leo [...] Primary Care Provider Active Luz Elena Mckeon ENVIRONMENTAL CONSERVATION OFFICER, ENVIRONMENTAL CONSERVATION OFFICER-C Attending Provider, Referring P rovider Active Team Status: Inactive Member Role Status [...] Primary Care Provider Active Luz Elena Mckeon ENVIRONMENTAL CONSERVATION OFFICER, ENVIRONMENTAL CONSERVATION OFFICER-C Attending Provider Active Team Status: Inactive Member [...] 2024 End: April 17, 2024 Gustabo Pérez ENVIRONMENTAL CONSERVATION OFFICER, ENVIRONMENTAL CONSERVATION OFFICER-C Attending Provider Active S tart: April 17, 2024 End: April 17, 2024 Team Status: Inactive Member Role Status Dates Dr. Marycarmen Rodriguez DO Primary Care Provider Active Start: April 17, 2024 End: April 17, 2024 Gustabo Pérez ENVIRONMENTAL CONSERVATION OFFICER, ENVIRONMENTAL CONSERVATION OFFICER-C Attending Provider Active S tart: April 17, 2024 End: April 17, 2024 Gustabo Pérez ENVIRONMENTAL CONSERVATION OFFICER, ENVIRONMENTAL CONSERVATION OFFICER-C Referring Provider Active S tart: April 17, [...] 2024 End: July 03, 2024 Marni Horn ENVIRONMENTAL CONSERVATION OFFICER, ENVIRONMENTAL CONSERVATION OFFICER-C Attending Provider Active Start: July 03, 2024 End: July 03, 2024 Team Status: Active Member Role Status Dates Dr. Marycarmen Rodriguez DO Primary Care Provider Active Start: July 07, 2024 Marni Horn ENVIRONMENTAL CONSERVATION OFFICER, ENVIRONMENTAL CONSERVATION OFFICER-C Attending Provider Active Start: July 07, 2024 Marni Horn ENVIRONMENTAL CONSERVATION OFFICER, ENVIRONMENTAL CONSERVATION OFFICER-C Referring Provider Active Start: July 07, 2024 Team Status: Inactive Member Role Status Dates Dr. Marycarmen Rodriguez DO Primary Care Provider Active Start: July 07, 2024 End: July 07, 2024 Marni Horn ENVIRONMENTAL CONSERVATION OFFICER, ENVIRONMENTAL CONSERVATION OFFICER-C Attending Provider Active Start: July 07, 2024 End: July 07, 2024 Marni Horn ENVIRONMENTAL CONSERVATION OFFICER, ENVIRONMENTAL CONSERVATION OFFICER-C Referring Provider Active Start: July 07, 2024 End: July 07, 2024 Team Status: Active Member Role Status Dates Dr. Marycarmen Rodriguez DO Primary Care Provider Active Start: July 17, 2024 Marni Horn ENVIRONMENTAL CONSERVATION OFFICER, ENVIRONMENTAL CONSERVATION OFFICER-C Attending Provider Active Start: July 17, 2024 Marni Horn ENVIRONMENTAL CONSERVATION OFFICER, ENVIRONMENTAL CONSERVATION OFFICER-C Referring Provider Active Start: July 17, 2024 Team Status: Active Member Role Status Dates Dr. Marycarmen Rodriguez DO Primary Care Provider Active Start: July 18, 2024 Marni Horn ENVIRONMENTAL CONSERVATION OFFICER, ENVIRONMENTAL CONSERVATION OFFICER-C Attending Provider Active Start: July 18, 2024 Marni Horn ENVIRONMENTAL CONSERVATION OFFICER, ENVIRONMENTAL CONSERVATION OFFICER-C Referring Provider Active Start: July 18, 2024 Team Status: Active Member Role Status Dates Dr. Marycarmen Rodriguez DO Primary Care Provider Active Start: July 18, 2024 Marni Horn ENVIRONMENTAL CONSERVATION OFFICER, ENVIRONMENTAL CONSERVATION OFFICER-C Referring Provider Active Start: July 18, 2024 Marni Horn ENVIRONMENTAL CONSERVATION OFFICER, ENVIRONMENTAL CONSERVATION OFFICER-C Other Provider Active Start: July 18, 2024 Dr. eZn East DO Attending Provider Active S tart: July 18, 2024 Team Status: Inactive Member Role Status Dates Dr. Marycarmen Rodriguez DO Primary Care Provider Active Start: July 17, 2024 End: July 17, 2024 Marni Horn ENVIRONMENTAL CONSERVATION OFFICER, ENVIRONMENTAL CONSERVATION OFFICER-C Attending Provider Active Start: July 17, 2024 End: July 17, 2024 Marni Horn ENVIRONMENTAL CONSERVATION OFFICER, ENVIRONMENTAL CONSERVATION OFFICER-C Referring Provider Active Start: July 17, 2024 End: July 17, 2024 Team Status: Inactive Member Role Status Dates Dr. Marycarmen Rodriguez DO Primary Care Provider Active Start: July 18, 2024 End: July 18, 2024 Marni Horn ENVIRONMENTAL CONSERVATION OFFICER, ENVIRONMENTAL CONSERVATION OFFICER-C Attending Provider Active Start: July 18, 2024 End: July 18, 2024 Marni Horn ENVIRONMENTAL CONSERVATION OFFICER, ENVIRONMENTAL CONSERVATION OFFICER-C Referring Provider Active Start: July 18, 2024 End: July 18, 2024 Team Status: Inactive Member Role Status Dates Dr. Marycarmen Rodriguez DO Primary Care Provider Active Start: August 03, 2024 End: August 03, 2024 Marni Horn ENVIRONMENTAL CONSERVATION OFFICER, ENVIRONMENTAL CONSERVATION OFFICER-C Attending Provider Active Start: August 03, 2024 End: August 03, 2024 Marni Horn ENVIRONMENTAL CONSERVATION OFFICER, ENVIRONMENTAL CONSERVATION OFFICER-C Referring Provider Active Start: August 03, 2024 End: August 03, 2024 Team Status: Inactive Member Role Status Dates Dr. Marycarmen Rodriguez DO Primary Care Provider Active Start: September 20, 2024 End: September 20, 2024 Dr. Marycarmen Rodriguez DO Referring Provider Active Start: September 20, 2024 End: September 20, 2024 Maren Olivas ENVIRONMENTAL CONSERVATION OFFICER-C Attending Provider Active Start: September 20, 2024 End: September 20, 2024 Team Status: Inactive Member Role Status Dates Dr. Marycarmen Rodriguez DO Primary Care Provider Active Start: September 20, 2024 End: September 20, 2024 Maren Olivas ENVIRONMENTAL CONSERVATION OFFICER-C Attending Provider Active Start: September 20, 2024 End: September 20, 2024 Maren Olivas ENVIRONMENTAL CONSERVATION OFFICER-C Referring Provider Active Start: September 20, 2024 End: September 20, 2024 Team Status: Active Member Role Status Dates Dr. Marycarmen Rodriguez DO Primary Care Provider Active Start: September 22, 2024 Marni Horn ENVIRONMENTAL CONSERVATION OFFICER, ENVIRONMENTAL CONSERVATION OFFICER-C Attending Provider Active Start: September 22, 2024 Team Status: Inactive Member Role Status Dates Dr. Marycarmen Rodriguez DO Primary Care Provider Active Start: September 22, 2024 End: September 22, 2024 Marni Horn ENVIRONMENTAL CONSERVATION OFFICER, ENVIRONMENTAL CONSERVATION OFFICER-C Attending Provider Active Start: September 22, 2024 [...] S tart: July 17, 2024 Marni Horn ENVIRONMENTAL CONSERVATION OFFICER, ENVIRONMENTAL CONSERVATION OFFICER-C Referring Provider Active Start: July 17, 2024 Team Status: Inactive Member Role Status Dates Dr. Marycarmen Rodriguez DO Primary Care Provider Active Start: October 18, 2024 End: October 18, 2024 Dr. Brooks Carpenter MD Attending Provider Active Start: October 18, 2024 End: October 18, 2024 Dr. Brooks Carpenter MD Referring Provider Active Start: October 18, 2024 End: October 18, 2024 Gustabo Pérez ENVIRONMENTAL CONSERVATION OFFICER, ENVIRONMENTAL CONSERVATION OFFICER-C Other Provider Active Start : October 18, 2024 End: October 18, 2024 Team Status: Active Member Role Status Dates Dr. Marycarmen Rodriguez DO Primary Care Provider Active Start: October 18, 2024 Marni Horn ENVIRONMENTAL CONSERVATION OFFICER, ENVIRONMENTAL CONSERVATION OFFICER-C Attending Provider Active Start: October 18, 2024 Team Status: Inactive Member Role Status Dates Dr. Marycarmen Rodriguez DO Primary Care Provider Active Start: October 25, 2024 End: October 25, 2024 Dr. Marycarmen Rodriguez DO Referring Provider Active Start: October 25, 2024 End: October 25, 2024 Gustabo Pérez ENVIRONMENTAL CONSERVATION OFFICER, ENVIRONMENTAL CONSERVATION OFFICER-C Attending Provider Active S tart: October 25, 2024 End: October 25, 2024 Team Status: Inactive Member Role Status Dates Dr. Marycarmen Rodriguez DO Primary Care Provider Active Start: October 18, 2024 End: October 18, 2024 Marni Horn ENVIRONMENTAL CONSERVATION OFFICER, ENVIRONMENTAL CONSERVATION OFFICER-C Attending Provider Active Start: October 18, 2024 [...] 2024 End: July 03, 2024 Marni Horn ENVIRONMENTAL CONSERVATION OFFICER, ENVIRONMENTAL CONSERVATION OFFICER-C Attending Provider Active Start: July 03, 2024 End: July 03, 2024 Team Status: Inactive Member Role/Relationship Status Dates Dr. Marycarmen Rodriguez DO Primary Care Provider Active Start: July 07, 2024 End: July 07, 2024 Marni Horn ENVIRONMENTAL CONSERVATION OFFICER, ENVIRONMENTAL CONSERVATION OFFICER-C Attending Provider Active Start: July 07, 2024 End: July 07, 2024 Marni Horn ENVIRONMENTAL CONSERVATION OFFICER, ENVIRONMENTAL CONSERVATION OFFICER-C Referring Provider Active Start: July 07, 2024 End: July 07, 2024 Team Status: Inactive Member Role/Relationship Status Dates Dr. Marycarmen Rodriguez DO Primary Care Provider Active Start: July 17, 2024 End: July 17, 2024 Marni Horn ENVIRONMENTAL CONSERVATION OFFICER, ENVIRONMENTAL CONSERVATION OFFICER-C Attending Provider Active Start: July 17, 2024 End: July 17, 2024 Marni Horn ENVIRONMENTAL CONSERVATION OFFICER, ENVIRONMENTAL CONSERVATION OFFICER-C Referring Provider Active Start: July 17, 2024 End: July 17, 2024 Team Status: Active Member Role/Relationship Status Dates Dr. Marycarmen Rodriguez DO Primary Care Provider Active Start: July 17, 2024 Dr. Zen East DO Attending Provider Active S tart: July 17, 2024 aMrni Horn ENVIRONMENTAL CONSERVATION OFFICER, ENVIRONMENTAL CONSERVATION OFFICER-C Referring Provider Active Start: July 17, 2024 Team Status: Inactive Member Role/Relationship Status Dates Dr. Marycarmen Rodriguez DO Primary Care Provider Active Start: July 18, 2024 End: July 18, 2024 Marni Horn ENVIRONMENTAL CONSERVATION OFFICER, ENVIRONMENTAL CONSERVATION OFFICER-C Attending Provider Active Start: July 18, 2024 End: July 18, 2024 Marni Horn ENVIRONMENTAL CONSERVATION OFFICER, ENVIRONMENTAL CONSERVATION OFFICER-C Referring Provider Active Start: July 18, 2024 End: July 18, 2024 Team Status: Active Member Role/Relationship Status Dates Dr. Marycarmen Rodriguez DO Primary Care Provider Active Start: July 18, 2024 Marni Horn ENVIRONMENTAL CONSERVATION OFFICER, ENVIRONMENTAL CONSERVATION OFFICER-C Referring Provider Active Start: July 18, 2024 Marni Horn ENVIRONMENTAL CONSERVATION OFFICER, ENVIRONMENTAL CONSERVATION OFFICER-C Other Provider Active Start: July 18, 2024 Dr. Zen East DO Attending Provider Active S tart: July 18, 2024 Team Status: Inactive Member Role/Relationship Status Dates Dr. Marycarmen Rodriguez DO Primary Care Provider Active Start: August 03, 2024 End: August 03, 2024 Marni Horn ENVIRONMENTAL CONSERVATION OFFICER, ENVIRONMENTAL CONSERVATION OFFICER-C Attending Provider Active Start: August 03, 2024 End: August 03, 2024 Marni Horn ENVIRONMENTAL CONSERVATION OFFICER, ENVIRONMENTAL CONSERVATION OFFICER-C Referring Provider Active Start: August 03, 2024 [...] End: September 22, 2024 Marni Horn NP, ENVIRONMENTAL CONSERVATION OFFICER-C Attending Provider Active Start: September 22, 2024 [...] End: October 18, 2024 Gustabo Pérez NP, ENVIRONMENTAL CONSERVATION OFFICER-C Other Provider Active Start : October 18, 2024 End: October 18, 2024 Team Status: Inactive Member Role/Relationship Status Dates Dr. Marycarmen Rodriguez DO Primary Care Provider Active Start: October 18, 2024 End: October 18, 2024 Marni Horn NP, ENVIRONMENTAL CONSERVATION OFFICER-C Attending Provider Active Start: October 18, 2024 End: October 18, 2024 Team Status: Inactive Member Role/Relationship Status Dates Dr. Marycarmen Rodriguez DO Primary Care Provider Active Start: October 25, 2024 End: October 25, 2024 Dr. Marycarmen Rodriguez DO Referring Provider Active Start: October 25, 2024 End: October 25, 2024 Gustabo Pérez ENVIRONMENTAL CONSERVATION OFFICER, ENVIRONMENTAL CONSERVATION OFFICER-C Attending Provider Active S tart: October 25, 2024 End: October 25, 2024 Team Status: Active Member Role/Relationship Status Dates Dr. Marycarmen Rodriguez DO Primary Care Provider Active Start: October 26, 2024 Marni Horn ENVIRONMENTAL CONSERVATION OFFICER, ENVIRONMENTAL CONSERVATION OFFICER-C Attending Provider Active Start: October 26, 2024 Marni Horn ENVIRONMENTAL CONSERVATION OFFICER, ENVIRONMENTAL CONSERVATION OFFICER-C Referring Provider Active Start: October 26, 2024 [...] 2024 End: October 26, 2024 Marni Horn ENVIRONMENTAL CONSERVATION OFFICER, ENVIRONMENTAL CONSERVATION OFFICER-C Attending Provider Active Start: October 26, 2024 End: October 26, 2024 Marni Horn ENVIRONMENTAL CONSERVATION OFFICER, ENVIRONMENTAL CONSERVATION OFFICER-C Referring Provider Active Start: October 26, 2024 End: October 26, 2024 Team Status: Inactive Member Role/Relationship Status Dates Dr. Marycarmen Rodriguez DO Primary Care Provider Active Start: August 03, 2024 End: August 03, 2024 Marni Horn ENVIRONMENTAL CONSERVATION OFFICER, ENVIRONMENTAL CONSERVATION OFFICER-C Attending Provider Active Start: August 03, 2024 End: August 03, 2024 Marni Horn ENVIRONMENTAL CONSERVATION OFFICER, ENVIRONMENTAL CONSERVATION OFFICER-C Referring Provider Active Start: August 03, 2024 End: August 03, 2024 Team Status: Inactive Member Role/Relationship Status Dates Dr. Marycarmne Rodriguez DO Primary Care Provider Active Start: [...] 2024 End: September 20, 2024 Maren Olivas ENVIRONMENTAL CONSERVATION OFFICER-C Referring Provider Active Start: September 20, 2024 End: September 20, 2024 Team Status: Inactive Member Role/Relationship Status Dates Dr. Marycarmen Rodriguez DO Primary Care Provider Active Start: September 22, 2024 End: September 22, 2024 Marni Horn NP, ENVIRONMENTAL CONSERVATION OFFICER-C Attending Provider Active Start: September 22, 2024 [...] End: October 18, 2024 Gustabo Pérez NP, ENVIRONMENTAL CONSERVATION OFFICER-C Other Provider Active Start : October 18, 2024 End: October 18, 2024 Team Status: Inactive Member Role/Relationship Status Dates Dr. Marycarmen Rodirguez DO Primary Care Provider Active Start: October 18, 2024 End: October 18, 2024 Marni Horn NP, ENVIRONMENTAL CONSERVATION OFFICER-C Attending Provider Active Start: October 18, 2024 End: October 18, 2024 Team Status: Inactive Member Role/Relationship Status Dates Dr. Marycarmen Rodriguez DO Primary Care Provider Active Start: October 25, 2024 End: October 25, 2024 Dr. Marycarmen Rodriguez DO Referring Provider Active Start: October 25, 2024 End: October 25, 2024 Gustabo Pérez ENVIRONMENTAL CONSERVATION OFFICER, ENVIRONMENTAL CONSERVATION OFFICER-C Attending Provider Active S tart: October 25, 2024 End: October 25, 2024 Team Status: Inactive Member Role/Relationship Status Dates Dr. Marycarmen Rodriguez DO Primary Care Provider Active Start: October 26, 2024 End: October 26, 2024 Marni Horn ENVIRONMENTAL CONSERVATION OFFICER, ENVIRONMENTAL CONSERVATION OFFICER-C Attending Provider Active Start: October 26, 2024 End: October 26, 2024 Marni Horn NP, ENVIRONMENTAL CONSERVATION OFFICER-C Referring Provider Active Start: October 26, 2024 End: October 26, 2024 Team Status: Inactive Member [...] Rodriguez DO Primary Care Provider Active Start: November 09, 2024 End: November 09, 2024 Dr. Marycarmen Rodriguez DO Attending Provider Active Start: November 09, 2024 End: November 09, 2024 Team Status: Active Member Role/Relationship Status Dates Dr. Marycarmen Rodriguez DO Primary Care Provider Active Start: November 10, 2024 Gustabo Pérez ENVIRONMENTAL CONSERVATION OFFICER, ENVIRONMENTAL CONSERVATION OFFICER-C Attending Provider Active S tart: November 10, 2024 Gustabo Pérez ENVIRONMENTAL CONSERVATION OFFICER, ENVIRONMENTAL CONSERVATION OFFICER-C Referring Provider Active S tart: November 10, 2024 Team Status: Active Member Role/Relationship Status Dates Dr. Marycarmen Rodriguez DO Primary Care Provider Active Start: November 10, 2024 Dr. Lance Rodriguez MD Attending Provider Active S tart: November 10, 2024 Gustabo Pérez ENVIRONMENTAL CONSERVATION OFFICER, ENVIRONMENTAL CONSERVATION OFFICER-C Referring Provider Active S tart: November 10, 2024 Team Status: Active Member Role/Relationship Status Dates Dr. Marycarmen Rodriguez DO Primary Care Provider Active Start: November 10, 2024 Maren Olivas NP-C Attending Provider Active Start: November 10, 2024 Maren Olivas NP-C Referring Provider Active Start: November 10, 2024 Team Status: Active Member Role/Relationship Status Dates Dr. Marycarmen Rodriguez DO Primary Care Provider Active Start: November 13, 2024 Gustabo Pérez ENVIRONMENTAL CONSERVATION OFFICER, ENVIRONMENTAL CONSERVATION OFFICER-C Referring Provider Active S tart: November 13, 2024 Gustabo Pérez ENVIRONMENTAL CONSERVATION OFFICER, ENVIRONMENTAL CONSERVATION OFFICER-C Other Provider Active Start : November 13, 2024 Dr. Jose Hay MD Attending Provider Active Start: November 13, 2024 Team Status: Inactive Member Role/Relationship Status Dates Dr. Marycarmen Rodriguez DO Primary Care Provider Active Start: November 10, 2024 End: November 10, 2024 Gustabo Pérez ENVIRONMENTAL CONSERVATION OFFICER, ENVIRONMENTAL CONSERVATION OFFICER-C Attending Provider Active S tart: November 10, 2024 End: November 10, 2024 Gustabo Pérez ENVIRONMENTAL CONSERVATION OFFICER, ENVIRONMENTAL CONSERVATION OFFICER-C Referring Provider Active S tart: November 10, 2024 End: November 10, 2024 Team Status: Inactive Member Role/Relationship Status Dates Dr. Marycarmen Rodriguez DO Primary Care Provider Active Start: November 10, 2024 End: November 10, 2024 Maren Olivas NP-C Attending Provider Active Start: November 10, 2024 End: November 10, 2024 Maren Olivas NP-C Referring Provider Active Start: November 10, 2024 End: November 10, 2024 Team Status: Active Member Role/Relationship Status Dates Dr. Marycarmen Rodriguez DO Primary Care Provider Active Start: November 20, 2024 Dr. Brooks Carpenter MD Attending Provider Active Start: November 20, 2024 Dr. Brooks Carpenter MD Referring Provider Active Start: November 20, 2024 Team Status: Inactive Member Role/Relationship Status Dates Dr. Marycarmen Rodriguez DO Primary Care Provider Active Start: November 22, 2024 End: November 22, 2024 Dr. Marycarmen Rodriguez DO Referring Provider Active Start: November 22, 2024 End: November 22, 2024 Gustabo Pérez ENVIRONMENTAL CONSERVATION OFFICER, ENVIRONMENTAL CONSERVATION OFFICER-C Attending Provider Active S tart: November 22, 2024 End: November 22, 2024 Team Status: Inactive Member Role/Relationship Status Dates Dr. Marycarmen Rodriguez DO Primary Care Provider Active Start: November 20, 2024 End: November 20, 2024 Dr. Brooks Carpenter MD Attending Provider Active Start: November 20, 2024 End: November 20, 2024 Dr. Brooks Carpenter MD Referring Provider Active Start: November 20, 2024 End: November 20, 2024 Team Status: Active Member Role/Relationship Status Dates Dr. Marycarmen Rodriguez DO Primary Care Provider Active Start: November 22, 2024 Gustabo Pérez ENVIRONMENTAL CONSERVATION OFFICER, ENVIRONMENTAL CONSERVATION OFFICER-C Attending Provider Active S tart: November 22, 2024 Gustabo Pérez ENVIRONMENTAL CONSERVATION OFFICER, ENVIRONMENTAL CONSERVATION OFFICER-C Referring Provider Active S tart: November 22, 2024 Goals (unrecognized section and content) Goals [...] BE BASED ON THE PRIMARY CLINICAL RECORDS. [facility] [employer] [facility]. provides no warranty or guarantee of the accuracy or completeness of information in this document.
[2024-11-26 18:13] LABS: Hematocrit 36.7 % (40-54); Hemoglobin 11.8 g/dL (13.0-16.5); Immature Granulocytes Count 0.040 X10^3/uL (0.0-0.0); Mean Corp Hgb Conc 32.2 g/dL (32-36); Mean Corpuscular Volume 90.8 fL (80-94); Mean Platelet Vol. 12.8 fl (6.2-12.0); NRBC Flagged by Analyzer 0 % (0-5); Platelet Count 132 K/mm3 (150-450); RBC Distribution Width CV 13.9 % (11.6-14.6); RBC Distribution Width SD 46.6 fl (35.1-43.9); Red Blood Count 4.04 M/mm3 (4.6-6.2); White Blood Count 9.2 K/mm3 (4.4-11.0)
[2024-11-26 18:58] LABS: Anion Gap 15 (5-15); BUN 43 mg/dL (4-19); BUN/Creat Ratio 18.2 RATIO (10-20); Calcium,Total 9.2 mg/dL (7.6-11.0); Carbon Dioxide 21.5 mmol/L (21.0-32.0); Chloride 100 mmol/L (98-108); Estimated Creatinine Clearance 31.97 ml/min (50-250); Glucose 275 mg/dL (70-99); Potassium 4.4 mmol/L (3.3-5.1); Pro- Brain NATRIURETIC PEPTIDE 162 pg/mL (<=1800); Troponin T High Sensitivity 18 ng/L (<=22)
[2024-11-26] MEDS: HYDROcodone Bitartrate/Apap 5/325 Tablet PO (19:54)
[2024-11-26 21:10] LABS: Troponin T High Sens 2 HR 20 ng/L (<=22)
== END 2024-11-26 21:55 | disposition home or self-care (01) ==
PROVIDERS: Emergency Provider Emergency Medicine; PCP Family Medicine; Visit Provider Emergency Medicine
DX: S80.01XA Contusion of right knee, initial encounter (principal); I13.0 Hypertensive heart and chronic kidney disease with heart failure and stage 1 through stage 4 chronic kidney disease, or unspecified chronic kidney disease; I50.9 Heart failure, unspecified; J44.9 Chronic obstructive pulmonary disease, unspecified; E11.65 Type 2 diabetes mellitus with hyperglycemia; E11.22 Type 2 diabetes mellitus with diabetic chronic kidney disease; N18.30 Chronic kidney disease, stage 3 unspecified; I25.10 Atherosclerotic heart disease of native coronary artery without angina pectoris; W10.9XXA Fall (on) (from) unspecified stairs and steps, initial encounter; Z86.16 Personal history of COVID-19; S80.02XA Contusion of left knee, initial encounter; E78.5 Hyperlipidemia, unspecified; S60.221A Contusion of right hand, initial encounter; S80.211A Abrasion, right knee, initial encounter; Z87.891 Personal history of nicotine dependence; Z95.5 Presence of coronary angioplasty implant and graft; Z86.73 Personal history of transient ischemic attack (TIA), and cerebral infarction without residual deficits; Z79.82 Long term (current) use of aspirin; Z90.49 Acquired absence of other specified parts of digestive tract; R07.89 Other chest pain
CPT/HCPCS: 70450; 71045; 72125; 73130; 73564; 80048; 83880; 84484; 85025; 90715; 93005; 99285; A4216

== ENCOUNTER 2024-11-27 11:24 | Observation (INO) | payer MEDICARE, OTHER, SELFPAY ==
[2018-08-03 13:04] VITALS: BMI 19.8
[2024-11-27] VITALS (11 sets, daily range): BP systolic 113–142; BP diastolic 64–92; PULSE 65–81; RESP 16–22; TEMP 35.6–36.8; O2SAT 91–97; BMI 35.4
--- NOTE | 2024-11-27 11:28 | DCINST_ITS ---
Discharge Instructions DC O2, CPAP, BIPAP needs Home O2 Discharge instructions: No Dressing / Incision Lifting Restrictions: No heavy lifting, bending, strous physical activity X 2 weeks Dressing / Incision Call your doctor if your incision/area has: Continuous Slow Oozing, Sudden Increased Bleeding, Increased Pain/ Swelling, Increased Redness, Foul Smelling Discharge and Swelling at the incision site Call your doctor if you observe: Fever of 101 or Higher, Coldness, Increased Pain and Numbness or Tingling Follow Up Care Please Follow Up With: Jose Suárez MD When: 2 weeks Test Results: Test results from this visit will be discussed in further detail at your follow- up appointment, if applicable. Discharge Plan Admission Attending Provider: Jose Suárez Primary Care Provider: Victor M Luke Instructions Print Language: Latvian Discharge Orders/Prescriptions Prescriptions: New furosemide 80 mg Tablet 80 mg PO DAILY Qty: 30 6RF Continued fluoxetine 40 mg capsule 80 mg PO DAILY 90 Days Qty: 180 magnesium oxide 400 mg (241.3 mg magnesium) tablet 800 mg PO DAILY cetirizine 10 mg tablet 10 mg PO DAILY PRN (Reason: Allergic Reaction) cholecalciferol (vitamin D3) 25 mcg (1,000 unit) tablet 25 mcg PO DAILY glimepiride 4 mg tablet 4 mg PO QDAY hydrocodone-acetaminophen 5-325 mg tablet 1 tab PO TID PRN (Reason: pain) albuterol sulfate 90 mcg/actuation HFA aerosol inhaler 2 inh inhalation Q4-6H PRN (Reason: shortness of breath or wheezing) Qty: 8.5 3RF amlodipine 5 mg tablet 5 mg PO QPM metolazone 2.5 mg tablet 2.5 mg PO QDAY isosorbide mononitrate 60 mg tablet extended release 24 hr 60 mg PO BID Qty: 90 3RF metoprolol succinate 25 mg tablet extended release 24 hr 25 mg PO DAILY Qty: 30 11RF aspirin 81 MG tablet 81 mg PO DAILY@0800 cyanocobalamin (vitamin B-12) 1,000 MCG capsule 1,000 mcg PO DAILY Qty: 0 acetaminophen 325 MG tablet 650 mg PO Q6H PRN (Reason: Pain 1-02/09) mirtazapine [Remeron] 15 mg tablet 15 mg PO QHS losartan 100 mg tablet 100 mg PO DAILY Qty: 90 3RF nitroglycerin 0.4 mg tablet, sublingual 0.4 mg SUBLINGUAL Q5-15M PRN (Reason: CHEST PAIN) Qty: 25 3RF atorvastatin 40 mg tablet 40 mg PO QHS Qty: 90 3RF clopidogrel 75 mg tablet 75 mg PO DAILY Qty: 90 3RF potassium chloride 20 mEq tablet,ER particles/crystals 60 meq PO BID Qty: 180 3RF spironolactone 50 mg tablet 50 mg PO DAILY Qty: 90 3RF pantoprazole 40 mg tablet,delayed release (DR/EC) 40 mg PO DAILY Qty: 90 3RF Held metformin 500 mg tablet 500 mg PO QDAY Hold Instructions: Resume on 11/30/24. Discontinued furosemide 40 mg tablet 40 mg PO BID Qty: 180 3RF Referrals / Follow Up: Victor M Luke DO [Primary Care Provider] - Disposition Disposition (needs filled in before D/C Order can be placed): Home, Self Care
--- NOTE | 2024-11-27 11:30 | EKG12_ITS ---
Test Reason : CP/FALL Blood Pressure : */* mmHG Vent. Rate : 84 BPM Atrial Rate : 84 BPM P-R Int : 178 ms QRS Dur : 92 ms QT Int : 392 ms P-R-T Axes : 68 63 61 degrees QTcB Int : 463 ms Normal sinus rhythm Normal ECG When compared with ECG of 22-Nov-2024 12:01, MANUAL COMPARISON REQUIRED DATA IS UNCONFIRMED Confirmed by NAOMIE PALOMO, PARVEZ ([id number]), development editor VERONICA SCOTT ([id number]) on 11/28/2024 1:05:17 PM Referred By: Jose Suárez Confirmed By: PARVEZ AKBAR MD
[2024-11-27] MEDS: 0.9% Saline Lock 10 ML Syringe IV (12:20)
[2024-11-27] MEDS: 0.9% Normal Saline (1000mL) 1,000 ML 100 ML IV (12:20)
[2024-11-27] MEDS: HYDROcodone Bitartrate/Apap 5/325 Tablet PO (13:27)
--- NOTE | 2024-11-27 13:59 | CRPHASE1 ---
Patient Communication Patient Information Former Patient:: Phase I PHII Cardiac Rehab Discussed with Patient:: Yes Guide to Cardiac Rehab Given to Patient:: Yes Cardiac Rehab Facility Choice List Given to Patient:: Yes Communication to Cardiac Rehab Chief Nuclear Medicine Technologist:: Jose Suárez Phase II Cardiac Rehab:: Yes Sessions:: 36 sessions - 3 days/wk, 12 weeks Cardiac Rehabilitation Info Program Information Cardiac Rehabilitation Program Information: Cardiac Rehab The cardiac rehab team at [facility] consists of highly skilled exercise physiologists, nurses, respiratory therapists and physicians working together with you. Our purpose is to help you have a full recovery and achieve the goals you set for yourself. Over the years many of our patients have returned to activities they assumed they would never do again! We can help restore your confidence and motivation to make lifestyle changes that can have a significant impact on your health and quality of life! We can help answer questions and concerns you may have about exercise, lifestyle, medications, diet, stress and anxiety which are common following a hospitalization. WE monitor ECG and vital signs during exercise and discuss your progress with you and report to your physician(s). Cardiac Rehab is proven to help reduce readmissions, improve functional capacity and lower recurrence of problems with your heart. Our Cardiac Rehab program is Certified by the [place] (AACVPR) and Accredited by the [employer] through our [facility]. You can contact us at . We invite you to call us with your questions or to get started in our program. If you have other questions or concerns be sure to ask your physician/provider during your follow-up visit. WE look forward to seeing you!
--- NOTE | 2024-11-27 14:00 | CRPH1.INSTRU ---
General Education Discussed with Patient CAD and cardiac anatomy and function:: Patient communicates acknowledgment Explanation of diagnoses and procedures:: Patient communicates acknowledgment Sign/Symptoms of IN:: Patient communicates acknowledgment Antiplatelet therapy: Patient communicates acknowledgment Proper use of NTG-SL: Patient communicates acknowledgment Emergency procedures and activation of EMS: Patient communicates acknowledgment Compliance of all prescribed medications: Patient communicates acknowledgment Smoking Risk Factors Patient Nicotine/Smoking Risk Factors Are:: Non-smoker Recommendations Recommendations Include:: Previous smoker; encourage continued cessation Response Code Nicotine/Smoking Response Code:: Patient communicates acknowledgment Dyslipidemia Recommendations Recommendations Include:: Lipid profile not available Response Code Dyslipidemia Response Code:: Patient communicates acknowledgment Overweight/Obesity Risk Factors Patient Overweight/Obesity Risk Factors Are:: Obesity - > or = 30 Recommendations Recommendations Include:: Weight loss of 5-10%, Reduced calorie diet and Exercise 5-7 times/week Response Code Overweight/Obesity:: Patient communicates acknowledgment Hypertension Recommendations Recommendations Include:: BP <130/80 if diabetic Response Code Hypertension:: Patient communicates acknowledgment Heart Disease Risk Factors Patient Heart Disease Risk Factors Are:: Previous cardiac event Recommendations Recommendations Include:: Educated family members of their risk Response Code Heart Disease Response Code:: Patient communicates acknowledgment Diabetes Recommendations Recommendations Include:: Maintain fasting blood sugars 70-110 md/dL, Maintain HgbA1c of 6% or less, Diabetic dietary guidelines and Decrease/maintain body weight Response Code Diabetes:: Patient communicates acknowledgment Metabolic Syndrome Recommendations Recommendations Include:: Does not meet criteria Response Code Metabolic Syndrome Response Code:: Patient communicates acknowledgment Sedentary Risk Factors Patient Sedentary Risk Factors Are:: Lack of regular exercise Recommendations Recommendations Include:: Benefits of regular exercise and Monitored Outpatient Cardiac Rehab Response Code Sedentary Response Code:: Patient communicates acknowledgment Stress Recommendations Recommendations Include:: Identification of stressors, and assessment of coping skills and Stress management techniques Response Code Stress Response Code:: Patient communicates acknowledgment
[2024-11-27] MEDS: Potassium Chloride Oral Tablet 20 MEQ 60 MEQ PO (17:07)
[2024-11-28 01:30] VITALS: PULSE 71; RESP 12; RESP 14
[2024-11-28 03:15] VITALS: BP 114/66; PULSE 69; RESP 18; TEMP 36.7; O2SAT 93
[2024-11-28 05:13] VITALS: BMI 35.2
[2024-11-28 06:05] LABS: Hematocrit 35.3 % (40-54); Hemoglobin 11.3 g/dL (13.0-16.5); Mean Corp Hgb Conc 32.0 g/dL (32-36); Mean Corpuscular Volume 91.7 fL (80-94); Mean Platelet Vol. 12.6 fl (6.2-12.0); Platelet Count 108 K/mm3 (150-450); RBC Distribution Width CV 13.6 % (11.6-14.6); RBC Distribution Width SD 46.1 fl (35.1-43.9); Red Blood Count 3.85 M/mm3 (4.6-6.2); White Blood Count 7.1 K/mm3 (4.4-11.0)
[2024-11-28 06:30] LABS: Scan Indicated on CBC? Y/N NO
[2024-11-28 06:33] LABS: AST(SGOT) 33 U/L (<=37); Alanine Aminotransfer ALT/SGPT 27 U/L (<=46); Albumin, Serum 3.8 g/dL (3.4-4.8); Alkaline Phosphatase 93 U/L (40-129); Anion Gap 13 (5-15); BUN 29 mg/dL (4-19); BUN/Creat Ratio 15.2 RATIO (10-20); Calcium,Total 9.2 mg/dL (7.6-11.0); Carbon Dioxide 23.7 mmol/L (21.0-32.0); Chloride 102 mmol/L (98-108); Estimated Creatinine Clearance 37.66 ml/min (50-250); Globulin 2.8 g/dL (2.2-4.2); Glucose 130 mg/dL (70-99); Potassium 4.4 mmol/L (3.3-5.1)
[2024-11-28 09:10] VITALS: BP 129/64; PULSE 86; RESP 18; TEMP 36.4; O2SAT 94
[2024-11-28 09:15] VITALS: O2SAT 94
[2024-11-28] MEDS: HYDROcodone Bitartrate/Apap 5/325 Tablet PO (09:15)
--- NOTE | 2024-11-28 09:20 | PHA.DC.MR.R ---
Pharmacy MA Med Reconciliation Pharmacy Service has performed discharge medication reconciliation for this patient. The patient's discharge medication list was reviewed for discrepancies and discrepancies were resolved. Medications at Discharge Home Medications aspirin 81 mg tablet,delayed release 81 mg PO DAILY@0800 health maintenance 01/21/17 mirtazapine 15 mg tablet (Remeron) 15 mg PO QHS sleep 09/21/18 cyanocobalamin (vitamin B-12) 1,000 mcg capsule 1,000 mcg PO DAILY vitamin ##0 06/01/19 magnesium oxide 400 mg (241.3 mg magnesium) tablet 800 mg PO DAILY SUPPLEMENT 08/01/21 cetirizine 10 mg tablet 10 mg PO DAILY PRN Allergic Reaction 09/16/21 cholecalciferol (vitamin D3) 25 mcg (1,000 unit) tablet [address] 09/16/21 fluoxetine 40 mg capsule 80 mg PO DAILY DEPRESSION 90 days #180 caps 09/16/21 acetaminophen 325 mg tablet 650 mg PO Q6H PRN Pain 1-02/0910/12/23 glimepiride 4 mg tablet 4 mg PO QDAY diabetes 03/20/24 atorvastatin 40 mg tablet 40 mg PO QHS CHOLESTEROL #90 tabs 06/14/24 clopidogrel 75 mg tablet [address] #90 tabs 06/14/24 losartan 100 mg tablet 100 mg PO DAILY blood pressure #90 tabs 06/14/24 nitroglycerin 0.4 mg sublingual tablet 0.4 mg sublingual Q5-15M PRN CHEST PAIN #25 tabs 06/14/24 pantoprazole 40 mg tablet,delayed release 40 mg PO DAILY GERD #90 tabs 06/14/24 potassium chloride 20 mEq tablet,extended release(part/cryst) 60 meq (3 x 20 mEq) PO BID supplement #180 tabs 06/14/24 spironolactone 50 mg tablet 50 mg PO DAILY diuretic #90 tabs 06/14/24 albuterol sulfate 90 mcg/actuation aerosol inhaler 2 inh inhalation Q4-6H PRN shortness of breath or wheezing #8.5 grams 09/20/24 amlodipine 5 mg tablet 5 mg PO QPM blood pressure 10/25/24 isosorbide mononitrate 60 mg tablet,extended release 24 hr 60 mg PO BID heart #90 TABLETS 10/25/24 metformin 500 mg tablet 500 mg PO QDAY diabetes 10/25/24 Held on 11/27/24. Instructions: Resume on 11/30/24. metolazone 2.5 mg tablet 2.5 mg PO QDAY diuretic 10/25/24 metoprolol succinate 25 mg tablet,extended release 24 hr 25 mg PO DAILY blood pressure #30 tabs 10/25/24 hydrocodone-acetaminophen 5-325mg 5mg-325mg 1 tab PO TID PRN pain 11/22/24 furosemide 80 mg tablet 80 mg PO DAILY #30 tabs 11/27/24
--- NOTE | 2024-11-28 09:43 | CASEMGMT ---
Patient has order for discharge. RN CM in to discuss needs at discharge. Patient states he has walker at home. Patient denies needs or help at discharge. Patient had no further questions or concerns.
[2024-11-28 09:52] LABS: ACT Activated Clotting Time 227 sec (74-137)
[2024-11-28 09:52] LABS: ACT Activated Clotting Time 205 sec (74-137)
--- NOTE | 2024-12-11 09:47 | CL.I_ITS ---
Patient Name: GERRY GARCIA Study Date: 11/27/2024 Performing: Jose Suárez MD Ht: 69 inches 175.26 cm : 1945 Wt: 243.3 lbs 110.22 kg Age: 79 Gender: male BSA: 2.24 PROCEDURE(S) PERFORMED DC02-([id number])LHC/COR IC12-([id number])KENDALL W/WO PTCA, SINGLE CORONARY ARTERY IC11A-([id number])CORONARY INTRAVASCULAR LITHOTRIPSY CLINICAL PROFILE AND CO-MORBIDITIES Indications: Worsening Angina Heart Failure: None Stress/Imaging Stress Test w/SPECT MPI: Yes Result: Positive Intermediate Risk Stress Test with SPECT MPI: Positive Intermediate Risk Angina Classification Anginal Classification w/in 2 Weeks: CCS II CAD Presentations: Stable angina. CONCLUSIONS Stent to anamolous LCX patent RECOMMENDATIONS ASA Indefinitley P2Y12 inhibitors for atleast 6 months DESCRIPTION OF PROCEDURE The patient arrived to the procedure lab. The risks and benefits of the procedure as well as a full description of our services here and lack of surgical backup were fully explained to the patient and/or their significant other prior to the catheterization. The Timeout was completed, verifying the correct patient and procedure. The patient's procedural site was prepped and draped in the usual fashion. Local anesthetic was given subcutaneously to right groin region with Lidocaine 2%. Using a modified Seldinger technique, arterial access was obtained via the right femoral artery, a 6Fr sheath was inserted.. Left Coronary Artery selective angiography was performed in multiple views using a 5 Fr. JL4 catheter. Right Coronary Artery selective angiography was then performed in multiple views using a 5 Fr. 3DRC (Maximo) catheterThe images were reviewed and options discussed. A decision was then made to proceed with an Intervention, IVUS or other adjunct procedure. 3DRC Guide catheter was inserted and engaged into the RCA. The FFR/iFR wire was inserted. Pressures and FFR/iFR were then recorded. iFR Ratio: 0.89 iFR Ratio: 0.88 Adenosine was then given per protocol. The FFR/iFR wire was then removed. Runthrough Guide wire was advanced to the RCA. PTCA balloon inflated at 4 atms for 6 secs. PTCA balloon inflated at 4 atms for 6 secs. PTCA balloon inflated at 4 atms for 11 secs. PTCA balloon inflated at 6 atms for 23 secs. PTCA balloon inflated at 4 atms for 6 secs. PTCA balloon inflated at 6 atms for 20 secs. PTCA balloon inflated at 6 atms for 22 secs. PTCA balloon inflated at 4 atms for 14 secs. PTCA balloon inflated at 4 atms for 16 secs. PTCA balloon inflated at 4 atms for 12 secs. PTCA balloon inflated at 4 atms for 22 secs. Angiogram performed post balloon dilatation. 3.5x30 [place] Drug Eluting stent was inserted. Drug Eluting stent was removed intact, failed to cross lesion 3.5x30 [place] Drug Eluting stent was advanced across the lesion in the right coronary, mid. Angiogram performed post stent deployment. 3.5x20 [place] Emerge Balloon catheter was inserted. Balloon catheter was inserted post stent. Angiogram performed post stent deployment. Angiogram performed post stent deployment. The arterial sheath was pulled and a Perclose closure device was deployed for hemostasis CORONARY ANGIOGRAPHY LEFT MAIN: Angiographically normal LEFT ANTERIOR DESCENDING ARTERY: LAD: Tubular 40% Proximal lesion in LAD Tubular 50% Mid lesion in LAD RIGHT CORONARY ARTERY: RCA: In-Stent Restenosis 70% Proximal lesion in RCA In-Stent Restenosis 70% Proximal lesion in RCA INTERVENTION INFORMATION LESION SITE: RCA (Mid) Lesion Complexity: High/C, Lesion Complexity: High/C, lesion length: 28 mm, In-stent restenosis: Yes Pre Stenosis: 70 % Pre intervention DEXTER flow: 3 PROCEDURE: IVL, Drug Eluting Stent with pre and post dilatation Post Stenosis: 0 % Post intervention DEXTER flow: 3 Lesion Devices: Skillz Coronary FFR Wire Cordis 6 Fr 3DRC 100cm Guide Catheter Terumo .014 180cm Runthrough Extra Floppy straight [employer] Shockwave IVL 3.5x12 Medtronic 3.5 x 30 AVELINO FRONTIER KENDALL [employer] 6 [employer]iner Aquiles Sci NC EMERGE MR 3.50x20 BALLOON COMPLICATIONS No Complications PROCEDURE MEDICATIONS Fentanyl 50 mcg IV Versed 1 mg IV Fentanyl 25 mcg IV Fentanyl 50 mcg IV Oxygen: 2 L/min via nasal cannula Heparin 6000 unit(s) IV 11/27/2024 10:18:13 Heparin 4000 unit(s) IV 11/27/2024 10:37:55 Lasix 60 mg IV 11/27/2024 10:42:45 Heparin 2000 unit(s) IV 11/27/2024 11:15:45 Nitro 200 mcg IC 11/27/2024 11:01:39 Plavix 300 mg PO 11/27/2024 11:17:48 SUMMARY OF HEMODYNAMIC DATA Time AIR REST ECG 08:43:41 AO 134/69 (94) SA 10:11:43 Signed By Jose Suárez MD On 11/27/2024 11:58:42 Jose Suárez MD
== END 2024-11-28 12:28 | disposition home or self-care (01) ==
LOC: CLSP 11:30 → PCU 11:43
PROVIDERS: Admitting Provider Internal Medicine Cardiovascular Disease; PCP Family Medicine; Referring Provider Internal Medicine Cardiovascular Disease; Visit Provider Internal Medicine Cardiovascular Disease
DX: I25.118 Atherosclerotic heart disease of native coronary artery with other forms of angina pectoris (principal); J44.9 Chronic obstructive pulmonary disease, unspecified; E11.22 Type 2 diabetes mellitus with diabetic chronic kidney disease; N18.32 Chronic kidney disease, stage 3b; E78.5 Hyperlipidemia, unspecified; E66.812 Obesity, class 2; Z68.36 Body mass index [BMI] 36.0-36.9, adult; I12.9 Hypertensive chronic kidney disease with stage 1 through stage 4 chronic kidney disease, or unspecified chronic kidney disease; Z95.5 Presence of coronary angioplasty implant and graft
CPT/HCPCS: 36415; 80053; 85027; 85347; 92928; 92972; 93005; 93454; 94002; 99152; 99153; C1761; C1894; J0153; Q9967; A4216; C1725; C1760; C1769; C1874; C1887; C9600; J1938

== ENCOUNTER 2024-11-30 15:17 | Inpatient (IN) | payer MEDICARE, OTHER, SELFPAY ==
[2018-08-03 13:04] VITALS: BMI 19.8
[2024-11-30] VITALS (10 sets, daily range): BP systolic 89–146; BP diastolic 47–83; PULSE 54–93; RESP 15–26; TEMP 36.6; O2SAT 95–100; BMI 35.4
--- NOTE | 2024-11-30 15:38 | EKG12_ITS ---
Test Reason : CP Blood Pressure : */* mmHG Vent. 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
--- NOTE | 2024-11-30 16:05 | ECQM.STEMI ---
STEMI STEMI ED Door Time / Other REG STEMI EKG Time (1) STEMI (ST elevation myocardial infarction): Acute 11/30/24 15:17 Balloon/Aspiration Date-Time Date of Balloon/Aspiration:: 11/30/24 Time of Balloon/Aspiration:: 15:37
--- NOTE | 2024-11-30 16:10 | EDS_ITS ---
HPI History of Present Illness Chief Complaint: Chest Pain Narrative Narrative: 79-year-old male presents via EMS as a STEMI. Prehospital STEMI called from EKG that showed [address] to [address] elevation with reciprocal changes/ST depression. Patient relates history that at around 1230 this afternoon, 3 hours ago, he had nausea and vomiting, left arm pain and numbness, and chest pains. Of note, he had been seen in the emergency department previously/recently where he had chest pains that resolved. He was supposed to have heart catheterization the following day. As his enzymes were negative, he was discharged to have his heart catheterization performed the following day by Dr. Suárez. His reports that while he had his heart catheterization performed, they were having difficulty stenting the area. She states that they were told that if he had future problems, that he might require bypass surgery. In discussion with EMS over the telephone, after EKG was sent, they administered aspirin, Brilinta, and heparin. [facility] Medical History Diabetes mellitus 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 Shortness of breath Unstable angina Fatigue Syncope Left-sided weakness History of COVID-19 Presence of stent in coronary artery (~08/31/22) Dyslipidemia Coronary artery disease Angina pectoris Abnormal PFT Chest heaviness Palpitations DEAN (dyspnea on exertion) Dizziness Leg pain Cough Exposure to COVID-19 virus Nonhealing nonsurgical wound with fat layer exposed Laceration without foreign body of scalp, subsequent encounter Acute left-sided weakness Essential hypertension CHF (congestive heart failure) History of melanoma Obesity (BMI 35.0-39.9 without comorbidity) CAD (coronary artery disease) 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.9) COPD (chronic obstructive pulmonary disease) TIA (transient ischemic attack) Obstructive sleep apnea Chronic kidney disease, stage 3 Atherosclerotic heart disease [place] coronary artery w/angina pectoris Type 2 diabetes mellitus without complications Hyperlipidemia Obesity Home Medications ?Medication ?Instructions ?Recorded ?Last Taken ?Type aspirin 81 mg tablet,delayed 81 mg PO DAILY@0800 healt h 01/21/17 10/11/23 History release maintenance mirtazapine 15 mg tablet (Remeron) 15 mg PO QHS sleep 09/21/18 10/11/23 History cyanocobalamin (vitamin B-12) 1,000 mcg PO DAILY vitam in ##0 06/01/19 10/11/23 History 1,000 mcg capsule magnesium oxide 400 mg (241.3 mg 800 mg PO DAILY SUPPL EMENT 08/01/21 10/11/23 History magnesium) tablet cetirizine 10 mg tablet 10 mg PO DAILY PRN Allergic 09/16/21 10/11/23 History Reaction cholecalciferol (vitamin D3) [address] 10/11/23 History mcg (1,000 unit) tablet fluoxetine 40 mg capsule 80 mg PO DAILY DEPRESSION 90 days 09/16/21 10/11/23 History #180 caps acetaminophen 325 mg tablet 650 mg PO Q6H PRN Pain 1-1 10/12/23 Unknown History glimepiride 4 mg tablet 4 mg PO QDAY diabetes Unknown History atorvastatin 40 mg tablet 40 mg PO QHS CHOLESTEROL #90 tabs 06/14/24 Unknown Rx clopidogrel 75 mg tablet [address] #90 tabs 0 06/14/24 Unknown Rx losartan 100 mg tablet 100 mg PO DAILY blood pressu re #90 06/14/24 Unknown Rx Held on 11/30/24. tabs Instructions: hold per patient nitroglycerin 0.4 mg sublingual 0.4 mg sublingual Q5-1 5M PRN CHEST 06/14/24 Unknown Rx tablet PAIN #25 tabs pantoprazole 40 mg tablet,delayed 40 mg PO DAILY GERD #90 tabs 06/14/24 Unknown Rx release potassium chloride 20 mEq 60 meq (3 x 20 mEq) PO BID 0 06/14/24 Unknown Rx tablet,extended release(part/cryst) supplement #180 ta bs spironolactone 50 mg tablet 50 mg PO DAILY diuretic #9 0 tabs 06/14/24 Unknown Rx amlodipine 5 mg tablet 5 mg PO QPM blood pressure 0 10/25/24 Unknown History isosorbide mononitrate 60 mg 60 mg PO BID heart #90 TA BLETS 10/25/24 Unknown Rx tablet,extended release 24 hr metformin 500 mg tablet 500 mg PO QDAY diabetes 10/02 09/24 Unknown History Held on 11/27/24. Instructions: Resume on 11/30/24. metolazone 2.5 mg tablet 2.5 mg PO QDAY diuretic 10/02 09/24 Unknown History metoprolol succinate 25 mg 25 mg PO DAILY blood pressu re #30 10/25/24 Unknown Rx tablet,extended release 24 hr tabs hydrocodone-acetaminophen 5-325mg 1 tab PO TID PRN jennifer n 11/22/24 11/27/24 History 5mg-325mg furosemide 80 mg tablet 80 mg PO DAILY #30 tabs 11/01 12/25 Unknown Rx Allergy/AdvReac Type Severity Reaction Status Date / Time No Known Allergies Allergy Verified 11/26/24 17:43 Family History Father Parkinsons disease Prostate cancer Mother Osteoporosis Surgical History Presence of coronary angioplasty implant and graft (11/27/24) History of tympanostomy tube placement History of percutaneous transluminal coronary angioplasty (08/18/18) History of herniorrhaphy Hx of cholecystectomy History of tonsillectomy History of prostatectomy Social History household members: spouse and none Smoking Status: Former smoker quit date: 05/03/98 pack-years: 50 how long ago did patient quit smokin years ago alcohol intake: never substance use type: does not use caffeine: Yes Type: coffee and tea Number of servings: 6 ROS ROS ED ROS Narrative Review of systems positive for chest pain, left arm pain and numbness, nausea and vomiting. Mild shortness of breath. No exacerbating or alleviating factors. EXAM Physical Exam Narrative Exam Narrative: Cardiovascular examination reveals regular rate and rhythm. Lungs clear to auscultation bilaterally. Abdomen soft, nontender with positive bowel sounds. Awake, alert, oriented. Const Vital Signs: 11/30/24 15:45 Blood Pressure 146/70 H MDM MDM MDM Narrative Medical decision making narrative: No feel differential diagnosis is applicable as prehospital STEMI has been called. Patient was met in the ambulance bay as reportedly EMS was 30 minutes out previously. Patient was discussed with Dr. Sáurez. He had already received aspirin Brilinta and heparin. Patient taken directly to the catheterization lab. Also, patient discussed with Dr. Ridley. I reviewed his laboratory work that was requested by the Desk Officer. Does not have elevation of his white count at 19.2 with hemoglobin 12.5, hematocrit 39.6, APTT 112.9 but he did receive heparin per squad. High-sensitivity troponin was 61, glucose elevated at 328 with anion gap elevated 19. The patient was admitted to the ICU status post heart catheterization. Patient went directly to the catheterization lab in stable condition. History & Record Review Discussion w/independent historian: Patient and Family Lab Data Attestation: I reviewed the patient's lab results. Labs: Laboratory Results - last 24 hr 11/30/24 11/30/24 11/30/24 14:33 15:25 15:30 WBC 19.2 H RBC 4.26 L Hgb 12.5 L Hct 39.6 L MCV 93.0 MCH 29.3 MCHC 31.6 L RDW Std Deviation 45.9 H RDW Coeff of Adrian 13.5 Plt Count 168 MPV 13.7 H Immature Gran % (Auto) 0.700 Neut % (Auto) 80.9 H Lymph % (Auto) 10.1 L [place] % (Auto) 7.7 Eos % (Auto) 0.4 Baso % (Auto) 0.2 Absolute Neuts (auto) 15.5 H Absolute Lymphs (auto) 1.93 Nucleated RBC % 0.1 PT 16.1 H INR 1.3 APTT 112.9 H* Activated Clotting Time 176 H 187 H Sodium 135 Potassium 4.4 Chloride 98 Carbon Dioxide 18.3 L Anion Gap 19 H BUN 45 H Creatinine 3.10 H Est GFR (MDRD) Non-Af 20 L BUN/Creatinine Ratio 14.4 Glucose 328 H Calcium 9.5 Troponin T High Sens 61 H* D Discharge Plan Dx/Rx/DC Orders Clinical Impression: Chest pain, Chronic kidney disease, stage 3, ST elevation (STEMI) myocardial infarction Disposition Disposition: Acute Care Hospital [facility] Discharge Date/Time: 11/30/24 15:21
--- NOTE | 2024-11-30 16:10 | CHAPLAIN ---
Type of Pastoral Visit ___ Initial Visit ___ Follow-up Visit ___ On-call Visit ___ General Patient Visit ___ Spiritual Assessment ___ Family Conference ___ Bereavement _x__ Rapid Response ___ Code Blue ___ Other (describe below) Pastoral Care Referral From ___ Patient ___ Family ___ Nurse ___ Physician ___ Block Operator ___ Program Director/Music Director _x__ Other (describe below) Sacrament/Intervention _x__ Active listening ___ Anointing ___ Mormonism ___ Bereavement ___ Communion ___ Nicole exploration ___ _x__ Life review _x__ Prayer ___ Reconciliation ___ Sacrament of Sick _x_ Supportive presence ___ Wedding ___ Other (describe below) Pastoral Comments this patient was a stemi alert and was 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; met and daughter at the Ed entrance and took by wheelchair to the [employer] School Social [employer] Teacher waiting area; waited there for other family members to arrive; gave supportive listening to ; spouse gives life updates and asks for prayers for the family as they just lost a niece today; family is to have a wedding on Wednesday and two other weddings and three births in the next few months; spouse is concerned for all of the family in this busy time; pt was in the hospital earlier this week for a heart cath and so concern is that pt may need to be transferred out to another facility if surgery is recommended; gave presence and prayer; family is supporting one another appropriately
[2024-11-30 16:21] LABS: Anion Gap 19 (5-15); BUN 45 mg/dL (4-19); BUN/Creat Ratio 14.4 RATIO (10-20); Calcium,Total 9.5 mg/dL (7.6-11.0); Carbon Dioxide 18.3 mmol/L (21.0-32.0); Chloride 98 mmol/L (98-108); Glucose 328 mg/dL (70-99); Potassium 4.4 mmol/L (3.3-5.1); Troponin T High Sensitivity 61 ng/L (<=22)
[2024-11-30 16:37] LABS: Hematocrit 39.6 % (40-54); Hemoglobin 12.5 g/dL (13.0-16.5); Immature Granulocytes Count 0.140 X10^3/uL (0.0-0.0); Mean Corp Hgb Conc 31.6 g/dL (32-36); Mean Corpuscular Volume 93.0 fL (80-94); Mean Platelet Vol. 13.7 fl (6.2-12.0); NRBC Flagged by Analyzer 0.1 % (0-5); Platelet Count 168 K/mm3 (150-450); RBC Distribution Width CV 13.5 % (11.6-14.6); RBC Distribution Width SD 45.9 fl (35.1-43.9); Red Blood Count 4.26 M/mm3 (4.6-6.2); White Blood Count 19.2 K/mm3 (4.4-11.0)
--- NOTE | 2024-11-30 16:42 | CON.PCM.CA_ITS ---
Assessment & Plan Assessment/Plan (1) ST elevation (STEMI) myocardial infarction: PLAN: Emergent coronary angiography revealed subacute stent thrombosis of the proximal right coronary artery. Emergent percutaneous revascularization with balloon angioplasty to the previously deployed stent to the proximal RCA. Thrombus embolization to the right posterior lateral ventricular branch was treated with balloon angioplasty and placement of 2 drug-eluting stents. DEXTER-3 flow was restored. Intravascular ultrasound showed excellent apposition of the stent to the proximal right coronary artery. However there is 360 degree arc of heavy calcification of the vessel. Will stop the patient's clopidogrel. Start him on ticagrelor. Continue aspirin. (2) Coronary artery disease: PLAN: See #1 above. (3) Essential hypertension: PLAN: Furosemide, losartan and metoprolol. (4) Chronic kidney disease: PLAN: Monitor creatinine. (5) Dyslipidemia: PLAN: Atorvastatin. (6) Diabetes mellitus: HPI Consult Data Date of Consult: 11/30/24 HPI Narrative Reason for Consultation: STEMI HPI Narrative: 79-year-old gentleman with history significant for coronary artery disease. He has had coronary angiography done this last Wednesday which revealed severe in- stent restenosis of a heavily calcified proximal right coronary artery. Percutaneous intervention was performed with shockwave intracoronary lithotripsy and a drug-eluting stent. Per patient, he developed acute chest discomfort earlier this afternoon. Positive nausea and vomiting. EMS was called. An ECG was done in the field. Which showed changes consistent with an acute inferior myocardial infarction. Subsequently a STEMI alert was called. [facility] Medical History (Updated 11/30/24 @ 16:[address] Jose Suárez MD) Diabetes mellitus Chronic kidney disease Shortness of breath Unstable angina Fatigue Syncope Left-sided weakness History of COVID-19 Presence of stent in coronary artery (~08/31/22) Dyslipidemia Coronary artery disease Angina pectoris Abnormal PFT Chest heaviness Palpitations DEAN (dyspnea on exertion) Dizziness Leg pain Cough Exposure to COVID-19 virus Nonhealing nonsurgical wound with fat layer exposed Laceration without foreign body of scalp, subsequent encounter Acute left-sided weakness Essential hypertension CHF (congestive heart failure) History of melanoma Obesity (BMI 35.0-39.9 without comorbidity) CAD (coronary artery disease) 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.9) COPD (chronic obstructive pulmonary disease) TIA (transient ischemic attack) Obstructive sleep apnea Chronic kidney disease, stage 3 Atherosclerotic heart disease [id number] coronary artery w/angina pectoris Type 2 diabetes mellitus without complications Hyperlipidemia Obesity Home Medications ?Medication ?Instructions ?Recorded ?Last Taken ?Type aspirin 81 mg tablet,delayed 81 mg PO DAILY@0800 healt h 01/21/17 10/11/23 History release maintenance mirtazapine 15 mg tablet (Remeron) 15 mg PO QHS sleep 09/21/18 10/11/23 History cyanocobalamin (vitamin B-12) 1,000 mcg PO DAILY vitam in ##0 06/01/19 10/11/23 History 1,000 mcg capsule magnesium oxide 400 mg (241.3 mg 800 mg PO DAILY SUPPL EMENT 08/01/21 10/11/23 History magnesium) tablet cetirizine 10 mg tablet 10 mg PO DAILY PRN Allergic 09/16/21 10/11/23 History Reaction cholecalciferol (vitamin D3) [address] 10/11/23 History mcg (1,000 unit) tablet fluoxetine 40 mg capsule 80 mg PO DAILY DEPRESSION 90 days 09/16/21 10/11/23 History #180 caps acetaminophen 325 mg tablet 650 mg PO Q6H PRN Pain 1-1 10/12/23 Unknown History glimepiride 4 mg tablet 4 mg PO QDAY diabetes Unknown History atorvastatin 40 mg tablet 40 mg PO QHS CHOLESTEROL #90 tabs 06/14/24 Unknown Rx clopidogrel 75 mg tablet [address] #90 tabs 0 06/14/24 Unknown Rx losartan 100 mg tablet 100 mg PO DAILY blood pressu re #90 06/14/24 Unknown Rx tabs nitroglycerin 0.4 mg sublingual 0.4 mg sublingual Q5-1 5M PRN CHEST 06/14/24 Unknown Rx tablet PAIN #25 tabs pantoprazole 40 mg tablet,delayed 40 mg PO DAILY GERD #90 tabs 06/14/24 Unknown Rx release potassium chloride 20 mEq 60 meq (3 x 20 mEq) PO BID 0 06/14/24 Unknown Rx tablet,extended release(part/cryst) supplement #180 ta bs spironolactone 50 mg tablet 50 mg PO DAILY diuretic #9 0 tabs 06/14/24 Unknown Rx albuterol sulfate 90 mcg/actuation 2 inh inhalation Q4 -6H PRN 09/20/24 Unknown Rx aerosol inhaler shortness of breath or wheez ing #8.5 grams amlodipine 5 mg tablet 5 mg PO QPM blood pressure 0 10/25/24 Unknown History isosorbide mononitrate 60 mg 60 mg PO BID heart #90 TA BLETS 10/25/24 Unknown Rx tablet,extended release 24 hr metformin 500 mg tablet 500 mg PO QDAY diabetes 10/02 09/24 Unknown History Held on 11/27/24. Instructions: Resume on 11/30/24. metolazone 2.5 mg tablet 2.5 mg PO QDAY diuretic 10/02 09/24 Unknown History metoprolol succinate 25 mg 25 mg PO DAILY blood pressu re #30 10/25/24 Unknown Rx tablet,extended release 24 hr tabs hydrocodone-acetaminophen 5-325mg 1 tab PO TID PRN jennifer n 11/22/24 11/27/24 History 5mg-325mg furosemide 80 mg tablet 80 mg PO DAILY #30 tabs 11/01 12/25 Unknown Rx Allergy/AdvReac Type Severity Reaction Status Date / Time No Known Allergies Allergy Verified 11/26/24 17:43 Family History Father Parkinsons disease Prostate cancer Mother Osteoporosis Surgical History Presence of coronary angioplasty implant and graft (11/27/24) History of tympanostomy tube placement History of percutaneous transluminal coronary angioplasty (08/18/18) History of herniorrhaphy Hx of cholecystectomy History of tonsillectomy History of prostatectomy Social History household members: spouse and none Smoking Status: Former smoker quit date: 05/03/98 pack-years: 50 how long ago did patient quit smokin years ago alcohol intake: never substance use type: does not use caffeine: Yes Type: coffee and tea Number of servings: 6 Physical Exam Narrative Mildly anxious. Obese. Heart sounds 1 and 2 noted. Chest clear to auscultation. Alert oriented x 3. 2+ bilateral lower extremity edema. Risk Stratification Risk Stratification Applicable: No Lab / Micro Data 11/30/24 15:25 11/30/24 15:25 Labs: Laboratory Results - last 24 hr 11/30/24 15:25: WBC 19.2 H, RBC 4.26 L, Hgb 12.5 L, Hct 39.6 L, MCV 93.0, MCH 29.3, MCHC 31.6 L, RDW Std Deviation 45.9 H, RDW Coeff of [place] 13.5, Plt Count 168, MPV 13.7 H, Immature Gran % (Auto) 0.700, Neut % (Auto) 80.9 H, Lymph % (Auto) 10.1 L, [place] % (Auto) 7.7, Eos % (Auto) 0.4, Baso % (Auto) 0.2, Absolute Neuts (auto) 15.5 H, Absolute Lymphs (auto) 1.93, Nucleated RBC % 0.1, Sodium 135, Potassium 4.4, Chloride 98, Carbon Dioxide 18.3 L, Anion Gap 19 H, BUN 45 H , Creatinine 3.10 H, Est GFR (MDRD) Non-Af 20 L, BUN/Creatinine Ratio 14.4, G lucose 328 H, Calcium 9.5, Troponin T High Sens 61 H* D Cardiology Labs/Tests 11/30/24 15:25: WBC 19.2 H, RBC 4.26 L, Hgb 12.5 L, Hct 39.6 L, MCV 93.0, MCH 29.3, MCHC 31.6 L, Plt Count 168, MPV 13.7 H, Immature Gran % (Auto) 0.700, Neut % (Auto) 80.9 H, Lymph % (Auto) 10.1 L, [place] % (Auto) 7.7, Eos % (Auto) 0.4, Baso % (Auto) 0.2, Absolute Neuts (auto) 15.5 H, Nucleated RBC % 0.1, Sodium 135, Potassium 4.4, Chloride 98, Carbon Dioxide 18.3 L, Anion Gap 19 H, BUN 45 H , Creatinine 3.10 H, Est GFR (MDRD) Non-Af 20 L, BUN/Creatinine Ratio 14.4, G lucose 328 H, Calcium 9.5 Rhythm: EKG: ECHO: Stress Test: Cardiac Cath: PCI: CT Surgery: Holter monitor: EPS: PPM: CXR: Chest CT Scan:
[2024-11-30 16:47] LABS: ACT Activated Clotting Time 176 sec (74-137)
[2024-11-30 16:47] LABS: ACT Activated Clotting Time 187 sec (74-137)
--- NOTE | 2024-11-30 16:52 | CM.ED ---
Social work Reason for referral: STEMI alert This SW responded to the labor training manager for the STEMI alert. SW knows patient and patient's family from the community and offered supportive presence. SW actively listened to patient's and daughters update SW on patient's health, patient's family's recent loss, patient's upcoming family weddings and family pregnancies, etc. With patient's 's permission, SW contacted patient's senior technical architect to inform the senior technical architect of patient's current condition. Patient's family denied further needs at this time. Kristi Raza, CASING FINISHER AND STUFFER, NUTRITION INSTRUCTOR
--- NOTE | 2024-11-30 17:05 | HP.PCM.HOS_ITS ---
HPI - General General Date of Admission: 11/30/24 Date of Service: 11/30/24 Chief Complaint: STEMI HPI Narrative GERRY GARCIA, is a 79 M who presented to [facility] on 11/30/2024 as a STEMI alert. Follows with [place] [facility] with complex CAD history, see office note from 11/22 for further details. In short, initially stenting x 2 done to the RCA in 2005. 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 Had recurrent chest pain in October and stress test on 11/10 showed mild sriram-infarct ischemia. Left heart cath on 11/27 showed severe in-stent restenosis of a heavily calcified proximal RCA; percutaneous intervention was performed with shockwave intracoronary lithotripsy and a drug-eluting stent. Left circumflex stent was patent. Patient then presented today with acute chest discomfort with nausea and vomiting. EKG was consistent with acute inferior STEMI. He was taken emergently to the [facility] and coronary angiography revealed a subacute stent thrombosis of the proximal RCA. Had emergent percutaneous revascularization with balloon angioplasty to the previously deployed stent to the proximal RCA. Had thrombus embolization to the right posterior lateral ventricular branch that was treated with balloon angioplasty and placement of 2 new drug-eluting stents as well. Post-cath, patient was taken to the ICU for further management. I saw the patient in the ICU shortly after he arrived there, several point members were present. Patient was sitting back fairly comfortably in bed, conversing normally and in no acute distress. He did report mild residual left-sided chest pain, much improved from earlier today. Denied any radiation of the pain. He was hemodynamically stable on room air. No other acute concerns currently. FORMERLY [facility] Medical History Diabetes mellitus Chronic kidney disease Shortness of breath Unstable angina Fatigue Syncope Left-sided weakness History of COVID-19 Presence of stent in coronary artery (~08/31/22) Dyslipidemia Coronary artery disease Angina pectoris Abnormal PFT Chest heaviness Palpitations DEAN (dyspnea on exertion) Dizziness Leg pain Cough Exposure to COVID-19 virus Nonhealing nonsurgical wound with fat layer exposed Laceration without foreign body of scalp, subsequent encounter Acute left-sided weakness Essential hypertension CHF (congestive heart failure) History of melanoma Obesity (BMI 35.0-39.9 without comorbidity) CAD (coronary artery disease) 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.9) COPD (chronic obstructive pulmonary disease) TIA (transient ischemic attack) Obstructive sleep apnea Chronic kidney disease, stage 3 Atherosclerotic heart disease [place] coronary artery w/angina pectoris Type 2 diabetes mellitus without complications Hyperlipidemia Obesity Home Medications ?Medication ?Instructions ?Recorded ?Last Taken ?Type aspirin 81 mg tablet,delayed 81 mg PO DAILY@0800 healt h 01/21/17 10/11/23 History release maintenance mirtazapine 15 mg tablet (Remeron) 15 mg PO QHS sleep 09/21/18 10/11/23 History cyanocobalamin (vitamin B-12) 1,000 mcg PO DAILY vitam in ##0 06/01/19 10/11/23 History 1,000 mcg capsule magnesium oxide 400 mg (241.3 mg 800 mg PO DAILY SUPPL EMENT 08/01/21 10/11/23 History magnesium) tablet cetirizine 10 mg tablet 10 mg PO DAILY PRN Allergic 09/16/21 10/11/23 History Reaction cholecalciferol (vitamin D3) [address] 10/11/23 History mcg (1,000 unit) tablet fluoxetine 40 mg capsule 80 mg PO DAILY DEPRESSION 90 days 09/16/21 10/11/23 History #180 caps acetaminophen 325 mg tablet 650 mg PO Q6H PRN Pain 1-1 10/12/23 Unknown History glimepiride 4 mg tablet 4 mg PO QDAY diabetes Unknown History atorvastatin 40 mg tablet 40 mg PO QHS CHOLESTEROL #90 tabs 06/14/24 Unknown Rx clopidogrel 75 mg tablet [address] #90 tabs 0 06/14/24 Unknown Rx losartan 100 mg tablet 100 mg PO DAILY blood pressu re #90 06/14/24 Unknown Rx Held on 11/30/24. tabs Instructions: hold per patient nitroglycerin 0.4 mg sublingual 0.4 mg sublingual Q5-1 5M PRN CHEST 06/14/24 Unknown Rx tablet PAIN #25 tabs pantoprazole 40 mg tablet,delayed 40 mg PO DAILY GERD #90 tabs 06/14/24 Unknown Rx release potassium chloride 20 mEq 60 meq (3 x 20 mEq) PO BID 0 06/14/24 Unknown Rx tablet,extended release(part/cryst) supplement #180 ta bs spironolactone 50 mg tablet 50 mg PO DAILY diuretic #9 0 tabs 06/14/24 Unknown Rx amlodipine 5 mg tablet 5 mg PO QPM blood pressure 0 10/25/24 Unknown History isosorbide mononitrate 60 mg 60 mg PO BID heart #90 TA BLETS 10/25/24 Unknown Rx tablet,extended release 24 hr metformin 500 mg tablet 500 mg PO QDAY diabetes 10/02 09/24 Unknown History Held on 11/27/24. Instructions: Resume on 11/30/24. metolazone 2.5 mg tablet 2.5 mg PO QDAY diuretic 10/02 09/24 Unknown History metoprolol succinate 25 mg 25 mg PO DAILY blood pressu re #30 10/25/24 Unknown Rx tablet,extended release 24 hr tabs hydrocodone-acetaminophen 5-325mg 1 tab PO TID PRN jennifer n 11/22/24 11/27/24 History 5mg-325mg furosemide 80 mg tablet 80 mg PO DAILY #30 tabs 11/01 12/25 Unknown Rx Allergy/AdvReac Type Severity Reaction Status Date / Time No Known Allergies Allergy Verified 11/26/24 17:43 Family History Father Parkinsons disease Prostate cancer Mother Osteoporosis Surgical History Presence of coronary angioplasty implant and graft (11/27/24) History of tympanostomy tube placement History of percutaneous transluminal coronary angioplasty (08/18/18) History of herniorrhaphy Hx of cholecystectomy History of tonsillectomy History of prostatectomy Social History household members: spouse and none Smoking Status: Former smoker quit date: 05/03/98 pack-years: 50 how long ago did patient quit smokin years ago alcohol intake: never substance use type: does not use caffeine: Yes Type: coffee and tea Number of servings: 6 ROS Constitutional Constitutional: Reports fatigue; Denies chills, fever(s) or weakness Eyes Eyes: Denies change in vision Cardiovascular Cardiovascular: Reports chest pain; Denies dyspnea on exertion, edema, lightheadedness or palpitations Respiratory/Chest Respiratory/Chest: Denies cough, shortness of breath at rest or wheezing Gastrointestinal Gastrointestinal: Denies abdominal pain Neurologic Neurologic: Denies dizziness, focal weakness or headache(s) Vital Signs Vital Signs Vital Signs: 11/30/24 15:45 Blood Pressure 146/70 H Physical Exam Const alert, oriented x3 and no apparent distress Constitutional Narrative: Elderly male, class II obesity, mildly fatigued appearing but otherwise sitting back comfortably in bed, conversing normally, in no acute distress. General Appearance: cooperative and comfortable HEENT normocephalic, head/scalp atraumatic, hearing grossly normal bilaterally, nasal mucous membranes and turbinates normal and moist oral mucous membranes Eyes PERRL, EOMs intact bilaterally and conjunctivae normal Neck full ROM Chest inspection of chest normal Resp normal respiratory effort, normal air movement, no use of accessory muscles and clear to auscultation bilaterally Resp Narrative: Breathing comfortably on room air at rest. Mildly diminished breath sounds in lung bases but otherwise no wheezing or crackles noted. Cardio regular rate, regular rhythm, no murmurs and peripheral pulses 2+ throughout GI normal to inspection, nondistended, normoactive bowel sounds, soft to palpation, non-tender and non-distended Back/Spine normal ROM Extremity normal to inspection, full ROM and no pedal edema Skin no rashes or lesions noted Psych mental status grossly normal Results Lab / Micro Data 11/30/24 15:25 11/30/24 15:25 Labs: Laboratory Results - last 24 hr 11/30/24 14:33: Activated Clotting Time 176 H 11/30/24 15:25: WBC 19.2 H, RBC 4.26 L, Hgb 12.5 L, Hct 39.6 L, MCV 93.0, MCH 29.3, MCHC 31.6 L, RDW Std Deviation 45.9 H, RDW Coeff of Adrian 13.5, Plt Count 168, MPV 13.7 H, Immature Gran % (Auto) 0.700, Neut % (Auto) 80.9 H, Lymph % (Auto) 10.1 L, [place] % (Auto) 7.7, Eos % (Auto) 0.4, Baso % (Auto) 0.2, Absolute Neuts (auto) 15.5 H, Absolute Lymphs (auto) 1.93, Nucleated RBC % 0.1, Sodium 135, Potassium 4.4, Chloride 98, Carbon Dioxide 18.3 L, Anion Gap 19 H, BUN 45 H , Creatinine 3.10 H, Est GFR (MDRD) Non-Af 20 L, BUN/Creatinine Ratio 14.4, G lucose 328 H, Calcium 9.5, Troponin T High Sens 61 H* D 11/30/24 15:30: Activated Clotting Time 187 H Assessment & Plan Assessment/Plan (1) STEMI (ST elevation myocardial infarction): PLAN: Plan Patient is a 79-year-old male who presented [facility] ED on 11/30/2024 as a STEMI alert. 1. STEMI; history of CAD with stenting complicated by in-stent restenosis, hypertension, hyperlipidemia ? Admit under inpatient status to ICU. Cardiology following. See HPI for further details regarding CAD history. Presented with acute chest pain and EKG showed inferior STEMI. Emergent left heart cath showed subacute stent thrombosis of the proximal RCA s/p percutaneous revascularization with balloon angioplasty to the previously deployed stent (on 11/27) to the proximal RCA; had thrombus embolization to the right posterior lateral ventricular branch that was treated with balloon angioplasty and placement of 2 new drug-eluting stents as well. Per cardiology, will stop Plavix and start Brilinta. Continue home aspirin, statin, amlodipine, and Toprol. Given SUSAN as below, will hold home Lasix, losartan, spironolactone and metolazone for now. Appreciate cardiology recommendations on timing of restarting these medications. Echo ordered. Continue cardiac monitoring. 2. SUSAN on CKD stage IIIb ? Creatinine 3.10 on admit, baseline around 1.9. Suspect prerenal etiology in setting of STEMI as above. Given 1 L of IV fluids over several hours by cardiology after STEMI. Follow-up a.m. BMP and monitor urine output. 3. Leukocytosis ? WBC count 19,000 on admit. Afebrile, no other infectious symptoms noted. Suspect secondary to acute stress state in setting of STEMI. Follow-up a.m. CBC. Chronic medical conditions: ? Class II obesity: BMI 35 on admit. Complicates hospital course and care. ? Type 2 diabetes mellitus with hyperglycemia: Blood glucose 328 on admit. Last A1c from 2022 was 7.7%. Repeat A1c ordered. Hold home metformin and glimepiride. Will treat with sliding scale insulin with meals for now, adjust as needed. ? GERD: Continue home PPI. ? Anxiety/depression/insomnia: Continue home fluoxetine and mirtazapine. ? Chronic pain syndrome: Continue home hydrocodone?acetaminophen 3 times daily as needed. DVT prophylaxis: Heparin subcu CODE STATUS: Full code, verified Expected disposition: Home, TBD Total clinical time spent by myself addressing the patient's medical issues, reviewing all the data, and collaborating with patient's care team: 75 minutes. Charges/Coding Visit Charges Inpatient E&M: 48198 Init Hosp L3
[2024-11-30 17:09] LABS: Prothrombin Time (Protime)PT. 16.1 SECONDS (11.7-14.9)
[2024-11-30 17:24] LABS: Partial Thromboplast Time 112.9 Seconds (24.1-36.2)
[2024-11-30] MEDS: 0.9% Normal Saline (1000mL) 1,000 ML 100 ML IV (17:51)
--- NOTE | 2024-11-30 18:50 | RAD_ITS ---
PROCEDURE: CHEST 1 VIEW (PORTABLE) 11/30/2024 REASON FOR EXAM: HYPOXIA TECHNIQUE: Frontal view of the chest. COMPARISON: 11/26/2024 FINDINGS: Lungs/Pleura: Clear. No focal consolidation, pneumothorax or sizable pleural effusion. Prominent epicardial fat pad silhouetting the left lung base. Heart/Mediastinum: Mild cardiomegaly. Tortuous and calcified thoracic aorta. Bones/Soft tissues: Degenerative changes of the spine. Left glenohumeral joint arthrosis with calcified probable loose body inferiorly. Cholecystectomy surgical clips. RAD/Chest 1 View (Portable) IMPRESSION: Cardiomegaly. No evidence of acute pulmonary disease. Reading Location: [id number]
[2024-11-30] MEDS: 0.9% Saline Lock 10 ML Syringe IV (19:52)
[2024-11-30] MEDS: HYDROcodone Bitartrate/Apap 5/325 Tablet PO (19:53)
[2024-11-30] MEDS: MELATONIN 3 MG TABLET PO (21:27)
[2024-11-30] MEDS: TICAGRELOR 90 MG TABLET PO (21:28)
[2024-12-01] VITALS (22 sets, daily range): BP systolic 89–136; BP diastolic 56–82; PULSE 62–81; RESP 11–21; TEMP 36–36.8; O2SAT 95–100; BMI 36.1
[2024-12-01 04:27] LABS: Hematocrit 33.2 % (40-54); Hemoglobin 10.8 g/dL (13.0-16.5); Mean Corp Hgb Conc 32.5 g/dL (32-36); Mean Corpuscular Volume 90.2 fL (80-94); Mean Platelet Vol. 12.7 fl (6.2-12.0); Platelet Count 142 K/mm3 (150-450); RBC Distribution Width CV 14.0 % (11.6-14.6); RBC Distribution Width SD 45.8 fl (35.1-43.9); Red Blood Count 3.68 M/mm3 (4.6-6.2); White Blood Count 14.6 K/mm3 (4.4-11.0)
[2024-12-01 05:01] LABS: AST(SGOT) 497 U/L (<=37); Alanine Aminotransfer ALT/SGPT 77 U/L (<=46); Albumin, Serum 3.7 g/dL (3.4-4.8); Alkaline Phosphatase 82 U/L (40-129); Anion Gap 14 (5-15); BUN 45 mg/dL (4-19); BUN/Creat Ratio 14.2 RATIO (10-20); Calcium,Total 8.7 mg/dL (7.6-11.0); Carbon Dioxide 20.3 mmol/L (21.0-32.0); Chloride 100 mmol/L (98-108); Estimated Creatinine Clearance 23.23 ml/min (50-250); Globulin 2.4 g/dL (2.2-4.2); Glucose 157 mg/dL (70-99); Potassium 5.0 mmol/L (3.3-5.1)
--- NOTE | 2024-12-01 07:00 | ECHOLC_ITS ---
Reason For Study Reason For Study: CHEST PAIN Procedure This was a 2D Doppler, Color Flow transthoracic echocardiogram. The study was technically difficult. The patient was scanned supine. Due to body habitus. Exam performed portable in ICU/CCU. Left Ventricle Normal left ventricular size. Mild left ventricular hypertrophy. Mildly reduced LVEF with estimated ejection fraction of 50%. There is basal to mid lateral wall akinesis. There is basal inferoseptal hypokinesis. There is basal inferior hypokinesis. Grade 1 diastolic dysfunction. Right Ventricle Mildly increased right ventricular size. Preserved function. Mitral Valve The mitral valve is structurally normal. No prolapse or stenosis seen. Mild (1+) mitral valve insufficiency. Tricuspid Valve Normal tricuspid valve. Trivial tricuspid valve insufficiency. Aortic Valve Mild diffuse aortic valve thickening. There is no aortic stenosis. No aortic valve insufficiency. Pulmonic Valve The pulmonic valve is not well visualized. Great Vessels Normal sized aortic root. Pericardium/Pleural Small anterior pericardial effusion with no hemodynamic significance. Epicardial fat. Medication Diluted definity 2.0ml given slow IV push to enhance endocardial definition. MMode/2D Measurements & Calculations LVIDd: 5.6 cm IVSd: 0.72 cm LAV(MOD- bp): 51.6 ml LVIDs: 4.1 cm LVPWd: 1.1 cm LAV(MOD- bp) Indexed: 23.0 ml/m2 RVDd: 3.4 cm FS: 26.6 % LAV(MOD- sp2): 45.7 ml LAV(MOD- sp4): 48.3 ml SV(MOD- sp4): 69.5 ml LVAd ap4: 34.0 cm2 LVAd ap2: 30.7 cm2 LVLd ap4: 7.9 cm LVLd ap2: 7.2 cm SI(MOD- sp4): 31.0 ml/m2 EDV(MOD-sp4): 119.5 ml EDV(MOD-sp2): 106.8 ml EDV(sp4-el): 125.0 ml EDV(sp2-el): 110.6 ml LVAs ap4: 19.4 cm2 LVAs ap2: 18.6 cm2 LVLs ap4: 6.2 cm LVLs ap2: 6.8 cm ESV(MOD-sp4): 50.1 ml ESV(MOD-sp2): 44.6 ml ESV(sp4-el): 51.5 ml ESV(sp2-el): 42.9 ml EF(MOD-sp4): 58.1 % EF(MOD-sp2): 58.2 % EF(sp4-el): 58.8 % SV(MOD-sp2): 62.2 ml SV(sp4-el): 73.5 ml LA A4 area: 16.0 cm2 SI(MOD-sp2): 27.7 ml/m2 RA A4 area: 15.2 cm2 ECHO/Echo Limited w/Contrast Interpretation Summary Normal left ventricular size. Mild left ventricular hypertrophy. Mildly reduced LVEF with estimated ejection fraction of 50%. There is basal to mid lateral wall akinesis. There is basal inferoseptal h ypokinesis. There is basal inferior hypokinesis. Grade 1 diastolic dysfunction. Mildly increased right ventricular size. Preserved function. No hemodynamically significant valvular heart disease. Small anterior pericardial effusion with no hemodynamic significance. Epicardial fat. Ordering Physician: Jose Suárez Referring Physician: Vicotr M Luke Performed By: Treva Black, DRU, RVT
--- NOTE | 2024-12-01 07:13 | PN.HOSP_ITS ---
Reason for Visit Chief Complaint: STEMI Subjective Subjective No issues overnight. No CP. Did have some bright red blood per rectum with bowel movement but remains hemodynamically stable repeat hemoglobin is pending. States he intermittently gets these bouts where he feels short of breath. Per discussion with nursing he is not hypoxic at all during these events. I question if he is anxious and he states he does not feel anxious when it happens. Will continue to monitor. Objective Data Objective Data Vital Signs: Vital Signs Temp Pulse Resp BP Pulse Ox O2 Del Method O2 Flow Rate 98 F 70 16 111/64 98 Nasal Cannula 2 12/01/24 04:00 12/01/24 07:00 12/01/24 07:00 12/01/24 07:00 12/01/24 07:00 12/01/24 07:00 12/01/24 07:00 Oxygen Flow Rate (L/min) 2 Oxygen Delivery Method Nasal Cannula Weight: 110.54 kg Body Mass Index (BMI) 36.1 Intake & Output: Intake and Output for Last 24 Hours 11/29/24 11/30/24 12/01/24 23:59 23:59 23:59 Intake Total 1000 / 1000 Balance 1000 / 1000 Lab / Micro Data 12/01/24 04:05 12/01/24 04:05 Labs: Laboratory Results - last 24 hr 11/30/24 14:33: Activated Clotting Time 176 H 11/30/24 15:25: WBC 19.2 H, RBC 4.26 L, Hgb 12.5 L, Hct 39.6 L, MCV 93.0, MCH 29.3, MCHC 31.6 L, RDW Std Deviation 45.9 H, RDW Coeff of Adrian 13.5, Plt Count 168, MPV 13.7 H, Immature Gran % (Auto) 0.700, Neut % (Auto) 80.9 H, Lymph % (Auto) 10.1 L, [place] % (Auto) 7.7, Eos % (Auto) 0.4, Baso % (Auto) 0.2, Absolute Neuts (auto) 15.5 H, Absolute Lymphs (auto) 1.93, Nucleated RBC % 0.1, PT 16.1 H , INR 1.3, APTT 112.9 H*, Sodium 135, Potassium 4.4, Chloride 98, Carbon Dioxide 18.3 L, Anion Gap 19 H, BUN 45 H, Creatinine 3.10 H, Est GFR (MDRD) Non-Af 20 L, BUN/Creatinine Ratio 14.4, Glucose 328 H, Hemoglobin A1c 7.0 H, Calcium 9.5, T roponin T High Sens 61 H* D 11/30/24 15:30: Activated Clotting Time 187 H 11/30/24 21:11: POC Glucose 167 H 12/01/24 04:05: WBC 14.6 H, RBC 3.68 L, Hgb 10.8 L, Hct 33.2 L, MCV 90.2, MCH 29.3, MCHC 32.5, RDW Std Deviation 45.8 H, RDW Coeff of Adrian 14.0, Plt Count 142 L, MPV 12.7 H, Sodium 134, Potassium 5.0, Chloride 100, Carbon Dioxide 20.3 L, Anion Gap 14, BUN 45 H, Creatinine 3.16 H, Estim Creat Clear Calc 23.23 L, Est GFR (MDRD) Non-Af 19 L, BUN/Creatinine Ratio 14.2, Glucose 157 H, Calcium 8.7, Total Bilirubin 1.07, AST 497 H, ALT 77 H, Alkaline Phosphatase 82, Total Protein 6.0, Albumin 3.7, Globulin 2.4, Albumin/Globulin Ratio 1.5 Radiography Diagnostic Testing: Radiology Impression Chest X-Ray 11/30/24 18:50 IMPRESSION: Cardiomegaly. No evidence of acute pulmonary disease. Reading Location: [facility] Physical Exam Const alert, oriented x3, no apparent distress and well nourished; Negative for average body habitus or healthy appearing Constitutional Narrative: Elderly, white male, sitting up in bed, appears comfortable, nontoxic HEENT head/scalp atraumatic and moist oral mucous membranes HEENT Narrative: Mallampati 3-4 Head and Scalp: normocephalic Resp normal respiratory effort, no retractions, no use of accessory muscles and clear to auscultation bilaterally Auscultation: Negative for crackles, rhonchi or wheezes Cardio regular rate, regular rhythm, S1 normal heart sound, S2 normal heart sound, no murmurs, no rub, no gallops and no clicks GI normal to inspection, nondistended, normoactive bowel sounds, soft to palpation and non-tender Extremity no clubbing, cyanosis or edema Extremity Narrative: 2+ pedal and radial pulses Neuro oriented x3, moves all extremities and no focal motor deficits Speech: speech normal Psych Psych Narrative: Affect is slightly flat but patient interacts appropriately Assessment & Plan Assessment/Plan (1) ST elevation (STEMI) myocardial infarction: (2) Acute kidney injury superimposed on stage 4 chronic kidney disease: (3) Leukocytosis: PLAN: Plan STEMI - Emergent cath yesterday showed subacute stent thrombosis in the proximal right coronary artery with percutaneous revascularization and PCI with KENDALL to proximal RCA - Thrombus embolized to the right posterior lateral ventricle branch which was treated with balloon angioplasty and placement of 2 drug-eluting stents with DEXTER flow 3 restored following - Mild persistent ST elevation following cardiac catheterization - Transitioned from Plavix to Brilinta - Continue aspirin - Continue statin - Hold losartan due to renal dysfunction - Amlodipine 5 mg daily started - Continue isosorbide mononitrate - Continue metoprolol - Echocardiogram done and shows mild left ventricular hypertrophy with mildly reduced left ventricular ejection fraction of 50% with basal and mid lateral wall akinesis and basal inferoseptal hypokinesis as well as basal inferior hypokinesis and grade 1 diastolic dysfunction, mild RV dilation with preserved function, no valvular abnormalities and a small epicardial fat pad Leukocytosis - Suspect reactive - Repeat in a.m. Thrombocytopenia - Mild - Seems like this has been more of an acute change - Repeat lab in a.m. and would recommend outpatient follow-up to assess for stabilization if not further workup Rectal bleeding - Highly suspect hemorrhoidal based on report - Will repeat hemoglobin 6 hours after event to ensure stability with the with the platelet therapy SUSAN on CKD stage IV - Baseline renal function appears to run between 2 and 2.5 - Currently 3.16 but seems to be stabilizing - Patient had 2 cardiac catheterizations requiring contrast this week so could be some contrast-induced nephropathy - Hold nephrotoxins including Aldactone, metolazone, Lasix, and losartan DM-2 - Hemoglobin A1c is 7.0 - Will hold glimepiride and metformin while hospitalized - SSI - Accu-Cheks as ordered - Cardiac/carb controlled diet CAD/essential hypertension/hyperlipidemia - continue aspirin and transition to Brilinta - Continue metoprolol - continue isosorbide mononitrate - start amlodipine per cardiology - Discontinue losartan due to renal function at baseline GERD Continue home PPI Chronic pain syndrome - Continue home pain medication Anxiety/depression/insomnia - Continue fluoxetine - Continue home mirtazapine DVT prophylaxis - Continue subcu heparin Charges/Coding Visit Charges Inpatient E&M: 19020 Subs Hosp L2
--- NOTE | 2024-12-01 07:34 | PN.CARD_ITS ---
Subjective Subjective Patient seen and evaluated. Doing better this morning. Objective Data Vital Signs: Vital Signs Temp Pulse Resp BP Pulse Ox O2 Del Method O2 Flow Rate 98 F 70 16 111/64 100 Nasal Cannula 1 12/01/24 04:00 12/01/24 07:00 12/01/24 07:00 12/01/24 07:00 12/01/24 07:32 12/01/24 07:32 12/01/24 07:32 Oxygen Flow Rate (L/min) 1 Oxygen Delivery Method Nasal Cannula Weight: 243 lb 11.2 oz Body Mass Index (BMI) 36.1 Intake & Output: Intake and Output for Last 24 Hours 11/29/24 11/30/24 12/01/24 23:59 23:59 23:59 Intake Total 1000 / 1000 Balance 1000 / 1000 Lab / Micro Data 12/01/24 04:05 12/01/24 04:05 Labs: Laboratory Results - last 24 hr 11/30/24 14:33: Activated Clotting Time 176 H 11/30/24 15:25: WBC 19.2 H, RBC 4.26 L, Hgb 12.5 L, Hct 39.6 L, MCV 93.0, MCH 29.3, MCHC 31.6 L, RDW Std Deviation 45.9 H, RDW Coeff of Adrian 13.5, Plt Count 168, MPV 13.7 H, Immature Gran % (Auto) 0.700, Neut % (Auto) 80.9 H, Lymph % (Auto) 10.1 L, Harford % (Auto) 7.7, Eos % (Auto) 0.4, Baso % (Auto) 0.2, Absolute Neuts (auto) 15.5 H, Absolute Lymphs (auto) 1.93, Nucleated RBC % 0.1, PT 16.1 H , INR 1.3, APTT 112.9 H*, Sodium 135, Potassium 4.4, Chloride 98, Carbon Dioxide 18.3 L, Anion Gap 19 H, BUN 45 H, Creatinine 3.10 H, Est GFR (MDRD) Non-Af 20 L, BUN/Creatinine Ratio 14.4, Glucose 328 H, Hemoglobin A1c 7.0 H, Calcium 9.5, T roponin T High Sens 61 H* D 11/30/24 15:30: Activated Clotting Time 187 H 11/30/24 21:11: POC Glucose 167 H 12/01/24 04:05: WBC 14.6 H, RBC 3.68 L, Hgb 10.8 L, Hct 33.2 L, MCV 90.2, MCH 29.3, MCHC 32.5, RDW Std Deviation 45.8 H, RDW Coeff of Adrian 14.0, Plt Count 142 L, MPV 12.7 H, Sodium 134, Potassium 5.0, Chloride 100, Carbon Dioxide 20.3 L, Anion Gap 14, BUN 45 H, Creatinine 3.16 H, Estim Creat Clear Calc 23.23 L, Est GFR (MDRD) Non-Af 19 L, BUN/Creatinine Ratio 14.2, Glucose 157 H, Calcium 8.7, Total Bilirubin 1.07, AST 497 H, ALT 77 H, Alkaline Phosphatase 82, Total Protein 6.0, Albumin 3.7, Globulin 2.4, Albumin/Globulin Ratio 1.5 Cardiology Labs/Tests 11/30/24 15:25: WBC 19.2 H, RBC 4.26 L, Hgb 12.5 L, Hct 39.6 L, MCV 93.0, MCH 29.3, MCHC 31.6 L, Plt Count 168, MPV 13.7 H, Immature Gran % (Auto) 0.700, Neut % (Auto) 80.9 H, Lymph % (Auto) 10.1 L, Harford % (Auto) 7.7, Eos % (Auto) 0.4, Baso % (Auto) 0.2, Absolute Neuts (auto) 15.5 H, Nucleated RBC % 0.1, PT 16.1 H, INR 1.3, APTT 112.9 H*, Sodium 135, Potassium 4.4, Chloride 98, Carbon Dioxide 18.3 L, Anion Gap 19 H, BUN 45 H, Creatinine 3.10 H, Est GFR (MDRD) Non-Af 20 L, BUN/Creatinine Ratio 14.4, Glucose 328 H, Hemoglobin A1c 7.0 H, Calcium 9.5 12/01/24 04:05: WBC 14.6 H, RBC 3.68 L, Hgb 10.8 L, Hct 33.2 L, MCV 90.2, MCH 29.3, MCHC 32.5, Plt Count 142 L, MPV 12.7 H, Sodium 134, Potassium 5.0, Chloride 100, Carbon Dioxide 20.3 L, Anion Gap 14, BUN 45 H, Creatinine 3.16 H, Est GFR (MDRD) Non-Af 19 L, BUN/Creatinine Ratio 14.2, Glucose 157 H, Calcium 8.7, Total Bilirubin 1.07 Rhythm: EKG: ECHO: Stress Test: Cardiac Cath: PCI: CT Surgery: Holter monitor: EPS: PPM: CXR: Chest CT Scan: Radiography Diagnostic Testing: Radiology Impression Chest X-Ray 11/30/24 18:50 IMPRESSION: Cardiomegaly. No evidence of acute pulmonary disease. Reading Location: [facility] Physical Exam Const alert, oriented x3 and no apparent distress Constitutional Narrative: Elderly male, class II obesity, mildly fatigued appearing but otherwise sitting back comfortably in bed, conversing normally, in no acute distress. General Appearance: cooperative and comfortable HEENT normocephalic, head/scalp atraumatic, hearing grossly normal bilaterally, nasal mucous membranes and turbinates normal and moist oral mucous membranes Eyes PERRL, EOMs intact bilaterally and conjunctivae normal Neck full ROM Chest inspection of chest normal Resp normal respiratory effort, normal air movement, no use of accessory muscles and clear to auscultation bilaterally Resp Narrative: Breathing comfortably on room air at rest. Mildly diminished breath sounds in lung bases but otherwise no wheezing or crackles noted. Cardio regular rate, regular rhythm, no murmurs and peripheral pulses 2+ throughout GI normal to inspection, nondistended, normoactive bowel sounds, soft to palpation, non-tender and non-distended Back/Spine normal ROM Extremity normal to inspection, full ROM and no pedal edema Skin no rashes or lesions noted Psych mental status grossly normal Assessment & Plan Assessment/Plan (1) ST elevation (STEMI) myocardial infarction: PLAN: Emergent coronary angiography revealed subacute stent thrombosis of the proximal right coronary artery. Emergent percutaneous revascularization with balloon angioplasty to the previously deployed stent to the proximal RCA. Thrombus embolization to the right posterior lateral ventricular branch was treated with balloon angioplasty and placement of 2 drug-eluting stents. DEXTER-3 flow was restored. This morning he is doing well. He does have residual ST elevation present though. Will continue ticagrelor Continue aspirin Can be transferred to the progressive care unit (2) Essential hypertension: PLAN: Due to kidney dysfunction we will discontinue losartan and add amlodipine 5 mg a day. (3) Chronic kidney disease: PLAN: Will continue to monitor creatinine (4) Dyslipidemia: PLAN: High intensity statin with atorvastatin.
--- NOTE | 2024-12-01 09:48 | CRPHASE1_ITS ---
Patient Communication Patient Information Former Patient:: Phase I PHII Cardiac Rehab Discussed with Patient:: Yes Guide to Cardiac Rehab Given to Patient:: Yes Cardiac Rehab Facility Choice List Given to Patient:: Yes Communication to Cardiac Rehab Choice Program [facility] CR PHII:: Communication Given to CR Choice Program Other:: Communication Given to CR Piece Worker:: Jose Suárez Sessions:: 36 sessions - 3 days/wk, 12 weeks Post Discharge Choice Letter Given to Patient:: Yes Guide to Cardiac Rehab Given by ICU Staff Prior to Discharge:: Yes Phase I Charge:: Level I - Education Medical/Surgical History Medical History [place]:: Yes Angina:: Yes CAD:: Yes Congestive Heart Failure:: Yes Cardiomyopathy:: No Valve Disease/Replacement:: No Pulmonary:: No COPD:: Yes Asthma:: No MATTHEW:: No Diabetes:: Yes Diabetes Type II:: Yes Hypertension:: Yes Dyslipidemia:: Yes Arrhythmias:: No EPS:: No CVA/TIA: CEA:: No PE:: No DVT:: No PVD:: No PAD:: Yes Arthritis:: Yes GI:: No GERD:: No Cancer:: No Renal:: No Thyroid:: No Depression:: No Anxiety:: No Surgical History CABG: No PTCA:: Yes ICD:: No Pacemaker:: No Orthopedic:: No Cardiac Rehabilitation Info Program Information Cardiac Rehabilitation Program Information: Cardiac Rehab The cardiac rehab team at [facility] consists of highly skilled exercise physiologists, nurses, respiratory therapists and physicians working together with you. Our purpose is to help you have a full recovery and achieve the goals you set for yourself. Over the years many of our patients have returned to activities they assumed they would never do again! We can help restore your confidence and motivation to make lifestyle changes that can have a significant impact on your health and quality of life! We can help answer questions and concerns you may have about exercise, lifestyle, medications, diet, stress and anxiety which are common following a hospitalization. WE monitor ECG and vital signs during exercise and discuss your progress with you and report to your physician(s). Cardiac Rehab is proven to help reduce readmissions, improve functional capacity and lower recurrence of problems with your heart. Our Cardiac Rehab program is Certified by the [employer] Pulmonary [employer] (AACVPR) and Accredited by the [employer] through our [facility]. You can contact us at . We invite you to call us with your questions or to get started in our program. If you have other questions or concerns be sure to ask your physician/provider during your follow-up visit. WE look forward to seeing you!
--- NOTE | 2024-12-01 09:51 | CRPH1.INSTRU ---
General Education Discussed with Patient CAD and cardiac anatomy and function:: Patient communicates acknowledgment Explanation of diagnoses and procedures:: Patient communicates acknowledgment Sign/Symptoms of PA:: Patient communicates acknowledgment Antiplatelet therapy: Patient communicates acknowledgment Proper use of NTG-SL: Patient communicates acknowledgment Emergency procedures and activation of EMS: Patient communicates acknowledgment Compliance of all prescribed medications: Patient communicates acknowledgment Smoking Recommendations Recommendations Include:: Previous smoker; encourage continued cessation Dyslipidemia Recommendations Recommendations Include:: Lipid profile not available Overweight/Obesity Risk Factors Patient Overweight/Obesity Risk Factors Are:: Overweight = 26-29 Recommendations Recommendations Include:: Exercise 5-7 times/week Response Code Overweight/Obesity:: Patient communicates acknowledgment Hypertension Recommendations Recommendations Include:: Maintain BP <130/85 and Decrease/maintain normal body weight Response Code Hypertension:: Patient communicates acknowledgment Heart Disease Risk Factors Patient Heart Disease Risk Factors Are:: Previous cardiac event Recommendations Recommendations Include:: Educated family members of their risk Response Code Heart Disease Response Code:: Patient communicates acknowledgment Diabetes Risk Factors Patient Diabetes Risk Factors Are:: Elevated blood sugars Recommendations Recommendations Include:: Maintain fasting blood sugars 70-110 md/dL Response Code Diabetes:: Patient communicates acknowledgment Metabolic Syndrome Risk Factors Patient Metabolic Syndrome Risk Factors Are [3 of 5]:: Fasting blood sugar > 100 mg/dL, Waist circumference > 35 [female] or 40 [male] and Hypertension Recommendations Recommendations Include:: Patient is diabetic Response Code Metabolic Syndrome Response Code:: Patient communicates acknowledgment Sedentary Risk Factors Patient Sedentary Risk Factors Are:: Lack of regular exercise Recommendations Recommendations Include:: Benefits of regular exercise Response Code Sedentary Response Code:: Patient communicates acknowledgment Stress Recommendations Recommendations Include:: Identification of stressors, and assessment of coping skills and Stress management techniques Response Code Stress Response Code:: Patient communicates acknowledgment
[2024-12-01] MEDS: Magnesium Chloride 64 MG Delay Rel.Tablet 128 MG PO (09:59)
[2024-12-01] MEDS: Cholecalciferol (VIT D3) 25 MCG TABLET (1,000 UNITS) PO (09:59)
[2024-12-01] MEDS: TICAGRELOR 90 MG TABLET PO ×2 (09:59→20:59)
[2024-12-01] MEDS: Metoprolol(XL)Succ 25 MG Tablet PO (09:59)
--- NOTE | 2024-12-01 10:00 | EKG12_ITS ---
Test Reason : AM EKG Blood Pressure : */* mmHG Vent. Rate : 61 BPM Atrial Rate : 61 BPM P-R Int : 170 ms QRS Dur : 68 ms QT Int : 428 ms P-R-T Axes : 71 -16 94 degrees QTcB Int : 430 ms Critical Test Result: STEMI Sinus rhythm with Premature supraventricular complexes Inferior-posterior infarct ACUTE MD / STEMI Consider right ventricular involvement in acute inferior infarct Confirmed by NAOMIE PALOMO, PARVEZ ([id number]), sports editor MARÍA AMBROSIO ([id number]) on 12/01/2024 10:59:03 AM Referred By: Jose Suárez Confirmed By: PARVEZ AKBAR MD
--- NOTE | 2024-12-01 11:00 | CASEMGMT ---
ALEX SANTOS Assessment Face to Face with patient for initial transition planning/care coordination assessment. ALEX SANTOS introduced self and role at [facility], pt voices understanding. Pt is A&Ox4 and is resting comfortably in bed and is calm. Care providers, pharmacy, and demographics verified. Admitting dx: STEMI LACE Strata: 3 PCP: Victor M Luke Specialists: Isacc MONCADA Pulmiladis Brown Preferred Pharmacy: [facility] Insurance: MCR A/B, MMO Prescription Benefit: Yes LNOK: Jnenie Rico (W), Shannon Miranda(Daughter) Living Arrangements: Pt lives with his in a single story home with a flat entrance ADLs/IADLs: Pt states that he is indep and denies concerns or needs. Current 6-Click score is 20. Denies PT eval needs. Transportation: Self, . Denies concerns at this time DME: Pt states that he has a CPAP @ home supplied through [employer] but does not have any additional oxygen. Pt is currently requiring additional oxygen and may qualify for home oxygen use. Pt denies wanting a list of local in-network DME companies. Pt prefers [employer].?Dr Danielson states that the pt may DC tomorrow. Green sheet placed on the chart to facilitate weekend DC. Pt also states that he has a BGM with sufficient supplies including lancets, test strips, and EtOH swabs. Pt also reports that he has a FWW, Cane, and pulse ox. HHC/SNF: Reports hx @ [facility]. States HHC history x 2 years ago but cannot recall the name of the agency. Pt denies the current need for either. Pt?s goal: Home Plan: Home with support through the pt's and 2 daughters that live close. Follow for oxygen needs and anticaog rx. Pt states that he feels safe returning home tomorrow and denies the need for HH, OP Tx, or SNF. Pt denies further questions or concerns at this time. CM to follow. Michael Euceda RN, CM
--- NOTE | 2024-12-01 14:38 | CHAPLAIN ---
Type of Pastoral Visit ___ Initial Visit _x__ Follow-up Visit ___ On-call Visit ___ General Patient Visit ___ Spiritual Assessment ___ Family Conference ___ Bereavement ___ Rapid Response ___ Code Blue ___ Other (describe below) Pastoral Care Referral From _x__ Patient ___ Family ___ Nurse ___ Physician ___ Metallurgical Specialist ___ Recreation Attendant Supervisor ___ Other (describe below) Sacrament/Intervention _x__ Active listening ___ Anointing ___ Latter-Day ___ Bereavement ___ Communion ___ Nicole exploration ___ ___ Life review ___ Prayer ___ Reconciliation ___ Sacrament of Sick _x__ Supportive presence ___ Wedding ___ Other (describe below) Pastoral Comments family members were assisted yesterday as this patient had a cath and stents; follow up to pt who reports on his status and physical results; pt hopes to be discharged tomorrow and to attend a wedding of grandson, however he knows this could be an issue for him; spouse is with him; pt reports good support and good outlook
[2024-12-01] MEDS: HYDROcodone Bitartrate/Apap 5/325 Tablet PO (17:04)
[2024-12-01 18:36] LABS: Hematocrit 32.7 % (40-54); Hemoglobin 10.6 g/dL (13.0-16.5)
--- NOTE | 2024-12-01 18:59 | EKG12_ITS ---
Test Reason : PCI Blood Pressure : */* mmHG Vent. Rate : 66 BPM Atrial Rate : 66 BPM P-R Int : 192 ms QRS Dur : 84 ms QT Int : 418 ms P-R-T Axes : 70 -21 -17 degrees QTcB Int : 438 ms Normal sinus rhythm Low voltage QRS Inferior infarct recent Abnormal ECG Confirmed by NAOMIE PALOMO, PARVEZ ([id number]), sports editor MARÍA AMBROSIO ([id number]) on 12/04/2024 8:31:01 AM Referred By: Jose Suárez Confirmed By: PARVEZ AKBAR MD
--- NOTE | 2024-12-01 19:30 | CT_ITS ---
PROCEDURE: STROKE BRAIN/HEAD WITHOUT CONT 12/01/2024 REASON FOR EXAM: STROKE ALERT TECHNIQUE: STROKE BRAIN/HEAD WITHOUT CONT Coronal and Sagittal reconstruction series were provided. One or more dose reduction techniques were used (e.g., Automated exposure control, adjustment of the mA and/or kV according to patient size, use of iterative reconstruction technique. RADIATION DOSE SUMMARY: CTDlvol: 44.99 mGy DLP: 880.47 mGycm COMPARISON: Brain/Head without Contrast - 6:17 PM FINDINGS: BRAIN: No acute intraparenchymal hemorrhage. No mass lesion. No CT evidence for acute territorial infarct. No midline shift or extra-axial collection. Diffuse cerebral volume loss, age-appropriate. Patchy periventricular white matter low attenuation, likely microvascular ischemic changes. VENTRICLES: No hydrocephalus. ORBITS: The orbits are unremarkable. SINUSES AND MASTOIDS: The paranasal sinuses and right mastoid air cells are clear. Small left mastoid effusion, minimally increased since the prior study. SOFT TISSUES: No acute abnormality seen. BONES: No acute osseous abnormality seen. OTHER: Calcified carotid siphons and vertebral arteries. CT/STROKE Brain/Head without Cont IMPRESSION: 1. No acute intracranial abnormality. 2. Age-related senescent changes. Reading Location: [id number]
--- NOTE | 2024-12-01 20:21 | PCM.HOSP.N ---
Hospitalist Note Stroke alert called around 7 PM. Last known well 6:55 PM. Patient reported to SIGNAL TECHNICIAN that he had left facial numbness and left leg weakness. Nurse confirmed left leg weakness worse than right as well as left-sided sensation changes, so stroke alert was called. I saw the patient at bedside a few minutes later. He was normotensive and otherwise hemodynamically stable. He was sitting back in bed and conversing normally with me. Stated that he has had several TIAs in the past and has had similar symptoms with these TIAs including left leg weakness and left facial numbness/tingling. Was evaluated by teleneurology and imaging after CT brain was done. CT brain was unremarkable. Neurology evaluated the patient and given his recent STEMI yesterday with left heart cath procedure, patient is not a candidate for TNK. Also noted that symptoms are not debilitating so would not recommend TNK regardless. Recommended obtaining MRI brain and MRA head/neck given that CTA cannot be obtained due to kidney function. MRI orders placed. Other orders placed per stroke protocol order set. Will continue to monitor the patient closely.
[2024-12-01] MEDS: MELATONIN 3 MG TABLET PO (20:59)
[2024-12-02] VITALS (9 sets, daily range): BP systolic 104–155; BP diastolic 69–78; PULSE 62–81; RESP 12–20; TEMP 36.6–37.1; O2SAT 94–99; BMI 35.6
[2024-12-02 08:17] LABS: Hematocrit 32.1 % (40-54); Hemoglobin 10.4 g/dL (13.0-16.5); Immature Granulocytes Count 0.080 X10^3/uL (0.0-0.0); Mean Corp Hgb Conc 32.4 g/dL (32-36); Mean Corpuscular Volume 91.2 fL (80-94); Mean Platelet Vol. 13.1 fl (6.2-12.0); NRBC Flagged by Analyzer 0 % (0-5); Platelet Count 113 K/mm3 (150-450); RBC Distribution Width CV 14.4 % (11.6-14.6); RBC Distribution Width SD 47.4 fl (35.1-43.9); Red Blood Count 3.52 M/mm3 (4.6-6.2); White Blood Count 11.2 K/mm3 (4.4-11.0)
[2024-12-02 08:54] LABS: Anion Gap 14 (5-15); BUN 50 mg/dL (4-19); BUN/Creat Ratio 17.2 RATIO (10-20); Calcium,Total 9.3 mg/dL (7.6-11.0); Carbon Dioxide 20.6 mmol/L (21.0-32.0); Chloride 99 mmol/L (98-108); Estimated Creatinine Clearance 24.95 ml/min (50-250); Glucose 138 mg/dL (70-99); Potassium 4.8 mmol/L (3.3-5.1)
--- NOTE | 2024-12-02 09:00 | MRI_ITS ---
PROCEDURE: MRA NECK WITHOUT CONTRAST 12/02/2024 REASON FOR EXAM: EVAL FOR CVA/TIA COMPARISON: CTA Head AND Neck W/Con - 17-Sep-2022 9:12 PM TECHNIQUE: MRA NECK WITHOUT CONTRAST FINDINGS: Flow: 2D Time of Flight images demonstrate antegrade carotid and vertebral artery flow. Carotids: No evidence of significant stenosis on time of flight imaging. Limited noncontrast exam. Right ICA stenosis (NASCET): 0 % Left ICA stenosis (NASCET): 0 % Vertebrals: Right vertebral artery is dominant. No high grade stenosis identified. No arterial occlusion, significant stenosis, aneurysm or dissection. MRI/MRA Neck without Contrast IMPRESSION: NO EVIDENCE OF SIGNIFICANT CAROTID OR VERTEBRAL ARTERY STENOSIS ON NECK MRA. Reading Location: [id number]
--- NOTE | 2024-12-02 09:00 | MRI_ITS ---
PROCEDURE: MRA HEAD ONLY WITHOUT CONTRAST 12/02/2024 REASON FOR EXAM: EVAL FOR CVA/TIA. Left-sided weakness/numbness. TECHNIQUE: MRA HEAD ONLY WITHOUT CONTRAST Multiplanar multisequential imaging was performed without IV contrast administration. FINDINGS: INTERNAL CAROTID ARTERIES No significant stenosis. No occlusion. No aneurysm. ANTERIOR CEREBRAL ARTERIES No significant stenosis. No occlusion. No aneurysm. Aplastic left A1 segment. Widely patent anterior communicating artery. MIDDLE CEREBRAL ARTERIES No significant stenosis. No occlusion. No aneurysm. POSTERIOR CEREBRAL ARTERIES No significant stenosis. No occlusion. No aneurysm. Hypoplastic left P1 segment. Widely patent left posterior communicating artery. BASILAR ARTERY No significant stenosis. No occlusion. No aneurysm. VERTEBRAL ARTERIES No significant stenosis. No dissection or occlusion. MRI/MRA Head ONLY without Contrast IMPRESSION: No arterial occlusion or significant stenosis in the head. No evidence of aneu rysm. Reading Location: [id number]
--- NOTE | 2024-12-02 09:00 | MRI_ITS ---
PROCEDURE: BRAIN WITHOUT CONTRAST 12/02/2024 REASON FOR EXAM: EVAL FOR CVA/TIA TECHNIQUE: BRAIN WITHOUT CONTRAST Multiplanar and multisequence images were obtained. COMPARISON: Reviewed FINDINGS: Negative diffusion trace images. No hemorrhagic products. Brain: Moderate cerebral atrophy and chronic periventricular white matter disease. Ventricles: Consistent with the overall degree of cerebral atrophy. Sinuses: Minimal mucosal thickening. Mastoids: Clear. MRI/Brain without Contrast IMPRESSION: No acute brain MR process. Angiography examinations separately dictated. Reading Location: [facility]
--- NOTE | 2024-12-02 09:33 | EKG12_ITS ---
Test Reason : CP Blood Pressure : */* mmHG Vent. Rate : 77 BPM Atrial Rate : 77 BPM P-R Int : 210 ms QRS Dur : 72 ms QT Int : 378 ms P-R-T Axes : 75 -35 -13 degrees QTcB Int : 427 ms Critical Test Result: STEMI Sinus rhythm with 1st degree A-V block Left axis deviation Low voltage QRS Inferior infarct subacute ACUTE IL / STEMI Consider right ventricular involvement in acute inferior infarct Confirmed by NAOMIE PALOMO, PARVEZ ([id number]), metropolitan editor MARÍA AMBROSIO ([id number]) on 12/04/2024 8:30:39 AM Referred By: Jose Suárez Confirmed By: PARVEZ AKBAR MD
[2024-12-02] MEDS: TICAGRELOR 90 MG TABLET PO (09:59)
[2024-12-02] MEDS: Magnesium Chloride 64 MG Delay Rel.Tablet 128 MG PO (09:59)
[2024-12-02] MEDS: Metoprolol(XL)Succ 25 MG Tablet PO (10:00)
[2024-12-02] MEDS: Cholecalciferol (VIT D3) 25 MCG TABLET (1,000 UNITS) PO (11:24)
--- NOTE | 2024-12-02 12:07 | CON.PCM.NE_ITS ---
Assessment and Plan: Neuro Assessment/Plan GERRY GARCIA is a 79 M with cv risk factors and multiple prior admissions with left sided weakness with neg workup and there has been concern for conversion/functional/stress induced who presents for STEMI. After cath procedure he complained of left sided weakness and stroke alert was called. No lytics due to unclear lkw, multiple prior neg episodes and recent procedure. MRA neg. MRI brain shows a questionable dwi lesion in post right parietal lobe which is super small and questionable and would not explain his symptoms. If truly there likely perioperative. His left sided weakness more likley to conversion/functional/stress reaction. Diagnosis: - Stress induced reaction Plan: - Cont asa, brillinta and statin per cards. Cont cv risk factor optimization. No further recs. Please reachout for any questions or concerns. Stroke to sign off. HPI Consult Data Date of Consult: 12/02/24 HPI Narrative HPI Narrative: GERRY GARCIA, is a 79 M with ckd, cv risk factors, TIAs?, concern for conversion disorder and cad who presented with chest pain. He apparently had a cath last week and found to have cad and underwent angioplasty. He came in 12/01/24 with chest pain and foudn to have a stemi and went for cath and found that artery had blocked off again and had to get stented. After wards he was doing okay but at some point he stated that his left side felt weak and numb but unclear when exactly it started after his cath. Stroke alert was called and NIH was 4 mostly for left leg weakness and numbness. No tnk as unclear lkw and recent procedure. CTH neg. No cta as low concern for lvo and beverly. He states that this has happened many times before. I reviewed his records and he has had these episodes of left sided weakness since 2019 from what I see. He has been thoroughly evaluated with multiple mris which were neg, spine mris and emg which were unrevealing. There was concern that these episodes with conversion/functional/stress induced. His MRAs are neg. His MRI does show a questionable incidental very very small incidental dwi lesion in the posterior right parietal lobe which would not cause patient symptoms. It is not in motor or sensory gyrus. Again very questionable that radiology may not call. If there is periopertive from cath procedure. Cont asa, brillinta and statin per cards. Cont cv risk factor optimization. No further recs. Please reachout for any questions or concerns. Stroke to sign off. [facility] Medical History (Updated 12/01/24 @ 09:[address] Nickie Danielson, DO) Anemia Diabetes mellitus Chronic kidney disease Shortness of breath Unstable angina Fatigue Syncope Left-sided weakness History of COVID-19 Presence of stent in coronary artery (~08/31/22) Dyslipidemia Coronary artery disease Angina pectoris Abnormal PFT Chest heaviness Palpitations DEAN (dyspnea on exertion) Dizziness Leg pain Cough Exposure to COVID-19 virus Nonhealing nonsurgical wound with fat layer exposed Laceration without foreign body of scalp, subsequent encounter Acute left-sided weakness Essential hypertension CHF (congestive heart failure) History of melanoma Obesity (BMI 35.0-39.9 without comorbidity) CAD (coronary artery disease) 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.9) COPD (chronic obstructive pulmonary disease) TIA (transient ischemic attack) Obstructive sleep apnea Chronic kidney disease, stage 3 Atherosclerotic heart disease [place] coronary artery w/angina pectoris Type 2 diabetes mellitus without complications Hyperlipidemia Obesity Home Medications ?Medication ?Instructions ?Recorded ?Last Taken ?Type aspirin 81 mg tablet,delayed 81 mg PO DAILY@0800 healt h 01/21/17 10/11/23 History release maintenance mirtazapine 15 mg tablet (Remeron) 15 mg PO QHS sleep 09/21/18 10/11/23 History cyanocobalamin (vitamin B-12) 1,000 mcg PO DAILY vitam in ##0 06/01/19 10/11/23 History 1,000 mcg capsule magnesium oxide 400 mg (241.3 mg 800 mg PO DAILY SUPPL EMENT 08/01/21 10/11/23 History magnesium) tablet cetirizine 10 mg tablet 10 mg PO DAILY PRN Allergic 09/16/21 10/11/23 History Reaction cholecalciferol (vitamin D3) [address] 10/11/23 History mcg (1,000 unit) tablet fluoxetine 40 mg capsule 80 mg PO DAILY DEPRESSION 90 days 09/16/21 10/11/23 History #180 caps acetaminophen 325 mg tablet 650 mg PO Q6H PRN Pain 1-1 10/12/23 Unknown History glimepiride 4 mg tablet 4 mg PO QDAY diabetes Unknown History atorvastatin 40 mg tablet 40 mg PO QHS CHOLESTEROL #90 tabs 06/14/24 Unknown Rx clopidogrel 75 mg tablet [address] #90 tabs 0 06/14/24 Unknown Rx losartan 100 mg tablet 100 mg PO DAILY blood pressu re #90 06/14/24 Unknown Rx Held on 11/30/24. tabs Instructions: hold per patient nitroglycerin 0.4 mg sublingual 0.4 mg sublingual Q5-1 5M PRN CHEST 06/14/24 Unknown Rx tablet PAIN #25 tabs pantoprazole 40 mg tablet,delayed 40 mg PO DAILY GERD #90 tabs 06/14/24 Unknown Rx release potassium chloride 20 mEq 60 meq (3 x 20 mEq) PO BID 0 06/14/24 Unknown Rx tablet,extended release(part/cryst) supplement #180 ta bs spironolactone 50 mg tablet 50 mg PO DAILY diuretic #9 0 tabs 06/14/24 Unknown Rx amlodipine 5 mg tablet 5 mg PO QPM blood pressure 0 10/25/24 Unknown History isosorbide mononitrate 60 mg 60 mg PO BID heart #90 TA BLETS 10/25/24 Unknown Rx tablet,extended release 24 hr metformin 500 mg tablet 500 mg PO QDAY diabetes 10/02 09/24 Unknown History Held on 11/27/24. Instructions: Resume on 11/30/24. metolazone 2.5 mg tablet 2.5 mg PO QDAY diuretic 10/02 09/24 Unknown History metoprolol succinate 25 mg 25 mg PO DAILY blood pressu re #30 10/25/24 Unknown Rx tablet,extended release 24 hr tabs hydrocodone-acetaminophen 5-325mg 1 tab PO TID PRN jennifer n 11/22/24 11/27/24 History 5mg-325mg furosemide 80 mg tablet 80 mg PO DAILY #30 tabs 11/01 12/25 Unknown Rx Allergy/AdvReac Type Severity Reaction Status Date / Time No Known Allergies Allergy Verified 11/26/24 17:43 Family History Father Parkinsons disease Prostate cancer Mother Osteoporosis Surgical History Presence of coronary angioplasty implant and graft (11/27/24) History of tympanostomy tube placement History of percutaneous transluminal coronary angioplasty (08/18/18) History of herniorrhaphy Hx of cholecystectomy History of tonsillectomy History of prostatectomy Social History household members: spouse and none Smoking Status: Former smoker quit date: 05/03/98 pack-years: 50 how long ago did patient quit smokin years ago alcohol intake: never substance use type: does not use caffeine: Yes Type: coffee and tea Number of servings: 6 Vital Signs Vital Signs Vital Signs: 12/01/24 12:12 12/01/24 14:00 12/01/24 15:00 Temperature 97.0 F L Temperature Source Oral Pulse Rate 77 74 Pulse Strength Respiratory Rate 18 Respiratory Effort Non-Labored Short of Breath Respiratory Depth Normal Respiratory Pattern Normal Blood Pressure 101/69 Blood Pressure Mean 79 Blood Pressure Source Monitor Blood Pressure Position Semi-Fowlers Blood Pressure Location Left Arm Pulse Ox 99 Oxygen Delivery Method Room Air Nasal Cannula Oxygen Flow Rate (L/min) 2 12/01/24 17:10 12/01/24 19:20 12/01/24 19:30 Temperature 97.0 F L Temperature Source Temporal Pulse Rate 65 81 76 Pulse Strength Respiratory Rate 20 H 18 18 Respiratory Effort Respiratory Depth Respiratory Pattern Blood Pressure 104/66 120/77 136/82 H Blood Pressure Mean 78 91 100 Blood Pressure Source Monitor Blood Pressure Position Semi-Fowlers Blood Pressure Location Left Arm Pulse Ox 97 98 96 Oxygen Delivery Method Nasal Cannula Nasal Cannula Nasal Cannula Oxygen Flow Rate (L/min) 2 3 2 12/01/24 19:45 12/01/24 20:00 12/01/24 20:15 Temperature Temperature Source Pulse Rate 75 68 72 Pulse Strength Respiratory Rate 17 16 16 Respiratory Effort Respiratory Depth Respiratory Pattern Blood Pressure 122/77 H 109/71 117/71 Blood Pressure Mean 92 83 86 Blood Pressure Source Blood Pressure Position Blood Pressure Location Pulse Ox 96 98 98 Oxygen Delivery Method Nasal Cannula Nasal Cannula Nasal Cannula Oxygen Flow Rate (L/min) 2 2 2 12/01/24 20:35 12/01/24 20:35 12/01/24 20:35 Temperature 98 F Temperature Source Oral Pulse Rate 75 Pulse Strength Normal (2+) Respiratory Rate 18 Respiratory Effort Non-Labored Respiratory Depth Normal Respiratory Pattern Normal Blood Pressure 112/76 Blood Pressure Mean 88 Blood Pressure Source Monitor Blood Pressure Position Semi-Fowlers Blood Pressure Location Right Arm Pulse Ox 98 Oxygen Delivery Method Nasal Cannula Nasal Cannula Oxygen Flow Rate (L/min) 3 2 12/02/24 00:09 12/02/24 00:09 12/02/24 00:31 Temperature 98.0 F Temperature Source Oral Pulse Rate 62 69 Pulse Strength Respiratory Rate 19 H 18 Respiratory Effort Respiratory Depth Respiratory Pattern Blood Pressure 108/73 Blood Pressure Mean 84 Blood Pressure Source Monitor Blood Pressure Position Semi-Fowlers Blood Pressure Location Left Arm Pulse Ox 94 94 98 Oxygen Delivery Method Bi-pap CPAP Oxygen Flow Rate (L/min) 2 12/02/24 03:00 12/02/24 04:30 12/02/24 09:35 Temperature 98.5 F 98.5 F Temperature Source Oral Oral Pulse Rate 67 81 Pulse Strength Respiratory Rate 18 20 H Respiratory Effort Non-Labored Respiratory Depth Normal Respiratory Pattern Normal Blood Pressure 108/77 121/78 H Blood Pressure Mean 87 92 Blood Pressure Source Monitor Monitor Blood Pressure Position Semi-Fowlers Semi-Fowlers Blood Pressure Location Left Arm Left Arm Pulse Ox 98 99 Oxygen Delivery Method Nasal Cannula CPAP Nasal Cannula Oxygen Flow Rate (L/min) 2 3 12/02/24 10:00 12/02/24 10:00 12/02/24 10:00 Temperature 97.8 F Temperature Source Oral Pulse Rate 77 77 Pulse Strength Normal (2+) Respiratory Rate 18 Respiratory Effort Respiratory Depth Respiratory Pattern Blood Pressure 104/69 104/77 Blood Pressure Mean 86 Blood Pressure Source Monitor Blood Pressure Position Supine Blood Pressure Location Left Arm Pulse Ox 99 Oxygen Delivery Method Nasal Cannula Oxygen Flow Rate (L/min) 3 Weight Weight: 109.7 kg Body Mass Index (BMI) 35.6 EEG Results Procedure Details EEG Procedure Details: GERRY GARCIA is a 79 year old M with a past medical history of , who presents for evaluation of Electroencephalogram on DATE at TIME Physical Exam Narrative Physical Exam: - General: NAD, pleasant, cooperative, well nourished, well developed - Head/Eyes: Atraumatic, normocephalic, clear cornea, normal sclera/conjunctive - Neuro: ? Mental Status: AAOX4 & following simple commands. ? Speech: Clear and fluent with good repetition, comprehension, & naming. No aphasia or dysarthria ? CN II: Visual kim are full to confrontation. ? CN III, IV, : EOMI, no gaze preference, no nystagmus, no ptosis ? CN V: Facial sensation is intact to light touch throughout. ? CN VII: Face is symmetric with normal eye closure and smile. ? CN VII: Hearing is grossly normal to conversational speech. ? Motor: Left leg drift to bed, mild left arm drift ? Sensation: Left side numbness ? Coordination: Normal FTN & HTS. No abn movements seen. Lab / Micro Data 12/02/24 07:19 12/02/24 07:19 Labs: Laboratory Results - last 24 hr 12/01/24 17:01: POC Glucose 153 H 12/01/24 18:21: Hgb 10.6 L, Hct 32.7 L 12/01/24 19:23: POC Glucose 203 H 12/01/24 20:58: POC Glucose 148 H 12/02/24 06:28: POC Glucose 129 H 12/02/24 07:19: WBC 11.2 H, RBC 3.52 L, Hgb 10.4 L, Hct 32.1 L, MCV 91.2, MCH 29.5, MCHC 32.4, RDW Std Deviation 47.4 H, RDW Coeff of Adrian 14.4, Plt Count 113 L, MPV 13.1 H, Immature Gran % (Auto) 0.700, Neut % (Auto) 78.9 H, Lymph % (Auto) 7.6 L, [place] % (Auto) 12.0 H, Eos % (Auto) 0.7, Baso % (Auto) 0.1, A bsolute Neuts (auto) 8.8 H, Absolute Lymphs (auto) 0.85, Nucleated RBC % 0, Sodium 133, Potassium 4.8, Chloride 99, Carbon Dioxide 20.6 L, Anion Gap 14, BUN 50 H, Creatinine 2.93 H, Estim Creat Clear Calc 24.95 L, Est GFR (MDRD) Non-Af 21 L, BUN/Creatinine Ratio 17.2, Glucose 138 H, Calcium 9.3 Imaging Radiology Impression Echocardiogram 12/01/24 07:00 Interpretation Summary Normal left ventricular size. Mild left ventricular hypertrophy. Mildly reduced LVEF with estimated ejection fraction of 50%. There is basal to mid lateral wall akinesis. There is basal inferoseptal hypokinesis. There is basal inferior hypokinesis. Grade 1 diastolic dysfunction. Mildly increased right ventricular size. Preserved function. No hemodynamically significant valvular heart disease. Small anterior pericardial effusion with no hemodynamic significance. Epicardial fat. Ordering Physician: Jose Suárez Referring Physician: Victor M Luke Performed By: Treva Black, RDCS, RVT Brain CT 12/01/24 19:30 IMPRESSION: 1. No acute intracranial abnormality. 2. Age-related senescent changes. Reading Location: [facility] Active Medications Active Medications Active Medications: Current Medications Generic Name Dose Route Start Last Admin Trade Name Freq PRN Reason Stop Dose Admin Acetaminophen 650 mg 11/30/24 16:57 12/01/24 21:00 Acetaminophen 325 Mg Tablet PO 650 mg Q6H PRN Administration Pain 1-10/10 Hydrocodone Bitart/Acetaminophen 1 tablet 11/30/24 16:57 12/01/24 17:04 Hydrocodone Bitartrate/Apap 5/325 Tablet PO 1 tablet TID PRN Administration pain Albuterol Sulfate 2.5 mg 11/30/24 17:20 Albuterol 2.5 Mg/3 Ml Vial.Neb. INHALATION Q4H PRN SHORTNESS OF BREATH Alprazolam 0.5 mg 12/02/24 08:00 12/02/24 10:00 Alprazolam 0.5 Mg Tablet PO 0.5 mg X1 PRN Administration 30 min prior to MRI Aspirin 81 mg 12/01/24 08:00 12/02/24 10:00 Aspirin 81 Mg Tab.Chew PO 81 mg BREAKFAST SHARON Administration Atorvastatin Calcium 40 mg 11/30/24 22:00 12/01/24 20:59 Atorvastatin Calcium 40 Mg Tablet PO 40 mg QHS SHARON Administration Atropine Sulfate 0.5 mg 11/30/24 16:51 Atropine Sulfate 1 Mg/10 Ml Syringe IV UD PRN HR <50 bpm Cholecalciferol 25 mcg 12/01/24 10:00 12/02/24 11:24 Cholecalciferol (Vit D3) 25 Mcg Tablet (1,000 Units) PO 25 mcg DAILY SHARON Administration Cyanocobalamin 1,000 mcg 12/01/24 10:00 12/02/24 09:59 Cyanocobalamin 500 Mcg Tablet PO 1,000 mcg DAILY SHARON Administration Fluoxetine HCl 80 mg 12/01/24 10:00 12/02/24 10:01 Fluoxetine Hcl 40 Mg Capsule PO 80 mg DAILY SHARON Administration Furosemide 80 mg 12/01/24 10:00 Furosemide 80 Mg Tablet PO DAILY SHARON Protocol Glucagon 1 mg 11/30/24 17:07 Glucagon 1 Mg/Ml Syringe IM X1 PRN Hypoglycemia Protocol Hydralazine HCl 5 mg 12/01/24 20:19 Hydralazine 20 Mg/Ml Vial IV 12/02/24 20:19 Q30M PRN maintain BP parameters with HR <60 Dextrose 250 mls @ 0 mls/hr 11/30/24 17:07 Dextrose 10%-Water IV .Q0M PRN HYPOGLYCEMIA Protocol As Directed Sodium Chloride 250 mls @ 15 mls/hr 11/30/24 17:25 IV .[id number] PRN Saline Flush Sodium Chloride 250 mls @ 15 mls/hr 11/30/24 17:25 IV .[id number] PRN Additional IVPB Infusion Insulin Human Lispro 0 unit 11/30/24 22:00 12/02/24 06:30 Insulin Lispro 100 Unit/Ml Insuln.Pen SC Not Given ACHS [facility] Protocol Labetalol HCl 10 - 20 mg 12/01/24 20:19 Labetalol 20 Mg/4 Ml Vial IV 12/02/24 20:19 Q10M PRN PRN maintain BP parameters with HR >/=60 Loratadine 10 mg 12/02/24 10:00 Loratadine 10 Mg Tablet PO Q48 PRN ALLERGIES Magnesium Chloride 128 mg 12/01/24 10:00 12/02/24 09:59 Magnesium Chloride 64 Mg Delay Rel.Tablet PO 128 mg DAILY SHARON Administration Melatonin 3 mg 11/30/24 17:08 12/01/24 20:59 Melatonin 3 Mg Tablet PO 3 mg QHS PRN PRN Administration INSOMNIA Metolazone 2.5 mg 12/01/24 10:00 Metolazone 2.5 Mg Tablet PO DAILY [facility] Protocol Metoprolol Succinate 25 mg 12/01/24 10:00 12/02/24 10:00 Metoprolol(Xl)Succ 25 Mg Tablet PO 25 mg DAILY SHARON Administration Protocol Mirtazapine 15 mg 11/30/24 22:00 12/01/24 20:59 Mirtazapine 15 Mg Tablet PO 15 mg QHS SHARON Administration Nitroglycerin 0.4 mg 11/30/24 17:31 Nitroglycerin (Inpatient Use) 0.4 Mg Tab.Subl SL Q5M PRN CARDIAC/CHEST PAIN Nutritional Formula (Lactose Free) 120 ml 12/02/24 12:00 Glucerna Shake 120 Ml Liquid PO TIDCM SHARON Ondansetron HCl 4 mg 11/30/24 17:08 12/01/24 08:34 Ondansetron 4 Mg/2 Ml Vial IV 4 mg Q8H PRN PRN Administration NAUSEA/VOMITING Pantoprazole Sodium 40 mg 12/01/24 10:00 12/02/24 09:59 Pantoprazole Sodium 40 Mg Tablet PO 40 mg DAILY SHARON Administration Sodium Chloride 500 ml 11/30/24 16:51 0.9% Normal Saline 500 Ml Iv.Soln. IV BOLUS PRN VASO-VAGAL PROTOCOL Sodium Chloride 10 - 40 ml 11/30/24 17:25 11/30/24 19:52 0.9% Saline Lock 10 Ml Syringe IV 10 ml UD PRN Administration SALINE FLUSH Ticagrelor 90 mg 11/30/24 22:00 12/02/24 09:59 Ticagrelor 90 Mg Tablet PO 90 mg BID SHARON Administration NIHSS NIHSS Nursing Documentation NIHSS Nursing Documentation: NIHSS: Ischemic Stroke/TIA Start: 12/01/24 20:19 Text: For ICU Patients: NIH sroke scale at Status: Complete presentation and every 2 hours or with change in RN caregiver Freq: [id number] Protocol: Activity Type Activity Date Activity User E-sign Co-sign Detail Recorded Client Recorded Date Recorded By Document 12/01/24 20:15 CD [id number] 12/01/24 20:28 CD 12/01/24 20:15 NIH Stroke Scale [NIHSS] A score of 0 is normal or asymptomatic . Total possible score is 42. Inpatient: RN or Physician to activate a stroke alert for onset of new stroke symptoms or with NIHSS increase >/= 3 points. Following change in neurological status, NIHSS will be performed per physician order or more frequently PRN. -1a. Level of Consciousness 0 - Alert; keenly responsive -1b. LOC Questions 0 - Answers BOTH questions correctly -1c. LOC Commands 0 - Performs BOTH tasks correctly -2. Best Gaze 0 - Normal -3. Visual 0 - No visual loss -4. Facial Palsy 0 - Normal symmetrical movements -5a. Left Arm 0 - No drift; arm holds 90 ( or 45) degrees for full 10 seconds -5b. Right Arm 0 - No drift; arm holds 90 ( or 45) degrees for full 10 seconds -6a. Left Leg 3 - No effort against gravity ; leg falls to bed immediately -6b. Right Leg 0 - No drift; leg holds 30- degree position for full 5 seconds -7. Limb Ataxia 1 - Present in 1 limb -8. Sensory 1 - Mild-to- moderate sensory loss; -9. Best Language 0 - No aphasia; normal -10. Dysarthria 0 - Normal -11. Extinction and Inattention 0 - No abnormality -Total 5 Query Text:A score of 0 is normal or asymptomatic. Total possible score is 42 . ED: Notify Physician for NIHSS increase by > / = 3 points. Inpatient: RN or Physician to activate a stroke alert for NIHSS increase of > / = 3 points. Coma Scale [Assess] -Eye Opening Spontaneous -Motor Obeys Commands -Verbal Oriented [Total] -Coma Scale Total 15 NIHSS: Ischemic Stroke/TIA Start: 12/01/24 20:19 Text: For PCU Patients: NIH and Neuro Check every 4 Status: Active hours, PRN and with change in RN caregiver. Freq: [id number] Protocol: Activity Type Activity Date Activity User E-sign Co-sign Detail Recorded Client Recorded Date Recorded By Document 12/02/24 10:00 MATTHIASIKA [id number] 12/02/24 10:20 TSTIKA 12/02/24 10:00 NIH Stroke Scale [NIHSS] A score of 0 is normal or asymptomatic . Total possible score is 42. Inpatient: RN or Physician to activate a stroke alert for onset of new stroke symptoms or with NIHSS increase >/= 3 points. Following change in neurological status, NIHSS will be performed per physician order or more frequently PRN. -1a. Level of Consciousness 0 - Alert; keenly responsive -1b. LOC Questions 0 - Answers BOTH questions correctly -1c. LOC Commands 0 - Performs BOTH tasks correctly -2. Best Gaze 0 - Normal -3. Visual 0 - No visual loss -4. Facial Palsy 0 - Normal symmetrical movements -5a. Left Arm 0 - No drift; arm holds 90 ( or 45) degrees for full 10 seconds -5b. Right Arm 0 - No drift; arm holds 90 ( or 45) degrees for full 10 seconds -6a. Left Leg 1 - Drift; leg falls by the end of 5- seconds, but does not hit bed -6b. Right Leg 0 - No drift; leg holds 30- degree position for full 5 seconds -7. Limb Ataxia 1 - Present in 1 limb -8. Sensory 1 - Mild-to- moderate sensory loss; -9. Best Language 0 - No aphasia; normal -10. Dysarthria 0 - Normal -11. Extinction and Inattention 0 - No abnormality -Total 3 Query Text:A score of 0 is normal or asymptomatic. Total possible score is 42 . ED: Notify Physician for NIHSS increase by > / = 3 points. Inpatient: RN or Physician to activate a stroke alert for NIHSS increase of > / = 3 points. Coma Scale [Assess] -Eye Opening Spontaneous -Motor Obeys Commands -Verbal Oriented [Total] -Coma Scale Total 15
--- NOTE | 2024-12-02 13:36 | PCM.DC.SUM ---
Providers Date of Admission: 11/30/24 Date of Discharge: 12/02/24 Primary Care Physician: Dr. Victor M Luke, Consultations 12/01/24 20:19 Consult: Tele-Neurology Routine Consulting Provider: [facility] Reason for Consult: Acute Ischemic Stroke/TIA EMERGENT Consult: No MD Notified: Yes Date Notified: 12/01/24 Time Notified: 21:22 Method of Notification: Answering Service Nursing Unit Staff Notify [facility] of Tele-Neurology Consult: Yes Reason For Visit: STEMI Diagnosis Discharge Diagnosis (1) ST elevation (STEMI) myocardial infarction: Status: Acute Code(s): I21.3 - ST elevation (STEMI) myocardial infarction of unspecified site (2) Acute kidney injury superimposed on stage 4 chronic kidney disease: Status: Acute Code(s): N17.9 - Acute kidney failure, unspecified; N18.4 - Chronic kidney disease, stage 4 (severe) (3) Leukocytosis: Status: Acute Code(s): D72.829 - Elevated white blood cell count, unspecified Medications at Discharge Home Medications aspirin 81 mg tablet,delayed release 81 mg PO DAILY@0800 health maintenance 01/21/17 mirtazapine 15 mg tablet (Remeron) 15 mg PO QHS sleep 09/21/18 cyanocobalamin (vitamin B-12) 1,000 mcg capsule 1,000 mcg PO DAILY vitamin ##0 06/01/19 magnesium oxide 400 mg (241.3 mg magnesium) tablet 800 mg PO DAILY SUPPLEMENT 08/01/21 cetirizine 10 mg tablet 10 mg PO DAILY PRN Allergic Reaction 09/16/21 cholecalciferol (vitamin D3) 25 mcg (1,000 unit) tablet [address] 09/16/21 fluoxetine 40 mg capsule 80 mg PO DAILY DEPRESSION 90 days #180 caps 09/16/21 acetaminophen 325 mg tablet 650 mg PO Q6H PRN Pain 1-02/0910/12/23 glimepiride 4 mg tablet 4 mg PO QDAY diabetes 03/20/24 atorvastatin 40 mg tablet 40 mg PO QHS CHOLESTEROL #90 tabs 06/14/24 losartan 100 mg tablet 100 mg PO DAILY blood pressure #90 tabs 06/14/24 Held on 12/02/24. Instructions: Until instructed to restart nitroglycerin 0.4 mg sublingual tablet 0.4 mg sublingual Q5-15M PRN CHEST PAIN #25 tabs 06/14/24 pantoprazole 40 mg tablet,delayed release 40 mg PO DAILY GERD #90 tabs 06/14/24 potassium chloride 20 mEq tablet,extended release(part/cryst) 60 meq (3 x 20 mEq) PO BID supplement #180 tabs 06/14/24 Held on 12/02/24. Instructions: Until instructed to restart spironolactone 50 mg tablet 50 mg PO DAILY diuretic #90 tabs 06/14/24 Held on 12/02/24. Instructions: Resume on 12/04/24. amlodipine 5 mg tablet 5 mg PO QPM blood pressure 10/25/24 isosorbide mononitrate 60 mg tablet,extended release 24 hr 60 mg PO BID heart #90 TABLETS 10/25/24 metolazone 2.5 mg tablet 2.5 mg PO QDAY diuretic 10/25/24 Held on 12/02/24. Instructions: Resume on 12/04/24. metoprolol succinate 25 mg tablet,extended release 24 hr 25 mg PO DAILY blood pressure #30 tabs 10/25/24 hydrocodone-acetaminophen 5-325mg 5mg-325mg 1 tab PO TID PRN pain 11/22/24 furosemide 80 mg tablet 80 mg PO DAILY #30 tabs 11/27/24 Held on 12/02/24. Instructions: Resume on 12/04/24. ticagrelor 90 mg tablet (Brilinta) 90 mg PO BID #60 tabs 12/02/24 Hospital Course Procedures 2-D Echocardiogram, Cardiac catheterization, EKG and - (MRA of the head and neck/CTA brain) Summary of Care Provided Minutes Spent on Discharge: 39 Hospital Course: Patient is a 79-year-old white male who presented to the emergency department at [facility] on 11/30/2024 as a STEMI alert. The patient follows with [facility] on the evening cardiology and has complex coronary disease history. He had stenting done x 2 in the RCA in 2005 and then had 3 in-stent stenosis in the proximal RCA requiring coronary angioplasty with stenting in 2022. And to an anomalous left circumflex artery. He had recurrent chest pain in October and a stress test on 11/10/2024 that showed Jeovanny infarct ischemia so a heart catheterization was done on 11/27/2024 and showed severe in-stent restenosis of a heavily calcified proximal RCA. PCI was performed with shockwave therapy and intracoronary lithotripsy as well as placement of a drug-eluting stent at that time. The left circumflex stent was patent. He presented on the day of admission with acute chest discomfort, nausea, and vomiting. An EKG was performed and consistent with ST segment elevation myocardial infarction in the inferior wall. He was taken emergency to [facility] and cardiac catheterization revealed subacute stent thrombosis of the proximal RCA. He had emergent percutaneous revascularization with balloon angioplasty to the previously deployed stent but unfortunately had thrombus that embolized to the right posterior lateral ventricle branch which was treated with balloon angioplasty and stent placement of 2 drug-eluting stents with post catheterization DEXTER flow 3. He had persistent ST elevation on his EKG. Given the fact that he developed thrombus on Plavix and aspirin he was transition to Brilinta and aspirin. He was noted to have SUSAN on CKD. His losartan was the be held continually until he is reevaluated by cardiology and we held his Aldactone and Lasix as well as metolazone. They were all held on discharge as well. His diuretics are to be restarted on Wednesday and his losartan is to be held until he is instructed to restart it. We also held his scheduled potassium for the short-term. He will need repeat lab within the next week. On the evening of the first he developed acute onset facial tingling and a stroke team was called. He was taken to CT which showed chronic findings but no acute changes. MRI and MRA were performed and were unremarkable. Neurology was consulted and they feel that this was a stress response related to his cardiac event and not TIA or stroke. Echocardiogram was done and showed mild left ventricular hypertrophy with mild reduced LV function at 50% and basal, mid lateral akinesis as well as basal inferoseptal hypokinesis and basal inferior hypokinesis with grade 1 diastolic dysfunction, mild RV dilation with preserved function and no valvular abnormalities. His only transition in therapy was from Plavix to Brilinta. Medications as above were held but all the medications were the same and no additional medications were given. He did have 1 episode of rectal bleeding after cardiac catheterization this appears to be hemorrhoidal and his hemoglobin was stable. Patient was feeling well in the afternoon of 12/02/2024 and was anxious to get to his granddaughter's wedding. Patient was cleared by cardiology and neurology for discharge. He is to follow-up with cardiology as instructed after discharge. He was told if he does not hear from their office on Wednesday please call on Wednesday to set up an appointment for post catheterization follow-up. Patient was discharged home in stable condition on 12/02/2024. Prescription for Brilinta was sent to his local pharmacy prior to discharge. Discharge diagnoses: STEMI Facial numbness Leukocytosis Thrombocytopenia Rectal bleeding-resolved SUSAN on CKD stage IV-improving DM-2 CAD Essential hypertension Hyperlipidemia GERD Chronic pain syndrome Anxiety Depression Insomnia Obesity Physical Exam Narrative Patient states he is feeling well at this time. No chest pain. Anxious to get home for his granddaughter's wedding tonight at 5 PM Const alert, oriented x3, no apparent distress and well nourished; Negative for average body habitus or healthy appearing Constitutional Narrative: Elderly, white male, sitting up in bed, appears comfortable, nontoxic General Appearance: cooperative, comfortable, well kempt and well developed Exam Limitations: no limitations Nutritional Appearance: obese HEENT normocephalic, head/scalp atraumatic and moist oral mucous membranes HEENT Narrative: Mild hearing loss, Mallampati 3, no thrush Eyes EOMs intact bilaterally and conjunctivae normal Eyes Narrative: No scleral icterus Resp normal respiratory effort, normal air movement, no retractions, no use of accessory muscles and clear to auscultation bilaterally Auscultation: Negative for crackles, rhonchi or wheezes Cardio regular rate, regular rhythm, S1 normal heart sound, S2 normal heart sound, no murmurs, no rub, no gallops, no clicks and peripheral pulses 2+ throughout GI normal to inspection, nondistended, normoactive bowel sounds, soft to palpation and non-tender GI Narrative: Large protuberant abdomen Back/Spine normal ROM Extremity normal to inspection, full ROM, no clubbing, cyanosis or edema and no pedal edema Extremity Narrative: 2+ pedal and radial pulses Skin skin turgor normal, no jaundice, no petechiae and no mottling Skin Narrative: Ecchymosis in the right groin status post catheterization, soft and minimal tenderness Neuro oriented x3, moves all extremities and no focal motor deficits Speech: speech normal Psych mental status grossly normal and affect normal Psych Narrative: Interacts appropriately, eye contact is good Weight / BMI Weight Weight: 109.7 kg Body Mass Index (BMI) 35.6 ABG / Lab / Microbiology Data 12/02/24 07:19 12/02/24 07:19 Laboratory: Laboratory Results - last 24 hr 12/01/24 17:01: POC Glucose 153 H 12/01/24 18:21: Hgb 10.6 L, Hct 32.7 L 12/01/24 19:23: POC Glucose 203 H 12/01/24 20:58: POC Glucose 148 H 12/02/24 06:28: POC Glucose 129 H 12/02/24 07:19: WBC 11.2 H, RBC 3.52 L, Hgb 10.4 L, Hct 32.1 L, MCV 91.2, MCH 29.5, MCHC 32.4, RDW Std Deviation 47.4 H, RDW Coeff of Adrian 14.4, Plt Count 113 L, MPV 13.1 H, Immature Gran % (Auto) 0.700, Neut % (Auto) 78.9 H, Lymph % (Auto) 7.6 L, [place] % (Auto) 12.0 H, Eos % (Auto) 0.7, Baso % (Auto) 0.1, Absolute Neuts (auto) 8.8 H, Absolute Lymphs (auto) 0.85, Nucleated RBC % 0, Sodium 133, Potassium 4.8, Chloride 99, Carbon Dioxide 20.6 L, Anion Gap 14, BUN 50 H, Creatinine 2.93 H, Estim Creat Clear Calc 24.95 L, Est GFR (MDRD) Non-Af 21 L, BUN/Creatinine Ratio 17.2, Glucose 138 H, Calcium 9.3 Radiography Diagnostic Testing: Radiology Impression Brain CT 12/01/24 19:30 IMPRESSION: 1. No acute intracranial abnormality. 2. Age-related senescent changes. Reading Location: [id number] Instructions Discharge Activity: Return to Normal Activity DC O2, CPAP, BIPAP Needs Home O2 Discharge instructions: No DC home with Oxygen: No Meaningful Use Info Meaningful Use Meaningful Use Diagnoses (Choose all that apply): AMI AMI/Post PCI/Angioplasty Aspirin given w/in 24hrs of arrival?: Yes ASA at discharge?: Yes Antiplatelet Therapy at Discharge:: Yes Statins at discharge?: Yes Andrea/ARB at discharge?: No Reason Andrea/ARB not ordered:: Worsening renal dysfunctn Beta Kale at discharge?: Yes Done w/ Acute GA measure.: Yes Documented LVEF (%): 50 Discharge Plan Admission Admit Date/Time: 11/30/24 16:59 Primary Reason for Your Visit: Chest pain Attending Provider: Nickie Danielson Primary Care Provider: Victor M Luke Consulting Providers: Abraham Ridley; Elvis Olvera; Sangeeta Negro; Faye Kingsley; Petrona Vargas; Candice Barlow; Diogenes Sheehan; Cari Shultz; Sherman Rouse; Seymour John; Jamar Tapia; Chrissy Mccallum; Fletcher Good; Sarah Beth Candelaria; Jody Kwon; Fermin José; Christiano Rogers; Nick Bernard; Zay Alanis; Kristina Danielson; Ernestina Milan Instructions Additional Instructions / Restrictions: 1. It is very important to not miss any doses of your ticagrelor (Brilinta) and aspirin. Please take these as prescribed with no missed doses. If you miss doses you could clot off your stents. Discharge Orders/Prescriptions Prescriptions: New ticagrelor [Brilinta] 90 mg Tablet 90 mg PO BID Qty: 60 11RF Continued fluoxetine 40 mg capsule 80 mg PO DAILY 90 Days Qty: 180 magnesium oxide 400 mg (241.3 mg magnesium) tablet 800 mg PO DAILY cetirizine 10 mg tablet 10 mg PO DAILY PRN (Reason: Allergic Reaction) cholecalciferol (vitamin D3) 25 mcg (1,000 unit) tablet 25 mcg PO DAILY glimepiride 4 mg tablet 4 mg PO QDAY hydrocodone-acetaminophen 5-325 mg tablet 1 tab PO TID PRN (Reason: pain) amlodipine 5 mg tablet 5 mg PO QPM isosorbide mononitrate 60 mg tablet extended release 24 hr 60 mg PO BID Qty: 90 3RF metoprolol succinate 25 mg tablet extended release 24 hr 25 mg PO DAILY Qty: 30 11RF aspirin 81 MG tablet 81 mg PO DAILY@0800 cyanocobalamin (vitamin B-12) 1,000 MCG capsule 1,000 mcg PO DAILY Qty: 0 acetaminophen 325 MG tablet 650 mg PO Q6H PRN (Reason: Pain 1-02/09) mirtazapine [Remeron] 15 mg tablet 15 mg PO QHS nitroglycerin 0.4 mg tablet, sublingual 0.4 mg SUBLINGUAL Q5-15M PRN (Reason: CHEST PAIN) Qty: 25 3RF atorvastatin 40 mg tablet 40 mg PO QHS Qty: 90 3RF pantoprazole 40 mg tablet,delayed release (DR/EC) 40 mg PO DAILY Qty: 90 3RF Held metolazone 2.5 mg tablet 2.5 mg PO QDAY Hold Instructions: Resume on 12/04/24. furosemide 80 mg Tablet 80 mg PO DAILY Qty: 30 6RF Hold Instructions: Resume on 12/04/24. losartan 100 mg tablet 100 mg PO DAILY Qty: 90 3RF Hold Instructions: Until instructed to restart potassium chloride 20 mEq tablet,ER particles/crystals 60 meq PO BID Qty: 180 3RF Hold Instructions: Until instructed to restart spironolactone 50 mg tablet 50 mg PO DAILY Qty: 90 3RF Hold Instructions: Resume on 12/04/24. Discontinued metformin 500 mg tablet 500 mg PO QDAY clopidogrel 75 mg tablet 75 mg PO DAILY Qty: 90 3RF Referrals / Follow Up: Jose Suárez MD [Med Staff - Active Staff] - See Referral Note (If you from the office on Wednesday please call on Wednesday morning to schedule a hospital follow-up after stent placement) Victor M Luke DO [Primary Care Provider] - In 1 Week Disposition Disposition (needs filled in before D/C Order can be placed): Home, Self Care Charges/Coding Visit Charges Inpatient E&M: 11880 Disch Hosp >30min
--- NOTE | 2024-12-02 16:51 | CASEMGMT ---
Social Work As per physician notes, it does not seem pt had a stroke. PHQ-9 not completed. ANNIE Reynoso
--- NOTE | 2024-12-14 09:44 | CL.I_ITS ---
Patient Name: GERRY GARCIA Study Date: 11/30/2024 Performing: Jose Suárez MD Ht: 69 inches 175.26 cm : 1945 Wt: 230.3 lbs 104.33 kg Age: 79 Gender: male BSA: 2.19 PROCEDURE(S) PERFORMED IC16-([id number])AMI, KENDALL OR PTCA, ARTERY/GRAFT, SINGLE VESSEL DC02-([id number])LHC/COR IC12-([id number])KENDALL W/WO PTCA, SINGLE CORONARY ARTERY IC08-([id number])IVUS, CORONARY OR GRAFT, INITIAL VESSEL CLINICAL PROFILE AND CO-MORBIDITIES Indications: ACS <= 24 hrs Heart Failure: None CAD Presentations: STEMI. Symptom onset Date/Time: 11/30/2024 Time Not Available CONCLUSIONS In-stent thrombosis Prox RCA Successful PCI with PTCA to the Prox RCA using 3.75 mm balloon, post-IVUS shows excellent stent apposition with 360* calcium RECOMMENDATIONS ASA Indefinitley Brilinta for at least 12 months DESCRIPTION OF PROCEDURE The patient arrived to the procedure lab. The risks and benefits of the procedure as well as a full description of our services here and lack of surgical backup were fully explained to the patient and/or their significant other prior to the catheterization. The Timeout was completed, verifying the correct patient and procedure. The patient's procedural site was prepped and draped in the usual fashion. Local anesthetic was given subcutaneously to right groin region with Lidocaine 2%. Using a modified Seldinger technique, arterial access was obtained via the right femoral artery, a 6Fr sheath was inserted.. Right Coronary Artery selective angiography was then performed in multiple views using a 6 Fr. AL 0.75 guide catheter JR 4.0 Guide catheter was inserted and engaged into the RCA. 3.5 x 15 NC Emerge Balloon catheter was inserted. Runthrough Guide wire was advanced to the RCA. PTCA balloon inflated at 12 atms for 8 secs. PTCA balloon inflated at 12 atms for 12 secs. PTCA balloon inflated at 12 atms for 12 secs. Angiogram performed post balloon dilatation. 2.5 x 20 Emerge Balloon catheter was inserted. Balloon catheter was advanced across lesion in the RPL, proximal. PTCA balloon inflated at 2 atms for 15 secs. PTCA balloon inflated at 2 atms for 15 secs. Balloon catheter was advanced across lesion in the graft to the Rt PL. PTCA balloon inflated at 8 atms for 13 secs. PTCA balloon inflated at 8 atms for 13 secs. PTCA balloon inflated at 10 atms for 25 secs. Angiogram performed post balloon dilatation. 2.5 x 34 [place] Drug Eluting stent was advanced across the lesion in the posterior lateral, proximal. 2 x 20 [place] Balloon catheter was inserted post stent. Angiogram performed post balloon dilatation. 2 x 18 [place] Drug Eluting stent was advanced across the lesion in the RPL, proximal. Angiogram performed post stent deployment. 2.5 x 20 NC Emerge Balloon catheter was inserted post stent. 3.75 x 15 NC Emerge Balloon catheter was inserted prox RCA. IVUS pullback recording was performed on the RPL for post PCI assessment. 3 x 15 NC Emerge Balloon catheter was inserted. Balloon catheter was inserted post stent. Angiogram performed post balloon dilatation. Contrast was injected through the sheath and the Right Iliac and Femoral artery were assessed for possible closure device. The arterial sheath was pulled and a Perclose closure device was deployed for hemostasis CORONARY ANGIOGRAPHY DOMINANCE: Right Dominant LEFT HEART ASSESSMENT Left Ventricular Ejection Fraction: Not assessed RIGHT CORONARY ARTERY: 100% Prox RCA INTERVENTION INFORMATION LESION SITE: RCA (Proximal) Lesion Complexity: High/C, lesion length: 20 mm, culprit lesion: Yes, Timeframe of previous treatment: <1 month, thrombus present: Yes Pre Stenosis: 100 % Pre intervention DEXTER flow: 0 PROCEDURE: Balloon Angioplasty, IVUS for post stent evaluation Post Stenosis: 0 % Post intervention DEXTER flow: 3 Lesion Devices: Cordis 6 Fr JR4 100cm Guide Catheter Terumo .014 180cm Runthrough Extra Floppy straight [employer] NC EMERGE MR 3.50x15 BALLOON [employer] NC EMERGE MR 3.75x15 BALLOON [employer] NC EMERGE MR 3.00x15 BALLOON LESION SITE: RPL (1st) thrombus present: Yes, Lesion Complexity: High/C, thrombus present: Yes, lesion length: 50 mm Pre Stenosis: 100 % Pre intervention DEXTER flow: 0 PROCEDURE: Drug Eluting Stent with pre and post dilatation Post Stenosis: 0 % Post intervention DEXTER flow: 3 Lesion Devices: Cordis 6 Fr JR4 100cm Guide Catheter Terumo .014 180cm Runthrough Extra Floppy straight Aqu[employer] EMERGE MR 2.50x20 BALLOON Medtronic SC EUPHORA RX 2.0x20 BALLOON Medtronic 2.50 x 34 AVELINO FRONTIER KENDALL Medtronic 2.00 x 18 AVELINO FRONTIER KENDALL [employer] NC EMERGE MR 2.50x20 BALLOON [employer] [facility] Coronary IVUS Catheter COMPLICATIONS No Complications PROCEDURE MEDICATIONS Fentanyl 50 mcg IV Fentanyl 50 mcg IV Fentanyl 50 mcg IV Versed 1 mg IV Oxygen: 3 L/min via nasal cannula Heparin 4000 unit(s) IV 11/30/2024 15:30:44 Heparin 4000 unit(s) IV 11/30/2024 15:30:44 SUMMARY OF HEMODYNAMIC DATA Time AIR REST AO 114/56 (76) SA 15:30:57 Signed By Jose Suárez MD On 11/30/2024 17:12:54 Jose Suárez MD
== END 2024-12-02 14:33 | disposition home or self-care (01) | DRG 321 ==
LOC: ED 16:16 → ICU 18:39 → PCU 12-02 14:08 → ICU 12-04 11:07
PROVIDERS: Admitting Provider Hospitalist; Emergency Provider Emergency Medicine; PCP Family Medicine; Referring Provider Internal Medicine Cardiovascular Disease; Visit Provider Internal Medicine
DX: T82.867A Thrombosis due to cardiac prosthetic devices, implants and grafts, initial encounter (principal); I21.3 ST elevation (STEMI) myocardial infarction of unspecified site; E43 Unspecified severe protein-calorie malnutrition; N17.9 Acute kidney failure, unspecified; I13.0 Hypertensive heart and chronic kidney disease with heart failure and stage 1 through stage 4 chronic kidney disease, or unspecified chronic kidney disease; N18.4 Chronic kidney disease, stage 4 (severe); K62.5 Hemorrhage of anus and rectum; D69.6 Thrombocytopenia, unspecified; E11.22 Type 2 diabetes mellitus with diabetic chronic kidney disease; D72.829 Elevated white blood cell count, unspecified; E11.65 Type 2 diabetes mellitus with hyperglycemia; J44.9 Chronic obstructive pulmonary disease, unspecified; F32.A Depression, unspecified; E66.812 Obesity, class 2; I25.2 Old myocardial infarction; K21.9 Gastro-esophageal reflux disease without esophagitis; F41.9 Anxiety disorder, unspecified; E78.5 Hyperlipidemia, unspecified; F43.9 Reaction to severe stress, unspecified; I25.10 Atherosclerotic heart disease of native coronary artery without angina pectoris; Z68.35 Body mass index [BMI] 35.0-35.9, adult; Z79.899 Other long term (current) drug therapy; Z86.16 Personal history of COVID-19; Z79.82 Long term (current) use of aspirin; Z79.02 Long term (current) use of antithrombotics/antiplatelets; Z95.5 Presence of coronary angioplasty implant and graft; Z79.84 Long term (current) use of oral hypoglycemic drugs; G89.4 Chronic pain syndrome; Z87.891 Personal history of nicotine dependence; G47.00 Insomnia, unspecified; N14.11 Contrast-induced nephropathy; Z86.73 Personal history of transient ischemic attack (TIA), and cerebral infarction without residual deficits; Z90.49 Acquired absence of other specified parts of digestive tract; R20.0 Anesthesia of skin; Y82.8 Other medical devices associated with adverse incidents
CPT/HCPCS: 36415; 70450; 70544; 70547; 70551; 71045; 80048; 80053; 82962; 83036; 84484; 85014; 85018; 85025; 85027; 85347; 85610; 85730; 92928; 92941; 92972; 92978; 93005; 93308; 93454; 94002; 97161; 97166; 99152; 99153; C1761; C1874; C1894; J0153; Q9957; Q9967; A4216; C1725; C1753; C1760; C1769; C1887; C8924; C9600; C9606; J1327; J1938; J2405

== ENCOUNTER 2024-12-02 20:15 | Inpatient (IN) | payer MEDICARE, OTHER, SELFPAY ==
[2018-08-03 13:04] VITALS: BMI 19.8
[2024-12-02] VITALS (12 sets, daily range): BP systolic 105–129; BP diastolic 63–84; PULSE 65–83; RESP 18–21; TEMP 37.1–37.2; O2SAT 95–98; BMI 35.9; BMI 36.3
--- NOTE | 2024-12-02 20:20 | EDS_ITS ---
HPI History of Present Illness Chief Complaint: Chest Pain Detail of Chief Complaint: Left-sided pressure with dyspnea diaphoresis Informant: patient and spouse/S.O. Onset/Context/Timing Onset: Today (30 to 45 minutes prior to presentation) Activity at onset: sudden Timing: Continuous Quality: Positive for Heaviness and Pressure Location: Left Parasternal Current Severity: Mild Maximum Severity: Moderate Worsened By: Nothing Relieved By: Nothing Associated Symptoms: Positive for Diaphoresis, Dyspnea and Lightheadedness (Weakness lightheadedness); Negative for Nausea, Vomiting, Cough, Fever, Acid Reflux or Palpitations Narrative Narrative: Patient is a 79-year-old male. He was seen for chest pain on November 26. Since both troponins were normal after discussion with cardiology he was discharged home. He underwent cardiac catheterization on 27 November. He had a stent placed in his proximal RCA. He returned on November 30 with EKG changes consistent with a ST elevation [place]. He had [address] elevation with reciprocal changes noted inferior leads. He was discharged from the hospital at approximately 1400 so he could go to his granddaughter's wedding. While at the wedding he developed left parasternal heaviness tightness with diaphoresis and shortness of breath. He received 4 baby aspirin and Brilinta prehospital. Heparin was ordered but not given since IV was not established. Based on the EKG prehospital STEMI alert was paged out. Spoke with cardiology. Patient still having chest discomfort. States its mild 2 to 3 out of 10. Patient has no other symptoms or complaints. Prior Similar Symptoms: Yes and With Prior NJ CVD Risk Factors: Positive for Hypertension, Diabetes and Hypercholesterolemia [facility] Medical History Anemia Diabetes mellitus Chronic kidney disease Shortness of breath Unstable angina Fatigue Syncope Left-sided weakness History of COVID-19 Presence of stent in coronary artery (~08/31/22) Dyslipidemia Coronary artery disease Angina pectoris Abnormal PFT Chest heaviness Palpitations DEAN (dyspnea on exertion) Dizziness Leg pain Cough Exposure to COVID-19 virus Nonhealing nonsurgical wound with fat layer exposed Laceration without foreign body of scalp, subsequent encounter Acute left-sided weakness Essential hypertension CHF (congestive heart failure) History of melanoma Obesity (BMI 35.0-39.9 without comorbidity) CAD (coronary artery disease) 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.9) COPD (chronic obstructive pulmonary disease) TIA (transient ischemic attack) Obstructive sleep apnea Chronic kidney disease, stage 3 Atherosclerotic heart disease bois forte coronary artery w/angina pectoris Type 2 diabetes mellitus without complications Hyperlipidemia Obesity Home Medications ?Medication ?Instructions ?Recorded ?Last Taken ?Type aspirin 81 mg tablet,delayed 81 mg PO DAILY@0800 healt h 01/21/17 10/11/23 History release maintenance mirtazapine 15 mg tablet (Remeron) 15 mg PO QHS sleep 09/21/18 10/11/23 History cyanocobalamin (vitamin B-12) 1,000 mcg PO DAILY vitam in ##0 06/01/19 10/11/23 History 1,000 mcg capsule magnesium oxide 400 mg (241.3 mg 800 mg PO DAILY SUPPL EMENT 08/01/21 10/11/23 History magnesium) tablet cetirizine 10 mg tablet 10 mg PO DAILY PRN Allergic 09/16/21 10/11/23 History Reaction cholecalciferol (vitamin D3) [address] 10/11/23 History mcg (1,000 unit) tablet fluoxetine 40 mg capsule 80 mg PO DAILY DEPRESSION 90 days 09/16/21 10/11/23 History #180 caps acetaminophen 325 mg tablet 650 mg PO Q6H PRN Pain 1-1 10/12/23 Unknown History glimepiride 4 mg tablet 4 mg PO QDAY diabetes Unknown History atorvastatin 40 mg tablet 40 mg PO QHS CHOLESTEROL #90 tabs 06/14/24 Unknown Rx losartan 100 mg tablet 100 mg PO DAILY blood pressu re #90 06/14/24 Unknown Rx Held on 12/02/24. tabs Instructions: Until instructed to restart nitroglycerin 0.4 mg sublingual 0.4 mg sublingual Q5-1 5M PRN CHEST 06/14/24 Unknown Rx tablet PAIN #25 tabs pantoprazole 40 mg tablet,delayed 40 mg PO DAILY GERD #90 tabs 06/14/24 Unknown Rx release potassium chloride 20 mEq 60 meq (3 x 20 mEq) PO BID 0 06/14/24 Unknown Rx tablet,extended release(part/cryst) supplement #180 ta bs Held on 12/02/24. Instructions: Until instructed to restart spironolactone 50 mg tablet 50 mg PO DAILY diuretic #9 0 tabs 06/14/24 Unknown Rx Held on 12/02/24. Instructions: Resume on 12/04/24. amlodipine 5 mg tablet 5 mg PO QPM blood pressure 0 10/25/24 Unknown History isosorbide mononitrate 60 mg 60 mg PO BID heart #90 TA BLETS 10/25/24 Unknown Rx tablet,extended release 24 hr metolazone 2.5 mg tablet 2.5 mg PO QDAY diuretic 10/02 09/24 Unknown History Held on 12/02/24. Instructions: Resume on 12/04/24. metoprolol succinate 25 mg 25 mg PO DAILY blood pressu re #30 10/25/24 Unknown Rx tablet,extended release 24 hr tabs hydrocodone-acetaminophen 5-325mg 1 tab PO TID PRN jennifer n 11/22/24 11/27/24 History 5mg-325mg furosemide 80 mg tablet 80 mg PO DAILY #30 tabs 11/01 12/25 Unknown Rx Held on 12/02/24. Instructions: Resume on 12/04/24. ticagrelor 90 mg tablet (Brilinta) 90 mg PO BID #60 ta bs 12/02/24 Unknown Rx Allergy/AdvReac Type Severity Reaction Status Date / Time No Known Allergies Allergy Verified 11/26/24 17:43 Family History Father Parkinsons disease Prostate cancer Mother Osteoporosis Surgical History Presence of coronary angioplasty implant and graft (11/27/24) History of tympanostomy tube placement History of percutaneous transluminal coronary angioplasty (08/18/18) History of herniorrhaphy Hx of cholecystectomy History of tonsillectomy History of prostatectomy Social History household members: spouse and none Smoking Status: Former smoker quit date: 05/03/98 pack-years: 50 how long ago did patient quit smokin years ago alcohol intake: never substance use type: does not use caffeine: Yes Type: coffee and tea Number of servings: 6 ROS ROS ED Constitutional Constitutional ED: Denies chills, fever(s) or subjective Eyes Eyes: Reports none Cardiovascular Cardiovascular: Reports as per HPI Respiratory/Chest Respiratory/Chest: Reports dyspnea; Denies cough Gastrointestinal Gastrointestinal: Reports nausea; Denies abdominal pain, constipation, melena or vomiting Genitourinary Genitourinary ED: Denies dysuria or hematuria Musculoskeletal Musculoskeletal: Denies arthralgias, back pain or myalgias Integumentary Denies rash Neurologic Neurologic: Reports weakness Hematologic/Lymphatic Hematologic/Lymphatic: Reports easy bruising; Denies easy bleeding EXAM Physical Exam Const Vital Signs: 12/02/24 20:16 12/02/24 20:19 12/02/24 20:21 Temperature 98.8 F Temperature Source Oral Pulse Rate 83 Respiratory Rate 19 H Respiratory Effort Blood Pressure 129/78 H 129/78 H Blood Pressure Mean 95 Pulse Ox 96 Oxygen Delivery Method Nasal Cannula Nasal Cannula Oxygen Flow Rate (L/min) 3 3 12/02/24 20:24 Temperature Temperature Source Pulse Rate Respiratory Rate Respiratory Effort Short of Breath Blood Pressure Blood Pressure Mean Pulse Ox Oxygen Delivery Method Oxygen Flow Rate (L/min) Positive well nourished and well developed Constitutional Narrative: BMI is 36. He appears slightly pale. He is skin is moist. General Appearance ED: well developed and pallor HEENT normocephalic and atraumatic Eyes PERRL and EOMs intact bilaterally General Eye ED: Negative for pale conjunctiva or scleral icterus Neck no lymphadenopathy, supple and no JVD Chest Wall inspection of chest normal and palpation of chest normal Resp normal respiratory effort and clear to auscultation bilaterally Cardio regular rate, regular rhythm, S1 normal heart sound, S2 normal heart sound and no murmurs GI normal to inspection, nondistended, normoactive bowel sounds, soft to palpation, non-tender, non-distended and no masses; Negative for hepatosplenomegaly Back/Spine no CVA tenderness and no thoracic nor lumbar tenderness Extremity Extremity Narrative: Patient has bruising of his right upper extremity and right groin. Neuro CN's II-XII intact bilaterally Sensorium / Orientation: awake and alert Psych mental status grossly normal Skin no rashes or lesions noted and no wounds General Skin Exam: pallor MDM MDM MDM Narrative Medical decision making narrative: STEMI alert was paged based on prehospital EKG which revealed ST elevation in inferior leads with reciprocal changes. His ER visits for the and were reviewed. His assessment by Dr. Dickey on all 3 November 30 was reviewed. Spoke with Dr[address] Simpson the clinical specialist medical device. He was made aware of patient's history, EKG findings and prehospital treatment. Lab Data Attestation: I reviewed the patient's lab results. Lab results narrative: EKG was not repeated since prehospital EKG revealed ST elevation [place] with reciprocal changes. CBC reveals mild anemia with an elevated white count. This is unchanged from prior. Electrolyte panel is remarkable for CO2 of 20.5 with a normal anion gap. Creatinine is elevated 2.9. Glucose is elevated 175 with a normal anion gap. Prior creatinine was 2.93 with an estimated GFR of 21 which is unchanged. Labs: Laboratory Results - last 24 hr 12/02/24 20:19 WBC 12.7 H RBC 3.81 L Hgb 11.1 L Hct 34.1 L MCV 89.5 MCH 29.1 MCHC 32.6 RDW Std Deviation 45.8 H RDW Coeff of Adrian 14.1 Plt Count 134 L MPV 12.8 H Immature Gran % (Auto) 0.600 Neut % (Auto) 76.7 H Lymph % (Auto) 8.9 L [place] % (Auto) 12.7 H Eos % (Auto) 0.8 Baso % (Auto) 0.3 Absolute Neuts (auto) 9.8 H Absolute Lymphs (auto) 1.13 Nucleated RBC % 0 PT 14.6 INR 1.1 APTT 31.6 Sodium 131 L Potassium 4.6 Chloride 96 L Carbon Dioxide 20.5 L Anion Gap 14 BUN 52 H Creatinine 2.90 H Estim Creat Clear Calc 25.31 L Est GFR (MDRD) Non-Af 21 L BUN/Creatinine Ratio 18.0 Glucose 175 H Calcium 9.1 Management Discussion w/another healthcare provider: Hospitalist (Dr. Alex Handley) and Remedy Developer (marine electronics repairer) Critical Care Time Critical Care Time: Yes Critical care time (excluding procedures): 30-74 minutes (15), Including time spent: (History, physical, documentation, prehospital med direction, discussion with , review of prior records and independent rotation of EKG), Discussing w/Patient &/or Family/Pneumatic Jack Operator (Spoke with who informing that he just left the hospital this afternoon to attend his granddaughter's wedding.), Discussing w/Consultants (marine electronics repairer and hospitalist) and Arranging Admission or Transfer Discharge Plan Dx/Rx/DC Orders Clinical Impression: Acute ST elevation myocardial infarction (STEMI) of inferior wall, Obstructive sleep apnea, Obesity, Chronic kidney disease, Diabetes mellitus, Hyperlipidemia Disposition Disposition: Acute Care Hospital [facility] [place] [facility]
[2024-12-02] MEDS: Heparin Injection (Vial) 5,000 UNIT/ML VIAL 5000 UNIT IV (20:22)
[2024-12-02 20:28] LABS: Hematocrit 34.1 % (40-54); Hemoglobin 11.1 g/dL (13.0-16.5); Immature Granulocytes Count 0.070 X10^3/uL (0.0-0.0); Mean Corp Hgb Conc 32.6 g/dL (32-36); Mean Corpuscular Volume 89.5 fL (80-94); Mean Platelet Vol. 12.8 fl (6.2-12.0); NRBC Flagged by Analyzer 0 % (0-5); POSITIVE DIFFERENTIAL YES; Platelet Count 134 K/mm3 (150-450); RBC Distribution Width CV 14.1 % (11.6-14.6); RBC Distribution Width SD 45.8 fl (35.1-43.9); Red Blood Count 3.81 M/mm3 (4.6-6.2); White Blood Count 12.7 K/mm3 (4.4-11.0)
[2024-12-02 20:33] LABS: Differential Indicated SCAN CRITERIA MET
--- OUTSIDE RECORDS SUMMARY | 2024-12-02 20:33 | XMS RPT_ITS | CCD ---
Author Organization [facility] Care Team Providers Care Riveter Hand Name Role Phone Unavailable Unavailable Unavailable Marycarmen Rodriguez DO Primary Care Provider Marycarmen Rodriguez DO Primary Care Provider [phone] MIN HOWARD Referring Unavailable MARYCARMEN RODRIGUEZ Primary [...] Care Unavailable MARYCARMEN RODRIGUEZ Primary Care Unavailable DAVAKIS, ELADIO ALLEN Referring Unavaila ble DAVAKIS, ELADIO ALLEN Attending Unavaila ble SCHWANFERNANDA Attending Unavailable MARYCARMEN RODRIGUEZ Primary Care Unavailable SCHWFERNANDA RODRIGUEZ Referring Unavailable SCHWANFERNANDA Attending Unavailable MARYCARMEN RODRIGUEZ Primary Care Unavailable MARYCARMEN RODRIGUEZ Admitting Unavailable DAVAKISELADIO Attending Unavaila ble JENNIFERMARYCARMEN RUIZ Referring Unavailable MARYCARMEN RODRIGUEZ Primary Care Unavailable SHIRA, ELADIO ALLEN Attending Unavaila ble MARYCARMEN RODRIGUEZ Primary Care Unavailable Dr. Marycarmen Rodriguez Primary Care Provider [phone] Marycarmen Rodriguez Referring Provider Mike PEREA, WAITER/WAITRESS TAKE OUT-C Luz Elena Attending Provider Dr. Darnell Corral Attending Provider [phone] Mike WAITER/WAITRESS TAKE OUT, WAITER/WAITRESS TAKE OUT-C Luz Elena Referring Provider Mike WAITER/WAITRESS TAKE OUT, WAITER/WAITRESS TAKE OUT-C Luz Elena Other Provider Dr. John Palacios Attending Provider Mike WAITER/WAITRESS TAKE OUT, WAITER/WAITRESS TAKE OUT-C Luz Elena Referring Provider Dr. Marycarmen Rodriguez Primary Care Provider [phone] Dr. Marycarmen Rodriguez Referring Provider Mike WAITER/WAITRESS TAKE OUT, ELIAZAR-C Luz Elena Attending Provider Dr. Zen [...] Emergency Provider Dr. Alka Leo Admit Provider [phone] Dr. Alka Leo Attending Provider Dr. Alka Leo Other Provider Dr. Shaan Santos Attending Provider Dr. Shaan Santos Other Provider Dr. Aimee Cummins Attending Provider Mike WAITER/WAITRESS TAKE OUT, WAITER/WAITRESS TAKE OUT-C Luz Elena Attending Provider Adina Vallejo Attending [...] Dr. Marycarmen Rodriguez DO Attending Provider Beto WAITER/WAITRESS TAKE OUT-C, Gustabo H Attending Provider Roof WAITER/WAITRESS TAKE OUT-C, Gustabo H Referring Provider Justina WAITER/WAITRESS TAKE OUT-CMarni Attending Provider Justina WAITER/WAITRESS TAKE OUT-CMarni Referring Provider Dr. Marycarmen Rodriguez DO Primary Care Provider Dr. Marycarmen Rodriguez DO Referring Provider Dr. Jose Hay MD Attending Provider Justina WAITER/WAITRESS TAKE OUT-CMarni Other Provider Dr. Zen East DO Attending Provider Dr. Marycarmen Rodriguez DO Primary Care Provider Dr. Marycarmen Rodriguez DO Referring Provider Dr. Marycarmen Rodriguez DO Attending Provider Dr. Marycarmen Rodriguez DO Primary Care Provider Dr. Marycarmen Rodriguez DO Referring Provider Brendon WAITER/WAITRESS TAKE OUT-C, Maren Clarke Attending Provider Brendon WAITER/WAITRESS TAKE OUT-C, Maren Clarke Referring Provider Cruzito CATHERINE, Dr. Zaldivar Attending Provider Pauline PALOMO, Dr. Guy Attending Provider Pauline PALOMO, Dr. Guy Referring Provider Roof WAITER/WAITRESS TAKE OUT-C, Gustabo Gao Other Provider Roof WAITER/WAITRESS TAKE OUT-C, Gustabo H Attending Provider Jennifer CATHERINE, Dr. Dow Primary Care Provider Jennifer CATHERINE, Dr. Dow Attending Provider Jennifer CATHERINE, Dr. Dow Primary Care Provider Horn WAITER/WAITRESS TAKE OUT-C, Marni Attending Provider Horn WAITER/WAITRESS TAKE OUT-C, Marni Referring Provider Dr. Marycarmen Rodriguez DO Referring Provider Roof WAITER/WAITRESS TAKE OUT-C, Gustabo Gao Referring Provider Jennifer PALOMO, Dr. Lucas Attending Provider Unavailab bear Hay MD, Dr. Garcia Attending Provider Dr. Marycarmen Rodriguez DO Primary Care Provider Horn WAITER/WAITRESS TAKE OUT-C, Marni Attending Provider Horn WAITER/WAITRESS TAKE OUT-C, Marni Referring Provider Dr. Marycarmen Rodriguez DO Referring Provider Brendon WAITER/WAITRESS TAKE OUT-C, Maren Clarek Attending Provider Brendon WAITER/WAITRESS TAKE OUT-C, Maren Clarke Referring Provider Dr. Marycarmen Rodriguez DO Attending Provider Pauline PALOMO, Dr. Guy Attending Provider Pauline PALOMO, Dr. Guy Referring Provider Roof WAITER/WAITRESS TAKE OUT-C, Gustabo H Other Provider Roof WAITER/WAITRESS TAKE OUT-C, Gustabo H Attending Provider Roof WAITER/WAITRESS TAKE OUT-C, Gustabo H Referring Provider Jennifer PALOMO, Dr. Lucas Attending Provider Unavailab le Jose Armando PALOMO, Dr. Garcia Attending Provider Florecita PALOMO, Isael Emergency Provider [phone] Jose Armando PALOMO, Dr. Garcia Admit Provider Jose Armando PALOMO, Dr. Garcia Referring Provider Keyana CATHERINE, Dr. Rosario Admit Provider Dr. Abraham Ridley DO Attending Provider Zen East Attending Unavailable Justina WAITER/WAITRESS TAKE OUT, Marni Referring Unavailable Jennifer, Marycarmen Primary Care Unavailable Jose Armando, Jose Referring Unavailable Jennifer, Marycarmen Primary Care Unavailable Nickie Danielson Attending Unavailable Abraham Ridley Consulting Unavailable Abraham Ridley Admitting Unavailable Nickie Danielson Consulting Unavailable Marcin Araujo Attending Unavailable Roof WAITER/WAITRESS TAKE OUT, Gustabo Gao Attending Unavailable Jennifer, Marycarmen Referring Unavailable Jennifer, Marycarmen Primary Care Unavailable Jennifer, Marycarmen Primary Care Unavailable Jose Armando, Jose Attending Unavailable Jennifer, Marycarmen Primary Care Unavailable Roof WAITER/WAITRESS TAKE OUT, Gustabo Gao Attending Unavailable Jennifer, Marycarmen Referring Unavailable Maren Olivas Attending Unavailable Jennifer, Marycarmen Referring Unavailable Jennifer, Marycarmen Primary Care Unavailable Roof WAITER/WAITRESS TAKE OUT, Gustabo Gao Consulting Unavailable Brooks Carpenter Attending Unavailable Brooks Carpenter Referring Unavailable Jennifer, Marycarmen Primary Care Unavailable Jennifer, Marycarmen Attending Unavailable Jennifer, Marycarmen Referring Unavailable Jennifer, Marycarmen Primary Care Unavailable Jennifer, Marycarmen Referring Unavailable Jennifer, Marycarmen Primary Care Unavailable Horn WAITER/WAITRESS TAKE OUT, Marni Attending Unavailable Jennifer, Marycarmen Primary Care Unavailable Jennifer, Marycarmen Attending Unavailable Jennifer, Marycarmen Primary Care Unavailable Jose Armando, Jose Referring Unavailable Jose Armando, Jose Admitting Unavailable Jose Armando, Jose Attending Unavailable Isael Bernabe Attending Unavailable Jennifer, Marycarmen Primary Care Unavailable Roof WAITER/WAITRESS TAKE OUT, Gustabo H Attending Unavailable Roof WAITER/WAITRESS TAKE OUT, Gustabo H Referring Unavailable Jennifer, Marycarmen Primary Care Unavailable Jennifer, Marycarmen Primary Care Unavailable Jennifer, Marycarmen Attending Unavailable Jennifer, Marycarmen Primary Care Unavailable Lance Rodriguez Attending Unavailable Roof WAITER/WAITRESS TAKE OUT, Gustabo H Referring Unavailable Jennifer, Marycarmen Primary Care Unavailable Horn WAITER/WAITRESS TAKE OUT, Marni Referring Unavailable Horn WAITER/WAITRESS TAKE OUT, Marni Attending Unavailable Jennifer, Marycarmen Primary Care Unavailable Roof WAITER/WAITRESS TAKE OUT, Gustabo H Referring Unavailable Roof WAITER/WAITRESS TAKE OUT, Gustabo H Attending Unavailable Elvis Olvera Consulting Unavailable Adeli, Amir Consulting Unavailable Hindupretty, Faye Consulting Unavailable Sam, Petrona Consulting Unavailable Zha, Candice Consulting Unavailable Sissy, Diogenes Consulting Unavailable Cari Shultz Consulting Unavailable Sherman Rouse Consulting Unavailable Seymour John Consulting Unavailable Jamar Tapia Consulting Unavailable Chrissy Mccallum Consulting Unavailable Fletcher Good Consulting Unavailable Sarah Beth Candelaria Consulting Unavailable Jody Kwon Consulting Unavailable Fermin José Consulting UnavailMin Woodruff Consulting Unavailable Nick Bernard Consulting Unavailable Zay Alanis Consulting Unavailable Kristina Danielson Consulting Unavailable Ernestina Milan Consulting Unavailable Jennifer, Marycarmen Primary Care Unavailable Horn WAITER/WAITRESS TAKE OUT, Marni Referring Unavailable Horn WAITER/WAITRESS TAKE OUT, Marni Attending Unavailable Maren Olivas Attending Unavailable Maren Olivas Referring Unavailable Jennifer, Marycarmen Primary Care Unavailable Jennifer, Marycarmen Attending Unavailable Jennifer, Marycarmen Primary Care Unavailable Jennifer, Marycarmen Primary Care Unavailable Horn WAITER/WAITRESS TAKE OUT, Marni Attending Unavailable Horn WAITER/WAITRESS TAKE OUT, Marni Attending Unavailable Jennifer, Marycarmen Primary Care Unavailable Jennifer, Marycarmen Primary Care Unavailable Horn WAITER/WAITRESS TAKE OUT, Marni Referring Unavailable Horn WAITER/WAITRESS TAKE OUT, Marni Attending Unavailable Roof WAITER/WAITRESS TAKE OUT, Gustabo H Attending Unavailable Jennifer, Marycarmen Referring Unavailable Jennifer, Marycarmen Primary Care Unavailable Maren Olivas Attending Unavailable Jennifer, Marycarmen Referring Unavailable Jennifer, Marycarmen Primary Care Unavailable Jose ArmandoJose Attending Unavailable Jennifer, Marycarmen Referring Unavailable Jennifer, Marycarmen Primary Care Unavailable Jose ArmandoJose Attending Unavailable Jennifer, Marycarmen Referring Unavailable Jennifer, Marycarmen Primary Care Unavailable Roof WAITER/WAITRESS TAKE OUT, Gustabo H Referring Unavailable Roof WAITER/WAITRESS TAKE OUT, Gustabo H Consulting Unavailable Jose Hay Attending Unavailable Jennifer, Marycarmen Primary Care Unavailable Jennifer, Marycarmen Primary Care Unavailable Zen East Attending Unavailable Horn WAITER/WAITRESS TAKE OUT, Marni Referring Unavailable Horn WAITER/WAITRESS TAKE OUT, Marni Consulting Unavailable Jennifer, Marycarmen Primary Care Unavailable Basali, Ayman Attending Unavailable Basali, Ayman Referring Unavailable Jennifer, Marycarmen Primary Care Unavailable Horn WAITER/WAITRESS TAKE OUT, Marni Referring Unavailable Horn WAITER/WAITRESS TAKE OUT, Marni Attending Unavailable Roof WAITER/WAITRESS TAKE OUT, Gustabo H Referring Unavailable Roof WAITER/WAITRESS TAKE OUT, Gustabo H Attending Unavailable Jennifer, Marycarmen Primary Care Unavailable Horn WAITER/WAITRESS TAKE OUT, Marni Referring Unavailable Jennifer, Marycarmen Primary Care Unavailable Horn WAITER/WAITRESS TAKE OUT, Marni Attending Unavailable RufenerMaren M Attending Unavailable RufenerMaren M Referring Unavailable Jennifer, Marycarmen Primary Care Unavailable Jose Armando, Jose Referring Unavailable Jose Armando, Jose Attending Unavailable Jennifer, Marycarmen Primary Care Unavailable Abraham Ridley Attending Unavailable Dr. Marycarmen Rodriguez DO Primary Care Provider Horn WAITER/WAITRESS TAKE OUT-C, Marni Attending Provider Horn WAITER/WAITRESS TAKE OUT-C, Marni Referring Provider Isael Bernabe MD Attending Provider Dr. Abraham Ridley DO Other Provider [phone] Dr. Nickie Danielson DO Attending Provider [phone] Elvis Olvera MD Other Provider Unavailable Marky PALOMO, Dr. Rutherford Other Provider Faye Kingsley MD Other Provider Unavailable Dr. Petrona Vargas DO Other Provider Dr. Candice Barlow MD Other Provider Dr. Diogenes Sheehan MD Other Provider Dr. Cari Shultz MD Other Provider [phone] Sherman Rouse MD Other Provider [phone] Seymour John MD Other Provider Willie PALOMO, Dr. Roldan Other Provider [phone] Chrissy Mccallum MD Other Provider [phone] Florentino PALOMO, Dr. Bynum Other Provider [phone] Bari PALOMO, Dr. Burleson Other Provider Cher PALOMO, Dr. Vera Other Provider Arnav PALOMO, Dr. Fermin Hernandez Other Provider Ken PALOMO, Dr. Alvarado Other Provider [phone] Joana PALOMO, Dr. Romero Other Provider Annabelle PALOMO, Dr. Collazo Other Provider Jagjit PALOMO, Dr. Acevedo Other Provider Unavailable Kayli PALOMO, Ernestina Other Provider Unavailable Dr. Abraham Ridley DO Attending Provider Dr. Nickie Danielson DO Other Provider [phone] Gayle PALOMO, Dr. Burch Attending Provider [phone] Medications Current Medications Medication Drug Class(es) Dates [...] as needed 0 April 17, 2024 1:00am aspirin 81 mg delayed releas e oral [...] 2021 10:49am DEPRESSION take 1 capsule by [facility] twice daily FLUoxetine (PROZAC) 40 MG capsule Take 40 mg by mouth 2 (two) times a day . 0 Active furosemide 80 mg oral tablet (20 sources) Loop Diuretic Start: 11-27-2024 Start: 09-08-2018 End: 11-27-2024 Start: 09-08-2018 End: 06-15-2019 take 1 tablet by mouth once daily Furosemide 40 mg tablet Discontinued 40 mg PO DAILY 0 0 June 04, 2019 10:41am June 15, 2019 4:42pm diuretic Start: 09-08-2018 End: 06-14-2024 Start: 09-08-2018 End: 06-14-2024 Start: 12-02-2017 End: 09-08-2018 Start: 01-21-2017 End: 12-02-2017 Start: 05-07-2016 take 1 tablet by sara th once daily furosemide (LASIX) 80 MG tablet Take 1 tablet (80 mg total) by mouth daily. 90 tablet 3 05/07/2016 Active glimepiride 4 mg oral tablet (20 sources) Sulfonylurea Start: 03-20-2024 Start: 09-16-2021 End: 10-12-2023 Start: 09-16-2021 End: [...] hr Discontinued 90 mg PO .COMPLEX 0 3 April 06, 2019 12:16pm June 01, 2019 [...] 2018 11:10am sleep Start: 08-26-2018 End: 09-21-2018 spironolactone 50 mg oral ta blet (20 [...] 26, 2018 12:43pm Start: 08-30-2017 End: 08-30-2017 (20 sources) Start: 12-02-2024 Start: 04-27-2024 End: 06-14-2024 Start: 03-20-2024 Start: 09-21-2022 End: 10-12-2023 Start: 08-01-2021 End: 08-19-2022 Start: 06-04-2019 End: 06-04-2019 Start: 06-01-2019 End: 06-04-2019 Completed/Discontinued Medications Medication Drug Class(es) Dates Sig (Normalized) Sig (Original) [id number] 200 actuat albuterol 0.09 mg/actuat metered dose inhaler (20 sources) beta2-Adrenergic Agonist Start: 09-20-2024 End: 11-30-2024 Start: 09-20-2024 Albuterol Sulf ate 90 mcg/actuation HFA aerosol inhaler Active 2 NMA INHALATION EVERY 4-6 HOURS as needed for shortness of breath or wheezing 8.5 3 September 20, 2024 12:00am amLODIPine 5 mg [...] sources) P2Y12 Platelet Inhibitor Start: 03-28-2017 End: 12-02-2024 Start: 05-07-2016 take 1 tablet by sara [...] ORAL) Take by mouth. Active Fluticasone Furoate (20 sources) Corticosteroid Start: 09-20-2024 End: 11-22-2024 Start: 09-20-2024 take 200 ug by inhal ation every twenty-four hours Fluticasone Furoate (Arnuity Ellipta) 200 mcg/actuation blister with device Active 1 NMA INHALATION Q24H 30 September 20, 2024 12:00am Start: 09-20-2024 take 200 ug by inhal ation every twenty-four hours Fluticasone Furoate (Arnuity Ellipta) 200 mcg/actuation blister with device Active 1 NMA INHALATION Q24H September 20, 2024 12:00am gabapentin 100 mg oral capsule (20 sources) [...] daily Magnesium Discontinued 400 MG PO DAILY June 04, 2019 9:41am June 04, 2019 [...] 400 mg oral tablet (20 sources) Start: 06-04-2019 End: 08-01-2021 Start: 06-04-2019 End: 08-01-2021 Start: 06-04-2019 End: 08-01-2021 Start: 06-04-2019 End: 06-15-2019 take 1 tablet by mouth twice daily at mealtime Magnesium Oxide 400 MG tablet Discontinued 400 mg PO TWICE DAILY WITH MEALS 0 June 04, 2019 1:00am June 15, 2019 4:11pm Start: 04-12-2018 End: 08-26-2018 Start: 04-12-2018 End: 08-26-2018 Start: 04-12-2018 End: [...] tablet (20 sources) Biguanide Start: 11-21-2021 End: 12-02-2024 Start: 11-21-2021 End: 10-25-2024 metroNIDAZOLE 500 mg [...] 180 tablet 3 08/07/2016 Active perflutren lipid microsphere s (DEFINITY) 0.143 mg/mL solution 0-10 mL of mixture (1 source) Start: 10-15-2020 End: 10-15-2020 perflutren lipid microsphere s (DEFINITY) 0.143 mg/mL solution 0-10 mL of mixture microencapsulated potassium chloride 20 meq extended release oral tablet (20 sources) Start: 04-12-2018 End: 06-14-2024 Start: 04-12-2018 End: [...] a day. 540 tablet 3 03/28/2017 Active pravastatin sodium 20 mg ora l tablet (20 sources) HMG-CoA Reductase Inhibitor Start: [...] 2017 7:41pm predniSONE 20 mg oral tablet (19 sources) Start: 09-20-2024 End: 10-25-2024 pregabalin 50 mg oral capsul e (20 sources) Start: 08-27-2017 End: 09-07-2017 12 hr ranolazine 1000 mg ext ended release oral tablet (20 sources) Anti-anginal Start: 10-29-2023 End: 11-12-2023 Start: 10-01-2023 End: 10-29-2023 Semaglutide (20 sources) Start: 04-17-2024 End: 05-15-2024 Start: 04-17-2024 [...] 01-21-2017 End: 08-30-2017 Start: 03-26-2016 End: 09-21-2018 Problems Active Problems Problem Classification Problem Date Documented Date Episodic/Chronic Acute and unspecified renal failure (3 sources) Acute kidney failure, unspecified; Translations: [Luxsd-zx-luhbwit renal failure] Onset: 12-02-2024 12-01-2024 Episodic Acute myocardial infarction (7 sources) Myocardial infarction; Translations: [ST elevation (STEMI) myocardial infarction of unspecified site] Onset: 11-30-2024 11-30-2024 Chronic Asthma (20 sources) Asthma; Translations: [Unspecified asthma, uncomplicated] 10-31-2024 Chronic Cardiac dysrhythmias (20 sources) Palpitations; Translations: [Palpitations] Onset: 10-25-2024 Episodic Chronic kidney disease (20 sources) Chronic kidney disease stage 3; Translations: [Stage 3 chronic kidney disease] Onset: 12-02-2024 12-09-2020 Chronic Chronic kidney disease (7 sources) Chronic kidney disease; Translations: [Chronic kidney [...] heart disease (20 sources) Coronary arteriosclerosis in [place] artery; Translations: [Preinfarction syndrome] Onset: 01-05-2015 10-15-2016 [...] mellitus without complications] Onset: 11-22-2024 01-05-2015 Chronic Diseases of white blood cells (3 sources) Elevated white blood cell count, unspecified; Translations: [Leukocytosis] Onset: 12-02-2024 12-01-2024 Chronic Disorders of lipid metabolism (20 sources) Hyperlipidemia; Translations: [Hyperlipidemia, unspecified] Onset: 11-22-2024 06-17-2015 Chronic Diverticulosis and diverticulitis (20 sources) Diverticulitis; Translations: [Diverticulitis of intestine, part unspecified, without perforation or abscess without bleeding] 05-27-2021 Chronic E Codes: Fall (6 sources) Fall; Translations: [Unspecified fall, initial encounter] 11-26-2024 Episodic Essential hypertension (20 sources) Hypertensive disorder; Translations: [...] injuries and conditions due to external causes (20 sources) Open wound; Translations: [Other injury of unspecified body region, initial encounter] 12-14-2022 Episodic Other injuries and conditions due to external causes (6 sources) Abrasion; Translations: [Other injury of unspecified body region, initial encounter] 11-26-2024 Episodic Other lower respiratory disease (20 sources) Dyspnea; Translations: [Shortness of breath] Episodic Other lower respiratory disease (20 sources) Dyspnea on exertion; Translations: [Dyspnea, unspecified] Episodic Other lower respiratory disease (20 sources) Cough; Translations: [Cough] 01-26-2021 Episodic Other lower respiratory disease (4 sources) Dyspnea, unspecified; Translations: [Other respiratory abnormalities] Onset: 10-25-2024 Episodic Other lower respiratory disease (20 sources) Wheezing; Translations: [Wheezing] 09-20-2024 Episodic Other lower respiratory disease (2 sources) Shortness of breath; Translations: [Shortness of breath] Onset: 11-17-2024 Episodic Other lower respiratory disease (1 source) [...] 10-19-2024 Chronic Residual codes; unclassified (20 sources) Central sleep apnea syndrome; Translations: [Primary [...] Translations: [Opioid dependence, uncomplicated] Onset: 10-24-2024 Chronic Superficial injury; contusion (18 sources) Contusion of left knee; Translations: [Contusion of left knee, initial encounter] 11-26-2024 Episodic Syncope (20 sources) Syncope; Translations: [Syncope [...] multiple wires and attempts. Procedure aborted. 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-[id number]-Fr and Stent-Mid RCA x 2 Multi Link [...] Range Facility Absolute lymphocyte countOrd ered By: Nickie Danielson on 12-02-2024 Lymphocytes Auto (Unsp spec) [#/Vol] 0.85 10*3/uL 0.83-4.51 [facility] Anion gap in Serum or Plasma Ordered By: Nickie Danielson on 12-02-2024 Anion gap [Moles/Vol] 14 mmol/L 5-15 [facility] Automated lymphocyte count a s percentage of total leukocytesOrdered By: Nickie Danielson on 12-02-2024 Lymphocytes/100 WBC Auto (Unsp spec) 7.6 % Low 19-41 [facility] BUN/creatinine ratioOrdered By: Nickie Danielson on 12-02-2024 Urea nitrogen/Creatinine [Mass ratio] 17.2 mg/mg 10-20 [facility] Basophil percentageOrdered B y: Nickie Danielson on 12-02-2024 Basophils/100 WBC (Bld) 0.1 % 0-1 [facility] Bedside Glucoseon 12-02-2024 FINGERSTICK GLU 129 mg/dL High 74-106 [facility] Comment on above: Result Comment: WILDA GEMENT OF PATIENT CARE PER NURSING PROTOCOL Performed By: #### L 501.080 ####[facility] [id number] [place], [address] Carbon dioxide, total [Moles /volume] in Central venous bloodOrdered By: Nickie Danielson on 12-02-2024 CO2 [Moles/Vol] 20.6 mmol/L Low 21.0-32.0 [facility] Chloride assayOrdered By: Korina Danielson on 12-02-2024 Chloride [Moles/Vol] 99 mmol/L 98-108 [facility] Eosinophil percentageOrdered By: Nickie Danielson on 12-02-2024 Eosinophils/100 WBC (Bld) 0.7 % 0-5 [facility] Erythrocyte distribution wid th ratioOrdered By: Nickie Danielson on 12-02-2024 Erythrocyte distribution width (RBC) [Ratio] 14.4 % 11.6-14.6 [facility] Erythrocyte distribution wid th standard deviationOrdered By: Nickie Danielson on 12-02-2024 Erythrocyte distribution width (RBC) [Ratio] 47.4 fl High 35.1-43.9 [facility] Glomerular filtration rate ( GFR) estimation/1.73 sq m using serum, plasma, or whole bOrdered By: Nickie Danielson on 12-02-2024 GFR/1.73 sq M.predicted among non-blacks MDRD (S/P/Bld) [Vol rate/Area] 21 mL/min/{1.73_m2} Low >60 [facility] deOrdered By: Nickie Danielson on 12-02-2024 Glucose [Mass/Vol] 129 mg/dL High 74-[address] [facility] Hematocrit Auto (Bld) [Volum e fraction]Ordered By: Nickie Danielson on 12-02-2024 Hematocrit (Bld) [Volume fraction] 32.1 % Low 40-54 [facility] Hemoglobin measurementOrdere d By: Nickie Danielson on 12-02-2024 Hemoglobin (Bld) [Mass/Vol] 10.4 g/dL Low 13.0-16.5 [facility] Immature granulocytes/100 WB C Auto (Bld)Ordered By: Nickie Danielson on 12-02-2024 Immature granulocytes/100 WBC (Bld) 0.700 % 0.0-0.9 [facility] MCV (mean corpuscular volume ) determinationOrdered By: Nickie Danielson on 12-02-2024 MCV (RBC) [Entitic vol] 91.2 fL 80-94 [facility] Magnetic resonance imaging r eportOrdered By: Nghia Waters on 12-02-2024 Study report [facility] Mean corpuscular hemoglobin (MCH) determinationOrdered By: Nickie Danielson on 12-02-2024 MCH (RBC) [Entitic mass] 29.5 pg 27.0-32.0 [facility] Monocyte percentageOrdered B y: Nickie Danielson on 12-02-2024 Monocytes/100 WBC (Bld) 12.0 % High 0-10 [facility] Neutrophil percentageOrdered By: Nickie Danielson on 12-02-2024 Neutrophils/100 WBC (Bld) 78.9 % High 47-70 [facility] Platelet countOrdered By: Korina Danielson on 12-02-2024 Platelets (Bld) [#/Vol] 113 10*3/uL Low 150-450 [facility] Potassium measurement (mass/ volume)Ordered By: Nickie Danileson on 12-02-2024 Potassium (Unsp spec) [Mass/Vol] 4.8 mmol/L 3.3-5.1 [facility] RBC Auto (Bld) [#/Vol]Ordere d By: Nickie Danielson on 12-02-2024 RBC (Bld) [#/Vol] 3.52 10*6/uL Low 4.6-6.2 [facility] Serum creatinine measurement (mass/volume)Ordered By: Nickie Danielson on 12-02-2024 Creatinine [Mass/Vol] 2.93 mg/dL High 0.70-1.20 [facility] Serum glucose measurement (m ass/volume)Ordered By: Nickie Danielson on 12-02-2024 Glucose [Mass/Vol] 138 mg/dL High 70-99 [facility] Serum or plasma calcium francine urement (mass/volume)Ordered By: Nickie Danielson on 12-02-2024 Calcium [Mass/Vol] 9.3 mg/dL 7.6-11.0 [facility] Serum or plasma urea nitroge n measurement (mass/volume)Ordered By: Nickie Danielson on 12-02-2024 Urea nitrogen [Mass/Vol] 50 mg/dL High 4-19 [facility] Sodium levelOrdered By: Johanna Danielson on 12-02-2024 Sodium [Moles/Vol] 133 mmol/L 133-145 [facility] White blood cell (WBC) count Ordered By: Nickie Danielson on 12-02-2024 WBC (Bld) [#/Vol] 11.2 10*3/uL High 4.4-11.0 [facility] 12 Lead EKGon 12-01-2024 12 Lead EKG Normal [facility] Bedside Glucoseon 12-01-2024 FINGERSTICK GLU 148 mg/dL High 74-106 [facility] Comment on above: Result Comment: IWLDA GEMENT OF PATIENT CARE PER NURSING PROTOCOL Performed By: #### L 501.080 ####[facility] [address] [place], [address] FINGERSTICK GLU 203 mg/dL High 74-106 [facility] Comment on above: Result Comment: WILDA GEMENT OF PATIENT CARE PER NURSING PROTOCOL Performed By: #### L 501.080 ####[facility] [address] [place], [address] FINGERSTICK GLU 153 mg/dL High 74-106 [facility] Comment on above: Result Comment: WILDA GEMENT OF PATIENT CARE PER NURSING PROTOCOL Performed By: #### L 501.080 ####[facility] [address] [place], [address] FINGERSTICK GLU 187 mg/dL High 74-106 [facility] Comment on above: Result Comment: WILDA GEMENT OF PATIENT CARE PER NURSING PROTOCOL Performed By: #### L 501.080 ####[facility] [address] [place], [address] FINGERSTICK GLU 223 mg/dL High -106 [facility] Comment on above: Result Comment: WILDA GEMENT OF PATIENT CARE PER NURSING PROTOCOL Performed By: #### L 501.080 ####[facility] [address] [place], [address] Bilirubin, totalOrdered By: Jose Hay on 12-01-2024 Bilirubin [Mass/Vol] 1.07 mg/dL 0.00-1.30 [facility] CBC-Complete Blood Cnt No Di ffon 12-01-2024 Erythrocyte distribution width (RBC) [Ratio] 14.0 % Normal 11.6-14.6 [facility] Comment on above: Performed By: #### L 100.0500, L500.4050 ####[facility] [address] [place], [address] Hematocrit (Bld) [Volume fraction] 33.2 % Low 40-54 [facility] Comment on above: Performed By: #### L 100.0500, L500.4050 ####[facility] [address] [place], [address] Hemoglobin (Bld) [Mass/Vol] 10.8 g/dL Low 13.0-16.5 [facility] Comment on above: Performed By: #### L 100.0500, L500.4050 ####[facility] [address] [place], [address] MCH (RBC) [Entitic mass] 29.3 pg Normal 27.0-32.0 [facility] Comment on above: Performed By: #### L 100.0500, L500.4050 ####[facility] [address] [place], [address] MCHC (RBC) [Mass/Vol] 32.5 g/dL Normal 32-36 [facility] Comment on above: Performed By: #### L 100.0500, L500.4050 ####[facility] [address] [place], [address] MCV (RBC) [Entitic vol] 90.2 fL Normal 80-94 [facility] Comment on above: Performed By: #### L 100.0500, L500.4050 ####[facility] [address] [place], [address] Platelet mean volume (Bld) [Entitic vol] 12.7 fL High 6.2-12.0 [facility] Comment on above: Performed By: #### L 100.0500, L500.4050 ####[facility] [address] [place], [address] Platelets (Bld) [#/Vol] 142 10*3/uL Low 150-450 [facility] Comment on above: Performed By: #### L 100.0500, L500.4050 ####[facility] [address] [place], [address] RBC (Bld) [#/Vol] 3.68 10*6/uL Low 4.6-6.2 [facility] Comment on above: Performed By: #### L 100.0500, L500.4050 ####[facility] [address] [place], [address] RDW SD 45.8 fl High 35.1-43.9 [facility] Comment on above: Performed By: #### L 100.0500, L500.4050 ####[facility] [address] [place], [address] WBC (Bld) [#/Vol] 14.6 10*3/uL High 4.4-11.0 [facility] Comment on above: Performed By: #### L 100.0500, L500.4050 ####[facility] [address] [place], [address] Cardiac rehabilitation repor tOrdered By: Natacha Fermin on 12-01-2024 Study report [facility] Comprehensive Metabolic Prof ilon 12-01-2024 Albumin [Mass/Vol] 3.7 g/dL Normal 3.4-4.8 [facility] Comment on above: Performed By: #### L 100.0500, L500.4050 ####[facility] [address] [place], [address] Albumin/Globulin [Mass ratio] 1.5 {ratio} Normal 0.9-2.4 [facility] Comment on above: Performed By: #### L 100.0500, L500.4050 ####[facility] [address] [place], [address] ALK PHOS 82 U/L Normal 40-129 [facility] Comment on above: Performed By: #### L 100.0500, L500.4050 ####[facility] [address] [place], [address] ALT [Catalytic activity/Vol] 77 U/L High <=46 [facility] Comment on above: Performed By: #### L 100.0500, L500.4050 ####[facility] [address] [place], [address] AST [Catalytic activity/Vol] 497 U/L High <=37 [facility] Comment on above: Performed By: #### L 100.0500, L500.4050 ####[facility] [address] [place], [address] Bilirubin [Mass/Vol] 1.07 mg/dL Normal 0.00-1.30 [facility] Comment on above: Performed By: #### L 100.0500, L500.4050 ####[facility] [address] [place], [address] BUN/CRE 14.2 RATIO Normal 10-20 [facility] Comment on above: Performed By: #### L 100.0500, L500.4050 ####[facility] [address] [place], [address] Calcium [Mass/Vol] 8.7 mg/dL Normal 7.6-11.0 [facility] Comment on above: Performed By: #### L 100.0500, L500.4050 ####[facility] [address] [place], [address] Chloride [Moles/Vol] 100 mmol/L Normal 98-108 [facility] Comment on above: Performed By: #### L 100.0500, L500.4050 ####[facility] [address] [place], [address] CO2 [Moles/Vol] 20.3 mmol/L Low 21.0-32.0 [facility] Comment on above: Performed By: #### L 100.0500, L500.4050 ####[facility] [address] [place], [address] Creatinine [Mass/Vol] 3.16 mg/dL High 0.70-1.20 [facility] Comment on above: Performed By: #### L 100.0500, L500.4050 ####[facility] [address] [place], [address] ECRCL 23.23 ml/min Low 50-250 [facility] Comment on above: Performed By: #### L 100.0500, L500.4050 ####[facility] [address] [place], [address] GAP 14 Normal 5-15 [facility] Comment on above: Performed By: #### L 100.0500, L500.4050 ####[facility] [address] [place], [address] GFR/1.73 sq M.predicted among non-blacks MDRD (S/P/Bld) [Vol rate/Area] 19 mL/min/{1.73_m2} Low >60 [facility] Comment on above: Result Comment: mL/m in/1.73m2 CKD-EPI Creatinine Equation (2020) Performed By: #### L 100.0500, L500.4050 ####[facility] [address] [place], [address] Globulin (S) [Mass/Vol] 2.4 g/dL Normal 2.2-4.2 [facility] Comment on above: Performed By: #### L 100.0500, L500.4050 ####[facility] [address] [place], [address] Glucose [Mass/Vol] 157 mg/dL High 70-99 [facility] Comment on above: Performed By: #### L 100.0500, L500.4050 ####[facility] [address] [place], [address] Potassium [Moles/Vol] 5.0 mmol/L Normal 3.3-5.1 [facility] Comment on above: Performed By: #### L 100.0500, L500.4050 ####[facility] [address] [place], [address] Sodium [Moles/Vol] 134 mmol/L Normal 133-145 [facility] Comment on above: Performed By: #### L 100.0500, L500.4050 ####[facility] [address] [place], [address] T PROT 6.0 g/dL Normal 5.9-8.4 [facility] Comment on above: Performed By: #### L 100.0500, L500.4050 ####[facility] [address] [place], [address] Urea nitrogen [Mass/Vol] 45 mg/dL High 4-19 [facility] Comment on above: Performed By: #### L 100.0500, L500.4050 ####[facility] [address] [place], [address] Echo Limited w/Contraston Echo Limited w/Contrast Normal [facility] Electrocardiogram reportOrde red By: Marcin Araujo on 12-01-2024 EKG study [facility] Work Phone: HH, Hemoglobin AND Hematocri ton 12-01-2024 Hematocrit (Bld) [Volume fraction] 32.7 % Low 40-54 [facility] Comment on above: Performed By: #### L 100.0600 ####[facility] [address] [place], [address] Hemoglobin (Bld) [Mass/Vol] 10.6 g/dL Low 13.0-16.5 [facility] Comment on above: Performed By: #### L 100.0600 ####[facility] [address] [place], [address] Limited echocardiogram repor tOrdered By: Lance Espino on 12-01-2024 Study report [facility] Other Phone: No Panel InformationOrdered By: Jose Hay on 12-01-2024 497 U/L High <38 [facility] STROKE Brain/Head without Co nton 12-01-2024 STROKE Brain/Head without Cont Normal [facility] Serum globulin measurementOr dered By: Jose Hay on 12-01-2024 Globulin (S) [Mass/Vol] 2.4 g/dL 2.2-4.2 [facility] Serum or plasma alanine guerrero otransferase (ALT) measurementOrdered By: Jose Hay on 12-01-2024 ALT [Catalytic activity/Vol] 77 U/L High <47 [facility] Serum or plasma albumin francine urement (mass/volume)Ordered By: Jose Hay on 12-01-2024 Albumin [Mass/Vol] 3.7 g/dL 3.4-4.8 [facility] Serum or plasma albumin/glob ulin mass ratioOrdered By: Jose Hay on 12-01-2024 Albumin/Globulin [Mass ratio] 1.5 {ratio} 0.9-2.4 [facility] Serum or plasma alkaline bell sphatase measurementOrdered By: Jose Hay on 12-01-2024 ALP [Catalytic activity/Vol] 82 U/L 40-129 [facility] Total proteinOrdered By: Emmanuel Hay on 12-01-2024 Protein [Mass/Vol] 6.0 g/dL 5.9-8.4 [facility] ACT Activated Clotting Timeo n 11-30-2024 ACTk CLOT TIME 187 sec High 74-137 [facility] Comment on above: Performed By: #### L 9100.0100 ####[facility] [address] [facility] [place], [place], [id number] ACTk CLOT TIME 176 sec High 74-137 [facility] Comment on above: Performed By: #### L 9100.0100 ####[facility] [address] [facility] [place], [place], [id number] Absolute lymphocyte countOrd ered By: Isael Bernabe on 11-30-2024 Lymphocytes Auto (Unsp spec) [#/Vol] 1.93 10*3/uL 0.83-4.51 [facility] Activated partial thrombopla stin time (aPTT) in platelet poor plasma by coagulation aOrdered By: Isael Bernabe on 11-30-2024 aPTT Coag (PPP) [Time] 112.9 s High 24.1-36.2 [facility] Anion gap in Serum or Plasma Ordered By: Isael Bernabe on 11-30-2024 Anion gap [Moles/Vol] 19 mmol/L High 5-15 [facility] Automated lymphocyte count a s percentage of total leukocytesOrdered By: Isael Bernabe on 11-30-2024 Lymphocytes/100 WBC Auto (Unsp spec) 10.1 % Low 19-41 [facility] BUN/creatinine ratioOrdered By: Isael Bernabe on 11-30-2024 Urea nitrogen/Creatinine [Mass ratio] 14.4 mg/mg 10- [facility] Basic Metabolic Profile (BMP )on 11-30-2024 BUN/CRE 14.4 RATIO Normal - [facility] Comment on above: Performed By: #### L 501.4021, L300.3900, L300.4310, L100.0100, L500.2500 ####[facility] [address] [place], [address] Calcium [Mass/Vol] 9.5 mg/dL Normal 7.6-11.0 [facility] Comment on above: Performed By: #### L 501.4021, L300.3900, L300.4310, L100.0100, L500.2500 ####[facility] [address] [place], [address] Chloride [Moles/Vol] 98 mmol/L Normal 98-108 [facility] Comment on above: Performed By: #### L 501.4021, L300.3900, L300.4310, L100.0100, L500.2500 ####[facility] [address] [place], [address] CO2 [Moles/Vol] 18.3 mmol/L Low 21.0-32.0 [facility] Comment on above: Performed By: #### L 501.4021, L300.3900, L300.4310, L100.0100, L500.2500 ####[facility] [address] [place], [address] Creatinine [Mass/Vol] 3.10 mg/dL High 0.70-1.20 [facility] Comment on above: Performed By: #### L 501.4021, L300.3900, L300.4310, L100.0100, L500.2500 ####[facility] [address] [place], [address] GAP 19 High 5-15 [facility] Comment on above: Performed By: #### L 501.4021, L300.3900, L300.4310, L100.0100, L500.2500 ####[facility] [address] [place], [address] GFR/1.73 sq M.predicted among non-blacks MDRD (S/P/Bld) [Vol rate/Area] 20 mL/min/{1.73_m2} Low >60 [facility] Comment on above: Result Comment: mL/m in/1.73m2 CKD-EPI Creatinine Equation (2020) Performed By: #### L 501.4021, L300.3900, L300.4310, L100.0100, L500.2500 ####[facility] [address] [place], [address] Glucose [Mass/Vol] 328 mg/dL High 70-99 [facility] Comment on above: Performed By: #### L 501.4021, L300.3900, L300.4310, L100.0100, L500.2500 ####[facility] [address] [place], [address] Potassium [Moles/Vol] 4.4 mmol/L Normal 3.3-5.1 [facility] Comment on above: Performed By: #### L 501.4021, L300.3900, L300.4310, L100.0100, L500.2500 ####[facility] [address] [place], [address] Sodium [Moles/Vol] 135 mmol/L Normal 133-145 [facility] Comment on above: Performed By: #### L 501.4021, L300.3900, L300.4310, L100.0100, L500.2500 ####[facility] [address] [place], [address] Urea nitrogen [Mass/Vol] 45 mg/dL High 4-19 [facility] Comment on above: Performed By: #### L 501.4021, L300.3900, L300.4310, L100.0100, L500.2500 ####[facility] [address] [place], [address] Basophil percentageOrdered B y: Isael Bernabe on 11-30-2024 Basophils/100 WBC (Bld) 0.2 % 0-1 [facility] Bedside Glucoseon 11-30-2024 FINGERSTICK GLU 167 mg/dL High 74-106 [facility] Comment on above: Result Comment: WILDA BARROSO OF PATIENT CARE PER NURSING PROTOCOL Performed By: #### L 501.080 ####[facility] [address] [place], [address] CBC W/Diff, Automatedon 11-02 Absolute Lymph 1.93 X10 3/uL Normal 0.83-4.51 [facility] Comment on above: Performed By: #### L 501.4021, L300.3900, L300.4310, L100.0100, L500.2500 ####[facility] [address] [place], [address] Absolute Neut 15.5 X10 3/uL High 2.0-7.7 [facility] Comment on above: Performed By: #### L 501.4021, L300.3900, L300.4310, L100.0100, L500.2500 ####[facility] [address] [place], [address] Basophils/100 WBC (Bld) 0.2 % Normal 0-1 [facility] Comment on above: Performed By: #### L 501.4021, L300.3900, L300.4310, L100.0100, L500.2500 ####[facility] [address] [place], [address] Eosinophils/100 WBC (Bld) 0.4 % Normal 0-5 [facility] Comment on above: Performed By: #### L 501.4021, L300.3900, L300.4310, L100.0100, L500.2500 ####[facility] [address] [place], [address] Erythrocyte distribution width (RBC) [Ratio] 13.5 % Normal 11.6-14.6 [facility] Comment on above: Performed By: #### L 501.4021, L300.3900, L300.4310, L100.0100, L500.2500 ####[facility] [address] [place], [address] Hematocrit (Bld) [Volume fraction] 39.6 % Low 40-54 [facility] Comment on above: Performed By: #### L 501.4021, L300.3900, L300.4310, L100.0100, L500.2500 ####[facility] [address] [place], [address] Hemoglobin (Bld) [Mass/Vol] 12.5 g/dL Low 13.0-16.5 [facility] Comment on above: Performed By: #### L 501.4021, L300.3900, L300.4310, L100.0100, L500.2500 ####[facility] [address] [place], [address] IG% 0.700 Normal 0.0-0.9 [facility] Comment on above: Result Comment: IG% - Immature Granulocytes (promyelocytes, myelocytes andmetamyelocytes) > 1% indicates that a LEFT SHIFT is Present. Performed By: #### L 501.4021, L300.3900, L300.4310, L100.0100, L500.2500 ####[facility] [address] [place], [address] Lymphocytes/100 WBC (Bld) 10.1 % Low 19-41 [facility] Comment on above: Performed By: #### L 501.4021, L300.3900, L300.4310, L100.0100, L500.2500 ####[facility] [address] [place], [address] MCH (RBC) [Entitic mass] 29.3 pg Normal 27.0-32.0 [facility] Comment on above: Performed By: #### L 501.4021, L300.3900, L300.4310, L100.0100, L500.2500 ####[facility] [address] [place], [address] MCHC (RBC) [Mass/Vol] 31.6 g/dL Low 32-36 [facility] Comment on above: Performed By: #### L 501.4021, L300.3900, L300.4310, L100.0100, L500.2500 ####[facility] [address] [place], [address] MCV (RBC) [Entitic vol] 93.0 fL Normal 80-94 [facility] Comment on above: Performed By: #### L 501.4021, L300.3900, L300.4310, L100.0100, L500.2500 ####[facility] [address] [place], [address] Monocytes/100 WBC (Bld) 7.7 % Normal 0-10 [facility] Comment on above: Performed By: #### L 501.4021, L300.3900, L300.4310, L100.0100, L500.2500 ####[facility] [address] [place], [address] Neutrophils/100 WBC (Bld) 80.9 % High 47-70 [facility] Comment on above: Performed By: #### L 501.4021, L300.3900, L300.4310, L100.0100, L500.2500 ####[facility] [address] [place], [address] Nucleated RBC (Bld) [#/Vol] 0.1 10*3/uL Normal 0-5 [facility] Comment on above: Performed By: #### L 501.4021, L300.3900, L300.4310, L100.0100, L500.2500 ####[facility] [address] [place], [address] Platelet mean volume (Bld) [Entitic vol] 13.7 fL High 6.2-12.0 [facility] Comment on above: Performed By: #### L 501.4021, L300.3900, L300.4310, L100.0100, L500.2500 ####[facility] [address] [place], [address] Platelets (Bld) [#/Vol] 168 10*3/uL Normal 150-450 [facility] Comment on above: Performed By: #### L 501.4021, L300.3900, L300.4310, L100.0100, L500.2500 ####[facility] [address] [place], [address] RBC (Bld) [#/Vol] 4.26 10*6/uL Low 4.6-6.2 [facility] Comment on above: Performed By: #### L 501.4021, L300.3900, L300.4310, L100.0100, L500.2500 ####[facility] [address] [place], [address] RDW SD 45.9 fl High 35.1-43.9 [facility] Comment on above: Performed By: #### L 501.4021, L300.3900, L300.4310, L100.0100, L500.2500 ####[facility] [address] [place], [address] WBC (Bld) [#/Vol] 19.2 10*3/uL High 4.4-11.0 [facility] Comment on above: Performed By: #### L 501.4021, L300.3900, L300.4310, L100.0100, L500.2500 ####[facility] [address] [place], [address] CBC-Complete Blood Cnt No Di ffon 11-30-2024 HCT Normal 40-54 [facility] Comment on above: Result Comment: NO S PECIMEN COLLECTED Performed By: #### L 100.0500 ####[facility] [address] [place], [address] HGB Normal 13.0-16.5 [facility] Comment on above: Result Comment: NO S PECIMEN COLLECTED Performed By: #### L 100.0500 ####[facility] [address] [place], [address] MCH Normal 27.0-32.0 [facility] Comment on above: Result Comment: NO S PECIMEN COLLECTED Performed By: #### L 100.0500 ####[facility] [address] [place], [address] MCHC Normal 32-36 [facility] Comment on above: Result Comment: NO S PECIMEN COLLECTED Performed By: #### L 100.0500 ####[facility] [address] [place], [address] MCV Normal 80-94 [facility] Comment on above: Result Comment: NO S PECIMEN COLLECTED Performed By: #### L 100.0500 ####[facility] [address] [place], [address] PLT Normal 150-450 [facility] Comment on above: Result Comment: NO S PECIMEN COLLECTED Performed By: #### L 100.0500 ####[facility] [address] [place], [address] RBC Normal 4.6-6.2 [facility] Comment on above: Result Comment: NO S PECIMEN COLLECTED Performed By: #### L 100.0500 ####[facility] [address] [place], [address] RDW CV Normal 11.6-14.6 [facility] Comment on above: Result Comment: NO S PECIMEN COLLECTED Performed By: #### L 100.0500 ####[facility] [address] [place], [address] RDW SD Normal 35.1-43.9 [facility] Comment on above: Result Comment: NO S PECIMEN COLLECTED Performed By: #### L 100.0500 ####[facility] [address] [place], [address] WBC Normal 4.4-11.0 [facility] Comment on above: Result Comment: NO S PECIMEN COLLECTED Performed By: #### L 100.0500 ####[facility] [address] [place], [address] Carbon dioxide, total [Moles /volume] in Central venous bloodOrdered By: Isael Bernabe on 11-30-2024 CO2 [Moles/Vol] 18.3 mmol/L Low 21.0-32.0 [facility] Chest 1 View (Portable)on Chest 1 View (Portable) Normal [facility] Chloride assayOrdered By: Jaylen Bernabe on 11-30-2024 Chloride [Moles/Vol] 98 mmol/L 98-108 [facility] Consultation - Cardiologyon 11-30-2024 Consultation - Cardiology Normal [facility] Emergency Department Summary on 11-30-2024 Emergency Department Summary Normal [facility] Eosinophil percentageOrdered By: Isael Bernabe on 11-30-2024 Eosinophils/100 WBC (Bld) 0.4 % 0-5 [facility] Erythrocyte distribution wid th ratioOrdered By: Isael Bernabe on 11-30-2024 Erythrocyte distribution width (RBC) [Ratio] 13.5 % 11.6-14.6 [facility] Erythrocyte distribution wid th standard deviationOrdered By: Isael Bernabe on 11-30-2024 Erythrocyte distribution width (RBC) [Ratio] 45.9 fl High 35.1-43.9 [facility] Glomerular filtration rate ( GFR) estimation/1.73 sq m using serum, plasma, or whole bOrdered By: Isael Bernabe on 11-30-2024 GFR/1.73 sq M.predicted among non-blacks MDRD (S/P/Bld) [Vol rate/Area] 20 mL/min/{1.73_m2} Low >60 [facility] H AND P Exam - Hospitaliston 11-30-2024 H&P Exam - Hospitalist Normal [facility] Hematocrit Auto (Bld) [Volum e fraction]Ordered By: Isael Bernabe on 11-30-2024 Hematocrit (Bld) [Volume fraction] 39.6 % Low 40-54 [facility] Hemoglobin A1con 11-30-2024 HbA1c (Bld) [Mass fraction] 7.0 % High <=5.6 [facility] Comment on above: Result Comment: Norm al < 5.7 % Prediabetic 5.7 - 6.4 % Diabetic >or= 6.5 % Please note range changes. Performed By: #### L 316.5526 ####[facility] [address] [place], [place], [id number] Hemoglobin A1c percentageOrd ered By: Abraham rohit on 11-30-2024 HbA1c (Bld) [Mass fraction] 7.0 % High <5.7 [facility] Hemoglobin measurementOrdere d By: Isael Bernabe on 11-30-2024 Hemoglobin (Bld) [Mass/Vol] 12.5 g/dL Low 13.0-16.5 [facility] Immature granulocytes/100 WB C Auto (Bld)Ordered By: Isael Bernabe on 11-30-2024 Immature granulocytes/100 WBC (Bld) 0.700 % 0.0-0.9 [facility] L501.4021on 11-30-2024 Trop T High Sen 61 ng/L Invalid Interpretation Code <=22 [facility] Comment on above: Result Comment: Crit ical Result(s) Called at: 1621 by: MOISE MEDINA??Results read back by same. Performed By: #### L 501.4021, L300.3900, L300.4310, L100.0100, L500.2500 ####[facility] [address] [place], [place], [id number] MCV (mean corpuscular volume ) determinationOrdered By: Isael Bernabe on 11-30-2024 MCV (RBC) [Entitic vol] 93.0 fL 80-94 [facility] MR/QUALITYon 11-30-2024 MR/QUALITY Normal [facility] Mean corpuscular hemoglobin (MCH) determinationOrdered By: Isael Bernabe on 11-30-2024 MCH (RBC) [Entitic mass] 29.3 pg 27.0-32.0 [facility] Monocyte percentageOrdered B y: Isael Bernabe on 11-30-2024 Monocytes/100 WBC (Bld) 7.7 % 0-10 [facility] Neutrophil percentageOrdered By: Isael Bernabe on 11-30-2024 Neutrophils/100 WBC (Bld) 80.9 % High 47-70 [facility] Partial Thromboplast Timeon 11-30-2024 aPTT Coag (Bld) [Time] 112.9 s Invalid Interpretation Code 24.1-36.2 [facility] Comment on above: Result Comment: CRIT ICAL VALUE CALLED TO CAITLIN ANTOINE11/30/24 [address].RESULTS READ BACK BY SAME. Performed By: #### L 501.4021, L300.3900, L300.4310, L100.0100, L500.2500 ####[facility] [address] [place], [address] Platelet countOrdered By: Jaylen Bernabe on 11-30-2024 Platelets (Bld) [#/Vol] 168 10*3/uL 150-450 [facility] Potassium measurement (mass/ volume)Ordered By: Isael Bernabe on 11-30-2024 Potassium (Unsp spec) [Mass/Vol] 4.4 mmol/L 3.3-5.1 [facility] Prothrombin Time w/INRon INR Coag (PPP) [Relative time] 1.3 {INR} Normal [facility] Comment on above: Performed By: #### L 501.4021, L300.3900, L300.4310, L100.0100, L500.2500 ####[facility] [address] [place], [address] PT Coag (PPP) [Time] 16.1 s High 11.7-14.9 [facility] Comment on above: Performed By: #### L 501.4021, L300.3900, L300.4310, L100.0100, L500.2500 ####[facility] [address] [place], [address] Prothrombin timeOrdered By: Isael Bernabe on 11-30-2024 PT Coag (PPP) [Time] 16.1 s High 11.7-14.9 [facility] RBC Auto (Bld) [#/Vol]Ordere d By: Isael Bernabe on 11-30-2024 RBC (Bld) [#/Vol] 4.26 10*6/uL Low 4.6-6.2 [facility] Serum creatinine measurement (mass/volume)Ordered By: Isael Bernabe on 11-30-2024 Creatinine [Mass/Vol] 3.10 mg/dL High 0.70-1.20 [facility] Serum glucose measurement (m ass/volume)Ordered By: Isael Bernabe on 11-30-2024 Glucose [Mass/Vol] 328 mg/dL High 70-99 [facility] Serum or plasma calcium francine urement (mass/volume)Ordered By: Isael Bernabe on 11-30-2024 Calcium [Mass/Vol] 9.5 mg/dL 7.6-11.0 [facility] Serum or plasma urea nitroge n measurement (mass/volume)Ordered By: Isael Bernabe on 11-30-2024 Urea nitrogen [Mass/Vol] 45 mg/dL High 4-19 [facility] Sodium levelOrdered By: Isael Bernabe on 11-30-2024 Sodium [Moles/Vol] 135 mmol/L 133-145 [facility] Troponin T HS 2 HRon 025 Trop T High Sen Normal <=22 [facility] Comment on above: Result Comment: [employer] crews via OM: Ordered Performed By: #### L 499.0042 ####[facility] [address] [place], [place], [id number] Troponin T HS 4 HRon 025 Trop T High Sen Normal <=22 [facility] Comment on above: Result Comment: [employer] crews via OM: Ordered Performed By: #### L 499.0043 ####[facility] [address] [place], [place], [address] Troponin T.cardiac [Mass/vol ume] in Serum or Plasma by High sensitivity methodOrdered By: Isael Bernabe on 11-30-2024 Troponin T.cardiac High sensitivity method [Mass/Vol] 61 ng/L High <22 [facility] White blood cell (WBC) count Ordered By: Isael Bernabe on 11-30-2024 WBC (Bld) [#/Vol] 19.2 10*3/uL High 4.4-11.0 [facility] ACT Activated Clotting Timeo n 11-28-2024 ACTk CLOT TIME 205 sec High 74-137 [facility] Comment on above: Performed By: #### L 9100.0100 ####[facility] [address] [place], [address] ACTk CLOT TIME 227 sec High 74-137 [facility] Comment on above: Performed By: #### L 9100.0100 ####[facility] [address] [place], [address] Anion gap in Serum or Plasma Ordered By: Jose Hay on 11-28-2024 Anion gap [Moles/Vol] 13 mmol/L 5- [facility] BUN/creatinine ratioOrdered By: Jose Hay on 11-28-2024 Urea nitrogen/Creatinine [Mass ratio] 15.2 mg/mg 10- [facility] Bilirubin, totalOrdered By: Jose Hay on 11-28-2024 Bilirubin [Mass/Vol] 0.78 mg/dL 0.00-1.30 [facility] CBC-Complete Blood Cnt No Di ffon 11-28-2024 Erythrocyte distribution width (RBC) [Ratio] 13.6 % Normal 11.6-14.6 [facility] Comment on above: Performed By: #### L 100.0500, L500.4050 ####[facility] [address] [place], [address] Hematocrit (Bld) [Volume fraction] 35.3 % Low 40-54 [facility] Comment on above: Performed By: #### L 100.0500, L500.4050 ####[facility] [address] [place], [address] Hemoglobin (Bld) [Mass/Vol] 11.3 g/dL Low 13.0-16.5 [facility] Comment on above: Performed By: #### L 100.0500, L500.4050 ####[facility] [address] [place], [address] MCH (RBC) [Entitic mass] 29.4 pg Normal 27.0-32.0 [facility] Comment on above: Performed By: #### L 100.0500, L500.4050 ####[facility] [address] [place], [address] MCHC (RBC) [Mass/Vol] 32.0 g/dL Normal 32-36 [facility] Comment on above: Performed By: #### L 100.0500, L500.4050 ####[facility] [address] [place], [address] MCV (RBC) [Entitic vol] 91.7 fL Normal 80-94 [facility] Comment on above: Performed By: #### L 100.0500, L500.4050 ####[facility] [address] [place], [address] Platelet mean volume (Bld) [Entitic vol] 12.6 fL High 6.2-12.0 [facility] Comment on above: Performed By: #### L 100.0500, L500.4050 ####[facility] [address] [place], [address] Platelets (Bld) [#/Vol] 108 10*3/uL Low 150-450 [facility] Comment on above: Performed By: #### L 100.0500, L500.4050 ####[facility] [address] [place], [address] RBC (Bld) [#/Vol] 3.85 10*6/uL Low 4.6-6.2 [facility] Comment on above: Performed By: #### L 100.0500, L500.4050 ####[facility] [address] [place], [address] RDW SD 46.1 fl High 35.1-43.9 [facility] Comment on above: Performed By: #### L 100.0500, L500.4050 ####[facility] [address] [place], [address] WBC (Bld) [#/Vol] 7.1 10*3/uL Normal 4.4-11.0 [facility] Comment on above: Performed By: #### L 100.0500, L500.4050 ####[facility] [address] [place], [address] Carbon dioxide, total [Moles /volume] in Central venous bloodOrdered By: Jose Hay on 11-28-2024 CO2 [Moles/Vol] 23.7 mmol/L 21.0-32.0 [facility] Chloride assayOrdered By: Harsh Hay on 11-28-2024 Chloride [Moles/Vol] 102 mmol/L 98-108 [facility] Comprehensive Metabolic Prof ilon 11-28-2024 Albumin [Mass/Vol] 3.8 g/dL Normal 3.4-4.8 [facility] Comment on above: Performed By: #### L 100.0500, L500.4050 ####[facility] [address] [place], [address] Albumin/Globulin [Mass ratio] 1.4 {ratio} Normal 0.9-2.4 [facility] Comment on above: Performed By: #### L 100.0500, L500.4050 ####[facility] [address] [place], [address] ALK PHOS 93 U/L Normal 40-129 [facility] Comment on above: Performed By: #### L 100.0500, L500.4050 ####[facility] [address] [place] [place], [address] ALT [Catalytic activity/Vol] 27 U/L Normal <=46 [facility] Comment on above: Result Comment: Hemo lysis present, Results??could be affected.?? Performed By: #### L 100.0500, L500.4050 ####[facility] [address] [place], [address] AST [Catalytic activity/Vol] 33 U/L Normal <=37 [facility] Comment on above: Result Comment: Hemo lysis present, Results??could be affected.?? Performed By: #### L 100.0500, L500.4050 ####[facility] [address] [place], [address] Bilirubin [Mass/Vol] 0.78 mg/dL Normal 0.00-1.30 [facility] Comment on above: Performed By: #### L 100.0500, L500.4050 ####[facility] [address] [place], [address] BUN/CRE 15.2 RATIO Normal 10-20 [facility] Comment on above: Performed By: #### L 100.0500, L500.4050 ####[facility] [address] [place], [address] Calcium [Mass/Vol] 9.2 mg/dL Normal 7.6-11.0 [facility] Comment on above: Performed By: #### L 100.0500, L500.4050 ####[facility] [address] [place], [address] Chloride [Moles/Vol] 102 mmol/L Normal 98-108 [facility] Comment on above: Performed By: #### L 100.0500, L500.4050 ####[facility] [address] [place], [address] CO2 [Moles/Vol] 23.7 mmol/L Normal 21.0-32.0 [facility] Comment on above: Performed By: #### L 100.0500, L500.4050 ####[facility] [address] [place], [address] Creatinine [Mass/Vol] 1.93 mg/dL High 0.70-1.20 [facility] Comment on above: Performed By: #### L 100.0500, L500.4050 ####[facility] [address] [place], [address] ECRCL 37.66 ml/min Low 50-250 [facility] Comment on above: Performed By: #### L 100.0500, L500.4050 ####[facility] [address] [place], [address] GAP 13 Normal 5-15 [facility] Comment on above: Performed By: #### L 100.0500, L500.4050 ####[facility] [address] [place], [address] GFR/1.73 sq M.predicted among non-blacks MDRD (S/P/Bld) [Vol rate/Area] 35 mL/min/{1.73_m2} Low >60 [facility] Comment on above: Result Comment: mL/m in/1.73m2 CKD-EPI Creatinine Equation (2020) Performed By: #### L 100.0500, L500.4050 ####[facility] [address] [place], [address] Globulin (S) [Mass/Vol] 2.8 g/dL Normal 2.2-4.2 [facility] Comment on above: Performed By: #### L 100.0500, L500.4050 ####[facility] [address] [place], [address] Glucose [Mass/Vol] 130 mg/dL High 70-99 [facility] Comment on above: Performed By: #### L 100.0500, L500.4050 ####[facility] [address] [place], [address] Potassium [Moles/Vol] 4.4 mmol/L Normal 3.3-5.1 [facility] Comment on above: Result Comment: Hemo lysis present, Results??could be affected.?? Performed By: #### L 100.0500, L500.4050 ####[facility] [address] [place], [address] Sodium [Moles/Vol] 139 mmol/L Normal 133-145 [facility] Comment on above: Performed By: #### L 100.0500, L500.4050 ####[facility] [address] [place], [address] T PROT 6.6 g/dL Normal 5.9-8.4 [facility] Comment on above: Performed By: #### L 100.0500, L500.4050 ####[facility] [address] [place], [address] Urea nitrogen [Mass/Vol] 29 mg/dL High 4-19 [facility] Comment on above: Performed By: #### L 100.0500, L500.4050 ####[facility] [address] [place], [address] Erythrocyte distribution wid th ratioOrdered By: Jose Hay on 11-28-2024 Erythrocyte distribution width (RBC) [Ratio] 13.6 % 11.6-14.6 [facility] Erythrocyte distribution wid th standard deviationOrdered By: Jose Hay on 11-28-2024 Erythrocyte distribution width (RBC) [Ratio] 46.1 fl High 35.1-43.9 [facility] Glomerular filtration rate ( GFR) estimation/1.73 sq m using serum, plasma, or whole bOrdered By: Jose Hay on 11-28-2024 GFR/1.73 sq M.predicted among non-blacks MDRD (S/P/Bld) [Vol rate/Area] 35 mL/min/{1.73_m2} Low >60 [facility] Hematocrit Auto (Bld) [Volum e fraction]Ordered By: Jose Hay on 11-28-2024 Hematocrit (Bld) [Volume fraction] 35.3 % Low 40-54 [facility] Hemoglobin measurementOrdere d By: Jose Hay on 11-28-2024 Hemoglobin (Bld) [Mass/Vol] 11.3 g/dL Low 13.0-16.5 [facility] MCV (mean corpuscular volume ) determinationOrdered By: Jose Hay on 11-28-2024 MCV (RBC) [Entitic vol] 91.7 fL 80-94 [facility] Mean corpuscular hemoglobin (MCH) determinationOrdered By: Jose Hay on 11-28-2024 MCH (RBC) [Entitic mass] 29.4 pg 27.0-32.0 [facility] No Panel InformationOrdered By: Jose Hay on 11-28-2024 33 U/L <38 [facility] Platelet countOrdered By: Harsh Hay on 11-28-2024 Platelets (Bld) [#/Vol] 108 10*3/uL Low 150-450 [facility] Potassium measurement (mass/ volume)Ordered By: Jose Hay on 11-28-2024 Potassium (Unsp spec) [Mass/Vol] 4.4 mmol/L 3.3-5.1 [facility] RBC Auto (Bld) [#/Vol]Ordere d By: Jose Hay on 11-28-2024 RBC (Bld) [#/Vol] 3.85 10*6/uL Low 4.6-6.2 [facility] Serum creatinine measurement (mass/volume)Ordered By: Jose Hay on 11-28-2024 Creatinine [Mass/Vol] 1.93 mg/dL High 0.70-1.20 [facility] Serum globulin measurementOr dered By: Jose Hay on 11-28-2024 Globulin (S) [Mass/Vol] 2.8 g/dL 2.2-4.2 [facility] Serum glucose measurement (m ass/volume)Ordered By: Jose Hay on 11-28-2024 Glucose [Mass/Vol] 130 mg/dL High 70-99 [facility] Serum or plasma alanine guerrero otransferase (ALT) measurementOrdered By: Jose Hay on 11-28-2024 ALT [Catalytic activity/Vol] 27 U/L <47 [facility] Serum or plasma albumin francine urement (mass/volume)Ordered By: Jose Hay on 11-28-2024 Albumin [Mass/Vol] 3.8 g/dL 3.4-4.8 [facility] Serum or plasma albumin/glob ulin mass ratioOrdered By: Jose Hay on 11-28-2024 Albumin/Globulin [Mass ratio] 1.4 {ratio} 0.9-2.4 [facility] Serum or plasma alkaline bell sphatase measurementOrdered By: Jose Hay on 11-28-2024 ALP [Catalytic activity/Vol] 93 U/L 40-129 [facility] Serum or plasma calcium francine urement (mass/volume)Ordered By: Jose Hay on 11-28-2024 Calcium [Mass/Vol] 9.2 mg/dL 7.6-11.0 [facility] Serum or plasma urea nitroge n measurement (mass/volume)Ordered By: Jose Hay on 11-28-2024 Urea nitrogen [Mass/Vol] 29 mg/dL High 4-19 [facility] Sodium levelOrdered By: Ernst Hay on 11-28-2024 Sodium [Moles/Vol] 139 mmol/L 133-145 [facility] Total proteinOrdered By: Emmanuel Hay on 11-28-2024 Protein [Mass/Vol] 6.6 g/dL 5.9-8.4 [facility] White blood cell (WBC) count Ordered By: Jose Hay on 11-28-2024 WBC (Bld) [#/Vol] 7.1 10*3/uL 4.4-11.0 [facility] 12 Lead EKGon 11-27-2024 12 Lead EKG Normal [facility] Cardiac rehabilitation repor tOrdered By: Karrie Arceo on 11-27-2024 Study report [facility] Discharge Instructionon -2 Discharge Instruction Normal [facility] 12 Lead EKGon 11-26-2024 12 Lead EKG Normal [facility] Absolute lymphocyte countOrd ered By: Isael Bernabe on 11-26-2024 Lymphocytes Auto (Unsp spec) [#/Vol] 1.53 10*3/uL 0.83-4.51 [facility] Anion gap in Serum or Plasma Ordered By: Isael Bernabe on 11-26-2024 Anion gap [Moles/Vol] 15 mmol/L 5-15 [facility] Automated lymphocyte count a s percentage of total leukocytesOrdered By: Isael Bernabe on 11-26-2024 Lymphocytes/100 WBC Auto (Unsp spec) 16.7 % Low 19-41 [facility] BUN/creatinine ratioOrdered By: Isael Bernabe on 11-26-2024 Urea nitrogen/Creatinine [Mass ratio] 18.2 mg/mg 10- [facility] Basic Metabolic Profile (BMP )on 11-26-2024 BUN/CRE 18.2 RATIO Normal - [facility] Comment on above: Performed By: #### L 501.4021, L503.7505, L500.2500, L100.0100 ####[facility] [address] [place], [address] Calcium [Mass/Vol] 9.2 mg/dL Normal 7.6-11.0 [facility] Comment on above: Performed By: #### L 501.4021, L503.7505, L500.2500, L100.0100 ####[facility] [address] [place], [address] Chloride [Moles/Vol] 100 mmol/L Normal 98-108 [facility] Comment on above: Performed By: #### L 501.4021, L503.7505, L500.2500, L100.0100 ####[facility] [address] [place], [address] CO2 [Moles/Vol] 21.5 mmol/L Normal 21.0-32.0 [facility] Comment on above: Performed By: #### L 501.4021, L503.7505, L500.2500, L100.0100 ####[facility] [address] [place], [address] Creatinine [Mass/Vol] 2.34 mg/dL High 0.70-1.20 [facility] Comment on above: Performed By: #### L 501.4021, L503.7505, L500.2500, L100.0100 ####[facility] [address] [place], [address] ECRCL 31.97 ml/min Low 50-250 [facility] Comment on above: Performed By: #### L 501.4021, L503.7505, L500.2500, L100.0100 ####[facility] [address] [place], [address] GAP 15 Normal 5-15 [facility] Comment on above: Performed By: #### L 501.4021, L503.7505, L500.2500, L100.0100 ####[facility] [address] [place], [address] GFR/1.73 sq M.predicted among non-blacks MDRD (S/P/Bld) [Vol rate/Area] 28 mL/min/{1.73_m2} Low >60 [facility] Comment on above: Result Comment: mL/m in/1.73m2 CKD-EPI Creatinine Equation (2020) Performed By: #### L 501.4021, L503.7505, L500.2500, L100.0100 ####[facility] [address] [place], [address] Glucose [Mass/Vol] 275 mg/dL High 70-99 [facility] Comment on above: Performed By: #### L 501.4021, L503.7505, L500.2500, L100.0100 ####[facility] [address] [place], [address] Potassium [Moles/Vol] 4.4 mmol/L Normal 3.3-5.1 [facility] Comment on above: Performed By: #### L 501.4021, L503.7505, L500.2500, L100.0100 ####[facility] [address] [place], [address] Sodium [Moles/Vol] 137 mmol/L Normal 133-145 [facility] Comment on above: Performed By: #### L 501.4021, L503.7505, L500.2500, L100.0100 ####[facility] [address] [place], [address] Urea nitrogen [Mass/Vol] 43 mg/dL High 4-19 [facility] Comment on above: Performed By: #### L 501.4021, L503.7505, L500.2500, L100.0100 ####[facility] [address] [place], [address] Basophil percentageOrdered B y: Isael eBrnabe on 11-26-2024 Basophils/100 WBC (Bld) 0.3 % 0-1 [facility] Brain/Head without Contrasto n 11-26-2024 Brain/Head without Contrast Normal [facility] CBC W/Diff, Automatedon 07- Absolute Lymph 1.53 X10 3/uL Normal 0.83-4.51 [facility] Comment on above: Performed By: #### L 501.4021, L503.7505, L500.2500, L100.0100 ####[facility] [address] [place], [address] Absolute Neut 6.6 X10 3/uL Normal 2.0-7.7 [facility] Comment on above: Performed By: #### L 501.4021, L503.7505, L500.2500, L100.0100 ####[facility] [address] [place], [address] Basophils/100 WBC (Bld) 0.3 % Normal 0-1 [facility] Comment on above: Performed By: #### L 501.4021, L503.7505, L500.2500, L100.0100 ####[facility] [address] [place], [address] Eosinophils/100 WBC (Bld) 1.3 % Normal 0-5 [facility] Comment on above: Performed By: #### L 501.4021, L503.7505, L500.2500, L100.0100 ####[facility] [facility] [address] [place], [address] Erythrocyte distribution width (RBC) [Ratio] 13.9 % Normal 11.6-14.6 [facility] Comment on above: Performed By: #### L 501.4021, L503.7505, L500.2500, L100.0100 ####[facility] [address] [place], [address] Hematocrit (Bld) [Volume fraction] 36.7 % Low 40-54 [facility] Comment on above: Performed By: #### L 501.4021, L503.7505, L500.2500, L100.0100 ####[facility] [address] [place], [address] Hemoglobin (Bld) [Mass/Vol] 11.8 g/dL Low 13.0-16.5 [facility] Comment on above: Performed By: #### L 501.4021, L503.7505, L500.2500, L100.0100 ####[facility] [address] [place], [address] IG% 0.400 Normal 0.0-0.9 [facility] Comment on above: Result Comment: IG% - Immature Granulocytes (promyelocytes, myelocytes andmetamyelocytes) > 1% indicates that a LEFT SHIFT is Present. Performed By: #### L 501.4021, L503.7505, L500.2500, L100.0100 ####[facility] [address] [place], [address] Lymphocytes/100 WBC (Bld) 16.7 % Low 19-41 [facility] Comment on above: Performed By: #### L 501.4021, L503.7505, L500.2500, L100.0100 ####[facility] [address] [place], [address] MCH (RBC) [Entitic mass] 29.2 pg Normal 27.0-32.0 [facility] Comment on above: Performed By: #### L 501.4021, L503.7505, L500.2500, L100.0100 ####[facility] [address] [place], [address] MCHC (RBC) [Mass/Vol] 32.2 g/dL Normal 32-36 [facility] Comment on above: Performed By: #### L 501.4021, L503.7505, L500.2500, L100.0100 ####[facility] [address] [place], [address] MCV (RBC) [Entitic vol] 90.8 fL Normal 80-94 [facility] Comment on above: Performed By: #### L 501.4021, L503.7505, L500.2500, L100.0100 ####[facility] [address] [place], [address] Monocytes/100 WBC (Bld) 9.5 % Normal 0-10 [facility] Comment on above: Performed By: #### L 501.4021, L503.7505, L500.2500, L100.0100 ####[facility] [address] [place], [address] Neutrophils/100 WBC (Bld) 71.8 % High 47-70 [facility] Comment on above: Performed By: #### L 501.4021, L503.7505, L500.2500, L100.0100 ####[facility] [address] [place], [address] Nucleated RBC (Bld) [#/Vol] 0 10*3/uL Normal 0-5 [facility] Comment on above: Performed By: #### L 501.4021, L503.7505, L500.2500, L100.0100 ####[facility] [address] [place], [address] Platelet mean volume (Bld) [Entitic vol] 12.8 fL High 6.2-12.0 [facility] Comment on above: Performed By: #### L 501.4021, L503.7505, L500.2500, L100.0100 ####[facility] [address] [place], [address] Platelets (Bld) [#/Vol] 132 10*3/uL Low 150-450 [facility] Comment on above: Performed By: #### L 501.4021, L503.7505, L500.2500, L100.0100 ####[facility] [address] [place], [address] RBC (Bld) [#/Vol] 4.04 10*6/uL Low 4.6-6.2 [facility] Comment on above: Performed By: #### L 501.4021, L503.7505, L500.2500, L100.0100 ####[facility] [address] [place], [address] RDW SD 46.6 fl High 35.1-43.9 [facility] Comment on above: Performed By: #### L 501.4021, L503.7505, L500.2500, L100.0100 ####[facility] [address] [place], [place], [id number] WBC (Bld) [#/Vol] 9.2 10*3/uL Normal 4.4-11.0 [facility] Comment on above: Performed By: #### L 501.4021, L503.7505, L500.2500, L100.0100 ####[facility] [address] [place], [place], [id number] Carbon dioxide, total [Moles /volume] in Central venous bloodOrdered By: Isael Bernabe on 11-26-2024 CO2 [Moles/Vol] 21.5 mmol/L 21.0-32.0 [facility] Chest 1 View (Portable)on Chest 1 View (Portable) Normal [facility] Chloride assayOrdered By: Jaylen Bernabe on 11-26-2024 Chloride [Moles/Vol] 100 mmol/L 98-108 [facility] Emergency Department Summary on 11-26-2024 Emergency Department Summary Normal [facility] Eosinophil percentageOrdered By: Isael Bernabe on 11-26-2024 Eosinophils/100 WBC (Bld) 1.3 % 0-5 [facility] Erythrocyte distribution wid th ratioOrdered By: Isael Bernabe on 11-26-2024 Erythrocyte distribution width (RBC) [Ratio] 13.9 % 11.6-14.6 [facility] Erythrocyte distribution wid th standard deviationOrdered By: Isael Bernabe on 11-26-2024 Erythrocyte distribution width (RBC) [Ratio] 46.6 fl High 35.1-43.9 [facility] Glomerular filtration rate ( GFR) estimation/1.73 sq m using serum, plasma, or whole bOrdered By: Isael Bernabe on 11-26-2024 GFR/1.73 sq M.predicted among non-blacks MDRD (S/P/Bld) [Vol rate/Area] 28 mL/min/{1.73_m2} Low >60 [facility] Hand Min 3 Viewson Hand Min 3 Views Normal [facility] Hematocrit Auto (Bld) [Volum e fraction]Ordered By: Isael Bernabe on 11-26-2024 Hematocrit (Bld) [Volume fraction] 36.7 % Low 40-54 [facility] Hemoglobin measurementOrdere d By: Isael Bernabe on 11-26-2024 Hemoglobin (Bld) [Mass/Vol] 11.8 g/dL Low 13.0-16.5 [facility] Immature granulocytes/100 WB C Auto (Bld)Ordered By: Isael Bernabe on 11-26-2024 Immature granulocytes/100 WBC (Bld) 0.400 % 0.0-0.9 [facility] Knee 4 or More Viewson 11-26 Knee 4 or More Views Normal [facility] Knee 4 or More Views Normal [facility] L501.4021on 11-26-2024 Trop T High Sen 18 ng/L Normal <=22 [facility] Comment on above: Performed By: #### L 501.4021, L503.7505, L500.2500, L100.0100 ####[facility] [address] [place], [address] MCV (mean corpuscular volume ) determinationOrdered By: Isael Bernabe on 11-26-2024 MCV (RBC) [Entitic vol] 90.8 fL 80-94 [facility] Mean corpuscular hemoglobin (MCH) determinationOrdered By: Isael Bernabe on 11-26-2024 MCH (RBC) [Entitic mass] 29.2 pg 27.0-32.0 [facility] Monocyte percentageOrdered B y: Isael Bernabe on 11-26-2024 Monocytes/100 WBC (Bld) 9.5 % 0-10 [facility] Natriuretic peptide.B prohor efrem N-Terminal [Mass/volume] in Serum or PlasmaOrdered By: Isael Bernabe on 11-26-2024 Natriuretic peptide.B prohormone N-Terminal [Mass/Vol] 162 pg/mL <1800 [facility] Neutrophil percentageOrdered By: Isael Bernabe on 11-26-2024 Neutrophils/100 WBC (Bld) 71.8 % High 47-70 [facility] Platelet countOrdered By: Jaylen Bernabe on 11-26-2024 Platelets (Bld) [#/Vol] 132 10*3/uL Low 150-450 [facility] Potassium measurement (mass/ volume)Ordered By: Isael Bernabe on 11-26-2024 Potassium (Unsp spec) [Mass/Vol] 4.4 mmol/L 3.3-5.1 [facility] Pro- Brain NATRIURETIC PEPTI Sharon 11-26-2024 Natriuretic peptide B (Bld) [Mass/Vol] 162 pg/mL Normal <=1800 [facility] Comment on above: Result Comment: Hear t Failure Unlikely: < 300 pg/mLHeart Failure Likely< 50 Years: > 450 pg/mL50-75 Years: > 900 pg/mL>75 Years: > 1800 pg/mL Performed By: #### L 501.4021, L503.7505, L500.2500, L100.0100 ####[facility] [address] [place], [address] RBC Auto (Bld) [#/Vol]Ordere d By: Isael Bernabe on 11-26-2024 RBC (Bld) [#/Vol] 4.04 10*6/uL Low 4.6-6.2 [facility] Serum creatinine measurement (mass/volume)Ordered By: Isael Bernabe on 11-26-2024 Creatinine [Mass/Vol] 2.34 mg/dL High 0.70-1.20 [facility] Serum glucose measurement (m ass/volume)Ordered By: Isael Bernabe on 11-26-2024 Glucose [Mass/Vol] 275 mg/dL High 70-99 [facility] Serum or plasma calcium francine urement (mass/volume)Ordered By: Isael Bernabe on 11-26-2024 Calcium [Mass/Vol] 9.2 mg/dL 7.6-11.0 [facility] Serum or plasma urea nitroge n measurement (mass/volume)Ordered By: Isael Bernabe on 11-26-2024 Urea nitrogen [Mass/Vol] 43 mg/dL High 4-19 [facility] Sodium levelOrdered By: Isael Bernabe on 11-26-2024 Sodium [Moles/Vol] 137 mmol/L 133-145 [facility] Spine Cervical without Contr ason 11-26-2024 Spine Cervical without Contras Normal [facility] Troponin T HS 2 HRon 025 Trop T High Sen 20 ng/L Normal <=22 [facility] Comment on above: Performed By: #### L 499.0042 ####[facility] [address] [place], [place], [id number] Troponin T HS 4 HRon 025 Trop T High Sen Normal <=22 [facility] Comment on above: Result Comment: Canc elled via OM: Order cancelled - Patient discharged Performed By: #### L 499.0043 ####[facility] [address] [place], [place], [id number] Troponin T.cardiac [Mass/vol ume] in Serum or Plasma by High sensitivity methodOrdered By: Isael Bernabe on 11-26-2024 Troponin T.cardiac High sensitivity method [Mass/Vol] 20 ng/L <22 [facility] Troponin T.cardiac High sensitivity method [Mass/Vol] 18 ng/L <22 [facility] White blood cell (WBC) count Ordered By: Isael Bernabe on 11-26-2024 WBC (Bld) [#/Vol] 9.2 10*3/uL 4.4-11.0 [facility] Absolute lymphocyte countOrd ered By: Gustabo Pérez on 11-22-2024 Lymphocytes Auto (Unsp spec) [#/Vol] 1.37 10*3/uL 0.83-4.51 [facility] Anion gap in Serum or Plasma Ordered By: Gustabo Pérez on 11-22-2024 Anion gap [Moles/Vol] 15 mmol/L - [facility] Automated lymphocyte count a s percentage of total leukocytesOrdered By: Gustabo Pérez on 11-22-2024 Lymphocytes/100 WBC Auto (Unsp spec) 16.1 % Low [facility] BUN/creatinine ratioOrdered By: Gustabo Pérez on 11-22-2024 Urea nitrogen/Creatinine [Mass ratio] 15.6 mg/mg 02-19 [facility] Basic Metabolic Profile (BMP )on 11-22-2024 BUN/CRE 15.6 RATIO Normal 02-19 [facility] Comment on above: Performed By: #### L 100.0100, L500.2500, L503.7505 ####[facility] [address] [place], [address] Calcium [Mass/Vol] 9.1 mg/dL Normal 7.6-11.0 [facility] Comment on above: Performed By: #### L 100.0100, L500.2500, L503.7505 ####[facility] [address] [place], [address] Chloride [Moles/Vol] 102 mmol/L Normal 98-108 [facility] Comment on above: Performed By: #### L 100.0100, L500.2500, L503.7505 ####[facility] [address] [place], [address] CO2 [Moles/Vol] 21.6 mmol/L Normal 21.0-32.0 [facility] Comment on above: Performed By: #### L 100.0100, L500.2500, L503.7505 ####[facility] [address] [place], [address] Creatinine [Mass/Vol] 2.51 mg/dL High 0.70-1.20 [facility] Comment on above: Performed By: #### L 100.0100, L500.2500, L503.7505 ####[facility] [address] [place], [address] GAP 15 Normal 5-15 [facility] Comment on above: Performed By: #### L 100.0100, L500.2500, L503.7505 ####[facility] [address] [place], [address] GFR/1.73 sq M.predicted among non-blacks MDRD (S/P/Bld) [Vol rate/Area] 25 mL/min/{1.73_m2} Low >60 [facility] Comment on above: Result Comment: mL/m in/1.73m2 CKD-EPI Creatinine Equation (2020) Performed By: #### L 100.0100, L500.2500, L503.7505 ####[facility] [address] [place], [address] Glucose [Mass/Vol] 262 mg/dL High 70-99 [facility] Comment on above: Performed By: #### L 100.0100, L500.2500, L503.7505 ####[facility] [address] [place], [address] Potassium [Moles/Vol] 4.8 mmol/L Normal 3.3-5.1 [facility] Comment on above: Performed By: #### L 100.0100, L500.2500, L503.7505 ####[facility] [address] [place], [address] Sodium [Moles/Vol] 139 mmol/L Normal 133-145 [facility] Comment on above: Performed By: #### L 100.0100, L500.2500, L503.7505 ####[facility] [address] [place], [address] Urea nitrogen [Mass/Vol] 39 mg/dL High 4-19 [facility] Comment on above: Performed By: #### L 100.0100, L500.2500, L503.7505 ####[facility] [address] [place], [address] Basophil percentageOrdered B y: Gustabo Beto on 11-22-2024 Basophils/100 WBC (Bld) 0.4 % 0-1 [facility] CBC W/Diff, Automatedon 11-01 Absolute Lymph 1.37 X10 3/uL Normal 0.83-4.51 [facility] Comment on above: Performed By: #### L 100.0100, L500.2500, L503.7505 ####[facility] [address] [place], [address] Absolute Neut 6.2 X10 3/uL Normal 2.0-7.7 [facility] Comment on above: Performed By: #### L 100.0100, L500.2500, L503.7505 ####[facility] [address] [place], [address] Basophils/100 WBC (Bld) 0.4 % Normal 0-1 [facility] Comment on above: Performed By: #### L 100.0100, L500.2500, L503.7505 ####[facility] [address] [place], [address] Eosinophils/100 WBC (Bld) 1.5 % Normal 0-5 [facility] Comment on above: Performed By: #### L 100.0100, L500.2500, L503.7505 ####[facility] [address] [place], [address] Erythrocyte distribution width (RBC) [Ratio] 13.8 % Normal 11.6-14.6 [facility] Comment on above: Performed By: #### L 100.0100, L500.2500, L503.7505 ####[facility] [address] [place], [address] Hematocrit (Bld) [Volume fraction] 36.5 % Low 40-54 [facility] Comment on above: Performed By: #### L 100.0100, L500.2500, L503.7505 ####[facility] [address] [place], [address] Hemoglobin (Bld) [Mass/Vol] 11.8 g/dL Low 13.0-16.5 [facility] Comment on above: Performed By: #### L 100.0100, L500.2500, L503.7505 ####[facility] [address] [place], [address] IG% 0.500 Normal 0.0-0.9 [facility] Comment on above: Result Comment: IG% - Immature Granulocytes (promyelocytes, myelocytes andmetamyelocytes) > 1% indicates that a LEFT SHIFT is Present. Performed By: #### L 100.0100, L500.2500, L503.7505 ####[facility] [address] [place], [address] Lymphocytes/100 WBC (Bld) 16.1 % Low 19-41 [facility] Comment on above: Performed By: #### L 100.0100, L500.2500, L503.7505 ####[facility] [address] [place], [address] MCH (RBC) [Entitic mass] 29.6 pg Normal 27.0-32.0 [facility] Comment on above: Performed By: #### L 100.0100, L500.2500, L503.7505 ####[facility] [address] [place], [address] MCHC (RBC) [Mass/Vol] 32.3 g/dL Normal 32-36 [facility] Comment on above: Performed By: #### L 100.0100, L500.2500, L503.7505 ####[facility] [address] [place], [address] MCV (RBC) [Entitic vol] 91.7 fL Normal 80-94 [facility] Comment on above: Performed By: #### L 100.0100, L500.2500, L503.7505 ####[facility] [address] [place], [address] Monocytes/100 WBC (Bld) 9.0 % Normal 0-10 [facility] Comment on above: Performed By: #### L 100.0100, L500.2500, L503.7505 ####[facility] [address] [place], [address] Neutrophils/100 WBC (Bld) 72.5 % High 47-70 [facility] Comment on above: Performed By: #### L 100.0100, L500.2500, L503.7505 ####[facility] [address] [place], [address] Nucleated RBC (Bld) [#/Vol] 0 10*3/uL Normal 0-5 [facility] Comment on above: Performed By: #### L 100.0100, L500.2500, L503.7505 ####[facility] [address] [place], [address] Platelet mean volume (Bld) [Entitic vol] 13.0 fL High 6.2-12.0 [facility] Comment on above: Performed By: #### L 100.0100, L500.2500, L503.7505 ####[facility] [address] [place], [address] Platelets (Bld) [#/Vol] 148 10*3/uL Low 150-450 [facility] Comment on above: Performed By: #### L 100.0100, L500.2500, L503.7505 ####[facility] [address] [place], [address] RBC (Bld) [#/Vol] 3.98 10*6/uL Low 4.6-6.2 [facility] Comment on above: Performed By: #### L 100.0100, L500.2500, L503.7505 ####[facility] [address] [place], [address] RDW SD 47.0 fl High 35.1-43.9 [facility] Comment on above: Performed By: #### L 100.0100, L500.2500, L503.7505 ####[facility] [address] [place], [address] WBC (Bld) [#/Vol] 8.5 10*3/uL Normal 4.4-11.0 [facility] Comment on above: Performed By: #### L 100.0100, L500.2500, L503.5024 ####[facility] [address] [place], [address] Carbon dioxide, total [Moles /volume] in Central venous bloodOrdered By: Gustabo Pérez on 11-22-2024 CO2 [Moles/Vol] 21.6 mmol/L 21.0-32.0 [facility] Cardiology Visit Reporton Cardiology Visit Report Normal [facility] Chest PA and Lateralon 11-22 Chest PA and Lateral Normal [facility] Chloride assayOrdered By: Lydia Pérez on 11-22-2024 Chloride [Moles/Vol] 102 mmol/L 98-108 [facility] Eosinophil percentageOrdered By: Gustabo Pérez on 11-22-2024 Eosinophils/100 WBC (Bld) 1.5 % 0-5 [facility] Erythrocyte distribution wid th ratioOrdered By: Gustabo Pérez on 11-22-2024 Erythrocyte distribution width (RBC) [Ratio] 13.8 % 11.6-14.6 [facility] Erythrocyte distribution wid th standard deviationOrdered By: Gustabo Pérez on 11-22-2024 Erythrocyte distribution width (RBC) [Ratio] 47.0 fl High 35.1-43.9 [facility] Glomerular filtration rate ( GFR) estimation/1.73 sq m using serum, plasma, or whole bOrdered By: Gustabo Pérez on 11-22-2024 GFR/1.73 sq M.predicted among non-blacks MDRD (S/P/Bld) [Vol rate/Area] 25 mL/min/{1.73_m2} Low >60 [facility] Hematocrit Auto (Bld) [Volum e fraction]Ordered By: Gustabo Pérez on 11-22-2024 Hematocrit (Bld) [Volume fraction] 36.5 % Low 40-54 [facility] Hemoglobin measurementOrdere d By: Gustabo Pérez on 11-22-2024 Hemoglobin (Bld) [Mass/Vol] 11.8 g/dL Low 13.0-16.5 [facility] Immature granulocytes/100 WB C Auto (Bld)Ordered By: Gustabo Pérez on 11-22-2024 Immature granulocytes/100 WBC (Bld) 0.500 % 0.0-0.9 [facility] L503.7505on 11-22-2024 Natriuretic peptide B (Bld) [Mass/Vol] 188 pg/mL Normal <=1800 [facility] Comment on above: Result Comment: Hear t Failure Unlikely: < 300 pg/mLHeart Failure Likely< 50 Years: > 450 pg/mL50-75 Years: > 900 pg/mL>75 Years: > 1800 pg/mL Performed By: #### L 100.0100, L500.2500, L503.7505 ####[facility] [address] [place], [address] MCV (mean corpuscular volume ) determinationOrdered By: Gustabo Pérez on 11-22-2024 MCV (RBC) [Entitic vol] 91.7 fL 80-94 [facility] Mean corpuscular hemoglobin (MCH) determinationOrdered By: Gustabo Pérez on 11-22-2024 MCH (RBC) [Entitic mass] 29.6 pg 27.0-32.0 [facility] Monocyte percentageOrdered B y: Gsutabo Pérez on 11-22-2024 Monocytes/100 WBC (Bld) 9.0 % 0-10 [facility] Natriuretic peptide.B prohor efrem N-Terminal [Mass/volume] in Serum or PlasmaOrdered By: Gustabo Pérez on 11-22-2024 Natriuretic peptide.B prohormone N-Terminal [Mass/Vol] 188 pg/mL <1800 [facility] Neutrophil percentageOrdered By: Gustabo Pérez on 11-22-2024 Neutrophils/100 WBC (Bld) 72.5 % High 47-70 [facility] Platelet countOrdered By: Lydia Pérez on 11-22-2024 Platelets (Bld) [#/Vol] 148 10*3/uL Low 150-450 [facility] Potassium measurement (mass/ volume)Ordered By: Gustabo Pérez on 11-22-2024 Potassium (Unsp spec) [Mass/Vol] 4.8 mmol/L 3.3-5.1 [facility] RBC Auto (Bld) [#/Vol]Ordere d By: Gustabo Pérez on 11-22-2024 RBC (Bld) [#/Vol] 3.98 10*6/uL Low 4.6-6.2 [facility] Serum creatinine measurement (mass/volume)Ordered By: Gustabo Pérez on 11-22-2024 Creatinine [Mass/Vol] 2.51 mg/dL High 0.70-1.20 [facility] Serum glucose measurement (m ass/volume)Ordered By: Gustabo Pérez on 11-22-2024 Glucose [Mass/Vol] 262 mg/dL High 70-99 [facility] Serum or plasma calcium francine urement (mass/volume)Ordered By: Gustabo Pérez on 11-22-2024 Calcium [Mass/Vol] 9.1 mg/dL 7.6-11.0 [facility] Serum or plasma urea nitroge n measurement (mass/volume)Ordered By: Gustabo Pérez on 11-22-2024 Urea nitrogen [Mass/Vol] 39 mg/dL High 4-19 [facility] Sodium levelOrdered By: Gustabo Pérez on 11-22-2024 Sodium [Moles/Vol] 139 mmol/L 133-145 [facility] White blood cell (WBC) count Ordered By: Gustabo Pérez on 11-22-2024 WBC (Bld) [#/Vol] 8.5 10*3/uL 4.4-11.0 [facility] Shoulder min 2 Viewson 11-20 Shoulder min 2 Views Normal [facility] Cardiovascular stress test r eportOrdered By: Jose Hay on 11-13-2024 Study report [facility] [address] [place] [address] MR#: [id number] Acct: [id number] Name: ERIBERTO RICO Rep #: [id number] : 1945 79 From: Jose Hay MD Primary Care: Dr. 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 This note was generated with [employer] software. It may contain incorrectwords, spelling, and punctuation that were not noted in checking the note beforesigning. 11/13/24 1539 Date _ Jose Hay MD CC: YRN Pérez; Dr. Marycarmen Rodriguez, DO ~ Date Dictated: 11/13/241536 Date Transcribed: 11/13/241536 Director Of Product Design: HARSH Alvarez [facility] Work Phone: Stress Reporton 11-13-2024 Stress Report Normal [facility] Echo Complete W/ Contraston 11-10-2024 Echo Complete W/ Contrast Normal [facility] Echocardiogram study reportO rdered By: Lance Rodriguez on 11-10-2024 Study report [facility] [facility] [address] [place] [address] Echo Complete W/ Contrast 11/10/24 0920 MR#: [id number] Acct: [id number] Name: ERIBERTO RICO Rep #:[id number] : 1945 79 From: Lance Hooker Attending Dr: YRN Herr Sta tus: LENNOX CLI Ordering Dr: Maren Olivas Driss e: 11/10/24 Location: [facility] Sex: M C Admitted: Reason For [...] ~ Date Dictated: 11/10/24919 Date Transcribed: 11/10/241212 Director Of Product Design: Signed [facility] Absolute lymphocyte countOrd ered By: Marycarmen Rodriguez on 11-09-2024 Lymphocytes Auto (Unsp spec) [#/Vol] 1.23 10*3/uL 0.83-4.51 [facility] Absolute neutrophil countOrd ered By: Marycarmen Rodriguez on 11-09-2024 Neutrophils (Bld) [#/Vol] 4.1 10*3/uL 2.0-7.7 [facility] Anion gap in Serum or Plasma Ordered By: Marycarmen Rodriguez on 11-09-2024 Anion gap [Moles/Vol] 14 mmol/L - [facility] Automated lymphocyte count a s percentage of total leukocytesOrdered By: Marycarmen Rodriguez on 11-09-2024 Lymphocytes/100 WBC Auto (Unsp spec) 19.9 % [facility] BUN/creatinine ratioOrdered By: Marycarmen Rodriguez on 11-09-2024 Urea nitrogen/Creatinine [Mass ratio] 19.7 mg/mg - [facility] Basic Metabolic Profile (BMP )on 11-09-2024 BUN/CRE 19.7 RATIO Normal - [facility] Comment on above: Performed By: #### L 503.7505, L500.2500, L100.0100 ####[facility] [address] [place], [address] Calcium [Mass/Vol] 9.3 mg/dL Normal 7.6-11.0 [facility] Comment on above: Performed By: #### L 503.7505, L500.2500, L100.0100 ####[facility] [address] [place], [address] Chloride [Moles/Vol] 102 mmol/L Normal 98-108 [facility] Comment on above: Performed By: #### L 503.7505, L500.2500, L100.0100 ####[facility] [address] [place], [address] CO2 [Moles/Vol] 22.5 mmol/L Normal 21.0-32.0 [facility] Comment on above: Performed By: #### L 503.7505, L500.2500, L100.0100 ####[facility] [address] [place], [address] Creatinine [Mass/Vol] 2.49 mg/dL High 0.70-1.20 [facility] Comment on above: Performed By: #### L 503.7505, L500.2500, L100.0100 ####[facility] [address] [place], [address] GAP 14 Normal 5-15 [facility] Comment on above: Performed By: #### L 503.7505, L500.2500, L100.0100 ####[facility] [address] [place], [address] GFR/1.73 sq M.predicted among non-blacks MDRD (S/P/Bld) [Vol rate/Area] 26 mL/min/{1.73_m2} Low >60 [facility] Comment on above: Result Comment: mL/m in/1.73m2 CKD-EPI Creatinine Equation (2020) Performed By: #### L 503.7505, L500.2500, L100.0100 ####[facility] [address] [place], [address] Glucose [Mass/Vol] 169 mg/dL High 70-99 [facility] Comment on above: Performed By: #### L 503.7505, L500.2500, L100.0100 ####[facility] [address] [place], [address] Potassium [Moles/Vol] 4.6 mmol/L Normal 3.3-5.1 [facility] Comment on above: Performed By: #### L 503.7505, L500.2500, L100.0100 ####[facility] [address] [place], [address] Sodium [Moles/Vol] 139 mmol/L Normal 133-145 [facility] Comment on above: Performed By: #### L 503.7505, L500.2500, L100.0100 ####[facility] [address] [place], [address] Urea nitrogen [Mass/Vol] 49 mg/dL High 4-19 [facility] Comment on above: Performed By: #### L 503.7505, L500.2500, L100.0100 ####[facility] [address] [place], [address] Basophil percentageOrdered B y: Marycarmen Rodriguez on 11-09-2024 Basophils/100 WBC (Bld) 0.3 % 0-1 [facility] CBC W/Diff, Automatedon 10-31 Absolute Lymph 1.23 X10 3/uL Normal 0.83-4.51 [facility] Comment on above: Performed By: #### L 503.7505, L500.2500, L100.0100 ####[facility] [address] [place], [address] Absolute Neut 4.1 X10 3/uL Normal 2.0-7.7 [facility] Comment on above: Performed By: #### L 503.7505, L500.2500, L100.0100 ####[facility] [address] [place], [address] Basophils/100 WBC (Bld) 0.3 % Normal 0-1 [facility] Comment on above: Performed By: #### L 503.7505, L500.2500, L100.0100 ####[facility] [address] [place], [address] Eosinophils/100 WBC (Bld) 2.4 % Normal 0-5 [facility] Comment on above: Performed By: #### L 503.7505, L500.2500, L100.0100 ####[facility] [address] [place], [address] Erythrocyte distribution width (RBC) [Ratio] 14.1 % Normal 11.6-14.6 [facility] Comment on above: Performed By: #### L 503.7505, L500.2500, L100.0100 ####[facility] [address] [place], [address] Hematocrit (Bld) [Volume fraction] 38.2 % Low 40-54 [facility] Comment on above: Performed By: #### L 503.7505, L500.2500, L100.0100 ####[facility] [address] [place], [address] Hemoglobin (Bld) [Mass/Vol] 12.2 g/dL Low 13.0-16.5 [facility] Comment on above: Performed By: #### L 503.7505, L500.2500, L100.0100 ####[facility] [address] [place], [address] IG% 0.500 Normal 0.0-0.9 [facility] Comment on above: Result Comment: IG% - Immature Granulocytes (promyelocytes, myelocytes andmetamyelocytes) > 1% indicates that a LEFT SHIFT is Present. Performed By: #### L 503.7505, L500.2500, L100.0100 ####[facility] [address] [place], [address] Lymphocytes/100 WBC (Bld) 19.9 % Normal 19-41 [facility] Comment on above: Performed By: #### L 503.7505, L500.2500, L100.0100 ####[facility] [address] [place], [address] MCH (RBC) [Entitic mass] 29.6 pg Normal 27.0-32.0 [facility] Comment on above: Performed By: #### L 503.7505, L500.2500, L100.0100 ####[facility] [address] [place], [address] MCHC (RBC) [Mass/Vol] 31.9 g/dL Low 32-36 [facility] Comment on above: Performed By: #### L 503.7505, L500.2500, L100.0100 ####[facility] [address] [place], [address] MCV (RBC) [Entitic vol] 92.7 fL Normal 80-94 [facility] Comment on above: Performed By: #### L 503.7505, L500.2500, L100.0100 ####[facility] [address] [place], [address] Monocytes/100 WBC (Bld) 10.4 % High 0-10 [facility] Comment on above: Performed By: #### L 503.7505, L500.2500, L100.0100 ####[facility] [address] [place], [address] Neutrophils/100 WBC (Bld) 66.5 % Normal 47-70 [facility] Comment on above: Performed By: #### L 503.7505, L500.2500, L100.0100 ####[facility] [address] [place], [address] Nucleated RBC (Bld) [#/Vol] 0 10*3/uL Normal 0-5 [facility] Comment on above: Performed By: #### L 503.7505, L500.2500, L100.0100 ####[facility] [address] [place], [address] Platelet mean volume (Bld) [Entitic vol] 12.7 fL High 6.2-12.0 [facility] Comment on above: Performed By: #### L 503.7505, L500.2500, L100.0100 ####[facility] [address] [place], [address] Platelets (Bld) [#/Vol] 120 10*3/uL Low 150-450 [facility] Comment on above: Performed By: #### L 503.7505, L500.2500, L100.0100 ####[facility] [address] [place], [address] RBC (Bld) [#/Vol] 4.12 10*6/uL Low 4.6-6.2 [facility] Comment on above: Performed By: #### L 503.7505, L500.2500, L100.0100 ####[facility] [address] [place], [address] RDW SD 47.8 fl High 35.1-43.9 [facility] Comment on above: Performed By: #### L 503.7505, L500.2500, L100.0100 ####[facility] [address] [place], [address] WBC (Bld) [#/Vol] 6.2 10*3/uL Normal 4.4-11.0 [facility] Comment on above: Performed By: #### L 503.7505, L500.2500, L100.0100 ####[facility] [address] [place], [address] Carbon dioxide, total [Moles /volume] in Central venous bloodOrdered By: Marycarmen Rodriguez on 11-09-2024 CO2 [Moles/Vol] 22.5 mmol/L 21.0-32.0 [facility] Chloride assayOrdered By: Ap Rodriguez on 11-09-2024 Chloride [Moles/Vol] 102 mmol/L 98-108 [facility] Eosinophil percentageOrdered By: Marycarmen Rodriguez on 11-09-2024 Eosinophils/100 WBC (Bld) 2.4 % 0-5 [facility] Erythrocyte distribution wid th ratioOrdered By: Marycarmen Rodriguez on 11-09-2024 Erythrocyte distribution width (RBC) [Ratio] 14.1 % 11.6-14.6 [facility] Erythrocyte distribution wid th standard deviationOrdered By: Marycarmen Rodriguez on 11-09-2024 Erythrocyte distribution width (RBC) [Ratio] 47.8 fl High 35.1-43.9 [facility] Glomerular filtration rate ( GFR) estimation/1.73 sq m using serum, plasma, or whole bOrdered By: Marycarmen Rodriguez on 11-09-2024 GFR/1.73 sq M.predicted among non-blacks MDRD (S/P/Bld) [Vol rate/Area] 26 mL/min/{1.73_m2} Low >60 [facility] Comment on above: mL/min/1.73m2 CKD-EP I Creatinine Equation (2020) Hematocrit Auto (Bld) [Volum e fraction]Ordered By: Marycarmen Rodriguez on 11-09-2024 Hematocrit (Bld) [Volume fraction] 38.2 % Low 40-54 [facility] Hemoglobin measurementOrdere d By: Marycarmen Rodriguez on 11-09-2024 Hemoglobin (Bld) [Mass/Vol] 12.2 g/dL Low 13.0-16.5 [facility] Immature granulocytes/100 WB C Auto (Bld)Ordered By: Marycarmen Rodriguez on 11-09-2024 Immature granulocytes/100 WBC (Bld) 0.500 % 0.0-0.9 [facility] Comment on above: IG% - Immature Granu locytes (promyelocytes, myelocytes and metamyelocytes) > 1% indicates that a LEFT SHIFT is Present. L503.7505on 07-10-2025 Natriuretic peptide B (Bld) [Mass/Vol] 91 pg/mL Normal <=1800 [facility] Comment on above: Result Comment: Hear t Failure Unlikely: < 300 pg/mLHeart Failure Likely< 50 Years: > 450 pg/mL50-75 Years: > 900 pg/mL>75 Years: > 1800 pg/mL Performed By: #### L 503.7505, L500.2500, L100.0100 ####[facility] [address] [place], [address] MCV (mean corpuscular volume ) determinationOrdered By: Marycarmen Rodriguez on 11-09-2024 MCV (RBC) [Entitic vol] 92.7 fL 80-94 [facility] Mean corpuscular hemoglobin (MCH) determinationOrdered By: Marycarmen Rodriguez on 11-09-2024 MCH (RBC) [Entitic mass] 29.6 pg 27.0-32.0 [facility] Mean corpuscular hemoglobin concentration (MCHC) determinationOrdered By: Marycarmen Rodriguez on 11-09-2024 MCHC (RBC) [Mass/Vol] 31.9 g/dL Low 32-36 [facility] Mean platelet volume determi nationOrdered By: Marycarmen Rodriguez on 11-09-2024 Platelet mean volume (Bld) [Entitic vol] 12.7 fL High 6.2-12.0 [facility] Monocyte percentageOrdered B y: Marycarmen Rodriguez on 11-09-2024 Monocytes/100 WBC (Bld) 10.4 % High 0-10 [facility] Natriuretic peptide.B prohor efrem N-Terminal [Mass/volume] in Serum or PlasmaOrdered By: Marycarmen Rodriguez on 11-09-2024 Natriuretic peptide.B prohormone N-Terminal [Mass/Vol] 91 pg/mL <1800 [facility] Comment on above: Heart Failure Unlike ly: < 300 pg/mLHeart Failure Likely< 50 Years: > 450 pg/mL50-75 Years: > 900 pg/mL>75 Years: > 1800 pg/mL Neutrophil percentageOrdered By: Marycarmen Rodriguez on 11-09-2024 Neutrophils/100 WBC (Bld) 66.5 % 47-70 [facility] Nucleated red blood cell per centageOrdered By: Marycarmen Rodriguez on 11-09-2024 Nucleated RBC/100 WBC (Bld) [Ratio] 0 % 0-5 [facility] Platelet countOrdered By: Ap Rodriguez on 11-09-2024 Platelets (Bld) [#/Vol] 120 10*3/uL Low 150-450 [facility] Potassium measurement (mass/ volume)Ordered By: Marycarmen Rodriguez on 11-09-2024 Potassium (Unsp spec) [Mass/Vol] 4.6 mmol/L 3.3-5.1 [facility] RBC Auto (Bld) [#/Vol]Ordere d By: Marycarmen Rodriguez on 11-09-2024 RBC (Bld) [#/Vol] 4.12 10*6/uL Low 4.6-6.2 [facility] Serum creatinine measurement (mass/volume)Ordered By: Marycarmen Rodriguez on 11-09-2024 Creatinine [Mass/Vol] 2.49 mg/dL High 0.70-1.20 [facility] Serum glucose measurement (m ass/volume)Ordered By: Marycarmen Rodriguez on 11-09-2024 Glucose [Mass/Vol] 169 mg/dL High 70-99 [facility] Serum or plasma calcium francine urement (mass/volume)Ordered By: Marycarmen Rodriguez on 11-09-2024 Calcium [Mass/Vol] 9.3 mg/dL 7.6-11.0 [facility] Serum or plasma urea nitroge n measurement (mass/volume)Ordered By: Marycarmen Rodriguez on 11-09-2024 Urea nitrogen [Mass/Vol] 49 mg/dL High 4-19 [facility] Sodium levelOrdered By: Marycarmen Rodriguez on 11-09-2024 Sodium [Moles/Vol] 139 mmol/L 133-145 [facility] White blood cell (WBC) count Ordered By: Marycarmen Rodriguez on 11-09-2024 WBC (Bld) [#/Vol] 6.2 10*3/uL 4.4-11.0 [facility] Pulmonary Visit Reporton Pulmonary Visit Report Normal [facility] Cardiology Visit Reporton Cardiology Visit Report Normal [facility] L3410.9992on 10-23-2024 [facility] COMMENT Normal . [facility] Comment on above: Order Comment: [id number] 0MED TOX Result Comment: Test Ordered: [id number] E21-Gbhrmv+SZ8Wxcagcvhvffe Screen, Urine Negative ng/mL UI Reference Range: Nfyyxg=088Hobbdbrpraw test includes Amphetamine and Methamphetamine.Barbiturates Negative ng/mL UI Reference Range: Xrlbno=949Soozlpupjlaxvrm Negative ng/mL UI Reference Range: Ptptyl=171Fnmvgds (Metab.), Urine Negative ng/mL UI Reference Range: Mddunn=366Mvuxywv Note: ng/mL UI See Final Results Reference Range: Epipmd=398Lhpwsx test includes Codeine, Morphine, Hydromorphone, Hydrocodone.Opiates Positive [A ] UI Reference Range: Atjzwz=201Ozdotp test includes Codeine, Morphine, Hydromorphone, Hydrocodone.Codeine Negative UI Reference Range: Ufhhto=387Ugmnjqgl Negative UI Reference Range: Hwogbh=483Pwngiqenuzjcr Negative UI Reference Range: Kuvxgz=611Dkwghrfckml Positive [A ] UI Reference Range: .Hydrocodone Conf, MS, UR 349 ng/mL UI Reference Range: Qwzftr=5021-Jpxumpqhhjpdwf, Urine Negative ng/mL UI Reference Range: Cutoff=10Oxycodone/Oxymorphone, Urine Negative ng/mL UI Reference Range: Sgwdnc=902Esfw includes Oxycodone and OxymorphonePCP, Urine Negative ng/mL UI Reference Range: Cutoff=25Methadone Screen, Urine Negative ng/mL UI Reference Range: Iqouvn=058Hnhdhwmfqsfk, Urine Negative ng/mL UI Reference Range: Dhcpxa=400Wefbdiag, Urine Negative ng/mL UI Reference Range: Cutoff=2.0Test includes Fentanyl and NorfentanylThis test was developed and its performance characteristicsdetermined by [facility]. It has not been cleared orapproved by the Food and Drug Administration.Tramadol Negative ng/mL UI Reference Range: Uousfc=851Nullgdegzlebt, Urine Negative ng/mL UI Reference Range: Cutoff=10Creatinine, Urine 36.9 mg/dL UI Reference Range: 20.0-300.0pH, Urine 6.1 UI Reference Range: 4.5-8.9Performed at: UI - [facility]TS [id number] [facility], [place], [place] [id number] Director: Erik Wallis PhD, Phone: [phone] at: [facility] System[facility]w[address] [place], [place] [id number] Director: Bharath Hawthorne PhD, Phone: [phone] Performed By: #### L 3410.9992, L505.5000 ####[facility] [address] [place], [place], [address] Absolute lymphocyte countOrd ered By: Gustabo Pérez on 10-18-2024 Lymphocytes Auto (Unsp spec) [#/Vol] 1.15 10*3/uL 0.83-4.51 [facility] Absolute neutrophil countOrd ered By: Gustabo Pérez on 10-18-2024 Neutrophils (Bld) [#/Vol] 4.6 10*3/uL 2.0-7.7 [facility] Amphetamine detection with 1 000 ng/mL as cutoffOrdered By: Brooks Carpenter on 10-18-2024 Amphetamines Screen method >1000 ng/mL Ql (U) Negative < 200 ng/mL [facility] Anion gap in Serum or Plasma Ordered By: Gustabo Pérez on 10-18-2024 Anion gap [Moles/Vol] 12 mmol/L 5-15 [facility] Automated lymphocyte count a s percentage of total leukocytesOrdered By: Gustabo Pérez on 10-18-2024 Lymphocytes/100 WBC Auto (Unsp spec) 17.4 % Low 19- [facility] BUN/creatinine ratioOrdered By: Gustabo Pérez on 10-18-2024 Urea nitrogen/Creatinine [Mass ratio] 16.4 mg/mg 10- [facility] Basic Metabolic Profile (BMP )on 10-18-2024 BUN/CRE 16.4 RATIO Normal - [facility] Comment on above: Performed By: #### L 500.2500, L100.0100, L503.5615 ####[facility] [address] [place], [address] Calcium [Mass/Vol] 9.0 mg/dL Normal 7.6-11.0 [facility] Comment on above: Performed By: #### L 500.2500, L100.0100, L503.7505 ####[facility] [address] [place], [address] Chloride [Moles/Vol] 103 mmol/L Normal 98-108 [facility] Comment on above: Performed By: #### L 500.2500, L100.0100, L503.7505 ####[facility] [address] [place], [address] CO2 [Moles/Vol] 23.9 mmol/L Normal 21.0-32.0 [facility] Comment on above: Performed By: #### L 500.2500, L100.0100, L503.7505 ####[facility] [address] [place], [address] Creatinine [Mass/Vol] 2.00 mg/dL High 0.70-1.20 [facility] Comment on above: Performed By: #### L 500.2500, L100.0100, L503.7505 ####[facility] [address] [place], [address] GAP 12 Normal 5-15 [facility] Comment on above: Performed By: #### L 500.2500, L100.0100, L503.7505 ####[facility] [address] [place], [address] GFR/1.73 sq M.predicted among non-blacks MDRD (S/P/Bld) [Vol rate/Area] 33 mL/min/{1.73_m2} Low >60 [facility] Comment on above: Result Comment: mL/m in/1.73m2 CKD-EPI Creatinine Equation (2020) Performed By: #### L 500.2500, L100.0100, L503.7505 ####[facility] [address] [place], [address] Glucose [Mass/Vol] 125 mg/dL High 70-99 [facility] Comment on above: Performed By: #### L 500.2500, L100.0100, L503.7505 ####[facility] [address] [place], [address] Potassium [Moles/Vol] 4.8 mmol/L Normal 3.3-5.1 [facility] Comment on above: Performed By: #### L 500.2500, L100.0100, L503.7505 ####[facility] [address] [place], [address] Sodium [Moles/Vol] 139 mmol/L Normal 133-145 [facility] Comment on above: Performed By: #### L 500.2500, L100.0100, L503.7505 ####[facility] [address] [place], [address] Urea nitrogen [Mass/Vol] 33 mg/dL High 4-19 [facility] Comment on above: Performed By: #### L 500.2500, L100.0100, L503.7505 ####[facility] [address] [place], [address] Basophil percentageOrdered B y: Gustabo Pérez on 10-18-2024 Basophils/100 WBC (Bld) 0.2 % 0-1 [facility] CBC W/Diff, Automatedon 10-01 Absolute Lymph 1.15 X10 3/uL Normal 0.83-4.51 [facility] Comment on above: Performed By: #### L 500.2500, L100.0100, L503.7505 ####[facility] [address] [place], [address] Absolute Neut 4.6 X10 3/uL Normal 2.0-7.7 [facility] Comment on above: Performed By: #### L 500.2500, L100.0100, L503.7505 ####[facility] [address] [place], [address] Basophils/100 WBC (Bld) 0.2 % Normal 0-1 [facility] Comment on above: Performed By: #### L 500.2500, L100.0100, L503.7505 ####[facility] [address] [place], [address] Eosinophils/100 WBC (Bld) 2.0 % Normal 0-5 [facility] Comment on above: Performed By: #### L 500.2500, L100.0100, L503.7505 ####[facility] [address] [place], [address] Erythrocyte distribution width (RBC) [Ratio] 14.3 % Normal 11.6-14.6 [facility] Comment on above: Performed By: #### L 500.2500, L100.0100, L503.7505 ####[facility] [address] [place], [address] Hematocrit (Bld) [Volume fraction] 36.4 % Low 40-54 [facility] Comment on above: Performed By: #### L 500.2500, L100.0100, L503.7505 ####[facility] [address] [place], [address] Hemoglobin (Bld) [Mass/Vol] 11.5 g/dL Low 13.0-16.5 [facility] Comment on above: Performed By: #### L 500.2500, L100.0100, L503.7505 ####[facility] [address] [place], [address] IG% 0.600 Normal 0.0-0.9 [facility] Comment on above: Result Comment: IG% - Immature Granulocytes (promyelocytes, myelocytes andmetamyelocytes) > 1% indicates that a LEFT SHIFT is Present. Performed By: #### L 500.2500, L100.0100, L503.7505 ####[facility] [address] [place], [address] Lymphocytes/100 WBC (Bld) 17.4 % Low 19-41 [facility] Comment on above: Performed By: #### L 500.2500, L100.0100, L503.7505 ####[facility] [address] [place], [address] MCH (RBC) [Entitic mass] 29.4 pg Normal 27.0-32.0 [facility] Comment on above: Performed By: #### L 500.2500, L100.0100, L503.7505 ####[facility] [address] [place], [address] MCHC (RBC) [Mass/Vol] 31.6 g/dL Low 32-36 [facility] Comment on above: Performed By: #### L 500.2500, L100.0100, L503.7505 ####[facility] [address] [place], [address] MCV (RBC) [Entitic vol] 93.1 fL Normal 80-94 [facility] Comment on above: Performed By: #### L 500.2500, L100.0100, L503.7505 ####[facility] [address] [place], [address] Monocytes/100 WBC (Bld) 10.4 % High 0-10 [facility] Comment on above: Performed By: #### L 500.2500, L100.0100, L503.7505 ####[facility] [address] [place], [address] Neutrophils/100 WBC (Bld) 69.4 % Normal 47-70 [facility] [facility] Comment on above: Performed By: #### L 500.2500, L100.0100, L503.7505 ####[facility] [address] [place], [address] Nucleated RBC (Bld) [#/Vol] 0 10*3/uL Normal 0-5 [facility] Comment on above: Performed By: #### L 500.2500, L100.0100, L503.7505 ####[facility] [address] [place], [address] Platelet mean volume (Bld) [Entitic vol] 12.9 fL High 6.2-12.0 [facility] Comment on above: Performed By: #### L 500.2500, L100.0100, L503.7505 ####[facility] [address] [place], [address] Platelets (Bld) [#/Vol] 152 10*3/uL Normal 150-450 [facility] Comment on above: Performed By: #### L 500.2500, L100.0100, L503.7505 ####[facility] [address] [place], [address] RBC (Bld) [#/Vol] 3.91 10*6/uL Low 4.6-6.2 [facility] Comment on above: Performed By: #### L 500.2500, L100.0100, L503.7505 ####[facility] [address] [place], [address] RDW SD 48.5 fl High 35.1-43.9 [facility] Comment on above: Performed By: #### L 500.2500, L100.0100, L503.7505 ####[facility] [address] [place], [address] WBC (Bld) [#/Vol] 6.6 10*3/uL Normal 4.4-11.0 [facility] Comment on above: Performed By: #### L 500.2500, L100.0100, L503.7505 ####[facility] [address] [place], [address] Carbon dioxide, total [Moles /volume] in Central venous bloodOrdered By: Gustabo Pérez on 10-18-2024 CO2 [Moles/Vol] 23.9 mmol/L 21.0-32.0 [facility] Chloride assayOrdered By: Lydia Pérez on 10-18-2024 Chloride [Moles/Vol] 103 mmol/L 98-108 [facility] Eosinophil percentageOrdered By: Gustabo Pérez on 10-18-2024 Eosinophils/100 WBC (Bld) 2.0 % 0-5 [facility] Erythrocyte distribution wid th ratioOrdered By: Gustabo Pérez on 10-18-2024 Erythrocyte distribution width (RBC) [Ratio] 14.3 % 11.6-14.6 [facility] Erythrocyte distribution wid th standard deviationOrdered By: Gustabo Pérez on 10-18-2024 Erythrocyte distribution width (RBC) [Ratio] 48.5 fl High 35.1-43.9 [facility] Glomerular filtration rate ( GFR) estimation/1.73 sq m using serum, plasma, or whole bOrdered By: Gustabo Pérez on 10-18-2024 GFR/1.73 sq M.predicted among non-blacks MDRD (S/P/Bld) [Vol rate/Area] 33 mL/min/{1.73_m2} Low >60 [facility] Comment on above: mL/min/1.73m2 CKD-EP I Creatinine Equation (2020) Hematocrit Auto (Bld) [Volum e fraction]Ordered By: Gustabo Pérez on 10-18-2024 Hematocrit (Bld) [Volume fraction] 36.4 % Low 40-54 [facility] Hemoglobin measurementOrdere d By: Gustabo Pérez on 10-18-2024 Hemoglobin (Bld) [Mass/Vol] 11.5 g/dL Low 13.0-16.5 [facility] Immature granulocytes/100 WB C Auto (Bld)Ordered By: Gustabo Pérez on 10-18-2024 Immature granulocytes/100 WBC (Bld) 0.600 % 0.0-0.9 [facility] Comment on above: IG% - Immature Granu locytes (promyelocytes, myelocytes and metamyelocytes) > 1% indicates that a LEFT SHIFT is Present. L503.7505on 10-18-2024 Natriuretic peptide B (Bld) [Mass/Vol] 200 pg/mL Normal <=1800 [facility] Comment on above: Result Comment: Hear t Failure Unlikely: < 300 pg/mLHeart Failure Likely< 50 Years: > 450 pg/mL50-75 Years: > 900 pg/mL>75 Years: > 1800 pg/mL Performed By: #### L 500.2500, L100.0100, L503.7505 ####[facility] [address] [place], [address] MCV (mean corpuscular volume ) determinationOrdered By: Gustabo Pérez on 10-18-2024 MCV (RBC) [Entitic vol] 93.1 fL 80-94 [facility] Mean corpuscular hemoglobin (MCH) determinationOrdered By: Gustabo Pérez on 10-18-2024 MCH (RBC) [Entitic mass] 29.4 pg 27.0-32.0 [facility] Mean corpuscular hemoglobin concentration (MCHC) determinationOrdered By: Gustabo Pérez on 10-18-2024 MCHC (RBC) [Mass/Vol] 31.6 g/dL Low 32-36 [facility] Mean platelet volume determi nationOrdered By: Gustabo Pérez on 10-18-2024 Platelet mean volume (Bld) [Entitic vol] 12.9 fL High 6.2-12.0 [facility] Monocyte percentageOrdered B y: Gustabo Pérez on 10-18-2024 Monocytes/100 WBC (Bld) 10.4 % High 0-10 [facility] Natriuretic peptide.B prohor efrem N-Terminal [Mass/volume] in Serum or PlasmaOrdered By: Gustabo Pérez on 10-18-2024 Natriuretic peptide.B prohormone N-Terminal [Mass/Vol] 200 pg/mL <1800 [facility] Comment on above: Heart Failure Unlike ly: < 300 pg/mLHeart Failure Likely< 50 Years: > 450 pg/mL50-75 Years: > 900 pg/mL>75 Years: > 1800 pg/mL Neutrophil percentageOrdered By: Gustabo Pérez on 10-18-2024 Neutrophils/100 WBC (Bld) 69.4 % 47-70 [facility] No Panel InformationOrdered By: Brooks Carpenetr on 10-18-2024 Urine Buprenorphine Qualitative Negative < 200 ng/mL [facility] Urine Oxycodone Screen Negative < 100 ng/mL [facility] Negative < 200 ng/mL [facility] Nucleated red blood cell per centageOrdered By: Gustabo Pérez on 10-18-2024 Nucleated RBC/100 WBC (Bld) [Ratio] 0 % 0-5 [facility] Platelet countOrdered By: Lydia Pérez on 10-18-2024 Platelets (Bld) [#/Vol] 152 10*3/uL 150-450 [facility] Potassium measurement (mass/ volume)Ordered By: Gustabo Pérez on 10-18-2024 Potassium (Unsp spec) [Mass/Vol] 4.8 mmol/L 3.3-5.1 [facility] Quantitative urine opiates m easurementOrdered By: Brooks Carpenter on 10-18-2024 Opiates Ql (U) Positive < 300 ng/mL [facility] Comment on above: If confirmation test ing is needed, a separate order will be required to send out testing to the reference laboratory. RBC Auto (Bld) [#/Vol]Ordere d By: Gustabo Pérez on 10-18-2024 RBC (Bld) [#/Vol] 3.91 10*6/uL Low 4.6-6.2 [facility] Screening urine fentanyl ritu surementOrdered By: Brooks Carpenter on 10-18-2024 fentaNYL Screen Ql (U) Negative [facility] Serum creatinine measurement (mass/volume)Ordered By: Gustabo Pérez on 10-18-2024 Creatinine [Mass/Vol] 2.00 mg/dL High 0.70-1.20 [facility] Serum glucose measurement (m ass/volume)Ordered By: Gustabo Pérez on 10-18-2024 Glucose [Mass/Vol] 125 mg/dL High 70-99 [facility] Serum or plasma calcium francine urement (mass/volume)Ordered By: Gustabo Pérez on 10-18-2024 Calcium [Mass/Vol] 9.0 mg/dL 7.6-11.0 [facility] Serum or plasma urea nitroge n measurement (mass/volume)Ordered By: Gustabo Pérez on 10-18-2024 Urea nitrogen [Mass/Vol] 33 mg/dL High 4-19 [facility] Sodium levelOrdered By: Gustabo Pérez on 10-18-2024 Sodium [Moles/Vol] 139 mmol/L 133-145 [facility] Urine Drug Screen (VISTA)on 10-18-2024 AMPHETAMINES Negative Normal <1000 ng/mL [facility] Comment on above: Order Comment: PAIN MANAGMENT Performed By: #### L 3410.9992, L505.5000 ####[facility] [address] [facility] [address] BARBITIURATES Negative Normal < 200 ng/mL [facility] Comment on above: Order Comment: PAIN MANAGMENT Performed By: #### L 3410.9992, L505.5000 ####[facility] [address] [facility] [address] BENZODIAZIPINE Negative Normal < 200 ng/mL [facility] Comment on above: Order Comment: PAIN MANAGMENT Performed By: #### L 3410.9992, L505.5000 ####[facility] [address] [facility] [address] BUP Ur Drug Scr Negative Normal < 200 ng/mL [facility] Comment on above: Order Comment: PAIN MANAGMENT Performed By: #### L 3410.9992, L505.5000 ####[facility] [address] [facility] [address] COCAINE Negative Normal < 300 ng/mL [facility] Comment on above: Order Comment: PAIN MANAGMENT Performed By: #### L 3410.9992, L505.5000 ####[facility] [address] [facility] [address] Fentanyl Negative Normal [facility] Comment on above: Order Comment: PAIN MANAGMENT Performed By: #### L 3410.9992, L505.5000 ####[facility] [address] [facility] [address] METHADONE Negative Normal < 300 ng/mL [facility] Comment on above: Order Comment: PAIN MANAGMENT Performed By: #### L 3410.9992, L505.5000 ####[facility] [address] [place], [address] OPIATES Positive Normal < 300 ng/mL [facility] Comment on above: Order Comment: PAIN MANAGMENT Result Comment: If c onfirmation testing is needed, a separate order will berequired to send out testing to the reference laboratory. Performed By: #### L 3410.9992, L505.5000 ####[facility] [address] [facility] [address] OXYCODONE Negative Normal < 100 ng/mL [facility] Comment on above: Order Comment: PAIN MANAGMENT Performed By: #### L 3410.9992, L505.5000 ####[facility] [address] [place] [address] PCP Negative Normal < 25 ng/mL [facility] Comment on above: Order Comment: PAIN MANAGMENT Performed By: #### L 3410.9992, L505.5000 ####[facility] [address] [place], [address] THC Negative Normal < 50 ng/mL [facility] Comment on above: Order Comment: PAIN MANAGMENT Performed By: #### L 3410.9992, L505.5000 ####[facility] [address] [facility] [address] Urine benzodiazepine levelOr dered By: Brooks Basali on 10-18-2024 Benzodiazepines Ql (U) Negative < 200 ng/mL [facility] Urine cocaine levelOrdered B y: Ayman Basali on 10-18-2024 Cocaine Ql (U) Negative < 300 ng/mL [facility] Urine fbkks-9-qhmzxggbrskdht abinol (THC) measurementOrdered By: Brooks Basali on 10-18-2024 Cannabinoids Screen Ql (U) Negative < 50 ng/mL [facility] Urine phencyclidine (PCP) de tectionOrdered By: Brooks Carpenter on 10-18-2024 Phencyclidine Ql (U) Negative < 25 ng/mL [facility] White blood cell (WBC) count Ordered By: Gustabo Pérez on 10-18-2024 WBC (Bld) [#/Vol] 6.6 10*3/uL 4.4-11.0 [facility] Absolute lymphocyte countOrd ered By: Marycarmen ChiuJennifer on 09-29-2024 Lymphocytes Auto (Unsp spec) [#/Vol] 1.35 10*3/uL 0.83-4.51 [facility] Absolute neutrophil countOrd ered By: Marycarmen Rodriguez on 09-29-2024 Neutrophils (Bld) [#/Vol] 9.2 10*3/uL High 2.0-7.7 [facility] Automated lymphocyte count a s percentage of total leukocytesOrdered By: Marycarmen Rodriguez on 09-29-2024 Lymphocytes/100 WBC Auto (Unsp spec) 10.9 % Low 19-41 [facility] Basophil percentageOrdered B y: Marycarmen Rodriguez on 09-29-2024 Basophils/100 WBC (Bld) 0.6 % 0-1 [facility] CBC W/Diff, Automatedon 09-02 Absolute Lymph 1.35 X10 3/uL Normal 0.83-4.51 [facility] Comment on above: Performed By: #### L 503.0106, L100.0100, L503.6550, L503.6150 ####[facility] [address] [place], [address] Absolute Neut 9.2 X10 3/uL High 2.0-7.7 [facility] Comment on above: Performed By: #### L 503.0106, L100.0100, L503.6550, L503.6150 ####[facility] [address] [place], [address] Basophils/100 WBC (Bld) 0.6 % Normal 0-1 [facility] Comment on above: Performed By: #### L 503.0106, L100.0100, L503.6550, L503.6150 ####[facility] [address] [place], [address] Eosinophils/100 WBC (Bld) 0.7 % Normal 0-5 [facility] Comment on above: Performed By: #### L 503.0106, L100.0100, L503.6550, L503.6150 ####[facility] [address] [place], [address] Erythrocyte distribution width (RBC) [Ratio] 14.2 % Normal 11.6-14.6 [facility] Comment on above: Performed By: #### L 503.0106, L100.0100, L503.6550, L503.6150 ####[facility] [address] [place], [address] Hematocrit (Bld) [Volume fraction] 37.4 % Low 40-54 [facility] Comment on above: Performed By: #### L 503.0106, L100.0100, L503.6550, L503.6150 ####[facility] [address] [place], [address] Hemoglobin (Bld) [Mass/Vol] 12.1 g/dL Low 13.0-16.5 [facility] Comment on above: Performed By: #### L 503.0106, L100.0100, L503.6550, L503.6150 ####[facility] [address] [place], [address] IG% 3.600 High 0.0-0.9 [facility] Comment on above: Result Comment: IG% - Immature Granulocytes (promyelocytes, myelocytes andmetamyelocytes) > 1% indicates that a LEFT SHIFT is Present. Performed By: #### L 503.0106, L100.0100, L503.6550, L503.6150 ####[facility] [address] [place], [address] Lymphocytes/100 WBC (Bld) 10.9 % Low 19-41 [facility] Comment on above: Performed By: #### L 503.0106, L100.0100, L503.6550, L503.6150 ####[facility] [address] [place], [address] MCH (RBC) [Entitic mass] 29.6 pg Normal 27.0-32.0 [facility] Comment on above: Performed By: #### L 503.0106, L100.0100, L503.6550, L503.6150 ####[facility] [address] [place], [address] MCHC (RBC) [Mass/Vol] 32.4 g/dL Normal 32-36 [facility] Comment on above: Performed By: #### L 503.0106, L100.0100, L503.6550, L503.6150 ####[facility] [address] [place], [address] MCV (RBC) [Entitic vol] 91.4 fL Normal 80-94 [facility] Comment on above: Performed By: #### L 503.0106, L100.0100, L503.6550, L503.6150 ####[facility] [address] [place], [address] Monocytes/100 WBC (Bld) 9.9 % Normal 0-10 [facility] Comment on above: Performed By: #### L 503.0106, L100.0100, L503.6550, L503.6150 ####[facility] [address] [place], [address] Neutrophils/100 WBC (Bld) 74.3 % High 47-70 [facility] Comment on above: Performed By: #### L 503.0106, L100.0100, L503.6550, L503.6150 ####[facility] [address] [place], [address] Nucleated RBC (Bld) [#/Vol] 0 10*3/uL Normal 0-5 [facility] Comment on above: Performed By: #### L 503.0106, L100.0100, L503.6550, L503.6150 ####[facility] [address] [place], [address] Platelet mean volume (Bld) [Entitic vol] 12.3 fL High 6.2-12.0 [facility] Comment on above: Performed By: #### L 503.0106, L100.0100, L503.6550, L503.6150 ####[facility] [address] [place], [address] Platelets (Bld) [#/Vol] 169 10*3/uL Normal 150-450 [facility] Comment on above: Performed By: #### L 503.0106, L100.0100, L503.6550, L503.6150 ####[facility] [address] [place], [address] RBC (Bld) [#/Vol] 4.09 10*6/uL Low 4.6-6.2 [facility] Comment on above: Performed By: #### L 503.0106, L100.0100, L503.6550, L503.6150 ####[facility] [address] [place], [address] RDW SD 47.4 fl High 35.1-43.9 [facility] Comment on above: Performed By: #### L 503.0106, L100.0100, L503.6550, L503.6150 ####[facility] [address] [place], [address] WBC (Bld) [#/Vol] 12.4 10*3/uL High 4.4-11.0 [facility] Comment on above: Performed By: #### L 503.0106, L100.0100, L503.6550, L503.6150 ####[facility] [address] [place], [place], [address] Eosinophil percentageOrdered By: Marycarmen Rodriguez on 09-29-2024 Eosinophils/100 WBC (Bld) 0.7 % 0-5 [facility] Erythrocyte distribution wid th ratioOrdered By: Marycarmen Rodriguez on 09-29-2024 Erythrocyte distribution width (RBC) [Ratio] 14.2 % 11.6-14.6 [facility] Erythrocyte distribution wid th standard deviationOrdered By: Marycarmen Rodriguez on 09-29-2024 Erythrocyte distribution width (RBC) [Ratio] 47.4 fl High 35.1-43.9 [facility] Ferritinon 09-29-2024 Ferritin [Mass/Vol] 454 ng/mL High 37-417 [facility] Comment on above: Performed By: #### L 503.0106, L100.0100, L503.6550, L503.6150 ####[facility] [address] [place], [place], [address] Hematocrit Auto (Bld) [Volum e fraction]Ordered By: Marycarmen Rodriguez on 09-29-2024 Hematocrit (Bld) [Volume fraction] 37.4 % Low 40-54 [facility] Hemoglobin measurementOrdere d By: Marycarmen Rodriguez on 09-29-2024 Hemoglobin (Bld) [Mass/Vol] 12.1 g/dL Low 13.0-16.5 [facility] Immature granulocytes/100 WB C Auto (Bld)Ordered By: Marycarmen Rodriguez on 09-29-2024 Immature granulocytes/100 WBC (Bld) 3.600 % High 0.0-0.9 [facility] Comment on above: IG% - Immature Granu locytes (promyelocytes, myelocytes and metamyelocytes) > 1% indicates that a LEFT SHIFT is Present. Ironon 09-29-2024 Iron [Mass/Vol] 80 ug/dL Normal 65-175 [facility] Comment on above: Performed By: #### L 503.0106, L100.0100, L503.6537, L503.6188 ####[facility] [address] [place], [address] Iron measurement (mass/mass) Ordered By: Marycarmen Rodriguez on 09-29-2024 Iron (Unsp spec) [Mass/Mass] 80 ug/dL 65-175 [facility] MCV (mean corpuscular volume ) determinationOrdered By: Marycarmen Rodriguez on 09-29-2024 MCV (RBC) [Entitic vol] 91.4 fL 80-94 [facility] Mean corpuscular hemoglobin (MCH) determinationOrdered By: Marycarmen Rodriguez on 09-29-2024 MCH (RBC) [Entitic mass] 29.6 pg 27.0-32.0 [facility] Mean corpuscular hemoglobin concentration (MCHC) determinationOrdered By: Marycarmen Rodriguez on 09-29-2024 MCHC (RBC) [Mass/Vol] 32.4 g/dL 32-36 [facility] Mean platelet volume determi nationOrdered By: Marycarmen Rodriguez on 09-29-2024 Platelet mean volume (Bld) [Entitic vol] 12.3 fL High 6.2-12.0 [facility] Monocyte percentageOrdered B y: Marycarmen Rodriguez on 09-29-2024 Monocytes/100 WBC (Bld) 9.9 % 0-10 [facility] Neutrophil percentageOrdered By: Marycarmen Rodriguez on 09-29-2024 Neutrophils/100 WBC (Bld) 74.3 % High 47-70 [facility] Nucleated red blood cell per centageOrdered By: Marycarmen Rodriguez on 09-29-2024 Nucleated RBC/100 WBC (Bld) [Ratio] 0 % 0-5 [facility] Platelet countOrdered By: Ap Rodriguez on 09-29-2024 Platelets (Bld) [#/Vol] 169 10*3/uL 150-450 [facility] RBC Auto (Bld) [#/Vol]Ordere d By: Marycarmen Rodriguez on 09-29-2024 RBC (Bld) [#/Vol] 4.09 10*6/uL Low 4.6-6.2 [facility] Serum or plasma ferritin ritu surement (mass/volume)Ordered By: Marycarmen Rodriguez on 09-29-2024 Ferritin [Mass/Vol] 454 ng/mL High 37-417 [facility] Vitamin B12on 09-29-2024 Cobalamin (Vitamin B12) [Mass/Vol] 766 pg/mL Normal 180-914 [facility] Comment on above: Performed By: #### L 503.0106, L100.0100, L503.6550, L503.6150 ####[facility] [address] [place], [address] Vitamin B12 ser/plasOrdered By: Marycarmen Rodriguez on 09-29-2024 Cobalamin (Vitamin B12) [Mass/Vol] 766 pg/mL 180-914 [facility] White blood cell (WBC) count Ordered By: Marycarmen Rodriguez on 09-29-2024 WBC (Bld) [#/Vol] 12.4 10*3/uL High 4.4-11.0 [facility] Absolute lymphocyte countOrd ered By: ELIAZAR Olivas on 09-20-2024 Lymphocytes Auto (Unsp spec) [#/Vol] 1.44 10*3/uL 0.83-4.51 [facility] Absolute neutrophil countOrd ered By: ELIAZAR Olivas on 09-20-2024 Neutrophils (Bld) [#/Vol] 6.6 10*3/uL 2.0-7.7 [facility] Automated lymphocyte count a s percentage of total leukocytesOrdered By: ELIAZAR Olivas on 09-20-2024 Lymphocytes/100 WBC Auto (Unsp spec) 15.5 % Low 19-41 [facility] Basophil percentageOrdered B y: ELIAZAR Olivas on 09-20-2024 Basophils/100 WBC (Bld) 0.3 % 0-1 [facility] CBC W/Diff, Automatedon 09-01 Absolute Lymph 1.44 X10 3/uL Normal 0.83-4.51 [facility] Comment on above: Performed By: #### L 100.0100, L503.7505 ####[facility] [address] [place], [address] Absolute Neut 6.6 X10 3/uL Normal 2.0-7.7 [facility] Comment on above: Performed By: #### L 100.0100, L503.7505 ####[facility] [address] [place], [address] Basophils/100 WBC (Bld) 0.3 % Normal 0-1 [facility] Comment on above: Performed By: #### L 100.0100, L503.7505 ####[facility] [address] [place], [address] Eosinophils/100 WBC (Bld) 1.5 % Normal 0-5 [facility] Comment on above: Performed By: #### L 100.0100, L503.7505 ####[facility] [address] [place], [address] Erythrocyte distribution width (RBC) [Ratio] 14.1 % Normal 11.6-14.6 [facility] Comment on above: Performed By: #### L 100.0100, L503.7505 ####[facility] [address] [place], [address] Hematocrit (Bld) [Volume fraction] 34.8 % Low 40-54 [facility] Comment on above: Performed By: #### L 100.0100, L503.7505 ####[facility] [address] [place], [address] Hemoglobin (Bld) [Mass/Vol] 11.1 g/dL Low 13.0-16.5 [facility] Comment on above: Performed By: #### L 100.0100, L503.7505 ####[facility] [address] [place], [address] IG% 0.800 Normal 0.0-0.9 [facility] Comment on above: Result Comment: IG% - Immature Granulocytes (promyelocytes, myelocytes andmetamyelocytes) > 1% indicates that a LEFT SHIFT is Present. Performed By: #### L 100.0100, L503.7505 ####[facility] [address] [place], [address] Lymphocytes/100 WBC (Bld) 15.5 % Low 19-41 [facility] Comment on above: Performed By: #### L 100.0100, L503.7505 ####[facility] [address] [place], [address] MCH (RBC) [Entitic mass] 29.4 pg Normal 27.0-32.0 [facility] Comment on above: Performed By: #### L 100.0100, L503.7505 ####[facility] [address] [place], [address] MCHC (RBC) [Mass/Vol] 31.9 g/dL Low 32-36 [facility] Comment on above: Performed By: #### L 100.0100, L503.7505 ####[facility] [address] [place], [address] MCV (RBC) [Entitic vol] 92.1 fL Normal 80-94 [facility] Comment on above: Performed By: #### L 100.0100, L503.7505 ####[facility] [id number] [place], [address] Monocytes/100 WBC (Bld) 11.1 % High 0-10 [facility] Comment on above: Performed By: #### L 100.0100, L503.7505 ####[facility] [address] [place], [address] Neutrophils/100 WBC (Bld) 70.8 % High 47-70 [facility] Comment on above: Performed By: #### L 100.0100, L503.7505 ####[facility] [address] [place], [address] Nucleated RBC (Bld) [#/Vol] 0 10*3/uL Normal 0-5 [facility] Comment on above: Performed By: #### L 100.0100, L503.7505 ####[facility] [address] [place], [address] Platelet mean volume (Bld) [Entitic vol] 12.6 fL High 6.2-12.0 [facility] Comment on above: Performed By: #### L 100.0100, L503.7505 ####[facility] [address] [place], [address] Platelets (Bld) [#/Vol] 166 10*3/uL Normal 150-450 [facility] Comment on above: Performed By: #### L 100.0100, L503.7505 ####[facility] [address] [place], [address] RBC (Bld) [#/Vol] 3.78 10*6/uL Low 4.6-6.2 [facility] Comment on above: Performed By: #### L 100.0100, L503.7505 ####[facility] [address] [place], [address] RDW SD 48.0 fl High 35.1-43.9 [facility] Comment on above: Performed By: #### L 100.0100, L503.7505 ####[facility] [address] [place], [address] WBC (Bld) [#/Vol] 9.3 10*3/uL Normal 4.4-11.0 [facility] Comment on above: Performed By: #### L 100.0100, L503.7505 ####[facility] [address] [place], [place], [id number] Eosinophil percentageOrdered By: ELIAZAR Olivas on 09-20-2024 Eosinophils/100 WBC (Bld) 1.5 % 0-5 [facility] Erythrocyte distribution wid th ratioOrdered By: ELIAZAR Maren Cheungneelam on 09-20-2024 Erythrocyte distribution width (RBC) [Ratio] 14.1 % 11.6-14.6 [facility] Erythrocyte distribution wid th standard deviationOrdered By: ELIAZAR Olivas on 09-20-2024 Erythrocyte distribution width (RBC) [Ratio] 48.0 fl High 35.1-43.9 [facility] Hematocrit Auto (Bld) [Volum e fraction]Ordered By: ELIAZAR Olivas on 09-20-2024 Hematocrit (Bld) [Volume fraction] 34.8 % Low 40-54 [facility] Hemoglobin measurementOrdere d By: ELIAZAR Olivas on 09-20-2024 Hemoglobin (Bld) [Mass/Vol] 11.1 g/dL Low 13.0-16.5 [facility] Immature granulocytes/100 WB C Auto (Bld)Ordered By: ELIAZAR Olivas on 09-20-2024 Immature granulocytes/100 WBC (Bld) 0.800 % 0.0-0.9 [facility] Comment on above: IG% - Immature Granu locytes (promyelocytes, myelocytes and metamyelocytes) > 1% indicates that a LEFT SHIFT is Present. L503.7505on 09-20-2024 Natriuretic peptide B (Bld) [Mass/Vol] 84 pg/mL Normal <=1800 [facility] Comment on above: Result Comment: Hear t Failure Unlikely: < 300 pg/mLHeart Failure Likely< 50 Years: > 450 pg/mL50-75 Years: > 900 pg/mL>75 Years: > 1800 pg/mL Performed By: #### L 100.0100, L503.7505 ####[facility] [address] [facility] [address] [place], [place], [id number] MCV (mean corpuscular volume ) determinationOrdered By: ELIAZAR Olivas on 09-20-2024 MCV (RBC) [Entitic vol] 92.1 fL 80-94 [facility] Mean corpuscular hemoglobin (MCH) determinationOrdered By: ELIAZAR Olivas on 09-20-2024 MCH (RBC) [Entitic mass] 29.4 pg 27.0-32.0 [facility] Mean corpuscular hemoglobin concentration (MCHC) determinationOrdered By: ELIAZAR Olivas on 09-20-2024 MCHC (RBC) [Mass/Vol] 31.9 g/dL Low 32-36 [facility] Mean platelet volume determi nationOrdered By: ELIAZAR Olivas on 09-20-2024 Platelet mean volume (Bld) [Entitic vol] 12.6 fL High 6.2-12.0 [facility] Monocyte percentageOrdered B y: ELIAZAR Olivas on 09-20-2024 Monocytes/100 WBC (Bld) 11.1 % High 0-10 [facility] Natriuretic peptide.B prohor efrem N-Terminal [Mass/volume] in Serum or PlasmaOrdered By: ELIAZAR Olivas on 09-20-2024 Natriuretic peptide.B prohormone N-Terminal [Mass/Vol] 84 pg/mL <1800 [facility] Comment on above: Heart Failure Unlike ly: < 300 pg/mLHeart Failure Likely< 50 Years: > 450 pg/mL50-75 Years: > 900 pg/mL>75 Years: > 1800 pg/mL Neutrophil percentageOrdered By: ELIAZAR Olivas on 09-20-2024 Neutrophils/100 WBC (Bld) 70.8 % High 47-70 [facility] Nucleated red blood cell per centageOrdered By: ELIAZAR Olivas on 09-20-2024 Nucleated RBC/100 WBC (Bld) [Ratio] 0 % 0-5 [facility] Platelet countOrdered By: ELIAZAR Olivas on 09-20-2024 Platelets (Bld) [#/Vol] 166 10*3/uL 150-450 [facility] Pulmonary Visit Reporton Pulmonary Visit Report Normal [facility] RBC Auto (Bld) [#/Vol]Ordere d By: ELIAZAR Olivas on 09-20-2024 RBC (Bld) [#/Vol] 3.78 10*6/uL Low 4.6-6.2 [facility] White blood cell (WBC) count Ordered By: ELIAZAR Olivas on 09-20-2024 WBC (Bld) [#/Vol] 9.3 10*3/uL 4.4-11.0 [facility] 6 Minute Walk Teston 025 6 Minute Walk Test Normal [facility] Pulmonary Visit Reporton Pulmonary Visit Report Normal [facility] BUN/creatinine ratioOrdered By: Marycarmen Rodriguez on 06-30-2024 Urea nitrogen/Creatinine [Mass ratio] 17.4 mg/mg 10- [facility] Basic Metabolic Profile (BMP )on 06-30-2024 Anion gap [Moles/Vol] 11 mmol/L Normal 5-15 [facility] Comment on above: Performed By: #### L 500.2500 ####[facility] [address] [facility] [address] BUN/CRE 17.4 RATIO Normal - [facility] Comment on above: Performed By: #### L 500.2500 ####[facility] [address] [facility] [address] Calcium [Mass/Vol] 9.7 mg/dL Normal 7.6-11.0 [facility] Comment on above: Performed By: #### L 500.2500 ####[facility] [address] [place], [address] Chloride [Moles/Vol] 105 mmol/L Normal 96-108 [facility] Comment on above: Performed By: #### L 500.2500 ####[facility] [address] [facility] [address] CO2 [Moles/Vol] 25.3 mmol/L Normal 22.0-29.0 [facility] Comment on above: Performed By: #### L 500.2500 ####[facility] [address] [place], [address] Creatinine [Mass/Vol] 1.80 mg/dL High 0.70-1.20 [facility] Comment on above: Performed By: #### L 500.2500 ####[facility] [address] [place], [address] GFR/1.73 sq M.predicted among non-blacks MDRD (S/P/Bld) [Vol rate/Area] 38 mL/min/{1.73_m2} Low >60 [facility] Comment on above: Result Comment: mL/m in/1.73m2 CKD-EPI Creatinine Equation (2020) Performed By: #### L 500.2500 ####[facility] [address] [place], [address] Glucose [Mass/Vol] 112 mg/dL High 70-99 [facility] Comment on above: Performed By: #### L 500.2500 ####[facility] [address] [place], [address] Potassium [Moles/Vol] 4.8 mmol/L Normal 3.3-5.1 [facility] Comment on above: Performed By: #### L 500.2500 ####[facility] [address] [place], [address] Sodium [Moles/Vol] 141 mmol/L Normal 133-145 [facility] Comment on above: Performed By: #### L 500.2500 ####[facility] [address] [place], [address] Urea nitrogen [Mass/Vol] 31 mg/dL High 4-19 [facility] Comment on above: Performed By: #### L 500.2500 ####[facility] [address] [place], [address] Carbon dioxide measurementOr dered By: Marycarmen Rodriguez on 06-30-2024 CO2 [Moles/Vol] 25.3 mmol/L 22.0-29.0 [facility] Chloride measurementOrdered By: Marycarmen Rodriguez on 06-30-2024 Chloride [Moles/Vol] 105 mmol/L 96-108 [facility] GFR/1.73 sq M.predicted ana lilia g non-blacks MDRD (S/P/Bld) [Vol rate/Area]Ordered By: Marycarmen Rodriguez on 06-30-2024 Estimated GFR (MDRD) Non-Af Amer 38 Low >60 [facility] Comment on above: mL/min/1.73m2 CKD-EP I Creatinine Equation (2020) Glomerular filtration rate ( GFR) estimation/1.73 sq m using serum, plasma, or whole bOrdered By: Marycarmen Rodriguez on 06-30-2024 GFR/1.73 sq M.predicted among non-blacks MDRD (S/P/Bld) [Vol rate/Area] 38 mL/min/{1.73_m2} Low >60 [facility] Comment on above: mL/min/1.73m2 CKD-EP I Creatinine Equation (2020) Serum creatinine measurement (mass/volume)Ordered By: Marycarmen Rodriguez on 06-30-2024 Creatinine [Mass/Vol] 1.80 mg/dL High 0.70-1.20 [facility] Serum glucose measurement (m ass/volume)Ordered By: Marycarmen Rodriguez on 06-30-2024 Glucose [Mass/Vol] 112 mg/dL High 70-99 [facility] Serum or plasma anion gap de termination (moles/volume)Ordered By: Marycarmen Rodriguez on 06-30-2024 Anion gap [Moles/Vol] 11 mmol/L 5-15 [facility] Serum or plasma calcium francine urement (mass/volume)Ordered By: Marycarmen Rodriguez on 06-30-2024 Calcium [Mass/Vol] 9.7 mg/dL 7.6-11.0 [facility] Serum or plasma potassium me asurementOrdered By: Marycarmen Rodriguez on 06-30-2024 Potassium [Moles/Vol] 4.8 mmol/L 3.3-5.1 [facility] Serum or plasma sodium measu rement (moles/volume)Ordered By: Marycarmen Rodriguez on 06-30-2024 Sodium [Moles/Vol] 141 mmol/L 133-145 [facility] Serum or plasma urea nitroge n measurement (mass/volume)Ordered By: Marycarmen Rodriguez on 06-30-2024 Urea nitrogen [Mass/Vol] 31 mg/dL High 4-19 [facility] Absolute neutrophil countOrd ered By: Gustabo Pérez on 04-17-2024 Neutrophils (Bld) [#/Vol] 6.0 10*3/uL 2.0-7.7 [facility] BNP (brain natriuretic pepti de measurement)Ordered By: Gustabo Pérez on 04-17-2024 Natriuretic peptide B (Bld) [Mass/Vol] 37.2 pg/mL 0-100 [facility] BNP,B-Type NATRIURETIC PEPTI Sharon 04-17-2024 Natriuretic peptide B (Bld) [Mass/Vol] 37.2 pg/mL Normal 0-100 [facility] Comment on above: Performed By: #### L 500.2500, L100.0100, L503.6620 ####[facility] [address] [place], [address] Basic Metabolic Profile (BMP )on 04-17-2024 BUN/CRE 11.2 RATIO Normal 10-20 [facility] Comment on above: Performed By: #### L 500.2500, L100.0100, L503.6620 ####[facility] [address] [place], [address] CA,Total 9.0 mg/dL Normal 8.5-10.1 [facility] Comment on above: Performed By: #### L 500.2500, L100.0100, L503.6620 ####[facility] [address] [place], [address] Chloride [Moles/Vol] 107 mmol/L Normal 98-107 [facility] Comment on above: Performed By: #### L 500.2500, L100.0100, L503.6620 ####[facility] [address] [place], [address] CO2 [Moles/Vol] 27.0 mmol/L Normal 21.0-32.0 [facility] Comment on above: Performed By: #### L 500.2500, L100.0100, L503.6620 ####[facility] [address] [place], [address] Creatinine [Mass/Vol] 1.79 mg/dL High 0.70-1.30 [facility] Comment on above: Result Comment: The validity of the calculated GFR GFRAA in patients over70 years has not been determined. Clinical correlation isessential. Performed By: #### L 500.2500, L100.0100, L503.6620 ####[facility] [address] [place], [address] EST GFR - AA 47 mL/min Low >60 [facility] Comment on above: Result Comment: Afri can Mac[place] GFR Calc Performed By: #### L 500.2500, L100.0100, L503.6620 ####[facility] [address] [place], [address] GAP 4 Low 5-15 [facility] Comment on above: Performed By: #### L 500.2500, L100.0100, L503.6620 ####[facility] [address] [place], [address] GFR/1.73 sq M.predicted among non-blacks MDRD (S/P/Bld) [Vol rate/Area] 39 mL/min/{1.73_m2} Low >60 [facility] Comment on above: Result Comment: Non- GFR Calc Performed By: #### L 500.2500, L100.0100, L503.6620 ####[facility] [address] [place], [address] Glucose [Mass/Vol] 228 mg/dL High 74-106 [facility] Comment on above: Result Comment: Gluc ose result greater than or equal to 200 mg/dLsuggests DIABETES MELLITUS per A.D.A. criteria. Performed By: #### L 500.2500, L100.0100, L503.6620 ####[facility] [address] [place], [address] Potassium [Moles/Vol] 4.8 mmol/L Normal 3.5-5.1 [facility] Comment on above: Performed By: #### L 500.2500, L100.0100, L503.6620 ####[facility] [address] [place], [address] Sodium [Moles/Vol] 138 mmol/L Normal 136-145 [facility] Comment on above: Performed By: #### L 500.2500, L100.0100, L503.6620 ####[facility] [address] [place], [address] Urea nitrogen [Mass/Vol] 20 mg/dL High - [facility] Comment on above: Performed By: #### L 500.2500, L100.0100, L503.6620 ####[facility] [address] [place], [address] Basophil percentageOrdered B y: Gustabo Pérez on 04-17-2024 Basophils/100 WBC (Bld) 0.5 % 0-1 [facility] Blood urea nitrogen (BUN)/cr eatinine ratioOrdered By: Gustabo Pérez on 04-17-2024 Urea nitrogen/Creatinine [Mass ratio] 11.2 mg/mg 10-20 [facility] CBC W/Diff, Automatedon 04-02 Absolute Lymph 1.29 X10 3/uL Normal 0.83-4.51 [facility] Comment on above: Performed By: #### L 500.2500, L100.0100, L503.6620 ####[facility] [address] [place], [address] Absolute Neut 6.0 X10 3/uL Normal 2.0-7.7 [facility] Comment on above: Performed By: #### L 500.2500, L100.0100, L503.6620 ####[facility] [address] [place], [address] Basophils/100 WBC (Bld) 0.5 % Normal 0-1 [facility] Comment on above: Performed By: #### L 500.2500, L100.0100, L503.6620 ####[facility] [address] [place], [address] Eosinophils/100 WBC (Bld) 1.2 % Normal 0-5 [facility] Comment on above: Performed By: #### L 500.2500, L100.0100, L503.6620 ####[facility] [address] [place], [address] Erythrocyte distribution width (RBC) [Ratio] 13.9 % Normal 11.6-14.6 [facility] Comment on above: Performed By: #### L 500.2500, L100.0100, L503.6620 ####[facility] [address] [place], [address] Hematocrit (Bld) [Volume fraction] 41.0 % Normal 40-54 [facility] Comment on above: Performed By: #### L 500.2500, L100.0100, L503.6620 ####[facility] [address] [place], [address] Hemoglobin (Bld) [Mass/Vol] 13.2 g/dL Normal 13.0-16.5 [facility] Comment on above: Performed By: #### L 500.2500, L100.0100, L503.6620 ####[facility] [address] [place], [address] IG% 0.600 Normal 0.0-0.9 [facility] Comment on above: Result Comment: IG% - Immature Granulocytes (promyelocytes, myelocytes andmetamyelocytes) > 1% indicates that a LEFT SHIFT is Present. Performed By: #### L 500.2500, L100.0100, L503.6620 ####[facility] [address] [place], [address] Lymphocytes/100 WBC (Bld) 15.7 % Low 19-41 [facility] Comment on above: Performed By: #### L 500.2500, L100.0100, L503.6620 ####[facility] [address] [place], [address] MCH (RBC) [Entitic mass] 29.2 pg Normal 27.0-32.0 [facility] Comment on above: Performed By: #### L 500.2500, L100.0100, L503.6620 ####[facility] [address] [place], [address] MCHC (RBC) [Mass/Vol] 32.2 g/dL Normal 32-36 [facility] Comment on above: Performed By: #### L 500.2500, L100.0100, L503.6620 ####[facility] [address] [place], [address] MCV (RBC) [Entitic vol] 90.7 fL Normal 80-94 [facility] Comment on above: Performed By: #### L 500.2500, L100.0100, L503.6620 ####[facility] [address] [place], [address] Monocytes/100 WBC (Bld) 8.5 % Normal 0-10 [facility] Comment on above: Performed By: #### L 500.2500, L100.0100, L503.6620 ####[facility] [address] [place], [address] Neutrophils/100 WBC (Bld) 73.5 % High 47-70 [facility] Comment on above: Performed By: #### L 500.2500, L100.0100, L503.6620 ####[facility] [address] [place], [address] Nucleated RBC (Bld) [#/Vol] 0 10*3/uL Normal 0-5 [facility] Comment on above: Performed By: #### L 500.2500, L100.0100, L503.6620 ####[facility] [address] [place], [address] Platelet mean volume (Bld) [Entitic vol] 12.3 fL High 6.2-12.0 [facility] Comment on above: Performed By: #### L 500.2500, L100.0100, L503.6620 ####[facility] [address] [place], [address] Platelets (Bld) [#/Vol] 185 10*3/uL Normal 150-450 [facility] Comment on above: Performed By: #### L 500.2500, L100.0100, L503.6620 ####[facility] [address] [place], [address] RBC (Bld) [#/Vol] 4.52 10*6/uL Low 4.6-6.2 [facility] Comment on above: Performed By: #### L 500.2500, L100.0100, L503.6620 ####[facility] [address] [place], [address] RDW SD 46.4 fl High 35.1-43.9 [facility] Comment on above: Performed By: #### L 500.2500, L100.0100, L503.6620 ####[facility] [address] [place], [address] WBC (Bld) [#/Vol] 8.2 10*3/uL Normal 4.4-11.0 [facility] Comment on above: Performed By: #### L 500.2500, L100.0100, L503.6620 ####[facility] [address] [place], [address] Carbon dioxide measurementOr dered By: Gustabo Pérez on 04-17-2024 CO2 [Moles/Vol] 27.0 mmol/L 21.0-32.0 [facility] Cardiology Visit Reporton Cardiology Visit Report Normal [facility] Chloride measurementOrdered By: Gustabo Pérez on 04-17-2024 Chloride [Moles/Vol] 107 mmol/L 98-107 [facility] Eosinophil percentageOrdered By: Gustabo Pérez on 04-17-2024 Eosinophils/100 WBC (Bld) 1.2 % 0-5 [facility] Erythrocyte distribution wid th ratioOrdered By: Gustabo Pérez on 04-17-2024 Erythrocyte distribution width (RBC) [Ratio] 13.9 % 11.6-14.6 [facility] Erythrocyte distribution wid th standard deviationOrdered By: Gustabo Pérez on 04-17-2024 Erythrocyte distribution width (RBC) [Entitic vol] 46.4 fL High 35.1-43.9 [facility] Estimated glomerular filtrat ion rate (GFR) AmericanOrdered By: Gustabo Pérez on 04-17-2024 Estimated GFR (MDRD) Amer 47 mL/min Low >60 [facility] Comment on above: GFR Calc Glomerular filtration rate ( GFR) estimationOrdered By: Gustabo Pérez on 04-17-2024 Estimated GFR (MDRD) Non-Af Amer 39 mL/min Low >60 [facility] Comment on above: Non- GFR Calc Glucose measurementOrdered B y: Gustabo Pérez on 04-17-2024 Glucose [Mass/Vol] 228 mg/dL High 74-106 [facility] Comment on above: Glucose result great er than or equal to 200 mg/dLsuggests DIABETES MELLITUS per A.D.A. criteria. Hematocrit Auto (Bld) [Volum e fraction]Ordered By: Gustabo Pérez on 04-17-2024 Hematocrit (Bld) [Volume fraction] 41.0 % 40-54 [facility] Hemoglobin measurementOrdere d By: Gustabo Pérez on 04-17-2024 Hemoglobin (Bld) [Mass/Vol] 13.2 g/dL 13.0-16.5 [facility] Immature granulocytes/100 WB C Auto (Bld)Ordered By: Gustabo Pérez on 04-17-2024 Immature granulocytes/100 WBC (Bld) 0.600 % 0.0-0.9 [facility] Comment on above: IG% - Immature Granu locytes (promyelocytes, myelocytes and metamyelocytes) > 1% indicates that a LEFT SHIFT is Present. Lymphocytes Auto (Unsp spec) [#/Vol]Ordered By: Gustabo Pérez on 04-17-2024 Lymphocytes (Bld) [#/Vol] 1.29 10*3/uL 0.83-4.51 [facility] Lymphocytes/100 WBC Auto (Un sp spec)Ordered By: Gustbao Pérez on 04-17-2024 Lymphocytes/100 WBC (Bld) 15.7 % Low 19-41 [facility] MCV (mean corpuscular volume ) determinationOrdered By: Gustabo Pérez on 04-17-2024 MCV (RBC) [Entitic vol] 90.7 fL 80-94 [facility] Mean corpuscular hemoglobin (MCH) determinationOrdered By: Gustabo Pérez on 04-17-2024 MCH (RBC) [Entitic mass] 29.2 pg 27.0-32.0 [facility] Mean corpuscular hemoglobin concentration (MCHC) determinationOrdered By: Gustabo Pérez on 04-17-2024 MCHC (RBC) [Mass/Vol] 32.2 g/dL 32-36 [facility] Mean platelet volume determi nationOrdered By: Gustabo Pérez on 04-17-2024 Platelet mean volume (Bld) [Entitic vol] 12.3 fL High 6.2-12.0 [facility] Monocyte percentageOrdered B y: Gustabo Pérez on 04-17-2024 Monocytes/100 WBC (Bld) 8.5 % 0-10 [facility] Neutrophil percentageOrdered By: Gustabo Pérez on 04-17-2024 Neutrophils/100 WBC (Bld) 73.5 % High 47-70 [facility] Nucleated red blood cell per centageOrdered By: Gustabo Pérez on 04-17-2024 Nucleated RBC/100 WBC (Bld) [Ratio] 0 % 0-5 [facility] Platelet countOrdered By: Lydia Pérez on 04-17-2024 Platelets (Bld) [#/Vol] 185 10*3/uL 150-450 [facility] Potassium measurementOrdered By: Gustabo Pérez on 04-17-2024 Potassium [Moles/Vol] 4.8 mmol/L 3.5-5.1 [facility] RBC Auto (Bld) [#/Vol]Ordere d By: Gustabo Pérez on 04-17-2024 RBC (Bld) [#/Vol] 4.52 10*6/uL Low 4.6-6.2 [facility] Serum anion gap measurementO rdered By: Gustabo Pérez on 04-17-2024 Anion gap [Moles/Vol] 4 mmol/L Low 5-15 [facility] Serum or plasma calcium francine urement (mass/volume)Ordered By: Gustabo Pérez on 04-17-2024 Calcium [Mass/Vol] 9.0 mg/dL 8.5-10.1 [facility] Serum or plasma creatinine m easurement (mass/volume)Ordered By: Gustabo Pérez on 04-17-2024 Creatinine [Mass/Vol] 1.79 mg/dL High 0.70-1.30 [facility] Comment on above: The validity of the calculated GFR & GFRAA in patients over 70 years has not been determined. Clinical correlation is essential. Serum or plasma urea nitroge n measurement (mass/volume)Ordered By: Gustabo Pérez on 04-17-2024 Urea nitrogen [Mass/Vol] 20 mg/dL High 7-18 [facility] Sodium levelOrdered By: Gustabo Pérez on 04-17-2024 Sodium [Moles/Vol] 138 mmol/L 136-145 [facility] White blood cell (WBC) count Ordered By: Gustabo Pérez on 04-17-2024 WBC (Bld) [#/Vol] 8.2 10*3/uL 4.4-11.0 [facility] Office Visit Reporton 2023 Office Visit Report Normal [facility] Albumin to globulin ratioOrd ered By: Jose Hay on 03-23-2024 Albumin/Globulin [Mass ratio] 1.1 {ratio} 0.9-2.4 [facility] Bilirubin, totalOrdered By: Jose Hay on 03-23-2024 Bilirubin [Mass/Vol] 2.00 mg/dL High 0.20-1.00 [facility] Comment on above: For patients on eltr ombopag therapy, use of Dimension [place] TBIL is not recommended. Blood urea nitrogen (BUN)/cr eatinine ratioOrdered By: Jose Hay on 03-23-2024 Urea nitrogen/Creatinine [Mass ratio] 18.0 mg/mg 10-20 [facility] Carbon dioxide measurementOr dered By: Jose Hay on 03-23-2024 CO2 [Moles/Vol] 28.0 mmol/L 21.0-32.0 [facility] Chloride measurementOrdered By: Jose Hay on 03-23-2024 Chloride [Moles/Vol] 104 mmol/L 98-107 [facility] Comprehensive Metabolic Prof ilon 03-23-2024 Albumin [Mass/Vol] 3.7 g/dL Normal 3.2-5.0 [facility] Comment on above: Order Comment: DR REMY ORDERED BMP AND MAGNESIUM.DR HAY ORDERED LIPID CMP TSH. RANGLE Performed By: #### L 501.9520, L501.5200, L500.4050, L500.4100 ####[facility] [address] [place], [address] Albumin/Globulin [Mass ratio] 1.1 {ratio} Normal 0.9-2.4 [facility] Comment on above: Order Comment: DR REMY ORDERED BMP AND MAGNESIUM.DR HAY ORDERED LIPID CMP TSH. RANGLE Performed By: #### L 501.9520, L501.5200, L500.4050, L500.4100 ####[facility] [address] [place], [address] ALK P 92 U/L Normal 45-117 [facility] Comment on above: Order Comment: DR REMY ORDERED BMP AND MAGNESIUM.DR HAY ORDERED LIPID CMP TSH. RANGLE Performed By: #### L 501.9520, L501.5200, L500.4050, L500.4100 ####[facility] [address] [place], [address] ALT [Catalytic activity/Vol] 52 U/L Normal 16-61 [facility] Comment on above: Order Comment: DR REMY ORDERED BMP AND MAGNESIUM.DR HAY ORDERED LIPID CMP TSH. RANGLE Performed By: #### L 501.9520, L501.5200, L500.4050, L500.4100 ####[facility] [address] [place], [address] AST [Catalytic activity/Vol] 28 U/L Normal 15-37 [facility] Comment on above: Order Comment: DR REMY ORDERED BMP AND MAGNESIUM.DR HAY ORDERED LIPID CMP TSH. RANGLE Performed By: #### L 501.9520, L501.5200, L500.4050, L500.4100 ####[facility] [address] [place], [address] Bilirubin [Mass/Vol] 2.00 mg/dL High 0.20-1.00 [facility] Comment on above: Order Comment: DR REMY ORDERED BMP AND MAGNESIUM.DR HAY ORDERED LIPID CMP TSH. RANGLE Result Comment: For patients on eltrombopag therapy, use of Dimension [place] TBIL is not recommended. Performed By: #### L 501.9520, L501.5200, L500.4050, L500.4100 ####[facility] [address] [place], [address] BUN/CRE 18.0 RATIO Normal 10-20 [facility] Comment on above: Order Comment: DR RMEY ORDERED BMP AND MAGNESIUM.DR HAY ORDERED LIPID CMP TSH. RANGLE Performed By: #### L 501.9520, L501.5200, L500.4050, L500.4100 ####[facility] [address] [place], [address] CA,Total 8.8 mg/dL Normal 8.5-10.1 [facility] Comment on above: Order Comment: DR REMY ORDERED BMP AND MAGNESIUM.DR HAY ORDERED LIPID CMP TSH. RANGLE Performed By: #### L 501.9520, L501.5200, L500.4050, L500.4100 ####[facility] [address] [place], [address] Chloride [Moles/Vol] 104 mmol/L Normal 98-107 [facility] Comment on above: Order Comment: DR REMY ORDERED BMP AND MAGNESIUM.DR HAY ORDERED LIPID CMP TSH. RANGLE Performed By: #### L 501.9520, L501.5200, L500.4050, L500.4100 ####[facility] [address] [place], [address] CO2 [Moles/Vol] 28.0 mmol/L Normal 21.0-32.0 [facility] Comment on above: Order Comment: DR REMY ORDERED BMP AND MAGNESIUM.DR HAY ORDERED LIPID CMP TSH. RANGLE Performed By: #### L 501.9520, L501.5200, L500.4050, L500.4100 ####[facility] [address] [place], [address] Creatinine [Mass/Vol] 1.67 mg/dL High 0.70-1.30 [facility] Comment on above: Order Comment: DR REMY ORDERED BMP AND MAGNESIUM.DR HAY ORDERED LIPID CMP TSH. RANGLE Result Comment: The validity of the calculated GFR GFRAA in patients over70 years has not been determined. Clinical correlation isessential. Performed By: #### L 501.9520, L501.5200, L500.4050, L500.4100 ####[facility] [address] [place], [address] EST GFR - AA 51 mL/min Low >60 [facility] Comment on above: Order Comment: DR REMY ORDERED BMP AND MAGNESIUM.DR HAY ORDERED LIPID CMP TSH. RANGLE Result Comment: Afri can Macanese GFR Calc Performed By: #### L 501.9520, L501.5200, L500.4050, L500.4100 ####[facility] [address] [place], [address] GAP 6 Normal 5-15 [facility] Comment on above: Order Comment: DR REMY ORDERED BMP AND MAGNESIUM.DR HAY ORDERED LIPID CMP TSH. RANGLE Performed By: #### L 501.9520, L501.5200, L500.4050, L500.4100 ####[facility] [address] [place], [address] GFR/1.73 sq M.predicted among non-blacks MDRD (S/P/Bld) [Vol rate/Area] 42 mL/min/{1.73_m2} Low >60 [facility] Comment on above: Order Comment: DR REMY ORDERED BMP AND MAGNESIUM.DR HAY ORDERED LIPID CMP TSH. RANGLE Result Comment: Non- GFR Calc Performed By: #### L 501.9520, L501.5200, L500.4050, L500.4100 ####[facility] [address] [place], [address] Globulin (S) [Mass/Vol] 3.3 g/dL Normal 2.2-4.2 [facility] Comment on above: Order Comment: DR REMY ORDERED BMP AND MAGNESIUM.DR HAY ORDERED LIPID CMP TSH. RANGLE Performed By: #### L 501.9520, L501.5200, L500.4050, L500.4100 ####[facility] [address] [place], [address] Glucose [Mass/Vol] 146 mg/dL High 74-106 [facility] Comment on above: Order Comment: DR REMY ORDERED BMP AND MAGNESIUM.DR HAY ORDERED LIPID CMP TSH. RANGLE Result Comment: Fast ing Glucose result greater than or equal to 126 mg/dLsuggests DIABETES MELLITUS per A.D.A. criteria. Performed By: #### L 501.9520, L501.5200, L500.4050, L500.4100 ####[facility] [address] [place], [address] Potassium [Moles/Vol] 4.4 mmol/L Normal 3.5-5.1 [facility] Comment on above: Order Comment: DR REMY ORDERED BMP AND MAGNESIUM.DR HAY ORDERED LIPID CMP TSH. RANGLE Performed By: #### L 501.9520, L501.5200, L500.4050, L500.4100 ####[facility] [address] [place], [address] Sodium [Moles/Vol] 138 mmol/L Normal 136-145 [facility] Comment on above: Order Comment: DR REMY ORDERED BMP AND MAGNESIUM.DR HAY ORDERED LIPID CMP TSH. RANGLE Performed By: #### L 501.9520, L501.5200, L500.4050, L500.4100 ####[facility] [address] [place], [address] T PROT 7.0 g/dL Normal 6.4-8.2 [facility] Comment on above: Order Comment: DR REMY ORDERED BMP AND MAGNESIUM.DR HAY ORDERED LIPID CMP TSH. RANGLE Performed By: #### L 501.9520, L501.5200, L500.4050, L500.4100 ####[facility] [address] [place], [address] Urea nitrogen [Mass/Vol] 30 mg/dL High 7-18 [facility] Comment on above: Order Comment: DR REMY ORDERED BMP AND MAGNESIUM.DR HAY ORDERED LIPID CMP TSH. RANGLE Performed By: #### L 501.9520, L501.5200, L500.4050, L500.4100 ####[facility] [address] [place], [address] Estimated glomerular filtrat ion rate (GFR) AmericanOrdered By: Jose Hay on 03-23-2024 Estimated GFR (MDRD) Amer 51 mL/min Low >60 [facility] Comment on above: GFR Calc Glomerular filtration rate ( GFR) estimationOrdered By: Jose Hay on 03-23-2024 Estimated GFR (MDRD) Non-Af Amer 42 mL/min Low >60 [facility] Comment on above: Non- GFR Calc Glucose measurementOrdered B y: Jose Hay on 03-23-2024 Glucose [Mass/Vol] 146 mg/dL High 74-106 [facility] Comment on above: Fasting Glucose resu lt greater than or equal to 126 mg/dL suggests DIABETES MELLITUS per A.D.A. criteria. High density lipoprotein (HD L) measurementOrdered By: Jose Hay on 03-23-2024 Cholesterol in HDL [Mass/Vol] 52 mg/dL >40 [facility] Comment on above: The drugs N-Acetylcy steine and Metamizole may falsely depress this assay. Reference Range HDL <40 mg/dL Low HDL Cholesterol HDL >or= 60 mg/dL High HDL Cholesterol Laboratory - Chemistry and C hemistry - challengeOrdered By: Jose Hay on 03-23-2024 AST [Catalytic activity/Vol] 28 U/L 15-37 [facility] Lipid Profileon 03-23-2024 Cholesterol [Mass/Vol] 158 mg/dL Normal 200 [facility] Comment on above: Order Comment: DR REMY ORDERED BMP AND MAGNESIUM.DR HAY ORDERED LIPID CMP TSH. RANGLE Result Comment: <200 mg/dL Desirable 200-240 mg/dL Borderline >240 mg/dL High Risk Performed By: #### L 501.9520, L501.5200, L500.4050, L500.4100 ####[facility] [address] [place], [place], [id number] Cholesterol in HDL [Mass/Vol] 52 mg/dL Normal [facility] Comment on above: Order Comment: DR REMY ORDERED BMP AND MAGNESIUM.DR HAY ORDERED LIPID CMP TSH. RANGLE Result Comment: The drugs N-Acetylcysteine and Metamizole may falselydepress this assay. Reference Range HDL <40 mg/dL Low HDL Cholesterol HDL >or= 60 mg/dL High HDL Cholesterol Performed By: #### L 501.9520, L501.5200, L500.4050, L500.4100 ####[facility] [address] [place], [address] Cholesterol in LDL [Mass/Vol] 61 mg/dL Normal 0-130 [facility] Comment on above: Order Comment: DR REMY ORDERED BMP AND MAGNESIUM.DR HAY ORDERED LIPID CMP TSH. RANGLE Performed By: #### L 501.9520, L501.5200, L500.4050, L500.4100 ####[facility] [address] [place], [address] Cholesterol in VLDL [Mass/Vol] 45 mg/dL High 5-40 [facility] Comment on above: Order Comment: DR REMY ORDERED BMP AND MAGNESIUM.DR HAY ORDERED LIPID CMP TSH. RANGLE Performed By: #### L 501.9520, L501.5200, L500.4050, L500.4100 ####[facility] [address] [place], [address] Triglyceride [Mass/Vol] 225 mg/dL High [facility] Comment on above: Order Comment: DR REMY ORDERED BMP AND MAGNESIUM.DR HAY ORDERED LIPID CMP TSH. RANGLE Result Comment: The drugs N-Acetylcysteine and Metamizole may falselydepress this assay.Serum Triglycerides Reference Interval Normal <150 mg/dL Borderline high 150 - 199 mg/dL High 200 - 499 mg/dL Very High > or = 500 mg/dL Performed By: #### L 501.9520, L501.5200, L500.4050, L500.4100 ####[facility] [address] [place], [address] Low density lipoprotein (LDL ) cholesterol measurementOrdered By: Jose Hay on 03-23-2024 Cholesterol in LDL [Mass/Vol] 61 mg/dL 0-130 [facility] Magnesiumon 11-21-2024 Magnesium [Mass/Vol] 2.1 mg/dL Normal 1.6-2.6 [facility] Comment on above: Order Comment: DR REMY ORDERED BMP AND MAGNESIUM.DR HAY ORDERED LIPID CMP TSH. RANGLE Performed By: #### L 501.9520, L501.5200, L500.4050, L500.4100 ####[facility] [address] [place], [place], [address] Magnesium measurementOrdered By: Jose Hay on 03-23-2024 Magnesium [Mass/Vol] 2.1 mg/dL 1.6-2.6 [facility] Potassium measurementOrdered By: Jose Hay on 03-23-2024 Potassium [Moles/Vol] 4.4 mmol/L 3.5-5.1 [facility] Serum anion gap measurementO rdered By: Jose Hay on 03-23-2024 Anion gap [Moles/Vol] 6 mmol/L 5-15 [facility] Serum globulin measurementOr dered By: Jose Hay on 03-23-2024 Globulin (S) [Mass/Vol] 3.3 g/dL 2.2-4.2 [facility] Serum or plasma alanine guerrero otransferase (ALT) measurementOrdered By: Jose Hay on 03-23-2024 ALT [Catalytic activity/Vol] 52 U/L 16-61 [facility] Serum or plasma albumin francine urement (mass/volume)Ordered By: Jose Hay on 03-23-2024 Albumin [Mass/Vol] 3.7 g/dL 3.2-5.0 [facility] Serum or plasma alkaline bell sphatase measurementOrdered By: Jose Hay on 03-23-2024 ALP [Catalytic activity/Vol] 92 U/L 45-117 [facility] Serum or plasma calcium francine urement (mass/volume)Ordered By: Jose Hay on 03-23-2024 Calcium [Mass/Vol] 8.8 mg/dL 8.5-10.1 [facility] Serum or plasma cholesterol measurement (mass/volume)Ordered By: Jose Hay on 03-23-2024 Cholesterol [Mass/Vol] 158 mg/dL <200 [facility] Comment on above: <200 mg/dL Desirable 200-240 mg/dL Borderline >240 mg/dL High Risk Serum or plasma creatinine m easurement (mass/volume)Ordered By: Jose Hay on 03-23-2024 Creatinine [Mass/Vol] 1.67 mg/dL High 0.70-1.30 [facility] Comment on above: The validity of the calculated GFR & GFRAA in patients over 70 years has not been determined. Clinical correlation is essential. Serum or plasma urea nitroge n measurement (mass/volume)Ordered By: Jose Hay on 03-23-2024 Urea nitrogen [Mass/Vol] 30 mg/dL High 7-18 [facility] Sodium levelOrdered By: Ernst Hay on 03-23-2024 Sodium [Moles/Vol] 138 mmol/L 136-145 [facility] TSH QnOrdered By: Jose rodriguez on 03-23-2024 Thyroid Stimulating Hormone (TSH) 5.340 uIU/mL High 0.358-3.74 0 [facility] Thyroid Stim Hormone (TSH)on 03-23-2024 TSH 5.340 uIU/mL High 0.358-3.74 0 [facility] Comment on above: Order Comment: DR REMY ORDERED BMP AND MAGNESIUM.DR HAY ORDERED LIPID CMP TSH. RANGLE Performed By: #### L 501.9520, L501.5200, L500.4050, L500.4100 ####[facility] [address] [place], [address] Total proteinOrdered By: Emmanuel Hay on 03-23-2024 Protein [Mass/Vol] 7.0 g/dL 6.4-8.2 [facility] Triglycerides measurementOrd ered By: Jose Hay on 03-23-2024 Triglyceride [Mass/Vol] 225 mg/dL High <199 [facility] Comment on above: The drugs N-Acetylcy steine and Metamizole may falsely depress this assay.Serum Triglycerides Reference Interval Normal <150 mg/dL Borderline high 150 - 199 mg/dL High 200 - 499 mg/dL Very High > or = 500 mg/dL Very low density lipoprotein (VLDL) cholesterol measurementOrdered By: Jose Hay on 03-23-2024 VLDL Cholesterol 45 mg/dL High 5-40 [facility] Cardiology Visit Reporton Cardiology Visit Report Normal [facility] Basophil percentageOrdered B y: Marycarmen Rodriguez on 05-07-2023 Chloride [Moles/Vol] 103 mmol/L 98-107 [facility] Glucose [Mass/Vol] 172 mg/dL 74-106 [facility] Comment on above: Fasting Glucose resu lt greater than or equal to 126 mg/dL suggests DIABETES MELLITUS per A.D.A. criteria. Potassium [Moles/Vol] 3.7 mmol/L 3.5-5.1 [facility] Sodium [Moles/Vol] 138 mmol/L 136-145 [facility] Laboratory - Chemistry and C hemistry - challengeOrdered By: Marycarmen Rodriguez on 05-07-2023 CO2 [Moles/Vol] 27.0 mmol/L 21.0-32.0 [facility] Urea nitrogen/Creatinine [Mass ratio] 13.9 mg/mg 10-20 [facility] No Panel InformationOrdered By: Marycarmen Rodriguez on 05-07-2023 Estimated GFR (MDRD) Amer 74 mL/min >60 [facility] Comment on above: GFR Calc Estimated GFR (MDRD) Non-Af Amer 61 mL/min >60 [facility] Comment on above: Non- GFR Calc Serum or plasma calcium francine urement (mass/volume)Ordered By: Marycarmen Rodriguez on 05-07-2023 Calcium [Mass/Vol] 8.6 mg/dL 8.5-10.1 [facility] Serum or plasma creatinine m easurement (mass/volume)Ordered By: Marycarmen Rodriguez on 05-07-2023 Creatinine [Mass/Vol] 1.22 mg/dL 0.70-1.30 [facility] Comment on above: The validity of the calculated GFR & GFRAA in patients over 70 years has not been determined. Clinical correlation is essential. Serum or plasma urea nitroge n measurement (mass/volume)Ordered By: Marycarmen Rodriguez on 05-07-2023 Urea nitrogen [Mass/Vol] 17 mg/dL 7-18 [facility] Thin prep Papanicolaou smear with manual screeningOrdered By: Marycarmen Rodriguez on 05-07-2023 Thin prep Papanicolaou smear with manual screening 8 5-15 [facility] Basophil percentageOrdered B y: Jose Hay on 12-15-2022 Chloride [Moles/Vol] 110 mmol/L 98-107 [facility] Glucose [Mass/Vol] 121 mg/dL 74-106 [facility] Comment on above: Fasting Glucose resu lt from 100 to 125 mg/dL suggests IMPAIRED HOMEOSTASIS per A.D.A. criteria. Potassium [Moles/Vol] 4.0 mmol/L 3.5-5.1 [facility] Sodium [Moles/Vol] 139 mmol/L 136-145 [facility] WBC (Bld) [#/Vol] 7.3 10*3/uL 4.4-11.0 [facility] Blood erythrocytes count (nu mber/volume)Ordered By: Jose Hay on 12-15-2022 RBC (Bld) [#/Vol] 5.18 10*6/uL 4.6-6.2 [facility] Blood hemoglobin measurement (mass/volume)Ordered By: Jose Hay on 12-15-2022 Hemoglobin (Bld) [Mass/Vol] 15.2 g/dL 13.0-16.5 [facility] Blood platelet mean volumeOr dered By: Jose Hay on 12-15-2022 Platelet mean volume (Bld) [Entitic vol] 12.2 fL 6.2-12.0 [facility] Determination of erythrocyte mean corpuscular volume (MCV)Ordered By: Jose Hay on 12-15-2022 MCV (RBC) [Entitic vol] 90.2 fL 80-94 [facility] Hematocrit Auto (Bld) [Volum e fraction]Ordered By: Jose Hay on 12-15-2022 Hematocrit (Bld) [Volume fraction] 46.7 % 40-54 [facility] Laboratory - Chemistry and C hemistry - challengeOrdered By: Jose Hay on 12-15-2022 CO2 [Moles/Vol] 23.0 mmol/L 21.0-32.0 [facility] Natriuretic peptide B (Bld) [Mass/Vol] 38.1 pg/mL 0-100 [facility] Urea nitrogen/Creatinine [Mass ratio] 13.5 mg/mg 10-20 [facility] Laboratory - Hematology and Cell countsOrdered By: Jose Hay on 12-15-2022 Erythrocyte distribution width (RBC) [Entitic vol] 47.5 fL 35.1-43.9 [facility] Erythrocyte distribution width (RBC) [Ratio] 14.4 % 11.6-14.6 [facility] MCH (RBC) [Entitic mass] 29.3 pg 27.0-32.0 [facility] MCHC Auto (RBC) [Mass/Vol]Or dered By: Jose Hay on 12-15-2022 MCHC (RBC) [Mass/Vol] 32.5 g/dL 32-36 [facility] No Panel InformationOrdered By: Jose Hay on 12-15-2022 Estimated GFR (MDRD) Amer 83 mL/min >60 [facility] Comment on above: GFR Calc Estimated GFR (MDRD) Non-Af Amer 68 mL/min >60 [facility] Comment on above: Non- GFR Calc Platelets bldOrdered By: Emmanuel Hay on 12-15-2022 Platelets (Bld) [#/Vol] 143 10*3/uL 150-450 [facility] Serum or plasma calcium francine urement (mass/volume)Ordered By: Jose Hay on 12-15-2022 Calcium [Mass/Vol] 8.8 mg/dL 8.5-10.1 [facility] Serum or plasma creatinine m easurement (mass/volume)Ordered By: Jose Hay on 12-15-2022 Creatinine [Mass/Vol] 1.11 mg/dL 0.70-1.30 [facility] Comment on above: The validity of the calculated GFR & GFRAA in patients over 70 years has not been determined. Clinical correlation is essential. Serum or plasma urea nitroge n measurement (mass/volume)Ordered By: Jose Hay on 12-15-2022 Urea nitrogen [Mass/Vol] 15 mg/dL 7-18 [facility] Thin prep Papanicolaou smear with manual screeningOrdered By: Jose Hay on 12-15-2022 Thin prep Papanicolaou smear with manual screening 6 5-15 [facility] Absolute lymphocyte countOrd ered By: Luz Elena Mckeon on 10-13-2022 Lymphocytes Auto (Unsp spec) [#/Vol] 1.21 10*3/uL 0.83-4.51 [facility] Basophil percentageOrdered B y: Luz Elena Mckeon on 10-13-2022 Basophils/100 WBC (Bld) 0.5 % 0-1 [facility] Chloride [Moles/Vol] 106 mmol/L 98-107 [facility] Eosinophils/100 WBC (Bld) 1.4 % 0-5 [facility] Glucose [Mass/Vol] 277 mg/dL 74-106 [facility] Comment on above: Glucose result great er than or equal to 200 mg/dLsuggests DIABETES MELLITUS per A.D.A. criteria. Neutrophils (Bld) [#/Vol] 4.0 10*3/uL 2.0-7.7 [facility] Neutrophils/100 WBC (Bld) 68.5 % 47-70 [facility] Potassium [Moles/Vol] 4.1 mmol/L 3.5-5.1 [facility] Sodium [Moles/Vol] 139 mmol/L 136-145 [facility] WBC (Bld) [#/Vol] 5.8 10*3/uL 4.4-11.0 [facility] Blood erythrocytes count (nu mber/volume)Ordered By: Luz Elena Mckeon on 10-13-2022 RBC (Bld) [#/Vol] 4.66 10*6/uL 4.6-6.2 [facility] Blood hemoglobin measurement (mass/volume)Ordered By: Luz Elena Mckeon on 10-13-2022 Hemoglobin (Bld) [Mass/Vol] 13.6 g/dL 13.0-16.5 [facility] Blood lymphocytes/100 leukoc ytesOrdered By: Luz Elena Mckeon on 10-13-2022 Lymphocytes/100 WBC (Bld) 20.7 % 19-41 [facility] Blood monocytes/100 leukocyt esOrdered By: Luz Elena Mckeon on 10-13-2022 Monocytes/100 WBC (Bld) 8.6 % 0-10 [facility] Blood platelet mean volumeOr dered By: Luz Elena Mckeon on 10-13-2022 Platelet mean volume (Bld) [Entitic vol] 12.6 fL 6.2-12.0 [facility] Determination of erythrocyte mean corpuscular volume (MCV)Ordered By: Luz Elena Mckeon on 10-13-2022 MCV (RBC) [Entitic vol] 89.5 fL 80-94 [facility] Hematocrit Auto (Bld) [Volum e fraction]Ordered By: Luz Elena Mckeon on 10-13-2022 Hematocrit (Bld) [Volume fraction] 41.7 % 40-54 [facility] Laboratory - Chemistry and C hemistry - challengeOrdered By: Luz Elena Mckeon on 10-13-2022 CO2 [Moles/Vol] 27.0 mmol/L 21.0-32.0 [facility] Free T4 [Mass/Vol] 0.77 ng/dL 0.76-1.46 [facility] Magnesium [Mass/Vol] 2.1 mg/dL 1.6-2.6 [facility] Natriuretic peptide B (Bld) [Mass/Vol] 47.2 pg/mL 0-100 [facility] Urea nitrogen/Creatinine [Mass ratio] 17.2 mg/mg 10-20 [facility] Laboratory - Hematology and Cell countsOrdered By: Luz Elena Mckeon on 10-13-2022 Erythrocyte distribution width (RBC) [Entitic vol] 46.1 fL 35.1-43.9 [facility] Erythrocyte distribution width (RBC) [Ratio] 14.1 % 11.6-14.6 [facility] Immature granulocytes/100 WBC (Bld) 0.300 % 0.0-0.9 [facility] Comment on above: IG% - Immature Granu locytes (promyelocytes, myelocytes and metamyelocytes) > 1% indicates that a LEFT SHIFT is Present. MCH (RBC) [Entitic mass] 29.2 pg 27.0-32.0 [facility] Nucleated RBC/100 WBC (Bld) [Ratio] 0 % 0-5 [facility] MCHC Auto (RBC) [Mass/Vol]Or dered By: Luz Elena Mckeon on 10-13-2022 MCHC (RBC) [Mass/Vol] 32.6 g/dL 32-36 [facility] No Panel InformationOrdered By: Luz Elena Mckeon on 10-13-2022 Estimated GFR (MDRD) Amer 61 mL/min >60 [facility] Comment on above: GFR Calc Estimated GFR (MDRD) Non-Af Amer 50 mL/min >60 [facility] Comment on above: Non- GFR Calc Free Triiodothyronine (T3) pg/dL 2.7 pg/mL 2.18-3.98 [facility] Thyroid Stimulating Hormone (TSH) 4.12 uIU/mL 0.358-3.74 [facility] Platelets bldOrdered By: Loco Mckeon on 10-13-2022 Platelets (Bld) [#/Vol] 126 10*3/uL 150-450 [facility] Serum or plasma calcium francine urement (mass/volume)Ordered By: Luz Elena Mckeon on 10-13-2022 Calcium [Mass/Vol] 8.5 mg/dL 8.5-10.1 [facility] Serum or plasma creatinine m easurement (mass/volume)Ordered By: Luz Elena Mckeon on 10-13-2022 Creatinine [Mass/Vol] 1.45 mg/dL 0.70-1.30 [facility] Comment on above: The validity of the calculated GFR & GFRAA in patients over 70 years has not been determined. Clinical correlation is essential. Serum or plasma urea nitroge n measurement (mass/volume)Ordered By: Luz Elena Mckeon on 10-13-2022 Urea nitrogen [Mass/Vol] 25 mg/dL 7-18 [facility] Thin prep Papanicolaou smear with manual screeningOrdered By: Luz Elena Mckeon on 10-13-2022 Thin prep Papanicolaou smear with manual screening 6 5-15 [facility] COVID-19 virus antigen assay Ordered By: Shaan Santos on 09-21-2022 SARS-CoV-2 (COVID-19) Ag IA.rapid Ql (Resp) [facility] COVID-19 virus antigen assay Ordered By: Dr. Santos on 09-21-2022 SARS-CoV-2 (COVID-19) Ag IA.rapid Ql (Resp) [facility] Glucose Glucometer (BldC) [M ass/Vol]Ordered By: Dr. Santos on 09-21-2022 Glucose [Mass/Vol] 193 mg/dL 74-106 [facility] Comment on above: MANAGEMENT OF PATIEN T CARE PER NURSING PROTOCOL Absolute lymphocyte countOrd ered By: Dr. Leo on 09-18-2022 Lymphocytes Auto (Unsp spec) [#/Vol] 1.83 10*3/uL 0.83-4.51 [facility] Basophil percentageOrdered B y: Dr. Leo on 09-18-2022 Basophils/100 WBC (Bld) 0.3 % 0-1 [facility] Bilirubin [Mass/Vol] 1.20 mg/dL 0.20-1.00 [facility] Comment on above: For patients on eltr ombopag therapy, use of Dimension [place] TBIL is not recommended. Chloride [Moles/Vol] 108 mmol/L 98-107 [facility] Cholesterol [Mass/Vol] 114 mg/dL <200 [facility] Comment on above: <200 mg/dL Desirable 200-240 mg/dL Borderline >240 mg/dL High Risk Eosinophils/100 WBC (Bld) 2.0 % 0-5 [facility] Glucose [Mass/Vol] 87 mg/dL 74-106 [facility] Neutrophils (Bld) [#/Vol] 4.3 10*3/uL 2.0-7.7 [facility] Neutrophils/100 WBC (Bld) 60.9 % 47-70 [facility] Potassium [Moles/Vol] 3.5 mmol/L 3.5-5.1 [facility] Protein [Mass/Vol] 5.9 g/dL 6.4-8.2 [facility] Sodium [Moles/Vol] 142 mmol/L 136-145 [facility] Triglyceride [Mass/Vol] 174 mg/dL <199 [facility] Comment on above: The drugs N-Acetylcy steine and Metamizole may falsely depress this assay.Serum Triglycerides Reference Interval Normal <150 mg/dL Borderline high 150 - 199 mg/dL High 200 - 499 mg/dL Very High > or = 500 mg/dL WBC (Bld) [#/Vol] 7.0 10*3/uL 4.4-11.0 [facility] Blood erythrocytes count (nu mber/volume)Ordered By: Dr. Leo on 09-18-2022 RBC (Bld) [#/Vol] 4.64 10*6/uL 4.6-6.2 [facility] Blood hemoglobin measurement (mass/volume)Ordered By: Dr. Leo on 09-18-2022 Hemoglobin (Bld) [Mass/Vol] 13.2 g/dL 13.0-16.5 [facility] Blood lymphocytes/100 leukoc ytesOrdered By: Dr. Leo on 09-18-2022 Lymphocytes/100 WBC (Bld) 26.1 % 19-41 [facility] Blood monocytes/100 leukocyt esOrdered By: Dr. Leo on 09-18-2022 Monocytes/100 WBC (Bld) 10.4 % 0-10 [facility] Blood platelet mean volumeOr dered By: Dr. Leo on 09-18-2022 Platelet mean volume (Bld) [Entitic vol] 12.3 fL 6.2-12.0 [facility] Determination of erythrocyte mean corpuscular volume (MCV)Ordered By: Dr. Leo on 09-18-2022 MCV (RBC) [Entitic vol] 90.1 fL 80-94 [facility] Hematocrit Auto (Bld) [Volum e fraction]Ordered By: Dr. Leo on 09-18-2022 Hematocrit (Bld) [Volume fraction] 41.8 % 40-54 [facility] Laboratory - Chemistry and C hemistry - challengeOrdered By: Dr. Leo on 09-18-2022 ALP [Catalytic activity/Vol] 113 U/L 45-117 [facility] ALT [Catalytic activity/Vol] 31 U/L 16-61 [facility] CO2 [Moles/Vol] 26.0 mmol/L 21.0-32.0 [facility] Globulin (S) [Mass/Vol] 3.0 g/dL 2.2-4.2 [facility] Urea nitrogen/Creatinine [Mass ratio] 13.4 mg/mg 10-20 [facility] Laboratory - Hematology and Cell countsOrdered By: Dr. Leo on 09-18-2022 Erythrocyte distribution width (RBC) [Entitic vol] 46.9 fL 35.1-43.9 [facility] Erythrocyte distribution width (RBC) [Ratio] 14.4 % 11.6-14.6 [facility] Immature granulocytes/100 WBC (Bld) 0.300 % 0.0-0.9 [facility] Comment on above: IG% - Immature Granu locytes (promyelocytes, myelocytes and metamyelocytes) > 1% indicates that a LEFT SHIFT is Present. MCH (RBC) [Entitic mass] 28.4 pg 27.0-32.0 [facility] Nucleated RBC/100 WBC (Bld) [Ratio] 0 % 0-5 [facility] MCHC Auto (RBC) [Mass/Vol]Or dered By: Dr. Leo on 09-18-2022 MCHC (RBC) [Mass/Vol] 31.6 g/dL 32-36 [facility] No Panel InformationOrdered By: Dr. Leo on 09-18-2022 Estimated Creatinine Clearance Calc 47.13 ml/min [facility] Estimated GFR (MDRD) Amer 71 mL/min >60 [facility] Comment on above: GFR Calc Estimated GFR (MDRD) Non-Af Amer 58 mL/min >60 [facility] Comment on above: Non- GFR Calc Thyroid Stimulating Hormone (TSH) 3.64 uIU/mL 0.358-3.74 [facility] Troponin I High Sensitivity 8 pg/mL 3.0-78.0 [facility] Comment on above: Please Note: New [place] t Units and Gender Specific Reference Ranges. For more information see Policy Stat Procedure [place] High Sensitivity Troponin (TNIH) and attachments. Platelets bldOrdered By: Dr. Leo on 09-18-2022 Platelets (Bld) [#/Vol] 131 10*3/uL 150-450 [facility] Serum or plasma albumin francine urement (mass/volume)Ordered By: Dr. Leo on 09-18-2022 Albumin [Mass/Vol] 2.9 g/dL 3.2-5.0 [facility] Serum or plasma albumin/glob ulin mass ratioOrdered By: Dr. Leo on 09-18-2022 Albumin/Globulin [Mass ratio] 1.0 {ratio} 0.9-2.4 [facility] Serum or plasma calcium francine urement (mass/volume)Ordered By: Dr. Leo on 09-18-2022 Calcium [Mass/Vol] 7.6 mg/dL 8.5-10.1 [facility] Serum or plasma cholesterol in HDL measurement (mass/volume)Ordered By: Dr. Leo on 09-18-2022 Cholesterol in HDL [Mass/Vol] 36 mg/dL >40 [facility] Comment on above: The drugs N-Acetylcy steine and Metamizole may falsely depress this assay. Reference Range HDL <40 mg/dL Low HDL Cholesterol HDL >or= 60 mg/dL High HDL Cholesterol Serum or plasma cholesterol in VLDL measurement (mass/volume)Ordered By: Dr. Leo on 09-18-2022 Cholesterol in VLDL [Mass/Vol] 35 mg/dL 5-40 [facility] Serum or plasma creatinine m easurement (mass/volume)Ordered By: Dr. Leo on 09-18-2022 Creatinine [Mass/Vol] 1.27 mg/dL 0.70-1.30 [facility] Comment on above: The validity of the calculated GFR & GFRAA in patients over 70 years has not been determined. Clinical correlation is essential. Serum or plasma low density lipoprotein (LDL) cholesterol measurement (mass/volume)Ordered By: Dr. Leo on 09-18-2022 Cholesterol in LDL [Mass/Vol] 43 mg/dL 0-130 [facility] Serum or plasma urea nitroge n measurement (mass/volume)Ordered By: Dr. Leo on 09-18-2022 Urea nitrogen [Mass/Vol] 17 mg/dL 7-18 [facility] Thin prep Papanicolaou smear with manual screeningOrdered By: Dr. Leo on 09-18-2022 Thin prep Papanicolaou smear with manual screening 21 U/L 15-37 [facility] Thin prep Papanicolaou smear with manual screening 8 5-15 [facility] Whole blood hemoglobin A1c/t otal hemoglobin ratio (mass fraction)Ordered By: Dr. Leo on 09-18-2022 HbA1c (Bld) [Mass fraction] 7.7 % 3.8-5.6 [facility] Comment on above: Normal < 5.7 % Predi abetic 5.7 - 6.4 % Diabetic >or= 6.5 % Please note range changes. INR in Blood by Coagulation assayOrdered By: Dr. Hall on 09-17-2022 INR Coag (Bld) [Relative time] 0.9 {INR} [facility] Laboratory - Chemistry and C hemistry - challengeOrdered By: Dr. Leo on 09-17-2022 Magnesium [Mass/Vol] 2.3 mg/dL 1.6-2.6 [facility] Laboratory - CoagulationOrde red By: Dr. Hall on 09-17-2022 aPTT Coag (Bld) [Time] 32.1 s 24.1-36.2 [facility] PT Coag (PPP) [Time] 12.3 s 11.7-14.9 [facility] Basophil percentageOrdered B y: Dr. Hay on 09-01-2022 Bilirubin [Mass/Vol] 0.70 mg/dL 0.20-1.00 [facility] Comment on above: For patients on eltr ombopag therapy, use of Dimension [place] TBIL is not recommended. Chloride [Moles/Vol] 112 mmol/L 98-107 [facility] Glucose [Mass/Vol] 151 mg/dL 74-106 [facility] Comment on above: Fasting Glucose resu lt greater than or equal to 126 mg/dL suggests DIABETES MELLITUS per A.D.A. criteria. Potassium [Moles/Vol] 3.9 mmol/L 3.5-5.1 [facility] Protein [Mass/Vol] 5.7 g/dL 6.4-8.2 [facility] Sodium [Moles/Vol] 142 mmol/L 136-145 [facility] WBC (Bld) [#/Vol] 4.7 10*3/uL 4.4-11.0 [facility] Blood erythrocytes count (nu mber/volume)Ordered By: Dr. Hay on 09-01-2022 RBC (Bld) [#/Vol] 4.60 10*6/uL 4.6-6.2 [facility] Blood hemoglobin measurement (mass/volume)Ordered By: Dr. Hay on 09-01-2022 Hemoglobin (Bld) [Mass/Vol] 13.0 g/dL 13.0-16.5 [facility] Blood platelet mean volumeOr dered By: Dr. Hay on 09-01-2022 Platelet mean volume (Bld) [Entitic vol] 12.8 fL 6.2-12.0 [facility] Determination of erythrocyte mean corpuscular volume (MCV)Ordered By: Dr. Hay on 09-01-2022 MCV (RBC) [Entitic vol] 89.1 fL 80-94 [facility] Hematocrit Auto (Bld) [Volum e fraction]Ordered By: Dr. Hay on 09-01-2022 Hematocrit (Bld) [Volume fraction] 41.0 % 40-54 [facility] Laboratory - Chemistry and C hemistry - challengeOrdered By: Dr. Hay on 09-01-2022 ALP [Catalytic activity/Vol] 149 U/L 45-117 [facility] ALT [Catalytic activity/Vol] 35 U/L 16-61 [facility] CO2 [Moles/Vol] 27.0 mmol/L 21.0-32.0 [facility] Globulin (S) [Mass/Vol] 2.9 g/dL 2.2-4.2 [facility] Urea nitrogen/Creatinine [Mass ratio] 15.8 mg/mg 10-20 [facility] Laboratory - Hematology and Cell countsOrdered By: Dr. Hay on 09-01-2022 Erythrocyte distribution width (RBC) [Entitic vol] 44.1 fL 35.1-43.9 [facility] Erythrocyte distribution width (RBC) [Ratio] 13.5 % 11.6-14.6 [facility] MCH (RBC) [Entitic mass] 28.3 pg 27.0-32.0 [facility] MCHC Auto (RBC) [Mass/Vol]Or dered By: Dr. Hay on 09-01-2022 MCHC (RBC) [Mass/Vol] 31.7 g/dL 32-36 [facility] No Panel InformationOrdered By: Dr. Hay on 09-01-2022 Estimated Creatinine Clearance Calc 46.51 ml/min [facility] Estimated GFR (MDRD) Amer 67 mL/min >60 [facility] Comment on above: GFR Calc Estimated GFR (MDRD) Non-Af Amer 55 mL/min >60 [facility] Comment on above: Non- GFR Calc Platelets bldOrdered By: Dr. Hay on 09-01-2022 Platelets (Bld) [#/Vol] 106 10*3/uL 150-450 [facility] Serum or plasma albumin francine urement (mass/volume)Ordered By: Dr. Hay on 09-01-2022 Albumin [Mass/Vol] 2.8 g/dL 3.2-5.0 [facility] Serum or plasma albumin/glob ulin mass ratioOrdered By: Dr. Hay on 09-01-2022 Albumin/Globulin [Mass ratio] 1.0 {ratio} 0.9-2.4 [facility] Serum or plasma calcium francine urement (mass/volume)Ordered By: Dr. Hay on 09-01-2022 Calcium [Mass/Vol] 8.0 mg/dL 8.5-10.1 [facility] Serum or plasma creatinine m easurement (mass/volume)Ordered By: Dr. Hay on 09-01-2022 Creatinine [Mass/Vol] 1.33 mg/dL 0.70-1.30 [facility] Comment on above: The validity of the calculated GFR & GFRAA in patients over 70 years has not been determined. Clinical correlation is essential. Serum or plasma urea nitroge n measurement (mass/volume)Ordered By: Dr. Hay on 09-01-2022 Urea nitrogen [Mass/Vol] 21 mg/dL 7-18 [facility] Thin prep Papanicolaou smear with manual screeningOrdered By: Dr. Hay on 09-01-2022 Thin prep Papanicolaou smear with manual screening 21 U/L 15-37 [facility] Thin prep Papanicolaou smear with manual screening 3 5-15 [facility] No Panel InformationOrdered By: Dr. Hay on 08-31-2022 Activated Clotting Time 275 sec 74-137 [facility] Basophil percentageOrdered B y: Dr. Hay on 08-19-2022 Chloride [Moles/Vol] 108 mmol/L 98-107 [facility] Glucose [Mass/Vol] 158 mg/dL 74-106 [facility] Comment on above: Fasting Glucose resu lt greater than or equal to 126 mg/dL suggests DIABETES MELLITUS per A.D.A. criteria. Potassium [Moles/Vol] 4.3 mmol/L 3.5-5.1 [facility] Sodium [Moles/Vol] 137 mmol/L 136-145 [facility] WBC (Bld) [#/Vol] 8.2 10*3/uL 4.4-11.0 [facility] Blood erythrocytes count (nu mber/volume)Ordered By: Dr. Hay on 08-19-2022 RBC (Bld) [#/Vol] 5.05 10*6/uL 4.6-6.2 [facility] Blood hemoglobin measurement (mass/volume)Ordered By: Dr. Hay on 08-19-2022 Hemoglobin (Bld) [Mass/Vol] 14.3 g/dL 13.0-16.5 [facility] Blood platelet mean volumeOr dered By: Dr. Hay on 08-19-2022 Platelet mean volume (Bld) [Entitic vol] 12.5 fL 6.2-12.0 [facility] Determination of erythrocyte mean corpuscular volume (MCV)Ordered By: Dr. Hay on 08-19-2022 MCV (RBC) [Entitic vol] 88.3 fL 80-94 [facility] Hematocrit Auto (Bld) [Volum e fraction]Ordered By: Dr. Hay on 08-19-2022 Hematocrit (Bld) [Volume fraction] 44.6 % 40-54 [facility] INR in Blood by Coagulation assayOrdered By: Dr. Hay on 08-19-2022 INR Coag (Bld) [Relative time] 1.1 {INR} [facility] Laboratory - Chemistry and C hemistry - challengeOrdered By: Dr. Hay on 08-19-2022 CO2 [Moles/Vol] 25.0 mmol/L 21.0-32.0 [facility] Urea nitrogen/Creatinine [Mass ratio] 12.0 mg/mg 10-20 [facility] Laboratory - CoagulationOrde red By: Dr. Hay on 08-19-2022 aPTT Coag (Bld) [Time] 30.9 s 24.1-36.2 [facility] PT Coag (PPP) [Time] 13.4 s 11.7-14.9 [facility] Laboratory - Hematology and Cell countsOrdered By: Dr. Hay on 08-19-2022 Erythrocyte distribution width (RBC) [Entitic vol] 44.8 fL 35.1-43.9 [facility] Erythrocyte distribution width (RBC) [Ratio] 13.9 % 11.6-14.6 [facility] MCH (RBC) [Entitic mass] 28.3 pg 27.0-32.0 [facility] MCHC Auto (RBC) [Mass/Vol]Or dered By: Dr. Hay on 08-19-2022 MCHC (RBC) [Mass/Vol] 32.1 g/dL 32-36 [facility] No Panel InformationOrdered By: Dr. Hay on 08-19-2022 Estimated GFR (MDRD) Amer 72 mL/min >60 [facility] Comment on above: GFR Calc Estimated GFR (MDRD) Non-Af Amer 60 mL/min >60 [facility] Comment on above: Non- GFR Calc Platelets bldOrdered By: Dr. Hay on 08-19-2022 Platelets (Bld) [#/Vol] 151 10*3/uL 150-450 [facility] Serum or plasma calcium francine urement (mass/volume)Ordered By: Dr. Hay on 08-19-2022 Calcium [Mass/Vol] 9.0 mg/dL 8.5-10.1 [facility] Serum or plasma creatinine m easurement (mass/volume)Ordered By: Dr. Hay on 08-19-2022 Creatinine [Mass/Vol] 1.25 mg/dL 0.70-1.30 [facility] Comment on above: The validity of the calculated GFR & GFRAA in patients over 70 years has not been determined. Clinical correlation is essential. Serum or plasma urea nitroge n measurement (mass/volume)Ordered By: Dr. Hay on 08-19-2022 Urea nitrogen [Mass/Vol] 15 mg/dL 7-18 [facility] Thin prep Papanicolaou smear with manual screeningOrdered By: Dr. Hay on 08-19-2022 Thin prep Papanicolaou smear with manual screening 4 5-15 [facility] Basophil percentageOrdered B y: Dr. Rodriguez on 06-11-2022 Chloride [Moles/Vol] 102 mmol/L 98-107 [facility] Glucose [Mass/Vol] 274 mg/dL 74-106 [facility] Comment on above: Glucose result great er than or equal to 200 mg/dLsuggests DIABETES MELLITUS per A.D.A. criteria. Potassium [Moles/Vol] 4.3 mmol/L 3.5-5.1 [facility] Sodium [Moles/Vol] 136 mmol/L 136-145 [facility] Laboratory - Chemistry and C hemistry - challengeOrdered By: Dr. Rodriguez on 06-11-2022 CO2 [Moles/Vol] 24.0 mmol/L 21.0-32.0 [facility] Magnesium [Mass/Vol] 2.2 mg/dL 1.6-2.6 [facility] Urea nitrogen/Creatinine [Mass ratio] 15.7 mg/mg 10-20 [facility] No Panel InformationOrdered By: Dr. Rodriguez on 06-11-2022 Estimated GFR (MDRD) Amer 67 mL/min >60 [facility] Comment on above: GFR Calc Estimated GFR (MDRD) Non-Af Amer 55 mL/min >60 [facility] Comment on above: Non- GFR Calc Serum or plasma calcium francine urement (mass/volume)Ordered By: Dr. Rodriguez on 06-11-2022 Calcium [Mass/Vol] 8.7 mg/dL 8.5-10.1 [facility] Serum or plasma creatinine m easurement (mass/volume)Ordered By: Dr. Rodriguez on 06-11-2022 Creatinine [Mass/Vol] 1.34 mg/dL 0.70-1.30 [facility] Comment on above: The validity of the calculated GFR & GFRAA in patients over 70 years has not been determined. Clinical correlation is essential. Serum or plasma urea nitroge n measurement (mass/volume)Ordered By: Dr. Rodriguez on 06-11-2022 Urea nitrogen [Mass/Vol] 21 mg/dL 7-18 [facility] Thin prep Papanicolaou smear with manual screeningOrdered By: Dr. Rodriguez on 06-11-2022 Thin prep Papanicolaou smear with manual screening 10 5-15 [facility] Absolute lymphocyte countOrd ered By: Luz Elena Mckeon on 04-14-2022 Lymphocytes Auto (Unsp spec) [#/Vol] 1.60 10*3/uL 0.83-4.51 [facility] Basophil percentageOrdered B y: Luz Elena Mckeon on 04-14-2022 Basophils/100 WBC (Bld) 0.3 % 0-1 [facility] Chloride [Moles/Vol] 106 mmol/L 98-107 [facility] Eosinophils/100 WBC (Bld) 1.5 % 0-5 [facility] Glucose [Mass/Vol] 211 mg/dL 74-106 [facility] Comment on above: Glucose result great er than or equal to 200 mg/dLsuggests DIABETES MELLITUS per A.D.A. criteria. Neutrophils (Bld) [#/Vol] 3.8 10*3/uL 2.0-7.7 [facility] Neutrophils/100 WBC (Bld) 61.3 % 47-70 [facility] Potassium [Moles/Vol] 4.4 mmol/L 3.5-5.1 [facility] Sodium [Moles/Vol] 136 mmol/L 136-145 [facility] WBC (Bld) [#/Vol] 6.2 10*3/uL 4.4-11.0 [facility] Blood erythrocytes count (nu mber/volume)Ordered By: Luz Elena Mckeon on 04-14-2022 RBC (Bld) [#/Vol] 4.87 10*6/uL 4.6-6.2 [facility] Blood hemoglobin measurement (mass/volume)Ordered By: Luz Elena Mckeon on 04-14-2022 Hemoglobin (Bld) [Mass/Vol] 14.1 g/dL 13.0-16.5 [facility] Blood lymphocytes/100 leukoc ytesOrdered By: Luz Elena Mckeon on 04-14-2022 Lymphocytes/100 WBC (Bld) 25.8 % 19-41 [facility] Blood monocytes/100 leukocyt esOrdered By: Luz Elena Mckeon on 04-14-2022 Monocytes/100 WBC (Bld) 10.8 % 0-10 [facility] Blood platelet mean volumeOr dered By: Luz Elena Mckeon on 04-14-2022 Platelet mean volume (Bld) [Entitic vol] 12.8 fL 6.2-12.0 [facility] Determination of erythrocyte mean corpuscular volume (MCV)Ordered By: Luz Elena Mckeon on 04-14-2022 MCV (RBC) [Entitic vol] 88.1 fL 80-94 [facility] Hematocrit Auto (Bld) [Volum e fraction]Ordered By: Luz Elena Mckeon on 04-14-2022 Hematocrit (Bld) [Volume fraction] 42.9 % 40-54 [facility] Laboratory - Chemistry and C hemistry - challengeOrdered By: Luz Elena Mckeon on 04-14-2022 CO2 [Moles/Vol] 25.0 mmol/L 21.0-32.0 [facility] Natriuretic peptide B (Bld) [Mass/Vol] 54.2 pg/mL 0-100 [facility] Urea nitrogen/Creatinine [Mass ratio] 13.3 mg/mg 10-20 [facility] Laboratory - Hematology and Cell countsOrdered By: Luz Elena Mckeon on 04-14-2022 Erythrocyte distribution width (RBC) [Entitic vol] 44.7 fL 35.1-43.9 [facility] Erythrocyte distribution width (RBC) [Ratio] 13.9 % 11.6-14.6 [facility] Immature granulocytes/100 WBC (Bld) 0.300 % 0.0-0.9 [facility] Comment on above: IG% - Immature Granu locytes (promyelocytes, myelocytes and metamyelocytes) > 1% indicates that a LEFT SHIFT is Present. MCH (RBC) [Entitic mass] 29.0 pg 27.0-32.0 [facility] Nucleated RBC/100 WBC (Bld) [Ratio] 0 % 0-5 [facility] MCHC Auto (RBC) [Mass/Vol]Or dered By: Luz Elena Mckeon on 04-14-2022 MCHC (RBC) [Mass/Vol] 32.9 g/dL 32-36 [facility] No Panel InformationOrdered By: Luz Elena Mckeon on 04-14-2022 Estimated GFR (MDRD) Amer 81 mL/min >60 [facility] Comment on above: GFR Calc Estimated GFR (MDRD) Non-Af Amer 67 mL/min >60 [facility] Comment on above: Non- GFR Calc Platelets bldOrdered By: Loco Mckeon on 04-14-2022 Platelets (Bld) [#/Vol] 150 10*3/uL 150-450 [facility] Serum or plasma calcium francine urement (mass/volume)Ordered By: Luz Elena Mckeon on 04-14-2022 Calcium [Mass/Vol] 8.4 mg/dL 8.5-10.1 [facility] Serum or plasma creatinine m easurement (mass/volume)Ordered By: Luz Elena Mckeon on 04-14-2022 Creatinine [Mass/Vol] 1.13 mg/dL 0.70-1.30 [facility] Comment on above: The validity of the calculated GFR & GFRAA in patients over 70 years has not been determined. Clinical correlation is essential. Serum or plasma urea nitroge n measurement (mass/volume)Ordered By: Luz Elena Mckeon on 04-14-2022 Urea nitrogen [Mass/Vol] 15 mg/dL 7-18 [facility] Thin prep Papanicolaou smear with manual screeningOrdered By: Luz Elena Mckeon on 04-14-2022 Thin prep Papanicolaou smear with manual screening 5 -15 [facility] Laboratory - Microbiology an d Antimicrobial susceptibilityon 03-27-2022 SARS-CoV-2 (COVID-19) RNA REAGAN+probe Ql (Unsp spec) Detected [facility] No Panel Informationon 03-27 Influenza Types A,B Rapid (Clinic) Not detected [facility] Absolute lymphocyte counton 11-21-2021 Lymphocytes Auto (Unsp spec) [#/Vol] 1.23 10*3/uL 0.83-4.51 [facility] Work Phone: [phone] Basophil percentageon 2021 Basophils/100 WBC (Bld) 0.3 % 0-1 [facility] Work Phone: Chloride [Moles/Vol] 106 mmol/L 98-107 [facility] Work Phone: Eosinophils/100 WBC (Bld) 1.2 % 0-5 [facility] Work Phone: Glucose [Mass/Vol] 166 mg/dL 74-106 [facility] Work Phone: Comment on above: Fasting Glucose resu lt greater than or equal to 126 mg/dL suggests DIABETES MELLITUS per A.D.A. criteria. Neutrophils (Bld) [#/Vol] 4.7 10*3/uL 2.0-7.7 [facility] Work Phone: Neutrophils/100 WBC (Bld) 69.8 % 47-70 [facility] Work Phone: Potassium [Moles/Vol] 4.2 mmol/L 3.5-5.[address] [facility] Work Phone: [phone] Sodium [Moles/Vol] 140 mmol/L 136-[address] [facility] Work Phone: WBC (Bld) [#/Vol] 6.7 10*3/uL 4.4-11.[facility] Work Phone: Blood erythrocytes count (nu mber/volume)on 11-21-2021 RBC (Bld) [#/Vol] 5.06 10*6/uL 4.6-6.2 [facility] Work Phone: [phone] Blood hemoglobin measurement (mass/volume)on 11-21-2021 Hemoglobin (Bld) [Mass/Vol] 14.3 g/dL 13.0-16.5 [facility] Work Phone: Blood lymphocytes/100 leukoc yteson 11-21-2021 Lymphocytes/100 WBC (Bld) 18.4 % 19-41 [facility] Work Phone: Blood monocytes/100 leukocyt eson 11-21-2021 Monocytes/100 WBC (Bld) 9.9 % 0-10 [facility] Work Phone: Blood platelet mean volumeon 11-21-2021 Platelet mean volume (Bld) [Entitic vol] 12.4 fL 6.2-12.0 [facility] Work Phone: Determination of erythrocyte mean corpuscular volume (MCV)on 11-21-2021 MCV (RBC) [Entitic vol] 89.1 fL 80-94 [facility] Work Phone: Hematocrit Auto (Bld) [Volum e fraction]on 11-21-2021 Hematocrit (Bld) [Volume fraction] 45.1 % 40-54 [facility] Work Phone: Laboratory - Chemistry and C hemistry - challengeon 11-21-2021 CO2 [Moles/Vol] 27.0 mmol/L 21.0-32.0 [facility] Work Phone: Natriuretic peptide B (Bld) [Mass/Vol] 60.9 pg/mL 0-100 [facility] Work Phone: Urea nitrogen/Creatinine [Mass ratio] 12.9 mg/mg 10-20 [facility] Work Phone: Laboratory - Hematology and Cell countson 11-21-2021 Erythrocyte distribution width (RBC) [Entitic vol] 45.1 fL 35.1-43.9 [facility] Work Phone: Erythrocyte distribution width (RBC) [Ratio] 14.0 % 11.6-14.6 [facility] Work Phone: Immature granulocytes/100 WBC (Bld) 0.400 % 0.0-0.9 [facility] Work Phone: Comment on above: IG% - Immature Granu locytes (promyelocytes, myelocytes and metamyelocytes) > 1% indicates that a LEFT SHIFT is Present. MCH (RBC) [Entitic mass] 28.3 pg 27.0-32.0 [facility] Work Phone: Nucleated RBC/100 WBC (Bld) [Ratio] 0 % 0-5 [facility] Work Phone: MCHC Auto (RBC) [Mass/Vol]on 11-21-2021 MCHC (RBC) [Mass/Vol] 31.7 g/dL 32-36 [facility] Work Phone: No Panel Informationon 11-21 Estimated GFR (MDRD) Amer 63 mL/min >60 [facility] Work Phone: Comment on above: GFR Calc Estimated GFR (MDRD) Non-Af Amer 52 mL/min >60 [facility] Work Phone: Comment on above: Non- GFR Calc Platelets bldon 11-21-2021 Platelets (Bld) [#/Vol] 135 10*3/uL 150-450 [facility] Work Phone: Serum or plasma calcium francine urement (mass/volume)on 11-21-2021 Calcium [Mass/Vol] 8.9 mg/dL 8.5-10.1 [facility] Work Phone: Serum or plasma creatinine m easurement (mass/volume)on 11-21-2021 Creatinine [Mass/Vol] 1.40 mg/dL 0.70-1.30 [facility] Work Phone: Comment on above: The validity of the calculated GFR & GFRAA in patients over 70 years has not been determined. Clinical correlation is essential. Serum or plasma urea nitroge n measurement (mass/volume)on 11-21-2021 Urea nitrogen [Mass/Vol] 18 mg/dL 7-18 [facility] Work Phone: Thin prep Papanicolaou smear with manual screeningon 11-21-2021 Thin prep Papanicolaou smear with manual screening 7 5-15 [facility] Work Phone: Absolute lymphocyte counton 11-16-2021 Lymphocytes Auto (Unsp spec) [#/Vol] 2.06 10*3/uL 0.83-4.51 [facility] Work Phone: Basophil percentageon 2021 Basophils/100 WBC (Bld) 0.3 % 0-1 [facility] Work Phone: Chloride [Moles/Vol] 104 mmol/L 98-107 [facility] Work Phone: Eosinophils/100 WBC (Bld) 1.4 % 0-5 [facility] Work Phone: Glucose [Mass/Vol] 170 mg/dL 74-106 [facility] Work Phone: Comment on above: Fasting Glucose resu lt greater than or equal to 126 mg/dL suggests DIABETES MELLITUS per A.D.A. criteria. Neutrophils (Bld) [#/Vol] 5.0 10*3/uL 2.0-7.7 [facility] Work Phone: Neutrophils/100 WBC (Bld) 62.3 % 47-70 [facility] Work Phone: Potassium [Moles/Vol] 4.4 mmol/L 3.5-5.1 [facility] Work Phone: Comment on above: Slight Hemolysis, Re sult may be falsely increased. Sodium [Moles/Vol] 137 mmol/L 136-145 [facility] Work Phone: WBC (Bld) [#/Vol] 7.9 10*3/uL 4.4-11.0 [facility] Work Phone: Blood erythrocytes count (nu mber/volume)on 11-16-2021 RBC (Bld) [#/Vol] 5.42 10*6/uL 4.6-6.2 [facility] Work Phone: Blood hemoglobin measurement (mass/volume)on 11-16-2021 Hemoglobin (Bld) [Mass/Vol] 15.6 g/dL 13.0-16.5 [facility] Work Phone: Blood lymphocytes/100 leukoc yteson 11-16-2021 Lymphocytes/100 WBC (Bld) 26.0 % 19-41 [facility] Work Phone: Blood monocytes/100 leukocyt eson 11-16-2021 Monocytes/100 WBC (Bld) 9.6 % 0-10 [facility] Work Phone: Blood platelet mean volumeon 11-16-2021 Platelet mean volume (Bld) [Entitic vol] 12.9 fL 6.2-12.0 [facility] Work Phone: Determination of erythrocyte mean corpuscular volume (MCV)on 11-16-2021 MCV (RBC) [Entitic vol] 89.3 fL 80-94 [facility] Work Phone: Hematocrit Auto (Bld) [Volum e fraction]on 11-16-2021 Hematocrit (Bld) [Volume fraction] 48.4 % 40-54 [facility] Work Phone: Laboratory - Chemistry and C hemistry - challengeon 11-16-2021 CO2 [Moles/Vol] 27.0 mmol/L 21.0-32.0 [facility] Work Phone: Urea nitrogen/Creatinine [Mass ratio] 11.6 mg/mg 10-20 [facility] Work Phone: Laboratory - Hematology and Cell countson 11-16-2021 Erythrocyte distribution width (RBC) [Entitic vol] 44.5 fL 35.1-43.9 [facility] Work Phone: Erythrocyte distribution width (RBC) [Ratio] 13.8 % 11.6-14.6 [facility] Work Phone: Immature granulocytes/100 WBC (Bld) 0.400 % 0.0-0.9 [facility] Work Phone: Comment on above: IG% - Immature Granu locytes (promyelocytes, myelocytes and metamyelocytes) > 1% indicates that a LEFT SHIFT is Present. MCH (RBC) [Entitic mass] 28.8 pg 27.0-32.0 [facility] Work Phone: Nucleated RBC/100 WBC (Bld) [Ratio] 0 % 0-5 [facility] Work Phone: MCHC Auto (RBC) [Mass/Vol]on 11-16-2021 MCHC (RBC) [Mass/Vol] 32.2 g/dL 32-36 [facility]: No Panel Informationon 11-16 Troponin I High Sensitivity 7 pg/mL 3.0-78.0 [facility] Work Phone: Comment on above: Please Note: New [place] t Units and Gender Specific Reference Ranges. For more information see Policy Stat Procedure [place] High Sensitivity Troponin (TNIH) and attachments. Estimated Creatinine Clearance Calc 45.54 ml/min [facility] Work Phone: Estimated GFR (MDRD) Amer 64 mL/min >60 [facility] Work Phone: Comment on above: GFR Calc Estimated GFR (MDRD) Non-Af Amer 53 mL/min >60 [facility] Work Phone: Comment on above: Non- GFR Calc Platelets bldon 11-16-2021 Platelets (Bld) [#/Vol] 142 10*3/uL 150-450 [facility] Work Phone: Serum or plasma calcium francine urement (mass/volume)on 11-16-2021 Calcium [Mass/Vol] 9.2 mg/dL 8.5-10.1 [facility] Work Phone: Serum or plasma creatinine m easurement (mass/volume)on 11-16-2021 Creatinine [Mass/Vol] 1.38 mg/dL 0.70-1.30 [facility] Work Phone: Comment on above: The validity of the calculated GFR & GFRAA in patients over 70 years has not been determined. Clinical correlation is essential. Serum or plasma urea nitroge n measurement (mass/volume)on 11-16-2021 Urea nitrogen [Mass/Vol] 16 mg/dL 7-18 [facility] Work Phone: Thin prep Papanicolaou smear with manual screeningon 11-16-2021 Thin prep Papanicolaou smear with manual screening 6 5-15 [facility] Work Phone: Basophil percentageon 2021 Chloride [Moles/Vol] 105 mmol/L 98-107 [facility] Work Phone: Glucose [Mass/Vol] 246 mg/dL 74-106 [facility] Work Phone: Comment on above: Glucose result great er than or equal to 200 mg/dLsuggests DIABETES MELLITUS per A.D.A. criteria. Potassium [Moles/Vol] 4.2 mmol/L 3.5-5.1 [facility] Work Phone: Sodium [Moles/Vol] 137 mmol/L 136-145 [facility] Work Phone: Laboratory - Chemistry and C hemistry - challengeon 10-28-2021 CO2 [Moles/Vol] 24.0 mmol/L 21.0-32.0 [facility] Work Phone: Urea nitrogen/Creatinine [Mass ratio] 15.6 mg/mg 10-20 [facility] Work Phone: No Panel Informationon 10-28 Estimated GFR (MDRD) Amer 74 mL/min >60 [facility] Work Phone: Comment on above: GFR Calc Estimated GFR (MDRD) Non-Af Amer 61 mL/min >60 [facility] Work Phone: Comment on above: Non- GFR Calc Serum or plasma calcium francine urement (mass/volume)on 10-28-2021 Calcium [Mass/Vol] 8.9 mg/dL 8.5-10.1 [facility] Work Phone: Serum or plasma creatinine m easurement (mass/volume)on 10-28-2021 Creatinine [Mass/Vol] 1.22 mg/dL 0.70-1.30 [facility] Work Phone: Comment on above: The validity of the calculated GFR & GFRAA in patients over 70 years has not been determined. Clinical correlation is essential. Serum or plasma urea nitroge n measurement (mass/volume)on 10-28-2021 Urea nitrogen [Mass/Vol] 19 mg/dL 7-18 [facility] Work Phone: Thin prep Papanicolaou smear with manual screeningon 10-28-2021 Thin prep Papanicolaou smear with manual screening 8 5-15 [facility] Work Phone: Whole blood hemoglobin A1c/t otal hemoglobin ratio (mass fraction)on 10-28-2021 HbA1c (Bld) [Mass fraction] 7.7 % 3.8-5.6 [facility] Work Phone: Comment on above: Normal < 5.7 % Predi abetic 5.7 - 6.4 % Diabetic >or= 6.5 % Please note range changes. Absolute lymphocyte counton 09-16-2021 Lymphocytes Auto (Unsp spec) [#/Vol] 1.24 10*3/uL 0.83-4.51 [facility] Work Phone: Basophil percentageon 2021 Basophils/100 WBC (Bld) 0.5 % 0-1 [facility] Work Phone: Chloride [Moles/Vol] 107 mmol/L 98-107 [facility] Work [facility]: Eosinophils/100 WBC (Bld) 1.7 % 0-5 [facility] Work Phone: Glucose [Mass/Vol] 134 mg/dL 74-106 [facility] Work Phone: Comment on above: Fasting Glucose resu lt greater than or equal to 126 mg/dL suggests DIABETES MELLITUS per A.D.A. criteria. Neutrophils (Bld) [#/Vol] 4.4 10*3/uL 2.0-7.7 [facility] Work Phone: Neutrophils/100 WBC (Bld) 68.0 % 47-70 [facility] Work Phone: [phone] Potassium [Moles/Vol] 4.3 mmol/L 3.5-5.1 [facility] Work Phone: Sodium [Moles/Vol] 139 mmol/L 136-145 [facility] Work Phone: [phone] WBC (Bld) [#/Vol] 6.4 10*3/uL 4.4-11.0 [facility] Work Phone: Blood erythrocytes count (nu mber/volume)on 09-16-2021 RBC (Bld) [#/Vol] 4.84 10*6/uL 4.6-6.2 [facility] Work Phone: Blood hemoglobin measurement (mass/volume)on 09-16-2021 Hemoglobin (Bld) [Mass/Vol] 14.1 g/dL 13.0-16.5 [facility] Work Phone: Blood lymphocytes/100 leukoc yteson 09-16-2021 Lymphocytes/100 WBC (Bld) 19.3 % 19-41 [facility] Work Phone: Blood monocytes/100 leukocyt eson 09-16-2021 Monocytes/100 WBC (Bld) 10.0 % 0-10 [facility] Work Phone: Blood platelet mean volumeon 09-16-2021 Platelet mean volume (Bld) [Entitic vol] 12.7 fL 6.2-12.0 [facility] Work Phone: Determination of erythrocyte mean corpuscular volume (MCV)on 09-16-2021 MCV (RBC) [Entitic vol] 90.1 fL 80-94 [facility] Work Phone: Hematocrit Auto (Bld) [Volum e fraction]on 09-16-2021 Hematocrit (Bld) [Volume fraction] 43.6 % 40-54 [facility] Work Phone: Laboratory - Chemistry and C hemistry - challengeon 09-16-2021 CO2 [Moles/Vol] 27.0 mmol/L 21.0-32.0 [facility] Work Phone: Natriuretic peptide B (Bld) [Mass/Vol] 80.9 pg/mL 0-100 [facility] Work Phone: Urea nitrogen/Creatinine [Mass ratio] 13.7 mg/mg 10-20 [facility] Work Phone: Laboratory - Hematology and Cell countson 09-16-2021 Erythrocyte distribution width (RBC) [Entitic vol] 46.2 fL 35.1-43.9 [facility] Work Phone: Erythrocyte distribution width (RBC) [Ratio] 13.9 % 11.6-14.6 [facility] Work Phone: Immature granulocytes/100 WBC (Bld) 0.500 % 0.0-0.9 [facility] Work Phone: Comment on above: IG% - Immature Granu locytes (promyelocytes, myelocytes and metamyelocytes) > 1% indicates that a LEFT SHIFT is Present. MCH (RBC) [Entitic mass] 29.1 pg 27.0-32.0 [facility] Work Phone: Nucleated RBC/100 WBC (Bld) [Ratio] 0 % 0-5 [facility] Work Phone: MCHC Auto (RBC) [Mass/Vol]on 09-16-2021 MCHC (RBC) [Mass/Vol] 32.3 g/dL 32-36 [facility] Work Phone: No Panel Informationon 09-16 Estimated GFR (MDRD) Amer 73 mL/min >60 [facility] Work Phone: Comment on above: GFR Calc Estimated GFR (MDRD) Non-Af Amer 60 mL/min >60 [facility] Work Phone: Comment on above: Non- GFR Calc Platelets bldon 09-16-2021 Platelets (Bld) [#/Vol] 133 10*3/uL 150-450 [facility] Work Phone: Serum or plasma calcium francine urement (mass/volume)on 09-16-2021 Calcium [Mass/Vol] 9.0 mg/dL 8.5-10.1 [facility] Work Phone: Serum or plasma creatinine m easurement (mass/volume)on 09-16-2021 Creatinine [Mass/Vol] 1.24 mg/dL 0.70-1.30 [facility] Work Phone: Comment on above: The validity of the calculated GFR & GFRAA in patients over 70 years has not been determined. Clinical correlation is essential. Serum or plasma urea nitroge n measurement (mass/volume)on 09-16-2021 Urea nitrogen [Mass/Vol] 17 mg/dL 7-18 [facility] Work Phone: Thin prep Papanicolaou smear with manual screeningon 09-16-2021 Thin prep Papanicolaou smear with manual screening 5 5-15 [facility] Work Phone: Absolute lymphocyte counton 06-10-2021 Lymphocytes Auto (Unsp spec) [#/Vol] 1.00 10*3/uL 0.83-4.51 [facility] Work Phone: Basophil percentageon 2021 Basophils/100 WBC (Bld) 0.3 % 0-1 [facility] Work Phone: [phone] Chloride [Moles/Vol] 107 mmol/L 98-107 [facility] Work Phone: Eosinophils/100 WBC (Bld) 1.7 % 0-5 [facility] Work Phone: Glucose [Mass/Vol] 150 mg/dL 74-106 [facility] Work Phone: Comment on above: Fasting Glucose resu lt greater than or equal to 126 mg/dL suggests DIABETES MELLITUS per A.D.A. criteria. Neutrophils (Bld) [#/Vol] 4.9 10*3/uL 2.0-7.7 [facility] Work Phone: Neutrophils/100 WBC (Bld) 73.8 % 47-70 [facility] Work Phone: Potassium [Moles/Vol] 5.6 mmol/L 3.5-5.1 [facility] Work Phone: Comment on above: Moderate Hemolysis, Result may be falsely increased. Sodium [Moles/Vol] 139 mmol/L 136-145 [facility] Work Phone: WBC (Bld) [#/Vol] 6.7 10*3/uL 4.4-11.0 [facility] Work Phone: Blood erythrocytes count (nu mber/volume)on 06-10-2021 RBC (Bld) [#/Vol] 5.17 10*6/uL 4.6-6.2 [facility] Work Phone: Blood hemoglobin measurement (mass/volume)on 06-10-2021 Hemoglobin (Bld) [Mass/Vol] 15.5 g/dL 13.0-16.5 [facility] Work Phone: Blood lymphocytes/100 leukoc yteson 06-10-2021 Lymphocytes/100 WBC (Bld) 15.0 % 19-41 [facility] Work Phone: Blood monocytes/100 leukocyt eson 06-10-2021 Monocytes/100 WBC (Bld) 8.7 % 0-10 [facility] Work Phone: Blood platelet mean volumeon 06-10-2021 Platelet mean volume (Bld) [Entitic vol] 12.7 fL 6.2-12.0 [facility] Work Phone: Determination of erythrocyte mean corpuscular volume (MCV)on 06-10-2021 MCV (RBC) [Entitic vol] 89.6 fL 80-94 [facility] Work Phone: Hematocrit Auto (Bld) [Volum e fraction]on 06-10-2021 Hematocrit (Bld) [Volume fraction] 46.3 % 40-54 [facility] Work Phone: Laboratory - Chemistry and C hemistry - challengeon 06-10-2021 CO2 [Moles/Vol] 28.0 mmol/L 21.0-32.0 [facility] Work Phone: Urea nitrogen/Creatinine [Mass ratio] 12.7 mg/mg 10-20 [facility] Work Phone: Laboratory - Hematology and Cell countson 06-10-2021 Erythrocyte distribution width (RBC) [Entitic vol] 45.9 fL 35.1-43.9 [facility] Work Phone: Erythrocyte distribution width (RBC) [Ratio] 14.1 % 11.6-14.6 [facility] Work Phone: Immature granulocytes/100 WBC (Bld) 0.500 % 0.0-0.9 [facility] Work Phone: Comment on above: IG% - Immature Granu locytes (promyelocytes, myelocytes and metamyelocytes) > 1% indicates that a LEFT SHIFT is Present. MCH (RBC) [Entitic mass] 30.0 pg 27.0-32.0 [facility] Work Phone: Nucleated RBC/100 WBC (Bld) [Ratio] 0 % 0-5 [facility] Work Phone: MCHC Auto (RBC) [Mass/Vol]on 06-10-2021 MCHC (RBC) [Mass/Vol] 33.5 g/dL 32-36 [facility] Work Phone: No Panel Informationon 06-10 Troponin I High Sensitivity 10 pg/mL 3.0-78.0 [facility] Work Phone: Comment on above: Please Note: New [place] t Units and Gender Specific Reference Ranges. For more information see Policy Stat Procedure [place] High Sensitivity Troponin (TNIH) and attachments. Estimated Creatinine Clearance Calc 47.63 ml/min [facility] Work Phone: Estimated GFR (MDRD) Amer 67 mL/min >60 [facility] Work Phone: Comment on above: GFR Calc Estimated GFR (MDRD) Non-Af Amer 55 mL/min >60 [facility] Work Phone: Comment on above: Non- GFR Calc Platelets bldon 06-10-2021 Platelets (Bld) [#/Vol] 146 10*3/uL 150-450 [facility] Work Phone: Serum or plasma calcium francine urement (mass/volume)on 06-10-2021 Calcium [Mass/Vol] 8.7 mg/dL 8.5-10.1 [facility] Work Phone: Serum or plasma creatinine m easurement (mass/volume)on 06-10-2021 Creatinine [Mass/Vol] 1.34 mg/dL 0.70-1.30 [facility] Work Phone: Comment on above: The validity of the calculated GFR & GFRAA in patients over 70 years has not been determined. Clinical correlation is essential. Serum or plasma urea nitroge n measurement (mass/volume)on 06-10-2021 Urea nitrogen [Mass/Vol] 17 mg/dL 7-18 [facility] Work Phone: Thin prep Papanicolaou smear with manual screeningon 06-10-2021 Thin prep Papanicolaou smear with manual screening 4 5-15 [facility] Work Phone: Absolute lymphocyte counton 05-19-2021 Lymphocytes Auto (Unsp spec) [#/Vol] 1.72 10*3/uL 0.83-4.51 [facility] Work Phone: Basophil percentageon 2021 Basophils/100 WBC (Bld) 0.4 % 0-1 [facility] Work Phone: Bilirubin [Mass/Vol] 1.20 mg/dL 0.20-1.00 [facility] Work Phone: Comment on above: For patients on eltr ombopag therapy, use of Dimension [place] TBIL is not recommended. Chloride [Moles/Vol] 106 mmol/L 98-107 [facility] Work Phone: [phone] Eosinophils/100 WBC (Bld) 1.2 % 0-5 [facility] Work Phone: [phone] Glucose [Mass/Vol] 182 mg/dL 74-106 [facility] Work Phone: Comment on above: Fasting Glucose resu lt greater than or equal to 126 mg/dL suggests DIABETES MELLITUS per A.D.A. criteria. Neutrophils (Bld) [#/Vol] 6.6 10*3/uL 2.0-7.7 [facility] Work Phone: Neutrophils/100 WBC (Bld) 70.5 % 47-70 [facility] Work Phone: Potassium [Moles/Vol] 3.8 mmol/L 3.5-5.1 [facility] Work Phone: Protein [Mass/Vol] 7.9 g/dL 6.4-8.2 [facility] Work Phone: Sodium [Moles/Vol] 139 mmol/L 136-145 [facility] Work Phone: WBC (Bld) [#/Vol] 9.4 10*3/uL 4.4-11.0 [facility] Work Phone: Basophil percentage 0 SEEN /hpf [facility] Work Phone: Bilirubin Test strip Ql (U)o n 05-19-2021 Bilirubin Ql (U) Negative Negative [facility] Work Phone: Blood erythrocytes count (nu mber/volume)on 05-19-2021 RBC (Bld) [#/Vol] 5.30 10*6/uL 4.6-6.2 [facility] Work Phone: Blood hemoglobin measurement (mass/volume)on 05-19-2021 Hemoglobin (Bld) [Mass/Vol] 15.3 g/dL 13.0-16.5 [facility] Work Phone: Blood lymphocytes/100 leukoc yteson 05-19-2021 Lymphocytes/100 WBC (Bld) 18.3 % 19-41 [facility] Work Phone: Blood monocytes/100 leukocyt eson 05-19-2021 Monocytes/100 WBC (Bld) 9.3 % 0-10 [facility] Work Phone: Blood platelet mean volumeon 05-19-2021 Platelet mean volume (Bld) [Entitic vol] 12.5 fL 6.2-12.0 [facility] Work Phone: Determination of erythrocyte mean corpuscular volume (MCV)on 05-19-2021 MCV (RBC) [Entitic vol] 89.8 fL 80-94 [facility] Work Phone: Hematocrit Auto (Bld) [Volum e fraction]on 05-19-2021 Hematocrit (Bld) [Volume fraction] 47.6 % 40-54 [facility] Work Phone: Ketones Test strip Ql (U)on 05-19-2021 Ketones Ql (U) Negative Negative [facility] Work Phone: Laboratory - Chemistry and C hemistry - challengeon 05-19-2021 ALP [Catalytic activity/Vol] 156 U/L 45-117 [facility] Work Phone: ALT [Catalytic activity/Vol] 44 U/L 16-61 [facility] Work Phone: CO2 [Moles/Vol] 26.0 mmol/L 21.0-32.0 [facility] Work Phone: Globulin (S) [Mass/Vol] 4.2 g/dL 2.2-4.2 [facility] Work Phone: Lipase [Catalytic activity/Vol] 199 U/L 73-393 [facility] Work Phone: Urea nitrogen/Creatinine [Mass ratio] 13.8 mg/mg 10-20 [facility] Work Phone: Laboratory - Hematology and Cell [place] 05-19-2021 Erythrocyte distribution width (RBC) [Entitic vol] 46.7 fL 35.1-43.9 [facility] Work Phone: Erythrocyte distribution width (RBC) [Ratio] 14.3 % 11.6-14.6 [facility] Work Phone: Immature granulocytes/100 WBC (Bld) 0.300 % 0.0-0.9 [facility] Work Phone: Comment on above: IG% - Immature Granu locytes (promyelocytes, myelocytes and metamyelocytes) > 1% indicates that a LEFT SHIFT is Present. MCH (RBC) [Entitic mass] 28.9 pg 27.0-32.0 [facility] Work Phone: Nucleated RBC/100 WBC (Bld) [Ratio] 0 % 0-5 [facility] Work Phone: MCHC Auto (RBC) [Mass/Vol]on 05-19-2021 MCHC (RBC) [Mass/Vol] 32.1 g/dL 32-36 [facility] Work Phone: Mucus LM Ql (Urine sed)on Mucus Ql (Urine sed) 0 SEEN /hpf [facility] Work Phone: Nitrite Test strip Ql (U)on 05-19-2021 Nitrite Ql (U) Negative Negative [facility] Work Phone: No Panel Informationon 05-19 Estimated Creatinine Clearance Calc 46.25 ml/min [facility] Work Phone: Estimated GFR (MDRD) Amer 65 mL/min >60 [facility] Work Phone: Comment on above: GFR Calc Estimated GFR (MDRD) Non-Af Amer 53 mL/min >60 [facility] Work Phone: Comment on above: Non- GFR Calc Platelets bldon 05-19-2021 Platelets (Bld) [#/Vol] 158 10*3/uL 150-450 [facility] Work Phone: Protein Test strip Ql (U)on 05-19-2021 Protein Ql (U) Negative Negative [facility] Work Phone: Serum or plasma albumin francine urement (mass/volume)on 05-19-2021 Albumin [Mass/Vol] 3.7 g/dL 3.2-5.0 [facility] Work Phone: Serum or plasma albumin/glob ulin mass ratioon 05-19-2021 Albumin/Globulin [Mass ratio] 0.9 {ratio} 0.9-2.4 [facility] Work Phone: Serum or plasma calcium francine urement (mass/volume)on 05-19-2021 Calcium [Mass/Vol] 9.2 mg/dL 8.5-10.1 [facility] Work Phone: Serum or plasma creatinine m easurement (mass/volume)on 05-19-2021 Creatinine [Mass/Vol] 1.38 mg/dL 0.70-1.30 [facility] Work Phone: Comment on above: The validity of the calculated GFR & GFRAA in patients over 70 years has not been determined. Clinical correlation is essential. Serum or plasma urea nitroge n measurement (mass/volume)on 05-19-2021 Urea nitrogen [Mass/Vol] 19 mg/dL 7-18 [facility] Work Phone: Squamous epithelial cells de tection in urine sediment by light microscopyon 05-19-2021 Epithelial cells.squamous LM Ql (Urine sed) 0 SEEN /hpf [facility] Work Phone: Thin prep Papanicolaou smear with manual screeningon 05-19-2021 Thin prep Papanicolaou smear with manual screening 25 U/L 15-37 [facility] Work Phone: Thin prep Papanicolaou smear with manual screening 7 5-15 [facility] Work Phone: Urine blood detectionon 05-03 RBC Ql (U) Negative Negative [facility] Work Phone: RBC Ql (U) 0 SEEN /hpf [facility] Work Phone: Urine clarityon 05-19-2021 Clarity (U) Clear Clear [facility] Work Phone: Urine color determinationon 05-19-2021 Color (U) Straw Yellow [facility] Work Phone: Urine glucose detectionon Glucose Ql (U) Normal mg/dl Normal [facility] Work Phone: Urine leukocyte esterase det ection by dipstickon 05-19-2021 Leukocyte esterase Test strip Ql (U) Negative Negative [facility] Work Phone: Urine pHon 05-19-2021 pH (U) 5.0 [pH] [facility] Work Phone: Urine sediment bacteria coun t by microscopy (number/high power field)on 05-19-2021 Bacteria LM.HPF (Urine sed) [#/Area] 0 /[HPF] None Seen [facility] Work Phone: Urine specific gravity measu rementon 05-19-2021 Specific gravity (U) [Rel density] 1.010 [facility] Work Phone: Urobilinogen Auto test strip Ql (U)on 05-19-2021 Urobilinogen Ql (U) Normal mg/dl Normal [facility] Work Phone: CT ANGIOGRAM AORTA CHEST [...] descending thoracic aorta is tortuous within its hjl-[id number] course but is not aneurysmal. The abdominal [...] particularly at L4-L5 and L5-S1. IMAGING FACILITY: [facility]. 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 Physician: PROCEDURE(S) PERFORMED: Clinical History: Prior smoker, quit date: Diabetes Mellitus: Yes Hypertension: Yes Dyslipidemia: Yes Prior [place]: Yes Other: Stroke Prior PCI: Yes 2016 [...] right femoral artery - 6F. 10 cm [place] Catheters were advanced using standard guide wire technique. Multiple angiographic pictures were taken and appropriate pressures obtained. Hemodynamics: Time AIR REST AO 137/67 (94) SA 10:36:02 LV 130/9, 32 10:37:19 LV 0/21, 0 10:37:28 LVp 147/1, 24 10:37:32 After review of the angiography and assurance of the patient's stability, the catheter was withdrawn from the sheath and CORONARY_ANGIO/FINDINGS Tubular 30% Proximal lesion in LAD Luminal [...] Equipment: Sheath(s) VASC[employer]IONS 4F MICROPUNCTURE KIT Jampp 6F 10CM [place] SHEATH Wire(s) [employer] J WIRE FIXED MERIT .035 X 150CM GUIDEWIRE Catheter(s) gate5 JR4 DIAG CATH 6F gate5 JR4 DIAG CATH 6F gate5 PIGTAIL STRAIGHT DIAG CATH 6F See Nursing Notes for further details Signed By Eladio Ingram MD On 01/10/2021 11:05:05 Eladio Ingram MD _ _ [facility] ECHOCARDIOGRAM 2D COMPLETEOr dered By: Eladio Ingram on 10-15-2020 Aortic valve area 2.09006 cm [facility] AV mean gradient 6 mmHg [facility] EF 62.7797 % [facility] Patient Info Name: Morro RICO Age: 75 years : 1945 Gender: Male Ht: 175 cm Wt: 106 kg BSA: 2.31 m2 HR: 50 bpm BP: 134 / 72 mmHg Heart Rhythm: Bradycardia, Sinus Rhythm Technical Quality: Fair, Technically difficult Exam Date: 10/15/2020 12:57 PM Patient Status: Outpatient Enrichment Director: Tracy Bonilla, RDCS, RVT Exam Type: ECHOCARDIOGRAM COMPLETE W CONTRAST Study Info Indications - Dyspnea Attending Physician: ELADIO INGRAM Referring Physician: ELADIO INGRAM ; [id number] BMI: 34.56 kg/m2 Summary 1. Left ventricular systolic function is normal, with ejection fraction estimated at 60 +/- 5%. 2. The left ventricular diastolic function is normal. 3. 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 4. There is no aortic valve stenosis. History/Risk Factors Hypertension: Yes Dyslipidemia: Yes Diabetic Therapy: Oral Peripheral Arterial Disease (PAD): Yes Myocardial Infarction ([place]): Yes Coronary Artery Disease (CAD) Yes Congestive Heart Failure (CHF): Hx CHF Date of Prior [place]: 05/03/2008 Diabetes Mellitus: Yes History/Risk Factors sleep [...] Velocity 1.09 m/s (more content not included)... [facility], Rad In artlab [employer]per Ech[employer] - 10/15/2020 4:30 PM EDT Patient Info Name: ERIBERTO RICO Age: 75 years : 1945 Gender: Male Ht: 175 cm Wt: 106 kg BSA: 2.31 m2 HR: 50 bpm BP: 134 / 72 mmHg Heart Rhythm: Bradycardia, Sinus Rhythm Technical Quality: Fair, Technically difficult Exam Date: 10/15/2020 12:57 PM Patient Status: Outpatient Enrichment Director: Tracy Bonilla, MONICACS, RVT Exam Type: ECHOCARDIOGRAM COMPLETE W CONTRAST Study Info Indications - Dyspnea Attending Physician: ELADIO INGRAM Referring Physician: ELADIO INGRAM ; [id number] BMI: 34.56 kg/m2 Summary 1. Left ventricular systolic function is normal, with ejection fraction estimated at 60 +/- 5%. 2. The left ventricular diastolic function is normal. 3. 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 4. There is no aortic valve stenosis. History/Risk Factors Hypertension: Yes Dyslipidemia: Yes Diabetic Therapy: Oral Peripheral Arterial Disease (PAD): Yes Myocardial Infarction ([place]): Yes Coronary Artery Disease (CAD) Yes Congestive Heart Failure (CHF): Hx CHF Date of Prior [place]: 05/03/2008 Diabetes Mellitus: Yes History/Risk Factors sleep [...] mmHg MV VTI 46 cm MV Decel Holt 333 cm/s2 MV PHT 38 ms MV Area (PHT) 5.8 cm2 4.0-5.0 MV Area (Cont Eq VTI) 2.5 cm2 MV Area Index (Cont Eq VTI) 1.06 cm2/m2 MV Di (more content not included)... [facility] ECHOCARDIOGRAM COMPLETE W CO NTRASTon 10-15-2020 ECHOCARDIOGRAM COMPLETE W CONTRAST Patient Info Name: ERIBERTO RICO Age: 75 years : 1945 Gender: Male Ht: 175 cm Wt: 106 kg BSA: 2.31 m2 HR: 50 bpm BP: 134 / 72 mmHg Heart Rhythm: Bradycardia, Sinus Rhythm Technical Quality: Fair, Technically difficult Exam Date: 10/15/2020 12:57 PM Patient Status: Outpatient Enrichment Director: Tracy Bonilla, DRU, RVT Exam Type: ECHOCARDIOGRAM COMPLETE W CONTRAST Study Info Indications - Dyspnea Attending Physician: ELADIO INGRAM Referring Physician: ELADIO INGRAM ; [id number] BMI: 34.56 kg/m2 Summary 1. Left ventricular systolic function is normal, with ejection fraction estimated at 60 +/- 5%. 2. The left ventricular diastolic function is normal. 3. 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 4. There is no aortic valve stenosis. History/Risk Factors Hypertension: Yes Dyslipidemia: Yes Diabetic Therapy: Oral Peripheral Arterial Disease (PAD): Yes Myocardial Infarction ([place]): Yes Coronary Artery Disease (CAD) Yes Congestive Heart Failure (CHF): Hx CHF Date of Prior [place]: 05/03/2008 Diabetes Mellitus: Yes History/Risk Factors sleep [...] mmHg MV VTI 46 cm MV Decel Holt 333 cm/s2 MV PHT 38 ms MV Area (PHT) 5.8 cm2 4.0-5.0 MV Area (Cont Eq VTI) 2.5 cm2 MV Area Index (Cont Eq VTI) 1.06 cm2/m2 MV Diastolic Function MV E Peak Velocity 1 m/s MV A Peak Velocity 1 m/s MV E/A 1.2 MV (more content not included)... Normal [facility] Ambulatory ECG 12-LEADOrdered By: Fernanda Acuña on 10-09-2020 Atrial Rate [facility] P [facility] P-R Interval [facility] Q-T Interval [facility] Q-T Interval (corrected) [facility] QRS Duration [facility] QTC Calculation (Bezet) [facility] R [facility] T [facility] Ventricular Rate [facility] Auto Diffon 09-15-2018 Basophils #/vol (Bld) 0.0 E3/mcL Normal 0.0-0.2 [facility] Comment on above: Order Comment: Order Added by Discern Expert. Performed By: #### 2 [id number] #### [employer] [address] [place] [address] Basophils/100 WBC (Bld) 0.6 % Normal 0.0-2.0 [facility] Comment on above: Order Comment: Order Added by Discern Expert. Performed By: #### 2 [id number] #### [employer] [address] [place] [address] Eos Absolute 0.1 E3/mcL Normal 0.0-0.7 [facility] Comment on above: Order Comment: Order Added by Discern Expert. Performed By: #### 2 [id number] #### [employer] [address] [place] [address] 20389 Eosinophils/100 WBC (Bld) 2.2 % Normal 0.0-11.0 [facility] Comment on above: Order Comment: Order Added by Discern Expert. Performed By: #### 2 [id number] #### [employer] [address] [place] [address] 94193 Lymphocytes #/vol (Bld) 1.9 E3/mcL Normal 1.2-3.4 [facility] Comment on above: Order Comment: Order Added by Discern Expert. Performed By: #### 2 [id number] #### [employer] [address] [place] [address] 11267 Lymphocytes/100 WBC (Bld) 31.0 % Normal 20.0-55.0 [facility] Comment on above: Order Comment: Order Added by Discern Expert. Performed By: #### 2 [id number] #### [employer] [address] [place] [address] [place] Absolute 0.8 E3/mcL High 0.0-0.7 [facility] Comment on above: Order Comment: Order Added by Discern Expert. Performed By: #### 2 [id number] #### [employer] [address] [place] [address] 21185 Monocytes/100 WBC (Bld) 13.2 % High 0.0-10.0 [facility] Comment on above: Order Comment: Order Added by Discern Expert. Performed By: #### 2 [id number] #### [employer] [address] [place] [address] 87425 Neutro Absolute 3.3 E3/mcL Normal 1.4-6.5 [facility] Comment on above: Order Comment: Order Added by Discern Expert. Performed By: #### 2 [id number] #### [employer] [address] [place] [address]389 Neutro Auto 53.0 % Normal 37.0-75.0 [facility] Comment on above: Order Comment: Order Added by Discern Expert. Performed By: #### 2 [id number] #### [employer] [address] [place] [address] BMPon 09-15-2018 Anion gap molar conc 10 mmol/L Normal 10-20 [facility] Comment on above: Performed By: #### 2 [id number] #### [employer] [address] [place] [address] Calcium mass conc 8.4 mg/dL Low 8.6-10.3 [facility] Comment on above: Performed By: #### 2 [id number] #### [employer] [address] [place] [address] Chloride molar conc 105 mmol/L Normal 98-[address] [facility] Comment on above: Performed By: #### 2 [id number] #### [employer] [address] [place] [address] CO2 molar conc 26.0 mmol/L Normal 21.0-32.0 [facility] Comment on above: Performed By: #### 2 [id number] #### [employer] [address] [place] [address] Creatinine mass conc 1.1 mg/dL Normal 0.5-1.3 [facility] Comment on above: Performed By: #### 2 [id number] #### [employer] [address] [place] [address] Glucose mass conc 136 mg/dL High 70-99 [facility] Comment on above: Performed By: #### 2 [id number] #### [employer] [address] [place] [address] Potassium molar conc 4.1 mmol/L Normal 3.5-5.3 [facility] Comment on above: Performed By: #### 2 [id number] #### [employer] [address] [place] [address] Sodium molar conc 137 mmol/L Normal 136-145 [facility] Comment on above: Performed By: #### 2 [id number] #### [employer] [address] [place] [address] Urea nitrogen mass conc 19 mg/dL Normal 6-23 [facility] Comment on above: Performed By: #### 2 [id number] #### [employer] [address] [place] [address] Urea nitrogen/Creatinine mass ratio 17.3 ratio Normal 5.4-30.0 [facility] Comment on above: Performed By: #### 2 [id number] #### [employer] [address] [place], [place] [id number] CBC w/ Auto Diffon 9 Erythrocyte distribution width Ratio (RBC) 14.9 % High 11.5-14.5 [facility] Comment on above: Performed By: #### 2 [id number] #### [facility] [employer] [address] [place] [address] Hematocrit Volume Fraction (Bld) 41.5 % Low 42.0-52.0 [facility] Comment on above: Performed By: #### 2 [id number] #### [employer] [address] [place] [address] Hemoglobin mass conc (Bld) 13.6 g/dL Normal 13.5-18.0 [facility] Comment on above: Performed By: #### 2 360368 #### [facility] [employer] [address] [place] [address] MCH Entitic mass (RBC) 29.6 pg Normal 27.0-31.0 [facility] Comment on above: Performed By: #### 2 [id number] #### [employer] [address] [place] [address] MCHC mass conc (RBC) 32.8 g/dL Low 33.0-37.0 [facility] Comment on above: Performed By: #### 2 [id number] #### [employer] [address] [place], [place] [address] MCV Entitic volume (RBC) 90.4 fL Normal 78.0-100.0 [facility] Comment on above: Performed By: #### 2 [id number] #### [employer] [address] [place] [address] Platelet mean volume Entitic volume (Bld) 10.8 fL Normal 7.4-11.0 [facility] Comment on above: Performed By: #### 2 [id number] #### [employer] [address] [place] [address] Platelets #/vol (Bld) 137 E3/mcL Normal 130-400 [facility] Comment on above: Performed By: #### 2 [id number] #### [employer] [address] [place] [address] RBC #/vol (Bld) 4.59 E6/mcL Normal 3.90-6.10 [facility] Comment on above: Performed By: #### 2 [id number] #### [employer] [facility] [place] [address] WBC #/vol (Bld) 6.2 E3/mcL Normal 3.6-11.0 [facility] Comment on above: Performed By: #### 2 614230 #### [employer] [address] [place] [address] Glucose POCon 09-15-2018 Glucose mass conc 163 mg/dL High 70-99 [facility] Comment on above: Performed By: #### 2 289736 #### [employer] [address] [place] [address] Glucose mass conc 99 mg/dL Normal 70-99 [facility] Comment on above: Performed By: #### 2 673756 #### [employer] [address] [place] [address] Troponin-Ion 09-15-2018 Troponin I.cardiac mass conc 0.01 ng/mL Normal 0.00-0.03 [facility] Comment on above: Performed By: #### 2 [id number] #### [employer] [address] [place], [place] [address] eGFRon 09-15-2018 GFR/1.73 sq M predicted among non-blacks MDRD vol rate/area (S/P/Bld) mL/min/{1.73_m2} Normal [facility] Comment on above: Order Comment: Order added by Discern Expert. Performed By: #### 2 [id number] #### [employer] [address] [place] [address] Auto Diffon 09-14-2018 Basophils #/vol (Bld) 0.0 E3/mcL Normal 0.0-0.2 [facility] Comment on above: Order Comment: Order Added by Discern Expert. Performed By: #### 2 [id number] #### [employer] [address] [place] [address] Basophils/100 WBC (Bld) 0.6 % Normal 0.0-2.0 [facility] Comment on above: Order Comment: Order Added by Discern Expert. Performed By: #### 2 [id number] #### [employer] [address] [place] [address] Eos Absolute 0.1 E3/mcL Normal 0.0-0.7 [facility] Comment on above: Order Comment: Order Added by Discern Expert. Performed By: #### 2 612426 #### [employer] [address] [place] [address] 21086 Eosinophils/100 WBC (Bld) 1.7 % Normal 0.0-11.0 [facility] Comment on above: Order Comment: Order Added by Discern Expert. Performed By: #### 2 [id number] #### [employer] [address] [place] [address] Lymphocytes #/vol (Bld) 1.2 E3/mcL Normal 1.2-3.4 [facility] Comment on above: Order Comment: Order Added by Discern Expert. Performed By: #### 2 [id number] #### [employer] [address] [place] [address] 34[address] Lymphocytes/100 WBC (Bld) 16.5 % Low 20.0-55.0 [facility] Comment on above: Order Comment: Order Added by Discern Expert. Performed By: #### 2 [id number] #### [employer] [address] [place] [address] [place] Absolute 0.8 E3/mcL High 0.0-0.7 [facility] Comment on above: Order Comment: Order Added by Discern Expert. Performed By: #### 2 578837 #### [employer] [address] [place] [address] Monocytes/100 WBC (Bld) 11.1 % High 0.0-10.0 [facility] Comment on above: Order Comment: Order Added by Discern Expert. Performed By: #### 2 753650 #### [employer] [address] [place] [address] Neutro Absolute 5.1 E3/mcL Normal 1.4-6.5 [facility] Comment on above: Order Comment: Order Added by Discern Expert. Performed By: #### 2 [id number] #### [employer] [facility] [place] [address] Neutro Auto 70.1 % Normal 37.0-75.0 [facility] Comment on above: Order Comment: Order Added by Discern Expert. Performed By: #### 2 928359 #### [employer] [address] [place] [address] BMPon 09-14-2018 Anion gap molar conc 13 mmol/L Normal 10-20 [facility] Comment on above: Performed By: #### 2 791851 #### [employer] [address] [place] [address] Calcium mass conc 9.2 mg/dL Normal 8.6-10.3 [facility] Comment on above: Performed By: #### 2 [id number] #### [employer] [address] [place] [address] Chloride molar conc 105 mmol/L Normal 98-[address] [facility] Comment on above: Performed By: #### 2 514040 #### [employer] [address] [place] [address]605 CO2 molar conc 24.0 mmol/L Normal 21.0-32.0 [facility] Comment on above: Performed By: #### 2 624256 #### [employer] [address] [place] [address]487 Creatinine mass conc 1.2 mg/dL Normal 0.5-1.3 [facility] Comment on above: Performed By: #### 2 396079 #### [employer] [address] [place] [address] 37574 Glucose mass conc 129 mg/dL High 70-99 [facility] Comment on above: Performed By: #### 2 240362 #### [employer] [address] [place] [address] Potassium molar conc 3.9 mmol/L Normal 3.5-5.3 [facility] Comment on above: Performed By: #### 2 830009 #### [facility] [employer] [address] [place], [place] [address] Sodium molar conc 138 mmol/L Normal 136-145 [facility] Comment on above: Performed By: #### 2 640746 #### [employer] [address] [place] [address] Urea nitrogen mass conc 19 mg/dL Normal 6-23 [facility] Comment on above: Performed By: #### 2 [id number] #### [facility] [employer] [address] [place], [place] [address] Urea nitrogen/Creatinine mass ratio 15.8 ratio Normal 5.4-30.0 [facility] Comment on above: Performed By: #### 2 424769 #### [facility] [employer] [address] [place], [place] [address] CBC w/ Auto Diffon 9 Erythrocyte distribution width Ratio (RBC) 15.2 % High 11.5-14.5 [facility] Comment on above: Performed By: #### 2 884698 #### [employer] [address] [place], [place] [address] Hematocrit Volume Fraction (Bld) 45.0 % Normal 42.0-52.0 [facility] Comment on above: Performed By: #### 2 146949 #### [employer] [address] [place], [place] [address] Hemoglobin mass conc (Bld) 15.0 g/dL Normal 13.5-18.0 [facility] Comment on above: Performed By: #### 2 944563 #### [employer] [address] [place] [address] MCH Entitic mass (RBC) 29.8 pg Normal 27.0-31.0 [facility] Comment on above: Performed By: #### 2 998024 #### [employer] [address] [place], [place] [address] MCHC mass conc (RBC) 33.4 g/dL Normal 33.0-37.0 [facility] Comment on above: Performed By: #### 2 [id number] #### [employer] [address] [place] [address] MCV Entitic volume (RBC) 89.4 fL Normal 78.0-100.0 [facility] Comment on above: Performed By: #### 2 [id number] #### [employer] [address] [place] [address] Platelet mean volume Entitic volume (Bld) 10.8 fL Normal 7.4-11.0 [facility] Comment on above: Performed By: #### 2 [id number] #### [employer] [address] [place] [address] Platelets #/vol (Bld) 158 E3/mcL Normal 130-400 [facility] Comment on above: Performed By: #### 2 018191 #### [employer] [address] [place] [address] RBC #/vol (Bld) 5.04 E6/mcL Normal 3.90-6.10 [facility] Comment on above: Performed By: #### 2 [id number] #### [employer] [address] [place] [address] WBC #/vol (Bld) 7.2 E3/mcL Normal 3.6-11.0 [facility] Comment on above: Performed By: #### 2 [id number] #### [employer] [address] [place] [address] CT Head or Brain w/o Contras ton 09-14-2018 CT Head or Brain w/o Contrast Exam Date/Time: 09/14/2018 15:21 EDT Reason for Exam: Injury Report STUDY: CT Head or Brain w/o Contrast; 09/14/2018 3:21 pm INDICATION: Injury. COMPARISON: 11/28/2016 ACCESSION NUMBER(S): [id number] ORDERING CLINICIAN: Kirsty Nguyen TECHNIQUE: Volume acquisition [...] by: Radha Olivarez MD Technologist: IZAIAH Normal [facility] CT Spine Cervical w/o Contra ston 09-14-2018 CT Spine Cervical w/o Contrast Exam Date/Time: 09/14/2018 15:22 EDT Reason for Exam: Trauma Report STUDY: CT Spine Cervical w/o Contrast; 09/14/2018 3:22 pm INDICATION: Trauma. COMPARISON: None. ACCESSION NUMBER(S): [id number] ORDERING CLINICIAN: Kirsty Nguyen TECHNIQUE: Axial CT [...] C3-C4. The lower cervical canal is obscured. Prevertebral/Paraspinal Soft Tissues: The prevertebral and paraspinal soft tissues are unremarkable. IMPRESSION: Status post anterior fixation of C4 through C6. The hardware is intact. There is no evidence of acute fracture. FINAL REPORT Dictated: 09/14/2018 3:28 pm Radha Olivarez MD Signed (Electronic Signature): 09/14/2018 3:28 pm Signed by: Radha Olivarez MD Technologist: IZAIAH Normal [facility] Glucose POCon 09-14-2018 Glucose mass conc 132 mg/dL High 70-99 [facility] Comment on above: Performed By: #### 2 [id number] #### COSMO [employer] [address] [place] [address] CutU9jkh 09-14-2018 Hemoglobin A1c/Hemoglobin.total mass fraction (Bld) 6.9 % High 4.0-6.3 [facility] Comment on above: Performed By: #### 2 [id number] #### [employer] [address] [place] [address] Magnesiumon 09-14-2018 Magnesium mass conc 2.0 Int._Unit/L Normal 1.6-2.4 [facility] Comment on above: Performed By: #### 2 [id number] #### COSMO [employer] [facility] [place] [address] PTon 09-14-2018 INR Coag RelTime (PPP) 1.0 {INR} Normal 0.9-1.1 [facility] Comment on above: Result Comment: INR Recommended Therapeutic ranges: Prophylaxis/treatment of DVT and PE..........2.0-3.0 Prevention of systemic embolism.................2.0-3.0 Mechanical prosthetic values........................2.5-3.5 CRITICAL VALUE.........................................> 4.0 NOTE: New methodology started 05/16/2018 Performed By: #### 2 [id number] #### COSMO [employer]reg[employer] [facility] [place] [address] Prothrombin time (PT) Coag time (PPP) 11.8 second(s) Normal 9.7-12.7 [facility] Comment on above: Result Comment: NOTE : New reference range established on 05/16/2018 due to change in methodology. Performed By: #### 2 [id number] #### [employer] [address] [place] [address] PTTon 09-14-2018 aPTT Coag time (Bld) 32 second(s) Normal 28-38 [facility] Comment on above: Result Comment: NOTE :New reference range established 05/16/2018 due to change in methodology. Performed By: #### 2 [id number] #### COSMO [employer] [facility] [place] [address] TSHon 09-14-2018 Thyrotropin Qn 5.25 mcIU/mL Normal 0.30-5.60 [facility] Comment on above: Performed By: #### 2 [id number] #### COSMO [employer] [address] [place] [address] Troponin-Ion 09-14-2018 Troponin I.cardiac mass conc 0.02 ng/mL Normal 0.00-0.03 [facility] Comment on above: Performed By: #### 2 [id number] #### COSMO [employer] [address] [place] [address] UA Completeon 09-14-2018 Color Nom (U) Straw Normal Yellow [facility] Comment on above: Performed By: #### 2 [id number] #### COSMO [employer] [address] [place] [address] Glucose mass conc (U) Negative Normal Negative [facility] Comment on above: Performed By: #### 2 [id number] #### [employer] [address] [place] [address] Ketones Ql (U) Negative Normal Negative [facility] Comment on above: Performed By: #### 2 [id number] #### [employer] [facility] [place] [address] UA Blood Negative Normal Negative [facility] Comment on above: Performed By: #### 2 [id number] #### [employer] [address] [place] [address] UA Clarity Clear Normal Clear [facility] Comment on above: Performed By: #### 2 [id number] #### COSMO [employer] [address] [place] [id number] UA Hyal Cast 3-5 Abnormal 0-2 [facility] Comment on above: Performed By: #### 2 [id number] #### [employer]MO [employer] [address] [place] [id number] UA Leuk Est Negative Normal Negative [facility] Comment on above: Performed By: #### 2 [id number] #### [employer]MO [employer] [address] [place] [address] UA Mucous Trace Abnormal Trace [facility] Comment on above: Performed By: #### 2 [id number] #### [employer]MO [employer] [address] [place] [address] UA Nitrite Negative Normal Negative [facility] Comment on above: Performed By: #### 2 [id number] #### COSMO [employer] [address] [place] [id number] UA pH 5.0 Normal 4.6-8.0 [facility] Comment on above: Performed By: #### 2 [id number] #### COSMO [employer] [address] [place] [address] UA Protein Negative Normal Negative [facility] Comment on above: Performed By: #### 2 [id number] #### COSMO [employer] [address] [place] [id number] UA Spec Grav 1.009 Normal 1.003-1.03 0 [facility] Comment on above: Performed By: #### 2 [id number] #### COSMO [employer] [address] [place] [address] UA Urobilinogen Negative Normal [facility] [...] within 24 hours. Performed By: #### 2 [id number] #### COSMO [employer] [facility] [place] [id number] Urobilinogen Qn (U) Negative Normal Negative [facility] Comment on above: Performed By: #### 2 [id number] #### COSMO [employer] [facility] [place] [address] XR Chest AP Portableon 09-14 XR Chest AP Portable Exam Date/Time: 09/14/2018 15:43 EDT Reason for Exam: Chest pain Report STUDY: XR Chest AP Portable; 09/14/2018 3:43 pm INDICATION: Chest pain. COMPARISON: 12/25/2016 ACCESSION NUMBER(S): [id number] ORDERING CLINICIAN: Kirsty Nguyen FINDINGS: CARDIOMEDIASTINAL SILHOUETTE: [...] pm Signed by: Iva Vargas MD Technologist: [facility] XR Humerus Lefton 09-14-2018 XR Humerus Left Exam Date/Time: 09/14/2018 15:43 EDT Reason for Exam: Pain, Traumatic Report STUDY: XR Humerus Left; XR Shoulder Complete Left;; 09/14/2018 3:43 pm INDICATION: Pain, Traumatic. COMPARISON: None. ACCESSION NUMBER(S): [id number]; [id number] ORDERING CLINICIAN: Kirsty Nguyen FINDINGS: Five views [...] pm Signed by: Iva Vargas MD Technologist: [facility] XR Knee Complete Righton XR Knee Complete Right Exam Date/Time: 09/14/2018 15:43 EDT Reason for Exam: Pain, Traumatic Report STUDY: XR Knee Complete Right;; 09/14/2018 3:43 pm INDICATION: Pain, Traumatic. COMPARISON: None. ACCESSION NUMBER(S): [id number] ORDERING CLINICIAN: Kirsty Nguyen FINDINGS: Four views right knee: There is no fracture, dislocation or joint effusion. There is swelling anterior to the patella and infrapatellar tendon. IMPRESSION: No acute bony abnormality right knee, soft tissue swelling. FINAL REPORT Dictated: 09/14/2018 4:19 pm Iva Vargas MD Signed (Electronic Signature): 09/14/2018 4:19 pm Signed by: Iva Vargas MD Technologist: [facility] XR Shoulder Complete Lefton 09-14-2018 XR Shoulder Complete Left Exam Date/Time: 09/14/2018 15:43 EDT Reason for Exam: Pain, Traumatic Report STUDY: XR Humerus Left; XR Shoulder Complete Left;; 09/14/2018 3:43 pm INDICATION: Pain, Traumatic. COMPARISON: None. ACCESSION NUMBER(S): [id number]; [id number] ORDERING CLINICIAN: Kirsty Nguyen FINDINGS: Five views [...] pm Signed by: Iva Vargas MD Technologist: [facility] eGFRon 09-14-2018 GFR/1.73 sq M predicted among non-blacks MDRD vol rate/area (S/P/Bld) mL/min/{1.73_m2} [facility] Comment on above: Order Comment: Order added by Discern Expert. Performed By: #### 1 [id number] #### COSMO [employer] [address] [place] [address] Vital Signs Date Time Vital Sign Value Performing Clinician Facility 12-02-2024 14:08-0400 Body temperature 98.8 [degF] Dr. Marycarmen Rodriguez DO Work Phone: [facility] 12-02-2024 14:08-0400 Diastolic blood pressure 72 mm[Hg] Dr. Marycarmen Rodriguez DO Work Phone: [facility] 12-02-2024 14:08-0400 Heart rate 78 /min Dr. Marycarmen Rodriguez DO Work Phone: [facility] 12-02-2024 14:08-0400 Respiratory rate 18 /min Dr. Marycarmen Rodriguez DO Work Phone: [facility] 12-02-2024 14:08-0400 SaO2% (BldA) [Mass fraction] 98 % Dr. Marycarmen Rodriguez DO Work Phone: [facility] 12-02-2024 14:08-0400 Systolic blood pressure 150 mm[Hg] Dr. Marycarmen Rodriguez DO Work Phone: [facility] 12-02-2024 14:01-0400 Inhaled oxygen flow rate 3 L/min Dr. Marycarmen Rodriguez DO Work Phone: [facility] 12-02-2024 08:32-0400 Body height 175.[address] Marycarmen Rodriguez DO Work Phone: [facility] 12-02-2024 08:32-0400 Body weight 109.[address] Marycarmen Rodriguez DO Work Phone: [facility] 12-02-2024 05:30-0400 Body mass index (BMI) [Ratio] 35.6 kg/m2 Dr. Marycarmen Rodriguez DO Work Phone: [facility] 11-30-2024 15:45-0400 Diastolic blood pressure 70 mm[Hg] Dr. Marycarmen Rodriguez DO Work Phone: [facility] 11-30-2024 15:45-0400 Systolic blood pressure 146 mm[Hg] Dr. Marycarmen Rodriguez DO Work Phone: [facility] 11-28-2024 09:15-0400 SaO2% (BldA) [Mass fraction] 94 % Dr. Marycarmen Rodriguez DO Work Phone: [facility] 11-28-2024 09:10-0400 Body temperature 97.5 [degF] Dr. Marycarmen Rodriguez DO Work Phone: [facility] 11-28-2024 09:10-0400 Diastolic blood pressure 64 mm[Hg] Dr. Marycarmen Rodriguez DO Work Phone: [facility] 11-28-2024 09:10-0400 Heart rate 86 /min Dr. Marycarmen Rodriguez DO Work Phone: [facility] 11-28-2024 09:10-0400 Respiratory rate 18 /min Dr. Marycarmen Rodriguez DO Work Phone: [facility] 11-28-2024 09:10-0400 Systolic blood pressure 129 mm[Hg] Dr. Marycarmen Rodriguez DO Work Phone: [facility] 11-28-2024 05:13-0400 Body mass index (BMI) [Ratio] 35.2 kg/m2 Dr. Marycarmen Rodriguez DO Work Phone: [facility] 11-28-2024 05:13-0400 Body weight 108.[address] Marycarmen Rodriguez DO Work Phone: [facility] 11-27-2024 15:54-0400 Body height 175.[address] Marycarmen Rodriguez DO Work Phone: [facility] 11-27-2024 15:54-0400 Body mass index (BMI) [Ratio] 35.4 kg/m2 Dr. Marycarmen Rodriguez DO Work Phone: [facility] 11-27-2024 15:54-0400 Body weight 108.[address] Marycarmen Rodriguez DO Work Phone: [facility] 11-27-2024 13:45-0400 Diastolic blood pressure 68 mm[Hg] Dr. Marycarmen Rodriguez DO Work Phone: [facility] 11-27-2024 13:45-0400 Heart rate 75 /min Dr. Marycarmen Rodriguez DO Work Phone: [facility] 11-27-2024 13:45-0400 Respiratory rate 21 /min Dr. Marycarmen Rodriguez DO Work Phone: [facility] 11-27-2024 13:45-0400 SaO2% (BldA) [Mass fraction] 95 % Dr. Marycarmen Rodriguez DO Work Phone: [facility] 11-27-2024 13:45-0400 Systolic blood pressure 115 mm[Hg] Dr. Marycarmen Rodriguez DO Work Phone: [facility] 11-26-2024 21:38-0400 Body temperature 98.1 [degF] Dr. Marycarmen Rodriguez DO Work Phone: [facility] 11-26-2024 21:38-0400 Diastolic blood pressure 68 mm[Hg] Dr. Marycarmen Rodriguez DO Work Phone: [facility] 11-26-2024 21:38-0400 Heart rate 68 /min Dr. Marycarmen Rodriguez DO Work Phone: [facility] 11-26-2024 21:38-0400 Respiratory rate 18 /min Dr. Marycarmen Rordiguez DO Work Phone: [facility] 11-26-2024 21:38-0400 SaO2% (BldA) [Mass fraction] 98 % Dr. Marycarmen Rodriguez DO Work Phone: [facility] 11-26-2024 21:38-0400 Systolic blood pressure 132 mm[Hg] Dr. Marycarmen Rodriguez DO Work Phone: [facility] 11-26-2024 18:03-0400 Inhaled oxygen flow rate 2 L/min Dr. Marycarmen Rodriguez DO Work Phone: [facility] 11-26-2024 17:37-0400 Body height 175.[address] Marycarmen Rodriguez DO Work Phone: [facility] 11-26-2024 17:37-0400 Body mass index (BMI) [Ratio] 37.3 kg/m2 Dr. Marycarmen Rodriguez DO Work Phone: [facility] 11-26-2024 17:37-0400 Body weight 114.[address] Marycarmen Rodriguez DO Work Phone: [facility] 11-22-2024 10:41-0400 Body mass index (BMI) [Ratio] 35.9 kg/m2 Dr. Marycarmen Rodriguez DO Work Phone: [facility] 11-22-2024 10:41-0400 Body weight 110.[address] Marycarmen Rodriguez DO Work Phone: [facility] 11-22-2024 10:41-0400 Diastolic blood pressure 62 mm[Hg] Dr. Marycarmen Rodriguez DO Work Phone: [facility] 11-22-2024 10:41-0400 Heart rate 66 /min Dr. Marycarmen Rodriguez DO Work Phone: [facility] 11-22-2024 10:41-0400 Respiratory rate 20 /min Dr. Marycarmen Rodriguez DO Work Phone: [facility] 11-22-2024 10:41-0400 Systolic blood pressure 107 mm[Hg] Dr. Marycarmen Rodriguez DO Work Phone: [facility] 10-31-2024 07:44-0400 Body mass index (BMI) [Ratio] 35.4 kg/m2 Dr. Marycarmen Rodriguez DO Work Phone: [facility] 10-31-2024 07:44-0400 Body temperature 97.1 [degF] Dr. Marycarmen Rodriguez DO Work Phone: [facility] 10-31-2024 07:44-0400 Body weight 108.[address] Marycarmen Rodriguez DO Work Phone: [facility] 10-31-2024 07:44-0400 Diastolic blood pressure 75 mm[Hg] Dr. Marycarmen Rodriguez DO Work Phone: [facility] 10-31-2024 07:44-0400 Heart rate 64 /min Dr. Marycarmen Rodriguez DO Work Phone: [facility] 10-31-2024 07:44-0400 Respiratory rate 20 /min Dr. Marycarmen Rodriguez DO Work Phone: [facility] 10-31-2024 07:44-0400 SaO2% (BldA) [Mass fraction] 97 % Dr. Marycarmen Rodriguez DO Work Phone: [facility] 10-31-2024 07:44-0400 Systolic blood pressure 135 mm[Hg] Dr. Marycarmen Rodriguez DO Work Phone: [facility] 10-25-2024 08:10-0400 Body height 175.[address] Marycarmen Rodriguez DO Work Phone: [facility] 10-25-2024 08:10-0400 Body mass index (BMI) [Ratio] 35.9 kg/m2 Dr. Marycarmen Rodriguez DO Work Phone: [facility] 10-25-2024 08:10-0400 Body weight 110.[address] Marycarmen Rodriguez DO Work Phone: [facility] 10-25-2024 08:10-0400 Diastolic blood pressure 85 mm[Hg] Dr. Marycarmen Rodriguez DO Work Phone: [facility] 10-25-2024 08:10-0400 Heart rate 85 /min Dr. Marycarmen Rodriguez DO Work Phone: [facility] 10-25-2024 08:10-0400 Respiratory rate 18 /min Dr. Marycarmen Rodriguez DO Work Phone: [facility] 10-25-2024 08:10-0400 Systolic blood pressure 121 mm[Hg] Dr. Marycarmen Rodriguez DO Work Phone: [facility] 09-20-2024 09:15-0400 Body height 175.[address] Marycarmen Rodriguez DO Work Phone: [facility] 09-20-2024 09:15-0400 Body mass index (BMI) [Ratio] 35.6 kg/m2 Dr. Marycarmen Rodriguez DO Work Phone: [facility] 09-20-2024 09:15-0400 Body temperature 96.8 [degF] Dr. Marycarmen Rodriguez DO Work Phone: [facility] 09-20-2024 09:15-0400 Body weight 109.[address] Marycarmen Rodriguez DO Work Phone: [facility] 09-20-2024 09:15-0400 Diastolic blood pressure 77 mm[Hg] Dr. Marycarmen Rodriguez DO Work Phone: [facility] 09-20-2024 09:15-0400 Heart rate 66 /min Dr. Marycarmen Rodriguez DO Work Phone: [facility] 09-20-2024 09:15-0400 Respiratory rate 18 /min Dr. Marycarmen Rodriguez DO Work Phone: [facility] 09-20-2024 09:15-0400 SaO2% (BldA) [Mass fraction] 97 % Dr. Marycarmen Rodriguez DO Work Phone: [facility] 09-20-2024 09:15-0400 Systolic blood pressure 121 mm[Hg] Dr. Marycarmen Rodriguez DO Work Phone: [facility] 07-18-2024 06:00-0400 Body height 175.[address] Marycarmen Rodriguez DO Work Phone: [facility] 07-18-2024 06:00-0400 Body weight 104.[address] Marycarmen Rodriguez DO Work Phone: [facility] 07-18-2024 06:00-0400 Heart rate 69 /min Dr. Marycarmen Rodriguez DO Work Phone: [facility] 07-18-2024 06:00-0400 SaO2% (BldA) [Mass fraction] 97 % Dr. Marycarmen Rodriguez DO Work Phone: [facility] 07-03-2024 08:35-0500 Body mass index (BMI) [Ratio] 36.6 kg/m2 Dr. Marycarmen Rodriguez DO Work Phone: [facility] 07-03-2024 08:35-0500 Body temperature 97.5 [degF] Dr. Marycarmen Rodriguez DO Work Phone: [facility] 07-03-2024 08:35-0500 Body weight 109.[address] Marycarmen Rodriguez DO Work Phone: [facility] 07-03-2024 08:35-0500 Diastolic blood pressure 77 mm[Hg] Dr. Marycarmen Rodriguez DO Work Phone: [facility] 07-03-2024 08:35-0500 Heart rate 72 /min Dr. Marycarmen Rodriguez DO Work Phone: [facility] 07-03-2024 08:35-0500 Respiratory rate 20 /min Dr. Marycarmen Rodriguez DO Work Phone: [facility] 07-03-2024 08:35-0500 SaO2% (BldA) [Mass fraction] 96 % Dr. Marycarmen Rodriguez DO Work Phone: [facility] 07-03-2024 08:35-0500 Systolic blood pressure 116 mm[Hg] Dr. Marycarmen Rodriguez DO Work Phone: [facility] 04-17-2024 15:55-0500 Body height [address] Marycarmen Rodriguez DO Work Phone: [facility] 04-17-2024 15:55-0500 Body mass index (BMI) [Ratio] 36.9 kg/m2 Dr. Marycarmen Rodriguez DO Work Phone: [facility] 04-17-2024 15:55-0500 Body weight 110.[address] Marycarmen Rodriguez DO Work Phone: [facility] 04-17-2024 15:55-0500 Diastolic blood pressure 53 mm[Hg] Dr. Marycarmen Rodriguez DO Work Phone: [facility] 04-17-2024 15:55-0500 Heart rate 70 /min Dr. Marycarmen Rodriguez DO Work Phone: [facility] 04-17-2024 15:55-0500 Respiratory rate 18 /min Dr. Marycarmen Rodriguez DO Work Phone: [facility] 04-17-2024 15:55-0500 SaO2% (BldA) [Mass fraction] 94 % Dr. Marycarmen Rodriguez DO Work Phone: [facility] 04-17-2024 15:55-0500 Systolic blood pressure 91 mm[Hg] Dr. Marycarmen Rodriguez DO Work Phone: [facility] 03-27-2024 10:17-0500 Diastolic blood pressure 79 mm[Hg] Dr. Marycarmen Rodriguez DO Work Phone: [facility] 03-27-2024 10:17-0500 Heart rate 67 /min Dr. Marycarmen Rodriguez DO Work Phone: [facility] 03-27-2024 10:17-0500 Respiratory rate 18 /min Dr. Marycarmen Rodriguez DO Work Phone: [facility] 03-27-2024 10:17-0500 Systolic blood pressure 134 mm[Hg] Dr. Marycarmen Rodriguez DO Work Phone: [facility] 03-20-2024 08:28-0500 Body mass index (BMI) [Ratio] 37.5 kg/m2 Dr. Marycarmen Rodriguez DO Work Phone: [facility] 03-20-2024 08:28-0500 Body weight 112.[address] Marycarmen Rodriguez DO Work Phone: [facility] 03-20-2024 08:28-0500 Diastolic blood pressure 89 mm[Hg] Dr. Marycarmen Rodriguez DO Work Phone: [facility] 03-20-2024 08:28-0500 Heart rate 61 /min Dr. Marycarmen Rodriguez DO Work Phone: [facility] 03-20-2024 08:28-0500 Respiratory rate 18 /min Dr. Marycarmen Rodriguez DO Work Phone: [facility] 03-20-2024 08:28-0500 Systolic blood pressure 141 mm[Hg] Dr. Marycarmen Rodriguez DO Work Phone: [facility] 12-21-2022 07:51-0400 Body height 172.[address] Marycarmen Rodriguez Work Phone: [facility] 12-21-2022 07:51-0400 Body weight 85.[address] Marycarmen Rodriguez Work Phone: [facility] 12-18-2022 08:27-0400 Body mass index (BMI) [Ratio] 28.7 kg/m2 Dr. Marycarmen Rodriguez Work Phone: [facility] 12-15-2022 13:03-0400 Body mass index (BMI) [Ratio] 28.7 kg/m2 Dr. Marycarmen Rodriguez Work Phone: [facility] 12-15-2022 13:03-0400 Body weight 85.[address] Marycarmen Rodriguez Work Phone: [facility] 12-15-2022 13:03-0400 Diastolic blood pressure 92 mm[Hg] Dr. Marycarmen Rodriguez Work Phone: [facility] 12-15-2022 13:03-0400 Heart rate 72 /min Dr. Marycarmen Rodriguez Work Phone: [facility] 12-15-2022 13:03-0400 Respiratory rate 16 /min Dr. Marycarmen Rodriguez Work Phone: [facility] 12-15-2022 13:03-0400 Systolic blood pressure 156 mm[Hg] Dr. Marycarmen Rodriguez Work Phone: [facility] 10-13-2022 10:59-0400 Body height 172.72 cm [facility] 10-13-2022 10:59-0400 Body mass index (BMI) [Ratio] 25.4 kg/m2 [facility] 10-13-2022 10:59-0400 Body weight 75.74 kg [facility] 10-13-2022 10:59-0400 Diastolic blood pressure 75 mm[Hg] [facility] 10-13-2022 10:59-0400 Heart rate 65 /min [facility] 10-13-2022 10:59-0400 Respiratory rate 18 /min [facility] 10-13-2022 10:59-0400 SaO2% (BldA) [Mass fraction] 94 % [facility] 10-13-2022 10:59-0400 Systolic blood pressure 143 mm[Hg] [facility] 09-21-2022 15:30-0400 Body mass index (BMI) [Ratio] 34.7 kg/m2 [facility] 09-21-2022 15:27-0400 Body temperature 98 [degF] [facility] 09-21-2022 15:27-0400 Diastolic blood pressure 84 mm[Hg] [facility] 09-21-2022 15:27-0400 Heart rate 79 /min [facility] 09-21-2022 15:27-0400 Respiratory rate 17 /min Marycarmen Jennifer [facility] 09-21-2022 15:27-0400 SaO2% (BldA) [Mass fraction] 96 % Marycarmen [facility] 09-21-2022 15:27-0400 Systolic blood pressure 143 mm[Hg] Marycarmen Jennifer [facility] 09-21-2022 06:25-0400 Body weight 103.6 kg Marycarmen Jennifer [facility] 09-19-2022 01:30-0400 Inhaled oxygen concentration 21 % Marycarmen Jennifer [facility] 09-01-2022 09:59-0400 Diastolic blood pressure 68 mm[Hg] Marycarmen Jennifer [facility] 09-01-2022 09:59-0400 Heart rate 49 /min Marycarmen Jennifer [facility] 09-01-2022 09:59-0400 Systolic blood pressure 127 mm[Hg] Marycarmen [facility] 09-01-2022 09:57-0400 Body temperature 97.9 [degF] Marycarmen [facility] 09-01-2022 09:57-0400 Respiratory rate 18 /min Marycarmen Jennifer [facility] 09-01-2022 09:57-0400 SaO2% (BldA) [Mass fraction] 93 % Marycarmen [facility] 09-01-2022 04:08-0400 Body mass index (BMI) [Ratio] 35.2 kg/m2 Marycarmen Jennifer [facility] 09-01-2022 04:08-0400 Body weight 108.2 kg Marycarmen Jennifer [facility] 08-31-2022 11:42-0400 Body height 175.26 cm Marycarmen Jennifer [facility] 08-19-2022 10:01-0400 Body height 175.26 cm Marycarmen Jennifre [facility] 08-19-2022 10:01-0400 Body mass index (BMI) [Ratio] 35.4 kg/m2 Marycarmen Jennifer [facility] 08-19-2022 10:01-0400 Body weight 109.03 kg Marycarmen Rodriguez BRYNN [facility] 08-19-2022 10:01-0400 Diastolic blood pressure 79 mm[Hg] Marycarmen Jennifer [facility] 08-19-2022 10:01-0400 Heart rate 62 /min Marycarmen Jenniferdiogenes SWAIN [facility] 08-19-2022 10:01-0400 Respiratory rate 18 /min Marycarmen SWAIN [facility] 08-19-2022 10:01-0400 Systolic blood pressure 144 mm[Hg] Marycarmen Rodriguez [facility] 04-16-2022 12:43-0500 Body height 175.[address] Marycarmen Rodriguez Work Phone: [facility] 04-16-2022 12:43-0500 Body mass index (BMI) [Ratio] 35.2 kg/m2 Dr. Marycarmen Rodriguez Work Phone: [facility] 04-16-2022 12:43-0500 Body temperature 97 [degF] Dr. Marycarmen Rodriguez Work Phone: [facility] 04-16-2022 12:43-0500 Body weight 108.[address] Marycarmen Rodriguez Work Phone: [facility] 04-16-2022 12:43-0500 Diastolic blood pressure 78 mm[Hg] Dr. Marycarmen Rodriguez Work Phone: [facility] 04-16-2022 12:43-0500 Heart rate 66 /min Dr. Marycarmen Rodriguez Work Phone: [facility] 04-16-2022 12:43-0500 Respiratory rate 18 /min Dr. Marycarmen Rodriguez Work Phone: [facility] 04-16-2022 12:43-0500 SaO2% (BldA) [Mass fraction] 94 % Dr. Marycarmen Rodriguez Work Phone: [facility] 04-16-2022 12:43-0500 Systolic blood pressure 125 mm[Hg] Dr. Marycarmen Rodriguez Work Phone: [facility] 04-14-2022 10:27-0500 Body mass index (BMI) [Ratio] 35.2 kg/m2 Dr. Marycarmen Rodriguez Work Phone: [facility] 04-14-2022 10:27-0500 Body weight 108.[address] Marycarmen Rodriguez Work Phone: [facility] 04-14-2022 10:27-0500 Diastolic blood pressure 68 mm[Hg] Dr. Marycarmen Rodriguez Work Phone: [facility] 04-14-2022 10:27-0500 Heart rate 64 /min Dr. Marycarmen Rodriguez Work Phone: [facility] 04-14-2022 10:27-0500 Respiratory rate 18 /min Dr. Marycarmen Rodriguez Work Phone: [facility] 04-14-2022 10:27-0500 Systolic blood pressure 130 mm[Hg] Dr. Marycarmen Rodriguez Work Phone: [facility] 03-27-2022 13:25-0500 Body temperature 97.9 [degF] Dr. Marycarmen Rodriguez Work Phone: [facility] 03-27-2022 13:25-0500 Diastolic blood pressure 86 mm[Hg] Dr. Marycarmen Rodriguez Work Phone: [facility] 03-27-2022 13:25-0500 Heart rate 86 /min Dr. Marycarmen Rodriguez Work Phone: [facility] 03-27-2022 13:25-0500 Respiratory rate 14 /min Dr. Marycarmen Rodriguez Work Phone: [facility] 03-27-2022 13:25-0500 SaO2% (BldA) [Mass fraction] 96 % Dr. Marycarmen Rodriguez Work Phone: [facility] 03-27-2022 13:25-0500 Systolic blood pressure 134 mm[Hg] Dr. Marycarmen Rodriguez Work Phone: [facility] 01-07-2022 11:07-0400 Body mass index (BMI) [Ratio] 34.9 kg/m2 Dr. Marycarmen Rodriugez Work Phone: [facility] Work Phone: 01-07-2022 11:07-0400 Body temperature 97.4 [degF] Dr. Marycarmen Rodriguez Work Phone: [facility] Work Phone: 01-07-2022 11:07-0400 Body weight 107.[address] Marycarmen Rodriguez Work Phone: [facility] Work Phone: 01-07-2022 11:07-0400 Diastolic blood pressure 87 mm[Hg] Dr. Marycarmen Rodriguez Work Phone: [facility] Work Phone: 01-07-2022 11:07-0400 Heart rate 60 /min Dr. Marycarmen Rodriguez Work Phone: [facility] Work Phone: 01-07-2022 11:07-0400 Respiratory rate 16 /min Dr. Marycarmen Rodriguez Work Phone: [facility] Work Phone: 01-07-2022 11:07-0400 SaO2% (BldA) [Mass fraction] 96 % Dr. Marycarmen Rodriguez Work Phone: [facility] Work Phone: 01-07-2022 11:07-0400 Systolic blood pressure 155 mm[Hg] Dr. Marycarmen Rodriguez Work Phone: [facility] Work Phone: 11-21-2021 10:24-0400 Body height 175.[address] Marycarmen Rodriguez Work Phone: [facility] Work Phone: 11-21-2021 10:24-0400 Body mass index (BMI) [Ratio] 34.9 kg/m2 Dr. Marycarmen Rodriguez Work Phone: [facility] Work Phone: 11-21-2021 10:24-0400 Body weight 107.[address] Marycarmen Rodriguez Work Phone: [facility] Work Phone: 11-21-2021 10:24-0400 Diastolic blood pressure 77 mm[Hg] Dr. Marycarmen Rodriguez Work Phone: [facility] Work Phone: 11-21-2021 10:24-0400 Heart rate 61 /min Dr. Marycarmen Rodriguez Work Phone: [facility] Work Phone: 11-21-2021 10:24-0400 Respiratory rate 18 /min Dr. Marycarmen Rodriguez Work Phone: [facility] Work Phone: 11-21-2021 10:24-0400 SaO2% (BldA) [Mass fraction] 97 % Dr. Marycarmen Rodriguez Work Phone: [facility] Work Phone: 11-21-2021 10:24-0400 Systolic blood pressure 138 mm[Hg] Dr. Marycarmen Rodriguez Work Phone: [facility] Work Phone: 11-16-2021 16:49-0400 Diastolic blood pressure 87 mm[Hg] Dr. Marycarmen Rodriguez Work Phone: [facility] Work Phone: 11-16-2021 16:49-0400 Heart rate 53 /min Dr. Marycarmen Rodriguez Work Phone: [facility] Work Phone: 11-16-2021 16:49-0400 Respiratory rate 16 /min Dr. Marycarmen Rodriguez Work Phone: [facility] Work Phone: 11-16-2021 16:49-0400 SaO2% (BldA) [Mass fraction] 93 % Dr. Marycarmen Rodriguez Work Phone: [facility] Work Phone: 11-16-2021 16:49-0400 Systolic blood pressure 117 mm[Hg] Dr. Marycarmen Rodriguez Work Phone: [facility] Work Phone: 11-16-2021 12:55-0400 Body mass index (BMI) [Ratio] 33.2 kg/m2 Dr. Marycarmen Rodriguez Work Phone: [facility] Work Phone: 11-16-2021 12:55-0400 Body temperature 97.6 [degF] Dr. Marycarmen Rodriguez Work Phone: [facility] Work Phone: 11-16-2021 12:55-0400 Body weight 102.[address] Marycarmen Rodriguez Work Phone: [facility] Work Phone: 09-16-2021 10:37-0400 Body height 175.[address] Marycarmen Rodriguez Work Phone: [facility] Work Phone: 09-16-2021 10:37-0400 Body mass index (BMI) [Ratio] 35.7 kg/m2 Dr. Marycarmen Rodriguez Work Phone: [facility] Work Phone: 09-16-2021 10:37-0400 Body weight 109.[address] Marycarmen Rodriguez Work Phone: [facility] Work Phone: 09-16-2021 10:37-0400 Diastolic blood pressure 69 mm[Hg] Dr. Marycarmen Rodriguez Work Phone: [facility] Work Phone: 09-16-2021 10:37-0400 Heart rate 50 /min Dr. Marycarmen Rodriguez Work Phone: [facility] Work Phone: 09-16-2021 10:37-0400 Respiratory rate 18 /min Dr. Marycarmen Rodriguez Work Phone: [facility] Work Phone: 09-16-2021 10:37-0400 Systolic blood pressure 122 mm[Hg] Dr. Marycarmen Rodriguez Work Phone: [facility] Work Phone: 08-01-2021 10:02-0400 Body mass index (BMI) [Ratio] 35.7 kg/m2 Dr. Marycarmen Rodriguez Work Phone: [facility] Work Phone: 08-01-2021 10:02-0400 Body weight 109.[address] Marycarmen Rodriguez Work Phone: [facility] Work Phone: 08-01-2021 10:02-0400 Diastolic blood pressure 81 mm[Hg] Dr. Marycarmen Rodriguez Work Phone: [facility] Work Phone: 08-01-2021 10:02-0400 Heart rate 59 /min Dr. Marycarmen Rodriguez Work Phone: [facility] Work Phone: 08-01-2021 10:02-0400 Respiratory rate 18 /min Dr. Marycarmen Rodriguez Work Phone: [facility] Work Phone: 08-01-2021 10:02-0400 SaO2% (BldA) [Mass fraction] 97 % Dr. Marycarmen Rodriguez Work Phone: [facility] Work Phone: 08-01-2021 10:02-0400 Systolic blood pressure 133 mm[Hg] Dr. Marycarmen Rodriguez Work Phone: [facility] Work Phone: 08-01-2021 10:02-0400 Body height 175.[address] Marycarmen Rodriguez Work Phone: [facility] Work Phone: 08-01-2021 10:02-0400 Body mass index (BMI) [Ratio] 35.7 kg/m2 Dr. Marycarmen Rodriguez Work Phone: [facility] Work Phone: 08-01-2021 10:02-0400 Body weight 109.[address] Marycarmen Rodriguez Work Phone: [facility] Work Phone: 08-01-2021 10:02-0400 Diastolic blood pressure 81 mm[Hg] Dr. Marycarmen Rodriguez Work Phone: [facility] Work Phone: 08-01-2021 10:02-0400 Heart rate 59 /min Dr. Marycarmen Rodriguez Work Phone: [facility] Work Phone: 08-01-2021 10:02-0400 Respiratory rate 18 /min Dr. Marycarmen Rodriguez Work Phone: [facility] Work Phone: 08-01-2021 10:02-0400 SaO2% (BldA) [Mass fraction] 97 % Dr. Marycarmen Rodriguez Work Phone: [facility] Work Phone: 08-01-2021 10:02-0400 Systolic blood pressure 133 mm[Hg] Dr. Marycarmen Rodriguez Work Phone: [facility] Work Phone: 06-10-2021 18:38-0500 Diastolic blood pressure 75 mm[Hg] Dr. Marycarmen Rodriguez Work Phone: [facility] Work Phone: 06-10-2021 18:38-0500 Heart rate 57 /min Dr. Marycarmen Rodriguez Work Phone: [facility] Work Phone: 06-10-2021 18:38-0500 Respiratory rate 14 /min Dr. Marycarmen Rodriguez Work Phone: [facility] Work Phone: 06-10-2021 18:38-0500 SaO2% (BldA) [Mass fraction] 96 % Dr. Marycarmen Rodriguez Work Phone: [facility] Work Phone: 06-10-2021 18:38-0500 Systolic blood pressure 121 mm[Hg] Dr. Marycarmen Rodriguez Work Phone: [facility] Work Phone: 06-10-2021 13:36-0500 Body mass index (BMI) [Ratio] 34 kg/m2 Dr. Marycarmen Rodriguez Work Phone: [facility] Work Phone: 06-10-2021 13:36-0500 Body temperature 97 [degF] Dr. Marycarmen Rodriguez Work Phone: [facility] Work Phone: 06-10-2021 13:36-0500 Body weight 104.[address] Marycarmen Rodriguez Work Phone: [facility] Work Phone: 05-19-2021 16:55-0500 Respiratory rate 16 /min Dr. Marycarmen Rodriguez Work Phone: [facility] Work Phone: 05-19-2021 14:43-0500 Body temperature 96.5 [degF] Dr. Marycarmen Rodriguez Work Phone: [facility] Work Phone: 05-19-2021 14:43-0500 Diastolic blood pressure 94 mm[Hg] Dr. Marycarmen Rodriguez Work Phone: [facility] Work Phone: 05-19-2021 14:43-0500 Heart rate 63 /min Dr. Marycarmen Rodriguez Work Phone: [facility] Work Phone: 05-19-2021 14:43-0500 SaO2% (BldA) [Mass fraction] 99 % Dr. Marycarmen Rodriguez Work Phone: [facility] Work Phone: 05-19-2021 14:43-0500 Systolic blood pressure 172 mm[Hg] Dr. Marycarmen Rodriguez Work Phone: [facility] Work Phone: 05-19-2021 14:42-0500 Body mass index (BMI) [Ratio] 34 kg/m2 Dr. Marycarmen Rodriguez Work Phone: [facility] Work Phone: 05-19-2021 14:42-0500 Body weight 104.[address] Marycarmen Rodriguez Work Phone: [facility] Work Phone: 12-26-2020 10:29-0400 Diastolic blood pressure 76 mm[Hg] Eladio Ingram MD Work Phone: [facility] 12-26-2020 10:29-0400 Systolic blood pressure 141 mm[Hg] Eladio Ingram MD Work Phone: [facility] 12-26-2020 10:24-0400 Body height 175.3 cm Eladio Ingram MD Work Phone: [facility] 12-26-2020 10:24-0400 Body mass index (BMI) [Ratio] 33.67 kg/m2 Eladio Ingram MD Work Phone: [facility] 12-26-2020 10:24-0400 Body weight 103.42 kg Eladio Ingram MD Work Phone: [facility] 12-26-2020 10:24-0400 Heart rate 59 /min Eladio Ingram MD Work Phone: [facility] 12-26-2020 10:24-0400 SaO2% (BldA) [Mass fraction] 95 % Eladio Ingram MD Work Phone: [facility] 10-09-2020 10:53-0400 Diastolic blood pressure 72 mm[Hg] Fernanda Acuña RESOLUTION MANAGER Work Phone: [facility] 10-09-2020 10:53-0400 Systolic blood pressure 134 mm[Hg] Fernanda Acuña RESOLUTION MANAGER Work Phone: [facility] 10-09-2020 09:59-0400 Body mass index (BMI) [Ratio] 34.6 kg/m2 Fernanda Acuña RESOLUTION MANAGER Work Phone: [facility] 10-09-2020 09:59-0400 Body weight 106.28 kg Fernanda Acuña RESOLUTION MANAGER Work Phone: [facility] 10-09-2020 09:59-0400 Heart rate 58 /min Fernanda Acuña RESOLUTION MANAGER Work Phone: [facility] 10-09-2020 09:59-0400 Respiratory rate 16 /min Fernanda Acuña RESOLUTION MANAGER Work Phone: [facility] 10-09-2020 09:59-0400 SaO2% (BldA) [Mass fraction] 94 % Fernanda Acuña RESOLUTION MANAGER Work Phone: [facility] 12-17-2016 11:21-0400 BMI (Body Mass Index) 32.99 kg/m2 Eladio Ingram [facility] Work Phone: 12-17-2016 11:21-0400 BP Diastolic 82 mm[Hg] Eladio Ingram [facility] Work Phone: 12-17-2016 11:21-0400 BP Systolic 150 mm[Hg] Eladio Ingram [facility] Work Phone: 12-17-2016 [id number] Height 175.3 cm Eladio Ingram [facility] Work Phone: 12-17-2016 11:21-0400 Pulse (Heart Rate) 70 /min Eladio Ingram [facility] Work Phone: 12-17-2016 11:21-0400 Pulse Oximetry 97 % Eladio Ingram [facility] Work Phone: 12-17-2016 11:21-0400 Weight 101.33 kg Eladio Ingram [facility] Work Phone: Encounters Encounter Date Encounter Type Care Provider Facility Start: 12-02-2024 Dr. Nickie Danielson DO -[facility] Work Phone: Start: 12-01-2024 Dr. Marcin Araujo MD -[facility] Start: 11-30-2024 End: 12-02-2024 Evaluation and management of inpatient Dr. Marycarmen Rodriguez DO Work Phone: -Intensive Care Unit Start: 11-30-2024 ambulatory Jose Hay Facility:[facility] Start: 11-30-2024 End: 12-02-2024 Dr. Abraham Ridley DO -Intensive Care Unit Work Phone: Start: 11-27-2024 Dr. Jose Hay MD -[facility] Start: 11-27-[address] Marycarmen vera DO Work Phone: -[facility] Start: 11-27-2024 End: 11-28-2024 ambulatory Marycarmen Rodriguez Facility:[facility] Start: 11-27-2024 End: 11-28-[address] Marycarmen Rodriguez DO Work Phone: -Progressive Care Unit Start: 11-27-2024 End: 11-28-2024 Dr. Jose Hay MD -Progressive Care Un it Work Phone: Start: 11-26-2024 End: 11-26-2024 Dr. Marycarmen Rodriguez DO Work Phone: -Emergency Department Work Phone: Start: 11-26-2024 End: 11-26-2024 Emergency department patient visit Dr. Marycarmen Rodriguez DO Work Phone: -Emergency Department Start: 11-22-2024 End: 11-22-[address] Marycarmen Rodriguez DO Work Phone: -Radiology [facility] Start: 11-22-2024 End: 11-22-2024 Gustabo Pérez WAITER/WAITRESS TAKE OUT-C -Radiology [facility] Work Phone: Start: 11-22-2024 End: 11-22-2024 Gustabo Pérez WAITER/WAITRESS TAKE OUT-C -[facility] Work Phone: Start: 11-22-2024 End: 11-22-[address] Marycarmen Rodriguez DO Work Phone: -[facility] Start: 11-22-2024 End: 11-22-2024 ambulatory Marycarmen Rodriguez Facility:[facility] Start: 11-20-2024 End: 11-20-[address] Marycarmen Rodriguez DO Work Phone: -Radiology [facility] Start: 11-20-2024 End: 11-20-2024 Dr. Brooks Carpenter MD -Radiology [facility] Work Phone: Start: 11-20-2024 End: 11-20-2024 ambulatory Marycarmen Rodriguez Facility:[facility] Start: 11-13-2024 ambulatory Gustabo Pérez NP Facility :[facility] Start: 11-13-2024 Non-patient / Non-visit Dr. Jose colon MD -[facility] Start: 11-13-2024 Dr. Jose Hay MD -[facility] Start: 11-10-2024 End: 11-10-[address] Marycarmen Rodriguez DO Work Phone: -Sleep Lab Start: 11-10-2024 End: 11-10-2024 Patient encounter procedure WAITER/WAITRESS TAKE OUT Maren Olivas -Sleep Lab Work Phone: Start: 11-10-2024 End: 11-10-2024 WAITER/WAITRESS TAKE OUT Maren Olivas -Sleep Lab Work Phone: Start: 11-10-2024 ambulatory Marycarmen Rodriguez Facility: [facility] Start: 11-10-2024 Non-patient / Non-visit Dr. Lance pereira MD -[facility] Work Phone: Start: 11-10-2024 Dr. Lanec Rodriguez MD -[facility] Work Phone: Start: 11-10-2024 End: 11-10-[address] Marycarmen Rodriguez DO Work Phone: -Cardiovascular Services Start: 11-10-2024 End: 11-10-2024 Patient encounter procedure Gustabo Pérez WAITER/WAITRESS TAKE OUT-C -Cardiovascular Services Work Phone: Start: 11-10-2024 End: 11-10-2024 Gustabo Pérez WAITER/WAITRESS TAKE OUT-C -Cardiovascular Services Work Phone: Start: 11-09-2024 End: 11-10-[address] Marycarmen Rodriguez DO Work Phone: -Laboratory [facility] Calvillo [facility] Start: 11-09-2024 End: 11-09-[address] Marycarmen Rodriguez DO -Laboratory [facility]ites[facility] Calvillo [facility] Start: 11-09-2024 End: 11-09-2024 Dr. Marycarmen Rodriguez DO -Laboratory Ritesh Calvillo [facility] Start: 11-09-2024 End: 11-09-2024 ambulatory Marycarmen Rodriguez Facility:[facility] Start: 10-31-2024 End: 10-31-2024 Patient encounter procedure WAITER/WAITRESS TAKE OUT Maren Olivas -[facility] Work Phone: Start: 10-31-2024 End: 10-31-2024 WAITER/WAITRESS TAKE OUT Maren Olivas -[facility] Work Phone: Start: 10-31-2024 End: 10-31-[address] Marycarmen Rodriguez DO Work Phone: -[facility] Start: 10-26-2024 End: 10-26-[address] Marycarmen Rodriguez DO Work Phone: -Sleep Lab Start: 10-26-2024 End: 10-26-2024 Patient encounter procedure Marni Horn WAITER/WAITRESS TAKE OUT-C -Sleep Lab Work Phone: Start: 10-26-2024 End: 10-26-2024 Marni Horn WAITER/WAITRESS TAKE OUT-C -Sleep Lab Work Phone: Start: 10-25-2024 End: 10-25-2024 Patient encounter procedure Gustabo Pérez WAITER/WAITRESS TAKE OUT-C -[facility] Work Phone: Start: 10-25-2024 End: 10-25-2024 Gustabo Pérez WAITER/WAITRESS TAKE OUT-C -[facility] Work Phone: Start: 10-25-2024 End: 10-26-[address] Marycarmen Rodriguez DO Work Phone: [facility] Work Phone: Start: 10-18-2024 End: 10-18-[address] Marycarmen Rodriguez DO Work Phone: [facility] Work Phone: Start: 10-18-2024 End: 10-18-2024 Patient encounter procedure Marni Horn NP-C -Sleep Lab Work Phone: Start: 10-18-2024 End: 10-18-2024 Marni Horn WAITER/WAITRESS TAKE OUT-C -Sleep Lab Work Phone: Start: 10-18-2024 End: 10-18-[address] Marycarmen Rodriguez DO Work Phone: [facility] Work Phone: Start: 10-18-2024 End: 10-18-[address] Brooks Carpenter MD -Laboratory Work Phone: Start: 10-18-2024 End: 10-18-2024 Dr. Brooks Carpenter MD -Laboratory Work Phone: Start: 10-18-2024 End: 10-18-2024 ambulatory Marycarmen Rodriguez Facility:[facility] Start: 09-29-2024 End: 09-29-[address] Marycarmen Rodriguez DO Work Phone: [facility] Work Phone: Start: 09-29-2024 End: 09-29-[address] Marycarmen Rodriguez DO -Laboratory [place] Work Phone: Start: 09-29-2024 End: 09-29-2024 Dr. Marycarmen Rodriguez DO -Laboratory [place] Work Phone: Start: 09-29-2024 End: 09-29-2024 ambulatory Marycarmen Rodriguez Facility:[facility] Start: 09-22-2024 End: 09-22-[address] Marycarmen Rodriguez DO Work Phone: [facility] Work Phone: Start: 09-22-2024 End: 09-22-2024 Patient encounter procedure Marni Horn WAITER/WAITRESS TAKE OUT-C -Sleep Lab Work Phone: Start: 09-22-2024 End: 09-22-2024 Marni Horn WAITER/WAITRESS TAKE OUT-C -Sleep Lab Work Phone: Start: 09-22-2024 End: 09-22-2024 ambulatory Marni Horn NP Facility:[facility] Start: 09-20-2024 End: 09-20-[address] Marycarmen Rodriguez DO Work Phone: [facility] Work Phone: Start: 09-20-2024 End: 09-20-2024 Patient encounter procedure WAITER/WAITRESS TAKE OUT Maren Olivas -Laboratory Work Phone: Start: 09-20-2024 End: 09-20-2024 WAITER/WAITRESS TAKE OUT Maren Olivas -Laboratory Work Phone: Start: 09-20-2024 End: 09-20-2024 Patient encounter procedure ELIAZAR Olivas -[facility] Work Phone: Start: 09-20-2024 End: 09-20-2024 WAITER/WAITRESS TAKE OUT Maren Olivas [facility] Work Phone: Start: 09-20-2024 End: 09-20-[address] Marycarmen Rodriguez DO Work Phone: [facility] Work Phone: Start: 09-20-2024 End: 09-20-2024 ambulatory Maren Olivas Facility:[facility] Start: 08-03-2024 End: 08-03-[address] Marycarmen Rodriguez DO Work Phone: [facility] Work Phone: Start: 08-03-2024 End: 08-03-2024 Patient encounter procedure Marni Horn WAITER/WAITRESS TAKE OUT-C -Sleep Lab Work Phone: Start: 08-03-2024 End: 08-03-2024 Marni Horn WAITER/WAITRESS TAKE OUT-C -Sleep Lab Work Phone: Start: 08-03-2024 End: 08-03-2024 ambulatory Marycarmen Rodriguez Facility:[facility] Start: 07-18-2024 ambulatory Marycarmen Rodriguez Facility: [facility] Start: 07-18-2024 Non-patient / Non-visit Dr. Zen Olguin own DO -[facility] Start: 07-18-2024 End: 07-18-[address] Marycarmen Rodriguez DO Work Phone: [facility] Work Phone: Start: 07-18-2024 End: 07-18-2024 Patient encounter procedure Marni Horn WAITER/WAITRESS TAKE OUT-C -Pulmonary Services/Neurology Work Phone: Start: 07-17-2024 Non-patient / Non-visit Dr. Zen Olguin own DO -[facility] Start: 07-17-2024 End: 07-18-[address] Marycarmen Rodriguez DO Work Phone: [facility] Work Phone: Start: 07-17-2024 End: 07-17-2024 Patient encounter procedure Marni Horn NP-C -Sleep Lab Work Phone: Start: 07-17-2024 End: 07-17-2024 ambulatory Marycarmen Rodriguez Facility:[facility] Start: 07-07-2024 End: 07-07-[address] Marycarmen Rodriguez DO Work Phone: [facility] Work Phone: Start: 07-07-2024 End: 07-07-2024 Patient encounter procedure Marni Horn NP-C -Sleep Lab Work Phone: Start: 07-07-2024 End: 07-07-2024 ambulatory Marycarmen Jennifer Facility:[facility] Start: 07-03-2024 End: 07-03-2024 Patient encounter procedure Marni Horn NP-C -[facility] Work Phone: Start: 07-03-2024 End: 07-03-2024 ambulatory Marycarmen Rodriguez Facility:[facility] Start: 06-30-2024 End: 06-30-[address] Marycarmen Rodriguez DO Work Phone: [facility] Work Phone: Start: 06-30-2024 End: 06-30-[address] Marycarmen Rodriguez DO [facility] Start: 06-30-2024 End: 06-30-2024 ambulatory Marycarmen Rodriguez Facility:[facility] Start: 04-17-2024 End: 04-17-2024 Patient encounter procedure Gustabo Pérez WAITER/WAITRESS TAKE OUT-C -[facility] Work Phone: Start: 04-17-2024 End: 04-17-2024 ambulatory Gustabo Pérez NP Facility:[facility] Start: 04-17-2024 End: 04-17-2024 ambulatory Gustabo Pérez NP Facility:[facility] Start: 03-27-2024 End: 03-27-[address] Jose Hay MD -[facility] Work Phone: Start: 03-27-2024 End: 03-[facility] Start: 03-23-2024 End: 03-23-[address] [facility] Start: 03-23-2024 End: 03-23-2024 ambulatory Marycarmen Rodriguez Facility:[facility] Start: 03-20-2024 End: 03-20-[address] Jose Hay MD -[facility] Work Phone: Start: 03-20-2024 End: 03-20-2024 ambulatory [facility] Facility:[facility] Start: 05-07-2023 End: 05-07-2023 ambulatory [facility] Work Phone: Start: 05-07-2023 End: 05-07-2023 Patient encounter procedure [facility] Martini [facility] Start: 12-29-2022 Non-patient / Non-visit Dr. pA Rodriguez Work Phone: [facility] Work Phone: Start: 12-28-2022 Non-patient / Non-visit Dr. Ap Rodriguez Work Phone: [facility] Start: 12-28-2022 End: 12-28-[address] Marycarmen Rodriguez Work Phone: [facility] Work Phone: Start: 12-28-2022 End: 12-28-[address] Marycarmen Rodriguez Work Phone: [facility]-Cardiovascula r Services Work Phone: Start: 12-21-2022 End: 12-21-2022 Admission to same day surgery center Dr. Marycarmen Rodriguez Work Phone: [facility]-Clinical Research Assistant/Special Procedures Work Phone: Start: 12-21-2022 End: 12-21-[address] Marycarmen Rodriguez Work Phone: [facility] Work Phone: Start: 12-15-2022 End: 12-15-[address] Marycarmen Rodriguez Work Phone: [facility] Work Phone: Start: 12-15-2022 End: 12-15-[address] Marycarmen Rodriguez Work Phone: [facility]-Laboratory Work Phone: Start: 12-15-2022 End: 12-15-[address] Marycarmen oRdriguez Work Phone: [facility] Work Phone: Start: 10-16-2022 End: 10-16-2022 ambulatory Marycarmen Rodriguez [facility] Work Phone: Start: 10-16-2022 End: 10-16-2022 Patient encounter procedure Marycarmen Rodriguez [facility]-Pulmonary Services/Neurology Start: 10-13-2022 End: 10-13-2022 ambulatory Marycarmen SWAIN [facility] Work Phone: Start: 10-13-2022 End: 10-13-2022 Patient encounter procedure Marycarmen SWAIN [facility] Start: 09-21-2022 Non-patient / Non-visit Marycarmen gifford [facility] Start: 09-20-2022 Non-patient / Non-visit Marycarmen gifford [facility] [place] [facility] Physicians Start: 09-19-2022 Non-patient / Non-visit Marycarmen gifford [facility] Start: 09-18-2022 Non-patient / Non-visit Marycarmen gifford [facility] Start: 09-17-2022 End: 09-17-2022 Non-patient / Non-visit Marycarmen SWAIN [facility] Start: 09-17-2022 End: 09-21-2022 Evaluation and management of inpatient [facility]carmen [facility] Start: 09-09-2022 Non-patient / Non-visit Marycarmen gifford [facility] [place] [facility] Start: 09-01-2022 Non-patient / Non-visit Marycarmen gifford [facility] Start: 08-31-2022 End: 08-31-2022 Non-patient / Non-visit Marycarmen SWAIN [facility] Start: 08-31-2022 Non-patient / Non-visit Marycarmen gifford [facility] [place] [facility] Start: 08-31-2022 End: 09-01-2022 Evaluation and management of inpatient Maryacrmen Rodriguez [facility] Start: 08-31-2022 End: 09-01-2022 observation encounter [facility] Work Phone: Start: 08-19-2022 End: 08-19-2022 ambulatory Marycarmen [facility] Work Phone: Start: 08-19-2022 End: 08-19-2022 Patient encounter procedure Marycarmen Jennifer [facility] [place] [facility] Start: 08-11-2022 Non-patient / Non-visit Marycarmen gifford [facility] Start: 06-11-2022 End: 06-11-[address] Marycarmen Rodriguez Work Phone: [facility] Work Phone: Start: 06-11-2022 End: 06-11-[address] Marycarmen Rodriguez Work Phone: [facility] Start: 04-21-2022 Non-patient / Non-visit Dr. Ap Rodriguez Work Phone: [facility] Start: 04-21-2022 End: 04-21-[address] Marycarmen Rodriguez Work Phone: [facility] Work Phone: Start: 04-21-2022 End: 04-21-[address] Marycarmen Rodriguez Work Phone: [facility]-Cardiovascula r Services Start: 04-16-2022 End: 04-16-[address] [facility]armen [facility] Start: 04-14-2022 End: 04-14-[address] Marycarmen Rodriguez Work Phone: [facility] Work Phone: Start: 04-14-2022 End: 04-14-[address] Marycarmen Rodriguez [facility] Phone[facility] Start: 04-14-2022 End: 04-14-[address] Marycarmen Rodriguez Work Phone: [facility] Start: 03-27-2022 End: 03-27-[address] Marycarmen Rodriguez Work Phone: [facility] Start: 01-20-2022 End: 01-20-[address] Marycarmen Rodriguez Work Phone: [facility]-Cat Scan, [facility] Start: 01-07-2022 End: 01-07-[address] Marycarmen Rodriguez [facility] Start: 11-27-2021 Non-patient / Non-visit Dr. Ap Rodriguez Work Phone: [facility] Start: 11-26-2021 End: 11-26-[address] Marycarmen Rodriguez Work Phone: [facility]-Pulmonary Services/Neurology Start: 11-21-2021 End: 11-21-[address] Marycarmen Rodriguez Work Phone: [facility] Start: 11-16-2021 End: 11-16-2021 Emergency department patient visit Dr. Marycarmen Rodriguez Work Phone: [facility]-Emergency Department Start: 10-28-2021 End: 10-28-[address] Marycarmen Rodriguez Work Phone: [facility] Start: 09-16-2021 End: 09-16-[address] Marycarmen Rodriguez Work Phone: [facility] Start: 09-16-2021 End: 09-16-[address] Marycarmen Rodriguez Work Phone: [facility] Start: 08-15-2021 Non-patient / Non-visit Dr. Ap Rodriguez Work Phone: [facility] Start: 08-15-2021 Non-patient / Non-visit Dr. Ap Rodriguez Work Phone: [facility] Start: 08-15-2021 End: 08-15-[address] Marycarmen Rodriguez Work Phone: [facility]-Cardiovascula r Services Start: 08-01-2021 End: 08-01-[address] Marycarmen Rodriguez Work Phone: [facility] Start: 06-10-2021 End: 06-10-2021 Emergency department patient visit Dr. Marycarmen Rodriguez Work Phone: [facility]-Emergency Department Start: 05-19-2021 End: 05-19-2021 Emergency department patient visit Dr. Marycarmen Rodriguez Work Phone: [facility]-Emergency Department Start: 05-16-2021 End: 05-16-[address] 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); Mixed hyperlipidemia Start: 12-18-2020 ambulatory MIN [facility] y:[facility] Start: 10-15-2020 End: 10-16-2020 ambulatory [facility] Start: 10-15-2020 End: 10-15-2020 Subsequent hospital visit by physician Eladio Ingram MD Work Phone: [facility] Comment on above: Arrived Start: 10-10-2020 ambulatory FERNANDA ACUÑA [facility] Ambulatory Start: 10-09-2020 End: 10-09-2020 Orders Only Fernanda Acuña RESOLUTION MANAGER Work Phone: [employer] Office Comment on above: DEAN (dyspnea on exer tion) (Primary Dx) Start: 10-09-2020 End: 10-09-2020 Office outpatient new 45 minutes Fernanda Acuña CNP Work Phone: [facility] Office Comment on above: DEAN (dyspnea on exer tion); Essential hypertension; Type 2 diabetes mellitus without complication, without long-term current use of insulin (HCC); MATTHEW (obstructive sleep apnea); Coronary artery disease involving andreafski coronary artery of andreafski heart without angina pectoris Start: 10-04-2020 End: 10-04-2020 Orders Only Deisi March RN [facility] Office Comment on above: Shortness of breath (Primary Dx) Start: 12-17-2016 Office/outpatient vi sit, est, level 4 Eladio Ingram Work Phone: [facility] Start: 11-28-2016 End: 11-28-2016 Patient encounter procedure [facility] Procedures Date Procedure Procedure Detail Performing Clinician Start: 12-02-2024 MRI of brain without contrast Dr. Marycarmen Rodriguez DO Work Phone: Start: 12-02-2024 Blood count smear mc rscp w/mnl difrntl wbc count Dr. Marycarmen Rodriguez DO Work Phone: Start: 12-02-[address] Marycarmen Rodriguez DO Work Phone: Start: 12-02-2024 Mean corpuscular hemoglobin concentration determination Dr. Marycarmen Rodriguez DO Work Phone: Start: 12-02-2024 Nucleated red blood cell count procedure Dr. Marycarmen Rodriguez DO Work Phone: Start: 12-02-2024 Platelet mean volume determination Dr. Marycarmen Rodriguez DO Work Phone: Start: 12-01-2024 CT of head without contrast Dr. Marycarmen Rodriguez DO Work Phone: Start: 11-30-2024 Plain chest X-ray Dr. Tricia Rodriguez DO Work Phone: Start: 11-30-2024 Coagulation time, activated Dr. Marycarmen Rodriguez DO Work Phone: Start: 11-30-2024 Blood count smear mc rscp w/mnl difrntl wbc count Dr. Marycarmen Rodriguez DO Work Phone: Start: 11-30-2024 Calculation of international normalized ratio Dr. Marycarmen Rodriguez DO Work Phone: Start: 11-30-2024 Mean corpuscular hemoglobin concentration determination Dr. Marycarmen Rodriguez DO Work Phone: Start: 11-30-2024 Nucleated red blood cell count procedure Dr. Marycarmen Rodriguez DO Work Phone: Start: 11-30-2024 Platelet mean volume determination Dr. Marycarmen Rodriguez DO Work Phone: Start: 11-28-[address] Marycarmen Rodriguez DO Work Phone: Start: 11-28-2024 Mean corpuscular hemoglobin concentration determination Dr. Marycarmen Rodriguez DO Work Phone: Start: 11-28-2024 Platelet mean volume determination Dr. Marycarmen Rodriguez DO Work Phone: Start: 11-27-2024 Coagulation time, activated Dr. Marycarmen Rodriguez DO Work Phone: Start: 11-26-2024 Plain x-ray of hand Dr. Marycarmen Rodriguez DO Work Phone: Start: 11-26-2024 CT cervical spine wi thout contrast Dr. Marycarmen Rodriguez DO Work Phone: Start: 11-26-2024 CT of head without contrast Dr. Marycarmen Rodriguez DO Work Phone: Start: 11-26-2024 Plain chest X-ray Dr. Tricia Rodriguez DO Work Phone: Start: 11-26-2024 End: 11-26-2024 X-ray of knee, four or more views Dr[address] Marycarmen Rodriguez DO Work Phone: Start: 11-26-2024 Blood count smear mc rscp w/mnl difrntl wbc count Dr. Marycarmen Rodriguez DO Work Phone: Start: 11-26-[address] Marycarmen Rodriguez DO Work Phone: Start: 11-26-2024 Mean corpuscular hemoglobin concentration determination Dr. Marycarmen Rodriguez DO Work Phone: Start: 11-26-2024 Nucleated red blood cell count procedure Dr. Marycarmen Rodriguez DO Work Phone: Start: 11-26-2024 Platelet mean volume determination Dr. Marycarmen Rodriguez DO Work Phone: Start: 11-22-2024 X-ray of chest, PA a [...] Work Phone: Comment on above: Test Ordered: [id number] Screen, Urine Negative ng/mL UI Reference Range: Ejizkp=631Rmvdmnsmjwv test includes Amphetamine and Methamphetamine.Barbiturates Negative ng/mL UI Reference Range: Adfywq=983Uysrkbvwerxycen Negative ng/mL UI Reference Range: Oyvobf=615Jxyodmv (Metab.), Urine Negative ng/mL UI Reference Range: Fgqlck=524Smxhypf Note: ng/mL UI See Final Results Reference Range: Lfrfov=328Mwlvlq test includes Codeine, Morphine, Hydromorphone, Hydrocodone.Opiates Positive [A ] UI Reference Range: Clftsy=500Rgltgs test includes Codeine, Morphine, Hydromorphone, Hydrocodone.Codeine Negative UI Reference Range: Bqtlce=405Akrcipsa Negative UI Reference Range: Itlkxt=473Srjkekardbggw Negative UI Reference Range: Cfnszj=311Beyzqkahrzx Positive [A ] UI Reference Range: .Hydrocodone Conf, MS, UR 349 ng/mL UI Reference Range: Gbyhkj=8497-Qnkophsvbsdjcd, Urine Negative ng/mL UI Reference Range: Cutoff=10Oxycodone/Oxymorphone, Urine Negative ng/mL UI Reference Range: Ilvdbj=709Jkxy includes Oxycodone and OxymorphonePCP, Urine Negative ng/mL UI Reference Range: Cutoff=25Methadone Screen, Urine Negative ng/mL UI Reference Range: Ewcmwx=786Ptecvuwnldjj, Urine Negative ng/mL UI Reference Range: Ilzzfm=833Blyosvzc, Urine Negative ng/mL UI Reference Range: Cutoff=2.0Test includes Fentanyl and NorfentanylThis test was developed and its performance characteristicsdetermined by [employer]. It has not been cleared orapproved by the Food and Drug Administration.Tramadol Negative ng/mL UI Reference Range: Gbdajy=391Genqerzaliyyy, Urine Negative ng/mL UI Reference Range: Cutoff=10Creatinine, Urine 36.9 mg/dL UI Reference Range: 20.0-300.0pH, Urine 6.1 UI Reference Range: 4.5-8.9Performed at: [facility] [id number] [place], [place] [id number] Director: Erik Wallis PhD, Phone: [phone] at: [address] [id number] Director: Bahrath Hawthorne PhD, Phone: [phone] Start: 10-18-[address] Marycarmen [...] SWAIN Start: 09-19-2022 MRI of cervical spine Tircia SWAIN Start: 09-17-2022 MRI of brain without [...] w/le ast 12 lds w/i&r Fernanda Acuña RESOLUTION MANAGER Work Phone: Start: 08-18-2018 History of percutane ous transluminal coronary angioplasty History of percutaneous transluminal coronary angioplasty Dr. 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 Alexandr Mcclain Start: 08-13-2017 History of placement of stent for coronary artery disease History of coronary artery stent placement Dr. 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 Procedure aborted. 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6617HNW-UOHN-Bx and Stent-Mid RCA x 2 Multi Link Mini Vision Rx Stent 4.0 x 28 mm 01/21/2006 Plan of Treatment Date Care Activity Detail Author Start: 12-03-2024 Electrocardiographic procedure [facility] Start: 12-02-2024 Patient discharge [facility] Start: 12-02-2024 Electrocardiographic procedure [facility] Start: 12-02-2024 Magnetic resonance angiography of head without contrast [facility] Start: 12-02-2024 Magnetic resonance angiography of neck without contrast [facility] Start: 12-02-2024 MRA Head vessels WO contrast [facility] Start: 12-02-2024 MRA Neck vessels WO contrast [facility] Start: 12-01-2024 Vital signs measurements [facility] Start: 12-01-2024 Aspiration precautions [facility] Start: 12-01-2024 Cardiac monitoring [facility] Start: 12-01-2024 Catheterization of vein [facility] Start: 12-01-2024 Consultation [facility] Start: 12-01-2024 Continuous pulse oximetry [facility] Start: 12-01-2024 Elevation of head of bed [facility] Start: 12-01-2024 Exercises [facility] Start: 12-01-2024 Notification of physician [facility] Start: 12-01-2024 Oxygen therapy [facility] Start: 12-01-2024 Patient referral to dietitian [facility] Start: 12-01-2024 Referral to occupational therapist [facility] Start: 12-01-2024 Referral to service [facility] Start: 12-01-2024 Speech therapy assessment [facility] Start: 12-01-2024 Telemedicine consultation with patient [facility] Start: 12-01-2024 Tobacco use cessation education [facility] Start: 12-01-2024 End: 12-01-2024 [facility] Start: 12-01-2024 [facility] Start: 12-01-2024 [facility] Start: 12-01-2024 Electrocardiographic procedure [facility] Start: 12-01-2024 Continuous positive airway pressure ventilation treatment [facility] Start: 12-01-2024 US Heart [facility] Start: 12-01-2024 Complete blood count [facility] Start: 11-30-2024 End: 11-30-2024 [facility] Start: 11-30-2024 Following clinical pathway protocol [facility] Start: 11-30-2024 Ambulation without limitation [facility] Start: 11-30-2024 Assessment of risk of venous thromboembolism [facility] Start: 11-30-2024 Insertion of catheter into peripheral vein [facility] Start: 11-30-2024 Measuring intake and output [facility] Start: 11-30-2024 Providing care according to standard [facility] Start: 11-30-2024 Referral to service [facility] Start: 11-30-2024 Care regimes management [facility] Start: 11-30-2024 Complete blood count [facility] Start: 11-30-2024 Elevation of head of bed [facility] Start: 11-30-2024 Admission procedure [facility] Start: 11-30-2024 Cardiac monitoring [facility] Start: 11-30-2024 Cardiac rehabilitation - phase 1 [facility] Start: 11-30-2024 Cardiac rehabilitation - phase 2 [facility] Start: 11-30-2024 Dietary regime [facility] Start: 11-30-2024 Log roll [facility] Start: 11-30-2024 End: 11-30-2024 Notification of physician [facility] Start: 11-30-2024 Oxygen therapy [facility] Start: 11-30-2024 Patient discharge [facility] Start: 11-30-2024 Provision of activity privileges [facility] Start: 11-30-2024 Pulse taking [facility] Start: 11-30-2024 Hospital admission, emergency, from emergency room, medical nature [facility] Start: 11-30-2024 Electrocardiographic procedure [facility] Start: 11-30-2024 End: 11-30-2024 [facility] Start: 11-30-2024 Partial thromboplastin time, activated [facility] Start: 11-30-2024 Prothrombin time [facility] Start: 11-28-2024 [facility] Start: 11-28-2024 Patient discharge [facility] Start: 11-28-2024 Complete blood count [facility] Start: 11-27-2024 Following clinical pathway protocol [facility] Start: 11-27-2024 Elevation of head of bed [facility] Start: 11-27-2024 Dietary regime [facility] Start: 11-27-2024 Log roll [facility] Start: 11-27-2024 Provision of activity privileges [facility] Start: 11-27-2024 End: 11-27-2024 [facility] Start: 11-27-2024 Admission procedure [facility] Start: 11-27-2024 Cardiac monitoring [facility] Start: 11-27-2024 Cardiac rehabilitation - phase 1 [facility] Start: 11-27-2024 Cardiac rehabilitation - phase 2 [facility] Start: 11-27-2024 Notification of physician [facility] Start: 11-27-2024 Oxygen therapy [facility] Start: 11-27-2024 Pulse taking [facility] Start: 11-27-2024 Continuous positive airway pressure ventilation treatment [facility] Start: 11-27-2024 Inhalation therapy procedure [facility] Start: 11-26-2024 [facility] Start: 11-26-2024 [facility] Start: 11-22-2024 Evaluation of diagnostic study results [facility] Start: 10-25-2024 Evaluation of diagnostic study results [facility] Start: 07-25-2024 Walking distance 6 minutes [facility] Start: 07-17-2024 Measurement of respiratory function [facility] Start: 12-21-2022 Patient discharge [facility] Start: 10-05-2022 Measurement of respiratory function [facility] Start: 09-21-2022 Patient discharge [facility] Start: 09-20-2022 Telepractice consultation [facility] Start: 09-18-2022 Following clinical pathway protocol [facility] Start: 09-17-2022 Aspiration precautions [facility] Start: 09-17-2022 Assessment of risk of venous thromboembolism [facility] Start: 09-17-2022 Cardiac monitoring [facility] Start: 09-17-2022 Care regimes management [facility] Start: 09-17-2022 Catheterization of vein [facility] Start: 09-17-2022 Continuous positive airway pressure ventilation treatment [facility] Start: 09-17-2022 Continuous pulse oximetry [facility] Start: 09-17-2022 Elevation of head of bed [facility] Start: 09-17-2022 Exercises [facility] Start: 09-17-2022 Fall prevention [facility] Start: 09-17-2022 Implementation of planned interventions [facility] Start: 09-17-2022 Inhalation therapy procedure [facility] Start: 09-17-2022 Insertion of catheter into peripheral vein [facility] Start: 09-17-2022 Introduction of urinary catheter [facility] Start: 09-17-2022 Measuring intake and output [facility] Start: 09-17-2022 Notification of physician [facility] Start: 09-17-2022 Oxygen therapy [facility] Start: 09-17-2022 End: 09-18-2022 Patient referral to dietitian [facility] Start: 09-17-2022 Providing care according to standard [facility] Start: 09-17-2022 Provision of activity privileges [facility] Start: 09-17-2022 Referral to occupational therapist [facility] Start: 09-17-2022 Referral to service [facility] Start: 09-17-2022 Speech therapy assessment [facility] Start: 09-17-2022 Tobacco use cessation education [facility] Start: 09-17-2022 [facility] Start: 09-17-2022 Admission procedure [facility] Start: 09-01-2022 Patient discharge [facility] Start: 08-31-2022 Patient referral [facility] Work Phone: Start: 08-31-2022 Following clinical pathway protocol [facility] Start: 08-31-2022 Pulse taking [facility] Start: 08-31-2022 Cardiac monitoring [facility] Start: 08-31-2022 Cardiac rehabilitation - phase 1 [facility] Start: 08-31-2022 Cardiac rehabilitation - phase 2 [facility] Start: 08-31-2022 Notification of physician [facility] Start: 08-31-2022 Oxygen therapy [facility] Start: 08-31-2022 Patient discharge [facility] Start: 08-31-2022 Taking patient vital signs [facility] Start: 08-31-2022 Vascular disease risk assessment [facility] Start: 08-31-2022 Vital signs measurements [facility] Start: 08-31-2022 End: 08-31-2022 [facility] Start: 08-31-2022 Admission procedure [facility] Start: 11-16-2021 [facility] Work Phone: Start: 01-10-2021 End: 01-10-2021 Admission to same day surgery center 01/10/2021 Surgery Cardiology Eladio Ingram MD [address] [facility] [address] [place] [address] Left Heart Cath Possible PTCA/Stent [facility] Clinical Research Assistant Comment on above: Left Heart Cath Possible PTCA/Stent Start: 01-10-2021 Subsequent hospital visit by physician 01/10/2021 Hospital Encounter Eladio Ingram MD [address] [facility] [address] [place] [address] [facility] Start: 01-01-2021 Influenza vaccination [facility] Start: 12-26-2020 End: 12-26-2020 Patient encounter procedure 12/26/2020 Office Visit Cardiology Marycarmen Rodriguez, [address] [place], [place] [address] Eladio Ingram MD [address] [facility] [address] [place] [address] [phone] [facility] Office Start: 10-15-2020 End: 10-15-2020 Patient encounter procedure 10/15/2020 Appointment Cardiology Eladio Ingram MD [address] [facility] [address] [place] [address] [phone] [facility] Start: 10-09-2020 End: 10-09-2020 Patient encounter procedure 10/09/2020 Office Visit Cardiology Fernanda Acuña, RESOLUTION MANAGER [address] [place] [address] [phone] [facility] Start: 11-05-2017 Prostate specific antigen measurement PSA Level [facility] Start: 06-01-2017 HEMOGLOBIN A1C HEMOGLOBIN A1C [facility] Work Phone: Start: 06-01-2017 Hemoglobin A1c measurement A1C [facility] Start: 06-01-2017 Hemoglobin A1c/Hemoglobin.total mass fraction (Bld) HEMOGLOBIN A1C [facility] Work Phone: Start: 01-01-2017 SEQUENTIAL INFLUENZA VACCINE (#1) SEQUENTIAL INFLUENZA VACCINE (#1) [facility] Work Phone: Start: 12-17-2016 Ambulatory 12/17/2016 Office Visit Cardiology Eladio Ingram MD [address] [place] [address] [phone] [facility] Start: 2010 ABDOMINAL AORTIC ULTRASOUND ABDOMINAL AORTIC ULTRASOUND [facility] Work Phone: Start: 2010 Fall risk assessment Falls Risk Assessment [facility] Start: 2010 PNEUMOCOCCAL VACCINE AGE 65+ (1 of 2 - PCV13) PNEUMOCOCCAL VACCINE AGE 65+ (1 of 2 - PCV13) [facility] Work Phone: Start: 2005 Zoster vacc, sc ZOSTER VACCINE [facility] Work Phone: Start: 08-01-1995 Administration of herpes zoster vaccine Zoster Vaccines (1 of 2) [facility] Start: 08-01-1995 Screening for malignant neoplasm of colon [facility] Start: 08-01-1963 Hepatitis C screening Hepatitis C Screening [facility] Start: 1957 COVID-19 Vaccine (1) COVID-19 Vaccine (1) [facility] Start: 08-01-1955 3 comp foot exam completed FOOT EXAM [facility] Work Phone: Start: 08-01-1955 Albumin Test strip detection limit <= 20 mg/L mass conc (U) URINE MICROALBUMIN [facility] Work Phone: Start: 08-01-1955 Diabetic foot examination Foot Exam [facility] Start: 08-01-1955 Microalbumin measurement, urine, quantitative Urine Microalbumin [facility] Start: 08-01-1955 Ophthalmic examination and evaluation OPHTHALMOLOGY EXAM [facility] Start: 08-01-1955 FOOT EXAM FOOT EXAM [facility] Work Phone: Start: 08-01-1955 OPHTHALMOLOGY EXAM OPHTHALMOLOGY EXAM [facility] Work Phone: Start: 08-01-1955 URINE MICROALBUMIN URINE MICROALBUMIN [facility] Work Phone: Start: 08-01-1951 Pneumococcal Vaccine: Age 65+ (1 of 2 - PPSV23) Pneumococcal Vaccine: Age 65+ (1 of 2 - PPSV23) [facility] Start: 1948 History and physical examination, annual for health maintenance Wellness Visit [facility] Start: 1945 Colonoscopy COLONOSCOPY [facility] Work Phone: Start: 1945 Tetanus vaccination Tetanus: Every 10yrs [facility] Start: 1945 Colonoscopy COLONOSCOPY [facility] Work Phone: Start: 1945 End: 1945 HEPATITIS C SCREENING HEPATITIS C SCREENING [facility] Work Phone: Start: 1945 End: 1945 TETANUS EVERY 10 YR TETANUS EVERY 10 YR [facility] Work Phone: Alanine aminotransfe rase [Enzymatic activity/volume] in Serum or Plasma [facility] Alanine aminotransfe rase [Enzymatic activity/volume] in Serum or Plasma [facility] Albumin [Mass/volume ] in Serum or Plasma [facility] Albumin [Mass/volume ] in Serum or Plasma [facility] Alkaline phosphatase [Enzymatic activity/volume] in Serum or Plasma [facility] Alkaline phosphatase [Enzymatic activity/volume] in Serum or Plasma [facility] Anion gap in Serum or Plasma [facility] Anion gap in Serum or Plasma [facility] End: 12-26-2021 Basic metabolic 2000 panel - Serum or Plasma Basic metabolic panel Lab Routine 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, unspecified whether andreafski or transplanted heart (HCC) Essential hypertension 1 Occurrences starting 12/26/2020 until 12/26/2021 [facility] Comment on above: 1 Occurrences starting 12/26/2020 until 12/26/2021 Basic metabolic 1999 panel - Serum or Plasma Basic metabolic panel Lab Routine 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, unspecified whether andreafski or transplanted heart (HCC) Essential hypertension 12/26/2020 11:28 AM EDT [facility] Basic metabolic 2007 panel with ionized calcium - Serum or Plasma [facility] Basic metabolic 2007 panel with ionized calcium - Serum or Plasma [facility] End: 08-17-2018 Basic metabolic panel [AGGREGATE] Basic metabolic panel Routine MATTHEW (obstructive sleep apnea) Coronary artery disease involving andreafski coronary artery of andreafski heart without angina pectoris 1 Occurrences starting 12/17/2016 until 12/17/2017 [employer] Work Phone: Bilirubin, total measurement [facility] Bilirubin, total measurement [facility] Blood chemistry [facility] BUN/Creatinine ratio [facility] BUN/Creatinine ratio [facility] Calcium [Mass/volume ] in Serum or Plasma [facility] Calcium [Mass/volume ] in Serum or Plasma [facility] Carbon dioxide, tota l [Moles/volume] in Central venous blood [facility] Carbon dioxide, tota l [Moles/volume] in Central venous blood [facility] Catheterization of l [facility] heart [facility] Catheterization of l [facility] Catheterization of l [facility] CBC W Auto Different ial panel - Blood [facility] CBC W Auto Different ial panel - Blood [facility] End: 12-26-2021 Complete blood count with white cell differential, manual CBC and differential Lab Routine 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, unspecified whether andreafski or transplanted heart (HCC) Essential hypertension 1 Occurrences starting 12/26/2020 until 12/26/2021 [employer] Work Phone: Comment on above: 1 Occurrences starting 12/26/2020 until 12/26/2021 Complete blood count with white cell differential, manual CBC and differential Lab Routine 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, unspecified whether andreafski or transplanted heart (HCC) Essential hypertension 12/26/2020 11:28 AM EDT [facility] Creatinine [Mass/vol ume] in Serum or Plasma [facility] Creatinine [Mass/vol ume] in Serum or Plasma [facility] End: 01-10-2022 CT Angiogram Aorta Chest Abdomen Pelvis CT Angiogram Aorta Chest Abdomen Pelvis Imaging Routine 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 (HCC) 1 Occurrences starting 01/10/2021 until 01/10/2022 [employer] Work Phone: Comment on above: 1 Occurrences starting 01/10/2021 until 01/10/2022 End: 12-04-2021 Echocardiography Echocardiogram complete Echocardiography Routine Shortness of breath 1 Occurrences starting 10/04/2020 until 12/04/2021 [facility] Comment on above: 1 Occurrences starting 10/04/2020 until 12/04/2021 Erythrocyte mean cor puscular volume determination [facility] Erythrocyte mean cor puscular volume determination [facility] Erythrocyte mean cor puscular volume determination [facility] Glucose [Mass/volume ] in Serum or Plasma [facility] Glucose [Mass/volume ] in Serum or Plasma [facility] Hematocrit [Volume F raction] of Blood [facility] Hematocrit [Volume F raction] of Blood [facility] Hematocrit [Volume F raction] of Blood [facility] Hemoglobin [Mass/vol ume] in Blood [facility] Hemoglobin [Mass/vol ume] in Blood [facility] Hemoglobin [Mass/vol ume] in Blood [facility] INR in Blood by Coag ulation assay [facility] LEFT HEART CATH POSS IBLE PTCA/STENT LEFT HEART CATH POSSIBLE PTCA/STENT [facility] Leukocytes [#/volume ] in Blood [facility] Leukocytes [#/volume ] in Blood [facility] Leukocytes [#/volume ] in Blood [facility] End: 12-17-2017 Magnesium Magnesium Routine MATTHEW (obstructive sleep apnea) Coronary artery disease involving andreafski coronary artery of andreafski heart without angina pectoris 1 Occurrences starting 12/17/2016 until 12/17/2017 [facility] Work Phone: Mean corpuscular hem oglobin concentration determination [facility] Mean corpuscular hem oglobin concentration determination [facility] Mean corpuscular hem oglobin concentration determination [facility] Mean corpuscular hem oglobin determination [facility] Mean corpuscular hem oglobin determination [facility] Mean corpuscular hem oglobin determination [facility] Measurement of renal function [facility] Measurement of renal function [facility] Measurement of respi ratory function [facility] Work Phone: Natriuretic peptide. B prohormone N-Terminal [Mass/volume] in Serum or Plasma [facility] Natriuretic peptide. B prohormone N-Terminal [Mass/volume] in Serum or Plasma [facility] NM Heart Views W str ess and W radionuclide IV [facility] Patient Education [facility] Work Phone: Patient referral [facility] Work Phone: Platelets [#/volume] in Blood [facility] Platelets [#/volume] in Blood [facility] Platelets [#/volume] in Blood [facility] Potassium measurement [facility] Potassium measurement [facility] Red blood cell count [facility] Red blood cell count [facility] Red blood cell count [facility] Red cell distributio n width determination [facility] Red cell distributio n width determination [facility] Red cell distributio n width determination [facility] Serum chloride measurement [facility] Serum chloride measurement [facility] Sodium measurement [facility] Sodium measurement [facility] Total protein measurement [facility] Total protein measurement [facility] Troponin T.cardiac [Mass/volume] in Serum or Plasma by High sensitivity method [facility] Troponin T.cardiac [Mass/volume] in Serum or Plasma by High sensitivity method [facility] Urea nitrogen [Mass/ volume] in Serum or Plasma [facility] Urea nitrogen [Mass/ volume] in Serum or Plasma [facility] XR Chest PA and Lateral [facility] Immunizations Immunization Date Immunization Notes Care Provider Fa cility 11-26-2024 tetanus toxoid, redu terry diphtheria toxoid, and acellular pertussis vaccine, adsorbed Dr. Marycarmen Rodriguez DO Work Phone: [facility] 02-19-2023 influenza, injectabl e, quadrivalent, preservative free Dr. Marycarmen Rodriguez DO Work Phone: [facility] 01-27-2022 influenza, injectabl e, quadrivalent, preservative free Dr. Marycarmen Rodriguez DO Work Phone: [facility] 09-04-2021 Covid ([employer]) Dr. Marycarmen hough DO Work Phone: [facility] 02-24-2021 Covid (Pfizer) Dr. Marycarmen hough DO Work Phone: [facility] 06-27-2020 Covid (Pfizer) Dr. Marycarmen hough DO Work Phone: [facility] 05-31-2020 Covid (Pfizer) Dr. Marycarmen hoguh DO Work Phone: [facility] 02-20-[address] Marycarmen Rodriguez Work Phone: [facility] 02-14-[address] Marycarmen Rodriguez Work Phone: [facility] 01-31-[address] Marycarmen Rodriguez Work Phone: [facility] 04-12-2017 influenza, high dose seasonal, preservative-free Dr. Marycarmen Rodriguez DO Work Phone: [facility] 11-29-2016 HEMOGLOBIN A1C [facility] Work Phone: 08-16-2014 pneumococcal polysaccharide vaccine, [address] Marycarmen Rodriguez DO Work Phone: [facility] 08-05-2005 hepatitis A vaccine, pediatric/adolescent dosage, [address] Marycarmen Rodriguez DO Work Phone: [facility] 01-14-2005 hepatitis A vaccine, pediatric/adolescent dosage, [address] Marycarmen Rodriguez DO Work Phone: [facility] 01-14-2005 TD(adult) unspecifie d formulation Dr. Marycarmen Rodriguez DO Work Phone: [facility] Payers Date Payer Category Payer Self-pay [id number] 2019 Unknown [id number] 1. [id number] 2019 Unknown [id number] 2012 Unknown [id number] 2.1 6.840.1.189670.3.249.13 2010 Medicare [id number] 2.16 .840.1.273114.3.249.13 2010 Medicare [id number] 1.2 .840.255846.1.13.385.2.7.3.956840.315 2010 Medicare [id number] 2010 Medicare [id number] 1945 Unknown [id number] 2.16. 840.1.813664.3.579.2.594 1945 Unknown [id number] 2.16. 840.1.836726.3.579.2.902 1945 Unknown [id number] 2.16. 840.1.891956.3.579.2.903 1945 Unknown [id number] 2.16. 840.1.943823.3.579.2.903 1945 Unknown [id number] 2.16. 840.1.237286.3.579.2.903 1945 Unknown [id number] 2.16. 840.1.491276.3.579.2.903 1945 Unknown [id number] 2.16. 840.1.040201.3.579.2.903 1945 Unknown [id number] 2.16. 840.1.412018.3.579.2.903 1945 Unknown [id number] 2.16. 840.1.188189.3.579.2.903 1945 Unknown [id number] 2.16. 840.1.350885.3.579.2.903 Unknown [id number] 2.16.8 40.1.154045.3.579.2.462 Unknown [id number] 2.16.8 40.1.655788.3.579.2.462 Unknown [id number] 2.16.8 40.1.486798.3.579.2.462 Unknown [id number] 2.16.8 40.1.222583.3.579.2.462 Unknown [id number] 2.16.8 40.1.314318.3.579.2.462 Unknown [id number] 2.16.8 40.1.318562.3.579.2.462 Unknown [id number] 2.16.8 40.1.354243.3.579.2.462 Unknown [id number] 2.16.8 40.1.434393.3.579.2.462 Unknown [id number] 2.16.8 40.1.193317.3.579.2.462 Unknown [id number] 2.16.8 40.1.270116.3.579.2.462 Unknown [id number] 2.16.8 40.1.505198.3.579.2.462 Unknown [id number] 2.16.8 40.1.974887.3.579.2.462 Unknown [id number] 2.16.8 40.1.421238.3.579.2.462 Unknown [id number] 2.16.8 40.1.897471.3.579.2.462 Unknown [id number] 2.16.8 40.1.412221.3.579.2.462 Unknown [id number] 2.16.8 40.1.837440.3.579.2.462 Unknown [id number] 2.16.8 40.1.254267.3.579.2.462 Unknown [id number] 2.16.8 40.1.259623.3.579.2.462 Unknown [id number] 2.16.8 40.1.317617.3.579.2.462 Unknown [id number] 2.16.8 40.1.821389.3.579.2.462 Unknown [id number] 2.16.8 40.1.238493.3.579.2.462 Unknown [id number] 2.16.8 40.1.282444.3.579.2.462 Unknown [id number] 2.16.8 40.1.858047.3.579.2.462 Unknown [id number] 2.16.8 40.1.945091.3.579.2.462 Unknown [id number] 2.16.8 40.1.685399.3.579.2.462 Unknown [id number] 2.16.8 40.1.776160.3.579.2.462 Unknown [id number] 2.16.8 40.1.037018.3.579.2.462 Unknown [id number] 2.16.8 40.1.302268.3.579.2.462 Unknown [id number] 2.16.8 40.1.475529.3.579.2.462 Unknown [id number] 2.16.8 40.1.764443.3.579.2.462 Unknown [id number] 2.16.8 40.1.657158.3.579.2.462 Unknown [id number] 2.16.8 40.1.043227.3.579.2.462 Unknown [id number] 2.16.8 40.1.597959.3.579.2.462 Unknown [id number] 2.16.8 40.1.929048.3.579.2.462 Unknown [id number] 2.16.8 40.1.107981.3.579.2.462 Unknown [id number] 2.16.8 40.1.737862.3.579.2.462 Unknown [id number] 2.16.8 40.1.725020.3.579.2.462 Unknown [id number] 2.16.8 40.1.211829.3.579.2.462 Social History Date Type Detail Facility Start: 12-17-2016 End: 12-02-2024 Tobacco smoking status NHIS Former smoker [facility] Start: 12-17-2016 End: 10-09-2020 Cigarettes smoked current (pack per day) - Reported [facility] Work Phone: Start: 1945 Sex Assigned At Not on file [facility] Work Phone: Start: 12-17-2016 End: 10-09-2020 Tobacco use and exposure Never used [facility] Start: 12-17-2016 End: 01-10-2021 Alcohol intake Current non-drinker of alcohol (finding) [facility] Start: 03-10-2016 Tobacco Comment quit 25+ yrs ago [facility] Exposure to SARS-CoV -2 (event) Not sure [facility] Start: 08-01-2021 End: 12-21-2022 Tobacco smoking status NHIS Unknown if ever smoked [facility] Start: 01-12-2020 None [facility] Start: 01-12-2020 Spouse/ Signif icant Other [facility] Start: 11-18-2020 Non-smoker [facility] Start: 1945 Sex Assigned At Male [facility] Start: 07-13-2024 End: 08-08-2024 Sex Male (finding) [facility] Medical Equipment Procedure Code Equipment Code Equipment Origin al Text Equipment Identifier Dates Stent 3.50 X 23 [facility] Rx - [id number] FDA Start: 01-04-2015 ()[id number] [id number] FDA Start: 08-31-2022 ()[id number] FDA Start: 08-31-2022 ()[id number] [id number] FDA Start: 11-27-2024 ()[id number] [id number] FDA Start: 11-30-2024 ([id number] [id number] FDA Start: 11-30-2024 Goals Date Patient Goal Desired Activity /State Functional Status Date Assessment Result Facility 12-02-2024 Functional status Bedrest [facility] Work Phone: 11-28-2024 Functional status Ambulates [facility] Work Phone: 11-27-2024 [facility] Work Phone: 09-21-2022 Functional status Chair [facility] Work Phone: 09-20-2022 Functional status Assistive Ning lauro Rolling Walker [facility] Work Phone: 09-01-2022 Functional status Activity Ability Indepe ndent [facility] Work Phone: 08-31-2022 Functional status Ambulates [facility] Work Phone: Mental Status Date Assessment Result Facility 12-02-2024 Cognitive function Voice/Name [facility] Work Phone: 11-28-2024 Cognitive function Voice/Name [facility] Work Phone: 11-27-2024 [facility] Work Phone: 09-21-2022 Cognitive function Voice/Name [facility] Work Phone: 09-01-2022 Cognitive function Appropriate;Cooperativ e [facility] Work Phone: 11-16-2021 Cognitive function Voice/Name [facility] Work Phone: 06-10-2021 Cognitive function Level Of Cons ciousness Awake;Alert;Appropriate [facility] Work Phone: Clinical Notes 06-25-2020 to 12-02-2024 Note Date & Type Note Facility 12-02-2024 Consult note Note Date/Time December 02, 2024 12:23pm [facility] Medical Records Department [address] [place] [address] Consultation - Neurology 12/02/24 1207 MR#: [id number] Acct: [id number] Name: ERIBERTO RICO Rep #:[id number] 17 : 1945 79 From: Jamar Hooker PCP: Dr. Marycarmen Rodriguez, DO Status:ADM IN Location: [place] [address] Assessment and Plan: Neuro Assessment/Plan ERIBERTO RICO is a 79 M with cv risk factors and multiple prior admissions with left sided weakness with neg workup and there has been concern for conversion/functional/stress induced who presents for STEMI. After cath procedure he complained of left sided weakness and stroke alert was called. No lytics due to unclear lkw, multiple prior neg episodes and recent procedure. MRAneg. MRI brain shows a questionable dwi lesion in post right parietal lobe whichis super small and questionable and would not explain his symptoms. If truly there likely perioperative. His left sided weakness more likley to conversion/functional/stress reaction. Diagnosis: - Stress induced reaction Plan: - Cont asa, brillinta and statin per cards. Cont cv risk factor optimization. Nofurther recs. Please reachout for any questions or concerns. Stroke to sign off. HPI Consult Data Date of Consult: 12/02/24 HPI Narrative HPI Narrative: ERIBERTO RICO, is a 79 M with ckd, cv risk factors, TIAs?, concern for conversion disorder and cad who presented with chest pain. He apparently had a cath last week and found to have cad and underwent angioplasty. He came in 12/01/24 with chest pain and foudn to have a stemi and went for cath and found that artery had blocked off again and had to get stented. After wards he was doing okay but at some point he stated that his left side felt weak and numb butunclear when exactly it started after his cath. Stroke alert was called and NIH was 4 mostly for left leg weakness and numbness. No tnk as unclear lkw and recent procedure. CTH neg. No cta as low concern for lvo and beverly. He states thatthis has happened many times before. I reviewed his records and he has had theseepisodes of left sided weakness since 2019 from what I see. He has been thoroughly evaluated with multiple mris which were neg, spine mris and emg whichwere unrevealing. There was concern that these episodes with conversion/functional/stress induced. His MRAs are neg. His MRI does show a questionable incidental very very small incidental dwi lesion in the posterior right parietal lobe which would not cause patient symptoms. It is not in motor or sensory gyrus. Again very questionable that radiology may not call. If there is periopertive from cath procedure. Cont asa, brillinta and statin per cards. Cont cv risk factor optimization. No further recs. Please reachout for any questions or concerns. Stroke to sign off. [facility] Medical History (Updated 12/01/24 @ 09:[address] Nickie Danielson, DO) Anemia Diabetes mellitus Chronic kidney disease Shortness of breath Unstable angina Fatigue Syncope Left-sided weakness History of COVID-19 Presence of stent in coronary artery (~08/31/22) Dyslipidemia Coronary artery disease Angina pectoris Abnormal PFT [...] kidney disease, stage 3 Atherosclerotic heart disease andreafski coronary artery w/angina pectoris Type 2 diabetes mellitus without complications Hyperlipidemia Obesity Home Medications ?Medication ?Instructions ?Recorded ?Last Taken ?Type aspirin 81 mg tablet,delayed 81 mg PO DAILY@0800 healt h 01/21/17 10/11/23 History release maintenance mirtazapine 15 mg tablet (Remeron) 15 mg PO QHS sleep 09/21/18 10/11/23 History cyanocobalamin (vitamin B-12) 1,000 mcg PO DAILY vitam in ##0 06/01/19 10/11/23 History 1,000 mcg capsule magnesium oxide 400 mg (241.3 mg 800 mg PO DAILY SUPPL EMENT 08/01/21 10/11/23 History magnesium) tablet cetirizine 10 mg tablet 10 mg PO DAILY PRN Allergic 09/16/21 10/11/23 History Reaction cholecalciferol (vitamin D3) [address] 10/11/23 History mcg (1,000 unit) tablet fluoxetine 40 mg capsule 80 mg PO DAILY DEPRESSION 90 days 09/16/21 10/11/23 History #180 caps acetaminophen 325 mg tablet 650 mg PO Q6H PRN Pain 1-1 10/12/23 Unknown History glimepiride 4 mg tablet 4 mg PO QDAY diabetes Unknown History atorvastatin 40 mg tablet 40 mg PO QHS CHOLESTEROL #90 tabs 06/14/24 Unknown Rx clopidogrel 75 mg tablet [address] #90 tabs 0 06/14/24 Unknown Rx losartan 100 mg tablet 100 mg PO DAILY blood pressu re #90 06/14/24 Unknown Rx Held on 11/30/24. tabs Instructions: hold per patient nitroglycerin 0.4 mg sublingual 0.4 mg sublingual Q5-1 5M PRN CHEST 06/14/24 Unknown Rx tablet PAIN #25 tabs pantoprazole 40 mg tablet,delayed 40 mg PO DAILY GERD #90 tabs 06/14/24 Unknown Rx release potassium chloride 20 mEq 60 meq (3 x 20 mEq) PO BID 0 06/14/24 Unknown Rx tablet,extended release(part/cryst) supplement #180 ta bs spironolactone 50 mg tablet 50 mg PO DAILY diuretic #9 0 tabs 06/14/24 Unknown Rx amlodipine 5 mg tablet 5 mg PO QPM blood pressure 0 10/25/24 Unknown History isosorbide mononitrate 60 mg 60 mg PO BID heart #90 TA BLETS 10/25/24 Unknown Rx tablet,extended release 24 hr metformin 500 mg tablet 500 mg PO QDAY diabetes 10/02 09/24 Unknown History Held on 11/27/24. Instructions: Resume on 11/30/24. metolazone 2.5 mg tablet 2.5 mg PO QDAY diuretic 10/02 09/24 Unknown History metoprolol succinate 25 mg 25 mg PO DAILY blood pressu re #30 10/25/24 Unknown Rx tablet,extended release 24 hr tabs hydrocodone-acetaminophen 5-325mg 1 tab PO TID PRN jennifer n 11/22/24 11/27/24 History 5mg-325mg furosemide 80 mg tablet 80 mg PO DAILY #30 tabs 11/01 12/25 Unknown Rx Allergy/AdvReac Type Severity Reaction Status Date / Time No Known Allergies Allergy Verified 11/26/24 17:43 Family History Father Parkinsons disease Prostate cancer Mother Osteoporosis Surgical History Presence of coronary angioplasty implant and graft (11/27/24) History of tympanostomy tube placement History of percutaneous transluminal coronary angioplasty (08/18/18) History of herniorrhaphy Hx of cholecystectomy History of tonsillectomy History of prostatectomy Social History household members: spouse and none Smoking Status: Former smoker quit date: 05/03/98 pack-years: 50 how long ago did patient quit smokin years ago alcohol intake: never substance use type: does not use caffeine: Yes Type: coffee and tea Number of servings: 6 Vital Signs Vital Signs Vital Signs: 12/01/24 12:12 12/01/24 14:00 12/01/24 15:00 Temperature 97.0 F L Temperature Source Oral Pulse Rate 77 74 Pulse Strength Respiratory Rate 18 Respiratory Effort Non-Labored Short of Breath Respiratory Depth Normal Respiratory Pattern Normal Blood Pressure 101/69 Blood Pressure Mean 79 Blood Pressure Source Monitor Blood Pressure Position Semi-Fowlers Blood Pressure Location Left Arm Pulse Ox 99 Oxygen Delivery Method Room Air Nasal Cannula Oxygen Flow Rate (L/min) 2 12/01/24 17:10 12/01/24 19:20 12/01/24 19:30 Temperature 97.0 F L Temperature Source Temporal Pulse Rate 65 81 76 Pulse Strength Respiratory Rate 20 H 18 18 Respiratory Effort Respiratory Depth Respiratory Pattern Blood Pressure 104/66 120/77 136/82 H Blood Pressure Mean 78 91 100 Blood Pressure Source Monitor Blood Pressure Position Semi-Fowlers Blood Pressure Location Left Arm Pulse Ox 97 98 96 Oxygen Delivery Method Nasal Cannula Nasal Cannula Nasal Cannula Oxygen Flow Rate (L/min) 2 3 2 12/01/24 19:45 12/01/24 20:00 12/01/24 20:15 Temperature Temperature Source Pulse Rate 75 68 72 Pulse Strength Respiratory Rate 17 16 16 Respiratory Effort Respiratory Depth Respiratory Pattern Blood Pressure 122/77 H 109/71 117/71 Blood Pressure Mean 92 83 86 Blood Pressure Source Blood Pressure Position Blood Pressure Location Pulse Ox 96 98 98 Oxygen Delivery Method Nasal Cannula Nasal Cannula Nasal Cannula Oxygen Flow Rate (L/min) 2 2 2 12/01/24 20:35 12/01/24 20:35 12/01/24 20:35 Temperature 98 F Temperature Source Oral Pulse Rate 75 Pulse Strength Normal (2+) Respiratory Rate 18 Respiratory Effort Non-Labored Respiratory Depth Normal Respiratory Pattern Normal Blood Pressure 112/76 Blood Pressure Mean 88 Blood Pressure Source Monitor Blood Pressure Position Semi-Fowlers Blood Pressure Location Right Arm Pulse Ox 98 Oxygen Delivery Method Nasal Cannula Nasal Cannula Oxygen Flow Rate (L/min) 3 2 12/02/24 00:09 12/02/24 00:09 12/02/24 00:31 Temperature 98.0 F Temperature Source Oral Pulse Rate 62 69 Pulse Strength Respiratory Rate 19 H 18 Respiratory Effort Respiratory Depth Respiratory Pattern Blood Pressure 108/73 Blood Pressure Mean 84 Blood Pressure Source Monitor Blood Pressure Position Semi-Fowlers Blood Pressure Location Left Arm Pulse Ox 94 94 98 Oxygen Delivery Method Bi-pap CPAP Oxygen Flow Rate (L/min) 2 12/02/24 03:00 12/02/24 04:30 12/02/24 09:35 Temperature 98.5 F 98.5 F Temperature Source Oral Oral Pulse Rate 67 81 Pulse Strength Respiratory Rate 18 20 H Respiratory Effort Non-Labored Respiratory Depth Normal Respiratory Pattern Normal Blood Pressure 108/77 121/78 H Blood Pressure Mean 87 92 Blood Pressure Source Monitor Monitor Blood Pressure Position Semi-Fowlers Semi-Fowlers Blood Pressure Location Left Arm Left Arm Pulse Ox 98 99 Oxygen Delivery Method Nasal Cannula CPAP Nasal Cannula Oxygen Flow Rate (L/min) 2 3 12/02/24 10:00 12/02/24 10:00 12/02/24 10:00 Temperature 97.8 F Temperature Source Oral Pulse Rate 77 77 Pulse Strength Normal (2+) Respiratory Rate 18 Respiratory Effort Respiratory Depth Respiratory Pattern Blood Pressure 104/69 104/77 Blood Pressure Mean 86 Blood Pressure Source Monitor Blood Pressure Position Supine Blood Pressure Location Left Arm Pulse Ox 99 Oxygen Delivery Method Nasal Cannula Oxygen Flow Rate (L/min) 3 Weight Weight: 109.7 kg Body Mass Index (BMI) 35.6 EEG Results Procedure Details EEG Procedure Details: ERIBERTO RICO is a 79 year old M with a past medical history of , who presents for evaluation of Electroencephalogram on DATE at TIME Physical Exam Narrative Physical Exam: - General: NAD, pleasant, cooperative, well nourished, well developed - Head/Eyes: Atraumatic, normocephalic, clear cornea, normal sclera/conjunctive - Neuro: ? Mental Status: AAOX4 & following simple commands. ? Speech: Clear and fluent with good repetition, comprehension, & naming. No aphasia or dysarthria ? CN II: Visual kim are full to confrontation. ? CN III, IV, : EOMI, no gaze preference, no nystagmus, no ptosis ? CN V: Facial sensation is intact to light touch throughout. ? CN VII: Face is symmetric with normal eye closure and smile. ? CN VII: Hearing is grossly normal to conversational speech. ? Motor: Left leg drift to bed, mild left arm drift ? Sensation: Left side numbness ? Coordination: Normal FTN & HTS. No abn movements seen. Lab / Micro Data 12/02/24 07:19 12/02/24 07:19 Labs: Laboratory Results - last 24 hr 12/01/24 17:01: POC Glucose 153 H 12/01/24 18:21: Hgb 10.6 L, Hct 32.7 L 12/01/24 19:23: POC Glucose 203 H 12/01/24 20:58: POC Glucose 148 H 12/02/24 06:28: POC Glucose 129 H 12/02/24 07:19: WBC 11.2 H, RBC 3.52 L, Hgb 10.4 L, Hct 32.1 L, MCV 91.2, MCH 29.5, MCHC 32.4, RDW Std Deviation 47.4 H, RDW Coeff of Adrian 14.4, Plt Count 113 L, MPV 13.1 H, Immature Gran % (Auto) 0.700, Neut % (Auto) 78.9 H, Lymph % (Auto) 7.6 L, Vernon % (Auto) 12.0 H, Eos % (Auto) 0.7, Baso % (Auto) 0.1, Absolute Neuts (auto) 8.8 H, Absolute Lymphs (auto) 0.85, Nucleated RBC % 0, Sodium 133, Potassium 4.8, Chloride 99, Carbon Dioxide 20.6 L, Anion Gap 14, BUN50 H, Creatinine 2.93 H, Estim Creat Clear Calc 24.95 L, Est GFR (MDRD) Non-Af 21 L, BUN/Creatinine Ratio 17.2, Glucose 138 H, Calcium 9.3 Imaging Radiology Impression Echocardiogram 12/01/24 07:00 Interpretation Summary Normal left ventricular size. Mild left ventricular hypertrophy. Mildly reduced LVEF with estimated ejection fraction of 50%. There is basal to mid lateral wall akinesis. There is basal inferoseptal hypokinesis. There is basal inferior hypokinesis. Grade 1 diastolic dysfunction. Mildly increased right ventricular size. Preserved function. No hemodynamically significant valvular heart disease. Small anterior pericardial effusion with no hemodynamic significance. Epicardial fat. Ordering Physician: Jose Hay Referring Physician: Marycarmen Rodriguez Performed By: Treva Black, MONICACS, RVT Brain CT 12/01/24 19:30 IMPRESSION: 1. No acute intracranial abnormality. 2. Age-related senescent changes. Reading Location: [facility] [place] Medications Active Medications Active Medications: Current Medications Generic Name Dose Route Start Last Admin Trade Name Freq PRN Reason Stop Dose Admin Acetaminophen 650 mg 11/30/24 16:57 12/01/24 21:00 Acetaminophen 325 Mg Tablet PO 650 mg Q6H PRN Administration Pain 1-10/10 Hydrocodone Bitart/Acetaminophen 1 tablet 11/30/24 16:57 12/01/24 17:04 Hydrocodone Bitartrate/Apap 5/325 Tablet PO 1 tablet TID PRN Administration pain Albuterol Sulfate 2.5 mg 11/30/24 17:20 Albuterol 2.5 Mg/3 Ml Vial.Neb. INHALATION Q4H PRN SHORTNESS OF BREATH Alprazolam 0.5 mg 12/02/24 08:00 12/02/24 10:00 Alprazolam 0.5 Mg Tablet PO 0.5 mg X1 PRN Administration 30 min prior to MRI Aspirin 81 mg 12/01/24 08:00 12/02/24 10:00 Aspirin 81 Mg Tab.Chew PO 81 mg BREAKFAST SHARON Administration Atorvastatin Calcium 40 mg 11/30/24 22:00 12/01/24 20:59 Atorvastatin Calcium 40 Mg Tablet PO 40 mg QHS SHARON Administration Atropine Sulfate 0.5 mg 11/30/24 16:51 Atropine Sulfate 1 Mg/10 Ml Syringe IV UD PRN HR <50 bpm Cholecalciferol 25 mcg 12/01/24 10:00 12/02/24 11:24 Cholecalciferol (Vit D3) 25 Mcg Tablet (1,000 Units) PO 25 mcg DAILY SHARON Administration Cyanocobalamin 1,000 mcg 12/01/24 10:00 12/02/24 09:59 Cyanocobalamin 500 Mcg Tablet PO 1,000 mcg DAILY SHARON Administration Fluoxetine HCl 80 mg 12/01/24 10:00 12/02/24 10:01 Fluoxetine Hcl 40 Mg Capsule PO 80 mg DAILY SHARON Administration Furosemide 80 mg 12/01/24 10:00 Furosemide 80 Mg Tablet PO DAILY [facility] Protocol Glucagon 1 mg 11/30/24 17:07 Glucagon 1 Mg/Ml Syringe IM X1 PRN Hypoglycemia Protocol Hydralazine HCl 5 mg 12/01/24 20:19 Hydralazine 20 Mg/Ml Vial IV 12/02/24 20:19 Q30M PRN maintain BP parameters with HR <60 Dextrose 250 mls @ 0 mls/hr 11/30/24 17:07 Dextrose 10%-Water IV .Q0M PRN HYPOGLYCEMIA Protocol As Directed Sodium Chloride 250 mls @ 15 mls/hr 11/30/24 17:25 IV .[id number] PRN Saline Flush Sodium Chloride 250 mls @ 15 mls/hr 11/30/24 17:25 IV .[id number] PRN Additional IVPB Infusion Insulin Human Lispro 0 unit 11/30/24 22:00 12/02/24 06:30 Insulin Lispro 100 Unit/Ml Insuln.Pen SC Not Given ACHS SHARON Protocol Labetalol HCl 10 - 20 mg 12/01/24 20:19 Labetalol 20 Mg/4 Ml Vial IV 12/02/24 20:19 Q10M PRN PRN maintain BP parameters with HR >/=60 Loratadine 10 mg 12/02/24 10:00 Loratadine 10 Mg Tablet PO Q48 PRN ALLERGIES Magnesium Chloride 128 mg 12/01/24 10:00 12/02/24 09:59 Magnesium Chloride 64 Mg Delay Rel.Tablet PO 128 mg DAILY SHARON Administration Melatonin 3 mg 11/30/24 17:08 12/01/24 20:59 Melatonin 3 Mg Tablet PO 3 mg QHS PRN PRN Administration INSOMNIA Metolazone 2.5 mg 12/01/24 10:00 Metolazone 2.5 Mg Tablet PO DAILY SHARON Protocol Metoprolol Succinate 25 mg 12/01/24 10:00 12/02/24 10:00 Metoprolol(Xl)Succ 25 Mg Tablet PO 25 mg DAILY SHARON Administration Protocol Mirtazapine 15 mg 11/30/24 22:00 12/01/24 20:59 Mirtazapine 15 Mg Tablet PO 15 mg QHS SHARON Administration Nitroglycerin 0.4 mg 11/30/24 17:31 Nitroglycerin (Inpatient Use) 0.4 Mg Tab.Subl SL Q5M PRN CARDIAC/CHEST PAIN Nutritional Formula (Lactose Free) 120 ml 12/02/24 12:00 Glucerna Shake 120 Ml Liquid PO TIDCM SHARON Ondansetron HCl 4 mg 11/30/24 17:08 12/01/24 08:34 Ondansetron 4 Mg/2 Ml Vial IV 4 mg Q8H PRN PRN Administration NAUSEA/VOMITING Pantoprazole Sodium 40 mg 12/01/24 10:00 12/02/24 09:59 Pantoprazole Sodium 40 Mg Tablet PO 40 mg DAILY SHARON Administration Sodium Chloride 500 ml 11/30/24 16:51 0.9% Normal Saline 500 Ml Iv.Soln. IV BOLUS PRN VASO-VAGAL PROTOCOL Sodium Chloride 10 - 40 ml 11/30/24 17:25 11/30/24 19:52 0.9% Saline Lock 10 Ml Syringe IV 10 ml UD PRN Administration SALINE FLUSH Ticagrelor 90 mg 11/30/24 22:00 12/02/24 09:59 Ticagrelor 90 Mg Tablet PO 90 mg BID SHARON Administration NIHSS NIHSS Nursing Documentation NIHSS Nursing Documentation: NIHSS: Ischemic Stroke/TIA Start: 12/01/24 20:19 Text: For ICU Patients: NIH sroke scale at Status: Complete presentation and every 2 hours or with change in RN caregiver Freq: [id number] Protocol: Activity Type Activity Date Activity User E-sign Co-sign Detail Recorded Client Recorded Date Recorded By Document 12/01/24 20:15 [id number] 12/01/24 20:28 CD 12/01/24 20:15 NIH Stroke Scale [NIHSS] A score of 0 is normal or asymptomatic . Total possible score is 42. Inpatient: RN or Physician to activate a stroke alert for onset of new stroke symptoms or with NIHSS increase >/= 3 points. Following change in neurological status, NIHSS will be performed per physician order or more frequently PRN. -1a. Level of Consciousness 0 - Alert; keenly responsive -1b. LOC Questions 0 - Answers BOTH questions correctly -1c. LOC Commands 0 - Performs BOTH tasks correctly -2. Best Gaze 0 - Normal -3. Visual 0 - No visual loss -4. Facial Palsy 0 - Normal symmetrical movements -5a. Left Arm 0 - No drift; arm holds 90 ( or 45) degrees for full 10 seconds -5b. Right Arm 0 - No drift; arm holds 90 ( or 45) degrees for full 10 seconds -6a. Left Leg 3 - No effort against gravity ; leg falls to bed immediately -6b. Right Leg 0 - No drift; leg holds 30- degree position for full 5 seconds -7. Limb Ataxia 1 - Present in 1 limb -8. Sensory 1 - Mild-to- moderate sensory loss; -9. Best Language 0 - No aphasia; normal -10. Dysarthria 0 - Normal -11. Extinction and Inattention 0 - No abnormality -Total 5 Query Text:A score of 0 is normal or asymptomatic. Total possible score is 42 . ED: Notify Physician for NIHSS increase by > / = 3 points. Inpatient: RN or Physician to activate a stroke alert for NIHSS increase of > / = 3 points. Coma Scale [Assess] -Eye Opening Spontaneous -Motor Obeys Commands -Verbal Oriented [Total] -Coma Scale Total 15 NIHSS: Ischemic Stroke/TIA Start: 12/01/24 20:19 Text: For PCU Patients: NIH and Neuro Check every 4 Status: Active hours, PRN and with change in RN caregiver. Freq: [id number] Protocol: Activity Type Activity Date Activity User E-sign Co-sign Detail Recorded Client Recorded Date Recorded By Document 12/02/24 10:00 GRIS [id number] 12/02/24 10:20 TSTIKA 12/02/24 10:00 NIH Stroke Scale [NIHSS] A score of 0 is normal or asymptomatic . Total possible score is 42. Inpatient: RN or Physician to activate a stroke alert for onset of new stroke symptoms or with NIHSS increase >/= 3 points. Following change in neurological status, NIHSS will be performed per physician order or more frequently PRN. -1a. Level of Consciousness 0 - Alert; keenly responsive -1b. LOC Questions 0 - Answers BOTH questions correctly -1c. LOC Commands 0 - Performs BOTH tasks correctly -2. Best Gaze 0 - Normal -3. Visual 0 - No visual loss -4. Facial Palsy 0 - Normal symmetrical movements -5a. Left Arm 0 - No drift; arm holds 90 ( or 45) degrees for full 10 seconds -5b. Right Arm 0 - No drift; arm holds 90 ( or 45) degrees for full 10 seconds -6a. Left Leg 1 - Drift; leg falls by the end of 5- seconds, but does not hit bed -6b. Right Leg 0 - No drift; leg holds 30- degree position for full 5 seconds -7. Limb Ataxia 1 - Present in 1 limb -8. Sensory 1 - Mild-to- moderate sensory loss; -9. Best Language 0 - No aphasia; normal -10. Dysarthria 0 - Normal -11. Extinction and Inattention 0 - No abnormality -Total 3 Query Text:A score of 0 is normal or asymptomatic. Total possible score is 42 . ED: Notify Physician for NIHSS increase by > / = 3 points. Inpatient: RN or Physician to activate a stroke alert for NIHSS increase of > / = 3 points. Coma Scale [Assess] -Eye Opening Spontaneous -Motor Obeys Commands -Verbal Oriented [Total] -Coma Scale Total 15 12/02/24 1223 <Electronically signed by Jamar Tapia MD> Cosigner Signature (if applicable): CC: Dr. Jose Hay MD; Dr. Marycarmen Rodriguez, DO~ Signed [facility] Work Phone: 1(597) 820-815708-02-2025 Hospital Discharge instructionsAdditional Instructions 1. It is very important to not miss any doses of your ticagrelor (Brilinta) and aspirin. Please take these as prescribed with no missed doses. If you miss doses you could clot off your stents. Date of Discharge: 12/02/24[facility] Work Phone: 1(103) 372-397708-01-2025 Progress note Author Abraham Ridley [facility] Note Date/Time December 01, 2024 8:2 6pm [facility] Medical Records Department [address] [place] [address] Progress Note - Hospitalist 12/01/242020 MR#: [id number] Acct: [id number] Name: ERIBERTO RICO Rep #:[id number] : 1945 79 From: Abraham inman DO PCP: Dr. Marycarmen Rodriguez, Status:ADM IN Location: [place] [address] Hospitalist Note Stroke alert called around 7 PM. Last known well 6:55 PM. Patient reported to [facility] that he had left facial numbness and left leg weakness. Nurse confirmed left leg weakness worse than right as well as left-sided sensation changes, so stroke alert was called. I saw the patient at bedside a few minutes later. He was normotensive and otherwise hemodynamically stable. He was sitting back in bed and conversing normally with me. Stated that he has had several TIAs in thepast and has had similar symptoms with these TIAs including left leg weakness and left facial numbness/tingling. Was evaluated by teleneurology and imaging after CT brain was done. CT brain was unremarkable. Neurology evaluated the patient and given his recent STEMI yesterday with left heart cath procedure, patient is not a candidate for TNK. Also noted that symptoms are not debilitating so would not recommend TNK regardless. Recommended obtaining MRI brain and MRA head/neck given that CTA cannot be obtained due to kidney function. MRI orders placed. Other orders placed per stroke protocol order set. Will continue to monitor the patient closely. 12/01/242025 <Electronically signed by Abraham Ridley DO> Cosigner Signature (if applicable): CC: ~ Signed [facility] Work Phone: [phone] 634-665808-01-2025 Radiology Diagnostic study [facility]08-01-2025 Progress note Author Nickie Danielson [facility] Note Date/Time December 01, 2024 3:5 0pm [facility] Medical Records Department [address] [place] [address] Progress Note - Hospitalist 12/01/24712 MR#: [id number] Acct: [id number] Name: ERIBERTO RICO Rep #:[id number] : 1945 79 From: Nickie Danielson DO PCP: Dr. Marycarmen Rodriguez, DO Status:ADM IN Location: [place] [address] Reason for Visit Chief Complaint: STEMI Subjective Subjective No issues overnight. No CP. Did have some bright red blood per rectum with bowel movement but remains hemodynamically stable repeat hemoglobin is pending. States he intermittently gets these bouts where he feels short of breath. Per discussion with nursing he is not hypoxic at all during these events. I question if he is anxious and he states he does not feel anxious when it happens. Will continue to monitor. Objective Data Objective Data Vital Signs: Vital Signs Temp Pulse Resp BP Pulse Ox O2 Del Method O2 Flow Rate 98 F 70 16 111/64 98 Nasal Cannula 2 12/01/24 04:00 12/01/24 07:00 12/01/24 07:00 12/01/24 07:00 12/01/24 07:00 12/01/24 07:00 12/01/24 07:00 Oxygen Flow Rate (L/min) 2 Oxygen Delivery Method Nasal Cannula Weight: 110.54 kg Body Mass Index (BMI) 36.1 Intake & Output: Intake and Output for Last 24 Hours 11/29/24 11/30/24 12/01/24 23:59 23:59 23:59 Intake Total 1000 / 1000 Balance 1000 / 1000 Lab / Micro Data 12/01/24 04:05 12/01/24 04:05 Labs: Laboratory Results - last 24 hr 11/30/24 14:33: Activated Clotting Time 176 H 11/30/24 15:25: WBC 19.2 H, RBC 4.26 L, Hgb 12.5 L, Hct 39.6 L, MCV 93.0, MCH 29.3, MCHC 31.6 L, RDW Std Deviation 45.9 H, RDW Coeff of Adrian 13.5, Plt Count 168, MPV 13.7 H, Immature Gran % (Auto) 0.700, Neut % (Auto) 80.9 H, Lymph % (Auto) 10.1 L, Vernon % (Auto) 7.7, Eos % (Auto) 0.4, Baso % (Auto) 0.2, Absolute Neuts (auto) 15.5 H, Absolute Lymphs (auto) 1.93, Nucleated RBC % 0.1, PT 16.1 H, INR 1.3, APTT 112.9 H*, Sodium 135, Potassium 4.4, Chloride 98, Carbon Csqiszc58.3 L, Anion Gap 19 H, BUN 45 H, Creatinine 3.10 H, Est GFR (MDRD) Non-Af 20 L,BUN/Creatinine Ratio 14.4, Glucose 328 H, Hemoglobin A1c 7.0 H, Calcium 9.5, Troponin T High Sens 61 H* D 11/30/24 15:30: Activated Clotting Time 187 H 11/30/24 21:11: POC Glucose 167 H 12/01/24 04:05: WBC 14.6 H, RBC 3.68 L, Hgb 10.8 L, Hct 33.2 L, MCV 90.2, MCH 29.3, MCHC 32.5, RDW Std Deviation 45.8 H, RDW Coeff of Adrian 14.0, Plt Count 142 L, MPV 12.7 H, Sodium 134, Potassium 5.0, Chloride 100, Carbon Dioxide 20.3 L, Anion Gap 14, BUN 45 H, Creatinine 3.16 H, Estim Creat Clear Calc 23.23 L, Est GFR (MDRD) Non-Af 19 L, BUN/Creatinine Ratio 14.2, Glucose 157 H, Calcium 8.7, Total Bilirubin 1.07, AST 497 H, ALT 77 H, Alkaline Phosphatase 82, Total Protein 6.0, Albumin 3.7, Globulin 2.4, Albumin/Globulin Ratio 1.5 Radiography Diagnostic Testing: Radiology Impression Chest X-Ray 11/30/24 18:50 IMPRESSION: Cardiomegaly. No evidence of acute pulmonary disease. Reading Location: [facility] Physical Exam Const alert, oriented x3, no apparent distress and well nourished; Negative for average body habitus or healthy appearing Constitutional Narrative: Elderly, white male, sitting up in bed, appears comfortable, nontoxic HEENT head/scalp atraumatic and moist oral mucous membranes HEENT Narrative: Mallampati 3-4 Head and Scalp: normocephalic Resp normal respiratory effort, no retractions, no use of accessory muscles and clearto auscultation bilaterally Auscultation: Negative for crackles, rhonchi or wheezes Cardio regular rate, regular rhythm, S1 normal heart sound, S2 normal heart sound, no murmurs, no rub, no gallops and no clicks GI normal to inspection, nondistended, normoactive bowel sounds, soft to palpation and non-tender Extremity no clubbing, cyanosis or edema Extremity Narrative: 2+ pedal and radial pulses Neuro oriented x3, moves all extremities and no focal motor deficits Speech: speech normal Psych Psych Narrative: Affect is slightly flat but patient interacts appropriately Assessment & Plan Assessment/Plan (1) ST elevation (STEMI) myocardial infarction: (2) Acute kidney injury superimposed on stage 4 chronic kidney disease: (3) Leukocytosis: PLAN: Plan STEMI - Emergent cath yesterday showed subacute stent thrombosis in the proximal rightcoronary artery with percutaneous revascularization and PCI with KENDALL to proximalRCA - Thrombus embolized to the right posterior lateral ventricle branch which was treated with balloon angioplasty and placement of 2 drug-eluting stents withTIMI flow 3 restored following - Mild persistent ST elevation following cardiac catheterization - Transitioned from Plavix to Brilinta - Continue aspirin - Continue statin - Hold losartan due to renal dysfunction - Amlodipine 5 mg daily started - Continue isosorbide mononitrate - Continue metoprolol - Echocardiogram done and shows mild left ventricular hypertrophy with mildly reduced left ventricular ejection fraction of 50% with basal and mid lateral wall akinesis and basal inferoseptal hypokinesis as well as basal inferior hypokinesis and grade 1 diastolic dysfunction, mild RV dilation with preserved function, no valvular abnormalities and a small epicardial fat pad Leukocytosis - Suspect reactive - Repeat in a.m. Thrombocytopenia - Mild - Seems like this has been more of an acute change - Repeat lab in a.m. and would recommend outpatient follow-up to assess for stabilization if not further workup Rectal bleeding - Highly suspect hemorrhoidal based on report - Will repeat hemoglobin 6 hours after event to ensure stability with the with the platelet therapy BEVERLY on CKD stage IV - Baseline renal function appears to run between 2 and 2.5 - Currently 3.16 but seems to be stabilizing - Patient had 2 cardiac catheterizations requiring contrast this week so could be some contrast-induced nephropathy - Hold nephrotoxins including Aldactone, metolazone, Lasix, and losartan DM-2 - Hemoglobin A1c is 7.0 - Will hold glimepiride and metformin while hospitalized - SSI - Accu-Cheks as ordered - Cardiac/carb controlled diet CAD/essential hypertension/hyperlipidemia - continue aspirin and transition to Brilinta - Continue metoprolol - continue isosorbide mononitrate - start amlodipine per cardiology - Discontinue losartan due to renal function at baseline GERD Continue home PPI Chronic pain syndrome - Continue home pain medication Anxiety/depression/insomnia - Continue fluoxetine - Continue home mirtazapine DVT prophylaxis - Continue subcu heparin Charges/Coding Visit Charges Inpatient E&M: 86934 [facility] L2 12/01/24 9111 <Electronically signed by Nickie Danielson DO> Cosigner Signature (if applicable): CC: ~ Signed [facility] Work Phone: 1(620) 681-447108-01-2025 Progress note Author Marcin Araujo [facility] Note Date/Time December 01, 2024 7:3 7am [facility] Medical Records Department [address] [place] [address] Progress Note - Cardiology 12/01/24 0734 MR#: [id number] Acct: [id number] Name: ERIBERTO RICO Rep #:[id number] : 1945 79 From: Marcin Araujo MD PCP: Dr. Marycarmen Rodriguez DO Status:ADM IN Location: ICU CVICU20 3-1 Subjective Subjective Patient seen and evaluated. Doing better this morning. Objective Data Vital Signs: Vital Signs Temp Pulse Resp BP Pulse Ox O2 Del Method O2 Flow Rate 98 F 70 16 111/64 100 Nasal Cannula 1 12/01/24 04:00 12/01/24 07:00 12/01/24 07:00 12/01/24 07:00 12/01/24 07:32 12/01/24 07:32 12/01/24 07:32 Oxygen Flow Rate (L/min) 1 Oxygen Delivery Method Nasal Cannula Weight: 243 lb 11.2 oz Body Mass Index (BMI) 36.1 Intake & Output: Intake and Output for Last 24 Hours 11/29/24 11/30/24 12/01/24 23:59 23:59 23:59 Intake Total 1000 / 1000 Balance 1000 / 1000 Lab / Micro Data 12/01/24 04:05 12/01/24 04:05 Labs: Laboratory Results - last 24 hr 11/30/24 14:33: Activated Clotting Time 176 H 11/30/24 15:25: WBC 19.2 H, RBC 4.26 L, Hgb 12.5 L, Hct 39.6 L, MCV 93.0, MCH 29.3, MCHC 31.6 L, RDW Std Deviation 45.9 H, RDW Coeff of Adrian 13.5, Plt Count 168, MPV 13.7 H, Immature Gran % (Auto) 0.700, Neut % (Auto) 80.9 H, Lymph % (Auto) 10.1 L, Vernon % (Auto) 7.7, Eos % (Auto) 0.4, Baso % (Auto) 0.2, Absolute Neuts (auto) 15.5 H, Absolute Lymphs (auto) 1.93, Nucleated RBC % 0.1, PT 16.1 H, INR 1.3, APTT 112.9 H*, Sodium 135, Potassium 4.4, Chloride 98, Carbon Mahqndr29.3 L, Anion Gap 19 H, BUN 45 H, Creatinine 3.10 H, Est GFR (MDRD) Non-Af 20 L,BUN/Creatinine Ratio 14.4, Glucose 328 H, Hemoglobin A1c 7.0 H, Calcium 9.5, Troponin T High Sens 61 H* D 11/30/24 15:30: Activated Clotting Time 187 H 11/30/24 21:11: POC Glucose 167 H 12/01/24 04:05: WBC 14.6 H, RBC 3.68 L, Hgb 10.8 L, Hct 33.2 L, MCV 90.2, MCH 29.3, MCHC 32.5, RDW Std Deviation 45.8 H, RDW Coeff of Adrian 14.0, Plt Count 142 L, MPV 12.7 H, Sodium 134, Potassium 5.0, Chloride 100, Carbon Dioxide 20.3 L, Anion Gap 14, BUN 45 H, Creatinine 3.16 H, Estim Creat Clear Calc 23.23 L, Est GFR (MDRD) Non-Af 19 L, BUN/Creatinine Ratio 14.2, Glucose 157 H, Calcium 8.7, Total Bilirubin 1.07, AST 497 H, ALT 77 H, Alkaline Phosphatase 82, Total Protein 6.0, Albumin 3.7, Globulin 2.4, Albumin/Globulin Ratio 1.5 Cardiology Labs/Tests 11/30/24 15:25: WBC 19.2 H, RBC 4.26 L, Hgb 12.5 L, Hct 39.6 L, MCV 93.0, MCH 29.3, MCHC 31.6 L, Plt Count 168, MPV 13.7 H, Immature Gran % (Auto) 0.700, Neut% (Auto) 80.9 H, Lymph % (Auto) 10.1 L, Vernon % (Auto) 7.7, Eos % (Auto) 0.4, Baso % (Auto) 0.2, Absolute Neuts (auto) 15.5 H, Nucleated RBC % 0.1, PT 16.1 H,INR 1.3, APTT 112.9 H*, Sodium 135, Potassium 4.4, Chloride 98, Carbon Dioxide 18.3 L, Anion Gap 19 H, BUN 45 H, Creatinine 3.10 H, Est GFR (MDRD) Non-Af 20 L,BUN/Creatinine Ratio 14.4, Glucose 328 H, Hemoglobin A1c 7.0 H, Calcium 9.5 12/01/24 04:05: WBC 14.6 H, RBC 3.68 L, Hgb 10.8 L, Hct 33.2 L, MCV 90.2, MCH 29.3, MCHC 32.5, Plt Count 142 L, MPV 12.7 H, Sodium 134, Potassium 5.0, Chloride 100, Carbon Dioxide 20.3 L, Anion Gap 14, BUN 45 H, Creatinine 3.16 H, Est GFR (MDRD) Non-Af 19 L, BUN/Creatinine Ratio 14.2, Glucose 157 H, Calcium 8.7, Total Bilirubin 1.07 Rhythm: EKG: ECHO: Stress Test: Cardiac Cath: PCI: CT Surgery: Holter monitor: EPS: PPM: CXR: Chest CT Scan: Radiography Diagnostic Testing: Radiology Impression Chest X-Ray 11/30/24 18:50 IMPRESSION: Cardiomegaly. No evidence of acute pulmonary disease. Reading Location: [facility] Physical Exam Const alert, oriented x3 and no apparent distress Constitutional Narrative: Elderly male, class II obesity, mildly fatigued appearing but otherwise sitting back comfortably in bed, conversing normally, in no acute distress. General Appearance: cooperative and comfortable HEENT normocephalic, head/scalp atraumatic, hearing grossly normal bilaterally, nasal mucous membranes and turbinates normal and moist oral mucous membranes Eyes PERRL, EOMs intact bilaterally and conjunctivae normal Neck full ROM Chest inspection of chest normal Resp normal respiratory effort, normal air movement, no use of accessory muscles and clear to auscultation bilaterally Resp Narrative: Breathing comfortably on room air at rest. Mildly diminished breath sounds in lung bases but otherwise no wheezing or crackles noted. Cardio regular rate, regular rhythm, no murmurs and peripheral pulses 2+ throughout GI normal to inspection, nondistended, normoactive bowel sounds, soft to palpation,non-tender and non-distended Back/Spine normal ROM Extremity normal to inspection, full ROM and no pedal edema Skin no rashes or lesions noted Psych mental status grossly normal Assessment & Plan Assessment/Plan (1) ST elevation (STEMI) myocardial infarction: PLAN: Emergent coronary angiography revealed subacute stent thrombosis of the proximal right coronary artery. Emergent percutaneous revascularization with balloon angioplasty to the previously deployed stent to the proximal RCA. Thrombus embolization to the right posterior lateral ventricular branch was treated with balloon angioplasty and placement of 2 drug-eluting stents. DEXTER-3flow was restored. This morning he is doing well. He does have residual ST elevation present though. Will continue ticagrelor Continue aspirin Can be transferred to the progressive care unit (2) Essential hypertension: PLAN: Due to kidney dysfunction we will discontinue losartan and add amlodipine 5 mg a day. (3) Chronic kidney disease: PLAN: Will continue to monitor creatinine (4) Dyslipidemia: PLAN: High intensity statin with atorvastatin. 12/01/24 0737 <Electronically signed by Marcin Araujo MD> Cosigner Signature (if applicable): CC: ~ Signed [facility] Work Phone: [phone]) [phone] Discharge summary Author Isael Bernabe [facility] Note Date/Time November 30, 2024 9:35 pm [facility] Medical Records Department [address] [place] [address] Emergency Department Summary 11/30/24 MR#: [id number] Acct: [id number] Name: ERIBERTO RICO Rep #:[id number] : 1945 79 From: Isael Bernabe MD PCP: Dr. Marycarmen Rodriguez, DO Status:ADM IN Location: ICU CVICU20 3-1 HPI History of Present Illness Chief Complaint: Chest Pain Narrative Narrative: 79-year-old male presents via EMS as a STEMI. Prehospital STEMI called from EKGthat showed 3 to [address] elevation with reciprocal changes/ST depression. Patient relates history that at around 1230 this afternoon, 3 hours ago, he had nausea and vomiting, left arm pain and numbness, and chest pains. Of note, he had been seen in the emergency department previously/recently where he had chestpains that resolved. He was supposed to have heart catheterization the following day. As his enzymes were negative, he was discharged to have his heart catheterization performed the following day by Dr. Hay. His reports that while he had his heart catheterization performed, they were having difficulty stenting the area. She states that they were told that if he had future problems, that he might require bypass surgery. In discussion with EMS over the telephone, after EKG was sent, they administeredaspirin, Brilinta, and heparin. [facility] Medical History Diabetes mellitus Chronic kidney disease Shortness of breath Unstable angina Fatigue Syncope Left-sided weakness History of COVID-19 Presence of stent in coronary artery (~08/31/22) Dyslipidemia Coronary artery disease Angina pectoris Abnormal PFT [...] kidney disease, stage 3 Atherosclerotic heart disease andreafski coronary artery w/angina pectoris Type 2 diabetes mellitus without complications Hyperlipidemia Obesity Home Medications ?Medication ?Instructions ?Recorded ?Last Taken ?Type aspirin 81 mg tablet,delayed 81 mg PO DAILY@0800 healt h 01/21/17 10/11/23 History release maintenance mirtazapine 15 mg tablet (Remeron) 15 mg PO QHS sleep 09/21/18 10/11/23 History cyanocobalamin (vitamin B-12) 1,000 mcg PO DAILY vitam in ##0 06/01/19 10/11/23 History 1,000 mcg capsule magnesium oxide 400 mg (241.3 mg 800 mg PO DAILY SUPPL EMENT 08/01/21 10/11/23 History magnesium) tablet cetirizine 10 mg tablet 10 mg PO DAILY PRN Allergic 09/16/21 10/11/23 History Reaction cholecalciferol (vitamin D3) [address] 10/11/23 History mcg (1,000 unit) tablet fluoxetine 40 mg capsule 80 mg PO DAILY DEPRESSION 90 days 09/16/21 10/11/23 History #180 caps acetaminophen 325 mg tablet 650 mg PO Q6H PRN Pain 1-1 10/12/23 Unknown History glimepiride 4 mg tablet 4 mg PO QDAY diabetes Unknown History atorvastatin 40 mg tablet 40 mg PO QHS CHOLESTEROL #90 tabs 06/14/24 Unknown Rx clopidogrel 75 mg tablet [address] #90 tabs 0 06/14/24 Unknown Rx losartan 100 mg tablet 100 mg PO DAILY blood pressu re #90 06/14/24 Unknown Rx Held on 11/30/24. tabs Instructions: hold per patient nitroglycerin 0.4 mg sublingual 0.4 mg sublingual Q5-1 5M PRN CHEST 06/14/24 Unknown Rx tablet PAIN #25 tabs pantoprazole 40 mg tablet,delayed 40 mg PO DAILY GERD #90 tabs 06/14/24 Unknown Rx release potassium chloride 20 mEq 60 meq (3 x 20 mEq) PO BID 0 06/14/24 Unknown Rx tablet,extended release(part/cryst) supplement #180 ta bs spironolactone 50 mg tablet 50 mg PO DAILY diuretic #9 0 tabs 06/14/24 Unknown Rx amlodipine 5 mg tablet 5 mg PO QPM blood pressure 0 10/25/24 Unknown History isosorbide mononitrate 60 mg 60 mg PO BID heart #90 TA BLETS 10/25/24 Unknown Rx tablet,extended release 24 hr metformin 500 mg tablet 500 mg PO QDAY diabetes 10/02 09/24 Unknown History Held on 11/27/24. Instructions: Resume on 11/30/24. metolazone 2.5 mg tablet 2.5 mg PO QDAY diuretic 10/02 09/24 Unknown History metoprolol succinate 25 mg 25 mg PO DAILY blood pressu re #30 10/25/24 Unknown Rx tablet,extended release 24 hr tabs hydrocodone-acetaminophen 5-325mg 1 tab PO TID PRN jennifer n 11/22/24 11/27/24 History 5mg-325mg furosemide 80 mg tablet 80 mg PO DAILY #30 tabs 11/01 12/25 Unknown Rx Allergy/AdvReac Type Severity Reaction Status Date / Time No Known Allergies Allergy Verified 11/26/24 17:43 Family History Father Parkinsons disease Prostate cancer Mother Osteoporosis Surgical History Presence of coronary angioplasty implant and graft (11/27/24) History of tympanostomy tube placement History of percutaneous transluminal coronary angioplasty (08/18/18) History of herniorrhaphy Hx of cholecystectomy History of tonsillectomy History of prostatectomy Social History household members: spouse and none Smoking Status: Former smoker quit date: 05/03/98 pack-years: 50 how long ago did patient quit smokin years ago alcohol intake: never substance use type: does not use caffeine: Yes Type: coffee and tea Number of servings: 6 ROS ROS ED ROS Narrative Review of systems positive for chest pain, left arm pain and numbness, nausea and vomiting. Mild shortness of breath. No exacerbating or alleviating factors. EXAM Physical Exam Narrative Exam Narrative: Cardiovascular examination reveals regular rate and rhythm. Lungs clear to auscultation bilaterally. Abdomen soft, nontender with positive bowel sounds. Awake, alert, oriented. Const Vital Signs: 11/30/24 15:45 Blood Pressure 146/70 H MDM MDM MDM Narrative Medical decision making narrative: No feel differential diagnosis is applicable as prehospital STEMI has been called. Patient was met in the ambulance bay as reportedly EMS was 30 minutes out previously. Patient was discussed with Dr. Hay. He had already received aspirin Brilinta and heparin. Patient taken directly to the catheterization lab. Also, patient discussed with Dr. Ridley. I reviewed his laboratory work that was requested by the Clinical Research Assistant. Does not have elevation of his white count at 19.2 with hemoglobin 12.5, hematocrit 39.6,APTT 112.9 but he did receive heparin per squad. High-sensitivity troponin was 61, glucose elevated at 328 with anion gap elevated 19. The patient was admitted to the ICU status post heart catheterization. Patient went directly tothe catheterization lab in stable condition. History & Record Review Discussion w/independent historian: Patient and Family Lab Data Attestation: I reviewed the patient's lab results. Labs: Laboratory Results - last 24 hr 11/30/24 11/30/24 11/30/24 14:33 15:25 15:30 WBC 19.2 H RBC 4.26 L Hgb 12.5 L Hct 39.6 L MCV 93.0 MCH 29.3 MCHC 31.6 L RDW Std Deviation 45.9 H RDW Coeff of Adrian 13.5 Plt Count 168 MPV 13.7 H Immature Gran % (Auto) 0.700 Neut % (Auto) 80.9 H Lymph % (Auto) 10.1 L Vernon % (Auto) 7.7 Eos % (Auto) 0.4 Baso % (Auto) 0.2 Absolute Neuts (auto) 15.5 H Absolute Lymphs (auto) 1.93 Nucleated RBC % 0.1 PT 16.1 H INR 1.3 APTT 112.9 H* Activated Clotting Time 176 H 187 H Sodium 135 Potassium 4.4 Chloride 98 Carbon Dioxide 18.3 L Anion Gap 19 H BUN 45 H Creatinine 3.10 H Est GFR (MDRD) Non-Af 20 L BUN/Creatinine Ratio 14.4 Glucose 328 H Calcium 9.5 Troponin T High Sens 61 H* D Discharge Plan Dx/Rx/DC Orders Clinical Impression: Chest pain, Chronic kidney disease, stage 3, ST elevation (STEMI) myocardial infarction Disposition Disposition: Acute Care [facility] Discharge Date/Time: 11/30/24 15:21 What to do if you have Problems For any increased pain, shortness of breath, bleeding, nausea or vomiting, chestpain, or any unexpected problems, contact your Primary Care Provider. Call [facility] ([phone]) or report to the closest Emergency Room. Call 911 if necessary. 11/30/242134 <Electronically signed by Isael Bernabe MD> Cosigner Signature (if applicable): CC: Dr. Marycarmen Rodriguez, ~ Signed [facility] Work Phone: [phone]) 295-436207-31-2025 Progress note Author Isael Bernabe [facility] Note Date/Time November 30, 2024 9:33 pm [facility] Medical Records Department [address] [place] [address] Quality Report 11/30/241604 MR#: [id number] Acct: [id number] Name: ERIBERTO RICO Rep #:[id number] : 1945 79 From: Isael Bernabe MD PCP: Dr. Marycarmen Rodriguez, Status:ADM IN Y Location: ICU CVICU20 3-1 STEMI STEMI ED Door Time / Other REG STEMI EKG Time (1) STEMI (ST elevation myocardial infarction): Acute 11/30/24 15:17 Balloon/Aspiration Date-Time Date of Balloon/Aspiration:: 11/30/24 Time of Balloon/Aspiration:: 15:37 11/30/242132 <Electronically signed by Isael Bernabe MD> Date _ Isael Bernabe MD 11/30/241605 <Electronically signed by Donald Bill > Cosigner Signature (if applicable): Date Donald Bill CC: ~ Signed [facility] Work Phone: [phone]) 352-481907-31-2025 History and physical note Author Abraham Ridley [facility] Note Date/Time November 30, 2024 9:30 pm [facility] Medical Records Department [address] [place] [address] H&P Exam - Hospitalist 11/30/24 1705 MR#: [id number] Acct: [id number] Name: ERIBERTO RICO Rep #:[id number] : 1945 79 From: Abraham inman DO PCP: Dr. Marycarmen Rodriguez, DO Status:ADM IN Location: ICU CVICU20 3-1 HPI - General General Date of Admission: 11/30/24 Date of Service: 11/30/24 Chief Complaint: STEMI HPI Narrative ERIBERTO RICO, is a 79 M who presented to [facility] on 11/30/2024 as a STEMI alert. Follows with [facility] cardiology with complex CAD history, see office note from 11/22 for further details. In short, initially stenting x 2 done to the RCA in 2005. 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 Had recurrent chest pain in October and stress test on 11/10 showed mild sriram- infarct ischemia. Left heart cath on 11/27 showed severe in-stent restenosis of a heavily calcified proximal RCA; percutaneous intervention was performed with shockwave intracoronary lithotripsyand a drug-eluting stent. Left circumflex stent was patent. Patient then presented today with acute chest discomfort with nausea and vomiting. EKG was consistent with acute inferior STEMI. He was taken emergently to the Clinical Research Assistant and coronary angiography revealed a subacute stent thrombosis of the proximal RCA. Had emergent percutaneous revascularization with balloon angioplasty to the previously deployed stent to the proximal RCA. Had thrombus embolization tothe right posterior lateral ventricular branch that was treated with balloon angioplasty and placement of 2 new drug-eluting stents as well. Post-cath, patient was taken to the ICU for further management. I saw the patient in the ICU shortly after he arrived there, several point members were present. Patientwas sitting back fairly comfortably in bed, conversing normally and in no acute distress. He did report mild residual left-sided chest pain, much improved fromearlier today. Denied any radiation of the pain. He was hemodynamically stableon room air. No other acute concerns currently. [facility] Medical History Diabetes mellitus Chronic kidney disease Shortness of breath Unstable angina Fatigue Syncope Left-sided weakness History of COVID-19 Presence of stent in coronary artery (~08/31/22) Dyslipidemia Coronary artery disease Angina pectoris Abnormal PFT [...] kidney disease, stage 3 Atherosclerotic heart disease andreafski coronary artery w/angina pectoris Type 2 diabetes mellitus without complications Hyperlipidemia Obesity Home Medications ?Medication ?Instructions ?Recorded ?Last Taken ?Type aspirin 81 mg tablet,delayed 81 mg PO DAILY@0800 healt h 01/21/17 10/11/23 History release maintenance mirtazapine 15 mg tablet (Remeron) 15 mg PO QHS sleep 09/21/18 10/11/23 History cyanocobalamin (vitamin B-12) 1,000 mcg PO DAILY vitam in ##0 06/01/19 10/11/23 History 1,000 mcg capsule magnesium oxide 400 mg (241.3 mg 800 mg PO DAILY SUPPL EMENT 08/01/21 10/11/23 History magnesium) tablet cetirizine 10 mg tablet 10 mg PO DAILY PRN Allergic 09/16/21 10/11/23 History Reaction cholecalciferol (vitamin D3) [address] 10/11/23 History mcg (1,000 unit) tablet fluoxetine 40 mg capsule 80 mg PO DAILY DEPRESSION 90 days 09/16/21 10/11/23 History #180 caps acetaminophen 325 mg tablet 650 mg PO Q6H PRN Pain 1-1 10/12/23 Unknown History glimepiride 4 mg tablet 4 mg PO QDAY diabetes Unknown History atorvastatin 40 mg tablet 40 mg PO QHS CHOLESTEROL #90 tabs 06/14/24 Unknown Rx clopidogrel 75 mg tablet [address] #90 tabs 0 06/14/24 Unknown Rx losartan 100 mg tablet 100 mg PO DAILY blood pressu re #90 06/14/24 Unknown Rx Held on 11/30/24. tabs Instructions: hold per patient nitroglycerin 0.4 mg sublingual 0.4 mg sublingual Q5-1 5M PRN CHEST 06/14/24 Unknown Rx tablet PAIN #25 tabs pantoprazole 40 mg tablet,delayed 40 mg PO DAILY GERD #90 tabs 06/14/24 Unknown Rx release potassium chloride 20 mEq 60 meq (3 x 20 mEq) PO BID 0 06/14/24 Unknown Rx tablet,extended release(part/cryst) supplement #180 ta bs spironolactone 50 mg tablet 50 mg PO DAILY diuretic #9 0 tabs 06/14/24 Unknown Rx amlodipine 5 mg tablet 5 mg PO QPM blood pressure 0 10/25/24 Unknown History isosorbide mononitrate 60 mg 60 mg PO BID heart #90 TA BLETS 10/25/24 Unknown Rx tablet,extended release 24 hr metformin 500 mg tablet 500 mg PO QDAY diabetes 10/02 09/24 Unknown History Held on 11/27/24. Instructions: Resume on 11/30/24. metolazone 2.5 mg tablet 2.5 mg PO QDAY diuretic 10/02 09/24 Unknown History metoprolol succinate 25 mg 25 mg PO DAILY blood pressu re #30 10/25/24 Unknown Rx tablet,extended release 24 hr tabs hydrocodone-acetaminophen 5-325mg 1 tab PO TID PRN jennifer n 11/22/24 11/27/24 History 5mg-325mg furosemide 80 mg tablet 80 mg PO DAILY #30 tabs 11/01 12/25 Unknown Rx Allergy/AdvReac Type Severity Reaction Status Date / Time No Known Allergies Allergy Verified 11/26/24 17:43 Family History Father Parkinsons disease Prostate cancer Mother Osteoporosis Surgical History Presence of coronary angioplasty implant and graft (11/27/24) History of tympanostomy tube placement History of percutaneous transluminal coronary angioplasty (08/18/18) History of herniorrhaphy Hx of cholecystectomy History of tonsillectomy History of prostatectomy Social History household members: spouse and none Smoking Status: Former smoker quit date: 05/03/98 pack-years: 50 how long ago did patient quit smokin years ago alcohol intake: never substance use type: does not use caffeine: Yes Type: coffee and tea Number of servings: 6 ROS Constitutional Constitutional: Reports fatigue; Denies chills, fever(s) or weakness Eyes Eyes: Denies change in vision Cardiovascular Cardiovascular: Reports chest pain; Denies dyspnea on exertion, edema, lightheadedness or palpitations Respiratory/Chest Respiratory/Chest: Denies cough, shortness of breath at rest or wheezing Gastrointestinal Gastrointestinal: Denies abdominal pain Neurologic Neurologic: Denies dizziness, focal weakness or headache(s) Vital Signs Vital Signs Vital Signs: 11/30/24 15:45 Blood Pressure 146/70 H Physical Exam Const alert, oriented x3 and no apparent distress Constitutional Narrative: Elderly male, class II obesity, mildly fatigued appearing but otherwise sitting back comfortably in bed, conversing normally, in no acute distress. General Appearance: cooperative and comfortable HEENT normocephalic, head/scalp atraumatic, hearing grossly normal bilaterally, nasal mucous membranes and turbinates normal and moist oral mucous membranes Eyes PERRL, EOMs intact bilaterally and conjunctivae normal Neck full ROM Chest inspection of chest normal Resp normal respiratory effort, normal air movement, no use of accessory muscles and clear to auscultation bilaterally Resp Narrative: Breathing comfortably on room air at rest. Mildly diminished breath sounds in lung bases but otherwise no wheezing or crackles noted. Cardio regular rate, regular rhythm, no murmurs and peripheral pulses 2+ throughout GI normal to inspection, nondistended, normoactive bowel sounds, soft to palpation,non-tender and non-distended Back/Spine normal ROM Extremity normal to inspection, full ROM and no pedal edema Skin no rashes or lesions noted Psych mental status grossly normal Results Lab / Micro Data 11/30/24 15:25 11/30/24 15:25 Labs: Laboratory Results - last 24 hr 11/30/24 14:33: Activated Clotting Time 176 H 11/30/24 15:25: WBC 19.2 H, RBC 4.26 L, Hgb 12.5 L, Hct 39.6 L, MCV 93.0, MCH 29.3, MCHC 31.6 L, RDW Std Deviation 45.9 H, RDW Coeff of Adrian 13.5, Plt Count 168, MPV 13.7 H, Immature Gran % (Auto) 0.700, Neut % (Auto) 80.9 H, Lymph % (Auto) 10.1 L, Vernon % (Auto) 7.7, Eos % (Auto) 0.4, Baso % (Auto) 0.2, Absolute Neuts (auto) 15.5 H, Absolute Lymphs (auto) 1.93, Nucleated RBC % 0.1, Sodium 135, Potassium 4.4, Chloride 98, Carbon Dioxide 18.3 L, Anion Gap 19 H, BUN 45 H, Creatinine 3.10 H, Est GFR (MDRD) Non-Af 20 L, BUN/Creatinine Ratio 14.4, Glucose 328 H, Calcium 9.5, Troponin T High Sens 61 H* D 11/30/24 15:30: Activated Clotting Time 187 H Assessment & Plan Assessment/Plan (1) STEMI (ST elevation myocardial infarction): PLAN: Plan Patient is a 79-year-old male who presented [facility] ED on 11/30/2024 as a STEMI alert. 1. STEMI; history of CAD with stenting complicated by in-stent restenosis, hypertension, hyperlipidemia ? Admit under inpatient status to ICU. Cardiology following. See HPI for further details regarding CAD history. Presented with acute chest pain and EKG showed inferior STEMI. Emergent left heart cath showed subacute stent thrombosis of the proximal RCA s/p percutaneous revascularization with balloon angioplasty to the previously deployed stent (on 11/27) to the proximal RCA; had thrombus embolization to the right posterior lateral ventricular branch that wastreated with balloon angioplasty and placement of 2 new drug-eluting stents as well. Per cardiology, will stop Plavix and start Brilinta. Continue home aspirin, statin, amlodipine, and Toprol. Given BEVERLY as below, will hold home Lasix, losartan, spironolactone and metolazone for now. Appreciate cardiology recommendations on timing of restarting these medications. Echo ordered. Continue cardiac monitoring. 2. BEVERLY on CKD stage IIIb ? Creatinine 3.10 on admit, baseline around 1.9. Suspect prerenal etiology in setting of STEMI as above. Given 1 L of IV fluids over several hours by cardiology after STEMI. Follow-up a.m. BMP and monitor urine output. 3. Leukocytosis ? WBC count 19,000 on admit. Afebrile, no other infectious symptoms noted. Suspect secondary to acute stress state in setting of STEMI. Follow-up a.m. CBC. Chronic medical conditions: ? Class II obesity: BMI 35 on admit. Complicates hospital course and care. ? Type 2 diabetes mellitus with hyperglycemia: Blood glucose 328 on admit. PedoH6b from 2022 was 7.7%. Repeat A1c ordered. Hold home metformin and glimepiride. Will treat with sliding scale insulin with meals for now, adjust as needed. ? GERD: Continue home PPI. ? Anxiety/depression/insomnia: Continue home fluoxetine and mirtazapine. ? Chronic pain syndrome: Continue home hydrocodone?acetaminophen 3 times daily as needed. DVT prophylaxis: Heparin subcu CODE STATUS: Full code, verified Expected disposition: Home, TBD Total clinical time spent by myself addressing the patient's medical issues, reviewing all the data, and collaborating with patient's care team: 75 minutes. Charges/Coding Visit Charges Inpatient E&M: 30682 Init Hosp L3 11/30/242129 <Electronically signed by Abraham Ridley DO> Cosigner Signature (if applicable): CC: Dr. Abraham Ridley DO; Dr. Marycarmen Rodriguez DO~ Signed [facility] Work Phone: [phone]) 832-665307-31-2025 Radiology Diagnostic study [facility]2025 Consult note Author Jose Hay [facility] Note Date/Time November 30, 2024 4:51 pm [facility] Medical Records Department [address] [place] [address] Consultation - Cardiology 11/30/24 1642 MR#: [id number] Acct: [id number] Name: REIBERTO RICO Rep #:[id number] : 1945 79 From: Jose Hay MD PCP: Dr. Marycarmen Rodriguez DO Status:REG ER Location: ED Assessment & Plan Assessment/Plan (1) ST elevation (STEMI) myocardial infarction: PLAN: Emergent coronary angiography revealed subacute stent thrombosis of the proximal right coronary artery. Emergent percutaneous revascularization with balloon angioplasty to the previously deployed stent to the proximal RCA. Thrombus embolization to the right posterior lateral ventricular branch was treated with balloon angioplasty and placement of 2 drug-eluting stents. DEXTER-3flow was restored. Intravascular ultrasound showed excellent apposition of the stent to the proximal right coronary artery. However there is 360 degree arc of heavy calcification of the vessel. Will stop the patient's clopidogrel. Start him onticagrelor. Continue aspirin. (2) Coronary artery disease: PLAN: See #1 above. (3) Essential hypertension: PLAN: Furosemide, losartan and metoprolol. (4) Chronic kidney disease: PLAN: Monitor creatinine. (5) Dyslipidemia: PLAN: Atorvastatin. (6) Diabetes mellitus: HPI Consult Data Date of Consult: 11/30/24 HPI Narrative Reason for Consultation: STEMI HPI Narrative: 79-year-old gentleman with history significant for coronary artery disease. He has had coronary angiography done this last Wednesday which revealed severe in-stent restenosis of a heavily calcified proximal right coronary artery. Percutaneous intervention was performed with shockwave intracoronary lithotripsyand a drug- eluting stent. Per patient, he developed acute chest discomfort earlier this afternoon. Positive nausea and vomiting. EMS was called. An ECG was done in the field. Which showed changes consistent with an acute inferior myocardial infarction. Subsequently a STEMI alert was called. [facility] Medical History (Updated 11/30/24 @ 16:[address] Jose Hay MD) Diabetes mellitus Chronic kidney disease Shortness of breath Unstable angina Fatigue Syncope Left-sided weakness History of COVID-19 Presence of stent in coronary artery (~08/31/22) Dyslipidemia Coronary artery disease Angina pectoris Abnormal PFT [...] kidney disease, stage 3 Atherosclerotic heart disease andreafski coronary artery w/angina pectoris Type 2 diabetes mellitus without complications Hyperlipidemia Obesity Home Medications ?Medication ?Instructions ?Recorded ?Last Taken ?Type aspirin 81 mg tablet,delayed 81 mg PO DAILY@0800 healt h 01/21/17 10/11/23 History release maintenance mirtazapine 15 mg tablet (Remeron) 15 mg PO QHS sleep 09/21/18 10/11/23 History cyanocobalamin (vitamin B-12) 1,000 mcg PO DAILY vitam in ##0 06/01/19 10/11/23 History 1,000 mcg capsule magnesium oxide 400 mg (241.3 mg 800 mg PO DAILY SUPPL EMENT 08/01/21 10/11/23 History magnesium) tablet cetirizine 10 mg tablet 10 mg PO DAILY PRN Allergic 09/16/21 10/11/23 History Reaction cholecalciferol (vitamin D3) [address] 10/11/23 History mcg (1,000 unit) tablet fluoxetine 40 mg capsule 80 mg PO DAILY DEPRESSION 90 days 09/16/21 10/11/23 History #180 caps acetaminophen 325 mg tablet 650 mg PO Q6H PRN Pain 1-1 10/12/23 Unknown History glimepiride 4 mg tablet 4 mg PO QDAY diabetes Unknown History atorvastatin 40 mg tablet 40 mg PO QHS CHOLESTEROL #90 tabs 06/14/24 Unknown Rx clopidogrel 75 mg tablet [address] #90 tabs 0 06/14/24 Unknown Rx losartan 100 mg tablet 100 mg PO DAILY blood pressu re #90 06/14/24 Unknown Rx tabs nitroglycerin 0.4 mg sublingual 0.4 mg sublingual Q5-1 5M PRN CHEST 06/14/24 Unknown Rx tablet PAIN #25 tabs pantoprazole 40 mg tablet,delayed 40 mg PO DAILY GERD #90 tabs 06/14/24 Unknown Rx release potassium chloride 20 mEq 60 meq (3 x 20 mEq) PO BID 0 06/14/24 Unknown Rx tablet,extended release(part/cryst) supplement #180 ta bs spironolactone 50 mg tablet 50 mg PO DAILY diuretic #9 0 tabs 06/14/24 Unknown Rx albuterol sulfate 90 mcg/actuation 2 inh inhalation Q4 -6H PRN 09/20/24 Unknown Rx aerosol inhaler shortness of breath or wheez ing #8.5 grams amlodipine 5 mg tablet 5 mg PO QPM blood pressure 0 10/25/24 Unknown History isosorbide mononitrate 60 mg 60 mg PO BID heart #90 TA BLETS 10/25/24 Unknown Rx tablet,extended release 24 hr metformin 500 mg tablet 500 mg PO QDAY diabetes 10/02 09/24 Unknown History Held on 11/27/24. Instructions: Resume on 11/30/24. metolazone 2.5 mg tablet 2.5 mg PO QDAY diuretic 10/02 09/24 Unknown History metoprolol succinate 25 mg 25 mg PO DAILY blood pressu re #30 10/25/24 Unknown Rx tablet,extended release 24 hr tabs hydrocodone-acetaminophen 5-325mg 1 tab PO TID PRN jennifer n 11/22/24 11/27/24 History 5mg-325mg furosemide 80 mg tablet 80 mg PO DAILY #30 tabs 11/01 12/25 Unknown Rx Allergy/AdvReac Type Severity Reaction Status Date / Time No Known Allergies Allergy Verified 11/26/24 17:43 Family History Father Parkinsons disease Prostate cancer Mother Osteoporosis Surgical History Presence of coronary angioplasty implant and graft (11/27/24) History of tympanostomy tube placement History of percutaneous transluminal coronary angioplasty (08/18/18) History of herniorrhaphy Hx of cholecystectomy History of tonsillectomy History of prostatectomy Social History household members: spouse and none Smoking Status: Former smoker quit date: 05/03/98 pack-years: 50 how long ago did patient quit smokin years ago alcohol intake: never substance use type: does not use caffeine: Yes Type: coffee and tea Number of servings: 6 Physical Exam Narrative Mildly anxious. Obese. Heart sounds 1 and 2 noted. Chest clear to auscultation. Alert oriented x 3. 2+ bilateral lower extremity edema. Risk Stratification Risk Stratification Applicable: No Lab / Micro Data 11/30/24 15:25 11/30/24 15:25 Labs: Laboratory Results - last 24 hr 11/30/24 15:25: WBC 19.2 H, RBC 4.26 L, Hgb 12.5 L, Hct 39.6 L, MCV 93.0, MCH 29.3, MCHC 31.6 L, RDW Std Deviation 45.9 H, RDW Coeff of Adrian 13.5, Plt Count 168, MPV 13.7 H, Immature Gran % (Auto) 0.700, Neut % (Auto) 80.9 H, Lymph % (Auto) 10.1 L, Vernon % (Auto) 7.7, Eos % (Auto) 0.4, Baso % (Auto) 0.2, Absolute Neuts (auto) 15.5 H, Absolute Lymphs (auto) 1.93, Nucleated RBC % 0.1, Sodium 135, Potassium 4.4, Chloride 98, Carbon Dioxide 18.3 L, Anion Gap 19 H, BUN 45 H, Creatinine 3.10 H, Est GFR (MDRD) Non-Af 20 L, BUN/Creatinine Ratio 14.4, Glucose 328 H, Calcium 9.5, Troponin T High Sens 61 H* D Cardiology Labs/Tests 11/30/24 15:25: WBC 19.2 H, RBC 4.26 L, Hgb 12.5 L, Hct 39.6 L, MCV 93.0, MCH 29.3, MCHC 31.6 L, Plt Count 168, MPV 13.7 H, Immature Gran % (Auto) 0.700, Neut% (Auto) 80.9 H, Lymph % (Auto) 10.1 L, Vernon % (Auto) 7.7, Eos % (Auto) 0.4, Baso % (Auto) 0.2, Absolute Neuts (auto) 15.5 H, Nucleated RBC % 0.1, Sodium 135, Potassium 4.4, Chloride 98, Carbon Dioxide 18.3 L, Anion Gap 19 H, BUN 45 H, Creatinine 3.10 H, Est GFR (MDRD) Non-Af 20 L, BUN/Creatinine Ratio 14.4, Glucose 328 H, Calcium 9.5 Rhythm: EKG: ECHO: Stress Test: Cardiac Cath: PCI: CT Surgery: Holter monitor: EPS: PPM: CXR: Chest CT Scan: 11/30/24 1651 <Electronically signed by Jose Hay MD> Cosigner Signature (if applicable): CC: Dr. Jose Hay MD; Dr. Marycarmen Rodriguez DO~ Signed [facility] Work Phone: [phone]) 628-903707-29-2025 Consult note Author Cyndie Frye [facility] Note Date/Time November 28, 2024 12:2 8pm [facility] Medical Records Department [address] [place] [address] Counseling Note - Pharmacy 11/28/24 0920 MR#: [id number] Acct: [id number] Name: ERIBERTO RICO Rep #:[id number] : 1945 79 From: Cyndie Frye PCP: Dr. Marycarmen Rodriguez, DO Status:ADM EDUMND Y Location: [place] [address] Pharmacy [place] Med Reconciliation Pharmacy Service has performed discharge medication reconciliation for this patient. The patient's discharge medication list was reviewed for discrepancies and discrepancies were resolved. Medications at Discharge Home Medications aspirin 81 mg tablet,delayed release 81 mg PO DAILY@0800 health maintenance 01/21/17 mirtazapine 15 mg tablet (Remeron) 15 mg PO QHS sleep 09/21/18 cyanocobalamin (vitamin B-12) 1,000 mcg capsule 1,000 mcg PO DAILY vitamin ##0 06/01/19 magnesium oxide 400 mg (241.3 mg magnesium) tablet 800 mg PO DAILY SUPPLEMENT 08/01/21 cetirizine 10 mg tablet 10 mg PO DAILY PRN Allergic Reaction 09/16/21 cholecalciferol (vitamin D3) 25 mcg (1,000 unit) tablet [address] 09/16/21 fluoxetine 40 mg capsule 80 mg PO DAILY DEPRESSION 90 days #180 caps 09/16/21 acetaminophen 325 mg tablet 650 mg PO Q6H PRN Pain 1-02/0910/12/23 glimepiride 4 mg tablet 4 mg PO QDAY diabetes 03/20/24 atorvastatin 40 mg tablet 40 mg PO QHS CHOLESTEROL #90 tabs 06/14/24 clopidogrel 75 mg tablet [address] #90 tabs 06/14/24 losartan 100 mg tablet 100 mg PO DAILY blood pressure #90 tabs 06/14/24 nitroglycerin 0.4 mg sublingual tablet 0.4 mg sublingual Q5-15M PRN CHEST PAIN #25 tabs 06/14/24 pantoprazole 40 mg tablet,delayed release 40 mg PO DAILY GERD #90 tabs 06/14/24 potassium chloride 20 mEq tablet,extended release(part/cryst) 60 meq (3 x 20 mEq) PO BID supplement #180 tabs 06/14/24 spironolactone 50 mg tablet 50 mg PO DAILY diuretic #90 tabs 06/14/24 albuterol sulfate 90 mcg/actuation aerosol inhaler 2 inh inhalation Q4-6H PRN shortness of breath or wheezing #8.5 grams 09/20/24 amlodipine 5 mg tablet 5 mg PO QPM blood pressure 10/25/24 isosorbide mononitrate 60 mg tablet,extended release 24 hr 60 mg PO BID heart #90 TABLETS 10/25/24 metformin 500 mg tablet 500 mg PO QDAY diabetes 10/25/24 Held on 11/27/24. Instructions: Resume on 11/30/24. metolazone 2.5 mg tablet 2.5 mg PO QDAY diuretic 10/25/24 metoprolol succinate 25 mg tablet,extended release 24 hr 25 mg PO DAILY blood pressure #30 tabs 10/25/24 hydrocodone-acetaminophen 5-325mg 5mg-325mg 1 tab PO TID PRN pain 11/22/24 furosemide 80 mg tablet 80 mg PO DAILY #30 tabs 11/27/24 11/28/24 0920 <Electronically signed by Cyndie Frye> Date _ Cyndie Frye Cosigner Signature (if applicable): Date CC: ~ Signed [facility] Work Phone: 1(899) 997-396907-28-2025 Discharge summary Author Jose Hay [facility] Note Date/Time November 27, 2024 11:3 5am [facility] Medical Records Department [address] [place] [address] Instructions for Home/Discharge Instructions 11/27/24 1128 MR#: [id number] Acct: [id number] Name: ERIBERTO RICO Rep #:[id number] : 1945 79 From: Jose Hay MD PCP: Dr. Marycarmen Rodriguez, DO Status:REG SDC Discharge Instructions DC O2, CPAP, BIPAP needs Home O2 Discharge instructions: No Dressing / Incision Lifting Restrictions: No heavy lifting, bending, strous physical activity X 2 weeks Dressing / Incision Call your doctor if your incision/area has: Continuous Slow Oozing, Sudden Increased Bleeding, Increased Pain/ Swelling, Increased Redness, Foul Smelling Discharge and Swelling at the incision site Call your doctor if you observe: Fever of 101 or Higher, Coldness, Increased Pain and Numbness or Tingling Follow Up Care Please Follow Up With: Jose Hay MD When: 2 weeks Test Results: Test results from this visit will be discussed in further detail at your follow- up appointment, if applicable. Discharge Plan Admission Attending Provider: Jose Hay Primary Care Provider: Marycarmen Rodriguez Instructions Print Language: Guinean Discharge Orders/Prescriptions Prescriptions: New furosemide 80 mg Tablet 80 mg PO DAILY Qty: 30 6RF Continued fluoxetine 40 mg capsule 80 mg PO DAILY 90 Days Qty: 180 magnesium oxide 400 mg (241.3 mg magnesium) tablet 800 mg PO DAILY cetirizine 10 mg tablet 10 mg PO DAILY PRN (Reason: Allergic Reaction) cholecalciferol (vitamin D3) 25 mcg (1,000 unit) tablet 25 mcg PO DAILY glimepiride 4 mg tablet 4 mg PO QDAY hydrocodone-acetaminophen 5-325 mg tablet 1 tab PO TID PRN (Reason: pain) albuterol sulfate 90 mcg/actuation HFA aerosol inhaler 2 inh inhalation Q4-6H PRN (Reason: shortness of breath or wheezing) Qty: 8.53RF amlodipine 5 mg tablet 5 mg PO QPM metolazone 2.5 mg tablet 2.5 mg PO QDAY isosorbide mononitrate 60 mg tablet extended release 24 hr 60 mg PO BID Qty: 90 3RF metoprolol succinate 25 mg tablet extended release 24 hr 25 mg PO DAILY Qty: 30 11RF aspirin 81 MG tablet 81 mg PO DAILY@0800 cyanocobalamin (vitamin B-12) 1,000 MCG capsule 1,000 mcg PO DAILY Qty: 0 acetaminophen 325 MG tablet 650 mg PO Q6H PRN (Reason: Pain -02/09) mirtazapine [Remeron] 15 mg tablet 15 mg PO QHS losartan 100 mg tablet 100 mg PO DAILY Qty: 90 3RF nitroglycerin 0.4 mg tablet, sublingual 0.4 mg SUBLINGUAL Q5-15M PRN (Reason: CHEST PAIN) Qty: 25 3RF atorvastatin 40 mg tablet 40 mg PO QHS Qty: 90 3RF clopidogrel 75 mg tablet 75 mg PO DAILY Qty: 90 3RF potassium chloride 20 mEq tablet,ER particles/crystals 60 meq PO BID Qty: 180 3RF spironolactone 50 mg tablet 50 mg PO DAILY Qty: 90 3RF pantoprazole 40 mg tablet,delayed release (DR/EC) 40 mg PO DAILY Qty: 90 3RF Held metformin 500 mg tablet 500 mg PO QDAY Hold Instructions: Resume on 11/30/24. Discontinued furosemide 40 mg tablet 40 mg PO BID Qty: 180 3RF Referrals / Follow Up: Marycarmen Rodriguez DO [Primary Care Provider] - Disposition Disposition (needs filled in before D/C Order can be placed): Home, Self Care 11/27/24 1135<Electronically signed by Jose Hay MD>Jose Hay MD CC: Dr. Marycarmen Rodriguez DO ~ Signed [facility] Work Phone: 1(849) 737-272807-27-2025 Radiology Diagnostic study [facility]07-27-2025 Radiology Diagnostic study [facility]07-27-2025 Radiology Diagnostic study [facility] 11-26-2024 Radiology Diagnostic study [facility]07-27-2025 Radiology Diagnostic study [facility]07-27-2025 Radiology Diagnostic study [facility]07-27-2025 Discharge summary Author Isael Bernabe [facility] Note Date/Time November 26, 2024 9:41 pm [facility] Medical Records Department [address] [place] [address] Emergency Department Summary 11/26/24 MR#: [id number] Acct: [id number] Name: ERIBERTO RICO Rep #:[id number] : 1945 79 From: Isael Bernabe MD PCP: Dr. Marycarmen Rodriguez DO Status:REG ER Location: ED HPI HPI - Fall History of Present Illness Chief Complaint: Chest Pain Narrative Narrative: 79-year-old male presents via EMS status post fall. He is unsure if he had a syncopal episode or not. He relates history that he has angina and shortness ofbreath. He does not wear oxygen at home. He supposed to have heart catheterization by Dr. Artemio Kulkarni as an outpatient tomorrow. He was at a alliance party today, walking down the steps of a deck to get to the pool. His was behindhim. His and his daughter did not witness the fall, but his left knee may have given out underneath him. He fell forward. The last thing he remembered was walking down the stairs, and then picking him up and taking him to the side. States he has pain in his left knee greater than his right and that his toes feel funny on the left foot secondary to his knee pain. He also complains of pain in his right hand at the base of his second digit, and in his palm. He is unsure of his last tetanus immunization as he sustained abrasions to his bilateral knees. He denies any headache or neck pain. He complained to EMS that he was having chest heaviness which she has had previously and is the reason for his catheterization scheduled for tomorrow. They placed him on oxygen for comfort. He presents status post fall with chest heaviness. 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 Type 2 diabetes mellitus without complications Hyperlipidemia Obesity Home Medications ?Medication ?Instructions ?Recorded ?Last Taken ?Type aspirin 81 mg tablet,delayed 81 mg PO DAILY@0800 healt h 01/21/17 10/11/23 History release maintenance mirtazapine 15 mg tablet (Remeron) 15 mg PO QHS sleep 09/21/18 10/11/23 History cyanocobalamin (vitamin B-12) 1,000 mcg PO DAILY vitam in ##0 06/01/19 10/11/23 History 1,000 mcg capsule magnesium oxide 400 mg (241.3 mg 800 mg PO DAILY SUPPL EMENT 08/01/21 10/11/23 History magnesium) tablet cetirizine 10 mg tablet 10 mg PO DAILY PRN Allergic 09/16/21 10/11/23 History Reaction cholecalciferol (vitamin D3) [address] 10/11/23 History mcg (1,000 unit) tablet fluoxetine 40 mg capsule 80 mg PO DAILY DEPRESSION 90 days 09/16/21 10/11/23 History #180 caps acetaminophen 325 mg tablet 650 mg PO Q6H PRN Pain 1-1 10/12/23 Unknown History glimepiride 4 mg tablet 4 mg PO QDAY 03/20/24 Unknow n History atorvastatin 40 mg tablet 40 mg PO QHS CHOLESTEROL #90 tabs 06/14/24 Unknown Rx clopidogrel 75 mg tablet [address] #90 tabs 0 06/14/24 Unknown Rx furosemide 40 mg tablet 40 mg PO BID #180 tabs 06/14 Unknown Rx losartan 100 mg tablet 100 mg PO DAILY #90 tabs 04/26 Unknown Rx nitroglycerin 0.4 mg sublingual 0.4 mg sublingual Q5-1 5M PRN CHEST 06/14/24 Unknown Rx tablet PAIN #25 tabs pantoprazole 40 mg tablet,delayed 40 mg PO DAILY GERD #90 tabs 06/14/24 Unknown Rx release potassium chloride 20 mEq 60 meq (3 x 20 mEq) PO BID 0 06/14/24 Unknown Rx tablet,extended release(part/cryst) supplement #180 ta bs spironolactone 50 mg tablet 50 mg PO DAILY #90 tabs Unknown Rx albuterol sulfate 90 mcg/actuation 2 inh inhalation Q4 -6H PRN 09/20/24 Unknown Rx aerosol inhaler shortness of breath or wheez ing #8.5 grams amlodipine 5 mg tablet 5 mg PO QPM 10/25/24 Unknown History isosorbide mononitrate 60 mg 60 mg PO BID #90 TABLETS 10/25/24 Unknown Rx tablet,extended release 24 hr metformin 500 mg tablet 500 mg PO QDAY 10/25/24 Unkn own History metolazone 2.5 mg tablet 2.5 mg PO QDAY 10/25/24 Unkn own History metoprolol succinate 25 mg 25 mg PO DAILY #30 tabs Unknown Rx tablet,extended release 24 hr hydrocodone-acetaminophen 5-325mg 1 tab PO TID PRN jennifer n 11/22/24 Unknown History 5mg-325mg Allergy/AdvReac Type Severity Reaction Status Date / Time No Known Allergies Allergy Verified 11/26/24 17:43 Family History Father Parkinsons disease Prostate cancer Mother Osteoporosis Surgical History Presence of coronary angioplasty implant and graft (~08/31/22) History of tympanostomy tube placement History of percutaneous transluminal coronary angioplasty (08/18/18) History of herniorrhaphy Hx of cholecystectomy History of tonsillectomy History of prostatectomy Social History household members: spouse and none Smoking Status: Former smoker quit date: 05/03/98 pack-years: 50 how long ago did patient quit smokin years ago alcohol intake: never substance use type: does not use caffeine: Yes Type: coffee and tea Number of servings: 6 ROS ROS ED ROS Narrative Review of systems positive for bilateral knee abrasions with left knee pain greater than right. Numbness of toes on left lower extremity. Hand pain in palm of hand at base of second digit. No headache, no neck pain. Positive chest heaviness. Has had history of chest heaviness. Scheduled for heart catheterization tomorrow. EXAM Physical Exam Narrative Exam Narrative: Afebrile. Vital signs noted. GCS 15. ABCs intact. Cardiovascular examinationreveals regular rate and rhythm. Mild tachypnea. Lung sounds distant but moving a good amount of air. Abdomen soft and nontender. Positive abrasions bilateral knees. No active bleeding. Limited range of motion of left knee secondary to pain. EHL intact bilaterally. Mild tenderness to palpation palm of right hand at base of second digit. Const Vital Signs: 11/26/24 17:37 11/26/24 17:42 11/26/24 17:45 Temperature 98.2 F 98.2 F Temperature Source Oral Oral Pulse Rate 82 86 Respiratory Rate 20 H 21 H Respiratory Effort Normal Short of Breath Respiratory Depth Respiratory Pattern Blood Pressure 132/69 H 132/69 H Blood Pressure Mean 90 90 Pulse Ox 97 97 Oxygen Delivery Method Room Air Nasal Cannula Oxygen Flow Rate (L/min) 2 11/26/24 17:45 11/26/24 18:03 11/26/24 18:09 Temperature Temperature Source Pulse Rate 83 Respiratory Rate 19 H Respiratory Effort Normal Respiratory Depth Normal Respiratory Pattern Normal Blood Pressure Blood Pressure Mean Pulse Ox 97 96 96 Oxygen Delivery Method Nasal Cannula Nasal Cannula Oxygen Flow Rate (L/min) 2 2 11/26/24 18:15 11/26/24 18:30 11/26/24 18:33 Temperature Temperature Source Pulse Rate 93 Respiratory Rate 20 H Respiratory Effort Respiratory Depth Respiratory Pattern Blood Pressure 130/58 H 107/64 Blood Pressure Mean 77 79 Pulse Ox Oxygen Delivery Method Oxygen Flow Rate (L/min) 11/26/24 18:37 11/26/24 18:45 11/26/24 18:59 Temperature Temperature Source Pulse Rate 80 79 85 Respiratory Rate 20 H 19 H 19 H Respiratory Effort Respiratory Depth Respiratory Pattern Blood Pressure 107/84 H 122/63 H 122/63 H Blood Pressure Mean 91 78 82 Pulse Ox 95 Oxygen Delivery Method Room Air Oxygen Flow Rate (L/min) 11/26/24 20:00 11/26/24 21:00 Temperature 98.1 F 98.4 F Temperature Source Temporal Temporal Pulse Rate 78 73 Respiratory Rate 16 16 Respiratory Effort Respiratory Depth Respiratory Pattern Blood Pressure 109/94 H 132/68 H Blood Pressure Mean 99 89 Pulse Ox 97 95 Oxygen Delivery Method Room Air Room Air Oxygen Flow Rate (L/min) MDM MDM MDM Narrative Medical decision making narrative: The differential diagnosis includes but not limited to closed head injury versusintracranial hemorrhage versus syncopal episode versus unstable angina versus chronic angina versus tibial plateau fracture of left knee versus knee contusionwith abrasion. Comprehensive workup was pursued. I reviewed the prehospital EKG which demonstrates normal sinus rhythm at [address] changes. No STEMI. EKG was obtained here as well and interpreted by myself independently as normal sinus rhythm at 84 bpm without ectopy or acute ST changes. No STEMI. I will obtain CT imaging of the brain to rule out intracranial hemorrhage and CT of theC-spine to rule out acute fracture. X-rays were obtained of the bilateral kneesand the right hand also to rule out fracture. I reviewed his laboratory work and he has normal white count of 9.2 with hemoglobin stable at 11.8, hematocrit 36.7, platelet count slightly low at 132. When compared to prior labs, he has had chronic thrombocytopenia. BMP shows creatinine elevated at 2.34, but a few days ago was higher at 2.5, I feel this is his baseline currently. Sodium normal at 137 with potassium 4.4, glucose elevated 275 but he has a normal anion gap of 15 so I doubt diabetic ketoacidosis. BNP is elevated slightly at 162 but once again when compared to prior laboratories he is at his baseline and this is improved over previous. Initial high-sensitivity troponin is 18 with repeat being 20. I do not feel that his chest pain is related to an acute coronary syndrome that would require heparin and inpatient admission. I discussed this with Dr. Araujo with cardiology who agrees that he could be discharged to follow-up as an outpatient for his cardiac catheterization tomorrow morning. I reviewed the radiology reports of the CT of the brain and of the cervical spine which show no evidence of an acute hemorrhage or fracture. There are degenerative changes. On my individual interpretation of the bilateral knee x-rays, there is no evidence of acute fracture. Additionally, on my individual interpretation of the chest x-ray, no pneumonia or pneumothorax. X-ray of the right hand interpreted by myself independently shows no evidence of acute fracture. I reviewed the radiology reports for all of this imaging which confirms my independent interpretations of the x-rays. His wounds were cleansed and dressed. He was given 1 [place] which he usually takes at home for pain. He was able to ambulate without difficulty. At this point in time, he is motivated for discharge. I do not feel that he requires admission at this time or observation. I feel he can be discharged to follow-upwith his cardiac catheterization tomorrow morning. Patient will continue his [place] at home and follow-up as previously directed. He will follow-up with his primary care provider for the injuries from his fall. I feel he can be discharged. Return instructions reviewed. Disposition is discharged home in stable condition. History & Record Review Discussion w/independent historian: Patient and Family Additional record(s) reviewed:: Prior ED visit and Prior labs Lab Data Attestation: I reviewed the patient's lab results. Labs: Laboratory Results - last 24 hr 11/26/24 11/26/24 17:45 20:15 WBC 9.2 RBC 4.04 L Hgb 11.8 L Hct 36.7 L MCV 90.8 MCH 29.2 MCHC 32.2 RDW Std Deviation 46.6 H RDW Coeff of Adrian 13.9 Plt Count 132 L MPV 12.8 H Immature Gran % (Auto) 0.400 Neut % (Auto) 71.8 H Lymph % (Auto) 16.7 L Vernon % (Auto) 9.5 Eos % (Auto) 1.3 Baso % (Auto) 0.3 Absolute Neuts (auto) 6.6 Absolute Lymphs (auto) 1.53 Nucleated RBC % 0 Sodium 137 Potassium 4.4 Chloride 100 Carbon Dioxide 21.5 Anion Gap 15 BUN 43 H Creatinine 2.34 H Estim Creat Clear Calc 31.97 L Est GFR (MDRD) Non-Af 28 L BUN/Creatinine Ratio 18.2 Glucose 275 H Calcium 9.2 Troponin T High Sens 18 Troponin T Hi Sens 2 Hr 20 NT pro BNP II 162 Radiography Chest X-Ray - ED: 1 View, Read by ED Physician and Read by Radiologist Diagnostic Testing: Clinical Impression(s) from Imaging Studies Brain CT 11/26/24 18:03 IMPRESSION: No acute intracranial process. Reading Location: [facility] Cervical Spine CT 11/26/24 18:03 IMPRESSION: No acute compression deformity, fracture, or subluxation. Moderate multilevel degenerative changes of the cervical spine. Cervical ACDF with interbody spacers spanning C4-C6 without hardware complications. Reading Location: [facility] Chest X-Ray 11/26/24 18:03 IMPRESSION: Negative for edema Reading Location: [facility] Knee X-Ray 11/26/24 18:03 IMPRESSION: Degenerative changes without fracture Reading Location: [facility] Hand X-Ray 11/26/24 18:07 IMPRESSION: Degenerative changes. No visible fracture. Reading Location: [facility] Knee X-Ray 11/26/24 18:07 IMPRESSION: Joint effusion [facility] Management Discussion w/another healthcare provider: Career Services Manager (Dr. Araujo) Discharge Plan Triage Chief Complaint: Chest Pain Other Complaint: Fall ED Provider: Isael Bernabe Dx/Rx/DC Orders Clinical Impression: Fall, Contusion of left knee, Contusion of right knee, Abrasion, Contusion of hand, right Instructions: ED Abrasion, ED Hand Contusion, ED Contusion, Lower Extremity, EDChest Pain, Uncertain Cause Prescriptions: No Action fluoxetine 40 mg capsule 80 mg PO DAILY 90 Days Qty: 180 magnesium oxide 400 mg (241.3 mg magnesium) tablet 800 mg PO DAILY cetirizine 10 mg tablet 10 mg PO DAILY PRN (Reason: Allergic Reaction) cholecalciferol (vitamin D3) 25 mcg (1,000 unit) tablet 25 mcg PO DAILY glimepiride 4 mg tablet 4 mg PO QDAY hydrocodone-acetaminophen 5-325 mg tablet 1 tab PO TID PRN (Reason: pain) albuterol sulfate 90 mcg/actuation HFA aerosol inhaler 2 inh inhalation Q4-6H PRN (Reason: shortness of breath or wheezing) Qty: 8.53RF amlodipine 5 mg tablet 5 mg PO QPM metformin 500 mg tablet 500 mg PO QDAY metolazone 2.5 mg tablet 2.5 mg PO QDAY isosorbide mononitrate 60 mg tablet extended release 24 hr 60 mg PO BID Qty: 90 3RF metoprolol succinate 25 mg tablet extended release 24 hr 25 mg PO DAILY Qty: 30 11RF aspirin 81 MG tablet 81 mg PO DAILY@0800 cyanocobalamin (vitamin B-12) 1,000 MCG capsule 1,000 mcg PO DAILY Qty: 0 acetaminophen 325 MG tablet 650 mg PO Q6H PRN (Reason: Pain -02/09) mirtazapine [Remeron] 15 mg tablet 15 mg PO QHS losartan 100 mg tablet 100 mg PO DAILY Qty: 90 3RF nitroglycerin 0.4 mg tablet, sublingual 0.4 mg SUBLINGUAL Q5-15M PRN (Reason: CHEST PAIN) Qty: 25 3RF atorvastatin 40 mg tablet 40 mg PO QHS Qty: 90 3RF clopidogrel 75 mg tablet 75 mg PO DAILY Qty: 90 3RF furosemide 40 mg tablet 40 mg PO BID Qty: 180 3RF potassium chloride 20 mEq tablet,ER particles/crystals 60 meq PO BID Qty: 180 3RF spironolactone 50 mg tablet 50 mg PO DAILY Qty: 90 3RF pantoprazole 40 mg tablet,delayed release (DR/EC) 40 mg PO DAILY Qty: 90 3RF Primary Care Provider: Marycarmen Rodriguez Referrals: Marycarmen Rodriguez DO [Primary Care Provider] - 3-5 Days if not improving Activity Restrictions/Additional Instructions: Have your cardiac catheterization performed tomorrow as scheduled at 8:30 in themorning. Return with new or worsening symptoms. Print Language: Guinean Disposition Disposition: Home, Self Care What to do if you have Problems For any increased pain, shortness of breath, bleeding, nausea or vomiting, chestpain, or any unexpected problems, contact your Primary Care Provider. Call [facility] ([phone]) or report to the closest Emergency Room. Call 911 if necessary. 11/26/242140 <Electronically signed by Isael Bernabe MD> Cosigner Signature (if applicable): CC: Dr. Marycarmen Rodriguez DO ~ Signed [facility] Work Phone: 1(406) 781-542507-27-2025 Hospital Discharge instructionsAdditional Instructions Have your cardiac catheterization performed tomorrow as scheduled at 8:30 in the morning. Return with new or worsening symptoms.[facility] Work Phone: 1(864) 418-529607-24-2025 Radiology Diagnostic study [facility]07-21-2025 Radiology Diagnostic study [facility]05-21-2025 Evaluation note* Diagnosis Onset Date Resolution Status Admit Date COPD (chronic obstructive pulmonary disease) chronic September 20 10:13am Diastolic heart failure chronic [facility] 2024 10:13am Obesity chronic September 20, 2024 10:13am Obstructive sleep apnea chronic [facility] 2024 10:13am Shortness of breath acute October 25, 2024 7:54am Bilateral lower extremity edema 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 October 25, 2024 7:54am Chest pain chronic October 25 7:54am Chronic kidney disease, stage 3 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 October 25, 2024 7:54am Coronary artery [...] 2024 10:00am Obstructive sleep apnea chronic J shannon2024 10:00am [facility] Work Phone: 1(736) 434-301605-21-2025 Evaluation note* Diagnosis Onset Date Resolution Status Admit Date COPD (chronic obstructive pulmonary disease) chronic September 20 10:13am Diastolic heart failure chronic M ay 2024 10:13am Obesity chronic September 20, 2024 10:13am Obstructive sleep apnea chronic M ay 2024 10:13am Shortness of breath acute October 25, 2024 7:54am Bilateral lower extremity edema 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 October 25, 2024 7:54am Chest pain chronic October 25 7:54am Chronic kidney disease, stage 3 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 October 25, 2024 7:54am Coronary artery [...] sleep apnea chronic J shannon 2024 10:00am Presence of stent in coronar y artery Aug, 2022 acute November 22, 2024 10:53am Shortness of breath acute November 22, 2024 10:53am Bilateral lower extremity edema 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 November 22, 2024 10:53am Chest pain chronic November 22 10:53am Chronic kidney disease, stage 3 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 November 22, 2024 10:53am Essential hypertension chronic Ju ly 2024 10:53am Hyperlipidemia chronic November 22, 2024 10:53am Obesity chronic November 22 10:53am Type 2 diabetes mellitus wit hout complications chronic November 22, 2024 10:53am [facility] Work Phone: 1(629) 166-970405-21-2025 Evaluation note* Diagnosis Onset Date Resolution Status Admit Date COPD (chronic obstructive pulmonary disease) chronic September 20 10:13am Diastolic heart failure chronic M ay 2024 10:13am Obesity chronic September 20, 2024 10:13am Obstructive sleep apnea chronic M ay 2024 10:13am Shortness of breath acute October 25, 2024 7:54am Bilateral lower extremity edema 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 October 25, 2024 7:54am Chest pain chronic October 25 7:54am Chronic kidney disease, stage 3 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 October 25, 2024 7:54am Coronary artery [...] sleep apnea chronic J shannon 2024 10:00am Presence of stent in coronar y artery Aug, 2022 acute November 22, 2024 10:53am Shortness of breath acute November 22, 2024 10:53am Bilateral lower extremity edema 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 November 22, 2024 10:53am Chest pain chronic November 22 10:53am Chronic kidney disease, stage 3 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 November 22, 2024 10:53am Essential hypertension chronic Ju ly 2024 10:53am Hyperlipidemia chronic November 22, 2024 10:53am Obesity chronic November 22 10:53am Type 2 diabetes mellitus wit hout complications chronic November 22, 2024 10:53am Diabetes mellitus acute November 302024 4:59pm ST elevation (STEMI) myocard ial infarction acute November 30, 2024 4:59pm Chest pain chronic November 30 4:59pm Chronic kidney disease chronic Ju ly 2024 4:59pm Chronic kidney disease, stage 3 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 November 30, 2024 4:59pm Coronary artery disease chronic J shannon 2024 4:59pm Dyslipidemia chronic November 30, 4:59pm Essential hypertension chronic Ju ly 2024 4:59pm [facility] Work Phone: 1(591) 554-748205-21-2025 Evaluation note* Diagnosis Onset Date Resolution Status [...] chronic October 25 7:54am Chronic kidney disease, stag e 3 chronic October 25, 2024 7:54am Coronary [...] sleep apnea chronic J shannon 2024 10:00am Presence of stent in coronar y artery Aug, 2022 acute November 22, 2024 10:53am Shortness of breath acute November 22, 2024 10:53am Bilateral lower extremity edema chronic November 22, 2024 10:53am Chest pain chronic November 22 10:53am Chronic kidney disease, stag e 3 chronic November 22, 2024 10:53am Essential hypertension chronic Ju ly 2024 10:53am Hyperlipidemia chronic November 22, 2024 10:53am Obesity chronic November 22 10:53am Type 2 diabetes mellitus without complications chronic November 22, 2024 10:53am Acute kidney injury superimposed on stage 4 chronic kidney disease acute October 4:59pm Diabetes mellitus acute November 302024 4:59pm Leukocytosis acute November 30, 025 4:59pm STEMI (ST elevation myocardi al infarction) November 30, 2024 acute November 30, 2024 4:59pm Chest pain chronic November 30 4:59pm Chronic kidney disease chronic Ju ly 2024 4:59pm Chronic kidney disease, stag e 3 chronic November 30, 2024 4:59pm Coronary artery disease chronic J shannon 2024 4:59pm Dyslipidemia chronic November 30, 2 025 4:59pm Essential hypertension chronic Ju ly 2024 4:59pm [facility] Work Phone: 1(386) 148-533103-18-2025 Procedure notey [facility]monary Services/Neurology [address] [place] [address] MR#: [id number] Acct: [id number] Name: ERIBERTO RICO Rep #:[id number] : 1945 78 From: Zen East DO Referring Dr: Marni Horn WAITER/WAITRESS TAKE OUT WAITER/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 TAKE OUT-C Status: REG CLI Location: PSN Date: Sex: M C PSN 6 Minute Walk Test 6 Minute Walk Test 6 Minute Walk Test: 6 Minute Walk Test PSN:6-Minute Walk Test Start: 07/18/24 06:38 Freq: Status: Active Protocol: RESP.6MINW Document 07/18/24 06:00 [facility] (Rec: 07/18/24 06:47 [facility] [id number]) 6 Minute Walk Test Date Performed 07/18/24 Time Performed 06:00 Height 5 ft 9 in Weight: 230 lb Weight in Pounds 230.[address]: Marni Horn WAITER/WAITRESS TAKE OUT Assistive device Cane used: Pre-test Oxygen Delivery [...] East DO CC: ~ Date Dictated: 07/18/24 1032 Date Transcribed: 07/18/24 103 Director Of Product Design: Dr. 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 October 25, 2024 7:54am Chronic kidney disease, stage 3 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 October 25, 2024 7:54am Coronary artery disease chronic J une 2024 7:54am Essential hypertension chronic Ju ne 2024 7:54am Hyperlipidemia chronic October 25, 2024 7:54am Obesity chronic October 25 7:54am Type 2 diabetes mellitus wit hout complications chronic October 25, 2024 7:54am Chest pain inactive October 25 7:54am [facility] Work Phone: 1(515) 542-651103-03-2025 Evaluation note* Diagnosis Onset Date Resolution Status [...] 25, 2024 7:54am Bilateral lower extremity edema 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 October 25, 2024 7:54am Chest pain chronic October 25 7:54am Chronic kidney disease, stage 3 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 October 25, 2024 7:54am Coronary artery disease chronic J une 2024 7:54am Essential hypertension chronic Ju ne 2024 7:54am Hyperlipidemia chronic October 25, 2024 7:54am Obesity chronic October 25 7:54am Type 2 diabetes mellitus wit hout complications chronic October 25, 2024 7:54am [facility] Work Phone: 1(490) 114-263103-03-2025 Evaluation note* Diagnosis Onset Date Resolution Status Admit Date COPD (chronic obstructive pulmonary disease) chronic July 03 1:10pm Diastolic heart failure chronic arch 2024 1:10pm Obesity chronic July 03 1:10pm Obstructive sleep apnea chronic [facility] 2024 1:10pm COPD (chronic obstructive pulmonary disease) chronic September 20 10:13am Diastolic heart failure chronic [facility] 2024 10:13am Obesity chronic September 20, 2024 10:13am Obstructive sleep apnea chronic [facility] 2024 10:13am Shortness of breath acute October 25, 2024 7:54am Bilateral lower extremity edema 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 2024 10:00am Obesity chronic October 31, 2024 10:00am Obstructive sleep apnea chronic [facility] 2024 10:00am [facility] Work Phone: 1(752) 671-543003-03-2025 Evaluation note* Diagnosis Onset Date Resolution Status Admit Date COPD (chronic obstructive pulmonary disease) chronic July 03 1:10pm Diastolic heart failure chronic [facility] 2024 1:10pm Obesity chronic July 03 1:10pm Obstructive sleep apnea [facility] 2024 1:10pm COPD (chronic obstructive pulmonary disease) chronic September 20 10:13am Diastolic heart failure chronic [facility] 2024 10:13am Obesity chronic September 20, 2024 10:13am Obstructive sleep apnea chronic [facility] 2024 10:13am Shortness of breath acute October 25, 2024 7:54am Bilateral lower extremity edema 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 October 25, 2024 7:54am Chest pain chronic October 25 7:54am Chronic kidney disease, stage 3 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 October 25, 2024 7:54am Coronary artery [...] 31 10:00am Diastolic heart failure chronic J 2024 10:00am Obesity chronic October 31, 2024 10:00am Obstructive sleep apnea chronic J shannon2024 10:00am [facility] Work Phone: 1(896) 982-522812-16-2024 Evaluation note* Diagnosis Onset Date Resolution Status Admit Date DEAN (dyspnea on exertion) acute April 17, 2024 3:51pm Bilateral lower extremity edema 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 April 17, 2024 3:51pm Chronic kidney disease, stage 3 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 April 17, 2024 3:51pm Coronary artery [...] July 03 1:10pm Obstructive sleep apnea chronic [facility] 2024 1:10pm [facility] Work Phone: 1(364) 286-397711-18-2024 Evaluation note* Diagnosis Onset Date Resolution Status Admit Date Bilateral lower extremity edema 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 March 20, 2024 10:31am Chronic kidney disease, stage 3 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 March 20, 2024 10:31am Coronary artery disease chronic N ovember 2023 10:31am Essential hypertension chronic No vember 2023 10:31am Hyperlipidemia chronic March 032023 10:31am Obesity chronic March 20, 2024 10:31am Type 2 diabetes mellitus without complications chronic March 032023 10:31am DEAN (dyspnea on exertion) acute April 17, 2024 3:51pm Bilateral lower extremity edema 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 Hay [facility] September 01, 2022 9:55am Note Date/Time September 01, 2022 8:37am [facility] Medical Records Department [address] [place] [id number] Instructions for Home/Discharge Instructions 09/01/22 0835 MR#: [id number] Acct: [id number] Name: ERIBERTO RICO Rep #:[id number] : 1945 77 From: Jose Hay MD PCP: Dr. Marycarmen Rodriguez, Status:ADM EDMUND Discharge Instructions Diet Discharge Diet: [...] can be placed): Home, Self Care 09/01/22 4926<Electronically signed by Jose Hay MD>Jose Hay MD CC: Dr. Marycarmen Rodriguez, DO ~ Signed [facility] Work Phone: 1(339) 305-216408-26-2021 Miscellaneous Notes* Assessment & Plan Note - [...] with any necessary intervention. documented in this [id number] History of Present illness Narrative* Eladio Ingram [...] patient is not nervous/anxious. documented in this [id number] Miscellaneous Notes* Assessment & Plan Note - Fernanda Acuña CNP - 10/09/2020 11:44 AM EDT Associated Problem(s): Coronary artery disease involving andreafski coronary artery of andreafski heart without angina pectoris Multiple previous cardiac catheterizations with intervention. Most recent cardiac caths were performed in 2018, August 03 at [facility], and August 18 at [facility] in [place]. 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 The notes from the cath at [facility] indicate that they were able to get [...] intolerance, and chest pressure. documented in this [id number] History of Present illness Narrative* Fernanda Acuña CNP - 10/09/2020 11:19 AM EDT [facility] [address] [facility] [address] [facility] [id number] Assessment & Plan: Hypertension Blood pressure mildly [...] without CPAP use. Coronary artery disease involving andreafski coronary artery of andreafski heart without angina pectoris Multiple previous cardiac catheterizations with intervention. Most recent cardiac caths were performed in 2018, August 03 at [facility], and August 18 at [facility] in [place]. 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 The notes from the cath at [facility] indicate that they were able to get [...] re-establish care. He has been following at [facility] and [facility] for his cardiology care over the past 4 years. His integrative medicine physician retired at some point and his primary care physician wanted him evaluated. Eriberto has long-standing coronary artery disease and his history is primarily obtained through records from [facility]. Eriberto is uncertain of many of the [...] artery disease Diabetes mellitus (HCC) Diastolic CHF ([facility]) Hyperlipidemia Hypertension Lower leg edema Myocardial infarction ([facility]) 2009 Peripheral vascular disease ([facility]) Sleep apnea Stroke ([facility]) Testicle swelling Past Surgical History: Procedure Laterality Date CARDIAC CATHETERIZATION N/A 01/04/2015 Left Heart Cath,Stent, EF 60%; Eladio Ingram MD; [facility] CARDIAC CATHETERIZATION N/A 01/28/2015 Left Heart Cath, EF 60%; Eladio Ingram MD; [facility] CARDIAC CATHETERIZATION N/A 06/18/2015 Left Heart Cath, Right Upper Extremity Angiogram, EF 60%; Eladio Ingram MD; [facility] CARDIAC CATHETERIZATION N/A 03/17/2016 Procedure: Left and Right Heart Cath Poss Stent; Surgeon: Eladio Ingram MD; Location: [facility]; Service: CARDIAC CATHETERIZATION 03/22/2014 EF 60% CARDIAC CATHETERIZATION 06/29/2013 EF 60% CARDIAC CATHETERIZATION 09/08/2012 EF 55% CARDIAC CATHETERIZATION 03/22/2014 EF 60% CARDIAC CATHETERIZATION Right 10/15/2016 Procedure: Left Heart Cath Possible PTCA/Stent; Surgeon: Merritt Arthur MD; Location: [facility]; Service: CHOLECYSTECTOMY CORONARY ANGIOPLASTY WITH STENT [...] ectopy, no acute changes. 50 minutes spent [id number] with patient Follow Up Ordered: Return for [...] patient is not nervous/anxious. documented in this [id number] NotePatient Outreach ([facility]OVAM[facility]) ERIBERTO RICO ([id number]) 1945 M Date Time Provider Department 06/25/20 PETRONA TELLES During your visit today, we recorded the following information about you: Allergies As of Date: 06/25/2020 (No Known Allergies) Date Reviewed: 08/19/2018 Reviewed by: Moise Newby) ALEX Mcgraw - Fully Assessed Order(s):SARS-COVID VACCINE 1ST DOSE APPT [[id number]] Order #: [id number] FUTURE Prescriptions as of 06/25/2020 Sig: CLOPIDOGREL [...] 08/15/2018 COPD (chronic obstructive pulmonary disease) (H*08/15/2018 BEVERLY (acute kidney injury) (HCC) [N17.9] 08/15/2018 Coronary artery disease involving andreafski smith*08/15/2018 Stented coronary artery [Z95.5] 08/15/2018 Letter Text Encounter Status:Closed by [employer], PRODUSER on 06/28/20[facility] Consult note Author Jose Hay [facility] Note Date/Time November 30, 2024 4:51 pm [facility] Medical Records Department [address] [place] [address] Consultation - Cardiology 11/30/24 1642 MR#: [id number] Acct: [id number] Name: ERIBERTO RICO Rep #:[id number] : 1945 79 From: Jose Hay MD PCP: Dr. Marycarmen Rodriguez, DO Status:REG ER Location: ED Assessment & Plan Assessment/Plan (1) ST elevation (STEMI) myocardial infarction: PLAN: Emergent coronary angiography revealed subacute stent thrombosis of the proximal right coronary artery. Emergent percutaneous revascularization with balloon angioplasty to the previously deployed stent to the proximal RCA. Thrombus embolization to the right posterior lateral ventricular branch was treated with balloon angioplasty and placement of 2 drug-eluting stents. DEXTER-3flow was restored. Intravascular ultrasound showed excellent apposition of the stent to the proximal right coronary artery. However there is 360 degree arc of heavy calcification of the vessel. Will stop the patient's clopidogrel. Start him onticagrelor. Continue aspirin. (2) Coronary artery disease: PLAN: See #1 above. (3) Essential hypertension: PLAN: Furosemide, losartan and metoprolol. (4) Chronic kidney disease: PLAN: Monitor creatinine. (5) Dyslipidemia: PLAN: Atorvastatin. (6) Diabetes mellitus: HPI Consult Data Date of Consult: 11/30/24 HPI Narrative Reason for Consultation: STEMI HPI Narrative: 79-year-old gentleman with history significant for coronary artery disease. He has had coronary angiography done this last Wednesday which revealed severe in-stent restenosis of a heavily calcified proximal right coronary artery. Percutaneous intervention was performed with shockwave intracoronary lithotripsyand a drug- eluting stent. Per patient, he developed acute chest discomfort earlier this afternoon. Positive nausea and vomiting. EMS was called. An ECG was done in the field. Which showed changes consistent with an acute inferior myocardial infarction. Subsequently a STEMI alert was called. [facility] Medical History (Updated 11/30/24 @ 16:[address] Jose Hay MD) Diabetes mellitus Chronic kidney disease Shortness of breath Unstable angina Fatigue Syncope Left-sided weakness History of COVID-19 Presence of stent in coronary artery (~08/31/22) Dyslipidemia Coronary artery disease Angina pectoris Abnormal PFT [...] kidney disease, stage 3 Atherosclerotic heart disease andreafski coronary artery w/angina pectoris Type 2 diabetes mellitus without complications Hyperlipidemia Obesity Home Medications ?Medication ?Instructions ?Recorded ?Last Taken ?Type aspirin 81 mg tablet,delayed 81 mg PO DAILY@0800 healt h 01/21/17 10/11/23 History release maintenance mirtazapine 15 mg tablet (Remeron) 15 mg PO QHS sleep 09/21/18 10/11/23 History cyanocobalamin (vitamin B-12) 1,000 mcg PO DAILY vitam in ##0 06/01/19 10/11/23 History 1,000 mcg capsule magnesium oxide 400 mg (241.3 mg 800 mg PO DAILY SUPPL EMENT 08/01/21 10/11/23 History magnesium) tablet cetirizine 10 mg tablet 10 mg PO DAILY PRN Allergic 09/16/21 10/11/23 History Reaction cholecalciferol (vitamin D3) [address] 10/11/23 History mcg (1,000 unit) tablet fluoxetine 40 mg capsule 80 mg PO DAILY DEPRESSION 90 days 09/16/21 10/11/23 History #180 caps acetaminophen 325 mg tablet 650 mg PO Q6H PRN Pain 1-1 10/12/23 Unknown History glimepiride 4 mg tablet 4 mg PO QDAY diabetes Unknown History atorvastatin 40 mg tablet 40 mg PO QHS CHOLESTEROL #90 tabs 06/14/24 Unknown Rx clopidogrel 75 mg tablet [address] #90 tabs 0 06/14/24 Unknown Rx losartan 100 mg tablet 100 mg PO DAILY blood pressu re #90 06/14/24 Unknown Rx tabs nitroglycerin 0.4 mg sublingual 0.4 mg sublingual Q5-1 5M PRN CHEST 06/14/24 Unknown Rx tablet PAIN #25 tabs pantoprazole 40 mg tablet,delayed 40 mg PO DAILY GERD #90 tabs 06/14/24 Unknown Rx release potassium chloride 20 mEq 60 meq (3 x 20 mEq) PO BID 0 06/14/24 Unknown Rx tablet,extended release(part/cryst) supplement #180 ta bs spironolactone 50 mg tablet 50 mg PO DAILY diuretic #9 0 tabs 06/14/24 Unknown Rx albuterol sulfate 90 mcg/actuation 2 inh inhalation Q4 -6H PRN 09/20/24 Unknown Rx aerosol inhaler shortness of breath or wheez ing #8.5 grams amlodipine 5 mg tablet 5 mg PO QPM blood pressure 0 10/25/24 Unknown History isosorbide mononitrate 60 mg 60 mg PO BID heart #90 TA BLETS 10/25/24 Unknown Rx tablet,extended release 24 hr metformin 500 mg tablet 500 mg PO QDAY diabetes 10/02 09/24 Unknown History Held on 11/27/24. Instructions: Resume on 11/30/24. metolazone 2.5 mg tablet 2.5 mg PO QDAY diuretic 10/02 09/24 Unknown History metoprolol succinate 25 mg 25 mg PO DAILY blood pressu re #30 10/25/24 Unknown Rx tablet,extended release 24 hr tabs hydrocodone-acetaminophen 5-325mg 1 tab PO TID PRN jennifer n 11/22/24 11/27/24 History 5mg-325mg furosemide 80 mg tablet 80 mg PO DAILY #30 tabs 11/01 12/25 Unknown Rx Allergy/AdvReac Type Severity Reaction Status Date / Time No Known Allergies Allergy Verified 11/26/24 17:43 Family History Father Parkinsons disease Prostate cancer Mother Osteoporosis Surgical History Presence of coronary angioplasty implant and graft (11/27/24) History of tympanostomy tube placement History of percutaneous transluminal coronary angioplasty (08/18/18) History of herniorrhaphy Hx of cholecystectomy History of tonsillectomy History of prostatectomy Social History household members: spouse and none Smoking Status: Former smoker quit date: 05/03/98 pack-years: 50 how long ago did patient quit smokin years ago alcohol intake: never substance use type: does not use caffeine: Yes Type: coffee and tea Number of servings: 6 Physical Exam Narrative Mildly anxious. Obese. Heart sounds 1 and 2 noted. Chest clear to auscultation. Alert oriented x 3. 2+ bilateral lower extremity edema. Risk Stratification Risk Stratification Applicable: No Lab / Micro Data 11/30/24 15:25 11/30/24 15:25 Labs: Laboratory Results - last 24 hr 11/30/24 15:25: WBC 19.2 H, RBC 4.26 L, Hgb 12.5 L, Hct 39.6 L, MCV 93.0, MCH 29.3, MCHC 31.6 L, RDW Std Deviation 45.9 H, RDW Coeff of Adrian 13.5, Plt Count 168, MPV 13.7 H, Immature Gran % (Auto) 0.700, Neut % (Auto) 80.9 H, Lymph % (Auto) 10.1 L, Vernon % (Auto) 7.7, Eos % (Auto) 0.4, Baso % (Auto) 0.2, Absolute Neuts (auto) 15.5 H, Absolute Lymphs (auto) 1.93, Nucleated RBC % 0.1, Sodium 135, Potassium 4.4, Chloride 98, Carbon Dioxide 18.3 L, Anion Gap 19 H, BUN 45 H, Creatinine 3.10 H, Est GFR (MDRD) Non-Af 20 L, BUN/Creatinine Ratio 14.4, Glucose 328 H, Calcium 9.5, Troponin T High Sens 61 H* D Cardiology Labs/Tests 11/30/24 15:25: WBC 19.2 H, RBC 4.26 L, Hgb 12.5 L, Hct 39.6 L, MCV 93.0, MCH 29.3, MCHC 31.6 L, Plt Count 168, MPV 13.7 H, Immature Gran % (Auto) 0.700, Neut% (Auto) 80.9 H, Lymph % (Auto) 10.1 L, Vernon % (Auto) 7.7, Eos % (Auto) 0.4, Baso % (Auto) 0.2, Absolute Neuts (auto) 15.5 H, Nucleated RBC % 0.1, Sodium 135, Potassium 4.4, Chloride 98, Carbon Dioxide 18.3 L, Anion Gap 19 H, BUN 45 H, Creatinine 3.10 H, Est GFR (MDRD) Non-Af 20 L, BUN/Creatinine Ratio 14.4, Glucose 328 H, Calcium 9.5 Rhythm: EKG: ECHO: Stress Test: Cardiac Cath: PCI: CT Surgery: Holter monitor: EPS: PPM: CXR: Chest CT Scan: 11/30/24 1651 <Electronically signed by Jose Hay MD> Cosigner Signature (if applicable): CC: Dr. Jose Hay MD; Dr. Marycarmen Rodriguez DO~ Signed [facility] Work Phone: Discharge summary Author Nickie Danielson [facility] Note Date/Time December 02, 2024 2:2 7pm [facility] Medical Records Department [address] [facility] [place] [address] Discharge Summary 12/02/24 1336 MR#: [id number] Acct: [id number] Name: ERIBERTO RICO Rep #:[id number] : 1945 79 From: Nickie Danielson DO PCP: Dr. Marycarmen Rodriguez DO Status:ADM IN Location: U [id number] Providers Date of Admission: 11/30/24 Date of Discharge: 12/02/24 Primary Care Physician: Dr. Marycarmen Rodriguez DO Consultations 12/01/24 20:19 Consult: Tele-Neurology Routine Consulting Provider: [facility] Reason for Consult: Acute Ischemic Stroke/TIA EMERGENT Consult: No MD Notified: Yes Date Notified: 12/01/24 Time Notified: 21:22 Method of Notification: Answering Service Nursing Unit Staff Notify [facility] of Tele-Neurology Consult: Yes Reason For Visit: STEMI Diagnosis Discharge Diagnosis (1) ST elevation (STEMI) myocardial infarction: Status: Acute Code(s): I21.3 - ST elevation (STEMI) myocardial infarction of unspecified site (2) Acute kidney injury superimposed on stage 4 chronic kidney disease: Status: Acute Code(s): N17.9 - Acute kidney failure, unspecified; N18.4 - Chronic kidney disease, stage4 (severe) (3) Leukocytosis: Status: Acute Code(s): D72.829 - Elevated white blood cell count, unspecified Medications at Discharge Home Medications aspirin 81 mg tablet,delayed release 81 mg PO DAILY@0800 health maintenance 01/21/17 mirtazapine 15 mg tablet (Remeron) 15 mg PO QHS sleep 09/21/18 cyanocobalamin (vitamin B-12) 1,000 mcg capsule 1,000 mcg PO DAILY vitamin ##0 06/01/19 magnesium oxide 400 mg (241.3 mg magnesium) tablet 800 mg PO DAILY SUPPLEMENT 08/01/21 cetirizine 10 mg tablet 10 mg PO DAILY PRN Allergic Reaction 09/16/21 cholecalciferol (vitamin D3) 25 mcg (1,000 unit) tablet [address] 09/16/21 fluoxetine 40 mg capsule 80 mg PO DAILY DEPRESSION 90 days #180 caps 09/16/21 acetaminophen 325 mg tablet 650 mg PO Q6H PRN Pain 1-02/0910/12/23 glimepiride 4 mg tablet 4 mg PO QDAY diabetes 03/20/24 atorvastatin 40 mg tablet 40 mg PO QHS CHOLESTEROL #90 tabs 06/14/24 losartan 100 mg tablet 100 mg PO DAILY blood pressure #90 tabs 06/14/24 Held on 12/02/24. Instructions: Until instructed to restart nitroglycerin 0.4 mg sublingual tablet 0.4 mg sublingual Q5-15M PRN CHEST PAIN #25 tabs 06/14/24 pantoprazole 40 mg tablet,delayed release 40 mg PO DAILY GERD #90 tabs 06/14/24 potassium chloride 20 mEq tablet,extended release(part/cryst) 60 meq (3 x 20 mEq) PO BID supplement #180 tabs 06/14/24 Held on 12/02/24. Instructions: Until instructed to restart spironolactone 50 mg tablet 50 mg PO DAILY diuretic #90 tabs 06/14/24 Held on 12/02/24. Instructions: Resume on 12/04/24. amlodipine 5 mg tablet 5 mg PO QPM blood pressure 10/25/24 isosorbide mononitrate 60 mg tablet,extended release 24 hr 60 mg PO BID heart #90 TABLETS 10/25/24 metolazone 2.5 mg tablet 2.5 mg PO QDAY diuretic 10/25/24 Held on 12/02/24. Instructions: Resume on 12/04/24. metoprolol succinate 25 mg tablet,extended release 24 hr 25 mg PO DAILY blood pressure #30 tabs 10/25/24 hydrocodone-acetaminophen 5-325mg 5mg-325mg 1 tab PO TID PRN pain 11/22/24 furosemide 80 mg tablet 80 mg PO DAILY #30 tabs 11/27/24 Held on 12/02/24. Instructions: Resume on 12/04/24. ticagrelor 90 mg tablet (Brilinta) 90 mg PO BID #60 tabs 12/02/24 Hospital Course Procedures 2-D Echocardiogram, Cardiac catheterization, EKG and - (MRA of the head and neck/CTA brain) Summary of Care Provided Minutes Spent on Discharge: 39 Hospital Course: Patient is a 79-year-old white male [facility]. The patient follows with [facility] on the evening cardiology and has complex coronary disease history. He had stenting done x 2 in the RCA in 2005 and then had 3 in-stent stenosis inthe proximal RCA requiring coronary angioplasty with stenting in 2022. And to an anomalous left circumflex artery. He had recurrent chest pain in October and a stress test on 11/10/2024 that showed Jeovanny infarct ischemia so a heart catheterization was done on 11/27/2024 and showed severe in-stent restenosis of aheavily calcified proximal RCA. PCI was performed with shockwave therapy and intracoronary lithotripsy as well as placement of a drug-eluting stent at that time. The left circumflex stent was patent. He presented on the day of admission with acute chest discomfort, nausea, and vomiting. An EKG was performed and consistent with ST segment elevation myocardial infarction in the inferior wall. He was taken emergency to [facility] and cardiac catheterization revealed subacute stent thrombosis of the proximal RCA. He had emergent percutaneous revascularization with balloon angioplasty to the previously deployed stent but unfortunately had thrombus that embolized to the right posterior lateral ventricle branch which was treated with balloon angioplasty and stent placement of 2 drug-eluting stents with post catheterization DEXTER flow3. He had persistent ST elevation on his EKG. Given the fact that he developedthrombus on Plavix and aspirin he was transition to Brilinta and aspirin. He was noted to have BEVERLY on CKD. His losartan was the be held continually until heis reevaluated by cardiology and we held his Aldactone and Lasix as well as metolazone. They were all held on discharge as well. His diuretics are to be restarted on Wednesday and his losartan is to be held until he is instructed to restart it. We also held his scheduled potassium for the short-term. He will need repeat lab within the next week. On the evening of the first he developed acute onset facial tingling and a stroke team was called. He was taken to CT which showed chronic findings but no acute changes. MRI and MRA were performed and were unremarkable. Neurology was consulted and they feel that this was a stress response related to his cardiac event and not TIA or stroke. Echocardiogram was done and showed mild left ventricular hypertrophy with mild reduced LV function at 50% and basal, mid lateral akinesis as well as basal inferoseptal hypokinesis and basal inferior hypokinesis with grade 1 diastolic dysfunction, mild RV dilation with preserved function and no valvular abnormalities. His only transition in therapy was from Plavix to Brilinta. Medications as above were held but all the medications were the same and no additional medications were given. He did have 1 episode of rectal bleeding after cardiac catheterization this appears to be hemorrhoidal and his hemoglobinwas stable. Patient was feeling well in the afternoon of 12/02/2024 and was anxious to get to his granddaughter's wedding. Patient was cleared by cardiology and neurology for discharge. He is to follow-up with cardiology as instructed after discharge. He was told if he does not hear from their office on Wednesday please call on Wednesday to set up an appointment for post catheterization follow-up. Patient was discharged home in stable condition on 12/02/2024. Prescription for Brilinta was sent to his local pharmacy prior to discharge. Discharge diagnoses: STEMI Facial numbness Leukocytosis Thrombocytopenia Rectal bleeding-resolved BEVERLY on CKD stage IV-improving DM-2 CAD Essential hypertension Hyperlipidemia GERD Chronic pain syndrome Anxiety Depression Insomnia Obesity Physical Exam Narrative Patient states he is feeling well at this time. No chest pain. Anxious to get home for his granddaughter's wedding tonight at 5 PM Const alert, oriented x3, no apparent distress and well nourished; Negative for average body habitus or healthy appearing Constitutional Narrative: Elderly, white male, sitting up in bed, appears comfortable, nontoxic General Appearance: cooperative, comfortable, well kempt and well developed Exam Limitations: no limitations Nutritional Appearance: obese HEENT normocephalic, head/scalp atraumatic and moist oral mucous membranes HEENT Narrative: Mild hearing loss, Mallampati 3, no thrush Eyes EOMs intact bilaterally and conjunctivae normal Eyes Narrative: No scleral icterus Resp normal respiratory effort, normal air movement, no retractions, no use of accessory muscles and clear to auscultation bilaterally Auscultation: Negative for crackles, rhonchi or wheezes Cardio regular rate, regular rhythm, S1 normal heart sound, S2 normal heart sound, no murmurs, no rub, no gallops, no clicks and peripheral pulses 2+ throughout GI normal to inspection, nondistended, normoactive bowel sounds, soft to palpation and non-tender GI Narrative: Large protuberant abdomen Back/Spine normal ROM Extremity normal to inspection, full ROM, no clubbing, cyanosis or edema and no pedal edema Extremity Narrative: 2+ pedal and radial pulses Skin skin turgor normal, no jaundice, no petechiae and no mottling Skin Narrative: Ecchymosis in the right groin status post catheterization, soft and minimal tenderness Neuro oriented x3, moves all extremities and no focal motor deficits Speech: speech normal Psych mental status grossly normal and affect normal Psych Narrative: Interacts appropriately, eye contact is good Weight / BMI Weight Weight: 109.7 kg Body Mass Index (BMI) 35.6 ABG / Lab / Microbiology Data 12/02/24 07:19 12/02/24 07:19 Laboratory: Laboratory Results - last 24 hr 12/01/24 17:01: POC Glucose 153 H 12/01/24 18:21: Hgb 10.6 L, Hct 32.7 L 12/01/24 19:23: POC Glucose 203 H 12/01/24 20:58: POC Glucose 148 H 12/02/24 06:28: POC Glucose 129 H 12/02/24 07:19: WBC 11.2 H, RBC 3.52 L, Hgb 10.4 L, Hct 32.1 L, MCV 91.2, MCH 29.5, MCHC 32.4, RDW Std Deviation 47.4 H, RDW Coeff of Adrian 14.4, Plt Count 113 L, MPV 13.1 H, Immature Gran % (Auto) 0.700, Neut % (Auto) 78.9 H, Lymph % (Auto) 7.6 L, Vernon % (Auto) 12.0 H, Eos % (Auto) 0.7, Baso % (Auto) 0.1, Absolute Neuts (auto) 8.8 H, Absolute Lymphs (auto) 0.85, Nucleated RBC % 0, Sodium 133, Potassium 4.8, Chloride 99, Carbon Dioxide 20.6 L, Anion Gap 14, BUN50 H, Creatinine 2.93 H, Estim Creat Clear Calc 24.95 L, Est GFR (MDRD) Non-Af 21 L, BUN/Creatinine Ratio 17.2, Glucose 138 H, Calcium 9.3 Radiography Diagnostic Testing: Radiology Impression Brain CT 12/01/24 19:30 IMPRESSION: 1. No acute intracranial abnormality. 2. Age-related senescent changes. Reading Location: [facility] [place] [facility] Instructions Discharge Activity: Return to Normal Activity DC O2, CPAP, BIPAP Needs Home O2 Discharge instructions: No DC home with Oxygen: No Meaningful Use Info Meaningful Use Meaningful Use Diagnoses (Choose all that apply): AMI AMI/Post PCI/Angioplasty Aspirin given w/in 24hrs of arrival?: Yes ASA at discharge?: Yes Antiplatelet Therapy at Discharge:: Yes Statins at discharge?: Yes Andrea/ARB at discharge?: No Reason Andrea/ARB not ordered:: Worsening renal dysfunctn Beta Kale at discharge?: Yes Done w/ Acute [place] measure.: Yes Documented LVEF (%): 50 Discharge Plan Admission Admit Date/Time: 11/30/24 16:59 Primary Reason for Your Visit: Chest pain Attending Provider: Nickie Danielson Primary Care Provider: Marycarmen Rodriguez Consulting Providers: Abraham Ridley; Elvis Olvera; Sangeeta Negro; Faye Kingsley; Petrona Vargas; Candice Barlow; Diogenes Sheehan; Cari Shultz; Sherman Rouse; Seymour John; Jamar Tapia; Chrissy Mccallum; Fletcher Good; Sarah Beth Candelaria; Jody Kwon; Arnavmorro Hernandez; Min Rogers; Nick Bernard; Zay Alanis; Kristina Danielson; Ernestina Milan Instructions Additional Instructions / Restrictions: 1. It is very important to not miss any doses of your ticagrelor (Brilinta) andaspirin. Please take these as prescribed with no missed doses. If you miss doses you could clot off your stents. Discharge Orders/Prescriptions Prescriptions: New ticagrelor [Brilinta] 90 mg Tablet 90 mg PO BID Qty: 60 11RF Continued fluoxetine 40 mg capsule 80 mg PO DAILY 90 Days Qty: 180 magnesium oxide 400 mg (241.3 mg magnesium) tablet 800 mg PO DAILY cetirizine 10 mg tablet 10 mg PO DAILY PRN (Reason: Allergic Reaction) cholecalciferol (vitamin D3) 25 mcg (1,000 unit) tablet 25 mcg PO DAILY glimepiride 4 mg tablet 4 mg PO QDAY hydrocodone-acetaminophen 5-325 mg tablet 1 tab PO TID PRN (Reason: pain) amlodipine 5 mg tablet 5 mg PO QPM isosorbide mononitrate 60 mg tablet extended release 24 hr 60 mg PO BID Qty: 90 3RF metoprolol succinate 25 mg tablet extended release 24 hr 25 mg PO DAILY Qty: 30 11RF aspirin 81 MG tablet 81 mg PO DAILY@0800 cyanocobalamin (vitamin B-12) 1,000 MCG capsule 1,000 mcg PO DAILY Qty: 0 acetaminophen 325 MG tablet 650 mg PO Q6H PRN (Reason: Pain 1-02/09) mirtazapine [Remeron] 15 mg tablet 15 mg PO QHS nitroglycerin 0.4 mg tablet, sublingual 0.4 mg SUBLINGUAL Q5-15M PRN (Reason: CHEST PAIN) Qty: 25 3RF atorvastatin 40 mg tablet 40 mg PO QHS Qty: 90 3RF pantoprazole 40 mg tablet,delayed release (DR/EC) 40 mg PO DAILY Qty: 90 3RF Held metolazone 2.5 mg tablet 2.5 mg PO QDAY Hold Instructions: Resume on 12/04/24. furosemide 80 mg Tablet 80 mg PO DAILY Qty: 30 6RF Hold Instructions: Resume on 12/04/24. losartan 100 mg tablet 100 mg PO DAILY Qty: 90 3RF Hold Instructions: Until instructed to restart potassium chloride 20 mEq tablet,ER particles/crystals 60 meq PO BID Qty: 180 3RF Hold Instructions: Until instructed to restart spironolactone 50 mg tablet 50 mg PO DAILY Qty: 90 3RF Hold Instructions: Resume on 12/04/24. Discontinued metformin 500 mg tablet 500 mg PO QDAY clopidogrel 75 mg tablet 75 mg PO DAILY Qty: 90 3RF Referrals / Follow Up: Jose Hay MD [Med Staff - Active Staff] - See Referral Note (If you from theoffice on Wednesday please call on Wednesday morning to schedule a hospital follow-upafter stent placement) Marycarmen Rodriguez DO [Primary Care Provider] - In 1 Week Disposition Disposition (needs filled in before D/C Order can be placed): Home, Self Care Charges/Coding Visit Charges Inpatient E&M: 65547 Disch Hosp >30min 12/02/24 1427 <Electronically signed by Nickie Danielson DO> Cosigner Signature (if applicable): CC: Dr. Jose Hay MD; Dr. Nickie Danielson DO; Dr. Marycarmen Rodriguez DO~ Signed [facility] Work Phone: Evaluation note* Diagnosis Shortness of breath- [facility] DEAN (dyspnea on exertion)- Primary Other dyspnea and respiratory abnormality [facility] DEAN (dyspnea on exertion) Other dyspnea and respiratory abnormality Essential hypertension Unspecified essential hypertension Type 2 diabetes mellitus without complication, without long-term current use of insulin (HCC) MATTHEW (obstructive sleep apnea) Obstructive sleep apnea (adult) (pediatric) Coronary artery disease involving andreafski coronary artery of andreafski heart without angina pectoris [facility] Shortness of [facility] Diagnosis Essential hypertension- Primary Unspecified essential hypertension 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, unspecified whether andreafski or transplanted heart (HCC) Mixed hyperlipidemia [facility] Diagnosis Chest pain, unspecified type- Primary [facility] Diagnosis 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 (HCC)- Primary [facility] Diagnosis Onset Date Resolution Status Dizziness acute Atherosclerotic heart diseas e andreafski coronary artery w/angina pectoris chronic CHF (congestive heart failure) chronic Essential hypertension chron ic History of coronary artery stent placement August 13, 2017 chronic Hyperlipidemia [facility] Work Phone: Evaluation note* Diagnosis Onset Date Resolution Status Dizziness acute Atherosclerotic heart diseas e andreafski coronary artery w/angina pectoris chronic CHF (congestive heart failure) chronic Essential hypertension chron ic History of coronary artery stent placement August 13, 2017 chronic Hyperlipidemia chronic Dizziness acute DEAN (dyspnea on exertion) [place] Palpitations acute CAD (coronary artery disease) chronic CHF (congestive heart failure) chronic Essential hypertension chron ic Hyperlipidemia [facility] Work Phone: Evaluation note* Diagnosis Onset Date Resolution Status Dizziness acute Atherosclerotic heart diseas e andreafski coronary artery w/angina pectoris chronic CHF (congestive heart failure) chronic Essential hypertension chron ic History of coronary artery stent placement August 13, 2017 chronic Hyperlipidemia chronic Dizziness acute DEAN (dyspnea on exertion) [place] Palpitations acute CAD (coronary artery disease) chronic CHF (congestive heart failure) chronic Essential hypertension chron ic Hyperlipidemia chronic DEAN (dyspnea on exertion) [place] CAD (coronary artery disease) chronic CHF (congestive heart failure) chronic Essential hypertension chron ic Hyperlipidemia [facility] Work Phone: Evaluation note* Diagnosis Onset Date Resolution Status Dizziness acute DEAN (dyspnea on exertion) [place] Palpitations acute CAD (coronary artery disease) chronic CHF (congestive heart failure) chronic Essential hypertension chron ic Hyperlipidemia chronic DEAN (dyspnea on exertion) [place] CAD (coronary artery disease) chronic CHF (congestive heart failure) chronic Essential hypertension chron ic Hyperlipidemia [facility] Work Phone: Evaluation note* Diagnosis Onset Date Resolution Status Abnormal PFT acute 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.9) 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 Obstructive sleep apnea 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 COVID-19 acute DEAN (dyspnea on exertion) [place] Atherosclerotic heart diseas e andreafski coronary artery w/angina pectoris chronic CHF (congestive heart failure) chronic Essential hypertension chron ic History of coronary artery stent placement August 13, 2017 chronic Hyperlipidemia chronic Abnormal PFT acute COVID-19 acute 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.9) 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 Obstructive sleep apnea 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 [facility] Work Phone: Evaluation note* Diagnosis Onset Date Resolution Status COVID-19 acute DEAN (dyspnea on exertion) [place] Atherosclerotic heart diseas e andreafski coronary artery w/angina pectoris chronic CHF (congestive heart failure) chronic Essential hypertension chron ic History of coronary artery stent placement August 13, 2017 chronic Hyperlipidemia chronic Abnormal PFT acute COVID-19 acute 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.9) 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 Obstructive sleep apnea 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 [facility] Work Phone: Evaluation note* Diagnosis Onset Date Resolution Status Angina pectoris chronic Chronic kidney disease chron ic Coronary artery disease 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 Diabetes mellitus chronic Dyslipidemia chronic Essential hypertension chron ic Obesity chronic [facility] Work Phone: Evaluation note* Diagnosis Onset Date Resolution Status Angina pectoris chronic Chronic kidney disease chron ic Coronary artery disease 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 Diabetes mellitus chronic Dyslipidemia chronic Essential hypertension chron ic Obesity chronic Left-sided weakness acute Chest pain resolved Fatigue acute Syncope acute Coronary artery disease 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 Dyslipidemia chronic Essential hypertension chron ic [facility] Work Phone: Evaluation note* Diagnosis Onset Date Resolution Status Left-sided weakness acute Chest pain resolved Fatigue acute Syncope acute Coronary artery disease 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 Dyslipidemia chronic Essential hypertension chron ic Angina pectoris chronic Bilateral lower extremity edema chronic Chronic kidney disease, stage 3 chronic Coronary artery disease 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 Essential hypertension chron ic Hyperlipidemia chronic Type 2 diabetes mellitus without complications [facility] Work Phone: Evaluation noteNo assessment information available [facility] Work Phone: Hospital Discharge instructionsAmbulatory Orders* Phase II, Outpatient Cardiac Rehab Location: None Selected [facility] Work Phone: Progress note Author Dr. Hay [facility] September 01, 2022 9:53am Note Date/Time September 01, 2022 9:51am [facility] Medical Records Department [address] [place] [address] [place] [address] Progress Note 09/01/22 0950 MR#: [id number] Acct: [id number] Name: ERIBERTO RICO Rep #:[id number] : 1945 77 From: Jose Hay MD PCP: Dr. Marycarmen Rodriguez, DO Status:ADM EDMUND Location: [place] [address]- Progress Note Reports complete resolution of angina. Denies any complaints today. Right groin stable. No hematoma or bruit. Right radial pulse 2+. Mildly decreased platelet count noted. Repeat CBC in 2 days. Also repeat complete metabolic panel in 2 days. Discharge home. Follow-up as outpatient. 09/01/22 0953 <Electronically signed by Jose Hay MD> Jose Hay MD Cosigner Signature (if applicable): CC: ~ Signed [facility] Work Phone: Reason for referral (narrative)No reason for referral [facility] Work Phone: Assessments Diagnosis MATTHEW (obstructive sleep apnea ) - Primary Obstructive sleep apnea (adult) (pediatric) Coronary artery disease invo lving andreafski coronary artery of andreafski heart without angina pectoris Summary Purpose Family History Relationship Condition Age at Onset Recorded Date/T [...] prostate Unknown mother Osteoporosis Unknown Advance Directives Documents on File Type Date Recorded Patient Environmental 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 Expl anation Advance Directives and Living Will [...] Documents on File Type Date Recorded Patient Environmental 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 Expl anation Advance Directives and Livin g Will 10/04/2020 12:00 AM Documents on File Type Date Recorded Patient Environmental 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 Expl anation Advance Directives and Living Will [...] Documents on File Type Date Recorded Patient Environmental 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 Expl anation Advance Directives and Livin g Will 10/15/2020 12:46 PM Documents on File Type Date Recorded Patient Environmental 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 Expl anation Advance Directives and Livin g Will 10/15/2020 12:46 PM Documents on File Type Date Recorded Patient Environmental 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 Expl anation Advance Directives and Livin g [...] Date/ Time Advance Directives No August 13, 018 7:02am Living Will Yes June 10 4:44pm Power of International Account Representative Yes June 10, 2021 4:44pm Advance Directive Response Recorded Date/ Time Name of Medical Power of International Account Representative Jennie- November 16, 2021 1:06pm Advance Directives No August 13 018 7:02am Living Will Yes November 16, 2021 1:06pm Power of International Account Representative Yes November 16 1:06pm Advance Directive Response Recorded Date/ Time Advance Directives No August 13 018 6:02am Living Will Yes November 16, 2021 12:06pm Power of International Account Representative Yes November 16 12:06pm Advance Directive Response Recorded Date/ Time Advance Directives No August 13 018 7:02am Living Will Yes November 16, 2021 1:06pm Power of International Account Representative Yes November 16 1:06pm Advance Directive Response Recorded Date/ Time Advance Directives on File Yes August 312022 7:47am Name of Medical Power of International Account Representative Mike escalera August 31, 2022 7:47am Advance Directives Yes August 31, 2022 7:47am Living Will Yes August 31, 2022 7: 47am Power of International Account Representative Yes August 31, 2022 7:47am Advance Directive Response Recorded Date/ Time Advance Directives on File Yes August 312022 7:47am Name of Medical Power of International Account Representative Mike escalera August 31, 2022 7:47am Advance Directives Yes August 31, 2022 7:47am Living Will No September 18, 2022 2:11am Power of International Account Representative No September 18, 2022 12:11am Advance Directive Response Recorded Date/ Time Advance Directives on File Yes August 312022 7:47am Name of Medical Power of International Account Representative Mike escalera August 31, 2022 7:47am Advance Directives on File No Augus t 2022 7:51am Name of Medical Power of International Account Representative MIKE RICO December 21, 2022 7:51am Advance Directives Yes December 21, 2022 7:51am Living Will Yes December 21 7:51am Power of International Account Representative Yes December 21 023 7:51am Advance Directive Response Recorded Date/ Time Advance Directives on File No Augus t 2022 7:51am Name of Medical Power of International Account Representative MIKE RICO December 21, 2022 7:51am Advance Directives Yes December 21, 2022 7:51am Living Will Yes December 21 7:51am Power of International Account Representative Yes December 21 2 023 7:51am Advance Directive Response Recorded Date/ Time Advance Directives Yes December 21, 2022 6:51am Living Will Yes December 21 6:51am Power of International Account Representative Yes December 21 2 023 6:51am Advance Directive Response Recorded Date/ Time Living Will No October 12, 2023 6:54pm Power of International Account Representative No October 11 6:54pm Advance Directives Yes December 21, 2022 7:51am Advance Directive Response Recorded Date/ Time Advance Directives Yes December 21, 2022 7:51am Advance Directive Response Recorded Date/ Time Do you have a Healthcare Power of International Account Representative? Yes November 26, 2024 5:44pm Advance Directives Yes December 21, 2022 7:51am Advance Directive Response Recorded Date/ Time Advance Directives on File Yes November 27, 2024 8:44am Living Will Yes November 27, 2024 8:44am Do you have a Healthcare Pow er of International Account Representative? Yes November 27, 2024 8:44am Name of Medical Power of International Account Representative Jennie Bodag er- spouse November 27, 2024 8:44am Advance Directives Yes November 27 8:44am Do you have a Healthcare Pow er of International Account Representative? Yes November 26, 2024 5:44pm Advance Directive Response Recorded Date/ Time Advance Directives on File Yes November 27, 2024 8:44am Living Will Yes November 27, 2024 8:44am Do you have a Healthcare Pow er of International Account Representative? Yes November 27, 2024 8:44am Name of Medical Power of International Account Representative Jennie Popeag er- spouse November 27, 2024 8:44am Advance Directives Yes November 27 8:44am Do you have a Healthcare Pow er of International Account Representative? Yes November 26, 2024 5:44pm Do you have a Healthcare Pow er of International Account Representative? Yes November 30, 2024 5:22pm Reason for Referral Status Reason Specialty Diagnoses / Procedures Referred By Contact Referred To Contact New Request Cardiology Diagnoses Shortness of breath Procedures Echocardiogram complete Eladio Ingram MD [address] [facility] [address] [place] [address] Status Reason Specialty Diagnoses / Procedures Referred By Contact Referred To Contact Closed Cardiology Diagnoses DEAN (dyspnea on exertion) Procedures ECG 12 lead Fernanda Acuña, RESOLUTION MANAGER [address] [place] [address] Specialty Diagnoses / Procedures Referred By Contac t Referred To Contact Radiology Diagnoses 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 LOWER LID LESION RLQ ABD PAIN bleeding from ear, chest pain OVERDUE FOR OV CHEST PAIN CHEST PAIN Reason for Visit Dizziness Atherosclerotic heart disease andreafski coronary artery w/angina pectoris CHF (congestive heart failure) Essential hypertension History of coronary artery stent placement Hyperlipidemia Chief Complaint bleeding from ear, c hest pain OVERDUE FOR OV CHEST PAIN CHEST PAIN 6-8 WK F/U DYSPNEA Reason for Visit Dizziness Atherosclerotic heart disease andreafski coronary artery w/angina pectoris CHF (congestive heart failure) Essential hypertension History of coronary artery stent placement Hyperlipidemia Dizziness DEAN (dyspnea on exertion) Palpitations CAD (coronary artery disease) CHF (congestive heart failure) Essential hypertension Hyperlipidemia Chief Complaint OVERDUE FOR OV CHEST PAIN CHEST PAIN 6-8 WK F/U DYSPNEA Reason for Visit Dizziness Atherosclerotic heart disease andreafski coronary artery w/angina pectoris CHF (congestive heart failure) Essential hypertension History of coronary artery stent placement Hyperlipidemia Dizziness DEAN (dyspnea on exertion) Palpitations CAD (coronary artery disease) CHF (congestive heart failure) Essential hypertension Hyperlipidemia Chief Complaint OVERDUE FOR OV CHEST PAIN CHEST PAIN 6-8 WK F/U DYSPNEA CHEST PAIN 2 M FU E ORDERS Reason for Visit Dizziness Atherosclerotic heart disease andreafski coronary artery w/angina pectoris CHF (congestive heart [...] DEAN (dyspnea on exertion) Atherosclerotic heart disease andreafski coronary artery w/angina pectoris CHF (congestive heart failure) Essential hypertension History of coronary artery stent placement Hyperlipidemia Abnormal PFT COVID-19 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.9) Obstructive sleep apnea Chief Complaint SORE THROAT, COUGH, FEVER, BODY ACHE 5 MO F/U 3 M FU DYSPNEA/SOB Reason for Visit COVID-19 DEAN (dyspnea on exertion) Atherosclerotic heart disease andreafski coronary artery w/angina pectoris CHF (congestive heart [...] CP CVA, CP CVA, CP request by WAITER/WAITRESS TAKE OUT at [place] for angina L.L. E-ORDER SYNCOPE Reason for Visit Angina pectoris Chronic kidney disease Coronary artery disease Diabetes mellitus Dyslipidemia Essential hypertension Obesity Left-sided weakness Chest pain Fatigue Syncope Coronary artery disease Dyslipidemia Essential hypertension Chief Complaint CAD Amb Documentation EKG Coronary artery disease Amb Documentation CVA, CP CVA, CP CP ADMIT CVA, CP CVA, CP CVA, CP CVA, CP request by WAITER/WAITRESS TAKE OUT at [place] for angina L.L. E-ORDER SYNCOPE 2 M [...] CP CVA, CP CVA, CP request by WAITER/WAITRESS TAKE OUT at [place] for angina L.L. E-ORDER SYNCOPE 2 M [...] Presence of stent in coronary artery Honorio 2024 10:53am Shortness of breath November 22, 2024 10:5 3am Bilateral lower extremity edema October 10:53am Chest pain November 22, 2024 10:5 3am Chronic kidney disease, stage 3 October 10:53am Essential hypertension November 22, 2024 1 0:53am Hyperlipidemia November 22, 2024 10:5 3am Obesity November 22, 2024 10:5 3am Type 2 diabetes mellitus without complic ations November 22, 2024 10:53am Chief Complaint Admit Date MATTHEW August 03, [...] WK FU November 22, 2024 10:5 3am chest pain November 26, 2024 5:37 pm Chief Complaint Admit Date MATTHEW August 03, [...] WK FU November 22, 2024 10:5 3am chest pain November 26, 2024 5:37 pm CHEST PAIN November 27, 2024 11:2 4am Referral Order November 27, 2024 6:10 pm Chief Complaint Admit Date MATTHEW August 03, [...] WK FU November 22, 2024 10:5 3am chest pain November 26, 2024 5:37 pm CHEST PAIN November 27, 2024 11:2 4am Referral Order November 27, 2024 6:10 pm stemi November 30, 2024 4:42 pm STEMI November 30, 2024 4:59 pm Reason for Visit Admit Date COPD [...] Presence of stent in coronary artery Honorio 2024 10:53am Shortness of breath November 22, 2024 10:5 3am Bilateral lower extremity edema October 10:53am Chest pain November 22, 2024 10:5 3am Chronic kidney disease, stage 3 October 10:53am Essential hypertension November 22, 2024 1 0:53am Hyperlipidemia November 22, 2024 10:5 3am Obesity November 22, 2024 10:5 3am Type 2 diabetes mellitus without complic ations November 22, 2024 10:53am Diabetes mellitus November 30, 2024 4:[address] elevation (STEMI) myocardial infarcti on November 30, 2024 4:59pm Chest pain November 30, 2024 4:59 pm Chronic kidney disease November 30, 2024 4 :59pm Chronic kidney disease, stage 3 October 4:59pm Coronary artery disease November 30, 2024 4:59pm Dyslipidemia November 30, 2024 4:59 pm Essential hypertension November 30, 2024 4 :59pm Chief Complaint Admit Date 3 M FU September 20, 2024 10:13 [...] WK FU November 22, 2024 10:5 3am chest pain November 26, 2024 5:37 pm CHEST PAIN November 27, 2024 11:2 4am Referral Order November 27, 2024 6:10 pm stemi November 30, 2024 4:42 pm STEMI November 30, 2024 4:59 pm STEMI November 30, 2024 5:05 pm STEMI December 01, 2024 7:1 3am STEMI December 01, 2024 7:3 4am STEMI December 02, 2024 1:3 6pm Reason for Visit Admit Date COPD (chronic [...] Presence of stent in coronary artery Honorio 2024 10:53am Shortness of breath November 22, 2024 10:5 3am Bilateral lower extremity edema October 10:53am Chest pain November 22, 2024 10:5 3am Chronic kidney disease, stage 3 October 10:53am Essential hypertension November 22, 2024 1 0:53am Hyperlipidemia November 22, 2024 10:5 3am Obesity November 22, 2024 10:5 3am Type 2 diabetes mellitus without complic ations November 22, 2024 10:53am Acute kidney injury superimp osed on stage 4 chronic kidney disease November 30, 2024 4:59pm Diabetes mellitus November 30, 2024 4:59 pm Leukocytosis November 30, 2024 4:59 pm STEMI (ST elevation myocardial infarctio n) November 30, 2024 4:59pm Chest pain November 30, 2024 4:59 pm Chronic kidney disease November 30, 2024 4 :59pm Chronic kidney disease, stage 3 October 4:59pm Coronary artery disease November 30, 2024 4:59pm Dyslipidemia November 30, 2024 4:59 pm Essential hypertension November 30, 2024 4 :59pm Additional Source Comments (unrecognized sect ion and content) No Status Records FoundNo Status Records FoundNo Status Records FoundNo Status Records FoundNo Status Records FoundNo Status Records FoundNo Status Records Found INFORMATION SOURCE (unrecogn ized section and content) DATE CREATED AUTHOR 09/24/2018 [facility] DATE CREATED AUTHOR AUTHOR'S ORGANIZ ATION 12/20/2020 [facility] DATE CREATED AUTHOR AUTHOR'S ORGANIZ ATION 01/11/2021 [facility] DATE CREATED AUTHOR AUTHOR'S ORGANIZ ATION 02/28/2021 [facility] DATE CREATED AUTHOR AUTHOR'S ORGANIZ ATION 04/20/2021 [facility] DATE CREATED AUTHOR AUTHOR'S ORGANIZ ATION 06/22/2021 [facility] DATE CREATED AUTHOR AUTHOR'S ORGANIZ ATION 12/02/2024 [facility] Reason for Visit (unrecogniz ed section and content) Reason Comments Chest Pain SOB Status Reason Specialty Diagnoses / Procedures Referred By Contact Referred To Contact Closed Cardiology Diagnoses DEAN (dyspnea on exertion) Procedures ECG 12 lead Fernanda Acuña, RESOLUTION MANAGER [address] [place] [address] Status Reason Specialty Diagnoses / Procedures Referre d By Contact Referred To Contact Closed Cardiology Diagnoses Shortness of breath Procedures Echocardiogram complete w contrast Echocardiogram complete Eladio Ingram MD [address] [facility] [address] [place] [address] Reason Comments Initial Visit (Intake) Specialty Diagnoses / Procedures Referred By Contac t Referred To Contact Cardiology Diagnoses 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 [place] [address] PCP - General Family Medicine 12/17/16 Riveter Hand Relationship Specialty Start Date End Date Marycarmen Rodriguez [facility] [place] [address] PCP - General Family Medicine 12/17/16 Riveter Hand Relationship Specialty Start Date End Date Marycarmen Rodriguez [address] [place], [place] [phone] PCP - General Family Medicine 12/17/16 Riveter Hand Relationship Specialty Start Date End Date Marycarmen Rodriguez DO [address] [place], [place] [phone] PCP - General Family Medicine 12/17/16 Team Status: Active Member Role Status Dates Dr. Marycarmen Rodriguez DO Family Provider Active Marycarmen Rodriguez Primary Care Provider Active Team Status: Inactive Member Role Status Dates Dr. Marycarmen Rodriguez DO Primary Care Provider, Referrin g Provider Active Luz Elena Mckeon WAITER/WAITRESS TAKE OUT, WAITER/WAITRESS TAKE OUT-C Attending Provider Active Team Status: Inactive Member [...] Primary Care Provider Active Luz Elena Mckeon WAITER/WAITRESS TAKE OUT, WAITER/WAITRESS TAKE OUT-C Attending Provider Active Team Status: Inactive Member Role Status Dates Dr. Marycarmen Rodriguez DO Primary Care Provider Active Luz Elena Mckeon WAITER/WAITRESS TAKE OUT, WAITER/WAITRESS TAKE OUT-C Attending Provider, Referring P rovider Active Team [...] Primary Care Provider Active Dr. Pardeep Hall , DO Emergency Provider Active Dr. Alka Leo MD Admit Provider, Other Provider Active Dr. Shaan Santos , DO Attending Provider, Other Provid er Active Team Status: Active Member Role Status Dates Dr. Marycarmen Rodriguez DO Primary Care Provider Active Dr. Aimee Cummins MD Attending Provider Active Team Status: Inactive Member Role Status Dates Dr. Marycarmen Rodriguez DO Primary Care Provider Active Dr. Pardeep Hall , DO Emergency Provider Active Dr. Alka Leo MD Admit Provider, Other Provider Active Dr. Shaan Santos , DO Attending Provider Active Team Status: Active Member Role Status Dates Dr. Marycarmen Rodriguez DO Primary Care Provider Active Luz Elena Mckeon WAITER/WAITRESS TAKE OUT, WAITER/WAITRESS TAKE OUT-C Attending Provider, Referring P rovider Active Team [...] Primary Care Provider Active Luz Elena Mckeon WAITER/WAITRESS TAKE OUT, WAITER/WAITRESS TAKE OUT-C Attending Provider Active Team Status: Inactive Member Role Status Dates Dr. Marycarmen Rodriguez , DO Primary Care Provider, Attendin g Provider Active Team Status: Active Member Role Status Dates Dr. Marycarmen Rodriguez DO Primary Care Provider Active Team Status: Inactive Member Role Status Dates Dr. Marycarmen Rodriguez DO Primary Care Provider Active Start: March 20, 2024 End: March 20, 2024 Dr. aMrycarmen Rodriguez DO Referring Provider Active Start: March [...] 2024 End: April 17, 2024 Gustabo Pérez WAITER/WAITRESS TAKE OUT, WAITER/WAITRESS TAKE OUT-C Attending Provider Active S tart: April 17, 2024 End: April 17, 2024 Team Status: Inactive Member Role Status Dates Dr. Marycarmen Rodriguez DO Primary Care Provider Active Start: April 17, 2024 End: April 17, 2024 Gustabo Pérez WAITER/WAITRESS TAKE OUT, WAITER/WAITRESS TAKE OUT-C Attending Provider Active S tart: April 17, 2024 End: April 17, 2024 Gustabo Pérez WAITER/WAITRESS TAKE OUT, WAITER/WAITRESS TAKE OUT-C Referring Provider Active S tart: April 17, [...] 2024 End: July 03, 2024 Marni Horn WAITER/WAITRESS TAKE OUT, WAITER/WAITRESS TAKE OUT-C Attending Provider Active Start: July 03, 2024 End: July 03, 2024 Team Status: Active Member Role Status Dates Dr. Marycarmen Rodriguez DO Primary Care Provider Active Start: July 07, 2024 Marni Horn WAITER/WAITRESS TAKE OUT, WAITER/WAITRESS TAKE OUT-C Attending Provider Active Start: July 07, 2024 Marni Horn WAITER/WAITRESS TAKE OUT, WAITER/WAITRESS TAKE OUT-C Referring Provider Active Start: July 07, 2024 Team Status: Inactive Member Role Status Dates Dr. Marycarmen Rodriguez DO Primary Care Provider Active Start: July 07, 2024 End: July 07, 2024 Marni Horn WAITER/WAITRESS TAKE OUT, WAITER/WAITRESS TAKE OUT-C Attending Provider Active Start: July 07, 2024 End: July 07, 2024 Marni Horn WAITER/WAITRESS TAKE OUT, WAITER/WAITRESS TAKE OUT-C Referring Provider Active Start: July 07, 2024 End: July 07, 2024 Team Status: Active Member Role Status Dates Dr. Marycarmen Rodriguez DO Primary Care Provider Active Start: July 17, 2024 Marni Horn WAITER/WAITRESS TAKE OUT, WAITER/WAITRESS TAKE OUT-C Attending Provider Active Start: July 17, 2024 Marni Horn WAITER/WAITRESS TAKE OUT, WAITER/WAITRESS TAKE OUT-C Referring Provider Active Start: July 17, 2024 Team Status: Active Member Role Status Dates Dr. Marycarmen Rodriguez DO Primary Care Provider Active Start: July 18, 2024 Marni Horn WAITER/WAITRESS TAKE OUT, WAITER/WAITRESS TAKE OUT-C Attending Provider Active Start: July 18, 2024 Marni Horn WAITER/WAITRESS TAKE OUT, WAITER/WAITRESS TAKE OUT-C Referring Provider Active Start: July 18, 2024 Team Status: Active Member Role Status Dates Dr. Marycarmen Rodriguez DO Primary Care Provider Active Start: July 18, 2024 Marni Horn WAITER/WAITRESS TAKE OUT, WAITER/WAITRESS TAKE OUT-C Referring Provider Active Start: July 18, 2024 Marni Horn WAITER/WAITRESS TAKE OUT, WAITER/WAITRESS TAKE OUT-C Other Provider Active Start: July 18, 2024 Dr. Zen East DO Attending Provider Active S tart: July 18, 2024 Team Status: Inactive Member Role Status Dates Dr. Marycarmen Rodriguez DO Primary Care Provider Active Start: July 17, 2024 End: July 17, 2024 Marni Horn WAITER/WAITRESS TAKE OUT, WAITER/WAITRESS TAKE OUT-C Attending Provider Active Start: July 17, 2024 End: July 17, 2024 Marni Horn WAITER/WAITRESS TAKE OUT, WAITER/WAITRESS TAKE OUT-C Referring Provider Active Start: July 17, 2024 End: July 17, 2024 Team Status: Inactive Member Role Status Dates Dr. Marycarmen Rodriguez DO Primary Care Provider Active Start: July 18, 2024 End: July 18, 2024 Marni Horn WAITER/WAITRESS TAKE OUT, WAITER/WAITRESS TAKE OUT-C Attending Provider Active Start: July 18, 2024 End: July 18, 2024 Marni Horn WAITER/WAITRESS TAKE OUT, WAITER/WAITRESS TAKE OUT-C Referring Provider Active Start: July 18, 2024 End: July 18, 2024 Team Status: Inactive Member Role Status Dates Dr. Marycarmen Rodriguez DO Primary Care Provider Active Start: August 03, 2024 End: August 03, 2024 Marni Horn WAITER/WAITRESS TAKE OUT, WAITER/WAITRESS TAKE OUT-C Attending Provider Active Start: August 03, 2024 End: August 03, 2024 Marni Horn WAITER/WAITRESS TAKE OUT, WAITER/WAITRESS TAKE OUT-C Referring Provider Active Start: August 03, 2024 End: August 03, 2024 Team Status: Inactive Member Role Status Dates Dr. Marycarmen Rodriguez DO Primary Care Provider Active Start: September 20, 2024 End: September 20, 2024 Dr. Marycarmne Rodriguez DO Referring Provider Active Start: September 20, 2024 End: September 20, 2024 Maren Olivas NP-C Attending Provider Active Start: September 20, 2024 End: September 20, 2024 Team Status: Inactive Member Role Status Dates Dr. Marycarmen Rodriguez DO Primary Care Provider Active Start: September 20, 2024 End: September 20, 2024 Maren Olivas WAITER/WAITRESS TAKE OUT-C Attending Provider Active Start: September 20, 2024 End: September 20, 2024 Maren Olivas NP-C Referring Provider Active Start: September 20, 2024 End: September 20, 2024 Team Status: Active Member Role Status Dates Dr. Marycarmen Rodriguez DO Primary Care Provider Active Start: September 22, 2024 Marni Horn NP, WAITER/WAITRESS TAKE OUT-C Attending Provider Active Start: September 22, 2024 Team Status: Inactive Member Role Status Dates Dr. Marycarmen Rodriguez DO Primary Care Provider Active Start: September 22, 2024 End: September 22, 2024 Marni Horn WAITER/WAITRESS TAKE OUT, WAITER/WAITRESS TAKE OUT-C Attending Provider Active Start: September 22, 2024 [...] S tart: July 17, 2024 Marni Horn WAITER/WAITRESS TAKE OUT, WAITER/WAITRESS TAKE OUT-C Referring Provider Active Start: July 17, 2024 Team Status: Inactive Member Role Status Dates Dr. Marycarmen Rodriguez DO Primary Care Provider Active Start: October 18, 2024 End: October 18, 2024 Dr. Brooks Carpenter MD Attending Provider Active Start: October 18, 2024 End: October 18, 2024 Dr. Brooks Carpenter MD Referring Provider Active Start: October 18, 2024 End: October 18, 2024 Gustabo Pérez WAITER/WAITRESS TAKE OUT, WAITER/WAITRESS TAKE OUT-C Other Provider Active Start : October 18, 2024 End: October 18, 2024 Team Status: Active Member Role Status Dates Dr. Marycarmen Rodriguez DO Primary Care Provider Active Start: October 18, 2024 Marni Horn NP, WAITER/WAITRESS TAKE OUT-C Attending Provider Active Start: October 18, 2024 Team Status: Inactive Member Role Status Dates Dr. Marycarmen Rodriguez DO Primary Care Provider Active Start: October 25, 2024 End: October 25, 2024 Dr. Marycarmen Rodriguez DO Referring Provider Active Start: October 25, 2024 End: October 25, 2024 Gustabo Pérez WAITER/WAITRESS TAKE OUT, WAITER/WAITRESS TAKE OUT-C Attending Provider Active S tart: October 25, 2024 End: October 25, 2024 Team Status: Inactive Member Role Status Dates Dr. Marycarmen Rodriguez DO Primary Care Provider Active Start: October 18, 2024 End: October 18, 2024 Marni Horn WAITER/WAITRESS TAKE OUT, WAITER/WAITRESS TAKE OUT-C Attending Provider Active Start: October 18, 2024 [...] 2024 End: July 03, 2024 Marni Horn WAITER/WAITRESS TAKE OUT, WAITER/WAITRESS TAKE OUT-C Attending Provider Active Start: July 03, 2024 End: July 03, 2024 Team Status: Inactive Member Role/Relationship Status Dates Dr. Marycarmen Rodriguez DO Primary Care Provider Active Start: July 07, 2024 End: July 07, 2024 Marni Horn WAITER/WAITRESS TAKE OUT, WAITER/WAITRESS TAKE OUT-C Attending Provider Active Start: July 07, 2024 End: July 07, 2024 Marni oHrn WAITER/WAITRESS TAKE OUT, WAITER/WAITRESS TAKE OUT-C Referring Provider Active Start: July 07, 2024 End: July 07, 2024 Team Status: Inactive Member Role/Relationship Status Dates Dr. Marycarmen Rodriguez DO Primary Care Provider Active Start: July 17, 2024 End: July 17, 2024 Marni Horn WAITER/WAITRESS TAKE OUT, WAITER/WAITRESS TAKE OUT-C Attending Provider Active Start: July 17, 2024 End: July 17, 2024 Marni Horn WAITER/WAITRESS TAKE OUT, WAITER/WAITRESS TAKE OUT-C Referring Provider Active Start: July 17, 2024 End: July 17, 2024 Team Status: Active Member Role/Relationship Status Dates Dr. Marycarmen Rodriguez DO Primary Care Provider Active Start: July 17, 2024 Dr. Zen East DO Attending Provider Active S tart: July 17, 2024 Marni Horn WAITER/WAITRESS TAKE OUT, WAITER/WAITRESS TAKE OUT-C Referring Provider Active Start: July 17, 2024 Team Status: Inactive Member Role/Relationship Status Dates Dr. Marycarmen Rodriguez DO Primary Care Provider Active Start: July 18, 2024 End: July 18, 2024 Marni Horn WAITER/WAITRESS TAKE OUT, WAITER/WAITRESS TAKE OUT-C Attending Provider Active Start: July 18, 2024 End: July 18, 2024 Marni Horn WAITER/WAITRESS TAKE OUT, WAITER/WAITRESS TAKE OUT-C Referring Provider Active Start: July 18, 2024 End: July 18, 2024 Team Status: Active Member Role/Relationship Status Dates Dr. Marycarmen Rodriguez DO Primary Care Provider Active Start: July 18, 2024 Marni Horn WAITER/WAITRESS TAKE OUT, WAITER/WAITRESS TAKE OUT-C Referring Provider Active Start: July 18, 2024 Marni Horn WAITER/WAITRESS TAKE OUT, WAITER/WAITRESS TAKE OUT-C Other Provider Active Start: July 18, 2024 Dr. Zen East DO Attending Provider Active S tart: July 18, 2024 Team Status: Inactive Member Role/Relationship Status Dates Dr. Marycarmen Rodriguez DO Primary Care Provider Active Start: August 03, 2024 End: August 03, 2024 Marni Horn WAITER/WAITRESS TAKE OUT, WAITER/WAITRESS TAKE OUT-C Attending Provider Active Start: August 03, 2024 End: August 03, 2024 Marni Horn WAITER/WAITRESS TAKE OUT, WAITER/WAITRESS TAKE OUT-C Referring Provider Active Start: August 03, 2024 [...] 2024 End: September 22, 2024 Marni Horn NP WAITER/WAITRESS TAKE OUT-C Attending Provider Active Start: September 22, 2024 [...] 2024 End: October 18, 2024 Gustabo Pérez WAITER/WAITRESS TAKE OUT, WAITER/WAITRESS TAKE OUT-C Other Provider Active Start : October 18, 2024 End: October 18, 2024 Team Status: Inactive Member Role/Relationship Status Dates Dr. Marycarmen Rodriguez DO Primary Care Provider Active Start: October 18, 2024 End: October 18, 2024 Marni Horn WAITER/WAITRESS TAKE OUT, WAITER/WAITRESS TAKE OUT-C Attending Provider Active Start: October 18, 2024 End: October 18, 2024 Team Status: Inactive Member Role/Relationship Status Dates Dr. Marycarmen Rodriguez DO Primary Care Provider Active Start: October 25, 2024 End: October 25, 2024 Dr. Marycarmen Rodriguez DO Referring Provider Active Start: October 25, 2024 End: October 25, 2024 Gustabo Pérez WAITER/WAITRESS TAKE OUT, WAITER/WAITRESS TAKE OUT-C Attending Provider Active S tart: October 25, 2024 End: October 25, 2024 Team Status: Active Member Role/Relationship Status Dates Dr. Marycarmen Rodriguez DO Primary Care Provider Active Start: October 26, 2024 Marni Horn WAITER/WAITRESS TAKE OUT, WAITER/WAITRESS TAKE OUT-C Attending Provider Active Start: October 26, 2024 Marni Horn WAITER/WAITRESS TAKE OUT, WAITER/WAITRESS TAKE OUT-C Referring Provider Active Start: October 26, 2024 Team Status: Inactive Member Role/Relationship Status Dates Dr. Marycarmen Rodriguez DO Primary Care Provider Active Start: October 31, 2024 End: October 31, 2024 Dr. Marycarmen Rodriguez DO Referring Provider Active Start: October 31, 2024 End: October 31, 2024 Maren Olivas WAITER/WAITRESS TAKE OUT-C Attending Provider Active Start: October 31, 2024 End: October 31, 2024 Team Status: Inactive Member Role/Relationship Status Dates Dr. Marycarmen Rodriguez DO Primary Care Provider Active Start: October 26, 2024 End: October 26, 2024 Marni Horn WAITER/WAITRESS TAKE OUT, WAITER/WAITRESS TAKE OUT-C Attending Provider Active Start: October 26, 2024 End: October 26, 2024 Marni Horn WAITER/WAITRESS TAKE OUT, WAITER/WAITRESS TAKE OUT-C Referring Provider Active Start: October 26, 2024 End: October 26, 2024 Team Status: Inactive Member Role/Relationship Status Dates Dr. Marycarmen Rodriguez DO Primary Care Provider Active Start: August 03, 2024 End: August 03, 2024 Marni Horn WAITER/WAITRESS TAKE OUT, WAITER/WAITRESS TAKE OUT-C Attending Provider Active Start: August 03, 2024 End: August 03, 2024 Marni Horn NP, WAITER/WAITRESS TAKE OUT-C Referring Provider Active Start: August 03, 2024 End: August 03, 2024 Team Status: Inactive Member Role/Relationship Status Dates Dr. Marycarmen Rodriguez DO Primary Care Provider Active Start: September 20, 2024 End: September 20, 2024 Dr. Marycarmen Rodriguez DO Referring Provider Active Start: September 20, 2024 End: September 20, 2024 Maren Olivas WAITER/WAITRESS TAKE OUT-C Attending Provider Active Start: September 20, 2024 End: September 20, 2024 Team Status: Inactive Member Role/Relationship Status Dates Dr. Marycarmen Rodriguez DO Primary Care Provider Active Start: September 20, 2024 End: September 20, 2024 Maren Olivas NP-C Attending Provider Active Start: September 20, 2024 End: September 20, 2024 Maren Olivas WAITER/WAITRESS TAKE OUT-C Referring Provider Active Start: September 20, 2024 End: September 20, 2024 Team Status: Inactive Member Role/Relationship Status Dates Dr. Marycarmen Rodriguez DO Primary Care Provider Active Start: September 22, 2024 End: September 22, 2024 Marni Horn NP, WAITER/WAITRESS TAKE OUT-C Attending Provider Active Start: September 22, 2024 [...] End: October 18, 2024 Gustabo Pérez NP, WAITER/WAITRESS TAKE OUT-C Other Provider Active Start : October 18, 2024 End: October 18, 2024 Team Status: Inactive Member Role/Relationship Status Dates Dr. Marycarmen Rodriguez DO Primary Care Provider Active Start: October 18, 2024 End: October 18, 2024 Marni Horn WAITER/WAITRESS TAKE OUT, WAITER/WAITRESS TAKE OUT-C Attending Provider Active Start: October 18, 2024 End: October 18, 2024 Team Status: Inactive Member Role/Relationship Status Dates Dr. Marycarmen Rodriguez DO Primary Care Provider Active Start: October 25, 2024 End: October 25, 2024 Dr. Marycarmen Rodriguez DO Referring Provider Active Start: October 25, 2024 End: October 25, 2024 Gustabo Pérez WAITER/WAITRESS TAKE OUT, WAITER/WAITRESS TAKE OUT-C Attending Provider Active S tart: October 25, 2024 End: October 25, 2024 Team Status: Inactive Member Role/Relationship Status Dates Dr. Marycarmen Rodriguez DO Primary Care Provider Active Start: October 26, 2024 End: October 26, 2024 Marni Horn WAITER/WAITRESS TAKE OUT, WAITER/WAITRESS TAKE OUT-C Attending Provider Active Start: October 26, 2024 End: October 26, 2024 Marni Horn WAITER/WAITRESS TAKE OUT, WAITER/WAITRESS TAKE OUT-C Referring Provider Active Start: October 26, 2024 [...] Active Start: November 10, 2024 Gustabo Pérez WAITER/WAITRESS TAKE OUT, WAITER/WAITRESS TAKE OUT-C Attending Provider Active S tart: November 10, 2024 Gustabo Pérez WAITER/WAITRESS TAKE OUT, WAITER/WAITRESS TAKE OUT-C Referring Provider Active S tart: November 10, 2024 Team Status: Active Member Role/Relationship Status Dates Dr. Marycarmen Rodriguez DO Primary Care Provider Active Start: November 10, 2024 Dr. Lance Rodriguez MD Attending Provider Active S tart: November 10, 2024 Gustabo Pérez WAITER/WAITRESS TAKE OUT, WAITER/WAITRESS TAKE OUT-C Referring Provider Active S tart: November 10, [...] Active Start: November 13, 2024 Gustabo Pérez WAITER/WAITRESS TAKE OUT, WAITER/WAITRESS TAKE OUT-C Referring Provider Active S tart: November 13, 2024 Gustabo Pérez WAITER/WAITRESS TAKE OUT, WAITER/WAITRESS TAKE OUT-C Other Provider Active Start : November 13, 2024 Dr. Jose Hay MD Attending Provider Active Start: November 13, 2024 Team Status: Inactive Member Role/Relationship Status Dates Dr. Marycarmen Rodriguez DO Primary Care Provider Active Start: November 10, 2024 End: November 10, 2024 Gustabo Pérez WAITER/WAITRESS TAKE OUT, WAITER/WAITRESS TAKE OUT-C Attending Provider Active S tart: November 10, 2024 End: November 10, 2024 Gustabo Pérez WAITER/WAITRESS TAKE OUT, WAITER/WAITRESS TAKE OUT-C Referring Provider Active S tart: November 10, [...] 2024 End: November 22, 2024 Gustabo Pérez WAITER/WAITRESS TAKE OUT, WAITER/WAITRESS TAKE OUT-C Attending Provider Active S tart: November 22, 2024 End: November 22, 2024 Team Status: Inactive Member Role/Relationship Status Dates Dr. Marycarmen Rodriguez DO Primary Care Provider Active Start: November 20, 2024 End: November 20, 2024 Dr. Brooks Carpenter MD Attending Provider Active Start: November 20, 2024 End: November 20, 2024 Dr. Brooks aCrpenter MD Referring Provider Active Start: November 20, 2024 End: November 20, 2024 Team Status: Active Member Role/Relationship Status Dates Dr. Marycarmen Rodriguez DO Primary Care Provider Active Start: November 22, 2024 Gustabo Pérez WAITER/WAITRESS TAKE OUT, WAITER/WAITRESS TAKE OUT-C Attending Provider Active S tart: November 22, 2024 Gustabo Pérez WAITER/WAITRESS TAKE OUT, WAITER/WAITRESS TAKE OUT-C Referring Provider Active S tart: November 22, 2024 Team Status: Inactive Member Role/Relationship Status Dates Dr. Marycarmen Rodriguez DO Primary Care Provider Active Start: November 26, 2024 End: November 26, 2024 Isael Bernabe MD Emergency Provider Active Star t: November 26, 2024 End: November 26, 2024 Team Status: Active Member Role/Relationship Status Dates Dr. Marycarmen Rodriguez DO Primary Care Provider Active Start: November 27, 2024 Dr. Jose Hay MD Admit Provider Active Star t: November 27, 2024 Dr. Jose Hay MD Attending Provider Active Start: November 27, 2024 Dr. Jose Hay MD Referring Provider Active Start: November 27, 2024 Team Status: Active Member Role/Relationship Status Dates Dr. Marycarmen Rodriguez DO Primary Care Provider Active Start: November 27, 2024 Dr. Jose Hay MD Attending Provider Active Start: November 27, 2024 Team Status: Inactive Member Role/Relationship Status Dates Dr. Marycarmen Rodriguez DO Primary Care Provider Active Start: November 27, 2024 End: November 28, 2024 Dr. Jose Hay MD Admit Provider Active Star t: November 27, 2024 End: November 28, 2024 Dr. Jose Hay MD Attending Provider Active Start: November 27, 2024 End: November 28, 2024 Dr. Jose Hay MD Referring Provider Active Start: November 27, 2024 End: November 28, 2024 Team Status: Inactive Member Role/Relationship Status Dates Dr. Marycarmen Rodriguez DO Primary Care Provider Active Start: November 22, 2024 End: November 22, 2024 Gustabo Pérez WAITER/WAITRESS TAKE OUT, WAITER/WAITRESS TAKE OUT-C Attending Provider Active S tart: November 22, 2024 End: November 22, 2024 Gustabo Pérez WAITER/WAITRESS TAKE OUT, WAITER/WAITRESS TAKE OUT-C Referring Provider Active S tart: November 22, 2024 End: November 22, 2024 Team Status: Active Member Role/Relationship Status Dates Dr. Marycarmen Rodriguez DO Primary Care Provider Active Start: November 30, 2024 Isael Bernabe MD Emergency Provider Active Star t: November 30, 2024 Dr. Jose Hay MD Attending Provider Active Start: November 30, 2024 Dr. Jose Hay MD Referring Provider Active Start: November 30, 2024 Team Status: Active Member Role/Relationship Status Dates Dr. Marycarmen Rodriguez DO Primary Care Provider Active Start: November 30, 2024 Isael Bernabe MD Emergency Provider Active Star t: November 30, 2024 Dr. Jose Hay MD Referring Provider Active Start: November 30, 2024 Dr. Abraham Ridley DO Admit Provider Active Start: November 30, 2024 Dr. Abraham Ridley DO Attending Provider Active Start: November 30, 2024 Team Status: Inactive Member Role/Relationship Status [...] September 20, 2024 End: September 20, 2024 DWAIN CalabreseC Attending Provider Active Start: September 20, 2024 End: September 20, 2024 YRN Calabrese Referring Provider Active Start: September 20, 2024 End: September 20, 2024 Team Status: Inactive Member Role/Relationship Status Dates Dr. Marycarmen Rodriguez DO Primary Care Provider Active Start: September 22, 2024 End: September 22, 2024 Marni Horn WAITER/WAITRESS TAKE OUT, WAITER/WAITRESS TAKE OUT-C Attending Provider Active Start: September 22, 2024 [...] 2024 End: October 18, 2024 Gustabo Pérez WAITER/WAITRESS TAKE OUT, WAITER/WAITRESS TAKE OUT-C Other Provider Active Start : October 18, 2024 End: October 18, 2024 Team Status: Inactive Member Role/Relationship Status Dates Dr. Marycarmen Rodriguez DO Primary Care Provider Active Start: October 18, 2024 End: October 18, 2024 Marni Horn WAITER/WAITRESS TAKE OUT, WAITER/WAITRESS TAKE OUT-C Attending Provider Active Start: October 18, 2024 End: October 18, 2024 Team Status: Inactive Member Role/Relationship Status Dates Dr. Marycarmen Rodriguez DO Primary Care Provider Active Start: October 25, 2024 End: October 25, 2024 Dr. Marycarmen Rodriguez DO Referring Provider Active Start: October 25, 2024 End: October 25, 2024 Gustabo Pérez WAITER/WAITRESS TAKE OUT, WAITER/WAITRESS TAKE OUT-C Attending Provider Active S tart: October 25, 2024 End: October 25, 2024 Team Status: Inactive Member Role/Relationship Status Dates Dr. Marycarmen Rodriguez DO Primary Care Provider Active Start: October 26, 2024 End: October 26, 2024 Marni Horn WAITER/WAITRESS TAKE OUT, WAITER/WAITRESS TAKE OUT-C Attending Provider Active Start: October 26, 2024 End: October 26, 2024 Marni Horn WAITER/WAITRESS TAKE OUT, WAITER/WAITRESS TAKE OUT-C Referring Provider Active Start: October 26, 2024 End: October 26, 2024 Team Status: Inactive Member Role/Relationship Status Dates Dr. Marycarmen Rodriguez DO Primary Care Provider Active Start: October 31, 2024 End: October 31, 2024 Dr. Marycarmen Rodriguez DO Referring Provider Active Start: October 31, 2024 End: October 31, 2024 Maren Olivas WAITER/WAITRESS TAKE OUT-C Attending Provider Active Start: October 31, 2024 End: October 31, 2024 Team Status: Inactive Member Role/Relationship Status Dates Dr. Marycarmen Rodriguez DO Primary Care Provider Active Start: November 09, 2024 End: November 09, 2024 Dr. Marycarmen Rodriguez DO Attending Provider Active Start: November 09, 2024 End: November 09, 2024 Team Status: Inactive Member Role/Relationship Status Dates Dr. Marycarmen Rodriguez DO Primary Care Provider Active Start: November 10, 2024 End: November 10, 2024 Gustabo Pérez WAITER/WAITRESS TAKE OUT, WAITER/WAITRESS TAKE OUT-C Attending Provider Active S tart: November 10, 2024 End: November 10, 2024 Gustabo Pérez WAITER/WAITRESS TAKE OUT, WAITER/WAITRESS TAKE OUT-C Referring Provider Active S tart: November 10, 2024 End: November 10, 2024 Team Status: Active Member Role/Relationship Status Dates Dr. Marycarmen Rodriguez DO Primary Care Provider Active Start: November 10, 2024 Dr. Lance Rodriguez MD Attending Provider Active S tart: November 10, 2024 Gustabo Pérez WAITER/WAITRESS TAKE OUT, WAITER/WAITRESS TAKE OUT-C Referring Provider Active S tart: November 10, 2024 Team Status: Inactive Member [...] Active Start: November 13, 2024 Gustabo Pérez WAITER/WAITRESS TAKE OUT, WAITER/WAITRESS TAKE OUT-C Referring Provider Active S tart: November 13, 2024 Gustabo Pérez WAITER/WAITRESS TAKE OUT, WAITER/WAITRESS TAKE OUT-C Other Provider Active Start : November 13, [...] 2024 End: November 20, 2024 Team Status: Inactive Member Role/Relationship Status Dates Dr. Marycarmen Rodriguez DO Primary Care Provider Active Start: November 22, 2024 End: November 22, 2024 Dr. Marycarmen Rodriguez DO Referring Provider Active Start: November 22, 2024 End: November 22, 2024 Gustabo Pérez WAITER/WAITRESS TAKE OUT, WAITER/WAITRESS TAKE OUT-C Attending Provider Active S tart: November 22, 2024 End: November 22, 2024 Team Status: Inactive Member Role/Relationship Status Dates Dr. Marycarmen Rodriguez DO Primary Care Provider Active Start: November 22, 2024 End: November 22, 2024 Gustabo Pérez WAITER/WAITRESS TAKE OUT, WAITER/WAITRESS TAKE OUT-C Attending Provider Active S tart: November 22, 2024 End: November 22, 2024 Gustabo Pérez WAITER/WAITRESS TAKE OUT, WAITER/WAITRESS TAKE OUT-C Referring Provider Active S tart: November 22, 2024 End: November 22, 2024 Team Status: Inactive Member Role/Relationship Status Dates Dr. Marycarmen Rodriguez DO Primary Care Provider Active Start: November 26, 2024 End: November 26, 2024 Isael Bernabe MD Attending Provider Active Star t: November 26, 2024 End: November 26, 2024 Isael Bernabe MD Emergency Provider Active Star t: November 26, 2024 End: November 26, 2024 Team Status: Inactive Member Role/Relationship Status Dates Dr. Marycarmen Rodriguez DO Primary Care Provider Active Start: November 27, 2024 End: November 28, 2024 Dr. Jose Hay MD Admit Provider Active Star t: November 27, 2024 End: November 28, 2024 Dr. Jose Hay MD Attending Provider Active Start: November 27, 2024 End: November 28, 2024 Dr. Jose Hay MD Referring Provider Active Start: November 27, 2024 End: November 28, 2024 Team Status: Active Member Role/Relationship Status Dates Dr. Marycarmen Rodriguez DO Primary Care Provider Active Start: November 27, 2024 Dr. Jose Hay MD Attending Provider Active Start: November 27, 2024 Team Status: Active Member Role/Relationship Status Dates Dr. Marycarmen Rodriguez DO Primary Care Provider Active Start: November 30, 2024 Isael Bernabe MD Emergency Provider Active Star t: November 30, 2024 Dr. Jose Hay MD Attending Provider Active Start: November 30, 2024 Dr. Jose Hay MD Referring Provider Active Start: November 30, 2024 Team Status: Inactive Member Role/Relationship Status Dates Dr. Marycarmen Rodriguez DO Primary Care Provider Active Start: November 30, 2024 End: December 02, 2024 Isael Bernabe MD Emergency Provider Active Star t: November 30, 2024 End: December 02, 2024 Dr. Jose Hay MD Referring Provider Active Start: November 30, 2024 End: December 02, 2024 Dr. Abraham Ridley DO Admit Provider Active Start: November 30, 2024 End: December 02, 2024 Dr. Abraham Ridley DO Other Provider Active Start: November 30, 2024 End: December 02, 2024 Dr. Nickie Danielson DO Attending Provider Active S tart: November 30, 2024 End: December 02, 2024 Elvis Olevra MD Other Provider Active Start: 2024 End: December 02, 2024 Dr. Sangeeta Negro MD Other Provider Active Start: November 30, 2024 End: December 02, 2024 Faye Kingsley MD Other Provider Active Start : November 30, 2024 End: December 02, 2024 Dr. Petrona Vargas DO Other Provider Active St art: November 30, 2024 End: December 02, 2024 Dr. Candice Barlow MD Other Provider Active Start: November 30, 2024 End: December 02, 2024 Dr. Diogenes Sheehan MD Other Provider Active Sta rt: November 30, 2024 End: December 02, 2024 Dr. Cari Shultz MD Other Provider Active Start : November 30, 2024 End: December 02, 2024 Dr. Sherman Rouse MD Other Provider Active Start: November 30, 2024 End: December 02, 2024 Dr. Seymour John MD Other Provider Active Start : November 30, 2024 End: December 02, 2024 Dr. Jamar Tapia MD Other Provider Active Sta rt: November 30, 2024 End: December 02, 2024 Chrissy Mccallum MD Other Provider Active Start : November 30, 2024 End: December 02, 2024 Dr. Fletcher Good MD Other Provider Active St art: November 30, 2024 End: December 02, 2024 Dr. Sarah Beth Candelaria MD Other Provider Active Start : November 30, 2024 End: December 02, 2024 Dr. Jody Kwon MD Other Provider Active Sta rt: November 30, 2024 End: December 02, 2024 Dr. Fermin José MD Other Provider Active Start: November 30, 2024 End: December 02, 2024 Dr. Min Rogers MD Other Provider Active St art: November 30, 2024 End: December 02, 2024 Dr. Nick Bernard MD Other Provider Active Star t: November 30, 2024 End: December 02, 2024 Dr. Zay Alanis MD Other Provider Active St art: November 30, 2024 End: December 02, 2024 Dr. Kristina Danielson MD Other Provider Active Start: November 30, 2024 End: December 02, 2024 Ernestina Milan MD Other Provider Active Start: November 30, 2024 End: December 02, 2024 Team Status: Active Member Role/Relationship Status Dates Dr. Marycarmen Rodriguez DO Primary Care Provider Active Start: November 30, 2024 Isael Bernabe MD Emergency Provider Active Star t: November 30, 2024 Dr. Jose Hay MD Referring Provider Active Start: November 30, 2024 Dr. Abraham Ridley DO Admit Provider Active Start: November 30, 2024 Dr. Abraham Ridley DO Attending Provider Active Start: November 30, 2024 Dr. Abraham Ridley DO Other Provider Active Start: November 30, 2024 Team Status: Active Member Role/Relationship Status Dates Dr. Marycarmen Rodriguez DO Primary Care Provider Active Start: December 01, 2024 Isael Bernabe MD Emergency Provider Active Star t: December 01, 2024 Dr. Jose Hay MD Referring Provider Active Start: December 01, 2024 Dr. Abraham Ridley , Admit Provider Active Start: December 01, 2024 Dr. Abraham Ridley DO Other Provider Active Start: December 01, 2024 Dr. Nickie Danielson DO Attending Provider Active S tart: December 01, 2024 Dr. Nickie Danielson DO Other Provider Active Start : December 01, 2024 Team Status: Active Member Role/Relationship Status Dates Dr. Marycarmen Rodriguez DO Primary Care Provider Active Start: December 01, 2024 Isael Bernabe MD Emergency Provider Active Star t: December 01, 2024 Dr. Jose Hay MD Referring Provider Active Start: December 01, 2024 Dr. Abraham Ridley DO Admit Provider Active Start: December 01, 2024 Dr. Abraham Ridley DO Other Provider Active Start: December 01, 2024 Dr. Nickie Danielson DO Other Provider Active Start : December 01, 2024 Dr. Marcin Araujo MD Attending Provider Active S tart: December 01, 2024 Team Status: Active Member Role/Relationship Status Dates Dr. Marycarmen Rodriguez DO Primary Care Provider Active Start: December 02, 2024 Isael Bernabe MD Emergency Provider Active Star t: December 02, 2024 Dr. Jose Hay MD Referring Provider Active Start: December 02, 2024 Dr. Abraham Ridley DO Admit Provider Active Start: December 02, 2024 Dr. Abraham Ridley DO Other Provider Active Start: December 02, 2024 Dr. Nickie Danielson DO Attending Provider Active S tart: December 02, 2024 Dr. Nickie Danielson DO Other Provider Active Start : December 02, 2024 Elvis Olvera MD Other Provider Active Start: 2024 Dr. Sangeeta Negro MD Other Provider Active Start: December 02, 2024 Faye Kingsley MD Other Provider Active Start : December 02, 2024 Dr. Petrona Vargas DO Other Provider Active St art: December 02, 2024 Dr. Candice Barlow MD Other Provider Active Start: December 02, 2024 Dr. Diogenes Sheehan MD Other Provider Active Sta rt: December 02, 2024 Dr. Cari Shultz MD Other Provider Active Start : December 02, 2024 Dr. Sherman Rouse MD Other Provider Active Start: December 02, 2024 Dr. Seymour John MD Other Provider Active Start : December 02, 2024 Dr. Jamar Tapia MD Other Provider Active Sta rt: December 02, 2024 Chrissy Mccallum MD Other Provider Active Start : December 02, 2024 Dr. Fletcher Good MD Other Provider Active St art: December 02, 2024 Dr. Sarah Beth Candelaria MD Other Provider Active Start : December 02, 2024 Dr. Jody Kwon MD Other Provider Active Sta rt: December 02, 2024 Dr. Fermin José MD Other Provider Active Start: December 02, 2024 Dr. Min Rogers MD Other Provider Active St art: December 02, 2024 Dr. Nick Bernard MD Other Provider Active Star t: December 02, 2024 Dr. Zay Alanis MD Other Provider Active St art: December 02, 2024 Dr. Kristina Danielson MD Other Provider Active Start: December 02, 2024 Ernestina Milan MD Other Provider Active Start: December 02, 2024 Goals (unrecognized section and content) Goals [...] BE BASED ON THE PRIMARY CLINICAL RECORDS. [facility] [employer] [facility]. provides no warranty or guarantee of the accuracy or completeness of information in this document.
--- OUTSIDE RECORDS SUMMARY | 2024-12-02 20:37 | XMS RPT_ITS | CCD ---
Author Organization [facility] Care Team Providers Care Director Of Planning Name Role Phone Unavailable Unavailable Unavailable Marycarmen Rodriguez DO Primary Care Provider Marycarmen Rodriguez DO Primary Care Provider [phone] MIN HOWARD Referring Unavailable MARYCARMEN RODRIGUEZ Primary [...] Unavailable Dr. Marycarmen Rodriguez Primary Care Provider [phone] Marycarmen Rodriguez Referring Provider Mike PEREA, EFFICIENCY MINER-C Luz Elena Attending Provider Dr. Darnell Corral Attending Provider Mike EFFICIENCY MINER, EFFICIENCY MINER-C Luz Elena Referring Provider Mike EFFICIENCY MINER, EFFICIENCY MINER-C Luz Elena Other Provider Dr. John Palacios Attending Provider Mike EFFICIENCY MINER, EFFICIENCY MINER-C Luz Elena Referring Provider Dr. Marycarmen Rodriguez Primary Care Provider [phone] Dr. Marycarmen Rodriguez Referring Provider Mike EFFICIENCY MINER, ELIAZAR-C Luz Elena Attending Provider Dr. Zen aEst Attending Provider Dr. Marycarmen Rodriguez Primary Care [...] Provider Dr. Alka Leo Admit Provider [phone] Dr. Alka Leo Attending Provider Dr. Alka Leo Other Provider Dr. Shaan Santos Attending Provider Dr. Shaan Santos Other Provider Dr. Aimee Cummins Attending Provider Mike EFFICIENCY MINER, EFFICIENCY MINER-C Luz Elena Attending Provider Adina Vallejo Attending [...] Dr. Marycarmen Rodriguez DO Attending Provider Beto EFFICIENCY MINER-C, Gustabo H Attending Provider Roof EFFICIENCY MINER-C, Gustabo H Referring Provider Justina EFFICIENCY MINER-CMarni Attending Provider Justina EFFICIENCY MINER-CMarni Referring Provider Dr. Marycarmen Rodriguez DO Primary Care Provider Dr. Marycarmen Rodriguez DO Referring Provider Dr. Jose Hay MD Attending Provider Justina EFFICIENCY MINER-CMarni Other Provider Dr. Zen East DO Attending Provider Dr. Marycarmen Rodriguez DO Primary Care Provider Dr. Marycarmen Rodriguez DO Referring Provider Dr. Marycarmen Rodriguez DO Attending Provider Dr. Marycarmen Rodriguez DO Primary Care Provider Dr. Marycarmen Rodriguez DO Referring Provider Brendon EFFICIENCY MINER-C, Maren Clarke Attending Provider Brendon EFFICIENCY MINER-C, Maren Clarke Referring Provider Cruzito CATHERINE, Dr. Zaldivar Attending Provider Pauline PALOMO, Dr. Guy Attending Provider Pauline PALOMO, Dr. Guy Referring Provider Roof EFFICIENCY MINER-C, Gustabo Gao Other Provider Roof EFFICIENCY MINER-C, Gustabo H Attending Provider Jennifer CATHERINE, Dr. Dow Primary Care Provider Jennifer CATHERINE, Dr. Dow Attending Provider Jennifer CATHERINE, Dr. Dow Primary Care Provider Horn EFFICIENCY MINER-C, Marni Attending Provider Horn EFFICIENCY MINER-C, Marni Referring Provider Dr. Marycarmen Rodriguez DO Referring Provider Roof EFFICIENCY MINER-C, Gustabo Gao Referring Provider Jennifer PALOMO, Dr. Lucas Attending Provider Unavailab bear Hay MD, Dr. Garcia Attending Provider Dr. Marycarmen Rodriguez DO Primary Care Provider Horn EFFICIENCY MINER-C, Marni Attending Provider Horn EFFICIENCY MINER-C, Marni Referring Provider Dr. Marycarmen Rodriguez DO Referring Provider Brendon EFFICIENCY MINER-C, Maren Clarke Attending Provider Brendon EFFICIENCY MINER-C, Maren Clarke Referring Provider Dr. Marycarmen Rodriguez DO Attending Provider Pauline PALOMO, Dr. Guy Attending Provider Pauline PALOMO, Dr. Guy Referring Provider Roof EFFICIENCY MINER-C, Gusatbo H Other Provider Roof EFFICIENCY MINER-C, Gustabo H Attending Provider Roof EFFICIENCY MINER-C, Gustabo H Referring Provider Jennifer PALOMO, Dr. Lucas Attending Provider Unavailab le Jose Armando PALOMO, Dr. Garcia Attending Provider Florecita PALOMO, Isael Emergency Provider [phone] Jose Armando PALOMO, Dr. Garcia Admit Provider Jose Armando PALOMO, Dr. Garcia Referring Provider Keyana CATHERINE, Dr. Rosario Admit Provider Dr. Abraham Ridley DO Attending Provider Zen East Attending Unavailable Justina EFFICIENCY MINER, Marni Referring Unavailable Jennifer, Marycarmen Primary Care Unavailable Jose Armando, Jose Referring Unavailable Jennifer, Marycarmen Primary Care Unavailable Nickie Danielson Attending Unavailable Abraham Ridley Consulting Unavailable Abraham Ridley Admitting Unavailable Nickie Danielson Consulting Unavailable Marcin Araujo Attending Unavailable Roof EFFICIENCY MINER, Gustabo Gao Attending Unavailable Jennifer, Marycarmen Referring Unavailable Jennifer, Marycarmen Primary Care Unavailable Jennifer, Marycarmen Primary Care Unavailable Jose Armando, Jose Attending Unavailable Jennifer, Marycarmen Primary Care Unavailable Roof EFFICIENCY MINER, Gustabo Gao Attending Unavailable Jennifer, Marycarmen Referring Unavailable Maren Olivas Attending Unavailable Jennifer, Marycarmen Referring Unavailable Jennifer, Marycarmen Primary Care Unavailable Roof EFFICIENCY MINER, Gustabo Gao Consulting Unavailable Brooks Carpenter Attending Unavailable Brooks Carpenter Referring Unavailable Jennifer, Marycarmen Primary Care Unavailable Jennifer, Marycarmen Attending Unavailable Jennifer, Marycarmen Referring Unavailable Jennifer, Marycarmen Primary Care Unavailable Jennifer, Marycarmen Referring Unavailable Jennifer, Marycarmen Primary Care Unavailable Horn EFFICIENCY MINER, Marni Attending Unavailable Jennifer, Marycarmen Primary Care Unavailable Jennifer, Marycarmen Attending Unavailable Jennifer, Marycarmen Primary Care Unavailable Jose Armando, Jose Referring Unavailable Jose Armando, Jose Admitting Unavailable Jose Armando, Jose Attending Unavailable Isael Bernabe Attending Unavailable Jennifer, Marycarmen Primary Care Unavailable Roof EFFICIENCY MINER, Gustabo H Attending Unavailable Roof EFFICIENCY MINER, Gustabo H Referring Unavailable Jennifer, Marycarmen Primary Care Unavailable Jennifer, Marycarmen Primary Care Unavailable Jennifer, Marycarmen Attending Unavailable Jennifer, Marycarmen Primary Care Unavailable Lance Rodriguez Attending Unavailable Roof EFFICIENCY MINER, Gustabo H Referring Unavailable Jennifer, Marycarmen Primary Care Unavailable Horn EFFICIENCY MINER, Marni Referring Unavailable Horn EFFICIENCY MINER, Marni Attending Unavailable Jennifer, Marycarmen Primary Care Unavailable Roof EFFICIENCY MINER, Gustabo H Referring Unavailable Roof EFFICIENCY MINER, Gustabo H Attending Unavailable Elvis Olvera Consulting Unavailable Adeli, Amir Consulting Unavailable Hindupretty, Faye Consulting Unavailable Sam, Petrona Consulting Unavailable Zha, Candice Consulting Unavailable Sissy, Diogenes Consulting Unavailable Cari Shultz Consulting Unavailable Sherman Rouse Consulting Unavailable Seymour John Consulting Unavailable Jamar Tapia Consulting Unavailable Chrissy Mccallum Consulting Unavailable Fletcher Good Consulting Unavailable Sarah Beth Candealria Consulting Unavailable Jody Kwon Consulting Unavailable Fermin José Consulting UnavailMin Woodruff Consulting Unavailable Nick Bernard Consulting Unavailable Zay Alanis Consulting Unavailable Kristina Danielson Consulting Unavailable Ernestina Milan Consulting Unavailable Jennifer, Marycarmen Primary Care Unavailable Horn EFFICIENCY MINER, Marni Referring Unavailable Horn EFFICIENCY MINER, Marni Attending Unavailable Maren Olivas Attending Unavailable Maren Olivas Referring Unavailable Jennifer, Marycarmen Primary Care Unavailable Jennifer, Marycarmen Attending Unavailable Jennifer, Marycarmen Primary Care Unavailable Jennifer, Marycarmen Primary Care Unavailable Horn EFFICIENCY MINER, Marni Attending Unavailable Horn EFFICIENCY MINER, Marni Attending Unavailable Jennifer, Marycarmen Primary Care Unavailable Jennifer, Marycarmen Primary Care Unavailable Horn EFFICIENCY MINER, Marni Referring Unavailable Horn EFFICIENCY MINER, Marni Attending Unavailable Roof EFFICIENCY MINER, Gustabo H Attending Unavailable Jennifer, Marycarmen Referring Unavailable Jennifer, Marycarmen Primary Care Unavailable Maren Olivas Attending Unavailable Jennifer, Marycarmen Referring Unavailable Jennifer, Marycarmen Primary Care Unavailable Jose ArmandoJose Attending Unavailable Jennifer, Marycarmen Referring Unavailable Jennifer, Marycarmen Primary Care Unavailable Jose ArmandoJose Attending Unavailable Jennifer, Marycarmen Referring Unavailable Jennifer, Marycarmen Primary Care Unavailable Roof EFFICIENCY MINER, Gustabo H Referring Unavailable Roof EFFICIENCY MINER, Gustabo H Consulting Unavailable Jose Hay Attending Unavailable Jennifer, Marycarmen Primary Care Unavailable Jennifer, Marycarmen Primary Care Unavailable Zen East Attending Unavailable Horn EFFICIENCY MINER, Marni Referring Unavailable Horn EFFICIENCY MINER, Marni Consulting Unavailable Jennifer, Marycarmen Primary Care Unavailable Basali, Ayman Attending Unavailable Basali, Ayman Referring Unavailable Jennifer, Marycarmen Primary Care Unavailable Horn EFFICIENCY MINER, Marni Referring Unavailable Horn EFFICIENCY MINER, Marni Attending Unavailable Roof EFFICIENCY MINER, Gustabo H Referring Unavailable Roof EFFICIENCY MINER, Gustabo H Attending Unavailable Jennifer, Marycarmen Primary Care Unavailable Horn EFFICIENCY MINER, Marni Referring Unavailable Jennifer, Marycarmen Primary Care Unavailable Horn EFFICIENCY MINER, Marni Attending Unavailable RufenerMaren M Attending Unavailable RufenerMaren M Referring Unavailable Jennifer, Marycarmen Primary Care Unavailable Jose Armando, Jose Referring Unavailable Jose Armando, Jose Attending Unavailable Jennifer, Marycarmen Primary Care Unavailable Abraham Ridley Attending Unavailable Dr. Marycarmen Rodriguez DO Primary Care Provider [phone] Horn EFFICIENCY MINER-C, Marni Attending Provider Horn EFFICIENCY MINER-C, Marni Referring Provider Isael Bernabe MD Attending Provider Dr. Abraham Ridley DO Other Provider Dr. Nickie Danielson DO Attending Provider Elvis Olvera MD Other Provider Unavailable Marky PALOMO, Dr. Rutherford Other Provider [phone] Faye Kingsley MD Other Provider Unavailable Dr. Petrona Vargas DO Other Provider Dr. Candice Barlow MD Other Provider [phone] Diogenes Sheehan MD Other Provider Dr. Cari Shultz MD Other Provider [phone] Sherman Rouse MD Other Provider [phone] Seymour John MD Other Provider [phone] Willie PALOMO, Dr. Roldan Other Provider Chrissy Mccalulm MD Other Provider Florentino PALOMO, Dr. Bynum Other Provider [phone] Bari PALOMO, Dr. Burleson Other Provider Cher PALOMO, Dr. Vera Other Provider Arnav PALOMO, Dr. Fermin Hernandez Other Provider Ken PALOMO, Dr. Alvarado Other Provider Joana PALOMO, Dr. Romero Other Provider Annabelle PALOMO, Dr. Collazo Other Provider Jagjit PALOMO, Dr. Acevedo Other Provider Unavailable Kayli PALOMO, Ernestina Other Provider Unavailable Dr. Abraham Ridley DO Attending Provider Dr. Nickie Danielson DO Other Provider Gayle PALOMO, Dr. 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 Procedure aborted. 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-AICH-Yw and Stent-Mid RCA x 2 Multi Link [...] Auto (Unsp spec) [#/Vol] 0.85 10*3/uL 0.83-4.51 [facility] Anion gap in Serum or Plasma Ordered By: Nickie Danielson on 12-02-2024 Anion gap [Moles/Vol] 14 mmol/L 5-15 [facility] Automated lymphocyte count a s percentage of total leukocytesOrdered By: Nickie Danielson on 12-02-2024 Lymphocytes/100 WBC Auto (Unsp spec) 7.6 % Low 19-41 [facility] BUN/creatinine ratioOrdered By: Nickie Danielson on 12-02-2024 Urea nitrogen/Creatinine [Mass ratio] 17.2 mg/mg 10-20 [facility] Basophil percentageOrdered B y: Nickie Danielson on 12-02-2024 Basophils/100 WBC (Bld) 0.1 % 0-1 [facility] Bedside Glucoseon 12-02-2024 FINGERSTICK GLU 129 mg/dL High 74-106 [facility] Comment on above: Result Comment: WILDA GEMENT OF PATIENT CARE PER NURSING PROTOCOL Performed By: #### L 501.080 ####[facility] [address] [place], [address] Carbon dioxide, total [Moles /volume] in Central venous bloodOrdered By: Nickie Danielson on 12-02-2024 CO2 [Moles/Vol] 20.6 mmol/L Low 21.0-32.0 [facility] Chloride assayOrdered By: Korina Danielson on 12-02-2024 Chloride [Moles/Vol] 99 mmol/L 98-108 [facility] Eosinophil percentageOrdered By: Nickie Danielson on 12-02-2024 Eosinophils/100 WBC (Bld) 0.7 % 0-5 [facility] Erythrocyte distribution wid th ratioOrdered By: Nickie Danielson on 12-02-2024 Erythrocyte distribution width (RBC) [Ratio] 14.4 % 11.6-14.6 [facility] Erythrocyte distribution wid th standard deviationOrdered By: Nickie Danielson on 12-02-2024 Erythrocyte distribution width (RBC) [Ratio] 47.4 fl High 35.1-43.9 [facility] Glomerular filtration rate ( GFR) estimation/1.73 sq m using serum, plasma, or whole bOrdered By: Nickie Danielson on 12-02-2024 GFR/1.73 sq M.predicted among non-blacks MDRD (S/P/Bld) [Vol rate/Area] 21 mL/min/{1.73_m2} Low >60 [facility] deOrdered By: Nickie Danielson on 12-02-2024 Glucose [Mass/Vol] 129 mg/dL High 74-106 [facility] Hematocrit Auto (Bld) [Volum e fraction]Ordered By: Nickie Danielson on 12-02-2024 Hematocrit (Bld) [Volume fraction] 32.1 % Low 40-54 [facility] Hemoglobin measurementOrdere d By: Nickie Danielson on 12-02-2024 Hemoglobin (Bld) [Mass/Vol] 10.4 g/dL Low 13.0-16.5 [facility] Immature granulocytes/100 WB C Auto (Bld)Ordered By: Nickie Danielson on 12-02-2024 Immature granulocytes/100 WBC (Bld) 0.700 % 0.0-0.9 [facility] MCV (mean corpuscular volume ) determinationOrdered By: Nickie Danielson on 12-02-2024 MCV (RBC) [Entitic vol] 91.2 fL 80-94 [facility] Magnetic resonance imaging r eportOrdered By: Nghia Waters on 12-02-2024 Study report [facility] Mean corpuscular hemoglobin (MCH) determinationOrdered By: Nickie Danielson on 12-02-2024 MCH (RBC) [Entitic mass] 29.5 pg 27.0-32.0 [facility] Monocyte percentageOrdered B y: Nickie Danielson on 12-02-2024 Monocytes/100 WBC (Bld) 12.0 % High 0-10 [facility] Neutrophil percentageOrdered By: Nickie Danileson on 12-02-2024 Neutrophils/100 WBC (Bld) 78.9 % High 47-70 [facility] Platelet countOrdered By: Korina Danielson on 12-02-2024 Platelets (Bld) [#/Vol] 113 10*3/uL Low 150-450 [facility] Potassium measurement (mass/ volume)Ordered By: Nickie Danielson on 12-02-2024 Potassium (Unsp spec) [Mass/Vol] 4.8 mmol/L 3.3-5.1 [facility] RBC Auto (Bld) [#/Vol]Ordere d By: Nickie Danielson on 12-02-2024 RBC (Bld) [#/Vol] 3.52 10*6/uL Low 4.6-6.2 [facility] Serum creatinine measurement (mass/volume)Ordered By: Nickie Danielson on 12-02-2024 Creatinine [Mass/Vol] 2.93 mg/dL High 0.70-1.20 [facility] Serum glucose measurement (m ass/volume)Ordered By: Nickie Danielson on 12-02-2024 Glucose [Mass/Vol] 138 mg/dL High 70-99 [facility] Serum or plasma calcium francine urement (mass/volume)Ordered By: Nickie Danielson on 12-02-2024 Calcium [Mass/Vol] 9.3 mg/dL 7.6-11.0 [facility] Serum or plasma urea nitroge n measurement (mass/volume)Ordered By: Nickie Danielson on 12-02-2024 Urea nitrogen [Mass/Vol] 50 mg/dL High 4-19 [facility] Sodium levelOrdered By: Johanna Danielson on 12-02-2024 Sodium [Moles/Vol] 133 mmol/L 133-145 [facility] White blood cell (WBC) count Ordered By: Nickie Danielson on 12-02-2024 WBC (Bld) [#/Vol] 11.2 10*3/uL High 4.4-11.0 [facility] 12 Lead EKGon 12-01-2024 12 Lead EKG Normal [facility] Bedside Glucoseon 12-01-2024 FINGERSTICK GLU 148 mg/dL High 74-106 [facility] Comment on above: Result Comment: WILDA GEMENT OF PATIENT CARE PER NURSING PROTOCOL Performed By: #### L 501.080 ####[facility] [address] [place], [address] FINGERSTICK GLU 203 mg/dL High 74-106 [facility] Comment on above: Result Comment: WILDA GEMENT OF PATIENT CARE PER NURSING PROTOCOL Performed By: #### L 501.080 ####[facility] [address] [place], [address] FINGERSTICK GLU 153 mg/dL High 74-106 [facility] Comment on above: Result Comment: WILDA GEMENT OF PATIENT CARE PER NURSING PROTOCOL Performed By: #### L 501.080 ####[facility] [address] [place], [address] FINGERSTICK GLU 187 mg/dL High 74-106 [facility] Comment on above: Result Comment: WILDA GEMENT OF PATIENT CARE PER NURSING PROTOCOL Performed By: #### L 501.080 ####[facility] [address] [place], [address] FINGERSTICK GLU 223 mg/dL High -106 [facility] Comment on above: Result Comment: WILDA GEMENT OF PATIENT CARE PER NURSING PROTOCOL Performed By: #### L 501.080 ####[facility] [address] [place], [address] Bilirubin, totalOrdered By: Jose Hay on 12-01-2024 Bilirubin [Mass/Vol] 1.07 mg/dL 0.00-1.30 [facility] CBC-Complete Blood Cnt No Di ffon 12-01-2024 Erythrocyte distribution width (RBC) [Ratio] 14.0 % Normal 11.6-14.6 [facility] Comment on above: Performed By: #### L 100.0500, L500.4050 ####[facility] [address] [place], [address] Hematocrit (Bld) [Volume fraction] 33.2 % Low 40-54 [facility] Comment on above: Performed By: #### L 100.0500, L500.4050 ####[facility] [address] [place], [address] Hemoglobin (Bld) [Mass/Vol] 10.8 g/dL Low 13.0-16.5 [facility] Comment on above: Performed By: #### L 100.0500, L500.4050 ####[facility] [address] [place], [address] MCH (RBC) [Entitic mass] 29.3 pg Normal 27.0-32.0 [facility] Comment on above: Performed By: #### L 100.0500, L500.4050 ####[facility] [address] [place], [address] MCHC (RBC) [Mass/Vol] 32.5 g/dL Normal 32-36 [facility] Comment on above: Performed By: #### L 100.0500, L500.4050 ####[facility] [address] [place], [address] MCV (RBC) [Entitic vol] 90.2 fL Normal 80-94 [facility] Comment on above: Performed By: #### L 100.0500, L500.4050 ####[facility] [address] [place], [address] Platelet mean volume (Bld) [Entitic vol] 12.7 fL High 6.2-12.0 [facility] Comment on above: Performed By: #### L 100.0500, L500.4050 ####[facility] [address] [place], [address] Platelets (Bld) [#/Vol] 142 10*3/uL Low 150-450 [facility] Comment on above: Performed By: #### L 100.0500, [id number] ####[facility] [address] [place], [address] RBC (Bld) [#/Vol] 3.68 10*6/uL Low 4.6-6.2 [facility] Comment on above: Performed By: #### L 100.0500, [id number] ####[facility] [address] [place], [address] RDW SD 45.8 fl High 35.1-43.9 [facility] Comment on above: Performed By: #### L 100.0500, L500.4050 ####[facility] [address] [place], [address] WBC (Bld) [#/Vol] 14.6 10*3/uL High 4.4-11.0 [facility] Comment on above: Performed By: #### L 100.0500, L500.4050 ####[facility] [address] [place], [address] Cardiac rehabilitation repor tOrdered By: Natacha Fermin on 12-01-2024 Study report [facility] Comprehensive Metabolic Prof ilon 12-01-2024 Albumin [Mass/Vol] 3.7 g/dL Normal 3.4-4.8 [facility] Comment on above: Performed By: #### L 100.0500, L500.4050 ####[facility] [address] [place], [address] Albumin/Globulin [Mass ratio] 1.5 {ratio} Normal 0.9-2.4 [facility] Comment on above: Performed By: #### L 100.0500, [id number] ####[facility] [address] [place], [address] ALK PHOS 82 U/L Normal 40-129 [facility] Comment on above: Performed By: #### L 100.0500, L500.4050 ####[facility] [address] [place], [address] ALT [Catalytic activity/Vol] 77 U/L High <=46 [facility] Comment on above: Performed By: #### L 100.0500, L500.4050 ####[facility] [address] [place], [address] AST [Catalytic activity/Vol] 497 U/L High <=37 [facility] Comment on above: Performed By: #### L 100.0500, L500.4050 ####[facility] [address] [place], [address] Bilirubin [Mass/Vol] 1.07 mg/dL Normal 0.00-1.30 [facility] Comment on above: Performed By: #### L 100.0500, L500.4050 ####[facility] [address] [place], [address] BUN/CRE 14.2 RATIO Normal 10-20 [facility] Comment on above: Performed By: #### L 100.0500, [id number] ####[facility] [address] [place], [address] Calcium [Mass/Vol] 8.7 mg/dL Normal 7.6-11.0 [facility] Comment on above: Performed By: #### L 100.0500, [id number] ####[facility] [address] [place], [address] Chloride [Moles/Vol] 100 mmol/L Normal 98-108 [facility] Comment on above: Performed By: #### L 100.0500, [id number] ####[facility] [address] [place], [address] CO2 [Moles/Vol] 20.3 mmol/L Low 21.0-32.0 [facility] Comment on above: Performed By: #### L 100.0500, [id number] ####[facility] [address] [place], [address] Creatinine [Mass/Vol] 3.16 mg/dL High 0.70-1.20 [facility] Comment on above: Performed By: #### L 100.0500, L500.4050 ####[facility] [address] [place], [address] ECRCL 23.23 ml/min Low 50-250 [facility] Comment on above: Performed By: #### L 100.0500, [id number] ####[facility] [address] [place], [address] GAP 14 Normal 5-15 [facility] Comment on above: Performed By: #### L 100.0500, L500.4050 ####[facility] [address] [place], [address] GFR/1.73 sq M.predicted among non-blacks MDRD (S/P/Bld) [Vol rate/Area] 19 mL/min/{1.73_m2} Low >60 [facility] Comment on above: Result Comment: mL/m in/1.73m2 CKD-EPI Creatinine Equation (2020) Performed By: #### L 100.0500, L500.4050 ####[facility] [address] [place], [address] Globulin (S) [Mass/Vol] 2.4 g/dL Normal 2.2-4.2 [facility] Comment on above: Performed By: #### L 100.0500, L500.4050 ####[facility] [address] [place], [place], [id number] Glucose [Mass/Vol] 157 mg/dL High 70-99 [facility] Comment on above: Performed By: #### L 100.0500, L500.4050 ####[facility] [address] [place], [address] Potassium [Moles/Vol] 5.0 mmol/L Normal 3.3-5.1 [facility] Comment on above: Performed By: #### L 100.0500, L500.4050 ####[facility] [address] [place], [address] Sodium [Moles/Vol] 134 mmol/L Normal 133-145 [facility] Comment on above: Performed By: #### L 100.0500, L500.4050 ####[facility] [address] [place], [address] T PROT 6.0 g/dL Normal 5.9-8.4 [facility] Comment on above: Performed By: #### L 100.0500, L500.4050 ####[facility] [address] [place], [address] Urea nitrogen [Mass/Vol] 45 mg/dL High 4-19 [facility] Comment on above: Performed By: #### L 100.0500, L500.4050 ####[facility] [address] [place], [address] Echo Limited w/Contraston Echo Limited w/Contrast Normal [facility] Electrocardiogram reportOrde red By: Marcin Araujo on 12-01-2024 EKG study [facility] Work Phone: HH, Hemoglobin AND Hematocri ton 12-01-2024 Hematocrit (Bld) [Volume fraction] 32.7 % Low 40-54 [facility] Comment on above: Performed By: #### L 100.0600 ####[facility] [address] [place], [address] Hemoglobin (Bld) [Mass/Vol] 10.6 g/dL Low 13.0-16.5 [facility] Comment on above: Performed By: #### L 100.0600 ####[facility] [address] [place], [address] Limited echocardiogram repor tOrdered By: Lance Espino on 12-01-2024 Study report [facility] Other Phone: No Panel InformationOrdered By: Jose Hay on 12-01-2024 497 U/L High <38 [facility] STROKE Brain/Head without Co nton 12-01-2024 STROKE Brain/Head without Cont Normal [facility] Serum globulin measurementOr dered By: Jose Hay on 12-01-2024 Globulin (S) [Mass/Vol] 2.4 g/dL 2.2-4.2 [facility] Serum or plasma alanine guerrero otransferase (ALT) measurementOrdered By: Jose Hay on 12-01-2024 ALT [Catalytic activity/Vol] 77 U/L High <47 [facility] Serum or plasma albumin francine urement (mass/volume)Ordered By: Jose Hay on 12-01-2024 Albumin [Mass/Vol] 3.7 g/dL 3.4-4.8 [facility] Serum or plasma albumin/glob ulin mass ratioOrdered By: Jose Hay on 12-01-2024 Albumin/Globulin [Mass ratio] 1.5 {ratio} 0.9-2.4 [facility] Serum or plasma alkaline bell sphatase measurementOrdered By: Jose Hay on 12-01-2024 ALP [Catalytic activity/Vol] 82 U/L 40-129 [facility] Total proteinOrdered By: Emmanuel Hay on 12-01-2024 Protein [Mass/Vol] 6.0 g/dL 5.9-8.4 [facility] ACT Activated Clotting Timeo n 11-30-2024 ACTk CLOT TIME 187 sec High 74-137 [facility] Comment on above: Performed By: #### L 9100.0100 ####[facility] [address] [facility] [place], [place], [id number] ACTk CLOT TIME 176 sec High 74-137 [facility] Comment on above: Performed By: #### L 9100.0100 ####[facility] [address] [facility]. [place], [place], [id number] Absolute lymphocyte countOrd ered By: Isael Bernabe on 11-30-2024 Lymphocytes Auto (Unsp spec) [#/Vol] 1.93 10*3/uL 0.83-4.51 [facility] Activated partial thrombopla stin time (aPTT) in platelet poor plasma by coagulation aOrdered By: Isael Bernabe on 11-30-2024 aPTT Coag (PPP) [Time] 112.9 s High 24.1-36.2 [facility] Anion gap in Serum or Plasma Ordered By: Isael Bernabe on 11-30-2024 Anion gap [Moles/Vol] 19 mmol/L High 5-15 [facility] Automated lymphocyte count a s percentage of total leukocytesOrdered By: Isael Bernabe on 11-30-2024 Lymphocytes/100 WBC Auto (Unsp spec) 10.1 % Low 19-41 [facility] BUN/creatinine ratioOrdered By: Isael Bernabe on 11-30-2024 Urea nitrogen/Creatinine [Mass ratio] 14.4 mg/mg 10- [facility] Basic Metabolic Profile (BMP )on 11-30-2024 BUN/CRE 14.4 RATIO Normal - [facility] Comment on above: Performed By: #### L 501.4021, L300.3900, L300.4310, L100.0100, L500.2500 ####[facility] [address] [place], [address] Calcium [Mass/Vol] 9.5 mg/dL Normal 7.6-11.0 [facility] Comment on above: Performed By: #### L 501.4021, L300.3900, L300.4310, L100.0100, L500.2500 ####[facility] [address] [place], [address] Chloride [Moles/Vol] 98 mmol/L Normal 98-108 [facility] Comment on above: Performed By: #### L 501.4021, L300.3900, L300.4310, L100.0100, L500.2500 ####[facility] [address] [place], [address] CO2 [Moles/Vol] 18.3 mmol/L Low 21.0-32.0 [facility] Comment on above: Performed By: #### L 501.4021, L300.3900, L300.4310, L100.0100, L500.2500 ####[facility] [address] [place], [address] Creatinine [Mass/Vol] 3.10 mg/dL High 0.70-1.20 [facility] Comment on above: Performed By: #### L 501.4021, L300.3900, L300.4310, L100.0100, L500.2500 ####[facility] [address] [place], [address] GAP 19 High 5-15 [facility] Comment on above: Performed By: #### L 501.4021, L300.3900, L300.4310, L100.0100, L500.2500 ####[facility] [address] [place], [address] GFR/1.73 sq M.predicted among non-blacks MDRD (S/P/Bld) [Vol rate/Area] 20 mL/min/{1.73_m2} Low >60 [facility] Comment on above: Result Comment: mL/m in/1.73m2 CKD-EPI Creatinine Equation (2020) Performed By: #### L 501.4021, L300.3900, L300.4310, L100.0100, L500.2500 ####[facility] [address] [place], [address] Glucose [Mass/Vol] 328 mg/dL High 70-99 [facility] Comment on above: Performed By: #### L 501.4021, L300.3900, L300.4310, L100.0100, L500.2500 ####[facility] [address] [place], [address] Potassium [Moles/Vol] 4.4 mmol/L Normal 3.3-5.1 [facility] Comment on above: Performed By: #### L 501.4021, L300.3900, L300.4310, L100.0100, L500.2500 ####[facility] [address] [place], [address] Sodium [Moles/Vol] 135 mmol/L Normal 133-145 [facility] Comment on above: Performed By: #### L 501.4021, L300.3900, L300.4310, L100.0100, L500.2500 ####[facility] [address] [place], [address] Urea nitrogen [Mass/Vol] 45 mg/dL High 4-19 [facility] Comment on above: Performed By: #### L 501.4021, L300.3900, L300.4310, L100.0100, L500.2500 ####[facility] [address] [place], [address] Basophil percentageOrdered B y: Isael Bernabe on 11-30-2024 Basophils/100 WBC (Bld) 0.2 % 0-1 [facility] Bedside Glucoseon 11-30-2024 FINGERSTICK GLU 167 mg/dL High 74-106 [facility] Comment on above: Result Comment: WILDA BARROSO OF PATIENT CARE PER NURSING PROTOCOL Performed By: #### L 501.080 ####[facility] [address] [place], [address] CBC W/Diff, Automatedon 11-02 Absolute Lymph 1.93 X10 3/uL Normal 0.83-4.51 [facility] Comment on above: Performed By: #### L 501.4021, L300.3900, L300.4310, L100.0100, L500.2500 ####[facility] [address] [place], [address] Absolute Neut 15.5 X10 3/uL High 2.0-7.7 [facility] Comment on above: Performed By: #### L 501.4021, L300.3900, L300.4310, L100.0100, L500.2500 ####[facility] [address] [place], [address] Basophils/100 WBC (Bld) 0.2 % Normal 0-1 [facility] Comment on above: Performed By: #### L 501.4021, L300.3900, L300.4310, L100.0100, L500.2500 ####[facility] [address] [place], [address] Eosinophils/100 WBC (Bld) 0.4 % Normal 0-5 [facility] Comment on above: Performed By: #### L 501.4021, L300.3900, L300.4310, L100.0100, L500.2500 ####[facility] [address] [place], [address] Erythrocyte distribution width (RBC) [Ratio] 13.5 % Normal 11.6-14.6 [facility] Comment on above: Performed By: #### L 501.4021, L300.3900, L300.4310, L100.0100, L500.2500 ####[facility] [address] [place], [address] Hematocrit (Bld) [Volume fraction] 39.6 % Low 40-54 [facility] Comment on above: Performed By: #### L 501.4021, L300.3900, L300.4310, L100.0100, L500.2500 ####[facility] [address] [place], [address] Hemoglobin (Bld) [Mass/Vol] 12.5 g/dL Low 13.0-16.5 [facility] Comment on above: Performed By: #### L 501.4021, L300.3900, L300.4310, L100.0100, L500.2500 ####[facility] [address] [place], [address] IG% 0.700 Normal 0.0-0.9 [facility] Comment on above: Result Comment: IG% - Immature Granulocytes (promyelocytes, myelocytes andmetamyelocytes) > 1% indicates that a LEFT SHIFT is Present. Performed By: #### L 501.4021, L300.3900, L300.4310, L100.0100, L500.2500 ####[facility] [address] [place], [address] Lymphocytes/100 WBC (Bld) 10.1 % Low 19-41 [facility] Comment on above: Performed By: #### L 501.4021, L300.3900, L300.4310, L100.0100, L500.2500 ####[facility] [address] [place], [address] MCH (RBC) [Entitic mass] 29.3 pg Normal 27.0-32.0 [facility] Comment on above: Performed By: #### L 501.4021, L300.3900, L300.4310, L100.0100, L500.2500 ####[facility] [address] [place], [address] MCHC (RBC) [Mass/Vol] 31.6 g/dL Low 32-36 [facility] Comment on above: Performed By: #### L 501.4021, L300.3900, L300.4310, L100.0100, L500.2500 ####[facility] [address] [place], [address] MCV (RBC) [Entitic vol] 93.0 fL Normal 80-94 [facility] Comment on above: Performed By: #### L 501.4021, L300.3900, L300.4310, L100.0100, L500.2500 ####[facility] [address] [place], [address] Monocytes/100 WBC (Bld) 7.7 % Normal 0-10 [facility] Comment on above: Performed By: #### L 501.4021, L300.3900, L300.4310, L100.0100, L500.2500 ####[facility] [address] [place], [address] Neutrophils/100 WBC (Bld) 80.9 % High 47-70 [facility] Comment on above: Performed By: #### L 501.4021, L300.3900, L300.4310, L100.0100, L500.2500 ####[facility] [address] [place], [address] Nucleated RBC (Bld) [#/Vol] 0.1 10*3/uL Normal 0-5 [facility] Comment on above: Performed By: #### L 501.4021, L300.3900, L300.4310, L100.0100, L500.2500 ####[facility] [address] [place], [address] Platelet mean volume (Bld) [Entitic vol] 13.7 fL High 6.2-12.0 [facility] Comment on above: Performed By: #### L 501.4021, L300.3900, L300.4310, L100.0100, L500.2500 ####[facility] [address] [place], [address] Platelets (Bld) [#/Vol] 168 10*3/uL Normal 150-450 [facility] Comment on above: Performed By: #### L 501.4021, L300.3900, L300.4310, L100.0100, L500.2500 ####[facility] [address] [place], [address] RBC (Bld) [#/Vol] 4.26 10*6/uL Low 4.6-6.2 [facility] Comment on above: Performed By: #### L 501.4021, L300.3900, L300.4310, L100.0100, L500.2500 ####[facility] [address] [place], [address] RDW SD 45.9 fl High 35.1-43.9 [facility] Comment on above: Performed By: #### L 501.4021, L300.3900, L300.4310, L100.0100, L500.2500 ####[facility] [address] [place], [address] WBC (Bld) [#/Vol] 19.2 10*3/uL High 4.4-11.0 [facility] Comment on above: Performed By: #### L 501.4021, L300.3900, L300.4310, L100.0100, L500.2500 ####[facility] [address] [place], [address] CBC-Complete Blood Cnt No Di ffon 11-30-2024 HCT Normal 40-54 [facility] Comment on above: Result Comment: NO S PECIMEN COLLECTED Performed By: #### L 100.0500 ####[facility] [address] [place], [address] HGB Normal 13.0-16.5 [facility] Comment on above: Result Comment: NO S PECIMEN COLLECTED Performed By: #### L 100.0500 ####[facility] [address] [place], [address] MCH Normal 27.0-32.0 [facility] Comment on above: Result Comment: NO S PECIMEN COLLECTED Performed By: #### L 100.0500 ####[facility] [address] [place], [address] MCHC Normal 32-36 [facility] Comment on above: Result Comment: NO S PECIMEN COLLECTED Performed By: #### L 100.0500 ####[facility] [address] [place], [address] MCV Normal 80-94 [facility] Comment on above: Result Comment: NO S PECIMEN COLLECTED Performed By: #### L 100.0500 ####[facility] [address] [place], [address] PLT Normal 150-450 [facility] Comment on above: Result Comment: NO S PECIMEN COLLECTED Performed By: #### L 100.0500 ####[facility] [address] [place], [address] RBC Normal 4.6-6.2 [facility] Comment on above: Result Comment: NO S PECIMEN COLLECTED Performed By: #### L 100.0500 ####[facility] [address] [place], [address] RDW CV Normal 11.6-14.6 [facility] Comment on above: Result Comment: NO S PECIMEN COLLECTED Performed By: #### L 100.0500 ####[facility] [address] [place], [address] RDW SD Normal 35.1-43.9 [facility] Comment on above: Result Comment: NO S PECIMEN COLLECTED Performed By: #### L 100.0500 ####[facility] [address] [place], [address] WBC Normal 4.4-11.0 [facility] Comment on above: Result Comment: NO S PECIMEN COLLECTED Performed By: #### L 100.0500 ####[facility] [address] [place], [address] Carbon dioxide, total [Moles /volume] in Central venous bloodOrdered By: Isael Bernabe on 11-30-2024 CO2 [Moles/Vol] 18.3 mmol/L Low 21.0-32.0 [facility] Chest 1 View (Portable)on Chest 1 View (Portable) Normal [facility] Chloride assayOrdered By: Jaylen Bernabe on 11-30-2024 Chloride [Moles/Vol] 98 mmol/L 98-108 [facility] Consultation - Cardiologyon 11-30-2024 Consultation - Cardiology Normal [facility] Emergency Department Summary on 11-30-2024 Emergency Department Summary Normal [facility] Eosinophil percentageOrdered By: Isael Bernabe on 11-30-2024 Eosinophils/100 WBC (Bld) 0.4 % 0-5 [facility] Erythrocyte distribution wid th ratioOrdered By: Isael Bernabe on 11-30-2024 Erythrocyte distribution width (RBC) [Ratio] 13.5 % 11.6-14.6 [facility] Erythrocyte distribution wid th standard deviationOrdered By: Isael Bernabe on 11-30-2024 Erythrocyte distribution width (RBC) [Ratio] 45.9 fl High 35.1-43.9 [facility] Glomerular filtration rate ( GFR) estimation/1.73 sq m using serum, plasma, or whole bOrdered By: Isael Bernabe on 11-30-2024 GFR/1.73 sq M.predicted among non-blacks MDRD (S/P/Bld) [Vol rate/Area] 20 mL/min/{1.73_m2} Low >60 [facility] H AND P Exam - Hospitaliston 11-30-2024 H&P Exam - Hospitalist Normal [facility] Hematocrit Auto (Bld) [Volum e fraction]Ordered By: Isael Bernabe on 11-30-2024 Hematocrit (Bld) [Volume fraction] 39.6 % Low 40-54 [facility] Hemoglobin A1con 11-30-2024 HbA1c (Bld) [Mass fraction] 7.0 % High <=5.6 [facility] Comment on above: Result Comment: Norm al < 5.7 % Prediabetic 5.7 - 6.4 % Diabetic >or= 6.5 % Please note range changes. Performed By: #### L 736.2572 ####[facility] [address] [place], [place], [id number] Hemoglobin A1c percentageOrd ered By: Abraham rohit on 11-30-2024 HbA1c (Bld) [Mass fraction] 7.0 % High <5.7 [facility] Hemoglobin measurementOrdere d By: Isael Bernabe on 11-30-2024 Hemoglobin (Bld) [Mass/Vol] 12.5 g/dL Low 13.0-16.5 [facility] Immature granulocytes/100 WB C Auto (Bld)Ordered By: Isael Bernabe on 11-30-2024 Immature granulocytes/100 WBC (Bld) 0.700 % 0.0-0.9 [facility] L501.4021on 11-30-2024 Trop T High Sen 61 ng/L Invalid Interpretation Code <=22 [facility] Comment on above: Result Comment: Crit ical Result(s) Called at: 1621 by: MOISE MEDINA??Results read back by same. Performed By: #### L 501.4021, L300.3900, L300.4310, L100.0100, L500.2500 ####[facility] [address] [place], [place], [id number] MCV (mean corpuscular volume ) determinationOrdered By: Isael Bernabe on 11-30-2024 MCV (RBC) [Entitic vol] 93.0 fL 80-94 [facility] MR/QUALITYon 11-30-2024 MR/QUALITY Normal [facility] Mean corpuscular hemoglobin (MCH) determinationOrdered By: Isael Bernabe on 11-30-2024 MCH (RBC) [Entitic mass] 29.3 pg 27.0-32.0 [facility] Monocyte percentageOrdered B y: Isael Bernabe on 11-30-2024 Monocytes/100 WBC (Bld) 7.7 % 0-10 [facility] Neutrophil percentageOrdered By: Isael Bernabe on 11-30-2024 Neutrophils/100 WBC (Bld) 80.9 % High 47-70 [facility] Partial Thromboplast Timeon 11-30-2024 aPTT Coag (Bld) [Time] 112.9 s Invalid Interpretation Code 24.1-36.2 [facility] Comment on above: Result Comment: CRIT ICAL VALUE CALLED TO CAITLIN ANTOINE11/30/24 [address].RESULTS READ BACK BY SAME. Performed By: #### L 501.4021, L300.3900, L300.4310, L100.0100, L500.2500 ####[facility] [address] [place], [address] Platelet countOrdered By: Jaylen Bernabe on 11-30-2024 Platelets (Bld) [#/Vol] 168 10*3/uL 150-450 [facility] Potassium measurement (mass/ volume)Ordered By: Isael Bernabe on 11-30-2024 Potassium (Unsp spec) [Mass/Vol] 4.4 mmol/L 3.3-5.1 [facility] Prothrombin Time w/INRon INR Coag (PPP) [Relative time] 1.3 {INR} Normal [facility] Comment on above: Performed By: #### L 501.4021, L300.3900, L300.4310, L100.0100, L500.2500 ####[facility] [address] [place], [address] PT Coag (PPP) [Time] 16.1 s High 11.7-14.9 [facility] Comment on above: Performed By: #### L 501.4021, L300.3900, L300.4310, L100.0100, L500.2500 ####[facility] [address] [place], [address] Prothrombin timeOrdered By: Isael Bernabe on 11-30-2024 PT Coag (PPP) [Time] 16.1 s High 11.7-14.9 [facility] RBC Auto (Bld) [#/Vol]Ordere d By: Isael Bernabe on 11-30-2024 RBC (Bld) [#/Vol] 4.26 10*6/uL Low 4.6-6.2 [facility] Serum creatinine measurement (mass/volume)Ordered By: Isael Bernabe on 11-30-2024 Creatinine [Mass/Vol] 3.10 mg/dL High 0.70-1.20 [facility] Serum glucose measurement (m ass/volume)Ordered By: Isael Bernabe on 11-30-2024 Glucose [Mass/Vol] 328 mg/dL High 70-99 [facility] Serum or plasma calcium francine urement (mass/volume)Ordered By: Isael Bernabe on 11-30-2024 Calcium [Mass/Vol] 9.5 mg/dL 7.6-11.0 [facility] Serum or plasma urea nitroge n measurement (mass/volume)Ordered By: Isael Bernabe on 11-30-2024 Urea nitrogen [Mass/Vol] 45 mg/dL High 4-19 [facility] Sodium levelOrdered By: Isael Bernabe on 11-30-2024 Sodium [Moles/Vol] 135 mmol/L 133-145 [facility] Troponin T HS 2 HRon 025 Trop T High Sen Normal <=22 [facility] Comment on above: Result Comment: [employer] via OM: Ordered Performed By: #### L 499.0042 ####[facility] [address] [place], [place], [address] Troponin T HS 4 HRon 025 Trop T High Sen Normal <=22 [facility] Comment on above: Result Comment: [employer] via OM: Ordered Performed By: #### L 499.0043 ####[facility] [address] [place], [place], [address] Troponin T.cardiac [Mass/vol ume] in Serum or Plasma by High sensitivity methodOrdered By: Isael Bernabe on 11-30-2024 Troponin T.cardiac High sensitivity method [Mass/Vol] 61 ng/L High <22 [facility] White blood cell (WBC) count Ordered By: Isael Bernabe on 11-30-2024 WBC (Bld) [#/Vol] 19.2 10*3/uL High 4.4-11.0 [facility] ACT Activated Clotting Timeo n 11-28-2024 ACTk CLOT TIME 205 sec High 74-137 [facility] Comment on above: Performed By: #### L 9100.0100 ####[facility] [address] [place], [address] ACTk CLOT TIME 227 sec High 74-137 [facility] Comment on above: Performed By: #### L 9100.0100 ####[facility] [address] [place], [address] Anion gap in Serum or Plasma Ordered By: Jose Hay on 11-28-2024 Anion gap [Moles/Vol] 13 mmol/L 5- [facility] BUN/creatinine ratioOrdered By: Jose Hay on 11-28-2024 Urea nitrogen/Creatinine [Mass ratio] 15.2 mg/mg 10- [facility] Bilirubin, totalOrdered By: Jose Hay on 11-28-2024 Bilirubin [Mass/Vol] 0.78 mg/dL 0.00-1.30 [facility] CBC-Complete Blood Cnt No Di ffon 11-28-2024 Erythrocyte distribution width (RBC) [Ratio] 13.6 % Normal 11.6-14.6 [facility] Comment on above: Performed By: #### L 100.0500, L500.4050 ####[facility] [address] [place], [address] Hematocrit (Bld) [Volume fraction] 35.3 % Low 40-54 [facility] Comment on above: Performed By: #### L 100.0500, L500.4050 ####[facility] [address] [place], [address] Hemoglobin (Bld) [Mass/Vol] 11.3 g/dL Low 13.0-16.5 [facility] Comment on above: Performed By: #### L 100.0500, L500.4050 ####[facility] [address] [place], [address] MCH (RBC) [Entitic mass] 29.4 pg Normal 27.0-32.0 [facility] Comment on above: Performed By: #### L 100.0500, L500.4050 ####[facility] [address] [place], [address] MCHC (RBC) [Mass/Vol] 32.0 g/dL Normal 32-36 [facility] Comment on above: Performed By: #### L 100.0500, L500.4050 ####[facility] [address] [place], [address] MCV (RBC) [Entitic vol] 91.7 fL Normal 80-94 [facility] Comment on above: Performed By: #### L 100.0500, L500.4050 ####[facility] [address] [place], [address] Platelet mean volume (Bld) [Entitic vol] 12.6 fL High 6.2-12.0 [facility] Comment on above: Performed By: #### L 100.0500, L500.4050 ####[facility] [address] [place], [address] Platelets (Bld) [#/Vol] 108 10*3/uL Low 150-450 [facility] [facility] Comment on above: Performed By: #### L 100.0500, L500.4050 ####[facility] [address] [place], [address] RBC (Bld) [#/Vol] 3.85 10*6/uL Low 4.6-6.2 [facility] Comment on above: Performed By: #### L 100.0500, L500.4050 ####[facility] [address] [place], [address] RDW SD 46.1 fl High 35.1-43.9 [facility] Comment on above: Performed By: #### L 100.0500, L500.4050 ####[facility] [address] [place], [address] WBC (Bld) [#/Vol] 7.1 10*3/uL Normal 4.4-11.0 [facility] Comment on above: Performed By: #### L 100.0500, L500.4050 ####[facility] [address] [place], [address] Carbon dioxide, total [Moles /volume] in Central venous bloodOrdered By: Jose Hay on 11-28-2024 CO2 [Moles/Vol] 23.7 mmol/L 21.0-32.0 [facility] Chloride assayOrdered By: Harsh Hay on 11-28-2024 Chloride [Moles/Vol] 102 mmol/L 98-108 [facility] Comprehensive Metabolic Prof ilon 11-28-2024 Albumin [Mass/Vol] 3.8 g/dL Normal 3.4-4.8 [facility] Comment on above: Performed By: #### L 100.0500, L500.4050 ####[facility] [address] [place], [address] Albumin/Globulin [Mass ratio] 1.4 {ratio} Normal 0.9-2.4 [facility] Comment on above: Performed By: #### L 100.0500, L500.4050 ####[facility] [address] [place], [address] ALK PHOS 93 U/L Normal 40-129 [facility] Comment on above: Performed By: #### L 100.0500, L500.4050 ####[facility] [address] [place], [address] ALT [Catalytic activity/Vol] 27 U/L Normal <=46 [facility] Comment on above: Result Comment: Hemo lysis present, Results??could be affected.?? Performed By: #### L 100.0500, L500.4050 ####[facility] [address] [place], [address] AST [Catalytic activity/Vol] 33 U/L Normal <=37 [facility] Comment on above: Result Comment: Hemo lysis present, Results??could be affected.?? Performed By: #### L 100.0500, L500.4050 ####[facility] [address] [place], [address] Bilirubin [Mass/Vol] 0.78 mg/dL Normal 0.00-1.30 [facility] Comment on above: Performed By: #### L 100.0500, L500.4050 ####[facility] [address] [place], [address] BUN/CRE 15.2 RATIO Normal 10-20 [facility] Comment on above: Performed By: #### L 100.0500, L500.4050 ####[facility] [address] [place], [address] Calcium [Mass/Vol] 9.2 mg/dL Normal 7.6-11.0 [facility] Comment on above: Performed By: #### L 100.0500, L500.4050 ####[facility] [address] [place], [address] Chloride [Moles/Vol] 102 mmol/L Normal 98-108 [facility] Comment on above: Performed By: #### L 100.0500, L500.4050 ####[facility] [address] [place], [address] CO2 [Moles/Vol] 23.7 mmol/L Normal 21.0-32.0 [facility] Comment on above: Performed By: #### L 100.0500, L500.4050 ####[facility] [address] [place], [address] Creatinine [Mass/Vol] 1.93 mg/dL High 0.70-1.20 [facility] Comment on above: Performed By: #### L 100.0500, L500.4050 ####[facility] [address] [place], [address] ECRCL 37.66 ml/min Low 50-250 [facility] Comment on above: Performed By: #### L 100.0500, L500.4050 ####[facility] [address] [place], [address] GAP 13 Normal 5-15 [facility] Comment on above: Performed By: #### L 100.0500, L500.4050 ####[facility] [address] [place], [address] GFR/1.73 sq M.predicted among non-blacks MDRD (S/P/Bld) [Vol rate/Area] 35 mL/min/{1.73_m2} Low >60 [facility] Comment on above: Result Comment: mL/m in/1.73m2 CKD-EPI Creatinine Equation (2020) Performed By: #### L 100.0500, L500.4050 ####[facility] [address] [place], [address] Globulin (S) [Mass/Vol] 2.8 g/dL Normal 2.2-4.2 [facility] Comment on above: Performed By: #### L 100.0500, L500.4050 ####[facility] [address] [place], [address] Glucose [Mass/Vol] 130 mg/dL High 70-99 [facility] Comment on above: Performed By: #### L 100.0500, L500.4050 ####[facility] [address] [place], [address] Potassium [Moles/Vol] 4.4 mmol/L Normal 3.3-5.1 [facility] Comment on above: Result Comment: Hemo lysis present, Results??could be affected.?? Performed By: #### L 100.0500, L500.4050 ####[facility] [address] [place], [address] Sodium [Moles/Vol] 139 mmol/L Normal 133-145 [facility] Comment on above: Performed By: #### L 100.0500, L500.4050 ####[facility] [address] [place], [address] T PROT 6.6 g/dL Normal 5.9-8.4 [facility] Comment on above: Performed By: #### L 100.0500, L500.4050 ####[facility] [address] [place], [address] Urea nitrogen [Mass/Vol] 29 mg/dL High 4-19 [facility] Comment on above: Performed By: #### L 100.0500, L500.4050 ####[facility] [address] [place], [address] Erythrocyte distribution wid th ratioOrdered By: Jose Hay on 11-28-2024 Erythrocyte distribution width (RBC) [Ratio] 13.6 % 11.6-14.6 [facility] Erythrocyte distribution wid th standard deviationOrdered By: Jose Hay on 11-28-2024 Erythrocyte distribution width (RBC) [Ratio] 46.1 fl High 35.1-43.9 [facility] Glomerular filtration rate ( GFR) estimation/1.73 sq m using serum, plasma, or whole bOrdered By: Jose Hay on 11-28-2024 GFR/1.73 sq M.predicted among non-blacks MDRD (S/P/Bld) [Vol rate/Area] 35 mL/min/{1.73_m2} Low >60 [facility] Hematocrit Auto (Bld) [Volum e fraction]Ordered By: Jose Hay on 11-28-2024 Hematocrit (Bld) [Volume fraction] 35.3 % Low 40-54 [facility] Hemoglobin measurementOrdere d By: Jose Hay on 11-28-2024 Hemoglobin (Bld) [Mass/Vol] 11.3 g/dL Low 13.0-16.5 [facility] MCV (mean corpuscular volume ) determinationOrdered By: Jose Hay on 11-28-2024 MCV (RBC) [Entitic vol] 91.7 fL 80-94 [facility] Mean corpuscular hemoglobin (MCH) determinationOrdered By: Jose Hay on 11-28-2024 MCH (RBC) [Entitic mass] 29.4 pg 27.0-32.0 [facility] No Panel InformationOrdered By: Jose Hay on 11-28-2024 33 U/L <38 [facility] Platelet countOrdered By: Harsh Hay on 11-28-2024 Platelets (Bld) [#/Vol] 108 10*3/uL Low 150-450 [facility] Potassium measurement (mass/ volume)Ordered By: Jose Hay on 11-28-2024 Potassium (Unsp spec) [Mass/Vol] 4.4 mmol/L 3.3-5.1 [facility] RBC Auto (Bld) [#/Vol]Ordere d By: Jose Hay on 11-28-2024 RBC (Bld) [#/Vol] 3.85 10*6/uL Low 4.6-6.2 [facility] Serum creatinine measurement (mass/volume)Ordered By: Jose Hay on 11-28-2024 Creatinine [Mass/Vol] 1.93 mg/dL High 0.70-1.20 [facility] Serum globulin measurementOr dered By: Jose Hay on 11-28-2024 Globulin (S) [Mass/Vol] 2.8 g/dL 2.2-4.2 [facility] Serum glucose measurement (m ass/volume)Ordered By: Jose Hay on 11-28-2024 Glucose [Mass/Vol] 130 mg/dL High 70-99 [facility] Serum or plasma alanine guerrero otransferase (ALT) measurementOrdered By: Jose Hay on 11-28-2024 ALT [Catalytic activity/Vol] 27 U/L <47 [facility] Serum or plasma albumin francine urement (mass/volume)Ordered By: Jose Hay on 11-28-2024 Albumin [Mass/Vol] 3.8 g/dL 3.4-4.8 [facility] Serum or plasma albumin/glob ulin mass ratioOrdered By: Jose Hay on 11-28-2024 Albumin/Globulin [Mass ratio] 1.4 {ratio} 0.9-2.4 [facility] Serum or plasma alkaline bell sphatase measurementOrdered By: Jose Hay on 11-28-2024 ALP [Catalytic activity/Vol] 93 U/L 40-129 [facility] Serum or plasma calcium francine urement (mass/volume)Ordered By: Jose Hay on 11-28-2024 Calcium [Mass/Vol] 9.2 mg/dL 7.6-11.0 [facility] Serum or plasma urea nitroge n measurement (mass/volume)Ordered By: Jose Hay on 11-28-2024 Urea nitrogen [Mass/Vol] 29 mg/dL High 4-19 [facility] Sodium levelOrdered By: Ernst Hay on 11-28-2024 Sodium [Moles/Vol] 139 mmol/L 133-145 [facility] Total proteinOrdered By: Emmanuel Hay on 11-28-2024 Protein [Mass/Vol] 6.6 g/dL 5.9-8.4 [facility] White blood cell (WBC) count Ordered By: Jose Hay on 11-28-2024 WBC (Bld) [#/Vol] 7.1 10*3/uL 4.4-11.0 [facility] 12 Lead EKGon 11-27-2024 12 Lead EKG Normal [facility] Cardiac rehabilitation repor tOrdered By: Karrie Arceo on 11-27-2024 Study report [facility] Discharge Instructionon -2 Discharge Instruction Normal [facility] 12 Lead EKGon 11-26-2024 12 Lead EKG Normal [facility] Absolute lymphocyte countOrd ered By: Isael Bernabe on 11-26-2024 Lymphocytes Auto (Unsp spec) [#/Vol] 1.53 10*3/uL 0.83-4.51 [facility] Anion gap in Serum or Plasma Ordered By: Isael Bernabe on 11-26-2024 Anion gap [Moles/Vol] 15 mmol/L 5-15 [facility] Automated lymphocyte count a s percentage of total leukocytesOrdered By: Isael Bernabe on 11-26-2024 Lymphocytes/100 WBC Auto (Unsp spec) 16.7 % Low 19-41 [facility] BUN/creatinine ratioOrdered By: Isael Bernabe on 11-26-2024 Urea nitrogen/Creatinine [Mass ratio] 18.2 mg/mg 10- [facility] Basic Metabolic Profile (BMP )on 11-26-2024 BUN/CRE 18.2 RATIO Normal - [facility] Comment on above: Performed By: #### L 501.4021, L503.7505, L500.2500, L100.0100 ####[facility] [address] [place], [address] Calcium [Mass/Vol] 9.2 mg/dL Normal 7.6-11.0 [facility] Comment on above: Performed By: #### L 501.4021, L503.7505, L500.2500, L100.0100 ####[facility] [address] [place], [address] Chloride [Moles/Vol] 100 mmol/L Normal 98-108 [facility] Comment on above: Performed By: #### L 501.4021, L503.7505, L500.2500, L100.0100 ####[facility] [address] [place], [address] CO2 [Moles/Vol] 21.5 mmol/L Normal 21.0-32.0 [facility] Comment on above: Performed By: #### L 501.4021, L503.7505, L500.2500, L100.0100 ####[facility] [address] [place], [address] Creatinine [Mass/Vol] 2.34 mg/dL High 0.70-1.20 [facility] Comment on above: Performed By: #### L 501.4021, L503.7505, L500.2500, L100.0100 ####[facility] [address] [place], [address] ECRCL 31.97 ml/min Low 50-250 [facility] Comment on above: Performed By: #### L 501.4021, L503.7505, L500.2500, L100.0100 ####[facility] [address] [place], [address] GAP 15 Normal 5-15 [facility] Comment on above: Performed By: #### L 501.4021, L503.7505, L500.2500, L100.0100 ####[facility] [address] [place], [address] GFR/1.73 sq M.predicted among non-blacks MDRD (S/P/Bld) [Vol rate/Area] 28 mL/min/{1.73_m2} Low >60 [facility] Comment on above: Result Comment: mL/m in/1.73m2 CKD-EPI Creatinine Equation (2020) Performed By: #### L 501.4021, L503.7505, L500.2500, L100.0100 ####[facility] [address] [place], [address] Glucose [Mass/Vol] 275 mg/dL High 70-99 [facility] Comment on above: Performed By: #### L 501.4021, L503.7505, L500.2500, L100.0100 ####[facility] [address] [place], [address] Potassium [Moles/Vol] 4.4 mmol/L Normal 3.3-5.1 [facility] Comment on above: Performed By: #### L 501.4021, L503.7505, L500.2500, L100.0100 ####[facility] [address] [place], [address] Sodium [Moles/Vol] 137 mmol/L Normal 133-145 [facility] Comment on above: Performed By: #### L 501.4021, L503.7505, L500.2500, L100.0100 ####[facility] [address] [place], [address] Urea nitrogen [Mass/Vol] 43 mg/dL High 4-19 [facility] Comment on above: Performed By: #### L 501.4021, L503.7505, L500.2500, L100.0100 ####[facility] [address] [place], [address] Basophil percentageOrdered B y: Isael Bernabe on 11-26-2024 Basophils/100 WBC (Bld) 0.3 % 0-1 [facility] Brain/Head without Contrasto n 11-26-2024 Brain/Head without Contrast Normal [facility] CBC W/Diff, Automatedon 07- Absolute Lymph 1.53 X10 3/uL Normal 0.83-4.51 [facility] Comment on above: Performed By: #### L 501.4021, L503.7505, L500.2500, L100.0100 ####[facility] [address] [place], [address] Absolute Neut 6.6 X10 3/uL Normal 2.0-7.7 [facility] Comment on above: Performed By: #### L 501.4021, L503.7505, L500.2500, L100.0100 ####[facility] [address] [place], [address] Basophils/100 WBC (Bld) 0.3 % Normal 0-1 [facility] Comment on above: Performed By: #### L 501.4021, L503.7505, L500.2500, L100.0100 ####[facility] [address] [place], [address] Eosinophils/100 WBC (Bld) 1.3 % Normal 0-5 [facility] Comment on above: Performed By: #### L 501.4021, L503.7505, L500.2500, L100.0100 ####[facility] [address] [place], [address] Erythrocyte distribution width (RBC) [Ratio] 13.9 % Normal 11.6-14.6 [facility] Comment on above: Performed By: #### L 501.4021, L503.7505, L500.2500, L100.0100 ####[facility] [address] [place], [address] Hematocrit (Bld) [Volume fraction] 36.7 % Low 40-54 [facility] Comment on above: Performed By: #### L 501.4021, L503.7505, L500.2500, L100.0100 ####[facility] [address] [place], [address] Hemoglobin (Bld) [Mass/Vol] 11.8 g/dL Low 13.0-16.5 [facility] Comment on above: Performed By: #### L 501.4021, L503.7505, L500.2500, L100.0100 ####[facility] [address] [place], [address] IG% 0.400 Normal 0.0-0.9 [facility] Comment on above: Result Comment: IG% - Immature Granulocytes (promyelocytes, myelocytes andmetamyelocytes) > 1% indicates that a LEFT SHIFT is Present. Performed By: #### L 501.4021, L503.7505, L500.2500, L100.0100 ####[facility] [address] [place], [address] Lymphocytes/100 WBC (Bld) 16.7 % Low 19-41 [facility] Comment on above: Performed By: #### L 501.4021, L503.7505, L500.2500, L100.0100 ####[facility] [address] [place], [address] MCH (RBC) [Entitic mass] 29.2 pg Normal 27.0-32.0 [facility] Comment on above: Performed By: #### L 501.4021, L503.7505, L500.2500, L100.0100 ####[facility] [address] [place], [address] MCHC (RBC) [Mass/Vol] 32.2 g/dL Normal 32-36 [facility] Comment on above: Performed By: #### L 501.4021, L503.7505, L500.2500, L100.0100 ####[facility] [address] [place], [address] MCV (RBC) [Entitic vol] 90.8 fL Normal 80-94 [facility] Comment on above: Performed By: #### L 501.4021, L503.7505, L500.2500, L100.0100 ####[facility] [address] [place], [address] Monocytes/100 WBC (Bld) 9.5 % Normal 0-10 [facility] Comment on above: Performed By: #### L 501.4021, L503.7505, L500.2500, L100.0100 ####[facility] [address] [place], [address] Neutrophils/100 WBC (Bld) 71.8 % High 47-70 [facility] Comment on above: Performed By: #### L 501.4021, L503.7505, L500.2500, L100.0100 ####[facility] [address] [place], [address] Nucleated RBC (Bld) [#/Vol] 0 10*3/uL Normal 0-5 [facility] Comment on above: Performed By: #### L 501.4021, L503.7505, L500.2500, L100.0100 ####[facility] [address] [place], [address] Platelet mean volume (Bld) [Entitic vol] 12.8 fL High 6.2-12.0 [facility] Comment on above: Performed By: #### L 501.4021, L503.7505, L500.2500, L100.0100 ####[facility] [address] [place], [address] Platelets (Bld) [#/Vol] 132 10*3/uL Low 150-450 [facility] Comment on above: Performed By: #### L 501.4021, L503.7505, L500.2500, L100.0100 ####[facility] [address] [place], [address] RBC (Bld) [#/Vol] 4.04 10*6/uL Low 4.6-6.2 [facility] Comment on above: Performed By: #### L 501.4021, L503.7505, L500.2500, L100.0100 ####[facility] [address] [place], [address] RDW SD 46.6 fl High 35.1-43.9 [facility] Comment on above: Performed By: #### L 501.4021, L503.7505, L500.2500, L100.0100 ####[facility] [address] [place], [place], [address] WBC (Bld) [#/Vol] 9.2 10*3/uL Normal 4.4-11.0 [facility] Comment on above: Performed By: #### L 501.4021, L503.7505, L500.2500, L100.0100 ####[facility] [address] [place], [place], [address] Carbon dioxide, total [Moles /volume] in Central venous bloodOrdered By: Isael Bernabe on 11-26-2024 CO2 [Moles/Vol] 21.5 mmol/L 21.0-32.0 [facility] Chest 1 View (Portable)on Chest 1 View (Portable) Normal [facility] Chloride assayOrdered By: Jaylen Bernabe on 11-26-2024 Chloride [Moles/Vol] 100 mmol/L 98-108 [facility] Emergency Department Summary on 11-26-2024 Emergency Department Summary Normal [facility] Eosinophil percentageOrdered By: Isael Bernabe on 11-26-2024 Eosinophils/100 WBC (Bld) 1.3 % 0-5 [facility] Erythrocyte distribution wid th ratioOrdered By: Isael Bernabe on 11-26-2024 Erythrocyte distribution width (RBC) [Ratio] 13.9 % 11.6-14.6 [facility] Erythrocyte distribution wid th standard deviationOrdered By: Isael Bernabe on 11-26-2024 Erythrocyte distribution width (RBC) [Ratio] 46.6 fl High 35.1-43.9 [facility] Glomerular filtration rate ( GFR) estimation/1.73 sq m using serum, plasma, or whole bOrdered By: Isael Bernabe on 11-26-2024 GFR/1.73 sq M.predicted among non-blacks MDRD (S/P/Bld) [Vol rate/Area] 28 mL/min/{1.73_m2} Low >60 [facility] Hand Min 3 Viewson Hand Min 3 Views Normal [facility] Hematocrit Auto (Bld) [Volum e fraction]Ordered By: Isael Bernabe on 11-26-2024 Hematocrit (Bld) [Volume fraction] 36.7 % Low 40-54 [facility] Hemoglobin measurementOrdere d By: Isael Bernabe on 11-26-2024 Hemoglobin (Bld) [Mass/Vol] 11.8 g/dL Low 13.0-16.5 [facility] Immature granulocytes/100 WB C Auto (Bld)Ordered By: Isael Bernabe on 11-26-2024 Immature granulocytes/100 WBC (Bld) 0.400 % 0.0-0.9 [facility] Knee 4 or More Viewson 11-26 Knee 4 or More Views Normal [facility] Knee 4 or More Views Normal [facility] L501.4021on 11-26-2024 Trop T High Sen 18 ng/L Normal <=22 [facility] Comment on above: Performed By: #### L 501.4021, L503.7505, L500.2500, L100.0100 ####[facility] [address] [place], [address] MCV (mean corpuscular volume ) determinationOrdered By: Isael Bernabe on 11-26-2024 MCV (RBC) [Entitic vol] 90.8 fL 80-94 [facility] Mean corpuscular hemoglobin (MCH) determinationOrdered By: Isael Bernabe on 11-26-2024 MCH (RBC) [Entitic mass] 29.2 pg 27.0-32.0 [facility] Monocyte percentageOrdered B y: Isael Bernabe on 11-26-2024 Monocytes/100 WBC (Bld) 9.5 % 0-10 [facility] Natriuretic peptide.B prohor efrem N-Terminal [Mass/volume] in Serum or PlasmaOrdered By: Isael Bernabe on 11-26-2024 Natriuretic peptide.B prohormone N-Terminal [Mass/Vol] 162 pg/mL <1800 [facility] Neutrophil percentageOrdered By: Isael Bernabe on 11-26-2024 Neutrophils/100 WBC (Bld) 71.8 % High 47-70 [facility] Platelet countOrdered By: Jaylen Bernabe on 11-26-2024 Platelets (Bld) [#/Vol] 132 10*3/uL Low 150-450 [facility] Potassium measurement (mass/ volume)Ordered By: Isael Bernabe on 11-26-2024 Potassium (Unsp spec) [Mass/Vol] 4.4 mmol/L 3.3-5.1 [facility] Pro- Brain NATRIURETIC PEPTI Sharon 11-26-2024 Natriuretic peptide B (Bld) [Mass/Vol] 162 pg/mL Normal <=1800 [facility] Comment on above: Result Comment: Hear t Failure Unlikely: < 300 pg/mLHeart Failure Likely< 50 Years: > 450 pg/mL50-75 Years: > 900 pg/mL>75 Years: > 1800 pg/mL Performed By: #### L 501.4021, L503.7505, L500.2500, L100.0100 ####[facility] [address] [place], [address] RBC Auto (Bld) [#/Vol]Ordere d By: Isael Bernabe on 11-26-2024 RBC (Bld) [#/Vol] 4.04 10*6/uL Low 4.6-6.2 [facility] Serum creatinine measurement (mass/volume)Ordered By: Isael Bernabe on 11-26-2024 Creatinine [Mass/Vol] 2.34 mg/dL High 0.70-1.20 [facility] Serum glucose measurement (m ass/volume)Ordered By: Isael Bernabe on 11-26-2024 Glucose [Mass/Vol] 275 mg/dL High 70-99 [facility] Serum or plasma calcium francine urement (mass/volume)Ordered By: Isael Bernabe on 11-26-2024 Calcium [Mass/Vol] 9.2 mg/dL 7.6-11.0 [facility] Serum or plasma urea nitroge n measurement (mass/volume)Ordered By: Isael Bernabe on 11-26-2024 Urea nitrogen [Mass/Vol] 43 mg/dL High 4-19 [facility] Sodium levelOrdered By: Isael Bernabe on 11-26-2024 Sodium [Moles/Vol] 137 mmol/L 133-145 [facility] Spine Cervical without Contr ason 11-26-2024 Spine Cervical without Contras Normal [facility] Troponin T HS 2 HRon 025 Trop T High Sen 20 ng/L Normal <=22 [facility] Comment on above: Performed By: #### L 499.0042 ####[facility] [address] [place], [place], [id number] Troponin T HS 4 HRon 025 Trop T High Sen Normal <=22 [facility] Comment on above: Result Comment: Canc elled via OM: Order cancelled - Patient discharged Performed By: #### L 499.0043 ####[facility] [address] [place], [place], [id number] Troponin T.cardiac [Mass/vol ume] in Serum or Plasma by High sensitivity methodOrdered By: Isael Bernabe on 11-26-2024 Troponin T.cardiac High sensitivity method [Mass/Vol] 20 ng/L <22 [facility] Troponin T.cardiac High sensitivity method [Mass/Vol] 18 ng/L <22 [facility] White blood cell (WBC) count Ordered By: Isael Bernabe on 11-26-2024 WBC (Bld) [#/Vol] 9.2 10*3/uL 4.4-11.0 [facility] Absolute lymphocyte countOrd ered By: Gustabo Pérez on 11-22-2024 Lymphocytes Auto (Unsp spec) [#/Vol] 1.37 10*3/uL 0.83-4.51 [facility] Anion gap in Serum or Plasma Ordered By: Gustabo Pérez on 11-22-2024 Anion gap [Moles/Vol] 15 mmol/L - [facility] Automated lymphocyte count a s percentage of total leukocytesOrdered By: Gustabo Pérez on 11-22-2024 Lymphocytes/100 WBC Auto (Unsp spec) 16.1 % Low [facility] BUN/creatinine ratioOrdered By: Gustabo Pérez on 11-22-2024 Urea nitrogen/Creatinine [Mass ratio] 15.6 mg/mg 02-19 [facility] Basic Metabolic Profile (BMP )on 11-22-2024 BUN/CRE 15.6 RATIO Normal 02-19 [facility] Comment on above: Performed By: #### L 100.0100, L500.2500, L503.7505 ####[facility] [address] [place], [address] Calcium [Mass/Vol] 9.1 mg/dL Normal 7.6-11.0 [facility] Comment on above: Performed By: #### L 100.0100, L500.2500, L503.7505 ####[facility] [address] [place], [address] Chloride [Moles/Vol] 102 mmol/L Normal 98-108 [facility] Comment on above: Performed By: #### L 100.0100, L500.2500, L503.7505 ####[facility] [address] [place], [address] CO2 [Moles/Vol] 21.6 mmol/L Normal 21.0-32.0 [facility] Comment on above: Performed By: #### L 100.0100, L500.2500, L503.7505 ####[facility] [address] [place], [address] Creatinine [Mass/Vol] 2.51 mg/dL High 0.70-1.20 [facility] Comment on above: Performed By: #### L 100.0100, L500.2500, L503.7505 ####[facility] [address] [place], [address] GAP 15 Normal 5-15 [facility] Comment on above: Performed By: #### L 100.0100, L500.2500, L503.7505 ####[facility] [address] [place], [address] GFR/1.73 sq M.predicted among non-blacks MDRD (S/P/Bld) [Vol rate/Area] 25 mL/min/{1.73_m2} Low >60 [facility] Comment on above: Result Comment: mL/m in/1.73m2 CKD-EPI Creatinine Equation (2020) Performed By: #### L 100.0100, L500.2500, L503.7505 ####[facility] [address] [place], [address] Glucose [Mass/Vol] 262 mg/dL High 70-99 [facility] Comment on above: Performed By: #### L 100.0100, L500.2500, L503.7505 ####[facility] [address] [place], [address] Potassium [Moles/Vol] 4.8 mmol/L Normal 3.3-5.1 [facility] Comment on above: Performed By: #### L 100.0100, L500.2500, L503.7505 ####[facility] [address] [place], [address] Sodium [Moles/Vol] 139 mmol/L Normal 133-145 [facility] Comment on above: Performed By: #### L 100.0100, L500.2500, L503.7505 ####[facility] [address] [place], [address] Urea nitrogen [Mass/Vol] 39 mg/dL High 4-19 [facility] Comment on above: Performed By: #### L 100.0100, L500.2500, L503.7505 ####[facility] [address] [place], [address] Basophil percentageOrdered B y: Gustabo Beto on 11-22-2024 Basophils/100 WBC (Bld) 0.4 % 0-1 [facility] CBC W/Diff, Automatedon 11-01 Absolute Lymph 1.37 X10 3/uL Normal 0.83-4.51 [facility] Comment on above: Performed By: #### L 100.0100, L500.2500, L503.7505 ####[facility] [address] [place], [address] Absolute Neut 6.2 X10 3/uL Normal 2.0-7.7 [facility] Comment on above: Performed By: #### L 100.0100, L500.2500, L503.7505 ####[facility] [address] [place], [address] Basophils/100 WBC (Bld) 0.4 % Normal 0-1 [facility] Comment on above: Performed By: #### L 100.0100, L500.2500, L503.7505 ####[facility] [address] [place], [address] Eosinophils/100 WBC (Bld) 1.5 % Normal 0-5 [facility] Comment on above: Performed By: #### L 100.0100, L500.2500, L503.7505 ####[facility] [address] [place], [address] Erythrocyte distribution width (RBC) [Ratio] 13.8 % Normal 11.6-14.6 [facility] Comment on above: Performed By: #### L 100.0100, L500.2500, L503.7505 ####[facility] [address] [place], [address] Hematocrit (Bld) [Volume fraction] 36.5 % Low 40-54 [facility] Comment on above: Performed By: #### L 100.0100, L500.2500, L503.7505 ####[facility] [address] [place], [address] Hemoglobin (Bld) [Mass/Vol] 11.8 g/dL Low 13.0-16.5 [facility] Comment on above: Performed By: #### L 100.0100, L500.2500, L503.7505 ####[facility] [address] [place], [address] IG% 0.500 Normal 0.0-0.9 [facility] Comment on above: Result Comment: IG% - Immature Granulocytes (promyelocytes, myelocytes andmetamyelocytes) > 1% indicates that a LEFT SHIFT is Present. Performed By: #### L 100.0100, L500.2500, L503.7505 ####[facility] [address] [place], [address] Lymphocytes/100 WBC (Bld) 16.1 % Low 19-41 [facility] Comment on above: Performed By: #### L 100.0100, L500.2500, L503.7505 ####[facility] [address] [place], [address] MCH (RBC) [Entitic mass] 29.6 pg Normal 27.0-32.0 [facility] Comment on above: Performed By: #### L 100.0100, L500.2500, L503.7505 ####[facility] [address] [place], [address] MCHC (RBC) [Mass/Vol] 32.3 g/dL Normal 32-36 [facility] Comment on above: Performed By: #### L 100.0100, L500.2500, L503.7505 ####[facility] [address] [place], [address] MCV (RBC) [Entitic vol] 91.7 fL Normal 80-94 [facility] Comment on above: Performed By: #### L 100.0100, L500.2500, L503.7505 ####[facility] [address] [place], [address] Monocytes/100 WBC (Bld) 9.0 % Normal 0-10 [facility] Comment on above: Performed By: #### L 100.0100, L500.2500, L503.7505 ####[facility] [address] [place], [address] Neutrophils/100 WBC (Bld) 72.5 % High 47-70 [facility] Comment on above: Performed By: #### L 100.0100, L500.2500, L503.7505 ####[facility] [address] [place], [address] Nucleated RBC (Bld) [#/Vol] 0 10*3/uL Normal 0-5 [facility] Comment on above: Performed By: #### L 100.0100, L500.2500, L503.7505 ####[facility] [address] [place], [address] Platelet mean volume (Bld) [Entitic vol] 13.0 fL High 6.2-12.0 [facility] Comment on above: Performed By: #### L 100.0100, L500.2500, L503.7505 ####[facility] [address] [place], [address] Platelets (Bld) [#/Vol] 148 10*3/uL Low 150-450 [facility] Comment on above: Performed By: #### L 100.0100, L500.2500, L503.7505 ####[facility] [address] [place], [address] RBC (Bld) [#/Vol] 3.98 10*6/uL Low 4.6-6.2 [facility] Comment on above: Performed By: #### L 100.0100, L500.2500, L503.7505 ####[facility] [address] [place], [address] RDW SD 47.0 fl High 35.1-43.9 [facility] Comment on above: Performed By: #### L 100.0100, L500.2500, L503.7505 ####[facility] [address] [place], [address] WBC (Bld) [#/Vol] 8.5 10*3/uL Normal 4.4-11.0 [facility] Comment on above: Performed By: #### L 100.0100, L500.2500, L503.6588 ####[facility] [address] [place], [address] Carbon dioxide, total [Moles /volume] in Central venous bloodOrdered By: Gustabo Pérez on 11-22-2024 CO2 [Moles/Vol] 21.6 mmol/L 21.0-32.0 [facility] Cardiology Visit Reporton Cardiology Visit Report Normal [facility] Chest PA and Lateralon 11-22 Chest PA and Lateral Normal [facility] Chloride assayOrdered By: Lydia Pérez on 11-22-2024 Chloride [Moles/Vol] 102 mmol/L 98-108 [facility] Eosinophil percentageOrdered By: Gustabo Pérez on 11-22-2024 Eosinophils/100 WBC (Bld) 1.5 % 0-5 [facility] Erythrocyte distribution wid th ratioOrdered By: Gustabo Pérez on 11-22-2024 Erythrocyte distribution width (RBC) [Ratio] 13.8 % 11.6-14.6 [facility] Erythrocyte distribution wid th standard deviationOrdered By: Gustabo Pérez on 11-22-2024 Erythrocyte distribution width (RBC) [Ratio] 47.0 fl High 35.1-43.9 [facility] Glomerular filtration rate ( GFR) estimation/1.73 sq m using serum, plasma, or whole bOrdered By: Gustabo Pérez on 11-22-2024 GFR/1.73 sq M.predicted among non-blacks MDRD (S/P/Bld) [Vol rate/Area] 25 mL/min/{1.73_m2} Low >60 [facility] Hematocrit Auto (Bld) [Volum e fraction]Ordered By: Gustabo Pérez on 11-22-2024 Hematocrit (Bld) [Volume fraction] 36.5 % Low 40-54 [facility] Hemoglobin measurementOrdere d By: Gustabo Pérez on 11-22-2024 Hemoglobin (Bld) [Mass/Vol] 11.8 g/dL Low 13.0-16.5 [facility] Immature granulocytes/100 WB C Auto (Bld)Ordered By: Gustabo Pérez on 11-22-2024 Immature granulocytes/100 WBC (Bld) 0.500 % 0.0-0.9 [facility] L503.7505on 11-22-2024 Natriuretic peptide B (Bld) [Mass/Vol] 188 pg/mL Normal <=1800 [facility] Comment on above: Result Comment: Hear t Failure Unlikely: < 300 pg/mLHeart Failure Likely< 50 Years: > 450 pg/mL50-75 Years: > 900 pg/mL>75 Years: > 1800 pg/mL Performed By: #### L 100.0100, L500.2500, L503.7505 ####[facility] [address] [place], [address] MCV (mean corpuscular volume ) determinationOrdered By: Gustabo Pérez on 11-22-2024 MCV (RBC) [Entitic vol] 91.7 fL 80-94 [facility] Mean corpuscular hemoglobin (MCH) determinationOrdered By: Gustabo Pérez on 11-22-2024 MCH (RBC) [Entitic mass] 29.6 pg 27.0-32.0 [facility] Monocyte percentageOrdered B y: Gustabo Pérez on 11-22-2024 Monocytes/100 WBC (Bld) 9.0 % 0-10 [facility] Natriuretic peptide.B prohor efrem N-Terminal [Mass/volume] in Serum or PlasmaOrdered By: Gustabo Pérez on 11-22-2024 Natriuretic peptide.B prohormone N-Terminal [Mass/Vol] 188 pg/mL <1800 [facility] Neutrophil percentageOrdered By: Gustabo Pérez on 11-22-2024 Neutrophils/100 WBC (Bld) 72.5 % High 47-70 [facility] Platelet countOrdered By: Lydia Pérez on 11-22-2024 Platelets (Bld) [#/Vol] 148 10*3/uL Low 150-450 [facility] Potassium measurement (mass/ volume)Ordered By: Gustabo Pérez on 11-22-2024 Potassium (Unsp spec) [Mass/Vol] 4.8 mmol/L 3.3-5.1 [facility] RBC Auto (Bld) [#/Vol]Ordere d By: Gustabo Pérez on 11-22-2024 RBC (Bld) [#/Vol] 3.98 10*6/uL Low 4.6-6.2 [facility] Serum creatinine measurement (mass/volume)Ordered By: Gustabo Pérez on 11-22-2024 Creatinine [Mass/Vol] 2.51 mg/dL High 0.70-1.20 [facility] Serum glucose measurement (m ass/volume)Ordered By: Gustabo Pérez on 11-22-2024 Glucose [Mass/Vol] 262 mg/dL High 70-99 [facility] Serum or plasma calcium francine urement (mass/volume)Ordered By: Gustabo Pérez on 11-22-2024 Calcium [Mass/Vol] 9.1 mg/dL 7.6-11.0 [facility] Serum or plasma urea nitroge n measurement (mass/volume)Ordered By: Gustabo Pérez on 11-22-2024 Urea nitrogen [Mass/Vol] 39 mg/dL High 4-19 [facility] Sodium levelOrdered By: Gustabo Pérez on 11-22-2024 Sodium [Moles/Vol] 139 mmol/L 133-145 [facility] White blood cell (WBC) count Ordered By: Gustabo Pérez on 11-22-2024 WBC (Bld) [#/Vol] 8.5 10*3/uL 4.4-11.0 [facility] Shoulder min 2 Viewson 11-20 Shoulder min 2 Views Normal [facility] Cardiovascular stress test r eportOrdered By: Jose Hay on 11-13-2024 Study report [facility] [address] [place] [address] MR#: [id number] Acct: [id number] Name: ERIBERTO RICO Rep #: [id number] : 1945 79 From: Jose Hay MD Primary Care: Dr. 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 This note was generated with Social Medianation software. It may contain incorrectwords, spelling, and punctuation that were not noted in checking the note beforesigning. 11/13/24 1539 Date _ Jose Hay MD CC: YRN Pérez; Dr. Marycarmen Rodriguez, DO ~ Date Dictated: 11/13/241536 Date Transcribed: 11/13/241536 Net Solutions Architect: HARSH Alvarez [facility] Work Phone: Stress Reporton 11-13-2024 Stress Report Normal [facility] Echo Complete W/ Contraston 11-10-2024 Echo Complete W/ Contrast Normal [facility] Echocardiogram study reportO rdered By: Lanec Rodriguez on 11-10-2024 Study report [facility] [address] [place] [address] Echo Complete W/ Contrast 11/10/24 0920 MR#: [id number] Acct: [id number] Name: ERIBERTO RICO Rep #:[id number] : 1945 79 From: Lance Hooker Attending Dr: YRN Herr Sta tus: [facility] CLI Ordering Dr: Maren Olivas Driss e: 11/10/24 Location: [facility] Sex: M C Admitted: Reason For [...] ~ Date Dictated: 11/10/24919 Date Transcribed: 11/10/241212 Net Solutions Architect: Signed [facility] Absolute lymphocyte countOrd ered By: Marycarmen Rodriguez on 11-09-2024 Lymphocytes Auto (Unsp spec) [#/Vol] 1.23 10*3/uL 0.83-4.51 [facility] Absolute neutrophil countOrd ered By: Marycarmen Rodriguez on 11-09-2024 Neutrophils (Bld) [#/Vol] 4.1 10*3/uL 2.0-7.7 [facility] Anion gap in Serum or Plasma Ordered By: Marycarmen Rodriguez on 11-09-2024 Anion gap [Moles/Vol] 14 mmol/L - [facility] Automated lymphocyte count a s percentage of total leukocytesOrdered By: Marycarmen Rodriguez on 11-09-2024 Lymphocytes/100 WBC Auto (Unsp spec) 19.9 % [facility] BUN/creatinine ratioOrdered By: Marycarmen Rodriguez on 11-09-2024 Urea nitrogen/Creatinine [Mass ratio] 19.7 mg/mg - [facility] Basic Metabolic Profile (BMP )on 11-09-2024 BUN/CRE 19.7 RATIO Normal - [facility] Comment on above: Performed By: #### L 503.7505, L500.2500, L100.0100 ####[facility] [address] [place], [address] Calcium [Mass/Vol] 9.3 mg/dL Normal 7.6-11.0 [facility] Comment on above: Performed By: #### L 503.7505, L500.2500, L100.0100 ####[facility] [address] [place] [place], [address] Chloride [Moles/Vol] 102 mmol/L Normal 98-108 [facility] Comment on above: Performed By: #### L 503.7505, L500.2500, L100.0100 ####[facility] [address] [place] [place], [address] CO2 [Moles/Vol] 22.5 mmol/L Normal 21.0-32.0 [facility] Comment on above: Performed By: #### L 503.7505, L500.2500, L100.0100 ####[facility] [address] [place], [address] Creatinine [Mass/Vol] 2.49 mg/dL High 0.70-1.20 [facility] Comment on above: Performed By: #### L 503.7505, L500.2500, L100.0100 ####[facility] [address] [place], [address] GAP 14 Normal 5-15 [facility] Comment on above: Performed By: #### L 503.7505, L500.2500, L100.0100 ####[facility] [address] [place], [address] GFR/1.73 sq M.predicted among non-blacks MDRD (S/P/Bld) [Vol rate/Area] 26 mL/min/{1.73_m2} Low >60 [facility] Comment on above: Result Comment: mL/m in/1.73m2 CKD-EPI Creatinine Equation (2020) Performed By: #### L 503.7505, L500.2500, L100.0100 ####[facility] [address] [place], [address] Glucose [Mass/Vol] 169 mg/dL High 70-99 [facility] Comment on above: Performed By: #### L 503.7505, L500.2500, L100.0100 ####[facility] [address] [place], [address] Potassium [Moles/Vol] 4.6 mmol/L Normal 3.3-5.1 [facility] Comment on above: Performed By: #### L 503.7505, L500.2500, L100.0100 ####[facility] [address] [place], [address] Sodium [Moles/Vol] 139 mmol/L Normal 133-145 [facility] Comment on above: Performed By: #### L 503.7505, L500.2500, L100.0100 ####[facility] [address] [place], [address] Urea nitrogen [Mass/Vol] 49 mg/dL High 4-19 [facility] Comment on above: Performed By: #### L 503.7505, L500.2500, L100.0100 ####[facility] [address] [place], [address] Basophil percentageOrdered B y: Marycarmen Rodriguez on 11-09-2024 Basophils/100 WBC (Bld) 0.3 % 0-1 [facility] CBC W/Diff, Automatedon 10-31 Absolute Lymph 1.23 X10 3/uL Normal 0.83-4.51 [facility] Comment on above: Performed By: #### L 503.7505, L500.2500, L100.0100 ####[facility] [address] [place], [address] Absolute Neut 4.1 X10 3/uL Normal 2.0-7.7 [facility] Comment on above: Performed By: #### L 503.7505, L500.2500, L100.0100 ####[facility] [address] [place], [address] Basophils/100 WBC (Bld) 0.3 % Normal 0-1 [facility] Comment on above: Performed By: #### L 503.7505, L500.2500, L100.0100 ####[facility] [address] [place], [address] Eosinophils/100 WBC (Bld) 2.4 % Normal 0-5 [facility] Comment on above: Performed By: #### L 503.7505, L500.2500, L100.0100 ####[facility] [address] [place], [address] Erythrocyte distribution width (RBC) [Ratio] 14.1 % Normal 11.6-14.6 [facility] Comment on above: Performed By: #### L 503.7505, L500.2500, L100.0100 ####[facility] [address] [place], [address] Hematocrit (Bld) [Volume fraction] 38.2 % Low 40-54 [facility] Comment on above: Performed By: #### L 503.7505, L500.2500, L100.0100 ####[facility] [address] [place], [address] Hemoglobin (Bld) [Mass/Vol] 12.2 g/dL Low 13.0-16.5 [facility] Comment on above: Performed By: #### L 503.7505, L500.2500, L100.0100 ####[facility] [address] [place], [address] IG% 0.500 Normal 0.0-0.9 [facility] Comment on above: Result Comment: IG% - Immature Granulocytes (promyelocytes, myelocytes andmetamyelocytes) > 1% indicates that a LEFT SHIFT is Present. Performed By: #### L 503.7505, L500.2500, L100.0100 ####[facility] [address] [place], [address] Lymphocytes/100 WBC (Bld) 19.9 % Normal 19-41 [facility] Comment on above: Performed By: #### L 503.7505, L500.2500, L100.0100 ####[facility] [address] [place], [address] MCH (RBC) [Entitic mass] 29.6 pg Normal 27.0-32.0 [facility] Comment on above: Performed By: #### L 503.7505, L500.2500, L100.0100 ####[facility] [address] [place], [address] MCHC (RBC) [Mass/Vol] 31.9 g/dL Low 32-36 [facility] Comment on above: Performed By: #### L 503.7505, L500.2500, L100.0100 ####[facility] [address] [place], [address] MCV (RBC) [Entitic vol] 92.7 fL Normal 80-94 [facility] Comment on above: Performed By: #### L 503.7505, L500.2500, L100.0100 ####[facility] [address] [place], [address] Monocytes/100 WBC (Bld) 10.4 % High 0-10 [facility] Comment on above: Performed By: #### L 503.7505, L500.2500, L100.0100 ####[facility] [address] [place], [address] Neutrophils/100 WBC (Bld) 66.5 % Normal 47-70 [facility] Comment on above: Performed By: #### L 503.7505, L500.2500, L100.0100 ####[facility] [address] [place], [address] Nucleated RBC (Bld) [#/Vol] 0 10*3/uL Normal 0-5 [facility] Comment on above: Performed By: #### L 503.7505, L500.2500, L100.0100 ####[facility] [address] [place], [address] Platelet mean volume (Bld) [Entitic vol] 12.7 fL High 6.2-12.0 [facility] Comment on above: Performed By: #### L 503.7505, L500.2500, L100.0100 ####[facility] [address] [place], [address] Platelets (Bld) [#/Vol] 120 10*3/uL Low 150-450 [facility] Comment on above: Performed By: #### L 503.7505, L500.2500, L100.0100 ####[facility] [address] [place], [address] RBC (Bld) [#/Vol] 4.12 10*6/uL Low 4.6-6.2 [facility] Comment on above: Performed By: #### L 503.7505, L500.2500, L100.0100 ####[facility] [address] [place], [address] RDW SD 47.8 fl High 35.1-43.9 [facility] Comment on above: Performed By: #### L 503.7505, L500.2500, L100.0100 ####[facility] [address] [place], [address] WBC (Bld) [#/Vol] 6.2 10*3/uL Normal 4.4-11.0 [facility] Comment on above: Performed By: #### L 503.7505, L500.2500, L100.0100 ####[facility] [address] [place], [address] Carbon dioxide, total [Moles /volume] in Central venous bloodOrdered By: Marycarmen Rodriguez on 11-09-2024 CO2 [Moles/Vol] 22.5 mmol/L 21.0-32.0 [facility] Chloride assayOrdered By: Ap Rodriguez on 11-09-2024 Chloride [Moles/Vol] 102 mmol/L 98-108 [facility] Eosinophil percentageOrdered By: Marycarmen Rodriguez on 11-09-2024 Eosinophils/100 WBC (Bld) 2.4 % 0-5 [facility] Erythrocyte distribution wid th ratioOrdered By: Marycarmen Rodriguez on 11-09-2024 Erythrocyte distribution width (RBC) [Ratio] 14.1 % 11.6-14.6 [facility] Erythrocyte distribution wid th standard deviationOrdered By: Marycarmen Rodriguez on 11-09-2024 Erythrocyte distribution width (RBC) [Ratio] 47.8 fl High 35.1-43.9 [facility] Glomerular filtration rate ( GFR) estimation/1.73 sq m using serum, plasma, or whole bOrdered By: Marycarmen Rodriguez on 11-09-2024 GFR/1.73 sq M.predicted among non-blacks MDRD (S/P/Bld) [Vol rate/Area] 26 mL/min/{1.73_m2} Low >60 [facility] Comment on above: mL/min/1.73m2 CKD-EP I Creatinine Equation (2020) Hematocrit Auto (Bld) [Volum e fraction]Ordered By: Marycarmen Rodriguez on 11-09-2024 Hematocrit (Bld) [Volume fraction] 38.2 % Low 40-54 [facility] Hemoglobin measurementOrdere d By: Marycarmen Rodriguez on 11-09-2024 Hemoglobin (Bld) [Mass/Vol] 12.2 g/dL Low 13.0-16.5 [facility] Immature granulocytes/100 WB C Auto (Bld)Ordered By: Marycarmen Rodriguez on 11-09-2024 Immature granulocytes/100 WBC (Bld) 0.500 % 0.0-0.9 [facility] Comment on above: IG% - Immature Granu locytes (promyelocytes, myelocytes and metamyelocytes) > 1% indicates that a LEFT SHIFT is Present. L503.7505on 07-10-2025 Natriuretic peptide B (Bld) [Mass/Vol] 91 pg/mL Normal <=1800 [facility] Comment on above: Result Comment: Hear t Failure Unlikely: < 300 pg/mLHeart Failure Likely< 50 Years: > 450 pg/mL50-75 Years: > 900 pg/mL>75 Years: > 1800 pg/mL Performed By: #### L 503.7505, L500.2500, L100.0100 ####[facility] [address] [place], [address] MCV (mean corpuscular volume ) determinationOrdered By: Marycarmen Rodriguez on 11-09-2024 MCV (RBC) [Entitic vol] 92.7 fL 80-94 [facility] Mean corpuscular hemoglobin (MCH) determinationOrdered By: Marycarmen Rodriguez on 11-09-2024 MCH (RBC) [Entitic mass] 29.6 pg 27.0-32.0 [facility] Mean corpuscular hemoglobin concentration (MCHC) determinationOrdered By: Marycarmen Rodriguez on 11-09-2024 MCHC (RBC) [Mass/Vol] 31.9 g/dL Low 32-36 [facility] Mean platelet volume determi nationOrdered By: Marycarmen Rodriguez on 11-09-2024 Platelet mean volume (Bld) [Entitic vol] 12.7 fL High 6.2-12.0 [facility] Monocyte percentageOrdered B y: Marycarmen Rodriguez on 11-09-2024 Monocytes/100 WBC (Bld) 10.4 % High 0-10 [facility] Natriuretic peptide.B prohor efrem N-Terminal [Mass/volume] in Serum or PlasmaOrdered By: Marycarmen Rodriguez on 11-09-2024 Natriuretic peptide.B prohormone N-Terminal [Mass/Vol] 91 pg/mL <1800 [facility] Comment on above: Heart Failure Unlike ly: < 300 pg/mLHeart Failure Likely< 50 Years: > 450 pg/mL50-75 Years: > 900 pg/mL>75 Years: > 1800 pg/mL Neutrophil percentageOrdered By: Marycarmen Rodriguez on 11-09-2024 Neutrophils/100 WBC (Bld) 66.5 % 47-70 [facility] Nucleated red blood cell per centageOrdered By: Marycarmen Rodriguez on 11-09-2024 Nucleated RBC/100 WBC (Bld) [Ratio] 0 % 0-5 [facility] Platelet countOrdered By: Ap Rodriguez on 11-09-2024 Platelets (Bld) [#/Vol] 120 10*3/uL Low 150-450 [facility] Potassium measurement (mass/ volume)Ordered By: Marycarmen Rodriguez on 11-09-2024 Potassium (Unsp spec) [Mass/Vol] 4.6 mmol/L 3.3-5.1 [facility] RBC Auto (Bld) [#/Vol]Ordere d By: Marycarmen Rodriguez on 11-09-2024 RBC (Bld) [#/Vol] 4.12 10*6/uL Low 4.6-6.2 [facility] Serum creatinine measurement (mass/volume)Ordered By: Marycarmen Rodriguez on 11-09-2024 Creatinine [Mass/Vol] 2.49 mg/dL High 0.70-1.20 [facility] Serum glucose measurement (m ass/volume)Ordered By: Marycarmen Rodriguez on 11-09-2024 Glucose [Mass/Vol] 169 mg/dL High 70-99 [facility] Serum or plasma calcium francine urement (mass/volume)Ordered By: Marycarmen Rodriguez on 11-09-2024 Calcium [Mass/Vol] 9.3 mg/dL 7.6-11.0 [facility] Serum or plasma urea nitroge n measurement (mass/volume)Ordered By: Marycarmen Rodriguez on 11-09-2024 Urea nitrogen [Mass/Vol] 49 mg/dL High 4-19 [facility] Sodium levelOrdered By: Marycarmen Rodriguez on 11-09-2024 Sodium [Moles/Vol] 139 mmol/L 133-145 [facility] White blood cell (WBC) count Ordered By: Marycarmen Rodriguez on 11-09-2024 WBC (Bld) [#/Vol] 6.2 10*3/uL 4.4-11.0 [facility] Pulmonary Visit Reporton Pulmonary Visit Report Normal [facility] Cardiology Visit Reporton Cardiology Visit Report Normal [facility] L3410.9992on 10-23-2024 [facility] COM[facility] Normal . [facility] Comment on above: Order Comment: [id number] 0MED TOX Result Comment: Test Ordered: [id number] R10-Lsutvh+TE6Jsdpdggznyge Screen, Urine Negative ng/mL UI Reference Range: Zyabyv=669Rbfxutzbucm test includes Amphetamine and Methamphetamine.Barbiturates Negative ng/mL UI Reference Range: Xepkyg=467Wjrmywojozhndos Negative ng/mL UI Reference Range: Auitcc=317Gprwdtk (Metab.), Urine Negative ng/mL UI Reference Range: Wjwsfy=478Fwvgqwu Note: ng/mL UI See Final Results Reference Range: Djuiiz=453Mdenoc test includes Codeine, Morphine, Hydromorphone, Hydrocodone.Opiates Positive [A ] UI Reference Range: Tqtpmb=685Txswso test includes Codeine, Morphine, Hydromorphone, Hydrocodone.Codeine Negative UI Reference Range: Emavkp=392Wbnxcrns Negative UI Reference Range: Jwggoh=601Kondushdnrzlr Negative UI Reference Range: Zbeuzm=594Tjubtubhzwt Positive [A ] UI Reference Range: .Hydrocodone Conf, MS, UR 349 ng/mL UI Reference Range: Skqzuy=2042-Pvjroeuybpfdsx, Urine Negative ng/mL UI Reference Range: Cutoff=10Oxycodone/Oxymorphone, Urine Negative ng/mL UI Reference Range: Glhtds=003Oyii includes Oxycodone and OxymorphonePCP, Urine Negative ng/mL UI Reference Range: Cutoff=25Methadone Screen, Urine Negative ng/mL UI Reference Range: Weopwo=220Xygjypclyosf, Urine Negative ng/mL UI Reference Range: Pljqou=735Nhbpoilt, Urine Negative ng/mL UI Reference Range: Cutoff=2.0Test includes Fentanyl and NorfentanylThis test was developed and its performance characteristicsdetermined by [facility]. It has not been cleared orapproved by the Food and Drug Administration.Tramadol Negative ng/mL UI Reference Range: Xqwdgk=424Iyufmymxjbpip, Urine Negative ng/mL UI Reference Range: Cutoff=10Creatinine, Urine 36.9 mg/dL UI Reference Range: 20.0-300.0pH, Urine 6.1 UI Reference Range: 4.5-8.9Performed at: UI - [facility]TS [id number] [facility], [place], [place] [id number] Director: Eirk Wallis PhD, Phone: [phone] at: [facility] [place], [place] [id number] Director: Bharath Hawthorne PhD, Phone: [phone] Performed By: #### L 3410.9992, L505.5000 ####[facility] [address] [place], [place], [id number] Absolute lymphocyte countOrd ered By: Gustabo Pérez on 10-18-2024 Lymphocytes Auto (Unsp spec) [#/Vol] 1.15 10*3/uL 0.83-4.51 [facility] Absolute neutrophil countOrd ered By: Gustabo Pérez on 10-18-2024 Neutrophils (Bld) [#/Vol] 4.6 10*3/uL 2.0-7.7 [facility] Amphetamine detection with 1 000 ng/mL as cutoffOrdered By: Brooks Carpenter on 10-18-2024 Amphetamines Screen method >1000 ng/mL Ql (U) Negative < 200 ng/mL [facility] Anion gap in Serum or Plasma Ordered By: Gustabo Pérez on 10-18-2024 Anion gap [Moles/Vol] 12 mmol/L 5-15 [facility] Automated lymphocyte count a s percentage of total leukocytesOrdered By: Gustabo Pérez on 10-18-2024 Lymphocytes/100 WBC Auto (Unsp spec) 17.4 % Low 19- [facility] BUN/creatinine ratioOrdered By: Gustabo Pérez on 10-18-2024 Urea nitrogen/Creatinine [Mass ratio] 16.4 mg/mg 10- [facility] Basic Metabolic Profile (BMP )on 10-18-2024 BUN/CRE 16.4 RATIO Normal - [facility] Comment on above: Performed By: #### L 500.2500, L100.0100, L503.0955 ####[facility] [address] [place], [address] Calcium [Mass/Vol] 9.0 mg/dL Normal 7.6-11.0 [facility] Comment on above: Performed By: #### L 500.2500, L100.0100, L503.7505 ####[facility] [address] [place], [address] Chloride [Moles/Vol] 103 mmol/L Normal 98-108 [facility] Comment on above: Performed By: #### L 500.2500, L100.0100, L503.7505 ####[facility] [address] [place], [address] CO2 [Moles/Vol] 23.9 mmol/L Normal 21.0-32.0 [facility] Comment on above: Performed By: #### L 500.2500, L100.0100, L503.7505 ####[facility] [address] [place], [address] Creatinine [Mass/Vol] 2.00 mg/dL High 0.70-1.20 [facility] Comment on above: Performed By: #### L 500.2500, L100.0100, L503.7505 ####[facility] [address] [place], [address] GAP 12 Normal 5-15 [facility] Comment on above: Performed By: #### L 500.2500, L100.0100, L503.7505 ####[facility] [address] [place], [address] GFR/1.73 sq M.predicted among non-blacks MDRD (S/P/Bld) [Vol rate/Area] 33 mL/min/{1.73_m2} Low >60 [facility] Comment on above: Result Comment: mL/m in/1.73m2 CKD-EPI Creatinine Equation (2020) Performed By: #### L 500.2500, L100.0100, L503.7505 ####[facility] [address] [place], [address] Glucose [Mass/Vol] 125 mg/dL High 70-99 [facility] Comment on above: Performed By: #### L 500.2500, L100.0100, L503.7505 ####[facility] [address] [place], [address] Potassium [Moles/Vol] 4.8 mmol/L Normal 3.3-5.1 [facility] Comment on above: Performed By: #### L 500.2500, L100.0100, L503.7505 ####[facility] [address] [place], [address] Sodium [Moles/Vol] 139 mmol/L Normal 133-145 [facility] Comment on above: Performed By: #### L 500.2500, L100.0100, L503.7505 ####[facility] [address] [place], [address] Urea nitrogen [Mass/Vol] 33 mg/dL High 4-19 [facility] Comment on above: Performed By: #### L 500.2500, L100.0100, L503.7505 ####[facility] [address] [place], [address] Basophil percentageOrdered B y: Gustabo Pérez on 10-18-2024 Basophils/100 WBC (Bld) 0.2 % 0-1 [facility] CBC W/Diff, Automatedon 10-01 Absolute Lymph 1.15 X10 3/uL Normal 0.83-4.51 [facility] Comment on above: Performed By: #### L 500.2500, L100.0100, L503.7505 ####[facility] [address] [place], [address] Absolute Neut 4.6 X10 3/uL Normal 2.0-7.7 [facility] Comment on above: Performed By: #### L 500.2500, L100.0100, L503.7505 ####[facility] [address] [place], [address] Basophils/100 WBC (Bld) 0.2 % Normal 0-1 [facility] Comment on above: Performed By: #### L 500.2500, L100.0100, L503.7505 ####[facility] [address] [place], [address] Eosinophils/100 WBC (Bld) 2.0 % Normal 0-5 [facility] Comment on above: Performed By: #### L 500.2500, L100.0100, L503.7505 ####[facility] [address] [place], [address] Erythrocyte distribution width (RBC) [Ratio] 14.3 % Normal 11.6-14.6 [facility] Comment on above: Performed By: #### L 500.2500, L100.0100, L503.7505 ####[facility] [address] [place], [address] Hematocrit (Bld) [Volume fraction] 36.4 % Low 40-54 [facility] Comment on above: Performed By: #### L 500.2500, L100.0100, L503.7505 ####[facility] [address] [place], [address] Hemoglobin (Bld) [Mass/Vol] 11.5 g/dL Low 13.0-16.5 [facility] Comment on above: Performed By: #### L 500.2500, L100.0100, L503.7505 ####[facility] [address] [place], [address] IG% 0.600 Normal 0.0-0.9 [facility] Comment on above: Result Comment: IG% - Immature Granulocytes (promyelocytes, myelocytes andmetamyelocytes) > 1% indicates that a LEFT SHIFT is Present. Performed By: #### L 500.2500, L100.0100, L503.7505 ####[facility] [address] [place], [address] Lymphocytes/100 WBC (Bld) 17.4 % Low 19-41 [facility] Comment on above: Performed By: #### L 500.2500, L100.0100, L503.7505 ####[facility] [address] [place], [address] MCH (RBC) [Entitic mass] 29.4 pg Normal 27.0-32.0 [facility] Comment on above: Performed By: #### L 500.2500, L100.0100, L503.7505 ####[facility] [address] [place], [address] MCHC (RBC) [Mass/Vol] 31.6 g/dL Low 32-36 [facility] Comment on above: Performed By: #### L 500.2500, L100.0100, L503.7505 ####[facility] [address] [place], [address] MCV (RBC) [Entitic vol] 93.1 fL Normal 80-94 [facility] Comment on above: Performed By: #### L 500.2500, L100.0100, L503.7505 ####[facility] [address] [place], [address] Monocytes/100 WBC (Bld) 10.4 % High 0-10 [facility] Comment on above: Performed By: #### L 500.2500, L100.0100, L503.7505 ####[facility] [address] [place], [address] Neutrophils/100 WBC (Bld) 69.4 % Normal 47-70 [facility] Comment on above: Performed By: #### L 500.2500, L100.0100, L503.7505 ####[facility] [address] [place], [address] Nucleated RBC (Bld) [#/Vol] 0 10*3/uL Normal 0-5 [facility] Comment on above: Performed By: #### L 500.2500, L100.0100, L503.7505 ####[facility] [address] [place], [address] Platelet mean volume (Bld) [Entitic vol] 12.9 fL High 6.2-12.0 [facility] Comment on above: Performed By: #### L 500.2500, L100.0100, L503.7505 ####[facility] [address] [place], [address] Platelets (Bld) [#/Vol] 152 10*3/uL Normal 150-450 [facility] Comment on above: Performed By: #### L 500.2500, L100.0100, L503.7505 ####[facility] [address] [place], [address] RBC (Bld) [#/Vol] 3.91 10*6/uL Low 4.6-6.2 [facility] Comment on above: Performed By: #### L 500.2500, L100.0100, L503.7505 ####[facility] [address] [place], [address] RDW SD 48.5 fl High 35.1-43.9 [facility] Comment on above: Performed By: #### L 500.2500, L100.0100, L503.7505 ####[facility] [address] [place], [address] WBC (Bld) [#/Vol] 6.6 10*3/uL Normal 4.4-11.0 [facility] Comment on above: Performed By: #### L 500.2500, L100.0100, L503.7505 ####[facility] [address] [place], [address] Carbon dioxide, total [Moles /volume] in Central venous bloodOrdered By: Gustabo Pérez on 10-18-2024 CO2 [Moles/Vol] 23.9 mmol/L 21.0-32.0 [facility] Chloride assayOrdered By: Lydia Pérez on 10-18-2024 Chloride [Moles/Vol] 103 mmol/L 98-108 [facility] Eosinophil percentageOrdered By: Gustabo Pérez on 10-18-2024 Eosinophils/100 WBC (Bld) 2.0 % 0-5 [facility] Erythrocyte distribution wid th ratioOrdered By: Gustabo Pérez on 10-18-2024 Erythrocyte distribution width (RBC) [Ratio] 14.3 % 11.6-14.6 [facility] Erythrocyte distribution wid th standard deviationOrdered By: Gustabo Pérez on 10-18-2024 Erythrocyte distribution width (RBC) [Ratio] 48.5 fl High 35.1-43.9 [facility] Glomerular filtration rate ( GFR) estimation/1.73 sq m using serum, plasma, or whole bOrdered By: Gustabo Pérez on 10-18-2024 GFR/1.73 sq M.predicted among non-blacks MDRD (S/P/Bld) [Vol rate/Area] 33 mL/min/{1.73_m2} Low >60 [facility] Comment on above: mL/min/1.73m2 CKD-EP I Creatinine Equation (2020) Hematocrit Auto (Bld) [Volum e fraction]Ordered By: Gustabo Pérez on 10-18-2024 Hematocrit (Bld) [Volume fraction] 36.4 % Low 40-54 [facility] Hemoglobin measurementOrdere d By: Gustabo Pérez on 10-18-2024 Hemoglobin (Bld) [Mass/Vol] 11.5 g/dL Low 13.0-16.5 [facility] Immature granulocytes/100 WB C Auto (Bld)Ordered By: Gustabo Pérez on 10-18-2024 Immature granulocytes/100 WBC (Bld) 0.600 % 0.0-0.9 [facility] Comment on above: IG% - Immature Granu locytes (promyelocytes, myelocytes and metamyelocytes) > 1% indicates that a LEFT SHIFT is Present. L503.7505on 10-18-2024 Natriuretic peptide B (Bld) [Mass/Vol] 200 pg/mL Normal <=1800 [facility] Comment on above: Result Comment: Hear t Failure Unlikely: < 300 pg/mLHeart Failure Likely< 50 Years: > 450 pg/mL50-75 Years: > 900 pg/mL>75 Years: > 1800 pg/mL Performed By: #### L 500.2500, L100.0100, L503.7505 ####[facility] [address] [place], [address] MCV (mean corpuscular volume ) determinationOrdered By: Gustabo Pérez on 10-18-2024 MCV (RBC) [Entitic vol] 93.1 fL 80-94 [facility] Mean corpuscular hemoglobin (MCH) determinationOrdered By: Gustabo Pérez on 10-18-2024 MCH (RBC) [Entitic mass] 29.4 pg 27.0-32.0 [facility] Mean corpuscular hemoglobin concentration (MCHC) determinationOrdered By: Gustabo Pérez on 10-18-2024 MCHC (RBC) [Mass/Vol] 31.6 g/dL Low 32-36 [facility] Mean platelet volume determi nationOrdered By: Gustabo Pérez on 10-18-2024 Platelet mean volume (Bld) [Entitic vol] 12.9 fL High 6.2-12.0 [facility] Monocyte percentageOrdered B y: Gustabo Pérez on 10-18-2024 Monocytes/100 WBC (Bld) 10.4 % High 0-10 [facility] Natriuretic peptide.B prohor efrem N-Terminal [Mass/volume] in Serum or PlasmaOrdered By: Gustabo Pérez on 10-18-2024 Natriuretic peptide.B prohormone N-Terminal [Mass/Vol] 200 pg/mL <1800 [facility] Comment on above: Heart Failure Unlike ly: < 300 pg/mLHeart Failure Likely< 50 Years: > 450 pg/mL50-75 Years: > 900 pg/mL>75 Years: > 1800 pg/mL Neutrophil percentageOrdered By: Gustabo Pérez on 10-18-2024 Neutrophils/100 WBC (Bld) 69.4 % 47-70 [facility] No Panel InformationOrdered By: Brooks Carpenter on 10-18-2024 Urine Buprenorphine Qualitative Negative < 200 ng/mL [facility] Urine Oxycodone Screen Negative < 100 ng/mL [facility] Negative < 200 ng/mL [facility] Nucleated red blood cell per centageOrdered By: Gustabo Pérez on 10-18-2024 Nucleated RBC/100 WBC (Bld) [Ratio] 0 % 0-5 [facility] Platelet countOrdered By: Lydia Pérez on 10-18-2024 Platelets (Bld) [#/Vol] 152 10*3/uL 150-450 [facility] Potassium measurement (mass/ volume)Ordered By: Gustabo Pérez on 10-18-2024 Potassium (Unsp spec) [Mass/Vol] 4.8 mmol/L 3.3-5.1 [facility] Quantitative urine opiates m easurementOrdered By: Brooks Carpenter on 10-18-2024 Opiates Ql (U) Positive < 300 ng/mL [facility] Comment on above: If confirmation test ing is needed, a separate order will be required to send out testing to the reference laboratory. RBC Auto (Bld) [#/Vol]Ordere d By: Gustabo Pérez on 10-18-2024 RBC (Bld) [#/Vol] 3.91 10*6/uL Low 4.6-6.2 [facility] Screening urine fentanyl ritu surementOrdered By: Brooks Carpenter on 10-18-2024 fentaNYL Screen Ql (U) Negative [facility] Serum creatinine measurement (mass/volume)Ordered By: Gustabo Pérez on 10-18-2024 Creatinine [Mass/Vol] 2.00 mg/dL High 0.70-1.20 [facility] Serum glucose measurement (m ass/volume)Ordered By: Gustabo Pérez on 10-18-2024 Glucose [Mass/Vol] 125 mg/dL High 70-99 [facility] Serum or plasma calcium francine urement (mass/volume)Ordered By: Gustabo Pérez on 10-18-2024 Calcium [Mass/Vol] 9.0 mg/dL 7.6-11.0 [facility] Serum or plasma urea nitroge n measurement (mass/volume)Ordered By: Gustabo Pérez on 10-18-2024 Urea nitrogen [Mass/Vol] 33 mg/dL High 4-19 [facility] Sodium levelOrdered By: Gustabo Pérez on 10-18-2024 Sodium [Moles/Vol] 139 mmol/L 133-145 [facility] Urine Drug Screen (VISTA)on 10-18-2024 AMPHETAMINES Negative Normal <1000 ng/mL [facility] Comment on above: Order Comment: PAIN MANAGMENT Performed By: #### L 3410.9992, L505.5000 ####[facility] [address] [facility] [address] BARBITIURATES Negative Normal < 200 ng/mL [facility] Comment on above: Order Comment: PAIN MANAGMENT Performed By: #### L 3410.9992, L505.5000 ####[facility] [address] [facility] [address] BENZODIAZIPINE Negative Normal < 200 ng/mL [facility] Comment on above: Order Comment: PAIN MANAGMENT Performed By: #### L 3410.9992, L505.5000 ####[facility] [address] [facility] [address] BUP Ur Drug Scr Negative Normal < 200 ng/mL [facility] Comment on above: Order Comment: PAIN MANAGMENT Performed By: #### L 3410.9992, L505.5000 ####[facility] [address] [facility] [address] COCAINE Negative Normal < 300 ng/mL [facility] Comment on above: Order Comment: PAIN MANAGMENT Performed By: #### L 3410.9992, L505.5000 ####[facility] [address] [facility] [address] Fentanyl Negative Normal [facility] Comment on above: Order Comment: PAIN MANAGMENT Performed By: #### L 3410.9992, L505.5000 ####[facility] [address] [facility] [address] METHADONE Negative Normal < 300 ng/mL [facility] Comment on above: Order Comment: PAIN MANAGMENT Performed By: #### L 3410.9992, L505.5000 ####[facility] [address] [place], [address] OPIATES Positive Normal < 300 ng/mL [facility] Comment on above: Order Comment: PAIN MANAGMENT Result Comment: If c onfirmation testing is needed, a separate order will berequired to send out testing to the reference laboratory. Performed By: #### L 3410.9992, L505.5000 ####[facility] [address] [facility] [address] OXYCODONE Negative Normal < 100 ng/mL [facility] Comment on above: Order Comment: PAIN MANAGMENT Performed By: #### L 3410.9992, L505.5000 ####[facility] [address] [place] [address] PCP Negative Normal < 25 ng/mL [facility] Comment on above: Order Comment: PAIN MANAGMENT Performed By: #### L 3410.9992, L505.5000 ####[facility] [address] [place], [address] THC Negative Normal < 50 ng/mL [facility] Comment on above: Order Comment: PAIN MANAGMENT Performed By: #### L 3410.9992, L505.5000 ####[facility] [address] [facility] [address] Urine benzodiazepine levelOr dered By: Brooks Basali on 10-18-2024 Benzodiazepines Ql (U) Negative < 200 ng/mL [facility] Urine cocaine levelOrdered B y: Ayman Basali on 10-18-2024 Cocaine Ql (U) Negative < 300 ng/mL [facility] Urine olroh-0-offuszjfdrvjhe abinol (THC) measurementOrdered By: Brooks Basali on 10-18-2024 Cannabinoids Screen Ql (U) Negative < 50 ng/mL [facility] Urine phencyclidine (PCP) de tectionOrdered By: Brooks Carpenter on 10-18-2024 Phencyclidine Ql (U) Negative < 25 ng/mL [facility] White blood cell (WBC) count Ordered By: Gustabo Pérez on 10-18-2024 WBC (Bld) [#/Vol] 6.6 10*3/uL 4.4-11.0 [facility] Absolute lymphocyte countOrd ered By: Marycarmen ChiuJennifer on 09-29-2024 Lymphocytes Auto (Unsp spec) [#/Vol] 1.35 10*3/uL 0.83-4.51 [facility] Absolute neutrophil countOrd ered By: Marycarmen Rodriguez on 09-29-2024 Neutrophils (Bld) [#/Vol] 9.2 10*3/uL High 2.0-7.7 [facility] Automated lymphocyte count a s percentage of total leukocytesOrdered By: Marycarmen Rodriguez on 09-29-2024 Lymphocytes/100 WBC Auto (Unsp spec) 10.9 % Low 19-41 [facility] Basophil percentageOrdered B y: Marycarmen Rodriguez on 09-29-2024 Basophils/100 WBC (Bld) 0.6 % 0-1 [facility] CBC W/Diff, Automatedon 09-02 Absolute Lymph 1.35 X10 3/uL Normal 0.83-4.51 [facility] Comment on above: Performed By: #### L 503.0106, L100.0100, L503.6550, L503.6150 ####[facility] [address] [place], [address] Absolute Neut 9.2 X10 3/uL High 2.0-7.7 [facility] Comment on above: Performed By: #### L 503.0106, L100.0100, L503.6550, L503.6150 ####[facility] [address] [place], [address] Basophils/100 WBC (Bld) 0.6 % Normal 0-1 [facility] Comment on above: Performed By: #### L 503.0106, L100.0100, L503.6550, L503.6150 ####[facility] [address] [place], [address] Eosinophils/100 WBC (Bld) 0.7 % Normal 0-5 [facility] Comment on above: Performed By: #### L 503.0106, L100.0100, L503.6550, L503.6150 ####[facility] [address] [place], [address] Erythrocyte distribution width (RBC) [Ratio] 14.2 % Normal 11.6-14.6 [facility] Comment on above: Performed By: #### L 503.0106, L100.0100, L503.6550, L503.6150 ####[facility] [address] [place], [address] Hematocrit (Bld) [Volume fraction] 37.4 % Low 40-54 [facility] Comment on above: Performed By: #### L 503.0106, L100.0100, L503.6550, L503.6150 ####[facility] [address] [place], [address] Hemoglobin (Bld) [Mass/Vol] 12.1 g/dL Low 13.0-16.5 [facility] Comment on above: Performed By: #### L 503.0106, L100.0100, L503.6550, L503.6150 ####[facility] [address] [place], [address] IG% 3.600 High 0.0-0.9 [facility] Comment on above: Result Comment: IG% - Immature Granulocytes (promyelocytes, myelocytes andmetamyelocytes) > 1% indicates that a LEFT SHIFT is Present. Performed By: #### L 503.0106, L100.0100, L503.6550, L503.6150 ####[facility] [address] [place], [address] Lymphocytes/100 WBC (Bld) 10.9 % Low 19-41 [facility] Comment on above: Performed By: #### L 503.0106, L100.0100, L503.6550, L503.6150 ####[facility] [address] [place], [address] MCH (RBC) [Entitic mass] 29.6 pg Normal 27.0-32.0 [facility] Comment on above: Performed By: #### L 503.0106, L100.0100, L503.6550, L503.6150 ####[facility] [address] [place], [address] MCHC (RBC) [Mass/Vol] 32.4 g/dL Normal 32-36 [facility] Comment on above: Performed By: #### L 503.0106, L100.0100, L503.6550, L503.6150 ####[facility] [address] [place], [address] MCV (RBC) [Entitic vol] 91.4 fL Normal 80-94 [facility] Comment on above: Performed By: #### L 503.0106, L100.0100, L503.6550, L503.6150 ####[facility] [address] [place], [address] Monocytes/100 WBC (Bld) 9.9 % Normal 0-10 [facility] Comment on above: Performed By: #### L 503.0106, L100.0100, L503.6550, L503.6150 ####[facility] [address] [place], [address] Neutrophils/100 WBC (Bld) 74.3 % High 47-70 [facility] Comment on above: Performed By: #### L 503.0106, L100.0100, L503.6550, L503.6150 ####[facility] [address] [place], [address] Nucleated RBC (Bld) [#/Vol] 0 10*3/uL Normal 0-5 [facility] Comment on above: Performed By: #### L 503.0106, L100.0100, L503.6550, L503.6150 ####[facility] [address] [place], [address] Platelet mean volume (Bld) [Entitic vol] 12.3 fL High 6.2-12.0 [facility] Comment on above: Performed By: #### L 503.0106, L100.0100, L503.6550, L503.6150 ####[facility] [address] [place], [address] Platelets (Bld) [#/Vol] 169 10*3/uL Normal 150-450 [facility] Comment on above: Performed By: #### L 503.0106, L100.0100, L503.6550, L503.6150 ####[facility] [address] [place], [address] RBC (Bld) [#/Vol] 4.09 10*6/uL Low 4.6-6.2 [facility] Comment on above: Performed By: #### L 503.0106, L100.0100, L503.6550, L503.6150 ####[facility] [address] [place], [address] RDW SD 47.4 fl High 35.1-43.9 [facility] Comment on above: Performed By: #### L 503.0106, L100.0100, L503.6550, L503.6150 ####[facility] [address] [place], [address] WBC (Bld) [#/Vol] 12.4 10*3/uL High 4.4-11.0 [facility] Comment on above: Performed By: #### L 503.0106, L100.0100, L503.6550, L503.6150 ####[facility] [address] [place], [place], [id number] Eosinophil percentageOrdered By: Marycarmen Rodriguez on 09-29-2024 Eosinophils/100 WBC (Bld) 0.7 % 0-5 [facility] Erythrocyte distribution wid th ratioOrdered By: Marycarmen Rodriguez on 09-29-2024 Erythrocyte distribution width (RBC) [Ratio] 14.2 % 11.6-14.6 [facility] Erythrocyte distribution wid th standard deviationOrdered By: Marycarmen Rodriguez on 09-29-2024 Erythrocyte distribution width (RBC) [Ratio] 47.4 fl High 35.1-43.9 [facility] Ferritinon 09-29-2024 Ferritin [Mass/Vol] 454 ng/mL High 37-417 [facility] Comment on above: Performed By: #### L 503.0106, L100.0100, L503.6550, L503.6150 ####[facility] [address] [place], [place], [id number] Hematocrit Auto (Bld) [Volum e fraction]Ordered By: Marycarmen Rodriguez on 09-29-2024 Hematocrit (Bld) [Volume fraction] 37.4 % Low 40-54 [facility] Hemoglobin measurementOrdere d By: Marycarmen Rodriguez on 09-29-2024 Hemoglobin (Bld) [Mass/Vol] 12.1 g/dL Low 13.0-16.5 [facility] Immature granulocytes/100 WB C Auto (Bld)Ordered By: Marycarmen Rodriguez on 09-29-2024 Immature granulocytes/100 WBC (Bld) 3.600 % High 0.0-0.9 [facility] Comment on above: IG% - Immature Granu locytes (promyelocytes, myelocytes and metamyelocytes) > 1% indicates that a LEFT SHIFT is Present. Ironon 09-29-2024 Iron [Mass/Vol] 80 ug/dL Normal 65-175 [facility] Comment on above: Performed By: #### L 503.0106, L100.0100, L503.6585, L503.6105 ####[facility] [address] [place], [address] Iron measurement (mass/mass) Ordered By: Marycarmen Rodriguez on 09-29-2024 Iron (Unsp spec) [Mass/Mass] 80 ug/dL 65-175 [facility] MCV (mean corpuscular volume ) determinationOrdered By: Marycarmen Rodriguez on 09-29-2024 MCV (RBC) [Entitic vol] 91.4 fL 80-94 [facility] Mean corpuscular hemoglobin (MCH) determinationOrdered By: Marycarmen Rodriguez on 09-29-2024 MCH (RBC) [Entitic mass] 29.6 pg 27.0-32.0 [facility] Mean corpuscular hemoglobin concentration (MCHC) determinationOrdered By: Marycarmen Rodriguez on 09-29-2024 MCHC (RBC) [Mass/Vol] 32.4 g/dL 32-36 [facility] Mean platelet volume determi nationOrdered By: Marycarmen Rodriguez on 09-29-2024 Platelet mean volume (Bld) [Entitic vol] 12.3 fL High 6.2-12.0 [facility] Monocyte percentageOrdered B y: Marycarmen Rodriguez on 09-29-2024 Monocytes/100 WBC (Bld) 9.9 % 0-10 [facility] Neutrophil percentageOrdered By: Marycarmen Rodriguez on 09-29-2024 Neutrophils/100 WBC (Bld) 74.3 % High 47-70 [facility] Nucleated red blood cell per centageOrdered By: Marycarmen Rodriguez on 09-29-2024 Nucleated RBC/100 WBC (Bld) [Ratio] 0 % 0-5 [facility] Platelet countOrdered By: Ap Rodriguez on 09-29-2024 Platelets (Bld) [#/Vol] 169 10*3/uL 150-450 [facility] RBC Auto (Bld) [#/Vol]Ordere d By: Marycarmen Rodriguez on 09-29-2024 RBC (Bld) [#/Vol] 4.09 10*6/uL Low 4.6-6.2 [facility] Serum or plasma ferritin ritu surement (mass/volume)Ordered By: Marycarmen Rodriguez on 09-29-2024 Ferritin [Mass/Vol] 454 ng/mL High 37-417 [facility] Vitamin B12on 09-29-2024 Cobalamin (Vitamin B12) [Mass/Vol] 766 pg/mL Normal 180-914 [facility] Comment on above: Performed By: #### L 503.0106, L100.0100, L503.6550, L503.6150 ####[facility] [address] [place], [address] Vitamin B12 ser/plasOrdered By: Marycarmen Rodriguez on 09-29-2024 Cobalamin (Vitamin B12) [Mass/Vol] 766 pg/mL 180-914 [facility] White blood cell (WBC) count Ordered By: Marycarmen Rodriguez on 09-29-2024 WBC (Bld) [#/Vol] 12.4 10*3/uL High 4.4-11.0 [facility] Absolute lymphocyte countOrd ered By: ELIAZAR Olivas on 09-20-2024 Lymphocytes Auto (Unsp spec) [#/Vol] 1.44 10*3/uL 0.83-4.51 [facility] Absolute neutrophil countOrd ered By: ELIAZAR Olivas on 09-20-2024 Neutrophils (Bld) [#/Vol] 6.6 10*3/uL 2.0-7.7 [facility] Automated lymphocyte count a s percentage of total leukocytesOrdered By: ELIAZAR Olivas on 09-20-2024 Lymphocytes/100 WBC Auto (Unsp spec) 15.5 % Low 19-41 [facility] Basophil percentageOrdered B y: ELIAZAR Olivas on 09-20-2024 Basophils/100 WBC (Bld) 0.3 % 0-1 [facility] CBC W/Diff, Automatedon 09-01 Absolute Lymph 1.44 X10 3/uL Normal 0.83-4.51 [facility] Comment on above: Performed By: #### L 100.0100, L503.7505 ####[facility] [address] [place], [address] Absolute Neut 6.6 X10 3/uL Normal 2.0-7.7 [facility] Comment on above: Performed By: #### L 100.0100, L503.7505 ####[facility] [address] [place], [address] Basophils/100 WBC (Bld) 0.3 % Normal 0-1 [facility] Comment on above: Performed By: #### L 100.0100, L503.7505 ####[facility] [address] [place], [address] Eosinophils/100 WBC (Bld) 1.5 % Normal 0-5 [facility] Comment on above: Performed By: #### L 100.0100, L503.7505 ####[facility] [address] [place], [address] Erythrocyte distribution width (RBC) [Ratio] 14.1 % Normal 11.6-14.6 [facility] Comment on above: Performed By: #### L 100.0100, L503.7505 ####[facility] [address] [place], [address] Hematocrit (Bld) [Volume fraction] 34.8 % Low 40-54 [facility] Comment on above: Performed By: #### L 100.0100, L503.7505 ####[facility] [address] [place], [address] Hemoglobin (Bld) [Mass/Vol] 11.1 g/dL Low 13.0-16.5 [facility] Comment on above: Performed By: #### L 100.0100, L503.7505 ####[facility] [address] [place], [address] IG% 0.800 Normal 0.0-0.9 [facility] Comment on above: Result Comment: IG% - Immature Granulocytes (promyelocytes, myelocytes andmetamyelocytes) > 1% indicates that a LEFT SHIFT is Present. Performed By: #### L 100.0100, L503.7505 ####[facility] [address] [place], [address] Lymphocytes/100 WBC (Bld) 15.5 % Low 19-41 [facility] Comment on above: Performed By: #### L 100.0100, L503.7505 ####[facility] [address] [place], [address] MCH (RBC) [Entitic mass] 29.4 pg Normal 27.0-32.0 [facility] Comment on above: Performed By: #### L 100.0100, L503.7505 ####[facility] [address] [place], [address] MCHC (RBC) [Mass/Vol] 31.9 g/dL Low 32-36 [facility] Comment on above: Performed By: #### L 100.0100, L503.7505 ####[facility] [address] [place], [address] MCV (RBC) [Entitic vol] 92.1 fL Normal 80-94 [facility] Comment on above: Performed By: #### L 100.0100, L503.7505 ####[facility] [address] [place], [address] Monocytes/100 WBC (Bld) 11.1 % High 0-10 [facility] Comment on above: Performed By: #### L 100.0100, L503.7505 ####[facility] [address] [place], [address] Neutrophils/100 WBC (Bld) 70.8 % High 47-70 [facility] Comment on above: Performed By: #### L 100.0100, L503.7505 ####[facility] [address] [place], [address] Nucleated RBC (Bld) [#/Vol] 0 10*3/uL Normal 0-5 [facility] Comment on above: Performed By: #### L 100.0100, L503.7505 ####[facility] [address] [place], [address] Platelet mean volume (Bld) [Entitic vol] 12.6 fL High 6.2-12.0 [facility] Comment on above: Performed By: #### L 100.0100, L503.7505 ####[facility] [address] [place], [address] Platelets (Bld) [#/Vol] 166 10*3/uL Normal 150-450 [facility] Comment on above: Performed By: #### L 100.0100, L503.7505 ####[facility] [address] [place], [address] RBC (Bld) [#/Vol] 3.78 10*6/uL Low 4.6-6.2 [facility] Comment on above: Performed By: #### L 100.0100, L503.7505 ####[facility] [address] [place], [address] RDW SD 48.0 fl High 35.1-43.9 [facility] Comment on above: Performed By: #### L 100.0100, L503.7505 ####[facility] [address] [place], [address] WBC (Bld) [#/Vol] 9.3 10*3/uL Normal 4.4-11.0 [facility] Comment on above: Performed By: #### L 100.0100, L503.7505 ####[facility] [address] [place], [place], [id number] Eosinophil percentageOrdered By: ELIAZAR Olivas on 09-20-2024 Eosinophils/100 WBC (Bld) 1.5 % 0-5 [facility] Erythrocyte distribution wid th ratioOrdered By: ELIAZAR Maren Cheungneelam on 09-20-2024 Erythrocyte distribution width (RBC) [Ratio] 14.1 % 11.6-14.6 [facility] Erythrocyte distribution wid th standard deviationOrdered By: ELIAZAR Olivas on 09-20-2024 Erythrocyte distribution width (RBC) [Ratio] 48.0 fl High 35.1-43.9 [facility] Hematocrit Auto (Bld) [Volum e fraction]Ordered By: ELIAZAR Olivas on 09-20-2024 Hematocrit (Bld) [Volume fraction] 34.8 % Low 40-54 [facility] Hemoglobin measurementOrdere d By: ELIAZAR Olivas on 09-20-2024 Hemoglobin (Bld) [Mass/Vol] 11.1 g/dL Low 13.0-16.5 [facility] Immature granulocytes/100 WB C Auto (Bld)Ordered By: ELIAZAR Olivas on 09-20-2024 Immature granulocytes/100 WBC (Bld) 0.800 % 0.0-0.9 [facility] Comment on above: IG% - Immature Granu locytes (promyelocytes, myelocytes and metamyelocytes) > 1% indicates that a LEFT SHIFT is Present. L503.7505on 09-20-2024 Natriuretic peptide B (Bld) [Mass/Vol] 84 pg/mL Normal <=1800 [facility] Comment on above: Result Comment: Hear t Failure Unlikely: < 300 pg/mLHeart Failure Likely< 50 Years: > 450 pg/mL50-75 Years: > 900 pg/mL>75 Years: > 1800 pg/mL Performed By: #### L 100.0100, L503.7505 ####[facility] [address] [facility] [address] [place], [place], [id number] MCV (mean corpuscular volume ) determinationOrdered By: ELIAZAR Olivas on 09-20-2024 MCV (RBC) [Entitic vol] 92.1 fL 80-94 [facility] Mean corpuscular hemoglobin (MCH) determinationOrdered By: ELIAZAR Olivas on 09-20-2024 MCH (RBC) [Entitic mass] 29.4 pg 27.0-32.0 [facility] Mean corpuscular hemoglobin concentration (MCHC) determinationOrdered By: ELIAZAR Olivas on 09-20-2024 MCHC (RBC) [Mass/Vol] 31.9 g/dL Low 32-36 [facility] Mean platelet volume determi nationOrdered By: ELIAZAR Olivas on 09-20-2024 Platelet mean volume (Bld) [Entitic vol] 12.6 fL High 6.2-12.0 [facility] Monocyte percentageOrdered B y: ELIAZAR Olivas on 09-20-2024 Monocytes/100 WBC (Bld) 11.1 % High 0-10 [facility] Natriuretic peptide.B prohor efrem N-Terminal [Mass/volume] in Serum or PlasmaOrdered By: ELIAZAR Olivas on 09-20-2024 Natriuretic peptide.B prohormone N-Terminal [Mass/Vol] 84 pg/mL <1800 [facility] Comment on above: Heart Failure Unlike ly: < 300 pg/mLHeart Failure Likely< 50 Years: > 450 pg/mL50-75 Years: > 900 pg/mL>75 Years: > 1800 pg/mL Neutrophil percentageOrdered By: ELIAZAR Olivas on 09-20-2024 Neutrophils/100 WBC (Bld) 70.8 % High 47-70 [facility] Nucleated red blood cell per centageOrdered By: ELIAZAR Olivas on 09-20-2024 Nucleated RBC/100 WBC (Bld) [Ratio] 0 % 0-5 [facility] Platelet countOrdered By: ELIAZAR Olivas on 09-20-2024 Platelets (Bld) [#/Vol] 166 10*3/uL 150-450 [facility] Pulmonary Visit Reporton Pulmonary Visit Report Normal [facility] RBC Auto (Bld) [#/Vol]Ordere d By: ELIAZAR Olivas on 09-20-2024 RBC (Bld) [#/Vol] 3.78 10*6/uL Low 4.6-6.2 [facility] White blood cell (WBC) count Ordered By: ELIAZAR Olivas on 09-20-2024 WBC (Bld) [#/Vol] 9.3 10*3/uL 4.4-11.0 [facility] 6 Minute Walk Teston 025 6 Minute Walk Test Normal [facility] Pulmonary Visit Reporton Pulmonary Visit Report Normal [facility] BUN/creatinine ratioOrdered By: Marycarmen Rodriguez on 06-30-2024 Urea nitrogen/Creatinine [Mass ratio] 17.4 mg/mg 10- [facility] Basic Metabolic Profile (BMP )on 06-30-2024 Anion gap [Moles/Vol] 11 mmol/L Normal 5-15 [facility] Comment on above: Performed By: #### L 500.2500 ####[facility] [address] [facility] [address] BUN/CRE 17.4 RATIO Normal - [facility] Comment on above: Performed By: #### L 500.2500 ####[facility] [address] [facility] [address] Calcium [Mass/Vol] 9.7 mg/dL Normal 7.6-11.0 [facility] Comment on above: Performed By: #### L 500.2500 ####[facility] [address] [place], [address] Chloride [Moles/Vol] 105 mmol/L Normal 96-108 [facility] Comment on above: Performed By: #### L 500.2500 ####[facility] [address] [facility] [address] CO2 [Moles/Vol] 25.3 mmol/L Normal 22.0-29.0 [facility] Comment on above: Performed By: #### L 500.2500 ####[facility] [address] [place], [address] Creatinine [Mass/Vol] 1.80 mg/dL High 0.70-1.20 [facility] Comment on above: Performed By: #### L 500.2500 ####[facility] [address] [place], [address] GFR/1.73 sq M.predicted among non-blacks MDRD (S/P/Bld) [Vol rate/Area] 38 mL/min/{1.73_m2} Low >60 [facility] Comment on above: Result Comment: mL/m in/1.73m2 CKD-EPI Creatinine Equation (2020) Performed By: #### L 500.2500 ####[facility] [address] [place], [address] Glucose [Mass/Vol] 112 mg/dL High 70-99 [facility] Comment on above: Performed By: #### L 500.2500 ####[facility] [address] [place], [address] Potassium [Moles/Vol] 4.8 mmol/L Normal 3.3-5.1 [facility] Comment on above: Performed By: #### L 500.2500 ####[facility] [address] [place], [address] Sodium [Moles/Vol] 141 mmol/L Normal 133-145 [facility] Comment on above: Performed By: #### L 500.2500 ####[facility] [address] [place], [address] Urea nitrogen [Mass/Vol] 31 mg/dL High 4-19 [facility] Comment on above: Performed By: #### L 500.2500 ####[facility] [address] [place], [address] Carbon dioxide measurementOr dered By: Marycarmen Rodriguez on 06-30-2024 CO2 [Moles/Vol] 25.3 mmol/L 22.0-29.0 [facility] Chloride measurementOrdered By: Marycarmen Rodriguez on 06-30-2024 Chloride [Moles/Vol] 105 mmol/L 96-108 [facility] GFR/1.73 sq M.predicted ana lilia g non-blacks MDRD (S/P/Bld) [Vol rate/Area]Ordered By: Marycarmen Rodriguez on 06-30-2024 Estimated GFR (MDRD) Non-Af Amer 38 Low >60 [facility] Comment on above: mL/min/1.73m2 CKD-EP I Creatinine Equation (2020) Glomerular filtration rate ( GFR) estimation/1.73 sq m using serum, plasma, or whole bOrdered By: Marycarmen Rodriguez on 06-30-2024 GFR/1.73 sq M.predicted among non-blacks MDRD (S/P/Bld) [Vol rate/Area] 38 mL/min/{1.73_m2} Low >60 [facility] Comment on above: mL/min/1.73m2 CKD-EP I Creatinine Equation (2020) Serum creatinine measurement (mass/volume)Ordered By: Marycarmen Rodriguez on 06-30-2024 Creatinine [Mass/Vol] 1.80 mg/dL High 0.70-1.20 [facility] Serum glucose measurement (m ass/volume)Ordered By: Marycarmen Rodriguez on 06-30-2024 Glucose [Mass/Vol] 112 mg/dL High 70-99 [facility] Serum or plasma anion gap de termination (moles/volume)Ordered By: Marycarmen Rodriguez on 06-30-2024 Anion gap [Moles/Vol] 11 mmol/L 5-15 [facility] Serum or plasma calcium francine urement (mass/volume)Ordered By: Marycarmen Rodriguez on 06-30-2024 Calcium [Mass/Vol] 9.7 mg/dL 7.6-11.0 [facility] Serum or plasma potassium me asurementOrdered By: Marycarmen Rodriguez on 06-30-2024 Potassium [Moles/Vol] 4.8 mmol/L 3.3-5.1 [facility] Serum or plasma sodium measu rement (moles/volume)Ordered By: Marycarmen Rodriguez on 06-30-2024 Sodium [Moles/Vol] 141 mmol/L 133-145 [facility] Serum or plasma urea nitroge n measurement (mass/volume)Ordered By: Marycarmen Rodriguez on 06-30-2024 Urea nitrogen [Mass/Vol] 31 mg/dL High 4-19 [facility] Absolute neutrophil countOrd ered By: Gustabo Pérez on 04-17-2024 Neutrophils (Bld) [#/Vol] 6.0 10*3/uL 2.0-7.7 [facility] BNP (brain natriuretic pepti de measurement)Ordered By: Gustabo Pérez on 04-17-2024 Natriuretic peptide B (Bld) [Mass/Vol] 37.2 pg/mL 0-100 [facility] BNP,B-Type NATRIURETIC PEPTI Sharon 04-17-2024 Natriuretic peptide B (Bld) [Mass/Vol] 37.2 pg/mL Normal 0-100 [facility] Comment on above: Performed By: #### L 500.2500, L100.0100, L503.6620 ####[facility] [address] [place], [address] Basic Metabolic Profile (BMP )on 04-17-2024 BUN/CRE 11.2 RATIO Normal 10-20 [facility] Comment on above: Performed By: #### L 500.2500, L100.0100, L503.6620 ####[facility] [address] [place], [address] CA,Total 9.0 mg/dL Normal 8.5-10.1 [facility] Comment on above: Performed By: #### L 500.2500, L100.0100, L503.6620 ####[facility] [address] [place], [address] Chloride [Moles/Vol] 107 mmol/L Normal 98-107 [facility] Comment on above: Performed By: #### L 500.2500, L100.0100, L503.6620 ####[facility] [address] [place], [address] CO2 [Moles/Vol] 27.0 mmol/L Normal 21.0-32.0 [facility] Comment on above: Performed By: #### L 500.2500, L100.0100, L503.6620 ####[facility] [address] [place], [address] Creatinine [Mass/Vol] 1.79 mg/dL High 0.70-1.30 [facility] Comment on above: Result Comment: The validity of the calculated GFR GFRAA in patients over70 years has not been determined. Clinical correlation isessential. Performed By: #### L 500.2500, L100.0100, L503.6620 ####[facility] [address] [place], [address] EST GFR - AA 47 mL/min Low >60 [facility] Comment on above: Result Comment: Afri can Japanese GFR Calc Performed By: #### L 500.2500, L100.0100, L503.6620 ####[facility] [address] [place], [address] GAP 4 Low 5-15 [facility] Comment on above: Performed By: #### L 500.2500, L100.0100, L503.6620 ####[facility] [address] [place], [address] GFR/1.73 sq M.predicted among non-blacks MDRD (S/P/Bld) [Vol rate/Area] 39 mL/min/{1.73_m2} Low >60 [facility] Comment on above: Result Comment: Non- GFR Calc Performed By: #### L 500.2500, L100.0100, L503.6620 ####[facility] [address] [place], [address] Glucose [Mass/Vol] 228 mg/dL High 74-106 [facility] Comment on above: Result Comment: Gluc ose result greater than or equal to 200 mg/dLsuggests DIABETES MELLITUS per A.D.A. criteria. Performed By: #### L 500.2500, L100.0100, L503.6620 ####[facility] [address] [place], [address] Potassium [Moles/Vol] 4.8 mmol/L Normal 3.5-5.1 [facility] Comment on above: Performed By: #### L 500.2500, L100.0100, L503.6620 ####[facility] [address] [place], [address] Sodium [Moles/Vol] 138 mmol/L Normal 136-145 [facility] Comment on above: Performed By: #### L 500.2500, L100.0100, L503.6620 ####[facility] [address] [place], [address] Urea nitrogen [Mass/Vol] 20 mg/dL High - [facility] Comment on above: Performed By: #### L 500.2500, L100.0100, L503.6620 ####[facility] [address] [place], [address] Basophil percentageOrdered B y: Gustabo Pérez on 04-17-2024 Basophils/100 WBC (Bld) 0.5 % 0-1 [facility] Blood urea nitrogen (BUN)/cr eatinine ratioOrdered By: Gustabo Pérez on 04-17-2024 Urea nitrogen/Creatinine [Mass ratio] 11.2 mg/mg 10-20 [facility] CBC W/Diff, Automatedon 04-02 Absolute Lymph 1.29 X10 3/uL Normal 0.83-4.51 [facility] Comment on above: Performed By: #### L 500.2500, L100.0100, L503.6620 ####[facility] [address] [place], [address] Absolute Neut 6.0 X10 3/uL Normal 2.0-7.7 [facility] Comment on above: Performed By: #### L 500.2500, L100.0100, L503.6620 ####[facility] [address] [place], [address] Basophils/100 WBC (Bld) 0.5 % Normal 0-1 [facility] Comment on above: Performed By: #### L 500.2500, L100.0100, L503.6620 ####[facility] [address] [place], [address] Eosinophils/100 WBC (Bld) 1.2 % Normal 0-5 [facility] Comment on above: Performed By: #### L 500.2500, L100.0100, L503.6620 ####[facility] [address] [place], [address] Erythrocyte distribution width (RBC) [Ratio] 13.9 % Normal 11.6-14.6 [facility] Comment on above: Performed By: #### L 500.2500, L100.0100, L503.6620 ####[facility] [address] [place], [address] Hematocrit (Bld) [Volume fraction] 41.0 % Normal 40-54 [facility] Comment on above: Performed By: #### L 500.2500, L100.0100, L503.6620 ####[facility] [address] [place], [address] Hemoglobin (Bld) [Mass/Vol] 13.2 g/dL Normal 13.0-16.5 [facility] Comment on above: Performed By: #### L 500.2500, L100.0100, L503.6620 ####[facility] [address] [place], [address] IG% 0.600 Normal 0.0-0.9 [facility] Comment on above: Result Comment: IG% - Immature Granulocytes (promyelocytes, myelocytes andmetamyelocytes) > 1% indicates that a LEFT SHIFT is Present. Performed By: #### L 500.2500, L100.0100, L503.6620 ####[facility] [address] [place], [address] Lymphocytes/100 WBC (Bld) 15.7 % Low 19-41 [facility] Comment on above: Performed By: #### L 500.2500, L100.0100, L503.6620 ####[facility] [address] [place], [address] MCH (RBC) [Entitic mass] 29.2 pg Normal 27.0-32.0 [facility] Comment on above: Performed By: #### L 500.2500, L100.0100, L503.6620 ####[facility] [address] [place], [address] MCHC (RBC) [Mass/Vol] 32.2 g/dL Normal 32-36 [facility] Comment on above: Performed By: #### L 500.2500, L100.0100, L503.6620 ####[facility] [address] [place], [address] MCV (RBC) [Entitic vol] 90.7 fL Normal 80-94 [facility] Comment on above: Performed By: #### L 500.2500, L100.0100, L503.6620 ####[facility] [address] [place], [address] Monocytes/100 WBC (Bld) 8.5 % Normal 0-10 [facility] Comment on above: Performed By: #### L 500.2500, L100.0100, L503.6620 ####[facility] [address] [place], [address] Neutrophils/100 WBC (Bld) 73.5 % High 47-70 [facility] Comment on above: Performed By: #### L 500.2500, L100.0100, L503.6620 ####[facility] [address] [place], [address] Nucleated RBC (Bld) [#/Vol] 0 10*3/uL Normal 0-5 [facility] Comment on above: Performed By: #### L 500.2500, L100.0100, L503.6620 ####[facility] [address] [place], [address] Platelet mean volume (Bld) [Entitic vol] 12.3 fL High 6.2-12.0 [facility] Comment on above: Performed By: #### L 500.2500, L100.0100, L503.6620 ####[facility] [address] [place], [address] Platelets (Bld) [#/Vol] 185 10*3/uL Normal 150-450 [facility] Comment on above: Performed By: #### L 500.2500, L100.0100, L503.6620 ####[facility] [address] [place], [address] RBC (Bld) [#/Vol] 4.52 10*6/uL Low 4.6-6.2 [facility] Comment on above: Performed By: #### L 500.2500, L100.0100, L503.6620 ####[facility] [address] [place], [address] RDW SD 46.4 fl High 35.1-43.9 [facility] Comment on above: Performed By: #### L 500.2500, L100.0100, L503.6620 ####[facility] [address] [place], [address] WBC (Bld) [#/Vol] 8.2 10*3/uL Normal 4.4-11.0 [facility] Comment on above: Performed By: #### L 500.2500, L100.0100, L503.6620 ####[facility] [address] [place], [address] Carbon dioxide measurementOr dered By: Gustabo Pérez on 04-17-2024 CO2 [Moles/Vol] 27.0 mmol/L 21.0-32.0 [facility] Cardiology Visit Reporton Cardiology Visit Report Normal [facility] Chloride measurementOrdered By: Gustabo Pérez on 04-17-2024 Chloride [Moles/Vol] 107 mmol/L 98-107 [facility] Eosinophil percentageOrdered By: Gustabo Pérez on 04-17-2024 Eosinophils/100 WBC (Bld) 1.2 % 0-5 [facility] Erythrocyte distribution wid th ratioOrdered By: Gustabo Pérez on 04-17-2024 Erythrocyte distribution width (RBC) [Ratio] 13.9 % 11.6-14.6 [facility] Erythrocyte distribution wid th standard deviationOrdered By: Gustabo Pérez on 04-17-2024 Erythrocyte distribution width (RBC) [Entitic vol] 46.4 fL High 35.1-43.9 [facility] Estimated glomerular filtrat ion rate (GFR) AmericanOrdered By: Gustabo Pérez on 04-17-2024 Estimated GFR (MDRD) Amer 47 mL/min Low >60 [facility] Comment on above: GFR Calc Glomerular filtration rate ( GFR) estimationOrdered By: Gustabo Pérez on 04-17-2024 Estimated GFR (MDRD) Non-Af Amer 39 mL/min Low >60 [facility] Comment on above: Non- GFR Calc Glucose measurementOrdered B y: Gustabo Pérez on 04-17-2024 Glucose [Mass/Vol] 228 mg/dL High 74-106 [facility] Comment on above: Glucose result great er than or equal to 200 mg/dLsuggests DIABETES MELLITUS per A.D.A. criteria. Hematocrit Auto (Bld) [Volum e fraction]Ordered By: Gustabo Pérez on 04-17-2024 Hematocrit (Bld) [Volume fraction] 41.0 % 40-54 [facility] Hemoglobin measurementOrdere d By: Gustabo Pérez on 04-17-2024 Hemoglobin (Bld) [Mass/Vol] 13.2 g/dL 13.0-16.5 [facility] Immature granulocytes/100 WB C Auto (Bld)Ordered By: Gustabo Pérez on 04-17-2024 Immature granulocytes/100 WBC (Bld) 0.600 % 0.0-0.9 [facility] Comment on above: IG% - Immature Granu locytes (promyelocytes, myelocytes and metamyelocytes) > 1% indicates that a LEFT SHIFT is Present. Lymphocytes Auto (Unsp spec) [#/Vol]Ordered By: Gustabo Pérez on 04-17-2024 Lymphocytes (Bld) [#/Vol] 1.29 10*3/uL 0.83-4.51 [facility] Lymphocytes/100 WBC Auto (Un sp spec)Ordered By: Gustabo Pérez on 04-17-2024 Lymphocytes/100 WBC (Bld) 15.7 % Low 19-41 [facility] MCV (mean corpuscular volume ) determinationOrdered By: Gustabo Pérez on 04-17-2024 MCV (RBC) [Entitic vol] 90.7 fL 80-94 [facility] Mean corpuscular hemoglobin (MCH) determinationOrdered By: Gustabo Pérez on 04-17-2024 MCH (RBC) [Entitic mass] 29.2 pg 27.0-32.0 [facility] Mean corpuscular hemoglobin concentration (MCHC) determinationOrdered By: Gustabo Pérez on 04-17-2024 MCHC (RBC) [Mass/Vol] 32.2 g/dL 32-36 [facility] Mean platelet volume determi nationOrdered By: Gustabo Pérez on 04-17-2024 Platelet mean volume (Bld) [Entitic vol] 12.3 fL High 6.2-12.0 [facility] Monocyte percentageOrdered B y: Gustabo Pérez on 04-17-2024 Monocytes/100 WBC (Bld) 8.5 % 0-10 [facility] Neutrophil percentageOrdered By: Gustabo Pérez on 04-17-2024 Neutrophils/100 WBC (Bld) 73.5 % High 47-70 [facility] Nucleated red blood cell per centageOrdered By: Gustabo Pérez on 04-17-2024 Nucleated RBC/100 WBC (Bld) [Ratio] 0 % 0-5 [facility] Platelet countOrdered By: Lydia Pérez on 04-17-2024 Platelets (Bld) [#/Vol] 185 10*3/uL 150-450 [facility] Potassium measurementOrdered By: Gustabo Pérez on 04-17-2024 Potassium [Moles/Vol] 4.8 mmol/L 3.5-5.1 [facility] RBC Auto (Bld) [#/Vol]Ordere d By: Gustabo Pérez on 04-17-2024 RBC (Bld) [#/Vol] 4.52 10*6/uL Low 4.6-6.2 [facility] Serum anion gap measurementO rdered By: Gustabo Pérez on 04-17-2024 Anion gap [Moles/Vol] 4 mmol/L Low 5-15 [facility] Serum or plasma calcium francine urement (mass/volume)Ordered By: Gustabo Pérez on 04-17-2024 Calcium [Mass/Vol] 9.0 mg/dL 8.5-10.1 [facility] Serum or plasma creatinine m easurement [...] Urea nitrogen [Mass/Vol] 20 mg/dL High 7-18 [facility] Sodium levelOrdered By: Gustabo Pérez on 04-17-2024 Sodium [Moles/Vol] 138 mmol/L 136-145 [facility] White blood cell (WBC) count Ordered By: Gustabo Pérez on 04-17-2024 WBC (Bld) [#/Vol] 8.2 10*3/uL 4.4-11.0 [facility] Office Visit Reporton 2023 Office Visit Report Normal [facility] Albumin to globulin ratioOrd ered By: Jose Hay on 03-23-2024 Albumin/Globulin [Mass ratio] 1.1 {ratio} 0.9-2.4 [facility] Bilirubin, totalOrdered By: Jose Hay on 03-23-2024 Bilirubin [Mass/Vol] 2.00 mg/dL High 0.20-1.00 [facility] Comment on above: For patients on eltr ombopag therapy, use of Dimension [place] TBIL is not recommended. Blood urea nitrogen (BUN)/cr eatinine ratioOrdered By: Jose Hay on 03-23-2024 Urea nitrogen/Creatinine [Mass ratio] 18.0 mg/mg 10-20 [facility] Carbon dioxide measurementOr dered By: Jose Hay on 03-23-2024 CO2 [Moles/Vol] 28.0 mmol/L 21.0-32.0 [facility] Chloride measurementOrdered By: Jose Hay on 03-23-2024 Chloride [Moles/Vol] 104 mmol/L 98-107 [facility] Comprehensive Metabolic Prof ilon 03-23-2024 Albumin [Mass/Vol] 3.7 g/dL Normal 3.2-5.0 [facility] Comment on above: Order Comment: DR REMY ORDERED BMP AND MAGNESIUM.DR HAY ORDERED LIPID CMP TSH. RANGLE Performed By: #### L 501.9520, L501.5200, L500.4050, L500.4100 ####[facility] [address] [place], [address] Albumin/Globulin [Mass ratio] 1.1 {ratio} Normal 0.9-2.4 [facility] Comment on above: Order Comment: DR REMY ORDERED BMP AND MAGNESIUM.DR HAY ORDERED LIPID CMP TSH. RANGLE Performed By: #### L 501.9520, L501.5200, L500.4050, L500.4100 ####[facility] [address] [place], [address] ALK P 92 U/L Normal 45-117 [facility] Comment on above: Order Comment: DR REMY ORDERED BMP AND MAGNESIUM.DR HAY ORDERED LIPID CMP TSH. RANGLE Performed By: #### L 501.9520, L501.5200, L500.4050, L500.4100 ####[facility] [address] [place], [address] ALT [Catalytic activity/Vol] 52 U/L Normal 16-61 [facility] Comment on above: Order Comment: DR REMY ORDERED BMP AND MAGNESIUM.DR HAY ORDERED LIPID CMP TSH. RANGLE Performed By: #### L 501.9520, L501.5200, L500.4050, L500.4100 ####[facility] [address] [place], [address] AST [Catalytic activity/Vol] 28 U/L Normal 15-37 [facility] Comment on above: Order Comment: DR REMY ORDERED BMP AND MAGNESIUM.DR HAY ORDERED LIPID CMP TSH. RANGLE Performed By: #### L 501.9520, L501.5200, L500.4050, L500.4100 ####[facility] [address] [place], [address] Bilirubin [Mass/Vol] 2.00 mg/dL High 0.20-1.00 [facility] Comment on above: Order Comment: DR REMY ORDERED BMP AND MAGNESIUM.DR HAY ORDERED LIPID CMP TSH. RANGLE Result Comment: For patients on eltrombopag therapy, use of Dimension [place] TBIL is not recommended. Performed By: #### L 501.9520, L501.5200, L500.4050, L500.4100 ####[facility] [address] [place], [address] BUN/CRE 18.0 RATIO Normal 10-20 [facility] Comment on above: Order Comment: DR REMY ORDERED BMP AND MAGNESIUM.DR HAY ORDERED LIPID CMP TSH. RANGLE Performed By: #### L 501.9520, L501.5200, L500.4050, L500.4100 ####[facility] [address] [place], [address] CA,Total 8.8 mg/dL Normal 8.5-10.1 [facility] Comment on above: Order Comment: DR REMY ORDERED BMP AND MAGNESIUM.DR HAY ORDERED LIPID CMP TSH. RANGLE Performed By: #### L 501.9520, L501.5200, L500.4050, L500.4100 ####[facility] [address] [place], [address] Chloride [Moles/Vol] 104 mmol/L Normal 98-107 [facility] Comment on above: Order Comment: DR REMY ORDERED BMP AND MAGNESIUM.DR HAY ORDERED LIPID CMP TSH. RANGLE Performed By: #### L 501.9520, L501.5200, L500.4050, L500.4100 ####[facility] [address] [place], [address] CO2 [Moles/Vol] 28.0 mmol/L Normal 21.0-32.0 [facility] Comment on above: Order Comment: DR REMY ORDERED BMP AND MAGNESIUM.DR HAY ORDERED LIPID CMP TSH. RANGLE Performed By: #### L 501.9520, L501.5200, L500.4050, L500.4100 ####[facility] [address] [place], [address] Creatinine [Mass/Vol] 1.67 mg/dL High 0.70-1.30 [facility] Comment on above: Order Comment: DR REMY ORDERED BMP AND MAGNESIUM.DR HAY ORDERED LIPID CMP TSH. RANGLE Result Comment: The validity of the calculated GFR GFRAA in patients over70 years has not been determined. Clinical correlation isessential. Performed By: #### L 501.9520, L501.5200, L500.4050, L500.4100 ####[facility] [address] [place], [address] EST GFR - AA 51 mL/min Low >60 [facility] Comment on above: Order Comment: DR REMY ORDERED BMP AND MAGNESIUM.DR HAY ORDERED LIPID CMP TSH. RANGLE Result Comment: Afri can Japanese GFR Calc Performed By: #### L 501.9520, L501.5200, L500.4050, L500.4100 ####[facility] [address] [place], [address] GAP 6 Normal 5-15 [facility] Comment on above: Order Comment: DR REMY ORDERED BMP AND MAGNESIUM.DR HAY ORDERED LIPID CMP TSH. RANGLE Performed By: #### L 501.9520, L501.5200, L500.4050, L500.4100 ####[facility] [address] [place], [address] GFR/1.73 sq M.predicted among non-blacks MDRD (S/P/Bld) [Vol rate/Area] 42 mL/min/{1.73_m2} Low >60 [facility] Comment on above: Order Comment: DR REMY ORDERED BMP AND MAGNESIUM.DR HAY ORDERED LIPID CMP TSH. RANGLE Result Comment: Non- GFR Calc Performed By: #### L 501.9520, L501.5200, L500.4050, L500.4100 ####[facility] [address] [place], [address] Globulin (S) [Mass/Vol] 3.3 g/dL Normal 2.2-4.2 [facility] Comment on above: Order Comment: DR REMY ORDERED BMP AND MAGNESIUM.DR HAY ORDERED LIPID CMP TSH. RANGLE Performed By: #### L 501.9520, L501.5200, L500.4050, L500.4100 ####[facility] [address] [place], [address] Glucose [Mass/Vol] 146 mg/dL High 74-106 [facility] Comment on above: Order Comment: DR REMY ORDERED BMP AND MAGNESIUM.DR HAY ORDERED LIPID CMP TSH. RANGLE Result Comment: Fast ing Glucose result greater than or equal to 126 mg/dLsuggests DIABETES MELLITUS per A.D.A. criteria. Performed By: #### L 501.9520, L501.5200, L500.4050, L500.4100 ####[facility] [address] [place], [address] Potassium [Moles/Vol] 4.4 mmol/L Normal 3.5-5.1 [facility] Comment on above: Order Comment: DR REMY ORDERED BMP AND MAGNESIUM.DR HAY ORDERED LIPID CMP TSH. RANGLE Performed By: #### L 501.9520, L501.5200, L500.4050, L500.4100 ####[facility] [address] [place], [address] Sodium [Moles/Vol] 138 mmol/L Normal 136-145 [facility] Comment on above: Order Comment: DR REMY ORDERED BMP AND MAGNESIUM.DR HAY ORDERED LIPID CMP TSH. RANGLE Performed By: #### L 501.9520, L501.5200, L500.4050, L500.4100 ####[facility] [address] [place], [address] T PROT 7.0 g/dL Normal 6.4-8.2 [facility] Comment on above: Order Comment: DR REMY ORDERED BMP AND MAGNESIUM.DR HAY ORDERED LIPID CMP TSH. RANGLE Performed By: #### L 501.9520, L501.5200, L500.4050, L500.4100 ####[facility] [address] [place], [address] Urea nitrogen [Mass/Vol] 30 mg/dL High 7-18 [facility] Comment on above: Order Comment: DR REMY ORDERED BMP AND MAGNESIUM.DR HAY ORDERED LIPID CMP TSH. RANGLE Performed By: #### L 501.9520, L501.5200, L500.4050, L500.4100 ####[facility] [address] [place], [address] Estimated glomerular filtrat ion rate (GFR) AmericanOrdered By: Jose Hay on 03-23-2024 Estimated GFR (MDRD) Amer 51 mL/min Low >60 [facility] Comment on above: GFR Calc Glomerular filtration rate ( GFR) estimationOrdered By: Jose Hay on 03-23-2024 Estimated GFR (MDRD) Non-Af Amer 42 mL/min Low >60 [facility] Comment on above: Non- GFR Calc Glucose measurementOrdered B y: Jose Hay on 03-23-2024 Glucose [Mass/Vol] 146 mg/dL High 74-106 [facility] Comment on above: Fasting Glucose resu lt greater than or equal to 126 mg/dL suggests DIABETES MELLITUS per A.D.A. criteria. High density lipoprotein (HD L) measurementOrdered By: Jose Hay on 03-23-2024 Cholesterol in HDL [Mass/Vol] 52 mg/dL >40 [facility] Comment on above: The drugs N-Acetylcy steine and Metamizole may falsely depress this assay. Reference Range HDL <40 mg/dL Low HDL Cholesterol HDL >or= 60 mg/dL High HDL Cholesterol Laboratory - Chemistry and C hemistry - challengeOrdered By: Jose Hay on 03-23-2024 AST [Catalytic activity/Vol] 28 U/L 15-37 [facility] Lipid Profileon 03-23-2024 Cholesterol [Mass/Vol] 158 mg/dL Normal 200 [facility] Comment on above: Order Comment: DR REMY ORDERED BMP AND MAGNESIUM.DR HAY ORDERED LIPID CMP TSH. RANGLE Result Comment: <200 mg/dL Desirable 200-240 mg/dL Borderline >240 mg/dL High Risk Performed By: #### L 501.9520, L501.5200, L500.4050, L500.4100 ####[facility] [address] [place], [place], [id number] Cholesterol in HDL [Mass/Vol] 52 mg/dL Normal [facility] Comment on above: Order Comment: DR REMY ORDERED BMP AND MAGNESIUM.DR HAY ORDERED LIPID CMP TSH. RANGLE Result Comment: The drugs N-Acetylcysteine and Metamizole may falselydepress this assay. Reference Range HDL <40 mg/dL Low HDL Cholesterol HDL >or= 60 mg/dL High HDL Cholesterol Performed By: #### L 501.9520, L501.5200, L500.4050, L500.4100 ####[facility] [address] [place], [address] Cholesterol in LDL [Mass/Vol] 61 mg/dL Normal 0-130 [facility] Comment on above: Order Comment: DR REMY ORDERED BMP AND MAGNESIUM.DR HAY ORDERED LIPID CMP TSH. RANGLE Performed By: #### L 501.9520, L501.5200, L500.4050, L500.4100 ####[facility] [address] [place], [address] Cholesterol in VLDL [Mass/Vol] 45 mg/dL High 5-40 [facility] Comment on above: Order Comment: DR REMY ORDERED BMP AND MAGNESIUM.DR HAY ORDERED LIPID CMP TSH. RANGLE Performed By: #### L 501.9520, L501.5200, L500.4050, L500.4100 ####[facility] [address] [place], [address] Triglyceride [Mass/Vol] 225 mg/dL High [facility] Comment on above: Order Comment: DR REMY ORDERED BMP AND MAGNESIUM.DR HAY ORDERED LIPID CMP TSH. RANGLE Result Comment: The drugs N-Acetylcysteine and Metamizole may falselydepress this assay.Serum Triglycerides Reference Interval Normal <150 mg/dL Borderline high 150 - 199 mg/dL High 200 - 499 mg/dL Very High > or = 500 mg/dL Performed By: #### L 501.9520, L501.5200, L500.4050, L500.4100 ####[facility] [address] [place], [address] Low density lipoprotein (LDL ) cholesterol measurementOrdered By: Jose Hay on 03-23-2024 Cholesterol in LDL [Mass/Vol] 61 mg/dL 0-130 [facility] Magnesiumon 11-21-2024 Magnesium [Mass/Vol] 2.1 mg/dL Normal 1.6-2.6 [facility] Comment on above: Order Comment: DR REMY ORDERED BMP AND MAGNESIUM.DR HAY ORDERED LIPID CMP TSH. RANGLE Performed By: #### L 501.9520, L501.5200, L500.4050, L500.4100 ####[facility] [address] [place], [place], [address] Magnesium measurementOrdered By: Jose Hay on 03-23-2024 Magnesium [Mass/Vol] 2.1 mg/dL 1.6-2.6 [facility] Potassium measurementOrdered By: Jose Hay on 03-23-2024 Potassium [Moles/Vol] 4.4 mmol/L 3.5-5.1 [facility] Serum anion gap measurementO rdered By: Jose Hay on 03-23-2024 Anion gap [Moles/Vol] 6 mmol/L 5-15 [facility] Serum globulin measurementOr dered By: Jose Hay on 03-23-2024 Globulin (S) [Mass/Vol] 3.3 g/dL 2.2-4.2 [facility] Serum or plasma alanine guerrero otransferase (ALT) measurementOrdered By: Jose Hay on 03-23-2024 ALT [Catalytic activity/Vol] 52 U/L 16-61 [facility] Serum or plasma albumin francine urement (mass/volume)Ordered By: Jose Hay on 03-23-2024 Albumin [Mass/Vol] 3.7 g/dL 3.2-5.0 [facility] Serum or plasma alkaline bell sphatase measurementOrdered By: Jose Hay on 03-23-2024 ALP [Catalytic activity/Vol] 92 U/L 45-117 [facility] Serum or plasma calcium francine urement (mass/volume)Ordered By: Jose Hay on 03-23-2024 Calcium [Mass/Vol] 8.8 mg/dL 8.5-10.1 [facility] Serum or plasma cholesterol measurement (mass/volume)Ordered By: Jose Hay on 03-23-2024 Cholesterol [Mass/Vol] 158 mg/dL <200 [facility] Comment on above: <200 mg/dL Desirable 200-240 [...] Urea nitrogen [Mass/Vol] 30 mg/dL High 7-18 [facility] Sodium levelOrdered By: Ernst Hay on 03-23-2024 Sodium [Moles/Vol] 138 mmol/L 136-145 [facility] TSH QnOrdered By: Jose rodriguez on 03-23-2024 Thyroid Stimulating Hormone (TSH) 5.340 uIU/mL High 0.358-3.74 0 [facility] Thyroid Stim Hormone (TSH)on 03-23-2024 TSH 5.340 uIU/mL High 0.358-3.74 0 [facility] Comment on above: Order Comment: DR REMY ORDERED BMP AND MAGNESIUM.DR HAY ORDERED LIPID CMP TSH. RANGLE Performed By: #### L [id number], L501.5200, L500.4050, L500.4100 ####[facility] [id number] [place], [address] Total proteinOrdered By: Emmanuel Hay on 03-23-2024 Protein [Mass/Vol] 7.0 g/dL 6.4-8.2 [facility] Triglycerides measurementOrd ered By: Jose Hay on 03-23-2024 Triglyceride [Mass/Vol] 225 mg/dL High <199 [facility] Comment on above: The drugs N-Acetylcy steine and Metamizole may falsely depress this assay.Serum Triglycerides Reference Interval Normal <150 mg/dL Borderline high 150 - 199 mg/dL High 200 - 499 mg/dL Very High > or = 500 mg/dL Very low density lipoprotein (VLDL) cholesterol measurementOrdered By: Jose Hay on 03-23-2024 VLDL Cholesterol 45 mg/dL High 5-40 [facility] Cardiology Visit Reporton Cardiology Visit Report Normal [facility] Basophil percentageOrdered B y: Marycarmen Rodriguez on 05-07-2023 Chloride [Moles/Vol] 103 mmol/L 98-107 [facility] Glucose [Mass/Vol] 172 mg/dL 74-106 [facility] Comment on above: Fasting Glucose resu lt greater than or equal to 126 mg/dL suggests DIABETES MELLITUS per A.D.A. criteria. Potassium [Moles/Vol] 3.7 mmol/L 3.5-5.1 [facility] Sodium [Moles/Vol] 138 mmol/L 136-145 [facility] Laboratory - Chemistry and C hemistry - challengeOrdered By: Marycarmen Rodriguez on 05-07-2023 CO2 [Moles/Vol] 27.0 mmol/L 21.0-32.0 [facility] Urea nitrogen/Creatinine [Mass ratio] 13.9 mg/mg 10-20 [facility] No Panel InformationOrdered By: Marycarmen Rodriguez on 05-07-2023 Estimated GFR (MDRD) Amer 74 mL/min >60 [facility] Comment on above: GFR Calc Estimated GFR (MDRD) Non-Af Amer 61 mL/min >60 [facility] Comment on above: Non- GFR Calc Serum or plasma calcium francine urement (mass/volume)Ordered By: Marycarmen Rodriguez on 05-07-2023 Calcium [Mass/Vol] 8.6 mg/dL 8.5-10.1 [facility] Serum or plasma creatinine m easurement [...] 05-07-2023 Urea nitrogen [Mass/Vol] 17 mg/dL 7-18 [facility] Thin prep Papanicolaou smear with manual screeningOrdered By: Marycarmen Rodriguez on 05-07-2023 Thin prep Papanicolaou smear with manual screening 8 5-15 [facility] Basophil percentageOrdered B y: Jose Hay on 12-15-2022 Chloride [Moles/Vol] 110 mmol/L 98-107 [facility] Glucose [Mass/Vol] 121 mg/dL 74-106 [facility] Comment on above: Fasting Glucose resu lt from 100 to 125 mg/dL suggests IMPAIRED HOMEOSTASIS per A.D.A. criteria. Potassium [Moles/Vol] 4.0 mmol/L 3.5-5.1 [facility] Sodium [Moles/Vol] 139 mmol/L 136-145 [facility] WBC (Bld) [#/Vol] 7.3 10*3/uL 4.4-11.0 [facility] Blood erythrocytes count (nu mber/volume)Ordered By: Jose Hay on 12-15-2022 RBC (Bld) [#/Vol] 5.18 10*6/uL 4.6-6.2 [facility] Blood hemoglobin measurement (mass/volume)Ordered By: Jose Hay on 12-15-2022 Hemoglobin (Bld) [Mass/Vol] 15.2 g/dL 13.0-16.5 [facility] Blood platelet mean volumeOr dered By: Jose Hay on 12-15-2022 Platelet mean volume (Bld) [Entitic vol] 12.2 fL 6.2-12.0 [facility] Determination of erythrocyte mean corpuscular volume (MCV)Ordered By: Jose Hay on 12-15-2022 MCV (RBC) [Entitic vol] 90.2 fL 80-94 [facility] Hematocrit Auto (Bld) [Volum e fraction]Ordered By: Jose Hay on 12-15-2022 Hematocrit (Bld) [Volume fraction] 46.7 % 40-54 [facility] Laboratory - Chemistry and C hemistry - challengeOrdered By: Jose Hay on 12-15-2022 CO2 [Moles/Vol] 23.0 mmol/L 21.0-32.0 [facility] Natriuretic peptide B (Bld) [Mass/Vol] 38.1 pg/mL 0-100 [facility] Urea nitrogen/Creatinine [Mass ratio] 13.5 mg/mg 10-20 [facility] Laboratory - Hematology and Cell countsOrdered By: Jose Hay on 12-15-2022 Erythrocyte distribution width (RBC) [Entitic vol] 47.5 fL 35.1-43.9 [facility] Erythrocyte distribution width (RBC) [Ratio] 14.4 % 11.6-14.6 [facility] MCH (RBC) [Entitic mass] 29.3 pg 27.0-32.0 [facility] MCHC Auto (RBC) [Mass/Vol]Or dered By: Jose Hay on 12-15-2022 MCHC (RBC) [Mass/Vol] 32.5 g/dL 32-36 [facility] No Panel InformationOrdered By: Jose Hay on 12-15-2022 Estimated GFR (MDRD) Amer 83 mL/min >60 [facility] Comment on above: GFR Calc Estimated GFR (MDRD) Non-Af Amer 68 mL/min >60 [facility] Comment on above: Non- GFR Calc Platelets bldOrdered By: Emmanuel Hay on 12-15-2022 Platelets (Bld) [#/Vol] 143 10*3/uL 150-450 [facility] Serum or plasma calcium francine urement (mass/volume)Ordered By: Jose Hay on 12-15-2022 Calcium [Mass/Vol] 8.8 mg/dL 8.5-10.1 [facility] Serum or plasma creatinine m easurement [...] 12-15-2022 Urea nitrogen [Mass/Vol] 15 mg/dL 7-18 [facility] Thin prep Papanicolaou smear with manual screeningOrdered By: Jose Hay on 12-15-2022 Thin prep Papanicolaou smear with manual screening 6 5-15 [facility] Absolute lymphocyte countOrd ered By: Luz Elena Mckeon on 10-13-2022 Lymphocytes Auto (Unsp spec) [#/Vol] 1.21 10*3/uL 0.83-4.51 [facility] Basophil percentageOrdered B y: Luz Elena Mckeon on 10-13-2022 Basophils/100 WBC (Bld) 0.5 % 0-1 [facility] Chloride [Moles/Vol] 106 mmol/L 98-107 [facility] Eosinophils/100 WBC (Bld) 1.4 % 0-5 [facility] Glucose [Mass/Vol] 277 mg/dL 74-106 [facility] Comment on above: Glucose result great er than or equal to 200 mg/dLsuggests DIABETES MELLITUS per A.D.A. criteria. Neutrophils (Bld) [#/Vol] 4.0 10*3/uL 2.0-7.7 [facility] Neutrophils/100 WBC (Bld) 68.5 % 47-70 [facility] Potassium [Moles/Vol] 4.1 mmol/L 3.5-5.1 [facility] Sodium [Moles/Vol] 139 mmol/L 136-145 [facility] WBC (Bld) [#/Vol] 5.8 10*3/uL 4.4-11.0 [facility] Blood erythrocytes count (nu mber/volume)Ordered By: Luz Elena Mckeon on 10-13-2022 RBC (Bld) [#/Vol] 4.66 10*6/uL 4.6-6.2 [facility] Blood hemoglobin measurement (mass/volume)Ordered By: Luz Elena Mckeon on 10-13-2022 Hemoglobin (Bld) [Mass/Vol] 13.6 g/dL 13.0-16.5 [facility] Blood lymphocytes/100 leukoc ytesOrdered By: Luz Elena Mckeon on 10-13-2022 Lymphocytes/100 WBC (Bld) 20.7 % 19-41 [facility] Blood monocytes/100 leukocyt esOrdered By: Luz Elena Mckeon on 10-13-2022 Monocytes/100 WBC (Bld) 8.6 % 0-10 [facility] Blood platelet mean volumeOr dered By: Luz Elena Mckeon on 10-13-2022 Platelet mean volume (Bld) [Entitic vol] 12.6 fL 6.2-12.0 [facility] Determination of erythrocyte mean corpuscular volume (MCV)Ordered By: Luz Elena Mckeon on 10-13-2022 MCV (RBC) [Entitic vol] 89.5 fL 80-94 [facility] Hematocrit Auto (Bld) [Volum e fraction]Ordered By: Luz Elena Mckeon on 10-13-2022 Hematocrit (Bld) [Volume fraction] 41.7 % 40-54 [facility] Laboratory - Chemistry and C hemistry - challengeOrdered By: Luz Elena Mckeon on 10-13-2022 CO2 [Moles/Vol] 27.0 mmol/L 21.0-32.0 [facility] Free T4 [Mass/Vol] 0.77 ng/dL 0.76-1.46 [facility] Magnesium [Mass/Vol] 2.1 mg/dL 1.6-2.6 [facility] Natriuretic peptide B (Bld) [Mass/Vol] 47.2 pg/mL 0-100 [facility] Urea nitrogen/Creatinine [Mass ratio] 17.2 mg/mg 10-20 [facility] Laboratory - Hematology and Cell countsOrdered By: Luz Elena Mckeon on 10-13-2022 Erythrocyte distribution width (RBC) [Entitic vol] 46.1 fL 35.1-43.9 [facility] Erythrocyte distribution width (RBC) [Ratio] 14.1 % 11.6-14.6 [facility] Immature granulocytes/100 WBC (Bld) 0.300 % 0.0-0.9 [facility] Comment on above: IG% - Immature Granu locytes (promyelocytes, myelocytes and metamyelocytes) > 1% indicates that a LEFT SHIFT is Present. MCH (RBC) [Entitic mass] 29.2 pg 27.0-32.0 [facility] Nucleated RBC/100 WBC (Bld) [Ratio] 0 % 0-5 [facility] MCHC Auto (RBC) [Mass/Vol]Or dered By: Luz Elena Mckeon on 10-13-2022 MCHC (RBC) [Mass/Vol] 32.6 g/dL 32-36 [facility] No Panel InformationOrdered By: Luz Elena Mckeon on 10-13-2022 Estimated GFR (MDRD) Amer 61 mL/min >60 [facility] Comment on above: GFR Calc Estimated GFR (MDRD) Non-Af Amer 50 mL/min >60 [facility] Comment on above: Non- GFR Calc Free Triiodothyronine (T3) pg/dL 2.7 pg/mL 2.18-3.98 [facility] Thyroid Stimulating Hormone (TSH) 4.12 uIU/mL 0.358-3.74 [facility] Platelets bldOrdered By: Loco Mckeon on 10-13-2022 Platelets (Bld) [#/Vol] 126 10*3/uL 150-450 [facility] Serum or plasma calcium francine urement (mass/volume)Ordered By: Luz Elena Mckeon on 10-13-2022 Calcium [Mass/Vol] 8.5 mg/dL 8.5-10.1 [facility] Serum or plasma creatinine m easurement [...] 10-13-2022 Urea nitrogen [Mass/Vol] 25 mg/dL 7-18 [facility] Thin prep Papanicolaou smear with manual screeningOrdered By: Luz Elena Mckeon on 10-13-2022 Thin prep Papanicolaou smear with manual screening 6 5-15 [facility] COVID-19 virus antigen assay Ordered By: Shaan Santos on 09-21-2022 SARS-CoV-2 (COVID-19) Ag IA.rapid Ql (Resp) [facility] COVID-19 virus antigen assay Ordered By: Dr. Santos on 09-21-2022 SARS-CoV-2 (COVID-19) Ag IA.rapid Ql (Resp) [facility] Glucose Glucometer (BldC) [M ass/Vol]Ordered By: Dr. Santos on 09-21-2022 Glucose [Mass/Vol] 193 mg/dL 74-106 [facility] Comment on above: MANAGEMENT OF PATIEN T CARE PER NURSING PROTOCOL Absolute lymphocyte countOrd ered By: Dr. Leo on 09-18-2022 Lymphocytes Auto (Unsp spec) [#/Vol] 1.83 10*3/uL 0.83-4.51 [facility] Basophil percentageOrdered B y: Dr. Leo on 09-18-2022 Basophils/100 WBC (Bld) 0.3 % 0-1 [facility] Bilirubin [Mass/Vol] 1.20 mg/dL 0.20-1.00 [facility] Comment on above: For patients on eltr ombopag therapy, use of Dimension [place] TBIL is not recommended. Chloride [Moles/Vol] 108 mmol/L 98-107 [facility] Cholesterol [Mass/Vol] 114 mg/dL <200 [facility] Comment on above: <200 mg/dL Desirable 200-240 mg/dL Borderline >240 mg/dL High Risk Eosinophils/100 WBC (Bld) 2.0 % 0-5 [facility] Glucose [Mass/Vol] 87 mg/dL 74-106 [facility] Neutrophils (Bld) [#/Vol] 4.3 10*3/uL 2.0-7.7 [facility] Neutrophils/100 WBC (Bld) 60.9 % 47-70 [facility] Potassium [Moles/Vol] 3.5 mmol/L 3.5-5.1 [facility] Protein [Mass/Vol] 5.9 g/dL 6.4-8.2 [facility] Sodium [Moles/Vol] 142 mmol/L 136-145 [facility] Triglyceride [Mass/Vol] 174 mg/dL <199 [facility] Comment on above: The drugs N-Acetylcy steine and Metamizole may falsely depress this assay.Serum Triglycerides Reference Interval Normal <150 mg/dL Borderline high 150 - 199 mg/dL High 200 - 499 mg/dL Very High > or = 500 mg/dL WBC (Bld) [#/Vol] 7.0 10*3/uL 4.4-11.0 [facility] Blood erythrocytes count (nu mber/volume)Ordered By: Dr. Leo on 09-18-2022 RBC (Bld) [#/Vol] 4.64 10*6/uL 4.6-6.2 [facility] Blood hemoglobin measurement (mass/volume)Ordered By: Dr. Leo on 09-18-2022 Hemoglobin (Bld) [Mass/Vol] 13.2 g/dL 13.0-16.5 [facility] Blood lymphocytes/100 leukoc ytesOrdered By: Dr. Leo on 09-18-2022 Lymphocytes/100 WBC (Bld) 26.1 % 19-41 [facility] Blood monocytes/100 leukocyt esOrdered By: Dr. Leo on 09-18-2022 Monocytes/100 WBC (Bld) 10.4 % 0-10 [facility] Blood platelet mean volumeOr dered By: Dr. Leo on 09-18-2022 Platelet mean volume (Bld) [Entitic vol] 12.3 fL 6.2-12.0 [facility] Determination of erythrocyte mean corpuscular volume (MCV)Ordered By: Dr. Leo on 09-18-2022 MCV (RBC) [Entitic vol] 90.1 fL 80-94 [facility] Hematocrit Auto (Bld) [Volum e fraction]Ordered By: Dr. Leo on 09-18-2022 Hematocrit (Bld) [Volume fraction] 41.8 % 40-54 [facility] Laboratory - Chemistry and C hemistry - challengeOrdered By: Dr. Leo on 09-18-2022 ALP [Catalytic activity/Vol] 113 U/L 45-117 [facility] ALT [Catalytic activity/Vol] 31 U/L 16-61 [facility] CO2 [Moles/Vol] 26.0 mmol/L 21.0-32.0 [facility] Globulin (S) [Mass/Vol] 3.0 g/dL 2.2-4.2 [facility] Urea nitrogen/Creatinine [Mass ratio] 13.4 mg/mg 10-20 [facility] Laboratory - Hematology and Cell countsOrdered By: Dr. Leo on 09-18-2022 Erythrocyte distribution width (RBC) [Entitic vol] 46.9 fL 35.1-43.9 [facility] Erythrocyte distribution width (RBC) [Ratio] 14.4 % 11.6-14.6 [facility] Immature granulocytes/100 WBC (Bld) 0.300 % 0.0-0.9 [facility] Comment on above: IG% - Immature Granu locytes (promyelocytes, myelocytes and metamyelocytes) > 1% indicates that a LEFT SHIFT is Present. MCH (RBC) [Entitic mass] 28.4 pg 27.0-32.0 [facility] Nucleated RBC/100 WBC (Bld) [Ratio] 0 % 0-5 [facility] MCHC Auto (RBC) [Mass/Vol]Or dered By: Dr. Leo on 09-18-2022 MCHC (RBC) [Mass/Vol] 31.6 g/dL 32-36 [facility] No Panel InformationOrdered By: Dr. Leo on 09-18-2022 Estimated Creatinine Clearance Calc 47.13 ml/min [facility] Estimated GFR (MDRD) Amer 71 mL/min >60 [facility] Comment on above: GFR Calc Estimated GFR (MDRD) Non-Af Amer 58 mL/min >60 [facility] Comment on above: Non- GFR Calc Thyroid Stimulating Hormone (TSH) 3.64 uIU/mL 0.358-3.74 [facility] Troponin I High Sensitivity 8 pg/mL 3.0-78.0 [facility] Comment on above: Please Note: [place] t Units and Gender Specific Reference Ranges. For more information see Policy Stat Procedure [place] High Sensitivity Troponin (TNIH) and attachments. Platelets bldOrdered By: Dr. Leo on 09-18-2022 Platelets (Bld) [#/Vol] 131 10*3/uL 150-450 [facility] Serum or plasma albumin francine urement (mass/volume)Ordered By: Dr. Leo on 09-18-2022 Albumin [Mass/Vol] 2.9 g/dL 3.2-5.0 [facility] Serum or plasma albumin/glob ulin mass ratioOrdered By: Dr. Leo on 09-18-2022 Albumin/Globulin [Mass ratio] 1.0 {ratio} 0.9-2.4 [facility] Serum or plasma calcium francine urement (mass/volume)Ordered By: Dr. Leo on 09-18-2022 Calcium [Mass/Vol] 7.6 mg/dL 8.5-10.1 [facility] Serum or plasma cholesterol in HDL measurement (mass/volume)Ordered By: Dr. Leo on 09-18-2022 Cholesterol in HDL [Mass/Vol] 36 mg/dL >40 [facility] Comment on above: The drugs N-Acetylcy steine and Metamizole may falsely depress this assay. Reference Range HDL <40 mg/dL Low HDL Cholesterol HDL >or= 60 mg/dL High HDL Cholesterol Serum or plasma cholesterol in VLDL measurement (mass/volume)Ordered By: Dr. Leo on 09-18-2022 Cholesterol in VLDL [Mass/Vol] 35 mg/dL 5-40 [facility] Serum or plasma creatinine m easurement [...] Cholesterol in LDL [Mass/Vol] 43 mg/dL 0-130 [facility] Serum or plasma urea nitroge n measurement (mass/volume)Ordered By: Dr. Leo on 09-18-2022 Urea nitrogen [Mass/Vol] 17 mg/dL 7-18 [facility] Thin prep Papanicolaou smear with manual screeningOrdered By: Dr. Leo on 09-18-2022 Thin prep Papanicolaou smear with manual screening 21 U/L 15-37 [facility] Thin prep Papanicolaou smear with manual screening 8 5-15 [facility] Whole blood hemoglobin A1c/t otal hemoglobin ratio (mass fraction)Ordered By: Dr. Leo on 09-18-2022 HbA1c (Bld) [Mass fraction] 7.7 % 3.8-5.6 [facility] Comment on above: Normal < 5.7 % Predi abetic 5.7 - 6.4 % Diabetic >or= 6.5 % Please note range changes. INR in Blood by Coagulation assayOrdered By: Dr. Hall on 09-17-2022 INR Coag (Bld) [Relative time] 0.9 {INR} [facility] Laboratory - Chemistry and C hemistry - challengeOrdered By: Dr. Leo on 09-17-2022 Magnesium [Mass/Vol] 2.3 mg/dL 1.6-2.6 [facility] Laboratory - CoagulationOrde red By: Dr. Hall on 09-17-2022 aPTT Coag (Bld) [Time] 32.1 s 24.1-36.2 [facility] PT Coag (PPP) [Time] 12.3 s 11.7-14.9 [facility] Basophil percentageOrdered B y: Dr. Hay on 09-01-2022 Bilirubin [Mass/Vol] 0.70 mg/dL 0.20-1.00 [facility] Comment on above: For patients on eltr ombopag therapy, use of Dimension [place] TBIL is not recommended. Chloride [Moles/Vol] 112 mmol/L 98-107 [facility] Glucose [Mass/Vol] 151 mg/dL 74-106 [facility] Comment on above: Fasting Glucose resu lt greater than or equal to 126 mg/dL suggests DIABETES MELLITUS per A.D.A. criteria. Potassium [Moles/Vol] 3.9 mmol/L 3.5-5.1 [facility] Protein [Mass/Vol] 5.7 g/dL 6.4-8.2 [facility] Sodium [Moles/Vol] 142 mmol/L 136-145 [facility] WBC (Bld) [#/Vol] 4.7 10*3/uL 4.4-11.0 [facility] Blood erythrocytes count (nu mber/volume)Ordered By: Dr. Hay on 09-01-2022 RBC (Bld) [#/Vol] 4.60 10*6/uL 4.6-6.2 [facility] Blood hemoglobin measurement (mass/volume)Ordered By: Dr. Hay on 09-01-2022 Hemoglobin (Bld) [Mass/Vol] 13.0 g/dL 13.0-16.5 [facility] Blood platelet mean volumeOr dered By: Dr. Hay on 09-01-2022 Platelet mean volume (Bld) [Entitic vol] 12.8 fL 6.2-12.0 [facility] Determination of erythrocyte mean corpuscular volume (MCV)Ordered By: Dr. Hay on 09-01-2022 MCV (RBC) [Entitic vol] 89.1 fL 80-94 [facility] Hematocrit Auto (Bld) [Volum e fraction]Ordered By: Dr. Hay on 09-01-2022 Hematocrit (Bld) [Volume fraction] 41.0 % 40-54 [facility] Laboratory - Chemistry and C hemistry - challengeOrdered By: Dr. Hay on 09-01-2022 ALP [Catalytic activity/Vol] 149 U/L 45-117 [facility] ALT [Catalytic activity/Vol] 35 U/L 16-61 [facility] CO2 [Moles/Vol] 27.0 mmol/L 21.0-32.0 [facility] Globulin (S) [Mass/Vol] 2.9 g/dL 2.2-4.2 [facility] Urea nitrogen/Creatinine [Mass ratio] 15.8 mg/mg 10-20 [facility] Laboratory - Hematology and Cell countsOrdered By: Dr. Hay on 09-01-2022 Erythrocyte distribution width (RBC) [Entitic vol] 44.1 fL 35.1-43.9 [facility] Erythrocyte distribution width (RBC) [Ratio] 13.5 % 11.6-14.6 [facility] MCH (RBC) [Entitic mass] 28.3 pg 27.0-32.0 [facility] MCHC Auto (RBC) [Mass/Vol]Or dered By: Dr. Hay on 09-01-2022 MCHC (RBC) [Mass/Vol] 31.7 g/dL 32-36 [facility] No Panel InformationOrdered By: Dr. Hay on 09-01-2022 Estimated Creatinine Clearance Calc 46.51 ml/min [facility] Estimated GFR (MDRD) Amer 67 mL/min >60 [facility] Comment on above: GFR Calc Estimated GFR (MDRD) Non-Af Amer 55 mL/min >60 [facility] Comment on above: Non- GFR Calc Platelets bldOrdered By: Dr. Hay on 09-01-2022 Platelets (Bld) [#/Vol] 106 10*3/uL 150-450 [facility] Serum or plasma albumin francine urement (mass/volume)Ordered By: Dr. Hay on 09-01-2022 Albumin [Mass/Vol] 2.8 g/dL 3.2-5.0 [facility] Serum or plasma albumin/glob ulin mass ratioOrdered By: Dr. Hay on 09-01-2022 Albumin/Globulin [Mass ratio] 1.0 {ratio} 0.9-2.4 [facility] Serum or plasma calcium francine urement (mass/volume)Ordered By: Dr. Hay on 09-01-2022 Calcium [Mass/Vol] 8.0 mg/dL 8.5-10.1 [facility] Serum or plasma creatinine m easurement [...] 09-01-2022 Urea nitrogen [Mass/Vol] 21 mg/dL 7-18 [facility] Thin prep Papanicolaou smear with manual screeningOrdered By: Dr. Hay on 09-01-2022 Thin prep Papanicolaou smear with manual screening 21 U/L 15-37 [facility] Thin prep Papanicolaou smear with manual screening 3 5-15 [facility] No Panel InformationOrdered By: Dr. Hay on 08-31-2022 Activated Clotting Time 275 sec 74-137 [facility] Basophil percentageOrdered B y: Dr. Hay on 08-19-2022 Chloride [Moles/Vol] 108 mmol/L 98-107 [facility] Glucose [Mass/Vol] 158 mg/dL 74-106 [facility] Comment on above: Fasting Glucose resu lt greater than or equal to 126 mg/dL suggests DIABETES MELLITUS per A.D.A. criteria. Potassium [Moles/Vol] 4.3 mmol/L 3.5-5.1 [facility] Sodium [Moles/Vol] 137 mmol/L 136-145 [facility] WBC (Bld) [#/Vol] 8.2 10*3/uL 4.4-11.0 [facility] Blood erythrocytes count (nu mber/volume)Ordered By: Dr. Hay on 08-19-2022 RBC (Bld) [#/Vol] 5.05 10*6/uL 4.6-6.2 [facility] Blood hemoglobin measurement (mass/volume)Ordered By: Dr. Hay on 08-19-2022 Hemoglobin (Bld) [Mass/Vol] 14.3 g/dL 13.0-16.5 [facility] Blood platelet mean volumeOr dered By: Dr. Hay on 08-19-2022 Platelet mean volume (Bld) [Entitic vol] 12.5 fL 6.2-12.0 [facility] Determination of erythrocyte mean corpuscular volume (MCV)Ordered By: Dr. Hay on 08-19-2022 MCV (RBC) [Entitic vol] 88.3 fL 80-94 [facility] Hematocrit Auto (Bld) [Volum e fraction]Ordered By: Dr. Hay on 08-19-2022 Hematocrit (Bld) [Volume fraction] 44.6 % 40-54 [facility] INR in Blood by Coagulation assayOrdered By: Dr. Hay on 08-19-2022 INR Coag (Bld) [Relative time] 1.1 {INR} [facility] Laboratory - Chemistry and C hemistry - challengeOrdered By: Dr. Hay on 08-19-2022 CO2 [Moles/Vol] 25.0 mmol/L 21.0-32.0 [facility] Urea nitrogen/Creatinine [Mass ratio] 12.0 mg/mg 10-20 [facility] Laboratory - CoagulationOrde red By: Dr. Hay on 08-19-2022 aPTT Coag (Bld) [Time] 30.9 s 24.1-36.2 [facility] PT Coag (PPP) [Time] 13.4 s 11.7-14.9 [facility] Laboratory - Hematology and Cell countsOrdered By: Dr. Hay on 08-19-2022 Erythrocyte distribution width (RBC) [Entitic vol] 44.8 fL 35.1-43.9 [facility] Erythrocyte distribution width (RBC) [Ratio] 13.9 % 11.6-14.6 [facility] MCH (RBC) [Entitic mass] 28.3 pg 27.0-32.0 [facility] MCHC Auto (RBC) [Mass/Vol]Or dered By: Dr. Hay on 08-19-2022 MCHC (RBC) [Mass/Vol] 32.1 g/dL 32-36 [facility] No Panel InformationOrdered By: Dr. Hay on 08-19-2022 Estimated GFR (MDRD) Amer 72 mL/min >60 [facility] Comment on above: GFR Calc Estimated GFR (MDRD) Non-Af Amer 60 mL/min >60 [facility] Comment on above: Non- GFR Calc Platelets bldOrdered By: Dr. Hay on 08-19-2022 Platelets (Bld) [#/Vol] 151 10*3/uL 150-450 [facility] Serum or plasma calcium francine urement (mass/volume)Ordered By: Dr. Hay on 08-19-2022 Calcium [Mass/Vol] 9.0 mg/dL 8.5-10.1 [facility] Serum or plasma creatinine m easurement [...] 08-19-2022 Urea nitrogen [Mass/Vol] 15 mg/dL 7-18 [facility] Thin prep Papanicolaou smear with manual screeningOrdered By: Dr. Hay on 08-19-2022 Thin prep Papanicolaou smear with manual screening 4 5-15 [facility] Basophil percentageOrdered B y: Dr. Rodriguez on 06-11-2022 Chloride [Moles/Vol] 102 mmol/L 98-107 [facility] Glucose [Mass/Vol] 274 mg/dL 74-106 [facility] Comment on above: Glucose result great er than or equal to 200 mg/dLsuggests DIABETES MELLITUS per A.D.A. criteria. Potassium [Moles/Vol] 4.3 mmol/L 3.5-5.1 [facility] Sodium [Moles/Vol] 136 mmol/L 136-145 [facility] Laboratory - Chemistry and C hemistry - challengeOrdered By: Dr. Rodriguez on 06-11-2022 CO2 [Moles/Vol] 24.0 mmol/L 21.0-32.0 [facility] Magnesium [Mass/Vol] 2.2 mg/dL 1.6-2.6 [facility] Urea nitrogen/Creatinine [Mass ratio] 15.7 mg/mg 10-20 [facility] No Panel InformationOrdered By: Dr. Rodriguez on 06-11-2022 Estimated GFR (MDRD) Amer 67 mL/min >60 [facility] Comment on above: GFR Calc Estimated GFR (MDRD) Non-Af Amer 55 mL/min >60 [facility] Comment on above: Non- GFR Calc Serum or plasma calcium francine urement (mass/volume)Ordered By: Dr. Rodriguez on 06-11-2022 Calcium [Mass/Vol] 8.7 mg/dL 8.5-10.1 [facility] Serum or plasma creatinine m easurement [...] 06-11-2022 Urea nitrogen [Mass/Vol] 21 mg/dL 7-18 [facility] Thin prep Papanicolaou smear with manual screeningOrdered By: Dr. Rodriguez on 06-11-2022 Thin prep Papanicolaou smear with manual screening 10 5-15 [facility] Absolute lymphocyte countOrd ered By: Luz Elena Mckeon on 04-14-2022 Lymphocytes Auto (Unsp spec) [#/Vol] 1.60 10*3/uL 0.83-4.51 [facility] Basophil percentageOrdered B y: Luz Elena Mckeon on 04-14-2022 Basophils/100 WBC (Bld) 0.3 % 0-1 [facility] Chloride [Moles/Vol] 106 mmol/L 98-107 [facility] Eosinophils/100 WBC (Bld) 1.5 % 0-5 [facility] Glucose [Mass/Vol] 211 mg/dL 74-106 [facility] Comment on above: Glucose result great er than or equal to 200 mg/dLsuggests DIABETES MELLITUS per A.D.A. criteria. Neutrophils (Bld) [#/Vol] 3.8 10*3/uL 2.0-7.7 [facility] Neutrophils/100 WBC (Bld) 61.3 % 47-70 [facility] Potassium [Moles/Vol] 4.4 mmol/L 3.5-5.1 [facility] Sodium [Moles/Vol] 136 mmol/L 136-145 [facility] WBC (Bld) [#/Vol] 6.2 10*3/uL 4.4-11.0 [facility] Blood erythrocytes count (nu mber/volume)Ordered By: Luz Elena Mckeon on 04-14-2022 RBC (Bld) [#/Vol] 4.87 10*6/uL 4.6-6.2 [facility] Blood hemoglobin measurement (mass/volume)Ordered By: Luz Elena Mckeon on 04-14-2022 Hemoglobin (Bld) [Mass/Vol] 14.1 g/dL 13.0-16.5 [facility] Blood lymphocytes/100 leukoc ytesOrdered By: Luz Elena Mckeon on 04-14-2022 Lymphocytes/100 WBC (Bld) 25.8 % 19-41 [facility] Blood monocytes/100 leukocyt esOrdered By: Luz Elena Mckeon on 04-14-2022 Monocytes/100 WBC (Bld) 10.8 % 0-10 [facility] Blood platelet mean volumeOr dered By: Luz Elena Mckeon on 04-14-2022 Platelet mean volume (Bld) [Entitic vol] 12.8 fL 6.2-12.0 [facility] Determination of erythrocyte mean corpuscular volume (MCV)Ordered By: Luz Elena Mckeon on 04-14-2022 MCV (RBC) [Entitic vol] 88.1 fL 80-94 [facility] Hematocrit Auto (Bld) [Volum e fraction]Ordered By: Luz Elena Mckeon on 04-14-2022 Hematocrit (Bld) [Volume fraction] 42.9 % 40-54 [facility] Laboratory - Chemistry and C hemistry - challengeOrdered By: Luz Elena Mckeon on 04-14-2022 CO2 [Moles/Vol] 25.0 mmol/L 21.0-32.0 [facility] Natriuretic peptide B (Bld) [Mass/Vol] 54.2 pg/mL 0-100 [facility] Urea nitrogen/Creatinine [Mass ratio] 13.3 mg/mg 10-20 [facility] Laboratory - Hematology and Cell countsOrdered By: Luz Elena Mckeon on 04-14-2022 Erythrocyte distribution width (RBC) [Entitic vol] 44.7 fL 35.1-43.9 [facility] Erythrocyte distribution width (RBC) [Ratio] 13.9 % 11.6-14.6 [facility] Immature granulocytes/100 WBC (Bld) 0.300 % 0.0-0.9 [facility] Comment on above: IG% - Immature Granu locytes (promyelocytes, myelocytes and metamyelocytes) > 1% indicates that a LEFT SHIFT is Present. MCH (RBC) [Entitic mass] 29.0 pg 27.0-32.0 [facility] Nucleated RBC/100 WBC (Bld) [Ratio] 0 % 0-5 [facility] MCHC Auto (RBC) [Mass/Vol]Or dered By: Luz Elena Mckeon on 04-14-2022 MCHC (RBC) [Mass/Vol] 32.9 g/dL 32-36 [facility] No Panel InformationOrdered By: Luz Elena Mckeon on 04-14-2022 Estimated GFR (MDRD) Amer 81 mL/min >60 [facility] Comment on above: GFR Calc Estimated GFR (MDRD) Non-Af Amer 67 mL/min >60 [facility] Comment on above: Non- GFR Calc Platelets bldOrdered By: Loco Mckeon on 04-14-2022 Platelets (Bld) [#/Vol] 150 10*3/uL 150-450 [facility] Serum or plasma calcium francine urement (mass/volume)Ordered By: Luz Elena Mckeon on 04-14-2022 Calcium [Mass/Vol] 8.4 mg/dL 8.5-10.1 [facility] Serum or plasma creatinine m easurement [...] 04-14-2022 Urea nitrogen [Mass/Vol] 15 mg/dL 7-18 [facility] Thin prep Papanicolaou smear with manual screeningOrdered By: Luz Elena Mckeon on 04-14-2022 Thin prep Papanicolaou smear with manual screening 5 -15 [facility] Laboratory - Microbiology an d Antimicrobial susceptibilityon 03-27-2022 SARS-CoV-2 (COVID-19) RNA REAGAN+probe Ql (Unsp spec) Detected [facility] No Panel Informationon 03-27 Influenza Types A,B Rapid (Clinic) Not detected [facility] Absolute lymphocyte counton 11-21-2021 Lymphocytes Auto (Unsp spec) [#/Vol] 1.23 10*3/uL 0.83-4.51 [facility] Work Phone: [phone] Basophil percentageon 2021 Basophils/100 WBC (Bld) 0.3 % 0-1 [facility] Work Phone: [phone] Chloride [Moles/Vol] 106 mmol/L 98-107 [facility] Work Phone: Eosinophils/100 WBC (Bld) 1.2 % 0-5 [facility] Work Phone: Glucose [Mass/Vol] 166 mg/dL 74-106 [facility] Work Phone: Comment on above: Fasting Glucose resu lt greater than or equal to 126 mg/dL suggests DIABETES MELLITUS per A.D.A. criteria. Neutrophils (Bld) [#/Vol] 4.7 10*3/uL 2.0-7.7 [facility] Work Phone: Neutrophils/100 WBC (Bld) 69.8 % 47-70 [facility] Work Phone: Potassium [Moles/Vol] 4.2 mmol/L 3.5-5.1 [facility] Work Phone: [phone] Sodium [Moles/Vol] 140 mmol/L 136-145 [facility] Work Phone: WBC (Bld) [#/Vol] 6.7 10*3/uL 4.4-11.0 [facility] Work Phone: Blood erythrocytes count (nu mber/volume)on 11-21-2021 RBC (Bld) [#/Vol] 5.06 10*6/uL 4.6-6.2 [facility] Work Phone: Blood hemoglobin measurement (mass/volume)on 11-21-2021 Hemoglobin (Bld) [Mass/Vol] 14.3 g/dL 13.0-16.5 [facility] Work Phone: Blood lymphocytes/100 leukoc yteson 11-21-2021 Lymphocytes/100 WBC (Bld) 18.4 % 19-41 [facility] Work Phone: Blood monocytes/100 leukocyt eson 11-21-2021 Monocytes/100 WBC (Bld) 9.9 % 0-10 [facility] Work Phone: Blood platelet mean volumeon 11-21-2021 Platelet mean volume (Bld) [Entitic vol] 12.4 fL 6.2-12.0 [facility] Work Phone: Determination of erythrocyte mean corpuscular volume (MCV)on 11-21-2021 MCV (RBC) [Entitic vol] 89.1 fL 80-94 [facility] Work Phone: Hematocrit Auto (Bld) [Volum e fraction]on 11-21-2021 Hematocrit (Bld) [Volume fraction] 45.1 % 40-54 [facility] Work Phone: Laboratory - Chemistry and C hemistry - challengeon 11-21-2021 CO2 [Moles/Vol] 27.0 mmol/L 21.0-32.0 [facility] Work Phone: Natriuretic peptide B (Bld) [Mass/Vol] 60.9 pg/mL 0-100 [facility] Work Phone: Urea nitrogen/Creatinine [Mass ratio] 12.9 mg/mg 10-20 [facility] Work Phone: Laboratory - Hematology and Cell countson 11-21-2021 Erythrocyte distribution width (RBC) [Entitic vol] 45.1 fL 35.1-43.9 [facility] Work Phone: Erythrocyte distribution width (RBC) [Ratio] 14.0 % 11.6-14.6 [facility] Work Phone: Immature granulocytes/100 WBC (Bld) 0.400 % 0.0-0.9 [facility] Work Phone: Comment on above: IG% - Immature Granu locytes (promyelocytes, myelocytes and metamyelocytes) > 1% indicates that a LEFT SHIFT is Present. MCH (RBC) [Entitic mass] 28.3 pg 27.0-32.0 [facility] Work Phone: Nucleated RBC/100 WBC (Bld) [Ratio] 0 % 0-5 [facility] Work Phone: MCHC Auto (RBC) [Mass/Vol]on 11-21-2021 MCHC (RBC) [Mass/Vol] 31.7 g/dL 32-36 [facility] Work Phone: No Panel Informationon 11-21 Estimated GFR (MDRD) Amer 63 mL/min >60 [facility] Work Phone: Comment on above: GFR Calc Estimated GFR (MDRD) Non-Af Amer 52 mL/min >60 [facility] Work Phone: Comment on above: Non- GFR Calc Platelets bldon 11-21-2021 Platelets (Bld) [#/Vol] 135 10*3/uL 150-450 [facility] Work Phone: Serum or plasma calcium francine urement (mass/volume)on 11-21-2021 Calcium [Mass/Vol] 8.9 mg/dL 8.5-10.1 [facility] Work Phone: Serum or plasma creatinine m easurement (mass/volume)on 11-21-2021 Creatinine [Mass/Vol] 1.40 mg/dL 0.70-1.30 [facility] Work Phone: Comment on above: The validity of the calculated GFR & GFRAA in patients over 70 years has not been determined. Clinical correlation is essential. Serum or plasma urea nitroge n measurement (mass/volume)on 11-21-2021 Urea nitrogen [Mass/Vol] 18 mg/dL 7-18 [facility] Work Phone: Thin prep Papanicolaou smear with manual screeningon 11-21-2021 Thin prep Papanicolaou smear with manual screening 7 5-15 [facility] Work Phone: Absolute lymphocyte counton 11-16-2021 Lymphocytes Auto (Unsp spec) [#/Vol] 2.06 10*3/uL 0.83-4.51 [facility] Work Phone: Basophil percentageon 2021 Basophils/100 WBC (Bld) 0.3 % 0-1 [facility] Work Phone: Chloride [Moles/Vol] 104 mmol/L 98-107 [facility] Work Phone: Eosinophils/100 WBC (Bld) 1.4 % 0-5 [facility] Work Phone: Glucose [Mass/Vol] 170 mg/dL 74-106 [facility] Work Phone: Comment on above: Fasting Glucose resu lt greater than or equal to 126 mg/dL suggests DIABETES MELLITUS per A.D.A. criteria. Neutrophils (Bld) [#/Vol] 5.0 10*3/uL 2.0-7.7 [facility] Work Phone: Neutrophils/100 WBC (Bld) 62.3 % 47-70 [facility] Work Phone: Potassium [Moles/Vol] 4.4 mmol/L 3.5-5.1 [facility] Work Phone: Comment on above: Slight Hemolysis, Re sult may be falsely increased. Sodium [Moles/Vol] 137 mmol/L 136-145 [facility] Work Phone: WBC (Bld) [#/Vol] 7.9 10*3/uL 4.4-11.0 [facility] Work Phone: Blood erythrocytes count (nu mber/volume)on 11-16-2021 RBC (Bld) [#/Vol] 5.42 10*6/uL 4.6-6.2 [facility] Work Phone: Blood hemoglobin measurement (mass/volume)on 11-16-2021 Hemoglobin (Bld) [Mass/Vol] 15.6 g/dL 13.0-16.5 [facility] Work Phone: Blood lymphocytes/100 leukoc yteson 11-16-2021 Lymphocytes/100 WBC (Bld) 26.0 % 19-41 [facility] Work Phone: Blood monocytes/100 leukocyt eson 11-16-2021 Monocytes/100 WBC (Bld) 9.6 % 0-10 [facility] Work Phone: Blood platelet mean volumeon 11-16-2021 Platelet mean volume (Bld) [Entitic vol] 12.9 fL 6.2-12.0 [facility] Work Phone: Determination of erythrocyte mean corpuscular volume (MCV)on 11-16-2021 MCV (RBC) [Entitic vol] 89.3 fL 80-94 [facility] Work Phone: Hematocrit Auto (Bld) [Volum e fraction]on 11-16-2021 Hematocrit (Bld) [Volume fraction] 48.4 % 40-54 [facility] Work Phone: Laboratory - Chemistry and C hemistry - challengeon 11-16-2021 CO2 [Moles/Vol] 27.0 mmol/L 21.0-32.0 [facility] Work Phone: Urea nitrogen/Creatinine [Mass ratio] 11.6 mg/mg 10-20 [facility] Work Phone: Laboratory - Hematology and Cell countson 11-16-2021 Erythrocyte distribution width (RBC) [Entitic vol] 44.5 fL 35.1-43.9 [facility] Work Phone: Erythrocyte distribution width (RBC) [Ratio] 13.8 % 11.6-14.6 [facility] Work Phone: Immature granulocytes/100 WBC (Bld) 0.400 % 0.0-0.9 [facility] Work Phone: Comment on above: IG% - Immature Granu locytes (promyelocytes, myelocytes and metamyelocytes) > 1% indicates that a LEFT SHIFT is Present. MCH (RBC) [Entitic mass] 28.8 pg 27.0-32.0 [facility] Work Phone: Nucleated RBC/100 WBC (Bld) [Ratio] 0 % 0-5 [facility] Work Phone: MCHC Auto (RBC) [Mass/Vol]on 11-16-2021 MCHC (RBC) [Mass/Vol] 32.2 g/dL 32-36 [facility] Work Phone: No Panel Informationon 11-16 Troponin I High Sensitivity 7 pg/mL 3.0-78.0 [facility] Work Phone: Comment on above: Please Note: [place] t Units and Gender Specific Reference Ranges. For more information see Policy Stat Procedure [place] High Sensitivity Troponin (TNIH) and attachments. Estimated Creatinine Clearance Calc 45.54 ml/min [facility] Work Phone: Estimated GFR (MDRD) Amer 64 mL/min >60 [facility] Work Phone: Comment on above: GFR Calc Estimated GFR (MDRD) Non-Af Amer 53 mL/min >60 [facility] Work Phone: Comment on above: Non- GFR Calc Platelets bldon 11-16-2021 Platelets (Bld) [#/Vol] 142 10*3/uL 150-450 [facility] Work Phone: Serum or plasma calcium francine urement (mass/volume)on 11-16-2021 Calcium [Mass/Vol] 9.2 mg/dL 8.5-10.1 [facility] Work Phone: Serum or plasma creatinine m easurement (mass/volume)on 11-16-2021 Creatinine [Mass/Vol] 1.38 mg/dL 0.70-1.30 [facility] Work Phone: Comment on above: The validity of the calculated GFR & GFRAA in patients over 70 years has not been determined. Clinical correlation is essential. Serum or plasma urea nitroge n measurement (mass/volume)on 11-16-2021 Urea nitrogen [Mass/Vol] 16 mg/dL 7-18 [facility] Work Phone: Thin prep Papanicolaou smear with manual screeningon 11-16-2021 Thin prep Papanicolaou smear with manual screening 6 5-15 [facility] Work Phone: Basophil percentageon 2021 Chloride [Moles/Vol] 105 mmol/L 98-107 [facility] Work Phone: Glucose [Mass/Vol] 246 mg/dL 74-106 [facility] Work Phone: Comment on above: Glucose result great er than or equal to 200 mg/dLsuggests DIABETES MELLITUS per A.D.A. criteria. Potassium [Moles/Vol] 4.2 mmol/L 3.5-5.1 [facility] Work Phone: Sodium [Moles/Vol] 137 mmol/L 136-145 [facility] Work Phone: Laboratory - Chemistry and C hemistry - challengeon 10-28-2021 CO2 [Moles/Vol] 24.0 mmol/L 21.0-32.0 [facility] Work Phone: Urea nitrogen/Creatinine [Mass ratio] 15.6 mg/mg 10-20 [facility] Work Phone: No Panel Informationon 10-28 Estimated GFR (MDRD) Amer 74 mL/min >60 [facility] Work Phone: Comment on above: GFR Calc Estimated GFR (MDRD) Non-Af Amer 61 mL/min >60 [facility] Work Phone: Comment on above: Non- GFR Calc Serum or plasma calcium francine urement (mass/volume)on 10-28-2021 Calcium [Mass/Vol] 8.9 mg/dL 8.5-10.1 [facility] Work Phone: Serum or plasma creatinine m easurement (mass/volume)on 10-28-2021 Creatinine [Mass/Vol] 1.22 mg/dL 0.70-1.30 [facility] Work Phone: Comment on above: The validity of the calculated GFR & GFRAA in patients over 70 years has not been determined. Clinical correlation is essential. Serum or plasma urea nitroge n measurement (mass/volume)on 10-28-2021 Urea nitrogen [Mass/Vol] 19 mg/dL 7-18 [facility] Work Phone: Thin prep Papanicolaou smear with manual screeningon 10-28-2021 Thin prep Papanicolaou smear with manual screening 8 5-15 [facility] Work Phone: Whole blood hemoglobin A1c/t otal hemoglobin ratio (mass fraction)on 10-28-2021 HbA1c (Bld) [Mass fraction] 7.7 % 3.8-5.6 [facility] Work Phone: Comment on above: Normal < 5.7 % Predi abetic 5.7 - 6.4 % Diabetic >or= 6.5 % Please note range changes. Absolute lymphocyte counton 09-16-2021 Lymphocytes Auto (Unsp spec) [#/Vol] 1.24 10*3/uL 0.83-4.51 [facility] Work Phone: Basophil percentageon 2021 Basophils/100 WBC (Bld) 0.5 % 0-1 [facility] Work Phone: Chloride [Moles/Vol] 107 mmol/L 98-107 [facility] Work Phone: Eosinophils/100 WBC (Bld) 1.7 % 0-5 [facility] Work Phone: Glucose [Mass/Vol] 134 mg/dL 74-106 [facility] Work Phone: Comment on above: Fasting Glucose resu lt greater than or equal to 126 mg/dL suggests DIABETES MELLITUS per A.D.A. criteria. Neutrophils (Bld) [#/Vol] 4.4 10*3/uL 2.0-7.7 [facility] Work Phone: Neutrophils/100 WBC (Bld) 68.0 % 47-70 [facility] Work Phone: [phone] Potassium [Moles/Vol] 4.3 mmol/L 3.5-5.1 [facility] Work Phone: Sodium [Moles/Vol] 139 mmol/L 136-145 [facility] Work Phone: [phone] WBC (Bld) [#/Vol] 6.4 10*3/uL 4.4-11.0 [facility] Work Phone: Blood erythrocytes count (nu mber/volume)on 09-16-2021 RBC (Bld) [#/Vol] 4.84 10*6/uL 4.6-6.2 [facility] Work Phone: Blood hemoglobin measurement (mass/volume)on 09-16-2021 Hemoglobin (Bld) [Mass/Vol] 14.1 g/dL 13.0-16.5 [facility] Work Phone: Blood lymphocytes/100 leukoc yteson 09-16-2021 Lymphocytes/100 WBC (Bld) 19.3 % 19-41 [facility] Work Phone: Blood monocytes/100 leukocyt eson 09-16-2021 Monocytes/100 WBC (Bld) 10.0 % 0-10 [facility] Work Phone: Blood platelet mean volumeon 09-16-2021 Platelet mean volume (Bld) [Entitic vol] 12.7 fL 6.2-12.0 [facility] Work Phone: Determination of erythrocyte mean corpuscular volume (MCV)on 09-16-2021 MCV (RBC) [Entitic vol] 90.1 fL 80-94 [facility] Work Phone: Hematocrit Auto (Bld) [Volum e fraction]on 09-16-2021 Hematocrit (Bld) [Volume fraction] 43.6 % 40-54 [facility] Work Phone: Laboratory - Chemistry and C hemistry - challengeon 09-16-2021 CO2 [Moles/Vol] 27.0 mmol/L 21.0-32.0 [facility] Work Phone: Natriuretic peptide B (Bld) [Mass/Vol] 80.9 pg/mL 0-100 [facility] Work Phone: Urea nitrogen/Creatinine [Mass ratio] 13.7 mg/mg 10-20 [facility] Work Phone: Laboratory - Hematology and Cell countson 09-16-2021 Erythrocyte distribution width (RBC) [Entitic vol] 46.2 fL 35.1-43.9 [facility] Work Phone: Erythrocyte distribution width (RBC) [Ratio] 13.9 % 11.6-14.6 [facility] Work Phone: Immature granulocytes/100 WBC (Bld) 0.500 % 0.0-0.9 [facility] Work Phone: Comment on above: IG% - Immature Granu locytes (promyelocytes, myelocytes and metamyelocytes) > 1% indicates that a LEFT SHIFT is Present. MCH (RBC) [Entitic mass] 29.1 pg 27.0-32.0 [facility] Work Phone: Nucleated RBC/100 WBC (Bld) [Ratio] 0 % 0-5 [facility] Work Phone: MCHC Auto (RBC) [Mass/Vol]on 09-16-2021 MCHC (RBC) [Mass/Vol] 32.3 g/dL 32-36 [facility] Work Phone: No Panel Informationon 09-16 Estimated GFR (MDRD) Amer 73 mL/min >60 [facility] Work Phone: Comment on above: GFR Calc Estimated GFR (MDRD) Non-Af Amer 60 mL/min >60 [facility] Work Phone: Comment on above: Non- GFR Calc Platelets bldon 09-16-2021 Platelets (Bld) [#/Vol] 133 10*3/uL 150-450 [facility] Work Phone: Serum or plasma calcium francine urement (mass/volume)on 09-16-2021 Calcium [Mass/Vol] 9.0 mg/dL 8.5-10.1 [facility] Work Phone: Serum or plasma creatinine m easurement (mass/volume)on 09-16-2021 Creatinine [Mass/Vol] 1.24 mg/dL 0.70-1.30 [facility] Work Phone: Comment on above: The validity of the calculated GFR & GFRAA in patients over 70 years has not been determined. Clinical correlation is essential. Serum or plasma urea nitroge n measurement (mass/volume)on 09-16-2021 Urea nitrogen [Mass/Vol] 17 mg/dL 7-18 [facility] Work Phone: Thin prep Papanicolaou smear with manual screeningon 09-16-2021 Thin prep Papanicolaou smear with manual screening 5 5-15 [facility] Work Phone: Absolute lymphocyte counton 06-10-2021 Lymphocytes Auto (Unsp spec) [#/Vol] 1.00 10*3/uL 0.83-4.51 [facility] Work Phone: Basophil percentageon 2021 Basophils/100 WBC (Bld) 0.3 % 0-1 [facility] Work Phone: [phone] Chloride [Moles/Vol] 107 mmol/L 98-107 [facility] Work Phone: Eosinophils/100 WBC (Bld) 1.7 % 0-5 [facility] Work Phone: Glucose [Mass/Vol] 150 mg/dL 74-106 [facility] Work Phone: Comment on above: Fasting Glucose resu lt greater than or equal to 126 mg/dL suggests DIABETES MELLITUS per A.D.A. criteria. Neutrophils (Bld) [#/Vol] 4.9 10*3/uL 2.0-7.7 [facility] Work Phone: Neutrophils/100 WBC (Bld) 73.8 % 47-70 [facility] Work Phone: Potassium [Moles/Vol] 5.6 mmol/L 3.5-5.1 [facility] Work Phone: Comment on above: Moderate Hemolysis, Result may be falsely increased. Sodium [Moles/Vol] 139 mmol/L 136-145 [facility] Work Phone: WBC (Bld) [#/Vol] 6.7 10*3/uL 4.4-11.0 [facility] Work Phone: Blood erythrocytes count (nu mber/volume)on 06-10-2021 RBC (Bld) [#/Vol] 5.17 10*6/uL 4.6-6.2 [facility] Work Phone: Blood hemoglobin measurement (mass/volume)on 06-10-2021 Hemoglobin (Bld) [Mass/Vol] 15.5 g/dL 13.0-16.5 [facility] Work Phone: Blood lymphocytes/100 leukoc yteson 06-10-2021 Lymphocytes/100 WBC (Bld) 15.0 % 19-41 [facility] Work Phone: Blood monocytes/100 leukocyt eson 06-10-2021 Monocytes/100 WBC (Bld) 8.7 % 0-10 [facility] Work Phone: Blood platelet mean volumeon 06-10-2021 Platelet mean volume (Bld) [Entitic vol] 12.7 fL 6.2-12.0 [facility] Work Phone: Determination of erythrocyte mean corpuscular volume (MCV)on 06-10-2021 MCV (RBC) [Entitic vol] 89.6 fL 80-94 [facility] Work Phone: Hematocrit Auto (Bld) [Volum e fraction]on 06-10-2021 Hematocrit (Bld) [Volume fraction] 46.3 % 40-54 [facility] Work Phone: Laboratory - Chemistry and C hemistry - challengeon 06-10-2021 CO2 [Moles/Vol] 28.0 mmol/L 21.0-32.0 [facility] Work Phone: Urea nitrogen/Creatinine [Mass ratio] 12.7 mg/mg 10-20 [facility] Work Phone: Laboratory - Hematology and Cell countson 06-10-2021 Erythrocyte distribution width (RBC) [Entitic vol] 45.9 fL 35.1-43.9 [facility] Work Phone: Erythrocyte distribution width (RBC) [Ratio] 14.1 % 11.6-14.6 [facility] Work Phone: Immature granulocytes/100 WBC (Bld) 0.500 % 0.0-0.9 [facility] Work Phone: Comment on above: IG% - Immature Granu locytes (promyelocytes, myelocytes and metamyelocytes) > 1% indicates that a LEFT SHIFT is Present. MCH (RBC) [Entitic mass] 30.0 pg 27.0-32.0 [facility] Work Phone: Nucleated RBC/100 WBC (Bld) [Ratio] 0 % 0-5 [facility] Work Phone: MCHC Auto (RBC) [Mass/Vol]on 06-10-2021 MCHC (RBC) [Mass/Vol] 33.5 g/dL 32-36 [facility] Work Phone: No Panel Informationon 06-10 Troponin I High Sensitivity 10 pg/mL 3.0-78.0 [facility] Work Phone: Comment on above: Please Note: New Jana t Units and Gender Specific Reference Ranges. For more information see Policy Stat Procedure [facility] High Sensitivity Troponin (TNIH) and attachments. Estimated Creatinine Clearance Calc 47.63 ml/min [facility] Work Phone: Estimated GFR (MDRD) Amer 67 mL/min >60 [facility] Work Phone: Comment on above: GFR Calc Estimated GFR (MDRD) Non-Af Amer 55 mL/min >60 [facility] Work Phone: Comment on above: Non- GFR Calc Platelets bldon 06-10-2021 Platelets (Bld) [#/Vol] 146 10*3/uL 150-450 [facility] Work Phone: Serum or plasma calcium francine urement (mass/volume)on 06-10-2021 Calcium [Mass/Vol] 8.7 mg/dL 8.5-10.1 [facility] Work Phone: Serum or plasma creatinine m easurement (mass/volume)on 06-10-2021 Creatinine [Mass/Vol] 1.34 mg/dL 0.70-1.30 [facility] Work Phone: Comment on above: The validity of the calculated GFR & GFRAA in patients over 70 years has not been determined. Clinical correlation is essential. Serum or plasma urea nitroge n measurement (mass/volume)on 06-10-2021 Urea nitrogen [Mass/Vol] 17 mg/dL 7-18 [facility] Work Phone: Thin prep Papanicolaou smear with manual screeningon 06-10-2021 Thin prep Papanicolaou smear with manual screening 4 5-15 [facility] Work Phone: Absolute lymphocyte counton 05-19-2021 Lymphocytes Auto (Unsp spec) [#/Vol] 1.72 10*3/uL 0.83-4.51 [facility] Work Phone: Basophil percentageon 2021 Basophils/100 WBC (Bld) 0.4 % 0-1 [facility] Work Phone: Bilirubin [Mass/Vol] 1.20 mg/dL 0.20-1.00 [facility] Work Phone: Comment on above: For patients on eltr ombopag therapy, use of Dimension [place] TBIL is not recommended. Chloride [Moles/Vol] 106 mmol/L 98-107 [facility] Work Phone: Eosinophils/100 WBC (Bld) 1.2 % 0-5 [facility] Work Phone: [phone] Glucose [Mass/Vol] 182 mg/dL 74-106 [facility] Work Phone: Comment on above: Fasting Glucose resu lt greater than or equal to 126 mg/dL suggests DIABETES MELLITUS per A.D.A. criteria. Neutrophils (Bld) [#/Vol] 6.6 10*3/uL 2.0-7.7 [facility] Work Phone: Neutrophils/100 WBC (Bld) 70.5 % 47-70 [facility] Work Phone: Potassium [Moles/Vol] 3.8 mmol/L 3.5-5.1 [facility] Work Phone: Protein [Mass/Vol] 7.9 g/dL 6.4-8.2 [facility] Work Phone: Sodium [Moles/Vol] 139 mmol/L 136-145 [facility] Work Phone: WBC (Bld) [#/Vol] 9.4 10*3/uL 4.4-11.0 [facility] Work Phone: Basophil percentage 0 SEEN /hpf [facility] Work Phone: Bilirubin Test strip Ql (U)o n 05-19-2021 Bilirubin Ql (U) Negative Negative [facility] Work Phone: Blood erythrocytes count (nu mber/volume)on 05-19-2021 RBC (Bld) [#/Vol] 5.30 10*6/uL 4.6-6.2 [facility] Work Phone: Blood hemoglobin measurement (mass/volume)on 05-19-2021 Hemoglobin (Bld) [Mass/Vol] 15.3 g/dL 13.0-16.5 [facility] Work Phone: Blood lymphocytes/100 leukoc yteson 05-19-2021 Lymphocytes/100 WBC (Bld) 18.3 % 19-41 [facility] Work Phone: Blood monocytes/100 leukocyt eson 05-19-2021 Monocytes/100 WBC (Bld) 9.3 % 0-10 [facility] Work Phone: Blood platelet mean volumeon 05-19-2021 Platelet mean volume (Bld) [Entitic vol] 12.5 fL 6.2-12.0 [facility] Work Phone: Determination of erythrocyte mean corpuscular volume (MCV)on 05-19-2021 MCV (RBC) [Entitic vol] 89.8 fL 80-94 [facility] Work Phone: Hematocrit Auto (Bld) [Volum e fraction]on 05-19-2021 Hematocrit (Bld) [Volume fraction] 47.6 % 40-54 [facility] Work Phone: Ketones Test strip Ql (U)on 05-19-2021 Ketones Ql (U) Negative Negative [facility] Work Phone: Laboratory - Chemistry and C hemistry - challengeon 05-19-2021 ALP [Catalytic activity/Vol] 156 U/L 45-117 [facility] Work Phone: ALT [Catalytic activity/Vol] 44 U/L 16-61 [facility] Work Phone: CO2 [Moles/Vol] 26.0 mmol/L 21.0-32.0 [facility] Work Phone: Globulin (S) [Mass/Vol] 4.2 g/dL 2.2-4.2 [facility] Work Phone: Lipase [Catalytic activity/Vol] 199 U/L 73-393 [facility] Work Phone: Urea nitrogen/Creatinine [Mass ratio] 13.8 mg/mg 10-20 [facility] Work Phone: Laboratory - Hematology and Cell countson 05-19-2021 Erythrocyte distribution width (RBC) [Entitic vol] 46.7 fL 35.1-43.9 [facility] Work Phone: Erythrocyte distribution width (RBC) [Ratio] 14.3 % 11.6-14.6 [facility] Work Phone: Immature granulocytes/100 WBC (Bld) 0.300 % 0.0-0.9 [facility] Work Phone: Comment on above: IG% - Immature Granu locytes (promyelocytes, myelocytes and metamyelocytes) > 1% indicates that a LEFT SHIFT is Present. MCH (RBC) [Entitic mass] 28.9 pg 27.0-32.0 [facility] Work Phone: Nucleated RBC/100 WBC (Bld) [Ratio] 0 % 0-5 [facility] Work Phone: MCHC Auto (RBC) [Mass/Vol]on 05-19-2021 MCHC (RBC) [Mass/Vol] 32.1 g/dL 32-36 [facility] Work Phone: Mucus LM Ql (Urine sed)on Mucus Ql (Urine sed) 0 SEEN /hpf [facility] Work Phone: Nitrite Test strip Ql (U)on 05-19-2021 Nitrite Ql (U) Negative Negative [facility] Work Phone: No Panel Informationon 05-19 Estimated Creatinine Clearance Calc 46.25 ml/min [facility] Work Phone: Estimated GFR (MDRD) Amer 65 mL/min >60 [facility] Work Phone: Comment on above: GFR Calc Estimated GFR (MDRD) Non-Af Amer 53 mL/min >60 [facility] Work Phone: Comment on above: Non- GFR Calc Platelets bldon 05-19-2021 Platelets (Bld) [#/Vol] 158 10*3/uL 150-450 [facility] Work Phone: Protein Test strip Ql (U)on 05-19-2021 Protein Ql (U) Negative Negative [facility] Work Phone: Serum or plasma albumin francine urement (mass/volume)on 05-19-2021 Albumin [Mass/Vol] 3.7 g/dL 3.2-5.0 [facility] Work Phone: Serum or plasma albumin/glob ulin mass ratioon 05-19-2021 Albumin/Globulin [Mass ratio] 0.9 {ratio} 0.9-2.4 [facility] Work Phone: Serum or plasma calcium francine urement (mass/volume)on 05-19-2021 Calcium [Mass/Vol] 9.2 mg/dL 8.5-10.1 [facility] Work Phone: Serum or plasma creatinine m easurement (mass/volume)on 05-19-2021 Creatinine [Mass/Vol] 1.38 mg/dL 0.70-1.30 [facility] Work Phone: Comment on above: The validity of the calculated GFR & GFRAA in patients over 70 years has not been determined. Clinical correlation is essential. Serum or plasma urea nitroge n measurement (mass/volume)on 05-19-2021 Urea nitrogen [Mass/Vol] 19 mg/dL 7-18 [facility] Work Phone: Squamous epithelial cells de tection in urine sediment by light microscopyon 05-19-2021 Epithelial cells.squamous LM Ql (Urine sed) 0 SEEN /hpf [facility] Work Phone: Thin prep Papanicolaou smear with manual screeningon 05-19-2021 Thin prep Papanicolaou smear with manual screening 25 U/L 15-37 [facility] Work Phone: Thin prep Papanicolaou smear with manual screening 7 5-15 [facility] Work Phone: Urine blood detectionon 05-03 RBC Ql (U) Negative Negative [facility] Work Phone: RBC Ql (U) 0 SEEN /hpf [facility] Work Phone: Urine clarityon 05-19-2021 Clarity (U) Clear Clear [facility] Work Phone: Urine color determinationon 05-19-2021 Color (U) Straw Yellow [facility] Work Phone: Urine glucose detectionon Glucose Ql (U) Normal mg/dl Normal [facility] Work Phone: Urine leukocyte esterase det ection by dipstickon 05-19-2021 Leukocyte esterase Test strip Ql (U) Negative Negative [facility] Work Phone: Urine pHon 05-19-2021 pH (U) 5.0 [pH] [facility] Work Phone: Urine sediment bacteria coun t by microscopy (number/high power field)on 05-19-2021 Bacteria LM.HPF (Urine sed) [#/Area] 0 /[HPF] None Seen [facility] Work Phone: Urine specific gravity measu rementon 05-19-2021 Specific gravity (U) [Rel density] 1.010 [facility] Work Phone: Urobilinogen Auto test strip [...] descending thoracic aorta is tortuous within its meo-yj-bqboqm course but is not aneurysmal. The abdominal [...] particularly at L4-L5 and L5-S1. IMAGING FACILITY: [facility]. 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 Physician: PROCEDURE(S) PERFORMED: Clinical History: Prior smoker, quit date: Diabetes Mellitus: Yes Hypertension: Yes Dyslipidemia: Yes Prior CA: Yes Other: Stroke Prior PCI: Yes 2016 [...] right femoral artery - 6F. 10 cm [place] Catheters were advanced using standard guide wire [...] Equipment: Sheath(s) [employer] 4F MICROPUNCTURE KIT PackLate.com 6F 10CM Hutchinson SHEATH Wire(s) [employer] J WIRE FIXED MERIT .035 X 150CM GUIDEWIRE Catheter(s) SquareOne JR4 DIAG CATH 6F [employer]One JR4 DIAG CATH 6F [employer]One PIGTAIL STRAIGHT DIAG CATH 6F See Nursing Notes for further details Signed By Eladio Ingram MD On 01/10/2021 11:05:05 Eladio Ingram MD _ _ [facility] ECHOCARDIOGRAM 2D COMPLETEOr dered By: Eladio Ingram on 10-15-2020 Aortic valve area 2.47152 cm [facility] AV mean gradient 6 mmHg [facility] EF 62.7797 % [facility] Patient Info Name: Morro RICO Age: 75 years : 1945 Gender: Male Ht: 175 cm Wt: 106 kg BSA: 2.31 m2 HR: 50 bpm BP: 134 / 72 mmHg Heart Rhythm: Bradycardia, Sinus Rhythm Technical Quality: Fair, Technically difficult Exam Date: 10/15/2020 12:57 PM Patient Status: Outpatient Mortuary Operations Manager: Tracy Bonilla, RDCS, RVT Exam Type: ECHOCARDIOGRAM COMPLETE W CONTRAST Study Info Indications - Dyspnea Attending Physician: ELADIO INGRAM Referring Physician: ELADIO INGRAM ; [id number] BMI: 34.56 kg/m2 Summary 1. Left ventricular systolic function is normal, with ejection fraction estimated at 60 +/- 5%. 2. The left ventricular diastolic function is normal. 3. 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 4. There is no aortic valve stenosis. History/Risk Factors Hypertension: Yes Dyslipidemia: Yes Diabetic Therapy: Oral Peripheral Arterial Disease (PAD): Yes Myocardial Infarction (CA): Yes Coronary Artery Disease (CAD) Yes Congestive Heart Failure (CHF): Hx CHF Date of Prior CA: 05/03/2008 Diabetes Mellitus: Yes History/Risk Factors sleep [...] Velocity 1.09 m/s (more content not included)... [facility], Rad In artlab Xper Echopacs - 10/15/2020 4:30 PM EDT Patient Info Name: ERIBERTO RICO Age: 75 years : 1945 Gender: Male Ht: 175 cm Wt: 106 kg BSA: 2.31 m2 HR: 50 bpm BP: 134 / 72 mmHg Heart Rhythm: Bradycardia, Sinus Rhythm Technical Quality: Fair, Technically difficult Exam Date: 10/15/2020 12:57 PM Patient Status: Outpatient Mortuary Operations Manager: Tracy Bonilla, MONICACS, RVT Exam Type: ECHOCARDIOGRAM COMPLETE W CONTRAST Study Info Indications - Dyspnea Attending Physician: ELADIO INGRAM Referring Physician: ELADIO INGRAM ; [id number] BMI: 34.56 kg/m2 Summary 1. Left ventricular systolic function is normal, with ejection fraction estimated at 60 +/- 5%. 2. The left ventricular diastolic function is normal. 3. 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 4. There is no aortic valve stenosis. History/Risk Factors Hypertension: Yes Dyslipidemia: Yes Diabetic Therapy: Oral Peripheral Arterial Disease (PAD): Yes Myocardial Infarction (CA): Yes Coronary Artery Disease (CAD) Yes Congestive Heart Failure (CHF): Hx CHF Date of Prior CA: 05/03/2008 Diabetes Mellitus: Yes History/Risk Factors sleep [...] mmHg MV VTI 46 cm MV Decel [place] 333 cm/s2 MV PHT 38 ms MV Area (PHT) 5.8 cm2 4.0-5.0 MV Area (Cont Eq VTI) 2.5 cm2 MV Area Index (Cont Eq VTI) 1.06 cm2/m2 MV Di (more content not included)... [facility] ECHOCARDIOGRAM COMPLETE W CO NTRASTon 10-15-2020 ECHOCARDIOGRAM COMPLETE W CONTRAST Patient Info Name: ERIBERTO RICO Age: 75 years : 1945 Gender: Male Ht: 175 cm Wt: 106 kg BSA: 2.31 m2 HR: 50 bpm BP: 134 / 72 mmHg Heart Rhythm: Bradycardia, Sinus Rhythm Technical Quality: Fair, Technically difficult Exam Date: 10/15/2020 12:57 PM Patient Status: Outpatient Mortuary Operations Manager: Tracy Bonilla, DRU, RVT Exam Type: ECHOCARDIOGRAM COMPLETE W CONTRAST Study Info Indications - Dyspnea Attending Physician: ELADIO INGRAM Referring Physician: ELADIO INGRAM ; [id number] BMI: 34.56 kg/m2 Summary 1. Left ventricular systolic function is normal, with ejection fraction estimated at 60 +/- 5%. 2. The left ventricular diastolic function is normal. 3. 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 4. There is no aortic valve stenosis. History/Risk Factors Hypertension: Yes Dyslipidemia: Yes Diabetic Therapy: Oral Peripheral Arterial Disease (PAD): Yes Myocardial Infarction (CA): Yes Coronary Artery Disease (CAD) Yes Congestive Heart Failure (CHF): Hx CHF Date of Prior CA: 05/03/2008 Diabetes Mellitus: Yes History/Risk Factors sleep [...] mmHg MV VTI 46 cm MV Decel [place] 333 cm/s2 MV PHT 38 ms MV Area (PHT) 5.8 cm2 4.0-5.0 MV Area (Cont Eq VTI) 2.5 cm2 MV Area Index (Cont Eq VTI) 1.06 cm2/m2 MV Diastolic Function MV E Peak Velocity 1 m/s MV A Peak Velocity 1 m/s MV E/A 1.2 MV (more content not included)... Normal [facility] Ambulatory ECG 12-LEADOrdered By: Fernanda Acuña on 10-09-2020 Atrial Rate [facility] P [facility] P-R Interval [facility] Q-T Interval [facility] Q-T Interval (corrected) [facility] QRS Duration [facility] QTC Calculation (Bezet) [facility] R [facility] T [facility] Ventricular Rate [facility] Auto Diffon 09-15-2018 Basophils #/vol (Bld) 0.0 E3/mcL Normal 0.0-0.2 [facility] Comment on above: Order Comment: Order Added by Discern Expert. Performed By: #### 2 [id number] #### [employer] [address] [place] [address] Basophils/100 WBC (Bld) 0.6 % Normal 0.0-2.0 [facility] Comment on above: Order Comment: Order Added by Discern Expert. Performed By: #### 2 [id number] #### [employer] [address] [place] [address] Eos Absolute 0.1 E3/mcL Normal 0.0-0.7 [facility] Comment on above: Order Comment: Order Added by Discern Expert. Performed By: #### 2 [id number] #### [employer] [address] [place] [address] Eosinophils/100 WBC (Bld) 2.2 % Normal 0.0-11.0 [facility] Comment on above: Order Comment: Order Added by Discern Expert. Performed By: #### 2 [id number] #### [employer] [address] [place] [address] Lymphocytes #/vol (Bld) 1.9 E3/mcL Normal 1.2-3.4 [facility] Comment on above: Order Comment: Order Added by Discern Expert. Performed By: #### 2 [id number] #### [employer] [address] [place] [address] Lymphocytes/100 WBC (Bld) 31.0 % Normal 20.0-55.0 [facility] Comment on above: Order Comment: Order Added by Discern Expert. Performed By: #### 2 [id number] #### [employer] [address] [place] [address] Whitman Absolute 0.8 E3/mcL High 0.0-0.7 [facility] Comment on above: Order Comment: Order Added by Discern Expert. Performed By: #### 2 [id number] #### [employer] [address] [place] [address] Monocytes/100 WBC (Bld) 13.2 % High 0.0-10.0 [facility] Comment on above: Order Comment: Order Added by Discern Expert. Performed By: #### 2 [id number] #### [employer] [address] [place] [address] Neutro Absolute 3.3 E3/mcL Normal 1.4-6.5 [facility] Comment on above: Order Comment: Order Added by Discern Expert. Performed By: #### 2 [id number] #### [employer] [address] [place] [address] Neutro Auto 53.0 % Normal 37.0-75.0 [facility] Comment on above: Order Comment: Order Added by Discern Expert. Performed By: #### 2 [id number] #### [employer] [address] [place] [address] BMPon 09-15-2018 Anion gap molar conc 10 mmol/L Normal 10-20 [facility] Comment on above: Performed By: #### 2 [id number] #### [employer] [address] [place] [address] Calcium mass conc 8.4 mg/dL Low 8.6-10.3 [facility] Comment on above: Performed By: #### 2 [id number] #### [employer] [address] [place] [address] Chloride molar conc 105 mmol/L Normal 98-107 [facility] Comment on above: Performed By: #### 2 [id number] #### [employer] [address] [place] [address] CO2 molar conc 26.0 mmol/L Normal 21.0-32.0 [facility] Comment on above: Performed By: #### 2 [id number] #### [employer] [address] [place] [address] Creatinine mass conc 1.1 mg/dL Normal 0.5-1.3 [facility] Comment on above: Performed By: #### 2 [id number] #### [employer] [address] [place] [address] Glucose mass conc 136 mg/dL High 70-99 [facility] Comment on above: Performed By: #### 2 [id number] #### [employer] [address] [place] [address] Potassium molar conc 4.1 mmol/L Normal 3.5-5.3 [facility] Comment on above: Performed By: #### 2 [id number] #### [employer] [address] [place] [address] Sodium molar conc 137 mmol/L Normal 136-145 [facility] Comment on above: Performed By: #### 2 [id number] #### [employer] [address] [place] [address] Urea nitrogen mass conc 19 mg/dL Normal 6-23 [facility] Comment on above: Performed By: #### 2 [id number] #### [employer] [address] [place] [address] Urea nitrogen/Creatinine mass ratio 17.3 ratio Normal 5.4-30.0 [facility] Comment on above: Performed By: #### 2 [id number] #### [employer] [address] [place], [place] [id number] CBC w/ Auto Diffon 9 Erythrocyte distribution width Ratio (RBC) 14.9 % High 11.5-14.5 [facility] Comment on above: Performed By: #### 2 [id number] #### [facility] [employer] [address] [place] [address] Hematocrit Volume Fraction (Bld) 41.5 % Low 42.0-52.0 [facility] Comment on above: Performed By: #### 2 [id number] #### [employer] [address] [place] [address] Hemoglobin mass conc (Bld) 13.6 g/dL Normal 13.5-18.0 [facility] Comment on above: Performed By: #### 2 [id number] #### [facility] [employer] [address] [place] [address] MCH Entitic mass (RBC) 29.6 pg Normal 27.0-31.0 [facility] Comment on above: Performed By: #### 2 [id number] #### [employer] [address] [place] [address] MCHC mass conc (RBC) 32.8 g/dL Low 33.0-37.0 [facility] Comment on above: Performed By: #### 2 [id number] #### [employer] [address] [place], [place] [id number] MCV Entitic volume (RBC) 90.4 fL Normal 78.0-100.0 [facility] Comment on above: Performed By: #### 2 [id number] #### [employer] [address] [place] [address] Platelet mean volume Entitic volume (Bld) 10.8 fL Normal 7.4-11.0 [facility] Comment on above: Performed By: #### 2 [id number] #### [employer] [address] [place] [address] Platelets #/vol (Bld) 137 E3/mcL Normal 130-400 [facility] Comment on above: Performed By: #### 2 [id number] #### [employer] [address] [place] [address] RBC #/vol (Bld) 4.59 E6/mcL Normal 3.90-6.10 [facility] Comment on above: Performed By: #### 2 [id number] #### [employer] [facility] [place] [address] WBC #/vol (Bld) 6.2 E3/mcL Normal 3.6-11.0 [facility] Comment on above: Performed By: #### 2 [id number] #### [employer] [address] [place] [address] Glucose POCon 09-15-2018 Glucose mass conc 163 mg/dL High 70-99 [facility] Comment on above: Performed By: #### 2 [id number] #### [employer] [address] [place] [address] Glucose mass conc 99 mg/dL Normal 70-99 [facility] Comment on above: Performed By: #### 2 [id number] #### [employer] [address] [place] [address] Troponin-Ion 09-15-2018 Troponin I.cardiac mass conc 0.01 ng/mL Normal 0.00-0.03 [facility] Comment on above: Performed By: #### 2 [id number] #### [employer] [address] [place], [place] [id number] eGFRon 09-15-2018 GFR/1.73 sq M predicted among non-blacks MDRD vol rate/area (S/P/Bld) mL/min/{1.73_m2} Normal [facility] Comment on above: Order Comment: Order added by Discern Expert. Performed By: #### 2 [id number] #### [employer] [address] [place] [address] Auto Diffon 09-14-2018 Basophils #/vol (Bld) 0.0 E3/mcL Normal 0.0-0.2 [facility] Comment on above: Order Comment: Order Added by Discern Expert. Performed By: #### 2 [id number] #### [employer] [address] [place] [address] Basophils/100 WBC (Bld) 0.6 % Normal 0.0-2.0 [facility] Comment on above: Order Comment: Order Added by Discern Expert. Performed By: #### 2 [id number] #### [employer] [address] [place] [address] Eos Absolute 0.1 E3/mcL Normal 0.0-0.7 [facility] Comment on above: Order Comment: Order Added by Discern Expert. Performed By: #### 2 [id number] #### [employer] [address] [place] [address] Eosinophils/100 WBC (Bld) 1.7 % Normal 0.0-11.0 [facility] Comment on above: Order Comment: Order Added by Discern Expert. Performed By: #### 2 [id number] #### [employer] [address] [place] [address] Lymphocytes #/vol (Bld) 1.2 E3/mcL Normal 1.2-3.4 [facility] Comment on above: Order Comment: Order Added by Discern Expert. Performed By: #### 2 [id number] #### [employer] [address] [place] [address] Lymphocytes/100 WBC (Bld) 16.5 % Low 20.0-55.0 [facility] Comment on above: Order Comment: Order Added by Discern Expert. Performed By: #### 2 [id number] #### [employer] [address] [place] [address] Whitman Absolute 0.8 E3/mcL High 0.0-0.7 [facility] Comment on above: Order Comment: Order Added by Discern Expert. Performed By: #### 2 [id number] #### [employer] [address] [place] [id number] Monocytes/100 WBC (Bld) 11.1 % High 0.0-10.0 [facility] Comment on above: Order Comment: Order Added by Discern Expert. Performed By: #### 2 [id number] #### [employer] [address] [place] [address] Neutro Absolute 5.1 E3/mcL Normal 1.4-6.5 [facility] Comment on above: Order Comment: Order Added by Discern Expert. Performed By: #### 2 [id number] #### [facility] [facility] [place] [id number] Neutro Auto 70.1 % Normal 37.0-75.0 [facility] Comment on above: Order Comment: Order Added by Discern Expert. Performed By: #### 2 [id number] #### [employer] [address] [place] [address] BMPon 09-14-2018 Anion gap molar conc 13 mmol/L Normal 10-20 [facility] Comment on above: Performed By: #### 2 [id number] #### [employer] [address] [place] [address] Calcium mass conc 9.2 mg/dL Normal 8.6-10.3 [facility] Comment on above: Performed By: #### 2 [id number] #### [employer] [address] [place] [address] Chloride molar conc 105 mmol/L Normal 98-107 [facility] Comment on above: Performed By: #### 2 [id number] #### [employer] [address] [place] [address] CO2 molar conc 24.0 mmol/L Normal 21.0-32.0 [facility] Comment on above: Performed By: #### 2 [id number] #### [employer] [address] [place] [address] Creatinine mass conc 1.2 mg/dL Normal 0.5-1.3 [facility] Comment on above: Performed By: #### 2 [id number] #### [employer] [address] [place] [address] Glucose mass conc 129 mg/dL High 70-99 [facility] Comment on above: Performed By: #### 2 [id number] #### [employer] [address] [place] [address] Potassium molar conc 3.9 mmol/L Normal 3.5-5.3 [facility] Comment on above: Performed By: #### 2 [id number] #### [facility] [employer] [address] [place], [place] [id number] Sodium molar conc 138 mmol/L Normal 136-145 [facility] Comment on above: Performed By: #### 2 [id number] #### [employer] [address] [place] [address] Urea nitrogen mass conc 19 mg/dL Normal 6-23 [facility] Comment on above: Performed By: #### 2 [id number] #### [facility] [employer] [address] [place], [place] [id number] Urea nitrogen/Creatinine mass ratio 15.8 ratio Normal 5.4-30.0 [facility] Comment on above: Performed By: #### 2 [id number] #### [facility] [employer] [address] [place], [place] [id number] CBC w/ Auto Diffon 9 Erythrocyte distribution width Ratio (RBC) 15.2 % High 11.5-14.5 [facility] Comment on above: Performed By: #### 2 [id number] #### [employer] [address] [place], [place] [id number] Hematocrit Volume Fraction (Bld) 45.0 % Normal 42.0-52.0 [facility] Comment on above: Performed By: #### 2 [id number] #### [employer] [address] [place], [place] [address] Hemoglobin mass conc (Bld) 15.0 g/dL Normal 13.5-18.0 [facility] Comment on above: Performed By: #### 2 [id number] #### [employer] [address] [place] [address] MCH Entitic mass (RBC) 29.8 pg Normal 27.0-31.0 [facility] Comment on above: Performed By: #### 2 [id number] #### [employer] [address] [place], [place] [address] MCHC mass conc (RBC) 33.4 g/dL Normal 33.0-37.0 [facility] Comment on above: Performed By: #### 2 [id number] #### [employer] [address] [place] [address] MCV Entitic volume (RBC) 89.4 fL Normal 78.0-100.0 [facility] Comment on above: Performed By: #### 2 [id number] #### [employer] [address] [place] [address] Platelet mean volume Entitic volume (Bld) 10.8 fL Normal 7.4-11.0 [facility] Comment on above: Performed By: #### 2 [id number] #### [employer] [address] [place] [address] Platelets #/vol (Bld) 158 E3/mcL Normal 130-400 [facility] Comment on above: Performed By: #### 2 [id number] #### [employer] [address] [place] [address] RBC #/vol (Bld) 5.04 E6/mcL Normal 3.90-6.10 [facility] Comment on above: Performed By: #### 2 [id number] #### [employer] [address] [place] [address] WBC #/vol (Bld) 7.2 E3/mcL Normal 3.6-11.0 [facility] Comment on above: Performed By: #### 2 [id number] #### [employer] [address] [place] [address] CT Head or Brain w/o Contras ton 09-14-2018 CT Head or Brain w/o Contrast Exam Date/Time: 09/14/2018 15:21 EDT Reason for Exam: Injury Report STUDY: CT Head or Brain w/o Contrast; 09/14/2018 3:21 pm INDICATION: Injury. COMPARISON: 11/28/2016 ACCESSION NUMBER(S): [id number] ORDERING CLINICIAN: Kirsty Nguyen TECHNIQUE: Volume acquisition [...] by: Radha Olivarez MD Technologist: IZAIAH Normal [facility] CT Spine Cervical w/o Contra ston 09-14-2018 CT Spine Cervical w/o Contrast Exam Date/Time: 09/14/2018 15:22 EDT Reason for Exam: Trauma Report STUDY: CT Spine Cervical w/o Contrast; 09/14/2018 3:22 pm INDICATION: Trauma. COMPARISON: None. ACCESSION NUMBER(S): [id number] ORDERING CLINICIAN: Kirsty Nguyen TECHNIQUE: Axial CT [...] by: Radha Olivarez MD Technologist: IZAIAH Normal [facility] Glucose POCon 09-14-2018 Glucose mass conc 132 mg/dL High 70-99 [facility] Comment on above: Performed By: #### 2 [id number] #### [employer] [address] [place] [address] [id number] 09-14-2018 Hemoglobin A1c/Hemoglobin.total mass fraction (Bld) 6.9 % High 4.0-6.3 [facility] Comment on above: Performed By: #### 2 [id number] #### [employer] [address] [place] [address] Magnesiumon 09-14-2018 Magnesium mass conc 2.0 Int._Unit/L Normal 1.6-2.4 [facility] Comment on above: Performed By: #### 2 [id number] #### [employer] [facility] [place] [address] PTon 09-14-2018 INR Coag RelTime (PPP) 1.0 {INR} Normal 0.9-1.1 [facility] Comment on above: Result Comment: INR Recommended Therapeutic ranges: Prophylaxis/treatment of DVT and PE..........2.0-3.0 Prevention of systemic embolism.................2.0-3.0 Mechanical prosthetic values........................2.5-3.5 CRITICAL VALUE.........................................> 4.0 NOTE: New methodology started 05/16/2018 Performed By: #### 2 [id number] #### [facility] [facility] [place] [address] Prothrombin time (PT) Coag time (PPP) 11.8 second(s) Normal 9.7-12.7 [facility] Comment on above: Result Comment: NOTE : New reference range established on 05/16/2018 due to change in methodology. Performed By: #### 2 [id number] #### [employer] [address] [place] [address] PTTon 09-14-2018 aPTT Coag time (Bld) 32 second(s) Normal 28-38 [facility] Comment on above: Result Comment: NOTE :New reference range established 05/16/2018 due to change in methodology. Performed By: #### 2 [id number] #### [facility] [facility] [place] [address] TSHon 09-14-2018 Thyrotropin Qn 5.25 mcIU/mL Normal 0.30-5.60 [facility] Comment on above: Performed By: #### 2 [id number] #### [employer] [address] [place] [address] Troponin-Ion 09-14-2018 Troponin I.cardiac mass conc 0.02 ng/mL Normal 0.00-0.03 [facility] Comment on above: Performed By: #### 2 [id number] #### [employer] [address] [place] [address] UA Completeon 09-14-2018 Color Nom (U) Straw Normal Yellow [facility] Comment on above: Performed By: #### 2 [id number] #### [employer] [address] [place] [address] Glucose mass conc (U) Negative Normal Negative [facility] Comment on above: Performed By: #### 2 [id number] #### [employer] [address] [place] [address] Ketones Ql (U) Negative Normal Negative [facility] Comment on above: Performed By: #### 2 [id number] #### [facility] [facility] [place] [address] UA Blood Negative Normal Negative [facility] Comment on above: Performed By: #### 2 [id number] #### [employer] [address] [place] [address] UA Clarity Clear Normal Clear [facility] Comment on above: Performed By: #### 2 [id number] #### [employer] [address] [place] [id number] UA Hyal Cast 3-5 Abnormal 0-2 [facility] Comment on above: Performed By: #### 2 [id number] #### [employer] [address] [place] [id number] UA Leuk Est Negative Normal Negative [facility] Comment on above: Performed By: #### 2 [id number] #### [employer] [address] [place] [address] UA Mucous Trace Abnormal Trace [facility] Comment on above: Performed By: #### 2 [id number] #### [employer] [address] [place] [address] UA Nitrite Negative Normal Negative [facility] Comment on above: Performed By: #### 2 [id number] #### [employer] [facility] [address] [place] [id number] UA pH 5.0 Normal 4.6-8.0 [facility] Comment on above: Performed By: #### 2 [id number] #### [employer] [facility] [address] [place] [address] UA Protein Negative Normal Negative [facility] Comment on above: Performed By: #### 2 [id number] #### [employer] [facility] [address] [place] [id number] UA Spec Grav 1.009 Normal 1.003-1.03 0 [facility] Comment on above: Performed By: #### 2 [id number] #### [employer] [facility] [address] [place] [address] UA Urobilinogen Negative Normal [facility] Comment on above: Result Comment: Due to a manufacturing issue, low positive urobilinogen results may be fasely positive. Correlate with urine bilirubin and additional clinical/laboratory findings to assess the risk of hemolytic anemia or liver disease. If clinically indicated, repeat testing with an alternate method is available by contacting the laboratory within 24 hours. Performed By: #### 2 [id number] #### [facility] [place] [id number] Urobilinogen Qn (U) Negative Normal Negative [facility] Comment on above: Performed By: #### 2 [id number] #### [facility] [facility] [place] [address] XR Chest AP Portableon 09-14 XR Chest AP Portable Exam Date/Time: 09/14/2018 15:43 EDT Reason for Exam: Chest pain Report STUDY: XR Chest AP Portable; 09/14/2018 3:43 pm INDICATION: Chest pain. COMPARISON: 12/25/2016 ACCESSION NUMBER(S): [id number] ORDERING CLINICIAN: Kirsty Nguyen FINDINGS: CARDIOMEDIASTINAL SILHOUETTE: [...] pm Signed by: Iva Vargas MD Technologist: [facility] XR Humerus Lefton 09-14-2018 XR Humerus Left Exam Date/Time: 09/14/2018 15:43 EDT Reason for Exam: Pain, Traumatic Report STUDY: XR Humerus Left; XR Shoulder Complete Left;; 09/14/2018 3:43 pm INDICATION: Pain, Traumatic. COMPARISON: None. ACCESSION NUMBER(S): [id number]; [id number] ORDERING CLINICIAN: Kirsty Nguyen FINDINGS: Five views [...] pm Signed by: Iva Vargas MD Technologist: [facility] XR Knee Complete Righton XR Knee Complete Right Exam Date/Time: 09/14/2018 15:43 EDT Reason for Exam: Pain, Traumatic Report STUDY: XR Knee Complete Right;; 09/14/2018 3:43 pm INDICATION: Pain, Traumatic. COMPARISON: None. ACCESSION NUMBER(S): [id number] ORDERING CLINICIAN: Kirsty Nguyen FINDINGS: Four views right knee: There is no fracture, dislocation or joint effusion. There is swelling anterior to the patella and infrapatellar tendon. IMPRESSION: No acute bony abnormality right knee, soft tissue swelling. FINAL REPORT Dictated: 09/14/2018 4:19 pm Iva Vargas MD Signed (Electronic Signature): 09/14/2018 4:19 pm Signed by: Iva Vargas MD Technologist: [facility] XR Shoulder Complete Lefton 09-14-2018 XR Shoulder Complete Left Exam Date/Time: 09/14/2018 15:43 EDT Reason for Exam: Pain, Traumatic Report STUDY: XR Humerus Left; XR Shoulder Complete Left;; 09/14/2018 3:43 pm INDICATION: Pain, Traumatic. COMPARISON: None. ACCESSION NUMBER(S): [id number]; [id number] ORDERING CLINICIAN: Kirsty Nguyen FINDINGS: Five views [...] pm Signed by: Iva Vargas MD Technologist: [facility] eGFRon 09-14-2018 GFR/1.73 sq M predicted among non-blacks MDRD vol rate/area (S/P/Bld) mL/min/{1.73_m2} [facility] Comment on above: Order Comment: Order added by Discern Expert. Performed By: #### 1 [id number] #### [employer] [address] [place] [address] Vital Signs Date Time Vital Sign Value Performing Clinician Facility 12-02-2024 14:08-0400 Body temperature 98.8 [degF] Dr. Marycarmen Rodriguez DO Work Phone: [facility] 12-02-2024 14:08-0400 Diastolic blood pressure 72 mm[Hg] Dr. Marycarmen Rodriguez DO Work Phone: [facility] 12-02-2024 14:08-0400 Heart rate 78 /min Dr. Marycarmen Rodriguez DO Work Phone: [facility] 12-02-2024 14:08-0400 Respiratory rate 18 /min Dr. Marycarmen Rodriguez DO Work Phone: [facility] 12-02-2024 14:08-0400 SaO2% (BldA) [Mass fraction] 98 % Dr. Marycarmen Rodriguez DO Work Phone: [facility] 12-02-2024 14:08-0400 Systolic blood pressure 150 mm[Hg] Dr. Marycarmen Rodriguez DO Work Phone: [facility] 12-02-2024 14:01-0400 Inhaled oxygen flow rate 3 L/min Dr. Marycarmen Rodriguez DO Work Phone: [facility] 12-02-2024 08:32-0400 Body height 175.[address] Marycarmen Rodriguez DO Work Phone: [facility] 12-02-2024 08:32-0400 Body weight 109.[address] Marycarmen Rodriguez DO Work Phone: [facility] 12-02-2024 05:30-0400 Body mass index (BMI) [Ratio] 35.6 kg/m2 Dr. Marycarmen Rodriguez DO Work Phone: [facility] 11-30-2024 15:45-0400 Diastolic blood pressure 70 mm[Hg] Dr. Marycarmen Rodriguez DO Work Phone: [facility] 11-30-2024 15:45-0400 Systolic blood pressure 146 mm[Hg] Dr. Marycarmen Rodriguez DO Work Phone: [facility] 11-28-2024 09:15-0400 SaO2% (BldA) [Mass fraction] 94 % Dr. Marycarmen Rodriguez DO Work Phone: [facility] 11-28-2024 09:10-0400 Body temperature 97.5 [degF] Dr. Marycarmen Rodriguez DO Work Phone: [facility] 11-28-2024 09:10-0400 Diastolic blood pressure 64 mm[Hg] Dr. Marycarmen Rodriguez DO Work Phone: [facility] 11-28-2024 09:10-0400 Heart rate 86 /min Dr. Marycarmen Rodriguez DO Work Phone: [facility] 11-28-2024 09:10-0400 Respiratory rate 18 /min Dr. Marycarmen Rodriguez DO Work Phone: [facility] 11-28-2024 09:10-0400 Systolic blood pressure 129 mm[Hg] Dr. Marycarmen Rodriguez DO Work Phone: [facility] 11-28-2024 05:13-0400 Body mass index (BMI) [Ratio] 35.2 kg/m2 Dr. Marycarmen Rodriguez DO Work Phone: [facility] 11-28-2024 05:13-0400 Body weight 108.[address] Marycarmen Rodriguez DO Work Phone: [facility] 11-27-2024 15:54-0400 Body height 175.[address] Marycarmen Rodriguez DO Work Phone: [facility] 11-27-2024 15:54-0400 Body mass index (BMI) [Ratio] 35.4 kg/m2 Dr. Marycarmen Rodriguez DO Work Phone: [facility] 11-27-2024 15:54-0400 Body weight 108.[address] Marycarmen Rodriguez DO Work Phone: [facility] 11-27-2024 13:45-0400 Diastolic blood pressure 68 mm[Hg] Dr. Marycarmen Rodriguez DO Work Phone: [facility] 11-27-2024 13:45-0400 Heart rate 75 /min Dr. Marycarmen Rodriguez DO Work Phone: [facility] 11-27-2024 13:45-0400 Respiratory rate 21 /min Dr. Marycarmen Rodriguez DO Work Phone: [facility] 11-27-2024 13:45-0400 SaO2% (BldA) [Mass fraction] 95 % Dr. Marycarmen Rodriguez DO Work Phone: [facility] 11-27-2024 13:45-0400 Systolic blood pressure 115 mm[Hg] Dr. Marycarmen Rodriguez DO Work Phone: [facility] 11-26-2024 21:38-0400 Body temperature 98.1 [degF] Dr. Marycarmen Rodriguez DO Work Phone: [facility] 11-26-2024 21:38-0400 Diastolic blood pressure 68 mm[Hg] Dr. Marycarmen Rodriguez DO Work Phone: [facility] 11-26-2024 21:38-0400 Heart rate 68 /min Dr. Marycarmen Rodriguez DO Work Phone: [facility] 11-26-2024 21:38-0400 Respiratory rate 18 /min Dr. Marycarmen Rodriguez DO Work Phone: [facility] 11-26-2024 21:38-0400 SaO2% (BldA) [Mass fraction] 98 % Dr. Marycarmen Rodriguez DO Work Phone: [facility] 11-26-2024 21:38-0400 Systolic blood pressure 132 mm[Hg] Dr. Marycarmen Rodriguez DO Work Phone: [facility] 11-26-2024 18:03-0400 Inhaled oxygen flow rate 2 L/min Dr. Marycarmen Rodriguez DO Work Phone: [facility] 11-26-2024 17:37-0400 Body height 175.[address] Marycarmen Rodriguez DO Work Phone: [facility] 11-26-2024 17:37-0400 Body mass index (BMI) [Ratio] 37.3 kg/m2 Dr. Marycarmen Rodriguez DO Work Phone: [facility] 11-26-2024 17:37-0400 Body weight 114.[address] Marycarmen Rodriguez DO Work Phone: [facility] 11-22-2024 10:41-0400 Body mass index (BMI) [Ratio] 35.9 kg/m2 Dr. Marycarmen Rodriguez DO Work Phone: [facility] 11-22-2024 10:41-0400 Body weight 110.[address] Marycarmen Rodriguez DO Work Phone: [facility] 11-22-2024 10:41-0400 Diastolic blood pressure 62 mm[Hg] Dr. Marycarmen Rodriguez DO Work Phone: [facility] 11-22-2024 10:41-0400 Heart rate 66 /min Dr. Marycarmen Rodriguez DO Work Phone: [facility] 11-22-2024 10:41-0400 Respiratory rate 20 /min Dr. Marycarmen Rodriguez DO Work Phone: [facility] 11-22-2024 10:41-0400 Systolic blood pressure 107 mm[Hg] Dr. Marycarmen Rodriguez DO Work Phone: [facility] 10-31-2024 07:44-0400 Body mass index (BMI) [Ratio] 35.4 kg/m2 Dr. Marycarmen Rodriguez DO Work Phone: [facility] 10-31-2024 07:44-0400 Body temperature 97.1 [degF] Dr. Marycarmen Rodriguez DO Work Phone: [facility] 10-31-2024 07:44-0400 Body weight 108.[address] Marycarmen Rodriguez DO Work Phone: [facility] 10-31-2024 07:44-0400 Diastolic blood pressure 75 mm[Hg] Dr. Marycarmen Rodriguez DO Work Phone: [facility] 10-31-2024 07:44-0400 Heart rate 64 /min Dr. Marycarmen Rodriguez DO Work Phone: [facility] 10-31-2024 07:44-0400 Respiratory rate 20 /min Dr. Marycarmen Rodriguez DO Work Phone: [facility] 10-31-2024 07:44-0400 SaO2% (BldA) [Mass fraction] 97 % Dr. Marycarmen Rodriguez DO Work Phone: [facility] 10-31-2024 07:44-0400 Systolic blood pressure 135 mm[Hg] Dr. Marycarmen Rodriguez DO Work Phone: [facility] 10-25-2024 08:10-0400 Body height 175.[address] Marycarmen Rodriguez DO Work Phone: [facility] 10-25-2024 08:10-0400 Body mass index (BMI) [Ratio] 35.9 kg/m2 Dr. Marycarmen Rodriguez DO Work Phone: [facility] 10-25-2024 08:10-0400 Body weight 110.[address] Marycarmen Rodriguez DO Work Phone: [facility] 10-25-2024 08:10-0400 Diastolic blood pressure 85 mm[Hg] Dr. Marycarmen Rodriguez DO Work Phone: [facility] 10-25-2024 08:10-0400 Heart rate 85 /min Dr. Marycarmen Rodriguez DO Work Phone: [facility] 10-25-2024 08:10-0400 Respiratory rate 18 /min Dr. Marycarmen Rodriguez DO Work Phone: [facility] 10-25-2024 08:10-0400 Systolic blood pressure 121 mm[Hg] Dr. Marycarmen Rodriguez DO Work Phone: [facility] 09-20-2024 09:15-0400 Body height 175.[address] Marycarmen Rodriguez DO Work Phone: [facility] 09-20-2024 09:15-0400 Body mass index (BMI) [Ratio] 35.6 kg/m2 Dr. Marycarmen Rodriguez DO Work Phone: [facility] 09-20-2024 09:15-0400 Body temperature 96.8 [degF] Dr. Marycarmen Rodriguez DO Work Phone: [facility] 09-20-2024 09:15-0400 Body weight 109.[address] Marycarmen Rodriguez DO Work Phone: [facility] 09-20-2024 09:15-0400 Diastolic blood pressure 77 mm[Hg] Dr. Marycarmen Rodriguez DO Work Phone: [facility] 09-20-2024 09:15-0400 Heart rate 66 /min Dr. Marycarmen Rodriguez DO Work Phone: [facility] 09-20-2024 09:15-0400 Respiratory rate 18 /min Dr. Marycarmen Rodriguez DO Work Phone: [facility] 09-20-2024 09:15-0400 SaO2% (BldA) [Mass fraction] 97 % Dr. Marycarmen Rodriguez DO Work Phone: [facility] 09-20-2024 09:15-0400 Systolic blood pressure 121 mm[Hg] Dr. Marycarmen Rodriguez DO Work Phone: [facility] 07-18-2024 06:00-0400 Body height 175.[address] Marycarmen Rodriguez DO Work Phone: [facility] 07-18-2024 06:00-0400 Body weight 104.[address] Marycarmen Rodriguez DO Work Phone: [facility] 07-18-2024 06:00-0400 Heart rate 69 /min Dr. Marycarmen Rodriguez DO Work Phone: [facility] 07-18-2024 06:00-0400 SaO2% (BldA) [Mass fraction] 97 % Dr. Marycarmen Rodriguez DO Work Phone: [facility] 07-03-2024 08:35-0500 Body mass index (BMI) [Ratio] 36.6 kg/m2 Dr. Marycarmen Rodriguez DO Work Phone: [facility] 07-03-2024 08:35-0500 Body temperature 97.5 [degF] Dr. Marycarmen Rodriguez DO Work Phone: [facility] 07-03-2024 08:35-0500 Body weight 109.[address] Marycarmen Rodriguez DO Work Phone: [facility] 07-03-2024 08:35-0500 Diastolic blood pressure 77 mm[Hg] Dr. Marycarmen Rodriguez DO Work Phone: [facility] 07-03-2024 08:35-0500 Heart rate 72 /min Dr. Marycarmen Rodriguez DO Work Phone: [facility] 07-03-2024 08:35-0500 Respiratory rate 20 /min Dr. Marycarmen Rodriguez DO Work Phone: [facility] 07-03-2024 08:35-0500 SaO2% (BldA) [Mass fraction] 96 % Dr. Marycarmen Rodriguez DO Work Phone: [facility] 07-03-2024 08:35-0500 Systolic blood pressure 116 mm[Hg] Dr. Marycarmen Rodriguez DO Work Phone: [facility] 04-17-2024 15:55-0500 Body height [address] Marycarmen Rodriguez DO Work Phone: [facility] 04-17-2024 15:55-0500 Body mass index (BMI) [Ratio] 36.9 kg/m2 Dr. Marycarmen Rodriguez DO Work Phone: [facility] 04-17-2024 15:55-0500 Body weight 110.[address] Marycarmen Rodriguez DO Work Phone: [facility] 04-17-2024 15:55-0500 Diastolic blood pressure 53 mm[Hg] Dr. Marycarmen Rodriguez DO Work Phone: [facility] 04-17-2024 15:55-0500 Heart rate 70 /min Dr. Marycarmen Rodriguez DO Work Phone: [facility] 04-17-2024 15:55-0500 Respiratory rate 18 /min Dr. Marycarmen Rodriguez DO Work Phone: [facility] 04-17-2024 15:55-0500 SaO2% (BldA) [Mass fraction] 94 % Dr. Marycarmen Rodriguez DO Work Phone: [facility] 04-17-2024 15:55-0500 Systolic blood pressure 91 mm[Hg] Dr. Marycarmen Rodriguez DO Work Phone: [facility] 03-27-2024 10:17-0500 Diastolic blood pressure 79 mm[Hg] Dr. Marycarmen Rodriguez DO Work Phone: [facility] 03-27-2024 10:17-0500 Heart rate 67 /min Dr. Marycarmen Rodriguez DO Work Phone: [facility] 03-27-2024 10:17-0500 Respiratory rate 18 /min Dr. Marycarmen Rodriguez DO Work Phone: [facility] 03-27-2024 10:17-0500 Systolic blood pressure 134 mm[Hg] Dr. Marycarmen Rodriguez DO Work Phone: [facility] 03-20-2024 08:28-0500 Body mass index (BMI) [Ratio] 37.5 kg/m2 Dr. Marycarmen Rodriguez DO Work Phone: [facility] 03-20-2024 08:28-0500 Body weight 112.[address] Marycarmen Rodriguez DO Work Phone: [facility] 03-20-2024 08:28-0500 Diastolic blood pressure 89 mm[Hg] Dr. Marycarmen Rodriguez DO Work Phone: [facility] 03-20-2024 08:28-0500 Heart rate 61 /min Dr. Marycarmen Rodriguez DO Work Phone: [facility] 03-20-2024 08:28-0500 Respiratory rate 18 /min Dr. Marycarmen Rodriguez DO Work Phone: [facility] [facility]24 08:28-0500 Systolic blood pressure 141 mm[Hg] Dr. Marycarmen Rodriguez DO Work Phone: [facility] 12-21-2022 07:51-0400 Body height 172.[address] Marycarmen Rodriguez Work Phone: [facility] 12-21-2022 07:51-0400 Body weight 85.[address] Marycarmen Rodriguez Work Phone: [facility] 12-18-2022 08:27-0400 Body mass index (BMI) [Ratio] 28.7 kg/m2 Dr. Marycarmen Rodriguez Work Phone: [facility] 12-15-2022 13:03-0400 Body mass index (BMI) [Ratio] 28.7 kg/m2 Dr. Marycarmen Rodriguez Work Phone: [facility] 12-15-2022 13:03-0400 Body weight 85.[address] Marycarmen Rodriguez Work Phone: [facility] 12-15-2022 13:03-0400 Diastolic blood pressure 92 mm[Hg] Dr. Marycarmen Rodriguez Work Phone: [facility] 12-15-2022 13:03-0400 Heart rate 72 /min Dr. Marycarmen Rodriguez Work Phone: [facility] 12-15-2022 13:03-0400 Respiratory rate 16 /min Dr. Marycarmen Rodriguez Work Phone: [facility] 12-15-2022 13:03-0400 Systolic blood pressure 156 mm[Hg] Dr. Marycarmen Rodriguez Work Phone: [facility] 10-13-2022 10:59-0400 Body height 172.72 cm [facility] 10-13-2022 10:59-0400 Body mass index (BMI) [Ratio] 25.4 kg/m2 [facility] 10-13-2022 10:59-0400 Body weight 75.74 kg [facility] 10-13-2022 10:59-0400 Diastolic blood pressure 75 mm[Hg] [facility] 10-13-2022 10:59-0400 Heart rate 65 /min [facility] 10-13-2022 10:59-0400 Respiratory rate 18 /min [facility] 10-13-2022 10:59-0400 SaO2% (BldA) [Mass fraction] 94 % [facility] 10-13-2022 10:59-0400 Systolic blood pressure 143 mm[Hg] [facility] 09-21-2022 15:30-0400 Body mass index (BMI) [Ratio] 34.7 kg/m2 [facility] 09-21-2022 15:27-0400 Body temperature 98 [degF] [facility] 09-21-2022 15:27-0400 Diastolic blood pressure 84 mm[Hg] [facility] 09-21-2022 15:27-0400 Heart rate 79 /min [facility] 09-21-2022 15:27-0400 Respiratory rate 17 /min Marycarmen Jennifer O[facility] 09-21-2022 15:27-0400 SaO2% (BldA) [Mass fraction] 96 % Marycarmen [facility] 09-21-2022 15:27-0400 Systolic blood pressure 143 mm[Hg] Marycarmen Jennifer [facility] 09-21-2022 06:25-0400 Body weight 103.6 kg Maryacrmen Jennifer [facility] 09-19-2022 01:30-0400 Inhaled oxygen concentration 21 % Marycarmen Jennifer [facility] 09-01-2022 09:59-0400 Diastolic blood pressure 68 mm[Hg] Marycarmen Jennifer [facility] 09-01-2022 09:59-0400 Heart rate 49 /min Marycarmen Jennifer [facility] 09-01-2022 09:59-0400 Systolic blood pressure 127 mm[Hg] Marycarmen [facility] 09-01-2022 09:57-0400 Body temperature 97.9 [degF] Marycarmen [facility] 09-01-2022 09:57-0400 Respiratory rate 18 /min Marycarmen Jennifer [facility] 09-01-2022 09:57-0400 SaO2% (BldA) [Mass fraction] 93 % Marycarmen [facility] 09-01-2022 04:08-0400 Body mass index (BMI) [Ratio] 35.2 kg/m2 Marycarmen Jennifer [facility] 09-01-2022 04:08-0400 Body weight 108.2 kg Marycarmen Jennifer [facility] 08-31-2022 11:42-0400 Body height 175.26 cm Marycarmen Jennifer [facility] 08-19-2022 10:01-0400 Body height 175.26 cm Marycarmen Jennifer [facility] 08-19-2022 10:01-0400 Body mass index (BMI) [Ratio] 35.4 kg/m2 Marycarmen Jennifer [facility] 08-19-2022 10:01-0400 Body weight 109.03 kg Marycarmen Rodriguez [facility] 08-19-2022 10:01-0400 Diastolic blood pressure 79 mm[Hg] Marycarmen Jennifer [facility] 08-19-2022 10:01-0400 Heart rate 62 /min Marycarmen Jenniferdiogenes SWAIN [facility] 08-19-2022 10:01-0400 Respiratory rate 18 /min Marycarmen SWAIN [facility] 08-19-2022 10:01-0400 Systolic blood pressure 144 mm[Hg] Marycarmen Rodriguez [facility] 04-16-2022 12:43-0500 Body height 175.[address] Marycarmen Rodriguez Work Phone: [facility] 04-16-2022 12:43-0500 Body mass index (BMI) [Ratio] 35.2 kg/m2 Dr. Marycarmen Rodriguez Work Phone: [facility] 04-16-2022 12:43-0500 Body temperature 97 [degF] Dr. Marycarmen Rodriguez Work Phone: [facility] 04-16-2022 12:43-0500 Body weight 108.[address] Marycarmen Rodriguez Work Phone: [facility] 04-16-2022 12:43-0500 Diastolic blood pressure 78 mm[Hg] Dr. Marycarmen Rodriguez Work Phone: [facility] 04-16-2022 12:43-0500 Heart rate 66 /min Dr. Marycarmen Rodriguez Work Phone: [facility] 04-16-2022 12:43-0500 Respiratory rate 18 /min Dr. Marycarmen Rodriguez Work Phone: [facility] 04-16-2022 12:43-0500 SaO2% (BldA) [Mass fraction] 94 % Dr. Marycarmen Rodriguez Work Phone: [facility] 04-16-2022 12:43-0500 Systolic blood pressure 125 mm[Hg] Dr. Marycarmen Rodriguez Work Phone: [facility] 04-14-2022 10:27-0500 Body mass index (BMI) [Ratio] 35.2 kg/m2 Dr. Marycarmen Rodriguez Work Phone: [facility] 04-14-2022 10:27-0500 Body weight 108.[address] Marycarmen Rodriguez Work Phone: [facility] 04-14-2022 10:27-0500 Diastolic blood pressure 68 mm[Hg] Dr. Marycarmen Rodriguez Work Phone: [facility] 04-14-2022 10:27-0500 Heart rate 64 /min Dr. Marycarmen Rodriguez Work Phone: [facility] 04-14-2022 10:27-0500 Respiratory rate 18 /min Dr. Marycarmen Rodriguez Work Phone: [facility] 04-14-2022 10:27-0500 Systolic blood pressure 130 mm[Hg] Dr. Marycarmen Rodriguez Work Phone: [facility] 03-27-2022 13:25-0500 Body temperature 97.9 [degF] Dr. Marycarmen Rodriguez Work Phone: [facility] 03-27-2022 13:25-0500 Diastolic blood pressure 86 mm[Hg] Dr. Marycarmen Rodriguez Work Phone: [facility] 03-27-2022 13:25-0500 Heart rate 86 /min Dr. Marycarmen Rodriguez Work Phone: [facility] 03-27-2022 13:25-0500 Respiratory rate 14 /min Dr. Marycarmen Rodriguez Work Phone: [facility] 03-27-2022 13:25-0500 SaO2% (BldA) [Mass fraction] 96 % Dr. Marycarmen Rodriguez Work Phone: [facility] 03-27-2022 13:25-0500 Systolic blood pressure 134 mm[Hg] Dr. Marycarmen Rodriguez Work Phone: [facility] 01-07-2022 11:07-0400 Body mass index (BMI) [Ratio] 34.9 kg/m2 Dr. Marycarmen Rodriguez Work Phone: [facility] Work Phone: 01-07-2022 11:07-0400 Body temperature 97.4 [degF] Dr. Marycarmen Rodriguez Work Phone: [facility] Work Phone: 01-07-2022 11:07-0400 Body weight 107.[address] Marycarmen Rodriguez Work Phone: [facility] Work Phone: 01-07-2022 11:07-0400 Diastolic blood pressure 87 mm[Hg] Dr. Marycarmen Rodriguez Work Phone: [facility] Work Phone: 01-07-2022 11:07-0400 Heart rate 60 /min Dr. Marycarmen Rodriguez Work Phone: [facility] Work Phone: 01-07-2022 11:07-0400 Respiratory rate 16 /min Dr. Marycarmen Rodriguez Work Phone: [facility] Work Phone: 01-07-2022 11:07-0400 SaO2% (BldA) [Mass fraction] 96 % Dr. Marycarmen Rodriguez Work Phone: [facility] Work Phone: 01-07-2022 11:07-0400 Systolic blood pressure 155 mm[Hg] Dr. Marycarmen Rodriguez Work Phone: [facility] Work Phone: 11-21-2021 10:24-0400 Body height 175.[address] Marycarmen Rodriguez Work Phone: [facility] Work Phone: 11-21-2021 10:24-0400 Body mass index (BMI) [Ratio] 34.9 kg/m2 Dr. Marycarmen Rodriguez Work Phone: [facility] Work Phone: 11-21-2021 10:24-0400 Body weight 107.[address] Marycarmen Rodriguez Work Phone: [facility] Work Phone: 11-21-2021 10:24-0400 Diastolic blood pressure 77 mm[Hg] Dr. Marycarmen Rodriguez Work Phone: [facility] Work Phone: 11-21-2021 10:24-0400 Heart rate 61 /min Dr. Marycarmen Rodriguez Work Phone: [facility] Work Phone: 11-21-2021 10:24-0400 Respiratory rate 18 /min Dr. Marycarmen Rodriguez Work Phone: [facility] Work Phone: 11-21-2021 10:24-0400 SaO2% (BldA) [Mass fraction] 97 % Dr. Marycarmen Rodriguez Work Phone: [facility] Work Phone: 11-21-2021 10:24-0400 Systolic blood pressure 138 mm[Hg] Dr. Marycarmen Rodriguez Work Phone: [facility] Work Phone: 11-16-2021 16:49-0400 Diastolic blood pressure 87 mm[Hg] Dr. Marycarmen Rodriguez Work Phone: [facility] Work Phone: 11-16-2021 16:49-0400 Heart rate 53 /min Dr. Marycarmen Rodriguez Work Phone: [facility] Work Phone: 11-16-2021 16:49-0400 Respiratory rate 16 /min Dr. Marycarmen Rodriguez Work Phone: [facility] Work Phone: 11-16-2021 16:49-0400 SaO2% (BldA) [Mass fraction] 93 % Dr. Marycarmen Rodriguez Work Phone: [facility] Work Phone: 11-16-2021 16:49-0400 Systolic blood pressure 117 mm[Hg] Dr. Marycarmen Rodriguez Work Phone: [facility] Work Phone: 11-16-2021 12:55-0400 Body mass index (BMI) [Ratio] 33.2 kg/m2 Dr. Marycarmen Rodriguez Work Phone: [facility] Work Phone: 11-16-2021 12:55-0400 Body temperature 97.6 [degF] Dr. Marycarmen Rodriguez Work Phone: [facility] Work Phone: 11-16-2021 12:55-0400 Body weight 102.[address] Marycarmen Rodriguez Work Phone: [facility] Work Phone: 09-16-2021 10:37-0400 Body height 175.[address] Marycarmen Rodriguez Work Phone: [facility] Work Phone: 09-16-2021 10:37-0400 Body mass index (BMI) [Ratio] 35.7 kg/m2 Dr. Marycarmen Rodriguez Work Phone: [facility] Work Phone: 09-16-2021 10:37-0400 Body weight 109.[address] Marycarmen Rodriguez Work Phone: [facility] Work Phone: 09-16-2021 10:37-0400 Diastolic blood pressure 69 mm[Hg] Dr. Marycarmen Rodriguez Work Phone: [facility] Work Phone: 09-16-2021 10:37-0400 Heart rate 50 /min Dr. Marycarmen Rodriguez Work Phone: [facility] Work Phone: 09-16-2021 10:37-0400 Respiratory rate 18 /min Dr. Marycarmen Rodriguez Work Phone: [facility] Work Phone: 09-16-2021 10:37-0400 Systolic blood pressure 122 mm[Hg] Dr. Marycarmen Rodriguez Work Phone: [facility] Work Phone: 08-01-2021 10:02-0400 Body mass index (BMI) [Ratio] 35.7 kg/m2 Dr. Marycarmen Rodriguez Work Phone: [facility] Work Phone: 08-01-2021 10:02-0400 Body weight 109.[address] Marycarmen Rodriguez Work Phone: [facility] Work Phone: 08-01-2021 10:02-0400 Diastolic blood pressure 81 mm[Hg] Dr. Marycarmen Rodriguez Work Phone: [facility] Work Phone: 08-01-2021 10:02-0400 Heart rate 59 /min Dr. Marycarmen Rodriguez Work Phone: [facility] Work Phone: 08-01-2021 10:02-0400 Respiratory rate 18 /min Dr. Marycarmen Rodriguez Work Phone: [facility] Work Phone: 08-01-2021 10:02-0400 SaO2% (BldA) [Mass fraction] 97 % Dr. Marycarmen Rodriguez Work Phone: [facility] Work Phone: 08-01-2021 10:02-0400 Systolic blood pressure 133 mm[Hg] Dr. Marycarmen Rodriguez Work Phone: [facility] Work Phone: 08-01-2021 10:02-0400 Body height 175.[address] Marycarmen Rodriguez Work Phone: [facility] Work Phone: 08-01-2021 10:02-0400 Body mass index (BMI) [Ratio] 35.7 kg/m2 Dr. Marycarmen Rodriguez Work Phone: [facility] Work Phone: 08-01-2021 10:02-0400 Body weight 109.[address] Marycarmen Rodriguez Work Phone: [facility] Work Phone: 08-01-2021 10:02-0400 Diastolic blood pressure 81 mm[Hg] Dr. Marycarmen Rodriguez Work Phone: [facility] Work Phone: 08-01-2021 10:02-0400 Heart rate 59 /min Dr. Marycarmen Rodriguez Work Phone: [facility] Work Phone: 08-01-2021 10:02-0400 Respiratory rate 18 /min Dr. Marycarmen Rodriguez Work Phone: [facility] Work Phone: 08-01-2021 10:02-0400 SaO2% (BldA) [Mass fraction] 97 % Dr. Marycarmen Rodriguez Work Phone: [facility] Work Phone: 08-01-2021 10:02-0400 Systolic blood pressure 133 mm[Hg] Dr. Marycarmen Rodriguez Work Phone: [facility] Work Phone: 06-10-2021 18:38-0500 Diastolic blood pressure 75 mm[Hg] Dr. Marycarmen Rodriguez Work Phone: [facility] Work Phone: 06-10-2021 18:38-0500 Heart rate 57 /min Dr. Marycarmen Rodriguez Work Phone: [facility] Work Phone: 06-10-2021 18:38-0500 Respiratory rate 14 /min Dr. Marycarmen Rodriguez Work Phone: [facility] Work Phone: 06-10-2021 18:38-0500 SaO2% (BldA) [Mass fraction] 96 % Dr. Marycarmen Rodriguez Work Phone: [facility] Work Phone: 06-10-2021 18:38-0500 Systolic blood pressure 121 mm[Hg] Dr. Marycarmen Rodriguez Work Phone: [facility] Work Phone: 06-10-2021 13:36-0500 Body mass index (BMI) [Ratio] 34 kg/m2 Dr. Marycarmen Rodriguez Work Phone: [facility] Work Phone: 06-10-2021 13:36-0500 Body temperature 97 [degF] Dr. Marycarmen Rodriguez Work Phone: [facility] Work Phone: 06-10-2021 13:36-0500 Body weight 104.[address] Marycarmen Rodriguez Work Phone: [facility] Work Phone: 05-19-2021 16:55-0500 Respiratory rate 16 /min Dr. Marycarmen Rodriguez Work Phone: [facility] Work Phone: 05-19-2021 14:43-0500 Body temperature 96.5 [degF] Dr. Marycarmen Rodriguez Work Phone: [facility] Work Phone: 05-19-2021 14:43-0500 Diastolic blood pressure 94 mm[Hg] Dr. Marycarmen Rodriguez Work Phone: [facility] Work Phone: 05-19-2021 14:43-0500 Heart rate 63 /min Dr. Marycarmen Rodriguez Work Phone: [facility] Work Phone: 05-19-2021 14:43-0500 SaO2% (BldA) [Mass fraction] 99 % Dr. Marycarmen Rodriguez Work Phone: [facility] Work Phone: 05-19-2021 14:43-0500 Systolic blood pressure 172 mm[Hg] Dr. Marycarmen Rodriguez Work Phone: [facility] Work Phone: 05-19-2021 14:42-0500 Body mass index (BMI) [Ratio] 34 kg/m2 Dr. Marycarmen Rodriguez Work Phone: [facility] Work Phone: 05-19-2021 14:42-0500 Body weight 104.[address] Marycarmen Rodriguez Work Phone: [facility] Work Phone: 12-26-2020 10:29-0400 Diastolic blood pressure 76 mm[Hg] Eladio Ingram MD Work Phone: [facility] 12-26-2020 10:29-0400 Systolic blood pressure 141 mm[Hg] Eladio Ingram MD Work Phone: [facility] 12-26-2020 10:24-0400 Body height 175.3 cm Eladio Ingram MD Work Phone: [facility] 12-26-2020 10:24-0400 Body mass index (BMI) [Ratio] 33.67 kg/m2 Eladio Ingram MD Work Phone: [facility] 12-26-2020 10:24-0400 Body weight 103.42 kg Eladio Ingram MD Work Phone: [facility] 12-26-2020 10:24-0400 Heart rate 59 /min Eladio Ingram MD Work Phone: [facility] 12-26-2020 10:24-0400 SaO2% (BldA) [Mass fraction] 95 % Eladio Ingram MD Work Phone: [facility] 10-09-2020 10:53-0400 Diastolic blood pressure 72 mm[Hg] Fernanda Acuña DRUG ROOM CLERK Work Phone: [facility] 10-09-2020 10:53-0400 Systolic blood pressure 134 mm[Hg] Fernanda Acuña DRUG ROOM CLERK Work Phone: [facility] 10-09-2020 09:59-0400 Body mass index (BMI) [Ratio] 34.6 kg/m2 Fernanda Acuña DRUG ROOM CLERK Work Phone: [facility] 10-09-2020 09:59-0400 Body weight 106.28 kg Fernanda Acuña DRUG ROOM CLERK Work Phone: [facility] 10-09-2020 09:59-0400 Heart rate 58 /min Fernanda Acuña DRUG ROOM CLERK Work Phone: [facility] 10-09-2020 09:59-0400 Respiratory rate 16 /min Fernanda Acuña DRUG ROOM CLERK Work Phone: [facility] 10-09-2020 09:59-0400 SaO2% (BldA) [Mass fraction] 94 % Fernanda Acuña DRUG ROOM CLERK Work Phone: [facility] 12-17-2016 11:21-0400 BMI (Body Mass Index) 32.99 kg/m2 Eladio Ingram [facility] Work Phone: 12-17-2016 11:21-0400 BP Diastolic 82 mm[Hg] Eladio Ingram [facility] Work Phone: 12-17-2016 11:21-0400 BP Systolic 150 mm[Hg] Eladio Ingram [facility] Work Phone: 12-17-2016 [id number] Height 175.3 cm Eladio Ingram [facility] Work Phone: 12-17-2016 11:21-0400 Pulse (Heart Rate) 70 /min Eladio Ingram [facility] Work Phone: 12-17-2016 11:21-0400 Pulse Oximetry 97 % Eladio Ingram [facility] Work Phone: 12-17-2016 11:21-0400 Weight 101.33 kg Eladio Ingram [facility] Work Phone: Encounters Encounter Date Encounter Type Care Provider Facility Start: 12-02-2024 Dr. Nickie Danielson DO -[facility] Work Phone: Start: 12-01-2024 Dr. Marcin Araujo MD -[facility] Start: 11-30-2024 End: 12-02-2024 Evaluation and management of inpatient Dr. Marycarmen Rodriguez DO Work Phone: -Intensive Care Unit Start: 11-30-2024 ambulatory Jose Hay Facility:[facility] Start: 11-30-2024 End: 12-02-2024 Dr. Abraham Ridley DO -Intensive Care Unit Work Phone: Start: 11-27-2024 Dr. Jose Hay MD -[facility] Start: 11-27-[address] Marycarmen vera DO Work Phone: -[facility] Start: 11-27-2024 End: 11-28-2024 ambulatory Marycarmen Rodriguez Facility:[facility] Start: 11-27-2024 End: 11-28-2024 observation encounter [...] Dr. Marycarmen Rodriguez DO Work Phone: -Radiology [facility] Start: 11-22-2024 End: 11-22-2024 Gustabo Pérez [employer]ENCY [employer] -Radiology [facility] Work Phone: Start: 11-22-2024 End: 11-22-2024 Gustabo Pérez E[employer]ICIENCY [employer]ER-[employer] -[facility] Work Phone: Start: 11-22-2024 End: 11-22-[address] Marycarmen Rodriguez DO Work Phone: -[facility] Start: 11-22-2024 End: 11-22-2024 ambulatory Marycarmen Rodriguez Facility:[facility] Start: 11-20-2024 End: 11-20-[address] Marycarmen Rodriguez DO Work Phone: -Radiology [facility] Start: 11-20-2024 End: 11-20-2024 Dr. Brooks Carpenter MD -Radiology [facility] Work Phone: Start: 11-20-2024 End: 11-20-2024 ambulatory Marycarmen Rodriguez Facility:[facility] Start: 11-13-2024 ambulatory Gustabo Pérez NP Facility :[facility] Start: 11-13-2024 Non-patient / Non-visit Dr. Jose colon MD -[facility] Start: 11-13-2024 Dr. Jose Hay MD -[facility] Start: 11-10-2024 End: 11-10-[address] Marycarmen Rodriguez DO Work Phone: -Sleep Lab Start: 11-10-2024 End: 11-10-2024 Patient encounter procedure EFFICIENCY MINER Maren Olivas -Sleep Lab Work Phone: Start: 11-10-2024 End: 11-10-2024 EFFICIENCY MINER Maren Olivas -Sleep Lab Work Phone: Start: 11-10-2024 ambulatory Marycarmen Rodriguez Facility: [facility] Start: 11-10-2024 Non-patient / Non-visit Dr. Lance pereira MD -[facility] Work Phone: Start: 11-10-2024 Dr. Lance Rodriguez MD -[facility] Work Phone: Start: 11-10-2024 End: 11-10-[address] Marycarmen Rodriguez DO Work Phone: -Cardiovascular Services Start: 11-10-2024 End: 11-10-2024 Patient encounter procedure Gustabo Pérez [employer] -Cardiovascular Services Work Phone: Start: 11-10-2024 End: 11-10-2024 Gustabo Pérez [employer]IENCY [employer] -Cardiovascular Services Work Phone: Start: 11-09-2024 End: 11-10-[address] Marycarmen Rodriguez DO Work Phone: -Laboratory Ritesh Calvillo [facility] Start: 11-09-2024 End: 11-09-[address] Marycarmen Rodriguez DO -Laboratory Ritesh Calvillo [facility] Start: 11-09-2024 End: 11-09-2024 Dr. Marycarmen Rodriguez DO -Laboratory Ritesh Calvillo [facility] Start: 11-09-2024 End: 11-09-2024 ambulatory Marycarmen Rodriguez Facility:[facility] Start: 10-31-2024 End: 10-31-2024 Patient encounter procedure EFFICIENCY MINER Maren Olivas -[facility] Work Phone: Start: 10-31-2024 End: 10-31-2024 EFFICIENCY MINER Maren Olivas -[facility] Work Phone: Start: 10-31-2024 End: 10-31-[address] Marycarmen Rodriguez DO Work Phone: -[facility] Start: 10-26-2024 End: 10-26-[address] Marycarmen Rodriguez DO Work Phone: -Sleep Lab Start: 10-26-2024 End: 10-26-2024 Patient encounter procedure Marni Horn [employer] -Sleep Lab Work Phone: Start: 10-26-2024 End: 10-26-2024 Marni Horn [employer]ENCY [employer] -Sleep Lab Work Phone: Start: 10-25-2024 End: 10-25-2024 Patient encounter procedure Gustabo Pérez [employer]Y [employer] -[facility] Work Phone: Start: 10-25-2024 End: 10-25-2024 Gustabo Pérez E[employer]IENCY [employer] -[facility] Work Phone: Start: 10-25-2024 End: 10-26-[address] Marycarmen Rodriguez DO Work Phone: [facility] Work Phone: Start: 10-18-2024 End: 10-18-[address] Marycarmen Rodriguez DO Work Phone: [facility] Work Phone: Start: 10-18-2024 End: 10-18-2024 Patient encounter procedure Marni Horn NP-C -Sleep Lab Work Phone: Start: 10-18-2024 End: 10-18-2024 Marni Horn [employer]ENCY [employer] -Sleep Lab Work Phone: Start: 10-18-2024 End: 10-18-[address] Marycarmen Rodriguez DO Work Phone: [facility] Work Phone: Start: 10-18-2024 End: 10-18-[address] Brooks Carpenter MD -Laboratory Work Phone: Start: 10-18-2024 End: 10-18-2024 Dr. Brooks Carpenter MD -Laboratory Work Phone: Start: 10-18-2024 End: 10-18-2024 ambulatory Marycarmen Rodriguez Facility:[facility] Start: 09-29-2024 End: 09-29-[address] Marycarmen Rodriguez DO Work Phone: [facility] Work Phone: Start: 09-29-2024 End: 09-29-[address] Marycarmen Rodriguez DO -Laboratory [place] Work Phone: Start: 09-29-2024 End: 09-29-2024 Dr. Marycarmen Rodriguez DO -[facility] [place] Work Phone: Start: 09-29-2024 End: 09-29-2024 ambulatory Marycarmen Rodriguez Facility:[facility] Start: 09-22-2024 End: 09-22-[address] Marycarmen Rodriguez DO Work Phone: [facility] Work Phone: Start: 09-22-2024 End: 09-22-2024 Patient encounter procedure Marni Horn [employer] -Sleep Lab Work Phone: Start: 09-22-2024 End: 09-22-2024 Marni Horn [employer]ENCY [employer] -Sleep Lab Work Phone: Start: 09-22-2024 End: 09-22-2024 ambulatory Marni Horn NP Facility:[facility] Start: 09-20-2024 End: 09-20-[address] Marycarmen Rodriguez DO Work Phone: [facility] Work Phone: Start: 09-20-2024 End: 09-20-2024 Patient encounter procedure EFFICIENCY [employer]ER Maren Olivas -Laboratory Work Phone: Start: 09-20-2024 End: 09-20-2024 EFFICIENCY MINER Maren Olivas -Laboratory Work Phone: Start: 09-20-2024 End: 09-20-2024 Patient encounter procedure ELIAZAR Olivas -[facility] Work Phone: Start: 09-20-2024 End: 09-20-2024 EFFICIENCY MINER Maren Olivas [facility] Work Phone: Start: 09-20-2024 End: 09-20-[address] Marycarmen Rodriguez DO Work Phone: [facility] Work Phone: Start: 09-20-2024 End: 09-20-2024 ambulatory Maren Olivas Facility:[facility] Start: 08-03-2024 End: 08-03-[address] Marycarmen Rodriguez DO Work Phone: [facility] [facility] Work Phone: Start: 08-03-2024 End: 08-03-2024 Patient encounter procedure Marni Horn EFFICIENCY MINER-C -Sleep Lab Work Phone: Start: 08-03-2024 End: 08-03-2024 Marni Horn EFFICIENCY MINER-C -Sleep Lab Work Phone: Start: 08-03-2024 End: 08-03-2024 ambulatory Marycarmen Rodriguez Facility:[facility] Start: 07-18-2024 ambulatory Marycarmen Rodriguez Facility: [facility] Start: 07-18-2024 Non-patient / Non-visit Dr. Zen Olguin own DO -[facility] Start: 07-18-2024 End: 07-18-[address] Marycarmen Rodriguez DO Work Phone: [facility] Work Phone: Start: 07-18-2024 End: 07-18-2024 Patient encounter procedure Marni Horn EFFICIENCY MINER-C -Pulmonary Services/Neurology Work Phone: Start: 07-17-2024 Non-patient / Non-visit Dr. Zen Olguin own DO -[facility] Start: 07-17-2024 End: 07-18-[address] Marycarmen Rodriguez DO Work Phone: [facility] Work Phone: Start: 07-17-2024 End: 07-17-2024 Patient encounter procedure Marni Horn NP-C -Sleep Lab Work Phone: Start: 07-17-2024 End: 07-17-2024 ambulatory Marycarmen Rodriguez Facility:[facility] Start: 07-07-2024 End: 07-07-[address] Marycarmen Rodriguez DO Work Phone: [facility] Work Phone: Start: 07-07-2024 End: 07-07-2024 Patient encounter procedure Marni Horn NP-C -Sleep Lab Work Phone: Start: 07-07-2024 End: 07-07-2024 ambulatory Marycarmen Jennifer Facility:[facility] Start: 07-03-2024 End: 07-03-2024 Patient encounter procedure Marni Horn NP-C -[facility] Work Phone: Start: 07-03-2024 End: 07-03-2024 ambulatory Marycarmen Rodriguez Facility:[facility] Start: 06-30-2024 End: 06-30-[address] Marycarmen Rodriguez DO Work Phone: [facility] Work Phone: Start: 06-30-2024 End: 06-30-[address] Marycarmen Rodriguez DO -Laboratory, [facility] Start: 06-30-2024 End: 06-30-2024 ambulatory Marycarmen Rodriguez Facility:[facility] Start: 04-17-2024 End: 04-17-2024 Patient encounter procedure Gustabo Pérez EFFICIENCY MINER-C -[facility] Work Phone: Start: 04-17-2024 End: 04-17-2024 ambulatory Gustabo Pérez NP Facility:[facility] Start: 04-17-2024 End: 04-17-2024 ambulatory Gustabo Pérez NP Facility:[facility] Start: 03-27-2024 End: 03-27-[address] Jose Hay MD -[facility] Work Phone: Start: 03-27-2024 End: 03-27-[facility] Start: 03-23-2024 End: 03-23-[address] Marycarmen Rodriguez [facility] -[facility] Start: 03-23-2024 End: 03-23-2024 ambulatory Marycarmen Rodriguez Facility:[facility] Start: 03-20-2024 End: 03-20-[address] Jose Hay MD -[facility] Work Phone: Start: 03-20-2024 End: 03-20-2024 ambulatory [facility] Facility:[facility] Start: 05-07-2023 End: 05-07-2023 ambulatory [facility] Work Phone: Start: 05-07-2023 End: 05-07-2023 Patient encounter procedure [facility] Start: 12-29-2022 Non-patient / Non-visit Dr. Ap Rodriguez Work Phone: [facility] Work Phone: Start: 12-28-2022 Non-patient / Non-visit Dr. Ap Rodriguez Work Phone: [facility] Start: 12-28-2022 End: 12-28-[address] Marycarmen Rodriguez Work Phone: [facility] Work Phone: Start: 12-28-2022 End: 12-28-[address] Marycarmen Rodriguez Work Phone: [facility]-Cardiovascula r Services Work Phone: Start: 12-21-2022 End: 12-21-2022 Admission to same day surgery center Dr. Marycarmen Rodriguez Work Phone: [facility]-Income Tax Analyst/Special Procedures Work Phone: Start: 12-21-2022 End: 12-21-[address] Marycarmen Rodriguez Work Phone: [facility] Work Phone: Start: 12-15-2022 End: 12-15-[address] Marycarmen Rodriguez Work Phone: [facility] Work Phone: Start: 12-15-2022 End: 12-15-[address] Marycarmen Rodriguez Work Phone: [facility]-Laboratory Work Phone: Start: 12-15-2022 End: 12-15-[address] Marycarmen Rodriguez Work Phone: [facility] Work Phone: Start: 10-16-2022 End: 10-16-2022 ambulatory Marycarmen Rodriguez [facility] Work Phone: Start: 10-16-2022 End: 10-16-2022 Patient encounter procedure Marycarmen Rodriguez [facility]-Pulmonary Services/Neurology Start: 10-13-2022 End: 10-13-2022 ambulatory Marycarmen SWAIN [facility] Work Phone: Start: 10-13-2022 End: 10-13-2022 Patient encounter procedure Marycarmen SWAIN [facility] Start: 09-21-2022 Non-patient / Non-visit Marycarmen gifford [facility] Start: 09-20-2022 Non-patient / Non-visit Marycarmen gifford [facility] Inpatient Physicians Start: 09-19-2022 Non-patient / Non-visit Marycarmen gifford [facility] Start: 09-18-2022 Non-patient / Non-visit Marycarmen gifford [facility] Start: 09-17-2022 End: 09-17-2022 Non-patient / Non-visit Marycarmen SWAIN [facility] In[facility] Physicians Start: 09-17-2022 End: 09-21-2022 [facility] Start: 09-09-2022 Non-patient / Non-visit Marycarmen gifford [facility] Heart [facility] Start: 09-01-2022 Non-patient / Non-visit Marycarmen gifford [facility] Start: 08-31-2022 End: 08-31-2022 Non-patient / Non-visit Marycarmen SWAIN [facility] Heart [facility] Start: 08-31-2022 Non-patient / Non-visit Marycarmen gifford [facility] Heart [facility] Start: 08-31-2022 End: 09-01-2022 Evaluation and management of inpatient Marycarmen Rodriguez [facility] Start: 08-31-2022 End: 09-01-2022 observation encounter [facility] Work Phone: Start: 08-19-2022 End: 08-19-2022 ambulatory Marycarmen [facility] Work Phone: Start: 08-19-2022 End: 08-19-2022 Patient encounter procedure Marycarmen Jennifer [facility] Heart [facility] Start: 08-11-2022 Non-patient / Non-visit Marycarmen gifford [facility] Heart [facility] Start: 06-11-2022 End: 06-11-[address] Marycarmen Rodriguez Work Phone: [facility] Work Phone: Start: 06-11-2022 End: 06-11-[address] [facility]arm[facility] Rodriguez [facility] Start: 04-21-2022 Non-patient / Non-visit Dr. Ap Rodriguez Work Phone: [facility] Start: 04-21-2022 End: 04-21-[address] Marycarmen Rodriguez Work Phone: [facility] Work Phone: Start: 04-21-2022 End: 04-21-[address] Marycarmen Rodriguez Work Phone: [facility]-Cardiovascula r Services Start: 04-16-2022 End: 04-16-[address] [facility]carmen [facility] Start: 04-14-2022 End: 04-14-[address] Marycarmen Rodriguez Work Phone: [facility] Work Phone: Start: 04-14-2022 End: 04-14-[address] Marycarmen Rodriguez [facility] Start: 04-14-2022 End: 04-14-[address] Marycarmen Rodriguez Work Phone: [facility] Start: 03-27-2022 End: 03-27-[address] Marycarmen Rodriguez Work Phone: [facility] Start: 01-20-2022 End: 01-20-[address] Marycarmen Rodriguez Work Phone: [facility]-Cat Scan, [facility] Start: 01-07-2022 End: 01-07-[address] Marycarmen Rodriguez [facility] Start: 11-27-2021 Non-patient / Non-visit Dr. Ap Rodriguez Work Phone: [facility] Start: 11-26-2021 End: 11-26-[address] Marycarmen Rodriguez Work Phone: [facility]-Pulmonary Services/Neurology Start: 11-21-2021 End: 11-21-[address] Marycarmen Rodriguez Work Phone: [facility] Start: 11-16-2021 End: 11-16-2021 Emergency department patient visit Dr. Marycarmen Rodriguez Work Phone: [facility]-Emergency Department Start: 10-28-2021 End: 10-28-[address] Marycarmen Rodriguez Work Phone: [facility] Start: 09-16-2021 End: 09-16-[address] Marycarmen Rodriguez Work Phone: [facility], [facility] Start: 09-16-2021 End: 09-16-[address] Marycarmen Rodriguez Work Phone: [facility] Start: 08-15-2021 Non-patient / Non-visit Dr. Ap Rodriguez Work Phone: [facility] Start: 08-15-2021 Non-patient / Non-visit Dr. Ap Rodriguez Work Phone: [facility] Start: 08-15-2021 End: 08-15-[address] Marycarmen Rodriguez Work Phone: [facility]-Cardiovascula r Services Start: 08-01-2021 End: 08-01-[address] Marycarmen Rodriguez Work Phone: [facility] Start: 06-10-2021 End: 06-10-2021 Emergency department patient visit Dr. Marycarmen Rodriguez Work Phone: [facility]-Emergency Department Start: 05-19-2021 End: 05-19-2021 Emergency department patient visit Dr. Marycarmen Rodriguez Work Phone: [facility]-Emergency Department Start: 05-16-2021 End: 05-16-[address] 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); Mixed hyperlipidemia Start: 12-18-2020 ambulatory MIN [facility] y:[facility] Start: 10-15-2020 End: 10-16-2020 ambulatory [facility] Start: 10-15-2020 End: 10-15-2020 Subsequent hospital visit by physician Eladio Ingram MD Work Phone: [facility] Comment on above: Arrived Start: 10-10-2020 ambulatory FERNANDA ACUÑA [facility] Ambulatory Start: 10-09-2020 End: 10-09-2020 Orders Only Fernanda Acuña DRUG ROOM CLERK Work Phone: [employer] Comment on above: DEAN (dyspnea on exer tion) (Primary Dx) Start: 10-09-2020 End: 10-09-2020 Office outpatient new 45 minutes Fernanda Acuña CNP Work Phone: [facility] Office Comment on above: DEAN (dyspnea on exer tion); Essential hypertension; Type 2 diabetes mellitus without complication, without long-term current use of insulin (HCC); MATTHEW (obstructive sleep apnea); Coronary artery disease involving little traverse coronary artery of little traverse heart without angina pectoris Start: 10-04-2020 End: 10-04-2020 Orders Only Deisi March RN [facility] Office Comment on above: Shortness of breath (Primary Dx) Start: 12-17-2016 Office/outpatient vi sit, est, level 4 Eladio Ingram Work Phone: [facility] Start: 11-28-2016 End: 11-28-2016 Patient encounter procedure [facility] Procedures Date Procedure Procedure Detail Performing Clinician [...] Work Phone: Comment on above: Test Ordered: [id number] Screen, Urine Negative ng/mL UI Reference Range: Auhaya=359Fkpvhsabnmh test includes Amphetamine and Methamphetamine.Barbiturates Negative ng/mL UI Reference Range: Imxxai=919Mpryftxwyxduopi Negative ng/mL UI Reference Range: Ulfeux=558Cqagakd (Metab.), Urine Negative ng/mL UI Reference Range: Vajsqj=776Ucjzkqd Note: ng/mL UI See Final Results Reference Range: Cpuosi=755Bnlqmu test includes Codeine, Morphine, Hydromorphone, Hydrocodone.Opiates Positive [A ] UI Reference Range: Zezikc=093Zboljd test includes Codeine, Morphine, Hydromorphone, Hydrocodone.Codeine Negative UI Reference Range: Rdpeve=494Lizsdhca Negative UI Reference Range: Aaknrc=225Yxfcdpwgcmwny Negative UI Reference Range: Cqhdtd=165Jcmgpyhlnzf Positive [A ] UI Reference Range: .Hydrocodone Conf, MS, UR 349 ng/mL UI Reference Range: Qqdaow=0509-Etrzcgagcrbrav, Urine Negative ng/mL UI Reference Range: Cutoff=10Oxycodone/Oxymorphone, Urine Negative ng/mL UI Reference Range: Geiajs=643Wwdm includes Oxycodone and OxymorphonePCP, Urine Negative ng/mL UI Reference Range: Cutoff=25Methadone Screen, Urine Negative ng/mL UI Reference Range: Asgbfr=967Mifbyaehosob, Urine Negative ng/mL UI Reference Range: Gaclyc=953Dytqohhw, Urine Negative ng/mL UI Reference Range: Cutoff=2.0Test includes Fentanyl and NorfentanylThis test was developed and its performance characteristicsdetermined by [employer]. It has not been cleared orapproved by the Food and Drug Administration.Tramadol Negative ng/mL UI Reference Range: Rlnimg=546Dqijqchfqjvcp, Urine Negative ng/mL UI Reference Range: Cutoff=10Creatinine, Urine 36.9 mg/dL UI Reference Range: 20.0-300.0pH, Urine 6.1 UI Reference Range: 4.5-8.9Performed at: [facility] [id number] [place], [place] [id number] Director: Erik Wallis PhD, Phone: [phone] at: [address] [id number] Director: Bharath Hawthorne PhD, Phone: [phone] Start: 10-18-[address] Marycarmen [...] test using pharmacologic stress agent Dr. Marycarmen Rodirguez Work Phone: Start: 05-19-2021 Computed tomography of abdomen and pelvis with contrast Dr. Marycarmen Rodriguez Work Phone: Start: 10-15-2020 TTE w or wo fol wcon,Doppler Eladio Ingram MD Work Phone: Start: 10-09-2020 Ecg routine ecg w/le ast 12 lds w/i&r Fernanda Acuña DRUG ROOM CLERK Work Phone: Start: 08-18-2018 History of percutane ous transluminal coronary angioplasty History of percutaneous transluminal coronary angioplasty Dr. 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 Alexandr Mcclain Start: 08-13-2017 History of placement of stent for coronary artery disease History of coronary artery stent placement Dr. 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 Procedure aborted. 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4563HPA-VUCV-Ym and Stent-Mid RCA x 2 Multi Link Mini Vision Rx Stent 4.0 x 28 mm 01/21/2006 Plan of Treatment Date Care Activity Detail Author Start: 12-03-2024 Electrocardiographic procedure [facility] Start: 12-02-2024 Patient discharge [facility] Start: 12-02-2024 Electrocardiographic procedure [facility] Start: 12-02-2024 Magnetic resonance angiography of head without contrast [facility] Start: 12-02-2024 Magnetic resonance angiography of neck without contrast [facility] Start: 12-02-2024 MRA Head vessels WO contrast [facility] Start: 12-02-2024 MRA Neck vessels WO contrast [facility] Start: 12-01-2024 Vital signs measurements [facility] Start: 12-01-2024 Aspiration precautions [facility] Start: 12-01-2024 Cardiac monitoring [facility] Start: 12-01-2024 Catheterization of vein [facility] Start: 12-01-2024 Consultation [facility] Start: 12-01-2024 Continuous pulse oximetry [facility] Start: 12-01-2024 Elevation of head of bed [facility] Start: 12-01-2024 Exercises [facility] Start: 12-01-2024 Notification of physician [facility] Start: 12-01-2024 Oxygen therapy [facility] Start: 12-01-2024 Patient referral to dietitian [facility] Start: 12-01-2024 Referral to occupational therapist [facility] Start: 12-01-2024 Referral to service [facility] Start: 12-01-2024 Speech therapy assessment [facility] Start: 12-01-2024 Telemedicine consultation with patient [facility] Start: 12-01-2024 Tobacco use cessation education [facility] Start: 12-01-2024 End: 12-01-2024 [facility] Start: 12-01-2024 [facility] Start: 12-01-2024 [facility] Start: 12-01-2024 Electrocardiographic procedure [facility] Start: 12-01-2024 Continuous positive airway pressure ventilation treatment [facility] Start: 12-01-2024 US Heart [facility] Start: 12-01-2024 Complete blood count [facility] Start: 11-30-2024 End: 11-30-2024 [facility] Start: 11-30-2024 Following clinical pathway protocol [facility] Start: 11-30-2024 Ambulation without limitation [facility] Start: 11-30-2024 Assessment of risk of venous thromboembolism [facility] Start: 11-30-2024 Insertion of catheter into peripheral vein [facility] Start: 11-30-2024 Measuring intake and output [facility] Start: 11-30-2024 Providing care according to standard [facility] Start: 11-30-2024 Referral to service [facility] Start: 11-30-2024 Care regimes management [facility] Start: 11-30-2024 Complete blood count [facility] Start: 11-30-2024 Elevation of head of bed [facility] Start: 11-30-2024 Admission procedure [facility] Start: 11-30-2024 Cardiac monitoring [facility] Start: 11-30-2024 Cardiac rehabilitation - phase 1 [facility] Start: 11-30-2024 Cardiac rehabilitation - phase 2 [facility] Start: 11-30-2024 Dietary regime [facility] Start: 11-30-2024 Log roll [facility] Start: 11-30-2024 End: 11-30-2024 Notification of physician [facility] Start: 11-30-2024 Oxygen therapy [facility] Start: 11-30-2024 Patient discharge [facility] Start: 11-30-2024 Provision of activity privileges [facility] Start: 11-30-2024 Pulse taking [facility] Start: 11-30-2024 Hospital admission, emergency, from emergency room, medical nature [facility] Start: 11-30-2024 Electrocardiographic procedure [facility] Start: 11-30-2024 End: 11-30-2024 [facility] Start: 11-30-2024 Partial thromboplastin time, activated [facility] Start: 11-30-2024 Prothrombin time [facility] Start: 11-28-2024 [facility] Start: 11-28-2024 Patient discharge [facility] Start: 11-28-2024 Complete blood count [facility] Start: 11-27-2024 Following clinical pathway protocol [facility] Start: 11-27-2024 Elevation of head of bed [facility] Start: 11-27-2024 Dietary regime [facility] Start: 11-27-2024 Log roll [facility] Start: 11-27-2024 Provision of activity privileges [facility] Start: 11-27-2024 End: 11-27-2024 [facility] Start: 11-27-2024 Admission procedure [facility] Start: 11-27-2024 Cardiac monitoring [facility] Start: 11-27-2024 Cardiac rehabilitation - phase 1 [facility] Start: 11-27-2024 Cardiac rehabilitation - phase 2 [facility] Start: 11-27-2024 Notification of physician [facility] Start: 11-27-2024 Oxygen therapy [facility] Start: 11-27-2024 Pulse taking [facility] Start: 11-27-2024 Continuous positive airway pressure ventilation treatment [facility] Start: 11-27-2024 Inhalation therapy procedure [facility] Start: 11-26-2024 [facility] Start: 11-26-2024 [facility] Start: 11-22-2024 Evaluation of diagnostic study results [facility] Start: 10-25-2024 Evaluation of diagnostic study results [facility] Start: 07-25-2024 Walking distance 6 minutes [facility] Start: 07-17-2024 Measurement of respiratory function [facility] Start: 12-21-2022 Patient discharge [facility] Start: 10-05-2022 Measurement of respiratory function [facility] Start: 09-21-2022 Patient discharge [facility] Start: 09-20-2022 Telepractice consultation [facility] Start: 09-18-2022 Following clinical pathway protocol [facility] Start: 09-17-2022 Aspiration precautions [facility] Start: 09-17-2022 Assessment of risk of venous thromboembolism [facility] Start: 09-17-2022 Cardiac monitoring [facility] Start: 09-17-2022 Care regimes management [facility] Start: 09-17-2022 Catheterization of vein [facility] Start: 09-17-2022 Continuous positive airway pressure ventilation treatment [facility] Start: 09-17-2022 Continuous pulse oximetry [facility] Start: 09-17-2022 Elevation of head of bed [facility] Start: 09-17-2022 Exercises [facility] [facility] Start: 09-17-2022 Fall prevention [facility] Start: 09-17-2022 Implementation of planned interventions [facility] Start: 09-17-2022 Inhalation therapy procedure [facility] Start: 09-17-2022 Insertion of catheter into peripheral vein [facility] Start: 09-17-2022 Introduction of urinary catheter [facility] Start: 09-17-2022 Measuring intake and output [facility] Start: 09-17-2022 Notification of physician [facility] Start: 09-17-2022 Oxygen therapy [facility] Start: 09-17-2022 End: 09-18-2022 Patient referral to dietitian [facility] Start: 09-17-2022 Providing care according to standard [facility] Start: 09-17-2022 Provision of activity privileges [facility] Start: 09-17-2022 Referral to occupational therapist [facility] Start: 09-17-2022 Referral to service [facility] Start: 09-17-2022 Speech therapy assessment [facility] Start: 09-17-2022 Tobacco use cessation education [facility] Start: 09-17-2022 [facility] Start: 09-17-2022 Admission procedure [facility] Start: 09-01-2022 Patient discharge [facility] Start: 08-31-2022 Patient referral [facility] Work Phone: Start: 08-31-2022 Following clinical pathway protocol [facility] Start: 08-31-2022 Pulse taking [facility] Start: 08-31-2022 Cardiac monitoring [facility] Start: 08-31-2022 Cardiac rehabilitation - phase 1 [facility] Start: 08-31-2022 Cardiac rehabilitation - phase 2 [facility] Start: 08-31-2022 Notification of physician [facility] Start: 08-31-2022 Oxygen therapy [facility] Start: 08-31-2022 Patient discharge [facility] Start: 08-31-2022 Taking patient vital signs [facility] Start: 08-31-2022 Vascular disease risk assessment [facility] Start: 08-31-2022 Vital signs measurements [facility] Start: 08-31-2022 End: 08-31-2022 [facility] Start: 08-31-2022 Admission procedure [facility] Start: 11-16-2021 [facility] Work Phone: Start: 01-10-2021 End: 01-10-2021 Admission to same day surgery center 01/10/2021 Surgery Cardiology Eladio Ingram MD [address] [facility] [address] [place] [address] Left Heart Cath Possible PTCA/Stent [facility] Income Tax Analyst Comment on above: Left Heart Cath Possible PTCA/Stent Start: 01-10-2021 Subsequent hospital visit by physician 01/10/2021 Hospital Encounter Eladio Ingram MD [address] [facility] [address] [place] [address] [facility] Procedural Care Unit Start: 01-01-2021 Influenza vaccination [facility] Start: 12-26-2020 End: 12-26-2020 Patient encounter procedure 12/26/2020 Office Visit Cardiology Marycarmen Rodriguez, [address] [place], [place] [address] Eladio Ingram MD [address] [facility] [address] [place] [address] [phone] [facility] Office Start: 10-15-2020 End: 10-15-2020 Patient encounter procedure 10/15/2020 Appointment Cardiology Eladio Ingram MD [address] [facility] [address] [place] [address] [phone] [facility] Start: 10-09-2020 End: 10-09-2020 Patient encounter procedure 10/09/2020 Office Visit Cardiology Fernanda Acuña, DRUG ROOM CLERK [address] [place] [address] [phone] [facility] Office Start: 11-05-2017 Prostate specific antigen measurement PSA Level [facility] Start: 06-01-2017 HEMOGLOBIN A1C HEMOGLOBIN A1C [facility] Work Phone: Start: 06-01-2017 Hemoglobin A1c measurement A1C [facility] Start: 06-01-2017 Hemoglobin A1c/Hemoglobin.total mass fraction (Bld) HEMOGLOBIN A1C [facility] Work Phone: Start: 01-01-2017 SEQUENTIAL INFLUENZA VACCINE (#1) SEQUENTIAL INFLUENZA VACCINE (#1) [facility] Work Phone: Start: 12-17-2016 Ambulatory 12/17/2016 Office Visit Cardiology Eladio Ingram MD [address] [place] [address] [phone] [facility] Start: 2010 ABDOMINAL AORTIC ULTRASOUND ABDOMINAL AORTIC ULTRASOUND [facility] Work Phone: Start: 2010 Fall risk assessment Falls Risk Assessment [facility] Start: 2010 PNEUMOCOCCAL VACCINE AGE 65+ (1 of 2 - PCV13) PNEUMOCOCCAL VACCINE AGE 65+ (1 of 2 - PCV13) [facility] Work Phone: Start: 2005 Zoster vacc, sc ZOSTER VACCINE [facility] Work Phone: Start: 08-01-1995 Administration of herpes zoster vaccine Zoster Vaccines (1 of 2) [facility] Start: 08-01-1995 Screening for malignant neoplasm of colon [facility] Start: 08-01-1963 Hepatitis C screening Hepatitis C Screening [facility] Start: 1957 COVID-19 Vaccine (1) COVID-19 Vaccine (1) [facility] Start: 08-01-1955 3 comp foot exam completed FOOT EXAM [facility] Work Phone: Start: 08-01-1955 Albumin Test strip detection limit <= 20 mg/L mass conc (U) URINE MICROALBUMIN [facility] Work Phone: Start: 08-01-1955 Diabetic foot examination Foot Exam [facility] Start: 08-01-1955 Microalbumin measurement, urine, quantitative Urine Microalbumin [facility] Start: 08-01-1955 Ophthalmic examination and evaluation OPHTHALMOLOGY EXAM [facility] Start: 08-01-1955 FOOT EXAM FOOT EXAM [facility] Work Phone: Start: 08-01-1955 OPHTHALMOLOGY EXAM OPHTHALMOLOGY EXAM [facility] Work Phone: Start: 08-01-1955 URINE MICROALBUMIN URINE MICROALBUMIN [facility] Work Phone: Start: 08-01-1951 Pneumococcal Vaccine: Age 65+ (1 of 2 - PPSV23) Pneumococcal Vaccine: Age 65+ (1 of 2 - PPSV23) [facility] Start: 1948 History and physical examination, annual for health maintenance Wellness Visit [facility] Start: 1945 Colonoscopy COLONOSCOPY [facility] Work Phone: Start: 1945 Tetanus vaccination Tetanus: Every 10yrs [facility] Start: 1945 Colonoscopy COLONOSCOPY [facility] Work Phone: Start: 1945 End: 1945 HEPATITIS C SCREENING HEPATITIS C SCREENING [facility] Work Phone: Start: 1945 End: 1945 TETANUS EVERY 10 YR TETANUS EVERY 10 YR [facility] Work Phone: Alanine aminotransfe rase [Enzymatic activity/volume] in Serum or Plasma [facility] Alanine aminotransfe rase [Enzymatic activity/volume] in Serum or Plasma [facility] Albumin [Mass/volume ] in Serum or Plasma [facility] Albumin [Mass/volume ] in Serum or Plasma [facility] Alkaline phosphatase [Enzymatic activity/volume] in Serum or Plasma [facility] Alkaline phosphatase [Enzymatic activity/volume] in Serum or Plasma [facility] Anion gap in Serum or Plasma [facility] Anion gap in Serum or Plasma [facility] End: 12-26-2021 Basic metabolic 2000 panel - Serum or Plasma Basic metabolic panel Lab Routine 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, unspecified whether little traverse or transplanted heart (HCC) Essential hypertension 1 Occurrences starting 12/26/2020 until 12/26/2021 [facility] Comment on above: 1 Occurrences starting 12/26/2020 until 12/26/2021 Basic metabolic 1999 panel - Serum or Plasma Basic metabolic panel Lab Routine 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, unspecified whether little traverse or transplanted heart (HCC) Essential hypertension 12/26/2020 11:28 AM EDT [facility] Basic metabolic 2007 panel with ionized calcium - Serum or Plasma [facility] Basic metabolic 2007 panel with ionized calcium - Serum or Plasma [facility] End: 08-17-2018 Basic metabolic panel [AGGREGATE] Basic metabolic panel Routine MATTHEW (obstructive sleep apnea) Coronary artery disease involving little traverse coronary artery of [place] traverse heart without angina pectoris 1 Occurrences starting 12/17/2016 until 12/17/2017 [facility] Work Phone: Bilirubin, total measurement [facility] Bilirubin, total measurement [facility] Blood chemistry [facility] BUN/Creatinine ratio [facility] BUN/Creatinine ratio [facility] Calcium [Mass/volume ] in Serum or Plasma [facility] Calcium [Mass/volume ] in Serum or Plasma [facility] Carbon dioxide, tota l [Moles/volume] in Central venous blood [facility] Carbon dioxide, tota l [Moles/volume] in Central venous blood [facility] Catheterization of l [facility] heart [facility] Catheterization of l [facility] Catheterization of l [facility] CBC W Auto Different ial panel - Blood [facility] CBC W Auto Different ial panel - Blood [facility] End: 12-26-2021 Complete blood count with white cell differential, manual CBC and differential Lab Routine 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, unspecified whether little traverse or transplanted heart (HCC) Essential hypertension 1 Occurrences starting 12/26/2020 until 12/26/2021 [facility] Work Phone: Comment on above: 1 Occurrences starting 12/26/2020 until 12/26/2021 Complete blood count with white cell differential, manual CBC and differential Lab Routine 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, unspecified whether little traverse or transplanted heart (HCC) Essential hypertension 12/26/2020 11:28 AM EDT [facility] Creatinine [Mass/vol ume] in Serum or Plasma [facility] Creatinine [Mass/vol ume] in Serum or Plasma [facility] End: 01-10-2022 CT Angiogram Aorta Chest Abdomen Pelvis CT Angiogram Aorta Chest Abdomen Pelvis Imaging Routine Coronary artery disease involving little traverse coronary artery of little traverse heart with angina pectoris (HCC) 1 Occurrences starting 01/10/2021 until 01/10/2022 [facility] Work Phone: Comment on above: 1 Occurrences starting 01/10/2021 until 01/10/2022 End: 12-04-2021 Echocardiography Echocardiogram complete Echocardiography Routine Shortness of breath 1 Occurrences starting 10/04/2020 until 12/04/2021 [facility] Comment on above: 1 Occurrences starting 10/04/2020 until 12/04/2021 Erythrocyte mean cor puscular volume determination [facility] Erythrocyte mean cor puscular volume determination [facility] Erythrocyte mean cor puscular volume determination [facility] Glucose [Mass/volume ] in Serum or Plasma [facility] Glucose [Mass/volume ] in Serum or Plasma [facility] Hematocrit [Volume F raction] of Blood [facility] Hematocrit [Volume F raction] of Blood [facility] Hematocrit [Volume F raction] of Blood [facility] Hemoglobin [Mass/vol ume] in Blood [facility] Hemoglobin [Mass/vol ume] in Blood [facility] Hemoglobin [Mass/vol ume] in Blood [facility] INR in Blood by Coag ulation assay [facility] LEFT HEART CATH POSS IBLE PTCA/STENT LEFT HEART CATH POSSIBLE PTCA/STENT [facility] Leukocytes [#/volume ] in Blood [facility] Leukocytes [#/volume ] in Blood [facility] Leukocytes [#/volume ] in Blood [facility] End: 12-17-2017 Magnesium Magnesium Routine MATTHEW (obstructive sleep apnea) Coronary artery disease involving [place] coronary artery of [place] traverse heart without angina pectoris 1 Occurrences starting 12/17/2016 until 12/17/2017 [facility] Work Phone: Mean corpuscular hem oglobin concentration determination [facility] Mean corpuscular hem oglobin concentration determination [facility] Mean corpuscular hem oglobin concentration determination [facility] Mean corpuscular hem oglobin determination [facility] Mean corpuscular hem oglobin determination [facility] Mean corpuscular hem oglobin determination [facility] Measurement of renal function [facility] Measurement of renal function [facility] Measurement of respi ratory function [facility] Work Phone: Natriuretic peptide. B prohormone N-Terminal [Mass/volume] in Serum or Plasma [facility] Natriuretic peptide. B prohormone N-Terminal [Mass/volume] in Serum or Plasma [facility] NM Heart Views W str ess and W radionuclide IV [facility] Patient Education [facility] Work Phone: Patient referral [facility] Work Phone: Platelets [#/volume] in Blood [facility] Platelets [#/volume] in Blood [facility] Platelets [#/volume] in Blood [facility] Potassium measurement [facility] Potassium measurement [facility] Red blood cell count [facility] Red blood cell count [facility] Red blood cell count [facility] Red cell distributio n width determination [facility] Red cell distributio n width determination [facility] Red cell distributio n width determination [facility] Serum chloride measurement [facility] Serum chloride measurement [facility] Sodium measurement [facility] Sodium measurement [facility] Total protein measurement [facility] Total protein measurement [facility] Troponin T.cardiac [Mass/volume] in Serum or Plasma by High sensitivity method [facility] Troponin T.cardiac [Mass/volume] in Serum or Plasma by High sensitivity method [facility] Urea nitrogen [Mass/ volume] in Serum or Plasma [facility] Urea nitrogen [Mass/ volume] in Serum or Plasma [facility] Chest PA and Lateral [facility] Immunizations Immunization Date Immunization Notes Care Provider Fa cility 11-26-2024 tetanus toxoid, redu terry diphtheria toxoid, and acellular pertussis vaccine, adsorbed Dr. Marycarmen Rodriguez DO Work Phone: [facility] 02-19-2023 influenza, injectabl e, quadrivalent, preservative free Dr. Marycarmen Rodriguez DO Work Phone: [facility] 01-27-2022 influenza, injectabl e, quadrivalent, preservative free Dr. Marycarmen Rodriguez DO Work Phone: [facility] 09-04-2021 Covid (App [employer]) Dr. Marycarmen hough DO Work Phone: [facility] 02-24-2021 Covid (Pfizer) Dr. Marycarmen hough DO Work Phone: [facility] 06-27-2020 Covid (Pfizer) Dr. Marycarmen hough DO Work Phone: [facility] 05-31-2020 Covid (Pfizer) Dr. Marycarmen hough DO Work Phone: [facility] 02-20-[address] Marycarmen Rodriguez Work Phone: [facility] 02-14-[address] Marycarmen Rodriguez Work Phone: [facility] 01-31-[address] Marycarmen Rodriguez Work Phone: [facility] 04-12-2017 influenza, high dose seasonal, preservative-free Dr. Marycarmen Rodriguez DO Work Phone: [facility] 11-29-2016 HEMOGLOBIN A1C [facility] Work Phone: 08-16-2014 pneumococcal polysaccharide vaccine, [address] Marycarmen Rodriguez DO Work Phone: [facility] 08-05-2005 hepatitis A vaccine, pediatric/adolescent dosage, [address] Marycarmen Rodriguez DO Work Phone: [facility] 01-14-2005 hepatitis A vaccine, pediatric/adolescent dosage, [address] Marycarmen Rodriguez DO Work Phone: [facility] 01-14-2005 TD(adult) unspecifie d formulation Dr. Marycarmen Rodriguez DO Work Phone: [facility] Payers Date Payer Category Payer Self-pay [id number] 2019 Unknown [id number] 1. [id number] 2019 Unknown [id number] 2012 Unknown [id number] 2.1 6.840.1.040827.3.249.13 2010 Medicare [id number] 2.16 .840.1.269378.3.249.13 2010 Medicare [id number] 1.2 .840.536479.1.13.385.2.7.3.656961.315 2010 Medicare [id number] 2010 Medicare [id number] 1945 Unknown [id number] 2.16. 840.1.137321.3.579.2.594 1945 Unknown [id number] 2.16. 840.1.090611.3.579.2.902 1945 Unknown [id number] 2.16. 840.1.223593.3.579.2.903 1945 Unknown [id number] 2.16. 840.1.930499.3.579.2.903 1945 Unknown [id number] 2.16. 840.1.566391.3.579.2.903 1945 Unknown [id number] 2.16. 840.1.435230.3.579.2.903 1945 Unknown [id number] 2.16. 840.1.994469.3.579.2.903 1945 Unknown [id number] 2.16. 840.1.385920.3.579.2.903 1945 Unknown [id number] 2.16. 840.1.286720.3.579.2.903 1945 Unknown [id number] 2.16. 840.1.259848.3.579.2.903 Unknown [id number] 2.16.8 40.1.108589.3.579.2.462 Unknown [id number] 2.16.8 40.1.093312.3.579.2.462 Unknown [id number] 2.16.8 40.1.118431.3.579.2.462 Unknown [id number] 2.16.8 40.1.770260.3.579.2.462 Unknown [id number] 2.16.8 40.1.185436.3.579.2.462 Unknown [id number] 2.16.8 40.1.830806.3.579.2.462 Unknown [id number] 2.16.8 40.1.369834.3.579.2.462 Unknown [id number] 2.16.8 40.1.631689.3.579.2.462 Unknown [id number] 2.16.8 40.1.066785.3.579.2.462 Unknown [id number] 2.16.8 40.1.354530.3.579.2.462 Unknown [id number] 2.16.8 40.1.002362.3.579.2.462 Unknown [id number] 2.16.8 40.1.628867.3.579.2.462 Unknown [id number] 2.16.8 40.1.169331.3.579.2.462 Unknown [id number] 2.16.8 40.1.854927.3.579.2.462 Unknown [id number] 2.16.8 40.1.326154.3.579.2.462 Unknown [id number] 2.16.8 40.1.665082.3.579.2.462 Unknown [id number] 2.16.8 40.1.114268.3.579.2.462 Unknown [id number] 2.16.8 40.1.375463.3.579.2.462 Unknown [id number] 2.16.8 40.1.974035.3.579.2.462 Unknown [id number] 2.16.8 40.1.117095.3.579.2.462 Unknown [id number] 2.16.8 40.1.741263.3.579.2.462 Unknown [id number] 2.16.8 40.1.737341.3.579.2.462 Unknown [id number] 2.16.8 40.1.134262.3.579.2.462 Unknown [id number] 2.16.8 40.1.985999.3.579.2.462 Unknown [id number] 2.16.8 40.1.925609.3.579.2.462 Unknown [id number] 2.16.8 40.1.729601.3.579.2.462 Unknown [id number] 2.16.8 40.1.644907.3.579.2.462 Unknown [id number] 2.16.8 40.1.742792.3.579.2.462 Unknown [id number] 2.16.8 40.1.589813.3.579.2.462 Unknown [id number] 2.16.8 40.1.957196.3.579.2.462 Unknown [id number] 2.16.8 40.1.257403.3.579.2.462 Unknown [id number] 2.16.8 40.1.022987.3.579.2.462 Unknown [id number] 2.16.8 40.1.171857.3.579.2.462 Unknown [id number] 2.16.8 40.1.185507.3.579.2.462 Unknown [id number] 2.16.8 40.1.869199.3.579.2.462 Unknown [id number] 2.16.8 40.1.766582.3.579.2.462 Unknown [id number] 2.16.8 40.1.154642.3.579.2.462 Unknown [id number] 2.16.8 40.1.454346.3.579.2.462 Social History Date Type Detail Facility Start: 12-17-2016 End: 12-02-2024 Tobacco smoking status NHIS Former smoker [facility] Start: 12-17-2016 End: 10-09-2020 Cigarettes smoked current (pack per day) - Reported [facility] Work Phone: Start: 1945 Sex Assigned At Not on file [facility] Work Phone: Start: 12-17-2016 End: 10-09-2020 Tobacco use and exposure Never used [facility] Start: 12-17-2016 End: 01-10-2021 Alcohol intake Current non-drinker of alcohol (finding) [facility] Start: 03-10-2016 Tobacco Comment quit 25+ yrs ago [facility] Exposure to SARS-CoV -2 (event) Not sure [facility] Start: 08-01-2021 End: 12-21-2022 Tobacco smoking status NHIS Unknown if ever smoked [facility] Start: 01-12-2020 None [facility] Start: 01-12-2020 Spouse/ Signif icant Other [facility] Start: 11-18-2020 Non-smoker [facility] Start: 1945 Sex Assigned At Male W [facility] Start: 07-13-2024 End: 08-08-2024 Sex Male (finding) [facility] Medical Equipment Procedure Code Equipment Code Equipment Origin al Text Equipment Identifier Dates Stent 3.50 X 23 [facility] Rx - [id number] FDA Start: 01-04-2015 ()[id number] [id number] FDA Start: 08-31-2022 ()[id number] FDA Start: 08-31-2022 ()[id number] [id number] FDA Start: 11-27-2024 ()[id number] [id number] FDA Start: 11-30-2024 [id number] [id number] FDA Start: 11-30-2024 Goals Date Patient Goal Desired Activity /State Functional Status Date Assessment Result Facility 12-02-2024 Functional status Bedrest [facility] Work Phone: 11-28-2024 Functional status Ambulates [facility] Work Phone: 11-27-2024 Functional status [facility] Work Phone: 09-21-2022 Functional status Chair [facility] Work Phone: 09-20-2022 Functional status Assistive Ning lauro Rolling Walker [facility] Work Phone: 09-01-2022 Functional status Activity Ability Indepe ndent [facility] Work Phone: 08-31-2022 Functional status Ambulates [facility] Work Phone: Mental Status Date Assessment Result Facility 12-02-2024 Cognitive function Voice/Name [facility] Work Phone: 11-28-2024 Cognitive function Voice/Name [facility] Work Phone: 11-27-2024 [facility] function [facility] Work Phone: 09-21-2022 Cognitive function Voice/Name [facility] Work Phone: 09-01-2022 Cognitive function Appropriate;Cooperativ e [facility] Work Phone: 11-16-2021 Cognitive function Voice/Name [facility] Work Phone: 06-10-2021 Cognitive function Level Of Cons ciousness Awake;Alert;Appropriate [facility] Work Phone: Clinical Notes 06-25-2020 to 12-02-2024 Note Date & Type Note Facility 12-02-2024 Consult note Note Date/Time December 02, 2024 12:23pm [facility] Medical Records Department [address] [place] [address] Consultation - Neurology 12/02/24 1207 MR#: [id number] Acct: [id number] Name: ERIBERTO RICO Rep #:[id number] 17 : 1945 79 From: Jamar Hooker PCP: Dr. Marycarmen Rodriguez, DO Status:ADM IN Location: [place] [address] Assessment and Plan: Neuro Assessment/Plan ERIBERTO RICO [...] questions or concerns. Stroke to sign off. [facility] Medical History (Updated 12/01/24 @ 09:47 by [...] kidney disease, stage 3 Atherosclerotic heart disease little [place] coronary artery w/angina pectoris Type 2 diabetes [...] 78.9 H, Lymph % (Auto) 7.6 L, Whitman % (Auto) 12.0 H, Eos % (Auto) [...] abnormality. 2. Age-related senescent changes. Reading Location: [facility] Active Medications Active Medications Active Medications: Current [...] Furosemide 80 Mg Tablet PO DAILY [facility] Protocol Glucagon 1 mg 11/30/24 17:07 Glucagon 1 Mg/Ml Syringe IM X1 PRN Hypoglycemia Protocol Hydralazine HCl 5 mg 12/01/24 20:19 Hydralazine 20 Mg/Ml Vial IV 12/02/24 20:19 Q30M PRN maintain BP parameters with HR <60 Dextrose 250 mls @ 0 mls/hr 11/30/24 17:07 Dextrose 10%-Water IV .Q0M PRN HYPOGLYCEMIA Protocol As Directed Sodium Chloride 250 mls @ 15 mls/hr 11/30/24 17:25 IV .[id number] PRN Saline Flush Sodium Chloride 250 mls @ 15 mls/hr 11/30/24 17:25 IV .[id number] PRN Additional IVPB Infusion Insulin Human Lispro [...] or with change in RN caregiver Freq: [id number] Protocol: Activity Type Activity Date Activity User E-sign Co-sign Detail Recorded Client Recorded Date Recorded By Document 12/01/24 20:15 [id number] 12/01/24 20:28 CD 12/01/24 20:15 NIH Stroke [...] and with change in RN caregiver. Freq: [id number] Protocol: Activity Type Activity Date Activity User E-sign Co-sign Detail Recorded Client Recorded Date Recorded By Document 12/02/24 10:00 GRIS [id number] 12/02/24 10:20 TSTIKA 12/02/24 10:00 NIH Stroke [...] Hay MD; Dr. Marycarmen Rodriguez, DO~ Signed [facility] Work Phone: 1(182) 373-632708-02-2025 Hospital Discharge instructionsAdditional Instructions 1. It is very important to not miss any doses of your ticagrelor (Brilinta) and aspirin. Please take these as prescribed with no missed doses. If you miss doses you could clot off your stents. Date of Discharge: 12/02/24[facility] Work Phone: 1(336) 582-769208-01-2025 Progress note Author Abraham Ridley [facility] Note Date/Time December 01, 2024 8:2 6pm [facility] Medical Records Department [address] [place] [address] Progress Note - Hospitalist 12/01/242020 MR#: [id number] Acct: [id number] Name: ERIBERTO RICO Rep #:[id number] : 1945 79 From: Abraham inman DO PCP: Dr. Marycarmen Rodriguez, Status:ADM IN Location: [place] [address] Hospitalist Note Stroke alert called around 7 PM. Last known well 6:55 PM. Patient reported to [facility] that he had left facial numbness and [...] Cosigner Signature (if applicable): CC: ~ Signed [facility] Work Phone: 1(740) 420-298408-01-2025 Radiology Diagnostic study [facility]08-01-2025 Progress note Author Nickie Danielson [facility] Note Date/Time December 01, 2024 3:5 0pm [facility] Medical Records Department [address] [place] [address] Progress Note - Hospitalist 12/01/24712 MR#: [id number] Acct: [id number] Name: ERIBERTO RICO Rep #:[id number] : 1945 79 From: Nickie Danielson DO PCP: Dr. Marycarmen Rodriguez, DO Status:ADM IN Location: [place] [address] Reason for Visit Chief Complaint: STEMI Subjective [...] 80.9 H, Lymph % (Auto) 10.1 L, Whitman % (Auto) 7.7, Eos % (Auto) 0.4, Baso % (Auto) 0.2, Absolute Neuts (auto) 15.5 H, Absolute Lymphs (auto) 1.93, Nucleated RBC % 0.1, PT 16.1 H, INR 1.3, APTT 112.9 H*, Sodium 135, Potassium 4.4, Chloride 98, Carbon Wkrnpmh27.3 L, Anion Gap 19 H, BUN 45 [...] evidence of acute pulmonary disease. Reading Location: [facility] Physical Exam Const alert, oriented x3, no [...] subcu heparin Charges/Coding Visit Charges Inpatient E&M: 65130 [facility] Hosp L2 12/01/24 6147 <Electronically signed by Nickie Danielson DO> Cosigner Signature (if applicable): CC: ~ Signed [facility] Work Phone: 1(394) 115-621408-01-2025 Progress note Author Marcin Araujo [facility] Note Date/Time December 01, 2024 7:3 7am [facility] Medical Records Department [address] [place] [address] Progress Note - Cardiology 12/01/24 0734 MR#: [id number] Acct: [id number] Name: ERIBERTO RICO Rep #:[id number] : [...] 80.9 H, Lymph % (Auto) 10.1 L, Whitman % (Auto) 7.7, Eos % (Auto) 0.4, Baso % (Auto) 0.2, Absolute Neuts (auto) 15.5 H, Absolute Lymphs (auto) 1.93, Nucleated RBC % 0.1, PT 16.1 H, INR 1.3, APTT 112.9 H*, Sodium 135, Potassium 4.4, Chloride 98, Carbon Gcsvdcg57.3 L, Anion Gap 19 H, BUN 45 [...] 80.9 H, Lymph % (Auto) 10.1 L, Whitman % (Auto) 7.7, Eos % (Auto) 0.4, [...] evidence of acute pulmonary disease. Reading Location: [facility] Physical Exam Const alert, oriented x3 and [...] Cosigner Signature (if applicable): CC: ~ Signed [facility] Work Phone: 1(235) 132-685407-31-2025 Discharge summary Author Isael Bernabe [facility] Note Date/Time November 30, 2024 9:35 pm [facility] Medical Records Department [address] [place] [address] Emergency Department Summary 11/30/24 MR#: [id number] Acct: [id number] Name: ERIBERTO RICO Rep #:[id number] : [...] was sent, they administeredaspirin, Brilinta, and heparin. 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 Does not have elevation of his white [...] 80.9 H Lymph % (Auto) 10.1 L Whitman % (Auto) 7.7 Eos % (Auto) 0.4 [...] (STEMI) myocardial infarction Disposition Disposition: Acute Care [facility] Discharge Date/Time: 11/30/24 15:21 What to do if you have Problems For any increased pain, shortness of breath, bleeding, nausea or vomiting, chestpain, or any unexpected problems, contact your Primary Care Provider. Call [facility] ([phone]) or report to the closest Emergency Room. Call 911 if necessary. 11/30/242134 <Electronically signed by Isael Bernabe MD> Cosigner Signature (if applicable): CC: Dr. Marycarmen Rodriguez, ~ Signed [facility] Work Phone: 1(483) 490-388307-31-2025 Progress note Author Isael Bernabe [facility] Note Date/Time November 30, 2024 9:33 pm [facility] Medical Records Department [address] [place] [address] Quality Report 11/30/241604 MR#: [id number] Acct: [id number] Name: ERIBERTO RICO Rep #:[id number] : [...] applicable): Date Donald Bill CC: ~ Signed [facility] Work Phone: 1(657) 192-428207-31-2025 History and physical note Author Abraham Ridley [facility] Note Date/Time November 30, 2024 9:30 pm [facility] Medical Records Department [address] [place] [address] H&P Exam - Hospitalist 11/30/24 1705 MR#: [id number] Acct: [id number] Name: ERIBERTO RICO Rep #:[id number] : 1945 79 From: Abraham inman DO PCP: Dr. Marycarmen Rodriguez, DO Status:ADM IN Location: ICU CVICU20 3-1 HPI - General General Date of Admission: 11/30/24 Date of Service: 11/30/24 Chief Complaint: STEMI HPI Narrative ERIBERTO RICO, is a 79 M who presented to [facility] on 11/30/2024 as a STEMI alert. Follows with [facility] with complex CAD history, see office [...] STEMI. He was taken emergently to the Income Tax Analyst and coronary angiography revealed a subacute stent [...] room air. No other acute concerns currently. 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 EbhsF6p from 2022 was 7.7%. Repeat A1c ordered. [...] 75 minutes. Charges/Coding Visit Charges Inpatient E&M: 83354 Init Hosp L3 11/30/242129 <Electronically signed by Abraham Ridley DO> Cosigner Signature (if applicable): CC: Dr. Abraham Ridley DO; Dr. Marycarmen Rodriguez DO~ Signed [facility] Work Phone: 1(340) 527-712107-31-2025 Radiology Diagnostic study [facility]2025 Consult note Author Jose Hay [facility] Note Date/Time November 30, 2024 4:51 pm [facility] Medical Records Department [address] [place] [address] Consultation - Cardiology 11/30/24 1642 MR#: [id number] Acct: [id number] Name: ERIBERTO RICO Rep #:[id number] : [...] infarction. Subsequently a STEMI alert was called. 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 Marycarmen Rodriguez DO~ Signed [facility] Work Phone: 1(155) [phone] Consult note Author Cyndie Frye [facility] Note Date/Time November 28, 2024 12:2 8pm [facility] Medical Records Department [address] [place] [address] Counseling Note - Pharmacy 11/28/24 0920 MR#: [id number] Acct: [id number] Name: ERIBERTO RICO Rep #:[id number] : 1945 79 From: Cyndie Frye PCP: Dr. Marycarmen Rodriguez, DO Status:ADM EDMUND Y Location: [place] [address] Pharmacy [place] Med Reconciliation Pharmacy Service has performed discharge [...] Signature (if applicable): Date CC: ~ Signed [facility] Work Phone: 1(127) [phone] Discharge summary Author Jose Hay [facility] Note Date/Time November 27, 2024 11:3 5am [facility] Medical Records Department [address] [place] [address] Instructions for Home/Discharge Instructions 11/27/24 1128 MR#: [id number] Acct: [id number] Name: ERIBERTO RICO Rep #:[id number] : [...] Care Provider: Marycarmen Rodriguez Instructions Print Language: Montserratian Discharge Orders/Prescriptions Prescriptions: New furosemide 80 mg [...] CC: Dr. Marycarmen Rodriguez DO ~ Signed [facility] Work Phone: 1(624) 350-873407-27-2025 Radiology Diagnostic study [facility]07-27-2025 Radiology Diagnostic study [facility]07-27-2025 Radiology Diagnostic study [facility] 11-26-2024 Radiology Diagnostic study [facility]07-27-2025 Radiology Diagnostic study [facility]07-27-2025 Radiology Diagnostic study [facility]07-27-2025 Discharge summary Author Isael Bernabe [facility] Note Date/Time November 26, 2024 9:41 pm [facility] Medical Records Department [address] [place] [address] Emergency Department Summary 11/26/24 MR#: [id number] Acct: [id number] Name: ERIBERTO RICO Rep #:[id number] : [...] an outpatient tomorrow. He was at a [employer] today, walking down the steps of a [...] presents status post fall with chest heaviness. 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 He was given 1 [place] which he usually takes at home for pain. He was able to ambulate without difficulty. At this point in time, he is motivated for discharge. I do not feel that he requires admission at this time or observation. I feel he can be discharged to follow-upwith his cardiac catheterization tomorrow morning. Patient will continue his [place] at home and follow-up as previously directed. [...] 71.8 H Lymph % (Auto) 16.7 L Whitman % (Auto) 9.5 Eos % (Auto) 1.3 [...] IMPRESSION: No acute intracranial process. Reading Location: [facility] Cervical Spine CT 11/26/24 18:03 IMPRESSION: No acute compression deformity, fracture, or subluxation. Moderate multilevel degenerative changes of the cervical spine. Cervical ACDF with interbody spacers spanning C4-C6 without hardware complications. Reading Location: [facility] Chest X-Ray 11/26/24 18:03 IMPRESSION: Negative for edema Reading Location: [facility] Knee X-Ray 11/26/24 18:03 IMPRESSION: Degenerative changes without fracture Reading Location: [facility] Hand X-Ray 11/26/24 18:07 IMPRESSION: Degenerative changes. No visible fracture. Reading Location: [facility] Knee X-Ray 11/26/24 18:07 IMPRESSION: Joint effusion [facility] Management Discussion w/another healthcare provider: Certified Alcohol And Drug Counselor (Dr. Araujo) Discharge Plan Triage Chief Complaint: [...] with new or worsening symptoms. Print Language: Montserratian Disposition Disposition: Home, Self Care What to do if you have Problems For any increased pain, shortness of breath, bleeding, nausea or vomiting, chestpain, or any unexpected problems, contact your Primary Care Provider. Call [facility] ([phone]) or report to the closest Emergency Room. Call 911 if necessary. 11/26/242140 <Electronically signed by Isael Bernabe MD> Cosigner Signature (if applicable): CC: Dr. Marycarmen Rodriguez DO ~ Signed [facility] Work Phone: 1([phone]) 608-586007-27-2025 Hospital Discharge instructionsAdditional Instructions Have your cardiac catheterization performed tomorrow as scheduled at 8:30 in the morning. Return with new or worsening symptoms.[facility] Work Phone: 1(468) 510-302807-24-2025 Radiology Diagnostic study [facility]07-21-2025 Radiology Diagnostic study [facility]05-21-2025 Evaluation note* Diagnosis Onset Date Resolution Status Admit Date COPD (chronic obstructive pulmonary disease) chronic September 20 10:13am Diastolic heart failure chronic [facility] 2024 10:13am Obesity chronic September 20, 2024 10:13am Obstructive sleep apnea chronic [facility] 2024 10:13am Shortness of breath acute October 25, 2024 7:54am Bilateral lower extremity edema 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 October 25, 2024 7:54am Chest pain chronic October 25 7:54am Chronic kidney disease, stage 3 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 October 25, 2024 7:54am Coronary artery [...] Obstructive sleep apnea chronic J shannon2024 10:00am [facility] Work Phone: 1(151) 406-528805-21-2025 Evaluation note* Diagnosis Onset Date Resolution Status Admit Date COPD (chronic obstructive pulmonary disease) chronic September 20 10:13am Diastolic heart failure chronic M ay 2024 10:13am Obesity chronic September 20, 2024 10:13am Obstructive sleep apnea chronic M ay 2024 10:13am Shortness of breath acute October 25, 2024 7:54am Bilateral lower extremity edema 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 October 25, 2024 7:54am Chest pain chronic October 25 7:54am Chronic kidney disease, stage 3 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 October 25, 2024 7:54am Coronary artery [...] 22, 2024 10:53am Bilateral lower extremity edema 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 November 22, 2024 10:53am Chest pain chronic November 22 10:53am Chronic kidney disease, stage 3 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 November 22, 2024 10:53am Essential hypertension chronic Ju ly 2024 10:53am Hyperlipidemia chronic November 22, 2024 10:53am Obesity chronic November 22 10:53am Type 2 diabetes mellitus wit hout complications chronic November 22, 2024 10:53am 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 October 25, 2024 7:54am Chest pain chronic October 25 7:54am Chronic kidney disease, stage 3 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 October 25, 2024 7:54am Coronary artery [...] 22, 2024 10:53am Bilateral lower extremity edema 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 November 22, 2024 10:53am Chest pain chronic November 22 10:53am Chronic kidney disease, stage 3 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 November 22, 2024 10:53am Essential hypertension [...] 2024 4:59pm Chronic kidney disease, stage 3 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 November 30, 2024 4:59pm Coronary artery disease chronic J shannon 2024 4:59pm Dyslipidemia chronic November 30, 4:59pm Essential hypertension chronic Ju ly 2024 4:59pm [facility] Work Phone: 1([phone]) 667-882705-21-2025 Evaluation note* Diagnosis Onset Date Resolution Status [...] Essential hypertension chronic Ju ly 2024 4:59pm [facility] Work Phone: 1(535) 399-702103-18-2025 Procedure notey [facility] Pulmonary Services/Neurology [address] [place] [address] MR#: [id number] Acct: [id number] Name: ERIBERTO RICO Rep #:[id number] : 1945 78 From: Zen East DO Referring Dr: Marni Horn 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 Status: REG CLI Location: PSN Date: Sex: M C PSN 6 Minute Walk Test 6 Minute Walk Test 6 Minute Walk Test: 6 Minute Walk Test PSN:6-Minute Walk Test Start: 07/18/24 06:38 Freq: Status: Active Protocol: RESP.6MINW Document 07/18/24 06:00 [facility] (Rec: 07/18/24 06:47 [facility] [id number]) 6 Minute Walk Test Date Performed 07/18/24 Time Performed 06:00 Height 5 ft 9 in Weight: 230 lb Weight in Pounds 230.[address]: Marni Horn EFFICIENCY MINER Assistive device Cane used: Pre-test Oxygen Delivery [...] Dictated: 07/18/24 1032 Date Transcribed: 07/18/24 103 Net Solutions Architect: Dr. Zen East DO Signed [facility]03-03-2025 Evaluation note* Diagnosis Onset Date Resolution [...] Obstructive sleep apnea chronic ay 2024 10:13am 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 October 25, 2024 7:54am Chronic kidney disease, stage 3 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 October 25, 2024 7:54am Coronary artery disease chronic J une 2024 7:54am Essential hypertension chronic Ju ne 2024 7:54am Hyperlipidemia chronic October 25, 2024 7:54am Obesity chronic October 25 7:54am Type 2 diabetes mellitus wit hout complications chronic October 25, 2024 7:54am Chest pain inactive October 25 7:54am [facility] Work Phone: 1(492) 132-440903-03-2025 Evaluation note* Diagnosis Onset Date Resolution Status [...] 25, 2024 7:54am Bilateral lower extremity edema 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 October 25, 2024 7:54am Chest pain chronic October 25 7:54am Chronic kidney disease, stage 3 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 October 25, 2024 7:54am Coronary artery disease chronic J une 2024 7:54am Essential hypertension chronic Ju ne 2024 7:54am Hyperlipidemia chronic October 25, 2024 7:54am Obesity chronic October 25 7:54am Type 2 diabetes mellitus wit hout complications chronic October 25, 2024 7:54am [facility] Work Phone: 1([phone]) 387-258903-03-2025 Evaluation note* Diagnosis Onset Date Resolution Status Admit Date COPD (chronic obstructive pulmonary disease) chronic July 03 1:10pm Diastolic heart failure chronic arch 2024 1:10pm Obesity chronic July 03 1:10pm Obstructive sleep apnea chronic [facility] 2024 1:10pm COPD (chronic obstructive pulmonary disease) chronic September 20 10:13am Diastolic heart failure chronic [facility] 2024 10:13am Obesity chronic September 20, 2024 10:13am Obstructive sleep apnea chronic [facility] 2024 10:13am Shortness of breath acute October 25, 2024 7:54am Bilateral lower extremity edema 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 October 25, 2024 7:54am Chest pain chronic October 25 7:54am Chronic kidney disease, stage 3 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 October 25, 2024 7:54am Coronary artery disease chronic J une 2024 7:54am Essential hypertension chronic Ju ne 2024 7:54am Hyperlipidemia chronic October 25, 2024 7:54am Obesity chronic October 25 7:54am Type 2 diabetes mellitus wit hout complications chronic October 25, 2024 7:54am COPD (chronic obstructive pulmonary disease) chronic October 31 10:00am Diastolic heart failure chronic [facility] 2024 10:00am Obesity chronic October 31, 2024 10:00am Obstructive sleep apnea chronic [facility] 2024 10:00am [facility] Work Phone: 1([phone]) 165-939503-03-2025 Evaluation note* Diagnosis Onset Date Resolution Status Admit Date COPD (chronic obstructive pulmonary disease) chronic July 03 1:10pm Diastolic heart failure chronic [facility] 2024 1:10pm Obesity chronic July 03 1:10pm Obstructive sleep apnea [facility] 2024 1:10pm COPD (chronic obstructive pulmonary disease) chronic September 20 10:13am Diastolic heart failure chronic [facility] 2024 10:13am Obesity chronic September 20, 2024 10:13am Obstructive sleep apnea chronic [facility] 2024 10:13am Shortness of breath acute October 25, 2024 7:54am Bilateral lower extremity edema 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 October 25, 2024 7:54am Chest pain chronic October 25 7:54am Chronic kidney disease, stage 3 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 October 25, 2024 7:54am Coronary artery [...] Obstructive sleep apnea chronic J shannon2024 10:00am [facility] Work Phone: 1(314) 399-949412-16-2024 Evaluation note* Diagnosis Onset Date Resolution Status Admit Date DEAN (dyspnea on exertion) acute April 17, 2024 3:51pm Bilateral lower extremity edema 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 April 17, 2024 3:51pm Chronic kidney disease, stage 3 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 April 17, 2024 3:51pm Coronary artery [...] July 03 1:10pm Obstructive sleep apnea chronic [facility] 2024 1:10pm [facility] Work Phone: 1(803) 256-141811-18-2024 Evaluation note* Diagnosis Onset Date Resolution Status Admit Date Bilateral lower extremity edema 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 March 20, 2024 10:31am Chronic kidney disease, stage 3 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 March 20, 2024 10:31am Coronary artery disease chronic N ovember 2023 10:31am Essential hypertension chronic No vember 2023 10:31am Hyperlipidemia chronic March 032023 10:31am Obesity chronic March 20, 2024 10:31am Type 2 diabetes mellitus without complications chronic March 032023 10:31am DEAN (dyspnea on exertion) acute April 17, 2024 3:51pm Bilateral lower extremity edema 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 April 17, 2024 3:51pm Chronic kidney disease, stage 3 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 April 17, 2024 3:51pm Coronary artery [...] 03 1:10pm Obstructive sleep apnea chronic [facility] 2024 1:10pm [facility] Work Phone: 1([phone]) 111-355605-02-[address] Hay [facility] September 01, 2022 9:55am Note Date/Time September 01, 2022 8:37am [facility] Medical Records Department [address] [place] [address] Instructions for Home/Discharge Instructions 09/01/22 0835 MR#: [id number] Acct: [id number] Name: ERIBERTO RICO Rep #:[id number] : [...] can be placed): Home, Self Care 09/01/22 6173<Electronically signed by Jose Hay MD>Jose Hay MD CC: Dr. Marycarmen Rodriguez, DO ~ Signed [facility] Work Phone: 1(198) 375-449508-26-2021 Miscellaneous Notes* Assessment & Plan Note - [...] with any necessary intervention. documented in this [id number] History of Present illness Narrative* Eladio Ingram [...] patient is not nervous/anxious. documented in this [id number] Miscellaneous Notes* Assessment & Plan Note - Fernanda Acuña CNP - 10/09/2020 11:44 AM EDT Associated Problem(s): Coronary artery disease involving little traverse coronary artery of little traverse heart without angina pectoris Multiple previous cardiac catheterizations with intervention. Most recent cardiac caths were performed in 2018, August 03 at [facility], and August 18 at [facility] in [place]. 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 The notes from the cath at [facility] indicate that they were able [...] intolerance, and chest pressure. documented in this [id number] History of Present illness Narrative* Fernanda Acuña CNP - 10/09/2020 11:19 AM EDT [facility] [address] [facility] [address] [facility] [address] Assessment & Plan: Hypertension Blood pressure mildly [...] without CPAP use. Coronary artery disease involving little traverse coronary artery of little traverse heart without angina pectoris Multiple previous cardiac catheterizations with intervention. Most recent cardiac caths were performed in 2018, August 03 at [facility], and August 18 at [facility] in [place]. 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 The notes from the cath at [facility] indicate that they were able [...] re-establish care. He has been following at [facility] and [facility] for his cardiology care over the past 4 years. 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 Eriberto has long-standing coronary artery disease and his history is primarily obtained through records from [facility]. Eriberto is uncertain of many of [...] artery disease Diabetes mellitus (HCC) Diastolic CHF ([facility]) Hyperlipidemia Hypertension Lower leg edema Myocardial infarction ([facility]) 2009 Peripheral vascular disease ([facility]) Sleep apnea Stroke ([facility]) Testicle swelling Past Surgical History: Procedure Laterality Date CARDIAC CATHETERIZATION N/A 01/04/2015 Left Heart Cath,Stent, EF 60%; Eladio Ingram MD; [facility] PROFESS[facility] CARDIAC CATHETERIZATION N/A 01/28/2015 Left Heart Cath, EF 60%; Eladio Ingram MD; [facility] PROFESS[facility] CARDIAC CATHETERIZATION N/A 06/18/2015 Left Heart Cath, Right Upper Extremity Angiogram, EF 60%; Eladio Ingram MD; [facility] PROFESSOR CARDIAC CATHETERIZATION N/A 03/17/2016 Procedure: Left and Right Heart Cath Poss Stent; Surgeon: Eladio Ingram MD; Location: [facility]; Service: CARDIAC CATHETERIZATION 03/22/2014 EF 60% CARDIAC CATHETERIZATION 06/29/2013 EF 60% CARDIAC CATHETERIZATION 09/08/2012 EF 55% CARDIAC CATHETERIZATION 03/22/2014 EF 60% CARDIAC CATHETERIZATION Right 10/15/2016 Procedure: Left Heart Cath Possible PTCA/Stent; Surgeon: Merritt Arthur MD; Location: [facility]; Service: CHOLECYSTECTOMY CORONARY ANGIOPLASTY WITH STENT [...] ectopy, no acute changes. 50 minutes spent [id number] with patient Follow Up Ordered: Return for [...] patient is not nervous/anxious. documented in this [id number] NotePatient Outreach (COVAMN) ERIBERTO RICO ([id number]) 1945 M Date Time Provider Department 06/25/20 PETRONA TELLES During your visit today, we recorded the following information about you: Allergies As of Date: 06/25/2020 (No Known Allergies) Date Reviewed: 08/19/2018 Reviewed by: Moise Newby) ALEX Mcgraw - Fully Assessed Order(s):SARS-COVID VACCINE 1ST DOSE APPT [82198RKB] Order #: [id number] FUTURE Prescriptions as of 06/25/2020 Sig: CLOPIDOGREL [...] (HCC) [N17.9] 08/15/2018 Coronary artery disease involving little traverse smith*08/15/2018 Stented coronary artery [Z95.5] 08/15/2018 Letter Text Encounter Status:Closed by ArtCorgi, PRODUSER on 06/28/20[facility] Consult note Author Jose Hay [facility] Note Date/Time November 30, 2024 4:51 pm [facility] Medical Records Department [address] [place] [address] Consultation - Cardiology 11/30/24 1642 MR#: [id number] Acct: [id number] Name: ERIBERTO RICO Rep #:[id number] : [...] infarction. Subsequently a STEMI alert was called. 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 Marycarmen Rodriguez DO~ Signed [facility] Work Phone: Discharge summary Author Nickie Danielson [facility] Note Date/Time December 02, 2024 2:2 7pm [facility] Medical Records Department [address] [place] [address] Discharge Summary 12/02/24 1336 MR#: [id number] Acct: [id number] Name: ERIBERTO RICO Rep #:[id number] : 1945 79 From: Nickie Danielson DO PCP: Dr. Marycarmen Rodriguez DO Status:ADM IN Location: [id number] Providers Date of Admission: 11/30/24 Date [...] [facility]. [...] inferior wall. He was taken emergency to [facility] and cardiac catheterization revealed subacute stent thrombosis [...] 78.9 H, Lymph % (Auto) 7.6 L, Whitman % (Auto) 12.0 H, Eos % (Auto) [...] abnormality. 2. Age-related senescent changes. Reading Location: [facility] D/C Instructions Discharge Activity: Return to Normal [...] Kale at discharge?: Yes Done w/ Acute CA measure.: Yes Documented LVEF (%): 50 Discharge [...] Self Care Charges/Coding Visit Charges Inpatient E&M: 85494 Disch Hosp >30min 12/02/24 1427 <Electronically signed by Nickie Danielson DO> Cosigner Signature (if applicable): CC: Dr. Jose Hay MD; Dr. Nickie Danielson DO; Dr. Marycarmen Rodriguez DO~ Signed [facility] Work Phone: Evaluation note* Diagnosis Shortness [facility] breath- [facility] DEAN (dyspnea on exertion)- Primary Other dyspnea and respiratory abnormality [facility] Diagnosis DEAN (dyspnea on exertion) Other dyspnea and respiratory abnormality Essential hypertension Unspecified essential hypertension Type 2 diabetes mellitus without complication, without long-term current use of insulin (HCC) MATTHEW (obstructive sleep apnea) Obstructive sleep apnea (adult) (pediatric) Coronary artery disease involving little traverse coronary artery of little traverse heart without angina pectoris [facility] Shortness of breath [facility] Diagnosis Essential hypertension- Primary Unspecified essential hypertension 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, unspecified whether little traverse or transplanted heart (HCC) Mixed hyperlipidemia [facility] Diagnosis Chest pain, unspecified type- Primary [facility] Diagnosis Coronary artery disease involving little traverse coronary artery of little traverse heart with angina pectoris (HCC)- Primary [facility] Diagnosis Onset Date Resolution Status Dizziness acute Atherosclerotic heart diseas e little traverse coronary artery w/angina pectoris chronic CHF (congestive heart failure) chronic Essential hypertension chron ic History of coronary artery stent placement August 13, 2017 chronic Hyperlipidemia [facility] Work Phone: Evaluation note* Diagnosis Onset Date Resolution Status Dizziness acute Atherosclerotic heart diseas e little traverse coronary artery w/angina pectoris chronic CHF (congestive heart failure) chronic Essential hypertension chron ic History of coronary artery stent placement August 13, 2017 chronic Hyperlipidemia chronic Dizziness acute DEAN (dyspnea on exertion) ac makah Palpitations acute CAD (coronary artery disease) chronic CHF (congestive heart failure) chronic Essential hypertension chron ic Hyperlipidemia [facility] Work Phone: Evaluation note* Diagnosis Onset Date Resolution Status Dizziness acute Atherosclerotic heart diseas e little traverse coronary artery w/angina pectoris chronic CHF (congestive heart failure) chronic Essential hypertension chron ic History of coronary artery stent placement August 13, 2017 chronic Hyperlipidemia chronic Dizziness acute DEAN (dyspnea on exertion) ac makah Palpitations acute CAD (coronary artery disease) chronic CHF (congestive heart failure) chronic Essential hypertension chron ic Hyperlipidemia chronic DEAN (dyspnea on exertion) ac makah CAD (coronary artery disease) chronic CHF (congestive heart failure) chronic Essential hypertension chron ic Hyperlipidemia [facility] Work Phone: Evaluation note* Diagnosis Onset Date Resolution Status Dizziness acute DEAN (dyspnea on exertion) ac makah Palpitations acute CAD (coronary artery disease) chronic CHF (congestive heart failure) chronic Essential hypertension chron ic Hyperlipidemia chronic DEAN (dyspnea on exertion) ac makah CAD (coronary artery disease) chronic CHF (congestive heart failure) chronic Essential hypertension chron ic Hyperlipidemia [facility] Work Phone: Evaluation note* Diagnosis Onset Date Resolution Status Abnormal PFT acute 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.9) 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 Obstructive sleep apnea 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 COVID-19 acute DEAN (dyspnea on exertion) ac makah Atherosclerotic heart diseas e little traverse coronary artery w/angina pectoris chronic CHF (congestive heart failure) chronic Essential hypertension chron ic History of coronary artery stent placement August 13, 2017 chronic Hyperlipidemia chronic Abnormal PFT acute COVID-19 acute 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.9) 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 Obstructive sleep apnea 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 [facility] Work Phone: Evaluation note* Diagnosis Onset Date Resolution Status COVID-19 acute DEAN (dyspnea on exertion) ac makah Atherosclerotic heart diseas e little traverse coronary artery w/angina pectoris chronic CHF (congestive heart failure) chronic Essential hypertension chron ic History of coronary artery stent placement August 13, 2017 chronic Hyperlipidemia chronic Abnormal PFT acute COVID-19 acute 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.9) 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 Obstructive sleep apnea 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 [facility] Work Phone: Evaluation note* Diagnosis Onset Date Resolution Status Angina pectoris chronic Chronic kidney disease chron ic Coronary artery disease 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 Diabetes mellitus chronic Dyslipidemia chronic Essential hypertension chron ic Obesity chronic [facility] Work Phone: Evaluation note* Diagnosis Onset Date Resolution Status Angina pectoris chronic Chronic kidney disease chron ic Coronary artery disease 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 Diabetes mellitus chronic Dyslipidemia chronic Essential hypertension chron ic Obesity chronic Left-sided weakness acute Chest pain resolved Fatigue acute Syncope acute Coronary artery disease 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 Dyslipidemia chronic Essential hypertension chron ic [facility] Work Phone: Evaluation note* Diagnosis Onset Date Resolution Status Left-sided weakness acute Chest pain resolved Fatigue acute Syncope acute Coronary artery disease 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 Dyslipidemia chronic Essential hypertension chron ic Angina pectoris chronic Bilateral lower extremity edema chronic Chronic kidney disease, stage 3 chronic Coronary artery disease 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 Essential hypertension chron ic Hyperlipidemia chronic Type 2 diabetes mellitus without complications [facility] Work Phone: Evaluation noteNo assessment information available [facility] Work Phone: Hospital Discharge instructionsAmbulatory Orders* Phase II, Outpatient Cardiac Rehab Location: None Selected [facility] Work Phone: Progress note Author Dr. Hay [facility] September 01, 2022 9:53am Note Date/Time September 01, 2022 9:51am [facility] Medical Records Department [address] [place] [address] [place] [address] Progress Note 09/01/22 0950 MR#: [id number] Acct: [id number] Name: ERIBERTO RICO Rep #:[id number] : 1945 77 From: Jose Hay MD PCP: Dr. Marycarmen Rodriguez, DO Status:ADM EDMUND Location: [place] [address]- Progress Note Reports complete resolution of angina. Denies any complaints today. Right groin stable. No hematoma or bruit. Right radial pulse 2+. Mildly decreased platelet count noted. Repeat CBC in 2 days. Also repeat complete metabolic panel in 2 days. Discharge home. Follow-up as outpatient. 09/01/22 0953 <Electronically signed by Jose Hay MD> Jose Hay MD Cosigner Signature (if applicable): CC: ~ Signed [facility] Work Phone: Reason for referral (narrative)No reason for referral information availableWSelect [facility] Work Phone: Assessments Diagnosis MATTHEW (obstructive sleep apnea ) - Primary Obstructive sleep apnea (adult) (pediatric) Coronary artery disease invo lving little traverse coronary artery of little traverse heart without angina pectoris Summary Purpose Family [...] Documents on File Type Date Recorded Patient Facility Designer Expl anation Advance Directives and Living Will [...] Documents on File Type Date Recorded Patient Facility Designer Expl anation Advance Directives and Livin g Will 10/04/2020 12:00 AM Documents on File Type Date Recorded Patient Facility Designer Expl anation Advance Directives and Living Will [...] Documents on File Type Date Recorded Patient Facility Designer Expl anation Advance Directives and Livin g Will 10/15/2020 12:46 PM Documents on File Type Date Recorded Patient Facility Designer Expl anation Advance Directives and Livin g Will 10/15/2020 12:46 PM Documents on File Type Date Recorded Patient Facility Designer Expl anation Advance Directives and Livin g [...] Will Yes June 10 4:44pm Power of Watch Leader Yes June 10, 2021 4:44pm Advance Directive Response Recorded Date/ Time Name of Medical Power of Watch Leader Jennie- November 16, 2021 1:06pm Advance Directives No August 13 018 7:02am Living Will Yes November 16, 2021 1:06pm Power of Watch Leader Yes November 16 1:06pm Advance Directive Response Recorded Date/ Time Advance Directives No August 13 018 6:02am Living Will Yes November 16, 2021 12:06pm Power of Watch Leader Yes November 16 12:06pm Advance Directive Response Recorded Date/ Time Advance Directives No August 13 018 7:02am Living Will Yes November 16, 2021 1:06pm Power of Watch Leader Yes November 16 1:06pm Advance Directive Response Recorded Date/ Time Advance Directives on File Yes August 312022 7:47am Name of Medical Power of Watch Leader Mike escalera August 31, 2022 7:47am Advance Directives Yes August 31, 2022 7:47am Living Will Yes August 31, 2022 7: 47am Power of Watch Leader Yes August 31, 2022 7:47am Advance Directive Response Recorded Date/ Time Advance Directives on File Yes August 312022 7:47am Name of Medical Power of Watch Leader Mike escalera August 31, 2022 7:47am Advance Directives Yes August 31, 2022 7:47am Living Will No September 18, 2022 2:11am Power of Watch Leader No September 18, 2022 12:11am Advance Directive Response Recorded Date/ Time Advance Directives on File Yes August 312022 7:47am Name of Medical Power of Watch Leader Mike escalera August 31, 2022 7:47am Advance Directives on File No Augus t 2022 7:51am Name of Medical Power of Watch Leader MIKE RICO December 21, 2022 7:51am Advance Directives Yes December 21, 2022 7:51am Living Will Yes December 21 7:51am Power of Watch Leader Yes December 21 023 7:51am Advance Directive Response Recorded Date/ Time Advance Directives on File No Augus t 2022 7:51am Name of Medical Power of Watch Leader MIKE RICO December 21, 2022 7:51am Advance Directives Yes December 21, 2022 7:51am Living Will Yes December 21 7:51am Power of Watch Leader Yes December 21 2 023 7:51am Advance Directive Response Recorded Date/ Time Advance Directives Yes December 21, 2022 6:51am Living Will Yes December 21 6:51am Power of Watch Leader Yes December 21 2 023 6:51am Advance Directive Response Recorded Date/ Time Living Will No October 12, 2023 6:54pm Power of Watch Leader No October 11 6:54pm Advance Directives Yes December 21, 2022 7:51am Advance Directive Response Recorded Date/ Time Advance Directives Yes December 21, 2022 7:51am Advance Directive Response Recorded Date/ Time Do you have a Healthcare Power of Watch Leader? Yes November 26, 2024 5:44pm Advance Directives Yes December 21, 2022 7:51am Advance Directive Response Recorded Date/ Time Advance Directives on File Yes November 27, 2024 8:44am Living Will Yes November 27, 2024 8:44am Do you have a Healthcare Pow er of Watch Leader? Yes November 27, 2024 8:44am Name of Medical Power of Watch Leader Jennie Bodag er- spouse November 27, 2024 8:44am Advance Directives Yes November 27 8:44am Do you have a Healthcare Pow er of Watch Leader? Yes November 26, 2024 5:44pm Advance Directive Response Recorded Date/ Time Advance Directives on File Yes November 27, 2024 8:44am Living Will Yes November 27, 2024 8:44am Do you have a Healthcare Pow er of Watch Leader? Yes November 27, 2024 8:44am Name of Medical Power of Watch Leader Jennie Popeag er- spouse November 27, 2024 8:44am Advance Directives Yes November 27 8:44am Do you have a Healthcare Pow er of Watch Leader? Yes November 26, 2024 5:44pm Do you have a Healthcare Pow er of Watch Leader? Yes November 30, 2024 5:22pm Reason for Referral Status Reason Specialty Diagnoses / Procedures Referred By Contact Referred To Contact New Request Cardiology Diagnoses Shortness of breath Procedures Echocardiogram complete Eladio Ingram MD [address] [facility] [address] [place] [address] Status Reason Specialty Diagnoses / Procedures Referred By Contact Referred To Contact Closed Cardiology Diagnoses DEAN (dyspnea on exertion) Procedures ECG 12 lead Fernanda Acuña, DRUG ROOM CLERK [address] [place] [address] Specialty Diagnoses / Procedures Referred By Contac t Referred To Contact Radiology Diagnoses Coronary artery disease involving little traverse coronary artery of little traverse heart with angina pectoris (HCC) Procedures CT Angiogram Aorta Chest Abdomen Pelvis Eladio Ingram MD [address] [facility] [address] [place] [address] Referral ID Status Reason Start Date Expiration Date V isits Requested Visits Authorized [id number] New Request 01/10/2021 01/10/2022 1 1 Chief Complaint and Reason for Visit Chief Complaint R. LOWER LID LESION RLQ ABD PAIN bleeding from ear, chest pain OVERDUE FOR OV CHEST PAIN CHEST PAIN Reason for Visit Dizziness Atherosclerotic heart disease little traverse coronary artery w/angina pectoris CHF (congestive heart failure) Essential hypertension History of coronary artery stent placement Hyperlipidemia Chief Complaint bleeding from ear, c hest pain OVERDUE FOR OV CHEST PAIN CHEST PAIN 6-8 WK F/U DYSPNEA Reason for Visit Dizziness Atherosclerotic heart disease little traverse coronary artery w/angina pectoris CHF (congestive heart failure) Essential hypertension History of coronary artery stent placement Hyperlipidemia Dizziness DEAN (dyspnea on exertion) Palpitations CAD (coronary artery disease) CHF (congestive heart failure) Essential hypertension Hyperlipidemia Chief Complaint OVERDUE FOR OV CHEST PAIN CHEST PAIN 6-8 WK F/U DYSPNEA Reason for Visit Dizziness Atherosclerotic heart disease little traverse coronary artery w/angina pectoris CHF (congestive heart failure) Essential hypertension History of coronary artery stent placement Hyperlipidemia Dizziness DEAN (dyspnea on exertion) Palpitations CAD (coronary artery disease) CHF (congestive heart failure) Essential hypertension Hyperlipidemia Chief Complaint OVERDUE FOR OV CHEST PAIN CHEST PAIN 6-8 WK F/U DYSPNEA CHEST PAIN 2 M FU E ORDERS Reason for Visit Dizziness Atherosclerotic heart disease little traverse coronary artery w/angina pectoris CHF (congestive heart [...] DEAN (dyspnea on exertion) Atherosclerotic heart disease little traverse coronary artery w/angina pectoris CHF (congestive heart failure) Essential hypertension History of coronary artery stent placement Hyperlipidemia Abnormal PFT COVID-19 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.9) Obstructive sleep apnea Chief Complaint SORE THROAT, COUGH, FEVER, BODY ACHE 5 MO F/U 3 M FU DYSPNEA/SOB Reason for Visit COVID-19 DEAN (dyspnea on exertion) Atherosclerotic heart disease little traverse coronary artery w/angina pectoris CHF (congestive heart [...] CP CVA, CP CVA, CP request by EFFICIENCY MINER at [facility] for angina L.L. E-ORDER SYNCOPE Reason for Visit Angina pectoris Chronic kidney disease Coronary artery disease Diabetes mellitus Dyslipidemia Essential hypertension Obesity Left-sided weakness Chest pain Fatigue Syncope Coronary artery disease Dyslipidemia Essential hypertension Chief Complaint CAD Amb Documentation EKG Coronary artery disease Amb Documentation CVA, CP CVA, CP CP ADMIT CVA, CP CVA, CP CVA, CP CVA, CP request by EFFICIENCY MINER at [facility] for angina L.L. E-ORDER SYNCOPE 2 M [...] CP CVA, CP CVA, CP request by EFFICIENCY MINER at [facility] for angina L.L. E-ORDER SYNCOPE 2 M [...] section and content) DATE CREATED AUTHOR 09/24/2018 [facility] DATE CREATED AUTHOR AUTHOR'S ORGANIZ ATION 12/20/2020 [facility] DATE CREATED AUTHOR AUTHOR'S ORGANIZ ATION 01/11/2021 [facility] DATE CREATED AUTHOR AUTHOR'S ORGANIZ ATION 02/28/[address] [facility] DATE CREATED AUTHOR AUTHOR'S ORGANIZ ATION 04/20/2021 [facility] DATE CREATED AUTHOR AUTHOR'S ORGANIZ ATION 06/22/2021 [facility] DATE CREATED AUTHOR AUTHOR'S ORGANIZ ATION 12/02/2024 [facility] Reason for Visit (unrecogniz ed section and content) Reason Comments Chest Pain SOB Status Reason Specialty Diagnoses / Procedures Referred By Contact Referred To Contact Closed Cardiology Diagnoses DEAN (dyspnea on exertion) Procedures ECG 12 lead Fernanda Acuña, DRUG ROOM CLERK [address] [place] [address] Status Reason Specialty Diagnoses / Procedures Referre d By Contact Referred To Contact Closed Cardiology Diagnoses Shortness of breath Procedures Echocardiogram complete w contrast Echocardiogram complete Eladio Ingram MD [address] [facility] [address] [place] [address] Reason Comments Initial Visit (Intake) Specialty Diagnoses / Procedures Referred By Contac t Referred To Contact Cardiology Diagnoses 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, unspecified whether little traverse or transplanted heart (HCC) Marycarmen Rodriguez DO [address] [place] [id number] Referral ID Status Reason Start Date Expiration Date V isits Requested Visits Authorized [id number] Closed Specialty Services Required/Krupa ent's Best Interest 10/04/2020 10/04/2021 1 1 Care Teams (unrecognized sec tion and content) Director Of Planning Relationship Specialty Start Date End Date Marycarmen Rodriguez [facility] [place] [address] PCP - General Family Medicine 12/17/16 Director Of Planning Relationship Specialty Start Date End Date Marycarmen Rodriguez [facility] [place] [address] PCP - General Family Medicine 12/17/16 Director Of Planning Relationship Specialty Start Date End Date Marycarmen Rodriguez [address] [place], [place] [id number] PCP - General Family Medicine 12/17/16 Director Of Planning Relationship Specialty Start Date End Date Marycarmen Rodriguez DO [address] [place], [place] [id number] PCP - General Family Medicine 12/17/16 Team Status: Active Member Role Status Dates Dr. Marycarmen Rodriguez DO Family Provider Active Marycaremn Rodriguez Primary Care Provider Active Team Status: Inactive Member Role Status Dates Dr. Marycarmen Rodriguez DO Primary Care Provider, Referrin g Provider Active Luz Elena Mckeon EFFICIENCY MINER, EFFICIENCY MINER-C Attending Provider Active Team Status: Inactive Member [...] Primary Care Provider Active Luz Elena Mckeon EFFICIENCY MINER, EFFICIENCY MINER-C Attending Provider Active Team Status: Inactive Member Role Status Dates Dr. Marycarmen Rodriguez DO Primary Care Provider Active Luz Elena Mckeon EFFICIENCY MINER, EFFICIENCY MINER-C Attending Provider, Referring P rovider Active Team [...] Primary Care Provider Active Luz Elena Mckeon EFFICIENCY MINER, EFFICIENCY MINER-C Attending Provider, Referring P rovider Active Team [...] Primary Care Provider Active Luz Elena Mckeon EFFICIENCY MINER, EFFICIENCY MINER-C Attending Provider Active Team Status: Inactive Member [...] 2024 End: April 17, 2024 Gustabo Pérez EFFICIENCY MINER, EFFICIENCY MINER-C Attending Provider Active S tart: April 17, 2024 End: April 17, 2024 Team Status: Inactive Member Role Status Dates Dr. Marycarmen Rodriguez DO Primary Care Provider Active Start: April 17, 2024 End: April 17, 2024 Gustabo Pérez EFFICIENCY MINER, EFFICIENCY MINER-C Attending Provider Active S tart: April 17, 2024 End: April 17, 2024 Gustabo Pérez EFFICIENCY MINER, EFFICIENCY MINER-C Referring Provider Active S tart: April 17, [...] 2024 End: July 03, 2024 Marni Horn EFFICIENCY MINER, EFFICIENCY MINER-C Attending Provider Active Start: July 03, 2024 End: July 03, 2024 Team Status: Active Member Role Status Dates Dr. Marycarmen Rodriguez DO Primary Care Provider Active Start: July 07, 2024 Marni Horn EFFICIENCY MINER, EFFICIENCY MINER-C Attending Provider Active Start: July 07, 2024 Marni Horn EFFICIENCY MINER, EFFICIENCY MINER-C Referring Provider Active Start: July 07, 2024 Team Status: Inactive Member Role Status Dates Dr. Marycarmen Rodriguez DO Primary Care Provider Active Start: July 07, 2024 End: July 07, 2024 Marni Horn EFFICIENCY MINER, EFFICIENCY MINER-C Attending Provider Active Start: July 07, 2024 End: July 07, 2024 Marni Horn EFFICIENCY MINER, EFFICIENCY MINER-C Referring Provider Active Start: July 07, 2024 End: July 07, 2024 Team Status: Active Member Role Status Dates Dr. Marycarmen Rodriguez DO Primary Care Provider Active Start: July 17, 2024 Marni Horn EFFICIENCY MINER, EFFICIENCY MINER-C Attending Provider Active Start: July 17, 2024 Marni Horn EFFICIENCY MINER, EFFICIENCY MINER-C Referring Provider Active Start: July 17, 2024 Team Status: Active Member Role Status Dates Dr. Marycarmen Rodriguez DO Primary Care Provider Active Start: July 18, 2024 Marni Horn EFFICIENCY MINER, EFFICIENCY MINER-C Attending Provider Active Start: July 18, 2024 Marni Horn EFFICIENCY MINER, EFFICIENCY MINER-C Referring Provider Active Start: July 18, 2024 Team Status: Active Member Role Status Dates Dr. Marycarmen Rodriguez DO Primary Care Provider Active Start: July 18, 2024 Marni Horn EFFICIENCY MINER, EFFICIENCY MINER-C Referring Provider Active Start: July 18, 2024 Marni Horn EFFICIENCY MINER, EFFICIENCY MINER-C Other Provider Active Start: July 18, 2024 Dr. Zen East DO Attending Provider Active S tart: July 18, 2024 Team Status: Inactive Member Role Status Dates Dr. Marycarmen Rodriguez DO Primary Care Provider Active Start: July 17, 2024 End: July 17, 2024 Marni Horn EFFICIENCY MINER, EFFICIENCY MINER-C Attending Provider Active Start: July 17, 2024 End: July 17, 2024 Marni Horn EFFICIENCY MINER, EFFICIENCY MINER-C Referring Provider Active Start: July 17, 2024 End: July 17, 2024 Team Status: Inactive Member Role Status Dates Dr. Marycarmen Rodriguez DO Primary Care Provider Active Start: July 18, 2024 End: July 18, 2024 Marni Horn EFFICIENCY MINER, EFFICIENCY MINER-C Attending Provider Active Start: July 18, 2024 End: July 18, 2024 Marni Horn EFFICIENCY MINER, EFFICIENCY MINER-C Referring Provider Active Start: July 18, 2024 End: July 18, 2024 Team Status: Inactive Member Role Status Dates Dr. Marycarmen Rodriguez DO Primary Care Provider Active Start: August 03, 2024 End: August 03, 2024 Marni Horn EFFICIENCY MINER, EFFICIENCY MINER-C Attending Provider Active Start: August 03, 2024 End: August 03, 2024 Marni Horn EFFICIENCY MINER, EFFICIENCY MINER-C Referring Provider Active Start: August 03, 2024 [...] 2024 End: September 20, 2024 Maren Olivas EFFICIENCY MINER-C Attending Provider Active Start: September 20, 2024 End: September 20, 2024 Maren Olivas NP-C Referring Provider Active Start: September 20, 2024 End: September 20, 2024 Team Status: Active Member Role Status Dates Dr. Marycarmen Rodriguez DO Primary Care Provider Active Start: September 22, 2024 Marni Horn NP, EFFICIENCY MINER-C Attending Provider Active Start: September 22, 2024 Team Status: Inactive Member Role Status Dates Dr. Marycarmen Rodriguez DO Primary Care Provider Active Start: September 22, 2024 End: September 22, 2024 Marni Horn EFFICIENCY MINER, EFFICIENCY MINER-C Attending Provider Active Start: September 22, 2024 [...] S tart: July 17, 2024 Marni Horn EFFICIENCY MINER, EFFICIENCY MINER-C Referring Provider Active Start: July 17, 2024 Team Status: Inactive Member Role Status Dates Dr. Marycarmen Rodriguez DO Primary Care Provider Active Start: October 18, 2024 End: October 18, 2024 Dr. Brooks Carpenter MD Attending Provider Active Start: October 18, 2024 End: October 18, 2024 Dr. Brooks Carpenter MD Referring Provider Active Start: October 18, 2024 End: October 18, 2024 Gustabo Pérez EFFICIENCY MINER, EFFICIENCY MINER-C Other Provider Active Start : October 18, 2024 End: October 18, 2024 Team Status: Active Member Role Status Dates Dr. Marycarmen Rodriguez DO Primary Care Provider Active Start: October 18, 2024 Marni Horn NP, EFFICIENCY MINER-C Attending Provider Active Start: October 18, 2024 Team Status: Inactive Member Role Status Dates Dr. Marycarmen Rodriguez DO Primary Care Provider Active Start: October 25, 2024 End: October 25, 2024 Dr. Marycarmen Rodriguez DO Referring Provider Active Start: October 25, 2024 End: October 25, 2024 Gustabo Pérez EFFICIENCY MINER, EFFICIENCY MINER-C Attending Provider Active S tart: October 25, 2024 End: October 25, 2024 Team Status: Inactive Member Role Status Dates Dr. Marycarmen Rodriguez DO Primary Care Provider Active Start: October 18, 2024 End: October 18, 2024 Marni Horn EFFICIENCY MINER, EFFICIENCY MINER-C Attending Provider Active Start: October 18, 2024 [...] 2024 End: July 03, 2024 Marni Horn EFFICIENCY MINER, EFFICIENCY MINER-C Attending Provider Active Start: July 03, 2024 End: July 03, 2024 Team Status: Inactive Member Role/Relationship Status Dates Dr. Marycarmen Rodriguez DO Primary Care Provider Active Start: July 07, 2024 End: July 07, 2024 Marni Horn EFFICIENCY MINER, EFFICIENCY MINER-C Attending Provider Active Start: July 07, 2024 End: July 07, 2024 Marni Horn EFFICIENCY MINER, EFFICIENCY MINER-C Referring Provider Active Start: July 07, 2024 End: July 07, 2024 Team Status: Inactive Member Role/Relationship Status Dates Dr. Marycarmen Rodriguez DO Primary Care Provider Active Start: July 17, 2024 End: July 17, 2024 Marni oHrn EFFICIENCY MINER, EFFICIENCY MINER-C Attending Provider Active Start: July 17, 2024 End: July 17, 2024 Marni Horn EFFICIENCY MINER, EFFICIENCY MINER-C Referring Provider Active Start: July 17, 2024 End: July 17, 2024 Team Status: Active Member Role/Relationship Status Dates Dr. Marycarmen Rodriguez DO Primary Care Provider Active Start: July 17, 2024 Dr. Zen East DO Attending Provider Active S tart: July 17, 2024 Marni Horn EFFICIENCY MINER, EFFICIENCY MINER-C Referring Provider Active Start: July 17, 2024 Team Status: Inactive Member Role/Relationship Status Dates Dr. Marycarmen Rodriguez DO Primary Care Provider Active Start: July 18, 2024 End: July 18, 2024 Marni Horn EFFICIENCY MINER, EFFICIENCY MINER-C Attending Provider Active Start: July 18, 2024 End: July 18, 2024 Marni Horn EFFICIENCY MINER, EFFICIENCY MINER-C Referring Provider Active Start: July 18, 2024 End: July 18, 2024 Team Status: Active Member Role/Relationship Status Dates Dr. Marycarmen Rodriguez DO Primary Care Provider Active Start: July 18, 2024 Marni Horn EFFICIENCY MINER, EFFICIENCY MINER-C Referring Provider Active Start: July 18, 2024 Marni Horn EFFICIENCY MINER, EFFICIENCY MINER-C Other Provider Active Start: July 18, 2024 Dr. Zen East DO Attending Provider Active S tart: July 18, 2024 Team Status: Inactive Member Role/Relationship Status Dates Dr. Marycarmen Rodriguez DO Primary Care Provider Active Start: August 03, 2024 End: August 03, 2024 Marni Horn EFFICIENCY MINER, EFFICIENCY MINER-C Attending Provider Active Start: August 03, 2024 End: August 03, 2024 Marni Horn EFFICIENCY MINER, EFFICIENCY MINER-C Referring Provider Active Start: August 03, 2024 [...] End: September 22, 2024 Marni Horn NP EFFICIENCY MINER-C Attending Provider Active Start: September 22, 2024 [...] 2024 End: October 18, 2024 Gustabo Pérez EFFICIENCY MINER, EFFICIENCY MINER-C Other Provider Active Start : October 18, 2024 End: October 18, 2024 Team Status: Inactive Member Role/Relationship Status Dates Dr. Marycarmen Rodriguez DO Primary Care Provider Active Start: October 18, 2024 End: October 18, 2024 Marni Horn EFFICIENCY MINER, EFFICIENCY MINER-C Attending Provider Active Start: October 18, 2024 End: October 18, 2024 Team Status: Inactive Member Role/Relationship Status Dates Dr. Marycarmen Rodriguez DO Primary Care Provider Active Start: October 25, 2024 End: October 25, 2024 Dr. Marycarmen Rodriguez DO Referring Provider Active Start: October 25, 2024 End: October 25, 2024 Gustabo Pérez EFFICIENCY MINER, EFFICIENCY MINER-C Attending Provider Active S tart: October 25, 2024 End: October 25, 2024 Team Status: Active Member Role/Relationship Status Dates Dr. Marycarmen Rodriguez DO Primary Care Provider Active Start: October 26, 2024 Marni Horn EFFICIENCY MINER, EFFICIENCY MINER-C Attending Provider Active Start: October 26, 2024 Marni Horn EFFICIENCY MINER, EFFICIENCY MINER-C Referring Provider Active Start: October 26, 2024 Team Status: Inactive Member Role/Relationship Status Dates Dr. Marycarmen Rodriguez DO Primary Care Provider Active Start: October 31, 2024 End: October 31, 2024 Dr. Marycarmen Rodriguez DO Referring Provider Active Start: October 31, 2024 End: October 31, 2024 Maren Olivas EFFICIENCY MINER-C Attending Provider Active Start: October 31, 2024 End: October 31, 2024 Team Status: Inactive Member Role/Relationship Status Dates Dr. Marycarmen Rodriguez DO Primary Care Provider Active Start: October 26, 2024 End: October 26, 2024 Marni Horn EFFICIENCY MINER, EFFICIENCY MINER-C Attending Provider Active Start: October 26, 2024 End: October 26, 2024 Marni Horn EFFICIENCY MINER, EFFICIENCY MINER-C Referring Provider Active Start: October 26, 2024 End: October 26, 2024 Team Status: Inactive Member Role/Relationship Status Dates Dr. Marycarmen Rodriguez DO Primary Care Provider Active Start: August 03, 2024 End: August 03, 2024 Marni Horn EFFICIENCY MINER, EFFICIENCY MINER-C Attending Provider Active Start: August 03, 2024 End: August 03, 2024 Marni Horn NP, EFFICIENCY MINER-C Referring Provider Active Start: August 03, 2024 End: August 03, 2024 Team Status: Inactive Member Role/Relationship Status Dates Dr. Marycarmen Rodriguez DO Primary Care Provider Active Start: September 20, 2024 End: September 20, 2024 Dr. Marycarmen Rodriguez DO Referring Provider Active Start: September 20, 2024 End: September 20, 2024 Maren Olivas EFFICIENCY MINER-C Attending Provider Active Start: September 20, 2024 End: September 20, 2024 Team Status: Inactive Member Role/Relationship Status Dates Dr. Marycarmen Rodriguez DO Primary Care Provider Active Start: September 20, 2024 End: September 20, 2024 Maren Olivas NP-C Attending Provider Active Start: September 20, 2024 End: September 20, 2024 Maren Olivas EFFICIENCY MINER-C Referring Provider Active Start: September 20, 2024 End: September 20, 2024 Team Status: Inactive Member Role/Relationship Status Dates Dr. Marycarmen Rodriguez DO Primary Care Provider Active Start: September 22, 2024 End: September 22, 2024 Marni Horn NP, EFFICIENCY MINER-C Attending Provider Active Start: September 22, 2024 [...] End: October 18, 2024 Gustabo Pérez NP, EFFICIENCY MINER-C Other Provider Active Start : October 18, 2024 End: October 18, 2024 Team Status: Inactive Member Role/Relationship Status Dates Dr. Marycarmen Rodriguez DO Primary Care Provider Active Start: October 18, 2024 End: October 18, 2024 Marni Horn EFFICIENCY MINER, EFFICIENCY MINER-C Attending Provider Active Start: October 18, 2024 End: October 18, 2024 Team Status: Inactive Member Role/Relationship Status Dates Dr. Marycarmen Rodriguez DO Primary Care Provider Active Start: October 25, 2024 End: October 25, 2024 Dr. Marycarmen Rodriguez DO Referring Provider Active Start: October 25, 2024 End: October 25, 2024 Gustabo Pérez EFFICIENCY MINER, EFFICIENCY MINER-C Attending Provider Active S tart: October 25, 2024 End: October 25, 2024 Team Status: Inactive Member Role/Relationship Status Dates Dr. Marycarmen Rodriguez DO Primary Care Provider Active Start: October 26, 2024 End: October 26, 2024 Marni Horn EFFICIENCY MINER, EFFICIENCY MINER-C Attending Provider Active Start: October 26, 2024 End: October 26, 2024 Marni Horn EFFICIENCY MINER, EFFICIENCY MINER-C Referring Provider Active Start: October 26, 2024 [...] Active Start: November 10, 2024 Gustabo Pérez EFFICIENCY MINER, EFFICIENCY MINER-C Attending Provider Active S tart: November 10, 2024 Gustabo Pérez EFFICIENCY MINER, EFFICIENCY MINER-C Referring Provider Active S tart: November 10, 2024 Team Status: Active Member Role/Relationship Status Dates Dr. Marycarmen Rodriguez DO Primary Care Provider Active Start: November 10, 2024 Dr. Lance Rodriguez MD Attending Provider Active S tart: November 10, 2024 Gustabo Pérez EFFICIENCY MINER, EFFICIENCY MINER-C Referring Provider Active S tart: November 10, [...] Active Start: November 13, 2024 Gustabo Pérez EFFICIENCY MINER, EFFICIENCY MINER-C Referring Provider Active S tart: November 13, 2024 Gustabo Pérez EFFICIENCY MINER, EFFICIENCY MINER-C Other Provider Active Start : November 13, 2024 Dr. Jose Hay MD Attending Provider Active Start: November 13, 2024 Team Status: Inactive Member Role/Relationship Status Dates Dr. Marycarmen Rodriguez DO Primary Care Provider Active Start: November 10, 2024 End: November 10, 2024 Gustabo Pérez EFFICIENCY MINER, EFFICIENCY MINER-C Attending Provider Active S tart: November 10, 2024 End: November 10, 2024 Gustabo Pérez EFFICIENCY MINER, EFFICIENCY MINER-C Referring Provider Active S tart: November 10, [...] 2024 End: November 22, 2024 Gustabo Pérez EFFICIENCY MINER, EFFICIENCY MINER-C Attending Provider Active S tart: November 22, [...] Active Start: November 22, 2024 Gustabo Pérez EFFICIENCY MINER, EFFICIENCY MINER-C Attending Provider Active S tart: November 22, 2024 Gustabo Pérez EFFICIENCY MINER, EFFICIENCY MINER-C Referring Provider Active S tart: November 22, [...] 2024 End: November 22, 2024 Gustabo Pérez EFFICIENCY MINER, EFFICIENCY MINER-C Attending Provider Active S tart: November 22, 2024 End: November 22, 2024 Gustabo Pérez EFFICIENCY MINER, EFFICIENCY MINER-C Referring Provider Active S tart: November 22, 2024 End: November 22, 2024 Team Status: Active Member Role/Relationship Status Dates Dr. Marycarmen Rodriguez DO Primary Care Provider Active Start: November 30, 2024 Isael Bernabe MD Emergency Provider Active Star t: November 30, 2024 Dr. Jose Hay MD Attending Provider Active Start: November 30, 2024 Dr. Joes Hay MD Referring Provider Active Start: November [...] 2024 End: September 22, 2024 Marni Horn EFFICIENCY MINER, EFFICIENCY MINER-C Attending Provider Active Start: September 22, 2024 [...] 2024 End: October 18, 2024 Gustabo Pérez EFFICIENCY MINER, EFFICIENCY MINER-C Other Provider Active Start : October 18, 2024 End: October 18, 2024 Team Status: Inactive Member Role/Relationship Status Dates Dr. Marycarmen Rodriguez DO Primary Care Provider Active Start: October 18, 2024 End: October 18, 2024 Marni Horn EFFICIENCY MINER, EFFICIENCY MINER-C Attending Provider Active Start: October 18, 2024 End: October 18, 2024 Team Status: Inactive Member Role/Relationship Status Dates Dr. Marycarmen Rodriguez DO Primary Care Provider Active Start: October 25, 2024 End: October 25, 2024 Dr. Marycarmen Rodriguez DO Referring Provider Active Start: October 25, 2024 End: October 25, 2024 Gustabo Pérez EFFICIENCY MINER, EFFICIENCY MINER-C Attending Provider Active S tart: October 25, 2024 End: October 25, 2024 Team Status: Inactive Member Role/Relationship Status Dates Dr. Marycarmen Rodriguez DO Primary Care Provider Active Start: October 26, 2024 End: October 26, 2024 Marni Horn EFFICIENCY MINER, EFFICIENCY MINER-C Attending Provider Active Start: October 26, 2024 End: October 26, 2024 Marni Horn EFFICIENCY MINER, EFFICIENCY MINER-C Referring Provider Active Start: October 26, 2024 End: October 26, 2024 Team Status: Inactive Member Role/Relationship Status Dates Dr. Marycarmen Rodriguez DO Primary Care Provider Active Start: October 31, 2024 End: October 31, 2024 Dr. Marycarmen Rodriguez DO Referring Provider Active Start: October 31, 2024 End: October 31, 2024 Maren Olivas EFFICIENCY MINER-C Attending Provider Active Start: October 31, 2024 [...] 2024 End: November 10, 2024 Gustabo Pérez EFFICIENCY MINER, EFFICIENCY MINER-C Attending Provider Active S tart: November 10, 2024 End: November 10, 2024 Gustabo Pérez EFFICIENCY MINER, EFFICIENCY MINER-C Referring Provider Active S tart: November 10, 2024 End: November 10, 2024 Team Status: Active Member Role/Relationship Status Dates Dr. Marycarmen Rodriguez DO Primary Care Provider Active Start: November 10, 2024 Dr. Lance Rodriguez MD Attending Provider Active S tart: November 10, 2024 Gustabo Pérez EFFICIENCY MINER, EFFICIENCY MINER-C Referring Provider Active S tart: November 10, [...] Active Start: November 13, 2024 Gustabo Pérez EFFICIENCY MINER, EFFICIENCY MINER-C Referring Provider Active S tart: November 13, 2024 Gustabo Pérez EFFICIENCY MINER, EFFICIENCY MINER-C Other Provider Active Start : November 13, [...] 2024 End: November 22, 2024 Gustabo Pérez EFFICIENCY MINER, EFFICIENCY MINER-C Attending Provider Active S tart: November 22, 2024 End: November 22, 2024 Team Status: Inactive Member Role/Relationship Status Dates Dr. Marycarmen Rodriguez DO Primary Care Provider Active Start: November 22, 2024 End: November 22, 2024 Gustabo Pérez EFFICIENCY MINER, EFFICIENCY MINER-C Attending Provider Active S tart: November 22, 2024 End: November 22, 2024 Gustabo Pérez EFFICIENCY MINER, EFFICIENCY MINER-C Referring Provider Active S tart: November 22, [...] 30, 2024 End: December 02, 2024 Elvis Olvera MD Other Provider Active Start: 2024 End: [...] BE BASED ON THE PRIMARY CLINICAL RECORDS. [facility] [employer] [facility]. provides no warranty or guarantee of the accuracy or completeness of information in this document.
[2024-12-02 20:47] LABS: Anion Gap 14 (5-15); BUN 52 mg/dL (4-19); BUN/Creat Ratio 18.0 RATIO (10-20); Calcium,Total 9.1 mg/dL (7.6-11.0); Carbon Dioxide 20.5 mmol/L (21.0-32.0); Chloride 96 mmol/L (98-108); Estimated Creatinine Clearance 25.31 ml/min (50-250); Glucose 175 mg/dL (70-99); Partial Thromboplast Time 31.6 Seconds (24.1-36.2); Potassium 4.6 mmol/L (3.3-5.1); Prothrombin Time (Protime)PT. 14.6 SECONDS (11.7-14.9)
--- NOTE | 2024-12-02 20:50 | PCM.HP.STD ---
[facility] Date of Admission: 12/02/24 Date of Service: 12/02/24 Chief Complaint: Chest Pain with STEMI alert. HPI Narrative GERRY RICO, is a 79 M with a past medical history of essential hypertension; on amlodipine, losartan, metoprolol, spironolactone and furosemide, hyperlipidemia; on atorvastatin, obesity (class II); with a BMI of 36 this admission, MATTHEW; on CPAP, DM-2 of unknown control on glimepiride, former tobacco abuse x ~30 years; with subsequent COPD, history of TIA, history of CHF, history of syncope, CKD; stage IV, history of prostatectomy, history of COVID-19, CAD; s/p RCA stents x 2 (2005) and then had 3 in-stent stenosis in the proximal RCA requiring coronary angioplasty (2022) stenting followed with recurrent chest pain in October and follow-up stress test on November 10, 2024 which showed mild sriram-infarct ischemia with subsequent LHC on November 27 that showed severe in-stent restenosis of heavily calcified proximal RCA; with percutaneous intervention performed with shockwave intracoronary lithotripsy and drug-eluting stent followed by very recent admission here from November 30, 2024 for treatment of a acute inferior STEMI alert with subsequent RCA with thrombus embolization of the Right posterior lateral ventricular branch that was treated with balloon angioplasty and placement of 2 new drug-eluting stents as well with the patient manage in the ICU thereafter and then discharged home to attend a wedding at 2:00 PM who re-presents to [facility] ER after 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 Mr. Rico reports his symptoms began ~40 minutes prior to presentation with the abrupt-onset of severe left-sided chest pain with dyspnea, diaphoresis and nausea. He describes the chest pain as a combination of heaviness and pressure that was moderate in severity (~5/10) and is now mild at ~2-3/10 was made better by nothing and worse by nothing. EMS was then activated and he received 4 baby aspirin and ticagrelor prehospital after he was noted to have signs of acute inferior STEMI on EKG with IV heparin begun in ER. Patient admits his symptoms are very similar to his previous IL's. There was no report of associated fever, chills, visual changes, discharge from eyes, runny nose, sore throat, ear pain, abdominal pain, vomiting, diarrhea, constipation, dysuria, hematuria, arthralgias, myalgias, headache or rash. In the ER he was noted to have mild Leukocytosis of 12.7 K present on admission (up from 11.2 K at 7:19 AM earlier today) with chronic moderate Thrombocytopenia of 134K present on admission with mild Hyponatremia of 131 mmol/L present on admission (down from 133 mmol/L at 7:19 AM earlier today) with notably stable vital signs and he was then admitted to the ICU for ongoing care for stay that is expected to extend beyond 2 midnights. [facility] Medical History Anemia Diabetes mellitus Chronic kidney disease Shortness of breath Unstable angina Fatigue Syncope Left-sided weakness History of COVID-19 Presence of stent in coronary artery (~08/31/22) Dyslipidemia Coronary artery disease Angina pectoris Abnormal PFT Chest heaviness Palpitations DEAN (dyspnea on exertion) Dizziness Leg pain Cough Exposure to COVID-19 virus Nonhealing nonsurgical wound with fat layer exposed Laceration without foreign body of scalp, subsequent encounter Acute left-sided weakness Essential hypertension CHF (congestive heart failure) History of melanoma Obesity (BMI 35.0-39.9 without comorbidity) CAD (coronary artery disease) 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.9) COPD (chronic obstructive pulmonary disease) TIA (transient ischemic attack) Obstructive sleep apnea Chronic kidney disease, stage 3 Atherosclerotic heart disease [place] coronary artery w/angina pectoris Type 2 diabetes mellitus without complications Hyperlipidemia Obesity Home Medications ?Medication ?Instructions ?Recorded ?Last Taken ?Type aspirin 81 mg tablet,delayed 81 mg PO DAILY@0800 health 01/21/17 10/11/23 History release maintenance mirtazapine 15 mg tablet (Remeron) 15 mg PO QHS sleep 09/21/18 10/11/23 History cyanocobalamin (vitamin B-12) 1,000 mcg PO DAILY vitamin ##0 06/01/19 10/11/23 History 1,000 mcg capsule magnesium oxide 400 mg (241.3 mg 800 mg PO DAILY SUPPLEMENT 08/01/21 10/11/23 History magnesium) tablet cetirizine 10 mg tablet 10 mg PO DAILY PRN Allergic 09/16/21 10/11/23 History Reaction cholecalciferol (vitamin D3) [address] 09/16/21 10/11/23 History mcg (1,000 unit) tablet fluoxetine 40 mg capsule 80 mg PO DAILY DEPRESSION 90 days 09/16/21 10/11/23 History #180 caps acetaminophen 325 mg tablet 650 mg PO Q6H PRN Pain 1-02/0910/12/23 Unknown History glimepiride 4 mg tablet 4 mg PO QDAY diabetes 03/20/24 Unknown History atorvastatin 40 mg tablet 40 mg PO QHS CHOLESTEROL #90 tabs 06/14/24 Unknown Rx losartan 100 mg tablet 100 mg PO DAILY blood pressure #90 06/14/24 Unknown Rx Held on 12/02/24. tabs Instructions: Until instructed to restart nitroglycerin 0.4 mg sublingual 0.4 mg sublingual Q5-15M PRN CHEST 06/14/24 Unknown Rx tablet PAIN #25 tabs pantoprazole 40 mg tablet,delayed 40 mg PO DAILY GERD #90 tabs 06/14/24 Unknown Rx release potassium chloride 20 mEq 60 meq (3 x 20 mEq) PO BID 06/14/24 Unknown Rx tablet,extended release(part/cryst) supplement #180 tabs Held on 12/02/24. Instructions: Until instructed to restart spironolactone 50 mg tablet 50 mg PO DAILY diuretic #90 tabs 06/14/24 Unknown Rx Held on 12/02/24. Instructions: Resume on 12/04/24. amlodipine 5 mg tablet 5 mg PO QPM blood pressure 10/25/24 Unknown History isosorbide mononitrate 60 mg 60 mg PO BID heart #90 TABLETS 10/25/24 Unknown Rx tablet,extended release 24 hr metolazone 2.5 mg tablet 2.5 mg PO QDAY diuretic 10/25/24 Unknown History Held on 12/02/24. Instructions: Resume on 12/04/24. metoprolol succinate 25 mg 25 mg PO DAILY blood pressure #30 10/25/24 Unknown Rx tablet,extended release 24 hr tabs hydrocodone-acetaminophen 5-325mg 1 tab PO TID PRN pain 11/22/24 11/27/24 History 5mg-325mg furosemide 80 mg tablet 80 mg PO DAILY #30 tabs 11/27/24 Unknown Rx Held on 12/02/24. Instructions: Resume on 12/04/24. ticagrelor 90 mg tablet (Brilinta) 90 mg PO BID #60 tabs 12/02/24 Unknown Rx Allergy/AdvReac Type Severity Reaction Status Date / Time No Known Allergies Allergy Verified 11/26/24 17:43 Family History Father Parkinsons disease Prostate cancer Mother Osteoporosis Surgical History Presence of coronary angioplasty implant and graft (11/27/24) History of tympanostomy tube placement History of percutaneous transluminal coronary angioplasty (08/18/18) History of herniorrhaphy Hx of cholecystectomy History of tonsillectomy History of prostatectomy Social History household members: spouse and none Smoking Status: Former smoker quit date: 05/03/98 pack-years: 50 how long ago did patient quit smokin years ago alcohol intake: never substance use type: does not use caffeine: Yes Type: coffee and tea Number of servings: 6 ROS ROS Narrative Review of Systems: Constitutional: Patient denies fever or chills. Eyes: Patient denies changes in vision or discharge from eyes. ENT: Patient denies runny nose, sore throat or ear pain. Resp: Patient admits to shortness of breath but he denies cough. CV: Patient admits to chest pain that was Left-sided with pressure and heaviness, diaphoresis and nausea as per HPI. GI: Patient admits to nausea but he denies vomiting, diarrhea, constipation or abdominal pain. : Patient denies dysuria or hematuria. MSK: Patient denies arthralgias or myalgias. Skin: Patient denies rash, abscess, wounds or jaundice. Psych: Patient denies symptoms of uncontrolled depression or anxiety. Neuro: Patient denies headache, paresthesias or focal neurologic deficits. Allergy: Patient denies lip swelling, tongue swelling or urticaria. Hematology: Patient denies easy bleeding or easy bruisability. Endocrinology: Patient denies polyuria, polydipsia, polyphagia or heat/cold intolerance. 14 point ROS otherwise negative except for positives noted above in HPI. Vital Signs Vital Signs Vital Signs: 12/02/24 20:16 12/02/24 20:19 12/02/24 20:21 Temperature 98.8 F Temperature Source Oral Pulse Rate 83 Respiratory Rate 19 H Respiratory Effort Blood Pressure 129/78 H 129/78 H Blood Pressure Mean 95 Pulse Ox 96 Oxygen Delivery Method Nasal Cannula Nasal Cannula Oxygen Flow Rate (L/min) 3 3 12/02/24 20:24 12/02/24 20:33 Temperature Temperature Source Pulse Rate 80 Respiratory Rate 18 Respiratory Effort Short of Breath Blood Pressure 106/69 Blood Pressure Mean 81 Pulse Ox 95 Oxygen Delivery Method Nasal Cannula Oxygen Flow Rate (L/min) Weight Weight: 243 lb 9.6 oz Body Mass Index (BMI) 35.9 Physical Exam Const alert and oriented x3 Constitutional Narrative: Obese patient who appears slightly pale with moist skin. General Appearance: cooperative HEENT normocephalic, head/scalp atraumatic, hearing grossly normal bilaterally and moist oral mucous membranes Eyes PERRL, EOMs intact bilaterally and conjunctivae normal Neck no lymphadenopathy, supple and no JVD Resp normal respiratory effort, no retractions, no use of accessory muscles and clear to auscultation bilaterally Cardio regular rate and regular rhythm GI normal to inspection, nondistended, normoactive bowel sounds, soft to palpation, non-tender and non-distended GI Narrative: Obese. Extremity Extremity Narrative: Patient has bruising of his Right upper extremity and Right groin. Skin Skin Narrative: Patient has bruising of his Right upper extremity and Right groin. No rash or wound noted. Neuro oriented x3, CN's II-XII intact bilaterally, moves all extremities and no focal motor deficits Sensorium / Orientation: awake, alert, oriented to person, oriented to place and oriented to time Speech: speech normal Psych affect normal Results Medical Records Data Attestation: I reviewed the patient's medical records Lab / Micro Data Attestation: I reviewed the patient's lab results. 12/02/24 20:19 12/02/24 20:19 Labs: Laboratory Results - last 24 hr 12/02/24 20:19: WBC 12.7 H, RBC 3.81 L, Hgb 11.1 L, Hct 34.1 L, MCV 89.5, MCH 29.1, MCHC 32.6, RDW Std Deviation 45.8 H, RDW Coeff of [place] 14.1, Plt Count 134 L, MPV 12.8 H, Immature Gran % (Auto) 0.600, Neut % (Auto) 76.7 H, Lymph % (Auto) 8.9 L, [place] % (Auto) 12.7 H, Eos % (Auto) 0.8, Baso % (Auto) 0.3, Absolute Neuts (auto) 9.8 H, Absolute Lymphs (auto) 1.13, Nucleated RBC % 0, PT 14.6, INR 1.1, APTT 31.6, Sodium 131 L, Potassium 4.6, Chloride 96 L, Carbon Dioxide 20.5 L, Anion Gap 14, BUN 52 H, Creatinine 2.90 H, Estim Creat Clear Calc 25.31 L, Est GFR (MDRD) Non-Af 21 L, BUN/Creatinine Ratio 18.0, Glucose 175 H, Calcium 9.1 Assessment & Plan Assessment/Plan (1) Coronary artery vasospasm: (2) History of acute inferior wall IL: (3) Leukocytosis: QUALIFIERS: Leukocytosis type: unspecified Qualified Code(s): D72.829 - Elevated white blood cell count, unspecified (4) Hyponatremia: (5) CKD (chronic kidney disease) stage 4, GFR 15-29 ml/min: (6) Obesity (BMI 30-39.9): PLAN: Plan 1. Acute Vasospasm mimicking Inferior Wall STEMI; recurrent in the setting of known CAD; s/p RCA stents x 2 (2005) and then had 3 in-stent stenosis in the proximal RCA requiring coronary angioplasty (2022) stenting followed with recurrent chest pain in October and follow-up stress test on November 10, 2024 which showed mild sriram-infarct ischemia with subsequent LHC on November 27 that showed severe in-stent restenosis of heavily calcified proximal RCA; with percutaneous intervention performed with shockwave intracoronary lithotripsy and drug-eluting stent followed by very recent admission here from November 30, 2024 for treatment of a acute inferior STEMI alert with subsequent RCA with thrombus embolization of the Right posterior lateral ventricular branch that was treated with balloon angioplasty and placement of 2 new drug-eluting stents as well with the patient manage in the ICU thereafter and then discharged home to attend a wedding at 2:00 PM who re-presents to [facility] ER after 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 Patient taken for emergent LHC by [facility] with the patient suspected to have acute coronary vasospasm with no lesion noted so patient will be managed in PCU. Continue present treatment with baby aspirin, ticagrelor and IV heparin. Give acetaminophen as needed for [id number] (level 1-5/10) pain or fever. Give morphine IV as needed for severe (level 6-10/10) pain. Give ondansetron IV as needed for nausea and vomiting. 2. Leukocytosis of 12.7K present on admission complicating #1 - Likely due to acute stress response related to #1 with no signs of acute infection at this time. UA pending at this time. 3. Mild Hyponatremia of 131 mmol/L present on admission compounding #1 & #2 - Give NS IVF and recheck CMP in AM to follow trend. 4. CKD; stage IV adding to the medical complexity of #1 - #3 - Stable with serum creatinine of 2.9 mg/dL and eGFR of 21 mL/min. 5. Obesity (class II); with a BMI of 36 this admission plus MATTHEW; on CPAP adding to the burden of disease outlined from #1 - #4 - Weight loss will be recommended. Check TSH. Resume nocturnal CPAP. This complicates his case and may hamper recovery. 6. Essential hypertension; on amlodipine, losartan, metoprolol, spironolactone and furosemide - Patient will be continued on medications of cardiology's choosing. 7. Hyperlipidemia; on atorvastatin - Resume statin. 8. DM-2 of unknown control on glimepiride - NPO for now. Check FSBS q. 6 hours plus SSI. 9. Former tobacco abuse x ~30 years; with subsequent COPD - Stable with no evidence of acute flare at this time. 10. History of TIA - Noted. 11. History of CHF - Stable with no signs of volume overload at this time. 12. History of syncope - Noted. 13. History of prostatectomy - Noted. 14. History of COVID-19 - Noted. 15. DVT prophylaxis - Patient on IV heparin for #1. Total time: Approximately (but not less than) 75 minutes. Charges/Coding Visit Charges Inpatient E&M: 42224 Init Hosp L3
--- NOTE | 2024-12-02 20:51 | CM.ED ---
Social Work Date of referral: 12/02/24 Reason for referral: STEMI Alert Aviation Warfare Systems Operator responded to STEMI alert. Aviation Warfare Systems Operator stayed behind with patient's and the 's 2 sisters who were present for support. Aviation Warfare Systems Operator got all coffee per their request and was able to help them get to the waiting room and then patient's back to patient's room when able. (end time: 20:24) Aviation Warfare Systems Operator assisted with patient's and her sisters and another adult female with getting transported to the new waiting area once laborer pullet farm became ready. (end: 20:51) Opal Knox, ABA THERAPIST, ADJUNCT WRITING INSTRUCTOR
[2024-12-02 21:22] LABS: Troponin T High Sensitivity > 10000 ng/L (<=22)
--- NOTE | 2024-12-02 21:34 | PCIREPORT_ITS ---
PCI Cardiac Cath Report PCI Report: DATE OF PROCEDURE: 12/02/2024? ? PRIMARY DELIMER: ?Mickey Simpson MD, [facility] ?? INDICATION FOR PROCEDURE: ?CAD s/p recent PCI ,chest pain, ECG changes suggestive of STEMI ? ?PROCEDURES PERFORMED:?? * Left heart catheterization without Left ventriculogram.? * Right and left Coronary Angiogram.?FINDINGS:? * Right coronary artery is a large sized patent vessel, there are multiple layers of stenting in the proximal to mid segment which appears to be patent with minimal in-stent restenosis, followed by 2 sequential patent stents in the PLV, PDA is a small size vessel that showed mild disease in the proximal segment. 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 * Left ventricular end diastolic pressure was 23 mmHg.? There was no significant gradient across the aortic valve upon pullback.? ? IMPRESSION:? * Patent stents in the RCA * Elevated LVEDP, LVEDP measured as 23 mmHg. * No gradient across the aortic valve.? ? RECOMMENDATIONS:?? * Continue aspirin, Brilinta, high potency statins, beta-jeffrey, will uptitrate Imdur * Resume diuresis, given elevated LVEDP, we used 70 cc contrast. * Aggressive risk factor modification? ? PROCEDURE:?? TYPE OF ANESTHESIA: Conscious sedation.? * The risks and alternatives of the procedures and conscious sedation were exp lained to the patient and informed consent was obtained. The patient was brought to the chemical laboratory scientist and placed on the table. The planned puncture sites were prepped and draped in the usual sterile fashion.? * Left radial artery access the puncture site was infiltrated with local anesthetic. The vessel was accessed using the modified Seldinger technique, a guidewire was advanced, and a?6 fr. Sheath was advanced over the guidewire into the vessel.? * Left heart catheterization. the AR catheter was advanced over a 0.035 inch guidewire to the ascending aorta. The catheter was flushed to ensure that it did not contain air or thrombotic material. The catheter was advanced across the aortic valve and left ventricular pressure was recorded. Then catheter was pulled back recording ascending aortic pressure, with gradient across the aortic. * Left coronary artery angiography. A 5 Fr. JL 3.5 catheter was advanced over a 0.035 inch guidewire under fluoroscopic guidance in the [place] projection into the ascending aorta. The catheter was flushed to ensure that it did not contain any air or thrombotic material. The catheter was advanced into the left main coronary artery in the [place] projection. After confirming there was no dampening of the catheter, angiography was performed in multiple projections using hand-injection of contrast. At the end, the catheter was then removed over the guidewire.?? * Right coronary artery angiography. A 6 Fr. AR1 guide catheter was advanced over a 0.035 inch guidewire under fluoroscopic guidance in the [place] projection to the aortic valve. The catheter was flushed to ensure that it did not contain any air or thrombotic material. The catheter was advanced in a counterclockwise fashion to cannulate the right coronary artery. After confirming there was no dampening of the catheter, angiography was performed in multiple projections using hand-injection of contrast. The catheter was then removed over the guidewire.?? ? FINDINGS:? HEMODYNAMICS:? * No Gradient across the aortic valve.? * Elevated LVEDP, LVEDP measured as 23 mmhg .? ? ANGIOGRAPHIC FINDINGS:? CORONARY CIRCULATION:? LM:? The left main coronary artery is a normal sized vessel that bifurcates into the left anterior descending and a very small circumflex like vessel branches.?? There is no angiographic evidence of obstructive disease.? LAD:? The left anterior descending artery is a normal sized vessel which has a normal course in the interventricular groove.? It gives off 1 major diagonal and multiple septal perforators.? The LAD then tappers down and end by wrapping around the apex.?? There is mild disease in the proximal to mid segment. The high diagonal is a medium size vessel that bifurcates into 2 smaller branches it transverses across the myocardium all the way into the apex, it shows minimal luminal irregularities with no significant lesions. 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 RCA: The right coronary artery is a normal sized dominant vessel. It has a normal course. It ends by giving PDA and PLV branches.? PDA is a normal sized vessel; it papers down and ends in the posterior interventricular groove. PLV is a small sized vessel that gives smaller branches. It tapers down then ends in the posterior AV groove.?? There are patent stents in the proximal to mid segment,followed by a patent stents in PLV.?Mild disease in PDA COMPLICATIONS:? None.? HEMOSTASIS:?? * The sheath was removed. The puncture site was compressed using radial band. Hemostasis was successful.?
[2024-12-02 21:40] LABS: Differential Comment SCANNED
[2024-12-02 21:55] LABS: ACT Activated Clotting Time 245 sec (74-137)
--- NOTE | 2024-12-02 23:04 | CPS ---
Pt is set up on a sleep lab machine, ASV settings that he is prescribed after new sleep study.
[2024-12-02] MEDS: TICAGRELOR 90 MG TABLET PO (23:07)
[2024-12-02] MEDS: Magnesium Chloride 64 MG Delay Rel.Tablet 128 MG PO (23:08)
[2024-12-02] MEDS: HYDROcodone Bitartrate/Apap 5/325 Tablet PO (23:09)
[2024-12-03] VITALS (13 sets, daily range): BP systolic 90–121; BP diastolic 56–80; PULSE 62–94; RESP 16–22; TEMP 36.6–37.1; O2SAT 93–97; BMI 35.4
[2024-12-03 00:08] LABS: Troponin T High Sens 2 HR > 10000 ng/L (<=22)
[2024-12-03 02:41] LABS: Troponin T High Sens 4 HR > 10000 ng/L (<=22)
--- OUTSIDE RECORDS SUMMARY | 2024-12-03 05:26 | XMS RPT_ITS | CCD ---
Author Organization [facility] CliniSymt Care Team Providers Care Warp Knit Operator Name Role Phone Unavailable Unavailable Unavailable Marycarmen Rodriguez DO Primary Care Provider [phone] Marycarmen Rodriguez DO Primary Care Provider [phone] MIN HOWARD Referring Unavailable MARYCARMEN RODRIGUEZ Primary Care Unavailable ELADIO INGRAM Attending Unavaila ble DAVAKIS, ELADIO ALLEN Admitting Unavaila ble JENNIFERMARYCARMEN RUIZ Primary Care Unavailable MARYCARMEN RODRIGUEZ Primary Care Unavailable DAVBAYRON, ELADIO ALLEN Referring Unavaila ble DAVAKIS, ELADIO [...] Attending Unavailable MARYCARMEN RODRIGUEZ Primary Care Unavailable MARYCAMREN RODRIGUEZ Admitting Unavailable DAVAKISELADIO Attending Unavaila ble JENNIFERMARYCARMEN RUIZ Referring Unavailable MARYCARMEN RODRIGUEZ Primary Care Unavailable SHIRA, ELADIO ALLEN Attending Unavaila ble MARYCARMEN RODRIGUEZ Primary Care Unavailable Dr. Marycarmen Rodriguez Primary Care Provider [phone] Marycarmen Rodriguez Referring Provider [phone] Mike PEREA, DIABETES MANAGER-C Luz Elena Attending Provider Dr. Darnell Corral Attending Provider Mike DIABETES MANAGER, DIABETES MANAGER-C Luz Elena Referring Provider Mike DIABETES MANAGER, DIABETES MANAGER-C Luz Elena Other Provider Dr. John Palacios Attending Provider Mike DIABETES MANAGER, DIABETES MANAGER-C Luz Elena Referring Provider Dr. Marycarmen Rodriguez Primary Care Provider [phone] Dr. Marycarmen Rodriguez Referring Provider Mike DIABETES MANAGER, ELIAZAR-C Luz Elena Attending Provider Dr. Zen [...] Provider Dr. Alka Leo Admit Provider [phone] Dr. Alka Leo Attending Provider Dr. Alka Leo Other Provider Dr. Shaan Santos Attending Provider Dr. Shaan Santos Other Provider Dr. Aimee Cummins Attending Provider Mike DIABETES MANAGER, DIABETES MANAGER-C Luz Elena Attending Provider Adina Vallejo Attending [...] Dr. Marycarmen Rodriguez DO Attending Provider Beto DIABETES MANAGER-C, Gustabo H Attending Provider Roof DIABETES MANAGER-C, Gustabo H Referring Provider Justina DIABETES MANAGER-CMarni Attending Provider Justina DIABETES MANAGER-CMarni Referring Provider Dr. Marycarmen Rodriguez DO Primary Care Provider Dr. Marycarmen Rodriguez DO Referring Provider Dr. Jose Hay MD Attending Provider Justina DIABETES MANAGER-CMarni Other Provider Dr. Zen East DO Attending Provider Dr. Marycarmen Rodriguez DO Primary Care Provider Dr. Marycarmen Rodriguez DO Referring Provider Dr. Marycarmen Rodriguez DO Attending Provider Dr. Marycarmen Rodriguez DO Primary Care Provider Dr. Marycarmen Rodriguez DO Referring Provider Brendon DIABETES MANAGER-C, Maren Clarke Attending Provider Brendon DIABETES MANAGER-C, Maren Clarke Referring Provider Cruzito CATHERINE, Dr. Zaldivar Attending Provider Pauline PALOMO, Dr. Guy Attending Provider Pauline PALOMO, Dr. Guy Referring Provider Roof DIABETES MANAGER-C, Gustabo Gao Other Provider Roof DIABETES MANAGER-C, Gustabo H Attending Provider Jennifer CATHERINE, Dr. Dow Primary Care Provider Jennifer CATHERINE, Dr. Dow Attending Provider Jennifer CATHERINE, Dr. Dow Primary Care Provider Horn DIABETES MANAGER-C, Marni Attending Provider Horn DIABETES MANAGER-C, Marni Referring Provider Dr. Marycarmen Rodriguez DO Referring Provider Roof DIABETES MANAGER-C, Gustabo Gao Referring Provider Jennifer PALOMO, Dr. Lucas Attending Provider Unavailab bear Hay MD, Dr. Garcia Attending Provider Dr. Marycarmen Rodriguez DO Primary Care Provider Horn DIABETES MANAGER-C, Marni Attending Provider Horn DIABETES MANAGER-C, Marni Referring Provider Dr. Marycarmen Rodriguez DO Referring Provider Brendon DIABETES MANAGER-C, Maren Clarke Attending Provider Brendon DIABETES MANAGER-C, Maren Clarke Referring Provider Dr. Marycarmen Rodriguez DO Attending Provider Pauline PALOMO, Dr. Guy Attending Provider Pauline PALOMO, Dr. Guy Referring Provider Roof DIABETES MANAGER-C, Gustabo H Other Provider Roof DIABETES MANAGER-C, Gustabo H Attending Provider Roof DIABETES MANAGER-C, Gustabo H Referring Provider Jennifer PALOMO, Dr. Lucas Attending Provider Unavailab le Jose Armando PALOMO, Dr. Garcia Attending Provider Florecita PALOMO, Isael Emergency Provider Jose Armando PALOMO, Dr. Garcia Admit Provider Jose Armando PALOMO, Dr. Garcia Referring Provider Keyana CATHERINE, Dr. Rosario Admit Provider [phone] Dr. Abraham Ridley DO Attending Provider Zen East Attending Unavailable Justina DIABETES MANAGER, Marni Referring Unavailable Jennifer, Marycarmen Primary Care Unavailable Jose Armando, Jose Referring Unavailable Jennifer, Marycarmen Primary Care Unavailable Nickie Danielson Attending Unavailable Abraham Ridley Consulting Unavailable Abraham Ridley Admitting Unavailable Nickie Danielson Consulting Unavailable Marcin Araujo Attending Unavailable Roof DIABETES MANAGER, Gustabo Gao Attending Unavailable Jennifer, Marycarmen Referring Unavailable Jennifer, Marycarmen Primary Care Unavailable Jennifer, Marycarmen Primary Care Unavailable Jose Armando, Jose Attending Unavailable Jennifer, Marycarmen Primary Care Unavailable Roof DIABETES MANAGER, Gustabo Gao Attending Unavailable Jennifer, Marycarmen Referring Unavailable Maren Olivas Attending Unavailable Jennifer, Marycarmen Referring Unavailable Jennifer, Marycarmen Primary Care Unavailable Roof DIABETES MANAGER, Gustabo Gao Consulting Unavailable Brooks Carpenter Attending Unavailable Brooks Carpenter Referring Unavailable Jennifer, Marycarmen Primary Care Unavailable Jennifer, Marycarmen Attending Unavailable Jennifer, Marycarmen Referring Unavailable Jennifer, Marycarmen Primary Care Unavailable Jennifer, Marycarmen Referring Unavailable Jennifer, Marycarmen Primary Care Unavailable Horn DIABETES MANAGER, Marni Attending Unavailable Jennifer, Marycarmen Primary Care Unavailable Jennifer, Marycarmen Attending Unavailable Jennifer, Marycarmen Primary Care Unavailable Jose Armando, Jose Referring Unavailable Jose Armando, Jose Admitting Unavailable Jose Armando, Jose Attending Unavailable Isael Bernabe Attending Unavailable Jennifer, Marycarmen Primary Care Unavailable Roof DIABETES MANAGER, Gustabo H Attending Unavailable Roof DIABETES MANAGER, Gustabo H Referring Unavailable Jennifer, Marycarmen Primary Care Unavailable Jennifer, Marycarmen Primary Care Unavailable Jennifer, Marycarmen Attending Unavailable Jennifer, Marycarmen Primary Care Unavailable Lance Rodriguez Attending Unavailable Roof DIABETES MANAGER, Gustabo H Referring Unavailable Jennifer, Marycarmen Primary Care Unavailable Horn DIABETES MANAGER, Marni Referring Unavailable Horn DIABETES MANAGER, Marni Attending Unavailable Jennifer, Marycarmen Primary Care Unavailable Roof DIABETES MANAGER, Gustabo H Referring Unavailable Roof DIABETES MANAGER, Gustabo H Attending Unavailable Elvis Olvera Consulting Unavailable Adeli, Amir Consulting Unavailable Hindupretty, Faye Consulting Unavailable Sam, Petrona Consulting Unavailable Zha, Candice Consulting Unavailable Sissy, Diogenes Consulting Unavailable Cari Shultz Consulting Unavailable Sherman Rouse Consulting Unavailable Tiffany John Consulting Unavailable Jamar Tapia Consulting Unavailable Chrissy Mccallum Consulting Unavailable Fletcher Good Consulting Unavailable Sarah Beth Candelaria Consulting Unavailable Jody Kwon Consulting Unavailable Fermin José Consulting UnavailMin Woodruff Consulting Unavailable Nick Bernard Consulting Unavailable Zay Alanis Consulting Unavailable Kristina Danielson Consulting Unavailable Ernestina Milan Consulting Unavailable Jennifer, Marycarmen Primary Care Unavailable Horn DIABETES MANAGER, Marni Referring Unavailable Horn DIABETES MANAGER, Marni Attending Unavailable Maren Olivas Attending Unavailable Maren Olivas Referring Unavailable Jennifer, Marycarmen Primary Care Unavailable Jennifer, Marycarmen Attending Unavailable Jennifer, Marycarmen Primary Care Unavailable Jennifer, Marycarmen Primary Care Unavailable Horn DIABETES MANAGER, Marni Attending Unavailable Horn DIABETES MANAGER, Marni Attending Unavailable Jennifer, Marycarmen Primary Care Unavailable Jennifer, Marycarmen Primary Care Unavailable Horn DIABETES MANAGER, Marni Referring Unavailable Horn DIABETES MANAGER, Marni Attending Unavailable Roof DIABETES MANAGER, Gustabo H Attending Unavailable Jennifer, Marycarmen Referring Unavailable Jennifer, Marycarmen Primary Care Unavailable Maren Olivas Attending Unavailable Jennifer, Marycarmen Referring Unavailable Jennifer, Marycarmen Primary Care Unavailable Jose ArmandoJose Attending Unavailable Jennifer, Marycarmen Referring Unavailable Jennifer, Marycarmen Primary Care Unavailable Jose ArmandoJose Attending Unavailable Jennifer, Marycarmen Referring Unavailable Jennifer, Marycarmen Primary Care Unavailable Roof DIABETES MANAGER, Gustabo H Referring Unavailable Roof DIABETES MANAGER, Gustabo H Consulting Unavailable Jose Hay Attending Unavailable Jennifer, Marycarmen Primary Care Unavailable Jennifer, Marycarmen Primary Care Unavailable Zen East Attending Unavailable Horn DIABETES MANAGER, Marni Referring Unavailable Horn DIABETES MANAGER, Marni Consulting Unavailable Jennifer, Marycarmen Primary Care Unavailable Basali, Ayman Attending Unavailable Basali, Ayman Referring Unavailable Jennifer, Marycarmen Primary Care Unavailable Horn DIABETES MANAGER, Marni Referring Unavailable Horn DIABETES MANAGER, Marni Attending Unavailable Roof DIABETES MANAGER, Gustabo H Referring Unavailable Roof DIABETES MANAGER, Gustabo H Attending Unavailable Jennifer, Marycarmen Primary Care Unavailable Horn DIABETES MANAGER, Marni Referring Unavailable Jennifer, Marycarmen Primary Care Unavailable Horn DIABETES MANAGER, Marni Attending Unavailable RufenerMaren M Attending Unavailable RufenerMaren M Referring Unavailable Jennifer, Marycarmen Primary Care Unavailable Jose Armando, Jose Referring Unavailable Jose Armando, Jose Attending Unavailable Jennifer, Marycarmen Primary Care Unavailable Abraham Ridley Attending Unavailable Dr. Marycarmen Rodriguez DO Primary Care Provider Horn DIABETES MANAGER-C, Marni Attending Provider Horn DIABETES MANAGER-C, Marni Referring Provider Isael Bernabe MD Attending Provider [phone] Abraham Ridley DO Other Provider Dr. Nickie Danielson DO Attending Provider Elvis Olvera MD Other Provider Unavailable Marky PALOMO, Dr. Rutherford Other Provider Faye Kingsley MD Other Provider Unavailable Dr. Petrona Vargas DO Other Provider Dr. Candice Barlow MD Other Provider Dr. Diogenes Sheehan MD Other Provider Dr. Cari Shultz MD Other Provider Dr. Sherman Rouse MD Other Provider Dr. Tiffany John MD Other Provider [phone] Willie PALOMO, Dr. Roldan Other Provider Chrissy Mccallum MD Other Provider [phone] Florentino PALOMO, Dr. Bynum Other Provider [phone] Bari PALOMO, Dr. Burleson Other Provider [phone] Cher PALOMO, Dr. Vera Other Provider [phone] Arnav PALOMO, Dr. Fermin Hernandez Other Provider Ken PALOMO, Dr. Alvarado Other Provider [phone] Joana PALOMO, Dr. Romero Other Provider Annabelle PALOMO, Dr. Collazo Other Provider [phone] Jagjit PALOMO, Dr. Acevedo Other Provider Unavailable Kayli PALOMO, Ernestina Other Provider Unavailable Dr. Abraham Ridley DO Attending Provider Jagjit CATHERINE, Dr. Fu Other Provider Gayle PALOMO, Dr. Burch Attending Provider Hilton PALOMO, Dr. Iqbal Emergency Provider Tatiana PALOMO, Dr. Arevalo Referring Provider Medications Current Medications Medication Drug Class(es) [...] 2021 10:49am DEPRESSION take 1 capsule by [facility] twice daily FLUoxetine (PROZAC) 40 MG capsule [...] Discontinued 60 mg PO EVERY MORNING 1 August 26, 2018 1:40pm September 08, 2018 [...] Drug Class(es) Dates Sig (Normalized) Sig (Original) [id number] 200 actuat albuterol 0.09 mg/actuat metered dose [...] INHALATION Q24H 30 September 20, 2024 12:00am gabapentin 100 mg [...] BEDTIME NEEDED as needed for Insomnia 0 0 September 21, 2022 12:00am December 15, [...] 3 08/07/2016 Active perflutren lipid microsphere s (DEFIN[place] and Square) 0.143 mg/mL solution 0-10 mL of mixture [...] 2017 7:41pm predniSONE 20 mg oral tablet (20 sources) Start: 09-20-2024 End: 10-25-2024 pregabalin 50 [...] Date Episodic/Chronic Acute and unspecified renal failure (5 sources) Acute kidney failure, unspecified; Translations: [Tezvm-pz-auwshwj renal failure] Onset: 12-02-2024 12-01-2024 Episodic Acute myocardial infarction (12 sources) Myocardial infarction; Translations: [ST elevation (STEMI) myocardial infarction of unspecified site] Onset: 11-30-2024 11-30-2024 Chronic Asthma (20 sources) Asthma; Translations: [Unspecified asthma, uncomplicated] 10-31-2024 Chronic Cardiac dysrhythmias (20 sources) Palpitations; Translations: [Palpitations] Onset: 10-25-2024 Episodic Chronic kidney disease (20 sources) Chronic kidney disease stage 3; Translations: [Stage 3 chronic kidney disease] Onset: 12-02-2024 12-09-2020 Chronic Chronic kidney disease (8 sources) Chronic kidney disease; Translations: [Chronic kidney [...] heart disease (20 sources) Coronary arteriosclerosis in [place] artery; Translations: [Preinfarction syndrome] Onset: 01-05-2015 10-15-2016 [...] 01-05-2015 Chronic Diseases of white blood cells (5 sources) Elevated white blood cell count, unspecified; Translations: [Leukocytosis] Onset: 12-02-2024 12-01-2024 Chronic Disorders of lipid metabolism (20 sources) Hyperlipidemia; Translations: [Hyperlipidemia, unspecified] Onset: 11-22-2024 06-17-2015 Chronic Diverticulosis and diverticulitis (20 sources) Diverticulitis; Translations: [Diverticulitis of intestine, part unspecified, without perforation or abscess without bleeding] 05-27-2021 Chronic E Codes: Fall (7 sources) Fall; Translations: [Unspecified fall, initial encounter] [...] injuries and conditions due to external causes (7 sources) Abrasion; Translations: [Other injury of unspecified [...] uncomplicated] Onset: 10-24-2024 Chronic Superficial injury; contusion (20 sources) Contusion of left knee; Translations: [Contusion [...] multiple wires and attempts. Procedure aborted. 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-Dn and Stent-Mid RCA x 2 Multi Link [...] Range Facility Absolute lymphocyte countOrd ered By: Rasheed Canela on 12-02-2024 Lymphocytes Auto (Unsp spec) [#/Vol] 1.13 10*3/uL 0.83-4.51 [facility] Absolute lymphocyte countOrd ered By: Nickie Danielson on 12-02-2024 Lymphocytes Auto (Unsp spec) [#/Vol] 0.85 10*3/uL 0.83-4.51 [facility] Activated partial thrombopla stin time (aPTT) in platelet poor plasma by coagulation aOrdered By: Rasheed Canela on 12-02-2024 aPTT Coag (PPP) [Time] 31.6 s 24.1-36.2 [facility] Anion gap in Serum or Plasma Ordered By: Rasheed Canela on 12-02-2024 Anion gap [Moles/Vol] 14 mmol/L 09-14 [facility] Anion gap in Serum or Plasma Ordered By: Nickie Danielson on 12-02-2024 Anion gap [Moles/Vol] 14 mmol/L 09-14 [facility] Automated lymphocyte count a s percentage of total leukocytesOrdered By: Rasheed Canela on 12-02-2024 Lymphocytes/100 WBC Auto (Unsp spec) 8.9 % Low 19- [facility] Automated lymphocyte count a s percentage of total leukocytesOrdered By: Nickie Danielson on 12-02-2024 Lymphocytes/100 WBC Auto (Unsp spec) 7.6 % Low 19-41 [facility] BUN/creatinine ratioOrdered By: Rasheed Canela on 12-02-2024 Urea nitrogen/Creatinine [Mass ratio] 18.0 mg/mg 02-19 [facility] BUN/creatinine ratioOrdered By: Nickie Danielson on 12-02-2024 Urea nitrogen/Creatinine [Mass ratio] 17.2 mg/mg 02-19 [facility] Basophil percentageOrdered B y: Rasheed Canela on 12-02-2024 Basophils/100 WBC (Bld) 0.3 % 0-1 [facility] Basophil percentageOrdered B y: Nickie Danielson on 12-02-2024 Basophils/100 WBC (Bld) 0.1 % 0-1 [facility] Bedside Glucoseon 12-02-2024 FINGERSTICK GLU 129 mg/dL High 74-106 [facility] Comment on above: Result Comment: WILDA BARROSO OF PATIENT CARE PER NURSING PROTOCOL Performed By: #### L 501.080 ####[facility] [id number] [place], [address] Carbon dioxide, total [Moles /volume] in Central venous bloodOrdered By: Rasheedjulian Canela on 12-02-2024 CO2 [Moles/Vol] 20.5 mmol/L Low 21.0-32.0 [facility] Carbon dioxide, total [Moles /volume] in Central venous bloodOrdered By: Nickie Danielson on 12-02-2024 CO2 [Moles/Vol] 20.6 mmol/L Low 21.0-32.0 [facility] Chloride assayOrdered By: Ug o Hilton on 12-02-2024 Chloride [Moles/Vol] 96 mmol/L Low 98-108 [facility] Chloride assayOrdered By: Korina Danielson on 12-02-2024 Chloride [Moles/Vol] 99 mmol/L 98-108 [facility] Eosinophil percentageOrdered By: Rasheedjulian Canela on 12-02-2024 Eosinophils/100 WBC (Bld) 0.8 % 0- [facility] Eosinophil percentageOrdered By: Nickie Danielson on 12-02-2024 Eosinophils/100 WBC (Bld) 0.7 % 0-5 [facility] Erythrocyte distribution wid th ratioOrdered By: Rasheedjulian Canela on 12-02-2024 Erythrocyte distribution width (RBC) [Ratio] 14.1 % 11.6-14.6 [facility] Erythrocyte distribution wid th ratioOrdered By: Nickie Danielson on 12-02-2024 Erythrocyte distribution width (RBC) [Ratio] 14.4 % 11.6-14.6 [facility] Erythrocyte distribution wid th standard deviationOrdered By: Rasheedjulian Canela on 12-02-2024 Erythrocyte distribution width (RBC) [Ratio] 45.8 fl High 35.1-43.9 [facility] Erythrocyte distribution wid th standard deviationOrdered By: Nickie Danielson on 12-02-2024 Erythrocyte distribution width (RBC) [Ratio] 47.4 fl High 35.1-43.9 [facility] Glomerular filtration rate ( GFR) estimation/1.73 sq m using serum, plasma, or whole bOrdered By: Rasheed Canela on 12-02-2024 GFR/1.73 sq M.predicted among non-blacks MDRD (S/P/Bld) [Vol rate/Area] 21 mL/min/{1.73_m2} Low >60 [facility] Glomerular filtration rate ( GFR) estimation/1.73 sq m using serum, plasma, or whole bOrdered By: Nickie Danielson on 12-02-2024 GFR/1.73 sq M.predicted among non-blacks MDRD (S/P/Bld) [Vol rate/Area] 21 mL/min/{1.73_m2} Low >60 [facility] Gl[facility] at [facility] deOrdered By: Nickie Danielson on 12-02-2024 Glucose [Mass/Vol] 129 mg/dL High 74-106 [facility] Hematocrit Auto (Bld) [Volum e fraction]Ordered By: Rasheed Canela on 12-02-2024 Hematocrit (Bld) [Volume fraction] 34.1 % Low 40-54 [facility] Hematocrit Auto (Bld) [Volum e fraction]Ordered By: Nickie Danielson on 12-02-2024 Hematocrit (Bld) [Volume fraction] 32.1 % Low 40-54 [facility] Hemoglobin measurementOrdere d By: Rasheed Canela on 12-02-2024 Hemoglobin (Bld) [Mass/Vol] 11.1 g/dL Low 13.0-16.5 [facility] Hemoglobin measurementOrdere d By: Nickie Danielson on 12-02-2024 Hemoglobin (Bld) [Mass/Vol] 10.4 g/dL Low 13.0-16.5 [facility] Immature granulocytes/100 WB C Auto (Bld)Ordered By: Rasheed Canela on 12-02-2024 Immature granulocytes/100 WBC (Bld) 0.600 % 0.0-0.9 [facility] Immature granulocytes/100 WB C Auto (Bld)Ordered By: Nickie Danielson on 12-02-2024 Immature granulocytes/100 WBC (Bld) 0.700 % 0.0-0.9 [facility] MCV (mean corpuscular volume ) determinationOrdered By: Rasheed Canela on 12-02-2024 MCV (RBC) [Entitic vol] 89.5 fL 80-94 [facility] MCV (mean corpuscular volume ) determinationOrdered By: Nickie Danielson on 12-02-2024 MCV (RBC) [Entitic vol] 91.2 fL 80-94 [facility] Magnetic resonance imaging r eportOrdered By: Nghia Watres on 12-02-2024 Study report [facility] Mean corpuscular hemoglobin (MCH) determinationOrdered By: Rasheed Canela on 12-02-2024 MCH (RBC) [Entitic mass] 29.1 pg 27.0-32.0 [facility] Mean corpuscular hemoglobin (MCH) determinationOrdered By: Nickie Danielson on 12-02-2024 MCH (RBC) [Entitic mass] 29.5 pg 27.0-32.0 [facility] Monocyte percentageOrdered B y: Rasheed Canela on 12-02-2024 Monocytes/100 WBC (Bld) 12.7 % High 0-10 [facility] Monocyte percentageOrdered B y: Nickie Danielson on 12-02-2024 Monocytes/100 WBC (Bld) 12.0 % High 0-10 [facility] Neutrophil percentageOrdered By: Rasheed Canela on 12-02-2024 Neutrophils/100 WBC (Bld) 76.7 % High 47-70 [facility] Neutrophil percentageOrdered By: Nickie Danielson on 12-02-2024 Neutrophils/100 WBC (Bld) 78.9 % High 47-70 [facility] Platelet countOrdered By: Afshin aCnela on 12-02-2024 Platelets (Bld) [#/Vol] 134 10*3/uL Low 150-450 [facility] Platelet countOrdered By: Korina Danielson on 12-02-2024 Platelets (Bld) [#/Vol] 113 10*3/uL Low 150-450 [facility] Potassium measurement (mass/ volume)Ordered By: Rasheed Canela on 12-02-2024 Potassium (Unsp spec) [Mass/Vol] 4.6 mmol/L 3.3-5.1 [facility] Potassium measurement (mass/ volume)Ordered By: Nickie Danielson on 12-02-2024 Potassium (Unsp spec) [Mass/Vol] 4.8 mmol/L 3.3-5.1 [facility] Prothrombin timeOrdered By: Rasheed Canela on 12-02-2024 PT Coag (PPP) [Time] 14.6 s 11.7-14.9 [facility] RBC Auto (Bld) [#/Vol]Ordere d By: Rasheed Canela on 12-02-2024 RBC (Bld) [#/Vol] 3.81 10*6/uL Low 4.6-6.2 [facility] RBC Auto (Bld) [#/Vol]Ordere d By: Nickie Danielson on 12-02-2024 RBC (Bld) [#/Vol] 3.52 10*6/uL Low 4.6-6.2 [facility] Serum creatinine measurement (mass/volume)Ordered By: Rasheed Canela on 12-02-2024 Creatinine [Mass/Vol] 2.90 mg/dL High 0.70-1.20 [facility] Serum creatinine measurement (mass/volume)Ordered By: Nickie Danielson on 12-02-2024 Creatinine [Mass/Vol] 2.93 mg/dL High 0.70-1.20 [facility] Serum glucose measurement (m ass/volume)Ordered By: Rasheed Canela on 12-02-2024 Glucose [Mass/Vol] 175 mg/dL High 70-99 [facility] Serum glucose measurement (m ass/volume)Ordered By: Nickie Danielson on 12-02-2024 Glucose [Mass/Vol] 138 mg/dL High 70-99 [facility] Serum or plasma calcium francine urement (mass/volume)Ordered By: Rasheed Canela on 12-02-2024 Calcium [Mass/Vol] 9.1 mg/dL 7.6-11.0 [facility] Serum or plasma calcium francine urement (mass/volume)Ordered By: Nickie Danielson on 12-02-2024 Calcium [Mass/Vol] 9.3 mg/dL 7.6-11.0 [facility] Serum or plasma urea nitroge n measurement (mass/volume)Ordered By: Rasheed Canela on 12-02-2024 Urea nitrogen [Mass/Vol] 52 mg/dL High 4-19 [facility] Serum or plasma urea nitroge n measurement (mass/volume)Ordered By: Nickie Danielson on 12-02-2024 Urea nitrogen [Mass/Vol] 50 mg/dL High 08-19 [facility] Sodium levelOrdered By: Rasheed Canela on 12-02-2024 Sodium [Moles/Vol] 131 mmol/L Low 133-145 [facility] Sodium levelOrdered By: Johanna Danielson on 12-02-2024 Sodium [Moles/Vol] 133 mmol/L 133-145 [facility] White blood cell (WBC) count Ordered By: Rasheed Canela on 12-02-2024 WBC (Bld) [#/Vol] 12.7 10*3/uL High 4.4-11.0 [facility] White blood cell (WBC) count Ordered By: Nickie Danielson on 12-02-2024 WBC (Bld) [#/Vol] 11.2 10*3/uL High 4.4-11.0 [facility] 12 Lead EKGon 12-01-2024 12 Lead EKG Normal [facility] Bedside Glucoseon 12-01-2024 FINGERSTICK GLU 148 mg/dL High 74-106 [facility] Comment on above: Result Comment: WILDA GEMENT OF PATIENT CARE PER NURSING PROTOCOL Performed By: #### L 501.080 ####[facility] [id number] [facility] [address] FINGERSTICK GLU 203 mg/dL High 74-106 [facility] Comment on above: Result Comment: WILDA GEMENT OF PATIENT CARE PER NURSING PROTOCOL Performed By: #### L 501.080 ####[facility] [id number] [facility] [facility] [address] FINGERSTICK GLU 153 mg/dL High -106 [facility] Comment on above: Result Comment: WILDA GEMENT OF PATIENT CARE PER NURSING PROTOCOL Performed By: #### L 501.080 ####[facility] [address] [place], [address] FINGERSTICK GLU 187 mg/dL High 74-106 [facility] Comment on above: Result Comment: WILDA GEMENT OF PATIENT CARE PER NURSING PROTOCOL Performed By: #### L 501.080 ####[facility] [address] [place], [address] FINGERSTICK GLU 223 mg/dL High 74-106 [facility] Comment on above: Result Comment: WILDA GEMENT OF PATIENT CARE PER NURSING PROTOCOL Performed By: #### L 501.080 ####[facility] [address] [place], [address] Bilirubin, totalOrdered By: Jose Hay on 12-01-2024 Bilirubin [Mass/Vol] 1.07 mg/dL 0.00-1.30 [facility] CBC-Complete Blood Cnt No Di ffon 12-01-2024 Erythrocyte distribution width (RBC) [Ratio] 14.0 % Normal 11.6-14.6 [facility] Comment on above: Performed By: #### L 100.0500, L500.4050 ####[facility] [address] [place], [address] Hematocrit (Bld) [Volume fraction] 33.2 % Low 40-54 [facility] Comment on above: Performed By: #### L 100.0500, L500.4050 ####[facility] [address] [place], [address] Hemoglobin (Bld) [Mass/Vol] 10.8 g/dL Low 13.0-16.5 [facility] Comment on above: Performed By: #### L 100.0500, L500.4050 ####[facility] [address] [place], [address] MCH (RBC) [Entitic mass] 29.3 pg Normal 27.0-32.0 [facility] Comment on above: Performed By: #### L 100.0500, L500.4050 ####[facility] [address] [place], [address] MCHC (RBC) [Mass/Vol] 32.5 g/dL Normal 32-36 [facility] Comment on above: Performed By: #### L 100.0500, L500.4050 ####[facility] [address] [place], [address] MCV (RBC) [Entitic vol] 90.2 fL Normal 80-94 [facility] Comment on above: Performed By: #### L 100.0500, L500.4050 ####[facility] [address] [place], [address] Platelet mean volume (Bld) [Entitic vol] 12.7 fL High 6.2-12.0 [facility] Comment on above: Performed By: #### L 100.0500, L500.4050 ####[facility] [address] [place], [address] Platelets (Bld) [#/Vol] 142 10*3/uL Low 150-450 [facility] Comment on above: Performed By: #### L 100.0500, L500.4050 ####[facility] [address] [place], [address] RBC (Bld) [#/Vol] 3.68 10*6/uL Low 4.6-6.2 [facility] Comment on above: Performed By: #### L 100.0500, L500.4050 ####[facility] [address] [place], [address] RDW SD 45.8 fl High 35.1-43.9 [facility] Comment on above: Performed By: #### L 100.0500, L500.4050 ####[facility] [address] [place], [address] WBC (Bld) [#/Vol] 14.6 10*3/uL High 4.4-11.0 [facility] Comment on above: Performed By: #### L 100.0500, L500.4050 ####[facility] [address] [place], [address] Cardiac rehabilitation repor tOrdered By: Natacha Fermin on 12-01-2024 Study report [facility] Comprehensive Metabolic Prof ilon 12-01-2024 Albumin [Mass/Vol] 3.7 g/dL Normal 3.4-4.8 [facility] Comment on above: Performed By: #### L 100.0500, L500.4050 ####[facility] [address] [place], [address] Albumin/Globulin [Mass ratio] 1.5 {ratio} Normal 0.9-2.4 [facility] Comment on above: Performed By: #### L 100.0500, L500.4050 ####[facility] [address] [place], [address] ALK PHOS 82 U/L Normal 40-129 [facility] Comment on above: Performed By: #### L 100.0500, L500.4050 ####[facility] [address] [place], [address] ALT [Catalytic activity/Vol] 77 U/L High <=46 [facility] Comment on above: Performed By: #### L 100.0500, L500.4050 ####[facility] [address] [place], [address] AST [Catalytic activity/Vol] 497 U/L High <=37 [facility] Comment on above: Performed By: #### L 100.0500, L500.4050 ####[facility] [address] [place], [address] Bilirubin [Mass/Vol] 1.07 mg/dL Normal 0.00-1.30 [facility] Comment on above: Performed By: #### L 100.0500, L500.4050 ####[facility] [address] [place], [address] BUN/CRE 14.2 RATIO Normal 10-20 [facility] Comment on above: Performed By: #### L 100.0500, L500.4050 ####[facility] [address] [place], [address] Calcium [Mass/Vol] 8.7 mg/dL Normal 7.6-11.0 [facility] Comment on above: Performed By: #### L 100.0500, L500.4050 ####[facility] [address] [place], [address] Chloride [Moles/Vol] 100 mmol/L Normal 98-108 [facility] Comment on above: Performed By: #### L 100.0500, L500.4050 ####[facility] [address] [place], [address] CO2 [Moles/Vol] 20.3 mmol/L Low 21.0-32.0 [facility] Comment on above: Performed By: #### L 100.0500, L500.4050 ####[facility] [address] [place], [address] Creatinine [Mass/Vol] 3.16 mg/dL High 0.70-1.20 [facility] Comment on above: Performed By: #### L 100.0500, L500.4050 ####[facility] [address] [place], [address] ECRCL 23.23 ml/min Low 50-250 [facility] Comment on above: Performed By: #### L 100.0500, L500.4050 ####[facility] [address] [place], [address] GAP 14 Normal 5-15 [facility] Comment on above: Performed By: #### L 100.0500, L500.4050 ####[facility] [address] [place], [address] GFR/1.73 sq M.predicted among non-blacks MDRD (S/P/Bld) [Vol rate/Area] 19 mL/min/{1.73_m2} Low >60 [facility] Comment on above: Result Comment: mL/m in/1.73m2 CKD-EPI Creatinine Equation (2020) Performed By: #### L 100.0500, L500.4050 ####[facility] [address] [place], [address] Globulin (S) [Mass/Vol] 2.4 g/dL Normal 2.2-4.2 [facility] Comment on above: Performed By: #### L 100.0500, L500.4050 ####[facility] [address] [place], [address] Glucose [Mass/Vol] 157 mg/dL High 70-99 [facility] Comment on above: Performed By: #### L 100.0500, L500.4050 ####[facility] [address] [place], [address] Potassium [Moles/Vol] 5.0 mmol/L Normal 3.3-5.1 [facility] Comment on above: Performed By: #### L 100.0500, L500.4050 ####[facility] [address] [place], [address] Sodium [Moles/Vol] 134 mmol/L Normal 133-145 [facility] Comment on above: Performed By: #### L 100.0500, L500.4050 ####[facility] [address] [place], [address] T PROT 6.0 g/dL Normal 5.9-8.4 [facility] Comment on above: Performed By: #### L 100.0500, L500.4050 ####[facility] [address] [place], [address] Urea nitrogen [Mass/Vol] 45 mg/dL High 4-19 [facility] Comment on above: Performed By: #### L 100.0500, L500.4050 ####[facility] [address] [place], [address] Echo Limited w/Contraston Echo Limited w/Contrast Normal [facility] Electrocardiogram reportOrde red By: Marcin Araujo on 12-01-2024 EKG study [facility] Work Phone: HH, Hemoglobin AND Hematocri ton 12-01-2024 Hematocrit (Bld) [Volume fraction] 32.7 % Low 40-54 [facility] Comment on above: Performed By: #### L 100.0600 ####[facility] [address] [place], [address] Hemoglobin (Bld) [Mass/Vol] 10.6 g/dL Low 13.0-16.5 [facility] Comment on above: Performed By: #### L 100.0600 ####[facility] [address] [place], [address] Limited echocardiogram repor tOrdered By: Lance Espino on 12-01-2024 Study report [facility] Other Phone: No Panel InformationOrdered By: Jose Hay on 12-01-2024 497 U/L High <38 [facility] STROKE Brain/Head without Co nton 12-01-2024 STROKE Brain/Head without Cont Normal [facility] Serum globulin measurementOr dered By: Jose Hay on 12-01-2024 Globulin (S) [Mass/Vol] 2.4 g/dL 2.2-4.2 [facility] Serum or plasma alanine guerrero otransferase (ALT) measurementOrdered By: Jose Hya on 12-01-2024 ALT [Catalytic activity/Vol] 77 U/L High <47 [facility] Serum or plasma albumin francine urement (mass/volume)Ordered By: Jose Hay on 12-01-2024 Albumin [Mass/Vol] 3.7 g/dL 3.4-4.8 [facility] Serum or plasma albumin/glob ulin mass ratioOrdered By: Jose Jose Armando on 12-01-2024 Albumin/Globulin [Mass ratio] 1.5 {ratio} 0.9-2.4 [facility] Serum or plasma alkaline bell sphatase measurementOrdered By: Josemorro Hay on 12-01-2024 ALP [Catalytic activity/Vol] 82 U/L 40-129 [facility] Total proteinOrdered By: Emmanuel Hay on 12-01-2024 Protein [Mass/Vol] 6.0 g/dL 5.9-8.4 [facility] ACT Activated Clotting Timeo n 11-30-2024 ACTk CLOT TIME 187 sec High 74-137 [facility] Comment on above: Performed By: #### L 9100.0100 ####[facility] [address] [place], [place], [id number] ACTk CLOT TIME 176 sec High 74-137 [facility] Comment on above: Performed By: #### L 9100.0100 ####[facility] [address] [place], [place], [address] Absolute lymphocyte countOrd ered By: Isael Bernabe on 11-30-2024 Lymphocytes Auto (Unsp spec) [#/Vol] 1.93 10*3/uL 0.83-4.51 [facility] Activated partial thrombopla stin time (aPTT) in platelet poor plasma by coagulation aOrdered By: Isael Bernabe on 11-30-2024 aPTT Coag (PPP) [Time] 112.9 s High 24.1-36.2 [facility] Anion gap in Serum or Plasma Ordered By: Isael Bernabe on 11-30-2024 Anion gap [Moles/Vol] 19 mmol/L High 5-15 [facility] Automated lymphocyte count a s percentage of total leukocytesOrdered By: Isael Bernabe on 11-30-2024 Lymphocytes/100 WBC Auto (Unsp spec) 10.1 % Low 19-41 [facility] BUN/creatinine ratioOrdered By: Isael Bernabe on 11-30-2024 Urea nitrogen/Creatinine [Mass ratio] 14.4 mg/mg 10- [facility] Basic Metabolic Profile (BMP )on 11-30-2024 BUN/CRE 14.4 RATIO Normal 02-19 [facility] Comment on above: Performed By: #### L 501.4021, L300.3900, L300.4310, L100.0100, L500.2500 ####[facility] [address] [place], [address] Calcium [Mass/Vol] 9.5 mg/dL Normal 7.6-11.0 [facility] Comment on above: Performed By: #### L 501.4021, L300.3900, L300.4310, L100.0100, L500.2500 ####[facility] [address] [place], [address] Chloride [Moles/Vol] 98 mmol/L Normal 98-108 [facility] Comment on above: Performed By: #### L 501.4021, L300.3900, L300.4310, L100.0100, L500.2500 ####[facility] [address] [place], [address] CO2 [Moles/Vol] 18.3 mmol/L Low 21.0-32.0 [facility] Comment on above: Performed By: #### L 501.4021, L300.3900, L300.4310, L100.0100, L500.2500 ####[facility] [address] [place], [address] Creatinine [Mass/Vol] 3.10 mg/dL High 0.70-1.20 [facility] Comment on above: Performed By: #### L 501.4021, L300.3900, L300.4310, L100.0100, L500.2500 ####[facility] [address] [place], [address] GAP 19 High 5-15 [facility] Comment on above: Performed By: #### L 501.4021, L300.3900, L300.4310, L100.0100, L500.2500 ####[facility] [address] [place], [address] GFR/1.73 sq M.predicted among non-blacks MDRD (S/P/Bld) [Vol rate/Area] 20 mL/min/{1.73_m2} Low >60 [facility] Comment on above: Result Comment: mL/m in/1.73m2 CKD-EPI Creatinine Equation (2020) Performed By: #### L 501.4021, L300.3900, L300.4310, L100.0100, L500.2500 ####[facility] [address] [place], [address] Glucose [Mass/Vol] 328 mg/dL High 70-99 [facility] Comment on above: Performed By: #### L 501.4021, L300.3900, L300.4310, L100.0100, L500.2500 ####[facility] [address] [place], [address] Potassium [Moles/Vol] 4.4 mmol/L Normal 3.3-5.1 [facility] Comment on above: Performed By: #### L 501.4021, L300.3900, L300.4310, L100.0100, L500.2500 ####[facility] [address] [place], [address] Sodium [Moles/Vol] 135 mmol/L Normal 133-145 [facility] Comment on above: Performed By: #### L 501.4021, L300.3900, L300.4310, L100.0100, L500.2500 ####[facility] [address] [place], [address] Urea nitrogen [Mass/Vol] 45 mg/dL High 4-19 [facility] Comment on above: Performed By: #### L 501.4021, L300.3900, L300.4310, L100.0100, L500.2500 ####[facility] [address] [place], [address] Basophil percentageOrdered B y: Isael Bernabe on 11-30-2024 Basophils/100 WBC (Bld) 0.2 % 0-1 [facility] Bedside Glucoseon 11-30-2024 FINGERSTICK GLU 167 mg/dL High 74-106 [facility] Comment on above: Result Comment: WILDA BARROSO OF PATIENT CARE PER NURSING PROTOCOL Performed By: #### L 501.080 ####[facility] [address] [place], [address] CBC W/Diff, Automatedon 11-02 Absolute Lymph 1.93 X10 3/uL Normal 0.83-4.51 [facility] Comment on above: Performed By: #### L 501.4021, L300.3900, L300.4310, L100.0100, L500.2500 ####[facility] [address] [place], [address] Absolute Neut 15.5 X10 3/uL High 2.0-7.7 [facility] Comment on above: Performed By: #### L 501.4021, L300.3900, L300.4310, L100.0100, L500.2500 ####[facility] [address] [place], [address] Basophils/100 WBC (Bld) 0.2 % Normal 0-1 [facility] Comment on above: Performed By: #### L 501.4021, L300.3900, L300.4310, L100.0100, L500.2500 ####[facility] [address] [place], [address] Eosinophils/100 WBC (Bld) 0.4 % Normal 0-5 [facility] Comment on above: Performed By: #### L 501.4021, L300.3900, L300.4310, L100.0100, L500.2500 ####[facility] [address] [place], [address] Erythrocyte distribution width (RBC) [Ratio] 13.5 % Normal 11.6-14.6 [facility] Comment on above: Performed By: #### L 501.4021, L300.3900, L300.4310, L100.0100, L500.2500 ####[facility] [address] [place], [address] Hematocrit (Bld) [Volume fraction] 39.6 % Low 40-54 [facility] Comment on above: Performed By: #### L 501.4021, L300.3900, L300.4310, L100.0100, L500.2500 ####[facility] [address] [place], [address] Hemoglobin (Bld) [Mass/Vol] 12.5 g/dL Low 13.0-16.5 [facility] Comment on above: Performed By: #### L 501.4021, L300.3900, L300.4310, L100.0100, L500.2500 ####[facility] [address] [place], [address] IG% 0.700 Normal 0.0-0.9 [facility] Comment on above: Result Comment: IG% - Immature Granulocytes (promyelocytes, myelocytes andmetamyelocytes) > 1% indicates that a LEFT SHIFT is Present. Performed By: #### L 501.4021, L300.3900, L300.4310, L100.0100, L500.2500 ####[facility] [address] [place], [address] Lymphocytes/100 WBC (Bld) 10.1 % Low 19-41 [facility] Comment on above: Performed By: #### L 501.4021, L300.3900, L300.4310, L100.0100, L500.2500 ####[facility] [address] [place], [address] MCH (RBC) [Entitic mass] 29.3 pg Normal 27.0-32.0 [facility] Comment on above: Performed By: #### L 501.4021, L300.3900, L300.4310, L100.0100, L500.2500 ####[facility] [address] [place], [address] MCHC (RBC) [Mass/Vol] 31.6 g/dL Low 32-36 [facility] Comment on above: Performed By: #### L 501.4021, L300.3900, L300.4310, L100.0100, L500.2500 ####[facility] [address] [place], [address] MCV (RBC) [Entitic vol] 93.0 fL Normal 80-94 [facility] Comment on above: Performed By: #### L 501.4021, L300.3900, L300.4310, L100.0100, L500.2500 ####[facility] [address] [place], [address] Monocytes/100 WBC (Bld) 7.7 % Normal 0-10 [facility] Comment on above: Performed By: #### L 501.4021, L300.3900, L300.4310, L100.0100, L500.2500 ####[facility] [address] [place], [address] Neutrophils/100 WBC (Bld) 80.9 % High 47-70 [facility] Comment on above: Performed By: #### L 501.4021, L300.3900, L300.4310, L100.0100, L500.2500 ####[facility] [address] [place], [address] Nucleated RBC (Bld) [#/Vol] 0.1 10*3/uL Normal 0-5 [facility] Comment on above: Performed By: #### L 501.4021, L300.3900, L300.4310, L100.0100, L500.2500 ####[facility] [address] [place], [address] Platelet mean volume (Bld) [Entitic vol] 13.7 fL High 6.2-12.0 [facility] Comment on above: Performed By: #### L 501.4021, L300.3900, L300.4310, L100.0100, L500.2500 ####[facility] [address] [place], [address] Platelets (Bld) [#/Vol] 168 10*3/uL Normal 150-450 [facility] Comment on above: Performed By: #### L 501.4021, L300.3900, L300.4310, L100.0100, L500.2500 ####[facility] [address] [place], [address] RBC (Bld) [#/Vol] 4.26 10*6/uL Low 4.6-6.2 [facility] Comment on above: Performed By: #### L 501.4021, L300.3900, L300.4310, L100.0100, L500.2500 ####[facility] [address] [place], [address] RDW SD 45.9 fl High 35.1-43.9 [facility] Comment on above: Performed By: #### L 501.4021, L300.3900, L300.4310, L100.0100, L500.2500 ####[facility] [address] [place], [address] WBC (Bld) [#/Vol] 19.2 10*3/uL High 4.4-11.0 [facility] Comment on above: Performed By: #### L 501.4021, L300.3900, L300.4310, L100.0100, L500.2500 ####[facility] [address] [place], [address] CBC-Complete Blood Cnt No Di ffon 11-30-2024 HCT Normal 40-54 [facility] Comment on above: Result Comment: NO S PECIMEN COLLECTED Performed By: #### L 100.0500 ####[facility] [address] [place], [address] HGB Normal 13.0-16.5 [facility] Comment on above: Result Comment: NO S PECIMEN COLLECTED Performed By: #### L 100.0500 ####[facility] [address] [place], [address] MCH Normal 27.0-32.0 [facility] Comment on above: Result Comment: NO S PECIMEN COLLECTED Performed By: #### L 100.0500 ####[facility] [address] [place], [address] MCHC Normal 32-36 [facility] Comment on above: Result Comment: NO S PECIMEN COLLECTED Performed By: #### L 100.0500 ####[facility] [address] [place], [address] MCV Normal 80-94 [facility] Comment on above: Result Comment: NO S PECIMEN COLLECTED Performed By: #### L 100.0500 ####[facility] [address] [place], [address] PLT Normal 150-450 [facility] Comment on above: Result Comment: NO S PECIMEN COLLECTED Performed By: #### L 100.0500 ####[facility] [address] [place], [address] RBC Normal 4.6-6.2 [facility] Comment on above: Result Comment: NO S PECIMEN COLLECTED Performed By: #### L 100.0500 ####[facility] [address] [place], [address] RDW CV Normal 11.6-14.6 [facility] Comment on above: Result Comment: NO S PECIMEN COLLECTED Performed By: #### L 100.0500 ####[facility] [address] [place], [address] RDW SD Normal 35.1-43.9 [facility] Comment on above: Result Comment: NO S PECIMEN COLLECTED Performed By: #### L 100.0500 ####[facility] [address] [place], [address] WBC Normal 4.4-11.0 [facility] Comment on above: Result Comment: NO S PECIMEN COLLECTED Performed By: #### L 100.0500 ####[facility] [address] [place], [address] Carbon dioxide, total [Moles /volume] in Central venous bloodOrdered By: Isael Bernabe on 11-30-2024 CO2 [Moles/Vol] 18.3 mmol/L Low 21.0-32.0 [facility] Chest 1 View (Portable)on Chest 1 View (Portable) Normal [facility] Chloride assayOrdered By: Jaylen Bernabe on 11-30-2024 Chloride [Moles/Vol] 98 mmol/L 98-108 [facility] Consultation - Cardiologyon 11-30-2024 Consultation - Cardiology Normal [facility] Emergency Department Summary on 11-30-2024 Emergency Department Summary Normal [facility] Eosinophil percentageOrdered By: Isael Bernabe on 11-30-2024 Eosinophils/100 WBC (Bld) 0.4 % 0-5 [facility] Erythrocyte distribution wid th ratioOrdered By: Isael Bernabe on 11-30-2024 Erythrocyte distribution width (RBC) [Ratio] 13.5 % 11.6-14.6 [facility] Erythrocyte distribution wid th standard deviationOrdered By: Isael Bernabe on 11-30-2024 Erythrocyte distribution width (RBC) [Ratio] 45.9 fl High 35.1-43.9 [facility] Glomerular filtration rate ( GFR) estimation/1.73 sq m using serum, plasma, or whole bOrdered By: Isael Bernabe on 11-30-2024 GFR/1.73 sq M.predicted among non-blacks MDRD (S/P/Bld) [Vol rate/Area] 20 mL/min/{1.73_m2} Low >60 [facility] H AND P Exam - Hospitaliston 11-30-2024 H&P Exam - Hospitalist Normal [facility] Hematocrit Auto (Bld) [Volum e fraction]Ordered By: Isael Bernabe on 11-30-2024 Hematocrit (Bld) [Volume fraction] 39.6 % Low 40-54 [facility] Hemoglobin A1con 11-30-2024 HbA1c (Bld) [Mass fraction] 7.0 % High <=5.6 [facility] Comment on above: Result Comment: Norm al < 5.7 % Prediabetic 5.7 - 6.4 % Diabetic >or= 6.5 % Please note range changes. Performed By: #### L 501.9912 ####[facility] [address] [place], [address] Hemoglobin A1c percentageOrd ered By: Abraham Ridley on 11-30-2024 HbA1c (Bld) [Mass fraction] 7.0 % High <5.7 [facility] Hemoglobin measurementOrdere d By: Isael Bernabe on 11-30-2024 Hemoglobin (Bld) [Mass/Vol] 12.5 g/dL Low 13.0-16.5 [facility] Immature granulocytes/100 WB C Auto (Bld)Ordered By: Isael Bernabe on 11-30-2024 Immature granulocytes/100 WBC (Bld) 0.700 % 0.0-0.9 [facility] L501.4021on 11-30-2024 Trop T High Sen 61 ng/L Invalid Interpretation Code <=22 [facility] Comment on above: Result Comment: Crit ical Result(s) Called at: 1621 by: MOISE MEDINA??Results read back by same. Performed By: #### L 501.4021, L300.3900, L300.4310, L100.0100, L500.2500 ####[facility] [address] [place], [place], [address] MCV (mean corpuscular volume ) determinationOrdered By: Isael Bernabe on 11-30-2024 MCV (RBC) [Entitic vol] 93.0 fL 80-94 [facility] MR/QUALITYon 11-30-2024 MR/QUALITY Normal [facility] Mean corpuscular hemoglobin (MCH) determinationOrdered By: Lafayette Florecita on 11-30-2024 MCH (RBC) [Entitic mass] 29.3 pg 27.0-32.0 [facility] Monocyte percentageOrdered B y: Isael Alexa on 11-30-2024 Monocytes/100 WBC (Bld) 7.7 % 0-10 [facility] Neutrophil percentageOrdered By: Lafayette Florecita on 11-30-2024 Neutrophils/100 WBC (Bld) 80.9 % High 47-70 [facility] Partial Thromboplast Timeon 11-30-2024 aPTT Coag (Bld) [Time] 112.9 s Invalid Interpretation Code 24.1-36.2 [facility] Comment on above: Result Comment: CRIT ICAL VALUE CALLED TO CAITLIN ANTOINE11/30/24 1720 Krysta Turcios.RESULTS READ BACK BY SAME. Performed By: #### L 501.4021, L300.3900, L300.4310, L100.0100, L500.2500 ####[facility] [id number] [place], [place], [id number] Platelet countOrdered By: Jaylen Bernabe on 11-30-2024 Platelets (Bld) [#/Vol] 168 10*3/uL 150-450 [facility] [facility] Potassium measurement (mass/ volume)Ordered By: Isael Bernabe on 11-30-2024 Potassium (Unsp spec) [Mass/Vol] 4.4 mmol/L 3.3-5.1 [facility] Prothrombin Time w/INRon INR Coag (PPP) [Relative time] 1.3 {INR} Normal [facility] Comment on above: Performed By: #### L 501.4021, L300.3900, L300.4310, L100.0100, L500.2500 ####[facility] [address] [place], [place], [phone] PT Coag (PPP) [Time] 16.1 s High 11.7-14.9 [facility] Comment on above: Performed By: #### L 501.4021, L300.3900, L300.4310, L100.0100, L500.2500 ####[facility] [address] [place], [place], [phone] Prothrombin timeOrdered By: Isael Bernabe on 11-30-2024 PT Coag (PPP) [Time] 16.1 s High 11.7-14.9 [facility] RBC Auto (Bld) [#/Vol]Ordere d By: Isael Bernabe on 11-30-2024 RBC (Bld) [#/Vol] 4.26 10*6/uL Low 4.6-6.2 [facility] Serum creatinine measurement (mass/volume)Ordered By: Isael Bernabe on 11-30-2024 Creatinine [Mass/Vol] 3.10 mg/dL High 0.70-1.20 [facility] Serum glucose measurement (m ass/volume)Ordered By: Isael Bernabe on 11-30-2024 Glucose [Mass/Vol] 328 mg/dL High 70-99 [facility] Serum or plasma calcium francine urement (mass/volume)Ordered By: Isael Bernabe on 11-30-2024 Calcium [Mass/Vol] 9.5 mg/dL 7.6-11.0 [facility] Serum or plasma urea nitroge n measurement (mass/volume)Ordered By: Isael Bernabe on 11-30-2024 Urea nitrogen [Mass/Vol] 45 mg/dL High 4-19 [facility] Sodium levelOrdered By: Isael Bernabe on 11-30-2024 Sodium [Moles/Vol] 135 mmol/L 133-145 [facility] Troponin T HS 2 HRon 025 Trop T High Sen Normal <=22 [facility] Comment on above: Result Comment: [employer] crews via OM: Ordered Performed By: #### L 499.0042 ####[facility] [address] [place], [place], [id number] Troponin T HS 4 HRon 025 Trop T High Sen Normal <=22 [facility] Comment on above: Result Comment: [employer] crews via OM: Ordered Performed By: #### L 499.0043 ####[facility] [address] [place], [place], [phone] Troponin T.cardiac [Mass/vol ume] in Serum or Plasma by High sensitivity methodOrdered By: Isael Bernabe on 11-30-2024 Troponin T.cardiac High sensitivity method [Mass/Vol] 61 ng/L High <22 [facility] White blood cell (WBC) count Ordered By: Isael Bernabe on 11-30-2024 WBC (Bld) [#/Vol] 19.2 10*3/uL High 4.4-11.0 [facility] ACT Activated Clotting Timeo n 11-28-2024 ACTk CLOT TIME 205 sec High 74-137 [facility] Comment on above: Performed By: #### L 9100.0100 ####[facility] [address] [place], [place], [id number] ACTk CLOT TIME 227 sec High 74-137 [facility] Comment on above: Performed By: #### L 9100.0100 ####[facility] [address] [place], [address] Anion gap in Serum or Plasma Ordered By: Jose Hay on 11-28-2024 Anion gap [Moles/Vol] 13 mmol/L 5-15 [facility] BUN/creatinine ratioOrdered By: Jose Jose Armando on 11-28-2024 Urea nitrogen/Creatinine [Mass ratio] 15.2 mg/mg 10-20 [facility] Bilirubin, totalOrdered By: Jose Jose Armando on 11-28-2024 Bilirubin [Mass/Vol] 0.78 mg/dL 0.00-1.30 [facility] CBC-Complete Blood Cnt No Di ffon 11-28-2024 Erythrocyte distribution width (RBC) [Ratio] 13.6 % Normal 11.6-14.6 [facility] Comment on above: Performed By: #### L 100.0500, L500.4050 ####[facility] [address] [place], [address] Hematocrit (Bld) [Volume fraction] 35.3 % Low 40-54 [facility] Comment on above: Performed By: #### L 100.0500, L500.4050 ####[facility] [address] [place], [address] Hemoglobin (Bld) [Mass/Vol] 11.3 g/dL Low 13.0-16.5 [facility] Comment on above: Performed By: #### L 100.0500, L500.4050 ####[facility] [address] [place], [address] MCH (RBC) [Entitic mass] 29.4 pg Normal 27.0-32.0 [facility] Comment on above: Performed By: #### L 100.0500, L500.4050 ####[facility] [address] [place], [address] MCHC (RBC) [Mass/Vol] 32.0 g/dL Normal 32-36 [facility] Comment on above: Performed By: #### L 100.0500, L500.4050 ####[facility] [address] [place], [address] MCV (RBC) [Entitic vol] 91.7 fL Normal 80-94 [facility] Comment on above: Performed By: #### L 100.0500, L500.4050 ####[facility] [address] [place], [address] Platelet mean volume (Bld) [Entitic vol] 12.6 fL High 6.2-12.0 [facility] Comment on above: Performed By: #### L 100.0500, L500.4050 ####[facility] [address] [place], [address] Platelets (Bld) [#/Vol] 108 10*3/uL Low 150-450 [facility] Comment on above: Performed By: #### L 100.0500, L500.4050 ####[facility] [address] [place], [address] RBC (Bld) [#/Vol] 3.85 10*6/uL Low 4.6-6.2 [facility] Comment on above: Performed By: #### L 100.0500, L500.4050 ####[facility] [address] [place], [address] RDW SD 46.1 fl High 35.1-43.9 [facility] Comment on above: Performed By: #### L 100.0500, L500.4050 ####[facility] [address] [place], [address] WBC (Bld) [#/Vol] 7.1 10*3/uL Normal 4.4-11.0 [facility] Comment on above: Performed By: #### L 100.0500, L500.4050 ####[facility] [address] [place], [address] Carbon dioxide, total [Moles /volume] in Central venous bloodOrdered By: Jose Hay on 11-28-2024 CO2 [Moles/Vol] 23.7 mmol/L 21.0-32.0 [facility] Chloride assayOrdered By: Harsh Hay on 11-28-2024 Chloride [Moles/Vol] 102 mmol/L 98-108 [facility] Comprehensive Metabolic Prof ilon 11-28-2024 Albumin [Mass/Vol] 3.8 g/dL Normal 3.4-4.8 [facility] Comment on above: Performed By: #### L 100.0500, L500.4050 ####[facility] [address] [place], [address] Albumin/Globulin [Mass ratio] 1.4 {ratio} Normal 0.9-2.4 [facility] Comment on above: Performed By: #### L 100.0500, L500.4050 ####[facility] [address] [place], [address] ALK PHOS 93 U/L Normal 40-129 [facility] Comment on above: Performed By: #### L 100.0500, L500.4050 ####[facility] [address] [place], [address] ALT [Catalytic activity/Vol] 27 U/L Normal <=46 [facility] Comment on above: Result Comment: Hemo lysis present, Results??could be affected.?? Performed By: #### L 100.0500, L500.4050 ####[facility] [address] [place], [address] AST [Catalytic activity/Vol] 33 U/L Normal <=37 [facility] Comment on above: Result Comment: Hemo lysis present, Results??could be affected.?? Performed By: #### L 100.0500, L500.4050 ####[facility] [address] [place], [address] Bilirubin [Mass/Vol] 0.78 mg/dL Normal 0.00-1.30 [facility] Comment on above: Performed By: #### L 100.0500, L500.4050 ####[facility] [address] [place], [address] BUN/CRE 15.2 RATIO Normal 10-20 [facility] Comment on above: Performed By: #### L 100.0500, L500.4050 ####[facility] [address] [place], [address] Calcium [Mass/Vol] 9.2 mg/dL Normal 7.6-11.0 [facility] Comment on above: Performed By: #### L 100.0500, L500.4050 ####[facility] [address] [place], [address] Chloride [Moles/Vol] 102 mmol/L Normal 98-108 [facility] Comment on above: Performed By: #### L 100.0500, L500.4050 ####[facility] [address] [place], [address] CO2 [Moles/Vol] 23.7 mmol/L Normal 21.0-32.0 [facility] Comment on above: Performed By: #### L 100.0500, L500.4050 ####[facility] [address] [place], [address] Creatinine [Mass/Vol] 1.93 mg/dL High 0.70-1.20 [facility] Comment on above: Performed By: #### L 100.0500, L500.4050 ####[facility] [address] [place], [address] ECRCL 37.66 ml/min Low 50-250 [facility] Comment on above: Performed By: #### L 100.0500, L500.4050 ####[facility] [address] [place], [address] GAP 13 Normal 5-15 [facility] Comment on above: Performed By: #### L 100.0500, L500.4050 ####[facility] [address] [place], [address] GFR/1.73 sq M.predicted among non-blacks MDRD (S/P/Bld) [Vol rate/Area] 35 mL/min/{1.73_m2} Low >60 [facility] Comment on above: Result Comment: mL/m in/1.73m2 CKD-EPI Creatinine Equation (2020) Performed By: #### L 100.0500, L500.4050 ####[facility] [address] [place], [address] Globulin (S) [Mass/Vol] 2.8 g/dL Normal 2.2-4.2 [facility] Comment on above: Performed By: #### L 100.0500, L500.4050 ####[facility] [address] [place], [address] Glucose [Mass/Vol] 130 mg/dL High 70-99 [facility] Comment on above: Performed By: #### L 100.0500, L500.4050 ####[facility] [address] [place], [address] Potassium [Moles/Vol] 4.4 mmol/L Normal 3.3-5.1 [facility] Comment on above: Result Comment: Hemo lysis present, Results??could be affected.?? Performed By: #### L 100.0500, L500.4050 ####[facility] [address] [place], [address] Sodium [Moles/Vol] 139 mmol/L Normal 133-145 [facility] Comment on above: Performed By: #### L 100.0500, L500.4050 ####[facility] [address] [place], [place], [address] T PROT 6.6 g/dL Normal 5.9-8.4 [facility] Comment on above: Performed By: #### L 100.0500, L500.4050 ####[facility] [address] [place], [address] Urea nitrogen [Mass/Vol] 29 mg/dL High 4-19 [facility] Comment on above: Performed By: #### L 100.0500, L500.4050 ####[facility] [address] [place], [place], [id number] Erythrocyte distribution wid th ratioOrdered By: Jose Hay on 11-28-2024 Erythrocyte distribution width (RBC) [Ratio] 13.6 % 11.6-14.6 [facility] Erythrocyte distribution wid th standard deviationOrdered By: Jose Hay on 11-28-2024 Erythrocyte distribution width (RBC) [Ratio] 46.1 fl High 35.1-43.9 [facility] Glomerular filtration rate ( GFR) estimation/1.73 sq m using serum, plasma, or whole bOrdered By: Jose Hay on 11-28-2024 GFR/1.73 sq M.predicted among non-blacks MDRD (S/P/Bld) [Vol rate/Area] 35 mL/min/{1.73_m2} Low >60 [facility] Hematocrit Auto (Bld) [Volum e fraction]Ordered By: Jose Hay on 11-28-2024 Hematocrit (Bld) [Volume fraction] 35.3 % Low 40-54 [facility] Hemoglobin measurementOrdere d By: Jose Hay on 11-28-2024 Hemoglobin (Bld) [Mass/Vol] 11.3 g/dL Low 13.0-16.5 [facility] MCV (mean corpuscular volume ) determinationOrdered By: Jose Hay on 11-28-2024 MCV (RBC) [Entitic vol] 91.7 fL 80-94 [facility] Mean corpuscular hemoglobin (MCH) determinationOrdered By: Jose Hay on 11-28-2024 MCH (RBC) [Entitic mass] 29.4 pg 27.0-32.0 [facility] No Panel InformationOrdered By: Jose Hay on 11-28-2024 33 U/L <38 [facility] Platelet countOrdered By: Harsh Hay on 11-28-2024 Platelets (Bld) [#/Vol] 108 10*3/uL Low 150-450 [facility] Potassium measurement (mass/ volume)Ordered By: Jose Hay on 11-28-2024 Potassium (Unsp spec) [Mass/Vol] 4.4 mmol/L 3.3-5.1 [facility] RBC Auto (Bld) [#/Vol]Ordere d By: Jose Hay on 11-28-2024 RBC (Bld) [#/Vol] 3.85 10*6/uL Low 4.6-6.2 [facility] Serum creatinine measurement (mass/volume)Ordered By: Jose Hay on 11-28-2024 Creatinine [Mass/Vol] 1.93 mg/dL High 0.70-1.20 [facility] Serum globulin measurementOr dered By: Jose Hay on 11-28-2024 Globulin (S) [Mass/Vol] 2.8 g/dL 2.2-4.2 [facility] Serum glucose measurement (m ass/volume)Ordered By: Jose Hay on 11-28-2024 Glucose [Mass/Vol] 130 mg/dL High 70-99 [facility] Serum or plasma alanine guerrero otransferase (ALT) measurementOrdered By: Jose Hay on 11-28-2024 ALT [Catalytic activity/Vol] 27 U/L <47 [facility] Serum or plasma albumin francine urement (mass/volume)Ordered By: Jose Hay on 11-28-2024 Albumin [Mass/Vol] 3.8 g/dL 3.4-4.8 [facility] Serum or plasma albumin/glob ulin mass ratioOrdered By: Jose Hay on 11-28-2024 Albumin/Globulin [Mass ratio] 1.4 {ratio} 0.9-2.4 [facility] Serum or plasma alkaline bell sphatase measurementOrdered By: Jose Hay on 11-28-2024 ALP [Catalytic activity/Vol] 93 U/L 40-129 [facility] Serum or plasma calcium francine urement (mass/volume)Ordered By: Jose Hay on 11-28-2024 Calcium [Mass/Vol] 9.2 mg/dL 7.6-11.0 [facility] Serum or plasma urea nitroge n measurement (mass/volume)Ordered By: Jose Hay on 11-28-2024 Urea nitrogen [Mass/Vol] 29 mg/dL High 4-19 [facility] Sodium levelOrdered By: Ernst Hay on 11-28-2024 Sodium [Moles/Vol] 139 mmol/L 133-145 [facility] Total proteinOrdered By: Emmanuel Hay on 11-28-2024 Protein [Mass/Vol] 6.6 g/dL 5.9-8.4 [facility] White blood cell (WBC) count Ordered By: Jose Hay on 11-28-2024 WBC (Bld) [#/Vol] 7.1 10*3/uL 4.4-11.0 [facility] 12 Lead EKGon 11-27-2024 12 Lead EKG Normal [facility] Cardiac rehabilitation repor tOrdered By: Karrie Arceo on 11-27-2024 Study report [facility] Discharge Instructionon 07-2 Discharge Instruction Normal [facility] 12 Lead EKGon 11-26-2024 12 Lead EKG Normal [facility] Absolute lymphocyte countOrd ered By: Isael Bernabe on 11-26-2024 Lymphocytes Auto (Unsp spec) [#/Vol] 1.53 10*3/uL 0.83-4.51 [facility] Anion gap in Serum or Plasma Ordered By: Isael Bernabe on 11-26-2024 Anion gap [Moles/Vol] 15 mmol/L 5-15 [facility] Automated lymphocyte count a s percentage of total leukocytesOrdered By: Isael Bernabe on 11-26-2024 Lymphocytes/100 WBC Auto (Unsp spec) 16.7 % Low 19-41 [facility] BUN/creatinine ratioOrdered By: Isael Bernabe on 11-26-2024 Urea nitrogen/Creatinine [Mass ratio] 18.2 mg/mg 10- [facility] Basic Metabolic Profile (BMP )on 11-26-2024 BUN/CRE 18.2 RATIO Normal - [facility] Comment on above: Performed By: #### L 501.4021, L503.7505, L500.2500, L100.0100 ####[facility] [address] [place], [address] Calcium [Mass/Vol] 9.2 mg/dL Normal 7.6-11.0 [facility] Comment on above: Performed By: #### L 501.4021, L503.7505, L500.2500, L100.0100 ####[facility] [address] [place], [address] Chloride [Moles/Vol] 100 mmol/L Normal 98-108 [facility] Comment on above: Performed By: #### L 501.4021, L503.7505, L500.2500, L100.0100 ####[facility] [address] [place], [address] CO2 [Moles/Vol] 21.5 mmol/L Normal 21.0-32.0 [facility] Comment on above: Performed By: #### L 501.4021, L503.7505, L500.2500, L100.0100 ####[facility] [address] [place], [address] Creatinine [Mass/Vol] 2.34 mg/dL High 0.70-1.20 [facility] Comment on above: Performed By: #### L 501.4021, L503.7505, L500.2500, L100.0100 ####[facility] [address] [place], [address] ECRCL 31.97 ml/min Low 50-250 [facility] Comment on above: Performed By: #### L 501.4021, L503.7505, L500.2500, L100.0100 ####[facility] [address] [place], [address] GAP 15 Normal 5-15 [facility] Comment on above: Performed By: #### L 501.4021, L503.7505, L500.2500, L100.0100 ####[facility] [address] [place], [address] GFR/1.73 sq M.predicted among non-blacks MDRD (S/P/Bld) [Vol rate/Area] 28 mL/min/{1.73_m2} Low >60 [facility] Comment on above: Result Comment: mL/m in/1.73m2 CKD-EPI Creatinine Equation (2020) Performed By: #### L 501.4021, L503.7505, L500.2500, L100.0100 ####[facility] [address] [place], [address] Glucose [Mass/Vol] 275 mg/dL High 70-99 [facility] Comment on above: Performed By: #### L 501.4021, L503.7505, L500.2500, L100.0100 ####[facility] [address] [place], [address] Potassium [Moles/Vol] 4.4 mmol/L Normal 3.3-5.1 [facility] Comment on above: Performed By: #### L 501.4021, L503.7505, L500.2500, L100.0100 ####[facility] [address] [place], [address] Sodium [Moles/Vol] 137 mmol/L Normal 133-145 [facility] Comment on above: Performed By: #### L 501.4021, L503.7505, L500.2500, L100.0100 ####[facility] [address] [place], [address] Urea nitrogen [Mass/Vol] 43 mg/dL High 4-19 [facility] Comment on above: Performed By: #### L 501.4021, L503.7505, L500.2500, L100.0100 ####[facility] [address] [place], [address] Basophil percentageOrdered B y: Isael Bernabe on 11-26-2024 Basophils/100 WBC (Bld) 0.3 % 0-1 [facility] Brain/Head without Contrasto n 11-26-2024 Brain/Head without Contrast Normal [facility] CBC W/Diff, Automatedon 11-01 Absolute Lymph 1.53 X10 3/uL Normal 0.83-4.51 [facility] Comment on above: Performed By: #### L 501.4021, L503.7505, L500.2500, L100.0100 ####[facility] [address] [place], [address] Absolute Neut 6.6 X10 3/uL Normal 2.0-7.7 [facility] Comment on above: Performed By: #### L 501.4021, L503.7505, L500.2500, L100.0100 ####[facility] [address] [place], [address] Basophils/100 WBC (Bld) 0.3 % Normal 0-1 [facility] Comment on above: Performed By: #### L 501.4021, L503.7505, L500.2500, L100.0100 ####[facility] [address] [place], [address] Eosinophils/100 WBC (Bld) 1.3 % Normal 0-5 [facility] Comment on above: Performed By: #### L 501.4021, L503.7505, L500.2500, L100.0100 ####[facility] [address] [place], [address] Erythrocyte distribution width (RBC) [Ratio] 13.9 % Normal 11.6-14.6 [facility] Comment on above: Performed By: #### L 501.4021, L503.7505, L500.2500, L100.0100 ####[facility] [address] [place], [address] Hematocrit (Bld) [Volume fraction] 36.7 % Low 40-54 [facility] Comment on above: Performed By: #### L 501.4021, L503.7505, L500.2500, L100.0100 ####[facility] [address] [place], [address] Hemoglobin (Bld) [Mass/Vol] 11.8 g/dL Low 13.0-16.5 [facility] Comment on above: Performed By: #### L 501.4021, L503.7505, L500.2500, L100.0100 ####[facility] [address] [place], [address] IG% 0.400 Normal 0.0-0.9 [facility] Comment on above: Result Comment: IG% - Immature Granulocytes (promyelocytes, myelocytes andmetamyelocytes) > 1% indicates that a LEFT SHIFT is Present. Performed By: #### L 501.4021, L503.7505, L500.2500, L100.0100 ####[facility] [address] [place], [address] Lymphocytes/100 WBC (Bld) 16.7 % Low 19-41 [facility] Comment on above: Performed By: #### L 501.4021, L503.7505, L500.2500, L100.0100 ####[facility] [address] [place], [address] MCH (RBC) [Entitic mass] 29.2 pg Normal 27.0-32.0 [facility] Comment on above: Performed By: #### L 501.4021, L503.7505, L500.2500, L100.0100 ####[facility] [address] [place], [address] MCHC (RBC) [Mass/Vol] 32.2 g/dL Normal 32-36 [facility] Comment on above: Performed By: #### L 501.4021, L503.7505, L500.2500, L100.0100 ####[facility] [address] [place], [address] MCV (RBC) [Entitic vol] 90.8 fL Normal 80-94 [facility] Comment on above: Performed By: #### L 501.4021, L503.7505, L500.2500, L100.0100 ####[facility] [address] [place], [address] Monocytes/100 WBC (Bld) 9.5 % Normal 0-10 [facility] Comment on above: Performed By: #### L 501.4021, L503.7505, L500.2500, L100.0100 ####[facility] [address] [place], [address] Neutrophils/100 WBC (Bld) 71.8 % High 47-70 [facility] Comment on above: Performed By: #### L 501.4021, L503.7505, L500.2500, L100.0100 ####[facility] [address] [place], [address] Nucleated RBC (Bld) [#/Vol] 0 10*3/uL Normal 0-5 [facility] Comment on above: Performed By: #### L 501.4021, L503.7505, L500.2500, L100.0100 ####[facility] [address] [place], [address] Platelet mean volume (Bld) [Entitic vol] 12.8 fL High 6.2-12.0 [facility] Comment on above: Performed By: #### L 501.4021, L503.7505, L500.2500, L100.0100 ####[facility] [address] [place], [address] Platelets (Bld) [#/Vol] 132 10*3/uL Low 150-450 [facility] Comment on above: Performed By: #### L 501.4021, L503.7505, L500.2500, L100.0100 ####[facility] [address] [place], [address] RBC (Bld) [#/Vol] 4.04 10*6/uL Low 4.6-6.2 [facility] Comment on above: Performed By: #### L 501.4021, L503.7505, L500.2500, L100.0100 ####[facility] [address] [place], [address] RDW SD 46.6 fl High 35.1-43.9 [facility] Comment on above: Performed By: #### L 501.4021, L503.7505, L500.2500, L100.0100 ####[facility] [address] [place], [address] WBC (Bld) [#/Vol] 9.2 10*3/uL Normal 4.4-11.0 [facility] Comment on above: Performed By: #### L 501.4021, L503.7505, L500.2500, L100.0100 ####[facility] [address] [place], [address] Carbon dioxide, total [Moles /volume] in Central venous bloodOrdered By: Isael Bernabe on 11-26-2024 CO2 [Moles/Vol] 21.5 mmol/L 21.0-32.0 [facility] Chest 1 View (Portable)on Chest 1 View (Portable) Normal [facility] Chloride assayOrdered By: Jaylen Bernabe on 11-26-2024 Chloride [Moles/Vol] 100 mmol/L 98-108 [facility] Emergency Department Summary on 11-26-2024 Emergency Department Summary Normal [facility] Eosinophil percentageOrdered By: Isael Bernabe on 11-26-2024 Eosinophils/100 WBC (Bld) 1.3 % 0-5 [facility] Erythrocyte distribution wid th ratioOrdered By: Isael Bernabe on 11-26-2024 Erythrocyte distribution width (RBC) [Ratio] 13.9 % 11.6-14.6 [facility] Erythrocyte distribution wid th standard deviationOrdered By: Isael Bernabe on 11-26-2024 Erythrocyte distribution width (RBC) [Ratio] 46.6 fl High 35.1-43.9 [facility] Glomerular filtration rate ( GFR) estimation/1.73 sq m using serum, plasma, or whole bOrdered By: Isael Bernabe on 11-26-2024 GFR/1.73 sq M.predicted among non-blacks MDRD (S/P/Bld) [Vol rate/Area] 28 mL/min/{1.73_m2} Low >60 [facility] Hand Min 3 Viewson Hand Min 3 Views Normal [facility] Hematocrit Auto (Bld) [Volum e fraction]Ordered By: Isael Bernabe on 11-26-2024 Hematocrit (Bld) [Volume fraction] 36.7 % Low 40-54 [facility] Hemoglobin measurementOrdere d By: Isael Bernabe on 11-26-2024 Hemoglobin (Bld) [Mass/Vol] 11.8 g/dL Low 13.0-16.5 [facility] Immature granulocytes/100 WB C Auto (Bld)Ordered By: Isael Bernabe on 11-26-2024 Immature granulocytes/100 WBC (Bld) 0.400 % 0.0-0.9 [facility] Knee 4 or More Viewson 11-26 Knee 4 or More Views Normal [facility] Knee 4 or More Views Normal [facility] [id number] 11-26-2024 Trop T High Sen 18 ng/L Normal <=22 [facility] Comment on above: Performed By: #### L 501.4021, L503.7505, L500.2500, L100.0100 ####[facility] [address] [place], [address] MCV (mean corpuscular volume ) determinationOrdered By: Isael Bernabe on 11-26-2024 MCV (RBC) [Entitic vol] 90.8 fL 80-94 [facility] Mean corpuscular hemoglobin (MCH) determinationOrdered By: Isael Bernabe on 11-26-2024 MCH (RBC) [Entitic mass] 29.2 pg 27.0-32.0 [facility] Monocyte percentageOrdered B y: Isael Bernaeb on 11-26-2024 Monocytes/100 WBC (Bld) 9.5 % 0-10 [facility] Natriuretic peptide.B prohor efrem N-Terminal [Mass/volume] in Serum or PlasmaOrdered By: Isael Bernabe on 11-26-2024 Natriuretic peptide.B prohormone N-Terminal [Mass/Vol] 162 pg/mL <1800 [facility] Neutrophil percentageOrdered By: Isael Bernabe on 11-26-2024 Neutrophils/100 WBC (Bld) 71.8 % High 47-70 [facility] Platelet countOrdered By: Jaylen Bernabe on 11-26-2024 Platelets (Bld) [#/Vol] 132 10*3/uL Low 150-450 [facility] Potassium measurement (mass/ volume)Ordered By: Isael Bernabe on 11-26-2024 Potassium (Unsp spec) [Mass/Vol] 4.4 mmol/L 3.3-5.1 [facility] Pro- Brain NATRIURETIC PEPTI Sharon 11-26-2024 Natriuretic peptide B (Bld) [Mass/Vol] 162 pg/mL Normal <=1800 [facility] Comment on above: Result Comment: Hear t Failure Unlikely: < 300 pg/mLHeart Failure Likely< 50 Years: > 450 pg/mL50-75 Years: > 900 pg/mL>75 Years: > 1800 pg/mL Performed By: #### L 501.4021, L503.7505, L500.2500, L100.0100 ####[facility] [address] [place], [place], [id number] RBC Auto (Bld) [#/Vol]Ordere d By: Isael Bernabe on 11-26-2024 RBC (Bld) [#/Vol] 4.04 10*6/uL Low 4.6-6.2 [facility] Serum creatinine measurement (mass/volume)Ordered By: Isael Bernabe on 11-26-2024 Creatinine [Mass/Vol] 2.34 mg/dL High 0.70-1.20 [facility] Serum glucose measurement (m ass/volume)Ordered By: Isael Bernabe on 11-26-2024 Glucose [Mass/Vol] 275 mg/dL High 70-99 [facility] Serum or plasma calcium francine urement (mass/volume)Ordered By: Isael Bernabe on 11-26-2024 Calcium [Mass/Vol] 9.2 mg/dL 7.6-11.0 [facility] Serum or plasma urea nitroge n measurement (mass/volume)Ordered By: Isael Bernabe on 11-26-2024 Urea nitrogen [Mass/Vol] 43 mg/dL High 4-19 [facility] Sodium levelOrdered By: Isael Bernabe on 11-26-2024 Sodium [Moles/Vol] 137 mmol/L 133-145 [facility] Spine Cervical without Contr ason 11-26-2024 Spine Cervical without Contras Normal [facility] Troponin T HS 2 HRon 025 Trop T High Sen 20 ng/L Normal <=22 [facility] Comment on above: Performed By: #### L 499.0042 ####[facility] [address] [place], [address] Troponin T HS 4 HRon 025 Trop T High Sen Normal <=22 [facility] Comment on above: Result Comment: Canc elled via OM: Order cancelled - Patient discharged Performed By: #### L 499.0043 ####[facility] [address] [place], [address] Troponin T.cardiac [Mass/vol ume] in Serum or Plasma by High sensitivity methodOrdered By: Isael Bernabe on 11-26-2024 Troponin T.cardiac High sensitivity method [Mass/Vol] 20 ng/L <22 [facility] Troponin T.cardiac High sensitivity method [Mass/Vol] 18 ng/L <22 [facility] White blood cell (WBC) count Ordered By: Isael Bernabe on 11-26-2024 WBC (Bld) [#/Vol] 9.2 10*3/uL 4.4-11.0 [facility] Absolute lymphocyte countOrd ered By: Gustabo Pérez on 11-22-2024 Lymphocytes Auto (Unsp spec) [#/Vol] 1.37 10*3/uL 0.83-4.51 [facility] Anion gap in Serum or Plasma Ordered By: Gustabo Pérez on 11-22-2024 Anion gap [Moles/Vol] 15 mmol/L 5-15 [facility] Automated lymphocyte count a s percentage of total leukocytesOrdered By: Gustabo Pérez on 11-22-2024 Lymphocytes/100 WBC Auto (Unsp spec) 16.1 % Low 19- [facility] BUN/creatinine ratioOrdered By: Gustabo Pérez on 11-22-2024 Urea nitrogen/Creatinine [Mass ratio] 15.6 mg/mg 02-19 [facility] Basic Metabolic Profile (BMP )on 11-22-2024 BUN/CRE 15.6 RATIO Normal - [facility] Comment on above: Performed By: #### L 100.0100, L500.2500, L503.7505 ####[facility] [address] [place], [address] Calcium [Mass/Vol] 9.1 mg/dL Normal 7.6-11.0 [facility] Comment on above: Performed By: #### L 100.0100, L500.2500, L503.7505 ####[facility] [address] [place], [address] Chloride [Moles/Vol] 102 mmol/L Normal 98-108 [facility] Comment on above: Performed By: #### L 100.0100, L500.2500, L503.7505 ####[facility] [address] [place], [address] CO2 [Moles/Vol] 21.6 mmol/L Normal 21.0-32.0 [facility] Comment on above: Performed By: #### L 100.0100, L500.2500, L503.7505 ####[facility] [address] [place], [address] Creatinine [Mass/Vol] 2.51 mg/dL High 0.70-1.20 [facility] Comment on above: Performed By: #### L 100.0100, L500.2500, L503.7505 ####[facility] [address] [place], [address] GAP 15 Normal 5-15 [facility] Comment on above: Performed By: #### L 100.0100, L500.2500, L503.7505 ####[facility] [address] [place], [address] GFR/1.73 sq M.predicted among non-blacks MDRD (S/P/Bld) [Vol rate/Area] 25 mL/min/{1.73_m2} Low >60 [facility] Comment on above: Result Comment: mL/m in/1.73m2 CKD-EPI Creatinine Equation (2020) Performed By: #### L 100.0100, L500.2500, L503.7505 ####[facility] [address] [place], [address] Glucose [Mass/Vol] 262 mg/dL High 70-99 [facility] Comment on above: Performed By: #### L 100.0100, L500.2500, L503.7505 ####[facility] [address] [place], [address] Potassium [Moles/Vol] 4.8 mmol/L Normal 3.3-5.1 [facility] Comment on above: Performed By: #### L 100.0100, L500.2500, L503.7505 ####[facility] [address] [place], [address] Sodium [Moles/Vol] 139 mmol/L Normal 133-145 [facility] Comment on above: Performed By: #### L 100.0100, L500.2500, L503.7505 ####[facility] [address] [place], [address] Urea nitrogen [Mass/Vol] 39 mg/dL High 4-19 [facility] Comment on above: Performed By: #### L 100.0100, L500.2500, L503.7505 ####[facility] [address] [place], [address] Basophil percentageOrdered B y: Gustabo Beto on 11-22-2024 Basophils/100 WBC (Bld) 0.4 % 0-1 [facility] CBC W/Diff, Automatedon 11-01 Absolute Lymph 1.37 X10 3/uL Normal 0.83-4.51 [facility] Comment on above: Performed By: #### L 100.0100, L500.2500, L503.7505 ####[facility] [address] [place], [address] Absolute Neut 6.2 X10 3/uL Normal 2.0-7.7 [facility] Comment on above: Performed By: #### L 100.0100, L500.2500, L503.7505 ####[facility] [address] [place], [address] Basophils/100 WBC (Bld) 0.4 % Normal 0-1 [facility] Comment on above: Performed By: #### L 100.0100, L500.2500, L503.7505 ####[facility] [address] [place], [address] Eosinophils/100 WBC (Bld) 1.5 % Normal 0-5 [facility] Comment on above: Performed By: #### L 100.0100, L500.2500, L503.7505 ####[facility] [address] [place], [address] Erythrocyte distribution width (RBC) [Ratio] 13.8 % Normal 11.6-14.6 [facility] Comment on above: Performed By: #### L 100.0100, L500.2500, L503.7505 ####[facility] [address] [place], [address] Hematocrit (Bld) [Volume fraction] 36.5 % Low 40-54 [facility] Comment on above: Performed By: #### L 100.0100, L500.2500, L503.7505 ####[facility] [address] [place], [address] Hemoglobin (Bld) [Mass/Vol] 11.8 g/dL Low 13.0-16.5 [facility] Comment on above: Performed By: #### L 100.0100, L500.2500, L503.7505 ####[facility] [address] [place], [address] IG% 0.500 Normal 0.0-0.9 [facility] Comment on above: Result Comment: IG% - Immature Granulocytes (promyelocytes, myelocytes andmetamyelocytes) > 1% indicates that a LEFT SHIFT is Present. Performed By: #### L 100.0100, L500.2500, L503.7505 ####[facility] [address] [place], [address] Lymphocytes/100 WBC (Bld) 16.1 % Low 19-41 [facility] Comment on above: Performed By: #### L 100.0100, L500.2500, L503.7505 ####[facility] [address] [place], [address] MCH (RBC) [Entitic mass] 29.6 pg Normal 27.0-32.0 [facility] Comment on above: Performed By: #### L 100.0100, L500.2500, L503.7505 ####[facility] [address] [place], [address] MCHC (RBC) [Mass/Vol] 32.3 g/dL Normal 32-36 [facility] Comment on above: Performed By: #### L 100.0100, L500.2500, L503.7505 ####[facility] [address] [place], [address] MCV (RBC) [Entitic vol] 91.7 fL Normal 80-94 [facility] Comment on above: Performed By: #### L 100.0100, L500.2500, L503.7505 ####[facility] [address] [place], [address] Monocytes/100 WBC (Bld) 9.0 % Normal 0-10 [facility] Comment on above: Performed By: #### L 100.0100, L500.2500, L503.7505 ####[facility] [address] [place], [address] Neutrophils/100 WBC (Bld) 72.5 % High 47-70 [facility] Comment on above: Performed By: #### L 100.0100, L500.2500, L503.7505 ####[facility] [address] [place], [address] Nucleated RBC (Bld) [#/Vol] 0 10*3/uL Normal 0-5 [facility] Comment on above: Performed By: #### L 100.0100, L500.2500, L503.7505 ####[facility] [address] [place], [address] Platelet mean volume (Bld) [Entitic vol] 13.0 fL High 6.2-12.0 [facility] Comment on above: Performed By: #### L 100.0100, L500.2500, L503.7505 ####[facility] [address] [place], [address] Platelets (Bld) [#/Vol] 148 10*3/uL Low 150-450 [facility] Comment on above: Performed By: #### L 100.0100, L500.2500, L503.7505 ####[facility] [address] [place], [address] RBC (Bld) [#/Vol] 3.98 10*6/uL Low 4.6-6.2 [facility] Comment on above: Performed By: #### L 100.0100, L500.2500, L503.7505 ####[facility] [address] [place], [address] RDW SD 47.0 fl High 35.1-43.9 [facility] Comment on above: Performed By: #### L 100.0100, L500.2500, L503.7505 ####[facility] [address] [place], [address] WBC (Bld) [#/Vol] 8.5 10*3/uL Normal 4.4-11.0 [facility] Comment on above: Performed By: #### L 100.0100, L500.2500, L503.7505 ####[facility] [address] [place], [address] Carbon dioxide, total [Moles /volume] in Central venous bloodOrdered By: Gustabo Pérez on 11-22-2024 CO2 [Moles/Vol] 21.6 mmol/L 21.0-32.0 [facility] Cardiology Visit Reporton Cardiology Visit Report Normal [facility] Chest PA and Lateralon 11-22 Chest PA and Lateral Normal [facility] Chloride assayOrdered By: Lydia Pérez on 11-22-2024 Chloride [Moles/Vol] 102 mmol/L 98-108 [facility] Eosinophil percentageOrdered By: Gustabo Pérez on 11-22-2024 Eosinophils/100 WBC (Bld) 1.5 % 0-5 [facility] Erythrocyte distribution wid th ratioOrdered By: Gustabo Pérez on 11-22-2024 Erythrocyte distribution width (RBC) [Ratio] 13.8 % 11.6-14.6 [facility] Erythrocyte distribution wid th standard deviationOrdered By: Gustabo Pérez on 11-22-2024 Erythrocyte distribution width (RBC) [Ratio] 47.0 fl High 35.1-43.9 [facility] Glomerular filtration rate ( GFR) estimation/1.73 sq m using serum, plasma, or whole bOrdered By: Gustabo Pérez on 11-22-2024 GFR/1.73 sq M.predicted among non-blacks MDRD (S/P/Bld) [Vol rate/Area] 25 mL/min/{1.73_m2} Low >60 [facility] Hematocrit Auto (Bld) [Volum e fraction]Ordered By: Gustabo Pérez on 11-22-2024 Hematocrit (Bld) [Volume fraction] 36.5 % Low 40-54 [facility] Hemoglobin measurementOrdere d By: Gustabo Pérez on 11-22-2024 Hemoglobin (Bld) [Mass/Vol] 11.8 g/dL Low 13.0-16.5 [facility] Immature granulocytes/100 WB C Auto (Bld)Ordered By: Gustabo Pérez on 11-22-2024 Immature granulocytes/100 WBC (Bld) 0.500 % 0.0-0.9 [facility] L503.7505on 11-22-2024 Natriuretic peptide B (Bld) [Mass/Vol] 188 pg/mL Normal <=1800 [facility] Comment on above: Result Comment: Hear t Failure Unlikely: < 300 pg/mLHeart Failure Likely< 50 Years: > 450 pg/mL50-75 Years: > 900 pg/mL>75 Years: > 1800 pg/mL Performed By: #### L 100.0100, L500.2500, L503.7505 ####[facility] [address] [place], [address] MCV (mean corpuscular volume ) determinationOrdered By: Gustabo Pérez on 11-22-2024 MCV (RBC) [Entitic vol] 91.7 fL 80-94 [facility] Mean corpuscular hemoglobin (MCH) determinationOrdered By: Gustabo Pérez on 11-22-2024 MCH (RBC) [Entitic mass] 29.6 pg 27.0-32.0 [facility] Monocyte percentageOrdered B y: Gustabo Pérez on 11-22-2024 Monocytes/100 WBC (Bld) 9.0 % 0-10 [facility] Natriuretic peptide.B prohor efrem N-Terminal [Mass/volume] in Serum or PlasmaOrdered By: Gustabo Pérez on 11-22-2024 Natriuretic peptide.B prohormone N-Terminal [Mass/Vol] 188 pg/mL <1800 [facility] Neutrophil percentageOrdered By: Gustabo Pérez on 11-22-2024 Neutrophils/100 WBC (Bld) 72.5 % High 47-70 [facility] Platelet countOrdered By: Lydia Pérez on 11-22-2024 Platelets (Bld) [#/Vol] 148 10*3/uL Low 150-450 [facility] Potassium measurement (mass/ volume)Ordered By: Gustabo Pérez on 11-22-2024 Potassium (Unsp spec) [Mass/Vol] 4.8 mmol/L 3.3-5.1 [facility] RBC Auto (Bld) [#/Vol]Ordere d By: Gustabo Pérez on 11-22-2024 RBC (Bld) [#/Vol] 3.98 10*6/uL Low 4.6-6.2 [facility] Serum creatinine measurement (mass/volume)Ordered By: Gustabo Pérez on 11-22-2024 Creatinine [Mass/Vol] 2.51 mg/dL High 0.70-1.20 [facility] Serum glucose measurement (m ass/volume)Ordered By: Gustabo Pérez on 11-22-2024 Glucose [Mass/Vol] 262 mg/dL High 70-99 [facility] Serum or plasma calcium francine urement (mass/volume)Ordered By: Gustabo Pérez on 11-22-2024 Calcium [Mass/Vol] 9.1 mg/dL 7.6-11.0 [facility] Serum or plasma urea nitroge n measurement (mass/volume)Ordered By: Gustabo Pérez on 11-22-2024 Urea nitrogen [Mass/Vol] 39 mg/dL High 4-19 [facility] Sodium levelOrdered By: Gustabo Pérez on 11-22-2024 Sodium [Moles/Vol] 139 mmol/L 133-145 [facility] White blood cell (WBC) count Ordered By: Gustabo Pérez on 11-22-2024 WBC (Bld) [#/Vol] 8.5 10*3/uL 4.4-11.0 [facility] Shoulder min 2 Viewson 11-20 Shoulder min 2 Views Normal [facility] Cardiovascular stress test r eportOrdered By: Jose Hay on 11-13-2024 Study report [facility] [address] [place] [address] MR#: [id number] Acct: [id number] Name: ERIBERTO RICO Rep #: [id number] : 1945 79 From: Jose Hay MD Primary Care: Dr. 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 This note was generated with [employer] dictation software. It may contain incorrectwords, spelling, and punctuation that were not noted in checking the note beforesigning. 11/13/24 153 Date _ Jose Hay MD CC: YRN Pérez; Dr. Marycarmen Rodriguez, DO ~ Date Dictated: 11/13/241536 Date Transcribed: 11/13/241536 [employer]phalt Blender: HARSH Signed [facility] Work Phone: Stress Reporton 11-13-2024 Stress Report Normal [facility] Echo Complete W/ Contraston 11-10-2024 Echo Complete W/ Contrast Normal [facility] Echocardiogram study reportO rdered By: Lance Rodriguez on 11-10-2024 Study report [facility] [place] [address] [address] Echo Complete W/ Contrast 11/10/24 0920 MR#: [id number] Acct: [id number] Name: ERIBERTO RICO Rep #:[id number] : 1945 79 From: Lance Hooker Attending Dr: YRN Herr Sta tus: LENNOX CLI Ordering Dr: Maren Olivas Driss e: 11/10/24 Location: [facility] Sex: M C Admitted: Reason For [...] MARYCARMEN RODRIGUEZ Performed By: Maida Gómez RDCS 11/10/24 1213 Date _ Lance Rodriguez MD CC: YRN Pérez; Dr. Marycarmen Rodriguez DO; Maren Olivas NP ~ Date Dictated: 11/10/24919 Date Transcribed: 11/10/24 1213 Asphalt Blender: Signed [facility] Absolute lymphocyte countOrd ered By: Marycarmen Rodriguez on 11-09-2024 Lymphocytes Auto (Unsp spec) [#/Vol] 1.23 10*3/uL 0.83-4.51 [facility] Absolute neutrophil countOrd ered By: Marycarmen Rodriguez on 11-09-2024 Neutrophils (Bld) [#/Vol] 4.1 10*3/uL 2.0-7.7 [facility] Anion gap in Serum or Plasma Ordered By: Marycarmen Rodriguez on 11-09-2024 Anion gap [Moles/Vol] 14 mmol/L 09-14 [facility] Automated lymphocyte count a s percentage of total leukocytesOrdered By: Marycarmen Rodriguez on 11-09-2024 Lymphocytes/100 WBC Auto (Unsp spec) 19.9 % [facility] BUN/creatinine ratioOrdered By: Marycarmen Rodriguez on 11-09-2024 Urea nitrogen/Creatinine [Mass ratio] 19.7 mg/mg - [facility] Basic Metabolic Profile (BMP )on 11-09-2024 BUN/CRE 19.7 RATIO Normal 02-19 [facility] Comment on above: Performed By: #### L 503.7505, L500.2500, L100.0100 ####[facility] [address] [place], [address] Calcium [Mass/Vol] 9.3 mg/dL Normal 7.6-11.0 [facility] Comment on above: Performed By: #### L 503.7505, L500.2500, L100.0100 ####[facility] [address] [place], [address] Chloride [Moles/Vol] 102 mmol/L Normal 98-108 [facility] Comment on above: Performed By: #### L 503.7505, L500.2500, L100.0100 ####[facility] [address] [place], [address] CO2 [Moles/Vol] 22.5 mmol/L Normal 21.0-32.0 [facility] Comment on above: Performed By: #### L 503.7505, L500.2500, L100.0100 ####[facility] [address] [place], [address] Creatinine [Mass/Vol] 2.49 mg/dL High 0.70-1.20 [facility] Comment on above: Performed By: #### L 503.7505, L500.2500, L100.0100 ####[facility] [address] [place], [address] GAP 14 Normal 5-15 [facility] Comment on above: Performed By: #### L 503.7505, L500.2500, L100.0100 ####[facility] [address] [place], [address] GFR/1.73 sq M.predicted among non-blacks MDRD (S/P/Bld) [Vol rate/Area] 26 mL/min/{1.73_m2} Low >60 [facility] Comment on above: Result Comment: mL/m in/1.73m2 CKD-EPI Creatinine Equation (2020) Performed By: #### L 503.7505, L500.2500, L100.0100 ####[facility] [address] [place], [address] Glucose [Mass/Vol] 169 mg/dL High 70-99 [facility] Comment on above: Performed By: #### L 503.7505, L500.2500, L100.0100 ####[facility] [address] [place], [address] Potassium [Moles/Vol] 4.6 mmol/L Normal 3.3-5.1 [facility] Comment on above: Performed By: #### L 503.7505, L500.2500, L100.0100 ####[facility] [address] [place], [address] Sodium [Moles/Vol] 139 mmol/L Normal 133-145 [facility] Comment on above: Performed By: #### L 503.7505, L500.2500, L100.0100 ####[facility] [address] [place], [address] Urea nitrogen [Mass/Vol] 49 mg/dL High 4-19 [facility] Comment on above: Performed By: #### L 503.7505, L500.2500, L100.0100 ####[facility] [address] [place], [address] Basophil percentageOrdered B y: Marycarmen Rodriguez on 11-09-2024 Basophils/100 WBC (Bld) 0.3 % 0-1 [facility] CBC W/Diff, Automatedon 10-31 0-2024 Absolute Lymph 1.23 X10 3/uL Normal 0.83-4.51 [facility] Comment on above: Performed By: #### L 503.7505, L500.2500, L100.0100 ####[facility] [address] [place], [address] Absolute Neut 4.1 X10 3/uL Normal 2.0-7.7 [facility] Comment on above: Performed By: #### L 503.7505, L500.2500, L100.0100 ####[facility] [address] [place], [address] Basophils/100 WBC (Bld) 0.3 % Normal 0-1 [facility] Comment on above: Performed By: #### L 503.7505, L500.2500, L100.0100 ####[facility] [address] [place], [address] Eosinophils/100 WBC (Bld) 2.4 % Normal 0-5 [facility] Comment on above: Performed By: #### L 503.7505, L500.2500, L100.0100 ####[facility] [address] [place], [address] Erythrocyte distribution width (RBC) [Ratio] 14.1 % Normal 11.6-14.6 [facility] Comment on above: Performed By: #### L 503.7505, L500.2500, L100.0100 ####[facility] [address] [place], [address] Hematocrit (Bld) [Volume fraction] 38.2 % Low 40-54 [facility] Comment on above: Performed By: #### L 503.7505, L500.2500, L100.0100 ####[facility] [address] [place], [address] Hemoglobin (Bld) [Mass/Vol] 12.2 g/dL Low 13.0-16.5 [facility] Comment on above: Performed By: #### L 503.7505, L500.2500, L100.0100 ####[facility] [address] [place], [address] IG% 0.500 Normal 0.0-0.9 [facility] Comment on above: Result Comment: IG% - Immature Granulocytes (promyelocytes, myelocytes andmetamyelocytes) > 1% indicates that a LEFT SHIFT is Present. Performed By: #### L 503.7505, L500.2500, L100.0100 ####[facility] [address] [place], [address] Lymphocytes/100 WBC (Bld) 19.9 % Normal 19-41 [facility] Comment on above: Performed By: #### L 503.7505, L500.2500, L100.0100 ####[facility] [address] [place], [address] MCH (RBC) [Entitic mass] 29.6 pg Normal 27.0-32.0 [facility] Comment on above: Performed By: #### L 503.7505, L500.2500, L100.0100 ####[facility] [address] [place], [address] MCHC (RBC) [Mass/Vol] 31.9 g/dL Low 32-36 [facility] Comment on above: Performed By: #### L 503.7505, L500.2500, L100.0100 ####[facility] [address] [place], [address] MCV (RBC) [Entitic vol] 92.7 fL Normal 80-94 [facility] Comment on above: Performed By: #### L 503.7505, L500.2500, L100.0100 ####[facility] [address] [place], [address] Monocytes/100 WBC (Bld) 10.4 % High 0-10 [facility] Comment on above: Performed By: #### L 503.7505, L500.2500, L100.0100 ####[facility] [address] [place], [address] Neutrophils/100 WBC (Bld) 66.5 % Normal 47-70 [facility] Comment on above: Performed By: #### L 503.7505, L500.2500, L100.0100 ####[facility] [address] [place], [address] Nucleated RBC (Bld) [#/Vol] 0 10*3/uL Normal 0-5 [facility] Comment on above: Performed By: #### L 503.7505, L500.2500, L100.0100 ####[facility] [id number] [place], [address] Platelet mean volume (Bld) [Entitic vol] 12.7 fL High 6.2-12.0 [facility] Comment on above: Performed By: #### L 503.7505, L500.2500, L100.0100 ####[facility] [id number] [place], [address] Platelets (Bld) [#/Vol] 120 10*3/uL Low 150-450 [facility] Comment on above: Performed By: #### L 503.7505, L500.2500, L100.0100 ####[facility] [id number] [place], [address] RBC (Bld) [#/Vol] 4.12 10*6/uL Low 4.6-6.2 [facility] [facility] Comment on above: Performed By: #### L 503.7505, L500.2500, L100.0100 ####[facility] [address] [place], [address] RDW SD 47.8 fl High 35.1-43.9 [facility] Comment on above: Performed By: #### L 503.7505, L500.2500, L100.0100 ####[facility] [address] [place], [address] WBC (Bld) [#/Vol] 6.2 10*3/uL Normal 4.4-11.0 [facility] Comment on above: Performed By: #### L 503.7505, L500.2500, L100.0100 ####[facility] [address] [place], [address] Carbon dioxide, total [Moles /volume] in Central venous bloodOrdered By: Marycarmen Rodriguez on 11-09-2024 CO2 [Moles/Vol] 22.5 mmol/L 21.0-32.0 [facility] Chloride assayOrdered By: Danyelle Rodriguez on 11-09-2024 Chloride [Moles/Vol] 102 mmol/L 98-108 [facility] Eosinophil percentageOrdered By: Marycarmen Rodriguez on 11-09-2024 Eosinophils/100 WBC (Bld) 2.4 % 0-5 [facility] Erythrocyte distribution wid th ratioOrdered By: Marycarmen Rodriguez on 11-09-2024 Erythrocyte distribution width (RBC) [Ratio] 14.1 % 11.6-14.6 [facility] Erythrocyte distribution wid th standard deviationOrdered By: Marycarmen Rodriguez on 11-09-2024 Erythrocyte distribution width (RBC) [Ratio] 47.8 fl High 35.1-43.9 [facility] Glomerular filtration rate ( GFR) estimation/1.73 sq m using serum, plasma, or whole bOrdered By: Marycarmen Rodriguez on 11-09-2024 GFR/1.73 sq M.predicted among non-blacks MDRD (S/P/Bld) [Vol rate/Area] 26 mL/min/{1.73_m2} Low >60 [facility] Comment on above: mL/min/1.73m2 CKD-EP I Creatinine Equation (2020) Hematocrit Auto (Bld) [Volum e fraction]Ordered By: Marycarmen Rodriguez on 11-09-2024 Hematocrit (Bld) [Volume fraction] 38.2 % Low 40-54 [facility] Hemoglobin measurementOrdere d By: Marycarmen Rodriguez on 11-09-2024 Hemoglobin (Bld) [Mass/Vol] 12.2 g/dL Low 13.0-16.5 [facility] Immature granulocytes/100 WB C Auto (Bld)Ordered By: Marycarmen Rodriguez on 11-09-2024 Immature granulocytes/100 WBC (Bld) 0.500 % 0.0-0.9 [facility] Comment on above: IG% - Immature Granu locytes (promyelocytes, myelocytes and metamyelocytes) > 1% indicates that a LEFT SHIFT is Present. L503.7505on 11-09-2024 Natriuretic peptide B (Bld) [Mass/Vol] 91 pg/mL Normal <=1800 [facility] Comment on above: Result Comment: Hear t Failure Unlikely: < 300 pg/mLHeart Failure Likely< 50 Years: > 450 pg/mL50-75 Years: > 900 pg/mL>75 Years: > 1800 pg/mL Performed By: #### L 503.7505, L500.2500, L100.0100 ####[facility] [address] [place], [address] MCV (mean corpuscular volume ) determinationOrdered By: Marycarmen Rodriguez on 11-09-2024 MCV (RBC) [Entitic vol] 92.7 fL 80-94 [facility] Mean corpuscular hemoglobin (MCH) determinationOrdered By: Marycarmen Rodriguez on 11-09-2024 MCH (RBC) [Entitic mass] 29.6 pg 27.0-32.0 [facility] Mean corpuscular hemoglobin concentration (MCHC) determinationOrdered By: Marycarmen Rodriguez on 11-09-2024 MCHC (RBC) [Mass/Vol] 31.9 g/dL Low 32-36 [facility] Mean platelet volume determi nationOrdered By: Marycarmen Rodriguez on 11-09-2024 Platelet mean volume (Bld) [Entitic vol] 12.7 fL High 6.2-12.0 [facility] Monocyte percentageOrdered B y: Marycarmen Rodriguez on 11-09-2024 Monocytes/100 WBC (Bld) 10.4 % High 0-10 [facility] Natriuretic peptide.B prohor efrem N-Terminal [Mass/volume] in Serum or PlasmaOrdered By: Marycarmen Rodriguez on 11-09-2024 Natriuretic peptide.B prohormone N-Terminal [Mass/Vol] 91 pg/mL <1800 [facility] Comment on above: Heart Failure Unlike ly: < 300 pg/mLHeart Failure Likely< 50 Years: > 450 pg/mL50-75 Years: > 900 pg/mL>75 Years: > 1800 pg/mL Neutrophil percentageOrdered By: Marycarmen Rodriguez on 11-09-2024 Neutrophils/100 WBC (Bld) 66.5 % 47-70 [facility] Nucleated red blood cell per centageOrdered By: Marycarmen Rodriguez on 11-09-2024 Nucleated RBC/100 WBC (Bld) [Ratio] 0 % 0-5 [facility] Platelet countOrdered By: Danyelle Rodriguez on 11-09-2024 Platelets (Bld) [#/Vol] 120 10*3/uL Low 150-450 [facility] Potassium measurement (mass/ volume)Ordered By: Marycarmen Rodriguez on 11-09-2024 Potassium (Unsp spec) [Mass/Vol] 4.6 mmol/L 3.3-5.1 [facility] RBC Auto (Bld) [#/Vol]Ordere d By: Marycarmen Rodriguez on 11-09-2024 RBC (Bld) [#/Vol] 4.12 10*6/uL Low 4.6-6.2 [facility] Serum creatinine measurement (mass/volume)Ordered By: Marycarmen Rodriguez on 11-09-2024 Creatinine [Mass/Vol] 2.49 mg/dL High 0.70-1.20 [facility] Serum glucose measurement (m ass/volume)Ordered By: Marycarmen Rodriguez on 11-09-2024 Glucose [Mass/Vol] 169 mg/dL High 70-99 [facility] Serum or plasma calcium francine urement (mass/volume)Ordered By: Marycarmen Rodriguez on 11-09-2024 Calcium [Mass/Vol] 9.3 mg/dL 7.6-11.0 [facility] Serum or plasma urea nitroge n measurement (mass/volume)Ordered By: Marycarmen Rodriguez on 11-09-2024 Urea nitrogen [Mass/Vol] 49 mg/dL High 4-19 [facility] Sodium levelOrdered By: Marycarmen Rodriguez on 11-09-2024 Sodium [Moles/Vol] 139 mmol/L 133-145 [facility] White blood cell (WBC) count Ordered By: Marycarmen Rodriguez on 11-09-2024 WBC (Bld) [#/Vol] 6.2 10*3/uL 4.4-11.0 [facility] Pulmonary Visit Reporton Pulmonary Visit Report Normal [facility] Cardiology Visit Reporton Cardiology Visit Report Normal [facility] [id number] 10-23-2024 [facility] Misc. COMMENT Normal . [facility] Comment on above: Order Comment: [id number] 0MED TOX Result Comment: Test Ordered: [id number] O33-Ahyych+FM4Drslarnimali Screen, Urine Negative ng/mL UI Reference Range: Kdawgw=551Kpjnrdivyaw test includes Amphetamine and Methamphetamine.Barbiturates Negative ng/mL UI Reference Range: Pgcytj=979Cipufbjoakpruvj Negative ng/mL UI Reference Range: Guefnp=777Kdukkln (Metab.), Urine Negative ng/mL UI Reference Range: Idxuub=649Ddoxzlm Note: ng/mL UI See Final Results Reference Range: Tkgiao=485Exqyen test includes Codeine, Morphine, Hydromorphone, Hydrocodone.Opiates Positive [A ] UI Reference Range: Jdgazj=971Divxcn test includes Codeine, Morphine, Hydromorphone, Hydrocodone.Codeine Negative UI Reference Range: Sgqxag=948Wcrbxzpz Negative UI Reference Range: Eqruqz=573Jlludnrszeydt Negative UI Reference Range: Kfgrge=850Gvoqdfkhies Positive [A ] UI Reference Range: .Hydrocodone Conf, MS, UR 349 ng/mL UI Reference Range: Hvnoex=6937-Orcwsbqbuuhgia, Urine Negative ng/mL UI Reference Range: Cutoff=10Oxycodone/Oxymorphone, Urine Negative ng/mL UI Reference Range: Wotjam=948Dfjf includes Oxycodone and OxymorphonePCP, Urine Negative ng/mL UI Reference Range: Cutoff=25Methadone Screen, Urine Negative ng/mL UI Reference Range: Pofcje=240Gaoolzyhhnow, Urine Negative ng/mL UI Reference Range: Jalirk=669Yzyjodvd, Urine Negative ng/mL UI Reference Range: Cutoff=2.0Test includes Fentanyl and NorfentanylThis test was developed and its performance characteristicsdetermined by [facility]. It has not been cleared orapproved by the Food and Drug Administration.Tramadol Negative ng/mL UI Reference Range: Ahmuqx=443Pyqfstgxhkmah, Urine Negative ng/mL UI Reference Range: Cutoff=10Creatinine, Urine 36.9 mg/dL UI Reference Range: 20.0-300.0pH, Urine 6.1 UI Reference Range: 4.5-8.9Performed at: - [facility] [id number] [place], [place] [id number] Director: Erik Wallis PhD, Phone: [phone] at: [facility] [address] [id number] Director: Bharath Hawthorne PhD, Phone: [phone] Performed By: #### L 3410.9992, L505.5000 ####[facility] [address] [place], [address] Absolute lymphocyte countOrd ered By: Gustabo Pérez on 10-18-2024 Lymphocytes Auto (Unsp spec) [#/Vol] 1.15 10*3/uL 0.83-4.51 [facility] Absolute neutrophil countOrd ered By: Gustabo Pérez on 10-18-2024 Neutrophils (Bld) [#/Vol] 4.6 10*3/uL 2.0-7.7 [facility] Amphetamine detection with 1 000 ng/mL as cutoffOrdered By: Brooks Carpenter on 10-18-2024 Amphetamines Screen method >1000 ng/mL Ql (U) Negative < 200 ng/mL [facility] Anion gap in Serum or Plasma Ordered By: Gustabo Pérez on 10-18-2024 Anion gap [Moles/Vol] 12 mmol/L 5- [facility] Automated lymphocyte count a s percentage of total leukocytesOrdered By: Gustabo Pérez on 10-18-2024 Lymphocytes/100 WBC Auto (Unsp spec) 17.4 % Low 19-41 [facility] BUN/creatinine ratioOrdered By: Gustabo Pérez on 10-18-2024 Urea nitrogen/Creatinine [Mass ratio] 16.4 mg/mg 10- [facility] Basic Metabolic Profile (BMP )on 10-18-2024 BUN/CRE 16.4 RATIO Normal - [facility] Comment on above: Performed By: #### L 500.2500, L100.0100, L503.7505 ####[facility] [address] [place], [address] Calcium [Mass/Vol] 9.0 mg/dL Normal 7.6-11.0 [facility] Comment on above: Performed By: #### L 500.2500, L100.0100, L503.7505 ####[facility] [address] [place], [address] Chloride [Moles/Vol] 103 mmol/L Normal 98-108 [facility] Comment on above: Performed By: #### L 500.2500, L100.0100, L503.7505 ####[facility] [address] [place], [address] CO2 [Moles/Vol] 23.9 mmol/L Normal 21.0-32.0 [facility] Comment on above: Performed By: #### L 500.2500, L100.0100, L503.7505 ####[facility] [address] [place], [address] Creatinine [Mass/Vol] 2.00 mg/dL High 0.70-1.20 [facility] Comment on above: Performed By: #### L 500.2500, L100.0100, L503.7505 ####[facility] [address] [place], [address] GAP 12 Normal 5-15 [facility] Comment on above: Performed By: #### L 500.2500, L100.0100, L503.7505 ####[facility] [address] [place], [address] GFR/1.73 sq M.predicted among non-blacks MDRD (S/P/Bld) [Vol rate/Area] 33 mL/min/{1.73_m2} Low >60 [facility] Comment on above: Result Comment: mL/m in/1.73m2 CKD-EPI Creatinine Equation (2020) Performed By: #### L 500.2500, L100.0100, L503.7505 ####[facility] [address] [place], [address] Glucose [Mass/Vol] 125 mg/dL High 70-99 [facility] Comment on above: Performed By: #### L 500.2500, L100.0100, L503.7505 ####[facility] [address] [place], [address] Potassium [Moles/Vol] 4.8 mmol/L Normal 3.3-5.1 [facility] Comment on above: Performed By: #### L 500.2500, L100.0100, L503.7505 ####[facility] [address] [place], [address] Sodium [Moles/Vol] 139 mmol/L Normal 133-145 [facility] Comment on above: Performed By: #### L 500.2500, L100.0100, L503.7505 ####[facility] [address] [place], [address] Urea nitrogen [Mass/Vol] 33 mg/dL High 4-19 [facility] Comment on above: Performed By: #### L 500.2500, L100.0100, L503.7505 ####[facility] [address] [place], [address] Basophil percentageOrdered B y: Gustabo Pérez on 10-18-2024 Basophils/100 WBC (Bld) 0.2 % 0-1 [facility] CBC W/Diff, Automatedon 10-01 Absolute Lymph 1.15 X10 3/uL Normal 0.83-4.51 [facility] Comment on above: Performed By: #### L 500.2500, L100.0100, L503.7505 ####[facility] [address] [place], [address] Absolute Neut 4.6 X10 3/uL Normal 2.0-7.7 [facility] Comment on above: Performed By: #### L 500.2500, L100.0100, L503.7505 ####[facility] [address] [place], [address] Basophils/100 WBC (Bld) 0.2 % Normal 0-1 [facility] Comment on above: Performed By: #### L 500.2500, L100.0100, L503.7505 ####[facility] [address] [place], [address] Eosinophils/100 WBC (Bld) 2.0 % Normal 0-5 [facility] Comment on above: Performed By: #### L 500.2500, L100.0100, L503.7505 ####[facility] [address] [place], [address] Erythrocyte distribution width (RBC) [Ratio] 14.3 % Normal 11.6-14.6 [facility] Comment on above: Performed By: #### L 500.2500, L100.0100, L503.7505 ####[facility] [address] [place], [address] Hematocrit (Bld) [Volume fraction] 36.4 % Low 40-54 [facility] Comment on above: Performed By: #### L 500.2500, L100.0100, L503.7505 ####[facility] [address] [place], [address] Hemoglobin (Bld) [Mass/Vol] 11.5 g/dL Low 13.0-16.5 [facility] Comment on above: Performed By: #### L 500.2500, L100.0100, L503.7505 ####[facility] [address] [place], [address] IG% 0.600 Normal 0.0-0.9 [facility] Comment on above: Result Comment: IG% - Immature Granulocytes (promyelocytes, myelocytes andmetamyelocytes) > 1% indicates that a LEFT SHIFT is Present. Performed By: #### L 500.2500, L100.0100, L503.7505 ####[facility] [address] [place], [address] Lymphocytes/100 WBC (Bld) 17.4 % Low 19-41 [facility] Comment on above: Performed By: #### L 500.2500, L100.0100, L503.7505 ####[facility] [address] [place], [address] MCH (RBC) [Entitic mass] 29.4 pg Normal 27.0-32.0 [facility] Comment on above: Performed By: #### L 500.2500, L100.0100, L503.7505 ####[facility] [address] [place], [address] MCHC (RBC) [Mass/Vol] 31.6 g/dL Low 32-36 [facility] Comment on above: Performed By: #### L 500.2500, L100.0100, L503.7505 ####[facility] [address] [place], [address] MCV (RBC) [Entitic vol] 93.1 fL Normal 80-94 [facility] Comment on above: Performed By: #### L 500.2500, L100.0100, L503.7505 ####[facility] [address] [place], [address] Monocytes/100 WBC (Bld) 10.4 % High 0-10 [facility] Comment on above: Performed By: #### L 500.2500, L100.0100, L503.7505 ####[facility] [address] [place], [address] Neutrophils/100 WBC (Bld) 69.4 % Normal 47-70 [facility] Comment on above: Performed By: #### L 500.2500, L100.0100, L503.7505 ####[facility] [address] [place], [address] Nucleated RBC (Bld) [#/Vol] 0 10*3/uL Normal 0-5 [facility] Comment on above: Performed By: #### L 500.2500, L100.0100, L503.7505 ####[facility] [address] [place], [address] Platelet mean volume (Bld) [Entitic vol] 12.9 fL High 6.2-12.0 [facility] Comment on above: Performed By: #### L 500.2500, L100.0100, L503.7505 ####[facility] [address] [place], [address] Platelets (Bld) [#/Vol] 152 10*3/uL Normal 150-450 [facility] Comment on above: Performed By: #### L 500.2500, L100.0100, L503.7505 ####[facility] [address] [place], [address] RBC (Bld) [#/Vol] 3.91 10*6/uL Low 4.6-6.2 [facility] Comment on above: Performed By: #### L 500.2500, L100.0100, L503.7505 ####[facility] [address] [place], [address] RDW SD 48.5 fl High 35.1-43.9 [facility] Comment on above: Performed By: #### L 500.2500, L100.0100, L503.7505 ####[facility] [address] [place], [address] WBC (Bld) [#/Vol] 6.6 10*3/uL Normal 4.4-11.0 [facility] Comment on above: Performed By: #### L 500.2500, L100.0100, L503.7505 ####[facility] [address] [place], [address] Carbon dioxide, total [Moles /volume] in Central venous bloodOrdered By: Gustabo Pérez on 10-18-2024 CO2 [Moles/Vol] 23.9 mmol/L 21.0-32.0 [facility] Chloride assayOrdered By: Lydia Pérez on 10-18-2024 Chloride [Moles/Vol] 103 mmol/L 98-108 [facility] Eosinophil percentageOrdered By: Gustabo Pérez on 10-18-2024 Eosinophils/100 WBC (Bld) 2.0 % 0-5 [facility] Erythrocyte distribution wid th ratioOrdered By: Gustabo Pérez on 10-18-2024 Erythrocyte distribution width (RBC) [Ratio] 14.3 % 11.6-14.6 [facility] Erythrocyte distribution wid th standard deviationOrdered By: Gustabo Pérez on 10-18-2024 Erythrocyte distribution width (RBC) [Ratio] 48.5 fl High 35.1-43.9 [facility] Glomerular filtration rate ( GFR) estimation/1.73 sq m using serum, plasma, or whole bOrdered By: Gustbao Pérez on 10-18-2024 GFR/1.73 sq M.predicted among non-blacks MDRD (S/P/Bld) [Vol rate/Area] 33 mL/min/{1.73_m2} Low >60 [facility] Comment on above: mL/min/1.73m2 CKD-EP I Creatinine Equation (2020) Hematocrit Auto (Bld) [Volum e fraction]Ordered By: Gustabo Pérez on 10-18-2024 Hematocrit (Bld) [Volume fraction] 36.4 % Low 40-54 [facility] Hemoglobin measurementOrdere d By: Gustabo Pérez on 10-18-2024 Hemoglobin (Bld) [Mass/Vol] 11.5 g/dL Low 13.0-16.5 [facility] Immature granulocytes/100 WB C Auto (Bld)Ordered By: Gustbao Pérez on 10-18-2024 Immature granulocytes/100 WBC (Bld) 0.600 % 0.0-0.9 [facility] Comment on above: IG% - Immature Granu locytes (promyelocytes, myelocytes and metamyelocytes) > 1% indicates that a LEFT SHIFT is Present. L503.7505on 10-18-2024 Natriuretic peptide B (Bld) [Mass/Vol] 200 pg/mL Normal <=1800 [facility] Comment on above: Result Comment: Hear t Failure Unlikely: < 300 pg/mLHeart Failure Likely< 50 Years: > 450 pg/mL50-75 Years: > 900 pg/mL>75 Years: > 1800 pg/mL Performed By: #### L 500.2500, L100.0100, L503.7505 ####[facility] [address] [place], [address] MCV (mean corpuscular volume ) determinationOrdered By: Gustabo Pérez on 10-18-2024 MCV (RBC) [Entitic vol] 93.1 fL 80-94 [facility] Mean corpuscular hemoglobin (MCH) determinationOrdered By: Gustabo Pérez on 10-18-2024 MCH (RBC) [Entitic mass] 29.4 pg 27.0-32.0 [facility] Mean corpuscular hemoglobin concentration (MCHC) determinationOrdered By: Gustabo Pérez on 10-18-2024 MCHC (RBC) [Mass/Vol] 31.6 g/dL Low 32-36 [facility] Mean platelet volume determi nationOrdered By: Gustabo Pérez on 10-18-2024 Platelet mean volume (Bld) [Entitic vol] 12.9 fL High 6.2-12.0 [facility] Monocyte percentageOrdered B y: Gustabo Pérez on 10-18-2024 Monocytes/100 WBC (Bld) 10.4 % High 0-10 [facility] Natriuretic peptide.B prohor efrem N-Terminal [Mass/volume] in Serum or PlasmaOrdered By: Gustabo Pérez on 10-18-2024 Natriuretic peptide.B prohormone N-Terminal [Mass/Vol] 200 pg/mL <1800 [facility] Comment on above: Heart Failure Unlike ly: < 300 pg/mLHeart Failure Likely< 50 Years: > 450 pg/mL50-75 Years: > 900 pg/mL>75 Years: > 1800 pg/mL Neutrophil percentageOrdered By: Gustabo Pérez on 10-18-2024 Neutrophils/100 WBC (Bld) 69.4 % 47-70 [facility] No Panel InformationOrdered By: Brooks Carpenter on 10-18-2024 Urine Buprenorphine Qualitative Negative < 200 ng/mL [facility] Urine Oxycodone Screen Negative < 100 ng/mL [facility] Negative < 200 ng/mL [facility] Nucleated red blood cell per centageOrdered By: Gustabo Pérez on 10-18-2024 Nucleated RBC/100 WBC (Bld) [Ratio] 0 % 0-5 [facility] Platelet countOrdered By: Lydia Pérez on 10-18-2024 Platelets (Bld) [#/Vol] 152 10*3/uL 150-450 [facility] Potassium measurement (mass/ volume)Ordered By: Gustabo Pérez on 10-18-2024 Potassium (Unsp spec) [Mass/Vol] 4.8 mmol/L 3.3-5.1 [facility] Quantitative urine opiates m easurementOrdered By: Brooks Carpenter on 10-18-2024 Opiates Ql (U) Positive < 300 ng/mL [facility] Comment on above: If confirmation test ing is needed, a separate order will be required to send out testing to the reference laboratory. RBC Auto (Bld) [#/Vol]Ordere d By: Gustabo Pérez on 10-18-2024 RBC (Bld) [#/Vol] 3.91 10*6/uL Low 4.6-6.2 [facility] Screening urine fentanyl ritu surementOrdered By: Brooks Carpenter on 10-18-2024 fentaNYL Screen Ql (U) Negative [facility] Serum creatinine measurement (mass/volume)Ordered By: Gustabo Pérez on 10-18-2024 Creatinine [Mass/Vol] 2.00 mg/dL High 0.70-1.20 [facility] Serum glucose measurement (m ass/volume)Ordered By: Gustabo Pérez on 10-18-2024 Glucose [Mass/Vol] 125 mg/dL High 70-99 [facility] Serum or plasma calcium francine urement (mass/volume)Ordered By: Gustabo Pérez on 10-18-2024 Calcium [Mass/Vol] 9.0 mg/dL 7.6-11.0 [facility] Serum or plasma urea nitroge n measurement (mass/volume)Ordered By: Gustabo Pérez on 10-18-2024 Urea nitrogen [Mass/Vol] 33 mg/dL High 4-19 [facility] Sodium levelOrdered By: Gustabo Pérez on 10-18-2024 Sodium [Moles/Vol] 139 mmol/L 133-145 [facility] Urine Drug Screen (VISTA)on 10-18-2024 AMPHETAMINES Negative Normal <1000 ng/mL [facility] Comment on above: Order Comment: PAIN MANAGMENT Performed By: #### L 3410.9992, L505.5000 ####[facility] [address] [place], [address] BARBITIURATES Negative Normal < 200 ng/mL [facility] Comment on above: Order Comment: PAIN MANAGMENT Performed By: #### L 3410.9992, L505.5000 ####[facility] [address] [place], [address] BENZODIAZIPINE Negative Normal < 200 ng/mL [facility] Comment on above: Order Comment: PAIN MANAGMENT Performed By: #### L 3410.9992, L505.5000 ####[facility] [address] [place], [address] BUP Ur Drug Scr Negative Normal < 200 ng/mL [facility] Comment on above: Order Comment: PAIN MANAGMENT Performed By: #### L 3410.9992, L505.5000 ####[facility] [address] [place], [address] COCAINE Negative Normal < 300 ng/mL [facility] Comment on above: Order Comment: PAIN MANAGMENT Performed By: #### L 3410.9992, L505.5000 ####[facility] [address] [place], [address] Fentanyl Negative Normal [facility] Comment on above: Order Comment: PAIN MANAGMENT Performed By: #### L 3410.9992, L505.5000 ####[facility] [address] [place], [address] METHADONE Negative Normal < 300 ng/mL [facility] Comment on above: Order Comment: PAIN MANAGMENT Performed By: #### L 3410.9992, L505.5000 ####[facility] [address] [place], [address] OPIATES Positive Normal < 300 ng/mL [facility] Comment on above: Order Comment: PAIN MANAGMENT Result Comment: If c onfirmation testing is needed, a separate order will berequired to send out testing to the reference laboratory. Performed By: #### L 3410.9992, L505.5000 ####[facility] [address] [place], [address] OXYCODONE Negative Normal < 100 ng/mL [facility] Comment on above: Order Comment: PAIN MANAGMENT Performed By: #### L 3410.9992, L505.5000 ####[facility] [address] [facility] [address] PCP Negative Normal < 25 ng/mL [facility] Comment on above: Order Comment: PAIN MANAGMENT Performed By: #### L 3410.9992, L505.5000 ####[facility] [address] [facility] [address] THC Negative Normal < 50 ng/mL [facility] Comment on above: Order Comment: PAIN MANAGMENT Performed By: #### L 3410.9992, L505.5000 ####[facility] [address] [facility] [address] Urine benzodiazepine levelOr dered By: Brooks Carpenter on 10-18-2024 Benzodiazepines Ql (U) Negative < 200 ng/mL [facility] Urine cocaine levelOrdered B y: Brooks Carpenter on 10-18-2024 Cocaine Ql (U) Negative < 300 ng/mL [facility] Urine plrvf-1-rvtcnfrcooiutc abinol (THC) measurementOrdered By: Brooks Carpenter on 10-18-2024 Cannabinoids Screen Ql (U) Negative < 50 ng/mL [facility] Urine phencyclidine (PCP) de tectionOrdered By: Brooks Carpenter on 10-18-2024 Phencyclidine Ql (U) Negative < 25 ng/mL [facility] White blood cell (WBC) count Ordered By: Gustabo Pérez on 10-18-2024 WBC (Bld) [#/Vol] 6.6 10*3/uL 4.4-11.0 [facility] Absolute lymphocyte countOrd ered By: Marycarmen Rodriguez on 09-29-2024 Lymphocytes Auto (Unsp spec) [#/Vol] 1.35 10*3/uL 0.83-4.51 [facility] Absolute neutrophil countOrd ered By: Marycarmen Rodriguez on 09-29-2024 Neutrophils (Bld) [#/Vol] 9.2 10*3/uL High 2.0-7.7 [facility] Automated lymphocyte count a s percentage of total leukocytesOrdered By: Marycarmen Rodriguez on 09-29-2024 Lymphocytes/100 WBC Auto (Unsp spec) 10.9 % Low 19-41 [facility] Basophil percentageOrdered B y: Marycarmen Rodriguez on 09-29-2024 Basophils/100 WBC (Bld) 0.6 % 0-1 [facility] CBC W/Diff, Automatedon 09-02-2024 Absolute Lymph 1.35 X10 3/uL Normal 0.83-4.51 [facility] Comment on above: Performed By: #### L 503.0106, L100.0100, L503.6550, L503.6150 ####[facility] [address] [place], [address] Absolute Neut 9.2 X10 3/uL High 2.0-7.7 [facility] Comment on above: Performed By: #### L 503.0106, L100.0100, L503.6550, L503.6150 ####[facility] [address] [place], [address] Basophils/100 WBC (Bld) 0.6 % Normal 0-1 [facility] Comment on above: Performed By: #### L 503.0106, L100.0100, L503.6550, L503.6150 ####[facility] [address] [place], [address] Eosinophils/100 WBC (Bld) 0.7 % Normal 0-5 [facility] Comment on above: Performed By: #### L 503.0106, L100.0100, L503.6550, L503.6150 ####[facility] [address] [place], [address] Erythrocyte distribution width (RBC) [Ratio] 14.2 % Normal 11.6-14.6 [facility] Comment on above: Performed By: #### L 503.0106, L100.0100, L503.6550, L503.6150 ####[facility] [address] [place], [address] Hematocrit (Bld) [Volume fraction] 37.4 % Low 40-54 [facility] Comment on above: Performed By: #### L 503.0106, L100.0100, L503.6550, L503.6150 ####[facility] [address] [place], [address] Hemoglobin (Bld) [Mass/Vol] 12.1 g/dL Low 13.0-16.5 [facility] Comment on above: Performed By: #### L 503.0106, L100.0100, L503.6550, L503.6150 ####[facility] [address] [place], [address] IG% 3.600 High 0.0-0.9 [facility] Comment on above: Result Comment: IG% - Immature Granulocytes (promyelocytes, myelocytes andmetamyelocytes) > 1% indicates that a LEFT SHIFT is Present. Performed By: #### L 503.0106, L100.0100, L503.6550, L503.6150 ####[facility] [address] [place], [address] Lymphocytes/100 WBC (Bld) 10.9 % Low 19-41 [facility] Comment on above: Performed By: #### L 503.0106, L100.0100, L503.6550, L503.6150 ####[facility] [address] [place], [address] MCH (RBC) [Entitic mass] 29.6 pg Normal 27.0-32.0 [facility] Comment on above: Performed By: #### L 503.0106, L100.0100, L503.6550, L503.6150 ####[facility] [address] [place], [address] MCHC (RBC) [Mass/Vol] 32.4 g/dL Normal 32-36 [facility] Comment on above: Performed By: #### L 503.0106, L100.0100, L503.6550, L503.6150 ####[facility] [address] [place], [address] MCV (RBC) [Entitic vol] 91.4 fL Normal 80-94 [facility] Comment on above: Performed By: #### L 503.0106, L100.0100, L503.6550, L503.6150 ####[facility] [address] [place], [address] Monocytes/100 WBC (Bld) 9.9 % Normal 0-10 [facility] Comment on above: Performed By: #### L 503.0106, L100.0100, L503.6550, L503.6150 ####[facility] [address] [place], [address] Neutrophils/100 WBC (Bld) 74.3 % High 47-70 [facility] Comment on above: Performed By: #### L 503.0106, L100.0100, L503.6550, L503.6150 ####[facility] [address] [place], [address] Nucleated RBC (Bld) [#/Vol] 0 10*3/uL Normal 0-5 [facility] Comment on above: Performed By: #### L 503.0106, L100.0100, L503.6550, L503.6150 ####[facility] [address] [place], [address] Platelet mean volume (Bld) [Entitic vol] 12.3 fL High 6.2-12.0 [facility] Comment on above: Performed By: #### L 503.0106, L100.0100, L503.6550, L503.6150 ####[facility] [address] [place], [address] Platelets (Bld) [#/Vol] 169 10*3/uL Normal 150-450 [facility] Comment on above: Performed By: #### L 503.0106, L100.0100, L503.6550, L503.6150 ####[facility] [address] [place], [address] RBC (Bld) [#/Vol] 4.09 10*6/uL Low 4.6-6.2 [facility] Comment on above: Performed By: #### L 503.0106, L100.0100, L503.6550, L503.6150 ####[facility] [address] [place], [address] RDW SD 47.4 fl High 35.1-43.9 [facility] Comment on above: Performed By: #### L 503.0106, L100.0100, L503.6550, L503.6150 ####[facility] [address] [place], [address] WBC (Bld) [#/Vol] 12.4 10*3/uL High 4.4-11.0 [facility] Comment on above: Performed By: #### L 503.0106, L100.0100, L503.6550, L503.6150 ####[facility] [address] [place], [address] Eosinophil percentageOrdered By: Marycarmen Rodriguez on 09-29-2024 Eosinophils/100 WBC (Bld) 0.7 % 0-5 [facility] Erythrocyte distribution wid th ratioOrdered By: Marycarmen Rodriguez on 09-29-2024 Erythrocyte distribution width (RBC) [Ratio] 14.2 % 11.6-14.6 [facility] Erythrocyte distribution wid th standard deviationOrdered By: Marycarmen Rodriguez on 09-29-2024 Erythrocyte distribution width (RBC) [Ratio] 47.4 fl High 35.1-43.9 [facility] Ferritinon 09-29-2024 Ferritin [Mass/Vol] 454 ng/mL High 37-417 [facility] Comment on above: Performed By: #### L 503.0106, L100.0100, L503.6550, L503.6150 ####[facility] [address] [place], [address] Hematocrit Auto (Bld) [Volum e fraction]Ordered By: Marycarmen Rodriguez on 09-29-2024 Hematocrit (Bld) [Volume fraction] 37.4 % Low 40-54 [facility] Hemoglobin measurementOrdere d By: Marycarmen Jennifer on 09-29-2024 Hemoglobin (Bld) [Mass/Vol] 12.1 g/dL Low 13.0-16.5 [facility] Immature granulocytes/100 WB C Auto (Bld)Ordered By: Marycarmen Jennifer on 09-29-2024 Immature granulocytes/100 WBC (Bld) 3.600 % High 0.0-0.9 [facility] Comment on above: IG% - Immature Granu locytes (promyelocytes, myelocytes and metamyelocytes) > 1% indicates that a LEFT SHIFT is Present. Ironon 09-29-2024 Iron [Mass/Vol] 80 ug/dL Normal 65-175 [facility] Comment on above: Performed By: #### L 503.0106, L100.0100, L503.6550, L503.6150 ####[facility] [address] [place], [address] Iron measurement (mass/mass) Ordered By: Marycarmen Rodriguez on 09-29-2024 Iron (Unsp spec) [Mass/Mass] 80 ug/dL 65-175 [facility] MCV (mean corpuscular volume ) determinationOrdered By: Marycarmen Rodriguez on 09-29-2024 MCV (RBC) [Entitic vol] 91.4 fL 80-94 [facility] Mean corpuscular hemoglobin (MCH) determinationOrdered By: Marycarmen Rodriguez on 09-29-2024 MCH (RBC) [Entitic mass] 29.6 pg 27.0-32.0 [facility] Mean corpuscular hemoglobin concentration (MCHC) determinationOrdered By: Marycarmen Rodriguez on 09-29-2024 MCHC (RBC) [Mass/Vol] 32.4 g/dL 32-36 [facility] Mean platelet volume determi nationOrdered By: Marycarmen Rodriguez on 09-29-2024 Platelet mean volume (Bld) [Entitic vol] 12.3 fL High 6.2-12.0 [facility] Monocyte percentageOrdered B y: Marycarmen Rodriguez on 09-29-2024 Monocytes/100 WBC (Bld) 9.9 % 0-10 [facility] Neutrophil percentageOrdered By: Marycarmen Rodriguez on 09-29-2024 Neutrophils/100 WBC (Bld) 74.3 % High 47-70 [facility] Nucleated red blood cell per centageOrdered By: Marycarmen Rodriguez on 09-29-2024 Nucleated RBC/100 WBC (Bld) [Ratio] 0 % 0-5 [facility] Platelet countOrdered By: Danyelle Rodriguez on 09-29-2024 Platelets (Bld) [#/Vol] 169 10*3/uL 150-450 [facility] RBC Auto (Bld) [#/Vol]Ordere d By: Marycarmen Rodriguez on 09-29-2024 RBC (Bld) [#/Vol] 4.09 10*6/uL Low 4.6-6.2 [facility] Serum or plasma ferritin ritu surement (mass/volume)Ordered By: Marycarmen Rodriguez on 09-29-2024 Ferritin [Mass/Vol] 454 ng/mL High 37-417 [facility] Vitamin B12on 09-29-2024 Cobalamin (Vitamin B12) [Mass/Vol] 766 pg/mL Normal 180-914 [facility] Comment on above: Performed By: #### L 503.0106, L100.0100, L503.6550, L503.6150 ####[facility] [address] [place], [address] Vitamin B12 ser/plasOrdered By: Marycarmen Jennifer on 09-29-2024 Cobalamin (Vitamin B12) [Mass/Vol] 766 pg/mL 180-914 [facility] White blood cell (WBC) count Ordered By: Marycarmen Rodriguez on 09-29-2024 WBC (Bld) [#/Vol] 12.4 10*3/uL High 4.4-11.0 [facility] Absolute lymphocyte countOrd ered By: ELIAZAR Maren Swensonjason on 09-20-2024 Lymphocytes Auto (Unsp spec) [#/Vol] 1.44 10*3/uL 0.83-4.51 [facility] Absolute neutrophil countOrd ered By: ELIAZAR Olivas on 09-20-2024 Neutrophils (Bld) [#/Vol] 6.6 10*3/uL 2.0-7.7 [facility] Automated lymphocyte count a s percentage of total leukocytesOrdered By: ELIAZAR Maren Brendon on 09-20-2024 Lymphocytes/100 WBC Auto (Unsp spec) 15.5 % Low 19-41 [facility] Basophil percentageOrdered B y: ELIAZAR Swensonjason on 09-20-2024 Basophils/100 WBC (Bld) 0.3 % 0-1 [facility] CBC W/Diff, Automatedon - Absolute Lymph 1.44 X10 3/uL Normal 0.83-4.51 [facility] Comment on above: Performed By: #### L 100.0100, L503.4765 ####[facility] [address] [place], [address] Absolute Neut 6.6 X10 3/uL Normal 2.0-7.7 [facility] Comment on above: Performed By: #### L 100.0100, L503.7505 ####[facility] [address] [place], [address] Basophils/100 WBC (Bld) 0.3 % Normal 0-1 [facility] Comment on above: Performed By: #### L 100.0100, L503.7505 ####[facility] [address] [place], [address] Eosinophils/100 WBC (Bld) 1.5 % Normal 0-5 [facility] Comment on above: Performed By: #### L 100.0100, L503.7505 ####[facility] [address] [place], [address] Erythrocyte distribution width (RBC) [Ratio] 14.1 % Normal 11.6-14.6 [facility] Comment on above: Performed By: #### L 100.0100, L503.7505 ####[facility] [address] [place], [address] Hematocrit (Bld) [Volume fraction] 34.8 % Low 40-54 [facility] Comment on above: Performed By: #### L 100.0100, L503.7505 ####[facility] [address] [place], [address] Hemoglobin (Bld) [Mass/Vol] 11.1 g/dL Low 13.0-16.5 [facility] Comment on above: Performed By: #### L 100.0100, L503.7505 ####[facility] [address] [place], [address] IG% 0.800 Normal 0.0-0.9 [facility] Comment on above: Result Comment: IG% - Immature Granulocytes (promyelocytes, myelocytes andmetamyelocytes) > 1% indicates that a LEFT SHIFT is Present. Performed By: #### L 100.0100, L503.7505 ####[facility] [address] [place], [address] Lymphocytes/100 WBC (Bld) 15.5 % Low 19-41 [facility] Comment on above: Performed By: #### L 100.0100, L503.7505 ####[facility] [address] [place], [address] MCH (RBC) [Entitic mass] 29.4 pg Normal 27.0-32.0 [facility] Comment on above: Performed By: #### L 100.0100, L503.7505 ####[facility] [address] [place], [address] MCHC (RBC) [Mass/Vol] 31.9 g/dL Low 32-36 [facility] Comment on above: Performed By: #### L 100.0100, L503.7505 ####[facility] [address] [place], [address] MCV (RBC) [Entitic vol] 92.1 fL Normal 80-94 [facility] Comment on above: Performed By: #### L 100.0100, L503.7505 ####[facility] [address] [place], [address] Monocytes/100 WBC (Bld) 11.1 % High 0-10 [facility] Comment on above: Performed By: #### L 100.0100, L503.7505 ####[facility] [address] [place], [address] Neutrophils/100 WBC (Bld) 70.8 % High 47-70 [facility] Comment on above: Performed By: #### L 100.0100, L503.7505 ####[facility] [address] [place], [address] Nucleated RBC (Bld) [#/Vol] 0 10*3/uL Normal 0-5 [facility] Comment on above: Performed By: #### L 100.0100, L503.7505 ####[facility] [address] [place], [address] Platelet mean volume (Bld) [Entitic vol] 12.6 fL High 6.2-12.0 [facility] Comment on above: Performed By: #### L 100.0100, L503.7505 ####[facility] [address] [place], [address] Platelets (Bld) [#/Vol] 166 10*3/uL Normal 150-450 [facility] Comment on above: Performed By: #### L 100.0100, L503.7505 ####[facility] [address] [place], [address] RBC (Bld) [#/Vol] 3.78 10*6/uL Low 4.6-6.2 [facility] Comment on above: Performed By: #### L 100.0100, L503.7505 ####[facility] [address] [place], [address] RDW SD 48.0 fl High 35.1-43.9 [facility] Comment on above: Performed By: #### L 100.0100, L503.7505 ####[facility] [address] [place], [address] WBC (Bld) [#/Vol] 9.3 10*3/uL Normal 4.4-11.0 [facility] Comment on above: Performed By: #### L 100.0100, L503.7505 ####[facility] [address] [place], [address] Eosinophil percentageOrdered By: ELIAZAR Olivas on 09-20-2024 Eosinophils/100 WBC (Bld) 1.5 % 0-5 [facility] Erythrocyte distribution wid th ratioOrdered By: ELIAZAR Olivas on 09-20-2024 Erythrocyte distribution width (RBC) [Ratio] 14.1 % 11.6-14.6 [facility] Erythrocyte distribution wid th standard deviationOrdered By: ELIAZAR Olivas on 09-20-2024 Erythrocyte distribution width (RBC) [Ratio] 48.0 fl High 35.1-43.9 [facility] Hematocrit Auto (Bld) [Volum e fraction]Ordered By: ELIAZAR Olivas on 09-20-2024 Hematocrit (Bld) [Volume fraction] 34.8 % Low 40-54 [facility] Hemoglobin measurementOrdere d By: ELIAZAR Olivas on 09-20-2024 Hemoglobin (Bld) [Mass/Vol] 11.1 g/dL Low 13.0-16.5 [facility] Immature granulocytes/100 WB C Auto (Bld)Ordered By: ELIAZAR Olivas on 09-20-2024 Immature granulocytes/100 WBC (Bld) 0.800 % 0.0-0.9 [facility] Comment on above: IG% - Immature Granu locytes (promyelocytes, myelocytes and metamyelocytes) > 1% indicates that a LEFT SHIFT is Present. L503.7505on 09-20-2024 Natriuretic peptide B (Bld) [Mass/Vol] 84 pg/mL Normal <=1800 [facility] Comment on above: Result Comment: Hear t Failure Unlikely: < 300 pg/mLHeart Failure Likely< 50 Years: > 450 pg/mL50-75 Years: > 900 pg/mL>75 Years: > 1800 pg/mL Performed By: #### L 100.0100, L503.7505 ####[facility] [address] [place], [address] MCV (mean corpuscular volume ) determinationOrdered By: ELIAZAR Olivas on 09-20-2024 MCV (RBC) [Entitic vol] 92.1 fL 80-94 [facility] Mean corpuscular hemoglobin (MCH) determinationOrdered By: ELIAZAR Olivas on 09-20-2024 MCH (RBC) [Entitic mass] 29.4 pg 27.0-32.0 [facility] Mean corpuscular hemoglobin concentration (MCHC) determinationOrdered By: ELIAZAR Olivas on 09-20-2024 MCHC (RBC) [Mass/Vol] 31.9 g/dL Low 32-36 [facility] Mean platelet volume determi nationOrdered By: ELIAZAR Olivas on 09-20-2024 Platelet mean volume (Bld) [Entitic vol] 12.6 fL High 6.2-12.0 [facility] Monocyte percentageOrdered B y: ELIAZAR Olivas on 09-20-2024 Monocytes/100 WBC (Bld) 11.1 % High 0-10 [facility] Natriuretic peptide.B prohor efrem N-Terminal [Mass/volume] in Serum or PlasmaOrdered By: ELIAZAR Olivas on 09-20-2024 Natriuretic peptide.B prohormone N-Terminal [Mass/Vol] 84 pg/mL <1800 [facility] Comment on above: Heart Failure Unlike ly: < 300 pg/mLHeart Failure Likely< 50 Years: > 450 pg/mL50-75 Years: > 900 pg/mL>75 Years: > 1800 pg/mL Neutrophil percentageOrdered By: ELIAZAR Olivas on 09-20-2024 Neutrophils/100 WBC (Bld) 70.8 % High 47-70 [facility] Nucleated red blood cell per centageOrdered By: ELIAZAR Olivas on 09-20-2024 Nucleated RBC/100 WBC (Bld) [Ratio] 0 % 0-5 [facility] Platelet countOrdered By: ELIAZAR Olivas on 09-20-2024 Platelets (Bld) [#/Vol] 166 10*3/uL 150-450 [facility] Pulmonary Visit Reporton Pulmonary Visit Report Normal [facility] RBC Auto (Bld) [#/Vol]Ordere d By: ELIAZAR Olivas on 09-20-2024 RBC (Bld) [#/Vol] 3.78 10*6/uL Low 4.6-6.2 [facility] White blood cell (WBC) count Ordered By: ELIAZAR Olivas on 09-20-2024 WBC (Bld) [#/Vol] 9.3 10*3/uL 4.4-11.0 [facility] 6 Minute Walk Teston 025 6 Minute Walk Test Normal [facility] Pulmonary Visit Reporton 03- 03-2025 Pulmonary Visit Report Normal [facility] BUN/creatinine ratioOrdered By: Marycarmen Rodriguez on 06-30-2024 Urea nitrogen/Creatinine [Mass ratio] 17.4 mg/mg 10-20 [facility] Basic Metabolic Profile (BMP )on 06-30-2024 Anion gap [Moles/Vol] 11 mmol/L Normal 5-15 [facility] Comment on above: Performed By: #### L 500.2500 ####[facility] [address] [place], [address] BUN/CRE 17.4 RATIO Normal 10-20 [facility] Comment on above: Performed By: #### L 500.2500 ####[facility] [address] [place], [address] Calcium [Mass/Vol] 9.7 mg/dL Normal 7.6-11.0 [facility] Comment on above: Performed By: #### L 500.2500 ####[facility] [address] [place], [address] Chloride [Moles/Vol] 105 mmol/L Normal 96-108 [facility] Comment on above: Performed By: #### L 500.2500 ####[facility] [address] [place], [address] CO2 [Moles/Vol] 25.3 mmol/L Normal 22.0-29.0 [facility] Comment on above: Performed By: #### L 500.2500 ####[facility] [address] [place], [address] Creatinine [Mass/Vol] 1.80 mg/dL High 0.70-1.20 [facility] Comment on above: Performed By: #### L 500.2500 ####[facility] [address] [place], [address] GFR/1.73 sq M.predicted among non-blacks MDRD (S/P/Bld) [Vol rate/Area] 38 mL/min/{1.73_m2} Low >60 [facility] Comment on above: Result Comment: mL/m in/1.73m2 CKD-EPI Creatinine Equation (2020) Performed By: #### L 500.2500 ####[facility] [address] [place], [address] Glucose [Mass/Vol] 112 mg/dL High 70-99 [facility] Comment on above: Performed By: #### L 500.2500 ####[facility] [address] [place], [address] Potassium [Moles/Vol] 4.8 mmol/L Normal 3.3-5.1 [facility] Comment on above: Performed By: #### L 500.2500 ####[facility] [address] [place], [address] Sodium [Moles/Vol] 141 mmol/L Normal 133-145 [facility] Comment on above: Performed By: #### L 500.2500 ####[facility] [address] [place], [address] Urea nitrogen [Mass/Vol] 31 mg/dL High 4-19 [facility] Comment on above: Performed By: #### L 500.2500 ####[facility] [address] [place], [address] Carbon dioxide measurementOr dered By: Marycarmen Rodriguez on 06-30-2024 CO2 [Moles/Vol] 25.3 mmol/L 22.0-29.0 [facility] Chloride measurementOrdered By: Marycarmen Rodriguez on 06-30-2024 Chloride [Moles/Vol] 105 mmol/L 96-108 [facility] GFR/1.73 sq M.predicted ana lilia g non-blacks MDRD (S/P/Bld) [Vol rate/Area]Ordered By: Marycarmen Rodriguez on 06-30-2024 Estimated GFR (MDRD) Non-Af Amer 38 Low >60 [facility] Comment on above: mL/min/1.73m2 CKD-EP I Creatinine Equation (2020) Glomerular filtration rate ( GFR) estimation/1.73 sq m using serum, plasma, or whole bOrdered By: Marycarmen Rodriguez on 06-30-2024 GFR/1.73 sq M.predicted among non-blacks MDRD (S/P/Bld) [Vol rate/Area] 38 mL/min/{1.73_m2} Low >60 [facility] Comment on above: mL/min/1.73m2 CKD-EP I Creatinine Equation (2020) Serum creatinine measurement (mass/volume)Ordered By: Marycarmen Rodriguez on 06-30-2024 Creatinine [Mass/Vol] 1.80 mg/dL High 0.70-1.20 [facility] Serum glucose measurement (m ass/volume)Ordered By: Marycarmen Rodriguez on 06-30-2024 Glucose [Mass/Vol] 112 mg/dL High 70-99 [facility] Serum or plasma anion gap de termination (moles/volume)Ordered By: Marycarmen Rodriguez on 06-30-2024 Anion gap [Moles/Vol] 11 mmol/L 5-15 [facility] Serum or plasma calcium francine urement (mass/volume)Ordered By: Marycarmen Rodriguez on 06-30-2024 Calcium [Mass/Vol] 9.7 mg/dL 7.6-11.0 [facility] Serum or plasma potassium me asurementOrdered By: Marycarmen Rodriguez on 06-30-2024 Potassium [Moles/Vol] 4.8 mmol/L 3.3-5.1 [facility] Serum or plasma sodium measu rement (moles/volume)Ordered By: Marycarmen Rodriguez on 06-30-2024 Sodium [Moles/Vol] 141 mmol/L 133-145 [facility] Serum or plasma urea nitroge n measurement (mass/volume)Ordered By: Marycarmen Rodriguez on 06-30-2024 Urea nitrogen [Mass/Vol] 31 mg/dL High 4-19 [facility] Absolute neutrophil countOrd ered By: Gustabo Pérez on 04-17-2024 Neutrophils (Bld) [#/Vol] 6.0 10*3/uL 2.0-7.7 [facility] BNP (brain natriuretic pepti de measurement)Ordered By: Gustabo Pérez on 04-17-2024 Natriuretic peptide B (Bld) [Mass/Vol] 37.2 pg/mL 0-100 [facility] BNP,B-Type NATRIURETIC PEPTMarcos YINGon 04-17-2024 Natriuretic peptide B (Bld) [Mass/Vol] 37.2 pg/mL Normal 0-100 [facility] Comment on above: Performed By: #### L 500.2500, L100.0100, L503.6620 ####[facility] [address] [place], [address] Basic Metabolic Profile (BMP )on 04-17-2024 BUN/CRE 11.2 RATIO Normal 10-20 [facility] Comment on above: Performed By: #### L 500.2500, L100.0100, L503.6620 ####[facility] [address] [place], [address] CA,Total 9.0 mg/dL Normal 8.5-10.1 [facility] Comment on above: Performed By: #### L 500.2500, L100.0100, L503.6620 ####[facility] [address] [place], [address] Chloride [Moles/Vol] 107 mmol/L Normal 98-107 [facility] Comment on above: Performed By: #### L 500.2500, L100.0100, L503.6620 ####[facility] [address] [place], [address] CO2 [Moles/Vol] 27.0 mmol/L Normal 21.0-32.0 [facility] Comment on above: Performed By: #### L 500.2500, L100.0100, L503.6620 ####[facility] [id number] [place], [address] Creatinine [Mass/Vol] 1.79 mg/dL High 0.70-1.30 [facility] [place] Comment on above: Result Comment: The validity of the calculated GFR GFRAA in patients over70 years has not been determined. Clinical correlation isessential. Performed By: #### L 500.2500, L100.0100, [id number] ####[facility] [id number] [place], [address] EST GFR - AA 47 mL/min Low >60 [facility] Comment on above: Result Comment: Afri can [place] GFR Calc Performed By: #### L 500.2500, L100.0100, [id number] ####[facility] [id number] [place], [address] GAP 4 Low 5-15 [facility] Comment on above: Performed By: #### L 500.2500, L100.0100, [id number] ####[facility] [id number] [place], [address] GFR/1.73 sq M.predicted among non-blacks MDRD (S/P/Bld) [Vol rate/Area] 39 mL/min/{1.73_m2} Low >60 [facility] Comment on above: Result Comment: Non- GFR Calc Performed By: #### L 500.2500, L100.0100, L503.6620 ####[facility] [address] [place], [address] Glucose [Mass/Vol] 228 mg/dL High 74-106 [facility] Comment on above: Result Comment: Gluc ose result greater than or equal to 200 mg/dLsuggests DIABETES MELLITUS per A.D.A. criteria. Performed By: #### L 500.2500, L100.0100, L503.6620 ####[facility] [address] [place], [address] Potassium [Moles/Vol] 4.8 mmol/L Normal 3.5-5.1 [facility] Comment on above: Performed By: #### L 500.2500, L100.0100, L503.6620 ####[facility] [address] [place], [address] Sodium [Moles/Vol] 138 mmol/L Normal 136-145 [facility] Comment on above: Performed By: #### L 500.2500, L100.0100, L503.6620 ####[facility] [address] [place], [address] Urea nitrogen [Mass/Vol] 20 mg/dL High 7- [facility] Comment on above: Performed By: #### L 500.2500, L100.0100, L503.6620 ####[facility] [address] [place], [address] Basophil percentageOrdered B y: Gustabo Pérez on 04-17-2024 Basophils/100 WBC (Bld) 0.5 % 0-1 [facility] Blood urea nitrogen (BUN)/cr eatinine ratioOrdered By: Gustabo Pérez on 04-17-2024 Urea nitrogen/Creatinine [Mass ratio] 11.2 mg/mg - [facility] CBC W/Diff, Automatedon 04-02 Absolute Lymph 1.29 X10 3/uL Normal 0.83-4.51 [facility] Comment on above: Performed By: #### L 500.2500, L100.0100, L503.6620 ####[facility] [address] [place], [address] Absolute Neut 6.0 X10 3/uL Normal 2.0-7.7 [facility] Comment on above: Performed By: #### L 500.2500, L100.0100, L503.6620 ####[facility] [address] [place], [address] Basophils/100 WBC (Bld) 0.5 % Normal 0-1 [facility] Comment on above: Performed By: #### L 500.2500, L100.0100, L503.6620 ####[facility] [address] [place], [address] Eosinophils/100 WBC (Bld) 1.2 % Normal 0-5 [facility] Comment on above: Performed By: #### L 500.2500, L100.0100, L503.6620 ####[facility] [address] [place], [address] Erythrocyte distribution width (RBC) [Ratio] 13.9 % Normal 11.6-14.6 [facility] Comment on above: Performed By: #### L 500.2500, L100.0100, L503.6620 ####[facility] [address] [place], [address] Hematocrit (Bld) [Volume fraction] 41.0 % Normal 40-54 [facility] Comment on above: Performed By: #### L 500.2500, L100.0100, L503.6620 ####[facility] [address] [place], [address] Hemoglobin (Bld) [Mass/Vol] 13.2 g/dL Normal 13.0-16.5 [facility] Comment on above: Performed By: #### L 500.2500, L100.0100, L503.6620 ####[facility] [address] [place], [address] IG% 0.600 Normal 0.0-0.9 [facility] Comment on above: Result Comment: IG% - Immature Granulocytes (promyelocytes, myelocytes andmetamyelocytes) > 1% indicates that a LEFT SHIFT is Present. Performed By: #### L 500.2500, L100.0100, L503.6620 ####[facility] [address] [place], [address] Lymphocytes/100 WBC (Bld) 15.7 % Low 19-41 [facility] Comment on above: Performed By: #### L 500.2500, L100.0100, L503.6620 ####[facility] [address] [place], [address] MCH (RBC) [Entitic mass] 29.2 pg Normal 27.0-32.0 [facility] Comment on above: Performed By: #### L 500.2500, L100.0100, L503.6620 ####[facility] [address] [place], [address] MCHC (RBC) [Mass/Vol] 32.2 g/dL Normal 32-36 [facility] [place] Comment on above: Performed By: #### L 500.2500, L100.0100, L503.6620 ####[facility] [address] [place], [address] MCV (RBC) [Entitic vol] 90.7 fL Normal 80-94 [facility] Comment on above: Performed By: #### L 500.2500, L100.0100, L503.6620 ####[facility] [address] [place], [address] Monocytes/100 WBC (Bld) 8.5 % Normal 0-10 [facility] Comment on above: Performed By: #### L 500.2500, L100.0100, L503.6620 ####[facility] [address] [place], [address] Neutrophils/100 WBC (Bld) 73.5 % High 47-70 [facility] Comment on above: Performed By: #### L 500.2500, L100.0100, L503.6620 ####[facility] [address] [place], [address] Nucleated RBC (Bld) [#/Vol] 0 10*3/uL Normal 0-5 [facility] Comment on above: Performed By: #### L 500.2500, L100.0100, L503.6620 ####[facility] [address] [place], [address] Platelet mean volume (Bld) [Entitic vol] 12.3 fL High 6.2-12.0 [facility] Comment on above: Performed By: #### L 500.2500, L100.0100, L503.6620 ####[facility] [address] [place], [address] Platelets (Bld) [#/Vol] 185 10*3/uL Normal 150-450 [facility] Comment on above: Performed By: #### L 500.2500, L100.0100, L503.6620 ####[facility] [address] [place], [address] RBC (Bld) [#/Vol] 4.52 10*6/uL Low 4.6-6.2 [facility] Comment on above: Performed By: #### L 500.2500, L100.0100, L503.6620 ####[facility] [address] [place], [address] RDW SD 46.4 fl High 35.1-43.9 [facility] Comment on above: Performed By: #### L 500.2500, L100.0100, L503.6620 ####[facility] [address] [place], [address] WBC (Bld) [#/Vol] 8.2 10*3/uL Normal 4.4-11.0 [facility] Comment on above: Performed By: #### L 500.2500, L100.0100, L503.6620 ####[facility] [address] [place], [address] Carbon dioxide measurementOr dered By: Gustabo Pérez on 04-17-2024 CO2 [Moles/Vol] 27.0 mmol/L 21.0-32.0 [facility] Cardiology Visit Reporton Cardiology Visit Report Normal [facility] Chloride measurementOrdered By: Gustabo Pérez on 04-17-2024 Chloride [Moles/Vol] 107 mmol/L 98-107 [facility] Eosinophil percentageOrdered By: Gustabo Pérez on 04-17-2024 Eosinophils/100 WBC (Bld) 1.2 % 0-5 [facility] Erythrocyte distribution wid th ratioOrdered By: Gustabo Pérez on 04-17-2024 Erythrocyte distribution width (RBC) [Ratio] 13.9 % 11.6-14.6 [facility] Erythrocyte distribution wid th standard deviationOrdered By: Gustabo Pérez on 04-17-2024 Erythrocyte distribution width (RBC) [Entitic vol] 46.4 fL High 35.1-43.9 [facility] Estimated glomerular filtrat ion rate (GFR) AmericanOrdered By: Gustabo Pérez on 04-17-2024 Estimated GFR (MDRD) Amer 47 mL/min Low >60 [facility] Comment on above: GFR Calc Glomerular filtration rate ( GFR) estimationOrdered By: Gustabo Pérez on 04-17-2024 Estimated GFR (MDRD) Non-Af Amer 39 mL/min Low >60 [facility] Comment on above: Non- GFR Calc Glucose measurementOrdered B y: Gustabo Pérez on 04-17-2024 Glucose [Mass/Vol] 228 mg/dL High 74-106 [facility] Comment on above: Glucose result great er than or equal to 200 mg/dLsuggests DIABETES MELLITUS per A.D.A. criteria. Hematocrit Auto (Bld) [Volum e fraction]Ordered By: Gustabo Pérez on 04-17-2024 Hematocrit (Bld) [Volume fraction] 41.0 % 40-54 [facility] Hemoglobin measurementOrdere d By: Gustabo Pérez on 04-17-2024 Hemoglobin (Bld) [Mass/Vol] 13.2 g/dL 13.0-16.5 [facility] Immature granulocytes/100 WB C Auto (Bld)Ordered By: Gustabo Pérez on 04-17-2024 Immature granulocytes/100 WBC (Bld) 0.600 % 0.0-0.9 [facility] Comment on above: IG% - Immature Granu locytes (promyelocytes, myelocytes and metamyelocytes) > 1% indicates that a LEFT SHIFT is Present. Lymphocytes Auto (Unsp spec) [#/Vol]Ordered By: Gustabo Pérez on 04-17-2024 Lymphocytes (Bld) [#/Vol] 1.29 10*3/uL 0.83-4.51 [facility] Lymphocytes/100 WBC Auto (Un sp spec)Ordered By: Gustabo Pérez on 04-17-2024 Lymphocytes/100 WBC (Bld) 15.7 % Low 19-41 [facility] MCV (mean corpuscular volume ) determinationOrdered By: Gustabo Pérez on 04-17-2024 MCV (RBC) [Entitic vol] 90.7 fL 80-94 [facility] Mean corpuscular hemoglobin (MCH) determinationOrdered By: Gustabo Pérez on 04-17-2024 MCH (RBC) [Entitic mass] 29.2 pg 27.0-32.0 [facility] Mean corpuscular hemoglobin concentration (MCHC) determinationOrdered By: Gustabo Pérez on 04-17-2024 MCHC (RBC) [Mass/Vol] 32.2 g/dL 32-36 [facility] Mean platelet volume determi nationOrdered By: Gustabo Pérez on 04-17-2024 Platelet mean volume (Bld) [Entitic vol] 12.3 fL High 6.2-12.0 [facility] Monocyte percentageOrdered B y: Gustabo Pérez on 04-17-2024 Monocytes/100 WBC (Bld) 8.5 % 0-10 [facility] Neutrophil percentageOrdered By: Gustabo Pérez on 04-17-2024 Neutrophils/100 WBC (Bld) 73.5 % High 47-70 [facility] Nucleated red blood cell per centageOrdered By: Gustabo Pérez on 04-17-2024 Nucleated RBC/100 WBC (Bld) [Ratio] 0 % 0-5 [facility] Platelet countOrdered By: Lydia Pérez on 04-17-2024 Platelets (Bld) [#/Vol] 185 10*3/uL 150-450 [facility] Potassium measurementOrdered By: Gustabo Pérez on 04-17-2024 Potassium [Moles/Vol] 4.8 mmol/L 3.5-5.1 [facility] RBC Auto (Bld) [#/Vol]Ordere d By: Gustabo Pérez on 04-17-2024 RBC (Bld) [#/Vol] 4.52 10*6/uL Low 4.6-6.2 [facility] Serum anion gap measurementO rdered By: Gustabo Pérez on 04-17-2024 Anion gap [Moles/Vol] 4 mmol/L Low 5-15 [facility] Serum or plasma calcium francine urement (mass/volume)Ordered By: Gustabo Pérez on 04-17-2024 Calcium [Mass/Vol] 9.0 mg/dL 8.5-10.1 [facility] Serum or plasma creatinine m easurement (mass/volume)Ordered By: Gustabo Pérez on 04-17-2024 Creatinine [Mass/Vol] 1.79 mg/dL High 0.70-1.30 [facility] Comment on above: The validity of the calculated GFR & GFRAA in patients over 70 years has not been determined. Clinical correlation is essential. Serum or plasma urea nitroge n measurement (mass/volume)Ordered By: Gustabo Pérez on 04-17-2024 Urea nitrogen [Mass/Vol] 20 mg/dL High 7-18 [facility] Sodium levelOrdered By: Gustabo Pérez on 04-17-2024 Sodium [Moles/Vol] 138 mmol/L 136-145 [facility] White blood cell (WBC) count Ordered By: Gustabo Pérez on 04-17-2024 WBC (Bld) [#/Vol] 8.2 10*3/uL 4.4-11.0 [facility] Office Visit Reporton 2023 Office Visit Report Normal [facility] Albumin to globulin ratioOrd ered By: Jose Hay on 03-23-2024 Albumin/Globulin [Mass ratio] 1.1 {ratio} 0.9-2.4 [facility] Bilirubin, totalOrdered By: Jose Hay on 03-23-2024 Bilirubin [Mass/Vol] 2.00 mg/dL High 0.20-1.00 [facility] Comment on above: For patients on eltr ombopag therapy, use of [employer] [place] TBIL is not recommended. Blood urea nitrogen (BUN)/cr eatinine ratioOrdered By: Jose Hay on 03-23-2024 Urea nitrogen/Creatinine [Mass ratio] 18.0 mg/mg 10-20 [facility] Carbon dioxide measurementOr dered By: Jose Hay on 03-23-2024 CO2 [Moles/Vol] 28.0 mmol/L 21.0-32.0 [facility] Chloride measurementOrdered By: Jose Hay on 03-23-2024 Chloride [Moles/Vol] 104 mmol/L 98-107 [facility] Comprehensive Metabolic Prof ilon 03-23-2024 Albumin [Mass/Vol] 3.7 g/dL Normal 3.2-5.0 [facility] Comment on above: Order Comment: DR REMY ORDERED BMP AND MAGNESIUM.DR HAY ORDERED LIPID CMP TSH. RANGLE Performed By: #### L 501.9520, L501.5200, L500.4050, L500.4100 ####[facility] [address] [place], [address] Albumin/Globulin [Mass ratio] 1.1 {ratio} Normal 0.9-2.4 [facility] Comment on above: Order Comment: DR REMY ORDERED BMP AND MAGNESIUM.DR HAY ORDERED LIPID CMP TSH. RANGLE Performed By: #### L 501.9520, L501.5200, L500.4050, L500.4100 ####[facility] [address] [place], [address] ALK P 92 U/L Normal 45-117 [facility] Comment on above: Order Comment: DR REMY ORDERED BMP AND MAGNESIUM.DR HAY ORDERED LIPID CMP TSH. RANGLE Performed By: #### L 501.9520, L501.5200, L500.4050, L500.4100 ####[facility] [address] [place], [address] ALT [Catalytic activity/Vol] 52 U/L Normal 16-61 [facility] Comment on above: Order Comment: DR RMEY ORDERED BMP AND MAGNESIUM.DR HAY ORDERED LIPID CMP TSH. RANGLE Performed By: #### L 501.9520, L501.5200, L500.4050, L500.4100 ####[facility] [address] [place], [address] AST [Catalytic activity/Vol] 28 U/L Normal 15-37 [facility] Comment on above: Order Comment: DR REMY ORDERED BMP AND MAGNESIUM.DR HAY ORDERED LIPID CMP TSH. RANGLE Performed By: #### L 501.9520, L501.5200, L500.4050, L500.4100 ####[facility] [address] [place], [address] Bilirubin [Mass/Vol] 2.00 mg/dL High 0.20-1.00 [facility] Comment on above: Order Comment: DR REMY ORDERED BMP AND MAGNESIUM.DR HAY ORDERED LIPID CMP TSH. RANGLE Result Comment: For patients on eltrombopag therapy, use of [employer] [place] TBIL is not recommended. Performed By: #### L 501.9520, L501.5200, L500.4050, L500.4100 ####[facility] [address] [place], [address] BUN/CRE 18.0 RATIO Normal 10-20 [facility] Comment on above: Order Comment: DR REMY ORDERED BMP AND MAGNESIUM.DR HAY ORDERED LIPID CMP TSH. RANGLE Performed By: #### L 501.9520, L501.5200, L500.4050, L500.4100 ####[facility] [address] [place], [address] CA,Total 8.8 mg/dL Normal 8.5-10.1 [facility] Comment on above: Order Comment: DR REMY ORDERED BMP AND MAGNESIUM.DR HAY ORDERED LIPID CMP TSH. RANGLE Performed By: #### L 501.9520, L501.5200, L500.4050, L500.4100 ####[facility] [address] [place], [address] Chloride [Moles/Vol] 104 mmol/L Normal 98-107 [facility] Comment on above: Order Comment: DR REMY ORDERED BMP AND MAGNESIUM.DR HAY ORDERED LIPID CMP TSH. RANGLE Performed By: #### L 501.9520, L501.5200, L500.4050, L500.4100 ####[facility] [address] [place], [address] CO2 [Moles/Vol] 28.0 mmol/L Normal 21.0-32.0 [facility] Comment on above: Order Comment: DR REMY ORDERED BMP AND MAGNESIUM.DR HAY ORDERED LIPID CMP TSH. RANGLE Performed By: #### L 501.9520, L501.5200, L500.4050, L500.4100 ####[facility] [address] [place], [address] Creatinine [Mass/Vol] 1.67 mg/dL High 0.70-1.30 [facility] [place] Comment on above: Order Comment: DR REMY ORDERED BMP AND MAGNESIUM.DR HAY ORDERED LIPID CMP TSH. RANGLE Result Comment: The validity of the calculated GFR GFRAA in patients over70 years has not been determined. Clinical correlation isessential. Performed By: #### L 501.9520, L501.5200, L500.4050, L500.4100 ####[facility] [address] [place], [address] EST GFR - AA 51 mL/min Low >60 [facility] Comment on above: Order Comment: DR REMY ORDERED BMP AND MAGNESIUM.DR HAY ORDERED LIPID CMP TSH. RANGLE Result Comment: Afri can [place] GFR Calc Performed By: #### L 501.9520, L501.5200, L500.4050, L500.4100 ####[facility] [address] [place], [address] GAP 6 Normal 5-15 [facility] Comment on above: Order Comment: DR REMY ORDERED BMP AND MAGNESIUM.DR HAY ORDERED LIPID CMP TSH. RANGLE Performed By: #### L 501.9520, L501.5200, L500.4050, L500.4100 ####[facility] [address] [place], [address] GFR/1.73 sq M.predicted among non-blacks MDRD (S/P/Bld) [Vol rate/Area] 42 mL/min/{1.73_m2} Low >60 [facility] Comment on above: Order Comment: DR REMY ORDERED BMP AND MAGNESIUM.DR HAY ORDERED LIPID CMP TSH. RANGLE Result Comment: Non- GFR Calc Performed By: #### L 501.9520, L501.5200, L500.4050, L500.4100 ####[facility] [address] [place], [address] Globulin (S) [Mass/Vol] 3.3 g/dL Normal 2.2-4.2 [facility] Comment on above: Order Comment: DR REMY ORDERED BMP AND MAGNESIUM.DR HAY ORDERED LIPID CMP TSH. RANGLE Performed By: #### L 501.9520, L501.5200, L500.4050, L500.4100 ####[facility] [address] [place], [address] Glucose [Mass/Vol] 146 mg/dL High 74-106 [facility] Comment on above: Order Comment: DR REMY ORDERED BMP AND MAGNESIUM.DR HAY ORDERED LIPID CMP TSH. RANGLE Result Comment: Fast ing Glucose result greater than or equal to 126 mg/dLsuggests DIABETES MELLITUS per A.D.A. criteria. Performed By: #### L 501.9520, L501.5200, L500.4050, L500.4100 ####[facility] [address] [place], [address] Potassium [Moles/Vol] 4.4 mmol/L Normal 3.5-5.1 [facility] Comment on above: Order Comment: DR REMY ORDERED BMP AND MAGNESIUM.DR HAY ORDERED LIPID CMP TSH. RANGLE Performed By: #### L 501.9520, L501.5200, L500.4050, L500.4100 ####[facility] [address] [place], [address] Sodium [Moles/Vol] 138 mmol/L Normal 136-145 [facility] Comment on above: Order Comment: DR REMY ORDERED BMP AND MAGNESIUM.DR HAY ORDERED LIPID CMP TSH. RANGLE Performed By: #### L 501.9520, L501.5200, L500.4050, L500.4100 ####[facility] [address] [place], [address] T PROT 7.0 g/dL Normal 6.4-8.2 [facility] Comment on above: Order Comment: DR REMY ORDERED BMP AND MAGNESIUM.DR HAY ORDERED LIPID CMP TSH. RANGLE Performed By: #### L 501.9520, L501.5200, L500.4050, L500.4100 ####[facility] [address] [place], [address] Urea nitrogen [Mass/Vol] 30 mg/dL High 7-18 [facility] Comment on above: Order Comment: DR REMY ORDERED BMP AND MAGNESIUM.DR HAY ORDERED LIPID CMP TSH. RANGLE Performed By: #### L 501.9520, L501.5200, L500.4050, L500.4100 ####[facility] [address] [place], [address] Estimated glomerular filtrat ion rate (GFR) AmericanOrdered By: Jose Hay on 03-23-2024 Estimated GFR (MDRD) Amer 51 mL/min Low >60 [facility] Comment on above: GFR Calc Glomerular filtration rate ( GFR) estimationOrdered By: Jose Hay on 03-23-2024 Estimated GFR (MDRD) Non-Af Amer 42 mL/min Low >60 [facility] Comment on above: Non- GFR Calc Glucose measurementOrdered B y: Jose Hay on 03-23-2024 Glucose [Mass/Vol] 146 mg/dL High 74-106 [facility] Comment on above: Fasting Glucose resu lt greater than or equal to 126 mg/dL suggests DIABETES MELLITUS per A.D.A. criteria. High density lipoprotein (HD L) measurementOrdered By: Jose Hay on 03-23-2024 Cholesterol in HDL [Mass/Vol] 52 mg/dL >40 [facility] Comment on above: The drugs N-Acetylcy steine and Metamizole may falsely depress this assay. Reference Range HDL <40 mg/dL Low HDL Cholesterol HDL >or= 60 mg/dL High HDL Cholesterol Laboratory - Chemistry and C hemistry - challengeOrdered By: Jose Hay on 03-23-2024 AST [Catalytic activity/Vol] 28 U/L 15-37 [facility] Lipid Profileon 03-23-2024 Cholesterol [Mass/Vol] 158 mg/dL Normal 200 [facility] Comment on above: Order Comment: DR REMY ORDERED BMP AND MAGNESIUM.DR HAY ORDERED LIPID CMP TSH. RANGLE Result Comment: <200 mg/dL Desirable 200-240 mg/dL Borderline >240 mg/dL High Risk Performed By: #### L 501.9520, L501.5200, L500.4050, L500.4100 ####[facility] [address] [place], [address] Cholesterol in HDL [Mass/Vol] 52 mg/dL Normal [facility] Comment on above: Order Comment: DR REMY ORDERED BMP AND MAGNESIUM.DR HAY ORDERED LIPID CMP TSH. RANGLE Result Comment: The drugs N-Acetylcysteine and Metamizole may falselydepress this assay. Reference Range HDL <40 mg/dL Low HDL Cholesterol HDL >or= 60 mg/dL High HDL Cholesterol Performed By: #### L 501.9520, L501.5200, L500.4050, L500.4100 ####[facility] [address] [place], [address] Cholesterol in LDL [Mass/Vol] 61 mg/dL Normal 0-130 [facility] Comment on above: Order Comment: DR REMY ORDERED BMP AND MAGNESIUM.DR HAY ORDERED LIPID CMP TSH. RANGLE Performed By: #### L 501.9520, L501.5200, L500.4050, L500.4100 ####[facility] [address] [place], [address] Cholesterol in VLDL [Mass/Vol] 45 mg/dL High 5-40 [facility] Comment on above: Order Comment: DR REMY ORDERED BMP AND MAGNESIUM.DR HAY ORDERED LIPID CMP TSH. RANGLE Performed By: #### L 501.9520, L501.5200, L500.4050, L500.4100 ####[facility] [address] [place], [address] Triglyceride [Mass/Vol] 225 mg/dL High [facility] Comment on above: Order Comment: DR REMY ORDERED BMP AND MAGNESIUM.DR HAY ORDERED LIPID CMP TSH. RANGLE Result Comment: The drugs N-Acetylcysteine and Metamizole may falselydepress this assay.Serum Triglycerides Reference Interval Normal <150 mg/dL Borderline high 150 - 199 mg/dL High 200 - 499 mg/dL Very High > or = 500 mg/dL Performed By: #### L 501.9520, L501.5200, L500.4050, L500.4100 ####[facility] [address] [place], [address] Low density lipoprotein (LDL ) cholesterol measurementOrdered By: Jose Hay on 03-23-2024 Cholesterol in LDL [Mass/Vol] 61 mg/dL 0-130 [facility] Magnesiumon 03-23-2024 Magnesium [Mass/Vol] 2.1 mg/dL Normal 1.6-2.6 [facility] Comment on above: Order Comment: DR REMY ORDERED BMP AND MAGNESIUM.DR HAY ORDERED LIPID CMP TSH. RANGLE Performed By: #### L 501.9520, L501.5200, L500.4050, L500.4100 ####[facility] [address] [place], [address] Magnesium measurementOrdered By: Jose Hay on 03-23-2024 Magnesium [Mass/Vol] 2.1 mg/dL 1.6-2.6 [facility] Potassium measurementOrdered By: Jose Hay on 03-23-2024 Potassium [Moles/Vol] 4.4 mmol/L 3.5-5.1 [facility] Serum anion gap measurementO rdered By: Jose Hay on 03-23-2024 Anion gap [Moles/Vol] 6 mmol/L 5-15 [facility] Serum globulin measurementOr dered By: Jose Hay on 03-23-2024 Globulin (S) [Mass/Vol] 3.3 g/dL 2.2-4.2 [facility] Serum or plasma alanine guerrero otransferase (ALT) measurementOrdered By: Jose Hay on 03-23-2024 ALT [Catalytic activity/Vol] 52 U/L 16-61 [facility] Serum or plasma albumin francine urement (mass/volume)Ordered By: Jose Hay on 03-23-2024 Albumin [Mass/Vol] 3.7 g/dL 3.2-5.0 [facility] Serum or plasma alkaline bell sphatase measurementOrdered By: Jose Hay on 03-23-2024 ALP [Catalytic activity/Vol] 92 U/L 45-117 [facility] Serum or plasma calcium francine urement (mass/volume)Ordered By: Jose Hay on 03-23-2024 Calcium [Mass/Vol] 8.8 mg/dL 8.5-10.1 [facility] Serum or plasma cholesterol measurement (mass/volume)Ordered By: Jose Hay on 03-23-2024 Cholesterol [Mass/Vol] 158 mg/dL <200 [facility] Comment on above: <200 mg/dL Desirable 200-240 mg/dL Borderline >240 mg/dL High Risk Serum or plasma creatinine m easurement (mass/volume)Ordered By: Jose Hay on 03-23-2024 Creatinine [Mass/Vol] 1.67 mg/dL High 0.70-1.30 [facility] Comment on above: The validity of the calculated GFR & GFRAA in patients over 70 years has not been determined. Clinical correlation is essential. Serum or plasma urea nitroge n measurement (mass/volume)Ordered By: Jose Hay on 03-23-2024 Urea nitrogen [Mass/Vol] 30 mg/dL High - [facility] Sodium levelOrdered By: Ernst Hay on 03-23-2024 Sodium [Moles/Vol] 138 mmol/L 136-145 [facility] TSH QnOrdered By: Jose rodriguez on 03-23-2024 Thyroid Stimulating Hormone (TSH) 5.340 uIU/mL High 0.358-3.74 0 [facility] Thyroid Stim Hormone (TSH)on 03-23-2024 TSH 5.340 uIU/mL High 0.358-3.74 0 [facility] Comment on above: Order Comment: DR REMY ORDERED BMP AND MAGNESIUM.DR HAY ORDERED LIPID CMP TSH. [facility] Performed By: #### L [id number], L501.5200, L500.4050, L500.4100 ####[facility] [id number] [place], [address] Total proteinOrdered By: Emmanuel Hay on 03-23-2024 Protein [Mass/Vol] 7.0 g/dL 6.4-8.2 [facility] Triglycerides measurementOrd ered By: Jose Hay on 03-23-2024 Triglyceride [Mass/Vol] 225 mg/dL High <199 [facility] Comment on above: The drugs N-Acetylcy steine and Metamizole may falsely depress this assay.Serum Triglycerides Reference Interval Normal <150 mg/dL Borderline high 150 - 199 mg/dL High 200 - 499 mg/dL Very High > or = 500 mg/dL Very low density lipoprotein (VLDL) cholesterol measurementOrdered By: Jose Hay on 03-23-2024 VLDL Cholesterol 45 mg/dL High 5-40 [facility] Cardiology Visit Reporton Cardiology Visit Report Normal [facility] Basophil percentageOrdered B y: Marycarmen Rodriguez on 05-07-2023 Chloride [Moles/Vol] 103 mmol/L 98-[address] [facility] Glucose [Mass/Vol] 172 mg/dL 74-106 [facility] Comment on above: Fasting Glucose resu lt greater than or equal to 126 mg/dL suggests DIABETES MELLITUS per A.D.A. criteria. Potassium [Moles/Vol] 3.7 mmol/L 3.5-5.1 [facility] Sodium [Moles/Vol] 138 mmol/L 136-145 [facility] Laboratory - Chemistry and C hemistry - challengeOrdered By: Marycarmen Rodriguez on 05-07-2023 CO2 [Moles/Vol] 27.0 mmol/L 21.0-32.0 [facility] Urea nitrogen/Creatinine [Mass ratio] 13.9 mg/mg 10-20 [facility] No Panel InformationOrdered By: Marycarmen Rodriguez on 05-07-2023 Estimated GFR (MDRD) Amer 74 mL/min >60 [facility] Comment on above: GFR Calc Estimated GFR (MDRD) Non-Af Amer 61 mL/min >60 [facility] Comment on above: Non- GFR Calc Serum or plasma calcium francine urement (mass/volume)Ordered By: Marycarmen Rodriguez on 05-07-2023 Calcium [Mass/Vol] 8.6 mg/dL 8.5-10.1 [facility] Serum or plasma creatinine m easurement (mass/volume)Ordered By: Marycarmen Rodriguez on 05-07-2023 Creatinine [Mass/Vol] 1.22 mg/dL 0.70-1.30 [facility] Comment on above: The validity of the calculated GFR & GFRAA in patients over 70 years has not been determined. Clinical correlation is essential. Serum or plasma urea nitroge n measurement (mass/volume)Ordered By: Marycarmen Rodriguez on 05-07-2023 Urea nitrogen [Mass/Vol] 17 mg/dL 7-18 [facility] Thin prep Papanicolaou smear with manual screeningOrdered By: Marycarmen Rodriguez on 05-07-2023 Thin prep Papanicolaou smear with manual screening 8 5-15 [facility] Basophil percentageOrdered B y: Jose Hay on 12-15-2022 Chloride [Moles/Vol] 110 mmol/L 98-107 [facility] Glucose [Mass/Vol] 121 mg/dL 74-106 [facility] Comment on above: Fasting Glucose resu lt from 100 to 125 mg/dL suggests IMPAIRED HOMEOSTASIS per A.D.A. criteria. Potassium [Moles/Vol] 4.0 mmol/L 3.5-5.1 [facility] Sodium [Moles/Vol] 139 mmol/L 136-145 [facility] WBC (Bld) [#/Vol] 7.3 10*3/uL 4.4-11.0 [facility] Blood erythrocytes count (nu mber/volume)Ordered By: Jose Hay on 12-15-2022 RBC (Bld) [#/Vol] 5.18 10*6/uL 4.6-6.2 [facility] Blood hemoglobin measurement (mass/volume)Ordered By: Jose Hay on 12-15-2022 Hemoglobin (Bld) [Mass/Vol] 15.2 g/dL 13.0-16.5 [facility] Blood platelet mean volumeOr dered By: Jose Hay on 12-15-2022 Platelet mean volume (Bld) [Entitic vol] 12.2 fL 6.2-12.0 [facility] Determination of erythrocyte mean corpuscular volume (MCV)Ordered By: Jose Hay on 12-15-2022 MCV (RBC) [Entitic vol] 90.2 fL 80-94 [facility] Hematocrit Auto (Bld) [Volum e fraction]Ordered By: Josemorro Hay on 12-15-2022 Hematocrit (Bld) [Volume fraction] 46.7 % 40-54 [facility] Laboratory - Chemistry and C hemistry - challengeOrdered By: Jose Hay on 12-15-2022 CO2 [Moles/Vol] 23.0 mmol/L 21.0-32.0 [facility] Natriuretic peptide B (Bld) [Mass/Vol] 38.1 pg/mL 0-100 [facility] Urea nitrogen/Creatinine [Mass ratio] 13.5 mg/mg 10-20 [facility] Laboratory - Hematology and Cell countsOrdered By: Jose Hay on 12-15-2022 Erythrocyte distribution width (RBC) [Entitic vol] 47.5 fL 35.1-43.9 [facility] Erythrocyte distribution width (RBC) [Ratio] 14.4 % 11.6-14.6 [facility] MCH (RBC) [Entitic mass] 29.3 pg 27.0-32.0 [facility] MCHC Auto (RBC) [Mass/Vol]Or dered By: Jose Hay on 12-15-2022 MCHC (RBC) [Mass/Vol] 32.5 g/dL 32-36 [facility] No Panel InformationOrdered By: Jose Hay on 12-15-2022 Estimated GFR (MDRD) Amer 83 mL/min >60 [facility] Comment on above: GFR Calc Estimated GFR (MDRD) Non-Af Amer 68 mL/min >60 [facility] Comment on above: Non- GFR Calc Platelets bldOrdered By: Emmanuel Hay on 12-15-2022 Platelets (Bld) [#/Vol] 143 10*3/uL 150-450 [facility] Serum or plasma calcium francine urement (mass/volume)Ordered By: Jose Hay on 12-15-2022 Calcium [Mass/Vol] 8.8 mg/dL 8.5-10.1 [facility] Serum or plasma creatinine m easurement (mass/volume)Ordered By: Jose Hay on 12-15-2022 Creatinine [Mass/Vol] 1.11 mg/dL 0.70-1.30 [facility] Comment on above: The validity of the calculated GFR & GFRAA in patients over 70 years has not been determined. Clinical correlation is essential. Serum or plasma urea nitroge n measurement (mass/volume)Ordered By: Jose Hay on 12-15-2022 Urea nitrogen [Mass/Vol] 15 mg/dL 7-18 [facility] Thin prep Papanicolaou smear with manual screeningOrdered By: Jose Hay on 12-15-2022 Thin prep Papanicolaou smear with manual screening 6 - [facility] Absolute lymphocyte countOrd ered By: Luz Elena Mckeno on 10-13-2022 Lymphocytes Auto (Unsp spec) [#/Vol] 1.21 10*3/uL 0.83-4.51 [facility] Basophil percentageOrdered B y: Luz Elena Mckeon on 10-13-2022 Basophils/100 WBC (Bld) 0.5 % 0-1 [facility] Chloride [Moles/Vol] 106 mmol/L 98-107 [facility] Eosinophils/100 WBC (Bld) 1.4 % 0-5 [facility] Glucose [Mass/Vol] 277 mg/dL 74-106 [facility] Comment on above: Glucose result great er than or equal to 200 mg/dLsuggests DIABETES MELLITUS per A.D.A. criteria. Neutrophils (Bld) [#/Vol] 4.0 10*3/uL 2.0-7.7 [facility] Neutrophils/100 WBC (Bld) 68.5 % 47-70 [facility] Potassium [Moles/Vol] 4.1 mmol/L 3.5-5.1 [facility] Sodium [Moles/Vol] 139 mmol/L 136-145 [facility] WBC (Bld) [#/Vol] 5.8 10*3/uL 4.4-11.0 [facility] Blood erythrocytes count (nu mber/volume)Ordered By: Luz Elena Mckeon on 10-13-2022 RBC (Bld) [#/Vol] 4.66 10*6/uL 4.6-6.2 [facility] Blood hemoglobin measurement (mass/volume)Ordered By: Luz Elena Mckeon on 10-13-2022 Hemoglobin (Bld) [Mass/Vol] 13.6 g/dL 13.0-16.5 [facility] Blood lymphocytes/100 leukoc ytesOrdered By: Luz Elena Mckeon on 10-13-2022 Lymphocytes/100 WBC (Bld) 20.7 % 19-41 [facility] Blood monocytes/100 leukocyt esOrdered By: Luz Elena Mckeon on 10-13-2022 Monocytes/100 WBC (Bld) 8.6 % 0-10 [facility] Blood platelet mean volumeOr dered By: Luz Elena Mckeon on 10-13-2022 Platelet mean volume (Bld) [Entitic vol] 12.6 fL 6.2-12.0 [facility] Determination of erythrocyte mean corpuscular volume (MCV)Ordered By: Luz Elena Mckeon on 10-13-2022 MCV (RBC) [Entitic vol] 89.5 fL 80-94 [facility] Hematocrit Auto (Bld) [Volum e fraction]Ordered By: Luz Elena Mckeon on 10-13-2022 Hematocrit (Bld) [Volume fraction] 41.7 % 40-54 [facility] Laboratory - Chemistry and C hemistry - challengeOrdered By: Luz Elena Mckeon on 10-13-2022 CO2 [Moles/Vol] 27.0 mmol/L 21.0-32.0 [facility] Free T4 [Mass/Vol] 0.77 ng/dL 0.76-1.46 [facility] Magnesium [Mass/Vol] 2.1 mg/dL 1.6-2.[address] [facility] [address] [facility] Natriuretic peptide B (Bld) [Mass/Vol] 47.2 pg/mL 0-100 [facility] Urea nitrogen/Creatinine [Mass ratio] 17.2 mg/mg 10-20 [facility] Laboratory - Hematology and Cell countsOrdered By: Luz Elena Mckeon on 10-13-2022 Erythrocyte distribution width (RBC) [Entitic vol] 46.1 fL 35.1-43.9 [facility] Erythrocyte distribution width (RBC) [Ratio] 14.1 % 11.6-14.6 [facility] Immature granulocytes/100 WBC (Bld) 0.300 % 0.0-0.9 [facility] Comment on above: IG% - Immature Granu locytes (promyelocytes, myelocytes and metamyelocytes) > 1% indicates that a LEFT SHIFT is Present. MCH (RBC) [Entitic mass] 29.2 pg 27.0-32.0 [facility] Nucleated RBC/100 WBC (Bld) [Ratio] 0 % 0-5 [facility] MCHC Auto (RBC) [Mass/Vol]Or dered By: Luz Elena Mckeon on 10-13-2022 MCHC (RBC) [Mass/Vol] 32.6 g/dL 32-36 [facility] No Panel InformationOrdered By: Luz Elena Mckeon on 10-13-2022 Estimated GFR (MDRD) Amer 61 mL/min >60 [facility] Comment on above: GFR Calc Estimated GFR (MDRD) Non-Af Amer 50 mL/min >60 [facility] Comment on above: Non- GFR Calc Free Triiodothyronine (T3) pg/dL 2.7 pg/mL 2.18-3.98 [facility] Thyroid Stimulating Hormone (TSH) 4.12 uIU/mL 0.358-3.74 [facility] Platelets bldOrdered By: Loco Mckeon on 10-13-2022 Platelets (Bld) [#/Vol] 126 10*3/uL 150-450 [facility] Serum or plasma calcium francine urement (mass/volume)Ordered By: Luz Elena Mckeon on 10-13-2022 Calcium [Mass/Vol] 8.5 mg/dL 8.5-10.1 [facility] Serum or plasma creatinine m easurement (mass/volume)Ordered By: Luz Elena Mckeon on 10-13-2022 Creatinine [Mass/Vol] 1.45 mg/dL 0.70-1.30 [facility] Comment on above: The validity of the calculated GFR & GFRAA in patients over 70 years has not been determined. Clinical correlation is essential. Serum or plasma urea nitroge n measurement (mass/volume)Ordered By: Luz Elena Mckeon on 10-13-2022 Urea nitrogen [Mass/Vol] 25 mg/dL 7-18 [facility] Thin prep Papanicolaou smear with manual screeningOrdered By: Luz Elena Mckeon on 10-13-2022 Thin prep Papanicolaou smear with manual screening 6 5-15 [facility] COVID-19 virus antigen assay Ordered By: Shaan Santos on 09-21-2022 SARS-CoV-2 (COVID-19) Ag IA.rapid Ql (Resp) [facility] COVID-19 virus antigen assay Ordered By: Dr. Santos on 09-21-2022 SARS-CoV-2 (COVID-19) Ag IA.rapid Ql (Resp) [facility] Glucose Glucometer (BldC) [M ass/Vol]Ordered By: Dr. Santos on 09-21-2022 Glucose [Mass/Vol] 193 mg/dL 74-106 [facility] Comment on above: MANAGEMENT OF PATIEN T CARE PER NURSING PROTOCOL Absolute lymphocyte countOrd ered By: Dr. Leo on 09-18-2022 Lymphocytes Auto (Unsp spec) [#/Vol] 1.83 10*3/uL 0.83-4.51 [facility] Basophil percentageOrdered B y: Dr. Leo on 09-18-2022 Basophils/100 WBC (Bld) 0.3 % 0-1 [facility] Bilirubin [Mass/Vol] 1.20 mg/dL 0.20-1.00 [facility] Comment on above: For patients on eltr ombopag therapy, use of Dimension [place] TBIL is not recommended. Chloride [Moles/Vol] 108 mmol/L 98-107 [facility] Cholesterol [Mass/Vol] 114 mg/dL <200 [facility] Comment on above: <200 mg/dL Desirable 200-240 mg/dL Borderline >240 mg/dL High Risk Eosinophils/100 WBC (Bld) 2.0 % 0-5 [facility] Glucose [Mass/Vol] 87 mg/dL 74-106 [facility] Neutrophils (Bld) [#/Vol] 4.3 10*3/uL 2.0-7.7 [facility] Neutrophils/100 WBC (Bld) 60.9 % 47-70 [facility] Potassium [Moles/Vol] 3.5 mmol/L 3.5-5.1 [facility] Protein [Mass/Vol] 5.9 g/dL 6.4-8.2 [facility] Sodium [Moles/Vol] 142 mmol/L 136-145 [facility] Triglyceride [Mass/Vol] 174 mg/dL <199 [facility] Comment on above: The drugs N-Acetylcy steine and Metamizole may falsely depress this assay.Serum Triglycerides Reference Interval Normal <150 mg/dL Borderline high 150 - 199 mg/dL High 200 - 499 mg/dL Very High > or = 500 mg/dL WBC (Bld) [#/Vol] 7.0 10*3/uL 4.4-11.0 [facility] Blood erythrocytes count (nu mber/volume)Ordered By: Dr. Leo on 09-18-2022 RBC (Bld) [#/Vol] 4.64 10*6/uL 4.6-6.2 [facility] Blood hemoglobin measurement (mass/volume)Ordered By: Dr. Leo on 09-18-2022 Hemoglobin (Bld) [Mass/Vol] 13.2 g/dL 13.0-16.5 [facility] Blood lymphocytes/100 leukoc ytesOrdered By: Dr. Leo on 09-18-2022 Lymphocytes/100 WBC (Bld) 26.1 % 19-41 [facility] Blood monocytes/100 leukocyt esOrdered By: Dr. Leo on 09-18-2022 Monocytes/100 WBC (Bld) 10.4 % 0-10 [facility] Blood platelet mean volumeOr dered By: Dr. Leo on 09-18-2022 Platelet mean volume (Bld) [Entitic vol] 12.3 fL 6.2-12.0 [facility] Determination of erythrocyte mean corpuscular volume (MCV)Ordered By: Dr. Leo on 09-18-2022 MCV (RBC) [Entitic vol] 90.1 fL 80-94 [facility] Hematocrit Auto (Bld) [Volum e fraction]Ordered By: Dr. Leo on 09-18-2022 Hematocrit (Bld) [Volume fraction] 41.8 % 40-54 [facility] Laboratory - Chemistry and C hemistry - challengeOrdered By: Dr. Leo on 09-18-2022 ALP [Catalytic activity/Vol] 113 U/L 45-117 [facility] ALT [Catalytic activity/Vol] 31 U/L 16-61 [facility] CO2 [Moles/Vol] 26.0 mmol/L 21.0-32.0 [facility] Globulin (S) [Mass/Vol] 3.0 g/dL 2.2-4.2 [facility] Urea nitrogen/Creatinine [Mass ratio] 13.4 mg/mg 10-20 [facility] Laboratory - Hematology and Cell countsOrdered By: Dr. Leo on 09-18-2022 Erythrocyte distribution width (RBC) [Entitic vol] 46.9 fL 35.1-43.9 [facility] Erythrocyte distribution width (RBC) [Ratio] 14.4 % 11.6-14.6 [facility] Immature granulocytes/100 WBC (Bld) 0.300 % 0.0-0.9 [facility] Comment on above: IG% - Immature Granu locytes (promyelocytes, myelocytes and metamyelocytes) > 1% indicates that a LEFT SHIFT is Present. MCH (RBC) [Entitic mass] 28.4 pg 27.0-32.0 [facility] Nucleated RBC/100 WBC (Bld) [Ratio] 0 % 0-5 [facility] MCHC Auto (RBC) [Mass/Vol]Or dered By: Dr. Leo on 09-18-2022 MCHC (RBC) [Mass/Vol] 31.6 g/dL 32-36 [facility] No Panel InformationOrdered By: Dr. Leo on 09-18-2022 Estimated Creatinine Clearance Calc 47.13 ml/min [facility] Estimated GFR (MDRD) Amer 71 mL/min >60 [facility] Comment on above: GFR Calc Estimated GFR (MDRD) Non-Af Amer 58 mL/min >60 [facility] Comment on above: Non- GFR Calc Thyroid Stimulating Hormone (TSH) 3.64 uIU/mL 0.358-3.74 [facility] Troponin I High Sensitivity 8 pg/mL 3.0-78.0 [facility] Comment on above: Please Note: [place] t Units and Gender Specific Reference Ranges. For more information see Policy Stat Procedure [place] High Sensitivity Troponin (TNIH) and attachments. Platelets bldOrdered By: Dr. Leo on 09-18-2022 Platelets (Bld) [#/Vol] 131 10*3/uL 150-450 [facility] Serum or plasma albumin francine urement (mass/volume)Ordered By: Dr. Leo on 09-18-2022 Albumin [Mass/Vol] 2.9 g/dL 3.2-5.0 [facility] Serum or plasma albumin/glob ulin mass ratioOrdered By: Dr. Leo on 09-18-2022 Albumin/Globulin [Mass ratio] 1.0 {ratio} 0.9-2.4 [facility] Serum or plasma calcium francine urement (mass/volume)Ordered By: Dr. Leo on 09-18-2022 Calcium [Mass/Vol] 7.6 mg/dL 8.5-10.1 [facility] Serum or plasma cholesterol in HDL measurement (mass/volume)Ordered By: Dr. Leo on 09-18-2022 Cholesterol in HDL [Mass/Vol] 36 mg/dL >40 [facility] Comment on above: The drugs N-Acetylcy steine and Metamizole may falsely depress this assay. Reference Range HDL <40 mg/dL Low HDL Cholesterol HDL >or= 60 mg/dL High HDL Cholesterol Serum or plasma cholesterol in VLDL measurement (mass/volume)Ordered By: Dr. Leo on 09-18-2022 Cholesterol in VLDL [Mass/Vol] 35 mg/dL 5-40 [facility] Serum or plasma creatinine m easurement (mass/volume)Ordered By: Dr. Leo on 09-18-2022 Creatinine [Mass/Vol] 1.27 mg/dL 0.70-1.30 [facility] Comment on above: The validity of the calculated GFR & GFRAA in patients over 70 years has not been determined. Clinical correlation is essential. Serum or plasma low density lipoprotein (LDL) cholesterol measurement (mass/volume)Ordered By: Dr. Leo on 09-18-2022 Cholesterol in LDL [Mass/Vol] 43 mg/dL 0-130 [facility] Serum or plasma urea nitroge n measurement (mass/volume)Ordered By: Dr. Leo on 09-18-2022 Urea nitrogen [Mass/Vol] 17 mg/dL 7-18 [facility] Thin prep Papanicolaou smear with manual screeningOrdered By: Dr. Leo on 09-18-2022 Thin prep Papanicolaou smear with manual screening 21 U/L 15-37 [facility] Thin prep Papanicolaou smear with manual screening 8 5-15 [facility] Whole blood hemoglobin A1c/t otal hemoglobin ratio (mass fraction)Ordered By: Dr. Leo on 09-18-2022 HbA1c (Bld) [Mass fraction] 7.7 % 3.8-5.6 [facility] Comment on above: Normal < 5.7 % Predi abetic 5.7 - 6.4 % Diabetic >or= 6.5 % Please note range changes. INR in Blood by Coagulation assayOrdered By: Dr. Hall on 09-17-2022 INR Coag (Bld) [Relative time] 0.9 {INR} [facility] Laboratory - Chemistry and C hemistry - challengeOrdered By: Dr. Leo on 09-17-2022 Magnesium [Mass/Vol] 2.3 mg/dL 1.6-2.6 [facility] Laboratory - CoagulationOrde red By: Dr. Hall on 09-17-2022 aPTT Coag (Bld) [Time] 32.1 s 24.1-36.2 [facility] PT Coag (PPP) [Time] 12.3 s 11.7-14.9 [facility] Basophil percentageOrdered B y: Dr. Hay on 09-01-2022 Bilirubin [Mass/Vol] 0.70 mg/dL 0.20-1.00 [facility] Comment on above: For patients on eltr ombopag therapy, use of Dimension [place] TBIL is not recommended. Chloride [Moles/Vol] 112 mmol/L 98-107 [facility] Glucose [Mass/Vol] 151 mg/dL 74-106 [facility] Comment on above: Fasting Glucose resu lt greater than or equal to 126 mg/dL suggests DIABETES MELLITUS per A.D.A. criteria. Potassium [Moles/Vol] 3.9 mmol/L 3.5-5.1 [facility] Protein [Mass/Vol] 5.7 g/dL 6.4-8.2 [facility] Sodium [Moles/Vol] 142 mmol/L 136-145 [facility] WBC (Bld) [#/Vol] 4.7 10*3/uL 4.4-11.0 [facility] Blood erythrocytes count (nu mber/volume)Ordered By: Dr. Hay on 09-01-2022 RBC (Bld) [#/Vol] 4.60 10*6/uL 4.6-6.2 [facility] Blood hemoglobin measurement (mass/volume)Ordered By: Dr. Hay on 09-01-2022 Hemoglobin (Bld) [Mass/Vol] 13.0 g/dL 13.0-16.5 [facility] Blood platelet mean volumeOr dered By: Dr. Hay on 09-01-2022 Platelet mean volume (Bld) [Entitic vol] 12.8 fL 6.2-12.0 [facility] Determination of erythrocyte mean corpuscular volume (MCV)Ordered By: Dr. Hay on 09-01-2022 MCV (RBC) [Entitic vol] 89.1 fL 80-94 [facility] Hematocrit Auto (Bld) [Volum e fraction]Ordered By: Dr. Hay on 09-01-2022 Hematocrit (Bld) [Volume fraction] 41.0 % 40-54 [facility] Laboratory - Chemistry and C hemistry - challengeOrdered By: Dr. Hay on 09-01-2022 ALP [Catalytic activity/Vol] 149 U/L 45-117 [facility] ALT [Catalytic activity/Vol] 35 U/L 16-61 [facility] CO2 [Moles/Vol] 27.0 mmol/L 21.0-32.0 [facility] Globulin (S) [Mass/Vol] 2.9 g/dL 2.2-4.2 [facility] Urea nitrogen/Creatinine [Mass ratio] 15.8 mg/mg 10-20 [facility] Laboratory - Hematology and Cell countsOrdered By: Dr. Hay on 09-01-2022 Erythrocyte distribution width (RBC) [Entitic vol] 44.1 fL 35.1-43.9 [facility] Erythrocyte distribution width (RBC) [Ratio] 13.5 % 11.6-14.6 [facility] MCH (RBC) [Entitic mass] 28.3 pg 27.0-32.0 [facility] MCHC Auto (RBC) [Mass/Vol]Or dered By: Dr. Hay on 09-01-2022 MCHC (RBC) [Mass/Vol] 31.7 g/dL 32-36 [facility] No Panel InformationOrdered By: Dr. Hay on 09-01-2022 Estimated Creatinine Clearance Calc 46.51 ml/min [facility] Estimated GFR (MDRD) Amer 67 mL/min >60 [facility] Comment on above: GFR Calc Estimated GFR (MDRD) Non-Af Amer 55 mL/min >60 [facility] Comment on above: Non- GFR Calc Platelets bldOrdered By: Dr. Hay on 09-01-2022 Platelets (Bld) [#/Vol] 106 10*3/uL 150-450 [facility] Serum or plasma albumin francine urement (mass/volume)Ordered By: Dr. Hay on 09-01-2022 Albumin [Mass/Vol] 2.8 g/dL 3.2-5.0 [facility] Serum or plasma albumin/glob ulin mass ratioOrdered By: Dr. Hay on 09-01-2022 Albumin/Globulin [Mass ratio] 1.0 {ratio} 0.9-2.4 [facility] Serum or plasma calcium francine urement (mass/volume)Ordered By: Dr. Hay on 09-01-2022 Calcium [Mass/Vol] 8.0 mg/dL 8.5-10.1 [facility] Serum or plasma creatinine m easurement (mass/volume)Ordered By: Dr. Hay on 09-01-2022 Creatinine [Mass/Vol] 1.33 mg/dL 0.70-1.30 [facility] Comment on above: The validity of the calculated GFR & GFRAA in patients over 70 years has not been determined. Clinical correlation is essential. Serum or plasma urea nitroge n measurement (mass/volume)Ordered By: Dr. Hay on 09-01-2022 Urea nitrogen [Mass/Vol] 21 mg/dL 7-18 [facility] Thin prep Papanicolaou smear with manual screeningOrdered By: Dr. Hay on 09-01-2022 Thin prep Papanicolaou smear with manual screening 21 U/L 15-37 [facility] Thin prep Papanicolaou smear with manual screening 3 5-15 [facility] No Panel InformationOrdered By: Dr. Hay on 08-31-2022 Activated Clotting Time 275 sec 74-137 [facility] Basophil percentageOrdered B y: Dr. Hay on 08-19-2022 Chloride [Moles/Vol] 108 mmol/L 98-107 [facility] Glucose [Mass/Vol] 158 mg/dL 74-106 [facility] Comment on above: Fasting Glucose resu lt greater than or equal to 126 mg/dL suggests DIABETES MELLITUS per A.D.A. criteria. Potassium [Moles/Vol] 4.3 mmol/L 3.5-5.1 [facility] Sodium [Moles/Vol] 137 mmol/L 136-145 [facility] WBC (Bld) [#/Vol] 8.2 10*3/uL 4.4-11.0 [facility] Blood erythrocytes count (nu mber/volume)Ordered By: Dr. Hay on 08-19-2022 RBC (Bld) [#/Vol] 5.05 10*6/uL 4.6-6.2 [facility] Blood hemoglobin measurement (mass/volume)Ordered By: Dr. Hay on 08-19-2022 Hemoglobin (Bld) [Mass/Vol] 14.3 g/dL 13.0-16.5 [facility] Blood platelet mean volumeOr dered By: Dr. Hay on 08-19-2022 Platelet mean volume (Bld) [Entitic vol] 12.5 fL 6.2-12.0 [facility] Determination of erythrocyte mean corpuscular volume (MCV)Ordered By: Dr. Hay on 08-19-2022 MCV (RBC) [Entitic vol] 88.3 fL 80-94 [facility] Hematocrit Auto (Bld) [Volum e fraction]Ordered By: Dr. Hay on 08-19-2022 Hematocrit (Bld) [Volume fraction] 44.6 % 40-54 [facility] INR in Blood by Coagulation assayOrdered By: Dr. Hay on 08-19-2022 INR Coag (Bld) [Relative time] 1.1 {INR} [facility] - Chemistry and C hemistry - challengeOrdered By: Dr. Hay on 08-19-2022 CO2 [Moles/Vol] 25.0 mmol/L 21.0-32.0 [facility] Urea nitrogen/Creatinine [Mass ratio] 12.0 mg/mg 10-20 [facility] - CoagulationOrde red By: Dr. Hay on 08-19-2022 aPTT Coag (Bld) [Time] 30.9 s 24.1-36.2 [facility] PT Coag (PPP) [Time] 13.4 s 11.7-14.9 [facility] Laboratory - Hematology and Cell countsOrdered By: Dr. Hay on 08-19-2022 Erythrocyte distribution width (RBC) [Entitic vol] 44.8 fL 35.1-43.9 [facility] Erythrocyte distribution width (RBC) [Ratio] 13.9 % 11.6-14.6 [facility] MCH (RBC) [Entitic mass] 28.3 pg 27.0-32.0 [facility] MCHC Auto (RBC) [Mass/Vol]Or dered By: Dr. Hay on 08-19-2022 MCHC (RBC) [Mass/Vol] 32.1 g/dL 32-36 [facility] No Panel InformationOrdered By: Dr. Hay on 08-19-2022 Estimated GFR (MDRD) Amer 72 mL/min >60 [facility] Comment on above: GFR Calc Estimated GFR (MDRD) Non-Af Amer 60 mL/min >60 [facility] Comment on above: Non- GFR Calc Platelets bldOrdered By: Dr. Hay on 08-19-2022 Platelets (Bld) [#/Vol] 151 10*3/uL 150-450 [facility] Serum or plasma calcium francine urement (mass/volume)Ordered By: Dr. Hay on 08-19-2022 Calcium [Mass/Vol] 9.0 mg/dL 8.5-10.1 [facility] Serum or plasma creatinine m easurement (mass/volume)Ordered By: Dr. Hay on 08-19-2022 Creatinine [Mass/Vol] 1.25 mg/dL 0.70-1.30 [facility] [place] Comment on above: The validity of the calculated GFR & GFRAA in patients over 70 years has not been determined. Clinical correlation is essential. Serum or plasma urea nitroge n measurement (mass/volume)Ordered By: Dr. Hay on 08-19-2022 Urea nitrogen [Mass/Vol] 15 mg/dL 7-18 [facility] Thin prep Papanicolaou smear with manual screeningOrdered By: Dr. Hay on 08-19-2022 Thin prep Papanicolaou smear with manual screening 4 5-15 [facility] Basophil percentageOrdered B y: Dr. Rodriguez on 06-11-2022 Chloride [Moles/Vol] 102 mmol/L 98-107 [facility] Glucose [Mass/Vol] 274 mg/dL 74-106 [facility] Comment on above: Glucose result great er than or equal to 200 mg/dLsuggests DIABETES MELLITUS per A.D.A. criteria. Potassium [Moles/Vol] 4.3 mmol/L 3.5-5.1 [facility] [place] Sodium [Moles/Vol] 136 mmol/L 136-145 [facility] Laboratory - Chemistry and C hemistry - challengeOrdered By: Dr. Rodriguez on 06-11-2022 CO2 [Moles/Vol] 24.0 mmol/L 21.0-32.0 [facility] Magnesium [Mass/Vol] 2.2 mg/dL 1.6-2.6 [facility] Urea nitrogen/Creatinine [Mass ratio] 15.7 mg/mg 10-20 [facility] No Panel InformationOrdered By: Dr. Rodriguez on 06-11-2022 Estimated GFR (MDRD) Amer 67 mL/min >60 [facility] Comment on above: GFR Calc Estimated GFR (MDRD) Non-Af Amer 55 mL/min >60 [facility] Comment on above: Non- GFR Calc Serum or plasma calcium francine urement (mass/volume)Ordered By: Dr. Rodriguez on 06-11-2022 Calcium [Mass/Vol] 8.7 mg/dL 8.5-10.1 [facility] Serum or plasma creatinine m easurement (mass/volume)Ordered By: Dr. Rodriguez on 06-11-2022 Creatinine [Mass/Vol] 1.34 mg/dL 0.70-1.30 [facility] [place] Comment on above: The validity of the calculated GFR & GFRAA in patients over 70 years has not been determined. Clinical correlation is essential. Serum or plasma urea nitroge n measurement (mass/volume)Ordered By: Dr. Rodriguez on 06-11-2022 Urea nitrogen [Mass/Vol] 21 mg/dL 7-18 [facility] Thin prep Papanicolaou smear with manual screeningOrdered By: Dr. Rodriguez on 06-11-2022 Thin prep Papanicolaou smear with manual screening 10 5-15 [facility] Absolute lymphocyte countOrd ered By: Luz Elena Mckeon on 04-14-2022 Lymphocytes Auto (Unsp spec) [#/Vol] 1.60 10*3/uL 0.83-4.51 [facility] Basophil percentageOrdered B y: Luz Elena Mckeon on 04-14-2022 Basophils/100 WBC (Bld) 0.3 % 0-1 [facility] Chloride [Moles/Vol] 106 mmol/L 98-107 [facility] Eosinophils/100 WBC (Bld) 1.5 % 0-5 [facility] Glucose [Mass/Vol] 211 mg/dL 74-106 [facility] Comment on above: Glucose result great er than or equal to 200 mg/dLsuggests DIABETES MELLITUS per A.D.A. criteria. Neutrophils (Bld) [#/Vol] 3.8 10*3/uL 2.0-7.7 [facility] Neutrophils/100 WBC (Bld) 61.3 % 47-70 [facility] Potassium [Moles/Vol] 4.4 mmol/L 3.5-5.1 [facility] [place] Sodium [Moles/Vol] 136 mmol/L 136-145 [facility] WBC (Bld) [#/Vol] 6.2 10*3/uL 4.4-11.0 [facility] Blood erythrocytes count (nu mber/volume)Ordered By: Luz Elena Mckeon on 04-14-2022 RBC (Bld) [#/Vol] 4.87 10*6/uL 4.6-6.2 [facility] Blood hemoglobin measurement (mass/volume)Ordered By: Luz Elena Mckeon on 04-14-2022 Hemoglobin (Bld) [Mass/Vol] 14.1 g/dL 13.0-16.5 [facility] Blood lymphocytes/100 leukoc ytesOrdered By: Luz Elena Mckeon on 04-14-2022 Lymphocytes/100 WBC (Bld) 25.8 % 19-41 [facility] Blood monocytes/100 leukocyt esOrdered By: Luz Elena Mckeon on 04-14-2022 Monocytes/100 WBC (Bld) 10.8 % 0-10 [facility] Blood platelet mean volumeOr dered By: Luz Elena Mckeon on 04-14-2022 Platelet mean volume (Bld) [Entitic vol] 12.8 fL 6.2-12.0 [facility] Determination of erythrocyte mean corpuscular volume (MCV)Ordered By: Luz Elena Mckeon on 04-14-2022 MCV (RBC) [Entitic vol] 88.1 fL 80-94 [facility] Hematocrit Auto (Bld) [Volum e fraction]Ordered By: Luz Elena Mckeon on 04-14-2022 Hematocrit (Bld) [Volume fraction] 42.9 % 40-54 [facility] Laboratory - Chemistry and C hemistry - challengeOrdered By: Luz Elena Mckeon on 04-14-2022 CO2 [Moles/Vol] 25.0 mmol/L 21.0-32.0 [facility] Natriuretic peptide B (Bld) [Mass/Vol] 54.2 pg/mL 0-100 [facility] Urea nitrogen/Creatinine [Mass ratio] 13.3 mg/mg 10-20 [facility] Laboratory - Hematology and Cell countsOrdered By: Luz Elena Mckeon on 04-14-2022 Erythrocyte distribution width (RBC) [Entitic vol] 44.7 fL 35.1-43.9 [facility] Erythrocyte distribution width (RBC) [Ratio] 13.9 % 11.6-14.6 [facility] Immature granulocytes/100 WBC (Bld) 0.300 % 0.0-0.9 [facility] Comment on above: IG% - Immature Granu locytes (promyelocytes, myelocytes and metamyelocytes) > 1% indicates that a LEFT SHIFT is Present. MCH (RBC) [Entitic mass] 29.0 pg 27.0-32.0 [facility] Nucleated RBC/100 WBC (Bld) [Ratio] 0 % 0-5 [facility] MCHC Auto (RBC) [Mass/Vol]Or dered By: Luz Elena Mckeon on 04-14-2022 MCHC (RBC) [Mass/Vol] 32.9 g/dL 32-36 [facility] [place] No Panel InformationOrdered By: Luz Elena Mckeon on 04-14-2022 Estimated GFR (MDRD) Amer 81 mL/min >60 [facility] Comment on above: GFR Calc Estimated GFR (MDRD) Non-Af Amer 67 mL/min >60 [facility] Comment on above: Non- GFR Calc Platelets bldOrdered By: Loco Mckeon on 04-14-2022 Platelets (Bld) [#/Vol] 150 10*3/uL 150-450 [facility] Serum or plasma calcium francine urement (mass/volume)Ordered By: Luz Elena Mckeon on 04-14-2022 Calcium [Mass/Vol] 8.4 mg/dL 8.5-10.1 [facility] Serum or plasma creatinine m easurement (mass/volume)Ordered By: Luz Elena Mckeon on 04-14-2022 Creatinine [Mass/Vol] 1.13 mg/dL 0.70-1.30 [facility] [place] Comment on above: The validity of the calculated GFR & GFRAA in patients over 70 years has not been determined. Clinical correlation is essential. Serum or plasma urea nitroge n measurement (mass/volume)Ordered By: Luz Elena Mckeon on 04-14-2022 Urea nitrogen [Mass/Vol] 15 mg/dL 7-18 [facility] Thin prep Papanicolaou smear with manual screeningOrdered By: Luz Elena Mckeon on 04-14-2022 Thin prep Papanicolaou smear with manual screening 5 5-15 [facility] Laboratory - Microbiology an d Antimicrobial susceptibilityon 03-27-2022 SARS-CoV-2 (COVID-19) RNA REAGAN+probe Ql (Unsp spec) Detected [facility] No Panel Informationon 03-27 Influenza Types A,B Rapid (Clinic) Not detected [facility] Absolute lymphocyte counton 11-21-2021 Lymphocytes Auto (Unsp spec) [#/Vol] 1.23 10*3/uL 0.83-4.51 [facility] Work Phone: Basophil percentageon 2021 Basophils/100 WBC (Bld) 0.3 % 0-1 [facility] Work Phone: Chloride [Moles/Vol] 106 mmol/L 98-107 [facility] Work Phone: Eosinophils/100 WBC (Bld) 1.2 % 0-5 [facility] Work Phone: Glucose [Mass/Vol] 166 mg/dL 74-106 [facility] Work Phone: Comment on above: Fasting Glucose resu lt greater than or equal to 126 mg/dL suggests DIABETES MELLITUS per A.D.A. criteria. Neutrophils (Bld) [#/Vol] 4.7 10*3/uL 2.0-7.7 [facility] Work Phone: Neutrophils/100 WBC (Bld) 69.8 % 47-70 [facility] Work Phone: Potassium [Moles/Vol] 4.2 mmol/L 3.5-5.1 [facility] [place] Work Phone: Sodium [Moles/Vol] 140 mmol/L 136-145 [facility] Work Phone: WBC (Bld) [#/Vol] 6.7 10*3/uL 4.4-11.0 [facility]: Blood erythrocytes count (nu mber/volume)on 11-21-2021 RBC (Bld) [#/Vol] 5.06 10*6/uL 4.6-6.2 [facility]: Blood hemoglobin measurement (mass/volume)on 11-21-2021 Hemoglobin (Bld) [Mass/Vol] 14.3 g/dL 13.0-16.5 [facility] Work Phone: Blood lymphocytes/100 leukoc yteson 11-21-2021 Lymphocytes/100 WBC (Bld) 18.4 % 19-41 [facility] Work Phone: Blood monocytes/100 leukocyt eson 11-21-2021 Monocytes/100 WBC (Bld) 9.9 % 0-10 [facility] Work Phone: Blood platelet mean volumeon 11-21-2021 Platelet mean volume (Bld) [Entitic vol] 12.4 fL 6.2-12.0 [facility] Work Phone: Determination of erythrocyte mean corpuscular volume (MCV)on 11-21-2021 MCV (RBC) [Entitic vol] 89.1 fL 80-94 [facility] Work Phone: Hematocrit Auto (Bld) [Volum e fraction]on 11-21-2021 Hematocrit (Bld) [Volume fraction] 45.1 % 40-54 [facility] Work Phone: [phone] Laboratory - Chemistry and C hemistry - challengeon 11-21-2021 CO2 [Moles/Vol] 27.0 mmol/L 21.0-32.0 [facility] Work Phone: Natriuretic peptide B (Bld) [Mass/Vol] 60.9 pg/mL 0-100 [facility] Work Phone: Urea nitrogen/Creatinine [Mass ratio] 12.9 mg/mg 10-20 [facility] Work Phone: Laboratory - Hematology and Cell countson 11-21-2021 Erythrocyte distribution width (RBC) [Entitic vol] 45.1 fL 35.1-43.9 [facility] Work Phone: Erythrocyte distribution width (RBC) [Ratio] 14.0 % 11.6-14.6 [facility] Work Phone: Immature granulocytes/100 WBC (Bld) 0.400 % 0.0-0.9 [facility] Work Phone: Comment on above: IG% - Immature Granu locytes (promyelocytes, myelocytes and metamyelocytes) > 1% indicates that a LEFT SHIFT is Present. MCH (RBC) [Entitic mass] 28.3 pg 27.0-32.0 [facility] Work Phone: Nucleated RBC/100 WBC (Bld) [Ratio] 0 % 0-5 [facility] Work Phone: MCHC Auto (RBC) [Mass/Vol]on 11-21-2021 MCHC (RBC) [Mass/Vol] 31.7 g/dL 32-36 [facility] [place] Work Phone: No Panel Informationon 11-21 Estimated GFR (MDRD) Amer 63 mL/min >60 [facility] Work Phone: Comment on above: GFR Calc Estimated GFR (MDRD) Non-Af Amer 52 mL/min >60 [facility] Work Phone: Comment on above: Non- GFR Calc Platelets bldon 11-21-2021 Platelets (Bld) [#/Vol] 135 10*3/uL 150-450 [facility] Work Phone: Serum or plasma calcium francine urement (mass/volume)on 11-21-2021 Calcium [Mass/Vol] 8.9 mg/dL 8.5-10.1 [facility] Work Phone: Serum or plasma creatinine m easurement (mass/volume)on 11-21-2021 Creatinine [Mass/Vol] 1.40 mg/dL 0.70-1.30 [facility] [place] Work Phone: Comment on above: The validity of the calculated GFR & GFRAA in patients over 70 years has not been determined. Clinical correlation is essential. Serum or plasma urea nitroge n measurement (mass/volume)on 11-21-2021 Urea nitrogen [Mass/Vol] 18 mg/dL 7-18 [facility] Work Phone: Thin prep Papanicolaou smear with manual screeningon 11-21-2021 Thin prep Papanicolaou smear with manual screening 7 5-15 [facility] Work Phone: Absolute lymphocyte counton 11-16-2021 Lymphocytes Auto (Unsp spec) [#/Vol] 2.06 10*3/uL 0.83-4.51 [facility] Work Phone: Basophil percentageon 2021 Basophils/100 WBC (Bld) 0.3 % 0-1 [facility] Work Phone: Chloride [Moles/Vol] 104 mmol/L 98-107 [facility] Work Phone: Eosinophils/100 WBC (Bld) 1.4 % 0-5 [facility] Work Phone: [phone] Glucose [Mass/Vol] 170 mg/dL 74-106 [facility] Work Phone: Comment on above: Fasting Glucose resu lt greater than or equal to 126 mg/dL suggests DIABETES MELLITUS per A.D.A. criteria. Neutrophils (Bld) [#/Vol] 5.0 10*3/uL 2.0-7.7 [facility] Work Phone: Neutrophils/100 WBC (Bld) 62.3 % 47-70 [facility] Work Phone: Potassium [Moles/Vol] 4.4 mmol/L 3.5-5.1 [facility] [place] Work Phone: Comment on above: Slight Hemolysis, Re sult may be falsely increased. Sodium [Moles/Vol] 137 mmol/L 136-145 [facility] Work Phone: WBC (Bld) [#/Vol] 7.9 10*3/uL 4.4-11.0 [facility] Work Phone: Blood erythrocytes count (nu mber/volume)on 11-16-2021 RBC (Bld) [#/Vol] 5.42 10*6/uL 4.6-6.2 [facility] Work Phone: Blood hemoglobin measurement (mass/volume)on 11-16-2021 Hemoglobin (Bld) [Mass/Vol] 15.6 g/dL 13.0-16.5 [facility] Work Phone: [phone] Blood lymphocytes/100 leukoc yteson 11-16-2021 Lymphocytes/100 WBC (Bld) 26.0 % 19-41 [facility] Work Phone: Blood monocytes/100 leukocyt eson 11-16-2021 Monocytes/100 WBC (Bld) 9.6 % 0-10 [facility] Work Phone: Blood platelet mean volumeon 11-16-2021 Platelet mean volume (Bld) [Entitic vol] 12.9 fL 6.2-12.0 [facility] Work Phone: Determination of erythrocyte mean corpuscular volume (MCV)on 11-16-2021 MCV (RBC) [Entitic vol] 89.3 fL 80-94 [facility] Work Phone: Hematocrit Auto (Bld) [Volum e fraction]on 11-16-2021 Hematocrit (Bld) [Volume fraction] 48.4 % 40-54 [facility] Work Phone: Laboratory - Chemistry and C hemistry - challengeon 11-16-2021 CO2 [Moles/Vol] 27.0 mmol/L 21.0-32.0 [facility] Work Phone: Urea nitrogen/Creatinine [Mass ratio] 11.6 mg/mg 10-20 [facility] Work Phone: Laboratory - Hematology and Cell countson 11-16-2021 Erythrocyte distribution width (RBC) [Entitic vol] 44.5 fL 35.1-43.9 [facility] Work Phone: Erythrocyte distribution width (RBC) [Ratio] 13.8 % 11.6-14.6 [facility] Work Phone: Immature granulocytes/100 WBC (Bld) 0.400 % 0.0-0.9 [facility] Work Phone: Comment on above: IG% - Immature Granu locytes (promyelocytes, myelocytes and metamyelocytes) > 1% indicates that a LEFT SHIFT is Present. MCH (RBC) [Entitic mass] 28.8 pg 27.0-32.0 [facility] Work Phone: Nucleated RBC/100 WBC (Bld) [Ratio] 0 % 0-5 [facility] Work Phone: MCHC Auto (RBC) [Mass/Vol]on 11-16-2021 MCHC (RBC) [Mass/Vol] 32.2 g/dL 32-36 [facility] [place] Work Phone: No Panel Informationon 11-16 Troponin I High Sensitivity 7 pg/mL 3.0-78.0 [facility] Work Phone: Comment on above: Please Note: New [place] t Units and Gender Specific Reference Ranges. For more information see Policy Stat Procedure [place] High Sensitivity Troponin (TNIH) and attachments. Estimated Creatinine Clearance Calc 45.54 ml/min [facility] Work Phone: Estimated GFR (MDRD) Amer 64 mL/min >60 [facility] Work Phone: Comment on above: GFR Calc Estimated GFR (MDRD) Non-Af Amer 53 mL/min >60 [facility] Work Phone: Comment on above: Non- GFR Calc Platelets bldon 11-16-2021 Platelets (Bld) [#/Vol] 142 10*3/uL 150-450 [facility] Work Phone: Serum or plasma calcium francine urement (mass/volume)on 11-16-2021 Calcium [Mass/Vol] 9.2 mg/dL 8.5-10.1 [facility] Work Phone: Serum or plasma creatinine m easurement (mass/volume)on 11-16-2021 Creatinine [Mass/Vol] 1.38 mg/dL 0.70-1.30 [facility] [place] Work Phone: Comment on above: The validity of the calculated GFR & GFRAA in patients over 70 years has not been determined. Clinical correlation is essential. Serum or plasma urea nitroge n measurement (mass/volume)on 11-16-2021 Urea nitrogen [Mass/Vol] 16 mg/dL 7-18 [facility] Work Phone: Thin prep Papanicolaou smear with manual screeningon 11-16-2021 Thin prep Papanicolaou smear with manual screening 6 5-15 [facility] Work Phone: Basophil percentageon 2021 Chloride [Moles/Vol] 105 mmol/L 98-107 [facility] Work Phone: Glucose [Mass/Vol] 246 mg/dL 74-106 [facility] Work Phone: Comment on above: Glucose result great er than or equal to 200 mg/dLsuggests DIABETES MELLITUS per A.D.A. criteria. Potassium [Moles/Vol] 4.2 mmol/L 3.5-5.1 [facility] [place] Work Phone: Sodium [Moles/Vol] 137 mmol/L 136-145 [facility] Work Phone: Laboratory - Chemistry and C hemistry - challengeon 10-28-2021 CO2 [Moles/Vol] 24.0 mmol/L 21.0-32.0 [facility] Work Phone: Urea nitrogen/Creatinine [Mass ratio] 15.6 mg/mg 10-20 [facility] Work Phone: No Panel Informationon 10-28 Estimated GFR (MDRD) Amer 74 mL/min >60 [facility] Work Phone: Comment on above: GFR Calc Estimated GFR (MDRD) Non-Af Amer 61 mL/min >60 [facility] Work Phone: Comment on above: Non- GFR Calc Serum or plasma calcium francine urement (mass/volume)on 10-28-2021 Calcium [Mass/Vol] 8.9 mg/dL 8.5-10.1 [facility] Work Phone: Serum or plasma creatinine m easurement (mass/volume)on 10-28-2021 Creatinine [Mass/Vol] 1.22 mg/dL 0.70-1.30 [facility] [place] Work Phone: Comment on above: The validity of the calculated GFR & GFRAA in patients over 70 years has not been determined. Clinical correlation is essential. Serum or plasma urea nitroge n measurement (mass/volume)on 10-28-2021 Urea nitrogen [Mass/Vol] 19 mg/dL 7-18 [facility] Work Phone: Thin prep Papanicolaou smear with manual screeningon 10-28-2021 Thin prep Papanicolaou smear with manual screening 8 5-15 [facility] Work Phone: Whole blood hemoglobin A1c/t otal hemoglobin ratio (mass fraction)on 10-28-2021 HbA1c (Bld) [Mass fraction] 7.7 % 3.8-5.6 [facility] Work Phone: Comment on above: Normal < 5.7 % Predi abetic 5.7 - 6.4 % Diabetic >or= 6.5 % Please note range changes. Absolute lymphocyte counton 09-16-2021 Lymphocytes Auto (Unsp spec) [#/Vol] 1.24 10*3/uL 0.83-4.51 [facility] Work Phone: Basophil percentageon 2021 Basophils/100 WBC (Bld) 0.5 % 0-1 [facility] Work Phone: Chloride [Moles/Vol] 107 mmol/L 98-107 [facility] Work Phone: Eosinophils/100 WBC (Bld) 1.7 % 0-5 [facility] Work Phone: Glucose [Mass/Vol] 134 mg/dL 74-106 [facility] Work Phone: Comment on above: Fasting Glucose resu lt greater than or equal to 126 mg/dL suggests DIABETES MELLITUS per A.D.A. criteria. Neutrophils (Bld) [#/Vol] 4.4 10*3/uL 2.0-7.7 [facility] Work Phone: Neutrophils/100 WBC (Bld) 68.0 % 47-70 [facility] Work Phone: Potassium [Moles/Vol] 4.3 mmol/L 3.5-5.1 [facility] [place] Work Phone: Sodium [Moles/Vol] 139 mmol/L 136-145 [facility] Work Phone: [phone] WBC (Bld) [#/Vol] 6.4 10*3/uL 4.4-11.0 [facility] Work Phone: Blood erythrocytes count (nu mber/volume)on 09-16-2021 RBC (Bld) [#/Vol] 4.84 10*6/uL 4.6-6.2 [facility] Work Phone: Blood hemoglobin measurement (mass/volume)on 09-16-2021 Hemoglobin (Bld) [Mass/Vol] 14.1 g/dL 13.0-16.5 [facility] Work Phone: Blood lymphocytes/100 leukoc yteson 09-16-2021 Lymphocytes/100 WBC (Bld) 19.3 % 19-41 [facility] Work Phone: Blood monocytes/100 leukocyt eson 09-16-2021 Monocytes/100 WBC (Bld) 10.0 % 0-10 [facility] Work Phone: Blood platelet mean volumeon 09-16-2021 Platelet mean volume (Bld) [Entitic vol] 12.7 fL 6.2-12.0 [facility] Work Phone: [phone] Determination of erythrocyte mean corpuscular volume (MCV)on 09-16-2021 MCV (RBC) [Entitic vol] 90.1 fL 80-94 [facility] Work Phone: Hematocrit Auto (Bld) [Volum e fraction]on 09-16-2021 Hematocrit (Bld) [Volume fraction] 43.6 % 40-54 [facility] Work Phone: Laboratory - Chemistry and C hemistry - challengeon 09-16-2021 CO2 [Moles/Vol] 27.0 mmol/L 21.0-32.0 [facility] Work Phone: Natriuretic peptide B (Bld) [Mass/Vol] 80.9 pg/mL 0-100 [facility] Work Phone: Urea nitrogen/Creatinine [Mass ratio] 13.7 mg/mg 10-20 [facility] Work Phone: Laboratory - Hematology and Cell countson 09-16-2021 Erythrocyte distribution width (RBC) [Entitic vol] 46.2 fL 35.1-43.9 [facility] Work Phone: Erythrocyte distribution width (RBC) [Ratio] 13.9 % 11.6-14.6 [facility] Work Phone: Immature granulocytes/100 WBC (Bld) 0.500 % 0.0-0.9 [facility] Work Phone: Comment on above: IG% - Immature Granu locytes (promyelocytes, myelocytes and metamyelocytes) > 1% indicates that a LEFT SHIFT is Present. MCH (RBC) [Entitic mass] 29.1 pg 27.0-32.0 [facility] Work Phone: Nucleated RBC/100 WBC (Bld) [Ratio] 0 % 0-5 [facility] Work Phone: MCHC Auto (RBC) [Mass/Vol]on 09-16-2021 MCHC (RBC) [Mass/Vol] 32.3 g/dL 32-36 [facility] Work [facility]: No Panel Informationon 09-16 Estimated GFR (MDRD) Amer 73 mL/min >60 [facility] Work Phone: Comment on above: GFR Calc Estimated GFR (MDRD) Non-Af Amer 60 mL/min >60 [facility] Work Phone: Comment on above: Non- GFR Calc Platelets bldon 09-16-2021 Platelets (Bld) [#/Vol] 133 10*3/uL 150-450 [facility] Work Phone: Serum or plasma calcium francine urement (mass/volume)on 09-16-2021 Calcium [Mass/Vol] 9.0 mg/dL 8.5-10.1 [facility] Work Phone: Serum or plasma creatinine m easurement (mass/volume)on 09-16-2021 Creatinine [Mass/Vol] 1.24 mg/dL 0.70-1.30 [facility] [place] Work Phone: Comment on above: The validity of the calculated GFR & GFRAA in patients over 70 years has not been determined. Clinical correlation is essential. Serum or plasma urea nitroge n measurement (mass/volume)on 09-16-2021 Urea nitrogen [Mass/Vol] 17 mg/dL 7-18 [facility] Work Phone: Thin prep Papanicolaou smear with manual screeningon 09-16-2021 Thin prep Papanicolaou smear with manual screening 5 5-15 [facility] Work Phone: Absolute lymphocyte counton 06-10-2021 Lymphocytes Auto (Unsp spec) [#/Vol] 1.00 10*3/uL 0.83-4.51 [facility] Work Phone: Basophil percentageon 2021 Basophils/100 WBC (Bld) 0.3 % 0-1 [facility] Work Phone: Chloride [Moles/Vol] 107 mmol/L 98-107 [facility] Work Phone: Eosinophils/100 WBC (Bld) 1.7 % 0-5 [facility] Work Phone: Glucose [Mass/Vol] 150 mg/dL 74-106 [facility] Work Phone: Comment on above: Fasting Glucose resu lt greater than or equal to 126 mg/dL suggests DIABETES MELLITUS per A.D.A. criteria. Neutrophils (Bld) [#/Vol] 4.9 10*3/uL 2.0-7.7 [facility] Work Phone: Neutrophils/100 WBC (Bld) 73.8 % 47-70 [facility] Work Phone: Potassium [Moles/Vol] 5.6 mmol/L 3.5-5.1 [facility] [place] Work Phone: Comment on above: Moderate Hemolysis, Result may be falsely increased. Sodium [Moles/Vol] 139 mmol/L 136-145 [facility] Work Phone: WBC (Bld) [#/Vol] 6.7 10*3/uL 4.4-11.0 [facility] Work Phone: Blood erythrocytes count (nu mber/volume)on 06-10-2021 RBC (Bld) [#/Vol] 5.17 10*6/uL 4.6-6.2 [facility] Work Phone: Blood hemoglobin measurement (mass/volume)on 06-10-2021 Hemoglobin (Bld) [Mass/Vol] 15.5 g/dL 13.0-16.5 [facility] Work Phone: [phone] Blood lymphocytes/100 leukoc yteson 06-10-2021 Lymphocytes/100 WBC (Bld) 15.0 % 19-41 [facility] Work Phone: Blood monocytes/100 leukocyt eson 06-10-2021 Monocytes/100 WBC (Bld) 8.7 % 0-10 [facility] Work Phone: Blood platelet mean volumeon 06-10-2021 Platelet mean volume (Bld) [Entitic vol] 12.7 fL 6.2-12.0 [facility] Work Phone: Determination of erythrocyte mean corpuscular volume (MCV)on 06-10-2021 MCV (RBC) [Entitic vol] 89.6 fL 80-94 [facility] Work Phone: Hematocrit Auto (Bld) [Volum e fraction]on 06-10-2021 Hematocrit (Bld) [Volume fraction] 46.3 % 40-54 [facility] Work Phone: Laboratory - Chemistry and C hemistry - challengeon 06-10-2021 CO2 [Moles/Vol] 28.0 mmol/L 21.0-32.0 [facility] Work Phone: Urea nitrogen/Creatinine [Mass ratio] 12.7 mg/mg 10-20 [facility] Work Phone: Laboratory - Hematology and Cell countson 06-10-2021 Erythrocyte distribution width (RBC) [Entitic vol] 45.9 fL 35.1-43.9 [facility] Work Phone: Erythrocyte distribution width (RBC) [Ratio] 14.1 % 11.6-14.6 [facility] Work Phone: Immature granulocytes/100 WBC (Bld) 0.500 % 0.0-0.9 [facility] Work Phone: Comment on above: IG% - Immature Granu locytes (promyelocytes, myelocytes and metamyelocytes) > 1% indicates that a LEFT SHIFT is Present. MCH (RBC) [Entitic mass] 30.0 pg 27.0-32.0 [facility] Work Phone: Nucleated RBC/100 WBC (Bld) [Ratio] 0 % 0-5 [facility] Work Phone: MCHC Auto (RBC) [Mass/Vol]on 06-10-2021 MCHC (RBC) [Mass/Vol] 33.5 g/dL 32-36 [facility] Work Phone: No Panel Informationon 06-10 Troponin I High Sensitivity 10 pg/mL 3.0-78.0 [facility] Work Phone: Comment on above: Please Note: New Jana t Units and Gender Specific Reference Ranges. For more information see Policy Stat Procedure [place] High Sensitivity Troponin (TNIH) and attachments. Estimated Creatinine Clearance Calc 47.63 ml/min [facility] Work Phone: Estimated GFR (MDRD) Amer 67 mL/min >60 [facility] Work Phone: Comment on above: GFR Calc Estimated GFR (MDRD) Non-Af Amer 55 mL/min >60 [facility] Work Phone: Comment on above: Non- GFR Calc Platelets bldon 06-10-2021 Platelets (Bld) [#/Vol] 146 10*3/uL 150-450 [facility] Work Phone: Serum or plasma calcium francine urement (mass/volume)on 06-10-2021 Calcium [Mass/Vol] 8.7 mg/dL 8.5-10.1 [facility] Work Phone: Serum or plasma creatinine m easurement (mass/volume)on 06-10-2021 Creatinine [Mass/Vol] 1.34 mg/dL 0.70-1.30 [facility] Work Phone: Comment on above: The validity of the calculated GFR & GFRAA in patients over 70 years has not been determined. Clinical correlation is essential. Serum or plasma urea nitroge n measurement (mass/volume)on 06-10-2021 Urea nitrogen [Mass/Vol] 17 mg/dL 7-18 [facility] Work Phone: Thin prep Papanicolaou smear with manual screeningon 06-10-2021 Thin prep Papanicolaou smear with manual screening 4 5-15 [facility] Work Phone: Absolute lymphocyte counton 05-19-2021 Lymphocytes Auto (Unsp spec) [#/Vol] 1.72 10*3/uL 0.83-4.51 [facility] Work Phone: Basophil percentageon 2021 Basophils/100 WBC (Bld) 0.4 % 0-1 [facility] Work Phone: Bilirubin [Mass/Vol] 1.20 mg/dL 0.20-1.00 [facility] Work Phone: Comment on above: For patients on eltr ombopag therapy, use of Dimension [place] TBIL is not recommended. Chloride [Moles/Vol] 106 mmol/L 98-107 [facility] Work Phone: Eosinophils/100 WBC (Bld) 1.2 % 0-5 [facility] Work Phone: [phone] Glucose [Mass/Vol] 182 mg/dL 74-106 [facility] Work Phone: Comment on above: Fasting Glucose resu lt greater than or equal to 126 mg/dL suggests DIABETES MELLITUS per A.D.A. criteria. Neutrophils (Bld) [#/Vol] 6.6 10*3/uL 2.0-7.7 [facility] Work Phone: Neutrophils/100 WBC (Bld) 70.5 % 47-70 [facility] Work Phone: Potassium [Moles/Vol] 3.8 mmol/L 3.5-5.1 [facility] Work Phone: Protein [Mass/Vol] 7.9 g/dL 6.4-8.2 [facility] Work Phone: Sodium [Moles/Vol] 139 mmol/L 136-145 [facility] Work Phone: [phone] WBC (Bld) [#/Vol] 9.4 10*3/uL 4.4-11.0 [facility] Work Phone: Basophil percentage 0 SEEN /hpf [facility] Work Phone: Bilirubin Test strip Ql (U)o n 05-19-2021 Bilirubin Ql (U) Negative Negative [facility] Work Phone: Blood erythrocytes count (nu mber/volume)on 05-19-2021 RBC (Bld) [#/Vol] 5.30 10*6/uL 4.6-6.2 [facility] Work Phone: Blood hemoglobin measurement (mass/volume)on 05-19-2021 Hemoglobin (Bld) [Mass/Vol] 15.3 g/dL 13.0-16.5 [facility] Work Phone: Blood lymphocytes/100 leukoc yteson 05-19-2021 Lymphocytes/100 WBC (Bld) 18.3 % 19-41 [facility] Work Phone: Blood monocytes/100 leukocyt eson 05-19-2021 Monocytes/100 WBC (Bld) 9.3 % 0-10 [facility] Work Phone: Blood platelet mean volumeon 05-19-2021 Platelet mean volume (Bld) [Entitic vol] 12.5 fL 6.2-12.0 [facility] Work Phone: Determination of erythrocyte mean corpuscular volume (MCV)on 05-19-2021 MCV (RBC) [Entitic vol] 89.8 fL 80-94 [facility] Work Phone: Hematocrit Auto (Bld) [Volum e fraction]on 05-19-2021 Hematocrit (Bld) [Volume fraction] 47.6 % 40-54 [facility] Work Phone: Ketones Test strip Ql (U)on 05-19-2021 Ketones Ql (U) Negative Negative [facility] Work Phone: Laboratory - Chemistry and C hemistry - challengeon 05-19-2021 ALP [Catalytic activity/Vol] 156 U/L 45-117 [facility] Work Phone: ALT [Catalytic activity/Vol] 44 U/L 16-61 [facility] Work Phone: CO2 [Moles/Vol] 26.0 mmol/L 21.0-32.0 [facility] Work Phone: Globulin (S) [Mass/Vol] 4.2 g/dL 2.2-4.2 [facility] Work Phone: Lipase [Catalytic activity/Vol] 199 U/L 73-393 [facility] Work Phone: Urea nitrogen/Creatinine [Mass ratio] 13.8 mg/mg 10-20 [facility] Work Phone: Laboratory - Hematology and Cell countson 05-19-2021 Erythrocyte distribution width (RBC) [Entitic vol] 46.7 fL 35.1-43.9 [facility] Work Phone: Erythrocyte distribution width (RBC) [Ratio] 14.3 % 11.6-14.6 [facility] Work Phone: Immature granulocytes/100 WBC (Bld) 0.300 % 0.0-0.9 [facility] Work Phone: Comment on above: IG% - Immature Granu locytes (promyelocytes, myelocytes and metamyelocytes) > 1% indicates that a LEFT SHIFT is Present. MCH (RBC) [Entitic mass] 28.9 pg 27.0-32.0 [facility] Work Phone: Nucleated RBC/100 WBC (Bld) [Ratio] 0 % 0-5 [facility] Work Phone: MCHC Auto (RBC) [Mass/Vol]on 05-19-2021 MCHC (RBC) [Mass/Vol] 32.1 g/dL 32-36 [facility] Work Phone: Mucus LM Ql (Urine sed)on Mucus Ql (Urine sed) 0 SEEN /hpf [facility] Work Phone: Nitrite Test strip Ql (U)on 05-19-2021 Nitrite Ql (U) Negative Negative [facility] Work Phone: No Panel Informationon 05-19 Estimated Creatinine Clearance Calc 46.25 ml/min [facility] Work Phone: Estimated GFR (MDRD) Amer 65 mL/min >60 [facility] Work Phone: Comment on above: GFR Calc Estimated GFR (MDRD) Non-Af Amer 53 mL/min >60 [facility] Work Phone: Comment on above: Non- GFR Calc Platelets bldon 05-19-2021 Platelets (Bld) [#/Vol] 158 10*3/uL 150-450 [facility] Work Phone: Protein Test strip Ql (U)on 05-19-2021 Protein Ql (U) Negative Negative [facility] Work Phone: Serum or plasma albumin francine urement (mass/volume)on 05-19-2021 Albumin [Mass/Vol] 3.7 g/dL 3.2-5.0 [facility] Work Phone: Serum or plasma albumin/glob ulin mass ratioon 05-19-2021 Albumin/Globulin [Mass ratio] 0.9 {ratio} 0.9-2.4 [facility] Work Phone: Serum or plasma calcium francine urement (mass/volume)on 05-19-2021 Calcium [Mass/Vol] 9.2 mg/dL 8.5-10.1 [facility] Work Phone: Serum or plasma creatinine m easurement (mass/volume)on 05-19-2021 Creatinine [Mass/Vol] 1.38 mg/dL 0.70-1.30 [facility] Work Phone: Comment on above: The validity of the calculated GFR & GFRAA in patients over 70 years has not been determined. Clinical correlation is essential. Serum or plasma urea nitroge n measurement (mass/volume)on 05-19-2021 Urea nitrogen [Mass/Vol] 19 mg/dL 7-18 [facility] Work Phone: Squamous epithelial cells de tection in urine sediment by light microscopyon 05-19-2021 Epithelial cells.squamous LM Ql (Urine sed) 0 SEEN /hpf [facility] Work Phone: Thin prep Papanicolaou smear with manual screeningon 05-19-2021 Thin prep Papanicolaou smear with manual screening 25 U/L 15-37 [facility] Work Phone: Thin prep Papanicolaou smear with manual screening 7 5-15 [facility] Work Phone: Urine blood detectionon 05-03 RBC Ql (U) Negative Negative [facility] Work Phone: RBC Ql (U) 0 SEEN /hpf [facility] Work Phone: Urine clarityon 05-19-2021 Clarity (U) Clear Clear [facility] Work Phone: Urine color determinationon 05-19-2021 Color (U) Straw Yellow [facility] Work Phone: Urine glucose detectionon Glucose Ql (U) Normal mg/dl Normal [facility] Work Phone: Urine leukocyte esterase det ection by dipstickon 05-19-2021 Leukocyte esterase Test strip Ql (U) Negative Negative [facility] Work Phone: Urine pHon 05-19-2021 pH (U) 5.0 [pH] [facility] Work Phone: Urine sediment bacteria coun t by microscopy (number/high power field)on 05-19-2021 Bacteria LM.HPF (Urine sed) [#/Area] 0 /[HPF] None Seen [facility] Work Phone: Urine specific gravity measu rementon 05-19-2021 Specific gravity (U) [Rel density] 1.010 [facility] Work Phone: Urobilinogen Auto test strip Ql (U)on 05-19-2021 Urobilinogen Ql (U) Normal mg/dl Normal [facility] Work Phone: CT ANGIOGRAM AORTA CHEST ABD [...] descending thoracic aorta is tortuous within its bgh-by-pvrxji course but is not aneurysmal. The abdominal [...] particularly at L4-L5 and L5-S1. IMAGING FACILITY: [facility]. 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 Physician: PROCEDURE(S) [...] right femoral artery - 6F. 10 cm [place] Catheters were advanced using standard guide wire [...] Equipment: Sheath(s) [employer] 4F MICROPUNCTURE KIT SwingShot 6F 10CM [place] SHEATH Wire(s) [employer] J WIRE FIXED MERIT .035 X 150CM GUIDEWIRE Catheter(s) [employer] JR4 DIAG CATH 6F [facility] JR4 DIAG CATH 6F MARIA T AND [employer] PIGTAIL STRAIGHT DIAG CATH 6F See Nursing Notes for further details Signed By Eladio Ingram MD On 01/10/2021 11:05:05 Eladio Ingram MD _ _ [facility] ECHOCARDIOGRAM 2D COMPLETEOr dered By: Eladio Ingram on 10-15-2020 Aortic valve area 2.04661 cm [facility] AV mean gradient 6 mmHg [facility] EF 62.7797 % [facility] Patient Info Name: Morro RICO Age: 75 years : 1945 Gender: Male Ht: 175 cm Wt: 106 kg BSA: 2.31 m2 HR: 50 bpm BP: 134 / 72 mmHg Heart Rhythm: Bradycardia, Sinus Rhythm Technical Quality: Fair, Technically difficult Exam Date: 10/15/2020 12:57 PM Patient Status: Outpatient Member Service Representative: Tracy Bonilla, DRU, RVT Exam Type: ECHOCARDIOGRAM COMPLETE W CONTRAST Study Info Indications - Dyspnea Attending Physician: ELADIO INGRAM Referring Physician: ELADIO INGRAM ; [id number] BMI: 34.56 kg/m2 Summary 1. Left ventricular [...] Velocity 1.09 m/s (more content not included)... [facility] Interface, Rad In artlab Xper Echopacs - 10/15/2020 4:30 PM EDT Patient Info Name: ERIBERTO RICO Age: 75 years : 1945 Gender: Male Ht: 175 cm Wt: 106 kg BSA: 2.31 m2 HR: 50 bpm BP: 134 / 72 mmHg Heart Rhythm: Bradycardia, Sinus Rhythm Technical Quality: Fair, Technically difficult Exam Date: 10/15/2020 12:57 PM Patient Status: Outpatient Member Service Representative: Motil, Tracy, RDCS, RVT Exam Type: ECHOCARDIOGRAM COMPLETE W CONTRAST Study Info Indications - Dyspnea Attending Physician: ELADIO INGRAM Referring Physician: ELADIO INGRAM ; [id number] BMI: 34.56 kg/m2 Summary 1. Left ventricular [...] mmHg MV VTI 46 cm MV Decel [place] 333 cm/s2 MV PHT 38 ms MV Area (PHT) 5.8 cm2 4.0-5.0 MV Area (Cont Eq VTI) 2.5 cm2 MV Area Index (Cont Eq VTI) 1.06 cm2/m2 MV Di (more content not included)... [facility] ECHOCARDIOGRAM COMPLETE W CO NTRASTon 10-15-2020 ECHOCARDIOGRAM COMPLETE W CONTRAST Patient Info Name: ERIBERTO RICO Age: 75 years : 1945 Gender: Male Ht: 175 cm Wt: 106 kg BSA: 2.31 m2 HR: 50 bpm BP: 134 / 72 mmHg Heart Rhythm: Bradycardia, Sinus Rhythm Technical Quality: Fair, Technically difficult Exam Date: 10/15/2020 12:57 PM Patient Status: Outpatient Member Service Representative: Tracy Bonilla, DRU, RVT Exam Type: ECHOCARDIOGRAM COMPLETE W CONTRAST Study Info Indications - Dyspnea Attending Physician: ELADIO INGRAM Referring Physician: ELADIO INGRAM ; [id number] BMI: 34.56 kg/m2 Summary 1. Left ventricular [...] mmHg MV VTI 46 cm MV Decel [place] 333 cm/s2 MV PHT 38 ms MV Area (PHT) 5.8 cm2 4.0-5.0 MV Area (Cont Eq VTI) 2.5 cm2 MV Area Index (Cont Eq VTI) 1.06 cm2/m2 MV Diastolic Function MV E Peak Velocity 1 m/s MV A Peak Velocity 1 m/s MV E/A 1.2 MV (more content not included)... Normal [facility] Ambulatory ECG 12-LEADOrdered By: Fernanda Acuña on 10-09-2020 Atrial Rate [facility] P [place] [facility] P-R Interval [facility] Q-T Interval [facility] Q-T Interval (corrected) [facility] QRS Duration [facility] QTC Calculation (Bezet) [facility] R [place] [facility] T [place] [facility] Ventricular Rate [facility] Auto Diffon 09-15-2018 Basophils #/vol (Bld) 0.0 E3/mcL Normal 0.0-0.2 [facility] Comment on above: Order Comment: Order Added by Discern Expert. Performed By: #### 2 [id number] #### [employer] [address] [place] [address] Basophils/100 WBC (Bld) 0.6 % Normal 0.0-2.0 [facility] Comment on above: Order Comment: Order Added by Discern Expert. Performed By: #### 2 [id number] #### [employer] [address] [place] [address] Eos Absolute 0.1 E3/mcL Normal 0.0-0.7 [facility] Comment on above: Order Comment: Order Added by Discern Expert. Performed By: #### 2 [id number] #### [employer] [address] [place] [address] Eosinophils/100 WBC (Bld) 2.2 % Normal 0.0-11.0 [facility] Comment on above: Order Comment: Order Added by Discern Expert. Performed By: #### 2 [id number] #### [employer] [address] [place] [address] Lymphocytes #/vol (Bld) 1.9 E3/mcL Normal 1.2-3.4 [facility] Comment on above: Order Comment: Order Added by Discern Expert. Performed By: #### 2 [id number] #### [employer] [address] [place] [address] Lymphocytes/100 WBC (Bld) 31.0 % Normal 20.0-55.0 [facility] Comment on above: Order Comment: Order Added by Discern Expert. Performed By: #### 2 [id number] #### [facility] [employer] [address] [place] [address] [place] Absolute 0.8 E3/mcL High 0.0-0.7 [facility] Comment on above: Order Comment: Order Added by Discern Expert. Performed By: #### 2 [id number] #### [employer] [address] [place] [address] Monocytes/100 WBC (Bld) 13.2 % High 0.0-10.0 [facility] Comment on above: Order Comment: Order Added by Discern Expert. Performed By: #### 2 [id number] #### [employer] [address] [place] [address] Neutro Absolute 3.3 E3/mcL Normal 1.4-6.5 [facility] Comment on above: Order Comment: Order Added by Discern Expert. Performed By: #### 2 [id number] #### [employer] [address] [place] [address] Neutro Auto 53.0 % Normal 37.0-75.0 [facility] Comment on above: Order Comment: Order Added by Discern Expert. Performed By: #### 2 [id number] #### [employer] [address] [place] [address] BMPon 09-15-2018 Anion gap molar conc 10 mmol/L Normal 10-20 [facility] Comment on above: Performed By: #### 2 [id number] #### [employer] [address] [place] [address] Calcium mass conc 8.4 mg/dL Low 8.6-10.3 [facility] Comment on above: Performed By: #### 2 [id number] #### [employer] [address] [place] [address] Chloride molar conc 105 mmol/L Normal 98-107 [facility] Comment on above: Performed By: #### 2 [id number] #### [employer] [address] [place] [address] CO2 molar conc 26.0 mmol/L Normal 21.0-32.0 [facility] Comment on above: Performed By: #### 2 [id number] #### [employer] [address] [place] [address] Creatinine mass conc 1.1 mg/dL Normal 0.5-1.3 [facility] Comment on above: Performed By: #### 2 [id number] #### [employer] [address] [place] [address] Glucose mass conc 136 mg/dL High 70-99 [facility] Comment on above: Performed By: #### 2 [id number] #### [employer] [address] [place] [address] Potassium molar conc 4.1 mmol/L Normal 3.5-5.3 [facility] Comment on above: Performed By: #### 2 [id number] #### [employer] [address] [place] [address] Sodium molar conc 137 mmol/L Normal 136-145 [facility] Comment on above: Performed By: #### 2 [id number] #### [employer] [address] [place] [address] Urea nitrogen mass conc 19 mg/dL Normal 6-23 [facility] Comment on above: Performed By: #### 2 [id number] #### [employer] [address] [place] [address] Urea nitrogen/Creatinine mass ratio 17.3 ratio Normal 5.4-30.0 [facility] Comment on above: Performed By: #### 2 [id number] #### [employer] [address] [place] [address] CBC w/ Auto Diffon 9 Erythrocyte distribution width Ratio (RBC) 14.9 % High 11.5-14.5 [facility] Comment on above: Performed By: #### 2 [id number] #### [facility] [employer] [address] [place] [address] Hematocrit Volume Fraction (Bld) 41.5 % Low 42.0-52.0 [facility] Comment on above: Performed By: #### 2 [id number] #### [employer] [address] [place] [address] Hemoglobin mass conc (Bld) 13.6 g/dL Normal 13.5-18.0 [facility] Comment on above: Performed By: #### 2 [id number] #### [facility] [employer] [address] [place] [address] MCH Entitic mass (RBC) 29.6 pg Normal 27.0-31.0 [facility] Comment on above: Performed By: #### 2 [id number] #### [facility] [employer] [address] [place] [address] MCHC mass conc (RBC) 32.8 g/dL Low 33.0-37.0 [facility] Comment on above: Performed By: #### 2 [id number] #### [facility] [employer] [address] [place] [address] MCV Entitic volume (RBC) 90.4 fL Normal 78.0-100.0 [facility] Comment on above: Performed By: #### 2 [id number] #### [employer] [address] [place] [address] Platelet mean volume Entitic volume (Bld) 10.8 fL Normal 7.4-11.0 [facility] Comment on above: Performed By: #### 2 [id number] #### [employer] [address] [place] [address] Platelets #/vol (Bld) 137 E3/mcL Normal 130-400 [facility] Comment on above: Performed By: #### 2 [id number] #### [facility] [employer] [address] [place] [address] RBC #/vol (Bld) 4.59 E6/mcL Normal 3.90-6.10 [facility] Comment on above: Performed By: #### 2 [id number] #### [employer] [address] [place] [address] WBC #/vol (Bld) 6.2 E3/mcL Normal 3.6-11.0 [facility] Comment on above: Performed By: #### 2 [id number] #### [employer] [address] [place] [address] Glucose POCon 09-15-2018 Glucose mass conc 163 mg/dL High 70-99 [facility] Comment on above: Performed By: #### 2 [id number] #### [employer] [address] [place] [address] Glucose mass conc 99 mg/dL Normal 70-99 [facility] Comment on above: Performed By: #### 2 [id number] #### [employer] [address] [place], [place] [id number] Troponin-Ion 09-15-2018 Troponin I.cardiac mass conc 0.01 ng/mL Normal 0.00-0.03 [facility] Comment on above: Performed By: #### 2 [id number] #### [employer] [address] [place] [address] eGFRon 09-15-2018 GFR/1.73 sq M predicted among non-blacks MDRD vol rate/area (S/P/Bld) mL/min/{1.73_m2} Normal [facility] Comment on above: Order Comment: Order added by Discern Expert. Performed By: #### 2 [id number] #### [employer] [address] [place] [address] Auto Diffon 09-14-2018 Basophils #/vol (Bld) 0.0 E3/mcL Normal 0.0-0.2 [facility] Comment on above: Order Comment: Order Added by Discern Expert. Performed By: #### 2 [id number] #### [employer] [address] [place] [address] Basophils/100 WBC (Bld) 0.6 % Normal 0.0-2.0 [facility] Comment on above: Order Comment: Order Added by Discern Expert. Performed By: #### 2 [id number] #### [employer] [address] [place] [address] Eos Absolute 0.1 E3/mcL Normal 0.0-0.7 [facility] Comment on above: Order Comment: Order Added by Discern Expert. Performed By: #### 2 [id number] #### [employer] [address] [place] [address] Eosinophils/100 WBC (Bld) 1.7 % Normal 0.0-11.0 [facility] Comment on above: Order Comment: Order Added by Discern Expert. Performed By: #### 2 [id number] #### [employer] [address] [place] [address] Lymphocytes #/vol (Bld) 1.2 E3/mcL Normal 1.2-3.4 [facility] Comment on above: Order Comment: Order Added by Discern Expert. Performed By: #### 2 [id number] #### [employer] [address] [place] [address] Lymphocytes/100 WBC (Bld) 16.5 % Low 20.0-55.0 [facility] Comment on above: Order Comment: Order Added by Discern Expert. Performed By: #### 2 [id number] #### [employer] [address] [place] [address] [place] Absolute 0.8 E3/mcL High 0.0-0.7 [facility] Comment on above: Order Comment: Order Added by Discern Expert. Performed By: #### 2 [id number] #### [employer] [address] [place] [address] Monocytes/100 WBC (Bld) 11.1 % High 0.0-10.0 [facility] Comment on above: Order Comment: Order Added by Discern Expert. Performed By: #### 2 [id number] #### [employer] [address] [place] [address] Neutro Absolute 5.1 E3/mcL Normal 1.4-6.5 [facility] Comment on above: Order Comment: Order Added by Discern Expert. Performed By: #### 2 [id number] #### [employer] [address] [place] [address] Neutro Auto 70.1 % Normal 37.0-75.0 [facility] Comment on above: Order Comment: Order Added by Discern Expert. Performed By: #### 2 [id number] #### [employer] [address] [place], [place] [id number] BMPon 09-14-2018 Anion gap molar conc 13 mmol/L Normal 10-20 [facility] Comment on above: Performed By: #### 2 [id number] #### [employer] [address] [place] [address] Calcium mass conc 9.2 mg/dL Normal 8.6-10.3 [facility] Comment on above: Performed By: #### 2 [id number] #### [employer] [address] [place] [address] Chloride molar conc 105 mmol/L Normal 98-107 [facility] Comment on above: Performed By: #### 2 [id number] #### [employer] [address] [place] [address] CO2 molar conc 24.0 mmol/L Normal 21.0-32.0 [facility] Comment on above: Performed By: #### 2 [id number] #### [employer] [address] [place] [address] Creatinine mass conc 1.2 mg/dL Normal 0.5-1.3 [facility] Comment on above: Performed By: #### 2 [id number] #### [employer] [address] [place] [address] Glucose mass conc 129 mg/dL High 70-99 [facility] Comment on above: Performed By: #### 2 [id number] #### [employer] [address] [place] [address] Potassium molar conc 3.9 mmol/L Normal 3.5-5.3 [facility] Comment on above: Performed By: #### 2 [id number] #### [employer] [address] [place] [address] Sodium molar conc 138 mmol/L Normal 136-145 [facility] Comment on above: Performed By: #### 2 [id number] #### [employer] [address] [place] [address] Urea nitrogen mass conc 19 mg/dL Normal 6-23 [facility] Comment on above: Performed By: #### 2 [id number] #### [employer] [facility] [place] [address] Urea nitrogen/Creatinine mass ratio 15.8 ratio Normal 5.4-30.0 [facility] Comment on above: Performed By: #### 2 [id number] #### [employer] [address] [place] [address] CBC w/ Auto Diffon 9 Erythrocyte distribution width Ratio (RBC) 15.2 % High 11.5-14.5 [facility] Comment on above: Performed By: #### 2 [id number] #### [employer] [facility] [place] [address] Hematocrit Volume Fraction (Bld) 45.0 % Normal 42.0-52.0 [facility] Comment on above: Performed By: #### 2 [id number] #### [employer] [address] [place] [address] Hemoglobin mass conc (Bld) 15.0 g/dL Normal 13.5-18.0 [facility] Comment on above: Performed By: #### 2 [id number] #### [employer] [address] [place] [address] MCH Entitic mass (RBC) 29.8 pg Normal 27.0-31.0 [facility] Comment on above: Performed By: #### 2 [id number] #### [employer] [address] [id number] MCHC mass conc (RBC) 33.4 g/dL Normal 33.0-37.0 [facility] Comment on above: Performed By: #### 2 [id number] #### [employer] [address] [place] [address] MCV Entitic volume (RBC) 89.4 fL Normal 78.0-100.0 [facility] Comment on above: Performed By: #### 2 [id number] #### [employer] [address] [place] [address] Platelet mean volume Entitic volume (Bld) 10.8 fL Normal 7.4-11.0 [facility] Comment on above: Performed By: #### 2 [id number] #### [employer] [address] [place] [address] Platelets #/vol (Bld) 158 E3/mcL Normal 130-400 [facility] Comment on above: Performed By: #### 2 [id number] #### [employer] [address] [place] [address] RBC #/vol (Bld) 5.04 E6/mcL Normal 3.90-6.10 [facility] Comment on above: Performed By: #### 2 [id number] #### [employer] [address] [place] [address] WBC #/vol (Bld) 7.2 E3/mcL Normal 3.6-11.0 [facility] Comment on above: Performed By: #### 2 [id number] #### [employer] [address] [place] [address] CT Head or Brain w/o Contras ton 09-14-2018 CT Head or Brain w/o Contrast Exam Date/Time: 09/14/2018 15:21 EDT Reason for Exam: Injury Report STUDY: CT Head or Brain w/o Contrast; 09/14/2018 3:21 pm INDICATION: Injury. COMPARISON: 11/28/2016 ACCESSION NUMBER(S): [id number] ORDERING CLINICIAN: Kirsty Nguyen TECHNIQUE: Volume acquisition [...] by: Radha Olivarez MD Technologist: IZAIAH Normal [facility] CT Spine Cervical w/o Contra ashlee 09-14-2018 CT Spine Cervical w/o Contrast Exam Date/Time: 09/14/2018 15:22 EDT Reason for Exam: Trauma Report STUDY: CT Spine Cervical w/o Contrast; 09/14/2018 3:22 pm INDICATION: Trauma. COMPARISON: None. ACCESSION NUMBER(S): [id number] ORDERING CLINICIAN: Kirsty Nguyen TECHNIQUE: Axial CT [...] by: Radha Olivarez MD Technologist: IZAIAH Normal [facility] Glucose POCon 09-14-2018 Glucose mass conc 132 mg/dL High 70-99 [facility] Comment on above: Performed By: #### 2 [id number] #### [employer] [address] [place], [place] [id number] 09-14-2018 Hemoglobin A1c/Hemoglobin.total mass fraction (Bld) 6.9 % High 4.0-6.3 [facility] Comment on above: Performed By: #### 2 [id number] #### [employer] [address] [place], [place] [id number] Magnesiumon 09-14-2018 Magnesium mass conc 2.0 Int._Unit/L Normal 1.6-2.4 [facility] Comment on above: Performed By: #### 2 [id number] #### [employer] [address] [place] [address] PTon 09-14-2018 INR Coag RelTime (PPP) 1.0 {INR} Normal 0.9-1.1 [facility] Comment on above: Result Comment: INR Recommended Therapeutic ranges: Prophylaxis/treatment of DVT and PE..........2.0-3.0 Prevention of systemic embolism.................2.0-3.0 Mechanical prosthetic values........................2.5-3.5 CRITICAL VALUE.........................................> 4.0 NOTE: New methodology started 05/16/2018 Performed By: #### 2 [id number] #### [employer] [address] [phone] Prothrombin time (PT) Coag time (PPP) 11.8 second(s) Normal 9.7-12.7 [facility] Comment on above: Result Comment: NOTE : New reference range established on 05/16/2018 due to change in methodology. Performed By: #### 2 [id number] #### [employer] [address] [phone] PTTon 09-14-2018 aPTT Coag time (Bld) 32 second(s) Normal 28-38 [facility] Comment on above: Result Comment: NOTE :New reference range established 05/16/2018 due to change in methodology. Performed By: #### 2 [id number] #### [employer] [address] [place] [address] TSHon 09-14-2018 Thyrotropin Qn 5.25 mcIU/mL Normal 0.30-5.60 [facility] Comment on above: Performed By: #### 2 [id number] #### [employer] [address] [place] [address] Troponin-Ion 09-14-2018 Troponin I.cardiac mass conc 0.02 ng/mL Normal 0.00-0.03 [facility] Comment on above: Performed By: #### 2 [id number] #### [employer] [address] [place] [address] UA Completeon 09-14-2018 Color Nom (U) Straw Normal Yellow [facility] Comment on above: Performed By: #### 2 [id number] #### [employer] [address] [place] [address] Glucose mass conc (U) Negative Normal Negative [facility] Comment on above: Performed By: #### 2 [id number] #### [employer] [address] [place] [address] Ketones Ql (U) Negative Normal Negative [facility] Comment on above: Performed By: #### 2 [id number] #### [employer] [address] [place] [address] UA Blood Negative Normal Negative [facility] Comment on above: Performed By: #### 2 [id number] #### [employer] [address] [place] [address] UA Clarity Clear Normal Clear [facility] Comment on above: Performed By: #### 2 [id number] #### [employer] [address] [place] [address] UA Hyal Cast 3-5 Abnormal 0-2 [facility] Comment on above: Performed By: #### 2 [id number] #### [employer] [address] [phone] UA Leuk Est Negative Normal Negative [facility] Comment on above: Performed By: #### 2 [id number] #### [employer] [address] [place] [address] UA Mucous Trace Abnormal Trace [facility] Comment on above: Performed By: #### 2 [id number] #### [employer] [address] [place] [address] UA Nitrite Negative Normal Negative [facility] Comment on above: Performed By: #### 2 [id number] #### [employer] [address] [phone] UA pH 5.0 Normal 4.6-8.0 [facility] Comment on above: Performed By: #### 2 [id number] #### [employer] [address] [place] [address] UA Protein Negative Normal Negative [facility] Comment on above: Performed By: #### 2 [id number] #### [employer] [address] [place] [address] UA Spec Grav 1.009 Normal 1.003-1.03 0 [facility] Comment on above: Performed By: #### 2 [id number] #### [employer] [address] [place] [address] UA Urobilinogen Negative Normal [facility] [...] within 24 hours. Performed By: #### 2 [id number] #### [employer] [address] [phone] Urobilinogen Qn (U) Negative Normal Negative [facility] Comment on above: Performed By: #### 2 [id number] #### [employer] [facility] [place] [address] XR Chest AP Portableon 09-14 XR Chest AP Portable Exam Date/Time: 09/14/2018 15:43 EDT Reason for Exam: Chest pain Report STUDY: XR Chest AP Portable; 09/14/2018 3:43 pm INDICATION: Chest pain. COMPARISON: 12/25/2016 ACCESSION NUMBER(S): [id number] ORDERING CLINICIAN: Kirsty Nguyen FINDINGS: CARDIOMEDIASTINAL SILHOUETTE: [...] pm Signed by: Iva Vargas MD Technologist: [facility] XR Humerus Lefton 09-14-2018 XR Humerus Left Exam Date/Time: 09/14/2018 15:43 EDT Reason for Exam: Pain, Traumatic Report STUDY: XR Humerus Left; XR Shoulder Complete Left;; 09/14/2018 3:43 pm INDICATION: Pain, Traumatic. COMPARISON: None. ACCESSION NUMBER(S): [id number]; [id number] ORDERING CLINICIAN: Kirsty Nguyen FINDINGS: Five views [...] pm Signed by: Iva Vargas MD Technologist: [facility] XR Knee Complete Righton XR Knee Complete Right Exam Date/Time: 09/14/2018 15:43 EDT Reason for Exam: Pain, Traumatic Report STUDY: XR Knee Complete Right;; 09/14/2018 3:43 pm INDICATION: Pain, Traumatic. COMPARISON: None. ACCESSION NUMBER(S): [id number] ORDERING CLINICIAN: Kirsty Nguyen FINDINGS: Four views right knee: There is no fracture, dislocation or joint effusion. There is swelling anterior to the patella and infrapatellar tendon. IMPRESSION: No acute bony abnormality right knee, soft tissue swelling. FINAL REPORT Dictated: 09/14/2018 4:19 pm Iva Vargas MD Signed (Electronic Signature): 09/14/2018 4:19 pm Signed by: Iva Vargas MD Technologist: [facility] XR Shoulder Complete Lefton 09-14-2018 XR Shoulder Complete Left Exam Date/Time: 09/14/2018 15:43 EDT Reason for Exam: Pain, Traumatic Report STUDY: XR Humerus Left; XR Shoulder Complete Left;; 09/14/2018 3:43 pm INDICATION: Pain, Traumatic. COMPARISON: None. ACCESSION NUMBER(S): [id number]; [id number] ORDERING CLINICIAN: Kirsty Nguyen FINDINGS: Five views [...] pm Signed by: Iva Vargas MD Technologist: [facility] eGFRon 09-14-2018 GFR/1.73 sq M predicted among non-blacks MDRD vol rate/area (S/P/Bld) mL/min/{1.73_m2} [facility] Comment on above: Order Comment: Order added by Discern Expert. Performed By: #### 1 [id number] #### [employer] [address] [place] [address] Vital Signs Date Time Vital Sign Value Performing Clinician Facility 12-02-2024 20:56-0400 Body temperature 98.8 [degF] Dr. Marycarmen Rodriguez DO Work Phone: [facility] 12-02-2024 20:56-0400 Diastolic blood pressure 78 mm[Hg] Dr. Marycarmen Rodriguez DO Work Phone: [facility] 12-02-2024 20:56-0400 Heart rate 77 /min Dr. Marycarmen Rodriguez DO Work Phone: [facility] 12-02-2024 20:56-0400 Respiratory rate 21 /min Dr. Marycarmen Rodriguez DO Work Phone: [facility] 12-02-2024 20:56-0400 SaO2% (BldA) [Mass fraction] 96 % Dr. Marycarmen Rodriguez DO Work Phone: [facility] 12-02-2024 20:56-0400 Systolic blood pressure 114 mm[Hg] Dr. Marycarmen Rodriguez DO Work Phone: [facility] 12-02-2024 20:21-0400 Inhaled oxygen flow rate 3 L/min Dr. Marycarmen Rodriguez DO Work Phone: [facility] 12-02-2024 20:16-0400 Body height 175.[address] Marycarmen Rodriguez DO Work Phone: [facility] 12-02-2024 20:16-0400 Body mass index (BMI) [Ratio] 35.9 kg/m2 Dr. Marycarmen Rodriguez DO Work Phone: [facility] 12-02-2024 20:16-0400 Body weight 110.[address] Marycarmen Rodriguez DO Work Phone: [facility] 12-02-2024 14:08-0400 Body temperature 98.8 [degF] Dr. Marycarmen Rodriguez DO Work Phone: [facility] 12-02-2024 14:08-0400 Diastolic blood pressure 72 mm[Hg] Dr. Marycarmen Rodriguez DO Work Phone: [facility] 12-02-2024 14:08-0400 Heart rate 78 /min Dr. Marycarmen Rodriguez DO Work Phone: [facility] 12-02-2024 14:08-0400 Respiratory rate 18 /min Dr. Marycarmen Rodriguez DO Work Phone: [facility] 12-02-2024 14:08-0400 SaO2% (BldA) [Mass fraction] 98 % Dr. Marycarmen Rodriguez DO Work Phone: [facility] 12-02-2024 14:08-0400 Systolic blood pressure 150 mm[Hg] Dr. Marycarmen Rodriguez DO Work Phone: [facility] 12-02-2024 14:01-0400 Inhaled oxygen flow rate 3 L/min Dr. Marycarmen Rodriguez DO Work Phone: [facility] 12-02-2024 08:32-0400 Body height 175.[address] Marycarmen Rodriguez DO Work Phone: [facility] 12-02-2024 08:32-0400 Body weight 109.[address] Marycarmen Rodriguez DO Work Phone: [facility] 12-02-2024 05:30-0400 Body mass index (BMI) [Ratio] 35.6 kg/m2 Dr. Marycarmen Rodriguez DO Work Phone: [facility] 11-30-2024 15:45-0400 Diastolic blood pressure 70 mm[Hg] Dr. Marycarmen Rodriguez DO Work Phone: [facility] 11-30-2024 15:45-0400 Systolic blood pressure 146 mm[Hg] Dr. Marycarmen Rodriguez DO Work Phone: [facility] 11-28-2024 09:15-0400 SaO2% (BldA) [Mass fraction] 94 % Dr. Marycarmen Rodriguez DO Work Phone: [facility] 11-28-2024 09:10-0400 Body temperature 97.5 [degF] Dr. Marycarmen Rodriguez DO Work Phone: [facility] 11-28-2024 09:10-0400 Diastolic blood pressure 64 mm[Hg] Dr. Marycarmen Rodriguez DO Work Phone: [facility] 11-28-2024 09:10-0400 Heart rate 86 /min Dr. Marycarmen Rodriguez DO Work Phone: [facility] 11-28-2024 09:10-0400 Respiratory rate 18 /min Dr. Marycarmen Rodriguez DO Work Phone: [facility] 11-28-2024 09:10-0400 Systolic blood pressure 129 mm[Hg] Dr. Marycarmen Rodriguez DO Work Phone: [facility] 11-28-2024 05:13-0400 Body mass index (BMI) [Ratio] 35.2 kg/m2 Dr. Marycarmen Rodriguez DO Work Phone: [facility] 11-28-2024 05:13-0400 Body weight 108.[address] Marycarmen Rodriguez DO Work Phone: [facility] 11-27-2024 15:54-0400 Body height 175.[address] Marycarmen Rodriguez DO Work Phone: [facility] 11-27-2024 15:54-0400 Body mass index (BMI) [Ratio] 35.4 kg/m2 Dr. Marycarmen Rodriguez DO Work Phone: [facility] 11-27-2024 15:54-0400 Body weight 108.[address] Marycarmen Rodriguez DO Work Phone: [facility] 11-27-2024 13:45-0400 Diastolic blood pressure 68 mm[Hg] Dr. Marycarmen Rodriguez DO Work Phone: [facility] 11-27-2024 13:45-0400 Heart rate 75 /min Dr. Marycarmen Rodriguez DO Work Phone: [facility] 11-27-2024 13:45-0400 Respiratory rate 21 /min Dr. Marycarmen Rodriguez DO Work Phone: [facility] 11-27-2024 13:45-0400 SaO2% (BldA) [Mass fraction] 95 % Dr. Marycarmen Rodriguez DO Work Phone: [facility] 11-27-2024 13:45-0400 Systolic blood pressure 115 mm[Hg] Dr. Marycarmen Rodriguez DO Work Phone: [facility] 11-26-2024 21:38-0400 Body temperature 98.1 [degF] Dr. Marycarmen Rodriguez DO Work Phone: [facility] 11-26-2024 21:38-0400 Diastolic blood pressure 68 mm[Hg] Dr. Marycarmen Rodriguez DO Work Phone: [facility] 11-26-2024 21:38-0400 Heart rate 68 /min Dr. Marycarmen Rodriguez DO Work Phone: [facility] 11-26-2024 21:38-0400 Respiratory rate 18 /min Dr. Marycarmen Rodriguez DO Work Phone: [facility] 11-26-2024 21:38-0400 SaO2% (BldA) [Mass fraction] 98 % Dr. Marycarmen Rodriguez DO Work Phone: [facility] 11-26-2024 21:38-0400 Systolic blood pressure 132 mm[Hg] Dr. Marycarmen Rodriguez DO Work Phone: [facility] 11-26-2024 18:03-0400 Inhaled oxygen flow rate 2 L/min Dr. Marycarmen Rodriguez DO Work Phone: [facility] 11-26-2024 17:37-0400 Body height 175.[address] Marycarmen Rodriguez DO Work Phone: [facility] 11-26-2024 17:37-0400 Body mass index (BMI) [Ratio] 37.3 kg/m2 Dr. Marycarmen Rodriguez DO Work Phone: [facility] 11-26-2024 17:37-0400 Body weight 114.[address] Marycarmen Rodriguez DO Work Phone: [facility] 11-22-2024 10:41-0400 Body mass index (BMI) [Ratio] 35.9 kg/m2 Dr. Marycarmen Rodriguez DO Work Phone: [facility] 11-22-2024 10:41-0400 Body weight 110.[address] Marycarmen Rodriguez DO Work Phone: [facility] 11-22-2024 10:41-0400 Diastolic blood pressure 62 mm[Hg] Dr. Marycarmen Rodriguez DO Work Phone: [facility] 11-22-2024 10:41-0400 Heart rate 66 /min Dr. Marycarmen Rodriguez DO Work Phone: [facility] 11-22-2024 10:41-0400 Respiratory rate 20 /min Dr. Marycarmen Rodriguez DO Work Phone: [facility] 11-22-2024 10:41-0400 Systolic blood pressure 107 mm[Hg] Dr. Marycarmen Rodriguez DO Work Phone: [facility] 10-31-2024 07:44-0400 Body mass index (BMI) [Ratio] 35.4 kg/m2 Dr. Marycarmen Rodriguez DO Work Phone: [facility] 10-31-2024 07:44-0400 Body temperature 97.1 [degF] Dr. Marycarmen Rodriguez DO Work Phone: [facility] 10-31-2024 07:44-0400 Body weight 108.[address] Marycarmen Rodriguez DO Work Phone: [facility] 10-31-2024 07:44-0400 Diastolic blood pressure 75 mm[Hg] Dr. Marycarmen Rodriguez DO Work Phone: [facility] 10-31-2024 07:44-0400 Heart rate 64 /min Dr. Marycarmen Rodriguez DO Work Phone: [facility] 10-31-2024 07:44-0400 Respiratory rate 20 /min Dr. Marycarmen Rodriguez DO Work Phone: [facility] 10-31-2024 07:44-0400 SaO2% (BldA) [Mass fraction] 97 % Dr. Marycarmen Rodriguez DO Work Phone: [facility] 10-31-2024 07:44-0400 Systolic blood pressure 135 mm[Hg] Dr. Marycarmen Rodriguez DO Work Phone: [facility] 10-25-2024 08:10-0400 Body height 175.[address] Marycarmen Rodriguez DO Work Phone: [facility] 10-25-2024 08:10-0400 Body mass index (BMI) [Ratio] 35.9 kg/m2 Dr. Marycarmen Rodriguez DO Work Phone: [facility] 10-25-2024 08:10-0400 Body weight 110.[address] Marycarmen Rodriguez DO Work Phone: [facility] 10-25-2024 08:10-0400 Diastolic blood pressure 85 mm[Hg] Dr. Marycarmen Rodriguez DO Work Phone: [facility] 10-25-2024 08:10-0400 Heart rate 85 /min Dr. Marycarmen Rodriguez DO Work Phone: [facility] 10-25-2024 08:10-0400 Respiratory rate 18 /min Dr. Marycarmen Rodriguez DO Work Phone: [facility] 10-25-2024 08:10-0400 Systolic blood pressure 121 mm[Hg] Dr. Marycarmen Rodriguez DO Work Phone: [facility] 09-20-2024 09:15-0400 Body height 175.[address] Marycarmen Rodriguez DO Work Phone: [facility] 09-20-2024 09:15-0400 Body mass index (BMI) [Ratio] 35.6 kg/m2 Dr. Marycarmen Rodriguez DO Work Phone: [facility] 09-20-2024 09:15-0400 Body temperature 96.8 [degF] Dr. Marycarmen Rodriguez DO Work Phone: [facility] 09-20-2024 09:15-0400 Body weight 109.[address] Marycarmen Rodriguez DO Work Phone: [facility] 09-20-2024 09:15-0400 Diastolic blood pressure 77 mm[Hg] Dr. Marycarmen Rodriguez DO Work Phone: [facility] 09-20-2024 09:15-0400 Heart rate 66 /min Dr. Marycarmen Rodriguez DO Work Phone: [facility] 09-20-2024 09:15-0400 Respiratory rate 18 /min Dr. Marycarmen Rodriguez DO Work Phone: [facility] 09-20-2024 09:15-0400 SaO2% (BldA) [Mass fraction] 97 % Dr. Marycarmen Rodriguez DO Work Phone: [facility] 09-20-2024 09:15-0400 Systolic blood pressure 121 mm[Hg] Dr. Marycarmen Rodriguez DO Work Phone: [facility] 07-18-2024 06:00-0400 Body height 175.[address] Marycarmen Rodriguez DO Work Phone: [facility] 07-18-2024 06:00-0400 Body weight 104.[address] Marycarmen Rodriguez DO Work Phone: [facility] 07-18-2024 06:00-0400 Heart rate 69 /min Dr. Marycarmen Rodriguez DO Work Phone: [facility] 07-18-2024 06:00-0400 SaO2% (BldA) [Mass fraction] 97 % Dr. Marycarmen Rodriguez DO Work Phone: [facility] 07-03-2024 08:35-0500 Body mass index (BMI) [Ratio] 36.6 kg/m2 Dr. Marycarmen Rodriguez DO Work Phone: [facility] 07-03-2024 08:35-0500 Body temperature 97.5 [degF] Dr. Marycarmen Rodriguez DO Work Phone: [facility] 07-03-2024 08:35-0500 Body weight 109.[address] Marycarmen Rodriguez DO Work Phone: [facility] 07-03-2024 08:35-0500 Diastolic blood pressure 77 mm[Hg] Dr. Marycarmen Rodriguez DO Work Phone: [facility] 07-03-2024 08:35-0500 Heart rate 72 /min Dr. Marycarmen Rodriguez DO Work Phone: [facility] 07-03-2024 08:35-0500 Respiratory rate 20 /min Dr. Marycarmen Rodriguez DO Work Phone: [facility] 07-03-2024 08:35-0500 SaO2% (BldA) [Mass fraction] 96 % Dr. Marycarmen Rodriguez DO Work Phone: [facility] 07-03-2024 08:35-0500 Systolic blood pressure 116 mm[Hg] Dr. Marycarmen Rodriguez DO Work Phone: [facility] 04-17-2024 15:55-0500 Body height [address] Marycarmen Rodriguez DO Work Phone: [facility] 04-17-2024 15:55-0500 Body mass index (BMI) [Ratio] 36.9 kg/m2 Dr. Marycarmen Rodriguez DO Work Phone: [facility] 04-17-2024 15:55-0500 Body weight 110.[address] Marycarmen Rodriguez DO Work Phone: [facility] 04-17-2024 15:55-0500 Diastolic blood pressure 53 mm[Hg] Dr. Marycarmen Rodriguez DO Work Phone: [facility] 04-17-2024 15:55-0500 Heart rate 70 /min Dr. Marycarmen Rodriguez DO Work Phone: [facility] 04-17-2024 15:55-0500 Respiratory rate 18 /min Dr. Marycarmen Rodriguez DO Work Phone: [facility] 04-17-2024 15:55-0500 SaO2% (BldA) [Mass fraction] 94 % Dr. Marycarmen Rodriguez DO Work Phone: [facility] 04-17-2024 15:55-0500 Systolic blood pressure 91 mm[Hg] Dr. Marycarmen Rodriguez DO Work Phone: [facility] 03-27-2024 10:17-0500 Diastolic blood pressure 79 mm[Hg] Dr. Marycarmen Rodriguez DO Work Phone: [facility] 03-27-2024 10:17-0500 Heart rate 67 /min Dr. Marycarmen Rodriguez DO Work Phone: [facility] 03-27-2024 10:17-0500 Respiratory rate 18 /min Dr. Marycarmen Rodriguez DO Work Phone: [facility] 03-27-2024 10:17-0500 Systolic blood pressure 134 mm[Hg] Dr. Marycarmen Rodriguez DO Work Phone: [facility] 03-20-2024 08:28-0500 Body mass index (BMI) [Ratio] 37.5 kg/m2 Dr. Marycarmen Rodriguez DO Work Phone: [facility] 03-20-2024 08:28-0500 Body weight 112.[address] Marycarmen Rodriguez DO Work Phone: [facility] 03-20-2024 08:28-0500 Diastolic blood pressure 89 mm[Hg] Dr. Marycarmen Rodriguez DO Work Phone: [facility] 03-20-2024 08:28-0500 Heart rate 61 /min Dr. Marycarmen Rodriguez DO Work Phone: [facility] 03-20-2024 08:28-0500 Respiratory rate 18 /min Dr. Marycarmen Rodriguez DO Work Phone: [facility] 03-20-2024 08:28-0500 Systolic blood pressure 141 mm[Hg] Dr. Marycarmen Rodriguez DO Work Phone: [facility] 12-21-2022 07:51-0400 Body height 172.[address] Marycarmen Rodriguez Work Phone: [facility] 12-21-2022 07:51-0400 Body weight 85.[address] Marycarmen Rodriguez Work Phone: [facility] 12-18-2022 08:27-0400 Body mass index (BMI) [Ratio] 28.7 kg/m2 Dr. Marycarmen Rodriguez Work Phone: [facility] 12-15-2022 13:03-0400 Body mass index (BMI) [Ratio] 28.7 kg/m2 Dr. Marycarmen Rodriguez Work Phone: [facility] 12-15-2022 13:03-0400 Body weight 85.[address] Marycarmen Rodriguez Work Phone: [facility] 12-15-2022 13:03-0400 Diastolic blood pressure 92 mm[Hg] Dr. Marycarmen Rodriguez Work Phone: [facility] 12-15-2022 13:03-0400 Heart rate 72 /min Dr. Marycarmen Rodriguez Work Phone: [facility] 12-15-2022 13:03-0400 Respiratory rate 16 /min Dr. Marycarmen Rodriguez Work Phone: [facility] 12-15-2022 13:03-0400 Systolic blood pressure 156 mm[Hg] Dr. Marycarmen Rodriguez Work Phone: [facility] 10-13-2022 10:59-0400 Body height 172.[address] 10-13-2022 10:59-0400 Body mass index (BMI) [Ratio] 25.4 kg/m2 [facility]carm[facility] 10-13-2022 10:59-0400 Body weight 75.74 kg Marycarmen Jennifer [facility] 10-13-2022 10:59-0400 Diastolic blood pressure 75 mm[Hg] Marycarmen Jennifer [facility] 10-13-2022 10:59-0400 Heart rate 65 /min Marycarmen Jennifer [facility] 10-13-2022 10:59-0400 Respiratory rate 18 /min Marycarmen Jennifer [facility] 10-13-2022 10:59-0400 SaO2% (BldA) [Mass fraction] 94 % Marycarmen [facility] 10-13-2022 10:59-0400 Systolic blood pressure 143 mm[Hg] Marycarmen [facility] 09-21-2022 15:30-0400 Body mass index (BMI) [Ratio] 34.7 kg/m2 [facility]carm[facility] 09-21-2022 15:27-0400 Body temperature 98 [degF] Marycarmen [facility] 09-21-2022 15:27-0400 Diastolic blood pressure 84 mm[Hg] Marycarmen [facility] 09-21-2022 15:27-0400 Heart rate 79 /min Marycarmen [facility] [facility] 09-21-2022 15:27-0400 Respiratory rate 17 /min Marycarmen Jennifer [facility] 09-21-2022 15:27-0400 SaO2% (BldA) [Mass fraction] 96 % Marycarmen [facility] 09-21-2022 15:27-0400 Systolic blood pressure 143 mm[Hg] Marycarmen [facility] 09-21-2022 06:25-0400 Body weight 103.6 kg Marycarmen [facility] 09-19-2022 01:30-0400 Inhaled oxygen concentration 21 % Marycarmen [facility] 09-01-2022 09:59-0400 Diastolic blood pressure 68 mm[Hg] Marycarmen Jennifer [facility] 09-01-2022 09:59-0400 Heart rate 49 /min Marycarmen Jennifer [facility] 09-01-2022 09:59-0400 Systolic blood pressure 127 mm[Hg] Marycarmen Jennifer [facility] 09-01-2022 09:57-0400 Body temperature 97.9 [degF] Marycarmen Jennifer [facility] 09-01-2022 09:57-0400 Respiratory rate 18 /min Marycarmen Jennifer [facility] 09-01-2022 09:57-0400 SaO2% (BldA) [Mass fraction] 93 % [facility]carmen [facility] 09-01-2022 04:08-0400 Body mass index (BMI) [Ratio] 35.2 kg/m2 Marycarmen Jennifer [facility] 09-01-2022 04:08-0400 Body weight 108.2 kg Marycarmen Jennifer [facility] 08-31-2022 11:42-0400 Body height 175.26 cm Marycarmen Jennifer [facility] 08-19-2022 10:01-0400 Body height 175.26 cm Marycarmen Jennifer [facility] 08-19-2022 10:01-0400 Body mass index (BMI) [Ratio] 35.4 kg/m2 Marycarmen Jennifer [facility] 08-19-2022 10:01-0400 Body weight 109.03 kg Marycarmen Jennifer [facility] 08-19-2022 10:01-0400 Diastolic blood pressure 79 mm[Hg] Marycarmen Jennifer [facility] 08-19-2022 10:01-0400 Heart rate 62 /min Marycarmen Jennifer [facility] 08-19-2022 10:01-0400 Respiratory rate 18 /min Marycarmen Jennifer [facility] 08-19-2022 10:01-0400 Systolic blood pressure 144 mm[Hg] Marycarmen Jennifer [facility] 04-16-2022 12:43-0500 Body height 175.[address] Marycarmen Rodriguez Work Phone: [facility] 04-16-2022 12:43-0500 Body mass index (BMI) [Ratio] 35.2 kg/m2 Dr. Marycarmen Rodriguez Work Phone: [facility] 04-16-2022 12:43-0500 Body temperature 97 [degF] Dr. Marycarmen Rodriguez Work Phone: [facility] 04-16-2022 12:43-0500 Body weight 108.[address] Marycarmen Rodriguez Work Phone: [facility] 04-16-2022 12:43-0500 Diastolic blood pressure 78 mm[Hg] Dr. Marycarmen Rodriguez Work Phone: [facility] 04-16-2022 12:43-0500 Heart rate 66 /min Dr. Marycarmen Rodriguez Work Phone: [facility] 04-16-2022 12:43-0500 Respiratory rate 18 /min Dr. Marycarmen Rodriguez Work Phone: [facility] 04-16-2022 12:43-0500 SaO2% (BldA) [Mass fraction] 94 % Dr. Marycarmen Rodriguez Work Phone: [facility] 04-16-2022 12:43-0500 Systolic blood pressure 125 mm[Hg] Dr. Marycarmen Rodriguez Work Phone: [facility] 04-14-2022 10:27-0500 Body mass index (BMI) [Ratio] 35.2 kg/m2 Dr. Marycarmen Rodriguez Work Phone: [facility] 04-14-2022 10:27-0500 Body weight 108.[address] Marycarmen Rodriguez Work Phone: [facility] 04-14-2022 10:27-0500 Diastolic blood pressure 68 mm[Hg] Dr. Marycarmen Rodriguez Work Phone: [facility] 04-14-2022 10:27-0500 Heart rate 64 /min Dr. Marycarmen Rodriguez Work Phone: [facility] 04-14-2022 10:27-0500 Respiratory rate 18 /min Dr. Marycarmen Rodriguez Work Phone: [facility] 04-14-2022 10:27-0500 Systolic blood pressure 130 mm[Hg] Dr. Marycarmen Rodriguez Work Phone: [facility] 03-27-2022 13:25-0500 Body temperature 97.9 [degF] Dr. Marycarmen Rodriguez Work Phone: [facility] 03-27-2022 13:25-0500 Diastolic blood pressure 86 mm[Hg] Dr. Marycarmen Rodriguez Work Phone: [facility] 03-27-2022 13:25-0500 Heart rate 86 /min Dr. Marycarmen Rodriguez Work Phone: [facility] 03-27-2022 13:25-0500 Respiratory rate 14 /min Dr. Marycarmen Rodriguez Work Phone: [facility] 03-27-2022 13:25-0500 SaO2% (BldA) [Mass fraction] 96 % Dr. Marycarmen Rodriguez Work Phone: [facility] 03-27-2022 13:25-0500 Systolic blood pressure 134 mm[Hg] Dr. Marycarmen Rodriguez Work Phone: [facility] 01-07-2022 11:07-0400 Body mass index (BMI) [Ratio] 34.9 kg/m2 Dr. Marycarmen Rodriguez Work Phone: [facility] Work Phone: 01-07-2022 11:07-0400 Body temperature 97.4 [degF] Dr. Marycarmen Rodriguez Work Phone: [facility] Work Phone: 01-07-2022 11:07-0400 Body weight 107.[address] Marycarmen Rodriguez Work Phone: [facility] Work Phone: 01-07-2022 11:07-0400 Diastolic blood pressure 87 mm[Hg] Dr. Marycarmen Rodriguez Work Phone: [facility] Work Phone: 01-07-2022 11:07-0400 Heart rate 60 /min Dr. Marycarmen Rodriguez Work Phone: [facility] Work Phone: 01-07-2022 11:07-0400 Respiratory rate 16 /min Dr. Marycarmen Rodriguez Work Phone: [facility] Work Phone: 01-07-2022 11:07-0400 SaO2% (BldA) [Mass fraction] 96 % Dr. Marycarmen Rodriguez Work Phone: [facility] Work Phone: 01-07-2022 11:07-0400 Systolic blood pressure 155 mm[Hg] Dr. Marycarmen Rodriguez Work Phone: [facility] Work Phone: 11-21-2021 10:24-0400 Body height 175.[address] Marycarmen Rodriguez Work Phone: [facility] Work Phone: 11-21-2021 10:24-0400 Body mass index (BMI) [Ratio] 34.9 kg/m2 Dr. Marycarmen Rodriguez Work Phone: [facility] Work Phone: 11-21-2021 10:24-0400 Body weight 107.[address] Marycarmen Rodriguez Work Phone: [facility] Work Phone: 11-21-2021 10:24-0400 Diastolic blood pressure 77 mm[Hg] Dr. Marycarmen Rodriguez Work Phone: [facility] Work Phone: 11-21-2021 10:24-0400 Heart rate 61 /min Dr. Marycarmen Rodriguez Work Phone: [facility] Work Phone: 11-21-2021 10:24-0400 Respiratory rate 18 /min Dr. Marycarmen Rodriguez Work Phone: [facility] Work Phone: 11-21-2021 10:24-0400 SaO2% (BldA) [Mass fraction] 97 % Dr. Marycarmen Rodriguez Work Phone: [facility] Work Phone: 11-21-2021 10:24-0400 Systolic blood pressure 138 mm[Hg] Dr. Marycarmen Rodriguez Work Phone: [facility] Work Phone: 11-16-2021 16:49-0400 Diastolic blood pressure 87 mm[Hg] Dr. Marycarmen Rodriguez Work Phone: [facility] Work Phone: 11-16-2021 16:49-0400 Heart rate 53 /min Dr. Marycarmen Rodriguez Work Phone: [facility] Work Phone: 11-16-2021 16:49-0400 Respiratory rate 16 /min Dr. Marycarmen Rodriguez Work Phone: [facility] Work Phone: 11-16-2021 16:49-0400 SaO2% (BldA) [Mass fraction] 93 % Dr. Marycarmen Rodriguez Work Phone: [facility] Work Phone: 11-16-2021 16:49-0400 Systolic blood pressure 117 mm[Hg] Dr. Marycarmen Rodriguez Work Phone: [facility] Work Phone: 11-16-2021 12:55-0400 Body mass index (BMI) [Ratio] 33.2 kg/m2 Dr. Marycarmen Rodriguez Work Phone: [facility] Work Phone: 11-16-2021 12:55-0400 Body temperature 97.6 [degF] Dr. Marycarmen Rodriguez Work Phone: [facility] Work Phone: 11-16-2021 12:55-0400 Body weight 102.[address] Marycarmen Rodriguez Work Phone: [facility] Work Phone: 09-16-2021 10:37-0400 Body height 175.[address] Marycarmen Rodriguez Work Phone: [facility] Work Phone: 09-16-2021 10:37-0400 Body mass index (BMI) [Ratio] 35.7 kg/m2 Dr. Marycarmen Rodriguez Work Phone: [facility] Work Phone: 09-16-2021 10:37-0400 Body weight 109.[address] Marycarmen Rodriguez Work Phone: [facility] Work Phone: 09-16-2021 10:37-0400 Diastolic blood pressure 69 mm[Hg] Dr. Marycarmen Rodriguez Work Phone: [facility] Work Phone: 09-16-2021 10:37-0400 Heart rate 50 /min Dr. Marycarmen Rodriguez Work Phone: [facility] Work Phone: 09-16-2021 10:37-0400 Respiratory rate 18 /min Dr. Marycarmen Rodriguez Work Phone: [facility] Work Phone: 09-16-2021 10:37-0400 Systolic blood pressure 122 mm[Hg] Dr. Marycarmen Rodriguez Work Phone: [facility] Work Phone: 08-01-2021 10:02-0400 Body mass index (BMI) [Ratio] 35.7 kg/m2 Dr. Marycarmen Rodriguez Work Phone: [facility] Work Phone: 08-01-2021 10:02-0400 Body weight 109.[address] Marycarmen Rodriguez Work Phone: [facility] Work Phone: 08-01-2021 10:02-0400 Diastolic blood pressure 81 mm[Hg] Dr. Marycarmen Rodriguez Work Phone: [facility] Work Phone: 08-01-2021 10:02-0400 Heart rate 59 /min Dr. Marycarmen Rodriguez Work Phone: [facility] Work Phone: 08-01-2021 10:02-0400 Respiratory rate 18 /min Dr. Marycarmen Rodriguez Work Phone: [facility] Work Phone: 08-01-2021 10:02-0400 SaO2% (BldA) [Mass fraction] 97 % Dr. Marycarmen Rodriguez Work Phone: [facility] Work Phone: 08-01-2021 10:02-0400 Systolic blood pressure 133 mm[Hg] Dr. Marycarmen Rodriguez Work Phone: [facility] Work Phone: 08-01-2021 10:02-0400 Body height 175.[address] Marycarmen Rodriguez Work Phone: [facility] Work Phone: 08-01-2021 10:02-0400 Body mass index (BMI) [Ratio] 35.7 kg/m2 Dr. Marycarmen Rodriguez Work Phone: [facility] Work Phone: 08-01-2021 10:02-0400 Body weight 109.[address] Marycarmen Rodriguez Work Phone: [facility] Work Phone: 08-01-2021 10:02-0400 Diastolic blood pressure 81 mm[Hg] Dr. Marycarmen Rodriguez Work Phone: [facility] Work Phone: 08-01-2021 10:02-0400 Heart rate 59 /min Dr. Marycarmen Rodriugez Work Phone: [facility] Work Phone: 08-01-2021 10:02-0400 Respiratory rate 18 /min Dr. Marycarmen Rodriguez Work Phone: [facility] Work Phone: 08-01-2021 10:02-0400 SaO2% (BldA) [Mass fraction] 97 % Dr. Marycarmen Rodriguez Work Phone: [facility] Work Phone: 08-01-2021 10:02-0400 Systolic blood pressure 133 mm[Hg] Dr. Marycarmen Rodriguez Work Phone: [facility] Work Phone: 06-10-2021 18:38-0500 Diastolic blood pressure 75 mm[Hg] Dr. Marycarmen Rodriguez Work Phone: [facility] Work Phone: 06-10-2021 18:38-0500 Heart rate 57 /min Dr. Marycarmen Rodriguez Work Phone: [facility] Work Phone: 06-10-2021 18:38-0500 Respiratory rate 14 /min Dr. Marycarmen Rodriguez Work Phone: [facility] Work Phone: 06-10-2021 18:38-0500 SaO2% (BldA) [Mass fraction] 96 % Dr. Marycarmen Rodriguez Work Phone: [facility] Work Phone: 06-10-2021 18:38-0500 Systolic blood pressure 121 mm[Hg] Dr. Marycarmen Rodriguez Work Phone: [facility] Work Phone: 06-10-2021 13:36-0500 Body mass index (BMI) [Ratio] 34 kg/m2 Dr. Marycarmen Rodriguez Work Phone: [facility] Work Phone: 06-10-2021 13:36-0500 Body temperature 97 [degF] Dr. Marycarmen Rodriguez Work Phone: [facility] Work Phone: 06-10-2021 13:36-0500 Body weight 104.[address] Marycarmen Rodriguez Work Phone: [facility] Work Phone: 05-19-2021 16:55-0500 Respiratory rate 16 /min Dr. Marycarmen Rodriguez Work Phone: [facility] Work Phone: 05-19-2021 14:43-0500 Body temperature 96.5 [degF] Dr. Marycarmen Rodriguez Work Phone: [facility] Work Phone: 05-19-2021 14:43-0500 Diastolic blood pressure 94 mm[Hg] Dr. Marycarmen Rodriguez Work Phone: [facility] Work Phone: 05-19-2021 14:43-0500 Heart rate 63 /min Dr. Marycarmen Rodriguez Work Phone: [facility] Work Phone: 05-19-2021 14:43-0500 SaO2% (BldA) [Mass fraction] 99 % Dr. Marycarmen Rodriguez Work Phone: [facility] Work Phone: 05-19-2021 14:43-0500 Systolic blood pressure 172 mm[Hg] Dr. Marycarmen Rodriguez Work Phone: [facility] Work Phone: 05-19-2021 14:42-0500 Body mass index (BMI) [Ratio] 34 kg/m2 Dr. Marycarmen Rodriguez Work Phone: [facility] Work Phone: 05-19-2021 14:42-0500 Body weight 104.[address] Marycarmen Rodriguez Work Phone: [facility] Work Phone: 12-26-2020 10:29-0400 Diastolic blood pressure 76 mm[Hg] Eladio Ingram MD Work Phone: [facility] 12-26-2020 10:29-0400 Systolic blood pressure 141 mm[Hg] Eladio Ingrma MD Work Phone: [facility] 12-26-2020 10:24-0400 Body height 175.3 cm Eladio Ingram MD Work Phone: [facility] 12-26-2020 10:24-0400 Body mass index (BMI) [Ratio] 33.67 kg/m2 Eladio Ingram MD Work Phone: [facility] 12-26-2020 10:24-0400 Body weight 103.42 kg Eladio Ingram MD Work Phone: [facility] 12-26-2020 10:24-0400 Heart rate 59 /min Eldaio Ingram MD Work Phone: [facility] 12-26-2020 10:24-0400 SaO2% (BldA) [Mass fraction] 95 % Eladio Ingram MD Work Phone: [facility] 10-09-2020 10:53-0400 Diastolic blood pressure 72 mm[Hg] Fernanda Acuña CNP Work Phone: [facility] 10-09-2020 10:53-0400 Systolic blood pressure 134 mm[Hg] Fernanda Acuña HAND KNITTER Work Phone: [facility] 10-09-2020 09:59-0400 Body mass index (BMI) [Ratio] 34.6 kg/m2 Fernanda Acuña CNP Work Phone: [facility] 10-09-2020 09:59-0400 Body weight 106.28 kg Fernanda Acuña CNP Work Phone: [facility] 10-09-2020 09:59-0400 Heart rate 58 /min Fernanda Acuña CNP Work Phone: [facility] 10-09-2020 09:59-0400 Respiratory rate 16 /min Fernanda Acuña CNP Work Phone: [facility] 10-09-2020 09:59-0400 SaO2% (BldA) [Mass fraction] 94 % Fernanda Acuña CNP Work Phone: [facility] 12-17-2016 11:21-0400 BMI (Body Mass Index) 32.99 kg/m2 Eladioliliana Ingram [facility] Work Phone: 12-17-2016 11:21-0400 BP Diastolic 82 mm[Hg] Eladio Ingram [facility] Work Phone: 12-17-2016 11:21-0400 BP Systolic 150 mm[Hg] Eladio Hameedbayron [facility] Work Phone: 12-17-2016 11:21-0400 Height 175.3 cm Eladio Hameedbayron [facility] Work Phone: 12-17-2016 11:21-0400 Pulse (Heart Rate) 70 /min Eladio Ingram [facility] Work Phone: 12-17-2016 11:21-0400 Pulse Oximetry 97 % Eladio Hameedbayron [facility] Work Phone: 12-17-2016 11:21-0400 Weight 101.33 kg Eladio Ingram [facility] Work Phone: Encounters Encounter Date Encounter Type Care Provider Facility Start: 12-02-2024 Evaluation and manag ement of inpatient Dr. Marycarmen Rodriguez DO Work Phone: -Intensive Care Unit Start: 12-02-2024 Dr. Abraham Ridley DO -Intensive Care Unit Work Phone: Start: 12-02-2024 Dr. Nickie Danielson DO [facility] Work Phone: Start: 12-01-2024 Dr. Marcin Araujo MD -[facility] Start: 11-30-2024 End: 12-02-2024 Evaluation and management of inpatient Dr. Marycarmen Rodriguez DO Work Phone: -Intensive Care Unit Start: 11-30-2024 ambulatory Jose Hay Facility:[facility] Start: 11-30-2024 End: 12-02-2024 Dr. Abraham Ridley DO -Intensive Care Unit Work Phone: Start: 11-27-2024 Dr. Jose Hay MD -[facility] Start: 11-27-[address] Marycarmen vera DO Work Phone: -[facility] Start: 11-27-2024 End: 11-28-2024 ambulatory Marycarmen Rodriguez Facility:[facility] Start: 11-27-2024 End: 11-28-[address] [...] Dr. Marycarmen Rodriguez DO Work Phone: -Radiology [facility] Start: 11-22-2024 End: 11-22-2024 Gustabo Pérez DIABETES MANAGER-C -Radiology [facility] Work Phone: Start: 11-22-2024 End: 11-22-2024 Gustabo Pérez DIABETES MANAGER-C -[facility] Work Phone: Start: 11-22-2024 End: 11-22-[address] Marycarmen Rodriguez DO Work Phone: -[facility] Start: 11-22-2024 End: 11-22-2024 ambulatory Marycarmen [facility] Facility:[facility] Start: 11-20-2024 End: 11-20-[address] Marycarmen Rodriguez DO Work Phone: -Radiology [facility] Start: 11-20-2024 End: 11-20-2024 Dr. Brooks Carpenter MD -Radiology [facility] Work Phone: Start: 11-20-2024 End: 11-20-2024 ambulatory Marycarmen Jennifer Facility:[facility] Start: 11-13-2024 ambulatory Gustabo Pérez DIABETES MANAGER Facility [facility] Start: 11-13-2024 Non-patient / Non-visit Dr. Jose colon MD -[facility] Start: 11-13-2024 Dr. Jose Hay MD -[facility] Start: 11-10-2024 End: 11-10-[address] Marycarmen Rodriguez DO Work Phone: -Sleep Lab Start: 11-10-2024 End: 11-10-2024 Patient encounter procedure DIABETES MANAGER Maren Olivas -Sleep Lab Work Phone: Start: 11-10-2024 End: 11-10-2024 DIABETES MANAGER Maren Olivas -Sleep Lab Work Phone: Start: 11-10-2024 ambulatory Marycarmen [facility] Facility: [facility] Start: 11-10-2024 Non-patient / Non-visit Dr. Lance pereira MD -[facility] Work Phone: Start: 11-10-2024 Dr. Lance Rodriguez MD -[facility] Work Phone: Start: 11-10-2024 End: 11-10-[address] Marycarmen Rodriguez DO Work Phone: -Cardiovascular Services Start: 11-10-2024 End: 11-10-2024 Patient encounter procedure Gustabo Pérez DIABETES MANAGER-C -Cardiovascular Services Work Phone: Start: 11-10-2024 End: 11-10-2024 Gustabo Pérez DIABETES MANAGER-C -Cardiovascular Services Work Phone: Start: 11-09-2024 End: 11-10-[address] Marycarmen Rodriguez DO Work Phone: -Laboratory Ritesh Calvillo [facility] Start: 11-09-2024 End: 11-09-[address] Marycarmen Rodriguez DO -Laboratory Ritesh Calvillo [facility] Start: 11-09-2024 End: 11-09-2024 Dr. Marycarmen Rodriguez DO -Laboratory Ritesh Calvillo [facility] Start: 11-09-2024 End: 11-09-2024 ambulatory Marycarmen Rodriguez Facility:[facility] Start: 10-31-2024 End: 10-31-2024 Patient encounter procedure DIABETES MANAGER Maren Olivas -[facility] Work Phone: Start: 10-31-2024 End: 10-31-2024 ELIAZAR Olivas -[facility] Work Phone: Start: 10-31-2024 End: 10-31-[address] Marycarmen Rodriguez DO Work Phone: -[facility] Start: 10-26-2024 End: 10-26-[address] Marycarmen Rodriguez DO Work Phone: -Sleep Lab Start: 10-26-2024 End: 10-26-2024 Patient encounter procedure Marni Horn DIABETES MANAGER-C -Sleep Lab Work Phone: Start: 10-26-2024 End: 10-26-2024 Marni Horn DIABETES MANAGER-C -Sleep Lab Work Phone: Start: 10-25-2024 End: 10-25-2024 Patient encounter procedure Gustabo Pérez DIABETES MANAGER-C -[facility] Work Phone: Start: 10-25-2024 End: 10-25-2024 Gustabo Pérez DIABETES MANAGER-C -[facility] Work Phone: Start: 10-25-2024 End: 10-26-[address] Marycarmen Rodriguez DO Work Phone: [facility] Work Phone: Start: 10-18-2024 End: 10-18-[address] Marycarmen Rodriguez DO Work Phone: [facility] Work Phone: Start: 10-18-2024 End: 10-18-2024 Patient encounter procedure Marni Horn DIABETES MANAGER-C -Sleep Lab Work Phone: Start: 10-18-2024 End: 10-18-2024 Marni Horn DIABETES MANAGER-C -Sleep Lab Work Phone: Start: 10-18-2024 End: 10-18-[address] Marycarmen Rodriguez DO Work Phone: [facility] Work Phone: Start: 10-18-2024 End: 10-18-[address] Brooks Carpenter MD -Laboratory Work Phone: Start: 10-18-2024 End: 10-18-2024 Dr. Brooks Carpenter MD -Laboratory Work Phone: Start: 10-18-2024 End: 10-18-2024 ambulatory Marycarmen Rodriguez Facility:[facility] Start: 09-29-2024 End: 09-29-[address] Marycarmen Rodriguez DO Work Phone: [facility] Work Phone: Start: 09-29-2024 End: 09-29-[address] Marycarmen Rodriguez DO -Laboratory [place] Work Phone: Start: 09-29-2024 End: 09-29-2024 Dr. Marycarmen Rodriguez DO -[facility] [place] Work Phone: Start: 09-29-2024 End: 09-29-2024 ambulatory Marycarmen Rodriguez Facility:[facility] Start: 09-22-2024 End: 09-22-[address] Marycarmen Rodriguez DO Work Phone: [facility] Work Phone: Start: 09-22-2024 End: 09-22-2024 Patient encounter procedure Marni Horn DIABETES MANAGER-C -Sleep Lab Work Phone: Start: 09-22-2024 End: 09-22-2024 Marni Horn DIABETES MANAGER-C -Sleep Lab Work Phone: Start: 09-22-2024 End: 09-22-2024 ambulatory Marni Horn NP Facility:[facility] Start: 09-20-2024 End: 09-20-[address] Marycarmen Rodriguez DO Work Phone: [facility] Work Phone: Start: 09-20-2024 End: 09-20-2024 Patient encounter procedure DIABETES MANAGER Maren Olivas -Laboratory Work Phone: Start: 09-20-2024 End: 09-20-2024 DIABETES MANAGER Maren Olivas -Laboratory Work Phone: Start: 09-20-2024 End: 09-20-2024 Patient encounter procedure DIABETES MANAGER Maren Olivas -[facility] Work Phone: Start: 09-20-2024 End: 09-20-2024 DIABETES MANAGER Maren Olivas -[facility] Work Phone: Start: 09-20-2024 End: 09-20-[address] Marycarmen Rodriguez DO Work Phone: [facility] Work Phone: Start: 09-20-2024 End: 09-20-2024 ambulatory Maren Olivas Facility:[facility] Start: 08-03-2024 End: 08-03-[address] Marycarmen Rodriguez DO Work Phone: [facility] Work Phone: Start: 08-03-2024 End: 08-03-2024 Patient encounter procedure Marni Horn DIABETES MANAGER-C -Sleep Lab Work Phone: Start: 08-03-2024 End: 08-03-2024 Marni Horn DIABETES MANAGER-C -Sleep Lab Work Phone: Start: 08-03-2024 End: 08-03-2024 ambulatory Marycarmen Jennifer Facility:[facility] Start: 07-18-2024 ambulatory Marycarmen [facility] Facility: [facility] Start: 07-18-2024 Non-patient / Non-visit Dr. Zen schultz DO -[facility] Start: 07-18-2024 End: 07-18-[address] Marycarmen Rodriguez DO Work Phone: [facility] Work Phone: Start: 07-18-2024 End: 07-18-2024 Patient encounter procedure Marni Horn NP-C -Pulmonary Services/Neurology Work Phone: Start: 07-17-2024 Non-patient / Non-visit Dr. Zen schultz DO -[facility] Start: 07-17-2024 End: 07-18-[address] Marycarmen Rodriguez DO Work Phone: [facility] Work Phone: Start: 07-17-2024 End: 07-17-2024 Patient encounter procedure Marni Horn DIABETES MANAGER-C -Sleep Lab Work Phone: Start: 07-17-2024 End: 07-17-2024 ambulatory Marycarmen [facility] Facility:[facility] Start: 07-07-2024 End: 07-07-[address] Marycarmen Rodriguez DO Work Phone: [facility] Work Phone: Start: 07-07-2024 End: 07-07-2024 Patient encounter procedure Marni Horn DIABETES MANAGER-C -Sleep Lab Work Phone: Start: 07-07-2024 End: 07-07-2024 ambulatory [facility] Facility:[facility] Start: 07-03-2024 End: 07-03-2024 Patient encounter procedure Marni Horn DIABETES MANAGER-C -[facility] Work Phone: Start: 07-03-2024 End: 07-03-2024 ambulatory [facility] Facility:[facility] Start: 06-30-2024 End: 06-30-[address] Dow Jenniferdiogenes CATHERINE Work Phone: [facility] Work Phone: Start: 06-30-2024 End: 06-30-[address] Marycarmen Cody, Ritesh Calvillo [facility] Start: 06-30-2024 End: 06-30-2024 ambulatory [facility] Facility:[facility] Start: 04-17-2024 End: 04-17-2024 Patient encounter procedure Gustabo Pérez DIABETES MANAGER-C -[facility] Work Phone: Start: 04-17-2024 End: 04-17-2024 ambulatory Gustabo Pérez DIABETES MANAGER Facility:[facility] Start: 04-17-2024 End: 04-17-2024 ambulatory Gustabo Pérez DIABETES MANAGER Facility:[facility] Start: 03-27-2024 End: 03-27-[address] Jose Hay MD -[facility] Work Phone: Start: 03-27-2024 End: 03-27-2024 ambulatory Jose Hay Facility:[facility] Start: 03-23-2024 End: 03-23-[address] Marycarmen Cody, Ritesh Calvillo [facility] Start: 03-23-2024 End: 03-23-2024 ambulatory [facility] Facility:[facility] Start: 03-20-2024 End: 03-20-[address] Jose Hay MD -[facility] Work Phone: Start: 03-20-2024 End: 03-20-2024 ambulatory Jose Jose Armando Facility[place] Start: 05-07-2023 End: 05-07-2023 ambulatory [facility] Work Phone: Start: 05-07-2023 End: 05-07-2023 Patient encounter procedure [facility]-Lianet Ritesh Karli [facility] Start: 12-29-2022 Non-patient / Non-visit Dr. Danyelle Rodriguez Work Phone: [facility] Work Phone: Start: 12-28-2022 Non-patient / Non-visit Dr. Danyelle Rodriguez Work Phone: [facility] Start: 12-28-2022 End: 12-28-[address] Marycarmen Rodriguez Work Phone: [facility] Work Phone: Start: 12-28-2022 End: 12-28-[address] Marycarmen Rodriguez Work Phone: [facility]-Cardiovascula r Services Work Phone: Start: 12-21-2022 End: 12-21-2022 Admission to same day surgery center Dr. Marycarmen Rodriguez Work Phone: [facility]-Senior Database Engineer/Special Procedures Work Phone: Start: 12-21-2022 End: 12-21-[address] Marycarmen Rodriguez Work Phone: [facility] Work Phone: Start: 12-15-2022 End: 12-15-[address] Marycarmen Rodriguez Work Phone: [facility] Work Phone: Start: 12-15-2022 End: 12-15-[address] Marycarmen Rodriguez Work Phone: [facility]-Laboratory Work Phone: Start: 12-15-2022 End: 12-15-[address] Marycarmen Rodriguez Work Phone: [facility] Work Phone: Start: 10-16-2022 End: 10-16-2022 ambulatory Marycarmen ChiuJennifer [facility] Work Phone: Start: 10-16-2022 End: 10-16-2022 Patient encounter procedure Marycarmen Rodriguez [facility]-Pulmonary Services/Neurology Start: 10-13-2022 End: 10-13-2022 ambulatory Marycarmen Rodriguez [facility] Work Phone: Start: 10-13-2022 End: 10-13-2022 Patient encounter procedure Marycamren Rodriguez [facility] Start: 09-21-2022 Non-patient / Non-visit Marycarmen gifford [facility] Inpatient Physicians Start: 09-20-2022 Non-patient / Non-visit Marycarmen gifford [facility] Inpatient Physicians Start: 09-19-2022 Non-patient / Non-visit Marycarmen gifford [facility] Inpatient Physicians Start: 09-18-2022 Non-patient / Non-visit Marycarmen gifford [facility] Start: 09-17-2022 End: 09-17-2022 Non-patient / Non-visit Marycramen SWAIN [facility] Inpatient Physicians Start: 09-17-2022 End: 09-21-2022 Evaluation and management of inpatient Marycarmen Rodriguez [facility]-Progressive Care Unit Start: 09-09-2022 Non-patient / Non-visit Marycarmen gifford [facility] Start: 09-01-2022 Non-patient / Non-visit Marycarmen gifford [facility] Start: 08-31-2022 End: 08-31-2022 Non-patient / Non-visit Marycarmen Rodriguez [facility] Start: 08-31-2022 Non-patient / Non-visit Marycarmen adrián ирина [facility] Start: 08-31-2022 End: 09-01-2022 Evaluation and management of inpatient Marycarmen Mandelman [facility]-Progressive Care Unit Start: 08-31-2022 End: 09-01-2022 observation encounter Marycarmen Jennifer [facility] Work Phone: Start: 08-19-2022 End: 08-19-2022 ambulatory Marycarmen Rodriguez [facility] Work Phone: Start: 08-19-2022 End: 08-19-2022 Patient encounter procedure Marycarmen SWAIN [facility] Start: 08-11-2022 Non-patient / Non-visit Marycarmen snodanyelle ирина [facility] Start: 06-11-2022 End: 06-11-[address] Marycarmen Rodriguez Work Phone: [facility] Work Phone: Start: 06-11-2022 End: 06-11-[address] Marycarmen Rodriguez Work Phone: [facility] Start: 04-21-2022 Non-patient / Non-visit Dr. Danyelle Rodriguez Work Phone: [facility] Start: 04-21-2022 End: 04-21-[address] Marycarmen Rodriguez Work Phone: [facility] Work Phone: Start: 04-21-2022 End: 04-21-[address] Marycarmen Rodriguez Work Phone: [facility]-Cardiovascula r Services Start: 04-16-2022 End: 04-16-[address] Marycarmen Rodriguez Work Phone: [facility]-Pulmonary Medicine [facility] Start: 04-14-2022 End: 04-14-[address] Marycarmen Rodriguez Work Phone: [facility] Work Phone: Start: 04-14-2022 End: 04-14-[address] Marycarmen Rodriguez Work Phone: [facility] Start: 04-14-2022 End: 04-14-[address] Marycarmen Rodriguez Work Phone: [facility] Start: 03-27-2022 End: 03-27-[address] Marycarmen Rodriguez Work Phone: [facility] Start: 01-20-2022 End: 01-20-[address] [facility] Start: 01-07-2022 End: 01-07-[address] Marycamren Rodriguez [facility] Start: 11-27-2021 Non-patient / Non-visit Dr. Danyelle Rodriguez Work Phone: [facility] Start: 11-26-2021 End: 11-26-[address] Marycarmen Rodriguez Work Phone: [facility]-Pulmonary Services/Neurology Start: 11-21-2021 End: 11-21-[address] Marycarmen Rodriguez Work Phone: [facility] Start: 11-16-2021 End: 11-16-2021 Emergency department patient visit Dr. Marycarmen Rodriguez Work Phone: [facility]-Emergency Department Start: 10-28-2021 End: 10-28-[address] Marycarmen Rodriguez Work Phone: [facility]-Laboratory, [place] Start: 09-16-2021 End: 09-16-[address] Marycarmen Rodriguez [facility] Start: 09-16-2021 End: 09-16-[address] Marycarmen Rodriguez Work Phone: [facility] Start: 08-15-2021 Non-patient / Non-visit Dr. Danyelle Rodriguez Work Phone: [facility] Start: 08-15-2021 Non-patient / Non-visit Dr. Danyelle Rodriguez Work Phone: [facility] Start: 08-15-2021 End: 08-15-[address] Marycarmen Rodriguez Work Phone: [facility]-Cardiovascula r Services Start: 08-01-2021 End: 08-01-[address] Marycarmen Rodriguez Work Phone: [facility] Start: 06-10-2021 End: 06-10-2021 Emergency department patient visit Dr. Marycarmen Rodriguez Work Phone: [facility]-Emergency Department Start: 05-19-2021 End: 05-19-2021 Emergency department patient visit Dr. Marycarmen Rodriguez Work Phone: [facility]-Emergency Department Start: 05-16-2021 End: 05-16-[address] Marycarmen Rodriguez Work Phone: [facility]-Laboratory, Specimen Start: 03-19-2021 ambulatory ELADIO INGRAM [facility] Start: 02-24-2021 End: 02-25-2021 ambulatory MARYCARMEN HARRISON [facility] Start: 02-20-2021 End: 02-24-2021 ambulatory ELADIO TIFFANY [facility] Start: 01-10-2021 End: 01-10-2021 Orders Only Luma Foy RN 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) (Primary Dx) Start: 12-31-2020 Admission to [facility] Eladio Ingram MD Work Phone: [place] Comment on above: Chest pain, unspecif ied type (Primary Dx) Start: 12-26-2020 End: 12-30-2020 Orders Only Justa Euceda RN [facility] Start: 12-26-2020 End: 12-26-2020 Office outpatient visit 25 minutes Marycarmen Harrison [facility] DO Work Phone: [facility] Comment on above: Essential hypertensi on (Primary Dx); 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 Heart & Vascular Physicians Comment on above: Arrived Start: 10-10-2020 ambulatory FERNANDA ACUÑA [facility] Ambulatory Start: 10-09-2020 End: 10-09-2020 Orders Only Fernanda Acuña CNP Work Phone: [place] Comment on above: DEAN (dyspnea on exer tion) (Primary Dx) Start: 10-09-2020 End: 10-09-2020 Office outpatient new 45 minutes Fernanda Acuña CNP Work Phone: [facility] Comment on above: DEAN (dyspnea on exer tion); Essential hypertension; Type 2 diabetes mellitus without complication, without long-term current use of insulin (HCC); MATTHEW (obstructive sleep apnea); Coronary artery disease involving bois forte coronary artery of bois forte heart without angina pectoris Start: 10-04-2020 End: 10-04-2020 Orders Only Deisi March RN [facility] Office Comment on above: Shortness of breath (Primary Dx) Start: 12-17-2016 Office/outpatient vi sit, est, level 4 Eladiopanchito Ingram Work Phone: [facility] Heart & Vascular Physicians Start: 11-28-2016 End: 11-28-2016 Patient encounter procedure [facility] Transfer [place] Procedures Date Procedure Procedure Detail Performing Clinician Start: 12-02-2024 Blood count smear mc rscp w/mnl difrntl wbc count Dr. Marycarmen Rodriguez DO Work Phone: Start: 12-02-2024 Calculation of international normalized ratio Dr. Marycarmen Rodriguez DO Work Phone: Start: 12-02-[address] Marycarmen Rodriguez DO Work Phone: Start: 12-02-2024 Mean corpuscular hemoglobin concentration determination Dr. Marycarmen Rodriguez DO Work Phone: Start: 12-02-2024 Nucleated red blood cell count procedure Dr. Marycarmen Rodriguez DO Work Phone: Start: 12-02-2024 Platelet mean volume determination Dr. Marycarmen Rodriguez DO Work Phone: Start: 12-02-2024 Magnetic resonance angiography of head without contrast Dr. Marycarmen Rodriguez DO Work Phone: Start: 12-02-2024 Magnetic resonance angiography of neck without contrast Dr. Marycarmen Rodriguez DO Work Phone: Start: 12-02-2024 MRI of brain without contrast [...] Work Phone: Start: 11-26-2024 Blood count smear rscp w/mnl difrntl wbc [...] Work Phone: Comment on above: Test Ordered: [id number]-Lyjrvr+WX7Fctbvuseplqu Screen, Urine Negative ng/mL UI Reference Range: Smoaqu=752Lbudhlgyxak test includes Amphetamine and Methamphetamine.Barbiturates Negative ng/mL UI Reference Range: Orwqwv=148Vocpxbjjqjbjgrz Negative ng/mL UI Reference Range: Xmgciu=307Eobxdji (Metab.), Urine Negative ng/mL UI Reference Range: Wmupiu=545Evpzrxs Note: ng/mL UI See Final Results Reference Range: Hrcfoy=042Gmhpzr test includes Codeine, Morphine, Hydromorphone, Hydrocodone.Opiates Positive [A ] UI Reference Range: Nlxwvi=986Qjtire test includes Codeine, Morphine, Hydromorphone, Hydrocodone.Codeine Negative UI Reference Range: Qtoauz=087Hgclfllf Negative UI Reference Range: Awlewn=638Spkekzjvsskpp Negative UI Reference Range: Ellsjc=494Lxbzbipvrdl Positive [A ] UI Reference Range: .Hydrocodone Conf, MS, UR 349 ng/mL UI Reference Range: Suxrev=4298-Nrzcstmhpiwccc, Urine Negative ng/mL UI Reference Range: Cutoff=10Oxycodone/Oxymorphone, Urine Negative ng/mL UI Reference Range: Pcwqtq=882Siug includes Oxycodone and OxymorphonePCP, Urine Negative ng/mL UI Reference Range: Cutoff=25Methadone Screen, Urine Negative ng/mL UI Reference Range: Iptxmo=872Axbsetftpzft, Urine Negative ng/mL UI Reference Range: Nleehy=559Fkvfbjxh, Urine Negative ng/mL UI Reference Range: Cutoff=2.0Test includes Fentanyl and NorfentanylThis test was developed and its performance characteristicsdetermined by [facility]. It has not been cleared orapproved by the Food and Drug Administration.Tramadol Negative ng/mL UI Reference Range: Lhhprx=042Aytjfvkzuggmn, Urine Negative ng/mL UI Reference Range: Cutoff=10Creatinine, Urine 36.9 mg/dL UI Reference Range: 20.0-300.0pH, Urine 6.1 UI Reference Range: 4.5-8.9Performed at: [facility] [id number] [facility], [place], [place] [id number] Director: Erik Wallis PhD, Phone: [phone] at: [facility] [place], [place] [id number] Director: Bharath Hawthorne PhD, Phone: [phone] Start: 10-18-[address] Marycarmen Rodriguez DO Work Phone: Start: 10-18-[address] Marycarmen Rodriguez DO Work Phone: Start: 09-29-2024 Blood count smear mc rscp w/mnl difrntl [...] Phone: Start: 09-21-2022 Viral antigen assay Matilda beulah Jennifer SWAIN Start: 09-19-2022 CT of head without contrast Marycarmen SWAIN Start: 09-19-2022 MRI of cervical spine Tricia akins Jennifer [facility] Start: 09-17-2022 MRI of brain without contrast Marycarmen SWAIN Start: 09-17-2022 CT angiography of he ad and neck Marycarmen SWAIN Start: 09-17-2022 CT of head without contrast Marycarmen SWAIN Start: 05-18-2023 Plain chest X-ray Marycarmen SWAIN Start: 04-14-2022 [...] 10-15-2020 TTE w or wo fol wcon,Doppler Eladoi Ingram MD Work Phone: Start: 10-09-2020 Ecg routine ecg w/le ast 12 lds w/i&r Fernanda Silvia Domen[facility] Work Phone: Start: 08-18-2018 History of percutane ous transluminal coronary angioplasty History of percutaneous transluminal coronary angioplasty Dr. 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 Alexandr Mcclain Start: 08-13-2017 History of placement of stent for coronary artery disease History of coronary artery stent placement Dr. 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 Procedure aborted. 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5950CTC-UHNV-Dx and Stent-Mid RCA x 2 Multi Link Mini Vision Rx Stent 4.0 x 28 mm 01/21/2006 Plan of Treatment Date Care Activity Detail Author Start: 12-03-2024 Electrocardiographic procedure [facility] Start: 12-02-2024 [facility] Start: 12-02-2024 End: 12-02-2024 Hospital admission, emergency, from emergency room, medical nature [facility] Start: 12-02-2024 [facility] Start: 12-02-2024 Patient discharge [facility] Start: 12-02-2024 Electrocardiographic procedure [facility] Start: 12-02-2024 Magnetic resonance angiography of head without contrast [facility] Start: 12-02-2024 Magnetic resonance angiography of neck without contrast [facility] Start: 12-02-2024 MRA Head vessels WO contrast [facility] Start: 12-02-2024 MRA Neck vessels WO contrast [facility] Start: 12-01-2024 Vital signs measurements [facility] Start: 12-01-2024 Aspiration precautions [facility] Start: 12-01-2024 Cardiac monitoring [facility] Start: 12-01-2024 Catheterization of vein [facility] Start: 12-01-2024 Consultation [facility] Start: 12-01-[address] [facility] Start: 12-01-2024 Elevation of head of bed [facility] Start: 12-01-2024 Exercises [facility] Start: 12-01-[address] [facility] Start: 12-01-2024 Oxygen therapy [facility] Start: 12-01-2024 Patient referral to dietitian [facility] Start: 12-01-2024 Referral to occupational therapist [facility] Start: 12-01-2024 Referral to service [facility] Start: 12-01-[address] [facility] Start: 12-01-2024 Telemedicine consultation with patient [facility] Start: 12-01-2024 Tobacco use cessation education [facility] Start: 12-01-2024 End: 12-01-2024 [facility] Start: 12-01-2024 [facility] Start: 12-01-2024 [facility] Start: 12-01-2024 Electrocardiographic procedure [facility] Start: 12-01-2024 Continuous positive airway pressure ventilation treatment [facility] Start: 12-01-2024 US Heart [facility] Start: 12-01-2024 Complete blood count [facility] Start: 11-30-2024 End: 11-30-2024 [facility] Start: 11-30-2024 Following clinical pathway protocol [facility] Start: 11-30-2024 Ambulation without limitation [facility] Start: 11-30-2024 Assessment of risk of venous thromboembolism [facility] Start: 11-30-2024 Insertion of catheter into peripheral vein [facility] Start: 11-30-2024 Measuring intake and output [facility] Start: 11-30-2024 Providing care according to standard [facility] Start: 11-30-2024 Referral to service [facility] Start: 11-30-2024 Care regimes management [facility] Start: 11-30-2024 Complete blood count [facility] Start: 11-30-2024 Elevation of head of bed [facility] Start: 11-30-2024 Admission procedure [facility] Start: 11-30-2024 Cardiac monitoring [facility] Start: 11-30-2024 Cardiac rehabilitation - phase 1 [facility] Start: 11-30-2024 Cardiac rehabilitation - phase 2 [facility] Start: 11-30-2024 Dietary regime [facility] Start: 11-30-2024 Log roll [facility] Start: 11-30-2024 End: 11-30-[address] [facility] Start: 11-30-2024 Oxygen therapy [facility] Start: 11-30-2024 Patient discharge [facility] Start: 11-30-2024 Provision of activity privileges [facility] Start: 11-30-2024 Pulse taking [facility] Start: 11-30-2024 Hospital admission, emergency, from emergency room, medical nature [facility] Start: 11-30-2024 Electrocardiographic procedure [facility] Start: 11-30-2024 End: 11-30-2024 [facility] Start: 11-30-2024 Partial thromboplastin time, activated [facility] Start: 11-30-2024 Prothrombin time [facility] Start: 11-28-2024 [facility] Start: 11-28-2024 Patient discharge [facility] Start: 11-28-2024 Complete blood count [facility] Start: 11-27-2024 Following clinical pathway protocol [facility] Start: 11-27-2024 Elevation of head of bed [facility] Start: 11-27-2024 Dietary regime [facility] Start: 11-27-2024 Log roll [facility] Start: 11-27-2024 Provision of activity privileges [facility] Start: 11-27-2024 End: 11-27-2024 [facility] Start: 11-27-2024 Admission procedure [facility] Start: 11-27-2024 Cardiac monitoring [facility] Start: 11-27-2024 Cardiac rehabilitation - phase 1 [facility] Start: 11-27-2024 Cardiac rehabilitation - phase 2 [facility] Start: 11-27-[address] [facility] Start: 11-27-2024 Oxygen therapy [facility] Start: 11-27-2024 Pulse taking [facility] Start: 11-27-2024 Continuous positive airway pressure ventilation treatment [facility] Start: 11-27-[address] [facility] Start: 11-26-2024 [facility] Start: 11-26-2024 [facility] Start: 11-22-2024 Evaluation of diagnostic study results [facility] Start: 10-25-2024 Evaluation of diagnostic study results [facility] Start: 07-25-2024 Walking distance 6 minutes [facility] Start: 07-17-2024 Measurement of respiratory function [facility] Start: 12-21-2022 Patient discharge [facility] Start: 10-05-2022 Measurement of respiratory function [facility] Start: 09-21-2022 Patient discharge [facility] Start: 09-20-[address] [facility] Start: 09-18-2022 Following clinical pathway protocol [facility] Start: 09-17-2022 Aspiration precautions [facility] Start: 09-17-2022 Assessment of risk of venous thromboembolism [facility] Start: 09-17-2022 Cardiac monitoring [facility] Start: 09-17-2022 Care regimes management [facility] Start: 09-17-2022 Catheterization of vein [facility] Start: 09-17-2022 Continuous positive airway pressure ventilation treatment [facility] Start: 09-17-[address] [facility] Start: 09-17-2022 Elevation of head of bed [facility] Start: 09-17-2022 Exercises [facility] Start: 09-17-2022 Fall prevention [facility] Start: 09-17-2022 Implementation of planned interventions [facility] Start: 09-17-[address] [facility] Start: 09-17-2022 Insertion of catheter into peripheral vein [facility] Start: 09-17-2022 Introduction of urinary catheter [facility] Start: 09-17-2022 Measuring intake and output [facility] Start: 09-17-[address] [facility] Start: 09-17-2022 Oxygen therapy [facility] Start: 09-17-2022 End: 09-18-2022 Patient referral to dietitian [facility] Start: 09-17-2022 Providing care according to standard [facility] Start: 09-17-2022 Provision of activity privileges [facility] Start: 09-17-2022 Referral to occupational therapist [facility] Start: 09-17-2022 Referral to service [facility] Start: 09-17-[address] [facility] Start: 09-17-2022 Tobacco use cessation education [facility] Start: 09-17-2022 [facility] Start: 09-17-2022 Admission procedure [facility] Start: 09-01-2022 Patient discharge [facility] Start: 08-31-2022 Patient referral [facility] Work Phone: Start: 08-31-2022 Following clinical pathway protocol [facility] Start: 08-31-2022 Pulse taking [facility] Start: 08-31-2022 Cardiac monitoring [facility] Start: 08-31-2022 Cardiac rehabilitation - phase 1 [facility] Start: 08-31-2022 Cardiac rehabilitation - phase 2 [facility] Start: 08-31-[address] [facility] Start: 08-31-2022 Oxygen therapy [facility] Start: 08-31-2022 Patient discharge [facility] Start: 08-31-2022 Taking patient vital signs [facility] Start: 08-31-2022 Vascular disease risk assessment [facility] Start: 08-31-2022 Vital signs measurements [facility] Start: 08-31-2022 End: 08-31-2022 [facility] Start: 08-31-2022 Admission procedure [facility] Start: 11-16-2021 [facility] Work Phone: Start: 01-10-2021 End: 01-10-2021 Admission to same day surgery center 01/10/2021 Surgery Cardiology Eladio Ingram MD [address] [facility] [address] [place] [address] Left Heart Cath Possible PTCA/Stent 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 Procedural Care Unit Start: 01-01-2021 Influenza vaccination [facility] Start: 12-26-2020 End: 12-26-2020 Patient encounter procedure 12/26/2020 Office Visit Cardiology Marycarmen Rodriguez, [address] [facility] Sid A Sanjana [place] [id number] Eladio Ingram MD [address] [facility] [address] [place] [address] [phone] [facility] Office Start: 10-15-2020 End: 10-15-2020 Patient encounter procedure 10/15/2020 Appointment Cardiology Eladio Ingram MD [address] [place] [address] [phone] [facility] Start: 10-09-2020 End: 10-09-2020 Patient encounter procedure 10/09/2020 Office Visit Cardiology Fernanda Acuña, HAND K[employer]ITTER [address] [place] [address] [phone] [facility] Office Start: 11-05-2017 Prostate specific antigen measurement PSA Level [facility] Start: 06-01-2017 HEMOGLOBIN A1C HEMOGLOBIN A1C [facility] Work Phone: Start: 06-01-2017 Hemoglobin A1c measurement A1C [facility] Start: 06-01-2017 Hemoglobin A1c/Hemoglobin.total mass fraction (Bld) HEMOGLOBIN A1C [facility] Work Phone: Start: 01-01-2017 SEQUENTIAL INFLUENZA VACCINE (#1) SEQUENTIAL INFLUENZA VACCINE (#1) [facility] Work Phone: Start: 12-17-2016 Ambulatory 12/17/2016 Office Visit Cardiology Eladio Ingram MD [address] [facility] [address] [place] [address] [phone] [facility] Start: 2010 ABDOMINAL AORTIC ULTRASOUND ABDOMINAL AORTIC ULTRASOUND [facility] Work Phone: Start: 2010 Fall risk assessment Falls Risk Assessment [facility] Start: 2010 PNEUMOCOCCAL VACCINE AGE 65+ (1 of 2 - PCV13) PNEUMOCOCCAL VACCINE AGE 65+ (1 of 2 - PCV13) [facility] Work Phone: Start: 2005 Zoster vacc, sc ZOSTER VACCINE [facility] Work Phone: Start: 08-01-1995 Administration of herpes zoster vaccine Zoster Vaccines (1 of 2) [facility] Start: 08-01-1995 Screening for malignant neoplasm of colon [facility] Start: 08-01-1963 Hepatitis C screening Hepatitis C Screening [facility] Start: 1957 COVID-19 Vaccine (1) COVID-19 Vaccine (1) [facility] Start: 08-01-1955 3 comp foot exam completed FOOT EXAM [facility] Work Phone: Start: 08-01-1955 Albumin Test strip detection limit <= 20 mg/L mass conc (U) URINE MICROALBUMIN [facility] Work Phone: Start: 08-01-1955 Diabetic foot examination Foot Exam [facility] Start: 08-01-1955 Microalbumin measurement, urine, quantitative Urine Microalbumin [facility] Start: 08-01-1955 Ophthalmic examination and evaluation OPHTHALMOLOGY EXAM [facility] Start: 08-01-1955 FOOT EXAM FOOT EXAM [facility] Work Phone: Start: 08-01-1955 OPHTHALMOLOGY EXAM OPHTHALMOLOGY EXAM [facility] Work Phone: Start: 08-01-1955 URINE MICROALBUMIN URINE MICROALBUMIN [facility] Work Phone: Start: 08-01-1951 Pneumococcal Vaccine: Age 65+ (1 of 2 - PPSV23) Pneumococcal Vaccine: Age 65+ (1 of 2 - PPSV23) [facility] Start: 1948 History and physical examination, annual for health maintenance Wellness Visit [facility] Start: 1945 Colonoscopy COLONOSCOPY [facility] Work Phone: Start: 1945 Tetanus vaccination Tetanus: Every 10yrs [facility] Start: 1945 Colonoscopy COLONOSCOPY [facility] Work Phone: Start: 1945 End: 1945 HEPATITIS C SCREENING HEPATITIS C SCREENING [facility] Work Phone: Start: 1945 End: 1945 TETANUS EVERY 10 YR TETANUS EVERY [address] [facility] Work Phone: Alanine aminotransfe rase [Enzymatic activity/volume] in Serum or Plasma [facility] Alanine aminotransfe rase [Enzymatic activity/volume] in Serum or Plasma [facility] Albumin [Mass/volume ] in Serum or Plasma [facility] Albumin [Mass/volume ] in Serum or Plasma [facility] Alkaline phosphatase [Enzymatic activity/volume] in Serum or Plasma [facility] Alkaline phosphatase [Enzymatic activity/volume] in Serum or Plasma [facility] Anion gap in Serum or Plasma [facility] Anion gap in Serum or Plasma [facility] End: 12-26-2021 Basic metabolic 1999 panel - Serum or Plasma Basic metabolic panel Lab Routine 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 Basic metabolic 2007 panel with ionized calcium - Serum or Plasma [facility] Basic metabolic 2007 panel with ionized calcium - Serum or Plasma [facility] End: 12-17-2017 Basic metabolic panel [AGGREGATE] Basic metabolic panel Routine MATTHEW (obstructive sleep apnea) Coronary artery disease involving bois forte coronary artery of bois forte heart without angina pectoris 1 Occurrences starting 12/17/2016 until 12/17/[address] [facility] Work Phone: Bilirubin, total measurement [facility] Bilirubin, total measurement [facility] Blood chemistry [facility] BUN/Creatinine ratio [facility] BUN/Creatinine ratio [facility] Calcium [Mass/volume ] in Serum or Plasma [facility] Calcium [Mass/volume ] in Serum or Plasma [facility] Carbon dioxide, tota l [Moles/volume] in Central venous blood [facility] Carbon dioxide, tota l [Moles/volume] in Central venous blood [facility] Catheterization of l [facility] Catheterization of l [facility] Catheterization of l [facility] CBC W Auto Different ial panel - Blood [facility] CBC W Auto Different ial panel - [facility] End: 12-26-2021 Complete blood count with white cell differential, manual CBC and differential Lab Routine 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 Creatinine [Mass/vol ume] in Serum or Plasma [facility] Creatinine [Mass/vol ume] in Serum or Plasma [facility] End: 01-10-2022 CT Angiogram Aorta Chest Abdomen Pelvis CT Angiogram Aorta Chest Abdomen Pelvis Imaging Routine Coronary artery disease involving bois forte coronary artery of bois forte heart with angina pectoris (HCC) 1 Occurrences starting 01/10/2021 until 01/10/[address] [facility] Work Phone: Comment on above: 1 Occurrences starting 01/10/2021 until 01/10/2022 End: 12-04-2021 Echocardiography Echocardiogram complete Echocardiography Routine Shortness of breath 1 Occurrences starting 10/04/2020 until 12/04/[address] [facility] Comment on above: 1 Occurrences starting 10/04/2020 until 12/04/2021 Erythrocyte mean cor puscular volume determination [facility] Erythrocyte mean cor puscular volume determination [facility] Erythrocyte mean cor puscular volume determination [facility] Glucose [Mass/volume ] in Serum or Plasma [facility] Glucose [Mass/volume ] in Serum or Plasma [facility] Hematocrit [Volume F raction] of Blood [facility] Hematocrit [Volume F raction] of Blood [facility] Hematocrit [Volume F raction] of Blood [facility] Hemoglobin [Mass/vol ume] in Blood [facility] Hemoglobin [Mass/vol ume] in Blood [facility] Hemoglobin [Mass/vol ume] in Blood [facility] INR in Blood by Coag ulation assay [facility] LEFT HEART CATH POSS IBLE PTCA/STENT LEFT HEART CATH POSSIBLE PTCA/STENT [facility] Leukocytes [#/volume ] in Blood [facility] Leukocytes [#/volume ] in Blood [facility] Leukocytes [#/volume ] in Blood [facility] End: 12-17-2017 Magnesium Magnesium Routine MATHTEW (obstructive sleep apnea) Coronary artery disease involving bois forte coronary artery of bois forte heart without angina pectoris 1 Occurrences starting 12/17/2016 until 12/17/[address] [facility] Work Phone: Mean corpuscular hem oglobin concentration determination [facility] Mean corpuscular hem oglobin concentration determination [facility] Mean corpuscular hem oglobin concentration determination [facility] Mean corpuscular hem oglobin determination [facility] Mean corpuscular hem oglobin determination [facility] Mean corpuscular hem oglobin determination [facility] Measurement of renal function [facility] Measurement of renal function [facility] Measurement of respi ratory function [facility] Work Phone: Natriuretic peptide. B prohormone N-Terminal [Mass/volume] in Serum or Plasma [facility] Natriuretic peptide. B prohormone N-Terminal [Mass/volume] in Serum or Plasma [facility] NM Heart Views W str ess and W radionuclide IV [facility] Patient Education [facility] Work Phone: Patient referral [facility] Work Phone: Platelets [#/volume] in Blood [facility] Platelets [#/volume] in Blood [facility] Platelets [#/volume] in Blood [facility] Potassium measurement [facility] Potassium measurement [facility] Red blood cell count [facility] Red blood cell count [facility] Red blood cell count [facility] Red cell distributio n width determination [facility] Red cell distributio n width determination [facility] Red cell distributio n width determination [facility] Serum chloride measurement [facility] Serum chloride measurement [facility] Sodium measurement [facility] Sodium measurement [facility] Total protein measurement [facility] Total protein measurement [facility] Troponin T.cardiac [Mass/volume] in Serum or Plasma by High sensitivity method [facility] Troponin T.cardiac [Mass/volume] in Serum or Plasma by High sensitivity method [facility] Troponin T.cardiac [Mass/volume] in Serum or Plasma by High sensitivity method [facility] Troponin T.cardiac [Mass/volume] in Serum or Plasma by High sensitivity method [facility] Troponin T.cardiac [Mass/volume] in Serum or Plasma by High sensitivity method [facility] Urea nitrogen [Mass/ volume] in Serum or Plasma [facility] Urea nitrogen [Mass/ volume] in Serum or Plasma [facility] XR Chest PA and Lateral [facility] Immunizations Immunization Date Immunization Notes Care Provider Fa cility 11-26-2024 tetanus toxoid, redu terry diphtheria toxoid, and acellular pertussis vaccine, adsorbed Dr. Marycarmen Rodriguez DO Work Phone: [facility] 02-19-2023 influenza, injectabl e, quadrivalent, preservative free Dr. Marycarmen Rodriguez DO Work Phone: [facility] 01-27-2022 influenza, injectabl e, quadrivalent, preservative free Dr. Marycarmen Rodriguez DO Work Phone: [facility] 09-04-2021 Covid (Pfizer) Dr. Marycarmen hough DO Work Phone: [facility] 02-24-2021 Covid (Pfizer) Dr. Marycarmen hough DO Work Phone: [facility] 06-27-2020 Covid (Pfizer) Dr. Marycarmen hough DO Work Phone: [facility] 05-31-2020 Covid (Pfizer) Dr. Marycarmen hough DO Work Phone: [facility] 02-20-[address] Marycarmen Rodriguez Work Phone: [facility] 02-14-[address] Marycarmen Rodriguez Work Phone: [facility] 01-31-[address] Marycarmen Rodriguez Work Phone: [facility] 04-12-2017 influenza, high dose seasonal, preservative-free Dr. Marycarmen Rodriguez DO Work Phone: [facility] 11-29-2016 HEMOGLOBIN A1C [facility] Work Phone: 08-16-2014 pneumococcal polysaccharide vaccine, [address] Marycarmen Rodriguez DO Work Phone: [facility] 08-05-2005 hepatitis A vaccine, pediatric/adolescent dosage, [address] Marycarmen Rodriguez DO Work Phone: [facility] 01-14-2005 hepatitis A vaccine, pediatric/adolescent dosage, [address] Marycarmen Rodriguez DO Work Phone: [facility] 01-14-2005 TD(adult) unspecifie d formulation Dr. Marycarmen Rodriguez DO Work Phone: [facility] Payers Date Payer Category Payer Self-pay [id number] 2019 Unknown [id number] 1. [id number] 2019 Unknown [id number] 2012 Unknown [id number] 2.1 6.840.1.124859.3.249.13 2010 Medicare [id number] 2.16 .840.1.322596.3.249.13 2010 Medicare [id number] 1.2 .840.460405.1.13.385.2.7.3.557203.315 2010 Medicare [id number] 2010 Medicare [id number] 1945 Unknown [id number] 2.16. 840.1.975646.3.579.2.594 1945 Unknown [id number] 2.16. 840.1.558144.3.579.2.902 1945 Unknown [id number] 2.16. 840.1.070906.3.579.2.903 1945 Unknown [id number] 2.16. 840.1.553152.3.579.2.903 1945 Unknown [id number] 2.16. 840.1.653053.3.579.2.903 1945 Unknown [id number] 2.16. 840.1.591692.3.579.2.90 1945 Unknown [id number] 2.16. 840.1.720081.3.579.2.903 1945 Unknown [id number] 2.16. 840.1.899770.3.579.2.903 1945 Unknown [id number] 2.16. 840.1.881273.3.579.2.903 1945 Unknown [id number] 2.16 840.1.651727.3.579.2.903 Unknown [id number] 2.16.8 40.1.983208.3.579.2.462 Unknown [id number] 2.16.8 40.1.853379.3.579.2.462 Unknown [id number] 2.16.8 40.1.892040.3.579.2.462 Unknown [id number] 2.16.8 40.1.205794.3.579.2.462 Unknown [id number] 2.16.8 40.1.619762.3.579.2.462 Unknown [id number] 2.16.8 40.1.437155.3.579.2.462 Unknown [id number] 2.16.8 40.1.139593.3.579.2.462 Unknown [id number] 2.16.8 40.1.107452.3.579.2.462 Unknown [id number] 2.16.8 40.1.031181.3.579.2.462 Unknown [id number] 2.16.8 40.1.059175.3.579.2.462 Unknown [id number] 2.16.8 40.1.761336.3.579.2.462 Unknown [id number] 2.16.8 40.1.338641.3.579.2.462 Unknown [id number] 2.16.8 40.1.039154.3.579.2.462 Unknown [id number] 2.16.8 40.1.239182.3.579.2.462 Unknown [id number] 2.16.8 40.1.844576.3.579.2.462 Unknown [id number] 2.16.8 40.1.523809.3.579.2.462 Unknown [id number] 2.16.8 40.1.885773.3.579.2.462 Unknown [id number] 2.16.8 40.1.432396.3.579.2.462 Unknown [id number] 2.16.8 40.1.048536.3.579.2.462 Unknown [id number] 2.16.8 40.1.253059.3.579.2.462 Unknown [id number] 2.16.8 40.1.077460.3.579.2.462 Unknown [id number] 2.16.8 40.1.206899.3.579.2.462 Unknown [id number] 2.16.8 40.1.910904.3.579.2.462 Unknown [id number] 2.16.8 40.1.716743.3.579.2.462 Unknown [id number] 2.16.8 40.1.216301.3.579.2.462 Unknown [id number] 2.16.8 40.1.762999.3.579.2.462 Unknown [id number] 2.16.8 40.1.489448.3.579.2.462 Unknown [id number] 2.16.8 40.1.705537.3.579.2.462 Unknown [id number] 2.16.8 40.1.167422.3.579.2.462 Unknown [id number] 2.16.8 40.1.376624.3.579.2.462 Unknown [id number] 2.16.8 40.1.563399.3.579.2.462 Unknown [id number] 2.16.8 40.1.061290.3.579.2.462 Unknown [id number] 2.16.8 40.1.535069.3.579.2.462 Unknown [id number] 2.16.8 40.1.685280.3.579.2.462 Unknown [id number] 2.16.8 40.1.917149.3.579.2.462 Unknown [id number] 2.16.8 40.1.089870.3.579.2.462 Unknown [id number] 2.16.8 40.1.125455.3.579.2.462 Unknown [id number] 2.16.8 40.1.806084.3.579.2.462 Social History Date Type Detail Facility Start: 12-17-2016 End: 12-02-2024 Tobacco smoking status NHIS Former smoker [facility] Start: 12-17-2016 End: 10-09-2020 Cigarettes smoked current (pack per day) - Reported [facility] Work Phone: Start: 1945 Sex Assigned At Not on file [facility] Work Phone: Start: 12-17-2016 End: 10-09-2020 Tobacco use and exposure Never used [facility] Start: 12-17-2016 End: 01-10-2021 Alcohol intake Current non-drinker of alcohol (finding) [facility] Start: 03-10-2016 Tobacco Comment quit 25+ yrs ago [facility] Exposure to SARS-CoV -2 (event) Not sure [facility] Start: 08-01-2021 End: 12-21-2022 Tobacco smoking status NHIS Unknown if ever smoked [facility] Start: 01-12-2020 None [facility] Start: 01-12-2020 Spouse/ Signif icant Other [facility] Start: 11-18-2020 Non-smoker [facility] Start: 1945 Sex Assigned At Male W [facility] Start: 07-13-2024 End: 08-08-2024 Sex Male (finding) [facility] Medical Equipment Procedure Code Equipment Code Equipment Origin al Text Equipment Identifier Dates Stent 3.50 X 23 [facility] Xpedition Rx - [id number] FDA Start: 01-04-2015 ()[id number] [id number] FDA Start: 08-31-2022 ()[id number] [id number] FDA Start: 08-31-2022 ()[id number] [id number] FDA Start: 11-27-2024 ()[id number] [id number] FDA Start: 11-30-2024 ()[id number] 0)[id number] FDA Start: 11-30-2024 Goals Date Patient Goal Desired Activity /State Functional Status Date Assessment Result Facility 12-02-2024 Functional status Bedrest [facility] Work Phone: 11-28-2024 Functional status Ambulates [facility] Work Phone: 11-27-2024 Functional status Dangle Feet [facility] Work Phone: 09-21-2022 Functional status Chair [facility] Work Phone: 09-20-2022 Functional status Assistive Ning lauro Rolling Walker [facility] Work Phone: 09-01-2022 Functional status Activity Ability Indepe ndent [facility] Work Phone: 08-31-2022 Functional status Ambulates [facility] Work Phone: Mental Status Date Assessment Result Facility 12-02-2024 Cognitive function Voice/Name [facility] Work Phone: 12-02-2024 Cognitive function Voice/Name [facility] Work Phone: 11-28-2024 Cognitive function Voice/Name [facility] Work Phone: 11-27-2024 Cognitive function Voice/Name [facility] Work Phone: 09-21-2022 Cognitive function Voice/Name [facility] Work Phone: 09-01-2022 Cognitive function Appropriate;Cooperativ e [facility] Work Phone: 11-16-2021 Cognitive function Voice/Name [facility] Work Phone: 06-10-2021 Cognitive function Level Of Cons ciousness Awake;Alert;Appropriate [facility] Work Phone: Clinical Notes 06-25-2020 to 12-02-2024 Note Date & Type Note Facility 12-02-2024 Consult note Note Date/Time December 02, 2024 12:23pm [facility] Medical Records Department [address] [place] [address] Consultation - Neurology 12/02/24 1207 MR#: [id number] Acct: [id number] Name: ERIBERTO RICO Rep #:[id number] : 1945 79 From: Jamar Hooker PCP: Dr. Marycarmen Rodriguez, DO Status:ADM IN Location: [place] [address] Assessment and Plan: Neuro Assessment/Plan ERIBERTO RICO [...] questions or concerns. Stroke to sign off. 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 No acute intracranial abnormality. 2. Age-related senescent changes. Reading Location: [facility] Active Medications Active Medications Active Medications: Current [...] DAILY SHARON Administration Fluoxetine HCl 80 mg 08/01/25 10:00 12/02/24 10:01 Fluoxetine Hcl 40 Mg Capsule PO 80 mg DAILY SHARON Administration Furosemide 80 mg 12/01/24 10:00 Furosemide 80 Mg Tablet PO DAILY SHARON Protocol Glucagon 1 mg 11/30/24 17:07 Glucagon 1 Mg/Ml Syringe IM X1 PRN Hypoglycemia Protocol Hydralazine HCl 5 mg 12/01/24 20:19 Hydralazine 20 Mg/Ml Vial IV 12/02/24 20:19 Q30M PRN maintain BP parameters with HR <60 Dextrose 250 mls @ 0 mls/hr 11/30/24 17:07 Dextrose 10%-Water IV .Q0M PRN HYPOGLYCEMIA Protocol As Directed Sodium Chloride 250 mls @ 15 mls/hr 11/30/24 17:25 IV .[id number] PRN Saline Flush Sodium Chloride 250 mls @ 15 mls/hr 11/30/24 17:25 IV .[id number] PRN Additional IVPB Infusion Insulin Human Lispro [...] or with change in RN caregiver Freq: [id number] Protocol: Activity Type Activity Date Activity User E-sign Co-sign Detail Recorded Client Recorded Date Recorded By Document 12/01/24 20:15 [id number] 12/01/24 20:28 CD 12/01/24 20:15 [facility] Stroke [...] and with change in RN caregiver. Freq: [id number] Protocol: Activity Type Activity Date Activity User E-sign Co-sign Detail Recorded Client Recorded Date Recorded By Document 12/02/24 10:00 TSTIKA [id number] 12/02/24 10:20 TSTIKA 12/02/24 10:00 [facility] Stroke [...] MD; Dr. Marycarmen Rodriguez DO~ Signed [facility] Work Phone: 1(520) 628-248308-02-2025 Discharge summary Author Rasheed Canela [facility] Note Date/Time December 02, 2024 8:5 3pm [facility] Medical Records Department [address] [place] [address] Emergency Department Summary 12/02/24 MR#: [id number] Acct: [id number] Name: ERIBERTO RICO Rep #:[id number] : 1945 79 From: Rasheed Canela MD PCP: Dr. Marycarmen Rodriguez, Status:ADM IN Location: ICU ICU02-1 HPI History of Present Illness Chief Complaint: Chest Pain Detail of Chief Complaint: Left-sided pressure with dyspnea diaphoresis Informant: patient and spouse/S.O. Onset/Context/Timing Onset: Today (30 to 45 minutes prior to presentation) Activity at onset: sudden Timing: Continuous Quality: Positive for Heaviness and Pressure Location: Left Parasternal Current Severity: Mild Maximum Severity: Moderate Worsened By: Nothing Relieved By: Nothing Associated Symptoms: Positive for Diaphoresis, Dyspnea and Lightheadedness (Weakness lightheadedness); Negative for Nausea, Vomiting, Cough, Fever, Acid Reflux or Palpitations Narrative Narrative: Patient is a 79-year-old male. He was seen for chest pain on November 26. Since both troponins were normal after discussion with cardiology he was discharged home. He underwent cardiac catheterization on 27 November. He had a stent placed in his proximal RCA. He returned on November 30 with EKG changes consistent with a ST elevation [place]. He had [address] elevation with reciprocal changes notedinferior leads. He was discharged from the hospital at approximately 1400 so hecould go to his granddaughter's wedding. While at the wedding he developed leftparasternal heaviness tightness with diaphoresis and shortness of breath. He received 4 baby aspirin and Brilinta prehospital. Heparin was ordered but not given since IV was not established. Based on the EKG prehospital STEMI alert was paged out. Spoke with cardiology. Patient still having chest discomfort. States its mild 2 to 3 out of 10. Patient has no other symptoms or complaints. 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 tabs Instructions: Until instructed to restart nitroglycerin 0.4 mg sublingual 0.4 mg sublingual Q5-1 5M PRN CHEST 06/14/24 Unknown Rx tablet PAIN #25 tabs pantoprazole 40 mg tablet,delayed 40 mg PO DAILY GERD #90 tabs 06/14/24 Unknown Rx release potassium chloride 20 mEq 60 meq (3 x 20 mEq) PO BID 0 06/14/24 Unknown Rx tablet,extended release(part/cryst) supplement #180 ta bs Held on 12/02/24. Instructions: Until instructed to restart spironolactone 50 mg tablet 50 mg PO DAILY diuretic #9 0 tabs 06/14/24 Unknown Rx Held on 12/02/24. Instructions: Resume on 12/04/24. amlodipine 5 mg tablet 5 mg PO QPM blood pressure 0 10/25/24 Unknown History isosorbide mononitrate 60 mg 60 mg PO BID heart #90 TA BLETS 10/25/24 Unknown Rx tablet,extended release 24 hr metolazone 2.5 mg tablet 2.5 mg PO QDAY diuretic 10/02 09/24 Unknown History Held on 12/02/24. Instructions: Resume on 12/04/24. metoprolol succinate 25 mg 25 mg PO DAILY blood pressu re #30 10/25/24 Unknown Rx tablet,extended release 24 hr tabs hydrocodone-acetaminophen 5-325mg 1 tab PO TID PRN jennifer n 11/22/24 11/27/24 History 5mg-325mg furosemide 80 mg tablet 80 mg PO DAILY #30 tabs 11/01 12/25 Unknown Rx Held on 12/02/24. Instructions: Resume on 12/04/24. ticagrelor 90 mg tablet (Brilinta) 90 mg PO BID #60 ta bs 12/02/24 Unknown Rx Allergy/AdvReac Type Severity Reaction Status [...] Number of servings: 6 ROS ROS ED Constitutional Constitutional ED: Denies chills, fever(s) or subjective Eyes Eyes: Reports none Cardiovascular Cardiovascular: Reports as per HPI Respiratory/Chest Respiratory/Chest: Reports dyspnea; Denies cough Gastrointestinal Gastrointestinal: Reports nausea; Denies abdominal pain, constipation, melena orvomiting Genitourinary Genitourinary ED: Denies dysuria or hematuria Musculoskeletal Musculoskeletal: Denies arthralgias, back pain or myalgias Integumentary Denies rash Neurologic Neurologic: Reports weakness Hematologic/Lymphatic Hematologic/Lymphatic: Reports easy bruising; Denies easy bleeding EXAM Physical Exam Const Vital Signs: 12/02/24 20:16 12/02/24 20:19 12/02/24 20:21 Temperature 98.8 F Temperature Source Oral Pulse Rate 83 Respiratory Rate 19 H Respiratory Effort Blood Pressure 129/78 H 129/78 H Blood Pressure Mean 95 Pulse Ox 96 Oxygen Delivery Method Nasal Cannula Nasal Cannula Oxygen Flow Rate (L/min) 3 3 12/02/24 20:24 Temperature Temperature Source Pulse Rate Respiratory Rate Respiratory Effort Short of Breath Blood Pressure Blood Pressure Mean Pulse Ox Oxygen Delivery Method Oxygen Flow Rate (L/min) Positive well nourished and well developed Constitutional Narrative: BMI is 36. He appears slightly pale. He is skin is moist. General Appearance ED: well developed and pallor HEENT normocephalic and atraumatic Eyes PERRL and EOMs intact bilaterally General Eye ED: Negative for pale conjunctiva or scleral icterus Neck no lymphadenopathy, supple and no JVD Chest Wall inspection of chest normal and palpation of chest normal Resp normal respiratory effort and clear to auscultation bilaterally Cardio regular rate, regular rhythm, S1 normal heart sound, S2 normal heart sound and no murmurs GI normal to inspection, nondistended, normoactive bowel sounds, soft to palpation,non-tender, non-distended and no masses; Negative for hepatosplenomegaly Back/Spine no CVA tenderness and no thoracic nor lumbar tenderness Extremity Extremity Narrative: Patient has bruising of his right upper extremity and right groin. Neuro CN's II-XII intact bilaterally Sensorium / Orientation: awake and alert Psych mental status grossly normal Skin no rashes or lesions noted and no wounds General Skin Exam: pallor MDM MDM MDM Narrative Medical decision making narrative: STEMI alert was paged based on prehospital EKG which revealed ST elevation in inferior leads with reciprocal changes. His ER visits for the and were reviewed. His assessment by Dr. Dickey on all November 30 was reviewed[address] with Dr[address] Simpson the maintainer plant. He was made aware of patient's history, EKG findings and prehospital treatment. Lab Data Attestation: I reviewed the patient's lab results. Lab results narrative: EKG was not repeated since prehospital EKG revealed ST elevation [place] with reciprocal changes. CBC reveals mild anemia with an elevated white count. This is unchanged from prior. Electrolyte panel is remarkable for CO2 of 20.5 with a normal anion gap. Creatinine is elevated 2.9. Glucose is elevated 175 with a normal anion gap. Prior creatinine was 2.93 with an estimated GFR of 21 which is unchanged. Labs: Laboratory Results - last 24 hr 12/02/24 20:19 WBC 12.7 H RBC 3.81 L Hgb 11.1 L Hct 34.1 L MCV 89.5 MCH 29.1 MCHC 32.6 RDW Std Deviation 45.8 H RDW Coeff of Adrian 14.1 Plt Count 134 L MPV 12.8 H Immature Gran % (Auto) 0.600 Neut % (Auto) 76.7 H Lymph % (Auto) 8.9 L [place] % (Auto) 12.7 H Eos % (Auto) 0.8 Baso % (Auto) 0.3 Absolute Neuts (auto) 9.8 H Absolute Lymphs (auto) 1.13 Nucleated RBC % 0 PT 14.6 INR 1.1 APTT 31.6 Sodium 131 L Potassium 4.6 Chloride 96 L Carbon Dioxide 20.5 L Anion Gap 14 BUN 52 H Creatinine 2.90 H Estim Creat Clear Calc 25.31 L Est GFR (MDRD) Non-Af 21 L BUN/Creatinine Ratio 18.0 Glucose 175 H Calcium 9.1 Management Discussion w/another healthcare provider: Hospitalist (Dr. 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 Driver (roughing mill operator) Critical Care Time Critical Care Time: Yes Critical care time (excluding procedures): 30-74 minutes (15), Including time spent: (History, physical, documentation, prehospital med direction, discussion with , review of prior records and independent rotation of EKG), Discussing w/Patient &/or Family/Power And Recovery Supervisor (Spoke with who informing that he just left the hospital this afternoon to attend his granddaughter's wedding.), Discussing w/Consultants (roughing mill operator and hospitalist) and Arranging Admission or Transfer Discharge Plan Dx/Rx/DC Orders Clinical Impression: Acute ST elevation myocardial infarction (STEMI) of inferior wall, Obstructive sleep apnea, Obesity, Chronic kidney disease, Diabetes mellitus, Hyperlipidemia Disposition Disposition: Acute Care Hospital [facility] What to do if you have Problems For any increased pain, shortness of breath, bleeding, nausea or vomiting, chestpain, or any unexpected problems, contact your Primary Care Provider. Call [facility] ([phone]) or report to the closest Emergency Room. Call 911 if necessary. 12/02/242052 <Electronically signed by Rasheed Canela MD> Cosigner Signature (if applicable): CC: Dr. Marycarmen Rodriguez, DO ~ Signed [facility] Work Phone: 1(979) 109-742008-02-2025 Hospital Discharge instructionsAdditional Instructions 1. It is very important to not miss any doses of your ticagrelor (Brilinta) and aspirin. Please take these as prescribed with no missed doses. If you miss doses you could clot off your stents. [facility]: [facility] Phone: 1(728) 630-289908-01-2025 Progress note Author Abraham [facility] Note Date/Time December 01, 2024 8:2 6pm [facility] Medical Records Department [address] [place] [address] Progress Note - Hospitalist 12/01/242020 MR#: [id number] Acct: [id number] Name: ERIBERTO RICO Rep #:[id number] : 1945 79 From: Abraham inman DO PCP: Dr. Marycarmen Rodriguez, Status:ADM IN Location: [place] [id number]- Hospitalist Note Stroke alert called around 7 PM. Last known well 6:55 PM. Patient reported to [facility] that he had left facial numbness [...] the patient closely. 12/01/242025 <Electronically signed by Arbaham Ridley DO> Cosigner Signature (if applicable): CC: ~ Signed [facility] Work Phone: 1(899) 278-220208-01-2025 Radiology Diagnostic study [facility]08-01-2025 Progress note Author Nickie Danielson [facility] Note Date/Time December 01, 2024 3:5 0pm [facility] Medical Records Department [address] [facility] [place] [address] Progress Note - Hospitalist 12/01/24712 MR#: [id number] Acct: [id number] Name: ERIBERTO RICO Rep #:[id number] : 1945 79 From: Nickie Danielson DO PCP: Dr. Marycarmen Rodriguez DO Status:ADM IN Location: [place] [address] Reason for Visit Chief Complaint: STEMI Subjective [...] 80.9 H, Lymph % (Auto) 10.1 L, [place] % (Auto) 7.7, Eos % (Auto) 0.4, Baso % (Auto) 0.2, Absolute Neuts (auto) 15.5 H, Absolute Lymphs (auto) 1.93, Nucleated RBC % 0.1, PT 16.1 H, INR 1.3, APTT 112.9 H*, Sodium 135, Potassium 4.4, Chloride 98, Carbon Bgmayjb25.3 L, Anion Gap 19 H, BUN 45 [...] evidence of acute pulmonary disease. Reading Location: [facility] Physical Exam Const alert, oriented x3, [...] subcu heparin Charges/Coding Visit Charges Inpatient E&M: 02909 Subs Hosp L2 12/01/24 1550 <Electronically signed by Nickie Danielson DO> Cosigner Signature (if applicable): CC: ~ Signed [facility] Work Phone: 1(828) 464-785708-01-2025 Progress note Author Marcin Araujo [facility] Note Date/Time December 01, 2024 7:3 7am [facility] Medical Records Department [address] [place] [address] Progress Note - Cardiology 12/01/24 0734 MR#: [id number] Acct: [id number] Name: ERIBERTO RICO Rep #:[id number] : [...] 80.9 H, Lymph % (Auto) 10.1 L, [place] % (Auto) 7.7, Eos % (Auto) 0.4, Baso % (Auto) 0.2, Absolute Neuts (auto) 15.5 H, Absolute Lymphs (auto) 1.93, Nucleated RBC % 0.1, PT 16.1 H, INR 1.3, APTT 112.9 H*, Sodium 135, Potassium 4.4, Chloride 98, Carbon Byaxnmz49.3 L, Anion Gap 19 H, BUN 45 [...] 80.9 H, Lymph % (Auto) 10.1 L, [place] % (Auto) 7.7, Eos % (Auto) 0.4, [...] evidence of acute pulmonary disease. Reading Location: [facility] Physical Exam Const alert, oriented x3 [...] Signature (if applicable): CC: ~ Signed [facility] Work Phone: 1(833) 261-496807-31-2025 Discharge summary Author Isael Bernabe [facility] Note Date/Time November 30, 2024 9:35 pm [facility] Medical Records Department [address] [place] [address] Emergency Department Summary 11/30/24 MR#: [id number] Acct: [id number] Name: ERIBERTO RICO Rep #:[id number] : [...] was sent, they administeredaspirin, Brilinta, and heparin. 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 Does not have elevation of his white [...] 80.9 H Lymph % (Auto) 10.1 L [place] % (Auto) 7.7 Eos % (Auto) 0.4 [...] (STEMI) myocardial infarction Disposition Disposition: Acute Care Hospital [facility] Discharge Date/Time: 11/30/24 15:21 What to do if you have Problems For any increased pain, shortness of breath, bleeding, nausea or vomiting, chestpain, or any unexpected problems, contact your Primary Care Provider. Call [facility] ([phone]) or report to the closest Emergency Room. Call 911 if necessary. 11/30/242134 <Electronically signed by Isael Bernabe MD> Cosigner Signature (if applicable): CC: Dr. Marycarmen Rodriguez, DO ~ Signed [facility] Work Phone: 1([phone]) 142-691507-31-2025 Progress note Author [facility]ael [facility] Note Date/Time November 30, 2024 9:33 pm [facility] Medical Records Department [address] [place] [address] Quality Report 11/30/241604 MR#: [id number] Acct: [id number] Name: ERIBERTO RICO Rep #:[id number] : [...] Bernabe MD> Date _ Isael Bernabe MD 11/30/24 160 <Electronically signed by Donald Bill > Cosigner Signature (if applicable): Date Donald Bill CC: ~ Signed [facility] Work Phone: 1(775) 811-279907-31-2025 History and physical note Author Abraham Ridley [facility] Note Date/Time November 30, 2024 9:30 pm [facility] Medical Records Department [address] [place] [address] H&P Exam - Hospitalist 11/30/24 1705 MR#: [id number] Acct: [id number] Name: ERIBERTO RICO Rep #:[id number] : 1945 79 From: Abraham inman DO PCP: Dr. Marycarmen Rodriguez, Status:ADM IN Location: ICU CVICU20 3-1 HPI - General General Date of Admission: 11/30/24 Date of Service: 11/30/24 Chief Complaint: STEMI HPI Narrative ERIBERTO RICO, is a 79 M who presented to [facility] on 11/30/2024 as a STEMI alert. Follows with [place] cardiology with complex CAD history, see office [...] STEMI. He was taken emergently to the Senior Database Engineer and coronary angiography revealed a subacute stent [...] room air. No other acute concerns currently. 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 [...] with hyperglycemia: Blood glucose 328 on admit. AbkrE7a from 2022 was 7.7%. Repeat A1c ordered. [...] 75 minutes. Charges/Coding Visit Charges Inpatient E&M: 23104 Init Hosp L3 11/30/242129 <Electronically signed by Abraham Ridley DO> Cosigner Signature (if applicable): CC: Dr. Abraham Ridley, ; Dr. Marycarmen Rodriguez, ~ Signed [facility] Work Phone: 1(270) 278-501907-31-2025 Radiology Diagnostic study [facility]2025 Consult note Author Jose Hay [facility] Note Date/Time November 30, 2024 4:51 pm [facility] Medical Records Department [address] [place] [address] Consultation - Cardiology 11/30/24 1642 MR#: [id number] Acct: [id number] Name: ERIBERTO RICO Rep #:[id number] : [...] infarction. Subsequently a STEMI alert was called. 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 Jose Hay MD; Dr. Marycarmen Rodriguez, DO~ Signed [facility] Work Phone: 1(920) 797-439007-29-2025 Consult note Author Cyndie Frye [facility] Note Date/Time November 28, 2024 12:2 8pm [facility] Medical Records Department [address] [place] [address] Counseling Note - Pharmacy 11/28/24 0920 MR#: [id number] Acct: [id number] Name: ERIBERTO RICO Rep #:[id number] : 1945 79 From: Cyndie Frye PCP: Dr. Marycarmen Rodriguez, Status:ADM EDMUND Y Location: [place] [address] Pharmacy MA Med Reconciliation Pharmacy Service has performed discharge [...] (if applicable): Date CC: ~ Signed [facility] Work Phone: 1(762) 326-112607-28-2025 Discharge summary Author Jose Hay [facility] Note Date/Time November 27, 2024 11:3 5am [facility] Medical Records Department [address] [place] [address] Instructions for Home/Discharge Instructions 11/27/24 1128 MR#: [id number] Acct: [id number] Name: ERIBERTO RICO Rep #:[id number] : [...] Care Provider: Marycarmen Rodriguez Instructions Print Language: Venezuelan Discharge Orders/Prescriptions Prescriptions: New furosemide 80 mg [...] Dr. Marycarmen Rodriguez DO ~ Signed [facility] Work Phone: 1(137) 213-648907-27-2025 Radiology Diagnostic study [facility]07-27-2025 Radiology Diagnostic study [facility]07-27-2025 Radiology Diagnostic study [facility] 11-26-2024 Radiology Diagnostic study [facility]07-27-2025 Radiology Diagnostic study [facility]07-27-2025 Radiology Diagnostic study [facility]07-27-2025 Discharge summary Author Isael Bernabe [facility] Note Date/Time November 26, 2024 9:41 pm [facility] Medical Records Department [address] [facility] [place] [address] Emergency Department Summary 11/26/24 MR#: [id number] Acct: [id number] Name: ERIBERTO RICO Rep #:[id number] : 1945 79 From: Isael Bernabe MD PCP: Dr. Marycarmen Rodriguez, DO Status:REG ER Location: ED HPI HPI [...] presents status post fall with chest heaviness. 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 He was given 1 [place] which he usually takes at home for pain. He was able to ambulate without difficulty. At this point in time, he is motivated for discharge. I do not feel that he requires admission at this time or observation. I feel he can be discharged to follow-upwith his cardiac catheterization tomorrow morning. Patient will continue his [place] at home and follow-up as previously directed. [...] 71.8 H Lymph % (Auto) 16.7 L [place] % (Auto) 9.5 Eos % (Auto) 1.3 [...] IMPRESSION: No acute intracranial process. Reading Location: [facility] Cervical Spine CT 11/26/24 18:03 IMPRESSION: No acute compression deformity, fracture, or subluxation. Moderate multilevel degenerative changes of the cervical spine. Cervical ACDF with interbody spacers spanning C4-C6 without hardware complications. Reading Location: [facility] Chest X-Ray 11/26/24 18:03 IMPRESSION: Negative for edema Reading Location: [facility] Knee X-Ray 11/26/24 18:03 IMPRESSION: Degenerative changes without fracture Reading Location: [facility] Hand X-Ray 11/26/24 18:07 IMPRESSION: Degenerative changes. No visible fracture. Reading Location: [facility] Knee X-Ray 11/26/24 18:07 IMPRESSION: Joint effusion Reading Location: [facility] Management Discussion w/another healthcare provider: Recycler Forklift Driver Truck Driver (Dr. Araujo) Discharge Plan Triage Chief Complaint: [...] with new or worsening symptoms. Print Language: Venezuelan Disposition Disposition: Home, Self Care What to do if you have Problems For any increased pain, shortness of breath, bleeding, nausea or vomiting, chestpain, or any unexpected problems, contact your Primary Care Provider. Call [facility] ([phone]) or report to the closest Emergency Room. Call 911 if necessary. 11/26/242140 <Electronically signed by Isael Bernabe MD> Cosigner Signature (if applicable): CC: Dr. Marycarmen Rodriguez DO ~ Signed [facility] Work Phone: 1(898) [phone] Hospital Discharge instructionsAdditional Instructions Have your cardiac catheterization performed tomorrow as scheduled at 8:30 in the morning. Return with new or worsening symptoms.[facility] Work Phone: 1(194) 146-529407-24-2025 [facility]iology [id number] Radiology Diagnostic study [facility]05-21-2025 Evaluation note* Diagnosis Onset Date Resolution Status Admit Date COPD (chronic obstructive pulmonary disease) chronic September 20 10:13am Diastolic heart failure chronic ay 2024 10:13am Obesity chronic September 20, 2024 10:13am Obstructive sleep apnea chronic [facility] 2024 10:13am Shortness of breath acute October 25, 2024 7:54am Bilateral lower extremity edema it application development manager baylee October 25, 2024 7:54am Chest pain chronic October 25 7:54am Chronic kidney disease, stage 3 it application development manager baylee October 25, 2024 7:54am Coronary artery [...] 31 10:00am Diastolic heart failure chronic [facility] 2024 10:00am Obesity chronic October 31, 2024 10:00am Obstructive sleep apnea chronic J [facility] 2024 10:00am [facility] Work Phone: 1(486) 801-895805-21-2025 Evaluation note* Diagnosis Onset Date Resolution Status Admit Date COPD (chronic obstructive pulmonary disease) chronic September 20 10:13am Diastolic heart failure chronic [facility] 2024 10:13am Obesity chronic September 20, 2024 10:13am Obstructive sleep apnea chronic [facility] 2024 10:13am Shortness of breath acute October 25, 2024 7:54am Bilateral lower extremity edema it application development manager baylee October 25, 2024 7:54am Chest pain chronic October 25 7:54am Chronic kidney disease, stage 3 it application development manager baylee October 25, 2024 7:54am Coronary artery [...] 22, 2024 10:53am Bilateral lower extremity edema it application development manager baylee November 22, 2024 10:53am Chest pain chronic November 22 10:53am Chronic kidney disease, stage 3 it application development manager baylee November 22, 2024 10:53am Essential hypertension chronic Ju ly 2024 10:53am Hyperlipidemia chronic November 22, 2024 10:53am Obesity chronic November 22 10:53am Type 2 diabetes mellitus wit hout complications chronic November 22, 2024 10:53am [facility] Work Phone: 1(525) 548-927205-21-2025 Evaluation note* Diagnosis Onset Date Resolution Status Admit Date COPD (chronic obstructive pulmonary disease) chronic September 20 10:13am Diastolic heart failure chronic M ay 2024 10:13am Obesity chronic September 20, 2024 10:13am Obstructive sleep apnea chronic M ay 2024 10:13am Shortness of breath acute October 25, 2024 7:54am Bilateral lower extremity edema it application development manager baylee October 25, 2024 7:54am Chest pain chronic October 25 7:54am Chronic kidney disease, stage 3 it application development manager baylee October 25, 2024 7:54am Coronary artery [...] 22, 2024 10:53am Bilateral lower extremity edema it application development manager baylee November 22, 2024 10:53am Chest pain chronic November 22 10:53am Chronic kidney disease, stage 3 it application development manager baylee November 22, 2024 10:53am Essential hypertension [...] 2024 4:59pm Chronic kidney disease, stage 3 it application development manager baylee November 30, 2024 4:59pm Coronary artery disease chronic J shannon 2024 4:59pm Dyslipidemia chronic November 30, 025 4:59pm Essential hypertension chronic Ju ly 2024 4:59pm [facility] Work Phone: 1(684) 338-872605-21-2025 Evaluation note* Diagnosis Onset Date Resolution Status [...] acute November 302024 4:59pm Leukocytosis acute November 30 2 025 4:59pm STEMI (ST elevation myocardi al infarction) November 30, 2024 acute November 30, 2024 4:59pm Chest pain chronic November 30 4:59pm Chronic kidney disease chronic Ju ly 2024 4:59pm Chronic kidney disease, stag e 3 chronic November 30, 2024 4:59pm Coronary artery disease chronic J shannon 2024 4:59pm Dyslipidemia chronic November 30 025 4:59pm Essential hypertension chronic Ju ly 2024 4:59pm [facility] Work Phone: 1(282) 988-604005-21-2025 Evaluation note* Diagnosis Onset Date Resolution Status Admit Date COPD (chronic obstructive pulmonary disease) chronic September 20 10:13am Diastolic heart failure chronic [facility] 2024 10:13am Obesity chronic September 20, 2024 10:13am Obstructive sleep apnea chronic [facility] 2024 10:13am Shortness of breath acute October [...] Obstructive sleep apnea chronic J shannon2024 10:00am Presence of stent in coronar y [...] acute November 302024 4:59pm Leukocytosis acute November 30 2 025 4:59pm STEMI (ST elevation myocardial infarction) November 30, 2024 acute October 4:59pm Chest pain chronic November 30 4:59pm Chronic kidney disease chronic Ju ly 2024 4:59pm Chronic kidney disease, stag e 3 chronic November 30, 2024 4:59pm Coronary artery disease chronic J shannon 2024 4:59pm Dyslipidemia chronic November 30 2 025 4:59pm Essential hypertension chronic Ju ly 2024 4:59pm Acute ST elevation myocardia l infarction (STEMI) of inferior wall acute December 02, 2024 8:29pm Diabetes mellitus acute December 02, 2024 8:29pm Chronic kidney disease chronic Au taj 2024 8:29pm Hyperlipidemia chronic December 8:29pm Obesity chronic December 02 8:29pm Obstructive sleep apnea chronic A ugust 2024 8:29pm [facility] Work Phone: 1(155) 808-151603-18-2025 Procedure notey [facility] Pulmonary Services/Neurology [address] [place] [address] MR#: [id number] Acct: [id number] Name: ERIBERTO RICO Rep #:[id number] : 1945 78 From: Zen East DO Referring Dr: Marni Horn DIABETES MANAGER DIABETES MANAGER-C Status: REG CLI Location: PSN Date: Sex: M C PSN 6 Minute Walk Test 6 Minute Walk Test 6 Minute Walk Test: 6 Minute Walk Test PSN:6-Minute Walk Test Start: 07/18/24 06:38 Freq: Status: Active Protocol: RESP.6MINW Document 07/18/24 06:00 [facility] (Rec: 07/18/24 06:47 [facility] [id number]) 6 Minute Walk Test Date Performed 07/18/24 Time Performed 06:00 Height 5 ft 9 in Weight: 230 lb Weight in Pounds 230.[address]: Marni Horn DIABETES MANAGER Assistive device Cane used: Pre-test Oxygen Delivery [...] time. 07/18/24 1032 O> Date _ Zen Brown DO CC: ~ Date Dictated: 07/18/24 103 Date Transcribed: 07/18/241031 Asphalt Blender: Dr. Zen East, DO Signed [facility]03-03-2025 Evaluation note* Diagnosis Onset Date Resolution Status [...] sleep apnea chronic M ay 2024 10:13am [facility] Work Phone: 1(447) 706-121603-03-2025 Evaluation note* Diagnosis Onset Date Resolution Status [...] 25, 2024 7:54am Bilateral lower extremity edema it application development manager baylee October 25, 2024 7:54am Chronic kidney disease, stage 3 it application development manager baylee October 25, 2024 7:54am Coronary artery disease chronic J 2024 7:54am Essential hypertension chronic Ju 2024 7:54am Hyperlipidemia chronic October 25, 2024 7:54am Obesity chronic October 25 7:54am Type 2 diabetes mellitus wit hout complications chronic October 25, 2024 7:54am Chest pain inactive October 25 7:54am [facility] Work Phone: 1(180) 173-185803-03-2025 Evaluation note* Diagnosis Onset Date Resolution Status Admit Date COPD (chronic obstructive pulmonary disease) chronic March 3rd, 20 25 1:10pm Diastolic heart failure chronic M arch [...] 25, 2024 7:54am Bilateral lower extremity edema it application development manager baylee October 25, 2024 7:54am Chest pain chronic October 25 7:54am Chronic kidney disease, stage 3 it application development manager baylee October 25, 2024 7:54am Coronary artery disease chronic J une 2024 7:54am Essential hypertension chronic Ju ne 2024 7:54am Hyperlipidemia chronic October 25, 2024 7:54am Obesity chronic October 25 7:54am Type 2 diabetes mellitus wit hout complications chronic October 25, 2024 7:54am [facility] Work Phone: 1(853) 719-164803-03-2025 Evaluation note* Diagnosis Onset Date Resolution Status [...] 25, 2024 7:54am Bilateral lower extremity edema it application development manager baylee October 25, 2024 7:54am Chest pain chronic October 25 7:54am Chronic kidney disease, stage 3 it application development manager baylee October 25, 2024 7:54am Coronary artery [...] Obstructive sleep apnea chronic J shannon2024 10:00am [facility] Work Phone: 1(688) 947-864703-03-2025 Evaluation note* Diagnosis Onset Date Resolution Status [...] 25, 2024 7:54am Bilateral lower extremity edema it application development manager baylee October 25, 2024 7:54am Chest pain chronic October 25 7:54am Chronic kidney disease, stage 3 it application development manager baylee October 25, 2024 7:54am Coronary artery disease chronic J une 2024 7:54am Essential hypertension chronic 2024 7:54am Hyperlipidemia chronic October 25, 2024 7:54am Obesity chronic October 25 7:54am Type 2 diabetes mellitus wit hout complications chronic October 25, 2024 7:54am Asthma acute October 31, 2024 10:00am Central sleep apnea acute October 31, 2024 10:00am COPD (chronic obstructive pulmonary disease) chronic October 31 10:00am Diastolic heart failure chronic J shannon2024 10:00am Obesity chronic October 31, 2024 10:00am Obstructive sleep apnea chronic J 2024 10:00am [facility] Work Phone: 1(693) 336-938512-16-2024 Evaluation note* Diagnosis Onset Date Resolution Status Admit Date DEAN (dyspnea on exertion) acute April 17, 2024 3:51pm Bilateral lower extremity edema it application development manager baylee April 17, 2024 3:51pm Chronic kidney disease, stage 3 it application development manager baylee April 17, 2024 3:51pm Coronary artery [...] sleep apnea chronic M arch 2024 1:10pm [facility] Work Phone: 1(770) 281-365811-18-2024 Evaluation note* Diagnosis Onset Date Resolution Status Admit Date Bilateral lower extremity edema it application development manager baylee March 20, 2024 10:31am Chronic kidney disease, stage 3 it application development manager baylee March 20, 2024 10:31am Coronary artery disease chronic N ovember 2023 10:31am Essential hypertension chronic No vember 2023 10:31am Hyperlipidemia chronic March 032023 10:31am Obesity chronic March 20, 2024 10:31am Type 2 diabetes mellitus without complications chronic March 032023 10:31am DEAN (dyspnea on exertion) acute April 17, 2024 3:51pm Bilateral lower extremity edema it application development manager baylee April 17, 2024 3:51pm Chronic kidney disease, stage 3 it application development manager baylee April 17, 2024 3:51pm Coronary artery [...] sleep apnea chronic M arch 2024 1:10pm [facility] Work Phone: 1(726) 181-546005-02-[address] Hay [facility] September 01, 2022 9:55am Note Date/Time September 01, 2022 8:37am [facility] [address] [place] [address] Instructions for Home/Discharge Instructions 09/01/22 0835 MR#: [id number] Acct: [id number] Name: ERIBERTO RICO Rep #:[id number] : [...] Dr. Marycarmen Rodriguez DO ~ Signed [facility] Work Phone: 1(379) 202-759508-26-2021 Miscellaneous Notes* Assessment & Plan Note - [...] with any necessary intervention. documented in this [id number] History of Present illness Narrative* Eladio Ingram [...] patient is not nervous/anxious. documented in this [id number] Miscellaneous Notes* Assessment & Plan Note - Fernanda Acuña CNP - 10/09/2020 11:44 AM EDT Associated Problem(s): Coronary artery disease involving bois forte coronary artery of bois forte heart without angina pectoris Multiple previous cardiac catheterizations with intervention. Most recent cardiac caths were performed in 2018, August 03 at [place], and August 18 at [facility] in [place]. 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 The notes from the cath at [facility] indicate that they were able [...] intolerance, and chest pressure. documented in this [id number] History of Present illness Narrative* Fernanda Acuña CNP - 10/09/2020 11:19 AM EDT [facility] [place] [address] [id number] Assessment & Plan: Hypertension Blood pressure mildly [...] without CPAP use. Coronary artery disease involving bois forte coronary artery of bois forte heart without angina pectoris Multiple previous cardiac catheterizations with intervention. Most recent cardiac caths were performed in 2018, August 03 at [place], and August 18 at [facility] in [place]. 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 The notes from the cath at [facility] indicate that they were able [...] re-establish care. He has been following at [place] and [facility] for his cardiology care over the past 4 years. 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 Eriberto has long-standing coronary artery disease and his history is primarily obtained through records from [facility]. Eriberto is uncertain of many of [...] Hypertension Lower leg edema Myocardial infarction (HCC) 2008 Peripheral vascular disease (HCC) Sleep apnea Stroke ([facility]) Testicle swelling Past Surgical History: Procedure Laterality Date CARDIAC CATHETERIZATION N/A 01/04/2015 Left Heart Cath,Stent, EF 60%; Eladio Ingram MD; [facility] [facility] CARDIAC CATHETERIZATION N/A 01/28/2015 Left Heart Cath, EF 60%; Eladio Ingram MD; [facility] CARDIAC CATHETERIZATION N/A 06/18/2015 Left Heart Cath, Right Upper Extremity Angiogram, EF 60%; Eladio Ingram MD; [facility] CARDIAC CATHETERIZATION N/A 03/17/2016 Procedure: Left and Right Heart Cath Poss Stent; Surgeon: Eladio Ingram MD; Location: [facility]; Service: CARDIAC CATHETERIZATION 03/22/2014 EF 60% CARDIAC CATHETERIZATION 06/29/2013 EF 60% CARDIAC CATHETERIZATION 09/08/2012 EF 55% CARDIAC CATHETERIZATION 03/22/2014 EF 60% CARDIAC CATHETERIZATION Right 10/15/2016 Procedure: Left Heart Cath Possible PTCA/Stent; Surgeon: Merritt Arthur MD; [place]: [facility]; Service: CHOLECYSTECTOMY CORONARY ANGIOPLASTY WITH STENT [...] ectopy, no acute changes. 50 minutes spent pinh-dp-coxs with patient Follow Up Ordered: Return for appointment as scheduled for follow up based on test results. Fernanda Acuña CNP * Deisi Mrach RN - 10/09/2020 10:02 AM EDT Review [...] patient is not nervous/anxious. documented in this [id number] NotePatient Outreach (COVAMN) ERIBERTO RICO ([id number]) 1945 M Date Time Provider Department 06/25/20 YAMILETSPETRONA During your visit today, we recorded the following information about you: Allergies As of Date: 06/25/2020 (No Known Allergies) Date Reviewed: 08/19/2018 Reviewed by: Moise (Marcin) MARCIN Mcgraw - Fully Assessed Order(s):SARS-COVID VACCINE 1ST DOSE APPT [24307RKK] Order #: [id number] FUTURE Prescriptions as of 06/25/2020 Sig: CLOPIDOGREL [...] (HCC) [N17.9] 08/15/2018 Coronary artery disease involving bois forte smith*08/15/2018 Stented coronary artery [Z95.5] 08/15/2018 Letter Text Encounter Status:Closed by CHAPITO NAVARRETE on 06/28/20[facility] Consult note Author Jose Hay [facility] Note Date/Time November 30, 2024 4:51 pm [facility] Medical Records Department [address] [place] [address] Consultation - Cardiology 11/30/24 1642 MR#: [id number] Acct: [id number] Name: ERIBERTO RICO Rep #:[id number] : [...] infarction. Subsequently a STEMI alert was called. 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 Marycarmen Rodriguez DO~ Signed [facility] Work Phone: Discharge summary Author Nickie Danielson [facility] Note Date/Time December 02, 2024 2:2 7pm [facility] Medical Records Department [address] [facility] [place] [address] Discharge Summary 12/02/24 1336 MR#: [id number] Acct: [id number] Name: ERIBERTO RICO Rep #:[id number] : 1945 79 From: Nickie Danileson DO PCP: Dr. Marycarmen Rodriguez DO Status:ADM IN Location: [place] [address] Providers Date of Admission: 11/30/24 Date of [...] [facility]. The [...] inferior wall. He was taken emergency to Senior Database Engineer and cardiac catheterization revealed subacute stent thrombosis [...] 78.9 H, Lymph % (Auto) 7.6 L, [place] % (Auto) 12.0 H, Eos % (Auto) [...] abnormality. 2. Age-related senescent changes. Reading Location: [facility] D/C Instructions Discharge Activity: Return to Normal [...] Barlow; Diogenes Sheehan; Cari Shultz; Sherman Rouse; Tiffany John; Jamar Tapia; Chrissy Mccallum; Fletcher Good; Sarah Beth Candelaria; Jdoy Kwon; Fermin José; Min Rogers; Nick Bernard; Zay Alanis; Kristina [...] Self Care Charges/Coding Visit Charges Inpatient E&M: 87786 Disch Hosp >30min 12/02/24 6331 <Electronically signed by Nickie Danielson DO> Cosigner Signature (if applicable): CC: Dr. Jose Hay MD; Dr. Nickie Danielson DO; Dr. Marycarmen Rodriguez DO~ Signed [facility] Work Phone: Evaluation note* Diagnosis Shortness of [...] apnea (adult) (pediatric) Coronary artery disease involving bois forte coronary artery of bois forte heart without angina pectoris [facility] Shortness [facility] breath [facility] Diagnosis Essential hypertension- Primary Unspecified essential hypertension Atherosclerosis of bois forte coronary artery with angina pectoris, unspecified whether bois forte or transplanted heart (HCC) Mixed hyperlipidemia [facility] Diagnosis Chest pain, unspecified type- Primary [facility] Diagnosis Coronary artery disease involving bois forte coronary artery of bois forte heart with angina pectoris (HCC)- Primary [facility] Diagnosis Onset Date Resolution Status Dizziness acute Atherosclerotic heart diseas e bois forte coronary artery w/angina pectoris chronic CHF (congestive heart failure) chronic Essential hypertension chron ic History of coronary artery stent placement August 13, 2017 chronic Hyperlipidemia [facility] Work Phone: Evaluation note* Diagnosis Onset Date Resolution Status Dizziness acute Atherosclerotic heart diseas e bois forte coronary artery w/angina pectoris chronic CHF (congestive heart failure) chronic Essential hypertension chron ic History of coronary artery stent placement August 13, 2017 chronic Hyperlipidemia chronic Dizziness acute DEAN (dyspnea on exertion) ac [place] Palpitations acute CAD (coronary artery disease) chronic CHF (congestive heart failure) chronic Essential hypertension chron ic Hyperlipidemia [facility] Work Phone: Evaluation note* Diagnosis Onset Date Resolution Status Dizziness acute Atherosclerotic heart diseas e bois forte coronary artery w/angina pectoris chronic CHF (congestive heart failure) chronic Essential hypertension chron ic History of coronary artery stent placement August 13, 2017 chronic Hyperlipidemia chronic Dizziness acute DEAN (dyspnea on exertion) [place] Palpitations acute CAD (coronary artery disease) chronic CHF (congestive heart failure) chronic Essential hypertension chron ic Hyperlipidemia chronic DEAN (dyspnea on exertion) ac [place] CAD (coronary artery disease) chronic CHF (congestive heart failure) chronic Essential hypertension chron ic Hyperlipidemia [facility] Work Phone: Evaluation note* Diagnosis Onset Date Resolution Status Dizziness acute DEAN (dyspnea on exertion) ac [place] Palpitations acute CAD (coronary artery disease) chronic CHF (congestive heart failure) chronic Essential hypertension chron ic Hyperlipidemia chronic DEAN (dyspnea on exertion) [place] CAD (coronary artery disease) chronic CHF (congestive heart failure) chronic Essential hypertension chron ic Hyperlipidemia [facility] Work Phone: Evaluation note* Diagnosis Onset Date Resolution Status Abnormal PFT acute 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.9) it application development manager [place] Obstructive sleep apnea it application development manager [place] COVID-19 acute DEAN (dyspnea on exertion) [place] Atherosclerotic heart diseas e bois forte coronary artery w/angina pectoris chronic CHF (congestive heart failure) chronic Essential hypertension chron ic History of coronary artery stent placement August 13, 2017 chronic Hyperlipidemia chronic Abnormal PFT acute COVID-19 acute 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.9) it application development manager [place]lee Obstructive sleep apnea it application development manager [facility] Work Phone: Evaluation note* Diagnosis Onset Date Resolution Status COVID-19 acute DEAN (dyspnea on exertion) [place] Atherosclerotic heart diseas e bois forte coronary artery w/angina pectoris chronic CHF (congestive heart failure) chronic Essential hypertension chron ic History of coronary artery stent placement August 13, 2017 chronic Hyperlipidemia chronic Abnormal PFT acute COVID-19 acute 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.9) it application development manager [place] Obstructive sleep apnea it application development manager [place] [facility] Work Phone: Evaluation note* Diagnosis Onset Date Resolution Status Angina pectoris chronic Chronic kidney disease chron ic Coronary artery disease it application development manager [place]lee Diabetes mellitus chronic Dyslipidemia chronic Essential hypertension chron ic Obesity [facility] Work Phone: Evaluation note* Diagnosis Onset Date Resolution Status Angina pectoris chronic Chronic kidney disease chron ic Coronary artery disease it application development manager [place]lee Diabetes mellitus chronic Dyslipidemia chronic Essential hypertension chron ic Obesity chronic Left-sided weakness acute Chest pain resolved Fatigue acute Syncope acute Coronary artery disease it application development manager baylee Dyslipidemia chronic Essential hypertension chron ic [facility] Work Phone: Evaluation note* Diagnosis Onset Date Resolution Status Left-sided weakness acute Chest pain resolved Fatigue acute Syncope acute Coronary artery disease it application development manager baylee Dyslipidemia chronic Essential hypertension chron ic Angina pectoris chronic Bilateral lower extremity edema chronic Chronic kidney disease, stage 3 chronic Coronary artery disease 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 Hay [facility] September 01, 2022 9:53am Note Date/Time September 01, 2022 9:51am [facility] Medical Records Department [address] [place] [address] Progress Note 09/01/22 0950 MR#: [id number] Acct: [id number] Name: ERIBERTO RICO Rep #:[id number] : 1945 77 From: Jose Hay MD PCP: Dr. Marycarmen Rodriguez, DO Status:ADM EDMUND Location: [place] [address] Progress Note Reports complete resolution of angina. 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 Advance Directives and Living Will [...] Documents on File Type Date Recorded 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 Advance Directives and Livin g Will 10/04/2020 12:00 AM Documents on File Type Date Recorded 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 Advance Directives and Living Will [...] Documents on File Type Date Recorded 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 Advance Directives and Livin g Will 10/15/2020 12:46 PM Documents on File Type Date Recorded 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 Advance Directives and Livin g Will 10/15/2020 12:46 PM Documents on File Type Date Recorded 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 Advance Directives and Livin g [...] Will Yes June 10 4:44pm Power of Director Of Provider Relations Yes June 10, 2021 4:44pm Advance Directive Response Recorded Date/ Time Name of Medical Power of Director Of Provider Relations Jennie- November 16, 2021 1:06pm Advance Directives No August 13, 018 7:02am Living Will Yes November 16, 2021 1:06pm Power of Director Of Provider Relations Yes November 16 1:06pm Advance Directive Response Recorded Date/ Time Advance Directives No August 13 018 6:02am Living Will Yes November 16, 2021 12:06pm Power of Director Of Provider Relations Yes November 16 12:06pm Advance Directive Response Recorded Date/ Time Advance Directives No August 13, 018 7:02am Living Will Yes November 16, 2021 1:06pm Power of Director Of Provider Relations Yes November 16 1:06pm Advance Directive Response Recorded Date/ Time Advance Directives on File Yes August 312022 7:47am Name of Medical Power of Director Of Provider Relations Mike escalera August 31, 2022 7:47am Advance Directives Yes August 31, 2022 7:47am Living Will Yes August 31, 2022 7: 47am Power of Director Of Provider Relations Yes August 31, 2022 7:47am Advance Directive Response Recorded Date/ Time Advance Directives on File Yes August 312022 7:47am Name of Medical Power of Director Of Provider Relations Mike Rico- jw August 31, 2022 7:47am Advance Directives Yes August 31, 2022 7:47am Living Will No September 18, 2022 1 2:11am Power of Director Of Provider Relations No September 18, 2022 12:11am Advance Directive Response Recorded Date/ Time Advance Directives on File Yes August 312022 7:47am Name of Medical Power of Director Of Provider Relations Mike Rico- son August 31, 2022 7:47am Advance Directives on File No Augus t 2022 7:51am Name of Medical Power of Director Of Provider Relations MIKE RICO December 21, 2022 7:51am Advance Directives Yes December 21, 2022 7:51am Living Will Yes December 21 7:51am Power of Director Of Provider Relations Yes December 21 023 7:51am Advance Directive Response Recorded Date/ Time Advance Directives on File No Augus t 2022 7:51am Name of Medical Power of Director Of Provider Relations MIKE RICO December 21, 2022 7:51am Advance Directives Yes December 21, 2022 7:51am Living Will Yes December 21 7:51am Power of Director Of Provider Relations Yes December 21 7:51am Advance Directive Response Recorded Date/ Time Advance Directives Yes December 21, 2022 6:51am Living Will Yes December 21 6:51am Power of Director Of Provider Relations Yes December 21 6:51am Advance Directive Response Recorded Date/ Time Living Will No October 12, 2023 6:54pm Power of Director Of Provider Relations No October 11 6:54pm Advance Directives Yes December 21, 2022 7:51am Advance Directive Response Recorded Date/ Time Advance Directives Yes December 21, 2022 7:51am Advance Directive Response Recorded Date/ Time Do you have a Healthcare Power of Director Of Provider Relations? Yes November 26, 2024 5:44pm Advance Directives Yes December 21, 2022 7:51am Advance Directive Response Recorded Date/ Time Advance Directives on File Yes November 27, 2024 8:44am Living Will Yes November 27, 2024 8:44am Do you have a Healthcare Pow er of Director Of Provider Relations? Yes November 27, 2024 8:44am Name of Medical Power of Director Of Provider Relations Jennie Agarwal er- spouse November 27, 2024 8:44am Advance Directives Yes November 27 8:44am Do you have a Healthcare Pow er of Director Of Provider Relations? Yes November 26, 2024 5:44pm Advance Directive Response Recorded Date/ Time Advance Directives on File Yes November 27, 2024 8:44am Living Will Yes November 27, 2024 8:44am Do you have a Healthcare Pow er of Director Of Provider Relations? Yes November 27, 2024 8:44am Name of Medical Power of Director Of Provider Relations Jennie Popeag er- spouse November 27, 2024 8:44am Advance Directives Yes November 27 8:44am Do you have a Healthcare Pow er of Director Of Provider Relations? Yes November 26, 2024 5:44pm Do you have a Healthcare Pow er of Director Of Provider Relations? Yes November 30, 2024 5:22pm Advance Directive Response Recorded Date/ Time Advance Directives on File Yes November 27, 2024 8:44am Living Will Yes November 27, 2024 8:44am Do you have a Healthcare Pow er of Director Of Provider Relations? Yes November 27, 2024 8:44am Name of Medical Power of Director Of Provider Relations Jennie Agarwal er- spouse November 27, 2024 8:44am Advance Directives Yes November 27 8:44am Do you have a Healthcare Pow er of Director Of Provider Relations? Yes November 26, 2024 5:44pm Do you have a Healthcare Pow er of Director Of Provider Relations? Yes November 30, 2024 5:22pm Do you have a Healthcare Pow er of Director Of Provider Relations? Yes December 02, 2024 8:23pm Reason for Referral Status Reason Specialty Diagnoses / Procedures Referred By Contact Referred To Contact New Request Cardiology Diagnoses Shortness of breath Procedures Echocardiogram complete Elaido Ingram MD [address] [facility] [address] [place] [address] Status Reason Specialty Diagnoses / Procedures Referred By Contact Referred To Contact Closed Cardiology Diagnoses DEAN (dyspnea on exertion) Procedures ECG 12 lead Fernanda Acuña, HAND KNITTER [address] [facility] [place] [address] Specialty Diagnoses / Procedures Referred By Contac t Referred To Contact Radiology Diagnoses Coronary artery disease involving bois 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 LOWER LID LESION RLQ ABD PAIN bleeding from ear, chest pain OVERDUE FOR OV CHEST PAIN CHEST PAIN Reason for Visit Dizziness Atherosclerotic heart disease bois forte coronary artery w/angina pectoris CHF (congestive heart failure) Essential hypertension History of coronary artery stent placement Hyperlipidemia Chief Complaint bleeding from ear, c hest pain OVERDUE FOR OV CHEST PAIN CHEST PAIN 6-8 WK F/U DYSPNEA Reason for Visit Dizziness Atherosclerotic heart disease bois forte coronary artery w/angina pectoris CHF (congestive heart failure) Essential hypertension History of coronary artery stent placement Hyperlipidemia Dizziness DEAN (dyspnea on exertion) Palpitations CAD (coronary artery disease) CHF (congestive heart failure) Essential hypertension Hyperlipidemia Chief Complaint OVERDUE FOR OV CHEST PAIN CHEST PAIN 6-8 WK F/U DYSPNEA Reason for Visit Dizziness Atherosclerotic heart disease bois forte coronary artery w/angina pectoris CHF (congestive heart failure) Essential hypertension History of coronary artery stent placement Hyperlipidemia Dizziness DEAN (dyspnea on exertion) Palpitations CAD (coronary artery disease) CHF (congestive heart failure) Essential hypertension Hyperlipidemia Chief Complaint OVERDUE FOR OV CHEST PAIN CHEST PAIN 6-8 WK F/U DYSPNEA CHEST PAIN 2 M FU E ORDERS Reason for Visit Dizziness Atherosclerotic heart disease bois forte coronary artery w/angina pectoris CHF (congestive heart [...] DEAN (dyspnea on exertion) Atherosclerotic heart disease bois forte coronary artery w/angina pectoris CHF (congestive heart failure) Essential hypertension History of coronary artery stent placement Hyperlipidemia Abnormal PFT COVID-19 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.9) Obstructive sleep apnea Chief Complaint SORE THROAT, COUGH, FEVER, BODY ACHE 5 MO F/U 3 M FU DYSPNEA/SOB Reason for Visit COVID-19 DEAN (dyspnea on exertion) Atherosclerotic heart disease bois forte coronary artery w/angina pectoris CHF (congestive heart [...] CP CVA, CP CVA, CP request by DIABETES MANAGER at [place] [facility] for angina L.L. E-ORDER SYNCOPE Reason for Visit Angina pectoris Chronic kidney disease Coronary artery disease Diabetes mellitus Dyslipidemia Essential hypertension Obesity Left-sided weakness Chest pain Fatigue Syncope Coronary artery disease Dyslipidemia Essential hypertension Chief Complaint CAD Amb Documentation EKG Coronary artery disease Amb Documentation CVA, CP CVA, CP CP ADMIT CVA, CP CVA, CP CVA, CP CVA, CP request by DIABETES MANAGER at [facility] [facility] for angina L.L. E-ORDER SYNCOPE 2 M [...] CP CVA, CP CVA, CP request by DIABETES MANAGER at [place] [facility] for angina L.L. 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 DATE CREATED AUTHOR AUTHOR'S ORGANIZ ATION 12/20/2020 [facility] DATE CREATED AUTHOR AUTHOR'S ORGANIZ ATION 01/11/2021 [facility] DATE CREATED AUTHOR AUTHOR'S ORGANIZ ATION 02/28/2021 [facility] DATE CREATED AUTHOR AUTHOR'S ORGANIZ ATION 04/20/2021 [facility] DATE CREATED AUTHOR AUTHOR'S ORGANIZ ATION 06/22/2021 [facility] DATE CREATED AUTHOR AUTHOR'S ORGANIZ ATION 12/02/2024 [facility] Reason for Visit (unrecogniz ed section and content) Reason Comments Chest Pain SOB Status Reason Specialty Diagnoses / Procedures Referred By Contact Referred To Contact Closed Cardiology Diagnoses DEAN (dyspnea on exertion) Procedures ECG 12 lead Fernanda Acuña, HAND KNITTER [address] [place] [address] Status Reason Specialty Diagnoses / Procedures Referre d By Contact Referred To Contact Closed Cardiology Diagnoses Shortness of breath Procedures Echocardiogram complete w contrast Echocardiogram complete Eladio Ingram MD [address] [facility] [address] [place] [address] Reason Comments Initial Visit (Intake) Specialty Diagnoses / Procedures Referred By Contac t Referred To Contact Cardiology Diagnoses Atherosclerosis of bois forte coronary artery with angina pectoris, unspecified whether bois forte or transplanted heart (HCC) Jennifer, Marycarmen Harrison DO [address] [place] [address] Referral ID Status Reason Start Date Expiration Date V isits Requested Visits Authorized [id number] Closed Specialty Services Required/Krupa ent's Best Interest 10/04/2020 10/04/2021 1 1 Care Teams (unrecognized sec tion and content) Warp Knit Operator Relationship Specialty Start Date End Date Marycarmen Rodriguez, DO [address] [place], [place] [phone] PCP - General Family Medicine 12/17/16 Warp Knit Operator Relationship Specialty Start Date End Date Marycarmen Rodriguez DO [address] [place], [place] [phone] PCP - General Family Medicine 12/17/16 Warp Knit Operator Relationship Specialty Start Date End Date Marycarmen Rodriguez, DO [address] [facility], [place] [phone] PCP - General Family Medicine 12/17/16 Warp Knit Operator Relationship Specialty Start Date End Date Marycarmen Rodriguez, DO [address] [facility], [place] [phone] PCP - General Family Medicine 12/17/16 Team Status: Active Member Role Status Dates Dr. Marycarmen Rodriguez DO Family Provider Active Marycarmen Rodriguez Primary Care Provider Active Team Status: Inactive Member Role Status Dates Dr. Marycarmen Rodriguez DO Primary Care Provider, Referdevyn g Provider Active Luz Elena Mckeon DIABETES MANAGER, DIABETES MANAGER-C Attending Provider Active Team Status: Inactive Member Role Status Dates Dr. Marycarmen Rodriguez DO Primary Care Provider Active Dr. Merritt Persaud MD Attending Provider, Referring Pr lynne Active Team Status: Inactive Member Role Status Dates Dr. Marycarmen Rodriguez DO Primary Care Provider, Referrin g Provider Active Can Robbie PA, PA Attending Provider Active Team Status: Active Member Role Status Dates Dr. Marycarmen Rodriguez DO Primary Care Provider Active Dr. John Palacios MD Attending Provider Active Team Status: Inactive Member Role Status Dates Dr. Marycarmen Rodriguez DO Primary Care Provider Active Luz Elena Mckeon DIABETES MANAGER, DIABETES MANAGER-C Attending Provider Active Team Status: Inactive Member Role Status Dates Dr. Marycarmen Rodriguez DO Primary Care Provider Active Luz Elena Mckeon DIABETES MANAGER, DIABETES MANAGER-C Attending Provider, Referring P sharon Active Team [...] Primary Care Provider Active Luz Elena Mckeon DIABETES MANAGER, DIABETES MANAGER-C Attending Provider, Referring P rovider Active Team [...] Primary Care Provider Active Luz Elena Mckeon DIABETES MANAGER, DIABETES MANAGER-C Attending Provider Active Team Status: Inactive Member [...] 2024 End: April 17, 2024 Gustabo Pérez DIABETES MANAGER, DIABETES MANAGER-C Attending Provider Active S tart: April 17, 2024 End: April 17, 2024 Team Status: Inactive Member Role Status Dates Dr. Marycarmen Rodriguez DO Primary Care Provider Active Start: April 17, 2024 End: April 17, 2024 Gustabo Pérez DIABETES MANAGER, DIABETES MANAGER-C Attending Provider Active S tart: April 17, 2024 End: April 17, 2024 Gustabo Pérez DIABETES MANAGER, DIABETES MANAGER-C Referring Provider Active S tart: April 17, [...] 2024 End: July 03, 2024 Marni Horn DIABETES MANAGER, DIABETES MANAGER-C Attending Provider Active Start: July 03, 2024 End: July 03, 2024 Team Status: Active Member Role Status Dates Dr. Marycarmen Rodriguez DO Primary Care Provider Active Start: July 07, 2024 Marni Horn DIABETES MANAGER, DIABETES MANAGER-C Attending Provider Active Start: July 07, 2024 Marni Horn DIABETES MANAGER, DIABETES MANAGER-C Referring Provider Active Start: July 07, 2024 Team Status: Inactive Member Role Status Dates Dr. Marycarmen Rodriguez DO Primary Care Provider Active Start: July 07, 2024 End: July 07, 2024 Marni Horn DIABETES MANAGER, DIABETES MANAGER-C Attending Provider Active Start: July 07, 2024 End: July 07, 2024 Marni Horn DIABETES MANAGER, DIABETES MANAGER-C Referring Provider Active Start: July 07, 2024 End: July 07, 2024 Team Status: Active Member Role Status Dates Dr. Marycarmen Rodriguez DO Primary Care Provider Active Start: July 17, 2024 Marni Horn DIABETES MANAGER, DIABETES MANAGER-C Attending Provider Active Start: July 17, 2024 Marni Horn DIABETES MANAGER, DIABETES MANAGER-C Referring Provider Active Start: July 17, 2024 Team Status: Active Member Role Status Dates Dr. Marycarmen Rodriguez DO Primary Care Provider Active Start: July 18, 2024 Marni Horn DIABETES MANAGER, DIABETES MANAGER-C Attending Provider Active Start: July 18, 2024 Marni Horn DIABETES MANAGER, DIABETES MANAGER-C Referring Provider Active Start: July 18, 2024 Team Status: Active Member Role Status Dates Dr. Marycarmen Rodriguez DO Primary Care Provider Active Start: July 18, 2024 Marni Horn DIABETES MANAGER, DIABETES MANAGER-C Referring Provider Active Start: July 18, 2024 Marni Horn DIABETES MANAGER, DIABETES MANAGER-C Other Provider Active Start: July 18, 2024 Dr. Zen East DO Attending Provider Active S tart: July 18, 2024 Team Status: Inactive Member Role Status Dates Dr. Marycarmen Rodriguez DO Primary Care Provider Active Start: July 17, 2024 End: July 17, 2024 Marni Horn DIABETES MANAGER, DIABETES MANAGER-C Attending Provider Active Start: July 17, 2024 End: July 17, 2024 Marni Horn DIABETES MANAGER, DIABETES MANAGER-C Referring Provider Active Start: July 17, 2024 End: July 17, 2024 Team Status: Inactive Member Role Status Dates Dr. Marycarmen Rodriguez DO Primary Care Provider Active Start: July 18, 2024 End: July 18, 2024 Marni Horn DIABETES MANAGER, DIABETES MANAGER-C Attending Provider Active Start: July 18, 2024 End: July 18, 2024 Marni Horn DIABETES MANAGER, DIABETES MANAGER-C Referring Provider Active Start: July 18, 2024 End: July 18, 2024 Team Status: Inactive Member Role Status Dates Dr. Marycarmen Rodriguez DO Primary Care Provider Active Start: August 03, 2024 End: August 03, 2024 Marni Horn DIABETES MANAGER, DIABETES MANAGER-C Attending Provider Active Start: August 03, 2024 End: August 03, 2024 Marni Horn DIABETES MANAGER, DIABETES MANAGER-C Referring Provider Active Start: August 03, 2024 [...] 2024 End: September 20, 2024 Maren Olivas DIABETES MANAGER-C Attending Provider Active Start: September 20, 2024 End: September 20, 2024 Maren Olivas NP-C Referring Provider Active Start: September 20, 2024 End: September 20, 2024 Team Status: Active Member Role Status Dates Dr. Marycarmen Rodriguez DO Primary Care Provider Active Start: September 22, 2024 Marni Horn DIABETES MANAGER, DIABETES MANAGER-C Attending Provider Active Start: September 22, 2024 Team Status: Inactive Member Role Status Dates Dr. Marycarmen Rodriguez DO Primary Care Provider Active Start: September 22, 2024 End: September 22, 2024 Marni Horn DIABETES MANAGER, DIABETES MANAGER-C Attending Provider Active Start: September 22, 2024 End: September 22, 2024 Team Status: Inactive Member Role Status Dates Dr. Marycarmen Rodriguez DO Primary Care Provider Active Start: September 29, 2024 End: September 29, 2024 Dr. Marycarmen Rodirguez DO Attending Provider Active Start: September 29, 2024 End: September 29, 2024 Dr. Marycarmen Rodriguez DO Referring Provider Active Start: September 29, 2024 End: September 29, 2024 Team Status: Active Member Role Status Dates Dr. Marycarmen Rodriguez DO Primary Care Provider Active Start: July 17, 2024 Dr. Zen East DO Attending Provider Active S tart: July 17, 2024 Marni Horn DIABETES MANAGER, DIABETES MANAGER-C Referring Provider Active Start: July 17, 2024 Team Status: Inactive Member Role Status Dates Dr. Marycarmen Rodriguez DO Primary Care Provider Active Start: October 18, 2024 End: October 18, 2024 Dr. Brooks Carpenter MD Attending Provider Active Start: October 18, 2024 End: October 18, 2024 Dr. Brooks Carpenter MD Referring Provider Active Start: October 18, 2024 End: October 18, 2024 Gustabo Pérez DIABETES MANAGER, DIABETES MANAGER-C Other Provider Active Start : October 18, 2024 End: October 18, 2024 Team Status: Active Member Role Status Dates Dr. Marycarmen Rodriguez DO Primary Care Provider Active Start: October 18, 2024 Marni Horn DIABETES MANAGER, DIABETES MANAGER-C Attending Provider Active Start: October 18, 2024 Team Status: Inactive Member Role Status Dates Dr. Marycarmen Rodriguez DO Primary Care Provider Active Start: October 25, 2024 End: October 25, 2024 Dr. Marycarmen Rodriguez DO Referring Provider Active Start: October 25, 2024 End: October 25, 2024 Gustabo Pérez DIABETES MANAGER, DIABETES MANAGER-C Attending Provider Active S tart: October 25, 2024 End: October 25, 2024 Team Status: Inactive Member Role Status Dates Dr. Marycarmen Rodriguez DO Primary Care Provider Active Start: October 18, 2024 End: October 18, 2024 Marni Horn DIABETES MANAGER, DIABETES MANAGER-C Attending Provider Active Start: October 18, 2024 [...] 2024 End: July 03, 2024 Marni Horn DIABETES MANAGER, DIABETES MANAGER-C Attending Provider Active Start: July 03, 2024 End: July 03, 2024 Team Status: Inactive Member Role/Relationship Status Dates Dr. Marycarmen Rodriguez DO Primary Care Provider Active Start: July 07, 2024 End: July 07, 2024 Marni Honr DIABETES MANAGER, DIABETES MANAGER-C Attending Provider Active Start: July 07, 2024 End: July 07, 2024 Marni Horn DIABETES MANAGER, DIABETES MANAGER-C Referring Provider Active Start: July 07, 2024 End: July 07, 2024 Team Status: Inactive Member Role/Relationship Status Dates Dr. Marycarmen Rodriguez DO Primary Care Provider Active Start: July 17, 2024 End: July 17, 2024 Marni Horn DIABETES MANAGER, DIABETES MANAGER-C Attending Provider Active Start: July 17, 2024 End: July 17, 2024 Marni Horn DIABETES MANAGER, DIABETES MANAGER-C Referring Provider Active Start: July 17, 2024 End: July 17, 2024 Team Status: Active Member Role/Relationship Status Dates Dr. Marycarmen Rodriguez DO Primary Care Provider Active Start: July 17, 2024 Dr. Zen East DO Attending Provider Active S tart: July 17, 2024 Marni Horn DIABETES MANAGER, DIABETES MANAGER-C Referring Provider Active Start: July 17, 2024 Team Status: Inactive Member Role/Relationship Status Dates Dr. Marycarmen Rodriguez DO Primary Care Provider Active Start: July 18, 2024 End: July 18, 2024 Marni Horn DIABETES MANAGER, DIABETES MANAGER-C Attending Provider Active Start: July 18, 2024 End: July 18, 2024 Marni Horn DIABETES MANAGER, DIABETES MANAGER-C Referring Provider Active Start: July 18, 2024 End: July 18, 2024 Team Status: Active Member Role/Relationship Status Dates Dr. Marycarmen Rodriguez DO Primary Care Provider Active Start: July 18, 2024 Marni Horn DIABETES MANAGER, DIABETES MANAGER-C Referring Provider Active Start: July 18, 2024 Marni Horn DIABETES MANAGER, DIABETES MANAGER-C Other Provider Active Start: July 18, 2024 Dr. Zen East DO Attending Provider Active S tart: July 18, 2024 Team Status: Inactive Member Role/Relationship Status Dates Dr. Marycarmen Rodriguez DO Primary Care Provider Active Start: August 03, 2024 End: August 03, 2024 Marni Horn DIABETES MANAGER, DIABETES MANAGER-C Attending Provider Active Start: August 03, 2024 End: August 03, 2024 Marni Horn DIABETES MANAGER, DIABETES MANAGER-C Referring Provider Active Start: August 03, 2024 [...] 2024 End: September 20, 2024 Maren Olivas DIABETES MANAGER-C Attending Provider Active Start: September 20, 2024 End: September 20, 2024 Maren Olivas NP-C Referring Provider Active Start: September 20, 2024 End: September 20, 2024 Team Status: Inactive Member Role/Relationship Status Dates Dr. Marycarmen Rodriguez DO Primary Care Provider Active Start: September 22, 2024 End: September 22, 2024 Marni Horn NP, DIABETES MANAGER-C Attending Provider Active Start: September 22, 2024 [...] End: October 18, 2024 Gustabo Pérez NP, DIABETES MANAGER-C Other Provider Active Start : October 18, 2024 End: October 18, 2024 Team Status: Inactive Member Role/Relationship Status Dates Dr. Marycarmen Rodriguez DO Primary Care Provider Active Start: October 18, 2024 End: October 18, 2024 Marni Horn NP, DIABETES MANAGER-C Attending Provider Active Start: October 18, 2024 End: October 18, 2024 Team Status: Inactive Member Role/Relationship Status Dates Dr. Marycarmen Rodriguez DO Primary Care Provider Active Start: October 25, 2024 End: October 25, 2024 Dr. Marycarmen Rodriguez DO Referring Provider Active Start: October 25, 2024 End: October 25, 2024 Gustabo Pérez DIABETES MANAGER, DIABETES MANAGER-C Attending Provider Active S tart: October 25, 2024 End: October 25, 2024 Team Status: Active Member Role/Relationship Status Dates Dr. Marycarmen Rodriguez DO Primary Care Provider Active Start: October 26, 2024 Marni Horn DIABETES MANAGER, DIABETES MANAGER-C Attending Provider Active Start: October 26, 2024 Marni Horn DIABETES MANAGER, DIABETES MANAGER-C Referring Provider Active Start: October 26, 2024 [...] 2024 End: October 26, 2024 Marni Horn DIABETES MANAGER, DIABETES MANAGER-C Attending Provider Active Start: October 26, 2024 End: October 26, 2024 Marni Horn DIABETES MANAGER, DIABETES MANAGER-C Referring Provider Active Start: October 26, 2024 End: October 26, 2024 Team Status: Inactive Member Role/Relationship Status Dates Dr. Marycarmen Rodriguez DO Primary Care Provider Active Start: August 03, 2024 End: August 03, 2024 Marni Horn DIABETES MANAGER, DIABETES MANAGER-C Attending Provider Active Start: August 03, 2024 End: August 03, 2024 Marni Horn DIABETES MANAGER, DIABETES MANAGER-C Referring Provider Active Start: August 03, 2024 [...] End: September 22, 2024 Marni Horn NP, DIABETES MANAGER-C Attending Provider Active Start: September 22, 2024 [...] End: October 18, 2024 Gustabo Pérez NP, DIABETES MANAGER-C Other Provider Active Start : October 18, 2024 End: October 18, 2024 Team Status: Inactive Member Role/Relationship Status Dates Dr. Marycarmen Rodriguez DO Primary Care Provider Active Start: October 18, 2024 End: October 18, 2024 Marni Horn NP, DIABETES MANAGER-C Attending Provider Active Start: October 18, 2024 End: October 18, 2024 Team Status: Inactive Member Role/Relationship Status Dates Dr. Marycarmen Rodriguez DO Primary Care Provider Active Start: October 25, 2024 End: October 25, 2024 Dr. Marycarmen Rodriguez DO Referring Provider Active Start: October 25, 2024 End: October 25, 2024 Gustabo Pérez NP, DIABETES MANAGER-C Attending Provider Active S tart: October 25, 2024 End: October 25, 2024 Team Status: Inactive Member Role/Relationship Status Dates Dr. Marycarmen Rodriguez DO Primary Care Provider Active Start: October 26, 2024 End: October 26, 2024 Marni Horn DIABETES MANAGER, DIABETES MANAGER-C Attending Provider Active Start: October 26, 2024 End: October 26, 2024 Marni Horn DIABETES MANAGER, DIABETES MANAGER-C Referring Provider Active Start: October 26, 2024 [...] Active Start: November 10, 2024 Gustabo Pérez DIABETES MANAGER, DIABETES MANAGER-C Attending Provider Active S tart: November 10, 2024 Gustabo Pérez DIABETES MANAGER, DIABETES MANAGER-C Referring Provider Active S tart: November 10, 2024 Team Status: Active Member Role/Relationship Status Dates Dr. Marycarmen Rodriguez DO Primary Care Provider Active Start: November 10, 2024 Dr. Lance Rodriguez MD Attending Provider Active S tart: November 10, 2024 Gustabo Pérez DIABETES MANAGER, DIABETES MANAGER-C Referring Provider Active S tart: November 10, [...] Provider Active Start: November 13, 2024 Gustabo H Roof DIABETES MANAGER, DIABETES MANAGER-C Referring Provider Active S tart: November 13, 2024 Gustabo H Roof DIABETES MANAGER, DIABETES MANAGER-C Other Provider Active Start : November 13, 2024 Dr. Jose Hay MD Attending Provider Active Start: November 13, 2024 Team Status: Inactive Member Role/Relationship Status Dates Dr. Marycarmen Rodriguez DO Primary Care Provider Active Start: November 10, 2024 End: November 10, 2024 Gustabo H Roof DIABETES MANAGER, DIABETES MANAGER-C Attending Provider Active S tart: November 10, 2024 End: November 10, 2024 Gustabo H Roof DIABETES MANAGER, DIABETES MANAGER-C Referring Provider Active S tart: November 10, [...] 2024 End: November 22, 2024 Gustabo Pérez DIABETES MANAGER, DIABETES MANAGER-C Attending Provider Active S tart: November 22, [...] Active Start: November 22, 2024 Gustabo Pérez DIABETES MANAGER, DIABETES MANAGER-C Attending Provider Active S tart: November 22, 2024 Gustabo Pérez DIABETES MANAGER, DIABETES MANAGER-C Referring Provider Active S tart: November 22, [...] 2024 End: November 22, 2024 Gustabo Pérez DIABETES MANAGER, DIABETES MANAGER-C Attending Provider Active S tart: November 22, 2024 End: November 22, 2024 Gustabo Pérez DIABETES MANAGER, DIABETES MANAGER-C Referring Provider Active S tart: November 22, [...] End: September 22, 2024 Marni Horn NP, DIABETES MANAGER-C Attending Provider Active Start: September 22, 2024 [...] 2024 End: October 18, 2024 Gustabo Pérez DIABETES MANAGER, DIABETES MANAGER-C Other Provider Active Start : October 18, 2024 End: October 18, 2024 Team Status: Inactive Member Role/Relationship Status Dates Dr. Marycarmen Rodriguez DO Primary Care Provider Active Start: October 18, 2024 End: October 18, 2024 Marni Horn DIABETES MANAGER, DIABETES MANAGER-C Attending Provider Active Start: October 18, 2024 End: October 18, 2024 Team Status: Inactive Member Role/Relationship Status Dates Dr. Marycarmen Rodriguez DO Primary Care Provider Active Start: October 25, 2024 End: October 25, 2024 Dr. Marycarmen Rodriguez DO Referring Provider Active Start: October 25, 2024 End: October 25, 2024 Gustabo Pérez DIABETES MANAGER, DIABETES MANAGER-C Attending Provider Active S tart: October 25, 2024 End: October 25, 2024 Team Status: Inactive Member Role/Relationship Status Dates Dr. Marycarmen Rodriguez DO Primary Care Provider Active Start: October 26, 2024 End: October 26, 2024 Marni Horn DIABETES MANAGER, DIABETES MANAGER-C Attending Provider Active Start: October 26, 2024 End: October 26, 2024 Marni Horn DIABETES MANAGER, DIABETES MANAGER-C Referring Provider Active Start: October 26, 2024 End: October 26, 2024 Team Status: Inactive Member Role/Relationship Status Dates Dr. Marycarmen Rodriguez DO Primary Care Provider Active Start: October 31, 2024 End: October 31, 2024 Dr. Marycarmen Rodriguez DO Referring Provider Active Start: October 31, 2024 End: October 31, 2024 Maren Olivas DIABETES MANAGER-C Attending Provider Active Start: October 31, 2024 [...] 2024 End: November 10, 2024 Gustabo Pérez DIABETES MANAGER, DIABETES MANAGER-C Attending Provider Active S tart: November 10, 2024 End: November 10, 2024 Gustabo Pérez DIABETES MANAGER, DIABETES MANAGER-C Referring Provider Active S tart: November 10, 2024 End: November 10, 2024 Team Status: Active Member Role/Relationship Status Dates Dr. Marycarmen Rodriguez DO Primary Care Provider Active Start: November 10, 2024 Dr. Lance Rodriguez MD Attending Provider Active S tart: November 10, 2024 Gustabo Pérez DIABETES MANAGER, DIABETES MANAGER-C Referring Provider Active S tart: November 10, 2024 Team Status: Inactive Member Role/Relationship Status Dates Dr. Marycarmen Rodriguez DO Primary Care Provider Active Start: November 10, 2024 End: November 10, 2024 Maren Olivas NP-C Attending Provider Active Start: November 10, 2024 End: November 10, 2024 Maren Olivas DIABETES MANAGER-C Referring Provider Active Start: November 10, 2024 End: November 10, 2024 Team Status: Active Member Role/Relationship Status Dates Dr. Marycarmen Rodriguez DO Primary Care Provider Active Start: November 13, 2024 Gustabo Pérez DIABETES MANAGER, DIABETES MANAGER-C Referring Provider Active S tart: November 13, 2024 Gustabo Pérez DIABETES MANAGER, DIABETES MANAGER-C Other Provider Active Start : November 13, [...] 2024 End: November 22, 2024 Gustabo Pérez DIABETES MANAGER, DIABETES MANAGER-C Attending Provider Active S tart: November 22, 2024 End: November 22, 2024 Team Status: Inactive Member Role/Relationship Status Dates Dr. Marycarmen Rodriguez DO Primary Care Provider Active Start: November 22, 2024 End: November 22, 2024 Gustabo Pérez DIABETES MANAGER, DIABETES MANAGER-C Attending Provider Active S tart: November 22, 2024 End: November 22, 2024 Gustabo Pérez DIABETES MANAGER, DIABETES MANAGER-C Referring Provider Active S tart: November 22, [...] End: December 02, 2024 Dr. Abraham Ridley , Admit Provider Active Start: November 30, 2024 [...] 30, 2024 End: December 02, 2024 Dr. Tiffany John MD Other Provider Active Start : [...] Start: November 30, 2024 Dr. Abraham Ridley , Admit Provider Active Start: November 30, 2024 [...] tart: December 01, 2024 Dr. Nickie Danielson , Other Provider Active Start : December 01, 2024 Team Status: Active Member Role/Relationship Status Dates Dr. Marycarmen Rodriguez DO Primary Care Provider Active Start: December 01, 2024 Iseal Bernabe MD Emergency Provider Active Star t: [...] Provider Active Start: December 02, 2024 Dr. Tiffany John MD Other Provider Active Start : [...] Other Provider Active Start: December 02, 2024 Team Status: Active Member Role/Relationship Status Dates Dr. Marycarmen Rodriguez DO Primary Care Provider Active Start: December 02, 2024 Dr. Rasheed Canela MD Emergency Provider Active Sta rt: December 02, 2024 Dr. Abraham Ridley DO Admit Provider Active Start: December 02, 2024 Dr. Abraham Ridley DO Attending Provider Active Start: December 02, 2024 Dr. Mickey Simpson MD Referring Provider Active Start: December 02, 2024 Goals [...] BE BASED ON THE PRIMARY CLINICAL RECORDS. [facility]. provides no warranty or guarantee of the accuracy or completeness of information in this document.
--- NOTE | 2024-12-03 05:55 | EKG12_ITS ---
Test Reason : AM EKG Blood Pressure : */* mmHG Vent. Rate : 68 BPM Atrial Rate : 68 BPM P-R Int : 198 ms QRS Dur : 98 ms QT Int : 442 ms P-R-T Axes : 72 -20 -48 degrees QTcB Int : 469 ms Normal sinus rhythm Inferior infarct , recent Abnormal ECG When compared with ECG of 02-Dec-2024 09:36, MANUAL COMPARISON REQUIRED DATA IS UNCONFIRMED Confirmed by NAOMIE PALOMO, PARVEZ ([id number]), editor managing newspaper MARÍA AMBROSIO ([id number]) on 12/04/2024 8:30:02 AM Referred By: Mickey Simpson Confirmed By: PARVEZ AKBAR MD
[2024-12-03 07:43] LABS: Hematocrit 31.8 % (40-54); Hemoglobin 10.3 g/dL (13.0-16.5); Immature Granulocytes Count 0.050 X10^3/uL (0.0-0.0); Mean Corp Hgb Conc 32.4 g/dL (32-36); Mean Corpuscular Volume 90.3 fL (80-94); Mean Platelet Vol. 12.4 fl (6.2-12.0); NRBC Flagged by Analyzer 0 % (0-5); Platelet Count 104 K/mm3 (150-450); RBC Distribution Width CV 14.2 % (11.6-14.6); RBC Distribution Width SD 46.0 fl (35.1-43.9); Red Blood Count 3.52 M/mm3 (4.6-6.2); White Blood Count 9.1 K/mm3 (4.4-11.0)
[2024-12-03 07:47] LABS: Mucous, Urine 0 SEEN /hpf (<or=2+); Red Blood Cells-Urine 0 SEEN /hpf (0-5); Squamous Epithelial Cells - UA 0 SEEN /hpf (0-5)
[2024-12-03 07:57] LABS: Color, Urine Yellow (Yellow); Glucose, Dipstick Normal (Normal); Ketone-Dipstick Negative (Negative); Leukocyte Esterase-Dipstick Negative /ul (Negative); Nitrite-Dipstick Negative (Negative); Occult Blood-Urine 10 /ul (Negative); Protein-Dipstick 15 mg/dl (Negative); Specific Gravity, Urine 1.015 (1.002-1.030); Urine Bilirubin Dipstick Negative (Negative)
[2024-12-03 09:02] LABS: AST(SGOT) 134 U/L (<=37); Alanine Aminotransfer ALT/SGPT 47 U/L (<=46); Albumin, Serum 3.4 g/dL (3.4-4.8); Alkaline Phosphatase 94 U/L (40-129); Anion Gap 15 (5-15); BUN 53 mg/dL (4-19); BUN/Creat Ratio 20.6 RATIO (10-20); Calcium,Total 8.9 mg/dL (7.6-11.0); Carbon Dioxide 18.7 mmol/L (21.0-32.0); Chloride 100 mmol/L (98-108); Estimated Creatinine Clearance 28.22 ml/min (50-250); Globulin 2.8 g/dL (2.2-4.2); Glucose 154 mg/dL (70-99); Magnesium 2.5 mg/dL (1.5-2.2); Potassium 3.7 mmol/L (3.3-5.1)
[2024-12-03] MEDS: TICAGRELOR 90 MG TABLET PO ×2 (10:21→21:16)
[2024-12-03] MEDS: Magnesium Chloride 64 MG Delay Rel.Tablet 128 MG PO ×2 (10:22→21:16)
[2024-12-03] MEDS: Metoprolol(XL)Succ 25 MG Tablet PO (10:23)
[2024-12-03] MEDS: Cholecalciferol (VIT D3) 25 MCG TABLET (1,000 UNITS) PO (10:23)
[2024-12-03] MEDS: 0.9% Saline Lock 10 ML Syringe IV (12:23)
--- NOTE | 2024-12-03 12:41 | CON.PCM.CA_ITS ---
Documented by User: Dr. Mickey Simpson MD 12/03/24 16:19 Assessment & Plan Assessment/Plan (1) History of acute inferior wall KS: (2) Coronary artery vasospasm: PLAN: - Patient with recent acute thrombotic inferior STEMI, that was complicated with distal PLV dissection that was treated with 2 overlapping stents. - Patient came back with acute chest pain with EKG changes suggestive of another inferior STEMI, cardiac cath as listed above showed patent stents in the RCA in addition to patent stents in the PLV with mild disease in the PDA and mild in- stent restenosis in the RCA. - Patient on aspirin, Brilinta, high potency statins, metoprolol will continue he is already on Imdur however his blood pressure is softer today will cut down Imdur from 60 twice daily to 30 mg p.o. daily. (3) CHF (congestive heart failure): QUALIFIERS: Heart failure chronicity: acute on chronic Heart failure type: diastolic Qualified Code(s): I50.33 - Acute on chronic diastolic (congestive) heart failure PLAN: - Patient with recent echo showed EF of 45 to 50% with wall motion normalities secondary to recent acute inferolateral STEMI. - LVEDP done yesterday showed LVEDP of 23 mmHg - patient was discharged off diuresis given CKD. - Will restart Lasix 40 twice daily, will add Jardiance 10 mg p.o. daily given underlying diabetes and for kidney protection. - We recommend nephrology consultation. (4) Dyslipidemia: PLAN: - On statins, will continue. HPI Consult Data Date of Consult: 12/03/24 HPI Narrative Reason for Consultation: STEMI HPI Narrative: GERRY GARCIA, is a 79 M who presents active chest pain with ECg changes suggestive of STEMI. Patient recently had acute in-stent restenosis that led to acute inferior STEMI that was fixed on 11/30/2024, he initially had his RCA fixed for in-stent restenosis on 11/27/2024. He was discharged yesterday with aspirin Brilinta statins beta-jeffrey and rest of medical therapy he went to a wedding during which she had another episode of chest pain they called EMS and EKG showed some changes suggestive of another episode of STEMI after which the patient was brought into the [facility] urgent cardiac catheterization was performed via left radial artery that showed patent stents, elevated LVEDP. Patient today denies any active chest pain he feels more short of breath which is suggestive of CHF secondary to the underlying elevated filling pressure. Recent echo showed no regional wall motion normalities with drop in EF to 45- 50% with mild RV dilation could be secondary to RV infarct. Will restart diuresis given the patient acute kidney injury on top of CKD he was discharged off diuresis. Also was not on any JOSELO or ARB secondary to [facility] Medical History Anemia Diabetes mellitus Chronic kidney disease Shortness of breath Unstable angina Fatigue Syncope Left-sided weakness History of COVID-19 Presence of stent in coronary artery (~08/31/22) Dyslipidemia Coronary artery disease Angina pectoris Abnormal PFT Chest heaviness Palpitations DEAN (dyspnea on exertion) Dizziness Leg pain Cough Exposure to COVID-19 virus Nonhealing nonsurgical wound with fat layer exposed Laceration without foreign body of scalp, subsequent encounter Acute left-sided weakness Essential hypertension CHF (congestive heart failure) History of melanoma Obesity (BMI 35.0-39.9 without comorbidity) CAD (coronary artery disease) 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.9) COPD (chronic obstructive pulmonary disease) TIA (transient ischemic attack) Obstructive sleep apnea Chronic kidney disease, stage 3 Atherosclerotic heart disease hughes coronary artery w/angina pectoris Type 2 diabetes mellitus without complications Hyperlipidemia Obesity Home Medications ?Medication ?Instructions ?Recorded ?Last Taken ?Type aspirin 81 mg tablet,delayed 81 mg PO DAILY@0800 healt h 01/21/17 10/11/23 History release maintenance mirtazapine 15 mg tablet (Remeron) 15 mg PO QHS sleep 09/21/18 10/11/23 History cyanocobalamin (vitamin B-12) 1,000 mcg PO DAILY vitam in ##0 06/01/19 10/11/23 History 1,000 mcg capsule magnesium oxide 400 mg (241.3 mg 800 mg PO DAILY SUPPL EMENT 08/01/21 10/11/23 History magnesium) tablet cetirizine 10 mg tablet 10 mg PO DAILY PRN Allergic 09/16/21 10/11/23 History Reaction cholecalciferol (vitamin D3) [address] 10/11/23 History mcg (1,000 unit) tablet fluoxetine 40 mg capsule 80 mg PO DAILY DEPRESSION 90 days 09/16/21 10/11/23 History #180 caps acetaminophen 325 mg tablet 650 mg PO Q6H PRN Pain 1-1 0/10/12/23 Unknown History glimepiride 4 mg tablet 4 mg PO QDAY diabetes Unknown History atorvastatin 40 mg tablet 40 mg PO QHS CHOLESTEROL #90 tabs 06/14/24 Unknown Rx losartan 100 mg tablet 100 mg PO DAILY blood pressu re #90 06/14/24 Unknown Rx Held on 12/02/24. tabs Instructions: Until instructed to restart nitroglycerin 0.4 mg sublingual 0.4 mg sublingual Q5-1 5M PRN CHEST 06/14/24 Unknown Rx tablet PAIN #25 tabs pantoprazole 40 mg tablet,delayed 40 mg PO DAILY GERD #90 tabs 06/14/24 Unknown Rx release potassium chloride 20 mEq 60 meq (3 x 20 mEq) PO BID 0 06/14/24 Unknown Rx tablet,extended release(part/cryst) supplement #180 ta bs Held on 12/02/24. Instructions: Until instructed to restart spironolactone 50 mg tablet 50 mg PO DAILY diuretic #9 0 tabs 06/14/24 Unknown Rx Held on 12/02/24. Instructions: Resume on 12/04/24. amlodipine 5 mg tablet 5 mg PO QPM blood pressure 0 10/25/24 Unknown History isosorbide mononitrate 60 mg 60 mg PO BID heart #90 TA BLETS 10/25/24 Unknown Rx tablet,extended release 24 hr metolazone 2.5 mg tablet 2.5 mg PO QDAY diuretic 10/02 09/24 Unknown History Held on 12/02/24. Instructions: Resume on 12/04/24. metoprolol succinate 25 mg 25 mg PO DAILY blood pressu re #30 10/25/24 Unknown Rx tablet,extended release 24 hr tabs hydrocodone-acetaminophen 5-325mg 1 tab PO TID PRN jennifer n 11/22/24 11/27/24 History 5mg-325mg furosemide 80 mg tablet 80 mg PO DAILY #30 tabs 11/01 12/25 Unknown Rx Held on 12/02/24. Instructions: Resume on 12/04/24. ticagrelor 90 mg tablet (Brilinta) 90 mg PO BID #60 ta bs 12/02/24 Unknown Rx Allergy/AdvReac Type Severity Reaction Status Date / Time No Known Allergies Allergy Verified 11/26/24 17:43 Family History Father Parkinsons disease Prostate cancer Mother Osteoporosis Surgical History Presence of coronary angioplasty implant and graft (11/27/24) History of tympanostomy tube placement History of percutaneous transluminal coronary angioplasty (08/18/18) History of herniorrhaphy Hx of cholecystectomy History of tonsillectomy History of prostatectomy Social History household members: spouse and none Smoking Status: Former smoker quit date: 05/03/98 pack-years: 50 how long ago did patient quit smokin years ago alcohol intake: never substance use type: does not use caffeine: Yes Type: coffee and tea Number of servings: 6 Physical Exam Narrative General: Alert, oriented x3, central obesity, in mild respiratory distress HEENT: Normocephalic, normal vision, normal EOM. Neck: Normal JVD, no carotid Bruit, no thyromegaly , no lymphadenopathy. Chest wall: Normal shape, non tender. Cardiac: Normal rate and rhythm, no rubs, gallops or murmurs noted. Respiratory: Fine bibasilar rales. Abdomen: Nondistended, nontender, no ascites or masses or organomegaly noted, normal bowel sounds. Extremities: Normal pulsations, no edema, normal strength and muscle mass. Neurological: Gross CN examination is normal, Normal power in all extremities. Objective Data Vital Signs: Vital Signs Temp Pulse Resp BP Pulse Ox O2 Del Method O2 Flow Rate 97.8 F 73 22 H 111/73 96 Room Air 2 12/03/24 12:16 12/03/24 12:16 12/03/24 12:16 12/03/24 12:16 12/03/24 12:16 12/03/24 12:16 12/03/24 07:07 Oxygen Flow Rate (L/min) 2 Oxygen Delivery Method Room Air Weight: 239 lb 13.807 oz Body Mass Index (BMI) 35.4 Intake & Output: Intake and Output for Last 24 Hours 12/01/24 12/02/24 12/03/24 23:59 23:59 23:59 Output Total 750 / 750 Balance -750 / -750 Lab / Micro Data 12/04/24 05:02 12/03/24 07:36 Labs: Laboratory Results - last 24 hr 12/02/24 20:19: WBC 12.7 H, RBC 3.81 L, Hgb 11.1 L, Hct 34.1 L, MCV 89.5, MCH 29.1, MCHC 32.6, RDW Std Deviation 45.8 H, RDW Coeff of Adrian 14.1, Plt Count 134 L, MPV 12.8 H, Immature Gran % (Auto) 0.600, Neut % (Auto) 76.7 H, Lymph % (Auto) 8.9 L, Antelope % (Auto) 12.7 H, Eos % (Auto) 0.8, Baso % (Auto) 0.3, A bsolute Neuts (auto) 9.8 H, Absolute Lymphs (auto) 1.13, Nucleated RBC % 0, Differential Comment SCANNED, Platelet Estimate SLT DEC, PT 14.6, INR 1.1, APTT 31.6, Sodium 131 L, Potassium 4.6, Chloride 96 L, Carbon Dioxide 20.5 L, Anion Gap 14, BUN 52 H, Creatinine 2.90 H, Estim Creat Clear Calc 25.31 L, Est GFR (MDRD) Non-Af 21 L, BUN/Creatinine Ratio 18.0, Glucose 175 H, Calcium 9.1, T roponin T High Sens > 08893 H* D 12/02/24 20:29: Activated Clotting Time 245 H 12/02/24 22:43: Troponin T Hi Sens 2 Hr > 19705 H* 12/03/24 01:17: Troponin T Hi Sens 4Hr > 79558 H* 12/03/24 06:14: POC Glucose 140 H 12/03/24 07:20: Urine Color Yellow, Urine Clarity Clear, Urine pH 6.0, Ur Specific [place] 1.015, Urine Protein 15 H, Urine Glucose (UA) Normal, Urine Ketones Negative, Urine Occult Blood 10 H, Urine Nitrite Negative, Urine Bilirubin Negative, Urine Urobilinogen Normal, Ur Leukocyte Esterase Negative, Urine RBC 0 SEEN, Urine WBC 0 SEEN, Ur Squamous Epith Cells 0 SEEN, Urine Bacteria 0 SEEN, Urine Mucus 0 SEEN 12/03/24 07:36: WBC 9.1, RBC 3.52 L, Hgb 10.3 L, Hct 31.8 L, MCV 90.3, MCH 29.3, MCHC 32.4, RDW Std Deviation 46.0 H, RDW Coeff of Adrian 14.2, Plt Count 104 L, MPV 12.4 H, Immature Gran % (Auto) 0.600, Neut % (Auto) 75.5 H, Lymph % (Auto) 10.5 L, Antelope % (Auto) 11.4 H, Eos % (Auto) 1.8, Baso % (Auto) 0.2, Absolute Neuts (auto) 6.9, Absolute Lymphs (auto) 0.95, Nucleated RBC % 0, Sodium 134, Potassium 3.7, Chloride 100, Carbon Dioxide 18.7 L, Anion Gap 15, BUN 53 H, C reatinine 2.58 H, Estim Creat Clear Calc 28.22 L, Est GFR (MDRD) Non-Af 25 L, B UN/Creatinine Ratio 20.6 H, Glucose 154 H, Calcium 8.9, Phosphorus 3.4, M agnesium 2.5 H, Total Bilirubin 1.27, AST 134 H, ALT 47, Alkaline Phosphatase 94, Total Protein 6.3, Albumin 3.4, Globulin 2.8, Albumin/Globulin Ratio 1.2 Cardiology Labs/Tests 12/02/24 20:19: WBC 12.7 H, RBC 3.81 L, Hgb 11.1 L, Hct 34.1 L, MCV 89.5, MCH 29.1, MCHC 32.6, Plt Count 134 L, MPV 12.8 H, Immature Gran % (Auto) 0.600, Neut % (Auto) 76.7 H, Lymph % (Auto) 8.9 L, Antelope % (Auto) 12.7 H, Eos % (Auto) 0.8, Baso % (Auto) 0.3, Absolute Neuts (auto) 9.8 H, Nucleated RBC % 0, PT 14.6, INR 1.1, APTT 31.6, Sodium 131 L, Potassium 4.6, Chloride 96 L, Carbon Dioxide 20.5 L, Anion Gap 14, BUN 52 H, Creatinine 2.90 H, Est GFR (MDRD) Non-Af 21 L, BUN/Creatinine Ratio 18.0, Glucose 175 H, Calcium 9.1 12/03/24 07:20: Urine Color Yellow, Urine Clarity Clear, Urine pH 6.0, Ur Specific [place] 1.015, Urine Protein 15 H, Urine Glucose (UA) Normal, Urine Ketones Negative, Urine Occult Blood 10 H, Urine Nitrite Negative, Urine Bilirubin Negative, Urine Urobilinogen Normal, Ur Leukocyte Esterase Negative, Urine RBC 0 SEEN, Urine WBC 0 SEEN 12/03/24 07:36: WBC 9.1, RBC 3.52 L, Hgb 10.3 L, Hct 31.8 L, MCV 90.3, MCH 29.3, MCHC 32.4, Plt Count 104 L, MPV 12.4 H, Immature Gran % (Auto) 0.600, Neut % (Auto) 75.5 H, Lymph % (Auto) 10.5 L, Antelope % (Auto) 11.4 H, Eos % (Auto) 1.8, Baso % (Auto) 0.2, Absolute Neuts (auto) 6.9, Nucleated RBC % 0, Sodium 134, Potassium 3.7, Chloride 100, Carbon Dioxide 18.7 L, Anion Gap 15, BUN 53 H, C reatinine 2.58 H, Est GFR (MDRD) Non-Af 25 L, BUN/Creatinine Ratio 20.6 H, G lucose 154 H, Calcium 8.9, Phosphorus 3.4, Magnesium 2.5 H, Total Bilirubin 1.27 Rhythm: EKG: ECHO: Stress Test: Cardiac Cath: PCI: CT Surgery: Holter monitor: EPS: PPM: CXR: Chest CT Scan: Documented by User: Dr. Marcin Araujo MD 12/04/24 06:47 Assessment & Plan Assessment/Plan (1) History of acute inferior wall KS: (2) Coronary artery vasospasm: (3) CHF (congestive heart failure): QUALIFIERS: Heart failure chronicity: acute on chronic Heart failure type: diastolic Qualified Code(s): I50.33 - Acute on chronic diastolic (congestive) heart failure (4) Dyslipidemia: HPI Consult Data Date of Consult: 12/04/24 [facility] Medical History Anemia Diabetes mellitus Chronic kidney disease Shortness of breath Unstable angina Fatigue Syncope Left-sided weakness History of COVID-19 Presence of stent in coronary artery (~08/31/22) Dyslipidemia Coronary artery disease Angina pectoris Abnormal PFT Chest heaviness Palpitations DEAN (dyspnea on exertion) Dizziness Leg pain Cough Exposure to COVID-19 virus Nonhealing nonsurgical wound with fat layer exposed Laceration without foreign body of scalp, subsequent encounter Acute left-sided weakness Essential hypertension CHF (congestive heart failure) History of melanoma Obesity (BMI 35.0-39.9 without comorbidity) CAD (coronary artery disease) 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.9) COPD (chronic obstructive pulmonary disease) TIA (transient ischemic attack) Obstructive sleep apnea Chronic kidney disease, stage 3 Atherosclerotic heart disease hughes coronary artery w/angina pectoris Type 2 diabetes mellitus without complications Hyperlipidemia Obesity Home Medications ?Medication ?Instructions ?Recorded ?Last Taken ?Type aspirin 81 mg tablet,delayed 81 mg PO DAILY@0800 healt h 01/21/17 10/11/23 History release maintenance mirtazapine 15 mg tablet (Remeron) 15 mg PO QHS sleep 09/21/18 10/11/23 History cyanocobalamin (vitamin B-12) 1,000 mcg PO DAILY vitam in ##0 06/01/19 10/11/23 History 1,000 mcg capsule magnesium oxide 400 mg (241.3 mg 800 mg PO DAILY SUPPL EMENT 08/01/21 10/11/23 History magnesium) tablet cetirizine 10 mg tablet 10 mg PO DAILY PRN Allergic 09/16/21 10/11/23 History Reaction cholecalciferol (vitamin D3) [address] 10/11/23 History mcg (1,000 unit) tablet fluoxetine 40 mg capsule 80 mg PO DAILY DEPRESSION 90 days 09/16/21 10/11/23 History #180 caps acetaminophen 325 mg tablet 650 mg PO Q6H PRN Pain 1-1 10/12/23 Unknown History glimepiride 4 mg tablet 4 mg PO QDAY diabetes 11/18/ 24 Unknown History atorvastatin 40 mg tablet 40 mg PO QHS CHOLESTEROL #90 tabs 06/14/24 Unknown Rx losartan 100 mg tablet 100 mg PO DAILY blood pressu re #90 06/14/24 Unknown Rx Held on 12/02/24. tabs Instructions: Until instructed to restart nitroglycerin 0.4 mg sublingual 0.4 mg sublingual Q5-1 5M PRN CHEST 06/14/24 Unknown Rx tablet PAIN #25 tabs pantoprazole 40 mg tablet,delayed 40 mg PO DAILY GERD #90 tabs 06/14/24 Unknown Rx release potassium chloride 20 mEq 60 meq (3 x 20 mEq) PO BID 0 06/14/24 Unknown Rx tablet,extended release(part/cryst) supplement #180 ta bs Held on 12/02/24. Instructions: Until instructed to restart spironolactone 50 mg tablet 50 mg PO DAILY diuretic #9 0 tabs 06/14/24 Unknown Rx Held on 12/02/24. Instructions: Resume on 12/04/24. amlodipine 5 mg tablet 5 mg PO QPM blood pressure 0 10/25/24 Unknown History isosorbide mononitrate 60 mg 60 mg PO BID heart #90 TA BLETS 10/25/24 Unknown Rx tablet,extended release 24 hr metolazone 2.5 mg tablet 2.5 mg PO QDAY diuretic 10/02 09/24 Unknown History Held on 12/02/24. Instructions: Resume on 12/04/24. metoprolol succinate 25 mg 25 mg PO DAILY blood pressu re #30 10/25/24 Unknown Rx tablet,extended release 24 hr tabs hydrocodone-acetaminophen 5-325mg 1 tab PO TID PRN jennifer n 11/22/24 11/27/24 History 5mg-325mg furosemide 80 mg tablet 80 mg PO DAILY #30 tabs 11/01 12/25 Unknown Rx Held on 12/02/24. Instructions: Resume on 12/04/24. ticagrelor 90 mg tablet (Brilinta) 90 mg PO BID #60 ta bs 12/02/24 Unknown Rx Allergy/AdvReac Type Severity Reaction Status Date / Time No Known Allergies Allergy Verified 11/26/24 17:43 Family History Father Parkinsons disease Prostate cancer Mother Osteoporosis Surgical History Presence of coronary angioplasty implant and graft (11/27/24) History of tympanostomy tube placement History of percutaneous transluminal coronary angioplasty (08/18/18) History of herniorrhaphy Hx of cholecystectomy History of tonsillectomy History of prostatectomy Social History household members: spouse and none Smoking Status: Former smoker quit date: 05/03/98 pack-years: 50 how long ago did patient quit smokin years ago alcohol intake: never substance use type: does not use caffeine: Yes Type: coffee and tea Number of servings: 6 Risk Stratification Risk Stratification Applicable: No Lab / Micro Data 12/04/24 05:02 12/03/24 07:36
--- NOTE | 2024-12-03 15:48 | PN.HOSP_ITS ---
Reason for Visit Chief Complaint: Chest Pain with STEMI alert. Subjective Subjective Patient reports he will still intermittently get some chest discomfort though not quite like it had been, has been having shortness of breath, notes that this has been worsening over the past couple of months, does not think he is retaining fluid but does note he has been off of his Lasix Objective Data Objective Data Vital Signs: Vital Signs Temp Pulse Resp BP Pulse Ox O2 Del Method O2 Flow Rate 97.8 F 73 22 H 111/73 96 Room Air 2 12/03/24 12:16 12/03/24 12:16 12/03/24 12:16 12/03/24 12:16 12/03/24 12:16 12/03/24 12:16 12/03/24 07:07 Oxygen Flow Rate (L/min) 2 Oxygen Delivery Method Room Air Weight: 108.8 kg Body Mass Index (BMI) 35.4 Intake & Output: Intake and Output for Last 24 Hours 12/01/24 12/02/24 12/03/24 23:59 23:59 23:59 Output Total 1000 / 1000 Balance -1000 / -1000 Lab / Micro Data 12/03/24 07:36 12/03/24 07:36 Labs: Laboratory Results - last 24 hr 12/02/24 20:19: WBC 12.7 H, RBC 3.81 L, Hgb 11.1 L, Hct 34.1 L, MCV 89.5, MCH 29.1, MCHC 32.6, RDW Std Deviation 45.8 H, RDW Coeff of Adrian 14.1, Plt Count 134 L, MPV 12.8 H, Immature Gran % (Auto) 0.600, Neut % (Auto) 76.7 H, Lymph % (Auto) 8.9 L, [place] % (Auto) 12.7 H, Eos % (Auto) 0.8, Baso % (Auto) 0.3, A bsolute Neuts (auto) 9.8 H, Absolute Lymphs (auto) 1.13, Nucleated RBC % 0, Differential Comment SCANNED, Platelet Estimate SLT DEC, PT 14.6, INR 1.1, APTT 31.6, Sodium 131 L, Potassium 4.6, Chloride 96 L, Carbon Dioxide 20.5 L, Anion Gap 14, BUN 52 H, Creatinine 2.90 H, Estim Creat Clear Calc 25.31 L, Est GFR (MDRD) Non-Af 21 L, BUN/Creatinine Ratio 18.0, Glucose 175 H, Calcium 9.1, T roponin T High Sens > [id number] H* D 12/02/24 20:29: Activated Clotting Time 245 H 12/02/24 22:43: Troponin T Hi Sens 2 Hr > [id number] H* 12/03/24 01:17: Troponin T Hi Sens 4Hr > [id number] H* 12/03/24 06:14: POC Glucose 140 H 12/03/24 07:20: Urine Color Yellow, Urine Clarity Clear, Urine pH 6.0, Ur Specific [place] 1.015, Urine Protein 15 H, Urine Glucose (UA) Normal, Urine Ketones Negative, Urine Occult Blood 10 H, Urine Nitrite Negative, Urine Bilirubin Negative, Urine Urobilinogen Normal, Ur Leukocyte Esterase Negative, Urine RBC 0 SEEN, Urine WBC 0 SEEN, Ur Squamous Epith Cells 0 SEEN, Urine Bacteria 0 SEEN, Urine Mucus 0 SEEN 12/03/24 07:36: WBC 9.1, RBC 3.52 L, Hgb 10.3 L, Hct 31.8 L, MCV 90.3, MCH 29.3, MCHC 32.4, RDW Std Deviation 46.0 H, RDW Coeff of Adrian 14.2, Plt Count 104 L, MPV 12.4 H, Immature Gran % (Auto) 0.600, Neut % (Auto) 75.5 H, Lymph % (Auto) 10.5 L, [place] % (Auto) 11.4 H, Eos % (Auto) 1.8, Baso % (Auto) 0.2, Absolute Neuts (auto) 6.9, Absolute Lymphs (auto) 0.95, Nucleated RBC % 0, Sodium 134, Potassium 3.7, Chloride 100, Carbon Dioxide 18.7 L, Anion Gap 15, BUN 53 H, C reatinine 2.58 H, Estim Creat Clear Calc 28.22 L, Est GFR (MDRD) Non-Af 25 L, B UN/Creatinine Ratio 20.6 H, Glucose 154 H, Calcium 8.9, Phosphorus 3.4, M agnesium 2.5 H, Total Bilirubin 1.27, AST 134 H, ALT 47, Alkaline Phosphatase 94, Total Protein 6.3, Albumin 3.4, Globulin 2.8, Albumin/Globulin Ratio 1.2 12/03/24 12:10: POC Glucose 226 H Physical Exam Narrative General: Alert, oriented, no apparent distress HEENT: Atraumatic, normocephalic Eyes: Anicteric, normal conjunctiva, extraocular movements grossly intact Neck: Supple Respiratory: Does appear to have some increased respiratory effort however lungs sound clear to auscultation Cardiovascular: Regular rate and rhythm GI: nontender, Extremities: Trace lower extremity edema Musculoskeletal: Moving all extremities Neuro: No overt focal neurological deficits Skin: No rashes appreciated Psych: Cooperative Assessment & Plan Assessment/Plan (1) Coronary artery disease: PLAN: Plan # Recent STEMI -Was emergently taken to the [facility] due to a STEMI. Emergent cath showed subacute stent thrombosis in the proximal RCA with percutaneous revascularization and PCI with KENDALL to proximal RCA. Thrombus embolized to right posterior lateral ventricle branch which was treated with balloon angioplasty and placement of 2 drug-eluting stents with DEXTER III flow restored. -Patient was transition from Plavix to Brilinta with aspirin and statin, metoprolol and isosorbide mononitrate continued -Echo during that admission showed mild left ventricular hypertrophy with mildly reduced left ventricular ejection fraction of 50% with basal and mid lateral wall akinesis and basal inferoseptal hypokinesis as well as basal inferior hypokinesis and grade 1 diastolic dysfunction, mild RV dilation with preserved function, no valvular abnormalities and a small epicardial fat pad - Patient ultimately was discharged 12/02 due to his insistence as he was feeling better and wanted to go to his granddaughter's wedding. While at his granddaughter's wedding he developed the symptoms again, patient was another STEMI alert later that evening on 12/02 and went emergently to the [facility] however no intervention was needed or warranted it was felt that this was an area vasospasm - Patient on telemetry in PCU - Appreciate cardiology management recommendations - Earlier patient's blood pressure was only 90 systolic so his metoprolol and isosorbide mononitrate are slightly timewise to try to avoid hypotension - Continue to monitor and provide symptomatic care # Recurrent rectal bleeding - Patient intermittently has some bleeding when he wipes - This has been off and on and was also noted last hospitalization - No significant blood or blood mixed with stool or toilet bowl per patient, hemoglobin similar to what it was 12/01 when it was 10.6 - Continue to monitor # CKD stage IV - Last admission patient had an SUSAN, patient's creatinine improved slightly but then this a.m. was improved to 2.58 - Did receive contrast for cath so will need to monitor this closely #Type 2 diabetes mellitus -Glucose checks and sliding scale insulin #Hx of CAD -w/ previous stenting as above -Continue Brilinta, metoprolol, Imdur, amlodipine was added per cardiology last admission - Losartan was discontinued last admission given patient's kidney function #GERD -Continue PPI #Depression/anxiety -Continue home medications #DVT ppx: Heparin subcu Ramonita Herron MD Charges/Coding Visit Charges Inpatient E&M: 10510 Subs Hosp L2
[2024-12-03] MEDS: Heparin Injection (Vial) 5,000 UNIT/ML VIAL 5000 UNIT SC (21:16)
[2024-12-03] MEDS: Senna/Docusate Sodium 1 Tablet 2 TABLET PO (21:16)
[2024-12-03] MEDS: HYDROcodone Bitartrate/Apap 5/325 Tablet PO (21:17)
[2024-12-04] VITALS (8 sets, daily range): BP systolic 118–143; BP diastolic 76–82; PULSE 65–84; RESP 14–20; TEMP 36.6–37.2; O2SAT 93–98; BMI 34.7
[2024-12-04] MEDS: 0.9% Saline Lock 10 ML Syringe IV ×2 (03:30→10:17)
[2024-12-04 06:16] LABS: Hematocrit 31.5 % (40-54); Hemoglobin 10.5 g/dL (13.0-16.5); Immature Granulocytes Count 0.060 X10^3/uL (0.0-0.0); Mean Corp Hgb Conc 33.3 g/dL (32-36); Mean Corpuscular Volume 87.7 fL (80-94); Mean Platelet Vol. 13.7 fl (6.2-12.0); NRBC Flagged by Analyzer 0 % (0-5); Platelet Count 126 K/mm3 (150-450); RBC Distribution Width CV 13.7 % (11.6-14.6); RBC Distribution Width SD 43.8 fl (35.1-43.9); Red Blood Count 3.59 M/mm3 (4.6-6.2); White Blood Count 9.7 K/mm3 (4.4-11.0)
[2024-12-04 06:49] LABS: Anion Gap 19 (5-15); BUN 49 mg/dL (4-19); BUN/Creat Ratio 19.4 RATIO (10-20); Calcium,Total 9.2 mg/dL (7.6-11.0); Carbon Dioxide 21.4 mmol/L (21.0-32.0); Chloride 96 mmol/L (98-108); Estimated Creatinine Clearance 28.47 ml/min (50-250); Glucose 140 mg/dL (70-99); Potassium 3.1 mmol/L (3.3-5.1)
--- NOTE | 2024-12-04 07:25 | PN.CARD_ITS ---
Subjective Subjective Patient seen and evaluated. Sleeping. No events overnight. Objective Data Vital Signs: Vital Signs Temp Pulse Resp BP Pulse Ox O2 Del Method O2 Flow Rate 98.8 F 65 16 125/79 H 93 Room Air 2 12/04/24 03:27 12/04/24 03:33 12/04/24 03:33 12/04/24 03:27 12/04/24 03:33 12/04/24 03:35 12/03/24 07:07 Oxygen Flow Rate (L/min) 2 Oxygen Delivery Method Room Air Weight: 234 lb 12.677 oz Body Mass Index (BMI) 34.7 Intake & Output: Intake and Output for Last 24 Hours 12/02/24 12/03/24 12/04/24 23:59 23:59 23:59 Intake Total 240 / 240 Output Total 2090 / 3290 2300 / 2300 Balance -2090 / -3050 -0 / -2060 Lab / Micro Data 12/04/24 05:02 12/04/24 05:02 Labs: Laboratory Results - last 24 hr 12/03/24 07:20: Urine Color Yellow, Urine Clarity Clear, Urine pH 6.0, Ur Specific [place] 1.015, Urine Protein 15 H, Urine Glucose (UA) Normal, Urine Ketones Negative, Urine Occult Blood 10 H, Urine Nitrite Negative, Urine Bilirubin Negative, Urine Urobilinogen Normal, Ur Leukocyte Esterase Negative, Urine RBC 0 SEEN, Urine WBC 0 SEEN, Ur Squamous Epith Cells 0 SEEN, Urine Bacteria 0 SEEN, Urine Mucus 0 SEEN 12/03/24 07:36: WBC 9.1, RBC 3.52 L, Hgb 10.3 L, Hct 31.8 L, MCV 90.3, MCH 29.3, MCHC 32.4, RDW Std Deviation 46.0 H, RDW Coeff of Adrian 14.2, Plt Count 104 L, MPV 12.4 H, Immature Gran % (Auto) 0.600, Neut % (Auto) 75.5 H, Lymph % (Auto) 10.5 L, [place] % (Auto) 11.4 H, Eos % (Auto) 1.8, Baso % (Auto) 0.2, Absolute Neuts (auto) 6.9, Absolute Lymphs (auto) 0.95, Nucleated RBC % 0, Sodium 134, Potassium 3.7, Chloride 100, Carbon Dioxide 18.7 L, Anion Gap 15, BUN 53 H, C reatinine 2.58 H, Estim Creat Clear Calc 28.22 L, Est GFR (MDRD) Non-Af 25 L, B UN/Creatinine Ratio 20.6 H, Glucose 154 H, Calcium 8.9, Phosphorus 3.4, M agnesium 2.5 H, Total Bilirubin 1.27, AST 134 H, ALT 47, Alkaline Phosphatase 94, Total Protein 6.3, Albumin 3.4, Globulin 2.8, Albumin/Globulin Ratio 1.2 12/03/24 12:10: POC Glucose 226 H 12/03/24 16:45: POC Glucose 156 H 12/03/24 21:12: POC Glucose 153 H 12/04/24 05:02: WBC 9.7, RBC 3.59 L, Hgb 10.5 L, Hct 31.5 L, MCV 87.7, MCH 29.2, MCHC 33.3, RDW Std Deviation 43.8, RDW Coeff of Adrian 13.7, Plt Count 126 L, MPV 13.7 H, Immature Gran % (Auto) 0.600, Neut % (Auto) 73.9 H, Lymph % (Auto) 11.1 L, [place] % (Auto) 11.9 H, Eos % (Auto) 2.2, Baso % (Auto) 0.3, Absolute Neuts (auto) 7.1, Absolute Lymphs (auto) 1.07, Nucleated RBC % 0, Sodium 137, P otassium 3.1 L, Chloride 96 L, Carbon Dioxide 21.4, Anion Gap 19 H, BUN 49 H, C reatinine 2.53 H, Estim Creat Clear Calc 28.47 L, Est GFR (MDRD) Non-Af 25 L, BUN/Creatinine Ratio 19.4, Glucose 140 H, Calcium 9.2 12/04/24 06:01: POC Glucose 147 H Cardiology Labs/Tests 12/03/24 07:20: Urine Color Yellow, Urine Clarity Clear, Urine pH 6.0, Ur Specific [place] 1.015, Urine Protein 15 H, Urine Glucose (UA) Normal, Urine Ketones Negative, Urine Occult Blood 10 H, Urine Nitrite Negative, Urine Bilirubin Negative, Urine Urobilinogen Normal, Ur Leukocyte Esterase Negative, Urine RBC 0 SEEN, Urine WBC 0 SEEN 12/03/24 07:36: WBC 9.1, RBC 3.52 L, Hgb 10.3 L, Hct 31.8 L, MCV 90.3, MCH 29.3, MCHC 32.4, Plt Count 104 L, MPV 12.4 H, Immature Gran % (Auto) 0.600, Neut % (Auto) 75.5 H, Lymph % (Auto) 10.5 L, [place] % (Auto) 11.4 H, Eos % (Auto) 1.8, Baso % (Auto) 0.2, Absolute Neuts (auto) 6.9, Nucleated RBC % 0, Sodium 134, Potassium 3.7, Chloride 100, Carbon Dioxide 18.7 L, Anion Gap 15, BUN 53 H, C reatinine 2.58 H, Est GFR (MDRD) Non-Af 25 L, BUN/Creatinine Ratio 20.6 H, G lucose 154 H, Calcium 8.9, Phosphorus 3.4, Magnesium 2.5 H, Total Bilirubin 1.27 12/04/24 05:02: WBC 9.7, RBC 3.59 L, Hgb 10.5 L, Hct 31.5 L, MCV 87.7, MCH 29.2, MCHC 33.3, Plt Count 126 L, MPV 13.7 H, Immature Gran % (Auto) 0.600, Neut % (Auto) 73.9 H, Lymph % (Auto) 11.1 L, [place] % (Auto) 11.9 H, Eos % (Auto) 2.2, Baso % (Auto) 0.3, Absolute Neuts (auto) 7.1, Nucleated RBC % 0, Sodium 137, P otassium 3.1 L, Chloride 96 L, Carbon Dioxide 21.4, Anion Gap 19 H, BUN 49 H, C reatinine 2.53 H, Est GFR (MDRD) Non-Af 25 L, BUN/Creatinine Ratio 19.4, Glucose 140 H, Calcium 9.2 Rhythm: EKG: ECHO: Stress Test: Cardiac Cath: PCI: CT Surgery: Holter monitor: EPS: PPM: CXR: Chest CT Scan: Physical Exam Const alert, oriented x3 and no apparent distress General Appearance: cooperative HEENT hearing grossly normal bilaterally Head and Scalp: atraumatic Eyes EOMs intact bilaterally Neck General: normal visual inspection Chest inspection of chest normal and palpation of chest normal Resp normal respiratory effort Auscultation: clear to auscultation bilaterally Cardio regular rate, regular rhythm, S1 normal heart sound and S2 normal heart sound Jugular Venous Distention: JVD GI normal to inspection, nondistended, normoactive bowel sounds Extremity normal capillary refill and no pedal edema Peripheral Pulses: Yes pulses 2+ throughout and femoral pulses present Skin no rashes or lesions noted Neuro oriented x3 and CN's II-XII intact bilaterally Psych Appearance: grossly normal and appropriate Assessment & Plan Assessment/Plan (1) History of acute inferior wall CO: PLAN: Patient underwent cardiac catheterization and the previously placed stent was noted to be patent. (2) Coronary artery vasospasm: PLAN: - Patient with recent acute thrombotic inferior STEMI, that was complicated with distal PLV dissection that was treated with 2 overlapping stents. - Patient came back with acute chest pain with EKG changes suggestive of another inferior STEMI, cardiac cath as listed above showed patent stents in the RCA in addition to patent stents in the PLV with mild disease in the PDA and mild in- stent restenosis in the RCA. The stents were all noted to be patent. I suspect that the EKG changes were secondary to the akinetic inferior wall with Q waves and presenting with ST elevation. - Patient on aspirin, Brilinta, high potency statins, metoprolol will continue all the above including his isosorbide. Will also add Ranexa 500 mg twice a day We will like to ambulate him around today and see how he does by the afternoon. (3) CHF (congestive heart failure): QUALIFIERS: Heart failure type: diastolic Heart failure chronicity: acute on chronic Qualified Code(s): I50.33 - Acute on chronic diastolic (congestive) heart failure PLAN: - Patient with recent echo showed EF of 45 to 50% with wall motion normalities secondary to recent acute inferolateral STEMI. - LVEDP done yesterday showed LVEDP of 23 mmHg - patient was discharged off diuresis given CKD. - Will restart but with Lasix 40 once daily, will add Jardiance 10 mg p.o. daily given underlying diabetes and for kidney protection. - We recommend nephrology consultation. This can also be done as an outpatient. (4) Dyslipidemia: PLAN: - On statins, will continue.
[2024-12-04] MEDS: TICAGRELOR 90 MG TABLET PO ×2 (08:53→22:25)
[2024-12-04] MEDS: Cholecalciferol (VIT D3) 25 MCG TABLET (1,000 UNITS) PO (08:54)
[2024-12-04] MEDS: Metoprolol(XL)Succ 25 MG Tablet PO (08:54)
[2024-12-04] MEDS: Magnesium Chloride 64 MG Delay Rel.Tablet 128 MG PO ×2 (08:55→22:25)
[2024-12-04] MEDS: Senna/Docusate Sodium 1 Tablet 2 TABLET PO ×2 (08:56→22:26)
[2024-12-04] MEDS: Heparin Injection (Vial) 5,000 UNIT/ML VIAL 5000 UNIT SC ×2 (09:05→22:25)
--- NOTE | 2024-12-04 09:45 | EKG12_ITS ---
Test Reason : ARRYTHMIA Blood Pressure : */* mmHG Vent. Rate : 90 BPM Atrial Rate : 90 BPM P-R Int : 188 ms QRS Dur : 100 ms QT Int : 326 ms P-R-T Axes : 63 -17 81 degrees QTcB Int : 398 ms Critical Test Result: STEMI Normal sinus rhythm Inferior infarct (cited on or before 03-Dec-2024) recent ACUTE VT / STEMI Confirmed by NAOMIE PALOMO, PARVEZ ([id number]), movie editor MARÍA AMBROSIO ([id number]) on 12/06/2024 7:33:14 AM Referred By: Mickey Simpson Confirmed By: PARVEZ AKBAR MD
--- NOTE | 2024-12-04 10:57 | PCM.PN.HOSP ---
Reason for Visit Chief Complaint: Chest Pain with STEMI alert. Subjective Subjective Saw patient at bedside this morning. Patient was mildly fatigued appearing but otherwise laying back comfortably in bed in no acute distress. Noted that he continues to have intermittent chest discomfort with mild shortness of breath, though it has been improved from previous days. No other new concerns at this time. Shortly after I saw the patient, nursing staff noted to me that patient was in wide-complex ventricular tachycardia and was nauseous with vomiting. I returned to the bedside to evaluate the patient. He was actively vomiting into a vomitus bag and appeared pale. On telemetry, he was noted to have a run of approximately 30 beats of V. tach. Spontaneously resolved and EKG showed normal sinus rhythm with heart rate around 90. Notably EKG continued to show mild ST elevations in inferior leads but was stable from previous, so no concern for active STEMI. Dr. Araujo came to the bedside to evaluate the patient and recommended repleting potassium as the potassium level was 3.1 this morning, with continued close monitoring. Objective Data Objective Data Vital Signs: Vital Signs Temp Pulse Resp BP Pulse Ox O2 Del Method O2 Flow Rate 97.9 F 84 20 H 143/82 H 98 Room Air 2 12/04/24 08:30 12/04/24 09:43 12/04/24 09:43 12/04/24 09:43 12/04/24 09:43 12/04/24 09:43 12/04/24 08:07 Oxygen Flow Rate (L/min) 2 Oxygen Delivery Method Room Air Weight: 106.5 kg Body Mass Index (BMI) 34.7 Intake & Output: Intake and Output for Last 24 Hours 12/02/24 12/03/24 12/04/24 23:59 23:59 23:59 Intake Total 240 / 240 Output Total 2090 / 3290 2300 / 2300 Balance -2090 / -3050 -2060 / -0 Lab / Micro Data 12/04/24 05:02 12/04/24 05:02 Labs: Laboratory Results - last 24 hr 12/03/24 12:10: POC Glucose 226 H 12/03/24 16:45: POC Glucose 156 H 12/03/24 21:12: POC Glucose 153 H 12/04/24 05:02: WBC 9.7, RBC 3.59 L, Hgb 10.5 L, Hct 31.5 L, MCV 87.7, MCH 29.2, MCHC 33.3, RDW Std Deviation 43.8, RDW Coeff of Adrian 13.7, Plt Count 126 L, MPV 13.7 H, Immature Gran % (Auto) 0.600, Neut % (Auto) 73.9 H, Lymph % (Auto) 11.1 L, [place] % (Auto) 11.9 H, Eos % (Auto) 2.2, Baso % (Auto) 0.3, Absolute Neuts (auto) 7.1, Absolute Lymphs (auto) 1.07, Nucleated RBC % 0, Sodium 137, Potassium 3.1 L, Chloride 96 L, Carbon Dioxide 21.4, Anion Gap 19 H, BUN 49 H, Creatinine 2.53 H, Estim Creat Clear Calc 28.47 L, Est GFR (MDRD) Non-Af 25 L, BUN/Creatinine Ratio 19.4, Glucose 140 H, Calcium 9.2 12/04/24 06:01: POC Glucose 147 H Physical Exam Const alert, oriented x3 and no apparent distress Constitutional Narrative: Elderly male, class II obesity, mildly fatigued appearing but otherwise laying back comfortably in bed, conversing normally, in no acute distress. General Appearance: cooperative and comfortable HEENT normocephalic, head/scalp atraumatic, hearing grossly normal bilaterally, nasal mucous membranes and turbinates normal and moist oral mucous membranes Eyes PERRL, EOMs intact bilaterally and conjunctivae normal Neck full ROM Chest inspection of chest normal Resp normal respiratory effort, normal air movement, no use of accessory muscles and clear to auscultation bilaterally Resp Narrative: Breathing comfortably on room air at rest. Mildly diminished breath sounds in lung bases but otherwise no wheezing or crackles noted. Stable. Cardio regular rate, regular rhythm, no murmurs and peripheral pulses 2+ throughout GI normal to inspection, nondistended, normoactive bowel sounds, soft to palpation, non-tender and non-distended Back/Spine normal ROM Extremity normal to inspection, full ROM and no pedal edema Skin no rashes or lesions noted Psych mental status grossly normal Assessment & Plan Assessment/Plan (1) STEMI (ST elevation myocardial infarction): PLAN: Plan Patient is a 79-year-old male who presented [facility] ED on 12/02/2024 as a STEMI alert. 1. Recent history of acute inferior wall AL with persistent EKG changes; episode of ventricular tachycardia; history of CAD with stenting, chronic HFrEF, hypertension, hyperlipidemia ? Cardiology following. Patient with complex recent medical history. In short, had stent placed to proximal RCA on 11/27. Presented with STEMI on 11/30 and emergent cath showed subacute stent thrombosis at the proximal RCA s/p balloon angioplasty, along with thrombus embolization to the right posterior lateral ventricular branch s/p 2 new drug-eluting stents. Plavix was discontinued and Brilinta was started along with baby aspirin. Discharged midday on 12/02 but presented again as a STEMI alert on the evening of 12/02. Per cardiology, suspect his mild chronic ST elevations are secondary to recent inferior wall infarction. Low likelihood of coronary vasospasm. Patient did have episode of ventricular tachycardia of about 30 beats on morning of 12/04. Potassium low so is being repleted aggressively as below. Per cardiology, will hold off on antiarrhythmic therapy for now. Continue Brilinta, aspirin, statin, metoprolol, nitrate and Ranexa. Okay to restart home Lasix on 12/04 and will start Jardiance as well per cardiology. Continue cardiac monitoring. 2. SUSAN on CKD stage IIIb, improving ? Creatinine 2.90 on admit. Baseline is around 1.9. Creatinine peaked at 3.16 on 12/01 and then began downtrending, so patient was discharged on 12/02 with plan to hold Lasix and follow-up outpatient BMP. Creatinine is steadily downtrending, most recent creatinine 2.53 on 12/04. Resuming home Lasix and starting Jardiance on 12/04 as above. Continue to monitor daily BMP and urine output. No need for inpatient nephrology consult currently but cardiology recommending outpatient nephrology follow-up shortly after discharge. Chronic medical conditions: ? Class II obesity: BMI 35 on admit. Complicates hospital course and care. ? Type 2 diabetes mellitus: A1c 7.0% on 11/30. Hold home metformin and glimepiride. Treating with sliding-scale insulin with meals while inpatient, adjust as needed. ? GERD: Continue home PPI. ? Anxiety/depression/insomnia: Continue home fluoxetine and mirtazapine. ? Chronic pain syndrome: Continue home hydrocodone?acetaminophen 3 times daily as needed. DVT prophylaxis: Heparin subcu CODE STATUS: Full code, verified Expected disposition: Home, TBD Total clinical time spent by myself addressing the patient's medical issues, reviewing all the data, and collaborating with patient's care team: 35 minutes. Charges/Coding Visit Charges Inpatient E&M: 54863 Subs Hosp L2
[2024-12-04] MEDS: Potassium Chloride 10mEq/100mL 10 MEQ/100 ML IV.SOLN. 100 MEQ IV BOLUS (11:12)
[2024-12-04] MEDS: Potassium Chloride 10mEq/100mL 10 MEQ/100 ML IV.SOLN. 90 MEQ IV BOLUS ×3 (12:26→15:19)
--- NOTE | 2024-12-04 16:10 | CASEMGMT ---
ALEX SANTOS chart review: Patient was admitted 11/30-12/02/24 for STEMI. See assessment from 12/01. Patient discharged to home with family support and follow-up plans in place. Patient requested to be discharge to attend granddaughters wedding. 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 ALEX SANTOS in to discuss readmission and discharge planning. Patient states he was discharged too soon but was still going to leave to attend his granddaughters wedding. Patient returned to [facility] ED prior to taking medications and attending follow-up appts. Patient states he will stay until recommended. Patient denies needs or help at discharge. Patient to discharge home with family support and follow-up plans in place. CM will continue to follow this patient and plan for a safe discharge.
--- OUTSIDE RECORDS SUMMARY | 2024-12-04 21:49 | XMS RPT_ITS | CCD ---
Author Organization [facility] Care Team Providers Care Mandarin Teacher Name Role Phone Unavailable Unavailable Unavailable Marycarmen Rodriguez DO Primary Care Provider [phone] Marycarmen Rodriguez DO Primary Care Provider [phone] MIN HOWARD Referring Unavailable MARYCARMEN RODRIGUEZ Primary [...] Attending Unavaila ble SCHWFERNANDA RODRIGUEZ Attending Unavailable AMRYCARMEN RODRIGUEZ Primary Care Unavailable FERNANDA ACUÑA Referring Unavailable FERNANDA ACUÑA Attending Unavailable MARYCARMEN RODRIGUEZ Primary Care Unavailable MARYCARMEN RODRIGUEZ Admitting Unavailable ELADIO INGRAM Attending Unavaila ble MARYCARMEN RODRIGUEZ Referring Unavailable MARYCARMEN RODRIGUEZ Primary Care Unavailable ELADIO INGRAM Attending Unavaila MARYCARMEN Pena Primary Care Unavailable Dr. Marycarmen Rodriguez Primary Care Provider [phone] Dr. Marycarmen Rodriguez Referring Provider Mike PEREA, DWAINC Luz Elena Attending Provider Dr. Darnell Corral Attending Provider Mike 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, 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-C Luz Elena Referring Provider Mike 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, 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-C Luz Elena Other Provider [phone] Dr. John Palacios Attending Provider [phone] Mike 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, 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-C Luz Elena Referring Provider Dr. Marycarmen Rodriguez Primary Care Provider [phone] Dr. Marycarmen Rodriguez Referring Provider Mike 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, 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-C Luz Elena Attending Provider Dr. Zen East Attending Provider Dr. Marycarmen Rodriguez Primary Care Provider [phone] Dr. Marycarmen Rodriguez Referring Provider Dr. Merritt Persaud Attending Provider PARISH Youssef Attending Provider [phone] Mike PEREA, ELIAZAR-C Luz Elena Attending Provider [...] Provider Dr. Aimee Cummins Attending Provider Mike 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, 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-C Luz Elena Attending Provider Adina Vallejo Attending [...] Dr. Marycarmen Rodriguez DO Attending Provider Beto 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-C, Gustabo H Attending Provider Beto 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-C, Gustabo H Referring Provider Justina 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-CMarni Attending Provider Justina 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-CMarni Referring Provider Dr. Marycarmen Rodriguez DO Primary Care Provider Dr. Marycarmen Rodriguez DO Referring Provider Dr. Jose Hay MD Attending Provider Justina 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-CMarni Other Provider Dr. Zen East DO Attending Provider Dr. Marycarmen Rodriguez DO Primary Care Provider Dr. Marycarmen Rodriguez DO Referring Provider Jennifer DO, Dr. Dow Attending Provider Jennifer DO, Dr. Dow Primary Care Provider Jennifer DO, Dr. Dow Referring Provider Brendon 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-C, Maren Clarke Attending Provider Brendon 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-C, Maren Clarke Referring Provider Cruzito CATHERINE, Dr. Zaldivar Attending Provider Pauline PALOMO, Dr. Guy Attending Provider Pauline PALOMO, Dr. Guy Referring Provider Roof 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-C, Gustabo Gao Other Provider Roof 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-C, Gustabo Gao Attending Provider Jennifer DO, Dr. Dow Primary Care Provider Jennifer DO, Dr. Dow Attending Provider Jennifer DO, Dr. Dow Primary Care Provider Horn 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-C, Marni Attending Provider Horn 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-C, Marni Referring Provider Jennifer DO, Dr. Dow Referring Provider Roof 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-C, Gustabo Gao Referring Provider Jennifer PALOMO, Dr. Lucas Attending Provider Unavailab bear Hay MD, Dr. Garcia Attending Provider JenniferDr. Marycarmen vera DO Primary Care Provider Horn 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-C, Marni Attending Provider Horn 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-CMarni Referring Provider JenniferDr. Marycarmen vera DO Referring Provider Brendon 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-CMaren Attending Provider Brendon 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-C, Maren Clarke Referring Provider JenniferDr. Marycarmen vera DO Attending Provider Pauline PALOMO, Dr. Guy Attending Provider Pauline PALOMO, Dr. Guy Referring Provider Roof 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-C, Gustabo H Other Provider Roof 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-C, Gustabo H Attending Provider Roof 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-C, Gustabo H Referring Provider Jennifer PALOMO, Dr. Lucas Attending Provider Unavailab bear Hay MD, Dr. Garcia Attending Provider Isael Bernabe MD Emergency Provider Jose Armando PALOMO, Dr. Garcia Admit Provider Jose Armando PALOMO, Dr. Garcia Referring Provider Keyana CATHERINE, Dr. Rosario Admit Provider Dr. Abraham Ridley DO Attending Provider Dr. Marycarmen Rodriguez DO Primary Care Provider Horn 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-C, Marni Attending Provider Justina 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-C, Marni Referring Provider Isael Bernabe MD Attending Provider Dr. Abraham Ridley DO Other Provider Dr. Nickie Danielson DO Attending Provider [phone] Elvis Olvera MD Other Provider Unavailable Dr. Sangeeta Negro MD Other Provider Faye Kingsley MD Other Provider Unavailable Dr. Petrona Vargas DO Other Provider Cain PALOMO, Dr. Harvey Other Provider Sissy PALOMO, Dr. Shetty Other Provider Carrington PALOMO, Dr. Alcala Other Provider Nasim PALOMO, Dr. Whitaker Other Provider Dr. Seymour John MD Other Provider Willie PALOMO, Dr. Roldan Other Provider Xena PALOMO, Chrissy Other Provider [phone] Florentino PALOMO, Dr. Bynum Other Provider Bari PALOMO, Dr. Burleson Other Provider Cher PALOMO, Dr. Vera Other Provider Arnav PALOMO, Dr. Fermin Hernandez Other Provider Ken PALOMO, Dr. Alvarado Other Provider [phone] Joana PALOMO, Dr. Romero Other Provider [phone] Annabelle PALOMO, Dr. Collazo Other Provider Jagjit PALOMO, Dr. Acevedo Other Provider Unavailable Kayli PALOMO, Ernestina Other Provider Unavailable Dr. Abraham Ridley DO Attending Provider Jagjit CATHERINE, Dr. Fu Other Provider Gayle PALOMO, Dr. Burch Attending Provider Hilton PALOMO, Dr. Iqbal Emergency Provider Tatiana PALOMO, Dr. Arevalo Referring Provider Jose Armando, Jose Referring Unavailable Jose Armando, Jose Admitting Unavailable Jose Armando, Jose Attending Unavailable Jennifer, Marycarmen Primary Care Unavailable Jennifer, Marycarmen Primary Care Unavailable Justina 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, Marni Referring Unavailable Justina 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, Marni Attending Unavailable Jose Armando, Jose Referring Unavailable Jose Armando, Jose Attending Unavailable Jennifer, Marycarmen Primary Care Unavailable Abraham Ridley Admitting Unavailable Abraham Ridley Consulting Unavailable Jose Armando, Jose Referring Unavailable Nickie Danielson Attending Unavailable Jennifer, Marycarmen Primary Care Unavailable [place]vis judd Consulting Unavailable Adeli, Amir Consulting Unavailable Hinduja, Faye Consulting Unavailable Sam, Petrona Consulting Unavailable Zha, Candice Consulting Unavailable Sissy, Diogenes Consulting Unavailable Carrington, Cari Consulting Unavailable Bittatammie, Sherman Consulting Unavailable Seymour John Consulting Unavailable Jamar Tapia Consulting Unavailable Chrissy Mccallum Consulting Unavailable Fletcher Good Consulting Unavailable Sarah Beth Candelaria Consulting Unavailable Jody Kwon Consulting Unavailable Zamiloadrianneh, Mhd David Consulting UnavailMin Woodruff Consulting Unavailable Bernard, Rami Consulting Unavailable Zay Alanis Consulting Unavailable Kristina Danielson Consulting Unavailable Ernestina Milan Consulting Unavailable Jose Hay Attending Unavailable Jennifer, Marycarmen Primary Care Unavailable Mostrohit, Abraham Admitting Unavailable Mostafa, Mickey Referring Unavailable Ramonita Herron Attending Unavailable Abraham Ridley Consulting Unavailable Jennifer, Marycarmen Primary Care Unavailable Mostafa, Mickey Consulting Unavailable Ramonita Herron Consulting Unavailable Marcin Araujo Attending Unavailable Abraham Ridley Admitting Unavailable Jose Armando, Jose Referring Unavailable Mostrohit, Abraham Consulting Unavailable Abraham Ridley Attending Unavailable Jennifer, Marycarmen Primary Care Unavailable Marcin Araujo Attending Unavailable Nickie Danielson Consulting Unavailable Nickie Danielson Attending Unavailable Elvis Olvera Consulting Unavailable AdeSangeeta dupree Consulting Unavailable Faye Kingsley Consulting Unavailable Petrona Vargas Consulting Unavailable Candice Barlow Consulting Unavailable Diogenes Sheehan Consulting Unavailable Cari Shultz Consulting Unavailable Sherman Rouse Consulting Unavailable Seymour John Consulting Unavailable Jamar Tapia Consulting Unavailable Chrissy Mccallum Consulting Unavailable Fletcher Good Consulting Unavailable Sarah Beth Candelaria Consulting Unavailable Jody Kwon Consulting Unavailable Zaghlouleh, Mhd David Consulting UnavailMin Woodruff Consulting Unavailable Bernard, Rami Consulting Unavailable Zay Alanis Consulting Unavailable Kristina Danielson Consulting Unavailable Kayli, Edmundosef Consulting Unavailable Jennifer, Marycarmen Referring Unavailable Horn 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, Marni Attending Unavailable Jennifer, Marycarmen Primary Care Unavailable Roof 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, Gustabo H Attending Unavailable Jennifer, Marycarmen Referring Unavailable Jennifer, Marycarmen Primary Care Unavailable Jennifer, Marycarmen Attending Unavailable Jennifer, Marycarmen Primary Care Unavailable Jennifer, Marycarmen Attending Unavailable Jennifer, Marycarmen Primary Care Unavailable Roof 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, Gustabo H Attending Unavailable Roof 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, Gustabo H Referring Unavailable Jennifer, Marycarmen Primary Care Unavailable Jennifer, Marycarmen Primary Care Unavailable Horn 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, Marni Attending Unavailable Horn 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, Marni Referring Unavailable Isael Bernabe Attending Unavailable Jennifer, Marycarmen Primary Care Unavailable Roof 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, Gustabo H Attending Unavailable Roof 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, Gustabo H Referring Unavailable Jennifer, Marycarmen Primary Care Unavailable Jennifer, Marycarmen Primary Care Unavailable Jennifer, Marycarmen Attending Unavailable Jennifer, Marycarmen Primary Care Unavailable Brooks Carpenter Attending Unavailable Basali, Ayman Referring Unavailable Jennifer, Marycarmen Primary Care Unavailable Roof 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, Gustabo H Consulting Unavailable BasalBrooks berman Referring Unavailable Brooks Carpenter Attending Unavailable Jennifer, Marycarmen Attending Unavailable Jennifer, Marycarmen Referring Unavailable Jennifer, Marycarmen Primary Care Unavailable Jennifer, Marycarmen Primary Care Unavailable Roof 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, Gustabo H Attending Unavailable Roof 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, Gustabo H Referring Unavailable Jennifer, Marycarmen Referring Unavailable Jose ArmandoJose Attending Unavailable Jennifer, Marycarmen Primary Care Unavailable Jose ArmandoJose Attending Unavailable Jennifer, Marycarmen Referring Unavailable Jennifer, Marycarmen Primary Care Unavailable Jennifer, Marycarmen Referring Unavailable Jennifer, Marycarmen Primary Care Unavailable Maren Olivas Attending Unavailable Jennifer, Marycarmen Referring Unavailable Roof 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, Gustabo Gao Attending Unavailable Jennifer, Marycarmen Primary Care Unavailable Jennifer, Marycarmen Primary Care Unavailable Jennifer, Marycarmen Referring Unavailable Roof 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, Gustabo H Attending Unavailable Jennifer, Marycarmen Primary Care Unavailable Roof 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, Gustabo Gao Referring Unavailable Lance Rodriguez Attending Unavailable Jennifer, Marycarmen Primary Care Unavailable Maren Olivas Attending Unavailable Jennifer, Marycarmen Referring Unavailable Jennifer, Marycarmen Primary Care Unavailable Zen East Attending Unavailable Horn 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, Marni Referring Unavailable Jennifer, Marycarmen Primary Care Unavailable Horn 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, Marni Attending Unavailable Jennifer, Marycarmen Primary Care Unavailable Horn 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, Marni Attending Unavailable Jennifer, Marycarmen Primary Care Unavailable Horn 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, Marni Attending Unavailable Horn 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, Marni Referring Unavailable Jennifer, Marycarmen Primary Care Unavailable Horn 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, Marni Referring Unavailable Horn 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, Marni Attending Unavailable Jennifer, Marycarmen Primary Care Unavailable Maren Olivas Referring Unavailable Maren Olivas Attending Unavailable Jennifer, Marycarmen Primary Care Unavailable Maren Olivas Referring Unavailable Maren Olivas Attending Unavailable Jennifer, Marycarmen Primary Care Unavailable Zen East Attending Unavailable Horn 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, Marni Referring Unavailable Horn 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, Marni Consulting Unavailable Jennifer, Marycarmen Primary Care Unavailable Horn 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, Marni Referring Unavailable Horn 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, Marni Attending Unavailable Jennifer, Marycarmen Primary Care Unavailable Roof 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, Gustabo H Referring Unavailable Roof 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, Gustabo Gao Consulting Unavailable Jose Hay Attending Unavailable Abraham Ridley Admitting Unavailable Abraham Ridley Consulting Unavailable Abraham Ridley Attending Unavailable Mickey Simposn Referring Unavailable Marycarmen Rodriguez Primary Care Unavailable Mickey Simpson Consulting Unavailable Ramonita Herron Consulting Unavailable Medications Current Medications Medication Drug Class(es) [...] Start: 05-07-2016 take 1 tablet by sara once daily furosemide (LASIX) 80 MG tablet [...] Drug Class(es) Dates Sig (Normalized) Sig (Original) [id number] 200 actuat albuterol 0.09 mg/actuat metered dose [...] PO 3 TIMES DAILY WITH MEALS 0 0 September 21, 2022 12:00am October [...] injector Discontinued 0.25 mg SC EVERY WEEK [id number] 30April 17, 2024 1:00am May 14, 2024 1:00am May 15, 2024 1:10am for 4 weeks 24 hr venlafaxine 150 mg extended release oral capsule (20 sources) Serotonin and Norepinephrine Reuptake Inhibitor Start: 01-21-2017 End: 08-30-2017 Start: 03-26-2016 End: 09-21-2018 Problems Active Problems Problem Classification Problem Date Documented Date Episodic/Chronic Acute and unspecified renal failure (6 sources) [id number] renal failure; Translations: [Acute kidney failure, unspecified] Onset: 12-03-2024 12-01-2024 Episodic Acute myocardial infarction (13 sources) Myocardial infarction; Translations: [ST elevation (STEMI) myocardial infarction of unspecified site] Onset: 11-30-2024 11-30-2024 Chronic Asthma (20 sources) Asthma; Translations: [Unspecified asthma, uncomplicated] 10-31-2024 Chronic Cardiac dysrhythmias (20 sources) Palpitations; Translations: [Palpitations] Onset: 10-25-2024 Episodic Chronic kidney disease (20 sources) Chronic kidney disease stage 3; Translations: [Stage 3 chronic kidney disease] Onset: 12-04-2024 12-09-2020 Chronic Chronic kidney disease (8 sources) [...] heart disease (20 sources) Coronary arteriosclerosis in [place] artery; Translations: [Preinfarction syndrome] Onset: 01-05-2015 10-15-2016 [...] multiple wires and attempts. Procedure aborted. 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2345OTI-XRSY-Um and Stent-Mid RCA x 2 Multi Link Mini Vision Rx Stent 4.0 x 28 mm 01/21/2006 Deficiency and other anemia (1 source) Anemia, unspecified; Translations: [Anemia, unspecified] Onset: 10-05-2024 Episodic Diabetes mellitus without complication (20 sources) Diabetes mellitus; Translations: [Type 2 diabetes mellitus without complications] Onset: 12-04-2024 01-05-2015 Chronic Diseases of white blood cells (6 sources) Leukocytosis; Translations: [Elevated white blood cell count, unspecified] Onset: 12-04-2024 12-01-2024 Chronic Disorders of lipid metabolism (20 sources) Hyperlipidemia; Translations: [Hyperlipidemia, unspecified] Onset: 12-04-2024 06-17-2015 Chronic Diverticulosis and diverticulitis (20 sources) Diverticulitis; Translations: [Diverticulitis of intestine, part unspecified, without perforation or abscess without bleeding] 05-27-2021 Chronic E Codes: Fall (7 sources) Fall; Translations: [Unspecified fall, initial encounter] 11-26-2024 Episodic Essential hypertension (20 sources) Hypertensive disorder; Translations: [Essential (primary) hypertension] Onset: 12-04-2024 06-17-2015 Chronic Fluid and electrolyte disorders (20 sources) Lactic acidosis; Translations: [Acidosis] Onset: 12-04-2024 11-26-2020 Episodic Immunizations and screening for infectious [...] of breath; Translations: [Shortness of breath] Onset: 12-04-2024 Episodic Other lower respiratory disease (1 source) [...] Chronic Other nutritional; endocrine; and metabolic disorders (11 sources) Obesity, unspecified; Translations: [Obesity, unspecified] Onset: [...] Test Name Value Interpretation Reference Range Facility Basic Metabolic Profile (BMP )on 12-04-2024 BUN/CRE 19.4 RATIO Normal - [facility] Comment on above: Performed By: #### L 500.2500, L100.0100 ####[facility] [address] [place], [address] Calcium [Mass/Vol] 9.2 mg/dL Normal 7.6-11.0 [facility] Comment on above: Performed By: #### L 500.2500, L100.0100 ####[facility] [address] [place], [address] Chloride [Moles/Vol] 96 mmol/L Low 98-108 [facility] Comment on above: Performed By: #### L 500.2500, L100.0100 ####[facility] [address] [place], [address] CO2 [Moles/Vol] 21.4 mmol/L Normal 21.0-32.0 [facility] Comment on above: Performed By: #### L 500.2500, L100.0100 ####[facility] [address] [place], [address] Creatinine [Mass/Vol] 2.53 mg/dL High 0.70-1.20 [facility] Comment on above: Performed By: #### L 500.2500, L100.0100 ####[facility] [address] [place], [address] ECRCL 28.47 ml/min Low 50-250 [facility] Comment on above: Performed By: #### L 500.2500, L100.0100 ####[facility] [address] [place], [address] GAP 19 High 5-15 [facility] Comment on above: Performed By: #### L 500.2500, L100.0100 ####[facility] [address] [place], [address] GFR/1.73 sq M.predicted among non-blacks MDRD (S/P/Bld) [Vol rate/Area] 25 mL/min/{1.73_m2} Low >60 [facility] Comment on above: Result Comment: mL/m in/1.73m2 CKD-EPI Creatinine Equation (2020) Performed By: #### L 500.2500, L100.0100 ####[facility] [address] [place], [address] Glucose [Mass/Vol] 140 mg/dL High 70-99 [facility] Comment on above: Performed By: #### L 500.2500, L100.0100 ####[facility] [address] [place], [address] Potassium [Moles/Vol] 3.1 mmol/L Low 3.3-5.1 [facility] Comment on above: Performed By: #### L 500.2500, L100.0100 ####[facility] [address] [place], [address] Sodium [Moles/Vol] 137 mmol/L Normal 133-145 [facility] Comment on above: Performed By: #### L 500.2500, L100.0100 ####[facility] [address] [place], [address] Urea nitrogen [Mass/Vol] 49 mg/dL High 4-19 [facility] Comment on above: Performed By: #### L 500.2500, L100.0100 ####[facility] [address] [place], [address] Bedside Glucoseon 12-04-2024 FINGERSTICK GLU 207 mg/dL High 74-106 [facility] Comment on above: Result Comment: WILDA GEMENT OF PATIENT CARE PER NURSING PROTOCOL Performed By: #### L 501.080 ####[facility] [address] [place], [address] FINGERSTICK GLU 147 mg/dL High 74-106 [facility] Comment on above: Result Comment: WILDA GEMENT OF PATIENT CARE PER NURSING PROTOCOL Performed By: #### L 501.080 ####[facility] [address] [place], [address] CBC W/Diff, Automatedon 08-0 Absolute Lymph 1.07 X10 3/uL Normal 0.83-4.51 [facility] Comment on above: Performed By: #### L 500.2500, L100.0100 ####[facility] [address] [place], [address] Absolute Neut 7.1 X10 3/uL Normal 2.0-7.7 [facility] Comment on above: Performed By: #### L 500.2500, L100.0100 ####[facility] [address] [place], [address] Basophils/100 WBC (Bld) 0.3 % Normal 0-1 [facility] Comment on above: Performed By: #### L 500.2500, L100.0100 ####[facility] [address] [place], [address] Eosinophils/100 WBC (Bld) 2.2 % Normal 0-5 [facility] Comment on above: Performed By: #### L 500.2500, L100.0100 ####[facility] [address] [place], [address] Erythrocyte distribution width (RBC) [Ratio] 13.7 % Normal 11.6-14.6 [facility] Comment on above: Performed By: #### L 500.2500, L100.0100 ####[facility] [address] [place], [address] Hematocrit (Bld) [Volume fraction] 31.5 % Low 40-54 [facility] Comment on above: Performed By: #### L 500.2500, L100.0100 ####[facility] [address] [place], [address] Hemoglobin (Bld) [Mass/Vol] 10.5 g/dL Low 13.0-16.5 [facility] Comment on above: Performed By: #### L 500.2500, L100.0100 ####[facility] [address] [place], [address] IG% 0.600 Normal 0.0-0.9 [facility] Comment on above: Result Comment: IG% - Immature Granulocytes (promyelocytes, myelocytes andmetamyelocytes) > 1% indicates that a LEFT SHIFT is Present. Performed By: #### L 500.2500, L100.0100 ####[facility] [address] [place], [address] Lymphocytes/100 WBC (Bld) 11.1 % Low 19-41 [facility] Comment on above: Performed By: #### L 500.2500, L100.0100 ####[facility] [address] [place], [address] MCH (RBC) [Entitic mass] 29.2 pg Normal 27.0-32.0 [facility] Comment on above: Performed By: #### L 500.2500, L100.0100 ####[facility] [address] [place], [address] MCHC (RBC) [Mass/Vol] 33.3 g/dL Normal 32-36 [facility] Comment on above: Performed By: #### L 500.2500, L100.0100 ####[facility] [address] [place], [address] MCV (RBC) [Entitic vol] 87.7 fL Normal 80-94 [facility] Comment on above: Performed By: #### L 500.2500, L100.0100 ####[facility] [address] [place], [address] Monocytes/100 WBC (Bld) 11.9 % High 0-10 [facility] Comment on above: Performed By: #### L 500.2500, L100.0100 ####[facility] [address] [place], [address] Neutrophils/100 WBC (Bld) 73.9 % High 47-70 [facility] Comment on above: Performed By: #### L 500.2500, L100.0100 ####[facility] [address] [place], [address] Nucleated RBC (Bld) [#/Vol] 0 10*3/uL Normal 0-5 [facility] Comment on above: Performed By: #### L 500.2500, L100.0100 ####[facility] [address] [place], [address] Platelet mean volume (Bld) [Entitic vol] 13.7 fL High 6.2-12.0 [facility] Comment on above: Performed By: #### L 500.2500, L100.0100 ####[facility] [address] [place], [address] Platelets (Bld) [#/Vol] 126 10*3/uL Low 150-450 [facility] Comment on above: Performed By: #### L 500.2500, L100.0100 ####[facility] [address] [place], [address] RBC (Bld) [#/Vol] 3.59 10*6/uL Low 4.6-6.2 [facility] Comment on above: Performed By: #### L 500.2500, L100.0100 ####[facility] [address] [place], [address] RDW SD 43.8 fl Normal 35.1-43.9 [facility] Comment on above: Performed By: #### L 500.2500, L100.0100 ####[facility] [address] [place], [address] WBC (Bld) [#/Vol] 9.7 10*3/uL Normal 4.4-11.0 [facility] Comment on above: Performed By: #### L 500.2500, L100.0100 ####[facility] [address] [place], [address] 12 Lead EKGon 12-03-2024 12 Lead EKG Normal [facility] Bedside Glucoseon 12-03-2024 FINGERSTICK GLU 153 mg/dL High 74-106 [facility] Comment on above: Result Comment: WILDA GEMENT OF PATIENT CARE PER NURSING PROTOCOL Performed By: #### L 501.080 ####[facility] [address] [place], [address] FINGERSTICK GLU 156 mg/dL [address] Comment on above: Result Comment: WILDA GEMENT OF PATIENT CARE PER NURSING PROTOCOL Performed By: #### L 501.080 ####[facility] [address] [place], [address] FINGERSTICK GLU 226 mg/dL [facility]106 [facility] Comment on above: Result Comment: WILDA GEMENT OF PATIENT CARE PER NURSING PROTOCOL Performed By: #### L 501.080 ####[facility] [address] [place], [address] FINGERSTICK GLU 140 mg/dL [address] Comment on above: Result Comment: WILDA GEMENT OF PATIENT CARE PER NURSING PROTOCOL Performed By: #### L 501.080 ####[facility] [address] [place], [address] FINGERSTICK GLU 200 mg/dL [address] Comment on above: Result Comment: WILDA GEMENT OF PATIENT CARE PER NURSING PROTOCOL Performed By: #### L 501.080 ####[facility] [address] [place], [address] CBC W/Diff, Automatedon 08-0 -2024 Absolute Lymph 0.95 X10 3/uL Normal 0.83-4.51 [facility] Comment on above: Performed By: #### L 500.4050, L100.0100, L501.2300, L501.5200 ####[facility] [address] [place], [address] Absolute Neut 6.9 X10 3/uL Normal 2.0-7.7 [facility] Comment on above: Performed By: #### L 500.4050, L100.0100, L501.2300, L501.5200 ####[facility] [address] [place], [address] Basophils/100 WBC (Bld) 0.2 % Normal 0-1 [facility] Comment on above: Performed By: #### L 500.4050, L100.0100, L501.2300, L501.5200 ####[facility] [address] [place], [address] Eosinophils/100 WBC (Bld) 1.8 % Normal 0-5 [facility] Comment on above: Performed By: #### L 500.4050, L100.0100, L501.2300, L501.5200 ####[facility] [address] [place], [address] Erythrocyte distribution width (RBC) [Ratio] 14.2 % Normal 11.6-14.6 [facility] Comment on above: Performed By: #### L 500.4050, L100.0100, L501.2300, L501.5200 ####[facility] [address] [place], [address] Hematocrit (Bld) [Volume fraction] 31.8 % Low 40-54 [facility] Comment on above: Performed By: #### L 500.4050, L100.0100, L501.2300, L501.5200 ####[facility] [address] [place], [address] Hemoglobin (Bld) [Mass/Vol] 10.3 g/dL Low 13.0-16.5 [facility] Comment on above: Performed By: #### L 500.4050, L100.0100, L501.2300, L501.5200 ####[facility] [address] [place], [address] IG% 0.600 Normal 0.0-0.9 [facility] Comment on above: Result Comment: IG% - Immature Granulocytes (promyelocytes, myelocytes andmetamyelocytes) > 1% indicates that a LEFT SHIFT is Present. Performed By: #### L 500.4050, L100.0100, L501.2300, L501.5200 ####[facility] [address] [place], [address] Lymphocytes/100 WBC (Bld) 10.5 % Low 19-41 [facility] Comment on above: Performed By: #### L 500.4050, L100.0100, L501.2300, L501.5200 ####[facility] [address] [place], [address] MCH (RBC) [Entitic mass] 29.3 pg Normal 27.0-32.0 [facility] Comment on above: Performed By: #### L 500.4050, L100.0100, L501.2300, L501.5200 ####[facility] [address] [place], [address] MCHC (RBC) [Mass/Vol] 32.4 g/dL Normal 32-36 [facility] Comment on above: Performed By: #### L 500.4050, L100.0100, L501.2300, L501.5200 ####[facility] [address] [place], [address] MCV (RBC) [Entitic vol] 90.3 fL Normal 80-94 [facility] Comment on above: Performed By: #### L 500.4050, L100.0100, L501.2300, L501.5200 ####[facility] [address] [place], [address] Monocytes/100 WBC (Bld) 11.4 % High 0-10 [facility] Comment on above: Performed By: #### L 500.4050, L100.0100, L501.2300, L501.5200 ####[facility] [address] [place], [address] Neutrophils/100 WBC (Bld) 75.5 % High 47-70 [facility] Comment on above: Performed By: #### L 500.4050, L100.0100, L501.2300, L501.5200 ####[facility] [address] [place], [address] Nucleated RBC (Bld) [#/Vol] 0 10*3/uL Normal 0-5 [facility] Comment on above: Performed By: #### L 500.4050, L100.0100, L501.2300, L501.5200 ####[facility] [address] [place], [address] Platelet mean volume (Bld) [Entitic vol] 12.4 fL High 6.2-12.0 [facility] Comment on above: Performed By: #### L 500.4050, L100.0100, L501.2300, L501.5200 ####[facility] [address] [place], [address] Platelets (Bld) [#/Vol] 104 10*3/uL Low 150-450 [facility] Comment on above: Performed By: #### L 500.4050, L100.0100, L501.2300, L501.5200 ####[facility] [address] [place], [address] RBC (Bld) [#/Vol] 3.52 10*6/uL Low 4.6-6.2 [facility] Comment on above: Performed By: #### L 500.4050, L100.0100, L501.2300, L501.5200 ####[facility] [address] [place], [address] RDW SD 46.0 fl High 35.1-43.9 [facility] Comment on above: Performed By: #### L 500.4050, L100.0100, L501.2300, L501.5200 ####[facility] [address] [place], [address] WBC (Bld) [#/Vol] 9.1 10*3/uL Normal 4.4-11.0 [facility] Comment on above: Performed By: #### L 500.4050, L100.0100, L501.2300, L501.5200 ####[facility] [address] [place], [address] Comprehensive Metabolic Prof mdon 12-03-2024 Albumin [Mass/Vol] 3.4 g/dL Normal 3.4-4.8 [facility] Comment on above: Performed By: #### L 500.4050, L100.0100, L501.2300, L501.5200 ####[facility] [address] [place], [address] Albumin/Globulin [Mass ratio] 1.2 {ratio} Normal 0.9-2.4 [facility] Comment on above: Performed By: #### L 500.4050, L100.0100, L501.2300, L501.5200 ####[facility] [address] [place], [address] ALK PHOS 94 U/L Normal 40-129 [facility] Comment on above: Performed By: #### L 500.4050, L100.0100, L501.2300, L501.5200 ####[facility] [address] [place], [address] ALT [Catalytic activity/Vol] 47 U/L Normal <=46 [facility] Comment on above: Performed By: #### L 500.4050, L100.0100, L501.2300, L501.5200 ####[facility] [address] [place], [address] AST [Catalytic activity/Vol] 134 U/L High <=37 [facility] Comment on above: Performed By: #### L 500.4050, L100.0100, L501.2300, L501.5200 ####[facility] [address] [place], [address] Bilirubin [Mass/Vol] 1.27 mg/dL Normal 0.00-1.30 [facility] Comment on above: Performed By: #### L 500.4050, L100.0100, L501.2300, L501.5200 ####[facility] [address] [place], [address] BUN/CRE 20.6 RATIO High 10-20 [facility] Comment on above: Performed By: #### L 500.4050, L100.0100, L501.2300, L501.5200 ####[facility] [address] [place], [address] Calcium [Mass/Vol] 8.9 mg/dL Normal 7.6-11.0 [facility] Comment on above: Performed By: #### L 500.4050, L100.0100, L501.2300, L501.5200 ####[facility] [address] [place], [address] Chloride [Moles/Vol] 100 mmol/L Normal 98-108 [facility] Comment on above: Performed By: #### L 500.4050, L100.0100, L501.2300, L501.5200 ####[facility] [address] [place], [address] CO2 [Moles/Vol] 18.7 mmol/L Low 21.0-32.0 [facility] Comment on above: Performed By: #### L 500.4050, L100.0100, L501.2300, L501.5200 ####[facility] [address] [place], [address] Creatinine [Mass/Vol] 2.58 mg/dL High 0.70-1.20 [facility] Comment on above: Performed By: #### L 500.4050, L100.0100, L501.2300, L501.5200 ####[facility] [address] [place], [address] ECRCL 28.22 ml/min Low 50-250 [facility] Comment on above: Performed By: #### L 500.4050, L100.0100, L501.2300, L501.5200 ####[facility] [address] [place], [address] GAP 15 Normal 5-15 [facility] Comment on above: Performed By: #### L 500.4050, L100.0100, L501.2300, L501.5200 ####[facility] [address] [place], [address] GFR/1.73 sq M.predicted among non-blacks MDRD (S/P/Bld) [Vol rate/Area] 25 mL/min/{1.73_m2} Low >60 [facility] Comment on above: Result Comment: mL/m in/1.73m2 CKD-EPI Creatinine Equation (2020) Performed By: #### L 500.4050, L100.0100, L501.2300, L501.5200 ####[facility] [address] [place], [address] Globulin (S) [Mass/Vol] 2.8 g/dL Normal 2.2-4.2 [facility] Comment on above: Performed By: #### L 500.4050, L100.0100, L501.2300, L501.5200 ####[facility] [address] [place], [address] Glucose [Mass/Vol] 154 mg/dL High 70-99 [facility] Comment on above: Performed By: #### L 500.4050, L100.0100, L501.2300, L501.5200 ####[facility] [address] [place], [address] Potassium [Moles/Vol] 3.7 mmol/L Normal 3.3-5.1 [facility] Comment on above: Performed By: #### L 500.4050, L100.0100, L501.2300, L501.5200 ####[facility] [address] [place], [address] Sodium [Moles/Vol] 134 mmol/L Normal 133-145 [facility] Comment on above: Performed By: #### L 500.4050, L100.0100, L501.2300, L501.5200 ####[facility] [address] [place], [address] T PROT 6.3 g/dL Normal 5.9-8.4 [facility] Comment on above: Performed By: #### L 500.4050, L100.0100, L501.2300, L501.5200 ####[facility] [address] [place], [address] Urea nitrogen [Mass/Vol] 53 mg/dL High 4-19 [facility] Comment on above: Performed By: #### L 500.4050, L100.0100, L501.2300, L501.5200 ####[facility] [address] [place], [address] Consultation - Cardiologyon 12-03-2024 Consultation - Cardiology Normal [facility] Magnesiumon 12-03-2024 Magnesium [Mass/Vol] 2.5 mg/dL High 1.5-2.2 [facility] Comment on above: Performed By: #### L 500.4050, L100.0100, L501.2300, L501.5200 ####[facility] [address] [place], [address] Phosphoruson 12-03-2024 Phosphate [Mass/Vol] 3.4 mg/dL Normal 2.7-4.5 [facility] Comment on above: Performed By: #### L 500.4050, L100.0100, L501.2300, L501.5200 ####[facility] [address] [place], [address] Troponin T HS 2 HRon 025 Trop T High Sen > 51012 Invalid Interpretation Code <=22 [facility] Comment on above: Result Comment: Crit ical Result(s) Called at:0007 by:??KEIKO BABB Results read back by same. Performed By: #### L 499.0042 ####[facility] [address] [place], [address] Troponin T HS 4 HRon 025 Trop T High Sen > 11927 Invalid Interpretation Code <=22 [facility] Comment on above: Result Comment: Crit ical Result(s) Called at: 0240 by:??KEIKO HOOPER Results read back by same. Performed By: #### L 499.0043 ####[facility] [address] [place], [address] Urinalysis, Completeon 12-03 BACTERIA 0 SEEN Normal None Seen [facility] Comment on above: Order Comment: CLEAN CATCH Performed By: #### L 400.0001 ####[facility] [address] [place], [address] EPI,SQUAMOUS 0 SEEN Normal 0-5 [facility] Comment on above: Order Comment: CLEAN CATCH Performed By: #### L 400.0001 ####[facility] [address] [place], [address] Mucus Ql (Urine sed) 0 SEEN Normal [facility] Comment on above: Order Comment: CLEAN CATCH Performed By: #### L 400.0001 ####[facility] [address] [place], [address] RBC 0 SEEN Normal 0-5 [facility] Comment on above: Order Comment: CLEAN CATCH Performed By: #### L 400.0001 ####[facility] [address] [place], [address] WBC 0 SEEN Normal 0-5 [facility] Comment on above: Order Comment: CLEAN CATCH Performed By: #### L 400.0001 ####[facility] [address] [place], [address] 12 Lead EKGon 12-02-2024 12 Lead EKG Normal [facility] ACT Activated Clotting Timeo n 12-02-2024 ACTk CLOT TIME 245 sec High 74-137 [facility] Comment on above: Performed By: #### L 9100.0100 ####[facility] [address] [place], [address] Absolute lymphocyte countOrd ered By: Rasheed Canela on 12-02-2024 Lymphocytes Auto (Unsp spec) [#/Vol] 1.13 10*3/uL 0.83-4.51 [facility] Absolute lymphocyte countOrd ered By: Nickie Danielson on 12-02-2024 Lymphocytes Auto (Unsp spec) [#/Vol] 0.85 10*3/uL 0.83-4.51 [facility] Activated partial thrombopla stin time (aPTT) in platelet poor plasma by coagulation aOrdered By: Rasheed Canela on 12-02-2024 aPTT Coag (PPP) [Time] 31.6 s 24.1-36.2 [facility] Anion gap in Serum or Plasma Ordered By: Rasheed Canela on 12-02-2024 Anion gap [Moles/Vol] 14 mmol/L 5-15 [facility] Anion gap in Serum or Plasma Ordered By: Nickie Danielson on 12-02-2024 Anion gap [Moles/Vol] 14 mmol/L 09-14 [facility] Automated lymphocyte count a s percentage of total leukocytesOrdered By: Rasheed Canela on 12-02-2024 Lymphocytes/100 WBC Auto (Unsp spec) 8.9 % Low [facility] Automated lymphocyte count a s percentage of total leukocytesOrdered By: Nickie Danielson on 12-02-2024 Lymphocytes/100 WBC Auto (Unsp spec) 7.6 % Low [facility] BUN/creatinine ratioOrdered By: Rasheed Canela on 12-02-2024 Urea nitrogen/Creatinine [Mass ratio] 18.0 mg/mg 02-19 [facility] BUN/creatinine ratioOrdered By: Nickie Danielson on 12-02-2024 Urea nitrogen/Creatinine [Mass ratio] 17.2 mg/mg 02-19 [facility] Basic Metabolic Profile (BMP )on 12-02-2024 BUN/CRE 18.0 RATIO Normal 02-19 [facility] Comment on above: Performed By: #### L 300.4310, L501.4021, L300.3900, L100.0100, L500.2500 ####[facility] [address] [place], [address] Calcium [Mass/Vol] 9.1 mg/dL Normal 7.6-11.0 [facility] Comment on above: Performed By: #### L 300.4310, L501.4021, L300.3900, L100.0100, L500.2500 ####[facility] [address] [place], [address] Chloride [Moles/Vol] 96 mmol/L Low 98-108 [facility] Comment on above: Performed By: #### L 300.4310, L501.4021, L300.3900, L100.0100, L500.2500 ####[facility] [address] [place], [address] CO2 [Moles/Vol] 20.5 mmol/L Low 21.0-32.0 [facility] Comment on above: Performed By: #### L 300.4310, L501.4021, L300.3900, L100.0100, L500.2500 ####[facility] [address] [place], [address] Creatinine [Mass/Vol] 2.90 mg/dL High 0.70-1.20 [facility] Comment on above: Performed By: #### L 300.4310, L501.4021, L300.3900, L100.0100, L500.2500 ####[facility] [address] [place], [address] ECRCL 25.31 ml/min Low 50-250 [facility] Comment on above: Performed By: #### L 300.4310, L501.4021, L300.3900, L100.0100, L500.2500 ####[facility] [address] [place], [address] GAP 14 Normal 5-15 [facility] Comment on above: Performed By: #### L 300.4310, L501.4021, L300.3900, L100.0100, L500.2500 ####[facility] [address] [place], [address] GFR/1.73 sq M.predicted among non-blacks MDRD (S/P/Bld) [Vol rate/Area] 21 mL/min/{1.73_m2} Low >60 [facility] Comment on above: Result Comment: mL/m in/1.73m2 CKD-EPI Creatinine Equation (2020) Performed By: #### L 300.4310, L501.4021, L300.3900, L100.0100, L500.2500 ####[facility] [address] [place], [address] Glucose [Mass/Vol] 175 mg/dL High 70-99 [facility] Comment on above: Performed By: #### L 300.4310, L501.4021, L300.3900, L100.0100, L500.2500 ####[facility] [address] [place], [address] Potassium [Moles/Vol] 4.6 mmol/L Normal 3.3-5.1 [facility] Comment on above: Performed By: #### L 300.4310, L501.4021, L300.3900, L100.0100, L500.2500 ####[facility] [address] [place], [address] Sodium [Moles/Vol] 131 mmol/L Low 133-145 [facility] Comment on above: Performed By: #### L 300.4310, L501.4021, L300.3900, L100.0100, L500.2500 ####[facility] [address] [place], [address] Urea nitrogen [Mass/Vol] 52 mg/dL High 4-19 [facility] Comment on above: Performed By: #### L 300.4310, L501.4021, L300.3900, L100.0100, L500.2500 ####[facility] [address] [place], [address] BUN/CRE 17.2 RATIO Normal 10-20 [facility] Comment on above: Performed By: #### L 500.2500, L100.0100 ####[facility] [address] [place], [address] Calcium [Mass/Vol] 9.3 mg/dL Normal 7.6-11.0 [facility] Comment on above: Performed By: #### L 500.2500, L100.0100 ####[facility] [address] [place], [address] Chloride [Moles/Vol] 99 mmol/L Normal 98-108 [facility] Comment on above: Performed By: #### L 500.2500, L100.0100 ####[facility] [address] [place], [address] CO2 [Moles/Vol] 20.6 mmol/L Low 21.0-32.0 [facility] Comment on above: Performed By: #### L 500.2500, L100.0100 ####[facility] [address] [place], [address] Creatinine [Mass/Vol] 2.93 mg/dL High 0.70-1.20 [facility] Comment on above: Performed By: #### L 500.2500, L100.0100 ####[facility] [address] [place], [address] ECRCL 24.95 ml/min Low 50-250 [facility] Comment on above: Performed By: #### L 500.2500, L100.0100 ####[facility] [address] [place], [address] GAP 14 Normal 5-15 [facility] Comment on above: Performed By: #### L 500.2500, L100.0100 ####[facility] [address] [place], [address] GFR/1.73 sq M.predicted among non-blacks MDRD (S/P/Bld) [Vol rate/Area] 21 mL/min/{1.73_m2} Low >60 [facility] Comment on above: Result Comment: mL/m in/1.73m2 CKD-EPI Creatinine Equation (2020) Performed By: #### L 500.2500, L100.0100 ####[facility] [address] [place], [address] Glucose [Mass/Vol] 138 mg/dL High 70-99 [facility] Comment on above: Performed By: #### L 500.2500, L100.0100 ####[facility] [address] [place], [address] Potassium [Moles/Vol] 4.8 mmol/L Normal 3.3-5.1 [facility] Comment on above: Performed By: #### L 500.2500, L100.0100 ####[facility] [address] [place], [address] Sodium [Moles/Vol] 133 mmol/L Normal 133-145 [facility] Comment on above: Performed By: #### L 500.2500, L100.0100 ####[facility] [address] [place], [address] Urea nitrogen [Mass/Vol] 50 mg/dL High 4-19 [facility] Comment on above: Performed By: #### L 500.2500, L100.0100 ####[facility] [address] [place], [address] Basophil percentageOrdered B y: Rasheed Canela on 12-02-2024 Basophils/100 WBC (Bld) 0.3 % 0-1 [facility] Basophil percentageOrdered B y: Nickie Jagjit on 12-02-2024 Basophils/100 WBC (Bld) 0.1 % 0-1 [facility] Bedside Glucoseon 12-02-2024 FINGERSTICK GLU 129 mg/dL High 74-106 [facility] Comment on above: Result Comment: WILDA BARROSO OF PATIENT CARE PER NURSING PROTOCOL Performed By: #### L 501.080 ####[facility] [address] [place], [address] Brain without Contraston Brain without Contrast Normal [facility] CBC W/Diff, Automatedon 08 PLT EST SLT DEC Normal ADEQ [facility] Comment on above: Performed By: #### L 300.4310, L501.4021, L300.3900, L100.0100, L500.2500 ####[facility] [address] [place], [address] SMEAR COMMENT SCANNED Normal [facility] Comment on above: Performed By: #### L 300.4310, L501.4021, L300.3900, L100.0100, L500.2500 ####[facility] [address] [place], [address] Absolute Lymph 0.85 X10 3/uL Normal 0.83-4.51 [facility] Comment on above: Performed By: #### L 500.2500, L100.0100 ####[facility] [address] [place], [address] Absolute Neut 8.8 X10 3/uL High 2.0-7.7 [facility] Comment on above: Performed By: #### L 500.2500, L100.0100 ####[facility] [address] [place], [address] Basophils/100 WBC (Bld) 0.1 % Normal 0-1 [facility] Comment on above: Performed By: #### L 500.2500, L100.0100 ####[facility] [address] [place], [address] Eosinophils/100 WBC (Bld) 0.7 % Normal 0-5 [facility] Comment on above: Performed By: #### L 500.2500, L100.0100 ####[facility] [address] [place], [address] Erythrocyte distribution width (RBC) [Ratio] 14.4 % Normal 11.6-14.6 [facility] Comment on above: Performed By: #### L 500.2500, L100.0100 ####[facility] [address] [place], [address] Hematocrit (Bld) [Volume fraction] 32.1 % Low 40-54 [facility] Comment on above: Performed By: #### L 500.2500, L100.0100 ####[facility] [address] [place], [address] Hemoglobin (Bld) [Mass/Vol] 10.4 g/dL Low 13.0-16.5 [facility] Comment on above: Performed By: #### L 500.2500, L100.0100 ####[facility] [address] [place], [address] IG% 0.700 Normal 0.0-0.9 [facility] Comment on above: Result Comment: IG% - Immature Granulocytes (promyelocytes, myelocytes andmetamyelocytes) > 1% indicates that a LEFT SHIFT is Present. Performed By: #### L 500.2500, L100.0100 ####[facility] [address] [place], [address] Lymphocytes/100 WBC (Bld) 7.6 % Low 19-41 [facility] Comment on above: Performed By: #### L 500.2500, L100.0100 ####[facility] [address] [place], [address] MCH (RBC) [Entitic mass] 29.5 pg Normal 27.0-32.0 [facility] Comment on above: Performed By: #### L 500.2500, L100.0100 ####[facility] [address] [place], [address] MCHC (RBC) [Mass/Vol] 32.4 g/dL Normal 32-36 [facility] Comment on above: Performed By: #### L 500.2500, L100.0100 ####[facility] [address] [place], [address] MCV (RBC) [Entitic vol] 91.2 fL Normal 80-94 [facility] Comment on above: Performed By: #### L 500.2500, L100.0100 ####[facility] [address] [place], [address] Monocytes/100 WBC (Bld) 12.0 % High 0-10 [facility] Comment on above: Performed By: #### L 500.2500, L100.0100 ####[facility] [address] [place], [address] Neutrophils/100 WBC (Bld) 78.9 % High 47-70 [facility] Comment on above: Performed By: #### L 500.2500, L100.0100 ####[facility] [address] [place], [address] Nucleated RBC (Bld) [#/Vol] 0 10*3/uL Normal 0-5 [facility] Comment on above: Performed By: #### L 500.2500, L100.0100 ####[facility] [address] [place], [address] Platelet mean volume (Bld) [Entitic vol] 13.1 fL High 6.2-12.0 [facility] Comment on above: Performed By: #### L 500.2500, L100.0100 ####[facility] [address] [place], [address] Platelets (Bld) [#/Vol] 113 10*3/uL Low 150-450 [facility] Comment on above: Performed By: #### L 500.2500, L100.0100 ####[facility] [address] [place], [address] RBC (Bld) [#/Vol] 3.52 10*6/uL Low 4.6-6.2 [facility] Comment on above: Performed By: #### L 500.2500, L100.0100 ####[facility] [address] [place], [address] RDW SD 47.4 fl High 35.1-43.9 [facility] Comment on above: Performed By: #### L 500.2500, L100.0100 ####[facility] [address] [place], [address] WBC (Bld) [#/Vol] 11.2 10*3/uL High 4.4-11.0 [facility] Comment on above: Performed By: #### L 500.2500, L100.0100 ####[facility] [address] [place], [address] CVS/PCIREPORTon 12-02-2024 CVS/PCIREPORT Normal [facility] Carbon dioxide, total [Moles /volume] in Central venous bloodOrdered By: Rasheed Canela on 12-02-2024 CO2 [Moles/Vol] 20.5 mmol/L Low 21.0-32.0 [facility] Carbon dioxide, total [Moles /volume] in Central venous bloodOrdered By: Nickie Danielson on 12-02-2024 CO2 [Moles/Vol] 20.6 mmol/L Low 21.0-32.0 [facility] Chloride assayOrdered By: Afshin Canela on 12-02-2024 Chloride [Moles/Vol] 96 mmol/L Low 98-108 [facility] Chloride assayOrdered By: Korina Danielson on 12-02-2024 Chloride [Moles/Vol] 99 mmol/L 98-108 [facility] Emergency Department Summary on 12-02-2024 Emergency Department Summary Normal [facility] Eosinophil percentageOrdered By: Rasheedjulian Canela on 12-02-2024 Eosinophils/100 WBC (Bld) 0.8 % 0-5 [facility] Eosinophil percentageOrdered By: Nickie Danielson on 12-02-2024 Eosinophils/100 WBC (Bld) 0.7 % 0-5 [facility] Erythrocyte distribution wid th ratioOrdered By: Rasheed Canela on 12-02-2024 Erythrocyte distribution width (RBC) [Ratio] 14.1 % 11.6-14.6 [facility] Erythrocyte distribution wid th ratioOrdered By: Nickie Danielson on 12-02-2024 Erythrocyte distribution width (RBC) [Ratio] 14.4 % 11.6-14.6 [facility] Erythrocyte distribution wid th standard deviationOrdered By: Rasheed Canela on 12-02-2024 Erythrocyte distribution width (RBC) [Ratio] 45.8 fl High 35.1-43.9 [facility] Erythrocyte distribution wid th standard deviationOrdered By: Nickie Danielson on 12-02-2024 Erythrocyte distribution width (RBC) [Ratio] 47.4 fl High 35.1-43.9 [facility] Glomerular filtration rate ( GFR) estimation/1.73 sq m using serum, plasma, or whole bOrdered By: Rasheed Canela on 12-02-2024 GFR/1.73 sq M.predicted among non-blacks MDRD (S/P/Bld) [Vol rate/Area] 21 mL/min/{1.73_m2} Low >60 [facility] Glomerular filtration rate ( GFR) estimation/1.73 sq m using serum, plasma, or whole bOrdered By: Nickie Danielson on 12-02-2024 GFR/1.73 sq M.predicted among non-blacks MDRD (S/P/Bld) [Vol rate/Area] 21 mL/min/{1.73_m2} Low >60 [facility] Gl[facility] deOrdered By: Nickie Danielson on 12-02-2024 Glucose [Mass/Vol] 129 mg/dL High 74-106 [facility] H AND P Exam - Hospitaliston 12-02-2024 H&P Exam - Hospitalist Normal [facility] Hematocrit Auto (Bld) [Volum e fraction]Ordered By: Rasheed Canela on 12-02-2024 Hematocrit (Bld) [Volume fraction] 34.1 % Low 40-54 [facility] Hematocrit Auto (Bld) [Volum e fraction]Ordered By: Nickie Danielson on 12-02-2024 Hematocrit (Bld) [Volume fraction] 32.1 % Low 40-54 [facility] Hemoglobin measurementOrdere d By: Rasheed Canela on 12-02-2024 Hemoglobin (Bld) [Mass/Vol] 11.1 g/dL Low 13.0-16.5 [facility] Hemoglobin measurementOrdere d By: Nickie Danielson on 12-02-2024 Hemoglobin (Bld) [Mass/Vol] 10.4 g/dL Low 13.0-16.5 [facility] Immature granulocytes/100 WB C Auto (Bld)Ordered By: Rasheed Canela on 12-02-2024 Immature granulocytes/100 WBC (Bld) 0.600 % 0.0-0.9 [facility] Immature granulocytes/100 WB C Auto (Bld)Ordered By: Nickie Danielson on 12-02-2024 Immature granulocytes/100 WBC (Bld) 0.700 % 0.0-0.9 [facility] L501.4021on 12-02-2024 Trop T High Sen > [id number] Invalid Interpretation Code <=22 [facility] Comment on above: Result Comment: Crit ical Result(s) Called at: 2120 by: MOISE MENDIOLA??Results read back by same. Performed By: #### L 300.4310, L501.4021, L300.3900, L100.0100, L500.2500 ####[facility] [address] [place], [place], [id number] MCV (mean corpuscular volume ) determinationOrdered By: Rasheed Canela on 12-02-2024 MCV (RBC) [Entitic vol] 89.5 fL 80-94 [facility] MCV (mean corpuscular volume ) determinationOrdered By: Nickie Danielson on 12-02-2024 MCV (RBC) [Entitic vol] 91.2 fL 80-94 [facility] MR/CON.PCM.NEon 12-02-2024 MR/CON.PCM.NE Normal [facility] MRA Head ONLY without Contra ston 12-02-2024 MRA Head ONLY without Contrast Normal [facility] MRA Neck without Contraston 12-02-2024 MRA Neck without Contrast Normal [facility] Magnetic resonance imaging r eportOrdered By: Nghia Waters on 12-02-2024 Study report [facility] Mean corpuscular hemoglobin (MCH) determinationOrdered By: Rasheed Canela on 12-02-2024 MCH (RBC) [Entitic mass] 29.1 pg 27.0-32.0 [facility] Mean corpuscular hemoglobin (MCH) determinationOrdered By: Nickie Danielson on 12-02-2024 MCH (RBC) [Entitic mass] 29.5 pg 27.0-32.0 [facility] Monocyte percentageOrdered B y: Rasheed Canela on 12-02-2024 Monocytes/100 WBC (Bld) 12.7 % High 0-10 [facility] Monocyte percentageOrdered B y: Nickie Danielson on 12-02-2024 Monocytes/100 WBC (Bld) 12.0 % High 0-10 [facility] Neutrophil percentageOrdered By: Rasheed Canela on 12-02-2024 Neutrophils/100 WBC (Bld) 76.7 % High 47-70 [facility] Neutrophil percentageOrdered By: Nickie Danielson on 12-02-2024 Neutrophils/100 WBC (Bld) 78.9 % High 47-70 [facility] Partial Thromboplast Timeon 12-02-2024 aPTT Coag (Bld) [Time] 31.6 s Normal 24.1-36.2 [facility] Comment on above: Performed By: #### L 300.4310, L501.4021, L300.3900, L100.0100, L500.2500 ####[facility] [address] [place], [address] Platelet countOrdered By: Afshin Canela on 12-02-2024 Platelets (Bld) [#/Vol] 134 10*3/uL Low 150-450 [facility] Platelet countOrdered By: Korina Danielson on 12-02-2024 Platelets (Bld) [#/Vol] 113 10*3/uL Low 150-450 [facility] Potassium measurement (mass/ volume)Ordered By: Rasheed Canela on 12-02-2024 Potassium (Unsp spec) [Mass/Vol] 4.6 mmol/L 3.3-5.1 [facility] Potassium measurement (mass/ volume)Ordered By: Nickie Danielson on 12-02-2024 Potassium (Unsp spec) [Mass/Vol] 4.8 mmol/L 3.3-5.1 [facility] Prothrombin Time w/INRon INR Coag (PPP) [Relative time] 1.1 {INR} Normal [facility] Comment on above: Performed By: #### L 300.4310, L501.4021, L300.3900, L100.0100, L500.2500 ####[facility] [address] [place], [place], [phone] PT Coag (PPP) [Time] 14.6 s Normal 11.7-14.9 [facility] Comment on above: Performed By: #### L 300.4310, L501.4021, L300.3900, L100.0100, L500.2500 ####[facility] [address] [place], [place], [id number] Prothrombin timeOrdered By: Rasheed Canela on 12-02-2024 PT Coag (PPP) [Time] 14.6 s 11.7-14.9 [facility] RBC Auto (Bld) [#/Vol]Ordere d By: Rasheed Canela on 12-02-2024 RBC (Bld) [#/Vol] 3.81 10*6/uL Low 4.6-6.2 [facility] RBC Auto (Bld) [#/Vol]Ordere d By: Nickie Danielson on 12-02-2024 RBC (Bld) [#/Vol] 3.52 10*6/uL Low 4.6-6.2 [facility] Serum creatinine measurement (mass/volume)Ordered By: Rasheed Canela on 12-02-2024 Creatinine [Mass/Vol] 2.90 mg/dL High 0.70-1.20 [facility] Serum creatinine measurement (mass/volume)Ordered By: Nickie Danielson on 12-02-2024 Creatinine [Mass/Vol] 2.93 mg/dL High 0.70-1.20 [facility] Serum glucose measurement (m ass/volume)Ordered By: Rasheed Canela on 12-02-2024 Glucose [Mass/Vol] 175 mg/dL High 70-99 [facility] Serum glucose measurement (m ass/volume)Ordered By: Nickie Danielson on 12-02-2024 Glucose [Mass/Vol] 138 mg/dL High 70-99 [facility] Serum or plasma calcium francine urement (mass/volume)Ordered By: Rasheed Canela on 12-02-2024 Calcium [Mass/Vol] 9.1 mg/dL 7.6-11.0 [facility] Serum or plasma calcium francine urement (mass/volume)Ordered By: Nickie Danielson on 12-02-2024 Calcium [Mass/Vol] 9.3 mg/dL 7.6-11.0 [facility] Serum or plasma urea nitroge n measurement (mass/volume)Ordered By: Rasheed Canela on 12-02-2024 Urea nitrogen [Mass/Vol] 52 mg/dL High 08-19 [facility] Serum or plasma urea nitroge n measurement (mass/volume)Ordered By: Nickie Danielson on 12-02-2024 Urea nitrogen [Mass/Vol] 50 mg/dL High 08-19 [facility] Sodium levelOrdered By: Rasheed Canela on 12-02-2024 Sodium [Moles/Vol] 131 mmol/L Low 133-145 [facility] Sodium levelOrdered By: Johanna Danielson on 12-02-2024 Sodium [Moles/Vol] 133 mmol/L 133-145 [facility] White blood cell (WBC) count Ordered By: Rasheed Canela on 12-02-2024 WBC (Bld) [#/Vol] 12.7 10*3/uL High 4.4-11.0 [facility] White blood cell (WBC) count Ordered By: Nickie Danielson on 12-02-2024 WBC (Bld) [#/Vol] 11.2 10*3/uL High 4.4-11.0 [facility] 12 Lead EKGon 12-01-2024 12 Lead EKG Normal [facility] Bedside Glucoseon 12-01-2024 FINGERSTICK GLU 148 mg/dL High 74-106 [facility] Comment on above: Result Comment: WILDA BARROSO OF PATIENT CARE PER NURSING PROTOCOL Performed By: #### L 501.080 ####[facility] [address] [place], [address] FINGERSTICK GLU 203 mg/dL High 74-106 [facility] Comment on above: Result Comment: WILDA GEMENT OF PATIENT CARE PER NURSING PROTOCOL Performed By: #### L 501.080 ####[facility] [address] [place], [address] FINGERSTICK GLU 153 mg/dL High -106 [facility] Comment on above: Result Comment: WILDA GEMENT OF PATIENT CARE PER NURSING PROTOCOL Performed By: #### L 501.080 ####[facility] [address] [place], [address] FINGERSTICK GLU 187 mg/dL High -106 [facility] Comment on above: Result Comment: WILDA GEMENT OF PATIENT CARE PER NURSING PROTOCOL Performed By: #### L 501.080 ####[facility] [address] [place], [address] FINGERSTICK GLU 223 mg/dL High -106 [facility] Comment on above: Result Comment: WILDA GEMENT OF PATIENT CARE PER NURSING PROTOCOL Performed By: #### L 501.080 ####[facility] [address] [place], [address] Bilirubin, totalOrdered By: Jose Hay on 12-01-2024 Bilirubin [Mass/Vol] 1.07 mg/dL 0.00-1.30 [facility] CBC-Complete Blood Cnt No Di ffon 12-01-2024 Erythrocyte distribution width (RBC) [Ratio] 14.0 % Normal 11.6-14.6 [facility] Comment on above: Performed By: #### L 100.0500, L500.4050 ####[facility] [address] [place], [address] Hematocrit (Bld) [Volume fraction] 33.2 % Low 40-54 [facility] Comment on above: Performed By: #### L 100.0500, L500.4050 ####[facility] [address] [place], [address] Hemoglobin (Bld) [Mass/Vol] 10.8 g/dL Low 13.0-16.5 [facility] Comment on above: Performed By: #### L 100.0500, L500.4050 ####[facility] [address] [place], [address] MCH (RBC) [Entitic mass] 29.3 pg Normal 27.0-32.0 [facility] Comment on above: Performed By: #### L 100.0500, L500.4050 ####[facility] [address] [place], [address] MCHC (RBC) [Mass/Vol] 32.5 g/dL Normal 32-36 [facility] Comment on above: Performed By: #### L 100.0500, L500.4050 ####[facility] [address] [place], [address] MCV (RBC) [Entitic vol] 90.2 fL Normal 80-94 [facility] Comment on above: Performed By: #### L 100.0500, L500.4050 ####[facility] [address] [place], [address] Platelet mean volume (Bld) [Entitic vol] 12.7 fL High 6.2-12.0 [facility] Comment on above: Performed By: #### L 100.0500, L500.4050 ####[facility] [address] [place], [address] Platelets (Bld) [#/Vol] 142 10*3/uL Low 150-450 [facility] Comment on above: Performed By: #### L 100.0500, L500.4050 ####[facility] [address] [place], [address] RBC (Bld) [#/Vol] 3.68 10*6/uL Low 4.6-6.2 [facility] Comment on above: Performed By: #### L 100.0500, L500.4050 ####[facility] [address] [place], [address] RDW SD 45.8 fl High 35.1-43.9 [facility] Comment on above: Performed By: #### L 100.0500, L500.4050 ####[facility] [address] [place], [address] WBC (Bld) [#/Vol] 14.6 10*3/uL High 4.4-11.0 [facility] Comment on above: Performed By: #### L 100.0500, L500.4050 ####[facility] [address] [place], [address] Cardiac rehabilitation repor tOrdered By: Natacha Fermin on 12-01-2024 Study report [facility] Comprehensive Metabolic Prof ilon 12-01-2024 Albumin [Mass/Vol] 3.7 g/dL Normal 3.4-4.8 [facility] Comment on above: Performed By: #### L 100.0500, L500.4050 ####[facility] [address] [place], [address] Albumin/Globulin [Mass ratio] 1.5 {ratio} Normal 0.9-2.4 [facility] Comment on above: Performed By: #### L 100.0500, L500.4050 ####[facility] [address] [place], [address] ALK PHOS 82 U/L Normal 40-129 [facility] Comment on above: Performed By: #### L 100.0500, L500.4050 ####[facility] [address] [place], [address] ALT [Catalytic activity/Vol] 77 U/L High <=46 [facility] Comment on above: Performed By: #### L 100.0500, L500.4050 ####[facility] [address] [place] [address] AST [Catalytic activity/Vol] 497 U/L High <=37 [facility] Comment on above: Performed By: #### L 100.0500, L500.4050 ####[facility] [address] [place], [address] Bilirubin [Mass/Vol] 1.07 mg/dL Normal 0.00-1.30 [facility] Comment on above: Performed By: #### L 100.0500, L500.4050 ####[facility] [address] [place], [address] BUN/CRE 14.2 RATIO Normal 10-20 [facility] Comment on above: Performed By: #### L 100.0500, L500.4050 ####[facility] [address] [place], [address] Calcium [Mass/Vol] 8.7 mg/dL Normal 7.6-11.0 [facility] Comment on above: Performed By: #### L 100.0500, L500.4050 ####[facility] [address] [place], [address] Chloride [Moles/Vol] 100 mmol/L Normal 98-108 [facility] Comment on above: Performed By: #### L 100.0500, L500.4050 ####[facility] [address] [place], [address] CO2 [Moles/Vol] 20.3 mmol/L Low 21.0-32.0 [facility] Comment on above: Performed By: #### L 100.0500, L500.4050 ####[facility] [address] [place], [address] Creatinine [Mass/Vol] 3.16 mg/dL High 0.70-1.20 [facility] Comment on above: Performed By: #### L 100.0500, L500.4050 ####[facility] [address] [place], [address] ECRCL 23.23 ml/min Low 50-250 [facility] Comment on above: Performed By: #### L 100.0500, L500.4050 ####[facility] [address] [place], [address] GAP 14 Normal 5-15 [facility] Comment on above: Performed By: #### L 100.0500, L500.4050 ####[facility] [address] [place], [address] GFR/1.73 sq M.predicted among non-blacks MDRD (S/P/Bld) [Vol rate/Area] 19 mL/min/{1.73_m2} Low >60 [facility] Comment on above: Result Comment: mL/m in/1.73m2 CKD-EPI Creatinine Equation (2020) Performed By: #### L 100.0500, L500.4050 ####[facility] [address] [place], [address] Globulin (S) [Mass/Vol] 2.4 g/dL Normal 2.2-4.2 [facility] Comment on above: Performed By: #### L 100.0500, L500.4050 ####[facility] [address] [place], [address] Glucose [Mass/Vol] 157 mg/dL High 70-99 [facility] Comment on above: Performed By: #### L 100.0500, L500.4050 ####[facility] [address] [place], [address] Potassium [Moles/Vol] 5.0 mmol/L Normal 3.3-5.1 [facility] Comment on above: Performed By: #### L 100.0500, L500.4050 ####[facility] [address] [place], [address] Sodium [Moles/Vol] 134 mmol/L Normal 133-145 [facility] Comment on above: Performed By: #### L 100.0500, L500.4050 ####[facility] [address] [place], [address] T PROT 6.0 g/dL Normal 5.9-8.4 [facility] Comment on above: Performed By: #### L 100.0500, L500.4050 ####[facility] [address] [place], [address] Urea nitrogen [Mass/Vol] 45 mg/dL High 4-19 [facility] Comment on above: Performed By: #### L 100.0500, L500.4050 ####[facility] [address] [place], [address] Echo Limited w/Contraston Echo Limited w/Contrast Normal [facility] Electrocardiogram reportOrde red By: Marcin Araujo on 12-01-2024 EKG study [facility] Work Phone: HH, Hemoglobin AND Hematocri ton 12-01-2024 Hematocrit (Bld) [Volume fraction] 32.7 % Low 40-54 [facility] Comment on above: Performed By: #### L 100.0600 ####[facility] [address] [place], [address] Hemoglobin (Bld) [Mass/Vol] 10.6 g/dL Low 13.0-16.5 [facility] Comment on above: Performed By: #### L 100.0600 ####[facility] [address] [place], [address] Limited echocardiogram repor tOrdered By: Lance Espino on 12-01-2024 Study report [facility] Other Phone: No Panel InformationOrdered By: Jose Hay on 12-01-2024 497 U/L High <38 [facility] STROKE Brain/Head without Co nton 12-01-2024 STROKE Brain/Head without Cont Normal [facility] Serum globulin measurementOr dered By: Jose Hay on 12-01-2024 Globulin (S) [Mass/Vol] 2.4 g/dL 2.2-4.2 [facility] Serum or plasma alanine guerrero otransferase (ALT) measurementOrdered By: Jose Hay on 12-01-2024 ALT [Catalytic activity/Vol] 77 U/L High <47 [facility] Serum or plasma albumin francine urement (mass/volume)Ordered By: Jose Hay on 12-01-2024 Albumin [Mass/Vol] 3.7 g/dL 3.4-4.8 [facility] Serum or plasma albumin/glob ulin mass ratioOrdered By: Jose Hay on 12-01-2024 Albumin/Globulin [Mass ratio] 1.5 {ratio} 0.9-2.4 [facility] Serum or plasma alkaline bell sphatase measurementOrdered By: Jose Hay on 12-01-2024 ALP [Catalytic activity/Vol] 82 U/L 40-129 [facility] Total proteinOrdered By: Emmanuel Hay on 12-01-2024 Protein [Mass/Vol] 6.0 g/dL 5.9-8.4 [facility] ACT Activated Clotting Timeo n 11-30-2024 ACTk CLOT TIME 187 sec High 74-137 [facility] Comment on above: Performed By: #### L 9100.0100 ####[facility] [address] [place], [address] ACTk CLOT TIME 176 sec High 74-137 [facility] Comment on above: Performed By: #### L 9100.0100 ####[facility] [address] [place], [place], [id number] Absolute lymphocyte countOrd ered By: Isael Bernabe on 11-30-2024 Lymphocytes Auto (Unsp spec) [#/Vol] 1.93 10*3/uL 0.83-4.51 [facility] Activated partial thrombopla stin time (aPTT) in platelet poor plasma by coagulation aOrdered By: Isael Bernabe on 11-30-2024 aPTT Coag (PPP) [Time] 112.9 s High 24.1-36.2 [facility] Anion gap in Serum or Plasma Ordered By: Isael Bernabe on 11-30-2024 Anion gap [Moles/Vol] 19 mmol/L High 5-15 [facility] Automated lymphocyte count a s percentage of total leukocytesOrdered By: Isael Bernabe on 11-30-2024 Lymphocytes/100 WBC Auto (Unsp spec) 10.1 % Low 19-41 [facility] BUN/creatinine ratioOrdered By: Isael Bernabe on 11-30-2024 Urea nitrogen/Creatinine [Mass ratio] 14.4 mg/mg 10-20 [facility] Basic Metabolic Profile (BMP )on 11-30-2024 BUN/CRE 14.4 RATIO Normal -20 [facility] Comment on above: Performed By: #### L 300.4310, L500.2500, L501.4021, L300.3900, L100.0100 ####[facility] [address] [place], [place], [id number] Calcium [Mass/Vol] 9.5 mg/dL Normal 7.6-11.0 [facility] Comment on above: Performed By: #### L 300.4310, L500.2500, L501.4021, L300.3900, L100.0100 ####[facility] [address] [place], [address] Chloride [Moles/Vol] 98 mmol/L Normal 98-108 [facility] Comment on above: Performed By: #### L 300.4310, L500.2500, L501.4021, L300.3900, L100.0100 ####[facility] [address] [place], [address] CO2 [Moles/Vol] 18.3 mmol/L Low 21.0-32.0 [facility] Comment on above: Performed By: #### L 300.4310, L500.2500, L501.4021, L300.3900, L100.0100 ####[facility] [address] [place], [address] Creatinine [Mass/Vol] 3.10 mg/dL High 0.70-1.20 [facility] Comment on above: Performed By: #### L 300.4310, L500.2500, L501.4021, L300.3900, L100.0100 ####[facility] [address] [place], [address] GAP 19 High 5-15 [facility] Comment on above: Performed By: #### L 300.4310, L500.2500, L501.4021, L300.3900, L100.0100 ####[facility] [address] [place], [address] GFR/1.73 sq M.predicted among non-blacks MDRD (S/P/Bld) [Vol rate/Area] 20 mL/min/{1.73_m2} Low >60 [facility] Comment on above: Result Comment: mL/m in/1.73m2 CKD-EPI Creatinine Equation (2020) Performed By: #### L 300.4310, L500.2500, L501.4021, L300.3900, L100.0100 ####[facility] [address] [place], [address] Glucose [Mass/Vol] 328 mg/dL High 70-99 [facility] Comment on above: Performed By: #### L 300.4310, L500.2500, L501.4021, L300.3900, L100.0100 ####[facility] [address] [place], [address] Potassium [Moles/Vol] 4.4 mmol/L Normal 3.3-5.1 [facility] Comment on above: Performed By: #### L 300.4310, L500.2500, L501.4021, L300.3900, L100.0100 ####[facility] [address] [place], [address] Sodium [Moles/Vol] 135 mmol/L Normal 133-145 [facility] Comment on above: Performed By: #### L 300.4310, L500.2500, L501.4021, L300.3900, L100.0100 ####[facility] [address] [place], [address] Urea nitrogen [Mass/Vol] 45 mg/dL High 4-19 [facility] Comment on above: Performed By: #### L 300.4310, L500.2500, L501.4021, L300.3900, L100.0100 ####[facility] [address] [place], [address] Basophil percentageOrdered B y: Isael Bernabe on 11-30-2024 Basophils/100 WBC (Bld) 0.2 % 0-1 [facility] Bedside Glucoseon 11-30-2024 FINGERSTICK GLU 167 mg/dL High 74-106 [facility] Comment on above: Result Comment: WILDA BARROSO OF PATIENT CARE PER NURSING PROTOCOL Performed By: #### L 501.080 ####[facility] [address] [place], [address] CBC W/Diff, Automatedon 11-02 Absolute Lymph 1.93 X10 3/uL Normal 0.83-4.51 [facility] Comment on above: Performed By: #### L 300.4310, L500.2500, L501.4021, L300.3900, L100.0100 ####[facility] [address] [place], [address] Absolute Neut 15.5 X10 3/uL High 2.0-7.7 [facility] Comment on above: Performed By: #### L 300.4310, L500.2500, L501.4021, L300.3900, L100.0100 ####[facility] [address] [place], [address] Basophils/100 WBC (Bld) 0.2 % Normal 0-1 [facility] Comment on above: Performed By: #### L 300.4310, L500.2500, L501.4021, L300.3900, L100.0100 ####[facility] [address] [place], [address] Eosinophils/100 WBC (Bld) 0.4 % Normal 0-5 [facility] Comment on above: Performed By: #### L 300.4310, L500.2500, L501.4021, L300.3900, L100.0100 ####[facility] [address] [place], [address] Erythrocyte distribution width (RBC) [Ratio] 13.5 % Normal 11.6-14.6 [facility] Comment on above: Performed By: #### L 300.4310, L500.2500, L501.4021, L300.3900, L100.0100 ####[facility] [address] [place], [address] Hematocrit (Bld) [Volume fraction] 39.6 % Low 40-54 [facility] Comment on above: Performed By: #### L 300.4310, L500.2500, L501.4021, L300.3900, L100.0100 ####[facility] [address] [place], [address] Hemoglobin (Bld) [Mass/Vol] 12.5 g/dL Low 13.0-16.5 [facility] Comment on above: Performed By: #### L 300.4310, L500.2500, L501.4021, L300.3900, L100.0100 ####[facility] [address] [place], [address] IG% 0.700 Normal 0.0-0.9 [facility] Comment on above: Result Comment: IG% - Immature Granulocytes (promyelocytes, myelocytes andmetamyelocytes) > 1% indicates that a LEFT SHIFT is Present. Performed By: #### L 300.4310, L500.2500, L501.4021, L300.3900, L100.0100 ####[facility] [address] [place], [address] Lymphocytes/100 WBC (Bld) 10.1 % Low 19-41 [facility] Comment on above: Performed By: #### L 300.4310, L500.2500, L501.4021, L300.3900, L100.0100 ####[facility] [address] [place], [address] MCH (RBC) [Entitic mass] 29.3 pg Normal 27.0-32.0 [facility] Comment on above: Performed By: #### L 300.4310, L500.2500, L501.4021, L300.3900, L100.0100 ####[facility] [address] [place], [address] MCHC (RBC) [Mass/Vol] 31.6 g/dL Low 32-36 [facility] Comment on above: Performed By: #### L 300.4310, L500.2500, L501.4021, L300.3900, L100.0100 ####[facility] [address] [place], [address] MCV (RBC) [Entitic vol] 93.0 fL Normal 80-94 [facility] Comment on above: Performed By: #### L 300.4310, L500.2500, L501.4021, L300.3900, L100.0100 ####[facility] [address] [place], [address] Monocytes/100 WBC (Bld) 7.7 % Normal 0-10 [facility] Comment on above: Performed By: #### L 300.4310, L500.2500, L501.4021, L300.3900, L100.0100 ####[facility] [address] [place], [address] Neutrophils/100 WBC (Bld) 80.9 % High 47-70 [facility] Comment on above: Performed By: #### L 300.4310, L500.2500, L501.4021, L300.3900, L100.0100 ####[facility] [address] [place], [address] Nucleated RBC (Bld) [#/Vol] 0.1 10*3/uL Normal 0-5 [facility] Comment on above: Performed By: #### L 300.4310, L500.2500, L501.4021, L300.3900, L100.0100 ####[facility] [address] [place], [address] Platelet mean volume (Bld) [Entitic vol] 13.7 fL High 6.2-12.0 [facility] Comment on above: Performed By: #### L 300.4310, L500.2500, L501.4021, L300.3900, L100.0100 ####[facility] [address] [place], [address] Platelets (Bld) [#/Vol] 168 10*3/uL Normal 150-450 [facility] Comment on above: Performed By: #### L 300.4310, L500.2500, L501.4021, L300.3900, L100.0100 ####[facility] [address] [place], [address] RBC (Bld) [#/Vol] 4.26 10*6/uL Low 4.6-6.2 [facility] Comment on above: Performed By: #### L 300.4310, L500.2500, L501.4021, L300.3900, L100.0100 ####[facility] [address] [place], [address] RDW SD 45.9 fl High 35.1-43.9 [facility] Comment on above: Performed By: #### L 300.4310, L500.2500, L501.4021, L300.3900, L100.0100 ####[facility] [address] [place], [address] WBC (Bld) [#/Vol] 19.2 10*3/uL High 4.4-11.0 [facility] Comment on above: Performed By: #### L 300.4310, L500.2500, L501.4021, L300.3900, L100.0100 ####[facility] [address] [place], [address] CBC-Complete Blood Cnt No Di ffon 11-30-2024 HCT Normal 40-54 [facility] Comment on above: Result Comment: NO S PECIMEN COLLECTED Performed By: #### L 100.0500 ####[facility] [address] [place], [address] HGB Normal 13.0-16.5 [facility] Comment on above: Result Comment: NO S PECIMEN COLLECTED Performed By: #### L 100.0500 ####[facility] [address] [place], [address] MCH Normal 27.0-32.0 [facility] Comment on above: Result Comment: NO S PECIMEN COLLECTED Performed By: #### L 100.0500 ####[facility] [address] [place], [address] MCHC Normal 32-36 [facility] Comment on above: Result Comment: NO S PECIMEN COLLECTED Performed By: #### L 100.0500 ####[facility] [address] [place], [address] MCV Normal 80-94 [facility] Comment on above: Result Comment: NO S PECIMEN COLLECTED Performed By: #### L 100.0500 ####[facility] [address] [place], [address] PLT Normal 150-450 [facility] Comment on above: Result Comment: NO S PECIMEN COLLECTED Performed By: #### L 100.0500 ####[facility] [address] [place], [address] RBC Normal 4.6-6.2 [facility] Comment on above: Result Comment: NO S PECIMEN COLLECTED Performed By: #### L 100.0500 ####[facility] [address] [place], [address] RDW CV Normal 11.6-14.6 [facility] Comment on above: Result Comment: NO S PECIMEN COLLECTED Performed By: #### L 100.0500 ####[facility] [address] [place], [address] RDW SD Normal 35.1-43.9 [facility] Comment on above: Result Comment: NO S PECIMEN COLLECTED Performed By: #### L 100.0500 ####[facility] [address] [place], [address] WBC Normal 4.4-11.0 [facility] Comment on above: Result Comment: NO S PECIMEN COLLECTED Performed By: #### L 100.0500 ####[facility] [address] [place], [address] Carbon dioxide, total [Moles /volume] in Central venous bloodOrdered By: Isael Bernabe on 11-30-2024 CO2 [Moles/Vol] 18.3 mmol/L Low 21.0-32.0 [facility] Chest 1 View (Portable)on Chest 1 View (Portable) Normal [facility] Chloride assayOrdered By: Jaylen Bernabe on 11-30-2024 Chloride [Moles/Vol] 98 mmol/L 98-108 [facility] Consultation - Cardiologyon 11-30-2024 Consultation - Cardiology Normal [facility] Emergency Department Summary on 11-30-2024 Emergency Department Summary Normal [facility] Eosinophil percentageOrdered By: Isael Bernabe on 11-30-2024 Eosinophils/100 WBC (Bld) 0.4 % 0-5 [facility] Erythrocyte distribution wid th ratioOrdered By: Isael Bernabe on 11-30-2024 Erythrocyte distribution width (RBC) [Ratio] 13.5 % 11.6-14.6 [facility] Erythrocyte distribution wid th standard deviationOrdered By: Isael Bernabe on 11-30-2024 Erythrocyte distribution width (RBC) [Ratio] 45.9 fl High 35.1-43.9 [facility] Glomerular filtration rate ( GFR) estimation/1.73 sq m using serum, plasma, or whole bOrdered By: Isael Bernabe on 11-30-2024 GFR/1.73 sq M.predicted among non-blacks MDRD (S/P/Bld) [Vol rate/Area] 20 mL/min/{1.73_m2} Low >60 [facility] H AND P Exam - Hospitaliston 11-30-2024 H&P Exam - Hospitalist Normal [facility] Hematocrit Auto (Bld) [Volum e fraction]Ordered By: Isael Bernabe on 11-30-2024 Hematocrit (Bld) [Volume fraction] 39.6 % Low 40-54 [facility] Hemoglobin A1con 11-30-2024 HbA1c (Bld) [Mass fraction] 7.0 % High <=5.6 [facility] Comment on above: Result Comment: Norm al < 5.7 % Prediabetic 5.7 - 6.4 % Diabetic >or= 6.5 % Please note range changes. Performed By: #### L 501.9932 ####[facility] [address] [place], [place], [id number] Hemoglobin A1c percentageOrd ered By: Abraham Ridley on 11-30-2024 HbA1c (Bld) [Mass fraction] 7.0 % High <5.7 [facility] Hemoglobin measurementOrdere d By: Isael Bernabe on 11-30-2024 Hemoglobin (Bld) [Mass/Vol] 12.5 g/dL Low 13.0-16.5 [facility] Immature granulocytes/100 WB C Auto (Bld)Ordered By: Isael Bernabe on 11-30-2024 Immature granulocytes/100 WBC (Bld) 0.700 % 0.0-0.9 [facility] L501.4021on 11-30-2024 Trop T High Sen 61 ng/L Invalid Interpretation Code <=22 [facility] Comment on above: Result Comment: Crit ical Result(s) Called at: 1621 by: MOISE MEDINA??Results read back by same. Performed By: #### L 300.4310, L500.2500, L501.4021, L300.3900, L100.0100 ####[facility] [address] [place], [place], [id number] MCV (mean corpuscular volume ) determinationOrdered By: Isael Bernabe on 11-30-2024 MCV (RBC) [Entitic vol] 93.0 fL 80-94 [facility] MR/QUALITYon 11-30-2024 MR/QUALITY Normal [facility] Mean corpuscular hemoglobin (MCH) determinationOrdered By: Isael Bernabe on 11-30-2024 MCH (RBC) [Entitic mass] 29.3 pg 27.0-32.0 [facility] Monocyte percentageOrdered B y: Isael Bernabe on 11-30-2024 Monocytes/100 WBC (Bld) 7.7 % 0-10 [facility] Neutrophil percentageOrdered By: Isael Bernabe on 11-30-2024 Neutrophils/100 WBC (Bld) 80.9 % High 47-70 [facility] Partial Thromboplast Timeon 11-30-2024 aPTT Coag (Bld) [Time] 112.9 s Invalid Interpretation Code 24.1-36.2 [facility] Comment on above: Result Comment: CRIT ICAL VALUE CALLED TO CAITLIN ARASH11/30/24 1720 Krysta Turcios.RESULTS READ BACK BY SAME. Performed By: #### L 300.4310, L500.2500, L501.4021, L300.3900, L100.0100 ####[facility] [address] [place], [address] Platelet countOrdered By: Jaylen Bernabe on 11-30-2024 Platelets (Bld) [#/Vol] 168 10*3/uL 150-450 [facility] Potassium measurement (mass/ volume)Ordered By: Isael Bernabe on 11-30-2024 Potassium (Unsp spec) [Mass/Vol] 4.4 mmol/L 3.3-5.1 [facility] Prothrombin Time w/INRon INR Coag (PPP) [Relative time] 1.3 {INR} Normal [facility] Comment on above: Performed By: #### L 300.4310, L500.2500, L501.4021, L300.3900, L100.0100 ####[facility] [address] [place], [address] PT Coag (PPP) [Time] 16.1 s High 11.7-14.9 [facility] Comment on above: Performed By: #### L 300.4310, L500.2500, L501.4021, L300.3900, L100.0100 ####[facility] [address] [place], [address] Prothrombin timeOrdered By: Isael Bernabe on 11-30-2024 PT Coag (PPP) [Time] 16.1 s High 11.7-14.9 [facility] RBC Auto (Bld) [#/Vol]Ordere d By: Isael Bernabe on 11-30-2024 RBC (Bld) [#/Vol] 4.26 10*6/uL Low 4.6-6.2 [facility] Serum creatinine measurement (mass/volume)Ordered By: Isael Bernabe on 11-30-2024 Creatinine [Mass/Vol] 3.10 mg/dL High 0.70-1.20 [facility] Serum glucose measurement (m ass/volume)Ordered By: Isael Bernabe on 11-30-2024 Glucose [Mass/Vol] 328 mg/dL High 70-99 [facility] Serum or plasma calcium francine urement (mass/volume)Ordered By: Isael Bernabe on 11-30-2024 Calcium [Mass/Vol] 9.5 mg/dL 7.6-11.0 [facility] Serum or plasma urea nitroge n measurement (mass/volume)Ordered By: Isael Bernabe on 11-30-2024 Urea nitrogen [Mass/Vol] 45 mg/dL High 4-19 [facility] Sodium levelOrdered By: Isael Bernabe on 11-30-2024 Sodium [Moles/Vol] 135 mmol/L 133-145 [facility] Troponin T HS 2 HRon 025 Trop T High Sen Normal <=22 [facility] Comment on above: Result Comment: [employer] crews via OM: Ordered Performed By: #### L 499.0042 ####[facility] [address] [place], [place], [id number] Troponin T HS 4 HRon 025 Trop T High Sen Normal <=22 [facility] Comment on above: Result Comment: [employer] via OM: Ordered Performed By: #### L 499.0043 ####[facility] [address] [place], [place], [id number] Troponin T.cardiac [Mass/vol ume] in Serum or Plasma by High sensitivity methodOrdered By: Isael Bernabe on 11-30-2024 Troponin T.cardiac High sensitivity method [Mass/Vol] 61 ng/L High <22 [facility] White blood cell (WBC) count Ordered By: Isael Bernabe on 11-30-2024 WBC (Bld) [#/Vol] 19.2 10*3/uL High 4.4-11.0 [facility] ACT Activated Clotting Timeo n 11-28-2024 ACTk CLOT TIME 227 sec High 74-137 [facility] Comment on above: Performed By: #### L 9100.0100 ####[facility] [address] [place], [address] ACTk CLOT TIME 205 sec High 74-137 [facility] Comment on above: Performed By: #### L 9100.0100 ####[facility] [address] [place], [address] Anion gap in Serum or Plasma Ordered By: Jose Hay on 11-28-2024 Anion gap [Moles/Vol] 13 mmol/L 5-15 [facility] BUN/creatinine ratioOrdered By: Jose Hay on 11-28-2024 Urea nitrogen/Creatinine [Mass ratio] 15.2 mg/mg 10-20 [facility] Bilirubin, totalOrdered By: Jose Hay on 11-28-2024 Bilirubin [Mass/Vol] 0.78 mg/dL 0.00-1.30 [facility] CBC-Complete Blood Cnt No Di ffon 11-28-2024 Erythrocyte distribution width (RBC) [Ratio] 13.6 % Normal 11.6-14.6 [facility] Comment on above: Performed By: #### L 500.4050, L100.0500 ####[facility] [address] [place], [address] Hematocrit (Bld) [Volume fraction] 35.3 % Low 40-54 [facility] Comment on above: Performed By: #### L 500.4050, L100.0500 ####[facility] [address] [place], [address] Hemoglobin (Bld) [Mass/Vol] 11.3 g/dL Low 13.0-16.5 [facility] Comment on above: Performed By: #### L 500.4050, L100.0500 ####[facility] [address] [place], [address] MCH (RBC) [Entitic mass] 29.4 pg Normal 27.0-32.0 [facility] Comment on above: Performed By: #### L 500.4050, L100.0500 ####[facility] [address] [place], [address] MCHC (RBC) [Mass/Vol] 32.0 g/dL Normal 32-36 [facility] Comment on above: Performed By: #### L 500.4050, L100.0500 ####[facility] [address] [place], [address] MCV (RBC) [Entitic vol] 91.7 fL Normal 80-94 [facility] Comment on above: Performed By: #### L 500.4050, L100.0500 ####[facility] [address] [place], [address] Platelet mean volume (Bld) [Entitic vol] 12.6 fL High 6.2-12.0 [facility] Comment on above: Performed By: #### L 500.4050, L100.0500 ####[facility] [address] [place], [address] Platelets (Bld) [#/Vol] 108 10*3/uL Low 150-450 [facility] Comment on above: Performed By: #### L 500.4050, L100.0500 ####[facility] [address] [place], [address] RBC (Bld) [#/Vol] 3.85 10*6/uL Low 4.6-6.2 [facility] Comment on above: Performed By: #### L 500.4050, L100.0500 ####[facility] [address] [place], [address] RDW SD 46.1 fl High 35.1-43.9 [facility] Comment on above: Performed By: #### L 500.4050, L100.0500 ####[facility] [address] [place], [address] WBC (Bld) [#/Vol] 7.1 10*3/uL Normal 4.4-11.0 [facility] Comment on above: Performed By: #### L 500.4050, L100.0500 ####[facility] [address] [place], [address] Carbon dioxide, total [Moles /volume] in Central venous bloodOrdered By: Jose Hay on 11-28-2024 CO2 [Moles/Vol] 23.7 mmol/L 21.0-32.0 [facility] Chloride assayOrdered By: Harsh Hay on 11-28-2024 Chloride [Moles/Vol] 102 mmol/L 98-108 [facility] Comprehensive Metabolic Prof ilon 11-28-2024 Albumin [Mass/Vol] 3.8 g/dL Normal 3.4-4.8 [facility] Comment on above: Performed By: #### L 500.4050, L100.0500 ####[facility] [address] [place], [address] Albumin/Globulin [Mass ratio] 1.4 {ratio} Normal 0.9-2.4 [facility] Comment on above: Performed By: #### L 500.4050, L100.0500 ####[facility] [address] [place], [address] ALK PHOS 93 U/L Normal 40-129 [facility] Comment on above: Performed By: #### L 500.4050, L100.0500 ####[facility] [address] [place], [address] ALT [Catalytic activity/Vol] 27 U/L Normal <=46 [facility] Comment on above: Result Comment: Hemo lysis present, Results??could be affected.?? Performed By: #### L 500.4050, L100.0500 ####[facility] [address] [place], [address] AST [Catalytic activity/Vol] 33 U/L Normal <=37 [facility] Comment on above: Result Comment: Hemo lysis present, Results??could be affected.?? Performed By: #### L 500.4050, L100.0500 ####[facility] [address] [place], [address] Bilirubin [Mass/Vol] 0.78 mg/dL Normal 0.00-1.30 [facility] Comment on above: Performed By: #### L 500.4050, L100.0500 ####[facility] [address] [place], [address] BUN/CRE 15.2 RATIO Normal 10-20 [facility] Comment on above: Performed By: #### L 500.4050, L100.0500 ####[facility] [address] [place], [address] Calcium [Mass/Vol] 9.2 mg/dL Normal 7.6-11.0 [facility] Comment on above: Performed By: #### L 500.4050, L100.0500 ####[facility] [address] [place], [address] Chloride [Moles/Vol] 102 mmol/L Normal 98-108 [facility] Comment on above: Performed By: #### L 500.4050, L100.0500 ####[facility] [address] [place], [address] CO2 [Moles/Vol] 23.7 mmol/L Normal 21.0-32.0 [facility] Comment on above: Performed By: #### L 500.4050, L100.0500 ####[facility] [address] [place], [address] Creatinine [Mass/Vol] 1.93 mg/dL High 0.70-1.20 [facility] Comment on above: Performed By: #### L 500.4050, L100.0500 ####[facility] [address] [place], [address] ECRCL 37.66 ml/min Low 50-250 [facility] Comment on above: Performed By: #### L 500.4050, L100.0500 ####[facility] [address] [place], [address] GAP 13 Normal 5-15 [facility] Comment on above: Performed By: #### L 500.4050, L100.0500 ####[facility] [address] [place], [address] GFR/1.73 sq M.predicted among non-blacks MDRD (S/P/Bld) [Vol rate/Area] 35 mL/min/{1.73_m2} Low >60 [facility] Comment on above: Result Comment: mL/m in/1.73m2 CKD-EPI Creatinine Equation (2020) Performed By: #### L 500.4050, L100.0500 ####[facility] [address] [place], [address] Globulin (S) [Mass/Vol] 2.8 g/dL Normal 2.2-4.2 [facility] Comment on above: Performed By: #### L 500.4050, L100.0500 ####[facility] [address] [place], [address] Glucose [Mass/Vol] 130 mg/dL High 70-99 [facility] Comment on above: Performed By: #### L 500.4050, L100.0500 ####[facility] [address] [place], [address] Potassium [Moles/Vol] 4.4 mmol/L Normal 3.3-5.1 [facility] Comment on above: Result Comment: Hemo lysis present, Results??could be affected.?? Performed By: #### L 500.4050, L100.0500 ####[facility] [address] [place], [address] Sodium [Moles/Vol] 139 mmol/L Normal 133-145 [facility] Comment on above: Performed By: #### L 500.4050, L100.0500 ####[facility] [address] [place], [address] T PROT 6.6 g/dL Normal 5.9-8.4 [facility] Comment on above: Performed By: #### L 500.4050, L100.0500 ####[facility] [address] [place], [address] Urea nitrogen [Mass/Vol] 29 mg/dL High 4-19 [facility] Comment on above: Performed By: #### L 500.4050, L100.0500 ####[facility] [address] [place], [address] Erythrocyte distribution wid th ratioOrdered By: Jose Hay on 11-28-2024 Erythrocyte distribution width (RBC) [Ratio] 13.6 % 11.6-14.6 [facility] Erythrocyte distribution wid th standard deviationOrdered By: Jose Hay on 11-28-2024 Erythrocyte distribution width (RBC) [Ratio] 46.1 fl High 35.1-43.9 [facility] Glomerular filtration rate ( GFR) estimation/1.73 sq m using serum, plasma, or whole bOrdered By: Jose Hay on 11-28-2024 GFR/1.73 sq M.predicted among non-blacks MDRD (S/P/Bld) [Vol rate/Area] 35 mL/min/{1.73_m2} Low >60 [facility] Hematocrit Auto (Bld) [Volum e fraction]Ordered By: Jose Hay on 11-28-2024 Hematocrit (Bld) [Volume fraction] 35.3 % Low 40-54 [facility] Hemoglobin measurementOrdere d By: Jose Hay on 11-28-2024 Hemoglobin (Bld) [Mass/Vol] 11.3 g/dL Low 13.0-16.5 [facility] MCV (mean corpuscular volume ) determinationOrdered By: Jose Hay on 11-28-2024 MCV (RBC) [Entitic vol] 91.7 fL 80-94 [facility] Mean corpuscular hemoglobin (MCH) determinationOrdered By: Jose Hay on 11-28-2024 MCH (RBC) [Entitic mass] 29.4 pg 27.0-32.0 [facility] No Panel InformationOrdered By: Jose Hay on 11-28-2024 33 U/L <38 [facility] Platelet countOrdered By: Harsh Hay on 11-28-2024 Platelets (Bld) [#/Vol] 108 10*3/uL Low 150-450 [facility] Potassium measurement (mass/ volume)Ordered By: Jose Hay on 11-28-2024 Potassium (Unsp spec) [Mass/Vol] 4.4 mmol/L 3.3-5.1 [facility] RBC Auto (Bld) [#/Vol]Ordere d By: Jose Hay on 11-28-2024 RBC (Bld) [#/Vol] 3.85 10*6/uL Low 4.6-6.2 [facility] Serum creatinine measurement (mass/volume)Ordered By: Jose Hay on 11-28-2024 Creatinine [Mass/Vol] 1.93 mg/dL High 0.70-1.20 [facility] Serum globulin measurementOr dered By: Jose Hay on 11-28-2024 Globulin (S) [Mass/Vol] 2.8 g/dL 2.2-4.2 [facility] Serum glucose measurement (m ass/volume)Ordered By: Jose Hay on 11-28-2024 Glucose [Mass/Vol] 130 mg/dL High 70-99 [facility] Serum or plasma alanine guerrero otransferase (ALT) measurementOrdered By: Jose Hay on 11-28-2024 ALT [Catalytic activity/Vol] 27 U/L <47 [facility] Serum or plasma albumin francine urement (mass/volume)Ordered By: Jose Hay on 11-28-2024 Albumin [Mass/Vol] 3.8 g/dL 3.4-4.8 [facility] Serum or plasma albumin/glob ulin mass ratioOrdered By: Jose Hay on 11-28-2024 Albumin/Globulin [Mass ratio] 1.4 {ratio} 0.9-2.4 [facility] Serum or plasma alkaline bell sphatase measurementOrdered By: Jose Hay on 11-28-2024 ALP [Catalytic activity/Vol] 93 U/L 40-129 [facility] Serum or plasma calcium francine urement (mass/volume)Ordered By: Jose Hay on 11-28-2024 Calcium [Mass/Vol] 9.2 mg/dL 7.6-11.0 [facility] Serum or plasma urea nitroge n measurement (mass/volume)Ordered By: Jose Hay on 11-28-2024 Urea nitrogen [Mass/Vol] 29 mg/dL High 4-19 [facility] Sodium levelOrdered By: Ernst Hay on 11-28-2024 Sodium [Moles/Vol] 139 mmol/L 133-145 [facility] Total proteinOrdered By: Emmanuel Hay on 11-28-2024 Protein [Mass/Vol] 6.6 g/dL 5.9-8.4 [facility] White blood cell (WBC) count Ordered By: Jose Hay on 11-28-2024 WBC (Bld) [#/Vol] 7.1 10*3/uL 4.4-11.0 [facility] 12 Lead EKGon 11-27-2024 12 Lead EKG Normal [facility] Cardiac rehabilitation repor tOrdered By: Karrie Arceo on 11-27-2024 Study report [facility] Discharge Instructionon - Discharge Instruction Normal [facility] 12 Lead EKGon 11-26-2024 12 Lead EKG Normal [facility] Absolute lymphocyte countOrd ered By: Isael Bernabe on 11-26-2024 Lymphocytes Auto (Unsp spec) [#/Vol] 1.53 10*3/uL 0.83-4.51 [facility] Anion gap in Serum or Plasma Ordered By: Isael Bernabe on 11-26-2024 Anion gap [Moles/Vol] 15 mmol/L 5- [facility] Automated lymphocyte count a s percentage of total leukocytesOrdered By: Isael Bernabe on 11-26-2024 Lymphocytes/100 WBC Auto (Unsp spec) 16.7 % Low 19-41 [facility] BUN/creatinine ratioOrdered By: Isael Bernabe on 11-26-2024 Urea nitrogen/Creatinine [Mass ratio] 18.2 mg/mg 10- [facility] Basic Metabolic Profile (BMP )on 11-26-2024 BUN/CRE 18.2 RATIO Normal - [facility] Comment on above: Performed By: #### L 500.2500, L100.0100, L501.4021, L503.7505 ####[facility] [address] [place], [address] Calcium [Mass/Vol] 9.2 mg/dL Normal 7.6-11.0 [facility] Comment on above: Performed By: #### L 500.2500, L100.0100, L501.4021, L503.7505 ####[facility] [address] [place], [address] Chloride [Moles/Vol] 100 mmol/L Normal 98-108 [facility] Comment on above: Performed By: #### L 500.2500, L100.0100, L501.4021, L503.7505 ####[facility] [address] [place], [address] CO2 [Moles/Vol] 21.5 mmol/L Normal 21.0-32.0 [facility] Comment on above: Performed By: #### L 500.2500, L100.0100, L501.4021, L503.7505 ####[facility] [address] [place], [address] Creatinine [Mass/Vol] 2.34 mg/dL High 0.70-1.20 [facility] Comment on above: Performed By: #### L 500.2500, L100.0100, L501.4021, L503.7505 ####[facility] [address] [place], [address] ECRCL 31.97 ml/min Low 50-250 [facility] Comment on above: Performed By: #### L 500.2500, L100.0100, L501.4021, L503.7505 ####[facility] [address] [place], [address] GAP 15 Normal 5-15 [facility] Comment on above: Performed By: #### L 500.2500, L100.0100, L501.4021, L503.7505 ####[facility] [address] [place], [address] GFR/1.73 sq M.predicted among non-blacks MDRD (S/P/Bld) [Vol rate/Area] 28 mL/min/{1.73_m2} Low >60 [facility] Comment on above: Result Comment: mL/m in/1.73m2 CKD-EPI Creatinine Equation (2020) Performed By: #### L 500.2500, L100.0100, L501.4021, L503.7505 ####[facility] [address] [place], [address] Glucose [Mass/Vol] 275 mg/dL High 70-99 [facility] Comment on above: Performed By: #### L 500.2500, L100.0100, L501.4021, L503.7505 ####[facility] [address] [place], [address] Potassium [Moles/Vol] 4.4 mmol/L Normal 3.3-5.1 [facility] Comment on above: Performed By: #### L 500.2500, L100.0100, L501.4021, L503.7505 ####[facility] [address] [place], [address] Sodium [Moles/Vol] 137 mmol/L Normal 133-145 [facility] Comment on above: Performed By: #### L 500.2500, L100.0100, L501.4021, L503.7505 ####[facility] [address] [place], [address] Urea nitrogen [Mass/Vol] 43 mg/dL High 4-19 [facility] Comment on above: Performed By: #### L 500.2500, L100.0100, L501.4021, L503.7505 ####[facility] [address] [place], [address] Basophil percentageOrdered B y: Isael Bernabe on 11-26-2024 Basophils/100 WBC (Bld) 0.3 % 0-1 [facility] Brain/Head without Contrasto n 11-26-2024 Brain/Head without Contrast Normal [facility] CBC W/Diff, Automatedon 07- Absolute Lymph 1.53 X10 3/uL Normal 0.83-4.51 [facility] Comment on above: Performed By: #### L 500.2500, L100.0100, L501.4021, [id number] ####[facility] [address] [place], [address] Absolute Neut 6.6 X10 3/uL Normal 2.0-7.7 [facility] Comment on above: Performed By: #### L 500.2500, L100.0100, L501.4021, L503.7505 ####[facility] [address] [place], [address] Basophils/100 WBC (Bld) 0.3 % Normal 0-1 [facility] Comment on above: Performed By: #### L 500.2500, L100.0100, L501.4021, L503.7505 ####[facility] [address] [place], [address] Eosinophils/100 WBC (Bld) 1.3 % Normal 0-5 [facility] Comment on above: Performed By: #### L 500.2500, L100.0100, L501.4021, L503.7505 ####[facility] [address] [place], [address] Erythrocyte distribution width (RBC) [Ratio] 13.9 % Normal 11.6-14.6 [facility] Comment on above: Performed By: #### L 500.2500, L100.0100, L501.4021, L503.7505 ####[facility] [address] [place], [address] Hematocrit (Bld) [Volume fraction] 36.7 % Low 40-54 [facility] Comment on above: Performed By: #### L 500.2500, L100.0100, L501.4021, L503.7505 ####[facility] [address] [place], [address] Hemoglobin (Bld) [Mass/Vol] 11.8 g/dL Low 13.0-16.5 [facility] Comment on above: Performed By: #### L 500.2500, L100.0100, L501.4021, L503.7505 ####[facility] [address] [place], [address] IG% 0.400 Normal 0.0-0.9 [facility] Comment on above: Result Comment: IG% - Immature Granulocytes (promyelocytes, myelocytes andmetamyelocytes) > 1% indicates that a LEFT SHIFT is Present. Performed By: #### L 500.2500, L100.0100, L501.4021, L503.7505 ####[facility] [address] [place], [address] Lymphocytes/100 WBC (Bld) 16.7 % Low 19-41 [facility] Comment on above: Performed By: #### L 500.2500, L100.0100, L501.4021, L503.7505 ####[facility] [address] [place], [address] MCH (RBC) [Entitic mass] 29.2 pg Normal 27.0-32.0 [facility] Comment on above: Performed By: #### L 500.2500, L100.0100, L501.4021, L503.7505 ####[facility] [address] [place], [address] MCHC (RBC) [Mass/Vol] 32.2 g/dL Normal 32-36 [facility] Comment on above: Performed By: #### L 500.2500, L100.0100, L501.4021, L503.7505 ####[facility] [address] [place], [address] MCV (RBC) [Entitic vol] 90.8 fL Normal 80-94 [facility] Comment on above: Performed By: #### L 500.2500, L100.0100, L501.4021, L503.7505 ####[facility] [address] [place], [address] Monocytes/100 WBC (Bld) 9.5 % Normal 0-10 [facility] Comment on above: Performed By: #### L 500.2500, L100.0100, L501.4021, L503.7505 ####[facility] [address] [place], [address] Neutrophils/100 WBC (Bld) 71.8 % High 47-70 [facility] Comment on above: Performed By: #### L 500.2500, L100.0100, L501.4021, L503.7505 ####[facility] [address] [place], [address] Nucleated RBC (Bld) [#/Vol] 0 10*3/uL Normal 0-5 [facility] Comment on above: Performed By: #### L 500.2500, L100.0100, L501.4021, L503.7505 ####[facility] [address] [place], [address] Platelet mean volume (Bld) [Entitic vol] 12.8 fL High 6.2-12.0 [facility] Comment on above: Performed By: #### L 500.2500, L100.0100, L501.4021, L503.7505 ####[facility] [address] [place], [address] Platelets (Bld) [#/Vol] 132 10*3/uL Low 150-450 [facility] Comment on above: Performed By: #### L 500.2500, L100.0100, L501.4021, L503.7505 ####[facility] [address] [place], [address] RBC (Bld) [#/Vol] 4.04 10*6/uL Low 4.6-6.2 [facility] Comment on above: Performed By: #### L 500.2500, L100.0100, L501.4021, L503.7505 ####[facility] [address] [place], [address] RDW SD 46.6 fl High 35.1-43.9 [facility] Comment on above: Performed By: #### L 500.2500, L100.0100, L501.4021, L503.7505 ####[facility] [address] [place], [address] WBC (Bld) [#/Vol] 9.2 10*3/uL Normal 4.4-11.0 [facility] Comment on above: Performed By: #### L 500.2500, L100.0100, L501.4021, L503.7505 ####[facility] [address] [place], [place], [address] Carbon dioxide, total [Moles /volume] in Central venous bloodOrdered By: Isael Bernabe on 11-26-2024 CO2 [Moles/Vol] 21.5 mmol/L 21.0-32.0 [facility] Chest 1 View (Portable)on Chest 1 View (Portable) Normal [facility] Chloride assayOrdered By: Jaylen Bernabe on 11-26-2024 Chloride [Moles/Vol] 100 mmol/L 98-108 [facility] Emergency Department Summary on 11-26-2024 Emergency Department Summary Normal [facility] Eosinophil percentageOrdered By: Isael Bernabe on 11-26-2024 Eosinophils/100 WBC (Bld) 1.3 % 0-5 [facility] Erythrocyte distribution wid th ratioOrdered By: Isael Bernabe on 11-26-2024 Erythrocyte distribution width (RBC) [Ratio] 13.9 % 11.6-14.6 [facility] Erythrocyte distribution wid th standard deviationOrdered By: Isael Bernabe on 11-26-2024 Erythrocyte distribution width (RBC) [Ratio] 46.6 fl High 35.1-43.9 [facility] Glomerular filtration rate ( GFR) estimation/1.73 sq m using serum, plasma, or whole bOrdered By: Isael Bernabe on 11-26-2024 GFR/1.73 sq M.predicted among non-blacks MDRD (S/P/Bld) [Vol rate/Area] 28 mL/min/{1.73_m2} Low >60 [facility] Hand Min 3 Viewson 5 Hand Min 3 Views Normal [facility] Hematocrit Auto (Bld) [Volum e fraction]Ordered By: Isael Bernabe on 11-26-2024 Hematocrit (Bld) [Volume fraction] 36.7 % Low 40-54 [facility] Hemoglobin measurementOrdere d By: Isael Bernabe on 11-26-2024 Hemoglobin (Bld) [Mass/Vol] 11.8 g/dL Low 13.0-16.5 [facility] Immature granulocytes/100 WB C Auto (Bld)Ordered By: Isael Bernabe on 11-26-2024 Immature granulocytes/100 WBC (Bld) 0.400 % 0.0-0.9 [facility] Knee 4 or More Viewson 11-26 Knee 4 or More Views Normal [facility] Knee 4 or More Views Normal [facility] L501.4021on 11-26-2024 Trop T High Sen 18 ng/L Normal <=22 [facility] Comment on above: Performed By: #### L 500.2500, L100.0100, L501.4021, L503.7505 ####[facility] [address] [place], [address] MCV (mean corpuscular volume ) determinationOrdered By: Isael Bernabe on 11-26-2024 MCV (RBC) [Entitic vol] 90.8 fL 80-94 [facility] Mean corpuscular hemoglobin (MCH) determinationOrdered By: Isael Bernabe on 11-26-2024 MCH (RBC) [Entitic mass] 29.2 pg 27.0-32.0 [facility] Monocyte percentageOrdered B y: Isael Bernabe on 11-26-2024 Monocytes/100 WBC (Bld) 9.5 % 0-10 [facility] Natriuretic peptide.B prohor efrem N-Terminal [Mass/volume] in Serum or PlasmaOrdered By: Isael Bernabe on 11-26-2024 Natriuretic peptide.B prohormone N-Terminal [Mass/Vol] 162 pg/mL <1800 [facility] Neutrophil percentageOrdered By: Isael Bernabe on 11-26-2024 Neutrophils/100 WBC (Bld) 71.8 % High 47-70 [facility] Platelet countOrdered By: Jaylen eBrnabe on 11-26-2024 Platelets (Bld) [#/Vol] 132 10*3/uL Low 150-450 [facility] Potassium measurement (mass/ volume)Ordered By: Isael Bernabe on 11-26-2024 Potassium (Unsp spec) [Mass/Vol] 4.4 mmol/L 3.3-5.1 [facility] Pro- Brain NATRIURETIC PEPTI Sharon 11-26-2024 Natriuretic peptide B (Bld) [Mass/Vol] 162 pg/mL Normal <=1800 [facility] Comment on above: Result Comment: Hear t Failure Unlikely: < 300 pg/mLHeart Failure Likely< 50 Years: > 450 pg/mL50-75 Years: > 900 pg/mL>75 Years: > 1800 pg/mL Performed By: #### L 500.2500, L100.0100, L501.4021, L503.7505 ####[facility] [address] [place], [address] RBC Auto (Bld) [#/Vol]Ordere d By: Isael Bernabe on 11-26-2024 RBC (Bld) [#/Vol] 4.04 10*6/uL Low 4.6-6.2 [facility] Serum creatinine measurement (mass/volume)Ordered By: Isael Bernabe on 11-26-2024 Creatinine [Mass/Vol] 2.34 mg/dL High 0.70-1.20 [facility] Serum glucose measurement (m ass/volume)Ordered By: Isael Bernabe on 11-26-2024 Glucose [Mass/Vol] 275 mg/dL High 70-99 [facility] Serum or plasma calcium francine urement (mass/volume)Ordered By: Isael Bernabe on 11-26-2024 Calcium [Mass/Vol] 9.2 mg/dL 7.6-11.0 [facility] Serum or plasma urea nitroge n measurement (mass/volume)Ordered By: Isael Bernabe on 11-26-2024 Urea nitrogen [Mass/Vol] 43 mg/dL High 4-19 [facility] Sodium levelOrdered By: Isael Bernabe on 11-26-2024 Sodium [Moles/Vol] 137 mmol/L 133-145 [facility] Spine Cervical without Contr ason 11-26-2024 Spine Cervical without Contras Normal [facility] Troponin T HS 2 HRon 025 Trop T High Sen 20 ng/L Normal <=22 [facility] Comment on above: Performed By: #### L 499.0042 ####[facility] [address] [place], [place], [address] Troponin T HS 4 HRon 025 Trop T High Sen Normal <=22 [facility] Comment on above: Result Comment: Canc elled via OM: Order cancelled - Patient discharged Performed By: #### L 499.0043 ####[facility] [address] [place], [place], [address] Troponin T.cardiac [Mass/vol ume] in Serum or Plasma by High sensitivity methodOrdered By: Isael Bernabe on 11-26-2024 Troponin T.cardiac High sensitivity method [Mass/Vol] 20 ng/L <22 [facility] Troponin T.cardiac High sensitivity method [Mass/Vol] 18 ng/L <22 [facility] White blood cell (WBC) count Ordered By: Isael Bernabe on 11-26-2024 WBC (Bld) [#/Vol] 9.2 10*3/uL 4.4-11.0 [facility] Absolute lymphocyte countOrd ered By: Gustabo Pérez on 11-22-2024 Lymphocytes Auto (Unsp spec) [#/Vol] 1.37 10*3/uL 0.83-4.51 [facility] Anion gap in Serum or Plasma Ordered By: Gustabo Pérez on 11-22-2024 Anion gap [Moles/Vol] 15 mmol/L 5-15 [facility] Automated lymphocyte count a s percentage of total leukocytesOrdered By: Gustabo Pérez on 11-22-2024 Lymphocytes/100 WBC Auto (Unsp spec) 16.1 % Low 19-41 [facility] BUN/creatinine ratioOrdered By: Gustabo Pérez on 11-22-2024 Urea nitrogen/Creatinine [Mass ratio] 15.6 mg/mg - [facility] Basic Metabolic Profile (BMP )on 11-22-2024 BUN/CRE 15.6 RATIO Normal - [facility] Comment on above: Performed By: #### L 503.7505, L100.0100, L500.2500 ####[facility] [address] [place], [address] Calcium [Mass/Vol] 9.1 mg/dL Normal 7.6-11.0 [facility] Comment on above: Performed By: #### L 503.7505, L100.0100, L500.2500 ####[facility] [address] [place], [address] Chloride [Moles/Vol] 102 mmol/L Normal 98-108 [facility] Comment on above: Performed By: #### L 503.7505, L100.0100, L500.2500 ####[facility] [address] [place], [address] CO2 [Moles/Vol] 21.6 mmol/L Normal 21.0-32.0 [facility] Comment on above: Performed By: #### L 503.7505, L100.0100, L500.2500 ####[facility] [address] [place], [address] Creatinine [Mass/Vol] 2.51 mg/dL High 0.70-1.20 [facility] Comment on above: Performed By: #### L 503.7505, L100.0100, L500.2500 ####[facility] [address] [place], [address] GAP 15 Normal 5-15 [facility] Comment on above: Performed By: #### L 503.7505, L100.0100, L500.2500 ####[facility] [address] [place], [address] GFR/1.73 sq M.predicted among non-blacks MDRD (S/P/Bld) [Vol rate/Area] 25 mL/min/{1.73_m2} Low >60 [facility] Comment on above: Result Comment: mL/m in/1.73m2 CKD-EPI Creatinine Equation (2020) Performed By: #### L 503.7505, L100.0100, L500.2500 ####[facility] [address] [place], [address] Glucose [Mass/Vol] 262 mg/dL High 70-99 [facility] Comment on above: Performed By: #### L 503.7505, L100.0100, L500.2500 ####[facility] [address] [place], [address] Potassium [Moles/Vol] 4.8 mmol/L Normal 3.3-5.1 [facility] Comment on above: Performed By: #### L 503.7505, L100.0100, L500.2500 ####[facility] [address] [place], [address] Sodium [Moles/Vol] 139 mmol/L Normal 133-145 [facility] Comment on above: Performed By: #### L 503.7505, L100.0100, L500.2500 ####[facility] [address] [place], [address] Urea nitrogen [Mass/Vol] 39 mg/dL High 4-19 [facility] Comment on above: Performed By: #### L 503.7505, L100.0100, L500.2500 ####[facility] [address] [place], [address] Basophil percentageOrdered B y: Gustabo Pérez on 11-22-2024 Basophils/100 WBC (Bld) 0.4 % 0-1 [facility] CBC W/Diff, Automatedon 11-01 Absolute Lymph 1.37 X10 3/uL Normal 0.83-4.51 [facility] Comment on above: Performed By: #### L 503.7505, L100.0100, L500.2500 ####[facility] [address] [place], [address] Absolute Neut 6.2 X10 3/uL Normal 2.0-7.7 [facility] Comment on above: Performed By: #### L 503.7505, L100.0100, L500.2500 ####[facility] [address] [place], [address] Basophils/100 WBC (Bld) 0.4 % Normal 0-1 [facility] Comment on above: Performed By: #### L 503.7505, L100.0100, L500.2500 ####[facility] [address] [place], [address] Eosinophils/100 WBC (Bld) 1.5 % Normal 0-5 [facility] Comment on above: Performed By: #### L 503.7505, L100.0100, L500.2500 ####[facility] [address] [place], [address] Erythrocyte distribution width (RBC) [Ratio] 13.8 % Normal 11.6-14.6 [facility] Comment on above: Performed By: #### L 503.7505, L100.0100, L500.2500 ####[facility] [address] [place], [address] Hematocrit (Bld) [Volume fraction] 36.5 % Low 40-54 [facility] Comment on above: Performed By: #### L 503.7505, L100.0100, L500.2500 ####[facility] [address] [place], [address] Hemoglobin (Bld) [Mass/Vol] 11.8 g/dL Low 13.0-16.5 [facility] Comment on above: Performed By: #### L 503.7505, L100.0100, L500.2500 ####[facility] [address] [place], [address] IG% 0.500 Normal 0.0-0.9 [facility] Comment on above: Result Comment: IG% - Immature Granulocytes (promyelocytes, myelocytes andmetamyelocytes) > 1% indicates that a LEFT SHIFT is Present. Performed By: #### L 503.7505, L100.0100, L500.2500 ####[facility] [address] [place], [address] Lymphocytes/100 WBC (Bld) 16.1 % Low 19-41 [facility] Comment on above: Performed By: #### L 503.7505, L100.0100, L500.2500 ####[facility] [address] [place], [address] MCH (RBC) [Entitic mass] 29.6 pg Normal 27.0-32.0 [facility] Comment on above: Performed By: #### L 503.7505, L100.0100, L500.2500 ####[facility] [address] [place], [address] MCHC (RBC) [Mass/Vol] 32.3 g/dL Normal 32-36 [facility] Comment on above: Performed By: #### L 503.7505, L100.0100, L500.2500 ####[facility] [address] [place], [address] MCV (RBC) [Entitic vol] 91.7 fL Normal 80-94 [facility] Comment on above: Performed By: #### L 503.7505, L100.0100, L500.2500 ####[facility] [address] [place], [address] Monocytes/100 WBC (Bld) 9.0 % Normal 0-10 [facility] Comment on above: Performed By: #### L 503.7505, L100.0100, L500.2500 ####[facility] [address] [place], [address] Neutrophils/100 WBC (Bld) 72.5 % High 47-70 [facility] Comment on above: Performed By: #### L 503.7505, L100.0100, L500.2500 ####[facility] [address] [place], [address] Nucleated RBC (Bld) [#/Vol] 0 10*3/uL Normal 0-5 [facility] Comment on above: Performed By: #### L 503.7505, L100.0100, L500.2500 ####[facility] [address] [place], [address] Platelet mean volume (Bld) [Entitic vol] 13.0 fL High 6.2-12.0 [facility] Comment on above: Performed By: #### L 503.7505, L100.0100, L500.2500 ####[facility] [address] [place], [address] Platelets (Bld) [#/Vol] 148 10*3/uL Low 150-450 [facility] Comment on above: Performed By: #### L 503.7505, L100.0100, L500.2500 ####[facility] [address] [place], [address] RBC (Bld) [#/Vol] 3.98 10*6/uL Low 4.6-6.2 [facility] Comment on above: Performed By: #### L 503.7505, L100.0100, L500.2500 ####[facility] [address] [place], [address] RDW SD 47.0 fl High 35.1-43.9 [facility] Comment on above: Performed By: #### L 503.7505, L100.0100, L500.2500 ####[facility] [address] [place], [address] WBC (Bld) [#/Vol] 8.5 10*3/uL Normal 4.4-11.0 [facility] Comment on above: Performed By: #### L 503.7505, L100.0100, L500.2500 ####[facility] [address] [place], [address] Carbon dioxide, total [Moles /volume] in Central venous bloodOrdered By: Gustabo Pérez on 11-22-2024 CO2 [Moles/Vol] 21.6 mmol/L 21.0-32.0 [facility] Cardiology Visit Reporton Cardiology Visit Report Normal [facility] Chest PA and Lateralon 11-22 Chest PA and Lateral Normal [facility] Chloride assayOrdered By: Lydia Pérez on 11-22-2024 Chloride [Moles/Vol] 102 mmol/L 98-108 [facility] Eosinophil percentageOrdered By: Gustabo Pérez on 11-22-2024 Eosinophils/100 WBC (Bld) 1.5 % 0-5 [facility] Erythrocyte distribution wid th ratioOrdered By: Gustabo Pérez on 11-22-2024 Erythrocyte distribution width (RBC) [Ratio] 13.8 % 11.6-14.6 [facility] Erythrocyte distribution wid th standard deviationOrdered By: Gustabo Pérez on 11-22-2024 Erythrocyte distribution width (RBC) [Ratio] 47.0 fl High 35.1-43.9 [facility] Glomerular filtration rate ( GFR) estimation/1.73 sq m using serum, plasma, or whole bOrdered By: Gustabo Pérez on 11-22-2024 GFR/1.73 sq M.predicted among non-blacks MDRD (S/P/Bld) [Vol rate/Area] 25 mL/min/{1.73_m2} Low >60 [facility] Hematocrit Auto (Bld) [Volum e fraction]Ordered By: Gustabo Pérez on 11-22-2024 Hematocrit (Bld) [Volume fraction] 36.5 % Low 40-54 [facility] Hemoglobin measurementOrdere d By: Gustabo Pérez on 11-22-2024 Hemoglobin (Bld) [Mass/Vol] 11.8 g/dL Low 13.0-16.5 [facility] Immature granulocytes/100 WB C Auto (Bld)Ordered By: Gustabo Pérez on 11-22-2024 Immature granulocytes/100 WBC (Bld) 0.500 % 0.0-0.9 [facility] L503.7505on 11-22-2024 Natriuretic peptide B (Bld) [Mass/Vol] 188 pg/mL Normal <=1800 [facility] Comment on above: Result Comment: Hear t Failure Unlikely: < 300 pg/mLHeart Failure Likely< 50 Years: > 450 pg/mL50-75 Years: > 900 pg/mL>75 Years: > 1800 pg/mL Performed By: #### L 503.7505, L100.0100, L500.2500 ####[facility] [address] [place], [address] MCV (mean corpuscular volume ) determinationOrdered By: Gustabo Pérez on 11-22-2024 MCV (RBC) [Entitic vol] 91.7 fL 80-94 [facility] Mean corpuscular hemoglobin (MCH) determinationOrdered By: Gustabo Pérez on 11-22-2024 MCH (RBC) [Entitic mass] 29.6 pg 27.0-32.0 [facility] Monocyte percentageOrdered B y: Gustabo Pérez on 11-22-2024 Monocytes/100 WBC (Bld) 9.0 % 0-10 [facility] Natriuretic peptide.B prohor efrem N-Terminal [Mass/volume] in Serum or PlasmaOrdered By: Gustabo Pérez on 11-22-2024 Natriuretic peptide.B prohormone N-Terminal [Mass/Vol] 188 pg/mL <1800 [facility] Neutrophil percentageOrdered By: Gustabo Pérez on 11-22-2024 Neutrophils/100 WBC (Bld) 72.5 % High 47-70 [facility] Platelet countOrdered By: Lydia Pérez on 11-22-2024 Platelets (Bld) [#/Vol] 148 10*3/uL Low 150-450 [facility] Potassium measurement (mass/ volume)Ordered By: Gustabo Pérez on 11-22-2024 Potassium (Unsp spec) [Mass/Vol] 4.8 mmol/L 3.3-5.1 [facility] RBC Auto (Bld) [#/Vol]Ordere d By: Gustabo Pérez on 11-22-2024 RBC (Bld) [#/Vol] 3.98 10*6/uL Low 4.6-6.2 [facility] Serum creatinine measurement (mass/volume)Ordered By: Gustabo Pérez on 11-22-2024 Creatinine [Mass/Vol] 2.51 mg/dL High 0.70-1.20 [facility] Serum glucose measurement (m ass/volume)Ordered By: Gustabo Pérez on 11-22-2024 Glucose [Mass/Vol] 262 mg/dL High 70-99 [facility] Serum or plasma calcium francine urement (mass/volume)Ordered By: Gustabo Pérez on 11-22-2024 Calcium [Mass/Vol] 9.1 mg/dL 7.6-11.0 [facility] Serum or plasma urea nitroge n measurement (mass/volume)Ordered By: Gustabo Pérez on 11-22-2024 Urea nitrogen [Mass/Vol] 39 mg/dL High 4-19 [facility] Sodium levelOrdered By: Gustabo Pérez on 11-22-2024 Sodium [Moles/Vol] 139 mmol/L 133-145 [facility] White blood cell (WBC) count Ordered By: Gustabo Pérez on 11-22-2024 WBC (Bld) [#/Vol] 8.5 10*3/uL 4.4-11.0 [facility] Shoulder min 2 Viewson 11-20 Shoulder min 2 Views Normal [facility] Cardiovascular stress test r eportOrdered By: Jose Hya on 11-13-2024 Study report [facility] [address] [place] [address] MR#: [id number] Acct: [id number] Name: ERIBERTO RICO Rep #: [id number] : 1945 79 From: Jose Hay MD Primary Care: Dr. Marycarmen Rodriguez, Statu s: REG CLI Referring Dr: Gustabo Pérez NP 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-C Sex: M C Stress Test Report Date: [...] of 62%. This note was generated with [employer]ist[employer] software. It may contain incorrectwords, spelling, and punctuation that were not noted in checking the note beforesigning. 11/13/24 1539 Date _ Jose Hay MD CC: 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-C Gustabo Pérez; Dr. Marycarmen Rodriguez, DO ~ Date Dictated: 11/13/241536 Date Transcribed: 11/13/241536 Marketing Administrative Assistant: HARSH Signed [facility] Work Phone: Stress Reporton 11-13-2024 Stress Report Normal [facility] Echo Complete W/ Contraston 11-10-2024 Echo Complete W/ Contrast Normal [facility] Echocardiogram study reportO rdered By: Lance Rodriguez on 11-10-2024 Study report [facility] [address] [place] [address] Echo Complete W/ Contrast 11/10/24 0920 MR#: [id number] Acct: [id number] Name: ERIBERTO RICO Rep #:[id number] : 1945 79 From: Lance Hooker Attending Dr: YRN Herr Sta tus: REG CLI Ordering Dr: Maren Olivas Driss e: 11/10/24 Location: [facility] Sex: M C Admitted: [...] 1213 Date _ Lance Rodriguez MD CC: 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Agnieszka Pérez; Dr. Marycarmen Rodriguez DO; Maren Olivas NP ~ Date Dictated: 11/10/24919 Date Transcribed: 11/10/241212 Marketing Administrative Assistant: Signed [facility] Absolute lymphocyte countOrd ered By: Marycarmen Rodriguez on 11-09-2024 Lymphocytes Auto (Unsp spec) [#/Vol] 1.23 10*3/uL 0.83-4.51 [facility] Absolute neutrophil countOrd ered By: Marycarmen Rodriguez on 11-09-2024 Neutrophils (Bld) [#/Vol] 4.1 10*3/uL 2.0-7.7 [facility] Anion gap in Serum or Plasma Ordered By: Marycarmen Rodriguez on 11-09-2024 Anion gap [Moles/Vol] 14 mmol/L 5-15 [facility] Automated lymphocyte count a s percentage of total leukocytesOrdered By: Marycarmen Rodriguez on 11-09-2024 Lymphocytes/100 WBC Auto (Unsp spec) 19.9 % [facility] BUN/creatinine ratioOrdered By: Marycarmen Rodriguez on 11-09-2024 Urea nitrogen/Creatinine [Mass ratio] 19.7 mg/mg 02-19 [facility] Basic Metabolic Profile (BMP )on 11-09-2024 BUN/CRE 19.7 RATIO Normal 02-19 [facility] Comment on above: Performed By: #### L 503.4596, L500.2500, L100.0100 ####[facility] [address] [place], [address] Calcium [Mass/Vol] 9.3 mg/dL Normal 7.6-11.0 [facility] Comment on above: Performed By: #### L 503.7505, L500.2500, L100.0100 ####[facility] [address] [place], [address] Chloride [Moles/Vol] 102 mmol/L Normal 98-108 [facility] Comment on above: Performed By: #### L 503.7505, L500.2500, L100.0100 ####[facility] [address] [place], [address] CO2 [Moles/Vol] 22.5 mmol/L Normal 21.0-32.0 [facility] Comment on above: Performed By: #### L 503.7505, L500.2500, L100.0100 ####[facility] [address] [place], [address] Creatinine [Mass/Vol] 2.49 mg/dL High 0.70-1.20 [facility] Comment on above: Performed By: #### L 503.7505, L500.2500, L100.0100 ####[facility] [address] [place], [address] GAP 14 Normal 5-15 [facility] Comment on above: Performed By: #### L 503.7505, L500.2500, L100.0100 ####[facility] [address] [place], [address] GFR/1.73 sq M.predicted among non-blacks MDRD (S/P/Bld) [Vol rate/Area] 26 mL/min/{1.73_m2} Low >60 [facility] Comment on above: Result Comment: mL/m in/1.73m2 CKD-EPI Creatinine Equation (2020) Performed By: #### L 503.7505, L500.2500, L100.0100 ####[facility] [address] [place], [address] Glucose [Mass/Vol] 169 mg/dL High 70-99 [facility] Comment on above: Performed By: #### L 503.7505, L500.2500, L100.0100 ####[facility] [address] [place], [address] Potassium [Moles/Vol] 4.6 mmol/L Normal 3.3-5.1 [facility] Comment on above: Performed By: #### L 503.7505, L500.2500, L100.0100 ####[facility] [address] [place], [address] Sodium [Moles/Vol] 139 mmol/L Normal 133-145 [facility] Comment on above: Performed By: #### L 503.7505, L500.2500, L100.0100 ####[facility] [address] [place], [address] Urea nitrogen [Mass/Vol] 49 mg/dL High 4-19 [facility] Comment on above: Performed By: #### L 503.7505, L500.2500, L100.0100 ####[facility] [address] [place], [address] Basophil percentageOrdered B y: Marycarmen Rodriguez on 11-09-2024 Basophils/100 WBC (Bld) 0.3 % 0- [facility] CBC W/Diff, Automatedon 10-31-2024 Absolute Lymph 1.23 X10 3/uL Normal 0.83-4.51 [facility] Comment on above: Performed By: #### L 503.7505, L500.2500, L100.0100 ####[facility] [address] [place], [address] Absolute Neut 4.1 X10 3/uL Normal 2.0-7.7 [facility] Comment on above: Performed By: #### L 503.7505, L500.2500, L100.0100 ####[facility] [address] [place], [address] Basophils/100 WBC (Bld) 0.3 % Normal 0-1 [facility] Comment on above: Performed By: #### L 503.7505, L500.2500, L100.0100 ####[facility] [address] [place], [address] Eosinophils/100 WBC (Bld) 2.4 % Normal 0-5 [facility] Comment on above: Performed By: #### L 503.7505, L500.2500, L100.0100 ####[facility] [address] [place], [address] Erythrocyte distribution width (RBC) [Ratio] 14.1 % Normal 11.6-14.6 [facility] Comment on above: Performed By: #### L 503.7505, L500.2500, L100.0100 ####[facility] [address] [place], [address] Hematocrit (Bld) [Volume fraction] 38.2 % Low 40-54 [facility] Comment on above: Performed By: #### L 503.7505, L500.2500, L100.0100 ####[facility] [address] [place], [address] Hemoglobin (Bld) [Mass/Vol] 12.2 g/dL Low 13.0-16.5 [facility] Comment on above: Performed By: #### L 503.7505, L500.2500, L100.0100 ####[facility] [address] [place], [address] IG% 0.500 Normal 0.0-0.9 [facility] Comment on above: Result Comment: IG% - Immature Granulocytes (promyelocytes, myelocytes andmetamyelocytes) > 1% indicates that a LEFT SHIFT is Present. Performed By: #### L 503.7505, L500.2500, L100.0100 ####[facility] [address] [place], [address] Lymphocytes/100 WBC (Bld) 19.9 % Normal 19-41 [facility] Comment on above: Performed By: #### L 503.7505, L500.2500, L100.0100 ####[facility] [address] [place], [address] MCH (RBC) [Entitic mass] 29.6 pg Normal 27.0-32.0 [facility] Comment on above: Performed By: #### L 503.7505, L500.2500, L100.0100 ####[facility] [address] [place], [address] MCHC (RBC) [Mass/Vol] 31.9 g/dL Low 32-36 [facility] Comment on above: Performed By: #### L 503.7505, L500.2500, L100.0100 ####[facility] [address] [place], [address] MCV (RBC) [Entitic vol] 92.7 fL Normal 80-94 [facility] Comment on above: Performed By: #### L 503.7505, L500.2500, L100.0100 ####[facility] [address] [place], [address] Monocytes/100 WBC (Bld) 10.4 % High 0-10 [facility] Comment on above: Performed By: #### L 503.7505, L500.2500, L100.0100 ####[facility] [address] [place], [address] Neutrophils/100 WBC (Bld) 66.5 % Normal 47-70 [facility] Comment on above: Performed By: #### L 503.7505, L500.2500, L100.0100 ####[facility] [address] [place], [address] Nucleated RBC (Bld) [#/Vol] 0 10*3/uL Normal 0-5 [facility] Comment on above: Performed By: #### L 503.7505, L500.2500, L100.0100 ####[facility] [address] [place], [address] Platelet mean volume (Bld) [Entitic vol] 12.7 fL High 6.2-12.0 [facility] Comment on above: Performed By: #### L 503.7505, L500.2500, L100.0100 ####[facility] [address] [place], [address] Platelets (Bld) [#/Vol] 120 10*3/uL Low 150-450 [facility] Comment on above: Performed By: #### L 503.7505, L500.2500, L100.0100 ####[facility] [address] [place], [address] RBC (Bld) [#/Vol] 4.12 10*6/uL Low 4.6-6.2 [facility] Comment on above: Performed By: #### L 503.7505, L500.2500, L100.0100 ####[facility] [address] [place], [address] RDW SD 47.8 fl High 35.1-43.9 [facility] Comment on above: Performed By: #### L 503.7505, L500.2500, L100.0100 ####[facility] [address] [place], [address] WBC (Bld) [#/Vol] 6.2 10*3/uL Normal 4.4-11.0 [facility] Comment on above: Performed By: #### L 503.7505, L500.2500, L100.0100 ####[facility] [address] [place], [address] Carbon dioxide, total [Moles /volume] in Central venous bloodOrdered By: Marycarmen Rodriguez on 11-09-2024 CO2 [Moles/Vol] 22.5 mmol/L 21.0-32.0 [facility] Chloride assayOrdered By: Ap Rodriguez on 11-09-2024 Chloride [Moles/Vol] 102 mmol/L 98-108 [facility] Eosinophil percentageOrdered By: Marycarmen Rodriguez on 11-09-2024 Eosinophils/100 WBC (Bld) 2.4 % 0-5 [facility] Erythrocyte distribution wid th ratioOrdered By: Marycarmen Rodriguez on 11-09-2024 Erythrocyte distribution width (RBC) [Ratio] 14.1 % 11.6-14.6 [facility] Erythrocyte distribution wid th standard deviationOrdered By: Marycarmen Rodriguez on 11-09-2024 Erythrocyte distribution width (RBC) [Ratio] 47.8 fl High 35.1-43.9 [facility] Glomerular filtration rate ( GFR) estimation/1.73 sq m using serum, plasma, or whole bOrdered By: Marycarmen Rodriguez on 11-09-2024 GFR/1.73 sq M.predicted among non-blacks MDRD (S/P/Bld) [Vol rate/Area] 26 mL/min/{1.73_m2} Low >60 [facility] Comment on above: mL/min/1.73m2 CKD-EP I Creatinine Equation (2020) Hematocrit Auto (Bld) [Volum e fraction]Ordered By: Marycarmen Rodriguez on 11-09-2024 Hematocrit (Bld) [Volume fraction] 38.2 % Low 40-54 [facility] Hemoglobin measurementOrdere d By: Marycarmen Rodriguez on 11-09-2024 Hemoglobin (Bld) [Mass/Vol] 12.2 g/dL Low 13.0-16.5 [facility] Immature granulocytes/100 WB C Auto (Bld)Ordered By: Marycarmen Rodriguez on 11-09-2024 Immature granulocytes/100 WBC (Bld) 0.500 % 0.0-0.9 [facility] Comment on above: IG% - Immature Granu locytes (promyelocytes, myelocytes and metamyelocytes) > 1% indicates that a LEFT SHIFT is Present. L503.7505on 11-09-2024 Natriuretic peptide B (Bld) [Mass/Vol] 91 pg/mL Normal <=1800 [facility] Comment on above: Result Comment: Hear t Failure Unlikely: < 300 pg/mLHeart Failure Likely< 50 Years: > 450 pg/mL50-75 Years: > 900 pg/mL>75 Years: > 1800 pg/mL Performed By: #### L 503.7505, L500.2500, L100.0100 ####[facility] [address] [place], [address] MCV (mean corpuscular volume ) determinationOrdered By: Marycarmen Rodriguez on 11-09-2024 MCV (RBC) [Entitic vol] 92.7 fL 80-94 [facility] Mean corpuscular hemoglobin (MCH) determinationOrdered By: Marycarmen Rodriguez on 11-09-2024 MCH (RBC) [Entitic mass] 29.6 pg 27.0-32.0 [facility] Mean corpuscular hemoglobin concentration (MCHC) determinationOrdered By: Marycarmen Rodriguez on 11-09-2024 MCHC (RBC) [Mass/Vol] 31.9 g/dL Low 32-36 [facility] Mean platelet volume determi nationOrdered By: Marycarmen Rodriguez on 11-09-2024 Platelet mean volume (Bld) [Entitic vol] 12.7 fL High 6.2-12.0 [facility] Monocyte percentageOrdered B y: Marycarmen Rodriguez on 11-09-2024 Monocytes/100 WBC (Bld) 10.4 % High 0-10 [facility] Natriuretic peptide.B prohor efrem N-Terminal [Mass/volume] in Serum or PlasmaOrdered By: Marycarmen Rodriguez on 11-09-2024 Natriuretic peptide.B prohormone N-Terminal [Mass/Vol] 91 pg/mL <1800 [facility] Comment on above: Heart Failure Unlike ly: < 300 pg/mLHeart Failure Likely< 50 Years: > 450 pg/mL50-75 Years: > 900 pg/mL>75 Years: > 1800 pg/mL Neutrophil percentageOrdered By: Marycarmen Rodriguez on 11-09-2024 Neutrophils/100 WBC (Bld) 66.5 % 47-70 [facility] Nucleated red blood cell per centageOrdered By: Marycarmen Rodriguez on 11-09-2024 Nucleated RBC/100 WBC (Bld) [Ratio] 0 % 0-5 [facility] Platelet countOrdered By: Ap Rodriguez on 11-09-2024 Platelets (Bld) [#/Vol] 120 10*3/uL Low 150-450 [facility] Potassium measurement (mass/ volume)Ordered By: Marycarmen Rodriguez on 11-09-2024 Potassium (Unsp spec) [Mass/Vol] 4.6 mmol/L 3.3-5.1 [facility] RBC Auto (Bld) [#/Vol]Ordere d By: Marycarmen Rodriguez on 11-09-2024 RBC (Bld) [#/Vol] 4.12 10*6/uL Low 4.6-6.2 [facility] Serum creatinine measurement (mass/volume)Ordered By: Marycarmen Rodriguez on 11-09-2024 Creatinine [Mass/Vol] 2.49 mg/dL High 0.70-1.20 [facility] Serum glucose measurement (m ass/volume)Ordered By: Marycarmen Rodriguez on 11-09-2024 Glucose [Mass/Vol] 169 mg/dL High 70-99 [facility] Serum or plasma calcium francine urement (mass/volume)Ordered By: Marycarmen Rodriguez on 11-09-2024 Calcium [Mass/Vol] 9.3 mg/dL 7.6-11.0 [facility] Serum or plasma urea nitroge n measurement (mass/volume)Ordered By: Marycarmen Rodriguez on 11-09-2024 Urea nitrogen [Mass/Vol] 49 mg/dL High 4-19 [facility] Sodium levelOrdered By: Marycarmen Rodriguez on 11-09-2024 Sodium [Moles/Vol] 139 mmol/L 133-145 [facility] White blood cell (WBC) count Ordered By: Marycarmen Rodriguez on 11-09-2024 WBC (Bld) [#/Vol] 6.2 10*3/uL 4.4-11.0 [facility] Visit Report Normal Wo lucien [facility] Cardiology Visit Reporton Cardiology Visit Report Normal [facility] L3410.9992on 10-23-2024 [facility] Misc. COMMENT Normal . [facility] Comment on above: Order Comment: [id number] 0MED TOX Result Comment: Test Ordered: [id number] S37-Gcueau+GJ9Falpgtbiqgyq Screen, Urine Negative ng/mL UI Reference Range: Tzdfhz=578Evdztluhcne test includes Amphetamine and Methamphetamine.Barbiturates Negative ng/mL UI Reference Range: Rvpvhy=934Bxwaseyoctoflql Negative ng/mL UI Reference Range: Tmiaao=692Tncwsgc (Metab.), Urine Negative ng/mL UI Reference Range: Fuonhb=751Rqpltiy Note: ng/mL UI See Final Results Reference Range: Mjgzad=258Rmgmxm test includes Codeine, Morphine, Hydromorphone, Hydrocodone.Opiates Positive [A ] UI Reference Range: Vmnyiq=432Ohvtmw test includes Codeine, Morphine, Hydromorphone, Hydrocodone.Codeine Negative UI Reference Range: Gqcznq=929Rmwcgmkt Negative UI Reference Range: Pqbtly=412Meejpspqhoaqw Negative UI Reference Range: Pyjlml=775Nybdvtoeogu Positive [A ] UI Reference Range: .Hydrocodone Conf, MS, UR 349 ng/mL UI Reference Range: Onchge=2280-Lyeetzfkiknove, Urine Negative ng/mL UI Reference Range: Cutoff=10Oxycodone/Oxymorphone, Urine Negative ng/mL UI Reference Range: Bkxaqb=777Ogbb includes Oxycodone and OxymorphonePCP, Urine Negative ng/mL UI Reference Range: Cutoff=25Methadone Screen, Urine Negative ng/mL UI Reference Range: Fwuydn=767Gmqlxgeiiimv, Urine Negative ng/mL UI Reference Range: Zcmnqi=047Hmetrzsz, Urine Negative ng/mL UI Reference Range: Cutoff=2.0Test includes Fentanyl and NorfentanylThis test was developed and its performance characteristicsdetermined by [facility]. It has not been cleared orapproved by the Food and Drug Administration.Tramadol Negative ng/mL UI Reference Range: Svdxry=744Wtptileblnceo, Urine Negative ng/mL UI Reference Range: Cutoff=10Creatinine, Urine 36.9 mg/dL UI Reference Range: 20.0-300.0pH, Urine 6.1 UI Reference Range: 4.5-8.9Performed at: UI - [facility] [id number] [facility], [place], [place] [id number] Director: Erik Wallis PhD, Phone: [phone] at: - [facility] [address] [id number] Director: Bharath Hawthorne PhD, Phone: [phone] Performed By: #### L 9860.4832, L505.5000 ####[facility] [address] [place] [place], [place], [address] Absolute lymphocyte countOrd ered By: Gustabo Pérez on 10-18-2024 Lymphocytes Auto (Unsp spec) [#/Vol] 1.15 10*3/uL 0.83-4.51 [facility] Absolute neutrophil countOrd ered By: Gustabo Pérez on 10-18-2024 Neutrophils (Bld) [#/Vol] 4.6 10*3/uL 2.0-7.7 [facility] Amphetamine detection with 1 000 ng/mL as cutoffOrdered By: Brooks Carpenter on 10-18-2024 Amphetamines Screen method >1000 ng/mL Ql (U) Negative < 200 ng/mL [facility] Anion gap in Serum or Plasma Ordered By: Gustabo Pérez on 10-18-2024 Anion gap [Moles/Vol] 12 mmol/L 09-14 [facility] Automated lymphocyte count a s percentage of total leukocytesOrdered By: Gustabo Pérez on 10-18-2024 Lymphocytes/100 WBC Auto (Unsp spec) 17.4 % Low [facility] BUN/creatinine ratioOrdered By: Gustabo Pérez on 10-18-2024 Urea nitrogen/Creatinine [Mass ratio] 16.4 mg/mg 02-19 [facility] Basic Metabolic Profile (BMP )on 10-18-2024 BUN/CRE 16.4 RATIO Normal 02-19 [facility] Comment on above: Performed By: #### L 500.2500, L100.0100, L503.7505 ####[facility] [address] [place], [address] Calcium [Mass/Vol] 9.0 mg/dL Normal 7.6-11.0 [facility] Comment on above: Performed By: #### L 500.2500, L100.0100, L503.7505 ####[facility] [address] [place], [address] Chloride [Moles/Vol] 103 mmol/L Normal 98-108 [facility] Comment on above: Performed By: #### L 500.2500, L100.0100, L503.7505 ####[facility] [address] [place], [address] CO2 [Moles/Vol] 23.9 mmol/L Normal 21.0-32.0 [facility] Comment on above: Performed By: #### L 500.2500, L100.0100, L503.7505 ####[facility] [address] [place], [address] Creatinine [Mass/Vol] 2.00 mg/dL High 0.70-1.20 [facility] Comment on above: Performed By: #### L 500.2500, L100.0100, L503.7505 ####[facility] [address] [place], [address] GAP 12 Normal 5-15 [facility] Comment on above: Performed By: #### L 500.2500, L100.0100, L503.7505 ####[facility] [address] [place], [address] GFR/1.73 sq M.predicted among non-blacks MDRD (S/P/Bld) [Vol rate/Area] 33 mL/min/{1.73_m2} Low >60 [facility] Comment on above: Result Comment: mL/m in/1.73m2 CKD-EPI Creatinine Equation (2020) Performed By: #### L 500.2500, L100.0100, L503.7505 ####[facility] [address] [place], [address] Glucose [Mass/Vol] 125 mg/dL High 70-99 [facility] Comment on above: Performed By: #### L 500.2500, L100.0100, L503.7505 ####[facility] [address] [place], [address] Potassium [Moles/Vol] 4.8 mmol/L Normal 3.3-5.1 [facility] Comment on above: Performed By: #### L 500.2500, L100.0100, L503.7505 ####[facility] [address] [place], [address] Sodium [Moles/Vol] 139 mmol/L Normal 133-145 [facility] Comment on above: Performed By: #### L 500.2500, L100.0100, L503.7505 ####[facility] [address] [place], [address] Urea nitrogen [Mass/Vol] 33 mg/dL High 4-19 [facility] Comment on above: Performed By: #### L 500.2500, L100.0100, L503.7505 ####[facility] [address] [place], [address] Basophil percentageOrdered B y: Gustabo Pérez on 10-18-2024 Basophils/100 WBC (Bld) 0.2 % 0-1 [facility] CBC W/Diff, Automatedon 10-01 Absolute Lymph 1.15 X10 3/uL Normal 0.83-4.51 [facility] Comment on above: Performed By: #### L 500.2500, L100.0100, L503.7505 ####[facility] [address] [place], [address] Absolute Neut 4.6 X10 3/uL Normal 2.0-7.7 [facility] Comment on above: Performed By: #### L 500.2500, L100.0100, L503.7505 ####[facility] [address] [place], [address] Basophils/100 WBC (Bld) 0.2 % Normal 0-1 [facility] Comment on above: Performed By: #### L 500.2500, L100.0100, L503.7505 ####[facility] [address] [place], [address] Eosinophils/100 WBC (Bld) 2.0 % Normal 0-5 [facility] Comment on above: Performed By: #### L 500.2500, L100.0100, L503.7505 ####[facility] [address] [place], [address] Erythrocyte distribution width (RBC) [Ratio] 14.3 % Normal 11.6-14.6 [facility] Comment on above: Performed By: #### L 500.2500, L100.0100, L503.7505 ####[facility] [address] [place], [address] Hematocrit (Bld) [Volume fraction] 36.4 % Low 40-54 [facility] Comment on above: Performed By: #### L 500.2500, L100.0100, L503.7505 ####[facility] [address] [place], [address] Hemoglobin (Bld) [Mass/Vol] 11.5 g/dL Low 13.0-16.5 [facility] Comment on above: Performed By: #### L 500.2500, L100.0100, L503.7505 ####[facility] [address] [place], [address] IG% 0.600 Normal 0.0-0.9 [facility] Comment on above: Result Comment: IG% - Immature Granulocytes (promyelocytes, myelocytes andmetamyelocytes) > 1% indicates that a LEFT SHIFT is Present. Performed By: #### L 500.2500, L100.0100, L503.7505 ####[facility] [address] [place], [address] Lymphocytes/100 WBC (Bld) 17.4 % Low 19-41 [facility] Comment on above: Performed By: #### L 500.2500, L100.0100, L503.7505 ####[facility] [address] [place], [address] MCH (RBC) [Entitic mass] 29.4 pg Normal 27.0-32.0 [facility] Comment on above: Performed By: #### L 500.2500, L100.0100, L503.7505 ####[facility] [address] [place], [address] MCHC (RBC) [Mass/Vol] 31.6 g/dL Low 32-36 [facility] Comment on above: Performed By: #### L 500.2500, L100.0100, L503.7505 ####[facility] [address] [place], [address] MCV (RBC) [Entitic vol] 93.1 fL Normal 80-94 [facility] Comment on above: Performed By: #### L 500.2500, L100.0100, L503.7505 ####[facility] [address] [place], [address] Monocytes/100 WBC (Bld) 10.4 % High 0-10 [facility] Comment on above: Performed By: #### L 500.2500, L100.0100, L503.7505 ####[facility] [address] [place], [address] Neutrophils/100 WBC (Bld) 69.4 % Normal 47-70 [facility] Comment on above: Performed By: #### L 500.2500, L100.0100, L503.7505 ####[facility] [address] [place], [address] Nucleated RBC (Bld) [#/Vol] 0 10*3/uL Normal 0-5 [facility] Comment on above: Performed By: #### L 500.2500, L100.0100, L503.7505 ####[facility] [address] [place], [address] Platelet mean volume (Bld) [Entitic vol] 12.9 fL High 6.2-12.0 [facility] Comment on above: Performed By: #### L 500.2500, L100.0100, L503.7505 ####[facility] [address] [place], [address] Platelets (Bld) [#/Vol] 152 10*3/uL Normal 150-450 [facility] Comment on above: Performed By: #### L 500.2500, L100.0100, L503.7505 ####[facility] [address] [place], [address] RBC (Bld) [#/Vol] 3.91 10*6/uL Low 4.6-6.2 [facility] Comment on above: Performed By: #### L 500.2500, L100.0100, L503.7505 ####[facility] [address] [place], [address] RDW SD 48.5 fl High 35.1-43.9 [facility] Comment on above: Performed By: #### L 500.2500, L100.0100, L503.7505 ####[facility] [address] [place], [address] WBC (Bld) [#/Vol] 6.6 10*3/uL Normal 4.4-11.0 [facility] Comment on above: Performed By: #### L 500.2500, L100.0100, L503.7505 ####[facility] [address] [place], [address] Carbon dioxide, total [Moles /volume] in Central venous bloodOrdered By: Gustabo Pérez on 10-18-2024 CO2 [Moles/Vol] 23.9 mmol/L 21.0-32.0 [facility] Chloride assayOrdered By: Lydia Pérez on 10-18-2024 Chloride [Moles/Vol] 103 mmol/L 98-108 [facility] Eosinophil percentageOrdered By: Gustabo Pérez on 10-18-2024 Eosinophils/100 WBC (Bld) 2.0 % 0-5 [facility] Erythrocyte distribution wid th ratioOrdered By: Gustabo Pérez on 10-18-2024 Erythrocyte distribution width (RBC) [Ratio] 14.3 % 11.6-14.6 [facility] Erythrocyte distribution wid th standard deviationOrdered By: Gustabo Pérez on 10-18-2024 Erythrocyte distribution width (RBC) [Ratio] 48.5 fl High 35.1-43.9 [facility] Glomerular filtration rate ( GFR) estimation/1.73 sq m using serum, plasma, or whole bOrdered By: Gustabo Pérez on 10-18-2024 GFR/1.73 sq M.predicted among non-blacks MDRD (S/P/Bld) [Vol rate/Area] 33 mL/min/{1.73_m2} Low >60 [facility] Comment on above: mL/min/1.73m2 CKD-EP I Creatinine Equation (2020) Hematocrit Auto (Bld) [Volum e fraction]Ordered By: Gustabo Pérez on 10-18-2024 Hematocrit (Bld) [Volume fraction] 36.4 % Low 40-54 [facility] Hemoglobin measurementOrdere d By: Gustabo Pérez on 10-18-2024 Hemoglobin (Bld) [Mass/Vol] 11.5 g/dL Low 13.0-16.5 [facility] Immature granulocytes/100 WB C Auto (Bld)Ordered By: Gustabo Pérez on 10-18-2024 Immature granulocytes/100 WBC (Bld) 0.600 % 0.0-0.9 [facility] Comment on above: IG% - Immature Granu locytes (promyelocytes, myelocytes and metamyelocytes) > 1% indicates that a LEFT SHIFT is Present. L503.7505on 10-18-2024 Natriuretic peptide B (Bld) [Mass/Vol] 200 pg/mL Normal <=1800 [facility] Comment on above: Result Comment: Hear t Failure Unlikely: < 300 pg/mLHeart Failure Likely< 50 Years: > 450 pg/mL50-75 Years: > 900 pg/mL>75 Years: > 1800 pg/mL Performed By: #### L 500.2500, L100.0100, L503.7505 ####[facility] [address] [place], [address] MCV (mean corpuscular volume ) determinationOrdered By: Gustabo Pérez on 10-18-2024 MCV (RBC) [Entitic vol] 93.1 fL 80-94 [facility] Mean corpuscular hemoglobin (MCH) determinationOrdered By: Gustabo Pérez on 10-18-2024 MCH (RBC) [Entitic mass] 29.4 pg 27.0-32.0 [facility] Mean corpuscular hemoglobin concentration (MCHC) determinationOrdered By: Gustabo Pérez on 10-18-2024 MCHC (RBC) [Mass/Vol] 31.6 g/dL Low 32-36 [facility] Mean platelet volume determi nationOrdered By: Gustabo Pérez on 10-18-2024 Platelet mean volume (Bld) [Entitic vol] 12.9 fL High 6.2-12.0 [facility] Monocyte percentageOrdered B y: Gustabo Pérez on 10-18-2024 Monocytes/100 WBC (Bld) 10.4 % High 0-10 [facility] Natriuretic peptide.B prohor efrem N-Terminal [Mass/volume] in Serum or PlasmaOrdered By: Gustabo Pérez on 10-18-2024 Natriuretic peptide.B prohormone N-Terminal [Mass/Vol] 200 pg/mL <1800 [facility] Comment on above: Heart Failure Unlike ly: < 300 pg/mLHeart Failure Likely< 50 Years: > 450 pg/mL50-75 Years: > 900 pg/mL>75 Years: > 1800 pg/mL Neutrophil percentageOrdered By: Gustabo Pérez on 10-18-2024 Neutrophils/100 WBC (Bld) 69.4 % 47-70 [facility] No Panel InformationOrdered By: Brooks Carpenter on 10-18-2024 Urine Buprenorphine Qualitative Negative < 200 ng/mL [facility] Urine Oxycodone Screen Negative < 100 ng/mL [facility] Negative < 200 ng/mL [facility] Nucleated red blood cell per centageOrdered By: Gustabo Pérez on 10-18-2024 Nucleated RBC/100 WBC (Bld) [Ratio] 0 % 0-5 [facility] Platelet countOrdered By: Lydia Pérez on 10-18-2024 Platelets (Bld) [#/Vol] 152 10*3/uL 150-450 [facility] Potassium measurement (mass/ volume)Ordered By: Gustabo Pérez on 10-18-2024 Potassium (Unsp spec) [Mass/Vol] 4.8 mmol/L 3.3-5.1 [facility] Quantitative urine opiates m easurementOrdered By: Brooks Carpenter on 10-18-2024 Opiates Ql (U) Positive < 300 ng/mL [facility] Comment on above: If confirmation test ing is needed, a separate order will be required to send out testing to the reference laboratory. RBC Auto (Bld) [#/Vol]Ordere d By: Gustabo Pérez on 10-18-2024 RBC (Bld) [#/Vol] 3.91 10*6/uL Low 4.6-6.2 [facility] Screening urine fentanyl ritu surementOrdered By: Brooks Carpenter on 10-18-2024 fentaNYL Screen Ql (U) Negative [facility] Serum creatinine measurement (mass/volume)Ordered By: Gustabo Pérez on 10-18-2024 Creatinine [Mass/Vol] 2.00 mg/dL High 0.70-1.20 [facility] Serum glucose measurement (m ass/volume)Ordered By: Gustabo Pérez on 10-18-2024 Glucose [Mass/Vol] 125 mg/dL High 70-99 [facility] Serum or plasma calcium francine urement (mass/volume)Ordered By: Gustabo Pérez on 10-18-2024 Calcium [Mass/Vol] 9.0 mg/dL 7.6-11.0 [facility] Serum or plasma urea nitroge n measurement (mass/volume)Ordered By: Gustabo Pérez on 10-18-2024 Urea nitrogen [Mass/Vol] 33 mg/dL High 4-19 [facility] Sodium levelOrdered By: Gustabo Pérez on 10-18-2024 Sodium [Moles/Vol] 139 mmol/L 133-145 [facility] Urine Drug Screen (VISTA)on 10-18-2024 AMPHETAMINES Negative Normal <1000 ng/mL [facility] Comment on above: Order Comment: PAIN MANAGMENT Performed By: #### L 3410.9992, L505.5000 ####[facility] [address] [place], [address] BARBITIURATES Negative Normal < 200 ng/mL [facility] Comment on above: Order Comment: PAIN MANAGMENT Performed By: #### L 3410.9992, L505.5000 ####[facility] [address] [place], [address] BENZODIAZIPINE Negative Normal < 200 ng/mL [facility] Comment on above: Order Comment: PAIN MANAGMENT Performed By: #### L 3410.9992, L505.5000 ####[facility] [address] [place], [address] BUP Ur Drug Scr Negative Normal < 200 ng/mL [facility] Comment on above: Order Comment: PAIN MANAGMENT Performed By: #### L 3410.9992, L505.5000 ####[facility] [address] [place], [address] COCAINE Negative Normal < 300 ng/mL [facility] Comment on above: Order Comment: PAIN MANAGMENT Performed By: #### L 3410.9992, L505.5000 ####[facility] [address] [place], [address] Fentanyl Negative Normal [facility] Comment on above: Order Comment: PAIN MANAGMENT Performed By: #### L 3410.9992, L505.5000 ####[facility] [address] [facility] [address] METHADONE Negative Normal < 300 ng/mL [facility] Comment on above: Order Comment: PAIN MANAGMENT Performed By: #### L 3410.9992, L505.5000 ####[facility] [address] [place], [address] OPIATES Positive Normal < 300 ng/mL [facility] Comment on above: Order Comment: PAIN MANAGMENT Result Comment: If c onfirmation testing is needed, a separate order will berequired to send out testing to the reference laboratory. Performed By: #### L 3410.9992, L505.5000 ####[facility] [address] [facility] [address] OXYCODONE Negative Normal < 100 ng/mL [facility] Comment on above: Order Comment: PAIN MANAGMENT Performed By: #### L 3410.9992, L505.5000 ####[facility] [address] [place], [address] PCP Negative Normal < 25 ng/mL [facility] Comment on above: Order Comment: PAIN MANAGMENT Performed By: #### L 3410.9992, L505.5000 ####[facility] [address] [place] [address] THC Negative Normal < 50 ng/mL [facility] Comment on above: Order Comment: PAIN MANAGMENT Performed By: #### L 3410.9992, L505.5000 ####[facility] [address] [place], [address] Urine benzodiazepine levelOr dered By: Ayman Basali on 10-18-2024 Benzodiazepines Ql (U) Negative < 200 ng/mL [facility] Urine cocaine levelOrdered B y: Ayman Basali on 10-18-2024 Cocaine Ql (U) Negative < 300 ng/mL [facility] Urine mevkw-3-krizmzcnrlfgri abinol (THC) measurementOrdered By: Brooks Carpenter on 10-18-2024 Cannabinoids Screen Ql (U) Negative < 50 ng/mL [facility] Urine phencyclidine (PCP) de tectionOrdered By: Brooks Carpenter on 10-18-2024 Phencyclidine Ql (U) Negative < 25 ng/mL [facility] White blood cell (WBC) count Ordered By: Gustabo Pérez on 10-18-2024 WBC (Bld) [#/Vol] 6.6 10*3/uL 4.4-11.0 [facility] Absolute lymphocyte countOrd ered By: Marycarmen Rodriguez on 09-29-2024 Lymphocytes Auto (Unsp spec) [#/Vol] 1.35 10*3/uL 0.83-4.51 [facility] Absolute neutrophil countOrd ered By: Marycarmen Rodriguez on 09-29-2024 Neutrophils (Bld) [#/Vol] 9.2 10*3/uL High 2.0-7.7 [facility] Automated lymphocyte count a s percentage of total leukocytesOrdered By: Marycarmen Rodriguez on 09-29-2024 Lymphocytes/100 WBC Auto (Unsp spec) 10.9 % Low 19-41 [facility] Basophil percentageOrdered B y: Marycarmen Rodriguez on 09-29-2024 Basophils/100 WBC (Bld) 0.6 % 0-1 [facility] CBC W/Diff, Automatedon 09-02 Absolute Lymph 1.35 X10 3/uL Normal 0.83-4.51 [facility] Comment on above: Performed By: #### L 503.6550, L503.0106, L100.0100, L503.6150 ####[facility] [address] [place], [address] Absolute Neut 9.2 X10 3/uL High 2.0-7.7 [facility] Comment on above: Performed By: #### L 503.6550, L503.0106, L100.0100, L503.6150 ####[facility] [address] [place], [address] Basophils/100 WBC (Bld) 0.6 % Normal 0-1 [facility] Comment on above: Performed By: #### L 503.6550, L503.0106, L100.0100, L503.6150 ####[facility] [address] [place], [address] Eosinophils/100 WBC (Bld) 0.7 % Normal 0-5 [facility] Comment on above: Performed By: #### L 503.6550, L503.0106, L100.0100, L503.6150 ####[facility] [address] [place], [address] Erythrocyte distribution width (RBC) [Ratio] 14.2 % Normal 11.6-14.6 [facility] Comment on above: Performed By: #### L 503.6550, L503.0106, L100.0100, L503.6150 ####[facility] [address] [place], [address] Hematocrit (Bld) [Volume fraction] 37.4 % Low 40-54 [facility] Comment on above: Performed By: #### L 503.6550, L503.0106, L100.0100, L503.6150 ####[facility] [address] [place], [address] Hemoglobin (Bld) [Mass/Vol] 12.1 g/dL Low 13.0-16.5 [facility] Comment on above: Performed By: #### L 503.6550, L503.0106, L100.0100, L503.6150 ####[facility] [address] [place], [address] IG% 3.600 High 0.0-0.9 [facility] Comment on above: Result Comment: IG% - Immature Granulocytes (promyelocytes, myelocytes andmetamyelocytes) > 1% indicates that a LEFT SHIFT is Present. Performed By: #### L 503.6550, L503.0106, L100.0100, L503.6150 ####[facility] [address] [place], [address] Lymphocytes/100 WBC (Bld) 10.9 % Low 19-41 [facility] Comment on above: Performed By: #### L 503.6550, L503.0106, L100.0100, L503.6150 ####[facility] [address] [place], [address] MCH (RBC) [Entitic mass] 29.6 pg Normal 27.0-32.0 [facility] Comment on above: Performed By: #### L 503.6550, L503.0106, L100.0100, L503.6150 ####[facility] [address] [place], [address] MCHC (RBC) [Mass/Vol] 32.4 g/dL Normal 32-36 [facility] Comment on above: Performed By: #### L 503.6550, L503.0106, L100.0100, L503.6150 ####[facility] [address] [place], [address] MCV (RBC) [Entitic vol] 91.4 fL Normal 80-94 [facility] Comment on above: Performed By: #### L 503.6550, L503.0106, L100.0100, L503.6150 ####[facility] [address] [place], [address] Monocytes/100 WBC (Bld) 9.9 % Normal 0-10 [facility] Comment on above: Performed By: #### L 503.6550, L503.0106, L100.0100, L503.6150 ####[facility] [address] [place], [address] Neutrophils/100 WBC (Bld) 74.3 % High 47-70 [facility] Comment on above: Performed By: #### L 503.6550, L503.0106, L100.0100, L503.6150 ####[facility] [address] [place], [address] Nucleated RBC (Bld) [#/Vol] 0 10*3/uL Normal 0-5 [facility] Comment on above: Performed By: #### L 503.6550, L503.0106, L100.0100, L503.6150 ####[facility] [address] [place], [address] Platelet mean volume (Bld) [Entitic vol] 12.3 fL High 6.2-12.0 [facility] Comment on above: Performed By: #### L 503.6550, L503.0106, L100.0100, L503.6150 ####[facility] [address] [place], [address] Platelets (Bld) [#/Vol] 169 10*3/uL Normal 150-450 [facility] Comment on above: Performed By: #### L 503.6550, L503.0106, L100.0100, L503.6150 ####[facility] [address] [place], [address] RBC (Bld) [#/Vol] 4.09 10*6/uL Low 4.6-6.2 [facility] Comment on above: Performed By: #### L 503.6550, L503.0106, L100.0100, L503.6150 ####[facility] [address] [place], [address] RDW SD 47.4 fl High 35.1-43.9 [facility] Comment on above: Performed By: #### L 503.6550, L503.0106, L100.0100, L503.6150 ####[facility] [address] [place], [place], [phone] WBC (Bld) [#/Vol] 12.4 10*3/uL High 4.4-11.0 [facility] Comment on above: Performed By: #### L 503.6550, L503.0106, L100.0100, L503.6150 ####[facility] [address] [place], [address] Eosinophil percentageOrdered By: Marycarmen Rodriguez on 09-29-2024 Eosinophils/100 WBC (Bld) 0.7 % 0-5 [facility] Erythrocyte distribution wid th ratioOrdered By: Marycarmen Rodriguez on 09-29-2024 Erythrocyte distribution width (RBC) [Ratio] 14.2 % 11.6-14.6 [facility] Erythrocyte distribution wid th standard deviationOrdered By: Marycarmen Rodriguez on 09-29-2024 Erythrocyte distribution width (RBC) [Ratio] 47.4 fl High 35.1-43.9 [facility] Ferritinon 09-29-2024 Ferritin [Mass/Vol] 454 ng/mL High 37-417 [facility] Comment on above: Performed By: #### L 503.6550, L503.0106, L100.0100, L503.6150 ####[facility] [address] [place], [address] Hematocrit Auto (Bld) [Volum e fraction]Ordered By: Marycarmen Rodriguez on 09-29-2024 Hematocrit (Bld) [Volume fraction] 37.4 % Low 40-54 [facility] Hemoglobin measurementOrdere d By: Marycarmen Rodriguez on 09-29-2024 Hemoglobin (Bld) [Mass/Vol] 12.1 g/dL Low 13.0-16.5 [facility] Immature granulocytes/100 WB C Auto (Bld)Ordered By: Marycarmen Rodriguez on 09-29-2024 Immature granulocytes/100 WBC (Bld) 3.600 % High 0.0-0.9 [facility] Comment on above: IG% - Immature Granu locytes (promyelocytes, myelocytes and metamyelocytes) > 1% indicates that a LEFT SHIFT is Present. Ironon 09-29-2024 Iron [Mass/Vol] 80 ug/dL Normal 65-175 [facility] Comment on above: Performed By: #### L 503.6550, L503.0106, L100.0100, L503.6150 ####[facility] [address] [place], [address] Iron measurement (mass/mass) Ordered By: Marycarmen Rodriguez on 09-29-2024 Iron (Unsp spec) [Mass/Mass] 80 ug/dL 65-175 [facility] MCV (mean corpuscular volume ) determinationOrdered By: Marycarmen Rodriguez on 09-29-2024 MCV (RBC) [Entitic vol] 91.4 fL 80-94 [facility] Mean corpuscular hemoglobin (MCH) determinationOrdered By: Marycarmen Rodriguez on 09-29-2024 MCH (RBC) [Entitic mass] 29.6 pg 27.0-32.0 [facility] Mean corpuscular hemoglobin concentration (MCHC) determinationOrdered By: Marycarmen Rodriguez on 09-29-2024 MCHC (RBC) [Mass/Vol] 32.4 g/dL 32-36 [facility] Mean platelet volume determi nationOrdered By: Marycarmen Rodriguez on 09-29-2024 Platelet mean volume (Bld) [Entitic vol] 12.3 fL High 6.2-12.0 [facility] Monocyte percentageOrdered B y: Marycarmen Rodriguez on 09-29-2024 Monocytes/100 WBC (Bld) 9.9 % 0-10 [facility] Neutrophil percentageOrdered By: Marycarmen Rodriguez on 09-29-2024 Neutrophils/100 WBC (Bld) 74.3 % High 47-70 [facility] Nucleated red blood cell per centageOrdered By: Marycarmen Rodriguez on 09-29-2024 Nucleated RBC/100 WBC (Bld) [Ratio] 0 % 0-5 [facility] Platelet countOrdered By: Ap Rodriguez on 09-29-2024 Platelets (Bld) [#/Vol] 169 10*3/uL 150-450 [facility] RBC Auto (Bld) [#/Vol]Ordere d By: Marycarmen Jennifer on 09-29-2024 RBC (Bld) [#/Vol] 4.09 10*6/uL Low 4.6-6.2 [facility] Serum or plasma ferritin ritu surement (mass/volume)Ordered By: Marycarmen Rodriguez on 09-29-2024 Ferritin [Mass/Vol] 454 ng/mL High 37-417 [facility] Vitamin B12on 09-29-2024 Cobalamin (Vitamin B12) [Mass/Vol] 766 pg/mL Normal 180-914 [facility] Comment on above: Performed By: #### L 503.6550, L503.0106, L100.0100, L503.6150 ####[facility] [address] [place], [address] Vitamin B12 ser/plasOrdered By: Marycarmen Rodriguez on 09-29-2024 Cobalamin (Vitamin B12) [Mass/Vol] 766 pg/mL 180-914 [facility] White blood cell (WBC) count Ordered By: Marycarmen Rodriguez on 09-29-2024 WBC (Bld) [#/Vol] 12.4 10*3/uL High 4.4-11.0 [facility] Absolute lymphocyte countOrd ered By: ELIAZAR Olivas on 09-20-2024 Lymphocytes Auto (Unsp spec) [#/Vol] 1.44 10*3/uL 0.83-4.51 [facility] Absolute neutrophil countOrd ered By: ELIAZAR Olivas on 09-20-2024 Neutrophils (Bld) [#/Vol] 6.6 10*3/uL 2.0-7.7 [facility] Automated lymphocyte count a s percentage of total leukocytesOrdered By: ELIAZAR Olivas on 09-20-2024 Lymphocytes/100 WBC Auto (Unsp spec) 15.5 % Low 19-41 [facility] Basophil percentageOrdered B y: ELIAZAR Olivas on 09-20-2024 Basophils/100 WBC (Bld) 0.3 % 0-1 [facility] CBC W/Diff, Automatedon 05-2 Absolute Lymph 1.44 X10 3/uL Normal 0.83-4.51 [facility] Comment on above: Performed By: #### L 100.0100, L503.7505 ####[facility] [address] [place], [address] Absolute Neut 6.6 X10 3/uL Normal 2.0-7.7 [facility] Comment on above: Performed By: #### L 100.0100, L503.7505 ####[facility] [address] [place], [address] Basophils/100 WBC (Bld) 0.3 % Normal 0-1 [facility] Comment on above: Performed By: #### L 100.0100, L503.7505 ####[facility] [address] [place], [address] Eosinophils/100 WBC (Bld) 1.5 % Normal 0-5 [facility] Comment on above: Performed By: #### L 100.0100, L503.7505 ####[facility] [address] [place], [address] Erythrocyte distribution width (RBC) [Ratio] 14.1 % Normal 11.6-14.6 [facility] Comment on above: Performed By: #### L 100.0100, L503.7505 ####[facility] [address] [place], [address] Hematocrit (Bld) [Volume fraction] 34.8 % Low 40-54 [facility] Comment on above: Performed By: #### L 100.0100, L503.7505 ####[facility] [address] [place], [address] Hemoglobin (Bld) [Mass/Vol] 11.1 g/dL Low 13.0-16.5 [facility] Comment on above: Performed By: #### L 100.0100, L503.7505 ####[facility] [address] [place], [address] IG% 0.800 Normal 0.0-0.9 [facility] Comment on above: Result Comment: IG% - Immature Granulocytes (promyelocytes, myelocytes andmetamyelocytes) > 1% indicates that a LEFT SHIFT is Present. Performed By: #### L 100.0100, L503.7505 ####[facility] [address] [place], [address] Lymphocytes/100 WBC (Bld) 15.5 % Low 19-41 [facility] Comment on above: Performed By: #### L 100.0100, L503.7505 ####[facility] [address] [place], [address] MCH (RBC) [Entitic mass] 29.4 pg Normal 27.0-32.0 [facility] Comment on above: Performed By: #### L 100.0100, L503.7505 ####[facility] [address] [place], [address] MCHC (RBC) [Mass/Vol] 31.9 g/dL Low 32-36 [facility] Comment on above: Performed By: #### L 100.0100, L503.7505 ####[facility] [address] [place], [address] MCV (RBC) [Entitic vol] 92.1 fL Normal 80-94 [facility] Comment on above: Performed By: #### L 100.0100, L503.7505 ####[facility] [address] [place], [address] Monocytes/100 WBC (Bld) 11.1 % High 0-10 [facility] Comment on above: Performed By: #### L 100.0100, L503.7505 ####[facility] [address] [place], [address] Neutrophils/100 WBC (Bld) 70.8 % High 47-70 [facility] Comment on above: Performed By: #### L 100.0100, L503.7505 ####[facility] [address] [place], [address] Nucleated RBC (Bld) [#/Vol] 0 10*3/uL Normal 0-5 [facility] Comment on above: Performed By: #### L 100.0100, L503.7505 ####[facility] [address] [place], [address] Platelet mean volume (Bld) [Entitic vol] 12.6 fL High 6.2-12.0 [facility] Comment on above: Performed By: #### L 100.0100, L503.7505 ####[facility] [address] [place], [address] Platelets (Bld) [#/Vol] 166 10*3/uL Normal 150-450 [facility] Comment on above: Performed By: #### L 100.0100, L503.7505 ####[facility] [address] [place], [address] RBC (Bld) [#/Vol] 3.78 10*6/uL Low 4.6-6.2 [facility] Comment on above: Performed By: #### L 100.0100, L503.7505 ####[facility] [address] [place], [address] RDW SD 48.0 fl High 35.1-43.9 [facility] Comment on above: Performed By: #### L 100.0100, L503.7505 ####[facility] [address] [place], [address] WBC (Bld) [#/Vol] 9.3 10*3/uL Normal 4.4-11.0 [facility] Comment on above: Performed By: #### L 100.0100, L5.5 ####[facility] [address] [place], [address] Eosinophil percentageOrdered By: ELIAZAR Olivas on 09-20-2024 Eosinophils/100 WBC (Bld) 1.5 % 0-5 [facility] Erythrocyte distribution wid th ratioOrdered By: ELIAZAR Olivas on 09-20-2024 Erythrocyte distribution width (RBC) [Ratio] 14.1 % 11.6-14.6 [facility] Erythrocyte distribution wid th standard deviationOrdered By: ELIAZAR Olivas on 09-20-2024 Erythrocyte distribution width (RBC) [Ratio] 48.0 fl High 35.1-43.9 [facility] Hematocrit Auto (Bld) [Volum e fraction]Ordered By: ELIAZAR Olivas on 09-20-2024 Hematocrit (Bld) [Volume fraction] 34.8 % Low 40-54 [facility] Hemoglobin measurementOrdere d By: ELIAZAR Olivas on 09-20-2024 Hemoglobin (Bld) [Mass/Vol] 11.1 g/dL Low 13.0-16.5 [facility] Immature granulocytes/100 WB C Auto (Bld)Ordered By: ELIAZAR Olivas on 09-20-2024 Immature granulocytes/100 WBC (Bld) 0.800 % 0.0-0.9 [facility] Comment on above: IG% - Immature Granu locytes (promyelocytes, myelocytes and metamyelocytes) > 1% indicates that a LEFT SHIFT is Present. L503.7505on 09-20-2024 Natriuretic peptide B (Bld) [Mass/Vol] 84 pg/mL Normal <=1800 [facility] Comment on above: Result Comment: Hear t Failure Unlikely: < 300 pg/mLHeart Failure Likely< 50 Years: > 450 pg/mL50-75 Years: > 900 pg/mL>75 Years: > 1800 pg/mL Performed By: #### L 100.0100, L5.5 ####[facility] [address] [place], [address] MCV (mean corpuscular volume ) determinationOrdered By: ELIAZAR Olivas on 09-20-2024 MCV (RBC) [Entitic vol] 92.1 fL 80-94 [facility] Mean corpuscular hemoglobin (MCH) determinationOrdered By: ELIAZAR Olivas on 09-20-2024 MCH (RBC) [Entitic mass] 29.4 pg 27.0-32.0 [facility] Mean corpuscular hemoglobin concentration (MCHC) determinationOrdered By: ELIAZAR Olivas on 09-20-2024 MCHC (RBC) [Mass/Vol] 31.9 g/dL Low 32-36 [facility] Mean platelet volume determi nationOrdered By: ELIAZAR Olivas on 09-20-2024 Platelet mean volume (Bld) [Entitic vol] 12.6 fL High 6.2-12.0 [facility] Monocyte percentageOrdered B y: ELIAZAR Olivas on 09-20-2024 Monocytes/100 WBC (Bld) 11.1 % High 0-10 [facility] Natriuretic peptide.B prohor efrem N-Terminal [Mass/volume] in Serum or PlasmaOrdered By: ELIAZAR Olivas on 09-20-2024 Natriuretic peptide.B prohormone N-Terminal [Mass/Vol] 84 pg/mL <1800 [facility] Comment on above: Heart Failure Unlike ly: < 300 pg/mLHeart Failure Likely< 50 Years: > 450 pg/mL50-75 Years: > 900 pg/mL>75 Years: > 1800 pg/mL Neutrophil percentageOrdered By: ELIAZAR Olivas on 09-20-2024 Neutrophils/100 WBC (Bld) 70.8 % High 47-70 [facility] Nucleated red blood cell per centageOrdered By: ELIAZAR Olivas on 09-20-2024 Nucleated RBC/100 WBC (Bld) [Ratio] 0 % 0-5 [facility] Platelet countOrdered By: ELIAZAR Olivas on 09-20-2024 Platelets (Bld) [#/Vol] 166 10*3/uL 150-450 [facility] Pulmonary Visit Reporton Pulmonary Visit Report Normal [facility] RBC Auto (Bld) [#/Vol]Ordere d By: ELIAZAR Marenjeremiah Olivas on 09-20-2024 RBC (Bld) [#/Vol] 3.78 10*6/uL Low 4.6-6.2 [facility] White blood cell (WBC) count Ordered By: ELIAZAR Olivas on 09-20-2024 WBC (Bld) [#/Vol] 9.3 10*3/uL 4.4-11.0 [facility] 6 Minute Walk Teston 025 6 Minute Walk Test Normal [facility] Pulmonary Visit Reporton Pulmonary Visit Report Normal [facility] BUN/creatinine ratioOrdered By: Marycarmen Rodriguez on 06-30-2024 Urea nitrogen/Creatinine [Mass ratio] 17.4 mg/mg - [facility] Basic Metabolic Profile (BMP )on 06-30-2024 Anion gap [Moles/Vol] 11 mmol/L Normal 5-15 [facility] Comment on above: Performed By: #### L 500.2500 ####[facility] [address] [place], [address] BUN/CRE 17.4 RATIO Normal - [facility] Comment on above: Performed By: #### L 500.2500 ####[facility] [address] [place], [address] Calcium [Mass/Vol] 9.7 mg/dL Normal 7.6-11.0 [facility] Comment on above: Performed By: #### L 500.2500 ####[facility] [address] [place], [address] Chloride [Moles/Vol] 105 mmol/L Normal 96-108 [facility] Comment on above: Performed By: #### L 500.2500 ####[facility] [address] [place], [address] CO2 [Moles/Vol] 25.3 mmol/L Normal 22.0-29.0 [facility] Comment on above: Performed By: #### L 500.2500 ####[facility] [address] [place], [address] Creatinine [Mass/Vol] 1.80 mg/dL High 0.70-1.20 [facility] Comment on above: Performed By: #### L 500.2500 ####[facility] [address] [place], [address] GFR/1.73 sq M.predicted among non-blacks MDRD (S/P/Bld) [Vol rate/Area] 38 mL/min/{1.73_m2} Low >60 [facility] Comment on above: Result Comment: mL/m in/1.73m2 CKD-EPI Creatinine Equation (2020) Performed By: #### L 500.2500 ####[facility] [address] [place], [address] Glucose [Mass/Vol] 112 mg/dL High 70-99 [facility] Comment on above: Performed By: #### L 500.2500 ####[facility] [address] [place], [address] Potassium [Moles/Vol] 4.8 mmol/L Normal 3.3-5.1 [facility] Comment on above: Performed By: #### L 500.2500 ####[facility] [address] [place], [address] Sodium [Moles/Vol] 141 mmol/L Normal 133-145 [facility] Comment on above: Performed By: #### L 500.2500 ####[facility] [address] [place], [address] Urea nitrogen [Mass/Vol] 31 mg/dL High 4-19 [facility] Comment on above: Performed By: #### L 500.2500 ####[facility] [address] [place], [address] Carbon dioxide measurementOr dered By: Marycarmen Rodriguez on 06-30-2024 CO2 [Moles/Vol] 25.3 mmol/L 22.0-29.0 [facility] Chloride measurementOrdered By: Marycarmen Rodriguez on 06-30-2024 Chloride [Moles/Vol] 105 mmol/L 96-108 [facility] GFR/1.73 sq M.predicted ana lilia g non-blacks MDRD (S/P/Bld) [Vol rate/Area]Ordered By: Marycarmen Rodriguez on 06-30-2024 Estimated GFR (MDRD) Non-Af Amer 38 Low >60 [facility] Comment on above: mL/min/1.73m2 CKD-EP I Creatinine Equation (2020) Glomerular filtration rate ( GFR) estimation/1.73 sq m using serum, plasma, or whole bOrdered By: Marycarmen Rodriguez on 06-30-2024 GFR/1.73 sq M.predicted among non-blacks MDRD (S/P/Bld) [Vol rate/Area] 38 mL/min/{1.73_m2} Low >60 [facility] Comment on above: mL/min/1.73m2 CKD-EP I Creatinine Equation (2020) Serum creatinine measurement (mass/volume)Ordered By: Marycarmen Rodriguez on 06-30-2024 Creatinine [Mass/Vol] 1.80 mg/dL High 0.70-1.20 [facility] Serum glucose measurement (m ass/volume)Ordered By: Marycarmen Rodriguez on 06-30-2024 Glucose [Mass/Vol] 112 mg/dL High 70-99 [facility] Serum or plasma anion gap de termination (moles/volume)Ordered By: Marycarmen Rodriguez on 06-30-2024 Anion gap [Moles/Vol] 11 mmol/L 5-15 [facility] Serum or plasma calcium francine urement (mass/volume)Ordered By: Marycarmen Rodriguez on 06-30-2024 Calcium [Mass/Vol] 9.7 mg/dL 7.6-11.0 [facility] Serum or plasma potassium me asurementOrdered By: Marycarmen Rodriguez on 06-30-2024 Potassium [Moles/Vol] 4.8 mmol/L 3.3-5.1 [facility] Serum or plasma sodium measu rement (moles/volume)Ordered By: Marycarmen Rodriguez on 06-30-2024 Sodium [Moles/Vol] 141 mmol/L 133-145 [facility] Serum or plasma urea nitroge n measurement (mass/volume)Ordered By: Marycarmen Rodriguez on 06-30-2024 Urea nitrogen [Mass/Vol] 31 mg/dL High 4-19 [facility] Absolute neutrophil countOrd ered By: Gustabo Pérez on 04-17-2024 Neutrophils (Bld) [#/Vol] 6.0 10*3/uL 2.0-7.7 [facility] BNP (brain natriuretic pepti de measurement)Ordered By: Gustabo Pérez on 04-17-2024 Natriuretic peptide B (Bld) [Mass/Vol] 37.2 pg/mL 0-100 [facility] BNP,B-Type NATRIURETIC PEPTI Sharon 04-17-2024 Natriuretic peptide B (Bld) [Mass/Vol] 37.2 pg/mL Normal 0-100 [facility] Comment on above: Performed By: #### L 500.2500, L100.0100, L503.6620 ####[facility] [address] [place], [address] Basic Metabolic Profile (BMP )on 04-17-2024 BUN/CRE 11.2 RATIO Normal 10-20 [facility] Comment on above: Performed By: #### L 500.2500, L100.0100, L503.6620 ####[facility] [address] [place], [address] CA,Total 9.0 mg/dL Normal 8.5-10.1 [facility] Comment on above: Performed By: #### L 500.2500, L100.0100, L503.6620 ####[facility] [address] [place], [address] Chloride [Moles/Vol] 107 mmol/L Normal 98-107 [facility] Comment on above: Performed By: #### L 500.2500, L100.0100, L503.6620 ####[facility] [address] [place], [address] CO2 [Moles/Vol] 27.0 mmol/L Normal 21.0-32.0 [facility] Comment on above: Performed By: #### L 500.2500, L100.0100, L503.6620 ####[facility] [address] [place], [address] Creatinine [Mass/Vol] 1.79 mg/dL High 0.70-1.30 [facility] Comment on above: Result Comment: The validity of the calculated GFR GFRAA in patients over70 years has not been determined. Clinical correlation isessential. Performed By: #### L 500.2500, L100.0100, L503.6620 ####[facility] [address] [place], [address] EST GFR - AA 47 mL/min Low >60 [facility] Comment on above: Result Comment: Afri can Gabonese GFR Calc Performed By: #### L 500.2500, L100.0100, L503.6620 ####[facility] [address] [place], [address] GAP 4 Low 5-15 [facility] Comment on above: Performed By: #### L 500.2500, L100.0100, L503.6620 ####[facility] [address] [place], [address] GFR/1.73 sq M.predicted among non-blacks MDRD (S/P/Bld) [Vol rate/Area] 39 mL/min/{1.73_m2} Low >60 [facility] Comment on above: Result Comment: Non- GFR Calc Performed By: #### L 500.2500, L100.0100, L503.6620 ####[facility] [address] [place], [address] Glucose [Mass/Vol] 228 mg/dL High 74-106 [facility] Comment on above: Result Comment: Gluc ose result greater than or equal to 200 mg/dLsuggests DIABETES MELLITUS per A.D.A. criteria. Performed By: #### L 500.2500, L100.0100, L503.6620 ####[facility] [address] [place], [address] Potassium [Moles/Vol] 4.8 mmol/L Normal 3.5-5.1 [facility] Comment on above: Performed By: #### L 500.2500, L100.0100, L503.6620 ####[facility] [address] [place], [address] Sodium [Moles/Vol] 138 mmol/L Normal 136-145 [facility] Comment on above: Performed By: #### L 500.2500, L100.0100, L503.6620 ####[facility] [address] [place], [address] Urea nitrogen [Mass/Vol] 20 mg/dL High 7-18 [facility] Comment on above: Performed By: #### L 500.2500, L100.0100, L503.6620 ####[facility] [address] [place], [address] Basophil percentageOrdered B y: Gustabo Pérez on 04-17-2024 Basophils/100 WBC (Bld) 0.5 % 0-1 [facility] Blood urea nitrogen (BUN)/cr eatinine ratioOrdered By: Gustabo Pérez on 04-17-2024 Urea nitrogen/Creatinine [Mass ratio] 11.2 mg/mg 10- [facility] CBC W/Diff, Automatedon 04-02 Absolute Lymph 1.29 X10 3/uL Normal 0.83-4.51 [facility] Comment on above: Performed By: #### L 500.2500, L100.0100, L503.6620 ####[facility] [address] [place], [address] Absolute Neut 6.0 X10 3/uL Normal 2.0-7.7 [facility] Comment on above: Performed By: #### L 500.2500, L100.0100, L503.6620 ####[facility] [address] [place], [address] Basophils/100 WBC (Bld) 0.5 % Normal 0-1 [facility] Comment on above: Performed By: #### L 500.2500, L100.0100, L503.6620 ####[facility] [address] [place], [address] Eosinophils/100 WBC (Bld) 1.2 % Normal 0-5 [facility] Comment on above: Performed By: #### L 500.2500, L100.0100, L503.6620 ####[facility] [address] [place], [address] Erythrocyte distribution width (RBC) [Ratio] 13.9 % Normal 11.6-14.6 [facility] Comment on above: Performed By: #### L 500.2500, L100.0100, L503.6620 ####[facility] [address] [place], [address] Hematocrit (Bld) [Volume fraction] 41.0 % Normal 40-54 [facility] Comment on above: Performed By: #### L 500.2500, L100.0100, L503.6620 ####[facility] [address] [place], [address] Hemoglobin (Bld) [Mass/Vol] 13.2 g/dL Normal 13.0-16.5 [facility] Comment on above: Performed By: #### L 500.2500, L100.0100, L503.6620 ####[facility] [address] [place], [address] IG% 0.600 Normal 0.0-0.9 [facility] Comment on above: Result Comment: IG% - Immature Granulocytes (promyelocytes, myelocytes andmetamyelocytes) > 1% indicates that a LEFT SHIFT is Present. Performed By: #### L 500.2500, L100.0100, L503.6620 ####[facility] [address] [place], [address] Lymphocytes/100 WBC (Bld) 15.7 % Low 19-41 [facility] Comment on above: Performed By: #### L 500.2500, L100.0100, L503.6620 ####[facility] [address] [place], [address] MCH (RBC) [Entitic mass] 29.2 pg Normal 27.0-32.0 [facility] Comment on above: Performed By: #### L 500.2500, L100.0100, L503.6620 ####[facility] [address] [place], [address] MCHC (RBC) [Mass/Vol] 32.2 g/dL Normal 32-36 [facility] Comment on above: Performed By: #### L 500.2500, L100.0100, L503.6620 ####[facility] [address] [place], [address] MCV (RBC) [Entitic vol] 90.7 fL Normal 80-94 [facility] Comment on above: Performed By: #### L 500.2500, L100.0100, L503.6620 ####[facility] [address] [place], [address] Monocytes/100 WBC (Bld) 8.5 % Normal 0-10 [facility] Comment on above: Performed By: #### L 500.2500, L100.0100, L503.6620 ####[facility] [address] [place], [address] Neutrophils/100 WBC (Bld) 73.5 % High 47-70 [facility] Comment on above: Performed By: #### L 500.2500, L100.0100, L503.6620 ####[facility] [address] [place], [address] Nucleated RBC (Bld) [#/Vol] 0 10*3/uL Normal 0-5 [facility] Comment on above: Performed By: #### L 500.2500, L100.0100, L503.6620 ####[facility] [address] [place], [address] Platelet mean volume (Bld) [Entitic vol] 12.3 fL High 6.2-12.0 [facility] Comment on above: Performed By: #### L 500.2500, L100.0100, L503.6620 ####[facility] [address] [place], [address] Platelets (Bld) [#/Vol] 185 10*3/uL Normal 150-450 [facility] Comment on above: Performed By: #### L 500.2500, L100.0100, L503.6620 ####[facility] [address] [place], [address] RBC (Bld) [#/Vol] 4.52 10*6/uL Low 4.6-6.2 [facility] Comment on above: Performed By: #### L 500.2500, L100.0100, L503.6620 ####[facility] [address] [place], [address] RDW SD 46.4 fl High 35.1-43.9 [facility] Comment on above: Performed By: #### L 500.2500, L100.0100, L503.6620 ####[facility] [address] [place], [place], [address] WBC (Bld) [#/Vol] 8.2 10*3/uL Normal 4.4-11.0 [facility] Comment on above: Performed By: #### L 500.2500, L100.0100, L503.6620 ####[facility] [address] [place], [address] Carbon dioxide measurementOr dered By: Gustabo Pérez on 04-17-2024 CO2 [Moles/Vol] 27.0 mmol/L 21.0-32.0 [facility] Cardiology Visit Reporton Cardiology Visit Report Normal [facility] Chloride measurementOrdered By: Gustabo Pérez on 04-17-2024 Chloride [Moles/Vol] 107 mmol/L 98-107 [facility] Eosinophil percentageOrdered By: Gustabo Pérez on 04-17-2024 Eosinophils/100 WBC (Bld) 1.2 % 0-5 [facility] Erythrocyte distribution wid th ratioOrdered By: Gustabo Pérez on 04-17-2024 Erythrocyte distribution width (RBC) [Ratio] 13.9 % 11.6-14.6 [facility] Erythrocyte distribution wid th standard deviationOrdered By: Gustabo Pérez on 04-17-2024 Erythrocyte distribution width (RBC) [Entitic vol] 46.4 fL High 35.1-43.9 [facility] Estimated glomerular filtrat ion rate (GFR) AmericanOrdered By: Gustabo Pérez on 04-17-2024 Estimated GFR (MDRD) Amer 47 mL/min Low >60 [facility] Comment on above: GFR Calc Glomerular filtration rate ( GFR) estimationOrdered By: Gustabo Pérez on 04-17-2024 Estimated GFR (MDRD) Non-Af Amer 39 mL/min Low >60 [facility] Comment on above: Non- GFR Calc Glucose measurementOrdered B y: Gustabo Pérez on 04-17-2024 Glucose [Mass/Vol] 228 mg/dL High 74-106 [facility] Comment on above: Glucose result great er than or equal to 200 mg/dLsuggests DIABETES MELLITUS per A.D.A. criteria. Hematocrit Auto (Bld) [Volum e fraction]Ordered By: Gustabo Pérez on 04-17-2024 Hematocrit (Bld) [Volume fraction] 41.0 % 40-54 [facility] Hemoglobin measurementOrdere d By: Gustabo Pérez on 04-17-2024 Hemoglobin (Bld) [Mass/Vol] 13.2 g/dL 13.0-16.5 [facility] Immature granulocytes/100 WB C Auto (Bld)Ordered By: Gustabo Pérez on 04-17-2024 Immature granulocytes/100 WBC (Bld) 0.600 % 0.0-0.9 [facility] Comment on above: IG% - Immature Granu locytes (promyelocytes, myelocytes and metamyelocytes) > 1% indicates that a LEFT SHIFT is Present. Lymphocytes Auto (Unsp spec) [#/Vol]Ordered By: Gustabo Pérez on 04-17-2024 Lymphocytes (Bld) [#/Vol] 1.29 10*3/uL 0.83-4.51 [facility] Lymphocytes/100 WBC Auto (Un sp spec)Ordered By: Gustabo Pérez on 04-17-2024 Lymphocytes/100 WBC (Bld) 15.7 % Low 19-41 [facility] MCV (mean corpuscular volume ) determinationOrdered By: Gustabo Pérez on 04-17-2024 MCV (RBC) [Entitic vol] 90.7 fL 80-94 [facility] Mean corpuscular hemoglobin (MCH) determinationOrdered By: Gustabo Pérez on 04-17-2024 MCH (RBC) [Entitic mass] 29.2 pg 27.0-32.0 [facility] Mean corpuscular hemoglobin concentration (MCHC) determinationOrdered By: Gustabo Pérez on 04-17-2024 MCHC (RBC) [Mass/Vol] 32.2 g/dL 32-36 [facility] Mean platelet volume determi nationOrdered By: Gustabo Pérez on 04-17-2024 Platelet mean volume (Bld) [Entitic vol] 12.3 fL High 6.2-12.0 [facility] Monocyte percentageOrdered B y: Gustabo Pérez on 04-17-2024 Monocytes/100 WBC (Bld) 8.5 % 0-10 [facility] Neutrophil percentageOrdered By: Gustabo Pérez on 04-17-2024 Neutrophils/100 WBC (Bld) 73.5 % High 47-70 [facility] Nucleated red blood cell per centageOrdered By: Gustabo Pérez on 04-17-2024 Nucleated RBC/100 WBC (Bld) [Ratio] 0 % 0-5 [facility] Platelet countOrdered By: Lydia Pérez on 04-17-2024 Platelets (Bld) [#/Vol] 185 10*3/uL 150-450 [facility] Potassium measurementOrdered By: Gustabo Pérez on 04-17-2024 Potassium [Moles/Vol] 4.8 mmol/L 3.5-5.1 [facility] RBC Auto (Bld) [#/Vol]Ordere d By: Gustabo Pérez on 04-17-2024 RBC (Bld) [#/Vol] 4.52 10*6/uL Low 4.6-6.2 [facility] Serum anion gap measurementO rdered By: Gustabo Pérez on 04-17-2024 Anion gap [Moles/Vol] 4 mmol/L Low 5-15 [facility] Serum or plasma calcium francine urement (mass/volume)Ordered By: Gustabo Pérez on 04-17-2024 Calcium [Mass/Vol] 9.0 mg/dL 8.5-10.1 [facility] Serum or plasma creatinine m easurement (mass/volume)Ordered By: Gustabo Pérez on 04-17-2024 Creatinine [Mass/Vol] 1.79 mg/dL High 0.70-1.30 [facility] Comment on above: The validity of the calculated GFR & GFRAA in patients over 70 years has not been determined. Clinical correlation is essential. Serum or plasma urea nitroge n measurement (mass/volume)Ordered By: Gustabo Pérez on 04-17-2024 Urea nitrogen [Mass/Vol] 20 mg/dL High 7-18 [facility] Sodium levelOrdered By: Gustabo Pérez on 04-17-2024 Sodium [Moles/Vol] 138 mmol/L 136-145 [facility] White blood cell (WBC) count Ordered By: Gustabo Pérez on 04-17-2024 WBC (Bld) [#/Vol] 8.2 10*3/uL 4.4-11.0 [facility] Office Visit Reporton 2023 Office Visit Report Normal [facility] Albumin to globulin ratioOrd ered By: Jsoe Hay on 03-23-2024 Albumin/Globulin [Mass ratio] 1.1 {ratio} 0.9-2.4 [facility] Bilirubin, totalOrdered By: Jose Hay on 03-23-2024 Bilirubin [Mass/Vol] 2.00 mg/dL High 0.20-1.00 [facility] Comment on above: For patients on eltr ombopag therapy, use of Dimension Ramey TBIL is not recommended. Blood urea nitrogen (BUN)/cr eatinine ratioOrdered By: Jose Hay on 03-23-2024 Urea nitrogen/Creatinine [Mass ratio] 18.0 mg/mg 10-20 [facility] Carbon dioxide measurementOr dered By: Jose Hay on 03-23-2024 CO2 [Moles/Vol] 28.0 mmol/L 21.0-32.0 [facility] Chloride measurementOrdered By: Jose Hay on 03-23-2024 Chloride [Moles/Vol] 104 mmol/L 98-107 [facility] Comprehensive Metabolic Prof ilon 03-23-2024 Albumin [Mass/Vol] 3.7 g/dL Normal 3.2-5.0 [facility] Comment on above: Order Comment: DR REMY ORDERED BMP AND MAGNESIUM.DR HAY ORDERED LIPID CMP TSH. RANGLE Performed By: #### L 500.4050, L501.9520, L501.5200, L500.4100 ####[facility] [address] [place], [address] Albumin/Globulin [Mass ratio] 1.1 {ratio} Normal 0.9-2.4 [facility] Comment on above: Order Comment: DR REMY ORDERED BMP AND MAGNESIUM.DR HAY ORDERED LIPID CMP TSH. RANGLE Performed By: #### L 500.4050, L501.9520, L501.5200, L500.4100 ####[facility] [address] [place], [address] ALK P 92 U/L Normal 45-117 [facility] Comment on above: Order Comment: DR REMY ORDERED BMP AND MAGNESIUM.DR HAY ORDERED LIPID CMP TSH. RANGLE Performed By: #### L 500.4050, L501.9520, L501.5200, L500.4100 ####[facility] [address] [place], [address] ALT [Catalytic activity/Vol] 52 U/L Normal 16-61 [facility] Comment on above: Order Comment: DR REMY ORDERED BMP AND MAGNESIUM.DR HAY ORDERED LIPID CMP TSH. RANGLE Performed By: #### L 500.4050, L501.9520, L501.5200, L500.4100 ####[facility] [address] [place], [address] AST [Catalytic activity/Vol] 28 U/L Normal 15-37 [facility] Comment on above: Order Comment: DR REMY ORDERED BMP AND MAGNESIUM.DR HAY ORDERED LIPID CMP TSH. RANGLE Performed By: #### L 500.4050, L501.9520, L501.5200, L500.4100 ####[facility] [address] [place], [address] Bilirubin [Mass/Vol] 2.00 mg/dL High 0.20-1.00 [facility] Comment on above: Order Comment: DR REMY ORDERED BMP AND MAGNESIUM.DR HAY ORDERED LIPID CMP TSH. RANGLE Result Comment: For patients on eltrombopag therapy, use of Dimension Ramey TBIL is not recommended. Performed By: #### L 500.4050, L501.9520, L501.5200, L500.4100 ####[facility] [address] [place], [address] BUN/CRE 18.0 RATIO Normal 10-20 [facility] Comment on above: Order Comment: DR REMY ORDERED BMP AND MAGNESIUM.DR HAY ORDERED LIPID CMP TSH. RANGLE Performed By: #### L 500.4050, L501.9520, L501.5200, L500.4100 ####[facility] [address] [place], [address] CA,Total 8.8 mg/dL Normal 8.5-10.1 [facility] Comment on above: Order Comment: DR REMY ORDERED BMP AND MAGNESIUM.DR HAY ORDERED LIPID CMP TSH. RANGLE Performed By: #### L 500.4050, L501.9520, L501.5200, L500.4100 ####[facility] [address] [place], [address] Chloride [Moles/Vol] 104 mmol/L Normal 98-107 [facility] Comment on above: Order Comment: DR REMY ORDERED BMP AND MAGNESIUM.DR HAY ORDERED LIPID CMP TSH. RANGLE Performed By: #### L 500.4050, L501.9520, L501.5200, L500.4100 ####[facility] [address] [place], [address] CO2 [Moles/Vol] 28.0 mmol/L Normal 21.0-32.0 [facility] Comment on above: Order Comment: DR REMY ORDERED BMP AND MAGNESIUM.DR HAY ORDERED LIPID CMP TSH. RANGLE Performed By: #### L 500.4050, L501.9520, L501.5200, L500.4100 ####[facility] [address] [place], [address] Creatinine [Mass/Vol] 1.67 mg/dL High 0.70-1.30 [facility] Comment on above: Order Comment: DR REMY ORDERED BMP AND MAGNESIUM.DR HAY ORDERED LIPID CMP TSH. RANGLE Result Comment: The validity of the calculated GFR GFRAA in patients over70 years has not been determined. Clinical correlation isessential. Performed By: #### L 500.4050, L501.9520, L501.5200, L500.4100 ####[facility] [address] [place], [address] EST GFR - AA 51 mL/min Low >60 [facility] Comment on above: Order Comment: DR REMY ORDERED BMP AND MAGNESIUM.DR HAY ORDERED LIPID CMP TSH. RANGLE Result Comment: Afri can Gabonese GFR Calc Performed By: #### L 500.4050, L501.9520, L501.5200, L500.4100 ####[facility] [address] [place], [address] GAP 6 Normal 5-15 [facility] Comment on above: Order Comment: DR REMY ORDERED BMP AND MAGNESIUM.DR HAY ORDERED LIPID CMP TSH. RANGLE Performed By: #### L 500.4050, L501.9520, L501.5200, L500.4100 ####[facility] [address] [place], [address] GFR/1.73 sq M.predicted among non-blacks MDRD (S/P/Bld) [Vol rate/Area] 42 mL/min/{1.73_m2} Low >60 [facility] Comment on above: Order Comment: DR REMY ORDERED BMP AND MAGNESIUM.DR HAY ORDERED LIPID CMP TSH. RANGLE Result Comment: Non- GFR Calc Performed By: #### L 500.4050, L501.9520, L501.5200, L500.4100 ####[facility] [address] [place], [address] Globulin (S) [Mass/Vol] 3.3 g/dL Normal 2.2-4.2 [facility] Comment on above: Order Comment: DR REMY ORDERED BMP AND MAGNESIUM.DR HAY ORDERED LIPID CMP TSH. RANGLE Performed By: #### L 500.4050, L501.9520, L501.5200, L500.4100 ####[facility] [address] [place], [address] Glucose [Mass/Vol] 146 mg/dL High 74-106 [facility] Comment on above: Order Comment: DR REMY ORDERED BMP AND MAGNESIUM.DR HAY ORDERED LIPID CMP TSH. RANGLE Result Comment: Fast ing Glucose result greater than or equal to 126 mg/dLsuggests DIABETES MELLITUS per A.D.A. criteria. Performed By: #### L 500.4050, L501.9520, L501.5200, L500.4100 ####[facility] [address] [place], [address] Potassium [Moles/Vol] 4.4 mmol/L Normal 3.5-5.1 [facility] Comment on above: Order Comment: DR REMY ORDERED BMP AND MAGNESIUM.DR HAY ORDERED LIPID CMP TSH. RANGLE Performed By: #### L 500.4050, L501.9520, L501.5200, L500.4100 ####[facility] [address] [place], [address] Sodium [Moles/Vol] 138 mmol/L Normal 136-145 [facility] Comment on above: Order Comment: DR REMY ORDERED BMP AND MAGNESIUM.DR HAY ORDERED LIPID CMP TSH. RANGLE Performed By: #### L 500.4050, L501.9520, L501.5200, L500.4100 ####[facility] [address] [place], [address] T PROT 7.0 g/dL Normal 6.4-8.2 [facility] Comment on above: Order Comment: DR REMY ORDERED BMP AND MAGNESIUM.DR HAY ORDERED LIPID CMP TSH. RANGLE Performed By: #### L 500.4050, L501.9520, L501.5200, L500.4100 ####[facility] [address] [place], [address] Urea nitrogen [Mass/Vol] 30 mg/dL High 7-18 [facility] Comment on above: Order Comment: DR REMY ORDERED BMP AND MAGNESIUM.DR HAY ORDERED LIPID CMP TSH. RANGLE Performed By: #### L 500.4050, L501.9520, L501.5200, L500.4100 ####[facility] [address] [place], [address] Estimated glomerular filtrat ion rate (GFR) AmericanOrdered By: Jose Hay on 03-23-2024 Estimated GFR (MDRD) Amer 51 mL/min Low >60 [facility] Comment on above: GFR Calc Glomerular filtration rate ( GFR) estimationOrdered By: Jose Hay on 03-23-2024 Estimated GFR (MDRD) Non-Af Amer 42 mL/min Low >60 [facility] Comment on above: Non- GFR Calc Glucose measurementOrdered B y: Jose Hay on 03-23-2024 Glucose [Mass/Vol] 146 mg/dL High 74-106 [facility] Comment on above: Fasting Glucose resu lt greater than or equal to 126 mg/dL suggests DIABETES MELLITUS per A.D.A. criteria. High density lipoprotein (HD L) measurementOrdered By: Jose Hay on 03-23-2024 Cholesterol in HDL [Mass/Vol] 52 mg/dL >40 [facility] Comment on above: The drugs N-Acetylcy steine and Metamizole may falsely depress this assay. Reference Range HDL <40 mg/dL Low HDL Cholesterol HDL >or= 60 mg/dL High HDL Cholesterol Laboratory - Chemistry and C hemistry - challengeOrdered By: Jose Hay on 03-23-2024 AST [Catalytic activity/Vol] 28 U/L 15-37 [facility] Lipid Profileon 03-23-2024 Cholesterol [Mass/Vol] 158 mg/dL Normal 200 [facility] Comment on above: Order Comment: DR REMY ORDERED BMP AND MAGNESIUM.DR HAY ORDERED LIPID CMP TSH. RANGLE Result Comment: <200 mg/dL Desirable 200-240 mg/dL Borderline >240 mg/dL High Risk Performed By: #### L 500.4050, L501.9520, L501.5200, L500.4100 ####[facility] [address] [place], [address] Cholesterol in HDL [Mass/Vol] 52 mg/dL Normal [facility] Comment on above: Order Comment: DR REMY ORDERED BMP AND MAGNESIUM.DR HAY ORDERED LIPID CMP TSH. RANGLE Result Comment: The drugs N-Acetylcysteine and Metamizole may falselydepress this assay. Reference Range HDL <40 mg/dL Low HDL Cholesterol HDL >or= 60 mg/dL High HDL Cholesterol Performed By: #### L 500.4050, L501.9520, L501.5200, L500.4100 ####[facility] [address] [place], [address] Cholesterol in LDL [Mass/Vol] 61 mg/dL Normal 0-130 [facility] Comment on above: Order Comment: DR REMY ORDERED BMP AND MAGNESIUM.DR HAY ORDERED LIPID CMP TSH. RANGLE Performed By: #### L 500.4050, L501.9520, L501.5200, L500.4100 ####[facility] [address] [place], [address] Cholesterol in VLDL [Mass/Vol] 45 mg/dL High 5-40 [facility] Comment on above: Order Comment: DR REMY ORDERED BMP AND MAGNESIUM.DR HAY ORDERED LIPID CMP TSH. RANGLE Performed By: #### L 500.4050, L501.9520, L501.5200, L500.4100 ####[facility] [facility] [id number] [place], [address] Triglyceride [Mass/Vol] 225 mg/dL High [facility] Comment on above: Order Comment: DR REMY ORDERED BMP AND MAGNESIUM.DR HAY ORDERED LIPID CMP TSH. RANGLE Result Comment: The drugs N-Acetylcysteine and Metamizole may falselydepress this assay.Serum Triglycerides Reference Interval Normal <150 mg/dL Borderline high 150 - 199 mg/dL High 200 - 499 mg/dL Very High > or = 500 mg/dL Performed By: #### L 500.4050, L501.9520, L501.5200, L500.4100 ####[facility] [address] [place], [place], [address] Low density lipoprotein (LDL ) cholesterol measurementOrdered By: Jose Hay on 03-23-2024 Cholesterol in LDL [Mass/Vol] 61 mg/dL 0-130 [facility] Magnesiumon 03-23-2024 Magnesium [Mass/Vol] 2.1 mg/dL Normal 1.6-2.6 [facility] Comment on above: Order Comment: DR REMY ORDERED BMP AND MAGNESIUM.DR HAY ORDERED LIPID CMP TSH. RANGLE Performed By: #### L 500.4050, L501.9520, L501.5200, L500.4100 ####[facility] [id number] [place], [place], [address] Magnesium measurementOrdered By: Jose Hay on 03-23-2024 Magnesium [Mass/Vol] 2.1 mg/dL 1.6-2.6 [facility] Potassium measurementOrdered By: Jose Hay on 03-23-2024 Potassium [Moles/Vol] 4.4 mmol/L 3.5-5.1 [facility] Serum anion gap measurementO rdered By: Jose Hay on 03-23-2024 Anion gap [Moles/Vol] 6 mmol/L 5-15 [facility] Serum globulin measurementOr dered By: Jose Hay on 03-23-2024 Globulin (S) [Mass/Vol] 3.3 g/dL 2.2-4.2 [facility] Serum or plasma alanine guerrero otransferase (ALT) measurementOrdered By: Jose Hay on 03-23-2024 ALT [Catalytic activity/Vol] 52 U/L 16-61 [facility] Serum or plasma albumin francine urement (mass/volume)Ordered By: Jose Hay on 03-23-2024 Albumin [Mass/Vol] 3.7 g/dL 3.2-5.0 [facility] Serum or plasma alkaline bell sphatase measurementOrdered By: Jose Hay on 03-23-2024 ALP [Catalytic activity/Vol] 92 U/L 45-117 [facility] Serum or plasma calcium francine urement (mass/volume)Ordered By: Jose Hay on 03-23-2024 Calcium [Mass/Vol] 8.8 mg/dL 8.5-10.1 [facility] Serum or plasma cholesterol measurement (mass/volume)Ordered By: Jose Hay on 03-23-2024 Cholesterol [Mass/Vol] 158 mg/dL <200 [facility] Comment on above: <200 mg/dL Desirable 200-240 mg/dL Borderline >240 mg/dL High Risk Serum or plasma creatinine m easurement (mass/volume)Ordered By: Jose Hay on 03-23-2024 Creatinine [Mass/Vol] 1.67 mg/dL High 0.70-1.30 [facility] Comment on above: The validity of the calculated GFR & GFRAA in patients over 70 years has not been determined. Clinical correlation is essential. Serum or plasma urea nitroge n measurement (mass/volume)Ordered By: Jose Hay on 03-23-2024 Urea nitrogen [Mass/Vol] 30 mg/dL High 7-18 [facility] Sodium levelOrdered By: Ernst Hay on 03-23-2024 Sodium [Moles/Vol] 138 mmol/L 136-145 [facility] TSH QnOrdered By: Jose rodriguez on 03-23-2024 Thyroid Stimulating Hormone (TSH) 5.340 uIU/mL High 0.358-3.74 0 [facility] Thyroid Stim Hormone (TSH)on 03-23-2024 TSH 5.340 uIU/mL High 0.358-3.74 0 [facility] Comment on above: Order Comment: DR REMY ORDERED BMP AND MAGNESIUM.DR HAY ORDERED LIPID CMP TSH. RANGLE Performed By: #### L 500.8272, L501.4106, L501.4260, L500.4100 ####[facility] [id number] [place], [place], [id number] Total proteinOrdered By: Emmanuel Hay on 03-23-2024 Protein [Mass/Vol] 7.0 g/dL 6.4-8.2 [facility] Triglycerides measurementOrd ered By: Jose Hay on 03-23-2024 Triglyceride [Mass/Vol] 225 mg/dL High <199 [facility] Comment on above: The drugs N-Acetylcy steine and Metamizole may falsely depress this assay.Serum Triglycerides Reference Interval Normal <150 mg/dL Borderline high 150 - 199 mg/dL High 200 - 499 mg/dL Very High > or = 500 mg/dL Very low density lipoprotein (VLDL) cholesterol measurementOrdered By: Jose Hay on 03-23-2024 VLDL Cholesterol 45 mg/dL High 5-40 [facility] Cardiology Visit Reporton Cardiology Visit Report Normal [facility] Basophil percentageOrdered B y: Marycarmen Rodriguez on 05-07-2023 Chloride [Moles/Vol] 103 mmol/L 98-107 [facility] Glucose [Mass/Vol] 172 mg/dL 74-106 [facility] Comment on above: Fasting Glucose resu lt greater than or equal to 126 mg/dL suggests DIABETES MELLITUS per A.D.A. criteria. Potassium [Moles/Vol] 3.7 mmol/L 3.5-5.1 [facility] Sodium [Moles/Vol] 138 mmol/L 136-145 [facility] Laboratory - Chemistry and C hemistry - challengeOrdered By: Marycarmen Rodriguez on 05-07-2023 CO2 [Moles/Vol] 27.0 mmol/L 21.0-32.0 [facility] Urea nitrogen/Creatinine [Mass ratio] 13.9 mg/mg 10-20 [facility] No Panel InformationOrdered By: Marycarmen Rodriguez on 05-07-2023 Estimated GFR (MDRD) Amer 74 mL/min >60 [facility] Comment on above: GFR Calc Estimated GFR (MDRD) Non-Af Amer 61 mL/min >60 [facility] Comment on above: Non- GFR Calc Serum or plasma calcium francine urement (mass/volume)Ordered By: Marycarmen Rodriguez on 05-07-2023 Calcium [Mass/Vol] 8.6 mg/dL 8.5-10.1 [facility] Serum or plasma creatinine m easurement (mass/volume)Ordered By: Marycarmen Rodriguez on 05-07-2023 Creatinine [Mass/Vol] 1.22 mg/dL 0.70-1.30 [facility] Comment on above: The validity of the calculated GFR & GFRAA in patients over 70 years has not been determined. Clinical correlation is essential. Serum or plasma urea nitroge n measurement (mass/volume)Ordered By: Marycarmen Rodriguez on 05-07-2023 Urea nitrogen [Mass/Vol] 17 mg/dL 7-18 [facility] Thin prep Papanicolaou smear with manual screeningOrdered By: Marycarmen Rodriguez on 05-07-2023 Thin prep Papanicolaou smear with manual screening 8 5-15 [facility] Basophil percentageOrdered B y: Jose Hay on 12-15-2022 Chloride [Moles/Vol] 110 mmol/L 98-107 [facility] Glucose [Mass/Vol] 121 mg/dL 74-106 [facility] Comment on above: Fasting Glucose resu lt from 100 to 125 mg/dL suggests IMPAIRED HOMEOSTASIS per A.D.A. criteria. Potassium [Moles/Vol] 4.0 mmol/L 3.5-5.1 [facility] Sodium [Moles/Vol] 139 mmol/L 136-145 [facility] WBC (Bld) [#/Vol] 7.3 10*3/uL 4.4-11.0 [facility] Blood erythrocytes count (nu mber/volume)Ordered By: Jose Hay on 12-15-2022 RBC (Bld) [#/Vol] 5.18 10*6/uL 4.6-6.2 [facility] Blood hemoglobin measurement (mass/volume)Ordered By: Jose Hay on 12-15-2022 Hemoglobin (Bld) [Mass/Vol] 15.2 g/dL 13.0-16.5 [facility] Blood platelet mean volumeOr dered By: Jose Hay on 12-15-2022 Platelet mean volume (Bld) [Entitic vol] 12.2 fL 6.2-12.0 [facility] Determination of erythrocyte mean corpuscular volume (MCV)Ordered By: Jose Hay on 12-15-2022 MCV (RBC) [Entitic vol] 90.2 fL 80-94 [facility] Hematocrit Auto (Bld) [Volum e fraction]Ordered By: Jose Hay on 12-15-2022 Hematocrit (Bld) [Volume fraction] 46.7 % 40-54 [facility] Laboratory - Chemistry and C hemistry - challengeOrdered By: Jose Hay on 12-15-2022 CO2 [Moles/Vol] 23.0 mmol/L 21.0-32.0 [facility] Natriuretic peptide B (Bld) [Mass/Vol] 38.1 pg/mL 0-100 [facility] Urea nitrogen/Creatinine [Mass ratio] 13.5 mg/mg 10-20 [facility] Laboratory - Hematology and Cell countsOrdered By: Jose Hay on 12-15-2022 Erythrocyte distribution width (RBC) [Entitic vol] 47.5 fL 35.1-43.9 [facility] Erythrocyte distribution width (RBC) [Ratio] 14.4 % 11.6-14.6 [facility] MCH (RBC) [Entitic mass] 29.3 pg 27.0-32.0 [facility] MCHC Auto (RBC) [Mass/Vol]Or dered By: Jose Hay on 12-15-2022 MCHC (RBC) [Mass/Vol] 32.5 g/dL 32-36 [facility] No Panel InformationOrdered By: Jose Hay on 12-15-2022 Estimated GFR (MDRD) Amer 83 mL/min >60 [facility] Comment on above: GFR Calc Estimated GFR (MDRD) Non-Af Amer 68 mL/min >60 [facility] Comment on above: Non- GFR Calc Platelets bldOrdered By: Emmanuel Hay on 12-15-2022 Platelets (Bld) [#/Vol] 143 10*3/uL 150-450 [facility] Serum or plasma calcium francine urement (mass/volume)Ordered By: Jose Hay on 12-15-2022 Calcium [Mass/Vol] 8.8 mg/dL 8.5-10.1 [facility] Serum or plasma creatinine m easurement (mass/volume)Ordered By: Jose Hay on 12-15-2022 Creatinine [Mass/Vol] 1.11 mg/dL 0.70-1.30 [facility] Comment on above: The validity of the calculated GFR & GFRAA in patients over 70 years has not been determined. Clinical correlation is essential. Serum or plasma urea nitroge n measurement (mass/volume)Ordered By: Jose Hay on 12-15-2022 Urea nitrogen [Mass/Vol] 15 mg/dL 7-18 [facility] Thin prep Papanicolaou smear with manual screeningOrdered By: Jose Hay on 12-15-2022 Thin prep Papanicolaou smear with manual screening 6 5-15 [facility] Absolute lymphocyte countOrd ered By: Luz Elena Mckeon on 10-13-2022 Lymphocytes Auto (Unsp spec) [#/Vol] 1.21 10*3/uL 0.83-4.51 [facility] Basophil percentageOrdered B y: Luz Elena Mckeon on 10-13-2022 Basophils/100 WBC (Bld) 0.5 % 0-1 [facility] Chloride [Moles/Vol] 106 mmol/L 98-107 [facility] Eosinophils/100 WBC (Bld) 1.4 % 0-5 [facility] Glucose [Mass/Vol] 277 mg/dL 74-106 [facility] Comment on above: Glucose result great er than or equal to 200 mg/dLsuggests DIABETES MELLITUS per A.D.A. criteria. Neutrophils (Bld) [#/Vol] 4.0 10*3/uL 2.0-7.7 [facility] Neutrophils/100 WBC (Bld) 68.5 % 47-70 [facility] Potassium [Moles/Vol] 4.1 mmol/L 3.5-5.1 [facility] Sodium [Moles/Vol] 139 mmol/L 136-145 [facility] WBC (Bld) [#/Vol] 5.8 10*3/uL 4.4-11.0 [facility] Blood erythrocytes count (nu mber/volume)Ordered By: Luz Elena Mckeon on 10-13-2022 RBC (Bld) [#/Vol] 4.66 10*6/uL 4.6-6.2 [facility] Blood hemoglobin measurement (mass/volume)Ordered By: Luz Elena Mckeon on 10-13-2022 Hemoglobin (Bld) [Mass/Vol] 13.6 g/dL 13.0-16.5 [facility] Blood lymphocytes/100 leukoc ytesOrdered By: Luz Elena Mckeon on 10-13-2022 Lymphocytes/100 WBC (Bld) 20.7 % 19-41 [facility] Blood monocytes/100 leukocyt esOrdered By: Luz Elena Mckeon on 10-13-2022 Monocytes/100 WBC (Bld) 8.6 % 0-10 [facility] Blood platelet mean volumeOr dered By: Luz Elena Mckeon on 10-13-2022 Platelet mean volume (Bld) [Entitic vol] 12.6 fL 6.2-12.0 [facility] Determination of erythrocyte mean corpuscular volume (MCV)Ordered By: Luz Elena Mckeon on 10-13-2022 MCV (RBC) [Entitic vol] 89.5 fL 80-94 [facility] Hematocrit Auto (Bld) [Volum e fraction]Ordered By: Luz Elena Mckeon on 10-13-2022 Hematocrit (Bld) [Volume fraction] 41.7 % 40-54 [facility] Laboratory - Chemistry and C hemistry - challengeOrdered By: Luz Elena Mckeon on 10-13-2022 CO2 [Moles/Vol] 27.0 mmol/L 21.0-32.0 [facility] Free T4 [Mass/Vol] 0.77 ng/dL 0.76-1.46 [facility] Magnesium [Mass/Vol] 2.1 mg/dL 1.6-2.6 [facility] Natriuretic peptide B (Bld) [Mass/Vol] 47.2 pg/mL 0-100 [facility] Urea nitrogen/Creatinine [Mass ratio] 17.2 mg/mg 10-20 [facility] Laboratory - Hematology and Cell countsOrdered By: Luz Elena Mckeon on 10-13-2022 Erythrocyte distribution width (RBC) [Entitic vol] 46.1 fL 35.1-43.9 [facility] Erythrocyte distribution width (RBC) [Ratio] 14.1 % 11.6-14.6 [facility] Immature granulocytes/100 WBC (Bld) 0.300 % 0.0-0.9 [facility] Comment on above: IG% - Immature Granu locytes (promyelocytes, myelocytes and metamyelocytes) > 1% indicates that a LEFT SHIFT is Present. MCH (RBC) [Entitic mass] 29.2 pg 27.0-32.0 [facility] Nucleated RBC/100 WBC (Bld) [Ratio] 0 % 0-5 [facility] Auto ([facility]BC) [Mass/Vol]Or dered By: Luz Elena Mckeon on 10-13-2022 MCHC (RBC) [Mass/Vol] 32.6 g/dL 32-36 [facility] No Panel InformationOrdered By: Luz Elena Mckeon on 10-13-2022 Estimated GFR (MDRD) Amer 61 mL/min >60 [facility] Comment on above: GFR Calc Estimated GFR (MDRD) Non-Af Amer 50 mL/min >60 [facility] Comment on above: Non- GFR Calc Free Triiodothyronine (T3) pg/dL 2.7 pg/mL 2.18-3.98 [facility] Thyroid Stimulating Hormone (TSH) 4.12 uIU/mL 0.358-3.74 [facility] Platelets bldOrdered By: Loco Mckeon on 10-13-2022 Platelets (Bld) [#/Vol] 126 10*3/uL 150-450 [facility] Serum or plasma calcium francine urement (mass/volume)Ordered By: Luz Elena Mckeon on 10-13-2022 Calcium [Mass/Vol] 8.5 mg/dL 8.5-10.1 [facility] Serum or plasma creatinine m easurement (mass/volume)Ordered By: Luz Elena Mckeon on 10-13-2022 Creatinine [Mass/Vol] 1.45 mg/dL 0.70-1.30 [facility] Comment on above: The validity of the calculated GFR & GFRAA in patients over 70 years has not been determined. Clinical correlation is essential. Serum or plasma urea nitroge n measurement (mass/volume)Ordered By: Luz Elena Mckeon on 10-13-2022 Urea nitrogen [Mass/Vol] 25 mg/dL 7-18 [facility] Thin prep Papanicolaou smear with manual screeningOrdered By: Luz Elena Mckeon on 10-13-2022 Thin prep Papanicolaou smear with manual screening 6 5-15 [facility] COVID-19 virus antigen assay Ordered By: Shaan Santos on 09-21-2022 SARS-CoV-2 (COVID-19) Ag IA.rapid Ql (Resp) [facility] COVID-19 virus antigen assay Ordered By: Dr. Santos on 09-21-2022 SARS-CoV-2 (COVID-19) Ag IA.rapid Ql (Resp) [facility] Glucose Glucometer (BldC) [M ass/Vol]Ordered By: Dr. Santos on 09-21-2022 Glucose [Mass/Vol] 193 mg/dL 74-106 [facility] Comment on above: MANAGEMENT OF PATIEN T CARE PER NURSING PROTOCOL Absolute lymphocyte countOrd ered By: Dr. Leo on 09-18-2022 Lymphocytes Auto (Unsp spec) [#/Vol] 1.83 10*3/uL 0.83-4.51 [facility] Basophil percentageOrdered B y: Dr. Leo on 09-18-2022 Basophils/100 WBC (Bld) 0.3 % 0-1 [facility] Bilirubin [Mass/Vol] 1.20 mg/dL 0.20-1.00 [facility] Comment on above: For patients on eltr ombopag therapy, use of Dimension Ramey TBIL is not recommended. Chloride [Moles/Vol] 108 mmol/L 98-107 [facility] Cholesterol [Mass/Vol] 114 mg/dL <200 [facility] Comment on above: <200 mg/dL Desirable 200-240 mg/dL Borderline >240 mg/dL High Risk Eosinophils/100 WBC (Bld) 2.0 % 0-5 [facility] Glucose [Mass/Vol] 87 mg/dL 74-106 [facility] Neutrophils (Bld) [#/Vol] 4.3 10*3/uL 2.0-7.7 [facility] Neutrophils/100 WBC (Bld) 60.9 % 47-70 [facility] Potassium [Moles/Vol] 3.5 mmol/L 3.5-5.1 [facility] Protein [Mass/Vol] 5.9 g/dL 6.4-8.2 [facility] Sodium [Moles/Vol] 142 mmol/L 136-145 [facility] Triglyceride [Mass/Vol] 174 mg/dL <199 [facility] Comment on above: The drugs N-Acetylcy steine and Metamizole may falsely depress this assay.Serum Triglycerides Reference Interval Normal <150 mg/dL Borderline high 150 - 199 mg/dL High 200 - 499 mg/dL Very High > or = 500 mg/dL WBC (Bld) [#/Vol] 7.0 10*3/uL 4.4-11.0 [facility] Blood erythrocytes count (nu mber/volume)Ordered By: Dr. Leo on 09-18-2022 RBC (Bld) [#/Vol] 4.64 10*6/uL 4.6-6.2 [facility] Blood hemoglobin measurement (mass/volume)Ordered By: Dr. Leo on 09-18-2022 Hemoglobin (Bld) [Mass/Vol] 13.2 g/dL 13.0-16.5 [facility] Blood lymphocytes/100 leukoc ytesOrdered By: Dr. Leo on 09-18-2022 Lymphocytes/100 WBC (Bld) 26.1 % 19-41 [facility] Blood monocytes/100 leukocyt esOrdered By: Dr. Leo on 09-18-2022 Monocytes/100 WBC (Bld) 10.4 % 0-10 [facility] Blood platelet mean volumeOr dered By: Dr. Leo on 09-18-2022 Platelet mean volume (Bld) [Entitic vol] 12.3 fL 6.2-12.0 [facility] Determination of erythrocyte mean corpuscular volume (MCV)Ordered By: Dr. Leo on 09-18-2022 MCV (RBC) [Entitic vol] 90.1 fL 80-94 [facility] Hematocrit Auto (Bld) [Volum e fraction]Ordered By: Dr. Leo on 09-18-2022 Hematocrit (Bld) [Volume fraction] 41.8 % 40-54 [facility] Laboratory - Chemistry and C hemistry - challengeOrdered By: Dr. Leo on 09-18-2022 ALP [Catalytic activity/Vol] 113 U/L 45-117 [facility] ALT [Catalytic activity/Vol] 31 U/L 16-61 [facility] CO2 [Moles/Vol] 26.0 mmol/L 21.0-32.0 [facility] Globulin (S) [Mass/Vol] 3.0 g/dL 2.2-4.2 [facility] Urea nitrogen/Creatinine [Mass ratio] 13.4 mg/mg 10-20 [facility] Laboratory - Hematology and Cell countsOrdered By: Dr. Leo on 09-18-2022 Erythrocyte distribution width (RBC) [Entitic vol] 46.9 fL 35.1-43.9 [facility] Erythrocyte distribution width (RBC) [Ratio] 14.4 % 11.6-14.6 [facility] Immature granulocytes/100 WBC (Bld) 0.300 % 0.0-0.9 [facility] Comment on above: IG% - Immature Granu locytes (promyelocytes, myelocytes and metamyelocytes) > 1% indicates that a LEFT SHIFT is Present. MCH (RBC) [Entitic mass] 28.4 pg 27.0-32.0 [facility] Nucleated RBC/100 WBC (Bld) [Ratio] 0 % 0-5 [facility] MCHC Auto (RBC) [Mass/Vol]Or dered By: Dr. Leo on 09-18-2022 MCHC (RBC) [Mass/Vol] 31.6 g/dL 32-36 [facility] No Panel InformationOrdered By: Dr. Leo on 09-18-2022 Estimated Creatinine Clearance Calc 47.13 ml/min [facility] Estimated GFR (MDRD) Amer 71 mL/min >60 [facility] Comment on above: GFR Calc Estimated GFR (MDRD) Non-Af Amer 58 mL/min >60 [facility] Comment on above: Non- GFR Calc Thyroid Stimulating Hormone (TSH) 3.64 uIU/mL 0.358-3.74 [facility] Troponin I High Sensitivity 8 pg/mL 3.0-78.0 [facility] Comment on above: Please Note: [place] t Units and Gender Specific Reference Ranges. For more information see Policy Stat Procedure Ramey High Sensitivity Troponin (TNIH) and attachments. Platelets bldOrdered By: Dr. Leo on 09-18-2022 Platelets (Bld) [#/Vol] 131 10*3/uL 150-450 [facility] Serum or plasma albumin francine urement (mass/volume)Ordered By: Dr. Leo on 09-18-2022 Albumin [Mass/Vol] 2.9 g/dL 3.2-5.0 [facility] Serum or plasma albumin/glob ulin mass ratioOrdered By: Dr. Leo on 09-18-2022 Albumin/Globulin [Mass ratio] 1.0 {ratio} 0.9-2.4 [facility] Serum or plasma calcium francine urement (mass/volume)Ordered By: Dr. Leo on 09-18-2022 Calcium [Mass/Vol] 7.6 mg/dL 8.5-10.1 [facility] Serum or plasma cholesterol in HDL measurement (mass/volume)Ordered By: Dr. Leo on 09-18-2022 Cholesterol in HDL [Mass/Vol] 36 mg/dL >40 [facility] Comment on above: The drugs N-Acetylcy steine and Metamizole may falsely depress this assay. Reference Range HDL <40 mg/dL Low HDL Cholesterol HDL >or= 60 mg/dL High HDL Cholesterol Serum or plasma cholesterol in VLDL measurement (mass/volume)Ordered By: Dr. Leo on 09-18-2022 Cholesterol in VLDL [Mass/Vol] 35 mg/dL 5-40 [facility] Serum or plasma creatinine m easurement (mass/volume)Ordered By: Dr. Leo on 09-18-2022 Creatinine [Mass/Vol] 1.27 mg/dL 0.70-1.30 [facility] Comment on above: The validity of the calculated GFR & GFRAA in patients over 70 years has not been determined. Clinical correlation is essential. Serum or plasma low density lipoprotein (LDL) cholesterol measurement (mass/volume)Ordered By: Dr. Leo on 09-18-2022 Cholesterol in LDL [Mass/Vol] 43 mg/dL 0-130 [facility] Serum or plasma urea nitroge n measurement (mass/volume)Ordered By: Dr. Leo on 09-18-2022 Urea nitrogen [Mass/Vol] 17 mg/dL 7-18 [facility] Thin prep Papanicolaou smear with manual screeningOrdered By: Dr. Leo on 09-18-2022 Thin prep Papanicolaou smear with manual screening 21 U/L 15-37 [facility] Thin prep Papanicolaou smear with manual screening 8 5-15 [facility] Whole blood hemoglobin A1c/t otal hemoglobin ratio (mass fraction)Ordered By: Dr. Leo on 09-18-2022 HbA1c (Bld) [Mass fraction] 7.7 % 3.8-5.6 [facility] Comment on above: Normal < 5.7 % Predi abetic 5.7 - 6.4 % Diabetic >or= 6.5 % Please note range changes. INR in Blood by Coagulation assayOrdered By: Dr. Hall on 09-17-2022 INR Coag (Bld) [Relative time] 0.9 {INR} [facility] Laboratory - Chemistry and C hemistry - challengeOrdered By: Dr. Leo on 09-17-2022 Magnesium [Mass/Vol] 2.3 mg/dL 1.6-2.6 [facility] Laboratory - CoagulationOrde red By: Dr. Hall on 09-17-2022 aPTT Coag (Bld) [Time] 32.1 s 24.1-36.2 [facility] PT Coag (PPP) [Time] 12.3 s 11.7-14.9 [facility] Basophil percentageOrdered B y: Dr. Hay on 09-01-2022 Bilirubin [Mass/Vol] 0.70 mg/dL 0.20-1.00 [facility] Comment on above: For patients on eltr ombopag therapy, use of Dimension Ramey TBIL is not recommended. Chloride [Moles/Vol] 112 mmol/L 98-107 [facility] Glucose [Mass/Vol] 151 mg/dL 74-106 [facility] Comment on above: Fasting Glucose resu lt greater than or equal to 126 mg/dL suggests DIABETES MELLITUS per A.D.A. criteria. Potassium [Moles/Vol] 3.9 mmol/L 3.5-5.1 [facility] Protein [Mass/Vol] 5.7 g/dL 6.4-8.2 [facility] Sodium [Moles/Vol] 142 mmol/L 136-145 [facility] WBC (Bld) [#/Vol] 4.7 10*3/uL 4.4-11.0 [facility] Blood erythrocytes count (nu mber/volume)Ordered By: Dr. Hay on 09-01-2022 RBC (Bld) [#/Vol] 4.60 10*6/uL 4.6-6.2 [facility] Blood hemoglobin measurement (mass/volume)Ordered By: Dr. Hay on 09-01-2022 Hemoglobin (Bld) [Mass/Vol] 13.0 g/dL 13.0-16.5 [facility] Blood platelet mean volumeOr dered By: Dr. Hay on 09-01-2022 Platelet mean volume (Bld) [Entitic vol] 12.8 fL 6.2-12.0 [facility] Determination of erythrocyte mean corpuscular volume (MCV)Ordered By: Dr. Hay on 09-01-2022 MCV (RBC) [Entitic vol] 89.1 fL 80-94 [facility] Hematocrit Auto (Bld) [Volum e fraction]Ordered By: Dr. Hay on 09-01-2022 Hematocrit (Bld) [Volume fraction] 41.0 % 40-54 [facility] Laboratory - Chemistry and C hemistry - challengeOrdered By: Dr. Hay on 09-01-2022 ALP [Catalytic activity/Vol] 149 U/L 45-117 [facility] ALT [Catalytic activity/Vol] 35 U/L 16-61 [facility] CO2 [Moles/Vol] 27.0 mmol/L 21.0-32.0 [facility] Globulin (S) [Mass/Vol] 2.9 g/dL 2.2-4.2 [facility] Urea nitrogen/Creatinine [Mass ratio] 15.8 mg/mg 10-20 [facility] Laboratory - Hematology and Cell countsOrdered By: Dr. Hay on 09-01-2022 Erythrocyte distribution width (RBC) [Entitic vol] 44.1 fL 35.1-43.9 [facility] Erythrocyte distribution width (RBC) [Ratio] 13.5 % 11.6-14.6 [facility] MCH (RBC) [Entitic mass] 28.3 pg 27.0-32.0 [facility] MCHC Auto (RBC) [Mass/Vol]Or dered By: Dr. Hay on 09-01-2022 MCHC (RBC) [Mass/Vol] 31.7 g/dL 32-36 [facility] No Panel InformationOrdered By: Dr. Hay on 09-01-2022 Estimated Creatinine Clearance Calc 46.51 ml/min [facility] Estimated GFR (MDRD) Amer 67 mL/min >60 [facility] Comment on above: GFR Calc Estimated GFR (MDRD) Non-Af Amer 55 mL/min >60 [facility] Comment on above: Non- GFR Calc Platelets bldOrdered By: Dr. Hay on 09-01-2022 Platelets (Bld) [#/Vol] 106 10*3/uL 150-450 [facility] Serum or plasma albumin francine urement (mass/volume)Ordered By: Dr. Hay on 09-01-2022 Albumin [Mass/Vol] 2.8 g/dL 3.2-5.0 [facility] Serum or plasma albumin/glob ulin mass ratioOrdered By: Dr. Hay on 09-01-2022 Albumin/Globulin [Mass ratio] 1.0 {ratio} 0.9-2.4 [facility] Serum or plasma calcium francine urement (mass/volume)Ordered By: Dr. Hay on 09-01-2022 Calcium [Mass/Vol] 8.0 mg/dL 8.5-10.1 [facility] Serum or plasma creatinine m easurement (mass/volume)Ordered By: Dr. Hay on 09-01-2022 Creatinine [Mass/Vol] 1.33 mg/dL 0.70-1.30 [facility] Comment on above: The validity of the calculated GFR & GFRAA in patients over 70 years has not been determined. Clinical correlation is essential. Serum or plasma urea nitroge n measurement (mass/volume)Ordered By: Dr. Hay on 09-01-2022 Urea nitrogen [Mass/Vol] 21 mg/dL 7-18 [facility] Thin prep Papanicolaou smear with manual screeningOrdered By: Dr. Hay on 09-01-2022 Thin prep Papanicolaou smear with manual screening 21 U/L 15-37 [facility] Thin prep Papanicolaou smear with manual screening 3 5-15 [facility] No Panel InformationOrdered By: Dr. Hay on 08-31-2022 Activated Clotting Time 275 sec 74-137 [facility] Basophil percentageOrdered B y: Dr. Hay on 08-19-2022 Chloride [Moles/Vol] 108 mmol/L 98-107 [facility] Glucose [Mass/Vol] 158 mg/dL 74-106 [facility] Comment on above: Fasting Glucose resu lt greater than or equal to 126 mg/dL suggests DIABETES MELLITUS per A.D.A. criteria. Potassium [Moles/Vol] 4.3 mmol/L 3.5-5.1 [facility] Sodium [Moles/Vol] 137 mmol/L 136-145 [facility] WBC (Bld) [#/Vol] 8.2 10*3/uL 4.4-11.0 [facility] Blood erythrocytes count (nu mber/volume)Ordered By: Dr. Hay on 08-19-2022 RBC (Bld) [#/Vol] 5.05 10*6/uL 4.6-6.2 [facility] Blood hemoglobin measurement (mass/volume)Ordered By: Dr. Hay on 08-19-2022 Hemoglobin (Bld) [Mass/Vol] 14.3 g/dL 13.0-16.5 [facility] Blood platelet mean volumeOr dered By: Dr. Hay on 08-19-2022 Platelet mean volume (Bld) [Entitic vol] 12.5 fL 6.2-12.0 [facility] Determination of erythrocyte mean corpuscular volume (MCV)Ordered By: Dr. Hay on 08-19-2022 MCV (RBC) [Entitic vol] 88.3 fL 80-94 [facility] Hematocrit Auto (Bld) [Volum e fraction]Ordered By: Dr. Hay on 08-19-2022 Hematocrit (Bld) [Volume fraction] 44.6 % 40-54 [facility] INR in Blood by Coagulation assayOrdered By: Dr. Hay on 08-19-2022 INR Coag (Bld) [Relative time] 1.1 {INR} [facility] Laboratory - Chemistry and C hemistry - challengeOrdered By: Dr. Hay on 08-19-2022 CO2 [Moles/Vol] 25.0 mmol/L 21.0-32.0 [facility] Urea nitrogen/Creatinine [Mass ratio] 12.0 mg/mg 10-20 [facility] Laboratory - CoagulationOrde red By: Dr. Hay on 08-19-2022 aPTT Coag (Bld) [Time] 30.9 s 24.1-36.2 [facility] PT Coag (PPP) [Time] 13.4 s 11.7-14.9 [facility] Laboratory - Hematology and Cell countsOrdered By: Dr. Hay on 08-19-2022 Erythrocyte distribution width (RBC) [Entitic vol] 44.8 fL 35.1-43.9 [facility] Erythrocyte distribution width (RBC) [Ratio] 13.9 % 11.6-14.6 [facility] MCH (RBC) [Entitic mass] 28.3 pg 27.0-32.0 [facility] MCHC Auto (RBC) [Mass/Vol]Or dered By: Dr. Hay on 08-19-2022 MCHC (RBC) [Mass/Vol] 32.1 g/dL 32-36 [facility] No Panel InformationOrdered By: Dr. Hay on 08-19-2022 Estimated GFR (MDRD) Amer 72 mL/min >60 [facility] Comment on above: GFR Calc Estimated GFR (MDRD) Non-Af Amer 60 mL/min >60 [facility] Comment on above: Non- GFR Calc Platelets bldOrdered By: Dr. Hay on 08-19-2022 Platelets (Bld) [#/Vol] 151 10*3/uL 150-450 [facility] Serum or plasma calcium francine urement (mass/volume)Ordered By: Dr. Hay on 08-19-2022 Calcium [Mass/Vol] 9.0 mg/dL 8.5-10.1 [facility] Serum or plasma creatinine m easurement (mass/volume)Ordered By: Dr. Hay on 08-19-2022 Creatinine [Mass/Vol] 1.25 mg/dL 0.70-1.30 [facility] Comment on above: The validity of the calculated GFR & GFRAA in patients over 70 years has not been determined. Clinical correlation is essential. Serum or plasma urea nitroge n measurement (mass/volume)Ordered By: Dr. Hay on 08-19-2022 Urea nitrogen [Mass/Vol] 15 mg/dL 7-18 [facility] Thin prep Papanicolaou smear with manual screeningOrdered By: Dr. Hay on 08-19-2022 Thin prep Papanicolaou smear with manual screening 4 5-15 [facility] Basophil percentageOrdered B y: Dr. Rodriguez on 06-11-2022 Chloride [Moles/Vol] 102 mmol/L 98-107 [facility] Glucose [Mass/Vol] 274 mg/dL 74-106 [facility] Comment on above: Glucose result great er than or equal to 200 mg/dLsuggests DIABETES MELLITUS per A.D.A. criteria. Potassium [Moles/Vol] 4.3 mmol/L 3.5-5.1 [facility] Sodium [Moles/Vol] 136 mmol/L 136-145 [facility] Laboratory - Chemistry and C hemistry - challengeOrdered By: Dr. Rodriguez on 06-11-2022 CO2 [Moles/Vol] 24.0 mmol/L 21.0-32.0 [facility] Magnesium [Mass/Vol] 2.2 mg/dL 1.6-2.6 [facility] Urea nitrogen/Creatinine [Mass ratio] 15.7 mg/mg 10-20 [facility] No Panel InformationOrdered By: Dr. Rodriguez on 06-11-2022 Estimated GFR (MDRD) Amer 67 mL/min >60 [facility] Comment on above: GFR Calc Estimated GFR (MDRD) Non-Af Amer 55 mL/min >60 [facility] Comment on above: Non- GFR Calc Serum or plasma calcium francine urement (mass/volume)Ordered By: Dr. Rodriguez on 06-11-2022 Calcium [Mass/Vol] 8.7 mg/dL 8.5-10.1 [facility] Serum or plasma creatinine m easurement (mass/volume)Ordered By: Dr. Rodriguez on 06-11-2022 Creatinine [Mass/Vol] 1.34 mg/dL 0.70-1.30 [facility] Comment on above: The validity of the calculated GFR & GFRAA in patients over 70 years has not been determined. Clinical correlation is essential. Serum or plasma urea nitroge n measurement (mass/volume)Ordered By: Dr. Rodriguez on 06-11-2022 Urea nitrogen [Mass/Vol] 21 mg/dL 7-18 [facility] Thin prep Papanicolaou smear with manual screeningOrdered By: Dr. Rodriguez on 06-11-2022 Thin prep Papanicolaou smear with manual screening 10 5-15 [facility] Absolute lymphocyte countOrd ered By: Luz Elena Mckeon on 04-14-2022 Lymphocytes Auto (Unsp spec) [#/Vol] 1.60 10*3/uL 0.83-4.51 [facility] Basophil percentageOrdered B y: Luz Elena Mckeon on 04-14-2022 Basophils/100 WBC (Bld) 0.3 % 0-1 [facility] Chloride [Moles/Vol] 106 mmol/L 98-107 [facility] Eosinophils/100 WBC (Bld) 1.5 % 0-5 [facility] Glucose [Mass/Vol] 211 mg/dL 74-106 [facility] Comment on above: Glucose result great er than or equal to 200 mg/dLsuggests DIABETES MELLITUS per A.D.A. criteria. Neutrophils (Bld) [#/Vol] 3.8 10*3/uL 2.0-7.7 [facility] Neutrophils/100 WBC (Bld) 61.3 % 47-70 [facility] Potassium [Moles/Vol] 4.4 mmol/L 3.5-5.1 [facility] Sodium [Moles/Vol] 136 mmol/L 136-145 [facility] WBC (Bld) [#/Vol] 6.2 10*3/uL 4.4-11.0 [facility] Blood erythrocytes count (nu mber/volume)Ordered By: Luz Elena Mckeon on 04-14-2022 RBC (Bld) [#/Vol] 4.87 10*6/uL 4.6-6.2 [facility] Blood hemoglobin measurement (mass/volume)Ordered By: Luz Elena Mckeon on 04-14-2022 Hemoglobin (Bld) [Mass/Vol] 14.1 g/dL 13.0-16.5 [facility] Blood lymphocytes/100 leukoc ytesOrdered By: Luz Elena Mckeon on 04-14-2022 Lymphocytes/100 WBC (Bld) 25.8 % 19-41 [facility] Blood monocytes/100 leukocyt esOrdered By: Luz Elena Mckeon on 04-14-2022 Monocytes/100 WBC (Bld) 10.8 % 0-10 [facility] Blood platelet mean volumeOr dered By: Luz Elena Mckeon on 04-14-2022 Platelet mean volume (Bld) [Entitic vol] 12.8 fL 6.2-12.0 [facility] Determination of erythrocyte mean corpuscular volume (MCV)Ordered By: Luz Elena Mckeon on 04-14-2022 MCV (RBC) [Entitic vol] 88.1 fL 80-94 [facility] Hematocrit Auto (Bld) [Volum e fraction]Ordered By: Luz Elena Mckeon on 04-14-2022 Hematocrit (Bld) [Volume fraction] 42.9 % 40-54 [facility] Laboratory - Chemistry and C hemistry - challengeOrdered By: Luz Elena Mckeon on 04-14-2022 CO2 [Moles/Vol] 25.0 mmol/L 21.0-32.0 [facility] Natriuretic peptide B (Bld) [Mass/Vol] 54.2 pg/mL 0-100 [facility] Urea nitrogen/Creatinine [Mass ratio] 13.3 mg/mg 10-20 [facility] Laboratory - Hematology and Cell countsOrdered By: Luz Elena Mckeon on 04-14-2022 Erythrocyte distribution width (RBC) [Entitic vol] 44.7 fL 35.1-43.9 [facility] Erythrocyte distribution width (RBC) [Ratio] 13.9 % 11.6-14.6 [facility] Immature granulocytes/100 WBC (Bld) 0.300 % 0.0-0.9 [facility] Comment on above: IG% - Immature Granu locytes (promyelocytes, myelocytes and metamyelocytes) > 1% indicates that a LEFT SHIFT is Present. MCH (RBC) [Entitic mass] 29.0 pg 27.0-32.0 [facility] Nucleated RBC/100 WBC (Bld) [Ratio] 0 % 0-5 [facility] MCHC Auto (RBC) [Mass/Vol]Or dered By: Luz Elena Mckeon on 04-14-2022 MCHC (RBC) [Mass/Vol] 32.9 g/dL 32-36 [facility] No Panel InformationOrdered By: Luz Elena Mckeon on 04-14-2022 Estimated GFR (MDRD) Amer 81 mL/min >60 [facility] Comment on above: GFR Calc Estimated GFR (MDRD) Non-Af Amer 67 mL/min >60 [facility] Comment on above: Non- GFR Calc Platelets bldOrdered By: Loco Mckeon on 04-14-2022 Platelets (Bld) [#/Vol] 150 10*3/uL 150-450 [facility] Serum or plasma calcium francine urement (mass/volume)Ordered By: Luz Elena Mckeon on 04-14-2022 Calcium [Mass/Vol] 8.4 mg/dL 8.5-10.1 [facility] Serum or plasma creatinine m easurement (mass/volume)Ordered By: Luz Elena Mckeon on 04-14-2022 Creatinine [Mass/Vol] 1.13 mg/dL 0.70-1.30 [facility] Comment on above: The validity of the calculated GFR & GFRAA in patients over 70 years has not been determined. Clinical correlation is essential. Serum or plasma urea nitroge n measurement (mass/volume)Ordered By: Luz Elena Mckeon on 04-14-2022 Urea nitrogen [Mass/Vol] 15 mg/dL 7-18 [facility] Thin prep Papanicolaou smear with manual screeningOrdered By: Luz Elena Mckeon on 04-14-2022 Thin prep Papanicolaou smear with manual screening 5 5-15 [facility] Laboratory - Microbiology an d Antimicrobial susceptibilityon 03-27-2022 SARS-CoV-2 (COVID-19) RNA REAGAN+probe Ql (Unsp spec) Detected [facility] No Panel Informationon 03-27 Influenza Types A,B Rapid (Clinic) Not detected [facility] Absolute lymphocyte counton 11-21-2021 Lymphocytes Auto (Unsp spec) [#/Vol] 1.23 10*3/uL 0.83-4.51 [facility] Work Phone: Basophil percentageon 2021 Basophils/100 WBC (Bld) 0.3 % 0-1 [facility] Work Phone: Chloride [Moles/Vol] 106 mmol/L 98-107 [facility] Work Phone: Eosinophils/100 WBC (Bld) 1.2 % 0-5 [facility] Work Phone: Glucose [Mass/Vol] 166 mg/dL 74-106 [facility] Work Phone: Comment on above: Fasting Glucose resu lt greater than or equal to 126 mg/dL suggests DIABETES MELLITUS per A.D.A. criteria. Neutrophils (Bld) [#/Vol] 4.7 10*3/uL 2.0-7.7 [facility] Work Phone: [phone] Neutrophils/100 WBC (Bld) 69.8 % 47-70 [facility] Work Phone: Potassium [Moles/Vol] 4.2 mmol/L 3.5-5.1 [facility] Work Phone: [phone] Sodium [Moles/Vol] 140 mmol/L 136-145 [facility] Work Phone: WBC (Bld) [#/Vol] 6.7 10*3/uL 4.4-11.0 [facility] Work Phone: Blood erythrocytes count (nu mber/volume)on 11-21-2021 RBC (Bld) [#/Vol] 5.06 10*6/uL 4.6-6.2 [facility] Work Phone: Blood hemoglobin measurement (mass/volume)on 11-21-2021 Hemoglobin (Bld) [Mass/Vol] 14.3 g/dL 13.0-16.5 [facility] Work Phone: [phone] Blood lymphocytes/100 leukoc yteson 11-21-2021 Lymphocytes/100 WBC (Bld) 18.4 % 19-41 [facility] Work Phone: [phone] Blood monocytes/100 leukocyt eson 11-21-2021 Monocytes/100 WBC (Bld) 9.9 % 0-10 [facility] Work Phone: [phone] Blood platelet mean volumeon 11-21-2021 Platelet mean volume (Bld) [Entitic vol] 12.4 fL 6.2-12.0 [facility] Work Phone: [phone] Determination of erythrocyte mean corpuscular volume (MCV)on 11-21-2021 MCV (RBC) [Entitic vol] 89.1 fL 80-94 [facility] Work Phone: Hematocrit Auto (Bld) [Volum e fraction]on 11-21-2021 Hematocrit (Bld) [Volume fraction] 45.1 % 40-54 [facility] Work Phone: Laboratory - Chemistry and C hemistry - challengeon 11-21-2021 CO2 [Moles/Vol] 27.0 mmol/L 21.0-32.0 [facility] Work Phone: Natriuretic peptide B (Bld) [Mass/Vol] 60.9 pg/mL 0-100 [facility] Work Phone: Urea nitrogen/Creatinine [Mass ratio] 12.9 mg/mg 10-20 [facility] Work Phone: Laboratory - Hematology and Cell countson 11-21-2021 Erythrocyte distribution width (RBC) [Entitic vol] 45.1 fL 35.1-43.9 [facility] Work Phone: Erythrocyte distribution width (RBC) [Ratio] 14.0 % 11.6-14.6 [facility] Work Phone: Immature granulocytes/100 WBC (Bld) 0.400 % 0.0-0.9 [facility] Work Phone: Comment on above: IG% - Immature Granu locytes (promyelocytes, myelocytes and metamyelocytes) > 1% indicates that a LEFT SHIFT is Present. MCH (RBC) [Entitic mass] 28.3 pg 27.0-32.0 [facility] Work Phone: Nucleated RBC/100 WBC (Bld) [Ratio] 0 % 0-5 [facility] Work Phone: MCHC Auto (RBC) [Mass/Vol]on 11-21-2021 MCHC (RBC) [Mass/Vol] 31.7 g/dL 32-36 [facility] Work Phone: No Panel Informationon 11-21 Estimated GFR (MDRD) Amer 63 mL/min >60 [facility] Work Phone: Comment on above: GFR Calc Estimated GFR (MDRD) Non-Af Amer 52 mL/min >60 [facility] Work Phone: Comment on above: Non- GFR Calc Platelets bldon 11-21-2021 Platelets (Bld) [#/Vol] 135 10*3/uL 150-450 [facility] Work Phone: Serum or plasma calcium francine urement (mass/volume)on 11-21-2021 Calcium [Mass/Vol] 8.9 mg/dL 8.5-10.1 [facility] Work Phone: Serum or plasma creatinine m easurement (mass/volume)on 11-21-2021 Creatinine [Mass/Vol] 1.40 mg/dL 0.70-1.30 [facility] Work Phone: Comment on above: The validity of the calculated GFR & GFRAA in patients over 70 years has not been determined. Clinical correlation is essential. Serum or plasma urea nitroge n measurement (mass/volume)on 11-21-2021 Urea nitrogen [Mass/Vol] 18 mg/dL 7-18 [facility] Work Phone: Thin prep Papanicolaou smear with manual screeningon 11-21-2021 Thin prep Papanicolaou smear with manual screening 7 5-15 [facility] Work Phone: Absolute lymphocyte counton 11-16-2021 Lymphocytes Auto (Unsp spec) [#/Vol] 2.06 10*3/uL 0.83-4.51 [facility] Work Phone: Basophil percentageon 2021 Basophils/100 WBC (Bld) 0.3 % 0-1 [facility] Work Phone: Chloride [Moles/Vol] 104 mmol/L 98-107 [facility] Work Phone: Eosinophils/100 WBC (Bld) 1.4 % 0-5 [facility] Work Phone: Glucose [Mass/Vol] 170 mg/dL 74-106 [facility] Work Phone: Comment on above: Fasting Glucose resu lt greater than or equal to 126 mg/dL suggests DIABETES MELLITUS per A.D.A. criteria. Neutrophils (Bld) [#/Vol] 5.0 10*3/uL 2.0-7.7 [facility] Work Phone: Neutrophils/100 WBC (Bld) 62.3 % 47-70 [facility] Work Phone: Potassium [Moles/Vol] 4.4 mmol/L 3.5-5.1 [facility] Work Phone: Comment on above: Slight Hemolysis, Re sult may be falsely increased. Sodium [Moles/Vol] 137 mmol/L 136-145 [facility] Work Phone: WBC (Bld) [#/Vol] 7.9 10*3/uL 4.4-11.0 [facility] Work Phone: Blood erythrocytes count (nu mber/volume)on 11-16-2021 RBC (Bld) [#/Vol] 5.42 10*6/uL 4.6-6.2 [facility] Work Phone: Blood hemoglobin measurement (mass/volume)on 11-16-2021 Hemoglobin (Bld) [Mass/Vol] 15.6 g/dL 13.0-16.5 [facility] Work Phone: [phone] Blood lymphocytes/100 leukoc yteson 11-16-2021 Lymphocytes/100 WBC (Bld) 26.0 % 19-41 [facility] Work Phone: Blood monocytes/100 leukocyt eson 11-16-2021 Monocytes/100 WBC (Bld) 9.6 % 0-10 [facility] Work Phone: Blood platelet mean volumeon 11-16-2021 Platelet mean volume (Bld) [Entitic vol] 12.9 fL 6.2-12.0 [facility] Work Phone: Determination of erythrocyte mean corpuscular volume (MCV)on 11-16-2021 MCV (RBC) [Entitic vol] 89.3 fL 80-94 [facility] Work Phone: Hematocrit Auto (Bld) [Volum e fraction]on 11-16-2021 Hematocrit (Bld) [Volume fraction] 48.4 % 40-54 [facility] Work Phone: Laboratory - Chemistry and C hemistry - challengeon 11-16-2021 CO2 [Moles/Vol] 27.0 mmol/L 21.0-32.0 [facility] Work Phone: Urea nitrogen/Creatinine [Mass ratio] 11.6 mg/mg 10-20 [facility] Work Phone: Laboratory - Hematology and Cell countson 11-16-2021 Erythrocyte distribution width (RBC) [Entitic vol] 44.5 fL 35.1-43.9 [facility] Work Phone: Erythrocyte distribution width (RBC) [Ratio] 13.8 % 11.6-14.6 [facility] Work Phone: Immature granulocytes/100 WBC (Bld) 0.400 % 0.0-0.9 [facility] Work Phone: Comment on above: IG% - Immature Granu locytes (promyelocytes, myelocytes and metamyelocytes) > 1% indicates that a LEFT SHIFT is Present. MCH (RBC) [Entitic mass] 28.8 pg 27.0-32.0 [facility] Work Phone: Nucleated RBC/100 WBC (Bld) [Ratio] 0 % 0-5 [facility] Work Phone: MCHC Auto (RBC) [Mass/Vol]on 11-16-2021 MCHC (RBC) [Mass/Vol] 32.2 g/dL 32-36 [facility] Work Phone: No Panel Informationon 11-16 Troponin I High Sensitivity 7 pg/mL 3.0-78.0 [facility] Work Phone: Comment on above: Please Note: [place] t Units and Gender Specific Reference Ranges. For more information see Policy Stat Procedure [place] High Sensitivity Troponin (TNIH) and attachments. Estimated Creatinine Clearance Calc 45.54 ml/min [facility] Work Phone: Estimated GFR (MDRD) Amer 64 mL/min >60 [facility] Work Phone: Comment on above: GFR Calc Estimated GFR (MDRD) Non-Af Amer 53 mL/min >60 [facility] Work Phone: Comment on above: Non- GFR Calc Platelets bldon 11-16-2021 Platelets (Bld) [#/Vol] 142 10*3/uL 150-450 [facility] Work Phone: Serum or plasma calcium francine urement (mass/volume)on 11-16-2021 Calcium [Mass/Vol] 9.2 mg/dL 8.5-10.1 [facility] Work Phone: Serum or plasma creatinine m easurement (mass/volume)on 11-16-2021 Creatinine [Mass/Vol] 1.38 mg/dL 0.70-1.30 [facility] Work Phone: Comment on above: The validity of the calculated GFR & GFRAA in patients over 70 years has not been determined. Clinical correlation is essential. Serum or plasma urea nitroge n measurement (mass/volume)on 11-16-2021 Urea nitrogen [Mass/Vol] 16 mg/dL 7-18 [facility] Work Phone: Thin prep Papanicolaou smear with manual screeningon 11-16-2021 Thin prep Papanicolaou smear with manual screening 6 5-15 [facility] Work Phone: Basophil percentageon 2021 Chloride [Moles/Vol] 105 mmol/L 98-107 [facility] Work Phone: Glucose [Mass/Vol] 246 mg/dL 74-106 [facility] Work Phone: Comment on above: Glucose result great er than or equal to 200 mg/dLsuggests DIABETES MELLITUS per A.D.A. criteria. Potassium [Moles/Vol] 4.2 mmol/L 3.5-5.1 [facility] Work Phone: Sodium [Moles/Vol] 137 mmol/L 136-145 [facility] Work Phone: Laboratory - Chemistry and C hemistry - challengeon 10-28-2021 CO2 [Moles/Vol] 24.0 mmol/L 21.0-32.0 [facility] Work Phone: Urea nitrogen/Creatinine [Mass ratio] 15.6 mg/mg 10-20 [facility] Work Phone: No Panel Informationon 10-28 Estimated GFR (MDRD) Amer 74 mL/min >60 [facility] Work Phone: Comment on above: GFR Calc Estimated GFR (MDRD) Non-Af Amer 61 mL/min >60 [facility] Work Phone: Comment on above: Non- GFR Calc Serum or plasma calcium francine urement (mass/volume)on 10-28-2021 Calcium [Mass/Vol] 8.9 mg/dL 8.5-10.1 [facility] Work Phone: Serum or plasma creatinine m easurement (mass/volume)on 10-28-2021 Creatinine [Mass/Vol] 1.22 mg/dL 0.70-1.30 [facility] Work Phone: Comment on above: The validity of the calculated GFR & GFRAA in patients over 70 years has not been determined. Clinical correlation is essential. Serum or plasma urea nitroge n measurement (mass/volume)on 10-28-2021 Urea nitrogen [Mass/Vol] 19 mg/dL 7-18 [facility] Work Phone: Thin prep Papanicolaou smear with manual screeningon 10-28-2021 Thin prep Papanicolaou smear with manual screening 8 5-15 [facility] Work Phone: Whole blood hemoglobin A1c/t otal hemoglobin ratio (mass fraction)on 10-28-2021 HbA1c (Bld) [Mass fraction] 7.7 % 3.8-5.6 [facility] Work Phone: Comment on above: Normal < 5.7 % Predi abetic 5.7 - 6.4 % Diabetic >or= 6.5 % Please note range changes. Absolute lymphocyte counton 09-16-2021 Lymphocytes Auto (Unsp spec) [#/Vol] 1.24 10*3/uL 0.83-4.51 [facility] Work Phone: Basophil percentageon 2021 Basophils/100 WBC (Bld) 0.5 % 0-1 [facility] Work Phone: Chloride [Moles/Vol] 107 mmol/L 98-107 [facility] Work Phone: Eosinophils/100 WBC (Bld) 1.7 % 0-5 [facility] Work Phone: Glucose [Mass/Vol] 134 mg/dL 74-106 [facility] Work Phone: Comment on above: Fasting Glucose resu lt greater than or equal to 126 mg/dL suggests DIABETES MELLITUS per A.D.A. criteria. Neutrophils (Bld) [#/Vol] 4.4 10*3/uL 2.0-7.7 [facility] Work Phone: Neutrophils/100 WBC (Bld) 68.0 % 47-70 [facility] Work Phone: Potassium [Moles/Vol] 4.3 mmol/L 3.5-5.1 [facility] Work Phone: Sodium [Moles/Vol] 139 mmol/L 136-145 [facility] Work Phone: WBC (Bld) [#/Vol] 6.4 10*3/uL 4.4-11.0 [facility] Work Phone: Blood erythrocytes count (nu mber/volume)on 09-16-2021 RBC (Bld) [#/Vol] 4.84 10*6/uL 4.6-6.2 [facility] Work Phone: Blood hemoglobin measurement (mass/volume)on 09-16-2021 Hemoglobin (Bld) [Mass/Vol] 14.1 g/dL 13.0-16.5 [facility] Work Phone: Blood lymphocytes/100 leukoc yteson 09-16-2021 Lymphocytes/100 WBC (Bld) 19.3 % 19-41 [facility] Work Phone: Blood monocytes/100 leukocyt eson 09-16-2021 Monocytes/100 WBC (Bld) 10.0 % 0-10 [facility] Work Phone: Blood platelet mean volumeon 09-16-2021 Platelet mean volume (Bld) [Entitic vol] 12.7 fL 6.2-12.0 [facility] Work Phone: Determination of erythrocyte mean corpuscular volume (MCV)on 09-16-2021 MCV (RBC) [Entitic vol] 90.1 fL 80-94 [facility] Work Phone: Hematocrit Auto (Bld) [Volum e fraction]on 09-16-2021 Hematocrit (Bld) [Volume fraction] 43.6 % 40-54 [facility] Work Phone: Laboratory - Chemistry and C hemistry - challengeon 09-16-2021 CO2 [Moles/Vol] 27.0 mmol/L 21.0-32.0 [facility] Work Phone: Natriuretic peptide B (Bld) [Mass/Vol] 80.9 pg/mL 0-100 [facility] Work Phone: Urea nitrogen/Creatinine [Mass ratio] 13.7 mg/mg 10-20 [facility] Work Phone: Laboratory - Hematology and Cell countson 09-16-2021 Erythrocyte distribution width (RBC) [Entitic vol] 46.2 fL 35.1-43.9 [facility] Work Phone: Erythrocyte distribution width (RBC) [Ratio] 13.9 % 11.6-14.6 [facility] Work Phone: Immature granulocytes/100 WBC (Bld) 0.500 % 0.0-0.9 [facility] Work Phone: Comment on above: IG% - Immature Granu locytes (promyelocytes, myelocytes and metamyelocytes) > 1% indicates that a LEFT SHIFT is Present. MCH (RBC) [Entitic mass] 29.1 pg 27.0-32.0 [facility] Work Phone: Nucleated RBC/100 WBC (Bld) [Ratio] 0 % 0-5 [facility] Work Phone: MCHC Auto (RBC) [Mass/Vol]on 09-16-2021 MCHC (RBC) [Mass/Vol] 32.3 g/dL 32-36 [facility] Work Phone: No Panel Informationon 09-16 Estimated GFR (MDRD) Amer 73 mL/min >60 [facility] Work Phone: Comment on above: GFR Calc Estimated GFR (MDRD) Non-Af Amer 60 mL/min >60 [facility] Work Phone: Comment on above: Non- GFR Calc Platelets bldon 09-16-2021 Platelets (Bld) [#/Vol] 133 10*3/uL 150-450 [facility] Work Phone: Serum or plasma calcium francine urement (mass/volume)on 09-16-2021 Calcium [Mass/Vol] 9.0 mg/dL 8.5-10.1 [facility] Work Phone: Serum or plasma creatinine m easurement (mass/volume)on 09-16-2021 Creatinine [Mass/Vol] 1.24 mg/dL 0.70-1.30 [facility] Work Phone: Comment on above: The validity of the calculated GFR & GFRAA in patients over 70 years has not been determined. Clinical correlation is essential. Serum or plasma urea nitroge n measurement (mass/volume)on 09-16-2021 Urea nitrogen [Mass/Vol] 17 mg/dL 7-18 [facility] Work Phone: Thin prep Papanicolaou smear with manual screeningon 09-16-2021 Thin prep Papanicolaou smear with manual screening 5 5-15 [facility] Work Phone: Absolute lymphocyte counton 06-10-2021 Lymphocytes Auto (Unsp spec) [#/Vol] 1.00 10*3/uL 0.83-4.51 [facility] Work Phone: Basophil percentageon 2021 Basophils/100 WBC (Bld) 0.3 % 0-1 [facility] Work Phone: Chloride [Moles/Vol] 107 mmol/L 98-107 [facility] Work Phone: Eosinophils/100 WBC (Bld) 1.7 % 0-5 [facility] Work Phone: [phone] Glucose [Mass/Vol] 150 mg/dL 74-106 [facility] Work Phone: [phone] Comment on above: Fasting Glucose resu lt greater than or equal to 126 mg/dL suggests DIABETES MELLITUS per A.D.A. criteria. Neutrophils (Bld) [#/Vol] 4.9 10*3/uL 2.0-7.7 [facility] Work Phone: Neutrophils/100 WBC (Bld) 73.8 % 47-70 [facility] Work Phone: [phone] Potassium [Moles/Vol] 5.6 mmol/L 3.5-5.1 [facility] Work Phone: Comment on above: Moderate Hemolysis, Result may be falsely increased. Sodium [Moles/Vol] 139 mmol/L 136-145 [facility] Work Phone: WBC (Bld) [#/Vol] 6.7 10*3/uL 4.4-11.0 [facility] Work Phone: Blood erythrocytes count (nu mber/volume)on 06-10-2021 RBC (Bld) [#/Vol] 5.17 10*6/uL 4.6-6.2 [facility] Work Phone: Blood hemoglobin measurement (mass/volume)on 06-10-2021 Hemoglobin (Bld) [Mass/Vol] 15.5 g/dL 13.0-16.5 [facility] Work Phone: Blood lymphocytes/100 leukoc yteson 06-10-2021 Lymphocytes/100 WBC (Bld) 15.0 % 19-41 [facility] Work Phone: Blood monocytes/100 leukocyt eson 06-10-2021 Monocytes/100 WBC (Bld) 8.7 % 0-10 [facility] Work Phone: Blood platelet mean volumeon 06-10-2021 Platelet mean volume (Bld) [Entitic vol] 12.7 fL 6.2-12.0 [facility] Work Phone: Determination of erythrocyte mean corpuscular volume (MCV)on 06-10-2021 MCV (RBC) [Entitic vol] 89.6 fL 80-94 [facility] Work Phone: Hematocrit Auto (Bld) [Volum e fraction]on 06-10-2021 Hematocrit (Bld) [Volume fraction] 46.3 % 40-54 [facility] Work Phone: Laboratory - Chemistry and C hemistry - challengeon 06-10-2021 CO2 [Moles/Vol] 28.0 mmol/L 21.0-32.0 [facility] Work Phone: Urea nitrogen/Creatinine [Mass ratio] 12.7 mg/mg 10-20 [facility] Work Phone: Laboratory - Hematology and Cell countson 06-10-2021 Erythrocyte distribution width (RBC) [Entitic vol] 45.9 fL 35.1-43.9 [facility] Work Phone: Erythrocyte distribution width (RBC) [Ratio] 14.1 % 11.6-14.6 [facility] Work Phone: Immature granulocytes/100 WBC (Bld) 0.500 % 0.0-0.9 [facility] Work Phone: Comment on above: IG% - Immature Granu locytes (promyelocytes, myelocytes and metamyelocytes) > 1% indicates that a LEFT SHIFT is Present. MCH (RBC) [Entitic mass] 30.0 pg 27.0-32.0 [facility] Work Phone: Nucleated RBC/100 WBC (Bld) [Ratio] 0 % 0-5 [facility] Work Phone: MCHC Auto (RBC) [Mass/Vol]on 06-10-2021 MCHC (RBC) [Mass/Vol] 33.5 g/dL 32-36 [facility] Work Phone: No Panel Informationon 06-10 Troponin I High Sensitivity 10 pg/mL 3.0-78.0 [facility] Work Phone: Comment on above: Please Note: New Jana t Units and Gender Specific Reference Ranges. For more information see Policy Stat Procedure Ramey High Sensitivity Troponin (TNIH) and attachments. Estimated Creatinine Clearance Calc 47.63 ml/min [facility] Work Phone: Estimated GFR (MDRD) Amer 67 mL/min >60 [facility] Work Phone: Comment on above: GFR Calc Estimated GFR (MDRD) Non-Af Amer 55 mL/min >60 [facility] Work Phone: Comment on above: Non- GFR Calc Platelets bldon 06-10-2021 Platelets (Bld) [#/Vol] 146 10*3/uL 150-450 [facility] Work Phone: Serum or plasma calcium francine urement (mass/volume)on 06-10-2021 Calcium [Mass/Vol] 8.7 mg/dL 8.5-10.1 [facility] Work Phone: Serum or plasma creatinine m easurement (mass/volume)on 06-10-2021 Creatinine [Mass/Vol] 1.34 mg/dL 0.70-1.30 [facility] Work Phone: Comment on above: The validity of the calculated GFR & GFRAA in patients over 70 years has not been determined. Clinical correlation is essential. Serum or plasma urea nitroge n measurement (mass/volume)on 06-10-2021 Urea nitrogen [Mass/Vol] 17 mg/dL 7-18 [facility] Work Phone: Thin prep Papanicolaou smear with manual screeningon 06-10-2021 Thin prep Papanicolaou smear with manual screening 4 5-15 [facility] Work Phone: Absolute lymphocyte counton 05-19-2021 Lymphocytes Auto (Unsp spec) [#/Vol] 1.72 10*3/uL 0.83-4.51 [facility] Work Phone: Basophil percentageon 2021 Basophils/100 WBC (Bld) 0.4 % 0-1 [facility] Work Phone: Bilirubin [Mass/Vol] 1.20 mg/dL 0.20-1.00 [facility] Work Phone: Comment on above: For patients on eltr ombopag therapy, use of Dimension Ramey TBIL is not recommended. Chloride [Moles/Vol] 106 mmol/L 98-107 [facility] Work Phone: Eosinophils/100 WBC (Bld) 1.2 % 0-5 [facility] Work Phone: [phone] Glucose [Mass/Vol] 182 mg/dL 74-106 [facility] Work Phone: Comment on above: Fasting Glucose resu lt greater than or equal to 126 mg/dL suggests DIABETES MELLITUS per A.D.A. criteria. Neutrophils (Bld) [#/Vol] 6.6 10*3/uL 2.0-7.7 [facility] Work Phone: Neutrophils/100 WBC (Bld) 70.5 % 47-70 [facility] Work Phone: [phone] Potassium [Moles/Vol] 3.8 mmol/L 3.5-5.1 [facility] Work Phone: Protein [Mass/Vol] 7.9 g/dL 6.4-8.2 [facility] Work Phone: Sodium [Moles/Vol] 139 mmol/L 136-145 [facility] Work Phone: WBC (Bld) [#/Vol] 9.4 10*3/uL 4.4-11.0 [facility] Work Phone: Basophil percentage 0 SEEN /hpf [facility] Work Phone: Bilirubin Test strip Ql (U)o n 05-19-2021 Bilirubin Ql (U) Negative Negative [facility] Work Phone: Blood erythrocytes count (nu mber/volume)on 05-19-2021 RBC (Bld) [#/Vol] 5.30 10*6/uL 4.6-6.2 [facility] Work Phone: Blood hemoglobin measurement (mass/volume)on 05-19-2021 Hemoglobin (Bld) [Mass/Vol] 15.3 g/dL 13.0-16.5 [facility] Work Phone: Blood lymphocytes/100 leukoc yteson 05-19-2021 Lymphocytes/100 WBC (Bld) 18.3 % 19-41 [facility] Work Phone: Blood monocytes/100 leukocyt eson 05-19-2021 Monocytes/100 WBC (Bld) 9.3 % 0-10 [facility] Work Phone: Blood platelet mean volumeon 05-19-2021 Platelet mean volume (Bld) [Entitic vol] 12.5 fL 6.2-12.0 [facility] Work Phone: Determination of erythrocyte mean corpuscular volume (MCV)on 05-19-2021 MCV (RBC) [Entitic vol] 89.8 fL 80-94 [facility] Work Phone: Hematocrit Auto (Bld) [Volum e fraction]on 05-19-2021 Hematocrit (Bld) [Volume fraction] 47.6 % 40-54 [facility] Work Phone: Ketones Test strip Ql (U)on 05-19-2021 Ketones Ql (U) Negative Negative [facility] Work Phone: Laboratory - Chemistry and C hemistry - challengeon 05-19-2021 ALP [Catalytic activity/Vol] 156 U/L 45-117 [facility] Work Phone: ALT [Catalytic activity/Vol] 44 U/L 16-61 [facility] Work Phone: CO2 [Moles/Vol] 26.0 mmol/L 21.0-32.0 [facility] Work Phone: Globulin (S) [Mass/Vol] 4.2 g/dL 2.2-4.2 [facility] Work Phone: Lipase [Catalytic activity/Vol] 199 U/L 73-393 [facility] Work Phone: Urea nitrogen/Creatinine [Mass ratio] 13.8 mg/mg 10-20 [facility] Work Phone: Laboratory - Hematology and Cell countson 05-19-2021 Erythrocyte distribution width (RBC) [Entitic vol] 46.7 fL 35.1-43.9 [facility] Work Phone: Erythrocyte distribution width (RBC) [Ratio] 14.3 % 11.6-14.6 [facility] Work Phone: Immature granulocytes/100 WBC (Bld) 0.300 % 0.0-0.9 [facility] Work Phone: Comment on above: IG% - Immature Granu locytes (promyelocytes, myelocytes and metamyelocytes) > 1% indicates that a LEFT SHIFT is Present. MCH (RBC) [Entitic mass] 28.9 pg 27.0-32.0 [facility] Work Phone: Nucleated RBC/100 WBC (Bld) [Ratio] 0 % 0-5 [facility] Work Phone: MCHC Auto (RBC) [Mass/Vol]on 05-19-2021 MCHC (RBC) [Mass/Vol] 32.1 g/dL 32-36 [facility] Work Phone: Mucus LM Ql (Urine sed)on Mucus Ql (Urine sed) 0 SEEN /hpf [facility] Work Phone: Nitrite Test strip Ql (U)on 05-19-2021 Nitrite Ql (U) Negative Negative [facility] Work Phone: No Panel Informationon 05-19 Estimated Creatinine Clearance Calc 46.25 ml/min [facility] Work Phone: Estimated GFR (MDRD) Amer 65 mL/min >60 [facility] Work Phone: Comment on above: GFR Calc Estimated GFR (MDRD) Non-Af Amer 53 mL/min >60 [facility] Work Phone: Comment on above: Non- GFR Calc Platelets bldon 05-19-2021 Platelets (Bld) [#/Vol] 158 10*3/uL 150-450 [facility] Work Phone: Protein Test strip Ql (U)on 05-19-2021 Protein Ql (U) Negative Negative [facility] Work Phone: Serum or plasma albumin francine urement (mass/volume)on 05-19-2021 Albumin [Mass/Vol] 3.7 g/dL 3.2-5.0 [facility] Work Phone: Serum or plasma albumin/glob ulin mass ratioon 05-19-2021 Albumin/Globulin [Mass ratio] 0.9 {ratio} 0.9-2.4 [facility] Work Phone: Serum or plasma calcium francine urement (mass/volume)on 05-19-2021 Calcium [Mass/Vol] 9.2 mg/dL 8.5-10.1 [facility] Work Phone: Serum or plasma creatinine m easurement (mass/volume)on 05-19-2021 Creatinine [Mass/Vol] 1.38 mg/dL 0.70-1.30 [facility] Work Phone: Comment on above: The validity of the calculated GFR & GFRAA in patients over 70 years has not been determined. Clinical correlation is essential. Serum or plasma urea nitroge n measurement (mass/volume)on 05-19-2021 Urea nitrogen [Mass/Vol] 19 mg/dL 11-17 [facility] Work Phone: Squamous epithelial cells de tection in urine sediment by light microscopyon 05-19-2021 Epithelial cells.squamous LM Ql (Urine sed) 0 SEEN /hpf [facility] Work Phone: Thin prep Papanicolaou smear with manual screeningon 05-19-2021 Thin prep Papanicolaou smear with manual screening 25 U/L 15-37 [facility] Work Phone: Thin prep Papanicolaou smear with manual screening 7 5-15 [facility] Work Phone: Urine blood detectionon 05-03 RBC Ql (U) Negative Negative [facility] Work Phone: RBC Ql (U) 0 SEEN /hpf [facility] Work Phone: Urine clarityon 05-19-2021 Clarity (U) Clear Clear [facility] Work Phone: Urine color determinationon 05-19-2021 Color (U) Straw Yellow [facility] Work Phone: Urine glucose detectionon Glucose Ql (U) Normal mg/dl Normal [facility] Work Phone: Urine leukocyte esterase det ection by dipstickon 05-19-2021 Leukocyte esterase Test strip Ql (U) Negative Negative [facility] Work Phone: Urine pHon 05-19-2021 pH (U) 5.0 [pH] [facility] Work Phone: Urine sediment bacteria coun t by microscopy (number/high power field)on 05-19-2021 Bacteria LM.HPF (Urine sed) [#/Area] 0 /[HPF] None Seen [facility] Work Phone: Urine specific gravity measu rementon 05-19-2021 Specific gravity (U) [Rel density] 1.010 [facility] Work Phone: Urobilinogen Auto test strip Ql (U)on 05-19-2021 Urobilinogen Ql (U) Normal mg/dl Normal [facility] Work Phone: CT ANGIOGRAM AORTA CHEST [...] descending thoracic aorta is tortuous within its [id number]-ug-[id number] course but is not aneurysmal. The abdominal [...] particularly at L4-L5 and L5-S1. IMAGING FACILITY: [facility]. SB/tde Workstation ID: [id number] Dictated by: YAS IYER on WedFeb 26, 2021 1:26:53 PM EDT Transcribed by: KEIKO CORLEY on WedFeb 26, 2021 1:43:47 PM EDT Finalized by: YAS IYER on Christine Feb 27, 2021 7:40:59 AM EDT [facility] Comment on above: Order Comment: Injur y/Trauma or Illness?:Illness/Other How long have you had these symptoms (acute/chronic)?:Acute Reason for exam?:Coronary artery disease involving [place] coronary artery of [place] heart with angina pectoris, recent heart cath Type of Exam?:Subsequent/Follow-up Additional signs and symptoms?: LEFT HEART CATH POSSIBLE PTC A/STENTon 01-10-2021 LEFT HEART CATH POSSIBLE PTCA/STENT Patient Name: ERIBERTO RICO Date of : 1945 Procedure Date: 01/10/2021 Cath #: [id number] Physician(s): Eladio Ingram MD Ref. Physician: PROCEDURE(S) PERFORMED: Clinical History: Prior smoker, quit date: Diabetes Mellitus: Yes Hypertension: Yes Dyslipidemia: Yes Prior NC: Yes Other: Stroke Prior PCI: Yes 2016 [...] right femoral artery - 6F. 10 cm [place] Catheters were advanced using standard guide wire [...] Equipment: Sheath(s) [employer] 4F MICROPUNCTURE KIT [employer] 6F 10CM [place] SHEATH Wire(s) [employer] J WIRE FIXED MERIT .035 X 150CM GUIDEWIRE Catheter(s) [employer] JR4 DIAG CATH 6F [employer] JR4 DIAG CATH 6F [employer] PIGTAIL STRAIGHT DIAG CATH 6F See Nursing Notes for further details Signed By Eladio Ingram MD On 01/10/2021 11:05:05 Eladio Ingram MD _ _ [facility] ECHOCARDIOGRAM 2D COMPLETEOr dered By: Eladio Ingram on 10-15-2020 Aortic valve area 2.88224 cm [facility] AV mean gradient 6 mmHg [facility] EF 62.7797 % [facility] Patient Info Name: Morro RICO Age: 75 years : 1945 Gender: Male Ht: 175 cm Wt: 106 kg BSA: 2.31 m2 HR: 50 bpm BP: 134 / 72 mmHg Heart Rhythm: Bradycardia, Sinus Rhythm Technical Quality: Fair, Technically difficult Exam Date: 10/15/2020 12:57 PM Patient Status: Outpatient General Activities Therapist: Tracy Bonilla, RDCS, RVT Exam Type: ECHOCARDIOGRAM COMPLETE W CONTRAST Study Info Indications - Dyspnea Attending Physician: ELADIO INGRAM Referring Physician: ELADIO INGRAM ; [id number] BMI: 34.56 kg/m2 Summary 1. Left ventricular systolic function is normal, with ejection fraction estimated at 60 +/- 5%. 2. The left ventricular diastolic function is normal. 3. 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 4. There is no aortic valve stenosis. History/Risk Factors Hypertension: Yes Dyslipidemia: Yes Diabetic Therapy: Oral Peripheral Arterial Disease (PAD): Yes Myocardial Infarction (NC): Yes Coronary Artery Disease (CAD) Yes Congestive Heart Failure (CHF): Hx CHF Date of Prior NC: 05/03/2008 Diabetes Mellitus: Yes History/Risk Factors sleep [...] Velocity 1.09 m/s (more content not included)... [facility] Interface, Rad In He artlab Xper Ech[employer] - 10/15/2020 4:30 PM EDT Patient Info Name: ERIBERTO RICO Age: 75 years : 1945 Gender: Male Ht: 175 cm Wt: 106 kg BSA: 2.31 m2 HR: 50 bpm BP: 134 / 72 mmHg Heart Rhythm: Bradycardia, Sinus Rhythm Technical Quality: Fair, Technically difficult Exam Date: 10/15/2020 12:57 PM Patient Status: Outpatient General Activities Therapist: Tracy Bonilla, DRU, RVT Exam Type: ECHOCARDIOGRAM COMPLETE W CONTRAST Study Info Indications - Dyspnea Attending Physician: ELADIO INGRAM Referring Physician: ELADIO INGRAM ; [id number] BMI: 34.56 kg/m2 Summary 1. Left ventricular systolic function is normal, with ejection fraction estimated at 60 +/- 5%. 2. The left ventricular diastolic function is normal. 3. 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 4. There is no aortic valve stenosis. History/Risk Factors Hypertension: Yes Dyslipidemia: Yes Diabetic Therapy: Oral Peripheral Arterial Disease (PAD): Yes Myocardial Infarction (NC): Yes Coronary Artery Disease (CAD) Yes Congestive Heart Failure (CHF): Hx CHF Date of Prior NC: 05/03/2008 Diabetes Mellitus: Yes History/Risk Factors sleep [...] mmHg MV VTI [address] [facility] 333 cm/s2 MV PHT 38 ms MV Area (PHT) 5.8 cm2 4.0-5.0 MV Area (Cont Eq VTI) 2.5 cm2 MV Area Index (Cont Eq VTI) 1.06 cm2/m2 MV Di (more content not included)... [facility] ECHOCARDIOGRAM COMPLETE W CO NTRASTon 10-15-2020 ECHOCARDIOGRAM COMPLETE W CONTRAST Patient Info Name: ERIBERTO RICO Age: 75 years : 1945 Gender: Male Ht: 175 cm Wt: 106 kg BSA: 2.31 m2 HR: 50 bpm BP: 134 / 72 mmHg Heart Rhythm: Bradycardia, Sinus Rhythm Technical Quality: Fair, Technically difficult Exam Date: 10/15/2020 12:57 PM Patient Status: Outpatient General Activities Therapist: Tracy Bonilla RDCS, T Exam Type: ECHOCARDIOGRAM COMPLETE W CONTRAST Study Info Indications - Dyspnea Attending Physician: ELADIO INGRAM Referring Physician: ELADIO INGRMA ; [id number] BMI: 34.56 kg/m2 Summary 1. Left ventricular systolic function is normal, with ejection fraction estimated at 60 +/- 5%. 2. The left ventricular diastolic function is normal. 3. 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 4. There is no aortic valve stenosis. History/Risk Factors Hypertension: Yes Dyslipidemia: Yes Diabetic Therapy: Oral Peripheral Arterial Disease (PAD): Yes Myocardial Infarction (NC): Yes Coronary Artery Disease (CAD) Yes Congestive Heart Failure (CHF): Hx CHF Date of Prior NC: 05/03/2008 Diabetes Mellitus: Yes History/Risk Factors sleep [...] mmHg MV VTI [address] 333 cm/s2 MV PHT 38 ms MV Area (PHT) 5.8 cm2 4.0-5.0 MV Area (Cont Eq VTI) 2.5 cm2 MV Area Index (Cont Eq VTI) 1.06 cm2/m2 MV Diastolic Function MV E Peak Velocity 1 m/s MV A Peak Velocity 1 m/s MV E/A 1.2 MV (more content not included)... Normal [facility] Ambulatory ECG 12-LEADOrdered By: Fernanda Acuña on 10-09-2020 Atrial Rate [facility] P [place] [facility] P-R Interval [facility] Q-T Interval [facility] Q-T Interval (corrected) [facility] QRS Duration [facility] QTC Calculation (Bezet) [facility] R [place] [facility] T [place] [facility] 09-15-2018 Basophils #/vol (Bld) 0.0 E3/mcL Normal 0.0-0.2 [facility] Comment on above: Order Comment: Order Added by Discern Expert. Performed By: #### 2 [id number] #### [employer] [address] [place] [address] 45792 Basophils/100 WBC (Bld) 0.6 % Normal 0.0-2.0 [facility] Comment on above: Order Comment: Order Added by Discern Expert. Performed By: #### 2 [id number] #### [employer] [address] [place] [address] 76577 Eos Absolute 0.1 E3/mcL Normal 0.0-0.7 [facility] Comment on above: Order Comment: Order Added by Discern Expert. Performed By: #### 2 [id number] #### [employer] [address] [place] [address] 49232 Eosinophils/100 WBC (Bld) 2.2 % Normal 0.0-11.0 [facility] Comment on above: Order Comment: Order Added by Discern Expert. Performed By: #### 2 [id number] #### [employer] [address] [place] [address] 98849 Lymphocytes #/vol (Bld) 1.9 E3/mcL Normal 1.2-3.4 [facility] Comment on above: Order Comment: Order Added by Discern Expert. Performed By: #### 2 [id number] #### [employer] [address] [place] [address] 71151 Lymphocytes/100 WBC (Bld) 31.0 % Normal 20.0-55.0 [facility] Comment on above: Order Comment: Order Added by Discern Expert. Performed By: #### 2 [id number] #### [employer] [address] [place] [address] 24798 [place] Absolute 0.8 E3/mcL High 0.0-0.7 [facility] Comment on above: Order Comment: Order Added by Discern Expert. Performed By: #### 2 [id number] #### [employer] [address] [place] [address] 46097 Monocytes/100 WBC (Bld) 13.2 % High 0.0-10.0 [facility] Comment on above: Order Comment: Order Added by Discern Expert. Performed By: #### 2 [id number] #### [employer] [address] [place] [address] 63871 Neutro Absolute 3.3 E3/mcL Normal 1.4-6.5 [facility] Comment on above: Order Comment: Order Added by Discern Expert. Performed By: #### 2 [id number] #### [employer] [address] [place], [place] [phone] Neutro Auto 53.0 % Normal 37.0-75.0 [facility] Comment on above: Order Comment: Order Added by Discern Expert. Performed By: #### 2 788356 #### [employer] [address] [place], [place] [phone] BMPon 09-15-2018 Anion gap molar conc 10 mmol/L Normal 10-20 [facility] Comment on above: Performed By: #### 2 147554 #### [employer] [facility] [facility] [place] [address] Calcium mass conc 8.4 mg/dL Low 8.6-10.3 [facility] Comment on above: Performed By: #### 2 615572 #### [employer] [address] [place] [id number] Chloride molar conc 105 mmol/L Normal 98-107 [facility] Comment on above: Performed By: #### 2 654072 #### [employer] [address] [place] [address] CO2 molar conc 26.0 mmol/L Normal 21.0-32.0 [facility] Comment on above: Performed By: #### 2 858077 #### [employer] [address] [place] [address] Creatinine mass conc 1.1 mg/dL Normal 0.5-1.3 [facility] Comment on above: Performed By: #### 2 616418 #### [employer] [address] [place] [address] Glucose mass conc 136 mg/dL High 70-99 [facility] Comment on above: Performed By: #### 2 210223 #### [employer] [address] [place] [address] Potassium molar conc 4.1 mmol/L Normal 3.5-5.3 [facility] Comment on above: Performed By: #### 2 048361 #### [employer] [address] [place] [address] Sodium molar conc 137 mmol/L Normal 136-145 [facility] Comment on above: Performed By: #### 2 018654 #### [employer] [facility] [place] [address] Urea nitrogen mass conc 19 mg/dL Normal 6-23 [facility] Comment on above: Performed By: #### 2 786223 #### [employer] [facility] [place] [phone] Urea nitrogen/Creatinine mass ratio 17.3 ratio Normal 5.4-30.0 [facility] Comment on above: Performed By: #### 2 [id number] #### [employer] [address] [place], [place] [address] CBC w/ Auto Diffon Erythrocyte distribution width Ratio (RBC) 14.9 % High 11.5-14.5 [facility] Comment on above: Performed By: #### 2 422791 #### [employer] [address] [place] [address] Hematocrit Volume Fraction (Bld) 41.5 % Low 42.0-52.0 [facility] Comment on above: Performed By: #### 2 348079 #### [employer] [address] [place], [place] [address] Hemoglobin mass conc (Bld) 13.6 g/dL Normal 13.5-18.0 [facility] Comment on above: Performed By: #### 2 151956 #### [employer] [address] [place] [address] 85212 MCH Entitic mass (RBC) 29.6 pg Normal 27.0-31.0 [facility] Comment on above: Performed By: #### 2 823488 #### [employer] [address] [place] [address] 68479 MCHC mass conc (RBC) 32.8 g/dL Low 33.0-37.0 [facility] Comment on above: Performed By: #### 2 284085 #### [employer] [address] [place], [place] [address] MCV Entitic volume (RBC) 90.4 fL Normal 78.0-100.0 [facility] Comment on above: Performed By: #### 2 889109 #### [employer] [address] [place], [place] [address] Platelet mean volume Entitic volume (Bld) 10.8 fL Normal 7.4-11.0 [facility] Comment on above: Performed By: #### 2 238461 #### [employer] [address] [place] [address] Platelets #/vol (Bld) 137 E3/mcL Normal 130-400 [facility] Comment on above: Performed By: #### 2 960158 #### [employer] [address] [place] [address] RBC #/vol (Bld) 4.59 E6/mcL Normal 3.90-6.10 [facility] Comment on above: Performed By: #### 2 165414 #### [employer] [address] [place] [address] WBC #/vol (Bld) 6.2 E3/mcL Normal 3.6-11.0 [facility] Comment on above: Performed By: #### 2 300647 #### [employer] [address] [place] [address] Glucose POCon 09-15-2018 Glucose mass conc 163 mg/dL High 70-99 [facility] Comment on above: Performed By: #### 2 580905 #### [employer] [address] [place] [address] Glucose mass conc 99 mg/dL Normal 70-99 [facility] Comment on above: Performed By: #### 2 936991 #### [employer] [address] [place] [address] Troponin-Ion 09-15-2018 Troponin I.cardiac mass conc 0.01 ng/mL Normal 0.00-0.03 [facility] Comment on above: Performed By: #### 2 435553 #### [employer] [address] [place], [place] [address] eGFRon 09-15-2018 GFR/1.73 sq M predicted among non-blacks MDRD vol rate/area (S/P/Bld) mL/min/{1.73_m2} Normal [facility] Comment on above: Order Comment: Order added by Discern Expert. Performed By: #### 2 847178 #### [employer] [address] [place] [address] Auto Diffon 09-14-2018 Basophils #/vol (Bld) 0.0 E3/mcL Normal 0.0-0.2 [facility] Comment on above: Order Comment: Order Added by Discern Expert. Performed By: #### 2 741753 #### [employer] [address] [place] [address] Basophils/100 WBC (Bld) 0.6 % Normal 0.0-2.0 [facility] Comment on above: Order Comment: Order Added by Kiana Expert. Performed By: #### 2 377364 #### [employer] [address] [place] [address] Eos Absolute 0.1 E3/mcL Normal 0.0-0.7 [facility] Comment on above: Order Comment: Order Added by Kiana Expert. Performed By: #### 2 082143 #### [employer] [address] [place] [address] Eosinophils/100 WBC (Bld) 1.7 % Normal 0.0-11.0 [facility] Comment on above: Order Comment: Order Added by Kiana Expert. Performed By: #### 2 307340 #### [employer] [address] [place] [address] Lymphocytes #/vol (Bld) 1.2 E3/mcL Normal 1.2-3.4 [facility] Comment on above: Order Comment: Order Added by Discern Expert. Performed By: #### 2 829480 #### [employer] [address] [place] [address] Lymphocytes/100 WBC (Bld) 16.5 % Low 20.0-55.0 [facility] Comment on above: Order Comment: Order Added by Kiana Expert. Performed By: #### 2 756247 #### [employer] [address] [place] [address] [place] Absolute 0.8 E3/mcL High 0.0-0.7 [facility] Comment on above: Order Comment: Order Added by Discern Expert. Performed By: #### 2 949854 #### [employer] [address] [place] [phone] Monocytes/100 WBC (Bld) 11.1 % High 0.0-10.0 [facility] Comment on above: Order Comment: Order Added by Discern Expert. Performed By: #### 2 264737 #### [employer] [address] [place], [place] [address] Neutro Absolute 5.1 E3/mcL Normal 1.4-6.5 [facility] Comment on above: Order Comment: Order Added by Discern Expert. Performed By: #### 2 339518 #### [employer] [address] [place] [address] Neutro Auto 70.1 % Normal 37.0-75.0 [facility] Comment on above: Order Comment: Order Added by Discern Expert. Performed By: #### 2 874009 #### [employer] [address] [place] [address] BMPon 09-14-2018 Anion gap molar conc 13 mmol/L Normal 10-20 [facility] Comment on above: Performed By: #### 2 572650 #### [facility] [employer] [address] [place] [address] Calcium mass conc 9.2 mg/dL Normal 8.6-10.3 [facility] Comment on above: Performed By: #### 2 589937 #### [facility] [employer] [address] [place] [address] 74270 Chloride molar conc 105 mmol/L Normal 98-107 [facility] Comment on above: Performed By: #### 2 912436 #### [facility] [employer] [address] [place] [address] 42041 CO2 molar conc 24.0 mmol/L Normal 21.0-32.0 [facility] Comment on above: Performed By: #### 2 668799 #### [facility] [employer] [address] [place] [address] Creatinine mass conc 1.2 mg/dL Normal 0.5-1.3 [facility] Comment on above: Performed By: #### 2 690464 #### [employer] [address] [place] [address] Glucose mass conc 129 mg/dL High 70-99 [facility] Comment on above: Performed By: #### 2 076857 #### [employer] [address] [place] [address] 13618 Potassium molar conc 3.9 mmol/L Normal 3.5-5.3 [facility] Comment on above: Performed By: #### 2 517390 #### [employer] [address] [place] [address] 89878 Sodium molar conc 138 mmol/L Normal 136-145 [facility] Comment on above: Performed By: #### 2 724622 #### [employer] [address] [place] [address] 27040 Urea nitrogen mass conc 19 mg/dL Normal 6-23 [facility] Comment on above: Performed By: #### 2 573810 #### [facility] [employer] [address] [place], [place] [address] Urea nitrogen/Creatinine mass ratio 15.8 ratio Normal 5.4-30.0 [facility] Comment on above: Performed By: #### 2 435581 #### [facility] [employer] [address] [place] [address] 28783 CBC w/ Auto Diffon 9 Erythrocyte distribution width Ratio (RBC) 15.2 % High 11.5-14.5 [facility] Comment on above: Performed By: #### 2 879320 #### [employer] [address] [place] [address] 78602 Hematocrit Volume Fraction (Bld) 45.0 % Normal 42.0-52.0 [facility] Comment on above: Performed By: #### 2 713390 #### [employer] [address] [place] [address] 79503 Hemoglobin mass conc (Bld) 15.0 g/dL Normal 13.5-18.0 [facility] Comment on above: Performed By: #### 2 360611 #### [employer] [address] [place] [address] 57368 MCH Entitic mass (RBC) 29.8 pg Normal 27.0-31.0 [facility] Comment on above: Performed By: #### 2 698878 #### [employer] [address] [place] [address] MCHC mass conc (RBC) 33.4 g/dL Normal 33.0-37.0 [facility] Comment on above: Performed By: #### 2 725727 #### [employer] [address] [place] [address] MCV Entitic volume (RBC) 89.4 fL Normal 78.0-100.0 [facility] Comment on above: Performed By: #### 2 396811 #### [employer] [address] [place] [address] Platelet mean volume Entitic volume (Bld) 10.8 fL Normal 7.4-11.0 [facility] Comment on above: Performed By: #### 2 800324 #### [employer] [address] [place] [address] Platelets #/vol (Bld) 158 E3/mcL Normal 130-400 [facility] Comment on above: Performed By: #### 2 460663 #### [employer] [address] [place] [address] RBC #/vol (Bld) 5.04 E6/mcL Normal 3.90-6.10 [facility] Comment on above: Performed By: #### 2 235766 #### [employer] [address] [place] [address] WBC #/vol (Bld) 7.2 E3/mcL Normal 3.6-11.0 [facility] Comment on above: Performed By: #### 2 097378 #### [employer] [address] [place] [address] CT Head or Brain w/o Contras ton 09-14-2018 CT Head or Brain w/o Contrast Exam Date/Time: 09/14/2018 15:21 EDT Reason for Exam: Injury Report STUDY: CT Head or Brain w/o Contrast; 09/14/2018 3:21 pm INDICATION: Injury. COMPARISON: 11/28/2016 ACCESSION NUMBER(S): [id number] ORDERING CLINICIAN: Kirsty Nguyen TECHNIQUE: Volume acquisition [...] Signed by: Radha Olivarez MD Technologist: IZAIAH [facility] CT Spine Cervical w/o Contra ston 09-14-2018 CT Spine Cervical w/o Contrast Exam Date/Time: 09/14/2018 15:22 EDT Reason for Exam: Trauma Report STUDY: CT Spine Cervical w/o Contrast; 09/14/2018 3:22 pm INDICATION: Trauma. COMPARISON: None. ACCESSION NUMBER(S): [id number] ORDERING CLINICIAN: Kirsty Nguyen TECHNIQUE: Axial CT [...] (Electronic Signature): 09/14/2018 3:28 pm Signed by: Juanis PALOMO, Radha Salvador Technologist: IZAIAH Normal [facility] Glucose POCon 09-14-2018 Glucose mass conc 132 mg/dL High 70-99 [facility] Comment on above: Performed By: #### 2 [id number] #### [employer] [address] [place] [address] [id number] 09-14-2018 Hemoglobin A1c/Hemoglobin.total mass fraction (Bld) 6.9 % High 4.0-6.3 [facility] Comment on above: Performed By: #### 2 582996 #### [employer] [address] [place] [address] Magnesiumon 09-14-2018 Magnesium mass conc 2.0 Int._Unit/L Normal 1.6-2.4 [facility] Comment on above: Performed By: #### 2 979559 #### [employer] [facility] [place] [id number] PTon 09-14-2018 INR Coag RelTime (PPP) 1.0 {INR} Normal 0.9-1.1 [facility] Comment on above: Result Comment: INR Recommended Therapeutic ranges: Prophylaxis/treatment of DVT and PE..........2.0-3.0 Prevention of systemic embolism.................2.0-3.0 Mechanical prosthetic values........................2.5-3.5 CRITICAL VALUE.........................................> 4.0 NOTE: New methodology started 05/16/2018 Performed By: #### 2 086733 #### [employer] [facility] [place] [address] Prothrombin time (PT) Coag time (PPP) 11.8 second(s) Normal 9.7-12.7 [facility] Comment on above: Result Comment: NOTE : New reference range established on 05/16/2018 due to change in methodology. Performed By: #### 2 197537 #### [employer] [facility] [place] [id number] PTTon 09-14-2018 aPTT Coag time (Bld) 32 second(s) Normal 28-38 [facility] Comment on above: Result Comment: NOTE :New reference range established 05/16/2018 due to change in methodology. Performed By: #### 2 729842 #### [employer] [facility] [place] [address] TSHon 09-14-2018 Thyrotropin Qn 5.25 mcIU/mL Normal 0.30-5.60 [facility] Comment on above: Performed By: #### 2 786469 #### [employer] [address] [place] [address] Troponin-Ion 09-14-2018 Troponin I.cardiac mass conc 0.02 ng/mL Normal 0.00-0.03 [facility] Comment on above: Performed By: #### 2 952851 #### [employer] [address] [place] [address] UA Completeon 09-14-2018 Color Nom (U) Straw Normal Yellow [facility] Comment on above: Performed By: #### 2 046722 #### [employer] [address] [place] [address] Glucose mass conc (U) Negative Normal Negative [facility] Comment on above: Performed By: #### 2 177094 #### [employer] [facility] [place] [address] Ketones Ql (U) Negative Normal Negative [facility] Comment on above: Performed By: #### 2 656291 #### [employer] [facility] [place] [address] UA Blood Negative Normal Negative [facility] Comment on above: Performed By: #### 2 767044 #### [employer] [facility] [place] [address] UA Clarity Clear Normal Clear [facility] Comment on above: Performed By: #### 2 256639 #### [employer] [facility] [place] [address] UA Hyal Cast 3-5 Abnormal 0-2 [facility] Comment on above: Performed By: #### 2 913630 #### [employer] [address] [place] [address] UA Leuk Est Negative Normal Negative [facility] Comment on above: Performed By: #### 2 927429 #### [employer] [address] [place] [address] UA Mucous Trace Abnormal Trace [facility] Comment on above: Performed By: #### 2 594030 #### [employer] [address] [place] [id number] UA Nitrite Negative Normal Negative [facility] Comment on above: Performed By: #### 2 605646 #### [employer] [address] [place] [address] UA pH 5.0 Normal 4.6-8.0 [facility] Comment on above: Performed By: #### 2 579404 #### [employer] [address] [place] [id number] UA Protein Negative Normal Negative [facility] Comment on above: Performed By: #### 2 618299 #### [employer] [address] [place] [address] UA Spec Grav 1.009 Normal 1.003-1.03 0 [facility] Comment on above: Performed By: #### 2 250686 #### [employer] [address] [place] [id number] UA Urobilinogen Negative Normal [facility] Comment on above: Result Comment: Due to a manufacturing issue, low positive urobilinogen results may be fasely positive. Correlate with urine bilirubin and additional clinical/laboratory findings to assess the risk of hemolytic anemia or liver disease. If clinically indicated, repeat testing with an alternate method is available by contacting the laboratory within 24 hours. Performed By: #### 2 [id number] #### [employer] [facility] [place] [id number] Urobilinogen Qn (U) Negative Normal Negative [facility] Comment on above: Performed By: #### 2 196926 #### [employer] [facility] [facility] [place] [id number] XR Chest AP Portableon 09-14 XR Chest AP Portable Exam Date/Time: 09/14/2018 15:43 EDT Reason for Exam: Chest pain Report STUDY: XR Chest AP Portable; 09/14/2018 3:43 pm INDICATION: Chest pain. COMPARISON: 12/25/2016 ACCESSION NUMBER(S): [id number] ORDERING CLINICIAN: Kirsty Nguyen FINDINGS: CARDIOMEDIASTINAL SILHOUETTE: [...] pm Signed by: Iva Vargas MD Technologist: [facility] XR Humerus Lefton 09-14-2018 XR Humerus Left Exam Date/Time: 09/14/2018 15:43 EDT Reason for Exam: Pain, Traumatic Report STUDY: XR Humerus Left; XR Shoulder Complete Left;; 09/14/2018 3:43 pm INDICATION: Pain, Traumatic. COMPARISON: None. ACCESSION NUMBER(S): [id number]; [id number] ORDERING CLINICIAN: Kirsty Nguyen FINDINGS: Five views [...] pm Signed by: Iva Vargas MD Technologist: [facility] XR Knee Complete Righton XR Knee Complete Right Exam Date/Time: 09/14/2018 15:43 EDT Reason for Exam: Pain, Traumatic Report STUDY: XR Knee Complete Right;; 09/14/2018 3:43 pm INDICATION: Pain, Traumatic. COMPARISON: None. ACCESSION NUMBER(S): [id number] ORDERING CLINICIAN: Kirsty Nguyen FINDINGS: Four views right knee: There is no fracture, dislocation or joint effusion. There is swelling anterior to the patella and infrapatellar tendon. IMPRESSION: No acute bony abnormality right knee, soft tissue swelling. FINAL REPORT Dictated: 09/14/2018 4:19 pm Iva Vargas MD Signed (Electronic Signature): 09/14/2018 4:19 pm Signed by: Iva Vargas MD Technologist: [facility] XR Shoulder Complete Lefton 09-14-2018 XR Shoulder Complete Left Exam Date/Time: 09/14/2018 15:43 EDT Reason for Exam: Pain, Traumatic Report STUDY: XR Humerus Left; XR Shoulder Complete Left;; 09/14/2018 3:43 pm INDICATION: Pain, Traumatic. COMPARISON: None. ACCESSION NUMBER(S): [id number]; [id number] ORDERING CLINICIAN: Kirsty Nguyen FINDINGS: Five views [...] pm Signed by: Iva Vargas MD Technologist: [facility] eGFRon 09-14-2018 GFR/1.73 sq M predicted among non-blacks MDRD vol rate/area (S/P/Bld) mL/min/{1.73_m2} Normal [facility] Comment on above: Order Comment: Order added by Discern Expert. Performed By: #### 1 [id number] #### [employer] [address] [place] [address] Vital Signs Date Time Vital Sign Value Performing Clinician Facility 12-02-2024 20:56-0400 Body temperature 98.8 [degF] Dr. Marycarmen Rodriguez DO Work Phone: [facility] 12-02-2024 20:56-0400 Diastolic blood pressure 78 mm[Hg] Dr. Marycarmen Rodriguez DO Work Phone: [facility] 12-02-2024 20:56-0400 Heart rate 77 /min Dr. Marycarmen Rodriguez DO Work Phone: [facility] 12-02-2024 20:56-0400 Respiratory rate 21 /min Dr. Marycarmen Rodriguez DO Work Phone: [facility] 12-02-2024 20:56-0400 SaO2% (BldA) [Mass fraction] 96 % Dr. Marycarmen Rodriguez DO Work Phone: [facility] 12-02-2024 20:56-0400 Systolic blood pressure 114 mm[Hg] Dr. Marycarmen Rodriguez DO Work Phone: [facility] 12-02-2024 20:21-0400 Inhaled oxygen flow rate 3 L/min Dr. Marycarmen Rodriguez DO Work Phone: [facility] 12-02-2024 20:16-0400 Body height 175.[address] Marycarmen Rodriguez DO Work Phone: [facility] 12-02-2024 20:16-0400 Body mass index (BMI) [Ratio] 35.9 kg/m2 Dr. Marycarmen Rodriguez DO Work Phone: [facility] 12-02-2024 20:16-0400 Body weight 110.[address] Marycarmen Rodriguez DO Work Phone: [facility] 12-02-2024 14:08-0400 Body temperature 98.8 [degF] Dr. Marycarmen Rodriguez DO Work Phone: [facility] 12-02-2024 14:08-0400 Diastolic blood pressure 72 mm[Hg] Dr. Marycarmen Rodriguez DO Work Phone: [facility] 12-02-2024 14:08-0400 Heart rate 78 /min Dr. Marycarmen Rodriguez DO Work Phone: [facility] 12-02-2024 14:08-0400 Respiratory rate 18 /min Dr. Marycarmen Rodriguez DO Work Phone: [facility] 12-02-2024 14:08-0400 SaO2% (BldA) [Mass fraction] 98 % Dr. Marycarmen Rodriguez DO Work Phone: [facility] 12-02-2024 14:08-0400 Systolic blood pressure 150 mm[Hg] Dr. Marycaremn Rodriguez DO Work Phone: [facility] 12-02-2024 14:01-0400 Inhaled oxygen flow rate 3 L/min Dr. Marycarmen Rodriguez DO Work Phone: [facility] 12-02-2024 08:32-0400 Body height 175.[address] Marycarmen Rodriguez DO Work Phone: [facility] 12-02-2024 08:32-0400 Body weight 109.[address] Marycarmen Rodriguez DO Work Phone: [facility] 12-02-2024 05:30-0400 Body mass index (BMI) [Ratio] 35.6 kg/m2 Dr. Marycarmen Rodriguez DO Work Phone: [facility] 11-30-2024 15:45-0400 Diastolic blood pressure 70 mm[Hg] Dr. Marycarmen Rodriguez DO Work Phone: [facility] 11-30-2024 15:45-0400 Systolic blood pressure 146 mm[Hg] Dr. Marycarmen Rodriguez DO Work Phone: [facility] 11-28-2024 09:15-0400 SaO2% (BldA) [Mass fraction] 94 % Dr. Marycarmen Rodriguez DO Work Phone: [facility] 11-28-2024 09:10-0400 Body temperature 97.5 [degF] Dr. Marycarmen Rodriguez DO Work Phone: [facility] 11-28-2024 09:10-0400 Diastolic blood pressure 64 mm[Hg] Dr. Marycarmen Rodriguez DO Work Phone: [facility] 11-28-2024 09:10-0400 Heart rate 86 /min Dr. Marycarmen Rodriguez DO Work Phone: [facility] 11-28-2024 09:10-0400 Respiratory rate 18 /min Dr. Marycarmen Rodriguez DO Work Phone: [facility] 11-28-2024 09:10-0400 Systolic blood pressure 129 mm[Hg] Dr. Marycarmen Rodriguez DO Work Phone: [facility] 11-28-2024 05:13-0400 Body mass index (BMI) [Ratio] 35.2 kg/m2 Dr. Marycarmen Rodriguez DO Work Phone: [facility] 11-28-2024 05:13-0400 Body weight 108.[address] Marycarmen Rodriguez DO Work Phone: [facility] 11-27-2024 15:54-0400 Body height 175.[address] Marycarmen Rodriguez DO Work Phone: [facility] 11-27-2024 15:54-0400 Body mass index (BMI) [Ratio] 35.4 kg/m2 Dr. Marycarmen Rodriguez DO Work Phone: [facility] 11-27-2024 15:54-0400 Body weight 108.[address] Marycarmen Rodriguez DO Work Phone: [facility] 11-27-2024 13:45-0400 Diastolic blood pressure 68 mm[Hg] Dr. Marycarmen Rodriguez DO Work Phone: [facility] 11-27-2024 13:45-0400 Heart rate 75 /min Dr. Marycarmen Rodriguez DO Work Phone: [facility] 11-27-2024 13:45-0400 Respiratory rate 21 /min Dr. Marycarmen Rodriguez DO Work Phone: [facility] 11-27-2024 13:45-0400 SaO2% (BldA) [Mass fraction] 95 % Dr. Marycarmen Rodriguez DO Work Phone: [facility] 11-27-2024 13:45-0400 Systolic blood pressure 115 mm[Hg] Dr. Marycarmen Rodriguez DO Work Phone: [facility] 11-26-2024 21:38-0400 Body temperature 98.1 [degF] Dr. Marycarmen Rodriguez DO Work Phone: [facility] 11-26-2024 21:38-0400 Diastolic blood pressure 68 mm[Hg] Dr. Marycarmen Rodriguez DO Work Phone: [facility] 11-26-2024 21:38-0400 Heart rate 68 /min Dr. Marycarmen Rodriguez DO Work Phone: [facility] 11-26-2024 21:38-0400 Respiratory rate 18 /min Dr. Marycarmen Rodriguez DO Work Phone: [facility] 11-26-2024 21:38-0400 SaO2% (BldA) [Mass fraction] 98 % Dr. Marycarmen Rodriguez DO Work Phone: [facility] 11-26-2024 21:38-0400 Systolic blood pressure 132 mm[Hg] Dr. Marycarmen Rodriguez DO Work Phone: [facility] 11-26-2024 18:03-0400 Inhaled oxygen flow rate 2 L/min Dr. Marycarmen Rodriguez DO Work Phone: [facility] 11-26-2024 17:37-0400 Body height 175.[address] Marycarmen Rodriguez DO Work Phone: [facility] 11-26-2024 17:37-0400 Body mass index (BMI) [Ratio] 37.3 kg/m2 Dr. Marycarmen Rodriguez DO Work Phone: [facility] 11-26-2024 17:37-0400 Body weight 114.[address] Marycarmen Rodriguez DO Work Phone: [facility] 11-22-2024 10:41-0400 Body mass index (BMI) [Ratio] 35.9 kg/m2 Dr. Marycarmen Rodriguez DO Work Phone: [facility] 11-22-2024 10:41-0400 Body weight 110.[address] Marycarmen Rodriguez DO Work Phone: [facility] 11-22-2024 10:41-0400 Diastolic blood pressure 62 mm[Hg] Dr. Marycarmen Rodriguez DO Work Phone: [facility] 11-22-2024 10:41-0400 Heart rate 66 /min Dr. Marycarmen Rodriguez DO Work Phone: [facility] 11-22-2024 10:41-0400 Respiratory rate 20 /min Dr. Marycarmen Rodriguez DO Work Phone: [facility] 11-22-2024 10:41-0400 Systolic blood pressure 107 mm[Hg] Dr. Marycarmen Rodriguez DO Work Phone: [facility] 10-31-2024 07:44-0400 Body mass index (BMI) [Ratio] 35.4 kg/m2 Dr. Marycarmen Rodriguez DO Work Phone: [facility] 10-31-2024 07:44-0400 Body temperature 97.1 [degF] Dr. Marycarmen Rodriguez DO Work Phone: [facility] 10-31-2024 07:44-0400 Body weight 108.[address] Marycarmen Rodriguez DO Work Phone: [facility] 10-31-2024 07:44-0400 Diastolic blood pressure 75 mm[Hg] Dr. Marycarmen Rodriguez DO Work Phone: [facility] 10-31-2024 07:44-0400 Heart rate 64 /min Dr. Marycarmen Rodriguez DO Work Phone: [facility] 10-31-2024 07:44-0400 Respiratory rate 20 /min Dr. Marycarmen Rodriguez DO Work Phone: [facility] 10-31-2024 07:44-0400 SaO2% (BldA) [Mass fraction] 97 % Dr. Marycarmen Rodriguez DO Work Phone: [facility] 10-31-2024 07:44-0400 Systolic blood pressure 135 mm[Hg] Dr. Marycarmen Rodriguez DO Work Phone: [facility] 10-25-2024 08:10-0400 Body height 175.[address] Marycarmen Rodriguez DO Work Phone: [facility] 10-25-2024 08:10-0400 Body mass index (BMI) [Ratio] 35.9 kg/m2 Dr. Marycarmen Rodriguez DO Work Phone: [facility] 10-25-2024 08:10-0400 Body weight 110.[address] Marycarmen Rodriguez DO Work Phone: [facility] 10-25-2024 08:10-0400 Diastolic blood pressure 85 mm[Hg] Dr. Marycarmen Rodriguez DO Work Phone: [facility] 10-25-2024 08:10-0400 Heart rate 85 /min Dr. Marycarmen Rodriguez DO Work Phone: [facility] 10-25-2024 08:10-0400 Respiratory rate 18 /min Dr. Marycarmen Rodriguez DO Work Phone: [facility] 10-25-2024 08:10-0400 Systolic blood pressure 121 mm[Hg] Dr. Marycarmen Rodriguez DO Work Phone: [facility] 09-20-2024 09:15-0400 Body height 175.[address] Marycarmen Rodriguez DO Work Phone: [facility] 09-20-2024 09:15-0400 Body mass index (BMI) [Ratio] 35.6 kg/m2 Dr. Marycarmen Rodriguez DO Work Phone: [facility] 09-20-2024 09:15-0400 Body temperature 96.8 [degF] Dr. Marycarmen Rodriguez DO Work Phone: [facility] 09-20-2024 09:15-0400 Body weight 109.[address] Marycarmen Rodriguez DO Work Phone: [facility] 09-20-2024 09:15-0400 Diastolic blood pressure 77 mm[Hg] Dr. Marycarmen Rodriguez DO Work Phone: [facility] 09-20-2024 09:15-0400 Heart rate 66 /min Dr. Marycarmen Rodriguez DO Work Phone: [facility] 09-20-2024 09:15-0400 Respiratory rate 18 /min Dr. Marycarmen Rodriguez DO Work Phone: [facility] 09-20-2024 09:15-0400 SaO2% (BldA) [Mass fraction] 97 % Dr. Marycarmen Rodriguez DO Work Phone: [facility] 09-20-2024 09:15-0400 Systolic blood pressure 121 mm[Hg] Dr. Marycarmen Rodriguez DO Work Phone: [facility] 07-18-2024 06:00-0400 Body height 175.[address] Marycarmen Rodriguez DO Work Phone: [facility] 07-18-2024 06:00-0400 Body weight 104.[address] Marycarmen Rodriguez DO Work Phone: [facility] 07-18-2024 06:00-0400 Heart rate 69 /min Dr. Marycarmen Rodriguez DO Work Phone: [facility] 07-18-2024 06:00-0400 SaO2% (BldA) [Mass fraction] 97 % Dr. Marycarmen Rodriguez DO Work Phone: [facility] 07-03-2024 08:35-0500 Body mass index (BMI) [Ratio] 36.6 kg/m2 Dr. Marycarmen Rodriguez DO Work Phone: [facility] 07-03-2024 08:35-0500 Body temperature 97.5 [degF] Dr. Marycarmen Rodriguez DO Work Phone: [facility] 07-03-2024 08:35-0500 Body weight 109.[address] Marycarmen Rodriguez DO Work Phone: [facility] 07-03-2024 08:35-0500 Diastolic blood pressure 77 mm[Hg] Dr. Marycarmen Rodriguez DO Work Phone: [facility] 07-03-2024 08:35-0500 Heart rate 72 /min Dr. Marycarmen Rodriguez DO Work Phone: [facility] 07-03-2024 08:35-0500 Respiratory rate 20 /min Dr. Marycarmen Rodriguez DO Work Phone: [facility] 07-03-2024 08:35-0500 SaO2% (BldA) [Mass fraction] 96 % Dr. Marycarmen Rodriguez DO Work Phone: [facility] 07-03-2024 08:35-0500 Systolic blood pressure 116 mm[Hg] Dr. Marycarmen Rodriguez DO Work Phone: [facility] 04-17-2024 15:55-0500 Body height [address] Marycarmen Rodriguez DO Work Phone: [facility] 04-17-2024 15:55-0500 Body mass index (BMI) [Ratio] 36.9 kg/m2 Dr. Marycarmen Rodriguez DO Work Phone: [facility] 04-17-2024 15:55-0500 Body weight 110.[address] Marycarmen Rodriguez DO Work Phone: [facility] 04-17-2024 15:55-0500 Diastolic blood pressure 53 mm[Hg] Dr. Marycarmen Rodriguez DO Work Phone: [facility] 04-17-2024 15:55-0500 Heart rate 70 /min Dr. Marycarmen Rodriguez DO Work Phone: [facility] 04-17-2024 15:55-0500 Respiratory rate 18 /min Dr. Marycarmen Rodriguez DO Work Phone: [facility] 04-17-2024 15:55-0500 SaO2% (BldA) [Mass fraction] 94 % Dr. Marycarmen Rodriguez DO Work Phone: [facility] 04-17-2024 15:55-0500 Systolic blood pressure 91 mm[Hg] Dr. Marycarmen Rodriguez DO Work Phone: [facility] 03-27-2024 10:17-0500 Diastolic blood pressure 79 mm[Hg] Dr. Marycarmen Rodriguez DO Work Phone: [facility] 03-27-2024 10:17-0500 Heart rate 67 /min Dr. Marycarmen Rodriguez DO Work Phone: [facility] 03-27-2024 10:17-0500 Respiratory rate 18 /min Dr. Marycarmen Rodriguez DO Work Phone: [facility] 03-27-2024 10:17-0500 Systolic blood pressure 134 mm[Hg] Dr. Marycarmen Rodriguez DO Work Phone: [facility] 03-20-2024 08:28-0500 Body mass index (BMI) [Ratio] 37.5 kg/m2 Dr. Marycarmen Rodriguez DO Work Phone: [facility] 03-20-2024 08:28-0500 Body weight 112.[address] Marycarmen Rodriguez DO Work Phone: [facility] 03-20-2024 08:28-0500 Diastolic blood pressure 89 mm[Hg] Dr. Marycarmen Rodriguez DO Work Phone: [facility] 03-20-2024 08:28-0500 Heart rate 61 /min Dr. Marycarmen Rodriguez DO Work Phone: [facility] 03-20-2024 08:28-0500 Respiratory rate 18 /min Dr. Marycarmen Rodriguez DO Work Phone: [facility] 03-20-2024 08:28-0500 Systolic blood pressure 141 mm[Hg] Dr. Marycarmen Rodriguez DO Work Phone: [facility] 12-21-2022 07:51-0400 Body height 172.[address] Marycarmen Rodriguez Work Phone: [facility] 12-21-2022 07:51-0400 Body weight 85.[address] Marycarmen Rodriguez Work Phone: [facility] 12-18-2022 08:27-0400 Body mass index (BMI) [Ratio] 28.7 kg/m2 Dr. Marycarmen Rodriguez Work Phone: [facility] 12-15-2022 13:03-0400 Body mass index (BMI) [Ratio] 28.7 kg/m2 Dr. Marycarmen Rodriguez Work Phone: [facility] 12-15-2022 13:03-0400 Body weight 85.[address] Marycarmen Rodriguez Work Phone: [facility] 12-15-2022 13:03-0400 Diastolic blood pressure 92 mm[Hg] Dr. Marycarmen Rodriguez Work Phone: [facility] 12-15-2022 13:03-0400 Heart rate 72 /min Dr. Marycarmen Rodriguez Work Phone: [facility] 12-15-2022 13:03-0400 Respiratory rate 16 /min Dr. Marycarmen Rodriguez Work Phone: [facility] 12-15-2022 13:03-0400 Systolic blood pressure 156 mm[Hg] Dr. Marycarmen Rodriguez Work Phone: [facility] 10-13-2022 10:59-0400 Body height 172.72 cm [facility] 10-13-2022 10:59-0400 Body mass index (BMI) [Ratio] 25.4 kg/m2 [facility] 10-13-2022 10:59-0400 Body weight 75.74 kg [facility] 10-13-2022 10:59-0400 Diastolic blood pressure 75 mm[Hg] [facility] 10-13-2022 10:59-0400 Heart rate 65 /min [facility] 10-13-2022 10:59-0400 Respiratory rate 18 /min [facility] 10-13-2022 10:59-0400 SaO2% (BldA) [Mass fraction] 94 % [facility] 10-13-2022 10:59-0400 Systolic blood pressure 143 mm[Hg] [facility] 09-21-2022 15:30-0400 Body mass index (BMI) [Ratio] 34.7 kg/m2 [facility] 09-21-2022 15:27-0400 Body temperature 98 [degF] [facility] 09-21-2022 15:27-0400 Diastolic blood pressure 84 mm[Hg] [facility] 09-21-2022 15:27-0400 Heart rate 79 /min [facility] 09-21-2022 15:27-0400 Respiratory rate 17 /min Marycarmen Jennifer [facility] 09-21-2022 15:27-0400 SaO2% (BldA) [Mass fraction] 96 % Marycarmen Jennifer [facility] 09-21-2022 15:27-0400 Systolic blood pressure 143 mm[Hg] Marycarmen Jennifer [facility] 09-21-2022 06:25-0400 Body weight 103.6 kg Marycarmen Jennifer [facility] 09-19-2022 01:30-0400 Inhaled oxygen concentration 21 % Marycarmen [facility] 09-01-2022 09:59-0400 Diastolic blood pressure 68 mm[Hg] Marycarmen [facility] 09-01-2022 09:59-0400 Heart rate 49 /min Marycarmen Jennifer [facility] 09-01-2022 09:59-0400 Systolic blood pressure 127 mm[Hg] Marycarmen [facility] 09-01-2022 09:57-0400 Body temperature 97.9 [degF] Marycarmen [facility] 09-01-2022 09:57-0400 Respiratory rate 18 /min Marycarmen [facility] 09-01-2022 09:57-0400 SaO2% (BldA) [Mass fraction] 93 % Marycarmen [facility] 09-01-2022 04:08-0400 Body mass index (BMI) [Ratio] 35.2 kg/m2 Marycarmen Jennifer [facility] 09-01-2022 04:08-0400 Body weight 108.2 kg Marycarmen Jennifer [facility] 08-31-2022 11:42-0400 Body height 175.26 cm Marycarmen Jennifer [facility] 08-19-2022 10:01-0400 Body height 175.26 cm Marycarmen Jennifer [facility] 08-19-2022 10:01-0400 Body mass index (BMI) [Ratio] 35.4 kg/m2 Marycarmen [facility] 08-19-2022 10:01-0400 Body weight 109.03 kg Marycarmen Rodriguez OLS [facility] 08-19-2022 10:01-0400 Diastolic blood pressure 79 mm[Hg] Marycarmen Jennifer BRYNN [facility] 08-19-2022 10:01-0400 Heart rate 62 /min Marycarmen Jennifer BRYNN [facility] 08-19-2022 10:01-0400 Respiratory rate 18 /min Marycarmen Jennifer BRYNN [facility] 08-19-2022 10:01-0400 Systolic blood pressure 144 mm[Hg] Marycarmen SWAIN [facility] 04-16-2022 12:43-0500 Body height 175.[address] Marycarmen Rodriguez Work Phone: [facility] 04-16-2022 12:43-0500 Body mass index (BMI) [Ratio] 35.2 kg/m2 Dr. Marycarmen Rodriguez Work Phone: [facility] 04-16-2022 12:43-0500 Body temperature 97 [degF] Dr. Marycarmen Rodriguez Work Phone: [facility] 04-16-2022 12:43-0500 Body weight 108.[address] Marycarmen Rodriguez Work Phone: [facility] 04-16-2022 12:43-0500 Diastolic blood pressure 78 mm[Hg] Dr. Marycarmen Rodriguez Work Phone: [facility] 04-16-2022 12:43-0500 Heart rate 66 /min Dr. Marycarmen Rodriguez Work Phone: [facility] 04-16-2022 12:43-0500 Respiratory rate 18 /min Dr. Marycarmen Rodriguez Work Phone: [facility] 04-16-2022 12:43-0500 SaO2% (BldA) [Mass fraction] 94 % Dr. Marycarmen Rodriguez Work Phone: [facility] 04-16-2022 12:43-0500 Systolic blood pressure 125 mm[Hg] Dr. Marycarmen Rodriguez Work Phone: [facility] 04-14-2022 10:27-0500 Body mass index (BMI) [Ratio] 35.2 kg/m2 Dr. Marycamren Rodriguez Work Phone: [facility] 04-14-2022 10:27-0500 Body weight 108.[address] Marycarmen Rodriguez Work Phone: [facility] 04-14-2022 10:27-0500 Diastolic blood pressure 68 mm[Hg] Dr. Marycarmen Rodriguez Work Phone: [facility] 04-14-2022 10:27-0500 Heart rate 64 /min Dr. Marycarmen Rodriguez Work Phone: [facility] 04-14-2022 10:27-0500 Respiratory rate 18 /min Dr. Marycarmen Rodriguez Work Phone: [facility] 04-14-2022 10:27-0500 Systolic blood pressure 130 mm[Hg] Dr. Marycarmen Rodriguez Work Phone: [facility] 03-27-2022 13:25-0500 Body temperature 97.9 [degF] Dr. Marycarmen Rodriguez Work Phone: [facility] 03-27-2022 13:25-0500 Diastolic blood pressure 86 mm[Hg] Dr. Marycarmen Rodriguez Work Phone: [facility] 03-27-2022 13:25-0500 Heart rate 86 /min Dr. Marycarmen Rodriguez Work Phone: [facility] 03-27-2022 13:25-0500 Respiratory rate 14 /min Dr. Marycarmen Rodriguez Work Phone: [facility] 03-27-2022 13:25-0500 SaO2% (BldA) [Mass fraction] 96 % Dr. Marycarmen Rodriguez Work Phone: [facility] 03-27-2022 13:25-0500 Systolic blood pressure 134 mm[Hg] Dr. Marycarmen Rodriguez Work Phone: [facility] 01-07-2022 11:07-0400 Body mass index (BMI) [Ratio] 34.9 kg/m2 Dr. Marycarmen Rodriguez Work Phone: [facility] Work Phone: 01-07-2022 11:07-0400 Body temperature 97.4 [degF] Dr. Marycarmen Rodriguez Work Phone: [facility] Work Phone: 01-07-2022 11:07-0400 Body weight 107.[address] Marycarmen Rodriguez Work Phone: [facility] Work Phone: 01-07-2022 11:07-0400 Diastolic blood pressure 87 mm[Hg] Dr. Marycarmen Rodriguez Work Phone: [facility] Work Phone: 01-07-2022 11:07-0400 Heart rate 60 /min Dr. Marycarmen Rodriguez Work Phone: [facility] Work Phone: 01-07-2022 11:07-0400 Respiratory rate 16 /min Dr. Marycarmen Rodriguez Work Phone: [facility] Work Phone: 01-07-2022 11:07-0400 SaO2% (BldA) [Mass fraction] 96 % Dr. Marycarmen Rodriguez Work Phone: [facility] Work Phone: 01-07-2022 11:07-0400 Systolic blood pressure 155 mm[Hg] Dr. Marycarmen Rodriguez Work Phone: [facility] Work Phone: 11-21-2021 10:24-0400 Body height 175.[address] Marycarmen Rodriguez Work Phone: [facility] Work Phone: 11-21-2021 10:24-0400 Body mass index (BMI) [Ratio] 34.9 kg/m2 Dr. Marycarmen Rodriguez Work Phone: [facility] Work Phone: 11-21-2021 10:24-0400 Body weight 107.[address] Marycarmen Rodriguez Work Phone: [facility] Work Phone: 11-21-2021 10:24-0400 Diastolic blood pressure 77 mm[Hg] Dr. Marycarmen Rodriguez Work Phone: [facility] Work Phone: 11-21-2021 10:24-0400 Heart rate 61 /min Dr. Marycarmen Rodriguez Work Phone: [facility] Work Phone: 11-21-2021 10:24-0400 Respiratory rate 18 /min Dr. Marycarmen Rodriguez Work Phone: [facility] Work Phone: 11-21-2021 10:24-0400 SaO2% (BldA) [Mass fraction] 97 % Dr. Marycarmen Rodriguez Work Phone: [facility] Work Phone: 11-21-2021 10:24-0400 Systolic blood pressure 138 mm[Hg] Dr. Marycarmen Rodriguez Work Phone: [facility] Work Phone: 11-16-2021 16:49-0400 Diastolic blood pressure 87 mm[Hg] Dr. Marycarmen Rodriguez Work Phone: [facility] Work Phone: 11-16-2021 16:49-0400 Heart rate 53 /min Dr. Marycarmen Rodriguez Work Phone: [facility] Work Phone: 11-16-2021 16:49-0400 Respiratory rate 16 /min Dr. Marycarmen Rodriguez Work Phone: [facility] Work Phone: 11-16-2021 16:49-0400 SaO2% (BldA) [Mass fraction] 93 % Dr. Marycarmen Rodriguez Work Phone: [facility] Work Phone: 11-16-2021 16:49-0400 Systolic blood pressure 117 mm[Hg] Dr. Marycarmen Rodriguez Work Phone: [facility] Work Phone: 11-16-2021 12:55-0400 Body mass index (BMI) [Ratio] 33.2 kg/m2 Dr. Marycarmen Rodriguez Work Phone: [facility] Work Phone: 11-16-2021 12:55-0400 Body temperature 97.6 [degF] Dr. Marycarmen Rodriguez Work Phone: [facility] Work Phone: 11-16-2021 12:55-0400 Body weight 102.[address] Marycarmen Rodriguez Work Phone: [facility] Work Phone: 09-16-2021 10:37-0400 Body height 175.[address] Marycarmen Rodriguez Work Phone: [facility] Work Phone: 09-16-2021 10:37-0400 Body mass index (BMI) [Ratio] 35.7 kg/m2 Dr. Marycarmen Rodriguez Work Phone: [facility] Work Phone: 09-16-2021 10:37-0400 Body weight 109.[address] Marycarmen Rodriguez Work Phone: [facility] Work Phone: 09-16-2021 10:37-0400 Diastolic blood pressure 69 mm[Hg] Dr. Marycarmen Rodriguez Work Phone: [facility] Work Phone: 09-16-2021 10:37-0400 Heart rate 50 /min Dr. Marycarmen Rodriguez Work Phone: [facility] Work Phone: 09-16-2021 10:37-0400 Respiratory rate 18 /min Dr. Marycarmen Rodriguez Work Phone: [facility] Work Phone: 09-16-2021 10:37-0400 Systolic blood pressure 122 mm[Hg] Dr. Marycarmen Rodriguez Work Phone: [facility] Work Phone: 08-01-2021 10:02-0400 Body mass index (BMI) [Ratio] 35.7 kg/m2 Dr. Marycarmen Rdoriguez Work Phone: [facility] Work Phone: 08-01-2021 10:02-0400 Body weight 109.[address] Marycarmen Rodriguez Work Phone: [facility] Work Phone: 08-01-2021 10:02-0400 Diastolic blood pressure 81 mm[Hg] Dr. Marycarmen Rodriguez Work Phone: [facility] Work Phone: 08-01-2021 10:02-0400 Heart rate 59 /min Dr. Marycarmen Rodriguez Work Phone: [facility] Work Phone: 08-01-2021 10:02-0400 Respiratory rate 18 /min Dr. Marycarmen Rodriguez Work Phone: [facility] Work Phone: 08-01-2021 10:02-0400 SaO2% (BldA) [Mass fraction] 97 % Dr. Marycarmen Rodriguez Work Phone: [facility] Work Phone: 08-01-2021 10:02-0400 Systolic blood pressure 133 mm[Hg] Dr. Marycarmen Rodriguez Work Phone: [facility] Work Phone: 08-01-2021 10:02-0400 Body height 175.[address] Marycarmen Rodriguez Work Phone: [facility] Work Phone: 08-01-2021 10:02-0400 Body mass index (BMI) [Ratio] 35.7 kg/m2 Dr. Marycarmen Rodriguez Work Phone: [facility] Work Phone: 08-01-2021 10:02-0400 Body weight 109.[address] Marycarmen Rodriguez Work Phone: [facility] Work Phone: 08-01-2021 10:02-0400 Diastolic blood pressure 81 mm[Hg] Dr. Marycarmen Rodriguez Work Phone: [facility] Work Phone: 08-01-2021 10:02-0400 Heart rate 59 /min Dr. Marycarmen Rodriguez Work Phone: [facility] Work Phone: 08-01-2021 10:02-0400 Respiratory rate 18 /min Dr. Marycarmen Rodriguez Work Phone: [facility] Work Phone: 08-01-2021 10:02-0400 SaO2% (BldA) [Mass fraction] 97 % Dr. Marycarmen Rodriguez Work Phone: [facility] Work Phone: 08-01-2021 10:02-0400 Systolic blood pressure 133 mm[Hg] Dr. Marycarmen Rordiguez Work Phone: [facility] Work Phone: 06-10-2021 18:38-0500 Diastolic blood pressure 75 mm[Hg] Dr. Marycarmen Rodriguez Work Phone: [facility] Work Phone: 06-10-2021 18:38-0500 Heart rate 57 /min Dr. Marycarmen Rodriguez Work Phone: [facility] Work Phone: 06-10-2021 18:38-0500 Respiratory rate 14 /min Dr. Marycarmen Rodriguez Work Phone: [facility] Work Phone: 06-10-2021 18:38-0500 SaO2% (BldA) [Mass fraction] 96 % Dr. Marycarmen Rodriguez Work Phone: [facility] Work Phone: 06-10-2021 18:38-0500 Systolic blood pressure 121 mm[Hg] Dr. Marycarmen Rodriguez Work Phone: [facility] Work Phone: 06-10-2021 13:36-0500 Body mass index (BMI) [Ratio] 34 kg/m2 Dr. Marycarmen Rodriguez Work Phone: [facility] Work Phone: 06-10-2021 13:36-0500 Body temperature 97 [degF] Dr. Marycarmen Rodriguez Work Phone: [facility] Work Phone: 06-10-2021 13:36-0500 Body weight 104.[address] Marycarmen Rodriguez Work Phone: [facility] Work Phone: 05-19-2021 16:55-0500 Respiratory rate 16 /min Dr. Marycarmen Rodriguez Work Phone: [facility] Work Phone: 05-19-2021 14:43-0500 Body temperature 96.5 [degF] Dr. Marycarmen Rodriguez Work Phone: [facility] Work Phone: 05-19-2021 14:43-0500 Diastolic blood pressure 94 mm[Hg] Dr. Marycarmen Rodriguez Work Phone: [facility] Work Phone: 05-19-2021 14:43-0500 Heart rate 63 /min Dr. Marycarmen Rodriguez Work Phone: [facility] Work Phone: 05-19-2021 14:43-0500 SaO2% (BldA) [Mass fraction] 99 % Dr. Marycarmen Rodriguez Work Phone: [facility] Work Phone: 05-19-2021 14:43-0500 Systolic blood pressure 172 mm[Hg] Dr. Marycarmen Rodriguez Work Phone: [facility] Work Phone: 05-19-2021 14:42-0500 Body mass index (BMI) [Ratio] 34 kg/m2 Dr. Marycarmen Rodriguez Work Phone: [facility] Work Phone: 05-19-2021 14:42-0500 Body weight 104.[address] Marycarmen Rodriguez Work Phone: [facility] Work Phone: 12-26-2020 10:29-0400 Diastolic blood pressure 76 mm[Hg] Eladio Ingram MD Work Phone: [facility] 12-26-2020 10:29-0400 Systolic blood pressure 141 mm[Hg] Eladio Ingram MD Work Phone: [facility] 12-26-2020 10:24-0400 Body height 175.3 cm Eladio Ingram MD Work Phone: [facility] 12-26-2020 10:24-0400 Body mass index (BMI) [Ratio] 33.67 kg/m2 Eladio Ingram MD Work Phone: [facility] 12-26-2020 10:24-0400 Body weight 103.42 kg Eladio Ingram MD Work Phone: [facility] 12-26-2020 10:24-0400 Heart rate 59 /min Eladio Ingram MD Work Phone: [facility] 12-26-2020 10:24-0400 SaO2% (BldA) [Mass fraction] 95 % Eladio Ingram MD Work Phone: [facility] 10-09-2020 10:53-0400 Diastolic blood pressure 72 mm[Hg] Fernanda Acuña INSPECTOR MATERIALS AND PROCESSES Work Phone: [facility] 10-09-2020 10:53-0400 Systolic blood pressure 134 mm[Hg] Fernanda Acuña INSPECTOR MATERIALS AND PROCESSES Work Phone: [facility] 10-09-2020 09:59-0400 Body mass index (BMI) [Ratio] 34.6 kg/m2 Fernanda Acuña INSPECTOR MATERIALS AND PROCESSES Work Phone: [facility] 10-09-2020 09:59-0400 Body weight 106.28 kg Fernanda Acuña INSPECTOR MATERIALS AND PROCESSES Work Phone: [facility] 10-09-2020 09:59-0400 Heart rate 58 /min Fernanda Acuña INSPECTOR MATERIALS AND PROCESSES Work Phone: [facility] 10-09-2020 09:59-0400 Respiratory rate 16 /min Fernanda Acuña INSPECTOR MATERIALS AND PROCESSES Work Phone: [facility] 10-09-2020 09:59-0400 SaO2% (BldA) [Mass fraction] 94 % Fernanda Acuña INSPECTOR MATERIALS AND PROCESSES Work Phone: [facility] 12-17-2016 11:21-0400 BMI (Body Mass Index) 32.99 kg/m2 Eladio Ingram [facility] Work Phone: 12-17-2016 11:21-0400 BP Diastolic 82 mm[Hg] Eladio Ingram [facility] Work Phone: 12-17-2016 11:21-0400 BP Systolic 150 mm[Hg] Eladio Ingram [facility] Work Phone: 12-17-2016 11:21-0400 Height 175.3 cm Eladio Ingram [facility] Work Phone: 12-17-2016 11:21-0400 Pulse (Heart Rate) 70 /min Eladio Ingram [facility] Work Phone: 12-17-2016 11:21-0400 Pulse Oximetry 97 % Eladio Ingram [facility] Work Phone: 12-17-2016 11:21-0400 Weight 101.33 kg Eladio Ingram [facility] Work Phone: Encounters Encounter Date Encounter Type Care Provider Facility Start: 12-03-2024 Evaluation and manag ement of inpatient Abraham Ridley Facility:[facility] Start: 12-02-2024 ambulatory Abraham Ridley [facility] ility:[facility] Start: 12-02-2024 Evaluation and manag ement of inpatient Dr. Marycarmen Rodriguez DO Work Phone: -Intensive Care Unit Start: 12-02-2024 Dr. Abraham Ridley DO -Intensive Care Unit Work Phone: Start: 12-02-2024 Dr. Nickie Danielson DO [facility] Work Phone: Start: 12-01-2024 Dr. Marcin Araujo MD -[facility] Start: 11-30-2024 End: 12-02-2024 Evaluation and management of inpatient Dr. Marycarmen Rodriguez DO Work Phone: -Intensive Care Unit Start: 11-30-2024 ambulatory Abraham Cool ility:[facility] Start: 11-30-2024 End: 12-02-2024 Dr. Abraham Ridley DO -Intensive Care Unit Work Phone: Start: 11-27-2024 Dr. Jose Hay MD -[facility] Start: 11-27-[address] Marycarmen vera DO Work Phone: -[facility] Start: 11-27-2024 End: 11-28-2024 ambulatory Jose Hay Facility:[facility] Start: 11-27-2024 End: 11-28-2024 observation encounter [...] Dr. Marycarmen Rodriguez DO Work Phone: -Radiology [facility] Start: 11-22-2024 End: 11-22-2024 Gustabo Pérez 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-C -Radiology [facility] Work Phone: Start: 11-22-2024 End: 11-22-2024 Gustabo Pérez 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-C -[facility] Work Phone: Start: 11-22-2024 End: 11-22-[address] Marycarmen Rodriguez DO Work Phone: -[facility] Start: 11-22-2024 End: 11-22-2024 ambulatory Gustabo Pérez 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 Facility:[facility] Start: 11-20-2024 End: 11-20-[address] Marycarmen Rodriguez DO Work Phone: -Radiology [facility] Start: 11-20-2024 End: 11-20-2024 Dr. Brooks Carpenter MD -Radiology [facility] Work Phone: Start: 11-20-2024 End: 11-20-2024 ambulatory Marycarmen Rodriguez Facility:[facility] Start: 11-13-2024 ambulatory Marycarmen Rodriguez Facility: [facility] Start: 11-13-2024 Non-patient / Non-visit Dr. Jose colon MD -[facility] Start: 11-13-2024 Dr. Jose Hay MD -[facility] Start: 11-10-2024 End: 11-10-[address] Marycarmen Rodriguez DO Work Phone: -Sleep Lab Start: 11-10-2024 End: 11-10-2024 Patient encounter procedure 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 Maren Olivas -Sleep Lab Work Phone: Start: 11-10-2024 End: 11-10-2024 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 Maren Olivas -Sleep Lab Work Phone: Start: 11-10-2024 ambulatory Marycarmen Rodriguez Facility: [facility] Start: 11-10-2024 Non-patient / Non-visit Dr. Lance pereira MD -[facility] Work Phone: Start: 11-10-2024 Dr. Lance Rodriguez MD -[facility] Work Phone: Start: 11-10-2024 End: 11-10-[address] Marycarmen Rodriguez DO Work Phone: -Cardiovascular Services Start: 11-10-2024 End: 11-10-2024 Patient encounter procedure Gustabo Pérez 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-C -Cardiovascular Services Work Phone: Start: 11-10-2024 End: 11-10-2024 Gustabo Pérez 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-C -Cardiovascular Services Work Phone: Start: 11-09-2024 End: 11-10-[address] Marycarmen Rodriguez DO Work Phone: -Laboratory [facility] Start: 11-09-2024 End: 11-09-[address] Marycarmen Rodriguez DO -Laboratory [facility] Start: 11-09-2024 End: 11-09-2024 Dr. Marycarmen Rodriguez DO -Laboratory [facility] Start: 11-09-2024 End: 11-09-2024 ambulatory Marycarmen Rodriguez Facility:[facility] Start: 10-31-2024 End: 10-31-2024 Patient encounter procedure 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 Maren Olivas -[facility] Work Phone: Start: 10-31-2024 End: 10-31-2024 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 Maren Olivas -[facility] Work Phone: Start: 10-31-2024 End: 10-31-[address] Marycarmen Rodriguez DO Work Phone: -[facility] Start: 10-26-2024 End: 10-26-[address] Marycarmen Rodriguez DO Work Phone: -Sleep Lab Start: 10-26-2024 End: 10-26-2024 Patient encounter procedure Marni Horn 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-C -Sleep Lab Work Phone: Start: 10-26-2024 End: 10-26-2024 Marni Horn 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-C -Sleep Lab Work Phone: Start: 10-25-2024 End: 10-25-2024 Patient encounter procedure Gustabo Pérez 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-C -[facility] Work Phone: Start: 10-25-2024 End: 10-25-2024 Gustabo Pérez 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-C -[facility] Work Phone: Start: 10-25-2024 End: 10-26-[address] Marycarmen Rodriguez DO Work Phone: [facility] Work Phone: Start: 10-18-2024 End: 10-18-[address] Marycarmen Rodriguez DO Work Phone: [facility] Work Phone: Start: 10-18-2024 End: 10-18-2024 Patient encounter procedure Marni Horn 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-C -Sleep Lab Work Phone: Start: 10-18-2024 End: 10-18-2024 Marni Honr 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-C -Sleep Lab Work Phone: Start: 10-18-2024 End: 10-18-[address] Marycarmen Rodriguez DO Work Phone: [facility] Work Phone: Start: 10-18-2024 End: 10-18-[address] Brooks Carpenter MD -Laboratory Work Phone: Start: 10-18-2024 End: 10-18-2024 Dr. Brooks Carpenter MD -Laboratory Work Phone: Start: 10-18-2024 End: 10-18-2024 ambulatory Marycarmen Jennifer Facility:[facility] Start: 09-29-2024 End: 09-29-[address] Marycarmen Rodriguez DO Work Phone: [facility] Work Phone: Start: 09-29-2024 End: 09-29-[address] Marycarmen Rodriguez DO -Laboratory [place] Work Phone: Start: 09-29-2024 End: 09-29-2024 Dr. Marycarmen Rodriguez DO -Laboratory [place] Work Phone: Start: 09-29-2024 End: 09-29-2024 ambulatory Marycarmen [facility] Facility:[facility] Start: 09-22-2024 End: 09-22-[address] Marycarmen Rodriguez DO Work Phone: [facility] Work Phone: Start: 09-22-2024 End: 09-22-2024 Patient encounter procedure Marni Horn 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-C -Sleep Lab Work Phone: Start: 09-22-2024 End: 09-22-2024 Marni Horn 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-C -Sleep Lab Work Phone: Start: 09-22-2024 End: 09-22-2024 [facility] Start: 09-20-2024 End: 09-20-[address] Marycarmen Rodriguez DO Work Phone: [facility] Work Phone: Start: 09-20-2024 End: 09-20-2024 Patient encounter procedure 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 Maren Olivas -Laboratory Work Phone: Start: 09-20-2024 End: 09-20-2024 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 Maren Olivas -Laboratory Work Phone: Start: 09-20-2024 End: 09-20-2024 Patient encounter procedure 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 Maren Olivas -[facility] Work Phone: Start: 09-20-2024 End: 09-20-2024 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 Maren Olivas -[facility] Work Phone: Start: 09-20-2024 End: 09-20-[address] Marycarmen Rodriguez DO Work Phone: [facility] Work Phone: Start: 09-20-2024 End: 09-20-2024 ambulatory [facility] Facility:[facility] Start: 08-03-2024 End: 08-03-[address] Marycarmen Rodriguez DO Work Phone: [facility] Work Phone: Start: 08-03-2024 End: 08-03-2024 Patient encounter procedure Marni Horn NP-C -Sleep Lab Work Phone: Start: 08-03-2024 End: 08-03-2024 Marni Horn 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-C -Sleep Lab Work Phone: Start: 08-03-2024 End: 08-03-2024 ambulatory Marycarmen Jennifer Facility:[facility] Start: 07-18-2024 ambulatory [facility] Facility: [facility] Start: 07-18-2024 Non-patient / Non-visit Dr. Zen shcultz DO -[facility] Start: 07-18-2024 End: 07-18-[address] Marycarmen Rodriguez DO Work Phone: [facility] Work Phone: Start: 07-18-2024 End: 07-18-2024 Patient encounter procedure Marni Horn NP-C -Pulmonary Services/Neurology Work Phone: Start: 07-17-2024 Non-patient / Non-visit Dr. Zen schultz DO -[facility] Start: 07-17-2024 End: 07-18-[address] Marycarmen Rodriguez DO Work Phone: [facility] Work Phone: Start: 07-17-2024 End: 07-17-2024 Patient encounter procedure Marni POOL -Sleep Lab Work Phone: Start: 07-17-2024 End: 07-17-2024 ambulatory [facility] Facility:[facility] Start: 07-07-2024 End: 07-07-[address] Marycarmen Rodriguez DO Work Phone: [facility] Work Phone: Start: 07-07-2024 End: 07-07-2024 Patient encounter procedure Marni POOL -Sleep Lab Work Phone: Start: 07-07-2024 End: 07-07-2024 ambulatory [facility] Facility:[facility] Start: 07-03-2024 End: 07-03-2024 Patient encounter procedure Marni PRAKASHC -[facility] Work Phone: Start: 07-03-2024 End: 07-03-2024 ambulatory [facility] Facility:[facility] Start: 06-30-2024 End: 06-30-[address] Marycarmen Rodriguez DO Work Phone: [facility] Work Phone: Start: 06-30-2024 End: 06-30-[address] Marycarmen Rodriguez DO -Laboratory, [facility] Start: 06-30-2024 End: 06-30-2024 ambulatory [facility] Facility:[facility] Start: 04-17-2024 End: 04-17-2024 Patient encounter procedure Gustabo PRAKASHC -[facility] Work Phone: Start: 04-17-2024 End: 04-17-2024 ambulatory Gustabo Pérez 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 Facility:[facility] Start: 04-17-2024 End: 04-17-2024 ambulatory Gustabo Murray Beto 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 Facility:[facility] Start: 03-27-2024 End: 03-27-[address] Jose Hay MD -[facility] Work Phone: Start: 03-27-2024 End: 03-27-2024 ambulatory Jose Hay Facility:[facility] Start: 03-23-2024 End: 03-23-[address] Marycarmen Rodriguez DO -[facility], [facility] Start: 03-23-2024 End: 03-23-2024 ambulatory Marycarmen Jennifer Facility:[facility] Start: 03-20-2024 End: 03-20-[address] Jose Hay MD -[facility] Work Phone: Start: 03-20-2024 End: 03-20-2024 ambulatory Marycarmen [facility] Facility:[facility] Start: 05-07-2023 End: 05-07-2023 ambulatory [facility] Work Phone: Start: 05-07-2023 End: 05-07-2023 Patient encounter procedure [facility]-Ritesh Martini [facility] Start: 12-29-2022 Non-patient / Non-visit Dr. Ap Rodriguez Work Phone: [facility] Work Phone: Start: 12-28-2022 Non-patient / Non-visit Dr. Ap Rodriguez Work Phone: [facility] Start: 12-28-2022 End: 12-28-[address] Marycarmen Rodriguez Work Phone: [facility] Work Phone: Start: 12-28-2022 End: 12-28-[address] Marycarmen Rodriguez Work Phone: [facility]-Cardiovascula r Services Work Phone: Start: 12-21-2022 End: 12-21-2022 Admission to same day surgery center Dr. Marycarmen Rodriguez Work Phone: [facility]-Shot Fireman/Special Procedures Work Phone: Start: 12-21-2022 End: 12-21-[address] Marycarmen Rodriguez Work Phone: [facility] Work Phone: Start: 12-15-2022 End: 12-15-[address] Marycarmen Rodriguez Work Phone: [facility] Work Phone: Start: 12-15-2022 End: 12-15-[address] Marycarmen Rodriguez Work Phone: [facility]-Laboratory Work Phone: Start: 12-15-2022 End: 12-15-[address] Marycarmen Rodriguez Work Phone: [facility] Work Phone: Start: 10-16-2022 End: 10-16-2022 ambulatory Marycarmen SWAIN [facility] Work Phone: Start: 10-16-2022 End: 10-16-2022 Patient encounter procedure Marycarmen SWAIN [facility]-Pulmonary Services/Neurology Start: 10-13-2022 End: 10-13-2022 ambulatory Marycarmen SWAIN [facility] Work Phone: Start: 10-13-2022 End: 10-13-2022 Patient encounter procedure Marycarmen SWAIN [facility] Start: 09-21-2022 Non-patient / Non-visit Marycarmen gifford [facility] Inpatient Physicians Start: 09-20-2022 Non-patient / Non-visit Marycarmen gifford [facility] Start: 09-19-2022 Non-patient / Non-visit Marycarmen gifford [facility]patient [facility] Start: 09-18-2022 Non-patient / Non-visit Marycarmen gifford [facility] Start: 09-17-2022 End: 09-17-2022 Non-patient / Non-visit Marycarmen SWAIN [facility] Inpatient Physicians Start: 09-17-2022 End: 09-21-2022 Evaluation and management of inpatient Marycarmen SWAIN [facility] Care Unit Start: 09-09-2022 Non-patient / Non-visit Marycarmen gifford [facility] Heart [facility] Start: 09-01-2022 Non-patient / Non-visit Marycarmen gifford [facility] Start: 08-31-2022 End: 08-31-2022 Non-patient / Non-visit Marycarmen Rodriguez [facility] Heart [facility] Start: 08-31-2022 Non-patient / Non-visit Marycarmen gifford [facility] Heart [facility] Start: 08-31-2022 End: 09-01-2022 Evaluation and management of inpatient Marycarmen Rodriguez [facility] Start: 08-31-2022 End: 09-01-2022 observation encounter Marycarmen Rodriguez [facility] Work Phone: Start: 08-19-2022 End: 08-19-2022 ambulatory Marycarmen Rodriguez [facility] Work Phone: Start: 08-19-2022 End: 08-19-2022 Patient encounter procedure Marycarmen Rodriguez [facility] Start: 08-11-2022 Non-patient / Non-visit Marycarmen gifford [facility] Heart [facility] Start: 06-11-2022 End: 06-11-[address] Marycarmen Rodriguez Work Phone: [facility] Work Phone: Start: 06-11-2022 End: 06-11-[address] Marycarmen Rodriguez Work Phone: [facility] Start: 04-21-2022 Non-patient / Non-visit Dr. Ap Rodriguez Work Phone: [facility] Start: 04-21-2022 End: 04-21-[address] Marycarmen Rodriguez Work Phone: [facility] Work Phone: Start: 04-21-2022 End: 04-21-[address] Marycarmen Rodriguez Work Phone: [facility]-Cardiovascula r Services Start: 04-16-2022 End: 04-16-[address] [facility] Start: 04-14-2022 End: 04-14-[address] Marycarmen Rodriguez Work Phone: [facility] Work Phone: Start: 04-14-2022 End: 04-14-[address] Marycarmen Rodriguez Work Phone: [facility], [facility] Start: 04-14-2022 End: 04-14-[address] Marycarmen Rodriguez Work Phone: [facility] Start: 03-27-2022 End: 03-27-[address] Marycarmen Rodriguez Work Phone: [facility] Start: 01-20-2022 End: 01-20-[address] Marycarmen Rodriguez Work Phone: [facility], [facility] Start: 01-07-2022 End: 01-07-[address] Marycarmen Rodriguez [facility] Start: 11-27-2021 Non-patient / Non-visit Dr. Ap Rodriguez Work Phone: [facility] Start: 11-26-2021 End: 11-26-[address] Marycarmen Rodriguez Work Phone: [facility]-Pulmonary Services/Neurology Start: 11-21-2021 End: 11-21-[address] Marycarmen Rodriguez Work Phone: [facility] Start: 11-16-2021 End: 11-16-2021 Emergency department patient visit Dr. Marycarmen Rodriguez Work Phone: [facility]-Emergency Department Start: 10-28-2021 End: 10-28-[address] Marycarmen Rodriguez Work Phone: [facility] Start: 09-16-2021 End: 09-16-[address] [facility]arm[facility] Start: 09-16-2021 End: 09-16-[address] Marycarmen Rodriguez Work Phone: [facility] Heart [facility] Start: 08-15-2021 Non-patient / Non-visit Dr. Ap Rodriguez Work Phone: [facility] Start: 08-15-2021 Non-patient / Non-visit Dr. Ap Rodriguez Work Phone: [facility] Start: 08-15-2021 End: 08-15-[address] Maryacrmen Rodriguez Work Phone: [facility]-Cardiovascula r Services Start: 08-01-2021 End: 08-01-[address] Marycarmen Rodriguez Work Phone: [facility] Start: 06-10-2021 End: 06-10-2021 Emergency department patient visit Dr. Marycarmen Rodriguez Work Phone: [facility]-Emergency Department Start: 05-19-2021 End: 05-19-2021 Emergency department patient visit Dr. Marycarmen Rodriguez Work Phone: [facility]-Emergency Department Start: 05-16-2021 End: 05-16-[address] Marycarmen Rodriguez Work Phone: [facility]-Laboratory, Specimen Start: 03-19-2021 ambulatory ELADIO ALLEN [facility] Start: 02-24-2021 End: 02-25-2021 ambulatory [facility] Start: 02-20-2021 End: 02-24-[address] 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) (Primary Dx) Start: 12-31-2020 [facility] Eladio Ingram MD Work Phone: [facility] Comment on above: Chest pain, unspecif ied type (Primary Dx) Start: 12-26-2020 End: 12-30-2020 Orders Only Justa Euceda RN [facility] Start: 12-26-2020 End: 12-26-2020 Office outpatient visit 25 minutes Marycarmen Rodriguez DO Work Phone: [facility] Comment on above: Essential hypertensi on (Primary Dx); Atherosclerosis of [place] coronary artery with angina pectoris, unspecified whether [place] or transplanted heart (HCC); Coronary artery disease involving [place] coronary artery of [place] heart with angina pectoris (HCC); Mixed hyperlipidemia Start: 12-18-2020 ambulatory MIN Lux y:[facility] Start: 10-15-2020 End: 10-16-2020 ambulatory [facility] Start: 10-15-2020 End: 10-15-2020 Subsequent hospital visit by physician Eladio Ingram MD Work Phone: [facility] Phys[facility] Comment on above: Arrived Start: 10-10-2020 ambulatory FERNANDABULMARO ACUÑA [facility] Ambulatory Start: 10-09-2020 End: 10-09-2020 Orders Only Fernandabulmaro Acuña INSPECTOR [employer]ERIALS AND PROCESSES Work Phone: [facility] Office Comment on above: DEAN (dyspnea on exer tion) (Primary Dx) Start: 10-09-2020 End: 10-09-2020 Office outpatient new 45 minutes Fernanda Silvia Acuña INSPECTOR [employer]ERIALS AND PROCESSES Work Phone: [facility] Office Comment on above: DEAN (dyspnea on exer tion); Essential hypertension; Type 2 diabetes mellitus without complication, without long-term current use of insulin (HCC); MATTHEW (obstructive sleep apnea); Coronary artery disease involving [place] coronary artery of [place] heart without angina pectoris Start: 10-04-2020 End: 10-04-2020 Orders Only Deisi March RN [facility] Office Comment on above: Shortness of breath (Primary Dx) Start: 12-17-2016 Office/outpatient vi sit, est, level 4 Eladio Ingram Work Phone: [facility] Start: 11-28-2016 End: 11-28-2016 Patient encounter procedure [facility] Procedures Date Procedure Procedure Detail [...] Work Phone: Comment on above: Test Ordered: [id number] Screen, Urine Negative ng/mL UI Reference Range: Vyokom=352Jcxdyzuszlr test includes Amphetamine and Methamphetamine.Barbiturates Negative ng/mL UI Reference Range: Pcmwxy=967Lyqxxbysafcohsk Negative ng/mL UI Reference Range: Eaqgro=466Mwaozux (Metab.), Urine Negative ng/mL UI Reference Range: Vatjzt=482Qrnzcom Note: ng/mL UI See Final Results Reference Range: Fyvhea=662Hdivzh test includes Codeine, Morphine, Hydromorphone, Hydrocodone.Opiates Positive [A ] UI Reference Range: Kqaeyz=184Jqewhx test includes Codeine, Morphine, Hydromorphone, Hydrocodone.Codeine Negative UI Reference Range: Qdknpi=268Pmgrjxlt Negative UI Reference Range: Pggwgl=304Fqysksuexagcl Negative UI Reference Range: Hasxvg=661Uwsmzmpyyig Positive [A ] UI Reference Range: .Hydrocodone Conf, MS, UR 349 ng/mL UI Reference Range: Xaeqym=1564-Kwcbueplkiprqu, Urine Negative ng/mL UI Reference Range: Cutoff=10Oxycodone/Oxymorphone, Urine Negative ng/mL UI Reference Range: Mpjwfm=148Rjxc includes Oxycodone and OxymorphonePCP, Urine Negative ng/mL UI Reference Range: Cutoff=25Methadone Screen, Urine Negative ng/mL UI Reference Range: Icgqnc=910Rcpythqmdmyg, Urine Negative ng/mL UI Reference Range: Dxepym=306Eslhtpje, Urine Negative ng/mL UI Reference Range: Cutoff=2.0Test includes Fentanyl and NorfentanylThis test was developed and its performance characteristicsdetermined by [employer]. It has not been cleared orapproved by the Food and Drug Administration.Tramadol Negative ng/mL UI Reference Range: Cynucz=563Paodyhbczrrgj, Urine Negative ng/mL UI Reference Range: Cutoff=10Creatinine, Urine 36.9 mg/dL UI Reference Range: 20.0-300.0pH, Urine 6.1 UI Reference Range: 4.5-8.9Performed at: [facility] [id number] [place], [place] [id number] Director: Erik Wallis PhD, Phone: [phone] at: [facility] [id number] Director: Bharath Hawthorne PhD, Phone: [phone] Start: 10-18-[address] Marycarmen [...] Phone: Start: 10-15-2020 TTE w or wo Candida mccabe MD Work Phone: Start: 10-09-2020 Ecg routine ecg w/le ast 12 lds w/i&r Fernanda Acuña [employer] Work Phone: Start: 08-18-2018 History of percutane ous transluminal coronary angioplasty History of percutaneous transluminal coronary angioplasty Dr. 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 Alexandr Mcclain Start: 08-13-2017 History of placement of stent for coronary artery disease History of coronary artery stent placement Dr. 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 Procedure aborted. 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1299ELL-ZREJ-Yg and Stent-Mid RCA x 2 Multi Link Mini Vision Rx Stent 4.0 x 28 mm 01/21/2006 Plan of Treatment Date Care Activity Detail Author Start: 12-03-2024 Electrocardiographic procedure [facility] Start: 12-02-2024 [facility] Start: 12-02-2024 End: 12-02-2024 Hospital admission, emergency, from emergency room, medical nature [facility] Start: 12-02-2024 [facility] Start: 12-02-2024 Patient discharge [facility] Start: 12-02-2024 Electrocardiographic procedure [facility] Start: 12-02-2024 Magnetic resonance angiography of head without contrast [facility] Start: 12-02-2024 Magnetic resonance angiography of neck without contrast [facility] Start: 12-02-2024 MRA Head vessels WO contrast [facility] Start: 12-02-2024 MRA Neck vessels WO contrast [facility] Start: 12-01-2024 Vital signs measurements [facility] Start: 12-01-2024 Aspiration precautions [facility] Start: 12-01-2024 Cardiac monitoring [facility] Start: 12-01-2024 Catheterization of vein [facility] Start: 12-01-2024 Consultation [facility] Start: 12-01-[address] [facility] Start: 12-01-2024 Elevation of head of bed [facility] Start: 12-01-2024 Exercises [facility] Start: 12-01-[address] [facility] Start: 12-01-2024 Oxygen therapy [facility] Start: 12-01-2024 Patient referral to dietitian [facility] Start: 12-01-2024 Referral to occupational therapist [facility] Start: 12-01-2024 Referral to service [facility] Start: 12-01-[address] [facility] Start: 12-01-2024 Telemedicine consultation with patient [facility] Start: 12-01-2024 Tobacco use cessation education [facility] Start: 12-01-2024 End: 12-01-2024 [facility] Start: 12-01-2024 [facility] Start: 12-01-2024 [facility] Start: 12-01-2024 Electrocardiographic procedure [facility] Start: 12-01-2024 Continuous positive airway pressure ventilation treatment [facility] Start: 12-01-2024 US Heart [facility] Start: 12-01-2024 Complete blood count [facility] Start: 11-30-2024 End: 11-30-2024 [facility] Start: 11-30-2024 Following clinical pathway protocol [facility] Start: 11-30-2024 Ambulation without limitation [facility] Start: 11-30-2024 Assessment of risk of venous thromboembolism [facility] Start: 11-30-2024 Insertion of catheter into peripheral vein [facility] Start: 11-30-2024 Measuring intake and output [facility] Start: 11-30-2024 Providing care according to standard [facility] Start: 11-30-2024 Referral to service [facility] Start: 11-30-2024 Care regimes management [facility] Start: 11-30-2024 Complete blood count [facility] Start: 11-30-2024 Elevation of head of bed [facility] Start: 11-30-2024 Admission procedure [facility] Start: 11-30-2024 Cardiac monitoring [facility] Start: 11-30-2024 Cardiac rehabilitation - phase 1 [facility] Start: 11-30-2024 Cardiac rehabilitation - phase 2 [facility] Start: 11-30-2024 Dietary regime [facility] Start: 11-30-2024 Log roll [facility] Start: 11-30-2024 End: 11-30-[address] [facility] Start: 11-30-2024 Oxygen therapy [facility] Start: 11-30-2024 Patient discharge [facility] Start: 11-30-2024 Provision of activity privileges [facility] Start: 11-30-2024 Pulse taking [facility] Start: 11-30-2024 Hospital admission, emergency, from emergency room, medical nature [facility] Start: 11-30-2024 Electrocardiographic procedure [facility] Start: 11-30-2024 End: 11-30-2024 [facility] Start: 11-30-2024 Partial thromboplastin time, activated [facility] Start: 11-30-2024 Prothrombin time [facility] Start: 11-28-2024 [facility] Start: 11-28-2024 Patient discharge [facility] Start: 11-28-2024 Complete blood count [facility] Start: 11-27-2024 Following clinical pathway protocol [facility] Start: 11-27-2024 Elevation of head of bed [facility] Start: 11-27-2024 Dietary regime [facility] Start: 11-27-2024 Log roll [facility] Start: 11-27-2024 Provision of activity privileges [facility] Start: 11-27-2024 End: 11-27-2024 [facility] Start: 11-27-2024 Admission procedure [facility] Start: 11-27-2024 Cardiac monitoring [facility] Start: 11-27-2024 Cardiac rehabilitation - phase 1 [facility] Start: 11-27-2024 Cardiac rehabilitation - phase 2 [facility] Start: 11-27-[address] [facility] Start: 11-27-2024 Oxygen therapy [facility] Start: 11-27-2024 Pulse taking [facility] Start: 11-27-2024 Continuous positive airway pressure ventilation treatment [facility] Start: 11-27-2024 Inhalation therapy procedure [facility] Start: 11-26-2024 [facility] Start: 11-26-2024 [facility] Start: 11-22-2024 Evaluation of diagnostic study results [facility] Start: 10-25-2024 Evaluation of diagnostic study results [facility] Start: 07-25-2024 Walking distance 6 minutes [facility] Start: 07-17-2024 Measurement of respiratory function [facility] Start: 12-21-2022 Patient discharge [facility] Start: 10-05-2022 Measurement of respiratory function [facility] Start: 09-21-2022 Patient discharge [facility] Start: 09-20-[address] [facility] Start: 09-18-2022 Following clinical pathway protocol [facility] Start: 09-17-2022 Aspiration precautions [facility] Start: 09-17-2022 Assessment of risk of venous thromboembolism [facility] Start: 09-17-2022 Cardiac monitoring [facility] Start: 09-17-2022 Care regimes management [facility] Start: 09-17-2022 Catheterization of vein [facility] Start: 09-17-2022 Continuous positive airway pressure ventilation treatment [facility] Start: 09-17-[address] [facility] Start: 09-17-2022 Elevation of head of bed [facility] Start: 09-17-2022 Exercises [facility] Start: 09-17-2022 Fall prevention [facility] Start: 09-17-2022 Implementation of planned interventions [facility] Start: 09-17-2022 Inhalation therapy procedure [facility] Start: 09-17-2022 Insertion of catheter into peripheral vein [facility] Start: 09-17-2022 Introduction of urinary catheter [facility] Start: 09-17-2022 Measuring intake and output [facility] Start: 09-17-[address] [facility] Start: 09-17-2022 Oxygen therapy [facility] Start: 09-17-2022 End: 09-18-2022 Patient referral to dietitian [facility] Start: 09-17-2022 Providing care according to standard [facility] Start: 09-17-2022 Provision of activity privileges [facility] Start: 09-17-2022 Referral to occupational therapist [facility] Start: 09-17-2022 Referral to service [facility] Start: 09-17-[address] [facility] Start: 09-17-2022 Tobacco use cessation education [facility] Start: 09-17-2022 [facility] Start: 09-17-2022 Admission procedure [facility] Start: 09-01-2022 Patient discharge [facility] Start: 08-31-2022 Patient referral [facility] Work Phone: Start: 08-31-2022 Following clinical pathway protocol [facility] Start: 08-31-2022 Pulse taking [facility] Start: 08-31-2022 Cardiac monitoring [facility] Start: 08-31-2022 Cardiac rehabilitation - phase 1 [facility] Start: 08-31-2022 Cardiac rehabilitation - phase 2 [facility] Start: 08-31-[address] [facility] Start: 08-31-2022 Oxygen therapy [facility] Start: 08-31-2022 Patient discharge [facility] Start: 08-31-2022 Taking patient vital signs [facility] Start: 08-31-2022 Vascular disease risk assessment [facility] Start: 08-31-2022 Vital signs measurements [facility] Start: 08-31-2022 End: 08-31-2022 [facility] Start: 08-31-2022 Admission procedure [facility] Start: 11-16-2021 [facility] Work Phone: Start: 01-10-2021 End: 01-10-2021 Admission to same day surgery center 01/10/2021 Surgery Cardiology Eladio Ingram MD [address] [facility] [address] [place] [address] Left Heart Cath Possible PTCA/Stent [facility] [employer] Comment on above: Left Heart Cath Possible PTCA/Stent Start: 01-10-2021 Subsequent hospital visit by physician 01/10/2021 Hospital Encounter Eladio Ingram MD [address] [facility] [address] [place] [address] [facility] Proced[facility] Care Unit Start: 01-01-2021 Influenza vaccination [facility] Start: 12-26-2020 End: 12-26-2020 Patient encounter procedure 12/26/2020 Office Visit Cardiology Marycarmen Rodriguez, [address] [place] [address] [phone] Eladio Ingram MD [address] [facility] [address] [place] [address] [phone] [facility] Office Start: 10-15-2020 End: 10-15-2020 Patient encounter procedure 10/15/2020 Appointment Cardiology Eladio Ingram MD [address] [facility] [address] [place] [address] [phone] [facility] Start: 10-09-2020 End: 10-09-2020 Patient encounter procedure 10/09/2020 Office Visit Cardiology Fernanda Acuña, [employer] [address] [place] [address] [phone] [facility] Office Start: 11-05-2017 Prostate specific antigen measurement PSA Level [facility] Start: 06-01-2017 HEMOGLOBIN A1C HEMOGLOBIN A1C [facility] Work Phone: Start: 06-01-2017 Hemoglobin A1c measurement A1C [facility] Start: 06-01-2017 Hemoglobin A1c/Hemoglobin.total mass fraction (Bld) HEMOGLOBIN A1C [facility] Work Phone: Start: 01-01-2017 SEQUENTIAL INFLUENZA VACCINE (#1) SEQUENTIAL INFLUENZA VACCINE (#1) [facility] Work Phone: Start: 12-17-2016 Ambulatory 12/17/2016 Office Visit Cardiology Eladio Ingram MD [address] [facility] [address] [place] [address] [phone] [facility] Start: 2010 ABDOMINAL AORTIC ULTRASOUND ABDOMINAL AORTIC ULTRASOUND [facility] Work Phone: Start: 2010 Fall risk assessment Falls Risk Assessment [facility] Start: 2010 PNEUMOCOCCAL VACCINE AGE 65+ (1 of 2 - PCV13) PNEUMOCOCCAL VACCINE AGE 65+ (1 of 2 - PCV13) [facility] Work Phone: Start: 2005 Zoster vacc, sc ZOSTER VACCINE [facility] Work Phone: Start: 08-01-1995 Administration of herpes zoster vaccine Zoster Vaccines (1 of 2) [facility] Start: 08-01-1995 Screening for malignant neoplasm of colon [facility] Start: 08-01-1963 Hepatitis C screening Hepatitis C Screening [facility] Start: 1957 COVID-19 Vaccine (1) COVID-19 Vaccine (1) [facility] Start: 08-01-1955 3 comp foot exam completed FOOT EXAM [facility] Work Phone: Start: 08-01-1955 Albumin Test strip detection limit <= 20 mg/L mass conc (U) URINE MICROALBUMIN [facility] Work Phone: Start: 08-01-1955 Diabetic foot examination Foot Exam [facility] Start: 08-01-1955 Microalbumin measurement, urine, quantitative Urine Microalbumin [facility] Start: 08-01-1955 Ophthalmic examination and evaluation OPHTHALMOLOGY EXAM [facility] Start: 08-01-1955 FOOT EXAM FOOT EXAM [facility] Work Phone: Start: 08-01-1955 OPHTHALMOLOGY EXAM OPHTHALMOLOGY EXAM [facility] Work Phone: Start: 08-01-1955 URINE MICROALBUMIN URINE MICROALBUMIN [facility] Work Phone: Start: 08-01-1951 Pneumococcal Vaccine: Age 65+ (1 of 2 - PPSV23) Pneumococcal Vaccine: Age 65+ (1 of 2 - PPSV23) [facility] Start: 1948 History and physical examination, annual for health maintenance Wellness Visit [facility] Start: 1945 Colonoscopy COLONOSCOPY [facility] Work Phone: Start: 1945 Tetanus vaccination Tetanus: Every 10yrs [facility] Start: 1945 Colonoscopy COLONOSCOPY [facility] Work Phone: Start: 1945 End: 1945 HEPATITIS C SCREENING HEPATITIS C SCREENING [facility] Work Phone: Start: 1945 End: 1945 TETANUS EVERY 10 YR TETANUS EVERY 10 YR [facility] Work Phone: Alanine aminotransfe rase [Enzymatic activity/volume] in Serum or Plasma [facility] Alanine aminotransfe rase [Enzymatic activity/volume] in Serum or Plasma [facility] Albumin [Mass/volume ] in Serum or Plasma [facility] Albumin [Mass/volume ] in Serum or Plasma [facility] Alkaline phosphatase [Enzymatic activity/volume] in Serum or Plasma [facility] Alkaline phosphatase [Enzymatic activity/volume] in Serum or Plasma [facility] Anion gap in Serum or Plasma [facility] Anion gap in Serum or Plasma [facility] End: 12-26-2021 Basic metabolic 1999 panel - Serum or Plasma Basic metabolic panel Lab Routine Atherosclerosis of [place] coronary artery with angina pectoris, unspecified whether [place] or transplanted heart (HCC) Essential hypertension 1 Occurrences starting 12/26/2020 until 12/26/2021 [facility] Comment on above: 1 Occurrences starting 12/26/2020 until 12/26/2021 Basic metabolic 1999 panel - Serum or Plasma Basic metabolic panel Lab Routine Atherosclerosis of [place] coronary artery with angina pectoris, unspecified whether [place] or transplanted heart (HCC) Essential hypertension 12/26/2020 11:28 AM EDT [facility] Basic metabolic 2007 panel with ionized calcium - Serum or Plasma [facility] Basic metabolic 2007 panel with ionized calcium - Serum or Plasma [facility] End: 12-17-2017 Basic metabolic panel [AGGREGATE] Basic metabolic panel Routine MATTHEW (obstructive sleep apnea) Coronary artery disease involving [place] coronary artery of [place] heart without angina pectoris 1 Occurrences starting 12/17/2016 until 12/17/2017 [facility] Work Phone: Bilirubin, total measurement [facility] Bilirubin, total measurement [facility] Blood chemistry [facility] BUN/Creatinine ratio [facility] BUN/Creatinine ratio [facility] Calcium [Mass/volume ] in Serum or Plasma [facility] Calcium [Mass/volume ] in Serum or Plasma [facility] Carbon dioxide, tota l [Moles/volume] in Central venous blood [facility] Carbon dioxide, tota l [Moles/volume] in Central venous blood [facility] Catheterization of l eft heart [facility] Catheterization of l eft heart [facility] Catheterization of l eft heart [facility] CBC W Auto Different ial panel - Blood [facility] CBC W Auto Different ial panel - Blood [facility] End: 12-26-2021 Complete blood count with white cell differential, manual CBC and differential Lab Routine Atherosclerosis of [place] coronary artery with angina pectoris, unspecified whether [place] or transplanted heart (HCC) Essential hypertension 1 Occurrences starting 12/26/2020 until 12/26/2021 [facility] Work Phone: Comment on above: 1 Occurrences starting 12/26/2020 until 12/26/2021 Complete blood count with white cell differential, manual CBC and differential Lab Routine Atherosclerosis of [place] coronary artery with angina pectoris, unspecified whether [place] or transplanted heart (HCC) Essential hypertension 12/26/2020 11:28 AM EDT [facility] Creatinine [Mass/vol ume] in Serum or Plasma [facility] Creatinine [Mass/vol ume] in Serum or Plasma [facility] End: 01-10-[address]22 CT Angiogram Aorta Chest Abdomen Pelvis CT Angiogram Aorta Chest Abdomen Pelvis Imaging Routine Coronary artery disease involving [place] coronary artery of [place] heart with angina pectoris (HCC) 1 Occurrences starting 01/10/2021 until 01/10/2022 [facility] Work Phone: Comment on above: 1 Occurrences starting 01/10/2021 until 01/10/2022 End: 12-04-2021 Echocardiography Echocardiogram complete Echocardiography Routine Shortness of breath 1 Occurrences starting 10/04/2020 until 12/04/2021 [facility] Comment on above: 1 Occurrences starting 10/04/2020 until 12/04/2021 Erythrocyte mean cor puscular volume determination [facility] Erythrocyte mean cor puscular volume determination [facility] Erythrocyte mean cor puscular volume determination [facility] Glucose [Mass/volume ] in Serum or Plasma [facility] Glucose [Mass/volume ] in Serum or Plasma [facility] Hematocrit [Volume F raction] of Blood [facility] Hematocrit [Volume F raction] of Blood [facility] Hematocrit [Volume F raction] of Blood [facility] Hemoglobin [Mass/vol ume] in Blood [facility] Hemoglobin [Mass/vol ume] in Blood [facility] Hemoglobin [Mass/vol ume] in Blood [facility] INR in Blood by Coag ulation assay [facility] LEFT HEART CATH POSS IBLE PTCA/STENT LEFT HEART CATH POSSIBLE PTCA/STENT [facility] Leukocytes [#/volume ] in Blood [facility] Leukocytes [#/volume ] in Blood [facility] Leukocytes [#/volume ] in Blood [facility] End: 12-17-2017 Magnesium Magnesium Routine MATTHEW (obstructive sleep apnea) Coronary artery disease involving [place] coronary artery of [place] heart without angina pectoris 1 Occurrences starting 12/17/2016 until 12/17/2017 [facility] Work Phone: Mean corpuscular hem oglobin concentration determination [facility] Mean corpuscular hem oglobin concentration determination [facility] Mean corpuscular hem oglobin concentration determination [facility] Mean corpuscular hem oglobin determination [facility] Mean corpuscular hem oglobin determination [facility] Mean corpuscular hem oglobin determination [facility] Measurement of renal function [facility] Measurement of renal function [facility] Measurement of respi ratory function [facility] Work Phone: Natriuretic peptide. B prohormone N-Terminal [Mass/volume] in Serum or Plasma [facility] Natriuretic peptide. B prohormone N-Terminal [Mass/volume] in Serum or Plasma [facility] NM Heart Views W str ess and W radionuclide IV [facility] Patient Education [facility] Work Phone: Patient referral [facility] Work Phone: Platelets [#/volume] in Blood [facility] Platelets [#/volume] in Blood [facility] Platelets [#/volume] in Blood [facility] Potassium measurement [facility] Potassium measurement [facility] Red blood cell count [facility] Red blood cell count [facility] Red blood cell count [facility] Red cell distributio n width determination [facility] Red cell distributio n width determination [facility] Red cell distributio n width determination [facility] Serum chloride measurement [facility] Serum chloride measurement [facility] Sodium measurement [facility] Sodium measurement [facility] Total protein measurement [facility] Total protein measurement [facility] Troponin T.cardiac [Mass/volume] in Serum or Plasma by High sensitivity method [facility] Troponin T.cardiac [Mass/volume] in Serum or Plasma by High sensitivity method [facility] Troponin T.cardiac [Mass/volume] in Serum or Plasma by High sensitivity method [facility] Troponin T.cardiac [Mass/volume] in Serum or Plasma by High sensitivity method [facility] Troponin T.cardiac [Mass/volume] in Serum or Plasma by High sensitivity method [facility] Urea nitrogen [Mass/ volume] in Serum or Plasma [facility] Urea nitrogen [Mass/ volume] in Serum or Plasma [facility] Heart [facility] Heart [facility] XR Chest PA and Lateral [facility] Immunizations Immunization Date Immunization Notes Care Provider Fa cility 11-26-2024 tetanus toxoid, redu terry diphtheria toxoid, and acellular pertussis vaccine, adsorbed Dr. Marycarmen Rodriguez DO Work Phone: [facility] 02-19-2023 influenza, injectabl e, quadrivalent, preservative free Dr. Marycarmen Rodriguez DO Work Phone: [facility] 01-27-2022 influenza, injectabl e, quadrivalent, preservative free Dr. Marycarmen Rodriguez DO Work Phone: [facility] 09-04-2021 Covid (Pfizer) Dr. Marycarmen hough DO Work Phone: [facility] 02-24-2021 Covid (Pfizer) Dr. Marycarmen hough DO Work Phone: [facility] 06-27-2020 Covid (Pfizer) Dr. Marycarmen hough DO Work Phone: [facility] 05-31-2020 Covid (Pfizer) Dr. Marycarmen hough DO Work Phone: [facility] 02-20-[address] Marycarmen Rodriguez Work Phone: [facility] 02-14-[address] Marycarmen Rodriguez Work Phone: [facility] 01-31-[address] Marycarmen Rodriguez Work Phone: [facility] 04-12-2017 influenza, high dose seasonal, preservative-free Dr. Marycarmen Rodriguez DO Work Phone: [facility] 11-29-2016 HEMOGLOBIN A1C [facility] Work Phone: 08-16-2014 pneumococcal polysaccharide vaccine, [address] Marycarmen Rodriguez DO Work Phone: [facility] 08-05-2005 hepatitis A vaccine, pediatric/adolescent dosage, [address] Marycarmen Rodriguez DO Work Phone: [facility] 01-14-2005 hepatitis A vaccine, pediatric/adolescent dosage, [address] Marycarmen Rodriguez DO Work Phone: [facility] 01-14-2005 TD(adult) unspecifie d formulation Dr. Marycarmen Rodriguez DO Work Phone: [facility] Payers Date Payer Category Payer Self-pay [id number] 2019 Unknown [id number] 1. [id number] 2019 Unknown [id number] 2012 Unknown [id number] 2.1 6.840.1.926391.3.249.13 2010 Medicare [id number] 2.16 .840.1.980737.3.249.13 2010 Medicare [id number] 1.2 .840.577679.1.13.385.2.7.3.005580.315 2010 Medicare [id number] 2010 Medicare [id number] 1945 Unknown [id number] 2.16. 840.1.170921.3.579.2.594 1945 Unknown [id number] 2.16. 840.1.204138.3.579.2.902 1945 Unknown [id number] 2.16 840.1.824003.3.579.2.903 1945 Unknown [id number] 2.16 840.1.954494.3.579.2.903 1945 Unknown [id number] 2.16 840.1.243424.3.579.2.903 1945 Unknown [id number] 2.16. 840.1.130355.3.579.2.903 1945 Unknown [id number] 2.16 840.1.807102.3.579.2.903 1945 Unknown [id number] 2.16. 840.1.515354.3.579.2.903 1945 Unknown [id number] 2.16. 840.1.020085.3.579.2.903 1945 Unknown [id number] 2.16. 840.1.665108.3.579.2.903 Unknown [id number] 2.16.8 40.1.983671.3.579.2.462 Unknown [id number] 2.16.8 40.1.737968.3.579.2.462 Unknown [id number] 2.16.8 40.1.536916.3.579.2.462 Unknown [id number] 2.16.8 40.1.818464.3.579.2.462 Unknown [id number] 2.16.8 40.1.968845.3.579.2.462 Unknown [id number] 2.16.8 40.1.024820.3.579.2.462 Unknown [id number] 2.16.8 40.1.160454.3.579.2.462 Unknown [id number] 2.16.8 40.1.333402.3.579.2.462 Unknown [id number] 2.16.8 40.1.974219.3.579.2.462 Unknown [id number] 2.16.8 40.1.255083.3.579.2.462 Unknown [id number] 2.16.8 40.1.968652.3.579.2.462 Unknown [id number] 2.16.8 40.1.672809.3.579.2.462 Unknown [id number] 2.16.8 40.1.480337.3.579.2.462 Unknown [id number] 2.16.8 40.1.959214.3.579.2.462 Unknown [id number] 2.16.8 40.1.149512.3.579.2.462 Unknown [id number] 2.16.8 40.1.797687.3.579.2.462 Unknown [id number] 2.16.8 40.1.997757.3.579.2.462 Unknown [id number] 2.16.8 40.1.058995.3.579.2.462 Unknown [id number] 2.16.8 40.1.009731.3.579.2.462 Unknown [id number] 2.16.8 40.1.720444.3.579.2.462 Unknown [id number] 2.16.8 40.1.803278.3.579.2.462 Unknown [id number] 2.16.8 40.1.205751.3.579.2.462 Unknown [id number] 2.16.8 40.1.363619.3.579.2.462 Unknown [id number] 2.16.8 40.1.581370.3.579.2.462 Unknown [id number] 2.16.8 40.1.749973.3.579.2.462 Unknown [id number] 2.16.8 40.1.274074.3.579.2.462 Unknown [id number] 2.16.8 40.1.516434.3.579.2.462 Unknown [id number] 2.16.8 40.1.632885.3.579.2.462 Unknown [id number] 2.16.8 40.1.107329.3.579.2.462 Unknown [id number] 2.16.8 40.1.256084.3.579.2.462 Unknown [id number] 2.16.8 40.1.993838.3.579.2.462 Unknown [id number] 2.16.8 40.1.486334.3.579.2.462 Unknown [id number] 2.16.8 40.1.332617.3.579.2.462 Unknown [id number] 2.16.8 40.1.019130.3.579.2.462 Unknown [id number] 2.16.8 40.1.125468.3.579.2.462 Unknown [id number] 2.16.8 40.1.673367.3.579.2.462 Unknown [id number] 2.16.8 40.1.170213.3.579.2.462 Unknown [id number] 2.16.8 40.1.114711.3.579.2.462 Unknown [id number] 2.16.8 40.1.467314.3.579.2.462 Unknown [id number] 2.16.8 40.1.547788.3.579.2.462 Unknown [id number] 2.16.8 40.1.813875.3.579.2.462 Unknown [id number] 2.16.8 40.1.890592.3.579.2.462 Unknown [id number] 2.16.8 40.1.718622.3.579.2.462 Unknown [id number] 2.16.8 40.1.181697.3.579.2.462 Social History Date Type Detail Facility Start: 12-17-2016 End: 12-02-2024 Tobacco smoking status NHIS Former smoker [facility] Start: 12-17-2016 End: 10-09-2020 Cigarettes smoked current (pack per day) - Reported [facility] Work Phone: Start: 1945 Sex Assigned At Not on file O [facility] Work Phone: Start: 12-17-2016 End: 10-09-2020 Tobacco use and exposure Never used [facility] Start: 12-17-2016 End: 01-10-2021 Alcohol intake Current non-drinker of alcohol (finding) [facility] Start: 03-10-2016 Tobacco Comment quit 25+ yrs ago [facility] Exposure to SARS-CoV -2 (event) Not sure [facility] Start: 08-01-2021 End: 12-21-2022 Tobacco smoking status NHIS Unknown if ever smoked [facility] Start: 01-12-2020 None [facility] Start: 01-12-2020 Spouse/ Signif icant Other [facility] Start: 11-18-2020 Non-smoker [facility] Start: 1945 Sex Assigned At Male W [facility] Start: 07-13-2024 End: 08-08-2024 Sex Male (finding) [facility] Medical Equipment Procedure Code Equipment Code Equipment Origin al Text Equipment Identifier Dates Stent 3.50 X 23 [facility] Xpedition Rx - [id number] FDA Start: 01-04-2015 [id number] [id number] FDA Start: 08-31-2022 [id number] [id number] FDA Start: 08-31-2022 ()[id number] 0)[id number] FDA Start: 11-27-2024 ([id number] 0)[id number] FDA Start: 11-30-2024 ()[id number] 0)[id number] FDA Start: 11-30-2024 Goals Date Patient Goal Desired Activity /State Functional Status Date Assessment Result Facility 12-02-2024 Functional status Bedrest [facility] Work Phone: 11-28-2024 Functional status Ambulates [facility] Work Phone: 11-27-2024 Functional status Dangle Feet [facility] Work Phone: 09-21-2022 Functional status Chair [facility] Work Phone: 09-20-2022 Functional status Assistive Ning lauro Rolling Walker [facility] Work Phone: 09-01-2022 Functional status Activity Ability Indepe ndent [facility] Work Phone: 08-31-2022 Functional status Ambulates [facility] Work Phone: Mental Status Date Assessment Result Facility 12-02-2024 Cognitive function Voice/Name [facility] Work Phone: 12-02-2024 Cognitive function Voice/Name [facility] Work Phone: 11-28-2024 Cognitive function Voice/Name [facility] Work Phone: 07-28-2025 Cognitive function Voice/Name [facility] Work Phone: 09-21-2022 Cognitive function Voice/Name [facility] Work Phone: 09-01-2022 Cognitive function Appropriate;Cooperativ e [facility] Work Phone: 11-16-2021 Cognitive function Voice/Name [facility] Work Phone: 06-10-2021 Cognitive function Level Of Cons ciousness Awake;Alert;Appropriate [facility] Work Phone: Clinical Notes 06-25-2020 to 12-02-2024 Note Date & Type Note Facility 12-02-2024 Consult note Note Date/Time December 02, 2024 12:23pm [facility] Medical Records Department [address] [place] [address] Consultation - Neurology 12/02/24 1207 MR#: [id number] Acct: [id number] Name: ERIBERTO RICO Rep #:[id number] : 1945 79 From: Jamar Hooker PCP: Dr. Marycarmen Rodriguez, DO Status:ADM IN Location: [place] [address] Assessment and Plan: Neuro Assessment/Plan ERIBERTO RICO [...] questions or concerns. Stroke to sign off. [facility] Medical History (Updated 12/01/24 @ 09:47 [...] kidney disease, stage 3 Atherosclerotic heart disease [place] coronary artery w/angina pectoris Type 2 diabetes [...] 78.9 H, Lymph % (Auto) 7.6 L, [place] % (Auto) 12.0 H, Eos % (Auto) [...] abnormality. 2. Age-related senescent changes. Reading Location: [facility] Active Medications Active Medications Active Medications: Current [...] mls @ 15 mls/hr 11/30/24 17:25 IV .[id number] PRN Saline Flush Sodium Chloride 250 mls @ 15 mls/hr 11/30/24 17:25 IV .[id number] PRN Additional IVPB Infusion Insulin Human Lispro 0 unit 11/30/24 22:00 12/02/24 06:30 Insulin Lispro 100 Unit/Ml Insuln.Pen SC Not Given ACHS [facility] Protocol Labetalol HCl 10 - 20 mg [...] 10:00 Metolazone 2.5 Mg Tablet PO DAILY [facility] Protocol Metoprolol Succinate 25 mg 12/01/24 10:00 [...] Glucerna Shake 120 Ml Liquid PO TIDCM [facility] Ondansetron HCl 4 mg 11/30/24 17:08 12/01/24 [...] or with change in RN caregiver Freq: [id number] Protocol: Activity Type Activity Date Activity User E-sign Co-sign Detail Recorded Client Recorded Date Recorded By Document 12/01/24 20:15 CD [id number] 12/01/24 20:28 CD 12/01/24 20:15 [facility] Stroke [...] and with change in RN caregiver. Freq: [id number] Protocol: Activity Type Activity Date Activity User E-sign Co-sign Detail Recorded Client Recorded Date Recorded By Document 12/02/24 10:00 TSTIKA [id number] 12/02/24 10:20 TSTIKA 12/02/24 10:00 [facility] Stroke [...] Hay MD; Dr. Marycarmen Rodriguez, DO~ Signed [facility] Work Phone: 1(216) 595-913208-02-2025 Discharge summary Author Rasheed Canela [facility] Note Date/Time December 02, 2024 8:5 3pm [facility] Medical Records Department [address] [place] [address] Emergency Department Summary 12/02/24 MR#: [id number] Acct: [id number] Name: ERIBERTO RICO Rep #:[id number] : 1945 79 From: Rasheed Canela MD PCP: Dr. Marycarmen Rodriguez DO Status:ADM IN Location: ICU ICU02-1 HPI History [...] EKG changes consistent with a ST elevation NC. He had 3 to 4 mm of [...] Prior Similar Symptoms: Yes and With Prior NC CVD Risk Factors: Positive for Hypertension, Diabetes and Hypercholesterolemia [facility] Medical History Anemia Diabetes mellitus Chronic kidney [...] kidney disease, stage 3 Atherosclerotic heart disease [place] coronary artery w/angina pectoris Type 2 diabetes [...] 650 mg PO Q6H PRN Pain 1-1 010/12/23 Unknown History glimepiride 4 mg tablet 4 [...] His assessment by Dr. Dickey on all 3 November 30 was reviewed. Spoke with Dr. Simpson the self pay representative. He was made aware of patient's history, EKG findings and prehospital treatment. Lab Data Attestation: I reviewed the patient's lab results. Lab results narrative: EKG was not repeated since prehospital EKG revealed ST elevation NC with reciprocal changes. CBC reveals mild anemia [...] 76.7 H Lymph % (Auto) 8.9 L [place] % (Auto) 12.7 H Eos % (Auto) [...] healthcare provider: Hospitalist (Dr. Alex Handley) and Formula Room Worker (navigation teacher) Critical Care Time Critical Care Time: Yes Critical care time (excluding procedures): 30-74 minutes (15), Including time spent: (History, physical, documentation, prehospital med direction, discussion with , review of prior records and independent rotation of EKG), Discussing w/Patient &/or Family/Spinning Lathe Operator Automatic (Spoke with who informing that he just left the hospital this afternoon to attend his granddaughter's wedding.), Discussing w/Consultants (navigation teacher and hospitalist) and Arranging Admission or Transfer Discharge Plan Dx/Rx/DC Orders Clinical Impression: Acute ST elevation myocardial infarction (STEMI) of inferior wall, Obstructive sleep apnea, Obesity, Chronic kidney disease, Diabetes mellitus, Hyperlipidemia Disposition Disposition: Acute Care Hospital [facility] What to do if you have Problems For any increased pain, shortness of breath, bleeding, nausea or vomiting, chestpain, or any unexpected problems, contact your Primary Care Provider. Call [facility] ([phone]) or report to the closest Emergency Room. Call 911 if necessary. 12/02/242052 <Electronically signed by Rasheed Canela MD> Cosigner Signature (if applicable): CC: Dr. Marycarmen Rodriguez, DO ~ Signed [facility] Work Phone: 1(925) 795-789508-02-2025 Hospital Discharge instructionsAdditional Instructions 1. It is very important to not miss any doses of your ticagrelor (Brilinta) and aspirin. Please take these as prescribed with no missed doses. If you miss doses you could clot off your stents. Date of Discharge: 12/02/24[facility] Work Phone: 1(227) 449-838108-02-2025 [facility]08-01-2025 Progress note Author Abraham Ridley [facility] Note Date/Time December 01, 2024 8:2 6pm [facility] Medical Records Department [address] [place] [address] Progress Note - Hospitalist 12/01/242020 MR#: [id number] Acct: [id number] Name: ERIBERTO RICO Rep #:[id number] : 1945 79 From: Abraham inman DO PCP: Dr. Marycarmen Rodriguez, DO Status:ADM IN Location: [place] [address] Hospitalist Note Stroke alert called around 7 PM. Last known well 6:55 PM. Patient reported to [facility] that he had left facial numbness [...] Cosigner Signature (if applicable): CC: ~ Signed [facility] Work Phone: 1(416) 378-498508-01-2025 Radiology Diagnostic study [facility]08-01-2025 Progress note Author Nickie Danielson [facility] Note Date/Time December 01, 2024 3:5 0pm [facility] Medical Records Department [address] [place] [address] Progress Note - Hospitalist 12/01/24712 MR#: [id number] Acct: [id number] Name: ERIBERTO RICO Rep #:[id number] : 1945 79 From: Nickie Danielson DO PCP: Dr. Marycarmen Rodriguez, DO Status:ADM IN Location: [place] [address] Reason for Visit Chief Complaint: STEMI Subjective [...] 80.9 H, Lymph % (Auto) 10.1 L, [place] % (Auto) 7.7, Eos % (Auto) 0.4, Baso % (Auto) 0.2, Absolute Neuts (auto) 15.5 H, Absolute Lymphs (auto) 1.93, Nucleated RBC % 0.1, PT 16.1 H, INR 1.3, APTT 112.9 H*, Sodium 135, Potassium 4.4, Chloride 98, Carbon Enrhvlr17.3 L, Anion Gap 19 H, BUN 45 [...] evidence of acute pulmonary disease. Reading Location: [facility] Physical Exam Const alert, oriented x3, [...] subcu heparin Charges/Coding Visit Charges Inpatient E&M: 77297 [facility] Hosp L2 12/01/24 2461 <Electronically signed by Nickie Danielson DO> Cosigner Signature (if applicable): CC: ~ Signed [facility] Work Phone: 1(932) 348-600608-01-2025 Progress note Author Marcin Araujo [facility] Note Date/Time December 01, 2024 7:3 7am [facility] Medical Records Department [address] [place] [address] Progress Note - Cardiology 12/01/24 0734 MR#: [id number] Acct: [id number] Name: ERIBERTO RICO Rep #:[id number] : [...] 80.9 H, Lymph % (Auto) 10.1 L, [place] % (Auto) 7.7, Eos % (Auto) 0.4, Baso % (Auto) 0.2, Absolute Neuts (auto) 15.5 H, Absolute Lymphs (auto) 1.93, Nucleated RBC % 0.1, PT 16.1 H, INR 1.3, APTT 112.9 H*, Sodium 135, Potassium 4.4, Chloride 98, Carbon Lvwlkzk73.3 L, Anion Gap 19 H, BUN 45 [...] 80.9 H, Lymph % (Auto) 10.1 L, [place] % (Auto) 7.7, Eos % (Auto) 0.4, [...] evidence of acute pulmonary disease. Reading Location: [facility] Physical Exam Const alert, oriented x3 [...] Cosigner Signature (if applicable): CC: ~ Signed [facility] Work Phone: 1(604) 632-833707-31-2025 Discharge summary Author Isael Bernabe [facility] Note Date/Time November 30, 2024 9:35 pm [facility] Medical Records Department [address] [place] [address] Emergency Department Summary 11/30/24 MR#: [id number] Acct: [id number] Name: ERIBERTO RICO Rep #:[id number] : [...] was sent, they administeredaspirin, Brilinta, and heparin. [facility] Medical History Diabetes mellitus Chronic kidney [...] kidney disease, stage 3 Atherosclerotic heart disease [place] coronary artery w/angina pectoris Type 2 diabetes [...] laboratory work that was requested by the [facility]. Does not have elevation of his white [...] 80.9 H Lymph % (Auto) 10.1 L [place] % (Auto) 7.7 Eos % (Auto) 0.4 [...] (STEMI) myocardial infarction Disposition Disposition: Acute Care [facility] Discharge Date/Time: 11/30/24 15:21 What to do if you have Problems For any increased pain, shortness of breath, bleeding, nausea or vomiting, chestpain, or any unexpected problems, contact your Primary Care Provider. Call [facility] ([phone]) or report to the closest Emergency Room. Call 911 if necessary. 11/30/242134 <Electronically signed by Isael Bernabe MD> Cosigner Signature (if applicable): CC: Dr. Marycarmen Rodriguez, DO ~ Signed [facility] Work Phone: 1(315) 720-704507-31-2025 Progress note Author Isael Bernabe [facility] Note Date/Time November 30, 2024 9:33 pm [facility] Medical Records Department [address] [facility] [place] [address] Quality Report 11/30/241604 MR#: [id number] Acct: [id number] Name: ERIBERTO RICO Rep #:[id number] : [...] applicable): Date Donald Bill CC: ~ Signed [facility] Work Phone: 1(217) 971-151807-31-2025 History and physical note Author Abraham Ridley [facility] Note Date/Time November 30, 2024 9:30 pm [facility] Medical Records Department [address] [place] [address] H&P Exam - Hospitalist 11/30/24 1705 MR#: [id number] Acct: [id number] Name: ERIBERTO RICO Rep #:[id number] : 1945 79 From: Abraham inman DO PCP: Dr. Marycarmen Rodriguez, DO Status:ADM IN Location: ICU CVICU20 3-1 HPI - General General Date of Admission: 11/30/24 Date of Service: 11/30/24 Chief Complaint: STEMI HPI Narrative ERIBERTO RICO, is a 79 M who presented to [facility] on 11/30/2024 as a STEMI alert. Follows with [facility] with complex CAD history, see office [...] STEMI. He was taken emergently to the [facility] and coronary angiography revealed a subacute stent [...] room air. No other acute concerns currently. [facility] Medical History Diabetes mellitus Chronic kidney [...] kidney disease, stage 3 Atherosclerotic heart disease [place] coronary artery w/angina pectoris Type 2 diabetes [...] 80.9 H, Lymph % (Auto) 10.1 L, [place] % (Auto) 7.7, Eos % (Auto) 0.4, [...] Patient is a 79-year-old male who presented [facility] ED on 11/30/2024 as a STEMI [...] with hyperglycemia: Blood glucose 328 on admit. XccbO0u from 2022 was 7.7%. Repeat A1c ordered. [...] 75 minutes. Charges/Coding Visit Charges Inpatient E&M: 37878 Init Hosp L3 11/30/242129 <Electronically signed by Abraham Ridley DO> Cosigner Signature (if applicable): CC: Dr. Abraham Ridley DO; Dr. Marycarmen Rodriguez DO~ Signed [facility] Work Phone: 1(963) 672-293207-31-2025 Radiology Diagnostic study [facility]2025 Consult note Author Jose Hay [facility] Note Date/Time November 30, 2024 4:51 pm [facility] Medical Records Department [address] [place] [address] Consultation - Cardiology 11/30/24 1642 MR#: [id number] Acct: [id number] Name: ERIBERTO RICO Rep #:[id number] : [...] infarction. Subsequently a STEMI alert was called. [facility] Medical History (Updated 11/30/24 @ 16:48 [...] kidney disease, stage 3 Atherosclerotic heart disease [place] coronary artery w/angina pectoris Type 2 diabetes [...] 80.9 H, Lymph % (Auto) 10.1 L, [place] % (Auto) 7.7, Eos % (Auto) 0.4, [...] 80.9 H, Lymph % (Auto) 10.1 L, [place] % (Auto) 7.7, Eos % (Auto) 0.4, [...] Hay MD; Dr. Marycarmen Rodriguez DO~ Signed [facility] Work Phone: 1(118) 371-277007-29-2025 Consult note Author Cyndie Frye [facility] Note Date/Time November 28, 2024 12:2 8pm [facility] Medical Records Department [address] [facility] [place] [address] Counseling Note - Pharmacy 11/28/24 0938 MR#: [id number] Acct: [id number] Name: ERIBERTO RICO Rep #:[id number] : 1945 79 From: Cyndie Frye PCP: Dr. Marycarmen Rodriguez, DO Status:ADM EDMUND Y Location: [place] [address] Pharmacy HI Med Reconciliation Pharmacy Service has performed discharge [...] Signature (if applicable): Date CC: ~ Signed [facility] Work Phone: 1(530) 629-177907-28-2025 Discharge summary Author Jose Hay [facility] Note Date/Time November 27, 2024 11:3 5am [facility] Medical Records Department [address] [place] [address] Instructions for Home/Discharge Instructions 11/27/24 1128 MR#: [id number] Acct: [id number] Name: ERIBERTO RICO Rep #:[id number] : [...] Care Provider: Marycarmen Rodriguez Instructions Print Language: Tajik Discharge Orders/Prescriptions Prescriptions: New furosemide 80 mg [...] MD>Jose Hay MD CC: Dr. Marycarmen Rodriguez, ~ Signed [facility] Work Phone: 1(674) 222-117307-27-2025 Radiology Diagnostic study [facility]07-27-2025 Radiology Diagnostic study [facility]07-27-2025 Radiology Diagnostic study [facility] 11-26-2024 Radiology Diagnostic study [facility]07-27-2025 Radiology Diagnostic study [facility]07-27-2025 Radiology Diagnostic study [facility]07-27-2025 Discharge summary Author Isael Bernabe [facility] Note Date/Time November 26, 2024 9:41 pm [facility] Medical Records Department [address] [place] [address] Emergency Department Summary 11/26/24 MR#: [id number] Acct: [id number] Name: ERIBERTO RICO Rep #:[id number] : [...] an outpatient tomorrow. He was at a green party today, walking down the steps of [...] presents status post fall with chest heaviness. [facility] Medical History Shortness of breath Unstable [...] kidney disease, stage 3 Atherosclerotic heart disease [place] coronary artery w/angina pectoris Type 2 diabetes [...] cleansed and dressed. He was given 1 Osceola which he usually takes at home for pain. He was able to ambulate without difficulty. At this point in time, he is motivated for discharge. I do not feel that he requires admission at this time or observation. I feel he can be discharged to follow-upwith his cardiac catheterization tomorrow morning. Patient will continue his Osceola at home and follow-up as previously directed. [...] 71.8 H Lymph % (Auto) 16.7 L [place] % (Auto) 9.5 Eos % (Auto) 1.3 [...] IMPRESSION: No acute intracranial process. Reading Location: [facility] Cervical Spine CT 11/26/24 18:03 IMPRESSION: No acute compression deformity, fracture, or subluxation. Moderate multilevel degenerative changes of the cervical spine. Cervical ACDF with interbody spacers spanning C4-C6 without hardware complications. Reading Location: [facility] Chest X-Ray 11/26/24 18:03 IMPRESSION: Negative for edema Reading Location: [facility] Knee X-Ray 11/26/24 18:03 IMPRESSION: Degenerative changes without fracture [facility] Hand X-Ray 11/26/24 18:07 IMPRESSION: Degenerative changes. No visible fracture. Reading Location: [facility] Knee X-Ray 11/26/24 18:07 IMPRESSION: Joint effusion Reading [facility] Management Discussion w/another healthcare provider: Formula Room Worker (Dr. Araujo) Discharge Plan Triage Chief Complaint: [...] with new or worsening symptoms. Print Language: Tajik Disposition Disposition: Home, Self Care What to do if you have Problems For any increased pain, shortness of breath, bleeding, nausea or vomiting, chestpain, or any unexpected problems, contact your Primary Care Provider. Call [facility] ([phone]) or report to the closest Emergency Room. Call 911 if necessary. 11/26/242140 <Electronically signed by Isael Bernabe MD> Cosigner Signature (if applicable): CC: Dr. Marycarmen Rodriguez DO ~ Signed [facility] Work Phone: 1(991) 382-586807-27-2025 Hospital Discharge instructionsAdditional Instructions Have your cardiac catheterization performed tomorrow as scheduled at 8:30 in the morning. Return with new or worsening symptoms.[facility] Work Phone: 1(313) 727-526807-24-2025 Radiology Diagnostic study [facility]07-21-2025 Radiology Diagnostic study [facility]05-21-2025 Evaluation note* Diagnosis Onset Date Resolution Status Admit Date COPD (chronic obstructive pulmonary disease) chronic September 20 10:13am Diastolic heart failure chronic [facility] 2024 10:13am Obesity chronic September 20, 2024 10:13am Obstructive sleep apnea chronic [facility] 2024 10:13am Shortness of breath acute October 25, 2024 7:54am Bilateral lower extremity edema 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 [facility] October 25, 2024 7:54am Chest pain chronic October 25 7:54am Chronic kidney disease, stage 3 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 [place] October 25, 2024 7:54am Coronary artery [...] Obstructive sleep apnea chronic J 2024 10:00am [facility] Work Phone: 1([phone]) 621-264905-21-2025 Evaluation note* Diagnosis Onset Date Resolution Status Admit Date COPD (chronic obstructive pulmonary disease) chronic September 20 10:13am Diastolic heart failure chronic M ay 2024 10:13am Obesity chronic September 20, 2024 10:13am Obstructive sleep apnea chronic M ay 2024 10:13am Shortness of breath acute October 25, 2024 7:54am Bilateral lower extremity edema 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 [place] October 25, 2024 7:54am Chest pain chronic October 25 7:54am Chronic kidney disease, stage 3 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 [place] October 25, 2024 7:54am Coronary artery [...] 22, 2024 10:53am Bilateral lower extremity edema 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 [place] November 22, 2024 10:53am Chest pain chronic November 22 10:53am Chronic kidney disease, stage 3 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 [place] November 22, 2024 10:53am Essential hypertension chronic Ju 2024 10:53am Hyperlipidemia chronic November 22, 2024 10:53am Obesity chronic November 22 10:53am Type 2 diabetes mellitus wit hout complications chronic November 22, 2024 10:53am [facility] Work Phone: 1([phone]) 400-975905-21-2025 Evaluation note* Diagnosis Onset Date Resolution Status Admit Date COPD (chronic obstructive pulmonary disease) chronic September 20 10:13am Diastolic heart failure chronic M ay 2024 10:13am Obesity chronic September 20, 2024 10:13am Obstructive sleep apnea chronic M ay 2024 10:13am Shortness of breath acute October 25, 2024 7:54am Bilateral lower extremity edema 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 [place] October 25, 2024 7:54am Chest pain chronic October 25 7:54am Chronic kidney disease, stage 3 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 [place] October 25, 2024 7:54am Coronary artery [...] 22, 2024 10:53am Bilateral lower extremity edema 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 [place] November 22, 2024 10:53am Chest pain chronic November 22 10:53am Chronic kidney disease, stage 3 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 [place] November 22, 2024 10:53am Essential hypertension [...] 2024 4:59pm Chronic kidney disease, stage 3 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 [place] November 30, 2024 4:59pm Coronary artery disease chronic J shannon 2024 4:59pm Dyslipidemia chronic November 30, 4:59pm Essential hypertension chronic Ju ly 2024 4:59pm [facility] Work Phone: 1(871) 969-219405-21-2025 Evaluation note* Diagnosis Onset Date Resolution Status [...] Essential hypertension chronic Ju ly 2024 4:59pm [facility] Work Phone: 1(950) 801-304305-21-2025 Evaluation note* Diagnosis Onset Date Resolution Status [...] November 302024 4:59pm Leukocytosis acute November 30 025 4:59pm STEMI (ST elevation myocardial infarction) November 30, 2024 acute October 4:59pm Chest pain chronic November 30 4:59pm Chronic kidney disease chronic Ju ly 2024 4:59pm Chronic kidney disease, stag e 3 chronic November 30, 2024 4:59pm Coronary artery disease chronic J shannon2024 4:59pm Dyslipidemia chronic November 30 025 4:59pm Essential hypertension chronic Ju ly 2024 4:59pm Acute ST elevation myocardia l infarction (STEMI) of inferior wall acute December 02, 2024 8:29pm Diabetes mellitus acute December 02, 2024 8:29pm Chronic kidney disease chronic Au 2024 8:29pm Hyperlipidemia chronic December 8:29pm Obesity chronic December 02 8:29pm Obstructive sleep apnea chronic A ugust 2024 8:29pm [facility] Work Phone: 1(919) 115-947503-18-2025 [facility] [address] [place] [address] MR#: [id number] Acct: [id number] Name: ERIBERTO RICO Rep #:[id number] : 1945 78 From: Zen East DO Referring Dr: Marni Horn 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-C Status: REG CLI Location: PSN Date: Sex: M C PSN 6 Minute Walk Test 6 Minute Walk Test 6 Minute Walk Test: 6 Minute Walk Test PSN:6-Minute Walk Test Start: 07/18/24 06:38 Freq: Status: Active Protocol: RESP.6MINW Document 07/18/24 06:00 [facility] (Rec: 07/18/24 06:47 [facility] [id number]) 6 Minute Walk Test Date Performed 07/18/24 Time Performed 06:00 Height 5 ft 9 in Weight: 230 lb Weight in Pounds 230.[address]: Marni Horn 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 Assistive device Cane used: Pre-test Oxygen Delivery [...] ~ Date Dictated: 07/18/24 1032 Date Transcribed: 07/18/241031 Marketing Administrative Assistant: Dr. 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 [place] October 25, 2024 7:54am Coronary artery disease chronic J 2024 7:54am Essential hypertension chronic Ju 2024 7:54am Hyperlipidemia chronic October 25, 2024 7:54am Obesity chronic October 25 7:54am Type 2 diabetes mellitus wit hout complications chronic October 25, 2024 7:54am Chest pain inactive October 25 7:54am [facility] Work Phone: 1([phone]) 608-452403-03-2025 Evaluation note* Diagnosis Onset Date Resolution Status [...] 25, 2024 7:54am Bilateral lower extremity edema 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 [place] October 25, 2024 7:54am Chest pain chronic October 25 7:54am Chronic kidney disease, stage 3 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 [place] October 25, 2024 7:54am Coronary artery disease chronic J une 2024 7:54am Essential hypertension chronic Ju ne 2024 7:54am Hyperlipidemia chronic October 25, 2024 7:54am Obesity chronic October 25 7:54am Type 2 diabetes mellitus wit hout complications chronic October 25, 2024 7:54am [facility] Work Phone: 1([phone]) 923-463703-03-2025 Evaluation note* Diagnosis Onset Date Resolution Status [...] 25, 2024 7:54am Bilateral lower extremity edema 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 [place] October 25, 2024 7:54am Chest pain chronic October 25 7:54am Chronic kidney disease, stage 3 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 [place] October 25, 2024 7:54am Coronary artery [...] sleep apnea chronic J shannon 2024 10:00am [facility] Work Phone: 1(193) 152-917203-03-2025 Evaluation note* Diagnosis Onset Date Resolution Status [...] 25, 2024 7:54am Bilateral lower extremity edema 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 [place] October 25, 2024 7:54am Chest pain chronic October 25 7:54am Chronic kidney disease, stage 3 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 [place] October 25, 2024 7:54am Coronary artery [...] sleep apnea chronic J shannon 2024 10:00am [facility] Work Phone: 1(318) 588-966712-16-2024 Evaluation note* Diagnosis Onset Date Resolution Status Admit Date DEAN (dyspnea on exertion) acute April 17, 2024 3:51pm Bilateral lower extremity edema 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 [place] April 17, 2024 3:51pm Chronic kidney disease, stage 3 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 [place] April 17, 2024 3:51pm Coronary artery [...] sleep apnea chronic M arch 2024 1:10pm [facility] Work Phone: 1(152) 914-362111-18-2024 Evaluation note* Diagnosis Onset Date Resolution Status Admit Date Bilateral lower extremity edema 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 [place] March 20, 2024 10:31am Chronic kidney disease, stage 3 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 [place] March 20, 2024 10:31am Coronary artery disease chronic N ovember 2023 10:31am Essential hypertension chronic No vember 2023 10:31am Hyperlipidemia chronic March 032023 10:31am Obesity chronic March 20, 2024 10:31am Type 2 diabetes mellitus without complications chronic March 032023 10:31am DEAN (dyspnea on exertion) acute April 17, 2024 3:51pm Bilateral lower extremity edema 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 Hay [facility] September 01, 2022 9:55am Note Date/Time September 01, 2022 8:37am [facility] Medical Records Department [address] [place] [address] Instructions for Home/Discharge Instructions 09/01/22 0835 MR#: [id number] Acct: [id number] Name: ERIBERTO RICO Rep #:[id number] : [...] CC: Dr. Marycarmen Rodriguez DO ~ Signed [facility] Work Phone: 1([phone]) 241-523308-26-2021 Miscellaneous Notes* Assessment & Plan Note - [...] with any necessary intervention. documented in this [id number] History of Present illness Narrative* Eladio Ingram [...] patient is not nervous/anxious. documented in this [id number] Miscellaneous Notes* Assessment & Plan Note - Fernanda Acuña CNP - 10/09/2020 11:44 AM EDT Associated Problem(s): Coronary artery disease involving [place] coronary artery of [place] heart without angina pectoris Multiple previous cardiac catheterizations with intervention. Most recent cardiac caths were performed in 2018, August 03 at [facility], and August 18 at [facility] in [place]. 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 The notes from the cath at [facility] indicate that they were able to get [...] intolerance, and chest pressure. documented in this [id number] History of Present illness Narrative* Fernanda Acuña CNP - 10/09/2020 11:19 AM EDT [facility] [address] [facility] OFFICE [address] [facility] [id number] Assessment & Plan: Hypertension Blood pressure mildly [...] without CPAP use. Coronary artery disease involving [place] coronary artery of [place] heart without angina pectoris Multiple previous cardiac catheterizations with intervention. Most recent cardiac caths were performed in 2018, August 03 at [facility], and August 18 at [facility] in [place]. 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 The notes from the cath at [facility] indicate that they were able to get [...] re-establish care. He has been following at [facility] and [facility] for his cardiology care over the past 4 years. 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 Eriberto has long-standing coronary artery disease and his history is primarily obtained through records from [facility]. Eriberto is uncertain of many of the dates related to multiple tests and interventions he has had in the past 3 years. Eriberto states that he has noticed an increase in exercise intolerance over the past 3-4 weeks. 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 and became quite short of [...] Diagnosis Date Coronary artery disease Diabetes mellitus ([facility]) Diastolic CHF ([facility]) Hyperlipidemia Hypertension Lower leg edema Myocardial infarction ([facility]) 2008 Peripheral vascular disease ([facility]) Sleep apnea Stroke ([facility]) Testicle swelling Past Surgical History: Procedure Laterality Date CARDIAC CATHETERIZATION N/A 01/04/2015 Left Heart Cath,Stent, EF 60%; Eladio Ingram MD; [facility] [employer] 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 CARDIAC CATHETERIZATION N/A 01/28/2015 Left Heart Cath, EF 60%; Eladio Ingram MD; [facility] [employer] 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 CARDIAC CATHETERIZATION N/A 06/18/2015 Left Heart Cath, Right Upper Extremity Angiogram, EF 60%; Eladio Ingram MD; [facility] [employer] 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 CARDIAC CATHETERIZATION N/A 03/17/2016 Procedure: Left and Right Heart Cath Poss Stent; Surgeon: Eladio Ingram MD; Location: [facility] [employer] 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; Service: CARDIAC CATHETERIZATION 03/22/2014 EF 60% CARDIAC CATHETERIZATION 06/29/2013 EF 60% CARDIAC CATHETERIZATION 09/08/2012 EF 55% CARDIAC CATHETERIZATION 03/22/2014 EF 60% CARDIAC CATHETERIZATION Right 10/15/2016 Procedure: Left Heart Cath Possible PTCA/Stent; Surgeon: Merritt Arthur MD; Location: [facility]; Service: CHOLECYSTECTOMY CORONARY ANGIOPLASTY WITH STENT [...] ectopy, no acute changes. 50 minutes spent [id number] with patient Follow Up Ordered: Return for [...] patient is not nervous/anxious. documented in this [id number] NotePatient Outreach ([facility]OV[facility]) ERIBERTO RICO ([id number]) 1945 M Date Time Provider Department 06/25/20 PETRONA TELLES During your visit today, we recorded the following information about you: Allergies As of Date: 06/25/2020 (No Known Allergies) Date Reviewed: 08/19/2018 Reviewed by: Moise (Rn) ALEX Mcgraw - Fully Assessed Order(s):SARS-COVID VACCINE 1ST DOSE APPT [[id number]] Order #: [id number] FUTURE Prescriptions as of 06/25/2020 Sig: CLOPIDOGREL [...] (HCC) [N17.9] 08/15/2018 Coronary artery disease involving [place] smith*08/15/2018 Stented coronary artery [Z95.5] 08/15/2018 Letter Text Encounter Status:Closed by LANDON PRODUSER on 06/28/20[facility] Consult note Author Jose Hay [facility] Note Date/Time November 30, 2024 4:51 pm [facility] Medical Records Department [address] [place] [address] Consultation - Cardiology 11/30/24 1642 MR#: [id number] Acct: [id number] Name: ERIBERTO RICO Rep #:[id number] : [...] infarction. Subsequently a STEMI alert was called. [facility] Medical History (Updated 11/30/24 @ 16:48 [...] kidney disease, stage 3 Atherosclerotic heart disease [place] coronary artery w/angina pectoris Type 2 diabetes [...] 80.9 H, Lymph % (Auto) 10.1 L, [place] % (Auto) 7.7, Eos % (Auto) 0.4, [...] 80.9 H, Lymph % (Auto) 10.1 L, [place] % (Auto) 7.7, Eos % (Auto) 0.4, [...] Hay MD; Dr. Marycarmen Rodriguez DO~ Signed [facility] Work Phone: Discharge summary Author Nickie Danielson [facility] Note Date/Time December 02, 2024 2:2 7pm [facility] Medical Records Department [address] [place] [address] Discharge Summary 12/02/24 1336 MR#: [id number] Acct: [id number] Name: ERIBERTO RICO Rep #:[id number] : 1945 79 From: Nickie Danielson DO PCP: Dr. Marycarmen Rodriguez DO Status:ADM IN [facility] Prov[facility] Date of Admission: 11/30/24 Date of Discharge: 12/02/24 Primary Care Physician: Dr. Marycarmen Rodriguez, Consultations 12/01/24 20:19 Consult: Tele-Neurology Routine Consulting [...] [facility] as a STEMI alert. [...] inferior wall. He was taken emergency to [facility] and cardiac catheterization revealed subacute stent thrombosis [...] 78.9 H, Lymph % (Auto) 7.6 L, [place] % (Auto) 12.0 H, Eos % (Auto) [...] abnormality. 2. Age-related senescent changes. Reading Location: [id number] D/C Instructions Discharge Activity: Return to Normal [...] Kale at discharge?: Yes Done w/ Acute NC measure.: Yes Documented LVEF (%): 50 Discharge Plan Admission Admit Date/Time: 11/30/24 16:59 Primary Reason for Your Visit: Chest pain Attending Provider: Nickie Danielson Primary Care Provider: Marycarmen Rodriguez Consulting Providers: Abraham Ridley; Elvis Olvera; Sangeeta Negro; Faye Kingsley; Petrona Vargas; Candice Barlow; Diogenes Sheehan; Cari Shultz; Sherman Rouse; Seymour John; Jamar Tapia; Chrissy Mccallum; Fletcher Good; Sarah Beth Candelaria; Jody Kwon; Fermin José; Min Rogers; Nick Bernard; [...] 650 mg PO Q6H PRN (Reason: Pain 1-10/10) mirtazapine [Remeron] 15 mg tablet 15 mg [...] Self Care Charges/Coding Visit Charges Inpatient E&M: 87669 Disch Hosp >30min 12/02/24 1427 <Electronically signed by Nickie Danielson DO> Cosigner Signature (if applicable): CC: Dr. Jose Hay MD; Dr. Nickie Danielson DO; Dr. Marycarmen Rodriguez DO~ Signed [facility] Work Phone: Evaluation note* Diagnosis Shortness of breath- Primary [facility] Diagnosis DEAN (dyspnea on exertion)- Primary Other dyspnea and respiratory abnormality [facility] Diagnosis DEAN (dyspnea on exertion) Other dyspnea and respiratory abnormality Essential hypertension Unspecified essential hypertension Type 2 diabetes mellitus without complication, without long-term current use of insulin (HCC) MATTHEW (obstructive sleep apnea) Obstructive sleep apnea (adult) (pediatric) Coronary artery disease involving [place] coronary artery of [place] heart without angina pectoris [facility] Shortness [facility] breath [facility] Diagnosis Essential hypertension- Primary Unspecified essential hypertension Atherosclerosis of [place] coronary artery with angina pectoris, unspecified whether [place] or transplanted heart (HCC) Mixed hyperlipidemia [facility] Diagnosis Chest pain, unspecified type- Primary [facility] Diagnosis Coronary artery disease involving [place] coronary artery of [place] heart with angina pectoris (HCC)- Primary [facility] Diagnosis Onset Date Resolution Status Dizziness acute Atherosclerotic heart diseas e [place] coronary artery w/angina pectoris chronic CHF (congestive heart failure) chronic Essential hypertension chron ic History of coronary artery stent placement August 13, 2017 chronic Hyperlipidemia [facility] Work Phone: evaluation note* Diagnosis Onset Date Resolution Status Dizziness acute Atherosclerotic heart diseas e [place] coronary artery w/angina pectoris chronic CHF (congestive heart failure) chronic Essential hypertension chron ic History of coronary artery stent placement August 13, 2017 chronic Hyperlipidemia chronic Dizziness acute DEAN (dyspnea on exertion) ac inaja Palpitations acute CAD (coronary artery disease) chronic CHF (congestive heart failure) chronic Essential hypertension chron ic Hyperlipidemia [facility] Work Phone: evaluation note* Diagnosis Onset Date Resolution Status Dizziness acute Atherosclerotic heart diseas e [place] coronary artery w/angina pectoris chronic CHF (congestive heart failure) chronic Essential hypertension chron ic History of coronary artery stent placement August 13, 2017 chronic Hyperlipidemia chronic Dizziness acute DEAN (dyspnea on exertion) ac inaja Palpitations acute CAD (coronary artery disease) chronic CHF (congestive heart failure) chronic Essential hypertension chron ic Hyperlipidemia chronic DEAN (dyspnea on exertion) ac inaja CAD (coronary artery disease) chronic CHF (congestive heart failure) chronic Essential hypertension chron ic Hyperlipidemia [facility] Work Phone: evaluation note* Diagnosis Onset Date Resolution Status Dizziness acute DEAN (dyspnea on exertion) ac inaja Palpitations acute CAD (coronary artery disease) chronic CHF (congestive heart failure) chronic Essential hypertension chron ic Hyperlipidemia chronic DEAN (dyspnea on exertion) ac inaja CAD (coronary artery disease) chronic CHF (congestive heart failure) chronic Essential hypertension chron ic Hyperlipidemia chronic [facility] Work Phone: Evaluation note* Diagnosis Onset Date Resolution Status Abnormal PFT acute 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.9) 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 baylee Obstructive sleep apnea 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 baylee COVID-19 acute DEAN (dyspnea on exertion) ac inaja Atherosclerotic heart diseas e [place] coronary artery w/angina pectoris chronic CHF (congestive heart failure) chronic Essential hypertension chron ic History of coronary artery stent placement August 13, 2017 chronic Hyperlipidemia chronic Abnormal PFT acute COVID-19 acute 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.9) 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 baylee Obstructive sleep apnea 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 baylee [facility] Work Phone: Evaluation note* Diagnosis Onset Date Resolution Status COVID-19 acute DEAN (dyspnea on exertion) ac inaja Atherosclerotic heart diseas e [place] coronary artery w/angina pectoris chronic CHF (congestive heart failure) chronic Essential hypertension chron ic History of coronary artery stent placement August 13, 2017 chronic Hyperlipidemia chronic Abnormal PFT acute COVID-19 acute 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.9) 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 baylee Obstructive sleep apnea 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 baylee [facility] Work Phone: Evaluation note* Diagnosis Onset Date Resolution Status Angina pectoris chronic Chronic kidney disease chron ic Coronary artery disease 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 baylee Diabetes mellitus chronic Dyslipidemia chronic Essential hypertension chron ic Obesity [facility] Work Phone: Evaluation note* Diagnosis Onset Date Resolution Status Angina pectoris chronic Chronic kidney disease chron ic Coronary artery disease 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 baylee Diabetes mellitus chronic Dyslipidemia chronic Essential hypertension chron ic Obesity chronic Left-sided weakness acute Chest pain resolved Fatigue acute Syncope acute Coronary artery disease 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 baylee Dyslipidemia chronic Essential hypertension chron ic [facility] Work Phone: Evaluation note* Diagnosis Onset Date Resolution Status Left-sided weakness acute Chest pain resolved Fatigue acute Syncope acute Coronary artery disease 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 baylee Dyslipidemia chronic Essential hypertension chron ic Angina pectoris chronic Bilateral lower extremity edema chronic Chronic kidney disease, stage 3 chronic Coronary artery disease 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 Hay [facility] September 01, 2022 9:53am Note Date/Time September 01, 2022 9:51am [facility] Medical Records Department [address] [place] [address] Progress Note 09/01/22 0950 MR#: [id number] Acct: [id number] Name: ERIBERTO RICO Rep #:[id number] 09 : 1945 77 From: Joes Hay MD PCP: Dr. Marycarmen Rodriguez, DO Status:ADM EDMUND Location: [place] [address] Progress Note Reports complete resolution of angina. Denies any complaints today. Right groin stable. No hematoma or bruit. Right radial pulse 2+. Mildly decreased platelet count noted. Repeat CBC in 2 days. Also repeat complete metabolic panel in 2 days. Discharge home. Follow-up as outpatient. 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 Advance Directives and Living Will [...] Documents on File Type Date Recorded 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 Advance Directives and Livin g Will 10/04/2020 12:00 AM Documents on File Type Date Recorded 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 Advance Directives and Living Will [...] Documents on File Type Date Recorded 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 Advance Directives and Livin g Will 10/15/2020 12:46 PM Documents on File Type Date Recorded 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 Advance Directives and Livin g Will 10/15/2020 12:46 PM Documents on File Type Date Recorded 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 Advance Directives and Livin g [...] Will Yes June 10 4:44pm Power of Executive Chef Assistant Yes June 10, 2021 4:44pm Advance Directive Response Recorded Date/ Time Name of Medical Power of Executive Chef Assistant Jennie- November 16, 2021 1:06pm Advance Directives No August 13, 2 018 7:02am Living Will Yes November 16, 2021 1:06pm Power of Executive Chef Assistant Yes November 16 1:06pm Advance Directive Response Recorded Date/ Time Advance Directives No August 13 018 6:02am Living Will Yes November 16, 2021 12:06pm Power of Executive Chef Assistant Yes November 16 12:06pm Advance Directive Response Recorded Date/ Time Advance Directives No August 13 018 7:02am Living Will Yes November 16, 2021 1:06pm Power of Executive Chef Assistant Yes November 16 1:06pm Advance Directive Response Recorded Date/ Time Advance Directives on File Yes August 312022 7:47am Name of Medical Power of Executive Chef Assistant Mike escalera August 31, 2022 7:47am Advance Directives Yes August 31, 2022 7:47am Living Will Yes August 31, 2022 7: 47am Power of Executive Chef Assistant Yes August 31, 2022 7:47am Advance Directive Response Recorded Date/ Time Advance Directives on File Yes August 312022 7:47am Name of Medical Power of Executive Chef Assistant Mike escalera August 31, 2022 7:47am Advance Directives Yes August 31, 2022 7:47am Living Will No September 18, 2022 1 2:11am Power of Executive Chef Assistant No September 18, 2022 12:11am Advance Directive Response Recorded Date/ Time Advance Directives on File Yes August 312022 7:47am Name of Medical Power of Executive Chef Assistant Mike escalera August 31, 2022 7:47am Advance Directives on File No Augus 2022 7:51am Name of Medical Power of Executive Chef Assistant MIKE RICO December 21, 2022 7:51am Advance Directives Yes December 21, 2022 7:51am Living Will Yes [address], [address] 3 7:51am Power of Executive Chef Assistant Yes December 21 7:51am Advance Directive Response Recorded Date/ Time Advance Directives on File No Augus 2022 7:51am Name of Medical Power of Executive Chef Assistant MIKE RICO December 21, 2022 7:51am Advance Directives Yes December 21, 2022 7:51am Living Will Yes December 21 7:51am Power of Executive Chef Assistant Yes December 21 7:51am Advance Directive Response Recorded Date/ Time Advance Directives Yes December 21, 2022 6:51am Living Will Yes December 21 6:51am Power of Executive Chef Assistant Yes December 21 6:51am Advance Directive Response Recorded Date/ Time Living Will No October 12, 2023 6:54pm Power of Executive Chef Assistant No October 11 6:54pm Advance Directives Yes December 21, 2022 7:51am Advance Directive Response Recorded Date/ Time Advance Directives Yes December 21, 2022 7:51am Advance Directive Response Recorded Date/ Time Do you have a Healthcare Power of Executive Chef Assistant? Yes November 26, 2024 5:44pm Advance Directives Yes December 21, 2022 7:51am Advance Directive Response Recorded Date/ Time Advance Directives on File Yes November 27, 2024 8:44am Living Will Yes November 27, 2024 8:44am Do you have a Healthcare Pow er of Executive Chef Assistant? Yes November 27, 2024 8:44am Name of Medical Power of Executive Chef Assistant Jennie Popeag er- spouse November 27, 2024 8:44am Advance Directives Yes November 27 8:44am Do you have a Healthcare Pow er of Executive Chef Assistant? Yes November 26, 2024 5:44pm Advance Directive Response Recorded Date/ Time Advance Directives on File Yes November 27, 2024 8:44am Living Will Yes November 27, 2024 8:44am Do you have a Healthcare Pow er of Executive Chef Assistant? Yes November 27, 2024 8:44am Name of Medical Power of Executive Chef Assistant Jennie Popeag er- spouse November 27, 2024 8:44am Advance Directives Yes November 27 8:44am Do you have a Healthcare Pow er of Executive Chef Assistant? Yes November 26, 2024 5:44pm Do you have a Healthcare Pow er of Executive Chef Assistant? Yes November 30, 2024 5:22pm Advance Directive Response Recorded Date/ Time Advance Directives on File Yes November 27, 2024 8:44am Living Will Yes November 27, 2024 8:44am Do you have a Healthcare Pow er of Executive Chef Assistant? Yes November 27, 2024 8:44am Name of Medical Power of Executive Chef Assistant Jennie Agarwal er- spouse November 27, 2024 8:44am Advance Directives Yes November 27 8:44am Do you have a Healthcare Pow er of Executive Chef Assistant? Yes November 26, 2024 5:44pm Do you have a Healthcare Pow er of Executive Chef Assistant? Yes November 30, 2024 5:22pm Do you have a Healthcare Pow er of Executive Chef Assistant? Yes December 02, 2024 8:23pm Reason for Referral Status Reason Specialty Diagnoses / Procedures Referred By Contact Referred To Contact New Request Cardiology Diagnoses Shortness of breath Procedures Echocardiogram complete Eladio Ingram MD [address] [address] Status Reason Specialty Diagnoses / Procedures Referred By Contact Referred To Contact Closed Cardiology Diagnoses DEAN (dyspnea on exertion) Procedures ECG 12 lead Fernanda Acuña, INSPECTOR [employer]S [employer] PROCESSES [address] [place] [address] Specialty Diagnoses / Procedures Referred By Contac t Referred To Contact Radiology Diagnoses Coronary artery disease involving [place] coronary artery of [place] heart with angina pectoris (HCC) Procedures CT Angiogram Aorta Chest Abdomen Pelvis Eladio Ingram MD [address] [address] Referral ID Status Reason Start Date Expiration Date V isits Requested Visits Authorized [id number] New Request 01/10/2021 01/10/2022 1 1 Chief Complaint and Reason for Visit Chief Complaint R. LOWER LID LESION RLQ ABD PAIN bleeding from ear, chest pain OVERDUE FOR OV CHEST PAIN CHEST PAIN Reason for Visit Dizziness Atherosclerotic heart disease [place] coronary artery w/angina pectoris CHF (congestive heart failure) Essential hypertension History of coronary artery stent placement Hyperlipidemia Chief Complaint bleeding from ear, c hest pain OVERDUE FOR OV CHEST PAIN CHEST PAIN 6-8 WK F/U DYSPNEA Reason for Visit Dizziness Atherosclerotic heart disease [place] coronary artery w/angina pectoris CHF (congestive heart failure) Essential hypertension History of coronary artery stent placement Hyperlipidemia Dizziness DEAN (dyspnea on exertion) Palpitations CAD (coronary artery disease) CHF (congestive heart failure) Essential hypertension Hyperlipidemia Chief Complaint OVERDUE FOR OV CHEST PAIN CHEST PAIN 6-8 WK F/U DYSPNEA Reason for Visit Dizziness Atherosclerotic heart disease [place] coronary artery w/angina pectoris CHF (congestive heart failure) Essential hypertension History of coronary artery stent placement Hyperlipidemia Dizziness DEAN (dyspnea on exertion) Palpitations CAD (coronary artery disease) CHF (congestive heart failure) Essential hypertension Hyperlipidemia Chief Complaint OVERDUE FOR OV CHEST PAIN CHEST PAIN 6-8 WK F/U DYSPNEA CHEST PAIN 2 M FU E ORDERS Reason for Visit Dizziness Atherosclerotic heart disease [place] coronary artery w/angina pectoris CHF (congestive heart [...] DEAN (dyspnea on exertion) Atherosclerotic heart disease [place] coronary artery w/angina pectoris CHF (congestive heart failure) Essential hypertension History of coronary artery stent placement Hyperlipidemia Abnormal PFT COVID-19 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.9) Obstructive sleep apnea Chief Complaint SORE THROAT, COUGH, FEVER, BODY ACHE 5 MO F/U 3 M FU DYSPNEA/SOB Reason for Visit COVID-19 DEAN (dyspnea on exertion) Atherosclerotic heart disease [place] coronary artery w/angina pectoris CHF (congestive heart [...] CP CVA, CP CVA, CP request by 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 at [employer] [facility] [employer]ORDER SYNC[employer] Reason for Visit Angina pectoris Chronic kidney disease Coronary artery disease Diabetes mellitus Dyslipidemia Essential hypertension Obesity Left-sided weakness Chest pain Fatigue Syncope Coronary artery disease Dyslipidemia Essential hypertension Chief Complaint CAD Amb Documentation EKG Coronary artery disease Amb Documentation CVA, CP CVA, CP CP ADMIT CVA, CP CVA, CP CVA, CP CVA, CP request by 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 at [employer] [facility] [employer]ORDER SYNCOPE 2 M [...] CP CVA, CP CVA, CP request by 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 at [employer] [facility] [employer]ORDER SYNCOPE 2 M [...] section and content) DATE CREATED AUTHOR 09/24/2018 [facility] DATE CREATED AUTHOR AUTHOR'S ORGANIZ ATION 12/20/2020 [facility] DATE CREATED AUTHOR AUTHOR'S ORGANIZ ATION 01/11/2021 [facility] DATE CREATED AUTHOR AUTHOR'S ORGANIZ ATION 02/28/2021 [facility] DATE CREATED AUTHOR AUTHOR'S ORGANIZ ATION 04/20/2021 [facility] DATE CREATED AUTHOR AUTHOR'S ORGANIZ ATION 06/22/2021 [facility] DATE CREATED AUTHOR AUTHOR'S ORGANIZ ATION 12/04/2024 [facility] Reason for Visit (unrecogniz ed section and content) Reason Comments Chest Pain SOB Status Reason Specialty Diagnoses / Procedures Referred By Contact Referred To Contact Closed Cardiology Diagnoses DEAN (dyspnea on exertion) Procedures ECG 12 lead Fernanda Acuña, INSPECTOR MATERIALS [employer] PROCESSES [address] [place] [address] Status Reason Specialty Diagnoses / Procedures Referre d By Contact Referred To Contact Closed Cardiology Diagnoses Shortness of breath Procedures Echocardiogram complete w contrast Echocardiogram complete Eladio Ingram MD [address] [facility] [address] [place] [address] Reason Comments Initial Visit (Intake) Specialty Diagnoses / Procedures Referred By Contac t Referred To Contact Cardiology Diagnoses Atherosclerosis of [place] coronary artery with angina pectoris, unspecified whether [place] or transplanted heart (HCC) Marycarmen Rodriguez, [address] [facility] [place] [address] Referral ID Status Reason Start Date Expiration Date V isits Requested Visits Authorized [id number] Closed Specialty Services Required/Krupa ent's Best Interest 10/04/2020 10/04/2021 1 1 Care Teams (unrecognized sec tion and content) Mandarin Teacher Relationship Specialty Start Date End Date Marycarmen Rodriguez, DO [address] [place] [address] PCP - General Family Medicine 12/17/16 Mandarin Teacher Relationship Specialty Start Date End Date Marycarmen Rodriguez, DO [address] [place] [address] PCP - General Family Medicine 12/17/16 Mandarin Teacher Relationship Specialty Start Date End Date Marycarmen Rodriguez, DO [address] [place] [address] PCP - General Family Medicine 12/17/16 Mandarin Teacher Relationship Specialty Start Date End Date Marycarmen Rodriguez, DO [facility] [place] [address] PCP - General Family Medicine 12/17/16 Team Status: Active Member Role Status Dates Dr. Marycarmen Rodriguez DO Family Provider Active Marycarmne Rodriguez Primary Care Provider Active Team Status: Inactive Member Role Status Dates Dr. Marycarmen Rodriguez DO Primary Care Provider, Referrin g Provider Active Luz Elena Mckeon 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, 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-C Attending Provider Active Team Status: Inactive Member [...] Primary Care Provider Active Luz Elena Mckeon 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, 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-C Attending Provider Active Team Status: Inactive Member Role Status Dates Dr. Marycarmen Rodriguez DO Primary Care Provider Active Luz Elena Mckeon 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, 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-C Attending Provider, Referring P rovider Active Team [...] Primary Care Provider Active Luz Elena Mckeon 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, 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-C Attending Provider, Referring P sharon Active Team [...] Primary Care Provider Active Luz Elena Mckeon 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, 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-C Attending Provider Active Team Status: Inactive Member [...] 2024 End: April 17, 2024 Gustabo Pérez 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, 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-C Attending Provider Active S tart: April 17, 2024 End: April 17, 2024 Team Status: Inactive Member Role Status Dates Dr. Marycarmen Rodriguez DO Primary Care Provider Active Start: April 17, 2024 End: April 17, 2024 Gustabo Pérez 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, 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-C Attending Provider Active S tart: April 17, 2024 End: April 17, 2024 Gustabo Pérez 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, 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-C Referring Provider Active S tart: April 17, [...] 2024 End: July 03, 2024 Marni Horn 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, 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-C Attending Provider Active Start: July 03, 2024 End: July 03, 2024 Team Status: Active Member Role Status Dates Dr. Marycarmen Rodriguez DO Primary Care Provider Active Start: July 07, 2024 Marni Horn 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, 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-C Attending Provider Active Start: July 07, 2024 Marni Horn 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, 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-C Referring Provider Active Start: July 07, 2024 Team Status: Inactive Member Role Status Dates Dr. Marycarmen Rodriguez DO Primary Care Provider Active Start: July 07, 2024 End: July 07, 2024 Marni Horn 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, 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-C Attending Provider Active Start: July 07, 2024 End: July 07, 2024 Marni Horn 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, 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-C Referring Provider Active Start: July 07, 2024 End: July 07, 2024 Team Status: Active Member Role Status Dates Dr. Marycarmen Rodriguez DO Primary Care Provider Active Start: July 17, 2024 Marni Horn 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, 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-C Attending Provider Active Start: July 17, 2024 Marni Horn 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, 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-C Referring Provider Active Start: July 17, 2024 Team Status: Active Member Role Status Dates Dr. Marycarmen Rodriguez DO Primary Care Provider Active Start: July 18, 2024 Marni Horn 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, 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-C Attending Provider Active Start: July 18, 2024 Marni Horn 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, 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-C Referring Provider Active Start: July 18, 2024 Team Status: Active Member Role Status Dates Dr. Marycarmen Rodriguez DO Primary Care Provider Active Start: July 18, 2024 Marni Horn 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, 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-C Referring Provider Active Start: July 18, 2024 Marni Horn 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, 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-C Other Provider Active Start: July 18, 2024 Dr. Zen East DO Attending Provider Active S tart: July 18, 2024 Team Status: Inactive Member Role Status Dates Dr. Marycarmen Rodriguez DO Primary Care Provider Active Start: July 17, 2024 End: July 17, 2024 Marni Horn 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, 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-C Attending Provider Active Start: July 17, 2024 End: July 17, 2024 Marni Horn 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, 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-C Referring Provider Active Start: July 17, 2024 End: July 17, 2024 Team Status: Inactive Member Role Status Dates Dr. Marycarmen Rodriguez DO Primary Care Provider Active Start: July 18, 2024 End: July 18, 2024 Marni Horn 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, 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-C Attending Provider Active Start: July 18, 2024 End: July 18, 2024 Marni Horn 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, 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-C Referring Provider Active Start: July 18, 2024 End: July 18, 2024 Team Status: Inactive Member Role Status Dates Dr. Marycarmen Rodriguez DO Primary Care Provider Active Start: August 03, 2024 End: August 03, 2024 Marni Horn 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, 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-C Attending Provider Active Start: August 03, 2024 End: August 03, 2024 Marni Horn 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, 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-C Referring Provider Active Start: August 03, 2024 [...] 2024 End: September 20, 2024 Maren Olivas 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-C Attending Provider Active Start: September 20, 2024 End: September 20, 2024 Maren Olvias NP-C Referring Provider Active Start: September 20, 2024 End: September 20, 2024 Team Status: Active Member Role Status Dates Dr. Marycarmen Rodriguez DO Primary Care Provider Active Start: September 22, 2024 Marni Horn NP, 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-C Attending Provider Active Start: September 22, 2024 Team Status: Inactive Member Role Status Dates Dr. Marycarmen Rodriguez DO Primary Care Provider Active Start: September 22, 2024 End: September 22, 2024 Marni Horn NP, 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-C Attending Provider Active Start: September 22, 2024 [...] S tart: July 17, 2024 Marni Horn 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, 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-C Referring Provider Active Start: July 17, 2024 Team Status: Inactive Member Role Status Dates Dr. Marycarmen Rodriguez DO Primary Care Provider Active Start: October 18, 2024 End: October 18, 2024 Dr. Brooks Carpenter MD Attending Provider Active Start: October 18, 2024 End: October 18, 2024 Dr. Brooks Carpenter MD Referring Provider Active Start: October 18, 2024 End: October 18, 2024 Gustabo Pérez 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, 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-C Other Provider Active Start : October 18, 2024 End: October 18, 2024 Team Status: Active Member Role Status Dates Dr. Marycarmen Rodriguez DO Primary Care Provider Active Start: October 18, 2024 Marni Horn 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, 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-C Attending Provider Active Start: October 18, 2024 Team Status: Inactive Member Role Status Dates Dr. Marycarmen Rodriguez DO Primary Care Provider Active Start: October 25, 2024 End: October 25, 2024 Dr. Marycarmen Rodriguez DO Referring Provider Active Start: October 25, 2024 End: October 25, 2024 Gustabo Pérez 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, 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-C Attending Provider Active S tart: October 25, 2024 End: October 25, 2024 Team Status: Inactive Member Role Status Dates Dr. Marycarmen Rodriguez DO Primary Care Provider Active Start: October 18, 2024 End: October 18, 2024 Marni Horn 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, 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-C Attending Provider Active Start: October 18, 2024 [...] 2024 End: July 03, 2024 Marni Horn 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, 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-C Attending Provider Active Start: July 03, 2024 End: July 03, 2024 Team Status: Inactive Member Role/Relationship Status Dates Dr. Marycarmen Rodriguez DO Primary Care Provider Active Start: July 07, 2024 End: July 07, 2024 Marni Horn 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, 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-C Attending Provider Active Start: July 07, 2024 End: July 07, 2024 Marni Horn 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, 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-C Referring Provider Active Start: July 07, 2024 End: July 07, 2024 Team Status: Inactive Member Role/Relationship Status Dates Dr. Marycarmen Rodriguez DO Primary Care Provider Active Start: July 17, 2024 End: July 17, 2024 Marni Horn 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, 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-C Attending Provider Active Start: July 17, 2024 End: July 17, 2024 Marni Horn 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, 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-C Referring Provider Active Start: July 17, 2024 End: July 17, 2024 Team Status: Active Member Role/Relationship Status Dates Dr. Marycarmen Rodriguez DO Primary Care Provider Active Start: July 17, 2024 Dr. Zen East DO Attending Provider Active S tart: July 17, 2024 Marni Horn 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, 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-C Referring Provider Active Start: July 17, 2024 Team Status: Inactive Member Role/Relationship Status Dates Dr. Marycarmen Rodriguez DO Primary Care Provider Active Start: July 18, 2024 End: July 18, 2024 Marni Horn 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, 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-C Attending Provider Active Start: July 18, 2024 End: July 18, 2024 Marni Horn 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, 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-C Referring Provider Active Start: July 18, 2024 End: July 18, 2024 Team Status: Active Member Role/Relationship Status Dates Dr. Marycarmen Rodriguez DO Primary Care Provider Active Start: July 18, 2024 Marni Horn 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, 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-C Referring Provider Active Start: July 18, 2024 Marni Horn 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, 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-C Other Provider Active Start: July 18, 2024 Dr. Zen East DO Attending Provider Active S tart: July 18, 2024 Team Status: Inactive Member Role/Relationship Status Dates Dr. Marycarmen Rodriguez DO Primary Care Provider Active Start: August 03, 2024 End: August 03, 2024 Marni Horn 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, 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-C Attending Provider Active Start: August 03, 2024 End: August 03, 2024 Marni Horn 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, 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-C Referring Provider Active Start: August 03, 2024 [...] 2024 End: September 22, 2024 Marni Horn 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, 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-C Attending Provider Active Start: September 22, 2024 [...] 2024 End: October 18, 2024 Gustabo Pérez 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, 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-C Other Provider Active Start : October 18, 2024 End: October 18, 2024 Team Status: Inactive Member Role/Relationship Status Dates Dr. Marycarmen Rodriguez DO Primary Care Provider Active Start: October 18, 2024 End: October 18, 2024 Marni Horn 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, 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-C Attending Provider Active Start: October 18, 2024 End: October 18, 2024 Team Status: Inactive Member Role/Relationship Status Dates Dr. Marycarmen Rodriguez DO Primary Care Provider Active Start: October 25, 2024 End: October 25, 2024 Dr. Marycarmen Rodriguez DO Referring Provider Active Start: October 25, 2024 End: October 25, 2024 Gustabo Pérez 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, 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-C Attending Provider Active S tart: October 25, 2024 End: October 25, 2024 Team Status: Active Member Role/Relationship Status Dates Dr. Marycarmen Rodriguez DO Primary Care Provider Active Start: October 26, 2024 Marni Horn 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, 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-C Attending Provider Active Start: October 26, 2024 Marni Horn 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, 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-C Referring Provider Active Start: October 26, 2024 Team Status: Inactive Member Role/Relationship Status Dates Dr. Marycarmen Rodriguez DO Primary Care Provider Active Start: October 31, 2024 End: October 31, 2024 Dr. Marycarmen Rodriguez DO Referring Provider Active Start: October 31, 2024 End: October 31, 2024 Maren Olivas 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-C Attending Provider Active Start: October 31, 2024 End: October 31, 2024 Team Status: Inactive Member Role/Relationship Status Dates Dr. Marycarmen Rodriguez DO Primary Care Provider Active Start: October 26, 2024 End: October 26, 2024 Marni Horn 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, 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-C Attending Provider Active Start: October 26, 2024 End: October 26, 2024 Marni Horn 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, 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-C Referring Provider Active Start: October 26, 2024 End: October 26, 2024 Team Status: Inactive Member Role/Relationship Status Dates Dr. Marycarmen Rodriguez DO Primary Care Provider Active Start: August 03, 2024 End: August 03, 2024 Marni Horn 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, 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-C Attending Provider Active Start: August 03, 2024 End: August 03, 2024 Marni Horn 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, LINUX UNIX ADMINISTRATOR-C Referring Provider Active Start: August 03, 2024 [...] 2024 End: September 20, 2024 Maren Olivas LINUX UNIX ADMINISTRATOR-C Referring Provider Active Start: September 20, 2024 End: September 20, 2024 Team Status: Inactive Member Role/Relationship Status Dates Dr. Marycarmen Rodriguez DO Primary Care Provider Active Start: September 22, 2024 End: September 22, 2024 Marni Horn LINUX UNIX ADMINISTRATOR, LINUX UNIX ADMINISTRATOR-C Attending Provider Active Start: September 22, 2024 End: September 22, 2024 Team Status: Inactive Member Role/Relationship Status Dates Dr. Marycarmen Rodriguez DO Primary Care Provider Active Start: September 29, 2024 End: September 29, 2024 Dr. Marycarmen Rodriguez DO Attending Provider Active Start: September 29, 2024 End: September 29, 2024 Dr. Mayrcarmen Rodriguez DO Referring Provider Active Start: September [...] 2024 End: October 18, 2024 Gustabo Pérez LINUX UNIX ADMINISTRATOR, LINUX UNIX ADMINISTRATOR-C Other Provider Active Start : October 18, 2024 End: October 18, 2024 Team Status: Inactive Member Role/Relationship Status Dates Dr. Marycarmen Rodriguez DO Primary Care Provider Active Start: October 18, 2024 End: October 18, 2024 Marni Horn LINUX UNIX ADMINISTRATOR, LINUX UNIX ADMINISTRATOR-C Attending Provider Active Start: October 18, 2024 End: October 18, 2024 Team Status: Inactive Member Role/Relationship Status Dates Dr. Marycarmen Rodriguez DO Primary Care Provider Active Start: October 25, 2024 End: October 25, 2024 Dr. Marycarmen Rodriguez DO Referring Provider Active Start: October 25, 2024 End: October 25, 2024 Gustabo Pérez LINUX UNIX ADMINISTRATOR, LINUX UNIX ADMINISTRATOR-C Attending Provider Active S tart: October 25, 2024 End: October 25, 2024 Team Status: Inactive Member Role/Relationship Status Dates Dr. Marycarmen Rodriguez DO Primary Care Provider Active Start: October 26, 2024 End: October 26, 2024 Marni Horn LINUX UNIX ADMINISTRATOR, LINUX UNIX ADMINISTRATOR-C Attending Provider Active Start: October 26, 2024 End: October 26, 2024 Marni Horn LINUX UNIX ADMINISTRATOR, LINUX UNIX ADMINISTRATOR-C Referring Provider Active Start: October 26, 2024 [...] Active Start: November 10, 2024 Gustabo Pérez LINUX UNIX ADMINISTRATOR, LINUX UNIX ADMINISTRATOR-C Attending Provider Active S tart: November 10, 2024 Gustabo Pérez LINUX UNIX ADMINISTRATOR, LINUX UNIX ADMINISTRATOR-C Referring Provider Active S tart: November 10, 2024 Team Status: Active Member Role/Relationship Status Dates Dr. Marycarmen Rodriguez DO Primary Care Provider Active Start: November 10, 2024 Dr. Lance Rodriguez MD Attending Provider Active S tart: November 10, 2024 Gustabo Pérez LINUX UNIX ADMINISTRATOR, LINUX UNIX ADMINISTRATOR-C Referring Provider Active S tart: November 10, [...] Active Start: November 13, 2024 Gustabo Pérez LINUX UNIX ADMINISTRATOR, LINUX UNIX ADMINISTRATOR-C Referring Provider Active S tart: November 13, 2024 Gustabo Pérez LINUX UNIX ADMINISTRATOR, LINUX UNIX ADMINISTRATOR-C Other Provider Active Start : November 13, 2024 Dr. Jose Hay MD Attending Provider Active Start: November 13, 2024 Team Status: Inactive Member Role/Relationship Status Dates Dr. Marycarmen Rodriguez DO Primary Care Provider Active Start: November 10, 2024 End: November 10, 2024 Gustabo Pérez LINUX UNIX ADMINISTRATOR, LINUX UNIX ADMINISTRATOR-C Attending Provider Active S tart: November 10, 2024 End: November 10, 2024 Gustabo Pérez LINUX UNIX ADMINISTRATOR, LINUX UNIX ADMINISTRATOR-C Referring Provider Active S tart: November 10, 2024 End: November 10, 2024 Team Status: Inactive Member Role/Relationship Status Dates Dr. Marycarmen Rodriguez DO Primary Care Provider Active Start: November 10, 2024 End: November 10, 2024 Maren Olivas NP-C Attending Provider Active Start: November 10, 2024 End: November 10, 2024 Maren Olivas LINUX UNIX ADMINISTRATOR-C Referring Provider Active Start: November 10, 2024 [...] 2024 End: November 22, 2024 Gustabo Pérez LINUX UNIX ADMINISTRATOR, LINUX UNIX ADMINISTRATOR-C Attending Provider Active S tart: November 22, [...] Active Start: November 22, 2024 Gustabo Pérez LINUX UNIX ADMINISTRATOR, LINUX UNIX ADMINISTRATOR-C Attending Provider Active S tart: November 22, 2024 Gustabo Pérez LINUX UNIX ADMINISTRATOR, LINUX UNIX ADMINISTRATOR-C Referring Provider Active S tart: November 22, [...] 2024 End: November 22, 2024 Gustabo Pérez LINUX UNIX ADMINISTRATOR, LINUX UNIX ADMINISTRATOR-C Attending Provider Active S tart: November 22, 2024 End: November 22, 2024 Gustabo Pérez LINUX UNIX ADMINISTRATOR, LINUX UNIX ADMINISTRATOR-C Referring Provider Active S tart: November 22, [...] End: September 22, 2024 Marni Horn NP LINUX UNIX ADMINISTRATOR-C Attending Provider Active Start: September 22, 2024 [...] 2024 End: October 18, 2024 Gustabo Pérez LINUX UNIX ADMINISTRATOR, LINUX UNIX ADMINISTRATOR-C Other Provider Active Start : October 18, 2024 End: October 18, 2024 Team Status: Inactive Member Role/Relationship Status Dates Dr. Marycarmen Rodriguez DO Primary Care Provider Active Start: October 18, 2024 End: October 18, 2024 Marni Horn LINUX UNIX ADMINISTRATOR, LINUX UNIX ADMINISTRATOR-C Attending Provider Active Start: October 18, 2024 End: October 18, 2024 Team Status: Inactive Member Role/Relationship Status Dates Dr. Marycarmen Rodriguez DO Primary Care Provider Active Start: October 25, 2024 End: October 25, 2024 Dr. Marycarmen Rodriguez DO Referring Provider Active Start: October 25, 2024 End: October 25, 2024 Gustabo Pérez LINUX UNIX ADMINISTRATOR, LINUX UNIX ADMINISTRATOR-C Attending Provider Active S tart: October 25, 2024 End: October 25, 2024 Team Status: Inactive Member Role/Relationship Status Dates Dr. Marycarmen Rodriguez DO Primary Care Provider Active Start: October 26, 2024 End: October 26, 2024 Marni Horn LINUX UNIX ADMINISTRATOR, LINUX UNIX ADMINISTRATOR-C Attending Provider Active Start: October 26, 2024 End: October 26, 2024 Marni Horn LINUX UNIX ADMINISTRATOR, LINUX UNIX ADMINISTRATOR-C Referring Provider Active Start: October 26, 2024 [...] 2024 End: November 10, 2024 Gustabo Pérez LINUX UNIX ADMINISTRATOR, LINUX UNIX ADMINISTRATOR-C Attending Provider Active S tart: November 10, 2024 End: November 10, 2024 Gustabo Pérez LINUX UNIX ADMINISTRATOR, LINUX UNIX ADMINISTRATOR-C Referring Provider Active S tart: November 10, 2024 End: November 10, 2024 Team Status: Active Member Role/Relationship Status Dates Dr. Marycarmen Rodriguez DO Primary Care Provider Active Start: November 10, 2024 Dr. Lance Rodriguez MD Attending Provider Active S tart: November 10, 2024 Gustabo Pérez LINUX UNIX ADMINISTRATOR, LINUX UNIX ADMINISTRATOR-C Referring Provider Active S tart: November 10, 2024 Team Status: Inactive Member Role/Relationship Status Dates Dr. Marycarmen Rodriguez DO Primary Care Provider Active Start: November 10, 2024 End: November 10, 2024 Maren Olivas NP-C Attending Provider Active Start: November 10, 2024 End: November 10, 2024 Maren Olivas LINUX UNIX ADMINISTRATOR-C Referring Provider Active Start: November 10, 2024 End: November 10, 2024 Team Status: Active Member Role/Relationship Status Dates Dr. Marycarmen Rodriguez DO Primary Care Provider Active Start: November 13, 2024 Gustabo Pérez LINUX UNIX ADMINISTRATOR, LINUX UNIX ADMINISTRATOR-C Referring Provider Active S tart: November 13, 2024 Gustabo Pérez LINUX UNIX ADMINISTRATOR, LINUX UNIX ADMINISTRATOR-C Other Provider Active Start : November 13, [...] 2024 End: November 22, 2024 Gustabo Pérez LINUX UNIX ADMINISTRATOR, LINUX UNIX ADMINISTRATOR-C Attending Provider Active S tart: November 22, 2024 End: November 22, 2024 Team Status: Inactive Member Role/Relationship Status Dates Dr. Marycarmen Rodriguez DO Primary Care Provider Active Start: November 22, 2024 End: November 22, 2024 Gustabo Pérez LINUX UNIX ADMINISTRATOR, LINUX UNIX ADMINISTRATOR-C Attending Provider Active S tart: November 22, 2024 End: November 22, 2024 Gustabo Pérez LINUX UNIX ADMINISTRATOR, LINUX UNIX ADMINISTRATOR-C Referring Provider Active S tart: November 22, 2024 End: November 22, 2024 Team Status: Inactive Member Role/Relationship Status Dates Dr. Marycarmen Rodirguez DO Primary Care Provider Active Start: November [...] Provider Active Start: December 01, 2024 Dr. Nickei Danielson DO Attending Provider Active S tart: [...] Start: December 01, 2024 Dr. Nickie Danielson , [...] Member Role/Relationship Status Dates Dr. Marycarmen Rodriguez , Primary Care Provider Active Start: December 02, [...] BE BASED ON THE PRIMARY CLINICAL RECORDS. [facility]. provides no warranty or guarantee of the accuracy or completeness of information in this document.
--- OUTSIDE RECORDS SUMMARY | 2024-12-04 21:51 | XMS RPT_ITS | CCD ---
Author Organization [facility] Care Team Providers Care Clinical Advisor Name Role Phone Unavailable Unavailable Unavailable Marycarmen Rodriguez DO Primary Care Provider [phone] Marycarmen Rodriguez DO Primary Care Provider [phone] MIN HOWARD Referring Unavailable MARYCARMEN RODRIGUEZ Primary [...] Unavailable Dr. Marycarmen Rodriguez Primary Care Provider [phone] Dr. Marycarmen Rodriguez Referring Provider Mike PEREA, DWAINC Luz Elena Attending Provider Dr. Darnell Corral Attending Provider Mike AUTOMATION QA ANALYST, AUTOMATION QA ANALYST-C Luz Elena Referring Provider Mike AUTOMATION QA ANALYST, AUTOMATION QA ANALYST-C Luz Elena Other Provider [phone] Dr. John Palacios Attending Provider [phone] Mike AUTOMATION QA ANALYST, AUTOMATION QA ANALYST-C Luz Elena Referring Provider Dr. Marycarmen Rodriguez Primary Care Provider [phone] Dr. Marycarmen Rodriguez Referring Provider Mike AUTOMATION QA ANALYST, AUTOMATION QA ANALYST-C Luz Elena Attending Provider Dr. Zen East [...] Provider Dr. Aimee Cummins Attending Provider Mike AUTOMATION QA ANALYST, AUTOMATION QA ANALYST-C Luz Elena Attending Provider Adina Vallejo Attending [...] Dr. Marycarmen Rodriguez DO Attending Provider Beto AUTOMATION QA ANALYST-C, Gustabo H Attending Provider Beto AUTOMATION QA ANALYST-C, Gustabo H Referring Provider Justina AUTOMATION QA ANALYST-CMarni Attending Provider Justina AUTOMATION QA ANALYST-CMarni Referring Provider Dr. Marycarmen Rodriguez DO Primary Care Provider Dr. Marycarmen Rodriguez DO Referring Provider Dr. Jose Hay MD Attending Provider Justina AUTOMATION QA ANALYST-CMarni Other Provider Dr. Zen East DO Attending Provider Dr. Marycarmen Rodriguez DO Primary Care Provider Dr. Marycarmen Rodriguez DO Referring Provider Jennifer DO, Dr. Dow Attending Provider Jennifer DO, Dr. Dow Primary Care Provider Jennifer DO, Dr. Dow Referring Provider Brendon AUTOMATION QA ANALYST-C, Maren Clarke Attending Provider Brendon AUTOMATION QA ANALYST-C, Maren Clarke Referring Provider Cruzito CATHERINE, Dr. Zaldivar Attending Provider Pauline PALOMO, Dr. Guy Attending Provider Pauline PALOMO, Dr. Guy Referring Provider Roof AUTOMATION QA ANALYST-C, Gustabo Gao Other Provider Roof AUTOMATION QA ANALYST-C, Gustabo Gao Attending Provider Jennifer DO, Dr. Dow Primary Care Provider Jennifer DO, Dr. Dow Attending Provider Jennifer DO, Dr. Dow Primary Care Provider Horn AUTOMATION QA ANALYST-C, Marni Attending Provider Horn AUTOMATION QA ANALYST-C, Marni Referring Provider Jennifer DO, Dr. Dow Referring Provider Roof AUTOMATION QA ANALYST-C, Gustabo Gao Referring Provider Jennifer PALOMO, Dr. Lucas Attending Provider Unavailab bear Hay MD, Dr. Garcia Attending Provider JenniferDr. Marycarmen vera DO Primary Care Provider Horn AUTOMATION QA ANALYST-C, Marni Attending Provider Horn AUTOMATION QA ANALYST-CMarni Referring Provider JenniferDr. Marycarmen vera DO Referring Provider Brendon AUTOMATION QA ANALYST-CMaren Attending Provider Brendon AUTOMATION QA ANALYST-C, Maren Clarke Referring Provider JenniferDr. Marycarmen vera DO Attending Provider Pauline PALOMO, Dr. Guy Attending Provider Pauline PALOMO, Dr. Guy Referring Provider Roof AUTOMATION QA ANALYST-C, Gustabo H Other Provider Roof AUTOMATION QA ANALYST-C, Gustabo H Attending Provider Roof AUTOMATION QA ANALYST-C, Gustabo H Referring Provider Jennifer PALOMO, Dr. Lucas Attending Provider Unavailab bear Hay MD, Dr. Garcia Attending Provider Isael Bernabe MD Emergency Provider Jose Armando PALOMO, Dr. Garcia Admit Provider Jose Armando PALOMO, Dr. Garcia Referring Provider Keyana CATHERINE, Dr. Rosario Admit Provider Dr. Abraham Ridley DO Attending Provider Dr. Marycarmen Rodriguez DO Primary Care Provider Horn AUTOMATION QA ANALYST-C, Marni Attending Provider Justina AUTOMATION QA ANALYST-C, Marni Referring Provider Isael Bernabe MD Attending Provider Dr. Abraham Ridley DO Other Provider Dr. Nickie Danielson DO Attending Provider [phone] Elvis Olvera MD Other Provider Unavailable Dr. Sangeeta Negro MD Other Provider Faye Kingsley MD Other Provider Unavailable Dr. Petrona Vargas DO Other Provider [phone] Cain PALOMO, Dr. Harvey Other Provider Sissy PALOMO, Dr. Shetty Other Provider Carrington PALOMO, Dr. Alcala Other Provider Nasim PALOMO, Dr. Whitaker Other Provider Dr. Seymour John MD Other Provider Willie PALOMO, Dr. Roldan Other Provider Xena PALOMO, Chrissy Other Provider Florentino PALOMO, Dr. Bynum Other Provider [phone] Bari PALOMO, Dr. Burleson Other Provider Cher PALOMO, Dr. Vera Other Provider [phone] Arnav PALOMO, Dr. Fermin Hernandez Other Provider Ken PALOMO, Dr. Alvarado Other Provider Joana PALOMO, Dr. Romero Other Provider [phone] Annabelle PALOMO, Dr. Collazo Other Provider Jagjit PALOMO, Dr. Acevedo Other Provider Unavailable Kayli PALOMO, Ernestina Other Provider Unavailable Dr. Abraham Ridley DO Attending Provider Jagjit CATHERINE, Dr. Fu Other Provider Gayle PALOMO, Dr. Burch Attending Provider [phone] Hilton PALOMO, Dr. Iqbal Emergency Provider [phone] Tatiana PALOMO, Dr. Arevalo Referring Provider Jose Armando, Jose Referring Unavailable Jose Armando, Jose Admitting Unavailable Jose Armando, Jose Attending Unavailable Jennifer, Marycarmen Primary Care Unavailable Jennifer, Marycarmen Primary Care Unavailable Justina AUTOMATION QA ANALYST, Marni Referring Unavailable Justina AUTOMATION QA ANALYST, Marni Attending Unavailable Jose Armando, Jose Referring Unavailable Jose Armando, Jose Attending Unavailable Jennifer, Marycarmen Primary Care Unavailable Abraham Ridley Admitting Unavailable Abraham Ridley Consulting Unavailable Jose Armando, Jose Referring Unavailable Nickie Danielson Attending Unavailable Jennifer, Marycarmen Primary Care Unavailable AntonitoElvis judd Consulting Unavailable Adeli, Amir Consulting Unavailable Hinduja, Faye Consulting Unavailable Sma, Petrona Consulting Unavailable Zha, Candice Consulting Unavailable [...] Consulting Unavailable Jennifer, Marycarmen Referring Unavailable Horn AUTOMATION QA ANALYST, Marni Attending Unavailable Jennifer, Marycarmen Primary Care Unavailable Roof AUTOMATION QA ANALYST, Gustabo H Attending Unavailable Jennifer, Marycarmen Referring Unavailable Jennifer, Marycarmen Primary Care Unavailable Jennifer, Marycarmen Attending Unavailable Jennifer, Marycarmen Primary Care Unavailable Jennifer, Marycarmen Attending Unavailable Jennifer, Marycarmen Primary Care Unavailable Roof AUTOMATION QA ANALYST, Gustabo H Attending Unavailable Roof AUTOMATION QA ANALYST, Gustabo H Referring Unavailable Jennifer, Marycarmen Primary Care Unavailable Jennifer, Marycarmen Primary Care Unavailable Horn AUTOMATION QA ANALYST, Marni Attending Unavailable Horn AUTOMATION QA ANALYST, Marni Referring Unavailable Isael Bernabe Attending Unavailable Jennifer, Marycarmen Primary Care Unavailable Roof AUTOMATION QA ANALYST, Gustabo H Attending Unavailable Roof AUTOMATION QA ANALYST, Gustabo H Referring Unavailable Jennifer, Marycarmen Primary Care Unavailable Jennifer, Marycarmen Primary Care Unavailable Jennifer, Marycarmen Attending Unavailable Jennifer, Marycarmen Primary Care Unavailable Brooks Carpenter Attending Unavailable Basali, Ayman Referring Unavailable Jennifer, Marycarmen Primary Care Unavailable Roof AUTOMATION QA ANALYST, Gustabo H Consulting Unavailable BasalBrooks berman Referring Unavailable Brooks Carpenter Attending Unavailable Jennifer, Marycarmen Attending Unavailable Jennifer, Marycarmen Referring Unavailable Jennifer, Marycarmen Primary Care Unavailable Jennifer, Marycarmen Primary Care Unavailable Roof AUTOMATION QA ANALYST, Gustabo H Attending Unavailable Roof AUTOMATION QA ANALYST, Gustabo H Referring Unavailable Jennifer, Marycarmen Referring Unavailable Jose ArmandoJose Attending Unavailable Jennifer, Marycarmen Primary Care Unavailable Jose ArmandoJose Attending Unavailable Jennifer, Marycarmen Referring Unavailable Jennifer, Marycarmen Primary Care Unavailable Jennifer, Marycarmen Referring Unavailable Jennifer, Marycarmen Primary Care Unavailable Maren Olivas Attending Unavailable Jennifer, Marycarmen Referring Unavailable Roof AUTOMATION QA ANALYST, Gustabo Gao Attending Unavailable Jennifer, Marycarmen Primary Care Unavailable Jennifer, Marycarmen Primary Care Unavailable Jennifer, Marycarmen Referring Unavailable Roof AUTOMATION QA ANALYST, Gustabo H Attending Unavailable Jennifer, Marycarmen Primary Care Unavailable Roof AUTOMATION QA ANALYST, Gustabo Gao Referring Unavailable Lance Rodriguez Attending Unavailable Jennifer, Marycarmen Primary Care Unavailable Maren Olivas Attending Unavailable Jennifer, Marycarmen Referring Unavailable Jennifer, Marycarmen Primary Care Unavailable Zen East Attending Unavailable Horn AUTOMATION QA ANALYST, Marni Referring Unavailable Jennifer, Marycarmen Primary Care Unavailable Horn AUTOMATION QA ANALYST, Marni Attending Unavailable Jennifer, Marycarmen Primary Care Unavailable Horn AUTOMATION QA ANALYST, Marni Attending Unavailable Jennifer, Marycarmen Primary Care Unavailable Horn AUTOMATION QA ANALYST, Marni Attending Unavailable Horn AUTOMATION QA ANALYST, Marni Referring Unavailable Jennifer, Marycarmen Primary Care Unavailable Horn AUTOMATION QA ANALYST, Marni Referring Unavailable Horn AUTOMATION QA ANALYST, Marni Attending Unavailable Jennifer, Marycarmen Primary Care Unavailable Maren Olivas Referring Unavailable Maren Olivas Attending Unavailable Jennifer, Marycarmen Primary Care Unavailable Maern Olivas Referring Unavailable Maren Olivas Attending Unavailable Jennifer, Marycarmen Primary Care Unavailable Zen East Attending Unavailable Horn AUTOMATION QA ANALYST, Marni Referring Unavailable Horn AUTOMATION QA ANALYST, Marni Consulting Unavailable Jennifer, Marycarmen Primary Care Unavailable Horn AUTOMATION QA ANALYST, Marni Referring Unavailable Horn AUTOMATION QA ANALYST, Marni Attending Unavailable Jennifer, Marycarmen Primary Care Unavailable Roof AUTOMATION QA ANALYST, Gustabo H Referring Unavailable Roof AUTOMATION QA ANALYST, Gustabo Gao Consulting Unavailable Jose Hay Attending Unavailable Abraham Ridley Admitting Unavailable Abraham Ridley Consulting Unavailable Abraham Ridley Attending Unavailable Mickey Simpson Referring Unavailable Marycarmen Rodriguez Primary Care Unavailable [...] Drug Class(es) Dates Sig (Normalized) Sig (Original) [id number] 200 actuat albuterol 0.09 mg/actuat metered dose [...] Acute and unspecified renal failure (6 sources) Oyjuz-ae-ovvdkuo renal failure; Translations: [Acute kidney failure, unspecified] [...] heart disease (20 sources) Coronary arteriosclerosis in [place] artery; Translations: [Preinfarction syndrome] Onset: 01-05-2015 10-15-2016 [...] multiple wires and attempts. Procedure aborted. No complications.[id number]-ZFF-Erdd 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-Ykf RCA Taxus Express2 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-SNPZ-Ej and Stent-Mid RCA x 2 Multi Link [...] )on 12-04-2024 BUN/CRE 19.4 RATIO Normal - [facility] Comment on above: Performed By: #### L 500.2500, L100.0100 ####[facility] [address] [place], [address] Calcium [Mass/Vol] 9.2 mg/dL Normal 7.6-11.0 [facility] Comment on above: Performed By: #### L 500.2500, L100.0100 ####[facility] [address] [place], [address] Chloride [Moles/Vol] 96 mmol/L Low 98-108 [facility] Comment on above: Performed By: #### L 500.2500, L100.0100 ####[facility] [address] [place], [address] CO2 [Moles/Vol] 21.4 mmol/L Normal 21.0-32.0 [facility] Comment on above: Performed By: #### L 500.2500, L100.0100 ####[facility] [address] [place], [address] Creatinine [Mass/Vol] 2.53 mg/dL High 0.70-1.20 [facility] Comment on above: Performed By: #### L 500.2500, L100.0100 ####[facility] [address] [place], [address] ECRCL 28.47 ml/min Low 50-250 [facility] Comment on above: Performed By: #### L 500.2500, L100.0100 ####[facility] [address] [place], [address] GAP 19 High 5-15 [facility] Comment on above: Performed By: #### L 500.2500, L100.0100 ####[facility] [address] [place], [address] GFR/1.73 sq M.predicted among non-blacks MDRD (S/P/Bld) [Vol rate/Area] 25 mL/min/{1.73_m2} Low >60 [facility] Comment on above: Result Comment: mL/m in/1.73m2 CKD-EPI Creatinine Equation (2020) Performed By: #### L 500.2500, L100.0100 ####[facility] [address] [place], [address] Glucose [Mass/Vol] 140 mg/dL High 70-99 [facility] Comment on above: Performed By: #### L 500.2500, L100.0100 ####[facility] [address] [place], [address] Potassium [Moles/Vol] 3.1 mmol/L Low 3.3-5.1 [facility] Comment on above: Performed By: #### L 500.2500, L100.0100 ####[facility] [address] [place], [address] Sodium [Moles/Vol] 137 mmol/L Normal 133-145 [facility] Comment on above: Performed By: #### L 500.2500, L100.0100 ####[facility] [address] [place], [address] Urea nitrogen [Mass/Vol] 49 mg/dL High 4-19 [facility] Comment on above: Performed By: #### L 500.2500, L100.0100 ####[facility] [address] [place], [address] Bedside Glucoseon 12-04-2024 FINGERSTICK GLU 207 mg/dL High 74-106 [facility] Comment on above: Result Comment: WILDA GEMENT OF PATIENT CARE PER NURSING PROTOCOL Performed By: #### L 501.080 ####[facility] [address] [place], [address] FINGERSTICK GLU 147 mg/dL High 74-106 [facility] Comment on above: Result Comment: WILDA GEMENT OF PATIENT CARE PER NURSING PROTOCOL Performed By: #### L 501.080 ####[facility] [address] [place], [address] CBC W/Diff, Automatedon 08-0 Absolute Lymph 1.07 X10 3/uL Normal 0.83-4.51 [facility] Comment on above: Performed By: #### L 500.2500, L100.0100 ####[facility] [address] [place], [address] Absolute Neut 7.1 X10 3/uL Normal 2.0-7.7 [facility] Comment on above: Performed By: #### L 500.2500, L100.0100 ####[facility] [address] [place], [address] Basophils/100 WBC (Bld) 0.3 % Normal 0-1 [facility] Comment on above: Performed By: #### L 500.2500, L100.0100 ####[facility] [address] [place], [address] Eosinophils/100 WBC (Bld) 2.2 % Normal 0-5 [facility] Comment on above: Performed By: #### L 500.2500, L100.0100 ####[facility] [address] [place], [address] Erythrocyte distribution width (RBC) [Ratio] 13.7 % Normal 11.6-14.6 [facility] Comment on above: Performed By: #### L 500.2500, L100.0100 ####[facility] [address] [place], [address] Hematocrit (Bld) [Volume fraction] 31.5 % Low 40-54 [facility] Comment on above: Performed By: #### L 500.2500, L100.0100 ####[facility] [address] [place], [address] Hemoglobin (Bld) [Mass/Vol] 10.5 g/dL Low 13.0-16.5 [facility] Comment on above: Performed By: #### L 500.2500, L100.0100 ####[facility] [address] [place], [address] IG% 0.600 Normal 0.0-0.9 [facility] Comment on above: Result Comment: IG% - Immature Granulocytes (promyelocytes, myelocytes andmetamyelocytes) > 1% indicates that a LEFT SHIFT is Present. Performed By: #### L 500.2500, L100.0100 ####[facility] [address] [place], [address] Lymphocytes/100 WBC (Bld) 11.1 % Low 19-41 [facility] Comment on above: Performed By: #### L 500.2500, L100.0100 ####[facility] [address] [place], [address] MCH (RBC) [Entitic mass] 29.2 pg Normal 27.0-32.0 [facility] Comment on above: Performed By: #### L 500.2500, L100.0100 ####[facility] [address] [place], [address] MCHC (RBC) [Mass/Vol] 33.3 g/dL Normal 32-36 [facility] Comment on above: Performed By: #### L 500.2500, L100.0100 ####[facility] [address] [place], [address] MCV (RBC) [Entitic vol] 87.7 fL Normal 80-94 [facility] Comment on above: Performed By: #### L 500.2500, L100.0100 ####[facility] [address] [place], [address] Monocytes/100 WBC (Bld) 11.9 % High 0-10 [facility] Comment on above: Performed By: #### L 500.2500, L100.0100 ####[facility] [address] [place], [address] Neutrophils/100 WBC (Bld) 73.9 % High 47-70 [facility] Comment on above: Performed By: #### L 500.2500, L100.0100 ####[facility] [address] [place], [address] Nucleated RBC (Bld) [#/Vol] 0 10*3/uL Normal 0-5 [facility] Comment on above: Performed By: #### L 500.2500, L100.0100 ####[facility] [address] [place], [address] Platelet mean volume (Bld) [Entitic vol] 13.7 fL High 6.2-12.0 [facility] Comment on above: Performed By: #### L 500.2500, L100.0100 ####[facility] [address] [place], [address] Platelets (Bld) [#/Vol] 126 10*3/uL Low 150-450 [facility] Comment on above: Performed By: #### L 500.2500, L100.0100 ####[facility] [address] [place], [address] RBC (Bld) [#/Vol] 3.59 10*6/uL Low 4.6-6.2 [facility] Comment on above: Performed By: #### L 500.2500, L100.0100 ####[facility] [address] [place], [address] RDW SD 43.8 fl Normal 35.1-43.9 [facility] Comment on above: Performed By: #### L 500.2500, L100.0100 ####[facility] [address] [place], [address] WBC (Bld) [#/Vol] 9.7 10*3/uL Normal 4.4-11.0 [facility] Comment on above: Performed By: #### L 500.2500, L100.0100 ####[facility] [address] [place], [address] 12 Lead EKGon 12-03-2024 12 Lead EKG Normal [facility] Bedside Glucoseon 12-03-2024 FINGERSTICK GLU 153 mg/dL High 74-106 [facility] Comment on above: Result Comment: WILDA GEMENT OF PATIENT CARE PER NURSING PROTOCOL Performed By: #### L 501.080 ####[facility] [address] [place], [address] FINGERSTICK GLU 156 mg/dL [address] Comment on above: Result Comment: WILDA GEMENT OF PATIENT CARE PER NURSING PROTOCOL Performed By: #### L 501.080 ####[facility] [address] [place], [address] FINGERSTICK GLU 226 mg/dL High [facility]106 [facility] Comment on above: Result Comment: WILDA GEMENT OF PATIENT CARE PER NURSING PROTOCOL Performed By: #### L 501.080 ####[facility] [address] [place], [address] FINGERSTICK GLU 140 mg/dL [address] Comment on above: Result Comment: WILDA GEMENT OF PATIENT CARE PER NURSING PROTOCOL Performed By: #### L 501.080 ####[facility] [address] [place], [address] FINGERSTICK GLU 200 mg/dL [address] Comment on above: Result Comment: WILDA GEMENT OF PATIENT CARE PER NURSING PROTOCOL Performed By: #### L 501.080 ####[facility] [address] [place], [address] CBC W/Diff, Automatedon 08-0 -2024 Absolute Lymph 0.95 X10 3/uL Normal 0.83-4.51 [facility] Comment on above: Performed By: #### L 500.4050, L100.0100, L501.2300, L501.5200 ####[facility] [address] [place], [address] Absolute Neut 6.9 X10 3/uL Normal 2.0-7.7 [facility] Comment on above: Performed By: #### L 500.4050, L100.0100, L501.2300, L501.5200 ####[facility] [address] [place], [address] Basophils/100 WBC (Bld) 0.2 % Normal 0-1 [facility] Comment on above: Performed By: #### L 500.4050, L100.0100, L501.2300, L501.5200 ####[facility] [address] [place], [address] Eosinophils/100 WBC (Bld) 1.8 % Normal 0-5 [facility] Comment on above: Performed By: #### L 500.4050, L100.0100, L501.2300, L501.5200 ####[facility] [address] [place], [address] Erythrocyte distribution width (RBC) [Ratio] 14.2 % Normal 11.6-14.6 [facility] Comment on above: Performed By: #### L 500.4050, L100.0100, L501.2300, L501.5200 ####[facility] [address] [place], [address] Hematocrit (Bld) [Volume fraction] 31.8 % Low 40-54 [facility] Comment on above: Performed By: #### L 500.4050, L100.0100, L501.2300, L501.5200 ####[facility] [address] [place], [address] Hemoglobin (Bld) [Mass/Vol] 10.3 g/dL Low 13.0-16.5 [facility] Comment on above: Performed By: #### L 500.4050, L100.0100, L501.2300, L501.5200 ####[facility] [address] [place], [address] IG% 0.600 Normal 0.0-0.9 [facility] Comment on above: Result Comment: IG% - Immature Granulocytes (promyelocytes, myelocytes andmetamyelocytes) > 1% indicates that a LEFT SHIFT is Present. Performed By: #### L 500.4050, L100.0100, L501.2300, L501.5200 ####[facility] [address] [place], [address] Lymphocytes/100 WBC (Bld) 10.5 % Low 19-41 [facility] Comment on above: Performed By: #### L 500.4050, L100.0100, L501.2300, L501.5200 ####[facility] [address] [place], [address] MCH (RBC) [Entitic mass] 29.3 pg Normal 27.0-32.0 [facility] Comment on above: Performed By: #### L 500.4050, L100.0100, L501.2300, L501.5200 ####[facility] [address] [place], [address] MCHC (RBC) [Mass/Vol] 32.4 g/dL Normal 32-36 [facility] Comment on above: Performed By: #### L 500.4050, L100.0100, L501.2300, L501.5200 ####[facility] [address] [place], [address] MCV (RBC) [Entitic vol] 90.3 fL Normal 80-94 [facility] Comment on above: Performed By: #### L 500.4050, L100.0100, L501.2300, L501.5200 ####[facility] [address] [place], [address] Monocytes/100 WBC (Bld) 11.4 % High 0-10 [facility] Comment on above: Performed By: #### L 500.4050, L100.0100, L501.2300, L501.5200 ####[facility] [address] [place], [address] Neutrophils/100 WBC (Bld) 75.5 % High 47-70 [facility] Comment on above: Performed By: #### L 500.4050, L100.0100, L501.2300, L501.5200 ####[facility] [address] [place], [address] Nucleated RBC (Bld) [#/Vol] 0 10*3/uL Normal 0-5 [facility] Comment on above: Performed By: #### L 500.4050, L100.0100, L501.2300, L501.5200 ####[facility] [address] [place], [address] Platelet mean volume (Bld) [Entitic vol] 12.4 fL High 6.2-12.0 [facility] Comment on above: Performed By: #### L 500.4050, L100.0100, L501.2300, L501.5200 ####[facility] [address] [place], [address] Platelets (Bld) [#/Vol] 104 10*3/uL Low 150-450 [facility] Comment on above: Performed By: #### L 500.4050, L100.0100, L501.2300, L501.5200 ####[facility] [address] [place], [address] RBC (Bld) [#/Vol] 3.52 10*6/uL Low 4.6-6.2 [facility] Comment on above: Performed By: #### L 500.4050, L100.0100, L501.2300, L501.5200 ####[facility] [address] [place], [address] RDW SD 46.0 fl High 35.1-43.9 [facility] Comment on above: Performed By: #### L 500.4050, L100.0100, L501.2300, L501.5200 ####[facility] [address] [place], [address] WBC (Bld) [#/Vol] 9.1 10*3/uL Normal 4.4-11.0 [facility] Comment on above: Performed By: #### L 500.4050, L100.0100, L501.2300, L501.5200 ####[facility] [address] [place], [address] Comprehensive Metabolic Prof hion 12-03-2024 Albumin [Mass/Vol] 3.4 g/dL Normal 3.4-4.8 [facility] Comment on above: Performed By: #### L 500.4050, L100.0100, L501.2300, L501.5200 ####[facility] [address] [place], [address] Albumin/Globulin [Mass ratio] 1.2 {ratio} Normal 0.9-2.4 [facility] Comment on above: Performed By: #### L 500.4050, L100.0100, L501.2300, L501.5200 ####[facility] [address] [place], [address] ALK PHOS 94 U/L Normal 40-129 [facility] Comment on above: Performed By: #### L 500.4050, L100.0100, L501.2300, L501.5200 ####[facility] [address] [place], [address] ALT [Catalytic activity/Vol] 47 U/L Normal <=46 [facility] Comment on above: Performed By: #### L 500.4050, L100.0100, L501.2300, L501.5200 ####[facility] [address] [place], [address] AST [Catalytic activity/Vol] 134 U/L High <=37 [facility] Comment on above: Performed By: #### L 500.4050, L100.0100, L501.2300, L501.5200 ####[facility] [address] [place], [address] Bilirubin [Mass/Vol] 1.27 mg/dL Normal 0.00-1.30 [facility] Comment on above: Performed By: #### L 500.4050, L100.0100, L501.2300, L501.5200 ####[facility] [address] [place], [address] BUN/CRE 20.6 RATIO High 10-20 [facility] Comment on above: Performed By: #### L 500.4050, L100.0100, L501.2300, L501.5200 ####[facility] [address] [place], [address] Calcium [Mass/Vol] 8.9 mg/dL Normal 7.6-11.0 [facility] Comment on above: Performed By: #### L 500.4050, L100.0100, L501.2300, L501.5200 ####[facility] [address] [place], [address] Chloride [Moles/Vol] 100 mmol/L Normal 98-108 [facility] Comment on above: Performed By: #### L 500.4050, L100.0100, L501.2300, L501.5200 ####[facility] [address] [place], [address] CO2 [Moles/Vol] 18.7 mmol/L Low 21.0-32.0 [facility] Comment on above: Performed By: #### L 500.4050, L100.0100, L501.2300, L501.5200 ####[facility] [address] [place], [address] Creatinine [Mass/Vol] 2.58 mg/dL High 0.70-1.20 [facility] Comment on above: Performed By: #### L 500.4050, L100.0100, L501.2300, L501.5200 ####[facility] [address] [place], [address] ECRCL 28.22 ml/min Low 50-250 [facility] Comment on above: Performed By: #### L 500.4050, L100.0100, L501.2300, L501.5200 ####[facility] [address] [place], [address] GAP 15 Normal 5-15 [facility] Comment on above: Performed By: #### L 500.4050, L100.0100, L501.2300, L501.5200 ####[facility] [address] [place], [address] GFR/1.73 sq M.predicted among non-blacks MDRD (S/P/Bld) [Vol rate/Area] 25 mL/min/{1.73_m2} Low >60 [facility] Comment on above: Result Comment: mL/m in/1.73m2 CKD-EPI Creatinine Equation (2020) Performed By: #### L 500.4050, L100.0100, L501.2300, L501.5200 ####[facility] [address] [place], [address] Globulin (S) [Mass/Vol] 2.8 g/dL Normal 2.2-4.2 [facility] Comment on above: Performed By: #### L 500.4050, L100.0100, L501.2300, L501.5200 ####[facility] [address] [place], [address] Glucose [Mass/Vol] 154 mg/dL High 70-99 [facility] Comment on above: Performed By: #### L 500.4050, L100.0100, L501.2300, L501.5200 ####[facility] [address] [place], [address] Potassium [Moles/Vol] 3.7 mmol/L Normal 3.3-5.1 [facility] Comment on above: Performed By: #### L 500.4050, L100.0100, L501.2300, L501.5200 ####[facility] [address] [place], [address] Sodium [Moles/Vol] 134 mmol/L Normal 133-145 [facility] Comment on above: Performed By: #### L 500.4050, L100.0100, L501.2300, L501.5200 ####[facility] [address] [place], [address] T PROT 6.3 g/dL Normal 5.9-8.4 [facility] Comment on above: Performed By: #### L 500.4050, L100.0100, L501.2300, L501.5200 ####[facility] [address] [place], [address] Urea nitrogen [Mass/Vol] 53 mg/dL High 4-19 [facility] Comment on above: Performed By: #### L 500.4050, L100.0100, L501.2300, L501.5200 ####[facility] [address] [place], [address] Consultation - Cardiologyon 12-03-2024 Consultation - Cardiology Normal [facility] Magnesiumon 12-03-2024 Magnesium [Mass/Vol] 2.5 mg/dL High 1.5-2.2 [facility] Comment on above: Performed By: #### L 500.4050, L100.0100, L501.2300, L501.5200 ####[facility] [address] [place], [address] Phosphoruson 12-03-2024 Phosphate [Mass/Vol] 3.4 mg/dL Normal 2.7-4.5 [facility] Comment on above: Performed By: #### L 500.4050, L100.0100, L501.2300, L501.5200 ####[facility] [address] [place], [address] Troponin T HS 2 HRon 025 Trop T High Sen > 939[address] Invalid Interpretation Code <=22 [facility] Comment on above: Result Comment: Crit ical Result(s) Called at:0007 by:??KEIKO BABB Results read back by same. Performed By: #### L 499.0042 ####[facility] [address] [place], [address] Troponin T HS 4 HRon 025 Trop T High Sen > 45658 Invalid Interpretation Code <=22 [facility] Comment on above: Result Comment: Crit ical Result(s) Called at: 0240 by:??KEIKO HOOPER Results read back by same. Performed By: #### L 499.0043 ####[facility] [address] [place], [address] Urinalysis, Completeon 12-03 BACTERIA 0 SEEN Normal None Seen [facility] Comment on above: Order Comment: CLEAN CATCH Performed By: #### L 400.0001 ####[facility] [address] [place], [address] EPI,SQUAMOUS 0 SEEN Normal 0-5 [facility] Comment on above: Order Comment: CLEAN CATCH Performed By: #### L 400.0001 ####[facility] [address] [place], [address] Mucus Ql (Urine sed) 0 SEEN Normal [facility] Comment on above: Order Comment: CLEAN CATCH Performed By: #### L 400.0001 ####[facility] [address] [place], [address] RBC 0 SEEN Normal 0-5 [facility] Comment on above: Order Comment: CLEAN CATCH Performed By: #### L 400.0001 ####[facility] [address] [place], [address] WBC 0 SEEN Normal 0-5 [facility] Comment on above: Order Comment: CLEAN CATCH Performed By: #### L 400.0001 ####[facility] [address] [place], [address] 12 Lead EKGon 12-02-2024 12 Lead EKG Normal [facility] ACT Activated Clotting Timeo n 12-02-2024 ACTk CLOT TIME 245 sec High 74-137 [facility] Comment on above: Performed By: #### L 9100.0100 ####[facility] [address] [place], [address] Absolute lymphocyte countOrd ered By: Rasheed Canela on 12-02-2024 Lymphocytes Auto (Unsp spec) [#/Vol] 1.13 10*3/uL 0.83-4.51 [facility] Absolute lymphocyte countOrd ered By: Nickie Danielson on 12-02-2024 Lymphocytes Auto (Unsp spec) [#/Vol] 0.85 10*3/uL 0.83-4.51 [facility] Activated partial thrombopla stin time (aPTT) in platelet poor plasma by coagulation aOrdered By: Rasheed Canela on 12-02-2024 aPTT Coag (PPP) [Time] 31.6 s 24.1-36.2 [facility] Anion gap in Serum or Plasma Ordered By: Rasheed Canela on 12-02-2024 Anion gap [Moles/Vol] 14 mmol/L 5-15 [facility] Anion gap in Serum or Plasma Ordered By: Nickie Danielson on 12-02-2024 Anion gap [Moles/Vol] 14 mmol/L 09-14 [facility] Automated lymphocyte count a s percentage of total leukocytesOrdered By: Rasheed Canela on 12-02-2024 Lymphocytes/100 WBC Auto (Unsp spec) 8.9 % Low [facility] Automated lymphocyte count a s percentage of total leukocytesOrdered By: Nickie Danielson on 12-02-2024 Lymphocytes/100 WBC Auto (Unsp spec) 7.6 % Low [facility] BUN/creatinine ratioOrdered By: Rasheed Canela on 12-02-2024 Urea nitrogen/Creatinine [Mass ratio] 18.0 mg/mg 02-19 [facility] BUN/creatinine ratioOrdered By: Nickie Danielson on 12-02-2024 Urea nitrogen/Creatinine [Mass ratio] 17.2 mg/mg 02-19 [facility] Basic Metabolic Profile (BMP )on 12-02-2024 BUN/CRE 18.0 RATIO Normal 02-19 [facility] Comment on above: Performed By: #### L 300.4310, L501.4021, L300.3900, L100.0100, L500.2500 ####[facility] [address] [place], [address] Calcium [Mass/Vol] 9.1 mg/dL Normal 7.6-11.0 [facility] Comment on above: Performed By: #### L 300.4310, L501.4021, L300.3900, L100.0100, L500.2500 ####[facility] [address] [place], [address] Chloride [Moles/Vol] 96 mmol/L Low 98-108 [facility] Comment on above: Performed By: #### L 300.4310, L501.4021, L300.3900, L100.0100, L500.2500 ####[facility] [address] [place], [address] CO2 [Moles/Vol] 20.5 mmol/L Low 21.0-32.0 [facility] Comment on above: Performed By: #### L 300.4310, L501.4021, L300.3900, L100.0100, L500.2500 ####[facility] [address] [place], [address] Creatinine [Mass/Vol] 2.90 mg/dL High 0.70-1.20 [facility] Comment on above: Performed By: #### L 300.4310, L501.4021, L300.3900, L100.0100, L500.2500 ####[facility] [address] [place], [address] ECRCL 25.31 ml/min Low 50-250 [facility] Comment on above: Performed By: #### L 300.4310, L501.4021, L300.3900, L100.0100, L500.2500 ####[facility] [address] [place], [address] GAP 14 Normal 5-15 [facility] Comment on above: Performed By: #### L 300.4310, L501.4021, L300.3900, L100.0100, L500.2500 ####[facility] [address] [place], [address] GFR/1.73 sq M.predicted among non-blacks MDRD (S/P/Bld) [Vol rate/Area] 21 mL/min/{1.73_m2} Low >60 [facility] Comment on above: Result Comment: mL/m in/1.73m2 CKD-EPI Creatinine Equation (2020) Performed By: #### L 300.4310, L501.4021, L300.3900, L100.0100, L500.2500 ####[facility] [address] [place], [address] Glucose [Mass/Vol] 175 mg/dL High 70-99 [facility] Comment on above: Performed By: #### L 300.4310, L501.4021, L300.3900, L100.0100, L500.2500 ####[facility] [address] [place], [address] Potassium [Moles/Vol] 4.6 mmol/L Normal 3.3-5.1 [facility] Comment on above: Performed By: #### L 300.4310, L501.4021, L300.3900, L100.0100, L500.2500 ####[facility] [address] [place], [address] Sodium [Moles/Vol] 131 mmol/L Low 133-145 [facility] Comment on above: Performed By: #### L 300.4310, L501.4021, L300.3900, L100.0100, L500.2500 ####[facility] [address] [place], [address] Urea nitrogen [Mass/Vol] 52 mg/dL High 4-19 [facility] Comment on above: Performed By: #### L 300.4310, L501.4021, L300.3900, L100.0100, L500.2500 ####[facility] [address] [place], [address] BUN/CRE 17.2 RATIO Normal 10-20 [facility] Comment on above: Performed By: #### L 500.2500, L100.0100 ####[facility] [address] [place], [address] Calcium [Mass/Vol] 9.3 mg/dL Normal 7.6-11.0 [facility] Comment on above: Performed By: #### L 500.2500, L100.0100 ####[facility] [address] [place] [place], [address] Chloride [Moles/Vol] 99 mmol/L Normal 98-108 [facility] Comment on above: Performed By: #### L 500.2500, L100.0100 ####[facility] [address] [place], [address] CO2 [Moles/Vol] 20.6 mmol/L Low 21.0-32.0 [facility] Comment on above: Performed By: #### L 500.2500, L100.0100 ####[facility] [address] [place], [address] Creatinine [Mass/Vol] 2.93 mg/dL High 0.70-1.20 [facility] Comment on above: Performed By: #### L 500.2500, L100.0100 ####[facility] [address] [place], [address] ECRCL 24.95 ml/min Low 50-250 [facility] Comment on above: Performed By: #### L 500.2500, L100.0100 ####[facility] [address] [place], [address] GAP 14 Normal 5-15 [facility] Comment on above: Performed By: #### L 500.2500, L100.0100 ####[facility] [address] [place], [address] GFR/1.73 sq M.predicted among non-blacks MDRD (S/P/Bld) [Vol rate/Area] 21 mL/min/{1.73_m2} Low >60 [facility] Comment on above: Result Comment: mL/m in/1.73m2 CKD-EPI Creatinine Equation (2020) Performed By: #### L 500.2500, L100.0100 ####[facility] [address] [place], [address] Glucose [Mass/Vol] 138 mg/dL High 70-99 [facility] Comment on above: Performed By: #### L 500.2500, L100.0100 ####[facility] [address] [place], [address] Potassium [Moles/Vol] 4.8 mmol/L Normal 3.3-5.1 [facility] Comment on above: Performed By: #### L 500.2500, L100.0100 ####[facility] [address] [place], [address] Sodium [Moles/Vol] 133 mmol/L Normal 133-145 [facility] Comment on above: Performed By: #### L 500.2500, L100.0100 ####[facility] [address] [place], [address] Urea nitrogen [Mass/Vol] 50 mg/dL High 4-19 [facility] Comment on above: Performed By: #### L 500.2500, L100.0100 ####[facility] [address] [place], [address] Basophil percentageOrdered B y: Rasheed Canela on 12-02-2024 Basophils/100 WBC (Bld) 0.3 % 0-1 [facility] Basophil percentageOrdered B y: Nickie Jagjit on 12-02-2024 Basophils/100 WBC (Bld) 0.1 % 0-1 [facility] Bedside Glucoseon 12-02-2024 FINGERSTICK GLU 129 mg/dL High 74-106 [facility] Comment on above: Result Comment: WILDA BARROSO OF PATIENT CARE PER NURSING PROTOCOL Performed By: #### L 501.080 ####[facility] [address] [place], [address] Brain without Contraston Brain without Contrast Normal [facility] CBC W/Diff, Automatedon 08 PLT EST SLT DEC Normal [facility] Comment on above: Performed By: #### L 300.4310, L501.4021, L300.3900, L100.0100, L500.2500 ####[facility] [address] [place], [address] SMEAR COMMENT SCANNED Normal [facility] Comment on above: Performed By: #### L 300.4310, L501.4021, L300.3900, L100.0100, L500.2500 ####[facility] [address] [place], [address] Absolute Lymph 0.85 X10 3/uL Normal 0.83-4.51 [facility] Comment on above: Performed By: #### L 500.2500, L100.0100 ####[facility] [address] [place], [address] Absolute Neut 8.8 X10 3/uL High 2.0-7.7 [facility] Comment on above: Performed By: #### L 500.2500, L100.0100 ####[facility] [address] [place], [address] Basophils/100 WBC (Bld) 0.1 % Normal 0-1 [facility] Comment on above: Performed By: #### L 500.2500, L100.0100 ####[facility] [address] [place], [address] Eosinophils/100 WBC (Bld) 0.7 % Normal 0-5 [facility] Comment on above: Performed By: #### L 500.2500, L100.0100 ####[facility] [address] [place], [address] Erythrocyte distribution width (RBC) [Ratio] 14.4 % Normal 11.6-14.6 [facility] Comment on above: Performed By: #### L 500.2500, L100.0100 ####[facility] [address] [place], [address] Hematocrit (Bld) [Volume fraction] 32.1 % Low 40-54 [facility] Comment on above: Performed By: #### L 500.2500, L100.0100 ####[facility] [address] [place], [address] Hemoglobin (Bld) [Mass/Vol] 10.4 g/dL Low 13.0-16.5 [facility] Comment on above: Performed By: #### L 500.2500, L100.0100 ####[facility] [address] [place], [address] IG% 0.700 Normal 0.0-0.9 [facility] Comment on above: Result Comment: IG% - Immature Granulocytes (promyelocytes, myelocytes andmetamyelocytes) > 1% indicates that a LEFT SHIFT is Present. Performed By: #### L 500.2500, L100.0100 ####[facility] [address] [place], [address] Lymphocytes/100 WBC (Bld) 7.6 % Low 19-41 [facility] Comment on above: Performed By: #### L 500.2500, L100.0100 ####[facility] [address] [place], [address] MCH (RBC) [Entitic mass] 29.5 pg Normal 27.0-32.0 [facility] Comment on above: Performed By: #### L 500.2500, L100.0100 ####[facility] [address] [place], [address] MCHC (RBC) [Mass/Vol] 32.4 g/dL Normal 32-36 [facility] Comment on above: Performed By: #### L 500.2500, L100.0100 ####[facility] [address] [place], [address] MCV (RBC) [Entitic vol] 91.2 fL Normal 80-94 [facility] Comment on above: Performed By: #### L 500.2500, L100.0100 ####[facility] [address] [place], [address] Monocytes/100 WBC (Bld) 12.0 % High 0-10 [facility] Comment on above: Performed By: #### L 500.2500, L100.0100 ####[facility] [address] [place], [address] Neutrophils/100 WBC (Bld) 78.9 % High 47-70 [facility] Comment on above: Performed By: #### L 500.2500, L100.0100 ####[facility] [address] [place], [address] Nucleated RBC (Bld) [#/Vol] 0 10*3/uL Normal 0-5 [facility] Comment on above: Performed By: #### L 500.2500, L100.0100 ####[facility] [address] [place], [address] Platelet mean volume (Bld) [Entitic vol] 13.1 fL High 6.2-12.0 [facility] Comment on above: Performed By: #### L 500.2500, L100.0100 ####[facility] [address] [place], [address] Platelets (Bld) [#/Vol] 113 10*3/uL Low 150-450 [facility] Comment on above: Performed By: #### L 500.2500, L100.0100 ####[facility] [address] [place], [address] RBC (Bld) [#/Vol] 3.52 10*6/uL Low 4.6-6.2 [facility] Comment on above: Performed By: #### L 500.2500, L100.0100 ####[facility] [address] [place], [address] RDW SD 47.4 fl High 35.1-43.9 [facility] Comment on above: Performed By: #### L 500.2500, L100.0100 ####[facility] [address] [place], [address] WBC (Bld) [#/Vol] 11.2 10*3/uL High 4.4-11.0 [facility] Comment on above: Performed By: #### L 500.2500, L100.0100 ####[facility] [address] [place], [address] CVS/PCIREPORTon 12-02-2024 CVS/PCIREPORT Normal [facility] Carbon dioxide, total [Moles /volume] in Central venous bloodOrdered By: Rasheed Canela on 12-02-2024 CO2 [Moles/Vol] 20.5 mmol/L Low 21.0-32.0 [facility] Carbon dioxide, total [Moles /volume] in Central venous bloodOrdered By: Nickie Danielson on 12-02-2024 CO2 [Moles/Vol] 20.6 mmol/L Low 21.0-32.0 [facility] Chloride assayOrdered By: Afshin Canela on 12-02-2024 Chloride [Moles/Vol] 96 mmol/L Low 98-108 [facility] Chloride assayOrdered By: Korina Danielson on 12-02-2024 Chloride [Moles/Vol] 99 mmol/L 98-108 [facility] Emergency Department Summary on 12-02-2024 Emergency Department Summary Normal [facility] Eosinophil percentageOrdered By: Rasheedjulian Canela on 12-02-2024 Eosinophils/100 WBC (Bld) 0.8 % 0-5 [facility] Eosinophil percentageOrdered By: Nickie Danielson on 12-02-2024 Eosinophils/100 WBC (Bld) 0.7 % 0-5 [facility] Erythrocyte distribution wid th ratioOrdered By: Rasheed Canela on 12-02-2024 Erythrocyte distribution width (RBC) [Ratio] 14.1 % 11.6-14.6 [facility] Erythrocyte distribution wid th ratioOrdered By: Nickie Danielson on 12-02-2024 Erythrocyte distribution width (RBC) [Ratio] 14.4 % 11.6-14.6 [facility] Erythrocyte distribution wid th standard deviationOrdered By: Rasheed Canela on 12-02-2024 Erythrocyte distribution width (RBC) [Ratio] 45.8 fl High 35.1-43.9 [facility] Erythrocyte distribution wid th standard deviationOrdered By: Nickie Danielson on 12-02-2024 Erythrocyte distribution width (RBC) [Ratio] 47.4 fl High 35.1-43.9 [facility] Glomerular filtration rate ( GFR) estimation/1.73 sq m using serum, plasma, or whole bOrdered By: Rasheed Canela on 12-02-2024 GFR/1.73 sq M.predicted among non-blacks MDRD (S/P/Bld) [Vol rate/Area] 21 mL/min/{1.73_m2} Low >60 [facility] Glomerular filtration rate ( GFR) estimation/1.73 sq m using serum, plasma, or whole bOrdered By: Nickie Danielson on 12-02-2024 GFR/1.73 sq M.predicted among non-blacks MDRD (S/P/Bld) [Vol rate/Area] 21 mL/min/{1.73_m2} Low >60 [facility] deOrdered By: Nickie Danielson on 12-02-2024 Glucose [Mass/Vol] 129 mg/dL High 74-106 [facility] H AND P Exam - Hospitaliston 12-02-2024 H&P Exam - Hospitalist Normal [facility] Hematocrit Auto (Bld) [Volum e fraction]Ordered By: Rasheed Canela on 12-02-2024 Hematocrit (Bld) [Volume fraction] 34.1 % Low 40-54 [facility] Hematocrit Auto (Bld) [Volum e fraction]Ordered By: Nickie Danielson on 12-02-2024 Hematocrit (Bld) [Volume fraction] 32.1 % Low 40-54 [facility] Hemoglobin measurementOrdere d By: Rasheed Canela on 12-02-2024 Hemoglobin (Bld) [Mass/Vol] 11.1 g/dL Low 13.0-16.5 [facility] Hemoglobin measurementOrdere d By: Nickie Danielson on 12-02-2024 Hemoglobin (Bld) [Mass/Vol] 10.4 g/dL Low 13.0-16.5 [facility] Immature granulocytes/100 WB C Auto (Bld)Ordered By: Rasheed Canela on 12-02-2024 Immature granulocytes/100 WBC (Bld) 0.600 % 0.0-0.9 [facility] Immature granulocytes/100 WB C Auto (Bld)Ordered By: Nickie Danielson on 12-02-2024 Immature granulocytes/100 WBC (Bld) 0.700 % 0.0-0.9 [facility] L501.4021on 12-02-2024 Trop T High Sen > [id number] Invalid Interpretation Code <=22 [facility] Comment on above: Result Comment: Crit ical Result(s) Called at: 2120 by: MOISE MENDIOLA??Results read back by same. Performed By: #### L 300.4310, L501.4021, L300.3900, L100.0100, L500.2500 ####[facility] [address] [place], [place], [id number] MCV (mean corpuscular volume ) determinationOrdered By: Rasheed Canela on 12-02-2024 MCV (RBC) [Entitic vol] 89.5 fL 80-94 [facility] MCV (mean corpuscular volume ) determinationOrdered By: Nickie Danielson on 12-02-2024 MCV (RBC) [Entitic vol] 91.2 fL 80-94 [facility] MR/CON.PCM.NEon 12-02-2024 MR/CON.PCM.NE Normal [facility] MRA Head ONLY without Contra ston 12-02-2024 MRA Head ONLY without Contrast Normal [facility] MRA Neck without Contraston 12-02-2024 MRA Neck without Contrast Normal [facility] Magnetic resonance imaging r eportOrdered By: Nghia Waters on 12-02-2024 Study report [facility] Mean corpuscular hemoglobin (MCH) determinationOrdered By: Rasheed Canela on 12-02-2024 MCH (RBC) [Entitic mass] 29.1 pg 27.0-32.0 [facility] Mean corpuscular hemoglobin (MCH) determinationOrdered By: Nickie Danielson on 12-02-2024 MCH (RBC) [Entitic mass] 29.5 pg 27.0-32.0 [facility] Monocyte percentageOrdered B y: Rasheed Canela on 12-02-2024 Monocytes/100 WBC (Bld) 12.7 % High 0-10 [facility] Monocyte percentageOrdered B y: Nickie Danielson on 12-02-2024 Monocytes/100 WBC (Bld) 12.0 % High 0-10 [facility] Neutrophil percentageOrdered By: Rasheed Canela on 12-02-2024 Neutrophils/100 WBC (Bld) 76.7 % High 47-70 [facility] Neutrophil percentageOrdered By: Nickie Danielson on 12-02-2024 Neutrophils/100 WBC (Bld) 78.9 % High 47-70 [facility] Partial Thromboplast Timeon 12-02-2024 aPTT Coag (Bld) [Time] 31.6 s Normal 24.1-36.2 [facility] Comment on above: Performed By: #### L 300.4310, L501.4021, L300.3900, L100.0100, L500.2500 ####[facility] [address] [place], [address] Platelet countOrdered By: Afshin Canela on 12-02-2024 Platelets (Bld) [#/Vol] 134 10*3/uL Low 150-450 [facility] Platelet countOrdered By: Korina Danielson on 12-02-2024 Platelets (Bld) [#/Vol] 113 10*3/uL Low 150-450 [facility] Potassium measurement (mass/ volume)Ordered By: Rasheed Canela on 12-02-2024 Potassium (Unsp spec) [Mass/Vol] 4.6 mmol/L 3.3-5.1 [facility] Potassium measurement (mass/ volume)Ordered By: Nickie Danielson on 12-02-2024 Potassium (Unsp spec) [Mass/Vol] 4.8 mmol/L 3.3-5.1 [facility] Prothrombin Time w/INRon INR Coag (PPP) [Relative time] 1.1 {INR} Normal [facility] Comment on above: Performed By: #### L 300.4310, L501.4021, L300.3900, L100.0100, L500.2500 ####[facility] [address] [place], [place], [phone] PT Coag (PPP) [Time] 14.6 s Normal 11.7-14.9 [facility] Comment on above: Performed By: #### L 300.4310, L501.4021, L300.3900, L100.0100, L500.2500 ####[facility] [address] [place], [place], [id number] Prothrombin timeOrdered By: Rasheed Canela on 12-02-2024 PT Coag (PPP) [Time] 14.6 s 11.7-14.9 [facility] RBC Auto (Bld) [#/Vol]Ordere d By: Rasheed Canela on 12-02-2024 RBC (Bld) [#/Vol] 3.81 10*6/uL Low 4.6-6.2 [facility] RBC Auto (Bld) [#/Vol]Ordere d By: Nickie Danielson on 12-02-2024 RBC (Bld) [#/Vol] 3.52 10*6/uL Low 4.6-6.2 [facility] Serum creatinine measurement (mass/volume)Ordered By: Rasheed Canela on 12-02-2024 Creatinine [Mass/Vol] 2.90 mg/dL High 0.70-1.20 [facility] Serum creatinine measurement (mass/volume)Ordered By: Nickie Danielson on 12-02-2024 Creatinine [Mass/Vol] 2.93 mg/dL High 0.70-1.20 [facility] Serum glucose measurement (m ass/volume)Ordered By: Rasheed Canela on 12-02-2024 Glucose [Mass/Vol] 175 mg/dL High 70-99 [facility] Serum glucose measurement (m ass/volume)Ordered By: Nickie Danielson on 12-02-2024 Glucose [Mass/Vol] 138 mg/dL High 70-99 [facility] Serum or plasma calcium francine urement (mass/volume)Ordered By: Rasheed Canela on 12-02-2024 Calcium [Mass/Vol] 9.1 mg/dL 7.6-11.0 [facility] Serum or plasma calcium francine urement (mass/volume)Ordered By: Nickie Danielson on 12-02-2024 Calcium [Mass/Vol] 9.3 mg/dL 7.6-11.0 [facility] Serum or plasma urea nitroge n measurement (mass/volume)Ordered By: Rasheed Canela on 12-02-2024 Urea nitrogen [Mass/Vol] 52 mg/dL High 08-19 [facility] Serum or plasma urea nitroge n measurement (mass/volume)Ordered By: Nickie Danielson on 12-02-2024 Urea nitrogen [Mass/Vol] 50 mg/dL High 08-19 [facility] Sodium levelOrdered By: Rasheed Canela on 12-02-2024 Sodium [Moles/Vol] 131 mmol/L Low 133-145 [facility] Sodium levelOrdered By: Johanna Danielson on 12-02-2024 Sodium [Moles/Vol] 133 mmol/L 133-145 [facility] White blood cell (WBC) count Ordered By: Rasheed Canela on 12-02-2024 WBC (Bld) [#/Vol] 12.7 10*3/uL High 4.4-11.0 [facility] White blood cell (WBC) count Ordered By: Nickie Danielson on 12-02-2024 WBC (Bld) [#/Vol] 11.2 10*3/uL High 4.4-11.0 [facility] 12 Lead EKGon 12-01-2024 12 Lead EKG Normal [facility] Bedside Glucoseon 12-01-2024 FINGERSTICK GLU 148 mg/dL High 74-106 [facility] Comment on above: Result Comment: WILDA BARROSO OF PATIENT CARE PER NURSING PROTOCOL Performed By: #### L 501.080 ####[facility] [address] [place], [address] FINGERSTICK GLU 203 mg/dL High 74-106 [facility] Comment on above: Result Comment: WILDA GEMENT OF PATIENT CARE PER NURSING PROTOCOL Performed By: #### L 501.080 ####[facility] [address] [place], [address] FINGERSTICK GLU 153 mg/dL High -106 [facility] Comment on above: Result Comment: WILDA GEMENT OF PATIENT CARE PER NURSING PROTOCOL Performed By: #### L 501.080 ####[facility] [address] [place], [address] FINGERSTICK GLU 187 mg/dL High -106 [facility] Comment on above: Result Comment: WILDA GEMENT OF PATIENT CARE PER NURSING PROTOCOL Performed By: #### L 501.080 ####[facility] [address] [place], [address] FINGERSTICK GLU 223 mg/dL High -106 [facility] Comment on above: Result Comment: WILDA GEMENT OF PATIENT CARE PER NURSING PROTOCOL Performed By: #### L 501.080 ####[facility] [address] [place], [address] Bilirubin, totalOrdered By: Jose Hay on 12-01-2024 Bilirubin [Mass/Vol] 1.07 mg/dL 0.00-1.30 [facility] CBC-Complete Blood Cnt No Di ffon 12-01-2024 Erythrocyte distribution width (RBC) [Ratio] 14.0 % Normal 11.6-14.6 [facility] Comment on above: Performed By: #### L 100.0500, L500.4050 ####[facility] [address] [place], [address] Hematocrit (Bld) [Volume fraction] 33.2 % Low 40-54 [facility] Comment on above: Performed By: #### L 100.0500, L500.4050 ####[facility] [address] [place], [address] Hemoglobin (Bld) [Mass/Vol] 10.8 g/dL Low 13.0-16.5 [facility] Comment on above: Performed By: #### L 100.0500, L500.4050 ####[facility] [address] [place], [address] MCH (RBC) [Entitic mass] 29.3 pg Normal 27.0-32.0 [facility] Comment on above: Performed By: #### L 100.0500, L500.4050 ####[facility] [address] [place], [address] MCHC (RBC) [Mass/Vol] 32.5 g/dL Normal 32-36 [facility] Comment on above: Performed By: #### L 100.0500, L500.4050 ####[facility] [address] [place], [address] MCV (RBC) [Entitic vol] 90.2 fL Normal 80-94 [facility] Comment on above: Performed By: #### L 100.0500, L500.4050 ####[facility] [address] [place], [address] Platelet mean volume (Bld) [Entitic vol] 12.7 fL High 6.2-12.0 [facility] Comment on above: Performed By: #### L 100.0500, L500.4050 ####[facility] [address] [place], [address] Platelets (Bld) [#/Vol] 142 10*3/uL Low 150-450 [facility] Comment on above: Performed By: #### L 100.0500, L500.4050 ####[facility] [address] [place], [address] RBC (Bld) [#/Vol] 3.68 10*6/uL Low 4.6-6.2 [facility] Comment on above: Performed By: #### L 100.0500, L500.4050 ####[facility] [address] [place] [place], [address] RDW SD 45.8 fl High 35.1-43.9 [facility] Comment on above: Performed By: #### L 100.0500, L500.4050 ####[facility] [address] [place], [address] WBC (Bld) [#/Vol] 14.6 10*3/uL High 4.4-11.0 [facility] Comment on above: Performed By: #### L 100.0500, L500.4050 ####[facility] [address] [place], [address] Cardiac rehabilitation repor tOrdered By: Natacha Fermin on 12-01-2024 Study report [facility] Comprehensive Metabolic Prof ilon 12-01-2024 Albumin [Mass/Vol] 3.7 g/dL Normal 3.4-4.8 [facility] Comment on above: Performed By: #### L 100.0500, L500.4050 ####[facility] [address] [place], [address] Albumin/Globulin [Mass ratio] 1.5 {ratio} Normal 0.9-2.4 [facility] Comment on above: Performed By: #### L 100.0500, L500.4050 ####[facility] [address] [place], [address] ALK PHOS 82 U/L Normal 40-129 [facility] Comment on above: Performed By: #### L 100.0500, L500.4050 ####[facility] [address] [place] [place], [address] ALT [Catalytic activity/Vol] 77 U/L High <=46 [facility] Comment on above: Performed By: #### L 100.0500, L500.4050 ####[facility] [address] [place], [address] AST [Catalytic activity/Vol] 497 U/L High <=37 [facility] Comment on above: Performed By: #### L 100.0500, L500.4050 ####[facility] [address] [place], [address] Bilirubin [Mass/Vol] 1.07 mg/dL Normal 0.00-1.30 [facility] Comment on above: Performed By: #### L 100.0500, L500.4050 ####[facility] [address] [place], [address] BUN/CRE 14.2 RATIO Normal 10-20 [facility] Comment on above: Performed By: #### L 100.0500, L500.4050 ####[facility] [address] [place], [address] Calcium [Mass/Vol] 8.7 mg/dL Normal 7.6-11.0 [facility] Comment on above: Performed By: #### L 100.0500, L500.4050 ####[facility] [address] [place], [address] Chloride [Moles/Vol] 100 mmol/L Normal 98-108 [facility] Comment on above: Performed By: #### L 100.0500, L500.4050 ####[facility] [address] [place], [address] CO2 [Moles/Vol] 20.3 mmol/L Low 21.0-32.0 [facility] Comment on above: Performed By: #### L 100.0500, L500.4050 ####[facility] [address] [place], [address] Creatinine [Mass/Vol] 3.16 mg/dL High 0.70-1.20 [facility] Comment on above: Performed By: #### L 100.0500, L500.4050 ####[facility] [address] [place], [address] ECRCL 23.23 ml/min Low 50-250 [facility] Comment on above: Performed By: #### L 100.0500, L500.4050 ####[facility] [address] [place], [address] GAP 14 Normal 5-15 [facility] Comment on above: Performed By: #### L 100.0500, L500.4050 ####[facility] [address] [place], [address] GFR/1.73 sq M.predicted among non-blacks MDRD (S/P/Bld) [Vol rate/Area] 19 mL/min/{1.73_m2} Low >60 [facility] Comment on above: Result Comment: mL/m in/1.73m2 CKD-EPI Creatinine Equation (2020) Performed By: #### L 100.0500, L500.4050 ####[facility] [address] [place], [address] Globulin (S) [Mass/Vol] 2.4 g/dL Normal 2.2-4.2 [facility] Comment on above: Performed By: #### L 100.0500, L500.4050 ####[facility] [address] [place], [address] Glucose [Mass/Vol] 157 mg/dL High 70-99 [facility] Comment on above: Performed By: #### L 100.0500, L500.4050 ####[facility] [address] [place], [address] Potassium [Moles/Vol] 5.0 mmol/L Normal 3.3-5.1 [facility] Comment on above: Performed By: #### L 100.0500, L500.4050 ####[facility] [address] [place], [address] Sodium [Moles/Vol] 134 mmol/L Normal 133-145 [facility] Comment on above: Performed By: #### L 100.0500, L500.4050 ####[facility] [address] [place], [address] T PROT 6.0 g/dL Normal 5.9-8.4 [facility] Comment on above: Performed By: #### L 100.0500, L500.4050 ####[facility] [address] [place], [address] Urea nitrogen [Mass/Vol] 45 mg/dL High 4-19 [facility] Comment on above: Performed By: #### L 100.0500, L500.4050 ####[facility] [address] [place], [address] Echo Limited w/Contraston Echo Limited w/Contrast Normal [facility] Electrocardiogram reportOrde red By: Marcin Araujo on 12-01-2024 EKG study [facility] Work Phone: HH, Hemoglobin AND Hematocri ton 12-01-2024 Hematocrit (Bld) [Volume fraction] 32.7 % Low 40-54 [facility] Comment on above: Performed By: #### L 100.0600 ####[facility] [address] [place], [address] Hemoglobin (Bld) [Mass/Vol] 10.6 g/dL Low 13.0-16.5 [facility] Comment on above: Performed By: #### L 100.0600 ####[facility] [address] [place], [address] Limited echocardiogram repor tOrdered By: Lance Espino on 12-01-2024 Study report [facility] Other Phone: No Panel InformationOrdered By: Jose Hay on 12-01-2024 497 U/L High <38 [facility] STROKE Brain/Head without Co nton 12-01-2024 STROKE Brain/Head without Cont Normal [facility] Serum globulin measurementOr dered By: Jose Hay on 12-01-2024 Globulin (S) [Mass/Vol] 2.4 g/dL 2.2-4.2 [facility] Serum or plasma alanine guerrero otransferase (ALT) measurementOrdered By: Jose Hay on 12-01-2024 ALT [Catalytic activity/Vol] 77 U/L High <47 [facility] Serum or plasma albumin francine urement (mass/volume)Ordered By: Jose Hay on 12-01-2024 Albumin [Mass/Vol] 3.7 g/dL 3.4-4.8 [facility] Serum or plasma albumin/glob ulin mass ratioOrdered By: Jose Hya on 12-01-2024 Albumin/Globulin [Mass ratio] 1.5 {ratio} 0.9-2.4 [facility] Serum or plasma alkaline bell sphatase measurementOrdered By: Jose Hay on 12-01-2024 ALP [Catalytic activity/Vol] 82 U/L 40-129 [facility] Total proteinOrdered By: Emmanuel Hay on 12-01-2024 Protein [Mass/Vol] 6.0 g/dL 5.9-8.4 [facility] ACT Activated Clotting Timeo n 11-30-2024 ACTk CLOT TIME 187 sec High 74-137 [facility] Comment on above: Performed By: #### L 9100.0100 ####[facility] [address] [place], [address] ACTk CLOT TIME 176 sec High 74-137 [facility] Comment on above: Performed By: #### L 9100.0100 ####[facility] [address] [place], [place], [id number] Absolute lymphocyte countOrd ered By: Isael Bernabe on 11-30-2024 Lymphocytes Auto (Unsp spec) [#/Vol] 1.93 10*3/uL 0.83-4.51 [facility] Activated partial thrombopla stin time (aPTT) in platelet poor plasma by coagulation aOrdered By: Isael Bernabe on 11-30-2024 aPTT Coag (PPP) [Time] 112.9 s High 24.1-36.2 [facility] Anion gap in Serum or Plasma Ordered By: Isael Bernabe on 11-30-2024 Anion gap [Moles/Vol] 19 mmol/L High 5-15 [facility] Automated lymphocyte count a s percentage of total leukocytesOrdered By: Isael Bernabe on 11-30-2024 Lymphocytes/100 WBC Auto (Unsp spec) 10.1 % Low 19-41 [facility] BUN/creatinine ratioOrdered By: Isael Bernabe on 11-30-2024 Urea nitrogen/Creatinine [Mass ratio] 14.4 mg/mg 10-20 [facility] Basic Metabolic Profile (BMP )on 11-30-2024 BUN/CRE 14.4 RATIO Normal -20 [facility] Comment on above: Performed By: #### L 300.4310, L500.2500, L501.4021, L300.3900, L100.0100 ####[facility] [address] [place], [place], [address] Calcium [Mass/Vol] 9.5 mg/dL Normal 7.6-11.0 [facility] Comment on above: Performed By: #### L 300.4310, L500.2500, L501.4021, L300.3900, L100.0100 ####[facility] [address] [place], [address] Chloride [Moles/Vol] 98 mmol/L Normal 98-108 [facility] Comment on above: Performed By: #### L 300.4310, L500.2500, L501.4021, L300.3900, L100.0100 ####[facility] [address] [place], [address] CO2 [Moles/Vol] 18.3 mmol/L Low 21.0-32.0 [facility] Comment on above: Performed By: #### L 300.4310, L500.2500, L501.4021, L300.3900, L100.0100 ####[facility] [address] [place], [address] Creatinine [Mass/Vol] 3.10 mg/dL High 0.70-1.20 [facility] Comment on above: Performed By: #### L 300.4310, L500.2500, L501.4021, L300.3900, L100.0100 ####[facility] [address] [place], [address] GAP 19 High 5-15 [facility] Comment on above: Performed By: #### L 300.4310, L500.2500, L501.4021, L300.3900, L100.0100 ####[facility] [address] [place], [address] GFR/1.73 sq M.predicted among non-blacks MDRD (S/P/Bld) [Vol rate/Area] 20 mL/min/{1.73_m2} Low >60 [facility] Comment on above: Result Comment: mL/m in/1.73m2 CKD-EPI Creatinine Equation (2020) Performed By: #### L 300.4310, L500.2500, L501.4021, L300.3900, L100.0100 ####[facility] [address] [place], [address] Glucose [Mass/Vol] 328 mg/dL High 70-99 [facility] Comment on above: Performed By: #### L 300.4310, L500.2500, L501.4021, L300.3900, L100.0100 ####[facility] [address] [place], [address] Potassium [Moles/Vol] 4.4 mmol/L Normal 3.3-5.1 [facility] Comment on above: Performed By: #### L 300.4310, L500.2500, L501.4021, L300.3900, L100.0100 ####[facility] [address] [place], [address] Sodium [Moles/Vol] 135 mmol/L Normal 133-145 [facility] Comment on above: Performed By: #### L 300.4310, L500.2500, L501.4021, L300.3900, L100.0100 ####[facility] [address] [place], [address] Urea nitrogen [Mass/Vol] 45 mg/dL High 4-19 [facility] Comment on above: Performed By: #### L 300.4310, L500.2500, L501.4021, L300.3900, L100.0100 ####[facility] [address] [place], [address] Basophil percentageOrdered B y: Isael Bernabe on 11-30-2024 Basophils/100 WBC (Bld) 0.2 % 0-1 [facility] Bedside Glucoseon 11-30-2024 FINGERSTICK GLU 167 mg/dL High 74-106 [facility] Comment on above: Result Comment: WILDA BARROSO OF PATIENT CARE PER NURSING PROTOCOL Performed By: #### L 501.080 ####[facility] [address] [place], [address] CBC W/Diff, Automatedon 11-02 Absolute Lymph 1.93 X10 3/uL Normal 0.83-4.51 [facility] Comment on above: Performed By: #### L 300.4310, L500.2500, L501.4021, L300.3900, L100.0100 ####[facility] [address] [place], [address] Absolute Neut 15.5 X10 3/uL High 2.0-7.7 [facility] Comment on above: Performed By: #### L 300.4310, L500.2500, L501.4021, L300.3900, L100.0100 ####[facility] [address] [place], [address] Basophils/100 WBC (Bld) 0.2 % Normal 0-1 [facility] Comment on above: Performed By: #### L 300.4310, L500.2500, L501.4021, L300.3900, L100.0100 ####[facility] [address] [place], [address] Eosinophils/100 WBC (Bld) 0.4 % Normal 0-5 [facility] Comment on above: Performed By: #### L 300.4310, L500.2500, L501.4021, L300.3900, L100.0100 ####[facility] [address] [place], [address] Erythrocyte distribution width (RBC) [Ratio] 13.5 % Normal 11.6-14.6 [facility] Comment on above: Performed By: #### L 300.4310, L500.2500, L501.4021, L300.3900, L100.0100 ####[facility] [address] [place], [address] Hematocrit (Bld) [Volume fraction] 39.6 % Low 40-54 [facility] Comment on above: Performed By: #### L 300.4310, L500.2500, L501.4021, L300.3900, L100.0100 ####[facility] [address] [place], [address] Hemoglobin (Bld) [Mass/Vol] 12.5 g/dL Low 13.0-16.5 [facility] Comment on above: Performed By: #### L 300.4310, L500.2500, L501.4021, L300.3900, L100.0100 ####[facility] [address] [place], [address] IG% 0.700 Normal 0.0-0.9 [facility] Comment on above: Result Comment: IG% - Immature Granulocytes (promyelocytes, myelocytes andmetamyelocytes) > 1% indicates that a LEFT SHIFT is Present. Performed By: #### L 300.4310, L500.2500, L501.4021, L300.3900, L100.0100 ####[facility] [address] [place], [address] Lymphocytes/100 WBC (Bld) 10.1 % Low 19-41 [facility] Comment on above: Performed By: #### L 300.4310, L500.2500, L501.4021, L300.3900, L100.0100 ####[facility] [address] [place], [address] MCH (RBC) [Entitic mass] 29.3 pg Normal 27.0-32.0 [facility] Comment on above: Performed By: #### L 300.4310, L500.2500, L501.4021, L300.3900, L100.0100 ####[facility] [address] [place], [address] MCHC (RBC) [Mass/Vol] 31.6 g/dL Low 32-36 [facility] Comment on above: Performed By: #### L 300.4310, L500.2500, L501.4021, L300.3900, L100.0100 ####[facility] [address] [place], [address] MCV (RBC) [Entitic vol] 93.0 fL Normal 80-94 [facility] Comment on above: Performed By: #### L 300.4310, L500.2500, L501.4021, L300.3900, L100.0100 ####[facility] [address] [place], [address] Monocytes/100 WBC (Bld) 7.7 % Normal 0-10 [facility] Comment on above: Performed By: #### L 300.4310, L500.2500, L501.4021, L300.3900, L100.0100 ####[facility] [address] [place], [address] Neutrophils/100 WBC (Bld) 80.9 % High 47-70 [facility] Comment on above: Performed By: #### L 300.4310, L500.2500, L501.4021, L300.3900, L100.0100 ####[facility] [address] [place], [address] Nucleated RBC (Bld) [#/Vol] 0.1 10*3/uL Normal 0-5 [facility] Comment on above: Performed By: #### L 300.4310, L500.2500, L501.4021, L300.3900, L100.0100 ####[facility] [address] [place], [address] Platelet mean volume (Bld) [Entitic vol] 13.7 fL High 6.2-12.0 [facility] Comment on above: Performed By: #### L 300.4310, L500.2500, L501.4021, L300.3900, L100.0100 ####[facility] [address] [place], [address] Platelets (Bld) [#/Vol] 168 10*3/uL Normal 150-450 [facility] Comment on above: Performed By: #### L 300.4310, L500.2500, L501.4021, L300.3900, L100.0100 ####[facility] [address] [place], [address] RBC (Bld) [#/Vol] 4.26 10*6/uL Low 4.6-6.2 [facility] Comment on above: Performed By: #### L 300.4310, L500.2500, L501.4021, L300.3900, L100.0100 ####[facility] [address] [place], [address] RDW SD 45.9 fl High 35.1-43.9 [facility] Comment on above: Performed By: #### L 300.4310, L500.2500, L501.4021, L300.3900, L100.0100 ####[facility] [address] [place], [address] WBC (Bld) [#/Vol] 19.2 10*3/uL High 4.4-11.0 [facility] Comment on above: Performed By: #### L 300.4310, L500.2500, L501.4021, L300.3900, L100.0100 ####[facility] [address] [place], [address] CBC-Complete Blood Cnt No Di ffon 11-30-2024 HCT Normal 40-54 [facility] Comment on above: Result Comment: NO S PECIMEN COLLECTED Performed By: #### L 100.0500 ####[facility] [address] [place], [address] HGB Normal 13.0-16.5 [facility] Comment on above: Result Comment: NO S PECIMEN COLLECTED Performed By: #### L 100.0500 ####[facility] [address] [place], [address] MCH Normal 27.0-32.0 [facility] Comment on above: Result Comment: NO S PECIMEN COLLECTED Performed By: #### L 100.0500 ####[facility] [address] [place], [address] MCHC Normal 32-36 [facility] Comment on above: Result Comment: NO S PECIMEN COLLECTED Performed By: #### L 100.0500 ####[facility] [address] [place], [address] MCV Normal 80-94 [facility] Comment on above: Result Comment: NO S PECIMEN COLLECTED Performed By: #### L 100.0500 ####[facility] [address] [place], [address] PLT Normal 150-450 [facility] Comment on above: Result Comment: NO S PECIMEN COLLECTED Performed By: #### L 100.0500 ####[facility] [address] [place], [address] RBC Normal 4.6-6.2 [facility] Comment on above: Result Comment: NO S PECIMEN COLLECTED Performed By: #### L 100.0500 ####[facility] [address] [place], [address] RDW CV Normal 11.6-14.6 [facility] Comment on above: Result Comment: NO S PECIMEN COLLECTED Performed By: #### L 100.0500 ####[facility] [address] [place], [address] RDW SD Normal 35.1-43.9 [facility] Comment on above: Result Comment: NO S PECIMEN COLLECTED Performed By: #### L 100.0500 ####[facility] [address] [place], [address] WBC Normal 4.4-11.0 [facility] Comment on above: Result Comment: NO S PECIMEN COLLECTED Performed By: #### L 100.0500 ####[facility] [address] [place], [address] Carbon dioxide, total [Moles /volume] in Central venous bloodOrdered By: Isael Bernabe on 11-30-2024 CO2 [Moles/Vol] 18.3 mmol/L Low 21.0-32.0 [facility] Chest 1 View (Portable)on Chest 1 View (Portable) Normal [facility] Chloride assayOrdered By: Jaylen Bernabe on 11-30-2024 Chloride [Moles/Vol] 98 mmol/L 98-108 [facility] Consultation - Cardiologyon 11-30-2024 Consultation - Cardiology Normal [facility] Emergency Department Summary on 11-30-2024 Emergency Department Summary Normal [facility] Eosinophil percentageOrdered By: Isael Bernabe on 11-30-2024 Eosinophils/100 WBC (Bld) 0.4 % 0-5 [facility] Erythrocyte distribution wid th ratioOrdered By: Isael Bernabe on 11-30-2024 Erythrocyte distribution width (RBC) [Ratio] 13.5 % 11.6-14.6 [facility] Erythrocyte distribution wid th standard deviationOrdered By: Isael Bernabe on 11-30-2024 Erythrocyte distribution width (RBC) [Ratio] 45.9 fl High 35.1-43.9 [facility] Glomerular filtration rate ( GFR) estimation/1.73 sq m using serum, plasma, or whole bOrdered By: Isael Bernabe on 11-30-2024 GFR/1.73 sq M.predicted among non-blacks MDRD (S/P/Bld) [Vol rate/Area] 20 mL/min/{1.73_m2} Low >60 [facility] H AND P Exam - Hospitaliston 11-30-2024 H&P Exam - Hospitalist Normal [facility] Hematocrit Auto (Bld) [Volum e fraction]Ordered By: Isael Bernabe on 11-30-2024 Hematocrit (Bld) [Volume fraction] 39.6 % Low 40-54 [facility] Hemoglobin A1con 11-30-2024 HbA1c (Bld) [Mass fraction] 7.0 % High <=5.6 [facility] Comment on above: Result Comment: Norm al < 5.7 % Prediabetic 5.7 - 6.4 % Diabetic >or= 6.5 % Please note range changes. Performed By: #### L 501.9953 ####[facility] [address] [place], [place], [id number] Hemoglobin A1c percentageOrd ered By: Abraham Ridley on 11-30-2024 HbA1c (Bld) [Mass fraction] 7.0 % High <5.7 [facility] Hemoglobin measurementOrdere d By: Isael Bernabe on 11-30-2024 Hemoglobin (Bld) [Mass/Vol] 12.5 g/dL Low 13.0-16.5 [facility] Immature granulocytes/100 WB C Auto (Bld)Ordered By: Isael Bernabe on 11-30-2024 Immature granulocytes/100 WBC (Bld) 0.700 % 0.0-0.9 [facility] L501.4021on 11-30-2024 Trop T High Sen 61 ng/L Invalid Interpretation Code <=22 [facility] Comment on above: Result Comment: Crit ical Result(s) Called at: 1621 by: MOISE MEDINA??Results read back by same. Performed By: #### L 300.4310, L500.2500, L501.4021, L300.3900, L100.0100 ####[facility] [address] [place], [place], [id number] MCV (mean corpuscular volume ) determinationOrdered By: Isael Bernabe on 11-30-2024 MCV (RBC) [Entitic vol] 93.0 fL 80-94 [facility] MR/QUALITYon 11-30-2024 MR/QUALITY Normal [facility] Mean corpuscular hemoglobin (MCH) determinationOrdered By: Isael Bernabe on 11-30-2024 MCH (RBC) [Entitic mass] 29.3 pg 27.0-32.0 [facility] Monocyte percentageOrdered B y: Isael Bernabe on 11-30-2024 Monocytes/100 WBC (Bld) 7.7 % 0-10 [facility] Neutrophil percentageOrdered By: Isael Bernabe on 11-30-2024 Neutrophils/100 WBC (Bld) 80.9 % High 47-70 [facility] Partial Thromboplast Timeon 11-30-2024 aPTT Coag (Bld) [Time] 112.9 s Invalid Interpretation Code 24.1-36.2 [facility] Comment on above: Result Comment: CRIT ICAL VALUE CALLED TO CAITLIN ARASH11/30/24 1720 Krysta Turcios.RESULTS READ BACK BY SAME. Performed By: #### L 300.4310, L500.2500, L501.4021, L300.3900, L100.0100 ####[facility] [address] [place], [address] Platelet countOrdered By: Jaylen Bernabe on 11-30-2024 Platelets (Bld) [#/Vol] 168 10*3/uL 150-450 [facility] Potassium measurement (mass/ volume)Ordered By: Isael Bernabe on 11-30-2024 Potassium (Unsp spec) [Mass/Vol] 4.4 mmol/L 3.3-5.1 [facility] Prothrombin Time w/INRon INR Coag (PPP) [Relative time] 1.3 {INR} Normal [facility] Comment on above: Performed By: #### L 300.4310, L500.2500, L501.4021, L300.3900, L100.0100 ####[facility] [address] [place], [address] PT Coag (PPP) [Time] 16.1 s High 11.7-14.9 [facility] Comment on above: Performed By: #### L 300.4310, L500.2500, L501.4021, L300.3900, L100.0100 ####[facility] [address] [place], [address] Prothrombin timeOrdered By: Isael Bernabe on 11-30-2024 PT Coag (PPP) [Time] 16.1 s High 11.7-14.9 [facility] RBC Auto (Bld) [#/Vol]Ordere d By: Isael Bernabe on 11-30-2024 RBC (Bld) [#/Vol] 4.26 10*6/uL Low 4.6-6.2 [facility] Serum creatinine measurement (mass/volume)Ordered By: Isael Bernabe on 11-30-2024 Creatinine [Mass/Vol] 3.10 mg/dL High 0.70-1.20 [facility] Serum glucose measurement (m ass/volume)Ordered By: Isael Bernabe on 11-30-2024 Glucose [Mass/Vol] 328 mg/dL High 70-99 [facility] Serum or plasma calcium francine urement (mass/volume)Ordered By: Isael Bernabe on 11-30-2024 Calcium [Mass/Vol] 9.5 mg/dL 7.6-11.0 [facility] Serum or plasma urea nitroge n measurement (mass/volume)Ordered By: Isael Bernabe on 11-30-2024 Urea nitrogen [Mass/Vol] 45 mg/dL High 4-19 [facility] Sodium levelOrdered By: Isael Bernabe on 11-30-2024 Sodium [Moles/Vol] 135 mmol/L 133-145 [facility] Troponin T HS 2 HRon 025 Trop T High Sen Normal <=22 [facility] Comment on above: Result Comment: Edy crews via OM: Ordered Performed By: #### L 499.0042 ####[facility] [address] [place], [place], [id number] Troponin T HS 4 HRon 025 Trop T High Sen Normal <=22 [facility] Comment on above: Result Comment: Edy crews via OM: Ordered Performed By: #### L 499.0043 ####[facility] [address] [place], [place], [id number] Troponin T.cardiac [Mass/vol ume] in Serum or Plasma by High sensitivity methodOrdered By: Isael Bernabe on 11-30-2024 Troponin T.cardiac High sensitivity method [Mass/Vol] 61 ng/L High <22 [facility] White blood cell (WBC) count Ordered By: Isael Bernabe on 11-30-2024 WBC (Bld) [#/Vol] 19.2 10*3/uL High 4.4-11.0 [facility] ACT Activated Clotting Timeo n 11-28-2024 ACTk CLOT TIME 227 sec High 74-137 [facility] Comment on above: Performed By: #### L 9100.0100 ####[facility] [address] [place], [address] ACTk CLOT TIME 205 sec High 74-137 [facility] Comment on above: Performed By: #### L 9100.0100 ####[facility] [address] [place], [address] Anion gap in Serum or Plasma Ordered By: Jose Hay on 11-28-2024 Anion gap [Moles/Vol] 13 mmol/L 5-15 [facility] BUN/creatinine ratioOrdered By: Jose Hay on 11-28-2024 Urea nitrogen/Creatinine [Mass ratio] 15.2 mg/mg 10-20 [facility] Bilirubin, totalOrdered By: Jose Hay on 11-28-2024 Bilirubin [Mass/Vol] 0.78 mg/dL 0.00-1.30 [facility] CBC-Complete Blood Cnt No Di ffon 11-28-2024 Erythrocyte distribution width (RBC) [Ratio] 13.6 % Normal 11.6-14.6 [facility] Comment on above: Performed By: #### L 500.4050, L100.0500 ####[facility] [address] [place], [address] Hematocrit (Bld) [Volume fraction] 35.3 % Low 40-54 [facility] Comment on above: Performed By: #### L 500.4050, L100.0500 ####[facility] [address] [place], [address] Hemoglobin (Bld) [Mass/Vol] 11.3 g/dL Low 13.0-16.5 [facility] Comment on above: Performed By: #### L 500.4050, L100.0500 ####[facility] [address] [place], [address] MCH (RBC) [Entitic mass] 29.4 pg Normal 27.0-32.0 [facility] Comment on above: Performed By: #### L 500.4050, L100.0500 ####[facility] [address] [place], [address] MCHC (RBC) [Mass/Vol] 32.0 g/dL Normal 32-36 [facility] Comment on above: Performed By: #### L 500.4050, L100.0500 ####[facility] [address] [place], [address] MCV (RBC) [Entitic vol] 91.7 fL Normal 80-94 [facility] Comment on above: Performed By: #### L 500.4050, L100.0500 ####[facility] [address] [place], [address] Platelet mean volume (Bld) [Entitic vol] 12.6 fL High 6.2-12.0 [facility] Comment on above: Performed By: #### L 500.4050, L100.0500 ####[facility] [address] [place], [address] Platelets (Bld) [#/Vol] 108 10*3/uL Low 150-450 [facility] Comment on above: Performed By: #### L 500.4050, L100.0500 ####[facility] [address] [place], [address] RBC (Bld) [#/Vol] 3.85 10*6/uL Low 4.6-6.2 [facility] Comment on above: Performed By: #### L 500.4050, L100.0500 ####[facility] [address] [place], [address] RDW SD 46.1 fl High 35.1-43.9 [facility] Comment on above: Performed By: #### L 500.4050, L100.0500 ####[facility] [address] [place], [address] WBC (Bld) [#/Vol] 7.1 10*3/uL Normal 4.4-11.0 [facility] Comment on above: Performed By: #### L 500.4050, L100.0500 ####[facility] [address] [place], [address] Carbon dioxide, total [Moles /volume] in Central venous bloodOrdered By: Jose Hay on 11-28-2024 CO2 [Moles/Vol] 23.7 mmol/L 21.0-32.0 [facility] Chloride assayOrdered By: Harsh Hay on 11-28-2024 Chloride [Moles/Vol] 102 mmol/L 98-108 [facility] Comprehensive Metabolic Prof ilon 11-28-2024 Albumin [Mass/Vol] 3.8 g/dL Normal 3.4-4.8 [facility] Comment on above: Performed By: #### L 500.4050, L100.0500 ####[facility] [address] [place], [address] Albumin/Globulin [Mass ratio] 1.4 {ratio} Normal 0.9-2.4 [facility] Comment on above: Performed By: #### L 500.4050, L100.0500 ####[facility] [address] [place], [address] ALK PHOS 93 U/L Normal 40-129 [facility] Comment on above: Performed By: #### L 500.4050, L100.0500 ####[facility] [address] [place], [address] ALT [Catalytic activity/Vol] 27 U/L Normal <=46 [facility] Comment on above: Result Comment: Hemo lysis present, Results??could be affected.?? Performed By: #### L 500.4050, L100.0500 ####[facility] [address] [place], [address] AST [Catalytic activity/Vol] 33 U/L Normal <=37 [facility] Comment on above: Result Comment: Hemo lysis present, Results??could be affected.?? Performed By: #### L 500.4050, L100.0500 ####[facility] [address] [place], [address] Bilirubin [Mass/Vol] 0.78 mg/dL Normal 0.00-1.30 [facility] Comment on above: Performed By: #### L 500.4050, L100.0500 ####[facility] [address] [place], [address] BUN/CRE 15.2 RATIO Normal 10-20 [facility] Comment on above: Performed By: #### L 500.4050, L100.0500 ####[facility] [address] [place], [address] Calcium [Mass/Vol] 9.2 mg/dL Normal 7.6-11.0 [facility] Comment on above: Performed By: #### L 500.4050, L100.0500 ####[facility] [address] [place], [address] Chloride [Moles/Vol] 102 mmol/L Normal 98-108 [facility] Comment on above: Performed By: #### L 500.4050, L100.0500 ####[facility] [address] [place], [address] CO2 [Moles/Vol] 23.7 mmol/L Normal 21.0-32.0 [facility] Comment on above: Performed By: #### L 500.4050, L100.0500 ####[facility] [address] [place], [address] Creatinine [Mass/Vol] 1.93 mg/dL High 0.70-1.20 [facility] Comment on above: Performed By: #### L 500.4050, L100.0500 ####[facility] [address] [place], [address] ECRCL 37.66 ml/min Low 50-250 [facility] Comment on above: Performed By: #### L 500.4050, L100.0500 ####[facility] [address] [place], [address] GAP 13 Normal 5-15 [facility] Comment on above: Performed By: #### L 500.4050, L100.0500 ####[facility] [address] [place], [address] GFR/1.73 sq M.predicted among non-blacks MDRD (S/P/Bld) [Vol rate/Area] 35 mL/min/{1.73_m2} Low >60 [facility] Comment on above: Result Comment: mL/m in/1.73m2 CKD-EPI Creatinine Equation (2020) Performed By: #### L 500.4050, L100.0500 ####[facility] [address] [place], [address] Globulin (S) [Mass/Vol] 2.8 g/dL Normal 2.2-4.2 [facility] Comment on above: Performed By: #### L 500.4050, L100.0500 ####[facility] [address] [place], [address] Glucose [Mass/Vol] 130 mg/dL High 70-99 [facility] Comment on above: Performed By: #### L 500.4050, L100.0500 ####[facility] [address] [place], [address] Potassium [Moles/Vol] 4.4 mmol/L Normal 3.3-5.1 [facility] Comment on above: Result Comment: Hemo lysis present, Results??could be affected.?? Performed By: #### L 500.4050, L100.0500 ####[facility] [address] [place], [address] Sodium [Moles/Vol] 139 mmol/L Normal 133-145 [facility] Comment on above: Performed By: #### L 500.4050, L100.0500 ####[facility] [address] [place], [address] T PROT 6.6 g/dL Normal 5.9-8.4 [facility] Comment on above: Performed By: #### L 500.4050, L100.0500 ####[facility] [address] [place], [address] Urea nitrogen [Mass/Vol] 29 mg/dL High 4-19 [facility] Comment on above: Performed By: #### L 500.4050, L100.0500 ####[facility] [address] [place], [address] Erythrocyte distribution wid th ratioOrdered By: Jose Hay on 11-28-2024 Erythrocyte distribution width (RBC) [Ratio] 13.6 % 11.6-14.6 [facility] Erythrocyte distribution wid th standard deviationOrdered By: Jose Hay on 11-28-2024 Erythrocyte distribution width (RBC) [Ratio] 46.1 fl High 35.1-43.9 [facility] Glomerular filtration rate ( GFR) estimation/1.73 sq m using serum, plasma, or whole bOrdered By: Jose Hay on 11-28-2024 GFR/1.73 sq M.predicted among non-blacks MDRD (S/P/Bld) [Vol rate/Area] 35 mL/min/{1.73_m2} Low >60 [facility] Hematocrit Auto (Bld) [Volum e fraction]Ordered By: Jose Hay on 11-28-2024 Hematocrit (Bld) [Volume fraction] 35.3 % Low 40-54 [facility] Hemoglobin measurementOrdere d By: Jose Hay on 11-28-2024 Hemoglobin (Bld) [Mass/Vol] 11.3 g/dL Low 13.0-16.5 [facility] MCV (mean corpuscular volume ) determinationOrdered By: Jose Hay on 11-28-2024 MCV (RBC) [Entitic vol] 91.7 fL 80-94 [facility] Mean corpuscular hemoglobin (MCH) determinationOrdered By: Jose Hay on 11-28-2024 MCH (RBC) [Entitic mass] 29.4 pg 27.0-32.0 [facility] No Panel InformationOrdered By: Jose Hay on 11-28-2024 33 U/L <38 [facility] Platelet countOrdered By: Harsh Hay on 11-28-2024 Platelets (Bld) [#/Vol] 108 10*3/uL Low 150-450 [facility] Potassium measurement (mass/ volume)Ordered By: Jose Hay on 11-28-2024 Potassium (Unsp spec) [Mass/Vol] 4.4 mmol/L 3.3-5.1 [facility] RBC Auto (Bld) [#/Vol]Ordere d By: Jose Hay on 11-28-2024 RBC (Bld) [#/Vol] 3.85 10*6/uL Low 4.6-6.2 [facility] Serum creatinine measurement (mass/volume)Ordered By: Jose Hay on 11-28-2024 Creatinine [Mass/Vol] 1.93 mg/dL High 0.70-1.20 [facility] Serum globulin measurementOr dered By: Jose Hay on 11-28-2024 Globulin (S) [Mass/Vol] 2.8 g/dL 2.2-4.2 [facility] Serum glucose measurement (m ass/volume)Ordered By: Jose Hay on 11-28-2024 Glucose [Mass/Vol] 130 mg/dL High 70-99 [facility] Serum or plasma alanine guerrero otransferase (ALT) measurementOrdered By: Jose Hay on 11-28-2024 ALT [Catalytic activity/Vol] 27 U/L <47 [facility] Serum or plasma albumin francine urement (mass/volume)Ordered By: Jose Hay on 11-28-2024 Albumin [Mass/Vol] 3.8 g/dL 3.4-4.8 [facility] Serum or plasma albumin/glob ulin mass ratioOrdered By: Jose Hay on 11-28-2024 Albumin/Globulin [Mass ratio] 1.4 {ratio} 0.9-2.4 [facility] Serum or plasma alkaline bell sphatase measurementOrdered By: Jose Hay on 11-28-2024 ALP [Catalytic activity/Vol] 93 U/L 40-129 [facility] Serum or plasma calcium francine urement (mass/volume)Ordered By: Jose Hay on 11-28-2024 Calcium [Mass/Vol] 9.2 mg/dL 7.6-11.0 [facility] Serum or plasma urea nitroge n measurement (mass/volume)Ordered By: Jose Hay on 11-28-2024 Urea nitrogen [Mass/Vol] 29 mg/dL High 4-19 [facility] Sodium levelOrdered By: Ernst Hay on 11-28-2024 Sodium [Moles/Vol] 139 mmol/L 133-145 [facility] Total proteinOrdered By: Emmanuel Hay on 11-28-2024 Protein [Mass/Vol] 6.6 g/dL 5.9-8.4 [facility] White blood cell (WBC) count Ordered By: Jose Hay on 11-28-2024 WBC (Bld) [#/Vol] 7.1 10*3/uL 4.4-11.0 [facility] 12 Lead EKGon 11-27-2024 12 Lead EKG Normal [facility] Cardiac rehabilitation repor tOrdered By: Karrie Arceo on 11-27-2024 Study report [facility] Discharge Instructionon - Discharge Instruction Normal [facility] 12 Lead EKGon 11-26-2024 12 Lead EKG Normal [facility] Absolute lymphocyte countOrd ered By: Isael Bernabe on 11-26-2024 Lymphocytes Auto (Unsp spec) [#/Vol] 1.53 10*3/uL 0.83-4.51 [facility] Anion gap in Serum or Plasma Ordered By: Isael Bernbae on 11-26-2024 Anion gap [Moles/Vol] 15 mmol/L 5- [facility] Automated lymphocyte count a s percentage of total leukocytesOrdered By: Isael Bernabe on 11-26-2024 Lymphocytes/100 WBC Auto (Unsp spec) 16.7 % Low 19-41 [facility] BUN/creatinine ratioOrdered By: Isael Bernabe on 11-26-2024 Urea nitrogen/Creatinine [Mass ratio] 18.2 mg/mg 10- [facility] Basic Metabolic Profile (BMP )on 11-26-2024 BUN/CRE 18.2 RATIO Normal - [facility] Comment on above: Performed By: #### L 500.2500, L100.0100, L501.4021, L503.7505 ####[facility] [address] [place], [address] Calcium [Mass/Vol] 9.2 mg/dL Normal 7.6-11.0 [facility] Comment on above: Performed By: #### L 500.2500, L100.0100, L501.4021, L503.7505 ####[facility] [address] [place], [address] Chloride [Moles/Vol] 100 mmol/L Normal 98-108 [facility] Comment on above: Performed By: #### L 500.2500, L100.0100, L501.4021, L503.7505 ####[facility] [address] [place], [address] CO2 [Moles/Vol] 21.5 mmol/L Normal 21.0-32.0 [facility] Comment on above: Performed By: #### L 500.2500, L100.0100, L501.4021, L503.7505 ####[facility] [address] [place], [address] Creatinine [Mass/Vol] 2.34 mg/dL High 0.70-1.20 [facility] Comment on above: Performed By: #### L 500.2500, L100.0100, L501.4021, L503.7505 ####[facility] [address] [place], [address] ECRCL 31.97 ml/min Low 50-250 [facility] Comment on above: Performed By: #### L 500.2500, L100.0100, L501.4021, L503.7505 ####[facility] [address] [place], [address] GAP 15 Normal 5-15 [facility] Comment on above: Performed By: #### L 500.2500, L100.0100, L501.4021, L503.7505 ####[facility] [address] [place], [address] GFR/1.73 sq M.predicted among non-blacks MDRD (S/P/Bld) [Vol rate/Area] 28 mL/min/{1.73_m2} Low >60 [facility] Comment on above: Result Comment: mL/m in/1.73m2 CKD-EPI Creatinine Equation (2020) Performed By: #### L 500.2500, L100.0100, L501.4021, L503.7505 ####[facility] [address] [place], [address] Glucose [Mass/Vol] 275 mg/dL High 70-99 [facility] Comment on above: Performed By: #### L 500.2500, L100.0100, L501.4021, L503.7505 ####[facility] [address] [place], [address] Potassium [Moles/Vol] 4.4 mmol/L Normal 3.3-5.1 [facility] Comment on above: Performed By: #### L 500.2500, L100.0100, L501.4021, L503.7505 ####[facility] [address] [place], [address] Sodium [Moles/Vol] 137 mmol/L Normal 133-145 [facility] Comment on above: Performed By: #### L 500.2500, L100.0100, L501.4021, L503.7505 ####[facility] [address] [place], [address] Urea nitrogen [Mass/Vol] 43 mg/dL High 4-19 [facility] Comment on above: Performed By: #### L 500.2500, L100.0100, L501.4021, L503.7505 ####[facility] [address] [place], [address] Basophil percentageOrdered B y: Isael Bernabe on 11-26-2024 Basophils/100 WBC (Bld) 0.3 % 0-1 [facility] Brain/Head without Contrasto n 11-26-2024 Brain/Head without Contrast Normal [facility] [facility] W/Diff, Automatedon 07- Absolute Lymph 1.53 X10 3/uL Normal 0.83-4.51 [facility] Comment on above: Performed By: #### L 500.2500, L100.0100, L501.4021, L503.7505 ####[facility] [address] [place], [address] Absolute Neut 6.6 X10 3/uL Normal 2.0-7.7 [facility] Comment on above: Performed By: #### L 500.2500, L100.0100, L501.4021, L503.7505 ####[facility] [address] [place], [address] Basophils/100 WBC (Bld) 0.3 % Normal 0-1 [facility] Comment on above: Performed By: #### L 500.2500, L100.0100, L501.4021, L503.7505 ####[facility] [address] [place], [address] Eosinophils/100 WBC (Bld) 1.3 % Normal 0-5 [facility] Comment on above: Performed By: #### L 500.2500, L100.0100, L501.4021, L503.7505 ####[facility] [address] [place], [address] Erythrocyte distribution width (RBC) [Ratio] 13.9 % Normal 11.6-14.6 [facility] Comment on above: Performed By: #### L 500.2500, L100.0100, L501.4021, L503.7505 ####[facility] [address] [place], [address] Hematocrit (Bld) [Volume fraction] 36.7 % Low 40-54 [facility] Comment on above: Performed By: #### L 500.2500, L100.0100, L501.4021, L503.7505 ####[facility] [address] [place], [address] Hemoglobin (Bld) [Mass/Vol] 11.8 g/dL Low 13.0-16.5 [facility] Comment on above: Performed By: #### L 500.2500, L100.0100, L501.4021, L503.7505 ####[facility] [address] [place], [address] IG% 0.400 Normal 0.0-0.9 [facility] Comment on above: Result Comment: IG% - Immature Granulocytes (promyelocytes, myelocytes andmetamyelocytes) > 1% indicates that a LEFT SHIFT is Present. Performed By: #### L 500.2500, L100.0100, L501.4021, L503.7505 ####[facility] [address] [place], [address] Lymphocytes/100 WBC (Bld) 16.7 % Low 19-41 [facility] Comment on above: Performed By: #### L 500.2500, L100.0100, L501.4021, L503.7505 ####[facility] [address] [place], [address] MCH (RBC) [Entitic mass] 29.2 pg Normal 27.0-32.0 [facility] Comment on above: Performed By: #### L 500.2500, L100.0100, L501.4021, L503.7505 ####[facility] [address] [place], [address] MCHC (RBC) [Mass/Vol] 32.2 g/dL Normal 32-36 [facility] Comment on above: Performed By: #### L 500.2500, L100.0100, L501.4021, L503.7505 ####[facility] [address] [place], [address] MCV (RBC) [Entitic vol] 90.8 fL Normal 80-94 [facility] Comment on above: Performed By: #### L 500.2500, L100.0100, L501.4021, L503.7505 ####[facility] [address] [place], [address] Monocytes/100 WBC (Bld) 9.5 % Normal 0-10 [facility] Comment on above: Performed By: #### L 500.2500, L100.0100, L501.4021, L503.7505 ####[facility] [address] [place], [address] Neutrophils/100 WBC (Bld) 71.8 % High 47-70 [facility] Comment on above: Performed By: #### L 500.2500, L100.0100, L501.4021, L503.7505 ####[facility] [address] [place], [address] Nucleated RBC (Bld) [#/Vol] 0 10*3/uL Normal 0-5 [facility] Comment on above: Performed By: #### L 500.2500, L100.0100, L501.4021, L503.7505 ####[facility] [address] [place], [address] Platelet mean volume (Bld) [Entitic vol] 12.8 fL High 6.2-12.0 [facility] Comment on above: Performed By: #### L 500.2500, L100.0100, L501.4021, L503.7505 ####[facility] [address] [place], [address] Platelets (Bld) [#/Vol] 132 10*3/uL Low 150-450 [facility] Comment on above: Performed By: #### L 500.2500, L100.0100, L501.4021, L503.7505 ####[facility] [address] [place], [address] RBC (Bld) [#/Vol] 4.04 10*6/uL Low 4.6-6.2 [facility] Comment on above: Performed By: #### L 500.2500, L100.0100, L501.4021, L503.7505 ####[facility] [address] [place], [address] RDW SD 46.6 fl High 35.1-43.9 [facility] Comment on above: Performed By: #### L 500.2500, L100.0100, L501.4021, L503.7505 ####[facility] [address] [place], [address] WBC (Bld) [#/Vol] 9.2 10*3/uL Normal 4.4-11.0 [facility] Comment on above: Performed By: #### L 500.2500, L100.0100, L501.4021, L503.7505 ####[facility] [address] [place], [place], [address] Carbon dioxide, total [Moles /volume] in Central venous bloodOrdered By: Isael Bernabe on 11-26-2024 CO2 [Moles/Vol] 21.5 mmol/L 21.0-32.0 [facility] Chest 1 View (Portable)on Chest 1 View (Portable) Normal [facility] Chloride assayOrdered By: Jaylen Bernabe on 11-26-2024 Chloride [Moles/Vol] 100 mmol/L 98-108 [facility] Emergency Department Summary on 11-26-2024 Emergency Department Summary Normal [facility] Eosinophil percentageOrdered By: Isael Bernabe on 11-26-2024 Eosinophils/100 WBC (Bld) 1.3 % 0-5 [facility] Erythrocyte distribution wid th ratioOrdered By: Isael Bernabe on 11-26-2024 Erythrocyte distribution width (RBC) [Ratio] 13.9 % 11.6-14.6 [facility] Erythrocyte distribution wid th standard deviationOrdered By: Isael Bernabe on 11-26-2024 Erythrocyte distribution width (RBC) [Ratio] 46.6 fl High 35.1-43.9 [facility] Glomerular filtration rate ( GFR) estimation/1.73 sq m using serum, plasma, or whole bOrdered By: Isael Bernabe on 11-26-2024 GFR/1.73 sq M.predicted among non-blacks MDRD (S/P/Bld) [Vol rate/Area] 28 mL/min/{1.73_m2} Low >60 [facility] Hand Min 3 Viewson 5 Hand Min 3 Views Normal [facility] Hematocrit Auto (Bld) [Volum e fraction]Ordered By: Isael Bernabe on 11-26-2024 Hematocrit (Bld) [Volume fraction] 36.7 % Low 40-54 [facility] Hemoglobin measurementOrdere d By: Isael Bernabe on 11-26-2024 Hemoglobin (Bld) [Mass/Vol] 11.8 g/dL Low 13.0-16.5 [facility] Immature granulocytes/100 WB C Auto (Bld)Ordered By: Isael Bernabe on 11-26-2024 Immature granulocytes/100 WBC (Bld) 0.400 % 0.0-0.9 [facility] Knee 4 or More Viewson 11-26 Knee 4 or More Views Normal [facility] Knee 4 or More Views Normal [facility] L501.4021on 11-26-2024 Trop T High Sen 18 ng/L Normal <=22 [facility] Comment on above: Performed By: #### L 500.2500, L100.0100, L501.4021, L503.7505 ####[facility] [address] [place], [address] MCV (mean corpuscular volume ) determinationOrdered By: Isael Bernabe on 11-26-2024 MCV (RBC) [Entitic vol] 90.8 fL 80-94 [facility] Mean corpuscular hemoglobin (MCH) determinationOrdered By: Isael Bernabe on 11-26-2024 MCH (RBC) [Entitic mass] 29.2 pg 27.0-32.0 [facility] Monocyte percentageOrdered B y: Isael Bernabe on 11-26-2024 Monocytes/100 WBC (Bld) 9.5 % 0-10 [facility] Natriuretic peptide.B prohor efrem N-Terminal [Mass/volume] in Serum or PlasmaOrdered By: Isael Bernabe on 11-26-2024 Natriuretic peptide.B prohormone N-Terminal [Mass/Vol] 162 pg/mL <1800 [facility] Neutrophil percentageOrdered By: Isael Bernabe on 11-26-2024 Neutrophils/100 WBC (Bld) 71.8 % High 47-70 [facility] Platelet countOrdered By: Jaylen Bernabe on 11-26-2024 Platelets (Bld) [#/Vol] 132 10*3/uL Low 150-450 [facility] Potassium measurement (mass/ volume)Ordered By: Isael Bernabe on 11-26-2024 Potassium (Unsp spec) [Mass/Vol] 4.4 mmol/L 3.3-5.1 [facility] Pro- Brain NATRIURETIC PEPTI Sharon 11-26-2024 Natriuretic peptide B (Bld) [Mass/Vol] 162 pg/mL Normal <=1800 [facility] Comment on above: Result Comment: Hear t Failure Unlikely: < 300 pg/mLHeart Failure Likely< 50 Years: > 450 pg/mL50-75 Years: > 900 pg/mL>75 Years: > 1800 pg/mL Performed By: #### L 500.2500, L100.0100, L501.4021, L503.7505 ####[facility] [address] [place], [address] RBC Auto (Bld) [#/Vol]Ordere d By: Isael Bernabe on 11-26-2024 RBC (Bld) [#/Vol] 4.04 10*6/uL Low 4.6-6.2 [facility] Serum creatinine measurement (mass/volume)Ordered By: Isael Bernabe on 11-26-2024 Creatinine [Mass/Vol] 2.34 mg/dL High 0.70-1.20 [facility] Serum glucose measurement (m ass/volume)Ordered By: Isael Bernabe on 11-26-2024 Glucose [Mass/Vol] 275 mg/dL High 70-99 [facility] Serum or plasma calcium francine urement (mass/volume)Ordered By: Isael Bernabe on 11-26-2024 Calcium [Mass/Vol] 9.2 mg/dL 7.6-11.0 [facility] Serum or plasma urea nitroge n measurement (mass/volume)Ordered By: Isael Bernabe on 11-26-2024 Urea nitrogen [Mass/Vol] 43 mg/dL High 4-19 [facility] Sodium levelOrdered By: Isael Bernabe on 11-26-2024 Sodium [Moles/Vol] 137 mmol/L 133-145 [facility] Spine Cervical without Contr ason 11-26-2024 Spine Cervical without Contras Normal [facility] Troponin T HS 2 HRon 025 Trop T High Sen 20 ng/L Normal <=22 [facility] Comment on above: Performed By: #### L 499.0042 ####[facility] [address] [place], [place], [address] Troponin T HS 4 HRon 025 Trop T High Sen Normal <=22 [facility] Comment on above: Result Comment: Canc elled via OM: Order cancelled - Patient discharged Performed By: #### L 499.0043 ####[facility] [address] [place], [place], [address] Troponin T.cardiac [Mass/vol ume] in Serum or Plasma by High sensitivity methodOrdered By: Isael Bernabe on 11-26-2024 Troponin T.cardiac High sensitivity method [Mass/Vol] 20 ng/L <22 [facility] Troponin T.cardiac High sensitivity method [Mass/Vol] 18 ng/L <22 [facility] White blood cell (WBC) count Ordered By: Isael Bernabe on 11-26-2024 WBC (Bld) [#/Vol] 9.2 10*3/uL 4.4-11.0 [facility] Absolute lymphocyte countOrd ered By: Gustabo Pérez on 11-22-2024 Lymphocytes Auto (Unsp spec) [#/Vol] 1.37 10*3/uL 0.83-4.51 [facility] Anion gap in Serum or Plasma Ordered By: Gustabo Pérez on 11-22-2024 Anion gap [Moles/Vol] 15 mmol/L 5-15 [facility] Automated lymphocyte count a s percentage of total leukocytesOrdered By: Gustabo Pérez on 11-22-2024 Lymphocytes/100 WBC Auto (Unsp spec) 16.1 % Low 19-41 [facility] BUN/creatinine ratioOrdered By: Gustabo Pérez on 11-22-2024 Urea nitrogen/Creatinine [Mass ratio] 15.6 mg/mg - [facility] Basic Metabolic Profile (BMP )on 11-22-2024 BUN/CRE 15.6 RATIO Normal - [facility] Comment on above: Performed By: #### L 503.7505, L100.0100, L500.2500 ####[facility] [address] [place], [address] Calcium [Mass/Vol] 9.1 mg/dL Normal 7.6-11.0 [facility] Comment on above: Performed By: #### L 503.7505, L100.0100, L500.2500 ####[facility] [address] [place], [address] Chloride [Moles/Vol] 102 mmol/L Normal 98-108 [facility] Comment on above: Performed By: #### L 503.7505, L100.0100, L500.2500 ####[facility] [address] [place], [address] CO2 [Moles/Vol] 21.6 mmol/L Normal 21.0-32.0 [facility] Comment on above: Performed By: #### L 503.7505, L100.0100, L500.2500 ####[facility] [address] [place], [address] Creatinine [Mass/Vol] 2.51 mg/dL High 0.70-1.20 [facility] Comment on above: Performed By: #### L 503.7505, L100.0100, L500.2500 ####[facility] [address] [place], [address] GAP 15 Normal 5-15 [facility] Comment on above: Performed By: #### L 503.7505, L100.0100, L500.2500 ####[facility] [address] [place], [address] GFR/1.73 sq M.predicted among non-blacks MDRD (S/P/Bld) [Vol rate/Area] 25 mL/min/{1.73_m2} Low >60 [facility] Comment on above: Result Comment: mL/m in/1.73m2 CKD-EPI Creatinine Equation (2020) Performed By: #### L 503.7505, L100.0100, L500.2500 ####[facility] [address] [place], [address] Glucose [Mass/Vol] 262 mg/dL High 70-99 [facility] Comment on above: Performed By: #### L 503.7505, L100.0100, L500.2500 ####[facility] [address] [place], [address] Potassium [Moles/Vol] 4.8 mmol/L Normal 3.3-5.1 [facility] Comment on above: Performed By: #### L 503.7505, L100.0100, L500.2500 ####[facility] [address] [place], [address] Sodium [Moles/Vol] 139 mmol/L Normal 133-145 [facility] Comment on above: Performed By: #### L 503.7505, L100.0100, L500.2500 ####[facility] [address] [place], [address] Urea nitrogen [Mass/Vol] 39 mg/dL High 4-19 [facility] Comment on above: Performed By: #### L 503.7505, L100.0100, L500.2500 ####[facility] [address] [place], [address] Basophil percentageOrdered B y: Gustabo Pérez on 11-22-2024 Basophils/100 WBC (Bld) 0.4 % 0-1 [facility] CBC W/Diff, Automatedon 11-01 Absolute Lymph 1.37 X10 3/uL Normal 0.83-4.51 [facility] Comment on above: Performed By: #### L 503.7505, L100.0100, L500.2500 ####[facility] [address] [place], [address] Absolute Neut 6.2 X10 3/uL Normal 2.0-7.7 [facility] Comment on above: Performed By: #### L 503.7505, L100.0100, L500.2500 ####[facility] [address] [place], [address] Basophils/100 WBC (Bld) 0.4 % Normal 0-1 [facility] Comment on above: Performed By: #### L 503.7505, L100.0100, L500.2500 ####[facility] [address] [place], [address] Eosinophils/100 WBC (Bld) 1.5 % Normal 0-5 [facility] Comment on above: Performed By: #### L 503.7505, L100.0100, L500.2500 ####[facility] [address] [place], [address] Erythrocyte distribution width (RBC) [Ratio] 13.8 % Normal 11.6-14.6 [facility] Comment on above: Performed By: #### L 503.7505, L100.0100, L500.2500 ####[facility] [address] [place], [address] Hematocrit (Bld) [Volume fraction] 36.5 % Low 40-54 [facility] Comment on above: Performed By: #### L 503.7505, L100.0100, L500.2500 ####[facility] [address] [place], [address] Hemoglobin (Bld) [Mass/Vol] 11.8 g/dL Low 13.0-16.5 [facility] Comment on above: Performed By: #### L 503.7505, L100.0100, L500.2500 ####[facility] [address] [place], [address] IG% 0.500 Normal 0.0-0.9 [facility] Comment on above: Result Comment: IG% - Immature Granulocytes (promyelocytes, myelocytes andmetamyelocytes) > 1% indicates that a LEFT SHIFT is Present. Performed By: #### L 503.7505, L100.0100, L500.2500 ####[facility] [address] [place], [address] Lymphocytes/100 WBC (Bld) 16.1 % Low 19-41 [facility] Comment on above: Performed By: #### L 503.7505, L100.0100, L500.2500 ####[facility] [address] [place], [address] MCH (RBC) [Entitic mass] 29.6 pg Normal 27.0-32.0 [facility] Comment on above: Performed By: #### L 503.7505, L100.0100, L500.2500 ####[facility] [address] [place], [address] MCHC (RBC) [Mass/Vol] 32.3 g/dL Normal 32-36 [facility] Comment on above: Performed By: #### L 503.7505, L100.0100, L500.2500 ####[facility] [address] [place], [address] MCV (RBC) [Entitic vol] 91.7 fL Normal 80-94 [facility] Comment on above: Performed By: #### L 503.7505, L100.0100, L500.2500 ####[facility] [address] [place], [address] Monocytes/100 WBC (Bld) 9.0 % Normal 0-10 [facility] Comment on above: Performed By: #### L 503.7505, L100.0100, L500.2500 ####[facility] [address] [place], [address] Neutrophils/100 WBC (Bld) 72.5 % High 47-70 [facility] Comment on above: Performed By: #### L 503.7505, L100.0100, L500.2500 ####[facility] [address] [place], [address] Nucleated RBC (Bld) [#/Vol] 0 10*3/uL Normal 0-5 [facility] Comment on above: Performed By: #### L 503.7505, L100.0100, L500.2500 ####[facility] [address] [place], [address] Platelet mean volume (Bld) [Entitic vol] 13.0 fL High 6.2-12.0 [facility] Comment on above: Performed By: #### L 503.7505, L100.0100, L500.2500 ####[facility] [address] [place], [address] Platelets (Bld) [#/Vol] 148 10*3/uL Low 150-450 [facility] Comment on above: Performed By: #### L 503.7505, L100.0100, L500.2500 ####[facility] [address] [place], [address] RBC (Bld) [#/Vol] 3.98 10*6/uL Low 4.6-6.2 [facility] Comment on above: Performed By: #### L 503.7505, L100.0100, L500.2500 ####[facility] [address] [place], [address] RDW SD 47.0 fl High 35.1-43.9 [facility] Comment on above: Performed By: #### L 503.7505, L100.0100, L500.2500 ####[facility] [address] [place], [address] WBC (Bld) [#/Vol] 8.5 10*3/uL Normal 4.4-11.0 [facility] Comment on above: Performed By: #### L 503.7505, L100.0100, L500.2500 ####[facility] [address] [place], [address] Carbon dioxide, total [Moles /volume] in Central venous bloodOrdered By: Gustabo Pérez on 11-22-2024 CO2 [Moles/Vol] 21.6 mmol/L 21.0-32.0 [facility] Cardiology Visit Reporton Cardiology Visit Report [facility] Chest PA and Lateralon 11-22 Chest PA and Lateral Normal [facility] Chloride assayOrdered By: Lydia Pérez on 11-22-2024 Chloride [Moles/Vol] 102 mmol/L 98-108 [facility] Eosinophil percentageOrdered By: Gustabo Pérez on 11-22-2024 Eosinophils/100 WBC (Bld) 1.5 % 0-5 [facility] Erythrocyte distribution wid th ratioOrdered By: Gustabo Pérez on 11-22-2024 Erythrocyte distribution width (RBC) [Ratio] 13.8 % 11.6-14.6 [facility] Erythrocyte distribution wid th standard deviationOrdered By: Gustabo Pérez on 11-22-2024 Erythrocyte distribution width (RBC) [Ratio] 47.0 fl High 35.1-43.9 [facility] Glomerular filtration rate ( GFR) estimation/1.73 sq m using serum, plasma, or whole bOrdered By: Gustabo Pérez on 11-22-2024 GFR/1.73 sq M.predicted among non-blacks MDRD (S/P/Bld) [Vol rate/Area] 25 mL/min/{1.73_m2} Low >60 [facility] Hematocrit Auto (Bld) [Volum e fraction]Ordered By: Gustabo Pérez on 11-22-2024 Hematocrit (Bld) [Volume fraction] 36.5 % Low 40-54 [facility] Hemoglobin measurementOrdere d By: Gustabo Pérez on 11-22-2024 Hemoglobin (Bld) [Mass/Vol] 11.8 g/dL Low 13.0-16.5 [facility] Immature granulocytes/100 WB C Auto (Bld)Ordered By: Gustabo Pérez on 11-22-2024 Immature granulocytes/100 WBC (Bld) 0.500 % 0.0-0.9 [facility] L503.7505on 11-22-2024 Natriuretic peptide B (Bld) [Mass/Vol] 188 pg/mL Normal <=1800 [facility] Comment on above: Result Comment: Hear t Failure Unlikely: < 300 pg/mLHeart Failure Likely< 50 Years: > 450 pg/mL50-75 Years: > 900 pg/mL>75 Years: > 1800 pg/mL Performed By: #### L 503.7505, L100.0100, L500.2500 ####[facility] [address] [place], [address] MCV (mean corpuscular volume ) determinationOrdered By: Gustabo Pérez on 11-22-2024 MCV (RBC) [Entitic vol] 91.7 fL 80-94 [facility] Mean corpuscular hemoglobin (MCH) determinationOrdered By: Gustabo Pérez on 11-22-2024 MCH (RBC) [Entitic mass] 29.6 pg 27.0-32.0 [facility] Monocyte percentageOrdered B y: Gustabo Péerz on 11-22-2024 Monocytes/100 WBC (Bld) 9.0 % 0-10 [facility] Natriuretic peptide.B prohor efrem N-Terminal [Mass/volume] in Serum or PlasmaOrdered By: Gustabo Pérez on 11-22-2024 Natriuretic peptide.B prohormone N-Terminal [Mass/Vol] 188 pg/mL <1800 [facility] Neutrophil percentageOrdered By: Gustabo Pérez on 11-22-2024 Neutrophils/100 WBC (Bld) 72.5 % High 47-70 [facility] Platelet countOrdered By: Lydia Pérez on 11-22-2024 Platelets (Bld) [#/Vol] 148 10*3/uL Low 150-450 [facility] Potassium measurement (mass/ volume)Ordered By: Gustabo Pérez on 11-22-2024 Potassium (Unsp spec) [Mass/Vol] 4.8 mmol/L 3.3-5.1 [facility] RBC Auto (Bld) [#/Vol]Ordere d By: Gustabo Pérez on 11-22-2024 RBC (Bld) [#/Vol] 3.98 10*6/uL Low 4.6-6.2 [facility] Serum creatinine measurement (mass/volume)Ordered By: Gustabo Pérez on 11-22-2024 Creatinine [Mass/Vol] 2.51 mg/dL High 0.70-1.20 [facility] Serum glucose measurement (m ass/volume)Ordered By: Gustabo Pérez on 11-22-2024 Glucose [Mass/Vol] 262 mg/dL High 70-99 [facility] Serum or plasma calcium francine urement (mass/volume)Ordered By: Gustabo Pérez on 11-22-2024 Calcium [Mass/Vol] 9.1 mg/dL 7.6-11.0 [facility] Serum or plasma urea nitroge n measurement (mass/volume)Ordered By: Gustabo Pérez on 11-22-2024 Urea nitrogen [Mass/Vol] 39 mg/dL High 4-19 [facility] Sodium levelOrdered By: Gustabo Pérez on 11-22-2024 Sodium [Moles/Vol] 139 mmol/L 133-145 [facility] White blood cell (WBC) count Ordered By: Gustabo Pérez on 11-22-2024 WBC (Bld) [#/Vol] 8.5 10*3/uL 4.4-11.0 [facility] Shoulder min 2 Viewson 11-20 Shoulder min 2 Views Normal [facility] Cardiovascular stress test r eportOrdered By: Jose Hay on 11-13-2024 Study report [facility] [address] [place] [address] MR#: [id number] Acct: [id number] Name: ERIBERTO RICO Rep #: [id number] : 1945 79 From: Jose Hay MD Primary Care: Dr. Marycarmen Rodriguez, Statu s: [facility] Referring Dr: Gustabo Pérez NP AUTOMATION QA ANALYST-C Sex: M C Stress Test Report Date: [...] of 62%. This note was generated with Changelightation software. It may contain incorrectwords, spelling, and punctuation that were not noted in checking the note beforesigning. 11/13/24 1539 Date _ Jose Hay MD CC: AUTOMATION QA ANALYST-C Gustabo Pérez; Dr. Marycarmen Rodriguez, DO ~ Date Dictated: 11/13/241536 Date Transcribed: 11/13/241536 [employer] Driver: HARSH Signed [facility] Work Phone: Stress Reporton 11-13-2024 Stress Report Normal [facility] Echo Complete W/ Contraston 11-10-2024 Echo Complete W/ Contrast Normal [facility] Echocardiogram study reportO rdered By: Lance Rodriguez on 11-10-2024 Study report [facility] [address] [place] [address] Echo Complete W/ Contrast 11/10/24 0920 MR#: [id number] Acct: [id number] Name: ERIBERTO RICO Rep #:[id number] : 1945 79 From: Lance Hooker Attending Dr: YRN Herr Sta tus: [facility] Ordering Dr: Maren Olivas Driss e: 11/10/24 Location: [facility] Sex: M C Admitted: Reason For Study [...] 1213 Date _ Lance Rodriguez MD CC: AUTOMATION QA ANALYSTAgnieszka Pérez; Dr. Marycarmen Rodriguez DO; Maren Olivas NP ~ Date Dictated: 11/10/24919 Date Transcribed: 11/10/241212 [employer] Driver: Signed [facility] Absolute lymphocyte countOrd ered By: Marycarmen Rodriguez on 11-09-2024 Lymphocytes Auto (Unsp spec) [#/Vol] 1.23 10*3/uL 0.83-4.51 [facility] Absolute neutrophil countOrd ered By: Marycarmen Rodriguez on 11-09-2024 Neutrophils (Bld) [#/Vol] 4.1 10*3/uL 2.0-7.7 [facility] Anion gap in Serum or Plasma Ordered By: Marycarmen Rodriguez on 11-09-2024 Anion gap [Moles/Vol] 14 mmol/L 5-15 [facility] Automated lymphocyte count a s percentage of total leukocytesOrdered By: Marycarmen Rodriguez on 11-09-2024 Lymphocytes/100 WBC Auto (Unsp spec) 19.9 % [facility] BUN/creatinine ratioOrdered By: Marycarmen Rodriguez on 11-09-2024 Urea nitrogen/Creatinine [Mass ratio] 19.7 mg/mg 02-19 [facility] Basic Metabolic Profile (BMP )on 11-09-2024 BUN/CRE 19.7 RATIO Normal 02-19 [facility] Comment on above: Performed By: #### L 503.4934, L500.2500, L100.0100 ####[facility] [address] [place], [address] Calcium [Mass/Vol] 9.3 mg/dL Normal 7.6-11.0 [facility] Comment on above: Performed By: #### L 503.7505, L500.2500, L100.0100 ####[facility] [address] [place], [address] Chloride [Moles/Vol] 102 mmol/L Normal 98-108 [facility] Comment on above: Performed By: #### L 503.7505, L500.2500, L100.0100 ####[facility] [address] [place], [address] CO2 [Moles/Vol] 22.5 mmol/L Normal 21.0-32.0 [facility] Comment on above: Performed By: #### L 503.7505, L500.2500, L100.0100 ####[facility] [address] [place], [address] Creatinine [Mass/Vol] 2.49 mg/dL High 0.70-1.20 [facility] Comment on above: Performed By: #### L 503.7505, L500.2500, L100.0100 ####[facility] [address] [place], [address] GAP 14 Normal 5-15 [facility] Comment on above: Performed By: #### L 503.7505, L500.2500, L100.0100 ####[facility] [address] [place], [address] GFR/1.73 sq M.predicted among non-blacks MDRD (S/P/Bld) [Vol rate/Area] 26 mL/min/{1.73_m2} Low >60 [facility] Comment on above: Result Comment: mL/m in/1.73m2 CKD-EPI Creatinine Equation (2020) Performed By: #### L 503.7505, L500.2500, L100.0100 ####[facility] [address] [place], [address] Glucose [Mass/Vol] 169 mg/dL High 70-99 [facility] Comment on above: Performed By: #### L 503.7505, L500.2500, L100.0100 ####[facility] [address] [place], [address] Potassium [Moles/Vol] 4.6 mmol/L Normal 3.3-5.1 [facility] Comment on above: Performed By: #### L 503.7505, L500.2500, L100.0100 ####[facility] [address] [place], [address] Sodium [Moles/Vol] 139 mmol/L Normal 133-145 [facility] Comment on above: Performed By: #### L 503.7505, L500.2500, L100.0100 ####[facility] [address] [place], [address] Urea nitrogen [Mass/Vol] 49 mg/dL High 4-19 [facility] Comment on above: Performed By: #### L 503.7505, L500.2500, L100.0100 ####[facility] [address] [place], [address] Basophil percentageOrdered B y: Marycarmen Rodriguez on 11-09-2024 Basophils/100 WBC (Bld) 0.3 % 0- [facility] CBC W/Diff, Automatedon 10-31-2024 Absolute Lymph 1.23 X10 3/uL Normal 0.83-4.51 [facility] Comment on above: Performed By: #### L 503.7505, L500.2500, L100.0100 ####[facility] [address] [place], [address] Absolute Neut 4.1 X10 3/uL Normal 2.0-7.7 [facility] Comment on above: Performed By: #### L 503.7505, L500.2500, L100.0100 ####[facility] [address] [place], [address] Basophils/100 WBC (Bld) 0.3 % Normal 0-1 [facility] Comment on above: Performed By: #### L 503.7505, L500.2500, L100.0100 ####[facility] [address] [place], [address] Eosinophils/100 WBC (Bld) 2.4 % Normal 0-5 [facility] Comment on above: Performed By: #### L 503.7505, L500.2500, L100.0100 ####[facility] [address] [place], [address] Erythrocyte distribution width (RBC) [Ratio] 14.1 % Normal 11.6-14.6 [facility] Comment on above: Performed By: #### L 503.7505, L500.2500, L100.0100 ####[facility] [address] [place], [address] Hematocrit (Bld) [Volume fraction] 38.2 % Low 40-54 [facility] Comment on above: Performed By: #### L 503.7505, L500.2500, L100.0100 ####[facility] [address] [place], [address] Hemoglobin (Bld) [Mass/Vol] 12.2 g/dL Low 13.0-16.5 [facility] Comment on above: Performed By: #### L 503.7505, L500.2500, L100.0100 ####[facility] [address] [place], [address] IG% 0.500 Normal 0.0-0.9 [facility] Comment on above: Result Comment: IG% - Immature Granulocytes (promyelocytes, myelocytes andmetamyelocytes) > 1% indicates that a LEFT SHIFT is Present. Performed By: #### L 503.7505, L500.2500, L100.0100 ####[facility] [address] [place], [address] Lymphocytes/100 WBC (Bld) 19.9 % Normal 19-41 [facility] Comment on above: Performed By: #### L 503.7505, L500.2500, L100.0100 ####[facility] [address] [place], [address] MCH (RBC) [Entitic mass] 29.6 pg Normal 27.0-32.0 [facility] Comment on above: Performed By: #### L 503.7505, L500.2500, L100.0100 ####[facility] [address] [place], [address] MCHC (RBC) [Mass/Vol] 31.9 g/dL Low 32-36 [facility] Comment on above: Performed By: #### L 503.7505, L500.2500, L100.0100 ####[facility] [address] [place], [address] MCV (RBC) [Entitic vol] 92.7 fL Normal 80-94 [facility] Comment on above: Performed By: #### L 503.7505, L500.2500, L100.0100 ####[facility] [address] [place], [address] Monocytes/100 WBC (Bld) 10.4 % High 0-10 [facility] Comment on above: Performed By: #### L 503.7505, L500.2500, L100.0100 ####[facility] [address] [place], [address] Neutrophils/100 WBC (Bld) 66.5 % Normal 47-70 [facility] Comment on above: Performed By: #### L 503.7505, L500.2500, L100.0100 ####[facility] [address] [place], [address] Nucleated RBC (Bld) [#/Vol] 0 10*3/uL Normal 0-5 [facility] Comment on above: Performed By: #### L 503.7505, L500.2500, L100.0100 ####[facility] [address] [place], [address] Platelet mean volume (Bld) [Entitic vol] 12.7 fL High 6.2-12.0 [facility] Comment on above: Performed By: #### L 503.7505, L500.2500, L100.0100 ####[facility] [address] [place], [address] Platelets (Bld) [#/Vol] 120 10*3/uL Low 150-450 [facility] Comment on above: Performed By: #### L 503.7505, L500.2500, L100.0100 ####[facility] [address] [place], [address] RBC (Bld) [#/Vol] 4.12 10*6/uL Low 4.6-6.2 [facility] Comment on above: Performed By: #### L 503.7505, L500.2500, L100.0100 ####[facility] [address] [place], [address] RDW SD 47.8 fl High 35.1-43.9 [facility] Comment on above: Performed By: #### L 503.7505, L500.2500, L100.0100 ####[facility] [address] [place], [address] WBC (Bld) [#/Vol] 6.2 10*3/uL Normal 4.4-11.0 [facility] Comment on above: Performed By: #### L 503.7505, L500.2500, L100.0100 ####[facility] [address] [place], [address] Carbon dioxide, total [Moles /volume] in Central venous bloodOrdered By: Marycarmen Rodriguez on 11-09-2024 CO2 [Moles/Vol] 22.5 mmol/L 21.0-32.0 [facility] Chloride assayOrdered By: Ap Rodriguez on 11-09-2024 Chloride [Moles/Vol] 102 mmol/L 98-108 [facility] Eosinophil percentageOrdered By: Marycarmen Rodriguez on 11-09-2024 Eosinophils/100 WBC (Bld) 2.4 % 0-5 [facility] Erythrocyte distribution wid th ratioOrdered By: Marycarmen Rodriguez on 11-09-2024 Erythrocyte distribution width (RBC) [Ratio] 14.1 % 11.6-14.6 [facility] Erythrocyte distribution wid th standard deviationOrdered By: Marycarmen Rodriguez on 11-09-2024 Erythrocyte distribution width (RBC) [Ratio] 47.8 fl High 35.1-43.9 [facility] Glomerular filtration rate ( GFR) estimation/1.73 sq m using serum, plasma, or whole bOrdered By: Marycarmen Rodriguez on 11-09-2024 GFR/1.73 sq M.predicted among non-blacks MDRD (S/P/Bld) [Vol rate/Area] 26 mL/min/{1.73_m2} Low >60 [facility] Comment on above: mL/min/1.73m2 CKD-EP I Creatinine Equation (2020) Hematocrit Auto (Bld) [Volum e fraction]Ordered By: Marycarmen Rodriguez on 11-09-2024 Hematocrit (Bld) [Volume fraction] 38.2 % Low 40-54 [facility] Hemoglobin measurementOrdere d By: Marycarmen Rodriguez on 11-09-2024 Hemoglobin (Bld) [Mass/Vol] 12.2 g/dL Low 13.0-16.5 [facility] Immature granulocytes/100 WB C Auto (Bld)Ordered By: Marycarmen Rodriguez on 11-09-2024 Immature granulocytes/100 WBC (Bld) 0.500 % 0.0-0.9 [facility] Comment on above: IG% - Immature Granu locytes (promyelocytes, myelocytes and metamyelocytes) > 1% indicates that a LEFT SHIFT is Present. L503.7505on 11-09-2024 Natriuretic peptide B (Bld) [Mass/Vol] 91 pg/mL Normal <=1800 [facility] Comment on above: Result Comment: Hear t Failure Unlikely: < 300 pg/mLHeart Failure Likely< 50 Years: > 450 pg/mL50-75 Years: > 900 pg/mL>75 Years: > 1800 pg/mL Performed By: #### L 503.7505, L500.2500, L100.0100 ####[facility] [address] [place], [address] MCV (mean corpuscular volume ) determinationOrdered By: Marycarmen Rodriguez on 11-09-2024 MCV (RBC) [Entitic vol] 92.7 fL 80-94 [facility] Mean corpuscular hemoglobin (MCH) determinationOrdered By: Marycarmen Rodriguez on 11-09-2024 MCH (RBC) [Entitic mass] 29.6 pg 27.0-32.0 [facility] Mean corpuscular hemoglobin concentration (MCHC) determinationOrdered By: Marycarmen Rodriguez on 11-09-2024 MCHC (RBC) [Mass/Vol] 31.9 g/dL Low 32-36 [facility] Mean platelet volume determi nationOrdered By: Marycarmen Rodriguez on 11-09-2024 Platelet mean volume (Bld) [Entitic vol] 12.7 fL High 6.2-12.0 [facility] Monocyte percentageOrdered B y: Marycarmen Rodriguez on 11-09-2024 Monocytes/100 WBC (Bld) 10.4 % High 0-10 [facility] Natriuretic peptide.B prohor efrem N-Terminal [Mass/volume] in Serum or PlasmaOrdered By: Marycarmen Rodriguez on 11-09-2024 Natriuretic peptide.B prohormone N-Terminal [Mass/Vol] 91 pg/mL <1800 [facility] Comment on above: Heart Failure Unlike ly: < 300 pg/mLHeart Failure Likely< 50 Years: > 450 pg/mL50-75 Years: > 900 pg/mL>75 Years: > 1800 pg/mL Neutrophil percentageOrdered By: Marycarmen Rodriguez on 11-09-2024 Neutrophils/100 WBC (Bld) 66.5 % 47-70 [facility] Nucleated red blood cell per centageOrdered By: Marycarmen Rodriguez on 11-09-2024 Nucleated RBC/100 WBC (Bld) [Ratio] 0 % 0-5 [facility] Platelet countOrdered By: Ap Rodriguez on 11-09-2024 Platelets (Bld) [#/Vol] 120 10*3/uL Low 150-450 [facility] Potassium measurement (mass/ volume)Ordered By: Marycarmen Rodriguez on 11-09-2024 Potassium (Unsp spec) [Mass/Vol] 4.6 mmol/L 3.3-5.1 [facility] RBC Auto (Bld) [#/Vol]Ordere d By: Marycarmen Rodriguez on 11-09-2024 RBC (Bld) [#/Vol] 4.12 10*6/uL Low 4.6-6.2 [facility] Serum creatinine measurement (mass/volume)Ordered By: Marycarmen Rodriguez on 11-09-2024 Creatinine [Mass/Vol] 2.49 mg/dL High 0.70-1.20 [facility] Serum glucose measurement (m ass/volume)Ordered By: Marycarmen Rodriguez on 11-09-2024 Glucose [Mass/Vol] 169 mg/dL High 70-99 [facility] Serum or plasma calcium francine urement (mass/volume)Ordered By: Marycarmen Rodriguez on 11-09-2024 Calcium [Mass/Vol] 9.3 mg/dL 7.6-11.0 [facility] Serum or plasma urea nitroge n measurement (mass/volume)Ordered By: Marycarmen Rodriguez on 11-09-2024 Urea nitrogen [Mass/Vol] 49 mg/dL High 4-19 [facility] Sodium levelOrdered By: Marycarmen Rodriguez on 11-09-2024 Sodium [Moles/Vol] 139 mmol/L 133-145 [facility] White blood cell (WBC) count Ordered By: Marycarmen Rodriguez on 11-09-2024 WBC (Bld) [#/Vol] 6.2 10*3/uL 4.4-11.0 [facility] Pul[facility] Report Normal Wo lucien [facility] Cardiology Visit Reporton Cardiology Visit Report Normal [facility] [id number] 10-23-2024 [facility] Misc. COMMENT Normal . [facility] Comment on above: Order Comment: [id number] 0MED TOX Result Comment: Test Ordered: [id number] A31-Rcgrcd+VL3Rajfbyazzinf Screen, Urine Negative ng/mL UI Reference Range: Bxdbaq=190Qakmmspinkq test includes Amphetamine and Methamphetamine.Barbiturates Negative ng/mL UI Reference Range: Xwizkj=533Xvqceybzdookfgo Negative ng/mL UI Reference Range: Ejsxnh=114Bdygyob (Metab.), Urine Negative ng/mL UI Reference Range: Kuunrq=737Cphudup Note: ng/mL UI See Final Results Reference Range: Yogbtr=925Oaljyf test includes Codeine, Morphine, Hydromorphone, Hydrocodone.Opiates Positive [A ] UI Reference Range: Gkmrak=380Laikiu test includes Codeine, Morphine, Hydromorphone, Hydrocodone.Codeine Negative UI Reference Range: Wcxxzq=587Lfbvvvpx Negative UI Reference Range: Daboxr=974Snraqdtsfoedq Negative UI Reference Range: Zbhccc=495Gbgumjaarjp Positive [A ] UI Reference Range: .Hydrocodone Conf, MS, UR 349 ng/mL UI Reference Range: Xkyktg=6008-Dhknfowufezqtz, Urine Negative ng/mL UI Reference Range: Cutoff=10Oxycodone/Oxymorphone, Urine Negative ng/mL UI Reference Range: Aoyudt=676Jyji includes Oxycodone and OxymorphonePCP, Urine Negative ng/mL UI Reference Range: Cutoff=25Methadone Screen, Urine Negative ng/mL UI Reference Range: Mgsnap=291Obbvrxsyoffd, Urine Negative ng/mL UI Reference Range: Bbbncg=592Obbphyfb, Urine Negative ng/mL UI Reference Range: Cutoff=2.0Test includes Fentanyl and NorfentanylThis test was developed and its performance characteristicsdetermined by [facility]. It has not been cleared orapproved by the Food and Drug Administration.Tramadol Negative ng/mL UI Reference Range: Cppzfp=881Aelgvyutohqly, Urine Negative ng/mL UI Reference Range: Cutoff=10Creatinine, Urine 36.9 mg/dL UI Reference Range: 20.0-300.0pH, Urine 6.1 UI Reference Range: 4.5-8.9Performed at: UI - [facility] [id number] [facility], [place], [place] [id number] Director: Erik Wallis PhD, Phone: [phone] at: - [facility] [address] [id number] Director: Bharath Hawthorne PhD, Phone: [phone] Performed By: #### L 5508.5967, L505.5000 ####[facility] [address] [place], [place], [address] Absolute lymphocyte countOrd ered By: Gustabo Pérez on 10-18-2024 Lymphocytes Auto (Unsp spec) [#/Vol] 1.15 10*3/uL 0.83-4.51 [facility] Absolute neutrophil countOrd ered By: Gustabo Pérez on 10-18-2024 Neutrophils (Bld) [#/Vol] 4.6 10*3/uL 2.0-7.7 [facility] Amphetamine detection with 1 000 ng/mL as cutoffOrdered By: Brooks Carpenter on 10-18-2024 Amphetamines Screen method >1000 ng/mL Ql (U) Negative < 200 ng/mL [facility] Anion gap in Serum or Plasma Ordered By: Gustabo Pérez on 10-18-2024 Anion gap [Moles/Vol] 12 mmol/L 09-14 [facility] Automated lymphocyte count a s percentage of total leukocytesOrdered By: Gustabo Pérez on 10-18-2024 Lymphocytes/100 WBC Auto (Unsp spec) 17.4 % Low [facility] BUN/creatinine ratioOrdered By: Gustabo Pérez on 10-18-2024 Urea nitrogen/Creatinine [Mass ratio] 16.4 mg/mg 02-19 [facility] Basic Metabolic Profile (BMP )on 10-18-2024 BUN/CRE 16.4 RATIO Normal 02-19 [facility] Comment on above: Performed By: #### L 500.2500, L100.0100, L503.7505 ####[facility] [address] [place], [address] Calcium [Mass/Vol] 9.0 mg/dL Normal 7.6-11.0 [facility] Comment on above: Performed By: #### L 500.2500, L100.0100, L503.7505 ####[facility] [address] [place], [address] Chloride [Moles/Vol] 103 mmol/L Normal 98-108 [facility] Comment on above: Performed By: #### L 500.2500, L100.0100, L503.7505 ####[facility] [address] [place], [address] CO2 [Moles/Vol] 23.9 mmol/L Normal 21.0-32.0 [facility] Comment on above: Performed By: #### L 500.2500, L100.0100, L503.7505 ####[facility] [address] [place], [address] Creatinine [Mass/Vol] 2.00 mg/dL High 0.70-1.20 [facility] Comment on above: Performed By: #### L 500.2500, L100.0100, L503.7505 ####[facility] [address] [place], [address] GAP 12 Normal 5-15 [facility] Comment on above: Performed By: #### L 500.2500, L100.0100, L503.7505 ####[facility] [address] [place], [address] GFR/1.73 sq M.predicted among non-blacks MDRD (S/P/Bld) [Vol rate/Area] 33 mL/min/{1.73_m2} Low >60 [facility] Comment on above: Result Comment: mL/m in/1.73m2 CKD-EPI Creatinine Equation (2020) Performed By: #### L 500.2500, L100.0100, L503.7505 ####[facility] [address] [place], [address] Glucose [Mass/Vol] 125 mg/dL High 70-99 [facility] Comment on above: Performed By: #### L 500.2500, L100.0100, L503.7505 ####[facility] [address] [place], [address] Potassium [Moles/Vol] 4.8 mmol/L Normal 3.3-5.1 [facility] Comment on above: Performed By: #### L 500.2500, L100.0100, L503.7505 ####[facility] [address] [place], [address] Sodium [Moles/Vol] 139 mmol/L Normal 133-145 [facility] Comment on above: Performed By: #### L 500.2500, L100.0100, L503.7505 ####[facility] [address] [place], [address] Urea nitrogen [Mass/Vol] 33 mg/dL High 4-19 [facility] Comment on above: Performed By: #### L 500.2500, L100.0100, L503.7505 ####[facility] [address] [place], [address] Basophil percentageOrdered B y: Gustabo Pérez on 10-18-2024 Basophils/100 WBC (Bld) 0.2 % 0-1 [facility] CBC W/Diff, Automatedon 10-01 Absolute Lymph 1.15 X10 3/uL Normal 0.83-4.51 [facility] Comment on above: Performed By: #### L 500.2500, L100.0100, L503.7505 ####[facility] [address] [place], [address] Absolute Neut 4.6 X10 3/uL Normal 2.0-7.7 [facility] Comment on above: Performed By: #### L 500.2500, L100.0100, L503.7505 ####[facility] [address] [place], [address] Basophils/100 WBC (Bld) 0.2 % Normal 0-1 [facility] Comment on above: Performed By: #### L 500.2500, L100.0100, L503.7505 ####[facility] [address] [place], [address] Eosinophils/100 WBC (Bld) 2.0 % Normal 0-5 [facility] Comment on above: Performed By: #### L 500.2500, L100.0100, L503.7505 ####[facility] [address] [place], [address] Erythrocyte distribution width (RBC) [Ratio] 14.3 % Normal 11.6-14.6 [facility] Comment on above: Performed By: #### L 500.2500, L100.0100, L503.7505 ####[facility] [address] [place], [address] Hematocrit (Bld) [Volume fraction] 36.4 % Low 40-54 [facility] Comment on above: Performed By: #### L 500.2500, L100.0100, L503.7505 ####[facility] [address] [place], [address] Hemoglobin (Bld) [Mass/Vol] 11.5 g/dL Low 13.0-16.5 [facility] Comment on above: Performed By: #### L 500.2500, L100.0100, L503.7505 ####[facility] [address] [place], [address] IG% 0.600 Normal 0.0-0.9 [facility] Comment on above: Result Comment: IG% - Immature Granulocytes (promyelocytes, myelocytes andmetamyelocytes) > 1% indicates that a LEFT SHIFT is Present. Performed By: #### L 500.2500, L100.0100, L503.7505 ####[facility] [address] [place], [address] Lymphocytes/100 WBC (Bld) 17.4 % Low 19-41 [facility] Comment on above: Performed By: #### L 500.2500, L100.0100, L503.7505 ####[facility] [address] [place], [address] MCH (RBC) [Entitic mass] 29.4 pg Normal 27.0-32.0 [facility] Comment on above: Performed By: #### L 500.2500, L100.0100, L503.7505 ####[facility] [address] [place], [address] MCHC (RBC) [Mass/Vol] 31.6 g/dL Low 32-36 [facility] Comment on above: Performed By: #### L 500.2500, L100.0100, L503.7505 ####[facility] [address] [place], [address] MCV (RBC) [Entitic vol] 93.1 fL Normal 80-94 [facility] Comment on above: Performed By: #### L 500.2500, L100.0100, L503.7505 ####[facility] [address] [place], [address] Monocytes/100 WBC (Bld) 10.4 % High 0-10 [facility] Comment on above: Performed By: #### L 500.2500, L100.0100, L503.7505 ####[facility] [address] [place], [address] Neutrophils/100 WBC (Bld) 69.4 % Normal 47-70 [facility] Comment on above: Performed By: #### L 500.2500, L100.0100, L503.7505 ####[facility] [address] [place], [address] Nucleated RBC (Bld) [#/Vol] 0 10*3/uL Normal 0-5 [facility] Comment on above: Performed By: #### L 500.2500, L100.0100, L503.7505 ####[facility] [address] [place], [address] Platelet mean volume (Bld) [Entitic vol] 12.9 fL High 6.2-12.0 [facility] Comment on above: Performed By: #### L 500.2500, L100.0100, L503.7505 ####[facility] [address] [place], [address] Platelets (Bld) [#/Vol] 152 10*3/uL Normal 150-450 [facility] Comment on above: Performed By: #### L 500.2500, L100.0100, L503.7505 ####[facility] [address] [place], [address] RBC (Bld) [#/Vol] 3.91 10*6/uL Low 4.6-6.2 [facility] Comment on above: Performed By: #### L 500.2500, L100.0100, L503.7505 ####[facility] [address] [place], [address] RDW SD 48.5 fl High 35.1-43.9 [facility] Comment on above: Performed By: #### L 500.2500, L100.0100, L503.7505 ####[facility] [address] [place], [address] WBC (Bld) [#/Vol] 6.6 10*3/uL Normal 4.4-11.0 [facility] Comment on above: Performed By: #### L 500.2500, L100.0100, L503.7505 ####[facility] [address] [place], [address] Carbon dioxide, total [Moles /volume] in Central venous bloodOrdered By: Gustabo Pérez on 10-18-2024 CO2 [Moles/Vol] 23.9 mmol/L 21.0-32.0 [facility] Chloride assayOrdered By: Lydia Pérez on 10-18-2024 Chloride [Moles/Vol] 103 mmol/L 98-108 [facility] Eosinophil percentageOrdered By: Gustabo Pérez on 10-18-2024 Eosinophils/100 WBC (Bld) 2.0 % 0-5 [facility] Erythrocyte distribution wid th ratioOrdered By: Gustabo Pérez on 10-18-2024 Erythrocyte distribution width (RBC) [Ratio] 14.3 % 11.6-14.6 [facility] Erythrocyte distribution wid th standard deviationOrdered By: Gustabo Pérez on 10-18-2024 Erythrocyte distribution width (RBC) [Ratio] 48.5 fl High 35.1-43.9 [facility] Glomerular filtration rate ( GFR) estimation/1.73 sq m using serum, plasma, or whole bOrdered By: Gustabo Pérez on 10-18-2024 GFR/1.73 sq M.predicted among non-blacks MDRD (S/P/Bld) [Vol rate/Area] 33 mL/min/{1.73_m2} Low >60 [facility] Comment on above: mL/min/1.73m2 CKD-EP I Creatinine Equation (2020) Hematocrit Auto (Bld) [Volum e fraction]Ordered By: Gustabo Pérez on 10-18-2024 Hematocrit (Bld) [Volume fraction] 36.4 % Low 40-54 [facility] Hemoglobin measurementOrdere d By: Gustabo Pérez on 10-18-2024 Hemoglobin (Bld) [Mass/Vol] 11.5 g/dL Low 13.0-16.5 [facility] Immature granulocytes/100 WB C Auto (Bld)Ordered By: Gustabo Pérez on 10-18-2024 Immature granulocytes/100 WBC (Bld) 0.600 % 0.0-0.9 [facility] Comment on above: IG% - Immature Granu locytes (promyelocytes, myelocytes and metamyelocytes) > 1% indicates that a LEFT SHIFT is Present. L503.7505on 10-18-2024 Natriuretic peptide B (Bld) [Mass/Vol] 200 pg/mL Normal <=1800 [facility] Comment on above: Result Comment: Hear t Failure Unlikely: < 300 pg/mLHeart Failure Likely< 50 Years: > 450 pg/mL50-75 Years: > 900 pg/mL>75 Years: > 1800 pg/mL Performed By: #### L 500.2500, L100.0100, L503.7505 ####[facility] [address] [place], [address] MCV (mean corpuscular volume ) determinationOrdered By: Gustabo Pérez on 10-18-2024 MCV (RBC) [Entitic vol] 93.1 fL 80-94 [facility] Mean corpuscular hemoglobin (MCH) determinationOrdered By: Gustabo Pérez on 10-18-2024 MCH (RBC) [Entitic mass] 29.4 pg 27.0-32.0 [facility] Mean corpuscular hemoglobin concentration (MCHC) determinationOrdered By: Gustabo Pérez on 10-18-2024 MCHC (RBC) [Mass/Vol] 31.6 g/dL Low 32-36 [facility] Mean platelet volume determi nationOrdered By: Gustabo Pérez on 10-18-2024 Platelet mean volume (Bld) [Entitic vol] 12.9 fL High 6.2-12.0 [facility] Monocyte percentageOrdered B y: Gustabo Pérez on 10-18-2024 Monocytes/100 WBC (Bld) 10.4 % High 0-10 [facility] Natriuretic peptide.B prohor efrem N-Terminal [Mass/volume] in Serum or PlasmaOrdered By: Gustabo Pérez on 10-18-2024 Natriuretic peptide.B prohormone N-Terminal [Mass/Vol] 200 pg/mL <1800 [facility] Comment on above: Heart Failure Unlike ly: < 300 pg/mLHeart Failure Likely< 50 Years: > 450 pg/mL50-75 Years: > 900 pg/mL>75 Years: > 1800 pg/mL Neutrophil percentageOrdered By: Gustabo Pérez on 10-18-2024 Neutrophils/100 WBC (Bld) 69.4 % 47-70 [facility] No Panel InformationOrdered By: Brooks Carpenter on 10-18-2024 Urine Buprenorphine Qualitative Negative < 200 ng/mL [facility] Urine Oxycodone Screen Negative < 100 ng/mL [facility] Negative < 200 ng/mL [facility] Nucleated red blood cell per centageOrdered By: Gustabo Pérez on 10-18-2024 Nucleated RBC/100 WBC (Bld) [Ratio] 0 % 0-5 [facility] Platelet countOrdered By: Lydia Pérez on 10-18-2024 Platelets (Bld) [#/Vol] 152 10*3/uL 150-450 [facility] Potassium measurement (mass/ volume)Ordered By: Gustabo Pérez on 10-18-2024 Potassium (Unsp spec) [Mass/Vol] 4.8 mmol/L 3.3-5.1 [facility] Quantitative urine opiates m easurementOrdered By: Brooks Carpenter on 10-18-2024 Opiates Ql (U) Positive < 300 ng/mL [facility] Comment on above: If confirmation test ing is needed, a separate order will be required to send out testing to the reference laboratory. RBC Auto (Bld) [#/Vol]Ordere d By: Gustabo Pérez on 10-18-2024 RBC (Bld) [#/Vol] 3.91 10*6/uL Low 4.6-6.2 [facility] Screening urine fentanyl ritu surementOrdered By: Brooks Carpenter on 10-18-2024 fentaNYL Screen Ql (U) Negative [facility] Serum creatinine measurement (mass/volume)Ordered By: Gustabo Pérez on 10-18-2024 Creatinine [Mass/Vol] 2.00 mg/dL High 0.70-1.20 [facility] Serum glucose measurement (m ass/volume)Ordered By: Gustabo Pérez on 10-18-2024 Glucose [Mass/Vol] 125 mg/dL High 70-99 [facility] Serum or plasma calcium francine urement (mass/volume)Ordered By: Gustabo Pérez on 10-18-2024 Calcium [Mass/Vol] 9.0 mg/dL 7.6-11.0 [facility] Serum or plasma urea nitroge n measurement (mass/volume)Ordered By: Gustabo Pérez on 10-18-2024 Urea nitrogen [Mass/Vol] 33 mg/dL High 4-19 [facility] Sodium levelOrdered By: Gustabo Pérez on 10-18-2024 Sodium [Moles/Vol] 139 mmol/L 133-145 [facility] Urine Drug Screen (VISTA)on 10-18-2024 AMPHETAMINES Negative Normal <1000 ng/mL [facility] Comment on above: Order Comment: PAIN MANAGMENT Performed By: #### L 3410.9992, L505.5000 ####[facility] [address] [place], [address] BARBITIURATES Negative Normal < 200 ng/mL [facility] Comment on above: Order Comment: PAIN MANAGMENT Performed By: #### L 3410.9992, L505.5000 ####[facility] [address] [place], [address] BENZODIAZIPINE Negative Normal < 200 ng/mL [facility] Comment on above: Order Comment: PAIN MANAGMENT Performed By: #### L 3410.9992, L505.5000 ####[facility] [address] [place], [address] BUP Ur Drug Scr Negative Normal < 200 ng/mL [facility] Comment on above: Order Comment: PAIN MANAGMENT Performed By: #### L 3410.9992, L505.5000 ####[facility] [address] [place], [address] COCAINE Negative Normal < 300 ng/mL [facility] Comment on above: Order Comment: PAIN MANAGMENT Performed By: #### L 3410.9992, L505.5000 ####[facility] [address] [place], [address] Fentanyl Negative Normal [facility] Comment on above: Order Comment: PAIN MANAGMENT Performed By: #### L 3410.9992, L505.5000 ####[facility] [address] [facility] [address] METHADONE Negative Normal < 300 ng/mL [facility] Comment on above: Order Comment: PAIN MANAGMENT Performed By: #### L 3410.9992, L505.5000 ####[facility] [address] [place], [address] OPIATES Positive Normal < 300 ng/mL [facility] Comment on above: Order Comment: PAIN MANAGMENT Result Comment: If c onfirmation testing is needed, a separate order will berequired to send out testing to the reference laboratory. Performed By: #### L 3410.9992, L505.5000 ####[facility] [address] [facility] [address] OXYCODONE Negative Normal < 100 ng/mL [facility] Comment on above: Order Comment: PAIN MANAGMENT Performed By: #### L 3410.9992, L505.5000 ####[facility] [address] [place], [address] PCP Negative Normal < 25 ng/mL [facility] Comment on above: Order Comment: PAIN MANAGMENT Performed By: #### L 3410.9992, L505.5000 ####[facility] [address] [place] [address] THC Negative Normal < 50 ng/mL [facility] Comment on above: Order Comment: PAIN MANAGMENT Performed By: #### L 3410.9992, L505.5000 ####[facility] [address] [place], [address] Urine benzodiazepine levelOr dered By: Ayman Basali on 10-18-2024 Benzodiazepines Ql (U) Negative < 200 ng/mL [facility] Urine cocaine levelOrdered B y: Ayman Basali on 10-18-2024 Cocaine Ql (U) Negative < 300 ng/mL [facility] Urine ixiqf-5-oanlnjxzdositg abinol (THC) measurementOrdered By: Brooks Carpenter on 10-18-2024 Cannabinoids Screen Ql (U) Negative < 50 ng/mL [facility] Urine phencyclidine (PCP) de tectionOrdered By: Brooks Carpenter on 10-18-2024 Phencyclidine Ql (U) Negative < 25 ng/mL [facility] White blood cell (WBC) count Ordered By: Gustabo Pérez on 10-18-2024 WBC (Bld) [#/Vol] 6.6 10*3/uL 4.4-11.0 [facility] Absolute lymphocyte countOrd ered By: Marycarmen Rodriguez on 09-29-2024 Lymphocytes Auto (Unsp spec) [#/Vol] 1.35 10*3/uL 0.83-4.51 [facility] Absolute neutrophil countOrd ered By: Marycarmen Rodriguez on 09-29-2024 Neutrophils (Bld) [#/Vol] 9.2 10*3/uL High 2.0-7.7 [facility] Automated lymphocyte count a s percentage of total leukocytesOrdered By: Marycarmen Rodriguez on 09-29-2024 Lymphocytes/100 WBC Auto (Unsp spec) 10.9 % Low 19-41 [facility] Basophil percentageOrdered B y: Marycarmen Rodriguez on 09-29-2024 Basophils/100 WBC (Bld) 0.6 % 0-1 [facility] CBC W/Diff, Automatedon 09-02 Absolute Lymph 1.35 X10 3/uL Normal 0.83-4.51 [facility] Comment on above: Performed By: #### L 503.6550, L503.0106, L100.0100, L503.6150 ####[facility] [address] [place], [address] Absolute Neut 9.2 X10 3/uL High 2.0-7.7 [facility] Comment on above: Performed By: #### L 503.6550, L503.0106, L100.0100, L503.6150 ####[facility] [address] [place], [address] Basophils/100 WBC (Bld) 0.6 % Normal 0-1 [facility] Comment on above: Performed By: #### L 503.6550, L503.0106, L100.0100, L503.6150 ####[facility] [address] [place], [address] Eosinophils/100 WBC (Bld) 0.7 % Normal 0-5 [facility] Comment on above: Performed By: #### L 503.6550, L503.0106, L100.0100, L503.6150 ####[facility] [address] [place], [address] Erythrocyte distribution width (RBC) [Ratio] 14.2 % Normal 11.6-14.6 [facility] Comment on above: Performed By: #### L 503.6550, L503.0106, L100.0100, L503.6150 ####[facility] [address] [place], [address] Hematocrit (Bld) [Volume fraction] 37.4 % Low 40-54 [facility] Comment on above: Performed By: #### L 503.6550, L503.0106, L100.0100, L503.6150 ####[facility] [address] [place], [address] Hemoglobin (Bld) [Mass/Vol] 12.1 g/dL Low 13.0-16.5 [facility] Comment on above: Performed By: #### L 503.6550, L503.0106, L100.0100, L503.6150 ####[facility] [address] [place], [address] IG% 3.600 High 0.0-0.9 [facility] Comment on above: Result Comment: IG% - Immature Granulocytes (promyelocytes, myelocytes andmetamyelocytes) > 1% indicates that a LEFT SHIFT is Present. Performed By: #### L 503.6550, L503.0106, L100.0100, L503.6150 ####[facility] [address] [place], [address] Lymphocytes/100 WBC (Bld) 10.9 % Low 19-41 [facility] Comment on above: Performed By: #### L 503.6550, L503.0106, L100.0100, L503.6150 ####[facility] [address] [place], [address] MCH (RBC) [Entitic mass] 29.6 pg Normal 27.0-32.0 [facility] Comment on above: Performed By: #### L 503.6550, L503.0106, L100.0100, L503.6150 ####[facility] [address] [place], [address] MCHC (RBC) [Mass/Vol] 32.4 g/dL Normal 32-36 [facility] Comment on above: Performed By: #### L 503.6550, L503.0106, L100.0100, L503.6150 ####[facility] [address] [place], [address] MCV (RBC) [Entitic vol] 91.4 fL Normal 80-94 [facility] Comment on above: Performed By: #### L 503.6550, L503.0106, L100.0100, L503.6150 ####[facility] [address] [place], [address] Monocytes/100 WBC (Bld) 9.9 % Normal 0-10 [facility] Comment on above: Performed By: #### L 503.6550, L503.0106, L100.0100, L503.6150 ####[facility] [address] [place], [address] Neutrophils/100 WBC (Bld) 74.3 % High 47-70 [facility] Comment on above: Performed By: #### L 503.6550, L503.0106, L100.0100, L503.6150 ####[facility] [address] [place], [address] Nucleated RBC (Bld) [#/Vol] 0 10*3/uL Normal 0-5 [facility] Comment on above: Performed By: #### L 503.6550, L503.0106, L100.0100, L503.6150 ####[facility] [address] [place], [address] Platelet mean volume (Bld) [Entitic vol] 12.3 fL High 6.2-12.0 [facility] Comment on above: Performed By: #### L 503.6550, L503.0106, L100.0100, L503.6150 ####[facility] [address] [place], [address] Platelets (Bld) [#/Vol] 169 10*3/uL Normal 150-450 [facility] Comment on above: Performed By: #### L 503.6550, L503.0106, L100.0100, L503.6150 ####[facility] [address] [place], [address] RBC (Bld) [#/Vol] 4.09 10*6/uL Low 4.6-6.2 [facility] Comment on above: Performed By: #### L 503.6550, L503.0106, L100.0100, L503.6150 ####[facility] [address] [place] [place], [address] RDW SD 47.4 fl High 35.1-43.9 [facility] Comment on above: Performed By: #### L 503.6550, L503.0106, L100.0100, L503.6150 ####[facility] [address] [place], [place], [id number]) WBC (Bld) [#/Vol] 12.4 10*3/uL High 4.4-11.0 [facility] Comment on above: Performed By: #### L 503.6550, L503.0106, L100.0100, L503.6150 ####[facility] [address] [place], [address] Eosinophil percentageOrdered By: Marycarmen Rodriguez on 09-29-2024 Eosinophils/100 WBC (Bld) 0.7 % 0-5 [facility] Erythrocyte distribution wid th ratioOrdered By: Marycarmen Rodriguez on 09-29-2024 Erythrocyte distribution width (RBC) [Ratio] 14.2 % 11.6-14.6 [facility] Erythrocyte distribution wid th standard deviationOrdered By: Marycarmen Rodriguez on 09-29-2024 Erythrocyte distribution width (RBC) [Ratio] 47.4 fl High 35.1-43.9 [facility] Ferritinon 09-29-2024 Ferritin [Mass/Vol] 454 ng/mL High 37-417 [facility] Comment on above: Performed By: #### L 503.6550, L503.0106, L100.0100, L503.6150 ####[facility] [address] [place], [address] Hematocrit Auto (Bld) [Volum e fraction]Ordered By: Marycarmen Rodriguez on 09-29-2024 Hematocrit (Bld) [Volume fraction] 37.4 % Low 40-54 [facility] Hemoglobin measurementOrdere d By: Marycarmen Rodriguez on 09-29-2024 Hemoglobin (Bld) [Mass/Vol] 12.1 g/dL Low 13.0-16.5 [facility] Immature granulocytes/100 WB C Auto (Bld)Ordered By: Marycarmen Rodriguez on 09-29-2024 Immature granulocytes/100 WBC (Bld) 3.600 % High 0.0-0.9 [facility] Comment on above: IG% - Immature Granu locytes (promyelocytes, myelocytes and metamyelocytes) > 1% indicates that a LEFT SHIFT is Present. Ironon 09-29-2024 Iron [Mass/Vol] 80 ug/dL Normal 65-175 [facility] Comment on above: Performed By: #### L 503.6550, L503.0106, L100.0100, L503.6150 ####[facility] [address] [place], [address] Iron measurement (mass/mass) Ordered By: Marycarmen Rodriguez on 09-29-2024 Iron (Unsp spec) [Mass/Mass] 80 ug/dL 65-175 [facility] MCV (mean corpuscular volume ) determinationOrdered By: Marycarmen Rodriguez on 09-29-2024 MCV (RBC) [Entitic vol] 91.4 fL 80-94 [facility] Mean corpuscular hemoglobin (MCH) determinationOrdered By: Marycarmen Rodriguez on 09-29-2024 MCH (RBC) [Entitic mass] 29.6 pg 27.0-32.0 [facility] Mean corpuscular hemoglobin concentration (MCHC) determinationOrdered By: Marycarmen Rodriguez on 09-29-2024 MCHC (RBC) [Mass/Vol] 32.4 g/dL 32-36 [facility] Mean platelet volume determi nationOrdered By: Marycarmen Rodriguez on 09-29-2024 Platelet mean volume (Bld) [Entitic vol] 12.3 fL High 6.2-12.0 [facility] Monocyte percentageOrdered B y: Marycarmen Rodriguez on 09-29-2024 Monocytes/100 WBC (Bld) 9.9 % 0-10 [facility] Neutrophil percentageOrdered By: Marycarmen Rodriguez on 09-29-2024 Neutrophils/100 WBC (Bld) 74.3 % High 47-70 [facility] Nucleated red blood cell per centageOrdered By: Marycarmen Rodriguez on 09-29-2024 Nucleated RBC/100 WBC (Bld) [Ratio] 0 % 0-5 [facility] Platelet countOrdered By: Ap Rodriguez on 09-29-2024 Platelets (Bld) [#/Vol] 169 10*3/uL 150-450 [facility] RBC Auto (Bld) [#/Vol]Ordere d By: Marycarmen Jennifer on 09-29-2024 RBC (Bld) [#/Vol] 4.09 10*6/uL Low 4.6-6.2 [facility] Serum or plasma ferritin ritu surement (mass/volume)Ordered By: Marycarmen Rodriguez on 09-29-2024 Ferritin [Mass/Vol] 454 ng/mL High 37-417 [facility] Vitamin B12on 09-29-2024 Cobalamin (Vitamin B12) [Mass/Vol] 766 pg/mL Normal 180-914 [facility] Comment on above: Performed By: #### L 503.6550, L503.0106, L100.0100, L503.6150 ####[facility] [address] [place], [address] Vitamin B12 ser/plasOrdered By: Marycarmen Rodriguez on 09-29-2024 Cobalamin (Vitamin B12) [Mass/Vol] 766 pg/mL 180-914 [facility] White blood cell (WBC) count Ordered By: Marycarmen Rodriguez on 09-29-2024 WBC (Bld) [#/Vol] 12.4 10*3/uL High 4.4-11.0 [facility] Absolute lymphocyte countOrd ered By: ELIAZAR Olivas on 09-20-2024 Lymphocytes Auto (Unsp spec) [#/Vol] 1.44 10*3/uL 0.83-4.51 [facility] Absolute neutrophil countOrd ered By: ELIAZAR Olivas on 09-20-2024 Neutrophils (Bld) [#/Vol] 6.6 10*3/uL 2.0-7.7 [facility] Automated lymphocyte count a s percentage of total leukocytesOrdered By: ELIAZAR Olivas on 09-20-2024 Lymphocytes/100 WBC Auto (Unsp spec) 15.5 % Low 19-41 [facility] Basophil percentageOrdered B y: ELIAZAR Olivas on 09-20-2024 Basophils/100 WBC (Bld) 0.3 % 0-1 [facility] CBC W/Diff, Automatedon 05-2 Absolute Lymph 1.44 X10 3/uL Normal 0.83-4.51 [facility] Comment on above: Performed By: #### L 100.0100, L503.7505 ####[facility] [address] [place], [address] Absolute Neut 6.6 X10 3/uL Normal 2.0-7.7 [facility] Comment on above: Performed By: #### L 100.0100, L503.7505 ####[facility] [address] [place], [address] Basophils/100 WBC (Bld) 0.3 % Normal 0-1 [facility] Comment on above: Performed By: #### L 100.0100, L503.7505 ####[facility] [address] [place], [address] Eosinophils/100 WBC (Bld) 1.5 % Normal 0-5 [facility] Comment on above: Performed By: #### L 100.0100, L503.7505 ####[facility] [address] [place], [address] Erythrocyte distribution width (RBC) [Ratio] 14.1 % Normal 11.6-14.6 [facility] Comment on above: Performed By: #### L 100.0100, L503.7505 ####[facility] [address] [place], [address] Hematocrit (Bld) [Volume fraction] 34.8 % Low 40-54 [facility] Comment on above: Performed By: #### L 100.0100, L503.7505 ####[facility] [address] [place], [address] Hemoglobin (Bld) [Mass/Vol] 11.1 g/dL Low 13.0-16.5 [facility] Comment on above: Performed By: #### L 100.0100, L503.7505 ####[facility] [address] [place], [address] IG% 0.800 Normal 0.0-0.9 [facility] Comment on above: Result Comment: IG% - Immature Granulocytes (promyelocytes, myelocytes andmetamyelocytes) > 1% indicates that a LEFT SHIFT is Present. Performed By: #### L 100.0100, L503.7505 ####[facility] [address] [place], [address] Lymphocytes/100 WBC (Bld) 15.5 % Low 19-41 [facility] Comment on above: Performed By: #### L 100.0100, L503.7505 ####[facility] [address] [place], [address] MCH (RBC) [Entitic mass] 29.4 pg Normal 27.0-32.0 [facility] Comment on above: Performed By: #### L 100.0100, L503.7505 ####[facility] [address] [place], [address] MCHC (RBC) [Mass/Vol] 31.9 g/dL Low 32-36 [facility] Comment on above: Performed By: #### L 100.0100, L503.7505 ####[facility] [address] [place], [address] MCV (RBC) [Entitic vol] 92.1 fL Normal 80-94 [facility] Comment on above: Performed By: #### L 100.0100, L503.7505 ####[facility] [address] [place], [address] Monocytes/100 WBC (Bld) 11.1 % High 0-10 [facility] Comment on above: Performed By: #### L 100.0100, L503.7505 ####[facility] [address] [place], [address] Neutrophils/100 WBC (Bld) 70.8 % High 47-70 [facility] Comment on above: Performed By: #### L 100.0100, L503.7505 ####[facility] [address] [place], [address] Nucleated RBC (Bld) [#/Vol] 0 10*3/uL Normal 0-5 [facility] Comment on above: Performed By: #### L 100.0100, L503.7505 ####[facility] [address] [place], [address] Platelet mean volume (Bld) [Entitic vol] 12.6 fL High 6.2-12.0 [facility] Comment on above: Performed By: #### L 100.0100, L503.7505 ####[facility] [address] [place], [address] Platelets (Bld) [#/Vol] 166 10*3/uL Normal 150-450 [facility] Comment on above: Performed By: #### L 100.0100, L503.7505 ####[facility] [address] [place], [address] RBC (Bld) [#/Vol] 3.78 10*6/uL Low 4.6-6.2 [facility] Comment on above: Performed By: #### L 100.0100, L503.7505 ####[facility] [address] [place], [address] RDW SD 48.0 fl High 35.1-43.9 [facility] Comment on above: Performed By: #### L 100.0100, L503.7505 ####[facility] [address] [place], [address] WBC (Bld) [#/Vol] 9.3 10*3/uL Normal 4.4-11.0 [facility] Comment on above: Performed By: #### L 100.0100, L5.5 ####[facility] [address] [place], [address] Eosinophil percentageOrdered By: ELIAZAR Olivas on 09-20-2024 Eosinophils/100 WBC (Bld) 1.5 % 0-5 [facility] Erythrocyte distribution wid th ratioOrdered By: ELIAZAR Olivas on 09-20-2024 Erythrocyte distribution width (RBC) [Ratio] 14.1 % 11.6-14.6 [facility] Erythrocyte distribution wid th standard deviationOrdered By: ELIAZAR Olivas on 09-20-2024 Erythrocyte distribution width (RBC) [Ratio] 48.0 fl High 35.1-43.9 [facility] Hematocrit Auto (Bld) [Volum e fraction]Ordered By: ELIAZAR Olivas on 09-20-2024 Hematocrit (Bld) [Volume fraction] 34.8 % Low 40-54 [facility] Hemoglobin measurementOrdere d By: ELIAZAR Olivas on 09-20-2024 Hemoglobin (Bld) [Mass/Vol] 11.1 g/dL Low 13.0-16.5 [facility] Immature granulocytes/100 WB C Auto (Bld)Ordered By: ELIAZAR Olivas on 09-20-2024 Immature granulocytes/100 WBC (Bld) 0.800 % 0.0-0.9 [facility] Comment on above: IG% - Immature Granu locytes (promyelocytes, myelocytes and metamyelocytes) > 1% indicates that a LEFT SHIFT is Present. L503.7505on 09-20-2024 Natriuretic peptide B (Bld) [Mass/Vol] 84 pg/mL Normal <=1800 [facility] Comment on above: Result Comment: Hear t Failure Unlikely: < 300 pg/mLHeart Failure Likely< 50 Years: > 450 pg/mL50-75 Years: > 900 pg/mL>75 Years: > 1800 pg/mL Performed By: #### L 100.0100, L5.5 ####[facility] [address] [place], [address] MCV (mean corpuscular volume ) determinationOrdered By: ELIAZAR Olivas on 09-20-2024 MCV (RBC) [Entitic vol] 92.1 fL 80-94 [facility] Mean corpuscular hemoglobin (MCH) determinationOrdered By: ELIAZAR Olivas on 09-20-2024 MCH (RBC) [Entitic mass] 29.4 pg 27.0-32.0 [facility] Mean corpuscular hemoglobin concentration (MCHC) determinationOrdered By: ELIAZAR Olivas on 09-20-2024 MCHC (RBC) [Mass/Vol] 31.9 g/dL Low 32-36 [facility] Mean platelet volume determi nationOrdered By: ELIAZAR Olivas on 09-20-2024 Platelet mean volume (Bld) [Entitic vol] 12.6 fL High 6.2-12.0 [facility] [facility] Monocyte percentageOrdered B y: ELIAZAR Olivas on 09-20-2024 Monocytes/100 WBC (Bld) 11.1 % High 0-10 [facility] Natriuretic peptide.B prohor efrem N-Terminal [Mass/volume] in Serum or PlasmaOrdered By: ELIAZAR Olivas on 09-20-2024 Natriuretic peptide.B prohormone N-Terminal [Mass/Vol] 84 pg/mL <1800 [facility] Comment on above: Heart Failure Unlike ly: < 300 pg/mLHeart Failure Likely< 50 Years: > 450 pg/mL50-75 Years: > 900 pg/mL>75 Years: > 1800 pg/mL Neutrophil percentageOrdered By: ELIAZAR Olivas on 09-20-2024 Neutrophils/100 WBC (Bld) 70.8 % High 47-70 [facility] Nucleated red blood cell per centageOrdered By: ELIAZAR Olivas on 09-20-2024 Nucleated RBC/100 WBC (Bld) [Ratio] 0 % 0-5 [facility] Platelet countOrdered By: ELIAZAR Olivas on 09-20-2024 Platelets (Bld) [#/Vol] 166 10*3/uL 150-450 [facility] Pulmonary Visit Reporton Pulmonary Visit Report Normal [facility] RBC Auto (Bld) [#/Vol]Ordere d By: ELIAZAR Marenjeremiah Olivas on 09-20-2024 RBC (Bld) [#/Vol] 3.78 10*6/uL Low 4.6-6.2 [facility] White blood cell (WBC) count Ordered By: ELIAZAR Olivas on 09-20-2024 WBC (Bld) [#/Vol] 9.3 10*3/uL 4.4-11.0 [facility] 6 Minute Walk Teston 025 6 Minute Walk Test Normal [facility] Pulmonary Visit Reporton Pulmonary Visit Report Normal [facility] BUN/creatinine ratioOrdered By: Marycarmen Rodriguez on 06-30-2024 Urea nitrogen/Creatinine [Mass ratio] 17.4 mg/mg - [facility] Basic Metabolic Profile (BMP )on 06-30-2024 Anion gap [Moles/Vol] 11 mmol/L Normal 5-15 [facility] Comment on above: Performed By: #### L 500.2500 ####[facility] [address] [place], [address] BUN/CRE 17.4 RATIO Normal - [facility] Comment on above: Performed By: #### L 500.2500 ####[facility] [address] [place], [address] Calcium [Mass/Vol] 9.7 mg/dL Normal 7.6-11.0 [facility] Comment on above: Performed By: #### L 500.2500 ####[facility] [address] [place], [address] Chloride [Moles/Vol] 105 mmol/L Normal 96-108 [facility] Comment on above: Performed By: #### L 500.2500 ####[facility] [address] [place], [address] CO2 [Moles/Vol] 25.3 mmol/L Normal 22.0-29.0 [facility] Comment on above: Performed By: #### L 500.2500 ####[facility] [address] [place], [address] Creatinine [Mass/Vol] 1.80 mg/dL High 0.70-1.20 [facility] Comment on above: Performed By: #### L 500.2500 ####[facility] [address] [place], [address] GFR/1.73 sq M.predicted among non-blacks MDRD (S/P/Bld) [Vol rate/Area] 38 mL/min/{1.73_m2} Low >60 [facility] Comment on above: Result Comment: mL/m in/1.73m2 CKD-EPI Creatinine Equation (2020) Performed By: #### L 500.2500 ####[facility] [address] [place], [address] Glucose [Mass/Vol] 112 mg/dL High 70-99 [facility] Comment on above: Performed By: #### L 500.2500 ####[facility] [address] [place], [address] Potassium [Moles/Vol] 4.8 mmol/L Normal 3.3-5.1 [facility] Comment on above: Performed By: #### L 500.2500 ####[facility] [address] [place], [address] Sodium [Moles/Vol] 141 mmol/L Normal 133-145 [facility] Comment on above: Performed By: #### L 500.2500 ####[facility] [address] [place], [address] Urea nitrogen [Mass/Vol] 31 mg/dL High 4-19 [facility] Comment on above: Performed By: #### L 500.2500 ####[facility] [address] [place], [address] Carbon dioxide measurementOr dered By: Marycarmen Rodriguez on 06-30-2024 CO2 [Moles/Vol] 25.3 mmol/L 22.0-29.0 [facility] Chloride measurementOrdered By: Marycarmen Rodriguez on 06-30-2024 Chloride [Moles/Vol] 105 mmol/L 96-108 [facility] GFR/1.73 sq M.predicted ana lilia g non-blacks MDRD (S/P/Bld) [Vol rate/Area]Ordered By: Marycarmen Rodriguez on 06-30-2024 Estimated GFR (MDRD) Non-Af Amer 38 Low >60 [facility] Comment on above: mL/min/1.73m2 CKD-EP I Creatinine Equation (2020) Glomerular filtration rate ( GFR) estimation/1.73 sq m using serum, plasma, or whole bOrdered By: Marycarmen Rodriguez on 06-30-2024 GFR/1.73 sq M.predicted among non-blacks MDRD (S/P/Bld) [Vol rate/Area] 38 mL/min/{1.73_m2} Low >60 [facility] Comment on above: mL/min/1.73m2 CKD-EP I Creatinine Equation (2020) Serum creatinine measurement (mass/volume)Ordered By: Marycarmen Rodriguez on 06-30-2024 Creatinine [Mass/Vol] 1.80 mg/dL High 0.70-1.20 [facility] Serum glucose measurement (m ass/volume)Ordered By: Marycarmen Rodriguez on 06-30-2024 Glucose [Mass/Vol] 112 mg/dL High 70-99 [facility] Serum or plasma anion gap de termination (moles/volume)Ordered By: Marycarmen Rodriguez on 06-30-2024 Anion gap [Moles/Vol] 11 mmol/L 5-15 [facility] Serum or plasma calcium francine urement (mass/volume)Ordered By: Marycarmen Rodriguez on 06-30-2024 Calcium [Mass/Vol] 9.7 mg/dL 7.6-11.0 [facility] Serum or plasma potassium me asurementOrdered By: Marycarmen Rodriguez on 06-30-2024 Potassium [Moles/Vol] 4.8 mmol/L 3.3-5.1 [facility] Serum or plasma sodium measu rement (moles/volume)Ordered By: Marycarmen Rodriguez on 06-30-2024 Sodium [Moles/Vol] 141 mmol/L 133-145 [facility] Serum or plasma urea nitroge n measurement (mass/volume)Ordered By: Marycarmen Rodriguez on 06-30-2024 Urea nitrogen [Mass/Vol] 31 mg/dL High 4-19 [facility] Absolute neutrophil countOrd ered By: Gustabo Pérez on 04-17-2024 Neutrophils (Bld) [#/Vol] 6.0 10*3/uL 2.0-7.7 [facility] BNP (brain natriuretic pepti de measurement)Ordered By: Gustabo Pérez on 04-17-2024 Natriuretic peptide B (Bld) [Mass/Vol] 37.2 pg/mL 0-100 [facility] BNP,B-Type NATRIURETIC PEPTI Sharon 04-17-2024 Natriuretic peptide B (Bld) [Mass/Vol] 37.2 pg/mL Normal 0-100 [facility] Comment on above: Performed By: #### L 500.2500, L100.0100, L503.6620 ####[facility] [address] [place], [address] Basic Metabolic Profile (BMP )on 04-17-2024 BUN/CRE 11.2 RATIO Normal 10-20 [facility] Comment on above: Performed By: #### L 500.2500, L100.0100, L503.6620 ####[facility] [address] [place], [address] CA,Total 9.0 mg/dL Normal 8.5-10.1 [facility] Comment on above: Performed By: #### L 500.2500, L100.0100, L503.6620 ####[facility] [address] [place], [address] Chloride [Moles/Vol] 107 mmol/L Normal 98-107 [facility] Comment on above: Performed By: #### L 500.2500, L100.0100, L503.6620 ####[facility] [address] [place], [address] CO2 [Moles/Vol] 27.0 mmol/L Normal 21.0-32.0 [facility] Comment on above: Performed By: #### L 500.2500, L100.0100, L503.6620 ####[facility] [address] [place], [address] Creatinine [Mass/Vol] 1.79 mg/dL High 0.70-1.30 [facility] Comment on above: Result Comment: The validity of the calculated GFR GFRAA in patients over70 years has not been determined. Clinical correlation isessential. Performed By: #### L 500.2500, L100.0100, L503.6620 ####[facility] [address] [place], [address] EST GFR - AA 47 mL/min Low >60 [facility] Comment on above: Result Comment: Afri can [place] GFR Calc Performed By: #### L 500.2500, L100.0100, L503.6620 ####[facility] [address] [place], [address] GAP 4 Low 5-15 [facility] Comment on above: Performed By: #### L 500.2500, L100.0100, L503.6620 ####[facility] [address] [place], [address] GFR/1.73 sq M.predicted among non-blacks MDRD (S/P/Bld) [Vol rate/Area] 39 mL/min/{1.73_m2} Low >60 [facility] Comment on above: Result Comment: Non- GFR Calc Performed By: #### L 500.2500, L100.0100, L503.6620 ####[facility] [address] [place], [address] Glucose [Mass/Vol] 228 mg/dL High 74-106 [facility] Comment on above: Result Comment: Gluc ose result greater than or equal to 200 mg/dLsuggests DIABETES MELLITUS per A.D.A. criteria. Performed By: #### L 500.2500, L100.0100, L503.6620 ####[facility] [address] [place], [address] Potassium [Moles/Vol] 4.8 mmol/L Normal 3.5-5.1 [facility] Comment on above: Performed By: #### L 500.2500, L100.0100, L503.6620 ####[facility] [address] [place], [address] Sodium [Moles/Vol] 138 mmol/L Normal 136-145 [facility] Comment on above: Performed By: #### L 500.2500, L100.0100, L503.6620 ####[facility] [address] [place], [address] Urea nitrogen [Mass/Vol] 20 mg/dL High 7-18 [facility] Comment on above: Performed By: #### L 500.2500, L100.0100, L503.6620 ####[facility] [address] [place], [address] Basophil percentageOrdered B y: Gustabo Pérez on 04-17-2024 Basophils/100 WBC (Bld) 0.5 % 0-1 [facility] Blood urea nitrogen (BUN)/cr eatinine ratioOrdered By: Gustabo Pérez on 04-17-2024 Urea nitrogen/Creatinine [Mass ratio] 11.2 mg/mg 10- [facility] CBC W/Diff, Automatedon 04-02 Absolute Lymph 1.29 X10 3/uL Normal 0.83-4.51 [facility] Comment on above: Performed By: #### L 500.2500, L100.0100, L503.6620 ####[facility] [address] [place], [address] Absolute Neut 6.0 X10 3/uL Normal 2.0-7.7 [facility] Comment on above: Performed By: #### L 500.2500, L100.0100, L503.6620 ####[facility] [address] [place], [address] Basophils/100 WBC (Bld) 0.5 % Normal 0-1 [facility] Comment on above: Performed By: #### L 500.2500, L100.0100, L503.6620 ####[facility] [address] [place], [address] Eosinophils/100 WBC (Bld) 1.2 % Normal 0-5 [facility] Comment on above: Performed By: #### L 500.2500, L100.0100, L503.6620 ####[facility] [address] [place], [address] Erythrocyte distribution width (RBC) [Ratio] 13.9 % Normal 11.6-14.6 [facility] Comment on above: Performed By: #### L 500.2500, L100.0100, L503.6620 ####[facility] [address] [place], [address] Hematocrit (Bld) [Volume fraction] 41.0 % Normal 40-54 [facility] Comment on above: Performed By: #### L 500.2500, L100.0100, L503.6620 ####[facility] [address] [place], [address] Hemoglobin (Bld) [Mass/Vol] 13.2 g/dL Normal 13.0-16.5 [facility] Comment on above: Performed By: #### L 500.2500, L100.0100, L503.6620 ####[facility] [address] [place], [address] IG% 0.600 Normal 0.0-0.9 [facility] Comment on above: Result Comment: IG% - Immature Granulocytes (promyelocytes, myelocytes andmetamyelocytes) > 1% indicates that a LEFT SHIFT is Present. Performed By: #### L 500.2500, L100.0100, L503.6620 ####[facility] [address] [place], [address] Lymphocytes/100 WBC (Bld) 15.7 % Low 19-41 [facility] Comment on above: Performed By: #### L 500.2500, L100.0100, L503.6620 ####[facility] [address] [place], [address] MCH (RBC) [Entitic mass] 29.2 pg Normal 27.0-32.0 [facility] Comment on above: Performed By: #### L 500.2500, L100.0100, L503.6620 ####[facility] [address] [place], [address] MCHC (RBC) [Mass/Vol] 32.2 g/dL Normal 32-36 [facility] Comment on above: Performed By: #### L 500.2500, L100.0100, L503.6620 ####[facility] [address] [place], [address] MCV (RBC) [Entitic vol] 90.7 fL Normal 80-94 [facility] Comment on above: Performed By: #### L 500.2500, L100.0100, L503.6620 ####[facility] [address] [place], [address] Monocytes/100 WBC (Bld) 8.5 % Normal 0-10 [facility] Comment on above: Performed By: #### L 500.2500, L100.0100, L503.6620 ####[facility] [address] [place], [address] Neutrophils/100 WBC (Bld) 73.5 % High 47-70 [facility] Comment on above: Performed By: #### L 500.2500, L100.0100, L503.6620 ####[facility] [address] [place], [address] Nucleated RBC (Bld) [#/Vol] 0 10*3/uL Normal 0-5 [facility] Comment on above: Performed By: #### L 500.2500, L100.0100, L503.6620 ####[facility] [address] [place], [address] Platelet mean volume (Bld) [Entitic vol] 12.3 fL High 6.2-12.0 [facility] Comment on above: Performed By: #### L 500.2500, L100.0100, L503.6620 ####[facility] [address] [place], [address] Platelets (Bld) [#/Vol] 185 10*3/uL Normal 150-450 [facility] Comment on above: Performed By: #### L 500.2500, L100.0100, L503.6620 ####[facility] [address] [place], [address] RBC (Bld) [#/Vol] 4.52 10*6/uL Low 4.6-6.2 [facility] Comment on above: Performed By: #### L 500.2500, L100.0100, L503.6620 ####[facility] [address] [place], [address] RDW SD 46.4 fl High 35.1-43.9 [facility] Comment on above: Performed By: #### L 500.2500, L100.0100, L503.6620 ####[facility] [address] [place], [place], [address] WBC (Bld) [#/Vol] 8.2 10*3/uL Normal 4.4-11.0 [facility] Comment on above: Performed By: #### L 500.2500, L100.0100, L503.6620 ####[facility] [address] [place], [address] Carbon dioxide measurementOr dered By: Gustabo Pérez on 04-17-2024 CO2 [Moles/Vol] 27.0 mmol/L 21.0-32.0 [facility] Cardiology Visit Reporton Cardiology Visit Report Normal [facility] Chloride measurementOrdered By: Gustabo Pérez on 04-17-2024 Chloride [Moles/Vol] 107 mmol/L 98-107 [facility] Eosinophil percentageOrdered By: Gustabo Pérez on 04-17-2024 Eosinophils/100 WBC (Bld) 1.2 % 0-5 [facility] Erythrocyte distribution wid th ratioOrdered By: Gustabo Pérez on 04-17-2024 Erythrocyte distribution width (RBC) [Ratio] 13.9 % 11.6-14.6 [facility] Erythrocyte distribution wid th standard deviationOrdered By: Gustabo Pérez on 04-17-2024 Erythrocyte distribution width (RBC) [Entitic vol] 46.4 fL High 35.1-43.9 [facility] Estimated glomerular filtrat ion rate (GFR) AmericanOrdered By: Gustabo Pérez on 04-17-2024 Estimated GFR (MDRD) Amer 47 mL/min Low >60 [facility] Comment on above: GFR Calc Glomerular filtration rate ( GFR) estimationOrdered By: Gustabo Pérez on 04-17-2024 Estimated GFR (MDRD) Non-Af Amer 39 mL/min Low >60 [facility] Comment on above: Non- GFR Calc Glucose measurementOrdered B y: Gustabo Pérez on 04-17-2024 Glucose [Mass/Vol] 228 mg/dL High 74-106 [facility] Comment on above: Glucose result great er than or equal to 200 mg/dLsuggests DIABETES MELLITUS per A.D.A. criteria. Hematocrit Auto (Bld) [Volum e fraction]Ordered By: Gustabo Pérez on 04-17-2024 Hematocrit (Bld) [Volume fraction] 41.0 % 40-54 [facility] Hemoglobin measurementOrdere d By: Gustabo Pérez on 04-17-2024 Hemoglobin (Bld) [Mass/Vol] 13.2 g/dL 13.0-16.5 [facility] Immature granulocytes/100 WB C Auto (Bld)Ordered By: Gustabo Pérez on 04-17-2024 Immature granulocytes/100 WBC (Bld) 0.600 % 0.0-0.9 [facility] Comment on above: IG% - Immature Granu locytes (promyelocytes, myelocytes and metamyelocytes) > 1% indicates that a LEFT SHIFT is Present. Lymphocytes Auto (Unsp spec) [#/Vol]Ordered By: Gustabo Pérez on 04-17-2024 Lymphocytes (Bld) [#/Vol] 1.29 10*3/uL 0.83-4.51 [facility] Lymphocytes/100 WBC Auto (Un sp spec)Ordered By: Gustabo Pérez on 04-17-2024 Lymphocytes/100 WBC (Bld) 15.7 % Low 19-41 [facility] MCV (mean corpuscular volume ) determinationOrdered By: Gustabo Pérez on 04-17-2024 MCV (RBC) [Entitic vol] 90.7 fL 80-94 [facility] Mean corpuscular hemoglobin (MCH) determinationOrdered By: Gustabo Pérez on 04-17-2024 MCH (RBC) [Entitic mass] 29.2 pg 27.0-32.0 [facility] Mean corpuscular hemoglobin concentration (MCHC) determinationOrdered By: Gustabo Pérez on 04-17-2024 MCHC (RBC) [Mass/Vol] 32.2 g/dL 32-36 [facility] Mean platelet volume determi nationOrdered By: Gustabo Pérez on 04-17-2024 Platelet mean volume (Bld) [Entitic vol] 12.3 fL High 6.2-12.0 [facility] Monocyte percentageOrdered B y: Gustabo Pérez on 04-17-2024 Monocytes/100 WBC (Bld) 8.5 % 0-10 [facility] Neutrophil percentageOrdered By: Gustabo Pérez on 04-17-2024 Neutrophils/100 WBC (Bld) 73.5 % High 47-70 [facility] Nucleated red blood cell per centageOrdered By: Gustabo Pérez on 04-17-2024 Nucleated RBC/100 WBC (Bld) [Ratio] 0 % 0-5 [facility] Platelet countOrdered By: Lydia Pérez on 04-17-2024 Platelets (Bld) [#/Vol] 185 10*3/uL 150-450 [facility] Potassium measurementOrdered By: Gustabo Pérez on 04-17-2024 Potassium [Moles/Vol] 4.8 mmol/L 3.5-5.1 [facility] RBC Auto (Bld) [#/Vol]Ordere d By: Gustabo Pérez on 04-17-2024 RBC (Bld) [#/Vol] 4.52 10*6/uL Low 4.6-6.2 [facility] Serum anion gap measurementO rdered By: Gustabo Pérez on 04-17-2024 Anion gap [Moles/Vol] 4 mmol/L Low 5-15 [facility] Serum or plasma calcium francine urement (mass/volume)Ordered By: Gustabo Pérez on 04-17-2024 Calcium [Mass/Vol] 9.0 mg/dL 8.5-10.1 [facility] Serum or plasma creatinine m easurement (mass/volume)Ordered By: Gustabo Pérez on 04-17-2024 Creatinine [Mass/Vol] 1.79 mg/dL High 0.70-1.30 [facility] Comment on above: The validity of the calculated GFR & GFRAA in patients over 70 years has not been determined. Clinical correlation is essential. Serum or plasma urea nitroge n measurement (mass/volume)Ordered By: Gustabo Pérez on 04-17-2024 Urea nitrogen [Mass/Vol] 20 mg/dL High 7-18 [facility] Sodium levelOrdered By: Gustabo Pérez on 04-17-2024 Sodium [Moles/Vol] 138 mmol/L 136-145 [facility] White blood cell (WBC) count Ordered By: Gustabo Pérez on 04-17-2024 WBC (Bld) [#/Vol] 8.2 10*3/uL 4.4-11.0 [facility] Office Visit Reporton 2023 Office Visit Report Normal [facility] Albumin to globulin ratioOrd ered By: Jose Hay on 03-23-2024 Albumin/Globulin [Mass ratio] 1.1 {ratio} 0.9-2.4 [facility] Bilirubin, totalOrdered By: Jose Hay on 03-23-2024 Bilirubin [Mass/Vol] 2.00 mg/dL High 0.20-1.00 [facility] Comment on above: For patients on eltr ombopag therapy, use of Dimension [place] TBIL is not recommended. Blood urea nitrogen (BUN)/cr eatinine ratioOrdered By: Jose Hay on 03-23-2024 Urea nitrogen/Creatinine [Mass ratio] 18.0 mg/mg 10-20 [facility] Carbon dioxide measurementOr dered By: Jose Hay on 03-23-2024 CO2 [Moles/Vol] 28.0 mmol/L 21.0-32.0 [facility] Chloride measurementOrdered By: Jose Hay on 03-23-2024 Chloride [Moles/Vol] 104 mmol/L 98-107 [facility] Comprehensive Metabolic Prof ilon 03-23-2024 Albumin [Mass/Vol] 3.7 g/dL Normal 3.2-5.0 [facility] Comment on above: Order Comment: DR REMY ORDERED BMP AND MAGNESIUM.DR HAY ORDERED LIPID CMP TSH. RANGLE Performed By: #### L 500.4050, L501.9520, L501.5200, L500.4100 ####[facility] [address] [place], [address] Albumin/Globulin [Mass ratio] 1.1 {ratio} Normal 0.9-2.4 [facility] Comment on above: Order Comment: DR REMY ORDERED BMP AND MAGNESIUM.DR HAY ORDERED LIPID CMP TSH. RANGLE Performed By: #### L 500.4050, L501.9520, L501.5200, L500.4100 ####[facility] [address] [place], [address] ALK P 92 U/L Normal 45-117 [facility] Comment on above: Order Comment: DR REMY ORDERED BMP AND MAGNESIUM.DR HAY ORDERED LIPID CMP TSH. RANGLE Performed By: #### L 500.4050, L501.9520, L501.5200, L500.4100 ####[facility] [address] [place], [address] ALT [Catalytic activity/Vol] 52 U/L Normal 16-61 [facility] Comment on above: Order Comment: DR REMY ORDERED BMP AND MAGNESIUM.DR HAY ORDERED LIPID CMP TSH. RANGLE Performed By: #### L 500.4050, L501.9520, L501.5200, L500.4100 ####[facility] [address] [place], [address] AST [Catalytic activity/Vol] 28 U/L Normal 15-37 [facility] Comment on above: Order Comment: DR REMY ORDERED BMP AND MAGNESIUM.DR HAY ORDERED LIPID CMP TSH. RANGLE Performed By: #### L 500.4050, L501.9520, L501.5200, L500.4100 ####[facility] [address] [place], [address] Bilirubin [Mass/Vol] 2.00 mg/dL High 0.20-1.00 [facility] Comment on above: Order Comment: DR REMY ORDERED BMP AND MAGNESIUM.DR HAY ORDERED LIPID CMP TSH. RANGLE Result Comment: For patients on eltrombopag therapy, use of Dimension [place] TBIL is not recommended. Performed By: #### L 500.4050, L501.9520, L501.5200, L500.4100 ####[facility] [address] [place], [address] BUN/CRE 18.0 RATIO Normal 10-20 [facility] Comment on above: Order Comment: DR REMY ORDERED BMP AND MAGNESIUM.DR HAY ORDERED LIPID CMP TSH. RANGLE Performed By: #### L 500.4050, L501.9520, L501.5200, L500.4100 ####[facility] [address] [place], [address] CA,Total 8.8 mg/dL Normal 8.5-10.1 [facility] Comment on above: Order Comment: DR REMY ORDERED BMP AND MAGNESIUM.DR HAY ORDERED LIPID CMP TSH. RANGLE Performed By: #### L 500.4050, L501.9520, L501.5200, L500.4100 ####[facility] [address] [place], [address] Chloride [Moles/Vol] 104 mmol/L Normal 98-107 [facility] Comment on above: Order Comment: DR REMY ORDERED BMP AND MAGNESIUM.DR HAY ORDERED LIPID CMP TSH. RANGLE Performed By: #### L 500.4050, L501.9520, L501.5200, L500.4100 ####[facility] [address] [place], [address] CO2 [Moles/Vol] 28.0 mmol/L Normal 21.0-32.0 [facility] Comment on above: Order Comment: DR REMY ORDERED BMP AND MAGNESIUM.DR HAY ORDERED LIPID CMP TSH. RANGLE Performed By: #### L 500.4050, L501.9520, L501.5200, L500.4100 ####[facility] [address] [place], [address] Creatinine [Mass/Vol] 1.67 mg/dL High 0.70-1.30 [facility] Comment on above: Order Comment: DR REMY ORDERED BMP AND MAGNESIUM.DR HAY ORDERED LIPID CMP TSH. RANGLE Result Comment: The validity of the calculated GFR GFRAA in patients over70 years has not been determined. Clinical correlation isessential. Performed By: #### L 500.4050, L501.9520, L501.5200, L500.4100 ####[facility] [address] [place], [address] EST GFR - AA 51 mL/min Low >60 [facility] Comment on above: Order Comment: DR REMY ORDERED BMP AND MAGNESIUM.DR HAY ORDERED LIPID CMP TSH. RANGLE Result Comment: Afri can [place] GFR Calc Performed By: #### L 500.4050, L501.9520, L501.5200, L500.4100 ####[facility] [address] [place], [address] GAP 6 Normal 5-15 [facility] [facility] Comment on above: Order Comment: DR REMY ORDERED BMP AND MAGNESIUM.DR HAY ORDERED LIPID CMP TSH. RANGLE Performed By: #### L 500.4050, L501.9520, L501.5200, L500.4100 ####[facility] [id number] [place], [address] GFR/1.73 sq M.predicted among non-blacks MDRD (S/P/Bld) [Vol rate/Area] 42 mL/min/{1.73_m2} Low >60 [facility] Comment on above: Order Comment: DR REMY ORDERED BMP AND MAGNESIUM.DR HAY ORDERED LIPID CMP TSH. RANGLE Result Comment: Non- GFR Calc Performed By: #### L 500.4050, L501.9520, L501.5200, L500.4100 ####[facility] [address] [place], [address] Globulin (S) [Mass/Vol] 3.3 g/dL Normal 2.2-4.2 [facility] Comment on above: Order Comment: DR REMY ORDERED BMP AND MAGNESIUM.DR HAY ORDERED LIPID CMP TSH. RANGLE Performed By: #### L 500.4050, L501.9520, L501.5200, L500.4100 ####[facility] [address] [place], [address] Glucose [Mass/Vol] 146 mg/dL High 74-106 [facility] Comment on above: Order Comment: DR REMY ORDERED BMP AND MAGNESIUM.DR HAY ORDERED LIPID CMP TSH. RANGLE Result Comment: Fast ing Glucose result greater than or equal to 126 mg/dLsuggests DIABETES MELLITUS per A.D.A. criteria. Performed By: #### L 500.4050, L501.9520, L501.5200, L500.4100 ####[facility] [address] [place], [address] Potassium [Moles/Vol] 4.4 mmol/L Normal 3.5-5.1 [facility] Comment on above: Order Comment: DR REMY ORDERED BMP AND MAGNESIUM.DR HAY ORDERED LIPID CMP TSH. RANGLE Performed By: #### L 500.4050, L501.9520, L501.5200, L500.4100 ####[facility] [address] [place], [address] Sodium [Moles/Vol] 138 mmol/L Normal 136-145 [facility] Comment on above: Order Comment: DR REMY ORDERED BMP AND MAGNESIUM.DR HAY ORDERED LIPID CMP TSH. RANGLE Performed By: #### L 500.4050, L501.9520, L501.5200, L500.4100 ####[facility] [address] [place], [address] T PROT 7.0 g/dL Normal 6.4-8.2 [facility] Comment on above: Order Comment: DR REMY ORDERED BMP AND MAGNESIUM.DR HAY ORDERED LIPID CMP TSH. RANGLE Performed By: #### L 500.4050, L501.9520, L501.5200, L500.4100 ####[facility] [address] [place], [address] Urea nitrogen [Mass/Vol] 30 mg/dL High 7-18 [facility] Comment on above: Order Comment: DR REMY ORDERED BMP AND MAGNESIUM.DR HAY ORDERED LIPID CMP TSH. RANGLE Performed By: #### L 500.4050, L501.9520, L501.5200, L500.4100 ####[facility] [address] [place], [address] Estimated glomerular filtrat ion rate (GFR) AmericanOrdered By: Jose Hay on 03-23-2024 Estimated GFR (MDRD) Amer 51 mL/min Low >60 [facility] Comment on above: GFR Calc Glomerular filtration rate ( GFR) estimationOrdered By: Jose Hay on 03-23-2024 Estimated GFR (MDRD) Non-Af Amer 42 mL/min Low >60 [facility] Comment on above: Non- GFR Calc Glucose measurementOrdered B y: Jose Hay on 03-23-2024 Glucose [Mass/Vol] 146 mg/dL High 74-106 [facility] Comment on above: Fasting Glucose resu lt greater than or equal to 126 mg/dL suggests DIABETES MELLITUS per A.D.A. criteria. High density lipoprotein (HD L) measurementOrdered By: Jose Hay on 03-23-2024 Cholesterol in HDL [Mass/Vol] 52 mg/dL >40 [facility] Comment on above: The drugs N-Acetylcy steine and Metamizole may falsely depress this assay. Reference Range HDL <40 mg/dL Low HDL Cholesterol HDL >or= 60 mg/dL High HDL Cholesterol Laboratory - Chemistry and C hemistry - challengeOrdered By: Jose Hay on 03-23-2024 AST [Catalytic activity/Vol] 28 U/L 15-37 [facility] Lipid Profileon 03-23-2024 Cholesterol [Mass/Vol] 158 mg/dL Normal 200 [facility] Comment on above: Order Comment: DR REMY ORDERED BMP AND MAGNESIUM.DR HAY ORDERED LIPID CMP TSH. RANGLE Result Comment: <200 mg/dL Desirable 200-240 mg/dL Borderline >240 mg/dL High Risk Performed By: #### L 500.4050, L501.9520, L501.5200, L500.4100 ####[facility] [address] [place], [address] Cholesterol in HDL [Mass/Vol] 52 mg/dL Normal [facility] Comment on above: Order Comment: DR REMY ORDERED BMP AND MAGNESIUM.DR HAY ORDERED LIPID CMP TSH. RANGLE Result Comment: The drugs N-Acetylcysteine and Metamizole may falselydepress this assay. Reference Range HDL <40 mg/dL Low HDL Cholesterol HDL >or= 60 mg/dL High HDL Cholesterol Performed By: #### L 500.4050, L501.9520, L501.5200, L500.4100 ####[facility] [address] [place], [address] Cholesterol in LDL [Mass/Vol] 61 mg/dL Normal 0-130 [facility] Comment on above: Order Comment: DR REMY ORDERED BMP AND MAGNESIUM.DR HAY ORDERED LIPID CMP TSH. RANGLE Performed By: #### L 500.4050, L501.9520, L501.5200, L500.4100 ####[facility] [address] [place], [address] Cholesterol in VLDL [Mass/Vol] 45 mg/dL High 5-40 [facility] Comment on above: Order Comment: DR REMY ORDERED BMP AND MAGNESIUM.DR HAY ORDERED LIPID CMP TSH. RANGLE Performed By: #### L 500.4050, L501.9520, L501.5200, L500.4100 ####[facility] [address] [place], [address] Triglyceride [Mass/Vol] 225 mg/dL High [facility] Comment on above: Order Comment: DR REMY ORDERED BMP AND MAGNESIUM.DR HAY ORDERED LIPID CMP TSH. RANGLE Result Comment: The drugs N-Acetylcysteine and Metamizole may falselydepress this assay.Serum Triglycerides Reference Interval Normal <150 mg/dL Borderline high 150 - 199 mg/dL High 200 - 499 mg/dL Very High > or = 500 mg/dL Performed By: #### L 500.4050, L501.9520, L501.5200, L500.4100 ####[facility] [address] [place], [place], [address] Low density lipoprotein (LDL ) cholesterol measurementOrdered By: Jose Hay on 03-23-2024 Cholesterol in LDL [Mass/Vol] 61 mg/dL 0-130 [facility] Magnesiumon 03-23-2024 Magnesium [Mass/Vol] 2.1 mg/dL Normal 1.6-2.6 [facility] Comment on above: Order Comment: DR REMY ORDERED BMP AND MAGNESIUM.DR HAY ORDERED LIPID CMP TSH. RANGLE Performed By: #### L 500.4050, L501.9520, L501.5200, L500.4100 ####[facility] [address] [place], [place], [address] Magnesium measurementOrdered By: Jose Hay on 03-23-2024 Magnesium [Mass/Vol] 2.1 mg/dL 1.6-2.6 [facility] Potassium measurementOrdered By: Jose Hay on 03-23-2024 Potassium [Moles/Vol] 4.4 mmol/L 3.5-5.1 [facility] Serum anion gap measurementO rdered By: Jose Hay on 03-23-2024 Anion gap [Moles/Vol] 6 mmol/L 5-15 [facility] Serum globulin measurementOr dered By: Jose Hay on 03-23-2024 Globulin (S) [Mass/Vol] 3.3 g/dL 2.2-4.2 [facility] Serum or plasma alanine guerrero otransferase (ALT) measurementOrdered By: Jose Hay on 03-23-2024 ALT [Catalytic activity/Vol] 52 U/L 16-61 [facility] Serum or plasma albumin francine urement (mass/volume)Ordered By: Jose Hay on 03-23-2024 Albumin [Mass/Vol] 3.7 g/dL 3.2-5.0 [facility] Serum or plasma alkaline bell sphatase measurementOrdered By: Jose Hay on 03-23-2024 ALP [Catalytic activity/Vol] 92 U/L 45-117 [facility] Serum or plasma calcium francine urement (mass/volume)Ordered By: Jose Hay on 03-23-2024 Calcium [Mass/Vol] 8.8 mg/dL 8.5-10.1 [facility] Serum or plasma cholesterol measurement (mass/volume)Ordered By: Jose Hay on 03-23-2024 Cholesterol [Mass/Vol] 158 mg/dL <200 [facility] Comment on above: <200 mg/dL Desirable 200-240 mg/dL Borderline >240 mg/dL High Risk Serum or plasma creatinine m easurement (mass/volume)Ordered By: Jose Hay on 03-23-2024 Creatinine [Mass/Vol] 1.67 mg/dL High 0.70-1.30 [facility] Comment on above: The validity of the calculated GFR & GFRAA in patients over 70 years has not been determined. Clinical correlation is essential. Serum or plasma urea nitroge n measurement (mass/volume)Ordered By: Jose Hay on 03-23-2024 Urea nitrogen [Mass/Vol] 30 mg/dL High 7-18 [facility] Sodium levelOrdered By: Ernst Hay on 03-23-2024 Sodium [Moles/Vol] 138 mmol/L 136-145 [facility] TSH QnOrdered By: Jose rodriguez on 03-23-2024 Thyroid Stimulating Hormone (TSH) 5.340 uIU/mL High 0.358-3.74 0 [facility] Thyroid Stim Hormone (TSH)on 03-23-2024 TSH 5.340 uIU/mL High 0.358-3.74 0 [facility] Comment on above: Order Comment: DR REMY ORDERED BMP AND MAGNESIUM.DR HAY ORDERED LIPID CMP TSH. RANGLE Performed By: #### L 500.0058, L501.7837, L501.6690, L500.4100 ####[facility] [id number] [place], [place], [id number] Total proteinOrdered By: Emmanuel Hay on 03-23-2024 Protein [Mass/Vol] 7.0 g/dL 6.4-8.2 [facility] Triglycerides measurementOrd ered By: Jose Hay on 03-23-2024 Triglyceride [Mass/Vol] 225 mg/dL High <199 [facility] Comment on above: The drugs N-Acetylcy steine and Metamizole may falsely depress this assay.Serum Triglycerides Reference Interval Normal <150 mg/dL Borderline high 150 - 199 mg/dL High 200 - 499 mg/dL Very High > or = 500 mg/dL Very low density lipoprotein (VLDL) cholesterol measurementOrdered By: Jose Hay on 03-23-2024 VLDL Cholesterol 45 mg/dL High 5-40 [facility] Cardiology Visit Reporton Cardiology Visit Report Normal [facility] Basophil percentageOrdered B y: Marycarmen Rodriguez on 05-07-2023 Chloride [Moles/Vol] 103 mmol/L 98-107 [facility] Glucose [Mass/Vol] 172 mg/dL 74-106 [facility] Comment on above: Fasting Glucose resu lt greater than or equal to 126 mg/dL suggests DIABETES MELLITUS per A.D.A. criteria. Potassium [Moles/Vol] 3.7 mmol/L 3.5-5.1 [facility] Sodium [Moles/Vol] 138 mmol/L 136-145 [facility] Laboratory - Chemistry and C hemistry - challengeOrdered By: Marycarmen Rodriguez on 05-07-2023 CO2 [Moles/Vol] 27.0 mmol/L 21.0-32.0 [facility] Urea nitrogen/Creatinine [Mass ratio] 13.9 mg/mg 10-20 [facility] No Panel InformationOrdered By: Marycarmen Rodriguez on 05-07-2023 Estimated GFR (MDRD) Amer 74 mL/min >60 [facility] Comment on above: GFR Calc Estimated GFR (MDRD) Non-Af Amer 61 mL/min >60 [facility] Comment on above: Non- GFR Calc Serum or plasma calcium francine urement (mass/volume)Ordered By: Marycarmen Rodriguez on 05-07-2023 Calcium [Mass/Vol] 8.6 mg/dL 8.5-10.1 [facility] Serum or plasma creatinine m easurement (mass/volume)Ordered By: Marycarmen Rodriguez on 05-07-2023 Creatinine [Mass/Vol] 1.22 mg/dL 0.70-1.30 [facility] Comment on above: The validity of the calculated GFR & GFRAA in patients over 70 years has not been determined. Clinical correlation is essential. Serum or plasma urea nitroge n measurement (mass/volume)Ordered By: Marycarmen Rodriguez on 05-07-2023 Urea nitrogen [Mass/Vol] 17 mg/dL 7-18 [facility] Thin prep Papanicolaou smear with manual screeningOrdered By: Marycarmen Rodriguez on 05-07-2023 Thin prep Papanicolaou smear with manual screening 8 5-15 [facility] Basophil percentageOrdered B y: Jose Hay on 12-15-2022 Chloride [Moles/Vol] 110 mmol/L 98-107 [facility] Glucose [Mass/Vol] 121 mg/dL 74-106 [facility] Comment on above: Fasting Glucose resu lt from 100 to 125 mg/dL suggests IMPAIRED HOMEOSTASIS per A.D.A. criteria. Potassium [Moles/Vol] 4.0 mmol/L 3.5-5.1 [facility] Sodium [Moles/Vol] 139 mmol/L 136-145 [facility] WBC (Bld) [#/Vol] 7.3 10*3/uL 4.4-11.0 [facility] Blood erythrocytes count (nu mber/volume)Ordered By: Jose Hay on 12-15-2022 RBC (Bld) [#/Vol] 5.18 10*6/uL 4.6-6.2 [facility] Blood hemoglobin measurement (mass/volume)Ordered By: Jose Hay on 12-15-2022 Hemoglobin (Bld) [Mass/Vol] 15.2 g/dL 13.0-16.5 [facility] Blood platelet mean volumeOr dered By: Jose Hay on 12-15-2022 Platelet mean volume (Bld) [Entitic vol] 12.2 fL 6.2-12.0 [facility] Determination of erythrocyte mean corpuscular volume (MCV)Ordered By: Jose Hay on 12-15-2022 MCV (RBC) [Entitic vol] 90.2 fL 80-94 [facility] Hematocrit Auto (Bld) [Volum e fraction]Ordered By: Jose Hay on 12-15-2022 Hematocrit (Bld) [Volume fraction] 46.7 % 40-54 [facility] Laboratory - Chemistry and C hemistry - challengeOrdered By: Jose Hay on 12-15-2022 CO2 [Moles/Vol] 23.0 mmol/L 21.0-32.0 [facility] Natriuretic peptide B (Bld) [Mass/Vol] 38.1 pg/mL 0-100 [facility] Urea nitrogen/Creatinine [Mass ratio] 13.5 mg/mg 10-20 [facility] Laboratory - Hematology and Cell countsOrdered By: Jose Hay on 12-15-2022 Erythrocyte distribution width (RBC) [Entitic vol] 47.5 fL 35.1-43.9 [facility] Erythrocyte distribution width (RBC) [Ratio] 14.4 % 11.6-14.6 [facility] MCH (RBC) [Entitic mass] 29.3 pg 27.0-32.0 [facility] MCHC Auto (RBC) [Mass/Vol]Or dered By: Jose Hay on 12-15-2022 MCHC (RBC) [Mass/Vol] 32.5 g/dL 32-36 [facility] No Panel InformationOrdered By: Jose Hay on 12-15-2022 Estimated GFR (MDRD) Amer 83 mL/min >60 [facility] Comment on above: GFR Calc Estimated GFR (MDRD) Non-Af Amer 68 mL/min >60 [facility] Comment on above: Non- GFR Calc Platelets bldOrdered By: Emmanuel Hay on 12-15-2022 Platelets (Bld) [#/Vol] 143 10*3/uL 150-450 [facility] Serum or plasma calcium francine urement (mass/volume)Ordered By: Jose Hay on 12-15-2022 Calcium [Mass/Vol] 8.8 mg/dL 8.5-10.1 [facility] Serum or plasma creatinine m easurement (mass/volume)Ordered By: Jose Hay on 12-15-2022 Creatinine [Mass/Vol] 1.11 mg/dL 0.70-1.30 [facility] Comment on above: The validity of the calculated GFR & GFRAA in patients over 70 years has not been determined. Clinical correlation is essential. Serum or plasma urea nitroge n measurement (mass/volume)Ordered By: Jose Hay on 12-15-2022 Urea nitrogen [Mass/Vol] 15 mg/dL 7-18 [facility] Thin prep Papanicolaou smear with manual screeningOrdered By: Jose Hay on 12-15-2022 Thin prep Papanicolaou smear with manual screening 6 5-15 [facility] Absolute lymphocyte countOrd ered By: Luz Elena Mckeon on 10-13-2022 Lymphocytes Auto (Unsp spec) [#/Vol] 1.21 10*3/uL 0.83-4.51 [facility] Basophil percentageOrdered B y: Luz Elena Mckeon on 10-13-2022 Basophils/100 WBC (Bld) 0.5 % 0-1 [facility] Chloride [Moles/Vol] 106 mmol/L 98-107 [facility] Eosinophils/100 WBC (Bld) 1.4 % 0-5 [facility] Glucose [Mass/Vol] 277 mg/dL 74-106 [facility] Comment on above: Glucose result great er than or equal to 200 mg/dLsuggests DIABETES MELLITUS per A.D.A. criteria. Neutrophils (Bld) [#/Vol] 4.0 10*3/uL 2.0-7.7 [facility] Neutrophils/100 WBC (Bld) 68.5 % 47-70 [facility] Potassium [Moles/Vol] 4.1 mmol/L 3.5-5.1 [facility] Sodium [Moles/Vol] 139 mmol/L 136-145 [facility] WBC (Bld) [#/Vol] 5.8 10*3/uL 4.4-11.0 [facility] Blood erythrocytes count (nu mber/volume)Ordered By: Luz Elena Mckeon on 10-13-2022 RBC (Bld) [#/Vol] 4.66 10*6/uL 4.6-6.2 [facility] Blood hemoglobin measurement (mass/volume)Ordered By: Luz Elena Mckeon on 10-13-2022 Hemoglobin (Bld) [Mass/Vol] 13.6 g/dL 13.0-16.5 [facility] Blood lymphocytes/100 leukoc ytesOrdered By: Luz Elena Mckeon on 10-13-2022 Lymphocytes/100 WBC (Bld) 20.7 % 19-41 [facility] Blood monocytes/100 leukocyt esOrdered By: Luz Elena Mckeon on 10-13-2022 Monocytes/100 WBC (Bld) 8.6 % 0-10 [facility] Blood platelet mean volumeOr dered By: Luz Elena Mckeon on 10-13-2022 Platelet mean volume (Bld) [Entitic vol] 12.6 fL 6.2-12.0 [facility] Determination of erythrocyte mean corpuscular volume (MCV)Ordered By: Luz Elena Mckeon on 10-13-2022 MCV (RBC) [Entitic vol] 89.5 fL 80-94 [facility] Hematocrit Auto (Bld) [Volum e fraction]Ordered By: Luz Elena Mckeon on 10-13-2022 Hematocrit (Bld) [Volume fraction] 41.7 % 40-54 [facility] Laboratory - Chemistry and C hemistry - challengeOrdered By: Luz Elena Mckeon on 10-13-2022 CO2 [Moles/Vol] 27.0 mmol/L 21.0-32.0 [facility] Free T4 [Mass/Vol] 0.77 ng/dL 0.76-1.46 [facility] Magnesium [Mass/Vol] 2.1 mg/dL 1.6-2.6 [facility] Natriuretic peptide B (Bld) [Mass/Vol] 47.2 pg/mL 0-100 [facility] Urea nitrogen/Creatinine [Mass ratio] 17.2 mg/mg 10-20 [facility] Laboratory - Hematology and Cell countsOrdered By: Luz Elena Mckeon on 10-13-2022 Erythrocyte distribution width (RBC) [Entitic vol] 46.1 fL 35.1-43.9 [facility] Erythrocyte distribution width (RBC) [Ratio] 14.1 % 11.6-14.6 [facility] Immature granulocytes/100 WBC (Bld) 0.300 % 0.0-0.9 [facility] Comment on above: IG% - Immature Granu locytes (promyelocytes, myelocytes and metamyelocytes) > 1% indicates that a LEFT SHIFT is Present. MCH (RBC) [Entitic mass] 29.2 pg 27.0-32.0 [facility] Nucleated RBC/100 WBC (Bld) [Ratio] 0 % 0[facility]5 [facility] [Mass/Vol]Or dered By: Luz Elena Mckeon on 10-13-2022 MCHC (RBC) [Mass/Vol] 32.6 g/dL 32-36 [facility] No Panel InformationOrdered By: Luz Elena Mckeon on 10-13-2022 Estimated GFR (MDRD) Amer 61 mL/min >60 [facility] Comment on above: GFR Calc Estimated GFR (MDRD) Non-Af Amer 50 mL/min >60 [facility] Comment on above: Non- GFR Calc Free Triiodothyronine (T3) pg/dL 2.7 pg/mL 2.18-3.98 [facility] Thyroid Stimulating Hormone (TSH) 4.12 uIU/mL 0.358-3.74 [facility] Platelets bldOrdered By: Loco Mckeon on 10-13-2022 Platelets (Bld) [#/Vol] 126 10*3/uL 150-450 [facility] Serum or plasma calcium francine urement (mass/volume)Ordered By: Luz Elena Mckeon on 10-13-2022 Calcium [Mass/Vol] 8.5 mg/dL 8.5-10.1 [facility] Serum or plasma creatinine m easurement (mass/volume)Ordered By: Luz Elena Mckeon on 10-13-2022 Creatinine [Mass/Vol] 1.45 mg/dL 0.70-1.30 [facility] Comment on above: The validity of the calculated GFR & GFRAA in patients over 70 years has not been determined. Clinical correlation is essential. Serum or plasma urea nitroge n measurement (mass/volume)Ordered By: Luz Elena Mckeon on 10-13-2022 Urea nitrogen [Mass/Vol] 25 mg/dL 7-18 [facility] Thin prep Papanicolaou smear with manual screeningOrdered By: Luz Elena Mckeon on 10-13-2022 Thin prep Papanicolaou smear with manual screening 6 5-15 [facility] COVID-19 virus antigen assay Ordered By: Shaan Santos on 09-21-2022 SARS-CoV-2 (COVID-19) Ag IA.rapid Ql (Resp) [facility] COVID-19 virus antigen assay Ordered By: Dr. Santos on 09-21-2022 SARS-CoV-2 (COVID-19) Ag IA.rapid Ql (Resp) [facility] Glucose Glucometer (BldC) [M ass/Vol]Ordered By: Dr. Santos on 09-21-2022 Glucose [Mass/Vol] 193 mg/dL 74-106 [facility] Comment on above: MANAGEMENT OF PATIEN T CARE PER NURSING PROTOCOL Absolute lymphocyte countOrd ered By: Dr. Leo on 09-18-2022 Lymphocytes Auto (Unsp spec) [#/Vol] 1.83 10*3/uL 0.83-4.51 [facility] Basophil percentageOrdered B y: Dr. Leo on 09-18-2022 Basophils/100 WBC (Bld) 0.3 % 0-1 [facility] Bilirubin [Mass/Vol] 1.20 mg/dL 0.20-1.00 [facility] Comment on above: For patients on eltr ombopag therapy, use of Dimension [place] TBIL is not recommended. Chloride [Moles/Vol] 108 mmol/L 98-107 [facility] Cholesterol [Mass/Vol] 114 mg/dL <200 [facility] Comment on above: <200 mg/dL Desirable 200-240 mg/dL Borderline >240 mg/dL High Risk Eosinophils/100 WBC (Bld) 2.0 % 0-5 [facility] Glucose [Mass/Vol] 87 mg/dL 74-106 [facility] Neutrophils (Bld) [#/Vol] 4.3 10*3/uL 2.0-7.7 [facility] Neutrophils/100 WBC (Bld) 60.9 % 47-70 [facility] Potassium [Moles/Vol] 3.5 mmol/L 3.5-5.1 [facility] Protein [Mass/Vol] 5.9 g/dL 6.4-8.2 [facility] Sodium [Moles/Vol] 142 mmol/L 136-145 [facility] Triglyceride [Mass/Vol] 174 mg/dL <199 [facility] Comment on above: The drugs N-Acetylcy steine and Metamizole may falsely depress this assay.Serum Triglycerides Reference Interval Normal <150 mg/dL Borderline high 150 - 199 mg/dL High 200 - 499 mg/dL Very High > or = 500 mg/dL WBC (Bld) [#/Vol] 7.0 10*3/uL 4.4-11.0 [facility] Blood erythrocytes count (nu mber/volume)Ordered By: Dr. Leo on 09-18-2022 RBC (Bld) [#/Vol] 4.64 10*6/uL 4.6-6.2 [facility] Blood hemoglobin measurement (mass/volume)Ordered By: Dr. Leo on 09-18-2022 Hemoglobin (Bld) [Mass/Vol] 13.2 g/dL 13.0-16.5 [facility] Blood lymphocytes/100 leukoc ytesOrdered By: Dr. Leo on 09-18-2022 Lymphocytes/100 WBC (Bld) 26.1 % 19-41 [facility] Blood monocytes/100 leukocyt esOrdered By: Dr. Leo on 09-18-2022 Monocytes/100 WBC (Bld) 10.4 % 0-10 [facility] Blood platelet mean volumeOr dered By: Dr. Leo on 09-18-2022 Platelet mean volume (Bld) [Entitic vol] 12.3 fL 6.2-12.0 [facility] Determination of erythrocyte mean corpuscular volume (MCV)Ordered By: Dr. Leo on 09-18-2022 MCV (RBC) [Entitic vol] 90.1 fL 80-94 [facility] Hematocrit Auto (Bld) [Volum e fraction]Ordered By: Dr. Leo on 09-18-2022 Hematocrit (Bld) [Volume fraction] 41.8 % 40-54 [facility] Laboratory - Chemistry and C hemistry - challengeOrdered By: Dr. Leo on 09-18-2022 ALP [Catalytic activity/Vol] 113 U/L 45-117 [facility] ALT [Catalytic activity/Vol] 31 U/L 16-61 [facility] CO2 [Moles/Vol] 26.0 mmol/L 21.0-32.0 [facility] Globulin (S) [Mass/Vol] 3.0 g/dL 2.2-4.2 [facility] Urea nitrogen/Creatinine [Mass ratio] 13.4 mg/mg 10-20 [facility] Laboratory - Hematology and Cell countsOrdered By: Dr. Leo on 09-18-2022 Erythrocyte distribution width (RBC) [Entitic vol] 46.9 fL 35.1-43.9 [facility] Erythrocyte distribution width (RBC) [Ratio] 14.4 % 11.6-14.6 [facility] Immature granulocytes/100 WBC (Bld) 0.300 % 0.0-0.9 [facility] Comment on above: IG% - Immature Granu locytes (promyelocytes, myelocytes and metamyelocytes) > 1% indicates that a LEFT SHIFT is Present. MCH (RBC) [Entitic mass] 28.4 pg 27.0-32.0 [facility] Nucleated RBC/100 WBC (Bld) [Ratio] 0 % 0-5 [facility] MCHC Auto (RBC) [Mass/Vol]Or dered By: Dr. Leo on 09-18-2022 MCHC (RBC) [Mass/Vol] 31.6 g/dL 32-36 [facility] No Panel InformationOrdered By: Dr. Leo on 09-18-2022 Estimated Creatinine Clearance Calc 47.13 ml/min [facility] Estimated GFR (MDRD) Amer 71 mL/min >60 [facility] Comment on above: GFR Calc Estimated GFR (MDRD) Non-Af Amer 58 mL/min >60 [facility] Comment on above: Non- GFR Calc Thyroid Stimulating Hormone (TSH) 3.64 uIU/mL 0.358-3.74 [facility] Troponin I High Sensitivity 8 pg/mL 3.0-78.0 [facility] Comment on above: Please Note: New [place] t Units and Gender Specific Reference Ranges. For more information see Policy Stat Procedure [place] High Sensitivity Troponin (TNIH) and attachments. Platelets bldOrdered By: Dr. Leo on 09-18-2022 Platelets (Bld) [#/Vol] 131 10*3/uL 150-450 [facility] Serum or plasma albumin francine urement (mass/volume)Ordered By: Dr. Leo on 09-18-2022 Albumin [Mass/Vol] 2.9 g/dL 3.2-5.0 [facility] Serum or plasma albumin/glob ulin mass ratioOrdered By: Dr. Leo on 09-18-2022 Albumin/Globulin [Mass ratio] 1.0 {ratio} 0.9-2.4 [facility] Serum or plasma calcium francine urement (mass/volume)Ordered By: Dr. Leo on 09-18-2022 Calcium [Mass/Vol] 7.6 mg/dL 8.5-10.1 [facility] Serum or plasma cholesterol in HDL measurement (mass/volume)Ordered By: Dr. Leo on 09-18-2022 Cholesterol in HDL [Mass/Vol] 36 mg/dL >40 [facility] Comment on above: The drugs N-Acetylcy steine and Metamizole may falsely depress this assay. Reference Range HDL <40 mg/dL Low HDL Cholesterol HDL >or= 60 mg/dL High HDL Cholesterol Serum or plasma cholesterol in VLDL measurement (mass/volume)Ordered By: Dr. Leo on 09-18-2022 Cholesterol in VLDL [Mass/Vol] 35 mg/dL 5-40 [facility] Serum or plasma creatinine m easurement (mass/volume)Ordered By: Dr. Leo on 09-18-2022 Creatinine [Mass/Vol] 1.27 mg/dL 0.70-1.30 [facility] Comment on above: The validity of the calculated GFR & GFRAA in patients over 70 years has not been determined. Clinical correlation is essential. Serum or plasma low density lipoprotein (LDL) cholesterol measurement (mass/volume)Ordered By: Dr. Leo on 09-18-2022 Cholesterol in LDL [Mass/Vol] 43 mg/dL 0-130 [facility] Serum or plasma urea nitroge n measurement (mass/volume)Ordered By: Dr. Leo on 09-18-2022 Urea nitrogen [Mass/Vol] 17 mg/dL 7-18 [facility] Thin prep Papanicolaou smear with manual screeningOrdered By: Dr. Leo on 09-18-2022 Thin prep Papanicolaou smear with manual screening 21 U/L 15-37 [facility] Thin prep Papanicolaou smear with manual screening 8 5-15 [facility] Whole blood hemoglobin A1c/t otal hemoglobin ratio (mass fraction)Ordered By: Dr. Leo on 09-18-2022 HbA1c (Bld) [Mass fraction] 7.7 % 3.8-5.6 [facility] Comment on above: Normal < 5.7 % Predi abetic 5.7 - 6.4 % Diabetic >or= 6.5 % Please note range changes. INR in Blood by Coagulation assayOrdered By: Dr. Hall on 09-17-2022 INR Coag (Bld) [Relative time] 0.9 {INR} [facility] Laboratory - Chemistry and C hemistry - challengeOrdered By: Dr. Leo on 09-17-2022 Magnesium [Mass/Vol] 2.3 mg/dL 1.6-2.6 [facility] Laboratory - CoagulationOrde red By: Dr. Hall on 09-17-2022 aPTT Coag (Bld) [Time] 32.1 s 24.1-36.2 [facility] Coag (PPP) [Time] 12.3 s 11.7-14.9 [facility] Basophil percentageOrdered B y: Dr. Hay on 09-01-2022 Bilirubin [Mass/Vol] 0.70 mg/dL 0.20-1.00 [facility] Comment on above: For patients on eltr ombopag therapy, use of Dimension [place] TBIL is not recommended. Chloride [Moles/Vol] 112 mmol/L 98-107 [facility] Glucose [Mass/Vol] 151 mg/dL 74-106 [facility] Comment on above: Fasting Glucose resu lt greater than or equal to 126 mg/dL suggests DIABETES MELLITUS per A.D.A. criteria. Potassium [Moles/Vol] 3.9 mmol/L 3.5-5.1 [facility] Protein [Mass/Vol] 5.7 g/dL 6.4-8.2 [facility] Sodium [Moles/Vol] 142 mmol/L 136-145 [facility] WBC (Bld) [#/Vol] 4.7 10*3/uL 4.4-11.0 [facility] Blood erythrocytes count (nu mber/volume)Ordered By: Dr. Hay on 09-01-2022 RBC (Bld) [#/Vol] 4.60 10*6/uL 4.6-6.2 [facility] Blood hemoglobin measurement (mass/volume)Ordered By: Dr. Hay on 09-01-2022 Hemoglobin (Bld) [Mass/Vol] 13.0 g/dL 13.0-16.5 [facility] Blood platelet mean volumeOr dered By: Dr. Hay on 09-01-2022 Platelet mean volume (Bld) [Entitic vol] 12.8 fL 6.2-12.0 [facility] Determination of erythrocyte mean corpuscular volume (MCV)Ordered By: Dr. Hay on 09-01-2022 MCV (RBC) [Entitic vol] 89.1 fL 80-94 [facility] Hematocrit Auto (Bld) [Volum e fraction]Ordered By: Dr. Hay on 09-01-2022 Hematocrit (Bld) [Volume fraction] 41.0 % 40-54 [facility] Laboratory - Chemistry and C hemistry - challengeOrdered By: Dr. Hay on 09-01-2022 ALP [Catalytic activity/Vol] 149 U/L 45-117 [facility] ALT [Catalytic activity/Vol] 35 U/L 16-61 [facility] CO2 [Moles/Vol] 27.0 mmol/L 21.0-32.0 [facility] Globulin (S) [Mass/Vol] 2.9 g/dL 2.2-4.2 [facility] Urea nitrogen/Creatinine [Mass ratio] 15.8 mg/mg 10-20 [facility] Laboratory - Hematology and Cell countsOrdered By: Dr. Hay on 09-01-2022 Erythrocyte distribution width (RBC) [Entitic vol] 44.1 fL 35.1-43.9 [facility] Erythrocyte distribution width (RBC) [Ratio] 13.5 % 11.6-14.6 [facility] MCH (RBC) [Entitic mass] 28.3 pg 27.0-32.0 [facility] MCHC Auto (RBC) [Mass/Vol]Or dered By: Dr. Hay on 09-01-2022 MCHC (RBC) [Mass/Vol] 31.7 g/dL 32-36 [facility] No Panel InformationOrdered By: Dr. Hay on 09-01-2022 Estimated Creatinine Clearance Calc 46.51 ml/min [facility] Estimated GFR (MDRD) Amer 67 mL/min >60 [facility] Comment on above: GFR Calc Estimated GFR (MDRD) Non-Af Amer 55 mL/min >60 [facility] Comment on above: Non- GFR Calc Platelets bldOrdered By: Dr. Hay on 09-01-2022 Platelets (Bld) [#/Vol] 106 10*3/uL 150-450 [facility] Serum or plasma albumin francine urement (mass/volume)Ordered By: Dr. Hay on 09-01-2022 Albumin [Mass/Vol] 2.8 g/dL 3.2-5.0 [facility] Serum or plasma albumin/glob ulin mass ratioOrdered By: Dr. Hay on 09-01-2022 Albumin/Globulin [Mass ratio] 1.0 {ratio} 0.9-2.4 [facility] Serum or plasma calcium francine urement (mass/volume)Ordered By: Dr. Hay on 09-01-2022 Calcium [Mass/Vol] 8.0 mg/dL 8.5-10.1 [facility] Serum or plasma creatinine m easurement (mass/volume)Ordered By: Dr. Hay on 09-01-2022 Creatinine [Mass/Vol] 1.33 mg/dL 0.70-1.30 [facility] Comment on above: The validity of the calculated GFR & GFRAA in patients over 70 years has not been determined. Clinical correlation is essential. Serum or plasma urea nitroge n measurement (mass/volume)Ordered By: Dr. Hay on 09-01-2022 Urea nitrogen [Mass/Vol] 21 mg/dL 7-18 [facility] Thin prep Papanicolaou smear with manual screeningOrdered By: Dr. Hay on 09-01-2022 Thin prep Papanicolaou smear with manual screening 21 U/L 15-37 [facility] Thin prep Papanicolaou smear with manual screening 3 5-15 [facility] No Panel InformationOrdered By: Dr. Hay on 08-31-2022 Activated Clotting Time 275 sec 74-137 [facility] Basophil percentageOrdered B y: Dr. Hay on 08-19-2022 Chloride [Moles/Vol] 108 mmol/L 98-107 [facility] Glucose [Mass/Vol] 158 mg/dL 74-106 [facility] Comment on above: Fasting Glucose resu lt greater than or equal to 126 mg/dL suggests DIABETES MELLITUS per A.D.A. criteria. Potassium [Moles/Vol] 4.3 mmol/L 3.5-5.1 [facility] Sodium [Moles/Vol] 137 mmol/L 136-145 [facility] WBC (Bld) [#/Vol] 8.2 10*3/uL 4.4-11.0 [facility] Blood erythrocytes count (nu mber/volume)Ordered By: Dr. Hay on 08-19-2022 RBC (Bld) [#/Vol] 5.05 10*6/uL 4.6-6.2 [facility] Blood hemoglobin measurement (mass/volume)Ordered By: Dr. Hay on 08-19-2022 Hemoglobin (Bld) [Mass/Vol] 14.3 g/dL 13.0-16.5 [facility] Blood platelet mean volumeOr dered By: Dr. Hay on 08-19-2022 Platelet mean volume (Bld) [Entitic vol] 12.5 fL 6.2-12.0 [facility] Determination of erythrocyte mean corpuscular volume (MCV)Ordered By: Dr. Hay on 08-19-2022 MCV (RBC) [Entitic vol] 88.3 fL 80-94 [facility] Hematocrit Auto (Bld) [Volum e fraction]Ordered By: Dr. Hay on 08-19-2022 Hematocrit (Bld) [Volume fraction] 44.6 % 40-54 [facility] INR in Blood by Coagulation assayOrdered By: Dr. Hay on 08-19-2022 INR Coag (Bld) [Relative time] 1.1 {INR} [facility] Laboratory - Chemistry and C hemistry - challengeOrdered By: Dr. Hay on 08-19-2022 CO2 [Moles/Vol] 25.0 mmol/L 21.0-32.0 [facility] Urea nitrogen/Creatinine [Mass ratio] 12.0 mg/mg 10-20 [facility] Laboratory - CoagulationOrde red By: Dr. Hay on 08-19-2022 aPTT Coag (Bld) [Time] 30.9 s 24.1-36.2 [facility] Coag (PPP) [Time] 13.4 s 11.7-14.9 [facility] Laboratory - Hematology and Cell countsOrdered By: Dr. Hay on 08-19-2022 Erythrocyte distribution width (RBC) [Entitic vol] 44.8 fL 35.1-43.9 [facility] Erythrocyte distribution width (RBC) [Ratio] 13.9 % 11.6-14.6 [facility] MCH (RBC) [Entitic mass] 28.3 pg 27.0-32.0 [facility] MCHC Auto (RBC) [Mass/Vol]Or dered By: Dr. Hay on 08-19-2022 MCHC (RBC) [Mass/Vol] 32.1 g/dL 32-36 [facility] No Panel InformationOrdered By: Dr. Hay on 08-19-2022 Estimated GFR (MDRD) Amer 72 mL/min >60 [facility] Comment on above: GFR Calc Estimated GFR (MDRD) Non-Af Amer 60 mL/min >60 [facility] Comment on above: Non- GFR Calc Platelets bldOrdered By: Dr. Hay on 08-19-2022 Platelets (Bld) [#/Vol] 151 10*3/uL 150-450 [facility] Serum or plasma calcium francine urement (mass/volume)Ordered By: Dr. Hay on 08-19-2022 Calcium [Mass/Vol] 9.0 mg/dL 8.5-10.1 [facility] Serum or plasma creatinine m easurement (mass/volume)Ordered By: Dr. Hay on 08-19-2022 Creatinine [Mass/Vol] 1.25 mg/dL 0.70-1.30 [facility] Comment on above: The validity of the calculated GFR & GFRAA in patients over 70 years has not been determined. Clinical correlation is essential. Serum or plasma urea nitroge n measurement (mass/volume)Ordered By: Dr. Hay on 08-19-2022 Urea nitrogen [Mass/Vol] 15 mg/dL 7-18 [facility] Thin prep Papanicolaou smear with manual screeningOrdered By: Dr. Hay on 08-19-2022 Thin prep Papanicolaou smear with manual screening 4 5-15 [facility] Basophil percentageOrdered B y: Dr. Rodriguez on 06-11-2022 Chloride [Moles/Vol] 102 mmol/L 98-107 [facility] Glucose [Mass/Vol] 274 mg/dL 74-106 [facility] Comment on above: Glucose result great er than or equal to 200 mg/dLsuggests DIABETES MELLITUS per A.D.A. criteria. Potassium [Moles/Vol] 4.3 mmol/L 3.5-5.1 [facility] Sodium [Moles/Vol] 136 mmol/L 136-145 [facility] Laboratory - Chemistry and C hemistry - challengeOrdered By: Dr. Rodriguez on 06-11-2022 CO2 [Moles/Vol] 24.0 mmol/L 21.0-32.0 [facility] Magnesium [Mass/Vol] 2.2 mg/dL 1.6-2.6 [facility] Urea nitrogen/Creatinine [Mass ratio] 15.7 mg/mg 10-20 [facility] No Panel InformationOrdered By: Dr. Rodriguez on 06-11-2022 Estimated GFR (MDRD) Amer 67 mL/min >60 [facility] Comment on above: GFR Calc Estimated GFR (MDRD) Non-Af Amer 55 mL/min >60 [facility] Comment on above: Non- GFR Calc Serum or plasma calcium francine urement (mass/volume)Ordered By: Dr. Rodriguez on 06-11-2022 Calcium [Mass/Vol] 8.7 mg/dL 8.5-10.1 [facility] Serum or plasma creatinine m easurement (mass/volume)Ordered By: Dr. Rodriguez on 06-11-2022 Creatinine [Mass/Vol] 1.34 mg/dL 0.70-1.30 [facility] Comment on above: The validity of the calculated GFR & GFRAA in patients over 70 years has not been determined. Clinical correlation is essential. Serum or plasma urea nitroge n measurement (mass/volume)Ordered By: Dr. Rodriguez on 06-11-2022 Urea nitrogen [Mass/Vol] 21 mg/dL 7-18 [facility] Thin prep Papanicolaou smear with manual screeningOrdered By: Dr. Rodriguez on 06-11-2022 Thin prep Papanicolaou smear with manual screening 10 5-15 [facility] Absolute lymphocyte countOrd ered By: Luz Elena Mckeon on 04-14-2022 Lymphocytes Auto (Unsp spec) [#/Vol] 1.60 10*3/uL 0.83-4.51 [facility] Basophil percentageOrdered B y: Luz Elena Mckeon on 04-14-2022 Basophils/100 WBC (Bld) 0.3 % 0-1 [facility] Chloride [Moles/Vol] 106 mmol/L 98-107 [facility] Eosinophils/100 WBC (Bld) 1.5 % 0-5 [facility] Glucose [Mass/Vol] 211 mg/dL 74-106 [facility] Comment on above: Glucose result great er than or equal to 200 mg/dLsuggests DIABETES MELLITUS per A.D.A. criteria. Neutrophils (Bld) [#/Vol] 3.8 10*3/uL 2.0-7.7 [facility] Neutrophils/100 WBC (Bld) 61.3 % 47-70 [facility] Potassium [Moles/Vol] 4.4 mmol/L 3.5-5.1 [facility] Sodium [Moles/Vol] 136 mmol/L 136-145 [facility] WBC (Bld) [#/Vol] 6.2 10*3/uL 4.4-11.0 [facility] Blood erythrocytes count (nu mber/volume)Ordered By: Luz Elena Mckeon on 04-14-2022 RBC (Bld) [#/Vol] 4.87 10*6/uL 4.6-6.2 [facility] Blood hemoglobin measurement (mass/volume)Ordered By: Luz Elena Mckeon on 04-14-2022 Hemoglobin (Bld) [Mass/Vol] 14.1 g/dL 13.0-16.5 [facility] Blood lymphocytes/100 leukoc ytesOrdered By: Luz Elena Mckeon on 04-14-2022 Lymphocytes/100 WBC (Bld) 25.8 % 19-41 [facility] Blood monocytes/100 leukocyt esOrdered By: Luz Elena Mckeon on 04-14-2022 Monocytes/100 WBC (Bld) 10.8 % 0-10 [facility] Blood platelet mean volumeOr dered By: Luz Elena Mckeon on 04-14-2022 Platelet mean volume (Bld) [Entitic vol] 12.8 fL 6.2-12.0 [facility] Determination of erythrocyte mean corpuscular volume (MCV)Ordered By: Luz Elena Mckeon on 04-14-2022 MCV (RBC) [Entitic vol] 88.1 fL 80-94 [facility] Hematocrit Auto (Bld) [Volum e fraction]Ordered By: Luz Elena Mckeon on 04-14-2022 Hematocrit (Bld) [Volume fraction] 42.9 % 40-54 [facility] Laboratory - Chemistry and C hemistry - challengeOrdered By: Luz Elena Mckeon on 04-14-2022 CO2 [Moles/Vol] 25.0 mmol/L 21.0-32.0 [facility] Natriuretic peptide B (Bld) [Mass/Vol] 54.2 pg/mL 0-100 [facility] Urea nitrogen/Creatinine [Mass ratio] 13.3 mg/mg 10-20 [facility] Laboratory - Hematology and Cell countsOrdered By: Luz Elena Mckeon on 04-14-2022 Erythrocyte distribution width (RBC) [Entitic vol] 44.7 fL 35.1-43.9 [facility] Erythrocyte distribution width (RBC) [Ratio] 13.9 % 11.6-14.6 [facility] Immature granulocytes/100 WBC (Bld) 0.300 % 0.0-0.9 [facility] Comment on above: IG% - Immature Granu locytes (promyelocytes, myelocytes and metamyelocytes) > 1% indicates that a LEFT SHIFT is Present. MCH (RBC) [Entitic mass] 29.0 pg 27.0-32.0 [facility] Nucleated RBC/100 WBC (Bld) [Ratio] 0 % 0-5 [facility] MCHC Auto (RBC) [Mass/Vol]Or dered By: Luz Elena Mckeon on 04-14-2022 MCHC (RBC) [Mass/Vol] 32.9 g/dL 32-36 [facility] No Panel InformationOrdered By: Luz Elena Mckeon on 04-14-2022 Estimated GFR (MDRD) Amer 81 mL/min >60 [facility] Comment on above: GFR Calc Estimated GFR (MDRD) Non-Af Amer 67 mL/min >60 [facility] Comment on above: Non- GFR Calc Platelets bldOrdered By: Loco Mckeon on 04-14-2022 Platelets (Bld) [#/Vol] 150 10*3/uL 150-450 [facility] Serum or plasma calcium francine urement (mass/volume)Ordered By: Luz Elena Mckeon on 04-14-2022 Calcium [Mass/Vol] 8.4 mg/dL 8.5-10.1 [facility] Serum or plasma creatinine m easurement (mass/volume)Ordered By: Luz Elena Mckeon on 04-14-2022 Creatinine [Mass/Vol] 1.13 mg/dL 0.70-1.30 [facility] Comment on above: The validity of the calculated GFR & GFRAA in patients over 70 years has not been determined. Clinical correlation is essential. Serum or plasma urea nitroge n measurement (mass/volume)Ordered By: Luz Elena cMkeon on 04-14-2022 Urea nitrogen [Mass/Vol] 15 mg/dL 7-18 [facility] Thin prep Papanicolaou smear with manual screeningOrdered By: Luz Elena Mckeon on 04-14-2022 Thin prep Papanicolaou smear with manual screening 5 5-15 [facility] Laboratory - Microbiology an d Antimicrobial susceptibilityon 03-27-2022 SARS-CoV-2 (COVID-19) RNA REAGAN+probe Ql (Unsp spec) Detected [facility] No Panel Informationon 03-27 Influenza Types A,B Rapid (Clinic) Not detected [facility] Absolute lymphocyte counton 11-21-2021 Lymphocytes Auto (Unsp spec) [#/Vol] 1.23 10*3/uL 0.83-4.51 [facility] Work Phone: Basophil percentageon 2021 Basophils/100 WBC (Bld) 0.3 % 0-1 [facility] Work Phone: Chloride [Moles/Vol] 106 mmol/L 98-107 [facility] Work Phone: Eosinophils/100 WBC (Bld) 1.2 % 0-5 [facility] Work Phone: Glucose [Mass/Vol] 166 mg/dL 74-106 [facility] Work Phone: Comment on above: Fasting Glucose resu lt greater than or equal to 126 mg/dL suggests DIABETES MELLITUS per A.D.A. criteria. Neutrophils (Bld) [#/Vol] 4.7 10*3/uL 2.0-7.7 [facility] Work Phone: [phone] Neutrophils/100 WBC (Bld) 69.8 % 47-70 [facility] Work Phone: Potassium [Moles/Vol] 4.2 mmol/L 3.5-5.1 [facility] Work Phone: [phone] Sodium [Moles/Vol] 140 mmol/L 136-145 [facility] Work Phone: WBC (Bld) [#/Vol] 6.7 10*3/uL 4.4-11.0 [facility] Work Phone: Blood erythrocytes count (nu mber/volume)on 11-21-2021 RBC (Bld) [#/Vol] 5.06 10*6/uL 4.6-6.2 [facility] Work Phone: Blood hemoglobin measurement (mass/volume)on 11-21-2021 Hemoglobin (Bld) [Mass/Vol] 14.3 g/dL 13.0-16.5 [facility] Work Phone: [phone] Blood lymphocytes/100 leukoc yteson 11-21-2021 Lymphocytes/100 WBC (Bld) 18.4 % 19-41 [facility] Work Phone: [phone] Blood monocytes/100 leukocyt eson 11-21-2021 Monocytes/100 WBC (Bld) 9.9 % 0-10 [facility] Work Phone: [phone] Blood platelet mean volumeon 11-21-2021 Platelet mean volume (Bld) [Entitic vol] 12.4 fL 6.2-12.0 [facility] Work Phone: [phone] Determination of erythrocyte mean corpuscular volume (MCV)on 11-21-2021 MCV (RBC) [Entitic vol] 89.1 fL 80-94 [facility] Work Phone: Hematocrit Auto (Bld) [Volum e fraction]on 11-21-2021 Hematocrit (Bld) [Volume fraction] 45.1 % 40-54 [facility] Work Phone: Laboratory - Chemistry and C hemistry - challengeon 11-21-2021 CO2 [Moles/Vol] 27.0 mmol/L 21.0-32.0 [facility] Work Phone: Natriuretic peptide B (Bld) [Mass/Vol] 60.9 pg/mL 0-100 [facility] Work Phone: Urea nitrogen/Creatinine [Mass ratio] 12.9 mg/mg 10-20 [facility] Work Phone: Laboratory - Hematology and Cell countson 11-21-2021 Erythrocyte distribution width (RBC) [Entitic vol] 45.1 fL 35.1-43.9 [facility] Work Phone: Erythrocyte distribution width (RBC) [Ratio] 14.0 % 11.6-14.6 [facility] Work Phone: Immature granulocytes/100 WBC (Bld) 0.400 % 0.0-0.9 [facility] Work Phone: Comment on above: IG% - Immature Granu locytes (promyelocytes, myelocytes and metamyelocytes) > 1% indicates that a LEFT SHIFT is Present. MCH (RBC) [Entitic mass] 28.3 pg 27.0-32.0 [facility] Work Phone: Nucleated RBC/100 WBC (Bld) [Ratio] 0 % 0-5 [facility] Work Phone: MCHC Auto (RBC) [Mass/Vol]on 11-21-2021 MCHC (RBC) [Mass/Vol] 31.7 g/dL 32-[address] [facility] Work Phone: No Panel Informationon 11-21 Estimated GFR (MDRD) Amer 63 mL/min >60 [facility] Work Phone: Comment on above: GFR Calc Estimated GFR (MDRD) Non-Af Amer 52 mL/min >60 [facility] Work Phone: Comment on above: Non- GFR Calc Platelets bldon 11-21-2021 Platelets (Bld) [#/Vol] 135 10*3/uL 150-450 [facility] Work Phone: Serum or plasma calcium francine urement (mass/volume)on 11-21-2021 Calcium [Mass/Vol] 8.9 mg/dL 8.5-10.1 [facility] Work Phone: Serum or plasma creatinine m easurement (mass/volume)on 11-21-2021 Creatinine [Mass/Vol] 1.40 mg/dL 0.70-1.30 [facility] Work Phone: Comment on above: The validity of the calculated GFR & GFRAA in patients over 70 years has not been determined. Clinical correlation is essential. Serum or plasma urea nitroge n measurement (mass/volume)on 11-21-2021 Urea nitrogen [Mass/Vol] 18 mg/dL 7-18 [facility] Work Phone: Thin prep Papanicolaou smear with manual screeningon 11-21-2021 Thin prep Papanicolaou smear with manual screening 7 5-15 [facility] Work Phone: Absolute lymphocyte counton 11-16-2021 Lymphocytes Auto (Unsp spec) [#/Vol] 2.06 10*3/uL 0.83-4.51 [facility] Work Phone: Basophil percentageon 2021 Basophils/100 WBC (Bld) 0.3 % 0-1 [facility] Work Phone: Chloride [Moles/Vol] 104 mmol/L 98-107 [facility] Work Phone: Eosinophils/100 WBC (Bld) 1.4 % 0-5 [facility] Work Phone: Glucose [Mass/Vol] 170 mg/dL 74-106 [facility] Work Phone: Comment on above: Fasting Glucose resu lt greater than or equal to 126 mg/dL suggests DIABETES MELLITUS per A.D.A. criteria. Neutrophils (Bld) [#/Vol] 5.0 10*3/uL 2.0-7.7 [facility] Work Phone: Neutrophils/100 WBC (Bld) 62.3 % 47-70 [facility] Work Phone: Potassium [Moles/Vol] 4.4 mmol/L 3.5-5.1 [facility] Work Phone: Comment on above: Slight Hemolysis, Re sult may be falsely increased. Sodium [Moles/Vol] 137 mmol/L 136-145 [facility] Work Phone: WBC (Bld) [#/Vol] 7.9 10*3/uL 4.4-11.0 [facility] Work Phone: Blood erythrocytes count (nu mber/volume)on 11-16-2021 RBC (Bld) [#/Vol] 5.42 10*6/uL 4.6-6.2 [facility] Work Phone: Blood hemoglobin measurement (mass/volume)on 11-16-2021 Hemoglobin (Bld) [Mass/Vol] 15.6 g/dL 13.0-16.5 [facility] Work Phone: Blood lymphocytes/100 leukoc yteson 11-16-2021 Lymphocytes/100 WBC (Bld) 26.0 % 19-41 [facility] Work Phone: Blood monocytes/100 leukocyt eson 11-16-2021 Monocytes/100 WBC (Bld) 9.6 % 0-10 [facility] Work Phone: Blood platelet mean volumeon 11-16-2021 Platelet mean volume (Bld) [Entitic vol] 12.9 fL 6.2-12.0 [facility] Work Phone: [phone] Determination of erythrocyte mean corpuscular volume (MCV)on 11-16-2021 MCV (RBC) [Entitic vol] 89.3 fL 80-94 [facility] Work Phone: Hematocrit Auto (Bld) [Volum e fraction]on 11-16-2021 Hematocrit (Bld) [Volume fraction] 48.4 % 40-54 [facility] Work Phone: Laboratory - Chemistry and C hemistry - challengeon 11-16-2021 CO2 [Moles/Vol] 27.0 mmol/L 21.0-32.0 [facility] Work Phone: Urea nitrogen/Creatinine [Mass ratio] 11.6 mg/mg 10-20 [facility] Work Phone: Laboratory - Hematology and Cell countson 11-16-2021 Erythrocyte distribution width (RBC) [Entitic vol] 44.5 fL 35.1-43.9 [facility] Work Phone: Erythrocyte distribution width (RBC) [Ratio] 13.8 % 11.6-14.6 [facility] Work Phone: Immature granulocytes/100 WBC (Bld) 0.400 % 0.0-0.9 [facility] Work Phone: Comment on above: IG% - Immature Granu locytes (promyelocytes, myelocytes and metamyelocytes) > 1% indicates that a LEFT SHIFT is Present. MCH (RBC) [Entitic mass] 28.8 pg 27.0-32.0 [facility] Work Phone: Nucleated RBC/100 WBC (Bld) [Ratio] 0 % 0-5 [facility] Work Phone: MCHC Auto (RBC) [Mass/Vol]on 11-16-2021 MCHC (RBC) [Mass/Vol] 32.2 g/dL 32-[address] [facility] Work Phone: No Panel Informationon 11-16 Troponin I High Sensitivity 7 pg/mL 3.0-78.0 [facility] Work Phone: Comment on above: Please Note: New [place]ana t Units and Gender Specific Reference Ranges. For more information see Policy Stat Procedure [place] High Sensitivity Troponin (TNIH) and attachments. Estimated Creatinine Clearance Calc 45.54 ml/min [facility] Work Phone: Estimated GFR (MDRD) Amer 64 mL/min >60 [facility] Work Phone: Comment on above: GFR Calc Estimated GFR (MDRD) Non-Af Amer 53 mL/min >60 [facility] Work Phone: Comment on above: Non- GFR Calc Platelets bldon 11-16-2021 Platelets (Bld) [#/Vol] 142 10*3/uL 150-450 [facility] Work Phone: Serum or plasma calcium francine urement (mass/volume)on 11-16-2021 Calcium [Mass/Vol] 9.2 mg/dL 8.5-10.1 [facility] Work Phone: Serum or plasma creatinine m easurement (mass/volume)on 11-16-2021 Creatinine [Mass/Vol] 1.38 mg/dL 0.70-1.30 [facility] Work Phone: Comment on above: The validity of the calculated GFR & GFRAA in patients over 70 years has not been determined. Clinical correlation is essential. Serum or plasma urea nitroge n measurement (mass/volume)on 11-16-2021 Urea nitrogen [Mass/Vol] 16 mg/dL 7-18 [facility] Work Phone: Thin prep Papanicolaou smear with manual screeningon 11-16-2021 Thin prep Papanicolaou smear with manual screening 6 5-15 [facility] Work Phone: Basophil percentageon 2021 Chloride [Moles/Vol] 105 mmol/L 98-107 [facility] Work Phone: Glucose [Mass/Vol] 246 mg/dL 74-106 [facility] Work Phone: Comment on above: Glucose result great er than or equal to 200 mg/dLsuggests DIABETES MELLITUS per A.D.A. criteria. Potassium [Moles/Vol] 4.2 mmol/L 3.5-5.1 [facility] Work Phone: Sodium [Moles/Vol] 137 mmol/L 136-145 [facility] Work Phone: Laboratory - Chemistry and C hemistry - challengeon 10-28-2021 CO2 [Moles/Vol] 24.0 mmol/L 21.0-32.0 [facility] Work Phone: Urea nitrogen/Creatinine [Mass ratio] 15.6 mg/mg 10-20 [facility] Work Phone: No Panel Informationon 10-28 Estimated GFR (MDRD) Amer 74 mL/min >60 [facility] Work Phone: Comment on above: GFR Calc Estimated GFR (MDRD) Non-Af Amer 61 mL/min >60 [facility] Work Phone: Comment on above: Non- GFR Calc Serum or plasma calcium francine urement (mass/volume)on 10-28-2021 Calcium [Mass/Vol] 8.9 mg/dL 8.5-10.1 [facility] Work Phone: Serum or plasma creatinine m easurement (mass/volume)on 10-28-2021 Creatinine [Mass/Vol] 1.22 mg/dL 0.70-1.30 [facility] Work Phone: Comment on above: The validity of the calculated GFR & GFRAA in patients over 70 years has not been determined. Clinical correlation is essential. Serum or plasma urea nitroge n measurement (mass/volume)on 10-28-2021 Urea nitrogen [Mass/Vol] 19 mg/dL 7-18 [facility] Work Phone: Thin prep Papanicolaou smear with manual screeningon 10-28-2021 Thin prep Papanicolaou smear with manual screening 8 5-15 [facility] Work Phone: Whole blood hemoglobin A1c/t otal hemoglobin ratio (mass fraction)on 10-28-2021 HbA1c (Bld) [Mass fraction] 7.7 % 3.8-5.6 [facility] Work Phone: Comment on above: Normal < 5.7 % Predi abetic 5.7 - 6.4 % Diabetic >or= 6.5 % Please note range changes. Absolute lymphocyte counton 09-16-2021 Lymphocytes Auto (Unsp spec) [#/Vol] 1.24 10*3/uL 0.83-4.51 [facility] Work Phone: Basophil percentageon 2021 Basophils/100 WBC (Bld) 0.5 % 0-1 [facility] Work Phone: [phone] Chloride [Moles/Vol] 107 mmol/L 98-107 [facility] Work Phone: Eosinophils/100 WBC (Bld) 1.7 % 0-5 [facility] Work Phone: Glucose [Mass/Vol] 134 mg/dL 74-106 [facility] Work Phone: Comment on above: Fasting Glucose resu lt greater than or equal to 126 mg/dL suggests DIABETES MELLITUS per A.D.A. criteria. Neutrophils (Bld) [#/Vol] 4.4 10*3/uL 2.0-7.7 [facility] Work Phone: Neutrophils/100 WBC (Bld) 68.0 % 47-70 [facility] Work Phone: Potassium [Moles/Vol] 4.3 mmol/L 3.5-5.1 [facility] Work Phone: Sodium [Moles/Vol] 139 mmol/L 136-145 [facility] Work Phone: WBC (Bld) [#/Vol] 6.4 10*3/uL 4.4-11.0 [facility] Work Phone: Blood erythrocytes count (nu mber/volume)on 09-16-2021 RBC (Bld) [#/Vol] 4.84 10*6/uL 4.6-6.2 [facility] Work Phone: Blood hemoglobin measurement (mass/volume)on 09-16-2021 Hemoglobin (Bld) [Mass/Vol] 14.1 g/dL 13.0-16.5 [facility] Work Phone: Blood lymphocytes/100 leukoc yteson 09-16-2021 Lymphocytes/100 WBC (Bld) 19.3 % 19-41 [facility] Work Phone: Blood monocytes/100 leukocyt eson 09-16-2021 Monocytes/100 WBC (Bld) 10.0 % 0-10 [facility] Work Phone: Blood platelet mean volumeon 09-16-2021 Platelet mean volume (Bld) [Entitic vol] 12.7 fL 6.2-12.0 [facility] Work Phone: Determination of erythrocyte mean corpuscular volume (MCV)on 09-16-2021 MCV (RBC) [Entitic vol] 90.1 fL 80-94 [facility] Work Phone: Hematocrit Auto (Bld) [Volum e fraction]on 09-16-2021 Hematocrit (Bld) [Volume fraction] 43.6 % 40-54 [facility] Work Phone: Laboratory - Chemistry and C hemistry - challengeon 09-16-2021 CO2 [Moles/Vol] 27.0 mmol/L 21.0-32.0 [facility] Work Phone: Natriuretic peptide B (Bld) [Mass/Vol] 80.9 pg/mL 0-100 [facility] Work Phone: Urea nitrogen/Creatinine [Mass ratio] 13.7 mg/mg 10-20 [facility] Work Phone: Laboratory - Hematology and Cell countson 09-16-2021 Erythrocyte distribution width (RBC) [Entitic vol] 46.2 fL 35.1-43.9 [facility] Work Phone: Erythrocyte distribution width (RBC) [Ratio] 13.9 % 11.6-14.6 [facility] Work Phone: Immature granulocytes/100 WBC (Bld) 0.500 % 0.0-0.9 [facility] Work Phone: Comment on above: IG% - Immature Granu locytes (promyelocytes, myelocytes and metamyelocytes) > 1% indicates that a LEFT SHIFT is Present. MCH (RBC) [Entitic mass] 29.1 pg 27.0-32.0 [facility] Work Phone: Nucleated RBC/100 WBC (Bld) [Ratio] 0 % 0-5 [facility] Work Phone: MCHC Auto (RBC) [Mass/Vol]on 09-16-2021 MCHC (RBC) [Mass/Vol] 32.3 g/dL 32-36 [facility] Work Phone: No Panel Informationon 09-16 Estimated GFR (MDRD) Amer 73 mL/min >60 [facility] Work Phone: Comment on above: GFR Calc Estimated GFR (MDRD) Non-Af Amer 60 mL/min >60 [facility] Work Phone: Comment on above: Non- GFR Calc Platelets bldon 09-16-2021 Platelets (Bld) [#/Vol] 133 10*3/uL 150-450 [facility] Work Phone: Serum or plasma calcium francine urement (mass/volume)on 09-16-2021 Calcium [Mass/Vol] 9.0 mg/dL 8.5-10.1 [facility] Work Phone: Serum or plasma creatinine m easurement (mass/volume)on 09-16-2021 Creatinine [Mass/Vol] 1.24 mg/dL 0.70-1.30 [facility] Work Phone: Comment on above: The validity of the calculated GFR & GFRAA in patients over 70 years has not been determined. Clinical correlation is essential. Serum or plasma urea nitroge n measurement (mass/volume)on 09-16-2021 Urea nitrogen [Mass/Vol] 17 mg/dL 7-18 [facility] Work Phone: Thin prep Papanicolaou smear with manual screeningon 09-16-2021 Thin prep Papanicolaou smear with manual screening 5 5-15 [facility] Work Phone: [phone] Absolute lymphocyte counton 06-10-2021 Lymphocytes Auto (Unsp spec) [#/Vol] 1.00 10*3/uL 0.83-4.51 [facility] Work Phone: Basophil percentageon 2021 Basophils/100 WBC (Bld) 0.3 % 0-1 [facility] Work Phone: Chloride [Moles/Vol] 107 mmol/L 98-107 [facility] Work Phone: Eosinophils/100 WBC (Bld) 1.7 % 0-5 [facility] Work Phone: Glucose [Mass/Vol] 150 mg/dL 74-106 [facility] Work Phone: Comment on above: Fasting Glucose resu lt greater than or equal to 126 mg/dL suggests DIABETES MELLITUS per A.D.A. criteria. Neutrophils (Bld) [#/Vol] 4.9 10*3/uL 2.0-7.7 [facility] Work Phone: Neutrophils/100 WBC (Bld) 73.8 % 47-70 [facility] Work Phone: [phone] Potassium [Moles/Vol] 5.6 mmol/L 3.5-5.1 [facility] Work Phone: Comment on above: Moderate Hemolysis, Result may be falsely increased. Sodium [Moles/Vol] 139 mmol/L 136-145 [facility] Work Phone: WBC (Bld) [#/Vol] 6.7 10*3/uL 4.4-11.0 [facility] Work Phone: [phone] Blood erythrocytes count (nu mber/volume)on 06-10-2021 RBC (Bld) [#/Vol] 5.17 10*6/uL 4.6-6.2 [facility] Work Phone: Blood hemoglobin measurement (mass/volume)on 06-10-2021 Hemoglobin (Bld) [Mass/Vol] 15.5 g/dL 13.0-16.5 [facility] Work Phone: Blood lymphocytes/100 leukoc yteson 06-10-2021 Lymphocytes/100 WBC (Bld) 15.0 % 19-41 [facility] Work Phone: Blood monocytes/100 leukocyt eson 06-10-2021 Monocytes/100 WBC (Bld) 8.7 % 0-10 [facility] Work Phone: Blood platelet mean volumeon 06-10-2021 Platelet mean volume (Bld) [Entitic vol] 12.7 fL 6.2-12.0 [facility] Work Phone: Determination of erythrocyte mean corpuscular volume (MCV)on 06-10-2021 MCV (RBC) [Entitic vol] 89.6 fL 80-94 [facility] Work Phone: Hematocrit Auto (Bld) [Volum e fraction]on 06-10-2021 Hematocrit (Bld) [Volume fraction] 46.3 % 40-54 [facility] Work Phone: Laboratory - Chemistry and C hemistry - challengeon 06-10-2021 CO2 [Moles/Vol] 28.0 mmol/L 21.0-32.0 [facility] Work Phone: Urea nitrogen/Creatinine [Mass ratio] 12.7 mg/mg 10-20 [facility] Work Phone: Laboratory - Hematology and Cell countson 06-10-2021 Erythrocyte distribution width (RBC) [Entitic vol] 45.9 fL 35.1-43.9 [facility] Work Phone: Erythrocyte distribution width (RBC) [Ratio] 14.1 % 11.6-14.6 [facility] Work Phone: Immature granulocytes/100 WBC (Bld) 0.500 % 0.0-0.9 [facility] Work Phone: Comment on above: IG% - Immature Granu locytes (promyelocytes, myelocytes and metamyelocytes) > 1% indicates that a LEFT SHIFT is Present. MCH (RBC) [Entitic mass] 30.0 pg 27.0-32.0 [facility] Work Phone: Nucleated RBC/100 WBC (Bld) [Ratio] 0 % 0-5 [facility] Work Phone: MCHC Auto (RBC) [Mass/Vol]on 06-10-2021 MCHC (RBC) [Mass/Vol] 33.5 g/dL 32-36 [facility] Work Phone: No Panel Informationon 06-10 Troponin I High Sensitivity 10 pg/mL 3.0-78.0 [facility] Work Phone: Comment on above: Please Note: New Jana t Units and Gender Specific Reference Ranges. For more information see Policy Stat Procedure [place] High Sensitivity Troponin (TNIH) and attachments. Estimated Creatinine Clearance Calc 47.63 ml/min [facility] Work Phone: Estimated GFR (MDRD) Amer 67 mL/min >60 [facility] Work Phone: Comment on above: GFR Calc Estimated GFR (MDRD) Non-Af Amer 55 mL/min >60 [facility] Work Phone: Comment on above: Non- GFR Calc Platelets bldon 06-10-2021 Platelets (Bld) [#/Vol] 146 10*3/uL 150-450 [facility] Work Phone: Serum or plasma calcium francine urement (mass/volume)on 06-10-2021 Calcium [Mass/Vol] 8.7 mg/dL 8.5-10.1 [facility] Work Phone: Serum or plasma creatinine m easurement (mass/volume)on 06-10-2021 Creatinine [Mass/Vol] 1.34 mg/dL 0.70-1.30 [facility] Work Phone: Comment on above: The validity of the calculated GFR & GFRAA in patients over 70 years has not been determined. Clinical correlation is essential. Serum or plasma urea nitroge n measurement (mass/volume)on 06-10-2021 Urea nitrogen [Mass/Vol] 17 mg/dL 7-18 [facility] Work Phone: Thin prep Papanicolaou smear with manual screeningon 06-10-2021 Thin prep Papanicolaou smear with manual screening 4 5-15 [facility] Work Phone: Absolute lymphocyte counton 05-19-2021 Lymphocytes Auto (Unsp spec) [#/Vol] 1.72 10*3/uL 0.83-4.51 [facility] Work Phone: Basophil percentageon 2021 Basophils/100 WBC (Bld) 0.4 % 0-1 [facility] Work Phone: Bilirubin [Mass/Vol] 1.20 mg/dL 0.20-1.00 [facility] Work Phone: Comment on above: For patients on eltr ombopag therapy, use of Dimension [place] TBIL is not recommended. Chloride [Moles/Vol] 106 mmol/L 98-107 [facility] Work Phone: Eosinophils/100 WBC (Bld) 1.2 % 0-5 [facility] Work Phone: [phone] Glucose [Mass/Vol] 182 mg/dL 74-106 [facility] Work Phone: Comment on above: Fasting Glucose resu lt greater than or equal to 126 mg/dL suggests DIABETES MELLITUS per A.D.A. criteria. Neutrophils (Bld) [#/Vol] 6.6 10*3/uL 2.0-7.7 [facility] Work Phone: Neutrophils/100 WBC (Bld) 70.5 % 47-70 [facility] Work Phone: [phone] Potassium [Moles/Vol] 3.8 mmol/L 3.5-5.1 [facility] Work Phone: Protein [Mass/Vol] 7.9 g/dL 6.4-8.2 [facility] Work Phone: Sodium [Moles/Vol] 139 mmol/L 136-145 [facility] Work Phone: WBC (Bld) [#/Vol] 9.4 10*3/uL 4.4-11.0 [facility] Work Phone: Basophil percentage 0 SEEN /hpf [facility] Work Phone: Bilirubin Test strip Ql (U)o n 05-19-2021 Bilirubin Ql (U) Negative Negative [facility] Work Phone: Blood erythrocytes count (nu mber/volume)on 05-19-2021 RBC (Bld) [#/Vol] 5.30 10*6/uL 4.6-6.2 [facility] Work Phone: Blood hemoglobin measurement (mass/volume)on 05-19-2021 Hemoglobin (Bld) [Mass/Vol] 15.3 g/dL 13.0-16.5 [facility] Work Phone: Blood lymphocytes/100 leukoc yteson 05-19-2021 Lymphocytes/100 WBC (Bld) 18.3 % 19-41 [facility] Work Phone: Blood monocytes/100 leukocyt eson 05-19-2021 Monocytes/100 WBC (Bld) 9.3 % 0-10 [facility] Work Phone: Blood platelet mean volumeon 05-19-2021 Platelet mean volume (Bld) [Entitic vol] 12.5 fL 6.2-12.0 [facility] Work Phone: Determination of erythrocyte mean corpuscular volume (MCV)on 05-19-2021 MCV (RBC) [Entitic vol] 89.8 fL 80-94 [facility] Work Phone: Hematocrit Auto (Bld) [Volum e fraction]on 05-19-2021 Hematocrit (Bld) [Volume fraction] 47.6 % 40-54 [facility] Work Phone: Ketones Test strip Ql (U)on 05-19-2021 Ketones Ql (U) Negative Negative [facility] Work Phone: Laboratory - Chemistry and C hemistry - challengeon 05-19-2021 ALP [Catalytic activity/Vol] 156 U/L 45-117 [facility] Work Phone: ALT [Catalytic activity/Vol] 44 U/L 16-61 [facility] Work Phone: CO2 [Moles/Vol] 26.0 mmol/L 21.0-32.0 [facility] Work Phone: Globulin (S) [Mass/Vol] 4.2 g/dL 2.2-4.2 [facility] Work Phone: Lipase [Catalytic activity/Vol] 199 U/L 73-393 [facility] Work Phone: Urea nitrogen/Creatinine [Mass ratio] 13.8 mg/mg 10-20 [facility] Work Phone: Laboratory - Hematology and Cell countson 05-19-2021 Erythrocyte distribution width (RBC) [Entitic vol] 46.7 fL 35.1-43.9 [facility] Work Phone: Erythrocyte distribution width (RBC) [Ratio] 14.3 % 11.6-14.6 [facility] Work Phone: Immature granulocytes/100 WBC (Bld) 0.300 % 0.0-0.9 [facility] Work Phone: Comment on above: IG% - Immature Granu locytes (promyelocytes, myelocytes and metamyelocytes) > 1% indicates that a LEFT SHIFT is Present. MCH (RBC) [Entitic mass] 28.9 pg 27.0-32.0 [facility] Work Phone: Nucleated RBC/100 WBC (Bld) [Ratio] 0 % 0-5 [facility] Work Phone: MCHC Auto (RBC) [Mass/Vol]on 05-19-2021 MCHC (RBC) [Mass/Vol] 32.1 g/dL 32-[address] [facility] Work Phone: Mucus LM Ql (Urine sed)on Mucus Ql (Urine sed) 0 SEEN /hpf [facility] Work Phone: Nitrite Test strip Ql (U)on 05-19-2021 Nitrite Ql (U) Negative Negative [facility] Work Phone: No Panel Informationon 05-19 Estimated Creatinine Clearance Calc 46.25 ml/min [facility] Work Phone: Estimated GFR (MDRD) Amer 65 mL/min >60 [facility] Work Phone: Comment on above: GFR Calc Estimated GFR (MDRD) Non-Af Amer 53 mL/min >60 [facility] Work Phone: Comment on above: Non- GFR Calc Platelets bldon 05-19-2021 Platelets (Bld) [#/Vol] 158 10*3/uL 150-450 [facility] Work Phone: Protein Test strip Ql (U)on 05-19-2021 Protein Ql (U) Negative Negative [facility] Work Phone: Serum or plasma albumin francine urement (mass/volume)on 05-19-2021 Albumin [Mass/Vol] 3.7 g/dL 3.2-5.0 [facility] Work Phone: Serum or plasma albumin/glob ulin mass ratioon 05-19-2021 Albumin/Globulin [Mass ratio] 0.9 {ratio} 0.9-2.4 [facility] Work Phone: Serum or plasma calcium francine urement (mass/volume)on 05-19-2021 Calcium [Mass/Vol] 9.2 mg/dL 8.5-10.1 [facility] Work Phone: Serum or plasma creatinine m easurement (mass/volume)on 05-19-2021 Creatinine [Mass/Vol] 1.38 mg/dL 0.70-1.30 [facility] Work Phone: Comment on above: The validity of the calculated GFR & GFRAA in patients over 70 years has not been determined. Clinical correlation is essential. Serum or plasma urea nitroge n measurement (mass/volume)on 05-19-2021 Urea nitrogen [Mass/Vol] 19 mg/dL 11-17 [facility] Work Phone: Squamous epithelial cells de tection in urine sediment by light microscopyon 05-19-2021 Epithelial cells.squamous LM Ql (Urine sed) 0 SEEN /hpf [facility] Work Phone: Thin prep Papanicolaou smear with manual screeningon 05-19-2021 Thin prep Papanicolaou smear with manual screening 25 U/L 15-37 [facility] Work Phone: Thin prep Papanicolaou smear with manual screening 7 5-15 [facility] Work Phone: Urine blood detectionon 05-03 RBC Ql (U) Negative Negative [facility] Work Phone: RBC Ql (U) 0 SEEN /hpf [facility] Work Phone: Urine clarityon 05-19-2021 Clarity (U) Clear Clear [facility] Work Phone: Urine color determinationon 05-19-2021 Color (U) Straw Yellow [facility] Work Phone: Urine glucose detectionon Glucose Ql (U) Normal mg/dl Normal [facility] Work Phone: Urine leukocyte esterase det ection by dipstickon 05-19-2021 Leukocyte esterase Test strip Ql (U) Negative Negative [facility] Work Phone: Urine pHon 05-19-2021 pH (U) 5.0 [pH] [facility] Work Phone: Urine sediment bacteria coun t by microscopy (number/high power field)on 05-19-2021 Bacteria LM.HPF (Urine sed) [#/Area] 0 /[HPF] None Seen [facility] Work Phone: Urine specific gravity measu rementon 05-19-2021 Specific gravity (U) [Rel density] 1.010 [facility] Work Phone: Urobilinogen Auto test strip Ql (U)on 05-19-2021 Urobilinogen Ql (U) Normal mg/dl Normal [facility] Work Phone: CT ANGIOGRAM AORTA CHEST [...] descending thoracic aorta is tortuous within its [id number] course but is not aneurysmal. The abdominal [...] at L4-L5 and L5-S1. IMAGING FACILITY: [facility]. SB/tde Workstation ID: [id number] Dictated by: YAS IYER on WedFeb 26, 2021 1:26:53 PM EDT Transcribed by: KEIKO CORLEY on WedFeb 26, 2021 1:43:47 PM EDT Finalized by: YAS IYER on Christine Feb 27, 2021 7:40:59 AM EDT [facility] Comment on above: Order Comment: Injur y/Trauma or Illness?:Illness/Other How long have you had these symptoms (acute/chronic)?:Acute Reason for exam?:Coronary artery disease involving [place] coronary artery 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, recent heart cath Type of Exam?:Subsequent/Follow-up Additional signs and symptoms?: LEFT HEART CATH POSSIBLE PTC A/STENTon 01-10-2021 LEFT HEART CATH POSSIBLE PTCA/STENT Patient Name: ERIBERTO RICO Date of : 1945 Procedure Date: 01/10/2021 Cath #: [id number] Physician(s): Eladio Ingram MD Ref. Physician: PROCEDURE(S) PERFORMED: Clinical History: Prior smoker, quit date: Diabetes Mellitus: Yes Hypertension: Yes Dyslipidemia: Yes Prior MO: Yes Other: Stroke Prior PCI: Yes 2016 [...] right femoral artery - 6F. 10 cm [place] Catheters were advanced using standard guide wire [...] Equipment: Sheath(s) [employer] 4F MICROPUNCTURE KIT Dodonation 6F 10CM [place] SHEATH Wire(s) [employer] J WIRE FIXED MERIT .035 X 150CM GUIDEWIRE Catheter(s) [employer] JR4 DIAG CATH 6F [employer] JR[employer] DIAG CATH 6F [employer] PIGTAIL STRAIGHT DIAG CATH 6F See Nursing Notes for further details Signed By Eladio Ingram MD On 01/10/2021 11:05:05 Eladio Ingram MD _ _ [facility] ECHOCARDIOGRAM 2D COMPLETEOr dered By: Eladio Ingram on 10-15-2020 Aortic valve area 2.93462 cm [facility] AV mean gradient 6 mmHg [facility] EF 62.7797 % [facility] Patient Info Name: Morro RICO Age: 75 years : 1945 Gender: Male Ht: 175 cm Wt: 106 kg BSA: 2.31 m2 HR: 50 bpm BP: 134 / 72 mmHg Heart Rhythm: Bradycardia, Sinus Rhythm Technical Quality: Fair, Technically difficult Exam Date: 10/15/2020 12:57 PM Patient Status: Outpatient Agitator Operator: Tracy Bonilla, RDCS, RVT Exam Type: ECHOCARDIOGRAM COMPLETE W CONTRAST Study Info Indications - Dyspnea Attending Physician: ELADIO INGRAM Referring Physician: ELADIO INGRAM ; [id number] BMI: 34.56 kg/m2 Summary 1. Left ventricular systolic function is normal, with ejection fraction estimated at 60 +/- 5%. 2. The left ventricular diastolic function is normal. 3. 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 4. There is no aortic valve stenosis. History/Risk Factors Hypertension: Yes Dyslipidemia: Yes Diabetic Therapy: Oral Peripheral Arterial Disease (PAD): Yes Myocardial Infarction (MO): Yes Coronary Artery Disease (CAD) Yes Congestive Heart Failure (CHF): Hx CHF Date of Prior MO: 05/03/2008 Diabetes Mellitus: Yes History/Risk Factors sleep [...] Velocity 1.09 m/s (more content not included)... [facility] Interface, Rad In He [employer] - 10/15/2020 4:30 PM EDT Patient Info Name: ERIBERTO RICO Age: 75 years : 1945 Gender: Male Ht: 175 cm Wt: 106 kg BSA: 2.31 m2 HR: 50 bpm BP: 134 / 72 mmHg Heart Rhythm: Bradycardia, Sinus Rhythm Technical Quality: Fair, Technically difficult Exam Date: 10/15/2020 12:57 PM Patient Status: Outpatient Agitator Operator: Tracy Bonilla, DRU, RVT Exam Type: ECHOCARDIOGRAM COMPLETE W CONTRAST Study Info Indications - Dyspnea Attending Physician: ELADIO INGRAM Referring Physician: ELADIO INGRAM ; [id number] BMI: 34.56 kg/m2 Summary 1. Left ventricular systolic function is normal, with ejection fraction estimated at 60 +/- 5%. 2. The left ventricular diastolic function is normal. 3. 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 4. There is no aortic valve stenosis. History/Risk Factors Hypertension: Yes Dyslipidemia: Yes Diabetic Therapy: Oral Peripheral Arterial Disease (PAD): Yes Myocardial Infarction (MO): Yes Coronary Artery Disease (CAD) Yes Congestive Heart Failure (CHF): Hx CHF Date of Prior MO: 05/03/2008 Diabetes Mellitus: Yes History/Risk Factors sleep [...] mmHg MV VTI 46 cm MV Decel [place] 333 cm/s2 MV PHT 38 ms MV Area (PHT) 5.8 cm2 4.0-5.0 MV Area (Cont Eq VTI) 2.5 cm2 MV Area Index (Cont Eq VTI) 1.06 cm2/m2 MV Di (more content not included)... [facility] ECHOCARDIOGRAM COMPLETE W CO NTRASTon 10-15-2020 ECHOCARDIOGRAM COMPLETE W CONTRAST Patient Info Name: ERIBERTO RICO Age: 75 years : 1945 Gender: Male Ht: 175 cm Wt: 106 kg BSA: 2.31 m2 HR: 50 bpm BP: 134 / 72 mmHg Heart Rhythm: Bradycardia, Sinus Rhythm Technical Quality: Fair, Technically difficult Exam Date: 10/15/2020 12:57 PM Patient Status: Outpatient Agitator Operator: Tracy Bonilla RDCS, T Exam Type: ECHOCARDIOGRAM COMPLETE W CONTRAST Study Info Indications - Dyspnea Attending Physician: ELADIO INGRAM Referring Physician: ELADIO INGRAM ; [id number] BMI: 34.56 kg/m2 Summary 1. Left ventricular systolic function is normal, with ejection fraction estimated at 60 +/- 5%. 2. The left ventricular diastolic function is normal. 3. 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 4. There is no aortic valve stenosis. History/Risk Factors Hypertension: Yes Dyslipidemia: Yes Diabetic Therapy: Oral Peripheral Arterial Disease (PAD): Yes Myocardial Infarction (MO): Yes Coronary Artery Disease (CAD) Yes Congestive Heart Failure (CHF): Hx CHF Date of Prior MO: 05/03/2008 Diabetes Mellitus: Yes History/Risk Factors sleep [...] mmHg MV VTI 46 cm MV Decel [place] 333 cm/s2 MV PHT 38 ms MV Area (PHT) 5.8 cm2 4.0-5.0 MV Area (Cont Eq VTI) 2.5 cm2 MV Area Index (Cont Eq VTI) 1.06 cm2/m2 MV Diastolic Function MV E Peak Velocity 1 m/s MV A Peak Velocity 1 m/s MV E/A 1.2 MV (more content not included)... Normal [facility] Ambulatory ECG 12-LEADOrdered By: Fernanda Acuña on 10-09-2020 Atrial Rate [facility] P [facility] P-R Interval [facility] Q-T Interval [facility] Q-T Interval (corrected) [facility] QRS Duration [facility] QTC Calculation (Bezet) [facility] R [facility] T [facility] Ventricular [facility] Auto Diffon 09-15-2018 Basophils #/vol (Bld) 0.0 E3/mcL Normal 0.0-0.2 [facility] Comment on above: Order Comment: Order Added by Discern Expert. Performed By: #### 2 [id number] #### [employer] [address] [place] [address] 37366 Basophils/100 WBC (Bld) 0.6 % Normal 0.0-2.0 [facility] Comment on above: Order Comment: Order Added by Discern Expert. Performed By: #### 2 [id number] #### [employer] [address] [place] [address] 97275 Eos Absolute 0.1 E3/mcL Normal 0.0-0.7 [facility] Comment on above: Order Comment: Order Added by Discern Expert. Performed By: #### 2 [id number] #### [employer] [address] [place] [address] 51400 Eosinophils/100 WBC (Bld) 2.2 % Normal 0.0-11.0 [facility] Comment on above: Order Comment: Order Added by Discern Expert. Performed By: #### 2 [id number] #### [employer] [address] [place] [address] 18777 Lymphocytes #/vol (Bld) 1.9 E3/mcL Normal 1.2-3.4 [facility] Comment on above: Order Comment: Order Added by Discern Expert. Performed By: #### 2 [id number] #### [employer] [address] [place] [address] 89378 Lymphocytes/100 WBC (Bld) 31.0 % Normal 20.0-55.0 [facility] Comment on above: Order Comment: Order Added by Discern Expert. Performed By: #### 2 [id number] #### [employer] [address] [place] [address] 98387 [place] Absolute 0.8 E3/mcL High 0.0-0.7 [facility] Comment on above: Order Comment: Order Added by Discern Expert. Performed By: #### 2 757695 #### [employer] [address] [place] [address] 95910 Monocytes/100 WBC (Bld) 13.2 % High 0.0-10.0 [facility] Comment on above: Order Comment: Order Added by Discern Expert. Performed By: #### 2 [id number] #### [employer] [address] [place] [address] 09017 Neutro Absolute 3.3 E3/mcL Normal 1.4-6.5 [facility] Comment on above: Order Comment: Order Added by Discern Expert. Performed By: #### 2 612502 #### [employer] [address] [place], [place] [address] Neutro Auto 53.0 % Normal 37.0-75.0 [facility] Comment on above: Order Comment: Order Added by Discern Expert. Performed By: #### 2 [id number] #### [employer] [address] [place], [place] [address] BMPon 09-15-2018 Anion gap molar conc 10 mmol/L Normal 10-20 [facility] Comment on above: Performed By: #### 2 749065 #### [employer] [facility] [place] [address] Calcium mass conc 8.4 mg/dL Low 8.6-10.3 [facility] Comment on above: Performed By: #### 2 973564 #### [employer] [address] [place] [id number] Chloride molar conc 105 mmol/L Normal 98-107 [facility] Comment on above: Performed By: #### 2 817432 #### [employer] [address] [place] [address] CO2 molar conc 26.0 mmol/L Normal 21.0-32.0 [facility] Comment on above: Performed By: #### 2 398977 #### [employer] [address] [place] [address] Creatinine mass conc 1.1 mg/dL Normal 0.5-1.3 [facility] Comment on above: Performed By: #### 2 814018 #### [employer] [address] [place] [address] Glucose mass conc 136 mg/dL High 70-99 [facility] Comment on above: Performed By: #### 2 278139 #### [employer] [address] [place] [address] Potassium molar conc 4.1 mmol/L Normal 3.5-5.3 [facility] Comment on above: Performed By: #### 2 867543 #### [employer] [address] [place] [address] Sodium molar conc 137 mmol/L Normal 136-145 [facility] Comment on above: Performed By: #### 2 724848 #### [employer] [facility] [place] [address] Urea nitrogen mass conc 19 mg/dL Normal 6-23 [facility] Comment on above: Performed By: #### 2 037883 #### [employer] [facility] [place] [id number] Urea nitrogen/Creatinine mass ratio 17.3 ratio Normal 5.4-30.0 [facility] Comment on above: Performed By: #### 2 557106 #### [employer] [address] [place], [place] [address] CBC w/ Auto Diffon Erythrocyte distribution width Ratio (RBC) 14.9 % High 11.5-14.5 [facility] Comment on above: Performed By: #### 2 700887 #### [employer] [address] [place] [address] Hematocrit Volume Fraction (Bld) 41.5 % Low 42.0-52.0 [facility] Comment on above: Performed By: #### 2 539396 #### [employer] [address] [place], [place] [address] Hemoglobin mass conc (Bld) 13.6 g/dL Normal 13.5-18.0 [facility] Comment on above: Performed By: #### 2 716634 #### [employer] [address] [place] [address] 20056 MCH Entitic mass (RBC) 29.6 pg Normal 27.0-31.0 [facility] Comment on above: Performed By: #### 2 536803 #### [employer] [address] [place] [address] 22458 MCHC mass conc (RBC) 32.8 g/dL Low 33.0-37.0 [facility] Comment on above: Performed By: #### 2 [id number] #### [employer] [address] [place], [place] [address] MCV Entitic volume (RBC) 90.4 fL Normal 78.0-100.0 [facility] Comment on above: Performed By: #### 2 312625 #### [employer] [address] [place], [place] [address] Platelet mean volume Entitic volume (Bld) 10.8 fL Normal 7.4-11.0 [facility] Comment on above: Performed By: #### 2 771698 #### [employer] [address] [place] [address] Platelets #/vol (Bld) 137 E3/mcL Normal 130-400 [facility] Comment on above: Performed By: #### 2 770270 #### [employer] [address] [place] [address] RBC #/vol (Bld) 4.59 E6/mcL Normal 3.90-6.10 [facility] Comment on above: Performed By: #### 2 870641 #### [employer] [address] [place] [address] WBC #/vol (Bld) 6.2 E3/mcL Normal 3.6-11.0 [facility] Comment on above: Performed By: #### 2 596038 #### [employer] [address] [place] [address] Glucose POCon 09-15-2018 Glucose mass conc 163 mg/dL High 70-99 [facility] Comment on above: Performed By: #### 2 407266 #### [employer] [address] [place] [address] Glucose mass conc 99 mg/dL Normal 70-99 [facility] Comment on above: Performed By: #### 2 079138 #### [employer] [address] [place] [address] Troponin-Ion 09-15-2018 Troponin I.cardiac mass conc 0.01 ng/mL Normal 0.00-0.03 [facility] Comment on above: Performed By: #### 2 089632 #### [employer] [address] [place], [place] [address] eGFRon 09-15-2018 GFR/1.73 sq M predicted among non-blacks MDRD vol rate/area (S/P/Bld) mL/min/{1.73_m2} Normal [facility] Comment on above: Order Comment: Order added by Discern Expert. Performed By: #### 2 762651 #### [employer] [address] [place] [address] Auto Diffon 09-14-2018 Basophils #/vol (Bld) 0.0 E3/mcL Normal 0.0-0.2 [facility] Comment on above: Order Comment: Order Added by Discern Expert. Performed By: #### 2 069728 #### [employer] [address] [place] [address] Basophils/100 WBC (Bld) 0.6 % Normal 0.0-2.0 [facility] Comment on above: Order Comment: Order Added by Kiana Expert. Performed By: #### 2 867928 #### [employer] [address] [place] [address] Eos Absolute 0.1 E3/mcL Normal 0.0-0.7 [facility] Comment on above: Order Comment: Order Added by Kiana Expert. Performed By: #### 2 022621 #### [employer] [address] [place] [address] Eosinophils/100 WBC (Bld) 1.7 % Normal 0.0-11.0 [facility] Comment on above: Order Comment: Order Added by Kiana Expert. Performed By: #### 2 096967 #### [employer] [address] [place] [address] Lymphocytes #/vol (Bld) 1.2 E3/mcL Normal 1.2-3.4 [facility] Comment on above: Order Comment: Order Added by Discern Expert. Performed By: #### 2 703751 #### [employer] [address] [place] [address] Lymphocytes/100 WBC (Bld) 16.5 % Low 20.0-55.0 [facility] Comment on above: Order Comment: Order Added by Kiana Expert. Performed By: #### 2 751718 #### [employer] [address] [place] [address] [place] Absolute 0.8 E3/mcL High 0.0-0.7 [facility] Comment on above: Order Comment: Order Added by Discern Expert. Performed By: #### 2 825141 #### [employer] [address] [place] [id number] Monocytes/100 WBC (Bld) 11.1 % High 0.0-10.0 [facility] Comment on above: Order Comment: Order Added by Discern Expert. Performed By: #### 2 041233 #### [employer] [address] [place], [place] [address] Neutro Absolute 5.1 E3/mcL Normal 1.4-6.5 [facility] Comment on above: Order Comment: Order Added by Discern Expert. Performed By: #### 2 811805 #### [employer] [address] [place] [address] Neutro Auto 70.1 % Normal 37.0-75.0 [facility] Comment on above: Order Comment: Order Added by Discern Expert. Performed By: #### 2 682220 #### [employer] [address] [place] [address] BMPon 09-14-2018 Anion gap molar conc 13 mmol/L Normal 10-20 [facility] Comment on above: Performed By: #### 2 [id number] #### [facility] [employer] [address] [place] [address] Calcium mass conc 9.2 mg/dL Normal 8.6-10.3 [facility] Comment on above: Performed By: #### 2 594935 #### [facility] [employer] [address] [place] [address] 88478 Chloride molar conc 105 mmol/L Normal 98-107 [facility] Comment on above: Performed By: #### 2 465577 #### [facility] [employer] [address] [place] [address] 72872 CO2 molar conc 24.0 mmol/L Normal 21.0-32.0 [facility] Comment on above: Performed By: #### 2 795857 #### [facility] [employer] [address] [place] [address] Creatinine mass conc 1.2 mg/dL Normal 0.5-1.3 [facility] Comment on above: Performed By: #### 2 613340 #### [employer] [address] [place] [address] Glucose mass conc 129 mg/dL High 70-99 [facility] Comment on above: Performed By: #### 2 936717 #### [employer] [address] [place] [address] 21608 Potassium molar conc 3.9 mmol/L Normal 3.5-5.3 [facility] Comment on above: Performed By: #### 2 520194 #### [employer] [address] [place] [address] 69035 Sodium molar conc 138 mmol/L Normal 136-145 [facility] Comment on above: Performed By: #### 2 675101 #### [employer] [address] [place] [address] 64278 Urea nitrogen mass conc 19 mg/dL Normal 6-23 [facility] Comment on above: Performed By: #### 2 635005 #### [facility] [employer] [address] [place], [place] [address] Urea nitrogen/Creatinine mass ratio 15.8 ratio Normal 5.4-30.0 [facility] Comment on above: Performed By: #### 2 610801 #### [facility] [employer] [address] [place] [address] 86006 CBC w/ Auto Diffon 9 Erythrocyte distribution width Ratio (RBC) 15.2 % High 11.5-14.5 [facility] Comment on above: Performed By: #### 2 [id number] #### [employer] [address] [place] [address] 77754 Hematocrit Volume Fraction (Bld) 45.0 % Normal 42.0-52.0 [facility] Comment on above: Performed By: #### 2 649403 #### [employer] [address] [place] [address] 56893 Hemoglobin mass conc (Bld) 15.0 g/dL Normal 13.5-18.0 [facility] Comment on above: Performed By: #### 2 929636 #### [employer] [address] [place] [address] 54382 MCH Entitic mass (RBC) 29.8 pg Normal 27.0-31.0 [facility] Comment on above: Performed By: #### 2 912317 #### [employer] [address] [place] [address] MCHC mass conc (RBC) 33.4 g/dL Normal 33.0-37.0 [facility] Comment on above: Performed By: #### 2 577748 #### [employer] [address] [place] [address] MCV Entitic volume (RBC) 89.4 fL Normal 78.0-100.0 [facility] Comment on above: Performed By: #### 2 681806 #### [employer] [address] [place] [address] Platelet mean volume Entitic volume (Bld) 10.8 fL Normal 7.4-11.0 [facility] Comment on above: Performed By: #### 2 574202 #### [employer] [address] [place] [address] Platelets #/vol (Bld) 158 E3/mcL Normal 130-400 [facility] Comment on above: Performed By: #### 2 996628 #### [employer] [address] [place] [address] RBC #/vol (Bld) 5.04 E6/mcL Normal 3.90-6.10 [facility] Comment on above: Performed By: #### 2 638230 #### [employer] [address] [place] [address] WBC #/vol (Bld) 7.2 E3/mcL Normal 3.6-11.0 [facility] Comment on above: Performed By: #### 2 404002 #### [employer] [address] [place] [address] CT Head or Brain w/o Contras ton 09-14-2018 CT Head or Brain w/o Contrast Exam Date/Time: 09/14/2018 15:21 EDT Reason for Exam: Injury Report STUDY: CT Head or Brain w/o Contrast; 09/14/2018 3:21 pm INDICATION: Injury. COMPARISON: 11/28/2016 ACCESSION NUMBER(S): [id number] ORDERING CLINICIAN: Kirsty Nguyen TECHNIQUE: Volume acquisition [...] pm INDICATION: Trauma. COMPARISON: None. ACCESSION NUMBER(S): [id number] ORDERING CLINICIAN: Kirsty Nguyen TECHNIQUE: Axial CT [...] Juanis PALOMO, Radha Salvador Technologist: IZAIAH Normal [facility] Glucose POCon 09-14-2018 Glucose mass conc 132 mg/dL High 70-99 [facility] Comment on above: Performed By: #### 2 [id number] #### [employer] [address] [place] [address] [id number] 09-14-2018 Hemoglobin A1c/Hemoglobin.total mass fraction (Bld) 6.9 % High 4.0-6.3 [facility] Comment on above: Performed By: #### 2 584156 #### [employer] [address] [place] [address] Magnesiumon 09-14-2018 Magnesium mass conc 2.0 Int._Unit/L Normal 1.6-2.4 [facility] Comment on above: Performed By: #### 2 394091 #### [employer] [facility] [place] [id number] PTon 09-14-2018 INR Coag RelTime (PPP) 1.0 {INR} Normal 0.9-1.1 [facility] Comment on above: Result Comment: INR Recommended Therapeutic ranges: Prophylaxis/treatment of DVT and PE..........2.0-3.0 Prevention of systemic embolism.................2.0-3.0 Mechanical prosthetic values........................2.5-3.5 CRITICAL VALUE.........................................> 4.0 NOTE: New methodology started 05/16/2018 Performed By: #### 2 [id number] #### [employer] [facility] [place] [address] Prothrombin time (PT) Coag time (PPP) 11.8 second(s) Normal 9.7-12.7 [facility] Comment on above: Result Comment: NOTE : New reference range established on 05/16/2018 due to change in methodology. Performed By: #### 2 [id number] #### [employer] [facility] [facility] [place] [address] PTTon 09-14-2018 aPTT Coag time (Bld) 32 second(s) Normal 28-38 [facility] Comment on above: Result Comment: NOTE :New reference range established 05/16/2018 due to change in methodology. Performed By: #### 2 597690 #### [employer] [facility] [facility] [place] [address] TSHon 09-14-2018 Thyrotropin Qn 5.25 mcIU/mL Normal 0.30-5.60 [facility] Comment on above: Performed By: #### 2 402845 #### [employer] [address] [place] [address] Troponin-Ion 09-14-2018 Troponin I.cardiac mass conc 0.02 ng/mL Normal 0.00-0.03 [facility] Comment on above: Performed By: #### 2 370829 #### [employer] [address] [place] [address] UA Completeon 09-14-2018 Color Nom (U) Straw Normal Yellow [facility] Comment on above: Performed By: #### 2 614508 #### [employer] [address] [place] [address] Glucose mass conc (U) Negative Normal Negative [facility] Comment on above: Performed By: #### 2 577176 #### [employer] [facility] [place] [address] Ketones Ql (U) Negative Normal Negative [facility] Comment on above: Performed By: #### 2 470962 #### [employer] [facility] [facility] [place] [address] UA Blood Negative Normal Negative [facility] Comment on above: Performed By: #### 2 575461 #### [employer] [facility] [facility] [place] [address] UA Clarity Clear Normal Clear [facility] Comment on above: Performed By: #### 2 889270 #### [employer] [facility] [place] [address] UA Hyal Cast 3-5 Abnormal 0-2 [facility] Comment on above: Performed By: #### 2 838637 #### [employer] [address] [place] [address] UA Leuk Est Negative Normal Negative [facility] Comment on above: Performed By: #### 2 264142 #### [employer] [address] [place] [address] UA Mucous Trace Abnormal Trace [facility] Comment on above: Performed By: #### 2 594666 #### [employer] [address] [place] [id number] UA Nitrite Negative Normal Negative [facility] Comment on above: Performed By: #### 2 447450 #### [employer] [address] [place] [address] UA pH 5.0 Normal 4.6-8.0 [facility] Comment on above: Performed By: #### 2 140730 #### [employer] [facility] [address] [place] [id number] UA Protein Negative Normal Negative [facility] Comment on above: Performed By: #### 2 889621 #### [employer] [facility] [address] [place] [address] UA Spec Grav 1.009 Normal 1.003-1.03 0 [facility] Comment on above: Performed By: #### 2 274312 #### [employer] [facility] [address] [place] [id number] UA Urobilinogen Negative Normal [facility] Comment on above: Result Comment: Due to a manufacturing issue, low positive urobilinogen results may be fasely positive. Correlate with urine bilirubin and additional clinical/laboratory findings to assess the risk of hemolytic anemia or liver disease. If clinically indicated, repeat testing with an alternate method is available by contacting the laboratory within 24 hours. Performed By: #### 2 [id number] #### [employer] [facility] [place] [address] Urobilinogen Qn (U) Negative Normal Negative [facility] Comment on above: Performed By: #### 2 [id number] #### [employer] [facility] [place] [id number] XR Chest AP Portableon 09-14 XR Chest AP Portable Exam Date/Time: 09/14/2018 15:43 EDT Reason for Exam: Chest pain Report STUDY: XR Chest AP Portable; 09/14/2018 3:43 pm INDICATION: Chest pain. COMPARISON: 12/25/2016 ACCESSION NUMBER(S): [id number] ORDERING CLINICIAN: Kirsty Nguyen FINDINGS: CARDIOMEDIASTINAL SILHOUETTE: [...] pm Signed by: Iva Vargas MD Technologist: [facility] XR Humerus Lefton 09-14-2018 XR Humerus Left Exam Date/Time: 09/14/2018 15:43 EDT Reason for Exam: Pain, Traumatic Report STUDY: XR Humerus Left; XR Shoulder Complete Left;; 09/14/2018 3:43 pm INDICATION: Pain, Traumatic. COMPARISON: None. ACCESSION NUMBER(S): [id number]; [id number] ORDERING CLINICIAN: Kirsty Nguyen FINDINGS: Five views [...] pm Signed by: Iva Vargas MD Technologist: [facility] XR Knee Complete Righton XR Knee Complete Right Exam Date/Time: 09/14/2018 15:43 EDT Reason for Exam: Pain, Traumatic Report STUDY: XR Knee Complete Right;; 09/14/2018 3:43 pm INDICATION: Pain, Traumatic. COMPARISON: None. ACCESSION NUMBER(S): [id number] ORDERING CLINICIAN: Kirsty Nguyen FINDINGS: Four views right knee: There is no fracture, dislocation or joint effusion. There is swelling anterior to the patella and infrapatellar tendon. IMPRESSION: No acute bony abnormality right knee, soft tissue swelling. FINAL REPORT Dictated: 09/14/2018 4:19 pm Iva Vargas MD Signed (Electronic Signature): 09/14/2018 4:19 pm Signed by: Iva Vargas MD Technologist: [facility] XR Shoulder Complete Lefton 09-14-2018 XR Shoulder Complete Left Exam Date/Time: 09/14/2018 15:43 EDT Reason for Exam: Pain, Traumatic Report STUDY: XR Humerus Left; XR Shoulder Complete Left;; 09/14/2018 3:43 pm INDICATION: Pain, Traumatic. COMPARISON: None. ACCESSION NUMBER(S): [id number]; [id number] ORDERING CLINICIAN: Kirsty Nguyen FINDINGS: Five views [...] pm Signed by: Iva Vargas MD Technologist: [facility] eGFRon 09-14-2018 GFR/1.73 sq M predicted among non-blacks MDRD vol rate/area (S/P/Bld) mL/min/{1.73_m2} Normal [facility] Comment on above: Order Comment: Order added by Discern Expert. Performed By: #### 1 [id number] #### [employer] [address] [place] [address] Vital Signs Date Time Vital Sign Value Performing Clinician Facility 12-02-2024 20:56-0400 Body temperature 98.8 [degF] Dr. Marycarmen Rodriguez DO Work Phone: [facility] 12-02-2024 20:56-0400 Diastolic blood pressure 78 mm[Hg] Dr. Marycarmen Rodriguez DO Work Phone: [facility] 12-02-2024 20:56-0400 Heart rate 77 /min Dr. Marycarmen Rodriguez DO Work Phone: [facility] 12-02-2024 20:56-0400 Respiratory rate 21 /min Dr. Marycarmen Rodriguez DO Work Phone: [facility] 12-02-2024 20:56-0400 SaO2% (BldA) [Mass fraction] 96 % Dr. Marycarmen Rodriguez DO Work Phone: [facility] 12-02-2024 20:56-0400 Systolic blood pressure 114 mm[Hg] Dr. Marycarmen Rodriguez DO Work Phone: [facility] 12-02-2024 20:21-0400 Inhaled oxygen flow rate 3 L/min Dr. Marycarmen Rodriguez DO Work Phone: [facility] 12-02-2024 20:16-0400 Body height 175.[address] Marycarmen Rodriguez DO Work Phone: [facility] 12-02-2024 20:16-0400 Body mass index (BMI) [Ratio] 35.9 kg/m2 Dr. Marycarmen Rodriguez DO Work Phone: [facility] 12-02-2024 20:16-0400 Body weight 110.[address] Marycarmen Rodriguez DO Work Phone: [facility] 12-02-2024 14:08-0400 Body temperature 98.8 [degF] Dr. Marycarmen Rodriguez DO Work Phone: [facility] 12-02-2024 14:08-0400 Diastolic blood pressure 72 mm[Hg] Dr. Marycarmen Rodriguez DO Work Phone: [facility] 12-02-2024 14:08-0400 Heart rate 78 /min Dr. Marycarmen Rodriguez DO Work Phone: [facility] 12-02-2024 14:08-0400 Respiratory rate 18 /min Dr. Marycarmen Rodriguez DO Work Phone: [facility] 12-02-2024 14:08-0400 SaO2% (BldA) [Mass fraction] 98 % Dr. Marycarmen Rodriguez DO Work Phone: [facility] 12-02-2024 14:08-0400 Systolic blood pressure 150 mm[Hg] Dr. Marycarmen Rodriguez DO Work Phone: [facility] 12-02-2024 14:01-0400 Inhaled oxygen flow rate 3 L/min Dr. Marycarmen Rodriguez DO Work Phone: [facility] 12-02-2024 08:32-0400 Body height 175.[address] Marycarmen Rodriguez DO Work Phone: [facility] 12-02-2024 08:32-0400 Body weight 109.[address] Marycarmen Rodriguez DO Work Phone: [facility] 12-02-2024 05:30-0400 Body mass index (BMI) [Ratio] 35.6 kg/m2 Dr. Marycarmen Rodriguez DO Work Phone: [facility] 11-30-2024 15:45-0400 Diastolic blood pressure 70 mm[Hg] Dr. Marycarmen Rodriguez DO Work Phone: [facility] 11-30-2024 15:45-0400 Systolic blood pressure 146 mm[Hg] Dr. Marycarmen Rodriguez DO Work Phone: [facility] 11-28-2024 09:15-0400 SaO2% (BldA) [Mass fraction] 94 % Dr. Marycarmen Rodriguez DO Work Phone: [facility] 11-28-2024 09:10-0400 Body temperature 97.5 [degF] Dr. Marycarmen Rodriguez DO Work Phone: [facility] 11-28-2024 09:10-0400 Diastolic blood pressure 64 mm[Hg] Dr. Marycarmen Rodriguez DO Work Phone: [facility] 11-28-2024 09:10-0400 Heart rate 86 /min Dr. Marycarmen Rodriguez DO Work Phone: [facility] 11-28-2024 09:10-0400 Respiratory rate 18 /min Dr. Marycarmen Rodriguez DO Work Phone: [facility] 11-28-2024 09:10-0400 Systolic blood pressure 129 mm[Hg] Dr. Marycarmen Rodriguez DO Work Phone: [facility] 11-28-2024 05:13-0400 Body mass index (BMI) [Ratio] 35.2 kg/m2 Dr. Marycarmen Rodriguez DO Work Phone: [facility] 11-28-2024 05:13-0400 Body weight 108.[address] Marycarmen Rodriguez DO Work Phone: [facility] 11-27-2024 15:54-0400 Body height 175.[address] Marycarmen Rodriguez DO Work Phone: [facility] 11-27-2024 15:54-0400 Body mass index (BMI) [Ratio] 35.4 kg/m2 Dr. Marycarmen Rodriguez DO Work Phone: [facility] 11-27-2024 15:54-0400 Body weight 108.[address] Marycarmen Rodriguez DO Work Phone: [facility] 11-27-2024 13:45-0400 Diastolic blood pressure 68 mm[Hg] Dr. Marycarmen Rodriguez DO Work Phone: [facility] 11-27-2024 13:45-0400 Heart rate 75 /min Dr. Marycarmen Rodriguez DO Work Phone: [facility] 11-27-2024 13:45-0400 Respiratory rate 21 /min Dr. Marycarmen Rodriguez DO Work Phone: [facility] 11-27-2024 13:45-0400 SaO2% (BldA) [Mass fraction] 95 % Dr. Marycarmen Rodriguez DO Work Phone: [facility] 11-27-2024 13:45-0400 Systolic blood pressure 115 mm[Hg] Dr. Marycarmen Rodriguez DO Work Phone: [facility] 11-26-2024 21:38-0400 Body temperature 98.1 [degF] Dr. Marycarmen Rodriguez DO Work Phone: [facility] 11-26-2024 21:38-0400 Diastolic blood pressure 68 mm[Hg] Dr. Marycarmen Rodriguez DO Work Phone: [facility] 11-26-2024 21:38-0400 Heart rate 68 /min Dr. Marycarmen Rodriguez DO Work Phone: [facility] 11-26-2024 21:38-0400 Respiratory rate 18 /min Dr. Marycarmen Rodriguez DO Work Phone: [facility] 11-26-2024 21:38-0400 SaO2% (BldA) [Mass fraction] 98 % Dr. Marycarmen Rodriguez DO Work Phone: [facility] 11-26-2024 21:38-0400 Systolic blood pressure 132 mm[Hg] Dr. Marycarmen Rodriguez DO Work Phone: [facility] 11-26-2024 18:03-0400 Inhaled oxygen flow rate 2 L/min Dr. Marycarmen Rodriguez DO Work Phone: [facility] 11-26-2024 17:37-0400 Body height 175.[address] Marycarmen Rodriguez DO Work Phone: [facility] 11-26-2024 17:37-0400 Body mass index (BMI) [Ratio] 37.3 kg/m2 Dr. Marycarmen Rodriguez DO Work Phone: [facility] 11-26-2024 17:37-0400 Body weight 114.[address] Marycarmen Rodriguez DO Work Phone: [facility] 11-22-2024 10:41-0400 Body mass index (BMI) [Ratio] 35.9 kg/m2 Dr. Marycarmen Rodriguez DO Work Phone: [facility] 11-22-2024 10:41-0400 Body weight 110.[address] Marycarmen Rodriguez DO Work Phone: [facility] 11-22-2024 10:41-0400 Diastolic blood pressure 62 mm[Hg] Dr. Marycarmen Rodriguez DO Work Phone: [facility] 11-22-2024 10:41-0400 Heart rate 66 /min Dr. Marycarmen Rodriguez DO Work Phone: [facility] 11-22-2024 10:41-0400 Respiratory rate 20 /min Dr. Marycarmen Rodriguez DO Work Phone: [facility] 11-22-2024 10:41-0400 Systolic blood pressure 107 mm[Hg] Dr. Marycarmen Rodriguez DO Work Phone: [facility] 10-31-2024 07:44-0400 Body mass index (BMI) [Ratio] 35.4 kg/m2 Dr. Marycarmen Rodriguez DO Work Phone: [facility] 10-31-2024 07:44-0400 Body temperature 97.1 [degF] Dr. Marycarmen Rodriguez DO Work Phone: [facility] 10-31-2024 07:44-0400 Body weight 108.[address] Marycarmen Rodriguez DO Work Phone: [facility] 10-31-2024 07:44-0400 Diastolic blood pressure 75 mm[Hg] Dr. Marycarmen Rodriguez DO Work Phone: [facility] 10-31-2024 07:44-0400 Heart rate 64 /min Dr. Marycarmen Rodriguez DO Work Phone: [facility] 10-31-2024 07:44-0400 Respiratory rate 20 /min Dr. Marycarmen Rodriguez DO Work Phone: [facility] 10-31-2024 07:44-0400 SaO2% (BldA) [Mass fraction] 97 % Dr. Marycarmen Rodriguez DO Work Phone: [facility] 10-31-2024 07:44-0400 Systolic blood pressure 135 mm[Hg] Dr. Marycarmen Rodriguez DO Work Phone: [facility] 10-25-2024 08:10-0400 Body height 175.[address] Marycarmen Rodriguez DO Work Phone: [facility] 10-25-2024 08:10-0400 Body mass index (BMI) [Ratio] 35.9 kg/m2 Dr. Marycarmen Rodriguez DO Work Phone: [facility] 10-25-2024 08:10-0400 Body weight 110.[address] Marycarmen Rodriguez DO Work Phone: [facility] 10-25-2024 08:10-0400 Diastolic blood pressure 85 mm[Hg] Dr. Marycarmen Rodriguez DO Work Phone: [facility] 10-25-2024 08:10-0400 Heart rate 85 /min Dr. Marycarmen Rodriguez DO Work Phone: [facility] 10-25-2024 08:10-0400 Respiratory rate 18 /min Dr. Marycarmen Rodriguez DO Work Phone: [facility] 10-25-2024 08:10-0400 Systolic blood pressure 121 mm[Hg] Dr. Marycarmen Rodriguez DO Work Phone: [facility] 09-20-2024 09:15-0400 Body height 175.[address] Marycarmen Rodriguez DO Work Phone: [facility] 09-20-2024 09:15-0400 Body mass index (BMI) [Ratio] 35.6 kg/m2 Dr. Marycarmen Rodriguez DO Work Phone: [facility] 09-20-2024 09:15-0400 Body temperature 96.8 [degF] Dr. Marycarmen Rodriguez DO Work Phone: [facility] 09-20-2024 09:15-0400 Body weight 109.[address] Marycarmen Rodriguez DO Work Phone: [facility] 09-20-2024 09:15-0400 Diastolic blood pressure 77 mm[Hg] Dr. Marycarmen Rodriguez DO Work Phone: [facility] 09-20-2024 09:15-0400 Heart rate 66 /min Dr. Marycarmen Rodriguez DO Work Phone: [facility] 09-20-2024 09:15-0400 Respiratory rate 18 /min Dr. Marycarmen Rodriguez DO Work Phone: [facility] 09-20-2024 09:15-0400 SaO2% (BldA) [Mass fraction] 97 % Dr. Marycarmen Rodriguez DO Work Phone: [facility] 09-20-2024 09:15-0400 Systolic blood pressure 121 mm[Hg] Dr. Marycarmen Rodriguez DO Work Phone: [facility] 07-18-2024 06:00-0400 Body height 175.[address] Marycarmen Rodriguez DO Work Phone: [facility] 07-18-2024 06:00-0400 Body weight 104.[address] Marycarmen Rodriguez DO Work Phone: [facility] 07-18-2024 06:00-0400 Heart rate 69 /min Dr. Marycarmen Rodriguez DO Work Phone: [facility] 07-18-2024 06:00-0400 SaO2% (BldA) [Mass fraction] 97 % Dr. Marycarmen Rodriguez DO Work Phone: [facility] 07-03-2024 08:35-0500 Body mass index (BMI) [Ratio] 36.6 kg/m2 Dr. Marycarmen Rodriguez DO Work Phone: [facility] 07-03-2024 08:35-0500 Body temperature 97.5 [degF] Dr. Marycarmen Rodriguez DO Work Phone: [facility] 07-03-2024 08:35-0500 Body weight 109.[address] Marycarmen Rodriguez DO Work Phone: [facility] 07-03-2024 08:35-0500 Diastolic blood pressure 77 mm[Hg] Dr. Marycarmen Rodriguez DO Work Phone: [facility] 07-03-2024 08:35-0500 Heart rate 72 /min Dr. Marycarmen Rodriguez DO Work Phone: [facility] 07-03-2024 08:35-0500 Respiratory rate 20 /min Dr. Marycarmen Rodriguez DO Work Phone: [facility] 07-03-2024 08:35-0500 SaO2% (BldA) [Mass fraction] 96 % Dr. Marycarmen Rodriguez DO Work Phone: [facility] 07-03-2024 08:35-0500 Systolic blood pressure 116 mm[Hg] Dr. Marycarmen Rodriguez DO Work Phone: [facility] 04-17-2024 15:55-0500 Body height [address] Marycarmen Rodriguez DO Work Phone: [facility] 04-17-2024 15:55-0500 Body mass index (BMI) [Ratio] 36.9 kg/m2 Dr. Marycarmen Rodriguez DO Work Phone: [facility] 04-17-2024 15:55-0500 Body weight 110.[address] Marycarmen Rodriguez DO Work Phone: [facility] 04-17-2024 15:55-0500 Diastolic blood pressure 53 mm[Hg] Dr. Marycarmen Rodriguez DO Work Phone: [facility] 04-17-2024 15:55-0500 Heart rate 70 /min Dr. Marycarmen Rodriguez DO Work Phone: [facility] 04-17-2024 15:55-0500 Respiratory rate 18 /min Dr. Marycarmen Rodriguez DO Work Phone: [facility] 04-17-2024 15:55-0500 SaO2% (BldA) [Mass fraction] 94 % Dr. Marycarmen Rodriguez DO Work Phone: [facility] 04-17-2024 15:55-0500 Systolic blood pressure 91 mm[Hg] Dr. Marycarmen Rodriguez DO Work Phone: [facility] 03-27-2024 10:17-0500 Diastolic blood pressure 79 mm[Hg] Dr. Marycarmen Rodriguez DO Work Phone: [facility] 03-27-2024 10:17-0500 Heart rate 67 /min Dr. Marycarmen Rodriguez DO Work Phone: [facility] 03-27-2024 10:17-0500 Respiratory rate 18 /min Dr. Marycarmen Rodriguez DO Work Phone: [facility] 03-27-2024 10:17-0500 Systolic blood pressure 134 mm[Hg] Dr. Marycarmen Rodriguez DO Work Phone: [facility] 03-20-2024 08:28-0500 Body mass index (BMI) [Ratio] 37.5 kg/m2 Dr. Marycarmen Rodriguez DO Work Phone: [facility] 03-20-2024 08:28-0500 Body weight 112.[address] Marycarmen Rodriguez DO Work Phone: [facility] 03-20-2024 08:28-0500 Diastolic blood pressure 89 mm[Hg] Dr. Marycarmen Rodriguez DO Work Phone: [facility] 03-20-2024 08:28-0500 Heart rate 61 /min Dr. Marycarmen Rodriguez DO Work Phone: [facility] 03-20-2024 08:28-0500 Respiratory rate 18 /min Dr. Marycarmen Rodriguez DO Work Phone: [facility] 03-20-2024 08:28-0500 Systolic blood pressure 141 mm[Hg] Dr. Marycarmen Rodriguez DO Work Phone: [facility] 12-21-2022 07:51-0400 Body height 172.[address] Marycarmen Rodriguez Work Phone: [facility] 12-21-2022 07:51-0400 Body weight 85.[address] Marycarmen Rodriguez Work Phone: [facility] 12-18-2022 08:27-0400 Body mass index (BMI) [Ratio] 28.7 kg/m2 Dr. Marycarmen Rodriguez Work Phone: [facility] 12-15-2022 13:03-0400 Body mass index (BMI) [Ratio] 28.7 kg/m2 Dr. Marycarmen Rodriguez Work Phone: [facility] 12-15-2022 13:03-0400 Body weight 85.[address] Marycarmen Rodriguez Work Phone: [facility] 12-15-2022 13:03-0400 Diastolic blood pressure 92 mm[Hg] Dr. Marycarmen Rodriguez Work Phone: [facility] 12-15-2022 13:03-0400 Heart rate 72 /min Dr. Marycarmen Rodriguez Work Phone: [facility] 12-15-2022 13:03-0400 Respiratory rate 16 /min Dr. Marycarmen Rodriguez Work Phone: [facility] 12-15-2022 13:03-0400 Systolic blood pressure 156 mm[Hg] Dr. Marycarmen Rodriguez Work Phone: [facility] 10-13-2022 10:59-0400 Body height 172.72 cm [facility] 10-13-2022 10:59-0400 Body mass index (BMI) [Ratio] 25.4 kg/m2 [facility] 10-13-2022 10:59-0400 Body weight 75.74 kg [facility] 10-13-2022 10:59-0400 Diastolic blood pressure 75 mm[Hg] [facility] 10-13-2022 10:59-0400 Heart rate 65 /min [facility] 10-13-2022 10:59-0400 Respiratory rate 18 /min [facility] 10-13-2022 10:59-0400 SaO2% (BldA) [Mass fraction] 94 % [facility] 10-13-2022 10:59-0400 Systolic blood pressure 143 mm[Hg] [facility] 09-21-2022 15:30-0400 Body mass index (BMI) [Ratio] 34.7 kg/m2 [facility] 09-21-2022 15:27-0400 Body temperature 98 [degF] [facility] 09-21-2022 15:27-0400 Diastolic blood pressure 84 mm[Hg] [facility] 09-21-2022 15:27-0400 Heart rate 79 /min [facility] 09-21-2022 15:27-0400 Respiratory rate 17 /min Marycarmen Jennifer [facility] 09-21-2022 15:27-0400 SaO2% (BldA) [Mass fraction] 96 % Marycarmen Jennifer [facility] 09-21-2022 15:27-0400 Systolic blood pressure 143 mm[Hg] Marycarmen Jennifer [facility] 09-21-2022 06:25-0400 Body weight 103.[address] [facility] 09-19-2022 01:30-0400 Inhaled oxygen concentration 21 % Marycarmen [facility] 09-01-2022 09:59-0400 Diastolic blood pressure 68 mm[Hg] Marycarmen [facility] 09-01-2022 09:59-0400 Heart rate 49 /min Marycarmen Jennifer [facility] 09-01-2022 09:59-0400 Systolic blood pressure 127 mm[Hg] Marycarmen [facility] 09-01-2022 09:57-0400 Body temperature 97.9 [degF] Marycarmen [facility] 09-01-2022 09:57-0400 Respiratory rate 18 /min Marycarmen [facility] 09-01-2022 09:57-0400 SaO2% (BldA) [Mass fraction] 93 % Marycarmen [facility] 09-01-2022 04:08-0400 Body mass index (BMI) [Ratio] 35.2 kg/m2 Marycarmen Jennifer [facility] 09-01-2022 04:08-0400 Body weight 108.[address] [facility] 08-31-2022 11:42-0400 Body height 175.[address] [facility] 08-19-2022 10:01-0400 Body height 175.[address] [facility] 08-19-2022 10:01-0400 Body mass index (BMI) [Ratio] 35.4 kg/m2 Marycarmen [facility] 08-19-2022 10:01-0400 Body weight 109.03 kg Marycarmen Rodriguez OLS [facility] 08-19-2022 10:01-0400 Diastolic blood pressure 79 mm[Hg] Marycarmen Jennifer [facility] 08-19-2022 10:01-0400 Heart rate 62 /min Marycarmen Jennifer [facility] 08-19-2022 10:01-0400 Respiratory rate 18 /min Marycarmen Jennifer [facility] 08-19-2022 10:01-0400 Systolic blood pressure 144 mm[Hg] Marycarmen [facility] 04-16-2022 12:43-0500 Body height 175.[address] Marycarmen Rodriguez Work Phone: [facility] 04-16-2022 12:43-0500 Body mass index (BMI) [Ratio] 35.2 kg/m2 Dr. Marycarmen Rodriguez Work Phone: [facility] 04-16-2022 12:43-0500 Body temperature 97 [degF] Dr. Marycarmen Rodriguez Work Phone: [facility] 04-16-2022 12:43-0500 Body weight 108.[address] Marycarmen Rodriguez Work Phone: [facility] 04-16-2022 12:43-0500 Diastolic blood pressure 78 mm[Hg] Dr. Marycarmen Rodriguez Work Phone: [facility] 04-16-2022 12:43-0500 Heart rate 66 /min Dr. Marycarmen Rodriguez Work Phone: [facility] 04-16-2022 12:43-0500 Respiratory rate 18 /min Dr. Marycarmen Rodriguez Work Phone: [facility] 04-16-2022 12:43-0500 SaO2% (BldA) [Mass fraction] 94 % Dr. Marycarmen Rodriguez Work Phone: [facility] 04-16-2022 12:43-0500 Systolic blood pressure 125 mm[Hg] Dr. Marycarmen Rodriguez Work Phone: [facility] 04-14-2022 10:27-0500 Body mass index (BMI) [Ratio] 35.2 kg/m2 Dr. Marycarmen Rodriguez Work Phone: [facility] 04-14-2022 10:27-0500 Body weight 108.[address] Marycarmen Rodriguez Work Phone: [facility] 04-14-2022 10:27-0500 Diastolic blood pressure 68 mm[Hg] Dr. Marycarmen Rodriguez Work Phone: [facility] 04-14-2022 10:27-0500 Heart rate 64 /min Dr. Marycarmen Rodriguez Work Phone: [facility] 04-14-2022 10:27-0500 Respiratory rate 18 /min Dr. Marycarmen Rodriguez Work Phone: [facility] 04-14-2022 10:27-0500 Systolic blood pressure 130 mm[Hg] Dr. Marycarmen Rodriguez Work Phone: [facility] 03-27-2022 13:25-0500 Body temperature 97.9 [degF] Dr. Marycarmen Rodriguez Work Phone: [facility] 03-27-2022 13:25-0500 Diastolic blood pressure 86 mm[Hg] Dr. Marycarmen Rodriguez Work Phone: [facility] 03-27-2022 13:25-0500 Heart rate 86 /min Dr. Marycarmen Rodriguez Work Phone: [facility] 03-27-2022 13:25-0500 Respiratory rate 14 /min Dr. Marycarmen Rodriguez Work Phone: [facility] 03-27-2022 13:25-0500 SaO2% (BldA) [Mass fraction] 96 % Dr. Marycarmen Rodriguez Work Phone: [facility] 03-27-2022 13:25-0500 Systolic blood pressure 134 mm[Hg] Dr. Marycarmen Rodriguez Work Phone: [facility] 01-07-2022 11:07-0400 Body mass index (BMI) [Ratio] 34.9 kg/m2 Dr. Marycarmen Rodriguez Work Phone: [facility] Work Phone: 01-07-2022 11:07-0400 Body temperature 97.4 [degF] Dr. Marycarmen Rodriguez Work Phone: [facility] Work Phone: 01-07-2022 11:07-0400 Body weight 107.[address] Marycarmen Rodriguez Work Phone: [facility] Work Phone: 01-07-2022 11:07-0400 Diastolic blood pressure 87 mm[Hg] Dr. Marycarmen Rodriguez Work Phone: [facility] Work Phone: 01-07-2022 11:07-0400 Heart rate 60 /min Dr. Marycarmen Rodriguez Work Phone: [facility] Work Phone: 01-07-2022 11:07-0400 Respiratory rate 16 /min Dr. Marycarmen Rodriguez Work Phone: [facility] Work Phone: 01-07-2022 11:07-0400 SaO2% (BldA) [Mass fraction] 96 % Dr. Marycarmen Rodriguez Work Phone: [facility] Work Phone: 01-07-2022 11:07-0400 Systolic blood pressure 155 mm[Hg] Dr. Marycarmen Rodriguez Work Phone: [facility] Work Phone: 11-21-2021 10:24-0400 Body height 175.[address] Marycarmen Rodriguez Work Phone: [facility] Work Phone: 11-21-2021 10:24-0400 Body mass index (BMI) [Ratio] 34.9 kg/m2 Dr. Marycarmen Rodriguez Work Phone: [facility] Work Phone: 11-21-2021 10:24-0400 Body weight 107.[address] Marycarmen Rodriguez Work Phone: [facility] Work Phone: 11-21-2021 10:24-0400 Diastolic blood pressure 77 mm[Hg] Dr. Marycarmen Rodriguez Work Phone: [facility] Work Phone: 11-21-2021 10:24-0400 Heart rate 61 /min Dr. Marycarmen Rodriguez Work Phone: [facility] Work Phone: 11-21-2021 10:24-0400 Respiratory rate 18 /min Dr. Marycarmen Rodriguez Work Phone: [facility] Work Phone: 11-21-2021 10:24-0400 SaO2% (BldA) [Mass fraction] 97 % Dr. Marycarmen Rodriguez Work Phone: [facility] Work Phone: 11-21-2021 10:24-0400 Systolic blood pressure 138 mm[Hg] Dr. Marycarmen Rodriguez Work Phone: [facility] Work Phone: 11-16-2021 16:49-0400 Diastolic blood pressure 87 mm[Hg] Dr. Marycarmen Rodriguez Work Phone: [facility] Work Phone: 11-16-2021 16:49-0400 Heart rate 53 /min Dr. Marycarmen Rodriguez Work Phone: [facility] Work Phone: 11-16-2021 16:49-0400 Respiratory rate 16 /min Dr. Marycarmen Rodriguez Work Phone: [facility] Work Phone: 11-16-2021 16:49-0400 SaO2% (BldA) [Mass fraction] 93 % Dr. Marycarmen Rodriguez Work Phone: [facility] Work Phone: 11-16-2021 16:49-0400 Systolic blood pressure 117 mm[Hg] Dr. Marycarmen Rodriguez Work Phone: [facility] Work Phone: 11-16-2021 12:55-0400 Body mass index (BMI) [Ratio] 33.2 kg/m2 Dr. Marycarmen Rodriguez Work Phone: [facility] Work Phone: 11-16-2021 12:55-0400 Body temperature 97.6 [degF] Dr. Marycarmen Rodriguez Work Phone: [facility] Work Phone: 11-16-2021 12:55-0400 Body weight 102.[address] Marycarmen Rodriguez Work Phone: [facility] Work Phone: 09-16-2021 10:37-0400 Body height 175.[address] Marycarmen Rodriguez Work Phone: [facility] Work Phone: 09-16-2021 10:37-0400 Body mass index (BMI) [Ratio] 35.7 kg/m2 Dr. Marycarmen Rodriguez Work Phone: [facility] Work Phone: 09-16-2021 10:37-0400 Body weight 109.[address] Marycarmen Rodriguez Work Phone: [facility] Work Phone: 09-16-2021 10:37-0400 Diastolic blood pressure 69 mm[Hg] Dr. Marycarmen Rodriguez Work Phone: [facility] Work Phone: 09-16-2021 10:37-0400 Heart rate 50 /min Dr. Marycarmen Rodriguez Work Phone: [facility] Work Phone: 09-16-2021 10:37-0400 Respiratory rate 18 /min Dr. Marycarmen Rodriguez Work Phone: [facility] Work Phone: 09-16-2021 10:37-0400 Systolic blood pressure 122 mm[Hg] Dr. Marycarmen Rodriguez Work Phone: [facility] Work Phone: 08-01-2021 10:02-0400 Body mass index (BMI) [Ratio] 35.7 kg/m2 Dr. Marycarmen Rodriguez Work Phone: [facility] Work Phone: 08-01-2021 10:02-0400 Body weight 109.[address] Marycarmen Rodriguez Work Phone: [facility] Work Phone: 08-01-2021 10:02-0400 Diastolic blood pressure 81 mm[Hg] Dr. Marycarmen Rodriguez Work Phone: [facility] Work Phone: 08-01-2021 10:02-0400 Heart rate 59 /min Dr. Marycarmen Rodriguez Work Phone: [facility] Work Phone: 08-01-2021 10:02-0400 Respiratory rate 18 /min Dr. Marycarmen Rodriguez Work Phone: [facility] Work Phone: 08-01-2021 10:02-0400 SaO2% (BldA) [Mass fraction] 97 % Dr. Marycarmen Rodriguez Work Phone: [facility] Work Phone: 08-01-2021 10:02-0400 Systolic blood pressure 133 mm[Hg] Dr. Marycarmen Rodriguez Work Phone: [facility] Work Phone: 08-01-2021 10:02-0400 Body height 175.[address] Marycarmen Rodriguez Work Phone: [facility] Work Phone: 08-01-2021 10:02-0400 Body mass index (BMI) [Ratio] 35.7 kg/m2 Dr. Marycarmen Rodriguez Work Phone: [facility] Work Phone: 08-01-2021 10:02-0400 Body weight 109.[address] Marycarmen Rodriguez Work Phone: [facility] Work Phone: 08-01-2021 10:02-0400 Diastolic blood pressure 81 mm[Hg] Dr. Marycarmen Rodriguez Work Phone: [facility] Work Phone: 08-01-2021 10:02-0400 Heart rate 59 /min Dr. Marycarmen Rodriguez Work Phone: [facility] Work Phone: 08-01-2021 10:02-0400 Respiratory rate 18 /min Dr. Marycarmen Rodriguez Work Phone: [facility] Work Phone: 08-01-2021 10:02-0400 SaO2% (BldA) [Mass fraction] 97 % Dr. Marycarmen Rodriguez Work Phone: [facility] Work Phone: 08-01-2021 10:02-0400 Systolic blood pressure 133 mm[Hg] Dr. Marycarmen Rodriguez Work Phone: [facility] Work Phone: 06-10-2021 18:38-0500 Diastolic blood pressure 75 mm[Hg] Dr. Marycarmen Rodriguez Work Phone: [facility] Work Phone: 06-10-2021 18:38-0500 Heart rate 57 /min Dr. Marycarmen Rodriguez Work Phone: [facility] Work Phone: 06-10-2021 18:38-0500 Respiratory rate 14 /min Dr. Marycarmen Rodriguez Work Phone: [facility] Work Phone: 06-10-2021 18:38-0500 SaO2% (BldA) [Mass fraction] 96 % Dr. Marycarmen Rodriguez Work Phone: [facility] Work Phone: 06-10-2021 18:38-0500 Systolic blood pressure 121 mm[Hg] Dr. Marycarmen Rodriguez Work Phone: [facility] Work Phone: 06-10-2021 13:36-0500 Body mass index (BMI) [Ratio] 34 kg/m2 Dr. Marycarmen Rodriguez Work Phone: [facility] Work Phone: 06-10-2021 13:36-0500 Body temperature 97 [degF] Dr. Marycarmen Rodriguez Work Phone: [facility] Work Phone: 06-10-2021 13:36-0500 Body weight 104.[address] Marycarmen Rodriguez Work Phone: [facility] Work Phone: 05-19-2021 16:55-0500 Respiratory rate 16 /min Dr. Marycarmen Rodriguez Work Phone: [facility] Work Phone: 05-19-2021 14:43-0500 Body temperature 96.5 [degF] Dr. Marycarmen Rodriguez Work Phone: [facility] Work Phone: 05-19-2021 14:43-0500 Diastolic blood pressure 94 mm[Hg] Dr. Marycarmen Rodriguez Work Phone: [facility] Work Phone: 05-19-2021 14:43-0500 Heart rate 63 /min Dr. Marycarmen Rodriguez Work Phone: [facility] Work Phone: 05-19-2021 14:43-0500 SaO2% (BldA) [Mass fraction] 99 % Dr. Marycarmen Rodriguez Work Phone: [facility] Work Phone: 05-19-2021 14:43-0500 Systolic blood pressure 172 mm[Hg] Dr. Marycarmen Rodriguez Work Phone: [facility] Work Phone: 05-19-2021 14:42-0500 Body mass index (BMI) [Ratio] 34 kg/m2 Dr. Marycarmen Rodriguez Work Phone: [facility] Work Phone: 05-19-2021 14:42-0500 Body weight 104.[address] Marycarmen Rodriguez Work Phone: [facility] Work Phone: 12-26-2020 10:29-0400 Diastolic blood pressure 76 mm[Hg] Eladio Ingram MD Work Phone: [facility] 12-26-2020 10:29-0400 Systolic blood pressure 141 mm[Hg] Eladio Ingram MD Work Phone: [facility] 12-26-2020 10:24-0400 Body height 175.3 cm Eladio Ingram MD Work Phone: [facility] 12-26-2020 10:24-0400 Body mass index (BMI) [Ratio] 33.67 kg/m2 Eladio Ingram MD Work Phone: [facility] 12-26-2020 10:24-0400 Body weight 103.42 kg Eladio Ingram MD Work Phone: [facility] 12-26-2020 10:24-0400 Heart rate 59 /min Eladio Ingram MD Work Phone: [facility] 12-26-2020 10:24-0400 SaO2% (BldA) [Mass fraction] 95 % Eladio Ingram MD Work Phone: [facility] 10-09-2020 10:53-0400 Diastolic blood pressure 72 mm[Hg] Fernanda Acuña [employer] Work Phone: [facility] 10-09-2020 10:53-0400 Systolic blood pressure 134 mm[Hg] Fernanda Acuña [employer] Work Phone: [facility] 10-09-2020 09:59-0400 Body mass index (BMI) [Ratio] 34.6 kg/m2 Fernanda Acuña [employer] Work Phone: [facility] 10-09-2020 09:59-0400 Body weight 106.28 kg Fernanda Acuña [employer] Work Phone: [facility] 10-09-2020 09:59-0400 Heart rate 58 /min Fernanda Acuña [employer] Work Phone: [facility] 10-09-2020 09:59-0400 Respiratory rate 16 /min Fernanda Acuña [employer] Work Phone: [facility] 10-09-2020 09:59-0400 SaO2% (BldA) [Mass fraction] 94 % Fernanda Acuña [employer] Work Phone: [facility] 12-17-2016 11:21-0400 BMI (Body Mass Index) 32.99 kg/m2 Eladio Ingram [facility] Work Phone: 12-17-2016 11:21-0400 BP Diastolic 82 mm[Hg] Eladio Ingram [facility] Work Phone: 12-17-2016 11:21-0400 BP Systolic 150 mm[Hg] Eladio Ingram [facility] Work Phone: 12-17-2016 11:21-0400 Height 175.3 cm Eladio Ingram [facility] Work Phone: 12-17-2016 11:21-0400 Pulse (Heart Rate) 70 /min Eladio Ingram [facility] Work Phone: 12-17-2016 11:21-0400 Pulse Oximetry 97 % Eladio Ingram [facility] Work Phone: 12-17-2016 11:21-0400 Weight 101.33 kg Eladio Ingram [facility] Work Phone: Encounters Encounter Date Encounter Type Care Provider Facility Start: 12-03-2024 Evaluation and manag ement of inpatient Abraham Ridley Facility:[facility] Start: 12-02-2024 ambulatory Abraham Ridley [facility] ility:[facility] Start: 12-02-2024 Evaluation and manag ement of inpatient Dr. Marycarmen Rodriguez DO Work Phone: -Intensive Care Unit Start: 12-02-2024 Dr. Abraham Ridley DO -Intensive Care Unit Work Phone: Start: 12-02-2024 Dr. Nickie Danielson DO [facility] Work Phone: Start: 12-01-2024 Dr. Marcin Araujo MD -[facility] Start: 11-30-2024 End: 12-02-2024 Evaluation and management of inpatient Dr. Marycarmen Rodriguez DO Work Phone: -Intensive Care Unit Start: 11-30-2024 ambulatory Abraham Cool ility:[facility] Start: 11-30-2024 End: 12-02-2024 Dr. Abraham Ridley DO -Intensive Care Unit Work Phone: Start: 11-27-2024 Dr. Jose Hay MD -[facility] Start: 11-27-[address] Marycarmen vera DO Work Phone: -[facility] Start: 11-27-2024 End: 11-28-2024 ambulatory Jose Hay Facility:[facility] Start: 11-27-2024 End: 11-28-2024 observation [...] Dr. Marycarmen Rodriguez DO Work Phone: -Radiology [facility] Start: 11-22-2024 End: 11-22-2024 Gustabo Pérez AUTOMATION QA ANALYST-C -Radiology [facility] Work Phone: Start: 11-22-2024 End: 11-22-2024 Gustabo Pérez AUTOMATION QA ANALYST-C -[facility] Work Phone: Start: 11-22-2024 End: 11-22-[address] Marycarmen Rodriguez DO Work Phone: -[facility] Start: 11-22-2024 End: 11-22-2024 ambulatory Gustabo Pérez AUTOMATION QA ANALYST Facility:[facility] Start: 11-20-2024 End: 11-20-[address] Marycarmen Rodriguez DO Work Phone: -Radiology [facility] Start: 11-20-2024 End: 11-20-2024 Dr. Brooks Carpenter MD -Radiology [facility] Work Phone: Start: 11-20-2024 End: 11-20-2024 ambulatory Marycarmen Rodriguez Facility:[facility] Start: 11-13-2024 ambulatory Marycarmen Rodriguez Facility: [facility] Start: 11-13-2024 Non-patient / Non-visit Dr. Jsoe colon MD -[facility] Start: 11-13-2024 Dr. Jose Hay MD -[facility] Start: 11-10-2024 End: 11-10-[address] Marycarmen Rodriguez DO Work Phone: -Sleep Lab Start: 11-10-2024 End: 11-10-2024 Patient encounter procedure AUTOMATION QA ANALYST Maren Olivas -Sleep Lab Work Phone: Start: 11-10-2024 End: 11-10-2024 AUTOMATION QA ANALYST Maren Olivas -Sleep Lab Work Phone: Start: 11-10-2024 ambulatory Marycarmen Rodriguez Facility: [facility] Start: 11-10-2024 Non-patient / Non-visit Dr. Lance pereira MD -[facility] Work Phone: Start: 11-10-2024 Dr. Lance Rodriguez MD -[facility] Work Phone: Start: 11-10-2024 End: 11-10-[address] Marycarmen Rodriguez DO Work Phone: -Cardiovascular Services Start: 11-10-2024 End: 11-10-2024 Patient encounter procedure Gustabo Pérez AUTOMATION QA ANALYST-C -Cardiovascular Services Work Phone: Start: 11-10-2024 End: 11-10-2024 Gustabo Pérez AUTOMATION QA ANALYST-C -Cardiovascular Services Work Phone: Start: 11-09-2024 End: 11-10-[address] Marycarmen Rodriguez DO Work Phone: -Laboratory [facility] Start: 11-09-2024 End: 11-09-[address] Marycarmen Rodriguez DO -Laboratory [facility] Start: 11-09-2024 End: 11-09-2024 Dr. Marycarmen Rodriguez DO -[facility]atory [facility] Start: 11-09-2024 End: 11-09-2024 ambulatory Marycarmen Rodriguez Facility:[facility] Start: 10-31-2024 End: 10-31-2024 Patient encounter procedure AUTOMATION QA ANALYST Maren Olivas -[facility] Work Phone: Start: 10-31-2024 End: 10-31-2024 AUTOMATION QA ANALYST Maren Olivas -[facility] Work Phone: Start: 10-31-2024 End: 10-31-[address] Marycarmen Rodriguez DO Work Phone: -[facility] Start: 10-26-2024 End: 10-26-[address] Marycarmen Rodriguez DO Work Phone: -Sleep Lab Start: 10-26-2024 End: 10-26-2024 Patient encounter procedure Marni Horn AUTOMATION QA ANALYST-C -Sleep Lab Work Phone: Start: 10-26-2024 End: 10-26-2024 Marni Horn AUTOMATION QA ANALYST-C -Sleep Lab Work Phone: Start: 10-25-2024 End: 10-25-2024 Patient encounter procedure Gustabo Pérez AUTOMATION QA ANALYST-C -[facility] Work Phone: Start: 10-25-2024 End: 10-25-2024 Gustabo Pérez AUTOMATION QA ANALYST-C -[facility] Work Phone: Start: 10-25-2024 End: 10-26-[address] Marycramen Rodriguez DO Work Phone: [facility] Work Phone: Start: 10-18-2024 End: 10-18-[address] Marycarmen Rodriguez DO Work Phone: [facility] Work Phone: Start: 10-18-2024 End: 10-18-2024 Patient encounter procedure Marni Horn AUTOMATION QA ANALYST-C -Sleep Lab Work Phone: Start: 10-18-2024 End: 10-18-2024 Marni Horn AUTOMATION QA ANALYST-C -Sleep Lab Work Phone: Start: 10-18-2024 End: 10-18-[address] Marycarmen Rodriguez DO Work Phone: [facility] Work Phone: Start: 10-18-2024 End: 10-18-[address] Brooks Carpenter MD -Laboratory Work Phone: Start: 10-18-2024 End: 10-18-2024 Dr. Brooks Carpenter MD -Laboratory Work Phone: Start: 10-18-2024 End: 10-18-2024 ambulatory Marycarmen Jennifer Facility:[facility] Start: 09-29-2024 End: 09-29-[address] Marycarmen Rodriguez DO Work Phone: [facility] Work Phone: Start: 09-29-2024 End: 09-29-[address] Marycarmen Rodriguez DO -Laboratory [place] Work Phone: Start: 09-29-2024 End: 09-29-2024 Dr. Marycarmen Rodriguez DO -Laboratory [place] Work Phone: Start: 09-29-2024 End: 09-29-2024 ambulatory Marycarmen [facility] Facility:[facility] Start: 09-22-2024 End: 09-22-[address] Marycarmen Rodriguez DO Work Phone: [facility] Work Phone: Start: 09-22-2024 End: 09-22-2024 Patient encounter procedure Marni Horn AUTOMATION QA ANALYST-C -Sleep Lab Work Phone: Start: 09-22-2024 End: 09-22-2024 Marni Horn AUTOMATION QA ANALYST-C -Sleep Lab Work Phone: Start: 09-22-2024 End: 09-22-2024 [facility] Start: 09-20-2024 End: 09-20-[address] Marycarmen Rodriguez DO Work Phone: [facility] Work Phone: Start: 09-20-2024 End: 09-20-2024 Patient encounter procedure AUTOMATION QA ANALYST Maren Olivas -Laboratory Work Phone: Start: 09-20-2024 End: 09-20-2024 AUTOMATION QA ANALYST Maren Olivas -Laboratory Work Phone: Start: 09-20-2024 End: 09-20-2024 Patient encounter procedure AUTOMATION QA ANALYST Maren Olivas -[facility] Work Phone: Start: 09-20-2024 End: 09-20-2024 AUTOMATION QA ANALYST Maren Olivas -[facility] Work Phone: Start: 09-20-2024 End: 09-20-[address] Marycarmen Rodriguez DO Work Phone: [facility] Work Phone: Start: 09-20-2024 End: 09-20-2024 ambulatory [facility] Facility:[facility] Start: 08-03-2024 End: 08-03-[address] Marycarmen Rodriguez DO Work Phone: [facility] Work Phone: Start: 08-03-2024 End: 08-03-2024 Patient encounter procedure Marni Horn NP-C -Sleep Lab Work Phone: Start: 08-03-2024 End: 08-03-2024 Marni Horn AUTOMATION QA ANALYST-C -Sleep Lab Work Phone: Start: 08-03-2024 End: 08-03-2024 ambulatory Marycarmen Jennifer Facility:[facility] Start: 07-18-2024 ambulatory [facility] Facility: [facility] Start: 07-18-2024 Non-patient / Non-visit Dr. Zen schultz DO -[facility] Start: 07-18-2024 End: 07-18-[address] Marycarmen Rodriguez DO Work Phone: [facility] Work Phone: Start: 07-18-2024 End: 07-18-2024 Patient encounter procedure Marni Horn NP-C -Pulmonary Services/Neurology Work Phone: Start: 07-17-2024 Non-patient / Non-visit Dr. Zen schultz DO -[facility] Start: 07-17-2024 End: 07-18-[address] Marycarmen Rodriguez DO Work Phone: [facility] Work Phone: Start: 07-17-2024 End: 07-17-2024 Patient encounter procedure Marni POOL -Sleep Lab Work Phone: Start: 07-17-2024 End: 07-17-2024 ambulatory [facility] Facility:[facility] Start: 07-07-2024 End: 07-07-[address] Marycarmen Rodriguez DO Work Phone: [facility] Work Phone: Start: 07-07-2024 End: 07-07-2024 Patient encounter procedure Marni POOL -Sleep Lab Work Phone: Start: 07-07-2024 End: 07-07-2024 ambulatory [facility] Facility:[facility] Start: 07-03-2024 End: 07-03-2024 Patient encounter procedure Marni PRAKASHC -[facility] Work Phone: Start: 07-03-2024 End: 07-03-2024 ambulatory [facility] Facility:[facility] Start: 06-30-2024 End: 06-30-[address] Marycarmen Rodriguez DO Work Phone: [facility] Work Phone: Start: 06-30-2024 End: 06-30-[address] Marycarmen Rodriguez DO -Laboratory, [facility] Start: 06-30-2024 End: 06-30-2024 ambulatory [facility] Facility:[facility] Start: 04-17-2024 End: 04-17-2024 Patient encounter procedure Gustabo PRAKASHC -[facility] Work Phone: Start: 04-17-2024 End: 04-17-2024 ambulatory Gustabo Pérez AUTOMATION QA ANALYST Facility:[facility] Start: 04-17-2024 End: 04-17-2024 ambulatory Gustabo Murray Beto AUTOMATION QA ANALYST Facility:[facility] Start: 03-27-2024 End: 03-27-[address] Jose Hay MD -[facility] Work Phone: Start: 03-27-2024 End: 03-27-2024 ambulatory Jose Hay Facility:[facility] Start: 03-23-2024 End: 03-23-[address] Marycarmen Rodriguez DO -[facility], [facility] Start: 03-23-2024 End: 03-23-2024 ambulatory Marycarmen Jennifer Facility:[facility] Start: 03-20-2024 End: 03-20-[address] Jose Hay MD -[facility] Work Phone: Start: 03-20-2024 End: 03-20-2024 ambulatory Marycarmen [facility] Facility:[facility] Start: 05-07-2023 End: 05-07-2023 ambulatory [facility] Work Phone: Start: 05-07-2023 End: 05-07-2023 Patient encounter procedure [facility] Start: 12-29-2022 Non-patient / Non-visit Dr. Ap Rodriguez Work Phone: [facility] Work Phone: Start: 12-28-2022 Non-patient / Non-visit Dr. Ap Rodriguez Work Phone: [facility] Start: 12-28-2022 End: 12-28-[address] Marycarmen Rodriguez Work Phone: [facility] Work Phone: Start: 12-28-2022 End: 12-28-[address] Marycarmen Rodriguez Work Phone: [facility]-Cardiovascula r Services Work Phone: Start: 12-21-2022 End: 12-21-2022 Admission to same day surgery center Dr. Marycarmen Rodriguez Work Phone: [facility]-[employer]rial [employer]r/Special Procedures Work Phone: Start: 12-21-2022 End: 12-21-[address] Marycarmen Rodriguez Work Phone: [facility] Work Phone: Start: 12-15-2022 End: 12-15-[address] Marycarmen Rodriguez Work Phone: [facility] Work Phone: Start: 12-15-2022 End: 12-15-[address] Marycarmen Rodriguez Work Phone: [facility]-Laboratory Work Phone: Start: 12-15-2022 End: 12-15-[address] Marycarmen Rodriguez Work Phone: [facility] Work Phone: Start: 10-16-2022 End: 10-16-2022 ambulatory Marycarmen SWAIN [facility] Work Phone: Start: 10-16-2022 End: 10-16-2022 Patient encounter procedure Marycarmen SWAIN [facility]-Pulmonary Services/Neurology Start: 10-13-2022 End: 10-13-2022 ambulatory Marycarmen SWAIN [facility] Work Phone: Start: 10-13-2022 End: 10-13-2022 Patient encounter procedure Marycarmen SWAIN [facility] Start: 09-21-2022 Non-patient / Non-visit Marycarmen gifford [facility] Inpatient Physicians Start: 09-20-2022 Non-patient / Non-visit Marycarmen gifford [facility] Inpatient Physicians Start: 09-19-2022 Non-patient / Non-visit Marycarmen gifford [facility] Inpatient Physicians Start: 09-18-2022 Non-patient / Non-visit Marycarmen gifford [facility] Start: 09-17-2022 End: 09-17-2022 Non-patient / Non-visit Marycarmen SWAIN [facility] Inpatient Physicians Start: 09-17-2022 End: 09-21-2022 Evaluation and management of inpatient Marycarmen SWAIN [facility] Start: 09-09-2022 Non-patient / Non-visit Marycarmen gifford [facility] Start: 09-01-2022 Non-patient / Non-visit Marycarmen gifford [facility] Start: 08-31-2022 End: 08-31-2022 Non-patient / Non-visit Marycarmen Rodriguez [facility] Start: 08-31-2022 Non-patient / Non-visit Marycarmen gifford [facility] Heart [facility] Start: 08-31-2022 End: 09-01-2022 Evaluation and management of inpatient Marycarmen Rodriguez [facility] Start: 08-31-2022 End: 09-01-2022 observation encounter Marycarmen Rodriguez [facility] Work Phone: Start: 08-19-2022 End: 08-19-[address] [facility] Work Phone: Start: 08-19-2022 End: 08-19-2022 Patient encounter procedure Marycarmen Rodriguez [facility] Heart [facility] Start: 08-11-2022 Non-patient / Non-visit Marycarmen gifford [facility] Heart [facility] Start: 06-11-2022 End: 06-11-[address] Marycarmen Rodriguez Work Phone: [facility] Work Phone: Start: 06-11-2022 End: 06-11-[address] Marycarmen Rodriguez Work Phone: [facility] Start: 04-21-2022 Non-patient / Non-visit Dr. Ap Rodriguez Work Phone: [facility] Start: 04-21-2022 End: 04-21-[address] Marycarmen Rodriguez Work Phone: [facility] Work Phone: Start: 04-21-2022 End: 04-21-[address] Marycarmen Rodriguez Work Phone: [facility]-Cardiovascula r Services Start: 04-16-2022 End: 04-16-[address] [facility]armen Rodriguez [facility] Start: 04-14-2022 End: 04-14-[address] Marycarmen Rodriguez Work Phone: [facility] Work Phone: Start: 04-14-2022 End: 04-14-[address] Marycarmen Rodriguez Work Phone: [facility] Start: 04-14-2022 End: 04-14-[address] Marycarmen Rodriguez Work Phone: [facility] Start: 03-27-2022 End: 03-27-[address] Marycarmen Rodriguez Work Phone: [facility] Start: 01-20-2022 End: 01-20-[address] Marycarmen Rodriguez Work Phone: [facility], [facility] Start: 01-07-2022 End: 01-07-[address] Marycarmen Rodriguez [facility] Start: 11-27-2021 Non-patient / Non-visit Dr. Ap Rodriguez Work Phone: [facility] Start: 11-26-2021 End: 11-26-[address] Marycarmen Rodriguez Work Phone: [facility]-Pulmonary Services/Neurology Start: 11-21-2021 End: 11-21-[address] Marycarmen Rodriguez Work Phone: [facility] Start: 11-16-2021 End: 11-16-2021 Emergency department patient visit Dr. Marycarmen Rodriguez Work Phone: [facility]-Emergency Department Start: 10-28-2021 End: 10-28-[address] Marycarmen Rodriguez Work Phone: [facility] Start: 09-16-2021 End: 09-16-[address] Marycarmen Rodriguez [facility] Start: 09-16-2021 End: 09-16-[address] Marycarmen Rodriguez Work Phone: [facility] Start: 08-15-2021 Non-patient / Non-visit Dr. Ap Rodriguez Work Phone: [facility] Start: 08-15-2021 Non-patient / Non-visit Dr. Ap Rodriguez Work Phone: [facility] Start: 08-15-2021 End: 08-15-[address] Marycarmen Rodriguez Work Phone: [facility]-Cardiovascula r Services Start: 08-01-2021 End: 08-01-[address] Marycarmen Rodriguez Work Phone: [facility] Start: 06-10-2021 End: 06-10-2021 Emergency department patient visit Dr. Marycarmen Rodriguez Work Phone: [facility]-Emergency Department Start: 05-19-2021 End: 05-19-2021 Emergency department patient visit Dr. Marycarmen Rodriguez Work Phone: [facility]-Emergency Department Start: 05-16-2021 End: 05-16-[address] 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) (Primary Dx) Start: 12-31-2020 Admission to [facility] Eladio Ingram MD Work Phone: [facility] Comment on above: Chest pain, unspecif ied type (Primary Dx) Start: 12-26-2020 End: 12-30-2020 Orders Only Justa Euceda RN [facility] Start: 12-26-2020 End: 12-26-2020 Office outpatient visit 25 minutes Marycarmen Rodriguez DO Work Phone: [employer] [place] Office Comment on above: Essential hypertensi on (Primary Dx); Atherosclerosis of [place] coronary artery with angina pectoris, 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); Coronary artery disease involving [place] coronary artery 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 (HCC); Mixed hyperlipidemia Start: 12-18-2020 ambulatory MIN Lux y:[facility] Start: 10-15-2020 End: 10-16-2020 ambulatory [facility] Start: 10-15-2020 End: 10-15-2020 Subsequent hospital visit by physician Eladio Ingram MD Work Phone: [facility] V[facility] Phys[facility] Comment on above: Arrived Start: 10-10-2020 ambulatory FERNANDABULMARO ACUÑA [facility] Ambulatory Start: 10-09-2020 End: 10-09-2020 Orders Only Fernandabulmaro Acuña [employer] Work Phone: [facility] Office Comment on above: DEAN (dyspnea on exer tion) (Primary Dx) Start: 10-09-2020 End: 10-09-2020 Office outpatient new 45 minutes Fernanda Silvia Acuña [employer] Work Phone: [facility] Office Comment on above: DEAN (dyspnea on exer tion); Essential hypertension; Type 2 diabetes mellitus without complication, without long-term current use of insulin (HCC); MATTHEW (obstructive sleep apnea); Coronary artery disease involving [place] coronary artery of [place] heart without angina pectoris Start: 10-04-2020 End: 10-04-2020 Orders Only Deisi March RN [facility] Office Comment on above: Shortness of breath (Primary Dx) Start: 12-17-2016 Office/outpatient vi sit, est, level 4 Eladio Ingram Work Phone: [facility] Vascular Physicians Start: 11-28-2016 End: 11-28-2016 Patient encounter procedure [facility] Procedures Date Procedure Procedure Detail Performing [...] Work Phone: Comment on above: Test Ordered: [id number] Screen, Urine Negative ng/mL UI Reference Range: Ozuvtu=755Uorivwnxrgg test includes Amphetamine and Methamphetamine.Barbiturates Negative ng/mL UI Reference Range: Swuysb=492Pqtegpbdglwnljl Negative ng/mL UI Reference Range: Nzmtpo=425Wjszhzt (Metab.), Urine Negative ng/mL UI Reference Range: Qieyku=125Zdjjbwb Note: ng/mL UI See Final Results Reference Range: Tjvwrz=591Gulmau test includes Codeine, Morphine, Hydromorphone, Hydrocodone.Opiates Positive [A ] UI Reference Range: Youobt=890Fewhwe test includes Codeine, Morphine, Hydromorphone, Hydrocodone.Codeine Negative UI Reference Range: Gdlqml=252Sojmehtz Negative UI Reference Range: Jxgwkl=818Kjmoqsafffjbd Negative UI Reference Range: Eisrzr=448Gmrnbtbvxlc Positive [A ] UI Reference Range: .Hydrocodone Conf, MS, UR 349 ng/mL UI Reference Range: Qpycnb=8553-Yamtuatlmzwbew, Urine Negative ng/mL UI Reference Range: Cutoff=10Oxycodone/Oxymorphone, Urine Negative ng/mL UI Reference Range: Aivlmg=[id number] includes Oxycodone and OxymorphonePCP, Urine Negative ng/mL UI Reference Range: Cutoff=25Methadone Screen, Urine Negative ng/mL UI Reference Range: Fzsswc=274Grbswfrlyvdg, Urine Negative ng/mL UI Reference Range: Edbejr=703Pthfbfre, Urine Negative ng/mL UI Reference Range: Cutoff=2.0Test includes Fentanyl and NorfentanylThis test was developed and its performance characteristicsdetermined by [employer]. It has not been cleared orapproved by the Food and Drug Administration.Tramadol Negative ng/mL UI Reference Range: Uomrqf=080Fotjkbxxrliya, Urine Negative ng/mL UI Reference Range: Cutoff=10Creatinine, Urine 36.9 mg/dL UI Reference Range: 20.0-300.0pH, Urine 6.1 UI Reference Range: 4.5-8.9Performed at: [facility] [[email or web address]] [place] - [address] [id number] [place], [place] [id number] Director: Erik Wallis PhD, Phone: [phone] at: [facility] [place] - [address] [id number] Director: Bharath Hawthorne PhD, Phone: [phone] Start: 10-18-[address] Marycarmen [...] 09-29-2024 Platelet mean volume determination Dr. Marycarmen oRdriguez DO Work Phone: Start: 09-20-2024 Blood count [...] w/le ast 12 lds w/i&r Fernanda Acuña [employer] Work Phone: Start: 08-18-2018 History of percutane ous transluminal coronary angioplasty History of percutaneous transluminal coronary angioplasty Dr. 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 Alexandr Mcclain Start: 08-13-2017 History of placement of stent for coronary artery disease History of coronary artery stent placement Dr. 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 Procedure aborted. 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-[id number]-Xv and Stent-Mid RCA x 2 Multi Link Mini Vision Rx Stent 4.0 x 28 mm 01/21/2006 Plan of Treatment Date Care Activity Detail Author Start: 12-03-2024 Electrocardiographic procedure [facility] Start: 12-02-2024 [facility] Start: 12-02-2024 End: 12-02-2024 Hospital admission, emergency, from emergency room, medical nature [facility] Start: 12-02-2024 [facility] Start: 12-02-2024 Patient discharge [facility] Start: 12-02-2024 Electrocardiographic procedure [facility] Start: 12-02-2024 Magnetic resonance angiography of head without contrast [facility] Start: 12-02-2024 Magnetic resonance angiography of neck without contrast [facility] Start: 12-02-2024 MRA Head vessels WO contrast [facility] Start: 12-02-2024 MRA Neck vessels WO contrast [facility] Start: 12-01-2024 Vital signs measurements [facility] Start: 12-01-2024 Aspiration precautions [facility] Start: 12-01-2024 Cardiac monitoring [facility] Start: 12-01-2024 Catheterization of vein [facility] Start: 12-01-2024 Consultation [facility] Start: 12-01-[address] [facility] Start: 12-01-2024 Elevation of head of bed [facility] Start: 12-01-2024 Exercises [facility] Start: 12-01-[address] [facility] Start: 12-01-2024 Oxygen therapy [facility] Start: 12-01-2024 Patient referral to dietitian [facility] Start: 12-01-2024 Referral to occupational therapist [facility] Start: 12-01-2024 Referral to service [facility] Start: 12-01-[address] [facility] Start: 12-01-2024 Telemedicine consultation with patient [facility] Start: 12-01-2024 Tobacco use cessation education [facility] Start: 12-01-2024 End: 12-01-2024 [facility] Start: 12-01-2024 [facility] Start: 12-01-2024 [facility] Start: 12-01-2024 Electrocardiographic procedure [facility] Start: 12-01-2024 Continuous positive airway pressure ventilation treatment [facility] Start: 12-01-2024 US Heart [facility] Start: 12-01-2024 Complete blood count [facility] Start: 11-30-2024 End: 11-30-2024 [facility] Start: 11-30-2024 Following clinical pathway protocol [facility] Start: 11-30-2024 Ambulation without limitation [facility] Start: 11-30-2024 Assessment of risk of venous thromboembolism [facility] Start: 11-30-2024 Insertion of catheter into peripheral vein [facility] Start: 11-30-2024 Measuring intake and output [facility] Start: 11-30-2024 Providing care according to standard [facility] Start: 11-30-2024 Referral to service [facility] Start: 11-30-2024 Care regimes management [facility] Start: 11-30-2024 Complete blood count [facility] Start: 11-30-2024 Elevation of head of bed [facility] Start: 11-30-2024 Admission procedure [facility] Start: 11-30-2024 Cardiac monitoring [facility] Start: 11-30-2024 Cardiac rehabilitation - phase 1 [facility] Start: 11-30-2024 Cardiac rehabilitation - phase 2 [facility] Start: 11-30-2024 Dietary regime [facility] Start: 11-30-2024 Log roll [facility] Start: 11-30-2024 End: 11-30-[address] [facility] Start: 11-30-2024 Oxygen therapy [facility] Start: 11-30-2024 Patient discharge [facility] Start: 11-30-2024 Provision of activity privileges [facility] Start: 11-30-2024 Pulse taking [facility] Start: 11-30-2024 Hospital admission, emergency, from emergency room, medical nature [facility] Start: 11-30-2024 Electrocardiographic procedure [facility] Start: 11-30-2024 End: 11-30-2024 [facility] Start: 11-30-2024 Partial thromboplastin time, activated [facility] Start: 11-30-2024 Prothrombin time [facility] Start: 11-28-2024 [facility] Start: 11-28-2024 Patient discharge [facility] Start: 11-28-2024 Complete blood count [facility] Start: 11-27-2024 Following clinical pathway protocol [facility] Start: 11-27-2024 Elevation of head of bed [facility] Start: 11-27-2024 Dietary regime [facility] Start: 11-27-2024 Log roll [facility] Start: 11-27-2024 Provision of activity privileges [facility] Start: 11-27-2024 End: 11-27-2024 [facility] Start: 11-27-2024 Admission procedure [facility] Start: 11-27-2024 Cardiac monitoring [facility] Start: 11-27-2024 Cardiac rehabilitation - phase 1 [facility] Start: 11-27-2024 Cardiac rehabilitation - phase 2 [facility] Start: 11-27-[address] [facility] Start: 11-27-2024 Oxygen therapy [facility] Start: 11-27-2024 Pulse taking [facility] Start: 11-27-2024 Continuous positive airway pressure ventilation treatment [facility] Start: 11-27-2024 Inhalation therapy procedure [facility] Start: 11-26-2024 [facility] Start: 11-26-2024 [facility] Start: 11-22-2024 Evaluation of diagnostic study results [facility] Start: 10-25-2024 Evaluation of diagnostic study results [facility] Start: 07-25-2024 Walking distance 6 minutes [facility] Start: 07-17-2024 Measurement of respiratory function [facility] Start: 12-21-2022 Patient discharge [facility] Start: 10-05-2022 Measurement of respiratory function [facility] Start: 09-21-2022 Patient discharge [facility] Start: 09-20-[address] [facility] Start: 09-18-2022 Following clinical pathway protocol [facility] Start: 09-17-2022 Aspiration precautions [facility] Start: 09-17-2022 Assessment of risk of venous thromboembolism [facility] Start: 09-17-2022 Cardiac monitoring [facility] Start: 09-17-2022 Care regimes management [facility] Start: 09-17-2022 Catheterization of vein [facility] Start: 09-17-2022 Continuous positive airway pressure ventilation treatment [facility] Start: 09-17-[address] [facility] Start: 09-17-2022 Elevation of head of bed [facility] Start: 09-17-2022 Exercises [facility] Start: 09-17-2022 Fall prevention [facility] Start: 09-17-2022 Implementation of planned interventions [facility] Start: 09-17-2022 Inhalation therapy procedure [facility] Start: 09-17-2022 Insertion of catheter into peripheral vein [facility] Start: 09-17-2022 Introduction of urinary catheter [facility] Start: 09-17-2022 Measuring intake and output [facility] Start: 09-17-[address] [facility] Start: 09-17-2022 Oxygen therapy [facility] Start: 09-17-2022 End: 09-18-2022 Patient referral to dietitian [facility] Start: 09-17-2022 Providing care according to standard [facility] Start: 09-17-2022 Provision of activity privileges [facility] Start: 09-17-2022 Referral to occupational therapist [facility] Start: 09-17-2022 Referral to service [facility] Start: 09-17-[address] [facility] Start: 09-17-2022 Tobacco use cessation education [facility] Start: 09-17-2022 [facility] Start: 09-17-2022 Admission procedure [facility] Start: 09-01-2022 Patient discharge [facility] Start: 08-31-2022 Patient referral [facility] Work Phone: Start: 08-31-2022 Following clinical pathway protocol [facility] Start: 08-31-2022 Pulse taking [facility] Start: 08-31-2022 Cardiac monitoring [facility] Start: 08-31-2022 Cardiac rehabilitation - phase 1 [facility] Start: 08-31-2022 Cardiac rehabilitation - phase 2 [facility] Start: 08-31-[address] [facility] Start: 08-31-2022 Oxygen therapy [facility] Start: 08-31-2022 Patient discharge [facility] Start: 08-31-2022 Taking patient vital signs [facility] Start: 08-31-2022 Vascular disease risk assessment [facility] Start: 08-31-2022 Vital signs measurements [facility] Start: 08-31-2022 End: 08-31-2022 [facility] Start: 08-31-2022 Admission procedure [facility] Start: 11-16-2021 [facility] Work Phone: Start: 01-10-2021 End: 01-10-2021 Admission to same day surgery center 01/10/2021 Surgery Cardiology Eladio Ingram MD [address] [facility] [address] [place] [address] Left Heart Cath Possible PTCA/Stent [facility] [employer] Comment on above: Left Heart Cath Possible PTCA/Stent Start: 01-10-2021 Subsequent hospital visit by physician 01/10/2021 Hospital Encounter Eladio Ingram MD [address] [facility] [address] [place] [address] [facility] Procedural Care Unit Start: 01-01-2021 Influenza vaccination [facility] Start: 12-26-2020 End: 12-26-2020 Patient encounter procedure 12/26/2020 Office Visit Cardiology Marycarmen Rodriguez, [address] [place] [address] [phone] Eladio Ingram MD [address] [facility] [address] [place] [address] [phone] [facility] Office Start: 10-15-2020 End: 10-15-2020 Patient encounter procedure 10/15/2020 Appointment Cardiology Eladio Ingram MD [address] [facility] [address] [place] [address] [phone] [facility] Start: 10-09-2020 End: 10-09-2020 Patient encounter procedure 10/09/2020 Office Visit Cardiology Fernanda Acuña, [employer] [address] [place] [address] [phone] [facility] Office Start: 11-05-2017 Prostate specific antigen measurement PSA Level [facility] Start: 06-01-2017 HEMOGLOBIN A1C HEMOGLOBIN A1C [facility] Work Phone: Start: 06-01-2017 Hemoglobin A1c measurement A1C [facility] Start: 06-01-2017 Hemoglobin A1c/Hemoglobin.total mass fraction (Bld) HEMOGLOBIN A1C [facility] Work Phone: Start: 01-01-2017 SEQUENTIAL INFLUENZA VACCINE (#1) SEQUENTIAL INFLUENZA VACCINE (#1) [facility] Work Phone: Start: 12-17-2016 Ambulatory 12/17/2016 Office Visit Cardiology Eladio Ingram MD [address] [facility] [address] [place] [address] [phone] [facility] Start: 2010 ABDOMINAL AORTIC ULTRASOUND ABDOMINAL AORTIC ULTRASOUND [facility] Work Phone: Start: 2010 Fall risk assessment Falls Risk Assessment [facility] Start: 2010 PNEUMOCOCCAL VACCINE AGE 65+ (1 of 2 - PCV13) PNEUMOCOCCAL VACCINE AGE 65+ (1 of 2 - PCV13) [facility] Work Phone: Start: 2005 Zoster vacc, sc ZOSTER VACCINE [facility] Work Phone: Start: 08-01-1995 Administration of herpes zoster vaccine Zoster Vaccines (1 of 2) [facility] Start: 08-01-1995 Screening for malignant neoplasm of colon [facility] Start: 08-01-1963 Hepatitis C screening Hepatitis C Screening [facility] Start: 1957 COVID-19 Vaccine (1) COVID-19 Vaccine (1) [facility] Start: 08-01-1955 3 comp foot exam completed FOOT EXAM [facility] Work Phone: Start: 08-01-1955 Albumin Test strip detection limit <= 20 mg/L mass conc (U) URINE MICROALBUMIN [facility] Work Phone: Start: 08-01-1955 Diabetic foot examination Foot Exam [facility] Start: 08-01-1955 Microalbumin measurement, urine, quantitative Urine Microalbumin [facility] Start: 08-01-1955 Ophthalmic examination and evaluation OPHTHALMOLOGY EXAM [facility] Start: 08-01-1955 FOOT EXAM FOOT EXAM [facility] Work Phone: Start: 08-01-1955 OPHTHALMOLOGY EXAM OPHTHALMOLOGY EXAM [facility] Work Phone: Start: 08-01-1955 URINE MICROALBUMIN URINE MICROALBUMIN [facility] Work Phone: Start: 08-01-1951 Pneumococcal Vaccine: Age 65+ (1 of 2 - PPSV23) Pneumococcal Vaccine: Age 65+ (1 of 2 - PPSV23) [facility] Start: 1948 History and physical examination, annual for health maintenance Wellness Visit [facility] Start: 1945 Colonoscopy COLONOSCOPY [facility] Work Phone: Start: 1945 Tetanus vaccination Tetanus: Every 10yrs [facility] Start: 1945 Colonoscopy COLONOSCOPY [facility] Work Phone: Start: 1945 End: 1945 HEPATITIS C SCREENING HEPATITIS C SCREENING [facility] Work Phone: Start: 1945 End: 1945 TETANUS EVERY 10 YR TETANUS EVERY 10 YR [facility] Work Phone: Alanine aminotransfe rase [Enzymatic activity/volume] in Serum or Plasma [facility] Alanine aminotransfe rase [Enzymatic activity/volume] in Serum or Plasma [facility] Albumin [Mass/volume ] in Serum or Plasma [facility] Albumin [Mass/volume ] in Serum or Plasma [facility] Alkaline phosphatase [Enzymatic activity/volume] in Serum or Plasma [facility] Alkaline phosphatase [Enzymatic activity/volume] in Serum or Plasma [facility] Anion gap in Serum or Plasma [facility] Anion gap in Serum or Plasma [facility] End: 12-26-2021 Basic metabolic 1999 panel - Serum or Plasma Basic metabolic panel Lab Routine Atherosclerosis of [place] coronary artery with angina pectoris, 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) Essential hypertension 1 Occurrences starting 12/26/2020 until 12/26/2021 [facility] Comment on above: 1 Occurrences starting 12/26/2020 until 12/26/2021 Basic metabolic 1999 panel - Serum or Plasma Basic metabolic panel Lab Routine Atherosclerosis of [place] coronary artery with angina pectoris, 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) Essential hypertension 12/26/2020 11:28 AM EDT [facility] Basic metabolic 2007 panel with ionized calcium - Serum or Plasma [facility] Basic metabolic 2007 panel with ionized calcium - Serum or Plasma [facility] End: 12-17-2017 Basic metabolic panel [AGGREGATE] Basic metabolic panel Routine MATTHEW (obstructive sleep apnea) Coronary artery disease involving [place] coronary artery of [place] heart without angina pectoris 1 Occurrences starting 12/17/2016 until 12/17/2017 [facility] Work Phone: Bilirubin, total measurement [facility] Bilirubin, total measurement [facility] Blood chemistry [facility] BUN/Creatinine ratio [facility] BUN/Creatinine ratio [facility] Calcium [Mass/volume ] in Serum or Plasma [facility] Calcium [Mass/volume ] in Serum or Plasma [facility] Carbon dioxide, tota l [Moles/volume] in Central venous blood [facility] Carbon dioxide, tota l [Moles/volume] in Central venous blood [facility] Catheterization of l eft heart [facility] Catheterization of l eft heart [facility] Catheterization of l eft heart [facility] CBC W Auto Different ial panel - Blood [facility] CBC W Auto Different ial panel - Blood [facility] End: 12-26-2021 Complete blood count with white cell differential, manual CBC and differential Lab Routine Atherosclerosis of [place] coronary artery with angina pectoris, 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) Essential hypertension 1 Occurrences starting 12/26/2020 until 12/26/2021 [facility] Work Phone: Comment on above: 1 Occurrences starting 12/26/2020 until 12/26/2021 Complete blood count with white cell differential, manual CBC and differential Lab Routine Atherosclerosis of [place] coronary artery with angina pectoris, 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) Essential hypertension 12/26/2020 11:28 AM EDT [facility] Creatinine [Mass/vol ume] in Serum or Plasma [facility] Creatinine [Mass/vol ume] in Serum or Plasma [facility] End: 01-10-2022 CT Angiogram Aorta Chest Abdomen Pelvis CT Angiogram Aorta Chest Abdomen Pelvis Imaging Routine Coronary artery disease involving [place] coronary artery 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 (HCC) 1 Occurrences starting 01/10/2021 until 01/10/2022 [facility] Work Phone: Comment on above: 1 Occurrences starting 01/10/2021 until 01/10/2022 End: 12-04-2021 Echocardiography Echocardiogram complete Echocardiography Routine Shortness of breath 1 Occurrences starting 10/04/2020 until 12/04/2021 [facility] Comment on above: 1 Occurrences starting 10/04/2020 until 12/04/2021 Erythrocyte mean cor puscular volume determination [facility] Erythrocyte mean cor puscular volume determination [facility] Erythrocyte mean cor puscular volume determination [facility] Glucose [Mass/volume ] in Serum or Plasma [facility] Glucose [Mass/volume ] in Serum or Plasma [facility] Hematocrit [Volume F raction] of Blood [facility] Hematocrit [Volume F raction] of Blood [facility] Hematocrit [Volume F raction] of Blood [facility] Hemoglobin [Mass/vol ume] in Blood [facility] Hemoglobin [Mass/vol ume] in Blood [facility] Hemoglobin [Mass/vol ume] in Blood [facility] INR in Blood by Coag ulation assay [facility] LEFT HEART CATH POSS IBLE PTCA/STENT LEFT HEART CATH POSSIBLE PTCA/STENT [facility] Leukocytes [#/volume ] in Blood [facility] Leukocytes [#/volume ] in Blood [facility] Leukocytes [#/volume ] in Blood [facility] End: 12-17-2017 Magnesium Magnesium Routine MATTHEW (obstructive sleep apnea) Coronary artery disease involving [place] coronary artery of [place] heart without angina pectoris 1 Occurrences starting 12/17/2016 until 12/17/2017 [facility] Work Phone: Mean corpuscular hem oglobin concentration determination [facility] Mean corpuscular hem oglobin concentration determination [facility] Mean corpuscular hem oglobin concentration determination [facility] Mean corpuscular hem oglobin determination [facility] Mean corpuscular hem oglobin determination [facility] Mean corpuscular hem oglobin determination [facility] Measurement of renal function [facility] Measurement of renal function [facility] Measurement of respi ratory function [facility] Work Phone: Natriuretic peptide. B prohormone N-Terminal [Mass/volume] in Serum or Plasma [facility] Natriuretic peptide. B prohormone N-Terminal [Mass/volume] in Serum or Plasma [facility] NM Heart Views W str ess and W radionuclide IV [facility] Patient Education [facility] Work Phone: Patient referral [facility] Work Phone: Platelets [#/volume] in Blood [facility] Platelets [#/volume] in Blood [facility] Platelets [#/volume] in Blood [facility] Potassium measurement [facility] Potassium measurement [facility] Red blood cell count [facility] Red blood cell count [facility] Red blood cell count [facility] Red cell distributio n width determination [facility] Red cell distributio n width determination [facility] Red cell distributio n width determination [facility] Serum chloride measurement [facility] Serum chloride measurement [facility] Sodium measurement [facility] Sodium measurement [facility] Total protein measurement [facility] Total protein measurement [facility] Troponin T.cardiac [Mass/volume] in Serum or Plasma by High sensitivity method [facility] Troponin T.cardiac [Mass/volume] in Serum or Plasma by High sensitivity method [facility] Troponin T.cardiac [Mass/volume] in Serum or Plasma by High sensitivity method [facility] Troponin T.cardiac [Mass/volume] in Serum or Plasma by High sensitivity method [facility] Troponin T.cardiac [Mass/volume] in Serum or Plasma by High sensitivity method [facility] Urea nitrogen [Mass/ volume] in Serum or Plasma [facility] Urea nitrogen [Mass/ volume] in Serum or Plasma [facility] Heart [facility] XR Chest PA and Lateral [facility] Immunizations Immunization Date Immunization Notes Care Provider Fa cility 11-26-2024 tetanus toxoid, redu terry diphtheria toxoid, and acellular pertussis vaccine, adsorbed Dr. Marycarmen Rodriguez DO Work Phone: [facility] 02-19-2023 influenza, injectabl e, quadrivalent, preservative free Dr. Marycarmen Rodriguez DO Work Phone: [facility] 01-27-2022 influenza, injectabl e, quadrivalent, preservative free Dr. Marycarmen Rodriguez DO Work Phone: [facility] 09-04-2021 Covid (Pfizer) Dr. Marycarmen hough DO Work Phone: [facility] 02-24-2021 Covid (Pfizer) Dr. Marycarmen hough DO Work Phone: [facility] 06-27-2020 Covid (Pfizer) Dr. Marycarmen hough DO Work Phone: [facility] 05-31-2020 Covid (Pfizer) Dr. Marycarmen hough DO Work Phone: [facility] 02-20-[address] Marycarmen Rodriguez Work Phone: [facility] 02-14-[address] Marycarmen Rodriguez Work Phone: [facility] 01-31-[address] Marycarmen Rodriguez Work Phone: [facility] 04-12-2017 influenza, high dose seasonal, preservative-free Dr. Marycarmen Rodriguez DO Work Phone: [facility] 11-29-2016 HEMOGLOBIN A1C [facility] Work Phone: 08-16-2014 pneumococcal polysaccharide vaccine, [address] Marycarmen Rodriguez DO Work Phone: [facility] 08-05-2005 hepatitis A vaccine, pediatric/adolescent dosage, [address] Marycarmen Rodriguez DO Work Phone: [facility] 01-14-2005 hepatitis A vaccine, pediatric/adolescent dosage, [address] Marycarmen Rodriguez DO Work Phone: [facility] 01-14-2005 TD(adult) unspecifie d formulation Dr. Marycarmen Rodriguez DO Work Phone: [facility] Payers Date Payer Category Payer Self-pay [id number] 2019 Unknown [id number] 1. [id number] 2019 Unknown [id number] 2012 Unknown [id number] 2.1 6.840.1.632294.3.249.13 2010 Medicare [id number] 2.16 .840.1.095885.3.249.13 2010 Medicare [id number] 1.2 .840.048033.1.13.385.2.7.3.085838.315 2010 Medicare [id number] 2010 Medicare [id number] 1945 Unknown [id number] 2.16. 840.1.490326.3.579.2.594 1945 Unknown [id number] 2.16. 840.1.378494.3.579.2.902 1945 Unknown [id number] 2.16 840.1.675188.3.579.2.903 1945 Unknown [id number] 2.16 840.1.564704.3.579.2.903 1945 Unknown [id number] 2.16 840.1.175838.3.579.2.903 1945 Unknown [id number] 2.16. 840.1.536376.3.579.2.903 1945 Unknown [id number] 2.16 840.1.471299.3.579.2.903 1945 Unknown [id number] 2.16. 840.1.194868.3.579.2.903 1945 Unknown [id number] 2.16. 840.1.550387.3.579.2.903 1945 Unknown [id number] 2.16. 840.1.351857.3.579.2.903 Unknown [id number] 2.16.8 40.1.826041.3.579.2.462 Unknown [id number] 2.16.8 40.1.818596.3.579.2.462 Unknown [id number] 2.16.8 40.1.913029.3.579.2.462 Unknown [id number] 2.16.8 40.1.837205.3.579.2.462 Unknown [id number] 2.16.8 40.1.850925.3.579.2.462 Unknown [id number] 2.16.8 40.1.789710.3.579.2.462 Unknown [id number] 2.16.8 40.1.152548.3.579.2.462 Unknown [id number] 2.16.8 40.1.885631.3.579.2.462 Unknown [id number] 2.16.8 40.1.787073.3.579.2.462 Unknown [id number] 2.16.8 40.1.621732.3.579.2.462 Unknown [id number] 2.16.8 40.1.394978.3.579.2.462 Unknown [id number] 2.16.8 40.1.293794.3.579.2.462 Unknown [id number] 2.16.8 40.1.328287.3.579.2.462 Unknown [id number] 2.16.8 40.1.107754.3.579.2.462 Unknown [id number] 2.16.8 40.1.836530.3.579.2.462 Unknown [id number] 2.16.8 40.1.598300.3.579.2.462 Unknown [id number] 2.16.8 40.1.820312.3.579.2.462 Unknown [id number] 2.16.8 40.1.695907.3.579.2.462 Unknown [id number] 2.16.8 40.1.662678.3.579.2.462 Unknown [id number] 2.16.8 40.1.610759.3.579.2.462 Unknown [id number] 2.16.8 40.1.522864.3.579.2.462 Unknown [id number] 2.16.8 40.1.633792.3.579.2.462 Unknown [id number] 2.16.8 40.1.733418.3.579.2.462 Unknown [id number] 2.16.8 40.1.085854.3.579.2.462 Unknown [id number] 2.16.8 40.1.307958.3.579.2.462 Unknown [id number] 2.16.8 40.1.438933.3.579.2.462 Unknown [id number] 2.16.8 40.1.795470.3.579.2.462 Unknown [id number] 2.16.8 40.1.475482.3.579.2.462 Unknown [id number] 2.16.8 40.1.157200.3.579.2.462 Unknown [id number] 2.16.8 40.1.850690.3.579.2.462 Unknown [id number] 2.16.8 40.1.530457.3.579.2.462 Unknown [id number] 2.16.8 40.1.255452.3.579.2.462 Unknown [id number] 2.16.8 40.1.398553.3.579.2.462 Unknown [id number] 2.16.8 40.1.541225.3.579.2.462 Unknown [id number] 2.16.8 40.1.565148.3.579.2.462 Unknown [id number] 2.16.8 40.1.442291.3.579.2.462 Unknown [id number] 2.16.8 40.1.667129.3.579.2.462 Unknown [id number] 2.16.8 40.1.003406.3.579.2.462 Unknown [id number] 2.16.8 40.1.248823.3.579.2.462 Unknown [id number] 2.16.8 40.1.221432.3.579.2.462 Unknown [id number] 2.16.8 40.1.786886.3.579.2.462 Unknown [id number] 2.16.8 40.1.554692.3.579.2.462 Unknown [id number] 2.16.8 40.1.011557.3.579.2.462 Unknown [id number] 2.16.8 40.1.497144.3.579.2.462 Social History Date Type Detail Facility Start: 12-17-2016 End: 12-02-2024 Tobacco smoking status NHIS Former smoker [facility] Start: 12-17-2016 End: 10-09-2020 Cigarettes smoked current (pack per day) - Reported [facility] Work Phone: Start: 1945 Sex Assigned At Not on file [facility] Work Phone: Start: 12-17-2016 End: 10-09-2020 Tobacco use and exposure Never used [facility] Start: 12-17-2016 End: 01-10-2021 Alcohol intake Current non-drinker of alcohol (finding) [facility] Start: 03-10-2016 Tobacco Comment quit 25+ yrs ago [facility] Exposure to SARS-CoV -2 (event) Not sure [facility] Start: 08-01-2021 End: 12-21-2022 Tobacco smoking status NHIS Unknown if ever smoked [facility] Start: 01-12-2020 None [facility] Start: 01-12-2020 Spouse/ Signif icant Other [facility] Start: 11-18-2020 Non-smoker [facility] Start: 1945 Sex Assigned At Male [facility] Start: 07-13-2024 End: 08-08-2024 Sex Male (finding) [facility] Medical Equipment Procedure Code Equipment Code Equipment Origin al Text Equipment Identifier Dates Stent 3.50 X 23 [facility] Xpedition Rx - [id number] FDA Start: 01-04-2015 [id number] 0)[id number] FDA Start: 08-31-2022 [id number] [id number] FDA Start: 08-31-2022 ()[id number] 0)[id number] FDA Start: 11-27-2024 ([id number] 0)[id number] FDA Start: 11-30-2024 ()[id number] 0)[id number] FDA Start: 11-30-2024 Goals Date Patient Goal Desired Activity /State Functional Status Date Assessment Result Facility 12-02-2024 Functional status Bedrest [facility] Work Phone: 11-28-2024 Functional status Ambulates [facility] Work Phone: 11-27-2024 Functional status [facility] Work Phone: 09-21-2022 Functional status Chair [facility] Work Phone: 09-20-2022 Functional status Assistive Ning lauro [facility] Work Phone: 09-01-2022 Functional status Activity Ability Indepe ndent [facility] Work Phone: 08-31-2022 Functional status Ambulates [facility] Work Phone: Mental Status Date Assessment Result Facility 12-02-2024 Cognitive function Voice/Name [facility] Work Phone: 12-02-2024 Cognitive function Voice/Name [facility] Work Phone: 11-28-2024 Cognitive function Voice/Name [facility] Work Phone: 07-28-2025 Cognitive function Voice/Name [facility] Work Phone: 09-21-2022 Cognitive function Voice/Name [facility] Work Phone: 09-01-2022 Cognitive function Appropriate;Cooperativ e [facility] Work Phone: 11-16-2021 Cognitive function Voice/Name [facility] Work Phone: 06-10-2021 Cognitive function Level Of Cons ciousness Awake;Alert;Appropriate [facility] Work Phone: Clinical Notes 06-25-2020 to 12-02-2024 Note Date & Type Note Facility 12-02-2024 Consult note Note Date/Time December 02, 2024 12:23pm [facility] Medical Records Department [address] [place] [address] Consultation - Neurology 12/02/24 1207 MR#: [id number] Acct: [id number] Name: ERIBERTO RICO Rep #:[id number] : 1945 79 From: Jamar Hooker PCP: Dr. Marycarmen Rodriguez, DO Status:ADM IN Location: [place] [address] Assessment and Plan: Neuro Assessment/Plan ERIBERTO RICO [...] questions or concerns. Stroke to sign off. [facility] Medical History (Updated 12/01/24 @ [...] kidney disease, stage 3 Atherosclerotic heart disease [place] coronary artery w/angina pectoris Type 2 diabetes [...] 78.9 H, Lymph % (Auto) 7.6 L, [place] % (Auto) 12.0 H, Eos % (Auto) [...] abnormality. 2. Age-related senescent changes. Reading Location: [facility] Active Medications Active Medications Active [...] mls @ 15 mls/hr 11/30/24 17:25 IV .[id number] PRN Saline Flush Sodium Chloride 250 mls @ 15 mls/hr 11/30/24 17:25 IV .[id number] PRN Additional IVPB Infusion Insulin Human Lispro 0 unit 11/30/24 22:00 12/02/24 06:30 Insulin Lispro 100 Unit/Ml Insuln.Pen SC Not Given ACHS [facility] Protocol Labetalol HCl 10 [...] 10:00 Metolazone 2.5 Mg Tablet PO DAILY [facility] Protocol Metoprolol Succinate 25 [...] Glucerna Shake 120 Ml Liquid PO TIDCM [facility] Ondansetron HCl 4 mg [...] or with change in RN caregiver Freq: [id number] Protocol: Activity Type Activity Date Activity User E-sign Co-sign Detail Recorded Client Recorded Date Recorded By Document 12/01/24 20:15 CD [id number] 12/01/24 20:28 CD 12/01/24 20:15 [facility] Stroke [...] and with change in RN caregiver. Freq: [id number] Protocol: Activity Type Activity Date Activity User E-sign Co-sign Detail Recorded Client Recorded Date Recorded By Document 12/02/24 10:00 TSTIKA [id number] 12/02/24 10:20 TSTIKA 12/02/24 10:00 NIH Stroke [...] Hay MD; Dr. Marycarmen Rodriguez, DO~ [facility] Work Phone: 1(991) 721-514408-02-2025 Discharge summary Author Rasheed Canela [facility] Note Date/Time December 02, 2024 8:5 3pm [facility] Medical Records Department [address] [place] [address] Emergency Department Summary 12/02/24 MR#: [id number] Acct: [id number] Name: ERIBERTO RICO Rep #:[id number] : [...] EKG changes consistent with a ST elevation MO. He had 3 to 4 mm of [...] Prior Similar Symptoms: Yes and With Prior MO CVD Risk Factors: Positive for Hypertension, Diabetes and Hypercholesterolemia [facility] Medical History Anemia Diabetes mellitus Chronic kidney [...] kidney disease, stage 3 Atherosclerotic heart disease [place] coronary artery w/angina pectoris Type 2 diabetes [...] was reviewed. Spoke with Dr. Simpson the swing grinder. He was made aware of patient's history, EKG findings and prehospital treatment. Lab Data Attestation: I reviewed the patient's lab results. Lab results narrative: EKG was not repeated since prehospital EKG revealed ST elevation MO with reciprocal changes. CBC reveals mild anemia [...] 76.7 H Lymph % (Auto) 8.9 L [place] % (Auto) 12.7 H Eos % (Auto) [...] healthcare provider: Hospitalist (Dr. Alex Handley) and Retail Pharmacy Merchandiser (scrap yard worker) Critical Care Time Critical Care Time: Yes Critical care time (excluding procedures): 30-74 minutes (15), Including time spent: (History, physical, documentation, prehospital med direction, discussion with , review of prior records and independent rotation of EKG), Discussing w/Patient &/or Family/Admissions Nurse (Spoke with who informing that he just left the hospital this afternoon to attend his granddaughter's wedding.), Discussing w/Consultants (scrap yard worker and hospitalist) and Arranging Admission or Transfer Discharge Plan Dx/Rx/DC Orders Clinical Impression: Acute ST elevation myocardial infarction (STEMI) of inferior wall, Obstructive sleep apnea, Obesity, Chronic kidney disease, Diabetes mellitus, Hyperlipidemia Disposition Disposition: Acute Care Hospital [facility] What to do if you have Problems For any increased pain, shortness of breath, bleeding, nausea or vomiting, chestpain, or any unexpected problems, contact your Primary Care Provider. Call [facility] ([phone]) or report to the closest Emergency Room. Call 911 if necessary. 12/02/242052 <Electronically signed by Rasheed Canela MD> Cosigner Signature (if applicable): CC: Dr. Marycarmen Rodriguez, DO ~ [facility] Work Phone: 1(475) 711-155208-02-2025 Hospital Discharge instructionsAdditional Instructions 1. It is very important to not miss any doses of your ticagrelor (Brilinta) and aspirin. Please take these as prescribed with no missed doses. If you miss doses you could clot off your stents. Date of Discharge: 12/02/24[facility] Work Phone: 1(809) 456-642308-02-2025 [facility]08-01-2025 Progress note Author Abraham Ridley [facility] Note Date/Time December 01, 2024 8:2 6pm [facility] Medical Records Department [address] [place] [address] Progress Note - Hospitalist 12/01/242020 MR#: [id number] Acct: [id number] Name: ERIBERTO RICO Rep #:[id number] : 1945 79 From: Abraham inman DO PCP: Dr. Marycarmen Rodriguez, DO Status:ADM IN Location: [place] [address] Hospitalist Note Stroke alert called around 7 PM. Last known well 6:55 PM. Patient reported to [facility] that he had left facial numbness [...] Cosigner Signature (if applicable): CC: ~ [facility]igned [facility] Work Phone: 1(339) 264-387508-01-2025 Radiology Diagnostic study [facility]08-01-2025 Progress note Author Nickie Danielson [facility] Note Date/Time December 01, 2024 3:5 0pm [facility] Medical Records Department [address] [place] [address] Progress Note - Hospitalist 12/01/24712 MR#: [id number] Acct: [id number] Name: ERIBERTO RCIO Rep #:[id number] : 1945 79 From: Nickie Danielson DO PCP: Dr. Marycarmen Rodriguez, DO Status:ADM IN Location: [place] [address] Reason for Visit Chief Complaint: STEMI Subjective [...] 80.9 H, Lymph % (Auto) 10.1 L, [place] % (Auto) 7.7, Eos % (Auto) 0.4, Baso % (Auto) 0.2, Absolute Neuts (auto) 15.5 H, Absolute Lymphs (auto) 1.93, Nucleated RBC % 0.1, PT 16.1 H, INR 1.3, APTT 112.9 H*, Sodium 135, Potassium 4.4, Chloride 98, Carbon Bjeikcg58.3 L, Anion Gap 19 H, BUN 45 [...] evidence of acute pulmonary disease. Reading Location: [facility] Physical Exam Const alert, oriented x3, [...] subcu heparin Charges/Coding Visit Charges Inpatient E&M: 54365 [facility] Hosp L2 12/01/24 7313 <Electronically signed by Nickie Danielson DO> Cosigner Signature (if applicable): CC: ~ [facility]igned [facility] Work Phone: 1([phone]) 652-304208-01-2025 Progress note Author Marcin Araujo [facility] Note Date/Time December 01, 2024 7:3 7am [facility] Medical Records Department [address] [place] [address] Progress Note - Cardiology 12/01/24 0734 MR#: [id number] Acct: [id number] Name: ERIBERTO RICO Rep #:[id number] : [...] 80.9 H, Lymph % (Auto) 10.1 L, [place] % (Auto) 7.7, Eos % (Auto) 0.4, Baso % (Auto) 0.2, Absolute Neuts (auto) 15.5 H, Absolute Lymphs (auto) 1.93, Nucleated RBC % 0.1, PT 16.1 H, INR 1.3, APTT 112.9 H*, Sodium 135, Potassium 4.4, Chloride 98, Carbon Dhrfukf68.3 L, Anion Gap 19 H, BUN 45 [...] 80.9 H, Lymph % (Auto) 10.1 L, [place] % (Auto) 7.7, Eos % (Auto) 0.4, [...] evidence of acute pulmonary disease. Reading Location: [facility] Physical Exam Const alert, oriented x3 [...] Cosigner Signature (if applicable): CC: ~ [facility]igned [facility] Work Phone: 1(888) 565-420307-31-2025 Discharge summary Author Isael Bernabe [facility] Note Date/Time November 30, 2024 9:35 pm [facility] Medical Records Department [address] [place] [address] Emergency Department Summary 11/30/24 MR#: [id number] Acct: [id number] Name: ERIBERTO RICO Rep #:[id number] : [...] was sent, they administeredaspirin, Brilinta, and heparin. [facility] Medical History Diabetes mellitus Chronic kidney [...] kidney disease, stage 3 Atherosclerotic heart disease [place] coronary artery w/angina pectoris Type 2 diabetes [...] laboratory work that was requested by the Industrial Conveyor Belt Repairer. Does not have elevation of his white [...] 80.9 H Lymph % (Auto) 10.1 L [place] % (Auto) 7.7 Eos % (Auto) 0.4 [...] (STEMI) myocardial infarction Disposition Disposition: Acute Care [facility] Discharge Date/Time: 11/30/24 15:21 What to do if you have Problems For any increased pain, shortness of breath, bleeding, nausea or vomiting, chestpain, or any unexpected problems, contact your Primary Care Provider. Call [facility] ([phone]) or report to the closest Emergency Room. Call 911 if necessary. 11/30/242134 <Electronically signed by Isael Bernabe MD> Cosigner Signature (if applicable): CC: Dr. Marycarmen Rodriguez, DO ~ [facility]igned [facility] Work Phone: 1(614) 544-155107-31-2025 Progress note Author Isael Bernabe [facility] Note Date/Time November 30, 2024 9:33 pm [facility] Medical Records Department [address] [facility] [place] [address] Quality Report 11/30/241604 MR#: [id number] Acct: [id number] Name: ERIBERTO RICO Rep #:[id number] : [...] applicable): Date Donald Bill CC: ~ Signed [facility] Work Phone: 1([phone]) 772-306407-31-2025 History and physical note Author Abraham Ridley [facility] Note Date/Time November 30, 2024 9:30 pm [facility] Medical Records Department [address] [place] [address] H&P Exam - Hospitalist 11/30/24 1705 MR#: [id number] Acct: [id number] Name: ERIBERTO RICO Rep #:[id number] : 1945 79 From: Abraham inman DO PCP: Dr. Marycarmen Rodriguez, DO Status:ADM IN Location: ICU CVICU20 3-1 HPI - General General Date of Admission: 11/30/24 Date of Service: 11/30/24 Chief Complaint: STEMI HPI Narrative ERIBERTO RICO, is a 79 M who presented to [facility] on 11/30/2024 as a STEMI alert. Follows with [place] [facility]ology with complex CAD history, see office [...] STEMI. He was taken emergently to the Industrial Conveyor Belt Repairer and coronary angiography revealed a subacute stent [...] room air. No other acute concerns currently. [facility] Medical History Diabetes mellitus Chronic [...] kidney disease, stage 3 Atherosclerotic heart disease [place] coronary artery w/angina pectoris Type 2 diabetes [...] 80.9 H, Lymph % (Auto) 10.1 L, [place] % (Auto) 7.7, Eos % (Auto) 0.4, [...] Patient is a 79-year-old male who presented [facility] ED on 11/30/2024 as [...] with hyperglycemia: Blood glucose 328 on admit. EwubY6h from 2022 was 7.7%. Repeat A1c ordered. [...] 75 minutes. Charges/Coding Visit Charges Inpatient E&M: 58868 Init Hosp L3 11/30/242129 <Electronically signed by Abraham Ridely DO> Cosigner Signature (if applicable): CC: Dr. Abraham Ridley DO; Dr. Marycarmen Rodriguez DO~ [facility]igned [facility] Work Phone: 1([phone]) 516-534407-31-2025 Radiology Diagnostic study [facility]2025 Consult note Author Jose Hay [facility] Note Date/Time November 30, 2024 4:51 pm [facility] Medical Records Department [address] [place] [address] Consultation - Cardiology 11/30/24 1642 MR#: [id number] Acct: [id number] Name: ERIBERTO RICO Rep #:[id number] : [...] infarction. Subsequently a STEMI alert was called. [facility] Medical History (Updated 11/30/24 @ [...] kidney disease, stage 3 Atherosclerotic heart disease [place] coronary artery w/angina pectoris Type 2 diabetes [...] 80.9 H, Lymph % (Auto) 10.1 L, [place] % (Auto) 7.7, Eos % (Auto) 0.4, [...] 80.9 H, Lymph % (Auto) 10.1 L, [place] % (Auto) 7.7, Eos % (Auto) 0.4, [...] Hay MD; Dr. Marycarmen Rodriguez DO~ [facility]igned [facility] Work Phone: 1(134) 302-740707-29-2025 Consult note Author Cyndie Frye [facility] Note Date/Time November 28, 2024 12:2 8pm [facility] Medical Records Department [address] [facility] [place] [address] Counseling Note - Pharmacy 11/28/24 0949 MR#: [id number] Acct: [id number] Name: ERIBERTO RICO Rep #:[id number] : 1945 79 From: Cyndie Frye PCP: Dr. Marycarmen Rodriguez, DO Status:ADM EDMUND Y Location: [place] [address] [place]acy [place] [facility]con[facility] Pharmacy Service has performed discharge [...] Signature (if applicable): Date CC: ~ Signed [facility] Work Phone: 1(744) 359-570307-28-2025 Discharge summary Author Jose Hay [facility] Note Date/Time November 27, 2024 11:3 5am [facility] Medical Records Department [address] [place] [address] Instructions for Home/Discharge Instructions 11/27/24 1128 MR#: [id number] Acct: [id number] Name: ERIBERTO RICO Rep #:[id number] : [...] Care Provider: Marycarmen Rodriguez Instructions Print Language: Setswana Discharge Orders/Prescriptions Prescriptions: New furosemide 80 mg [...] MD CC: Dr. Marycarmen Rodriguez, ~ [facility]igned [facility] Work Phone: 1([phone]) 233-411807-27-2025 Radiology Diagnostic study [facility]07-27-2025 Radiology Diagnostic study [facility]07-27-2025 Radiology Diagnostic study [facility] 11-26-2024 Radiology Diagnostic study [facility]07-27-2025 Radiology Diagnostic study [facility]07-27-2025 Radiology Diagnostic study [facility]-27-2025 Discharge summary Author Isael Bernabe [facility] Note Date/Time November 26, 2024 9:41 pm [facility] Medical Records Department [address] [place] [address] Emergency Department Summary 11/26/24 MR#: [id number] Acct: [id number] Name: ERIBERTO RICO Rep #:[id number] : [...] presents status post fall with chest heaviness. [facility] Medical History Shortness of breath Unstable [...] kidney disease, stage 3 Atherosclerotic heart disease [place] coronary artery w/angina pectoris Type 2 diabetes [...] cleansed and dressed. He was given 1 Latrobe which he usually takes at home for pain. He was able to ambulate without difficulty. At this point in time, he is motivated for discharge. I do not feel that he requires admission at this time or observation. I feel he can be discharged to follow-upwith his cardiac catheterization tomorrow morning. Patient will continue his Latrobe at home and follow-up as previously directed. [...] 71.8 H Lymph % (Auto) 16.7 L [place] % (Auto) 9.5 Eos % (Auto) 1.3 [...] IMPRESSION: No acute intracranial process. Reading Location: [facility] Cervical Spine CT 11/26/24 18:03 IMPRESSION: No acute compression deformity, fracture, or subluxation. Moderate multilevel degenerative changes of the cervical spine. Cervical ACDF with interbody spacers spanning C4-C6 without hardware complications. Reading Location: [facility] Chest X-Ray 11/26/24 18:03 IMPRESSION: Negative for edema Reading Location: [facility] Knee X-Ray 11/26/24 18:03 IMPRESSION: Degenerative changes without fracture Reading Location[facility] Hand X-Ray 11/26/24 18:07 IMPRESSION: Degenerative changes. No visible fracture. Reading Location: [facility] Knee X-Ray 11/26/24 18:07 IMPRESSION: Joint effusion Reading [facility] Management Discussion w/another healthcare provider: [facility] Merchandiser (Dr. Araujo) Discharge Plan Triage Chief Complaint: [...] with new or worsening symptoms. Print Language: Setswana Disposition Disposition: Home, Self Care What to do if you have Problems For any increased pain, shortness of breath, bleeding, nausea or vomiting, chestpain, or any unexpected problems, contact your Primary Care Provider. Call [facility] ([phone]) or report to the closest Emergency Room. Call 911 if necessary. 11/26/242140 <Electronically signed by Isael Bernabe MD> Cosigner Signature (if applicable): CC: Dr. Marycarmen Rodriguez DO ~ Signed [facility] Work Phone: 1(828) 519-818307-27-2025 Hospital Discharge instructionsAdditional Instructions Have your cardiac catheterization performed tomorrow as scheduled at 8:30 in the morning. Return with new or worsening symptoms.[facility] Work Phone: 1(964) 503-542907-24-2025 Radiology Diagnostic study [facility]07-21-2025 Radiology Diagnostic study [facility]05-21-2025 Evaluation note* Diagnosis Onset Date Resolution Status Admit Date COPD (chronic obstructive pulmonary disease) chronic September 20 10:13am Diastolic heart failure chronic [facility] 2024 10:13am Obesity chronic September 20, 2024 10:13am Obstructive sleep apnea chronic [facility] 2024 10:13am Shortness of breath acute October 25, 2024 7:54am Bilateral lower extremity edema chronometer tester baylee October 25, 2024 7:54am Chest pain chronic October 25 7:54am Chronic kidney disease, stage 3 chronometer tester baylee October 25, 2024 7:54am Coronary artery [...] Obstructive sleep apnea chronic J 2024 10:00am [facility] Work Phone: 1(841) 875-111205-21-2025 Evaluation note* Diagnosis Onset Date Resolution Status Admit Date COPD (chronic obstructive pulmonary disease) chronic September 20 10:13am Diastolic heart failure chronic M ay 2024 10:13am Obesity chronic September 20, 2024 10:13am Obstructive sleep apnea chronic M ay 2024 10:13am Shortness of breath acute October 25, 2024 7:54am Bilateral lower extremity edema chronometer tester baylee October 25, 2024 7:54am Chest pain chronic October 25 7:54am Chronic kidney disease, stage 3 chronometer tester baylee October 25, 2024 7:54am Coronary artery [...] 22, 2024 10:53am Bilateral lower extremity edema chronometer tester baylee November 22, 2024 10:53am Chest pain chronic November 22 10:53am Chronic kidney disease, stage 3 chronometer tester baylee November 22, 2024 10:53am Essential hypertension chronic Ju 2024 10:53am Hyperlipidemia chronic November 22, 2024 10:53am Obesity chronic November 22 10:53am Type 2 diabetes mellitus wit hout complications chronic November 22, 2024 10:53am [facility] Work Phone: 1(498) 879-563305-21-2025 Evaluation note* Diagnosis Onset Date Resolution Status Admit Date COPD (chronic obstructive pulmonary disease) chronic September 20 10:13am Diastolic heart failure chronic M ay 2024 10:13am Obesity chronic September 20, 2024 10:13am Obstructive sleep apnea chronic M ay 2024 10:13am Shortness of breath acute October 25, 2024 7:54am Bilateral lower extremity edema chronometer tester baylee October 25, 2024 7:54am Chest pain chronic October 25 7:54am Chronic kidney disease, stage 3 chronometer tester baylee October 25, 2024 7:54am Coronary artery [...] 22, 2024 10:53am Bilateral lower extremity edema chronometer tester baylee November 22, 2024 10:53am Chest pain chronic November 22 10:53am Chronic kidney disease, stage 3 chronometer tester baylee November 22, 2024 10:53am Essential hypertension [...] 2024 4:59pm Chronic kidney disease, stage 3 chronometer tester baylee November 30, 2024 4:59pm Coronary artery disease chronic J shannon 2024 4:59pm Dyslipidemia chronic November 30, 4:59pm Essential hypertension chronic Ju ly 2024 4:59pm [facility] Work Phone: 1(178) 447-541105-21-2025 Evaluation note* Diagnosis Onset Date Resolution Status [...] Essential hypertension chronic Ju ly 2024 4:59pm [facility] Work Phone: 1(962) 480-938005-21-2025 Evaluation note* Diagnosis Onset Date Resolution Status [...] sleep apnea chronic A ugust 2024 8:29pm [facility] Work Phone: 1(889) 775-960103-18-2025 [facility] [address] [place] [address] MR#: [id number] Acct: [id number] Name: ERIBERTO RICO Rep #:[id number] : 1945 78 From: Zen East DO Referring Dr: Marni Horn 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 QA ANALYST AUTOMATION QA ANALYST-C Status: REG CLI Location: PSN Date: Sex: M C PSN 6 Minute Walk Test 6 Minute Walk Test 6 Minute Walk Test: 6 Minute Walk Test PSN:6-Minute Walk Test Start: 07/18/24 06:38 Freq: Status: Active Protocol: RESP.6MINW Document 07/18/24 06:00 [facility] (Rec: 07/18/24 06:47 [facility] [id number]) 6 Minute Walk Test Date Performed 07/18/24 Time Performed 06:00 Height 5 ft 9 in Weight: 230 lb Weight in Pounds 230.[address]: Marni Horn AUTOMATION QA ANALYST Assistive device Cane used: Pre-test Oxygen Delivery [...] Date Dictated: 07/18/24 1032 Date Transcribed: 07/18/241031 Ready Mix Truck Driver: Dr. Zen East DO Signed [facility]03-03-2025 Evaluation note* Diagnosis Onset [...] sleep apnea chronic M ay 2024 10:13am [facility] Work Phone: 1(529) 354-753403-03-2025 Evaluation note* Diagnosis Onset Date Resolution Status [...] 25, 2024 7:54am Bilateral lower extremity edema chronometer tester baylee October 25, 2024 7:54am Chronic kidney disease, stage 3 chronometer tester baylee October 25, 2024 7:54am Coronary artery disease chronic J 2024 7:54am Essential hypertension chronic Ju 2024 7:54am Hyperlipidemia chronic October 25, 2024 7:54am Obesity chronic October 25 7:54am Type 2 diabetes mellitus wit hout complications chronic October 25, 2024 7:54am Chest pain inactive October 25 7:54am [facility] Work Phone: 1(349) 149-377303-03-2025 Evaluation note* Diagnosis Onset Date Resolution Status [...] 25, 2024 7:54am Bilateral lower extremity edema chronometer tester baylee October 25, 2024 7:54am Chest pain chronic October 25 7:54am Chronic kidney disease, stage 3 chronometer tester baylee October 25, 2024 7:54am Coronary artery disease chronic J une 2024 7:54am Essential hypertension chronic Ju ne 2024 7:54am Hyperlipidemia chronic October 25, 2024 7:54am Obesity chronic October 25 7:54am Type 2 diabetes mellitus wit hout complications chronic October 25, 2024 7:54am [facility] Work Phone: 1(586) 965-785603-03-2025 Evaluation note* Diagnosis Onset Date Resolution Status [...] 25, 2024 7:54am Bilateral lower extremity edema chronometer tester baylee October 25, 2024 7:54am Chest pain chronic October 25 7:54am Chronic kidney disease, stage 3 chronometer tester baylee October 25, 2024 7:54am Coronary artery [...] sleep apnea chronic J shannon 2024 10:00am [facility] Work Phone: 1(853) 516-105603-03-2025 Evaluation note* Diagnosis Onset Date Resolution Status [...] 25, 2024 7:54am Bilateral lower extremity edema chronometer tester baylee October 25, 2024 7:54am Chest pain chronic October 25 7:54am Chronic kidney disease, stage 3 chronometer tester baylee October 25, 2024 7:54am Coronary artery [...] sleep apnea chronic J shannon 2024 10:00am [facility] Work Phone: 1(670) 936-697512-16-2024 Evaluation note* Diagnosis Onset Date Resolution Status Admit Date DEAN (dyspnea on exertion) acute April 17, 2024 3:51pm Bilateral lower extremity edema chronometer tester baylee April 17, 2024 3:51pm Chronic kidney disease, stage 3 chronometer tester baylee April 17, 2024 3:51pm Coronary artery [...] sleep apnea chronic M arch 2024 1:10pm [facility] Work Phone: 1(336) 466-314611-18-2024 Evaluation note* Diagnosis Onset Date Resolution Status Admit Date Bilateral lower extremity edema chronometer tester baylee March 20, 2024 10:31am Chronic kidney disease, stage 3 chronometer tester baylee March 20, 2024 10:31am Coronary artery disease chronic N ovember 2023 10:31am Essential hypertension chronic No vember 2023 10:31am Hyperlipidemia chronic March 032023 10:31am Obesity chronic March 20, 2024 10:31am Type 2 diabetes mellitus without complications chronic March 032023 10:31am DEAN (dyspnea on exertion) acute April 17, 2024 3:51pm Bilateral lower extremity edema chronometer tester baylee April 17, 2024 3:51pm Chronic kidney disease, stage 3 chronometer tester baylee April 17, 2024 3:51pm Coronary artery [...] 03 1:10pm Obstructive sleep apnea chronic M [facility] 2024 1:10pm [facility] Work Phone: 1(161) 576-598205-02-[address] Hay [facility] September 01, 2022 9:55am Note Date/Time September 01, 2022 8:37am [facility] Medical Records Department [address] [place] [address] Instructions for Home/Discharge Instructions 09/01/22 0835 MR#: [id number] Acct: [id number] Name: ERIBERTO RICO Rep #:[id number] : [...] CC: Dr. Marycarmen Rodriguez DO ~ Signed [facility] Work Phone: 1(522) 172-255808-26-2021 Miscellaneous Notes* Assessment & Plan Note - [...] with any necessary intervention. documented in this [id number] History of Present illness Narrative* Eladio Ingram [...] patient is not nervous/anxious. documented in this [id number] Miscellaneous Notes* Assessment & Plan Note - Fernanda Acuña CNP - 10/09/2020 11:44 AM EDT Associated Problem(s): Coronary artery disease involving [place] coronary artery of [place] heart without angina pectoris Multiple previous cardiac catheterizations with intervention. Most recent cardiac caths were performed in 2018, August 03 at [place], and August 18 at [facility] in [place]. 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 The notes from the cath at [facility] indicate that they were able [...] intolerance, and chest pressure. documented in this [id number] History of Present illness Narrative* Fernanda Acuña CNP - 10/09/2020 11:19 AM EDT [facility] [address] [facility] OFFICE [address] [facility] [id number] Assessment & Plan: Hypertension Blood pressure mildly [...] without CPAP use. Coronary artery disease involving [place] coronary artery of [place] heart without angina pectoris Multiple previous cardiac catheterizations with intervention. Most recent cardiac caths were performed in 2018, August 03 at [place], and August 18 at [facility] in [place]. 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 The notes from the cath at [facility] indicate that they were able [...] re-establish care. He has been following at [place] and [facility] for his cardiology care over the past 4 years. 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 Eriberto has long-standing coronary artery disease and his history is primarily obtained through records from [facility]. Eriberto is uncertain of many of the dates related to multiple tests and interventions he has had in the past 3 years. Eriberto states that he has noticed an increase in exercise intolerance over the past 3-4 weeks. 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 and became quite short of [...] Diagnosis Date Coronary artery disease Diabetes mellitus ([facility]) Diastolic CHF ([facility]) Hyperlipidemia Hypertension Lower leg edema Myocardial infarction ([facility]) 2008 Peripheral vascular disease ([facility]) Sleep apnea Stroke ([facility]) Testicle swelling Past Surgical History: Procedure Laterality Date CARDIAC CATHETERIZATION N/A 01/04/2015 Left Heart Cath,Stent, EF 60%; Eladio Ingram MD; [facility] [employer] CARDIAC CATHETERIZATION N/A 01/28/2015 Left Heart Cath, EF 60%; Eladio Ingram MD; [facility] [employer]IST CARDIAC CATHETERIZATION N/A 06/18/2015 Left Heart Cath, Right Upper Extremity Angiogram, EF 60%; Eladio Ingram MD; [facility] [employer]IST CARDIAC CATHETERIZATION N/A 03/17/2016 Procedure: Left and Right Heart Cath Poss Stent; Surgeon: Eladio Ingram MD; Location: [facility] [employer]; Service: CARDIAC CATHETERIZATION 03/22/2014 EF 60% CARDIAC CATHETERIZATION 06/29/2013 EF 60% CARDIAC CATHETERIZATION 09/08/2012 EF 55% CARDIAC CATHETERIZATION 03/22/2014 EF 60% CARDIAC CATHETERIZATION Right 10/15/2016 Procedure: Left Heart Cath Possible PTCA/Stent; Surgeon: Merritt Arthur MD; Location: [facility] CATH[facility]; Service: CHOLECYSTECTOMY CORONARY ANGIOPLASTY WITH STENT [...] ectopy, no acute changes. 50 minutes spent [id number] with patient Follow Up Ordered: Return for appointment as scheduled for follow up based on test results. Fernanda Aucña CNP * Deisi March RN - 10/09/2020 [...] patient is not nervous/anxious. documented in this [id number] NotePatient Outreach (COVAMN) ERIBERTO RICO ([id number]) 1945 M Date Time Provider Department 06/25/20 PETRONA TELLES During your visit today, we recorded the following information about you: Allergies As of Date: 06/25/2020 (No Known Allergies) Date Reviewed: 08/19/2018 Reviewed by: Moise (Rn) ALEX Mcgraw - Fully Assessed Order(s):SARS-COVID VACCINE 1ST DOSE APPT [[id number]] Order #: [id number] FUTURE Prescriptions as of 06/25/2020 Sig: CLOPIDOGREL [...] (HCC) [N17.9] 08/15/2018 Coronary artery disease involving karluk smith*08/15/2018 Stented coronary artery [Z95.5] 08/15/2018 Letter Text Encounter Status:Closed by LANDON PRODUSER on 06/28/20[facility] Consult note Author Jose Hay [facility] Note Date/Time November 30, 2024 4:51 pm [facility] Medical Records Department [address] [place] [address] Consultation - Cardiology 11/30/24 1642 MR#: [id number] Acct: [id number] Name: ERIBERTO RICO Rep #:[id number] : [...] infarction. Subsequently a STEMI alert was called. [facility] Medical History (Updated 11/30/24 @ [...] kidney disease, stage 3 Atherosclerotic heart disease karluk coronary artery w/angina pectoris Type 2 diabetes [...] 80.9 H, Lymph % (Auto) 10.1 L, [place] % (Auto) 7.7, Eos % (Auto) 0.4, [...] 80.9 H, Lymph % (Auto) 10.1 L, [place] % (Auto) 7.7, Eos % (Auto) 0.4, [...] Hay MD; Dr. Marycarmen Rodriguez DO~ Signed [facility] Work Phone: Discharge summary Author Nickie Danielson [facility] Note Date/Time December 02, 2024 2:2 7pm [facility] Medical Records Department [address] [place] [address] Discharge Summary 12/02/24 1336 MR#: [id number] Acct: [id number] Name: ERIBERTO RICO Rep #:[id number] : 1945 79 From: Nickie Danielson DO PCP: Dr. Marycarmen Rodriguez DO Status:ADM IN [facility] Prov[facility] Date of Admission: 11/30/24 Date [...] [facility] [...] inferior wall. He was taken emergency to [employer] and cardiac catheterization revealed subacute stent thrombosis [...] 78.9 H, Lymph % (Auto) 7.6 L, [place] % (Auto) 12.0 H, Eos % (Auto) [...] abnormality. 2. Age-related senescent changes. Reading Location: [id number] D/C Instructions Discharge Activity: Return to Normal [...] Kale at discharge?: Yes Done w/ Acute MO measure.: Yes Documented LVEF (%): 50 Discharge [...] Self Care Charges/Coding Visit Charges Inpatient E&M: 13520 Disch Hosp >30min 12/02/24 1427 <Electronically signed by Nickie Danielson DO> Cosigner Signature (if applicable): CC: Dr. Jose Hay MD; Dr. Nickie Danielson DO; Dr. Marycarmen Rodriguez DO~ Signed [facility] Work Phone: Evaluation note* Diagnosis Shortness of breath- Primary [facility] Diagnosis DEAN (dyspnea on exertion)- Primary Other dyspnea and respiratory abnormality [facility] Diagnosis DEAN (dyspnea on exertion) Other dyspnea and respiratory abnormality Essential hypertension Unspecified essential hypertension Type 2 diabetes mellitus without complication, without long-term current use of insulin (HCC) MATTHEW (obstructive sleep apnea) Obstructive sleep apnea (adult) (pediatric) Coronary artery disease involving [place] coronary artery of [place] heart without angina pectoris [facility] Diagnosis Shortness of breath [facility]* Diagnosis Essential hypertension- Primary Unspecified essential hypertension Atherosclerosis of [place] coronary artery with angina pectoris, 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) Mixed hyperlipidemia [facility]* Diagnosis Chest pain, unspecified type- Primary [facility]* Diagnosis Coronary artery disease involving [place] coronary artery 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 (HCC)- Primary [facility]* Diagnosis Onset Date Resolution Status Dizziness acute Atherosclerotic heart diseas e k[place] coronary artery w/angina pectoris chronic CHF (congestive heart failure) chronic Essential hypertension chron ic History of coronary artery stent placement August 13, 2017 chronic Hyperlipidemia [facility] Work Phone: evaluation note* Diagnosis Onset Date Resolution Status Dizziness acute Atherosclerotic heart diseas e k[place] coronary artery w/angina pectoris chronic CHF (congestive heart failure) chronic Essential hypertension chron ic History of coronary artery stent placement August 13, 2017 chronic Hyperlipidemia chronic Dizziness acute DEAN (dyspnea on exertion) [place] Palpitations acute CAD (coronary artery disease) chronic CHF (congestive heart failure) chronic Essential hypertension chron ic Hyperlipidemia [facility] Work Phone: evaluation note* Diagnosis Onset Date Resolution Status Dizziness acute Atherosclerotic heart diseas e [place] coronary artery w/angina pectoris chronic CHF (congestive heart failure) chronic Essential hypertension chron ic History of coronary artery stent placement August 13, 2017 chronic Hyperlipidemia chronic Dizziness acute DEAN (dyspnea on exertion) [place] Palpitations acute CAD (coronary artery disease) chronic CHF (congestive heart failure) chronic Essential hypertension chron ic Hyperlipidemia chronic DEAN (dyspnea on exertion) [place] CAD (coronary artery disease) chronic CHF (congestive heart failure) chronic Essential hypertension chron ic Hyperlipidemia [facility] Work Phone: evaluation note* Diagnosis Onset Date Resolution Status Dizziness acute DEAN (dyspnea on exertion) [place] Palpitations acute CAD (coronary artery disease) chronic CHF (congestive heart failure) chronic Essential hypertension chron ic Hyperlipidemia chronic DEAN (dyspnea on exertion) [place] CAD (coronary artery disease) chronic CHF (congestive heart failure) chronic Essential hypertension chron ic Hyperlipidemia chronic [facility] Work Phone: Evaluation note* Diagnosis Onset Date Resolution Status Abnormal PFT acute 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.9) chronometer tester baylee Obstructive sleep apnea chronometer tester baylee COVID-19 acute DEAN (dyspnea on exertion) [place] Atherosclerotic heart diseas e [place] coronary artery w/angina pectoris chronic CHF (congestive heart failure) chronic Essential hypertension chron ic History of coronary artery stent placement August 13, 2017 chronic Hyperlipidemia chronic Abnormal PFT acute COVID-19 acute 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.9) chronometer tester baylee Obstructive sleep apnea chronometer tester baylee [facility] Work Phone: Evaluation note* Diagnosis Onset Date Resolution Status COVID-19 acute DEAN (dyspnea on exertion) [place] Atherosclerotic heart diseas e [place] coronary artery w/angina pectoris chronic CHF (congestive heart failure) chronic Essential hypertension chron ic History of coronary artery stent placement August 13, 2017 chronic Hyperlipidemia chronic Abnormal PFT acute COVID-19 acute 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.9) chronometer tester baylee Obstructive sleep apnea chronometer tester baylee [facility] Work Phone: Evaluation note* Diagnosis Onset Date Resolution Status Angina pectoris chronic Chronic kidney disease chron ic Coronary artery disease chronometer tester baylee Diabetes mellitus chronic Dyslipidemia chronic Essential hypertension chron ic Obesity [facility] Work Phone: Evaluation note* Diagnosis Onset Date Resolution Status Angina pectoris chronic Chronic kidney disease chron ic Coronary artery disease chronometer tester baylee Diabetes mellitus chronic Dyslipidemia chronic Essential hypertension chron ic Obesity chronic Left-sided weakness acute Chest pain resolved Fatigue acute Syncope acute Coronary artery disease chronometer tester baylee Dyslipidemia chronic Essential hypertension chron ic [facility] Work Phone: Evaluation note* Diagnosis Onset Date Resolution Status Left-sided weakness acute Chest pain resolved Fatigue acute Syncope acute Coronary artery disease chronometer tester baylee Dyslipidemia chronic Essential hypertension chron ic Angina pectoris chronic Bilateral lower extremity edema chronic Chronic kidney disease, stage 3 chronic Coronary artery disease chronometer tester baylee Essential hypertension chron ic Hyperlipidemia chronic Type 2 diabetes mellitus without complications [facility] Work Phone: Evaluation noteNo assessment information available [facility] Work Phone: Hospital Discharge instructionsAmbulatory Orders* Phase II, Outpatient Cardiac Rehab Location: None Selected [facility] Work Phone: Progress note Author Dr. Hay [facility] September 01, 2022 9:53am Note Date/Time September 01, 2022 9:51am [facility] Medical Records Department [address] [place] [address] Progress Note 09/01/22 0950 MR#: [id number] Acct: [id number] Name: ERIBERTO RICO Rep #:[id number] : 1945 77 From: Jose Hay MD PCP: Dr. Marycarmen Rodriguez, DO Status:ADM EDMUND Location: [place] [address] Progress Note Reports complete resolution of angina. Denies any complaints today. Right groin stable. No hematoma or bruit. Right radial pulse 2+. Mildly decreased platelet count noted. Repeat CBC in 2 days. Also repeat complete metabolic panel in 2 days. Discharge home. Follow-up as outpatient. 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 Expl anation Advance Directives and Living Will [...] Documents on File Type Date Recorded 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 Expl anation Advance Directives and Livin g Will 10/04/2020 12:00 AM Documents on File Type Date Recorded 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 Expl anation Advance Directives and Living Will [...] Documents on File Type Date Recorded 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 Expl anation Advance Directives and Livin g Will 10/15/2020 12:46 PM Documents on File Type Date Recorded 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 Expl anation Advance Directives and Livin g Will 10/15/2020 12:46 PM Documents on File Type Date Recorded 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 Expl anation Advance Directives and Livin g [...] Will Yes June 10 4:44pm Power of Lacquer Coater Yes June 10, 2021 4:44pm Advance Directive Response Recorded Date/ Time Name of Medical Power of Lacquer Coater Jennie- November 16, 2021 1:06pm Advance Directives No August 13, 2 018 7:02am Living Will Yes November 16, 2021 1:06pm Power of Lacquer Coater Yes November 16 1:06pm Advance Directive Response Recorded Date/ Time Advance Directives No August 13 018 6:02am Living Will Yes November 16, 2021 12:06pm Power of Lacquer Coater Yes November 16 12:06pm Advance Directive Response Recorded Date/ Time Advance Directives No August 13 018 7:02am Living Will Yes November 16, 2021 1:06pm Power of Lacquer Coater Yes November 16 1:06pm Advance Directive Response Recorded Date/ Time Advance Directives on File Yes August 312022 7:47am Name of Medical Power of Lacquer Coater Mike escalera August 31, 2022 7:47am Advance Directives Yes August 31, 2022 7:47am Living Will Yes August 31, 2022 7: 47am Power of Lacquer Coater Yes August 31, 2022 7:47am Advance Directive Response Recorded Date/ Time Advance Directives on File Yes August 312022 7:47am Name of Medical Power of Lacquer Coater Mike escalera August 31, 2022 7:47am Advance Directives Yes August 31, 2022 7:47am Living Will No September 18, 2022 1 2:11am Power of Lacquer Coater No September 18, 2022 12:11am Advance Directive Response Recorded Date/ Time Advance Directives on File Yes August 312022 7:47am Name of Medical Power of Lacquer Coater Mike escalera August 31, 2022 7:47am Advance Directives on File No Augus 2022 7:51am Name of Medical Power of Lacquer Coater MIKE RICO December 21, 2022 7:51am Advance Directives Yes December 21, 2022 7:51am Living Will Yes Frank 21st, 202 3 7:51am Power of Lacquer Coater Yes December 21 7:51am Advance Directive Response Recorded Date/ Time Advance Directives on File No Augus 2022 7:51am Name of Medical Power of Lacquer Coater MIKE RICO December 21, 2022 7:51am Advance Directives Yes December 21, 2022 7:51am Living Will Yes December 21 7:51am Power of Lacquer Coater Yes December 21 7:51am Advance Directive Response Recorded Date/ Time Advance Directives Yes December 21, 2022 6:51am Living Will Yes December 21 6:51am Power of Lacquer Coater Yes December 21 6:51am Advance Directive Response Recorded Date/ Time Living Will No October 12, 2023 6:54pm Power of Lacquer Coater No October 11 6:54pm Advance Directives Yes December 21, 2022 7:51am Advance Directive Response Recorded Date/ Time Advance Directives Yes December 21, 2022 7:51am Advance Directive Response Recorded Date/ Time Do you have a Healthcare Power of Lacquer Coater? Yes November 26, 2024 5:44pm Advance Directives Yes December 21, 2022 7:51am Advance Directive Response Recorded Date/ Time Advance Directives on File Yes November 27, 2024 8:44am Living Will Yes November 27, 2024 8:44am Do you have a Healthcare Pow er of Lacquer Coater? Yes November 27, 2024 8:44am Name of Medical Power of Lacquer Coater Jennie Popeag er- spouse November 27, 2024 8:44am Advance Directives Yes November 27 8:44am Do you have a Healthcare Pow er of Lacquer Coater? Yes November 26, 2024 5:44pm Advance Directive Response Recorded Date/ Time Advance Directives on File Yes November 27, 2024 8:44am Living Will Yes November 27, 2024 8:44am Do you have a Healthcare Pow er of Lacquer Coater? Yes November 27, 2024 8:44am Name of Medical Power of Lacquer Coater Jennie Popeag er- spouse November 27, 2024 8:44am Advance Directives Yes November 27 8:44am Do you have a Healthcare Pow er of Lacquer Coater? Yes November 26, 2024 5:44pm Do you have a Healthcare Pow er of Lacquer Coater? Yes November 30, 2024 5:22pm Advance Directive Response Recorded Date/ Time Advance Directives on File Yes November 27, 2024 8:44am Living Will Yes November 27, 2024 8:44am Do you have a Healthcare Pow er of Lacquer Coater? Yes November 27, 2024 8:44am Name of Medical Power of Lacquer Coater Jennie Agarwal er- spouse November 27, 2024 8:44am Advance Directives Yes November 27 8:44am Do you have a Healthcare Pow er of Lacquer Coater? Yes November 26, 2024 5:44pm Do you have a Healthcare Pow er of Lacquer Coater? Yes November 30, 2024 5:22pm Do you have a Healthcare Pow er of Lacquer Coater? Yes December 02, 2024 8:23pm Reason for Referral Status Reason Specialty Diagnoses / Procedures Referred By Contact Referred To Contact New Request Cardiology Diagnoses Shortness of breath Procedures Echocardiogram complete Eladio Ingram MD [address] [address] Status Reason Specialty Diagnoses / Procedures Referred By Contact Referred To Contact Closed Cardiology Diagnoses DEAN (dyspnea on exertion) Procedures ECG 12 lead Fernanda Acuña, LINING STITCHER [address] [place] [address] Specialty Diagnoses / Procedures Referred By Contac t Referred To Contact Radiology Diagnoses Coronary artery disease involving [place] coronary artery 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 (HCC) Procedures CT Angiogram Aorta Chest Abdomen Pelvis Eladio Ingram MD [address] [address] Referral ID Status Reason Start Date Expiration Date V isits Requested Visits Authorized [id number] New Request 01/10/2021 01/10/2022 1 1 Chief Complaint and Reason for Visit Chief Complaint R. LOWER LID LESION RLQ ABD PAIN bleeding from ear, chest pain OVERDUE FOR OV CHEST PAIN CHEST PAIN Reason for Visit Dizziness Atherosclerotic heart disease [place] coronary artery w/angina pectoris CHF (congestive heart failure) Essential hypertension History of coronary artery stent placement Hyperlipidemia Chief Complaint bleeding from ear, c hest pain OVERDUE FOR OV CHEST PAIN CHEST PAIN 6-8 WK F/U DYSPNEA Reason for Visit Dizziness Atherosclerotic heart disease [place] coronary artery w/angina pectoris CHF (congestive heart failure) Essential hypertension History of coronary artery stent placement Hyperlipidemia Dizziness DEAN (dyspnea on exertion) Palpitations CAD (coronary artery disease) CHF (congestive heart failure) Essential hypertension Hyperlipidemia Chief Complaint OVERDUE FOR OV CHEST PAIN CHEST PAIN 6-8 WK F/U DYSPNEA Reason for Visit Dizziness Atherosclerotic heart disease [place] coronary artery w/angina pectoris CHF (congestive heart failure) Essential hypertension History of coronary artery stent placement Hyperlipidemia Dizziness DEAN (dyspnea on exertion) Palpitations CAD (coronary artery disease) CHF (congestive heart failure) Essential hypertension Hyperlipidemia Chief Complaint OVERDUE FOR OV CHEST PAIN CHEST PAIN 6-8 WK F/U DYSPNEA CHEST PAIN 2 M FU E ORDERS Reason for Visit Dizziness Atherosclerotic heart disease [place] coronary artery w/angina pectoris CHF (congestive heart [...] DEAN (dyspnea on exertion) Atherosclerotic heart disease [place] coronary artery w/angina pectoris CHF (congestive heart failure) Essential hypertension History of coronary artery stent placement Hyperlipidemia Abnormal PFT COVID-19 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.9) Obstructive sleep apnea Chief Complaint SORE THROAT, COUGH, FEVER, BODY ACHE 5 MO F/U 3 M FU DYSPNEA/SOB Reason for Visit COVID-19 DEAN (dyspnea on exertion) Atherosclerotic heart disease [place] coronary artery w/angina pectoris CHF (congestive heart [...] CP CVA, CP CVA, CP request by AUTOMATION QA ANALYST at [place] for angina L.L. E-ORDER SYNCOPE Reason for Visit Angina pectoris Chronic kidney disease Coronary artery disease Diabetes mellitus Dyslipidemia Essential hypertension Obesity Left-sided weakness Chest pain Fatigue Syncope Coronary artery disease Dyslipidemia Essential hypertension Chief Complaint CAD Amb Documentation EKG Coronary artery disease Amb Documentation CVA, CP CVA, CP CP ADMIT CVA, CP CVA, CP CVA, CP CVA, CP request by AUTOMATION QA ANALYST at [place] for angina L.L. E-ORDER SYNCOPE 2 M [...] CP CVA, CP CVA, CP request by AUTOMATION QA ANALYST at [place] for angina L.L. E-ORDER SYNCOPE 2 M [...] 7:46pm MATTHEW July 17, 2024 10: 31am MATTHWE July 17, 2024 10: 45am [email or web address] - [...] section and content) DATE CREATED AUTHOR 09/24/2018 [facility] DATE CREATED AUTHOR AUTHOR'S ORGANIZ ATION 12/20/2020 [facility] DATE CREATED AUTHOR AUTHOR'S ORGANIZ ATION 01/11/2021 [facility] DATE CREATED AUTHOR AUTHOR'S ORGANIZ ATION 02/28/2021 [facility] DATE CREATED AUTHOR AUTHOR'S ORGANIZ ATION 04/20/2021 [facility] DATE CREATED AUTHOR AUTHOR'S ORGANIZ ATION 06/22/2021 [facility] DATE CREATED AUTHOR AUTHOR'S ORGANIZ ATION 12/04/2024 [facility] Reason for Visit (unrecogniz ed section and content) Reason Comments Chest Pain SOB Status Reason Specialty Diagnoses / Procedures Referred By Contact Referred To Contact Closed Cardiology Diagnoses DEAN (dyspnea on exertion) Procedures ECG 12 lead Fernanda Acuña, LINING STITCHER [address] [place] [address] Status Reason Specialty Diagnoses / Procedures Referre d By Contact Referred To Contact Closed Cardiology Diagnoses Shortness of breath Procedures Echocardiogram complete w contrast Echocardiogram complete Eladio Ingram MD [address] [facility] [address] [place] [address] Reason Comments Initial Visit (Intake) Specialty Diagnoses / Procedures Referred By Contac t Referred To Contact Cardiology Diagnoses Atherosclerosis of [place] coronary artery with angina pectoris, 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) Marycarmen Rodriguez, [address] [facility] [place] [address] Referral ID Status Reason Start Date Expiration Date V isits Requested Visits Authorized [id number] Closed Specialty Services Required/Krupa ent's Best Interest 10/04/2020 10/04/2021 1 1 Care Teams (unrecognized sec tion and content) Clinical Advisor Relationship Specialty Start Date End Date Marycarmen Rodriguez, DO [address] [place] [address] PCP - General Family Medicine 12/17/16 Clinical Advisor Relationship Specialty Start Date End Date Maryacrmen Rodriguez, DO [address] [place] [address] PCP - General Family Medicine 12/17/16 Clinical Advisor Relationship Specialty Start Date End Date Marycarmen Rodriguez, DO [address] [place] [address] PCP - General Family Medicine 12/17/16 Clinical Advisor Relationship Specialty Start Date End Date Marycarmen Rodriguez, DO [facility] [place] [address] PCP - General Family Medicine 12/17/16 Team Status: Active Member Role Status Dates Dr. Marycarmen Rodriguez DO Family Provider Active Marycarmen Rodriguez Primary Care Provider Active Team Status: Inactive Member Role Status Dates Dr. Marycarmen Rodriguez DO Primary Care Provider, Referrin g Provider Active Luz Elena Mckeon AUTOMATION QA ANALYST, AUTOMATION QA ANALYST-C Attending Provider Active Team Status: Inactive Member [...] Primary Care Provider Active Luz Elena Mckeon AUTOMATION QA ANALYST, AUTOMATION QA ANALYST-C Attending Provider Active Team Status: Inactive Member Role Status Dates Dr. Marycarmen Rodriguez DO Primary Care Provider Active Luz Elena Mckeon AUTOMATION QA ANALYST, AUTOMATION QA ANALYST-C Attending Provider, Referring P rovider Active Team [...] Primary Care Provider Active Luz Elena Mckeon AUTOMATION QA ANALYST, AUTOMATION QA ANALYST-C Attending Provider, Referring P sharon Active Team [...] Primary Care Provider Active Luz Elena Mckeon AUTOMATION QA ANALYST, AUTOMATION QA ANALYST-C Attending Provider Active Team Status: Inactive Member [...] 2024 End: April 17, 2024 Gustabo Pérez AUTOMATION QA ANALYST, AUTOMATION QA ANALYST-C Attending Provider Active S tart: April 17, 2024 End: April 17, 2024 Team Status: Inactive Member Role Status Dates Dr. Marycarmen Rodriguez DO Primary Care Provider Active Start: April 17, 2024 End: April 17, 2024 Gustabo Pérez AUTOMATION QA ANALYST, AUTOMATION QA ANALYST-C Attending Provider Active S tart: April 17, 2024 End: April 17, 2024 Gustabo Pérez AUTOMATION QA ANALYST, AUTOMATION QA ANALYST-C Referring Provider Active S tart: April 17, [...] 2024 End: July 03, 2024 Marni Horn AUTOMATION QA ANALYST, AUTOMATION QA ANALYST-C Attending Provider Active Start: July 03, 2024 End: July 03, 2024 Team Status: Active Member Role Status Dates Dr. Marycarmen Rodriguez DO Primary Care Provider Active Start: July 07, 2024 Marni Horn AUTOMATION QA ANALYST, AUTOMATION QA ANALYST-C Attending Provider Active Start: July 07, 2024 Marni Horn AUTOMATION QA ANALYST, AUTOMATION QA ANALYST-C Referring Provider Active Start: July 07, 2024 Team Status: Inactive Member Role Status Dates Dr. Marycarmen Rodriguez DO Primary Care Provider Active Start: July 07, 2024 End: July 07, 2024 Marni Horn AUTOMATION QA ANALYST, AUTOMATION QA ANALYST-C Attending Provider Active Start: July 07, 2024 End: July 07, 2024 Marni Horn AUTOMATION QA ANALYST, AUTOMATION QA ANALYST-C Referring Provider Active Start: July 07, 2024 End: July 07, 2024 Team Status: Active Member Role Status Dates Dr. Marycarmen Rodriguez DO Primary Care Provider Active Start: July 17, 2024 Marni Horn AUTOMATION QA ANALYST, AUTOMATION QA ANALYST-C Attending Provider Active Start: July 17, 2024 Marni Horn AUTOMATION QA ANALYST, AUTOMATION QA ANALYST-C Referring Provider Active Start: July 17, 2024 Team Status: Active Member Role Status Dates Dr. Marycarmen Rodriguez DO Primary Care Provider Active Start: July 18, 2024 Marni Horn AUTOMATION QA ANALYST, AUTOMATION QA ANALYST-C Attending Provider Active Start: July 18, 2024 Marni Horn AUTOMATION QA ANALYST, AUTOMATION QA ANALYST-C Referring Provider Active Start: July 18, 2024 Team Status: Active Member Role Status Dates Dr. Marycarmen Rodriguez DO Primary Care Provider Active Start: July 18, 2024 Marni Horn AUTOMATION QA ANALYST, AUTOMATION QA ANALYST-C Referring Provider Active Start: July 18, 2024 Marni Horn AUTOMATION QA ANALYST, AUTOMATION QA ANALYST-C Other Provider Active Start: July 18, 2024 Dr. Zen East DO Attending Provider Active S tart: July 18, 2024 Team Status: Inactive Member Role Status Dates Dr. Marycarmen Rodriguez DO Primary Care Provider Active Start: July 17, 2024 End: July 17, 2024 Marni Horn AUTOMATION QA ANALYST, AUTOMATION QA ANALYST-C Attending Provider Active Start: July 17, 2024 End: July 17, 2024 Marni Horn AUTOMATION QA ANALYST, AUTOMATION QA ANALYST-C Referring Provider Active Start: July 17, 2024 End: July 17, 2024 Team Status: Inactive Member Role Status Dates Dr. Marycarmen Rodriguez DO Primary Care Provider Active Start: July 18, 2024 End: July 18, 2024 Marni Horn AUTOMATION QA ANALYST, AUTOMATION QA ANALYST-C Attending Provider Active Start: July 18, 2024 End: July 18, 2024 Marni Horn AUTOMATION QA ANALYST, AUTOMATION QA ANALYST-C Referring Provider Active Start: July 18, 2024 End: July 18, 2024 Team Status: Inactive Member Role Status Dates Dr. Marycarmen Rodriguez DO Primary Care Provider Active Start: August 03, 2024 End: August 03, 2024 Marni Horn AUTOMATION QA ANALYST, AUTOMATION QA ANALYST-C Attending Provider Active Start: August 03, 2024 End: August 03, 2024 Marni Horn AUTOMATION QA ANALYST, AUTOMATION QA ANALYST-C Referring Provider Active Start: August 03, 2024 [...] 2024 End: September 20, 2024 Maren Olivas AUTOMATION QA ANALYST-C Attending Provider Active Start: September 20, 2024 End: September 20, 2024 Maren Olivas NP-C Referring Provider Active Start: September 20, 2024 End: September 20, 2024 Team Status: Active Member Role Status Dates Dr. Marycarmen Rodriguez DO Primary Care Provider Active Start: September 22, 2024 Marni Horn NP, AUTOMATION QA ANALYST-C Attending Provider Active Start: September 22, 2024 Team Status: Inactive Member Role Status Dates Dr. Marycarmen Rodriguez DO Primary Care Provider Active Start: September 22, 2024 End: September 22, 2024 Marni Horn NP, AUTOMATION QA ANALYST-C Attending Provider Active Start: September 22, 2024 [...] Active Member Role Status Dates Dr. Marycarmen Rodriguze DO Primary Care Provider Active Start: July 17, 2024 Dr. Zen East DO Attending Provider Active S tart: July 17, 2024 Marni Horn AUTOMATION QA ANALYST, AUTOMATION QA ANALYST-C Referring Provider Active Start: July 17, 2024 Team Status: Inactive Member Role Status Dates Dr. Marycarmen Rodriguez DO Primary Care Provider Active Start: October 18, 2024 End: October 18, 2024 Dr. Brooks Carpenter MD Attending Provider Active Start: October 18, 2024 End: October 18, 2024 Dr. Brooks Carpenter MD Referring Provider Active Start: October 18, 2024 End: October 18, 2024 Gustabo Pérez AUTOMATION QA ANALYST, AUTOMATION QA ANALYST-C Other Provider Active Start : October 18, 2024 End: October 18, 2024 Team Status: Active Member Role Status Dates Dr. Marycarmen Rodriguez DO Primary Care Provider Active Start: October 18, 2024 Marni Horn AUTOMATION QA ANALYST, AUTOMATION QA ANALYST-C Attending Provider Active Start: October 18, 2024 Team Status: Inactive Member Role Status Dates Dr. Marycarmen Rodriguez DO Primary Care Provider Active Start: October 25, 2024 End: October 25, 2024 Dr. Marycarmen Rodriguez DO Referring Provider Active Start: October 25, 2024 End: October 25, 2024 Gustabo Pérez AUTOMATION QA ANALYST, AUTOMATION QA ANALYST-C Attending Provider Active S tart: October 25, 2024 End: October 25, 2024 Team Status: Inactive Member Role Status Dates Dr. Marycarmen Rodriguez DO Primary Care Provider Active Start: October 18, 2024 End: October 18, 2024 Marni Horn AUTOMATION QA ANALYST, AUTOMATION QA ANALYST-C Attending Provider Active Start: October 18, 2024 [...] 2024 End: July 03, 2024 Marni Horn AUTOMATION QA ANALYST, AUTOMATION QA ANALYST-C Attending Provider Active Start: July 03, 2024 End: July 03, 2024 Team Status: Inactive Member Role/Relationship Status Dates Dr. Marycarmen Rodriguez DO Primary Care Provider Active Start: July 07, 2024 End: July 07, 2024 Marni Horn AUTOMATION QA ANALYST, AUTOMATION QA ANALYST-C Attending Provider Active Start: July 07, 2024 End: July 07, 2024 Marni Horn AUTOMATION QA ANALYST, AUTOMATION QA ANALYST-C Referring Provider Active Start: July 07, 2024 End: July 07, 2024 Team Status: Inactive Member Role/Relationship Status Dates Dr. Marycarmen Rodriguez DO Primary Care Provider Active Start: July 17, 2024 End: July 17, 2024 Marni Horn AUTOMATION QA ANALYST, AUTOMATION QA ANALYST-C Attending Provider Active Start: July 17, 2024 End: July 17, 2024 Marni Horn AUTOMATION QA ANALYST, AUTOMATION QA ANALYST-C Referring Provider Active Start: July 17, 2024 End: July 17, 2024 Team Status: Active Member Role/Relationship Status Dates Dr. Marycarmen Rodriguez DO Primary Care Provider Active Start: July 17, 2024 Dr. Zen East DO Attending Provider Active S tart: July 17, 2024 Marni Horn AUTOMATION QA ANALYST, AUTOMATION QA ANALYST-C Referring Provider Active Start: July 17, 2024 Team Status: Inactive Member Role/Relationship Status Dates Dr. Marycarmen Rodriguez DO Primary Care Provider Active Start: July 18, 2024 End: July 18, 2024 Marni Horn AUTOMATION QA ANALYST, AUTOMATION QA ANALYST-C Attending Provider Active Start: July 18, 2024 End: July 18, 2024 Marni Horn AUTOMATION QA ANALYST, AUTOMATION QA ANALYST-C Referring Provider Active Start: July 18, 2024 End: July 18, 2024 Team Status: Active Member Role/Relationship Status Dates Dr. Marycarmen Rodriguez DO Primary Care Provider Active Start: July 18, 2024 Marni Horn AUTOMATION QA ANALYST, AUTOMATION QA ANALYST-C Referring Provider Active Start: July 18, 2024 Marni Horn AUTOMATION QA ANALYST, AUTOMATION QA ANALYST-C Other Provider Active Start: July 18, 2024 Dr. Zen East DO Attending Provider Active S tart: July 18, 2024 Team Status: Inactive Member Role/Relationship Status Dates Dr. Marycarmen Rodriguez DO Primary Care Provider Active Start: August 03, 2024 End: August 03, 2024 Marni Horn AUTOMATION QA ANALYST, AUTOMATION QA ANALYST-C Attending Provider Active Start: August 03, 2024 End: August 03, 2024 Marni Horn AUTOMATION QA ANALYST, AUTOMATION QA ANALYST-C Referring Provider Active Start: August 03, 2024 [...] 2024 End: September 22, 2024 Marni Horn AUTOMATION QA ANALYST, AUTOMATION QA ANALYST-C Attending Provider Active Start: September 22, 2024 [...] 2024 End: October 18, 2024 Gustabo Pérez AUTOMATION QA ANALYST, AUTOMATION QA ANALYST-C Other Provider Active Start : October 18, 2024 End: October 18, 2024 Team Status: Inactive Member Role/Relationship Status Dates Dr. Marycarmen Rodriguez DO Primary Care Provider Active Start: October 18, 2024 End: October 18, 2024 Marni Horn AUTOMATION QA ANALYST, AUTOMATION QA ANALYST-C Attending Provider Active Start: October 18, 2024 End: October 18, 2024 Team Status: Inactive Member Role/Relationship Status Dates Dr. Marycarmen Rodriguez DO Primary Care Provider Active Start: October 25, 2024 End: October 25, 2024 Dr. Marycarmen Rodriguez DO Referring Provider Active Start: October 25, 2024 End: October 25, 2024 Gustabo Pérez AUTOMATION QA ANALYST, AUTOMATION QA ANALYST-C Attending Provider Active S tart: October 25, 2024 End: October 25, 2024 Team Status: Active Member Role/Relationship Status Dates Dr. Marycarmen Rodriguez DO Primary Care Provider Active Start: October 26, 2024 Marni Horn AUTOMATION QA ANALYST, AUTOMATION QA ANALYST-C Attending Provider Active Start: October 26, 2024 Marni Horn AUTOMATION QA ANALYST, AUTOMATION QA ANALYST-C Referring Provider Active Start: October 26, 2024 Team Status: Inactive Member Role/Relationship Status Dates Dr. Marycarmen Rodriguez DO Primary Care Provider Active Start: October 31, 2024 End: October 31, 2024 Dr. Marycarmen Rodriguez DO Referring Provider Active Start: October 31, 2024 End: October 31, 2024 Maren Olivas AUTOMATION QA ANALYST-C Attending Provider Active Start: October 31, 2024 End: October 31, 2024 Team Status: Inactive Member Role/Relationship Status Dates Dr. Marycarmen Rodriguez DO Primary Care Provider Active Start: October 26, 2024 End: October 26, 2024 Marni Horn AUTOMATION QA ANALYST, AUTOMATION QA ANALYST-C Attending Provider Active Start: October 26, 2024 End: October 26, 2024 Marni Horn AUTOMATION QA ANALYST, AUTOMATION QA ANALYST-C Referring Provider Active Start: October 26, 2024 End: October 26, 2024 Team Status: Inactive Member Role/Relationship Status Dates Dr. Marycarmen Rodriguez DO Primary Care Provider Active Start: August 03, 2024 End: August 03, 2024 Marni Horn AUTOMATION QA ANALYST, AUTOMATION QA ANALYST-C Attending Provider Active Start: August 03, 2024 End: August 03, 2024 Marni Horn AUTOMATION QA ANALYST, AUTOMATION QA ANALYST-C Referring Provider Active Start: August 03, 2024 [...] 2024 End: September 20, 2024 Maren Olivas AUTOMATION QA ANALYST-C Referring Provider Active Start: September 20, 2024 End: September 20, 2024 Team Status: Inactive Member Role/Relationship Status Dates Dr. Marycarmen Rodriguez DO Primary Care Provider Active Start: September 22, 2024 End: September 22, 2024 Marni Horn AUTOMATION QA ANALYST, AUTOMATION QA ANALYST-C Attending Provider Active Start: September 22, 2024 [...] 2024 End: October 18, 2024 Gustabo Pérez AUTOMATION QA ANALYST, AUTOMATION QA ANALYST-C Other Provider Active Start : October 18, 2024 End: October 18, 2024 Team Status: Inactive Member Role/Relationship Status Dates Dr. Marycarmen Rodriguez DO Primary Care Provider Active Start: October 18, 2024 End: October 18, 2024 Marni Horn AUTOMATION QA ANALYST, AUTOMATION QA ANALYST-C Attending Provider Active Start: October 18, 2024 End: October 18, 2024 Team Status: Inactive Member Role/Relationship Status Dates Dr. Marycarmen Rodriguez DO Primary Care Provider Active Start: October 25, 2024 End: October 25, 2024 Dr. Marycarmen Rodriguez DO Referring Provider Active Start: October 25, 2024 End: October 25, 2024 Gustabo Pérez AUTOMATION QA ANALYST, AUTOMATION QA ANALYST-C Attending Provider Active S tart: October 25, 2024 End: October 25, 2024 Team Status: Inactive Member Role/Relationship Status Dates Dr. Marycarmen Rodriguez DO Primary Care Provider Active Start: October 26, 2024 End: October 26, 2024 Marni Horn AUTOMATION QA ANALYST, AUTOMATION QA ANALYST-C Attending Provider Active Start: October 26, 2024 End: October 26, 2024 Marni Horn AUTOMATION QA ANALYST, AUTOMATION QA ANALYST-C Referring Provider Active Start: October 26, 2024 [...] Active Start: November 10, 2024 Gustabo Pérez AUTOMATION QA ANALYST, AUTOMATION QA ANALYST-C Attending Provider Active S tart: November 10, 2024 Gustabo Pérez AUTOMATION QA ANALYST, AUTOMATION QA ANALYST-C Referring Provider Active S tart: November 10, 2024 Team Status: Active Member Role/Relationship Status Dates Dr. Marycarmen Rodriguez DO Primary Care Provider Active Start: November 10, 2024 Dr. Lance Rodriguez MD Attending Provider Active S tart: November 10, 2024 Gustabo Pérez AUTOMATION QA ANALYST, AUTOMATION QA ANALYST-C Referring Provider Active S tart: November 10, [...] Provider Active Start: November 13, 2024 Gustabo éPrez AUTOMATION QA ANALYST, AUTOMATION QA ANALYST-C Referring Provider Active S tart: November 13, 2024 Gustabo Pérez AUTOMATION QA ANALYST, AUTOMATION QA ANALYST-C Other Provider Active Start : November 13, 2024 Dr. Jose Hay MD Attending Provider Active Start: November 13, 2024 Team Status: Inactive Member Role/Relationship Status Dates Dr. Marycarmen Rodriguez DO Primary Care Provider Active Start: November 10, 2024 End: November 10, 2024 Gustabo Pérez AUTOMATION QA ANALYST, AUTOMATION QA ANALYST-C Attending Provider Active S tart: November 10, 2024 End: November 10, 2024 Gustabo Pérez AUTOMATION QA ANALYST, AUTOMATION QA ANALYST-C Referring Provider Active S tart: November 10, 2024 End: November 10, 2024 Team Status: Inactive Member Role/Relationship Status Dates Dr. Marycarmen Rodriguez DO Primary Care Provider Active Start: November 10, 2024 End: November 10, 2024 Maren Olivas NP-C Attending Provider Active Start: November 10, 2024 End: November 10, 2024 Maren Olivas AUTOMATION QA ANALYST-C Referring Provider Active Start: November 10, 2024 [...] 2024 End: November 22, 2024 Gustabo Pérez AUTOMATION QA ANALYST, AUTOMATION QA ANALYST-C Attending Provider Active S tart: November 22, [...] Active Start: November 22, 2024 Gustabo Pérez AUTOMATION QA ANALYST, AUTOMATION QA ANALYST-C Attending Provider Active S tart: November 22, 2024 Gustabo Pérez AUTOMATION QA ANALYST, AUTOMATION QA ANALYST-C Referring Provider Active S tart: November 22, [...] 2024 End: November 22, 2024 Gustabo Pérez AUTOMATION QA ANALYST, AUTOMATION QA ANALYST-C Attending Provider Active S tart: November 22, 2024 End: November 22, 2024 Gustabo Pérez AUTOMATION QA ANALYST, AUTOMATION QA ANALYST-C Referring Provider Active S tart: November 22, [...] End: September 22, 2024 Marni Horn NP AUTOMATION QA ANALYST-C Attending Provider Active Start: September 22, 2024 [...] 2024 End: October 18, 2024 Gustabo Pérez AUTOMATION QA ANALYST, AUTOMATION QA ANALYST-C Other Provider Active Start : October 18, 2024 End: October 18, 2024 Team Status: Inactive Member Role/Relationship Status Dates Dr. Marycarmen Rodriguez DO Primary Care Provider Active Start: October 18, 2024 End: October 18, 2024 Marni Horn AUTOMATION QA ANALYST, AUTOMATION QA ANALYST-C Attending Provider Active Start: October 18, 2024 End: October 18, 2024 Team Status: Inactive Member Role/Relationship Status Dates Dr. Marycarmen Rodriguez DO Primary Care Provider Active Start: October 25, 2024 End: October 25, 2024 Dr. Marycarmen Rodriguez DO Referring Provider Active Start: October 25, 2024 End: October 25, 2024 Gustabo Pérez AUTOMATION QA ANALYST, AUTOMATION QA ANALYST-C Attending Provider Active S tart: October 25, 2024 End: October 25, 2024 Team Status: Inactive Member Role/Relationship Status Dates Dr. Marycarmen Rodriguez DO Primary Care Provider Active Start: October 26, 2024 End: October 26, 2024 Marni Horn AUTOMATION QA ANALYST, AUTOMATION QA ANALYST-C Attending Provider Active Start: October 26, 2024 End: October 26, 2024 Marni Horn AUTOMATION QA ANALYST, AUTOMATION QA ANALYST-C Referring Provider Active Start: October 26, 2024 [...] 2024 End: November 10, 2024 Gustabo Pérez AUTOMATION QA ANALYST, AUTOMATION QA ANALYST-C Attending Provider Active S tart: November 10, 2024 End: November 10, 2024 Gustabo Pérez AUTOMATION QA ANALYST, AUTOMATION QA ANALYST-C Referring Provider Active S tart: November 10, 2024 End: November 10, 2024 Team Status: Active Member Role/Relationship Status Dates Dr. Marycarmen Rodriguez DO Primary Care Provider Active Start: November 10, 2024 Dr. Lance Rodriguez MD Attending Provider Active S tart: November 10, 2024 Gustabo Pérez AUTOMATION QA ANALYST, AUTOMATION QA ANALYST-C Referring Provider Active S tart: November 10, 2024 Team Status: Inactive Member Role/Relationship Status Dates Dr. Marycarmen Rodriguez DO Primary Care Provider Active Start: November 10, 2024 End: November 10, 2024 Maren Olivas NP-C Attending Provider Active Start: November 10, 2024 End: November 10, 2024 Maren Olivas AUTOMATION QA ANALYST-C Referring Provider Active Start: November 10, 2024 End: November 10, 2024 Team Status: Active Member Role/Relationship Status Dates Dr. Marycarmen Rodriguez DO Primary Care Provider Active Start: November 13, 2024 Gustabo Pérez AUTOMATION QA ANALYST, AUTOMATION QA ANALYST-C Referring Provider Active S tart: November 13, 2024 Gustabo Pérez AUTOMATION QA ANALYST, AUTOMATION QA ANALYST-C Other Provider Active Start : November 13, [...] 2024 End: November 22, 2024 Gustabo Pérez AUTOMATION QA ANALYST, AUTOMATION QA ANALYST-C Attending Provider Active S tart: November 22, 2024 End: November 22, 2024 Team Status: Inactive Member Role/Relationship Status Dates Dr. Marycarmen Rodriguez DO Primary Care Provider Active Start: November 22, 2024 End: November 22, 2024 Gustabo Pérez AUTOMATION QA ANALYST, AUTOMATION QA ANALYST-C Attending Provider Active S tart: November 22, 2024 End: November 22, 2024 Gustabo Pérez AUTOMATION QA ANALYST, AUTOMATION QA ANALYST-C Referring Provider Active S tart: November 22, [...] Care Provider Active Start: November 30, 2024 sIael Bernabe MD Emergency Provider Active Star t: [...] Active Start: November 30, 2024 Dr. Abraham Rdiley DO Other Provider Active Start: November 30, [...] BE BASED ON THE PRIMARY CLINICAL RECORDS. [facility]. provides no warranty or guarantee of the accuracy or completeness of information in this document.
[2024-12-04] MEDS: HYDROcodone Bitartrate/Apap 5/325 Tablet PO (22:26)
[2024-12-05] VITALS (8 sets, daily range): BP systolic 101–123; BP diastolic 68–80; PULSE 63–76; RESP 16–18; TEMP 35.9–36.6; O2SAT 96–100; BMI 33.1
[2024-12-05 07:14] LABS: Anion Gap 19 (5-15); BUN 47 mg/dL (4-19); BUN/Creat Ratio 18.2 RATIO (10-20); Calcium,Total 9.1 mg/dL (7.6-11.0); Carbon Dioxide 22.4 mmol/L (21.0-32.0); Chloride 96 mmol/L (98-108); Estimated Creatinine Clearance 27.41 ml/min (50-250); Glucose 155 mg/dL (70-99); Potassium 3.2 mmol/L (3.3-5.1)
--- NOTE | 2024-12-05 07:45 | PN.CARD_ITS ---
Subjective Subjective Patient seen and evaluated. Doing much better this morning. Objective Data Vital Signs: Vital Signs Temp Pulse Resp BP Pulse Ox O2 Del Method O2 Flow Rate 97.9 F 63 16 101/68 100 CPAP 2 12/05/24 03:25 12/05/24 03:25 12/05/24 03:25 12/05/24 03:25 12/05/24 03:25 12/05/24 03:25 12/04/24 08:07 FiO2 21 12/04/24 22:55 Oxygen Flow Rate (L/min) 2 Oxygen Delivery Method CPAP Weight: 224 lb 6.889 oz Body Mass Index (BMI) 33.1 Intake & Output: Intake and Output for Last 24 Hours 12/03/24 12/04/24 12/05/24 23:59 23:59 23:59 Intake Total 640.00 / 640.00 Output Total 2090 / 3290 4200 / 4800 1100 / 1100 Balance -2090 / -3050 -3560.00 / -4160.00 -1100 / -1100 Lab / Micro Data 12/04/24 05:02 12/05/24 05:34 Labs: Laboratory Results - last 24 hr 12/04/24 11:16: POC Glucose 207 H 12/04/24 16:44: POC Glucose 147 H 12/04/24 22:20: POC Glucose 151 H 12/05/24 05:34: Sodium 137, Potassium 3.2 L, Chloride 96 L, Carbon Dioxide 22.4, Anion Gap 19 H, BUN 47 H, Creatinine 2.57 H, Estim Creat Clear Calc 27.41 L, Est GFR (MDRD) Non-Af 25 L, BUN/Creatinine Ratio 18.2, Glucose 155 H, Calcium 9.1 12/05/24 06:40: POC Glucose 190 H Cardiology Labs/Tests 12/05/24 05:34: Sodium 137, Potassium 3.2 L, Chloride 96 L, Carbon Dioxide 22.4, Anion Gap 19 H, BUN 47 H, Creatinine 2.57 H, Est GFR (MDRD) Non-Af 25 L, BUN/Creatinine Ratio 18.2, Glucose 155 H, Calcium 9.1 Rhythm: EKG: ECHO: Stress Test: Cardiac Cath: PCI: CT Surgery: Holter monitor: EPS: PPM: CXR: Chest CT Scan: Physical Exam Const alert, oriented x3 and no apparent distress General Appearance: cooperative HEENT hearing grossly normal bilaterally Head and Scalp: atraumatic Eyes EOMs intact bilaterally Neck General: normal visual inspection Chest inspection of chest normal and palpation of chest normal Resp normal respiratory effort Auscultation: clear to auscultation bilaterally Cardio regular rate, regular rhythm, S1 normal heart sound and S2 normal heart sound Jugular Venous Distention: JVD GI normal to inspection, nondistended, normoactive bowel sounds Extremity normal capillary refill and no pedal edema Peripheral Pulses: Yes pulses 2+ throughout and femoral pulses present Skin no rashes or lesions noted Neuro oriented x3 and CN's II-XII intact bilaterally Psych Appearance: grossly normal and appropriate Assessment & Plan Assessment/Plan (1) History of acute inferior wall GA: PLAN: Patient underwent cardiac catheterization and the previously placed stent was noted to be patent. (2) Coronary artery vasospasm: PLAN: - Patient with recent acute thrombotic inferior STEMI, that was complicated with distal PLV dissection that was treated with 2 overlapping stents. - Patient came back with acute chest pain with EKG changes suggestive of another inferior STEMI, cardiac cath as listed above showed patent stents in the RCA in addition to patent stents in the PLV with mild disease in the PDA and mild in- stent restenosis in the RCA. The stents were all noted to be patent. I suspect that the EKG changes were secondary to the akinetic inferior wall with Q waves and presenting with ST elevation. - Patient on aspirin, Brilinta, high potency statins, metoprolol will continue all the above including his isosorbide. Will also add Ranexa 500 mg twice a day We will like to ambulate him around today and see how he does by the afternoon. (3) CHF (congestive heart failure): QUALIFIERS: Heart failure type: diastolic Heart failure chronicity: acute on chronic Qualified Code(s): I50.33 - Acute on chronic diastolic (congestive) heart failure PLAN: - Patient with recent echo showed EF of 45 to 50% with wall motion normalities secondary to recent acute inferolateral STEMI. - LVEDP done yesterday showed LVEDP of 23 mmHg - patient was discharged off diuresis given CKD. - Will restart but with Lasix 40 once daily, will add Jardiance 10 mg p.o. daily given underlying diabetes and for kidney protection. - We recommend nephrology consultation. This can also be done as an outpatient. (4) Dyslipidemia: PLAN: - On statins, will continue. (5) Nonsustained monomorphic ventricular tachycardia: PLAN: Nonsustained ventricular tachycardia. His potassium was noted to be 3.1. This morning it is 3.2. Patient needs aggressive potassium replacement to keep potassium over 4. Would prefer at this level before the patient is discharged. Will also keep magnesium over 2.
[2024-12-05] MEDS: Potassium Chloride Oral Tablet 20 MEQ 40 MEQ PO ×2 (08:24→17:03)
[2024-12-05] MEDS: Heparin Injection (Vial) 5,000 UNIT/ML VIAL 5000 UNIT SC ×2 (08:25→23:07)
[2024-12-05] MEDS: TICAGRELOR 90 MG TABLET PO ×2 (08:25→23:07)
[2024-12-05] MEDS: Magnesium Chloride 64 MG Delay Rel.Tablet 128 MG PO ×2 (08:26→23:08)
[2024-12-05] MEDS: Cholecalciferol (VIT D3) 25 MCG TABLET (1,000 UNITS) PO (08:27)
[2024-12-05] MEDS: Metoprolol(XL)Succ 25 MG Tablet PO (08:28)
[2024-12-05] MEDS: Senna/Docusate Sodium 1 Tablet 2 TABLET PO ×2 (08:28→23:08)
[2024-12-05] MEDS: Potassium Chloride 10mEq/100mL 10 MEQ/100 ML IV.SOLN. 100 MEQ IV BOLUS (08:35)
--- NOTE | 2024-12-05 10:19 | PN.HOSP_ITS ---
Reason for Visit Chief Complaint: Chest Pain with STEMI alert. Subjective Subjective Patient is a 79-year-old male with recent acute inferior 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 STEMI alert was called admitted to a monitored bed for subsequent management Objective Data Objective Data Vital Signs: Vital Signs Temp Pulse Resp BP Pulse Ox O2 Del Method O2 Flow Rate 97.6 F L 70 18 123/80 H 96 Room Air 2 12/05/24 08:06 12/05/24 08:28 12/05/24 08:06 12/05/24 08:06 12/05/24 09:30 12/05/24 09:30 12/04/24 08:07 FiO2 21 12/04/24 22:55 Oxygen Flow Rate (L/min) 2 Oxygen Delivery Method Room Air Weight: 101.8 kg Body Mass Index (BMI) 33.1 Intake & Output: Intake and Output for Last 24 Hours 12/03/24 12/04/24 12/05/24 23:59 23:59 23:59 Intake Total 640.00 / 640.00 Output Total 2090 / 3290 4200 / 4800 1100 / 1100 Balance -2090 / -3050 -3560.00 / -4160.00 -1100 / -1100 Lab / Micro Data 12/04/24 05:02 12/05/24 05:34 Labs: Laboratory Results - last 24 hr 12/04/24 11:16: POC Glucose 207 H 12/04/24 16:44: POC Glucose 147 H 12/04/24 22:20: POC Glucose 151 H 12/05/24 05:34: Sodium 137, Potassium 3.2 L, Chloride 96 L, Carbon Dioxide 22.4, Anion Gap 19 H, BUN 47 H, Creatinine 2.57 H, Estim Creat Clear Calc 27.41 L, Est GFR (MDRD) Non-Af 25 L, BUN/Creatinine Ratio 18.2, Glucose 155 H, Calcium 9.1 12/05/24 06:40: POC Glucose 190 H Physical Exam Narrative GENERAL: cooperative HEENT: Atraumatic; normocephalic EYES; Anicteric, Normal Conjunctiva NECK; supple, normal thyroid, RESPIRATORY: Diminished to auscultation CARDIOVASCULAR: Regular S1 S2, GI: soft, normoactive bowel sounds, : No Renal angle tenderness; EXTREMITIES: No edema, no clubbing, MUSCULOSKELETAL: no muscle wasting NEURO: Awake; no lateralizing signs. SKIN: No Rash PSYCH; Flat affect Assessment & Plan Assessment/Plan (1) STEMI (ST elevation myocardial infarction): PLAN: Plan Patient is a 79-year-old male with recent acute inferior 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 STEMI alert was called admitted to a monitored bed for subsequent management 1. Recent history of acute inferior wall HI with persistent EKG changes; episode of ventricular tachycardia; history of CAD with stenting, chronic HFrEF, hypertension, hyperlipidemia ? Cardiology following. Patient with complex recent medical history. In short, had stent placed to proximal RCA on 11/27. Presented with STEMI on 11/30 and emergent cath showed subacute stent thrombosis at the proximal RCA s/p balloon angioplasty, along with thrombus embolization to the right posterior lateral ventricular branch s/p 2 new drug-eluting stents. Plavix was discontinued and Brilinta was started along with baby aspirin. Discharged midday on 12/02 but presented again as a STEMI alert on the evening of 12/02. Per cardiology, suspect his mild chronic ST elevations are secondary to recent inferior wall infarction. Low likelihood of coronary vasospasm. Patient did have episode of ventricular tachycardia of about 30 beats on morning of 12/04. Potassium low so is being repleted aggressively as below. Per cardiology, will hold off on antiarrhythmic therapy for now. Continue Brilinta, aspirin, statin, metoprolol, nitrate and Ranexa. Okay to restart home Lasix on 12/04 and will start Jardiance as well per cardiology. Continue cardiac monitoring. ? 12/05/2024 2. Hypokalemia ? Corrected per protocol 3. SUSAN on CKD stage IIIb, improving ? Creatinine 2.90 on admit. Baseline is around 1.9. Creatinine peaked at 3.16 on 12/01 and then began downtrending, so patient was discharged on 12/02 with plan to hold Lasix and follow-up outpatient BMP. Creatinine is steadily downtrending, most recent creatinine 2.53 on 12/04. Resuming home Lasix and starting Jardiance on 12/04 as above. Continue to monitor daily BMP and urine output. No need for inpatient nephrology consult currently but cardiology recommending outpatient nephrology follow-up shortly after discharge. ? 12/05/2024 creatinine stable at 2.5 4. Class I obesity with BMI of 33.1 ? Complicating care weight loss advised 5. Diabetes mellitus type II -patient's oral hypoglycemics held. Placed on long acting insulin, Accu-Cheks a.c. and at bedtime and covered with sliding scale insulin 6. GERD ? On PPI 7. Anxiety/depression/insomnia: Continue home fluoxetine and mirtazapine. 8. Chronic pain syndrome ? Continue home hydrocodone?acetaminophen 3 times daily as needed. 9. DVT prophylaxis - Heparin subcu 10. Physical deconditioning ? Requested for PT OT eval and outreach and education social worker to assist with discharge planning Time spent in the patient's overall evaluation,decision-making process, review of diagnostic data, adjustment of management, discussion with other providers, nursing nursing and ancillary staff involved in patient's care documentation, 38 Minutes Charges/Coding Visit Charges Inpatient E&M: 36280 Subs Hosp L2
--- NOTE | 2024-12-05 11:40 | CHAPLAIN ---
Type of Pastoral Visit ___ Initial Visit _x__ Follow-up Visit ___ On-call Visit ___ General Patient Visit ___ Spiritual Assessment ___ Family Conference ___ Bereavement ___ Rapid Response ___ Code Blue ___ Other (describe below) Pastoral Care Referral From ___ Patient ___ Family ___ Nurse ___ Physician ___ Communications Associate ___ Refueling Ramp Attendant _x__ Other (describe below) Sacrament/Intervention _x__ Active listening ___ Anointing ___ Restorationist ___ Bereavement ___ Communion ___ Nicole exploration ___ _x__ Life review ___ Prayer ___ Reconciliation ___ Sacrament of Sick _x__ Supportive presence ___ Wedding ___ Other (describe below) Pastoral Comments follow up to patient that has been seen in very recent admissions; pt gives report on what is happening with his heart and the visits to ED and In Flight 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
--- NOTE | 2024-12-05 15:58 | CASEMGMT ---
ALEX SANTOS updated by therapy that patient would benefit from additional therapy at discharge. ALEX SANTOS in to discuss with patient and SNF list provided. Patient states he would prefer to go to [facility] for additional therapy as he has been there in the past. Patient gave permission for ALEX SANTOS to make referral to [facility]. Patient had no further questions or concerns. ALEX SANTOS made referral to [facility], awaiting response. CM will continue to follow this patient and plan for a safe discharge.
--- NOTE | 2024-12-05 16:42 | CASEMGMT ---
Social Work SW did create a list of halfway facilities in network w/pt's insurance, in pt's preferred geographical area, and complete w/quality and resource use data. ANNIE Reynoso
[2024-12-05] MEDS: HYDROcodone Bitartrate/Apap 5/325 Tablet PO (18:21)
[2024-12-06 00:25] VITALS: RESP 12
[2024-12-06 03:20] VITALS: BP 109/74; PULSE 60; RESP 16; TEMP 36.6; O2SAT 98
[2024-12-06 06:00] VITALS: BMI 33.0
[2024-12-06 06:17] LABS: Hematocrit 35.0 % (40-54); Hemoglobin 11.6 g/dL (13.0-16.5); Immature Granulocytes Count 0.060 X10^3/uL (0.0-0.0); Mean Corp Hgb Conc 33.1 g/dL (32-36); Mean Corpuscular Volume 87.9 fL (80-94); Mean Platelet Vol. 12.9 fl (6.2-12.0); NRBC Flagged by Analyzer 0 % (0-5); Platelet Count 140 K/mm3 (150-450); RBC Distribution Width CV 13.6 % (11.6-14.6); RBC Distribution Width SD 44.0 fl (35.1-43.9); Red Blood Count 3.98 M/mm3 (4.6-6.2); White Blood Count 9.4 K/mm3 (4.4-11.0)
[2024-12-06 07:05] LABS: Anion Gap 17 (5-15); BUN 43 mg/dL (4-19); BUN/Creat Ratio 17.0 RATIO (10-20); Calcium,Total 9.0 mg/dL (7.6-11.0); Carbon Dioxide 21.9 mmol/L (21.0-32.0); Chloride 97 mmol/L (98-108); Estimated Creatinine Clearance 1.34 ml/min (50-250); Glucose 161 mg/dL (70-99); Magnesium 2.4 mg/dL (1.5-2.2); Potassium 3.5 mmol/L (3.3-5.1)
--- NOTE | 2024-12-06 07:47 | PN.CARD_ITS ---
Subjective Subjective Patient seen and evaluated. Appears to be doing better this morning. Telemetry demonstrates no significant arrhythmias Objective Data Vital Signs: Vital Signs Temp Pulse Resp BP Pulse Ox O2 Del Method O2 Flow Rate 97.9 F 60 16 109/74 98 Room Air 2 12/06/24 03:20 12/06/24 03:20 12/06/24 03:20 12/06/24 03:20 12/06/24 03:20 12/06/24 03:20 12/04/24 08:07 FiO2 21 12/06/24 00:25 Oxygen Flow Rate (L/min) 2 Oxygen Delivery Method Room Air Weight: 223 lb 5.252 oz Body Mass Index (BMI) 33.0 Intake & Output: Intake and Output for Last 24 Hours 12/04/24 12/05/24 12/06/24 23:59 23:59 23:59 Intake Total 640.00 / 640.00 100 / 100 Output Total 4200 / 4800 1600 / 2200 1000 / 1000 Balance -3560.00 / -4160.00 -1500 / -2100 -1000 / -1000 Lab / Micro Data 12/06/24 Unknown 12/06/24 05:55 Labs: Laboratory Results - last 24 hr 12/05/24 12:12: POC Glucose 194 H 12/05/24 16:59: POC Glucose 183 H 12/05/24 23:05: POC Glucose 196 H 12/06/24 05:55: Sodium 135, Potassium 3.5, Chloride 97 L, Carbon Dioxide 21.9, A nion Gap 17 H, BUN 43 H, Creatinine 2.53 H, Estim Creat Clear Calc 1.34 L*, Est GFR (MDRD) Non-Af 25 L, BUN/Creatinine Ratio 17.0, Glucose 161 H, Calcium 9.0, Phosphorus 2.9, Magnesium 2.4 H 12/06/24 06:37: POC Glucose 165 H 12/06/24 : WBC 9.4, RBC 3.98 L, Hgb 11.6 L, Hct 35.0 L, MCV 87.9, MCH 29.1, MCHC 33.1, RDW Std Deviation 44.0 H, RDW Coeff of Adrian 13.6, Plt Count 140 L, MPV 12.9 H, Immature Gran % (Auto) 0.600, Neut % (Auto) 72.7 H, Lymph % (Auto) 11.6 L, M peyton % (Auto) 12.9 H, Eos % (Auto) 2.0, Baso % (Auto) 0.2, Absolute Neuts (auto) 6.8, Absolute Lymphs (auto) 1.09, Nucleated RBC % 0 Cardiology Labs/Tests 12/06/24 05:55: Sodium 135, Potassium 3.5, Chloride 97 L, Carbon Dioxide 21.9, A nion Gap 17 H, BUN 43 H, Creatinine 2.53 H, Est GFR (MDRD) Non-Af 25 L, BUN/Creatinine Ratio 17.0, Glucose 161 H, Calcium 9.0, Phosphorus 2.9, Magnesium 2.4 H 12/06/24 : WBC 9.4, RBC 3.98 L, Hgb 11.6 L, Hct 35.0 L, MCV 87.9, MCH 29.1, MCHC 33.1, Plt Count 140 L, MPV 12.9 H, Immature Gran % (Auto) 0.600, Neut % (Auto) 72.7 H, Lymph % (Auto) 11.6 L, Bryan % (Auto) 12.9 H, Eos % (Auto) 2.0, Baso % (Auto) 0.2, Absolute Neuts (auto) 6.8, Nucleated RBC % 0 Rhythm: EKG: ECHO: Stress Test: Cardiac Cath: PCI: CT Surgery: Holter monitor: EPS: PPM: CXR: Chest CT Scan: Physical Exam Const alert, oriented x3 and no apparent distress General Appearance: cooperative HEENT hearing grossly normal bilaterally Head and Scalp: atraumatic Eyes EOMs intact bilaterally Neck General: normal visual inspection Chest inspection of chest normal and palpation of chest normal Resp normal respiratory effort Auscultation: clear to auscultation bilaterally Cardio regular rate, regular rhythm, S1 normal heart sound and S2 normal heart sound Jugular Venous Distention: JVD GI normal to inspection, nondistended, normoactive bowel sounds Extremity normal capillary refill and no pedal edema Peripheral Pulses: Yes pulses 2+ throughout and femoral pulses present Skin no rashes or lesions noted Neuro oriented x3 and CN's II-XII intact bilaterally Psych Appearance: grossly normal and appropriate Assessment & Plan Assessment/Plan (1) History of acute inferior wall ID: PLAN: Patient underwent cardiac catheterization and the previously placed stent was noted to be patent. (2) Coronary artery vasospasm: PLAN: - Patient with recent acute thrombotic inferior STEMI, that was complicated with distal PLV dissection that was treated with 2 overlapping stents. - Patient came back with acute chest pain with EKG changes suggestive of another inferior STEMI, cardiac cath as listed above showed patent stents in the RCA in addition to patent stents in the PLV with mild disease in the PDA and mild in- stent restenosis in the RCA. The stents were all noted to be patent. I suspect that the EKG changes were secondary to the akinetic inferior wall with Q waves and presenting with ST elevation. - Patient on aspirin, Brilinta, high potency statins, metoprolol will continue all the above including his isosorbide. Will also continue Ranexa 500 mg twice a day We will like to ambulate him around today and see how he does by the afternoon and then discharge. (3) CHF (congestive heart failure): QUALIFIERS: Heart failure type: diastolic Heart failure chronicity: acute on chronic Qualified Code(s): I50.33 - Acute on chronic diastolic (congestive) heart failure PLAN: - Patient with recent echo showed EF of 45 to 50% with wall motion normalities secondary to recent acute inferolateral STEMI. - LVEDP done yesterday showed LVEDP of 23 mmHg - patient was discharged off diuresis given CKD. Will add spironolactone 25 mg to help with potassium sparing - Will restart but with Lasix 40 once daily, will add Jardiance 10 mg p.o. daily given underlying diabetes and for kidney protection. - We recommend nephrology consultation. This can also be done as an outpatient. (4) Dyslipidemia: PLAN: - On statins, will continue. (5) Nonsustained monomorphic ventricular tachycardia: PLAN: Nonsustained ventricular tachycardia. No recurrence of the above. His potassium is 3.5 this morning. Would add spironolactone to his regimen. Would prefer that he get a 48-hour Holter monitor placed on prior to discharge. Patient needs aggressive potassium replacement to keep potassium over 4. Would prefer at this level before the patient is discharged. Will also keep magnesium over 2.
--- NOTE | 2024-12-06 08:01 | EKG12_ITS ---
Test Reason : EKGA Blood Pressure : */* mmHG Vent. Rate : 66 BPM Atrial Rate : 66 BPM P-R Int : 194 ms QRS Dur : 100 ms QT Int : 412 ms P-R-T Axes : 72 -9 102 degrees QTcB Int : 431 ms Critical Test Result: STEMI Normal sinus rhythm Low voltage QRS Inferior infarct (cited on or before 04-Dec-2024) Confirmed by NAOMIE PALOMO, PARVEZ ([id number]), newspaper managing editor VERONICA SCOTT ([id number]) on 12/06/2024 12:59:47 PM Referred By: Mickey Simpson Confirmed By: PARVEZ AKBAR MD
[2024-12-06 08:02] VITALS: BP 121/77; PULSE 69; RESP 14; TEMP 36.7; O2SAT 98
[2024-12-06] MEDS: Potassium Chloride Oral Tablet 20 MEQ 40 MEQ PO (08:06)
[2024-12-06] MEDS: TICAGRELOR 90 MG TABLET PO (08:07)
[2024-12-06 08:08] VITALS: PULSE 69
[2024-12-06] MEDS: Metoprolol(XL)Succ 25 MG Tablet PO (08:08)
[2024-12-06] MEDS: Magnesium Chloride 64 MG Delay Rel.Tablet 128 MG PO (08:08)
[2024-12-06] MEDS: Cholecalciferol (VIT D3) 25 MCG TABLET (1,000 UNITS) PO (08:09)
--- NOTE | 2024-12-06 08:38 | PN.HOSP_ITS ---
Reason for Visit Chief Complaint: Chest Pain with STEMI alert. Subjective Subjective Patient seen remains physically deconditioned. Was seen in consultation by physical therapy recommendation is for patient to be discharged to a senior care facility case management subsequently consulted Objective Data Objective Data Vital Signs: Vital Signs Temp Pulse Resp BP Pulse Ox O2 Del Method O2 Flow Rate 98.1 F 69 14 121/77 H 98 Room Air 2 12/06/24 08:02 12/06/24 08:08 12/06/24 08:02 12/06/24 08:02 12/06/24 08:02 12/06/24 08:02 12/04/24 08:07 FiO2 21 12/06/24 00:25 Oxygen Flow Rate (L/min) 2 Oxygen Delivery Method Room Air Weight: 101.3 kg Body Mass Index (BMI) 33.0 Intake & Output: Intake and Output for Last 24 Hours 12/04/24 12/05/24 12/06/24 23:59 23:59 23:59 Intake Total 640.00 / 640.00 100 / 100 Output Total 4200 / 4800 1600 / 2200 1000 / 1000 Balance -3560.00 / -4160.00 -1500 / -2100 -1000 / -1000 Lab / Micro Data 12/06/24 Unknown 12/06/24 05:55 Labs: Laboratory Results - last 24 hr 12/05/24 12:12: POC Glucose 194 H 12/05/24 16:59: POC Glucose 183 H 12/05/24 23:05: POC Glucose 196 H 12/06/24 05:55: Sodium 135, Potassium 3.5, Chloride 97 L, Carbon Dioxide 21.9, A nion Gap 17 H, BUN 43 H, Creatinine 2.53 H, Estim Creat Clear Calc 1.34 L*, Est GFR (MDRD) Non-Af 25 L, BUN/Creatinine Ratio 17.0, Glucose 161 H, Calcium 9.0, Phosphorus 2.9, Magnesium 2.4 H 12/06/24 06:37: POC Glucose 165 H 12/06/24 : WBC 9.4, RBC 3.98 L, Hgb 11.6 L, Hct 35.0 L, MCV 87.9, MCH 29.1, MCHC 33.1, RDW Std Deviation 44.0 H, RDW Coeff of Adrian 13.6, Plt Count 140 L, MPV 12.9 H, Immature Gran % (Auto) 0.600, Neut % (Auto) 72.7 H, Lymph % (Auto) 11.6 L, M peyton % (Auto) 12.9 H, Eos % (Auto) 2.0, Baso % (Auto) 0.2, Absolute Neuts (auto) 6.8, Absolute Lymphs (auto) 1.09, Nucleated RBC % 0 Physical Exam Narrative GENERAL: cooperative HEENT: Atraumatic; normocephalic EYES; Anicteric, Normal Conjunctiva NECK; supple, normal thyroid, RESPIRATORY: Diminished to auscultation CARDIOVASCULAR: Regular S1 S2, GI: soft, normoactive bowel sounds, : No Renal angle tenderness; EXTREMITIES: No edema, no clubbing, MUSCULOSKELETAL: no muscle wasting NEURO: Awake; no lateralizing signs. SKIN: No Rash PSYCH; Flat affect Assessment & Plan Assessment/Plan (1) STEMI (ST elevation myocardial infarction): PLAN: Plan Patient is a 79-year-old male with recent acute inferior 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 STEMI alert was called admitted to a monitored bed for subsequent management 1. Recent history of acute inferior wall MN with persistent EKG changes; episode of ventricular tachycardia; history of CAD with stenting, chronic HFrEF, hypertension, hyperlipidemia ? Cardiology following. Patient with complex recent medical history. In short, had stent placed to proximal RCA on 11/27. Presented with STEMI on 11/30 and emergent cath showed subacute stent thrombosis at the proximal RCA s/p balloon angioplasty, along with thrombus embolization to the right posterior lateral ventricular branch s/p 2 new drug-eluting stents. Plavix was discontinued and Brilinta was started along with baby aspirin. Discharged midday on 12/02 but presented again as a STEMI alert on the evening of 12/02. Per cardiology, suspect his mild chronic ST elevations are secondary to recent inferior wall infarction. Low likelihood of coronary vasospasm. Patient did have episode of ventricular tachycardia of about 30 beats on morning of 12/04. Potassium low so is being repleted aggressively as below. Per cardiology, will hold off on antiarrhythmic therapy for now. Continue Brilinta, aspirin, statin, metoprolol, nitrate and Ranexa. Okay to restart home Lasix on 12/04 and will start Jardiance as well per cardiology. Continue cardiac monitoring. ? 12/06/2024; patient remains on guideline directed medical therapy 2. Hypokalemia ? Corrected per protocol 3. SUSAN on CKD stage IIIb, improving ? Creatinine 2.90 on admit. Baseline is around 1.9. Creatinine peaked at 3.16 on 12/01 and then began downtrending, so patient was discharged on 12/02 with plan to hold Lasix and follow-up outpatient BMP. Creatinine is steadily downtrending, most recent creatinine 2.53 on 12/04. Resuming home Lasix and starting Jardiance on 12/04 as above. Continue to monitor daily BMP and urine output. No need for inpatient nephrology consult currently but cardiology recommending outpatient nephrology follow-up shortly after discharge. ? 12/05/2024 creatinine stable at 2.5 4. Class I obesity with BMI of 33.1 ? Complicating care weight loss advised 5. Diabetes mellitus type II -patient's oral hypoglycemics held. Placed on long acting insulin, Accu-Cheks a.c. and at bedtime and covered with sliding scale insulin 6. GERD ? On PPI 7. Anxiety/depression/insomnia: Continue home fluoxetine and mirtazapine. 8. Chronic pain syndrome ? Continue home hydrocodone?acetaminophen 3 times daily as needed. 9. DVT prophylaxis - Heparin subcu 10. Physical deconditioning?age related frailty ? Requested for PT OT eval and protective services social worker to assist with discharge planning ? 12/06/2024 plan is for patient to be discharged to a senior care facility pending bed availability as well as insurance precertification Time spent in the patient's overall evaluation,decision-making process, review of diagnostic data, adjustment of management, discussion with other providers, nursing nursing and ancillary staff involved in patient's care documentation, 36 Minutes Charges/Coding Visit Charges Inpatient E&M: 95288 Subs Hosp L2 Date medically ready for discharge: 12/06/24 Reason for DC delay: Precert pending from insurance
--- NOTE | 2024-12-06 09:21 | CASEMGMT ---
RN CM updated by Ana in [facility], no beds available at this time. RN CM in to update patient. Patient voiced understanding and states his next choice is [facility]. Per hospitalist, patient is ready for discharge today. CM to send referral to [facility]. CM will continue to follow this patient and plan for a safe discharge.
--- NOTE | 2024-12-06 09:56 | CASEMGMT ---
Discharge Planning Referral sent to [facility]. Maria R Elliott DC Planning Asst.
[2024-12-06] MEDS: Senna/Docusate Sodium 1 Tablet 2 TABLET PO (10:29)
[2024-12-06] MEDS: Heparin Injection (Vial) 5,000 UNIT/ML VIAL 5000 UNIT SC (10:29)
--- NOTE | 2024-12-06 11:12 | CASEMGMT ---
[facility] has accepted. RN CM updated. Maria R Elliott DC Planning Asst.
--- NOTE | 2024-12-06 11:30 | CASEMGMT ---
ALEX SANTOS updated hospitalist that patient has been accepted to [facility], per hospitalist patient to discharge today. ALEX SANTOS updated patient and daughter that patient has been accepted to [facility] and will discharge today. Patient stated he is to follow-up with sleep lab to belt picker his new cpap and asked if he could get it here. ALEX SANTOS called [facility] Sleep Lab and spoke to Angelina. Per Angelina, SNF will need to order cpap for at facility and then [facility]. Angelina to fax this ALEX SANTOS cpap script to forward to [facility]. ALEX SANTOS updated patient regarding cpap, patient and daughter voiced understanding. Patient had no further questions. ALEX SANTOS updated DC Water Project Manager regarding cpap information.
--- NOTE | 2024-12-06 11:46 | DS.PCM_ITS ---
Providers Date of Admission: 12/03/24 Date of Discharge: 12/06/24 Primary Care Physician: Dr. Victor M Luke, Consultations 12/03/24 05:42 Consult: Cardiology Routine Consulting Provider: Mickey Simpson Reason for Consult: coronary vasospasm after recent inferior wall stemi EMERGENT Consult: No MD Notified: Yes Date Notified: 12/03/24 Time Notified: 06:55 Method of Notification: Verbal Reason For Visit: STEMI Diagnosis Discharge Diagnosis (1) STEMI (ST elevation myocardial infarction): Status: Resolved Code(s): I21.3 - ST elevation (STEMI) myocardial infarction of unspecified site Plan Patient is a 79-year-old male with recent acute inferior 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 STEMI alert was called admitted to a monitored bed for subsequent management 1. Recent history of acute inferior wall MA with persistent EKG changes; episode of ventricular tachycardia; history of CAD with stenting, chronic HFrEF, hypertension, hyperlipidemia ? Cardiology following. Patient with complex recent medical history. In short, had stent placed to proximal RCA on 11/27. Presented with STEMI on 11/30 and emergent cath showed subacute stent thrombosis at the proximal RCA s/p balloon angioplasty, along with thrombus embolization to the right posterior lateral ventricular branch s/p 2 new drug-eluting stents. Plavix was discontinued and Brilinta was started along with baby aspirin. Discharged midday on 12/02 but presented again as a STEMI alert on the evening of 12/02. Per cardiology, suspect his mild chronic ST elevations are secondary to recent inferior wall infarction. Low likelihood of coronary vasospasm. Patient did have episode of ventricular tachycardia of about 30 beats on morning of 12/04. Potassium low so is being repleted aggressively as below. Per cardiology, will hold off on antiarrhythmic therapy for now. Continue Brilinta, aspirin, statin, metoprolol, nitrate and Ranexa. Okay to restart home Lasix on 12/04 and will start Jardiance as well per cardiology. Continue cardiac monitoring. ? 12/06/2024; patient remains on guideline directed medical therapy 2. Hypokalemia ? Corrected per protocol 3. SUSAN on CKD stage IIIb, improving ? Creatinine 2.90 on admit. Baseline is around 1.9. Creatinine peaked at 3.16 on 12/01 and then began downtrending, so patient was discharged on 12/02 with plan to hold Lasix and follow-up outpatient BMP. Creatinine is steadily downtrending, most recent creatinine 2.53 on 12/04. Resuming home Lasix and starting Jardiance on 12/04 as above. Continue to monitor daily BMP and urine output. No need for inpatient nephrology consult currently but cardiology recommending outpatient nephrology follow-up shortly after discharge. ? 12/05/2024 creatinine stable at 2.5 4. Class I obesity with BMI of 33.1 ? Complicating care weight loss advised 5. Diabetes mellitus type II -patient's oral hypoglycemics held. Placed on long acting insulin, Accu-Cheks a.c. and at bedtime and covered with sliding scale insulin 6. GERD ? On PPI 7. Anxiety/depression/insomnia: Continue home fluoxetine and mirtazapine. 8. Chronic pain syndrome ? Continue home hydrocodone?acetaminophen 3 times daily as needed. 9. DVT prophylaxis - Heparin subcu 10. Physical deconditioning?age related frailty ? Requested for PT OT eval and perinatal social worker to assist with discharge planning ? 12/06/2024 plan is for patient to be discharged to a custodial facility pending bed availability as well as insurance precertification Time spent in the patient's overall evaluation,decision-making process, review of diagnostic data, adjustment of management, discussion with other providers, nursing nursing and ancillary staff involved in patient's care documentation, 36 Minutes Medications at Discharge Home Medications aspirin 81 mg tablet,delayed release 81 mg PO DAILY@0800 health maintenance 01/21/17 mirtazapine 15 mg tablet (Remeron) 15 mg PO QHS sleep 09/21/18 cyanocobalamin (vitamin B-12) 1,000 mcg capsule 1,000 mcg PO DAILY vitamin ##0 06/01/19 magnesium oxide 400 mg (241.3 mg magnesium) tablet 800 mg PO DAILY SUPPLEMENT 08/01/21 cetirizine 10 mg tablet 10 mg PO DAILY PRN Allergic Reaction 09/16/21 cholecalciferol (vitamin D3) 25 mcg (1,000 unit) tablet [address] 09/16/21 fluoxetine 40 mg capsule 80 mg PO DAILY DEPRESSION 90 days #180 caps 09/16/21 acetaminophen 325 mg tablet 650 mg PO Q6H PRN Pain -02/0910/12/23 atorvastatin 40 mg tablet 40 mg PO QHS CHOLESTEROL #90 tabs 06/14/24 nitroglycerin 0.4 mg sublingual tablet 0.4 mg sublingual Q5-15M PRN CHEST PAIN #25 tabs 06/14/24 pantoprazole 40 mg tablet,delayed release 40 mg PO DAILY GERD #90 tabs 06/14/24 potassium chloride 20 mEq tablet,extended release(part/cryst) 60 meq (3 x 20 mEq) PO BID supplement #180 tabs 06/14/24 amlodipine 5 mg tablet 5 mg PO QPM blood pressure 10/25/24 metolazone 2.5 mg tablet 2.5 mg PO QDAY diuretic 10/25/24 metoprolol succinate 25 mg tablet,extended release 24 hr 25 mg PO DAILY blood pressure #30 tabs 10/25/24 ticagrelor 90 mg tablet (Brilinta) 90 mg PO BID #60 tabs 12/02/24 empagliflozin 10 mg tablet (Jardiance) 10 mg PO DAILY #90 tabs 12/06/24 furosemide 40 mg tablet 40 mg PO DAILY #90 tabs 12/06/24 insulin lispro 100 unit/mL subcutaneous pen (Humalog KwikPen (U-100) Insulin) See Protocol subcut ACHS #0 mL 12/06/24 ranolazine 500 mg tablet,extended release,12 hr 500 mg PO BID #180 tabs 12/06/24 spironolactone 25 mg tablet 25 mg PO DAILY #90 tabs 12/06/24 Physical Exam Narrative GENERAL: cooperative HEENT: Atraumatic; normocephalic EYES; Anicteric, Normal Conjunctiva NECK; supple, normal thyroid, RESPIRATORY: Diminished to auscultation CARDIOVASCULAR: Regular S1 S2, GI: soft, normoactive bowel sounds, : No Renal angle tenderness; EXTREMITIES: No edema, no clubbing, MUSCULOSKELETAL: no muscle wasting NEURO: Awake; no lateralizing signs. SKIN: No Rash PSYCH; Flat affect Weight / BMI Weight Weight: 101.3 kg Body Mass Index (BMI) 33.0 ABG / Lab / Microbiology Data 12/06/24 Unknown 12/06/24 05:55 Laboratory: Laboratory Results - last 24 hr 12/05/24 12:12: POC Glucose 194 H 12/05/24 16:59: POC Glucose 183 H 12/05/24 23:05: POC Glucose 196 H 12/06/24 05:55: Sodium 135, Potassium 3.5, Chloride 97 L, Carbon Dioxide 21.9, A nion Gap 17 H, BUN 43 H, Creatinine 2.53 H, Estim Creat Clear Calc 1.34 L*, Est GFR (MDRD) Non-Af 25 L, BUN/Creatinine Ratio 17.0, Glucose 161 H, Calcium 9.0, Phosphorus 2.9, Magnesium 2.4 H 12/06/24 06:37: POC Glucose 165 H 12/06/24 11:10: POC Glucose 197 H 12/06/24 : WBC 9.4, RBC 3.98 L, Hgb 11.6 L, Hct 35.0 L, MCV 87.9, MCH 29.1, MCHC 33.1, RDW Std Deviation 44.0 H, RDW Coeff of Adrian 13.6, Plt Count 140 L, MPV 12.9 H, Immature Gran % (Auto) 0.600, Neut % (Auto) 72.7 H, Lymph % (Auto) 11.6 L, M peyton % (Auto) 12.9 H, Eos % (Auto) 2.0, Baso % (Auto) 0.2, Absolute Neuts (auto) 6.8, Absolute Lymphs (auto) 1.09, Nucleated RBC % 0 D/C Instructions DC O2, CPAP, BIPAP Needs Home O2 Discharge instructions: No Meaningful Use Info Meaningful Use Meaningful Use Diagnoses (Choose all that apply): None applicable Discharge Plan Admission Admit Date/Time: 12/03/24 02:01 Attending Provider: Alex Sanon Primary Care Provider: Victor M Luke Consulting Providers: Abraham Ridley; Mickey Simpson; Ramonita Herron Discharge Orders/Prescriptions Prescriptions: New furosemide 40 mg Tablet 40 mg PO DAILY Qty: 90 0RF spironolactone 25 mg Tablet 25 mg PO DAILY Qty: 90 0RF insulin lispro [Humalog KwikPen Insulin] 100 unit/mL Insulin Pen See Protocol subcut ACHS Qty: 0 0RF Protocol: 3. Sliding Scale Insulin Med Dosing Condition: 150-189 mg/dl = 1 unit Condition: 190-229 mg/dl = 2 units Condition: 230-269 mg/dl = 3 units Condition: 270-309 mg/dl = 4 units Condition: 310-349 mg/dl = 5 units Condition: 350-399 mg/dl = 6 units Condition: 400-449 mg/dl = 7 units Condition: Greater than 449 call physician Protocol Text: Suggested for: - Patients on Total Daily Insulin Dose of 37-55 units - Obese, infected, or steroid patients MEDIUM DOSING ALGORITHIM ranolazine 500 mg Tablet Extended Release 12 Hr 500 mg PO BID Qty: 180 0RF Jardiance 10 mg Tablet 10 mg PO DAILY Qty: 90 0RF Continued fluoxetine 40 mg capsule 80 mg PO DAILY 90 Days Qty: 180 magnesium oxide 400 mg (241.3 mg magnesium) tablet 800 mg PO DAILY cetirizine 10 mg tablet 10 mg PO DAILY PRN (Reason: Allergic Reaction) cholecalciferol (vitamin D3) 25 mcg (1,000 unit) tablet 25 mcg PO DAILY amlodipine 5 mg tablet 5 mg PO QPM metolazone 2.5 mg tablet 2.5 mg PO QDAY metoprolol succinate 25 mg tablet extended release 24 hr 25 mg PO DAILY Qty: 30 11RF aspirin 81 MG tablet 81 mg PO DAILY@0800 cyanocobalamin (vitamin B-12) 1,000 MCG capsule 1,000 mcg PO DAILY Qty: 0 acetaminophen 325 MG tablet 650 mg PO Q6H PRN (Reason: Pain -02/09) ticagrelor [Brilinta] 90 mg Tablet 90 mg PO BID Qty: 60 11RF mirtazapine [Remeron] 15 mg tablet 15 mg PO QHS nitroglycerin 0.4 mg tablet, sublingual 0.4 mg SUBLINGUAL Q5-15M PRN (Reason: CHEST PAIN) Qty: 25 3RF atorvastatin 40 mg tablet 40 mg PO QHS Qty: 90 3RF potassium chloride 20 mEq tablet,ER particles/crystals 60 meq PO BID Qty: 180 3RF pantoprazole 40 mg tablet,delayed release (DR/EC) 40 mg PO DAILY Qty: 90 3RF Discontinued glimepiride 4 mg tablet 4 mg PO QDAY hydrocodone-acetaminophen 5-325 mg tablet 1 tab PO TID PRN (Reason: pain) isosorbide mononitrate 60 mg tablet extended release 24 hr 60 mg PO BID Qty: 90 3RF furosemide 80 mg Tablet 80 mg PO DAILY Qty: 30 6RF losartan 100 mg tablet 100 mg PO DAILY Qty: 90 3RF spironolactone 50 mg tablet 50 mg PO DAILY Qty: 90 3RF Referrals / Follow Up: Marcin Araujo MD [Med Staff - Active Staff] - Within 1 Month Victor M Luke DO [Primary Care Provider] - Within 2 Weeks Disposition Disposition (needs filled in before D/C Order can be placed): [facility] Facility Charges/Coding Visit Charges Inpatient E&M: 41828 Disch Hosp >30min
[2024-12-06 11:58] LABS: Anion Gap 17 (5-15); BUN 40 mg/dL (4-19); BUN/Creat Ratio 16.1 RATIO (10-20); Calcium,Total 9.2 mg/dL (7.6-11.0); Carbon Dioxide 20.6 mmol/L (21.0-32.0); Chloride 96 mmol/L (98-108); Estimated Creatinine Clearance 28.56 ml/min (50-250); Glucose 186 mg/dL (70-99); Potassium 4.1 mmol/L (3.3-5.1)
--- NOTE | 2024-12-06 11:59 | PCM.TXEXTCAR ---
Diet Diet Order/Speech Therapy: INPATIENT Hospital Diet / Speech Therapy Order(s) 12/02/24 21:59 Diet: Cardiac - Heart Healthy Routine Orders/Code Status Code Status: Full Code DC O2, CPAP, BIPAP needs Home O2 Discharge instructions: Yes Type of respiratory needs?: CPAP CPAP instructions: CPAP at night Wound(s) bilateral elbows: Wound Type: Abrasion left knee: Wound Type: Abrasion left wrist: Wound Type: Surgical Incision right groin: Wound Type: Post heart cath site Therapies Physical Therapy: Eval and Treat Occupational Therapy: Eval and Treat Problem/Diagnosis (1) STEMI (ST elevation myocardial infarction): Status: Resolved Code(s): I21.3 - ST elevation (STEMI) myocardial infarction of unspecified site Plan Patient is a 79-year-old male with recent acute inferior 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 STEMI alert was called admitted to a monitored bed for subsequent management 1. Recent history of acute inferior wall [place] with persistent EKG changes; episode of ventricular tachycardia; history of CAD with stenting, chronic HFrEF, hypertension, hyperlipidemia ? Cardiology following. Patient with complex recent medical history. In short, had stent placed to proximal RCA on 11/27. Presented with STEMI on 11/30 and emergent cath showed subacute stent thrombosis at the proximal RCA s/p balloon angioplasty, along with thrombus embolization to the right posterior lateral ventricular branch s/p 2 new drug-eluting stents. Plavix was discontinued and Brilinta was started along with baby aspirin. Discharged midday on 12/02 but presented again as a STEMI alert on the evening of 12/02. Per cardiology, suspect his mild chronic ST elevations are secondary to recent inferior wall infarction. Low likelihood of coronary vasospasm. Patient did have episode of ventricular tachycardia of about 30 beats on morning of 12/04. Potassium low so is being repleted aggressively as below. Per cardiology, will hold off on antiarrhythmic therapy for now. Continue Brilinta, aspirin, statin, metoprolol, nitrate and Ranexa. Okay to restart home Lasix on 12/04 and will start Jardiance as well per cardiology. Continue cardiac monitoring. ? 12/06/2024; patient remains on guideline directed medical therapy 2. Hypokalemia ? Corrected per protocol 3. SUSAN on CKD stage IIIb, improving ? Creatinine 2.90 on admit. Baseline is around 1.9. Creatinine peaked at 3.16 on 12/01 and then began downtrending, so patient was discharged on 12/02 with plan to hold Lasix and follow-up outpatient BMP. Creatinine is steadily downtrending, most recent creatinine 2.53 on 12/04. Resuming home Lasix and starting Jardiance on 12/04 as above. Continue to monitor daily BMP and urine output. No need for inpatient nephrology consult currently but cardiology recommending outpatient nephrology follow-up shortly after discharge. ? 12/05/2024 creatinine stable at 2.5 4. Class I obesity with BMI of 33.1 ? Complicating care weight loss advised 5. Diabetes mellitus type II -patient's oral hypoglycemics held. Placed on long acting insulin, Accu-Cheks a.c. and at bedtime and covered with sliding scale insulin 6. GERD ? On PPI 7. Anxiety/depression/insomnia: Continue home fluoxetine and mirtazapine. 8. Chronic pain syndrome ? Continue home hydrocodone?acetaminophen 3 times daily as needed. 9. DVT prophylaxis - Heparin subcu 10. Physical deconditioning?age related frailty ? Requested for PT OT eval and [employer] social worker to assist with discharge planning ? 12/06/2024 plan is for patient to be discharged to a senior care facility pending bed availability as well as insurance precertification Time spent in the patient's overall evaluation,decision-making process, review of diagnostic data, adjustment of management, discussion with other providers, nursing nursing and ancillary staff involved in patient's care documentation, 36 Minutes Allergies/Procedures Done in Hospital Allergies No Known Allergies Allergy (Verified 11/26/24 17:43) Type of Care/Length of Stay Estimated LOS: Convalescent Care Less Than 30 days Type of Care Needed: Skilled Rehab Potential: Good Prognosis: Good Additional Orders/Day of Discharge Day of Discharge: 12/06/24 Discharge Plan Admission Admit Date/Time: 12/03/24 02:01 Attending Provider: Alex Sanon Primary Care Provider: Victor M Luke Consulting Providers: Abraham Ridley; Mickey Simpson; Ramonita Herron Discharge Orders/Prescriptions Prescriptions: New furosemide 40 mg Tablet 40 mg PO DAILY Qty: 90 0RF spironolactone 25 mg Tablet 25 mg PO DAILY Qty: 90 0RF insulin lispro [Humalog KwikPen Insulin] 100 unit/mL Insulin Pen See Protocol subcut ACHS Qty: 0 0RF Protocol: 3. Sliding Scale Insulin Med Dosing Condition: 150-189 mg/dl = 1 unit Condition: 190-229 mg/dl = 2 units Condition: 230-269 mg/dl = 3 units Condition: 270-309 mg/dl = 4 units Condition: 310-349 mg/dl = 5 units Condition: 350-399 mg/dl = 6 units Condition: 400-449 mg/dl = 7 units Condition: Greater than 449 call physician Protocol Text: Suggested for: - Patients on Total Daily Insulin Dose of 37-55 units - Obese, infected, or steroid patients MEDIUM DOSING ALGORITHIM ranolazine 500 mg Tablet Extended Release 12 Hr 500 mg PO BID Qty: 180 0RF Jardiance 10 mg Tablet 10 mg PO DAILY Qty: 90 0RF Continued fluoxetine 40 mg capsule 80 mg PO DAILY 90 Days Qty: 180 magnesium oxide 400 mg (241.3 mg magnesium) tablet 800 mg PO DAILY cetirizine 10 mg tablet 10 mg PO DAILY PRN (Reason: Allergic Reaction) cholecalciferol (vitamin D3) 25 mcg (1,000 unit) tablet 25 mcg PO DAILY amlodipine 5 mg tablet 5 mg PO QPM metolazone 2.5 mg tablet 2.5 mg PO QDAY metoprolol succinate 25 mg tablet extended release 24 hr 25 mg PO DAILY Qty: 30 11RF aspirin 81 MG tablet 81 mg PO DAILY@0800 cyanocobalamin (vitamin B-12) 1,000 MCG capsule 1,000 mcg PO DAILY Qty: 0 acetaminophen 325 MG tablet 650 mg PO Q6H PRN (Reason: Pain -02/09) ticagrelor [Brilinta] 90 mg Tablet 90 mg PO BID Qty: 60 11RF mirtazapine [Remeron] 15 mg tablet 15 mg PO QHS nitroglycerin 0.4 mg tablet, sublingual 0.4 mg SUBLINGUAL Q5-15M PRN (Reason: CHEST PAIN) Qty: 25 3RF atorvastatin 40 mg tablet 40 mg PO QHS Qty: 90 3RF potassium chloride 20 mEq tablet,ER particles/crystals 60 meq PO BID Qty: 180 3RF pantoprazole 40 mg tablet,delayed release (DR/EC) 40 mg PO DAILY Qty: 90 3RF Discontinued glimepiride 4 mg tablet 4 mg PO QDAY hydrocodone-acetaminophen 5-325 mg tablet 1 tab PO TID PRN (Reason: pain) isosorbide mononitrate 60 mg tablet extended release 24 hr 60 mg PO BID Qty: 90 3RF furosemide 80 mg Tablet 80 mg PO DAILY Qty: 30 6RF losartan 100 mg tablet 100 mg PO DAILY Qty: 90 3RF spironolactone 50 mg tablet 50 mg PO DAILY Qty: 90 3RF Referrals / Follow Up: Marcin Araujo MD [Med Staff - Active Staff] - Within 1 Month Victor M Luke DO [Primary Care Provider] - Within 2 Weeks Disposition Disposition (needs filled in before D/C Order can be placed): Retirement Facility
--- NOTE | 2024-12-06 12:22 | PHA.DC.MR.R ---
Pharmacy [facility]con[facility] has performed discharge medication reconciliation for this patient. The patient's discharge medication list was reviewed for discrepancies and discrepancies were resolved. Medications at Discharge Home Medications aspirin 81 mg tablet,delayed release 81 mg PO DAILY@0800 health maintenance 01/21/17 mirtazapine 15 mg tablet (Remeron) 15 mg PO QHS sleep 09/21/18 cyanocobalamin (vitamin B-12) 1,000 mcg capsule 1,000 mcg PO DAILY vitamin ##0 06/01/19 magnesium oxide 400 mg (241.3 mg magnesium) tablet 800 mg PO DAILY SUPPLEMENT 08/01/21 cetirizine 10 mg tablet 10 mg PO DAILY PRN Allergic Reaction 09/16/21 cholecalciferol (vitamin D3) 25 mcg (1,000 unit) tablet [address] 09/16/21 fluoxetine 40 mg capsule 80 mg PO DAILY DEPRESSION 90 days #180 caps 09/16/21 acetaminophen 325 mg tablet 650 mg PO Q6H PRN Pain 1-02/0910/12/23 atorvastatin 40 mg tablet 40 mg PO QHS CHOLESTEROL #90 tabs 06/14/24 nitroglycerin 0.4 mg sublingual tablet 0.4 mg sublingual Q5-15M PRN CHEST PAIN #25 tabs 06/14/24 pantoprazole 40 mg tablet,delayed release 40 mg PO DAILY GERD #90 tabs 06/14/24 potassium chloride 20 mEq tablet,extended release(part/cryst) 60 meq (3 x 20 mEq) PO BID supplement #180 tabs 06/14/24 amlodipine 5 mg tablet 5 mg PO QPM blood pressure 10/25/24 metolazone 2.5 mg tablet 2.5 mg PO QDAY diuretic 10/25/24 metoprolol succinate 25 mg tablet,extended release 24 hr 25 mg PO DAILY blood pressure #30 tabs 10/25/24 ticagrelor 90 mg tablet (Brilinta) 90 mg PO BID #60 tabs 12/02/24 empagliflozin 10 mg tablet (Jardiance) 10 mg PO DAILY #90 tabs 12/06/24 furosemide 40 mg tablet 40 mg PO DAILY #90 tabs 12/06/24 insulin lispro 100 unit/mL subcutaneous pen (Humalog KwikPen (U-100) Insulin) See Protocol subcut ACHS #0 mL 08/06/25 ranolazine 500 mg tablet,extended release,12 hr 500 mg PO BID #180 tabs 12/06/24 spironolactone 25 mg tablet 25 mg PO DAILY #90 tabs 12/06/24
[2024-12-06 12:45] VITALS: BP 126/86; PULSE 84; RESP 14; TEMP 36.6; O2SAT 99
[2024-12-06] MEDS: 0.9% Saline Lock 10 ML Syringe IV (12:50)
--- NOTE | 2024-12-06 18:43 | NURSING ---
patient left with belongings
--- NOTE | 2024-12-06 18:46 | NURSING ---
report called to Rafael bob at [facility]
== END 2024-12-06 14:43 | DRG 280 ==
LOC: ED 20:29 → ICU 20:37 → PCU 12-03 00:07
PROVIDERS: Internal Medicine; Internal Medicine Cardiovascular Disease; Admitting Provider Hospitalist; Emergency Provider Emergency Medicine; PCP Family Medicine; Referring Provider Internal Medicine Cardiovascular Disease; Visit Provider Internal Medicine
DX: I21.19 ST elevation (STEMI) myocardial infarction involving other coronary artery of inferior wall (principal); I50.33 Acute on chronic diastolic (congestive) heart failure; E87.1 Hypo-osmolality and hyponatremia; I13.0 Hypertensive heart and chronic kidney disease with heart failure and stage 1 through stage 4 chronic kidney disease, or unspecified chronic kidney disease; I47.20 Ventricular tachycardia, unspecified; T82.855A Stenosis of coronary artery stent, initial encounter; N17.9 Acute kidney failure, unspecified; T82.867A Thrombosis due to cardiac prosthetic devices, implants and grafts, initial encounter; J44.9 Chronic obstructive pulmonary disease, unspecified; E11.22 Type 2 diabetes mellitus with diabetic chronic kidney disease; N18.32 Chronic kidney disease, stage 3b; F32.A Depression, unspecified; Z68.33 Body mass index [BMI] 33.0-33.9, adult; K21.9 Gastro-esophageal reflux disease without esophagitis; I25.111 Atherosclerotic heart disease of native coronary artery with angina pectoris with documented spasm; E78.00 Pure hypercholesterolemia, unspecified; G47.33 Obstructive sleep apnea (adult) (pediatric); I25.2 Old myocardial infarction; F41.9 Anxiety disorder, unspecified; E87.6 Hypokalemia; X58.XXXA Exposure to other specified factors, initial encounter; G89.4 Chronic pain syndrome; E66.811 Obesity, class 1; G47.00 Insomnia, unspecified; Z95.5 Presence of coronary angioplasty implant and graft; Z79.02 Long term (current) use of antithrombotics/antiplatelets; Z79.82 Long term (current) use of aspirin; Z79.84 Long term (current) use of oral hypoglycemic drugs; Z79.899 Other long term (current) drug therapy; Z87.891 Personal history of nicotine dependence; Z86.16 Personal history of COVID-19; Z86.73 Personal history of transient ischemic attack (TIA), and cerebral infarction without residual deficits
CPT/HCPCS: 36415; 80048; 80053; 81001; 82962; 83735; 84100; 84484; 85025; 85347; 85610; 85730; 93005; 93458; 94002; 94003; 97162; 97166; 99285; C1887; C1894; Q9967; A4216; C1769; J2405

== ENCOUNTER 2024-12-06 14:57 | Outpatient (CLI) | payer MEDICARE, OTHER, SELFPAY ==
[2018-08-03 13:04] VITALS: BMI 19.8
--- NOTE | 2024-12-06 15:52 | NURSING ---
psn in with patient
--- NOTE | 2024-12-06 16:02 | CASEMGMT ---
Discharge Planning Referral sent to [facility]. [facility] has accepted. RN CM updated. Maria R Elliott DC Planning Asst.
--- NOTE | 2024-12-06 16:03 | CASEMGMT ---
Discharge Planning Discharge orders, signed med list, cpap info, and transport time sent to [facility]. Physicians will transport pt by wheelchair at 3p. Nursing, SW, pt, and his daughter (Dawna) updated. Maria R Elliott DC Planning Asst.
== END 2024-12-06 18:28 | disposition home or self-care (01) ==
LOC: PSN 14:58 → PCU 14:59
PROVIDERS: PCP Family Medicine; Referring Provider Internal Medicine Cardiovascular Disease; Visit Provider Internal Medicine Cardiovascular Disease
DX: I47.20 Ventricular tachycardia, unspecified (principal)
CPT/HCPCS: 93225; 93226

== ENCOUNTER 2024-12-07 10:51 | Observation (INO) | payer MEDICARE, OTHER, SELFPAY ==
[2018-08-03 13:04] VITALS: BMI 19.8
[2024-12-07] VITALS (13 sets, daily range): BP systolic 111–138; BP diastolic 61–103; PULSE 22–85; RESP 16–24; TEMP 36.6–36.8; O2SAT 94–100; BMI 33.4; BMI 32.1
--- NOTE | 2024-12-07 10:59 | EKG12_ITS ---
Test Reason : CP Blood Pressure : */* mmHG Vent. Rate : 98 BPM Atrial Rate : 98 BPM P-R Int : 186 ms QRS Dur : 118 ms QT Int : 280 ms P-R-T Axes : 73 -50 109 degrees QTcB Int : 357 ms Critical Test Result: STEMI Normal sinus rhythm Left axis deviation Inferior infarct recent lateral recent pattern Confirmed by NAOMIE PALOMO, PARVEZ ([id number]), marketing editor MARÍA AMBROSIO ([id number]) on 12/18/2024 9:16:14 AM Referred By: Confirmed By: PARVEZ AKBAR MD
--- NOTE | 2024-12-07 10:59 | RAD_ITS ---
PROCEDURE: CHEST PA AND LATERAL 12/07/2024 REASON FOR EXAM: CHEST PAIN TECHNIQUE: CHEST PA AND LATERAL COMPARISON: November 30, 2024 FINDINGS: Hardware: Cervical spine fusion. EKG leads. Suture anchors left humeral head. Heart: Normal size. Mediastinum: Aorta is atherosclerotic Lungs: Clear. No pneumothorax or pleural effusion. Bones: The bones are unremarkable. RAD/Chest PA and Lateral IMPRESSION: No acute cardiopulmonary process Reading Location: [id number]
--- NOTE | 2024-12-07 11:12 | ED.VIS.CHEST ---
HPI <PARISH Hay - Last Filed: 12/07/24 16:36> History of Present Illness Chief Complaint: Chest Pain Narrative Narrative: 79-year-old male with recent extensive dental cardiac history and STEMI presents with 2/10 midsternal chest pain and heaviness that started at 10 AM this morning while sitting in bed at his retirement. Patient had cardiac catheterization on 11/27, 11/30, 12/02. He had a recent acute thrombotic inferior STEMI complicated with distal PLV dissection that was treated with 2 overlapping stents. He came back with acute chest pain with EKG changes suggestive of another inferior STEMI and repeat cardiac cath showed patent stents in the RCA and patent stents in the PLV with mild disease in the PDA and mild in-stent restenosis in the RCA. The stents were all still patent. It was thought the EKG changes were secondary to the akinetic inferior wall with Q waves in presenting with ST elevation. He was treated with medical therapy with aspirin, Brilinta, statin, metoprolol, isosorbide and Ranexa. Hospitalization was complicated by hypokalemia and chronic kidney disease. He was discharged to the retirement last night. [facility] <PARISH Hay - Last Filed: 12/07/24 16:36> [facility] Medical History Anxiety Depression Diabetes Kidney disease Former smoker Atrial fibrillation Myocardial infarct Coronary artery disease Hypertension TIA (transient ischemic attack) Anemia Shortness of breath Unstable angina Fatigue Syncope Left-sided weakness History of COVID-19 Presence of stent in coronary artery (~08/31/22) Dyslipidemia Diabetes mellitus Chronic kidney disease Coronary artery disease Angina pectoris Abnormal PFT Chest heaviness Palpitations DEAN (dyspnea on exertion) Dizziness Leg pain Cough Exposure to COVID-19 virus Nonhealing nonsurgical wound with fat layer exposed Laceration without foreign body of scalp, subsequent encounter Acute left-sided weakness Essential hypertension CHF (congestive heart failure) History of melanoma Obesity (BMI 35.0-39.9 without comorbidity) CAD (coronary artery disease) 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.9) COPD (chronic obstructive pulmonary disease) TIA (transient ischemic attack) Obstructive sleep apnea Atherosclerotic heart disease robinson coronary artery w/angina pectoris Type 2 diabetes mellitus without complications Hyperlipidemia Obesity Home Medications ?Medication ?Instructions ?Recorded ?Last Taken ?Type aspirin 81 mg tablet,delayed 81 mg PO DAILY@0800 health 01/21/17 10/11/23 History release maintenance mirtazapine 15 mg tablet (Remeron) 15 mg PO QHS sleep 09/21/18 10/11/23 History cyanocobalamin (vitamin B-12) 1,000 mcg PO DAILY vitamin ##0 06/01/19 10/11/23 History 1,000 mcg capsule magnesium oxide 400 mg (241.3 mg 800 mg PO DAILY SUPPLEMENT 08/01/21 10/11/23 History magnesium) tablet cetirizine 10 mg tablet 10 mg PO DAILY PRN Allergic 09/16/21 10/11/23 History Reaction cholecalciferol (vitamin D3) [address] 09/16/21 10/11/23 History mcg (1,000 unit) tablet fluoxetine 40 mg capsule 80 mg PO DAILY DEPRESSION 90 days 09/16/21 10/11/23 History #180 caps acetaminophen 325 mg tablet 650 mg PO Q6H PRN Pain -02/0910/12/23 Unknown History atorvastatin 40 mg tablet 40 mg PO QHS CHOLESTEROL #90 tabs 06/14/24 Unknown Rx nitroglycerin 0.4 mg sublingual 0.4 mg sublingual Q5-15M PRN CHEST 06/14/24 Unknown Rx tablet PAIN #25 tabs pantoprazole 40 mg tablet,delayed 40 mg PO DAILY GERD #90 tabs 06/14/24 Unknown Rx release potassium chloride 20 mEq 60 meq (3 x 20 mEq) PO BID 06/14/24 Unknown Rx tablet,extended release(part/cryst) supplement #180 tabs amlodipine 5 mg tablet 5 mg PO QPM blood pressure 10/25/24 Unknown History metolazone 2.5 mg tablet 2.5 mg PO QDAY diuretic 10/25/24 Unknown History metoprolol succinate 25 mg 25 mg PO DAILY blood pressure #30 10/25/24 Unknown Rx tablet,extended release 24 hr tabs ticagrelor 90 mg tablet (Brilinta) 90 mg PO BID #60 tabs 12/02/24 Unknown Rx empagliflozin 10 mg tablet 10 mg PO DAILY #90 tabs 12/06/24 Unknown Rx (Jardiance) furosemide 40 mg tablet 40 mg PO DAILY #90 tabs 12/06/24 Unknown Rx insulin lispro 100 unit/mL See Protocol subcut ACHS #0 mL 12/06/24 Unknown Rx subcutaneous pen (Humalog KwikPen (U-100) Insulin) ranolazine 500 mg tablet,extended 500 mg PO BID #180 tabs 12/06/24 Unknown Rx release,12 hr spironolactone 25 mg tablet 25 mg PO DAILY #90 tabs 12/06/24 Unknown Rx Allergy/AdvReac Type Severity Reaction Status Date / Time No Known Allergies Allergy Verified 12/07/24 10:57 Family History Father Parkinsons disease Prostate cancer Mother Osteoporosis Surgical History Presence of coronary angioplasty implant and graft (11/27/24) History of tympanostomy tube placement History of percutaneous transluminal coronary angioplasty (08/18/18) History of herniorrhaphy Hx of cholecystectomy History of tonsillectomy History of prostatectomy Social History household members: spouse and none housing: retirement Smoking Status: Former smoker quit date: 05/03/98 pack-years: 50 how long ago did patient quit smokin years ago alcohol intake: never substance use type: does not use caffeine: Yes Type: coffee and tea Number of servings: 6 ROS <PARISH Hay - Last Filed: 12/07/24 16:36> ROS ED ROS Narrative Constitutional: Negative for fever, chills, malaise. CVS: Positive for chest pain. No palpitations or syncope. Respiratory: Positive for shortness of breath. Negative for cough. GI: Negative for abdominal pain, nausea, vomiting. EXAM <PARISH Hay - Last Filed: 12/07/24 16:36> Physical Exam Narrative Exam Narrative: CONST: Patient sitting in no acute distress. EYES: Normal inspection. NECK: Normal inspection. RESP: No respiratory distress, CTAB. CVS: Regular rate and rhythm, no murmur, no gallop. ABD: Soft and nontender, no guarding or rebound, nondistended. SKIN: Color normal, no rash, warm, dry, intact. EXTREMITIES: Normal appearance, no pedal edema. NEURO: Alert and answering questions appropriately. PSYCH: Normal affect. Const Vital Signs: 12/07/24 10:52 12/07/24 11:05 12/07/24 12:00 Temperature 98.3 F Temperature Source Oral Pulse Rate 85 74 Respiratory Rate 24 H 17 Blood Pressure 138/88 H 121/89 H Blood Pressure Mean 104 99 Pulse Ox 99 99 97 Oxygen Delivery Method Nasal Cannula Nasal Cannula Oxygen Flow Rate (L/min) 2 12/07/24 12:20 12/07/24 12:58 12/07/24 14:29 Temperature Temperature Source Pulse Rate 73 73 Respiratory Rate 16 Blood Pressure 129/92 H 128/95 H 114/61 Blood Pressure Mean 106 78 Pulse Ox 98 Oxygen Delivery Method Oxygen Flow Rate (L/min) 12/07/24 14:29 12/07/24 15:00 12/07/24 15:13 Temperature 98.2 F 98.2 F Temperature Source Pulse Rate 22 L 22 L Respiratory Rate 22 H 22 H Blood Pressure 114/61 132/93 H 114/61 Blood Pressure Mean 78 106 78 Pulse Ox 99 97 99 Oxygen Delivery Method Oxygen Flow Rate (L/min) 12/07/24 16:00 Temperature Temperature Source Pulse Rate Respiratory Rate Blood Pressure Blood Pressure Mean Pulse Ox 97 Oxygen Delivery Method Oxygen Flow Rate (L/min) <Dr. Tor Irizarry, DO - Last Filed: 12/09/24 15:01> Physical Exam Const Vital Signs: 12/07/24 10:52 12/07/24 11:05 12/07/24 12:00 Temperature 98.3 F Temperature Source Oral Pulse Rate 85 74 Respiratory Rate 24 H 17 Blood Pressure 138/88 H 121/89 H Blood Pressure Mean 104 99 Pulse Ox 99 99 97 Oxygen Delivery Method Nasal Cannula Nasal Cannula Oxygen Flow Rate (L/min) 2 12/07/24 12:20 12/07/24 12:58 12/07/24 14:29 Temperature Temperature Source Pulse Rate 73 73 Respiratory Rate 16 Blood Pressure 129/92 H 128/95 H 114/61 Blood Pressure Mean 106 78 Pulse Ox 98 Oxygen Delivery Method Oxygen Flow Rate (L/min) 12/07/24 14:29 12/07/24 15:00 12/07/24 15:13 Temperature 98.2 F 98.2 F Temperature Source Pulse Rate 22 L 22 L Respiratory Rate 22 H 22 H Blood Pressure 114/61 132/93 H 114/61 Blood Pressure Mean 78 106 78 Pulse Ox 99 97 99 Oxygen Delivery Method Oxygen Flow Rate (L/min) 12/07/24 16:00 Temperature Temperature Source Pulse Rate Respiratory Rate Blood Pressure Blood Pressure Mean Pulse Ox 97 Oxygen Delivery Method Oxygen Flow Rate (L/min) [facility] <PARISH Hay - Last Filed: 12/07/24 16:36> [facility] Narrative Medical decision making narrative: Consults: Cardiology, hospitalist Differential includes but not limited to ACS, PE, pneumonia 79-year-old male presents with chest pain that started at rest this morning. He recently had a STEMI and multiple cardiac catheterizations with a distal PLV dissection. The stents were all still patent. He appears well and nontoxic. He is on 2 L O2 due to shortness of breath, the rest of his vitals are stable. Heart sounds regular without murmur. Lungs clear. EKG is still reading as a STEMI in the inferior leads, however it looks unchanged from previous. His troponins are lower than the prior admission when they were over 10,000 and are now 7122 and 6442. His potassium levels have normalized at 4.9 and creatinine of 2.76 his baseline. The attending had initially discussed the EKG with Dr. Chung with the who agreed that looks similar to previous and did not represent an acute STEMI. He likely has chronic elevations from the PLV dissection which was treated with stents. After all of his results returned I consulted Dr. Araujo. He wanted to ensure the patient is taking the isosorbide, spironolactone, Lasix, Jardiance and Ranexa as in this point in time treatment is maximal medical therapy and he advised discharge. However, after phone call I realized that a D-dimer was ordered and is elevated. He cannot do CTA due to his chronic kidney disease and thus I cannot rule out a PE. He did initially complain of shortness of breath and was on 2 L however is now saturating around 97% on room air. The case was discussed with Dr. Santos who evaluated the patient and ordered ultrasounds of the bilateral lower extremities which are negative. He admitted the patient for further care and possible VQ scan. History & Record Review Discussion w/independent historian: Patient and Family Additional record(s) reviewed:: Prior inpatient record, Prior ED visit and Prior labs Lab Data Attestation: I reviewed the patient's lab results. Labs: Laboratory Results - last 24 hr 12/07/24 12/07/24 11:04 13:00 WBC 11.9 H RBC 4.54 L Hgb 13.3 Hct 39.1 L MCV 86.1 MCH 29.3 MCHC 34.0 RDW Std Deviation 41.4 RDW Coeff of Adrian 13.4 Plt Count 190 MPV 13.0 H Immature Gran % (Auto) 0.700 Neut % (Auto) 79.0 H Lymph % (Auto) 7.9 L Radford % (Auto) 11.5 H Eos % (Auto) 0.6 Baso % (Auto) 0.3 Absolute Neuts (auto) 9.4 H Absolute Lymphs (auto) 0.94 Nucleated RBC % 0 D-Dimer Quant (PE/DVT) 1.61 H* Sodium 132 L Potassium 4.1 Chloride 94 L Carbon Dioxide 20.9 L Anion Gap 18 H BUN 40 H Creatinine 2.76 H Estim Creat Clear Calc 25.62 L Est GFR (MDRD) Non-Af 23 L BUN/Creatinine Ratio 14.5 Glucose 209 H Calcium 9.5 Magnesium 2.4 H Troponin T High Sens 7122 H* D Troponin T Hi Sens 2 Hr 6442 H* NT pro BNP II 2037 H Radiography Diagnostic Testing: Clinical Impression(s) from Imaging Studies Chest X-Ray 12/07/24 10:59 IMPRESSION: No acute cardiopulmonary process Reading Location: [facility] ED attending interpretation of 2 view chest x-ray shows normal heart size, no acute infiltrate, edema or effusion. EKG Initial EKG: Attestation: I personally reviewed and interpreted this EKG as follows: Interpretation: Sinus Rhythm Comments: Normal sinus rhythm [address] elevations in the inferior leads appear similar to previous, not an acute STEMI Prior EKG tracings: available for review Prior: Unchanged <Dr. Tor Irizarry, DO - Last Filed: 12/09/24 15:01> [facility] Narrative Medical decision making narrative: Consults: Cardiology, hospitalist Differential includes but not limited to ACS, PE, pneumonia 79-year-old male presents with chest pain that started at rest this morning. He recently had a STEMI and multiple cardiac catheterizations with a distal PLV dissection. The stents were all still patent. He appears well and nontoxic. He is on 2 L O2 due to shortness of breath, the rest of his vitals are stable. Heart sounds regular without murmur. Lungs clear. EKG is still reading as a STEMI in the inferior leads, however it looks unchanged from previous. His troponins are lower than the prior admission when they were over 10,000 and are now 7122 and 6442. His potassium levels have normalized at 4.9 and creatinine of 2.76 his baseline. The attending had initially discussed the EKG with Dr. Chung with the who agreed that looks similar to previous and did not represent an acute STEMI. He likely has chronic elevations from the PLV dissection which was treated with stents. After all of his results returned I consulted Dr. Araujo. He wanted to ensure the patient is taking the isosorbide, spironolactone, Lasix, Jardiance and Ranexa as in this point in time treatment is maximal medical therapy and he advised discharge. However, after phone call I realized that a D-dimer was ordered and is elevated. He cannot do CTA due to his chronic kidney disease and thus I cannot rule out a PE. He did initially complain of shortness of breath and was on 2 L however is now saturating around 97% on room air. The case was discussed with Dr. Santos who evaluated the patient and ordered ultrasounds of the bilateral lower extremities which are negative. He admitted the patient for further care and possible VQ scan. Supervisory Physician Note Patient was seen and examined with the Advanced Practice Provider. Nursing notes and vital signs have been reviewed. Pertinent old records have been reviewed. I agree with the essential elements of the [facility]'s history, physical exam, assessment, and plan. The differential diagnosis and management options were discussed with the [facility]. I participated in determining and agree with the management, procedures, final impression and disposition as documented. See changes noted by me. Please see addendum or separate note for any additional details. History was taken by patient, [facility] at the nursing facility who I spoke with over the phone, chart review including cardiology and discharge summary notes. Gen: A&O x3 Head: Normocephalic, atraumatic Eyes: No sclera icterus, conjunctiva clear ENT: Moist mucous membranes Neck: Trachea midline, No JVD CV: RRR, no murmurs, + bilateral peripheral edema Resp: Lungs CTA BL, no w/r/c, on 2 L nasal cannula GI: Abd soft, non-distended, non-tender, no r/r/g Musc: Full ROM, no deformity Skin: Warm, dry Neuro: Alert, oriented, grossly intact, sensation intact Psych: Cooperative, appropriate mood and affect EKG on arrival showed ST elevation in the inferior leads however this looks unchanged from previous EKG. I did call interventional cardiology and spoke with Dr. Zazueta. He agrees that this is likely chronic given previous workup. No need for STEMI alert. Differential diagnosis includes but is not limited to angina, ACS/occluded stents, PE, CHF, pneumonia. Patient has had multiple cardiac catheterizations and is not on blood thinners. He is requiring 2 L nasal cannula oxygen and is endorsing shortness of breath. CBC shows leukocytosis 11.9. No anemia. BMP shows baseline CKD. Magnesium mildly elevated. Troponins elevated but downtrending from prior results. BNP elevated. D-dimer elevated. Patient unable to receive CTA secondary to his CKD. Although his D-dimer may be elevated due to his recent catheterizations we cannot rule out PE given that he endorses shortness of breath and was needing oxygen earlier during his ED stay. Patient will warrant VQ mismatch. Patient admitted. Impression: 1. Chest pain 2. Shortness of breath with elevated D-dimer, need VQ mismatch to rule out PE 3. Recent STEMI Lab Data Labs: Laboratory Results - last 24 hr 12/07/24 12/07/24 11:04 13:00 WBC 11.9 H RBC 4.54 L Hgb 13.3 Hct 39.1 L MCV 86.1 MCH 29.3 MCHC 34.0 RDW Std Deviation 41.4 RDW Coeff of Adrian 13.4 Plt Count 190 MPV 13.0 H Immature Gran % (Auto) 0.700 Neut % (Auto) 79.0 H Lymph % (Auto) 7.9 L Radford % (Auto) 11.5 H Eos % (Auto) 0.6 Baso % (Auto) 0.3 Absolute Neuts (auto) 9.4 H Absolute Lymphs (auto) 0.94 Nucleated RBC % 0 D-Dimer Quant (PE/DVT) 1.61 H* Sodium 132 L Potassium 4.1 Chloride 94 L Carbon Dioxide 20.9 L Anion Gap 18 H BUN 40 H Creatinine 2.76 H Estim Creat Clear Calc 25.62 L Est GFR (MDRD) Non-Af 23 L BUN/Creatinine Ratio 14.5 Glucose 209 H Calcium 9.5 Magnesium 2.4 H Troponin T High Sens 7122 H* D Troponin T Hi Sens 2 Hr 6442 H* NT pro BNP II 2037 H Radiography Diagnostic Testing: Clinical Impression(s) from Imaging Studies Chest X-Ray 12/07/24 10:59 IMPRESSION: No acute cardiopulmonary process Reading Location: [id number] Discharge Plan Triage Chief Complaint: Chest Pain ED Midlevel Provider: Juli German ED Provider: Tor Irizarry Dx/Rx/DC Orders Clinical Impression: Chest pain, Recent ST elevation myocardial infarction (STEMI) Primary Care Provider: Victor M Luke Disposition Disposition: Home, Self Care Discharge Date/Time: 12/07/24 17:03
[2024-12-07 11:18] LABS: Hematocrit 39.1 % (40-54); Hemoglobin 13.3 g/dL (13.0-16.5); Immature Granulocytes Count 0.080 X10^3/uL (0.0-0.0); Mean Corp Hgb Conc 34.0 g/dL (32-36); Mean Corpuscular Volume 86.1 fL (80-94); Mean Platelet Vol. 13.0 fl (6.2-12.0); NRBC Flagged by Analyzer 0 % (0-5); Platelet Count 190 K/mm3 (150-450); RBC Distribution Width CV 13.4 % (11.6-14.6); RBC Distribution Width SD 41.4 fl (35.1-43.9); Red Blood Count 4.54 M/mm3 (4.6-6.2); White Blood Count 11.9 K/mm3 (4.4-11.0)
[2024-12-07 11:53] LABS: Anion Gap 18 (5-15); BUN 40 mg/dL (4-19); BUN/Creat Ratio 14.5 RATIO (10-20); Calcium,Total 9.5 mg/dL (7.6-11.0); Carbon Dioxide 20.9 mmol/L (21.0-32.0); Chloride 94 mmol/L (98-108); Estimated Creatinine Clearance 25.62 ml/min (50-250); Glucose 209 mg/dL (70-99); Potassium 4.1 mmol/L (3.3-5.1); Troponin T High Sensitivity 7122 ng/L (<=22)
[2024-12-07] MEDS: Nitroglycerin SL (ED/IMG/CATH) 0.4 MG TABLET SL (12:20)
[2024-12-07 12:49] LABS: Magnesium 2.4 mg/dL (1.5-2.2)
[2024-12-07 13:09] LABS: Pro- Brain NATRIURETIC PEPTIDE 2037 pg/mL (<=1800)
[2024-12-07 13:36] LABS: Troponin T High Sens 2 HR 6442 ng/L (<=22)
[2024-12-07 14:42] LABS: D-Dimer Quantitative (DVT/PE) 1.61 FEU/ug/m (0.27-0.49)
--- NOTE | 2024-12-07 15:12 | ED.RN ---
patient was being discharge but due to elevated D-Dimer he will have to be admitted for fruther studies since a CTA cannot be obtained. Patient made aware and daughter.
--- NOTE | 2024-12-07 16:32 | NM_ITS ---
PROCEDURE: LUNG SCAN VENT/PERF 12/08/2024 REASON FOR EXAM: SHORTNESS OF BREATH TECHNIQUE: Nuclear medicine V/Q scan using 6 mCi Tc-99m MAA intravenously for perfusion imaging and 50 mCi Tc-99m DTPA aerosol for ventilation imaging. Anterior, posterior, right and left lateral, JOSEPH, OCCITAN, RPO, and LPO ventilation and perfusion images. COMPARISON: Prior chest radiograph dated December 07, 2024. FINDINGS: Ventilation images: Central clumping of the ventilation agent Perfusion images: No suspicious perfusion defects. NM/Lung Scan Vent/Perf IMPRESSION: Low probability scan for pulmonary embolism. Reading Location: [facility]
--- NOTE | 2024-12-07 16:33 | HP.PCM.HOS_ITS ---
[facility] - General General Date of Service: 12/07/24 [facility] Narrative GERRY GARCIA, is a 79 M who presents with shortness of breath. This is a 79-year-old male who was admitted on November 30 with a STEMI. Patient had had an inferior STEMI. Patient underwent a left heart catheterization that showed a subacute stent thrombosis of the proximal RCA that underwent angioplasty. Patient had been on clopidogrel but was started on ticagrelor. He developed SUSAN and his ARB was discontinued. Patient developed acute onset of facial paresthesias and a stroke team was called. Patient underwent stroke workup including MRI and MRA that were negative. Neurology felt as a stress response related to cardiac event and not TIA or nor stroke. Patient was discharged then on the second. He came back later that dayWith chest pain again concerning for a STEMI alert. He underwent a left heart catheterization that showed patent vessels and cardiology recommended continuing dual platelet therapy, high intensity statins, beta-jeffrey and nitrates. Patient was to be continued on furosemide as well as empagliflozin. And patient was discharged on the 6. Patient came back today with shortness of breath. Patient underwent a workup that showed no acute process but his D-dimer was elevated at 1.61. Given his CKD, a CTA of his chest could not be safely performed without compromising his kidney function further. He did have troponins that were elevated at 7122 and subsequently down to 6442. This is actually an improvement where his troponins back on the second were greater than 10,000. He is not experiencing any chest pain at this time. He denies any lower extremity edema. He is currently on room air and breathing comfortably. [facility] Medical History Anxiety Depression Diabetes Kidney disease Former smoker Atrial fibrillation Myocardial infarct Coronary artery disease Hypertension TIA (transient ischemic attack) Anemia Shortness of breath Unstable angina Fatigue Syncope Left-sided weakness History of COVID-19 Presence of stent in coronary artery (~08/31/22) Dyslipidemia Diabetes mellitus Chronic kidney disease Coronary artery disease Angina pectoris Abnormal PFT Chest heaviness Palpitations DEAN (dyspnea on exertion) Dizziness Leg pain Cough Exposure to COVID-19 virus Nonhealing nonsurgical wound with fat layer exposed Laceration without foreign body of scalp, subsequent encounter Acute left-sided weakness Essential hypertension CHF (congestive heart failure) History of melanoma Obesity (BMI 35.0-39.9 without comorbidity) CAD (coronary artery disease) 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.9) COPD (chronic obstructive pulmonary disease) TIA (transient ischemic attack) Obstructive sleep apnea Atherosclerotic heart disease [place] coronary artery w/angina pectoris Type 2 diabetes mellitus without complications Hyperlipidemia Obesity Home Medications ?Medication ?Instructions ?Recorded ?Last Taken ?Type aspirin 81 mg tablet,delayed 81 mg PO DAILY@0800 healt h 01/21/17 10/11/23 History release maintenance mirtazapine 15 mg tablet (Remeron) 15 mg PO QHS sleep 09/21/18 10/11/23 History cyanocobalamin (vitamin B-12) 1,000 mcg PO DAILY vitam in ##0 06/01/19 10/11/23 History 1,000 mcg capsule magnesium oxide 400 mg (241.3 mg 800 mg PO DAILY SUPPL EMENT 08/01/21 10/11/23 History magnesium) tablet cetirizine 10 mg tablet 10 mg PO DAILY PRN Allergic 09/16/21 10/11/23 History Reaction cholecalciferol (vitamin D3) [address] 10/11/23 History mcg (1,000 unit) tablet fluoxetine 40 mg capsule 80 mg PO DAILY DEPRESSION 90 days 09/16/21 10/11/23 History #180 caps acetaminophen 325 mg tablet 650 mg PO Q6H PRN Pain 1-1 10/12/23 Unknown History atorvastatin 40 mg tablet 40 mg PO QHS CHOLESTEROL #90 tabs 06/14/24 Unknown Rx nitroglycerin 0.4 mg sublingual 0.4 mg sublingual Q5-1 5M PRN CHEST 06/14/24 Unknown Rx tablet PAIN #25 tabs pantoprazole 40 mg tablet,delayed 40 mg PO DAILY GERD #90 tabs 06/14/24 Unknown Rx release potassium chloride 20 mEq 60 meq (3 x 20 mEq) PO BID 0 06/14/24 Unknown Rx tablet,extended release(part/cryst) supplement #180 ta bs amlodipine 5 mg tablet 5 mg PO QPM blood pressure 0 10/25/24 Unknown History metolazone 2.5 mg tablet 2.5 mg PO QDAY diuretic 10/02 09/24 Unknown History metoprolol succinate 25 mg 25 mg PO DAILY blood pressu re #30 10/25/24 Unknown Rx tablet,extended release 24 hr tabs ticagrelor 90 mg tablet (Brilinta) 90 mg PO BID #60 ta bs 12/02/24 Unknown Rx empagliflozin 10 mg tablet 10 mg PO DAILY #90 tabs 10/25 Unknown Rx (Jardiance) furosemide 40 mg tablet 40 mg PO DAILY #90 tabs 10/25 Unknown Rx insulin lispro 100 unit/mL See Protocol subcut ACHS #0 mL 12/06/24 Unknown Rx subcutaneous pen (Humalog KwikPen (U-100) Insulin) ranolazine 500 mg tablet,extended 500 mg PO BID #180 t abs 12/06/24 Unknown Rx release,12 hr spironolactone 25 mg tablet 25 mg PO DAILY #90 tabs Unknown Rx Allergy/AdvReac Type Severity Reaction Status Date / Time No Known Allergies Allergy Verified 12/07/24 10:57 Family History Father Parkinsons disease Prostate cancer Mother Osteoporosis Surgical History Presence of coronary angioplasty implant and graft (11/27/24) History of tympanostomy tube placement History of percutaneous transluminal coronary angioplasty (08/18/18) History of herniorrhaphy Hx of cholecystectomy History of tonsillectomy History of prostatectomy Social History household members: spouse and none housing: fpc Smoking Status: Former smoker quit date: 05/03/98 pack-years: 50 how long ago did patient quit smokin years ago alcohol intake: never substance use type: does not use caffeine: Yes Type: coffee and tea Number of servings: 6 ROS ROS Narrative All review of systems were negative except as mentioned above in the history of present illness and the other review of systems. Vital Signs Vital Signs Vital Signs: 12/07/24 10:52 12/07/24 11:05 12/07/24 12:00 Temperature 36.8 C Temperature Source Oral Pulse Rate 85 74 Respiratory Rate 24 H 17 Blood Pressure 138/88 H 121/89 H Blood Pressure Mean 104 99 Pulse Ox 99 99 97 Oxygen Delivery Method Nasal Cannula Nasal Cannula Oxygen Flow Rate (L/min) 2 12/07/24 12:20 12/07/24 12:58 12/07/24 14:29 Temperature Temperature Source Pulse Rate 73 73 Respiratory Rate 16 Blood Pressure 129/92 H 128/95 H 114/61 Blood Pressure Mean 106 78 Pulse Ox 98 Oxygen Delivery Method Oxygen Flow Rate (L/min) 12/07/24 14:29 12/07/24 15:00 12/07/24 15:13 Temperature 36.8 C 36.8 C Temperature Source Pulse Rate 22 L 22 L Respiratory Rate 22 H 22 H Blood Pressure 114/61 132/93 H 114/61 Blood Pressure Mean 78 106 78 Pulse Ox 99 97 99 Oxygen Delivery Method Oxygen Flow Rate (L/min) 12/07/24 16:00 Temperature Temperature Source Pulse Rate Respiratory Rate Blood Pressure Blood Pressure Mean Pulse Ox 97 Oxygen Delivery Method Oxygen Flow Rate (L/min) Weight Weight: 102.603 kg Body Mass Index (BMI) 33.4 Physical Exam Narrative POCUS: Indication is for shortness of breath. Using the emergency room POCUS machine (which does not include a phased-array probe). Use curvilinear via fast protocol, is liver was visualized and his IVC was difficult to over the visualized but from what I could tell did appear to be collapsible with respirations. Doing the pulmonary windows, patient did have some small pleural effusion on his right base as well as some B-lines noted in the right base. But otherwise no fluid visualized elsewhere. And doing a bedside DVT scan showed that his is deep venous system was collapsible from his groin through his calf bilaterally and no DVT was visualized. Const alert and no apparent distress Constitutional Narrative: No respiratory distress. No conversational dyspnea. Cooperative. Able to sit up on his own. HEENT normocephalic and head/scalp atraumatic Resp normal respiratory effort, no retractions, no use of accessory muscles and clear to auscultation bilaterally Cardio regular rate, regular rhythm, S1 normal heart sound and S2 normal heart sound GI normal to inspection, nondistended, normoactive bowel sounds, soft to palpation, non-tender and non-distended Extremity normal to inspection and full ROM Extremity Narrative: No calf tenderness Neuro Sensorium / Orientation: awake and alert Psych affect normal Results Lab / Micro Data 12/07/24 11:04 12/07/24 11:04 Labs: Laboratory Results - last 24 hr 12/07/24 11:04: WBC 11.9 H, RBC 4.54 L, Hgb 13.3, Hct 39.1 L, MCV 86.1, MCH 29.3, MCHC 34.0, RDW Std Deviation 41.4, RDW Coeff of Adrian 13.4, Plt Count 190, M PV 13.0 H, Immature Gran % (Auto) 0.700, Neut % (Auto) 79.0 H, Lymph % (Auto) 7.9 L, [place] % (Auto) 11.5 H, Eos % (Auto) 0.6, Baso % (Auto) 0.3, Absolute Neuts (auto) 9.4 H, Absolute Lymphs (auto) 0.94, Nucleated RBC % 0, D-Dimer Quant (PE/DVT) 1.61 H*, Sodium 132 L, Potassium 4.1, Chloride 94 L, Carbon Dioxide 20.9 L, Anion Gap 18 H, BUN 40 H, Creatinine 2.76 H, Estim Creat Clear Calc 25.62 L, Est GFR (MDRD) Non-Af 23 L, BUN/Creatinine Ratio 14.5, Glucose 209 H, Calcium 9.5, Magnesium 2.4 H, Troponin T High Sens 7122 H* D, NT pro BNP II 2037 H 12/07/24 13:00: Troponin T Hi Sens 2 Hr 6442 H* Imaging Radiology Impression Chest X-Ray 12/07/24 10:59 IMPRESSION: No acute cardiopulmonary process Reading Location: [facility] Assessment & Plan Assessment/Plan (1) Shortness of breath: PLAN: Transient. His exam is unremarkable. Bedside POCUS evaluation of his venous system of the lower extremities does not reveal any DVTs. This however does not rule out an acute PE. His D-dimer is elevated but that could be related with PE but may also be his normal. No prior D-dimer was ordered to compare to. And given his CKD, we cannot safely do a CT angiogram. Therefore patient will have a VQ scan. If his VQ scan is negative then I feel that he can be discharged. My suspicion for this being PE is rather low but will perform the VQ scan to further evaluate. No other clinical evidence to suggest an etiology of his shortness of breath at this time but he does feel better. PLAN: Plan CAD: Status post recent STEMI. Continue with ticagrelor, aspirin, atorvastatin, ranolazine HFpEF: Compensated this time. Continue with furosemide, spironolactone, empagliflozin, metoprolol succinate. Not a candidate for JOSELO inhibitor/angiotensin receptor jeffrey given CKD. DM2: Continue with sliding scale insulin. Depression: Continue with fluoxetine Insomnia: Continue with Remeron VTE prophylaxis: Low risk given current observation status. CODE STATUS: Verified with the patient. Patient wishes to be full code Case discussed with the patient's daughter at bedside. Charges/Coding Visit Charges Inpatient E&M: 25471 Init Hosp L3
[2024-12-07 17:40] LABS: Troponin T High Sens 4 HR 6556 ng/L (<=22)
[2024-12-07] MEDS: TICAGRELOR 90 MG TABLET PO (23:09)
[2024-12-08 05:00] VITALS: BP 132/64; PULSE 74; RESP 16; TEMP 36.7; O2SAT 98
--- NOTE | 2024-12-08 07:34 | PCM.PN.HOSP ---
Subjective Subjective Patient is a 79-year-old gentleman with recent history of acute inferior STEMI which was complicated by distal PLV dissection who was discharged to a assisted facility brought back with shortness of breath. Patient was found to have elevated D-dimer admitted to monitored bed VQ scan ordered for subsequent evaluation Objective Data Objective Data Vital Signs: Vital Signs Temp Pulse Resp BP Pulse Ox O2 Del Method O2 Flow Rate 98.0 F 74 16 132/64 H 98 Room Air 2 12/08/24 05:00 12/08/24 05:00 12/08/24 05:00 12/08/24 05:00 12/08/24 05:00 12/08/24 05:00 12/07/24 11:05 FiO2 21 12/08/24 01:20 Oxygen Flow Rate (L/min) 2 Oxygen Delivery Method Room Air Weight: 98.883 kg Body Mass Index (BMI) 32.1 Intake & Output: Intake and Output for Last 24 Hours 12/06/24 12/07/24 12/08/24 23:59 23:59 23:59 Output Total 300 / 300 Balance -300 / -300 Lab / Micro Data 12/08/24 06:30 12/08/24 06:30 Labs: Laboratory Results - last 24 hr 12/07/24 11:04: WBC 11.9 H, RBC 4.54 L, Hgb 13.3, Hct 39.1 L, MCV 86.1, MCH 29.3, MCHC 34.0, RDW Std Deviation 41.4, RDW Coeff of Adrian 13.4, Plt Count 190, MPV 13.0 H, Immature Gran % (Auto) 0.700, Neut % (Auto) 79.0 H, Lymph % (Auto) 7.9 L, [place] % (Auto) 11.5 H, Eos % (Auto) 0.6, Baso % (Auto) 0.3, Absolute Neuts (auto) 9.4 H, Absolute Lymphs (auto) 0.94, Nucleated RBC % 0, D-Dimer Quant (PE/DVT) 1.61 H*, Sodium 132 L, Potassium 4.1, Chloride 94 L, Carbon Dioxide 20.9 L, Anion Gap 18 H, BUN 40 H, Creatinine 2.76 H, Estim Creat Clear Calc 25.62 L, Est GFR (MDRD) Non-Af 23 L, BUN/Creatinine Ratio 14.5, Glucose 209 H, Calcium 9.5, Magnesium 2.4 H, Troponin T High Sens 7122 H* D, NT pro BNP II 2037 H 12/07/24 13:00: Troponin T Hi Sens 2 Hr 6442 H* 12/07/24 16:35: Troponin T Hi Sens 4Hr 6556 H* 12/07/24 17:36: POC Glucose 187 H 12/07/24 23:07: POC Glucose 222 H 12/08/24 06:57: POC Glucose 185 H Radiography Diagnostic Testing: Radiology Impression Chest X-Ray 12/07/24 10:59 IMPRESSION: No acute cardiopulmonary process Reading Location: [facility] Physical Exam Narrative GENERAL: cooperative HEENT: Atraumatic; normocephalic EYES; Anicteric, Normal Conjunctiva NECK; supple, normal thyroid, RESPIRATORY: Diminished to auscultation CARDIOVASCULAR: Regular S1 S2, GI: soft, normoactive bowel sounds, : No Renal angle tenderness; EXTREMITIES: No edema, no clubbing, MUSCULOSKELETAL: no muscle wasting NEURO: Awake; no lateralizing signs. SKIN: No Rash PSYCH; Flat affect Assessment & Plan Assessment/Plan (1) DEAN (dyspnea on exertion): PLAN: Plan Patient is a 79-year-old gentleman with recent history of acute inferior STEMI which was complicated by distal PLV dissection who was discharged to a assisted facility brought back with shortness of breath. Patient was found to have elevated D-dimer admitted to monitored bed VQ scan ordered for subsequent evaluation 1. Exertional dyspnea ? Patient was found to have elevated D-dimer admitted to monitored bed VQ scan ordered for subsequent evaluation 2. Recent acute inferior wall SD ? This was complicated by PLV dissection underwent emergency On 11/30 which showed subacute stent thrombosis at the proximal RCA s/p balloon angioplasty, along with thrombus embolization to the right posterior lateral ventricular branch s/p 2 new drug-eluting stents. Patient was subsequently readmitted following his initial evaluation with similar complaints seen in consultation by cardiology assessment was patient was having coronary vasospasms. Ranexa added to patient treatment regimen. 3. Physical deconditioning ? Patient was recently discharged to a assisted facility plan is for patient to be discharged back once pulmonary embolism is ruled out 4. Depression with anxiety ? Patient is on fluoxetine as well as Remeron at night plan is to continue 5. Diabetes mellitus type II -patient's oral hypoglycemics held. Placed on long acting insulin, Accu-Cheks a.c. and at bedtime and covered with sliding scale insulin 6.Chronic kidney disease stage IIIb ? Patient kidney function at baseline 7. DVT prophylaxis ? Subcu heparin Charges/Coding Visit Charges Inpatient E&M: 17871 Subs Hosp L2
[2024-12-08 07:35] LABS: Hematocrit 39.2 % (40-54); Hemoglobin 12.9 g/dL (13.0-16.5); Immature Granulocytes Count 0.090 X10^3/uL (0.0-0.0); Mean Corp Hgb Conc 32.9 g/dL (32-36); Mean Corpuscular Volume 87.7 fL (80-94); Mean Platelet Vol. 13.2 fl (6.2-12.0); NRBC Flagged by Analyzer 0 % (0-5); Platelet Count 178 K/mm3 (150-450); RBC Distribution Width CV 13.4 % (11.6-14.6); RBC Distribution Width SD 42.8 fl (35.1-43.9); Red Blood Count 4.47 M/mm3 (4.6-6.2); White Blood Count 10.5 K/mm3 (4.4-11.0)
[2024-12-08 08:15] LABS: Anion Gap 18 (5-15); BUN 44 mg/dL (4-19); BUN/Creat Ratio 15.6 RATIO (10-20); Calcium,Total 9.6 mg/dL (7.6-11.0); Carbon Dioxide 21.2 mmol/L (21.0-32.0); Chloride 95 mmol/L (98-108); Estimated Creatinine Clearance 24.45 ml/min (50-250); Glucose 178 mg/dL (70-99); Potassium 3.4 mmol/L (3.3-5.1)
[2024-12-08 10:00] VITALS: BP 121/81; PULSE 72; RESP 18; TEMP 36.5; O2SAT 96
[2024-12-08] MEDS: Magnesium Chloride 64 MG Delay Rel.Tablet 256 MG PO (10:02)
[2024-12-08] MEDS: Aspirin E.C. 81 MG Tablet PO (10:02)
[2024-12-08] MEDS: Potassium Chloride Oral Tablet 20 MEQ 60 MEQ PO (10:03)
[2024-12-08] MEDS: TICAGRELOR 90 MG TABLET PO (10:03)
[2024-12-08 10:05] VITALS: BP 121/81; PULSE 72
[2024-12-08] MEDS: Metoprolol(XL)Succ 25 MG Tablet PO (10:05)
[2024-12-08] MEDS: Heparin Injection (Vial) 5,000 UNIT/ML VIAL 5000 UNIT SC (10:17)
--- NOTE | 2024-12-08 11:30 | CASEMGMT ---
RN DANIELLE in to discuss plans at discharge. Patient states he wishes to return to [facility] at disharge. Patient had no further questions or concerns. ALEX SANTOS updated discharge estate planning counselor to send updates to [facility]. CM will continue to follow this patient and plan for a safe discharge.
--- NOTE | 2024-12-08 12:22 | PCM.DC.SUM ---
Providers Date of Admission: 12/07/24 Primary Care Physician: Dr. Victor M Luke DO Reason For Visit: SHORTNESS OF BREATH. Diagnosis Discharge Diagnosis (1) DEAN (dyspnea on exertion): Status: Acute Code(s): R06.00 - Dyspnea, unspecified Plan Patient is a 79-year-old gentleman with recent history of acute inferior STEMI which was complicated by distal PLV dissection who was discharged to a longterm facility brought back with shortness of breath. Patient was found to have elevated D-dimer admitted to monitored bed VQ scan ordered for subsequent evaluation 1. Exertional dyspnea ? Patient was found to have elevated D-dimer admitted to monitored bed VQ scan ordered for subsequent evaluation ? Patient VQ scan came back with low probability for pulmonary embolism. Decision was made to discharge patient back to his ECF 2. Recent acute inferior wall [place] ? This was complicated by PLV dissection underwent emergency On 11/30 which showed subacute stent thrombosis at the proximal RCA s/p balloon angioplasty, along with thrombus embolization to the right posterior lateral ventricular branch s/p 2 new drug-eluting stents. Patient was subsequently readmitted following his initial evaluation with similar complaints seen in consultation by cardiology assessment was patient was having coronary vasospasms. Ranexa added to patient treatment regimen. 3. Physical deconditioning ? Patient was recently discharged to a longterm facility plan is for patient to be discharged back once pulmonary embolism is ruled out 4. Depression with anxiety ? Patient is on fluoxetine as well as Remeron at night plan is to continue 5. Diabetes mellitus type II -patient's oral hypoglycemics held. Placed on long acting insulin, Accu-Cheks a.c. and at bedtime and covered with sliding scale insulin 6.Chronic kidney disease stage IIIb ? Patient kidney function at baseline 7. DVT prophylaxis ? Subcu heparin Medications at Discharge Home Medications aspirin 81 mg tablet,delayed release 81 mg PO DAILY@0800 health maintenance 01/21/17 mirtazapine 15 mg tablet (Remeron) 15 mg PO QHS sleep 09/21/18 cyanocobalamin (vitamin B-12) 1,000 mcg capsule 1,000 mcg PO DAILY vitamin ##0 06/01/19 magnesium oxide 400 mg (241.3 mg magnesium) tablet 800 mg PO DAILY SUPPLEMENT 08/01/21 cetirizine 10 mg tablet 10 mg PO DAILY PRN Allergic Reaction 09/16/21 cholecalciferol (vitamin D3) 25 mcg (1,000 unit) tablet [address] 09/16/21 fluoxetine 40 mg capsule 80 mg PO DAILY DEPRESSION 90 days #180 caps 09/16/21 acetaminophen 325 mg tablet 650 mg PO Q6H PRN Pain 1-02/0910/12/23 atorvastatin 40 mg tablet 40 mg PO QHS CHOLESTEROL #90 tabs 06/14/24 nitroglycerin 0.4 mg sublingual tablet 0.4 mg sublingual Q5-15M PRN CHEST PAIN #25 tabs 06/14/24 pantoprazole 40 mg tablet,delayed release 40 mg PO DAILY GERD #90 tabs 06/14/24 potassium chloride 20 mEq tablet,extended release(part/cryst) 60 meq (3 x 20 mEq) PO BID supplement #180 tabs 06/14/24 amlodipine 5 mg tablet 5 mg PO QPM blood pressure 10/25/24 metolazone 2.5 mg tablet 2.5 mg PO QDAY diuretic 10/25/24 metoprolol succinate 25 mg tablet,extended release 24 hr 25 mg PO DAILY blood pressure #30 tabs 10/25/24 ticagrelor 90 mg tablet (Brilinta) 90 mg PO BID #60 tabs 12/02/24 empagliflozin 10 mg tablet (Jardiance) 10 mg PO DAILY #90 tabs 12/06/24 furosemide 40 mg tablet 40 mg PO DAILY #90 tabs 12/06/24 insulin lispro 100 unit/mL subcutaneous pen (Humalog KwikPen (U-100) Insulin) See Protocol subcut ACHS #0 mL 12/06/24 ranolazine 500 mg tablet,extended release,12 hr 500 mg PO BID #180 tabs 12/06/24 spironolactone 25 mg tablet 25 mg PO DAILY #90 tabs 12/06/24 Hospital Course Summary of Care Provided Minutes Spent on Discharge: 35 Physical Exam Narrative GENERAL: cooperative HEENT: Atraumatic; normocephalic EYES; Anicteric, Normal Conjunctiva NECK; supple, normal thyroid, RESPIRATORY: Diminished to auscultation CARDIOVASCULAR: Regular S1 S2, GI: soft, normoactive bowel sounds, : No Renal angle tenderness; EXTREMITIES: No edema, no clubbing, MUSCULOSKELETAL: no muscle wasting NEURO: Awake; no lateralizing signs. SKIN: No Rash PSYCH; Flat affect Weight / BMI Weight Weight: 98.883 kg Body Mass Index (BMI) 32.1 ABG / Lab / Microbiology Data 12/08/24 06:30 12/08/24 06:30 Laboratory: Laboratory Results - last 24 hr 12/07/24 11:04: D-Dimer Quant (PE/DVT) 1.61 H*, Magnesium 2.4 H, NT pro BNP II 2037 H 12/07/24 13:00: Troponin T Hi Sens 2 Hr 6442 H* 12/07/24 16:35: Troponin T Hi Sens 4Hr 6556 H* 12/07/24 17:36: POC Glucose 187 H 12/07/24 23:07: POC Glucose 222 H 12/08/24 06:30: WBC 10.5, RBC 4.47 L, Hgb 12.9 L, Hct 39.2 L, MCV 87.7, MCH 28.9, MCHC 32.9, RDW Std Deviation 42.8, RDW Coeff of Adrian 13.4, Plt Count 178, MPV 13.2 H, Immature Gran % (Auto) 0.900, Neut % (Auto) 74.1 H, Lymph % (Auto) 11.4 L, [place] % (Auto) 12.1 H, Eos % (Auto) 1.0, Baso % (Auto) 0.5, Absolute Neuts (auto) 7.8 H, Absolute Lymphs (auto) 1.20, Nucleated RBC % 0, Sodium 134, Potassium 3.4, Chloride 95 L, Carbon Dioxide 21.2, Anion Gap 18 H, BUN 44 H, Creatinine 2.84 H, Estim Creat Clear Calc 24.45 L, Est GFR (MDRD) Non-Af 22 L, BUN/Creatinine Ratio 15.6, Glucose 178 H, Calcium 9.6 12/08/24 06:57: POC Glucose 185 H 12/08/24 11:32: POC Glucose 249 H Radiography Diagnostic Testing: Radiology Impression Lung Scan-VQ NM 12/07/24 16:32 IMPRESSION: Low probability scan for pulmonary embolism. Reading Location: [id number] Instructions Discharge Activity: Return to Normal Activity Call your doctor if you observe: Fever of 101 or Higher, Shortness of breath, Fainting spells and Chest pain DC O2, CPAP, BIPAP Needs Home O2 Discharge instructions: No Meaningful Use Info Meaningful Use Meaningful Use Diagnoses (Choose all that apply): None applicable Discharge Plan Admission Admit Date/Time: 12/07/24 16:24 Attending Provider: Alex Sanon Primary Care Provider: Victor M Luke Consulting Providers: Shaan Santos Instructions Patient Instructions: ED Chest Pain, Uncertain Cause Additional Instructions / Restrictions: The case therapist wanted to make sure you are taking isosorbide, spironolactone, Lasix and Jardiance. Follow-up with the cardiology office. Discharge Orders/Prescriptions Prescriptions: Continued fluoxetine 40 mg capsule 80 mg PO DAILY 90 Days Qty: 180 magnesium oxide 400 mg (241.3 mg magnesium) tablet 800 mg PO DAILY cetirizine 10 mg tablet 10 mg PO DAILY PRN (Reason: Allergic Reaction) cholecalciferol (vitamin D3) 25 mcg (1,000 unit) tablet 25 mcg PO DAILY amlodipine 5 mg tablet 5 mg PO QPM metolazone 2.5 mg tablet 2.5 mg PO QDAY metoprolol succinate 25 mg tablet extended release 24 hr 25 mg PO DAILY Qty: 30 11RF aspirin 81 MG tablet 81 mg PO DAILY@0800 cyanocobalamin (vitamin B-12) 1,000 MCG capsule 1,000 mcg PO DAILY Qty: 0 acetaminophen 325 MG tablet 650 mg PO Q6H PRN (Reason: Pain 1-02/09) ticagrelor [Brilinta] 90 mg Tablet 90 mg PO BID Qty: 60 11RF furosemide 40 mg Tablet 40 mg PO DAILY Qty: 90 0RF spironolactone 25 mg Tablet 25 mg PO DAILY Qty: 90 0RF insulin lispro [Humalog KwikPen Insulin] 100 unit/mL Insulin Pen See Protocol subcut ACHS Qty: 0 0RF Protocol: 3. Sliding Scale Insulin Med Dosing Condition: 150-189 mg/dl = 1 unit Condition: 190-229 mg/dl = 2 units Condition: 230-269 mg/dl = 3 units Condition: 270-309 mg/dl = 4 units Condition: 310-349 mg/dl = 5 units Condition: 350-399 mg/dl = 6 units Condition: 400-449 mg/dl = 7 units Condition: Greater than 449 call physician Protocol Text: Suggested for: - Patients on Total Daily Insulin Dose of 37-55 units - Obese, infected, or steroid patients MEDIUM DOSING ALGORITHIM ranolazine 500 mg Tablet Extended Release 12 Hr 500 mg PO BID Qty: 180 0RF Jardiance 10 mg Tablet 10 mg PO DAILY Qty: 90 0RF mirtazapine [Remeron] 15 mg tablet 15 mg PO QHS nitroglycerin 0.4 mg tablet, sublingual 0.4 mg SUBLINGUAL Q5-15M PRN (Reason: CHEST PAIN) Qty: 25 3RF atorvastatin 40 mg tablet 40 mg PO QHS Qty: 90 3RF potassium chloride 20 mEq tablet,ER particles/crystals 60 meq PO BID Qty: 180 3RF pantoprazole 40 mg tablet,delayed release (DR/EC) 40 mg PO DAILY Qty: 90 3RF Referrals / Follow Up: Victor M Luke DO [Primary Care Provider] - Within 2 Weeks Disposition Disposition (needs filled in before D/C Order can be placed): [facility] Charges/Coding Visit Charges Inpatient E&M: 81869 Disch Hosp >30min
--- NOTE | 2024-12-08 12:27 | TREXTCAR_ITS ---
Diet Diet Order/Speech Therapy: INPATIENT Hospital Diet / Speech Therapy Order(s) 12/07/24 17:20 Diet: Cardiac: Calorie-Controlled Food consistency:: Regular Liquid Consistency:: Regular/Thin Fluid restriction:: 1500 mL How many daily calories?: 2000 calorie DC O2, CPAP, BIPAP needs Home O2 Discharge instructions: No Therapies Physical Therapy: Eval and Treat Occupational Therapy: Eval and Treat Problem/Diagnosis (1) DEAN (dyspnea on exertion): Status: Acute Code(s): R06.00 - Dyspnea, unspecified Plan Patient is a 79-year-old gentleman with recent history of acute inferior STEMI which was complicated by distal PLV dissection who was discharged to a long term facility brought back with shortness of breath. Patient was found to have elevated D-dimer admitted to monitored bed VQ scan ordered for subsequent evaluation 1. Exertional dyspnea ? Patient was found to have elevated D-dimer admitted to monitored bed VQ scan ordered for subsequent evaluation ? Patient VQ scan came back with low probability for pulmonary embolism. Decision was made to discharge patient back to his ECF 2. Recent acute inferior wall AZ ? This was complicated by PLV dissection underwent emergency On 11/30 which showed subacute stent thrombosis at the proximal RCA s/p balloon angioplasty, along with thrombus embolization to the right posterior lateral ventricular branch s/p 2 new drug-eluting stents. Patient was subsequently readmitted following his initial evaluation with similar complaints seen in consultation by cardiology assessment was patient was having coronary vasospasms. Ranexa added to patient treatment regimen. 3. Physical deconditioning ? Patient was recently discharged to a long term facility plan is for patient to be discharged back once pulmonary embolism is ruled out 4. Depression with anxiety ? Patient is on fluoxetine as well as Remeron at night plan is to continue 5. Diabetes mellitus type II -patient's oral hypoglycemics held. Placed on long acting insulin, Accu-Cheks a.c. and at bedtime and covered with sliding scale insulin 6.Chronic kidney disease stage IIIb ? Patient kidney function at baseline 7. DVT prophylaxis ? Subcu heparin Allergies/Procedures Done in Hospital Allergies No Known Allergies Allergy (Verified 12/07/24 10:57) Type of Care/Length of Stay Estimated LOS: Convalescent Care Less Than 30 days Type of Care Needed: Skilled Rehab Potential: Good Prognosis: Good Additional Orders/Day of Discharge Day of Discharge: 12/08/24 Discharge Plan Admission Admit Date/Time: 12/07/24 16:24 Attending Provider: Alex Sanon Primary Care Provider: Victor M Luke Consulting Providers: Shaan Santos Instructions Patient Instructions: ED Chest Pain, Uncertain Cause Additional Instructions / Restrictions: The flap lining binder wanted to make sure you are taking isosorbide, spironolactone, Lasix and Jardiance. Follow-up with the cardiology office. Discharge Orders/Prescriptions Prescriptions: Continued fluoxetine 40 mg capsule 80 mg PO DAILY 90 Days Qty: 180 magnesium oxide 400 mg (241.3 mg magnesium) tablet 800 mg PO DAILY cetirizine 10 mg tablet 10 mg PO DAILY PRN (Reason: Allergic Reaction) cholecalciferol (vitamin D3) 25 mcg (1,000 unit) tablet 25 mcg PO DAILY amlodipine 5 mg tablet 5 mg PO QPM metolazone 2.5 mg tablet 2.5 mg PO QDAY metoprolol succinate 25 mg tablet extended release 24 hr 25 mg PO DAILY Qty: 30 11RF aspirin 81 MG tablet 81 mg PO DAILY@0800 cyanocobalamin (vitamin B-12) 1,000 MCG capsule 1,000 mcg PO DAILY Qty: 0 acetaminophen 325 MG tablet 650 mg PO Q6H PRN (Reason: Pain -02/09) ticagrelor [Brilinta] 90 mg Tablet 90 mg PO BID Qty: 60 11RF furosemide 40 mg Tablet 40 mg PO DAILY Qty: 90 0RF spironolactone 25 mg Tablet 25 mg PO DAILY Qty: 90 0RF insulin lispro [Humalog KwikPen Insulin] 100 unit/mL Insulin Pen See Protocol subcut ACHS Qty: 0 0RF Protocol: 3. Sliding Scale Insulin Med Dosing Condition: 150-189 mg/dl = 1 unit Condition: 190-229 mg/dl = 2 units Condition: 230-269 mg/dl = 3 units Condition: 270-309 mg/dl = 4 units Condition: 310-349 mg/dl = 5 units Condition: 350-399 mg/dl = 6 units Condition: 400-449 mg/dl = 7 units Condition: Greater than 449 call physician Protocol Text: Suggested for: - Patients on Total Daily Insulin Dose of 37-55 units - Obese, infected, or steroid patients MEDIUM DOSING ALGORITHIM ranolazine 500 mg Tablet Extended Release 12 Hr 500 mg PO BID Qty: 180 0RF Jardiance 10 mg Tablet 10 mg PO DAILY Qty: 90 0RF mirtazapine [Remeron] 15 mg tablet 15 mg PO QHS nitroglycerin 0.4 mg tablet, sublingual 0.4 mg SUBLINGUAL Q5-15M PRN (Reason: CHEST PAIN) Qty: 25 3RF atorvastatin 40 mg tablet 40 mg PO QHS Qty: 90 3RF potassium chloride 20 mEq tablet,ER particles/crystals 60 meq PO BID Qty: 180 3RF pantoprazole 40 mg tablet,delayed release (DR/EC) 40 mg PO DAILY Qty: 90 3RF Referrals / Follow Up: Victor M Luke DO [Primary Care Provider] - Within 2 Weeks Disposition Disposition (needs filled in before D/C Order can be placed): Intermediate Facility
[2024-12-08 12:30] VITALS: BP 121/81; PULSE 72; RESP 18; TEMP 36.5; O2SAT 96
--- NOTE | 2024-12-08 12:32 | CASEMGMT ---
Social Work PASRR completed in [facility] for admission to SNF. ALISSON Reyes
--- NOTE | 2024-12-08 14:32 | CASEMGMT ---
Discharge Planning Discharge orders, signed med list, and transport time sent to [facility]. Physicians will transport pt by wheelchair at 2:30p. Nursing, SW, and pt updated. Pt will update his . Maria R Elliott DC Planning Asst.
--- NOTE | 2024-12-08 14:48 | NURSING ---
Report called to nurse Lipscomb for pt to be d/c back to [facility].
--- NOTE | 2024-12-08 15:34 | CPS ---
holter monitor removed at 1522 on 12/08/2024. pt stated that he accidently left the diary at home for the holter monitor at the [facility]. [facility] made aware and a new diary was filled out
--- NOTE | 2024-12-08 15:57 | CHAPLAIN ---
Type of Pastoral Visit _x__ Initial Visit ___ Follow-up Visit ___ On-call Visit ___ General Patient Visit ___ Spiritual Assessment ___ Family Conference ___ Bereavement ___ Rapid Response ___ Code Blue ___ Other (describe below) Pastoral Care Referral From _x__ Patient ___ Family ___ Nurse ___ Physician ___ Business Process Engineer ___ Longwall Shearer Operator ___ Other (describe below) Sacrament/Intervention _x__ Active listening ___ Anointing ___ Alevism ___ Bereavement ___ Communion ___ Nicole exploration ___ _x__ Life review _x__ Prayer ___ Reconciliation ___ Sacrament of Sick _x__ Supportive presence ___ Wedding ___ Other (describe below) Pastoral Comments patient has had several admissions in the last two weeks and has been seen now several times; is with him; pt says that he is about to be transferred to an ECF and he is good with that; pt has had a brief experience there and believes it is a good situation with hope for some return to his activity; spouse is hopeful too about this and says that the family has had good care from the ECF where he is going; pt has support from family and his nicole community; pt welcomes prayer and says that was real good;
== END 2024-12-08 16:12 | disposition skilled nursing facility (03) ==
LOC: ED 16:30 → PCU 16:37
PROVIDERS: Physician Assistant; Emergency Provider Surgery; PCP Family Medicine; Visit Provider Internal Medicine
DX: R06.00 Dyspnea, unspecified (principal); I13.0 Hypertensive heart and chronic kidney disease with heart failure and stage 1 through stage 4 chronic kidney disease, or unspecified chronic kidney disease; I50.32 Chronic diastolic (congestive) heart failure; J44.9 Chronic obstructive pulmonary disease, unspecified; I22.1 Subsequent ST elevation (STEMI) myocardial infarction of inferior wall; Z79.4 Long term (current) use of insulin; E11.22 Type 2 diabetes mellitus with diabetic chronic kidney disease; N18.32 Chronic kidney disease, stage 3b; I25.2 Old myocardial infarction; Z79.899 Other long term (current) drug therapy; T82.855A Stenosis of coronary artery stent, initial encounter; Z87.891 Personal history of nicotine dependence; I25.10 Atherosclerotic heart disease of native coronary artery without angina pectoris; Z86.16 Personal history of COVID-19; R79.89 Other specified abnormal findings of blood chemistry; Z95.5 Presence of coronary angioplasty implant and graft; Z79.84 Long term (current) use of oral hypoglycemic drugs; E78.5 Hyperlipidemia, unspecified; Z79.02 Long term (current) use of antithrombotics/antiplatelets; Z86.73 Personal history of transient ischemic attack (TIA), and cerebral infarction without residual deficits; Z90.49 Acquired absence of other specified parts of digestive tract; R06.02 Shortness of breath; G47.00 Insomnia, unspecified; F41.8 Other specified anxiety disorders
CPT/HCPCS: 36415; 71046; 78582; 80048; 82962; 83735; 83880; 84484; 85025; 85379; 93005; 94002; 94003; 96372; 96374; 96375; 99221; 99285; A9540; A9567; A4216; G0378; J2405

== ENCOUNTER → 2024-12-12 | Outpatient (CLI) | payer MEDICARE, OTHER, SELFPAY ==
[2018-08-03 13:04] VITALS: BMI 19.8
[2024-12-12 12:51] LABS: Anion Gap 17 (5-15); BUN 56 mg/dL (4-19); BUN/Creat Ratio 17.9 RATIO (10-20); Calcium,Total 9.6 mg/dL (7.6-11.0); Carbon Dioxide 18.2 mmol/L (21.0-32.0); Chloride 93 mmol/L (98-108); Glucose 289 mg/dL (70-99); Potassium 5.0 mmol/L (3.3-5.1)
== END | disposition home or self-care (01) ==
LOC: LAB 11:43
PROVIDERS: PCP Family Medicine; Referring Provider Nurse Practitioner Family; Visit Provider Nurse Practitioner Family
DX: I50.33 Acute on chronic diastolic (congestive) heart failure (principal); G81.94 Hemiplegia, unspecified affecting left nondominant side; D72.829 Elevated white blood cell count, unspecified; I25.2 Old myocardial infarction
CPT/HCPCS: 36415; 80048

== ENCOUNTER 2024-12-15 11:56 | Inpatient (IN) | payer MEDICARE, OTHER, SELFPAY ==
[2018-08-03 13:04] VITALS: BMI 19.8
[2024-12-15] VITALS (9 sets, daily range): BP systolic 102–127; BP diastolic 73–90; PULSE 63–98; RESP 14–24; TEMP 36.4–36.8; O2SAT 94–98; BMI 32.2; BMI 31.2
--- NOTE | 2024-12-15 12:11 | EKG12_ITS ---
Test Reason : Blood Pressure : */* mmHG Vent. Rate : 82 BPM Atrial Rate : 82 BPM P-R Int : 170 ms QRS Dur : 82 ms QT Int : 396 ms P-R-T Axes : 66 -34 121 degrees QTcB Int : 462 ms Critical Test Result: Normal sinus rhythm Left axis deviation Inferior infarct , possibly acute T wave abnormality, consider lateral ischemia Consider right ventricular involvement in acute inferior infarct Abnormal ECG Confirmed by CONCHIS PALOMO, DELFINA ([id number]), makeup editor VERONICA SCOTT ([id number]) on 12/21/2024 1:33:21 PM Referred By: Confirmed By: DELFINA BALDERRAMA MD
--- NOTE | 2024-12-15 12:12 | EX.ED.DYSGE1 ---
HPI History of Present Illness Chief Complaint: Chest Pain Narrative Narrative: 79-year-old male history of CKD, heart failure, angina, CAD, COPD presents emergency department for complaint of chest pain. Patient states he was at physical therapy when he started to have active chest pain in the center of his chest been like a tightness and pressure. Patient states this has been on and off over the past couple weeks has had previous stents placed recently with cath done 2 weeks ago most recently. Denies any radiation, back pain. Patient states he does have associated shortness of breath with the chest pain. Patient was given aspirin 324 mg and nitroglycerin by EMS. States that it helped moderately. Denies any leg edema, fevers, cough. [facility] Medical History Recent ST elevation myocardial infarction (STEMI) Chest pain History of acute inferior wall [place] Acute ST elevation myocardial infarction (STEMI) of inferior wall Anxiety Depression Diabetes Kidney disease Former smoker Atrial fibrillation Myocardial infarct Coronary artery disease Hypertension TIA (transient ischemic attack) Anemia Shortness of breath Unstable angina Fatigue Syncope Left-sided weakness History of COVID-19 Presence of stent in coronary artery (~08/31/22) Dyslipidemia Diabetes mellitus Chronic kidney disease Coronary artery disease Angina pectoris Abnormal PFT Chest heaviness Palpitations DEAN (dyspnea on exertion) Dizziness Leg pain Cough Exposure to COVID-19 virus Nonhealing nonsurgical wound with fat layer exposed Laceration without foreign body of scalp, subsequent encounter Acute left-sided weakness Essential hypertension CHF (congestive heart failure) History of melanoma Obesity (BMI 35.0-39.9 without comorbidity) CAD (coronary artery disease) 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.9) COPD (chronic obstructive pulmonary disease) TIA (transient ischemic attack) Obstructive sleep apnea Atherosclerotic heart disease [place] coronary artery w/angina pectoris Type 2 diabetes mellitus without complications Hyperlipidemia Obesity Home Medications ?Medication ?Instructions ?Recorded ?Last Taken ?Type aspirin 81 mg tablet,delayed 81 mg PO DAILY@0800 health 01/21/17 10/11/23 History release maintenance mirtazapine 15 mg tablet (Remeron) 15 mg PO QHS sleep 09/21/18 10/11/23 History cyanocobalamin (vitamin B-12) 1,000 mcg PO DAILY vitamin ##0 06/01/19 10/11/23 History 1,000 mcg capsule magnesium oxide 400 mg (241.3 mg 800 mg PO DAILY SUPPLEMENT 08/01/21 10/11/23 History magnesium) tablet cholecalciferol (vitamin D3) [address] 09/16/21 10/11/23 History mcg (1,000 unit) tablet fluoxetine 40 mg capsule 80 mg PO DAILY DEPRESSION 90 days 09/16/21 10/11/23 History #180 caps acetaminophen 325 mg tablet 650 mg PO Q6H PRN Pain 1-02/0910/12/23 Unknown History atorvastatin 40 mg tablet 40 mg PO QHS CHOLESTEROL #90 tabs 06/14/24 Unknown Rx nitroglycerin 0.4 mg sublingual 0.4 mg sublingual Q5-15M PRN CHEST 06/14/24 Unknown Rx tablet PAIN #25 tabs pantoprazole 40 mg tablet,delayed 40 mg PO DAILY GERD #90 tabs 06/14/24 Unknown Rx release potassium chloride 20 mEq 60 meq (3 x 20 mEq) PO BID 06/14/24 Unknown Rx tablet,extended release(part/cryst) supplement #180 tabs amlodipine 5 mg tablet 5 mg PO QPM blood pressure 10/25/24 Unknown History metoprolol succinate 25 mg 25 mg PO DAILY blood pressure #30 10/25/24 Unknown Rx tablet,extended release 24 hr tabs ticagrelor 90 mg tablet (Brilinta) 90 mg PO BID #60 tabs 12/02/24 Unknown Rx empagliflozin 10 mg tablet 10 mg PO DAILY #90 tabs 12/06/24 Unknown Rx (Jardiance) furosemide 40 mg tablet 40 mg PO DAILY #90 tabs 12/06/24 Unknown Rx insulin lispro 100 unit/mL See Protocol subcut ACHS #0 mL 12/06/24 Unknown Rx subcutaneous pen (Humalog KwikPen (U-100) Insulin) ranolazine 500 mg tablet,extended 500 mg PO BID #180 tabs 12/06/24 Unknown Rx release,12 hr spironolactone 25 mg tablet 25 mg PO DAILY #90 tabs 12/06/24 Unknown Rx cetirizine 10 mg tablet 10 mg PO DAILY Allergic Reaction 12/12/24 Unknown History metolazone 2.5 mg tablet 2.5 mg PO .PRN diuretic 12/12/24 Unknown History Allergy/AdvReac Type Severity Reaction Status Date / Time No Known Allergies Allergy Verified 12/12/24 10:23 Family History Father Parkinsons disease Prostate cancer Mother Osteoporosis Surgical History Presence of coronary angioplasty implant and graft (11/27/24) History of tympanostomy tube placement History of percutaneous transluminal coronary angioplasty (08/18/18) History of herniorrhaphy Hx of cholecystectomy History of tonsillectomy History of prostatectomy Social History household members: spouse and none housing: [facility] Smoking Status: Former smoker quit date: 05/03/98 pack-years: 50 how long ago did patient quit smokin years ago alcohol intake: never substance use type: does not use caffeine: Yes Type: coffee and tea Number of servings: 6 EXAM Physical Exam Const Vital Signs: 12/15/24 11:57 12/15/24 11:57 12/15/24 12:11 Temperature 97.6 F L Temperature Source Temporal Pulse Rate 98 Respiratory Rate 24 H Respiratory Effort Normal Non-Labored Blood Pressure 127/90 H Blood Pressure Mean 102 Pulse Ox 98 Oxygen Delivery Method Room Air 12/15/24 12:57 Temperature Temperature Source Pulse Rate 72 Respiratory Rate 14 Respiratory Effort Blood Pressure 109/82 H Blood Pressure Mean 91 Pulse Ox 95 Oxygen Delivery Method Room Air Chest Wall inspection of chest normal and palpation of chest normal Resp normal respiratory effort and clear to auscultation bilaterally Auscultation: Negative for rales or wheezes Cardio regular rate, regular rhythm and no murmurs GI non-tender and non-distended Palpation: soft; Negative for guarding Extremity General Extremety ED: Negative for edema General Extremity: Negative for edema Skin Skin Narrative: bruising over the lower abdomen, late stages of healing based on appearance MDM MDM MDM Narrative Medical decision making narrative: 79-year-old male history of CKD, heart failure, angina, CAD, COPD presents emergency department for complaint of chest pain. Patient states he was at physical therapy when he started to have active chest pain in the center of his chest been like a tightness and pressure. Patient states this has been on and off over the past couple weeks has had previous stents placed recently with cath done 2 weeks ago most recently. Denies any radiation, back pain. Patient states he does have associated shortness of breath with the chest pain. Patient was given aspirin 324 mg and nitroglycerin by EMS. States that it helped moderately. Denies any leg edema, fevers, cough.EKG independently interpreted by myself showing evidence of normal sinus rhythm. On physical exam patient having normal heart sounds, lungs clear to auscultation bilaterally on room air. EKG showing ventricular rate 98, PA 186, QTc 357. Left axis deviation. Compared to previous EKG on 12/07/2024 ST elevation in lead III largely unchanged. Concerned that there may be slightly more elevation in lead II and V6 compared to 12/07 concerning for new ischemia. STEMI alert activated. 5000 mg heparin given. Cardiology did evaluate patient bedside canceled STEMI alert as they believe that EKG from 12/07 largely does not show new ischemic changes. Patient was recently cathed 2 weeks ago showing no occlusions of previously placed stents. They stated that they will obtain bedside echocardiogram and will trend troponins for now. Low suspicion for pulmonary embolism as patient had previous VQ scan on 12/08 showing negative study. Cardiology stated that with patient's presentation and recent stents they would like patient to be admitted as he is continuing to have chest pain. Unsure of possible Ric syndrome. Would like to have troponins trended with initial elevation today of 1100. Cardiology states they will also be starting colchicine and unsure of any immediate catheterization at this time however we will continue to follow troponins. HEART score of 9. Spoke with the hospitalist, Ramonita Herron to [facility] to patient with further workup and admission for troponin trending and observation with cardiology consult. Vital stable at this time. Lab Data Attestation: I reviewed the patient's lab results. Lab results narrative: History of CKD, creatinine at 2.9 improved from 3.1 on previous labs. Patient does have a slight elevation of BNP though does remain on room air. Troponin level of 1100. Labs: Laboratory Results - last 24 hr 12/15/24 12:25 WBC 14.8 H RBC 4.72 Hgb 13.7 Hct 40.2 MCV 85.2 MCH 29.0 MCHC 34.1 RDW Std Deviation 41.6 RDW Coeff of Adrian 13.4 Plt Count 242 MPV 13.4 H Immature Gran % (Auto) 0.800 Neut % (Auto) 79.3 H Lymph % (Auto) 9.7 L [place] % (Auto) 9.9 Eos % (Auto) 0.1 Baso % (Auto) 0.2 Absolute Neuts (auto) 11.7 H Absolute Lymphs (auto) 1.43 Nucleated RBC % 0 Sodium 129 L Potassium 4.5 Chloride 91 L Carbon Dioxide 18.4 L Anion Gap 19 H BUN 59 H Creatinine 2.90 H Estim Creat Clear Calc 23.97 L Est GFR (MDRD) Non-Af 21 L BUN/Creatinine Ratio 20.4 H Glucose 266 H Calcium 9.5 Troponin T High Sens 1137 H* D NT pro BNP II 1961 H Radiography Chest X-Ray - ED: 1 View, Read by ED Physician and Unchanged (Largely unchanged from 12/07/2024) Diagnostic Testing: Clinical Impression(s) from Imaging Studies Chest X-Ray 12/15/24 13:10 IMPRESSION: Hyperinflation. No acute abnormality is seen. Reading Location: [place] [id number] Chest x-ray independently interpreted myself showing cardiomegaly. Largely unchanged from previous compared on 12/07/2024 EKG Initial EKG: Attestation: I personally reviewed and interpreted this EKG as follows: Interpretation: Sinus Rhythm Comments: EKG independently interpreted by myself showing evidence of normal sinus rhythm. Ventricular rate 98, PA 186, QTc 357. Left axis deviation. Compared to previous EKG on 12/07/2024 ST elevation in lead III largely unchanged. Concerned that there may be slightly more elevation in lead II and V6 compared to 12/07 concerning for new ischemia. STEMI alert activated. Prior EKG tracings: available for review (12/07/24) Management Discussion w/another healthcare provider: Hospitalist and Transfer Specialist Discharge Plan Dx/Rx/DC Orders Clinical Impression: Chest pain Disposition Disposition: Acute Care Hospital [facility]
[2024-12-15] MEDS: Heparin Injection (Vial) 5,000 UNIT/ML VIAL 5000 UNIT IV (12:21)
[2024-12-15 12:41] LABS: Hematocrit 40.2 % (40-54); Hemoglobin 13.7 g/dL (13.0-16.5); Immature Granulocytes Count 0.120 X10^3/uL (0.0-0.0); Mean Corp Hgb Conc 34.1 g/dL (32-36); Mean Corpuscular Volume 85.2 fL (80-94); Mean Platelet Vol. 13.4 fl (6.2-12.0); NRBC Flagged by Analyzer 0 % (0-5); Platelet Count 242 K/mm3 (150-450); RBC Distribution Width CV 13.4 % (11.6-14.6); RBC Distribution Width SD 41.6 fl (35.1-43.9); Red Blood Count 4.72 M/mm3 (4.6-6.2); White Blood Count 14.8 K/mm3 (4.4-11.0)
--- NOTE | 2024-12-15 12:42 | CM.ED ---
Social work Reason for referral: STEMI alert This SW responded to the STEMI alert. SW knows patient and patient's family from the community and offered supportive presence. SW entered patient's room prior to family arrival and patient recognized SW. Patient requested SW contact patient's telephone collector to inform the telephone collector of patient's current condition. SW did so and verified with lining scrubber Pepper that patient's family had been called as well. When patient's arrived, SW took patient's back to patient's room. Active listening and supportive presence provided. SW to remain available for support or other needs. Kristi Raza, GEODUCK DIVER, AIRCRAFT MANAGER
[2024-12-15 12:46] LABS: Prothrombin Time (Protime)PT. 16.8 SECONDS (11.7-14.9)
[2024-12-15 12:51] LABS: Partial Thromboplast Time 222.8 Seconds (24.1-36.2)
--- NOTE | 2024-12-15 13:10 | RAD_ITS ---
PROCEDURE: CHEST 1 VIEW (PORTABLE) 12/15/2024 REASON FOR EXAM: CHEST PAIN TECHNIQUE: Frontal view of the chest. COMPARISON: Prior study dated December 07, 2024. FINDINGS: Hardware: EKG electrodes are seen. Heart: Heart size is upper limits of normal. Lungs: Hyperinflation. The lungs are clear. Bones: Degenerative changes are identified within the thoracic spine. Findings suggestive of healed right rib fractures. Other: Prior lower cervical fusion. RAD/Chest 1 View (Portable) IMPRESSION: Hyperinflation. No acute abnormality is seen. Reading Location: [place] [id number]
--- NOTE | 2024-12-15 13:12 | ECHOL_ITS ---
Reason For Study Reason For Study: Assess LV function, NSTEMI Procedure This was a limited 2D transthoracic echocardiogram. Exam performed portable in ED. Left Ventricle Normal LV size. Mild concentric left ventricular hypertrophy. The estimated ejection fraction is 48 %. Unable to assess diastolic function based on available data. The mid inferior inferobasal segment appeared to be moderately severely hypokinetic. Right Ventricle Normal RV size. Normal systolic function. Atria The left and right atria are normal. Tricuspid Valve Unable to estimate RV systolic pressure due to insufficient tricuspid regurgitant envelope. Aortic Valve Trisinus/trileaflet aortic valve. Mild diffuse aortic valve thickening. There is no aortic stenosis. Pulmonic Valve Trivial pulmonic valve insufficiency. Great Vessels Normal sized aortic root. Pericardium/Pleural Small (<1.0 cm) pericardial effusion. MMode/2D Measurements & Calculations LVIDd: 4.1 cm IVSd: 1.1 cm LVIDs: 3.3 cm LVPWd: 1.1 cm FS: 20.4 % ECHO/Echo, Limited Study Interpretation Summary Normal left ventricular size with mild concentric left ankle hypertrophy and th e estimated ejection fraction is 48 %. The mid inferior inferobasal segment appeared to be moderately severely hypokin etic Unable to assess diastolic function based on available data. Normal RV size. Normal systolic function. Small (<1.0 cm) pericardial effusion. when compared to previous echocardiographic study earlier in the month, no sign ificant changes noted Ordering Physician: Sunil Faye Referring Physician: Victor M Luke Performed By: Kimberlee Everett RDCS
[2024-12-15 13:17] LABS: Anion Gap 19 (5-15); BUN 59 mg/dL (4-19); BUN/Creat Ratio 20.4 RATIO (10-20); Calcium,Total 9.5 mg/dL (7.6-11.0); Carbon Dioxide 18.4 mmol/L (21.0-32.0); Chloride 91 mmol/L (98-108); Estimated Creatinine Clearance 23.97 ml/min (50-250); Glucose 266 mg/dL (70-99); Potassium 4.5 mmol/L (3.3-5.1)
[2024-12-15 13:19] LABS: Pro- Brain NATRIURETIC PEPTIDE 1961 pg/mL (<=1800); Troponin T High Sensitivity 1137 ng/L (<=22)
--- NOTE | 2024-12-15 13:20 | ED.RN ---
Critical troponin of 1,[address] Weldon notified.
--- NOTE | 2024-12-15 13:37 | CON.PCM.CA_ITS ---
Assessment & Plan Assessment/Plan (1) Chest pain: PLAN: Concerning however by comparing the EKGs over the last 1 month with multiple ER visits and elevated high-sensitivity troponin with RCA stent thrombosis, his inferior Q waves and persistent ST segment elevation of at least 1 mm appears to be stable and the same. His high-sensitivity troponin is showing a downtrend of 1100 compared to his previous troponin over 7000 a week ago. His last cardiac catheterization on December 02, 2024 demonstrated patent stent in the RCA. There is a small pericardial effusion that may raise the possibility of post TX pericarditis and may explain some of his recurrent chest pain syndrome. Will initiate colchicine cautiously as we are trying to avoid NSAIDs here specially with his renal insufficiency and being on dual antiplatelet therapy. Will continue the dual antiplatelet therapy previously prescribed and may continue with long-term as a mono antiplatelet therapy with ticagrelor due to multiple layers of stents in the RCA with previous stent thrombosis and extensive 360 degree of calcifications underneath the stents that limited the percutaneous options. Previous shockwave lithotripsy was utilized. The family as well as the patient are very comfortable with the above plan and will continue to downtrend troponin enzymes but may change strategy and proceed with an invasive revisualization of the right coronary artery if troponin enzymes starts increasing. Or chest pain recurs. Continue to use morphine as needed. (2) CKD (chronic kidney disease) stage 4, GFR 15-29 ml/min: PLAN: Will avoid NSAIDs at this time and try to limit the contrast related studies to the minimum and absolutely needed (3) Central sleep apnea: PLAN: Continue CPAP (4) Diastolic heart failure: QUALIFIERS: Heart failure chronicity: chronic Qualified Code(s): I50.32 - Chronic diastolic (congestive) heart failure PLAN: At the present time he has combined systolic and diastolic dysfunction LVEF 45%, appears euvolemic and in no acute volume overload status, continue the current medical therapy previously prescribed for the above moderate LV systolic dysfunction (5) History of percutaneous transluminal coronary angioplasty: PLAN: Multiple layers of drug-eluting stents in the right coronary artery including previous paclitaxel coated stent in the remote past. Recent shockwave lithotripsy and PCI to RCA but last cardiac authorization demonstrated patent stents on December 02, 2024 (6) Angina pectoris: PLAN: Continue beta-jeffrey/ranolazine (7) Pericardial effusion: PLAN: Small and may be reactive for which we will try short course of colchicine and also may consider short course of steroids (8) Type 2 diabetes mellitus without complications: QUALIFIERS: Diabetes mellitus group home insulin use: without group home use Qualified Code(s): E11.9 - Type 2 diabetes mellitus without complications (9) Obstructive sleep apnea: HPI Consult Data Date of Consult: 12/15/24 HPI Narrative Reason for Consultation: Non-STEMI HPI Narrative: GERRY GARCIA, is a 79 M who presents from rehab facility following a session of PT with chest pain syndrome. The patient has had an extensive previous coronary artery disease history with previous inferior wall myocardial infarction and multiple percutaneous interventions of the right coronary artery dating back to 2022 in addition to the PLV branch and has had multiple repeated ER visits following that, and in late October 2024, underwent PCI to right coronary artery in the setting of stent thrombosis and was started on dual antiplatelet therapy with aspirin and ticagrelor. A follow-up cardiac evaluation on December 02, 2024 also in the ER setting of chest pain syndrome that demonstrated patent stents in the right coronary artery however his high-sensitivity troponin enzymes continue to be elevated and today 1100 compared to the last admission December [id number]. His EKG continues to demonstrate significant ST segment elevation with Q waves inferiorly of at least 1 mm persistent elevation and an echocardiographic study was performed today at the bedside that demonstrated small pericardial effusion not hemodynamically significant with LVEF 45 to 50% with akinesis to severe hypokinesis of the inferior wall. The patient became pain-free at the ER with 1 injection of 2 mg of morphine and he has no arrhythmia with stable heart rate in the 70s and stable blood pressure 130/70. He is in no acute respiratory distress and extensive discussion with the patient as well as his family at the bedside with regard to the next steps specially with his underlying renal insufficiency and stage IV chronic kidney disease which would predispose him to acute kidney injury with contrast-induced nephropathy if we proceed with an invasive cardiac catheterization and contrast use. He has underlying extensive past medical history as described below but include COPD, hypertension, dyslipidemia, degenerative joint disease, moderate obesity class II, sleep apnea, type 2 diabetes mellitus, and remote history of T[facility] Medical History Recent ST elevation myocardial infarction (STEMI) Chest pain History of acute inferior wall TX Acute ST elevation myocardial infarction (STEMI) of inferior wall Anxiety Depression Diabetes Kidney disease Former smoker Atrial fibrillation Myocardial infarct Coronary artery disease Hypertension TIA (transient ischemic attack) Anemia Shortness of breath Unstable angina Fatigue Syncope Left-sided weakness History of COVID-19 Presence of stent in coronary artery (~08/31/22) Dyslipidemia Diabetes mellitus Chronic kidney disease Coronary artery disease Angina pectoris Abnormal PFT Chest heaviness Palpitations DEAN (dyspnea on exertion) Dizziness Leg pain Cough Exposure to COVID-19 virus Nonhealing nonsurgical wound with fat layer exposed Laceration without foreign body of scalp, subsequent encounter Acute left-sided weakness Essential hypertension CHF (congestive heart failure) History of melanoma Obesity (BMI 35.0-39.9 without comorbidity) CAD (coronary artery disease) 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.9) COPD (chronic obstructive pulmonary disease) TIA (transient ischemic attack) Obstructive sleep apnea Atherosclerotic heart disease [place] coronary artery w/angina pectoris Type 2 diabetes mellitus without complications Hyperlipidemia Obesity Home Medications ?Medication ?Instructions ?Recorded ?Last Taken ?Type aspirin 81 mg tablet,delayed 81 mg PO DAILY@0800 healt h 01/21/17 10/11/23 History release maintenance mirtazapine 15 mg tablet (Remeron) 15 mg PO QHS sleep 09/21/18 10/11/23 History cyanocobalamin (vitamin B-12) 1,000 mcg PO DAILY vitam in ##0 06/01/19 10/11/23 History 1,000 mcg capsule magnesium oxide 400 mg (241.3 mg 800 mg PO DAILY SUPPL EMENT 08/01/21 10/11/23 History magnesium) tablet cholecalciferol (vitamin D3) [address] 10/11/23 History mcg (1,000 unit) tablet fluoxetine 40 mg capsule 80 mg PO DAILY DEPRESSION 90 days 09/16/21 10/11/23 History #180 caps acetaminophen 325 mg tablet 650 mg PO Q6H PRN Pain 1-1 10/12/23 Unknown History atorvastatin 40 mg tablet 40 mg PO QHS CHOLESTEROL #90 tabs 06/14/24 Unknown Rx nitroglycerin 0.4 mg sublingual 0.4 mg sublingual Q5-1 5M PRN CHEST 06/14/24 Unknown Rx tablet PAIN #25 tabs pantoprazole 40 mg tablet,delayed 40 mg PO DAILY GERD #90 tabs 06/14/24 Unknown Rx release potassium chloride 20 mEq 60 meq (3 x 20 mEq) PO BID 0 06/14/24 Unknown Rx tablet,extended release(part/cryst) supplement #180 ta bs amlodipine 5 mg tablet 5 mg PO QPM blood pressure 0 10/25/24 Unknown History metoprolol succinate 25 mg 25 mg PO DAILY blood pressu re #30 10/25/24 Unknown Rx tablet,extended release 24 hr tabs ticagrelor 90 mg tablet (Brilinta) 90 mg PO BID #60 ta bs 12/02/24 Unknown Rx empagliflozin 10 mg tablet 10 mg PO DAILY #90 tabs 10/25 Unknown Rx (Jardiance) furosemide 40 mg tablet 40 mg PO DAILY #90 tabs 10/25 Unknown Rx insulin lispro 100 unit/mL See Protocol subcut ACHS #0 mL 12/06/24 Unknown Rx subcutaneous pen (Humalog KwikPen (U-100) Insulin) ranolazine 500 mg tablet,extended 500 mg PO BID #180 t abs 12/06/24 Unknown Rx release,12 hr spironolactone 25 mg tablet 25 mg PO DAILY #90 tabs Unknown Rx cetirizine 10 mg tablet 10 mg PO DAILY Allergic Reac tion 12/12/24 Unknown History metolazone 2.5 mg tablet 2.5 mg PO .PRN diuretic 12/01 06/27 Unknown History Allergy/AdvReac Type Severity Reaction Status Date / Time No Known Allergies Allergy Verified 12/12/24 10:23 Family History Father Parkinsons disease Prostate cancer Mother Osteoporosis Surgical History Presence of coronary angioplasty implant and graft (11/27/24) History of tympanostomy tube placement History of percutaneous transluminal coronary angioplasty (08/18/18) History of herniorrhaphy Hx of cholecystectomy History of tonsillectomy History of prostatectomy Social History household members: spouse and none housing: long term Smoking Status: Former smoker quit date: 05/03/98 pack-years: 50 how long ago did patient quit smokin years ago alcohol intake: never substance use type: does not use caffeine: Yes Type: coffee and tea Number of servings: 6 ROS ROS Narrative As per HPI Physical Exam Const alert and oriented x3 Orientation / Consciousness: awake HEENT normocephalic and head/scalp atraumatic Eyes PERRL and EOMs intact bilaterally Neck full ROM and no lymphadenopathy Carotids: normal carotid upstroke Lymph Lymphatic: no lymphadenopathy noted Chest inspection of chest normal Resp normal respiratory effort Cardio regular rate and regular rhythm GI normal to inspection, nondistended, normoactive bowel sounds Palpation: no hepatosplenomegaly no CVA tenderness Extremity normal to inspection and no clubbing, cyanosis or edema Psych mental status grossly normal Objective Data Vital Signs: Vital Signs Temp Pulse Resp BP Pulse Ox O2 Del Method 97.6 F L 72 14 109/82 H 95 Room Air 12/15/24 11:57 12/15/24 12:57 12/15/24 12:57 12/15/24 12:57 12/15/24 12:57 12/15/24 12:57 Oxygen Delivery Method Room Air Weight: 218 lb 7.649 oz Body Mass Index (BMI) 32.2 Intake & Output: Intake and Output for Last 24 Hours 12/13/24 12/14/24 12/15/24 23:59 23:59 23:59 Intake Total 0 / 0 Balance 0 / 0 Lab / Micro Data Attestation: I reviewed the patient's lab results. 12/15/24 12:25 12/15/24 12:25 Labs: Laboratory Results - last 24 hr 12/15/24 12:25: WBC 14.8 H, RBC 4.72, Hgb 13.7, Hct 40.2, MCV 85.2, MCH 29.0, MCHC 34.1, RDW Std Deviation 41.6, RDW Coeff of Adrian 13.4, Plt Count 242, MPV 13.4 H, Immature Gran % (Auto) 0.800, Neut % (Auto) 79.3 H, Lymph % (Auto) 9.7 L , Winn % (Auto) 9.9, Eos % (Auto) 0.1, Baso % (Auto) 0.2, Absolute Neuts (auto) 11.7 H, Absolute Lymphs (auto) 1.43, Nucleated RBC % 0, Sodium 129 L, Potassium 4.5, Chloride 91 L, Carbon Dioxide 18.4 L, Anion Gap 19 H, BUN 59 H, Creatinine 2.90 H, Estim Creat Clear Calc 23.97 L, Est GFR (MDRD) Non-Af 21 L, B UN/Creatinine Ratio 20.4 H, Glucose 266 H, Calcium 9.5, Troponin T High Sens 1137 H* D, NT pro BNP II 1961 H Rhythm Strip Rhythm Strip: Sinus Rhythm Cardiology Labs/Tests 12/15/24 12:25: WBC 14.8 H, RBC 4.72, Hgb 13.7, Hct 40.2, MCV 85.2, MCH 29.0, MCHC 34.1, Plt Count 242, MPV 13.4 H, Immature Gran % (Auto) 0.800, Neut % (Auto) 79.3 H, Lymph % (Auto) 9.7 L, Winn % (Auto) 9.9, Eos % (Auto) 0.1, Baso % (Auto) 0.2, Absolute Neuts (auto) 11.7 H, Nucleated RBC % 0, Sodium 129 L, Potassium 4.5, Chloride 91 L, Carbon Dioxide 18.4 L, Anion Gap 19 H, BUN 59 H, C reatinine 2.90 H, Est GFR (MDRD) Non-Af 21 L, BUN/Creatinine Ratio 20.4 H, G lucose 266 H, Calcium 9.5 Rhythm: EKG: ECHO: Stress Test: Cardiac Cath: PCI: CT Surgery: Holter monitor: EPS: PPM: CXR: Chest CT Scan: Radiography Diagnostic Testing: Radiology Impression Chest X-Ray 12/15/24 13:10 IMPRESSION: Hyperinflation. No acute abnormality is seen. Reading Location: [facility] [place] Risk Score for UA/STEMI Assesmment (YES = 1) Risk Stratification Applicable: No
--- NOTE | 2024-12-15 13:40 | CHAPLAIN ---
Type of Pastoral Visit ___ Initial Visit ___ Follow-up Visit ___ On-call Visit ___ General Patient Visit ___ Spiritual Assessment ___ Family Conference ___ Bereavement _x__ Rapid Response ___ Code Blue ___ Other (describe below) Pastoral Care Referral From ___ Patient ___ Family ___ Nurse ___ Physician ___ Cigarette Machines Mechanic ___ Double Surface Operator _x__ Other (describe below) Sacrament/Intervention _x__ Active listening ___ Anointing ___ Synagogue ___ Bereavement ___ Communion ___ Nicole exploration ___ ___ Life review _x__ Prayer ___ Reconciliation ___ Sacrament of Sick _x__ Supportive presence ___ Wedding ___ Other (describe below) Pastoral Comments patient came in by squad from a ECF; pt has been in the hospital frequently in the last month and has been seen often by this in home nanny; pt is anxious as procedures, evaluations are conducted; calm presence, prayer, reminders of good care, help in refocusing all given for the patient by this in home nanny; spouse came to the ER and was greeted by this in home nanny; SW also present and active in giving care to pt and family
--- NOTE | 2024-12-15 13:55 | ED.RN ---
Critical PTT 222.[address] Weldon notified.
--- NOTE | 2024-12-15 14:35 | PCM.HP.STD ---
HPI - General General Date of Admission: 12/15/24 Date of Service: 12/15/24 Chief Complaint: Chest pain HPI Narrative GERRY GARCIA, is a 79-year-old male history of CKD, heart failure, coronary artery disease, COPD, recent STEMI after an in-stent thrombosis who presented [facility] ED 12/15/2024 for active chest pain. Reportedly he was at physical therapy and he started having tightness and pressure in the center of his chest, has been having this off and on over the past 2 weeks since he was discharged. Does have some shortness of breath. Was given nitro and aspirin by EMS with moderate help. Patient initially a STEMI alert however cardiology evaluated and did not feel that EKG changes were much different than last admission so STEMI alert canceled. In ED temp 97.6, heart rate 98, blood pressure 127/90, respiratory rate 24 pulse ox 98% on room air. CBC with white blood cell count 14.8, sodium 129, bicarb 18.4 with a gap of 19, BUN of 59 and a creatinine 2.9. glc 266. Trop 1137 and pro BNP 1961. Troponins elevated, patient with ongoing chest pain so cardiology recommended admission and trending troponins, they will be starting colchicine and will decide further on catheterization or further workup pending clinical progress. There is low suspicion for PE as he had recent VQ scan that was negative. Hospitalist contacted for admission. Patient evaluated with family members at bedside, he reports cough and shortness of breath with some intermittent nausea over the past 1 month since all this has been going on however this chest pain started today and is mild tightness and pressure in the center of his chest, reports the shortness of breath is not necessarily associated with the chest pain and is there most of the time, chest pain he does not think was helped with nitro or aspirin but felt like the morphine completely took it away, reports he thinks the morphine is wearing off now and his pain is a 2 or 3. Denies any leg swelling, reportedly the legs are actually less swollen than usual. [facility] Medical History Recent ST elevation myocardial infarction (STEMI) Chest pain History of acute inferior wall MA Acute ST elevation myocardial infarction (STEMI) of inferior wall Anxiety Depression Diabetes Kidney disease Former smoker Atrial fibrillation Myocardial infarct Coronary artery disease Hypertension TIA (transient ischemic attack) Anemia Shortness of breath Unstable angina Fatigue Syncope Left-sided weakness History of COVID-19 Presence of stent in coronary artery (~08/31/22) Dyslipidemia Diabetes mellitus Chronic kidney disease Coronary artery disease Angina pectoris Abnormal PFT Chest heaviness Palpitations DEAN (dyspnea on exertion) Dizziness Leg pain Cough Exposure to COVID-19 virus Nonhealing nonsurgical wound with fat layer exposed Laceration without foreign body of scalp, subsequent encounter Acute left-sided weakness Essential hypertension CHF (congestive heart failure) History of melanoma Obesity (BMI 35.0-39.9 without comorbidity) CAD (coronary artery disease) 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.9) COPD (chronic obstructive pulmonary disease) TIA (transient ischemic attack) Obstructive sleep apnea Atherosclerotic heart disease chilkoot coronary artery w/angina pectoris Type 2 diabetes mellitus without complications Hyperlipidemia Obesity Home Medications ?Medication ?Instructions ?Recorded ?Last Taken ?Type aspirin 81 mg tablet,delayed 81 mg PO DAILY@0800 health 01/21/17 10/11/23 History release maintenance mirtazapine 15 mg tablet (Remeron) 15 mg PO QHS sleep 09/21/18 10/11/23 History cyanocobalamin (vitamin B-12) 1,000 mcg PO DAILY vitamin ##0 06/01/19 10/11/23 History 1,000 mcg capsule magnesium oxide 400 mg (241.3 mg 800 mg PO DAILY SUPPLEMENT 08/01/21 10/11/23 History magnesium) tablet cholecalciferol (vitamin D3) [address] 09/16/21 10/11/23 History mcg (1,000 unit) tablet fluoxetine 40 mg capsule 80 mg PO DAILY DEPRESSION 90 days 09/16/21 10/11/23 History #180 caps acetaminophen 325 mg tablet 650 mg PO Q6H PRN Pain 1-02/0910/12/23 Unknown History atorvastatin 40 mg tablet 40 mg PO QHS CHOLESTEROL #90 tabs 06/14/24 Unknown Rx nitroglycerin 0.4 mg sublingual 0.4 mg sublingual Q5-15M PRN CHEST 06/14/24 Unknown Rx tablet PAIN #25 tabs pantoprazole 40 mg tablet,delayed 40 mg PO DAILY GERD #90 tabs 06/14/24 Unknown Rx release potassium chloride 20 mEq 60 meq (3 x 20 mEq) PO BID 06/14/24 Unknown Rx tablet,extended release(part/cryst) supplement #180 tabs amlodipine 5 mg tablet 5 mg PO QPM blood pressure 10/25/24 Unknown History metoprolol succinate 25 mg 25 mg PO DAILY blood pressure #30 10/25/24 Unknown Rx tablet,extended release 24 hr tabs ticagrelor 90 mg tablet (Brilinta) 90 mg PO BID #60 tabs 12/02/24 Unknown Rx empagliflozin 10 mg tablet 10 mg PO DAILY #90 tabs 12/06/24 Unknown Rx (Jardiance) furosemide 40 mg tablet 40 mg PO DAILY #90 tabs 12/06/24 Unknown Rx insulin lispro 100 unit/mL See Protocol subcut ACHS #0 mL 12/06/24 Unknown Rx subcutaneous pen (Humalog KwikPen (U-100) Insulin) ranolazine 500 mg tablet,extended 500 mg PO BID #180 tabs 12/06/24 Unknown Rx release,12 hr spironolactone 25 mg tablet 25 mg PO DAILY #90 tabs 12/06/24 Unknown Rx cetirizine 10 mg tablet 10 mg PO DAILY Allergic Reaction 12/12/24 Unknown History metolazone 2.5 mg tablet 2.5 mg PO .PRN diuretic 12/12/24 Unknown History Allergy/AdvReac Type Severity Reaction Status Date / Time No Known Allergies Allergy Verified 12/12/24 10:23 Family History Father Parkinsons disease Prostate cancer Mother Osteoporosis Surgical History Presence of coronary angioplasty implant and graft (11/27/24) History of tympanostomy tube placement History of percutaneous transluminal coronary angioplasty (08/18/18) History of herniorrhaphy Hx of cholecystectomy History of tonsillectomy History of prostatectomy Social History household members: spouse and none housing: half-way Smoking Status: Former smoker quit date: 05/03/98 pack-years: 50 how long ago did patient quit smokin years ago alcohol intake: never substance use type: does not use caffeine: Yes Type: coffee and tea Number of servings: 6 ROS ROS Narrative General: Denies fever/chills HENT: Denies headache EYES: Denies changes in vision Resp: Dry cough and increased shortness of breath over the past month Cardiac: Center of his chest intermittent tightness and pressure GI: Denies abdominal pain, intermittent nausea : Had 1 episode recently where the color of his urine was different than usual, he felt last night like he had a little bit of a harder time emptying his bladder but feels that is since resolved Extremity: Improved swelling MSK: Denies weakness Neuro: Denies any numbness/tingling Heme: Easy bleeding and bruising Skin: Denies rashes Psychiatric: No complaints voiced Vital Signs Vital Signs Vital Signs: 12/15/24 11:57 12/15/24 11:57 12/15/24 12:11 Temperature 97.6 F L Temperature Source Temporal Pulse Rate 98 Respiratory Rate 24 H Respiratory Effort Normal Non-Labored Blood Pressure 127/90 H Blood Pressure Mean 102 Pulse Ox 98 Oxygen Delivery Method Room Air 12/15/24 12:57 12/15/24 13:52 12/15/24 14:00 Temperature 97.8 F Temperature Source Pulse Rate 72 72 76 Respiratory Rate 14 14 18 Respiratory Effort Blood Pressure 109/82 H 109/82 H 110/82 H Blood Pressure Mean 91 91 91 Pulse Ox 95 95 96 Oxygen Delivery Method Room Air Weight Weight: 99.1 kg Body Mass Index (BMI) 32.2 Physical Exam Narrative General: Alert, oriented, no apparent distress HEENT: Atraumatic, normocephalic Eyes: Anicteric, normal conjunctiva, extraocular movements grossly intact Neck: Supple Respiratory: No overt wheezes or rhonchi, no significant respiratory distress Cardiovascular: Regular rate and rhythm GI: Somewhat firm but nontender Extremities: No edema Musculoskeletal: Moving all extremities Neuro: No overt focal neurological deficits Skin: Some scattered bruising Psych: Cooperative Results Lab / Micro Data 12/15/24 12:25 12/15/24 12:25 Labs: Laboratory Results - last 24 hr 12/15/24 12:25: WBC 14.8 H, RBC 4.72, Hgb 13.7, Hct 40.2, MCV 85.2, MCH 29.0, MCHC 34.1, RDW Std Deviation 41.6, RDW Coeff of Adrian 13.4, Plt Count 242, MPV 13.4 H, Immature Gran % (Auto) 0.800, Neut % (Auto) 79.3 H, Lymph % (Auto) 9.7 L, Barry % (Auto) 9.9, Eos % (Auto) 0.1, Baso % (Auto) 0.2, Absolute Neuts (auto) 11.7 H, Absolute Lymphs (auto) 1.43, Nucleated RBC % 0, PT 16.8 H, INR 1.3, APTT 222.8 H*, Sodium 129 L, Potassium 4.5, Chloride 91 L, Carbon Dioxide 18.4 L, Anion Gap 19 H, BUN 59 H, Creatinine 2.90 H, Estim Creat Clear Calc 23.97 L, Est GFR (MDRD) Non-Af 21 L, BUN/Creatinine Ratio 20.4 H, Glucose 266 H, Calcium 9.5, Troponin T High Sens 1137 H* D, NT pro BNP II 1961 H Rhythm Strip Rhythm Strip: Sinus Rhythm Imaging Radiology Impression Chest X-Ray 12/15/24 13:10 IMPRESSION: Hyperinflation. No acute abnormality is seen. Reading Location: [facility] Assessment & Plan Assessment/Plan (1) Chest pain: PLAN: Plan #Recurrent chest pain and elevated trop - Patient with history of coronary artery disease with recent stent and subsequent in-stent thrombosis for which she was taken back to the [facility] - He was subsequently discharged but readmitted again as a STEMI alert however heart cath at that time showed no acute process -Trop initially 1137, though this is down from 12/07 when his troponin was 7100, will trend - Cardiology on consult - Operating Room Tech examined patient's EKG, looks similar to previous send not taken emergently to [facility] - There is concern that he could have Ric syndrome as he has a small pericardial effusion there is theoretically the risk of post MA pericarditis, cardiology to initiate colchicine -NSAIDs to be avoided given his CKD -Continue beta-jeffrey and Ranexa #SOB and hx COPD - Patient follows with the pulmonary office and has a history of COPD, according to their note last month he supposed to be on Arnuity 200 mcg 1 inhalation daily which is fluticasone, do not see this on his med list, if he is not getting his inhaler this may be in part why his shortness of breath has been worse over this past month -Will start patient on fluticasone inhaler here, if this helps symptoms he will need to work on getting back on inhalers and outpatient to help with symptoms and functional status # Chronic heart failure with combined systolic and diastolic dysfunction - LVEF 45% and patient has history of diastolic dysfunction - Continue patient's current medical therapy - Daily weights - I's and O's - Heart healthy diet, fluid restriction -Continuing patient's Lasix, is documented that he is on Lasix, spironolactone, and 60 mill equivalents of potassium twice daily which seems quite high given he is also on Aldactone and has this level of kidney dysfunction, will decrease to 30 twice daily, can go back up if this is necessary but will err on the side of caution #MATTHEW -Continue home NIPPV if applicable -AHI 64.7 with mixed apnea # CKD stage IV - Vacillates widely but overall appears to be at baseline -Avoid nephrotoxic agents -Daily BMPs # Hyponatremia - Has vacillated, 12/12 was 128 and subsequently 130, today 129 - Repeat in a.m., if further downtrends may need to consider further workup and management - Presently seems to be asymptomatic #Depression/anxiety -Continue home medications #GERD -Continue PPI #DVT ppx: Lovenox subcu Ramonita Herron MD Time spent in the patient's overall evaluation, decision-making process, review of diagnostic data, adjustment of management, discussion with other providers, nursing and ancillary staff involved in patient's care documentation, 78 Minutes Charges/Coding Visit Charges Inpatient E&M: 52696 Init Hosp L3
[2024-12-15 17:19] LABS: Troponin T High Sens 2 HR 1199 ng/L (<=22)
[2024-12-15] MEDS: Albuterol 2.5 MG/3 ML VIAL.NEB. INHALATION (19:31)
[2024-12-15] MEDS: Budesonide Respules 0.5 MG/2 ML AMPUL.NEB. INHALATION (19:31)
[2024-12-15 20:20] LABS: Troponin T High Sens 4 HR 1115 ng/L (<=22)
[2024-12-15] MEDS: Potassium Chloride Oral Tablet 10 MEQ 30 MEQ PO (21:00)
[2024-12-15] MEDS: TICAGRELOR 90 MG TABLET PO (21:01)
[2024-12-16] VITALS (8 sets, daily range): BP systolic 116–166; BP diastolic 60–93; PULSE 60–80; RESP 16–18; TEMP 36.2–36.8; O2SAT 96–99; BMI 31.4
[2024-12-16 08:01] LABS: Hematocrit 40.1 % (40-54); Hemoglobin 13.3 g/dL (13.0-16.5); Immature Granulocytes Count 0.070 X10^3/uL (0.0-0.0); Mean Corp Hgb Conc 33.2 g/dL (32-36); Mean Corpuscular Volume 86.2 fL (80-94); Mean Platelet Vol. 13.2 fl (6.2-12.0); NRBC Flagged by Analyzer 0 % (0-5); Platelet Count 181 K/mm3 (150-450); RBC Distribution Width CV 13.4 % (11.6-14.6); RBC Distribution Width SD 42.2 fl (35.1-43.9); Red Blood Count 4.65 M/mm3 (4.6-6.2); White Blood Count 8.7 K/mm3 (4.4-11.0)
[2024-12-16 09:03] LABS: Anion Gap 18 (5-15); BUN 58 mg/dL (4-19); BUN/Creat Ratio 21.8 RATIO (10-20); Calcium,Total 9.3 mg/dL (7.6-11.0); Carbon Dioxide 19.2 mmol/L (21.0-32.0); Chloride 93 mmol/L (98-108); Estimated Creatinine Clearance 25.90 ml/min (50-250); Glucose 182 mg/dL (70-99); Potassium 3.8 mmol/L (3.3-5.1)
[2024-12-16] MEDS: Budesonide Respules 0.5 MG/2 ML AMPUL.NEB. INHALATION (09:04)
[2024-12-16] MEDS: Aspirin E.C. 81 MG Tablet PO (10:32)
[2024-12-16] MEDS: Magnesium Chloride 64 MG Delay Rel.Tablet 128 MG PO (10:33)
[2024-12-16] MEDS: Potassium Chloride Oral Tablet 10 MEQ 30 MEQ PO ×2 (10:33→21:00)
[2024-12-16] MEDS: TICAGRELOR 90 MG TABLET PO ×2 (10:34→21:00)
[2024-12-16] MEDS: Metoprolol(XL)Succ 25 MG Tablet PO (10:35)
--- NOTE | 2024-12-16 11:41 | CASEMGMT ---
Addendum entered by Lynne Martinez 12/16/24 13:13: Social Work Pt is able to return to [facility] when medically ready. Physician notified. Green sheet on chart to facilitate a weekend discharge. Plan: Return to [place], when medically ready ALISSON Lama Original Note: Social Work Pt admitted from [facility], skilled level of care. SALOMON met with pt and dgt who confirm plan to return to [place] at time of discharge. Clinicals sent to [place] via [facility]. left with [facility] nursing unit to see if pt can return over the weekend. SALOMON will await return call from [place]. ALISSON Reyes
--- NOTE | 2024-12-16 11:54 | PCM.PN.BLA ---
Progress Note He states that his breathing and chest pain improved a lot. Physical Exam Const alert and oriented x3 HEENT normocephalic Eyes PERRL General Eye: normal appearance of both eyes Neck full ROM Chest inspection of chest normal Resp normal respiratory effort Cardio regular rate, regular rhythm, S1 normal heart sound and S2 normal heart sound Cardio Narrative: +ve pericardial rub Jugular Venous Distention: Negative for JVD GI normal to inspection, nondistended, normoactive bowel sounds no CVA tenderness Assessment & Plan Assessment/Plan (1) Chest pain: PLAN: # Concerning however by comparing the EKGs over the last 1 month with multiple ER visits and elevated high-sensitivity troponin with RCA stent thrombosis, his inferior Q waves and persistent ST segment elevation of at least 1 mm appears to be stable and the same. His high-sensitivity troponin is showing a downtrend of 1100 compared to his previous troponin over 7000 a week ago. His last cardiac catheterization on December 02, 2024 demonstrated patent stent in the RCA. There is a small pericardial effusion that may raise the possibility of post TN pericarditis and may explain some of his recurrent chest pain syndrome. # Continue with Colchicine cautiously as we are trying to avoid NSAIDs here specially with his renal insufficiency and being on dual antiplatelet therapy. # Will continue the dual antiplatelet therapy previously prescribed and may continue with long-term as a mono antiplatelet therapy with ticagrelor due to multiple layers of stents in the RCA with previous stent thrombosis and extensive 360 degree of calcifications underneath the stents that limited the percutaneous options. Previous shockwave lithotripsy was utilized. # The family as well as the patient are very comfortable with the above plan but may change strategy and proceed with an invasive revisualization of the right coronary artery if troponin enzymes starts increasing. Or chest pain recurs in the future. # His chest pain is much improved, he can be discharged today. (2) Pericardial effusion: PLAN: Small and may be reactive for which we will try short course of colchicine and PPI (3) Essential hypertension: PLAN: Controlled (4) CKD (chronic kidney disease) stage 4, GFR 15-29 ml/min: PLAN: Will avoid NSAIDs at this time and try to limit the contrast related studies to the minimum and absolutely needed (5) Central sleep apnea: PLAN: Continue CPAP (6) Diastolic heart failure: QUALIFIERS: Heart failure chronicity: chronic Qualified Code(s): I50.32 - Chronic diastolic (congestive) heart failure PLAN: At the present time he has combined systolic and diastolic dysfunction LVEF 45%, appears euvolemic and in no acute volume overload status, continue the current medical therapy previously prescribed for the above moderate LV systolic dysfunction. He is on BB, Aldactone and SGLT2i. Not on ACEi in the setting of CKD4. Ideally he needs to be started on ACEi in the setting of hypertension, diabetes, CKD and reduced EF.
[2024-12-16] MEDS: Glucerna Shake 120 ML LIQUID PO (18:06)
--- NOTE | 2024-12-16 18:43 | PN.HOSP_ITS ---
Reason for Visit Chief Complaint: Chest pain Subjective Subjective Patient was seen and examined today, he had nausea and vomiting today and I elected to have him remain in the hospital for now and reevaluate him tomorrow for possible discharge to his senior care. Objective Data Objective Data Vital Signs: Vital Signs Temp Pulse Resp BP Pulse Ox O2 Del Method FiO2 97.9 F 73 18 116/75 99 Room Air 21 12/16/24 16:31 12/16/24 16:31 12/16/24 16:31 12/16/24 16:31 12/16/24 16:31 12/16/24 16:31 12/16/24 02:36 Oxygen Delivery Method Room Air Weight: 96.5 kg Body Mass Index (BMI) 31.4 Intake & Output: Intake and Output for Last 24 Hours 12/14/24 12/15/24 12/16/24 23:59 23:59 23:59 Intake Total 520 / 520 540 / 540 Output Total 1220 / 1220 1150 / 1150 Balance -700 / -700 -610 / -610 Medical Nutrition Assessment Dietitian: Malnutrition Criteria Met Start: 12/16/24 12:16 Freq: Status: Active Protocol: Document 12/16/24 12:16 MIKE (Rec: 12/16/24 12:16 SLA [id number]) Nutrition Malnutrition Evidence of Yes Malnutrition Exists Malnutrition (severe Acute Illness/Injury ): Evidenced By Suboptimal Energy Intake (Severe),Weight Loss (Severe) Clinical Problem Acute Disease or Injury Related Malnutrition Etiology related to recent heart attack, loss of appetite d/t food doesn't taste good, and inadequate energy intake Signs/Symptoms as evidenced by po intake meeting < 75% of est nutritional needs and ~ 13% 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 Lab / Micro Data 12/16/24 07:21 12/16/24 07:21 Labs: Laboratory Results - last 24 hr 12/15/24 18:08: Troponin T Hi Sens 4Hr 1115 H* 12/15/24 20:58: POC Glucose 192 H 12/16/24 06:34: POC Glucose 169 H 12/16/24 07:21: WBC 8.7, RBC 4.65, Hgb 13.3, Hct 40.1, MCV 86.2, MCH 28.6, MCHC 33.2, RDW Std Deviation 42.2, RDW Coeff of Adrian 13.4, Plt Count 181, MPV 13.2 H, Immature Gran % (Auto) 0.800, Neut % (Auto) 75.7 H, Lymph % (Auto) 10.7 L, [place] % (Auto) 12.1 H, Eos % (Auto) 0.5, Baso % (Auto) 0.2, Absolute Neuts (auto) 6.6, Absolute Lymphs (auto) 0.93, Nucleated RBC % 0, Sodium 131 L, Potassium 3.8, C hloride 93 L, Carbon Dioxide 19.2 L, Anion Gap 18 H, BUN 58 H, Creatinine 2.65 H , Estim Creat Clear Calc 25.90 L, Est GFR (MDRD) Non-Af 24 L, BUN/Creatinine Ratio 21.8 H, Glucose 182 H, Calcium 9.3 12/16/24 11:24: POC Glucose 237 H 12/16/24 16:26: POC Glucose 152 H Rhythm Strip Rhythm Strip: Sinus Rhythm Physical Exam Const alert, oriented x3 and no apparent distress General Appearance: cooperative, well kempt and well developed Orientation / Consciousness: awake, oriented to person, oriented to place and oriented to time HEENT normocephalic, head/scalp atraumatic and moist oral mucous membranes Eyes PERRL, EOMs intact bilaterally and conjunctivae normal Neck supple, no JVD, thyroid normal and no carotid bruits General: trachea midline Resp normal respiratory effort, no retractions, no use of accessory muscles and clear to auscultation bilaterally Auscultation: Negative for rales, rhonchi or wheezes Cardio regular rate, regular rhythm, S1 normal heart sound, S2 normal heart sound, no murmurs, no rub and no gallops GI normal to inspection, nondistended, normoactive bowel sounds, soft to palpation, non-tender and non-distended Extremity no clubbing, cyanosis or edema Skin no rashes or lesions noted General Skin Exam: no breakdown Neuro oriented x3, CN's II-XII intact bilaterally, no focal motor deficits and no sensory deficits noted Sensorium / Orientation: awake and alert Speech: speech normal Psych affect normal Assessment & Plan Assessment/Plan (1) Chest pain: PLAN: Plan 1. Pericarditis-continue colchicine x 3 months, continue beta-jeffrey, statin, Brilinta, aspirin and Ranexa #2 coronary artery disease-continue present medications #3 chronic kidney disease stage IV-complicates care, management, recovery, and prognosis, labs will be monitored as necessary #4 type 2 diabetes-blood sugars will be monitored, sliding scale insulin will be administered as needed #5 hyponatremia-BMP will be monitored as necessary #6 intermittent nausea and vomiting-etiology unclear at this point, patient has no difficulty swallowing, the nausea/vomiting is transient and sometimes consist of dry heaves, patient will be given antiemetics as needed #7 chronic depression-patient is on Prozac and Remeron #8 generalized weakness secondary to multiple medical problems-patient will return to his long term facility when medically stable Total clinical time spent by myself addressing the patient's medical issues, reviewing all of his data, and collaborating patient's care team: 35 minutes Charges/Coding Visit Charges Inpatient E&M: 26632 Subs Hosp L2
[2024-12-16] MEDS: 0.9% Saline Lock 10 ML Syringe IV (21:06)
[2024-12-17 03:56] VITALS: BP 112/78; PULSE 67; RESP 18; TEMP 36.2; O2SAT 97
[2024-12-17 05:06] VITALS: BMI 31.3
[2024-12-17 08:50] VITALS: O2SAT 98
[2024-12-17 10:36] VITALS: BP 125/84; PULSE 75; RESP 18; TEMP 36.9; O2SAT 99
[2024-12-17] MEDS: Potassium Chloride Oral Tablet 10 MEQ 30 MEQ PO (10:36)
[2024-12-17] MEDS: Magnesium Chloride 64 MG Delay Rel.Tablet 128 MG PO (10:37)
[2024-12-17 10:38] VITALS: PULSE 75
[2024-12-17] MEDS: TICAGRELOR 90 MG TABLET PO (10:38)
[2024-12-17] MEDS: Metoprolol(XL)Succ 25 MG Tablet PO (10:38)
[2024-12-17] MEDS: Aspirin E.C. 81 MG Tablet PO (10:38)
--- NOTE | 2024-12-17 13:28 | TREXTCAR_ITS ---
Diet Diet Order/Speech Therapy: INPATIENT Hospital Diet / Speech Therapy Order(s) 12/16/24 12:16 Diet: Regular - General Type of Dietary Supplement:: Magic Cup Dessert Fluid restriction:: 1750 mL Routine Orders/Code Status Routine Lab Work: BMP (in 5 days) and - (Fingerstick blood sugars 3 times daily AC-Humalog subcu per sliding scale: 200-250: 5 units, 251-300: 8 units, 301-350: 12 units) Code Status: Full Code DC O2, CPAP, BIPAP needs Home O2 Discharge instructions: No Wound(s) left forearm: Wound Type: Skin Tear Therapies Weight Bearing: Full weight bearing Physical Therapy: Eval and Treat Occupational Therapy: Eval and Treat Problem/Diagnosis (1) Chest pain: Status: Acute Code(s): R07.9 - Chest pain, unspecified (2) Pericardial effusion: Status: Acute Code(s): I31.39 - Other pericardial effusion (noninflammatory) (3) Essential hypertension: Status: Chronic Code(s): I10 - Essential (primary) hypertension (4) CKD (chronic kidney disease) stage 4, GFR 15-29 ml/min: Status: Chronic Code(s): N18.4 - Chronic kidney disease, stage 4 (severe) (5) Central sleep apnea: Status: Acute Code(s): G47.31 - Primary central sleep apnea (6) Diastolic heart failure: Status: Chronic Code(s): I50.30 - Unspecified diastolic (congestive) heart failure Plan 1. Pericarditis-continue colchicine x 3 months, continue beta-jeffrey, statin, Brilinta, aspirin #2 coronary artery disease-continue present medications #3 chronic kidney disease stage IV-complicates care, management, recovery, and prognosis, labs will be monitored as necessary #4 type 2 diabetes-blood sugars will be monitored, sliding scale insulin will be administered as needed #5 hyponatremia-BMP will be monitored as necessary #6 intermittent nausea and vomiting-etiology unclear at this point, patient has no difficulty swallowing, the nausea/vomiting is transient and sometimes consist of dry heaves, patient will be given antiemetics as needed #7 chronic depression-patient is on Prozac and Remeron #8 generalized weakness secondary to multiple medical problems-patient will return to his correction facility when medically stable #9 acute protein and caloric malnutrition-related to recent myocardial infarction, loss of appetite due to taste disturbances, and inadequate energy intake as evidenced by p.o. intake meeting less than 75% of estimated nutritional needs and approximately 13% unintended weight loss times less than a month-diet is liberalized to regular, Magic cup with meals for increased nutritional intake, Glucerna shake with med Pass for increased nutrition if consumed Allergies/Procedures Done in Hospital Allergies No Known Allergies Allergy (Verified 12/12/24 10:23) Type of Care/Length of Stay Estimated LOS: Convalescent Care Less Than 30 days Type of Care Needed: Skilled Rehab Potential: Good Prognosis: Good Additional Orders/Day of Discharge H&P will serve as current which was dated: 12/15/24 Day of Discharge: 12/17/24 Dietary and Speech Recommendations Dietitian Recommendations/Changes: Will liberalize diet to Regular d/t signs and symptoms of malnutrition - rec liberalize FR as medically able Will order magic cup w/ meals for increased nutrition if consumed Will order glucerna shake w/ medpass for increased nutrition if consumed Continue to follow and monitor for changes in pt nutritional status and make additional rec as indicated. Discharge Plan Admission Admit Date/Time: 12/15/24 14:35 Primary Reason for Your Visit: Chest pain due to pericarditis Attending Provider: Victor M Marlow Primary Care Provider: Victor M Luke Consulting Providers: Sunil Faye; Ramonita Herron Discharge Orders/Prescriptions Prescriptions: New colchicine 0.6 mg Capsule 0.6 mg PO BID 90 Days Qty: 0 0RF Rx Instructions: Take for a total of 90 days then discontinue potassium chloride 10 mEq Tablet,Er Particles/Crystals 30 meq PO BID Qty: 0 0RF Glucerna 1.2 Ashwin 0.06-1.2 gram-kcal/mL Liquid 120 ml PO 4X/DAY Qty: 0 0RF promethazine 12.5 mg tablet 12.5 mg PO Q6H PRN (Reason: nausea and vomiting) Qty: 1 0RF Continued fluoxetine 40 mg capsule 80 mg PO DAILY 90 Days Qty: 180 magnesium oxide 400 mg (241.3 mg magnesium) tablet 800 mg PO DAILY cholecalciferol (vitamin D3) 25 mcg (1,000 unit) tablet 25 mcg PO DAILY cetirizine 10 mg tablet 10 mg PO DAILY amlodipine 5 mg tablet 5 mg PO QPM metoprolol succinate 25 mg tablet extended release 24 hr 25 mg PO DAILY Qty: 30 11RF aspirin 81 MG tablet 81 mg PO DAILY@0800 cyanocobalamin (vitamin B-12) 1,000 MCG capsule 1,000 mcg PO DAILY Qty: 0 acetaminophen 325 MG tablet 650 mg PO Q6H PRN (Reason: Pain 1-02/09) ticagrelor [Brilinta] 90 mg Tablet 90 mg PO BID Qty: 60 11RF furosemide 40 mg Tablet 40 mg PO DAILY Qty: 90 0RF spironolactone 25 mg Tablet 25 mg PO DAILY Qty: 90 0RF Jardiance 10 mg Tablet 10 mg PO DAILY Qty: 90 0RF mirtazapine [Remeron] 15 mg tablet 15 mg PO QHS nitroglycerin 0.4 mg tablet, sublingual 0.4 mg SUBLINGUAL Q5-15M PRN (Reason: CHEST PAIN) Qty: 25 3RF atorvastatin 40 mg tablet 40 mg PO QHS Qty: 90 3RF pantoprazole 40 mg tablet,delayed release (DR/EC) 40 mg PO DAILY Qty: 90 3RF Discontinued insulin lispro [Humalog KwikPen Insulin] 100 unit/mL Insulin Pen See Protocol subcut ACHS Qty: 0 0RF Protocol: 3. Sliding Scale Insulin Med Dosing Condition: 150-189 mg/dl = 1 unit Condition: 190-229 mg/dl = 2 units Condition: 230-269 mg/dl = 3 units Condition: 270-309 mg/dl = 4 units Condition: 310-349 mg/dl = 5 units Condition: 350-399 mg/dl = 6 units Condition: 400-449 mg/dl = 7 units Condition: Greater than 449 call physician Protocol Text: Suggested for: - Patients on Total Daily Insulin Dose of 37-55 units - Obese, infected, or steroid patients MEDIUM DOSING ALGORITHIM ranolazine 500 mg Tablet Extended Release 12 Hr 500 mg PO BID Qty: 180 0RF metolazone 2.5 mg tablet 2.5 mg PO .PRN No Action potassium chloride 20 mEq tablet,ER particles/crystals 60 meq PO BID Qty: 180 3RF Referrals / Follow Up: Victor M Luke DO [Primary Care Provider] - Gustabo Pérez NP, [employer] MANAGER-C [Med Staff - Adv Practice Prof] - See Referral Note (In 3 to 4 weeks) Disposition Disposition (needs filled in before D/C Order can be placed): Detention Facility (6) Diastolic heart failure Qualifiers: Heart failure chronicity: chronic Qualified Code(s): I50.32 - Chronic diastolic (congestive) heart failure
--- NOTE | 2024-12-17 14:06 | DS.PCM_ITS ---
Providers Date of Admission: 12/15/24 Date of Discharge: 12/17/24 Primary Care Physician: Dr. Victor M Luke, Consultations 12/15/24 15:37 Consult: Cardiology Routine Consulting Provider: Sunil Faye Reason for Consult: Chest Pain EMERGENT Consult: No MD Notified: Yes Date Notified: 12/15/24 Time Notified: 15:09 Method of Notification: ED Physician Initiated Reason For Visit: chest pain Diagnosis Discharge Diagnosis (1) Chest pain: Status: Inactive Code(s): R07.9 - Chest pain, unspecified (2) Pericardial effusion: Status: Inactive Code(s): I31.39 - Other pericardial effusion (noninflammatory) (3) Essential hypertension: Status: Inactive Code(s): I10 - Essential (primary) hypertension (4) CKD (chronic kidney disease) stage 4, GFR 15-29 ml/min: Status: Inactive Code(s): N18.4 - Chronic kidney disease, stage 4 (severe) (5) Central sleep apnea: Status: Inactive Code(s): G47.31 - Primary central sleep apnea (6) Diastolic heart failure: Status: Inactive Code(s): I50.30 - Unspecified diastolic (congestive) heart failure Qualifiers: Heart failure chronicity: chronic Qualified Code(s): I50.32 - Chronic diastolic (congestive) heart failure Plan 1. Pericarditis-continue colchicine x 3 months, continue beta-jeffrey, statin, Brilinta, aspirin #2 coronary artery disease-continue present medications #3 chronic kidney disease stage IV-complicates care, management, recovery, and prognosis, labs will be monitored as necessary #4 type 2 diabetes-blood sugars will be monitored, sliding scale insulin will be administered as needed #5 hyponatremia-BMP will be monitored as necessary #6 intermittent nausea and vomiting-etiology unclear at this point, patient has no difficulty swallowing, the nausea/vomiting is transient and sometimes consist of dry heaves, patient will be given antiemetics as needed #7 chronic depression-patient is on Prozac and Remeron #8 generalized weakness secondary to multiple medical problems-patient will return to his alf facility when medically stable #9 acute protein and caloric malnutrition-related to recent myocardial infarction, loss of appetite due to taste disturbances, and inadequate energy intake as evidenced by p.o. intake meeting less than 75% of estimated nutritional needs and approximately 13% unintended weight loss times less than a month-diet is liberalized to regular, Magic cup with meals for increased nutritional intake, Glucerna shake with med Pass for increased nutrition if consumed Medications at Discharge Home Medications aspirin 81 mg tablet,delayed release 81 mg PO DAILY@0800 health maintenance 01/21/17 mirtazapine 15 mg tablet (Remeron) 15 mg PO QHS sleep 09/21/18 cyanocobalamin (vitamin B-12) 1,000 mcg capsule 1,000 mcg PO DAILY vitamin ##0 06/01/19 magnesium oxide 400 mg (241.3 mg magnesium) tablet 800 mg PO DAILY SUPPLEMENT 08/01/21 cholecalciferol (vitamin D3) 25 mcg (1,000 unit) tablet [address] 09/16/21 fluoxetine 40 mg capsule 80 mg PO DAILY DEPRESSION 90 days #180 caps 09/16/21 acetaminophen 325 mg tablet 650 mg PO Q6H PRN Pain 1-02/0910/12/23 atorvastatin 40 mg tablet 40 mg PO QHS CHOLESTEROL #90 tabs 06/14/24 nitroglycerin 0.4 mg sublingual tablet 0.4 mg sublingual Q5-15M PRN CHEST PAIN #25 tabs 06/14/24 pantoprazole 40 mg tablet,delayed release 40 mg PO DAILY GERD #90 tabs 06/14/24 potassium chloride 20 mEq tablet,extended release(part/cryst) 60 meq (3 x 20 mEq) PO BID supplement #180 tabs 06/14/24 amlodipine 5 mg tablet 5 mg PO QPM blood pressure 10/25/24 metoprolol succinate 25 mg tablet,extended release 24 hr 25 mg PO DAILY blood pressure #30 tabs 10/25/24 ticagrelor 90 mg tablet (Brilinta) 90 mg PO BID #60 tabs 12/02/24 empagliflozin 10 mg tablet (Jardiance) 10 mg PO DAILY #90 tabs 12/06/24 furosemide 40 mg tablet 40 mg PO DAILY #90 tabs 12/06/24 spironolactone 25 mg tablet 25 mg PO DAILY #90 tabs 12/06/24 cetirizine 10 mg tablet 10 mg PO DAILY Allergic Reaction 12/12/24 colchicine 0.6 mg capsule 0.6 mg PO BID 90 days #0 caps 12/17/24 nutrition tx glu intol,lac-free,soy-fiber 0.06 gram-1.2 kcal/mL liquid (Glucerna 1.2 Ashwin) 120 ml PO 4X/DAY #0 mL 12/17/24 potassium chloride 10 mEq tablet,extended release(part/cryst) 30 meq (3 x 10 mEq) PO BID #0 tabs 12/17/24 promethazine 12.5 mg tablet 12.5 mg PO Q6H PRN nausea and vomiting #1 TAB 12/17/24 Hospital Course Operations None Procedures 2-D Echocardiogram Summary of Care Provided Minutes Spent on Discharge: 31 Hospital Course: 79-year-old white male seen in the emergency room at [facility] after being transferred from a skilled facility where he was undergoing skilled care due to chest pain, he reported the chest pain to be intermittent in nature- patient had a cardiac stent placed 2 weeks prior. Patient denied any shortness of breath, he stated the chest pain was left-sided in nature and was sharp. Labs obtained in the ER showed an elevated white blood cell count of 14.8, troponin was elevated at 1137, beta nitric peptide was elevated at 1961. Chemistry profile showed a low sodium at 129, patient's creatinine was elevated at 2.9 and glucose was 266. Chest x-ray showed hyperinflation with no acute abnormality, EKG showed a sinus rhythm with ST elevation in lead III which was similar to a previous EKG on 12/07/2024. There was noted however to be slightly more elevation in lead II and V6 compared with his previous EKG, due to this a STEMI alert was activated, the patient was seen by cardiology and an echocardiogram was obtained, echocardiogram showed a small pericardial effusion and it was felt that the patient had post MD pericarditis, he was placed on colchicine, nonsteroidal anti-inflammatories were not administered due to the patient's renal insufficiency and the fact the patient was on dual antiplatelet therapy. Patient was admitted to PCU, during the patient's hospital stay he had intermittent nausea and vomiting-consisting mostly of dry heaves. The etiology for this was unknown. Patient was seen by PT and OT, eventually patient was felt to be stable for transfer back to a skilled facility for continued skilled therapy. On 12/17/2024, patient was seen and examined: On examination he appeared in good health and spirits. Vital signs as documented. Skin warm and dry and without overt rashes. Neck without JVD, neck was supple, trachea midline, thyroid was normal. Lungs clear bilaterally, normal air movement was noted. Heart exam notable for regular rhythm, normal sounds and absence of murmurs, rubs or gallops. Abdomen unremarkable and without evidence of organomegaly, masses, or abdominal aortic enlargement. Bowel sounds are present, abdomen is not distended. Extremities nonedematous, no cyanosis was noted, no clubbing was noted. Neuro: Cranial nerves II through XII are grossly intact, no focal motor deficits were noted, sensation to light touch and pinprick intact, motor exam 5/5 throughout. Psych: Patient is alert and oriented x3, he does not appear anxious or depressed, he does not appear agitated. Patient was felt to be stable for return to skilled facility on 12/17/2024. Medical Records Data Medical Nutrition Assessment Dietitian: Malnutrition Criteria Met Start: 12/16/24 12:16 Freq: Status: Active Protocol: Document 12/16/24 12:16 [facility] (Rec: 12/16/24 12:16 [facility] [id number]) Nutrition Malnutrition Evidence of Yes Malnutrition Exists Malnutrition (severe Acute Illness/Injury ): Evidenced By Suboptimal Energy Intake (Severe),Weight Loss (Severe) Clinical Problem Acute Disease or Injury Related Malnutrition Etiology related to recent heart attack, loss of appetite d/t food doesn't taste good, and inadequate energy intake Signs/Symptoms as evidenced by po intake meeting < 75% of est nutritional needs and ~ 13% unintended wt loss 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 Weight / BMI Weight Weight: 96.2 kg Body Mass Index (BMI) 31.3 ABG / Lab / Microbiology Data 12/16/24 07:21 12/16/24 07:21 Laboratory: Laboratory Results - last 24 hr 12/16/24 11:24: POC Glucose 237 H 12/16/24 16:26: POC Glucose 152 H 12/16/24 20:57: POC Glucose 215 H 12/17/24 06:28: POC Glucose 178 H 12/17/24 11:17: POC Glucose 253 H D/C Instructions DC O2, CPAP, BIPAP Needs Home O2 Discharge instructions: No Meaningful Use Info Meaningful Use Meaningful Use Diagnoses (Choose all that apply): None applicable Discharge Plan Admission Admit Date/Time: 12/15/24 14:35 Primary Reason for Your Visit: Chest pain due to pericarditis Attending Provider: Victor M Marlow Primary Care Provider: Victor M Luke Consulting Providers: Sunil Faye; Ramonita Herron Discharge Orders/Prescriptions Prescriptions: New colchicine 0.6 mg Capsule 0.6 mg PO BID 90 Days Qty: 0 0RF Rx Instructions: Take for a total of 90 days then discontinue potassium chloride 10 mEq Tablet,Er Particles/Crystals 30 meq PO BID Qty: 0 0RF Glucerna 1.2 Ashwin 0.06-1.2 gram-kcal/mL Liquid 120 ml PO 4X/DAY Qty: 0 0RF promethazine 12.5 mg tablet 12.5 mg PO Q6H PRN (Reason: nausea and vomiting) Qty: 1 0RF Continued fluoxetine 40 mg capsule 80 mg PO DAILY 90 Days Qty: 180 magnesium oxide 400 mg (241.3 mg magnesium) tablet 800 mg PO DAILY cholecalciferol (vitamin D3) 25 mcg (1,000 unit) tablet 25 mcg PO DAILY cetirizine 10 mg tablet 10 mg PO DAILY amlodipine 5 mg tablet 5 mg PO QPM metoprolol succinate 25 mg tablet extended release 24 hr 25 mg PO DAILY Qty: 30 11RF aspirin 81 MG tablet 81 mg PO DAILY@0800 cyanocobalamin (vitamin B-12) 1,000 MCG capsule 1,000 mcg PO DAILY Qty: 0 acetaminophen 325 MG tablet 650 mg PO Q6H PRN (Reason: Pain -02/09) ticagrelor [Brilinta] 90 mg Tablet 90 mg PO BID Qty: 60 11RF furosemide 40 mg Tablet 40 mg PO DAILY Qty: 90 0RF spironolactone 25 mg Tablet 25 mg PO DAILY Qty: 90 0RF Jardiance 10 mg Tablet 10 mg PO DAILY Qty: 90 0RF mirtazapine [Remeron] 15 mg tablet 15 mg PO QHS nitroglycerin 0.4 mg tablet, sublingual 0.4 mg SUBLINGUAL Q5-15M PRN (Reason: CHEST PAIN) Qty: 25 3RF atorvastatin 40 mg tablet 40 mg PO QHS Qty: 90 3RF pantoprazole 40 mg tablet,delayed release (DR/EC) 40 mg PO DAILY Qty: 90 3RF Discontinued insulin lispro [Humalog KwikPen Insulin] 100 unit/mL Insulin Pen See Protocol subcut ACHS Qty: 0 0RF Protocol: 3. Sliding Scale Insulin Med Dosing Condition: 150-189 mg/dl = 1 unit Condition: 190-229 mg/dl = 2 units Condition: 230-269 mg/dl = 3 units Condition: 270-309 mg/dl = 4 units Condition: 310-349 mg/dl = 5 units Condition: 350-399 mg/dl = 6 units Condition: 400-449 mg/dl = 7 units Condition: Greater than 449 call physician Protocol Text: Suggested for: - Patients on Total Daily Insulin Dose of 37-55 units - Obese, infected, or steroid patients MEDIUM DOSING ALGORITHIM ranolazine 500 mg Tablet Extended Release 12 Hr 500 mg PO BID Qty: 180 0RF metolazone 2.5 mg tablet 2.5 mg PO .PRN No Action potassium chloride 20 mEq tablet,ER particles/crystals 60 meq PO BID Qty: 180 3RF Referrals / Follow Up: Victor M Luke DO [Primary Care Provider] - Gustabo Pérez NP, ENVIRONMENTAL [employer]UDIES FACULTY MEMBER-C [Med Staff - Adv Practice Prof] - See Referral Note (In 3 to 4 weeks) Disposition Disposition (needs filled in before D/C Order can be placed): [facility] Facility Charges/Coding Visit Charges Inpatient E&M: 69216 Disch Hosp >30min
[2024-12-17 15:10] VITALS: BP 100/82; PULSE 78; RESP 18; TEMP 36.6; O2SAT 99
--- NOTE | 2024-12-17 15:38 | NURSING ---
Report called to ALEX Alston at [facility]. Daughter and son in law transporting patient back to facility.
== END 2024-12-17 15:35 | DRG 314 ==
LOC: ED 13:37 → PCU 14:53
PROVIDERS: Admitting Provider Internal Medicine; Emergency Provider Student in an Organized Health Care Education/Training Program; PCP Family Medicine; Visit Provider Internal Medicine
DX: I31.39 Other pericardial effusion (noninflammatory) (principal); E43 Unspecified severe protein-calorie malnutrition; I13.0 Hypertensive heart and chronic kidney disease with heart failure and stage 1 through stage 4 chronic kidney disease, or unspecified chronic kidney disease; N18.4 Chronic kidney disease, stage 4 (severe); E87.1 Hypo-osmolality and hyponatremia; I50.42 Chronic combined systolic (congestive) and diastolic (congestive) heart failure; E11.22 Type 2 diabetes mellitus with diabetic chronic kidney disease; J44.9 Chronic obstructive pulmonary disease, unspecified; F32.A Depression, unspecified; Z68.31 Body mass index [BMI] 31.0-31.9, adult; I25.2 Old myocardial infarction; G47.31 Primary central sleep apnea; I25.10 Atherosclerotic heart disease of native coronary artery without angina pectoris; E78.5 Hyperlipidemia, unspecified; Z79.4 Long term (current) use of insulin; R11.2 Nausea with vomiting, unspecified; Z86.16 Personal history of COVID-19; Z87.891 Personal history of nicotine dependence; Z79.84 Long term (current) use of oral hypoglycemic drugs; Z79.82 Long term (current) use of aspirin; Z95.5 Presence of coronary angioplasty implant and graft; Z79.899 Other long term (current) drug therapy; Z79.02 Long term (current) use of antithrombotics/antiplatelets; Z86.73 Personal history of transient ischemic attack (TIA), and cerebral infarction without residual deficits; Z90.49 Acquired absence of other specified parts of digestive tract
CPT/HCPCS: 36415; 71045; 80048; 82962; 83880; 84484; 85025; 85610; 85730; 93005; 93308; 94002; 94003; 94640; 94668; 94762; 97161; 97165; 97802; 99285; A4216

== ENCOUNTER 2024-12-20 11:46 | Emergency (ER) | payer MEDICARE, OTHER, SELFPAY ==
[2018-08-03 13:04] VITALS: BMI 19.8
[2024-12-20 11:46] VITALS: BP 110/78; PULSE 89; RESP 18; TEMP 36.5; O2SAT 100; BMI 31.8
--- NOTE | 2024-12-20 11:50 | ED.RN ---
pt had an episode of unresponsiveness that lasted about 10 seconds afer EMS moved him to ED bed. pt was being shaken and almost required sternal rub before returning to consciousness.
--- NOTE | 2024-12-20 12:07 | ED.RN ---
per Dr. Servin who spoke to Dr Araujo- no STEMI.
--- NOTE | 2024-12-20 12:15 | EKG12_ITS ---
Test Reason : CP ADMIT Blood Pressure : */* mmHG Vent. Rate : 73 BPM Atrial Rate : 73 BPM P-R Int : 172 ms QRS Dur : 90 ms QT Int : 412 ms P-R-T Axes : 70 -12 -75 degrees QTcB Int : 453 ms Normal sinus rhythm Inferior infarct (cited on or before 25-Dec-2024) Abnormal ECG When compared with ECG of 25-Dec-2024 04:32, No significant change was found Confirmed by MARIETTA LYMAN ([id number]), editor producer VERONICA SCOTT ([id number]) on 12/26/2024 1:10:42 PM Referred By: Jody Servin Confirmed By: MARIETTA LYMAN
--- NOTE | 2024-12-20 12:20 | CT_ITS ---
PROCEDURE: CTA ABD/PELVIS W/WO CONTRAST 12/20/2024 REASON FOR EXAM: GI BLEED TECHNIQUE: CTA ABD/PELVIS W/WO CONTRAST Multiplanar Sagittal and Coronal images were obtained. 3D and or MIPS post processing was performed CONTRAST: Isovue 370 VOLUME: 100 mL One or more dose reduction techniques were used (e.g., Automated exposure control, adjustment of the mA and/or kV according to patient size, use of iterative reconstruction technique). RADIATION DOSE SUMMARY: CTDlvol: 26.35 mGy DLP: 959.01 mGycm COMPARISON: Prior study dated May 19, 2021. FINDINGS: Aorta: Mild atherosclerotic plaque formation of the abdominal aorta. Iliac Arteries: Mild calcified plaques. Celiac: Unremarkable SMA: Unremarkable MAYCO : Unremarkable Right Renal: Unremarkable Left Renal: Unremarkable Extravascular Findings: Calcified granuloma in the left lower lobe. Coronary artery calcification. Fatty infiltration of the liver. Status post cholecystectomy. Mild left hydronephrosis. Prostatic calcifications. Prior TURP. Scattered sigmoid diverticula. CT/CTA Abd/Pelvis W/WO Contrast IMPRESSION: No evidence of GI bleed. Mild degree of scattered sigmoid diverticula. Reading Location: [id number]
[2024-12-20 12:21] LABS: Hematocrit 41.8 % (40-54); Hemoglobin 13.8 g/dL (13.0-16.5); Immature Granulocytes Count 0.060 X10^3/uL (0.0-0.0); Mean Corp Hgb Conc 33.0 g/dL (32-36); Mean Corpuscular Volume 86.7 fL (80-94); Mean Platelet Vol. 13.3 fl (6.2-12.0); NRBC Flagged by Analyzer 0 % (0-5); Platelet Count 231 K/mm3 (150-450); RBC Distribution Width CV 13.8 % (11.6-14.6); RBC Distribution Width SD 43.2 fl (35.1-43.9); Red Blood Count 4.82 M/mm3 (4.6-6.2); White Blood Count 11.8 K/mm3 (4.4-11.0)
--- NOTE | 2024-12-20 12:25 | RAD_ITS ---
PROCEDURE: CHEST PA AND LATERAL 12/20/2024 REASON FOR EXAM: CHEST PAIN TECHNIQUE: CHEST PA AND LATERAL COMPARISON: December 15, 2024 FINDINGS: Hardware: Mid to lower cervical spine fusion. EKG leads. Suture anchors left proximal humerus. Heart: Mildly enlarged. Coronary artery atherosclerosis. Mediastinum: Aorta is atherosclerotic. Lungs: Clear. Bones: Circumscribed loose body in the axillary pouch of the shoulder. RAD/Chest PA and Lateral IMPRESSION: No acute cardiopulmonary process. Cardiac enlargement, aortic and coronary art attila atherosclerosis. Reading Location: [id number]
[2024-12-20 12:28] LABS: Partial Thromboplast Time 27.6 Seconds (24.1-36.2); Prothrombin Time (Protime)PT. 14.1 SECONDS (11.7-14.9)
[2024-12-20 12:46] VITALS: BP 111/75; PULSE 76; RESP 16; O2SAT 97
[2024-12-20 13:00] VITALS: BP 111/75; PULSE 75; RESP 18; O2SAT 98
[2024-12-20 13:05] LABS: AST(SGOT) 28 U/L (<=37); Alanine Aminotransfer ALT/SGPT 32 U/L (<=46); Albumin, Serum 4.0 g/dL (3.4-4.8); Alkaline Phosphatase 180 U/L (40-129); Anion Gap 19 (5-15); BUN 63 mg/dL (4-19); BUN/Creat Ratio 19.5 RATIO (10-20); Calcium,Total 9.5 mg/dL (7.6-11.0); Carbon Dioxide 18.5 mmol/L (21.0-32.0); Chloride 93 mmol/L (98-108); Estimated Creatinine Clearance 21.32 ml/min (50-250); Globulin 4.0 g/dL (2.2-4.2); Glucose 173 mg/dL (70-99); Lipase 120 U/L (13-75); Magnesium 2.4 mg/dL (1.5-2.2); Potassium 4.2 mmol/L (3.3-5.1)
--- NOTE | 2024-12-20 13:05 | ED.VIS.GI ---
HPI HPI - GI History of Present Illness Chief Complaint: GI Bleed Narrative Narrative: Patient is a 79-year-old male presenting to the emergency department for bright red blood per rectum. Patient's presenting from a nursing facility. He was just discharged on 12/17 for an admission for chest pain. Patient states that he has noticed the bright red blood in his stool for the past week or so but states that staff members noticed it today which is why he was sent in. While he was ambulating to the bathroom he did have an episode of lightheadedness and possible syncope per the facility. He did not fall. Patient endorses chest tightness that comes and goes which has been present since his prior admission. He denies any fever, chills, nausea, vomiting, diarrhea. States his last colonoscopy was years ago. He is on Brilinta and aspirin. [facility] Medical History Pericardial effusion Chest pain CKD (chronic kidney disease) stage 4, GFR 15-29 ml/min Central sleep apnea Diastolic heart failure Recent ST elevation myocardial infarction (STEMI) Chest pain History of acute inferior wall NC Acute ST elevation myocardial infarction (STEMI) of inferior wall Anxiety Depression Diabetes Kidney disease Former smoker Atrial fibrillation Myocardial infarct Coronary artery disease Hypertension TIA (transient ischemic attack) Anemia Shortness of breath Unstable angina Fatigue Syncope Left-sided weakness History of COVID-19 Presence of stent in coronary artery (~08/31/22) Dyslipidemia Diabetes mellitus Chronic kidney disease Coronary artery disease Angina pectoris Abnormal PFT Chest heaviness Palpitations DEAN (dyspnea on exertion) Dizziness Leg pain Cough Exposure to COVID-19 virus Nonhealing nonsurgical wound with fat layer exposed Laceration without foreign body of scalp, subsequent encounter Acute left-sided weakness Essential hypertension CHF (congestive heart failure) History of melanoma Obesity (BMI 35.0-39.9 without comorbidity) CAD (coronary artery disease) 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.9) COPD (chronic obstructive pulmonary disease) TIA (transient ischemic attack) Obstructive sleep apnea Atherosclerotic heart disease beaver coronary artery w/angina pectoris Type 2 diabetes mellitus without complications Hyperlipidemia Obesity Home Medications ?Medication ?Instructions ?Recorded ?Last Taken ?Type aspirin 81 mg tablet,delayed 81 mg PO DAILY@0800 health 01/21/17 10/11/23 History release maintenance mirtazapine 15 mg tablet (Remeron) 15 mg PO QHS sleep 09/21/18 10/11/23 History cyanocobalamin (vitamin B-12) 1,000 mcg PO DAILY vitamin ##0 06/01/19 10/11/23 History 1,000 mcg capsule magnesium oxide 400 mg (241.3 mg 800 mg PO DAILY SUPPLEMENT 08/01/21 10/11/23 History magnesium) tablet cholecalciferol (vitamin D3) [address] 09/16/21 10/11/23 History mcg (1,000 unit) tablet fluoxetine 40 mg capsule 80 mg PO DAILY DEPRESSION 90 days 09/16/21 10/11/23 History #180 caps acetaminophen 325 mg tablet 650 mg PO Q6H PRN Pain 1-02/0910/12/23 Unknown History atorvastatin 40 mg tablet 40 mg PO QHS CHOLESTEROL #90 tabs 06/14/24 Unknown Rx nitroglycerin 0.4 mg sublingual 0.4 mg sublingual Q5-15M PRN CHEST 06/14/24 Unknown Rx tablet PAIN #25 tabs pantoprazole 40 mg tablet,delayed 40 mg PO DAILY GERD #90 tabs 06/14/24 Unknown Rx release amlodipine 5 mg tablet 5 mg PO QPM blood pressure 10/25/24 Unknown History metoprolol succinate 25 mg 25 mg PO DAILY blood pressure #30 10/25/24 Unknown Rx tablet,extended release 24 hr tabs ticagrelor 90 mg tablet (Brilinta) 90 mg PO BID #60 tabs 12/02/24 Unknown Rx empagliflozin 10 mg tablet 10 mg PO DAILY #90 tabs 12/06/24 Unknown Rx (Jardiance) furosemide 40 mg tablet 40 mg PO DAILY #90 tabs 12/06/24 Unknown Rx spironolactone 25 mg tablet 25 mg PO DAILY #90 tabs 12/06/24 Unknown Rx cetirizine 10 mg tablet 10 mg PO DAILY Allergic Reaction 12/12/24 Unknown History colchicine 0.6 mg capsule 0.6 mg PO BID 90 days #0 caps 12/17/24 Unknown Rx nutrition tx glu 120 ml PO 4X/DAY #0 mL 12/17/24 Unknown Rx intol,lac-free,soy-fiber 0.06 gram-1.2 kcal/mL liquid (Glucerna 1.2 Ashwin) potassium chloride 10 mEq 30 meq (3 x 10 mEq) PO BID #0 tabs 12/17/24 Unknown Rx tablet,extended release(part/cryst) promethazine 12.5 mg tablet 12.5 mg PO Q6H PRN nausea and 12/17/24 Unknown Rx vomiting #1 TAB Allergy/AdvReac Type Severity Reaction Status Date / Time No Known Allergies Allergy Verified 12/20/24 11:51 Family History Father Parkinsons disease Prostate cancer Mother Osteoporosis Surgical History Presence of coronary angioplasty implant and graft (11/27/24) History of tympanostomy tube placement History of percutaneous transluminal coronary angioplasty (08/18/18) History of herniorrhaphy Hx of cholecystectomy History of tonsillectomy History of prostatectomy Social History household members: spouse and none housing: skilled nursing Smoking Status: Former smoker quit date: 05/03/98 pack-years: 50 how long ago did patient quit smokin years ago alcohol intake: never substance use type: does not use caffeine: Yes Type: coffee and tea Number of servings: 6 ROS ROS ED ROS Narrative see HPI EXAM Physical Exam Narrative Exam Narrative: Vital signs: Reviewed General: Alert and orientedx3. No acute distress. Chronically ill-appearing HEENT: Head is normocephalic and atraumatic, sinuses nontender, pupils equal round and reactive. Nares are patent. Oropharynx and throat exams normal. Neck: Supple without lymphadenopathy nontender Cardiovascular: Regular rate and rhythm, no murmurs. No rubs or gallops. Normal S1 and S2 Respiratory: Clear to auscultation bilaterally. No wheezes, rales, rhonchi Abdominal: Soft and nontender. Normal bowel sounds. No guarding or rebound. Nonsurgical abdomen : Exam performed with RN web development director at bedside. No gross blood. No hemorrhoids or fissures. Extremities: No tenderness. Normal range of motion. Normal sensation. Skin: No rash or redness. Neurological: Cranial nerves II through XII are grossly intact. Normal strength and sensation. Normal cerebellar function The rest of the physical exam is unremarkable Const Vital Signs: 12/20/24 11:46 12/20/24 12:03 12/20/24 12:46 Temperature 97.7 F L Temperature Source Axillary Pulse Rate 89 76 Respiratory Rate 18 16 Blood Pressure 110/78 111/75 Blood Pressure Mean 88 87 Pulse Ox 100 97 Oxygen Delivery Method Room Air Room Air Room Air 12/20/24 13:00 12/20/24 13:15 12/20/24 14:00 Temperature 97.7 F L Temperature Source Pulse Rate 75 76 63 Respiratory Rate 18 16 20 H Blood Pressure 111/75 121/78 H 103/65 Blood Pressure Mean 87 92 77 Pulse Ox 98 97 96 Oxygen Delivery Method Room Air Room Air MDM MDM MDM Narrative Medical decision making narrative: Patient is a 79-year-old male presenting to the emergency department for a GI bleed. Patient was seen and examined. Vitals are stable. Patient resting bed comfortably in no acute distress. Differential includes but is not limited to: Upper GI bleed including peptic ulcer disease, lower GI bleed including AVM, diverticulitis, hemorrhoids, fissure EKG shows elevations in leads III and aVF but do meet STEMI criteria. There is not appear to be reciprocal depression. I did compare this to the patient's prior EKGs and it actually looks improved from those. I did speak to Dr. Araujo, who states this changes are likely due to aneurysmal dilatation that was seen on the patient's cath prior. Agrees with no STEMI alert. Recommends not obtaining troponin given they will be chronically elevated and the patient did just have a cath recently. CBC with a mild leukocytosis of 11.8. Hemoglobin is stable at 13.8. PT and INR within normal limits. CMP with mild hyponatremia of 131, mild elevation in anion gap of 19. Slightly worsening kidney function from 12/16. Fluid bolus given. Elevated alk phos of 180 which also appears chronic. CTA of the abdomen shows no evidence of GI bleed. Does show scattered sigmoid diverticula. Chest x-ray with no acute process. Blood pressure is stable, no tachycardia, normal hemoglobin. Mentating normally. He is only on Brilinta and aspirin at home. Given the patient's multiple chronic health issues along with the lower GI bleed, I did speak to hospitalist for possible admission, Dr. Ridley. He recommended with normal vitals, PT, INR and normal hemoglobin with no evidence of GI bleed on CTA that the patient can be managed outpatient with colonoscopy. I also discussed the possible syncopal episode, likely due to dehydration with the SUSAN on CKD. He did speak to Dr. Araujo as well. They attribute the GI bleed as possible cause from colchicine which was started for possible pericarditis. They agree with stopping it. They also do not think the patient needs telemetry monitoring for the syncopal episode and states that its likely due to his dehydration as well. Patient and family at bedside were updated on the findings. Given GI follow-up for outpatient colonoscopy. Instructed to return anytime if he develops any lightheadedness, weakness, abdominal pain, increased bright red blood per rectum. They are agreeable with the plan. Patient discharged from the Emergency Department. I do not feel that the patient's evaluation reveals any acute reason for admission at this time. I instructed them to either follow-up with their primary care physician or promptly return to the Emergency Department for reevaluation should symptoms worsen or new symptoms develop. I explained what symptoms would indicate the need to return to the emergency department. Shared decision making was used. The patient voiced understanding of the treatment plan and is agreeable with it. Clinical impression Lower GI bleed SUSAN on CKD History & Record Review Discussion w/independent historian: Patient and Significant other Additional record(s) reviewed:: Prior inpatient record and Prior ED visit Lab Data Attestation: I reviewed the patient's lab results. Labs: Laboratory Results - last 24 hr 12/20/24 11:50 WBC 11.8 H RBC 4.82 Hgb 13.8 Hct 41.8 MCV 86.7 MCH 28.6 MCHC 33.0 RDW Std Deviation 43.2 RDW Coeff of Adrian 13.8 Plt Count 231 MPV 13.3 H Immature Gran % (Auto) 0.500 Neut % (Auto) 75.9 H Lymph % (Auto) 11.8 L [place] % (Auto) 11.5 H Eos % (Auto) 0.1 Baso % (Auto) 0.2 Absolute Neuts (auto) 9.0 H Absolute Lymphs (auto) 1.39 Nucleated RBC % 0 PT 14.1 INR 1.1 APTT 27.6 Sodium 131 L Potassium 4.2 Chloride 93 L Carbon Dioxide 18.5 L Anion Gap 19 H BUN 63 H Creatinine 3.24 H Estim Creat Clear Calc 21.32 L Est GFR (MDRD) Non-Af 19 L BUN/Creatinine Ratio 19.5 Glucose 173 H Calcium 9.5 Magnesium 2.4 H Total Bilirubin 1.15 AST 28 ALT 32 Alkaline Phosphatase 180 H Total Protein 8.0 Albumin 4.0 Globulin 4.0 Albumin/Globulin Ratio 1.0 Lipase 120 H Blood Type O POSITIVE Antibody Screen NEGATIVE Radiography Diagnostic Testing: Clinical Impression(s) from Imaging Studies Abdomen/Pelvis CTA 12/20/24 12:20 IMPRESSION: No evidence of GI bleed. Mild degree of scattered sigmoid diverticula. Reading Location: [id number] Chest X-Ray 12/20/24 12:25 IMPRESSION: No acute cardiopulmonary process. Cardiac enlargement, aortic and coronary artery atherosclerosis. Reading Location: [facility] Discharge Plan Triage Chief Complaint: GI Bleed ED Provider: Jody Servin Dx/Rx/DC Orders Clinical Impression: BRBPR (bright red blood per rectum), Nausea Instructions: ED Lower GI Bleeding (Stable) Prescriptions: No Action fluoxetine 40 mg capsule 80 mg PO DAILY 90 Days Qty: 180 magnesium oxide 400 mg (241.3 mg magnesium) tablet 800 mg PO DAILY cholecalciferol (vitamin D3) 25 mcg (1,000 unit) tablet 25 mcg PO DAILY cetirizine 10 mg tablet 10 mg PO DAILY amlodipine 5 mg tablet 5 mg PO QPM metoprolol succinate 25 mg tablet extended release 24 hr 25 mg PO DAILY Qty: 30 11RF aspirin 81 MG tablet 81 mg PO DAILY@0800 cyanocobalamin (vitamin B-12) 1,000 MCG capsule 1,000 mcg PO DAILY Qty: 0 acetaminophen 325 MG tablet 650 mg PO Q6H PRN (Reason: Pain 1-02/09) colchicine 0.6 mg Capsule 0.6 mg PO BID 90 Days Qty: 0 0RF Rx Instructions: Take for a total of 90 days then discontinue potassium chloride 10 mEq Tablet,Er Particles/Crystals 30 meq PO BID Qty: 0 0RF Glucerna 1.2 Ashwin 0.06-1.2 gram-kcal/mL Liquid 120 ml PO 4X/DAY Qty: 0 0RF promethazine 12.5 mg tablet 12.5 mg PO Q6H PRN (Reason: nausea and vomiting) Qty: 1 0RF ticagrelor [Brilinta] 90 mg Tablet 90 mg PO BID Qty: 60 11RF furosemide 40 mg Tablet 40 mg PO DAILY Qty: 90 0RF spironolactone 25 mg Tablet 25 mg PO DAILY Qty: 90 0RF Jardiance 10 mg Tablet 10 mg PO DAILY Qty: 90 0RF mirtazapine [Remeron] 15 mg tablet 15 mg PO QHS nitroglycerin 0.4 mg tablet, sublingual 0.4 mg SUBLINGUAL Q5-15M PRN (Reason: CHEST PAIN) Qty: 25 3RF atorvastatin 40 mg tablet 40 mg PO QHS Qty: 90 3RF pantoprazole 40 mg tablet,delayed release (DR/EC) 40 mg PO DAILY Qty: 90 3RF Primary Care Provider: Victor M Luke Referrals: Victro M Luke DO [Primary Care Provider] - 2 Days FriendTyler DO [Med Staff - Active Staff] - 2 Days Activity Restrictions/Additional Instructions: Please stop taking the colchicine. Your evaluation in the Emergency Department did not reveal any acute reason for admission. However, I want to emphasize that you may be early in the course of a disease process or illness even if it is not present. For this reason you should follow-up within 24 hours for reevaluation with either your primary care physician or if necessary back here in the Emergency Department. You should return to the Emergency Department immediately if your symptoms worsen or new symptoms develop. Print Language: Bolivian Disposition Disposition: Home, Self Care Discharge Date/Time: 12/20/24 14:48
[2024-12-20] MEDS: 0.9% Normal Saline (1000mL) 1,000 ML 1000 ML IV (13:12)
[2024-12-20 13:15] VITALS: BP 121/78; PULSE 76; RESP 16; TEMP 36.5; O2SAT 97
[2024-12-20 14:00] VITALS: BP 103/65; PULSE 63; RESP 20; O2SAT 96
--- NOTE | 2024-12-20 14:48 | ED.RN ---
Report called to [facility].
== END 2024-12-20 14:48 | disposition home or self-care (01) ==
PROVIDERS: Emergency Provider Student in an Organized Health Care Education/Training Program; PCP Family Medicine; Referring Provider Student in an Organized Health Care Education/Training Program; Visit Provider Student in an Organized Health Care Education/Training Program
DX: K92.2 Gastrointestinal hemorrhage, unspecified (principal); N18.4 Chronic kidney disease, stage 4 (severe); I13.0 Hypertensive heart and chronic kidney disease with heart failure and stage 1 through stage 4 chronic kidney disease, or unspecified chronic kidney disease; I50.32 Chronic diastolic (congestive) heart failure; J44.9 Chronic obstructive pulmonary disease, unspecified; E11.22 Type 2 diabetes mellitus with diabetic chronic kidney disease; Z87.891 Personal history of nicotine dependence; Z79.02 Long term (current) use of antithrombotics/antiplatelets; E78.5 Hyperlipidemia, unspecified; Z79.82 Long term (current) use of aspirin; I25.10 Atherosclerotic heart disease of native coronary artery without angina pectoris; E87.1 Hypo-osmolality and hyponatremia
CPT/HCPCS: 71046; 74174; 80053; 82274; 83690; 83735; 85025; 85610; 85730; 86850; 86900; 86901; 93005; 96360; 99285; Q9967; A4216

== ENCOUNTER 2024-12-23 23:43 | Inpatient (IN) | payer MEDICARE, OTHER, SELFPAY ==
[2018-08-03 13:04] VITALS: BMI 19.8
[2024-12-23 23:46] VITALS: BP 110/71; PULSE 73; RESP 18; TEMP 36.6; O2SAT 99; BMI 32.1
[2024-12-23 23:47] VITALS: BP 110/71; PULSE 73; RESP 20; TEMP 36.6; O2SAT 98
[2024-12-24] VITALS (9 sets, daily range): BP systolic 103–119; BP diastolic 56–75; PULSE 58–74; RESP 16–18; TEMP 36.6–36.9; O2SAT 95–100; BMI 31.4
[2024-12-24 00:20] LABS: Hematocrit 35.7 % (40-54); Hemoglobin 11.8 g/dL (13.0-16.5); Mean Corp Hgb Conc 33.1 g/dL (32-36); Mean Corpuscular Volume 89.5 fL (80-94); Mean Platelet Vol. 12.9 fl (6.2-12.0); Platelet Count 139 K/mm3 (150-450); RBC Distribution Width CV 14.2 % (11.6-14.6); RBC Distribution Width SD 45.5 fl (35.1-43.9); Red Blood Count 3.99 M/mm3 (4.6-6.2); White Blood Count 8.9 K/mm3 (4.4-11.0)
[2024-12-24 00:21] LABS: Immature Granulocytes Count 0.030 X10^3/uL (0.0-0.0); NRBC Flagged by Analyzer 0 % (0-5)
[2024-12-24 00:29] LABS: Prothrombin Time (Protime)PT. 13.5 SECONDS (11.7-14.9)
[2024-12-24 00:30] LABS: Partial Thromboplast Time 27.6 Seconds (24.1-36.2)
--- OUTSIDE RECORDS SUMMARY | 2024-12-24 00:54 | XMS RPT_ITS | CCD ---
Author Organization [facility] Care Team Providers Care Data Systems Analyst Name Role Phone Unavailable Unavailable Unavailable Marycarmen Rodriguez DO Primary Care Provider [phone] Marycarmen Rodriguez DO Primary Care Provider [phone] MIN HOWARD Referring Unavailable MARYCARMEN RODRIGUEZ Primary Care Unavailable ELADIO INGRAM Attending Unavaila ble DAVBAYRON, ELADIO ALLEN Admitting Unavaila ble MARYCARMEN RODRIGUEZ [...] Primary Care Unavailable FERNANDA ACUÑA Referring Unavailable SCHWFERNANDA RODRIGUEZ Attending Unavailable MARYCARMEN RODRIGUEZ Primary Care Unavailable MARYCARMEN RODRIGUEZ Admitting Unavailable ELADIO INGRAM Attending Unavaila ble MARYCARMEN RODRIGUEZ Referring Unavailable MARYCARMEN RODRIGUEZ Primary Care Unavailable ELADIO INGRAM Attending Unavaila MARYCARMEN Pena Primary Care Unavailable Dr. Marycarmen Rodriguez Primary Care Provider [phone] Dr. Marycarmen Rodriguez Referring Provider Mike PEREA, YRN Laguna Attending Provider Dr. Darnell Corral Attending Provider Mike FARMWORKER ANIMAL, FARMWORKER ANIMAL-C Luz Elena Referring Provider Mike FARMWORKER ANIMAL, FARMWORKER ANIMAL-C Luz Elena Other Provider [phone] Dr. John Palacios Attending Provider Mike FARMWORKER ANIMAL, FARMWORKER ANIMAL-C Luz Elena Referring Provider Dr. Marycarmen Rodriguez Primary Care Provider [phone] Dr. Marycarmen Rodriguez Referring Provider Mike FARMWORKER ANIMAL, FARMWORKER ANIMAL-C Luz Elena Attending Provider Dr. Zen East Attending Provider Dr. Marycarmen Rodriguez Primary Care Provider [phone] Marycarmen Rodriguez Referring Provider Dr. Merritt Persaud Attending Provider PARISH Youssef Attending Provider Mike PEREA, ELIAZAR-C Luz Elena Attending Provider Dr. John Palacios Attending Provider Dr. Merritt Persaud Referring Provider Dr. Marycarmen Rodriguez Primary Care Provider [phone] Dr. Marycarmen Rodriguez Referring Provider Dr. Merritt [...] Provider Unavailable Dr. Pardeep Hall Emergency Provider [phone] Dr. Alka Leo Admit Provider Dr. Alka Leo Attending Provider Dr. Alka Leo Other Provider Dr. Shaan Santos Attending Provider [phone] [Mass/Vol] 5.1 mmol/L 3.3-5.1 [facility] RBC Auto (Bld) [#/Vol]Ordere d By: Boyd Rock on 12-13-2024 RBC (Bld) [#/Vol] 4.10 10*6/uL Low 4.6-6.[address] [facility] Serum creatinine measurement (mass/volume)Ordered By: Boyd Rock on 12-13-2024 Creatinine [Mass/Vol] 3.18 mg/dL High 0.70-1.20 [facility] Serum globulin measurementOr dered By: Boyd Rock on 12-13-2024 Globulin (S) [Mass/Vol] 4.2 g/dL 2.2-4.2 [facility] Serum glucose measurement (m ass/volume)Ordered By: Boyd Rock on 12-13-2024 Glucose [Mass/Vol] 289 mg/dL High 70-99 [facility] Serum or plasma alanine guerrero otransferase (ALT) measurementOrdered By: Boyd Rock on 12-13-2024 ALT [Catalytic activity/Vol] 22 U/L <47 [facility] Serum or plasma albumin francine urement (mass/volume)Ordered By: Boyd Rock on 12-13-2024 Albumin [Mass/Vol] 4.1 g/dL 3.4-4.8 [facility] Serum or plasma albumin/glob ulin mass ratioOrdered By: Boyd Rock on 12-13-2024 Albumin/Globulin [Mass ratio] 1.0 {ratio} 0.9-2.4 [facility] Serum or plasma alkaline bell sphatase measurementOrdered By: Boyd Rock on 12-13-2024 ALP [Catalytic activity/Vol] 147 U/L High 40-129 [facility] Serum or plasma calcium francine urement (mass/volume)Ordered By: Boyd Rock on 12-13-2024 Calcium [Mass/Vol] 9.7 mg/dL 7.6-11.0 [facility] Serum or plasma urea nitroge n measurement (mass/volume)Ordered By: Boyd Rock on 12-13-2024 Urea nitrogen [Mass/Vol] 59 mg/dL High 4-19 [facility] Sodium levelOrdered By: Lupe Rock on 12-13-2024 Sodium [Moles/Vol] 130 mmol/L Low 133-145 [facility] T4 freeOrdered By: Boyd Rock on 12-13-2024 Free T4 [Mass/Vol] 1.40 ng/dL 0.76-1.46 [facility] Total proteinOrdered By: Anastacio Rock on 12-13-2024 Protein [Mass/Vol] 8.3 g/dL 5.9-8.4 [facility] White blood cell (WBC) count Ordered By: Boyd Rock on 12-13-2024 WBC (Bld) [#/Vol] 13.7 10*3/uL High 4.4-11.[address] [facility] Anion gap in Serum or Plasma Ordered By: Gustabo Pérez on 12-12-2024 Anion gap [Moles/Vol] 17 mmol/L High 5-15 [facility] BUN/creatinine ratioOrdered By: Gustabo Pérez on 12-12-2024 Urea nitrogen/Creatinine [Mass ratio] 17.9 mg/mg - [facility] Basic Metabolic Profile (BMP )on 12-12-2024 BUN/CRE 17.9 RATIO Normal - [facility] Comment on above: Performed By: #### L 500.2500 ####[facility] [address] [place], [address] Calcium [Mass/Vol] 9.6 mg/dL Normal 7.6-11.0 [facility] Comment on above: Performed By: #### L 500.2500 ####[facility] [address] [place], [address] Chloride [Moles/Vol] 93 mmol/L Low 98-108 [facility] Comment on above: Performed By: #### L 500.2500 ####[facility] [address] [place], [address] CO2 [Moles/Vol] 18.2 mmol/L Low 21.0-32.0 [facility] Comment on above: Performed By: #### L 500.2500 ####[facility] [address] [place], [address] Creatinine [Mass/Vol] 3.15 mg/dL High 0.70-1.20 [facility] Comment on above: Performed By: #### L 500.2500 ####[facility] [address] [place], [address] GAP 17 High 5-15 [facility] Comment on above: Performed By: #### L 500.2500 ####[facility] [address] [place], [address] GFR/1.73 sq M.predicted among non-blacks MDRD (S/P/Bld) [Vol rate/Area] 19 mL/min/{1.73_m2} Low >60 [facility] Comment on above: Result Comment: mL/m in/1.73m2 CKD-EPI Creatinine Equation (2020) Performed By: #### L 500.2500 ####[facility] [address] [place], [address] Glucose [Mass/Vol] 289 mg/dL High 70-99 [facility] Comment on above: Performed By: #### L 500.2500 ####[facility] [address] [place], [address] Potassium [Moles/Vol] 5.0 mmol/L Normal 3.3-5.1 [facility] Comment on above: Result Comment: Hemo lysis present, Results??could be affected.?? Performed By: #### L 500.2500 ####[facility] [address] [place], [place], [address] Sodium [Moles/Vol] 128 mmol/L Low 133-145 [facility] Comment on above: Performed By: #### L 500.2500 ####[facility] [address] [place], [place], [address] Urea nitrogen [Mass/Vol] 56 mg/dL High 4-19 [facility] Comment on above: Performed By: #### L 500.2500 ####[facility] [address] [place], [place], [address] Carbon dioxide, total [Moles /volume] in Central venous bloodOrdered By: Gustabo Pérez on 12-12-2024 CO2 [Moles/Vol] 18.2 mmol/L Low 21.0-32.0 [facility] Cardiology Visit Reporton Cardiology Visit Report Normal [facility] Chloride assayOrdered By: Lydia Pérez on 12-12-2024 Chloride [Moles/Vol] 93 mmol/L Low 98-108 [facility] Glomerular filtration rate ( GFR) estimation/1.73 sq m using serum, plasma, or whole bOrdered By: Gustabo Pérez on 12-12-2024 GFR/1.73 sq M.predicted among non-blacks MDRD (S/P/Bld) [Vol rate/Area] 19 mL/min/{1.73_m2} Low >60 [facility] Potassium measurement (mass/ volume)Ordered By: Gustabo Pérez on 12-12-2024 Potassium (Unsp spec) [Mass/Vol] 5.0 mmol/L 3.3-5.1 [facility] Serum creatinine measurement (mass/volume)Ordered By: Gustabo Pérez on 12-12-2024 Creatinine [Mass/Vol] 3.15 mg/dL High 0.70-1.20 [facility] Serum glucose measurement (m ass/volume)Ordered By: Gustabo Pérez on 12-12-2024 Glucose [Mass/Vol] 289 mg/dL High 70-99 [facility] Serum or plasma calcium francine urement (mass/volume)Ordered By: Gustabo Pérez on 12-12-2024 Calcium [Mass/Vol] 9.6 mg/dL 7.6-11.0 [facility] Serum or plasma urea nitroge n measurement (mass/volume)Ordered By: Gustabo Pérez on 12-12-2024 Urea nitrogen [Mass/Vol] 56 mg/dL High 4-19 [facility] Sodium levelOrdered By: Gustabo Pérez on 12-12-2024 Sodium [Moles/Vol] 128 mmol/L Low 133-145 [facility] Cardiac Cath Interventionon 12-11-2024 Cardiac Cath Intervention Normal [facility] Absolute lymphocyte countOrd ered By: Shaan Santos on 12-08-2024 Lymphocytes Auto (Unsp spec) [#/Vol] 1.20 10*3/uL 0.83-4.51 [facility] Anion gap in Serum or Plasma Ordered By: Shaan Santos on 12-08-2024 Anion gap [Moles/Vol] 18 mmol/L High 5-15 [facility] Automated lymphocyte count a s percentage of total leukocytesOrdered By: Shaan Santos on 12-08-2024 Lymphocytes/100 WBC Auto (Unsp spec) 11.4 % Low 19-41 [facility] BUN/creatinine ratioOrdered By: Shaan Santos on 12-08-2024 Urea nitrogen/Creatinine [Mass ratio] 15.6 mg/mg 10-20 [facility] Basic Metabolic Profile (BMP )on 12-08-2024 BUN/CRE 15.6 RATIO Normal 10-20 [facility] Comment on above: Performed By: #### L 100.0100, L500.2500 ####[facility] [address] [place], [address] Calcium [Mass/Vol] 9.6 mg/dL Normal 7.6-11.0 [facility] Comment on above: Performed By: #### L 100.0100, L500.2500 ####[facility] [address] [place], [address] Chloride [Moles/Vol] 95 mmol/L Low 98-108 [facility] Comment on above: Performed By: #### L 100.0100, L500.2500 ####[facility] [address] [place], [address] CO2 [Moles/Vol] 21.2 mmol/L Normal 21.0-32.0 [facility] Comment on above: Performed By: #### L 100.0100, L500.2500 ####[facility] [address] [place], [address] Creatinine [Mass/Vol] 2.84 mg/dL High 0.70-1.20 [facility] Comment on above: Performed By: #### L 100.0100, L500.2500 ####[facility] [address] [place], [address] ECRCL 24.45 ml/min Low 50-250 [facility] Comment on above: Performed By: #### L 100.0100, L500.2500 ####[facility] [address] [place], [address] GAP 18 High 5-15 [facility] Comment on above: Performed By: #### L 100.0100, L500.2500 ####[facility] [address] [place], [address] GFR/1.73 sq M.predicted among non-blacks MDRD (S/P/Bld) [Vol rate/Area] 22 mL/min/{1.73_m2} Low >60 [facility] Comment on above: Result Comment: mL/m in/1.73m2 CKD-EPI Creatinine Equation (2020) Performed By: #### L 100.0100, L500.2500 ####[facility] [address] [place], [address] Glucose [Mass/Vol] 178 mg/dL High 70-99 [facility] Comment on above: Performed By: #### L 100.0100, L500.2500 ####[facility] [address] [place], [address] Potassium [Moles/Vol] 3.4 mmol/L Normal 3.3-5.1 [facility] Comment on above: Performed By: #### L 100.0100, L500.2500 ####[facility] [address] [place], [address] Sodium [Moles/Vol] 134 mmol/L Normal 133-145 [facility] Comment on above: Performed By: #### L 100.0100, L500.2500 ####[facility] [address] [place], [address] Urea nitrogen [Mass/Vol] 44 mg/dL High 4-19 [facility] Comment on above: Performed By: #### L 100.0100, L500.2500 ####[facility] [address] [place], [address] BUN Normal 4-19 [facility] Comment on above: Result Comment: Canc elled via OM: Order cancelled - Patient discharged Performed By: #### L 500.2500, L100.0100 ####[facility] [address] [place], [address] BUN/CRE Normal 10-20 [facility] Comment on above: Result Comment: Canc elled via OM: Order cancelled - Patient discharged Performed By: #### L 500.2500, L100.0100 ####[facility] [address] [place], [address] Calcium Normal 7.6-11.0 [facility] Comment on above: Result Comment: Canc elled via OM: Order cancelled - Patient discharged Performed By: #### L 500.2500, L100.0100 ####[facility] [address] [place], [address] CL Normal 98-108 [facility] Comment on above: Result Comment: Canc elled via OM: Order cancelled - Patient discharged Performed By: #### L 500.2500, L100.0100 ####[facility] [address] [place], [address] CO2 Normal 21.0-32.0 [facility] Comment on above: Result Comment: Canc elled via OM: Order cancelled - Patient discharged Performed By: #### L 500.2500, L100.0100 ####[facility] [address] [place], [address] CREAT,SERUM Normal 0.70-1.20 [facility] Comment on above: Result Comment: Canc elled via OM: Order cancelled - Patient discharged Performed By: #### L 500.2500, L100.0100 ####[facility] [address] [place], [address] eGFR Normal >60 [facility] Comment on above: Result Comment: Canc elled via OM: Order cancelled - Patient discharged Performed By: #### L 500.2500, L100.0100 ####[facility] [address] [place], [address] GAP Normal 5-15 [facility] Comment on above: Result Comment: Canc elled via OM: Order cancelled - Patient discharged Performed By: #### L 500.2500, L100.0100 ####[facility] [address] [place], [address] GLU Normal 70-99 [facility] Comment on above: Result Comment: Canc elled via OM: Order cancelled - Patient discharged Performed By: #### L 500.2500, L100.0100 ####[facility] [address] [place], [address] Potassium Normal 3.3-5.1 [facility] Comment on above: Result Comment: Canc elled via OM: Order cancelled - Patient discharged Performed By: #### L 500.2500, L100.0100 ####[facility] [address] [place], [address] Basic Metabolic Profile (BMP) Normal 133-145 [facility] Comment on above: Result Comment: Canc elled via OM: Order cancelled - Patient discharged Performed By: #### L 500.2500, L100.0100 ####[facility] [address] [place], [address] Basophil percentageOrdered B y: Shaan Santos on 12-08-2024 Basophils/100 WBC (Bld) 0.5 % 0-1 [facility] Bedside Glucoseon 12-08-2024 FINGERSTICK GLU 249 mg/dL High 74-106 [facility] Comment on above: Result Comment: WILDA GEMENT OF PATIENT CARE PER NURSING PROTOCOL Performed By: #### L 501.080 ####[facility] [address] [place], [address] FINGERSTICK GLU 185 mg/dL High 74-106 [facility] Comment on above: Result Comment: WILDA GEMENT OF PATIENT CARE PER NURSING PROTOCOL Performed By: #### L 501.080 ####[facility] [address] [place], [address] FINGERSTICK GLU 222 mg/dL High 74-106 [facility] Comment on above: Result Comment: WILDA GEMENT OF PATIENT CARE PER NURSING PROTOCOL Performed By: #### L 501.080 ####[facility] [address] [place], [address] CBC W/Diff, Automatedon Absolute Lymph 1.20 X10 3/uL Normal 0.83-4.51 [facility] Comment on above: Performed By: #### L 100.0100, L500.2500 ####[facility] [address] [place], [address] Absolute Neut 7.8 X10 3/uL High 2.0-7.7 [facility] Comment on above: Performed By: #### L 100.0100, L500.2500 ####[facility] [address] [place], [address] Basophils/100 WBC (Bld) 0.5 % Normal 0-1 [facility] Comment on above: Performed By: #### L 100.0100, L500.2500 ####[facility] [address] [place], [address] Eosinophils/100 WBC (Bld) 1.0 % Normal 0-5 [facility] Comment on above: Performed By: #### L 100.0100, L500.2500 ####[facility] [address] [place], [address] Erythrocyte distribution width (RBC) [Ratio] 13.4 % Normal 11.6-14.6 [facility] Comment on above: Performed By: #### L 100.0100, L500.2500 ####[facility] [address] [place], [address] Hematocrit (Bld) [Volume fraction] 39.2 % Low 40-54 [facility] Comment on above: Performed By: #### L 100.0100, L500.2500 ####[facility] [address] [place], [address] Hemoglobin (Bld) [Mass/Vol] 12.9 g/dL Low 13.0-16.5 [facility] Comment on above: Performed By: #### L 100.0100, L500.2500 ####[facility] [address] [place], [address] IG% 0.900 Normal 0.0-0.9 [facility] Comment on above: Result Comment: IG% - Immature Granulocytes (promyelocytes, myelocytes andmetamyelocytes) > 1% indicates that a LEFT SHIFT is Present. Performed By: #### L 100.0100, L500.2500 ####[facility] [address] [place], [address] Lymphocytes/100 WBC (Bld) 11.4 % Low 19-41 [facility] Comment on above: Performed By: #### L 100.0100, L500.2500 ####[facility] [address] [place], [address] MCH (RBC) [Entitic mass] 28.9 pg Normal 27.0-32.0 [facility] Comment on above: Performed By: #### L 100.0100, L500.2500 ####[facility] [address] [place], [address] MCHC (RBC) [Mass/Vol] 32.9 g/dL Normal 32-36 [facility] Comment on above: Performed By: #### L 100.0100, L500.2500 ####[facility] [address] [place], [address] MCV (RBC) [Entitic vol] 87.7 fL Normal 80-94 [facility] Comment on above: Performed By: #### L 100.0100, L500.2500 ####[facility] [address] [place], [address] Monocytes/100 WBC (Bld) 12.1 % High 0-10 [facility] Comment on above: Performed By: #### L 100.0100, L500.2500 ####[facility] [address] [place], [address] Neutrophils/100 WBC (Bld) 74.1 % High 47-70 [facility] Comment on above: Performed By: #### L 100.0100, L500.2500 ####[facility] [address] [place], [address] Nucleated RBC (Bld) [#/Vol] 0 10*3/uL Normal 0-5 [facility] Comment on above: Performed By: #### L 100.0100, L500.2500 ####[facility] [address] [place], [address] Platelet mean volume (Bld) [Entitic vol] 13.2 fL High 6.2-12.0 [facility] Comment on above: Performed By: #### L 100.0100, L500.2500 ####[facility] [address] [place], [address] Platelets (Bld) [#/Vol] 178 10*3/uL Normal 150-450 [facility] Comment on above: Performed By: #### L 100.0100, L500.2500 ####[facility] [address] [place], [address] RBC (Bld) [#/Vol] 4.47 10*6/uL Low 4.6-6.[address] [facility] Comment on above: Performed By: #### L 100.0100, L500.2500 ####[facility] [address] [place], [address] RDW SD 42.8 fl Normal 35.1-43.9 [facility] Comment on above: Performed By: #### L 100.0100, L500.2500 ####[facility] [address] [place], [address] WBC (Bld) [#/Vol] 10.5 10*3/uL Normal 4.4-11.[address] [facility] Comment on above: Performed By: #### L 100.0100, L500.2500 ####[facility] [address] [place], [address] Absolute Neut Normal 2.0-7.7 [facility] Comment on above: Result Comment: Canc elled via OM: Order cancelled - Patient discharged Performed By: #### L 500.2500, L100.0100 ####[facility] [address] [place], [address] HCT Normal 40-54 [facility] Comment on above: Result Comment: Canc elled via OM: Order cancelled - Patient discharged Performed By: #### L 500.2500, L100.0100 ####[facility] [address] [place], [address] HGB Normal 13.0-16.5 [facility] Comment on above: Result Comment: Canc elled via OM: Order cancelled - Patient discharged Performed By: #### L 500.2500, L100.0100 ####[facility] [address] [place], [address] MCH Normal 27.0-32.0 [facility] Comment on above: Result Comment: Canc elled via OM: Order cancelled - Patient discharged Performed By: #### L 500.2500, L100.0100 ####[facility] [address] [place], [address] MCHC Normal 32-36 [facility] Comment on above: Result Comment: Canc elled via OM: Order cancelled - Patient discharged Performed By: #### L 500.2500, L100.0100 ####[facility] [address] [place], [address] MCV Normal 80-94 [facility] Comment on above: Result Comment: Canc elled via OM: Order cancelled - Patient discharged Performed By: #### L 500.2500, L100.0100 ####[facility] [address] [place], [address] NEUT% Normal 47-70 [facility] Comment on above: Result Comment: Canc elled via OM: Order cancelled - Patient discharged Performed By: #### L 500.2500, L100.0100 ####[facility] [address] [place], [address] PLT Normal 150-450 [facility] Comment on above: Result Comment: Canc elled via OM: Order cancelled - Patient discharged Performed By: #### L 500.2500, L100.0100 ####[facility] [address] [place], [address] RBC Normal 4.6-6.2 [facility] Comment on above: Result Comment: Canc elled via OM: Order cancelled - Patient discharged Performed By: #### L 500.2500, L100.0100 ####[facility] [address] [place], [address] RDW CV Normal 11.6-14.6 [facility] Comment on above: Result Comment: Canc elled via OM: Order cancelled - Patient discharged Performed By: #### L 500.2500, L100.0100 ####[facility] [address] [place], [address] RDW SD Normal 35.1-43.9 [facility] Comment on above: Result Comment: Canc elled via OM: Order cancelled - Patient discharged Performed By: #### L 500.2500, L100.0100 ####[facility] [address] [place], [address] WBC Normal 4.4-11.0 [facility] Comment on above: Result Comment: Canc elled via OM: Order cancelled - Patient discharged Performed By: #### L 500.2500, L100.0100 ####[facility] [address] [place], [address] Carbon dioxide, total [Moles /volume] in Central venous bloodOrdered By: Shaan Santos on 12-08-2024 CO2 [Moles/Vol] 21.2 mmol/L 21.0-32.0 [facility] Chloride assayOrdered By: Charlie Santos on 12-08-2024 Chloride [Moles/Vol] 95 mmol/L Low 98-108 [facility] Eosinophil percentageOrdered By: Shaan Santos on 12-08-2024 Eosinophils/100 WBC (Bld) 1.0 % 0-5 [facility] Erythrocyte distribution wid th ratioOrdered By: Shaan Santos on 12-08-2024 Erythrocyte distribution width (RBC) [Ratio] 13.4 % 11.6-14.6 [facility] Erythrocyte distribution wid th standard deviationOrdered By: Shaan Santos on 12-08-2024 Erythrocyte distribution width (RBC) [Ratio] 42.8 fl 35.1-43.9 [facility] Glomerular filtration rate ( GFR) estimation/1.73 sq m using serum, plasma, or whole bOrdered By: Shaan Santos on 12-08-2024 GFR/1.73 sq M.predicted among non-blacks MDRD (S/P/Bld) [Vol rate/Area] 22 mL/min/{1.73_m2} Low >60 [facility] Gl[facility] at [facility] deOrdered By: Alex Sanon on 12-08-2024 Glucose [Mass/Vol] 249 mg/dL High 74-106 [facility] Hematocrit Auto (Bld) [Volum e fraction]Ordered By: Shaan Santos on 12-08-2024 Hematocrit (Bld) [Volume fraction] 39.2 % Low 40-54 [facility] Hemoglobin measurementOrdere d By: Shaan Santos on 12-08-2024 Hemoglobin (Bld) [Mass/Vol] 12.9 g/dL Low 13.0-16.5 [facility] Immature granulocytes/100 WB C Auto (Bld)Ordered By: Shaan Santos on 12-08-2024 Immature granulocytes/100 WBC (Bld) 0.900 % 0.0-0.9 [facility] MCV (mean corpuscular volume ) determinationOrdered By: Shaan Santos on 12-08-2024 MCV (RBC) [Entitic vol] 87.7 fL 80-94 [facility] Mean corpuscular hemoglobin (MCH) determinationOrdered By: Shaan Santos on 12-08-2024 MCH (RBC) [Entitic mass] 28.9 pg 27.0-32.0 [facility] Monocyte percentageOrdered B y: Shaan Santos on 12-08-2024 Monocytes/100 WBC (Bld) 12.1 % High 0-10 [facility] Neutrophil percentageOrdered By: Shaan Santos on 12-08-2024 Neutrophils/100 WBC (Bld) 74.1 % High 47-70 [facility] Platelet countOrdered By: Charlie Santos on 12-08-2024 Platelets (Bld) [#/Vol] 178 10*3/uL 150-450 [facility] Potassium measurement (mass/ volume)Ordered By: Shaan Santos on 12-08-2024 Potassium (Unsp spec) [Mass/Vol] 3.4 mmol/L 3.3-5.1 [facility] RBC Auto (Bld) [#/Vol]Ordere d By: Shaan Santos on 12-08-2024 RBC (Bld) [#/Vol] 4.47 10*6/uL Low 4.6-6.[address] [facility] Serum creatinine measurement (mass/volume)Ordered By: Shaan Santos on 12-08-2024 Creatinine [Mass/Vol] 2.84 mg/dL High 0.70-1.20 [facility] Serum glucose measurement (m ass/volume)Ordered By: Shaan Santos on 12-08-2024 Glucose [Mass/Vol] 178 mg/dL High 70-99 [facility] Serum or plasma calcium francine urement (mass/volume)Ordered By: Shaan Santos on 12-08-2024 Calcium [Mass/Vol] 9.6 mg/dL 7.6-11.0 [facility] Serum or plasma urea nitroge n measurement (mass/volume)Ordered By: Shaan Santos on 12-08-2024 Urea nitrogen [Mass/Vol] 44 mg/dL High 4-19 [facility] Sodium levelOrdered By: Shaan Santos on 12-08-2024 Sodium [Moles/Vol] 134 mmol/L 133-145 [facility] White blood cell (WBC) count Ordered By: Shaan Santos on 12-08-2024 WBC (Bld) [#/Vol] 10.5 10*3/uL 4.4-11.[address] [facility] 12 Lead EKGon 12-07-2024 12 Lead EKG Normal [facility] Absolute lymphocyte countOrd ered By: Juli German on 12-07-2024 Lymphocytes Auto (Unsp spec) [#/Vol] 0.94 10*3/uL 0.83-4.51 [facility] Absolute lymphocyte countOrd ered By: Boyd Rock on 12-07-2024 Lymphocytes Auto (Unsp spec) [#/Vol] 1.19 10*3/uL 0.83-4.51 [facility] Anion gap in Serum or Plasma Ordered By: Juli German on 12-07-2024 Anion gap [Moles/Vol] 18 mmol/L High [facility] Anion gap in Serum or Plasma Ordered By: Boyd Rock on 12-07-2024 Anion gap [Moles/Vol] 16 mmol/L High [facility] Automated lymphocyte count a s percentage of total leukocytesOrdered By: Juli German on 12-07-2024 Lymphocytes/100 WBC Auto (Unsp spec) 7.9 % Low [facility] Automated lymphocyte count a s percentage of total leukocytesOrdered By: Boyd Rock on 12-07-2024 Lymphocytes/100 WBC Auto (Unsp spec) 11.4 % Low - [facility] BUN/creatinine ratioOrdered By: Juli German on 12-07-2024 Urea nitrogen/Creatinine [Mass ratio] 14.5 mg/mg 02-19 [facility] BUN/creatinine ratioOrdered By: Boyd Rock on 12-07-2024 Urea nitrogen/Creatinine [Mass ratio] 15.3 mg/mg 02-19 [facility] Basic Metabolic Profile (BMP )on 12-07-2024 BUN/CRE 14.5 RATIO Normal 02-19 [facility] Comment on above: Performed By: #### L 100.0100, L501.4021, L500.2500 ####[facility] [address] [place], [place], [id number] Calcium [Mass/Vol] 9.5 mg/dL Normal 7.6-11.0 [facility] Comment on above: Performed By: #### L 100.0100, L501.4021, L500.2500 ####[facility] [address] [place], [address] Chloride [Moles/Vol] 94 mmol/L Low 98-108 [facility] Comment on above: Performed By: #### L 100.0100, L501.4021, L500.2500 ####[facility] [address] [place], [address] CO2 [Moles/Vol] 20.9 mmol/L Low 21.0-32.0 [facility] Comment on above: Performed By: #### L 100.0100, L501.4021, L500.2500 ####[facility] [address] [place], [address] Creatinine [Mass/Vol] 2.76 mg/dL High 0.70-1.20 [facility] Comment on above: Performed By: #### L 100.0100, L501.4021, L500.2500 ####[facility] [address] [place], [address] ECRCL 25.62 ml/min Low 50-250 [facility] Comment on above: Performed By: #### L 100.0100, L501.4021, L500.2500 ####[facility] [address] [place], [address] GAP 18 High 5-15 [facility] Comment on above: Performed By: #### L 100.0100, L501.4021, L500.2500 ####[facility] [address] [place], [address] GFR/1.73 sq M.predicted among non-blacks MDRD (S/P/Bld) [Vol rate/Area] 23 mL/min/{1.73_m2} Low >60 [facility] Comment on above: Result Comment: mL/m in/1.73m2 CKD-EPI Creatinine Equation (2020) Performed By: #### L 100.0100, L501.4021, L500.2500 ####[facility] [address] [place], [address] Glucose [Mass/Vol] 209 mg/dL High 70-99 [facility] Comment on above: Performed By: #### L 100.0100, L501.4021, L500.2500 ####[facility] [address] [place], [address] Potassium [Moles/Vol] 4.1 mmol/L Normal 3.3-5.1 [facility] Comment on above: Performed By: #### L 100.0100, L501.4021, L500.2500 ####[facility] [address] [place], [address] Sodium [Moles/Vol] 132 mmol/L Low 133-145 [facility] Comment on above: Performed By: #### L 100.0100, L501.4021, L500.2500 ####[facility] [address] [place], [address] Urea nitrogen [Mass/Vol] 40 mg/dL High 4-19 [facility] Comment on above: Performed By: #### L 100.0100, L501.4021, L500.2500 ####[facility] [address] [place], [address] BUN Normal 4-19 [facility] Comment on above: Result Comment: Canc elled via OM: Order cancelled - Patient discharged Performed By: #### L 500.2500, L100.0100 ####[facility] [address] [place], [address] BUN/CRE Normal -20 [facility] Comment on above: Result Comment: Canc elled via OM: Order cancelled - Patient discharged Performed By: #### L 500.2500, L100.0100 ####[facility] [address] [place], [address] Calcium Normal 7.6-11.0 [facility] Comment on above: Result Comment: Canc elled via OM: Order cancelled - Patient discharged Performed By: #### L 500.2500, L100.0100 ####[facility] [address] [place], [address] CL Normal 98-108 [facility] Comment on above: Result Comment: Canc elled via OM: Order cancelled - Patient discharged Performed By: #### L 500.2500, L100.0100 ####[facility] [address] [place], [address] CO2 Normal 21.0-32.0 [facility] Comment on above: Result Comment: Canc elled via OM: Order cancelled - Patient discharged Performed By: #### L 500.2500, L100.0100 ####[facility] [address] [place], [address] CREAT,SERUM Normal 0.70-1.20 [facility] Comment on above: Result Comment: Canc elled via OM: Order cancelled - Patient discharged Performed By: #### L 500.2500, L100.0100 ####[facility] [address] [place], [address] eGFR Normal >60 [facility] Comment on above: Result Comment: Canc elled via OM: Order cancelled - Patient discharged Performed By: #### L 500.2500, L100.0100 ####[facility] [address] [place], [address] GAP Normal 5-15 [facility] Comment on above: Result Comment: Canc elled via OM: Order cancelled - Patient discharged Performed By: #### L 500.2500, L100.0100 ####[facility] [address] [place], [address] GLU Normal 70-99 [facility] Comment on above: Result Comment: Canc elled via OM: Order cancelled - Patient discharged Performed By: #### L 500.2500, L100.0100 ####[facility] [address] [place], [address] Potassium Normal 3.3-5.1 [facility] Comment on above: Result Comment: Canc elled via OM: Order cancelled - Patient discharged Performed By: #### L 500.2500, L100.0100 ####[facility] [address] [place], [address] Basic Metabolic Profile (BMP) Normal 133-145 [facility] Comment on above: Result Comment: Canc elled via OM: Order cancelled - Patient discharged Performed By: #### L 500.2500, L100.0100 ####[facility] [address] [place], [address] Basophil percentageOrdered B y: Juli German on 12-07-2024 Basophils/100 WBC (Bld) 0.3 % 0-1 [facility] Basophil percentageOrdered B y: Boyd Rock on 12-07-2024 Basophils/100 WBC (Bld) 0.2 % 0-1 [facility] Bedside Glucoseon 12-07-2024 FINGERSTICK GLU 187 mg/dL High 74-106 [facility] Comment on above: Result Comment: WILDA BARROSO OF PATIENT CARE PER NURSING PROTOCOL Performed By: #### L 501.080 ####[facility] [address] [place], [address] Bilirubin, totalOrdered By: Boyd Rock on 12-07-2024 Bilirubin [Mass/Vol] 1.48 mg/dL High 0.00-1.30 [facility] CBC W/Diff, Automatedon Absolute Lymph 0.94 X10 3/uL Normal 0.83-4.51 [facility] Comment on above: Performed By: #### L 100.0100, L501.4021, L500.2500 ####[facility] [address] [place], [address] Absolute Neut 9.4 X10 3/uL High 2.0-7.7 [facility] Comment on above: Performed By: #### L 100.0100, L501.4021, L500.2500 ####[facility] [address] [place], [address] Basophils/100 WBC (Bld) 0.3 % Normal 0-1 [facility] Comment on above: Performed By: #### L 100.0100, L501.4021, L500.2500 ####[facility] [address] [place] [place], [address] Eosinophils/100 WBC (Bld) 0.6 % Normal 0-5 [facility] Comment on above: Performed By: #### L 100.0100, L501.4021, L500.2500 ####[facility] [address] [place], [address] Erythrocyte distribution width (RBC) [Ratio] 13.4 % Normal 11.6-14.6 [facility] Comment on above: Performed By: #### L 100.0100, L501.4021, L500.2500 ####[facility] [address] [place], [address] Hematocrit (Bld) [Volume fraction] 39.1 % Low 40-54 [facility] Comment on above: Performed By: #### L 100.0100, L501.4021, L500.2500 ####[facility] [address] [place], [address] Hemoglobin (Bld) [Mass/Vol] 13.3 g/dL Normal 13.0-16.5 [facility] Comment on above: Performed By: #### L 100.0100, L501.4021, L500.2500 ####[facility] [address] [place], [address] IG% 0.700 Normal 0.0-0.9 [facility] Comment on above: Result Comment: IG% - Immature Granulocytes (promyelocytes, myelocytes andmetamyelocytes) > 1% indicates that a LEFT SHIFT is Present. Performed By: #### L 100.0100, L501.4021, L500.2500 ####[facility] [address] [place], [address] Lymphocytes/100 WBC (Bld) 7.9 % Low 19-41 [facility] Comment on above: Performed By: #### L 100.0100, L501.4021, L500.2500 ####[facility] [address] [place], [address] MCH (RBC) [Entitic mass] 29.3 pg Normal 27.0-32.0 [facility] Comment on above: Performed By: #### L 100.0100, L501.4021, L500.2500 ####[facility] [address] [place], [address] MCHC (RBC) [Mass/Vol] 34.0 g/dL Normal 32-36 [facility] Comment on above: Performed By: #### L 100.0100, L501.4021, L500.2500 ####[facility] [address] [place], [address] MCV (RBC) [Entitic vol] 86.1 fL Normal 80-94 [facility] Comment on above: Performed By: #### L 100.0100, L501.4021, L500.2500 ####[facility] [address] [place], [address] Monocytes/100 WBC (Bld) 11.5 % High 0-10 [facility] Comment on above: Performed By: #### L 100.0100, L501.4021, L500.2500 ####[facility] [address] [place], [address] Neutrophils/100 WBC (Bld) 79.0 % High 47-70 [facility] Comment on above: Performed By: #### L 100.0100, L501.4021, L500.2500 ####[facility] [address] [place], [address] Nucleated RBC (Bld) [#/Vol] 0 10*3/uL Normal 0-5 [facility] Comment on above: Performed By: #### L 100.0100, L501.4021, L500.2500 ####[facility] [address] [place], [address] Platelet mean volume (Bld) [Entitic vol] 13.0 fL High 6.2-12.0 [facility] Comment on above: Performed By: #### L 100.0100, L501.4021, L500.2500 ####[facility] [address] [place], [address] Platelets (Bld) [#/Vol] 190 10*3/uL Normal 150-450 [facility] Comment on above: Performed By: #### L 100.0100, L501.4021, L500.2500 ####[facility] [address] [place], [address] RBC (Bld) [#/Vol] 4.54 10*6/uL Low 4.6-6.[address] [facility] Comment on above: Performed By: #### L 100.0100, L501.4021, L500.2500 ####[facility] [address] [place], [address] RDW SD 41.4 fl Normal 35.1-43.9 [facility] Comment on above: Performed By: #### L 100.0100, L501.4021, L500.2500 ####[facility] [address] [place], [address] WBC (Bld) [#/Vol] 11.9 10*3/uL High 4.4-11.[address] [facility] Comment on above: Performed By: #### L 100.0100, L501.4021, L500.2500 ####[facility] [address] [place], [address] Absolute Neut Normal 2.0-7.7 [facility] Comment on above: Result Comment: Canc elled via OM: Order cancelled - Patient discharged Performed By: #### L 500.2500, L100.0100 ####[facility] [address] [place], [address] HCT Normal 40-54 [facility] Comment on above: Result Comment: Canc elled via OM: Order cancelled - Patient discharged Performed By: #### L 500.2500, L100.0100 ####[facility] [place] [address] [place], [address] HGB Normal 13.0-16.5 [facility] Comment on above: Result Comment: Canc elled via OM: Order cancelled - Patient discharged Performed By: #### L 500.2500, L100.0100 ####[facility] [address] [place], [address] MCH Normal 27.0-32.0 [facility] Comment on above: Result Comment: Canc elled via OM: Order cancelled - Patient discharged Performed By: #### L 500.2500, L100.0100 ####[facility] [address] [place], [address] MCHC Normal 32-36 [facility] Comment on above: Result Comment: Canc elled via OM: Order cancelled - Patient discharged Performed By: #### L 500.2500, L100.0100 ####[facility] [address] [place], [address] MCV Normal 80-94 [facility] Comment on above: Result Comment: Canc elled via OM: Order cancelled - Patient discharged Performed By: #### L 500.2500, L100.0100 ####[facility] [address] [place], [address] NEUT% Normal 47-70 [facility] Comment on above: Result Comment: Canc elled via OM: Order cancelled - Patient discharged Performed By: #### L 500.2500, L100.0100 ####[facility] [address] [place], [address] PLT Normal 150-450 [facility] Comment on above: Result Comment: Canc elled via OM: Order cancelled - Patient discharged Performed By: #### L 500.2500, L100.0100 ####[facility] [address] [place], [address] RBC Normal 4.6-6.2 [facility] Comment on above: Result Comment: Canc elled via OM: Order cancelled - Patient discharged Performed By: #### L 500.2500, L100.0100 ####[facility] [address] [place], [address] RDW CV Normal 11.6-14.6 [facility] Comment on above: Result Comment: Canc elled via OM: Order cancelled - Patient discharged Performed By: #### L 500.2500, L100.0100 ####[facility] [address] [place], [address] RDW SD Normal 35.1-43.9 [facility] Comment on above: Result Comment: Canc elled via OM: Order cancelled - Patient discharged Performed By: #### L 500.2500, L100.0100 ####[facility] [address] [place], [address] WBC Normal 4.4-11.0 [facility] Comment on above: Result Comment: Canc elled via OM: Order cancelled - Patient discharged Performed By: #### L 500.2500, L100.0100 ####[facility] [address] [place], [place], [id number] Calculated very low density lipoprotein (VLDL) cholesterol measurementOrdered By: Boyd Rock on 12-07-2024 Calculated very low density lipoprotein (VLDL) cholesterol measurement 54 mg/dL High 5-40 [facility] Carbon dioxide, total [Moles /volume] in Central venous bloodOrdered By: Juli German on 12-07-2024 CO2 [Moles/Vol] 20.9 mmol/L Low 21.0-32.0 [facility] Carbon dioxide, total [Moles /volume] in Central venous bloodOrdered By: Boyd Rock on 12-07-2024 CO2 [Moles/Vol] 23.3 mmol/L 21.0-32.0 [facility] Chest PA and Lateralon 12-07 Chest PA and Lateral Normal [facility] Chloride assayOrdered By: Miri German on 12-07-2024 Chloride [Moles/Vol] 94 mmol/L Low 98-108 [facility] Chloride assayOrdered By: Susanna Rock on 12-07-2024 Chloride [Moles/Vol] 96 mmol/L Low 98-108 [facility] D-Dimer Quantitative (DVT/PE )on 12-07-2024 D-DIMER QUANT 1.61 FEU/ug/m Invalid Interpretation Code 0.27-0.49 [facility] Comment on above: Result Comment: D-Di ajit ELEVATED (>0.49): Additional studies and clinicalassessments are indicated to conclude diagnosis of:Deep Vein Thrombosis (DVT) or Pulmonary Embolism (PE)CRITICAL VALUE CALLED TO MARIA DEL ROSARIO JOHNSON (ER)12/07/24 1442 Fletcher Cherry.RESULTS READ BACK BY SAME. Performed By: #### L 300.8000 ####[facility] [address] [place], [place], [id number] Emergency Department Summary on 12-07-2024 Emergency Department Summary Normal [facility] Eosinophil percentageOrdered By: Juli German on 12-07-2024 Eosinophils/100 WBC (Bld) 0.6 % 0-5 [facility] Eosinophil percentageOrdered By: Boyd Rock on 12-07-2024 Eosinophils/100 WBC (Bld) 1.3 % 0-5 [facility] Erythrocyte distribution wid th ratioOrdered By: Juli German on 12-07-2024 Erythrocyte distribution width (RBC) [Ratio] 13.4 % 11.6-14.6 [facility] Erythrocyte distribution wid th ratioOrdered By: Boyd Rock on 12-07-2024 Erythrocyte distribution width (RBC) [Ratio] 13.6 % 11.6-14.6 [facility] Erythrocyte distribution wid th standard deviationOrdered By: Juli German on 12-07-2024 Erythrocyte distribution width (RBC) [Ratio] 41.4 fl 35.1-43.9 [facility] Erythrocyte distribution wid th standard deviationOrdered By: Boyd Rock on 12-07-2024 Erythrocyte distribution width (RBC) [Ratio] 43.8 fl 35.1-43.9 [facility] Glomerular filtration rate ( GFR) estimation/1.73 sq m using serum, plasma, or whole bOrdered By: Juli German on 12-07-2024 GFR/1.73 sq M.predicted among non-blacks MDRD (S/P/Bld) [Vol rate/Area] 23 mL/min/{1.73_m2} Low >60 [facility] Glomerular filtration rate ( GFR) estimation/1.73 sq m using serum, plasma, or whole bOrdered By: Boyd Rock on 12-07-2024 GFR/1.73 sq M.predicted among non-blacks MDRD (S/P/Bld) [Vol rate/Area] 25 mL/min/{1.73_m2} Low >60 [facility] H AND P Exam - Hospitaliston 12-07-2024 H&P Exam - Hospitalist Normal [facility] Hematocrit Auto (Bld) [Volum e fraction]Ordered By: Juli German on 12-07-2024 Hematocrit (Bld) [Volume fraction] 39.1 % Low 40-54 [facility] Hematocrit Auto (Bld) [Volum e fraction]Ordered By: Boyd Rock on 12-07-2024 Hematocrit (Bld) [Volume fraction] 37.8 % Low 40-54 [facility] Hemoglobin measurementOrdere d By: Juli German on 12-07-2024 Hemoglobin (Bld) [Mass/Vol] 13.3 g/dL 13.0-16.5 [facility] Hemoglobin measurementOrdere d By: Boyd Rock on 12-07-2024 Hemoglobin (Bld) [Mass/Vol] 12.4 g/dL Low 13.0-16.5 [facility] Immature granulocytes/100 WB C Auto (Bld)Ordered By: Juli German on 12-07-2024 Immature granulocytes/100 WBC (Bld) 0.700 % 0.0-0.9 [facility] Immature granulocytes/100 WB C Auto (Bld)Ordered By: Boyd Rock on 12-07-2024 Immature granulocytes/100 WBC (Bld) 0.600 % 0.0-0.9 [facility] L501.4021on 12-07-2024 Trop T High Sen 7122 ng/L Invalid Interpretation Code <=22 [facility] Comment on above: Result Comment: Crit ical Result(s) Called at 1153: by:?? MONICA RODRIGUEZ. Results read back by same. Performed By: #### L 100.0100, L501.4021, L500.2500 ####[facility] [address] [place], [address] LDL calc ser/plasOrdered By: Boyd Rock on 12-07-2024 Cholesterol in LDL [Mass/Vol] 65 mg/dL [facility] Lung Scan Vent/Perfon 2024 Lung Scan Vent/Perf Normal [facility] MCV (mean corpuscular volume ) determinationOrdered By: Juli German on 12-07-2024 MCV (RBC) [Entitic vol] 86.1 fL 80-94 [facility] MCV (mean corpuscular volume ) determinationOrdered By: Boyd Rock on 12-07-2024 MCV (RBC) [Entitic vol] 87.9 fL 80-94 [facility] Magnesiumon 12-07-2024 Magnesium [Mass/Vol] 2.4 mg/dL High 1.5-2.2 [facility] Comment on above: Performed By: #### L 501.5200 ####[facility] [address] [place], [address] Magnesium measurement (mass/ volume)Ordered By: Juli German on 12-07-2024 Magnesium (Unsp spec) [Mass/Vol] 2.4 mg/dL High 1.5-2.2 [facility] Mean corpuscular hemoglobin (MCH) determinationOrdered By: Juli German on 12-07-2024 MCH (RBC) [Entitic mass] 29.3 pg 27.0-32.0 [facility] Mean corpuscular hemoglobin (MCH) determinationOrdered By: Boyd Rock on 12-07-2024 MCH (RBC) [Entitic mass] 28.8 pg 27.0-32.0 [facility] Monocyte percentageOrdered B y: Juli German on 12-07-2024 Monocytes/100 WBC (Bld) 11.5 % High 0-10 [facility] Monocyte percentageOrdered B y: Boyd Rock on 12-07-2024 Monocytes/100 WBC (Bld) 11.7 % High 0-10 [facility] Natriuretic peptide.B prohor efrem N-Terminal [Mass/volume] in Serum or PlasmaOrdered By: Tor Irizarry on 12-07-2024 Natriuretic peptide.B prohormone N-Terminal [Mass/Vol] 2037 pg/mL High <1800 [facility] Neutrophil percentageOrdered By: Juli German on 12-07-2024 Neutrophils/100 WBC (Bld) 79.0 % High 47-70 [facility] Neutrophil percentageOrdered By: Boyd Rock on 12-07-2024 Neutrophils/100 WBC (Bld) 74.8 % High 47-70 [facility] No Panel InformationOrdered By: Boyd Rock on 12-07-2024 32 U/L <38 [facility] Platelet countOrdered By: Miri German on 12-07-2024 Platelets (Bld) [#/Vol] 190 10*3/uL 150-450 [facility] Platelet countOrdered By: Susanna Rock on 12-07-2024 Platelets (Bld) [#/Vol] 169 10*3/uL 150-450 [facility] Potassium measurement (mass/ volume)Ordered By: Juli German on 12-07-2024 Potassium (Unsp spec) [Mass/Vol] 4.1 mmol/L 3.3-5.1 [facility] Potassium measurement (mass/ volume)Ordered By: Boyd Rock on 12-07-2024 Potassium (Unsp spec) [Mass/Vol] 3.5 mmol/L 3.3-5.1 [facility] Pro- Brain NATRIURETIC PEPTI Sharon 12-07-2024 Natriuretic peptide B (Bld) [Mass/Vol] 2037 pg/mL High <=1800 [facility] Comment on above: Result Comment: Hear t Failure Unlikely: < 300 pg/mLHeart Failure Likely< 50 Years: > 450 pg/mL50-75 Years: > 900 pg/mL>75 Years: > 1800 pg/mL Performed By: #### L 503.7505 ####[facility] [address] [place], [place], [address] RBC Auto (Bld) [#/Vol]Ordere d By: Juli German on 12-07-2024 RBC (Bld) [#/Vol] 4.54 10*6/uL Low 4.6-6.[address] [facility] RBC Auto (Bld) [#/Vol]Ordere d By: Boyd Rock on 12-07-2024 RBC (Bld) [#/Vol] 4.30 10*6/uL Low 4.6-6.[address] [facility] Serum creatinine measurement (mass/volume)Ordered By: Juli German on 12-07-2024 Creatinine [Mass/Vol] 2.76 mg/dL High 0.70-1.20 [facility] Serum creatinine measurement (mass/volume)Ordered By: Boyd Rock on 12-07-2024 Creatinine [Mass/Vol] 2.56 mg/dL High 0.70-1.20 [facility] Serum globulin measurementOr dered By: Boyd Rock on 12-07-2024 Globulin (S) [Mass/Vol] 3.5 g/dL 2.2-4.2 [facility] Serum glucose measurement (m ass/volume)Ordered By: Juli German on 12-07-2024 Glucose [Mass/Vol] 209 mg/dL High 70-99 [facility] Serum glucose measurement (m ass/volume)Ordered By: Boyd Rock on 12-07-2024 Glucose [Mass/Vol] 156 mg/dL High 70-99 [facility] Serum or plasma alanine guerrero otransferase (ALT) measurementOrdered By: Boyd Rock on 12-07-2024 ALT [Catalytic activity/Vol] 28 U/L <47 [facility] Serum or plasma albumin francine urement (mass/volume)Ordered By: Boyd Rock on 12-07-2024 Albumin [Mass/Vol] 4.1 g/dL 3.4-4.8 [facility] Serum or plasma albumin/glob ulin mass ratioOrdered By: Boyd Rock on 12-07-2024 Albumin/Globulin [Mass ratio] 1.2 {ratio} 0.9-2.4 [facility] Serum or plasma alkaline bell sphatase measurementOrdered By: Boyd Rock on 12-07-2024 ALP [Catalytic activity/Vol] 122 U/L 40-129 [facility] Serum or plasma calcium francine urement (mass/volume)Ordered By: Juli German on 12-07-2024 Calcium [Mass/Vol] 9.5 mg/dL 7.6-11.0 [facility] Serum or plasma calcium francine urement (mass/volume)Ordered By: Boyd Rock on 12-07-2024 Calcium [Mass/Vol] 9.4 mg/dL 7.6-11.0 [facility] Serum or plasma cholesterol in HDL measurement (mass/volume)Ordered By: Boyd Rock on 12-07-2024 Cholesterol in HDL [Mass/Vol] 36 mg/dL Low >40 [facility] Serum or plasma cholesterol measurement (mass/volume)Ordered By: Lupetesha Shweta on 12-07-2024 Cholesterol [Mass/Vol] 154 mg/dL <201 [facility] Serum or plasma urea nitroge n measurement (mass/volume)Ordered By: Juli German on 12-07-2024 Urea nitrogen [Mass/Vol] 40 mg/dL High 08-19 [facility] Serum or plasma urea nitroge n measurement (mass/volume)Ordered By: Boyd Rock on 12-07-2024 Urea nitrogen [Mass/Vol] 39 mg/dL High 08-19 [facility] Sodium levelOrdered By: Juli German on 12-07-2024 Sodium [Moles/Vol] 132 mmol/L Low 133-145 [facility] Sodium levelOrdered By: Lupe tesha Shweta on 12-07-2024 Sodium [Moles/Vol] 135 mmol/L 133-145 [facility] TSH DL <= 0.005 mIU/L QnOrde red By: Boyd Garryliane on 12-07-2024 TSH Qn 9.200 uIU/mL High 0.300-4.20 0 [facility] Total proteinOrdered By: Anastacio rivera Shweta on 12-07-2024 Protein [Mass/Vol] 7.5 g/dL 5.9-8.4 [facility] Troponin T HS 2 HRon 025 Trop T High Sen 6442 ng/L Invalid Interpretation Code <=22 [facility] Comment on above: Result Comment: Crit ical Result(s) Called at 1336: by: MONICA PERALTA.??Results read back by same. Performed By: #### L 499.0042 ####[facility] [address] [place], [address] Troponin T HS 4 HRon 025 Trop T High Sen 6556 ng/L Invalid Interpretation Code <=22 [facility] Comment on above: Result Comment: Crit ical Result(s) Called at: 1740 by:??MOISE BECKFORD Results read back by same. Performed By: #### L 499.0043 ####[facility] [address] [place], [place], [id number] Troponin T.cardiac [Mass/vol ume] in Serum or Plasma by High sensitivity methodOrdered By: Juli German on 12-07-2024 Troponin T.cardiac High sensitivity method [Mass/Vol] 6556 ng/L High <22 [facility] Troponin T.cardiac High sensitivity method [Mass/Vol] 6442 ng/L High <22 [facility] Troponin T.cardiac High sensitivity method [Mass/Vol] 7122 ng/L High <22 [facility] White blood cell (WBC) count Ordered By: Juli German on 12-07-2024 WBC (Bld) [#/Vol] 11.9 10*3/uL High 4.4-11.[address] [facility] White blood cell (WBC) count Ordered By: Boyd Rock on 12-07-2024 WBC (Bld) [#/Vol] 10.5 10*3/uL 4.4-11.[address] [facility] 12 Lead EKGon 12-06-2024 12 Lead EKG Normal [facility] Absolute lymphocyte countOrd ered By: Alex Sanon on 12-06-2024 Lymphocytes Auto (Unsp spec) [#/Vol] 1.09 10*3/uL 0.83-4.51 [facility] Anion gap in Serum or Plasma Ordered By: Marcin Araujo on 12-06-2024 Anion gap [Moles/Vol] 17 mmol/L High 5-15 [facility] Automated lymphocyte count a s percentage of total leukocytesOrdered By: Alex Sanon on 12-06-2024 Lymphocytes/100 WBC Auto (Unsp spec) 11.6 % Low 19-41 [facility] BUN/creatinine ratioOrdered By: Marcin Araujo on 12-06-2024 Urea nitrogen/Creatinine [Mass ratio] 16.1 mg/mg 10-20 [facility] Basic Metabolic Profile (BMP )on 12-06-2024 BUN/CRE 16.1 RATIO Normal - [facility] Comment on above: Performed By: #### L 500.2500 ####[facility] [address] [place], [address] Calcium [Mass/Vol] 9.2 mg/dL Normal 7.6-11.0 [facility] Comment on above: Performed By: #### L 500.2500 ####[facility] [address] [place], [address] Chloride [Moles/Vol] 96 mmol/L Low 98-108 [facility] Comment on above: Performed By: #### L 500.2500 ####[facility] [address] [place], [address] CO2 [Moles/Vol] 20.6 mmol/L Low 21.0-32.0 [facility] Comment on above: Performed By: #### L 500.2500 ####[facility] [address] [place], [address] Creatinine [Mass/Vol] 2.46 mg/dL High 0.70-1.20 [facility] Comment on above: Performed By: #### L 500.2500 ####[facility] [address] [place], [address] ECRCL 28.56 ml/min Low 50-250 [facility] Comment on above: Performed By: #### L 500.2500 ####[facility] [address] [place], [address] GAP 17 High 5-15 [facility] Comment on above: Performed By: #### L 500.2500 ####[facility] [address] [place], [address] GFR/1.73 sq M.predicted among non-blacks MDRD (S/P/Bld) [Vol rate/Area] 26 mL/min/{1.73_m2} Low >60 [facility] Comment on above: Result Comment: mL/m in/1.73m2 CKD-EPI Creatinine Equation (2020) Performed By: #### L 500.2500 ####[facility] [address] [place], [address] Glucose [Mass/Vol] 186 mg/dL High 70-99 [facility] Comment on above: Performed By: #### L 500.2500 ####[facility] [address] [place], [address] Potassium [Moles/Vol] 4.1 mmol/L Normal 3.3-5.1 [facility] Comment on above: Performed By: #### L 500.2500 ####[facility] [address] [place], [address] Sodium [Moles/Vol] 133 mmol/L Normal 133-145 [facility] Comment on above: Performed By: #### L 500.2500 ####[facility] [address] [place], [address] Urea nitrogen [Mass/Vol] 40 mg/dL High 4-19 [facility] Comment on above: Performed By: #### L 500.2500 ####[facility] [address] [place], [address] BUN/CRE 17.0 RATIO Normal 10-20 [facility] Comment on above: Performed By: #### L 501.2300, L501.5200, L500.2500, L100.0100 ####[facility] [address] [place], [address] Calcium [Mass/Vol] 9.0 mg/dL Normal 7.6-11.0 [facility] Comment on above: Performed By: #### L 501.2300, L501.5200, L500.2500, L100.0100 ####[facility] [address] [place], [address] Chloride [Moles/Vol] 97 mmol/L Low 98-108 [facility] Comment on above: Performed By: #### L 501.2300, L501.5200, L500.2500, L100.0100 ####[facility] [address] [place], [address] CO2 [Moles/Vol] 21.9 mmol/L Normal 21.0-32.0 [facility] Comment on above: Performed By: #### L 501.2300, L501.5200, L500.2500, L100.0100 ####[facility] [address] [place], [address] Creatinine [Mass/Vol] 2.53 mg/dL High 0.70-1.20 [facility] Comment on above: Performed By: #### L 501.2300, L501.5200, L500.2500, L100.0100 ####[facility] [address] [place], [address] ECRCL 1.34 ml/min Invalid Interpretation Code 50-250 [facility] Comment on above: Performed By: #### L 501.2300, L501.5200, L500.2500, L100.0100 ####[facility] [address] [place], [address] GAP 17 High 5-15 [facility] Comment on above: Performed By: #### L 501.2300, L501.5200, L500.2500, L100.0100 ####[facility] [address] [place], [address] GFR/1.73 sq M.predicted among non-blacks MDRD (S/P/Bld) [Vol rate/Area] 25 mL/min/{1.73_m2} Low >60 [facility] Comment on above: Result Comment: mL/m in/1.73m2 CKD-EPI Creatinine Equation (2020) Performed By: #### L 501.2300, L501.5200, L500.2500, L100.0100 ####[facility] [address] [place], [address] Glucose [Mass/Vol] 161 mg/dL High 70-99 [facility] Comment on above: Performed By: #### L 501.2300, L501.5200, L500.2500, L100.0100 ####[facility] [address] [place], [address] Potassium [Moles/Vol] 3.5 mmol/L Normal 3.3-5.1 [facility] Comment on above: Performed By: #### L 501.2300, L501.5200, L500.2500, L100.0100 ####[facility] [address] [place], [address] Sodium [Moles/Vol] 135 mmol/L Normal 133-145 [facility] Comment on above: Performed By: #### L 501.2300, L501.5200, L500.2500, L100.0100 ####[facility] [address] [place], [address] Urea nitrogen [Mass/Vol] 43 mg/dL High 4-19 [facility] Comment on above: Performed By: #### L 501.2300, L501.5200, L500.2500, L100.0100 ####[facility] [address] [place], [address] Basophil percentageOrdered B y: Alex Sanon on 12-06-2024 Basophils/100 WBC (Bld) 0.2 % 0-1 [facility] Bedside Glucoseon 12-06-2024 FINGERSTICK GLU 197 mg/dL High 74-106 [facility] Comment on above: Result Comment: WILDA BARROSO OF PATIENT CARE PER NURSING PROTOCOL Performed By: #### L 501.080 ####[facility] [address] [place], [address] FINGERSTICK GLU 165 mg/dL High 74-106 [facility] Comment on above: Result Comment: WILDA BARROSO OF PATIENT CARE PER NURSING PROTOCOL Performed By: #### L 501.080 ####[facility] [address] [place], [address] CBC W/Diff, Automatedon 08-0 6-2024 Absolute Lymph 1.09 X10 3/uL Normal 0.83-4.51 [facility] Comment on above: Performed By: #### L 501.2300, L501.5200, L500.2500, L100.0100 ####[facility] [address] [place], [address] Absolute Neut 6.8 X10 3/uL Normal 2.0-7.7 [facility] Comment on above: Performed By: #### L 501.2300, L501.5200, L500.2500, L100.0100 ####[facility] [address] [place], [address] Basophils/100 WBC (Bld) 0.2 % Normal 0-1 [facility] Comment on above: Performed By: #### L 501.2300, L501.5200, L500.2500, L100.0100 ####[facility] [address] [place], [address] Eosinophils/100 WBC (Bld) 2.0 % Normal 0-5 [facility] Comment on above: Performed By: #### L 501.2300, L501.5200, L500.2500, L100.0100 ####[facility] [address] [place], [address] Erythrocyte distribution width (RBC) [Ratio] 13.6 % Normal 11.6-14.6 [facility] Comment on above: Performed By: #### L 501.2300, L501.5200, L500.2500, L100.0100 ####[facility] [address] [place], [address] Hematocrit (Bld) [Volume fraction] 35.0 % Low 40-54 [facility] Comment on above: Performed By: #### L 501.2300, L501.5200, L500.2500, L100.0100 ####[facility] [address] [place], [address] Hemoglobin (Bld) [Mass/Vol] 11.6 g/dL Low 13.0-16.5 [facility] Comment on above: Performed By: #### L 501.2300, L501.5200, L500.2500, L100.0100 ####[facility] [address] [place], [address] IG% 0.600 Normal 0.0-0.9 [facility] Comment on above: Result Comment: IG% - Immature Granulocytes (promyelocytes, myelocytes andmetamyelocytes) > 1% indicates that a LEFT SHIFT is Present. Performed By: #### L 501.2300, L501.5200, L500.2500, L100.0100 ####[facility] [address] [place], [address] Lymphocytes/100 WBC (Bld) 11.6 % Low 19-41 [facility] Comment on above: Performed By: #### L 501.2300, L501.5200, L500.2500, L100.0100 ####[facility] [address] [place], [address] MCH (RBC) [Entitic mass] 29.1 pg Normal 27.0-32.0 [facility] Comment on above: Performed By: #### L 501.2300, L501.5200, L500.2500, L100.0100 ####[facility] [address] [place], [address] MCHC (RBC) [Mass/Vol] 33.1 g/dL Normal 32-36 [facility] Comment on above: Performed By: #### L 501.2300, L501.5200, L500.2500, L100.0100 ####[facility] [address] [place], [address] MCV (RBC) [Entitic vol] 87.9 fL Normal 80-94 [facility] Comment on above: Performed By: #### L 501.2300, L501.5200, L500.2500, L100.0100 ####[facility] [address] [place], [address] Monocytes/100 WBC (Bld) 12.9 % High 0-10 [facility] Comment on above: Performed By: #### L 501.2300, L501.5200, L500.2500, L100.0100 ####[facility] [address] [place], [address] Neutrophils/100 WBC (Bld) 72.7 % High 47-70 [facility] Comment on above: Performed By: #### L 501.2300, L501.5200, L500.2500, L100.0100 ####[facility] [address] [place], [address] Nucleated RBC (Bld) [#/Vol] 0 10*3/uL Normal 0-5 [facility] Comment on above: Performed By: #### L 501.2300, L501.5200, L500.2500, L100.0100 ####[facility] [address] [place], [address] Platelet mean volume (Bld) [Entitic vol] 12.9 fL High 6.2-12.0 [facility] Comment on above: Performed By: #### L 501.2300, L501.5200, L500.2500, L100.0100 ####[facility] [address] [place], [address] Platelets (Bld) [#/Vol] 140 10*3/uL Low 150-450 [facility] Comment on above: Performed By: #### L 501.2300, L501.5200, L500.2500, L100.0100 ####[facility] [address] [place], [address] RBC (Bld) [#/Vol] 3.98 10*6/uL Low 4.6-6.[address] [facility] Comment on above: Performed By: #### L 501.2300, L501.5200, L500.2500, L100.0100 ####[facility] [address] [place], [address] RDW SD 44.0 fl High 35.1-43.9 [facility] Comment on above: Performed By: #### L 501.2300, L501.5200, L500.2500, L100.0100 ####[facility] [address] [place], [address] WBC (Bld) [#/Vol] 9.4 10*3/uL Normal 4.4-11.0 [facility] Comment on above: Performed By: #### L 501.2300, L501.5200, L500.2500, L100.0100 ####[facility] [address] [place], [address] Carbon dioxide, total [Moles /volume] in Central venous bloodOrdered By: Lexington Gayle on 12-06-2024 CO2 [Moles/Vol] 20.6 mmol/L Low 21.0-32.0 [facility] Chloride assayOrdered By: Cy ril Gayle on 12-06-2024 Chloride [Moles/Vol] 96 mmol/L Low 98-108 [facility] Electrocardiogram reportOrde red By: Marcin Araujo on 12-06-2024 EKG study [facility] Work Phone: [phone] EKG study [facility] Work Phone: [phone] Eosinophil percentageOrdered By: Alex Sanon on 12-06-2024 Eosinophils/100 WBC (Bld) 2.0 % 0-5 [facility] Erythrocyte distribution wid th ratioOrdered By: Alex Sanon on 12-06-2024 Erythrocyte distribution width (RBC) [Ratio] 13.6 % 11.6-14.6 [facility] Erythrocyte distribution wid th standard deviationOrdered By: Alex Sanon on 12-06-2024 Erythrocyte distribution width (RBC) [Ratio] 44.0 fl High 35.1-43.9 [facility] Glomerular filtration rate ( GFR) estimation/1.73 sq m using serum, plasma, or whole bOrdered By: Marcin Araujo on 12-06-2024 GFR/1.73 sq M.predicted among non-blacks MDRD (S/P/Bld) [Vol rate/Area] 26 mL/min/{1.73_m2} Low >60 [facility] deOrdered By: Alex Sanon on 12-06-2024 Glucose [Mass/Vol] 197 mg/dL High 74-106 [facility] Hematocrit Auto (Bld) [Volum e fraction]Ordered By: Alex Sanon on 12-06-2024 Hematocrit (Bld) [Volume fraction] 35.0 % Low 40-54 [facility] Hemoglobin measurementOrdere d By: Alex Sanon on 12-06-2024 Hemoglobin (Bld) [Mass/Vol] 11.6 g/dL Low 13.0-16.5 [facility] Immature granulocytes/100 WB C Auto (Bld)Ordered By: Alex Sanon on 12-06-2024 Immature granulocytes/100 WBC (Bld) 0.600 % 0.0-0.9 [facility] MCV (mean corpuscular volume ) determinationOrdered By: Alex Sanon on 12-06-2024 MCV (RBC) [Entitic vol] 87.9 fL 80-94 [facility] Magnesiumon 12-06-2024 Magnesium [Mass/Vol] 2.4 mg/dL High 1.5-2.2 [facility] Comment on above: Performed By: #### L 501.2300, L501.5200, L500.2500, L100.0100 ####[facility] [address] [place], [place], [address] Magnesium measurement (mass/ volume)Ordered By: Alex Sanon on 12-06-2024 Magnesium (Unsp spec) [Mass/Vol] 2.4 mg/dL High 1.5-2.2 [facility] Mean corpuscular hemoglobin (MCH) determinationOrdered By: Alex Sanon on 12-06-2024 MCH (RBC) [Entitic mass] 29.1 pg 27.0-32.0 [facility] Monocyte percentageOrdered B y: Alex Sanon on 12-06-2024 Monocytes/100 WBC (Bld) 12.9 % High 0-10 [facility] Neutrophil percentageOrdered By: Alex Sanon on 12-06-2024 Neutrophils/100 WBC (Bld) 72.7 % High 47-70 [facility] Phosphoruson 12-06-2024 Phosphate [Mass/Vol] 2.9 mg/dL Normal 2.7-4.5 [facility] Comment on above: Performed By: #### L 501.2300, L501.5200, L500.2500, L100.0100 ####[facility] [address] [place], [place], [id number] Platelet countOrdered By: Danis Sanon on 12-06-2024 Platelets (Bld) [#/Vol] 140 10*3/uL Low 150-450 [facility] Potassium measurement (mass/ volume)Ordered By: Marcin Araujo on 12-06-2024 Potassium (Unsp spec) [Mass/Vol] 4.1 mmol/L 3.3-5.1 [facility] RBC Auto (Bld) [#/Vol]Ordere d By: Alex Sanon on 12-06-2024 RBC (Bld) [#/Vol] 3.98 10*6/uL Low 4.6-6.[address] [facility] Serum creatinine measurement (mass/volume)Ordered By: Marcin Araujo on 12-06-2024 Creatinine [Mass/Vol] 2.46 mg/dL High 0.70-1.20 [facility] Serum glucose measurement (m ass/volume)Ordered By: Marcin Gayle on 12-06-2024 Glucose [Mass/Vol] 186 mg/dL High 70-99 [facility] Serum or plasma calcium francine urement (mass/volume)Ordered By: Marcin Araujo on 12-06-2024 Calcium [Mass/Vol] 9.2 mg/dL 7.6-11.0 [facility] Serum or plasma urea nitroge n measurement (mass/volume)Ordered By: Marcin Araujo on 12-06-2024 Urea nitrogen [Mass/Vol] 40 mg/dL High 4-19 [facility] Sodium levelOrdered By: Madeline Araujo on 12-06-2024 Sodium [Moles/Vol] 133 mmol/L 133-145 [facility] White blood cell (WBC) count Ordered By: Alex Sanon on 12-06-2024 WBC (Bld) [#/Vol] 9.4 10*3/uL 4.4-11.0 [facility] Anion gap in Serum or Plasma Ordered By: Abraham Ridley on 12-05-2024 Anion gap [Moles/Vol] 19 mmol/L High 5-15 [facility] BUN/creatinine ratioOrdered By: Abraham Ridley on 12-05-2024 Urea nitrogen/Creatinine [Mass ratio] 18.2 mg/mg 10- [facility] Basic Metabolic Profile (BMP )on 12-05-2024 BUN/CRE 18.2 RATIO Normal - [facility] Comment on above: Performed By: #### L 500.2500 ####[facility] [address] [place], [place], [id number] Calcium [Mass/Vol] 9.1 mg/dL Normal 7.6-11.0 [facility] Comment on above: Performed By: #### L 500.2500 ####[facility] [address] [place], [address] Chloride [Moles/Vol] 96 mmol/L Low 98-108 [facility] Comment on above: Performed By: #### L 500.2500 ####[facility] [address] [place], [address] CO2 [Moles/Vol] 22.4 mmol/L Normal 21.0-32.0 [facility] Comment on above: Performed By: #### L 500.2500 ####[facility] [address] [place], [address] Creatinine [Mass/Vol] 2.57 mg/dL High 0.70-1.20 [facility] Comment on above: Performed By: #### L 500.2500 ####[facility] [address] [place], [address] ECRCL 27.41 ml/min Low 50-250 [facility] Comment on above: Performed By: #### L 500.2500 ####[facility] [address] [place], [address] GAP 19 High 5-15 [facility] Comment on above: Performed By: #### L 500.2500 ####[facility] [address] [place], [address] GFR/1.73 sq M.predicted among non-blacks MDRD (S/P/Bld) [Vol rate/Area] 25 mL/min/{1.73_m2} Low >60 [facility] Comment on above: Result Comment: mL/m in/1.73m2 CKD-EPI Creatinine Equation (2020) Performed By: #### L 500.2500 ####[facility] [address] [place], [address] Glucose [Mass/Vol] 155 mg/dL High 70-99 [facility] Comment on above: Performed By: #### L 500.2500 ####[facility] [address] [place], [address] Potassium [Moles/Vol] 3.2 mmol/L Low 3.3-5.1 [facility] Comment on above: Performed By: #### L 500.2500 ####[facility] [address] [place], [address] Sodium [Moles/Vol] 137 mmol/L Normal 133-145 [facility] Comment on above: Performed By: #### L 500.2500 ####[facility] [address] [place], [address] Urea nitrogen [Mass/Vol] 47 mg/dL High 4-19 [facility] Comment on above: Performed By: #### L 500.2500 ####[facility] [address] [place], [address] Bedside Glucoseon 12-05-2024 FINGERSTICK GLU 196 mg/dL High 74-106 [facility] Comment on above: Result Comment: WILDA GEMENT OF PATIENT CARE PER NURSING PROTOCOL Performed By: #### L 501.080 ####[facility] [address] [place], [address] FINGERSTICK GLU 183 mg/dL High 74-106 [facility] Comment on above: Result Comment: WILDA GEMENT OF PATIENT CARE PER NURSING PROTOCOL Performed By: #### L 501.080 ####[facility] [address] [place], [address] FINGERSTICK GLU 194 mg/dL High 74-106 [facility] Comment on above: Result Comment: WILDA GEMENT OF PATIENT CARE PER NURSING PROTOCOL Performed By: #### L 501.080 ####[facility] [address] [place], [address] FINGERSTICK GLU 190 mg/dL High 74-106 [facility] Comment on above: Result Comment: WILDA GEMENT OF PATIENT CARE PER NURSING PROTOCOL Performed By: #### L 501.080 ####[facility] [address] [place], [address] Carbon dioxide, total [Moles /volume] in Central venous bloodOrdered By: Abraham Ridley on 12-05-2024 CO2 [Moles/Vol] 22.4 mmol/L 21.0-32.0 [facility] Chloride assayOrdered By: Jaylen Ridley on 12-05-2024 Chloride [Moles/Vol] 96 mmol/L Low 98-108 [facility] Glomerular filtration rate ( GFR) estimation/1.73 sq m using serum, plasma, or whole bOrdered By: Abraham Ridley on 12-05-2024 GFR/1.73 sq M.predicted among non-blacks MDRD (S/P/Bld) [Vol rate/Area] 25 mL/min/{1.73_m2} Low >60 [facility] Gl[facility] measurement at [facility] deOrdered By: Abraham Ridley on 12-05-2024 Glucose [Mass/Vol] 190 mg/dL High 74-106 [facility] Potassium measurement (mass/ volume)Ordered By: Abraham Ridley on 12-05-2024 Potassium (Unsp spec) [Mass/Vol] 3.2 mmol/L Low 3.3-5.1 [facility] Serum creatinine measurement (mass/volume)Ordered By: Abraham Ridley on 12-05-2024 Creatinine [Mass/Vol] 2.57 mg/dL High 0.70-1.20 [facility] Serum glucose measurement (m ass/volume)Ordered By: Abraham Ridley on 12-05-2024 Glucose [Mass/Vol] 155 mg/dL High 70-99 [facility] Serum or plasma calcium francine urement (mass/volume)Ordered By: Abraham Ridley on 12-05-2024 Calcium [Mass/Vol] 9.1 mg/dL 7.6-11.0 [facility] Serum or plasma urea nitroge n measurement (mass/volume)Ordered By: Abraham Ridley on 12-05-2024 Urea nitrogen [Mass/Vol] 47 mg/dL High 4-19 [facility] Sodium levelOrdered By: Isael Ridley on 12-05-2024 Sodium [Moles/Vol] 137 mmol/L 133-145 [facility] 12 Lead EKGon 12-04-2024 12 Lead EKG Normal [facility] Absolute lymphocyte countOrd ered By: Ramonita Herron on 12-04-2024 Lymphocytes Auto (Unsp spec) [#/Vol] 1.07 10*3/uL 0.83-4.51 [facility] Automated lymphocyte count a s percentage of total leukocytesOrdered By: Ramonita Herron on 12-04-2024 Lymphocytes/100 WBC Auto (Unsp spec) 11.1 % Low 19-41 [facility] Basic Metabolic Profile (BMP )on 12-04-2024 BUN/CRE 19.4 RATIO Normal 10-20 [facility] Comment on above: Performed By: #### L 500.2500, L100.0100 ####[facility] [address] [place], [address] Calcium [Mass/Vol] 9.2 mg/dL Normal 7.6-11.0 [facility] Comment on above: Performed By: #### L 500.2500, L100.0100 ####[facility] [address] [place], [address] Chloride [Moles/Vol] 96 mmol/L Low 98-108 [facility] Comment on above: Performed By: #### L 500.2500, L100.0100 ####[facility] [address] [place], [address] CO2 [Moles/Vol] 21.4 mmol/L Normal 21.0-32.0 [facility] Comment on above: Performed By: #### L 500.2500, L100.0100 ####[facility] [address] [place], [address] Creatinine [Mass/Vol] 2.53 mg/dL High 0.70-1.20 [facility] Comment on above: Performed By: #### L 500.2500, L100.0100 ####[facility] [address] [place], [address] ECRCL 28.47 ml/min Low 50-250 [facility] Comment on above: Performed By: #### L 500.2500, L100.0100 ####[facility] [address] [place], [address] GAP 19 High 5-15 [facility] Comment on above: Performed By: #### L 500.2500, L100.0100 ####[facility] [address] [place], [address] GFR/1.73 sq M.predicted among non-blacks MDRD (S/P/Bld) [Vol rate/Area] 25 mL/min/{1.73_m2} Low >60 [facility] Comment on above: Result Comment: mL/m in/1.73m2 CKD-EPI Creatinine Equation (2020) Performed By: #### L 500.2500, L100.0100 ####[facility] [address] [place], [address] Glucose [Mass/Vol] 140 mg/dL High 70-99 [facility] Comment on above: Performed By: #### L 500.2500, L100.0100 ####[facility] [address] [place], [address] Potassium [Moles/Vol] 3.1 mmol/L Low 3.3-5.1 [facility] Comment on above: Performed By: #### L 500.2500, L100.0100 ####[facility] [address] [place], [address] Sodium [Moles/Vol] 137 mmol/L Normal 133-145 [facility] Comment on above: Performed By: #### L 500.2500, L100.0100 ####[facility] [address] [place], [address] Urea nitrogen [Mass/Vol] 49 mg/dL High 4-19 [facility] Comment on above: Performed By: #### L 500.2500, L100.0100 ####[facility] [address] [place], [address] Basophil percentageOrdered B y: Ramonita Herron on 12-04-2024 Basophils/100 WBC (Bld) 0.3 % 0-1 [facility] Bedside Glucoseon 12-04-2024 FINGERSTICK GLU 151 mg/dL High 74-106 [facility] Comment on above: Result Comment: WILDA GEMENT OF PATIENT CARE PER NURSING PROTOCOL Performed By: #### L 501.080 ####[facility] [address] [place], [address] FINGERSTICK GLU 147 mg/dL High 74-106 [facility] Comment on above: Result Comment: WILDA GEMENT OF PATIENT CARE PER NURSING PROTOCOL Performed By: #### L 501.080 ####[facility] [address] [place], [address] FINGERSTICK GLU 207 mg/dL High 74-106 [facility] [facility] Comment on above: Result Comment: WILDA GEMENT OF PATIENT CARE PER NURSING PROTOCOL Performed By: #### L 501.080 ####[facility] [address] [place], [address] FINGERSTICK GLU 147 mg/dL High 74-106 [facility] Comment on above: Result Comment: WILDA GEMENT OF PATIENT CARE PER NURSING PROTOCOL Performed By: #### L 501.080 ####[facility] [address] [place], [address] CBC W/Diff, Automatedon 08-0 Absolute Lymph 1.07 X10 3/uL Normal 0.83-4.51 [facility] Comment on above: Performed By: #### L 500.2500, L100.0100 ####[facility] [address] [place], [address] Absolute Neut 7.1 X10 3/uL Normal 2.0-7.7 [facility] Comment on above: Performed By: #### L 500.2500, L100.0100 ####[facility] [address] [place], [address] Basophils/100 WBC (Bld) 0.3 % Normal 0-1 [facility] Comment on above: Performed By: #### L 500.2500, L100.0100 ####[facility] [address] [place], [address] Eosinophils/100 WBC (Bld) 2.2 % Normal 0-5 [facility] Comment on above: Performed By: #### L 500.2500, L100.0100 ####[facility] [address] [place], [address] Erythrocyte distribution width (RBC) [Ratio] 13.7 % Normal 11.6-14.6 [facility] Comment on above: Performed By: #### L 500.2500, L100.0100 ####[facility] [address] [place], [address] Hematocrit (Bld) [Volume fraction] 31.5 % Low 40-54 [facility] Comment on above: Performed By: #### L 500.2500, L100.0100 ####[facility] [address] [place], [address] Hemoglobin (Bld) [Mass/Vol] 10.5 g/dL Low 13.0-16.5 [facility] Comment on above: Performed By: #### L 500.2500, L100.0100 ####[facility] [address] [place], [address] IG% 0.600 Normal 0.0-0.9 [facility] Comment on above: Result Comment: IG% - Immature Granulocytes (promyelocytes, myelocytes andmetamyelocytes) > 1% indicates that a LEFT SHIFT is Present. Performed By: #### L 500.2500, L100.0100 ####[facility] [address] [place], [address] Lymphocytes/100 WBC (Bld) 11.1 % Low 19-41 [facility] Comment on above: Performed By: #### L 500.2500, L100.0100 ####[facility] [address] [place], [address] MCH (RBC) [Entitic mass] 29.2 pg Normal 27.0-32.0 [facility] Comment on above: Performed By: #### L 500.2500, L100.0100 ####[facility] [address] [place], [address] MCHC (RBC) [Mass/Vol] 33.3 g/dL Normal 32-36 [facility] Comment on above: Performed By: #### L 500.2500, L100.0100 ####[facility] [address] [place], [address] MCV (RBC) [Entitic vol] 87.7 fL Normal 80-94 [facility] Comment on above: Performed By: #### L 500.2500, L100.0100 ####[facility] [address] [place], [address] Monocytes/100 WBC (Bld) 11.9 % High 0-10 [facility] Comment on above: Performed By: #### L 500.2500, L100.0100 ####[facility] [address] [place], [address] Neutrophils/100 WBC (Bld) 73.9 % High 47-70 [facility] Comment on above: Performed By: #### L 500.2500, L100.0100 ####[facility] [address] [place], [address] Nucleated RBC (Bld) [#/Vol] 0 10*3/uL Normal 0-5 [facility] Comment on above: Performed By: #### L 500.2500, L100.0100 ####[facility] [address] [place], [address] Platelet mean volume (Bld) [Entitic vol] 13.7 fL High 6.2-12.0 [facility] Comment on above: Performed By: #### L 500.2500, L100.0100 ####[facility] [address] [place], [address] Platelets (Bld) [#/Vol] 126 10*3/uL Low 150-450 [facility] Comment on above: Performed By: #### L 500.2500, L100.0100 ####[facility] [address] [place], [address] RBC (Bld) [#/Vol] 3.59 10*6/uL Low 4.6-6.[address] [facility] Comment on above: Performed By: #### L 500.2500, L100.0100 ####[facility] [address] [place], [address] RDW SD 43.8 fl Normal 35.1-43.9 [facility] Comment on above: Performed By: #### L 500.2500, L100.0100 ####[facility] [address] [place], [address] WBC (Bld) [#/Vol] 9.7 10*3/uL Normal 4.4-11.0 [facility] Comment on above: Performed By: #### L 500.2500, L100.0100 ####[facility] [address] [place], [address] Cardiac catheterization repo rtOrdered By: Marcin Araujo on 12-04-2024 Cardiac catheterization study [facility] Work Phone: Electrocardiogram reportOrde red By: Macrin Araujo on 12-04-2024 EKG study [facility] Work Phone: Eosinophil percentageOrdered By: Ramonita Herron on 12-04-2024 Eosinophils/100 WBC (Bld) 2.2 % 0-5 [facility] Erythrocyte distribution wid th ratioOrdered By: Ramonita Herron on 12-04-2024 Erythrocyte distribution width (RBC) [Ratio] 13.7 % 11.6-14.6 [facility] Erythrocyte distribution wid th standard deviationOrdered By: Ramonita Herron on 12-04-2024 Erythrocyte distribution width (RBC) [Ratio] 43.8 fl 35.1-43.9 [facility] Hematocrit Auto (Bld) [Volum e fraction]Ordered By: Ramonita Herron on 12-04-2024 Hematocrit (Bld) [Volume fraction] 31.5 % Low 40-54 [facility] Hemoglobin measurementOrdere d By: Ramonita Herron on 12-04-2024 Hemoglobin (Bld) [Mass/Vol] 10.5 g/dL Low 13.0-16.5 [facility] Immature granulocytes/100 WB C Auto (Bld)Ordered By: Ramonita Herron on 12-04-2024 Immature granulocytes/100 WBC (Bld) 0.600 % 0.0-0.9 [facility] MCV (mean corpuscular volume ) determinationOrdered By: Ramonita Herron on 12-04-2024 MCV (RBC) [Entitic vol] 87.7 fL 80-94 [facility] Mean corpuscular hemoglobin (MCH) determinationOrdered By: Ramonita Herron on 12-04-2024 MCH (RBC) [Entitic mass] 29.2 pg 27.0-32.0 [facility] Monocyte percentageOrdered B y: Ramonita Herron on 12-04-2024 Monocytes/100 WBC (Bld) 11.9 % High 0-10 [facility] Neutrophil percentageOrdered By: Ramonita Herron on 12-04-2024 Neutrophils/100 WBC (Bld) 73.9 % High 47-70 [facility] Platelet countOrdered By: Parish Herron on 12-04-2024 Platelets (Bld) [#/Vol] 126 10*3/uL Low 150-450 [facility] RBC Auto (Bld) [#/Vol]Ordere d By: Ramonita Herron on 12-04-2024 RBC (Bld) [#/Vol] 3.59 10*6/uL Low 4.6-6.[address] [facility] White blood cell (WBC) count Ordered By: Ramonita Herron on 12-04-2024 WBC (Bld) [#/Vol] 9.7 10*3/uL 4.4-11.0 [facility] 12 Lead EKGon 12-03-2024 12 Lead EKG Normal [facility] Bedside Glucoseon 12-03-2024 FINGERSTICK GLU 153 mg/dL High 74-106 [facility] Comment on above: Result Comment: WILDA GEMENT OF PATIENT CARE PER NURSING PROTOCOL Performed By: #### L 501.080 ####[facility] [address] [place], [address] FINGERSTICK GLU 156 mg/dL High [facility]106 [facility] Comment on above: Result Comment: WILDA GEMENT OF PATIENT CARE PER NURSING PROTOCOL Performed By: #### L 501.080 ####[facility] [address] [place], [address] FINGERSTICK GLU 226 mg/dL High [facility]106 [facility] Comment on above: Result Comment: WILDA GEMENT OF PATIENT CARE PER NURSING PROTOCOL Performed By: #### L 501.080 ####[facility] [address] [place], [address] FINGERSTICK GLU 140 mg/dL High -106 [facility] Comment on above: Result Comment: WILDA GEMENT OF PATIENT CARE PER NURSING PROTOCOL Performed By: #### L 501.080 ####[facility] [address] [place], [address] FINGERSTICK GLU 200 mg/dL High [facility]106 [facility] Comment on above: Result Comment: WILDA GEMENT OF PATIENT CARE PER NURSING PROTOCOL Performed By: #### L 501.080 ####[facility] [address] [place], [address] Bilirubin Test strip Ql (U)O rdered By: Alex Resendez on 12-03-2024 Bilirubin Ql (U) Negative Negative [facility] Bilirubin, totalOrdered By: Alex Resendez on 12-03-2024 Bilirubin [Mass/Vol] 1.27 mg/dL 0.00-1.30 [facility] CBC W/Diff, Automatedon Absolute Lymph 0.95 X10 3/uL Normal 0.83-4.51 [facility] Comment on above: Performed By: #### L 100.0100, L500.4050, L501.2300, L501.5200 ####[facility] [address] [place], [address] Absolute Neut 6.9 X10 3/uL Normal 2.0-7.7 [facility] Comment on above: Performed By: #### L 100.0100, L500.4050, L501.2300, L501.5200 ####[facility] [address] [place], [address] Basophils/100 WBC (Bld) 0.2 % Normal 0-1 [facility] Comment on above: Performed By: #### L 100.0100, L500.4050, L501.2300, L501.5200 ####[facility] [address] [place], [address] Eosinophils/100 WBC (Bld) 1.8 % Normal 0-5 [facility] Comment on above: Performed By: #### L 100.0100, L500.4050, L501.2300, L501.5200 ####[facility] [address] [place], [address] Erythrocyte distribution width (RBC) [Ratio] 14.2 % Normal 11.6-14.6 [facility] Comment on above: Performed By: #### L 100.0100, L500.4050, L501.2300, L501.5200 ####[facility] [address] [place], [address] Hematocrit (Bld) [Volume fraction] 31.8 % Low 40-54 [facility] Comment on above: Performed By: #### L 100.0100, L500.4050, L501.2300, L501.5200 ####[facility] [address] [place], [address] Hemoglobin (Bld) [Mass/Vol] 10.3 g/dL Low 13.0-16.5 [facility] Comment on above: Performed By: #### L 100.0100, L500.4050, L501.2300, L501.5200 ####[facility] [address] [place], [address] IG% 0.600 Normal 0.0-0.9 [facility] Comment on above: Result Comment: IG% - Immature Granulocytes (promyelocytes, myelocytes andmetamyelocytes) > 1% indicates that a LEFT SHIFT is Present. Performed By: #### L 100.0100, L500.4050, L501.2300, L501.5200 ####[facility] [address] [place], [address] Lymphocytes/100 WBC (Bld) 10.5 % Low 19-41 [facility] Comment on above: Performed By: #### L 100.0100, L500.4050, L501.2300, L501.5200 ####[facility] [address] [place], [address] MCH (RBC) [Entitic mass] 29.3 pg Normal 27.0-32.0 [facility] Comment on above: Performed By: #### L 100.0100, L500.4050, L501.2300, L501.5200 ####[facility] [address] [place], [address] MCHC (RBC) [Mass/Vol] 32.4 g/dL Normal 32-36 [facility] Comment on above: Performed By: #### L 100.0100, L500.4050, L501.2300, L501.5200 ####[facility] [address] [place], [address] MCV (RBC) [Entitic vol] 90.3 fL Normal 80-94 [facility] Comment on above: Performed By: #### L 100.0100, L500.4050, L501.2300, L501.5200 ####[facility] [address] [place], [address] Monocytes/100 WBC (Bld) 11.4 % High 0-10 [facility] Comment on above: Performed By: #### L 100.0100, L500.4050, L501.2300, L501.5200 ####[facility] [address] [place], [address] Neutrophils/100 WBC (Bld) 75.5 % High 47-70 [facility] Comment on above: Performed By: #### L 100.0100, L500.4050, L501.2300, L501.5200 ####[facility] [address] [place], [address] Nucleated RBC (Bld) [#/Vol] 0 10*3/uL Normal 0-5 [facility] Comment on above: Performed By: #### L 100.0100, L500.4050, L501.2300, L501.5200 ####[facility] [address] [place], [address] Platelet mean volume (Bld) [Entitic vol] 12.4 fL High 6.2-12.0 [facility] Comment on above: Performed By: #### L 100.0100, L500.4050, L501.2300, L501.5200 ####[facility] [address] [place], [address] Platelets (Bld) [#/Vol] 104 10*3/uL Low 150-450 [facility] Comment on above: Performed By: #### L 100.0100, L500.4050, L501.2300, L501.5200 ####[facility] [address] [place], [address] RBC (Bld) [#/Vol] 3.52 10*6/uL Low 4.6-6.[address] [facility] Comment on above: Performed By: #### L 100.0100, L500.4050, L501.2300, L501.5200 ####[facility] [address] [place], [address] RDW SD 46.0 fl High 35.1-43.9 [facility] Comment on above: Performed By: #### L 100.0100, L500.4050, L501.2300, L501.5200 ####[facility] [address] [place], [address] WBC (Bld) [#/Vol] 9.1 10*3/uL Normal 4.4-11.0 [facility] Comment on above: Performed By: #### L 100.0100, L500.4050, L501.2300, L501.5200 ####[facility] [address] [place], [address] Comprehensive Metabolic Prof [facility] 12-03-2024 Albumin [Mass/Vol] 3.4 g/dL Normal 3.4-4.8 [facility] Comment on above: Performed By: #### L 100.0100, L500.4050, L501.2300, L501.5200 ####[facility] [address] [place], [address] Albumin/Globulin [Mass ratio] 1.2 {ratio} Normal 0.9-2.4 [facility] Comment on above: Performed By: #### L 100.0100, L500.4050, L501.2300, L501.5200 ####[facility] [address] [place], [address] ALK PHOS 94 U/L Normal 40-129 [facility] Comment on above: Performed By: #### L 100.0100, L500.4050, L501.2300, L501.5200 ####[facility] [address] [place], [address] ALT [Catalytic activity/Vol] 47 U/L Normal <=46 [facility] Comment on above: Performed By: #### L 100.0100, L500.4050, L501.2300, L501.5200 ####[facility] [address] [place], [address] AST [Catalytic activity/Vol] 134 U/L High <=37 [facility] Comment on above: Performed By: #### L 100.0100, L500.4050, L501.2300, L501.5200 ####[facility] [address] [place], [address] Bilirubin [Mass/Vol] 1.27 mg/dL Normal 0.00-1.30 [facility] Comment on above: Performed By: #### L 100.0100, L500.4050, L501.2300, L501.5200 ####[facility] [address] [place], [address] BUN/CRE 20.6 RATIO High 10-20 [facility] Comment on above: Performed By: #### L 100.0100, L500.4050, L501.2300, L501.5200 ####[facility] [address] [place], [address] Calcium [Mass/Vol] 8.9 mg/dL Normal 7.6-11.0 [facility] Comment on above: Performed By: #### L 100.0100, L500.4050, L501.2300, L501.5200 ####[facility] [address] [place], [address] Chloride [Moles/Vol] 100 mmol/L Normal 98-108 [facility] Comment on above: Performed By: #### L 100.0100, L500.4050, L501.2300, L501.5200 ####[facility] [address] [place], [address] CO2 [Moles/Vol] 18.7 mmol/L Low 21.0-32.0 [facility] Comment on above: Performed By: #### L 100.0100, L500.4050, L501.2300, L501.5200 ####[facility] [address] [place], [address] Creatinine [Mass/Vol] 2.58 mg/dL High 0.70-1.20 [facility] Comment on above: Performed By: #### L 100.0100, L500.4050, L501.2300, L501.5200 ####[facility] [address] [place], [address] ECRCL 28.22 ml/min Low 50-250 [facility] Comment on above: Performed By: #### L 100.0100, L500.4050, L501.2300, L501.5200 ####[facility] [address] [place], [address] GAP 15 Normal 5-15 [facility] Comment on above: Performed By: #### L 100.0100, L500.4050, L501.2300, L501.5200 ####[facility] [address] [place], [address] GFR/1.73 sq M.predicted among non-blacks MDRD (S/P/Bld) [Vol rate/Area] 25 mL/min/{1.73_m2} Low >60 [facility] Comment on above: Result Comment: mL/m in/1.73m2 CKD-EPI Creatinine Equation (2020) Performed By: #### L 100.0100, L500.4050, L501.2300, L501.5200 ####[facility] [address] [place], [address] Globulin (S) [Mass/Vol] 2.8 g/dL Normal 2.2-4.2 [facility] Comment on above: Performed By: #### L 100.0100, L500.4050, L501.2300, L501.5200 ####[facility] [address] [place], [address] Glucose [Mass/Vol] 154 mg/dL High 70-99 [facility] Comment on above: Performed By: #### L 100.0100, L500.4050, L501.2300, L501.5200 ####[facility] [address] [place], [address] Potassium [Moles/Vol] 3.7 mmol/L Normal 3.3-5.1 [facility] Comment on above: Performed By: #### L 100.0100, L500.4050, L501.2300, L501.5200 ####[facility] [address] [place], [address] Sodium [Moles/Vol] 134 mmol/L Normal 133-145 [facility] Comment on above: Performed By: #### L 100.0100, L500.4050, L501.2300, L501.5200 ####[facility] [address] [place], [address] T PROT 6.3 g/dL Normal 5.9-8.4 [facility] Comment on above: Performed By: #### L 100.0100, L500.4050, L501.2300, L501.5200 ####[facility] [address] [place], [address] Urea nitrogen [Mass/Vol] 53 mg/dL High 4-19 [facility] Comment on above: Performed By: #### L 100.0100, L500.4050, L501.2300, L501.5200 ####[facility] [address] [place], [address] Consultation - Cardiologyon 12-03-2024 Consultation - Cardiology Normal [facility] Ketones Test strip Ql (U)Ord ered By: Alex Resendez on 12-03-2024 Ketones Ql (U) Negative Negative [facility] Magnesiumon 12-03-2024 Magnesium [Mass/Vol] 2.5 mg/dL High 1.5-2.2 [facility] Comment on above: Performed By: #### L 100.0100, L500.4050, L501.2300, L501.5200 ####[facility] [address] [place], [address] Magnesium measurement (mass/ volume)Ordered By: Alex Resendez on 12-03-2024 Magnesium (Unsp spec) [Mass/Vol] 2.5 mg/dL High 1.5-2.2 [facility] Mucus LM Ql (Urine sed)Order ed By: Alex Resendez on 12-03-2024 Mucus Ql (Urine sed) 0 SEEN /[facility]pf [facility] [facility] Test strip Ql (U)Ord ered By: Alex Resendez on 12-03-2024 Nitrite Ql (U) Negative Negative [facility] No Panel InformationOrdered By: Alex Resendez on 12-03-2024 134 U/L High <38 [facility] Phosphoruson 12-03-2024 Phosphate [Mass/Vol] 3.4 mg/dL Normal 2.7-4.5 [facility] Comment on above: Performed By: #### L 100.0100, L500.4050, L501.2300, L501.5200 ####[facility] [address] [place], [address] Protein Test strip Ql (U)Ord ered By: Alex Resendez on 12-03-2024 Protein Ql (U) 15 mg/dl High Negative [facility] Serum globulin measurementOr dered By: Alex Resendez on 12-03-2024 Globulin (S) [Mass/Vol] 2.8 g/dL 2.2-4.2 [facility] Serum or plasma alanine guerrero otransferase (ALT) measurementOrdered By: Alex Resendez on 12-03-2024 ALT [Catalytic activity/Vol] 47 U/L <47 [facility] Serum or plasma albumin francine urement (mass/volume)Ordered By: Alex Resendez on 12-03-2024 Albumin [Mass/Vol] 3.4 g/dL 3.4-4.8 [facility] Serum or plasma albumin/glob ulin mass ratioOrdered By: Alex Resendez on 12-03-2024 Albumin/Globulin [Mass ratio] 1.2 {ratio} 0.9-2.4 [facility] Serum or plasma alkaline bell sphatase measurementOrdered By: Alex Resendez on 12-03-2024 ALP [Catalytic activity/Vol] 94 U/L 40-129 [facility] Squamous epithelial cells de tection in urine sediment by light microscopyOrdered By: Alex Resendez on 12-03-2024 Epithelial cells.squamous LM Ql (Urine sed) 0 SEEN /hpf 0-5 [facility] Total proteinOrdered By: Yoseph Resendez on 12-03-2024 Protein [Mass/Vol] 6.3 g/dL 5.9-8.4 [facility] Troponin T HS 2 HRon 025 Trop T High Sen > 14162 Invalid Interpretation Code <=22 [facility] Comment on above: Result Comment: Crit ical Result(s) Called at:0007 by:??KEIKO HAVEN TO SKINNY Results read back by same. Performed By: #### L 499.0042 ####[facility] [address] [place], [address] Troponin T HS 4 HRon 025 Trop T High Sen > 68826 Invalid Interpretation Code <=22 [facility] Comment on above: Result Comment: Kerri ical Result(s) Called at: 0240 by:??KEIKO HOOPER Results read back by same. Performed By: #### L 499.0043 ####[facility] [address] [place], [address] Troponin T.cardiac [Mass/vol ume] in Serum or Plasma by High sensitivity methodOrdered By: Rasheed Canela on 12-03-2024 Troponin T.cardiac High sensitivity method [Mass/Vol] > 57097 ng/L High <22 [facility] Urinalysis, Completeon 12-03 BACTERIA 0 SEEN Normal None Seen [facility] Comment on above: Order Comment: CLEAN CATCH Performed By: #### L 400.0001 ####[facility] [address] [place], [address] EPI,SQUAMOUS 0 SEEN Normal 0-5 [facility] Comment on above: Order Comment: CLEAN CATCH Performed By: #### L 400.0001 ####[facility] [address] [place], [address] Mucus Ql (Urine sed) 0 SEEN Normal [facility] Comment on above: Order Comment: CLEAN CATCH Performed By: #### L 400.0001 ####[facility] [address] [place], [address] RBC 0 SEEN Normal 0-5 [facility] Comment on above: Order Comment: CLEAN CATCH Performed By: #### L 400.0001 ####[facility] [address] [place], [address] WBC 0 SEEN Normal 0-5 [facility] Comment on above: Order Comment: CLEAN CATCH Performed By: #### L 400.0001 ####[facility] [address] [place], [place], [id number] Urine clarityOrdered By: Yoseph Resendez on 12-03-2024 Clarity (U) Clear Clear [facility] Urine color determinationOrd ered By: Alex Resendez on 12-03-2024 Color (U) Yellow Yellow [facility] Urine glucose detectionOrder ed By: Alex Resendez on 12-03-2024 Glucose Ql (U) Normal mg/dl Normal [facility] Urine leukocyte esterase det ection by dipstickOrdered By: Alex Resendez on 12-03-2024 Leukocyte esterase Test strip Ql (U) Negative Negative [facility] Urine pHOrdered By: Alex best on 12-03-2024 pH (U) 6.0 [pH] 5.0 - 8.0 [facility] Urine sediment bacteria coun t by microscopy (number/high power field)Ordered By: Alex Resendez on 12-03-2024 Bacteria LM.HPF (Urine sed) [#/Area] 0 /[HPF] None Seen [facility] Urine specific gravity measu rementOrdered By: Alex Resendez on 12-03-2024 Specific gravity (U) [Rel density] 1.015 1.002-1.03 0 [facility] Urine urobilinogen measureme ntOrdered By: Alex Resendez on 12-03-2024 Urobilinogen Ql (U) Normal mg/dl Normal [facility] White blood cell countOrdere d By: Alex Resendez on 12-03-2024 White blood cell count 0 SEEN /hpf 0-5 W [facility] 12 Lead EKGon 12-02-2024 12 Lead EKG Normal [facility] ACT Activated Clotting Timeo n 12-02-2024 ACTk CLOT TIME 245 sec High 74-137 [facility] Comment on above: Performed By: #### L 9100.0100 ####[facility] [address] [place], [address] Absolute lymphocyte countOrd ered By: Rasheed Canela on 12-02-2024 Lymphocytes Auto (Unsp spec) [#/Vol] 1.13 10*3/uL 0.83-4.51 [facility] Absolute lymphocyte countOrd ered By: Nickie Danielson on 12-02-2024 Lymphocytes Auto (Unsp spec) [#/Vol] 0.85 10*3/uL 0.83-4.51 [facility] Activated partial thrombopla stin time (aPTT) in platelet poor plasma by coagulation aOrdered By: Rasheed Canela on 12-02-2024 aPTT Coag (PPP) [Time] 31.6 s 24.1-36.2 [facility] Anion gap in Serum or Plasma Ordered By: Rasheed Canela on 12-02-2024 Anion gap [Moles/Vol] 14 mmol/L 09-14 [facility] Anion gap in Serum or Plasma Ordered By: Nickie Danielson on 12-02-2024 Anion gap [Moles/Vol] 14 mmol/L 09-14 [facility] Automated lymphocyte count a s percentage of total leukocytesOrdered By: Rasheed Canela on 12-02-2024 Lymphocytes/100 WBC Auto (Unsp spec) 8.9 % Low [facility] Automated lymphocyte count a s percentage of total leukocytesOrdered By: Nickie Danielosn on 12-02-2024 Lymphocytes/100 WBC Auto (Unsp spec) 7.6 % Low - [facility] BUN/creatinine ratioOrdered By: Rasheed Canela on 12-02-2024 Urea nitrogen/Creatinine [Mass ratio] 18.0 mg/mg 02-19 [facility] BUN/creatinine ratioOrdered By: Nickie Danielson on 12-02-2024 Urea nitrogen/Creatinine [Mass ratio] 17.2 mg/mg 02-19 [facility] Basic Metabolic Profile (BMP )on 12-02-2024 BUN/CRE 18.0 RATIO Normal 02-19 [facility] Comment on above: Performed By: #### L 300.3900, L300.4310, L501.4021, L500.2500, L100.0100 ####[facility] [address] [place], [address] Calcium [Mass/Vol] 9.1 mg/dL Normal 7.6-11.0 [facility] Comment on above: Performed By: #### L 300.3900, L300.4310, L501.4021, L500.2500, L100.0100 ####[facility] [address] [place], [address] Chloride [Moles/Vol] 96 mmol/L Low 98-108 [facility] Comment on above: Performed By: #### L 300.3900, L300.4310, L501.4021, L500.2500, L100.0100 ####[facility] [address] [place], [address] CO2 [Moles/Vol] 20.5 mmol/L Low 21.0-32.0 [facility] Comment on above: Performed By: #### L 300.3900, L300.4310, L501.4021, L500.2500, L100.0100 ####[facility] [address] [place], [address] Creatinine [Mass/Vol] 2.90 mg/dL High 0.70-1.20 [facility] Comment on above: Performed By: #### L 300.3900, L300.4310, L501.4021, L500.2500, L100.0100 ####[facility] [address] [place], [address] ECRCL 25.31 ml/min Low 50-250 [facility] Comment on above: Performed By: #### L 300.3900, L300.4310, L501.4021, L500.2500, L100.0100 ####[facility] [address] [place], [address] GAP 14 Normal 5-15 [facility] Comment on above: Performed By: #### L 300.3900, L300.4310, L501.4021, L500.2500, L100.0100 ####[facility] [address] [place], [address] GFR/1.73 sq M.predicted among non-blacks MDRD (S/P/Bld) [Vol rate/Area] 21 mL/min/{1.73_m2} Low >60 [facility] Comment on above: Result Comment: mL/m in/1.73m2 CKD-EPI Creatinine Equation (2020) Performed By: #### L 300.3900, L300.4310, L501.4021, L500.2500, L100.0100 ####[facility] [address] [place], [address] Glucose [Mass/Vol] 175 mg/dL High 70-99 [facility] Comment on above: Performed By: #### L 300.3900, L300.4310, L501.4021, L500.2500, L100.0100 ####[facility] [address] [place], [address] Potassium [Moles/Vol] 4.6 mmol/L Normal 3.3-5.1 [facility] Comment on above: Performed By: #### L 300.3900, L300.4310, L501.4021, L500.2500, L100.0100 ####[facility] [address] [place], [address] Sodium [Moles/Vol] 131 mmol/L Low 133-145 [facility] Comment on above: Performed By: #### L 300.3900, L300.4310, L501.4021, L500.2500, L100.0100 ####[facility] [address] [place], [address] Urea nitrogen [Mass/Vol] 52 mg/dL High 4-19 [facility] Comment on above: Performed By: #### L 300.3900, L300.4310, L501.4021, L500.2500, L100.0100 ####[facility] [address] [place], [address] BUN/CRE 17.2 RATIO Normal 10-20 [facility] Comment on above: Performed By: #### L 100.0100, L500.2500 ####[facility] [address] [place], [address] Calcium [Mass/Vol] 9.3 mg/dL Normal 7.6-11.0 [facility] Comment on above: Performed By: #### L 100.0100, L500.2500 ####[facility] [address] [place], [address] Chloride [Moles/Vol] 99 mmol/L Normal 98-108 [facility] Comment on above: Performed By: #### L 100.0100, L500.2500 ####[facility] [address] [place], [address] CO2 [Moles/Vol] 20.6 mmol/L Low 21.0-32.0 [facility] Comment on above: Performed By: #### L 100.0100, L500.2500 ####[facility] [address] [place], [address] Creatinine [Mass/Vol] 2.93 mg/dL High 0.70-1.20 [facility] Comment on above: Performed By: #### L 100.0100, L500.2500 ####[facility] [address] [place], [address] ECRCL 24.95 ml/min Low 50-250 [facility] Comment on above: Performed By: #### L 100.0100, L500.2500 ####[facility] [address] [place], [address] GAP 14 Normal 5-15 [facility] Comment on above: Performed By: #### L 100.0100, L500.2500 ####[facility] [address] [place], [address] GFR/1.73 sq M.predicted among non-blacks MDRD (S/P/Bld) [Vol rate/Area] 21 mL/min/{1.73_m2} Low >60 [facility] Comment on above: Result Comment: mL/m in/1.73m2 CKD-EPI Creatinine Equation (2020) Performed By: #### L 100.0100, L500.2500 ####[facility] [address] [place], [address] Glucose [Mass/Vol] 138 mg/dL High 70-99 [facility] Comment on above: Performed By: #### L 100.0100, L500.2500 ####[facility] [address] [place], [address] Potassium [Moles/Vol] 4.8 mmol/L Normal 3.3-5.1 [facility] Comment on above: Performed By: #### L 100.0100, L500.2500 ####[facility] [address] [place], [address] Sodium [Moles/Vol] 133 mmol/L Normal 133-145 [facility] Comment on above: Performed By: #### L 100.0100, L500.2500 ####[facility] [address] [place], [address] Urea nitrogen [Mass/Vol] 50 mg/dL High 4-19 [facility] Comment on above: Performed By: #### L 100.0100, L500.2500 ####[facility] [address] [place], [address] Basophil percentageOrdered B y: Rasheed Canela on 12-02-2024 Basophils/100 WBC (Bld) 0.3 % 0-1 [facility] Basophil percentageOrdered B y: Nickie Danielson on 12-02-2024 Basophils/100 WBC (Bld) 0.1 % 0-1 [facility] Bedside Glucoseon 12-02-2024 FINGERSTICK GLU 129 mg/dL High 74-106 [facility] Comment on above: Result Comment: WILDA BARROSO OF PATIENT CARE PER NURSING PROTOCOL Performed By: #### L 501.080 ####[facility] [address] [place], [address] Blood manual differential co mment interpretation (narrative result)Ordered By: Rasheed Canela on 12-02-2024 Manual differential comment Luis Manuel (Bld) [Interp] SCANNED [facility] Brain without Contraston Brain without Contrast Normal [facility] CBC W/Diff, Automatedon PLT EST SLT DEC Normal ADEQ [facility] Comment on above: Performed By: #### L 300.3900, L300.4310, L501.4021, L500.2500, L100.0100 ####[facility] [address] [place], [address] SMEAR COMMENT SCANNED Normal [facility] Comment on above: Performed By: #### L 300.3900, L300.4310, L501.4021, L500.2500, L100.0100 ####[facility] [address] [place], [address] Absolute Lymph 0.85 X10 3/uL Normal 0.83-4.51 [facility] Comment on above: Performed By: #### L 100.0100, L500.2500 ####[facility] [address] [place], [address] Absolute Neut 8.8 X10 3/uL High 2.0-7.7 [facility] Comment on above: Performed By: #### L 100.0100, L500.2500 ####[facility] [address] [place], [address] Basophils/100 WBC (Bld) 0.1 % Normal 0-1 [facility] Comment on above: Performed By: #### L 100.0100, L500.2500 ####[facility] [address] [place], [address] Eosinophils/100 WBC (Bld) 0.7 % Normal 0-5 [facility] Comment on above: Performed By: #### L 100.0100, L500.2500 ####[facility] [address] [place], [address] Erythrocyte distribution width (RBC) [Ratio] 14.4 % Normal 11.6-14.6 [facility] Comment on above: Performed By: #### L 100.0100, L500.2500 ####[facility] [address] [place], [address] Hematocrit (Bld) [Volume fraction] 32.1 % Low 40-54 [facility] Comment on above: Performed By: #### L 100.0100, L500.2500 ####[facility] [address] [place], [address] Hemoglobin (Bld) [Mass/Vol] 10.4 g/dL Low 13.0-16.5 [facility] Comment on above: Performed By: #### L 100.0100, L500.2500 ####[facility] [address] [place], [address] IG% 0.700 Normal 0.0-0.9 [facility] Comment on above: Result Comment: IG% - Immature Granulocytes (promyelocytes, myelocytes andmetamyelocytes) > 1% indicates that a LEFT SHIFT is Present. Performed By: #### L 100.0100, L500.2500 ####[facility] [address] [place], [address] Lymphocytes/100 WBC (Bld) 7.6 % Low 19-41 [facility] Comment on above: Performed By: #### L 100.0100, L500.2500 ####[facility] [address] [place], [address] MCH (RBC) [Entitic mass] 29.5 pg Normal 27.0-32.0 [facility] Comment on above: Performed By: #### L 100.0100, L500.2500 ####[facility] [address] [place], [address] MCHC (RBC) [Mass/Vol] 32.4 g/dL Normal 32-36 [facility] Comment on above: Performed By: #### L 100.0100, L500.2500 ####[facility] [address] [place], [address] MCV (RBC) [Entitic vol] 91.2 fL Normal 80-94 [facility] Comment on above: Performed By: #### L 100.0100, L500.2500 ####[facility] [address] [place], [address] Monocytes/100 WBC (Bld) 12.0 % High 0-10 [facility] Comment on above: Performed By: #### L 100.0100, L500.2500 ####[facility] [address] [place], [address] Neutrophils/100 WBC (Bld) 78.9 % High 47-70 [facility] Comment on above: Performed By: #### L 100.0100, L500.2500 ####[facility] [address] [place], [address] Nucleated RBC (Bld) [#/Vol] 0 10*3/uL Normal 0-5 [facility] Comment on above: Performed By: #### L 100.0100, L500.2500 ####[facility] [address] [place], [address] Platelet mean volume (Bld) [Entitic vol] 13.1 fL High 6.2-12.0 [facility] Comment on above: Performed By: #### L 100.0100, L500.2500 ####[facility] [address] [place], [address] Platelets (Bld) [#/Vol] 113 10*3/uL Low 150-450 [facility] Comment on above: Performed By: #### L 100.0100, L500.2500 ####[facility] [address] [place], [address] RBC (Bld) [#/Vol] 3.52 10*6/uL Low 4.6-6.[address] [facility] Comment on above: Performed By: #### L 100.0100, L500.2500 ####[facility] [address] [place], [address] RDW SD 47.4 fl High 35.1-43.9 [facility] Comment on above: Performed By: #### L 100.0100, L500.2500 ####[facility] [address] [place], [address] WBC (Bld) [#/Vol] 11.2 10*3/uL High 4.4-11.[address] [facility] Comment on above: Performed By: #### L 100.0100, L500.2500 ####[facility] [address] [place], [address] CVS/PCIREPORTon 12-02-2024 CVS/PCIREPORT Normal [facility] Carbon dioxide, total [Moles /volume] in Central venous bloodOrdered By: Rasheed Canela on 12-02-2024 CO2 [Moles/Vol] 20.5 mmol/L Low 21.0-32.0 [facility] Carbon dioxide, total [Moles /volume] in Central venous bloodOrdered By: Nickie Danielson on 12-02-2024 CO2 [Moles/Vol] 20.6 mmol/L Low 21.0-32.0 [facility] Chloride assayOrdered By: Afshin Canela on 12-02-2024 Chloride [Moles/Vol] 96 mmol/L Low 98-108 [facility] Chloride assayOrdered By: Korina Danielson on 12-02-2024 Chloride [Moles/Vol] 99 mmol/L 98-108 [facility] Emergency Department Summary on 12-02-2024 Emergency Department Summary Normal [facility] Eosinophil percentageOrdered By: Rasheed Canela on 12-02-2024 Eosinophils/100 WBC (Bld) 0.8 % 0-5 [facility] Eosinophil percentageOrdered By: Nickie Danielson on 12-02-2024 Eosinophils/100 WBC (Bld) 0.7 % 0-5 [facility] Erythrocyte distribution wid th ratioOrdered By: Rasheed Canela on 12-02-2024 Erythrocyte distribution width (RBC) [Ratio] 14.1 % 11.6-14.6 [facility] Erythrocyte distribution wid th ratioOrdered By: Nickie Danielson on 12-02-2024 Erythrocyte distribution width (RBC) [Ratio] 14.4 % 11.6-14.6 [facility] Erythrocyte distribution wid th standard deviationOrdered By: Rasheed Canela on 12-02-2024 Erythrocyte distribution width (RBC) [Ratio] 45.8 fl High 35.1-43.9 [facility] Erythrocyte distribution wid th standard deviationOrdered By: Nickie Danielson on 12-02-2024 Erythrocyte distribution width (RBC) [Ratio] 47.4 fl High 35.1-43.9 [facility] Glomerular filtration rate ( GFR) estimation/1.73 sq m using serum, plasma, or whole bOrdered By: Rasheed Canela on 12-02-2024 GFR/1.73 sq M.predicted among non-blacks MDRD (S/P/Bld) [Vol rate/Area] 21 mL/min/{1.73_m2} Low >60 [facility] Glomerular filtration rate ( GFR) estimation/1.73 sq m using serum, plasma, or whole bOrdered By: Nickie Danielson on 12-02-2024 GFR/1.73 sq M.predicted among non-blacks MDRD (S/P/Bld) [Vol rate/Area] 21 mL/min/{1.73_m2} Low >60 [facility] Glucose measurement at bedsi deOrdered By: Nickie Danielson on 12-02-2024 Glucose [Mass/Vol] 200 mg/dL High 74-106 [facility] Glucose [Mass/Vol] 129 mg/dL High 74-106 [facility] H AND P Exam - Hospitaliston 12-02-2024 H&P Exam - Hospitalist Normal [facility] Hematocrit Auto (Bld) [Volum e fraction]Ordered By: Rasheed Canela on 12-02-2024 Hematocrit (Bld) [Volume fraction] 34.1 % Low 40-54 [facility] Hematocrit Auto (Bld) [Volum e fraction]Ordered By: Nickie Danielson on 12-02-2024 Hematocrit (Bld) [Volume fraction] 32.1 % Low 40-54 [facility] Hemoglobin measurementOrdere d By: Rasheed Canela on 12-02-2024 Hemoglobin (Bld) [Mass/Vol] 11.1 g/dL Low 13.0-16.5 [facility] Hemoglobin measurementOrdere d By: Nickie Danielson on 12-02-2024 Hemoglobin (Bld) [Mass/Vol] 10.4 g/dL Low 13.0-16.5 [facility] Immature granulocytes/100 WB C Auto (Bld)Ordered By: Rasheed Canela on 12-02-2024 Immature granulocytes/100 WBC (Bld) 0.600 % 0.0-0.9 [facility] Immature granulocytes/100 WB C Auto (Bld)Ordered By: Nickie Danielson on 12-02-2024 Immature granulocytes/100 WBC (Bld) 0.700 % 0.0-0.9 [facility] L501.4021on 12-02-2024 Trop T High Sen > 52431 Invalid Interpretation Code <=22 [facility] Comment on above: Result Comment: Crit ical Result(s) Called at: 2120 by: MOISE MENDIOLA??Results read back by same. Performed By: #### L 300.3900, L300.4310, L501.4021, L500.2500, L100.0100 ####[facility] [address] [place], [place], [id number] MCV (mean corpuscular volume ) determinationOrdered By: Rasheed Hilton on 12-02-2024 MCV (RBC) [Entitic vol] 89.5 fL 80-94 [facility] MCV (mean corpuscular volume ) determinationOrdered By: Nickie Danielson on 12-02-2024 MCV (RBC) [Entitic vol] 91.2 fL 80-94 [facility] MR/CON.PCM.NEon 12-02-2024 MR/CON.PCM.NE Normal [facility] MRA Head ONLY without Contra ston 12-02-2024 MRA Head ONLY without Contrast Normal [facility] MRA Neck without Contraston 12-02-2024 MRA Neck without Contrast Normal [facility] Magnetic resonance imaging r eportOrdered By: Nghia Waters on 12-02-2024 Study report [facility] Mean corpuscular hemoglobin (MCH) determinationOrdered By: Rasheed Canela on 12-02-2024 MCH (RBC) [Entitic mass] 29.1 pg 27.0-32.0 [facility] Mean corpuscular hemoglobin (MCH) determinationOrdered By: Nickie Danielson on 12-02-2024 MCH (RBC) [Entitic mass] 29.5 pg 27.0-32.0 [facility] Monocyte percentageOrdered B y: Rasheed Hilton on 12-02-2024 Monocytes/100 WBC (Bld) 12.7 % High 0-10 [facility] Monocyte percentageOrdered B y: Nickie Danielson on 12-02-2024 Monocytes/100 WBC (Bld) 12.0 % High 0-10 [facility] Neutrophil percentageOrdered By: Rasheed Canela on 12-02-2024 Neutrophils/100 WBC (Bld) 76.7 % High 47-70 [facility] Neutrophil percentageOrdered By: Nickie Danielson on 12-02-2024 Neutrophils/100 WBC (Bld) 78.9 % High 47-70 [facility] Partial Thromboplast Timeon 12-02-2024 aPTT Coag (Bld) [Time] 31.6 s Normal 24.1-36.2 [facility] Comment on above: Performed By: #### L 300.3900, L300.4310, L501.4021, L500.2500, L100.0100 ####[facility] [address] [place], [address] Platelet countOrdered By: Afshin Canela on 12-02-2024 Platelets (Bld) [#/Vol] 134 10*3/uL Low 150-450 [facility] Platelet countOrdered By: Korina Danielson on 12-02-2024 Platelets (Bld) [#/Vol] 113 10*3/uL Low 150-450 [facility] Platelet estimateOrdered By: Rasheed Canela on 12-02-2024 Platelets LM Ql (Bld) SLT DEC ADEQ [facility] Potassium measurement (mass/ volume)Ordered By: Rasheed Canela on 12-02-2024 Potassium (Unsp spec) [Mass/Vol] 4.6 mmol/L 3.3-5.1 [facility] Potassium measurement (mass/ volume)Ordered By: Nickie Danielson on 12-02-2024 Potassium (Unsp spec) [Mass/Vol] 4.8 mmol/L 3.3-5.1 [facility] Prothrombin Time w/INRon INR Coag (PPP) [Relative time] 1.1 {INR} Normal [facility] Comment on above: Performed By: #### L 300.3900, L300.4310, L501.4021, L500.2500, L100.0100 ####[facility] [address] [place], [address] PT Coag (PPP) [Time] 14.6 s Normal 11.7-14.9 [facility] Comment on above: Performed By: #### L 300.3900, L300.4310, L501.4021, L500.2500, L100.0100 ####[facility] [address] [place], [address] Prothrombin timeOrdered By: Rasheed Hilton on 12-02-2024 PT Coag (PPP) [Time] 14.6 s 11.7-14.9 [facility] RBC Auto (Bld) [#/Vol]Ordere d By: Rasheed Canela on 12-02-2024 RBC (Bld) [#/Vol] 3.81 10*6/uL Low 4.6-6.[address] [facility] RBC Auto (Bld) [#/Vol]Ordere d By: Nickie Danielson on 12-02-2024 RBC (Bld) [#/Vol] 3.52 10*6/uL Low 4.6-6.[address] [facility] Serum creatinine measurement (mass/volume)Ordered By: Rasheed Canela on 12-02-2024 Creatinine [Mass/Vol] 2.90 mg/dL High 0.70-1.20 [facility] Serum creatinine measurement (mass/volume)Ordered By: Nickie Danielson on 12-02-2024 Creatinine [Mass/Vol] 2.93 mg/dL High 0.70-1.20 [facility] Serum glucose measurement (m ass/volume)Ordered By: Rasheed Canela on 12-02-2024 Glucose [Mass/Vol] 175 mg/dL High 70- [facility] Serum glucose measurement (m ass/volume)Ordered By: Nickie Danielson on 12-02-2024 Glucose [Mass/Vol] 138 mg/dL High 70- [facility] Serum or plasma calcium francine urement (mass/volume)Ordered By: Rasheed Canela on 12-02-2024 Calcium [Mass/Vol] 9.1 mg/dL 7.6-11.0 [facility] Serum or plasma calcium francine urement (mass/volume)Ordered By: Nickie Danielson on 12-02-2024 Calcium [Mass/Vol] 9.3 mg/dL 7.6-11.0 [facility] Serum or plasma urea nitroge n measurement (mass/volume)Ordered By: Rasheed Canela on 12-02-2024 Urea nitrogen [Mass/Vol] 52 mg/dL High 08-19 [facility] Serum or plasma urea nitroge n measurement (mass/volume)Ordered By: Nickie Danielson on 12-02-2024 Urea nitrogen [Mass/Vol] 50 mg/dL High 08-19 [facility] Sodium levelOrdered By: Rasheed Canela on 12-02-2024 Sodium [Moles/Vol] 131 mmol/L Low 133-145 [facility] Sodium levelOrdered By: Johanna Danielson on 12-02-2024 Sodium [Moles/Vol] 133 mmol/L 133-145 [facility] Troponin T.cardiac [Mass/vol ume] in Serum or Plasma by High sensitivity methodOrdered By: Rasheed Canela on 12-02-2024 Troponin T.cardiac High sensitivity method [Mass/Vol] > 66073 ng/L High <22 [facility] Troponin T.cardiac High sensitivity method [Mass/Vol] > 13532 ng/L High <22 [facility] White blood cell (WBC) count Ordered By: Rasheed Canela on 12-02-2024 WBC (Bld) [#/Vol] 12.7 10*3/uL High 4.4-11.[address] [facility] White blood cell (WBC) count Ordered By: Nickie Danielson on 12-02-2024 WBC (Bld) [#/Vol] 11.2 10*3/uL High 4.4-11.[address] [facility] 12 Lead EKGon 12-01-2024 12 Lead EKG Normal [facility] Bedside Glucoseon 12-01-2024 FINGERSTICK GLU 148 mg/dL High 74-106 [facility] Comment on above: Result Comment: WILDA GEMENT OF PATIENT CARE PER NURSING PROTOCOL Performed By: #### L 501.080 ####[facility] [address] [facility] [address] FINGERSTICK GLU 203 mg/dL High [address] Comment on above: Result Comment: WILDA GEMENT OF PATIENT CARE PER NURSING PROTOCOL Performed By: #### L 501.080 ####[facility] [address] [facility] [address] FINGERSTICK GLU 153 mg/dL High [address] [place] [address] Comment on above: Result Comment: WILDA GEMENT OF PATIENT CARE PER NURSING PROTOCOL Performed By: #### L 501.080 ####[facility] [address] [facility] [address] FINGERSTICK GLU 187 mg/dL High 74-106 [facility] Comment on above: Result Comment: WILDA GEMENT OF PATIENT CARE PER NURSING PROTOCOL Performed By: #### L 501.080 ####[facility] [address] [place], [address] FINGERSTICK GLU 223 mg/dL High 74-106 [facility] Comment on above: Result Comment: WILDA GEMENT OF PATIENT CARE PER NURSING PROTOCOL Performed By: #### L 501.080 ####[facility] [address] [place], [address] Bilirubin, totalOrdered By: Jose Hay on 12-01-2024 Bilirubin [Mass/Vol] 1.07 mg/dL 0.00-1.30 [facility] CBC-Complete Blood Cnt No Di ffon 12-01-2024 Erythrocyte distribution width (RBC) [Ratio] 14.0 % Normal 11.6-14.6 [facility] Comment on above: Performed By: #### L 100.0500, L500.4050 ####[facility] [address] [place], [address] Hematocrit (Bld) [Volume fraction] 33.2 % Low 40-54 [facility] Comment on above: Performed By: #### L 100.0500, L500.4050 ####[facility] [address] [place], [address] Hemoglobin (Bld) [Mass/Vol] 10.8 g/dL Low 13.0-16.5 [facility] Comment on above: Performed By: #### L 100.0500, L500.4050 ####[facility] [address] [place], [address] MCH (RBC) [Entitic mass] 29.3 pg Normal 27.0-32.0 [facility] Comment on above: Performed By: #### L 100.0500, L500.4050 ####[facility] [address] [place], [address] MCHC (RBC) [Mass/Vol] 32.5 g/dL Normal 32-36 [facility] Comment on above: Performed By: #### L 100.0500, L500.4050 ####[facility] [address] [place], [address] MCV (RBC) [Entitic vol] 90.2 fL Normal 80-94 [facility] Comment on above: Performed By: #### L 100.0500, L500.4050 ####[facility] [address] [place], [address] Platelet mean volume (Bld) [Entitic vol] 12.7 fL High 6.2-12.0 [facility] Comment on above: Performed By: #### L 100.0500, L500.4050 ####[facility] [address] [place], [address] Platelets (Bld) [#/Vol] 142 10*3/uL Low 150-450 [facility] Comment on above: Performed By: #### L 100.0500, L500.4050 ####[facility] [address] [place], [address] RBC (Bld) [#/Vol] 3.68 10*6/uL Low 4.6-6.[address] [facility] Comment on above: Performed By: #### L 100.0500, L500.4050 ####[facility] [address] [place], [address] RDW SD 45.8 fl High 35.1-43.9 [facility] Comment on above: Performed By: #### L 100.0500, L500.4050 ####[facility] [address] [place], [address] WBC (Bld) [#/Vol] 14.6 10*3/uL High 4.4-11.[address] [facility] Comment on above: Performed By: #### L 100.0500, L500.4050 ####[facility] [address] [place], [address] Cardiac rehabilitation repor tOrdered By: Natacha Fermin on 12-01-2024 Study report [facility] Comprehensive Metabolic Prof ilon 12-01-2024 Albumin [Mass/Vol] 3.7 g/dL Normal 3.4-4.8 [facility] Comment on above: Performed By: #### L 100.0500, L500.4050 ####[facility] [address] [place], [address] Albumin/Globulin [Mass ratio] 1.5 {ratio} Normal 0.9-2.4 [facility] Comment on above: Performed By: #### L 100.0500, L500.4050 ####[facility] [address] [place], [address] ALK PHOS 82 U/L Normal 40-129 [facility] Comment on above: Performed By: #### L 100.0500, L500.4050 ####[facility] [address] [place], [address] ALT [Catalytic activity/Vol] 77 U/L High <=46 [facility] Comment on above: Performed By: #### L 100.0500, L500.4050 ####[facility] [address] [place], [address] AST [Catalytic activity/Vol] 497 U/L High <=37 [facility] Comment on above: Performed By: #### L 100.0500, L500.4050 ####[facility] [address] [place], [address] Bilirubin [Mass/Vol] 1.07 mg/dL Normal 0.00-1.30 [facility] Comment on above: Performed By: #### L 100.0500, L500.4050 ####[facility] [address] [place], [address] BUN/CRE 14.2 RATIO Normal 10-20 [facility] Comment on above: Performed By: #### L 100.0500, L500.4050 ####[facility] [address] [place], [address] Calcium [Mass/Vol] 8.7 mg/dL Normal 7.6-11.0 [facility] Comment on above: Performed By: #### L 100.0500, L500.4050 ####[facility] [address] [place], [address] Chloride [Moles/Vol] 100 mmol/L Normal 98-108 [facility] Comment on above: Performed By: #### L 100.0500, L500.4050 ####[facility] [address] [place], [address] CO2 [Moles/Vol] 20.3 mmol/L Low 21.0-32.0 [facility] Comment on above: Performed By: #### L 100.0500, L500.4050 ####[facility] [address] [place], [address] Creatinine [Mass/Vol] 3.16 mg/dL High 0.70-1.20 [facility] Comment on above: Performed By: #### L 100.0500, L500.4050 ####[facility] [address] [place], [address] ECRCL 23.23 ml/min Low 50-250 [facility] Comment on above: Performed By: #### L 100.0500, L500.4050 ####[facility] [address] [place], [address] GAP 14 Normal 5-15 [facility] Comment on above: Performed By: #### L 100.0500, L500.4050 ####[facility] [address] [place], [address] GFR/1.73 sq M.predicted among non-blacks MDRD (S/P/Bld) [Vol rate/Area] 19 mL/min/{1.73_m2} Low >60 [facility] Comment on above: Result Comment: mL/m in/1.73m2 CKD-EPI Creatinine Equation (2020) Performed By: #### L 100.0500, L500.4050 ####[facility] [address] [place], [address] Globulin (S) [Mass/Vol] 2.4 g/dL Normal 2.2-4.2 [facility] Comment on above: Performed By: #### L 100.0500, L500.4050 ####[facility] [address] [place], [address] Glucose [Mass/Vol] 157 mg/dL High 70-99 [facility] Comment on above: Performed By: #### L 100.0500, L500.4050 ####[facility] [address] [place], [address] Potassium [Moles/Vol] 5.0 mmol/L Normal 3.3-5.1 [facility] Comment on above: Performed By: #### L 100.0500, L500.4050 ####[facility] [address] [place], [address] Sodium [Moles/Vol] 134 mmol/L Normal 133-145 [facility] Comment on above: Performed By: #### L 100.0500, L500.4050 ####[facility] [address] [place], [address] T PROT 6.0 g/dL Normal 5.9-8.4 [facility] Comment on above: Performed By: #### L 100.0500, L500.4050 ####[facility] [address] [place], [address] Urea nitrogen [Mass/Vol] 45 mg/dL High 4-19 [facility] Comment on above: Performed By: #### L 100.0500, L500.4050 ####[facility] [address] [place], [address] Echo Limited w/Contraston Echo Limited w/Contrast Normal [facility] Electrocardiogram reportOrde red By: Marcin Araujo on 12-01-2024 EKG study [facility] Work Phone: HH, Hemoglobin AND Hematocri ton 12-01-2024 Hematocrit (Bld) [Volume fraction] 32.7 % Low 40-54 [facility] Comment on above: Performed By: #### L 100.0600 ####[facility] [address] [place], [address] Hemoglobin (Bld) [Mass/Vol] 10.6 g/dL Low 13.0-16.5 [facility] Comment on above: Performed By: #### L 100.0600 ####[facility] [address] [place], [address] Limited echocardiogram repor tOrdered By: Lance Espino on 12-01-2024 Study report [facility] Other Phone: No Panel InformationOrdered By: Jose Hay on 12-01-2024 497 U/L High <38 [facility] STROKE Brain/Head without Co nton 12-01-2024 STROKE Brain/Head without Cont Normal [facility] Serum globulin measurementOr dered By: Jose Hay on 12-01-2024 Globulin (S) [Mass/Vol] 2.4 g/dL 2.2-4.2 [facility] Serum or plasma alanine guerrero otransferase (ALT) measurementOrdered By: Jose Hay on 12-01-2024 ALT [Catalytic activity/Vol] 77 U/L High <47 [facility] Serum or plasma albumin francine urement (mass/volume)Ordered By: Jose Hay on 12-01-2024 Albumin [Mass/Vol] 3.7 g/dL 3.4-4.8 [facility] Serum or plasma albumin/glob ulin mass ratioOrdered By: Jose Hay on 12-01-2024 Albumin/Globulin [Mass ratio] 1.5 {ratio} 0.9-2.4 [facility] Serum or plasma alkaline bell sphatase measurementOrdered By: Josemorro Hay on 12-01-2024 ALP [Catalytic activity/Vol] 82 U/L 40-129 [facility] Total proteinOrdered By: Emmanuel Hay on 12-01-2024 Protein [Mass/Vol] 6.0 g/dL 5.9-8.4 [facility] 12 Lead EKGon 11-30-2024 12 Lead EKG Normal [facility] ACT Activated Clotting Timeo n 11-30-2024 ACTk CLOT TIME 187 sec High 74-137 [facility] Comment on above: Performed By: #### L 9100.0100 ####[facility] [address] [place], [place], [id number] ACTk CLOT TIME 176 sec High 74-137 [facility] Comment on above: Performed By: #### L 9100.0100 ####[facility] [address] [place], [place], [id number] Absolute lymphocyte countOrd ered By: Isael Bernabe on 11-30-2024 Lymphocytes Auto (Unsp spec) [#/Vol] 1.93 10*3/uL 0.83-4.51 [facility] Activated partial thrombopla stin time (aPTT) in platelet poor plasma by coagulation aOrdered By: Isael Bernabe on 11-30-2024 aPTT Coag (PPP) [Time] 112.9 s High 24.1-36.2 [facility] Anion gap in Serum or Plasma Ordered By: Isael Bernabe on 11-30-2024 Anion gap [Moles/Vol] 19 mmol/L High 5-15 [facility] Automated lymphocyte count a s percentage of total leukocytesOrdered By: Isael Bernabe on 11-30-2024 Lymphocytes/100 WBC Auto (Unsp spec) 10.1 % Low 19-41 [facility] BUN/creatinine ratioOrdered By: Isael Jyotilee ann on 11-30-2024 Urea nitrogen/Creatinine [Mass ratio] 14.4 mg/mg 10-20 [facility] Basic Metabolic Profile (BMP )on 11-30-2024 BUN/CRE 14.4 RATIO Normal - [facility] [facility] Comment on above: Performed By: #### L 501.4021, L300.3900, L300.4310, L500.2500, L100.0100 ####[facility] [address] [place], [address] Calcium [Mass/Vol] 9.5 mg/dL Normal 7.6-11.0 [facility] Comment on above: Performed By: #### L 501.4021, L300.3900, L300.4310, L500.2500, L100.0100 ####[facility] [address] [place], [address] Chloride [Moles/Vol] 98 mmol/L Normal 98-108 [facility] Comment on above: Performed By: #### L 501.4021, L300.3900, L300.4310, L500.2500, L100.0100 ####[facility] [address] [place], [address] CO2 [Moles/Vol] 18.3 mmol/L Low 21.0-32.0 [facility] Comment on above: Performed By: #### L 501.4021, L300.3900, L300.4310, L500.2500, L100.0100 ####[facility] [address] [place], [address] Creatinine [Mass/Vol] 3.10 mg/dL High 0.70-1.20 [facility] Comment on above: Performed By: #### L 501.4021, L300.3900, L300.4310, L500.2500, L100.0100 ####[facility] [address] [place], [address] GAP 19 High 5-15 [facility] Comment on above: Performed By: #### L 501.4021, L300.3900, L300.4310, L500.2500, L100.0100 ####[facility] [address] [place], [address] GFR/1.73 sq M.predicted among non-blacks MDRD (S/P/Bld) [Vol rate/Area] 20 mL/min/{1.73_m2} Low >60 [facility] Comment on above: Result Comment: mL/m in/1.73m2 CKD-EPI Creatinine Equation (2020) Performed By: #### L 501.4021, L300.3900, L300.4310, L500.2500, L100.0100 ####[facility] [address] [place], [address] Glucose [Mass/Vol] 328 mg/dL High 70-99 [facility] Comment on above: Performed By: #### L 501.4021, L300.3900, L300.4310, L500.2500, L100.0100 ####[facility] [address] [place], [address] Potassium [Moles/Vol] 4.4 mmol/L Normal 3.3-5.1 [facility] Comment on above: Performed By: #### L 501.4021, L300.3900, L300.4310, L500.2500, L100.0100 ####[facility] [address] [place], [address] Sodium [Moles/Vol] 135 mmol/L Normal 133-145 [facility] Comment on above: Performed By: #### L 501.4021, L300.3900, L300.4310, L500.2500, L100.0100 ####[facility] [address] [place], [address] Urea nitrogen [Mass/Vol] 45 mg/dL High 4-19 [facility] Comment on above: Performed By: #### L 501.4021, L300.3900, L300.4310, L500.2500, L100.0100 ####[facility] [address] [place], [address] Basophil percentageOrdered B y: Isael Bernabe on 11-30-2024 Basophils/100 WBC (Bld) 0.2 % 0-1 [facility] Bedside Glucoseon 11-30-2024 FINGERSTICK GLU 167 mg/dL High 74-106 [facility] Comment on above: Result Comment: WILDA BARROSO OF PATIENT CARE PER NURSING PROTOCOL Performed By: #### L 501.080 ####[facility] [address] [place], [address] CBC W/Diff, Automatedon 07- Absolute Lymph 1.93 X10 3/uL Normal 0.83-4.51 [facility] Comment on above: Performed By: #### L 501.4021, L300.3900, L300.4310, L500.2500, L100.0100 ####[facility] [address] [place], [address] Absolute Neut 15.5 X10 3/uL High 2.0-7.7 [facility] Comment on above: Performed By: #### L 501.4021, L300.3900, L300.4310, L500.2500, L100.0100 ####[facility] [address] [place], [address] Basophils/100 WBC (Bld) 0.2 % Normal 0-1 [facility] Comment on above: Performed By: #### L 501.4021, L300.3900, L300.4310, L500.2500, L100.0100 ####[facility] [address] [place], [address] Eosinophils/100 WBC (Bld) 0.4 % Normal 0-5 [facility] Comment on above: Performed By: #### L 501.4021, L300.3900, L300.4310, L500.2500, L100.0100 ####[facility] [address] [place], [address] Erythrocyte distribution width (RBC) [Ratio] 13.5 % Normal 11.6-14.6 [facility] Comment on above: Performed By: #### L 501.4021, L300.3900, L300.4310, L500.2500, L100.0100 ####[facility] [address] [place], [address] Hematocrit (Bld) [Volume fraction] 39.6 % Low 40-54 [facility] Comment on above: Performed By: #### L 501.4021, L300.3900, L300.4310, L500.2500, L100.0100 ####[facility] [address] [place], [address] Hemoglobin (Bld) [Mass/Vol] 12.5 g/dL Low 13.0-16.5 [facility] Comment on above: Performed By: #### L 501.4021, L300.3900, L300.4310, L500.2500, L100.0100 ####[facility] [address] [place], [address] IG% 0.700 Normal 0.0-0.9 [facility] Comment on above: Result Comment: IG% - Immature Granulocytes (promyelocytes, myelocytes andmetamyelocytes) > 1% indicates that a LEFT SHIFT is Present. Performed By: #### L 501.4021, L300.3900, L300.4310, L500.2500, L100.0100 ####[facility] [address] [place], [address] Lymphocytes/100 WBC (Bld) 10.1 % Low 19-41 [facility] Comment on above: Performed By: #### L 501.4021, L300.3900, L300.4310, L500.2500, L100.0100 ####[facility] [address] [place], [address] MCH (RBC) [Entitic mass] 29.3 pg Normal 27.0-32.0 [facility] Comment on above: Performed By: #### L 501.4021, L300.3900, L300.4310, L500.2500, L100.0100 ####[facility] [address] [place], [address] MCHC (RBC) [Mass/Vol] 31.6 g/dL Low 32-36 [facility] Comment on above: Performed By: #### L 501.4021, L300.3900, L300.4310, L500.2500, L100.0100 ####[facility] [address] [place], [address] MCV (RBC) [Entitic vol] 93.0 fL Normal 80-94 [facility] Comment on above: Performed By: #### L 501.4021, L300.3900, L300.4310, L500.2500, L100.0100 ####[facility] [address] [place], [address] Monocytes/100 WBC (Bld) 7.7 % Normal 0-10 [facility] Comment on above: Performed By: #### L 501.4021, L300.3900, L300.4310, L500.2500, L100.0100 ####[facility] [address] [place], [address] Neutrophils/100 WBC (Bld) 80.9 % High 47-70 [facility] Comment on above: Performed By: #### L 501.4021, L300.3900, L300.4310, L500.2500, L100.0100 ####[facility] [address] [place], [address] Nucleated RBC (Bld) [#/Vol] 0.1 10*3/uL Normal 0-5 [facility] Comment on above: Performed By: #### L 501.4021, L300.3900, L300.4310, L500.2500, L100.0100 ####[facility] [address] [place], [address] Platelet mean volume (Bld) [Entitic vol] 13.7 fL High 6.2-12.0 [facility] Comment on above: Performed By: #### L 501.4021, L300.3900, L300.4310, L500.2500, L100.0100 ####[facility] [address] [place], [address] Platelets (Bld) [#/Vol] 168 10*3/uL Normal 150-450 [facility] Comment on above: Performed By: #### L 501.4021, L300.3900, L300.4310, L500.2500, L100.0100 ####[facility] [address] [place], [address] RBC (Bld) [#/Vol] 4.26 10*6/uL Low 4.6-6.[address] [facility] Comment on above: Performed By: #### L 501.4021, L300.3900, L300.4310, L500.2500, L100.0100 ####[facility] [address] [place], [address] RDW SD 45.9 fl High 35.1-43.9 [facility] Comment on above: Performed By: #### L 501.4021, L300.3900, L300.4310, L500.2500, L100.0100 ####[facility] [address] [place], [address] WBC (Bld) [#/Vol] 19.2 10*3/uL High 4.4-11.[address] [facility] Comment on above: Performed By: #### L 501.4021, L300.3900, L300.4310, L500.2500, L100.0100 ####[facility] [address] [place], [address] CBC-Complete Blood Cnt No Di ffon 11-30-2024 HCT Normal 40-54 [facility] Comment on above: Result Comment: NO S PECIMEN COLLECTED Performed By: #### L 100.0500 ####[facility] [address] [place], [address] HGB Normal 13.0-16.5 [facility] Comment on above: Result Comment: NO S PECIMEN COLLECTED Performed By: #### L 100.0500 ####[facility] [address] [place], [address] MCH Normal 27.0-32.0 [facility] Comment on above: Result Comment: NO S PECIMEN COLLECTED Performed By: #### L 100.0500 ####[facility] [address] [place], [address] MCHC Normal 32-36 [facility] Comment on above: Result Comment: NO S PECIMEN COLLECTED Performed By: #### L 100.0500 ####[facility] [address] [place], [address] MCV Normal 80-94 [facility] Comment on above: Result Comment: NO S PECIMEN COLLECTED Performed By: #### L 100.0500 ####[facility] [address] [place], [address] PLT Normal 150-450 [facility] Comment on above: Result Comment: NO S PECIMEN COLLECTED Performed By: #### L 100.0500 ####[facility] [address] [place], [address] RBC Normal 4.6-6.2 [facility] Comment on above: Result Comment: NO S PECIMEN COLLECTED Performed By: #### L 100.0500 ####[facility] [address] [place], [address] RDW CV Normal 11.6-14.6 [facility] Comment on above: Result Comment: NO S PECIMEN COLLECTED Performed By: #### L 100.0500 ####[facility] [address] [place], [address] RDW SD Normal 35.1-43.9 [facility] Comment on above: Result Comment: NO S PECIMEN COLLECTED Performed By: #### L 100.0500 ####[facility] [address] [place], [address] WBC Normal 4.4-11.0 [facility] Comment on above: Result Comment: NO S PECIMEN COLLECTED Performed By: #### L 100.0500 ####[facility] [address] [place], [address] Carbon dioxide, total [Moles /volume] in Central venous bloodOrdered By: Isael Bernabe on 11-30-2024 CO2 [Moles/Vol] 18.3 mmol/L Low 21.0-32.0 [facility] Chest 1 View (Portable)on Chest 1 View (Portable) Normal [facility] Chloride assayOrdered By: Jaylen Bernabe on 11-30-2024 Chloride [Moles/Vol] 98 mmol/L 98-108 [facility] Consultation - Cardiologyon 11-30-2024 Consultation - Cardiology Normal [facility] Emergency Department Summary on 11-30-2024 Emergency Department Summary Normal [facility] Eosinophil percentageOrdered By: Isael Bernabe on 11-30-2024 Eosinophils/100 WBC (Bld) 0.4 % 0-5 [facility] Erythrocyte distribution wid th ratioOrdered By: Isael Bernabe on 11-30-2024 Erythrocyte distribution width (RBC) [Ratio] 13.5 % 11.6-14.6 [facility] Erythrocyte distribution wid th standard deviationOrdered By: Isael Bernabe on 11-30-2024 Erythrocyte distribution width (RBC) [Ratio] 45.9 fl High 35.1-43.9 [facility] Glomerular filtration rate ( GFR) estimation/1.73 sq m using serum, plasma, or whole bOrdered By: Isael Bernabe on 11-30-2024 GFR/1.73 sq M.predicted among non-blacks MDRD (S/P/Bld) [Vol rate/Area] 20 mL/min/{1.73_m2} Low >60 [facility] H AND P Exam - Hospitaliston 11-30-2024 H&P Exam - Hospitalist Normal [facility] Hematocrit Auto (Bld) [Volum e fraction]Ordered By: Isael Bernabe on 11-30-2024 Hematocrit (Bld) [Volume fraction] 39.6 % Low 40-54 [facility] Hemoglobin A1con 11-30-2024 HbA1c (Bld) [Mass fraction] 7.0 % High <=5.6 [facility] Comment on above: Result Comment: Norm al < 5.7 % Prediabetic 5.7 - 6.4 % Diabetic >or= 6.5 % Please note range changes. Performed By: #### L 949.3688 ####[facility] [address] [place], [place], [address] Hemoglobin A1c percentageOrd ered By: Abraham Ridley on 11-30-2024 HbA1c (Bld) [Mass fraction] 7.0 % High <5.7 [facility] Hemoglobin measurementOrdere d By: Isael Bernabe on 11-30-2024 Hemoglobin (Bld) [Mass/Vol] 12.5 g/dL Low 13.0-16.5 [facility] Immature granulocytes/100 WB C Auto (Bld)Ordered By: Isael Bernabe on 11-30-2024 Immature granulocytes/100 WBC (Bld) 0.700 % 0.0-0.9 [facility] L501.4021on 11-30-2024 Trop T High Sen 61 ng/L Invalid Interpretation Code <=22 [facility] Comment on above: Result Comment: Crit ical Result(s) Called at: 1621 by: MOISE MEDINA??Results read back by same. Performed By: #### L 501.4021, L300.3900, L300.4310, L500.2500, L100.0100 ####[facility] [address] [place], [address] MCV (mean corpuscular volume ) determinationOrdered By: Isael Bernabe on 11-30-2024 MCV (RBC) [Entitic vol] 93.0 fL 80-94 [facility] MR/QUALITYon 11-30-2024 MR/QUALITY Normal [facility] Mean corpuscular hemoglobin (MCH) determinationOrdered By: Isael Bernabe on 11-30-2024 MCH (RBC) [Entitic mass] 29.3 pg 27.0-32.0 [facility] Monocyte percentageOrdered B y: Isael Bernabe on 11-30-2024 Monocytes/100 WBC (Bld) 7.7 % 0-10 [facility] Neutrophil percentageOrdered By: Isael Bernabe on 11-30-2024 Neutrophils/100 WBC (Bld) 80.9 % High 47-70 [facility] Partial Thromboplast Timeon 11-30-2024 aPTT Coag (Bld) [Time] 112.9 s Invalid Interpretation Code 24.1-36.2 [facility] Comment on above: Result Comment: CRIT ICAL VALUE CALLED TO CAITLIN ANTOINE11/30/24 1720 Krysta Turcios.RESULTS READ BACK BY SAME. Performed By: #### L 501.4021, L300.3900, L300.4310, L500.2500, L100.0100 ####[facility] [address] [place], [address] Platelet countOrdered By: Jaylen Bernabe on 11-30-2024 Platelets (Bld) [#/Vol] 168 10*3/uL 150-450 [facility] Potassium measurement (mass/ volume)Ordered By: Isael Bernabe on 11-30-2024 Potassium (Unsp spec) [Mass/Vol] 4.4 mmol/L 3.3-5.1 [facility] Prothrombin Time w/INRon INR Coag (PPP) [Relative time] 1.3 {INR} Normal [facility] Comment on above: Performed By: #### L 501.4021, L300.3900, L300.4310, L500.2500, L100.0100 ####[facility] [address] [place], [address] PT Coag (PPP) [Time] 16.1 s High 11.7-14.9 [facility] Comment on above: Performed By: #### L 501.4021, L300.3900, L300.4310, L500.2500, L100.0100 ####[facility] [address] [place], [address] Prothrombin timeOrdered By: Isael Bernabe on 11-30-2024 PT Coag (PPP) [Time] 16.1 s High 11.7-14.9 [facility] RBC Auto (Bld) [#/Vol]Ordere d By: Isael Bernabe on 11-30-2024 RBC (Bld) [#/Vol] 4.26 10*6/uL Low 4.6-6.[address] [facility] Serum creatinine measurement (mass/volume)Ordered By: Isael Bernabe on 11-30-2024 Creatinine [Mass/Vol] 3.10 mg/dL High 0.70-1.20 [facility] Serum glucose measurement (m ass/volume)Ordered By: Isael Bernabe on 11-30-2024 Glucose [Mass/Vol] 328 mg/dL High 70-99 [facility] Serum or plasma calcium francine urement (mass/volume)Ordered By: Isael Bernabe on 11-30-2024 Calcium [Mass/Vol] 9.5 mg/dL 7.6-11.0 [facility] Serum or plasma urea nitroge n measurement (mass/volume)Ordered By: Isael Bernabe on 11-30-2024 Urea nitrogen [Mass/Vol] 45 mg/dL High 4-19 [facility] Sodium levelOrdered By: Isael Bernabe on 11-30-2024 Sodium [Moles/Vol] 135 mmol/L 133-145 [facility] Troponin T HS 2 HRon 025 Trop T High Sen Normal <=22 [facility] Comment on above: Result Comment: [employer] crews via OM: Ordered Performed By: #### L 499.0042 ####[facility] [address] [place], [place], [address] Troponin T HS 4 HRon 025 Trop T High Sen Normal <=22 [facility] Comment on above: Result Comment: [employer] crews via OM: Ordered Performed By: #### L 499.0043 ####[facility] [address] [place], [place], [address] Troponin T.cardiac [Mass/vol ume] in Serum or Plasma by High sensitivity methodOrdered By: Isael Bernabe on 11-30-2024 Troponin T.cardiac High sensitivity method [Mass/Vol] 61 ng/L High <22 [facility] White blood cell (WBC) count Ordered By: Isael Bernabe on 11-30-2024 WBC (Bld) [#/Vol] 19.2 10*3/uL High 4.4-11.[address] [facility] ACT Activated Clotting Timeo n 11-28-2024 ACTk CLOT TIME 205 sec High 74-137 [facility] Comment on above: Performed By: #### L 9100.0100 ####[facility] [address] [place], [place], [address] ACTk CLOT TIME 227 sec High 74-137 [facility] Comment on above: Performed By: #### L 9100.0100 ####[facility] [address] [place], [address] Anion gap in Serum or Plasma Ordered By: Jose Hay on 11-28-2024 Anion gap [Moles/Vol] 13 mmol/L 5-15 [facility] BUN/creatinine ratioOrdered By: Jose Hay on 11-28-2024 Urea nitrogen/Creatinine [Mass ratio] 15.2 mg/mg 10-20 [facility] Bilirubin, totalOrdered By: Josemorro Hay on 11-28-2024 Bilirubin [Mass/Vol] 0.78 mg/dL 0.00-1.30 [facility] CBC-Complete Blood Cnt No Di ffon 11-28-2024 Erythrocyte distribution width (RBC) [Ratio] 13.6 % Normal 11.6-14.6 [facility] Comment on above: Performed By: #### L 100.0500, L500.4050 ####[facility] [address] [place], [address] Hematocrit (Bld) [Volume fraction] 35.3 % Low 40-54 [facility] Comment on above: Performed By: #### L 100.0500, L500.4050 ####[facility] [address] [place], [address] Hemoglobin (Bld) [Mass/Vol] 11.3 g/dL Low 13.0-16.5 [facility] Comment on above: Performed By: #### L 100.0500, L500.4050 ####[facility] [address] [place], [address] MCH (RBC) [Entitic mass] 29.4 pg Normal 27.0-32.0 [facility] Comment on above: Performed By: #### L 100.0500, L500.4050 ####[facility] [address] [place], [address] MCHC (RBC) [Mass/Vol] 32.0 g/dL Normal 32-36 [facility] Comment on above: Performed By: #### L 100.0500, L500.4050 ####[facility] [address] [place], [address] MCV (RBC) [Entitic vol] 91.7 fL Normal 80-94 [facility] Comment on above: Performed By: #### L 100.0500, L500.4050 ####[facility] [address] [place], [address] Platelet mean volume (Bld) [Entitic vol] 12.6 fL High 6.2-12.0 [facility] Comment on above: Performed By: #### L 100.0500, L500.4050 ####[facility] [address] [place], [address] Platelets (Bld) [#/Vol] 108 10*3/uL Low 150-450 [facility] Comment on above: Performed By: #### L 100.0500, L500.4050 ####[facility] [address] [place], [address] RBC (Bld) [#/Vol] 3.85 10*6/uL Low 4.6-6.2 [facility] [facility] Comment on above: Performed By: #### L 100.0500, L500.4050 ####[facility] [address] [place], [address] RDW SD 46.1 fl High 35.1-43.9 [facility] Comment on above: Performed By: #### L 100.0500, L500.4050 ####[facility] [address] [place], [address] WBC (Bld) [#/Vol] 7.1 10*3/uL Normal 4.4-11.0 [facility] Comment on above: Performed By: #### L 100.0500, L500.4050 ####[facility] [address] [place], [address] Carbon dioxide, total [Moles /volume] in Central venous bloodOrdered By: Jose Hay on 11-28-2024 CO2 [Moles/Vol] 23.7 mmol/L 21.0-32.0 [facility] Chloride assayOrdered By: Jayla Hay on 11-28-2024 Chloride [Moles/Vol] 102 mmol/L 98-108 [facility] Comprehensive Metabolic Prof ilon 11-28-2024 Albumin [Mass/Vol] 3.8 g/dL Normal 3.4-4.8 [facility] Comment on above: Performed By: #### L 100.0500, L500.4050 ####[facility] [address] [place], [address] Albumin/Globulin [Mass ratio] 1.4 {ratio} Normal 0.9-2.4 [facility] Comment on above: Performed By: #### L 100.0500, L500.4050 ####[facility] [address] [place], [address] ALK PHOS 93 U/L Normal 40-129 [facility] Comment on above: Performed By: #### L 100.0500, L500.4050 ####[facility] [address] [place], [address] ALT [Catalytic activity/Vol] 27 U/L Normal <=46 [facility] Comment on above: Result Comment: Hemo lysis present, Results??could be affected.?? Performed By: #### L 100.0500, L500.4050 ####[facility] [address] [place], [address] AST [Catalytic activity/Vol] 33 U/L Normal <=37 [facility] Comment on above: Result Comment: Hemo lysis present, Results??could be affected.?? Performed By: #### L 100.0500, L500.4050 ####[facility] [address] [place], [address] Bilirubin [Mass/Vol] 0.78 mg/dL Normal 0.00-1.30 [facility] Comment on above: Performed By: #### L 100.0500, L500.4050 ####[facility] [address] [place], [address] BUN/CRE 15.2 RATIO Normal 10-20 [facility] Comment on above: Performed By: #### L 100.0500, L500.4050 ####[facility] [address] [place], [address] Calcium [Mass/Vol] 9.2 mg/dL Normal 7.6-11.0 [facility] Comment on above: Performed By: #### L 100.0500, L500.4050 ####[facility] [address] [place], [address] Chloride [Moles/Vol] 102 mmol/L Normal 98-108 [facility] Comment on above: Performed By: #### L 100.0500, L500.4050 ####[facility] [address] [place], [address] CO2 [Moles/Vol] 23.7 mmol/L Normal 21.0-32.0 [facility] Comment on above: Performed By: #### L 100.0500, L500.4050 ####[facility] [address] [place], [address] Creatinine [Mass/Vol] 1.93 mg/dL High 0.70-1.20 [facility] Comment on above: Performed By: #### L 100.0500, L500.4050 ####[facility] [address] [place], [address] ECRCL 37.66 ml/min Low 50-250 [facility] Comment on above: Performed By: #### L 100.0500, L500.4050 ####[facility] [address] [place], [address] GAP 13 Normal 5-15 [facility] Comment on above: Performed By: #### L 100.0500, L500.4050 ####[facility] [address] [place], [address] GFR/1.73 sq M.predicted among non-blacks MDRD (S/P/Bld) [Vol rate/Area] 35 mL/min/{1.73_m2} Low >60 [facility] Comment on above: Result Comment: mL/m in/1.73m2 CKD-EPI Creatinine Equation (2020) Performed By: #### L 100.0500, L500.4050 ####[facility] [address] [place], [address] Globulin (S) [Mass/Vol] 2.8 g/dL Normal 2.2-4.2 [facility] Comment on above: Performed By: #### L 100.0500, L500.4050 ####[facility] [address] [place], [address] Glucose [Mass/Vol] 130 mg/dL High 70-99 [facility] Comment on above: Performed By: #### L 100.0500, L500.4050 ####[facility] [address] [place], [address] Potassium [Moles/Vol] 4.4 mmol/L Normal 3.3-5.1 [facility] Comment on above: Result Comment: Hemo lysis present, Results??could be affected.?? Performed By: #### L 100.0500, L500.4050 ####[facility] [address] [place], [address] Sodium [Moles/Vol] 139 mmol/L Normal 133-145 [facility] Comment on above: Performed By: #### L 100.0500, L500.4050 ####[facility] [address] [place], [address] T PROT 6.6 g/dL Normal 5.9-8.4 [facility] Comment on above: Performed By: #### L 100.0500, L500.4050 ####[facility] [address] [place], [address] Urea nitrogen [Mass/Vol] 29 mg/dL High 4-19 [facility] Comment on above: Performed By: #### L 100.0500, L500.4050 ####[facility] [address] [place], [address] Erythrocyte distribution wid th ratioOrdered By: Josemorro Hay on 11-28-2024 Erythrocyte distribution width (RBC) [Ratio] 13.6 % 11.6-14.6 [facility] Erythrocyte distribution wid th standard deviationOrdered By: Jose Hay on 11-28-2024 Erythrocyte distribution width (RBC) [Ratio] 46.1 fl High 35.1-43.9 [facility] Glomerular filtration rate ( GFR) estimation/1.73 sq m using serum, plasma, or whole bOrdered By: Jose Hay on 11-28-2024 GFR/1.73 sq M.predicted among non-blacks MDRD (S/P/Bld) [Vol rate/Area] 35 mL/min/{1.73_m2} Low >60 [facility] Hematocrit Auto (Bld) [Volum e fraction]Ordered By: Jose Hay on 11-28-2024 Hematocrit (Bld) [Volume fraction] 35.3 % Low 40-54 [facility] Hemoglobin measurementOrdere d By: Jose Hay on 11-28-2024 Hemoglobin (Bld) [Mass/Vol] 11.3 g/dL Low 13.0-16.5 [facility] MCV (mean corpuscular volume ) determinationOrdered By: Jose Hay on 11-28-2024 MCV (RBC) [Entitic vol] 91.7 fL 80-94 [facility] Mean corpuscular hemoglobin (MCH) determinationOrdered By: Jose Hay on 11-28-2024 MCH (RBC) [Entitic mass] 29.4 pg 27.0-32.0 [facility] No Panel InformationOrdered By: Jose Hay on 11-28-2024 33 U/L <38 [facility] Platelet countOrdered By: Jayla Hay on 11-28-2024 Platelets (Bld) [#/Vol] 108 10*3/uL Low 150-450 [facility] Potassium measurement (mass/ volume)Ordered By: Jose Hay on 11-28-2024 Potassium (Unsp spec) [Mass/Vol] 4.4 mmol/L 3.3-5.1 [facility] RBC Auto (Bld) [#/Vol]Ordere d By: Jose Hay on 11-28-2024 RBC (Bld) [#/Vol] 3.85 10*6/uL Low 4.6-6.[address] [facility] Serum creatinine measurement (mass/volume)Ordered By: Jose Hay on 11-28-2024 Creatinine [Mass/Vol] 1.93 mg/dL High 0.70-1.20 [facility] Serum globulin measurementOr dered By: Jose Hay on 11-28-2024 Globulin (S) [Mass/Vol] 2.8 g/dL 2.2-4.2 [facility] Serum glucose measurement (m ass/volume)Ordered By: Jose Hay on 11-28-2024 Glucose [Mass/Vol] 130 mg/dL High 70-99 [facility] Serum or plasma alanine guerrero otransferase (ALT) measurementOrdered By: Jose Hay on 11-28-2024 ALT [Catalytic activity/Vol] 27 U/L <47 [facility] Serum or plasma albumin francine urement (mass/volume)Ordered By: Jose Hay on 11-28-2024 Albumin [Mass/Vol] 3.8 g/dL 3.4-4.8 [facility] Serum or plasma albumin/glob ulin mass ratioOrdered By: Jose Hay on 11-28-2024 Albumin/Globulin [Mass ratio] 1.4 {ratio} 0.9-2.4 [facility] Serum or plasma alkaline bell sphatase measurementOrdered By: Jose Hay on 11-28-2024 ALP [Catalytic activity/Vol] 93 U/L 40-129 [facility] Serum or plasma calcium francine urement (mass/volume)Ordered By: Jose Hay on 11-28-2024 Calcium [Mass/Vol] 9.2 mg/dL 7.6-11.0 [facility] Serum or plasma urea nitroge n measurement (mass/volume)Ordered By: Jose Hay on 11-28-2024 Urea nitrogen [Mass/Vol] 29 mg/dL High 4-19 [facility] Sodium levelOrdered By: Ernst Hay on 11-28-2024 Sodium [Moles/Vol] 139 mmol/L 133-145 [facility] Total proteinOrdered By: Emmanuel Hay on 11-28-2024 Protein [Mass/Vol] 6.6 g/dL 5.9-8.4 [facility] White blood cell (WBC) count Ordered By: Jose Hay on 11-28-2024 WBC (Bld) [#/Vol] 7.1 10*3/uL 4.4-11.0 [facility] 12 Lead EKGon 11-27-2024 12 Lead EKG Normal [facility] Cardiac rehabilitation repor tOrdered By: Karrie Arceo on 11-27-2024 Study report [facility] Discharge Instructionon 11-01 Discharge Instruction Normal [facility] 12 Lead EKGon 11-26-2024 12 Lead EKG Normal [facility] Absolute lymphocyte countOrd ered By: Isael Bernabe on 11-26-2024 Lymphocytes Auto (Unsp spec) [#/Vol] 1.53 10*3/uL 0.83-4.51 [facility] Anion gap in Serum or Plasma Ordered By: Isael Bernabe on 11-26-2024 Anion gap [Moles/Vol] 15 mmol/L 5-15 [facility] Automated lymphocyte count a s percentage of total leukocytesOrdered By: Isael Bernabe on 11-26-2024 Lymphocytes/100 WBC Auto (Unsp spec) 16.7 % Low 19- [facility] BUN/creatinine ratioOrdered By: Isael Bernabe on 11-26-2024 Urea nitrogen/Creatinine [Mass ratio] 18.2 mg/mg 02-19 [facility] Basic Metabolic Profile (BMP )on 11-26-2024 BUN/CRE 18.2 RATIO Normal 02-19 [facility] Comment on above: Performed By: #### L 501.4021, L503.7505, L500.2500, L100.0100 ####[facility] [address] [place], [address] Calcium [Mass/Vol] 9.2 mg/dL Normal 7.6-11.0 [facility] Comment on above: Performed By: #### L 501.4021, L503.7505, L500.2500, L100.0100 ####[facility] [address] [place], [address] Chloride [Moles/Vol] 100 mmol/L Normal 98-108 [facility] Comment on above: Performed By: #### L 501.4021, L503.7505, L500.2500, L100.0100 ####[facility] [address] [place], [address] CO2 [Moles/Vol] 21.5 mmol/L Normal 21.0-32.0 [facility] Comment on above: Performed By: #### L 501.4021, L503.7505, L500.2500, L100.0100 ####[facility] [address] [place], [address] Creatinine [Mass/Vol] 2.34 mg/dL High 0.70-1.20 [facility] Comment on above: Performed By: #### L 501.4021, L503.7505, L500.2500, L100.0100 ####[facility] [address] [place], [address] ECRCL 31.97 ml/min Low 50-250 [facility] Comment on above: Performed By: #### L 501.4021, L503.7505, L500.2500, L100.0100 ####[facility] [address] [place], [address] GAP 15 Normal 5-15 [facility] Comment on above: Performed By: #### L 501.4021, L503.7505, L500.2500, L100.0100 ####[facility] [address] [place], [address] GFR/1.73 sq M.predicted among non-blacks MDRD (S/P/Bld) [Vol rate/Area] 28 mL/min/{1.73_m2} Low >60 [facility] Comment on above: Result Comment: mL/m in/1.73m2 CKD-EPI Creatinine Equation (2020) Performed By: #### L 501.4021, L503.7505, L500.2500, L100.0100 ####[facility] [address] [place], [address] Glucose [Mass/Vol] 275 mg/dL High 70-99 [facility] Comment on above: Performed By: #### L 501.4021, L503.7505, L500.2500, L100.0100 ####[facility] [address] [place], [address] Potassium [Moles/Vol] 4.4 mmol/L Normal 3.3-5.1 [facility] Comment on above: Performed By: #### L 501.4021, L503.7505, L500.2500, L100.0100 ####[facility] [address] [place], [address] Sodium [Moles/Vol] 137 mmol/L Normal 133-145 [facility] Comment on above: Performed By: #### L 501.4021, L503.7505, L500.2500, L100.0100 ####[facility] [address] [place], [address] Urea nitrogen [Mass/Vol] 43 mg/dL High 4-19 [facility] Comment on above: Performed By: #### L 501.4021, L503.7505, L500.2500, L100.0100 ####[facility] [address] [place], [address] Basophil percentageOrdered B y: Isael Bernabe on 11-26-2024 Basophils/100 WBC (Bld) 0.3 % 0-1 [facility] Brain/Head without Contrasto n 11-26-2024 Brain/Head without Contrast Normal [facility] CBC W/Diff, Automatedon - Absolute Lymph 1.53 X10 3/uL Normal 0.83-4.51 [facility] Comment on above: Performed By: #### L 501.4021, L503.7505, L500.2500, L100.0100 ####[facility] [address] [place], [address] Absolute Neut 6.6 X10 3/uL Normal 2.0-7.7 [facility] Comment on above: Performed By: #### L 501.4021, L503.7505, L500.2500, L100.0100 ####[facility] [address] [place], [address] Basophils/100 WBC (Bld) 0.3 % Normal 0-1 [facility] Comment on above: Performed By: #### L 501.4021, L503.7505, L500.2500, L100.0100 ####[facility] [address] [place], [address] Eosinophils/100 WBC (Bld) 1.3 % Normal 0-5 [facility] Comment on above: Performed By: #### L 501.4021, L503.7505, L500.2500, L100.0100 ####[facility] [address] [place], [address] Erythrocyte distribution width (RBC) [Ratio] 13.9 % Normal 11.6-14.6 [facility] Comment on above: Performed By: #### L 501.4021, L503.7505, L500.2500, L100.0100 ####[facility] [address] [place], [address] Hematocrit (Bld) [Volume fraction] 36.7 % Low 40-54 [facility] Comment on above: Performed By: #### L 501.4021, L503.7505, L500.2500, L100.0100 ####[facility] [address] [place], [address] Hemoglobin (Bld) [Mass/Vol] 11.8 g/dL Low 13.0-16.5 [facility] Comment on above: Performed By: #### L 501.4021, L503.7505, L500.2500, L100.0100 ####[facility] [address] [place], [address] IG% 0.400 Normal 0.0-0.9 [facility] Comment on above: Result Comment: IG% - Immature Granulocytes (promyelocytes, myelocytes andmetamyelocytes) > 1% indicates that a LEFT SHIFT is Present. Performed By: #### L 501.4021, L503.7505, L500.2500, L100.0100 ####[facility] [address] [place], [address] Lymphocytes/100 WBC (Bld) 16.7 % Low 19-41 [facility] Comment on above: Performed By: #### L 501.4021, L503.7505, L500.2500, L100.0100 ####[facility] [address] [place], [address] MCH (RBC) [Entitic mass] 29.2 pg Normal 27.0-32.0 [facility] Comment on above: Performed By: #### L 501.4021, L503.7505, L500.2500, L100.0100 ####[facility] [address] [place], [address] MCHC (RBC) [Mass/Vol] 32.2 g/dL Normal 32-36 [facility] Comment on above: Performed By: #### L 501.4021, L503.7505, L500.2500, L100.0100 ####[facility] [address] [place], [address] MCV (RBC) [Entitic vol] 90.8 fL Normal 80-94 [facility] Comment on above: Performed By: #### L 501.4021, L503.7505, L500.2500, L100.0100 ####[facility] [address] [place], [address] Monocytes/100 WBC (Bld) 9.5 % Normal 0-10 [facility] Comment on above: Performed By: #### L 501.4021, L503.7505, L500.2500, L100.0100 ####[facility] [address] [place], [address] Neutrophils/100 WBC (Bld) 71.8 % High 47-70 [facility] Comment on above: Performed By: #### L 501.4021, L503.7505, L500.2500, L100.0100 ####[facility] [address] [place], [address] Nucleated RBC (Bld) [#/Vol] 0 10*3/uL Normal 0-5 [facility] Comment on above: Performed By: #### L 501.4021, L503.7505, L500.2500, L100.0100 ####[facility] [address] [place], [address] Platelet mean volume (Bld) [Entitic vol] 12.8 fL High 6.2-12.0 [facility] Comment on above: Performed By: #### L 501.4021, L503.7505, L500.2500, L100.0100 ####[facility] [address] [place], [address] Platelets (Bld) [#/Vol] 132 10*3/uL Low 150-450 [facility] Comment on above: Performed By: #### L 501.4021, L503.7505, L500.2500, L100.0100 ####[facility] [address] [place], [address] RBC (Bld) [#/Vol] 4.04 10*6/uL Low 4.6-6.[address] [facility] Comment on above: Performed By: #### L 501.4021, L503.7505, L500.2500, L100.0100 ####[facility] [address] [place], [address] RDW SD 46.6 fl High 35.1-43.9 [facility] Comment on above: Performed By: #### L 501.4021, L503.7505, L500.2500, L100.0100 ####[facility] [address] [place], [address] WBC (Bld) [#/Vol] 9.2 10*3/uL Normal 4.4-11.0 [facility] Comment on above: Performed By: #### L 501.4021, L503.7505, L500.2500, L100.0100 ####[facility] [address] [place], [address] Carbon dioxide, total [Moles /volume] in Central venous bloodOrdered By: Isael Bernabe on 11-26-2024 CO2 [Moles/Vol] 21.5 mmol/L 21.0-32.0 [facility] Chest 1 View (Portable)on Chest 1 View (Portable) Normal [facility] Chloride assayOrdered By: Jaylen Bernabe on 11-26-2024 Chloride [Moles/Vol] 100 mmol/L 98-108 [facility] Emergency Department Summary on 11-26-2024 Emergency Department Summary Normal [facility] Eosinophil percentageOrdered By: Isael Bernabe on 11-26-2024 Eosinophils/100 WBC (Bld) 1.3 % 0-5 [facility] Erythrocyte distribution wid th ratioOrdered By: Isael Bernabe on 11-26-2024 Erythrocyte distribution width (RBC) [Ratio] 13.9 % 11.6-14.6 [facility] Erythrocyte distribution wid th standard deviationOrdered By: Isael Bernabe on 11-26-2024 Erythrocyte distribution width (RBC) [Ratio] 46.6 fl High 35.1-43.9 [facility] Glomerular filtration rate ( GFR) estimation/1.73 sq m using serum, plasma, or whole bOrdered By: Isael Bernabe on 11-26-2024 GFR/1.73 sq M.predicted among non-blacks MDRD (S/P/Bld) [Vol rate/Area] 28 mL/min/{1.73_m2} Low >60 [facility] Hand Min 3 Viewson 5 Hand Min 3 Views Normal [facility] Hematocrit Auto (Bld) [Volum e fraction]Ordered By: Isael Bernabe on 11-26-2024 Hematocrit (Bld) [Volume fraction] 36.7 % Low 40-54 [facility] Hemoglobin measurementOrdere d By: Isael Bernabe on 11-26-2024 Hemoglobin (Bld) [Mass/Vol] 11.8 g/dL Low 13.0-16.5 [facility] Immature granulocytes/100 WB C Auto (Bld)Ordered By: Isael Bernabe on 11-26-2024 Immature granulocytes/100 WBC (Bld) 0.400 % 0.0-0.9 [facility] Knee 4 or More Viewson 11-26 Knee 4 or More Views Normal [facility] [facility] [place] 4 or More Views Normal [facility] L501.4021on 11-26-2024 Trop T High Sen 18 ng/L Normal <=22 [facility] Comment on above: Performed By: #### L 501.4021, L503.7505, L500.2500, L100.0100 ####[facility] [address] [place], [address] MCV (mean corpuscular volume ) determinationOrdered By: Iasel Bernabe on 11-26-2024 MCV (RBC) [Entitic vol] 90.8 fL 80-94 [facility] Mean corpuscular hemoglobin (MCH) determinationOrdered By: Isael Bernabe on 11-26-2024 MCH (RBC) [Entitic mass] 29.2 pg 27.0-32.0 [facility] Monocyte percentageOrdered B y: Isael Bernabe on 11-26-2024 Monocytes/100 WBC (Bld) 9.5 % 0-10 [facility] Natriuretic peptide.B prohor efrem N-Terminal [Mass/volume] in Serum or PlasmaOrdered By: Isael Bernabe on 11-26-2024 Natriuretic peptide.B prohormone N-Terminal [Mass/Vol] 162 pg/mL <1800 [facility] Neutrophil percentageOrdered By: Isael Bernabe on 11-26-2024 Neutrophils/100 WBC (Bld) 71.8 % High 47-70 [facility] Platelet countOrdered By: Jaylen Bernabe on 11-26-2024 Platelets (Bld) [#/Vol] 132 10*3/uL Low 150-450 [facility] Potassium measurement (mass/ volume)Ordered By: Isael Bernabe on 11-26-2024 Potassium (Unsp spec) [Mass/Vol] 4.4 mmol/L 3.3-5.1 [facility] Pro- Brain NATRIURETIC PEPTI Sharon 11-26-2024 Natriuretic peptide B (Bld) [Mass/Vol] 162 pg/mL Normal <=1800 [facility] Comment on above: Result Comment: Hear t Failure Unlikely: < 300 pg/mLHeart Failure Likely< 50 Years: > 450 pg/mL50-75 Years: > 900 pg/mL>75 Years: > 1800 pg/mL Performed By: #### L 501.4021, L503.7505, L500.2500, L100.0100 ####[facility] [address] [place], [place], [address] RBC Auto (Bld) [#/Vol]Ordere d By: Isael Bernabe on 11-26-2024 RBC (Bld) [#/Vol] 4.04 10*6/uL Low 4.6-6.[address] [facility] Serum creatinine measurement (mass/volume)Ordered By: Isael Bernabe on 11-26-2024 Creatinine [Mass/Vol] 2.34 mg/dL High 0.70-1.20 [facility] Serum glucose measurement (m ass/volume)Ordered By: Isael Bernabe on 11-26-2024 Glucose [Mass/Vol] 275 mg/dL High 70-99 [facility] Serum or plasma calcium francine urement (mass/volume)Ordered By: Isael Bernabe on 11-26-2024 Calcium [Mass/Vol] 9.2 mg/dL 7.6-11.0 [facility] Serum or plasma urea nitroge n measurement (mass/volume)Ordered By: Isael Bernabe on 11-26-2024 Urea nitrogen [Mass/Vol] 43 mg/dL High 4-19 [facility] Sodium levelOrdered By: Isael Bernabe on 11-26-2024 Sodium [Moles/Vol] 137 mmol/L 133-145 [facility] Spine Cervical without Contr ason 11-26-2024 Spine Cervical without Contras Normal [facility] Troponin T HS 2 HRon 025 Trop T High Sen 20 ng/L Normal <=22 [facility] Comment on above: Performed By: #### L 499.0042 ####[facility] [address] [place], [address] Troponin T HS 4 HRon 025 Trop T High Sen Normal <=22 [facility] Comment on above: Result Comment: Canc elled via OM: Order cancelled - Patient discharged Performed By: #### L 499.0043 ####[facility] [address] [place], [place], [id number] Troponin T.cardiac [Mass/vol ume] in Serum or Plasma by High sensitivity methodOrdered By: Isael Bernabe on 11-26-2024 Troponin T.cardiac High sensitivity method [Mass/Vol] 20 ng/L <22 [facility] Troponin T.cardiac High sensitivity method [Mass/Vol] 18 ng/L <22 [facility] White blood cell (WBC) count Ordered By: Isael Bernabe on 11-26-2024 WBC (Bld) [#/Vol] 9.2 10*3/uL 4.4-11.0 [facility] Absolute lymphocyte countOrd ered By: Gustabo Pérez on 11-22-2024 Lymphocytes Auto (Unsp spec) [#/Vol] 1.37 10*3/uL 0.83-4.51 [facility] Anion gap in Serum or Plasma Ordered By: Gustabo Pérez on 11-22-2024 Anion gap [Moles/Vol] 15 mmol/L 5-15 [facility] Automated lymphocyte count a s percentage of total leukocytesOrdered By: Gustabo Pérez on 11-22-2024 Lymphocytes/100 WBC Auto (Unsp spec) 16.1 % Low 19-41 [facility] BUN/creatinine ratioOrdered By: Gustabo Pérez on 11-22-2024 Urea nitrogen/Creatinine [Mass ratio] 15.6 mg/mg 10- [facility] Basic Metabolic Profile (BMP )on 11-22-2024 BUN/CRE 15.6 RATIO Normal - [facility] Comment on above: Performed By: #### L 100.0100, L500.2500, L503.7505 ####[facility] [address] [place], [place], [id number] Calcium [Mass/Vol] 9.1 mg/dL Normal 7.6-11.0 [facility] Comment on above: Performed By: #### L 100.0100, L500.2500, L503.7505 ####[facility] [address] [place], [address] Chloride [Moles/Vol] 102 mmol/L Normal 98-108 [facility] Comment on above: Performed By: #### L 100.0100, L500.2500, L503.7505 ####[facility] [address] [place], [address] CO2 [Moles/Vol] 21.6 mmol/L Normal 21.0-32.0 [facility] Comment on above: Performed By: #### L 100.0100, L500.2500, L503.7505 ####[facility] [address] [place], [address] Creatinine [Mass/Vol] 2.51 mg/dL High 0.70-1.20 [facility] Comment on above: Performed By: #### L 100.0100, L500.2500, L503.7505 ####[facility] [address] [place], [address] GAP 15 Normal 5-15 [facility] Comment on above: Performed By: #### L 100.0100, L500.2500, L503.7505 ####[facility] [address] [place], [address] GFR/1.73 sq M.predicted among non-blacks MDRD (S/P/Bld) [Vol rate/Area] 25 mL/min/{1.73_m2} Low >60 [facility] Comment on above: Result Comment: mL/m in/1.73m2 CKD-EPI Creatinine Equation (2020) Performed By: #### L 100.0100, L500.2500, L503.7505 ####[facility] [address] [place], [address] Glucose [Mass/Vol] 262 mg/dL High 70-99 [facility] Comment on above: Performed By: #### L 100.0100, L500.2500, L503.7505 ####[facility] [address] [place], [address] Potassium [Moles/Vol] 4.8 mmol/L Normal 3.3-5.1 [facility] Comment on above: Performed By: #### L 100.0100, L500.2500, L503.7505 ####[facility] [address] [place], [address] Sodium [Moles/Vol] 139 mmol/L Normal 133-145 [facility] Comment on above: Performed By: #### L 100.0100, L500.2500, L503.7505 ####[facility] [address] [place], [address] Urea nitrogen [Mass/Vol] 39 mg/dL High 4-19 [facility] Comment on above: Performed By: #### L 100.0100, L500.2500, L503.7505 ####[facility] [address] [place], [address] Basophil percentageOrdered B y: Gustabo [facility] on 11-22-2024 Basophils/100 WBC (Bld) 0.4 % 0-1 [facility] CBC W/Diff, Automatedon 11-01 Absolute Lymph 1.37 X10 3/uL Normal 0.83-4.51 [facility] Comment on above: Performed By: #### L 100.0100, L500.2500, L503.7505 ####[facility] [address] [place], [address] Absolute Neut 6.2 X10 3/uL Normal 2.0-7.7 [facility] Comment on above: Performed By: #### L 100.0100, L500.2500, L503.7505 ####[facility] [address] [place], [address] Basophils/100 WBC (Bld) 0.4 % Normal 0-1 [facility] Comment on above: Performed By: #### L 100.0100, L500.2500, L503.7505 ####[facility] [address] [place], [address] Eosinophils/100 WBC (Bld) 1.5 % Normal 0-5 [facility] Comment on above: Performed By: #### L 100.0100, L500.2500, L503.7505 ####[facility] [address] [place], [address] Erythrocyte distribution width (RBC) [Ratio] 13.8 % Normal 11.6-14.6 [facility] Comment on above: Performed By: #### L 100.0100, L500.2500, L503.7505 ####[facility] [address] [place], [address] Hematocrit (Bld) [Volume fraction] 36.5 % Low 40-54 [facility] Comment on above: Performed By: #### L 100.0100, L500.2500, L503.7505 ####[facility] [address] [place], [address] Hemoglobin (Bld) [Mass/Vol] 11.8 g/dL Low 13.0-16.5 [facility] Comment on above: Performed By: #### L 100.0100, L500.2500, L503.7505 ####[facility] [address] [place], [address] IG% 0.500 Normal 0.0-0.9 [facility] Comment on above: Result Comment: IG% - Immature Granulocytes (promyelocytes, myelocytes andmetamyelocytes) > 1% indicates that a LEFT SHIFT is Present. Performed By: #### L 100.0100, L500.2500, L503.7505 ####[facility] [address] [place], [address] Lymphocytes/100 WBC (Bld) 16.1 % Low 19-41 [facility] Comment on above: Performed By: #### L 100.0100, L500.2500, L503.7505 ####[facility] [address] [place], [address] MCH (RBC) [Entitic mass] 29.6 pg Normal 27.0-32.0 [facility] Comment on above: Performed By: #### L 100.0100, L500.2500, L503.7505 ####[facility] [address] [place], [address] MCHC (RBC) [Mass/Vol] 32.3 g/dL Normal 32-36 [facility] Comment on above: Performed By: #### L 100.0100, L500.2500, L503.7505 ####[facility] [address] [place], [address] MCV (RBC) [Entitic vol] 91.7 fL Normal 80-94 [facility] Comment on above: Performed By: #### L 100.0100, L500.2500, L503.7505 ####[facility] [address] [place], [address] Monocytes/100 WBC (Bld) 9.0 % Normal 0-10 [facility] Comment on above: Performed By: #### L 100.0100, L500.2500, L503.7505 ####[facility] [address] [place], [address] Neutrophils/100 WBC (Bld) 72.5 % High 47-70 [facility] Comment on above: Performed By: #### L 100.0100, L500.2500, L503.7505 ####[facility] [address] [place], [address] Nucleated RBC (Bld) [#/Vol] 0 10*3/uL Normal 0-5 [facility] Comment on above: Performed By: #### L 100.0100, L500.2500, L503.7505 ####[facility] [address] [place], [address] Platelet mean volume (Bld) [Entitic vol] 13.0 fL High 6.2-12.0 [facility] Comment on above: Performed By: #### L 100.0100, L500.2500, L503.7505 ####[facility] [address] [place], [address] Platelets (Bld) [#/Vol] 148 10*3/uL Low 150-450 [facility] Comment on above: Performed By: #### L 100.0100, L500.2500, L503.7505 ####[facility] [address] [place], [address] RBC (Bld) [#/Vol] 3.98 10*6/uL Low 4.6-6.[address] [facility] Comment on above: Performed By: #### L 100.0100, L500.2500, L503.7505 ####[facility] [address] [place], [address] RDW SD 47.0 fl High 35.1-43.9 [facility] Comment on above: Performed By: #### L 100.0100, L500.2500, L503.7505 ####[facility] [address] [place], [address] WBC (Bld) [#/Vol] 8.5 10*3/uL Normal 4.4-11.0 [facility] Comment on above: Performed By: #### L 100.0100, L500.2500, L503.7505 ####[facility] [address] [place], [address] Carbon dioxide, total [Moles /volume] in Central venous bloodOrdered By: Gustabo Pérez on 11-22-2024 CO2 [Moles/Vol] 21.6 mmol/L 21.0-32.0 [facility] Cardiology Visit Reporton Cardiology Visit Report Normal [facility] Chest PA and Lateralon 11-22 Chest PA and Lateral Normal [facility] Chloride assayOrdered By: Lydia Pérez on 11-22-2024 Chloride [Moles/Vol] 102 mmol/L 98-108 [facility] Eosinophil percentageOrdered By: Gustabo Pérez on 11-22-2024 Eosinophils/100 WBC (Bld) 1.5 % 0-5 [facility] Erythrocyte distribution wid th ratioOrdered By: Gustabo Pérez on 11-22-2024 Erythrocyte distribution width (RBC) [Ratio] 13.8 % 11.6-14.6 [facility] Erythrocyte distribution wid th standard deviationOrdered By: Gustabo Pérez on 11-22-2024 Erythrocyte distribution width (RBC) [Ratio] 47.0 fl High 35.1-43.9 [facility] Glomerular filtration rate ( GFR) estimation/1.73 sq m using serum, plasma, or whole bOrdered By: Gustabo Pérez on 11-22-2024 GFR/1.73 sq M.predicted among non-blacks MDRD (S/P/Bld) [Vol rate/Area] 25 mL/min/{1.73_m2} Low >60 [facility] Hematocrit Auto (Bld) [Volum e fraction]Ordered By: Gustabo Pérez on 11-22-2024 Hematocrit (Bld) [Volume fraction] 36.5 % Low 40-54 [facility] Hemoglobin measurementOrdere d By: Gustabo Pérez on 11-22-2024 Hemoglobin (Bld) [Mass/Vol] 11.8 g/dL Low 13.0-16.5 [facility] Immature granulocytes/100 WB C Auto (Bld)Ordered By: Gustabo Pérez on 11-22-2024 Immature granulocytes/100 WBC (Bld) 0.500 % 0.0-0.9 [facility] L503.7505on 11-22-2024 Natriuretic peptide B (Bld) [Mass/Vol] 188 pg/mL Normal <=1800 [facility] Comment on above: Result Comment: Hear t Failure Unlikely: < 300 pg/mLHeart Failure Likely< 50 Years: > 450 pg/mL50-75 Years: > 900 pg/mL>75 Years: > 1800 pg/mL Performed By: #### L 100.0100, L500.2500, L503.7505 ####[facility] [address] [place], [address] MCV (mean corpuscular volume ) determinationOrdered By: Gustabo Pérez on 11-22-2024 MCV (RBC) [Entitic vol] 91.7 fL 80-94 [facility] Mean corpuscular hemoglobin (MCH) determinationOrdered By: Gustabo Pérez on 11-22-2024 MCH (RBC) [Entitic mass] 29.6 pg 27.0-32.0 [facility] Monocyte percentageOrdered B y: Gustabo Pérez on 11-22-2024 Monocytes/100 WBC (Bld) 9.0 % 0-10 [facility] Natriuretic peptide.B prohor efrem N-Terminal [Mass/volume] in Serum or PlasmaOrdered By: Gustabo Pérez on 11-22-2024 Natriuretic peptide.B prohormone N-Terminal [Mass/Vol] 188 pg/mL <1800 [facility] Neutrophil percentageOrdered By: Gustabo Pérez on 11-22-2024 Neutrophils/100 WBC (Bld) 72.5 % High 47-70 [facility] Platelet countOrdered By: Lydia Pérez on 11-22-2024 Platelets (Bld) [#/Vol] 148 10*3/uL Low 150-450 [facility] Potassium measurement (mass/ volume)Ordered By: Gustabo Pérez on 11-22-2024 Potassium (Unsp spec) [Mass/Vol] 4.8 mmol/L 3.3-5.1 [facility] RBC Auto (Bld) [#/Vol]Ordere d By: Gustabo Pérez on 11-22-2024 RBC (Bld) [#/Vol] 3.98 10*6/uL Low 4.6-6.[address] [facility] Serum creatinine measurement (mass/volume)Ordered By: Gustabo Pérez on 11-22-2024 Creatinine [Mass/Vol] 2.51 mg/dL High 0.70-1.20 [facility] Serum glucose measurement (m ass/volume)Ordered By: Gustabo Pérez on 11-22-2024 Glucose [Mass/Vol] 262 mg/dL High 70-99 [facility] Serum or plasma calcium francine urement (mass/volume)Ordered By: Gustabo Pérez on 11-22-2024 Calcium [Mass/Vol] 9.1 mg/dL 7.6-11.0 [facility] Serum or plasma urea nitroge n measurement (mass/volume)Ordered By: Gustabo Pérez on 11-22-2024 Urea nitrogen [Mass/Vol] 39 mg/dL High 4-19 [facility] Sodium levelOrdered By: Gustabo Pérez on 11-22-2024 Sodium [Moles/Vol] 139 mmol/L 133-145 [facility] White blood cell (WBC) count Ordered By: Gustabo Pérez on 11-22-2024 WBC (Bld) [#/Vol] 8.5 10*3/uL 4.4-11.0 [facility] Shoulder min 2 Viewson 11-20 Shoulder min 2 Views Normal [facility] Cardiovascular stress test r eportOrdered By: Jose Hay on 11-13-2024 Study report [facility] [address] [place] [address] MR#: [id number] Acct: [id number] Name: ERIBERTO RICO Rep #: [id number] : 1945 79 From: Jose Hay MD Primary Care: Dr. 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 There is end systolic [...] of 62%. This note was generated with [employer] dictation software. It may contain incorrectwords, spelling, and punctuation that were not noted in checking the note beforesigning. 11/13/24 1539 Date _ Jose Hay MD CC: YRN Pérez; Dr. Marycarmen Rodriguez, DO ~ Date Dictated: 11/13/241536 Date Transcribed: 11/13/241536 Wildlife Ecology Professor: JAYLA Signed [facility] Work Phone: Stress Reporton 11-13-2024 Stress Report Normal [facility] Echo Complete W/ Contraston 11-10-2024 Echo Complete W/ Contrast Normal [facility] Echocardiogram study reportO rdered By: Lance Rodriguez on 11-10-2024 Study report [facility] [address] [place] [address]. [place] [address] Echo Complete W/ Contrast 11/10/24 0920 MR#: [id number] Acct: [id number] Name: ERIBERTO RICO Rep #:[id number] : [...] Dr. Marycarmen Rodriguez, DO; Maren Olivas NP ~ Date Dictated: 11/10/24919 Date Transcribed: 11/10/24 121 Wildlife Ecology Professor: Signed [facility] Absolute lymphocyte countOrd ered By: Marycarmen Rodriguez on 11-09-2024 Lymphocytes Auto (Unsp spec) [#/Vol] 1.23 10*3/uL 0.83-4.51 [facility] Absolute neutrophil countOrd ered By: Marycarmen Rdoriguez on 11-09-2024 Neutrophils (Bld) [#/Vol] 4.1 10*3/uL 2.0-7.7 [facility] Anion gap in Serum or Plasma Ordered By: Marycarmen Rodriguez on 11-09-2024 Anion gap [Moles/Vol] 14 mmol/L 09-14 [facility] Automated lymphocyte count a s percentage of total leukocytesOrdered By: Marycarmen Rodriguez on 11-09-2024 Lymphocytes/100 WBC Auto (Unsp spec) 19.9 % [facility] BUN/creatinine ratioOrdered By: Marycarmen Rodriguez on 11-09-2024 Urea nitrogen/Creatinine [Mass ratio] 19.7 mg/mg - [facility] Basic Metabolic Profile (BMP )on 11-09-2024 BUN/CRE 19.7 RATIO Normal - [facility] Comment on above: Performed By: #### L 503.7505, L500.2500, L100.0100 ####[facility] [address] [place], [address] Calcium [Mass/Vol] 9.3 mg/dL Normal 7.6-11.0 [facility] Comment on above: Performed By: #### L 503.7505, L500.2500, L100.0100 ####[facility] [address] [place], [address] Chloride [Moles/Vol] 102 mmol/L Normal 98-108 [facility] Comment on above: Performed By: #### L 503.7505, L500.2500, L100.0100 ####[facility] [address] [place], [address] CO2 [Moles/Vol] 22.5 mmol/L Normal 21.0-32.0 [facility] Comment on above: Performed By: #### L 503.7505, L500.2500, L100.0100 ####[facility] [address] [place], [address] Creatinine [Mass/Vol] 2.49 mg/dL High 0.70-1.20 [facility] Comment on above: Performed By: #### L 503.7505, L500.2500, L100.0100 ####[facility] [address] [place], [address] GAP 14 Normal 5-15 [facility] Comment on above: Performed By: #### L 503.7505, L500.2500, L100.0100 ####[facility] [address] [place], [address] GFR/1.73 sq M.predicted among non-blacks MDRD (S/P/Bld) [Vol rate/Area] 26 mL/min/{1.73_m2} Low >60 [facility] Comment on above: Result Comment: mL/m in/1.73m2 CKD-EPI Creatinine Equation (2020) Performed By: #### L 503.7505, L500.2500, L100.0100 ####[facility] [facility] [address] [place], [address] Glucose [Mass/Vol] 169 mg/dL High 70-99 [facility] Comment on above: Performed By: #### L 503.7505, L500.2500, L100.0100 ####[facility] [address] [place], [address] Potassium [Moles/Vol] 4.6 mmol/L Normal 3.3-5.1 [facility] Comment on above: Performed By: #### L 503.7505, L500.2500, L100.0100 ####[facility] [address] [place], [address] Sodium [Moles/Vol] 139 mmol/L Normal 133-145 [facility] Comment on above: Performed By: #### L 503.7505, L500.2500, L100.0100 ####[facility] [address] [place], [address] Urea nitrogen [Mass/Vol] 49 mg/dL High 4-19 [facility] Comment on above: Performed By: #### L 503.7505, L500.2500, L100.0100 ####[facility] [address] [place], [address] Basophil percentageOrdered B y: Marycarmen Rodriguez on 11-09-2024 Basophils/100 WBC (Bld) 0.3 % 0-1 [facility] CBC W/Diff, Automatedon 10-31 0-2024 Absolute Lymph 1.23 X10 3/uL Normal 0.83-4.51 [facility] Comment on above: Performed By: #### L 503.7505, L500.2500, L100.0100 ####[facility] [address] [place], [address] Absolute Neut 4.1 X10 3/uL Normal 2.0-7.7 [facility] Comment on above: Performed By: #### L 503.7505, L500.2500, L100.0100 ####[facility] [address] [place], [address] Basophils/100 WBC (Bld) 0.3 % Normal 0-1 [facility] Comment on above: Performed By: #### L 503.7505, L500.2500, L100.0100 ####[facility] [address] [place], [address] Eosinophils/100 WBC (Bld) 2.4 % Normal 0-5 [facility] Comment on above: Performed By: #### L 503.7505, L500.2500, L100.0100 ####[facility] [address] [place], [address] Erythrocyte distribution width (RBC) [Ratio] 14.1 % Normal 11.6-14.6 [facility] Comment on above: Performed By: #### L 503.7505, L500.2500, L100.0100 ####[facility] [address] [place], [address] Hematocrit (Bld) [Volume fraction] 38.2 % Low 40-54 [facility] Comment on above: Performed By: #### L 503.7505, L500.2500, L100.0100 ####[facility] [address] [place], [address] Hemoglobin (Bld) [Mass/Vol] 12.2 g/dL Low 13.0-16.5 [facility] Comment on above: Performed By: #### L 503.7505, L500.2500, L100.0100 ####[facility] [address] [place], [address] IG% 0.500 Normal 0.0-0.9 [facility] Comment on above: Result Comment: IG% - Immature Granulocytes (promyelocytes, myelocytes andmetamyelocytes) > 1% indicates that a LEFT SHIFT is Present. Performed By: #### L 503.7505, L500.2500, L100.0100 ####[facility] [address] [place], [address] Lymphocytes/100 WBC (Bld) 19.9 % Normal 19-41 [facility] Comment on above: Performed By: #### L 503.7505, L500.2500, L100.0100 ####[facility] [address] [place], [address] MCH (RBC) [Entitic mass] 29.6 pg Normal 27.0-32.0 [facility] Comment on above: Performed By: #### L 503.7505, L500.2500, L100.0100 ####[facility] [address] [place], [address] MCHC (RBC) [Mass/Vol] 31.9 g/dL Low 32-36 [facility] Comment on above: Performed By: #### L 503.7505, L500.2500, L100.0100 ####[facility] [address] [place], [address] MCV (RBC) [Entitic vol] 92.7 fL Normal 80-94 [facility] Comment on above: Performed By: #### L 503.7505, L500.2500, L100.0100 ####[facility] [address] [place], [address] Monocytes/100 WBC (Bld) 10.4 % High 0-10 [facility] Comment on above: Performed By: #### L 503.7505, L500.2500, L100.0100 ####[facility] [address] [place], [address] Neutrophils/100 WBC (Bld) 66.5 % Normal 47-70 [facility] Comment on above: Performed By: #### L 503.7505, L500.2500, L100.0100 ####[facility] [address] [place], [address] Nucleated RBC (Bld) [#/Vol] 0 10*3/uL Normal 0-5 [facility] Comment on above: Performed By: #### L 503.7505, L500.2500, L100.0100 ####[facility] [address] [place], [address] Platelet mean volume (Bld) [Entitic vol] 12.7 fL High 6.2-12.0 [facility] Comment on above: Performed By: #### L 503.7505, L500.2500, L100.0100 ####[facility] [address] [place], [address] Platelets (Bld) [#/Vol] 120 10*3/uL Low 150-450 [facility] Comment on above: Performed By: #### L 503.7505, L500.2500, L100.0100 ####[facility] [address] [place], [address] RBC (Bld) [#/Vol] 4.12 10*6/uL Low 4.6-6.[address] [facility] Comment on above: Performed By: #### L 503.7505, L500.2500, L100.0100 ####[facility] [address] [place], [address] RDW SD 47.8 fl High 35.1-43.9 [facility] Comment on above: Performed By: #### L 503.7505, L500.2500, L100.0100 ####[facility] [address] [place], [address] WBC (Bld) [#/Vol] 6.2 10*3/uL Normal 4.4-11.0 [facility] Comment on above: Performed By: #### L 503.7505, L500.2500, L100.0100 ####[facility] [address] [place], [address] Carbon dioxide, total [Moles /volume] in Central venous bloodOrdered By: Marycarmen Rodriguez on 11-09-2024 CO2 [Moles/Vol] 22.5 mmol/L 21.0-32.0 [facility] Chloride assayOrdered By: Ap Rodriguez on 11-09-2024 Chloride [Moles/Vol] 102 mmol/L 98-108 [facility] Eosinophil percentageOrdered By: Marycarmen Rodriguez on 11-09-2024 Eosinophils/100 WBC (Bld) 2.4 % 0-5 [facility] Erythrocyte distribution wid th ratioOrdered By: Marycarmen Rodriguez on 11-09-2024 Erythrocyte distribution width (RBC) [Ratio] 14.1 % 11.6-14.6 [facility] Erythrocyte distribution wid th standard deviationOrdered By: Marycarmen Rodriguez on 11-09-2024 Erythrocyte distribution width (RBC) [Ratio] 47.8 fl High 35.1-43.9 [facility] Glomerular filtration rate ( GFR) estimation/1.73 sq m using serum, plasma, or whole bOrdered By: Marycarmen Rodriguez on 11-09-2024 GFR/1.73 sq M.predicted among non-blacks MDRD (S/P/Bld) [Vol rate/Area] 26 mL/min/{1.73_m2} Low >60 [facility] Comment on above: mL/min/1.73m2 CKD-EP I Creatinine Equation (2020) Hematocrit Auto (Bld) [Volum e fraction]Ordered By: Marycarmen Rodriguez on 11-09-2024 Hematocrit (Bld) [Volume fraction] 38.2 % Low 40-54 [facility] Hemoglobin measurementOrdere d By: Marycarmen Rodriguez on 11-09-2024 Hemoglobin (Bld) [Mass/Vol] 12.2 g/dL Low 13.0-16.5 [facility] Immature granulocytes/100 WB C Auto (Bld)Ordered By: Marycarmen Rodriguez on 11-09-2024 Immature granulocytes/100 WBC (Bld) 0.500 % 0.0-0.9 [facility] Comment on above: IG% - Immature Granu locytes (promyelocytes, myelocytes and metamyelocytes) > 1% indicates that a LEFT SHIFT is Present. L503.7505on 11-09-2024 Natriuretic peptide B (Bld) [Mass/Vol] 91 pg/mL Normal <=1800 [facility] Comment on above: Result Comment: Hear t Failure Unlikely: < 300 pg/mLHeart Failure Likely< 50 Years: > 450 pg/mL50-75 Years: > 900 pg/mL>75 Years: > 1800 pg/mL Performed By: #### L 503.7505, L500.2500, L100.0100 ####[facility] [address] [place], [address] MCV (mean corpuscular volume ) determinationOrdered By: Marycarmen Rodriguez on 11-09-2024 MCV (RBC) [Entitic vol] 92.7 fL 80-94 [facility] Mean corpuscular hemoglobin (MCH) determinationOrdered By: Marycarmen Rodriguez on 11-09-2024 MCH (RBC) [Entitic mass] 29.6 pg 27.0-32.0 [facility] Mean corpuscular hemoglobin concentration (MCHC) determinationOrdered By: Marycarmen Rodriguez on 11-09-2024 MCHC (RBC) [Mass/Vol] 31.9 g/dL Low 32-36 [facility] Mean platelet volume determi nationOrdered By: Marycarmen Rodriguez on 11-09-2024 Platelet mean volume (Bld) [Entitic vol] 12.7 fL High 6.2-12.0 [facility] Monocyte percentageOrdered B y: Marycarmen Rodriguez on 11-09-2024 Monocytes/100 WBC (Bld) 10.4 % High 0-10 [facility] Natriuretic peptide.B prohor efrem N-Terminal [Mass/volume] in Serum or PlasmaOrdered By: Marycarmen Rodriguez on 11-09-2024 Natriuretic peptide.B prohormone N-Terminal [Mass/Vol] 91 pg/mL <1800 [facility] Comment on above: Heart Failure Unlike ly: < 300 pg/mLHeart Failure Likely< 50 Years: > 450 pg/mL50-75 Years: > 900 pg/mL>75 Years: > 1800 pg/mL Neutrophil percentageOrdered By: Marycarmen Rodriguez on 11-09-2024 Neutrophils/100 WBC (Bld) 66.5 % 47-70 [facility] Nucleated red blood cell per centageOrdered By: Marycarmen Rodriguez on 11-09-2024 Nucleated RBC/100 WBC (Bld) [Ratio] 0 % 0-5 [facility] Platelet countOrdered By: Ap Rodriguez on 11-09-2024 Platelets (Bld) [#/Vol] 120 10*3/uL Low 150-450 [facility] Potassium measurement (mass/ volume)Ordered By: Marycarmen Rodriguez on 11-09-2024 Potassium (Unsp spec) [Mass/Vol] 4.6 mmol/L 3.3-5.1 [facility] RBC Auto (Bld) [#/Vol]Ordere d By: Marycarmen Rodriguez on 11-09-2024 RBC (Bld) [#/Vol] 4.12 10*6/uL Low 4.6-6.[address] [facility] Serum creatinine measurement (mass/volume)Ordered By: Marycarmen Rodriguez on 11-09-2024 Creatinine [Mass/Vol] 2.49 mg/dL High 0.70-1.20 [facility] Serum glucose measurement (m ass/volume)Ordered By: Marycarmen Rodriguez on 11-09-2024 Glucose [Mass/Vol] 169 mg/dL High 70-99 [facility] Serum or plasma calcium francine urement (mass/volume)Ordered By: Marycarmen Rodriguez on 11-09-2024 Calcium [Mass/Vol] 9.3 mg/dL 7.6-11.0 [facility] Serum or plasma urea nitroge n measurement (mass/volume)Ordered By: Marycarmen Rodriguez on 11-09-2024 Urea nitrogen [Mass/Vol] 49 mg/dL High 4-19 [facility] Sodium levelOrdered By: Marycarmen Rodriguez on 11-09-2024 Sodium [Moles/Vol] 139 mmol/L 133-145 [facility] White blood cell (WBC) count Ordered By: Marycarmen Rodriguez on 11-09-2024 WBC (Bld) [#/Vol] 6.2 10*3/uL 4.4-11.0 [facility] Pulmonary Visit Reporton Pulmonary Visit Report Normal [facility] Cardiology Visit Reporton Cardiology Visit Report Normal [facility] L3410.9992on 10-23-2024 [facility] Misc. COMMENT Normal . [facility] Comment on above: Order Comment: [id number] 0MED TOX Result Comment: Test Ordered: [id number] N04-Mtihzx+YZ5Mxsvavngnrct Screen, Urine Negative ng/mL UI Reference Range: Qgssow=560Yiypktitilt test includes Amphetamine and Methamphetamine.Barbiturates Negative ng/mL UI Reference Range: Kqsnrd=402Nemcuwnrwehkock Negative ng/mL UI Reference Range: Jgtkab=965Baxibxc (Metab.), Urine Negative ng/mL UI Reference Range: Mnfnab=972Euniqbz Note: ng/mL UI See Final Results Reference Range: Ythgla=959Jizprp test includes Codeine, Morphine, Hydromorphone, Hydrocodone.Opiates Positive [A ] UI Reference Range: Eqvejk=670Djawrl test includes Codeine, Morphine, Hydromorphone, Hydrocodone.Codeine Negative UI Reference Range: Nuyqwa=165Sdlaklcf Negative UI Reference Range: Ccasmt=194Lmrelkeuneqao Negative UI Reference Range: Fzgolq=797Gscbyukaqea Positive [A ] UI Reference Range: .Hydrocodone Conf, MS, UR 349 ng/mL UI Reference Range: Ahuahd=3177-Lvzwwzbesokwug, Urine Negative ng/mL UI Reference Range: Cutoff=10Oxycodone/Oxymorphone, Urine Negative ng/mL UI Reference Range: Xihafu=416Pzab includes Oxycodone and OxymorphonePCP, Urine Negative ng/mL UI Reference Range: Cutoff=25Methadone Screen, Urine Negative ng/mL UI Reference Range: Ehctjf=213Jycbsyifbzaz, Urine Negative ng/mL UI Reference Range: Xkzbzm=799Lygahmqo, Urine Negative ng/mL UI Reference Range: Cutoff=2.0Test includes Fentanyl and NorfentanylThis test was developed and its performance characteristicsdetermined by [facility]. It has not been cleared orapproved by the Food and Drug Administration.Tramadol Negative ng/mL UI Reference Range: Vkdnhn=597Ueowmeabvtajw, Urine Negative ng/mL UI Reference Range: Cutoff=10Creatinine, Urine 36.9 mg/dL UI Reference Range: 20.0-300.0pH, Urine 6.1 UI Reference Range: 4.5-8.9Performed at: - [facility] [id number] [place], [place] [id number] Director: Erik Wallis PhD, Phone: [phone] at: [facility] [address] [id number] Director: Bharath Hawthorne PhD, Phone: [phone] Performed By: #### L 3410.9992, L505.5000 ####[facility] [address] [place], [address] Absolute lymphocyte countOrd ered By: Gustabo Pérez on 10-18-2024 Lymphocytes Auto (Unsp spec) [#/Vol] 1.15 10*3/uL 0.83-4.51 [facility] Absolute neutrophil countOrd ered By: Gustabo Pérez on 10-18-2024 Neutrophils (Bld) [#/Vol] 4.6 10*3/uL 2.0-7.7 [facility] Amphetamine detection with 1 000 ng/mL as cutoffOrdered By: Brooks Carpenter on 10-18-2024 Amphetamines Screen method >1000 ng/mL Ql (U) Negative < 200 ng/mL [facility] Anion gap in Serum or Plasma Ordered By: Gustabo Pérez on 10-18-2024 Anion gap [Moles/Vol] 12 mmol/L 5-15 [facility] Automated lymphocyte count a s percentage of total leukocytesOrdered By: Gustabo Pérez on 10-18-2024 Lymphocytes/100 WBC Auto (Unsp spec) 17.4 % Low 19-41 [facility] BUN/creatinine ratioOrdered By: Gustabo Pérez on 10-18-2024 Urea nitrogen/Creatinine [Mass ratio] 16.4 mg/mg 10- [facility] Basic Metabolic Profile (BMP )on 10-18-2024 BUN/CRE 16.4 RATIO Normal - [facility] Comment on above: Performed By: #### L 500.2500, L100.0100, L503.7505 ####[facility] [address] [place], [address] Calcium [Mass/Vol] 9.0 mg/dL Normal 7.6-11.0 [facility] Comment on above: Performed By: #### L 500.2500, L100.0100, L503.7505 ####[facility] [address] [place], [address] Chloride [Moles/Vol] 103 mmol/L Normal 98-108 [facility] Comment on above: Performed By: #### L 500.2500, L100.0100, L503.7505 ####[facility] [address] [place], [address] CO2 [Moles/Vol] 23.9 mmol/L Normal 21.0-32.0 [facility] Comment on above: Performed By: #### L 500.2500, L100.0100, L503.7505 ####[facility] [address] [place], [address] Creatinine [Mass/Vol] 2.00 mg/dL High 0.70-1.20 [facility] Comment on above: Performed By: #### L 500.2500, L100.0100, L503.7505 ####[facility] [address] [place], [address] GAP 12 Normal 5-15 [facility] Comment on above: Performed By: #### L 500.2500, L100.0100, L503.7505 ####[facility] [address] [place], [address] GFR/1.73 sq M.predicted among non-blacks MDRD (S/P/Bld) [Vol rate/Area] 33 mL/min/{1.73_m2} Low >60 [facility] Comment on above: Result Comment: mL/m in/1.73m2 CKD-EPI Creatinine Equation (2020) Performed By: #### L 500.2500, L100.0100, L503.7505 ####[facility] [address] [place], [address] Glucose [Mass/Vol] 125 mg/dL High 70-99 [facility] Comment on above: Performed By: #### L 500.2500, L100.0100, L503.7505 ####[facility] [address] [place], [address] Potassium [Moles/Vol] 4.8 mmol/L Normal 3.3-5.1 [facility] Comment on above: Performed By: #### L 500.2500, L100.0100, L503.7505 ####[facility] [address] [place], [address] Sodium [Moles/Vol] 139 mmol/L Normal 133-145 [facility] Comment on above: Performed By: #### L 500.2500, L100.0100, L503.7505 ####[facility] [address] [place], [address] Urea nitrogen [Mass/Vol] 33 mg/dL High 4-19 [facility] Comment on above: Performed By: #### L 500.2500, L100.0100, L503.7505 ####[facility] [address] [place], [address] Basophil percentageOrdered B y: Gustabo Pérez on 10-18-2024 Basophils/100 WBC (Bld) 0.2 % 0-1 [facility] CBC W/Diff, Automatedon 10-01 Absolute Lymph 1.15 X10 3/uL Normal 0.83-4.51 [facility] Comment on above: Performed By: #### L 500.2500, L100.0100, L503.7505 ####[facility] [address] [place], [address] Absolute Neut 4.6 X10 3/uL Normal 2.0-7.7 [facility] Comment on above: Performed By: #### L 500.2500, L100.0100, L503.7505 ####[facility] [address] [place], [address] Basophils/100 WBC (Bld) 0.2 % Normal 0-1 [facility] Comment on above: Performed By: #### L 500.2500, L100.0100, L503.7505 ####[facility] [address] [place], [address] Eosinophils/100 WBC (Bld) 2.0 % Normal 0-5 [facility] Comment on above: Performed By: #### L 500.2500, L100.0100, L503.7505 ####[facility] [address] [place], [address] Erythrocyte distribution width (RBC) [Ratio] 14.3 % Normal 11.6-14.6 [facility] Comment on above: Performed By: #### L 500.2500, L100.0100, L503.7505 ####[facility] [address] [place], [address] Hematocrit (Bld) [Volume fraction] 36.4 % Low 40-54 [facility] Comment on above: Performed By: #### L 500.2500, L100.0100, L503.7505 ####[facility] [address] [place], [address] Hemoglobin (Bld) [Mass/Vol] 11.5 g/dL Low 13.0-16.5 [facility] Comment on above: Performed By: #### L 500.2500, L100.0100, L503.7505 ####[facility] [address] [place], [address] IG% 0.600 Normal 0.0-0.9 [facility] Comment on above: Result Comment: IG% - Immature Granulocytes (promyelocytes, myelocytes andmetamyelocytes) > 1% indicates that a LEFT SHIFT is Present. Performed By: #### L 500.2500, L100.0100, L503.7505 ####[facility] [address] [place], [address] Lymphocytes/100 WBC (Bld) 17.4 % Low 19-41 [facility] Comment on above: Performed By: #### L 500.2500, L100.0100, L503.7505 ####[facility] [address] [place], [address] MCH (RBC) [Entitic mass] 29.4 pg Normal 27.0-32.0 [facility] Comment on above: Performed By: #### L 500.2500, L100.0100, L503.7505 ####[facility] [address] [place], [address] MCHC (RBC) [Mass/Vol] 31.6 g/dL Low 32-36 [facility] Comment on above: Performed By: #### L 500.2500, L100.0100, L503.7505 ####[facility] [address] [place], [address] MCV (RBC) [Entitic vol] 93.1 fL Normal 80-94 [facility] Comment on above: Performed By: #### L 500.2500, L100.0100, L503.7505 ####[facility] [address] [place], [address] Monocytes/100 WBC (Bld) 10.4 % High 0-10 [facility] Comment on above: Performed By: #### L 500.2500, L100.0100, L503.7505 ####[facility] [address] [place], [address] Neutrophils/100 WBC (Bld) 69.4 % Normal 47-70 [facility] Comment on above: Performed By: #### L 500.2500, L100.0100, L503.7505 ####[facility] [address] [place], [address] Nucleated RBC (Bld) [#/Vol] 0 10*3/uL Normal 0-5 [facility] [facility] Comment on above: Performed By: #### L 500.2500, L100.0100, L503.7505 ####[facility] [address] [place], [address] Platelet mean volume (Bld) [Entitic vol] 12.9 fL High 6.2-12.0 [facility] Comment on above: Performed By: #### L 500.2500, L100.0100, L503.7505 ####[facility] [address] [place], [address] Platelets (Bld) [#/Vol] 152 10*3/uL Normal 150-450 [facility] Comment on above: Performed By: #### L 500.2500, L100.0100, L503.7505 ####[facility] [address] [place], [address] RBC (Bld) [#/Vol] 3.91 10*6/uL Low 4.6-6.[address] [facility] Comment on above: Performed By: #### L 500.2500, L100.0100, L503.7505 ####[facility] [address] [place], [address] RDW SD 48.5 fl High 35.1-43.9 [facility] Comment on above: Performed By: #### L 500.2500, L100.0100, L503.7505 ####[facility] [address] [place], [address] WBC (Bld) [#/Vol] 6.6 10*3/uL Normal 4.4-11.0 [facility] Comment on above: Performed By: #### L 500.2500, L100.0100, L503.7505 ####[facility] [address] [place], [address] Carbon dioxide, total [Moles /volume] in Central venous bloodOrdered By: Gustabo Pérez on 10-18-2024 CO2 [Moles/Vol] 23.9 mmol/L 21.0-32.0 [facility] Chloride assayOrdered By: Lydia Pérez on 10-18-2024 Chloride [Moles/Vol] 103 mmol/L 98-108 [facility] Eosinophil percentageOrdered By: Gustabo Pérez on 10-18-2024 Eosinophils/100 WBC (Bld) 2.0 % 0-5 [facility] Erythrocyte distribution wid th ratioOrdered By: Gustabo Pérez on 10-18-2024 Erythrocyte distribution width (RBC) [Ratio] 14.3 % 11.6-14.6 [facility] Erythrocyte distribution wid th standard deviationOrdered By: Gustabo Pérez on 10-18-2024 Erythrocyte distribution width (RBC) [Ratio] 48.5 fl High 35.1-43.9 [facility] Glomerular filtration rate ( GFR) estimation/1.73 sq m using serum, plasma, or whole bOrdered By: Gustabo Pérez on 10-18-2024 GFR/1.73 sq M.predicted among non-blacks MDRD (S/P/Bld) [Vol rate/Area] 33 mL/min/{1.73_m2} Low >60 [facility] Comment on above: mL/min/1.73m2 CKD-EP I Creatinine Equation (2020) Hematocrit Auto (Bld) [Volum e fraction]Ordered By: Gustabo Pérez on 10-18-2024 Hematocrit (Bld) [Volume fraction] 36.4 % Low 40-54 [facility] Hemoglobin measurementOrdere d By: Gustabo Pérez on 10-18-2024 Hemoglobin (Bld) [Mass/Vol] 11.5 g/dL Low 13.0-16.5 [facility] Immature granulocytes/100 WB C Auto (Bld)Ordered By: Gustabo Pérez on 10-18-2024 Immature granulocytes/100 WBC (Bld) 0.600 % 0.0-0.9 [facility] Comment on above: IG% - Immature Granu locytes (promyelocytes, myelocytes and metamyelocytes) > 1% indicates that a LEFT SHIFT is Present. L503.7505on 10-18-2024 Natriuretic peptide B (Bld) [Mass/Vol] 200 pg/mL Normal <=1800 [facility] Comment on above: Result Comment: Hear t Failure Unlikely: < 300 pg/mLHeart Failure Likely< 50 Years: > 450 pg/mL50-75 Years: > 900 pg/mL>75 Years: > 1800 pg/mL Performed By: #### L 500.2500, L100.0100, L503.7505 ####[facility] [address] [place], [address] MCV (mean corpuscular volume ) determinationOrdered By: Gustabo Pérez on 10-18-2024 MCV (RBC) [Entitic vol] 93.1 fL 80-94 [facility] Mean corpuscular hemoglobin (MCH) determinationOrdered By: Gustabo Pérez on 10-18-2024 MCH (RBC) [Entitic mass] 29.4 pg 27.0-32.0 [facility] Mean corpuscular hemoglobin concentration (MCHC) determinationOrdered By: Gustabo Pérez on 10-18-2024 MCHC (RBC) [Mass/Vol] 31.6 g/dL Low 32-36 [facility] Mean platelet volume determi nationOrdered By: Gustabo Pérez on 10-18-2024 Platelet mean volume (Bld) [Entitic vol] 12.9 fL High 6.2-12.0 [facility] Monocyte percentageOrdered B y: Gustabo Pérez on 10-18-2024 Monocytes/100 WBC (Bld) 10.4 % High 0-10 [facility] Natriuretic peptide.B prohor efrem N-Terminal [Mass/volume] in Serum or PlasmaOrdered By: Gustabo Pérez on 10-18-2024 Natriuretic peptide.B prohormone N-Terminal [Mass/Vol] 200 pg/mL <1800 [facility] Comment on above: Heart Failure Unlike ly: < 300 pg/mLHeart Failure Likely< 50 Years: > 450 pg/mL50-75 Years: > 900 pg/mL>75 Years: > 1800 pg/mL Neutrophil percentageOrdered By: Gustabo Pérez on 10-18-2024 Neutrophils/100 WBC (Bld) 69.4 % 47-70 [facility] No Panel InformationOrdered By: Brooks Carpenter on 10-18-2024 Urine Buprenorphine Qualitative Negative < 200 ng/mL [facility] Urine Oxycodone Screen Negative < 100 ng/mL [facility] Negative < 200 ng/mL [facility] Nucleated red blood cell per centageOrdered By: Gustabo Pérez on 10-18-2024 Nucleated RBC/100 WBC (Bld) [Ratio] 0 % 0-5 [facility] Platelet countOrdered By: Lydia Pérez on 10-18-2024 Platelets (Bld) [#/Vol] 152 10*3/uL 150-450 [facility] Potassium measurement (mass/ volume)Ordered By: Gustabo Pérez on 10-18-2024 Potassium (Unsp spec) [Mass/Vol] 4.8 mmol/L 3.3-5.1 [facility] Quantitative urine opiates m easurementOrdered By: Brooks Carpenter on 10-18-2024 Opiates Ql (U) Positive < 300 ng/mL [facility] Comment on above: If confirmation test ing is needed, a separate order will be required to send out testing to the reference laboratory. RBC Auto (Bld) [#/Vol]Ordere d By: Gustabo Pérez on 10-18-2024 RBC (Bld) [#/Vol] 3.91 10*6/uL Low 4.6-6.[address] [facility] Screening urine fentanyl ritu surementOrdered By: Brooks Carpenter on 10-18-2024 fentaNYL Screen Ql (U) Negative [facility] Serum creatinine measurement (mass/volume)Ordered By: Gustabo Pérez on 10-18-2024 Creatinine [Mass/Vol] 2.00 mg/dL High 0.70-1.20 [facility] Serum glucose measurement (m ass/volume)Ordered By: Gustabo Pérez on 10-18-2024 Glucose [Mass/Vol] 125 mg/dL High 70-99 [facility] Serum or plasma calcium francine urement (mass/volume)Ordered By: Gustabo Pérez on 10-18-2024 Calcium [Mass/Vol] 9.0 mg/dL 7.6-11.0 [facility] Serum or plasma urea nitroge n measurement (mass/volume)Ordered By: Gustabo Pérez on 10-18-2024 Urea nitrogen [Mass/Vol] 33 mg/dL High 4-19 [facility] Sodium levelOrdered By: Gustabo Pérez on 10-18-2024 Sodium [Moles/Vol] 139 mmol/L 133-145 [facility] Urine Drug Screen (VISTA)on 10-18-2024 AMPHETAMINES Negative Normal <1000 ng/mL [facility] Comment on above: Order Comment: PAIN MANAGMENT Performed By: #### L 3410.9992, L505.5000 ####[facility] [address] [place], [address] BARBITIURATES Negative Normal < 200 ng/mL [facility] Comment on above: Order Comment: PAIN MANAGMENT Performed By: #### L 3410.9992, L505.5000 ####[facility] [address] [place], [address] BENZODIAZIPINE Negative Normal < 200 ng/mL [facility] Comment on above: Order Comment: PAIN MANAGMENT Performed By: #### L 3410.9992, L505.5000 ####[facility] [address] [place], [address] BUP Ur Drug Scr Negative Normal < 200 ng/mL [facility] Comment on above: Order Comment: PAIN MANAGMENT Performed By: #### L 3410.9992, L505.5000 ####[facility] [address] [place], [address] COCAINE Negative Normal < 300 ng/mL [facility] Comment on above: Order Comment: PAIN MANAGMENT Performed By: #### L 3410.9992, L505.5000 ####[facility] [address] [place], [address] Fentanyl Negative Normal [facility] Comment on above: Order Comment: PAIN MANAGMENT Performed By: #### L 3410.9992, L505.5000 ####[facility] [address] [place], [address] METHADONE Negative Normal < 300 ng/mL [facility] Comment on above: Order Comment: PAIN MANAGMENT Performed By: #### L 3410.9992, L505.5000 ####[facility] [address] [place], [address] OPIATES Positive Normal < 300 ng/mL [facility] Comment on above: Order Comment: PAIN MANAGMENT Result Comment: If c onfirmation testing is needed, a separate order will berequired to send out testing to the reference laboratory. Performed By: #### L 3410.9992, L505.5000 ####[facility] [address] [place], [address] OXYCODONE Negative Normal < 100 ng/mL [facility] Comment on above: Order Comment: PAIN MANAGMENT Performed By: #### L 3410.9992, L505.5000 ####[facility] [address] [place], [address] PCP Negative Normal < 25 ng/mL [facility] Comment on above: Order Comment: PAIN MANAGMENT Performed By: #### L 3410.9992, L505.5000 ####[facility] [address] [place], [address] THC Negative Normal < 50 ng/mL [facility] Comment on above: Order Comment: PAIN MANAGMENT Performed By: #### L 3410.9992, L505.5000 ####[facility] [address] [place], [address] Urine benzodiazepine levelOr dered By: Brooks Carpenter on 10-18-2024 Benzodiazepines Ql (U) Negative < 200 ng/mL [facility] Urine cocaine levelOrdered B y: Brooks Carpenter on 10-18-2024 Cocaine Ql (U) Negative < 300 ng/mL [facility] Urine hopmy-0-hjtsdrhjvolldx abinol (THC) measurementOrdered By: Brooks Carpenter on 10-18-2024 Cannabinoids Screen Ql (U) Negative < 50 ng/mL [facility] Urine phencyclidine (PCP) de tectionOrdered By: Brooks Carpenter on 10-18-2024 Phencyclidine Ql (U) Negative < 25 ng/mL [facility] White blood cell (WBC) count Ordered By: Gustabo Pérez on 10-18-2024 WBC (Bld) [#/Vol] 6.6 10*3/uL 4.4-11.0 [facility] Absolute lymphocyte countOrd ered By: Marycarmen Rodriguez on 09-29-2024 Lymphocytes Auto (Unsp spec) [#/Vol] 1.35 10*3/uL 0.83-4.51 [facility] Absolute neutrophil countOrd ered By: Marycarmen Rodriguez on 09-29-2024 Neutrophils (Bld) [#/Vol] 9.2 10*3/uL High 2.0-7.7 [facility] Automated lymphocyte count a s percentage of total leukocytesOrdered By: Marycarmen Rodriguez on 09-29-2024 Lymphocytes/100 WBC Auto (Unsp spec) 10.9 % Low 19-41 [facility] Basophil percentageOrdered B y: Marycarmen Rodriguez on 09-29-2024 Basophils/100 WBC (Bld) 0.6 % 0-1 [facility] CBC W/Diff, Automatedon 09-02 Absolute Lymph 1.35 X10 3/uL Normal 0.83-4.51 [facility] Comment on above: Performed By: #### L 503.0106, L100.0100, L503.6550, L503.6150 ####[facility] [address] [place], [address] Absolute Neut 9.2 X10 3/uL High 2.0-7.7 [facility] Comment on above: Performed By: #### L 503.0106, L100.0100, L503.6550, L503.6150 ####[facility] [address] [place], [address] Basophils/100 WBC (Bld) 0.6 % Normal 0-1 [facility] Comment on above: Performed By: #### L 503.0106, L100.0100, L503.6550, L503.6150 ####[facility] [address] [place], [address] Eosinophils/100 WBC (Bld) 0.7 % Normal 0-5 [facility] Comment on above: Performed By: #### L 503.0106, L100.0100, L503.6550, L503.6150 ####[facility] [address] [place], [address] Erythrocyte distribution width (RBC) [Ratio] 14.2 % Normal 11.6-14.6 [facility] Comment on above: Performed By: #### L 503.0106, L100.0100, L503.6550, L503.6150 ####[facility] [address] [place], [address] Hematocrit (Bld) [Volume fraction] 37.4 % Low 40-54 [facility] Comment on above: Performed By: #### L 503.0106, L100.0100, L503.6550, L503.6150 ####[facility] [address] [place], [address] Hemoglobin (Bld) [Mass/Vol] 12.1 g/dL Low 13.0-16.5 [facility] Comment on above: Performed By: #### L 503.0106, L100.0100, L503.6550, L503.6150 ####[facility] [address] [place], [address] IG% 3.600 High 0.0-0.9 [facility] Comment on above: Result Comment: IG% - Immature Granulocytes (promyelocytes, myelocytes andmetamyelocytes) > 1% indicates that a LEFT SHIFT is Present. Performed By: #### L 503.0106, L100.0100, L503.6550, L503.6150 ####[facility] [address] [place], [address] Lymphocytes/100 WBC (Bld) 10.9 % Low 19-41 [facility] Comment on above: Performed By: #### L 503.0106, L100.0100, L503.6550, L503.6150 ####[facility] [address] [place], [address] MCH (RBC) [Entitic mass] 29.6 pg Normal 27.0-32.0 [facility] Comment on above: Performed By: #### L 503.0106, L100.0100, L503.6550, L503.6150 ####[facility] [address] [place], [address] MCHC (RBC) [Mass/Vol] 32.4 g/dL Normal 32-36 [facility] Comment on above: Performed By: #### L 503.0106, L100.0100, L503.6550, L503.6150 ####[facility] [address] [place], [address] MCV (RBC) [Entitic vol] 91.4 fL Normal 80-94 [facility] Comment on above: Performed By: #### L 503.0106, L100.0100, L503.6550, L503.6150 ####[facility] [address] [place], [address] Monocytes/100 WBC (Bld) 9.9 % Normal 0-10 [facility] Comment on above: Performed By: #### L 503.0106, L100.0100, L503.6550, L503.6150 ####[facility] [address] [place], [address] Neutrophils/100 WBC (Bld) 74.3 % High 47-70 [facility] Comment on above: Performed By: #### L 503.0106, L100.0100, L503.6550, L503.6150 ####[facility] [address] [place], [address] Nucleated RBC (Bld) [#/Vol] 0 10*3/uL Normal 0-5 [facility] Comment on above: Performed By: #### L 503.0106, L100.0100, L503.6550, L503.6150 ####[facility] [address] [place], [address] Platelet mean volume (Bld) [Entitic vol] 12.3 fL High 6.2-12.0 [facility] Comment on above: Performed By: #### L 503.0106, L100.0100, L503.6550, L503.6150 ####[facility] [address] [place], [address] Platelets (Bld) [#/Vol] 169 10*3/uL Normal 150-450 [facility] Comment on above: Performed By: #### L 503.0106, L100.0100, L503.6550, L503.6150 ####[facility] [address] [place], [address] RBC (Bld) [#/Vol] 4.09 10*6/uL Low 4.6-6.[address] [facility] Comment on above: Performed By: #### L 503.0106, L100.0100, L503.6550, L503.6150 ####[facility] [address] [place], [address] RDW SD 47.4 fl High 35.1-43.9 [facility] Comment on above: Performed By: #### L 503.0106, L100.0100, L503.6550, L503.6150 ####[facility] [address] [place], [address] WBC (Bld) [#/Vol] 12.4 10*3/uL High 4.4-11.[address] [facility] Comment on above: Performed By: #### L 503.0106, L100.0100, L503.6550, L503.6150 ####[facility] [address] [place], [address] Eosinophil percentageOrdered By: Marycarmen Rodriguez on 09-29-2024 Eosinophils/100 WBC (Bld) 0.7 % 0-5 [facility] Erythrocyte distribution wid th ratioOrdered By: Marycarmen Rodriguez on 09-29-2024 Erythrocyte distribution width (RBC) [Ratio] 14.2 % 11.6-14.6 [facility] Erythrocyte distribution wid th standard deviationOrdered By: Marycarmen Rodriguez on 09-29-2024 Erythrocyte distribution width (RBC) [Ratio] 47.4 fl High 35.1-43.9 [facility] Ferritinon 09-29-2024 Ferritin [Mass/Vol] 454 ng/mL High 37-[address] [facility] Comment on above: Performed By: #### L 503.0106, L100.0100, L503.6550, L503.6150 ####[facility] [address] [place], [place], [address] Hematocrit Auto (Bld) [Volum e fraction]Ordered By: Marycarmen Rodriguez on 09-29-2024 Hematocrit (Bld) [Volume fraction] 37.4 % Low 40-54 [facility] Hemoglobin measurementOrdere d By: Marycarmen Rodriguez on 09-29-2024 Hemoglobin (Bld) [Mass/Vol] 12.1 g/dL Low 13.0-16.5 [facility] Immature granulocytes/100 WB C Auto (Bld)Ordered By: Marycarmen Rodriguez on 09-29-2024 Immature granulocytes/100 WBC (Bld) 3.600 % High 0.0-0.9 [facility] Comment on above: IG% - Immature Granu locytes (promyelocytes, myelocytes and metamyelocytes) > 1% indicates that a LEFT SHIFT is Present. Ironon 09-29-2024 Iron [Mass/Vol] 80 ug/dL Normal 65-175 [facility] Comment on above: Performed By: #### L 503.0106, L100.0100, L503.6550, L503.6150 ####[facility] [address] [place], [address] Iron measurement (mass/mass) Ordered By: Marycarmen Rodriguez on 09-29-2024 Iron (Unsp spec) [Mass/Mass] 80 ug/dL 65-175 [facility] MCV (mean corpuscular volume ) determinationOrdered By: Marycarmen Rodriguez on 09-29-2024 MCV (RBC) [Entitic vol] 91.4 fL 80-94 [facility] Mean corpuscular hemoglobin (MCH) determinationOrdered By: Marycarmen Rodriguez on 09-29-2024 MCH (RBC) [Entitic mass] 29.6 pg 27.0-32.0 [facility] Mean corpuscular hemoglobin concentration (MCHC) determinationOrdered By: Marycarmen Rodriguez on 09-29-2024 MCHC (RBC) [Mass/Vol] 32.4 g/dL 32-36 [facility] Mean platelet volume determi nationOrdered By: Marycarmen Rodriguez on 09-29-2024 Platelet mean volume (Bld) [Entitic vol] 12.3 fL High 6.2-12.0 [facility] Monocyte percentageOrdered B y: Marycarmen Rodriguez on 09-29-2024 Monocytes/100 WBC (Bld) 9.9 % 0-10 [facility] Neutrophil percentageOrdered By: Marycarmen Rodriguez on 09-29-2024 Neutrophils/100 WBC (Bld) 74.3 % High 47-70 [facility] Nucleated red blood cell per centageOrdered By: Marycarmen Rodriguez on 09-29-2024 Nucleated RBC/100 WBC (Bld) [Ratio] 0 % 0-5 [facility] Platelet countOrdered By: Ap Rodriguez on 09-29-2024 Platelets (Bld) [#/Vol] 169 10*3/uL 150-450 [facility] RBC Auto (Bld) [#/Vol]Ordere d By: Marycarmen Rodriguez on 09-29-2024 RBC (Bld) [#/Vol] 4.09 10*6/uL Low 4.6-6.[address] [facility] Serum or plasma ferritin ritu surement (mass/volume)Ordered By: Marycarmen Rodriguez on 09-29-2024 Ferritin [Mass/Vol] 454 ng/mL High 37-[address] [facility] Vitamin B12on 09-29-2024 Cobalamin (Vitamin B12) [Mass/Vol] 766 pg/mL Normal 180-914 [facility] Comment on above: Performed By: #### L 503.0106, L100.0100, L503.6550, L503.6150 ####[facility] [address] [place], [address] Vitamin B12 ser/plasOrdered By: Marycarmen Rodriguez on 09-29-2024 Cobalamin (Vitamin B12) [Mass/Vol] 766 pg/mL 180-914 [facility] White blood cell (WBC) count Ordered By: Marycarmen Rodriguez on 09-29-2024 WBC (Bld) [#/Vol] 12.4 10*3/uL High 4.4-11.[address] [facility] Absolute lymphocyte countOrd ered By: ELIAZAR Olivas on 09-20-2024 Lymphocytes Auto (Unsp spec) [#/Vol] 1.44 10*3/uL 0.83-4.51 [facility] Absolute neutrophil countOrd ered By: ELIAZAR Olivas on 09-20-2024 Neutrophils (Bld) [#/Vol] 6.6 10*3/uL 2.0-7.7 [facility] Automated lymphocyte count a s percentage of total leukocytesOrdered By: ELIAZAR Olivas on 09-20-2024 Lymphocytes/100 WBC Auto (Unsp spec) 15.5 % Low 19-41 [facility] Basophil percentageOrdered B y: ELIAZAR Olivas on 09-20-2024 Basophils/100 WBC (Bld) 0.3 % 0-1 [facility] CBC W/Diff, Automatedon 09-01 Absolute Lymph 1.44 X10 3/uL Normal 0.83-4.51 [facility] Comment on above: Performed By: #### L 100.0100, L503.3235 ####[facility] [address] [facility] [place], [address] Absolute Neut 6.6 X10 3/uL Normal 2.0-7.7 [facility] Comment on above: Performed By: #### L 100.0100, L503.9405 ####[facility] [address] [place], [address] Basophils/100 WBC (Bld) 0.3 % Normal 0-1 [facility] Comment on above: Performed By: #### L 100.0100, L503.7505 ####[facility] [address] [place], [address] Eosinophils/100 WBC (Bld) 1.5 % Normal 0-5 [facility] Comment on above: Performed By: #### L 100.0100, L5.7505 ####[facility] [address] [place], [address] Erythrocyte distribution width (RBC) [Ratio] 14.1 % Normal 11.6-14.6 [facility] Comment on above: Performed By: #### L 100.0100, L5.7505 ####[facility] [address] [place], [address] Hematocrit (Bld) [Volume fraction] 34.8 % Low 40-54 [facility] Comment on above: Performed By: #### L 100.0100, L5.7505 ####[facility] [address] [place], [address] Hemoglobin (Bld) [Mass/Vol] 11.1 g/dL Low 13.0-16.5 [facility] Comment on above: Performed By: #### L 100.0100, L5.7505 ####[facility] [address] [place], [address] IG% 0.800 Normal 0.0-0.9 [facility] Comment on above: Result Comment: IG% - Immature Granulocytes (promyelocytes, myelocytes andmetamyelocytes) > 1% indicates that a LEFT SHIFT is Present. Performed By: #### L 100.0100, L5.7505 ####[facility] [address] [place], [address] Lymphocytes/100 WBC (Bld) 15.5 % Low 19-41 [facility] Comment on above: Performed By: #### L 100.0100, L503.7505 ####[facility] [address] [place], [address] MCH (RBC) [Entitic mass] 29.4 pg Normal 27.0-32.0 [facility] Comment on above: Performed By: #### L 100.0100, L503.7505 ####[facility] [address] [place], [address] MCHC (RBC) [Mass/Vol] 31.9 g/dL Low 32-36 [facility] Comment on above: Performed By: #### L 100.0100, L503.7505 ####[facility] [address] [place], [address] MCV (RBC) [Entitic vol] 92.1 fL Normal 80-94 [facility] Comment on above: Performed By: #### L 100.0100, L503.7505 ####[facility] [address] [place], [address] Monocytes/100 WBC (Bld) 11.1 % High 0-10 [facility] Comment on above: Performed By: #### L 100.0100, L503.7505 ####[facility] [address] [place], [address] Neutrophils/100 WBC (Bld) 70.8 % High 47-70 [facility] Comment on above: Performed By: #### L 100.0100, L503.7505 ####[facility] [address] [place], [address] Nucleated RBC (Bld) [#/Vol] 0 10*3/uL Normal 0-5 [facility] Comment on above: Performed By: #### L 100.0100, L503.7505 ####[facility] [address] [place], [address] Platelet mean volume (Bld) [Entitic vol] 12.6 fL High 6.2-12.0 [facility] Comment on above: Performed By: #### L 100.0100, L503.7505 ####[facility] [address] [place], [address] Platelets (Bld) [#/Vol] 166 10*3/uL Normal 150-450 [facility] Comment on above: Performed By: #### L 100.0100, L503.7505 ####[facility] [address] [place], [address] RBC (Bld) [#/Vol] 3.78 10*6/uL Low 4.6-6.[address] [facility] Comment on above: Performed By: #### L 100.0100, L503.7505 ####[facility] [address] [place], [address] RDW SD 48.0 fl High 35.1-43.9 [facility] Comment on above: Performed By: #### L 100.0100, L503.7505 ####[facility] [address] [place], [address] WBC (Bld) [#/Vol] 9.3 10*3/uL Normal 4.4-11.0 [facility] Comment on above: Performed By: #### L 100.0100, L503.7505 ####[facility] [address] [place], [address] Eosinophil percentageOrdered By: ELIAZAR Olivas on 09-20-2024 Eosinophils/100 WBC (Bld) 1.5 % 0-5 [facility] Erythrocyte distribution wid th ratioOrdered By: ELIAZAR Olivas on 09-20-2024 Erythrocyte distribution width (RBC) [Ratio] 14.1 % 11.6-14.6 [facility] Erythrocyte distribution wid th standard deviationOrdered By: ELIAZAR Olivas on 09-20-2024 Erythrocyte distribution width (RBC) [Ratio] 48.0 fl High 35.1-43.9 [facility] Hematocrit Auto (Bld) [Volum e fraction]Ordered By: ELIAZAR Olivas on 09-20-2024 Hematocrit (Bld) [Volume fraction] 34.8 % Low 40-54 [facility] Hemoglobin measurementOrdere d By: ELIAZAR Olivas on 09-20-2024 Hemoglobin (Bld) [Mass/Vol] 11.1 g/dL Low 13.0-16.5 [facility] Immature granulocytes/100 WB C Auto (Bld)Ordered By: ELAIZAR Olivas on 09-20-2024 Immature granulocytes/100 WBC (Bld) 0.800 % 0.0-0.9 [facility] Comment on above: IG% - Immature Granu locytes (promyelocytes, myelocytes and metamyelocytes) > 1% indicates that a LEFT SHIFT is Present. L503.7505on 09-20-2024 Natriuretic peptide B (Bld) [Mass/Vol] 84 pg/mL Normal <=1800 [facility] Comment on above: Result Comment: Hear t Failure Unlikely: < 300 pg/mLHeart Failure Likely< 50 Years: > 450 pg/mL50-75 Years: > 900 pg/mL>75 Years: > 1800 pg/mL Performed By: #### L 100.0100, L503.7505 ####[facility] [address] [place], [address] MCV (mean corpuscular volume ) determinationOrdered By: ELIAZAR Olivas on 09-20-2024 MCV (RBC) [Entitic vol] 92.1 fL 80-94 [facility] Mean corpuscular hemoglobin (MCH) determinationOrdered By: ELIAZAR Olivas on 09-20-2024 MCH (RBC) [Entitic mass] 29.4 pg 27.0-32.0 [facility] Mean corpuscular hemoglobin concentration (MCHC) determinationOrdered By: ELIAZAR Olivas on 09-20-2024 MCHC (RBC) [Mass/Vol] 31.9 g/dL Low 32-36 [facility] Mean platelet volume determi nationOrdered By: ELIAZAR Olivas on 09-20-2024 Platelet mean volume (Bld) [Entitic vol] 12.6 fL High 6.2-12.0 [facility] Monocyte percentageOrdered B y: ELIAZAR Olivas on 09-20-2024 Monocytes/100 WBC (Bld) 11.1 % High 0-10 [facility] Natriuretic peptide.B prohor efrem N-Terminal [Mass/volume] in Serum or PlasmaOrdered By: ELIAZAR Olivas on 09-20-2024 Natriuretic peptide.B prohormone N-Terminal [Mass/Vol] 84 pg/mL <1800 [facility] Comment on above: Heart Failure Unlike ly: < 300 pg/mLHeart Failure Likely< 50 Years: > 450 pg/mL50-75 Years: > 900 pg/mL>75 Years: > 1800 pg/mL Neutrophil percentageOrdered By: ELIAZAR Olivas on 09-20-2024 Neutrophils/100 WBC (Bld) 70.8 % High 47-70 [facility] Nucleated red blood cell per centageOrdered By: ELIAZAR Olivas on 09-20-2024 Nucleated RBC/100 WBC (Bld) [Ratio] 0 % 0-5 [facility] Platelet countOrdered By: ELIAZAR Olivas on 09-20-2024 Platelets (Bld) [#/Vol] 166 10*3/uL 150-450 [facility] Pulmonary Visit Reporton Pulmonary Visit Report Normal [facility] RBC Auto (Bld) [#/Vol]Ordere d By: ELIAZAR Olivas on 09-20-2024 RBC (Bld) [#/Vol] 3.78 10*6/uL Low 4.6-6.[address] [facility] White blood cell (WBC) count Ordered By: ELIAZAR Olivas on 09-20-2024 WBC (Bld) [#/Vol] 9.3 10*3/uL 4.4-11.0 [facility] 6 Minute Walk Teston 07-18- 025 6 Minute Walk Test Normal [facility] Pulmonary Visit Reporton Pulmonary Visit Report Normal [facility] BUN/creatinine ratioOrdered By: Marycarmen Rodriguez on 06-30-2024 Urea nitrogen/Creatinine [Mass ratio] 17.4 mg/mg 10-20 [facility] Basic Metabolic Profile (BMP )on 06-30-2024 Anion gap [Moles/Vol] 11 mmol/L Normal 5-15 [facility] Comment on above: Performed By: #### L 500.2500 ####[facility] [address] [place], [address] BUN/CRE 17.4 RATIO Normal 10-20 [facility] Comment on above: Performed By: #### L 500.2500 ####[facility] [address] [place], [address] Calcium [Mass/Vol] 9.7 mg/dL Normal 7.6-11.0 [facility] Comment on above: Performed By: #### L 500.2500 ####[facility] [address] [place], [address] Chloride [Moles/Vol] 105 mmol/L Normal 96-108 [facility] Comment on above: Performed By: #### L 500.2500 ####[facility] [address] [place], [address] CO2 [Moles/Vol] 25.3 mmol/L Normal 22.0-29.0 [facility] Comment on above: Performed By: #### L 500.2500 ####[facility] [address] [place], [address] Creatinine [Mass/Vol] 1.80 mg/dL High 0.70-1.20 [facility] Comment on above: Performed By: #### L 500.2500 ####[facility] [address] [place], [address] GFR/1.73 sq M.predicted among non-blacks MDRD (S/P/Bld) [Vol rate/Area] 38 mL/min/{1.73_m2} Low >60 [facility] Comment on above: Result Comment: mL/m in/1.73m2 CKD-EPI Creatinine Equation (2020) Performed By: #### L 500.2500 ####[facility] [address] [place], [address] Glucose [Mass/Vol] 112 mg/dL High 70-99 [facility] Comment on above: Performed By: #### L 500.2500 ####[facility] [address] [place], [address] Potassium [Moles/Vol] 4.8 mmol/L Normal 3.3-5.1 [facility] Comment on above: Performed By: #### L 500.2500 ####[facility] [address] [place], [address] Sodium [Moles/Vol] 141 mmol/L Normal 133-145 [facility] Comment on above: Performed By: #### L 500.2500 ####[facility] [address] [place], [address] Urea nitrogen [Mass/Vol] 31 mg/dL High 4-19 [facility] Comment on above: Performed By: #### L 500.2500 ####[facility] [address] [place], [address] Carbon dioxide measurementOr dered By: Marycarmen Rodriguez on 06-30-2024 CO2 [Moles/Vol] 25.3 mmol/L 22.0-29.0 [facility] Chloride measurementOrdered By: Marycarmen Rodriguez on 06-30-2024 Chloride [Moles/Vol] 105 mmol/L 96-108 [facility] GFR/1.73 sq M.predicted ana lilia g non-blacks MDRD (S/P/Bld) [Vol rate/Area]Ordered By: Marycarmen Rodriguez on 06-30-2024 Estimated GFR (MDRD) Non-Af Amer 38 Low >60 [facility] Comment on above: mL/min/1.73m2 CKD-EP I Creatinine Equation (2020) Glomerular filtration rate ( GFR) estimation/1.73 sq m using serum, plasma, or whole bOrdered By: Marycarmen Rodriguez on 06-30-2024 GFR/1.73 sq M.predicted among non-blacks MDRD (S/P/Bld) [Vol rate/Area] 38 mL/min/{1.73_m2} Low >60 [facility] Comment on above: mL/min/1.73m2 CKD-EP I Creatinine Equation (2020) Serum creatinine measurement (mass/volume)Ordered By: Marycarmen Rodriguez on 06-30-2024 Creatinine [Mass/Vol] 1.80 mg/dL High 0.70-1.20 [facility] Serum glucose measurement (m ass/volume)Ordered By: Marycarmen Rodriguez on 06-30-2024 Glucose [Mass/Vol] 112 mg/dL High 70-99 [facility] Serum or plasma anion gap de termination (moles/volume)Ordered By: Marycarmen Rodriguez on 06-30-2024 Anion gap [Moles/Vol] 11 mmol/L 5-15 [facility] Serum or plasma calcium francine urement (mass/volume)Ordered By: Marycarmen Rodriguez on 06-30-2024 Calcium [Mass/Vol] 9.7 mg/dL 7.6-11.0 [facility] Serum or plasma potassium me asurementOrdered By: Marycarmen Rodriguez on 06-30-2024 Potassium [Moles/Vol] 4.8 mmol/L 3.3-5.1 [facility] Serum or plasma sodium measu rement (moles/volume)Ordered By: Marycarmen Rodriguez on 06-30-2024 Sodium [Moles/Vol] 141 mmol/L 133-145 [facility] Serum or plasma urea nitroge n measurement (mass/volume)Ordered By: Marycarmen Rodriguez on 06-30-2024 Urea nitrogen [Mass/Vol] 31 mg/dL High 4-19 [facility] Absolute neutrophil countOrd ered By: Gustabo Pérez on 04-17-2024 Neutrophils (Bld) [#/Vol] 6.0 10*3/uL 2.0-7.7 [facility] BNP (brain natriuretic pepti de measurement)Ordered By: Gustabo Pérez on 04-17-2024 Natriuretic peptide B (Bld) [Mass/Vol] 37.2 pg/mL 0-100 [facility] BNP,B-Type NATRIURETIC PEPTI Sharon 04-17-2024 Natriuretic peptide B (Bld) [Mass/Vol] 37.2 pg/mL Normal 0-100 [facility] Comment on above: Performed By: #### L 100.0100, L503.6620, L500.2500 ####[facility] [address] [place], [address] Basic Metabolic Profile (BMP )on 04-17-2024 BUN/CRE 11.2 RATIO Normal 10-20 [facility] Comment on above: Performed By: #### L 100.0100, L503.6620, L500.2500 ####[facility] [address] [place], [address] CA,Total 9.0 mg/dL Normal 8.5-10.1 [facility] Comment on above: Performed By: #### L 100.0100, L503.6620, L500.2500 ####[facility] [address] [place], [address] Chloride [Moles/Vol] 107 mmol/L Normal 98-107 [facility] Comment on above: Performed By: #### L 100.0100, L503.6620, L500.2500 ####[facility] [address] [place], [address] CO2 [Moles/Vol] 27.0 mmol/L Normal 21.0-32.0 [facility] Comment on above: Performed By: #### L 100.0100, L503.6620, L500.2500 ####[facility] [address] [place], [address] Creatinine [Mass/Vol] 1.79 mg/dL High 0.70-1.30 [facility] Comment on above: Result Comment: The validity of the calculated GFR GFRAA in patients over70 years has not been determined. Clinical correlation isessential. Performed By: #### L 100.0100, L503.6620, L500.2500 ####[facility] [address] [place], [address] EST GFR - AA 47 mL/min Low >60 [facility] Comment on above: Result Comment: Afri can Guyanese GFR Calc Performed By: #### L 100.0100, L503.6620, L500.2500 ####[facility] [address] [place], [address] GAP 4 Low 5-15 [facility] Comment on above: Performed By: #### L 100.0100, L503.6620, L500.2500 ####[facility] [address] [place], [address] GFR/1.73 sq M.predicted among non-blacks MDRD (S/P/Bld) [Vol rate/Area] 39 mL/min/{1.73_m2} Low >60 [facility] Comment on above: Result Comment: Non- GFR Calc Performed By: #### L 100.0100, L503.6620, L500.2500 ####[facility] [address] [place], [address] Glucose [Mass/Vol] 228 mg/dL High 74-106 [facility] Comment on above: Result Comment: Gluc ose result greater than or equal to 200 mg/dLsuggests DIABETES MELLITUS per A.D.A. criteria. Performed By: #### L 100.0100, L503.6620, L500.2500 ####[facility] [address] [place], [address] Potassium [Moles/Vol] 4.8 mmol/L Normal 3.5-5.1 [facility] Comment on above: Performed By: #### L 100.0100, L503.6620, L500.2500 ####[facility] [address] [place], [address] Sodium [Moles/Vol] 138 mmol/L Normal 136-145 [facility] Comment on above: Performed By: #### L 100.0100, L503.6620, L500.2500 ####[facility] [address] [place], [address] Urea nitrogen [Mass/Vol] 20 mg/dL High 7-18 [facility] Comment on above: Performed By: #### L 100.0100, L503.6620, L500.2500 ####[facility] [address] [place], [address] Basophil percentageOrdered B y: Gustabo Pérez on 04-17-2024 Basophils/100 WBC (Bld) 0.5 % 0-1 [facility] Blood urea nitrogen (BUN)/cr eatinine ratioOrdered By: Gustabo Pérez on 04-17-2024 Urea nitrogen/Creatinine [Mass ratio] 11.2 mg/mg 10-20 [facility] CBC W/Diff, Automatedon 04-02-2023 Absolute Lymph 1.29 X10 3/uL Normal 0.83-4.51 [facility] Comment on above: Performed By: #### L 100.0100, L503.6620, L500.2500 ####[facility] [address] [place], [address] Absolute Neut 6.0 X10 3/uL Normal 2.0-7.7 [facility] Comment on above: Performed By: #### L 100.0100, L503.6620, L500.2500 ####[facility] [address] [place], [address] Basophils/100 WBC (Bld) 0.5 % Normal 0-1 [facility] Comment on above: Performed By: #### L 100.0100, L503.6620, L500.2500 ####[facility] [address] [place], [address] Eosinophils/100 WBC (Bld) 1.2 % Normal 0-5 [facility] Comment on above: Performed By: #### L 100.0100, L503.6620, L500.2500 ####[facility] [address] [place], [address] Erythrocyte distribution width (RBC) [Ratio] 13.9 % Normal 11.6-14.6 [facility] Comment on above: Performed By: #### L 100.0100, L503.6620, L500.2500 ####[facility] [address] [place], [address] Hematocrit (Bld) [Volume fraction] 41.0 % Normal 40-54 [facility] Comment on above: Performed By: #### L 100.0100, L503.6620, L500.2500 ####[facility] [address] [place], [address] Hemoglobin (Bld) [Mass/Vol] 13.2 g/dL Normal 13.0-16.5 [facility] Comment on above: Performed By: #### L 100.0100, L503.6620, L500.2500 ####[facility] [address] [place], [address] IG% 0.600 Normal 0.0-0.9 [facility] Comment on above: Result Comment: IG% - Immature Granulocytes (promyelocytes, myelocytes andmetamyelocytes) > 1% indicates that a LEFT SHIFT is Present. Performed By: #### L 100.0100, L503.6620, L500.2500 ####[facility] [address] [place], [address] Lymphocytes/100 WBC (Bld) 15.7 % Low 19-41 [facility] Comment on above: Performed By: #### L 100.0100, L503.6620, L500.2500 ####[facility] [address] [place], [address] MCH (RBC) [Entitic mass] 29.2 pg Normal 27.0-32.0 [facility] Comment on above: Performed By: #### L 100.0100, L503.6620, L500.2500 ####[facility] [address] [place], [address] MCHC (RBC) [Mass/Vol] 32.2 g/dL Normal 32-36 [facility] Comment on above: Performed By: #### L 100.0100, L503.6620, L500.2500 ####[facility] [address] [place], [address] MCV (RBC) [Entitic vol] 90.7 fL Normal 80-94 [facility] Comment on above: Performed By: #### L 100.0100, L503.6620, L500.2500 ####[facility] [address] [place], [address] Monocytes/100 WBC (Bld) 8.5 % Normal 0-10 [facility] Comment on above: Performed By: #### L 100.0100, L503.6620, L500.2500 ####[facility] [address] [place], [address] Neutrophils/100 WBC (Bld) 73.5 % High 47-70 [facility] - [place] Comment on above: Performed By: #### L 100.0100, L503.6620, L500.2500 ####[facility] [place] [address] [place], [address] Nucleated RBC (Bld) [#/Vol] 0 10*3/uL Normal 0-5 [facility] [place] Comment on above: Performed By: #### L 100.0100, L503.6620, L500.2500 ####[facility] [place] [address] [place], [address] Platelet mean volume (Bld) [Entitic vol] 12.3 fL High 6.2-12.0 [facility] [place] Comment on above: Performed By: #### L 100.0100, L503.6620, L500.2500 ####[facility] [place] [address] [place], [address] Platelets (Bld) [#/Vol] 185 10*3/uL Normal 150-450 [facility] [place] Comment on above: Performed By: #### L 100.0100, L503.6620, L500.2500 ####[facility] [place] [address] [place], [address] RBC (Bld) [#/Vol] 4.52 10*6/uL Low 4.6-6.[address] [facility] Comment on above: Performed By: #### L 100.0100, L503.6620, L500.2500 ####[facility] [place] [address] [place], [address] RDW SD 46.4 fl High 35.1-43.9 [facility] [place] Comment on above: Performed By: #### L 100.0100, L503.6620, L500.2500 ####[facility] [place] [address] [place], [address] WBC (Bld) [#/Vol] 8.2 10*3/uL Normal 4.4-11.0 [facility] Comment on above: Performed By: #### L 100.0100, L503.6620, L500.2500 ####[facility] [place] [address] [place], [address] Carbon dioxide measurementOr dered By: Gustabo Pérez on 04-17-2024 CO2 [Moles/Vol] 27.0 mmol/L 21.0-32.0 [facility] [place] Cardiology Visit Reporton Cardiology Visit Report Normal [facility] Chloride measurementOrdered By: Gustabo Pérez on 04-17-2024 Chloride [Moles/Vol] 107 mmol/L 98-107 [facility] Eosinophil percentageOrdered By: Gustabo Pérez on 04-17-2024 Eosinophils/100 WBC (Bld) 1.2 % 0-5 [facility] [place] Erythrocyte distribution wid th ratioOrdered By: Gustabo Pérez on 04-17-2024 Erythrocyte distribution width (RBC) [Ratio] 13.9 % 11.6-14.6 [facility] [place] Erythrocyte distribution wid th standard deviationOrdered By: Gustabo Pérez on 04-17-2024 Erythrocyte distribution width (RBC) [Entitic vol] 46.4 fL High 35.1-43.9 [facility] [place] Estimated glomerular filtrat ion rate (GFR) AmericanOrdered By: Gustabo Pérez on 04-17-2024 Estimated GFR (MDRD) Amer 47 mL/min Low >60 [facility] [place] Comment on above: GFR Calc Glomerular filtration rate ( GFR) estimationOrdered By: Gustabo Pérez on 04-17-2024 Estimated GFR (MDRD) Non-Af Amer 39 mL/min Low >60 [facility] [place] Comment on above: Non- GFR Calc Glucose measurementOrdered B y: Gustabo Pérez on 04-17-2024 Glucose [Mass/Vol] 228 mg/dL High 74-106 [facility] Comment on above: Glucose result great er than or equal to 200 mg/dLsuggests DIABETES MELLITUS per A.D.A. criteria. Hematocrit Auto (Bld) [Volum e fraction]Ordered By: Gustabo Pérez on 04-17-2024 Hematocrit (Bld) [Volume fraction] 41.0 % 40-54 [facility] Hemoglobin measurementOrdere d By: Gustabo Pérez on 04-17-2024 Hemoglobin (Bld) [Mass/Vol] 13.2 g/dL 13.0-16.5 [facility] [place] Immature granulocytes/100 WB C Auto (Bld)Ordered By: Gustabo Pérez on 04-17-2024 Immature granulocytes/100 WBC (Bld) 0.600 % 0.0-0.9 [facility] [place] Comment on above: IG% - Immature Granu locytes (promyelocytes, myelocytes and metamyelocytes) > 1% indicates that a LEFT SHIFT is Present. Lymphocytes Auto (Unsp spec) [#/Vol]Ordered By: Gustabo Pérez on 04-17-2024 Lymphocytes (Bld) [#/Vol] 1.29 10*3/uL 0.83-4.51 [facility] [place] Lymphocytes/100 WBC Auto (Un sp spec)Ordered By: Gustabo Pérez on 04-17-2024 Lymphocytes/100 WBC (Bld) 15.7 % Low 19-41 [facility] MCV (mean corpuscular volume ) determinationOrdered By: Gustabo Pérez on 04-17-2024 MCV (RBC) [Entitic vol] 90.7 fL 80-94 [facility] [place] Mean corpuscular hemoglobin (MCH) determinationOrdered By: Gustabo Pérez on 04-17-2024 MCH (RBC) [Entitic mass] 29.2 pg 27.0-32.0 [facility] [place] Mean corpuscular hemoglobin concentration (MCHC) determinationOrdered By: uGstabo Pérez on 04-17-2024 MCHC (RBC) [Mass/Vol] 32.2 g/dL 32-36 [facility] Mean platelet volume determi nationOrdered By: Gustabo Pérez on 04-17-2024 Platelet mean volume (Bld) [Entitic vol] 12.3 fL High 6.2-12.0 [facility] Monocyte percentageOrdered B y: Gustabo Pérez on 04-17-2024 Monocytes/100 WBC (Bld) 8.5 % 0-10 [facility] Neutrophil percentageOrdered By: Gustabo Pérez on 04-17-2024 Neutrophils/100 WBC (Bld) 73.5 % High 47-70 [facility] [place] Nucleated red blood cell per centageOrdered By: Gustabo Pérez on 04-17-2024 Nucleated RBC/100 WBC (Bld) [Ratio] 0 % 0-5 [facility] [place] Platelet countOrdered By: Lydia Pérez on 04-17-2024 Platelets (Bld) [#/Vol] 185 10*3/uL 150-450 [facility] [place] Potassium measurementOrdered By: Gustabo Pérez on 04-17-2024 Potassium [Moles/Vol] 4.8 mmol/L 3.5-5.1 [facility] RBC Auto (Bld) [#/Vol]Ordere d By: Gustabo Pérez on 04-17-2024 RBC (Bld) [#/Vol] 4.52 10*6/uL Low 4.6-6.[address] [facility] Serum anion gap measurementO rdered By: Gustabo Pérez on 04-17-2024 Anion gap [Moles/Vol] 4 mmol/L Low 5-15 [facility] Serum or plasma calcium francine urement (mass/volume)Ordered By: Gustabo Pérez on 04-17-2024 Calcium [Mass/Vol] 9.0 mg/dL 8.5-10.1 [facility] Serum or plasma creatinine m easurement (mass/volume)Ordered By: Gustabo Pérez on 04-17-2024 Creatinine [Mass/Vol] 1.79 mg/dL High 0.70-1.30 [facility] Comment on above: The validity of the calculated GFR & GFRAA in patients over 70 years has not been determined. Clinical correlation is essential. Serum or plasma urea nitroge n measurement (mass/volume)Ordered By: Gustabo Pérez on 04-17-2024 Urea nitrogen [Mass/Vol] 20 mg/dL High 7-18 [facility] Sodium levelOrdered By: Gustabo Pérez on 04-17-2024 Sodium [Moles/Vol] 138 mmol/L 136-145 [facility] White blood cell (WBC) count Ordered By: Gustabo Pérez on 04-17-2024 WBC (Bld) [#/Vol] 8.2 10*3/uL 4.4-11.0 [facility] Office Visit Reporton 2023 Office Visit Report Normal [facility] Albumin to globulin ratioOrd ered By: Jose Hay on 03-23-2024 Albumin/Globulin [Mass ratio] 1.1 {ratio} 0.9-2.4 [facility] Bilirubin, totalOrdered By: Jose Hay on 03-23-2024 Bilirubin [Mass/Vol] 2.00 mg/dL High 0.20-1.00 [facility] Comment on above: For patients on eltr ombopag therapy, use of Dimension [place] TBIL is not recommended. Blood urea nitrogen (BUN)/cr eatinine ratioOrdered By: Jose Hay on 03-23-2024 Urea nitrogen/Creatinine [Mass ratio] 18.0 mg/mg 10-20 [facility] [place] Carbon dioxide measurementOr dered By: Jose Hay on 03-23-2024 CO2 [Moles/Vol] 28.0 mmol/L 21.0-32.0 [facility] [place] Chloride measurementOrdered By: Jose Hay on 03-23-2024 Chloride [Moles/Vol] 104 mmol/L 98-107 [facility] Comprehensive Metabolic Prof ilon 03-23-2024 Albumin [Mass/Vol] 3.7 g/dL Normal 3.2-5.0 [facility] Comment on above: Order Comment: DR REMY ORDERED BMP AND MAGNESIUM.DR HAY ORDERED LIPID CMP TSH. RANGLE Performed By: #### L 501.9520, L501.5200, L500.4050, L500.4100 ####[facility] [place] [address] [place], [address] Albumin/Globulin [Mass ratio] 1.1 {ratio} Normal 0.9-2.4 [facility] [place] Comment on above: Order Comment: DR REMY ORDERED BMP AND MAGNESIUM.DR HAY ORDERED LIPID CMP TSH. RANGLE Performed By: #### L 501.9520, L501.5200, L500.4050, L500.4100 ####[facility] [place] [address] [place], [address] ALK P 92 U/L Normal 45-117 [facility] [place] Comment on above: Order Comment: DR REMY ORDERED BMP AND MAGNESIUM.DR HAY ORDERED LIPID CMP TSH. RANGLE Performed By: #### L 501.9520, L501.5200, L500.4050, L500.4100 ####[facility] [place] [address] [place], [address] ALT [Catalytic activity/Vol] 52 U/L Normal 16-61 [facility] [place] Comment on above: Order Comment: DR REMY ORDERED BMP AND MAGNESIUM.DR HAY ORDERED LIPID CMP TSH. RANGLE Performed By: #### L 501.9520, L501.5200, L500.4050, L500.4100 ####[facility] [place] [address] [place], [address] AST [Catalytic activity/Vol] 28 U/L Normal 15-37 [facility] [place] Comment on above: Order Comment: DR REMY ORDERED BMP AND MAGNESIUM.DR HAY ORDERED LIPID CMP TSH. RANGLE Performed By: #### L 501.9520, L501.5200, L500.4050, L500.4100 ####[facility] [place] [address] [place], [address] Bilirubin [Mass/Vol] 2.00 mg/dL High 0.20-1.00 [facility] Comment on above: Order Comment: DR REMY ORDERED BMP AND MAGNESIUM.DR HAY ORDERED LIPID CMP TSH. RANGLE Result Comment: For patients on eltrombopag therapy, use of [place] TBIL is not recommended. Performed By: #### L 501.9520, L501.5200, L500.4050, L500.4100 ####[facility] [address] [place], [address] BUN/CRE 18.0 RATIO Normal 10-20 [facility] [place] Comment on above: Order Comment: DR REMY ORDERED BMP AND MAGNESIUM.DR HAY ORDERED LIPID CMP TSH. RANGLE Performed By: #### L 501.9520, L501.5200, L500.4050, L500.4100 ####[facility] [place] [address] [place], [address] CA,Total 8.8 mg/dL Normal 8.5-10.1 [facility] [place] Comment on above: Order Comment: DR REMY ORDERED BMP AND MAGNESIUM.DR HAY ORDERED LIPID CMP TSH. RANGLE Performed By: #### L 501.9520, L501.5200, L500.4050, L500.4100 ####[facility] [place] [address] [place], [address] Chloride [Moles/Vol] 104 mmol/L Normal 98-107 [facility] Comment on above: Order Comment: DR REMY ORDERED BMP AND MAGNESIUM.DR HAY ORDERED LIPID CMP TSH. RANGLE Performed By: #### L 501.9520, L501.5200, L500.4050, L500.4100 ####[facility] [place] [address] [place], [address] CO2 [Moles/Vol] 28.0 mmol/L Normal 21.0-32.0 [facility] [place] Comment on above: Order Comment: DR REMY ORDERED BMP AND MAGNESIUM.DR HAY ORDERED LIPID CMP TSH. RANGLE Performed By: #### L 501.9520, L501.5200, L500.4050, L500.4100 ####[facility] [place] [address] [place], [address] Creatinine [Mass/Vol] 1.67 mg/dL High 0.70-1.30 [facility] Comment on above: Order Comment: DR REMY ORDERED BMP AND MAGNESIUM.DR HAY ORDERED LIPID CMP TSH. RANGLE Result Comment: The validity of the calculated GFR GFRAA in patients over70 years has not been determined. Clinical correlation isessential. Performed By: #### L 501.9520, L501.5200, L500.4050, L500.4100 ####[facility] [place] [address] [place], [address] EST GFR - AA 51 mL/min Low >60 [facility] [place] Comment on above: Order Comment: DR REMY ORDERED BMP AND MAGNESIUM.DR HAY ORDERED LIPID CMP TSH. RANGLE Result Comment: Afri can [place]ese GFR Calc Performed By: #### L 501.9520, L501.5200, L500.4050, L500.4100 ####[facility] [place] [address] [place], [address] GAP 6 Normal 5-15 [facility] [place] Comment on above: Order Comment: DR REMY ORDERED BMP AND MAGNESIUM.DR HAY ORDERED LIPID CMP TSH. RANGLE Performed By: #### L 501.9520, L501.5200, L500.4050, L500.4100 ####[facility] [place] [address] [place], [address] GFR/1.73 sq M.predicted among non-blacks MDRD (S/P/Bld) [Vol rate/Area] 42 mL/min/{1.73_m2} Low >60 [facility] [place] Comment on above: Order Comment: DR REMY ORDERED BMP AND MAGNESIUM.DR HAY ORDERED LIPID CMP TSH. RANGLE Result Comment: Non- GFR Calc Performed By: #### L 501.9520, L501.5200, L500.4050, L500.4100 ####[facility] [place] [address] [place], [address] Globulin (S) [Mass/Vol] 3.3 g/dL Normal 2.2-4.2 [facility] [place] Comment on above: Order Comment: DR REMY ORDERED BMP AND MAGNESIUM.DR HAY ORDERED LIPID CMP TSH. RANGLE Performed By: #### L 501.9520, L501.5200, L500.4050, L500.4100 ####[facility] [place] [address] [place], [address] Glucose [Mass/Vol] 146 mg/dL High 74-106 [facility] Comment on above: Order Comment: DR REMY ORDERED BMP AND MAGNESIUM.DR HAY ORDERED LIPID CMP TSH. RANGLE Result Comment: Fast ing Glucose result greater than or equal to 126 mg/dLsuggests DIABETES MELLITUS per A.D.A. criteria. Performed By: #### L 501.9520, L501.5200, L500.4050, L500.4100 ####[facility] [place] [address] [place], [address] Potassium [Moles/Vol] 4.4 mmol/L Normal 3.5-5.1 [facility] Comment on above: Order Comment: DR REMY ORDERED BMP AND MAGNESIUM.DR HAY ORDERED LIPID CMP TSH. RANGLE Performed By: #### L 501.9520, L501.5200, L500.4050, L500.4100 ####[facility] [place] [address] [place], [address] Sodium [Moles/Vol] 138 mmol/L Normal 136-145 [facility] Comment on above: Order Comment: DR REMY ORDERED BMP AND MAGNESIUM.DR HAY ORDERED LIPID CMP TSH. RANGLE Performed By: #### L 501.9520, L501.5200, L500.4050, L500.4100 ####[facility] [address] [place], [address] T PROT 7.0 g/dL Normal 6.4-8.2 [facility] [place] Comment on above: Order Comment: DR REMY ORDERED BMP AND MAGNESIUM.DR HAY ORDERED LIPID CMP TSH. RANGLE Performed By: #### L 501.9520, L501.5200, L500.4050, L500.4100 ####[facility] [address] [place], [address] Urea nitrogen [Mass/Vol] 30 mg/dL High 7-18 [facility] [place] Comment on above: Order Comment: DR REMY ORDERED BMP AND MAGNESIUM.DR HAY ORDERED LIPID CMP TSH. RANGLE Performed By: #### L 501.9520, L501.5200, L500.4050, L500.4100 ####[facility] [address] [place], [address] Estimated glomerular filtrat ion rate (GFR) AmericanOrdered By: Jose Hay on 03-23-2024 Estimated GFR (MDRD) Amer 51 mL/min Low >60 [facility] Comment on above: GFR Calc Glomerular filtration rate ( GFR) estimationOrdered By: Jose Hay on 03-23-2024 Estimated GFR (MDRD) Non-Af Amer 42 mL/min Low >60 [facility] [place] Comment on above: Non- GFR Calc Glucose measurementOrdered B y: Jose Hay on 03-23-2024 Glucose [Mass/Vol] 146 mg/dL High 74-106 [facility] Comment on above: Fasting Glucose resu lt greater than or equal to 126 mg/dL suggests DIABETES MELLITUS per A.D.A. criteria. High density lipoprotein (HD L) measurementOrdered By: Jose Hay on 03-23-2024 Cholesterol in HDL [Mass/Vol] 52 mg/dL >40 [facility] Comment on above: The drugs N-Acetylcy steine and Metamizole may falsely depress this assay. Reference Range HDL <40 mg/dL Low HDL Cholesterol HDL >or= 60 mg/dL High HDL Cholesterol Laboratory - Chemistry and C hemistry - challengeOrdered By: Jose Hay on 03-23-2024 AST [Catalytic activity/Vol] 28 U/L 15-37 [facility] Lipid Profileon 03-23-2024 Cholesterol [Mass/Vol] 158 mg/dL Normal 200 [facility] Comment on above: Order Comment: DR REMY ORDERED BMP AND MAGNESIUM.DR HAY ORDERED LIPID CMP TSH. RANGLE Result Comment: <200 mg/dL Desirable 200-240 mg/dL Borderline >240 mg/dL High Risk Performed By: #### L 501.9520, L501.5200, L500.4050, L500.4100 ####[facility] [address] [place], [address] Cholesterol in HDL [Mass/Vol] 52 mg/dL Normal [facility] Comment on above: Order Comment: DR REMY ORDERED BMP AND MAGNESIUM.DR HAY ORDERED LIPID CMP TSH. RANGLE Result Comment: The drugs N-Acetylcysteine and Metamizole may falselydepress this assay. Reference Range HDL <40 mg/dL Low HDL Cholesterol HDL >or= 60 mg/dL High HDL Cholesterol Performed By: #### L 501.9520, L501.5200, L500.4050, L500.4100 ####[facility] [address] [place], [address] Cholesterol in LDL [Mass/Vol] 61 mg/dL Normal 0-130 [facility] [place] Comment on above: Order Comment: DR REMY ORDERED BMP AND MAGNESIUM.DR HAY ORDERED LIPID CMP TSH. RANGLE Performed By: #### L 501.9520, L501.5200, L500.4050, L500.4100 ####[facility] [place] [address] [place], [address] Cholesterol in VLDL [Mass/Vol] 45 mg/dL High 5-40 [facility] [place] Comment on above: Order Comment: DR REMY ORDERED BMP AND MAGNESIUM.DR HAY ORDERED LIPID CMP TSH. RANGLE Performed By: #### L 501.9520, L501.5200, L500.4050, L500.4100 ####[facility] [place] [address] [place], [address] Triglyceride [Mass/Vol] 225 mg/dL High [facility] Comment on above: Order Comment: DR REMY ORDERED BMP AND MAGNESIUM.DR HAY ORDERED LIPID CMP TSH. RANGLE Result Comment: The drugs N-Acetylcysteine and Metamizole may falselydepress this assay.Serum Triglycerides Reference Interval Normal <150 mg/dL Borderline high 150 - 199 mg/dL High 200 - 499 mg/dL Very High > or = 500 mg/dL Performed By: #### L 501.9520, L501.5200, L500.4050, L500.4100 ####[facility] [address] [place], [address] Low density lipoprotein (LDL ) cholesterol measurementOrdered By: Jose Hay on 03-23-2024 Cholesterol in LDL [Mass/Vol] 61 mg/dL 0-130 [facility] Magnesiumon 03-23-2024 Magnesium [Mass/Vol] 2.1 mg/dL Normal 1.6-2.6 [facility] Comment on above: Order Comment: DR REMY ORDERED BMP AND MAGNESIUM.DR HAY ORDERED LIPID CMP TSH. RANGLE Performed By: #### L 501.9520, L501.5200, L500.4050, L500.4100 ####[facility] [address] [place], [address] Magnesium measurementOrdered By: Jose Hay on 03-23-2024 Magnesium [Mass/Vol] 2.1 mg/dL 1.6-2.6 [facility] Potassium measurementOrdered By: Jose Hay on 03-23-2024 Potassium [Moles/Vol] 4.4 mmol/L 3.5-5.1 [facility] Serum anion gap measurementO rdered By: Jose Hay on 03-23-2024 Anion gap [Moles/Vol] 6 mmol/L 5-15 [facility] Serum globulin measurementOr dered By: Jose Hay on 03-23-2024 Globulin (S) [Mass/Vol] 3.3 g/dL 2.2-4.2 [facility] Serum or plasma alanine guerrero otransferase (ALT) measurementOrdered By: Jose Hay on 03-23-2024 ALT [Catalytic activity/Vol] 52 U/L 16-61 [facility] Serum or plasma albumin francine urement (mass/volume)Ordered By: Jose Hay on 03-23-2024 Albumin [Mass/Vol] 3.7 g/dL 3.2-5.0 [facility] Serum or plasma alkaline bell sphatase measurementOrdered By: Jose Hay on 03-23-2024 ALP [Catalytic activity/Vol] 92 U/L 45-117 [facility] Serum or plasma calcium francine urement (mass/volume)Ordered By: Jose Hay on 03-23-2024 Calcium [Mass/Vol] 8.8 mg/dL 8.5-10.1 [facility] Serum or plasma cholesterol measurement (mass/volume)Ordered By: Jose Hay on 03-23-2024 Cholesterol [Mass/Vol] 158 mg/dL <200 [facility] Comment on above: <200 mg/dL Desirable 200-240 mg/dL Borderline >240 mg/dL High Risk Serum or plasma creatinine m easurement (mass/volume)Ordered By: Jose Hay on 03-23-2024 Creatinine [Mass/Vol] 1.67 mg/dL High 0.70-1.30 [facility] Comment on above: The validity of the calculated GFR & GFRAA in patients over 70 years has not been determined. Clinical correlation is essential. Serum or plasma urea nitroge n measurement (mass/volume)Ordered By: Jose Hay on 03-23-2024 Urea nitrogen [Mass/Vol] 30 mg/dL High 7-18 [facility] Sodium levelOrdered By: Ernst Hay on 03-23-2024 Sodium [Moles/Vol] 138 mmol/L 136-145 [facility] TSH QnOrdered By: Jose rodriguez on 03-23-2024 Thyroid Stimulating Hormone (TSH) 5.340 uIU/mL High 0.358-3.74 0 [facility] Thyroid Stim Hormone (TSH)on 03-23-2024 TSH 5.340 uIU/mL High 0.358-3.74 0 [facility] Comment on above: Order Comment: DR REMY ORDERED BMP AND MAGNESIUM.DR HAY ORDERED LIPID CMP TSH. RANGLE Performed By: #### L 501.9520, L501.5200, L500.4050, L500.4100 ####[facility] [address] [place], [place], [id number] Total proteinOrdered By: Emmanuel Hay on 03-23-2024 Protein [Mass/Vol] 7.0 g/dL 6.4-8.2 [facility] Triglycerides measurementOrd ered By: Jose Hay on 03-23-2024 Triglyceride [Mass/Vol] 225 mg/dL High <199 [facility] Comment on above: The drugs N-Acetylcy steine and Metamizole may falsely depress this assay.Serum Triglycerides Reference Interval Normal <150 mg/dL Borderline high 150 - 199 mg/dL High 200 - 499 mg/dL Very High > or = 500 mg/dL Very low density lipoprotein (VLDL) cholesterol measurementOrdered By: Jose Hay on 03-23-2024 VLDL Cholesterol 45 mg/dL High 5-40 [facility] Cardiology Visit Reporton Cardiology Visit Report Normal [facility] Basophil percentageOrdered B y: Marycarmen Rodriguez on 05-07-2023 Chloride [Moles/Vol] 103 mmol/L 98-107 [facility] Glucose [Mass/Vol] 172 mg/dL 74-106 [facility] Comment on above: Fasting Glucose resu lt greater than or equal to 126 mg/dL suggests DIABETES MELLITUS per A.D.A. criteria. Potassium [Moles/Vol] 3.7 mmol/L 3.5-5.1 [facility] Sodium [Moles/Vol] 138 mmol/L 136-145 [facility] Laboratory - Chemistry and C hemistry - challengeOrdered By: Marycarmen Rodriguez on 05-07-2023 CO2 [Moles/Vol] 27.0 mmol/L 21.0-32.0 [facility] Urea nitrogen/Creatinine [Mass ratio] 13.9 mg/mg 10-20 [facility] No Panel InformationOrdered By: Marycarmen Rodriguez on 05-07-2023 Estimated GFR (MDRD) Amer 74 mL/min >60 [facility] Comment on above: GFR Calc Estimated GFR (MDRD) Non-Af Amer 61 mL/min >60 [facility] Comment on above: Non- GFR Calc Serum or plasma calcium francine urement (mass/volume)Ordered By: Marycarmen Rodriguez on 05-07-2023 Calcium [Mass/Vol] 8.6 mg/dL 8.5-10.1 [facility] Serum or plasma creatinine m easurement (mass/volume)Ordered By: Marycarmen Rodriguez on 05-07-2023 Creatinine [Mass/Vol] 1.22 mg/dL 0.70-1.30 [facility] Comment on above: The validity of the calculated GFR & GFRAA in patients over 70 years has not been determined. Clinical correlation is essential. Serum or plasma urea nitroge n measurement (mass/volume)Ordered By: Marycarmen Rodriguez on 05-07-2023 Urea nitrogen [Mass/Vol] 17 mg/dL 7-18 [facility] Thin prep Papanicolaou smear with manual screeningOrdered By: Marycarmen Rodriguez on 05-07-2023 Thin prep Papanicolaou smear with manual screening 8 5-15 [facility] Basophil percentageOrdered B y: Jose Hay on 12-15-2022 Chloride [Moles/Vol] 110 mmol/L 98-107 [facility] Glucose [Mass/Vol] 121 mg/dL 74-106 [facility] Comment on above: Fasting Glucose resu lt from 100 to 125 mg/dL suggests IMPAIRED HOMEOSTASIS per A.D.A. criteria. Potassium [Moles/Vol] 4.0 mmol/L 3.5-5.1 [facility] Sodium [Moles/Vol] 139 mmol/L 136-145 [facility] WBC (Bld) [#/Vol] 7.3 10*3/uL 4.4-11.0 [facility] Blood erythrocytes count (nu mber/volume)Ordered By: Jose Hay on 12-15-2022 RBC (Bld) [#/Vol] 5.18 10*6/uL 4.6-6.[address] [facility] Blood hemoglobin measurement (mass/volume)Ordered By: Jose Hay on 12-15-2022 Hemoglobin (Bld) [Mass/Vol] 15.2 g/dL 13.0-16.5 [facility] Blood platelet mean volumeOr dered By: Jose Hay on 12-15-2022 Platelet mean volume (Bld) [Entitic vol] 12.2 fL 6.2-12.0 [facility] Determination of erythrocyte mean corpuscular volume (MCV)Ordered By: Jose Hay on 12-15-2022 MCV (RBC) [Entitic vol] 90.2 fL 80-94 [facility] Hematocrit Auto (Bld) [Volum e fraction]Ordered By: Jose Hay on 12-15-2022 Hematocrit (Bld) [Volume fraction] 46.7 % 40-54 [facility] Laboratory - Chemistry and C hemistry - challengeOrdered By: Jose Hay on 12-15-2022 CO2 [Moles/Vol] 23.0 mmol/L 21.0-32.0 [facility] Natriuretic peptide B (Bld) [Mass/Vol] 38.1 pg/mL 0-100 [facility] Urea nitrogen/Creatinine [Mass ratio] 13.5 mg/mg 10-20 [facility] Laboratory - Hematology and Cell countsOrdered By: Jose Hay on 12-15-2022 Erythrocyte distribution width (RBC) [Entitic vol] 47.5 fL 35.1-43.9 [facility] Erythrocyte distribution width (RBC) [Ratio] 14.4 % 11.6-14.6 [facility] MCH (RBC) [Entitic mass] 29.3 pg 27.0-32.0 [facility] MCHC Auto (RBC) [Mass/Vol]Or dered By: Jose Hay on 12-15-2022 MCHC (RBC) [Mass/Vol] 32.5 g/dL 32-36 [facility] No Panel InformationOrdered By: Jose Hay on 12-15-2022 Estimated GFR (MDRD) Amer 83 mL/min >60 [facility] Comment on above: GFR Calc Estimated GFR (MDRD) Non-Af Amer 68 mL/min >60 [facility] Comment on above: Non- GFR Calc Platelets bldOrdered By: Emmanuel Hay on 12-15-2022 Platelets (Bld) [#/Vol] 143 10*3/uL 150-450 [facility] Serum or plasma calcium francine urement (mass/volume)Ordered By: Jose Hay on 12-15-2022 Calcium [Mass/Vol] 8.8 mg/dL 8.5-10.1 [facility] Serum or plasma creatinine m easurement (mass/volume)Ordered By: Jose Hay on 12-15-2022 Creatinine [Mass/Vol] 1.11 mg/dL 0.70-1.30 [facility] Comment on above: The validity of the calculated GFR & GFRAA in patients over 70 years has not been determined. Clinical correlation is essential. Serum or plasma urea nitroge n measurement (mass/volume)Ordered By: Jose Hay on 12-15-2022 Urea nitrogen [Mass/Vol] 15 mg/dL 7-18 [facility] Thin prep Papanicolaou smear with manual screeningOrdered By: Jose Hay on 12-15-2022 Thin prep Papanicolaou smear with manual screening 6 5-15 [facility] Absolute lymphocyte countOrd ered By: Luz Elena Mckeon on 10-13-2022 Lymphocytes Auto (Unsp spec) [#/Vol] 1.21 10*3/uL 0.83-4.51 [facility] Basophil percentageOrdered B y: Luz Elena Mckeon on 10-13-2022 Basophils/100 WBC (Bld) 0.5 % 0-1 [facility] Chloride [Moles/Vol] 106 mmol/L 98-107 [facility] Eosinophils/100 WBC (Bld) 1.4 % 0-5 [facility] Glucose [Mass/Vol] 277 mg/dL 74-106 [facility] Comment on above: Glucose result great er than or equal to 200 mg/dLsuggests DIABETES MELLITUS per A.D.A. criteria. Neutrophils (Bld) [#/Vol] 4.0 10*3/uL 2.0-7.7 [facility] Neutrophils/100 WBC (Bld) 68.5 % 47-70 [facility] Potassium [Moles/Vol] 4.1 mmol/L 3.5-5.1 [facility] Sodium [Moles/Vol] 139 mmol/L 136-145 [facility] WBC (Bld) [#/Vol] 5.8 10*3/uL 4.4-11.0 [facility] Blood erythrocytes count (nu mber/volume)Ordered By: Luz Elena Mckeon on 10-13-2022 RBC (Bld) [#/Vol] 4.66 10*6/uL 4.6-6.[address] [facility] Blood hemoglobin measurement (mass/volume)Ordered By: Luz Elena Mckeon on 10-13-2022 Hemoglobin (Bld) [Mass/Vol] 13.6 g/dL 13.0-16.5 [facility] Blood lymphocytes/100 leukoc ytesOrdered By: Luz Elena Mckeon on 10-13-2022 Lymphocytes/100 WBC (Bld) 20.7 % 19-41 [facility] Blood monocytes/100 leukocyt esOrdered By: Luz Elena Mckeon on 10-13-2022 Monocytes/100 WBC (Bld) 8.6 % 0-10 [facility] Blood platelet mean volumeOr dered By: Luz Elena Mckeon on 10-13-2022 Platelet mean volume (Bld) [Entitic vol] 12.6 fL 6.2-12.0 [facility] Determination of erythrocyte mean corpuscular volume (MCV)Ordered By: Luz Elena Mckeon on 10-13-2022 MCV (RBC) [Entitic vol] 89.5 fL 80-94 [facility] Hematocrit Auto (Bld) [Volum e fraction]Ordered By: Luz Elena Mckeon on 10-13-2022 Hematocrit (Bld) [Volume fraction] 41.7 % 40-54 [facility] Laboratory - Chemistry and C hemistry - challengeOrdered By: Luz Elena Mckeon on 10-13-2022 CO2 [Moles/Vol] 27.0 mmol/L 21.0-32.0 [facility] Free T4 [Mass/Vol] 0.77 ng/dL 0.76-1.46 [facility] Magnesium [Mass/Vol] 2.1 mg/dL 1.6-2.[address] [facility] [address] [facility] Natriuretic peptide B (Bld) [Mass/Vol] 47.2 pg/mL 0-100 [facility] Urea nitrogen/Creatinine [Mass ratio] 17.2 mg/mg 10-20 [facility] Laboratory - Hematology and Cell countsOrdered By: Luz Elena Mckeon on 10-13-2022 Erythrocyte distribution width (RBC) [Entitic vol] 46.1 fL 35.1-43.9 [facility] Erythrocyte distribution width (RBC) [Ratio] 14.1 % 11.6-14.6 [facility] Immature granulocytes/100 WBC (Bld) 0.300 % 0.0-0.9 [facility] Comment on above: IG% - Immature Granu locytes (promyelocytes, myelocytes and metamyelocytes) > 1% indicates that a LEFT SHIFT is Present. MCH (RBC) [Entitic mass] 29.2 pg 27.0-32.0 [facility] Nucleated RBC/100 WBC (Bld) [Ratio] 0 % 0-5 [facility] MCHC Auto (RBC) [Mass/Vol]Or dered By: Luz Elena Mckeon on 10-13-2022 MCHC (RBC) [Mass/Vol] 32.6 g/dL 32-36 [facility] No Panel InformationOrdered By: Luz Elena Mckeon on 10-13-2022 Estimated GFR (MDRD) Amer 61 mL/min >60 [facility] Comment on above: GFR Calc Estimated GFR (MDRD) Non-Af Amer 50 mL/min >60 [facility] Comment on above: Non- GFR Calc Free Triiodothyronine (T3) pg/dL 2.7 pg/mL 2.18-3.98 [facility] Thyroid Stimulating Hormone (TSH) 4.12 uIU/mL 0.358-3.74 [facility] Platelets bldOrdered By: Loco Mckeon on 10-13-2022 Platelets (Bld) [#/Vol] 126 10*3/uL 150-450 [facility] Serum or plasma calcium francine urement (mass/volume)Ordered By: Luz Elena Mckeon on 10-13-2022 Calcium [Mass/Vol] 8.5 mg/dL 8.5-10.1 [facility] Serum or plasma creatinine m easurement (mass/volume)Ordered By: Luz Elena Mckeon on 10-13-2022 Creatinine [Mass/Vol] 1.45 mg/dL 0.70-1.30 [facility] Comment on above: The validity of the calculated GFR & GFRAA in patients over 70 years has not been determined. Clinical correlation is essential. Serum or plasma urea nitroge n measurement (mass/volume)Ordered By: Luz Elena Mckeon on 10-13-2022 Urea nitrogen [Mass/Vol] 25 mg/dL 7-18 [facility] Thin prep Papanicolaou smear with manual screeningOrdered By: Luz Elena Mckeon on 10-13-2022 Thin prep Papanicolaou smear with manual screening 6 5-15 [facility] COVID-19 virus antigen assay Ordered By: Shaan Santos on 09-21-2022 SARS-CoV-2 (COVID-19) Ag IA.rapid Ql (Resp) [facility] COVID-19 virus antigen assay Ordered By: Dr. Santos on 09-21-2022 SARS-CoV-2 (COVID-19) Ag IA.rapid Ql (Resp) [facility] Glucose Glucometer (BldC) [M ass/Vol]Ordered By: Dr. Santos on 09-21-2022 Glucose [Mass/Vol] 193 mg/dL 74-106 [facility] Comment on above: MANAGEMENT OF PATIEN T CARE PER NURSING PROTOCOL Absolute lymphocyte countOrd ered By: Dr. Leo on 09-18-2022 Lymphocytes Auto (Unsp spec) [#/Vol] 1.83 10*3/uL 0.83-4.51 [facility] Basophil percentageOrdered B y: Dr. Leo on 09-18-2022 Basophils/100 WBC (Bld) 0.3 % 0-1 [facility] Bilirubin [Mass/Vol] 1.20 mg/dL 0.20-1.00 [facility] Comment on above: For patients on eltr ombopag therapy, use of Dimension [place] TBIL is not recommended. Chloride [Moles/Vol] 108 mmol/L 98-107 [facility] Cholesterol [Mass/Vol] 114 mg/dL <200 [facility] Comment on above: <200 mg/dL Desirable 200-240 mg/dL Borderline >240 mg/dL High Risk Eosinophils/100 WBC (Bld) 2.0 % 0-5 [facility] Glucose [Mass/Vol] 87 mg/dL 74-106 [facility] Neutrophils (Bld) [#/Vol] 4.3 10*3/uL 2.0-7.7 [facility] Neutrophils/100 WBC (Bld) 60.9 % 47-70 [facility] Potassium [Moles/Vol] 3.5 mmol/L 3.5-5.1 [facility] Protein [Mass/Vol] 5.9 g/dL 6.4-8.2 [facility] Sodium [Moles/Vol] 142 mmol/L 136-145 [facility] Triglyceride [Mass/Vol] 174 mg/dL <199 [facility] Comment on above: The drugs N-Acetylcy steine and Metamizole may falsely depress this assay.Serum Triglycerides Reference Interval Normal <150 mg/dL Borderline high 150 - 199 mg/dL High 200 - 499 mg/dL Very High > or = 500 mg/dL WBC (Bld) [#/Vol] 7.0 10*3/uL 4.4-11.0 [facility] Blood erythrocytes count (nu mber/volume)Ordered By: Dr. Leo on 09-18-2022 RBC (Bld) [#/Vol] 4.64 10*6/uL 4.6-6.[address] [facility] Blood hemoglobin measurement (mass/volume)Ordered By: Dr. Leo on 09-18-2022 Hemoglobin (Bld) [Mass/Vol] 13.2 g/dL 13.0-16.5 [facility] Blood lymphocytes/100 leukoc ytesOrdered By: Dr. Leo on 09-18-2022 Lymphocytes/100 WBC (Bld) 26.1 % 19-41 [facility] Blood monocytes/100 leukocyt esOrdered By: Dr. Leo on 09-18-2022 Monocytes/100 WBC (Bld) 10.4 % 0-10 [facility] Blood platelet mean volumeOr dered By: Dr. Leo on 09-18-2022 Platelet mean volume (Bld) [Entitic vol] 12.3 fL 6.2-12.0 [facility] Determination of erythrocyte mean corpuscular volume (MCV)Ordered By: Dr. Leo on 09-18-2022 MCV (RBC) [Entitic vol] 90.1 fL 80-94 [facility] Hematocrit Auto (Bld) [Volum e fraction]Ordered By: Dr. Leo on 09-18-2022 Hematocrit (Bld) [Volume fraction] 41.8 % 40-54 [facility] Laboratory - Chemistry and C hemistry - challengeOrdered By: Dr. Leo on 09-18-2022 ALP [Catalytic activity/Vol] 113 U/L 45-117 [facility] ALT [Catalytic activity/Vol] 31 U/L 16-61 [facility] CO2 [Moles/Vol] 26.0 mmol/L 21.0-32.0 [facility] Globulin (S) [Mass/Vol] 3.0 g/dL 2.2-4.2 [facility] Urea nitrogen/Creatinine [Mass ratio] 13.4 mg/mg 10-20 [facility] Laboratory - Hematology and Cell countsOrdered By: Dr. Leo on 09-18-2022 Erythrocyte distribution width (RBC) [Entitic vol] 46.9 fL 35.1-43.9 [facility] Erythrocyte distribution width (RBC) [Ratio] 14.4 % 11.6-14.6 [facility] Immature granulocytes/100 WBC (Bld) 0.300 % 0.0-0.9 [facility] Comment on above: IG% - Immature Granu locytes (promyelocytes, myelocytes and metamyelocytes) > 1% indicates that a LEFT SHIFT is Present. MCH (RBC) [Entitic mass] 28.4 pg 27.0-32.0 [facility] Nucleated RBC/100 WBC (Bld) [Ratio] 0 % 0-[address] [facility] [address]) [Mass/Vol]Or dered By: Dr. Leo on 09-18-2022 MCHC (RBC) [Mass/Vol] 31.6 g/dL 32-36 [facility] No Panel InformationOrdered By: Dr. Leo on 09-18-2022 Estimated Creatinine Clearance Calc 47.13 ml/min [facility] Estimated GFR (MDRD) Amer 71 mL/min >60 [facility] Comment on above: GFR Calc Estimated GFR (MDRD) Non-Af Amer 58 mL/min >60 [facility] Comment on above: Non- GFR Calc Thyroid Stimulating Hormone (TSH) 3.64 uIU/mL 0.358-3.74 [facility] Troponin I High Sensitivity 8 pg/mL 3.0-78.0 [facility] Comment on above: Please Note: [place] t Units and Gender Specific Reference Ranges. For more information see Policy Stat Procedure [place] High Sensitivity Troponin (TNIH) and attachments. Platelets bldOrdered By: Dr. Leo on 09-18-2022 Platelets (Bld) [#/Vol] 131 10*3/uL 150-450 [facility] Serum or plasma albumin francine urement (mass/volume)Ordered By: Dr. Leo on 09-18-2022 Albumin [Mass/Vol] 2.9 g/dL 3.2-5.0 [facility] Serum or plasma albumin/glob ulin mass ratioOrdered By: Dr. Leo on 09-18-2022 Albumin/Globulin [Mass ratio] 1.0 {ratio} 0.9-2.4 [facility] Serum or plasma calcium francine urement (mass/volume)Ordered By: Dr. Leo on 09-18-2022 Calcium [Mass/Vol] 7.6 mg/dL 8.5-10.1 [facility] Serum or plasma cholesterol in HDL measurement (mass/volume)Ordered By: Dr. Leo on 09-18-2022 Cholesterol in HDL [Mass/Vol] 36 mg/dL >40 [facility] Comment on above: The drugs N-Acetylcy steine and Metamizole may falsely depress this assay. Reference Range HDL <40 mg/dL Low HDL Cholesterol HDL >or= 60 mg/dL High HDL Cholesterol Serum or plasma cholesterol in VLDL measurement (mass/volume)Ordered By: Dr. Leo on 09-18-2022 Cholesterol in VLDL [Mass/Vol] 35 mg/dL 5-40 [facility] Serum or plasma creatinine m easurement (mass/volume)Ordered By: Dr. Leo on 09-18-2022 Creatinine [Mass/Vol] 1.27 mg/dL 0.70-1.30 [facility] Comment on above: The validity of the calculated GFR & GFRAA in patients over 70 years has not been determined. Clinical correlation is essential. Serum or plasma low density lipoprotein (LDL) cholesterol measurement (mass/volume)Ordered By: Dr. Leo on 09-18-2022 Cholesterol in LDL [Mass/Vol] 43 mg/dL 0-130 [facility] Serum or plasma urea nitroge n measurement (mass/volume)Ordered By: Dr. Leo on 09-18-2022 Urea nitrogen [Mass/Vol] 17 mg/dL 7-18 [facility] Thin prep Papanicolaou smear with manual screeningOrdered By: Dr. Leo on 09-18-2022 Thin prep Papanicolaou smear with manual screening 21 U/L 15-37 [facility] Thin prep Papanicolaou smear with manual screening 8 5-15 [facility] Whole blood hemoglobin A1c/t otal hemoglobin ratio (mass fraction)Ordered By: Dr. Leo on 09-18-2022 HbA1c (Bld) [Mass fraction] 7.7 % 3.8-5.6 [facility] Comment on above: Normal < 5.7 % Predi abetic 5.7 - 6.4 % Diabetic >or= 6.5 % Please note range changes. INR in Blood by Coagulation assayOrdered By: Dr. Hall on 09-17-2022 INR Coag (Bld) [Relative time] 0.9 {INR} [facility] Laboratory - Chemistry and C hemistry - challengeOrdered By: Dr. Leo on 09-17-2022 Magnesium [Mass/Vol] 2.3 mg/dL 1.6-2.6 [facility] Laboratory - CoagulationOrde red By: Dr. Hall on 09-17-2022 aPTT Coag (Bld) [Time] 32.1 s 24.1-36.2 [facility] PT Coag (PPP) [Time] 12.3 s 11.7-14.9 [facility] Basophil percentageOrdered B y: Dr. Hay on 09-01-2022 Bilirubin [Mass/Vol] 0.70 mg/dL 0.20-1.00 [facility] Comment on above: For patients on eltr ombopag therapy, use of Dimension [place] TBIL is not recommended. Chloride [Moles/Vol] 112 mmol/L 98-107 [facility] Glucose [Mass/Vol] 151 mg/dL 74-106 [facility] Comment on above: Fasting Glucose resu lt greater than or equal to 126 mg/dL suggests DIABETES MELLITUS per A.D.A. criteria. Potassium [Moles/Vol] 3.9 mmol/L 3.5-5.1 [facility] Protein [Mass/Vol] 5.7 g/dL 6.4-8.2 [facility] Sodium [Moles/Vol] 142 mmol/L 136-145 [facility] WBC (Bld) [#/Vol] 4.7 10*3/uL 4.4-11.0 [facility] Blood erythrocytes count (nu mber/volume)Ordered By: Dr. Hay on 09-01-2022 RBC (Bld) [#/Vol] 4.60 10*6/uL 4.6-6.[address] [facility] Blood hemoglobin measurement (mass/volume)Ordered By: Dr. Hay on 09-01-2022 Hemoglobin (Bld) [Mass/Vol] 13.0 g/dL 13.0-16.5 [facility] Blood platelet mean volumeOr dered By: Dr. Hay on 09-01-2022 Platelet mean volume (Bld) [Entitic vol] 12.8 fL 6.2-12.0 [facility] Determination of erythrocyte mean corpuscular volume (MCV)Ordered By: Dr. Hay on 09-01-2022 MCV (RBC) [Entitic vol] 89.1 fL 80-94 [facility] Hematocrit Auto (Bld) [Volum e fraction]Ordered By: Dr. Hay on 05-02-2023 Hematocrit (Bld) [Volume fraction] 41.0 % 40-54 [facility] Laboratory - Chemistry and C hemistry - challengeOrdered By: Dr. Hay on 09-01-2022 ALP [Catalytic activity/Vol] 149 U/L 45-117 [facility] ALT [Catalytic activity/Vol] 35 U/L 16-61 [facility] CO2 [Moles/Vol] 27.0 mmol/L 21.0-32.0 [facility] Globulin (S) [Mass/Vol] 2.9 g/dL 2.2-4.2 [facility] Urea nitrogen/Creatinine [Mass ratio] 15.8 mg/mg 10-20 [facility] Laboratory - Hematology and Cell countsOrdered By: Dr. Hay on 09-01-2022 Erythrocyte distribution width (RBC) [Entitic vol] 44.1 fL 35.1-43.9 [facility] Erythrocyte distribution width (RBC) [Ratio] 13.5 % 11.6-14.6 [facility] MCH (RBC) [Entitic mass] 28.3 pg 27.0-32.0 [facility] MCHC Auto (RBC) [Mass/Vol]Or dered By: Dr. Hay on 09-01-2022 MCHC (RBC) [Mass/Vol] 31.7 g/dL 32-36 [facility] No Panel InformationOrdered By: Dr. Hay on 09-01-2022 Estimated Creatinine Clearance Calc 46.51 ml/min [facility] Estimated GFR (MDRD) Amer 67 mL/min >60 [facility] Comment on above: GFR Calc Estimated GFR (MDRD) Non-Af Amer 55 mL/min >60 [facility] Comment on above: Non- GFR Calc Platelets bldOrdered By: Dr. Hay on 09-01-2022 Platelets (Bld) [#/Vol] 106 10*3/uL 150-450 [facility] Serum or plasma albumin francine urement (mass/volume)Ordered By: Dr. Hay on 09-01-2022 Albumin [Mass/Vol] 2.8 g/dL 3.2-5.0 [facility] Serum or plasma albumin/glob ulin mass ratioOrdered By: Dr. Hay on 09-01-2022 Albumin/Globulin [Mass ratio] 1.0 {ratio} 0.9-2.4 [facility] Serum or plasma calcium francine urement (mass/volume)Ordered By: Dr. Hay on 09-01-2022 Calcium [Mass/Vol] 8.0 mg/dL 8.5-10.1 [facility] Serum or plasma creatinine m easurement (mass/volume)Ordered By: Dr. Hay on 09-01-2022 Creatinine [Mass/Vol] 1.33 mg/dL 0.70-1.30 [facility] Comment on above: The validity of the calculated GFR & GFRAA in patients over 70 years has not been determined. Clinical correlation is essential. Serum or plasma urea nitroge n measurement (mass/volume)Ordered By: Dr. Hay on 09-01-2022 Urea nitrogen [Mass/Vol] 21 mg/dL 7-18 [facility] Thin prep Papanicolaou smear with manual screeningOrdered By: Dr. Hay on 09-01-2022 Thin prep Papanicolaou smear with manual screening 21 U/L 15-37 [facility] Thin prep Papanicolaou smear with manual screening 3 5-15 [facility] No Panel InformationOrdered By: Dr. Hay on 08-31-2022 Activated Clotting Time 275 sec 74-137 [facility] Basophil percentageOrdered B y: Dr. Hay on 08-19-2022 Chloride [Moles/Vol] 108 mmol/L 98-107 [facility] Glucose [Mass/Vol] 158 mg/dL 74-106 [facility] Comment on above: Fasting Glucose resu lt greater than or equal to 126 mg/dL suggests DIABETES MELLITUS per A.D.A. criteria. Potassium [Moles/Vol] 4.3 mmol/L 3.5-5.1 [facility] Sodium [Moles/Vol] 137 mmol/L 136-145 [facility] WBC (Bld) [#/Vol] 8.2 10*3/uL 4.4-11.0 [facility] Blood erythrocytes count (nu mber/volume)Ordered By: Dr. Hay on 08-19-2022 RBC (Bld) [#/Vol] 5.05 10*6/uL 4.6-6.[address] [facility] Blood hemoglobin measurement (mass/volume)Ordered By: Dr. Hay on 08-19-2022 Hemoglobin (Bld) [Mass/Vol] 14.3 g/dL 13.0-16.5 [facility] Blood platelet mean volumeOr dered By: Dr. Hay on 08-19-2022 Platelet mean volume (Bld) [Entitic vol] 12.5 fL 6.2-12.0 [facility] Determination of erythrocyte mean corpuscular volume (MCV)Ordered By: Dr. Hay on 08-19-2022 MCV (RBC) [Entitic vol] 88.3 fL 80-94 [facility] Hematocrit Auto (Bld) [Volum e fraction]Ordered By: Dr. Hay on 08-19-2022 Hematocrit (Bld) [Volume fraction] 44.6 % 40-54 [facility] INR in Blood by Coagulation assayOrdered By: Dr. Hay on 08-19-2022 INR Coag (Bld) [Relative time] 1.1 {INR} [facility] Laboratory - Chemistry and C hemistry - challengeOrdered By: Dr. Hay on 08-19-2022 CO2 [Moles/Vol] 25.0 mmol/L 21.0-32.0 [facility] Urea nitrogen/Creatinine [Mass ratio] 12.0 mg/mg 10-20 [facility] Laboratory - CoagulationOrde red By: Dr. Hay on 08-19-2022 aPTT Coag (Bld) [Time] 30.9 s 24.1-36.2 [facility] PT Coag (PPP) [Time] 13.4 s 11.7-14.9 [facility] Laboratory - Hematology and Cell countsOrdered By: Dr. Hay on 08-19-2022 Erythrocyte distribution width (RBC) [Entitic vol] 44.8 fL 35.1-43.9 [facility] Erythrocyte distribution width (RBC) [Ratio] 13.9 % 11.6-14.6 [facility] MCH (RBC) [Entitic mass] 28.3 pg 27.0-32.0 [facility] MCHC Auto (RBC) [Mass/Vol]Or dered By: Dr. Hay on 08-19-2022 MCHC (RBC) [Mass/Vol] 32.1 g/dL 32-36 [facility] No Panel InformationOrdered By: Dr. Hay on 08-19-2022 Estimated GFR (MDRD) Amer 72 mL/min >60 [facility] Comment on above: GFR Calc Estimated GFR (MDRD) Non-Af Amer 60 mL/min >60 [facility] Comment on above: Non- GFR Calc Platelets bldOrdered By: Dr. Hay on 08-19-2022 Platelets (Bld) [#/Vol] 151 10*3/uL 150-450 [facility] Serum or plasma calcium francine urement (mass/volume)Ordered By: Dr. Hay on 08-19-2022 Calcium [Mass/Vol] 9.0 mg/dL 8.5-10.1 [facility] Serum or plasma creatinine m easurement (mass/volume)Ordered By: Dr. Hay on 08-19-2022 Creatinine [Mass/Vol] 1.25 mg/dL 0.70-1.30 [facility] Comment on above: The validity of the calculated GFR & GFRAA in patients over 70 years has not been determined. Clinical correlation is essential. Serum or plasma urea nitroge n measurement (mass/volume)Ordered By: Dr. Hay on 08-19-2022 Urea nitrogen [Mass/Vol] 15 mg/dL 7-18 [facility] Thin prep Papanicolaou smear with manual screeningOrdered By: Dr. Hay on 08-19-2022 Thin prep Papanicolaou smear with manual screening 4 5-15 [facility] Basophil percentageOrdered B y: Dr. Rodriguez on 06-11-2022 Chloride [Moles/Vol] 102 mmol/L 98-107 [facility] Glucose [Mass/Vol] 274 mg/dL 74-106 [facility] Comment on above: Glucose result great er than or equal to 200 mg/dLsuggests DIABETES MELLITUS per A.D.A. criteria. Potassium [Moles/Vol] 4.3 mmol/L 3.5-5.1 [facility] Sodium [Moles/Vol] 136 mmol/L 136-145 [facility] Laboratory - Chemistry and C hemistry - challengeOrdered By: Dr. Rodriguez on 06-11-2022 CO2 [Moles/Vol] 24.0 mmol/L 21.0-32.0 [facility] Magnesium [Mass/Vol] 2.2 mg/dL 1.6-2.6 [facility] Urea nitrogen/Creatinine [Mass ratio] 15.7 mg/mg 10-20 [facility] No Panel InformationOrdered By: Dr. Rodriguez on 06-11-2022 Estimated GFR (MDRD) Amer 67 mL/min >60 [facility] Comment on above: GFR Calc Estimated GFR (MDRD) Non-Af Amer 55 mL/min >60 [facility] Comment on above: Non- GFR Calc Serum or plasma calcium francine urement (mass/volume)Ordered By: Dr. Rodriguez on 06-11-2022 Calcium [Mass/Vol] 8.7 mg/dL 8.5-10.1 [facility] Serum or plasma creatinine m easurement (mass/volume)Ordered By: Dr. Rodriguez on 06-11-2022 Creatinine [Mass/Vol] 1.34 mg/dL 0.70-1.30 [facility] Comment on above: The validity of the calculated GFR & GFRAA in patients over 70 years has not been determined. Clinical correlation is essential. Serum or plasma urea nitroge n measurement (mass/volume)Ordered By: Dr. Rodriguez on 06-11-2022 Urea nitrogen [Mass/Vol] 21 mg/dL 7-18 [facility] Thin prep Papanicolaou smear with manual screeningOrdered By: Dr. Rodriguez on 06-11-2022 Thin prep Papanicolaou smear with manual screening 10 5-15 [facility] Absolute lymphocyte countOrd ered By: Luz Elena Mckeon on 04-14-2022 Lymphocytes Auto (Unsp spec) [#/Vol] 1.60 10*3/uL 0.83-4.51 [facility] Basophil percentageOrdered B y: Luz Elena Mckeon on 04-14-2022 Basophils/100 WBC (Bld) 0.3 % 0-1 [facility] Chloride [Moles/Vol] 106 mmol/L 98-107 [facility] Eosinophils/100 WBC (Bld) 1.5 % 0-5 [facility] Glucose [Mass/Vol] 211 mg/dL 74-106 [facility] Comment on above: Glucose result great er than or equal to 200 mg/dLsuggests DIABETES MELLITUS per A.D.A. criteria. Neutrophils (Bld) [#/Vol] 3.8 10*3/uL 2.0-7.7 [facility] Neutrophils/100 WBC (Bld) 61.3 % 47-70 [facility] Potassium [Moles/Vol] 4.4 mmol/L 3.5-5.1 [facility] Sodium [Moles/Vol] 136 mmol/L 136-145 [facility] WBC (Bld) [#/Vol] 6.2 10*3/uL 4.4-11.0 [facility] Blood erythrocytes count (nu mber/volume)Ordered By: Luz Elena Mckeon on 04-14-2022 RBC (Bld) [#/Vol] 4.87 10*6/uL 4.6-6.[address] [facility] Blood hemoglobin measurement (mass/volume)Ordered By: Luz Elena Mckeon on 04-14-2022 Hemoglobin (Bld) [Mass/Vol] 14.1 g/dL 13.0-16.5 [facility] Blood lymphocytes/100 leukoc ytesOrdered By: Luz Elena Mckeon on 04-14-2022 Lymphocytes/100 WBC (Bld) 25.8 % 19-41 [facility] Blood monocytes/100 leukocyt esOrdered By: Luz Elena Mckeon on 04-14-2022 Monocytes/100 WBC (Bld) 10.8 % 0-10 [facility] Blood platelet mean volumeOr dered By: Luz Elena Mckeon on 04-14-2022 Platelet mean volume (Bld) [Entitic vol] 12.8 fL 6.2-12.0 [facility] Determination of erythrocyte mean corpuscular volume (MCV)Ordered By: Luz Elena Mckeon on 04-14-2022 MCV (RBC) [Entitic vol] 88.1 fL 80-94 [facility] Hematocrit Auto (Bld) [Volum e fraction]Ordered By: Luz Elena Mckeon on 04-14-2022 Hematocrit (Bld) [Volume fraction] 42.9 % 40-54 [facility] Laboratory - Chemistry and C hemistry - challengeOrdered By: Luz Elena Mckeon on 04-14-2022 CO2 [Moles/Vol] 25.0 mmol/L 21.0-32.0 [facility] Natriuretic peptide B (Bld) [Mass/Vol] 54.2 pg/mL 0-100 [facility] Urea nitrogen/Creatinine [Mass ratio] 13.3 mg/mg 10-20 [facility] Laboratory - Hematology and Cell countsOrdered By: Luz Elena Mckeon on 04-14-2022 Erythrocyte distribution width (RBC) [Entitic vol] 44.7 fL 35.1-43.9 [facility] Erythrocyte distribution width (RBC) [Ratio] 13.9 % 11.6-14.6 [facility] Immature granulocytes/100 WBC (Bld) 0.300 % 0.0-0.9 [facility] Comment on above: IG% - Immature Granu locytes (promyelocytes, myelocytes and metamyelocytes) > 1% indicates that a LEFT SHIFT is Present. MCH (RBC) [Entitic mass] 29.0 pg 27.0-32.0 [facility] Nucleated RBC/100 WBC (Bld) [Ratio] 0 % 0-5 [facility] MCHC Auto (RBC) [Mass/Vol]Or dered By: Luz Elena Mckeon on 04-14-2022 MCHC (RBC) [Mass/Vol] 32.9 g/dL 32-36 [facility] No Panel InformationOrdered By: Luz Elena Mckeon on 04-14-2022 Estimated GFR (MDRD) Amer 81 mL/min >60 [facility] Comment on above: GFR Calc Estimated GFR (MDRD) Non-Af Amer 67 mL/min >60 [facility] Comment on above: Non- GFR Calc Platelets bldOrdered By: Loco Mckeon on 04-14-2022 Platelets (Bld) [#/Vol] 150 10*3/uL 150-450 [facility] Serum or plasma calcium francine urement (mass/volume)Ordered By: Luz Elena Mckeon on 04-14-2022 Calcium [Mass/Vol] 8.4 mg/dL 8.5-10.1 [facility] Serum or plasma creatinine m easurement (mass/volume)Ordered By: Luz Elena Mckeon on 04-14-2022 Creatinine [Mass/Vol] 1.13 mg/dL 0.70-1.30 [facility] Comment on above: The validity of the calculated GFR & GFRAA in patients over 70 years has not been determined. Clinical correlation is essential. Serum or plasma urea nitroge n measurement (mass/volume)Ordered By: Luz Elena Mckeon on 04-14-2022 Urea nitrogen [Mass/Vol] 15 mg/dL 7-18 [facility] Thin prep Papanicolaou smear with manual screeningOrdered By: Luz Elena Mckeon on 04-14-2022 Thin prep Papanicolaou smear with manual screening 5 5-15 [facility] Laboratory - Microbiology an d Antimicrobial susceptibilityon 03-27-2022 SARS-CoV-2 (COVID-19) RNA REAGAN+probe Ql (Unsp spec) Detected [facility] No Panel Informationon 03-27 Influenza Types A,B Rapid (Clinic) Not detected [facility] Absolute lymphocyte counton 11-21-2021 Lymphocytes Auto (Unsp spec) [#/Vol] 1.23 10*3/uL 0.83-4.51 [facility] Work Phone: Basophil percentageon 2021 Basophils/100 WBC (Bld) 0.3 % 0-1 [facility] Work Phone: Chloride [Moles/Vol] 106 mmol/L 98-107 [facility] Work Phone: Eosinophils/100 WBC (Bld) 1.2 % 0-5 [facility] Work Phone: Glucose [Mass/Vol] 166 mg/dL 74-106 [facility] Work Phone: Comment on above: Fasting Glucose resu lt greater than or equal to 126 mg/dL suggests DIABETES MELLITUS per A.D.A. criteria. Neutrophils (Bld) [#/Vol] 4.7 10*3/uL 2.0-7.7 [facility] Work Phone: Neutrophils/100 WBC (Bld) 69.8 % 47-70 [facility] Work Phone: Potassium [Moles/Vol] 4.2 mmol/L 3.5-5.1 [facility] Work Phone: Sodium [Moles/Vol] 140 mmol/L 136-145 [facility] Work Phone: [phone] WBC (Bld) [#/Vol] 6.7 10*3/uL 4.4-11.0 [facility] Work Phone: Blood erythrocytes count (nu mber/volume)on 11-21-2021 RBC (Bld) [#/Vol] 5.06 10*6/uL 4.6-6.2 [facility]: Blood hemoglobin measurement (mass/volume)on 11-21-2021 Hemoglobin (Bld) [Mass/Vol] 14.3 g/dL 13.0-16.5 [facility] Work Phone: Blood lymphocytes/100 leukoc yteson 11-21-2021 Lymphocytes/100 WBC (Bld) 18.4 % 19-41 [facility] Work Phone: Blood monocytes/100 leukocyt eson 11-21-2021 Monocytes/100 WBC (Bld) 9.9 % 0-10 [facility] Work Phone: Blood platelet mean volumeon 11-21-2021 Platelet mean volume (Bld) [Entitic vol] 12.4 fL 6.2-12.0 [facility] Work Phone: Determination of erythrocyte mean corpuscular volume (MCV)on 11-21-2021 MCV (RBC) [Entitic vol] 89.1 fL 80-94 [facility] Work Phone: Hematocrit Auto (Bld) [Volum e fraction]on 11-21-2021 Hematocrit (Bld) [Volume fraction] 45.1 % 40-54 [facility] Work Phone: Laboratory - Chemistry and C hemistry - challengeon 11-21-2021 CO2 [Moles/Vol] 27.0 mmol/L 21.0-32.0 [facility] Work Phone: Natriuretic peptide B (Bld) [Mass/Vol] 60.9 pg/mL 0-100 [facility] Work Phone: [phone] Urea nitrogen/Creatinine [Mass ratio] 12.9 mg/mg 10-20 [facility] Work Phone: Laboratory - Hematology and Cell countson 11-21-2021 Erythrocyte distribution width (RBC) [Entitic vol] 45.1 fL 35.1-43.9 [facility] Work Phone: Erythrocyte distribution width (RBC) [Ratio] 14.0 % 11.6-14.6 [facility] Work Phone: Immature granulocytes/100 WBC (Bld) 0.400 % 0.0-0.9 [facility] Work Phone: Comment on above: IG% - Immature Granu locytes (promyelocytes, myelocytes and metamyelocytes) > 1% indicates that a LEFT SHIFT is Present. MCH (RBC) [Entitic mass] 28.3 pg 27.0-32.0 [facility] Work Phone: Nucleated RBC/100 WBC (Bld) [Ratio] 0 % 0-5 [facility] Work Phone: MCHC Auto (RBC) [Mass/Vol]on 11-21-2021 MCHC (RBC) [Mass/Vol] 31.7 g/dL 32-36 [facility] Work Phone: No Panel Informationon 11-21 Estimated GFR (MDRD) Amer 63 mL/min >60 [facility] Work Phone: Comment on above: GFR Calc Estimated GFR (MDRD) Non-Af Amer 52 mL/min >60 [facility] Work Phone: Comment on above: Non- GFR Calc Platelets bldon 11-21-2021 Platelets (Bld) [#/Vol] 135 10*3/uL 150-450 [facility] Work Phone: [phone] Serum or plasma calcium francine urement (mass/volume)on 11-21-2021 Calcium [Mass/Vol] 8.9 mg/dL 8.5-10.1 [facility] Work Phone: Serum or plasma creatinine m easurement (mass/volume)on 11-21-2021 Creatinine [Mass/Vol] 1.40 mg/dL 0.70-1.30 [facility] Work Phone: Comment on above: The validity of the calculated GFR & GFRAA in patients over 70 years has not been determined. Clinical correlation is essential. Serum or plasma urea nitroge n measurement (mass/volume)on 11-21-2021 Urea nitrogen [Mass/Vol] 18 mg/dL 7-18 [facility] Work Phone: Thin prep Papanicolaou smear with manual screeningon 11-21-2021 Thin prep Papanicolaou smear with manual screening 7 5-15 [facility] Work Phone: Absolute lymphocyte counton 11-16-2021 Lymphocytes Auto (Unsp spec) [#/Vol] 2.06 10*3/uL 0.83-4.51 [facility] Work Phone: Basophil percentageon 2021 Basophils/100 WBC (Bld) 0.3 % 0-1 [facility] Work Phone: Chloride [Moles/Vol] 104 mmol/L 98-107 [facility] Work Phone: Eosinophils/100 WBC (Bld) 1.4 % 0-5 [facility] Work Phone: Glucose [Mass/Vol] 170 mg/dL 74-106 [facility] Work Phone: Comment on above: Fasting Glucose resu lt greater than or equal to 126 mg/dL suggests DIABETES MELLITUS per A.D.A. criteria. Neutrophils (Bld) [#/Vol] 5.0 10*3/uL 2.0-7.7 [facility] Work Phone: Neutrophils/100 WBC (Bld) 62.3 % 47-70 [facility] Work Phone: Potassium [Moles/Vol] 4.4 mmol/L 3.5-5.1 [facility] Work Phone: [phone] Comment on above: Slight Hemolysis, Re sult may be falsely increased. Sodium [Moles/Vol] 137 mmol/L 136-145 [facility] Work Phone: WBC (Bld) [#/Vol] 7.9 10*3/uL 4.4-11.0 [facility] Work Phone: Blood erythrocytes count (nu mber/volume)on 11-16-2021 RBC (Bld) [#/Vol] 5.42 10*6/uL 4.6-6.[address] [facility] Work Phone: Blood hemoglobin measurement (mass/volume)on 11-16-2021 Hemoglobin (Bld) [Mass/Vol] 15.6 g/dL 13.0-16.5 [facility] Work Phone: Blood lymphocytes/100 leukoc yteson 11-16-2021 Lymphocytes/100 WBC (Bld) 26.0 % 19-41 [facility] Work Phone: Blood monocytes/100 leukocyt eson 11-16-2021 Monocytes/100 WBC (Bld) 9.6 % 0-10 [facility] Work Phone: [phone] Blood platelet mean volumeon 11-16-2021 Platelet mean volume (Bld) [Entitic vol] 12.9 fL 6.2-12.0 [facility] Work Phone: Determination of erythrocyte mean corpuscular volume (MCV)on 11-16-2021 MCV (RBC) [Entitic vol] 89.3 fL 80-94 [facility] Work Phone: Hematocrit Auto (Bld) [Volum e fraction]on 11-16-2021 Hematocrit (Bld) [Volume fraction] 48.4 % 40-54 [facility] Work Phone: [phone] Laboratory - Chemistry and C hemistry - challengeon 11-16-2021 CO2 [Moles/Vol] 27.0 mmol/L 21.0-32.0 [facility] Work Phone: Urea nitrogen/Creatinine [Mass ratio] 11.6 mg/mg 10-20 [facility] Work Phone: Laboratory - Hematology and Cell countson 11-16-2021 Erythrocyte distribution width (RBC) [Entitic vol] 44.5 fL 35.1-43.9 [facility] Work Phone: Erythrocyte distribution width (RBC) [Ratio] 13.8 % 11.6-14.6 [facility] Work Phone: Immature granulocytes/100 WBC (Bld) 0.400 % 0.0-0.9 [facility] Work Phone: Comment on above: IG% - Immature Granu locytes (promyelocytes, myelocytes and metamyelocytes) > 1% indicates that a LEFT SHIFT is Present. MCH (RBC) [Entitic mass] 28.8 pg 27.0-32.0 [facility] Work Phone: Nucleated RBC/100 WBC (Bld) [Ratio] 0 % 0-5 [facility] Work Phone: MCHC Auto (RBC) [Mass/Vol]on 11-16-2021 MCHC (RBC) [Mass/Vol] 32.2 g/dL 32-36 [facility] Work Phone: No Panel Informationon 11-16 Troponin I High Sensitivity 7 pg/mL 3.0-78.0 [facility] Work Phone: Comment on above: Please Note: [place] t Units and Gender Specific Reference Ranges. For more information see Policy Stat Procedure [place] High Sensitivity Troponin (TNIH) and attachments. Estimated Creatinine Clearance Calc 45.54 ml/min [facility] Work Phone: Estimated GFR (MDRD) Amer 64 mL/min >60 [facility] Work Phone: Comment on above: GFR Calc Estimated GFR (MDRD) Non-Af Amer 53 mL/min >60 [facility] Work Phone: Comment on above: Non- GFR Calc Platelets bldon 11-16-2021 Platelets (Bld) [#/Vol] 142 10*3/uL 150-450 [facility] Work Phone: Serum or plasma calcium francine urement (mass/volume)on 11-16-2021 Calcium [Mass/Vol] 9.2 mg/dL 8.5-10.1 [facility] Work Phone: Serum or plasma creatinine m easurement (mass/volume)on 11-16-2021 Creatinine [Mass/Vol] 1.38 mg/dL 0.70-1.30 [facility] Work Phone: Comment on above: The validity of the calculated GFR & GFRAA in patients over 70 years has not been determined. Clinical correlation is essential. Serum or plasma urea nitroge n measurement (mass/volume)on 11-16-2021 Urea nitrogen [Mass/Vol] 16 mg/dL 7-18 [facility] Work Phone: Thin prep Papanicolaou smear with manual screeningon 11-16-2021 Thin prep Papanicolaou smear with manual screening 6 5-15 [facility] Work Phone: Basophil percentageon 2021 Chloride [Moles/Vol] 105 mmol/L 98-107 [facility] Work Phone: Glucose [Mass/Vol] 246 mg/dL 74-106 [facility] Work Phone: Comment on above: Glucose result great er than or equal to 200 mg/dLsuggests DIABETES MELLITUS per A.D.A. criteria. Potassium [Moles/Vol] 4.2 mmol/L 3.5-5.1 [facility] Work Phone: Sodium [Moles/Vol] 137 mmol/L 136-145 [facility] Work Phone: Laboratory - Chemistry and C hemistry - challengeon 10-28-2021 CO2 [Moles/Vol] 24.0 mmol/L 21.0-32.0 [facility] Work Phone: Urea nitrogen/Creatinine [Mass ratio] 15.6 mg/mg 10-20 [facility] Work Phone: No Panel Informationon 10-28 Estimated GFR (MDRD) Amer 74 mL/min >60 [facility] Work Phone: Comment on above: GFR Calc Estimated GFR (MDRD) Non-Af Amer 61 mL/min >60 [facility] Work Phone: Comment on above: Non- GFR Calc Serum or plasma calcium francine urement (mass/volume)on 10-28-2021 Calcium [Mass/Vol] 8.9 mg/dL 8.5-10.1 [facility] Work Phone: Serum or plasma creatinine m easurement (mass/volume)on 10-28-2021 Creatinine [Mass/Vol] 1.22 mg/dL 0.70-1.30 [facility] Work Phone: Comment on above: The validity of the calculated GFR & GFRAA in patients over 70 years has not been determined. Clinical correlation is essential. Serum or plasma urea nitroge n measurement (mass/volume)on 10-28-2021 Urea nitrogen [Mass/Vol] 19 mg/dL 7-18 [facility] Work Phone: Thin prep Papanicolaou smear with manual screeningon 10-28-2021 Thin prep Papanicolaou smear with manual screening 8 5-15 [facility] Work Phone: Whole blood hemoglobin A1c/t otal hemoglobin ratio (mass fraction)on 10-28-2021 HbA1c (Bld) [Mass fraction] 7.7 % 3.8-5.6 [facility] Work Phone: Comment on above: Normal < 5.7 % Predi abetic 5.7 - 6.4 % Diabetic >or= 6.5 % Please note range changes. Absolute lymphocyte counton 09-16-2021 Lymphocytes Auto (Unsp spec) [#/Vol] 1.24 10*3/uL 0.83-4.51 [facility] Work Phone: Basophil percentageon 2021 Basophils/100 WBC (Bld) 0.5 % 0-1 [facility] Work Phone: Chloride [Moles/Vol] 107 mmol/L 98-107 [facility] Work Phone: Eosinophils/100 WBC (Bld) 1.7 % 0-5 [facility] Work Phone: Glucose [Mass/Vol] 134 mg/dL 74-106 [facility] Work Phone: Comment on above: Fasting Glucose resu lt greater than or equal to 126 mg/dL suggests DIABETES MELLITUS per A.D.A. criteria. Neutrophils (Bld) [#/Vol] 4.4 10*3/uL 2.0-7.7 [facility] Work Phone: Neutrophils/100 WBC (Bld) 68.0 % 47-70 [facility] Work Phone: Potassium [Moles/Vol] 4.3 mmol/L 3.5-5.1 [facility] Work Phone: [phone] Sodium [Moles/Vol] 139 mmol/L 136-145 [facility] Work Phone: [phone] WBC (Bld) [#/Vol] 6.4 10*3/uL 4.4-11.0 [facility] Work Phone: [phone] Blood erythrocytes count (nu mber/volume)on 09-16-2021 RBC (Bld) [#/Vol] 4.84 10*6/uL 4.6-6.[address] [facility] Work Phone: Blood hemoglobin measurement (mass/volume)on 09-16-2021 Hemoglobin (Bld) [Mass/Vol] 14.1 g/dL 13.0-16.5 [facility] Work Phone: Blood lymphocytes/100 leukoc yteson 09-16-2021 Lymphocytes/100 WBC (Bld) 19.3 % 19-41 [facility] Work Phone: Blood monocytes/100 leukocyt eson 09-16-2021 Monocytes/100 WBC (Bld) 10.0 % 0-10 [facility] Work Phone: Blood platelet mean volumeon 09-16-2021 Platelet mean volume (Bld) [Entitic vol] 12.7 fL 6.2-12.0 [facility] Work Phone: Determination of erythrocyte mean corpuscular volume (MCV)on 09-16-2021 MCV (RBC) [Entitic vol] 90.1 fL 80-94 [facility] Work Phone: Hematocrit Auto (Bld) [Volum e fraction]on 09-16-2021 Hematocrit (Bld) [Volume fraction] 43.6 % 40-54 [facility] Work Phone: Laboratory - Chemistry and C hemistry - challengeon 09-16-2021 CO2 [Moles/Vol] 27.0 mmol/L 21.0-32.0 [facility] Work Phone: Natriuretic peptide B (Bld) [Mass/Vol] 80.9 pg/mL 0-100 [facility] Work Phone: Urea nitrogen/Creatinine [Mass ratio] 13.7 mg/mg 10-20 [facility] Work Phone: Laboratory - Hematology and Cell countson 09-16-2021 Erythrocyte distribution width (RBC) [Entitic vol] 46.2 fL 35.1-43.9 [facility] Work Phone: Erythrocyte distribution width (RBC) [Ratio] 13.9 % 11.6-14.6 [facility] Work Phone: Immature granulocytes/100 WBC (Bld) 0.500 % 0.0-0.9 [facility] Work Phone: Comment on above: IG% - Immature Granu locytes (promyelocytes, myelocytes and metamyelocytes) > 1% indicates that a LEFT SHIFT is Present. MCH (RBC) [Entitic mass] 29.1 pg 27.0-32.0 [facility] Work Phone: Nucleated RBC/100 WBC (Bld) [Ratio] 0 % 0-5 [facility] Work Phone: MCHC Auto (RBC) [Mass/Vol]on 09-16-2021 MCHC (RBC) [Mass/Vol] 32.3 g/dL 32-36 [facility] Work Phone: No Panel Informationon 09-16 Estimated GFR (MDRD) Amer 73 mL/min >60 [facility] Work Phone: Comment on above: GFR Calc Estimated GFR (MDRD) Non-Af Amer 60 mL/min >60 [facility] Work Phone: Comment on above: Non- GFR Calc Platelets bldon 09-16-2021 Platelets (Bld) [#/Vol] 133 10*3/uL 150-450 [facility] Work Phone: Serum or plasma calcium francine urement (mass/volume)on 09-16-2021 Calcium [Mass/Vol] 9.0 mg/dL 8.5-10.1 [facility] Work Phone: Serum or plasma creatinine m easurement (mass/volume)on 09-16-2021 Creatinine [Mass/Vol] 1.24 mg/dL 0.70-1.30 [facility] Work Phone: Comment on above: The validity of the calculated GFR & GFRAA in patients over 70 years has not been determined. Clinical correlation is essential. Serum or plasma urea nitroge n measurement (mass/volume)on 09-16-2021 Urea nitrogen [Mass/Vol] 17 mg/dL 7-18 [facility] Work Phone: Thin prep Papanicolaou smear with manual screeningon 09-16-2021 Thin prep Papanicolaou smear with manual screening 5 5-15 [facility] Work Phone: Absolute lymphocyte counton 06-10-2021 Lymphocytes Auto (Unsp spec) [#/Vol] 1.00 10*3/uL 0.83-4.51 [facility] Work Phone: Basophil percentageon 2021 Basophils/100 WBC (Bld) 0.3 % 0-1 [facility] Work Phone: Chloride [Moles/Vol] 107 mmol/L 98-107 [facility] Work Phone: Eosinophils/100 WBC (Bld) 1.7 % 0-5 [facility] Work Phone: Glucose [Mass/Vol] 150 mg/dL 74-106 [facility] Work Phone: [phone] Comment on above: Fasting Glucose resu lt greater than or equal to 126 mg/dL suggests DIABETES MELLITUS per A.D.A. criteria. Neutrophils (Bld) [#/Vol] 4.9 10*3/uL 2.0-7.7 [facility] Work Phone: Neutrophils/100 WBC (Bld) 73.8 % 47-70 [facility] Work Phone: Potassium [Moles/Vol] 5.6 mmol/L 3.5-5.1 [facility] Work Phone: Comment on above: Moderate Hemolysis, Result may be falsely increased. Sodium [Moles/Vol] 139 mmol/L 136-145 [facility] Work Phone: WBC (Bld) [#/Vol] 6.7 10*3/uL 4.4-11.0 [facility] Work Phone: Blood erythrocytes count (nu mber/volume)on 06-10-2021 RBC (Bld) [#/Vol] 5.17 10*6/uL 4.6-6.[address] [facility] Work Phone: [phone] Blood hemoglobin measurement (mass/volume)on 06-10-2021 Hemoglobin (Bld) [Mass/Vol] 15.5 g/dL 13.0-16.5 [facility] Work Phone: Blood lymphocytes/100 leukoc yteson 06-10-2021 Lymphocytes/100 WBC (Bld) 15.0 % 19-41 [facility] Work Phone: Blood monocytes/100 leukocyt eson 06-10-2021 Monocytes/100 WBC (Bld) 8.7 % 0-10 [facility] Work Phone: Blood platelet mean volumeon 06-10-2021 Platelet mean volume (Bld) [Entitic vol] 12.7 fL 6.2-12.0 [facility] Work Phone: Determination of erythrocyte mean corpuscular volume (MCV)on 06-10-2021 MCV (RBC) [Entitic vol] 89.6 fL 80-94 [facility] Work Phone: Hematocrit Auto (Bld) [Volum e fraction]on 06-10-2021 Hematocrit (Bld) [Volume fraction] 46.3 % 40-54 [facility] Work Phone: Laboratory - Chemistry and C hemistry - challengeon 06-10-2021 CO2 [Moles/Vol] 28.0 mmol/L 21.0-32.0 [facility] Work Phone: Urea nitrogen/Creatinine [Mass ratio] 12.7 mg/mg 10-20 [facility] Work Phone: Laboratory - Hematology and Cell countson 06-10-2021 Erythrocyte distribution width (RBC) [Entitic vol] 45.9 fL 35.1-43.9 [facility] Work Phone: Erythrocyte distribution width (RBC) [Ratio] 14.1 % 11.6-14.6 [facility] Work Phone: Immature granulocytes/100 WBC (Bld) 0.500 % 0.0-0.9 [facility] Work Phone: Comment on above: IG% - Immature Granu locytes (promyelocytes, myelocytes and metamyelocytes) > 1% indicates that a LEFT SHIFT is Present. MCH (RBC) [Entitic mass] 30.0 pg 27.0-32.0 [facility] Work Phone: Nucleated RBC/100 WBC (Bld) [Ratio] 0 % 0-5 [facility] Work Phone: MCHC Auto (RBC) [Mass/Vol]on 06-10-2021 MCHC (RBC) [Mass/Vol] 33.5 g/dL 32-36 [facility] Work Phone: No Panel Informationon 06-10 Troponin I High Sensitivity 10 pg/mL 3.0-78.0 [facility] Work Phone: Comment on above: Please Note: [place] t Units and Gender Specific Reference Ranges. For more information see Policy Stat Procedure [place] High Sensitivity Troponin (TNIH) and attachments. Estimated Creatinine Clearance Calc 47.63 ml/min [facility] Work Phone: Estimated GFR (MDRD) Amer 67 mL/min >60 [facility] Work Phone: Comment on above: GFR Calc Estimated GFR (MDRD) Non-Af Amer 55 mL/min >60 [facility] Work Phone: Comment on above: Non- GFR Calc Platelets bldon 06-10-2021 Platelets (Bld) [#/Vol] 146 10*3/uL 150-450 [facility] Work Phone: Serum or plasma calcium francine urement (mass/volume)on 06-10-2021 Calcium [Mass/Vol] 8.7 mg/dL 8.5-10.1 [facility] Work Phone: Serum or plasma creatinine m easurement (mass/volume)on 06-10-2021 Creatinine [Mass/Vol] 1.34 mg/dL 0.70-1.30 [facility] Work Phone: Comment on above: The validity of the calculated GFR & GFRAA in patients over 70 years has not been determined. Clinical correlation is essential. Serum or plasma urea nitroge n measurement (mass/volume)on 06-10-2021 Urea nitrogen [Mass/Vol] 17 mg/dL 7-18 [facility] Work Phone: Thin prep Papanicolaou smear with manual screeningon 06-10-2021 Thin prep Papanicolaou smear with manual screening 4 5-15 [facility] Work Phone: Absolute lymphocyte counton 05-19-2021 Lymphocytes Auto (Unsp spec) [#/Vol] 1.72 10*3/uL 0.83-4.51 [facility] Work Phone: Basophil percentageon 2021 Basophils/100 WBC (Bld) 0.4 % 0-1 [facility] Work Phone: Bilirubin [Mass/Vol] 1.20 mg/dL 0.20-1.00 [facility] Work Phone: Comment on above: For patients on eltr ombopag therapy, use of Dimension [place] TBIL is not recommended. Chloride [Moles/Vol] 106 mmol/L 98-107 [facility] Work Phone: [phone] Eosinophils/100 WBC (Bld) 1.2 % 0-5 [facility] Work Phone: Glucose [Mass/Vol] 182 mg/dL 74-106 [facility] Work Phone: Comment on above: Fasting Glucose resu lt greater than or equal to 126 mg/dL suggests DIABETES MELLITUS per A.D.A. criteria. Neutrophils (Bld) [#/Vol] 6.6 10*3/uL 2.0-7.7 [facility] Work Phone: Neutrophils/100 WBC (Bld) 70.5 % 47-70 [facility] Work Phone: Potassium [Moles/Vol] 3.8 mmol/L 3.5-5.1 [facility] Work Phone: Protein [Mass/Vol] 7.9 g/dL 6.4-8.2 [facility] Work Phone: [phone] Sodium [Moles/Vol] 139 mmol/L 136-145 [facility] Work Phone: WBC (Bld) [#/Vol] 9.4 10*3/uL 4.4-11.0 [facility] Work Phone: Basophil percentage 0 SEEN /hpf [facility] Work Phone: Bilirubin Test strip Ql (U)o n 05-19-2021 Bilirubin Ql (U) Negative Negative [facility] Work Phone: Blood erythrocytes count (nu mber/volume)on 05-19-2021 RBC (Bld) [#/Vol] 5.30 10*6/uL 4.6-6.[address] [facility] Work Phone: Blood hemoglobin measurement (mass/volume)on 05-19-2021 Hemoglobin (Bld) [Mass/Vol] 15.3 g/dL 13.0-16.5 [facility] Work Phone: Blood lymphocytes/100 leukoc yteson 05-19-2021 Lymphocytes/100 WBC (Bld) 18.3 % 19-41 [facility] Work Phone: Blood monocytes/100 leukocyt eson 05-19-2021 Monocytes/100 WBC (Bld) 9.3 % 0-10 [facility] Work Phone: Blood platelet mean volumeon 05-19-2021 Platelet mean volume (Bld) [Entitic vol] 12.5 fL 6.2-12.0 [facility] Work Phone: Determination of erythrocyte mean corpuscular volume (MCV)on 05-19-2021 MCV (RBC) [Entitic vol] 89.8 fL 80-94 [facility] Work Phone: Hematocrit Auto (Bld) [Volum e fraction]on 05-19-2021 Hematocrit (Bld) [Volume fraction] 47.6 % 40-54 [facility] Work Phone: Ketones Test strip Ql (U)on 05-19-2021 Ketones Ql (U) Negative Negative [facility] Work Phone: Laboratory - Chemistry and C hemistry - challengeon 05-19-2021 ALP [Catalytic activity/Vol] 156 U/L 45-117 [facility] Work Phone: ALT [Catalytic activity/Vol] 44 U/L 16-61 [facility] Work Phone: CO2 [Moles/Vol] 26.0 mmol/L 21.0-32.0 [facility] Work Phone: Globulin (S) [Mass/Vol] 4.2 g/dL 2.2-4.2 [facility] Work Phone: Lipase [Catalytic activity/Vol] 199 U/L 73-393 [facility] Work Phone: Urea nitrogen/Creatinine [Mass ratio] 13.8 mg/mg 10-20 [facility] Work Phone: Laboratory - Hematology and Cell countson 05-19-2021 Erythrocyte distribution width (RBC) [Entitic vol] 46.7 fL 35.1-43.9 [facility] Work Phone: Erythrocyte distribution width (RBC) [Ratio] 14.3 % 11.6-14.6 [facility] Work Phone: Immature granulocytes/100 WBC (Bld) 0.300 % 0.0-0.9 [facility] Work Phone: Comment on above: IG% - Immature Granu locytes (promyelocytes, myelocytes and metamyelocytes) > 1% indicates that a LEFT SHIFT is Present. MCH (RBC) [Entitic mass] 28.9 pg 27.0-32.0 [facility] Work Phone: Nucleated RBC/100 WBC (Bld) [Ratio] 0 % 0-5 [facility] Work Phone: MCHC Auto (RBC) [Mass/Vol]on 05-19-2021 MCHC (RBC) [Mass/Vol] 32.1 g/dL 32-36 [facility] Work Phone: Mucus LM Ql (Urine sed)on Mucus Ql (Urine sed) 0 SEEN /hpf [facility] Work Phone: Nitrite Test strip Ql (U)on 05-19-2021 Nitrite Ql (U) Negative Negative [facility] Work Phone: No Panel Informationon 05-19 Estimated Creatinine Clearance Calc 46.25 ml/min [facility] Work Phone: Estimated GFR (MDRD) Amer 65 mL/min >60 [facility] Work Phone: Comment on above: GFR Calc Estimated GFR (MDRD) Non-Af Amer 53 mL/min >60 [facility] Work Phone: Comment on above: Non- GFR Calc Platelets bldon 05-19-2021 Platelets (Bld) [#/Vol] 158 10*3/uL 150-450 [facility] Work Phone: Protein Test strip Ql (U)on 05-19-2021 Protein Ql (U) Negative Negative [facility] Work Phone: Serum or plasma albumin franicne urement (mass/volume)on 05-19-2021 Albumin [Mass/Vol] 3.7 g/dL 3.2-5.0 [facility] Work Phone: Serum or plasma albumin/glob ulin mass ratioon 05-19-2021 Albumin/Globulin [Mass ratio] 0.9 {ratio} 0.9-2.4 [facility] Work Phone: Serum or plasma calcium francine urement (mass/volume)on 05-19-2021 Calcium [Mass/Vol] 9.2 mg/dL 8.5-10.1 [facility] Work Phone: Serum or plasma creatinine m easurement (mass/volume)on 05-19-2021 Creatinine [Mass/Vol] 1.38 mg/dL 0.70-1.30 [facility] Work Phone: Comment on above: The validity of the calculated GFR & GFRAA in patients over 70 years has not been determined. Clinical correlation is essential. Serum or plasma urea nitroge n measurement (mass/volume)on 05-19-2021 Urea nitrogen [Mass/Vol] 19 mg/dL 7-18 [facility] Work Phone: Squamous epithelial cells de tection in urine sediment by light microscopyon 05-19-2021 Epithelial cells.squamous LM Ql (Urine sed) 0 SEEN /hpf [facility] Work Phone: Thin prep Papanicolaou smear with manual screeningon 05-19-2021 Thin prep Papanicolaou smear with manual screening 25 U/L 15-37 [facility] Work Phone: Thin prep Papanicolaou smear with manual screening 7 5-15 [facility] Work Phone: Urine blood detectionon 05-03 RBC Ql (U) Negative Negative [facility] Work Phone: RBC Ql (U) 0 SEEN /hpf [facility] Work Phone: Urine clarityon 05-19-2021 Clarity (U) Clear Clear [facility] Work Phone: Urine color determinationon 05-19-2021 Color (U) Straw Yellow [facility] Work Phone: Urine glucose detectionon Glucose Ql (U) Normal mg/dl Normal [facility] Work Phone: Urine leukocyte esterase det ection by dipstickon 05-19-2021 Leukocyte esterase Test strip Ql (U) Negative Negative [facility] Work Phone: Urine pHon 05-19-2021 pH (U) 5.0 [pH] [facility] Work Phone: Urine sediment bacteria coun t by microscopy (number/high power field)on 05-19-2021 Bacteria LM.HPF (Urine sed) [#/Area] 0 /[HPF] None Seen [facility] Work Phone: Urine specific gravity measu rementon 05-19-2021 Specific gravity (U) [Rel density] 1.010 [facility] Work Phone: Urobilinogen Auto test strip Ql (U)on 05-19-2021 Urobilinogen Ql (U) Normal mg/dl Normal [facility] Work Phone: CT ANGIOGRAM AORTA CHEST ABD [...] descending thoracic aorta is tortuous within its [id number] course but is not aneurysmal. The abdominal [...] particularly at L4-L5 and L5-S1. IMAGING FACILITY: [facility]. SB/tde Workstation ID: [id number] Dictated by: YAS IYER on WedFeb 26, 2021 1:26:53 PM EDT Transcribed by: KEIKO CORLEY on WedFeb 26, 2021 1:43:47 PM EDT Finalized by: YAS IYER on WedFeb 27, 2021 7:40:59 AM EDT Normal [facility] Comment on above: Order Comment: Injur y/Trauma or Illness?:Illness/Other How long have you had these symptoms (acute/chronic)?:Acute Reason for exam?:Coronary artery disease involving [place] coronary artery of [place] heart with angina pectoris, recent heart cath Type of Exam?:Subsequent/Follow-up Additional signs and symptoms?: LEFT HEART CATH POSSIBLE PTC A/STENTon 01-10-2021 LEFT HEART CATH POSSIBLE PTCA/STENT Patient Name: ERIBERTO RICO Date of : 1945 Procedure Date: 01/10/2021 Cath #: [id number] Physician(s): Eladio Ingram MD Ref. Physician: PROCEDURE(S) PERFORMED: Clinical History: Prior smoker, quit date: Diabetes Mellitus: Yes Hypertension: Yes Dyslipidemia: Yes Prior ND: Yes Other: Stroke Prior PCI: Yes 2016 [...] right femoral artery - 6F. 10 cm [place] Catheters were advanced using standard guide wire [...] Equipment: Sheath(s) [employer] 4F MICROPUNCTURE KIT [employer]Jam 6F 10CM [place] SHEATH Wire(s) [employer] J WIRE FIXED MERIT .035 X 150CM GUIDEWIRE Catheter(s) MARIA T AND Continuent JR4 DIAG CATH 6F MARIA T AND Continuent JR4 DIAG CATH 6F MARIA T AND [employer]uent PIGTAIL STRAIGHT DIAG CATH 6F See Nursing Notes for further details Signed By Eladio Ingram MD On 01/10/2021 11:05:05 Eladio Ingram MD _ _ [facility] ECHOCARDIOGRAM 2D COMPLETEOr dered By: Eladio Ingram on 10-15-2020 Aortic valve area 2.08108 cm [facility] AV mean gradient 6 mmHg [facility] EF 62.7797 % [facility] Patient Info Name: Morro RICO Age: 75 years : 1945 Gender: Male Ht: 175 cm Wt: 106 kg BSA: 2.31 m2 HR: 50 bpm BP: 134 / 72 mmHg Heart Rhythm: Bradycardia, Sinus Rhythm Technical Quality: Fair, Technically difficult Exam Date: 10/15/2020 12:57 PM Patient Status: Outpatient Floor Covering Installer: Tracy Bonilla, DRU, RVT Exam Type: ECHOCARDIOGRAM COMPLETE W CONTRAST Study Info Indications - Dyspnea Attending Physician: ELADIO INGRAM Referring Physician: ELADIO INGRAM ; [id number] BMI: 34.56 kg/m2 Summary 1. Left ventricular systolic function is normal, with ejection fraction estimated at 60 +/- 5%. 2. The left ventricular diastolic function is normal. 3. 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 4. There is no aortic valve stenosis. History/Risk Factors Hypertension: Yes Dyslipidemia: Yes Diabetic Therapy: Oral Peripheral Arterial Disease (PAD): Yes Myocardial Infarction (ND): Yes Coronary Artery Disease (CAD) Yes Congestive Heart Failure (CHF): Hx CHF Date of Prior ND: 05/03/2008 Diabetes Mellitus: Yes History/Risk Factors sleep [...] Velocity 1.09 m/s (more content not included)... [facility] Interface, Rad In [employer] - 10/15/2020 4:30 PM EDT Patient Info Name: ERIBERTO RICO Age: 75 years : 1945 Gender: Male Ht: 175 cm Wt: 106 kg BSA: 2.31 m2 HR: 50 bpm BP: 134 / 72 mmHg Heart Rhythm: Bradycardia, Sinus Rhythm Technical Quality: Fair, Technically difficult Exam Date: 10/15/2020 12:57 PM Patient Status: Outpatient Floor Covering Installer: Tracy Bonilla, DRU, RVT Exam Type: ECHOCARDIOGRAM COMPLETE W CONTRAST Study Info Indications - Dyspnea Attending Physician: ELADIO INGRAM Referring Physician: ELADIO INGRAM ; [id number] BMI: 34.56 kg/m2 Summary 1. Left ventricular systolic function is normal, with ejection fraction estimated at 60 +/- 5%. 2. The left ventricular diastolic function is normal. 3. 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 4. There is no aortic valve stenosis. History/Risk Factors Hypertension: Yes Dyslipidemia: Yes Diabetic Therapy: Oral Peripheral Arterial Disease (PAD): Yes Myocardial Infarction (ND): Yes Coronary Artery Disease (CAD) Yes Congestive Heart Failure (CHF): Hx CHF Date of Prior ND: 05/03/2008 Diabetes Mellitus: Yes History/Risk Factors sleep [...] mmHg MV VTI 46 cm MV Decel [place] 333 cm/s2 MV PHT 38 ms MV Area (PHT) 5.8 cm2 4.0-5.0 MV Area (Cont Eq VTI) 2.5 cm2 MV Area Index (Cont Eq VTI) 1.06 cm2/m2 MV Di (more content not included)... [facility] ECHOCARDIOGRAM COMPLETE W CO NTRASTon 10-15-2020 ECHOCARDIOGRAM COMPLETE W CONTRAST Patient Info Name: ERIBERTO RICO Age: 75 years : 1945 Gender: Male Ht: 175 cm Wt: 106 kg BSA: 2.31 m2 HR: 50 bpm BP: 134 / 72 mmHg Heart Rhythm: Bradycardia, Sinus Rhythm Technical Quality: Fair, Technically difficult Exam Date: 10/15/2020 12:57 PM Patient Status: Outpatient Floor Covering Installer: Tracy Bonilla, MONICACS, RVT Exam Type: ECHOCARDIOGRAM COMPLETE W CONTRAST Study Info Indications - Dyspnea Attending Physician: ELADIO INGRAM Referring Physician: ELADIO INGRAM ; [id number] BMI: 34.56 kg/m2 Summary 1. Left ventricular systolic function is normal, with ejection fraction estimated at 60 +/- 5%. 2. The left ventricular diastolic function is normal. 3. 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 4. There is no aortic valve stenosis. History/Risk Factors Hypertension: Yes Dyslipidemia: Yes Diabetic Therapy: Oral Peripheral Arterial Disease (PAD): Yes Myocardial Infarction (ND): Yes Coronary Artery Disease (CAD) Yes Congestive Heart Failure (CHF): Hx CHF Date of Prior ND: 05/03/2008 Diabetes Mellitus: Yes History/Risk Factors sleep [...] mmHg MV VTI 46 cm MV [place] 333 cm/s2 MV PHT 38 ms MV Area (PHT) 5.8 cm2 4.0-5.0 MV Area (Cont Eq VTI) 2.5 cm2 MV Area Index (Cont Eq VTI) 1.06 cm2/m2 MV Diastolic Function MV E Peak Velocity 1 m/s MV A Peak Velocity 1 m/s MV E/A 1.2 MV (more content not included)... Normal [facility] Ambulatory ECG 12-LEADOrdered By: Fernanda Acuña on 10-09-2020 Atrial Rate [facility] P [place] [facility] P-R Interval [facility] Q-T Interval [facility] Q-T Interval (corrected) [facility] QRS Duration [facility] QTC Calculation (Bezet) [facility] R [place] [facility] T [place] [facility] Ventricular Rate [facility] Auto Diffon 09-15-2018 Basophils #/vol (Bld) 0.0 E3/mcL Normal 0.0-0.2 [facility] Comment on above: Order Comment: Order Added by Discern Expert. Performed By: #### 2 [id number] #### [employer] [facility] [place] [address] Basophils/100 WBC (Bld) 0.6 % Normal 0.0-2.0 [facility] Comment on above: Order Comment: Order Added by Discern Expert. Performed By: #### 2 [id number] #### [employer] [facility] [place] [address] Eos Absolute 0.1 E3/mcL Normal 0.0-0.7 [facility] Comment on above: Order Comment: Order Added by Discern Expert. Performed By: #### 2 [id number] #### [employer] [address] [place] [address] Eosinophils/100 WBC (Bld) 2.2 % Normal 0.0-11.0 [facility] Comment on above: Order Comment: Order Added by Discern Expert. Performed By: #### 2 [id number] #### [employer] [address] [place] [address]35 Lymphocytes #/vol (Bld) 1.9 E3/mcL Normal 1.2-3.4 [facility] Comment on above: Order Comment: Order Added by Discern Expert. Performed By: #### 2 [id number] #### [employer] [address] [place] [address]59[address] Lymphocytes/100 WBC (Bld) 31.0 % Normal 20.0-55.0 [facility] Comment on above: Order Comment: Order Added by Discern Expert. Performed By: #### 2 [id number] #### [employer] [address] [place] [address]50 Curry Absolute 0.8 E3/mcL High 0.0-0.7 [facility] Comment on above: Order Comment: Order Added by Discern Expert. Performed By: #### 2 [id number] #### [employer] [address] [place] [address] 49720 Monocytes/100 WBC (Bld) 13.2 % High 0.0-10.0 [facility] Comment on above: Order Comment: Order Added by Discern Expert. Performed By: #### 2 [id number] #### [employer] [address] [place] [address] 03892 Neutro Absolute 3.3 E3/mcL Normal 1.4-6.5 [facility] Comment on above: Order Comment: Order Added by Discern Expert. Performed By: #### 2 [id number] #### [employer] [address] [place] [address] 92743 Neutro Auto 53.0 % Normal 37.0-75.0 [facility] Comment on above: Order Comment: Order Added by Discern Expert. Performed By: #### 2 [id number] #### [employer] [address] [place] [address]12[address] BMPon 09-15-2018 Anion gap molar conc 10 mmol/L Normal 10-20 [facility] Comment on above: Performed By: #### 2 [id number] #### [employer]MO [employer] [address] [place] [address] Calcium mass conc 8.4 mg/dL Low 8.6-10.3 [facility] Comment on above: Performed By: #### 2 [id number] #### [employer]MO Rem[employer]emo [address] [place] [address] Chloride molar conc 105 mmol/L Normal 98-107 [facility] Comment on above: Performed By: #### 2 [id number] #### [employer] Rem[employer] [address] [place] [address] CO2 molar conc 26.0 mmol/L Normal 21.0-32.0 [facility] Comment on above: Performed By: #### 2 [id number] #### COSMO FregosoHemo [address] [place] [address] Creatinine mass conc 1.1 mg/dL Normal 0.5-1.3 [facility] Comment on above: Performed By: #### 2 278860 #### [employer]MO Rem[employer] [address] [place] [address] Glucose mass conc 136 mg/dL High 70-99 [facility] Comment on above: Performed By: #### 2 380487 #### [employer] [address] [place] [address] Potassium molar conc 4.1 mmol/L Normal 3.5-5.3 [facility] Comment on above: Performed By: #### 2 766404 #### [employer] Rem[employer]emo [address] [place] [address] Sodium molar conc 137 mmol/L Normal 136-145 [facility] Comment on above: Performed By: #### 2 [id number] #### [employer] Rem[employer] [address] [place] [address] Urea nitrogen mass conc 19 mg/dL Normal 6-23 [facility] Comment on above: Performed By: #### 2 366818 #### [employer] Rem[employer]emo [address] [place] [address] Urea nitrogen/Creatinine mass ratio 17.3 ratio Normal 5.4-30.0 [facility] Comment on above: Performed By: #### 2 [id number] #### [employer]MO Rem[employer]emo [address] [place] [address] CBC w/ Auto Diffon 9 Erythrocyte distribution width Ratio (RBC) 14.9 % High 11.5-14.5 [facility] Comment on above: Performed By: #### 2 568105 #### [employer] [address] [place] [address] Hematocrit Volume Fraction (Bld) 41.5 % Low 42.0-52.0 [facility] Comment on above: Performed By: #### 2 986596 #### [employer] [address] [place] [address] Hemoglobin mass conc (Bld) 13.6 g/dL Normal 13.5-18.0 [facility] Comment on above: Performed By: #### 2 975331 #### [employer] [address] [place], [place] [address] MCH Entitic mass (RBC) 29.6 pg Normal 27.0-31.[address] [facility] Comment on above: Performed By: #### 2 244472 #### [employer] [address] [place] [address] 52870 MCHC mass conc (RBC) 32.8 g/dL Low 33.0-37.0 [facility] Comment on above: Performed By: #### 2 455138 #### [employer] [address] [place] [address] 51492 MCV Entitic volume (RBC) 90.4 fL Normal 78.0-100.0 [facility] Comment on above: Performed By: #### 2 773223 #### [employer] [address] [place] [address] 86663 Platelet mean volume Entitic volume (Bld) 10.8 fL Normal 7.4-11.0 [facility] Comment on above: Performed By: #### 2 335838 #### [employer] [address] [place] [address]2520 Platelets #/vol (Bld) 137 E3/mcL Normal 130-400 [facility] Comment on above: Performed By: #### 2 142591 #### [employer] [address] [place] [address] RBC #/vol (Bld) 4.59 E6/mcL Normal 3.90-6.10 [facility] Comment on above: Performed By: #### 2 477258 #### [employer] [address] [place] [address] 71065 WBC #/vol (Bld) 6.2 E3/mcL Normal 3.6-11.0 [facility] Comment on above: Performed By: #### 2 449450 #### [employer] [address] [place], [place] [address] Glucose POCon 09-15-2018 Glucose mass conc 163 mg/dL High 70-99 [facility] Comment on above: Performed By: #### 2 660127 #### [employer] [address] [place] [address] Glucose mass conc 99 mg/dL Normal 70-99 [facility] Comment on above: Performed By: #### 2 361010 #### [employer] [address] [place], [place] [address] Troponin-Ion 09-15-2018 Troponin I.cardiac mass conc 0.01 ng/mL Normal 0.00-0.03 [facility] Comment on above: Performed By: #### 2 787268 #### [employer] [address] [place], [place] [address] eGFRon 09-15-2018 GFR/1.73 sq M predicted among non-blacks MDRD vol rate/area (S/P/Bld) mL/min/{1.73_m2} Normal [facility] Comment on above: Order Comment: Order added by Discern Expert. Performed By: #### 2 [id number] #### [employer] [address] [place] [address] Auto Diffon 09-14-2018 Basophils #/vol (Bld) 0.0 E3/mcL Normal 0.0-0.2 [facility] Comment on above: Order Comment: Order Added by Discern Expert. Performed By: #### 2 084862 #### [employer] [address] [place] [address] Basophils/100 WBC (Bld) 0.6 % Normal 0.0-2.0 [facility] Comment on above: Order Comment: Order Added by Discern Expert. Performed By: #### 2 947719 #### [employer] [address] [place] [address] Eos Absolute 0.1 E3/mcL Normal 0.0-0.7 [facility] Comment on above: Order Comment: Order Added by Discern Expert. Performed By: #### 2 436487 #### [employer]MO Rem[employer] [address] [place] [address] Eosinophils/100 WBC (Bld) 1.7 % Normal 0.0-11.0 [facility] Comment on above: Order Comment: Order Added by Discern Expert. Performed By: #### 2 700617 #### [employer] [address] [place] [address] Lymphocytes #/vol (Bld) 1.2 E3/mcL Normal 1.2-3.4 [facility] Comment on above: Order Comment: Order Added by Discern Expert. Performed By: #### 2 505118 #### [employer] [address] [place] [address] Lymphocytes/100 WBC (Bld) 16.5 % Low 20.0-55.0 [facility] Comment on above: Order Comment: Order Added by Discern Expert. Performed By: #### 2 157800 #### [employer]MO Rem[employer]emo [address] [place] [address] Curry Absolute 0.8 E3/mcL High 0.0-0.7 [facility] Comment on above: Order Comment: Order Added by Discern Expert. Performed By: #### 2 198612 #### [employer] Rem[employer] [address] [place] [address] Monocytes/100 WBC (Bld) 11.1 % High 0.0-10.0 [facility] Comment on above: Order Comment: Order Added by Discern Expert. Performed By: #### 2 954352 #### [employer] [address] [place] [address] Neutro Absolute 5.1 E3/mcL Normal 1.4-6.5 [facility] Comment on above: Order Comment: Order Added by Discern Expert. Performed By: #### 2 541203 #### [employer] Rem[employer]emo [address] [place] [address] Neutro Auto 70.1 % Normal 37.0-75.0 [facility] Comment on above: Order Comment: Order Added by Discern Expert. Performed By: #### 2 966509 #### [employer]MO Rem[employer]emo [address] [place] [address] BMPon 09-14-2018 Anion gap molar conc 13 mmol/L Normal 10-20 [facility] Comment on above: Performed By: #### 2 563939 #### [employer] [address] [place] [address] Calcium mass conc 9.2 mg/dL Normal 8.6-10.3 [facility] Comment on above: Performed By: #### 2 099495 #### [employer] [address] [place] [address]10[address] Chloride molar conc 105 mmol/L Normal 98-107 [facility] Comment on above: Performed By: #### 2 [id number] #### [employer] [address] [place] [address]1010 CO2 molar conc 24.0 mmol/L Normal 21.0-32.0 [facility] Comment on above: Performed By: #### 2 275175 #### [employer] [address] [place] [address] Creatinine mass conc 1.2 mg/dL Normal 0.5-1.3 [facility] Comment on above: Performed By: #### 2 672969 #### [employer] [address] [place] [address] Glucose mass conc 129 mg/dL High 70-99 [facility] Comment on above: Performed By: #### 2 406290 #### [employer] [address] [place] [address] Potassium molar conc 3.9 mmol/L Normal 3.5-5.3 [facility] Comment on above: Performed By: #### 2 038433 #### [employer] [address] [place] [address] 28384 Sodium molar conc 138 mmol/L Normal 136-145 [facility] Comment on above: Performed By: #### 2 407793 #### [employer] [address] [place] [address] Urea nitrogen mass conc 19 mg/dL Normal 6-23 [facility] Comment on above: Performed By: #### 2 594714 #### [employer] [address] [place] [address] Urea nitrogen/Creatinine mass ratio 15.8 ratio Normal 5.4-30.0 [facility] Comment on above: Performed By: #### 2 186814 #### [employer] [address] [place] [address] CBC w/ Auto Diffon 9 Erythrocyte distribution width Ratio (RBC) 15.2 % High 11.5-14.5 [facility] Comment on above: Performed By: #### 2 033968 #### [employer]MO Rem[employer] [address] [place] [address] Hematocrit Volume Fraction (Bld) 45.0 % Normal 42.0-52.0 [facility] Comment on above: Performed By: #### 2 511061 #### [employer]MO Rem[employer] [address] [place] [address] Hemoglobin mass conc (Bld) 15.0 g/dL Normal 13.5-18.0 [facility] Comment on above: Performed By: #### 2 822568 #### [employer]MO Rem[employer]emo [address] [place] [address] MCH Entitic mass (RBC) 29.8 pg Normal 27.0-31.[address] [facility] Comment on above: Performed By: #### 2 842994 #### COSMO Rem[employer]emo [address] [place] [address] MCHC mass conc (RBC) 33.4 g/dL Normal 33.0-37.0 [facility] Comment on above: Performed By: #### 2 034728 #### COSMO Rem[employer]emo [address] [place] [address] MCV Entitic volume (RBC) 89.4 fL Normal 78.0-100.0 [facility] Comment on above: Performed By: #### 2 275957 #### [employer] Rem[employer]emo [address] [place] [address] Platelet mean volume Entitic volume (Bld) 10.8 fL Normal 7.4-11.0 [facility] Comment on above: Performed By: #### 2 448222 #### COSMO FregosoHemo [address] [place] [address] Platelets #/vol (Bld) 158 E3/mcL Normal 130-400 [facility] Comment on above: Performed By: #### 2 445125 #### [employer] Rem[employer]emo [address] [place] [address] RBC #/vol (Bld) 5.04 E6/mcL Normal 3.90-6.10 [facility] Comment on above: Performed By: #### 2 383099 #### [employer]MO [employer]regoso[employer]emo [address] [place] [address] WBC #/vol (Bld) 7.2 E3/mcL Normal 3.6-11.0 [facility] Comment on above: Performed By: #### 2 774133 #### COSMO FreogsoHemo [address] [place] [address] CT Head or Brain w/o Contras ton 09-14-2018 CT Head or Brain w/o Contrast Exam Date/Time: 09/14/2018 15:21 EDT Reason for Exam: Injury Report STUDY: CT Head or Brain w/o Contrast; 09/14/2018 3:21 pm INDICATION: Injury. COMPARISON: 11/28/2016 ACCESSION NUMBER(S): [id number] ORDERING CLINICIAN: Kirsty Nguyen TECHNIQUE: Volume acquisition [...] by: Radha Olivarez MD Technologist: IZAIAH Normal [facility] CT Spine Cervical w/o Contra stoирина 09-14-2018 CT Spine Cervical w/o Contrast Exam Date/Time: 09/14/2018 15:22 EDT Reason for Exam: Trauma Report STUDY: CT Spine Cervical w/o Contrast; 09/14/2018 3:22 pm INDICATION: Trauma. COMPARISON: None. ACCESSION NUMBER(S): [id number] ORDERING CLINICIAN: Kirsty Nguyen TECHNIQUE: Axial CT [...] by: Radha Olivarez MD Technologist: IZAIAH Normal [facility] Glucose POCon 09-14-2018 Glucose mass conc 132 mg/dL High 70-99 [facility] Comment on above: Performed By: #### 2 [id number] #### [employer] [address] [place] [address] [id number] 09-14-2018 Hemoglobin A1c/Hemoglobin.total mass fraction (Bld) 6.9 % High 4.0-6.3 [facility] Comment on above: Performed By: #### 2 293555 #### [employer] [address] [place] [address] Magnesiumon 09-14-2018 Magnesium mass conc 2.0 Int._Unit/L Normal 1.6-2.4 [facility] Comment on above: Performed By: #### 2 594978 #### [employer] [address] [place] [address] PTon 09-14-2018 INR Coag RelTime (PPP) 1.0 {INR} Normal 0.9-1.[address] [facility] Comment on above: Result Comment: INR Recommended Therapeutic ranges: Prophylaxis/treatment of DVT and PE..........2.0-3.0 Prevention of systemic embolism.................2.0-3.0 Mechanical prosthetic values........................2.5-3.5 CRITICAL VALUE.........................................> 4.0 NOTE: New methodology started 05/16/2018 Performed By: #### 2 [id number] #### COSOM Vallejulian [facility] [place] [address] Prothrombin time (PT) Coag time (PPP) 11.8 second(s) Normal 9.7-12.7 [facility] Comment on above: Result Comment: NOTE : New reference range established on 05/16/2018 due to change in methodology. Performed By: #### 2 [id number] #### [employer]MO Rem[employer]emo [address] [place] [address] PTTon 09-14-2018 aPTT Coag time (Bld) 32 second(s) Normal 28-[address] [facility] Comment on above: Result Comment: NOTE :New reference range established 05/16/2018 due to change in methodology. Performed By: #### 2 [id number] #### [employer]MO Freg[address]Hemo [address] [place] [address] TSHon 09-14-2018 Thyrotropin Qn 5.25 mcIU/mL Normal 0.30-5.60 [facility] Comment on above: Performed By: #### 2 837285 #### [employer]MO Rem[employer]emo [address] [place] [address] Troponin-Ion 09-14-2018 Troponin I.cardiac mass conc 0.02 ng/mL Normal 0.00-0.03 [facility] Comment on above: Performed By: #### 2 445655 #### [employer] [address] [place] [address] UA Completeon 09-14-2018 Color Nom (U) Straw Normal Yellow [facility] Comment on above: Performed By: #### 2 996292 #### [employer] Rem[employer]emo [address] [place] [address] Glucose mass conc (U) Negative Normal Negative [facility] Comment on above: Performed By: #### 2 367997 #### [employer]MO Rem[employer]emo [address] [place] [address] Ketones Ql (U) Negative Normal Negative [facility] Comment on above: Performed By: #### 2 436028 #### [employer]emo [address] [place] [address] UA Blood Negative Normal Negative [facility] Comment on above: Performed By: #### 2 813011 #### [employer]MO Rem[employer]emo [address] [place] [address] UA Clarity Clear Normal Clear [facility] Comment on above: Performed By: #### 2 493070 #### [employer]MO [employer] [address] [place] [address] UA Hyal Cast 3-5 Abnormal 0-2 [facility] Comment on above: Performed By: #### 2 685406 #### [employer]MO Rem[employer]emo [address] [place] [address] UA Leuk Est Negative Normal Negative [facility] Comment on above: Performed By: #### 2 234028 #### [employer]MO [employer]emo [address] [place] [address] UA Mucous Trace Abnormal Trace [facility] Comment on above: Performed By: #### 2 337095 #### [employer]MO Rem[employer] [address] [place] [address] UA Nitrite Negative Normal Negative [facility] Comment on above: Performed By: #### 2 166240 #### [employer]MO [address] [address] [place] [address] UA pH 5.0 Normal 4.6-8.0 [facility] Comment on above: Performed By: #### 2 485699 #### [employer]MO [address] [address] [place] [address] UA Protein Negative Normal Negative [facility] Comment on above: Performed By: #### 2 999284 #### [employer]MO [employer] [address] [place] [address] UA Spec Grav 1.009 Normal 1.003-1.03 0 [facility] Comment on above: Performed By: #### 2 845060 #### [employer]MO [address]emo [address] [place] [address] UA Urobilinogen Negative Normal [facility] Comment on above: Result Comment: Due to a manufacturing issue, low positive urobilinogen results may be fasely positive. Correlate with urine bilirubin and additional clinical/laboratory findings to assess the risk of hemolytic anemia or liver disease. If clinically indicated, repeat testing with an alternate method is available by contacting the laboratory within 24 hours. Performed By: #### 2 [id number] #### COSMO FregosoHemo [facility] [place] [address] Urobilinogen Qn (U) Negative Normal Negative [facility] Comment on above: Performed By: #### 2 030106 #### COSMO FregosoHemo [facility] [place] [address] XR Chest AP Portableon 09-14 XR Chest AP Portable Exam Date/Time: 09/14/2018 15:43 EDT Reason for Exam: Chest pain Report STUDY: XR Chest AP Portable; 09/14/2018 3:43 pm INDICATION: Chest pain. COMPARISON: 12/25/2016 ACCESSION NUMBER(S): [id number] ORDERING CLINICIAN: Kirsty Nguyen FINDINGS: CARDIOMEDIASTINAL SILHOUETTE: [...] pm Signed by: Iva Vargas MD Technologist: [facility] XR Humerus Lefton 09-14-2018 XR Humerus Left Exam Date/Time: 09/14/2018 15:43 EDT Reason for Exam: Pain, Traumatic Report STUDY: XR Humerus Left; XR Shoulder Complete Left;; 09/14/2018 3:43 pm INDICATION: Pain, Traumatic. COMPARISON: None. ACCESSION NUMBER(S): [id number]; [id number] ORDERING CLINICIAN: Kirsty Nguyen FINDINGS: Five views [...] pm Signed by: Iva Vargas MD Technologist: [facility] XR Knee Complete Righton XR Knee Complete Right Exam Date/Time: 09/14/2018 15:43 EDT Reason for Exam: Pain, Traumatic Report STUDY: XR Knee Complete Right;; 09/14/2018 3:43 pm INDICATION: Pain, Traumatic. COMPARISON: None. ACCESSION NUMBER(S): [id number] ORDERING CLINICIAN: Kirsty Nguyen FINDINGS: Four views right knee: There is no fracture, dislocation or joint effusion. There is swelling anterior to the patella and infrapatellar tendon. IMPRESSION: No acute bony abnormality right knee, soft tissue swelling. FINAL REPORT Dictated: 09/14/2018 4:19 pm Iva Vargas MD Signed (Electronic Signature): 09/14/2018 4:19 pm Signed by: Iva Vargas MD Technologist: [facility] XR Shoulder Complete Lefton 09-14-2018 XR Shoulder Complete Left Exam Date/Time: 09/14/2018 15:43 EDT Reason for Exam: Pain, Traumatic Report STUDY: XR Humerus Left; XR Shoulder Complete Left;; 09/14/2018 3:43 pm INDICATION: Pain, Traumatic. COMPARISON: None. ACCESSION NUMBER(S): [id number]; [id number] ORDERING CLINICIAN: Kirsty Nguyen FINDINGS: Five views [...] pm Signed by: Iva Vargas MD Technologist: [facility] eGFRon 09-14-2018 GFR/1.73 sq M predicted among non-blacks MDRD vol rate/area (S/P/Bld) mL/min/{1.73_m2} [facility] Comment on above: Order Comment: Order added by Discern Expert. Performed By: #### 1 [id number] #### [employer]MO [employer] [address] [place] [address] Vital Signs Date Time Vital Sign Value Performing Clinician Facility 12-17-2024 15:10-0400 Body temperature 97.9 [degF] Dr. Marycarmen Rodriguez DO Work Phone: [facility] 12-17-2024 15:10-0400 Diastolic blood pressure 82 mm[Hg] Dr. Marycarmen Rodriguez DO Work Phone: [facility] 12-17-2024 15:10-0400 Heart rate 78 /min Dr. Marycarmen Rodriguez DO Work Phone: [facility] 12-17-2024 15:10-0400 Respiratory rate 18 /min Dr. Marycarmen Rodriguez DO Work Phone: [facility] 12-17-2024 15:10-0400 SaO2% (BldA) [Mass fraction] 99 % Dr. Marycarmen Rodriguez DO Work Phone: [facility] 12-17-2024 15:10-0400 Systolic blood pressure 100 mm[Hg] Dr. Marycarmen Rodriguez DO Work Phone: [facility] 12-17-2024 05:06-0400 Body mass index (BMI) [Ratio] 31.3 kg/m2 Dr. Marycarmen Rodriguez DO Work Phone: [facility] 12-17-2024 05:06-0400 Body weight 96.[address] Marycarmen Rodriguez DO Work Phone: [facility] 12-17-2024 02:53-0400 Inhaled oxygen concentration 21 % Dr. Mayrcarmen Rodriguez DO Work Phone: [facility] 12-16-2024 11:59-0400 Body height 175.[address] Marycarmen Rodriguez DO Work Phone: [facility] 12-12-2024 10:23-0400 Body height 175.[address] Marycarmen Rodriguez DO Work Phone: [facility] 12-12-2024 10:23-0400 Body mass index (BMI) [Ratio] 31.7 kg/m2 Dr. Marycarmen Rodriguez DO Work Phone: [facility] 12-12-2024 10:23-0400 Body weight 97.[address] Marycarmen Rodriguez DO Work Phone: [facility] 12-12-2024 10:23-0400 Diastolic blood pressure 74 mm[Hg] Dr. Marycarmen Rodriguez DO Work Phone: [facility] 12-12-2024 10:23-0400 Heart rate 75 /min Dr. Marycarmen Rodriguez DO Work Phone: [facility] 12-12-2024 10:23-0400 Respiratory rate 16 /min Dr. Marycarmen Rodriguez DO Work Phone: [facility] 12-12-2024 10:23-0400 Systolic blood pressure 106 mm[Hg] Dr. Marycarmen Rodriguez DO Work Phone: [facility] 12-08-2024 12:30-0400 Body temperature 97.7 [degF] Dr. Marycarmen Rodriguez DO Work Phone: [facility] 12-08-2024 12:30-0400 Diastolic blood pressure 81 mm[Hg] Dr. Marycarmen Rodriguez DO Work Phone: [facility] 12-08-2024 12:30-0400 Heart rate 72 /min Dr. Marycarmen Rodriguez DO Work Phone: [facility] 12-08-2024 12:30-0400 Respiratory rate 18 /min Dr. Marycarmen Rodriguez DO Work Phone: [facility] 12-08-2024 12:30-0400 SaO2% (BldA) [Mass fraction] 96 % Dr. Marycarmen Rodriguez DO Work Phone: [facility] 12-08-2024 12:30-0400 Systolic blood pressure 121 mm[Hg] Dr. Marycarmen Rodriguez DO Work Phone: [facility] 12-08-2024 01:20-0400 Inhaled oxygen concentration 21 % Dr. Marycarmen Rodriguez DO Work Phone: [facility] 12-07-2024 17:24-0400 Body height 175.[address] Marycarmen Rodriguez DO Work Phone: [facility] 12-07-2024 17:24-0400 Body mass index (BMI) [Ratio] 32.1 kg/m2 Dr. Marycarmen Rodriguez DO Work Phone: [facility] 12-07-2024 17:24-0400 Body weight 98.[address] Marycarmen Rodriguez DO Work Phone: [facility] 12-07-2024 16:00-0400 SaO2% (BldA) [Mass fraction] 97 % Dr. Marycarmen Rodriguez DO Work Phone: [facility] 12-07-2024 15:13-0400 Body temperature 98.2 [degF] Dr. Marycarmen Rodriguez DO Work Phone: [facility] 12-07-2024 15:13-0400 Diastolic blood pressure 61 mm[Hg] Dr. Marycarmen Rodriguez DO Work Phone: [facility] 12-07-2024 15:13-0400 Heart rate 22 /min Dr. Marycarmen Rodriguez DO Work Phone: [facility] 12-07-2024 15:13-0400 Respiratory rate 22 /min Dr. Marycarmen Rodriguez DO Work Phone: [facility] 12-07-2024 15:13-0400 Systolic blood pressure 114 mm[Hg] Dr. Marycarmen Rodriguez DO Work Phone: [facility] 12-07-2024 11:05-0400 Inhaled oxygen flow rate 2 L/min Dr. Marycarmen Rodriguez DO Work Phone: [facility] 12-07-2024 10:52-0400 Body height 175.[address] Marycarmen Rodriguez DO Work Phone: [facility] 12-07-2024 10:52-0400 Body mass index (BMI) [Ratio] 33.4 kg/m2 Dr. Marycarmen Rodriguez DO Work Phone: [facility] 12-07-2024 10:52-0400 Body weight 102.[address] Marycarmen Rodriguez DO Work Phone: [facility] 12-06-2024 12:45-0400 Body temperature 98 [degF] Dr. Marycarmen Rodriguez DO Work Phone: [facility] 12-06-2024 12:45-0400 Diastolic blood pressure 86 mm[Hg] Dr. Marycarmen Rodriguez DO Work Phone: [facility] 12-06-2024 12:45-0400 Heart rate 84 /min Dr. Marycarmen Rodriguez DO Work Phone: [facility] 12-06-2024 12:45-0400 Respiratory rate 14 /min Dr. Marycarmen Rodriguez DO Work Phone: [facility] 12-06-2024 12:45-0400 SaO2% (BldA) [Mass fraction] 99 % Dr. Marycarmen Rodriguez DO Work Phone: [facility] 12-06-2024 12:45-0400 Systolic blood pressure 126 mm[Hg] Dr. Marycarmen Rodriguez DO Work Phone: [facility] 12-06-2024 06:00-0400 Body mass index (BMI) [Ratio] 33 kg/m2 Dr. Marycarmen Rodriguez DO Work Phone: [facility] 12-06-2024 06:00-0400 Body weight 101.[address] Marycarmen Rodriguez DO Work Phone: [facility] 12-06-2024 00:25-0400 Inhaled oxygen concentration 21 % Dr. Marycarmen Rodriguez DO Work Phone: [facility] 12-05-2024 08:28-0400 Heart rate 70 /min Dr. Marycarmen Rodriguez DO Work Phone: [facility] 12-05-2024 08:06-0400 Body temperature 97.6 [degF] Dr. Marycarmen Rodriguez DO Work Phone: [facility] 12-05-2024 08:06-0400 Diastolic blood pressure 80 mm[Hg] Dr. Marycarmen Rodriguez DO Work Phone: [facility] 12-05-2024 08:06-0400 Respiratory rate 18 /min Dr. Marycarmen Rodriguez DO Work Phone: [facility] 12-05-2024 08:06-0400 SaO2% (BldA) [Mass fraction] 100 % Dr. Marycarmen Rodriguez DO Work Phone: [facility] 12-05-2024 08:06-0400 Systolic blood pressure 123 mm[Hg] Dr. Marycarmen Rodriguez DO Work Phone: [facility] 12-05-2024 05:20-0400 Body mass index (BMI) [Ratio] 33.1 kg/m2 Dr. Marycarmen Rodriguez DO Work Phone: [facility] 12-05-2024 05:20-0400 Body weight 101.[address] Marycarmen Rodriguez DO Work Phone: [facility] 12-04-2024 22:55-0400 Inhaled oxygen concentration 21 % Dr. Marycarmen Rodriguez DO Work Phone: [facility] 12-04-2024 08:07-0400 Inhaled oxygen flow rate 2 L/min Dr. Marycarmen Rodriguez DO Work Phone: [facility] 12-02-2024 21:54-0400 Body height 175.[address] Marycarmen Rodriguez DO Work Phone: [facility] 12-02-2024 20:56-0400 Body temperature 98.8 [degF] Dr. Marycarmen Rodriguez DO Work Phone: [facility] 12-02-2024 20:56-0400 Diastolic blood pressure 78 mm[Hg] Dr. Marycarmen Rodriguez DO Work Phone: [facility] 12-02-2024 20:56-0400 Heart rate 77 /min Dr. Marycarmen Rodriguez DO Work Phone: [facility] 12-02-2024 20:56-0400 Respiratory rate 21 /min Dr. Marycarmen Rodriguez DO Work Phone: [facility] 12-02-2024 20:56-0400 SaO2% (BldA) [Mass fraction] 96 % Dr. Marycarmen Rodriguez DO Work Phone: [facility] 12-02-2024 20:56-0400 Systolic blood pressure 114 mm[Hg] Dr. Marycarmen Rodriguez DO Work Phone: [facility] 12-02-2024 20:21-0400 Inhaled oxygen flow rate 3 L/min Dr. Marycarmen Rodriguez DO Work Phone: [facility] 12-02-2024 20:16-0400 Body height 175.[address] Marycarmen Rodriguez DO Work Phone: [facility] 12-02-2024 20:16-0400 Body mass index (BMI) [Ratio] 35.9 kg/m2 Dr. Marycarmen Rodriguez DO Work Phone: [facility] 12-02-2024 20:16-0400 Body weight 110.[address] Marycarmen Rodriguez DO Work Phone: [facility] 12-02-2024 14:08-0400 Body temperature 98.8 [degF] Dr. Marycarmen Rodriguez DO Work Phone: [facility] 12-02-2024 14:08-0400 Diastolic blood pressure 72 mm[Hg] Dr. Marycarmen Rodriguez DO Work Phone: [facility] 12-02-2024 14:08-0400 Heart rate 78 /min Dr. Marycarmen Rodriguez DO Work Phone: [facility] 12-02-2024 14:08-0400 Respiratory rate 18 /min Dr. Marycarmen Rodriguez DO Work Phone: [facility] 12-02-2024 14:08-0400 SaO2% (BldA) [Mass fraction] 98 % Dr. Marycarmen Rodriguez DO Work Phone: [facility] 12-02-2024 14:08-0400 Systolic blood pressure 150 mm[Hg] Dr. Marycarmen Rodriguez DO Work Phone: [facility] 12-02-2024 14:01-0400 Inhaled oxygen flow rate 3 L/min Dr. Marycarmen Rodriguez DO Work Phone: [facility] 12-02-2024 08:32-0400 Body height 175.[address] Marycarmen Rodriguez DO Work Phone: [facility] 12-02-2024 08:32-0400 Body weight 109.[address] Marycarmen Rodriguez DO Work Phone: [facility] 12-02-2024 05:30-0400 Body mass index (BMI) [Ratio] 35.6 kg/m2 Dr. Marycarmen Rodriguez DO Work Phone: [facility] 11-30-2024 15:45-0400 Diastolic blood pressure 70 mm[Hg] Dr. Marycarmen Rodriguez DO Work Phone: [facility] 11-30-2024 15:45-0400 Systolic blood pressure 146 mm[Hg] Dr. Marycarmen Rodriguez DO Work Phone: [facility] 11-28-2024 09:15-0400 SaO2% (BldA) [Mass fraction] 94 % Dr. Marycarmen Rodriguez DO Work Phone: [facility] 11-28-2024 09:10-0400 Body temperature 97.5 [degF] Dr. Marycarmen Rodriguez DO Work Phone: [facility] 11-28-2024 09:10-0400 Diastolic blood pressure 64 mm[Hg] Dr. Marycarmen Rodriguez DO Work Phone: [facility] 11-28-2024 09:10-0400 Heart rate 86 /min Dr. Marycarmen Rodriguez DO Work Phone: [facility] 11-28-2024 09:10-0400 Respiratory rate 18 /min Dr. Marycarmen Rodriguez DO Work Phone: [facility] 11-28-2024 09:10-0400 Systolic blood pressure 129 mm[Hg] Dr. Marycarmen Rodriguez DO Work Phone: [facility] 11-28-2024 05:13-0400 Body mass index (BMI) [Ratio] 35.2 kg/m2 Dr. Marycarmen Rodriguez DO Work Phone: [facility] 11-28-2024 05:13-0400 Body weight 108.[address] Marycarmen Rodriguez DO Work Phone: [facility] 11-27-2024 15:54-0400 Body height 175.[address] Marycarmen Rodriguez DO Work Phone: [facility] 11-27-2024 15:54-0400 Body mass index (BMI) [Ratio] 35.4 kg/m2 Dr. Marycarmen Rodriguez DO Work Phone: [facility] 11-27-2024 15:54-0400 Body weight 108.[address] Marycarmen Rodriguez DO Work Phone: [facility] 11-27-2024 13:45-0400 Diastolic blood pressure 68 mm[Hg] Dr. Marycarmen Rodriguez DO Work Phone: [facility] 11-27-2024 13:45-0400 Heart rate 75 /min Dr. Marycarmen Rodriguez DO Work Phone: [facility] 11-27-2024 13:45-0400 Respiratory rate 21 /min Dr. Marycarmen Rodriguez DO Work Phone: [facility] 11-27-2024 13:45-0400 SaO2% (BldA) [Mass fraction] 95 % Dr. Marycarmen Rodriguez DO Work Phone: [facility] 11-27-2024 13:45-0400 Systolic blood pressure 115 mm[Hg] Dr. Marycarmen Rodriguez DO Work Phone: [facility] 11-26-2024 21:38-0400 Body temperature 98.1 [degF] Dr. Marycarmen Rodriguez DO Work Phone: [facility] 11-26-2024 21:38-0400 Diastolic blood pressure 68 mm[Hg] Dr. Marycarmen Rodriguez DO Work Phone: [facility] 11-26-2024 21:38-0400 Heart rate 68 /min Dr. Marycarmen Rodriguez DO Work Phone: [facility] 11-26-2024 21:38-0400 Respiratory rate 18 /min Dr. Marycarmen Rodriguez DO Work Phone: [facility] 11-26-2024 21:38-0400 SaO2% (BldA) [Mass fraction] 98 % Dr. Marycarmen Rodriguez DO Work Phone: [facility] 11-26-2024 21:38-0400 Systolic blood pressure 132 mm[Hg] Dr. Marycarmen Rodriguez DO Work Phone: [facility] 11-26-2024 18:03-0400 Inhaled oxygen flow rate 2 L/min Dr. Marycarmen Rodriguez DO Work Phone: [facility] 11-26-2024 17:37-0400 Body height 175.[address] Marycarmen Rodriguez DO Work Phone: [facility] 11-26-2024 17:37-0400 Body mass index (BMI) [Ratio] 37.3 kg/m2 Dr. Marycarmen Rodriguez DO Work Phone: [facility] 11-26-2024 17:37-0400 Body weight 114.[address] Marycarmen Rodriguez DO Work Phone: [facility] 11-22-2024 10:41-0400 Body mass index (BMI) [Ratio] 35.9 kg/m2 Dr. Marycarmen Rodriguez DO Work Phone: [facility] 11-22-2024 10:41-0400 Body weight 110.[address] Marycarmen Rodriguez DO Work Phone: [facility] 11-22-2024 10:41-0400 Diastolic blood pressure 62 mm[Hg] Dr. Marycarmen Rodriguez DO Work Phone: [facility] 11-22-2024 10:41-0400 Heart rate 66 /min Dr. Marycarmen Rodriguez DO Work Phone: [facility] 11-22-2024 10:41-0400 Respiratory rate 20 /min Dr. Marycarmen Rodriguez DO Work Phone: [facility] 11-22-2024 10:41-0400 Systolic blood pressure 107 mm[Hg] Dr. Marycarmen Rodriguez DO Work Phone: [facility] 10-31-2024 07:44-0400 Body mass index (BMI) [Ratio] 35.4 kg/m2 Dr. Marycarmen Rodriguez DO Work Phone: [facility] 10-31-2024 07:44-0400 Body temperature 97.1 [degF] Dr. Marycarmen Rodriguez DO Work Phone: [facility] 10-31-2024 07:44-0400 Body weight 108.[address] Marycarmen Rodriguez DO Work Phone: [facility] 10-31-2024 07:44-0400 Diastolic blood pressure 75 mm[Hg] Dr. Marycarmen Rodriguez DO Work Phone: [facility] 10-31-2024 07:44-0400 Heart rate 64 /min Dr. Marycarmen Rodriguez DO Work Phone: [facility] 10-31-2024 07:44-0400 Respiratory rate 20 /min Dr. Marycarmen Rodriguez DO Work Phone: [facility] 10-31-2024 07:44-0400 SaO2% (BldA) [Mass fraction] 97 % Dr. Marycarmen Rodriguez DO Work Phone: [facility] 10-31-2024 07:44-0400 Systolic blood pressure 135 mm[Hg] Dr. Marycarmen Rodriguez DO Work Phone: [facility] 10-25-2024 08:10-0400 Body height 175.[address] Marycarmen Rodriguez DO Work Phone: [facility] 10-25-2024 08:10-0400 Body mass index (BMI) [Ratio] 35.9 kg/m2 Dr. Marycarmen Rodriguez DO Work Phone: [facility] 10-25-2024 08:10-0400 Body weight 110.[address] Marycarmen Rodriguez DO Work Phone: [facility] 10-25-2024 08:10-0400 Diastolic blood pressure 85 mm[Hg] Dr. Marycarmen Rodriguez DO Work Phone: [facility] 10-25-2024 08:10-0400 Heart rate 85 /min Dr. Marycarmen Rodriguez DO Work Phone: [facility] 10-25-2024 08:10-0400 Respiratory rate 18 /min Dr. Marycarmen Rodriguez DO Work Phone: [facility] 10-25-2024 08:10-0400 Systolic blood pressure 121 mm[Hg] Dr. Marycarmen Rodriguez DO Work Phone: [facility] 09-20-2024 09:15-0400 Body height 175.[address] Marycarmen Rodriguez DO Work Phone: [facility] 09-20-2024 09:15-0400 Body mass index (BMI) [Ratio] 35.6 kg/m2 Dr. Marycarmen Rodriguez DO Work Phone: [facility] 09-20-2024 09:15-0400 Body temperature 96.8 [degF] Dr. Marycarmen Rodriguez DO Work Phone: [facility] 09-20-2024 09:15-0400 Body weight 109.[address] Marycarmen Rodriguez DO Work Phone: [facility] 09-20-2024 09:15-0400 Diastolic blood pressure 77 mm[Hg] Dr. Marycarmen Rodriguez DO Work Phone: [facility] 09-20-2024 09:15-0400 Heart rate 66 /min Dr. Marycarmen Rodriguez DO Work Phone: [facility] 09-20-2024 09:15-0400 Respiratory rate 18 /min Dr. Marycarmen Rodriguez DO Work Phone: [facility] 09-20-2024 09:15-0400 SaO2% (BldA) [Mass fraction] 97 % Dr. Marycarmen Rodriguez DO Work Phone: [facility] 09-20-2024 09:15-0400 Systolic blood pressure 121 mm[Hg] Dr. Marycarmen Rodriguez DO Work Phone: [facility] 07-18-2024 06:00-0400 Body height 175.[address] Marycarmen Rodriguez DO Work Phone: [facility] 07-18-2024 06:00-0400 Body weight 104.[address] Marycarmen Rodriguez DO Work Phone: [facility] 07-18-2024 06:00-0400 Heart rate 69 /min Dr. Marycarmen Rodriguez DO Work Phone: [facility] 07-18-2024 06:00-0400 SaO2% (BldA) [Mass fraction] 97 % Dr. Marycarmen Rodriguez DO Work Phone: [facility] 07-03-2024 08:35-0500 Body mass index (BMI) [Ratio] 36.6 kg/m2 Dr. Marycarmen Rodriguez DO Work Phone: [facility] 07-03-2024 08:35-0500 Body temperature 97.5 [degF] Dr. Marycarmen Rodriguez DO Work Phone: [facility] 07-03-2024 08:35-0500 Body weight 109.[address] Marycarmen Rodriguez DO Work Phone: [facility] 07-03-2024 08:35-0500 Diastolic blood pressure 77 mm[Hg] Dr. Marycarmen Rodriguez DO Work Phone: [facility] 07-03-2024 08:35-0500 Heart rate 72 /min Dr. Marycarmen Rodriguez DO Work Phone: [facility] 07-03-2024 08:35-0500 Respiratory rate 20 /min Dr. Marycarmen Rodriguez DO Work Phone: [facility] 07-03-2024 08:35-0500 SaO2% (BldA) [Mass fraction] 96 % Dr. Marycarmen Rodriguez DO Work Phone: [facility] 07-03-2024 08:35-0500 Systolic blood pressure 116 mm[Hg] Dr. Marycarmen Rodriguez DO Work Phone: [facility] 04-17-2024 15:55-0500 Body height [address] Marycarmen Rodriguez DO Work Phone: [facility] 04-17-2024 15:55-0500 Body mass index (BMI) [Ratio] 36.9 kg/m2 Dr. Marycarmen Rodriguez DO Work Phone: [facility] 04-17-2024 15:55-0500 Body weight 110.[address] Marycarmen Rodriguez DO Work Phone: [facility] 04-17-2024 15:55-0500 Diastolic blood pressure 53 mm[Hg] Dr. Marycarmen Rodriguez DO Work Phone: [facility] 04-17-2024 15:55-0500 Heart rate 70 /min Dr. Marycarmen Rodriguez DO Work Phone: [facility] 04-17-2024 15:55-0500 Respiratory rate 18 /min Dr. Marycarmen Rodriguez DO Work Phone: [facility] 04-17-2024 15:55-0500 SaO2% (BldA) [Mass fraction] 94 % Dr. Marycarmen Rodriguez DO Work Phone: [facility] 04-17-2024 15:55-0500 Systolic blood pressure 91 mm[Hg] Dr. Marycarmen Rodriguez DO Work Phone: [facility] 03-27-2024 10:17-0500 Diastolic blood pressure 79 mm[Hg] Dr. Marycarmen Rodriguez DO Work Phone: [facility] 03-27-2024 10:17-0500 Heart rate 67 /min Dr. Marycarmen Rodriguez DO Work Phone: [facility] 03-27-2024 10:17-0500 Respiratory rate 18 /min Dr. Marycarmen Rodriguez DO Work Phone: [facility] 03-27-2024 10:17-0500 Systolic blood pressure 134 mm[Hg] Dr. Marycarmen Rodriguez DO Work Phone: [facility] 03-20-2024 08:28-0500 Body mass index (BMI) [Ratio] 37.5 kg/m2 Dr. Marycarmen Rodriguez DO Work Phone: [facility] 03-20-2024 08:28-0500 Body weight 112.[address] Marycarmen Rodriguez DO Work Phone: [facility] 03-20-2024 08:28-0500 Diastolic blood pressure 89 mm[Hg] Dr. Marycarmen Rodriguez DO Work Phone: [facility] 03-20-2024 08:28-0500 Heart rate 61 /min Dr. Marycarmen Rodriguez DO Work Phone: [facility] 03-20-2024 08:28-0500 Respiratory rate 18 /min Dr. Marycarmen Rodriguez DO Work Phone: [facility] 03-20-2024 08:28-0500 Systolic blood pressure 141 mm[Hg] Dr. Marycarmen Rodriguez DO Work Phone: [facility] 12-21-2022 07:51-0400 Body height 172.[address] Marycarmen Rodriguez Work Phone: [facility] 12-21-2022 07:51-0400 Body weight 85.[address] Marycarmen Rodriguez Work Phone: [facility] 12-18-2022 08:27-0400 Body mass index (BMI) [Ratio] 28.7 kg/m2 Dr. Marycarmen Rodriguez Work Phone: [facility] 12-15-2022 13:03-0400 Body mass index (BMI) [Ratio] 28.7 kg/m2 Dr. Marycarmen Rodriguez Work Phone: [facility] 12-15-2022 13:03-0400 Body weight 85.[address] Marycarmen Rodriguez Work Phone: [facility] 12-15-2022 13:03-0400 Diastolic blood pressure 92 mm[Hg] Dr. Marycarmen Rodriguez Work Phone: [facility] 12-15-2022 13:03-0400 Heart rate 72 /min Dr. Marycarmen Rodriguez Work Phone: [facility] 12-15-2022 13:03-0400 Respiratory rate 16 /min Dr. Marycarmen Rodriguez Work Phone: [facility] 12-15-2022 13:03-0400 Systolic blood pressure 156 mm[Hg] Dr. Marycarmen Rodriguez Work Phone: [facility] 10-13-2022 10:59-0400 Body height 172.72 cm Marycarmen SWAIN [facility] 10-13-2022 10:59-0400 Body mass index (BMI) [Ratio] 25.4 kg/m2 Marycarmen SWAIN [facility] 10-13-2022 10:59-0400 Body weight 75.74 kg Marycarmen Jennifer [facility] 10-13-2022 10:59-0400 Diastolic blood pressure 75 mm[Hg] Marycarmen Jennifer [facility] 10-13-2022 10:59-0400 Heart rate 65 /min Marycarmen Jennifer [facility] 10-13-2022 10:59-0400 Respiratory rate 18 /min Marycarmen Jennifer [facility] 10-13-2022 10:59-0400 SaO2% (BldA) [Mass fraction] 94 % Marycarmen Jennifer [facility] 10-13-2022 10:59-0400 Systolic blood pressure 143 mm[Hg] Marycarmen Jennifer [facility] 09-21-2022 15:30-0400 Body mass index (BMI) [Ratio] 34.7 kg/m2 [facility] 09-21-2022 15:27-0400 Body temperature 98 [degF] Marycarmen [facility] 09-21-2022 15:27-0400 Diastolic blood pressure 84 mm[Hg] Marycarmen Jennifer [facility] 09-21-2022 15:27-0400 Heart rate 79 /min Marycarmen Jennifer [facility] 09-21-2022 15:27-0400 Respiratory rate 17 /min Marycarmen Jennifer [facility] 09-21-2022 15:27-0400 SaO2% (BldA) [Mass fraction] 96 % Marycarmen Jennifer [facility] 09-21-2022 15:27-0400 Systolic blood pressure 143 mm[Hg] Marycarmen Jennifer [facility] 09-21-2022 06:25-0400 Body weight 103.6 kg Marycarmen Jennifer [facility] 09-19-2022 01:30-0400 Inhaled oxygen concentration 21 % [facility] 09-01-2022 09:59-0400 Diastolic blood pressure 68 mm[Hg] Marycarmen Jennifer [facility] 09-01-2022 09:59-0400 Heart rate 49 /min Marycarmen Jennifer [facility] 09-01-2022 09:59-0400 Systolic blood pressure 127 mm[Hg] Marycarmen Jennifer [facility] 09-01-2022 09:57-0400 Body temperature 97.9 [degF] Marycarmen Jennifer [facility] 09-01-2022 09:57-0400 Respiratory rate 18 /min Marycarmen Jennifer [facility] 09-01-2022 09:57-0400 SaO2% (BldA) [Mass fraction] 93 % Marycarmen Jennifer [facility] 09-01-2022 04:08-0400 Body mass index (BMI) [Ratio] 35.2 kg/m2 Marycarmen Jennifer [facility] 09-01-2022 04:08-0400 Body weight 108.2 kg Marycarmen Jennifer [facility] 08-31-2022 11:42-0400 Body height 175.26 cm Marycarmen Jennifer [facility] 08-19-2022 10:01-0400 Body height 175.26 cm Marycarmen Jennifer [facility] 08-19-2022 10:01-0400 Body mass index (BMI) [Ratio] 35.4 kg/m2 Marycarmen Jennifer [facility] 08-19-2022 10:01-0400 Body weight 109.03 kg Marycarmen Jennifer [facility] 08-19-2022 10:01-0400 Diastolic blood pressure 79 mm[Hg] Marycarmen Jennifer [facility] 08-19-2022 10:01-0400 Heart rate 62 /min Marycarmen Jennifer [facility] 08-19-2022 10:01-0400 Respiratory rate 18 /min Marycarmen Jenniferdiogenes SWAIN [facility] 08-19-2022 10:01-0400 Systolic blood pressure 144 mm[Hg] Marycarmen Jennifer [facility] 04-16-2022 12:43-0500 Body height 175.[address] Marycarmen Rodriguez Work Phone: [facility] 04-16-2022 12:43-0500 Body mass index (BMI) [Ratio] 35.2 kg/m2 Dr. Marycarmen Rodriguez Work Phone: [facility] 04-16-2022 12:43-0500 Body temperature 97 [degF] Dr. Marycarmen Rodriguez Work Phone: [facility] 04-16-2022 12:43-0500 Body weight 108.[address] Marycarmen Rodriguez Work Phone: [facility] 04-16-2022 12:43-0500 Diastolic blood pressure 78 mm[Hg] Dr. Marycarmen Rodriguez Work Phone: [facility] 04-16-2022 12:43-0500 Heart rate 66 /min Dr. Marycarmen Rodriguez Work Phone: [facility] 04-16-2022 12:43-0500 Respiratory rate 18 /min Dr. Marycarmen Rodriguez Work Phone: [facility] 04-16-2022 12:43-0500 SaO2% (BldA) [Mass fraction] 94 % Dr. Marycarmen Rodriguez Work Phone: [facility] 04-16-2022 12:43-0500 Systolic blood pressure 125 mm[Hg] Dr. Marycarmen Rodriguez Work Phone: [facility] 04-14-2022 10:27-0500 Body mass index (BMI) [Ratio] 35.2 kg/m2 Dr. Marycarmen Rodriguez Work Phone: [facility] 04-14-2022 10:27-0500 Body weight 108.[address] Marycarmen Rodriguez Work Phone: [facility] 04-14-2022 10:27-0500 Diastolic blood pressure 68 mm[Hg] Dr. Marycarmen Rodriguez Work Phone: [facility] 04-14-2022 10:27-0500 Heart rate 64 /min Dr. Marycarmen Rodriguez Work Phone: [facility] 04-14-2022 10:27-0500 Respiratory rate 18 /min Dr. Marycarmen Rodriguez Work Phone: [facility] 04-14-2022 10:27-0500 Systolic blood pressure 130 mm[Hg] Dr. Marycarmen Rodriguez Work Phone: [facility] 03-27-2022 13:25-0500 Body temperature 97.9 [degF] Dr. Marycarmen Rodriguez Work Phone: [facility] 03-27-2022 13:25-0500 Diastolic blood pressure 86 mm[Hg] Dr. Marycarmen Rodriguez Work Phone: [facility] 03-27-2022 13:25-0500 Heart rate 86 /min Dr. Marycarmen Rodriguez Work Phone: [facility] 03-27-2022 13:25-0500 Respiratory rate 14 /min Dr. Marycarmen Rodriguez Work Phone: [facility] 03-27-2022 13:25-0500 SaO2% (BldA) [Mass fraction] 96 % Dr. Marycarmen Rodriguez Work Phone: [facility] 03-27-2022 13:25-0500 Systolic blood pressure 134 mm[Hg] Dr. Marycarmen Rodriguez Work Phone: [facility] 01-07-2022 11:07-0400 Body mass index (BMI) [Ratio] 34.9 kg/m2 Dr. Marycarmen Rodriguez Work Phone: [facility] Work Phone: 01-07-2022 11:07-0400 Body temperature 97.4 [degF] Dr. Marycarmen Rodriguez Work Phone: [facility] Work Phone: 01-07-2022 11:07-0400 Body weight 107.[address] Marycarmen Rodriguez Work Phone: [facility] Work Phone: 01-07-2022 11:07-0400 Diastolic blood pressure 87 mm[Hg] Dr. Marycarmen Rodriguez Work Phone: [facility] Work Phone: 01-07-2022 11:07-0400 Heart rate 60 /min Dr. Marycarmen Rodriguez Work Phone: [facility] Work Phone: 01-07-2022 11:07-0400 Respiratory rate 16 /min Dr. Marycarmen Rodriguez Work Phone: [facility] Work Phone: 01-07-2022 11:07-0400 SaO2% (BldA) [Mass fraction] 96 % Dr. Marycarmen Rodriguez Work Phone: [facility] Work Phone: 01-07-2022 11:07-0400 Systolic blood pressure 155 mm[Hg] Dr. Marycarmen Rodriguez Work Phone: [facility] Work Phone: 11-21-2021 10:24-0400 Body height 175.[address] Marycarmen Rodriguez Work Phone: [facility] Work Phone: 11-21-2021 10:24-0400 Body mass index (BMI) [Ratio] 34.9 kg/m2 Dr. Marycarmen Rodriguez Work Phone: [facility] Work Phone: 11-21-2021 10:24-0400 Body weight 107.[address] Marycarmen Rodriguez Work Phone: [facility] Work Phone: 11-21-2021 10:24-0400 Diastolic blood pressure 77 mm[Hg] Dr. Marycarmen Rodriguez Work Phone: [facility] Work Phone: 11-21-2021 10:24-0400 Heart rate 61 /min Dr. Marycarmen Rodriguez Work Phone: [facility] Work Phone: 11-21-2021 10:24-0400 Respiratory rate 18 /min Dr. Marycarmen Rodriguez Work Phone: [facility] Work Phone: 11-21-2021 10:24-0400 SaO2% (BldA) [Mass fraction] 97 % Dr. Marycarmen Rodriguez Work Phone: [facility] Work Phone: 11-21-2021 10:24-0400 Systolic blood pressure 138 mm[Hg] Dr. Marycarmen Rodriguez Work Phone: [facility] Work Phone: 11-16-2021 16:49-0400 Diastolic blood pressure 87 mm[Hg] Dr. Marycarmen Rodriguez Work Phone: [facility] Work Phone: 11-16-2021 16:49-0400 Heart rate 53 /min Dr. Marycarmen Rodriguez Work Phone: [facility] Work Phone: 11-16-2021 16:49-0400 Respiratory rate 16 /min Dr. Marycarmen Rodriguez Work Phone: [facility] Work Phone: 11-16-2021 16:49-0400 SaO2% (BldA) [Mass fraction] 93 % Dr. Marycarmen Rodriguez Work Phone: [facility] Work Phone: 11-16-2021 16:49-0400 Systolic blood pressure 117 mm[Hg] Dr. Marycarmen Rodriguez Work Phone: [facility] Work Phone: 11-16-2021 12:55-0400 Body mass index (BMI) [Ratio] 33.2 kg/m2 Dr. Marycarmen Rodriguez Work Phone: [facility] Work Phone: 11-16-2021 12:55-0400 Body temperature 97.6 [degF] Dr. Marycarmen Rodriguez Work Phone: [facility] Work Phone: 11-16-2021 12:55-0400 Body weight 102.[address] Marycarmen Rodriguez Work Phone: [facility] Work Phone: 09-16-2021 10:37-0400 Body height 175.[address] Marycarmen Rodriguez Work Phone: [facility] Work Phone: 09-16-2021 10:37-0400 Body mass index (BMI) [Ratio] 35.7 kg/m2 Dr. Marycarmen Rodriguez Work Phone: [facility] Work Phone: 09-16-2021 10:37-0400 Body weight 109.[address] Marycarmen Rodriguez Work Phone: [facility] Work Phone: 09-16-2021 10:37-0400 Diastolic blood pressure 69 mm[Hg] Dr. Marycarmen Rodriguez Work Phone: [facility] Work Phone: 09-16-2021 10:37-0400 Heart rate 50 /min Dr. Marycarmen Rodriguez Work Phone: [facility] Work Phone: 09-16-2021 10:37-0400 Respiratory rate 18 /min Dr. Marycarmen Rodriguez Work Phone: [facility] Work Phone: 09-16-2021 10:37-0400 Systolic blood pressure 122 mm[Hg] Dr. Marycarmen Rodriguez Work Phone: [facility] Work Phone: 08-01-2021 10:02-0400 Body mass index (BMI) [Ratio] 35.7 kg/m2 Dr. Marycarmen Rodriguez Work Phone: [facility] Work Phone: 08-01-2021 10:02-0400 Body weight 109.[address] Marycarmen Rodriguez Work Phone: [facility] Work Phone: 08-01-2021 10:02-0400 Diastolic blood pressure 81 mm[Hg] Dr. Marycarmen Rodriguez Work Phone: [facility] Work Phone: 08-01-2021 10:02-0400 Heart rate 59 /min Dr. Marycarmen Rodriguez Work Phone: [facility] Work Phone: 08-01-2021 10:02-0400 Respiratory rate 18 /min Dr. Marycarmen Rodriguez Work Phone: [facility] Work Phone: 08-01-2021 10:02-0400 SaO2% (BldA) [Mass fraction] 97 % Dr. Marycarmen Rodriguez Work Phone: [facility] Work Phone: 08-01-2021 10:02-0400 Systolic blood pressure 133 mm[Hg] Dr. Marycarmen Rodriguez Work Phone: [facility] Work Phone: 08-01-2021 10:02-0400 Body height 175.[address] Marycarmen Rodriguez Work Phone: [facility] Work Phone: 08-01-2021 10:02-0400 Body mass index (BMI) [Ratio] 35.7 kg/m2 Dr. Marycarmen Rodriguez Work Phone: [facility] Work Phone: 08-01-2021 10:02-0400 Body weight 109.[address] Marycarmen Rodriguez Work Phone: [facility] Work Phone: 08-01-2021 10:02-0400 Diastolic blood pressure 81 mm[Hg] Dr. Marycarmen Rodriguez Work Phone: [facility] Work Phone: 08-01-2021 10:02-0400 Heart rate 59 /min Dr. Marycarmen Rodriguez Work Phone: [facility] Work Phone: 08-01-2021 10:02-0400 Respiratory rate 18 /min Dr. Marycarmen Rodriguez Work Phone: [facility] Work Phone: 08-01-2021 10:02-0400 SaO2% (BldA) [Mass fraction] 97 % Dr. Marycarmen Rodriguez Work Phone: [facility] Work Phone: 08-01-2021 10:02-0400 Systolic blood pressure 133 mm[Hg] Dr. Marycarmen Rodriguez Work Phone: [facility] Work Phone: 06-10-2021 18:38-0500 Diastolic blood pressure 75 mm[Hg] Dr. Marycarmen Rodriguez Work Phone: [facility] Work Phone: 06-10-2021 18:38-0500 Heart rate 57 /min Dr. Marycarmen Rodriguez Work Phone: [facility] Work Phone: 06-10-2021 18:38-0500 Respiratory rate 14 /min Dr. Marycarmen Rodriguez Work Phone: [facility] Work Phone: 06-10-2021 18:38-0500 SaO2% (BldA) [Mass fraction] 96 % Dr. Marycarmen Rodriguez Work Phone: [facility] Work Phone: 06-10-2021 18:38-0500 Systolic blood pressure 121 mm[Hg] Dr. Marycarmen Rodriguez Work Phone: [facility] Work Phone: 06-10-2021 13:36-0500 Body mass index (BMI) [Ratio] 34 kg/m2 Dr. Marycarmen Rodriguez Work Phone: [facility] Work Phone: 06-10-2021 13:36-0500 Body temperature 97 [degF] Dr. Marycarmen Rodriguez Work Phone: [facility] Work Phone: 06-10-2021 13:36-0500 Body weight 104.[address] Marycarmen Rodriguez Work Phone: [facility] Work Phone: 05-19-2021 16:55-0500 Respiratory rate 16 /min Dr. Marycarmen Rodriguez Work Phone: [facility] Work Phone: 05-19-2021 14:43-0500 Body temperature 96.5 [degF] Dr. Marycarmen Rodriguez Work Phone: [facility] Work Phone: 05-19-2021 14:43-0500 Diastolic blood pressure 94 mm[Hg] Dr. Marycarmen Rodriguez Work Phone: [facility] Work Phone: 05-19-2021 14:43-0500 Heart rate 63 /min Dr. Marycarmen Rodriguez Work Phone: [facility] Work Phone: 05-19-2021 14:43-0500 SaO2% (BldA) [Mass fraction] 99 % Dr. Marycarmen Rodriguez Work Phone: [facility] Work Phone: 05-19-2021 14:43-0500 Systolic blood pressure 172 mm[Hg] Dr. Marycarmen Rodriguez Work Phone: [facility] Work Phone: 05-19-2021 14:42-0500 Body mass index (BMI) [Ratio] 34 kg/m2 Dr. Marycarmen Rodriguez Work Phone: [facility] Work Phone: 05-19-2021 14:42-0500 Body weight 104.[address] Marycarmen Rodriguez Work Phone: [facility] Work Phone: 12-26-2020 10:29-0400 Diastolic blood pressure 76 mm[Hg] Eladio Ingram MD Work Phone: [facility] 12-26-2020 10:29-0400 Systolic blood pressure 141 mm[Hg] Eladio Ingram MD Work Phone: [facility] 12-26-2020 10:24-0400 Body height 175.3 cm Eladio Ingram MD Work Phone: [facility] 12-26-2020 10:24-0400 Body mass index (BMI) [Ratio] 33.67 kg/m2 Eladio Ingram MD Work Phone: [facility] 12-26-2020 10:24-0400 Body weight 103.42 kg Eladio Ingram MD Work Phone: [facility] 12-26-2020 10:24-0400 Heart rate 59 /min Eladio Ingram MD Work Phone: [facility] 12-26-2020 10:24-0400 SaO2% (BldA) [Mass fraction] 95 % Eladio Ingram MD Work Phone: [facility] 10-09-2020 10:53-0400 Diastolic blood pressure 72 mm[Hg] Fernanda Acuña CNP Work Phone: [facility] 10-09-2020 10:53-0400 Systolic blood pressure 134 mm[Hg] Fernanda Acuña PATROL INSPECTOR Work Phone: [facility] 10-09-2020 09:59-0400 Body mass index (BMI) [Ratio] 34.6 kg/m2 Fernanda Acuña CNP Work Phone: [facility] 10-09-2020 09:59-0400 Body weight 106.28 kg Fernanda Acuña CNP Work Phone: [facility] 10-09-2020 09:59-0400 Heart rate 58 /min Fernanda Acuña CNP Work Phone: [facility] 10-09-2020 09:59-0400 Respiratory rate 16 /min Fernanda Acuña CNP Work Phone: [facility] 10-09-2020 09:59-0400 SaO2% (BldA) [Mass fraction] 94 % Fernanda Acuña CNP Work Phone: [facility] 12-17-2016 11:21-0400 BMI (Body Mass Index) 32.99 kg/m2 Eladio Hameedbayron [facility] Work Phone: 12-17-2016 11:21-0400 BP Diastolic 82 mm[Hg] Eladio Ingram [facility] Work Phone: 12-17-2016 11:21-0400 BP Systolic 150 mm[Hg] Eladio Hameedbayron [facility] Work Phone: 12-17-2016 11:21-0400 Height 175.3 cm Ealdio Ingram [facility] Work Phone: 12-17-2016 11:21-0400 Pulse (Heart Rate) 70 /min Eladio Davbayorn [facility] Work Phone: 12-17-2016 11:21-0400 Pulse Oximetry 97 % Eladio Ingram [facility] Work Phone: 12-17-2016 11:21-0400 Weight 101.33 kg Eladio Ingram [facility] Work Phone: Encounters Encounter Date Encounter Type Care Provider Facility Start: 12-25-2024 ambulatory [facility] [place] [facility] [place]: 12-21-2024 ambulatory Boyd SWAIN Fa cility:[facility] Start: 12-20-2024 End: 12-20-2024 Emergency department patient visit Jody Servin Facility:[facility] Start: 12-20-2024 ambulatory Marycarmen Rodriguez Facility: [facility] Start: 12-18-2024 ambulatory Boyd Pittman cility:[facility] Start: 12-17-2024 Dr. Marycarmen collins DO -[facility] Work Phone: Start: 12-16-2024 Dr. Marycarmen collins DO -[facility] Work Phone: Start: 12-16-2024 Dr. Lance Rodriguez MD -[facility] Start: 12-15-2024 End: 12-17-2024 Evaluation and management of inpatient Dr. Marycarmen Rodriguez DO Work Phone: -Progressive Care Unit Start: 12-15-2024 ambulatory Marycarmen Rodriguez [place] [facility] Start: 12-15-2024 End: 12-17-2024 Dr. Marycarmen Marlow DO -[facility] Work Phone: Start: 12-13-2024 ambulatory Lupetesha SWAIN Zain cility:[facility] Start: 12-13-2024 Boyd Rock MD [facility] Start: 12-12-2024 End: 12-12-[address] Marycarmen Rodriguez DO Work Phone: -Laboratory Start: 12-12-2024 End: 12-12-2024 Gustabo Pérez [employer] -Laboratory Work Phone: Start: 12-12-2024 End: 12-12-2024 Gustabo Pérez [employer] -[facility] Work Phone: Start: 12-12-2024 End: 12-12-[address] Marycarmen Rodriguez DO Work Phone: -[facility] Start: 12-12-2024 End: 12-12-2024 ambulatory Gustabo Pérez NP Facility:[facility] Start: 12-08-2024 Dr. Alex Sanon MD -[facility] Work Phone: Start: 12-07-2024 End: 12-08-[address] Marycarmen Rodriguez DO Work Phone: -Progressive Care Unit Start: 12-07-2024 End: 12-08-2024 ambulatory Shaan Santos Facility:[facility] Start: 12-07-2024 End: 12-08-2024 Dr. Shaan Santos [facility] Work Phone: Start: 12-06-2024 End: 12-06-2024 Dr. Marcin Araujo MD -Pulmonary Services/Neurology Work Phone: Start: 12-06-2024 End: 12-06-[address] Marycarmen Rodriguez DO Work Phone: -Pulmonary Services/Neurology Start: 12-06-2024 Dr. Alex Sanon MD -[facility] Work Phone: Start: 12-05-2024 Dr. Alex Sanon MD -[facility] Work Phone: Start: 12-05-[address] Marycarmen vera DO Work Phone: [facility] Start: 12-05-2024 Dr. Marcin Araujo MD [facility] Start: 12-04-2024 Dr. Abraham Ridley [facility] Work Phone: Start: 12-04-2024 Dr. Marcin Araujo MD [facility] Start: 12-03-2024 Dr. Ramonita Herron MD [facility] [facility] Inpatient Physicians Work Phone: Start: 12-03-2024 Dr. Marcin Araujo MD [facility] Start: 12-03-2024 ambulatory Abraham Cool ility:[facility] Start: 12-03-2024 End: 12-06-2024 Evaluation and management of inpatient Dr. Marycarmen Rodriguez DO Work Phone: -Progressive Care Unit Start: 12-03-2024 End: 12-06-2024 Dr. Alex Sanon MD -Progressive Care Unit Work Phone: Start: 12-02-2024 Dr. Marcin Araujo MD -[facility] Start: 12-02-2024 ambulatory Abraham Ridley Fac ility:[facility] Start: 12-02-2024 Evaluation and manag ement of inpatient Dr. Marycarmen Rodriguez DO Work Phone: -Intensive Care Unit Start: 12-02-2024 Dr. Abraham Ridley DO -Intensive Care Unit Work Phone: Start: 12-02-2024 Dr. Nickie Danielson DO [facility] Inpatient Physicians Work Phone: Start: 12-01-2024 Dr. Marcin Araujo MD -[facility] Start: 11-30-2024 End: 12-02-2024 Evaluation and management of inpatient Dr. Marycarmen Rodriguez DO Work Phone: -Intensive Care Unit Start: 11-30-2024 ambulatory Jose Jose Armando Facility:[facility] Start: 11-30-2024 End: 12-02-2024 Dr. Abraham Ridley DO -Intensive Care Unit Work Phone: Start: 11-27-2024 Dr. Jose Hay MD -[facility] Start: 11-27-[address] Marycarmne vera DO Work Phone: -[facility] Start: 11-27-2024 End: 11-28-2024 ambulatory Jose [facility] Facility:[facility] Start: 11-27-2024 End: 11-28-[address] Marycarmen Rodriguez DO Work Phone: -Progressive Care Unit Start: 11-27-2024 End: 11-28-2024 Dr. Jose Hay MD -Progressive Care Unit Work Phone: Start: 11-26-2024 End: 11-26-2024 Dr. Marycarmen Rodriguez DO Work Phone: -Emergency Department Work Phone: Start: 11-26-2024 End: 11-26-2024 Emergency department patient visit Dr. Marycarmen Rodriguez DO Work Phone: -Emergency Department Start: 11-22-2024 End: 11-22-[address] Marycarmen Rodriguez DO Work Phone: -Radiology [facility] Start: 11-22-2024 End: 11-22-2024 Gustabo Pérez [employer]C -Radiology [facility] Work Phone: Start: 11-22-2024 End: 11-22-2024 Gustabo Pérez [employer]-C -[place] [facility] Work Phone: Start: 11-22-2024 End: 11-22-[address] Marycarmen Rodriguez DO Work Phone: -[place] Start: 11-22-2024 End: 11-22-2024 ambulatory Gustabo Pérez [employer] Facility:[facility] Start: 11-20-2024 End: 11-20-[address] Marycarmen Rodriguez DO Work Phone: -Radiology [facility] Start: 11-20-2024 End: 11-20-2024 Dr. Brooks Carpenter MD -Radiology [facility] Work Phone: Start: 11-20-2024 End: 11-20-2024 ambulatory Marycarmen Rodriguez Facility:[facility] Start: 11-13-2024 ambulatory Jose Hay Facility: [place] Start: 11-13-2024 Non-patient / Non-visit Dr. Jose colon MD -[facility] Start: 11-13-2024 Dr. Jose Hay MD -[facility] Start: 11-10-2024 End: 11-10-[address] Marycarmen Rodriguez DO Work Phone: -Sleep Lab Start: 11-10-2024 End: 11-10-2024 Patient encounter procedure [employer] Maren Olivas -Sleep Lab Work Phone: Start: 11-10-2024 End: 11-10-2024 [employer]IM[employer] Maren Olivas -Sleep Lab Work Phone: Start: 11-10-2024 ambulatory Gustabo Pérez [employer] [place] [facility] Start: 11-10-2024 Non-patient / Non-visit Dr. Lance pereira MD -[facility] Work Phone: Start: 11-10-2024 Dr. Lance Rodriguez MD -[facility] Work Phone: Start: 11-10-2024 End: 11-10-[address] Marycarmen Rodriguez DO Work Phone: -Cardiovascular Services Start: 11-10-2024 End: 11-10-2024 Patient encounter procedure Gustabo Pérez [employer]-C -Cardiovascular Services Work Phone: Start: 11-10-2024 End: 11-10-2024 Gustabo Pérez [employer]-C -Cardiovascular Services Work Phone: Start: 11-09-2024 End: 11-10-[address] Marycarmen Rodriguez DO Work Phone: -Laboratory Ritesh Calvillo [facility] Start: 11-09-2024 End: 11-09-[address] Marycarmen Rodriguez DO -Laboratory Ritesh Calvillo [facility] Start: 11-09-2024 End: 11-09-2024 Dr. 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 Marycarmen Rodriguez DO Work Phone: -[facility] Start: 10-26-2024 End: 10-26-[address] Marycarmen Rodriguez DO Work Phone: -Sleep Lab Start: 10-26-2024 End: 10-26-2024 Patient encounter procedure Marni Horn [employer] -Sleep Lab Work Phone: Start: 10-26-2024 End: 10-26-2024 Marni Horn [employer]-C -Sleep Lab Work Phone: Start: 10-25-2024 End: 10-25-2024 Patient encounter procedure Gustabo Pérez [employer]-C -[facility] Work Phone: Start: 10-25-2024 End: 10-25-2024 Gustabo Murray Beto [employer]-C -[facility] Work Phone: Start: 10-25-2024 End: 10-26-[address] Marycarmen Rodriguez DO Work Phone: [facility] Work Phone: Start: 10-18-2024 End: 10-18-[address] Marycarmen Rodriguez DO Work Phone: [facility] Work Phone: Start: 10-18-2024 End: 10-18-2024 Patient encounter procedure Marni Horn [employer]-C -Sleep Lab Work Phone: Start: 10-18-2024 End: 10-18-2024 Marni Horn [employer]-C -Sleep Lab Work Phone: Start: 10-18-2024 End: 10-18-[address] Marycarmen Rodriguez DO Work Phone: [facility] Work Phone: Start: 10-18-2024 End: 10-18-[address] Brooks Carpenter MD -Laboratory Work Phone: Start: 10-18-2024 End: 10-18-2024 Dr. Brooks Carpenter MD -Laboratory Work Phone: Start: 10-18-2024 End: 10-18-2024 ambulatory Marni Horn [employer] Facility:[facility] Start: 09-29-2024 End: 09-29-[address] Marycarmen Rodriguez DO Work Phone: [facility] Work Phone: Start: 09-29-2024 End: 09-29-[address] Marycarmen Rodriguez DO -Laboratory [place] Work Phone: Start: 09-29-2024 End: 09-29-2024 Dr. Marycarmen Rodriguez DO -Laboratory [place] Work Phone: Start: 09-29-2024 End: 09-29-2024 ambulatory Marycarmen Rodriguez Facility:[facility] Start: 09-22-2024 End: 09-22-[address] Marycarmen Rodriguez DO Work Phone: [facility] Work Phone: Start: 09-22-2024 End: 09-22-2024 Patient encounter procedure Marni Horn [employer]-C -Sleep Lab Work Phone: Start: 09-22-2024 End: 09-22-2024 Marni Horn [employer]WORK[employer]IMAL-C -Sleep Lab Work Phone: Start: 09-22-2024 End: 09-22-2024 ambulatory Marni Horn [employer] Facility:[facility] Start: 09-20-2024 End: 09-20-[address] Marycarmen Rodriguez DO Work Phone: [facility] Work Phone: Start: 09-20-2024 End: 09-20-2024 Patient encounter procedure [employer] Maren Olivas -Laboratory Work Phone: Start: 09-20-2024 End: 09-20-2024 [employer]ARMWORKER ANIMAL Maren Olivas -Laboratory Work Phone: Start: 09-20-2024 End: 09-20-2024 Patient encounter procedure [employer]IMAL Maren Olivas -[facility] Work Phone: Start: 09-20-2024 End: 09-20-2024 FARMWORKER ANIMAL Maren Olivas [facility] Pul[facility] Medicine Work Phone: Start: 09-20-2024 End: 09-20-[address] Marycarmen Rodriguez DO Work Phone: [facility] Work Phone: Start: 09-20-2024 End: 09-20-2024 ambulatory Maren Olivas Facility:[facility] Start: 08-03-2024 End: 08-03-[address] Marycarmen Rodriguez DO Work Phone: [facility] Work Phone: Start: 08-03-2024 End: 08-03-2024 Patient encounter procedure Marni Horn [employer]-C -Sleep Lab Work Phone: Start: 08-03-2024 End: 08-03-2024 Marni Horn [employer]WORK[employer]IMAL-C -Sleep Lab Work Phone: Start: 08-03-2024 End: 08-03-2024 ambulatory Marni Horn NP Facility:[facility] Start: 07-18-2024 ambulatory Marni Horn NP Fac ility:[facility] Start: 07-18-2024 Non-patient / Non-visit Dr. Zen Olguin own DO -[facility] Start: 07-18-2024 End: 07-18-[address] Marycarmen oRdriguez DO Work Phone: [facility] Work Phone: Start: 07-18-2024 End: 07-18-2024 Patient encounter procedure Marni Horn [employer]-C -Pulmonary Services/Neurology Work Phone: Start: 07-17-2024 Non-patient / Non-visit Dr. Zen Olguin own DO -[facility] Start: 07-17-2024 End: 07-18-[address] Marycarmen Rodriguez DO Work Phone: [facility] Work Phone: Start: 07-17-2024 End: 07-17-2024 Patient encounter procedure Marni Horn NP-C -Sleep Lab Work Phone: Start: 07-17-2024 End: 07-17-2024 ambulatory [facility] Facility:[facility] Start: 07-07-2024 End: 07-07-[address] Marycarmen Rodriguez DO Work Phone: [facility] Work Phone: Start: 07-07-2024 End: 07-07-2024 Patient encounter procedure Marni POOL -Sleep Lab Work Phone: Start: 07-07-2024 End: 07-07-2024 ambulatory [facility] Facility:[facility] Start: 07-03-2024 End: 07-03-2024 Patient encounter procedure Marni POOL -[facility] Work Phone: Start: 07-03-2024 End: 07-03-2024 ambulatory Marycarmen Jennifer Facility:[facility] Start: 06-30-2024 End: 06-30-[address] Marycarmen Rodriguez DO Work Phone: [facility] Work Phone: Start: 06-30-2024 End: 06-30-[address] Marycarmen Rodriguez DO -Laboratory, [facility] Start: 06-30-2024 End: 06-30-2024 ambulatory [facility] Facility:[facility] Start: 04-17-2024 End: 04-17-2024 Patient encounter procedure Gustabo POOL -[facility] Work Phone: Start: 04-17-2024 End: 04-17-2024 ambulatory [facility] Start: 04-17-2024 End: 04-17-2024 ambulatory [facility] Facility:[facility] Start: 03-27-2024 End: 03-27-[address] Jose Hay MD -[facility] Work Phone: Start: 03-27-2024 End: 03-27-2024 ambulatory [facility] Facility:[facility] Start: 03-23-2024 End: 03-23-[address] [facility]armen Rodriguez [facility] Start: 03-23-2024 End: 03-23-2024 ambulatory Marycarmen Rodriguez Facility:[facility] Start: 03-20-2024 End: 03-20-[address] Jose Hay MD -[place] [facility] Work Phone: Start: 03-20-2024 End: 03-20-2024 ambulatory Jose Hay [facility] Start: 05-07-2023 End: 05-07-2023 ambulatory [facility] Work Phone: Start: 05-07-2023 End: 05-07-2023 Patient encounter procedure [facility] Start: 12-29-2022 Non-patient / Non-visit Dr. Ap Rodriguez Work Phone: [facility] [place] Work Phone: Start: 12-28-2022 Non-patient / Non-visit Dr. Ap Rodriguez Work Phone: [facility] Start: 12-28-2022 End: 12-28-[address] Marycarmen Rodriguez Work Phone: [facility] Work Phone: Start: 12-28-2022 End: 12-28-[address] Marycarmen Rodriguez Work Phone: [facility]-Cardiovascul ar Services Work Phone: Start: 12-21-2022 End: 12-21-2022 Admission to same day surgery center Dr. Marycarmen Rodriguez Work Phone: [facility]-[employer]rentice/Special Procedures Work Phone: Start: 12-21-2022 End: 12-21-[address] Marycarmen Rodriguez Work Phone: [facility] Work Phone: Start: 12-15-2022 End: 12-15-[address] Marycarmen Rodriguez Work Phone: [facility] Work Phone: Start: 12-15-2022 End: 12-15-[address] Marycarmen Rodriguez Work Phone: [facility]-Laboratory Work Phone: Start: 12-15-2022 End: 12-15-[address] Marycarmen Rodriguez Work Phone: [facility] [facility] Work Phone: Start: 10-16-2022 End: 10-16-2022 ambulatory Marycarmen Jennifer [facility] Work Phone: Start: 10-16-2022 End: 10-16-2022 Patient encounter procedure Marycarmen Rodriguez [facility]-Pulmonary Services/Neurology Start: 10-13-2022 End: 10-13-2022 ambulatory Marycarmen Rodriguez [facility] Work Phone: Start: 10-13-2022 End: 10-13-2022 Patient encounter procedure Marycarmen SWAIN [facility] Start: 09-21-2022 Non-patient / Non-visit Marycarmen gifford [facility] Inpatient Physicians Start: 09-20-2022 Non-patient / Non-visit Marycarmen gifford [facility] Inpatient Physicians Start: 09-19-2022 Non-patient / Non-visit Marycarmen gifford [facility] Inpatient Physicians Start: 09-18-2022 Non-patient / Non-visit Marycarmen gifford [facility] Start: 09-17-2022 End: 09-17-2022 Non-patient / Non-visit Marycarmen SWAIN [facility] Inpatient Physicians Start: 09-17-2022 End: 09-21-2022 Evaluation and management of inpatient Marycarmen Rodriguez [facility]-Progressive Care Unit Start: 09-09-2022 Non-patient / Non-visit Marycarmen gifford [facility] Start: 09-01-2022 Non-patient / Non-visit [facility] Start: 08-31-2022 End: 08-31-2022 Non-patient / Non-visit Marycarmen Rodriguez [facility] Start: 08-31-2022 Non-patient / Non-visit Marycarmen gifford [facility] Start: 08-31-2022 End: 09-01-2022 Evaluation and management of inpatient Marycarmen Jennifer [facility] Start: 08-31-2022 End: 09-01-2022 observation encounter Marycarmen [facility] Work Phone: Start: 08-19-2022 End: 08-19-2022 ambulatory Marycarmen [facility] Work Phone: Start: 08-19-2022 End: 08-19-2022 Patient encounter procedure Marycarmen Jennifer [facility] Start: 08-11-2022 Non-patient / Non-visit Marycarmen gifford [facility] Start: 06-11-2022 End: 06-11-[address] Marycarmen Rodriguez Work Phone: [facility] Work Phone: Start: 06-11-2022 End: 06-11-[address] Marycarmen Rodriguez Work Phone: [facility] Start: 04-21-2022 Non-patient / Non-visit [facility] Ap Rodriguez Work Phone: [facility] Start: 04-21-2022 End: 04-21-[address] Marycarmen Rodriguez Work Phone: [facility] Work Phone: Start: 04-21-2022 End: 04-21-[address] Marycarmen Rodriguez Work Phone: [facility]-Cardiovascul ar Services Start: 04-16-2022 End: 04-16-[address] Marycarmen Rodriguez [facility] Start: 04-14-2022 End: 04-14-[address] Marycarmen Rodriguez Work Phone: [facility] Work Phone: Start: 04-14-2022 End: 04-14-[address] Marycarmen Rodriguez [facility] Start: 04-14-2022 End: 04-14-[address] Marycarmen Rodriguez Work Phone: [facility] Start: 03-27-2022 End: 03-27-[address] Marycarmen Rodriguez Work Phone: [facility] Start: 01-20-2022 End: 01-20-[address] Marycarmen Rodriguez Work Phone: [facility] Start: 01-07-2022 End: 01-07-[address] Marycarmen Rodriguez Work Phone[facility] Start: 11-27-2021 Non-patient / Non-visit Dr. Ap Rodriguez Work Phone: [facility] Start: 11-26-2021 End: 11-26-[address] Marycarmen Rodriguez Work Phone[facility] Start: 11-21-2021 End: 11-21-[address] Marycarmen Rodriguez Work Phone: [facility] Start: 11-16-2021 End: 11-16-2021 Emergency department patient visit Dr. Marycarmen Rodriguez Work Phone: [facility]-Emergency Department Start: 10-28-2021 End: 10-28-[address] Marycarmen Rodriguez Work Phone: [facility] Start: 09-16-2021 End: 09-16-[address] Marycarmen Rodriguez Work Phone: [facility]-Radiology, [facility] Start: 09-16-2021 End: 09-16-[address] Marycarmen Rodriguez Work Phone: [facility] Start: 08-15-2021 Non-patient / Non-visit Dr. Ap Rdoriguez Work Phone: [facility] Start: 08-15-2021 Non-patient / Non-visit Dr. Ap Rodriguez Work Phone: [facility] Start: 08-15-2021 End: 08-15-[address] Marycarmen Rodriguez Work Phone: [facility]-Cardiovascul ar Services Start: 08-01-2021 End: 08-01-[address] Marycarmen Rodriguez Work Phone: [facility] Start: 06-10-2021 End: 06-10-2021 Emergency department patient visit Dr. Marycarmen Rodriguez Work Phone: [facility]-Emergency Department Start: 05-19-2021 End: 05-19-2021 Emergency department patient visit Dr. Marycarmen Rodriguez Work Phone: [facility]-Emergency Department Start: 05-16-2021 End: 05-16-[address] 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) (Primary Dx) Start: 12-31-2020 Admission to [facility] Eladio Ingram MD Work Phone: [employer] Office Comment on above: Chest pain, unspecif ied type (Primary Dx) Start: 12-26-2020 End: 12-30-2020 Orders Only Justa [facility]uceda RN [facility] Start: 12-26-2020 End: 12-26-2020 Office outpatient visit 25 minutes Marycarmen Padron [facility] DO Work Phone: [employer] Office Comment on above: Essential hypertensi on (Primary Dx); Atherosclerosis of [place] coronary artery with angina pectoris, unspecified whether [place] or transplanted heart (HCC); Coronary artery disease involving [place] coronary artery of [place] heart with angina pectoris (HCC); Mixed hyperlipidemia Start: 12-18-2020 ambulatory [facility] y:[facility] Start: 10-15-2020 End: 10-16-2020 ambulatory [facility] Start: 10-15-2020 End: 10-15-2020 Subsequent hospital visit by physician Eladio Ingram MD Work Phone: [facility] Phys[facility] Comment on above: Arrived Start: 10-10-2020 ambulatory FERNANDA ACUÑA [facility] Ambulatory Start: 10-09-2020 End: 10-09-2020 Orders Only Fernanda Acuña PATROL INSPECTOR Work Phone: [employer] Office Comment on above: DEAN (dyspnea on exer tion) (Primary Dx) Start: 10-09-2020 End: 10-09-2020 Office outpatient new 45 minutes Fernanda Rodasnn Leticiajennifer PAPPAS Work Phone: [facility] Office Comment on above: DEAN (dyspnea on exer tion); Essential hypertension; Type 2 diabetes mellitus without complication, without long-term current use of insulin (HCC); MATTHEW (obstructive sleep apnea); Coronary artery disease involving [place] coronary artery of [place] heart without angina pectoris Start: 10-04-2020 End: 10-04-2020 Orders Only Deisi March RN [facility] Office Comment on above: Shortness of breath (Primary Dx) Start: 12-17-2016 Office/outpatient vi sit, est, level 4 Eladio Ingram Work Phone: [facility] Start: 11-28-2016 End: 11-28-2016 Patient encounter procedure [facility] Procedures Date Procedure Procedure Detail Performing Clinician Start: 12-16-2024 Blood count smear mc rscp w/mnl difrntl wbc count Dr. Marycarmen Rodriguez DO Work Phone: Start: 12-16-[address] Marycarmen Rodriguez DO Work Phone: Start: 12-16-2024 Mean corpuscular hemoglobin concentration determination Dr. Marycarmen Rodriguez DO Work Phone: Start: 12-16-2024 Nucleated red blood cell count procedure Dr. Marycarmen Rodriguez DO Work Phone: Start: 12-16-2024 Platelet mean volume determination Dr. Marycarmen Rodriguez DO Work Phone: Start: 12-15-2024 Plain chest X-ray Dr. Tricia Rodriguez DO Work Phone: Start: 12-15-2024 Calculation of international normalized ratio Dr. Marycarmen Rodriguez DO Work Phone: Start: 12-13-2024 Blood count smear mc rscp w/mnl difrntl wbc count Dr. Marycarmen Rodriguez DO Work Phone: Start: 12-13-2024 Mean corpuscular hemoglobin concentration determination Dr. Marycarmen Rodriguez DO Work Phone: Start: 12-13-2024 Nucleated red blood cell count procedure Dr. Marycarmen Rodriguez DO Work Phone: Start: 12-13-2024 Platelet mean volume determination Dr. Marycarmen Rodriguez DO Work Phone: Start: 12-08-2024 Blood count smear mc rscp w/mnl difrntl wbc count Dr. Marycarmen Rodriguez DO Work Phone: Start: 12-08-[address] Marycarmen Rodriguez DO Work Phone: Start: 12-08-2024 Mean corpuscular hemoglobin concentration determination Dr. Marycarmen Rodriguez DO Work Phone: Start: 12-08-2024 Nucleated red blood cell count procedure Dr. Marycarmen Rodriguez DO Work Phone: Start: 12-08-2024 Platelet mean volume determination Dr. Marycarmen Rodriguez DO Work Phone: Start: 12-07-2024 Pulmonary ventilatio n perfusion study Dr. Marycarmen Rodrigeuz DO Work Phone: Start: 12-07-2024 Blood count smear mc rscp w/mnl difrntl wbc count Dr. Marycarmen Rodriguez DO Work Phone: Start: 12-07-2024 D-dimer assay, quantitative Dr. Marycarmen Rodriguez DO Work Phone: Start: 12-07-[address] Marycarmen Rodriguez DO Work Phone: Start: 12-07-2024 Mean corpuscular hemoglobin concentration determination Dr. Marycarmen Rodriguez DO Work Phone: Start: 12-07-2024 Nucleated red blood cell count procedure Dr. Marycarmen Rodriguez DO Work Phone: Start: 12-07-2024 Platelet mean volume determination Dr. Marycarmen Rodriguez DO Work Phone: Start: 12-07-2024 X-ray of chest, PA a nd lateral views Dr. Marycarmen Rodriguez DO Work Phone: Start: 12-07-2024 Blood count smear mc rscp w/mnl difrntl wbc count Dr. Marycarmen Rodriguez DO Work Phone: Start: 12-07-2024 Mean corpuscular hemoglobin concentration determination Dr. Marycarmen Rodriguez DO Work Phone: Start: 12-07-2024 Nucleated red blood cell count procedure Dr. Marycarmen Rodriguez DO Work Phone: Start: 12-07-2024 Platelet mean volume determination Dr. Marycarmen Rodriguez DO Work Phone: Start: 12-07-2024 Total cholesterol:HD L ratio measurement Dr. Marycarmen Rodriguez DO Work Phone: Start: 12-06-2024 Blood count smear mc rscp w/mnl difrntl wbc count Dr. Marycarmen Rodriguez DO Work Phone: Start: 12-06-2024 Mean corpuscular hemoglobin concentration determination Dr. Marycarmen Rodriguez DO Work Phone: Start: 12-06-2024 Nucleated red blood cell count procedure Dr. Marycarmen Rodriguez DO Work Phone: Start: 12-06-2024 Platelet mean volume determination Dr. Marycarmen Rodriguez DO Work Phone: Start: 12-06-[address] Marycarmen Rodriguez DO Work Phone: Start: 12-06-2024 Serum inorganic phos phate measurement Dr. Marycarmen Rodriguez DO Work Phone: Start: 12-05-[address] Marycarmen Rodriguez DO Work Phone: Start: 12-04-2024 Blood count smear mc rscp w/mnl difrntl wbc count Dr. Marycarmen Rodriguez DO Work Phone: Start: 12-04-2024 Mean corpuscular hemoglobin concentration determination Dr. Marycarmen Rodriguez DO Work Phone: Start: 12-04-2024 Nucleated red blood cell count procedure Dr. Marycarmen Rodriguez DO Work Phone: Start: 12-04-2024 Platelet mean volume determination Dr. Marycarmen Rodriguez DO Work Phone: Start: 12-03-2024 Serum inorganic phos phate measurement Dr. Marycarmen Rodriguez DO Work Phone: Start: 12-03-2024 Urine microscopy: re d cells Dr. Marycarmen Rodriguez DO Work Phone: Start: 12-03-2024 Urnls dip stick/tabl et reagent auto microscopy Dr. Marycarmen Rodriguez DO Work Phone: Start: 12-02-2024 Coagulation time, activated Dr. Marycarmen Rodriguez DO [...] Work Phone: Comment on above: Test Ordered: [id number] Screen, Urine Negative ng/mL UI Reference Range: Tmkumx=585Htmxtmzdbtj test includes Amphetamine and Methamphetamine.Barbiturates Negative ng/mL UI Reference Range: Gpunhu=372Xgouollaqancayp Negative ng/mL UI Reference Range: Vfutbv=792Amipgmg (Metab.), Urine Negative ng/mL UI Reference Range: Yjgdaj=474Hglffyj Note: ng/mL UI See Final Results Reference Range: Ttnuss=718Pyrysx test includes Codeine, Morphine, Hydromorphone, Hydrocodone.Opiates Positive [A ] UI Reference Range: Xhkjpd=098Cewxmn test includes Codeine, Morphine, Hydromorphone, Hydrocodone.Codeine Negative UI Reference Range: Lmpmxk=218Trnrronk Negative UI Reference Range: Tnqvob=325Ovjghqozeeapd Negative UI Reference Range: Ndmfco=285Pxfxwebrhch Positive [A ] UI Reference Range: .Hydrocodone Conf, MS, UR 349 ng/mL UI Reference Range: Hhuhvi=7530-Pqfeubscbphvkq, Urine Negative ng/mL UI Reference Range: Cutoff=10Oxycodone/Oxymorphone, Urine Negative ng/mL UI Reference Range: Foiemv=389Qlmg includes Oxycodone and OxymorphonePCP, Urine Negative ng/mL UI Reference Range: Cutoff=25Methadone Screen, Urine Negative ng/mL UI Reference Range: Psesup=146Bjwaihlhkpqa, Urine Negative ng/mL UI Reference Range: Bmytvv=758Rrtwstvb, Urine Negative ng/mL UI Reference Range: Cutoff=2.0Test includes Fentanyl and NorfentanylThis test was developed and its performance characteristicsdetermined by [facility]. It has not been cleared orapproved by the Food and Drug Administration.Tramadol Negative ng/mL UI Reference Range: Zbpsdh=500Ljeubjpxdnizk, Urine Negative ng/mL UI Reference Range: Cutoff=10Creatinine, Urine 36.9 mg/dL UI Reference Range: 20.0-300.0pH, Urine 6.1 UI Reference Range: 4.5-8.9Performed at: - [facility] [id number] [place], [place] [id number] Director: Erik Wallis PhD, Phone: [phone] at: - [facility] [address] [id number] Director: Bharath Hawthorne PhD, Phone: [phone] Start: 10-18-[address] Marycarmen [...] Phone: Start: 09-21-2022 Viral antigen assay Matilda Rodriguez OLS Start: 09-19-2022 CT of head without contrast Marycarmen ChiuJenniferdiogenes SWAIN Start: 09-19-2022 MRI of cervical spine Tricia jaylabeulah Jennifer SWAIN Start: 09-17-2022 MRI of brain without contrast Marycarmen Jennifer SWAIN Start: 09-17-2022 CT angiography of he ad and neck Marycarmen Jennifer SWAIN Start: 09-17-2022 CT of head without contrast Marycarmen SWAIN Start: 09-17-2022 Plain chest X-ray Marycarmen Jennifer SWAIN Start: 04-14-2022 Plain chest X-ray Dr. [...] w/le ast 12 lds w/i&r Fernanda Acuña PATROL INSPECTOR Work Phone: Start: 08-18-2018 History of percutane ous transluminal coronary angioplasty History of percutaneous transluminal coronary angioplasty Dr. 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 Alexandr Mcclain Start: 08-13-2017 History of placement of stent for coronary artery disease History of coronary artery stent placement Dr. 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 Procedure aborted. 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1060NGB-XGXB-Lj and Stent-Mid RCA x 2 Multi Link Mini Vision Rx Stent 4.0 x 28 mm 01/21/2006 Plan of Treatment Date Care Activity Detail Author Start: 12-17-2024 Patient discharge [facility] Start: 12-16-2024 [facility] Start: 12-15-2024 Dual pressure spontaneous ventilation support [facility] Start: 12-15-2024 Assessment of risk of venous thromboembolism [facility] Start: 12-15-2024 Care regimes management [facility] Start: 12-15-2024 Continuous pulse oximetry [facility] Start: 12-15-2024 Incentive spirometry [facility] Start: 12-15-2024 Insertion of catheter into peripheral vein [facility] Start: 12-15-2024 Measuring intake and output [facility] Start: 12-15-2024 Notification of physician [facility] Start: 12-15-2024 Providing care according to standard [facility] Start: 12-15-2024 Provision of activity privileges [facility] Start: 12-15-2024 Referral to chief legal officer [facility] Start: 12-15-2024 Referral to occupational therapist [facility] Start: 12-15-2024 Referral to service [facility] Start: 12-15-2024 Tobacco use cessation education [facility] Start: 12-15-2024 End: 12-15-2024 [facility] Start: 12-15-2024 Following clinical pathway protocol [facility] Start: 12-15-2024 Admission procedure [facility] Start: 12-15-2024 [facility] Start: 12-15-2024 Patient referral to dietitian [facility] Start: 12-08-2024 Patient discharge [facility] Start: 12-07-2024 Following clinical pathway protocol [facility] Start: 12-07-2024 Assessment of risk of venous thromboembolism [facility] Start: 12-07-2024 Care regimes management [facility] Start: 12-07-2024 Inhalation therapy procedure [facility] Start: 12-07-2024 Insertion of catheter into peripheral vein [facility] Start: 12-07-2024 Measuring intake and output [facility] Start: 12-07-2024 Notification of physician [facility] Start: 12-07-2024 Providing care according to standard [facility] Start: 12-07-2024 Provision of activity privileges [facility] Start: 12-07-2024 Referral to occupational therapist [facility] Start: 12-07-2024 Referral to service [facility] Start: 12-07-2024 End: 12-07-2024 [facility] Start: 12-07-2024 Pulmonary perfusion study [facility] Start: 12-07-2024 Verification routine [facility] Start: 12-07-2024 Admission procedure [facility] Start: 12-07-2024 Hospital admission, emergency, from emergency room, medical nature [facility] Start: 12-07-2024 [facility] Start: 12-07-2024 [facility] Start: 12-07-2024 Dual pressure spontaneous ventilation support [facility] Start: 12-06-2024 Patient discharge [facility] Start: 12-05-2024 Referral to occupational therapist [facility] Start: 12-05-2024 Referral to service [facility] Start: 12-03-2024 Electrocardiographic procedure [facility] Start: 12-03-2024 Referral to chief legal officer [facility] Start: 12-03-2024 Verification routine [facility] Start: 12-03-2024 Admission procedure [facility] Start: 12-02-2024 End: 12-02-2024 [facility] Start: 12-02-2024 Following clinical pathway protocol [facility] Start: 12-02-2024 Notification of physician [facility] Start: 12-02-2024 Patient education [facility] Start: 12-02-2024 Provision of activity privileges [facility] Start: 12-02-2024 Pulse taking [facility] Start: 12-02-2024 Taking patient vital signs [facility] Start: 12-02-2024 Wound care [facility] Start: 12-02-2024 Oxygen therapy [facility] Start: 12-02-2024 Dual pressure spontaneous ventilation support [facility] Start: 12-02-2024 End: 12-02-2024 Hospital admission, emergency, from emergency room, medical nature [facility] Start: 12-02-2024 [facility] Start: 12-02-2024 Patient discharge [facility] Start: 12-02-2024 Electrocardiographic procedure [facility] Start: 12-02-2024 Magnetic resonance angiography of head without contrast [facility] Start: 12-02-2024 Magnetic resonance angiography of neck without contrast [facility] Start: 12-02-2024 MRA Head vessels WO contrast [facility] Start: 12-02-2024 MRA Neck vessels WO contrast [facility] Start: 12-01-2024 Vital signs measurements [facility] Start: 12-01-2024 Aspiration precautions [facility] Start: 12-01-2024 Cardiac monitoring [facility] Start: 12-01-2024 Catheterization of vein [facility] Start: 12-01-2024 Consultation [facility] Start: 12-01-2024 Continuous pulse oximetry [facility] Start: 12-01-2024 Elevation of head of bed [facility] Start: 12-01-2024 Exercises [facility] Start: 12-01-2024 Notification of physician [facility] Start: 12-01-2024 Oxygen therapy [facility] Start: 12-01-2024 Patient referral to dietitian [facility] Start: 12-01-2024 Referral to occupational therapist [facility] Start: 12-01-2024 Referral to service [facility] Start: 12-01-2024 Speech therapy assessment [facility] Start: 12-01-2024 Telemedicine consultation with patient [facility] Start: 12-01-2024 Tobacco use cessation education [facility] Start: 12-01-2024 End: 12-01-2024 [facility] Start: 12-01-2024 [facility] Start: 12-01-2024 [facility] Start: 12-01-2024 Electrocardiographic procedure [facility] Start: 12-01-2024 Continuous positive airway pressure ventilation treatment [facility] Start: 12-01-2024 US Heart [facility] Start: 12-01-2024 Complete blood count [facility] Start: 11-30-2024 End: 11-30-2024 [facility] Start: 11-30-2024 Following clinical pathway protocol [facility] Start: 11-30-2024 Ambulation without limitation [facility] Start: 11-30-2024 Assessment of risk of venous thromboembolism [facility] Start: 11-30-2024 Insertion of catheter into peripheral vein [facility] Start: 11-30-2024 Measuring intake and output [facility] Start: 11-30-2024 Providing care according to standard [facility] Start: 11-30-2024 Referral to service [facility] Start: 11-30-2024 Care regimes management [facility] Start: 11-30-2024 Complete blood count [facility] Start: 11-30-2024 Elevation of head of bed [facility] Start: 11-30-2024 Admission procedure [facility] Start: 11-30-2024 Cardiac monitoring [facility] Start: 11-30-2024 Cardiac rehabilitation - phase 1 [facility] Start: 11-30-2024 Cardiac rehabilitation - phase 2 [facility] Start: 11-30-2024 Dietary regime [facility] Start: 11-30-2024 Log roll [facility] Start: 11-30-2024 End: 11-30-2024 Notification of physician [facility] Start: 11-30-2024 Oxygen therapy [facility] Start: 11-30-2024 Patient discharge [facility] Start: 11-30-2024 Provision of activity privileges [facility] Start: 11-30-2024 Pulse taking [facility] Start: 11-30-2024 Hospital admission, emergency, from emergency room, medical nature [facility] Start: 11-30-2024 Electrocardiographic procedure [facility] Start: 11-30-2024 End: 11-30-2024 [facility] Start: 11-30-2024 Partial thromboplastin time, activated [facility] Start: 11-30-2024 Prothrombin time [facility] Start: 11-28-2024 [facility] Start: 11-28-2024 Patient discharge [facility] Start: 11-28-2024 Complete blood count [facility] Start: 11-27-2024 Following clinical pathway protocol [facility] Start: 11-27-2024 Elevation of head of bed [facility] Start: 11-27-2024 Dietary regime [facility] Start: 11-27-2024 Log roll [facility] Start: 11-27-2024 Provision of activity privileges [facility] Start: 11-27-2024 End: 11-27-2024 [facility] Start: 11-27-2024 Admission procedure [facility] Start: 11-27-2024 Cardiac monitoring [facility] Start: 11-27-2024 Cardiac rehabilitation - phase 1 [facility] Start: 11-27-2024 Cardiac rehabilitation - phase 2 [facility] Start: 11-27-2024 Notification of physician [facility] Start: 11-27-2024 Oxygen therapy [facility] Start: 11-27-2024 Pulse taking [facility] Start: 11-27-2024 Continuous positive airway pressure ventilation treatment [facility] Start: 11-27-2024 Inhalation therapy procedure [facility] Start: 11-26-2024 [facility] Start: 11-26-2024 [facility] Start: 11-22-2024 Evaluation of diagnostic study results [facility] Start: 10-25-2024 Evaluation of diagnostic study results [facility] Start: 07-25-2024 Walking distance 6 minutes [facility] Start: 07-17-2024 Measurement of respiratory function [facility] Start: 12-21-2022 Patient discharge [facility] Start: 10-05-2022 Measurement of respiratory function [facility] Start: 09-21-2022 Patient discharge [facility] Start: 09-20-2022 Telepractice consultation [facility] Start: 09-18-2022 Following clinical pathway protocol [facility] Start: 09-17-2022 Aspiration precautions [facility] Start: 09-17-2022 Assessment of risk of venous thromboembolism [facility] Start: 09-17-2022 Cardiac monitoring [facility] Start: 09-17-2022 Care regimes management [facility] Start: 09-17-2022 Catheterization of vein [facility] Start: 09-17-2022 Continuous positive airway pressure ventilation treatment [facility] Start: 09-17-2022 Continuous pulse oximetry [facility] Start: 09-17-2022 Elevation of head of bed [facility] Start: 09-17-2022 Exercises [facility] Start: 09-17-2022 Fall prevention [facility] Start: 09-17-2022 Implementation of planned interventions [facility] Start: 09-17-2022 Inhalation therapy procedure [facility] Start: 09-17-2022 Insertion of catheter into peripheral vein [facility] Start: 09-17-2022 Introduction of urinary catheter [facility] Start: 09-17-2022 Measuring intake and output [facility] Start: 09-17-2022 Notification of physician [facility] Start: 09-17-2022 Oxygen therapy [facility] Start: 09-17-2022 End: 09-18-2022 Patient referral to dietitian [facility] Start: 09-17-2022 Providing care according to standard [facility] Start: 09-17-2022 Provision of activity privileges [facility] Start: 09-17-2022 Referral to occupational therapist [facility] Start: 09-17-2022 Referral to service [facility] Start: 09-17-2022 Speech therapy assessment [facility] Start: 09-17-2022 Tobacco use cessation education [facility] Start: 09-17-2022 [facility] Start: 09-17-2022 Admission procedure [facility] Start: 09-01-2022 [facility] [facility] Start: 08-31-2022 Patient referral [facility] Work Phone: Start: 08-31-2022 Following clinical pathway protocol [facility] Start: 08-31-2022 Pulse taking [facility] Start: 08-31-2022 Cardiac monitoring [facility] Start: 08-31-2022 Cardiac rehabilitation - phase 1 [facility] Start: 08-31-2022 Cardiac rehabilitation - phase 2 [facility] Start: 08-31-2022 Notification of physician [facility] Start: 08-31-2022 Oxygen therapy [facility] Start: 08-31-2022 Patient discharge [facility] Start: 08-31-2022 Taking patient vital signs [facility] Start: 08-31-2022 Vascular disease risk assessment [facility] Start: 08-31-2022 Vital signs measurements [facility] Start: 08-31-2022 End: 08-31-2022 [facility] Start: 08-31-2022 Admission procedure [facility] Start: 11-16-2021 [facility] Work Phone: Start: 01-10-2021 End: 01-10-2021 Admission to same day surgery center 01/10/2021 Surgery Cardiology Eladio Ingram MD [address] [facility] [address] [place] [address] Left Heart Cath Possible PTCA/Stent [facility] [employer] Comment on above: Left Heart Cath Possible PTCA/Stent Start: 01-10-2021 Subsequent hospital visit by physician 01/10/2021 Hospital Encounter Eladio Ingram MD [address] [facility] [address] [place] [address] [facility] Unit Start: 01-01-2021 Influenza vaccination [facility] Start: 12-26-2020 End: 12-26-2020 Patient encounter procedure 12/26/2020 Office Visit Cardiology Marycarmen Rodriguez DO [address] [place] [address] [place] [address] [phone] Eladio Ingram MD [address] [facility] [address] [place] [address] [phone] [facility] Office Start: 10-15-2020 End: 10-15-2020 Patient encounter procedure 10/15/2020 Appointment Cardiology Eladio Ingram MD [address] [facility] [address] [place] [address] [phone] [facility] Start: 10-09-2020 End: 10-09-2020 Patient encounter procedure 10/09/2020 Office Visit Cardiology Fernanda Acuña, PATROL INSPECTOR [address] [place] [address] [phone] [facility] Office Start: 11-05-2017 Prostate specific antigen measurement PSA Level [facility] Start: 06-01-2017 HEMOGLOBIN A1C HEMOGLOBIN A1C [facility] Work Phone: Start: 06-01-2017 Hemoglobin A1c measurement A1C [facility] Start: 06-01-2017 Hemoglobin A1c/Hemoglobin.total mass fraction (Bld) HEMOGLOBIN A1C [facility] Work Phone: Start: 01-01-2017 SEQUENTIAL INFLUENZA VACCINE (#1) SEQUENTIAL INFLUENZA VACCINE (#1) [facility] Work Phone: Start: 12-17-2016 Ambulatory 12/17/2016 Office Visit Cardiology Eladio Ingram MD [address] [facility] [address] [place] [address] [phone] [facility] Start: 2010 ABDOMINAL AORTIC ULTRASOUND ABDOMINAL AORTIC ULTRASOUND [facility] Work Phone: Start: 2010 Fall risk assessment Falls Risk Assessment [facility] Start: 2010 PNEUMOCOCCAL VACCINE AGE 65+ (1 of 2 - PCV13) PNEUMOCOCCAL VACCINE AGE 65+ (1 of 2 - PCV13) [facility] Work Phone: Start: 2005 Zoster vacc, sc ZOSTER VACCINE [facility] Work Phone: Start: 08-01-1995 Administration of herpes zoster vaccine Zoster Vaccines (1 of 2) [facility] Start: 08-01-1995 Screening for malignant neoplasm of colon [facility] Start: 08-01-1963 Hepatitis C screening Hepatitis C Screening [facility] Start: 1957 COVID-19 Vaccine (1) COVID-19 Vaccine (1) [facility] Start: 08-01-1955 3 comp foot exam completed FOOT EXAM [facility] Work Phone: Start: 08-01-1955 Albumin Test strip detection limit <= 20 mg/L mass conc (U) URINE MICROALBUMIN [facility] Work Phone: Start: 08-01-1955 Diabetic foot examination Foot Exam [facility] Start: 08-01-1955 Microalbumin measurement, urine, quantitative Urine Microalbumin [facility] Start: 08-01-1955 Ophthalmic examination and evaluation OPHTHALMOLOGY EXAM [facility] Start: 08-01-1955 FOOT EXAM FOOT EXAM [facility] Work Phone: Start: 08-01-1955 OPHTHALMOLOGY EXAM OPHTHALMOLOGY EXAM [facility] Work Phone: Start: 08-01-1955 URINE MICROALBUMIN URINE MICROALBUMIN [facility] Work Phone: Start: 08-01-1951 Pneumococcal Vaccine: Age 65+ (1 of 2 - PPSV23) Pneumococcal Vaccine: Age 65+ (1 of 2 - PPSV23) [facility] Start: 1948 History and physical examination, annual for health maintenance Wellness Visit [facility] Start: 1945 Colonoscopy COLONOSCOPY [facility] Work Phone: Start: 1945 Tetanus vaccination Tetanus: Every 10yrs [facility] Start: 1945 Colonoscopy COLONOSCOPY [facility] Work Phone: Start: 1945 End: 1945 HEPATITIS C SCREENING HEPATITIS C SCREENING [facility] Work Phone: Start: 1945 End: 1945 TETANUS EVERY 10 YR TETANUS EVERY 10 YR [facility] Work Phone: Alanine aminotransfe rase [Enzymatic activity/volume] in Serum or Plasma [facility] Alanine aminotransfe rase [Enzymatic activity/volume] in Serum or Plasma [facility] Albumin [Mass/volume ] in Serum or Plasma [facility] Albumin [Mass/volume ] in Serum or Plasma [facility] Alkaline phosphatase [Enzymatic activity/volume] in Serum or Plasma [facility] Alkaline phosphatase [Enzymatic activity/volume] in Serum or Plasma [facility] Anion gap in Serum or Plasma [facility] Anion gap in Serum or Plasma [facility] End: 12-26-2021 Basic metabolic 1999 panel - Serum or Plasma Basic metabolic panel Lab Routine Atherosclerosis of [place] coronary artery with angina pectoris, unspecified whether [place] or transplanted heart (HCC) Essential hypertension 1 Occurrences starting 12/26/2020 until 12/26/2021 [facility] Comment on above: 1 Occurrences starting 12/26/2020 until 12/26/2021 Basic metabolic 1999 panel - Serum or Plasma Basic metabolic panel Lab Routine Atherosclerosis of [place] coronary artery with angina pectoris, unspecified whether [place] or transplanted heart (HCC) Essential hypertension 12/26/2020 11:28 AM EDT [facility] Basic metabolic 2007 panel with ionized calcium - Serum or Plasma [facility] Basic metabolic 2007 panel with ionized calcium - Serum or Plasma [facility] Basic metabolic 2007 panel with ionized calcium - Serum or Plasma [facility] End: 12-17-2017 Basic metabolic panel [AGGREGATE] Basic metabolic panel Routine MATTHEW (obstructive sleep apnea) Coronary artery disease involving [place] coronary artery of [place] heart without angina pectoris 1 Occurrences starting 12/17/2016 until 12/17/2017 [facility] Work Phone: Bilirubin, total measurement [facility] Bilirubin, total measurement [facility] Blood chemistry [facility] BUN/Creatinine ratio [facility] BUN/Creatinine ratio [facility] Calcium [Mass/volume ] in Serum or Plasma [facility] Calcium [Mass/volume ] in Serum or Plasma [facility] Carbon dioxide, tota l [Moles/volume] in Central venous blood [facility] Carbon dioxide, tota l [Moles/volume] in Central venous blood [facility] Catheterization of l [facility] Catheterization of l [facility] Catheterization of l [facility] CBC W Auto Different ial panel - Blood [facility] CBC W Auto Different ial panel - [facility] End: 12-26-2021 Complete blood count with white cell differential, manual CBC and differential Lab Routine Atherosclerosis of [place] coronary artery with angina pectoris, unspecified whether [place] or transplanted heart (HCC) Essential hypertension 1 Occurrences starting 12/26/2020 until 12/26/2021 [facility] Work Phone: Comment on above: 1 Occurrences starting 12/26/2020 until 12/26/2021 Complete blood count with white cell differential, manual CBC and differential Lab Routine Atherosclerosis of [place] coronary artery with angina pectoris, unspecified whether [place] or transplanted heart (HCC) Essential hypertension 12/26/2020 11:28 AM EDT [facility] Creatinine [Mass/vol ume] in Serum or Plasma [facility] Creatinine [Mass/vol ume] in Serum or Plasma [facility] End: 01-10-2022 CT Angiogram Aorta Chest Abdomen Pelvis CT Angiogram Aorta Chest Abdomen Pelvis Imaging Routine Coronary artery disease involving [place] coronary artery of [place] heart with angina pectoris (HCC) 1 Occurrences starting 01/10/2021 until 01/10/2022 [facility] Work Phone: Comment on above: 1 Occurrences starting 01/10/2021 until 01/10/2022 End: 12-04-2021 Echocardiography Echocardiogram complete Echocardiography Routine Shortness of breath 1 Occurrences starting 10/04/2020 until 12/04/2021 [facility] Comment on above: 1 Occurrences starting 10/04/2020 until 12/04/2021 Erythrocyte mean cor puscular volume determination [facility] Erythrocyte mean cor puscular volume determination [facility] Erythrocyte mean cor puscular volume determination [facility] Glucose [Mass/volume ] in Serum or Plasma [facility] Glucose [Mass/volume ] in Serum or Plasma [facility] Hematocrit [Volume F raction] of Blood [facility] Hematocrit [Volume F raction] of Blood [facility] Hematocrit [Volume F raction] of Blood [facility] Hemoglobin [Mass/vol ume] in Blood [facility] Hemoglobin [Mass/vol ume] in Blood [facility] Hemoglobin [Mass/vol ume] in Blood [facility] INR in Blood by Coag ulation assay [facility] LEFT HEART CATH POSS IBLE PTCA/STENT LEFT HEART CATH POSSIBLE PTCA/STENT [facility] Leukocytes [#/volume ] in Blood [facility] Leukocytes [#/volume ] in Blood [facility] Leukocytes [#/volume ] in Blood [facility] End: 12-17-2017 Magnesium Magnesium Routine MATTHEW (obstructive sleep apnea) Coronary artery disease involving [place] coronary artery of [place] heart without angina pectoris 1 Occurrences starting 12/17/2016 until 12/17/2017 [facility] Work Phone: Mean corpuscular hem oglobin concentration determination [facility] Mean corpuscular hem oglobin concentration determination [facility] Mean corpuscular hem oglobin concentration determination [facility] Mean corpuscular hem oglobin determination [facility] Mean corpuscular hem oglobin determination [facility] Mean corpuscular hem oglobin determination [facility] Measurement of renal function [facility] Measurement of renal function [facility] Measurement of respi ratory function [facility] Work Phone: Natriuretic peptide. B prohormone N-Terminal [Mass/volume] in Serum or Plasma [facility] Natriuretic peptide. B prohormone N-Terminal [Mass/volume] in Serum or Plasma [facility] NM Heart Views W str ess and W radionuclide IV [facility] Patient Education [facility] Work Phone: Patient referral [facility] Work Phone: Platelets [#/volume] in Blood [facility] Platelets [#/volume] in Blood [facility] Platelets [#/volume] in Blood [facility] Potassium measurement [facility] Potassium measurement [facility] Red blood cell count [facility] Red blood cell count [facility] Red blood cell count [facility] Red cell distributio n width determination [facility] Red cell distributio n width determination [facility] Red cell distributio n width determination [facility] Serum chloride measurement W [facility] Serum chloride measurement W [facility] Sodium measurement [facility] Sodium measurement [facility] Total protein measurement [facility] Total protein measurement [facility] Troponin T.cardiac [Mass/volume] in Serum or Plasma by High sensitivity method [facility] Troponin T.cardiac [Mass/volume] in Serum or Plasma by High sensitivity method [facility] Troponin T.cardiac [Mass/volume] in Serum or Plasma by High sensitivity method [facility] Troponin T.cardiac [Mass/volume] in Serum or Plasma by High sensitivity method [facility] Troponin T.cardiac [Mass/volume] in Serum or Plasma by High sensitivity method [facility] Troponin T.cardiac [Mass/volume] in Serum or Plasma by High sensitivity method [facility] Urea nitrogen [Mass/ volume] in Serum or Plasma [facility] Urea nitrogen [Mass/ volume] in Serum or Plasma [facility] XR Chest PA and Lateral os [facility] Immunizations Immunization Date Immunization Notes Care Provider Fa cility 11-26-2024 tetanus toxoid, redu terry diphtheria toxoid, and acellular pertussis vaccine, adsorbed Dr. Marycarmen Rodriguez DO Work Phone: [facility] 02-19-2023 influenza, injectabl e, quadrivalent, preservative free Dr. Marycarmen Rodriguez DO Work Phone: [facility] 01-27-2022 influenza, injectabl e, quadrivalent, preservative free Dr. Marycarmen Rodriguez DO Work Phone: [facility] 09-04-2021 Covid (Pfizer) Dr. Marycarmen hough DO Work Phone: [facility] 02-24-2021 Covid (Pfizer) Dr. Marycarmen hough DO Work Phone: [facility] 06-27-2020 Covid (Pfizer) Dr. Marycarmen hough DO Work Phone: [facility] 05-31-2020 Covid (Pfizer) Dr. Marycarmen hough DO Work Phone: [facility] 02-20-[address] Marycarmen Rodriguez Work Phone: [facility] 02-14-[address] Marycarmen Rodriguez Work Phone: [facility] 01-31-[address] Marycarmen Rodriguez Work Phone: [facility] 04-12-2017 influenza, high dose seasonal, preservative-free Dr. Marycarmen Rodriguez DO Work Phone: [facility] 11-29-2016 HEMOGLOBIN A1C [facility] Work Phone: 08-16-2014 pneumococcal polysaccharide vaccine, [address] Marycarmen Rodriguez DO Work Phone: [facility] 08-05-2005 hepatitis A vaccine, pediatric/adolescent dosage, [address] Marycarmen Rodriguez DO Work Phone: [facility] 01-14-2005 hepatitis A vaccine, pediatric/adolescent dosage, [address] Marycarmen Rodriguez DO Work Phone: [facility] 01-14-2005 TD(adult) unspecifie d formulation Dr. Marycarmen Rodriguez DO Work Phone: [facility] Payers Date Payer Category Payer Self-pay [id number] 2019 Unknown [id number] 1. [id number] 2019 Unknown [id number] 2012 Unknown [id number] 2.1 6.840.1.563800.3.249.13 2010 Medicare [id number] 2.16 .840.1.204814.3.249.13 2010 Medicare [id number] 1.2 .[id number]11145.315 2010 Medicare [id number] 2010 Medicare [id number] 1945 Unknown [id number] 2.16. 840.1.911713.3.579.2.594 1945 Unknown [id number] 2.16. 840.1.907078.3.579.2.902 1945 Unknown [id number] 2.16. 840.1.738677.3.579.2.903 1945 Unknown [id number] 2.16. 840.1.308238.3.579.2.903 1945 Unknown [id number] 2.16. 840.1.449963.3.579.2.903 1945 Unknown [id number] 2.16. 840.1.624095.3.579.2.903 1945 Unknown [id number] 2.16. 840.1.302258.3.579.2.903 1945 Unknown [id number] 2.16. 840.1.950118.3.579.2.90 1945 Unknown [id number] 2.16. 840.1.363947.3.579.2.903 1945 Unknown [id number] 2.16. 840.1.922283.3.579.2.903 Unknown [id number] 2.16.8 40.1.482052.3.579.2.462 Unknown [id number] 2.16.8 40.1.630593.3.579.2.462 Unknown [id number] 2.16.8 40.1.182139.3.579.2.462 Unknown [id number] 2.16.8 40.1.582558.3.579.2.462 Unknown [id number] 2.16.8 40.1.488152.3.579.2.462 Unknown [id number] 2.16.8 40.1.018007.3.579.2.462 Unknown [id number] 2.16.8 40.1.994465.3.579.2.462 Unknown [id number] 2.16.8 40.1.425997.3.579.2.462 Unknown [id number] 2.16.8 40.1.082048.3.579.2.462 Unknown [id number] 2.16.8 40.1.939767.3.579.2.462 Unknown [id number] 2.16.8 40.1.308486.3.579.2.462 Unknown [id number] 2.16.8 40.1.722614.3.579.2.462 Unknown [id number] 2.16.8 40.1.245961.3.579.2.462 Unknown [id number] 2.16.8 40.1.700216.3.579.2.462 Unknown [id number] 2.16.8 40.1.546889.3.579.2.462 Unknown [id number] 2.16.8 40.1.681508.3.579.2.462 Unknown [id number] 2.16.8 40.1.176626.3.579.2.462 Unknown [id number] 2.16.8 40.1.230228.3.579.2.462 Unknown [id number] 2.16.8 40.1.852131.3.579.2.462 Unknown [id number] 2.16.8 40.1.405811.3.579.2.462 Unknown [id number] 2.16.8 40.1.811945.3.579.2.462 Unknown [id number] 2.16.8 40.1.458211.3.579.2.462 Unknown [id number] 2.16.8 40.1.872816.3.579.2.462 Unknown [id number] 2.16.8 40.1.792522.3.579.2.462 Unknown [id number] 2.16.8 40.1.641551.3.579.2.462 Unknown [id number] 2.16.8 40.1.450362.3.579.2.462 Unknown [id number] 2.16.8 40.1.598952.3.579.2.462 Unknown [id number] 2.16.8 40.1.306019.3.579.2.462 Unknown [id number] 2.16.8 40.1.734341.3.579.2.462 Unknown [id number] 2.16.8 40.1.728454.3.579.2.462 Unknown [id number] 2.16.8 40.1.106052.3.579.2.462 Unknown [id number] 2.16.8 40.1.000758.3.579.2.462 Unknown [id number] 2.16.8 40.1.860975.3.579.2.462 Unknown [id number] 2.16.8 40.1.467348.3.579.2.462 Unknown [id number] 2.16.8 40.1.848566.3.579.2.462 Unknown [id number] 2.16.8 40.1.708953.3.579.2.462 Unknown [id number] 2.16.8 40.1.494414.3.579.2.462 Unknown [id number] 2.16.8 40.1.460531.3.579.2.462 Unknown [id number] 2.16.8 40.1.670461.3.579.2.462 Unknown [id number] 2.16.8 40.1.402056.3.579.2.462 Unknown [id number] 2.16.8 40.1.224622.3.579.2.462 Unknown [id number] 2.16.8 40.1.736111.3.579.2.462 Unknown [id number] 2.16.8 40.1.362694.3.579.2.462 Unknown [id number] 2.16.8 40.1.864835.3.579.2.462 Unknown [id number] 2.16.8 40.1.807222.3.579.2.462 Unknown [id number] 2.16.8 40.1.015693.3.579.2.462 Unknown [id number] 2.16.8 40.1.620079.3.579.2.462 Unknown [id number] 2.16.8 40.1.805193.3.579.2.462 Unknown [id number] 2.16.8 40.1.811567.3.579.2.462 Unknown [id number] 2.16.8 40.1.597953.3.579.2.462 Unknown [id number] 2.16.8 40.1.333222.3.579.2.462 Unknown [id number] 2.16.8 40.1.307628.3.579.2.462 Unknown [id number] 2.16.8 40.1.061724.3.579.2.462 Unknown [id number] 2.16.8 40.1.895235.3.579.2.462 Unknown [id number] 2.16.8 40.1.643755.3.579.2.462 Unknown [id number] 2.16.8 40.1.016373.3.579.2.462 Unknown [id number] 2.16.8 40.1.039422.3.579.2.462 Unknown [id number] 2.16.8 40.1.391941.3.579.2.462 Unknown [id number] 2.16.8 40.1.837045.3.579.2.462 Unknown [id number] 2.16.8 40.1.984243.3.579.2.462 Unknown [id number] 2.16.8 40.1.003044.3.579.2.462 Unknown [id number] 2.16.8 40.1.927608.3.579.2.462 Unknown [id number] 2.16.8 40.1.692545.3.579.2.462 Unknown [id number] 2.16.8 40.1.246019.3.579.2.462 Unknown [id number] 2.16.8 40.1.482114.3.579.2.462 Unknown [id number] 2.16.8 40.1.808944.3.579.2.462 Unknown [id number] 2.16.8 40.1.640440.3.579.2.462 Unknown [id number] 2.16.8 40.1.056306.3.579.2.462 Unknown [id number] 2.16.8 40.1.332764.3.579.2.462 Social History Date Type Detail Facility Start: 12-17-2016 End: 12-15-2024 Tobacco smoking status NHIS Former smoker [facility] Start: 12-17-2016 End: 10-09-2020 Cigarettes smoked current (pack per day) - Reported [facility] Work Phone: Start: 1945 Sex Assigned At Not on file [facility] Work Phone: Start: 12-17-2016 End: 10-09-2020 Tobacco use and exposure Never used [facility] Start: 12-17-2016 End: 01-10-2021 Alcohol intake Current non-drinker of alcohol (finding) [facility] Start: 03-10-2016 Tobacco Comment quit 25+ yrs ago [facility] Exposure to SARS-CoV -2 (event) Not sure [facility] Start: 08-01-2021 End: 12-21-2022 Tobacco smoking status NHIS Unknown if ever smoked [facility] Start: 01-12-2020 None [facility] Start: 01-12-2020 Spouse/ Signif icant Other [facility] Start: 11-18-2020 Non-smoker [facility] Start: 1945 Sex Assigned At Male W [facility] Start: 07-13-2024 End: 08-08-2024 Sex Male (finding) [facility] Medical Equipment Procedure Code Equipment Code Equipment Origin al Text Equipment Identifier Dates Stent 3.50 X 23 [facility] Rx - [id number] FDA Start: 01-04-2015 [id number] [id number] FDA Start: 08-31-2022 [id number] [id number] FDA Start: 08-31-2022 ()[id number] [id number] FDA Start: 11-27-2024 ()[id number] [id number] FDA Start: 11-30-2024 ()[id number] [id number] FDA Start: 11-30-2024 Goals Date Patient Goal Desired Activity /State Functional Status Date Assessment Result Facility 12-17-2024 Functional status Ambulates [facility] Work Phone: 12-08-2024 Functional status Bedrest [facility] Work Phone: 12-06-2024 Functional status Ambulates [facility] Work Phone: 12-05-2024 Functional status Ambulates [facility] Work Phone: 12-04-2024 Functional status Poor [facility] Work Phone: 12-02-2024 Functional status Bedrest [facility] Work Phone: 11-28-2024 Functional status Ambulates [facility] Work Phone: 11-27-2024 Functional status Dangle Feet [facility] Work Phone: 09-21-2022 Functional status Chair [facility] Work Phone: 09-20-2022 Functional status Assistive Ning lauro Rolling Walker [facility] Work Phone: 09-01-2022 Functional status Activity Ability Indepe ndent [facility] Work Phone: 08-31-2022 Functional status Ambulates [facility] Work Phone: Mental Status Date Assessment Result Facility 12-17-2024 Cognitive function Voice/Name [facility] Work Phone: 12-08-2024 Cognitive function Voice/Name [facility] Work Phone: 12-07-2024 Cognitive function Voice/Name [facility] Work Phone: 12-06-2024 Cognitive function Voice/Name [facility] Work Phone: 12-05-2024 Cognitive function Voice/Name [facility] Work Phone: 12-02-2024 Cognitive function Voice/Name [facility] Work Phone: 12-02-2024 Cognitive function Voice/Name [facility] Work Phone: 11-28-2024 Cognitive function Voice/Name [facility] Work Phone: 11-27-2024 Cognitive function [facility] Work Phone: 09-21-2022 Cognitive function Voice/Name [facility] Work Phone: 09-01-2022 Cognitive function Appropriate;Cooperativ e [facility] Work Phone: 11-16-2021 Cognitive function Voice/Name [facility] Work Phone: 06-10-2021 Cognitive function Level Of Cons ciousness Awake;Alert;Appropriate [facility] Work Phone: Clinical Notes 06-25-2020 to 12-17-2024 Note Date & Type Note Facility 12-17-2024 Note [facility] 12-17-2024 Hospital Discharg e instructions Additional Instructions Date of Discharge: 12/17/24 [facility] Work Phone: 12-16-2024 Progress note Note Date/Time December 17, 2024 1:40pm [facility] Medical Records Department [address] [place] [address] Progress Note - Hospitalist 12/16/24 184 MR#: [id number] Acct: [id number] Name: ERIBERTO RICO Rep #:[id number] : 1945 79 From: Marycarmen Marlow DO PCP: Dr. Marycarmen Rodriguez, DO Status:ADM IN Location: [place] [address] Reason for Visit Chief Complaint: Chest pain Subjective Subjective Patient was seen and examined today, he had nausea and vomiting today and I elected to have him remain in the hospital for now and reevaluate him tomorrow for possible discharge to his senior care. Objective Data Objective Data Vital Signs: Vital Signs Temp Pulse Resp BP Pulse Ox O2 Del Method FiO2 97.9 F 73 18 116/75 99 Room Air 21 12/16/24 16:31 12/16/24 16:31 12/16/24 16:31 12/16/24 16:31 12/16/24 16:31 12/16/24 16:31 12/16/24 02:36 Oxygen Delivery Method Room Air Weight: 96.5 kg Body Mass Index (BMI) 31.4 Intake & Output: Intake and Output for Last 24 Hours 12/14/24 12/15/24 12/16/24 23:59 23:59 23:59 Intake Total 520 / 520 540 / 540 Output Total 1220 / 1220 1150 / 1150 Balance -700 / -700 -610 / -610 Medical Nutrition Assessment Dietitian: Malnutrition Criteria Met Start: 12/16/24 12:16 Freq: Status: Active Protocol: Document 12/16/24 12:16 MIKE (Rec: 12/16/24 12:16 MIKE [id number]) Nutrition Malnutrition Evidence of Yes Malnutrition Exists Malnutrition (severe Acute Illness/Injury ): Evidenced By Suboptimal Energy Intake (Severe),Weight Loss (Severe) Clinical Problem Acute Disease or Injury Related Malnutrition Etiology related to recent heart attack, loss of appetite d/t food doesn't taste good, and inadequate energy intake Signs/Symptoms as evidenced by po intake meeting < 75% of est nutritional needs and ~ 13% 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 Lab / Micro Data 12/16/24 07:21 12/16/24 07:21 Labs: Laboratory Results - last 24 hr 12/15/24 18:08: Troponin T Hi Sens 4Hr 1115 H* 12/15/24 20:58: POC Glucose 192 H 12/16/24 06:34: POC Glucose 169 H 12/16/24 07:21: WBC 8.7, RBC 4.65, Hgb 13.3, Hct 40.1, MCV 86.2, MCH 28.6, MCHC 33.2, RDW Std Deviation 42.2, RDW Coeff of Adrian 13.4, Plt Count 181, MPV 13.2 H, Immature Gran % (Auto) 0.800, Neut % (Auto) 75.7 H, Lymph % (Auto) 10.7 L, Curry % (Auto) 12.1 H, Eos % (Auto) 0.5, Baso % (Auto) 0.2, Absolute Neuts (auto) 6.6,Absolute Lymphs (auto) 0.93, Nucleated RBC % 0, Sodium 131 L, Potassium 3.8, Chloride 93 L, Carbon Dioxide 19.2 L, Anion Gap 18 H, BUN 58 H, Creatinine 2.65 H, Estim Creat Clear Calc 25.90 L, Est GFR (MDRD) Non-Af 24 L, BUN/Creatinine Ratio 21.8 H, Glucose 182 H, Calcium 9.3 12/16/24 11:24: POC Glucose 237 H 12/16/24 16:26: POC Glucose 152 H Rhythm Strip Rhythm Strip: Sinus Rhythm Physical Exam Const alert, oriented x3 and no apparent distress General Appearance: cooperative, well kempt and well developed Orientation / Consciousness: awake, oriented to person, oriented to place and oriented to time HEENT normocephalic, head/scalp atraumatic and moist oral mucous membranes Eyes PERRL, EOMs intact bilaterally and conjunctivae normal Neck supple, no JVD, thyroid normal and no carotid bruits General: trachea midline Resp normal respiratory effort, no retractions, no use of accessory muscles and clearto auscultation bilaterally Auscultation: Negative for rales, rhonchi or wheezes Cardio regular rate, regular rhythm, S1 normal heart sound, S2 normal heart sound, no murmurs, no rub and no gallops GI normal to inspection, nondistended, normoactive bowel sounds, soft to palpation,non-tender and non-distended Extremity no clubbing, cyanosis or edema Skin no rashes or lesions noted General Skin Exam: no breakdown Neuro oriented x3, CN's II-XII intact bilaterally, no focal motor deficits and no sensory deficits noted Sensorium / Orientation: awake and alert Speech: speech normal Psych affect normal Assessment & Plan Assessment/Plan (1) Chest pain: PLAN: Plan 1. Pericarditis-continue colchicine x 3 months, continue beta-jeffrey, statin, Brilinta, aspirin and Ranexa #2 coronary artery disease-continue present medications #3 chronic kidney disease stage IV-complicates care, management, recovery, and prognosis, labs will be monitored as necessary #4 type 2 diabetes-blood sugars will be monitored, sliding scale insulin will beadministered as needed #5 hyponatremia-BMP will be monitored as necessary #6 intermittent nausea and vomiting-etiology unclear at this point, patient has no difficulty swallowing, the nausea/vomiting is transient and sometimes consistof dry heaves, patient will be given antiemetics as needed #7 chronic depression-patient is on Prozac and Remeron #8 generalized weakness secondary to multiple medical problems-patient will return to his care home facility when medically stable Total clinical time spent by myself addressing the patient's medical issues, reviewing all of his data, and collaborating patient's care team: 35 minutes Charges/Coding Visit Charges Inpatient E&M: 55993 Subs Hosp L2 12/17/24 1340 <Electronically signed by Marycarmen Marlow DO> Cosigner Signature (if applicable): CC: ~ Signed [facility] Work Phone: 1(453) 942-814208-16-2025 Progress note Author Lance Rodriguez [facility] Note Date/Time December 16, 2024 12 :02pm [facility] Medical Records Department [address] [place] [address] Progress Note 08/16/25 1154 MR#: [id number] Acct: [id number] Name: ERIBERTO RICO Rep #:[id number] : 1945 79 From: Lance Rodriguez MD PCP: Dr. Marycarmen Rodriguez, DO Status:ADM IN Location: [place] [address] Progress Note He states that his breathing and chest pain improved a lot. Physical Exam Const alert and oriented x3 HEENT normocephalic Eyes PERRL General Eye: normal appearance of both eyes Neck full ROM Chest inspection of chest normal Resp normal respiratory effort Cardio regular rate, regular rhythm, S1 normal heart sound and S2 normal heart sound Cardio Narrative: +ve pericardial rub Jugular Venous Distention: Negative for JVD GI normal to inspection, nondistended, normoactive bowel sounds no CVA tenderness Assessment & Plan Assessment/Plan (1) Chest pain: PLAN: # Concerning however by comparing the EKGs over the last 1 month with multiple ER visits and elevated high-sensitivity troponin with RCA stent thrombosis, his inferior Q waves and persistent ST segment elevation of at least1 mm appears to be stable and the same. His high-sensitivity troponin is showing a downtrend of 1100 compared to his previous troponin over 7000 a week ago. His last cardiac catheterization on December 02, 2024 demonstrated patent stent in the RCA. There is a small pericardial effusion that may raise the possibility of post ND pericarditis and may explain some of his recurrent chest pain syndrome. # Continue with Colchicine cautiously as we are trying to avoid NSAIDs here specially with his renal insufficiency and being on dual antiplatelet therapy. # Will continue the dual antiplatelet therapy previously prescribed and may continue with long-term as a mono antiplatelet therapy with ticagrelor due to multiple layers of stents in the RCA with previous stent thrombosis and extensive 360 degree of calcifications underneath the stents that limited the percutaneous options. Previous shockwave lithotripsy was utilized. # The family as well as the patient are very comfortable with the above plan butmay change strategy and proceed with an invasive revisualization of the right coronary artery if troponin enzymes starts increasing. Or chest pain recurs in the future. # His chest pain is much improved, he can be discharged today. (2) Pericardial effusion: PLAN: Small and may be reactive for which we will try short course of colchicine and PPI (3) Essential hypertension: PLAN: Controlled (4) CKD (chronic kidney disease) stage 4, GFR 15-29 ml/min: PLAN: Will avoid NSAIDs at this time and try to limit the contrast related studies to the minimum and absolutely needed (5) Central sleep apnea: PLAN: Continue CPAP (6) Diastolic heart failure: QUALIFIERS: Heart failure chronicity: chronic Qualified Code(s): I50.32 - Chronic diastolic (congestive) heart failure PLAN: At the present time he has combined systolic and diastolic dysfunction LVEF 45%, appears euvolemic and in no acute volume overload status, continue thecurrent medical therapy previously prescribed for the above moderate LV systolicdysfunction. He is on BB, Aldactone and SGLT2i. Not on ACEi in the setting of CKD4. Ideally he needs to be started on ACEi in the setting of hypertension, diabetes, CKD and reduced EF. 12/16/24 1202 <Electronically signed by Lance Rodriguez MD> Lance Rodriguez MD Cosigner Signature (if applicable): CC: ~ Signed [facility] Work Phone: 1(354) 611-988408-15-2025 History and physical note Author Ramonita Herron [facility] Note Date/Time December 15, 2024 3: 23pm [facility] Medical Records Department [address] [place] [id number] H&P Exam - Hospitalist 12/15/24 1435 MR#: [id number] Acct: [id number] Name: ERIBERTO RICO Rep #:[id number] : 1945 79 From: Ramonita Herron MD PCP: Dr. Marycarmen Rodriguez, DO Status:ADM IN Location: [facility] LVL389- 1 HPI - General General Date of Admission: 12/15/24 Date of Service: 12/15/24 Chief Complaint: Chest pain HPI Narrative ERIBERTO RICO, is a 79-year-old male history of CKD, heart failure, coronary artery disease, COPD, recent STEMI after an in-stent thrombosis who presented [facility] ED 12/15/2024 for active chest pain. Reportedly he was at physical therapy and he started having tightness and pressure in the center of his chest, has been having this off and on over the past 2 weeks sincehe was discharged. Does have some shortness of breath. Was given nitro and aspirin by EMS with moderate help. Patient initially a STEMI alert however cardiology evaluated and did not feel that EKG changes were much different than last admission so STEMI alert canceled. In ED temp 97.6, heart rate 98, blood pressure 127/90, respiratory rate 24 pulse ox 98% on room air. CBC with white blood cell count 14.8, sodium 129, bicarb 18.4 with a gap of 19, BUN of 59 and acreatinine 2.9. glc 266. Trop 1137 and pro BNP 1961. Troponins elevated, patient with ongoing chest pain so cardiology recommended admission and trendingtroponins, they will be starting colchicine and will decide further on catheterization or further workup pending clinical progress. There is low suspicion for PE as he had recent VQ scan that was negative. Hospitalist contacted for admission. Patient evaluated with family members at bedside, he reports cough and shortness of breath with some intermittent nausea over the past 1 month since all this has been going on however this chest pain started today and is mild tightness and pressure in the center of his chest, reports theshortness of breath is not necessarily associated with the chest pain and is there most of the time, chest pain he does not think was helped with nitro or aspirin but felt like the morphine completely took it away, reports he thinks the morphine is wearing off now and his pain is a 2 or 3. Denies any leg swelling, reportedly the legs are actually less swollen than usual. [facility] Medical History Recent ST elevation myocardial infarction (STEMI) Chest pain History of acute inferior wall ND Acute ST elevation myocardial infarction (STEMI) of inferior wall Anxiety Depression Diabetes Kidney disease Former smoker Atrial fibrillation Myocardial infarct Coronary artery disease Hypertension TIA (transient ischemic attack) Anemia Shortness of breath Unstable angina Fatigue Syncope [...] TIA (transient ischemic attack) Obstructive sleep apnea Atherosclerotic heart disease [place] coronary artery w/angina pectoris Type 2 diabetes [...] SUPPL EMENT 08/01/21 10/11/23 History magnesium) tablet cholecalciferol (vitamin D3) [address] 10/11/23 History mcg (1,000 unit) tablet fluoxetine 40 mg capsule 80 mg PO DAILY DEPRESSION 90 days 09/16/21 10/11/23 History #180 caps acetaminophen 325 mg tablet 650 mg PO Q6H PRN Pain 1-1 10/12/23 Unknown History atorvastatin 40 mg tablet 40 mg PO QHS CHOLESTEROL #90 tabs 06/14/24 Unknown Rx nitroglycerin 0.4 mg sublingual 0.4 mg sublingual Q5-1 5M PRN CHEST 06/14/24 Unknown Rx tablet PAIN #25 tabs pantoprazole 40 mg tablet,delayed 40 mg PO DAILY GERD #90 tabs 06/14/24 Unknown Rx release potassium chloride 20 mEq 60 meq (3 x 20 mEq) PO BID 0 06/14/24 Unknown Rx tablet,extended release(part/cryst) supplement #180 ta bs amlodipine 5 mg tablet 5 mg PO QPM blood pressure 0 10/25/24 Unknown History metoprolol succinate 25 mg 25 mg PO DAILY blood pressu re #30 10/25/24 Unknown Rx tablet,extended release 24 hr tabs ticagrelor 90 mg tablet (Brilinta) 90 mg PO BID #60 ta bs 12/02/24 Unknown Rx empagliflozin 10 mg tablet 10 mg PO DAILY #90 tabs 10/25 Unknown Rx (Jardiance) furosemide 40 mg tablet 40 mg PO DAILY #90 tabs 10/25 Unknown Rx insulin lispro 100 unit/mL See Protocol subcut ACHS #0 mL 12/06/24 Unknown Rx subcutaneous pen (Humalog KwikPen (U-100) Insulin) ranolazine 500 mg tablet,extended 500 mg PO BID #180 t abs 12/06/24 Unknown Rx release,12 hr spironolactone 25 mg tablet 25 mg PO DAILY #90 tabs Unknown Rx cetirizine 10 mg tablet 10 mg PO DAILY Allergic Reac tion 12/12/24 Unknown History metolazone 2.5 mg tablet 2.5 mg PO .PRN diuretic 12/01 06/27 Unknown History Allergy/AdvReac Type Severity Reaction Status Date / Time No Known Allergies Allergy Verified 12/12/24 10:23 Family History Father Parkinsons disease Prostate cancer Mother Osteoporosis Surgical History Presence of coronary angioplasty implant and graft (11/27/24) History of tympanostomy tube placement History of percutaneous transluminal coronary angioplasty (08/18/18) History of herniorrhaphy Hx of cholecystectomy History of tonsillectomy History of prostatectomy Social History household members: spouse and none housing: senior care Smoking Status: Former smoker quit date: 05/03/98 pack-years: 50 how long ago did patient quit smokin years ago alcohol intake: never substance use type: does not use caffeine: Yes Type: coffee and tea Number of servings: 6 ROS ROS Narrative General: Denies fever/chills HENT: Denies headache EYES: Denies changes in vision Resp: Dry cough and increased shortness of breath over the past month Cardiac: Center of his chest intermittent tightness and pressure GI: Denies abdominal pain, intermittent nausea : Had 1 episode recently where the color of his urine was different than usual, he felt last night like he had a little bit of a harder time emptying hisbladder but feels that is since resolved Extremity: Improved swelling MSK: Denies weakness Neuro: Denies any numbness/tingling Heme: Easy bleeding and bruising Skin: Denies rashes Psychiatric: No complaints voiced Vital Signs Vital Signs Vital Signs: 12/15/24 11:57 12/15/24 11:57 12/15/24 12:11 Temperature 97.6 F L Temperature Source Temporal Pulse Rate 98 Respiratory Rate 24 H Respiratory Effort Normal Non-Labored Blood Pressure 127/90 H Blood Pressure Mean 102 Pulse Ox 98 Oxygen Delivery Method Room Air 12/15/24 12:57 12/15/24 13:52 12/15/24 14:00 Temperature 97.8 F Temperature Source Pulse Rate 72 72 76 Respiratory Rate 14 14 18 Respiratory Effort Blood Pressure 109/82 H 109/82 H 110/82 H Blood Pressure Mean 91 91 91 Pulse Ox 95 95 96 Oxygen Delivery Method Room Air Weight Weight: 99.1 kg Body Mass Index (BMI) 32.2 Physical Exam Narrative General: Alert, oriented, no apparent distress HEENT: Atraumatic, normocephalic Eyes: Anicteric, normal conjunctiva, extraocular movements grossly intact Neck: Supple Respiratory: No overt wheezes or rhonchi, no significant respiratory distress Cardiovascular: Regular rate and rhythm GI: Somewhat firm but nontender Extremities: No edema Musculoskeletal: Moving all extremities Neuro: No overt focal neurological deficits Skin: Some scattered bruising Psych: Cooperative Results Lab / Micro Data 12/15/24 12:25 12/15/24 12:25 Labs: Laboratory Results - last 24 hr 12/15/24 12:25: WBC 14.8 H, RBC 4.72, Hgb 13.7, Hct 40.2, MCV 85.2, MCH 29.0, MCHC 34.1, RDW Std Deviation 41.6, RDW Coeff of Adrian 13.4, Plt Count 242, MPV 13.4 H, Immature Gran % (Auto) 0.800, Neut % (Auto) 79.3 H, Lymph % (Auto) 9.7 L, Curry % (Auto) 9.9, Eos % (Auto) 0.1, Baso % (Auto) 0.2, Absolute Neuts (auto) 11.7 H, Absolute Lymphs (auto) 1.43, Nucleated RBC % 0, PT 16.8 H, INR 1.3, ZKQY601.8 H*, Sodium 129 L, Potassium 4.5, Chloride 91 L, Carbon Dioxide 18.4 L, Anion Gap 19 H, BUN 59 H, Creatinine 2.90 H, Estim Creat Clear Calc 23.97 L, Est GFR (MDRD) Non- Af 21 L, BUN/Creatinine Ratio 20.4 H, Glucose 266 H, Calcium 9.5,Troponin T High Sens 1137 H* D, NT pro BNP II 1961 H Rhythm Strip Rhythm Strip: Sinus Rhythm Imaging Radiology Impression Chest X-Ray 12/15/24 13:10 IMPRESSION: Hyperinflation. No acute abnormality is seen. [facility] Assessment & Plan Assessment/Plan (1) Chest pain: PLAN: Plan #Recurrent chest pain and elevated trop - Patient with history of coronary artery disease with recent stent and subsequent in-stent thrombosis for which she was taken back to the [facility] - He was subsequently discharged but readmitted again as a STEMI alert however heart cath at that time showed no acute process -Trop initially 1137, though this is down from 12/07 when his troponin was 7100, will trend - Cardiology on consult - [facility] Specialist examined patient's EKG, looks similar to previous send not taken emergently to [facility] - There is concern that he could have Ric syndrome as he has a small pericardial effusion there is theoretically the risk of post ND pericarditis, cardiology to initiate colchicine -NSAIDs to be avoided given his CKD -Continue beta-jeffrey and Ranexa #SOB and hx COPD - Patient follows with the pulmonary office and has a history of COPD, accordingto their note last month he supposed to be on Arnuity 200 mcg 1 inhalation dailywhich is fluticasone, do not see this on his med list, if he is not getting his inhaler this may be in part why his shortness of breath has been worse over thispast month -Will start patient on fluticasone inhaler here, if this helps symptoms he will need to work on getting back on inhalers and outpatient to help with symptoms and functional status # Chronic heart failure with combined systolic and diastolic dysfunction - LVEF 45% and patient has history of diastolic dysfunction - Continue patient's current medical therapy - Daily weights - I's and O's - Heart healthy diet, fluid restriction -Continuing patient's Lasix, is documented that he is on Lasix, spironolactone, and 60 mill equivalents of potassium twice daily which seems quite high given heis also on Aldactone and has this level of kidney dysfunction, will decrease to 30 twice daily, can go back up if this is necessary but will err on the side of caution #MATTHEW -Continue home NIPPV if applicable -AHI 64.7 with mixed apnea # CKD stage IV - Vacillates widely but overall appears to be at baseline -Avoid nephrotoxic agents -Daily BMPs # Hyponatremia - Has vacillated, 12/12 was 128 and subsequently 130, today 129 - Repeat in a.m., if further downtrends may need to consider further workup and management - Presently seems to be asymptomatic #Depression/anxiety -Continue home medications #GERD -Continue PPI #DVT ppx: Lovenox subcu Ramonita Herron MD Time spent in the patient's overall evaluation, decision-making process, review of diagnostic data, adjustment of management, discussion with other providers, nursing and ancillary staff involved in patient's care documentation, 78 Minutes Charges/Coding Visit Charges Inpatient E&M: 13232 Init Hosp L3 12/15/24 1523 <Electronically signed by Ramonita Herron MD> Cosigner Signature (if applicable): CC: Dr. Marycarmen Rodriguez DO; Dr. Ramonita Herron MD~ Signed [facility] Work Phone: [phone] 736-829608-15-2025 Consult note Author Sunil [facility] Note Date/Time December 15, 2024 2: 19pm [facility] Medical Records Department [address] [place] [address] Consultation - Cardiology 12/15/24 1337 MR#: [id number] Acct: [id number] Name: ERIBERTO RICO Rep #:[id number] : 1945 79 From: Sunil Faye MD PCP: Dr. Marycarmen Rodriguez DO Status:REG ER Location: ED Assessment & Plan Assessment/Plan (1) Chest pain: PLAN: Concerning however by comparing the EKGs over the last 1 month with multiple ER visits and elevated high-sensitivity troponin with RCA stent thrombosis, his inferior Q waves and persistent ST segment elevation of at least1 mm appears to be stable and the same. His high-sensitivity troponin is showing a downtrend of 1100 compared to his previous troponin over 7000 a week ago. His last cardiac catheterization on December 02, 2024 demonstrated patent stent in the RCA. There is a small pericardial effusion that may raise the possibility of post ND pericarditis and may explain some of his recurrent chest pain syndrome. Will initiate colchicine cautiously as we are trying to avoid NSAIDs here specially with his renal insufficiency and being on dual antiplatelet therapy. Will continue the dual antiplatelet therapy previously prescribed and may continue with long-term as a mono antiplatelet therapy with ticagrelor due to multiple layers of stents in the RCA with previous stent thrombosis and extensive 360 degree of calcifications underneath the stents thatlimited the percutaneous options. Previous shockwave lithotripsy was utilized. The family as well as the patient are very comfortable with the above plan and will continue to downtrend troponin enzymes but may change strategy and proceed with an invasive revisualization of the right coronary artery if troponin enzymes starts increasing. Or chest pain recurs. Continue to use morphine as needed. (2) CKD (chronic kidney disease) stage 4, GFR 15-29 ml/min: PLAN: Will avoid NSAIDs at this time and try to limit the contrast related studies to the minimum and absolutely needed (3) Central sleep apnea: PLAN: Continue CPAP (4) Diastolic heart failure: QUALIFIERS: Heart failure chronicity: chronic Qualified Code(s): I50.32 - Chronic diastolic (congestive) heart failure PLAN: At the present time he has combined systolic and diastolic dysfunction LVEF 45%, appears euvolemic and in no acute volume overload status, continue thecurrent medical therapy previously prescribed for the above moderate LV systolicdysfunction (5) History of percutaneous transluminal coronary angioplasty: PLAN: Multiple layers of drug-eluting stents in the right coronary artery including previous paclitaxel coated stent in the remote past. Recent shockwavelithotripsy and PCI to RCA but last cardiac authorization demonstrated patent stents on December 02, 2024 (6) Angina pectoris: PLAN: Continue beta-jeffrey/ranolazine (7) Pericardial effusion: PLAN: Small and may be reactive for which we will try short course of colchicineand also may consider short course of steroids (8) Type 2 diabetes mellitus without complications: QUALIFIERS: Diabetes mellitus jail insulin use: without jail use Qualified Code(s): E11.9 - Type 2 diabetes mellitus without complications (9) Obstructive sleep apnea: HPI Consult Data Date of Consult: 12/15/24 HPI Narrative Reason for Consultation: Non-STEMI HPI Narrative: ERIBERTO RICO, is a 79 M who presents from rehab facility following a session ofPT with chest pain syndrome. The patient has had an extensive previous coronaryartery disease history with previous inferior wall myocardial infarction and multiple percutaneous interventions of the right coronary artery dating back to 2022 in addition to the PLV branch and has had multiple repeated ER visits following that, and in late October 2024, underwent PCI to right coronary artery inthe setting of stent thrombosis and was started on dual antiplatelet therapy with aspirin and ticagrelor. A follow-up cardiac evaluation on December 02, 2024 also in the ER setting of chest pain syndrome that demonstrated patent stents inthe right coronary artery however his high-sensitivity troponin enzymes continueto be elevated and today 1100 compared to the last admission December 116999. His EKG continues to demonstrate significant ST segment elevation with Q waves inferiorly of at least 1 mm persistent elevation and an echocardiographic study was performed today at the bedside that demonstrated small pericardial effusion not hemodynamically significant with LVEF 45 to 50% with akinesis to severe hypokinesis of the inferior wall. The patient became pain- free at the ER with 1injection of 2 mg of morphine and he has no arrhythmia with stable heart rate inthe 70s and stable blood pressure 130/70. He is in no acute respiratory distress and extensive discussion with the patient as well as his family at the bedside with regard to the next steps specially with his underlying renal insufficiency and stage IV chronic kidney disease which would predispose him to acute kidney injury with contrast-induced nephropathy if we proceed with an invasive cardiac catheterization and contrast use. He has underlying extensive past medical history as described below but include COPD, hypertension, dyslipidemia, degenerative joint disease, moderate obesity class II, sleep apnea, type 2 diabetes mellitus, and remote history of TIA [facility] Medical History Recent ST elevation myocardial infarction (STEMI) Chest pain History of acute inferior wall ND Acute ST elevation myocardial infarction (STEMI) of inferior wall Anxiety Depression Diabetes Kidney disease Former smoker Atrial fibrillation Myocardial infarct Coronary artery disease Hypertension TIA (transient ischemic attack) Anemia Shortness of breath Unstable angina Fatigue Syncope [...] TIA (transient ischemic attack) Obstructive sleep apnea Atherosclerotic heart disease [place] coronary artery w/angina pectoris Type 2 diabetes [...] SUPPL EMENT 08/01/21 10/11/23 History magnesium) tablet cholecalciferol (vitamin D3) [address] 10/11/23 History mcg (1,000 unit) tablet fluoxetine 40 mg capsule 80 mg PO DAILY DEPRESSION 90 days 09/16/21 10/11/23 History #180 caps acetaminophen 325 mg tablet 650 mg PO Q6H PRN Pain 1-1 10/12/23 Unknown History atorvastatin 40 mg tablet 40 mg PO QHS CHOLESTEROL #90 tabs 06/14/24 Unknown Rx nitroglycerin 0.4 mg sublingual 0.4 mg sublingual Q5-1 5M PRN CHEST 06/14/24 Unknown Rx tablet PAIN #25 tabs pantoprazole 40 mg tablet,delayed 40 mg PO DAILY GERD #90 tabs 06/14/24 Unknown Rx release potassium chloride 20 mEq 60 meq (3 x 20 mEq) PO BID 0 06/14/24 Unknown Rx tablet,extended release(part/cryst) supplement #180 ta bs amlodipine 5 mg tablet 5 mg PO QPM blood pressure 0 10/25/24 Unknown History metoprolol succinate 25 mg 25 mg PO DAILY blood pressu re #30 10/25/24 Unknown Rx tablet,extended release 24 hr tabs ticagrelor 90 mg tablet (Brilinta) 90 mg PO BID #60 ta bs 12/02/24 Unknown Rx empagliflozin 10 mg tablet 10 mg PO DAILY #90 tabs 10/25 Unknown Rx (Jardiance) furosemide 40 mg tablet 40 mg PO DAILY #90 tabs 10/25 Unknown Rx insulin lispro 100 unit/mL See Protocol subcut ACHS #0 mL 12/06/24 Unknown Rx subcutaneous pen (Humalog KwikPen (U-100) Insulin) ranolazine 500 mg tablet,extended 500 mg PO BID #180 t abs 12/06/24 Unknown Rx release,12 hr spironolactone 25 mg tablet 25 mg PO DAILY #90 tabs Unknown Rx cetirizine 10 mg tablet 10 mg PO DAILY Allergic Reac tion 12/12/24 Unknown History metolazone 2.5 mg tablet 2.5 mg PO .PRN diuretic 12/01 06/27 Unknown History Allergy/AdvReac Type Severity Reaction Status Date / Time No Known Allergies Allergy Verified 12/12/24 10:23 Family History Father Parkinsons disease Prostate cancer Mother Osteoporosis Surgical History Presence of coronary angioplasty implant and graft (11/27/24) History of tympanostomy tube placement History of percutaneous transluminal coronary angioplasty (08/18/18) History of herniorrhaphy Hx of cholecystectomy History of tonsillectomy History of prostatectomy Social History household members: spouse and none housing: senior care Smoking Status: Former smoker quit date: 05/03/98 pack-years: 50 how long ago did patient quit smokin years ago alcohol intake: never substance use type: does not use caffeine: Yes Type: coffee and tea Number of servings: 6 ROS ROS Narrative As per HPI Physical Exam Const alert and oriented x3 Orientation / Consciousness: awake HEENT normocephalic and head/scalp atraumatic Eyes PERRL and EOMs intact bilaterally Neck full ROM and no lymphadenopathy Carotids: normal carotid upstroke Lymph Lymphatic: no lymphadenopathy noted Chest inspection of chest normal Resp normal respiratory effort Cardio regular rate and regular rhythm GI normal to inspection, nondistended, normoactive bowel sounds Palpation: no hepatosplenomegaly no CVA tenderness Extremity normal to inspection and no clubbing, cyanosis or edema Psych mental status grossly normal Objective Data Vital Signs: Vital Signs Temp Pulse Resp BP Pulse Ox O2 Del Method 97.6 F L 72 14 109/82 H 95 Room Air 12/15/24 11:57 12/15/24 12:57 12/15/24 12:57 12/15/24 12:57 12/15/24 12:57 12/15/24 12:57 Oxygen Delivery Method Room Air Weight: 218 lb 7.649 oz Body Mass Index (BMI) 32.2 Intake & Output: Intake and Output for Last 24 Hours 12/13/24 12/14/24 12/15/24 23:59 23:59 23:59 Intake Total 0 / 0 Balance 0 / 0 Lab / Micro Data Attestation: I reviewed the patient's lab results. 12/15/24 12:25 12/15/24 12:25 Labs: Laboratory Results - last 24 hr 12/15/24 12:25: WBC 14.8 H, RBC 4.72, Hgb 13.7, Hct 40.2, MCV 85.2, MCH 29.0, MCHC 34.1, RDW Std Deviation 41.6, RDW Coeff of Adrian 13.4, Plt Count 242, MPV 13.4 H, Immature Gran % (Auto) 0.800, Neut % (Auto) 79.3 H, Lymph % (Auto) 9.7 L, Curry % (Auto) 9.9, Eos % (Auto) 0.1, Baso % (Auto) 0.2, Absolute Neuts (auto) 11.7 H, Absolute Lymphs (auto) 1.43, Nucleated RBC % 0, Sodium 129 L, Potassium 4.5, Chloride 91 L, Carbon Dioxide 18.4 L, Anion Gap 19 H, BUN 59 H, Creatinine 2.90 H, Estim Creat Clear Calc 23.97 L, Est GFR (MDRD) Non-Af 21 L, BUN/Creatinine Ratio 20.4 H, Glucose 266 H, Calcium 9.5, Troponin T High Sens 1137 H* D, NT pro BNP II 1961 H Rhythm Strip Rhythm Strip: Sinus Rhythm Cardiology Labs/Tests 12/15/24 12:25: WBC 14.8 H, RBC 4.72, Hgb 13.7, Hct 40.2, MCV 85.2, MCH 29.0, MCHC 34.1, Plt Count 242, MPV 13.4 H, Immature Gran % (Auto) 0.800, Neut % (Auto) 79.3 H, Lymph % (Auto) 9.7 L, Curry % (Auto) 9.9, Eos % (Auto) 0.1, Baso %(Auto) 0.2, Absolute Neuts (auto) 11.7 H, Nucleated RBC % 0, Sodium 129 L, Potassium 4.5, Chloride 91 L, Carbon Dioxide 18.4 L, Anion Gap 19 H, BUN 59 H, Creatinine 2.90 H, Est GFR (MDRD) Non-Af 21 L, BUN/Creatinine Ratio 20.4 H, Glucose 266 H, Calcium 9.5 Rhythm: EKG: ECHO: Stress Test: Cardiac Cath: PCI: CT Surgery: Holter monitor: EPS: PPM: CXR: Chest CT Scan: Radiography Diagnostic Testing: Radiology Impression Chest X-Ray 12/15/24 13:10 IMPRESSION: Hyperinflation. No acute abnormality is seen. Reading Location: [facility] Risk Score for UA/STEMI Assesmment (YES = 1) Risk Stratification Applicable: No 12/15/24 1419 <Electronically signed by Sunil Faye MD> Cosigner Signature (if applicable): CC: Dr. Marycarmen Rodriguez, DO~ Signed [facility] Work Phone: [phone]) 665-775208-15-2025 Discharge summary Author Payal Weldon [facility] Note Date/Time December 15, 2024 1: 39pm [facility] Medical Records Department [address] [place] [address] Emergency Department Summary 12/15/24 MR#: [id number] Acct: [id number] Name: ERIBERTO RICO Rep #:[id number] : 1945 79 From: Payal Weldon DO PCP: Dr. Marycarmen Rodriguez DO Status:REG ER Location: ED HPI History of Present Illness Chief Complaint: Chest Pain Narrative Narrative: 79-year-old male history of CKD, heart failure, angina, CAD, COPD presents emergency department for complaint of chest pain. Patient states he was at physical therapy when he started to have active chest pain in the center of his chest been like a tightness and pressure. Patient states this has been on and off over the past couple weeks has had previous stents placed recently with cathdone 2 weeks ago most recently. Denies any radiation, back pain. Patient states he does have associated shortness of breath with the chest pain. Patientwas given aspirin 324 mg and nitroglycerin by EMS. States that it helped moderately. Denies any leg edema, fevers, cough. PFSH PFSH Medical History Recent ST elevation myocardial infarction (STEMI) Chest pain History of acute inferior wall ND Acute ST elevation myocardial infarction (STEMI) of inferior wall Anxiety Depression Diabetes Kidney disease Former smoker Atrial fibrillation Myocardial infarct Coronary artery disease Hypertension TIA (transient ischemic attack) Anemia Shortness of breath Unstable angina Fatigue Syncope [...] TIA (transient ischemic attack) Obstructive sleep apnea Atherosclerotic heart disease [place] coronary artery w/angina pectoris Type 2 diabetes [...] SUPPL EMENT 08/01/21 10/11/23 History magnesium) tablet cholecalciferol (vitamin D3) [address] 10/11/23 History mcg (1,000 unit) tablet fluoxetine 40 mg capsule 80 mg PO DAILY DEPRESSION 90 days 09/16/21 10/11/23 His tory #180 caps acetaminophen 325 mg tablet 650 mg PO Q6H PRN Pain 1-1 10/12/23 Unknown History atorvastatin 40 mg tablet 40 mg PO QHS CHOLESTEROL #90 tabs 06/14/24 Unknown Rx nitroglycerin 0.4 mg sublingual 0.4 mg sublingual Q5-1 5M PRN CHEST 06/14/24 Unknown Rx tablet PAIN #25 tabs pantoprazole 40 mg tablet,delayed 40 mg PO DAILY GERD #90 tabs 06/14/24 Unknown Rx release potassium chloride 20 mEq 60 meq (3 x 20 mEq) PO BID 0 06/14/24 Unknown Rx tablet,extended release(part/cryst) supplement #180 ta bs amlodipine 5 mg tablet 5 mg PO QPM blood pressure 0 10/25/24 Unknown History metoprolol succinate 25 mg 25 mg PO DAILY blood pressu re #30 10/25/24 Unknown Rx tablet,extended release 24 hr tabs ticagrelor 90 mg tablet (Brilinta) 90 mg PO BID #60 ta bs 12/02/24 Unknown Rx empagliflozin 10 mg tablet 10 mg PO DAILY #90 tabs 10/25 Unknown Rx (Jardiance) furosemide 40 mg tablet 40 mg PO DAILY #90 tabs 10/25 Unknown Rx insulin lispro 100 unit/mL See Protocol subcut ACHS #0 mL 12/06/24 Unknown Rx subcutaneous pen (Humalog KwikPen (U-100) Insulin) ranolazine 500 mg tablet,extended 500 mg PO BID #180 t abs 12/06/24 Unknown Rx release,12 hr spironolactone 25 mg tablet 25 mg PO DAILY #90 tabs Unknown Rx cetirizine 10 mg tablet 10 mg PO DAILY Allergic Reac tion 12/12/24 Unknown History metolazone 2.5 mg tablet 2.5 mg PO .PRN diuretic 12/01 06/27 Unknown History Allergy/AdvReac Type Severity Reaction Status Date / Time No Known Allergies Allergy Verified 12/12/24 10:23 Family History Father Parkinsons disease Prostate cancer Mother Osteoporosis Surgical History Presence of coronary angioplasty implant and graft (11/27/24) History of tympanostomy tube placement History of percutaneous transluminal coronary angioplasty (08/18/18) History of herniorrhaphy Hx of cholecystectomy History of tonsillectomy History of prostatectomy Social History household members: spouse and none housing: senior care Smoking Status: Former smoker quit date: 05/03/98 pack-years: 50 how long ago did patient quit smokin years ago alcohol intake: never substance use type: does not use caffeine: Yes Type: coffee and tea Number of servings: 6 EXAM Physical Exam Const Vital Signs: 12/15/24 11:57 12/15/24 11:57 12/15/24 12:11 Temperature 97.6 F L Temperature Source Temporal Pulse Rate 98 Respiratory Rate 24 H Respiratory Effort Normal Non-Labored Blood Pressure 127/90 H Blood Pressure Mean 102 Pulse Ox 98 Oxygen Delivery Method Room Air 12/15/24 12:57 Temperature Temperature Source Pulse Rate 72 Respiratory Rate 14 Respiratory Effort Blood Pressure 109/82 H Blood Pressure Mean 91 Pulse Ox 95 Oxygen Delivery Method Room Air Chest Wall inspection of chest normal and palpation of chest normal Resp normal respiratory effort and clear to auscultation bilaterally Auscultation: Negative for rales or wheezes Cardio regular rate, regular rhythm and no murmurs GI non-tender and non-distended Palpation: soft; Negative for guarding Extremity General Extremety ED: Negative for edema General Extremity: Negative for edema Skin Skin Narrative: bruising over the lower abdomen, late stages of healing based on appearance MDM MDM MDM Narrative Medical decision making narrative: 79-year-old male history of CKD, heart failure, angina, CAD, COPD presents emergency department for complaint of chest pain. Patient states he was at physical therapy when he started to have active chest pain in the center of his chest been like a tightness and pressure. Patient states this has been on and off over the past couple weeks has had previous stents placed recently with cathdone 2 weeks ago most recently. Denies any radiation, back pain. Patient states he does have associated shortness of breath with the chest pain. Patientwas given aspirin 324 mg and nitroglycerin by EMS. States that it helped moderately. Denies any leg edema, fevers, cough.EKG independently interpreted by myself showing evidence of normal sinus rhythm. On physical exam patient having normal heart sounds, lungs clear to auscultation bilaterally on room air. EKG showing ventricular rate 98, NJ 186, QTc 357. Left axis deviation. Compared to previous EKG on 12/07/2024 ST elevation in lead III largely unchanged. Concerned that there may be slightly more elevation in lead II and V6 compared to 12/07 concerning for new ischemia. STEMI alert activated. 5000 mg heparin given. Cardiology did evaluate patient bedside canceled STEMI alert as they believe that EKG from 12/07 largely does not show new ischemic changes. Patient was recently cathed 2 weeks ago showing no occlusions of previously placed stents. They stated that they will obtain bedside echocardiogram and will trendtroponins for now. Low suspicion for pulmonary embolism as patient had previousVQ scan on 12/08 showing negative study. Cardiology stated that with patient's presentation and recent stents they would like patient to be admitted as he is continuing to have chest pain. Unsure of possible Ric syndrome. Would like to have troponins trended with initial elevation today of 1100. Cardiologystates they will also be starting colchicine and unsure of any immediate catheterization at this time however we will continue to follow troponins. HEART score of 9. Spoke with the hospitalist, Ramonita Herron to Monica to patient with further workup and admission for troponin trending and observation with cardiology consult. Vital stable at this time. Lab Data Attestation: I reviewed the patient's lab results. Lab results narrative: History of CKD, creatinine at 2.9 improved from 3.1 on previous labs. Patient does have a slight elevation of BNP though does remain on room air. Troponin level of 1100. Labs: Laboratory Results - last 24 hr 12/15/24 12:25 WBC 14.8 H RBC 4.72 Hgb 13.7 Hct 40.2 MCV 85.2 MCH 29.0 MCHC 34.1 RDW Std Deviation 41.6 RDW Coeff of Adrian 13.4 Plt Count 242 MPV 13.4 H Immature Gran % (Auto) 0.800 Neut % (Auto) 79.3 H Lymph % (Auto) 9.7 L Curry % (Auto) 9.9 Eos % (Auto) 0.1 Baso % (Auto) 0.2 Absolute Neuts (auto) 11.7 H Absolute Lymphs (auto) 1.43 Nucleated RBC % 0 Sodium 129 L Potassium 4.5 Chloride 91 L Carbon Dioxide 18.4 L Anion Gap 19 H BUN 59 H Creatinine 2.90 H Estim Creat Clear Calc 23.97 L Est GFR (MDRD) Non-Af 21 L BUN/Creatinine Ratio 20.4 H Glucose 266 H Calcium 9.5 Troponin T High Sens 1137 H* D NT pro BNP II 1961 H Radiography Chest X-Ray - ED: 1 View, Read by ED Physician and Unchanged (Largely unchanged from 12/07/2024) Diagnostic Testing: Clinical Impression(s) from Imaging Studies Chest X-Ray 12/15/24 13:10 IMPRESSION: Hyperinflation. No acute abnormality is seen. Reading Location: [facility] Chest x-ray independently interpreted myself showing cardiomegaly. Largely unchanged from previous compared on 12/07/2024 EKG Initial EKG: Attestation: I personally reviewed and interpreted this EKG as follows: Interpretation: Sinus Rhythm Comments: EKG independently interpreted by myself showing evidence of normal sinus rhythm. Ventricular rate 98, NJ 186, QTc 357. Left axis deviation. Compared to previous EKG on 12/07/2024 ST elevation in lead III largely unchanged. Concerned that there may be slightly more elevation in lead II and V6 compared to 12/07 concerning for new ischemia. STEMI alert activated. Prior EKG tracings: available for review (12/07/24) Management Discussion w/another healthcare provider: Hospitalist and Sanitation Technician Discharge Plan Dx/Rx/DC Orders Clinical Impression: Chest pain Disposition Disposition: Acute Care Hospital [facility] What to do if you have Problems For any increased pain, shortness of breath, bleeding, nausea or vomiting, chestpain, or any unexpected problems, contact your Primary Care Provider. Call [facility] ([phone]) or report to the closest Emergency Room. Call 911 if necessary. 12/15/24 9319 <Electronically signed by Payal Weldon DO> Cosigner Signature (if applicable): CC: Dr. Marycarmen Rodriguez DO ~ Signed [facility] Work Phone: 1(182) 126-611208-15-2025 Radiology Diagnostic study [facility]08-08-2025 Discharge summary Author Alex Sanon [facility] Note Date/Time December 08, 2024 12: 26pm [facility] Medical Records Department [address] [place] [address] Discharge Summary 12/08/24 1222 MR#: [id number] Acct: [id number] Name: ERIBERTO RICO Rep #:[id number] : 1945 79 From: Alex Sanon MD PCP: Dr. Marycarmen Rodriguez DO Status:ADM EDMUND Location: [place] [address] Providers Date of Admission: 12/07/24 Primary Care Physician: Dr. Marycarmen Rodriguez DO Reason For Visit: SHORTNESS OF BREATH. 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 Patient was found to have elevated D-dimer admitted to monitored bed VQ scan ordered for subsequent evaluation 1. Exertional dyspnea ? Patient was found to have elevated D-dimer admitted to monitored bed VQ scan ordered for subsequent evaluation ? Patient VQ scan came back with low probability for pulmonary embolism. Decision was made to discharge patient back to his ECF 2. Recent acute inferior wall ND ? This was complicated by PLV dissection underwent emergency On 11/30 which showed subacute stent thrombosis at the proximal RCA s/p balloon angioplasty, along with thrombus embolization to the right posterior lateral ventricular branch s/p 2 new drug-eluting stents. Patient was subsequently readmitted following his initial evaluation with similar complaints seen in consultation bycardiology assessment was patient was having coronary vasospasms. Ranexa added to patient treatment regimen. 3. Physical deconditioning ? Patient was recently discharged to a care home facility plan is for patient to be discharged back once pulmonary embolism is ruled out 4. Depression with anxiety ? Patient is on fluoxetine as well as Remeron at night plan is to continue 5. Diabetes mellitus type II -patient's oral hypoglycemics held. Placed on long acting insulin, Accu-Cheks a.c. and at bedtime and covered with sliding scale insulin 6.Chronic kidney disease stage IIIb ? Patient kidney function at baseline 7. DVT prophylaxis ? Subcu heparin Medications at Discharge Home Medications aspirin 81 [...] 650 mg PO Q6H PRN Pain 1-02/0910/12/23 atorvastatin 40 mg tablet 40 mg PO QHS CHOLESTEROL #90 tabs 06/14/24 nitroglycerin 0.4 mg sublingual tablet 0.4 mg sublingual Q5-15M PRN CHEST PAIN #25 tabs 06/14/24 pantoprazole 40 mg tablet,delayed release 40 mg PO DAILY GERD #90 tabs 06/14/24 potassium chloride 20 mEq tablet,extended release(part/cryst) 60 meq (3 x 20 mEq) PO BID supplement #180 tabs 06/14/24 amlodipine 5 mg tablet 5 mg PO QPM blood pressure 10/25/24 metolazone 2.5 mg tablet 2.5 mg PO QDAY diuretic 10/25/24 metoprolol succinate 25 mg tablet,extended release 24 hr 25 mg PO DAILY blood pressure #30 tabs 10/25/24 ticagrelor 90 mg tablet (Brilinta) 90 mg PO BID #60 tabs 12/02/24 empagliflozin 10 mg tablet (Jardiance) 10 mg PO DAILY #90 tabs 12/06/24 furosemide 40 mg tablet 40 mg PO DAILY #90 tabs 12/06/24 insulin lispro 100 unit/mL subcutaneous pen (Humalog KwikPen (U-100) Insulin) See Protocol subcut ACHS #0 mL 12/06/24 ranolazine 500 mg tablet,extended release,12 hr 500 mg PO BID #180 tabs 12/06/24 spironolactone 25 mg tablet 25 mg PO DAILY #90 tabs 12/06/24 Hospital Course Summary of Care Provided Minutes Spent on Discharge: 35 Physical Exam Narrative GENERAL: cooperative HEENT: Atraumatic; normocephalic EYES; Anicteric, Normal Conjunctiva NECK; supple, normal thyroid, RESPIRATORY: Diminished to auscultation CARDIOVASCULAR: Regular S1 S2, GI: soft, normoactive bowel sounds, : No Renal angle tenderness; EXTREMITIES: No edema, no clubbing, MUSCULOSKELETAL: no muscle wasting NEURO: Awake; no lateralizing signs. SKIN: No Rash PSYCH; Flat affect Weight / BMI Weight Weight: 98.883 kg Body Mass Index (BMI) 32.1 ABG / Lab / Microbiology Data 12/08/24 06:30 12/08/24 06:30 Laboratory: Laboratory Results - last 24 hr 12/07/24 11:04: D-Dimer Quant (PE/DVT) 1.61 H*, Magnesium 2.4 H, NT pro BNP II 2037 H 12/07/24 13:00: Troponin T Hi Sens 2 Hr 6442 H* 12/07/24 16:35: Troponin T Hi Sens 4Hr 6556 H* 12/07/24 17:36: POC Glucose 187 H 12/07/24 23:07: POC Glucose 222 H 12/08/24 06:30: WBC 10.5, RBC 4.47 L, Hgb 12.9 L, Hct 39.2 L, MCV 87.7, MCH 28.9, MCHC 32.9, RDW Std Deviation 42.8, RDW Coeff of Adrian 13.4, Plt Count 178, MPV 13.2 H, Immature Gran % (Auto) 0.900, Neut % (Auto) 74.1 H, Lymph % (Auto) 11.4 L, Curry % (Auto) 12.1 H, Eos % (Auto) 1.0, Baso % (Auto) 0.5, Absolute Neuts (auto) 7.8 H, Absolute Lymphs (auto) 1.20, Nucleated RBC % 0, Sodium 134, Potassium 3.4, Chloride 95 L, Carbon Dioxide 21.2, Anion Gap 18 H, BUN 44 H, Creatinine 2.84 H, Estim Creat Clear Calc 24.45 L, Est GFR (MDRD) Non-Af 22 L, BUN/Creatinine Ratio 15.6, Glucose 178 H, Calcium 9.6 12/08/24 06:57: POC Glucose 185 H 12/08/24 11:32: POC Glucose 249 H Radiography Diagnostic Testing: Radiology Impression Lung Scan-VQ NM 12/07/24 16:32 IMPRESSION: Low probability scan for pulmonary embolism. Reading Location: [facility] Instructions Discharge Activity: Return to Normal Activity Call your doctor if you observe: Fever of 101 or Higher, Shortness of breath, Fainting spells and Chest pain DC O2, CPAP, BIPAP Needs Home O2 Discharge instructions: No Meaningful Use Info Meaningful Use Meaningful Use Diagnoses (Choose all that apply): None applicable Discharge Plan Admission Admit Date/Time: 12/07/24 16:24 Attending Provider: Alex Sanon Primary Care Provider: aMrycarmen Rodriguez Consulting Providers: Shaan Santos Instructions Patient Instructions: ED Chest Pain, Uncertain Cause Additional Instructions / Restrictions: The chief legal officer wanted to make sure you are taking isosorbide, spironolactone, Lasix and Jardiance. Follow-up with the cardiology office. Discharge Orders/Prescriptions Prescriptions: Continued fluoxetine 40 mg capsule 80 mg PO DAILY 90 Days Qty: 180 magnesium oxide 400 mg (241.3 mg magnesium) tablet 800 mg PO DAILY cetirizine 10 mg tablet 10 mg PO DAILY PRN (Reason: Allergic Reaction) cholecalciferol (vitamin D3) 25 mcg (1,000 unit) tablet 25 mcg PO DAILY amlodipine 5 mg tablet 5 mg PO QPM metolazone 2.5 mg tablet 2.5 mg PO QDAY metoprolol succinate 25 mg tablet extended release 24 hr 25 mg PO DAILY Qty: 30 11RF aspirin 81 MG tablet 81 mg PO DAILY@0800 cyanocobalamin (vitamin B-12) 1,000 MCG capsule 1,000 mcg PO DAILY Qty: 0 acetaminophen 325 MG tablet 650 mg PO Q6H PRN (Reason: Pain -02/09) ticagrelor [Brilinta] 90 mg Tablet 90 mg PO BID Qty: 60 11RF furosemide 40 mg Tablet 40 mg PO DAILY Qty: 90 0RF spironolactone 25 mg Tablet 25 mg PO DAILY Qty: 90 0RF insulin lispro [Humalog KwikPen Insulin] 100 unit/mL Insulin Pen See Protocol subcut ACHS Qty: 0 0RF Protocol: 3. Sliding Scale Insulin Med Dosing Condition: 150-189 mg/dl = 1 unit Condition: 190-229 mg/dl = 2 units Condition: 230-269 mg/dl = 3 units Condition: 270-309 mg/dl = 4 units Condition: 310-349 mg/dl = 5 units Condition: 350-399 mg/dl = 6 units Condition: 400-449 mg/dl = 7 units Condition: Greater than 449 call physician Protocol Text: Suggested for: - Patients on Total Daily Insulin Dose of 37-55 units - Obese, infected, or steroid patients MEDIUM DOSING ALGORITHIM ranolazine 500 mg Tablet Extended Release 12 Hr 500 mg PO BID Qty: 180 0RF Jardiance 10 mg Tablet 10 mg PO DAILY Qty: 90 0RF mirtazapine [Remeron] 15 mg tablet 15 mg PO QHS nitroglycerin 0.4 mg tablet, sublingual 0.4 mg SUBLINGUAL Q5-15M PRN (Reason: CHEST PAIN) Qty: 25 3RF atorvastatin 40 mg tablet 40 mg PO QHS Qty: 90 3RF potassium chloride 20 mEq tablet,ER particles/crystals 60 meq PO BID Qty: 180 3RF pantoprazole 40 mg tablet,delayed release (DR/EC) 40 mg PO DAILY Qty: 90 3RF Referrals / Follow Up: Marycarmen Rodriguez DO [Primary Care Provider] - Within 2 Weeks Disposition Disposition (needs filled in before D/C Order can be placed): [facility] Charges/Coding Visit Charges Inpatient E&M: 37736 Disch Hosp >30min 12/08/24 1226 <Electronically signed by Alex Sanon MD> Cosigner Signature (if applicable): CC: Dr. Alex Sanon MD; Dr. Marycarmen Rodriguez, DO~ Signed [facility] Work Phone: 1([phone]) 188-831408-08-2025 [facility]08-08-2025 Nuclear medicine Diagnostic study [facility]08-08-2025 Progress note Author Alex Sanon [facility] Note Date/Time December 08, 2024 9:2 1am [facility] Medical Records Department [address] [place] [address] Progress Note - Hospitalist 12/08/24 0734 MR#: [id number] Acct: [id number] Name: ERIBERTO RICO Rep #:[id number] : 1945 79 From: Alex Sanon MD PCP: Dr. Marycarmen Rodriguez DO Status:ADM EDMUND Location: [place] [address] Subjective Subjective Patient is a 79-year-old gentleman with recent history of acute inferior STEMI 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 Patient was found to have elevated D-dimer admitted to monitored bed VQ scan ordered for subsequent evaluation Objective Data Objective Data Vital Signs: Vital Signs Temp Pulse Resp BP Pulse Ox O2 Del Method O2 Flow Rate 98.0 F 74 16 132/64 H 98 Room Air 2 12/08/24 05:00 12/08/24 05:00 12/08/24 05:00 12/08/24 05:00 12/08/24 05:00 12/08/24 05:00 12/07/24 11:05 FiO2 21 12/08/24 01:20 Oxygen Flow Rate (L/min) 2 Oxygen Delivery Method Room Air Weight: 98.883 kg Body Mass Index (BMI) 32.1 Intake & Output: Intake and Output for Last 24 Hours 12/06/24 12/07/24 12/08/24 23:59 23:59 23:59 Output Total 300 / 300 Balance -300 / -300 Lab / Micro Data 12/08/24 06:30 12/08/24 06:30 Labs: Laboratory Results - last 24 hr 12/07/24 11:04: WBC 11.9 H, RBC 4.54 L, Hgb 13.3, Hct 39.1 L, MCV 86.1, MCH 29.3, MCHC 34.0, RDW Std Deviation 41.4, RDW Coeff of Adrian 13.4, Plt Count 190, MPV 13.0 H, Immature Gran % (Auto) 0.700, Neut % (Auto) 79.0 H, Lymph % (Auto) 7.9 L, Curry % (Auto) 11.5 H, Eos % (Auto) 0.6, Baso % (Auto) 0.3, Absolute Neuts(auto) 9.4 H, Absolute Lymphs (auto) 0.94, Nucleated RBC % 0, D-Dimer Quant (PE/DVT) 1.61 H*, Sodium 132 L, Potassium 4.1, Chloride 94 L, Carbon Dioxide 20.9 L, Anion Gap 18 H, BUN 40 H, Creatinine 2.76 H, Estim Creat Clear Calc 25.62 L, Est GFR (MDRD) Non- Af 23 L, BUN/Creatinine Ratio 14.5, Glucose 209 H, Calcium 9.5, Magnesium 2.4 H, Troponin T High Sens 7122 H* D, NT pro BNP II 2037H 12/07/24 13:00: Troponin T Hi Sens 2 Hr 6442 H* 12/07/24 16:35: Troponin T Hi Sens 4Hr 6556 H* 12/07/24 17:36: POC Glucose 187 H 12/07/24 23:07: POC Glucose 222 H 12/08/24 06:57: POC Glucose 185 H Radiography Diagnostic Testing: Radiology Impression Chest X-Ray 12/07/24 10:59 IMPRESSION: No acute cardiopulmonary process Reading Location: [facility] Physical Exam Narrative GENERAL: cooperative HEENT: Atraumatic; normocephalic EYES; Anicteric, Normal Conjunctiva NECK; supple, normal thyroid, RESPIRATORY: Diminished to auscultation CARDIOVASCULAR: Regular S1 S2, GI: soft, normoactive bowel sounds, : No Renal angle tenderness; EXTREMITIES: No edema, no clubbing, MUSCULOSKELETAL: no muscle wasting NEURO: Awake; no lateralizing signs. SKIN: No Rash PSYCH; Flat affect Assessment & Plan Assessment/Plan (1) DEAN (dyspnea on exertion): PLAN: Plan Patient is a 79-year-old gentleman with recent history of acute inferior STEMI 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 Patient was found to have elevated D-dimer admitted to monitored bed VQ scan ordered for subsequent evaluation 1. Exertional dyspnea ? Patient was found to have elevated D-dimer admitted to monitored bed VQ scan ordered for subsequent evaluation 2. Recent acute inferior wall ND ? This was complicated by PLV dissection underwent emergency On 11/30 which showed subacute stent thrombosis at the proximal RCA s/p balloon angioplasty, along with thrombus embolization to the right posterior lateral ventricular branch s/p 2 new drug-eluting stents. Patient was subsequently readmitted following his initial evaluation with similar complaints seen in consultation bycardiology assessment was patient was having coronary vasospasms. Ranexa added to patient treatment regimen. 3. Physical deconditioning ? Patient was recently discharged to a care home facility plan is for patient to be discharged back once pulmonary embolism is ruled out 4. Depression with anxiety ? Patient is on fluoxetine as well as Remeron at night plan is to continue 5. Diabetes mellitus type II -patient's oral hypoglycemics held. Placed on long acting insulin, Accu-Cheks a.c. and at bedtime and covered with sliding scale insulin 6.Chronic kidney disease stage IIIb ? Patient kidney function at baseline 7. DVT prophylaxis ? Subcu heparin Charges/Coding Visit Charges Inpatient E&M: 49458 Subs Hosp L2 12/08/24 0921 <Electronically signed by Alex Sanon MD> Cosigner Signature (if applicable): CC: ~ Signed [facility] Work Phone: 1(417) 605-404508-07-2025 History and physical note Author Shaan Santos [facility] Note Date/Time December 07, 2024 4:4 8pm [facility] Medical Records Department [address] [place] [address] H&P Exam - Hospitalist 12/07/24 1633 MR#: [id number] Acct: [id number] Name: ERIBERTO RICO Rep #:[id number] : 1945 79 From: Shaan Santos DO PCP: Dr. Marycarmen Rodriguez, DO Status:ADM EDMUND Location: [place] [address] HPI - General General Date of Service: 12/07/24 HPI Narrative ERIBERTO BODAGER, is a 79 M who presents with shortness of breath. This is a 79-year-old male who was admitted on November 30 with a STEMI. Patient had had an inferior STEMI. Patient underwent a left heart catheterization that showed a subacute stent thrombosis of the proximal RCA that underwent angioplasty. Patient had been on clopidogrel but was started on ticagrelor. He developed AKIand his ARB was discontinued. Patient developed acute onset of facial paresthesias and a stroke team was called. Patient underwent stroke workup including MRI and MRA that were negative. Neurology felt as a stress response related to cardiac event and not TIA or nor stroke. Patient was discharged thenon the second. He came back later that dayWith chest pain again concerning for a STEMI alert. He underwent a left heart catheterization that showed patent vessels and cardiology recommended continuing dual platelet therapy, high intensity statins, beta-jeffrey and nitrates. Patient was to be continued on furosemide as well as empagliflozin. And patient was discharged on the 6. Patient came back today with shortness of breath. Patient underwent a workup that showed no acute process but his D-dimer was elevated at 1.61. Given his CKD, a CTA of his chest could not be safely performed without compromising his kidney function further. He did have troponins that were elevated at 7122 and subsequently down to 6442. This is actually an improvement where his troponins back on the second were greater than 10,000. He is not experiencing any chest pain at this time. He denies any lower extremity edema. He is currently on room air and breathing comfortably. [facility] Medical History Anxiety Depression Diabetes Kidney disease Former smoker Atrial fibrillation Myocardial infarct Coronary artery disease Hypertension TIA (transient ischemic attack) Anemia Shortness of breath Unstable angina Fatigue Syncope [...] TIA (transient ischemic attack) Obstructive sleep apnea Atherosclerotic heart disease [place] coronary artery w/angina pectoris Type 2 diabetes [...] Q6H PRN Pain 1-1 10/12/23 Unknown History atorvastatin 40 mg tablet 40 mg PO QHS CHOLESTEROL #90 tabs 06/14/24 Unknown Rx nitroglycerin 0.4 mg sublingual 0.4 mg sublingual Q5-1 5M PRN CHEST 06/14/24 Unknown Rx tablet PAIN #25 tabs pantoprazole 40 mg tablet,delayed 40 mg PO DAILY GERD #90 tabs 06/14/24 Unknown Rx release potassium chloride 20 mEq 60 meq (3 x 20 mEq) PO BID 0 06/14/24 Unknown Rx tablet,extended release(part/cryst) supplement #180 ta bs amlodipine 5 mg tablet 5 mg PO QPM blood pressure 0 10/25/24 Unknown History metolazone 2.5 mg tablet 2.5 mg PO QDAY diuretic 10/02 09/24 Unknown History metoprolol succinate 25 mg 25 mg PO DAILY blood pressu re #30 10/25/24 Unknown Rx tablet,extended release 24 hr tabs ticagrelor 90 mg tablet (Brilinta) 90 mg PO BID #60 ta bs 12/02/24 Unknown Rx empagliflozin 10 mg tablet 10 mg PO DAILY #90 tabs 10/25 Unknown Rx (Jardiance) furosemide 40 mg tablet 40 mg PO DAILY #90 tabs 10/25 Unknown Rx insulin lispro 100 unit/mL See Protocol subcut ACHS #0 mL 12/06/24 Unknown Rx subcutaneous pen (Humalog KwikPen (U-100) Insulin) ranolazine 500 mg tablet,extended 500 mg PO BID #180 t abs 12/06/24 Unknown Rx release,12 hr spironolactone 25 mg tablet 25 mg PO DAILY #90 tabs Unknown Rx Allergy/AdvReac Type Severity Reaction Status Date / Time No Known Allergies Allergy Verified 12/07/24 10:57 Family History Father Parkinsons disease Prostate cancer Mother Osteoporosis Surgical History Presence of coronary angioplasty implant and graft (11/27/24) History of tympanostomy tube placement History of percutaneous transluminal coronary angioplasty (08/18/18) History of herniorrhaphy Hx of cholecystectomy History of tonsillectomy History of prostatectomy Social History household members: spouse and none housing: senior care Smoking Status: Former smoker quit date: 05/03/98 pack-years: 50 how long ago did patient quit smokin years ago alcohol intake: never substance use type: does not use caffeine: Yes Type: coffee and tea Number of servings: 6 ROS ROS Narrative All review of systems were negative except as mentioned above in the history of present illness and the other review of systems. Vital Signs Vital Signs Vital Signs: 12/07/24 10:52 12/07/24 11:05 12/07/24 12:00 Temperature 36.8 C Temperature Source Oral Pulse Rate 85 74 Respiratory Rate 24 H 17 Blood Pressure 138/88 H 121/89 H Blood Pressure Mean 104 99 Pulse Ox 99 99 97 Oxygen Delivery Method Nasal Cannula Nasal Cannula Oxygen Flow Rate (L/min) 2 12/07/24 12:20 12/07/24 12:58 12/07/24 14:29 Temperature Temperature Source Pulse Rate 73 73 Respiratory Rate 16 Blood Pressure 129/92 H 128/95 H 114/61 Blood Pressure Mean 106 78 Pulse Ox 98 Oxygen Delivery Method Oxygen Flow Rate (L/min) 12/07/24 14:29 12/07/24 15:00 12/07/24 15:13 Temperature 36.8 C 36.8 C Temperature Source Pulse Rate 22 L 22 L Respiratory Rate 22 H 22 H Blood Pressure 114/61 132/93 H 114/61 Blood Pressure Mean 78 106 78 Pulse Ox 99 97 99 Oxygen Delivery Method Oxygen Flow Rate (L/min) 12/07/24 16:00 Temperature Temperature Source Pulse Rate Respiratory Rate Blood Pressure Blood Pressure Mean Pulse Ox 97 Oxygen Delivery Method Oxygen Flow Rate (L/min) Weight Weight: 102.603 kg Body Mass Index (BMI) 33.4 Physical Exam Narrative POCUS: Indication is for shortness of breath. Using the emergency room POCUS machine (which does not include a phased-array probe). Use curvilinear via fastprotocol, is liver was visualized and his IVC was difficult to over the visualized but from what I could tell did appear to be collapsible with respirations. Doing the pulmonary windows, patient did have some small pleural effusion on his right base as well as some B-lines noted in the right base. Butotherwise no fluid visualized elsewhere. And doing a bedside DVT scan showed that his is deep venous system was collapsible from his groin through his calf bilaterally and no DVT was visualized. Const alert and no apparent distress Constitutional Narrative: No respiratory distress. No conversational dyspnea. Cooperative. Able to sit up on his own. HEENT normocephalic and head/scalp atraumatic Resp normal respiratory effort, no retractions, no use of accessory muscles and clearto auscultation bilaterally Cardio regular rate, regular rhythm, S1 normal heart sound and S2 normal heart sound GI normal to inspection, nondistended, normoactive bowel sounds, soft to palpation,non-tender and non-distended Extremity normal to inspection and full ROM Extremity Narrative: No calf tenderness Neuro Sensorium / Orientation: awake and alert Psych affect normal Results Lab / Micro Data 12/07/24 11:04 12/07/24 11:04 Labs: Laboratory Results - last 24 hr 12/07/24 11:04: WBC 11.9 H, RBC 4.54 L, Hgb 13.3, Hct 39.1 L, MCV 86.1, MCH 29.3, MCHC 34.0, RDW Std Deviation 41.4, RDW Coeff of Adrian 13.4, Plt Count 190, MPV 13.0 H, Immature Gran % (Auto) 0.700, Neut % (Auto) 79.0 H, Lymph % (Auto) 7.9 L, Curry % (Auto) 11.5 H, Eos % (Auto) 0.6, Baso % (Auto) 0.3, Absolute Neuts(auto) 9.4 H, Absolute Lymphs (auto) 0.94, Nucleated RBC % 0, D-Dimer Quant (PE/DVT) 1.61 H*, Sodium 132 L, Potassium 4.1, Chloride 94 L, Carbon Dioxide 20.9 L, Anion Gap 18 H, BUN 40 H, Creatinine 2.76 H, Estim Creat Clear Calc 25.62 L, Est GFR (MDRD) Non- Af 23 L, BUN/Creatinine Ratio 14.5, Glucose 209 H, Calcium 9.5, Magnesium 2.4 H, Troponin T High Sens 7122 H* D, NT pro BNP II 2037H 12/07/24 13:00: Troponin T Hi Sens 2 Hr 6442 H* Imaging Radiology Impression Chest X-Ray 12/07/24 10:59 IMPRESSION: No acute cardiopulmonary process Reading Location: [facility] Assessment & Plan Assessment/Plan (1) Shortness of breath: PLAN: Transient. His exam is unremarkable. Bedside POCUS evaluation of his venous system of the lower extremities does not reveal any DVTs. This however does not rule out an acute PE. His D-dimer is elevated but that could be related with PE but may also be his normal. No prior D-dimer was ordered to compare to. And given his CKD, we cannot safely do a CT angiogram. Therefore patient will have a VQ scan. If his VQ scan is negative then I feel that he canbe discharged. My suspicion for this being PE is rather low but will perform the VQ scan to further evaluate. No other clinical evidence to suggest an etiology of his shortness of breath at this time but he does feel better. PLAN: Plan CAD: Status post recent STEMI. Continue with ticagrelor, aspirin, atorvastatin,ranolazine HFpEF: Compensated this time. Continue with furosemide, spironolactone, empagliflozin, metoprolol succinate. Not a candidate for JOSELO inhibitor/angiotensin receptor jeffrey given CKD. DM2: Continue with sliding scale insulin. Depression: Continue with fluoxetine Insomnia: Continue with Remeron VTE prophylaxis: Low risk given current observation status. CODE STATUS: Verified with the patient. Patient wishes to be full code Case discussed with the patient's daughter at bedside. Charges/Coding Visit Charges Inpatient E&M: 70984 Init Hosp L3 12/07/24 1648 <Electronically signed by Shaan Santos DO> Cosigner Signature (if applicable): CC: Dr. Shaan Santos DO; Dr. Marycarmen Rodriguez DO~ Signed [facility] Work Phone: 1(400) 742-338508-07-2025 Radiology Diagnostic study [facility]08-06-2025 Consult note Author Cyndie Frye [facility] Note Date/Time December 06, 2024 12: 22pm [facility] Medical Records Department [address] [place] [id number] Counseling Note - Pharmacy 12/06/24 1222 MR#: [id number] Acct: [id number] Name: ERIBERTO RICO Rep #:[id number] : 1945 79 From: Cyndie Frye PCP: Dr. Marycarmen Rodriguez DO Status:ADM IN Location: [place] [address] Pharmacy [place] Med Reconciliation Pharmacy Service has performed discharge [...] 650 mg PO Q6H PRN Pain 1-02/0910/12/23 atorvastatin 40 mg tablet 40 mg PO QHS CHOLESTEROL #90 tabs 06/14/24 nitroglycerin 0.4 mg sublingual tablet 0.4 mg sublingual Q5-15M PRN CHEST PAIN #25 tabs 06/14/24 pantoprazole 40 mg tablet,delayed release 40 mg PO DAILY GERD #90 tabs 06/14/24 potassium chloride 20 mEq tablet,extended release(part/cryst) 60 meq (3 x 20 mEq) PO BID supplement #180 tabs 06/14/24 amlodipine 5 mg tablet 5 mg PO QPM blood pressure 10/25/24 metolazone 2.5 mg tablet 2.5 mg PO QDAY diuretic 10/25/24 metoprolol succinate 25 mg tablet,extended release 24 hr 25 mg PO DAILY blood pressure #30 tabs 10/25/24 ticagrelor 90 mg tablet (Brilinta) 90 mg PO BID #60 tabs 12/02/24 empagliflozin 10 mg tablet (Jardiance) 10 mg PO DAILY #90 tabs 12/06/24 furosemide 40 mg tablet 40 mg PO DAILY #90 tabs 12/06/24 insulin lispro 100 unit/mL subcutaneous pen (Humalog KwikPen (U-100) Insulin) See Protocol subcut ACHS #0 mL 12/06/24 ranolazine 500 mg tablet,extended release,12 hr 500 mg PO BID #180 tabs 12/06/24 spironolactone 25 mg tablet 25 mg PO DAILY #90 tabs 12/06/24 12/06/24 1222 <Electronically signed by Cyndie Frye> Date _ Cyndie Frye Cosigner Signature (if applicable): Date CC: ~ Signed [facility] Work Phone: 1(567) 137-811108-06-2025 Hospital Discharge instructionsAdditional Instructions Date of Discharge: 12/06/24[facility] Work Phone: 1(722) 765-375208-06-2025 Discharge summary Author Alex Sanon [facility] Note Date/Time December 06, 2024 11: 59am [facility] Medical Records Department [address] [place] [address] Transfer to [facility] MR#: [id number] Acct: [id number] Name: ERIBERTO RICO Rep #:[id number] : 1945 79 From: Alex Sanon MD PCP: Dr. Marycarmen Rodriguez, DO Status:ADM IN Certification of patient admission REQUIRED AT TIME OF ADMISSION. I CERTIFY THAT POST-HOSPITAL ECF SERVICES ARE REQUIRED TO BE GIVEN ON AN IN-PATIENT BASIS BECAUSE OF THE ABOVE NAMED PATIENT'S NEED FOR INTERMEDIATE CARE ON A CONTINUING BASIS FOR THE CONDITION(S) FOR WHICH HE/SHE WAS RECEIVING IN-PATIENT HOSPITAL SERVICES PRIOR TO HIS/HER TRANSFER TO THE F. 12/06/24 1159<Electronically signed by Alex Sanon MD> Diet Diet Order/Speech Therapy: INPATIENT Hospital Diet / Speech Therapy Order(s) 12/02/24 21:59 Diet: Cardiac - Heart Healthy Routine Orders/Code Status Code Status: Full Code DC O2, CPAP, BIPAP needs Home O2 Discharge instructions: Yes Type of respiratory needs?: CPAP CPAP instructions: CPAP at night Wound(s) bilateral elbows: Wound Type: Abrasion left knee: Wound Type: Abrasion left wrist: Wound Type: Surgical Incision right groin: Wound Type: Post heart cath site Therapies Physical Therapy: Eval and Treat Occupational Therapy: Eval and Treat Problem/Diagnosis (1) STEMI (ST elevation myocardial infarction): Status: Resolved Code(s): I21.3 - ST elevation (STEMI) myocardial infarction of unspecified site Plan Patient is a 79-year-old male with recent acute inferior 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 STEMI alert was called admitted to a monitored bed for subsequent management 1. Recent history of acute inferior wall ND with persistent EKG changes; episode of ventricular tachycardia; history of CAD with stenting, chronic HFrEF,hypertension, hyperlipidemia ? Cardiology following. Patient with complex recent medical history. In short,had stent placed to proximal RCA on 11/27. Presented with STEMI on 11/30 and emergent cath showed subacute stent thrombosis at the proximal RCA s/p balloon angioplasty, along with thrombus embolization to the right posterior lateral ventricular branch s/p 2 new drug-eluting stents. Plavix was discontinued and Brilinta was started along with baby aspirin. Discharged midday on 12/02 but presented again as a STEMI alert on the evening of 12/02. Per cardiology, suspecthis mild chronic ST elevations are secondary to recent inferior wall infarction. Low likelihood of coronary vasospasm. Patient did have episode of ventricular tachycardia of about 30 beats on morning of 12/04. Potassium low so is being repleted aggressively as below. Per cardiology, will hold off on antiarrhythmictherapy for now. Continue Brilinta, aspirin, statin, metoprolol, nitrate and Ranexa. Okay to restart home Lasix on 12/04 and will start Jardiance as well per cardiology. Continue cardiac monitoring. ? 12/06/2024; patient remains on guideline directed medical therapy 2. Hypokalemia ? Corrected per protocol 3. BEVERLY on CKD stage IIIb, improving ? Creatinine 2.90 on admit. Baseline is around 1.9. Creatinine peaked at 3.16 on 12/01 and then began downtrending, so patient was discharged on 12/02 with plan to hold Lasix and follow-up outpatient BMP. Creatinine is steadily downtrending, most recent creatinine 2.53 on 12/04. Resuming home Lasix and starting Jardiance on 12/04 as above. Continue to monitor daily BMP and urine output. No need for inpatient nephrology consult currently but cardiology recommending outpatient nephrology follow-up shortly after discharge. ? 12/05/2024 creatinine stable at 2.5 4. Class I obesity with BMI of 33.1 ? Complicating care weight loss advised 5. Diabetes mellitus type II -patient's oral hypoglycemics held. Placed on long acting insulin, Accu-Cheks a.c. and at bedtime and covered with sliding scale insulin 6. GERD ? On PPI 7. Anxiety/depression/insomnia: Continue home fluoxetine and mirtazapine. 8. Chronic pain syndrome ? Continue home hydrocodone?acetaminophen 3 times daily as needed. 9. DVT prophylaxis - Heparin subcu 10. Physical deconditioning?age related frailty ? Requested for PT OT eval and aids social worker to assist with discharge planning ? 12/06/2024 plan is for patient to be discharged to a care home facility pending bed availability as well as insurance precertification Time spent in the patient's overall evaluation,decision-making process, review of diagnostic data, adjustment of management, discussion with other providers, nursing nursing and ancillary staff involved in patient's care documentation, 36 Minutes Allergies/Procedures Done in Hospital Allergies No Known Allergies Allergy (Verified 11/26/24 17:43) Type of Care/Length of Stay Estimated LOS: Convalescent Care Less Than 30 days Type of Care Needed: Skilled Rehab Potential: Good Prognosis: Good Additional Orders/Day of Discharge Day of Discharge: 12/06/24 Discharge Plan Admission Admit Date/Time: 12/03/24 02:01 Attending Provider: Alex Sanon Primary Care Provider: Marycarmen Rodriguez Consulting Providers: Abraham Ridley; Mickey Simpson; Ramonita Herron Discharge Orders/Prescriptions Prescriptions: New furosemide 40 mg Tablet 40 mg PO DAILY Qty: 90 0RF spironolactone 25 mg Tablet 25 mg PO DAILY Qty: 90 0RF insulin lispro [Humalog KwikPen Insulin] 100 unit/mL Insulin Pen See Protocol subcut ACHS Qty: 0 0RF Protocol: 3. Sliding Scale Insulin Med Dosing Condition: 150-189 mg/dl = 1 unit Condition: 190-229 mg/dl = 2 units Condition: 230-269 mg/dl = 3 units Condition: 270-309 mg/dl = 4 units Condition: 310-349 mg/dl = 5 units Condition: 350-399 mg/dl = 6 units Condition: 400-449 mg/dl = 7 units Condition: Greater than 449 call physician Protocol Text: Suggested for: - Patients on Total Daily Insulin Dose of 37-55 units - Obese, infected, or steroid patients MEDIUM DOSING ALGORITHIM ranolazine 500 mg Tablet Extended Release 12 Hr 500 mg PO BID Qty: 180 0RF Jardiance 10 mg Tablet 10 mg PO DAILY Qty: 90 0RF Continued fluoxetine 40 mg capsule 80 mg PO DAILY 90 Days Qty: 180 magnesium oxide 400 mg (241.3 mg magnesium) tablet 800 mg PO DAILY cetirizine 10 mg tablet 10 mg PO DAILY PRN (Reason: Allergic Reaction) cholecalciferol (vitamin D3) 25 mcg (1,000 unit) tablet 25 mcg PO DAILY amlodipine 5 mg tablet 5 mg PO QPM metolazone 2.5 mg tablet 2.5 mg PO QDAY metoprolol succinate 25 mg tablet extended release 24 hr 25 mg PO DAILY Qty: 30 11RF aspirin 81 MG tablet 81 mg PO DAILY@0800 cyanocobalamin (vitamin B-12) 1,000 MCG capsule 1,000 mcg PO DAILY Qty: 0 acetaminophen 325 MG tablet 650 mg PO Q6H PRN (Reason: Pain -02/09) ticagrelor [Brilinta] 90 mg Tablet 90 mg PO BID Qty: 60 11RF mirtazapine [Remeron] 15 mg tablet 15 mg PO QHS nitroglycerin 0.4 mg tablet, sublingual 0.4 mg SUBLINGUAL Q5-15M PRN (Reason: CHEST PAIN) Qty: 25 3RF atorvastatin 40 mg tablet 40 mg PO QHS Qty: 90 3RF potassium chloride 20 mEq tablet,ER particles/crystals 60 meq PO BID Qty: 180 3RF pantoprazole 40 mg tablet,delayed release (DR/EC) 40 mg PO DAILY Qty: 90 3RF Discontinued glimepiride 4 mg tablet 4 mg PO QDAY hydrocodone-acetaminophen 5-325 mg tablet 1 tab PO TID PRN (Reason: pain) isosorbide mononitrate 60 mg tablet extended release 24 hr 60 mg PO BID Qty: 90 3RF furosemide 80 mg Tablet 80 mg PO DAILY Qty: 30 6RF losartan 100 mg tablet 100 mg PO DAILY Qty: 90 3RF spironolactone 50 mg tablet 50 mg PO DAILY Qty: 90 3RF Referrals / Follow Up: Marcin Araujo MD [Med Staff - Active Staff] - Within 1 Month Marycarmen Rodriguez DO [Primary Care Provider] - Within 2 Weeks Disposition Disposition (needs filled in before D/C Order can be placed): [facility] 12/06/24 0407 <Electronically signed by Alex Sanon MD> Cosigner Signature (if applicable): CC: Dr. Abraham Ridley DO; Dr. Mickey Simpson MD; Dr. Marycarmen Rodriguez DO;Dr. Ramonita Herron MD ~ [facility] Work Phone: 1(591) 228-734008-06-2025 Discharge summary Author Alex Sanon [facility] Note Date/Time December 06, 2024 11: 55am [facility] Medical Records Department [address] [place] [address] Transfer to Extended Care MR#: [id number] Acct: [id number] Name: ERIBERTO RICO Rep #:[id number] : 1945 79 From: Alex Sanon MD PCP: Dr. Marycarmen Rodriguez, DO Status:ADM IN Certification of patient admission REQUIRED AT TIME OF ADMISSION. I CERTIFY THAT POST-HOSPITAL ECF SERVICES ARE REQUIRED TO BE GIVEN ON AN IN-PATIENT BASIS BECAUSE OF THE ABOVE NAMED PATIENT'S NEED FOR INTERMEDIATE CARE ON A CONTINUING BASIS FOR THE CONDITION(S) FOR WHICH HE/SHE WAS RECEIVING IN-PATIENT HOSPITAL SERVICES PRIOR TO HIS/HER TRANSFER TO THE ECF. 12/06/24 1155<Electronically signed by Alex Sanon MD> Diet Diet Order/Speech Therapy: INPATIENT Hospital Diet / Speech Therapy Order(s) 12/02/24 21:59 Diet: Cardiac - Heart Healthy Routine Orders/Code Status Code Status: Full Code DC O2, CPAP, BIPAP needs Home O2 Discharge instructions: No Wound(s) bilateral elbows: Wound Type: Abrasion left knee: Wound Type: Abrasion left wrist: Wound Type: Surgical Incision right groin: Wound Type: Post heart cath site Therapies Physical Therapy: Eval and Treat Occupational Therapy: Eval and Treat Problem/Diagnosis (1) STEMI (ST elevation myocardial infarction): Status: Resolved Code(s): I21.3 - ST elevation (STEMI) myocardial infarction of unspecified site Plan Patient is a 79-year-old male with recent acute inferior 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 STEMI alert was called admitted to a monitored bed for subsequent management 1. Recent history of acute inferior wall ND with persistent EKG changes; episode of ventricular tachycardia; history of CAD with stenting, chronic HFrEF,hypertension, hyperlipidemia ? Cardiology following. Patient with complex recent medical history. In short,had stent placed to proximal RCA on 11/27. Presented with STEMI on 11/30 and emergent cath showed subacute stent thrombosis at the proximal RCA s/p balloon angioplasty, along with thrombus embolization to the right posterior lateral ventricular branch s/p 2 new drug-eluting stents. Plavix was discontinued and Brilinta was started along with baby aspirin. Discharged midday on 12/02 but presented again as a STEMI alert on the evening of 12/02. Per cardiology, suspecthis mild chronic ST elevations are secondary to recent inferior wall infarction. Low likelihood of coronary vasospasm. Patient did have episode of ventricular tachycardia of about 30 beats on morning of 12/04. Potassium low so is being repleted aggressively as below. Per cardiology, will hold off on antiarrhythmictherapy for now. Continue Brilinta, aspirin, statin, metoprolol, nitrate and Ranexa. Okay to restart home Lasix on 12/04 and will start Jardiance as well per cardiology. Continue cardiac monitoring. ? 12/06/2024; patient remains on guideline directed medical therapy 2. Hypokalemia ? Corrected per protocol 3. BEVERLY on CKD stage IIIb, improving ? Creatinine 2.90 on admit. Baseline is around 1.9. Creatinine peaked at 3.16 on 12/01 and then began downtrending, so patient was discharged on 12/02 with plan to hold Lasix and follow-up outpatient BMP. Creatinine is steadily downtrending, most recent creatinine 2.53 on 12/04. Resuming home Lasix and starting Jardiance on 12/04 as above. Continue to monitor daily BMP and urine output. No need for inpatient nephrology consult currently but cardiology recommending outpatient nephrology follow-up shortly after discharge. ? 12/05/2024 creatinine stable at 2.5 4. Class I obesity with BMI of 33.1 ? Complicating care weight loss advised 5. Diabetes mellitus type II -patient's oral hypoglycemics held. Placed on long acting insulin, Accu-Cheks a.c. and at bedtime and covered with sliding scale insulin 6. GERD ? On PPI 7. Anxiety/depression/insomnia: Continue home fluoxetine and mirtazapine. 8. Chronic pain syndrome ? Continue home hydrocodone?acetaminophen 3 times daily as needed. 9. DVT prophylaxis - Heparin subcu 10. Physical deconditioning?age related frailty ? Requested for PT OT eval and aids social worker to assist with discharge planning ? 12/06/2024 plan is for patient to be discharged to a care home facility pending bed availability as well as insurance precertification Time spent in the patient's overall evaluation,decision-making process, review of diagnostic data, adjustment of management, discussion with other providers, nursing nursing and ancillary staff involved in patient's care documentation, 36 Minutes Allergies/Procedures Done in Hospital Allergies No Known Allergies Allergy (Verified 11/26/24 17:43) Type of Care/Length of Stay Estimated LOS: Convalescent Care Less Than 30 days Type of Care Needed: Skilled Rehab Potential: Good Prognosis: Good Additional Orders/Day of Discharge Day of Discharge: 12/06/24 Discharge Plan Admission Admit Date/Time: 12/03/24 02:01 Attending Provider: Alex Sanon Primary Care Provider: Marycarmen Rodriguez Consulting Providers: Abraham Ridley; Mickey Simpson; Ramonita Herron Discharge Orders/Prescriptions Prescriptions: New furosemide 40 mg Tablet 40 mg PO DAILY Qty: 90 0RF spironolactone 25 mg Tablet 25 mg PO DAILY Qty: 90 0RF insulin lispro [Humalog KwikPen Insulin] 100 unit/mL Insulin Pen See Protocol subcut ACHS Qty: 0 0RF Protocol: 3. Sliding Scale Insulin Med Dosing Condition: 150-189 mg/dl = 1 unit Condition: 190-229 mg/dl = 2 units Condition: 230-269 mg/dl = 3 units Condition: 270-309 mg/dl = 4 units Condition: 310-349 mg/dl = 5 units Condition: 350-399 mg/dl = 6 units Condition: 400-449 mg/dl = 7 units Condition: Greater than 449 call physician Protocol Text: Suggested for: - Patients on Total Daily Insulin Dose of 37-55 units - Obese, infected, or steroid patients MEDIUM DOSING ALGORITHIM ranolazine 500 mg Tablet Extended Release 12 Hr 500 mg PO BID Qty: 180 0RF Jardiance 10 mg Tablet 10 mg PO DAILY Qty: 90 0RF Continued fluoxetine 40 mg capsule 80 mg PO DAILY 90 Days Qty: 180 magnesium oxide 400 mg (241.3 mg magnesium) tablet 800 mg PO DAILY cetirizine 10 mg tablet 10 mg PO DAILY PRN (Reason: Allergic Reaction) cholecalciferol (vitamin D3) 25 mcg (1,000 unit) tablet 25 mcg PO DAILY amlodipine 5 mg tablet 5 mg PO QPM metolazone 2.5 mg tablet 2.5 mg PO QDAY metoprolol succinate 25 mg tablet extended release 24 hr 25 mg PO DAILY Qty: 30 11RF aspirin 81 MG tablet 81 mg PO DAILY@0800 cyanocobalamin (vitamin B-12) 1,000 MCG capsule 1,000 mcg PO DAILY Qty: 0 acetaminophen 325 MG tablet 650 mg PO Q6H PRN (Reason: Pain -02/09) ticagrelor [Brilinta] 90 mg Tablet 90 mg PO BID Qty: 60 11RF mirtazapine [Remeron] 15 mg tablet 15 mg PO QHS nitroglycerin 0.4 mg tablet, sublingual 0.4 mg SUBLINGUAL Q5-15M PRN (Reason: CHEST PAIN) Qty: 25 3RF atorvastatin 40 mg tablet 40 mg PO QHS Qty: 90 3RF potassium chloride 20 mEq tablet,ER particles/crystals 60 meq PO BID Qty: 180 3RF pantoprazole 40 mg tablet,delayed release (DR/EC) 40 mg PO DAILY Qty: 90 3RF Discontinued glimepiride 4 mg tablet 4 mg PO QDAY hydrocodone-acetaminophen 5-325 mg tablet 1 tab PO TID PRN (Reason: pain) isosorbide mononitrate 60 mg tablet extended release 24 hr 60 mg PO BID Qty: 90 3RF furosemide 80 mg Tablet 80 mg PO DAILY Qty: 30 6RF losartan 100 mg tablet 100 mg PO DAILY Qty: 90 3RF spironolactone 50 mg tablet 50 mg PO DAILY Qty: 90 3RF Referrals / Follow Up: Marcin Araujo MD [Med Staff - Active Staff] - Within 1 Month Marycarmen Rodriguez DO [Primary Care Provider] - Within 2 Weeks Disposition Disposition (needs filled in before D/C Order can be placed): [facility] 12/06/24 1155 <Electronically signed by Alex Sanon MD> Cosigner Signature (if applicable): CC: Dr. Abraham Ridley DO; Dr. Mickey Simpson MD; Dr. Marycarmen Rodriguez DO;Dr. Ramonita Herron MD ~ [facility] Work Phone: [phone]) 216-132708-06-2025 Discharge summary Author Alex Sanon [facility] Note Date/Time December 06, 2024 11: 53am [facility] Medical Records Department [address] [place] [address] Discharge Summary 12/06/24 1146 MR#: [id number] Acct: [id number] Name: ERIBERTO RICO Rep #:[id number] : 1945 79 From: Alex Sanon MD PCP: Dr. Marycarmen Rodriguez DO Status:ADM IN Location: [place] [address] Providers Date of Admission: 12/03/24 Date of Discharge: 12/06/24 Primary Care Physician: Dr. 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 STEMI alert was called admitted to a monitored bed for subsequent management 1. Recent history of acute inferior wall ND with persistent EKG changes; episode of ventricular tachycardia; history of CAD with stenting, chronic HFrEF,hypertension, hyperlipidemia ? Cardiology following. Patient with complex recent medical history. In short,had stent placed to proximal RCA on 11/27. Presented with STEMI on 11/30 and emergent cath showed subacute stent thrombosis at the proximal RCA s/p balloon angioplasty, along with thrombus embolization to the right posterior lateral ventricular branch s/p 2 new drug-eluting stents. Plavix was discontinued and Brilinta was started along with baby aspirin. Discharged midday on 12/02 but presented again as a STEMI alert on the evening of 12/02. Per cardiology, suspecthis mild chronic ST elevations are secondary to recent inferior wall infarction. Low likelihood of coronary vasospasm. Patient did have episode of ventricular tachycardia of about 30 beats on morning of 12/04. Potassium low so is being repleted aggressively as below. Per cardiology, will hold off on antiarrhythmictherapy for now. Continue Brilinta, aspirin, statin, metoprolol, nitrate and Ranexa. Okay to restart home Lasix on 12/04 and will start Jardiance as well per cardiology. Continue cardiac monitoring. ? 12/06/2024; patient remains on guideline directed medical therapy 2. Hypokalemia ? Corrected per protocol 3. BEVERLY on CKD stage IIIb, improving ? Creatinine 2.90 on admit. Baseline is around 1.9. Creatinine peaked at 3.16 on 12/01 and then began downtrending, so patient was discharged on 12/02 with plan to hold Lasix and follow-up outpatient BMP. Creatinine is steadily downtrending, most recent creatinine 2.53 on 12/04. Resuming home Lasix and starting Jardiance on 12/04 as above. Continue to monitor daily BMP and urine output. No need for inpatient nephrology consult currently but cardiology recommending outpatient nephrology follow-up shortly after discharge. ? 12/05/2024 creatinine stable at 2.5 4. Class I obesity with BMI of 33.1 ? Complicating care weight loss advised 5. Diabetes mellitus type II -patient's oral hypoglycemics held. Placed on long acting insulin, Accu-Cheks a.c. and at bedtime and covered with sliding scale insulin 6. GERD ? On PPI 7. Anxiety/depression/insomnia: Continue home fluoxetine and mirtazapine. 8. Chronic pain syndrome ? Continue home hydrocodone?acetaminophen 3 times daily as needed. 9. DVT prophylaxis - Heparin subcu 10. Physical deconditioning?age related frailty ? Requested for PT OT eval and aids social worker to assist with discharge planning ? 12/06/2024 plan is for patient to be discharged to a care home facility pending bed availability as well as insurance precertification Time spent in the patient's overall evaluation,decision-making process, review of diagnostic data, adjustment of management, discussion with other providers, nursing nursing and ancillary staff involved in patient's care documentation, 36 Minutes Medications at Discharge Home Medications aspirin 81 [...] 650 mg PO Q6H PRN Pain 1-02/0910/12/23 atorvastatin 40 mg tablet 40 mg PO QHS CHOLESTEROL #90 tabs 06/14/24 nitroglycerin 0.4 mg sublingual tablet 0.4 mg sublingual Q5-15M PRN CHEST PAIN #25 tabs 06/14/24 pantoprazole 40 mg tablet,delayed release 40 mg PO DAILY GERD #90 tabs 06/14/24 potassium chloride 20 mEq tablet,extended release(part/cryst) 60 meq (3 x 20 mEq) PO BID supplement #180 tabs 06/14/24 amlodipine 5 mg tablet 5 mg PO QPM blood pressure 10/25/24 metolazone 2.5 mg tablet 2.5 mg PO QDAY diuretic 10/25/24 metoprolol succinate 25 mg tablet,extended release 24 hr 25 mg PO DAILY blood pressure #30 tabs 10/25/24 ticagrelor 90 mg tablet (Brilinta) 90 mg PO BID #60 tabs 12/02/24 empagliflozin 10 mg tablet (Jardiance) 10 mg PO DAILY #90 tabs 12/06/24 furosemide 40 mg tablet 40 mg PO DAILY #90 tabs 12/06/24 insulin lispro 100 unit/mL subcutaneous pen (Humalog KwikPen (U-100) Insulin) See Protocol subcut ACHS #0 mL 12/06/24 ranolazine 500 mg tablet,extended release,12 hr 500 mg PO BID #180 tabs 12/06/24 spironolactone 25 mg tablet 25 mg PO DAILY #90 tabs 12/06/24 Physical Exam Narrative GENERAL: cooperative HEENT: Atraumatic; normocephalic EYES; Anicteric, Normal Conjunctiva NECK; supple, normal thyroid, RESPIRATORY: Diminished to auscultation CARDIOVASCULAR: Regular S1 S2, GI: soft, normoactive bowel sounds, : No Renal angle tenderness; EXTREMITIES: No edema, no clubbing, MUSCULOSKELETAL: no muscle wasting NEURO: Awake; no lateralizing signs. SKIN: No Rash PSYCH; Flat affect Weight / BMI Weight Weight: 101.3 kg Body Mass Index (BMI) 33.0 ABG / Lab / Microbiology Data 12/06/24 Unknown 12/06/24 05:55 Laboratory: Laboratory Results - last 24 hr 12/05/24 12:12: POC Glucose 194 H 12/05/24 16:59: POC Glucose 183 H 12/05/24 23:05: POC Glucose 196 H 12/06/24 05:55: Sodium 135, Potassium 3.5, Chloride 97 L, Carbon Dioxide 21.9, Anion Gap 17 H, BUN 43 H, Creatinine 2.53 H, Estim Creat Clear Calc 1.34 L*, Est GFR (MDRD) Non-Af 25 L, BUN/Creatinine Ratio 17.0, Glucose 161 H, Calcium 9.0, Phosphorus 2.9, Magnesium 2.4 H 12/06/24 06:37: POC Glucose 165 H 12/06/24 11:10: POC Glucose 197 H 12/06/24 : WBC 9.4, RBC 3.98 L, Hgb 11.6 L, Hct 35.0 L, MCV 87.9, MCH 29.1, MCHC33.1, RDW Std Deviation 44.0 H, RDW Coeff of Adrian 13.6, Plt Count 140 L, MPV 12.9H, Immature Gran % (Auto) 0.600, Neut % (Auto) 72.7 H, Lymph % (Auto) 11.6 L, Curry % (Auto) 12.9 H, Eos % (Auto) 2.0, Baso % (Auto) 0.2, Absolute Neuts (auto) 6.8, Absolute Lymphs (auto) 1.09, Nucleated RBC % 0 D/C Instructions DC O2, CPAP, BIPAP Needs Home O2 Discharge instructions: No Meaningful Use Info Meaningful Use Meaningful Use Diagnoses (Choose all that apply): None applicable Discharge Plan Admission Admit Date/Time: 12/03/24 02:01 Attending Provider: Alex Sanon Primary Care Provider: Marycarmen Rodriguez Consulting Providers: Abraham Ridley; Mickey Simpson; Ramonita Herron Discharge Orders/Prescriptions Prescriptions: New furosemide 40 mg Tablet 40 mg PO DAILY Qty: 90 0RF spironolactone 25 mg Tablet 25 mg PO DAILY Qty: 90 0RF insulin lispro [Humalog KwikPen Insulin] 100 unit/mL Insulin Pen See Protocol subcut ACHS Qty: 0 0RF Protocol: 3. Sliding Scale Insulin Med Dosing Condition: 150-189 mg/dl = 1 unit Condition: 190-229 mg/dl = 2 units Condition: 230-269 mg/dl = 3 units Condition: 270-309 mg/dl = 4 units Condition: 310-349 mg/dl = 5 units Condition: 350-399 mg/dl = 6 units Condition: 400-449 mg/dl = 7 units Condition: Greater than 449 call physician Protocol Text: Suggested for: - Patients on Total Daily Insulin Dose of 37-55 units - Obese, infected, or steroid patients MEDIUM DOSING ALGORITHIM ranolazine 500 mg Tablet Extended Release 12 Hr 500 mg PO BID Qty: 180 0RF Jardiance 10 mg Tablet 10 mg PO DAILY Qty: 90 0RF Continued fluoxetine 40 mg capsule 80 mg PO DAILY 90 Days Qty: 180 magnesium oxide 400 mg (241.3 mg magnesium) tablet 800 mg PO DAILY cetirizine 10 mg tablet 10 mg PO DAILY PRN (Reason: Allergic Reaction) cholecalciferol (vitamin D3) 25 mcg (1,000 unit) tablet 25 mcg PO DAILY amlodipine 5 mg tablet 5 mg PO QPM metolazone 2.5 mg tablet 2.5 mg PO QDAY metoprolol succinate 25 mg tablet extended release 24 hr 25 mg PO DAILY Qty: 30 11RF aspirin 81 MG tablet 81 mg PO DAILY@0800 cyanocobalamin (vitamin B-12) 1,000 MCG capsule 1,000 mcg PO DAILY Qty: 0 acetaminophen 325 MG tablet 650 mg PO Q6H PRN (Reason: Pain -02/09) ticagrelor [Brilinta] 90 mg Tablet 90 mg PO BID Qty: 60 11RF mirtazapine [Remeron] 15 mg tablet 15 mg PO QHS nitroglycerin 0.4 mg tablet, sublingual 0.4 mg SUBLINGUAL Q5-15M PRN (Reason: CHEST PAIN) Qty: 25 3RF atorvastatin 40 mg tablet 40 mg PO QHS Qty: 90 3RF potassium chloride 20 mEq tablet,ER particles/crystals 60 meq PO BID Qty: 180 3RF pantoprazole 40 mg tablet,delayed release (DR/EC) 40 mg PO DAILY Qty: 90 3RF Discontinued glimepiride 4 mg tablet 4 mg PO QDAY hydrocodone-acetaminophen 5-325 mg tablet 1 tab PO TID PRN (Reason: pain) isosorbide mononitrate 60 mg tablet extended release 24 hr 60 mg PO BID Qty: 90 3RF furosemide 80 mg Tablet 80 mg PO DAILY Qty: 30 6RF losartan 100 mg tablet 100 mg PO DAILY Qty: 90 3RF spironolactone 50 mg tablet 50 mg PO DAILY Qty: 90 3RF Referrals / Follow Up: Marcin Araujo MD [Med Staff - Active Staff] - Within 1 Month Marycarmen Rodriguez DO [Primary Care Provider] - Within 2 Weeks Disposition Disposition (needs filled in before D/C Order can be placed): [facility] Charges/Coding Visit Charges Inpatient E&M: 33192 Disch Hosp >30min 12/06/24 1153 <Electronically signed by Alex Sanon MD> Cosigner Signature (if applicable): CC: Dr. Alex Sanon MD; Dr. Marycarmen Rodriguez DO~ Signed [facility] Work Phone: 1(106) 847-576208-06-2025 [facility]08-06-2025 Progress note Author Alex [facility] Note Date/Time December 06, 2024 8:4 0am [facility] Medical Records Department [address] [place] [address] Progress Note - Hospitalist 12/06/24 0838 MR#: [id number] Acct: [id number] Name: ERIBERTO RCIO Rep #:[id number] : 1945 79 From: Alex Sanon MD PCP: Dr. Marycarmen Rodriguez DO Status:ADM IN Location: [place] [address] Reason for Visit Chief Complaint: Chest Pain with STEMI alert. Subjective Subjective Patient seen remains physically deconditioned. Was seen in consultation by physical therapy recommendation is for patient to be discharged to a care home facility case management subsequently consulted Objective Data Objective Data Vital Signs: Vital Signs Temp Pulse Resp BP Pulse Ox O2 Del Method O2 Flow Rate 98.1 F 69 14 121/77 H 98 Room Air 2 12/06/24 08:02 12/06/24 08:08 12/06/24 08:02 12/06/24 08:02 12/06/24 08:02 12/06/24 08:02 12/04/24 08:07 FiO2 21 12/06/24 00:25 Oxygen Flow Rate (L/min) 2 Oxygen Delivery Method Room Air Weight: 101.3 kg Body Mass Index (BMI) 33.0 Intake & Output: Intake and Output for Last 24 Hours 12/04/24 12/05/24 12/06/24 23:59 23:59 23:59 Intake Total 640.00 / 640.00 100 / 100 Output Total 4200 / 4800 1600 / 2200 1000 / 1000 Balance -3560.00 / -4160.00 -1500 / -2100 -1000 / -1000 Lab / Micro Data 12/06/24 Unknown 12/06/24 05:55 Labs: Laboratory Results - last 24 hr 12/05/24 12:12: POC Glucose 194 H 12/05/24 16:59: POC Glucose 183 H 12/05/24 23:05: POC Glucose 196 H 12/06/24 05:55: Sodium 135, Potassium 3.5, Chloride 97 L, Carbon Dioxide 21.9, Anion Gap 17 H, BUN 43 H, Creatinine 2.53 H, Estim Creat Clear Calc 1.34 L*, Est GFR (MDRD) Non-Af 25 L, BUN/Creatinine Ratio 17.0, Glucose 161 H, Calcium 9.0, Phosphorus 2.9, Magnesium 2.4 H 12/06/24 06:37: POC Glucose 165 H 12/06/24 : WBC 9.4, RBC 3.98 L, Hgb 11.6 L, Hct 35.0 L, MCV 87.9, MCH 29.1, MCHC33.1, RDW Std Deviation 44.0 H, RDW Coeff of Adrian 13.6, Plt Count 140 L, MPV 12.9H, Immature Gran % (Auto) 0.600, Neut % (Auto) 72.7 H, Lymph % (Auto) 11.6 L, Curry % (Auto) 12.9 H, Eos % (Auto) 2.0, Baso % (Auto) 0.2, Absolute Neuts (auto) 6.8, Absolute Lymphs (auto) 1.09, Nucleated RBC % 0 Physical Exam Narrative GENERAL: cooperative HEENT: Atraumatic; normocephalic EYES; Anicteric, Normal Conjunctiva NECK; supple, normal thyroid, RESPIRATORY: Diminished to auscultation CARDIOVASCULAR: Regular S1 S2, GI: soft, normoactive bowel sounds, : No Renal angle tenderness; EXTREMITIES: No edema, no clubbing, MUSCULOSKELETAL: no muscle wasting NEURO: Awake; no lateralizing signs. SKIN: No Rash PSYCH; Flat affect Assessment & Plan Assessment/Plan (1) STEMI (ST elevation myocardial infarction): PLAN: Plan Patient is a 79-year-old male with recent acute inferior 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 STEMI alert was called admitted to a monitored bed for subsequent management 1. Recent history of acute inferior wall ND with persistent EKG changes; episode of ventricular tachycardia; history of CAD with stenting, chronic HFrEF,hypertension, hyperlipidemia ? Cardiology following. Patient with complex recent medical history. In short,had stent placed to proximal RCA on 11/27. Presented with STEMI on 11/30 and emergent cath showed subacute stent thrombosis at the proximal RCA s/p balloon angioplasty, along with thrombus embolization to the right posterior lateral ventricular branch s/p 2 new drug-eluting stents. Plavix was discontinued and Brilinta was started along with baby aspirin. Discharged midday on 12/02 but presented again as a STEMI alert on the evening of 12/02. Per cardiology, suspecthis mild chronic ST elevations are secondary to recent inferior wall infarction. Low likelihood of coronary vasospasm. Patient did have episode of ventricular tachycardia of about 30 beats on morning of 12/04. Potassium low so is being repleted aggressively as below. Per cardiology, will hold off on antiarrhythmictherapy for now. Continue Brilinta, aspirin, statin, metoprolol, nitrate and Ranexa. Okay to restart home Lasix on 12/04 and will start Jardiance as well per cardiology. Continue cardiac monitoring. ? 12/06/2024; patient remains on guideline directed medical therapy 2. Hypokalemia ? Corrected per protocol 3. BEVERLY on CKD stage IIIb, improving ? Creatinine 2.90 on admit. Baseline is around 1.9. Creatinine peaked at 3.16 on 12/01 and then began downtrending, so patient was discharged on 12/02 with plan to hold Lasix and follow-up outpatient BMP. Creatinine is steadily downtrending, most recent creatinine 2.53 on 12/04. Resuming home Lasix and starting Jardiance on 12/04 as above. Continue to monitor daily BMP and urine output. No need for inpatient nephrology consult currently but cardiology recommending outpatient nephrology follow-up shortly after discharge. ? 12/05/2024 creatinine stable at 2.5 4. Class I obesity with BMI of 33.1 ? Complicating care weight loss advised 5. Diabetes mellitus type II -patient's oral hypoglycemics held. Placed on long acting insulin, Accu-Cheks a.c. and at bedtime and covered with sliding scale insulin 6. GERD ? On PPI 7. Anxiety/depression/insomnia: Continue home fluoxetine and mirtazapine. 8. Chronic pain syndrome ? Continue home hydrocodone?acetaminophen 3 times daily as needed. 9. DVT prophylaxis - Heparin subcu 10. Physical deconditioning?age related frailty ? Requested for PT OT eval and aids social worker to assist with discharge planning ? 12/06/2024 plan is for patient to be discharged to a care home facility pending bed availability as well as insurance precertification Time spent in the patient's overall evaluation,decision-making process, review of diagnostic data, adjustment of management, discussion with other providers, nursing nursing and ancillary staff involved in patient's care documentation, 36 Minutes Charges/Coding Visit Charges Inpatient E&M: 19710 Subs Hosp L2 Date medically ready for discharge: 12/06/24 Reason for DC delay: Precert pending from insurance 12/06/24 0840 <Electronically signed by Alex Sanon MD> Cosigner Signature (if applicable): CC: ~ Signed [facility] Work Phone: 1(471) 262-998708-06-2025 Progress note Author Marcin Araujo [facility] Note Date/Time December 06, 2024 7:5 1am [facility] Medical Records Department [address] [place] [address] Progress Note - Cardiology 12/06/24 0747 MR#: [id number] Acct: [id number] Name: ERIBERTO RICO Rep #:[id number] : 1945 79 From: Marcin Araujo MD PCP: Dr. Marycarmen Rodriguez, DO Status:ADM IN Location: [place] [address] Subjective Subjective Patient seen and evaluated. Appears to be doing better this morning. Telemetrydemonstrates no significant arrhythmias Objective Data Vital Signs: Vital Signs Temp Pulse Resp BP Pulse Ox O2 Del Method O2 Flow Rate 97.9 F 60 16 109/74 98 Room Air 2 12/06/24 03:20 12/06/24 03:20 12/06/24 03:20 12/06/24 03:20 12/06/24 03:20 12/06/24 03:20 12/04/24 08:07 FiO2 21 12/06/24 00:25 Oxygen Flow Rate (L/min) 2 Oxygen Delivery Method Room Air Weight: 223 lb 5.252 oz Body Mass Index (BMI) 33.0 Intake & Output: Intake and Output for Last 24 Hours 12/04/24 12/05/24 12/06/24 23:59 23:59 23:59 Intake Total 640.00 / 640.00 100 / 100 Output Total 4200 / 4800 1600 / 2200 1000 / 1000 Balance -3560.00 / -4160.00 -1500 / -2100 -1000 / -1000 Lab / Micro Data 12/06/24 Unknown 12/06/24 05:55 Labs: Laboratory Results - last 24 hr 12/05/24 12:12: POC Glucose 194 H 12/05/24 16:59: POC Glucose 183 H 12/05/24 23:05: POC Glucose 196 H 12/06/24 05:55: Sodium 135, Potassium 3.5, Chloride 97 L, Carbon Dioxide 21.9, Anion Gap 17 H, BUN 43 H, Creatinine 2.53 H, Estim Creat Clear Calc 1.34 L*, Est GFR (MDRD) Non-Af 25 L, BUN/Creatinine Ratio 17.0, Glucose 161 H, Calcium 9.0, Phosphorus 2.9, Magnesium 2.4 H 12/06/24 06:37: POC Glucose 165 H 12/06/24 : WBC 9.4, RBC 3.98 L, Hgb 11.6 L, Hct 35.0 L, MCV 87.9, MCH 29.1, MCHC33.1, RDW Std Deviation 44.0 H, RDW Coeff of Adrian 13.6, Plt Count 140 L, MPV 12.9H, Immature Gran % (Auto) 0.600, Neut % (Auto) 72.7 H, Lymph % (Auto) 11.6 L, Curry % (Auto) 12.9 H, Eos % (Auto) 2.0, Baso % (Auto) 0.2, Absolute Neuts (auto) 6.8, Absolute Lymphs (auto) 1.09, Nucleated RBC % 0 Cardiology Labs/Tests 12/06/24 05:55: Sodium 135, Potassium 3.5, Chloride 97 L, Carbon Dioxide 21.9, Anion Gap 17 H, BUN 43 H, Creatinine 2.53 H, Est GFR (MDRD) Non-Af 25 L, BUN/Creatinine Ratio 17.0, Glucose 161 H, Calcium 9.0, Phosphorus 2.9, Magnesium2.4 H 12/06/24 : WBC 9.4, RBC 3.98 L, Hgb 11.6 L, Hct 35.0 L, MCV 87.9, MCH 29.1, MCHC33.1, Plt Count 140 L, MPV 12.9 H, Immature Gran % (Auto) 0.600, Neut % (Auto) 72.7 H, Lymph % (Auto) 11.6 L, Curry % (Auto) 12.9 H, Eos % (Auto) 2.0, Baso % (Auto) 0.2, Absolute Neuts (auto) 6.8, Nucleated RBC % 0 Rhythm: EKG: ECHO: Stress Test: Cardiac Cath: PCI: CT Surgery: Holter monitor: EPS: PPM: CXR: Chest CT Scan: Physical Exam Const alert, oriented x3 and no apparent distress General Appearance: cooperative HEENT hearing grossly normal bilaterally Head and Scalp: atraumatic Eyes EOMs intact bilaterally Neck General: normal visual inspection Chest inspection of chest normal and palpation of chest normal Resp normal respiratory effort Auscultation: clear to auscultation bilaterally Cardio regular rate, regular rhythm, S1 normal heart sound and S2 normal heart sound Jugular Venous Distention: JVD GI normal to inspection, nondistended, normoactive bowel sounds Extremity normal capillary refill and no pedal edema Peripheral Pulses: Yes pulses 2+ throughout and femoral pulses present Skin no rashes or lesions noted Neuro oriented x3 and CN's II-XII intact bilaterally Psych Appearance: grossly normal and appropriate Assessment & Plan Assessment/Plan (1) History of acute inferior wall ND: PLAN: Patient underwent cardiac catheterization and the previously placed stent was noted to be patent. (2) Coronary artery vasospasm: PLAN: - Patient with recent acute thrombotic inferior STEMI, that was complicated with distal PLV dissection that was treated with 2 overlapping stents. - Patient came back with acute chest pain with EKG changes suggestive of anotherinferior STEMI, cardiac cath as listed above showed patent stents in the RCA in addition to patent stents in the PLV with mild disease in the PDA and mild in-stent restenosis in the RCA. The stents were all noted to be patent. I suspectthat the EKG changes were secondary to the akinetic inferior wall with Q waves and presenting with ST elevation. - Patient on aspirin, Brilinta, high potency statins, metoprolol will continue all the above including his isosorbide. Will also continue Ranexa 500 mg twice a day We will like to ambulate him around today and see how he does by the afternoon and then discharge. (3) CHF (congestive heart failure): QUALIFIERS: Heart failure type: diastolic Heart failure chronicity: acute on chronic Qualified Code(s): I50.33 - Acute on chronic diastolic (congestive) heart failure PLAN: - Patient with recent echo showed EF of 45 to 50% with wall motion normalities secondary to recent acute inferolateral STEMI. - LVEDP done yesterday showed LVEDP of 23 mmHg - patient was discharged off diuresis given CKD. Will add spironolactone 25 mg to help with potassium sparing - Will restart but with Lasix 40 once daily, will add Jardiance 10 mg p.o. dailygiven underlying diabetes and for kidney protection. - We recommend nephrology consultation. This can also be done as an outpatient. (4) Dyslipidemia: PLAN: - On statins, will continue. (5) Nonsustained monomorphic ventricular tachycardia: PLAN: Nonsustained ventricular tachycardia. No recurrence of the above. His potassium is 3.5 this morning. Would add spironolactone to his regimen. Would prefer that he get a 48-hour Holter monitor placed on prior to discharge. Patient needs aggressive potassium replacement to keep potassium over 4. Would prefer at this level before the patient is discharged. Will also keep magnesiumover 2. 12/06/24 0751 <Electronically signed by Marcin Araujo MD> Cosigner Signature (if applicable): CC: ~ Signed [facility] Work Phone: [phone]) 272-593508-05-2025 Progress note Author Alex Sanon [facility] Note Date/Time December 05, 2024 10: 29am [facility] Medical Records Department [address] [place] [address] Progress Note - Hospitalist 12/05/24 1019 MR#: [id number] Acct: [id number] Name: ERIBERTO RICO Rep #:[id number] : 1945 79 From: Alex Sanon MD PCP: Dr. Marycarmen Rodriguez, DO Status:ADM IN Location: [place] [address] Reason for Visit Chief Complaint: Chest Pain with STEMI alert. Subjective Subjective Patient is a 79-year-old male with recent acute inferior 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 STEMI alert was called admitted to a monitored bed for subsequent management Objective Data Objective Data Vital Signs: Vital Signs Temp Pulse Resp BP Pulse Ox O2 Del Method O2 Flow Rate 97.6 F L 70 18 123/80 H 96 Room Air 2 12/05/24 08:06 12/05/24 08:28 12/05/24 08:06 12/05/24 08:06 12/05/24 09:30 12/05/24 09:30 12/04/24 08:07 FiO2 21 12/04/24 22:55 Oxygen Flow Rate (L/min) 2 Oxygen Delivery Method Room Air Weight: 101.8 kg Body Mass Index (BMI) 33.1 Intake & Output: Intake and Output for Last 24 Hours 12/03/24 12/04/24 12/05/24 23:59 23:59 23:59 Intake Total 640.00 / 640.00 Output Total 2090 / 3290 4200 / 4800 1100 / 1100 Balance -2090 / -3050 -3560.00 / -4160.00 -1100 / -1100 Lab / Micro Data 12/04/24 05:02 12/05/24 05:34 Labs: Laboratory Results - last 24 hr 12/04/24 11:16: POC Glucose 207 H 12/04/24 16:44: POC Glucose 147 H 12/04/24 22:20: POC Glucose 151 H 12/05/24 05:34: Sodium 137, Potassium 3.2 L, Chloride 96 L, Carbon Dioxide 22.4,Anion Gap 19 H, BUN 47 H, Creatinine 2.57 H, Estim Creat Clear Calc 27.41 L, EstGFR (MDRD) Non-Af 25 L, BUN/Creatinine Ratio 18.2, Glucose 155 H, Calcium 9.1 12/05/24 06:40: POC Glucose 190 H Physical Exam Narrative GENERAL: cooperative HEENT: Atraumatic; normocephalic EYES; Anicteric, Normal Conjunctiva NECK; supple, normal thyroid, RESPIRATORY: Diminished to auscultation CARDIOVASCULAR: Regular S1 S2, GI: soft, normoactive bowel sounds, : No Renal angle tenderness; EXTREMITIES: No edema, no clubbing, MUSCULOSKELETAL: no muscle wasting NEURO: Awake; no lateralizing signs. SKIN: No Rash PSYCH; Flat affect Assessment & Plan Assessment/Plan (1) STEMI (ST elevation myocardial infarction): PLAN: Plan Patient is a 79-year-old male with recent acute inferior 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 STEMI alert was called admitted to a monitored bed for subsequent management 1. Recent history of acute inferior wall ND with persistent EKG changes; episode of ventricular tachycardia; history of CAD with stenting, chronic HFrEF,hypertension, hyperlipidemia ? Cardiology following. Patient with complex recent medical history. In short,had stent placed to proximal RCA on 11/27. Presented with STEMI on 11/30 and emergent cath showed subacute stent thrombosis at the proximal RCA s/p balloon angioplasty, along with thrombus embolization to the right posterior lateral ventricular branch s/p 2 new drug-eluting stents. Plavix was discontinued and Brilinta was started along with baby aspirin. Discharged midday on 12/02 but presented again as a STEMI alert on the evening of 12/02. Per cardiology, suspecthis mild chronic ST elevations are secondary to recent inferior wall infarction. Low likelihood of coronary vasospasm. Patient did have episode of ventricular tachycardia of about 30 beats on morning of 12/04. Potassium low so is being repleted aggressively as below. Per cardiology, will hold off on antiarrhythmictherapy for now. Continue Brilinta, aspirin, statin, metoprolol, nitrate and Ranexa. Okay to restart home Lasix on 12/04 and will start Jardiance as well per cardiology. Continue cardiac monitoring. ? 12/05/2024 2. Hypokalemia ? Corrected per protocol 3. BEVERLY on CKD stage IIIb, improving ? Creatinine 2.90 on admit. Baseline is around 1.9. Creatinine peaked at 3.16 on 12/01 and then began downtrending, so patient was discharged on 12/02 with plan to hold Lasix and follow-up outpatient BMP. Creatinine is steadily downtrending, most recent creatinine 2.53 on 12/04. Resuming home Lasix and starting Jardiance on 12/04 as above. Continue to monitor daily BMP and urine output. No need for inpatient nephrology consult currently but cardiology recommending outpatient nephrology follow-up shortly after discharge. ? 12/05/2024 creatinine stable at 2.5 4. Class I obesity with BMI of 33.1 ? Complicating care weight loss advised 5. Diabetes mellitus type II -patient's oral hypoglycemics held. Placed on long acting insulin, Accu-Cheks a.c. and at bedtime and covered with sliding scale insulin 6. GERD ? On PPI 7. Anxiety/depression/insomnia: Continue home fluoxetine and mirtazapine. 8. Chronic pain syndrome ? Continue home hydrocodone?acetaminophen 3 times daily as needed. 9. DVT prophylaxis - Heparin subcu 10. Physical deconditioning ? Requested for PT OT eval and aids social worker to assist with discharge planning Time spent in the patient's overall evaluation,decision-making process, review of diagnostic data, adjustment of management, discussion with other providers, nursing nursing and ancillary staff involved in patient's care documentation, 38 Minutes Charges/Coding Visit Charges Inpatient E&M: 47908 Subs Hosp L2 12/05/24 1029 <Electronically signed by Alex Sanon MD> Cosigner Signature (if applicable): CC: ~ Signed [facility] Work Phone: 1(778) 243-312808-05-2025 Progress note Author Marcin Araujo [facility] Note Date/Time December 05, 2024 7:5 3am [facility] Medical Records Department [address] [facility] [place] [address] Progress Note - Cardiology 12/05/24 0745 MR#: [id number] Acct: [id number] Name: ERIBERTO RICO Rep #:[id number] : 1945 79 From: Marcin Araujo MD PCP: Dr. Marycarmen Rodriguez, DO Status:ADM IN Location: [place] [id number]- Subjective Subjective Patient seen and evaluated. Doing much better this morning. Objective Data Vital Signs: Vital Signs Temp Pulse Resp BP Pulse Ox O2 Del Method O2 Flow Rate 97.9 F 63 16 101/68 100 CPAP 2 12/05/24 03:25 12/05/24 03:25 12/05/24 03:25 12/05/24 03:25 12/05/24 03:25 12/05/24 03:25 12/04/24 08:07 FiO2 21 12/04/24 22:55 Oxygen Flow Rate (L/min) 2 Oxygen Delivery Method CPAP Weight: 224 lb 6.889 oz Body Mass Index (BMI) 33.1 Intake & Output: Intake and Output for Last 24 Hours 12/03/24 12/04/24 12/05/24 23:59 23:59 23:59 Intake Total 640.00 / 640.00 Output Total 2090 / 3290 4200 / 4800 1100 / 1100 Balance -2090 / -3050 -3560.00 / -4160.00 -1100 / -1100 Lab / Micro Data 12/04/24 05:02 12/05/24 05:34 Labs: Laboratory Results - last 24 hr 12/04/24 11:16: POC Glucose 207 H 12/04/24 16:44: POC Glucose 147 H 12/04/24 22:20: POC Glucose 151 H 12/05/24 05:34: Sodium 137, Potassium 3.2 L, Chloride 96 L, Carbon Dioxide 22.4,Anion Gap 19 H, BUN 47 H, Creatinine 2.57 H, Estim Creat Clear Calc 27.41 L, EstGFR (MDRD) Non-Af 25 L, BUN/Creatinine Ratio 18.2, Glucose 155 H, Calcium 9.1 12/05/24 06:40: POC Glucose 190 H Cardiology Labs/Tests 12/05/24 05:34: Sodium 137, Potassium 3.2 L, Chloride 96 L, Carbon Dioxide 22.4,Anion Gap 19 H, BUN 47 H, Creatinine 2.57 H, Est GFR (MDRD) Non-Af 25 L, BUN/Creatinine Ratio 18.2, Glucose 155 H, Calcium 9.1 Rhythm: EKG: ECHO: Stress Test: Cardiac Cath: PCI: CT Surgery: Holter monitor: EPS: PPM: CXR: Chest CT Scan: Physical Exam Const alert, oriented x3 and no apparent distress General Appearance: cooperative HEENT hearing grossly normal bilaterally Head and Scalp: atraumatic Eyes EOMs intact bilaterally Neck General: normal visual inspection Chest inspection of chest normal and palpation of chest normal Resp normal respiratory effort Auscultation: clear to auscultation bilaterally Cardio regular rate, regular rhythm, S1 normal heart sound and S2 normal heart sound Jugular Venous Distention: JVD GI normal to inspection, nondistended, normoactive bowel sounds Extremity normal capillary refill and no pedal edema Peripheral Pulses: Yes pulses 2+ throughout and femoral pulses present Skin no rashes or lesions noted Neuro oriented x3 and CN's II-XII intact bilaterally Psych Appearance: grossly normal and appropriate Assessment & Plan Assessment/Plan (1) History of acute inferior wall ND: PLAN: Patient underwent cardiac catheterization and the previously placed stent was noted to be patent. (2) Coronary artery vasospasm: PLAN: - Patient with recent acute thrombotic inferior STEMI, that was complicated with distal PLV dissection that was treated with 2 overlapping stents. - Patient came back with acute chest pain with EKG changes suggestive of anotherinferior STEMI, cardiac cath as listed above showed patent stents in the RCA in addition to patent stents in the PLV with mild disease in the PDA and mild in-stent restenosis in the RCA. The stents were all noted to be patent. I suspectthat the EKG changes were secondary to the akinetic inferior wall with Q waves and presenting with ST elevation. - Patient on aspirin, Brilinta, high potency statins, metoprolol will continue all the above including his isosorbide. Will also add Ranexa 500 mg twice a day We will like to ambulate him around today and see how he does by the afternoon. (3) CHF (congestive heart failure): QUALIFIERS: Heart failure type: diastolic Heart failure chronicity: acute on chronic Qualified Code(s): I50.33 - Acute on chronic diastolic (congestive) heart failure PLAN: - Patient with recent echo showed EF of 45 to 50% with wall motion normalities secondary to recent acute inferolateral STEMI. - LVEDP done yesterday showed LVEDP of 23 mmHg - patient was discharged off diuresis given CKD. - Will restart but with Lasix 40 once daily, will add Jardiance 10 mg p.o. dailygiven underlying diabetes and for kidney protection. - We recommend nephrology consultation. This can also be done as an outpatient. (4) Dyslipidemia: PLAN: - On statins, will continue. (5) Nonsustained monomorphic ventricular tachycardia: PLAN: Nonsustained ventricular tachycardia. His potassium was noted to be 3.1. This morning it is 3.2. Patient needs aggressive potassium replacement to keep potassium over 4. Would prefer at this level before the patient is discharged. Will also keep magnesiumover 2. 12/05/24 0753 <Electronically signed by Marcin Araujo MD> Cosigner Signature (if applicable): CC: ~ Signed [facility] Work Phone: [phone] 747-519408-04-2025 Progress note Author Abraham Ridley [facility] Note Date/Time December 04, 2024 2:2 1pm [facility] Medical Records Department [address] [place] [address] Progress Note - Hospitalist 12/04/24 1057 MR#: [id number] Acct: [id number] Name: ERIBERTO RICO Rep #:[id number] : 1945 79 From: Abraham inman DO PCP: Dr. Marycarmen Rodriguez, DO Status:ADM IN Location: [place] [address] Reason for Visit Chief Complaint: Chest Pain with STEMI alert. Subjective Subjective Saw patient at bedside this morning. Patient was mildly fatigued appearing but otherwise laying back comfortably in bed in no acute distress. Noted that he continues to have intermittent chest discomfort with mild shortness of breath, though it has been improved from previous days. No other new concerns at this time. Shortly after I saw the patient, nursing staff noted to me that patient was in wide-complex ventricular tachycardia and was nauseous with vomiting. I returnedto the bedside to evaluate the patient. He was actively vomiting into a vomitusbag and appeared pale. On telemetry, he was noted to have a run of approximately 30 beats of V. tach. Spontaneously resolved and EKG showed normalsinus rhythm with heart rate around 90. Notably EKG continued to show mild ST elevations in inferior leads but was stable from previous, so no concern for active STEMI. Dr. Araujo came to the bedside to evaluate the patient and recommended repleting potassium as the potassium level was 3.1 this morning, with continued close monitoring. Objective Data Objective Data Vital Signs: Vital Signs Temp Pulse Resp BP Pulse Ox O2 Del Method O2 Flow Rate 97.9 F 84 20 H 143/82 H 98 Room Air 2 12/04/24 08:30 12/04/24 09:43 12/04/24 09:43 12/04/24 09:43 12/04/24 09:43 12/04/24 09:43 12/04/24 08:07 Oxygen Flow Rate (L/min) 2 Oxygen Delivery Method Room Air Weight: 106.5 kg Body Mass Index (BMI) 34.7 Intake & Output: Intake and Output for Last 24 Hours 12/02/24 12/03/24 12/04/24 23:59 23:59 23:59 Intake Total 240 / 240 Output Total 2090 / 3290 2300 / 2300 Balance -2090 / -3050 -0 / -2059 Lab / Micro Data 12/04/24 05:02 12/04/24 05:02 Labs: Laboratory Results - last 24 hr 12/03/24 12:10: POC Glucose 226 H 12/03/24 16:45: POC Glucose 156 H 12/03/24 21:12: POC Glucose 153 H 12/04/24 05:02: WBC 9.7, RBC 3.59 L, Hgb 10.5 L, Hct 31.5 L, MCV 87.7, MCH 29.2,MCHC 33.3, RDW Std Deviation 43.8, RDW Coeff of Adrian 13.7, Plt Count 126 L, MPV 13.7 H, Immature Gran % (Auto) 0.600, Neut % (Auto) 73.9 H, Lymph % (Auto) 11.1 L, Curry % (Auto) 11.9 H, Eos % (Auto) 2.2, Baso % (Auto) 0.3, Absolute Neuts (auto) 7.1, Absolute Lymphs (auto) 1.07, Nucleated RBC % 0, Sodium 137, Potassium 3.1 L, Chloride 96 L, Carbon Dioxide 21.4, Anion Gap 19 H, BUN 49 H, Creatinine 2.53 H, Estim Creat Clear Calc 28.47 L, Est GFR (MDRD) Non-Af 25 L, BUN/Creatinine Ratio 19.4, Glucose 140 H, Calcium 9.2 12/04/24 06:01: POC Glucose 147 H Physical Exam Const alert, oriented x3 and no apparent distress Constitutional Narrative: Elderly male, class II obesity, mildly fatigued appearing but otherwise laying back comfortably in bed, conversing normally, in [...] but otherwise no wheezing or crackles noted. Stable. Cardio regular rate, regular rhythm, no murmurs and peripheral pulses 2+ throughout GI normal to inspection, nondistended, normoactive bowel sounds, soft to palpation,non-tender and non-distended Back/Spine normal ROM Extremity normal to inspection, full ROM and no pedal edema Skin no rashes or lesions noted Psych mental status grossly normal Assessment & Plan Assessment/Plan (1) STEMI (ST elevation myocardial infarction): PLAN: Plan Patient is a 79-year-old male who presented [facility] ED on 12/02/2024 as a STEMI alert. 1. Recent history of acute inferior wall ND with persistent EKG changes; episode of ventricular tachycardia; history of CAD with stenting, chronic HFrEF,hypertension, hyperlipidemia ? Cardiology following. Patient with complex recent medical history. In short,had stent placed to proximal RCA on 11/27. Presented with STEMI on 11/30 and emergent cath showed subacute stent thrombosis at the proximal RCA s/p balloon angioplasty, along with thrombus embolization to the right posterior lateral ventricular branch s/p 2 new drug-eluting stents. Plavix was discontinued and Brilinta was started along with baby aspirin. Discharged midday on 12/02 but presented again as a STEMI alert on the evening of 12/02. Per cardiology, suspecthis mild chronic ST elevations are secondary to recent inferior wall infarction. Low likelihood of coronary vasospasm. Patient did have episode of ventricular tachycardia of about 30 beats on morning of 12/04. Potassium low so is being repleted aggressively as below. Per cardiology, will hold off on antiarrhythmictherapy for now. Continue Brilinta, aspirin, statin, metoprolol, nitrate and Ranexa. Okay to restart home Lasix on 12/04 and will start Jardiance as well per cardiology. Continue cardiac monitoring. 2. BEVERLY on CKD stage IIIb, improving ? Creatinine 2.90 on admit. Baseline is around 1.9. Creatinine peaked at 3.16 on 12/01 and then began downtrending, so patient was discharged on 12/02 with plan to hold Lasix and follow-up outpatient BMP. Creatinine is steadily downtrending, most recent creatinine 2.53 on 12/04. Resuming home Lasix and starting Jardiance on 12/04 as above. Continue to monitor daily BMP and urine output. No need for inpatient nephrology consult currently but cardiology recommending outpatient nephrology follow-up shortly after discharge. Chronic medical conditions: ? Class II obesity: BMI 35 on admit. Complicates hospital course and care. ? Type 2 diabetes mellitus: A1c 7.0% on 11/30. Hold home metformin and glimepiride. Treating with sliding-scale insulin with meals while inpatient, adjust as needed. ? GERD: Continue home PPI. ? Anxiety/depression/insomnia: Continue home fluoxetine and mirtazapine. ? Chronic pain syndrome: Continue home hydrocodone?acetaminophen 3 times daily as needed. DVT prophylaxis: Heparin subcu CODE STATUS: Full code, verified Expected disposition: Home, TBD Total clinical time spent by myself addressing the patient's medical issues, reviewing all the data, and collaborating with patient's care team: 35 minutes. Charges/Coding Visit Charges Inpatient E&M: 66962 Subs Hosp L2 12/04/24 1421 <Electronically signed by Abraham Ridley DO> Cosigner Signature (if applicable): CC: ~ Signed [facility] Work Phone: [phone]) 480-537108-04-2025 Progress note Author Marcin Araujo [facility] Note Date/Time December 04, 2024 8:5 2am [facility] Medical Records Department [address] [place] [address] Progress Note - Cardiology 12/04/24 0725 MR#: [id number] Acct: [id number] Name: ERIBERTO RICO Rep #:[id number] : 1945 79 From: Marcin Araujo MD PCP: Dr. Marycarmen Rodriguez, DO Status:ADM IN Location: [place] [address] Subjective Subjective Patient seen and evaluated. Sleeping. No events overnight. Objective Data Vital Signs: Vital Signs Temp Pulse Resp BP Pulse Ox O2 Del Method O2 Flow Rate 98.8 F 65 16 125/79 H 93 Room Air 2 12/04/24 03:27 12/04/24 03:33 12/04/24 03:33 12/04/24 03:27 12/04/24 03:33 12/04/24 03:35 12/03/24 07:07 Oxygen Flow Rate (L/min) 2 Oxygen Delivery Method Room Air Weight: 234 lb 12.677 oz Body Mass Index (BMI) 34.7 Intake & Output: Intake and Output for Last 24 Hours 12/02/24 12/03/24 12/04/24 23:59 23:59 23:59 Intake Total 240 / 240 Output Total 2090 / 3290 2300 / 2300 Balance -2090 / -3050 -0 / -2060 Lab / Micro Data 12/04/24 05:02 12/04/24 05:02 Labs: Laboratory Results - last 24 hr 12/03/24 07:20: Urine Color Yellow, Urine Clarity Clear, Urine pH 6.0, Ur Specific [place] 1.015, Urine Protein 15 H, Urine Glucose (UA) Normal, Urine Ketones Negative, Urine Occult Blood 10 H, Urine Nitrite Negative, Urine Bilirubin Negative, Urine Urobilinogen Normal, Ur Leukocyte Esterase Negative, Urine RBC 0 SEEN, Urine WBC 0 SEEN, Ur Squamous Epith Cells 0 SEEN, Urine Bacteria 0 SEEN, Urine Mucus 0 SEEN 12/03/24 07:36: WBC 9.1, RBC 3.52 L, Hgb 10.3 L, Hct 31.8 L, MCV 90.3, MCH 29.3,MCHC 32.4, RDW Std Deviation 46.0 H, RDW Coeff of Adrian 14.2, Plt Count 104 L, MPV12.4 H, Immature Gran % (Auto) 0.600, Neut % (Auto) 75.5 H, Lymph % (Auto) 10.5 L, Curry % (Auto) 11.4 H, Eos % (Auto) 1.8, Baso % (Auto) 0.2, Absolute Neuts (auto) 6.9, Absolute Lymphs (auto) 0.95, Nucleated RBC % 0, Sodium 134, Potassium 3.7, Chloride 100, Carbon Dioxide 18.7 L, Anion Gap 15, BUN 53 H, Creatinine 2.58 H, Estim Creat Clear Calc 28.22 L, Est GFR (MDRD) Non-Af 25 L, BUN/Creatinine Ratio 20.6 H, Glucose 154 H, Calcium 8.9, Phosphorus 3.4, Magnesium 2.5 H, Total Bilirubin 1.27, AST 134 H, ALT 47, Alkaline Phosphatase 94, Total Protein 6.3, Albumin 3.4, Globulin 2.8, Albumin/Globulin Ratio 1.2 12/03/24 12:10: POC Glucose 226 H 12/03/24 16:45: POC Glucose 156 H 12/03/24 21:12: POC Glucose 153 H 12/04/24 05:02: WBC 9.7, RBC 3.59 L, Hgb 10.5 L, Hct 31.5 L, MCV 87.7, MCH 29.2,MCHC 33.3, RDW Std Deviation 43.8, RDW Coeff of Adrian 13.7, Plt Count 126 L, MPV 13.7 H, Immature Gran % (Auto) 0.600, Neut % (Auto) 73.9 H, Lymph % (Auto) 11.1 L, Curry % (Auto) 11.9 H, Eos % (Auto) 2.2, Baso % (Auto) 0.3, Absolute Neuts (auto) 7.1, Absolute Lymphs (auto) 1.07, Nucleated RBC % 0, Sodium 137, Potassium 3.1 L, Chloride 96 L, Carbon Dioxide 21.4, Anion Gap 19 H, BUN 49 H, Creatinine 2.53 H, Estim Creat Clear Calc 28.47 L, Est GFR (MDRD) Non-Af 25 L, BUN/Creatinine Ratio 19.4, Glucose 140 H, Calcium 9.2 12/04/24 06:01: POC Glucose 147 H Cardiology Labs/Tests 12/03/24 07:20: Urine Color Yellow, Urine Clarity Clear, Urine pH 6.0, Ur Specific [place] 1.015, Urine Protein 15 H, Urine Glucose (UA) Normal, Urine Ketones Negative, Urine Occult Blood 10 H, Urine Nitrite Negative, Urine Bilirubin Negative, Urine Urobilinogen Normal, Ur Leukocyte Esterase Negative, Urine RBC 0 SEEN, Urine WBC 0 SEEN 12/03/24 07:36: WBC 9.1, RBC 3.52 L, Hgb 10.3 L, Hct 31.8 L, MCV 90.3, MCH 29.3,MCHC 32.4, Plt Count 104 L, MPV 12.4 H, Immature Gran % (Auto) 0.600, Neut % (Auto) 75.5 H, Lymph % (Auto) 10.5 L, Curry % (Auto) 11.4 H, Eos % (Auto) 1.8, Baso % (Auto) 0.2, Absolute Neuts (auto) 6.9, Nucleated RBC % 0, Sodium 134, Potassium 3.7, Chloride 100, Carbon Dioxide 18.7 L, Anion Gap 15, BUN 53 H, Creatinine 2.58 H, Est GFR (MDRD) Non-Af 25 L, BUN/Creatinine Ratio 20.6 H, Glucose 154 H, Calcium 8.9, Phosphorus 3.4, Magnesium 2.5 H, Total Bilirubin 1.27 12/04/24 05:02: WBC 9.7, RBC 3.59 L, Hgb 10.5 L, Hct 31.5 L, MCV 87.7, MCH 29.2,MCHC 33.3, Plt Count 126 L, MPV 13.7 H, Immature Gran % (Auto) 0.600, Neut % (Auto) 73.9 H, Lymph % (Auto) 11.1 L, Curry % (Auto) 11.9 H, Eos % (Auto) 2.2, Baso % (Auto) 0.3, Absolute Neuts (auto) 7.1, Nucleated RBC % 0, Sodium 137, Potassium 3.1 L, Chloride 96 L, Carbon Dioxide 21.4, Anion Gap 19 H, BUN 49 H, Creatinine 2.53 H, Est GFR (MDRD) Non-Af 25 L, BUN/Creatinine Ratio 19.4, [id number] H, Calcium 9.2 Rhythm: EKG: ECHO: Stress Test: Cardiac Cath: PCI: CT Surgery: Holter monitor: EPS: PPM: CXR: Chest CT Scan: Physical Exam Const alert, oriented x3 and no apparent distress General Appearance: cooperative HEENT hearing grossly normal bilaterally Head and Scalp: atraumatic Eyes EOMs intact bilaterally Neck General: normal visual inspection Chest inspection of chest normal and palpation of chest normal Resp normal respiratory effort Auscultation: clear to auscultation bilaterally Cardio regular rate, regular rhythm, S1 normal heart sound and S2 normal heart sound Jugular Venous Distention: JVD GI normal to inspection, nondistended, normoactive bowel sounds Extremity normal capillary refill and no pedal edema Peripheral Pulses: Yes pulses 2+ throughout and femoral pulses present Skin no rashes or lesions noted Neuro oriented x3 and CN's II-XII intact bilaterally Psych Appearance: grossly normal and appropriate Assessment & Plan Assessment/Plan (1) History of acute inferior wall ND: PLAN: Patient underwent cardiac catheterization and the previously placed stent was noted to be patent. (2) Coronary artery vasospasm: PLAN: - Patient with recent acute thrombotic inferior STEMI, that was complicated with distal PLV dissection that was treated with 2 overlapping stents. - Patient came back with acute chest pain with EKG changes suggestive of anotherinferior STEMI, cardiac cath as listed above showed patent stents in the RCA in addition to patent stents in the PLV with mild disease in the PDA and mild in-stent restenosis in the RCA. The stents were all noted to be patent. I suspectthat the EKG changes were secondary to the akinetic inferior wall with Q waves and presenting with ST elevation. - Patient on aspirin, Brilinta, high potency statins, metoprolol will continue all the above including his isosorbide. Will also add Ranexa 500 mg twice a day We will like to ambulate him around today and see how he does by the afternoon. (3) CHF (congestive heart failure): QUALIFIERS: Heart failure type: diastolic Heart failure chronicity: acute on chronic Qualified Code(s): I50.33 - Acute on chronic diastolic (congestive) heart failure PLAN: - Patient with recent echo showed EF of 45 to 50% with wall motion normalities secondary to recent acute inferolateral STEMI. - LVEDP done yesterday showed LVEDP of 23 mmHg - patient was discharged off diuresis given CKD. - Will restart but with Lasix 40 once daily, will add Jardiance 10 mg p.o. dailygiven underlying diabetes and for kidney protection. - We recommend nephrology consultation. This can also be done as an outpatient. (4) Dyslipidemia: PLAN: - On statins, will continue. 12/04/24 0829 <Electronically signed by Marcin Araujo MD> Cosigner Signature (if applicable): CC: ~ Signed [facility] Work Phone: [phone]) 472-554408-04-2025 Consult note Author Marcin Araujo [facility] Note Date/Time December 04, 2024 6:4 7am [facility] Medical Records Department [address] [place] [address] Consultation - Cardiology 12/03/24 1241 MR#: [id number] Acct: [id number] Name: ERIBERTO RICO Rep #:[id number] : 1945 79 From: Marcin Araujo MD PCP: Dr. Marycarmen Rodriguez, DO Status:ADM IN Location: [place] [address] Documented by User: Dr. Mickey Simpson MD 12/03/24 16:19 Assessment & Plan Assessment/Plan (1) History of acute inferior wall ND: (2) Coronary artery vasospasm: PLAN: - Patient with recent acute thrombotic inferior STEMI, that was complicated with distal PLV dissection that was treated with 2 overlapping stents. - Patient came back with acute chest pain with EKG changes suggestive of anotherinferior STEMI, cardiac cath as listed above showed patent stents in the RCA in addition to patent stents in the PLV with mild disease in the PDA and mild in-stent restenosis in the RCA. - Patient on aspirin, Brilinta, high potency statins, metoprolol will continue he is already on Imdur however his blood pressure is softer today will cut down Imdur from 60 twice daily to 30 mg p.o. daily. (3) CHF (congestive heart failure): QUALIFIERS: Heart failure chronicity: acute on chronic Heart failure type: diastolic Qualified Code(s): I50.33 - Acute on chronic diastolic (congestive) heart failure PLAN: - Patient with recent echo showed EF of 45 to 50% with wall motion normalities secondary to recent acute inferolateral STEMI. - LVEDP done yesterday showed LVEDP of 23 mmHg - patient was discharged off diuresis given CKD. - Will restart Lasix 40 twice daily, will add Jardiance 10 mg p.o. daily given underlying diabetes and for kidney protection. - We recommend nephrology consultation. (4) Dyslipidemia: PLAN: - On statins, will continue. HPI Consult Data Date of Consult: 12/03/24 HPI Narrative Reason for Consultation: STEMI HPI Narrative: ERIBERTO RICO, is a 79 M who presents active chest pain with ECg changes suggestive of STEMI. Patient recently had acute in-stent restenosis that led to acute inferior STEMI that was fixed on 11/30/2024, he initially had his RCA fixed for in-stent restenosis on 11/27/2024. He was discharged yesterday with aspirin Brilinta statins beta- jeffrey and rest of medical therapy he went to a wedding during which she had another episode of chest pain they called EMS and EKG showed some changes suggestive of another episode of STEMI after which the patient was brought into the [facility] urgent cardiac catheterization was performed via left radial artery that showed patent stents, elevated LVEDP. Patient today denies any active chest pain he feels more short of breath which is suggestive of CHF secondary to the underlying elevated filling pressure. Recent echo showed no regional wall motion normalities with drop in EF to 45- 50% with mild RV dilation could be secondary to RV infarct. Will restart diuresis given the patient acute kidney injury on top of CKD he was discharged off diuresis. Also was not on any JOSELO or ARB secondary to CKD [facility] Medical History Anemia Diabetes mellitus Chronic kidney [...] kidney disease, stage 3 Atherosclerotic heart disease [place] coronary artery w/angina pectoris Type 2 diabetes mellitus without complications Hyperlipidemia Obesity Home Medications ?Medication ?Instructions ?Recorded ?Last Taken ?Type aspirin 81 mg tablet,delayed 81 mg [facility] DAILY[facility]0800 [facility] 01/21/17 10/11/23 History release maintenance mirtazapine [...] Number of servings: 6 Physical Exam Narrative General: Alert, oriented x3, central obesity, in mild respiratory distress HEENT: Normocephalic, normal vision, normal EOM. Neck: Normal JVD, no carotid Bruit, no thyromegaly , no lymphadenopathy. Chest wall: Normal shape, non tender. Cardiac: Normal rate and rhythm, no rubs, gallops or murmurs noted. Respiratory: Fine bibasilar rales. Abdomen: Nondistended, nontender, no ascites or masses or organomegaly noted, normal bowel sounds. Extremities: Normal pulsations, no edema, normal strength and muscle mass. Neurological: Gross CN examination is normal, Normal power in all extremities. Objective Data Vital Signs: Vital Signs Temp Pulse Resp BP Pulse Ox O2 Del Method O2 Flow Rate 97.8 F 73 22 H 111/73 96 Room Air 2 12/03/24 12:16 12/03/24 12:16 12/03/24 12:16 12/03/24 12:16 12/03/24 12:16 12/03/24 12:16 12/03/24 07:07 Oxygen Flow Rate (L/min) 2 Oxygen Delivery Method Room Air Weight: 239 lb 13.807 oz Body Mass Index (BMI) 35.4 Intake & Output: Intake and Output for Last 24 Hours 12/01/24 12/02/24 12/03/24 23:59 23:59 23:59 Output Total 750 / 750 Balance -750 / -750 Lab / Micro Data 12/04/24 05:02 12/03/24 07:36 Labs: Laboratory Results - last 24 hr 12/02/24 20:19: WBC 12.7 H, RBC 3.81 L, Hgb 11.1 L, Hct 34.1 L, MCV 89.5, MCH 29.1, MCHC 32.6, RDW Std Deviation 45.8 H, RDW Coeff of Adrian 14.1, Plt Count 134 L, MPV 12.8 H, Immature Gran % (Auto) 0.600, Neut % (Auto) 76.7 H, Lymph % (Auto) 8.9 L, Curry % (Auto) 12.7 H, Eos % (Auto) 0.8, Baso % (Auto) 0.3, Absolute Neuts (auto) 9.8 H, Absolute Lymphs (auto) 1.13, Nucleated RBC % 0, Differential Comment SCANNED, Platelet Estimate SLT DEC, PT 14.6, INR 1.1, APTT 31.6, Sodium 131 L, Potassium 4.6, Chloride 96 L, Carbon Dioxide 20.5 L, Anion Gap 14, BUN 52 H, Creatinine 2.90 H, Estim Creat Clear Calc 25.31 L, Est GFR (MDRD) Non-Af 21 L, BUN/Creatinine Ratio 18.0, Glucose 175 H, Calcium 9.1, Troponin T High Sens > 38475 H* D 12/02/24 20:29: Activated Clotting Time 245 H 12/02/24 22:43: Troponin T Hi Sens 2 Hr > 01988 H* 12/03/24 01:17: Troponin T Hi Sens 4Hr > 47465 H* 12/03/24 06:14: POC Glucose 140 H 12/03/24 07:20: Urine Color Yellow, Urine Clarity Clear, Urine pH 6.0, Ur Specific [place] 1.015, Urine Protein 15 H, Urine Glucose (UA) Normal, Urine Ketones Negative, Urine Occult Blood 10 H, Urine Nitrite Negative, Urine Bilirubin Negative, Urine Urobilinogen Normal, Ur Leukocyte Esterase Negative, Urine RBC 0 SEEN, Urine WBC 0 SEEN, Ur Squamous Epith Cells 0 SEEN, Urine Bacteria 0 SEEN, Urine Mucus 0 SEEN 12/03/24 07:36: WBC 9.1, RBC 3.52 L, Hgb 10.3 L, Hct 31.8 L, MCV 90.3, MCH 29.3,MCHC 32.4, RDW Std Deviation 46.0 H, RDW Coeff of Adrian 14.2, Plt Count 104 L, MPV12.4 H, Immature Gran % (Auto) 0.600, Neut % (Auto) 75.5 H, Lymph % (Auto) 10.5 L, Curry % (Auto) 11.4 H, Eos % (Auto) 1.8, Baso % (Auto) 0.2, Absolute Neuts (auto) 6.9, Absolute Lymphs (auto) 0.95, Nucleated RBC % 0, Sodium 134, Potassium 3.7, Chloride 100, Carbon Dioxide 18.7 L, Anion Gap 15, BUN 53 H, Creatinine 2.58 H, Estim Creat Clear Calc 28.22 L, Est GFR (MDRD) Non-Af 25 L, BUN/Creatinine Ratio 20.6 H, Glucose 154 H, Calcium 8.9, Phosphorus 3.4, Magnesium 2.5 H, Total Bilirubin 1.27, AST 134 H, ALT 47, Alkaline Phosphatase 94, Total Protein 6.3, Albumin 3.4, Globulin 2.8, Albumin/Globulin Ratio 1.2 Cardiology Labs/Tests 12/02/24 20:19: WBC 12.7 H, RBC 3.81 L, Hgb 11.1 L, Hct 34.1 L, MCV 89.5, MCH 29.1, MCHC 32.6, Plt Count 134 L, MPV 12.8 H, Immature Gran % (Auto) 0.600, Neut% (Auto) 76.7 H, Lymph % (Auto) 8.9 L, Curry % (Auto) 12.7 H, Eos % (Auto) 0.8, Baso % (Auto) 0.3, Absolute Neuts (auto) 9.8 H, Nucleated RBC % 0, PT 14.6, INR 1.1, APTT 31.6, Sodium 131 L, Potassium 4.6, Chloride 96 L, Carbon Dioxide 20.5 L, Anion Gap 14, BUN 52 H, Creatinine 2.90 H, Est GFR (MDRD) Non-Af 21 L, BUN/Creatinine Ratio 18.0, Glucose 175 H, Calcium 9.1 12/03/24 07:20: Urine Color Yellow, Urine Clarity Clear, Urine pH 6.0, Ur Specific [place] 1.015, Urine Protein 15 H, Urine Glucose (UA) Normal, Urine Ketones Negative, Urine Occult Blood 10 H, Urine Nitrite Negative, Urine Bilirubin Negative, Urine Urobilinogen Normal, Ur Leukocyte Esterase Negative, Urine RBC 0 SEEN, Urine WBC 0 SEEN 12/03/24 07:36: WBC 9.1, RBC 3.52 L, Hgb 10.3 L, Hct 31.8 L, MCV 90.3, MCH 29.3,MCHC 32.4, Plt Count 104 L, MPV 12.4 H, Immature Gran % (Auto) 0.600, Neut % (Auto) 75.5 H, Lymph % (Auto) 10.5 L, Curry % (Auto) 11.4 H, Eos % (Auto) 1.8, Baso % (Auto) 0.2, Absolute Neuts (auto) 6.9, Nucleated RBC % 0, Sodium 134, Potassium 3.7, Chloride 100, Carbon Dioxide 18.7 L, Anion Gap 15, BUN 53 H, Creatinine 2.58 H, Est GFR (MDRD) Non-Af 25 L, BUN/Creatinine Ratio 20.6 H, Glucose 154 H, Calcium 8.9, Phosphorus 3.4, Magnesium 2.5 H, Total Bilirubin 1.27 Rhythm: EKG: ECHO: Stress Test: Cardiac Cath: PCI: CT Surgery: Holter monitor: EPS: PPM: CXR: Chest CT Scan: Documented by User: Dr. Marcin Araujo MD 12/04/24 06:47 Assessment & Plan Assessment/Plan (1) History of acute inferior wall ND: (2) Coronary artery vasospasm: (3) CHF (congestive heart failure): QUALIFIERS: Heart failure chronicity: acute on chronic Heart failure type: diastolic Qualified Code(s): I50.33 - Acute on chronic diastolic (congestive) heart failure (4) Dyslipidemia: HPI Consult Data Date of Consult: 12/04/24 [facility] Medical History Anemia Diabetes mellitus Chronic [...] kidney disease, stage 3 Atherosclerotic heart disease [place] coronary artery w/angina pectoris Type 2 diabetes [...] coffee and tea Number of servings: 6 Risk Stratification Risk Stratification Applicable: No Lab / Micro Data 12/04/24 05:02 12/03/24 07:36 12/04/24 0647 <Electronically signed by Marcin Araujo MD> Cosigner Signature (if applicable): CC: Dr. Mickey Simpson MD; Dr. Marycarmen Rodriguez DO~ Signed [facility] Work Phone: [phone]) 229-770408-03-2025 Progress note Author Ramonita Herron [facility] Note Date/Time December 03, 2024 3:5 7pm [facility] Medical Records Department [address] [place] [address] Progress Note - Hospitalist 12/03/24 1548 MR#: [id number] Acct: [id number] Name: ERIBERTO RICO Rep #:[id number] : 1945 79 From: Ramonita Herron MD PCP: Dr. Marycarmen Rodriguez, DO Status:ADM IN Location: [place] [address] Reason for Visit Chief Complaint: Chest Pain with STEMI alert. Subjective Subjective Patient reports he will still intermittently get some chest discomfort though not quite like it had been, has been having shortness of breath, notes that thishas been worsening over the past couple of months, does not think he is retaining fluid but does note he has been off of his Lasix Objective Data Objective Data Vital Signs: Vital Signs Temp Pulse Resp BP Pulse Ox O2 Del Method O2 Flow Rate 97.8 F 73 22 H 111/73 96 Room Air 2 12/03/24 12:16 12/03/24 12:16 12/03/24 12:16 12/03/24 12:16 12/03/24 12:16 12/03/24 12:16 12/03/24 07:07 Oxygen Flow Rate (L/min) 2 Oxygen Delivery Method Room Air Weight: 108.8 kg Body Mass Index (BMI) 35.4 Intake & Output: Intake and Output for Last 24 Hours 12/01/24 12/02/24 12/03/24 23:59 23:59 23:59 Output Total 1000 / 1000 Balance -1000 / -1000 Lab / Micro Data 12/03/24 07:36 12/03/24 07:36 Labs: Laboratory Results - last 24 hr 12/02/24 20:19: WBC 12.7 H, RBC 3.81 L, Hgb 11.1 L, Hct 34.1 L, MCV 89.5, MCH 29.1, MCHC 32.6, RDW Std Deviation 45.8 H, RDW Coeff of Adrian 14.1, Plt Count 134 L, MPV 12.8 H, Immature Gran % (Auto) 0.600, Neut % (Auto) 76.7 H, Lymph % (Auto) 8.9 L, Curry % (Auto) 12.7 H, Eos % (Auto) 0.8, Baso % (Auto) 0.3, Absolute Neuts (auto) 9.8 H, Absolute Lymphs (auto) 1.13, Nucleated RBC % 0, Differential Comment SCANNED, Platelet Estimate SLT DEC, PT 14.6, INR 1.1, APTT 31.6, Sodium 131 L, Potassium 4.6, Chloride 96 L, Carbon Dioxide 20.5 L, Anion Gap 14, BUN 52 H, Creatinine 2.90 H, Estim Creat Clear Calc 25.31 L, Est GFR (MDRD) Non-Af 21 L, BUN/Creatinine Ratio 18.0, Glucose 175 H, Calcium 9.1, Troponin T High Sens > 85519 H* D 12/02/24 20:29: Activated Clotting Time 245 H 12/02/24 22:43: Troponin T Hi Sens 2 Hr > 25681 H* 12/03/24 01:17: Troponin T Hi Sens 4Hr > 64971 H* 12/03/24 06:14: POC Glucose 140 H 12/03/24 07:20: Urine Color Yellow, Urine Clarity Clear, Urine pH 6.0, Ur Specific [place] 1.015, Urine Protein 15 H, Urine Glucose (UA) Normal, Urine Ketones Negative, Urine Occult Blood 10 H, Urine Nitrite Negative, Urine Bilirubin Negative, Urine Urobilinogen Normal, Ur Leukocyte Esterase Negative, Urine RBC 0 SEEN, Urine WBC 0 SEEN, Ur Squamous Epith Cells 0 SEEN, Urine Bacteria 0 SEEN, Urine Mucus 0 SEEN 12/03/24 07:36: WBC 9.1, RBC 3.52 L, Hgb 10.3 L, Hct 31.8 L, MCV 90.3, MCH 29.3,MCHC 32.4, RDW Std Deviation 46.0 H, RDW Coeff of Adrian 14.2, Plt Count 104 L, MPV12.4 H, Immature Gran % (Auto) 0.600, Neut % (Auto) 75.5 H, Lymph % (Auto) 10.5 L, Curry % (Auto) 11.4 H, Eos % (Auto) 1.8, Baso % (Auto) 0.2, Absolute Neuts (auto) 6.9, Absolute Lymphs (auto) 0.95, Nucleated RBC % 0, Sodium 134, Potassium 3.7, Chloride 100, Carbon Dioxide 18.7 L, Anion Gap 15, BUN 53 H, Creatinine 2.58 H, Estim Creat Clear Calc 28.22 L, Est GFR (MDRD) Non-Af 25 L, BUN/Creatinine Ratio 20.6 H, Glucose 154 H, Calcium 8.9, Phosphorus 3.4, Magnesium 2.5 H, Total Bilirubin 1.27, AST 134 H, ALT 47, Alkaline Phosphatase 94, Total Protein 6.3, Albumin 3.4, Globulin 2.8, Albumin/Globulin Ratio 1.2 12/03/24 12:10: POC Glucose 226 H Physical Exam Narrative General: Alert, oriented, no apparent distress HEENT: Atraumatic, normocephalic Eyes: Anicteric, normal conjunctiva, extraocular movements grossly intact Neck: Supple Respiratory: Does appear to have some increased respiratory effort however lungssound clear to auscultation Cardiovascular: Regular rate and rhythm GI: nontender, Extremities: Trace lower extremity edema Musculoskeletal: Moving all extremities Neuro: No overt focal neurological deficits Skin: No rashes appreciated Psych: Cooperative Assessment & Plan Assessment/Plan (1) Coronary artery disease: PLAN: Plan # Recent STEMI -Was emergently taken to the [facility]/30 due to a STEMI. Emergent cath showedsubacute stent thrombosis in the proximal RCA with percutaneous revascularization and PCI with KENDALL to proximal RCA. Thrombus embolized to rightposterior lateral ventricle branch which was treated with balloon angioplasty and placement of 2 drug-eluting stents with DEXTER III flow restored. -Patient was transition from Plavix to Brilinta with aspirin and statin, metoprolol and isosorbide mononitrate continued -Echo during that admission showed mild left ventricular hypertrophy with mildlyreduced left ventricular ejection fraction of 50% with basal and mid lateral wall akinesis and basal inferoseptal hypokinesis as well as basal inferior hypokinesis and grade 1 diastolic dysfunction, mild RV dilation with preserved function, no valvular abnormalities and a small epicardial fat pad - Patient ultimately was discharged 12/02 due to his insistence as he was feeling better and wanted to go to his granddaughter's wedding. While at his granddaughter's wedding he developed the symptoms again, patient was another STEMI alert later that evening on 12/02 and went emergently to the [facility] however no intervention was needed or warranted it was felt that this was an area vasospasm - Patient on telemetry in PCU - Appreciate cardiology management recommendations - Earlier patient's blood pressure was only 90 systolic so his metoprolol and isosorbide mononitrate are slightly timewise to try to avoid hypotension - Continue to monitor and provide symptomatic care # Recurrent rectal bleeding - Patient intermittently has some bleeding when he wipes - This has been off and on and was also noted last hospitalization - No significant blood or blood mixed with stool or toilet bowl per patient, hemoglobin similar to what it was 12/01 when it was 10.6 - Continue to monitor # CKD stage IV - Last admission patient had an BEVERLY, patient's creatinine improved slightly but then this a.m. was improved to 2.58 - Did receive contrast for cath so will need to monitor this closely #Type 2 diabetes mellitus -Glucose checks and sliding scale insulin #Hx of CAD -w/ previous stenting as above -Continue Brilinta, metoprolol, Imdur, amlodipine was added per cardiology last admission - Losartan was discontinued last admission given patient's kidney function #GERD -Continue PPI #Depression/anxiety -Continue home medications #DVT ppx: Heparin subcu Ramonita Herron MD Charges/Coding Visit Charges Inpatient E&M: 06593 Subs Hosp L2 12/03/24 1273 <Electronically signed by Ramonita Herron MD> Cosigner Signature (if applicable): CC: ~ Signed [facility] Work Phone: [phone] 800-841208-03-2025 History and physical note Author Alex Resendez [facility] Note Date/Time December 03, 2024 5:5 6am [facility] Medical Records Department [address] [place] [address] H&P Exam - Hospitalist 12/02/242049 MR#: [id number] Acct: [id number] Name: ERIBERTO RICO Rep #:[id number] : 1945 79 From: Alex Colon DO PCP: Dr. Marycarmen Rodriguez, Status:ADM IN Location: [facility] [id number]- [id number] HPI - General General Date of Admission: 12/02/24 Date of Service: 12/02/24 Chief Complaint: Chest Pain with STEMI alert. HPI Narrative ERIBERTO RICO, is a 79 M with a past medical history of essential hypertension; on amlodipine, losartan, metoprolol, spironolactone and furosemide, hyperlipidemia; on atorvastatin, obesity (class II); with a BMI of 36 this admission, MATTHEW; on CPAP, DM-2 of unknown control on glimepiride, former tobacco abuse x ~30 years; with subsequent COPD, history of TIA, history of CHF, historyof syncope, CKD; stage IV, history of prostatectomy, history of COVID-19, CAD; s/p RCA stents x 2 (2005) and then had 3 in-stent stenosis in the proximal RCA requiring coronary angioplasty (2022) stenting followed with recurrent chest pain in October and follow-up stress test on November 10, 2024 which showed mild sriram-infarct ischemia with subsequent LHC on November 27 that showed severe in-stent restenosis of heavily calcified proximal RCA; with percutaneous intervention performed with shockwave intracoronary lithotripsy and drug-eluting stent followed by very recent admission here from November 30, 2024 for treatment of a acute inferior STEMI alert with subsequent RCA with thrombus embolization of theRight posterior lateral ventricular branch that was treated with balloon angioplasty and placement of 2 new drug-eluting stents as well with the patient manage in the ICU thereafter and then discharged home to attend a wedding at 2:00 PM who re- presents to [facility] ER after he 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 Mr. Rico reports his symptoms began ~40 minutes prior to presentation with the abrupt-onset of severe left-sided chest pain with dyspnea, diaphoresis and nausea. He describes the chest pain as a combination of heaviness and pressure that was moderate in severity (~5/10) and is now mild at ~2-3/10 was made betterby nothing and worse by nothing. EMS was then activated and he received 4 baby aspirin and ticagrelor prehospital after he was noted to have signs of acute inferior STEMI on EKG with IV heparin begun in ER. Patient admits his symptoms are very similar to his previous ND's. There was no report of associated fever,chills, visual changes, discharge from eyes, runny nose, sore throat, ear pain, abdominal pain, vomiting, diarrhea, constipation, dysuria, hematuria, arthralgias, myalgias, headache or rash. In the ER he was noted to have mild Leukocytosis of 12.7 K present on admission (up from 11.2 K at 7:19 AM earlier today) with chronic moderate Thrombocytopenia of 134K present on admission with mild Hyponatremia of 131 mmol/L present on admission (down from 133 mmol/L at 7:19 AM earlier today) with notably stable vital signs and he was then admitted to the ICU for ongoing care for stay that is expected to extend beyond 2 midnights. [facility] Medical History Anemia Diabetes mellitus Chronic [...] kidney disease, stage 3 Atherosclerotic heart disease [place] coronary artery w/angina pectoris Type 2 diabetes [...] tea Number of servings: 6 ROS ROS Narrative Review of Systems: Constitutional: Patient denies fever or chills. Eyes: Patient denies changes in vision or discharge from eyes. ENT: Patient denies runny nose, sore throat or ear pain. Resp: Patient admits to shortness of breath but he denies cough. CV: Patient admits to chest pain that was Left-sided with pressure and heaviness, diaphoresis and nausea as per HPI. GI: Patient admits to nausea but he denies vomiting, diarrhea, constipation or abdominal pain. : Patient denies dysuria or hematuria. MSK: Patient denies arthralgias or myalgias. Skin: Patient denies rash, abscess, wounds or jaundice. Psych: Patient denies symptoms of uncontrolled depression or anxiety. Neuro: Patient denies headache, paresthesias or focal neurologic deficits. Allergy: Patient denies lip swelling, tongue swelling or urticaria. Hematology: Patient denies easy bleeding or easy bruisability. Endocrinology: Patient denies polyuria, polydipsia, polyphagia or heat/cold intolerance. 14 point ROS otherwise negative except for positives noted above in HPI. Vital Signs Vital Signs Vital Signs: 12/02/24 20:16 12/02/24 20:19 12/02/24 20:21 Temperature 98.8 F Temperature Source Oral Pulse Rate 83 Respiratory Rate 19 H Respiratory Effort Blood Pressure 129/78 H 129/78 H Blood Pressure Mean 95 Pulse Ox 96 Oxygen Delivery Method Nasal Cannula Nasal Cannula Oxygen Flow Rate (L/min) 3 3 12/02/24 20:24 12/02/24 20:33 Temperature Temperature Source Pulse Rate 80 Respiratory Rate 18 Respiratory Effort Short of Breath Blood Pressure 106/69 Blood Pressure Mean 81 Pulse Ox 95 Oxygen Delivery Method Nasal Cannula Oxygen Flow Rate (L/min) Weight Weight: 243 lb 9.6 oz Body Mass Index (BMI) 35.9 Physical Exam Const alert and oriented x3 Constitutional Narrative: Obese patient who appears slightly pale with moist skin. General Appearance: cooperative HEENT normocephalic, head/scalp atraumatic, hearing grossly normal bilaterally and moist oral mucous membranes Eyes PERRL, EOMs intact bilaterally and conjunctivae normal Neck no lymphadenopathy, supple and no JVD Resp normal respiratory effort, no retractions, no use of accessory muscles and clearto auscultation bilaterally Cardio regular rate and regular rhythm GI normal to inspection, nondistended, normoactive bowel sounds, soft to palpation,non-tender and non-distended GI Narrative: Obese. Extremity Extremity Narrative: Patient has bruising of his Right upper extremity and Right groin. Skin Skin Narrative: Patient has bruising of his Right upper extremity and Right groin. No rash or wound noted. Neuro oriented x3, CN's II-XII intact bilaterally, moves all extremities and no focal motor deficits Sensorium / Orientation: awake, alert, oriented to person, oriented to place andoriented to time Speech: speech normal Psych affect normal Results Medical Records Data Attestation: I reviewed the patient's medical records Lab / Micro Data Attestation: I reviewed the patient's lab results. 12/02/24 20:19 12/02/24 20:19 Labs: Laboratory Results - last 24 hr 12/02/24 20:19: WBC 12.7 H, RBC 3.81 L, Hgb 11.1 L, Hct 34.1 L, MCV 89.5, MCH 29.1, MCHC 32.6, RDW Std Deviation 45.8 H, RDW Coeff of Adrian 14.1, Plt Count 134 L, MPV 12.8 H, Immature Gran % (Auto) 0.600, Neut % (Auto) 76.7 H, Lymph % (Auto) 8.9 L, Curry % (Auto) 12.7 H, Eos % (Auto) 0.8, Baso % (Auto) 0.3, Absolute Neuts (auto) 9.8 H, Absolute Lymphs (auto) 1.13, Nucleated RBC % 0, PT 14.6, INR 1.1, APTT 31.6, Sodium 131 L, Potassium 4.6, Chloride 96 L, Carbon Dioxide 20.5 L, Anion Gap 14, BUN 52 H, Creatinine 2.90 H, Estim Creat Clear Calc 25.31 L, Est GFR (MDRD) Non-Af 21 L, BUN/Creatinine Ratio 18.0, Glucose 175H, Calcium 9.1 Assessment & Plan Assessment/Plan (1) Coronary artery vasospasm: (2) History of acute inferior wall ND: (3) Leukocytosis: QUALIFIERS: Leukocytosis type: unspecified Qualified Code(s): D72.829 - Elevated white blood cell count, unspecified (4) Hyponatremia: (5) CKD (chronic kidney disease) stage 4, GFR 15-29 ml/min: (6) Obesity (BMI 30-39.9): PLAN: Plan 1. Acute Vasospasm mimicking Inferior Wall STEMI; recurrent in the setting of known CAD; s/p RCA stents x 2 (2005) and then had 3 in-stent stenosis in the proximal RCA requiring coronary angioplasty (2022) stenting followed with recurrent chest pain in October and follow-up stress test on November 10, 2024 which showed mild sriram-infarct ischemia with subsequent LHC on November 27 that showed severe in-stent restenosis of heavily calcified proximal RCA; with percutaneous intervention performed with shockwave intracoronary lithotripsy and drug-elutingstent followed by very recent admission here from November 30, 2024 for treatment ofa acute inferior STEMI alert with subsequent RCA with thrombus embolization of the Right posterior lateral ventricular branch that was treated with balloon angioplasty and placement of 2 new drug- eluting stents as well with the patient manage in the ICU thereafter and then discharged home to attend a wedding at 2:00 PM who re-presents to [facility] ER after he developed 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 Patient taken for emergent LHC by [facility] with the patient suspected to have acute coronary vasospasm with no lesion noted so patient will be managed in PCU. Continue present treatment with baby aspirin, ticagrelor and IV heparin. Give acetaminophen as needed for [id number] (level 1-5/10) pain or fever. Give morphine IV as needed for severe (level 6-10/10) pain. Give ondansetron IV as needed for nausea and vomiting. 2. Leukocytosis of 12.7K present on admission complicating #1 - Likely due to acute stress response related to #1 with no signs of acute infection at this time. UA pending at this time. 3. Mild Hyponatremia of 131 mmol/L present on admission compounding #1 & #2 - Give NS IVF and recheck CMP in AM to follow trend. 4. CKD; stage IV adding to the medical complexity of #1 - #3 - Stable with serum creatinine of 2.9 mg/dL and eGFR of 21 mL/min. 5. Obesity (class II); with a BMI of 36 this admission plus MATTHEW; on CPAP addingto the burden of disease outlined from #1 - #4 - Weight loss will be recommended. Check TSH. Resume nocturnal CPAP. This complicates his case and may hamper recovery. 6. Essential hypertension; on amlodipine, losartan, metoprolol, spironolactone and furosemide - Patient will be continued on medications of cardiology's choosing. 7. Hyperlipidemia; on atorvastatin - Resume statin. 8. DM-2 of unknown control on glimepiride - NPO for now. Check FSBS q. 6 hoursplus SSI. 9. Former tobacco abuse x ~30 years; with subsequent COPD - Stable with no evidence of acute flare at this time. 10. History of TIA - Noted. 11. History of CHF - Stable with no signs of volume overload at this time. 12. History of syncope - Noted. 13. History of prostatectomy - Noted. 14. History of COVID-19 - Noted. 15. DVT prophylaxis - Patient on IV heparin for #1. Total time: Approximately (but not less than) 75 minutes. Charges/Coding Visit Charges Inpatient E&M: 07064 Init Hosp L3 12/03/24 0556 <Electronically signed by Alex Sow DO> Cosigner Signature (if applicable): CC: Dr. Alex Sow DO; Dr. Marycarmen Rodriguez DO~ Signed [facility] Work Phone: 1(680) 197-904008-02-2025 Discharge summary Author Rasheed Canela [facility] Note Date/Time December 02, 2024 8:5 3pm [facility] Medical Records Department [address] [place] [address] [place] [address] Emergency Department Summary 12/02/24 MR#: [id number] Acct: [id number] Name: ERIBERTO RICO Rep #:[id number] : 1945 79 From: Rasheed Canela MD PCP: Dr. Marycarmen Rodriguez, DO Status:ADM IN Location: ICU ICU02-1 HPI [...] EKG changes consistent with a ST elevation ND. He had 3 to 4 mm of [...] Prior Similar Symptoms: Yes and With Prior ND CVD Risk Factors: Positive for Hypertension, Diabetes and Hypercholesterolemia [facility] Medical History Anemia Diabetes mellitus Chronic [...] kidney disease, stage 3 Atherosclerotic heart disease [place] coronary artery w/angina pectoris Type 2 diabetes [...] was reviewed. Spoke with Dr. Simpson the data developer. He was made aware of patient's history, EKG findings and prehospital treatment. Lab Data Attestation: I reviewed the patient's lab results. Lab results narrative: EKG was not repeated since prehospital EKG revealed ST elevation ND with reciprocal changes. CBC reveals mild anemia [...] 76.7 H Lymph % (Auto) 8.9 L Curry % (Auto) 12.7 H Eos % (Auto) [...] healthcare provider: Hospitalist (Dr. Alex Handley) and Sanitation Technician (roll skinner) Critical Care Time Critical Care Time: Yes Critical care time (excluding procedures): 30-74 minutes (15), Including time spent: (History, physical, documentation, prehospital med direction, discussion with , review of prior records and independent rotation of EKG), Discussing w/Patient &/or Family/Director Of Strategic Marketing (Spoke with who informing that he just left the hospital this afternoon to attend his granddaughter's wedding.), Discussing w/Consultants (roll skinner and hospitalist) and Arranging Admission or Transfer Discharge Plan Dx/Rx/DC Orders Clinical Impression: Acute ST elevation myocardial infarction (STEMI) of inferior wall, Obstructive sleep apnea, Obesity, Chronic kidney disease, Diabetes mellitus, Hyperlipidemia Disposition Disposition: Acute Care Hospital [facility] What to do if you have Problems For any increased pain, shortness of breath, bleeding, nausea or vomiting, chestpain, or any unexpected problems, contact your Primary Care Provider. Call [facility] ([phone]) or report to the closest Emergency Room. Call 911 if necessary. 12/02/242052 <Electronically signed by Rasheed Canela MD> Cosigner Signature (if applicable): CC: Dr. Marycarmen Rodriguez, ~ Signed [facility] Work Phone: 1(712) 905-521808-02-2025 Consult note Author Jamar Tapia [facility] Note Date/Time December 02, 2024 12: 23pm [facility] Medical Records Department [address] [place] [address] Consultation - Neurology 12/02/24 1207 MR#: [id number] Acct: [id number] Name: ERIBERTO RICO Rep #:[id number] : 1945 79 From: Jamar Hooker PCP: Dr. Marycarmen Rodriguez, Status:ADM IN Location: [place] [address] Assessment and Plan: Neuro Assessment/Plan ERIBERTO RICO [...] questions or concerns. Stroke to sign off. [facility] Medical History (Updated 12/01/24 @ 09:[address] Nickie Danielson, ) Anemia Diabetes mellitus Chronic kidney disease Shortness [...] kidney disease, stage 3 Atherosclerotic heart disease [place] coronary artery w/angina pectoris Type 2 diabetes [...] 78.9 H, Lymph % (Auto) 7.6 L, Curry % (Auto) 12.0 H, Eos % (Auto) [...] Physician: Marycarmen Rodriguez Performed By: Treva Black, RDCS, RVT Brain CT 12/01/24 19:30 IMPRESSION: 1. No acute intracranial abnormality. 2. Age-related senescent changes. Reading Location: [facility] Active Medications Active Medications Active Medications: Current [...] mls @ 15 mls/hr 11/30/24 17:25 IV .[id number] PRN Saline Flush Sodium Chloride 250 mls @ 15 mls/hr 11/30/24 17:25 IV .[id number] PRN Additional IVPB Infusion Insulin Human Lispro 0 unit 11/30/24 22:00 12/02/24 06:30 Insulin Lispro 100 Unit/Ml Insuln.Pen SC Not Given [facility] Protocol Labetalol HCl 10 - 20 mg [...] or with change in RN caregiver Freq: [id number] Protocol: Activity Type Activity Date Activity User E-sign Co-sign Detail Recorded Client Recorded Date Recorded By Document 12/01/24 20:15 [id number] 12/01/24 20:28 CD 12/01/24 20:15 [facility] Stroke [...] and with change in RN caregiver. Freq: [id number] Protocol: Activity Type Activity Date Activity User E-sign Co-sign Detail Recorded Client Recorded Date Recorded By Document 12/02/24 10:00 TSTIKA [id number] 12/02/24 10:20 TSTIKA 12/02/24 10:00 [facility] Stroke [...] Hay MD; Dr. Marycarmen Rodriguez DO~ Signed [facility] Work Phone: 1(340) 396-858108-02-2025 Discharge summary Author Rasheed Canela [facility] Note Date/Time December 02, 2024 8:5 3pm [facility] Medical Records Department [address] [place] [address] Emergency Department Summary 12/02/24 MR#: [id number] Acct: [id number] Name: ERIBERTO RICO Rep #:[id number] : [...] EKG changes consistent with a ST elevation ND. He had 3 to 4 mm of [...] Prior Similar Symptoms: Yes and With Prior ND CVD Risk Factors: Positive for Hypertension, Diabetes and Hypercholesterolemia [facility] Medical History Anemia Diabetes mellitus Chronic kidney [...] kidney disease, stage 3 Atherosclerotic heart disease [place] coronary artery w/angina pectoris Type 2 diabetes [...] was reviewed. Spoke with Dr. Simpson the data developer. He was made aware of patient's history, EKG findings and prehospital treatment. Lab Data Attestation: I reviewed the patient's lab results. Lab results narrative: EKG was not repeated since prehospital EKG revealed ST elevation ND with reciprocal changes. CBC reveals mild anemia [...] 76.7 H Lymph % (Auto) 8.9 L Curry % (Auto) 12.7 H Eos % (Auto) [...] healthcare provider: Hospitalist (Dr. Alex Handley) and Sanitation Technician (roll skinner) Critical Care Time Critical Care Time: Yes Critical care time (excluding procedures): 30-74 minutes (15), Including time spent: (History, physical, documentation, prehospital med direction, discussion with , review of prior records and independent rotation of EKG), Discussing w/Patient &/or Family/Director Of Strategic Marketing (Spoke with who informing that he just left the hospital this afternoon to attend his granddaughter's wedding.), Discussing w/Consultants (roll skinner and hospitalist) and Arranging Admission or Transfer Discharge Plan Dx/Rx/DC Orders Clinical Impression: Acute ST elevation myocardial infarction (STEMI) of inferior wall, Obstructive sleep apnea, Obesity, Chronic kidney disease, Diabetes mellitus, Hyperlipidemia Disposition Disposition: Acute Care Hospital [facility] What to do if you have Problems For any increased pain, shortness of breath, bleeding, nausea or vomiting, chestpain, or any unexpected problems, contact your Primary Care Provider. Call [facility] ([phone]) or report to the closest Emergency Room. Call 911 if necessary. 12/02/242052 <Electronically signed by Rasheed Canela MD> Cosigner Signature (if applicable): CC: Dr. Marycarmen Rodriguez, ~ Signed [facility] Work Phone: 1([phone]) 247-727808-02-2025 Hospital Discharge instructionsAdditional Instructions 1. It is very important to not miss any doses of your ticagrelor (Brilinta) and aspirin. Please take these as prescribed with no missed doses. If you miss doses you could clot off your stents. Date of Discharge: 12/02/24[facility] Work Phone: 1(204) 488-132808-02-2025 [facility]08-01-2025 Progress note Author Abraham [facility] Note Date/Time December 01, 2024 8:2 6pm [facility] Medical Records Department [address] [place] [address] Progress Note - Hospitalist 12/01/242020 MR#: [id number] Acct: [id number] Name: ERIBERTO RICO Rep #:[id number] : 1945 79 From: Abraham inman DO PCP: Dr. Marycarmen Rodriguez DO Status:ADM IN Location: [place] [address] Hospitalist Note Stroke alert called around 7 PM. Last known well 6:55 PM. Patient reported to [facility] that he had left facial numbness [...] (if applicable): CC: ~ Signed [facility] Work Phone: [phone]) 486-770808-01-2025 Radiology Diagnostic study [facility]08-01-2025 Progress note Author Nickie Danielson [facility] Note Date/Time December 01, 2024 3:5 0pm [facility] Medical Records Department [address] [place] [address] Progress Note - Hospitalist 12/01/24712 MR#: [id number] Acct: [id number] Name: ERIBERTO RICO Rep #:[id number] : 1945 79 From: Nickie Danielson DO PCP: Dr. Marycarmen Rodriguez DO Status:ADM IN Location: [place] [address] Reason for Visit Chief Complaint: STEMI Subjective [...] 80.9 H, Lymph % (Auto) 10.1 L, Curry % (Auto) 7.7, Eos % (Auto) 0.4, Baso % (Auto) 0.2, Absolute Neuts (auto) 15.5 H, Absolute Lymphs (auto) 1.93, Nucleated RBC % 0.1, PT 16.1 H, INR 1.3, APTT 112.9 H*, Sodium 135, Potassium 4.4, Chloride 98, Carbon Dtkjdze64.3 L, Anion Gap 19 H, BUN 45 [...] evidence of acute pulmonary disease. Reading Location: [facility] Physical Exam Const alert, oriented x3, [...] subcu heparin Charges/Coding Visit Charges Inpatient E&M: 99202 Subs Hosp L2 12/01/24 1550 <Electronically signed by Nickie Danielson DO> Cosigner Signature (if applicable): CC: ~ Signed [facility] Work Phone: 1([phone]) 243-616208-01-2025 Progress note Author Marcin Araujo [facility] Note Date/Time December 01, 2024 7:3 7am [facility] Medical Records Department [address] [place] [address] Progress Note - Cardiology 12/01/24 0734 MR#: [id number] Acct: [id number] Name: ERIBERTO RICO Rep #:[id number] : [...] 80.9 H, Lymph % (Auto) 10.1 L, Curry % (Auto) 7.7, Eos % (Auto) 0.4, Baso % (Auto) 0.2, Absolute Neuts (auto) 15.5 H, Absolute Lymphs (auto) 1.93, Nucleated RBC % 0.1, PT 16.1 H, INR 1.3, APTT 112.9 H*, Sodium 135, Potassium 4.4, Chloride 98, Carbon Hacykra19.3 L, Anion Gap 19 H, BUN 45 [...] 80.9 H, Lymph % (Auto) 10.1 L, Curry % (Auto) 7.7, Eos % (Auto) 0.4, [...] evidence of acute pulmonary disease. Reading Location: [facility] Physical Exam Const alert, oriented x3 [...] (if applicable): CC: ~ Signed [facility] Work Phone: [phone]) [phone] Discharge summary Author Isael Bernabe [facility] Note Date/Time November 30, 2024 9:35 pm [facility] Medical Records Department [address] [place] [address] Emergency Department Summary 11/30/24 MR#: [id number] Acct: [id number] Name: ERIBERTO RICO Rep #:[id number] : [...] was sent, they administeredaspirin, Brilinta, and heparin. [facility] Medical History Diabetes mellitus Chronic kidney disease [...] kidney disease, stage 3 Atherosclerotic heart disease [place] coronary artery w/angina pectoris Type 2 diabetes [...] laboratory work that was requested by the [facility]. Does not have elevation of his white [...] 80.9 H Lymph % (Auto) 10.1 L Curry % (Auto) 7.7 Eos % (Auto) 0.4 [...] myocardial infarction Disposition Disposition: Acute Care Hospital [facility] Discharge Date/Time: 11/30/24 15:21 What to do if you have Problems For any increased pain, shortness of breath, bleeding, nausea or vomiting, chestpain, or any unexpected problems, contact your Primary Care Provider. Call [facility] ([phone]) or report to the closest Emergency Room. Call 911 if necessary. 11/30/242134 <Electronically signed by Isael Bernabe MD> Cosigner Signature (if applicable): CC: Dr. Marycarmen Rodriguez, ~ Signed [facility] Work Phone: [phone]) [phone] Progress note Author Isael [facility] Note Date/Time November 30, 2024 9:33 pm [facility] Medical Records Department [address] [place] [address] Quality Report 11/30/241604 MR#: [id number] Acct: [id number] Name: ERIBERTO RICO Rep #:[id number] : [...] applicable): Date Donald Bill CC: ~ Signed [facility] Work Phone: [phone]) [phone] History and physical note Author Abraham Ridley [facility] Note Date/Time November 30, 2024 9:30 pm [facility] Medical Records Department [address] [facility] [place] [address] H&P Exam - Hospitalist 11/30/24 1705 MR#: [id number] Acct: [id number] Name: ERIBERTO RICO Rep #:[id number] : 1945 79 From: Abraham inman DO PCP: Dr. Marycarmen Rodriguez DO Status:ADM IN Location: ICU CVICU20 3-1 HPI - General General Date of Admission: 11/30/24 Date of Service: 11/30/24 Chief Complaint: STEMI HPI Narrative ERIBERTO RICO, is a 79 M who presented to [facility] on 11/30/2024 as a STEMI alert. Follows with [place] cardiology with complex CAD history, see office [...] STEMI. He was taken emergently to the [facility] and coronary angiography revealed a subacute stent [...] room air. No other acute concerns currently. [facility] Medical History Diabetes mellitus Chronic kidney [...] kidney disease, stage 3 Atherosclerotic heart disease [place] coronary artery w/angina pectoris Type 2 diabetes [...] 80.9 H, Lymph % (Auto) 10.1 L, Curry % (Auto) 7.7, Eos % (Auto) 0.4, [...] Patient is a 79-year-old male who presented [facility] ED on 11/30/2024 as a STEMI alert. [...] with hyperglycemia: Blood glucose 328 on admit. NvewT8v from 2022 was 7.7%. Repeat A1c ordered. [...] 75 minutes. Charges/Coding Visit Charges Inpatient E&M: 26321 Init Hosp L3 11/30/242129 <Electronically signed by Abraham Ridley DO> Cosigner Signature (if applicable): CC: Dr. Abraham Ridley, DO; Dr. Marycarmen Rodriguez, DO~ Signed [facility] Work Phone: 1([phone]) [phone] Radiology Diagnostic study [facility]2025 Consult note Author Jose Hay [facility] Note Date/Time November 30, 2024 4:51 pm [facility] Medical Records Department [address] [place] [address] Consultation - Cardiology 11/30/24 1642 MR#: [id number] Acct: [id number] Name: ERIBERTO RICO Rep #:[id number] : 1945 79 From: Jose Hay MD PCP: Dr. Marycarmen Jennifer, DO Status:REG ER Location: ED Assessment & [...] infarction. Subsequently a STEMI alert was called. [facility] Medical History (Updated 11/30/24 @ 16:48 [...] kidney disease, stage 3 Atherosclerotic heart disease [place] coronary artery w/angina pectoris Type 2 diabetes [...] 80.9 H, Lymph % (Auto) 10.1 L, Curry % (Auto) 7.7, Eos % (Auto) 0.4, [...] 80.9 H, Lymph % (Auto) 10.1 L, Curry % (Auto) 7.7, Eos % (Auto) 0.4, [...] EPS: PPM: CXR: Chest CT Scan: 11/30/24 8261 <Electronically signed by Jose Hay MD> Cosigner Signature (if applicable): CC: Dr. Jose Hay MD; Dr. Marycarmen Rodriguez, DO~ Signed [facility] Work Phone: 1([phone]) 318-118007-29-2025 Consult note Author Cyndie Frye [facility] Note Date/Time November 28, 2024 12:2 8pm [facility] Medical Records Department [address] [place] [address] Counseling Note - Pharmacy 11/28/2420 MR#: [id number] Acct: [id number] Name: ERIBERTO RICO Rep #:[id number] : 1945 79 From: Cyndie Frye PCP: Dr. Marycarmen Rodriguez, Status:ADM EDMUND Y Location: [place] [address] Pharmacy [place] Med Reconciliation Pharmacy Service has performed discharge [...] Signature (if applicable): Date CC: ~ Signed [facility] Work Phone: [phone]) 178-487507-28-2025 Discharge summary Author Jose Hay [facility] Note Date/Time November 27, 2024 11:3 5am [facility] Medical Records Department [address] [place] [address] Instructions for Home/Discharge Instructions 11/27/24 1128 MR#: [id number] Acct: [id number] Name: ERIBERTO RICO Rep #:[id number] : [...] Care Provider: Marycarmen Rodriguez Instructions Print Language: Japanese Discharge Orders/Prescriptions Prescriptions: New furosemide 80 mg [...] Marycarmen Rodriguez DO ~ Signed [facility] Work Phone: [phone]) [phone] Radiology Diagnostic study [facility]07-27-2025 Radiology Diagnostic study [facility]07-27-2025 Radiology Diagnostic study [facility] 11-26-2024 Radiology Diagnostic study [facility]07-27-2025 Radiology Diagnostic study [facility]07-27-2025 Radiology Diagnostic study [facility]07-27-2025 Discharge summary Author Isael Bernabe [facility] Note Date/Time November 26, 2024 9:41 pm [facility] Medical Records Department [address] [place] [address] Emergency Department Summary 11/26/24 MR#: [id number] Acct: [id number] Name: ERIBERTO RICO Rep #:[id number] : [...] an outpatient tomorrow. He was at a constitution party today, walking down the steps of [...] presents status post fall with chest heaviness. [facility] Medical History Shortness of breath Unstable angina [...] kidney disease, stage 3 Atherosclerotic heart disease [place] coronary artery w/angina pectoris Type 2 diabetes [...] cleansed and dressed. He was given 1 [place] which he usually takes at home for pain. He was able to ambulate without difficulty. At this point in time, he is motivated for discharge. I do not feel that he requires admission at this time or observation. I feel he can be discharged to follow-upwith his cardiac catheterization tomorrow morning. Patient will continue his [place] at home and follow-up as previously directed. [...] 71.8 H Lymph % (Auto) 16.7 L Curry % (Auto) 9.5 Eos % (Auto) 1.3 [...] IMPRESSION: No acute intracranial process. Reading Location: [facility] Cervical Spine CT 11/26/24 18:03 IMPRESSION: No acute compression deformity, fracture, or subluxation. Moderate multilevel degenerative changes of the cervical spine. Cervical ACDF with interbody spacers spanning C4-C6 without hardware complications. Reading Location: [facility] Chest X-Ray 11/26/24 18:03 IMPRESSION: Negative for edema Reading Location: [facility] Knee X-Ray 11/26/24 18:03 IMPRESSION: Degenerative changes without fracture Reading Location: [facility] Hand X-Ray 11/26/24 18:07 IMPRESSION: Degenerative changes. No visible fracture. Reading Location: [facility] Knee X-Ray 11/26/24 18:07 IMPRESSION: Joint effusion Reading Location: [facility] Management Discussion w/another healthcare provider: Sanitation Technician (Dr. Araujo) Discharge Plan Triage Chief Complaint: [...] with new or worsening symptoms. Print Language: Japanese Disposition Disposition: Home, Self Care What to do if you have Problems For any increased pain, shortness of breath, bleeding, nausea or vomiting, chestpain, or any unexpected problems, contact your Primary Care Provider. Call [facility] ([phone]) or report to the closest Emergency Room. Call 911 if necessary. 11/26/242140 <Electronically signed by Isael Bernabe MD> Cosigner Signature (if applicable): CC: Dr. Marycarmen Rodriguez DO ~ Signed [facility] Work Phone: [phone] Hospital Discharge instructionsAdditional Instructions Have your cardiac catheterization performed tomorrow as scheduled at 8:30 in the morning. Return with new or worsening symptoms.[facility] Work Phone: 1([phone]) 162-326407-24-2025 Radiology Diagnostic study [place] [address]-21-2025 Radiology Diagnostic study [facility]05-21-2025 Evaluation note* Diagnosis Onset Date Resolution Status Admit Date COPD (chronic obstructive pulmonary disease) chronic September 20 10:13am Diastolic heart failure chronic M ay 2024 10:13am Obesity chronic September 20, 2024 10:13am Obstructive sleep apnea chronic [facility] 2024 10:13am Shortness of breath acute October 25, 2024 7:54am Bilateral lower extremity 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, 2024 7:54am Chest pain chronic October 25 7:54am Chronic kidney disease, stage 3 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 October 25, 2024 7:54am Coronary artery [...] 31 10:00am Diastolic heart failure chronic [facility] 2024 10:00am Obesity chronic October 31, 2024 10:00am Obstructive sleep apnea chronic [facility] 2024 10:00am [facility] Work Phone: [phone]) [phone] Evaluation note* Diagnosis Onset Date Resolution Status Admit Date COPD (chronic obstructive pulmonary disease) chronic September 20 10:13am Diastolic heart failure chronic ay 2024 10:13am Obesity chronic September 20, 2024 10:13am Obstructive sleep apnea chronic [facility] 2024 10:13am Shortness of breath acute October 25, 2024 7:54am 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 lower extremity 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, 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 7:54am Chest pain chronic October 25 7:54am Chronic kidney disease, stage 3 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 October 25, 2024 7:54am Coronary artery [...] 22, 2024 10:53am Bilateral lower extremity 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 November 22, 2024 10:53am Chest pain chronic November 22 10:53am Chronic kidney disease, stage 3 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 November 22, 2024 10:53am Essential hypertension chronic Ju ly 2024 10:53am Hyperlipidemia chronic November 22, 2024 10:53am Obesity chronic November 22 10:53am Type 2 diabetes mellitus wit hout complications chronic November 22, 2024 10:53am [facility] Work Phone: 1([phone]) 311-950605-21-2025 Evaluation note* Diagnosis Onset Date Resolution Status Admit Date COPD (chronic obstructive pulmonary disease) chronic September 20 10:13am Diastolic heart failure chronic M ay 2024 10:13am Obesity chronic September 20, 2024 10:13am Obstructive sleep apnea chronic M ay 2024 10:13am Shortness of breath acute October 25, 2024 7:54am 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 lower extremity 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, 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 7:54am Chest pain chronic October 25 7:54am Chronic kidney disease, stage 3 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 October 25, 2024 7:54am Coronary artery [...] 22, 2024 10:53am Bilateral lower extremity 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 November 22, 2024 10:53am Chest pain chronic November 22 10:53am Chronic kidney disease, stage 3 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 November 22, 2024 10:53am Essential hypertension [...] 2024 4:59pm Chronic kidney disease, stage 3 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 November 30, 2024 4:59pm Coronary artery disease chronic J shannon 2024 4:59pm Dyslipidemia chronic November 30, 025 4:59pm Essential hypertension chronic Ju ly 2024 4:59pm [facility] Work Phone: [phone]) 608-676105-21-2025 Evaluation note* Diagnosis Onset Date Resolution Status [...] chronic October 25, 2024 7:54am Obesity chronic Lara 25th, 202 5 7:54am Type 2 diabetes mellitus without complications [...] November 302024 4:59pm Leukocytosis acute November 30, 2 025 4:59pm STEMI (ST elevation myocardi [...] Essential hypertension chronic Ju ly 2024 4:59pm [facility] Work Phone: [phone]) [phone] Evaluation note* Diagnosis Onset Date Resolution Status Admit Date COPD (chronic obstructive pulmonary disease) chronic September 20 10:13am Diastolic heart failure chronic [facility] 2024 10:13am Obesity chronic September 20, 2024 10:13am Obstructive sleep apnea chronic [facility] 2024 10:13am Shortness of breath acute October [...] 7:54am Type 2 diabetes mellitus without complications October 25, 2024 7:54am Asthma acute October [...] sleep apnea chronic A ugust 2024 8:29pm [facility] Work Phone: 1([phone]) 447-819205-21-2025 Evaluation note* Diagnosis Onset Date Resolution Status Admit Date COPD (chronic obstructive pulmonary disease) chronic September 20 10:13am Diastolic heart failure chronic M ay 2024 10:13am Obesity chronic September 20, 2024 10:13am Obstructive sleep apnea chronic M ay 2024 10:13am Shortness of breath acute October 25, 2024 7:54am Bilateral lower extremity edema chronic October 25, 2024 7:54am Hyperlipidemia chronic October 25, 2024 7:54am Obesity chronic October 25 7:54am Type 2 diabetes mellitus without complications chronic October 25, 2024 7:54am Chest pain resolved October 25 7:54am Coronary artery disease inactive J une 2024 7:54am Essential hypertension inactive Ju ne 2024 7:54am Chronic kidney disease, stag e 3 deleted October 25, 2024 7:54am Asthma acute October [...] extremity edema chronic November 22, 2024 10:53am Hyperlipidemia chronic November 22, 2024 10:53am Obesity chronic November 22 10:53am Type 2 diabetes mellitus without complications chronic November 22, 2024 10:53am Chest pain resolved November 22 10:53am Essential hypertension inactive Ju ly 2024 10:53am Chronic kidney disease, stag e 3 deleted November 22, 2024 10:53am Acute kidney injury superimposed on stage 4 chronic kidney disease acute October 4:58pm Leukocytosis acute November 30, 2 025 4:58pm Chest pain resolved November 30 4:58pm STEMI (ST elevation myocardial infarction) November 30, 2024 resolved October 4:58pm Chronic kidney disease inactive Ju ly 2024 4:58pm Coronary artery disease inactive J shannon 2024 4:58pm Diabetes mellitus inactive November 302024 4:58pm Dyslipidemia inactive November 30, 2 025 4:58pm Essential hypertension inactive Ju ly 2024 4:58pm Chronic kidney disease, stag e 3 deleted November 30, 2024 4:58pm Acute ST elevation myocardia l infarction (STEMI) of inferior wall acute December 03, 2024 2:01am Coronary artery vasospasm acute December 03, 2024 2:01am History of acute inferior wall ND acute December 03, 2024 2:01am Hyponatremia acute December 03, 2024 2:01am Leukocytosis acute December 03, 2024 2:01am Nonsustained monomorphic ventricular tachycardia acute December 032024 2:01am Obesity (BMI 30-39.9) acute Dec 2:01am CHF (congestive heart failure) chronic December 03, 2024 2:01am CKD (chronic kidney disease) stage 4, GFR 15-29 ml/min chronic December 03, 2024 2:01am Hyperlipidemia chronic December 2:01am Obesity chronic December 03 2:01am Obstructive sleep apnea chronic 2024 2:01am STEMI (ST elevation myocardial infarction) November 30, 2024 resolved December 2:01am Chronic kidney disease inactive Au 2024 2:01am Coronary artery disease inactive A 2024 2:01am Diabetes mellitus inactive December 03, 2024 2:01am Dyslipidemia inactive December 03, 2024 2:01am [facility] Work Phone: 1(576) 969-197805-21-2025 Evaluation note* Diagnosis Onset Date Resolution Status Admit Date COPD (chronic obstructive pulmonary disease) chronic September 20 10:13am Diastolic heart failure chronic M 2024 10:13am Obesity chronic September 20, 2024 10:13am Obstructive sleep apnea chronic M ay 2024 10:13am Shortness of breath acute October 25, 2024 7:54am Bilateral lower extremity edema chronic October 25, 2024 7:54am Hyperlipidemia chronic October 25, 2024 7:54am Obesity chronic October 25 7:54am Type 2 diabetes mellitus without complications chronic October 25, 2024 7:54am Chest pain resolved October 25 7:54am Coronary artery disease inactive J une 2024 7:54am Essential hypertension inactive Ju ne 2024 7:54am Chronic kidney disease, stag e 3 deleted October 25, 2024 7:54am Asthma acute October 31, 2024 10:00am Central sleep apnea acute October 31, 2024 10:00am COPD (chronic obstructive pulmonary disease) chronic October 31 10:00am Diastolic heart failure chronic J shannon2024 10:00am Obesity chronic October 31, 2024 10:00am Obstructive sleep apnea chronic J [facility] 2024 10:00am Presence of stent in coronar y artery Aug, 2022 acute November 22, 2024 10:53am Shortness of breath acute November 22, 2024 10:53am Bilateral lower extremity edema chronic November 22, 2024 10:53am Hyperlipidemia chronic November 22, 2024 10:53am Obesity chronic November 22 10:53am Type 2 diabetes mellitus without complications chronic November 22, 2024 10:53am Chest pain resolved November 22 10:53am Essential hypertension inactive Ju ly 2024 10:53am Chronic kidney disease, stag e 3 deleted November 22, 2024 10:53am Acute kidney injury superimposed on stage 4 chronic kidney disease acute October 4:58pm Leukocytosis acute November 30 025 4:58pm Chest pain resolved November 30 4:58pm STEMI (ST elevation myocardial infarction) November 30, 2024 resolved October 4:58pm Chronic kidney disease inactive Ju ly 2024 4:58pm Coronary artery disease inactive J shannon 2024 4:58pm Diabetes mellitus inactive November 302024 4:58pm Dyslipidemia inactive Gloria 31st, 2 025 4:58pm Essential hypertension inactive Ju ly 2024 4:58pm Chronic kidney disease, stag e 3 deleted November 30, 2024 4:58pm Acute ST elevation myocardia l infarction (STEMI) of inferior wall acute December 03, 2024 2:01am Coronary artery vasospasm acute December 03, 2024 2:01am History of acute inferior wall ND acute December 03, 2024 2:01am Hyponatremia acute December 03, 2024 2:01am Leukocytosis acute December 03, 2024 2:01am Nonsustained monomorphic ventricular tachycardia acute December 032024 2:01am Obesity (BMI 30-39.9) acute Dec 2:01am CHF (congestive heart failure) chronic December 03, 2024 2:01am CKD (chronic kidney disease) stage 4, GFR 15-29 ml/min chronic December 03, 2024 2:01am Hyperlipidemia chronic December 2:01am Obesity chronic December 03 2:01am Obstructive sleep apnea chronic A 2024 2:01am STEMI (ST elevation myocardial infarction) November 30, 2024 resolved December 2:01am Chronic kidney disease inactive 2024 2:01am Coronary artery disease inactive A 2024 2:01am Diabetes mellitus inactive December 03, 2024 2:01am Dyslipidemia inactive December 03, 2024 2:01am Chest pain acute December 07 4:24pm Recent ST elevation myocardial infarction (STEMI) acute 2024 4:24pm Shortness of breath acute 2024 4:24pm [facility] Work Phone: 1(886) 414-846605-21-2025 Evaluation note* Diagnosis Onset Date Resolution Status Admit Date COPD (chronic obstructive pulmonary disease) chronic September 20 10:13am Diastolic heart failure chronic 2024 10:13am Obesity chronic September 20, 2024 10:13am Obstructive sleep apnea chronic [facility] 2024 10:13am Shortness of breath acute October 25, 2024 7:54am Bilateral lower extremity edema chronic October 25, 2024 7:54am Hyperlipidemia chronic October 25, 2024 7:54am Obesity chronic October 25 7:54am Type 2 diabetes mellitus without complications chronic October 25, 2024 7:54am Chest pain resolved October 25 7:54am Coronary artery disease inactive J une 2024 7:54am Essential hypertension inactive Ju ne 2024 7:54am Chronic kidney disease, stag e 3 deleted October 25, 2024 7:54am Asthma acute October [...] extremity edema chronic November 22, 2024 10:53am Hyperlipidemia chronic November 22, 2024 10:53am Obesity chronic November 22 10:53am Type 2 diabetes mellitus without complications chronic November 22, 2024 10:53am Chest pain resolved November 22 10:53am Essential hypertension inactive Ju ly 2024 10:53am Chronic kidney disease, stag e 3 deleted November 22, 2024 10:53am Acute kidney injury superimposed on stage 4 chronic kidney disease acute October 4:58pm Leukocytosis acute November 30, 025 4:58pm Chest pain resolved November 30 4:58pm STEMI (ST elevation myocardial infarction) November 30, 2024 resolved October 4:58pm Chronic kidney disease inactive Ju ly 2024 4:58pm Coronary artery disease inactive J shannon 2024 4:58pm Diabetes mellitus inactive November 302024 4:58pm Dyslipidemia inactive November 30 025 4:58pm Essential hypertension inactive Ju ly 2024 4:58pm Chronic kidney disease, stag e 3 deleted November 30, 2024 4:58pm Acute ST elevation myocardia l infarction (STEMI) of inferior wall acute December 03, 2024 2:01am Coronary artery vasospasm acute December 03, 2024 2:01am History of acute inferior wall ND acute December 03, 2024 2:01am Hyponatremia acute December 03, 2024 2:01am Leukocytosis acute December 03, 2024 2:01am Nonsustained monomorphic ventricular tachycardia acute December 032024 2:01am Obesity (BMI 30-39.9) acute Dec 2:01am CHF (congestive heart failure) chronic December 03, 2024 2:01am CKD (chronic kidney disease) stage 4, GFR 15-29 ml/min chronic December 03, 2024 2:01am Hyperlipidemia chronic December 2:01am Obesity chronic December 03 2:01am Obstructive sleep apnea chronic 2024 2:01am STEMI (ST elevation myocardial infarction) November 30, 2024 resolved December 2:01am Chronic kidney disease inactive 2024 2:01am Coronary artery disease inactive A 2024 2:01am Diabetes mellitus inactive December 03, 2024 2:01am Dyslipidemia inactive December 03, 2024 2:01am Chest pain acute December 07 4:24pm DEAN (dyspnea on exertion) acute December 07, 2024 4:24pm Recent ST elevation myocardial infarction (STEMI) acute 2024 4:24pm Shortness of breath acute 2024 4:24pm [facility] Work Phone: 1(585) 757-945105-21-2025 Evaluation note* Diagnosis Onset Date Resolution Status Admit Date COPD (chronic obstructive pulmonary disease) chronic September 20 10:13am Diastolic heart failure chronic 2024 10:13am Obesity chronic September 20, 2024 10:13am Obstructive sleep apnea chronic 2024 10:13am Bilateral lower extremity edema chronic October 25, 2024 7:54am Hyperlipidemia chronic October 25, 2024 7:54am Obesity chronic October 25 7:54am Type 2 diabetes mellitus without complications chronic October 25, 2024 7:54am Chest pain resolved October 25 7:54am Shortness of breath resolved October 25, 2024 7:54am Coronary artery disease inactive J 2024 7:54am Essential hypertension inactive Ju ne 2024 7:54am Chronic kidney disease, stag e 3 deleted October 25, 2024 7:54am Asthma acute October 31, 2024 10:00am Central sleep apnea acute October 31, 2024 10:00am COPD (chronic obstructive pulmonary disease) chronic October 31 10:00am Diastolic heart failure chronic 2024 10:00am Obesity chronic October 31, 2024 10:00am Obstructive sleep apnea chronic 2024 10:00am Presence of stent in coronar y artery Aug, 2022 acute November 22, 2024 10:53am Bilateral lower extremity edema chronic November 22, 2024 10:53am Hyperlipidemia chronic November 22, 2024 10:53am Obesity chronic November 22 10:53am Type 2 diabetes mellitus without complications chronic November 22, 2024 10:53am Chest pain resolved November 22 10:53am Shortness of breath resolved November 22, 2024 10:53am Essential hypertension inactive [facility] 2024 10:53am Chronic kidney disease, stag e 3 deleted November 22, 2024 10:53am Acute kidney injury superimposed on stage 4 chronic kidney disease acute October 4:58pm Chest pain resolved November 30 4:58pm Leukocytosis resolved November 30, 2 025 4:58pm STEMI (ST elevation myocardial infarction) November 30, 2024 resolved October 4:58pm Chronic kidney disease inactive [facility] 2024 4:58pm Coronary artery disease inactive [facility] 2024 4:58pm Diabetes mellitus inactive November 302024 4:58pm Dyslipidemia inactive November 30, 2 025 4:58pm Essential hypertension inactive [facility] 2024 4:58pm Chronic kidney disease, stag e 3 deleted November 30, 2024 4:58pm Obesity (BMI 30-39.9) acute Dec 2:01am CHF (congestive heart failure) chronic December 03, 2024 2:01am CKD (chronic kidney disease) stage 4, GFR 15-29 ml/min chronic December 03, 2024 2:01am Hyperlipidemia chronic December 2:01am Obesity chronic December 03 2:01am Obstructive sleep apnea chronic A ug2024 2:01am Coronary artery vasospasm resolved December 03, 2024 2:01am Hyponatremia resolved December 03, 2024 2:01am Leukocytosis resolved December 03, 2024 2:01am Nonsustained monomorphic ventricular tachycardia resolved December 032024 2:01am STEMI (ST elevation myocardial infarction) November 30, 2024 resolved December 2:01am Acute ST elevation myocardia l infarction (STEMI) of inferior wall inactive December 03, 2024 2:01am Chronic kidney disease inactive [facility] 2024 2:01am [facility] 2:01am Diabetes mellitus inactive December 03, 2024 2:01am Dyslipidemia inactive December 03, 2024 2:01am History of acute inferior wall ND inactive December 03, 2024 2:01am DEAN (dyspnea on exertion) resolved December 07, 2024 4:24pm Shortness of breath resolved 2024 4:24pm Chest pain inactive December 07 4:24pm Recent ST elevation myocardial infarction (STEMI) inactive [facility] 2024 4:24pm Presence of stent in coronar y artery Aug, 2022 acute December 12 10:14am Bilateral lower extremity edema chronic December 12 10:14am Hyperlipidemia chronic December 10:14am Obesity chronic December 12, 10:14am Type 2 diabetes mellitus without complications chronic December 10:14am Chest pain resolved December 12, 025 10:14am Shortness of breath resolved 2024 10:14am Essential hypertension inactive [facility] 2024 10:14am Chronic kidney disease, stag e 3 deleted December 12 10:14am [facility] Work Phone: 1(171) 771-744905-21-2025 Evaluation note* Diagnosis Onset Date Resolution Status Admit Date COPD (chronic obstructive pulmonary disease) chronic September 20 10:13am Diastolic heart failure chronic 2024 10:13am Obesity chronic September 20, 2024 10:13am Obstructive sleep apnea chronic 2024 10:13am Bilateral lower extremity edema chronic October 25, 2024 7:54am Essential hypertension chronic 2024 7:54am Hyperlipidemia chronic October 25, 2024 7:54am Obesity chronic October 25 7:54am Shortness of breath chronic October 25, 2024 7:54am Type 2 diabetes mellitus without complications chronic October 25, 2024 7:54am Chest pain resolved October 25 7:54am Coronary artery disease inactive J une 2024 7:54am Chronic kidney disease, stage 3 deleted October 25, 2024 7:54am Asthma acute October 31, 2024 10:00am Central sleep apnea acute October 31, 2024 10:00am COPD (chronic obstructive pulmonary disease) chronic October 31 10:00am Diastolic heart failure chronic J shannon 2024 10:00am Obesity chronic October 31, 2024 10:00am Obstructive sleep apnea chronic J shannon 2024 10:00am Presence of stent in coronary artery Aug, 2022 acute November 22, 2024 10:53am Bilateral lower extremity edema chronic November 22, 2024 10:53am Essential hypertension chronic Ju ly 2024 10:53am Hyperlipidemia chronic November 22, 2024 10:53am Obesity chronic November 22 10:53am Shortness of breath chronic November 22, 2024 10:53am Type 2 diabetes mellitus without complications chronic November 22, 2024 10:53am Chest pain resolved November 22 10:53am Chronic kidney disease, stage 3 deleted November 22, 2024 10:53am Acute kidney injury superimposed on stage 4 chronic kidney disease acute October 4:58pm Essential hypertension chronic Ju ly 2024 4:58pm Chest pain resolved November 30 4:58pm Leukocytosis resolved November 30 025 4:58pm STEMI (ST elevation myocardial infarction) November 30, 2024 resolved October 4:58pm Chronic kidney disease inactive Ju ly 2024 4:58pm Coronary artery disease inactive J shannon 2024 4:58pm Diabetes mellitus inactive November 302024 4:58pm Dyslipidemia inactive November 30 2 025 4:58pm Chronic kidney disease, stage 3 deleted November 30, 2024 4:58pm Obesity (BMI 30-39.9) acute Dec 2:01am CHF (congestive heart failure) chronic December 03, 2024 2:01am CKD (chronic kidney disease) stage 4, GFR 15-29 ml/min chronic December 03, 2024 2:01am Hyperlipidemia chronic December 2:01am Obesity chronic December 03 2:01am Obstructive sleep apnea chronic A [id number] 2:01am Coronary artery vasospasm resolved December 03, 2024 2:01am Hyponatremia resolved December 03, 2024 2:01am Leukocytosis resolved December 03, 2024 2:01am Nonsustained monomorphic ventricular tachycardia resolved December 032024 2:01am STEMI (ST elevation myocardial infarction) November 30, 2024 resolved December 2:01am Acute ST elevation myocardial infarction (STEMI) of inferior wall inactive December 03, 2024 2:01am Chronic kidney disease inactive [facility] 2024 2:01am Coronary artery disease inactive A [facility] 2024 2:01am Diabetes mellitus inactive December 03, 2024 2:01am Dyslipidemia inactive December 03, 2024 2:01am History of acute inferior wall ND inactive December 03, 2024 2:01am Shortness of breath chronic 2024 4:24pm DEAN (dyspnea on exertion) resolved December 07, 2024 4:24pm Chest pain inactive December 07 4:24pm Recent ST elevation myocardial infarction (STEMI) inactive December 07, 2024 4:24pm Presence of stent in coronary artery Aug, 2022 acute December 12 10:14am Bilateral lower extremity edema chronic December 12 10:14am Essential hypertension chronic 2024 10:14am Hyperlipidemia chronic December 10:14am Obesity chronic December 12, 025 10:14am Shortness of breath chronic 2024 10:14am Type 2 diabetes mellitus without complications chronic December 10:14am Chest pain resolved December 12, 025 10:14am Chronic kidney disease, stage 3 deleted December 12 10:14am Central sleep apnea acute t 2024 2:35pm Chest pain acute December 15, 2 025 2:35pm Pericardial effusion acute Decu st 2024 2:35pm Angina pectoris chronic December 152024 2:35pm CKD (chronic kidney disease) stage 4, GFR 15-29 ml/min chronic December 15, 2024 2:35pm Diastolic heart failure chronic A ugust 2024 2:35pm Essential hypertension chronic Au taj 2024 2:35pm History of percutaneous transluminal coronary angioplasty August 18, 2018 chronic December 15 2:35pm Obstructive sleep apnea chronic A ugust 2024 2:35pm Type 2 diabetes mellitus without complications chronic December 2:35pm [facility] Work Phone: 1(188) 662-966603-18-2025 Procedure notey [facility] Pulmonary Services/Neurology [address] [place] [address] MR#: [id number] Acct: [id number] Name: ERIBERTO RICO Rep #:[id number] : 1945 78 From: Zen East DO Referring Dr: Marni Horn 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 Status: REG CLI Location: PSN Date: Sex: M C PSN 6 Minute Walk Test 6 Minute Walk Test 6 Minute Walk Test: 6 Minute Walk Test PSN:6-Minute Walk Test Start: 07/18/24 06:38 Freq: Status: Active Protocol: RESP.6MINW Document 07/18/24 06:00 [facility] (Rec: 07/18/24 06:47 [facility] [id number][facility] 6 Minute Walk Test Date Performed 07/18/24 Time Performed 06:00 Height 5 ft 9 in Weight: 230 lb Weight in Pounds 230.[address]: Marni Horn [employer]ARMWORKER ANIMAL Assistive device Cane used: Pre-test Oxygen Delivery [...] Date Dictated: 07/18/24 1032 Date Transcribed: 07/18/241031 Wildlife Ecology Professor: Dr. 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 October 25, 2024 7:54am Coronary artery disease chronic J 2024 7:54am Essential hypertension chronic Ju 2024 7:54am Hyperlipidemia chronic October 25, 2024 7:54am Obesity chronic October 25 7:54am Type 2 diabetes mellitus wit hout complications chronic October 25, 2024 7:54am Chest pain inactive October 25 7:54am [facility] Work Phone: 1([phone]) 232-324903-03-2025 Evaluation note* Diagnosis Onset Date Resolution Status [...] 25, 2024 7:54am Bilateral lower extremity 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, 2024 7:54am Chest pain chronic October 25 7:54am Chronic kidney disease, stage 3 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 October 25, 2024 7:54am Coronary artery disease chronic J une 2024 7:54am Essential hypertension chronic Ju ne 2024 7:54am Hyperlipidemia chronic October 25, 2024 7:54am Obesity chronic October 25 7:54am Type 2 diabetes mellitus wit hout complications chronic October 25, 2024 7:54am [facility] Work Phone: [phone]) [phone] Evaluation note* Diagnosis Onset Date Resolution Status [...] 25, 2024 7:54am 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 lower extremity 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, 2024 7:54am Chest pain chronic October 25 7:54am Chronic kidney disease, stage 3 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 October 25, 2024 7:54am Coronary artery [...] sleep apnea chronic J shannon 2024 10:00am [facility] Work Phone: 1([phone]) 955-178003-03-2025 Evaluation note* Diagnosis Onset Date Resolution Status [...] 25, 2024 7:54am 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 lower extremity 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, 2024 7:54am Chest pain chronic October 25 7:54am Chronic kidney disease, stage 3 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 October 25, 2024 7:54am Coronary artery [...] Obstructive sleep apnea chronic J 2024 10:00am [facility] Work Phone: 1([phone]) 887-706912-16-2024 Evaluation note* Diagnosis Onset Date Resolution Status Admit Date DEAN (dyspnea on exertion) acute April 17, 2024 3:51pm Bilateral lower extremity 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 April 17, 2024 3:51pm Chronic kidney disease, stage 3 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 April 17, 2024 3:51pm Coronary artery [...] chronic M arch 2024 1:10pm [facility] Work Phone: 1([phone]) 667-111611-18-2024 Evaluation note* Diagnosis Onset Date Resolution Status Admit Date Bilateral lower extremity 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 March 20, 2024 10:31am Chronic kidney disease, stage 3 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 March 20, 2024 10:31am Coronary artery disease chronic N ovember 2023 10:31am Essential hypertension chronic No vember 2023 10:31am Hyperlipidemia chronic March 032023 10:31am Obesity chronic March 20, 2024 10:31am Type 2 diabetes mellitus without complications chronic March 032023 10:31am DEAN (dyspnea on exertion) acute April 17, 2024 3:51pm 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 Hay [facility] September 01, 2022 9:55am Note Date/Time September 01, 2022 8:37am [facility] Medical Records Department [address] [place] [address] Instructions for Home/Discharge Instructions 09/01/22 0835 MR#: [id number] Acct: [id number] Name: ERIBERTO RICO Rep #:[id number] : [...] Up Care Please Follow Up With: Jose aHy MD When: 2-4 weeks Test Results: Test [...] Marycarmen Rodriguez DO ~ Signed [facility] Work Phone: 1([phone]) 266-555008-26-2021 Miscellaneous Notes* Assessment & Plan Note - [...] with any necessary intervention. documented in this [id number] History of Present illness Narrative* Eladio Ingram MD - 12/26/2020 11:05 AM EDT I saw Eriberto Rico in follow up in the office on 12/26/20. Eribetro apparently has been doing poorly recently with [...] patient is not nervous/anxious. documented in this [id number] Miscellaneous Notes* Assessment & Plan Note - Fernanda Acuña CNP - 10/09/2020 11:44 AM EDT Associated Problem(s): Coronary artery disease involving [place] coronary artery of [place] heart without angina pectoris Multiple previous cardiac catheterizations with intervention. Most recent cardiac caths were performed in 2018, August 03 at [place], and August 18 at [facility] in [place]. 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 The notes from the cath at [facility] indicate that they were able to get [...] intolerance, and chest pressure. documented in this [id number] History of Present illness Narrative* Fernanda Acuña CNP - 10/09/2020 11:19 AM EDT [facility] [address] [id number] Assessment & Plan: Hypertension Blood pressure mildly [...] without CPAP use. Coronary artery disease involving [place] coronary artery of [place] heart without angina pectoris Multiple previous cardiac catheterizations with intervention. Most recent cardiac caths were performed in 2018, August 03 at [place], and August 18 at [facility] in [place]. 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 The notes from the cath at [facility] indicate that they were able to get [...] re-establish care. He has been following at [facility] and [facility] for his cardiology care over the past 4 years. 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 Eriberto has long-standing coronary artery disease and his history is primarily obtained through records from [facility]. Eriberto is uncertain of many of the [...] Peripheral vascular disease (HCC) Sleep apnea Stroke ([facility]) Testicle swelling Past Surgical History: Procedure Laterality Date CARDIAC CATHETERIZATION N/A 01/04/2015 Left Heart Cath,Stent, EF 60%; Eladio Ingram MD; [facility] CARDIAC CATHETERIZATION N/A 01/28/2015 Left Heart Cath, EF 60%; Eladio Ingram MD; [facility] CARDIAC CATHETERIZATION N/A 06/18/2015 Left Heart Cath, Right Upper Extremity Angiogram, EF 60%; Eladio Ingram MD; [facility] CARDIAC CATHETERIZATION N/A 03/17/2016 Procedure: Left and Right Heart Cath Poss Stent; Surgeon: Eladio Ingram MD; Location: [facility]; Service: CARDIAC CATHETERIZATION 03/22/2014 EF 60% CARDIAC CATHETERIZATION 06/29/2013 EF 60% CARDIAC CATHETERIZATION 09/08/2012 EF 55% CARDIAC CATHETERIZATION 03/22/2014 EF 60% CARDIAC CATHETERIZATION Right 10/15/2016 Procedure: Left Heart Cath Possible PTCA/Stent; Surgeon: Merritt Arthur MD; Location: [facility]; Service: CHOLECYSTECTOMY CORONARY ANGIOPLASTY WITH STENT [...] ectopy, no acute changes. 50 minutes spent [id number] with patient Follow Up Ordered: Return for [...] patient is not nervous/anxious. documented in this [id number] NotePatient Outreach ([facility]) ERIBERTO RICO ([id number]) 1945 M Date Time Provider Department 06/25/20 YAMILETS, PETRONA HERNANDEZ During your visit today, we recorded the following information about you: Allergies As of Date: 06/25/2020 (No Known Allergies) Date Reviewed: 08/19/2018 Reviewed by: Moise (Marcin) MARCIN Mcgraw - Fully Assessed Order(s):SARS-COVID VACCINE 1ST DOSE APPT [[id number]] Order #: [id number] FUTURE Prescriptions as of 06/25/2020 Sig: CLOPIDOGREL [...] (HCC) [N17.9] 08/15/2018 Coronary artery disease involving [place] smith*08/15/2018 Stented coronary artery [Z95.5] 08/15/2018 Letter Text Encounter Status:Closed by GIANA NAVARRETEUSEErnie on 06/28/20[facility] Consult note Author Jsoe Hay [facility] Note Date/Time November 30, 2024 4:51 pm [facility] Medical Records Department [address] [place] [address] Consultation - Cardiology 11/30/24 1642 MR#: [id number] Acct: [id number] Name: ERIBERTO RICO Rep #:[id number] : [...] infarction. Subsequently a STEMI alert was called. [facility] Medical History (Updated 11/30/24 @ 16:48 [...] kidney disease, stage 3 Atherosclerotic heart disease [place] coronary artery w/angina pectoris Type 2 diabetes [...] 80.9 H, Lymph % (Auto) 10.1 L, Curry % (Auto) 7.7, Eos % (Auto) 0.4, [...] 80.9 H, Lymph % (Auto) 10.1 L, Curry % (Auto) 7.7, Eos % (Auto) 0.4, [...] Hay MD; Dr. Marycarmen Rodriguez DO~ Signed [facility] Work Phone: Discharge summary Author Nickie Danielson [facility] Note Date/Time December 02, 2024 2:2 7pm [facility] Medical Records Department [address] [place] [address] Discharge Summary 12/02/24 1336 MR#: [id number] Acct: [id number] Name: ERIBERTO RICO Rep #:[id number] : 1945 79 From: Nickie Danielson DO PCP: Dr. Marycarmen Rodriguez DO Status:ADM IN Location: [place] [address] Providers Date of Admission: 11/30/24 Date of [...] 650 mg PO Q6H PRN Pain -02/0910/12/23 glimepiride 4 mg tablet 4 mg PO [...] [facility] as a STEMI alert. The [...] inferior wall. He was taken emergency to [facility] and cardiac catheterization revealed subacute stent thrombosis [...] 78.9 H, Lymph % (Auto) 7.6 L, Curry % (Auto) 12.0 H, Eos % (Auto) [...] abnormality. 2. Age-related senescent changes. Reading Location: [facility] D/C Instructions Discharge Activity: Return to Normal Activity DC O2, CPAP, BIPAP Needs Home O2 Discharge instructions: No DC home with Oxygen: No Meaningful Use Info Meaningful Use Meaningful Use Diagnoses (Choose all that apply): AMI AMI/Post PCI/Angioplasty Aspirin given w/in 24hrs of arrival?: Yes ASA at discharge?: Yes Antiplatelet Therapy at Discharge:: Yes Statins at discharge?: Yes Joselo/ARB at discharge?: No Reason Joselo/ARB not ordered:: Worsening renal dysfunctn Beta Jeffrey at discharge?: Yes Done w/ Acute ND measure.: Yes Documented LVEF (%): 50 Discharge [...] Self Care Charges/Coding Visit Charges Inpatient E&M: 96703 Disch Hosp >30min 12/02/24 5598 <Electronically signed by Nickie Danielson DO> Cosigner Signature (if applicable): CC: Dr. Jose Hay MD; Dr. Nickie Danielson DO; Dr. Marycarmen Rodriguez DO~ Signed [facility] Work Phone: Discharge summary Author Alex Sanon [facility] Note Date/Time December 08, 2024 4:1 2pm [facility] Medical Records Department [address] [place] [address] Transfer to [facility] MR#: [id number] Acct: [id number] Name: ERIBERTO RICO Rep #:[id number] : 1945 79 From: Alex Sanon MD PCP: Dr. Marycarmen Rodriguez DO Status:ADM EDMUND Certification of patient admission REQUIRED AT TIME OF ADMISSION. I CERTIFY THAT POST-HOSPITAL ECF SERVICES ARE REQUIRED TO BE GIVEN ON AN IN-PATIENT BASIS BECAUSE OF THE ABOVE NAMED PATIENT'S NEED FOR INTERMEDIATE CARE ON A CONTINUING BASIS FOR THE CONDITION(S) FOR WHICH HE/SHE WAS RECEIVING IN-PATIENT HOSPITAL SERVICES PRIOR TO HIS/HER TRANSFER TO THE ECF. 12/08/24 1227<Electronically signed by Alex Sanon MD> Diet Diet Order/Speech Therapy: INPATIENT Hospital Diet / Speech Therapy Order(s) 12/07/24 17:20 Diet: Cardiac: Calorie-Controlled Food consistency:: Regular Liquid Consistency:: Regular/Thin Fluid restriction:: 1500 mL How many daily calories?: 2000 calorie DC O2, CPAP, BIPAP needs Home O2 Discharge instructions: No Therapies Physical Therapy: Eval and Treat Occupational Therapy: Eval and Treat Problem/Diagnosis (1) DEAN (dyspnea on exertion): Status: Acute Code(s): R06.00 - Dyspnea, unspecified Plan Patient is a 79-year-old gentleman with recent history of acute inferior STEMI 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 Patient was found to have elevated D-dimer admitted to monitored bed VQ scan ordered for subsequent evaluation 1. Exertional dyspnea ? Patient was found to have elevated D-dimer admitted to monitored bed VQ scan ordered for subsequent evaluation ? Patient VQ scan came back with low probability for pulmonary embolism. Decision was made to discharge patient back to his ECF 2. Recent acute inferior wall ND ? This was complicated by PLV dissection underwent emergency On 11/30 which showed subacute stent thrombosis at the proximal RCA s/p balloon angioplasty, along with thrombus embolization to the right posterior lateral ventricular branch s/p 2 new drug-eluting stents. Patient was subsequently readmitted following his initial evaluation with similar complaints seen in consultation bycardiology assessment was patient was having coronary vasospasms. Ranexa added to patient treatment regimen. 3. Physical deconditioning ? Patient was recently discharged to a care home facility plan is for patient to be discharged back once pulmonary embolism is ruled out 4. Depression with anxiety ? Patient is on fluoxetine as well as Remeron at night plan is to continue 5. Diabetes mellitus type II -patient's oral hypoglycemics held. Placed on long acting insulin, Accu-Cheks a.c. and at bedtime and covered with sliding scale insulin 6.Chronic kidney disease stage IIIb ? Patient kidney function at baseline 7. DVT prophylaxis ? Subcu heparin Allergies/Procedures Done in Hospital Allergies No Known Allergies Allergy (Verified 12/07/24 10:57) Type of Care/Length of Stay Estimated LOS: Convalescent Care Less Than 30 days Type of Care Needed: Skilled Rehab Potential: Good Prognosis: Good Additional Orders/Day of Discharge Day of Discharge: 12/08/24 Discharge Plan Admission Admit Date/Time: 12/07/24 16:24 Attending Provider: Alex Sanon Primary Care Provider: Marycarmen Rodriguez Consulting Providers: Shaan Santos Instructions Patient Instructions: ED Chest Pain, Uncertain Cause Additional Instructions / Restrictions: The chief legal officer wanted to make sure you are taking isosorbide, spironolactone, Lasix and Jardiance. Follow-up with the cardiology office. Discharge Orders/Prescriptions Prescriptions: Continued fluoxetine 40 mg capsule 80 mg PO DAILY 90 Days Qty: 180 magnesium oxide 400 mg (241.3 mg magnesium) tablet 800 mg PO DAILY cetirizine 10 mg tablet 10 mg PO DAILY PRN (Reason: Allergic Reaction) cholecalciferol (vitamin D3) 25 mcg (1,000 unit) tablet 25 mcg PO DAILY amlodipine 5 mg tablet 5 mg PO QPM metolazone 2.5 mg tablet 2.5 mg PO QDAY metoprolol succinate 25 mg tablet extended release 24 hr 25 mg PO DAILY Qty: 30 11RF aspirin 81 MG tablet 81 mg PO DAILY@0800 cyanocobalamin (vitamin B-12) 1,000 MCG capsule 1,000 mcg PO DAILY Qty: 0 acetaminophen 325 MG tablet 650 mg PO Q6H PRN (Reason: Pain -02/09) ticagrelor [Brilinta] 90 mg Tablet 90 mg PO BID Qty: 60 11RF furosemide 40 mg Tablet 40 mg PO DAILY Qty: 90 0RF spironolactone 25 mg Tablet 25 mg PO DAILY Qty: 90 0RF insulin lispro [Humalog KwikPen Insulin] 100 unit/mL Insulin Pen See Protocol subcut ACHS Qty: 0 0RF Protocol: 3. Sliding Scale Insulin Med Dosing Condition: 150-189 mg/dl = 1 unit Condition: 190-229 mg/dl = 2 units Condition: 230-269 mg/dl = 3 units Condition: 270-309 mg/dl = 4 units Condition: 310-349 mg/dl = 5 units Condition: 350-399 mg/dl = 6 units Condition: 400-449 mg/dl = 7 units Condition: Greater than 449 call physician Protocol Text: Suggested for: - Patients on Total Daily Insulin Dose of 37-55 units - Obese, infected, or steroid patients MEDIUM DOSING ALGORITHIM ranolazine 500 mg Tablet Extended Release 12 Hr 500 mg PO BID Qty: 180 0RF Jardiance 10 mg Tablet 10 mg PO DAILY Qty: 90 0RF mirtazapine [Remeron] 15 mg tablet 15 mg PO QHS nitroglycerin 0.4 mg tablet, sublingual 0.4 mg SUBLINGUAL Q5-15M PRN (Reason: CHEST PAIN) Qty: 25 3RF atorvastatin 40 mg tablet 40 mg PO QHS Qty: 90 3RF potassium chloride 20 mEq tablet,ER particles/crystals 60 meq PO BID Qty: 180 3RF pantoprazole 40 mg tablet,delayed release (DR/EC) 40 mg PO DAILY Qty: 90 3RF Referrals / Follow Up: Marycarmen Rodriguez DO [Primary Care Provider] - Within 2 Weeks Disposition Disposition (needs filled in before D/C Order can be placed): [facility] 12/08/24 1227 <Electronically signed by Alex Sanon MD> Cosigner Signature (if applicable): CC: Dr. Shaan Santos DO; Dr. Marycarmen Rodriguez DO ~ [facility] Work Phone: Discharge summary Author Marycarmen Marlow [facility] Note Date/Time December 17, 2024 2: 06pm [facility] Medical Records Department [address] [place] [address] Transfer to [facility] MR#: [id number] Acct: [id number] Name: ERIBERTO RICO Rep #:[id number] : 1945 79 From: Marycarmen Marlow DO PCP: Dr. Marycarmen Rodriguez DO Status:ADM IN Certification of patient admission REQUIRED AT TIME OF ADMISSION. I CERTIFY THAT POST-HOSPITAL ECF SERVICES ARE REQUIRED TO BE GIVEN ON AN IN-PATIENT BASIS BECAUSE OF THE ABOVE NAMED PATIENT'S NEED FOR INTERMEDIATE CARE ON A CONTINUING BASIS FOR THE CONDITION(S) FOR WHICH HE/SHE WAS RECEIVING IN-PATIENT HOSPITAL SERVICES PRIOR TO HIS/HER TRANSFER TO THE ECF. 12/17/24 1406<Electronically signed by Marycarmen Marlow DO> Diet Diet Order/Speech Therapy: INPATIENT Hospital Diet / Speech Therapy Order(s) 12/16/24 12:16 Diet: Regular - General Type of Dietary Supplement:: Magic Cup Dessert Fluid restriction:: 1750 mL Routine Orders/Code Status Routine Lab Work: BMP (in 5 days) and - (Fingerstick blood sugars 3 times daily AC-Humalog subcu per sliding scale: 200-250: 5 units, 251-300: 8 units, 301- 350:12 units) Code Status: Full Code DC O2, CPAP, BIPAP needs Home O2 Discharge instructions: No Wound(s) left forearm: Wound Type: Skin Tear Therapies Weight Bearing: Full weight bearing Physical Therapy: Eval and Treat Occupational Therapy: Eval and Treat Problem/Diagnosis (1) Chest pain: Status: Acute Code(s): R07.9 - Chest pain, unspecified (2) Pericardial effusion: Status: Acute Code(s): I31.39 - Other pericardial effusion (noninflammatory) (3) Essential hypertension: Status: Chronic Code(s): I10 - Essential (primary) hypertension (4) CKD (chronic kidney disease) stage 4, GFR 15-29 ml/min: Status: Chronic Code(s): N18.4 - Chronic kidney disease, stage 4 (severe) (5) Central sleep apnea: Status: Acute Code(s): G47.31 - Primary central sleep apnea (6) Diastolic heart failure: Status: Chronic Code(s): I50.30 - Unspecified diastolic (congestive) heart failure Plan 1. Pericarditis-continue colchicine x 3 months, continue beta-jeffrey, statin, Brilinta, aspirin #2 coronary artery disease-continue present medications #3 chronic kidney disease stage IV-complicates care, management, recovery, and prognosis, labs will be monitored as necessary #4 type 2 diabetes-blood sugars will be monitored, sliding scale insulin will beadministered as needed #5 hyponatremia-BMP will be monitored as necessary #6 intermittent nausea and vomiting-etiology unclear at this point, patient has no difficulty swallowing, the nausea/vomiting is transient and sometimes consistof dry heaves, patient will be given antiemetics as needed #7 chronic depression-patient is on Prozac and Remeron #8 generalized weakness secondary to multiple medical problems-patient will return to his care home facility when medically stable #9 acute protein and caloric malnutrition-related to recent myocardial infarction, loss of appetite due to taste disturbances, and inadequate energy intake as evidenced by p.o. intake meeting less than 75% of estimated nutritional needs and approximately 13% unintended weight loss times less than amonth-diet is liberalized to regular, Magic cup with meals for increased nutritional intake, Glucerna shake with med Pass for increased nutrition if consumed Allergies/Procedures Done in Hospital Allergies No Known Allergies Allergy (Verified 12/12/24 10:23) Type of Care/Length of Stay Estimated LOS: Convalescent Care Less Than 30 days Type of Care Needed: Skilled Rehab Potential: Good Prognosis: Good Additional Orders/Day of Discharge H&P will serve as current which was dated: 12/15/24 Day of Discharge: 12/17/24 Dietary and Speech Recommendations Dietitian Recommendations/Changes: Will liberalize diet to Regular d/t signs andsymptoms of malnutrition - rec liberalize FR as medically able Will order magic cup w/ meals for increased nutrition if consumed Will order glucerna shake w/ medpass for increased nutrition if consumed Continue to follow and monitor for changes in pt nutritional status and make additional rec as indicated. Discharge Plan Admission Admit Date/Time: 12/15/24 14:35 Primary Reason for Your Visit: Chest pain due to pericarditis Attending Provider: Marycarmen Marlow Primary Care Provider: Marycarmen Rodriguez Consulting Providers: Sunil Faye; Ramonita Herron Discharge Orders/Prescriptions Prescriptions: New colchicine 0.6 mg Capsule 0.6 mg PO BID 90 Days Qty: 0 0RF Rx Instructions: Take for a total of 90 days then discontinue potassium chloride 10 mEq Tablet,Er Particles/Crystals 30 meq PO BID Qty: 0 0RF Glucerna 1.2 Ashwin 0.06-1.2 gram-kcal/mL Liquid 120 ml PO 4X/DAY Qty: 0 0RF promethazine 12.5 mg tablet 12.5 mg PO Q6H PRN (Reason: nausea and vomiting) Qty: 1 0RF Continued fluoxetine 40 mg capsule 80 mg PO DAILY 90 Days Qty: 180 magnesium oxide 400 mg (241.3 mg magnesium) tablet 800 mg PO DAILY cholecalciferol (vitamin D3) 25 mcg (1,000 unit) tablet 25 mcg PO DAILY cetirizine 10 mg tablet 10 mg PO DAILY amlodipine 5 mg tablet 5 mg PO QPM metoprolol succinate 25 mg tablet extended release 24 hr 25 mg PO DAILY Qty: 30 11RF aspirin 81 MG tablet 81 mg PO DAILY@0800 cyanocobalamin (vitamin B-12) 1,000 MCG capsule 1,000 mcg PO DAILY Qty: 0 acetaminophen 325 MG tablet 650 mg PO Q6H PRN (Reason: Pain -02/09) ticagrelor [Brilinta] 90 mg Tablet 90 mg PO BID Qty: 60 11RF furosemide 40 mg Tablet 40 mg PO DAILY Qty: 90 0RF spironolactone 25 mg Tablet 25 mg PO DAILY Qty: 90 0RF Jardiance 10 mg Tablet 10 mg PO DAILY Qty: 90 0RF mirtazapine [Remeron] 15 mg tablet 15 mg PO QHS nitroglycerin 0.4 mg tablet, sublingual 0.4 mg SUBLINGUAL Q5-15M PRN (Reason: CHEST PAIN) Qty: 25 3RF atorvastatin 40 mg tablet 40 mg PO QHS Qty: 90 3RF pantoprazole 40 mg tablet,delayed release (DR/EC) 40 mg PO DAILY Qty: 90 3RF Discontinued insulin lispro [Humalog KwikPen Insulin] 100 unit/mL Insulin Pen See Protocol subcut ACHS Qty: 0 0RF Protocol: 3. Sliding Scale Insulin Med Dosing Condition: 150-189 mg/dl = 1 unit Condition: 190-229 mg/dl = 2 units Condition: 230-269 mg/dl = 3 units Condition: 270-309 mg/dl = 4 units Condition: 310-349 mg/dl = 5 units Condition: 350-399 mg/dl = 6 units Condition: 400-449 mg/dl = 7 units Condition: Greater than 449 call physician Protocol Text: Suggested for: - Patients on Total Daily Insulin Dose of 37-55 units - Obese, infected, or steroid patients MEDIUM DOSING ALGORITHIM ranolazine 500 mg Tablet Extended Release 12 Hr 500 mg PO BID Qty: 180 0RF metolazone 2.5 mg tablet 2.5 mg PO .PRN No Action potassium chloride 20 mEq tablet,ER particles/crystals 60 meq PO BID Qty: 180 3RF Referrals / Follow Up: Marycarmen Rodriguez DO [Primary Care Provider] - Gustabo Pérez NP, [employer] [Med Staff - Adv Practice Prof] - See Referral Note (In 3 to 4 weeks) Disposition Disposition (needs filled in before D/C Order can be placed): [facility] (6) Diastolic heart failure Qualifiers: Heart failure chronicity: chronic Qualified Code(s): I50.32 - Chronic diastolic (congestive) heart failure 12/17/24 1406 <Electronically signed by Marycarmen Marlow DO> Cosigner Signature (if applicable): CC: Dr. Marycarmen Rodriguez DO; Dr. Ramonita Herron MD; Dr. Sunil Faye MD ~ [facility] Work Phone: Evaluation note* Diagnosis Shortness of breath- Primary documented in this encounter [facility] note* Diagnosis DEAN (dyspnea on exertion)- Primary Other dyspnea and respiratory abnormality [facility] Diagnosis DEAN (dyspnea on exertion) Other dyspnea and respiratory abnormality Essential hypertension Unspecified essential hypertension Type 2 diabetes mellitus without complication, without long-term current use of insulin ([facility]) MATTHEW (obstructive sleep apnea) Obstructive sleep apnea (adult) (pediatric) Coronary artery disease involving [place] coronary artery of [place] heart without angina pectoris [facility]* Diagnosis Shortness of breath [facility]* Diagnosis Essential hypertension- Primary Unspecified essential hypertension Atherosclerosis of [place] coronary artery with angina pectoris, unspecified whether [place] or transplanted heart (HCC) Mixed hyper[facility] Diagnosis Chest pain, unspecified type- [facility] Diagnosis Coronary artery disease involving [place] coronary artery of [place] heart with angina pectoris (HCC)- Primary [facility]* Diagnosis Onset Date Resolution Status Dizziness acute Atherosclerotic heart diseas e [place] coronary artery w/angina pectoris chronic CHF (congestive heart failure) chronic Essential hypertension chron ic History of coronary artery stent placement August 13, 2017 chronic Hyperlipidemia [facility] Work Phone: Evaluation note* Diagnosis Onset Date Resolution Status Dizziness acute Atherosclerotic heart diseas e [place] coronary artery w/angina pectoris chronic CHF (congestive heart failure) chronic Essential hypertension chron ic History of coronary artery stent placement August 13, 2017 chronic Hyperlipidemia chronic Dizziness acute DEAN (dyspnea on exertion) ac [place] Palpitations acute CAD (coronary artery disease) chronic CHF (congestive heart failure) chronic Essential hypertension chron ic Hyperlipidemia [facility] Work Phone: Evaluation note* Diagnosis Onset Date Resolution Status Dizziness acute Atherosclerotic heart diseas e [place] coronary artery w/angina pectoris chronic CHF (congestive heart failure) chronic Essential hypertension chron ic History of coronary artery stent placement August 13, 2017 chronic Hyperlipidemia chronic Dizziness acute DEAN (dyspnea on exertion) ac [place] Palpitations acute CAD (coronary artery disease) chronic CHF (congestive heart failure) chronic Essential hypertension chron ic Hyperlipidemia chronic DEAN (dyspnea on exertion) ac [place] CAD (coronary artery disease) chronic CHF (congestive heart failure) chronic Essential hypertension chron ic Hyperlipidemia [facility] Work Phone: Evaluation note* Diagnosis Onset Date Resolution Status Dizziness acute DEAN (dyspnea on exertion) ac [place] Palpitations acute CAD (coronary artery disease) chronic CHF (congestive heart failure) chronic Essential hypertension chron ic Hyperlipidemia chronic DEAN (dyspnea on exertion) ac [place] CAD (coronary artery disease) chronic CHF (congestive heart failure) chronic Essential hypertension chron ic Hyperlipidemia [facility] Work Phone: Evaluation note* Diagnosis Onset Date Resolution Status Abnormal PFT acute 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.9) 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 COVID-19 acute DEAN (dyspnea on exertion) ac [place] Atherosclerotic heart diseas e [place] coronary artery w/angina pectoris chronic CHF (congestive heart failure) chronic Essential hypertension chron ic History of coronary artery stent placement August 13, 2017 chronic Hyperlipidemia chronic Abnormal PFT acute COVID-19 acute 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.9) 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 [facility] Work Phone: Evaluation note* Diagnosis Onset Date Resolution Status COVID-19 acute DEAN (dyspnea on exertion) [place] Atherosclerotic heart diseas e [place] coronary artery w/angina pectoris chronic CHF (congestive heart failure) chronic Essential hypertension chron ic History of coronary artery stent placement August 13, 2017 chronic Hyperlipidemia chronic Abnormal PFT acute COVID-19 acute 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.9) 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 [facility] Work Phone: Evaluation note* Diagnosis Onset Date Resolution Status Angina pectoris chronic Chronic kidney disease chron ic 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 Diabetes mellitus chronic Dyslipidemia chronic Essential hypertension chron ic Obesity chronic [facility] Work Phone: Evaluation note* Diagnosis Onset Date Resolution Status Angina pectoris chronic Chronic kidney disease chron ic 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 Diabetes mellitus chronic Dyslipidemia chronic Essential hypertension chron ic Obesity chronic Left-sided weakness acute Chest pain resolved Fatigue acute Syncope acute 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 Dyslipidemia chronic Essential hypertension chron ic [facility] Work Phone: Evaluation note* Diagnosis Onset Date Resolution Status Left-sided weakness acute Chest pain resolved Fatigue acute Syncope acute 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 Dyslipidemia chronic Essential hypertension chron ic Angina pectoris chronic Bilateral lower extremity edema chronic Chronic kidney disease, stage 3 chronic 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 Essential hypertension chron ic Hyperlipidemia chronic Type 2 diabetes mellitus without complications [facility] Work Phone: Evaluation noteNo assessment information available [facility] Work Phone: History and physical note Author Shaan Santos [facility] Note Date/Time December 07, 2024 4:4 8pm [facility] Medical Records Department [address] [place] [address] H&P Exam - Hospitalist 12/07/24 1633 MR#: [id number] Acct: [id number] Name: ERIBERTO RICO Rep #:[id number] : 1945 79 From: Shaan Santos DO PCP: Dr. Marycarmen Rodriguez, DO Status:ADM EDMUND Location: [place] [address] HPI - General General Date of Service: 12/07/24 HPI Narrative ERIBERTO RICO, is a 79 M who presents with shortness of breath. This is a 79-year-old male who was admitted on November 30 with a STEMI. Patient had had an inferior STEMI. Patient underwent a left heart catheterization that showed a subacute stent thrombosis of the proximal RCA that underwent angioplasty. Patient had been on clopidogrel but was started on ticagrelor. He developed AKIand his ARB was discontinued. Patient developed acute onset of facial paresthesias and a stroke team was called. Patient underwent stroke workup including MRI and MRA that were negative. Neurology felt as a stress response related to cardiac event and not TIA or nor stroke. Patient was discharged thenon the second. He came back later that dayWith chest pain again concerning for a STEMI alert. He underwent a left heart catheterization that showed patent vessels and cardiology recommended continuing dual platelet therapy, high intensity statins, beta-jeffrey and nitrates. Patient was to be continued on furosemide as well as empagliflozin. And patient was discharged on the 6. Patient came back today with shortness of breath. Patient underwent a workup that showed no acute process but his D-dimer was elevated at 1.61. Given his CKD, a CTA of his chest could not be safely performed without compromising his kidney function further. He did have troponins that were elevated at 7122 and subsequently down to 6442. This is actually an improvement where his troponins back on the second were greater than 10,000. He is not experiencing any chest pain at this time. He denies any lower extremity edema. He is currently on room air and breathing comfortably. FORMERLY [facility], [facility] Medical History Anxiety Depression Diabetes Kidney disease Former smoker Atrial fibrillation Myocardial infarct Coronary artery disease Hypertension TIA (transient ischemic attack) Anemia Shortness of breath Unstable angina Fatigue Syncope [...] TIA (transient ischemic attack) Obstructive sleep apnea Atherosclerotic heart disease [place] coronary artery w/angina pectoris Type 2 diabetes [...] Q6H PRN Pain 1-1 10/12/23 Unknown History atorvastatin 40 mg tablet 40 mg PO QHS CHOLESTEROL #90 tabs 06/14/24 Unknown Rx nitroglycerin 0.4 mg sublingual 0.4 mg sublingual Q5-1 5M PRN CHEST 06/14/24 Unknown Rx tablet PAIN #25 tabs pantoprazole 40 mg tablet,delayed 40 mg PO DAILY GERD #90 tabs 06/14/24 Unknown Rx release potassium chloride 20 mEq 60 meq (3 x 20 mEq) PO BID 0 06/14/24 Unknown Rx tablet,extended release(part/cryst) supplement #180 ta bs amlodipine 5 mg tablet 5 mg PO QPM blood pressure 0 10/25/24 Unknown History metolazone 2.5 mg tablet 2.5 mg PO QDAY diuretic 10/02 09/24 Unknown History metoprolol succinate 25 mg 25 mg PO DAILY blood pressu re #30 10/25/24 Unknown Rx tablet,extended release 24 hr tabs ticagrelor 90 mg tablet (Brilinta) 90 mg PO BID #60 ta bs 12/02/24 Unknown Rx empagliflozin 10 mg tablet 10 mg PO DAILY #90 tabs 10/25 Unknown Rx (Jardiance) furosemide 40 mg tablet 40 mg PO DAILY #90 tabs 10/25 Unknown Rx insulin lispro 100 unit/mL See Protocol subcut ACHS #0 mL 12/06/24 Unknown Rx subcutaneous pen (Humalog KwikPen (U-100) Insulin) ranolazine 500 mg tablet,extended 500 mg PO BID #180 t abs 12/06/24 Unknown Rx release,12 hr spironolactone 25 mg tablet 25 mg PO DAILY #90 tabs Unknown Rx Allergy/AdvReac Type Severity Reaction Status Date / Time No Known Allergies Allergy Verified 12/07/24 10:57 Family History Father Parkinsons disease Prostate cancer Mother Osteoporosis Surgical History Presence of coronary angioplasty implant and graft (11/27/24) History of tympanostomy tube placement History of percutaneous transluminal coronary angioplasty (08/18/18) History of herniorrhaphy Hx of cholecystectomy History of tonsillectomy History of prostatectomy Social History household members: spouse and none housing: senior care Smoking Status: Former smoker quit date: 05/03/98 pack-years: 50 how long ago did patient quit smokin years ago alcohol intake: never substance use type: does not use caffeine: Yes Type: coffee and tea Number of servings: 6 ROS ROS Narrative All review of systems were negative except as mentioned above in the history of present illness and the other review of systems. Vital Signs Vital Signs Vital Signs: 12/07/24 10:52 08/07/25 11:05 12/07/24 12:00 Temperature 36.8 C Temperature Source Oral Pulse Rate 85 74 Respiratory Rate 24 H 17 Blood Pressure 138/88 H 121/89 H Blood Pressure Mean 104 99 Pulse Ox 99 99 97 Oxygen Delivery Method Nasal Cannula Nasal Cannula Oxygen Flow Rate (L/min) 2 12/07/24 12:20 12/07/24 12:58 12/07/24 14:29 Temperature Temperature Source Pulse Rate 73 73 Respiratory Rate 16 Blood Pressure 129/92 H 128/95 H 114/61 Blood Pressure Mean 106 78 Pulse Ox 98 Oxygen Delivery Method Oxygen Flow Rate (L/min) 12/07/24 14:29 12/07/24 15:00 12/07/24 15:13 Temperature 36.8 C 36.8 C Temperature Source Pulse Rate 22 L 22 L Respiratory Rate 22 H 22 H Blood Pressure 114/61 132/93 H 114/61 Blood Pressure Mean 78 106 78 Pulse Ox 99 97 99 Oxygen Delivery Method Oxygen Flow Rate (L/min) 12/07/24 16:00 Temperature Temperature Source Pulse Rate Respiratory Rate Blood Pressure Blood Pressure Mean Pulse Ox 97 Oxygen Delivery Method Oxygen Flow Rate (L/min) Weight Weight: 102.603 kg Body Mass Index (BMI) 33.4 Physical Exam Narrative POCUS: Indication is for shortness of breath. Using the emergency room POCUS machine (which does not include a phased-array probe). Use curvilinear via fastprotocol, is liver was visualized and his IVC was difficult to over the visualized but from what I could tell did appear to be collapsible with respirations. Doing the pulmonary windows, patient did have some small pleural effusion on his right base as well as some B-lines noted in the right base. Butotherwise no fluid visualized elsewhere. And doing a bedside DVT scan showed that his is deep venous system was collapsible from his groin through his calf bilaterally and no DVT was visualized. Const alert and no apparent distress Constitutional Narrative: No respiratory distress. No conversational dyspnea. Cooperative. Able to sit up on his own. HEENT normocephalic and head/scalp atraumatic Resp normal respiratory effort, no retractions, no use of accessory muscles and clearto auscultation bilaterally Cardio regular rate, regular rhythm, S1 normal heart sound and S2 normal heart sound GI normal to inspection, nondistended, normoactive bowel sounds, soft to palpation,non-tender and non-distended Extremity normal to inspection and full ROM Extremity Narrative: No calf tenderness Neuro Sensorium / Orientation: awake and alert Psych affect normal Results Lab / Micro Data 12/07/24 11:04 12/07/24 11:04 Labs: Laboratory Results - last 24 hr 12/07/24 11:04: WBC 11.9 H, RBC 4.54 L, Hgb 13.3, Hct 39.1 L, MCV 86.1, MCH 29.3, MCHC 34.0, RDW Std Deviation 41.4, RDW Coeff of Adrian 13.4, Plt Count 190, MPV 13.0 H, Immature Gran % (Auto) 0.700, Neut % (Auto) 79.0 H, Lymph % (Auto) 7.9 L, Curry % (Auto) 11.5 H, Eos % (Auto) 0.6, Baso % (Auto) 0.3, Absolute Neuts(auto) 9.4 H, Absolute Lymphs (auto) 0.94, Nucleated RBC % 0, D-Dimer Quant (PE/DVT) 1.61 H*, Sodium 132 L, Potassium 4.1, Chloride 94 L, Carbon Dioxide 20.9 L, Anion Gap 18 H, BUN 40 H, Creatinine 2.76 H, Estim Creat Clear Calc 25.62 L, Est GFR (MDRD) Non- Af 23 L, BUN/Creatinine Ratio 14.5, Glucose 209 H, Calcium 9.5, Magnesium 2.4 H, Troponin T High Sens 7122 H* D, NT pro BNP II 2037H 12/07/24 13:00: Troponin T Hi Sens 2 Hr 6442 H* Imaging Radiology Impression Chest X-Ray 12/07/24 10:59 IMPRESSION: No acute cardiopulmonary process Reading Location: [id number] Assessment & Plan Assessment/Plan (1) Shortness of breath: PLAN: Transient. His exam is unremarkable. Bedside POCUS evaluation of his venous system of the lower extremities does not reveal any DVTs. This however does not rule out an acute PE. His D-dimer is elevated but that could be related with PE but may also be his normal. No prior D-dimer was ordered to compare to. And given his CKD, we cannot safely do a CT angiogram. Therefore patient will have a VQ scan. If his VQ scan is negative then I feel that he canbe discharged. My suspicion for this being PE is rather low but will perform the VQ scan to further evaluate. No other clinical evidence to suggest an etiology of his shortness of breath at this time but he does feel better. PLAN: Plan CAD: Status post recent STEMI. Continue with ticagrelor, aspirin, atorvastatin,ranolazine HFpEF: Compensated this time. Continue with furosemide, spironolactone, empagliflozin, metoprolol succinate. Not a candidate for JOSEOL inhibitor/angiotensin receptor jeffrey given CKD. DM2: Continue with sliding scale insulin. Depression: Continue with fluoxetine Insomnia: Continue with Remeron VTE prophylaxis: Low risk given current observation status. CODE STATUS: Verified with the patient. Patient wishes to be full code Case discussed with the patient's daughter at bedside. Charges/Coding Visit Charges Inpatient E&M: 45131 Init Hosp L3 12/07/24 1648 <Electronically signed by Shaan Santos DO> Cosigner Signature (if applicable): CC: Dr. Shaan Santos DO; Dr. Marycarmen Rodriguez DO~ Signed [facility] Work Phone: Hospital Discharge instructionsAmbulatory Orders* Phase II, Outpatient Cardiac Rehab Location: None [facility] Work Phone: Hospital Discharge instructionsAdditional Instructions The chief legal officer wanted to make sure you are taking isosorbide, spironolactone, Lasix and Jardiance. Follow-up with the cardiology office.[facility] Work Phone: Progress note Author Dr. Hay [facility] September 01, 2022 9:53am Note Date/Time September 01, 2022 9:51am [facility] Medical Records Department [address] [place] [address] Progress Note 09/01/22 0950 MR#: [id number] Acct: [id number] Name: ERIBERTO RICO Rep #:[id number] : 1945 77 From: Jose Hay MD PCP: Dr. Marycarmen Jennifer, DO Status:ADM EDMUND Location: [place] [address] Progress Note Reports complete resolution of angina. [...] (if applicable): CC: ~ Signed [facility] Work Phone: Reason for referral (narrative)No reason for referral information availableWSelect Medical [facility] Work Phone: Assessments Diagnosis MATTHEW (obstructive sleep apnea ) - Primary Obstructive sleep apnea (adult) (pediatric) Coronary artery disease invo lving [place] coronary artery of [place] heart without angina pectoris Summary Purpose Family [...] FoundDocuments on File Type Date Recorded Patient Box Loader Expl anation Advance Directives and Living Will [...] Documents on File Type Date Recorded Patient Box Loader Expl anation Advance Directives and Livin g Will 10/04/2020 12:00 AM Documents on File Type Date Recorded Patient Box Loader Expl anation Advance Directives and Living Will [...] Documents on File Type Date Recorded Patient Box Loader Expl anation Advance Directives and Livin g Will 10/15/2020 12:46 PM Documents on File Type Date Recorded Patient Box Loader Expl anation Advance Directives and Livin g Will 10/15/2020 12:46 PM Documents on File Type Date Recorded Patient Box Loader Expl anation Advance Directives and Livin g [...] Will Yes June 10 4:44pm Power of Core Placer Yes June 10, 2021 4:44pm Advance Directive Response Recorded Date/ Time Name of Medical Power of Core Placer Jennie- November 16, 2021 1:06pm Advance Directives No August 13 018 7:02am Living Will Yes November 16, 2021 1:06pm Power of Core Placer Yes November 16 1:06pm Advance Directive Response Recorded Date/ Time Advance Directives No August 13 018 6:02am Living Will Yes November 16, 2021 12:06pm Power of Core Placer Yes November 16 12:06pm Advance Directive Response Recorded Date/ Time Advance Directives No Manisha 13th, 2 018 7:02am Living Will Yes November 16, 2021 1:06pm Power of Core Placer Yes November 16 1:06pm Advance Directive Response Recorded Date/ Time Advance Directives on File Yes August 312022 7:47am Name of Medical Power of Core Placer Mike Rico- jw August 31, 2022 7:47am Advance Directives Yes August 31, 2022 7:47am Living Will Yes August 31, 2022 7: 47am Power of Core Placer Yes August 31, 2022 7:47am Advance Directive Response Recorded Date/ Time Advance Directives on File Yes August 312022 7:47am Name of Medical Power of Core Placer Mike Rico- son August 31, 2022 7:47am Advance Directives Yes August 31, 2022 7:47am Living Will No September 18, 2022 2:11am Power of Core Placer No September 18, 2022 12:11am Advance Directive Response Recorded Date/ Time Advance Directives on File Yes August 312022 7:47am Name of Medical Power of Core Placer Mike escalera August 31, 2022 7:47am Advance Directives on File No Augus t 2022 7:51am Name of Medical Power of Core Placer MIKE RICO December 21, 2022 7:51am Advance Directives Yes December 21, 2022 7:51am Living Will Yes December 21 7:51am Power of Core Placer Yes December 21 023 7:51am Advance Directive Response Recorded Date/ Time Advance Directives on File No Augus t 2022 7:51am Name of Medical Power of Core Placer MIKE RICO December 21, 2022 7:51am Advance Directives Yes December 21, 2022 7:51am Living Will Yes December 21 7:51am Power of Core Placer Yes December 21 023 7:51am Advance Directive Response Recorded Date/ Time Advance Directives Yes December 21, 2022 6:51am Living Will Yes December 21 6:51am Power of Core Placer Yes December 21 023 6:51am Advance Directive Response Recorded Date/ Time Living Will No October 12, 2023 6:54pm Power of Core Placer No October 11 6:54pm Advance Directives Yes December 21, 2022 7:51am Advance Directive Response Recorded Date/ Time Advance Directives Yes December 21, 2022 7:51am Advance Directive Response Recorded Date/ Time Do you have a Healthcare Power of Core Placer? Yes November 26, 2024 5:44pm Advance Directives Yes December 21, 2022 7:51am Advance Directive Response Recorded Date/ Time Advance Directives on File Yes November 27, 2024 8:44am Living Will Yes November 27, 2024 8:44am Do you have a Healthcare Pow er of Core Placer? Yes November 27, 2024 8:44am Name of Medical Power of Core Placer Jennie Bodag er- spouse November 27, 2024 8:44am Advance Directives Yes November 27 8:44am Do you have a Healthcare Pow er of Core Placer? Yes November 26, 2024 5:44pm Advance Directive Response Recorded Date/ Time Advance Directives on File Yes November 27, 2024 8:44am Living Will Yes November 27, 2024 8:44am Do you have a Healthcare Pow er of Core Placer? Yes November 27, 2024 8:44am Name of Medical Power of Core Placer Jennie Bodag er- spouse November 27, 2024 8:44am Advance Directives Yes November 27 8:44am Do you have a Healthcare Pow er of Core Placer? Yes November 26, 2024 5:44pm Do you have a Healthcare Pow er of Core Placer? Yes November 30, 2024 5:22pm Advance Directive Response Recorded Date/ Time Advance Directives on File Yes November 27, 2024 8:44am Living Will Yes November 27, 2024 8:44am Do you have a Healthcare Pow er of Core Placer? Yes November 27, 2024 8:44am Name of Medical Power of Core Placer Jennie Bodag er- spouse November 27, 2024 8:44am Advance Directives Yes November 27 8:44am Do you have a Healthcare Pow er of Core Placer? Yes November 26, 2024 5:44pm Do you have a Healthcare Pow er of Core Placer? Yes November 30, 2024 5:22pm Do you have a Healthcare Pow er of Core Placer? Yes December 02, 2024 8:23pm Advance Directive Response Recorded Date/ Time Advance Directives on File Yes November 27, 2024 8:44am Living Will Yes November 27, 2024 8:44am Do you have a Healthcare Pow er of Core Placer? Yes November 27, 2024 8:44am Name of Medical Power of Core Placer Jennie Agarwal er- spouse November 27, 2024 8:44am Advance Directives Yes November 27 8:44am Do you have a Healthcare Pow er of Core Placer? Yes November 26, 2024 5:44pm Do you have a Healthcare Pow er of Core Placer? Yes November 30, 2024 5:22pm Do you have a Healthcare Pow er of Core Placer? Yes December 02, 2024 9:54pm Advance Directive Response Recorded Date/ Time Advance Directives on File Yes November 27, 2024 8:44am Living Will Yes November 27, 2024 8:44am Do you have a Healthcare Pow er of Core Placer? Yes November 27, 2024 8:44am Name of Medical Power of Core Placer Jennie Agarwal er- spouse November 27, 2024 8:44am Advance Directives Yes November 27 8:44am Do you have a Healthcare Pow er of Core Placer? Yes November 26, 2024 5:44pm Do you have a Healthcare Pow er of Core Placer? Yes November 30, 2024 5:22pm Do you have a Healthcare Pow er of Core Placer? Yes December 02, 2024 9:54pm Do you have a Healthcare Pow er of Core Placer? Yes December 07, 2024 11:09am Advance Directive Response Recorded Date/ Time Advance Directives on File Yes November 27, 2024 8:44am Living Will Yes November 27, 2024 8:44am Do you have a Healthcare Pow er of Core Placer? Yes November 27, 2024 8:44am Name of Medical Power of Core Placer Jennie Agarwal er- spouse November 27, 2024 8:44am Advance Directives Yes November 27 8:44am Do you have a Healthcare Pow er of Core Placer? Yes November 26, 2024 5:44pm Do you have a Healthcare Pow er of Core Placer? Yes November 30, 2024 5:22pm Do you have a Healthcare Pow er of Core Placer? Yes December 02, 2024 9:54pm Do you have a Healthcare Pow er of Core Placer? Yes December 07, 2024 5:33pm Advance Directive Response Recorded Date/ Time Advance Directives on File Yes November 27, 2024 8:44am Living Will Yes November 27, 2024 8:44am Do you have a Healthcare Pow er of Core Placer? Yes November 27, 2024 8:44am Name of Medical Power of Core Placer Jennie Agarwal er- spouse November 27, 2024 8:44am Advance Directives Yes November 27 8:44am Do you have a Healthcare Pow er of Core Placer? Yes December 15, 2024 3:01pm Do you have a Healthcare Pow er of Core Placer? Yes November 26, 2024 5:44pm Do you have a Healthcare Pow er of Core Placer? Yes November 30, 2024 5:22pm Do you have a Healthcare Pow er of Core Placer? Yes December 02, 2024 9:54pm Do you have a Healthcare Pow er of Core Placer? Yes December 07, 2024 5:33pm Reason for Referral Status Reason Specialty Diagnoses / Procedures Referred By Contact Referred To Contact New Request Cardiology Diagnoses Shortness of breath Procedures Echocardiogram complete Eladio Ingram MD [address] [facility] [address] [place] [address] Status Reason Specialty Diagnoses / Procedures Referred By Contact Referred To Contact Closed Cardiology Diagnoses DEAN (dyspnea on exertion) Procedures ECG 12 lead Fernanda Acuña, [employer]ROL INSPECTOR [address] [place] [address] Specialty Diagnoses / Procedures Referred By Contac t Referred To Contact Radiology Diagnoses Coronary artery disease involving [place] coronary artery of [place] heart with angina pectoris (HCC) Procedures CT Angiogram Aorta Chest Abdomen Pelvis Eladio Ingram MD [address] [facility] [address] [place] [address] Referral ID Status Reason Start Date Expiration Date V isits Requested Visits Authorized [id number] New Request 01/10/2021 01/10/2022 1 1 Chief Complaint and Reason for Visit Chief Complaint R. LOWER LID LESION RLQ ABD PAIN bleeding from ear, chest pain OVERDUE FOR OV CHEST PAIN CHEST PAIN Reason for Visit Dizziness Atherosclerotic heart disease [place] coronary artery w/angina pectoris CHF (congestive heart failure) Essential hypertension History of coronary artery stent placement Hyperlipidemia Chief Complaint bleeding from ear, c hest pain OVERDUE FOR OV CHEST PAIN CHEST PAIN 6-8 WK F/U DYSPNEA Reason for Visit Dizziness Atherosclerotic heart disease [place] coronary artery w/angina pectoris CHF (congestive heart failure) Essential hypertension History of coronary artery stent placement Hyperlipidemia Dizziness DEAN (dyspnea on exertion) Palpitations CAD (coronary artery disease) CHF (congestive heart failure) Essential hypertension Hyperlipidemia Chief Complaint OVERDUE FOR OV CHEST PAIN CHEST PAIN 6-8 WK F/U DYSPNEA Reason for Visit Dizziness Atherosclerotic heart disease [place] coronary artery w/angina pectoris CHF (congestive heart failure) Essential hypertension History of coronary artery stent placement Hyperlipidemia Dizziness DEAN (dyspnea on exertion) Palpitations CAD (coronary artery disease) CHF (congestive heart failure) Essential hypertension Hyperlipidemia Chief Complaint OVERDUE FOR OV CHEST PAIN CHEST PAIN 6-8 WK F/U DYSPNEA CHEST PAIN 2 M FU E ORDERS Reason for Visit Dizziness Atherosclerotic heart disease [place] coronary artery w/angina pectoris CHF (congestive heart [...] DEAN (dyspnea on exertion) Atherosclerotic heart disease [place] coronary artery w/angina pectoris CHF (congestive heart failure) Essential hypertension History of coronary artery stent placement Hyperlipidemia Abnormal PFT COVID-19 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.9) Obstructive sleep apnea Chief Complaint SORE THROAT, COUGH, FEVER, BODY ACHE 5 MO F/U 3 M FU DYSPNEA/SOB Reason for Visit COVID-19 DEAN (dyspnea on exertion) Atherosclerotic heart disease [place] coronary artery w/angina pectoris CHF (congestive heart [...] CP CVA, CP CVA, CP request by [facility] at [facility] for angina L.L. E-ORDER SYNCOPE Reason for Visit Angina pectoris Chronic kidney disease Coronary artery disease Diabetes mellitus Dyslipidemia Essential hypertension Obesity Left-sided weakness Chest pain Fatigue Syncope Coronary artery disease Dyslipidemia Essential hypertension Chief Complaint CAD Amb Documentation EKG Coronary artery disease Amb Documentation CVA, CP CVA, CP CP ADMIT CVA, CP CVA, CP CVA, CP CVA, CP request by [facility]AL at [facility] for angina L.L. E-ORDER SYNCOPE 2 M [...] CP CVA, CP CVA, CP request by [facility]AL at [facility] for angina L.L. E-ORDER SYNCOPE 2 M [...] FU April 17, 2024 3:51pm F/U per [facility] July 03, 2024 1:10 pm MATTHEW, 42 [...] 2am Chief Complaint Admit Date F/U per [facility] July 03, 2024 1:10 pm MATTHEW, 42 [...] pm Chief Complaint Admit Date F/U per [facility] July 03, 2024 1:10 pm MATTHEW, 42 [...] Obstructive sleep apnea December 02, 2024 8:29pm Chief Complaint Admit Date 3 M FU [...] 2024 4:42 pm STEMI November 30, 2024 4:58 pm STEMI November 30, 2024 5:05 pm STEMI December 01, 2024 7:1 3am STEMI December 01, 2024 7:3 4am STEMI December 02, 2024 1:3 6pm STEMI December 02, 2024 9:3 4pm STEMI December 03, 2024 2:0 1am STEMI December 03, 2024 12: 41pm STEMI December 03, 2024 3:4 8pm STEMI December 04, 2024 7:2 5am STEMI December 04, 2024 10: 57am STEMI December 05, 2024 7:4 5am Reason for Visit Admit Date COPD (chronic obstructive pulmonary dise ase) September 20, 2024 10:13am Diastolic heart failure September 20, 2024 1 0:13am Obesity September 20, 2024 10:13 am Obstructive sleep apnea September 20, 2024 1 0:13am Shortness of breath October 25, 2024 7:54 am Bilateral lower extremity edema October 7:54am Hyperlipidemia October 25, 2024 7:54 am Obesity October 25, 2024 7:54 am Type 2 diabetes mellitus without complic ations October 25, 2024 7:54am Chest pain October 25, 2024 7:54 am Coronary artery disease October 25, 2024 7:54am Essential hypertension October 25, 2024 7 :54am Chronic kidney disease, stage 3 October 7:54am Asthma October 31, 2024 10:00 am [...] 3am Bilateral lower extremity edema October 10:53am Hyperlipidemia November 22, 2024 10:5 3am Obesity November 22, 2024 10:5 3am Type 2 diabetes mellitus without complic ations November 22, 2024 10:53am Chest pain November 22, 2024 10:5 3am Essential hypertension November 22, 2024 1 0:53am Chronic kidney disease, stage 3 October 10:53am Acute kidney injury superimp osed on stage 4 chronic kidney disease November 30, 2024 4:58pm Leukocytosis November 30, 2024 4:58 pm Chest pain November 30, 2024 4:58 pm STEMI (ST elevation myocardial infarctio n) November 30, 2024 4:58pm Chronic kidney disease November 30, 2024 4 :58pm Coronary artery disease November 30, 2024 4:58pm Diabetes mellitus November 30, 2024 4:58 pm Dyslipidemia November 30, 2024 4:58 pm Essential hypertension November 30, 2024 4 :58pm Chronic kidney disease, stage 3 October 4:58pm Acute ST elevation myocardia l infarction (STEMI) of inferior wall December 03, 2024 2:01am Coronary artery vasospasm December 03 2:01am History of acute inferior wall ND December 03, 2024 2:01am Hyponatremia December 03, 2024 2:0 1am Leukocytosis December 03, 2024 2:0 1am Nonsustained monomorphic ventricular tac hycardia December 03, 2024 2:01am Obesity (BMI 30-39.9) December 03, 2024 2 :01am CHF (congestive heart failure) December 2:01am CKD (chronic kidney disease) stage 4, GF R 15-29 ml/min December 03, 2024 2:01am Hyperlipidemia December 03, 2024 2:0 1am Obesity December 03, 2024 2:0 1am Obstructive sleep apnea December 03, 2024 2:01am STEMI (ST elevation myocardial infarctio n) December 03, 2024 2:01am Chronic kidney disease December 03, 2024 2:01am Coronary artery disease December 03, 2024 2:01am Diabetes mellitus December 03, 2024 2:0 1am Dyslipidemia December 03, 2024 2:0 1am Chief Complaint Admit Date 3 M FU [...] 2024 4:42 pm STEMI November 30, 2024 4:58 pm STEMI November 30, 2024 5:05 pm STEMI December 01, 2024 7:1 3am STEMI December 01, 2024 7:3 4am STEMI December 02, 2024 1:3 6pm STEMI December 02, 2024 9:3 4pm STEMI December 03, 2024 2:0 1am STEMI December 03, 2024 12: 41pm STEMI December 03, 2024 3:4 8pm STEMI December 04, 2024 7:2 5am STEMI December 04, 2024 10: 57am STEMI December 05, 2024 7:4 5am STEMI December 05, 2024 10: 19am STEMI December 06, 2024 7:4 7am STEMI December 06, 2024 8:3 8am Chief Complaint Admit Date 3 M FU [...] 2024 4:42 pm STEMI November 30, 2024 4:58 pm STEMI November 30, 2024 5:05 pm STEMI December 01, 2024 7:1 3am STEMI December 01, 2024 7:3 4am STEMI December 02, 2024 1:3 6pm STEMI December 02, 2024 9:3 4pm STEMI December 03, 2024 2:0 1am STEMI December 03, 2024 12: 41pm STEMI December 03, 2024 3:4 8pm STEMI December 04, 2024 7:2 5am STEMI December 04, 2024 10: 57am STEMI December 05, 2024 7:4 5am STEMI December 05, 2024 10: 19am STEMI December 06, 2024 7:4 7am STEMI December 06, 2024 8:3 8am 48 HR HM/EORDER COMING December 06, 2024 2:57pm Chief Complaint Admit Date 3 M FU [...] 2024 4:42 pm STEMI November 30, 2024 4:58 pm STEMI November 30, 2024 5:05 pm STEMI December 01, 2024 7:1 3am STEMI December 01, 2024 7:3 4am STEMI December 02, 2024 1:3 6pm STEMI December 02, 2024 9:3 4pm STEMI December 03, 2024 2:0 1am STEMI December 03, 2024 12: 41pm STEMI December 03, 2024 3:4 8pm STEMI December 04, 2024 7:2 5am STEMI December 04, 2024 10: 57am STEMI December 05, 2024 7:4 5am STEMI December 05, 2024 10: 19am STEMI December 06, 2024 7:4 7am STEMI December 06, 2024 8:3 8am 48 HR HM/EORDER COMING December 06, 2024 2:57pm SHORTNESS OF BREATH. December 07, 2024 4: 24pm SHORTNESS OF BREATH. December 07, 2024 4: 33pm Reason for Visit Admit Date COPD (chronic obstructive pulmonary dise ase) September 20, 2024 10:13am Diastolic heart failure September 20, 2024 1 0:13am Obesity September 20, 2024 10:13 am Obstructive sleep apnea September 20, 2024 1 0:13am Shortness of breath October 25, 2024 7:54 am Bilateral lower extremity edema October 7:54am Hyperlipidemia October 25, 2024 7:54 am Obesity October 25, 2024 7:54 am Type 2 diabetes mellitus without complic ations October 25, 2024 7:54am Chest pain October 25, 2024 7:54 am Coronary artery disease October 25, 2024 7:54am Essential hypertension October 25, 2024 7 :54am Chronic kidney disease, stage 3 October 7:54am Asthma October 31, 2024 10:00 am [...] 3am Bilateral lower extremity edema October 10:53am Hyperlipidemia November 22, 2024 10:5 3am Obesity November 22, 2024 10:5 3am Type 2 diabetes mellitus without complic ations November 22, 2024 10:53am Chest pain November 22, 2024 10:5 3am Essential hypertension November 22, 2024 1 0:53am Chronic kidney disease, stage 3 October 10:53am Acute kidney injury superimp osed on stage 4 chronic kidney disease November 30, 2024 4:58pm Leukocytosis November 30, 2024 4:58 pm Chest pain November 30, 2024 4:58 pm STEMI (ST elevation myocardial infarctio n) November 30, 2024 4:58pm Chronic kidney disease November 30, 2024 4 :58pm Coronary artery disease November 30, 2024 4:58pm Diabetes mellitus November 30, 2024 4:58 pm Dyslipidemia November 30, 2024 4:58 pm Essential hypertension November 30, 2024 4 :58pm Chronic kidney disease, stage 3 October 4:58pm Acute ST elevation myocardia l infarction (STEMI) of inferior wall December 03, 2024 2:01am Coronary artery vasospasm December 03 2:01am History of acute inferior wall ND December 03, 2024 2:01am Hyponatremia December 03, 2024 2:0 1am Leukocytosis December 03, 2024 2:0 1am Nonsustained monomorphic ventricular tac hycardia December 03, 2024 2:01am Obesity (BMI 30-39.9) December 03, 2024 2 :01am CHF (congestive heart failure) December 2:01am CKD (chronic kidney disease) stage 4, GF R 15-29 ml/min December 03, 2024 2:01am Hyperlipidemia December 03, 2024 2:0 1am Obesity December 03, 2024 2:0 1am Obstructive sleep apnea December 03, 2024 2:01am STEMI (ST elevation myocardial infarctio n) December 03, 2024 2:01am Chronic kidney disease December 03, 2024 2:01am Coronary artery disease December 03, 2024 2:01am Diabetes mellitus December 03, 2024 2:0 1am Dyslipidemia December 03, 2024 2:0 1am Chest pain December 07, 2024 4:[address] elevation myocardial infarctio n (STEMI) December 07, 2024 4:24pm Shortness of breath December 07, 2024 4:2 4pm Chief Complaint Admit Date 3 M FU [...] 2024 4:42 pm STEMI November 30, 2024 4:58 pm STEMI November 30, 2024 5:05 pm STEMI December 01, 2024 7:1 3am STEMI December 01, 2024 7:3 4am STEMI December 02, 2024 1:3 6pm STEMI December 02, 2024 9:3 4pm STEMI December 03, 2024 2:0 1am STEMI December 03, 2024 12: 41pm STEMI December 03, 2024 3:4 8pm STEMI December 04, 2024 7:2 5am STEMI December 04, 2024 10: 57am STEMI December 05, 2024 7:4 5am STEMI December 05, 2024 10: 19am STEMI December 06, 2024 7:4 7am STEMI December 06, 2024 8:3 8am 48 HR HM/EORDER COMING December 06, 2024 2:57pm SHORTNESS OF BREATH. December 07, 2024 4: 24pm SHORTNESS OF BREATH. December 07, 2024 4: 33pm SHORTNESS OF BREATH. December 08, 2024 7: 34am Reason for Visit Admit Date COPD (chronic obstructive pulmonary dise ase) September 20, 2024 10:13am Diastolic heart failure September 20, 2024 1 0:13am Obesity September 20, 2024 10:13 am Obstructive sleep apnea September 20, 2024 1 0:13am Shortness of breath October 25, 2024 7:54 am Bilateral lower extremity edema October 7:54am Hyperlipidemia October 25, 2024 7:54 am Obesity October 25, 2024 7:54 am Type 2 diabetes mellitus without complic ations October 25, 2024 7:54am Chest pain October 25, 2024 7:54 am Coronary artery disease October 25, 2024 7:54am Essential hypertension October 25, 2024 7 :54am Chronic kidney disease, stage 3 October 7:54am Asthma October 31, 2024 10:00 am Central sleep apnea October 31, 2024 10:00 am COPD (chronic obstructive pulmonary dise ase) October 31, 2024 10:00am Diastolic heart failure October 31, 2024 1 0:00am Obesity October 31, 2024 10:00 am Obstructive sleep apnea Gloria 1st, 2025 1 0:00am Presence of stent in coronary artery Honorio 2024 10:53am Shortness of breath November 22, 2024 10:5 3am Bilateral lower extremity edema October 10:53am Hyperlipidemia November 22, 2024 10:5 3am Obesity November 22, 2024 10:5 3am Type 2 diabetes mellitus without complic ations November 22, 2024 10:53am Chest pain November 22, 2024 10:5 3am Essential hypertension November 22, 2024 1 0:53am Chronic kidney disease, stage 3 October 10:53am Acute kidney injury superimp osed on stage 4 chronic kidney disease November 30, 2024 4:58pm Leukocytosis November 30, 2024 4:58 pm Chest pain November 30, 2024 4:58 pm STEMI (ST elevation myocardial infarctio n) November 30, 2024 4:58pm Chronic kidney disease November 30, 2024 4 :58pm Coronary artery disease November 30, 2024 4:58pm Diabetes mellitus November 30, 2024 4:58 pm Dyslipidemia November 30, 2024 4:58 pm Essential hypertension November 30, 2024 4 :58pm Chronic kidney disease, stage 3 October 4:58pm Acute ST elevation myocardia l infarction (STEMI) of inferior wall December 03, 2024 2:01am Coronary artery vasospasm December 03 2:01am History of acute inferior wall ND December 03, 2024 2:01am Hyponatremia December 03, 2024 2:0 1am Leukocytosis December 03, 2024 2:0 1am Nonsustained monomorphic ventricular tac hycardia December 03, 2024 2:01am Obesity (BMI 30-39.9) December 03, 2024 2 :01am CHF (congestive heart failure) December 2:01am CKD (chronic kidney disease) stage 4, GF R 15-29 ml/min December 03, 2024 2:01am Hyperlipidemia December 03, 2024 2:0 1am Obesity December 03, 2024 2:0 1am Obstructive sleep apnea December 03, 2024 2:01am STEMI (ST elevation myocardial infarctio n) December 03, 2024 2:01am Chronic kidney disease December 03, 2024 2:01am Coronary artery disease December 03, 2024 2:01am Diabetes mellitus December 03, 2024 2:0 1am Dyslipidemia December 03, 2024 2:0 1am Chest pain December 07, 2024 4:2 4pm DEAN (dyspnea on exertion) December 07 4:24pm Recent ST elevation myocardial infarctio n (STEMI) December 07, 2024 4:24pm Shortness of breath December 07, 2024 4:2 4pm Chief Complaint Admit Date 3 M FU [...] 2024 4:42 pm STEMI November 30, 2024 4:58 pm STEMI November 30, 2024 5:05 pm STEMI December 01, 2024 7:1 3am STEMI December 01, 2024 7:3 4am STEMI December 02, 2024 1:3 6pm STEMI December 02, 2024 9:3 4pm STEMI December 03, 2024 2:0 1am STEMI December 03, 2024 12: 41pm STEMI December 03, 2024 3:4 8pm STEMI December 04, 2024 7:2 5am STEMI December 04, 2024 10: 57am STEMI December 05, 2024 7:4 5am STEMI December 05, 2024 10: 19am STEMI December 06, 2024 7:4 7am STEMI December 06, 2024 8:3 8am 48 HR HM/EORDER COMING December 06, 2024 2:57pm LAB WORK December 07, 2024 4:0 0am SHORTNESS OF BREATH. December 07, 2024 4: 24pm SHORTNESS OF BREATH. December 07, 2024 4: 33pm SHORTNESS OF BREATH. December 08, 2024 7: 34am 3-4 W FU December 12, 2024 10 :14am Reason for Visit Admit Date COPD (chronic obstructive pulmonary dise ase) September 20, 2024 10:13am Diastolic heart failure September 20, 2024 1 0:13am Obesity September 20, 2024 10:13 am Obstructive sleep apnea September 20, 2024 1 0:13am Bilateral lower extremity edema October 7:54am Hyperlipidemia October 25, 2024 7:54 am Obesity October 25, 2024 7:54 am Type 2 diabetes mellitus without complic ations October 25, 2024 7:54am Chest pain October 25, 2024 7:54 am Shortness of breath October 25, 2024 7:54 am Coronary artery disease October 25, 2024 7:54am Essential hypertension October 25, 2024 7 :54am Chronic kidney disease, stage 3 October 7:54am Asthma October 31, 2024 10:00 am Central sleep apnea October 31, 2024 10:00 am COPD (chronic obstructive pulmonary dise ase) October 31, 2024 10:00am Diastolic heart failure October 31, 2024 1 0:00am Obesity October 31, 2024 10:00 am Obstructive sleep apnea October 31, 2024 1 0:00am Presence of stent in coronary artery Honorio 2024 10:53am Bilateral lower extremity edema October 10:53am Hyperlipidemia November 22, 2024 10:5 3am Obesity November 22, 2024 10:5 3am Type 2 diabetes mellitus without complic ations November 22, 2024 10:53am Chest pain November 22, 2024 10:5 3am Shortness of breath November 22, 2024 10:5 3am Essential hypertension November 22, 2024 1 0:53am Chronic kidney disease, stage 3 October 10:53am Acute kidney injury superimp osed on stage 4 chronic kidney disease November 30, 2024 4:58pm Chest pain November 30, 2024 4:58 pm Leukocytosis November 30, 2024 4:58 pm STEMI (ST elevation myocardial infarctio n) November 30, 2024 4:58pm Chronic kidney disease November 30, 2024 4 :58pm Coronary artery disease November 30, 2024 4:58pm Diabetes mellitus November 30, 2024 4:58 pm Dyslipidemia November 30, 2024 4:58 pm Essential hypertension November 30, 2024 4 :58pm Chronic kidney disease, stage 3 October 4:58pm Obesity (BMI 30-39.9) December 03, 2024 2 :01am CHF (congestive heart failure) December 2:01am CKD (chronic kidney disease) stage 4, GF R 15-29 ml/min December 03, 2024 2:01am Hyperlipidemia December 03, 2024 2:0 1am Obesity December 03, 2024 2:0 1am Obstructive sleep apnea December 03, 2024 2:01am Coronary artery vasospasm December 03 2:01am Hyponatremia December 03, 2024 2:0 1am Leukocytosis December 03, 2024 2:0 1am Nonsustained monomorphic ventricular tac hycardia December 03, 2024 2:01am STEMI (ST elevation myocardial infarctio n) December 03, 2024 2:01am Acute ST elevation myocardia l infarction (STEMI) of inferior wall December 03, 2024 2:01am Chronic kidney disease December 03, 2024 2:01am Coronary artery disease December 03, 2024 2:01am Diabetes mellitus December 03, 2024 2:0 1am Dyslipidemia December 03, 2024 2:0 1am History of acute inferior wall ND December 03, 2024 2:01am DEAN (dyspnea on exertion) December 07 4:24pm Shortness of breath December 07, 2024 4:2 4pm Chest pain December 07, 2024 4:[address] elevation myocardial infarctio n (STEMI) December 07, 2024 4:24pm Presence of stent in coronary artery Dec 10:14am Bilateral lower extremity edema December 012024 10:14am Hyperlipidemia December 12, 2024 10 :14am Obesity December 12, 2024 10 :14am Type 2 diabetes mellitus without complic ations December 12, 2024 10:14am Chest pain December 12, 2024 10 :14am Shortness of breath December 12, 2024 10 :14am Essential hypertension December 12, 2024 10:14am Chronic kidney disease, stage 3 December 012024 10:14am Chief Complaint Admit Date 3 M FU [...] 2024 4:42 pm STEMI November 30, 2024 4:58 pm STEMI November 30, 2024 5:05 pm STEMI December 01, 2024 7:1 3am STEMI December 01, 2024 7:3 4am STEMI December 02, 2024 1:3 6pm STEMI December 02, 2024 9:3 4pm STEMI December 03, 2024 2:0 1am STEMI December 03, 2024 12: 41pm STEMI December 03, 2024 3:4 8pm STEMI December 04, 2024 7:2 5am STEMI December 04, 2024 10: 57am STEMI December 05, 2024 7:4 5am STEMI December 05, 2024 10: 19am STEMI December 06, 2024 7:4 7am STEMI December 06, 2024 8:3 8am 48 HR HM/EORDER COMING December 06, 2024 2:57pm LAB WORK December 07, 2024 4:0 0am SHORTNESS OF BREATH. December 07, 2024 4: 24pm SHORTNESS OF BREATH. December 07, 2024 4: 33pm SHORTNESS OF BREATH. December 08, 2024 7: 34am 3-4 W FU December 12, 2024 10 :14am LABWORK December 13, 2024 5: 00am chest pain December 15, 2024 1: 37pm chest pain December 15, 2024 2: 35pm chest pain December 16, 2024 11 :54am chest pain December 16, 2024 6: 43pm chest pain December 17, 2024 1: 28pm Reason for Visit Admit Date COPD (chronic obstructive pulmonary dise ase) September 20, 2024 10:13am Diastolic heart failure September 20, 2024 1 0:13am Obesity September 20, 2024 10:13 am Obstructive sleep apnea September 20, 2024 1 0:13am Bilateral lower extremity edema October 7:54am Essential hypertension October 25, 2024 7 :54am Hyperlipidemia October 25, 2024 7:54 am Obesity October 25, 2024 7:54 am Shortness of breath October 25, 2024 7:54 am Type 2 diabetes mellitus without complic ations October 25, 2024 7:54am Chest pain October 25, 2024 7:54 am Coronary artery disease October 25, 2024 7:54am Chronic kidney disease, stage 3 October 7:54am Asthma October 31, 2024 10:00 am Central sleep apnea October 31, 2024 10:00 am COPD (chronic obstructive pulmonary dise ase) October 31, 2024 10:00am Diastolic heart failure October 31, 2024 1 0:00am Obesity October 31, 2024 10:00 am Obstructive sleep apnea October 31, 2024 1 0:00am Presence of stent in coronary artery Honorio 2024 10:53am Bilateral lower extremity edema October 10:53am Essential hypertension November 22, 2024 1 0:53am Hyperlipidemia November 22, 2024 10:5 3am Obesity November 22, 2024 10:5 3am Shortness of breath November 22, 2024 10:5 3am Type 2 diabetes mellitus without complic ations November 22, 2024 10:53am Chest pain November 22, 2024 10:5 3am Chronic kidney disease, stage 3 October 10:53am Acute kidney injury superimp osed on stage 4 chronic kidney disease November 30, 2024 4:58pm Essential hypertension November 30, 2024 4 :58pm Chest pain November 30, 2024 4:58 pm Leukocytosis November 30, 2024 4:58 pm STEMI (ST elevation myocardial infarctio n) November 30, 2024 4:58pm Chronic kidney disease November 30, 2024 4 :58pm Coronary artery disease November 30, 2024 4:58pm Diabetes mellitus November 30, 2024 4:58 pm Dyslipidemia November 30, 2024 4:58 pm Chronic kidney disease, stage 3 October 4:58pm Obesity (BMI 30-39.9) December 03, 2024 2 :01am CHF (congestive heart failure) December 2:01am CKD (chronic kidney disease) stage 4, GF R 15-29 ml/min December 03, 2024 2:01am Hyperlipidemia December 03, 2024 2:0 1am Obesity December 03, 2024 2:0 1am Obstructive sleep apnea December 03, 2024 2:01am Coronary artery vasospasm December 03 2:01am Hyponatremia December 03, 2024 2:0 1am Leukocytosis December 03, 2024 2:0 1am Nonsustained monomorphic ventricular tac hycardia December 03, 2024 2:01am STEMI (ST elevation myocardial infarctio n) December 03, 2024 2:01am Acute ST elevation myocardia l infarction (STEMI) of inferior wall December 03, 2024 2:01am Chronic kidney disease December 03, 2024 2:01am Coronary artery disease December 03, 2024 2:01am Diabetes mellitus December 03, 2024 2:0 1am Dyslipidemia December 03, 2024 2:0 1am History of acute inferior wall ND December 03, 2024 2:01am Shortness of breath December 07, 2024 4:2 4pm DEAN (dyspnea on exertion) December 07 4:24pm Chest pain December 07, 2024 4:[address] elevation myocardial infarctio n (STEMI) December 07, 2024 4:24pm Presence of stent in coronary artery Dec 10:14am Bilateral lower extremity edema December 012024 10:14am Essential hypertension December 12, 2024 10:14am Hyperlipidemia December 12, 2024 10 :14am Obesity December 12, 2024 10 :14am Shortness of breath December 12, 2024 10 :14am Type 2 diabetes mellitus without complic ations December 12, 2024 10:14am Chest pain December 12, 2024 10 :14am Chronic kidney disease, stage 3 December 012024 10:14am Central sleep apnea December 15, 2024 2: 35pm Chest pain December 15, 2024 2: 35pm Pericardial effusion December 15, 2024 2 :35pm Angina pectoris December 15, 2024 2: 35pm CKD (chronic kidney disease) stage 4, GF R 15-29 ml/min December 15, 2024 2:35pm Diastolic heart failure December 15 2:35pm Essential hypertension December 15, 2024 2:35pm History of percutaneous transluminal cor onary angioplasty December 15, 2024 2:35pm Obstructive sleep apnea December 15 2:35pm Type 2 diabetes mellitus without complic ations December 15, 2024 2:35pm Additional Source Comments (unrecognized sect ion and content) No Status Records FoundNo Status Records FoundNo Status Records FoundNo Status Records FoundNo Status Records FoundNo Status Records FoundNo Status Records Found INFORMATION SOURCE (unrecogn ized section and content) DATE CREATED AUTHOR 09/24/2018 [facility] DATE CREATED AUTHOR AUTHOR'S ORGANIZ ATION 12/20/2020 [place] DATE CREATED AUTHOR AUTHOR'S ORGANIZ ATION 01/11/2021 [facility] DATE CREATED AUTHOR AUTHOR'S ORGANIZ ATION 02/28/2021 [facility] DATE CREATED AUTHOR AUTHOR'S ORGANIZ ATION 04/20/2021 [facility] DATE CREATED AUTHOR AUTHOR'S ORGANIZ ATION 06/22/2021 [facility] DATE CREATED AUTHOR AUTHOR'S ORGANIZ ATION 12/21/2024 [place] [facility] Reason for Visit (unrecogniz ed section and content) Reason Comments Chest Pain SOB Status Reason Specialty Diagnoses / Procedures Referred By Contact Referred To Contact Closed Cardiology Diagnoses DEAN (dyspnea on exertion) Procedures ECG 12 lead Fernanda Acuña, PATROL INSPECTOR [address] [place] [address] Status Reason Specialty Diagnoses / Procedures Referre d By Contact Referred To Contact Closed Cardiology Diagnoses Shortness of breath Procedures Echocardiogram complete w contrast Echocardiogram complete Eladio Ingram MD [address] [address] Reason Comments Initial Visit (Intake) Specialty Diagnoses / Procedures Referred By Contac t Referred To Contact Cardiology Diagnoses Atherosclerosis of [place] coronary artery with angina pectoris, unspecified whether [place] or transplanted heart (HCC) Marycarmen Rodriguez DO [address] [place] [id number] Referral ID Status Reason Start Date Expiration Date V isits Requested Visits Authorized [id number] Closed Specialty Services Required/Krupa ent's Best Interest 10/04/2020 10/04/2021 1 1 Care Teams (unrecognized sec tion and content) Data Systems Analyst Relationship Specialty Start Date End Date Marycarmen Rodriguez DO [address] [place] [id number] PCP - General Family Medicine 12/17/16 Data Systems Analyst Relationship Specialty Start Date End Date Marycarmen Rodriguez DO [address] [place] [address] [phone] PCP - General Family Medicine 12/17/16 Data Systems Analyst Relationship Specialty Start Date End Date Marycarmen Rodriguez DO [address] [place] [address] [phone] PCP - General Family Medicine 12/17/16 Data Systems Analyst Relationship Specialty Start Date End Date Marycarmen Rodriguez DO [address] [place] [id number] PCP - General Family Medicine 12/17/16 Team Status: Active Member Role Status Dates Dr. Marycarmen Rodriguez DO Family Provider Active Marycarmen Rodriguez Primary Care Provider Active Team Status: Inactive Member Role Status Dates Dr. Marycarmen Rodriguez DO Primary Care Provider, Referrin g Provider Active Luz Elena Mckeon FARMWORKER ANIMAL, FARMWORKER ANIMAL-C Attending Provider Active Team Status: Inactive Member [...] Primary Care Provider Active Luz Elena Mckeon FARMWORKER ANIMAL, FARMWORKER ANIMAL-C Attending Provider Active Team Status: Inactive Member Role Status Dates Dr. Marycarmen Rodriguez DO Primary Care Provider Active Luz Elena Mckeon FARMWORKER ANIMAL, FARMWORKER ANIMAL-C Attending Provider, Referring P rovider Active Team [...] Active Member Role Status Dates Dr. Marycarmen Jennifer , DO Primary Care Provider Active Dr. Jose [...] Rodriguez DO Primary Care Provider Active Dr. Paredep Hall DO Emergency Provider Active Dr. Alka Leo MD Admit Provider, Other Provider Active Dr. Shaan Santos DO Attending Provider Active Team Status: Active Member Role Status Dates Dr. Marycarmen Rodriguez DO Primary Care Provider Active Luz Elena Mckeon FARMWORKER ANIMAL, FARMWORKER ANIMAL-C Attending Provider, Referring P sharon Active Team [...] Primary Care Provider Active Luz Elena Mckeon FARMWORKER ANIMAL, FARMWORKER ANIMAL-C Attending Provider Active Team Status: Inactive Member [...] 2024 End: April 17, 2024 Gustabo Pérez FARMWORKER ANIMAL, FARMWORKER ANIMAL-C Attending Provider Active S tart: April 17, 2024 End: April 17, 2024 Team Status: Inactive Member Role Status Dates Dr. Marycarmen Rodriguez DO Primary Care Provider Active Start: April 17, 2024 End: April 17, 2024 Gustabo Pérez FARMWORKER ANIMAL, FARMWORKER ANIMAL-C Attending Provider Active S tart: April 17, 2024 End: April 17, 2024 Gustabo Pérez FARMWORKER ANIMAL, FARMWORKER ANIMAL-C Referring Provider Active S tart: April 17, [...] 2024 End: July 03, 2024 Marni Horn FARMWORKER ANIMAL, FARMWORKER ANIMAL-C Attending Provider Active Start: July 03, 2024 End: July 03, 2024 Team Status: Active Member Role Status Dates Dr. Marycarmen Rodriguez DO Primary Care Provider Active Start: July 07, 2024 Marni Horn FARMWORKER ANIMAL, FARMWORKER ANIMAL-C Attending Provider Active Start: July 07, 2024 Marni Horn FARMWORKER ANIMAL, FARMWORKER ANIMAL-C Referring Provider Active Start: July 07, 2024 Team Status: Inactive Member Role Status Dates Dr. Marycarmen Rodriguez DO Primary Care Provider Active Start: July 07, 2024 End: July 07, 2024 Marni Horn FARMWORKER ANIMAL, FARMWORKER ANIMAL-C Attending Provider Active Start: July 07, 2024 End: July 07, 2024 Marni Horn FARMWORKER ANIMAL, FARMWORKER ANIMAL-C Referring Provider Active Start: July 07, 2024 End: July 07, 2024 Team Status: Active Member Role Status Dates Dr. Marycarmen Rodriguez DO Primary Care Provider Active Start: July 17, 2024 Marni Horn FARMWORKER ANIMAL, FARMWORKER ANIMAL-C Attending Provider Active Start: July 17, 2024 Marni Horn FARMWORKER ANIMAL, FARMWORKER ANIMAL-C Referring Provider Active Start: July 17, 2024 Team Status: Active Member Role Status Dates Dr. Marycarmen Rodriguez DO Primary Care Provider Active Start: July 18, 2024 Marni Horn FARMWORKER ANIMAL, FARMWORKER ANIMAL-C Attending Provider Active Start: July 18, 2024 Marni Horn FARMWORKER ANIMAL, FARMWORKER ANIMAL-C Referring Provider Active Start: July 18, 2024 Team Status: Active Member Role Status Dates Dr. Marycarmen Rodriguez DO Primary Care Provider Active Start: July 18, 2024 Marni Horn FARMWORKER ANIMAL, FARMWORKER ANIMAL-C Referring Provider Active Start: July 18, 2024 Marni Horn FARMWORKER ANIMAL, FARMWORKER ANIMAL-C Other Provider Active Start: July 18, 2024 Dr. Zen East DO Attending Provider Active S tart: July 18, 2024 Team Status: Inactive Member Role Status Dates Dr. Marycarmen Rodriguez DO Primary Care Provider Active Start: July 17, 2024 End: July 17, 2024 Marni Horn FARMWORKER ANIMAL, FARMWORKER ANIMAL-C Attending Provider Active Start: July 17, 2024 End: July 17, 2024 Marni Horn FARMWORKER ANIMAL, FARMWORKER ANIMAL-C Referring Provider Active Start: July 17, 2024 End: July 17, 2024 Team Status: Inactive Member Role Status Dates Dr. Marycarmen Rodriguez DO Primary Care Provider Active Start: July 18, 2024 End: July 18, 2024 Marni Horn FARMWORKER ANIMAL, FARMWORKER ANIMAL-C Attending Provider Active Start: July 18, 2024 End: July 18, 2024 Marni Horn FARMWORKER ANIMAL, FARMWORKER ANIMAL-C Referring Provider Active Start: July 18, 2024 End: July 18, 2024 Team Status: Inactive Member Role Status Dates Dr. Marycarmen Rodriguez DO Primary Care Provider Active Start: August 03, 2024 End: August 03, 2024 Marni Horn FARMWORKER ANIMAL, FARMWORKER ANIMAL-C Attending Provider Active Start: August 03, 2024 End: August 03, 2024 Marni Horn FARMWORKER ANIMAL, FARMWORKER ANIMAL-C Referring Provider Active Start: August 03, 2024 End: August 03, 2024 Team Status: Inactive Member Role Status Dates Dr. Marycarmen Rodriguez DO Primary Care Provider Active Start: September 20, 2024 End: September 20, 2024 Dr. Marycarmen Rodriguez DO Referring Provider Active Start: September 20, 2024 End: September 20, 2024 Maren Olivas FARMWORKER [employer]IMAL-C Attending Provider Active Start: September 20, 2024 End: September 20, 2024 Team Status: Inactive Member Role Status Dates Dr. Marycarmen Rodriguez DO Primary Care Provider Active Start: September 20, 2024 End: September 20, 2024 Maren Olivas FARMWORKER ANIMAL-C Attending Provider Active Start: September 20, 2024 End: September 20, 2024 Maren Olivas FARMWORKER ANIMAL-C Referring Provider Active Start: September 20, 2024 End: September 20, 2024 Team Status: Active Member Role Status Dates Dr. Marycarmen Rodriguez DO Primary Care Provider Active Start: September 22, 2024 Marni Horn FARMWORKER ANIMAL, FARMWORKER ANIMAL-C Attending Provider Active Start: September 22, 2024 Team Status: Inactive Member Role Status Dates Dr. Marycarmen Rodriguez DO Primary Care Provider Active Start: September 22, 2024 End: September 22, 2024 Marni Horn FARMWORKER ANIMAL, FARMWORKER ANIMAL-C Attending Provider Active Start: September 22, 2024 [...] S tart: July 17, 2024 Marni Horn FARMWORKER ANIMAL, FARMWORKER ANIMAL-C Referring Provider Active Start: July 17, 2024 Team Status: Inactive Member Role Status Dates Dr. Marycarmen Rodriguez DO Primary Care Provider Active Start: October 18, 2024 End: October 18, 2024 Dr. Brooks Carpenter MD Attending Provider Active Start: October 18, 2024 End: October 18, 2024 Dr. Brooks Carpenter MD Referring Provider Active Start: October 18, 2024 End: October 18, 2024 Gustabo Pérez FARMWORKER ANIMAL, FARMWORKER ANIMAL-C Other Provider Active Start : October 18, 2024 End: October 18, 2024 Team Status: Active Member Role Status Dates Dr. Marycarmen Rodriguez DO Primary Care Provider Active Start: October 18, 2024 Marni Horn FARMWORKER ANIMAL, FARMWORKER ANIMAL-C Attending Provider Active Start: October 18, 2024 Team Status: Inactive Member Role Status Dates Dr. Marycarmen Rodriguez DO Primary Care Provider Active Start: October 25, 2024 End: October 25, 2024 Dr. Marycarmen Rodriguez DO Referring Provider Active Start: October 25, 2024 End: October 25, 2024 Gustabo Pérez FARMWORKER ANIMAL, FARMWORKER ANIMAL-C Attending Provider Active S tart: October 25, 2024 End: October 25, 2024 Team Status: Inactive Member Role Status Dates Dr. Marycarmen Rodriguez DO Primary Care Provider Active Start: October 18, 2024 End: October 18, 2024 Marni Horn FARMWORKER ANIMAL, FARMWORKER ANIMAL-C Attending Provider Active Start: October 18, 2024 [...] 2024 End: July 03, 2024 Marni Horn FARMWORKER ANIMAL, FARMWORKER ANIMAL-C Attending Provider Active Start: July 03, 2024 End: July 03, 2024 Team Status: Inactive Member Role/Relationship Status Dates Dr. Marycarmen Rodriguez DO Primary Care Provider Active Start: July 07, 2024 End: July 07, 2024 Marni Horn FARMWORKER ANIMAL, FARMWORKER ANIMAL-C Attending Provider Active Start: July 07, 2024 End: July 07, 2024 Marni Horn FARMWORKER ANIMAL, FARMWORKER ANIMAL-C Referring Provider Active Start: July 07, 2024 End: July 07, 2024 Team Status: Inactive Member Role/Relationship Status Dates Dr. Marycarmen Rodriguez DO Primary Care Provider Active Start: July 17, 2024 End: July 17, 2024 Marni Horn FARMWORKER ANIMAL, FARMWORKER ANIMAL-C Attending Provider Active Start: July 17, 2024 End: July 17, 2024 Marni Horn FARMWORKER ANIMAL, FARMWORKER ANIMAL-C Referring Provider Active Start: July 17, 2024 End: July 17, 2024 Team Status: Active Member Role/Relationship Status Dates Dr. Marycarmen Rodriguez DO Primary Care Provider Active Start: July 17, 2024 Dr. Zen East DO Attending Provider Active S tart: July 17, 2024 Marni Horn FARMWORKER ANIMAL, FARMWORKER ANIMAL-C Referring Provider Active Start: July 17, 2024 Team Status: Inactive Member Role/Relationship Status Dates Dr. Marycarmen Rodriguez DO Primary Care Provider Active Start: July 18, 2024 End: July 18, 2024 Marni Horn FARMWORKER ANIMAL, FARMWORKER ANIMAL-C Attending Provider Active Start: July 18, 2024 End: July 18, 2024 Marni Horn FARMWORKER ANIMAL, FARMWORKER ANIMAL-C Referring Provider Active Start: July 18, 2024 End: July 18, 2024 Team Status: Active Member Role/Relationship Status Dates Dr. Marycarmen Rodriguez DO Primary Care Provider Active Start: July 18, 2024 Marni Horn FARMWORKER ANIMAL, FARMWORKER ANIMAL-C Referring Provider Active Start: July 18, 2024 Marni Horn FARMWORKER ANIMAL, FARMWORKER ANIMAL-C Other Provider Active Start: July 18, 2024 Dr. Zen East DO Attending Provider Active S tart: July 18, 2024 Team Status: Inactive Member Role/Relationship Status Dates Dr. Marycarmen Rodriguez DO Primary Care Provider Active Start: August 03, 2024 End: August 03, 2024 Marni Horn NP, FARMWORKER ANIMAL-C Attending Provider Active Start: August 03, 2024 End: August 03, 2024 Marni Horn FARMWORKER ANIMAL, FARMWORKER ANIMAL-C Referring Provider Active Start: August 03, 2024 [...] End: September 22, 2024 Marni Horn NP, FARMWORKER ANIMAL-C Attending Provider Active Start: September 22, 2024 [...] 2024 End: October 18, 2024 Gustabo Pérez FARMWORKER ANIMAL, FARMWORKER ANIMAL-C Other Provider Active Start : October 18, 2024 End: October 18, 2024 Team Status: Inactive Member Role/Relationship Status Dates Dr. Marycarmen Rodriguez DO Primary Care Provider Active Start: October 18, 2024 End: October 18, 2024 Marni Horn FARMWORKER ANIMAL, FARMWORKER ANIMAL-C Attending Provider Active Start: October 18, 2024 End: October 18, 2024 Team Status: Inactive Member Role/Relationship Status Dates Dr. Marycarmen Rodriguez DO Primary Care Provider Active Start: October 25, 2024 End: October 25, 2024 Dr. Marycarmen Rodriguez DO Referring Provider Active Start: October 25, 2024 End: October 25, 2024 Gustabo Pérez FARMWORKER ANIMAL, FARMWORKER ANIMAL-C Attending Provider Active S tart: October 25, 2024 End: October 25, 2024 Team Status: Active Member Role/Relationship Status Dates Dr. Marycarmen Rodriguez DO Primary Care Provider Active Start: October 26, 2024 Marni Horn FARMWORKER ANIMAL, FARMWORKER ANIMAL-C Attending Provider Active Start: October 26, 2024 Marni Horn FARMWORKER ANIMAL, FARMWORKER ANIMAL-C Referring Provider Active Start: October 26, 2024 Team Status: Inactive Member Role/Relationship Status Dates Dr. Marycarmen Rodriguez DO Primary Care Provider Active Start: October 31, 2024 End: October 31, 2024 Dr. Marycarmen Rodriguez DO Referring Provider Active Start: October 31, 2024 End: October 31, 2024 Maren Olivas FARMWORKER ANIMAL-C Attending Provider Active Start: October 31, 2024 End: October 31, 2024 Team Status: Inactive Member Role/Relationship Status Dates Dr. Marycarmen Rodriguez DO Primary Care Provider Active Start: October 26, 2024 End: October 26, 2024 Marni Horn FARMWORKER ANIMAL, FARMWORKER ANIMAL-C Attending Provider Active Start: October 26, 2024 End: October 26, 2024 Marni Horn FARMWORKER ANIMAL, FARMWORKER ANIMAL-C Referring Provider Active Start: October 26, 2024 End: October 26, 2024 Team Status: Inactive Member Role/Relationship Status Dates Dr. Marycarmen Rodriguez DO Primary Care Provider Active Start: August 03, 2024 End: August 03, 2024 Marni Horn FARMWORKER ANIMAL, FARMWORKER ANIMAL-C Attending Provider Active Start: August 03, 2024 End: August 03, 2024 Marni Horn FARMWORKER ANIMAL, FARMWORKER ANIMAL-C Referring Provider Active Start: August 03, 2024 [...] 2024 End: September 20, 2024 Maren Olivas FARMWORKER ANIMAL-C Attending Provider Active Start: September 20, 2024 End: September 20, 2024 Maren Olivas NP-C Referring Provider Active Start: September 20, 2024 End: September 20, 2024 Team Status: Inactive Member Role/Relationship Status Dates Dr. Marycarmen Rodriguez DO Primary Care Provider Active Start: September 22, 2024 End: September 22, 2024 Marni Horn NP, FARMWORKER ANIMAL-C Attending Provider Active Start: September 22, 2024 [...] End: October 18, 2024 Gustabo Pérez NP, FARMWORKER ANIMAL-C Other Provider Active Start : October 18, 2024 End: October 18, 2024 Team Status: Inactive Member Role/Relationship Status Dates Dr. Marycarmen Rodriguez DO Primary Care Provider Active Start: October 18, 2024 End: October 18, 2024 Marni Horn NP, FARMWORKER ANIMAL-C Attending Provider Active Start: October 18, 2024 End: October 18, 2024 Team Status: Inactive Member Role/Relationship Status Dates Dr. Marycarmen Rodriguez DO Primary Care Provider Active Start: October 25, 2024 End: October 25, 2024 Dr. Marycarmen Rodriguez DO Referring Provider Active Start: October 25, 2024 End: October 25, 2024 Gustabo Pérez FARMWORKER ANIMAL, FARMWORKER ANIMAL-C Attending Provider Active S tart: October 25, 2024 End: October 25, 2024 Team Status: Inactive Member Role/Relationship Status Dates Dr. Marycarmen Rodriguez DO Primary Care Provider Active Start: October 26, 2024 End: October 26, 2024 Marni Horn FARMWORKER ANIMAL, FARMWORKER ANIMAL-C Attending Provider Active Start: October 26, 2024 End: October 26, 2024 Marni Horn FARMWORKER ANIMAL, FARMWORKER ANIMAL-C Referring Provider Active Start: October 26, 2024 [...] Active Start: November 10, 2024 Gustabo Pérez FARMWORKER ANIMAL, FARMWORKER ANIMAL-C Attending Provider Active S tart: November 10, 2024 Gustabo Pérez FARMWORKER ANIMAL, FARMWORKER ANIMAL-C Referring Provider Active S tart: November 10, 2024 Team Status: Active Member Role/Relationship Status Dates Dr. Marycarmen Rodriguez DO Primary Care Provider Active Start: November 10, 2024 Dr. Lance Rodriguez MD Attending Provider Active S tart: November 10, 2024 Gustabo Pérez FARMWORKER ANIMAL, FARMWORKER ANIMAL-C Referring Provider Active S tart: November 10, [...] Active Start: November 13, 2024 Gustabo Pérez FARMWORKER ANIMAL, FARMWORKER ANIMAL-C Referring Provider Active S tart: November 13, 2024 Gustabo Pérez FARMWORKER ANIMAL, FARMWORKER ANIMAL-C Other Provider Active Start : November 13, 2024 Dr. Jose Hay MD Attending Provider Active Start: November 13, 2024 Team Status: Inactive Member Role/Relationship Status Dates Dr. Marycarmen Rodriguez DO Primary Care Provider Active Start: November 10, 2024 End: November 10, 2024 Gustabo Pérez FARMWORKER ANIMAL, FARMWORKER ANIMAL-C Attending Provider Active S tart: November 10, 2024 End: November 10, 2024 Gustabo Pérez FARMWORKER ANIMAL, FARMWORKER ANIMAL-C Referring Provider Active S tart: November 10, [...] 2024 End: November 22, 2024 Gustabo Pérez FARMWORKER ANIMAL, FARMWORKER ANIMAL-C Attending Provider Active S tart: November 22, [...] Active Start: November 22, 2024 Gustabo Pérez FARMWORKER ANIMAL, FARMWORKER ANIMAL-C Attending Provider Active S tart: November 22, 2024 Gustabo Pérez FARMWORKER ANIMAL, FARMWORKER ANIMAL-C Referring Provider Active S tart: November 22, [...] 2024 End: November 22, 2024 Gustabo Pérez FARMWORKER ANIMAL, FARMWORKER ANIMAL-C Attending Provider Active S tart: November 22, 2024 End: November 22, 2024 Gustabo Pérez FARMWORKER ANIMAL, FARMWORKER ANIMAL-C Referring Provider Active S tart: November 22, [...] 2024 End: September 22, 2024 Marni Horn FARMWORKER ANIMAL, FARMWORKER ANIMAL-C Attending Provider Active Start: September 22, 2024 [...] 2024 End: October 18, 2024 Gustabo Pérez FARMWORKER ANIMAL, FARMWORKER ANIMAL-C Other Provider Active Start : October 18, 2024 End: October 18, 2024 Team Status: Inactive Member Role/Relationship Status Dates Dr. Marycarmen Rodriguez DO Primary Care Provider Active Start: October 18, 2024 End: October 18, 2024 Marni Horn FARMWORKER ANIMAL, FARMWORKER ANIMAL-C Attending Provider Active Start: October 18, 2024 End: October 18, 2024 Team Status: Inactive Member Role/Relationship Status Dates Dr. Marycarmen Rodriguez DO Primary Care Provider Active Start: October 25, 2024 End: October 25, 2024 Dr. Marycarmen Rodriguez DO Referring Provider Active Start: October 25, 2024 End: October 25, 2024 Gustabo Pérez FARMWORKER ANIMAL, FARMWORKER ANIMAL-C Attending Provider Active S tart: October 25, 2024 End: October 25, 2024 Team Status: Inactive Member Role/Relationship Status Dates Dr. Marycarmen Rodriguez DO Primary Care Provider Active Start: October 26, 2024 End: October 26, 2024 Marni Horn FARMWORKER ANIMAL, FARMWORKER ANIMAL-C Attending Provider Active Start: October 26, 2024 End: October 26, 2024 Marni Horn FARMWORKER ANIMAL, FARMWORKER ANIMAL-C Referring Provider Active Start: October 26, 2024 [...] 2024 End: November 10, 2024 Gustabo Pérez FARMWORKER ANIMAL, FARMWORKER ANIMAL-C Attending Provider Active S tart: November 10, 2024 End: November 10, 2024 Gustabo Pérez FARMWORKER ANIMAL, FARMWORKER ANIMAL-C Referring Provider Active S tart: November 10, 2024 End: November 10, 2024 Team Status: Active Member Role/Relationship Status Dates Dr. Marycarmen Rodriguez DO Primary Care Provider Active Start: November 10, 2024 Dr. Lance Rodriguez MD Attending Provider Active S tart: November 10, 2024 Gustabo Pérez FARMWORKER ANIMAL, FARMWORKER ANIMAL-C Referring Provider Active S tart: November 10, 2024 Team Status: Inactive Member Role/Relationship Status Dates Dr. Marycarmen Rodriguez DO Primary Care Provider Active Start: November 10, 2024 End: November 10, 2024 Maren Olivas NP-C Attending Provider Active Start: November 10, 2024 End: November 10, 2024 Maren Olivas FARMWORKER ANIMAL-C Referring Provider Active Start: November 10, 2024 End: November 10, 2024 Team Status: Active Member Role/Relationship Status Dates Dr. Marycarmen Rodriguez DO Primary Care Provider Active Start: November 13, 2024 Gustabo Pérez FARMWORKER ANIMAL, FARMWORKER ANIMAL-C Referring Provider Active S tart: November 13, 2024 Gustabo Pérez FARMWORKER ANIMAL, FARMWORKER ANIMAL-C Other Provider Active Start : November 13, 2024 Dr. Jose Hay MD Attending Provider Active Start: November 13, 2024 Team Status: Inactive Member Role/Relationship Status Dates Dr. Maryacrmen Rodriguez DO Primary Care Provider Active Start: [...] 2024 End: November 22, 2024 Gustabo Pérez FARMWORKER ANIMAL, FARMWORKER ANIMAL-C Attending Provider Active S tart: November 22, 2024 End: November 22, 2024 Team Status: Inactive Member Role/Relationship Status Dates Dr. Marycarmen Rodriguez DO Primary Care Provider Active Start: November 22, 2024 End: November 22, 2024 Gustabo Pérez FARMWORKER ANIMAL, FARMWORKER ANIMAL-C Attending Provider Active S tart: November 22, 2024 End: November 22, 2024 Gustabo Pérez FARMWORKER ANIMAL, FARMWORKER ANIMAL-C Referring Provider Active S tart: November 22, [...] Active S tart: December 01, 2024 Dr. Nicike Danielson DO Other Provider Active Start : [...] : December 02, 2024 Dr. Petrona Vargas , Other Provider Active St art: December 02, [...] Referring Provider Active Start: December 02, 2024 Team Status: Inactive Member Role/Relationship Status [...] Active Star t: November 30, 2024 Dr. Abraham Ridley DO [...] December 02, 2024 Dr. Mickey Simpson MD Other Provider Active St art: December 02, 2024 Dr. Ramonita Herron MD Other Provider Active Star t: December 02, 2024 Dr. Marcin Araujo MD Attending Provider Active S tart: December 02, 2024 Team Status: Active Member Role/Relationship Status Dates Dr. Marycarmen Rodriguez DO Primary Care Provider Active Start: December 03, 2024 Dr. Rasheed Canela MD Emergency Provider Active Sta rt: December 03, 2024 Dr. Abraham Ridley DO Admit Provider Active Start: December 03, 2024 Dr. Abraham Ridley DO Other Provider Active Start: December 03, 2024 Dr. Mickey Simpson MD Referring Provider Active Start: December 03, 2024 Dr. Mickey Simpson MD Other Provider Active St art: December 03, 2024 Dr. Ramonita Herron MD Other Provider Active Star t: December 03, 2024 Dr. Alex Sanon MD Attending Provider Active Start: December 03, 2024 Team Status: Active Member Role/Relationship Status Dates Dr. Marycarmen Rodriguez DO Primary Care Provider Active Start: December 03, 2024 Dr. Rasheed Canela MD Emergency Provider Active Sta rt: December 03, 2024 Dr. Abraham Ridley DO Admit Provider Active Start: December 03, 2024 Dr. Abraham Ridley DO Other Provider Active Start: December 03, 2024 Dr. Mickey Simpson MD Referring Provider Active Start: December 03, 2024 Dr. Mickey Simpson MD Other Provider Active St art: December 03, 2024 Dr. Ramonita Herron MD Other Provider Active Star t: December 03, 2024 Dr. Marcin Araujo MD Attending Provider Active S tart: December 03, 2024 Team Status: Active Member Role/Relationship Status Dates Dr. Marycarmen Rodriguez DO Primary Care Provider Active Start: December 03, 2024 Dr. Rasheed Canela MD Emergency Provider Active Sta rt: December 03, 2024 Dr. Abraham Ridley DO Admit Provider Active Start: December 03, 2024 Dr. Abraham Ridley DO Other Provider Active Start: December 03, 2024 Dr. Mickey Simpson MD Referring Provider Active Start: December 03, 2024 Dr. Mickey Simpson MD Other Provider Active St art: December 03, 2024 Dr. Ramonita Herron MD Attending Provider Active Start: December 03, 2024 Dr. Ramonita Herron MD Other Provider Active Star t: December 03, 2024 Team Status: Active Member Role/Relationship Status Dates Dr. Marycarmen Rodriguez DO Primary Care Provider Active Start: December 04, 2024 Dr. Rasheed Canela MD Emergency Provider Active Sta rt: December 04, 2024 Dr. Abraham Ridley DO Admit Provider Active Start: December 04, 2024 Dr. Abraham Ridley DO Other Provider Active Start: December 04, 2024 Dr. Mickey Simpson MD Referring Provider Active Start: December 04, 2024 Dr. Mickey Simpson MD Other Provider Active St art: December 04, 2024 Dr. Ramonita Herron MD Other Provider Active Star t: December 04, 2024 Dr. Marcin Araujo MD Attending Provider Active S tart: December 04, 2024 Team Status: Active Member Role/Relationship Status Dates Dr. Marycarmen Rodriguez DO Primary Care Provider Active Start: December 04, 2024 Dr. Rasheed Canela MD Emergency Provider Active Sta rt: December 04, 2024 Dr. Abraham Ridley DO Admit Provider Active Start: December 04, 2024 Dr. Abraham Ridley DO Attending Provider Active Start: December 04, 2024 Dr. Abraham Ridley DO Other Provider Active Start: December 04, 2024 Dr. Mickey Simpson MD Referring Provider Active Start: December 04, 2024 Dr. Mickey Simpson MD Other Provider Active St art: December 04, 2024 Dr. Ramonita Herron MD Other Provider Active Star t: December 04, 2024 Team Status: Active Member Role/Relationship Status Dates Dr. Marycarmen Rodriguez DO Primary Care Provider Active Start: December 05, 2024 Dr. Rasheed Canela MD Emergency Provider Active Sta rt: December 05, 2024 Dr. Abraham Ridley DO Admit Provider Active Start: December 05, 2024 Dr. Abraham Ridley DO Other Provider Active Start: December 05, 2024 Dr. Mickey Simpson MD Referring Provider Active Start: December 05, 2024 Dr. Mickey Simpson MD Other Provider Active St art: December 05, 2024 Dr. Ramonita Herron MD Other Provider Active Star t: December 05, 2024 Dr. Alex Sanon MD Other Provider Active Star t: December 05, 2024 Dr. Marcin Araujo MD Attending Provider Active S tart: December 05, 2024 Team Status: Inactive Member Role/Relationship Status Dates Dr. Marycarmen Rodriguez DO Primary Care Provider Active Start: December 03, 2024 End: December 06, 2024 Dr. Rasheed Canela MD Emergency Provider Active Sta rt: December 03, 2024 End: December 06, 2024 Dr. Abraham Ridley DO Admit Provider Active Start: December 03, 2024 End: December 06, 2024 Dr. Abraham Ridley DO Other Provider Active Start: December 03, 2024 End: December 06, 2024 Dr. Mickey Simpson MD Referring Provider Active Start: December 03, 2024 End: December 06, 2024 Dr. Mickey Simpson MD Other Provider Active St art: December 03, 2024 End: December 06, 2024 Dr. Ramonita Herron MD Other Provider Active Star t: December 03, 2024 End: December 06, 2024 Dr. Alex Sanon MD Attending Provider Active Start: December 03, 2024 End: December 06, 2024 Team Status: Active Member Role/Relationship Status Dates Dr. Marycarmen Rodriguez DO Primary Care Provider Active Start: December 05, 2024 Dr. Rahseed Canela MD Emergency Provider Active Sta rt: December 05, 2024 Dr. Abraham Ridlye DO Admit Provider Active Start: December 05, 2024 Dr. Abraham Ridley DO Other Provider Active Start: December 05, 2024 Dr. Mickey Simpson MD Referring Provider Active Start: December 05, 2024 Dr. Mickey Simpson MD Other Provider Active St art: December 05, 2024 Dr. Ramonita Herron MD Other Provider Active Star t: December 05, 2024 Dr. Alex Sanon MD Attending Provider Active Start: December 05, 2024 Dr. Alex Sanon MD Other Provider Active Star t: December 05, 2024 Team Status: Active Member Role/Relationship Status Dates Dr. Marycarmen Rodriguez DO Primary Care Provider Active Start: December 06, 2024 Dr. Rasheed Canela MD Emergency Provider Active Sta rt: December 06, 2024 Dr. Abraham Ridley DO Admit Provider Active Start: December 06, 2024 Dr. Abraham Ridley DO Other Provider Active Start: December 06, 2024 Dr. Mickey Simpson MD Referring Provider Active Start: December 06, 2024 Dr. Mickey Simpson MD Other Provider Active St art: December 06, 2024 Dr. Ramonita Herron MD Other Provider Active Star t: December 06, 2024 Dr. Alex Sanon MD Other Provider Active Star t: December 06, 2024 Dr. Marcin Araujo MD Attending Provider Active S tart: December 06, 2024 Team Status: Active Member Role/Relationship Status Dates Dr. Marycarmen Rodriguez DO Primary Care Provider Active Start: December 06, 2024 Dr. Rasheed Canela MD Emergency Provider Active Sta rt: December 06, 2024 Dr. Abraham Ridley DO Admit Provider Active Start: December 06, 2024 Dr. Abraham Ridley DO Other Provider Active Start: December 06, 2024 Dr. Mickey Simpson MD Referring Provider Active Start: December 06, 2024 Dr. Mickey Simpson MD Other Provider Active St art: December 06, 2024 Dr. Ramonita Herron MD Other Provider Active Star t: December 06, 2024 Dr. Alex Sanon MD Attending Provider Active Start: December 06, 2024 Dr. Alex Sanon MD Other Provider Active Star t: December 06, 2024 Team Status: Inactive Member Role/Relationship Status Dates Dr. Marycarmen Rodriguze , Primary Care Provider Active Start: December 06, 2024 End: December 06, 2024 Dr. Marcin Araujo MD Attending Provider Active S tart: December 06, 2024 End: December 06, 2024 Dr. Marcin Araujo MD Referring Provider Active S tart: December 06, 2024 End: December 06, 2024 Team Status: Active Member Role/Relationship Status Dates Dr. Marycarmen Rodriguez , Primary Care Provider Active Start: December 07, 2024 Boyd SWAIN MD Attending Provider Active Start: December 07, 2024 Team Status: Active Member Role/Relationship Status Dates Dr. Marycarmen Rodriguez DO Primary Care Provider Active Start: December 07, 2024 Dr. Tor Irizarry , DO Emergency Provider Activ e Start: December 07, 2024 Dr. Shaan Santos , Admit Provider Active Star t: December 07, 2024 Dr. Shaan Santos DO Attending Provider Active Start: December 07, 2024 Team Status: Active Member Role/Relationship Status Dates Dr. Marycarmen Rodriguez DO Primary Care Provider Active Start: December 07, 2024 Dr. Tor Irizarry DO Emergency Provider Activ e Start: December 07, 2024 Dr. Shaan Santos DO Admit Provider Active Star t: December 07, 2024 Dr. Shaan Santos DO Attending Provider Active Start: December 07, 2024 Dr. Shaan Santos DO Other Provider Active Star t: December 07, 2024 Team Status: Inactive Member Role/Relationship Status Dates Dr. Marycarmen Rodriguez DO Primary Care Provider Active Start: December 07, 2024 End: December 08, 2024 Dr. Tor Irizarry , DO Emergency Provider Activ e Start: December 07, 2024 End: December 08, 2024 Dr. Shaan Santos DO Admit Provider Active Star t: December 07, 2024 End: December 08, 2024 Dr. Shaan Santos DO Other Provider Active Star t: December 07, 2024 End: December 08, 2024 Dr. Alex Sanon MD Attending Provider Active Start: December 07, 2024 End: December 08, 2024 Team Status: Active Member Role/Relationship Status Dates Dr. Marycarmen Rodriguez DO Primary Care Provider Active Start: December 08, 2024 Dr. Tor Irizarry DO Emergency Provider Activ e Start: December 08, 2024 Dr. Shaan Santos , DO Admit Provider Active Star t: December 08, 2024 Dr. Shaan Santos , DO Other Provider Active Star t: December 08, 2024 Dr. Alex Sanon MD Attending Provider Active Start: December 08, 2024 Dr. Alex Sanon MD Other Provider Active Star t: December 08, 2024 Team Status: Active Member Role/Relationship Status Dates Dr. Marycarmen Rodriguez DO Primary Care Provider Active Start: December 07, 2024 Boyd SWAIN MD Attending Provider Active Start: December 07, 2024 Boyd SWAIN MD Referring Provider Active Start: December 07, 2024 Team Status: Inactive Member Role/Relationship Status Dates Dr. Marycarmen Rodriguez DO Primary Care Provider Active Start: December 12, 2024 End: December 12, 2024 Dr. Marycarmen Rodriguez DO Referring Provider Active Start: December 12, 2024 End: December 12, 2024 Gustabo Pérez [employer], [employer]-C Attending Provider Active S tart: December 12, 2024 End: December 12, 2024 Team Status: Active Member Role/Relationship Status Dates Dr. Marycarmen Rodriguez DO Primary Care Provider Active Start: December 01, 2024 Isael Bernabe MD Emergency Provider Active Star t: December 01, 2024 Dr. Abraham Ridley DO Admit Provider Active Start: December 01, 2024 Dr. Abraham Ridley , Other Provider Active Start: December 01, 2024 Dr. Nickie Danielson , Attending Provider Active S tart: December 01, 2024 Dr. Nickie Danielson , DO Other Provider Active Start : December 01, 2024 Team Status: Active Member Role/Relationship Status Dates Dr. Marycarmen Rodriguez DO Primary Care Provider Active Start: December 02, 2024 Isael Bernabe MD Emergency Provider Active Star t: December 02, 2024 Dr. Abraham Ridley DO [...] DO Primary Care Provider Active Start: December 03, 2024 Dr. Rasheed Canela MD Emergency Provider Active Sta rt: December 03, 2024 Dr. Abraham Ridley DO Admit Provider Active Start: December 03, 2024 Dr. Abraham Mosteller , DO Other Provider Active Start: December 03, 2024 Dr. Mickey Simpson MD Other Provider Active St art: December 03, 2024 Dr. Ramonita Herron MD Attending Provider Active Start: December 03, 2024 Dr. Ramonita Herron MD Other Provider Active Star t: December 03, 2024 Team Status: Active Member Role/Relationship Status Dates Dr. Marycarmen Rodriguez DO Primary Care Provider Active Start: December 04, 2024 Dr. Rasheed Canela MD Emergency Provider Active Sta rt: December 04, 2024 Dr. Abraham Ridley DO Admit Provider Active Start: December 04, 2024 Dr. Abraham Ridley DO Attending Provider Active Start: December 04, 2024 Dr. Abraham Ridley DO Other Provider Active Start: December 04, 2024 Dr. Mickey Simpson MD Other Provider Active St art: December 04, 2024 Dr. Ramonita Herron MD Other Provider Active Star t: December 04, 2024 Team Status: Active Member Role/Relationship Status Dates Dr. Marycarmen Rodriguez DO Primary Care Provider Active Start: December 05, 2024 Dr. Rasheed Canela MD Emergency Provider Active Sta rt: December 05, 2024 Dr. Abraham Ridley DO Admit Provider Active Start: December 05, 2024 Dr. Abraham Ridley DO Other Provider Active Start: December 05, 2024 Dr. Mickey Simpson MD Other Provider Active St art: December 05, 2024 Dr. Ramonita Herron MD Other Provider Active Star t: December 05, 2024 Dr. Alex Sanon MD Attending Provider Active Start: December 05, 2024 Dr. Alex Sanon MD Other Provider Active Star t: December 05, 2024 Team Status: Active Member Role/Relationship Status Dates Dr. Marycarmen Rodriguez DO Primary Care Provider Active Start: December 06, 2024 Dr. Rasheed Canela MD Emergency Provider Active Sta rt: December 06, 2024 Dr. Abraham Ridley DO Admit Provider Active Start: December 06, 2024 Dr. Abraham Ridley DO Other Provider Active Start: December 06, 2024 Dr. Mickey Simpson MD Other Provider Active St art: December 06, 2024 Dr. Ramonita Herron MD Other Provider Active Star t: December 06, 2024 Dr. Alex Sanon MD Attending Provider Active Start: December 06, 2024 Dr. Alex Sanon MD Other Provider Active Star t: December 06, 2024 Team Status: Active Member Role/Relationship Status Dates Dr. Marycarmen Rodriguez DO Primary Care Provider Active Start: December 12, 2024 Gustabo Pérez [employer], [employer]-C Attending Provider Active S tart: December 12, 2024 Gustabo Pérez [employer], [employer] Referring Provider Active S tart: December 12, 2024 Team Status: Active Member Role/Relationship Status Dates Dr. Marycarmen Rodriguez DO Primary Care Provider Active Start: December 13, 2024 Boyd SWAIN MD Attending Provider Active Start: December 13, 2024 Team Status: Active Member Role/Relationship Status Dates Dr. Marycarmen Rodriguez DO Primary Care Provider Active Start: December 15, 2024 Dr. Payal Weldon DO Emergency Provider Active Start: December 15, 2024 Dr. Sunil Faye MD Attending Provider Active S tart: December 15, 2024 Team Status: Inactive Member Role/Relationship Status Dates Dr. Marycarmen Rodriguez DO Primary Care Provider Active Start: December 15, 2024 End: December 17, 2024 Dr. Payal Weldon DO Emergency Provider Active Start: December 15, 2024 End: December 17, 2024 Dr. Ramonita Herron MD Admit Provider Active Star t: December 15, 2024 End: December 17, 2024 Dr. Ramonita Herron MD Other Provider Active Star t: December 15, 2024 End: December 17, 2024 Dr. Sunil Faye MD Other Provider Active Start : December 15, 2024 End: December 17, 2024 Dr. Marycarmen Marlow DO Attending Provider Active Start: December 15, 2024 End: December 17, 2024 Team Status: Active Member Role/Relationship Status Dates Dr. Marycarmen Rodriguez DO Primary Care Provider Active Start: December 16, 2024 Dr. Payal Weldon DO Emergency Provider Active Start: December 16, 2024 Dr. Ramonita Herron MD Admit Provider Active Star t: December 16, 2024 Dr. Ramonita Herron MD Other Provider Active Star t: December 16, 2024 Dr. Sunil Faye MD Other Provider Active Start : December 16, 2024 Dr. Marycarmen Marlow DO Other Provider Active S tart: December 16, 2024 Dr. Lance Rodriguez MD Attending Provider Active S tart: December 16, 2024 Team Status: Active Member Role/Relationship Status Dates Dr. Marycarmen Rodriguez DO Primary Care Provider Active Start: December 16, 2024 Dr. Payal Weldon DO Emergency Provider Active Start: December 16, 2024 Dr. Ramonita Herron MD Admit Provider Active Star t: December 16, 2024 Dr. Ramonita Herron MD Other Provider Active Star t: December 16, 2024 Dr. Sunil Faye MD Other Provider Active Start : December 16, 2024 Dr. Marycarmen Marlow DO Attending Provider Active Start: December 16, 2024 Dr. Marycarmen Marlow DO Other Provider Active S tart: December 16, 2024 Team Status: Active Member Role/Relationship Status Dates Dr. Marycarmen Rodriguez DO Primary Care Provider Active Start: December 17, 2024 Dr. Payal Weldon DO Emergency Provider Active Start: December 17, 2024 Dr. Ramonita Herron MD Admit Provider Active Star t: December 17, 2024 Dr. Ramonita Herron MD Other Provider Active Star t: December 17, 2024 Dr. Sunil Faye MD Other Provider Active Start : December 17, 2024 Dr. Marycarmen Marlow DO Attending Provider Active Start: December 17, 2024 Dr. Marycarmen Marlow DO Other Provider Active S tart: December 17, 2024 Team Status: Inactive Member Role/Relationship Status Dates Dr. Marycarmen Rodriguez DO Primary Care Provider Active Start: December 12, 2024 End: December 12, 2024 Gustabo Pérez [employer], [employer]-C Attending Provider Active S tart: December 12, 2024 End: December 12, 2024 Gustabo Pérez [employer]IM[employer], [employer]-C Referring Provider Active S tart: December 12, 2024 End: December 12, 2024 Goals (unrecognized section and content) Goals [...] BE BASED ON THE PRIMARY CLINICAL RECORDS. [employer] [facility]. provides no warranty or guarantee of the accuracy or completeness of information in this document.
[2024-12-24 01:05] LABS: Anion Gap 15 (5-15); BUN 17 mg/dL (4-19); BUN/Creat Ratio 9.9 RATIO (10-20); Calcium,Total 8.4 mg/dL (7.6-11.0); Carbon Dioxide 18.1 mmol/L (21.0-32.0); Chloride 106 mmol/L (98-108); Estimated Creatinine Clearance 41.59 ml/min (50-250); Glucose 125 mg/dL (70-99); Potassium 4.3 mmol/L (3.3-5.1)
--- NOTE | 2024-12-24 01:55 | EX.ED.DYSGE1 ---
HPI History of Present Illness Chief Complaint: GI Bleed Informant: patient, family and SNF Narrative Narrative: Patient is a 79-year-old male with past medical history of coronary artery disease status post stent placement hypertension hyperlipidemia COPD and [id number] diabetes. He was seen just a few days ago secondary to bright red blood per rectum. At that time he was worked up in the ER with blood work and CTA. However he was ultimately discharged home as he did not require transfusion and he was hemodynamically stable without further bouts of bleeding. According to the patient and the retirement he had 2 bowel movements this evening that were bright red in color and large. With the return of active bleeding and the fact he is on Brilinta he was sent to the ER for repeat evaluation. Patient states that he has abdominal cramping and confirms it was bright red blood per rectum not dark or black. He states he has continued to take his Brilinta as directed based on his recent cardiac stents. He denies any lightheaded dizziness or hematemesis. However with return of symptoms he presents for reevaluation [facility] Medical History Pericardial effusion Chest pain CKD (chronic kidney disease) stage 4, GFR 15-29 ml/min Central sleep apnea Diastolic heart failure Recent ST elevation myocardial infarction (STEMI) Chest pain History of acute inferior wall [place] Acute ST elevation myocardial infarction (STEMI) of inferior wall Anxiety Depression Diabetes Kidney disease Former smoker Atrial fibrillation Myocardial infarct Coronary artery disease Hypertension TIA (transient ischemic attack) Anemia Shortness of breath Unstable angina Fatigue Syncope Left-sided weakness History of COVID-19 Presence of stent in coronary artery (~08/31/22) Dyslipidemia Diabetes mellitus Chronic kidney disease Coronary artery disease Angina pectoris Abnormal PFT Chest heaviness Palpitations DEAN (dyspnea on exertion) Dizziness Leg pain Cough Exposure to COVID-19 virus Nonhealing nonsurgical wound with fat layer exposed Laceration without foreign body of scalp, subsequent encounter Acute left-sided weakness Essential hypertension CHF (congestive heart failure) History of melanoma Obesity (BMI 35.0-39.9 without comorbidity) CAD (coronary artery disease) 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.9) COPD (chronic obstructive pulmonary disease) TIA (transient ischemic attack) Obstructive sleep apnea Atherosclerotic heart disease [place] coronary artery w/angina pectoris Type 2 diabetes mellitus without complications Hyperlipidemia Obesity Home Medications ?Medication ?Instructions ?Recorded ?Last Taken ?Type aspirin 81 mg tablet,delayed 81 mg PO DAILY@0800 health 01/21/17 10/11/23 History release maintenance mirtazapine 15 mg tablet (Remeron) 15 mg PO QHS sleep 09/21/18 10/11/23 History cyanocobalamin (vitamin B-12) 1,000 mcg PO DAILY vitamin ##0 06/01/19 10/11/23 History 1,000 mcg capsule magnesium oxide 400 mg (241.3 mg 800 mg PO DAILY SUPPLEMENT 08/01/21 10/11/23 History magnesium) tablet cholecalciferol (vitamin D3) [address] 09/16/21 10/11/23 History mcg (1,000 unit) tablet fluoxetine 40 mg capsule 80 mg PO DAILY DEPRESSION 90 days 09/16/21 10/11/23 History #180 caps acetaminophen 325 mg tablet 650 mg PO Q6H PRN Pain 1-02/0910/12/23 Unknown History atorvastatin 40 mg tablet 40 mg PO QHS CHOLESTEROL #90 tabs 06/14/24 Unknown Rx nitroglycerin 0.4 mg sublingual 0.4 mg sublingual Q5-15M PRN CHEST 06/14/24 Unknown Rx tablet PAIN #25 tabs pantoprazole 40 mg tablet,delayed 40 mg PO DAILY GERD #90 tabs 06/14/24 Unknown Rx release amlodipine 5 mg tablet 5 mg PO QPM blood pressure 10/25/24 Unknown History metoprolol succinate 25 mg 25 mg PO DAILY blood pressure #30 10/25/24 Unknown Rx tablet,extended release 24 hr tabs ticagrelor 90 mg tablet (Brilinta) 90 mg PO BID #60 tabs 12/02/24 Unknown Rx empagliflozin 10 mg tablet 10 mg PO DAILY #90 tabs 12/06/24 Unknown Rx (Jardiance) spironolactone 25 mg tablet 25 mg PO DAILY #90 tabs 12/06/24 Unknown Rx cetirizine 10 mg tablet 5 mg PO DAILY Allergic Reaction 12/12/24 Unknown History colchicine 0.6 mg capsule 0.6 mg PO BID 90 days #0 caps 12/17/24 Unknown Rx nutrition tx glu 120 ml PO 4X/DAY #0 mL 12/17/24 Unknown Rx intol,lac-free,soy-fiber 0.06 gram-1.2 kcal/mL liquid (Glucerna 1.2 Ashwin) potassium chloride 10 mEq 30 meq (3 x 10 mEq) PO BID #0 tabs 12/17/24 Unknown Rx tablet,extended release(part/cryst) promethazine 12.5 mg tablet 12.5 mg PO Q6H PRN nausea and 12/17/24 Unknown Rx vomiting #1 TAB furosemide 40 mg tablet 40 mg PO Q OTHER DAY #90 tabs 12/21/24 Unknown Rx insulin degludec 100 unit/mL (3 10 unit subcut DAILY diabetes 12/24/24 Unknown History mL) subcutaneous pen levothyroxine 25 mcg tablet 25 mcg PO DAILY thyroid 12/24/24 Unknown History (Synthroid) ondansetron 4 mg disintegrating 4 mg PO Q6H PRN nausea and vomiting 12/24/24 Unknown History tablet ondansetron 4 mg disintegrating 4 mg PO TID nausea 12/24/24 Unknown History tablet Allergy/AdvReac Type Severity Reaction Status Date / Time No Known Allergies Allergy Verified 12/23/24 23:45 Family History Father Parkinsons disease Prostate cancer Mother Osteoporosis Surgical History Presence of coronary angioplasty implant and graft (11/27/24) History of tympanostomy tube placement History of percutaneous transluminal coronary angioplasty (08/18/18) History of herniorrhaphy Hx of cholecystectomy History of tonsillectomy History of prostatectomy Social History household members: spouse and none housing: retirement Smoking Status: Former smoker quit date: 05/03/98 pack-years: 50 how long ago did patient quit smokin years ago alcohol intake: never substance use type: does not use caffeine: Yes Type: coffee and tea Number of servings: 6 ROS ROS ED Constitutional Constitutional ED: Denies chills or fever(s) Eyes Eyes: Denies blurry vision or change in vision ENT ENT ED: Denies sore throat Cardiovascular Cardiovascular: Reports other Details: Negative syncope ; Denies chest pain, palpitations or racing heartbeat Respiratory/Chest Respiratory/Chest: Denies cough or dyspnea Gastrointestinal Gastrointestinal: Reports abdominal pain and other Details: Positive bright red blood per rectum ; Denies diarrhea, melena, nausea or vomiting Genitourinary Genitourinary ED: Denies hematuria Musculoskeletal Musculoskeletal: Denies myalgias Integumentary Denies rash Neurologic Neurologic: Denies headache(s) Hematologic/Lymphatic Hematologic/Lymphatic: Reports easy bleeding and easy bruising EXAM Physical Exam Const Vital Signs: 12/23/24 23:46 12/23/24 23:47 12/24/24 00:47 Temperature 97.9 F 97.9 F 97.9 F Temperature Source Oral Oral Oral Pulse Rate 73 73 68 Respiratory Rate 18 20 H 18 Blood Pressure 110/71 110/71 103/56 L Blood Pressure Mean 84 84 71 Pulse Ox 99 98 98 Oxygen Delivery Method Room Air Room Air Room Air 12/24/24 01:00 Temperature 97.9 F Temperature Source Oral Pulse Rate 58 L Respiratory Rate 18 Blood Pressure 104/72 Blood Pressure Mean 82 Pulse Ox 97 Oxygen Delivery Method Room Air Positive well nourished, well developed and obese General Appearance ED: well developed; Negative for pallor Nutritional Appearance: obese HEENT HEENT Narrative: Normocephalic atraumatic Eyes PERRL and EOMs intact bilaterally General Eye ED: Negative for pale conjunctiva or scleral icterus Neck supple Resp normal respiratory effort Resp Narrative: Breath sounds are diminished throughout with diffuse mild expiratory wheezing and faint rhonchi in the bilateral bases consistent with history of COPD No signs of respiratory distress Cardio regular rate and regular rhythm Rate: other Other Details: Radial and carotid pulses are equal and symmetric GI non-distended and no masses GI Narrative: Abdomen is soft and nondistended with normal active bowel sounds. There is mild pain with palpation in the left lower quadrant but no voluntary guarding or rigidity or pulsatile mass. No fluid wave noted. No peritoneal signs Auscultation: normoactive bowel sounds Palpation: soft Narrative: Rectal exam displays nonbleeding nonthrombosed hemorrhoids. No anal fissures noted. Rectal tone is normal. Stool is mucousy brown in color with faint streaks of bright red blood and is Hemoccult positive Extremity Extremity Narrative: +1 pitting edema to the bilateral lower extremities that is equal and symmetric Neuro oriented x3, CN's II-XII intact bilaterally and no sensory deficits noted Sensorium / Orientation: alert Motor Exam: strength 5/5 throughout Psych mental status grossly normal Skin no rashes or lesions noted Skin Narrative: Capillary refill is less than 3 seconds General Skin Exam: Negative for jaundice or pallor MDM MDM MDM Narrative Medical decision making narrative: Patient arrived to the ER with stable vitals. He is on Brilinta but not Coumadin Xarelto Eliquis or Pradaxa. Chart review reveals that his hemoglobin from 8- was 12.2 and it is 11.8 today which is not a significant drop. As he had a CTA recently that showed diverticulosis but no signs of acute bleeding and he does have chronic kidney injury I do not want to expose him to further dye load and potential worsening of his kidney function so I will hold off on a CTA today. His BUN is normal going against an upper GI bleed and his lactic acid is only slightly up by 0.1 going against acute ischemia. However as the patient cannot stop his Brilinta secondary to his recent stents and according to patient and retirement he has had recurrent bouts of large bloody bowel movement I do feel that admitting him for continued observation with GI consultation and possible inpatient colonoscopy is the safest option. Therefore the case was discussed with the hospitalist who agrees to accept the patient to her service for continued monitoring and care. History & Record Review Discussion w/independent historian: Patient and Family Lab Data Attestation: I reviewed the patient's lab results. Labs: Laboratory Results - last 24 hr 12/24/24 12/24/24 00:00 00:15 WBC 8.9 RBC 3.99 L Hgb 11.8 L Hct 35.7 L MCV 89.5 MCH 29.6 MCHC 33.1 RDW Std Deviation 45.5 H RDW Coeff of Adrian 14.2 Plt Count 139 L MPV 12.9 H Immature Gran % (Auto) 0.300 Neut % (Auto) 77.4 H Lymph % (Auto) 12.2 L Hartley % (Auto) 9.1 Eos % (Auto) 0.8 Baso % (Auto) 0.2 Absolute Neuts (auto) 6.9 Absolute Lymphs (auto) 1.09 Nucleated RBC % 0 PT 13.5 INR 1.0 APTT 27.6 Sodium 139 Potassium 4.3 Chloride 106 Carbon Dioxide 18.1 L Anion Gap 15 BUN 17 Creatinine 1.67 H Estim Creat Clear Calc 41.59 L Est GFR (MDRD) Non-Af 41 L BUN/Creatinine Ratio 9.9 L Glucose 125 H Lactic Acid 2.1 H* Calcium 8.4 Magnesium 1.7 Management Discussion w/another healthcare provider: Hospitalist Discharge Plan Dx/Rx/DC Orders Clinical Impression: GI (gastrointestinal bleed), COPD (chronic obstructive pulmonary disease), CHF (congestive heart failure), Obesity, Hyperlipidemia, Coronary artery disease, Diverticulosis Disposition Disposition: Acute Care [facility] Discharge Date/Time: 12/24/24 02:38
--- NOTE | 2024-12-24 01:58 | PCM.HP.STD ---
HPI - General General Date of Admission: 12/24/24 Date of Service: 12/24/24 Chief Complaint: GI bleeding HPI Narrative The patient is a 79 y/o M w/ PMHx: Obesity, COPD/asthma, Former tobacco use, Hx TIA, PAF, CAD, CKD stage IV, Diabetes mellitus type II, HFpEF, Anxiety and Depression recently discharged 12/17/2024 following evaluation and treatment of chest pain secondary to acute pericarditis and prior to this admission 12/03/24-12/06/24 secondary to coronary vasospasm following recent inferior STEMI as well as SUSAN on CKD with initial STEMI presentations 11/30/24 with demonstrated subacute stent thrombosis the proximal RCA status post 1 angioplasty as well as thrombus embolization of the right posterolateral ventricle branch status post 2 new drug-eluting stents with Plavix discontinued and transition to Brilinta at that time with recent ED evaluation 12/20/2024 secondary to bright red blood per rectum noted to be in his stools for nearly 1 week with evaluation at that time discussions per ED physician with cardiology attributing the GI bleed secondary to recent colchicine for the pericarditis which was stopped with plan follow-up outpatient with gastroenterology now re-presenting to the [facility] [place] ED on 12/24/2024 with continued bright red blood per rectum mixed with the stool with concerns for increasing amount per SNF with no associated pain nor any current complaints of lightheadedness or dizziness, dyspnea or chest pain; however, he does report at the SNF he would occasional after notable exertion have lightheadedness which would kelvin with rest. He has had ongoing issues with nausea requiring antiemetics constantly over the last 2-3 weeks. Workup in the ED included T97.9, heart rate 73, BP 110/71, respiratory rate 18, 99% on room air with most recent repeat vitals T97.9, heart rate 58, BP 104/72, respiratory rate 18, 97% on room air, CBC with WC 8.9, hemoglobin 11.8, MCV 89.5, platelet 139 without marked shift, unremarkable coags, BMP with, lactate 8.1, BUN/creatinine 17/1.67, GFR 41. [facility] Medical History Pericardial effusion Chest pain CKD (chronic kidney disease) stage 4, GFR 15-29 ml/min Central sleep apnea Diastolic heart failure Recent ST elevation myocardial infarction (STEMI) Chest pain History of acute inferior wall [place] Acute ST elevation myocardial infarction (STEMI) of inferior wall Anxiety Depression Diabetes Kidney disease Former smoker Atrial fibrillation Myocardial infarct Coronary artery disease Hypertension TIA (transient ischemic attack) Anemia Shortness of breath Unstable angina Fatigue Syncope Left-sided weakness History of COVID-19 Presence of stent in coronary artery (~08/31/22) Dyslipidemia Diabetes mellitus Chronic kidney disease Coronary artery disease Angina pectoris Abnormal PFT Chest heaviness Palpitations DEAN (dyspnea on exertion) Dizziness Leg pain Cough Exposure to COVID-19 virus Nonhealing nonsurgical wound with fat layer exposed Laceration without foreign body of scalp, subsequent encounter Acute left-sided weakness Essential hypertension CHF (congestive heart failure) History of melanoma Obesity (BMI 35.0-39.9 without comorbidity) CAD (coronary artery disease) 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.9) COPD (chronic obstructive pulmonary disease) TIA (transient ischemic attack) Obstructive sleep apnea Atherosclerotic heart disease [place] coronary artery w/angina pectoris Type 2 diabetes mellitus without complications Hyperlipidemia Obesity Home Medications ?Medication ?Instructions ?Recorded ?Last Taken ?Type aspirin 81 mg tablet,delayed 81 mg PO DAILY@0800 health 01/21/17 10/11/23 History release maintenance mirtazapine 15 mg tablet (Remeron) 15 mg PO QHS sleep 09/21/18 10/11/23 History cyanocobalamin (vitamin B-12) 1,000 mcg PO DAILY vitamin ##0 06/01/19 10/11/23 History 1,000 mcg capsule magnesium oxide 400 mg (241.3 mg 800 mg PO DAILY SUPPLEMENT 08/01/21 10/11/23 History magnesium) tablet cholecalciferol (vitamin D3) [address] 09/16/21 10/11/23 History mcg (1,000 unit) tablet fluoxetine 40 mg capsule 80 mg PO DAILY DEPRESSION 90 days 09/16/21 10/11/23 History #180 caps acetaminophen 325 mg tablet 650 mg PO Q6H PRN Pain 1-02/0910/12/23 Unknown History atorvastatin 40 mg tablet 40 mg PO QHS CHOLESTEROL #90 tabs 06/14/24 Unknown Rx nitroglycerin 0.4 mg sublingual 0.4 mg sublingual Q5-15M PRN CHEST 06/14/24 Unknown Rx tablet PAIN #25 tabs pantoprazole 40 mg tablet,delayed 40 mg PO DAILY GERD #90 tabs 06/14/24 Unknown Rx release amlodipine 5 mg tablet 5 mg PO QPM blood pressure 10/25/24 Unknown History metoprolol succinate 25 mg 25 mg PO DAILY blood pressure #30 10/25/24 Unknown Rx tablet,extended release 24 hr tabs ticagrelor 90 mg tablet (Brilinta) 90 mg PO BID #60 tabs 12/02/24 Unknown Rx empagliflozin 10 mg tablet 10 mg PO DAILY #90 tabs 12/06/24 Unknown Rx (Jardiance) spironolactone 25 mg tablet 25 mg PO DAILY #90 tabs 12/06/24 Unknown Rx cetirizine 10 mg tablet 10 mg PO DAILY Allergic Reaction 12/12/24 Unknown History colchicine 0.6 mg capsule 0.6 mg PO BID 90 days #0 caps 12/17/24 Unknown Rx nutrition tx glu 120 ml PO 4X/DAY #0 mL 12/17/24 Unknown Rx intol,lac-free,soy-fiber 0.06 gram-1.2 kcal/mL liquid (Glucerna 1.2 Ashwin) potassium chloride 10 mEq 30 meq (3 x 10 mEq) PO BID #0 tabs 12/17/24 Unknown Rx tablet,extended release(part/cryst) promethazine 12.5 mg tablet 12.5 mg PO Q6H PRN nausea and 12/17/24 Unknown Rx vomiting #1 TAB furosemide 40 mg tablet 40 mg PO Q OTHER DAY #90 tabs 12/21/24 Unknown Rx Allergy/AdvReac Type Severity Reaction Status Date / Time No Known Allergies Allergy Verified 12/23/24 23:45 Family History Father Parkinsons disease Prostate cancer Mother Osteoporosis Surgical History Presence of coronary angioplasty implant and graft (11/27/24) History of tympanostomy tube placement History of percutaneous transluminal coronary angioplasty (08/18/18) History of herniorrhaphy Hx of cholecystectomy History of tonsillectomy History of prostatectomy Social History household members: spouse and none housing: snf Smoking Status: Former smoker quit date: 05/03/98 pack-years: 50 how long ago did patient quit smokin years ago alcohol intake: never substance use type: does not use caffeine: Yes Type: coffee and tea Number of servings: 6 ROS ROS Narrative Admission Review of Systems: CONSTITUTIONAL: No weight loss, fever, chills, + weakness or fatigue. HEENT: + Occasional episodes of lightheadedness, near syncopal type sensation. Eyes: No visual loss, blurred vision, double vision or yellow sclerae. Ears, Nose, Throat: No hearing loss, sneezing, congestion, runny nose or sore throat. SKIN: No rash or itching, lesions, wounds except + occasional stage ecchymoses, abrasions. CARDIOVASCULAR: + Occasional episodes of lightheadedness, near syncopal type sensation, chronic lower extremity edema but currently not severe. No chest pain, chest pressure or chest discomfort, palpitations, orthopnea. RESPIRATORY: No shortness of breath, cough or sputum, wheezing, hemoptysis. GASTROINTESTINAL: + Persistent decreased appetite, episodes of nausea and emesis, bright red blood per rectum. No diarrhea, severe constipation, abdominal pain or melanotic stools reported. GENITOURINARY: No dysuria, frequency, urgency or retention. NEUROLOGICAL: + Occasional episodes of lightheadedness, near syncopal type sensation with exertion. No headache, paralysis, ataxia, numbness or tingling in the extremities, focal weakness, change in bowel or bladder control, seizure. MUSCULOSKELETAL: No muscle, back pain, joint pain or stiffness. HEMATOLOGIC: + Chronic anemia, easy bleeding/bruising, current bright red blood per rectum intermittently as noted. LYMPHATICS: No enlarged nodes. No history of splenectomy. PSYCHIATRIC: + History of anxiety and depression. ENDOCRINOLOGIC: No reports of sweating, cold or heat intolerance. No polyuria or polydipsia. ALLERGIES: + History of asthma, allergic rhinitis. Vital Signs Vital Signs Vital Signs: 12/23/24 23:46 12/23/24 23:47 12/24/24 00:47 Temperature 97.9 F 97.9 F 97.9 F Temperature Source Oral Oral Oral Pulse Rate 73 73 68 Respiratory Rate 18 20 H 18 Blood Pressure 110/71 110/71 103/56 L Blood Pressure Mean 84 84 71 Pulse Ox 99 98 98 Oxygen Delivery Method Room Air Room Air Room Air 12/24/24 01:00 Temperature 97.9 F Temperature Source Oral Pulse Rate 58 L Respiratory Rate 18 Blood Pressure 104/72 Blood Pressure Mean 82 Pulse Ox 97 Oxygen Delivery Method Room Air Weight Weight: 218 lb 0.595 oz Body Mass Index (BMI) 32.1 Physical Exam Narrative Physical Examination: General: Awake, alert, oriented x 3 and cooperative, seated upright in the ED bed, fatigued but no acute distress. Skin: Normal color, normal turgor, no icterus, no cyanosis except significant very stage II ecchymoses, abrasions, mild bilateral lower extremity venous stasis skin changes. HEENT: AT/NC, EOMI, PERRLA, mildly dry MM, no carotid bruits or JVD noted. Lungs: Mildly diminished, greater bases, poor effort, no rales, ronchi or wheezing. Heart: Regular rate and rhythm; no gallop, rub audible. Abdomen: Soft, obese, NTTP, ND, hyperactive BS, no appreciated HSM. Extremities: No cyanosis, no clubbing, mild ankle distal manning not markedly pitting edema present. Neurological: Patient awake, alert, oriented as noted, cognitive function intact; pupils equally reactive to light and accommodation, cranial nerves grossly normal, moving all 4 extremities, no focal deficits, strength moderately to severely globally decreased Psychiatric: Affect appears fatigued otherwise normal, no acute evidence of depressive or anxiety feelings but does have underlying history. Results Lab / Micro Data 12/24/24 00:00 12/24/24 00:00 Labs: Laboratory Results - last 24 hr 12/24/24 00:00: WBC 8.9, RBC 3.99 L, Hgb 11.8 L, Hct 35.7 L, MCV 89.5, MCH 29.6, MCHC 33.1, RDW Std Deviation 45.5 H, RDW Coeff of Adrian 14.2, Plt Count 139 L, MPV 12.9 H, Immature Gran % (Auto) 0.300, Neut % (Auto) 77.4 H, Lymph % (Auto) 12.2 L, Angelina % (Auto) 9.1, Eos % (Auto) 0.8, Baso % (Auto) 0.2, Absolute Neuts (auto) 6.9, Absolute Lymphs (auto) 1.09, Nucleated RBC % 0, PT 13.5, INR 1.0, APTT 27.6, Sodium 139, Potassium 4.3, Chloride 106, Carbon Dioxide 18.1 L, Anion Gap 15, BUN 17, Creatinine 1.67 H, Estim Creat Clear Calc 41.59 L, Est GFR (MDRD) Non-Af 41 L, BUN/Creatinine Ratio 9.9 L, Glucose 125 H, Calcium 8.4 12/24/24 00:15: Lactic Acid 2.1 H* Micro: Microbiology 12/24/24 00:58 Stool Stool Occult Blood (JESSICA) - Final Occult Blood Positive Assessment & Plan Assessment/Plan (1) BRBPR (bright red blood per rectum): PLAN: Plan The patient is a 79 y/o M w/ PMHx: Obesity, COPD/asthma, Former tobacco use, Hx TIA, PAF, CAD, CKD stage IV, Diabetes mellitus type II, HFpEF, Anxiety and Depression recently discharged 12/17/2024 following evaluation and treatment of chest pain secondary to acute pericarditis and prior to this admission 12/03/24-12/06/24 secondary to coronary vasospasm following recent inferior STEMI as well as SUSAN on CKD with initial STEMI presentations 11/30/24 with demonstrated subacute stent thrombosis the proximal RCA status post 1 angioplasty as well as thrombus embolization of the right posterolateral ventricle branch status post 2 new drug-eluting stents with Plavix discontinued and transition to Brilinta at that time with recent ED evaluation 12/20/2024 secondary to bright red blood per rectum noted to be in his stools for nearly 1 week with evaluation at that time discussions per ED physician with cardiology attributing the GI bleed secondary to recent colchicine for the pericarditis which was stopped with plan follow-up outpatient with gastroenterology now re-presenting to the [facility] [place] ED on 12/24/2024 with continued bright red blood per rectum. #1. Acute GI Bleed w/ resultant Acute Blood Loss Anemia with mild lactic acidosis, suspect secondary to hypovolemia with bleed with recent history of decreased appetite, episodes of nausea and emesis/GI upset over the last 2 to 3 weeks potentially related: Admission hemoglobin 11.8, prior to this 12/21/24 Hgb 12.2 and prior to this 12/20/24 Hgb 13.8, baseline appears 13 range, will admit to PCU, will maintain on judiciously IVFs, obtain serial H+Hs, maintain on continuous PPI, NPO status with GI consulted. Will have ongoing antiemetics as needed. PT/OT/CM consulted for discharge planning. #2. Thrombocytopenia, new: Admission platelet 139, previous to this on 12/21/2024 platelets 145, recent STEMI 11/30/2024 transition from aspirin/Plavix to Brilinta/aspirin potentially related, unfortunately given recent PCI will need to continue dual antiplatelet therapy and continue to closely monitor hemoglobin pending GI evaluation, continue to monitor platelets. #3. CAD: s/p recent STEMI, readmision following with concern for vasospasms causing EKG changes, 11/30/24 with demonstrated subacute stent thrombosis the proximal RCA status post 1 angioplasty as well as thrombus embolization of the right posterolateral ventricle branch status post 2 new drug-eluting stents with Plavix discontinued and transition to Brilinta and prior to this notable history PCI 2006, 2007, 2018 in addition to 2019. Will continue cautiously aspirin, Rilutek, statin, holding all hypertensive regimen given #1 with lower BP as noted. #4. Recent pericarditis, acute: Recently in the ED and concerns per ED physician with GI bleed admitted discussed with cardiology with discontinuation of colchicine at that time, as noted will continue dual antiplatelet therapy given significant recent intervention and risk with close monitoring of hemoglobin. #5. HFpEF: Most recent echocardiogram noted 12/15/2024 with normal LV size with mild concentric LV hypertrophy and EF 48%, mid anterior inferior basal segment moderately severely hypokinetic, normal RV size, normal systolic function, small less than 1.0 cm pericardial effusion. As noted given recent intervention will cautiously continue on aspirin and Brilinta, continue statin, holding all hypertensive regimen, will judiciously hydrate only as needed, monitor for overload of PRBC administration becomes necessary. #6. Chronic Kidney Disease Stage IV per previous GFR trend: Admission BUN/Cr 17/1.67, GFR 41, baseline renal function has significantly vacillated in previous to current presentation was primarily 1.8-2.5, repeat BMP in AM. #7. Chronic COPD/asthma: Per current list does not appear to be on regimen, will maintain on PRN albuterol, HOB, IS parameters. #8. Diabetes mellitus type II: Hold oral home regimen, n.p.o. status, maintain on every 6 hours accu checks w/ ISS. #9. Hypertension: Given low normal BP will temporally hold all hypertensive regimen, add back once clinically appropriate. #10. Hyperlipidemia: Will continue patient on statin therapy. #11. Allergic rhinitis: Will continue patient home cetirizine regimen. #12. Former tobacco usage: Encourage continued tobacco cessation. #13. Anxiety and depression: Will continue patient home fluoxetine and mirtazapine regimen. #14. MATTHEW: We use supplemental oxygen, hold on CPAP usage given history of issues with nausea and occasional emesis over the last 2 to 3 weeks potentially related with #1. #15. GERD: Will maintain on IV PPI. #16. Obesity: Weight loss and lifestyle changes encouraged. #17. DVT prophylaxis: SCDs. #18. CODE status: Patient HCPOA is his who is present and living will is currently in place. Discussed CODE status at length including difference between FULL code, DNR-CCA and DNR-CC status. Following discussions about the differences in these status, requested Full Code status. Advanced Care Planning Face to Face Time: 16 minutes. Charges/Coding Visit Charges Inpatient E&M: 72299 Init Hosp L3 Procedures Hospitalists Procedures: 06314 Advncd Care Plan 30 Min
--- OUTSIDE RECORDS SUMMARY | 2024-12-24 02:09 | XMS RPT_ITS | CCD ---
Author Organization [facility] Care Team Providers Care [employer] Attorney Name Role Phone Unavailable Unavailable Unavailable Marycarmen Rodriguez DO Primary Care Provider [phone] Marycarmen Rodriguez DO Primary Care Provider [phone] MIN HOWARD Referring Unavailable MARYCARMEN RODRIGUEZ Primary [...] Care Unavailable FERNANDA ACUÑA Referring Unavailable SCHWFERNANDA OZUNA Attending Unavailable MARYCARMEN RODRIGUEZ Primary Care Unavailable MARYCARMEN RODRIGUEZ Admitting Unavailable ELADIO INGRAM Attending Unavaila ble MARYCARMEN RODRIGUEZ Referring Unavailable MARYCARMEN RODRIGUEZ Primary Care Unavailable ELADIO INGRAM Attending Unavaila MARYCARMEN Pena Primary Care Unavailable Dr. Marycarmen Rodriguez Primary Care Provider [phone] Dr. Marycarmen Rodriguez Referring Provider [phone] Mike PEREA, YRN Laguna Attending Provider Dr. Darnell Corral Attending Provider Mike THREAT MONITORING ANALYST, 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 Luz Elena Referring Provider Mike THREAT MONITORING ANALYST, 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 Luz Elena Other Provider [phone] Dr. John Palacios Attending Provider Mike THREAT MONITORING ANALYST, 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 Luz Elena Referring Provider Dr. Marycarmen Rodriguez Primary Care Provider [phone] Dr. Marycarmne Rodriguez Referring Provider Mike THREAT MONITORING ANALYST, 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 Luz Elena Attending Provider Dr. Zen [...] Dr. Marycarmen Rodriguez Referring Provider Dr. Jose Suárez Attending Provider Dr. Marycarmen Rodriguez Primary Care Provider [phone] Dr. Jose Suárez Admit Provider Dr. Jose Suárez Referring Provider Jose Armando, Dr. Garcia Other Provider Dr. Alex Sanon Referring Provider Unavailable Dr. Pardeep Hall Emergency Provider Dr. Alka Leo Admit Provider Dr. Alka Leo Attending Provider Dr. Alka Leo Other Provider Dr. Shaan Santos Attending Provider Dr. Shaan Santos Other Provider Dr. Aimee Cummins Attending Provider Mike THREAT MONITORING ANALYST, 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 Luz Elena Attending Provider Adina Vallejo Attending Provider Unavailable Dr. Jose Suárez Attending Provider Dr. Marcin Araujo Attending Provider Dr. Alka Leo Referring Provider Dr. Marycarmen Rodriguez Referring Provider Dr. Marycarmen Rodriguez Primary Care Provider Adina Vallejo Attending Provider Unavailable Dr. Jose Suárez Attending Provider Dr. Marycarmen Rodriguez DO Primary Care Provider Dr. Marycarmen Rodriguez DO Referring Provider Dr. Jose Suárez MD Attending Provider Dr. Marycarmen Rodriguez DO Attending Provider Beto 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, Gustabo Gao Attending Provider Roof 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, Gustabo H Referring Provider Justina 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Marni Attending Provider Justina 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, Marni Referring Provider Dr. Marycarmen Rodriguez DO Primary Care Provider Dr. Marycarmen Rodriguez DO Referring Provider Dr. Joes Suárez MD Attending Provider Justina 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, Marni Other Provider Dr. Zen East DO Attending Provider Dr. Marycarmen Rodriguez DO Primary Care Provider Jennifer CATHERINE Dr. Marycarmen Referring Provider Jennifer DO, Dr. Dow Attending Provider Jennifer DO, Dr. Dow Primary Care Provider Jennifer DO, Dr. Dow Referring Provider Brendon 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, Maren Clarke Attending Provider Brendon 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, Maren Clarke Referring Provider [facility] , Dr. Zaldivar Attending Provider Pauline PALOMO, Dr. Guy Attending Provider Pauline PALOMO, Dr. Guy Referring Provider Roof 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, Gustabo Gao Other Provider Roof 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, Gustabo Gao Attending Provider Jennifer DO, Dr. Dow Primary Care Provider Jennifer DO, Dr. Dow Attending Provider Jennifer DO, Dr. Dow Primary Care Provider Horn 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, Marni Attending Provider Horn 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, Marni Referring Provider Jennifer DO, Dr. Dow Referring Provider Roof 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, Gustabo Gao Referring Provider Jennifer PALOMO, Dr. Lucas Attending Provider Unavail bear Suárez MD, Dr. Garcia Attending Provider JenniferDr. Marycarmen vera DO Primary Care Provider Horn 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, Marni Attending Provider Justina 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, Marni Referring Provider JenniferDr. Marycarmen vera DO Referring Provider Brendon 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Maren Attending Provider Brendon 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, Maren Clarke Referring Provider JenniferDr. Marycarmen shetty DO Attending Provider Pauline PALOMO, Dr. Guy Attending Provider Pauline PALOMO, Dr. Guy Referring Provider Roof 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, Gustabo H Other Provider Roof 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, Gustabo H Attending Provider Roof 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, Gustabo H Referring Provider Jennifer PALOMO, Dr. Lucas Attending Provider Unavailab bear Suárez MD, Dr. Garcia Attending Provider Isael Bernabe MD Emergency Provider Jose Armando PALOMO, Dr. Garcia Admit Provider Jose Armando PALOMO, Dr. Garcia Referring Provider Keyana CATHERINE, Dr. Rosario Admit Provider Dr. Abraham Ridley DO Attending Provider Dr. Marycarmen Rodriguez DO Primary Care Provider Horn 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, Marni Attending Provider Horn 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, Marni Referring Provider Isael Bernabe MD Attending Provider Dr. Abraham Ridley DO Other Provider Dr. Nickie Danielson DO Attending Provider [phone] Elvis Olvera MD Other Provider Unavailable Marky PALOMO, Dr. Rutherford Other Provider Faye Kingsley MD Other Provider Unavailable Dr. Petrona Vargas DO Other Provider [phone] Cain PALOMO, Dr. Harvey Other Provider [phone] Sissy PALOMO, Dr. Shetty Other Provider Carrington PALOMO, Dr. Alcala Other Provider Nasim PALOMO, Dr. Whitaker Other Provider Dr. Seymour John MD Other Provider [phone] Willie PALOMO, Dr. Roldan Other Provider Xena PALOMO, Chrissy Other Provider Florentino PALOMO, Dr. Bynum Other Provider Brai PALOMO, Dr. Burleson Other Provider Cher PALOMO, Dr. Vera Other Provider [phone] Arnav PALOMO, Dr. Fermin Hernandez Other Provider Ken PALOMO, Dr. Alvarado Other Provider [phone] Joana PALOMO, Dr. Romero Other Provider Annabelle PALOMO, Dr. Collazo Other Provider Jagjit PALOMO, Dr. Acevedo Other Provider Unavailable Kayli PALOMO, Yousef Other Provider Unavailable Keyana CATHERINE, Dr. Rosario Attending Provider Jagjit CATHERINE, Dr. Fu Other Provider Gayle PALOMO, Dr. Burch Attending Provider [phone] Hilton PALOMO, Dr. Iqbal Emergency Provider [phone] Tatiana PALOMO, Dr. Arevalo Referring Provider [phone] Work Phone: [facility] 03-27-2024 10:17-0500 Diastolic blood pressure 79 mm[Hg] Dr. Marycarmen Rodriguez DO Work Phone: [facility] 03-27-2024 10:17-0500 Heart rate 67 /min Dr. Marycarmen Rodriguez DO Work Phone: [facility] 03-27-2024 10:17-0500 Respiratory rate 18 /min Dr. Marycarmen Rodriguez DO Work Phone: [facility] 03-27-2024 10:17-0500 Systolic blood pressure 134 mm[Hg] Dr. Marycarmen Rodriguez DO Work Phone: [facility] 03-20-2024 08:28-0500 Body mass index (BMI) [Ratio] 37.5 kg/m2 Dr. Marycarmen Rodriguez DO Work Phone: [facility] 03-20-2024 08:28-0500 Body weight 112.[address] Marycarmen Rodriguez DO Work Phone: [facility] 03-20-2024 08:28-0500 Diastolic blood pressure 89 mm[Hg] Dr. Marycarmen Rodriguez DO Work Phone: [facility] 03-20-2024 08:28-0500 Heart rate 61 /min Dr. Marycarmen Rodriguez DO Work Phone: [facility] 03-20-2024 08:28-0500 Respiratory rate 18 /min Dr. Marycarmen Rodriguez DO Work Phone: [facility] 03-20-2024 08:28-0500 Systolic blood pressure 141 mm[Hg] Dr. Marycarmen Rodriguez DO Work Phone: [facility] 12-21-2022 07:51-0400 Body height 172.[address] Marycarmen Rodriguez Work Phone: [facility] 12-21-2022 07:51-0400 Body weight 85.[address] Marycarmen Rodriguez Work Phone: [facility] 12-18-2022 08:27-0400 Body mass index (BMI) [Ratio] 28.7 kg/m2 Dr. Marycarmen Rodriguez Work Phone: [facility] 12-15-2022 13:03-0400 Body mass index (BMI) [Ratio] 28.7 kg/m2 Dr. Marycarmen Rodriguez Work Phone: [facility] 12-15-2022 13:03-0400 Body weight 85.[address] Marycarmen Rodriguez Work Phone: [facility] 12-15-2022 13:03-0400 Diastolic blood pressure 92 mm[Hg] Dr. Marycarmen Rodriguez Work Phone: [facility] 12-15-2022 13:03-0400 Heart rate 72 /min Dr. Marycarmen Rodriguez Work Phone: [facility] 12-15-2022 13:03-0400 Respiratory rate 16 /min Dr. Marycarmen Rodriguez Work Phone: [facility] 12-15-2022 13:03-0400 Systolic blood pressure 156 mm[Hg] Dr. Marycarmen Rodriguez Work Phone: [facility] 10-13-2022 10:59-0400 Body height 172.72 cm Marycarmen [facility] 10-13-2022 10:59-0400 Body mass index (BMI) [Ratio] 25.4 kg/m2 [facility] 10-13-2022 10:59-0400 Body weight 75.74 kg Marycarmen [facility] 10-13-2022 10:59-0400 Diastolic blood pressure 75 mm[Hg] [facility] 10-13-2022 10:59-0400 Heart rate 65 /min [facility] 10-13-2022 10:59-0400 Respiratory rate 18 /min [facility] 10-13-2022 10:59-0400 SaO2% (BldA) [Mass fraction] 94 % [facility] 10-13-2022 10:59-0400 Systolic blood pressure 143 mm[Hg] [facility] 09-21-2022 15:30-0400 Body mass index (BMI) [Ratio] 34.7 kg/m2 [facility] 09-21-2022 15:27-0400 Body temperature 98 [degF] [facility] 09-21-2022 15:27-0400 Diastolic blood pressure 84 mm[Hg] [facility] 09-21-2022 15:27-0400 Heart rate 79 /min [facility] 09-21-2022 15:27-0400 Respiratory rate 17 /min [facility] 09-21-2022 15:27-0400 SaO2% (BldA) [Mass fraction] 96 % Marycarmen [facility] 09-21-2022 15:27-0400 Systolic blood pressure 143 mm[Hg] Marycarmen Jennifer [facility] 09-21-2022 06:25-0400 Body weight 103.6 kg Marycarmen Jennifer [facility] 09-19-2022 01:30-0400 Inhaled oxygen concentration 21 % Marycarmen [facility] 09-01-2022 09:59-0400 Diastolic blood pressure 68 mm[Hg] Marycarmen Jennifer [facility] 09-01-2022 09:59-0400 Heart rate 49 /min Marycarmen [facility] 09-01-2022 09:59-0400 Systolic blood pressure 127 mm[Hg] Marycarmen [facility] 09-01-2022 09:57-0400 Body temperature 97.9 [degF] Marycarmen [facility] 09-01-2022 09:57-0400 Respiratory rate 18 /min Marycarmen Jennifer [facility] 09-01-2022 09:57-0400 SaO2% (BldA) [Mass fraction] 93 % Marycarmen [facility] 09-01-2022 04:08-0400 Body mass index (BMI) [Ratio] 35.2 kg/m2 Marycarmen [facility] 09-01-2022 04:08-0400 Body weight 108.2 kg Marycarmen Jennifer [facility] 08-31-2022 11:42-0400 Body height 175.26 cm Marycarmen Jennifer [facility] 08-19-2022 10:01-0400 Body height 175.26 cm Marycarmen Jennifer [facility] 08-19-2022 10:01-0400 Body mass index (BMI) [Ratio] 35.4 kg/m2 Marycarmen Jennifer [facility] 08-19-2022 10:01-0400 Body weight 109.03 kg Marycarmen Jennifer [facility] 04-19-2023 10:01-0400 Diastolic blood pressure 79 mm[Hg] Marycarmen SWAIN [facility] 08-19-2022 10:01-0400 Heart rate 62 /min Marycarmen SWAIN [facility] 08-19-2022 10:01-0400 Respiratory rate 18 /min Marycarmen SWAIN [facility] 08-19-2022 10:01-0400 Systolic blood pressure 144 mm[Hg] Marycarmen SWAIN [facility] 04-16-2022 12:43-0500 Body height 175.[address] Marycarmen Rodriguez Work Phone: [facility] 04-16-2022 12:43-0500 Body mass index (BMI) [Ratio] 35.2 kg/m2 Dr. Marycarmen Rodriguez Work Phone: [facility] 04-16-2022 12:43-0500 Body temperature 97 [degF] Dr. Marycarmen Rodriguez Work Phone: [facility] 04-16-2022 12:43-0500 Body weight 108.[address] Marycarmen Rodriguez Work Phone: [facility] 04-16-2022 12:43-0500 Diastolic blood pressure 78 mm[Hg] Dr. Marycarmen Rodriguez Work Phone: [facility] 04-16-2022 12:43-0500 Heart rate 66 /min Dr. Marycarmen Rodriguez Work Phone: [facility] 04-16-2022 12:43-0500 Respiratory rate 18 /min Dr. Marycarmen Rodriguez Work Phone: [facility] 04-16-2022 12:43-0500 SaO2% (BldA) [Mass fraction] 94 % Dr. Marycarmen Rodriguez Work Phone: [facility] 04-16-2022 12:43-0500 Systolic blood pressure 125 mm[Hg] Dr. Marycarmen Rodriguez Work Phone: [facility] 04-14-2022 10:27-0500 Body mass index (BMI) [Ratio] 35.2 kg/m2 Dr. Marycarmen Rodriguez Work Phone: [facility] 04-14-2022 10:27-0500 Body weight 108.[address] Marycarmen Rodriguez Work Phone: [facility] 04-14-2022 10:27-0500 Diastolic blood pressure 68 mm[Hg] Dr. Marycarmen Rodriguez Work Phone: [facility] 04-14-2022 10:27-0500 Heart rate 64 /min Dr. Marycarmen Rodriguez Work Phone: [facility] 04-14-2022 10:27-0500 Respiratory rate 18 /min Dr. Marycarmen Rodriguez Work Phone: [facility] 04-14-2022 10:27-0500 Systolic blood pressure 130 mm[Hg] Dr. Marycarmen Rodriguez Work Phone: [facility] 03-27-2022 13:25-0500 Body temperature 97.9 [degF] Dr. Marycarmen Rodriguez Work Phone: [facility] 03-27-2022 13:25-0500 Diastolic blood pressure 86 mm[Hg] Dr. Marycarmen Rodriguez Work Phone: [facility] 03-27-2022 13:25-0500 Heart rate 86 /min Dr. Marycarmen Rodriguez Work Phone: [facility] 03-27-2022 13:25-0500 Respiratory rate 14 /min Dr. Marycarmen Rodriguez Work Phone: [facility] 03-27-2022 13:25-0500 SaO2% (BldA) [Mass fraction] 96 % Dr. Marycarmen Rodriguez Work Phone: [facility] 03-27-2022 13:25-0500 Systolic blood pressure 134 mm[Hg] Dr. Marycarmen Rodriguez Work Phone: [facility] 01-07-2022 11:07-0400 Body mass index (BMI) [Ratio] 34.9 kg/m2 Dr. Marycarmen Rodriguez Work Phone: [facility] Work Phone: 01-07-2022 11:07-0400 Body temperature 97.4 [degF] Dr. Marycarmen Rodriguez Work Phone: [facility] Work Phone: 01-07-2022 11:07-0400 Body weight 107.[address] Marycarmen Rodriguez Work Phone: [facility] Work Phone: 01-07-2022 11:07-0400 Diastolic blood pressure 87 mm[Hg] Dr. Marycarmen Rodriguez Work Phone: [facility] Work Phone: 01-07-2022 11:07-0400 Heart rate 60 /min Dr. Marycarmen Rodriguez Work Phone: [facility] Work Phone: 01-07-2022 11:07-0400 Respiratory rate 16 /min Dr. Marycarmen Rodriguez Work Phone: [facility] Work Phone: 01-07-2022 11:07-0400 SaO2% (BldA) [Mass fraction] 96 % Dr. Marycarmen Rodriguez Work Phone: [facility] Work Phone: 01-07-2022 11:07-0400 Systolic blood pressure 155 mm[Hg] Dr. Marycarmen Rodriguez Work Phone: [facility] Work Phone: 11-21-2021 10:24-0400 Body height 175.[address] Marycarmen Rodriguez Work Phone: [facility] Work Phone: 11-21-2021 10:24-0400 Body mass index (BMI) [Ratio] 34.9 kg/m2 Dr. Marycarmen Rodriguez Work Phone: [facility] Work Phone: 11-21-2021 10:24-0400 Body weight 107.[address] Marycarmen Rodriguez Work Phone: [facility] Work Phone: 11-21-2021 10:24-0400 Diastolic blood pressure 77 mm[Hg] Dr. Marycarmen Rodriguez Work Phone: [facility] Work Phone: 11-21-2021 10:24-0400 Heart rate 61 /min Dr. Marycarmen Rodriguez Work Phone: [facility] Work Phone: 11-21-2021 10:24-0400 Respiratory rate 18 /min Dr. Marycarmen Rodriguez Work Phone: [facility] Work Phone: 11-21-2021 10:24-0400 SaO2% (BldA) [Mass fraction] 97 % Dr. Marycarmen Rodriguez Work Phone: [facility] Work Phone: 11-21-2021 10:24-0400 Systolic blood pressure 138 mm[Hg] Dr. Marycarmen Rodriguez Work Phone: [facility] Work Phone: 11-16-2021 16:49-0400 Diastolic blood pressure 87 mm[Hg] Dr. Marycarmen Rodriguez Work Phone: [facility] Work Phone: 11-16-2021 16:49-0400 Heart rate 53 /min Dr. Marycarmen Rodriguez Work Phone: [facility] Work Phone: 11-16-2021 16:49-0400 Respiratory rate 16 /min Dr. Marycarmen Rodriguez Work Phone: [facility] Work Phone: 11-16-2021 16:49-0400 SaO2% (BldA) [Mass fraction] 93 % Dr. Marycarmen Rodriguez Work Phone: [facility] Work Phone: 11-16-2021 16:49-0400 Systolic blood pressure 117 mm[Hg] Dr. Marycarmen Rodriguez Work Phone: [facility] Work Phone: 11-16-2021 12:55-0400 Body mass index (BMI) [Ratio] 33.2 kg/m2 Dr. Marycarmen Rodriguez Work Phone: [facility] Work Phone: 11-16-2021 12:55-0400 Body temperature 97.6 [degF] Dr. Marycarmen Rodriguez Work Phone: [facility] Work Phone: 11-16-2021 12:55-0400 Body weight 102.[address] Marycarmen Rodriguez Work Phone: [facility] Work Phone: 09-16-2021 10:37-0400 Body height 175.[address] Marycarmen Rodriguez Work Phone: [facility] Work Phone: 09-16-2021 10:37-0400 Body mass index (BMI) [Ratio] 35.7 kg/m2 Dr. Marycarmen Rodriguez Work Phone: [facility] Work Phone: 09-16-2021 10:37-0400 Body weight 109.[address] Marycarmen Rodriguez Work Phone: [facility] Work Phone: 09-16-2021 10:37-0400 Diastolic blood pressure 69 mm[Hg] Dr. Marycarmen Rodriguez Work Phone: [facility] Work Phone: 09-16-2021 10:37-0400 Heart rate 50 /min Dr. Marycarmen Rodriguez Work Phone: [facility] Work Phone: 09-16-2021 10:37-0400 Respiratory rate 18 /min Dr. Marycarmen Rodriguez Work Phone: [facility] Work Phone: 09-16-2021 10:37-0400 Systolic blood pressure 122 mm[Hg] Dr. Marycarmen Rodriguez Work Phone: [facility] Work Phone: 08-01-2021 10:02-0400 Body mass index (BMI) [Ratio] 35.7 kg/m2 Dr. Marycarmen Rodriguez Work Phone: [facility] Work Phone: 08-01-2021 10:02-0400 Body weight 109.[address] Marycarmen Rodriguez Work Phone: [facility] Work Phone: 08-01-2021 10:02-0400 Diastolic blood pressure 81 mm[Hg] Dr. Marycarmen Rodriguez Work Phone: [facility] Work Phone: 08-01-2021 10:02-0400 Heart rate 59 /min Dr. Marycarmen Rodriguez Work Phone: [facility] Work Phone: 08-01-2021 10:02-0400 Respiratory rate 18 /min Dr. Marycarmen Rodriguez Work Phone: [facility] Work Phone: 08-01-2021 10:02-0400 SaO2% (BldA) [Mass fraction] 97 % Dr. Marycarmen Rodriguez Work Phone: [facility] Work Phone: 08-01-2021 10:02-0400 Systolic blood pressure 133 mm[Hg] Dr. Marycarmen Rodriguez Work Phone: [facility] Work Phone: 08-01-2021 10:02-0400 Body height 175.[address] Marycarmen Rodriguez Work Phone: [facility] Work Phone: 08-01-2021 10:02-0400 Body mass index (BMI) [Ratio] 35.7 kg/m2 Dr. Marycarmen Rodriguez Work Phone: [facility] Work Phone: 08-01-2021 10:02-0400 Body weight 109.[address] Marycarmen Rodriguez Work Phone: [facility] Work Phone: 08-01-2021 10:02-0400 Diastolic blood pressure 81 mm[Hg] Dr. Marycarmen Rodriguez Work Phone: [facility] Work Phone: 08-01-2021 10:02-0400 Heart rate 59 /min Dr. Marycarmen Rodriguez Work Phone: [facility] Work Phone: 08-01-2021 10:02-0400 Respiratory rate 18 /min Dr. Marycarmen Rodriguez Work Phone: [facility] Work Phone: 08-01-2021 10:02-0400 SaO2% (BldA) [Mass fraction] 97 % Dr. Marycarmen Rodriguez Work Phone: [facility] Work Phone: 08-01-2021 10:02-0400 Systolic blood pressure 133 mm[Hg] Dr. Marycarmen Rodriguez Work Phone: [facility] Work Phone: 06-10-2021 18:38-0500 Diastolic blood pressure 75 mm[Hg] Dr. Marycarmen Rodriguez Work Phone: [facility] Work Phone: 06-10-2021 18:38-0500 Heart rate 57 /min Dr. Marycarmen Rodriguez Work Phone: [facility] Work Phone: 06-10-2021 18:38-0500 Respiratory rate 14 /min Dr. Marycarmen Rordiguez Work Phone: [facility] Work Phone: 06-10-2021 18:38-0500 SaO2% (BldA) [Mass fraction] 96 % Dr. Marycarmen Rodriguez Work Phone: [facility] Work Phone: 06-10-2021 18:38-0500 Systolic blood pressure 121 mm[Hg] Dr. Marycarmen Rodriguez Work Phone: [facility] Work Phone: 06-10-2021 13:36-0500 Body mass index (BMI) [Ratio] 34 kg/m2 Dr. Marycarmen Rodriguez Work Phone: [facility] Work Phone: 06-10-2021 13:36-0500 Body temperature 97 [degF] Dr. Marycarmen Rodriguez Work Phone: [facility] Work Phone: 06-10-2021 13:36-0500 Body weight 104.[address] Marycarmen Rodriguez Work Phone: [facility] Work Phone: 05-19-2021 16:55-0500 Respiratory rate 16 /min Dr. Marycarmen Rodriguez Work Phone: [facility] Work Phone: 05-19-2021 14:43-0500 Body temperature 96.5 [degF] Dr. Marycarmen Rodriguez Work Phone: [facility] Work Phone: 05-19-2021 14:43-0500 Diastolic blood pressure 94 mm[Hg] Dr. Marycarmen Rodriguez Work Phone: [facility] Work Phone: 05-19-2021 14:43-0500 Heart rate 63 /min Dr. Marycarmen Rodriguez Work Phone: [facility] Work Phone: 05-19-2021 14:43-0500 SaO2% (BldA) [Mass fraction] 99 % Dr. Marycarmen Rodriguez Work Phone: [facility] Work Phone: 05-19-2021 14:43-0500 Systolic blood pressure 172 mm[Hg] Dr. Marycarmen Rodriguez Work Phone: [facility] Work Phone: 05-19-2021 14:42-0500 Body mass index (BMI) [Ratio] 34 kg/m2 Dr. Marycarmen Rodriguez Work Phone: [facility] Work Phone: 05-19-2021 14:42-0500 Body weight 104.[address] Marycarmen Rodriguez Work Phone: [facility] Work Phone: 12-26-2020 10:29-0400 Diastolic blood pressure 76 mm[Hg] Eladio Ingram MD Work Phone: [facility] 12-26-2020 10:29-0400 Systolic blood pressure 141 mm[Hg] Eladio Ingram MD Work Phone: [facility] 12-26-2020 10:24-0400 Body height 175.3 cm Eladio Ingram MD Work Phone: [facility] 12-26-2020 10:24-0400 Body mass index (BMI) [Ratio] 33.67 kg/m2 Eladio Ingram MD Work Phone: [facility] 12-26-2020 10:24-0400 Body weight 103.42 kg Eladio Ingram MD Work Phone: [facility] 12-26-2020 10:24-0400 Heart rate 59 /min Eladio Ingram MD Work Phone: [facility] 12-26-2020 10:24-0400 SaO2% (BldA) [Mass fraction] 95 % Eladio Ingram MD Work Phone: [facility] 10-09-2020 10:53-0400 Diastolic blood pressure 72 mm[Hg] Fernanda Acuña TITLE I DIRECTOR Work Phone: [facility] 10-09-2020 10:53-0400 Systolic blood pressure 134 mm[Hg] Fernanda Acuña TITLE I DIRECTOR Work Phone: [facility] 10-09-2020 09:59-0400 Body mass index (BMI) [Ratio] 34.6 kg/m2 Fernanda Acuña TITLE I DIRECTOR Work Phone: [facility] 10-09-2020 09:59-0400 Body weight 106.28 kg Fernanda Acuña TITLE I DIRECTOR Work Phone: [facility] 10-09-2020 09:59-0400 Heart rate 58 /min Fernanda Acuña TITLE I DIRECTOR Work Phone: [facility] 10-09-2020 09:59-0400 Respiratory rate 16 /min Fernanda Acuña TITLE I DIRECTOR Work Phone: [facility] 10-09-2020 09:59-0400 SaO2% (BldA) [Mass fraction] 94 % Fernanda Acuña CNP Work Phone: [facility] 12-17-2016 11:21-0400 BMI (Body Mass Index) 32.99 kg/m2 Eladio Ingram [facility] Work Phone: 12-17-2016 11:21-0400 BP Diastolic 82 mm[Hg] Eladio Ingram [facility] Work Phone: 12-17-2016 11:21-0400 BP Systolic 150 mm[Hg] Eladio Ingram [facility] Work Phone: 12-17-2016 11:21-0400 Height 175.3 cm Eladio Ingram [facility] Work Phone: 12-17-2016 11:040 Pulse (Heart Rate) 70 /min Eladio Ingram [facility] Work Phone: 12-17-2016 11:210400 Pulse Oximetry 97 % Eladio Ingram [facility] Work Phone: 12-17-2016 11:210400 Weight 101.33 kg Eladio Ingram [facility] Work Phone: Encounters Encounter Date Encounter Type Care Provider Facility Start: 12-25-2024 ambulatory [facility] Facility: [facility] Start: 12-21-2024 ambulatory Efewongbe Mahoganye OLS Fa cility:[facility] Start: 12-20-2024 End: 12-20-2024 Emergency department patient visit Jody Servin Facility:[facility] Start: 12-20-2024 ambulatory [facility] Facility: [facility] Start: 12-18-2024 ambulatory Efewtesha Videse OLS Fa cility:[facility] Start: 12-17-2024 Dr. Marycarmen collins DO [facility] Work Phone: Start: 12-16-2024 Dr. Marycarmen collins DO [facility] Work Phone: Start: 12-16-2024 Dr. Lance Rodriguez MD -[facility] Start: 12-15-2024 End: 12-17-2024 Evaluation and management of inpatient Dr. Marycarmen Rodriguez DO Work Phone: -Progressive Care Unit Start: 12-15-2024 ambulatory Marycarmen Rodriguez Facility: [facility] Start: 12-15-2024 End: 12-17-2024 Dr. Marycarmen Marlow DO -Progressive Care Unit Work Phone: Start: 12-13-2024 ambulatory Efandrés Rock OLS Fa cility:[facility] Start: 12-13-2024 Boyd Rock MD [facility] Jeanine Garcia Start: 12-12-2024 End: 12-12-[address] Marycarmen Rodriguez DO Work Phone: -Laboratory Start: 12-12-2024 End: 12-12-2024 Gustabo Pérez 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 -Laboratory Work Phone: Start: 12-12-2024 End: 12-12-2024 Gustabo Pérez 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 -[facility] Work Phone: Start: 12-12-2024 End: 12-12-[address] Marycarmen Rodriguez DO Work Phone: -[facility] Start: 12-12-2024 End: 12-12-2024 ambulatory Gustabo Pérez THREAT MONITORING ANALYST Facility:[facility] Start: 12-08-2024 Dr. [facility] Work Phone: Start: 12-07-2024 End: 12-08-[address] Marycarmen Rodriguez DO Work Phone: -Progressive Care Unit Start: 12-07-2024 End: 12-08-2024 ambulatory Shaan Santos Facility:[facility] Start: 12-07-2024 End: 12-08-2024 Dr. Shaan Santos DO -[facility] Work Phone: Start: 12-06-2024 End: 12-06-2024 Dr. Marcin Araujo MD -Pulmonary Services/Neurology Work Phone: Start: 12-06-2024 End: 12-06-[address] Marycarmen Rodriguez DO Work Phone: -Pulmonary Services/Neurology Start: 12-06-2024 Dr. Alex Sanon MD [facility] Work Phone: Start: 12-05-2024 Dr. Alex Sanon MD - [facility] Work Phone: Start: 12-05-[address] Marycarmen vera DO Work Phone: -[facility] Start: 12-05-2024 Dr. Marcin Araujo MD -[facility] Start: 12-04-2024 Dr. [facility] Work Phone: Start: 12-04-2024 Dr. Marcin Araujo MD [facility] Start: 12-03-2024 Dr. Ramonita Herron MD [facility] Work Phone: Start: 12-03-2024 Dr. Marcin Araujo MD [facility] Start: 12-03-2024 ambulatory Abraham Cool ility:[facility] Start: 12-03-2024 End: 12-06-2024 Evaluation and management of inpatient Dr. Marycarmen Rodriguez DO Work Phone: -Progressive Care Unit Start: 12-03-2024 End: 12-06-2024 Dr. Alex Sanon MD -Progressive Care Unit Work Phone: Start: 12-02-2024 Dr. Marcin Araujo MD [facility] Start: 12-02-2024 ambulatory Abraham Cool ility:[facility] Start: 12-02-2024 Evaluation and manag ement of inpatient Dr. Marycarmen Rodriguez DO Work Phone: -Intensive Care Unit Start: 12-02-2024 Dr. Abraham Ridley DO -Intensive Care Unit Work Phone: Start: 12-02-2024 Dr. Nickie Danielson DO [facility] Work Phone: Start: 12-01-2024 Dr. Marcin Araujo MD [facility] Start: 11-30-2024 End: 12-02-2024 Evaluation and management of inpatient Dr. Marycarmen Rodriguez DO Work Phone: -Intensive Care Unit Start: 11-30-2024 ambulatory Jose Suárez [facility] Start: 11-30-2024 End: 12-02-2024 Dr. Abraham Ridley DO -Intensive Care Unit Work Phone: Start: 11-27-2024 Dr. Jose Suárez MD [facility] Start: 11-27-[address] Marycarmen vera DO Work Phone: -[facility] Start: 11-27-2024 End: 11-28-2024 ambulatory Jose Suárez Facility:[facility] Start: 11-27-2024 End: 11-28-[address] Marycarmen Rodriguez DO Work Phone: -Progressive Care Unit Start: 11-27-2024 End: 11-28-2024 Dr. Jose Suárez MD -Progressive Care Unit Work Phone: Start: 11-26-2024 End: 11-26-2024 Dr. Marycarmen Rodriguez DO Work Phone: -Emergency Department Work Phone: Start: 11-26-2024 End: 11-26-2024 Emergency department patient visit Dr. Marycarmen Rodriguez DO Work Phone: -Emergency Department Start: 11-22-2024 End: 11-22-[address] Marycarmen Rodriguez DO Work Phone: -Radiology [facility] Start: 11-22-2024 End: 11-22-2024 Gustabo Pérez 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 -Radiology [facility] Work Phone: Start: 11-22-2024 End: 11-22-2024 Gustabo Pérez 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 -[facility] Work Phone: Start: 11-22-2024 End: 11-22-[address] Marycarmen Rodriguez DO Work Phone: -[facility] Start: 11-22-2024 End: 11-22-2024 ambulatory Gustabo Pérez THREAT MONITORING ANALYST Facility:[facility] Start: 11-20-2024 End: 11-20-[address] Marycarmen Rodriguez DO Work Phone: -Radiology [facility] Start: 11-20-2024 End: 11-20-2024 Dr. Brooks Carpenter MD -Radiology [facility] Work Phone: Start: 11-20-2024 End: 11-20-2024 ambulatory Marycarmen Rodriguez Facility:[facility] Start: 11-13-2024 ambulatory Jose Suárez Facility:[facility] Start: 11-13-2024 Non-patient / Non-visit Dr. Jose colon MD -[facility] Start: 11-13-2024 Dr. Jose Suárez MD -[facility] Start: 11-10-2024 End: 11-10-[address] Marycarmen Rodriguez DO Work Phone: -Sleep Lab Start: 11-10-2024 End: 11-10-2024 Patient encounter procedure THREAT MONITORING ANALYST Maren Olivas -Sleep Lab Work Phone: Start: 11-10-2024 End: 11-10-2024 THREAT MONITORING ANALYST Maren Olivas -Sleep Lab Work Phone: Start: 11-10-2024 ambulatory Gustabo Pérez THREAT MONITORING ANALYST Facility :[facility] Start: 11-10-2024 Non-patient / Non-visit Dr. Lance pereira MD -[facility] Work Phone: Start: 11-10-2024 Dr. Lance Rodriguez MD -[facility] Work Phone: Start: 11-10-2024 End: 11-10-[address] Marycarmen Rodriguez DO Work Phone: -Cardiovascular Services Start: 11-10-2024 End: 11-10-2024 Patient encounter procedure Gustabo Pérez 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 -Cardiovascular Services Work Phone: Start: 11-10-2024 End: 11-10-2024 Gustabo Pérez 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 -Cardiovascular Services Work Phone: Start: 11-09-2024 End: 11-10-[address] Marycarmen Rodriguez DO Work Phone: -Laboratory [facility] W[facility] Start: 11-09-2024 End: 11-09-[address] Marycarmen Rodriguez DO -Laboratory [facility] WONG Start: 11-09-2024 End: 11-09-2024 Dr. Marycarmen Rodriguez DO -Laboratory [facility] MORSE Start: 11-09-2024 End: 11-09-2024 ambulatory Marycarmen Rodriguez Facility:[facility] Start: 10-31-2024 End: 10-31-2024 Patient encounter procedure THREAT MONITORING ANALYST Maren Olivas -[facility] Work Phone: Start: 10-31-2024 End: 10-31-2024 THREAT MONITORING ANALYST Maren Olivas -[facility] Work Phone: Start: 10-31-2024 End: 10-31-[address] Marycarmen Rodriguez DO Work Phone: -[facility] Start: 10-26-2024 End: 10-26-[address] Marycarmen Rodriguez DO Work Phone: -Sleep Lab Start: 10-26-2024 End: 10-26-2024 Patient encounter procedure Marni Horn 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 -Sleep Lab Work Phone: Start: 10-26-2024 End: 10-26-2024 Marni Horn 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 -Sleep Lab Work Phone: Start: 10-25-2024 End: 10-25-2024 Patient encounter procedure Gustabo Pérez 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 -[facility] Work Phone: Start: 10-25-2024 End: 10-25-2024 Gustabo Pérez 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 -[facility] Work Phone: Start: 10-25-2024 End: 10-26-[address] Marycarmen Rodriguez DO Work Phone: [facility] Work Phone: Start: 10-18-2024 End: 10-18-[address] Marycarmen Rodriguez DO Work Phone: [facility] Work Phone: Start: 10-18-2024 End: 10-18-2024 Patient encounter procedure Marni Horn 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 -Sleep Lab Work Phone: Start: 10-18-2024 End: 10-18-2024 Marni Horn 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 -Sleep Lab Work Phone: Start: 10-18-2024 End: 10-18-[address] Marycarmen Rodriguez DO Work Phone: [facility] Work Phone: Start: 10-18-2024 End: 10-18-[address] Brooks Carpenter MD -Laboratory Work Phone: Start: 10-18-2024 End: 10-18-2024 Dr. Brooks Carpenter MD -Laboratory Work Phone: Start: 10-18-2024 End: 10-18-2024 ambulatory Marni Horn THREAT MONITORING ANALYST Facility:[facility] Start: 09-29-2024 End: 09-29-[address] Marycarmen Rodriguez DO Work Phone: [facility] Work Phone: Start: 09-29-2024 End: 09-29-[address] Marycarmen Rodriguez DO -Laboratory [place] Work Phone: Start: 09-29-2024 End: 09-29-2024 Dr. Marycarmen Rodriguez DO -Laboratory [place] Work Phone: Start: 09-29-2024 End: 09-29-2024 ambulatory Marycarmen Rodriguez Facility:[facility] Start: 09-22-2024 End: 09-22-[address] Marycarmen Rodriguez DO Work Phone: [facility] Work Phone: Start: 09-22-2024 End: 09-22-2024 Patient encounter procedure Marni Horn 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 -Sleep Lab Work Phone: Start: 09-22-2024 End: 09-22-2024 Marni Horn 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 -Sleep Lab Work Phone: Start: 09-22-2024 End: 09-22-2024 ambulatory Marni Horn THREAT MONITORING ANALYST Facility:[facility] Start: 09-20-2024 End: 09-20-[address] Marycarmen Rodriguez DO Work Phone: [facility] Work Phone: Start: 09-20-2024 End: 09-20-2024 Patient encounter procedure THREAT MONITORING ANALYST Maren Olivas -Laboratory Work Phone: Start: 09-20-2024 End: 09-20-2024 THREAT MONITORING ANALYST Maren Brendno -Laboratory Work Phone: Start: 09-20-2024 End: 09-20-2024 Patient encounter procedure THREAT MONITORING ANALYST Maren Brendon -[facility] Work Phone: Start: 09-20-2024 End: 09-20-2024 THREAT MONITORING ANALYST Maren Brendon -[facility] Work Phone: Start: 09-20-2024 End: 09-20-[address] Marycarmen Rodriguez DO Work Phone: [facility] Work Phone: Start: 09-20-2024 End: 09-20-2024 ambulatory Maren Olivas Facility:[facility] Start: 08-03-2024 End: 08-03-[address] Marycarmen Rodriguez DO Work Phone: [facility] Work Phone: Start: 08-03-2024 End: 08-03-2024 Patient encounter procedure Marni Horn 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 -Sleep Lab Work Phone: Start: 08-03-2024 End: 08-03-2024 Marni Horn 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 -Sleep Lab Work Phone: Start: 08-03-2024 End: 08-03-2024 ambulatory Marni Horn NP Facility:[facility] Start: 07-18-2024 ambulatory Marni Horn THREAT MONITORING ANALYST Fac ility:[facility] Start: 07-18-2024 Non-patient / Non-visit Dr. Zen schultz DO -[facility] Start: 07-18-2024 End: 07-18-[address] Marycarmen Rodriguez DO Work Phone: [facility] Work Phone: Start: 07-18-2024 End: 07-18-2024 Patient encounter procedure Marni POOL -Pulmonary Services/Neurology Work Phone: Start: 07-17-2024 Non-patient / Non-visit Dr. Zen schultz DO -[facility] Start: 07-17-2024 End: 07-18-[address] Marycarmen Rodriguez DO Work Phone: [facility] Work Phone: Start: 07-17-2024 End: 07-17-2024 Patient encounter procedure Marni POOL -Sleep Lab Work Phone: Start: 07-17-2024 End: 07-17-2024 ambulatory [facility] Facility:[facility] Start: 07-07-2024 End: 07-07-[address] Marycarmen Rodriguez DO Work Phone: [facility] Work Phone: Start: 07-07-2024 End: 07-07-2024 Patient encounter procedure Marni POOL -Sleep Lab Work Phone: Start: 07-07-2024 End: 07[facility] Start: 07-03-2024 End: 07-03-2024 Patient encounter procedure Marni POOL -[facility] Work Phone: Start: 07-03-2024 End: 07-03-2024 ambulatory Marycarmen [facility] Facility:[facility] Start: 06-30-2024 End: 06-30-[address] Marycarmen Rodriguez DO Work Phone: [facility] Work Phone: Start: 06-30-2024 End: 06-30-[address] Marycarmen Rodriguez DO -Laboratory, [facility] Start: 06-30-2024 End: 06-30-2024 ambulatory [facility] Facility:[facility] Start: 04-17-2024 End: 04-17-2024 Patient encounter procedure Gustabo POOL -[facility] Work Phone: Start: 04-17-2024 End: 04-17-2024 ambulatory [facility] Facility:[facility] Start: 04-17-2024 End: 04-17-2024 ambulatory [facility] Facility:[facility] Start: 03-27-2024 End: 03-27-[address] Jose Suárez MD -[facility] Work Phone: Start: 03-27-2024 End: 03-27-2024 ambulatory [facility] Facility:[facility] Start: 03-23-2024 End: 03-23-[address] Marycarmen Rodriguez DO -Ritesh Martini [facility] Start: 03-23-2024 End: 03-23-2024 ambulatory [facility] Facility:[facility] Start: 03-20-2024 End: 03-20-[address] Jose Suárez MD -[facility] Work Phone: Start: 03-20-2024 End: 03-20-2024 ambulatory Jose Suárez Facility:[facility] Start: 05-07-2023 End: 05-07-2023 ambulatory [facility] Work Phone: Start: 05-07-2023 End: 05-07-2023 Patient encounter procedure [facility] Start: 12-29-2022 Non-patient / Non-visit Dr. Ap Rodriguez Work Phone: [facility] Work Phone: Start: 12-28-2022 Non-patient / Non-visit Dr. Ap Rodriguez Work Phone: [facility] Start: 12-28-2022 End: 12-28-[address] Marycarmen Rodriguez Work Phone: [facility] Work Phone: Start: 12-28-2022 End: 12-28-[address] Marycarmen Rodriguez Work Phone: [facility]-Cardiovascul ar Services Work Phone: Start: 12-21-2022 End: 12-21-2022 Admission to same day surgery center Dr. Marycarmen Rodriguez Work Phone: [facility]-[employer]/Special Procedures Work Phone: Start: 12-21-2022 End: 12-21-[address] Marycarmen Rodriguez Work Phone: [facility] Work Phone: Start: 12-15-2022 End: 12-15-[address] Marycarmen Rodriguez Work Phone: [facility] Work Phone: Start: 12-15-2022 End: 12-15-[address] Marycarmen Rodriguez Work Phone: [facility]-Laboratory Work Phone: Start: 12-15-2022 End: 12-15-[address] Marycarmen Rodriguez Work Phone: [facility] Work Phone: Start: 10-16-2022 End: 10-16-2022 ambulatory Marycarmen SWAIN [facility] Work Phone: Start: 10-16-2022 End: 10-16-2022 Patient encounter procedure Marycarmen SWAIN [facility]-Pulmonary Services/Neurology Start: 10-13-2022 End: 10-13-2022 ambulatory Marycarmen SWAIN [facility] Work Phone: Start: 10-13-2022 End: 10-13-2022 Patient encounter procedure Marycarmen SWAIN [facility] Start: 09-21-2022 Non-patient / Non-visit Marycarmen Stutzma n [facility] Start: 09-20-2022 Non-patient / Non-visit Marycarmen Porter gifford [facility] Start: 09-19-2022 Non-patient / Non-visit Marycarmen gifford [facility] Start: 09-18-2022 Non-patient / Non-visit Marycarmen gifford [facility] Start: 09-17-2022 End: 09-17-2022 Non-patient / Non-visit Marycarmen SWAIN [facility] Start: 09-17-2022 End: 09-21-2022 Evaluation and management of inpatient [facility]armen Rodriguez [facility] Start: 09-09-2022 Non-patient / Non-visit Marycarmen gifford [facility] Start: 09-01-2022 Non-patient / Non-visit Marycarmen gifford [facility] Start: 08-31-2022 End: 08-31-2022 Non-patient / Non-visit Marycarmen Rodriguez [facility] Start: 08-31-2022 Non-patient / Non-visit Marycarmen gifford [facility] Start: 08-31-2022 End: 09-01-2022 Evaluation and management of inpatient Marycarmen Rodriguez [facility] Care Unit Start: 08-31-2022 End: 09-01-2022 observation encounter Marycarmen Rodriguez [facility] Work Phone: Start: 08-19-2022 End: 08-19-2022 ambulatory Marycarmen Rodriguez [facility] Work Phone: Start: 08-19-2022 End: 08-19-2022 Patient encounter procedure Marycarmen Rodriguez [facility] Start: 08-11-2022 Non-patient / Non-visit Marycarmen Porter gifford [facility] Start: 06-11-2022 End: 06-11-[address] Marycarmen Rodriguez Work Phone: [facility] Work Phone: Start: 06-11-2022 End: 06-11-[address] Marycarmen Rodriguez Work Phone: [facility] Start: 04-21-2022 Non-patient / Non-visit Dr. Ap Rodriguez Work Phone: [facility] Start: 04-21-2022 End: 04-21-[address] Marycarmen Rodriguez Work Phone: [facility] Work Phone: Start: 04-21-2022 End: 04-21-[address] Marycarmen Rodriguez Work Phone: [facility]-Cardiovascul ar Services Start: 04-16-2022 End: 04-16-[address] Marycarmen Rodriguez Work Phone: [facility]-Pulmonary Medicine [facility] Start: 04-14-2022 End: 04-14-[address] Marycarmen Rodriguez Work Phone: [facility] Work Phone: Start: 04-14-2022 End: 04-14-[address] Marycarmen Rodriguez Work Phone: [facility]-Radiology, [facility] Start: 04-14-2022 End: 04-14-[address] Marycarmen Rodriguez Work Phone: [facility] Start: 03-27-2022 End: 03-27-[address] Marycarmen Rodriguez Work Phone: [facility] Start: 01-20-2022 End: 01-20-[address] Marycarmen Rodriguez Work Phone: [facility]-Cat Scan, [facility] Start: 01-07-2022 End: 01-07-[address] Marycarmen Rodriguez [facility] Start: 11-27-2021 Non-patient / Non-visit Dr. Ap Rodriguez Work Phone: [facility] Start: 11-26-2021 End: 11-26-[address] Marycarmen Rodriguez Work Phone: [facility]-Pulmonary Services/Neurology Start: 11-21-2021 End: 11-21-[address] Marycarmen Rodriguez Work Phone: [facility] Start: 11-16-2021 End: 11-16-2021 Emergency department patient visit Dr. Marycarmen Rodriguez Work Phone: [facility] [facility] Start: 10-28-2021 End: 10-28-[address] Marycarmen Rodriguez [facility] Phone[facility] Start: 09-16-2021 End: 09-16-[address] Marycarmen Rodriguez [facility] Phone: [facility] Start: 09-16-2021 End: 09-16-[address] Marycarmen Rodriguez Work Phone: [facility] Start: 08-15-2021 Non-patient / Non-visit Dr. Ap Rodriguez Work Phone: [facility] Start: 08-15-2021 Non-patient / Non-visit Dr. Ap Rodriguez Work Phone: [facility] Start: 08-15-2021 End: 08-15-[address] Marycarmen Rodriguez Work Phone: [facility] Start: 08-01-2021 End: 08-01-[address] Marycarmen Rodriguez Work Phone: [facility] Start: 06-10-2021 End: 06-10-2021 Emergency department patient visit Dr. Marycarmen Rodriguez Work Phone: [facility]-Emergency Department Start: 05-19-2021 End: 05-19-2021 Emergency department patient visit Dr. Marycarmen Rodriguez Work Phone: [facility]-Emergency Department Start: 05-16-2021 End: 05-16-[address] Marycarmen Rodriguez Work Phone: [facility]-Laboratory, Specimen Start: 03-19-2021 ambulatory ELADIO ALLEN 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); Mixed hyperlipidemia Start: 12-18-2020 ambulatory MIN HOWARD Facilit y:[facility] Start: 10-15-2020 End: 10-16-2020 ambulatory MARYCARMEN HARRISON JENNIFER [facility] Start: 10-15-2020 End: 10-15-2020 Subsequent hospital visit by physician Eladio Ingram MD Work Phone: [facility] Comment on above: Arrived Start: 10-10-2020 ambulatory FERNANDA AYALASANTO ACUÑA [facility] Amb[facility] Start: 10-09-2020 End: 10-09-2020 Orders Only Fernanda Ayalann Domenico TITLE I DIRECTOR Work Phone: [facility] Comment on above: DEAN (dyspnea on exer tion) (Primary Dx) Start: 10-09-2020 End: 10-09-2020 Office outpatient new 45 minutes Fernandabulmaro Acuña TITLE I DIRECTOR Work Phone: [facility] Comment on above: DEAN (dyspnea on exer tion); Essential hypertension; Type 2 diabetes mellitus without complication, without long-term current use of insulin (HCC); MATTHEW (obstructive sleep apnea); 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 without angina pectoris Start: 10-04-2020 End: 10-04-2020 Orders Only Deisi March RN [facility] Comment on above: Shortness of breath (Primary Dx) Start: 12-17-2016 Office/outpatient vi sit, est, level 4 Eladio Ingram Work Phone: [facility] Start: 11-28-2016 End: 11-28-2016 Patient encounter procedure [facility] Transfer [facility] Procedures Date Procedure [...] Pulmonary ventilatio n perfusion study Dr. Marycarmen Rodriguez DO Work Phone: Start: [...] Mean corpuscular hemoglobin concentration determination Dr. Marycarmen Rdoriguez DO Work Phone: Start: 12-04-2024 Nucleated red [...] Work Phone: Comment on above: Test Ordered: [id number] Screen, Urine Negative ng/mL UI Reference Range: Jlwwza=440Wuxytzromme test includes Amphetamine and Methamphetamine.Barbiturates Negative ng/mL UI Reference Range: Yqymyk=472Lwpljihhlqibrxh Negative ng/mL UI Reference Range: Gdkpia=982Jzwwnco (Metab.), Urine Negative ng/mL UI Reference Range: Iimayt=315Znkaaqx Note: ng/mL UI See Final Results Reference Range: Pmyomk=585Arxdaj test includes Codeine, Morphine, Hydromorphone, Hydrocodone.Opiates Positive [A ] UI Reference Range: Nzjimi=110Rqovno test includes Codeine, Morphine, Hydromorphone, Hydrocodone.Codeine Negative UI Reference Range: Izhzdm=474Qzfqzzfe Negative UI Reference Range: Rowcbg=600Xmyayyasdmmhf Negative UI Reference Range: Nmtqam=701Iskbigrpusj Positive [A ] UI Reference Range: .Hydrocodone Conf, MS, UR 349 ng/mL UI Reference Range: Hzslww=8469-Uakfentseqeums, Urine Negative ng/mL UI Reference Range: Cutoff=10Oxycodone/Oxymorphone, Urine Negative ng/mL UI Reference Range: Stfjvt=040Ecen includes Oxycodone and OxymorphonePCP, Urine Negative ng/mL UI Reference Range: Cutoff=25Methadone Screen, Urine Negative ng/mL UI Reference Range: Thjnjz=173Famjxiqrmacp, Urine Negative ng/mL UI Reference Range: Gbwvwy=877Fpxgqmxq, Urine Negative ng/mL UI Reference Range: Cutoff=2.0Test includes Fentanyl and NorfentanylThis test was developed and its performance characteristicsdetermined by [employer]. It has not been cleared orapproved by the Food and Drug Administration.Tramadol Negative ng/mL UI Reference Range: Lelkxn=142Zapajchrynlyu, Urine Negative ng/mL UI Reference Range: Cutoff=10Creatinine, Urine 36.9 mg/dL UI Reference Range: 20.0-300.0pH, Urine 6.1 UI Reference Range: 4.5-8.9Performed at: [facility] [id number] [place], [place] [id number] Director: Erik Wallis PhD, Phone: [phone] at: [facility] [employer] [id number] Director: Bharath Hawthorne PhD, Phone: [phone] Start: 10-18-[address] Marycarmen [...] Start: 09-29-2024 Platelet mean volume determination Dr. Maryacrmen Rodriguez DO Work Phone: Start: 09-20-2024 Blood [...] w/le ast 12 lds w/i&r Fernanda Acuña TITLE I DIRECTOR Work Phone: Start: 08-18-2018 History of percutane ous transluminal coronary angioplasty History of percutaneous transluminal coronary angioplasty Dr. 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 Alexandr Mcclain Start: 08-13-2017 History of placement of stent for coronary artery disease History of coronary artery stent placement Dr. 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 Procedure aborted. 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1673GQY-EFJI-Un and Stent-Mid RCA x 2 Multi Link Mini Vision Rx Stent 4.0 x 28 mm 01/21/2006 Plan of Treatment Date Care Activity Detail Author Start: 12-17-2024 Patient discharge [facility] Start: 12-16-2024 [facility] Start: 12-15-2024 Dual pressure spontaneous ventilation support [facility] Start: 12-15-2024 Assessment of risk of venous thromboembolism [facility] Start: 12-15-2024 Care regimes management [facility] Start: 12-15-2024 Continuous pulse oximetry [facility] Start: 12-15-2024 Incentive spirometry [facility] Start: 12-15-2024 Insertion of catheter into peripheral vein [facility] Start: 12-15-2024 Measuring intake and output [facility] Start: 12-15-2024 Notification of physician [facility] Start: 12-15-2024 Providing care according to standard [facility] Start: 12-15-2024 Provision of activity privileges [facility] Start: 12-15-2024 Referral to inspector penetrant [facility] Start: 12-15-2024 Referral to occupational therapist [facility] Start: 12-15-2024 Referral to service [facility] Start: 12-15-2024 Tobacco use cessation education [facility] Start: 12-15-2024 End: 12-15-2024 [facility] Start: 12-15-2024 Following clinical pathway protocol [facility] Start: 12-15-2024 Admission procedure [facility] Start: 12-15-2024 [facility] Start: 12-15-2024 Patient referral to dietitian [facility] Start: 12-08-2024 Patient discharge [facility] Start: 12-07-2024 Following clinical pathway protocol [facility] Start: 12-07-2024 Assessment of risk of venous thromboembolism [facility] Start: 12-07-2024 Care regimes management [facility] Start: 12-07-2024 Inhalation therapy procedure [facility] Start: 12-07-2024 Insertion of catheter into peripheral vein [facility] Start: 12-07-2024 Measuring intake and output [facility] Start: 12-07-2024 Notification of physician [facility] Start: 12-07-2024 Providing care according to standard [facility] Start: 12-07-2024 Provision of activity privileges [facility] Start: 12-07-2024 Referral to occupational therapist [facility] Start: 12-07-2024 Referral to service [facility] Start: 12-07-2024 End: 12-07-2024 [facility] Start: 12-07-2024 Pulmonary perfusion study [facility] Start: 12-07-2024 Verification routine [facility] Start: 12-07-2024 Admission procedure [facility] Start: 12-07-2024 Hospital admission, emergency, from emergency room, medical nature [facility] Start: 12-07-2024 [facility] Start: 12-07-2024 [facility] Start: 12-07-2024 Dual pressure spontaneous ventilation support [facility] Start: 12-06-2024 Patient discharge [facility] Start: 12-05-2024 Referral to occupational therapist [facility] Start: 12-05-2024 Referral to service [facility] Start: 12-03-2024 Electrocardiographic procedure [facility] Start: 12-03-2024 Referral to inspector penetrant [facility] Start: 12-03-2024 Verification routine [facility] Start: 12-03-2024 Admission procedure [facility] Start: 12-02-2024 End: 12-02-2024 [facility] Start: 12-02-2024 Following clinical pathway protocol [facility] Start: 12-02-2024 Notification of physician [facility] Start: 12-02-2024 Patient education [facility] Start: 12-02-2024 Provision of activity privileges [facility] Start: 12-02-2024 Pulse taking [facility] Start: 12-02-2024 Taking patient vital signs [facility] Start: 12-02-2024 Wound care [facility] Start: 12-02-2024 Oxygen therapy [facility] Start: 12-02-2024 Dual pressure spontaneous ventilation support [facility] Start: 12-02-2024 End: 12-02-2024 Hospital admission, emergency, from emergency room, medical nature [facility] Start: 12-02-2024 [facility] Start: 12-02-2024 Patient discharge [facility] Start: 12-02-2024 Electrocardiographic procedure [facility] Start: 12-02-2024 Magnetic resonance angiography of head without contrast [facility] Start: 12-02-2024 Magnetic resonance angiography of neck without contrast [facility] Start: 12-02-2024 MRA Head vessels WO contrast [facility] Start: 12-02-2024 MRA Neck vessels WO contrast [facility] Start: 12-01-2024 Vital signs measurements [facility] Start: 12-01-2024 Aspiration precautions [facility] Start: 12-01-2024 Cardiac monitoring [facility] Start: 12-01-2024 Catheterization of vein [facility] Start: 12-01-2024 Consultation [facility] Start: 12-01-2024 Continuous pulse oximetry [facility] Start: 12-01-2024 Elevation of head of bed [facility] Start: 12-01-2024 Exercises [facility] Start: 12-01-2024 Notification of physician [facility] Start: 12-01-2024 Oxygen therapy [facility] Start: 12-01-2024 Patient referral to dietitian [facility] Start: 12-01-2024 Referral to occupational therapist [facility] Start: 12-01-2024 Referral to service [facility] Start: 12-01-2024 Speech therapy assessment [facility] Start: 12-01-2024 Telemedicine consultation with patient [facility] Start: 12-01-2024 Tobacco use cessation education [facility] Start: 12-01-2024 End: 12-01-2024 [facility] Start: 12-01-2024 [facility] Start: 12-01-2024 [facility] Start: 12-01-2024 Electrocardiographic procedure [facility] Start: 12-01-2024 Continuous positive airway pressure ventilation treatment [facility] Start: 12-01-2024 US Heart [facility] Start: 12-01-2024 Complete blood count [facility] Start: 11-30-2024 End: 11-30-2024 [facility] Start: 11-30-2024 Following clinical pathway protocol [facility] Start: 11-30-2024 Ambulation without limitation [facility] Start: 11-30-2024 Assessment of risk of venous thromboembolism [facility] Start: 11-30-2024 Insertion of catheter into peripheral vein [facility] Start: 11-30-2024 Measuring intake and output [facility] Start: 11-30-2024 Providing care according to standard [facility] Start: 11-30-2024 Referral to service [facility] Start: 11-30-2024 Care regimes management [facility] Start: 11-30-2024 Complete blood count [facility] Start: 11-30-2024 Elevation of head of bed [facility] Start: 11-30-2024 Admission procedure [facility] Start: 11-30-2024 Cardiac monitoring [facility] Start: 11-30-2024 Cardiac rehabilitation - phase 1 [facility] Start: 11-30-2024 Cardiac rehabilitation - phase 2 [facility] Start: 11-30-2024 Dietary regime [facility] Start: 11-30-2024 Log roll [facility] Start: 11-30-2024 End: 11-30-2024 Notification of physician [facility] Start: 11-30-2024 Oxygen therapy [facility] Start: 11-30-2024 Patient discharge [facility] Start: 11-30-2024 Provision of activity privileges [facility] Start: 11-30-2024 Pulse taking [facility] Start: 11-30-2024 Hospital admission, emergency, from emergency room, medical nature [facility] Start: 11-30-2024 Electrocardiographic procedure [facility] Start: 11-30-2024 End: 11-30-2024 [facility] Start: 11-30-2024 Partial thromboplastin time, activated [facility] Start: 11-30-2024 Prothrombin time [facility] Start: 11-28-2024 [facility] Start: 11-28-2024 Patient discharge [facility] Start: 11-28-2024 Complete blood count [facility] Start: 11-27-2024 Following clinical pathway protocol [facility] Start: 11-27-2024 Elevation of head of bed [facility] Start: 11-27-2024 Dietary regime [facility] Start: 11-27-2024 Log roll [facility] Start: 11-27-2024 Provision of activity privileges [facility] Start: 11-27-2024 End: 11-27-2024 [facility] Start: 11-27-2024 Admission procedure [facility] Start: 11-27-2024 Cardiac monitoring [facility] Start: 11-27-2024 Cardiac rehabilitation - phase 1 [facility] Start: 11-27-2024 Cardiac rehabilitation - phase 2 [facility] Start: 11-27-2024 Notification of physician [facility] Start: 11-27-2024 Oxygen therapy [facility] Start: 11-27-2024 Pulse taking [facility] Start: 11-27-2024 Continuous positive airway pressure ventilation treatment [facility] Start: 11-27-2024 Inhalation therapy procedure [facility] Start: 11-26-2024 [facility] Start: 11-26-2024 [facility] Start: 11-22-2024 Evaluation of diagnostic study results [facility] Start: 10-25-2024 Evaluation of diagnostic study results [facility] Start: 07-25-2024 Walking distance [address] [facility] Start: 07-17-2024 Measurement of respiratory function [facility] Start: 12-21-2022 Patient discharge [facility] Start: 10-05-2022 Measurement of respiratory function [facility] Start: 09-21-2022 Patient discharge [facility] Start: 09-20-2022 Telepractice consultation [facility] Start: 09-18-2022 Following clinical pathway protocol [facility] Start: 09-17-2022 Aspiration precautions [facility] Start: 09-17-2022 Assessment of risk of venous thromboembolism [facility] Start: 09-17-2022 Cardiac monitoring [facility] Start: 09-17-2022 Care regimes management [facility] Start: 09-17-2022 Catheterization of vein [facility] Start: 09-17-2022 Continuous positive airway pressure ventilation treatment [facility] Start: 09-17-2022 Continuous pulse oximetry [facility] Start: 09-17-2022 Elevation of head of bed [facility] Start: 09-17-2022 Exercises [facility] Start: 09-17-2022 Fall prevention [facility] Start: 09-17-2022 Implementation of planned interventions [facility] Start: 09-17-2022 Inhalation therapy procedure [facility] Start: 09-17-2022 Insertion of catheter into peripheral vein [facility] Start: 09-17-2022 Introduction of urinary catheter [facility] Start: 09-17-2022 Measuring intake and output [facility] Start: 09-17-2022 Notification of physician [facility] Start: 09-17-2022 Oxygen therapy [facility] Start: 09-17-2022 End: 09-18-2022 Patient referral to dietitian [facility] Start: 09-17-2022 Providing care according to standard [facility] Start: 09-17-2022 Provision of activity privileges [facility] Start: 09-17-2022 Referral to occupational therapist [facility] Start: 09-17-2022 Referral to service [facility] Start: 09-17-2022 Speech therapy assessment [facility] Start: 09-17-2022 Tobacco use cessation education [facility] Start: 09-17-2022 [facility] Start: 09-17-2022 Admission procedure [facility] Start: 09-01-2022 Patient discharge [facility] Start: 08-31-2022 Patient referral [facility] Work Phone: Start: 08-31-2022 Following clinical pathway protocol [facility] Start: 08-31-2022 Pulse taking [facility] Start: 08-31-2022 Cardiac monitoring [facility] Start: 08-31-2022 Cardiac rehabilitation - phase 1 [facility] Start: 08-31-2022 Cardiac rehabilitation - phase 2 [facility] Start: 08-31-2022 Notification of physician [facility] Start: 08-31-2022 Oxygen therapy [facility] Start: 08-31-2022 Patient discharge [facility] Start: 08-31-2022 Taking patient vital signs [facility] Start: 08-31-2022 Vascular disease risk assessment [facility] Start: 08-31-2022 Vital signs measurements [facility] Start: 08-31-2022 End: 08-31-2022 [facility] Start: 08-31-2022 Admission procedure [facility] Start: 11-16-2021 [facility] Work Phone: Start: 01-10-2021 End: 01-10-2021 Admission to same day surgery center 01/10/2021 Surgery Cardiology Eladio Ingram MD [facility] [address] [facility] [address] [place] [address] Left Heart Cath Possible PTCA/Stent [facility] [employer] Comment on above: Left Heart Cath Possible [facility]CA/Stent Start: 01-10-2021 Subsequent hospital visit by physician 01/10/2021 Hospital Encounter Eladio Ingram MD [address] [facility] [address] [place] [address] [facility] Procedural Care Unit Start: 01-01-2021 Influenza vaccination [facility] Start: 12-26-2020 End: 12-26-2020 Patient encounter procedure 12/26/2020 Office Visit Cardiology Marycarmen Rodriguez, [address] [facility] [place] [address] [phone] Eladio Ingram MD [address] [facility] [facility] [address] [place] [address] [phone] [facility] Office Start: 10-15-2020 End: 10-15-2020 Patient encounter procedure 10/15/2020 Appointment Cardiology Ealdio Ingram MD [address] [facility] [address] [place] [address] [phone] [facility] Start: 10-09-2020 End: 10-09-2020 Patient encounter procedure 10/09/2020 Office Visit Cardiology Fernanda Acuña, TITLE I DIRECTOR [address] [place] [address] [phone] [facility] Office Start: 11-05-2017 Prostate specific antigen measurement PSA Level [facility] Start: 06-01-2017 HEMOGLOBIN A1C HEMOGLOBIN A1C [facility] Work Phone: Start: 06-01-2017 Hemoglobin A1c measurement A1C [facility] Start: 06-01-2017 Hemoglobin A1c/Hemoglobin.total mass fraction (Bld) HEMOGLOBIN A1C [facility] Work Phone: Start: 01-01-2017 SEQUENTIAL INFLUENZA VACCINE (#1) SEQUENTIAL INFLUENZA VACCINE (#1) [facility] Work Phone: Start: 12-17-2016 Ambulatory 12/17/2016 Office Visit Cardiology Eladio Ingram MD [address] [facility] [address] [place] [address] [phone] [facility] Start: 2010 ABDOMINAL AORTIC ULTRASOUND ABDOMINAL AORTIC ULTRASOUND [facility] Work Phone: Start: 2010 Fall risk assessment Falls Risk Assessment [facility] Start: 2010 PNEUMOCOCCAL VACCINE AGE 65+ (1 of 2 - PCV13) PNEUMOCOCCAL VACCINE AGE 65+ (1 of 2 - PCV13) [facility] Work Phone: Start: 2005 Zoster vacc, sc ZOSTER VACCINE [facility] Work Phone: Start: 08-01-1995 Administration of herpes zoster vaccine Zoster Vaccines (1 of 2) [facility] Start: 08-01-1995 Screening for malignant neoplasm of colon [facility] Start: 08-01-1963 Hepatitis C screening Hepatitis C Screening [facility] Start: 1957 COVID-19 Vaccine (1) COVID-19 Vaccine (1) [facility] Start: 08-01-1955 3 comp foot exam completed FOOT EXAM [facility] Work Phone: Start: 08-01-1955 Albumin Test strip detection limit <= 20 mg/L mass conc (U) URINE MICROALBUMIN [facility] Work Phone: Start: 08-01-1955 Diabetic foot examination Foot Exam [facility] Start: 08-01-1955 Microalbumin measurement, urine, quantitative Urine Microalbumin [facility] Start: 08-01-1955 Ophthalmic examination and evaluation OPHTHALMOLOGY EXAM [facility] Start: 08-01-1955 FOOT EXAM FOOT EXAM [facility] Work Phone: Start: 08-01-1955 OPHTHALMOLOGY EXAM OPHTHALMOLOGY EXAM [facility] Work Phone: Start: 08-01-1955 URINE MICROALBUMIN URINE MICROALBUMIN [facility] Work Phone: Start: 08-01-1951 Pneumococcal Vaccine: Age 65+ (1 of 2 - PPSV23) Pneumococcal Vaccine: Age 65+ (1 of 2 - PPSV23) [facility] Start: 1948 History and physical examination, annual for health maintenance Wellness Visit [facility] Start: 1945 Colonoscopy COLONOSCOPY [facility] Work Phone: Start: 1945 Tetanus vaccination Tetanus: Every 10yrs [facility] Start: 1945 [facility] Work Phone: Start: 1945 End: 1945 HEPATITIS C SCREENING HEPATITIS C SCREENING [facility] Work Phone: Start: 1945 End: 1945 TETANUS EVERY 10 YR TETANUS EVERY 10 YR [facility] Work Phone: Alanine aminotransfe rase [Enzymatic activity/volume] in Serum or Plasma [facility] Alanine aminotransfe rase [Enzymatic activity/volume] in Serum or Plasma [facility] Albumin [Mass/volume ] in Serum or Plasma [facility] Albumin [Mass/volume ] in Serum or Plasma [facility] Alkaline phosphatase [Enzymatic activity/volume] in Serum or Plasma [facility] Alkaline phosphatase [Enzymatic activity/volume] in Serum or Plasma [facility] Anion gap in Serum or Plasma [facility] Anion gap in Serum or Plasma [facility] End: 12-26-2021 Basic metabolic 2000 panel - Serum or Plasma Basic metabolic panel Lab Routine 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, 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) Essential hypertension 1 Occurrences starting 12/26/2020 until 12/26/2021 [facility] Comment on above: 1 Occurrences starting 12/26/2020 until 12/26/2021 Basic metabolic 1999 panel - Serum or Plasma Basic metabolic panel Lab Routine 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, 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) Essential hypertension 12/26/2020 11:28 AM EDT [facility] Basic metabolic 2007 panel with ionized calcium - Serum or Plasma [facility] Basic metabolic 2007 panel with ionized calcium - Serum or Plasma [facility] Basic metabolic 2007 panel with ionized calcium - Serum or Plasma [facility] End: 12-17-2017 Basic metabolic panel [AGGREGATE] Basic metabolic panel Routine MATTHEW (obstructive sleep apnea) 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 without angina pectoris 1 Occurrences starting 12/17/2016 until 12/17/2017 [facility] Work Phone: Bilirubin, total measurement [facility] Bilirubin, total measurement [facility] Blood chemistry [facility] BUN/Creatinine ratio [facility] BUN/Creatinine ratio [facility] Calcium [Mass/volume ] in Serum or Plasma [facility] Calcium [Mass/volume ] in Serum or Plasma [facility] Carbon dioxide, tota l [Moles/volume] in Central venous blood [facility] Carbon dioxide, tota l [Moles/volume] in Central venous blood [facility] Catheterization of l eft heart [facility] Catheterization of l eft heart [facility] Catheterization of l eft heart [facility] CBC W Auto Different ial panel - Blood [facility] CBC W Auto Different ial panel - Blood [facility] End: 12-26-2021 Complete blood count with white cell differential, manual CBC and differential Lab Routine 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, 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) Essential hypertension 1 Occurrences starting 12/26/2020 until 12/26/2021 [facility] Work Phone: Comment on above: 1 Occurrences starting 12/26/2020 until 12/26/2021 Complete blood count with white cell differential, manual CBC and differential Lab Routine 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, 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) Essential hypertension 12/26/2020 11:28 AM EDT [facility] Creatinine [Mass/vol ume] in Serum or Plasma [facility] Creatinine [Mass/vol ume] in Serum or Plasma [facility] End: 01-10-2022 CT Angiogram Aorta Chest Abdomen Pelvis CT Angiogram Aorta Chest Abdomen Pelvis Imaging Routine 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 with angina pectoris (HCC) 1 Occurrences starting 01/10/2021 until 01/10/2022 [facility] Work Phone: Comment on above: 1 Occurrences starting 01/10/2021 until 01/10/2022 End: 12-04-2021 Echocardiography Echocardiogram complete Echocardiography Routine Shortness of breath 1 Occurrences starting 10/04/2020 until 12/04/2021 [facility] Comment on above: 1 Occurrences starting 10/04/2020 until 12/04/2021 Erythrocyte mean cor puscular volume determination [facility] Erythrocyte mean cor puscular volume determination [facility] Erythrocyte mean cor puscular volume determination [facility] Glucose [Mass/volume ] in Serum or Plasma [facility] Glucose [Mass/volume ] in Serum or Plasma [facility] Hematocrit [Volume F raction] of Blood [facility] Hematocrit [Volume F raction] of Blood [facility] Hematocrit [Volume F raction] of Blood [facility] Hemoglobin [Mass/vol ume] in Blood [facility] Hemoglobin [Mass/vol ume] in Blood [facility] Hemoglobin [Mass/vol ume] in Blood [facility] INR in Blood by Coag ulation assay [facility] LEFT HEART CATH POSS IBLE PTCA/STENT LEFT HEART CATH POSSIBLE PTCA/STENT [facility] Leukocytes [#/volume ] in Blood [facility] Leukocytes [#/volume ] in Blood [facility] Leukocytes [#/volume ] in Blood [facility] End: 12-17-2017 Magnesium Magnesium Routine MATTHEW (obstructive sleep apnea) 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 without angina pectoris 1 Occurrences starting 12/17/2016 until 12/17/2017 [facility] Work Phone: Mean corpuscular hem oglobin concentration determination [facility] Mean corpuscular hem oglobin concentration determination [facility] Mean corpuscular hem oglobin concentration determination [facility] Mean corpuscular hem oglobin determination [facility] Mean corpuscular hem oglobin determination [facility] Mean corpuscular hem oglobin determination [facility] Measurement of renal function [facility] Measurement of renal function [facility] Measurement of respi ratory function [facility] Work Phone: Natriuretic peptide. B prohormone N-Terminal [Mass/volume] in Serum or Plasma [facility] Natriuretic peptide. B prohormone N-Terminal [Mass/volume] in Serum or Plasma [facility] NM Heart Views W str ess and W radionuclide IV [facility] Patient Education [facility] Work Phone: Patient referral [facility] Work Phone: Platelets [#/volume] in Blood [facility] Platelets [#/volume] in Blood [facility] Platelets [#/volume] in Blood [facility] Potassium measurement [facility] Potassium measurement [facility] Red blood cell count [facility] Red blood cell count [facility] Red blood cell count [facility] Red cell distributio n width determination [facility] Red cell distributio n width determination [facility] Red cell distributio n width determination [facility] Serum chloride measurement [facility] Serum chloride measurement [facility] Sodium measurement [facility] Sodium measurement [facility] Total protein measurement [facility] Total protein measurement [facility] Troponin T.cardiac [Mass/volume] in Serum or Plasma by High sensitivity method [facility] Troponin T.cardiac [Mass/volume] in Serum or Plasma by High sensitivity method [facility] Troponin T.cardiac [Mass/volume] in Serum or Plasma by High sensitivity method [facility] Troponin T.cardiac [Mass/volume] in Serum or Plasma by High sensitivity method [facility] Troponin T.cardiac [Mass/volume] in Serum or Plasma by High sensitivity method [facility] Troponin T.cardiac [Mass/volume] in Serum or Plasma by High sensitivity method [facility] Urea nitrogen [Mass/ volume] in Serum or Plasma [facility] Urea nitrogen [Mass/ volume] in Serum or Plasma [facility] XR Chest PA and Lateral [facility] Immunizations Immunization Date Immunization Notes Care Provider Fa cility 11-26-2024 tetanus toxoid, redu terry diphtheria toxoid, and acellular pertussis vaccine, adsorbed Dr. Marycarmen Rodriguez DO Work Phone: [facility] 02-19-2023 influenza, injectabl e, quadrivalent, preservative free Dr. Marycarmen Rodriguez DO Work Phone: [facility] 01-27-2022 influenza, injectabl e, quadrivalent, preservative free Dr. Marycarmen Rodriguez DO Work Phone: [facility] 09-04-2021 Covid (Curiosidy) Dr. Marycarmen hough DO Work Phone: [facility] 02-24-2021 Covid (Pfizer) Dr. Marycarmen hough DO Work Phone: [facility] 06-27-2020 Covid (Pfizer) Dr. Marycarmen hough DO Work Phone: [facility] 05-31-2020 Covid (Pfizer) Dr. Marycarmen hough DO Work Phone: [facility] 02-20-[address] Marycarmen Rodriguez Work Phone: [facility] 02-14-[address] Marycarmen Rodriguez Work Phone: [facility] 01-31-[address] Marycarmen Rodriguez Work Phone: [facility] 04-12-2017 influenza, high dose seasonal, preservative-free Dr. Marycarmen Rodriguez DO Work Phone: [facility] 11-29-2016 HEMOGLOBIN A1C [facility] Work Phone: 08-16-2014 pneumococcal polysaccharide vaccine, [address] Marycarmen Rodriguez DO Work Phone: [facility] 08-05-2005 hepatitis A vaccine, pediatric/adolescent dosage, [address] Marycarmen Rodriguez DO Work Phone: [facility] 01-14-2005 hepatitis A vaccine, pediatric/adolescent dosage, [address] Marycarmen Rodriguez DO Work Phone: [facility] 01-14-2005 TD(adult) unspecifie d formulation Dr. Marycarmen Rodriguez DO Work Phone: [facility] Payers Date Payer Category Payer Self-pay [id number] 2019 Unknown [id number] 1. [id number] 2019 Unknown [id number] 2012 Unknown [id number] 2.1 6.840.1.258504.3.249.13 2010 Medicare [id number] 2.16 .840.1.232814.3.249.13 2010 Medicare [id number] 1.2 .840.043832.1.13.385.2.7.3.216468.315 2010 Medicare [id number] 2010 Medicare [id number] 1945 Unknown [id number] 2.16. 840.1.890087.3.579.2.594 1945 Unknown [id number] 2.16. 840.1.253059.3.579.2.902 1945 Unknown [id number] 2.16. 840.1.748272.3.579.2.903 1945 Unknown [id number] 2.16. 840.1.947571.3.579.2.903 1945 Unknown [id number] 2.16. 840.1.276368.3.579.2.903 1945 Unknown [id number] 2.16. 840.1.509771.3.579.2.903 1945 Unknown [id number] 2.16. 840.1.006870.3.579.2.903 1945 Unknown [id number] 2.16. 840.1.769726.3.579.2.903 1945 Unknown [id number] 2.16. 840.1.588596.3.579.2.903 1945 Unknown [id number] 2.16. 840.1.723065.3.579.2.903 Unknown [id number] 2.16.8 40.1.279676.3.579.2.462 Unknown [id number] 2.16.8 40.1.346329.3.579.2.462 Unknown [id number] 2.16.8 40.1.064386.3.579.2.462 Unknown [id number] 2.16.8 40.1.583414.3.579.2.462 Unknown [id number] 2.16.8 40.1.944246.3.579.2.462 Unknown [id number] 2.16.8 40.1.864200.3.579.2.462 Unknown [id number] 2.16.8 40.1.369963.3.579.2.462 Unknown [id number] 2.16.8 40.1.086399.3.579.2.462 Unknown [id number] 2.16.8 40.1.957395.3.579.2.462 Unknown [id number] 2.16.8 40.1.671104.3.579.2.462 Unknown [id number] 2.16.8 40.1.514720.3.579.2.462 Unknown [id number] 2.16.8 40.1.581361.3.579.2.462 Unknown [id number] 2.16.8 40.1.156220.3.579.2.462 Unknown [id number] 2.16.8 40.1.026403.3.579.2.462 Unknown [id number] 2.16.8 40.1.920415.3.579.2.462 Unknown [id number] 2.16.8 40.1.113043.3.579.2.462 Unknown [id number] 2.16.8 40.1.638335.3.579.2.462 Unknown [id number] 2.16.8 40.1.525114.3.579.2.462 Unknown [id number] 2.16.8 40.1.490832.3.579.2.462 Unknown [id number] 2.16.8 40.1.227864.3.579.2.462 Unknown [id number] 2.16.8 40.1.688609.3.579.2.462 Unknown [id number] 2.16.8 40.1.260623.3.579.2.462 Unknown [id number] 2.16.8 40.1.437848.3.579.2.462 Unknown [id number] 2.16.8 40.1.559391.3.579.2.462 Unknown [id number] 2.16.8 40.1.704081.3.579.2.462 Unknown [id number] 2.16.8 40.1.336446.3.579.2.462 Unknown [id number] 2.16.8 40.1.974898.3.579.2.462 Unknown [id number] 2.16.8 40.1.136819.3.579.2.462 Unknown [id number] 2.16.8 40.1.483308.3.579.2.462 Unknown [id number] 2.16.8 40.1.466418.3.579.2.462 Unknown [id number] 2.16.8 40.1.926883.3.579.2.462 Unknown [id number] 2.16.8 40.1.242509.3.579.2.462 Unknown [id number] 2.16.8 40.1.051928.3.579.2.462 Unknown [id number] 2.16.8 40.1.769997.3.579.2.462 Unknown [id number] 2.16.8 40.1.426222.3.579.2.462 Unknown [id number] 2.16.8 40.1.867656.3.579.2.462 Unknown [id number] 2.16.8 40.1.538472.3.579.2.462 Unknown [id number] 2.16.8 40.1.820842.3.579.2.462 Unknown [id number] 2.16.8 40.1.589226.3.579.2.462 Unknown [id number] 2.16.8 40.1.283547.3.579.2.462 Unknown [id number] 2.16.8 40.1.705503.3.579.2.462 Unknown [id number] 2.16.8 40.1.723277.3.579.2.462 Unknown [id number] 2.16.8 40.1.730871.3.579.2.462 Unknown [id number] 2.16.8 40.1.215935.3.579.2.462 Unknown [id number] 2.16.8 40.1.176986.3.579.2.462 Unknown [id number] 2.16.8 40.1.464743.3.579.2.462 Unknown [id number] 2.16.8 40.1.329807.3.579.2.462 Unknown [id number] 2.16.8 40.1.117059.3.579.2.462 Unknown [id number] 2.16.8 40.1.427293.3.579.2.462 Unknown [id number] 2.16.8 40.1.117108.3.579.2.462 Unknown [id number] 2.16.8 40.1.380820.3.579.2.462 Unknown [id number] 2.16.8 40.1.201464.3.579.2.462 Unknown [id number] 2.16.8 40.1.131443.3.579.2.462 Unknown [id number] 2.16.8 40.1.340336.3.579.2.462 Unknown [id number] 2.16.8 40.1.246009.3.579.2.462 Unknown [id number] 2.16.8 40.1.178665.3.579.2.462 Unknown [id number] 2.16.8 40.1.640368.3.579.2.462 Unknown [id number] 2.16.8 40.1.690258.3.579.2.462 Unknown [id number] 2.16.8 40.1.880996.3.579.2.462 Unknown [id number] 2.16.8 40.1.486192.3.579.2.462 Unknown [id number] 2.16.8 40.1.724467.3.579.2.462 Unknown [id number] 2.16.8 40.1.491256.3.579.2.462 Unknown [id number] 2.16.8 40.1.203863.3.579.2.462 Unknown [id number] 2.16.8 40.1.715191.3.579.2.462 Unknown [id number] 2.16.8 40.1.543847.3.579.2.462 Unknown [id number] 2.16.8 40.1.211378.3.579.2.462 Unknown [id number] 2.16.8 40.1.407572.3.579.2.462 Unknown [id number] 2.16.8 40.1.770893.3.579.2.462 Unknown [id number] 2.16.8 40.1.990660.3.579.2.462 Social History Date Type Detail Facility Start: 12-17-2016 End: 12-15-2024 Tobacco smoking status MDIS Former smoker [facility] Start: 12-17-2016 End: 10-09-2020 Cigarettes smoked current (pack per day) - Reported [facility] Work Phone: Start: 1945 Sex Assigned At Not on file [facility] Work Phone: Start: 12-17-2016 End: 10-09-2020 Tobacco use and exposure Never used [facility] Start: 12-17-2016 End: 01-10-2021 Alcohol intake Current non-drinker of alcohol (finding) [facility] Start: 03-10-2016 Tobacco Comment quit 25+ yrs ago [facility] Exposure to SARS-CoV -2 (event) Not sure [facility] Start: 08-01-2021 End: 12-21-2022 Tobacco smoking status NHIS Unknown if ever smoked [facility] Start: 01-12-2020 None [facility] Start: 01-12-2020 Spouse/ Signif icant Other [facility] Start: 11-18-2020 Non-smoker [facility] Start: 1945 Sex Assigned At Male [facility] Start: 07-13-2024 End: 08-08-2024 Sex Male (finding) [facility] Medical Equipment Procedure Code Equipment Code Equipment Origin al Text Equipment Identifier Dates Stent 3.50 X 23 [facility] Rx - [id number] ()[id number] FDA Start: 01-04-2015 ()[id number] [id number] FDA Start: 08-31-2022 ()[id number] FDA Start: 08-31-2022 ()[id number] [id number] FDA Start: 11-27-2024 ()[id number] [id number] FDA Start: 11-30-2024 ()[id number] [id number] FDA Start: 11-30-2024 Goals Date Patient Goal Desired Activity /State Functional Status Date Assessment Result Facility 12-17-2024 Functional status Ambulates [facility] Work Phone: 12-08-2024 Functional status Bedrest [facility] Work Phone: 12-06-2024 Functional status Ambulates [facility] Work Phone: 12-05-2024 Functional status Ambulates [facility] Work Phone: 12-04-2024 Functional status Poor [facility] Work Phone: 12-02-2024 Functional status Bedrest [facility] Work Phone: 11-28-2024 Functional status Ambulates [facility] Work Phone: 11-27-2024 Functional status Dangle Feet [facility] Work Phone: 09-21-2022 Functional status Chair [facility] Work Phone: 09-20-2022 Functional status Assistive Ning lauro Rolling Walker [facility] Work Phone: 09-01-2022 Functional status Activity Ability Indepe ndent [facility] Work Phone: 08-31-2022 Functional status Ambulates [facility] Work Phone: Mental Status Date Assessment Result Facility 12-17-2024 Cognitive function Voice/Name [facility] Work Phone: 12-08-2024 Cognitive function Voice/Name [facility] Work Phone: 12-07-2024 Cognitive function Voice/Name [facility] Work Phone: 12-06-2024 Cognitive function Voice/Name [facility] Work Phone: 12-05-2024 Cognitive function Voice/Name [facility] Work Phone: 12-02-2024 Cognitive function Voice/Name [facility] Work Phone: 12-02-2024 Cognitive function Voice/Name [facility] Work Phone: 11-28-2024 Cognitive function Voice/Name [facility] Work Phone: 11-27-2024 Cognitive function Voice/Name [facility] Work Phone: 09-21-2022 Cognitive function Voice/Name [facility] Work Phone: 09-01-2022 Cognitive function Appropriate;Cooperativ e [facility] Work Phone: 11-16-2021 Cognitive function Voice/Name [facility] Work Phone: 06-10-2021 Cognitive function Level Of Cons ciousness Awake;Alert;Appropriate [facility] Work Phone: Clinical Notes 06-25-2020 to 12-17-2024 Note Date & Type Note Facility 12-17-2024 Note [facility] 12-17-2024 Hospital Discharg e instructions Additional Instructions Date of Discharge: 12/17/24 [facility] Work Phone: 12-16-2024 Progress note Note Date/Time December 17, 2024 1:40pm [facility] Medical Records Department [address] [place] [address] Progress Note - Hospitalist 12/16/24 1843 MR#: [id number] Acct: [id number] Name: ERIBERTO RICO Rep #:[id number] : 1945 79 From: Marycarmen Marlow DO PCP: Dr. Marycarmen Rodriguez, DO Status:ADM IN Location: [place] [address] Reason for Visit Chief Complaint: Chest pain Subjective Subjective Patient was seen and examined today, he had nausea and vomiting today and I elected to have him remain in the hospital for now and reevaluate him tomorrow for possible discharge to his [facility]. 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 Dietitian Will liberalize [...] 75.7 H, Lymph % (Auto) 10.7 L, [place] % (Auto) 12.1 H, Eos % (Auto) [...] multiple medical problems-patient [place] return [place] [facility] when medically stable Total clinical time spent by myself addressing the patient's medical issues, reviewing all of his data, and collaborating patient's care team: 35 minutes Charges/Coding Visit Charges Inpatient E&M: 88071 Subs Hosp L2 12/17/24 1340 <Electronically signed by Marycarmen Marlow DO> Cosigner Signature (if applicable): CC: ~ Signed [facility] Work Phone: 1(523) 661-844308-16-2025 Progress note Author Lance Rodriguez [facility] Note Date/Time December 16, 2024 12 :02pm [facility] Medical Records Department [address] [place] [address] Progress Note 12/16/24 1154 MR#: [id number] Acct: [id number] Name: ERIBERTO RICO Rep #:[id number] : 1945 79 From: Lance Rodriguez MD PCP: Dr. Marycarmen Rodriguez, Status:ADM IN Location: [place] [address] Progress Note He states that his breathing [...] that may raise the possibility of post [place] pericarditis and may explain some of his [...] Cosigner Signature (if applicable): CC: ~ Signed [facility] Work Phone: 1(899) 924-439808-15-2025 History and physical note Author Ramonita Herron [facility] Note Date/Time December 15, 2024 3: 23pm [facility] Medical Records Department [address] [place] [address] H&P Exam - Hospitalist 12/15/24 2708 MR#: [id number] Acct: [id number] Name: ERIBERTO RICO Rep #:[id number] : 1945 79 From: Ramonita Herron MD PCP: Dr. Marycarmen Rodriguez, DO Status:ADM IN Location: [id number]- 1 HPI - General General Date of Admission: 12/15/24 Date of Service: 12/15/24 Chief Complaint: Chest pain HPI Narrative ERIBERTO RICO, is a 79-year-old male history of CKD, heart failure, coronary artery disease, COPD, recent STEMI after an in-stent thrombosis who presented [facility] ED 12/15/2024 for active chest pain. Reportedly [...] legs are actually less swollen than usual. [facility] Medical History Recent ST elevation myocardial infarction (STEMI) Chest pain History of acute inferior wall [place] Acute ST elevation myocardial infarction (STEMI) of [...] attack) Obstructive sleep apnea 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 Type 2 diabetes [...] History household members: spouse and none housing: [facility] Smoking Status: Former smoker quit date: 05/03/98 [...] 79.3 H, Lymph % (Auto) 9.7 L, [place] % (Auto) 9.9, Eos % (Auto) 0.1, Baso % (Auto) 0.2, Absolute Neuts (auto) 11.7 H, Absolute Lymphs (auto) 1.43, Nucleated RBC % 0, PT 16.8 H, INR 1.3, IKMA816.8 H*, Sodium 129 L, Potassium 4.5, Chloride [...] No acute abnormality is seen. Reading Location: [place] [address] Assessment & Plan Assessment/Plan (1) Chest pain: PLAN: Plan #Recurrent chest pain and elevated trop - Patient with history of coronary artery disease with recent stent and subsequent in-stent thrombosis for which she was taken back to the [facility] - He was subsequently discharged but readmitted again as a STEMI alert however heart cath at that time showed no acute process -Trop initially 1137, though this is down from 12/07 when his troponin was 7100, will trend - Cardiology on consult - Cellular Tower Climber examined patient's EKG, looks similar to previous send not taken emergently to [facility] - There is concern that he could have Ric syndrome as he has a small pericardial effusion there is theoretically the risk of post [place] pericarditis, cardiology to initiate colchicine -NSAIDs to [...] 78 Minutes Charges/Coding Visit Charges Inpatient E&M: 61355 Init Hosp L3 12/15/24 1523 <Electronically signed by Ramonita Herron MD> Cosigner Signature (if applicable): CC: Dr. Marycarmen Rodriguez, DO; Dr. Ramonita Herron MD~ Signed [facility] Work Phone: 1(969) 801-469108-15-2025 Consult note Author Sunil Faye [facility] Note Date/Time December 15, 2024 2: 19pm [facility] Medical Records Department [address] [place] [address] Consultation - Cardiology 12/15/24 1337 MR#: [id number] Acct: [id number] Name: ERIBERTO RICO Rep #:[id number] : 1945 79 From: Sunil Faye MD PCP: Dr. Marycarmen Rodriguez, DO Status:REG [...] that may raise the possibility of post [place] pericarditis and may explain some of his [...] diabetes mellitus without complications: QUALIFIERS: Diabetes mellitus ocean transportation intermediary insulin use: without custodial use Qualified Code(s): E11.9 - Type 2 [...] 1100 compared to the last admission December 11 7000. His EKG continues to demonstrate significant ST [...] diabetes mellitus, and remote history of TIA [facility] Medical History Recent ST elevation myocardial infarction (STEMI) Chest pain History of acute inferior wall [place] Acute ST elevation myocardial infarction (STEMI) of [...] attack) Obstructive sleep apnea 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 Type 2 diabetes [...] History household members: spouse and none housing: [facility] Smoking Status: Former smoker quit date: 05/03/98 [...] 79.3 H, Lymph % (Auto) 9.7 L, [place] % (Auto) 9.9, Eos % (Auto) 0.1, [...] 79.3 H, Lymph % (Auto) 9.7 L, [place] % (Auto) 9.9, Eos % (Auto) 0.1, [...] No acute abnormality is seen. Reading Location: [facility] Risk Score for UA/STEMI Assesmment (YES = 1) Risk Stratification Applicable: No 12/15/24 1419 <Electronically signed by Sunil Faye MD> Cosigner Signature (if applicable): CC: Dr. Marycarmen Rodriguez, ~ Signed [facility] Work Phone: 1(720) 570-605908-15-2025 Discharge summary Author Payal Weldon [facility] Note Date/Time December 15, 2024 1: 39pm [facility] Medical Records Department [address] [place] [address] Emergency Department Summary 12/15/24 MR#: [id number] Acct: [id number] Name: ERIBERTO RICO Rep #:[id number] : [...] moderately. Denies any leg edema, fevers, cough. [facility] Medical History Recent ST elevation myocardial infarction (STEMI) Chest pain History of acute inferior wall [place] Acute ST elevation myocardial infarction (STEMI) of [...] attack) Obstructive sleep apnea 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 Type 2 diabetes [...] History household members: spouse and none housing: [facility] Smoking Status: Former smoker quit date: 05/03/98 [...] room air. EKG showing ventricular rate 98, AL 186, QTc 357. Left axis deviation. Compared [...] 79.3 H Lymph % (Auto) 9.7 L [place] % (Auto) 9.9 Eos % (Auto) 0.1 [...] No acute abnormality is seen. Reading Location: [facility] Chest x-ray independently interpreted myself showing cardiomegaly. Largely unchanged from previous compared on 12/07/2024 EKG Initial EKG: Attestation: I personally reviewed and interpreted this EKG as follows: Interpretation: Sinus Rhythm Comments: EKG independently interpreted by myself showing evidence of normal sinus rhythm. Ventricular rate 98, AL 186, QTc 357. Left axis deviation. Compared to previous EKG on 12/07/2024 ST elevation in lead III largely unchanged. Concerned that there may be slightly more elevation in lead II and V6 compared to 12/07 concerning for new ischemia. STEMI alert activated. Prior EKG tracings: available for review (12/07/24) Management Discussion w/another healthcare provider: Hospitalist and Medical Authorization Specialist Discharge Plan Dx/Rx/DC Orders Clinical Impression: Chest pain Disposition Disposition: Acute Care Hospital [facility] What to do if you have Problems For any increased pain, shortness of breath, bleeding, nausea or vomiting, chestpain, or any unexpected problems, contact your Primary Care Provider. Call [facility] ([phone]) or report to the closest Emergency Room. Call 911 if necessary. 12/15/24 1816 <Electronically signed by Payal Weldon DO> Cosigner Signature (if applicable): CC: Dr. Marycarmen Rodriguez DO ~ Signed [facility] Work Phone: 1(705) 311-254808-15-2025 Radiology Diagnostic study [facility]08-08-2025 Discharge summary Author Alex Sanon [facility] Note Date/Time December 08, 2024 12: 26pm [facility] Medical Records Department [address] [place] [address] Discharge Summary 12/08/24 1222 MR#: [id number] Acct: [id number] Name: ERIBERTO RICO Rep #:[id number] : 1945 79 From: Alex Sanon MD PCP: Dr. Marycarmen Rodriguez DO Status:ADM EDMUND Location: [place] [address] Providers Date of Admission: 12/07/24 Primary Care Physician: Dr. Marycarmen Rodriguez DO Reason For Visit: SHORTNESS OF BREATH. 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 [...] his ECF 2. Recent acute inferior wall [place] ? This was complicated by PLV dissection [...] ? Patient was recently [place] a [place] [facility] [place] plan is for patient to be [...] 74.1 H, Lymph % (Auto) 11.4 L, [place] % (Auto) 12.1 H, Eos % (Auto) [...] probability scan for pulmonary embolism. Reading Location: [id number] D/C Instructions Discharge Activity: Return to Normal [...] Uncertain Cause Additional Instructions / Restrictions: The inspector penetrant wanted to make sure you are taking [...] in before D/C Order can be placed): [facility]dc Facility Charges/Coding Visit Charges Inpatient E&M: 57376 Disch Hosp >30min 12/08/24 1226 <Electronically signed by Alex Sanon MD> Cosigner Signature (if applicable): CC: Dr. Alex Sanon MD; Dr. Marycarmen Rodriguez DO~ Signed [facility] Work Phone: 1(195) 250-882108-08-2025 [facility]08-08-2025 Nuclear medicine Diagnostic study [facility]08-08-2025 Progress note Author Alex Sanon [facility] Note Date/Time December 08, 2024 9:2 1am [facility] Medical Records Department [address] [place] [address] Progress Note - Hospitalist 12/08/2434 MR#: [id number] Acct: [id number] Name: ERIBERTO RICO Rep #:[id number] : 1945 79 From: Alex Sanon MD PCP: Dr. Marycarmen Rodriguez DO Status:ADM EDMUND Location: [place] [address] Subjective Subjective Patient is a 79-year-old gentleman with recent history of acute inferior STEMI which was complicated by distal PLV dissection who was [place] [facility] brought back with shortness of breath. [...] 79.0 H, Lymph % (Auto) 7.9 L, [place] % (Auto) 11.5 H, Eos % (Auto) [...] IMPRESSION: No acute cardiopulmonary process Reading Location: [facility] Physical Exam Narrative GENERAL: cooperative HEENT: Atraumatic; [...] PLV dissection who was discharged [place] a [place] [facility] [place] brought back with shortness of breath. Patient was found to have elevated D-dimer admitted to monitored bed VQ scan ordered for subsequent evaluation 1. Exertional dyspnea ? Patient was found to have elevated D-dimer admitted to monitored bed VQ scan ordered for subsequent evaluation 2. Recent acute inferior wall [place] ? This was complicated by PLV dissection [...] ? Patient was recently [place] [facility] [place] plan is for patient to be [...] Subcu heparin Charges/Coding Visit Charges Inpatient E&M: 56377 Subs Hosp L2 12/08/24 0921 <Electronically signed by Alex Sanon MD> Cosigner Signature (if applicable): CC: ~ Signed [facility] Work Phone: 1(522) 303-655508-07-2025 History and physical note Author Shaan Santos [facility] Note Date/Time December 07, 2024 4:4 8pm [facility] Medical Records Department [address] [place] [address] H&P Exam - Hospitalist 12/07/24 1633 MR#: [id number] Acct: [id number] Name: ERIBERTO RICO Rep #:[id number] : 1945 79 From: Shaan Santos DO PCP: Dr. Marycarmen Rodriguez, DO Status:ADM EDMUND Location: [place] [address] HPI - General General Date of Service: [...] currently on room air and breathing comfortably. [facility] Medical History Anxiety Depression Diabetes Kidney disease [...] attack) Obstructive sleep apnea 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 Type 2 diabetes [...] History household members: spouse and none housing: [facility] Smoking Status: Former smoker quit date: 05/03/98 [...] 79.0 H, Lymph % (Auto) 7.9 L, [place] % (Auto) 11.5 H, Eos % (Auto) [...] 7122 H* D, NT pro BNP II 2036H 12/07/24 13:00: Troponin T Hi Sens 2 Hr 6442 H* Imaging Radiology Impression Chest X-Ray 12/07/24 10:59 IMPRESSION: No acute cardiopulmonary process Reading Location: [id number] Assessment & Plan Assessment/Plan (1) Shortness of [...] at bedside. Charges/Coding Visit Charges Inpatient E&M: 63551 Init Hosp L3 12/07/24 1644 <Electronically signed by Shaan Santos DO> Cosigner Signature (if applicable): CC: Dr. Shaan Santos DO; Dr. Marycarmen Rodriguez DO~ Signed [facility] Work Phone: 1(445) 278-994008-07-2025 Radiology Diagnostic study [facility]08-06-2025 Consult note Author Cyndie Frye [facility] Note Date/Time December 06, 2024 12: 22pm [facility] Medical Records Department [address] [place] [address] Counseling Note - Pharmacy 12/06/24 1222 MR#: [id number] Acct: [id number] Name: ERIBERTO RICO Rep #:[id number] : 1945 79 From: Cyndie Frye PCP: Dr. Marycarmen Jennifer, DO Status:ADM IN [facility] [place] [facility] Reconciliation Pharmacy Service has performed discharge [...] Signature (if applicable): Date CC: ~ Signed [facility] Work Phone: 1([phone]) 792-349008-06-2025 Hospital Discharge instructionsAdditional Instructions Date of Discharge: 12/06/24[facility] Work Phone: 1([phone]) 855-339908-06-2025 Discharge summary Author Alex Sanon [facility] Note Date/Time December 06, 2024 11: 59am [facility] Medical Records Department [address] [place] [address] Transfer to [facility] MR#: [id number] Acct: [id number] Name: ERIBERTO RICO Rep #:[id number] : 1945 79 From: Alex Sanon MD PCP: Dr. Marycarmen Rodriguez, DO Status:ADM IN Certification of patient admission REQUIRED AT TIME OF ADMISSION. I CERTIFY THAT [facility] ARE REQUIRED TO BE GIVEN ON AN IN-PATIENT BASIS BECAUSE OF THE ABOVE NAMED PATIENT'S NEED FOR HALFWAY CARE ON A CONTINUING BASIS FOR THE CONDITION(S) FOR WHICH HE/SHE WAS RECEIVING IN-PATIENT HOSPITAL SERVICES PRIOR TO HIS/HER TRANSFER [facility]. 12/06/24 1159<Electronically signed by Alex Sanon MD> [...] 1. Recent history of acute inferior wall [place] with persistent EKG changes; episode of ventricular [...] ? Requested for PT OT eval and executive secretary social welfare to assist with discharge planning ? 12/06/2024 plan is for [place] be [place] [facility] [place] pending bed availability as well as [...] in before D/C Order can be placed): Fdc Facility 12/06/24 1159 <Electronically signed by Alex Sanon MD> Cosigner Signature (if applicable): CC: Dr. Abraham Ridley DO; Dr. Mickey Simpson MD; Dr. Marycarmen Rodriguez DO;Dr. Ramonita Herron MD ~ [facility] Work Phone: 1(275) 428-593808-06-2025 Discharge summary Author Alex [facility] Note Date/Time December 06, 2024 11: 55am [facility] Medical Records Department [address] [place] [address] Transfer to [facility] MR#: [id number] Acct: [id number] Name: ERIBERTO RICO Rep #:[id number] : 1945 79 From: Alex Sanon MD PCP: Dr. Marycarmen Rodriguez DO Status:ADM IN Certification of patient admission REQUIRED AT TIME OF ADMISSION. I CERTIFY THAT POST-HOSPITAL ECF SERVICES ARE REQUIRED TO BE GIVEN ON AN IN-PATIENT BASIS BECAUSE OF THE ABOVE NAMED PATIENT'S NEED FOR HALFWAY CARE ON A CONTINUING BASIS FOR THE CONDITION(S) FOR WHICH HE/SHE WAS RECEIVING IN-PATIENT HOSPITAL SERVICES PRIOR TO HIS/HER TRANSFER TO [facility]. 12/06/24 1155<Electronically signed by Alex Sanon MD> [...] 1. Recent history of acute inferior wall [place] with persistent EKG changes; episode of ventricular [...] ? Requested for PT OT eval and executive secretary social welfare to assist with discharge planning ? 12/06/2024 plan is for [place] be [place] [facility] [place] pending bed availability as well as [...] in before D/C Order can be placed): Fdc Facility 12/06/24 1155 <Electronically signed by Alex Sanon MD> Cosigner Signature (if applicable): CC: Dr. Abraham Ridley DO; Dr. Mickey Simpson MD; Dr. Marycarmen Rodriguez DO;Dr. Ramonita Herron MD ~ [facility] Work Phone: 1([phone]) [phone] Discharge summary Author Alex [facility] Note Date/Time December 06, 2024 11: 53am [facility] Medical Records Department [address] [place] [address] Discharge Summary 12/06/24 1146 MR#: [id number] Acct: [id number] Name: ERIBERTO RICO Rep #:[id number] : 1945 79 From: Alex Sanon MD PCP: Dr. Marycarmen Rodriguez DO Status:ADM IN Location: [place] [address] Providers Date of Admission: 12/03/24 Date of Discharge: 12/06/24 Primary Care Physician: Dr. Marycarmen Rodriguez DO Consultations 12/03/24 05:42 Consult: Cardiology Routine [...] 1. Recent history of acute inferior wall [place] with persistent EKG changes; episode of ventricular [...] ? Requested for PT OT eval and executive secretary social welfare to assist with discharge planning ? 12/06/2024 plan is for patient to be discharged [place] a [place] [facility] [place] pending bed availability as well as [...] 72.7 H, Lymph % (Auto) 11.6 L, [place] % (Auto) 12.9 H, Eos % (Auto) [...] in before D/C Order can be placed): Fdc Facility Charges/Coding Visit Charges Inpatient E&M: 35151 Disch Hosp >30min 12/06/24 1153 <Electronically signed by Alex Sanon MD> Cosigner Signature (if applicable): CC: Dr. Alex Sanon MD; Dr. Marycarmen Rodriguez DO~ Signed [facility] Work Phone: 1(645) 469-775508-06-2025 [facility]08-06-2025 Progress note Author Alex Sanon [facility] Note Date/Time December 06, 2024 8:4 0am [facility] Medical Records Department [address] [place] [address] Progress Note - Hospitalist 12/06/24 0838 MR#: [id number] Acct: [id number] Name: ERIBERTO RICO Rep #:[id number] : 1945 79 From: Alex Sanon MD PCP: Dr. Marycarmen Rodriguez, DO Status:ADM IN Location: [place] [address] Reason for Visit Chief Complaint: Chest Pain with STEMI alert. Subjective Subjective Patient seen remains physically deconditioned. Was seen in consultation by physical therapy recommendation is for patient to be discharged [place] a [place] [facility] [place] case management subsequently consulted Objective Data [...] 72.7 H, Lymph % (Auto) 11.6 L, [place] % (Auto) 12.9 H, Eos % (Auto) [...] 1. Recent history of acute inferior wall [place] with persistent EKG changes; episode of ventricular [...] of about 30 beats on morning of 8/4. Potassium low so is being repleted aggressively [...] ? Requested for PT OT eval and executive secretary social welfare to assist with discharge planning ? 12/06/2024 plan is for patient to be discharged [place] a [place] [facility] [place] pending bed availability as well as insurance precertification Time spent in the patient's overall evaluation,decision-making process, review of diagnostic data, adjustment of management, discussion with other providers, nursing nursing and ancillary staff involved in patient's care documentation, 36 Minutes Charges/Coding Visit Charges Inpatient E&M: 71846 Subs Hosp L2 Date medically ready for discharge: 12/06/24 Reason for DC delay: Precert pending from insurance 12/06/24 0840 <Electronically signed by Alex Sanon MD> Cosigner Signature (if applicable): CC: ~ Signed [facility] Work Phone: 1(673) 415-919908-06-2025 Progress note Author Marcin Araujo [facility] Note Date/Time December 06, 2024 7:5 1am [facility] Medical Records Department [address] [place] [address] Progress Note - Cardiology 12/06/24 0747 MR#: [id number] Acct: [id number] Name: ERIBERTO RICO Rep #:[id number] : 1945 79 From: Marcin Araujo MD PCP: Dr. Marycarmen Rodriguez, DO Status:ADM IN Location: [place] [address] Subjective Subjective Patient seen and evaluated. Appears [...] 72.7 H, Lymph % (Auto) 11.6 L, [place] % (Auto) 12.9 H, Eos % (Auto) [...] 72.7 H, Lymph % (Auto) 11.6 L, [place] % (Auto) 12.9 H, Eos % (Auto) [...] Assessment/Plan (1) History of acute inferior wall [place]: PLAN: Patient underwent cardiac catheterization and the [...] Cosigner Signature (if applicable): CC: ~ Signed [facility] Work Phone: 1(688) 654-432808-05-2025 Progress note Author Alex Sanon [facility] [facility] Note Date/Time December 05, 2024 10: 29am [facility] Medical Records Department [address] [place] [address] Progress Note - Hospitalist 12/05/24 1019 MR#: [id number] Acct: [id number] Name: ERIBERTO RICO Rep #:[id number] : 1945 79 From: Alex Sanon MD PCP: Dr. Marycarmen Rodriguez, DO Status:ADM IN Location: [place] [address] Reason for Visit Chief Complaint: Chest Pain [...] Intake and Output for Last 24 Hours 08/03/25 08/04/25 08/05/25 23:59 23:59 23:59 Intake Total 640.00 / [...] 1. Recent history of acute inferior wall [place] with persistent EKG changes; episode of ventricular [...] ? Requested for PT OT eval and executive secretary social welfare to assist with discharge planning Time spent in the patient's overall evaluation,decision-making process, review of diagnostic data, adjustment of management, discussion with other providers, nursing nursing and ancillary staff involved in patient's care documentation, 38 Minutes Charges/Coding Visit Charges Inpatient E&M: 79371 Subs Hosp L2 12/05/24 1029 <Electronically signed by lAex Sanon MD> Cosigner Signature (if applicable): CC: ~ Signed [facility] Work Phone: 1(448) 939-880808-05-2025 Progress note Author Marcin Araujo [facility] Note Date/Time December 05, 2024 7:5 3am [facility] Medical Records Department [address] [place] [address] Progress Note - Cardiology 12/05/24 0745 MR#: [id number] Acct: [id number] Name: ERIBERTO RICO Rep #:[id number] : 1945 79 From: Marcin Araujo MD PCP: Dr. Marycarmen Rodriguez, DO Status:ADM IN Location: [place] [address] Subjective Subjective Patient seen and evaluated. Doing [...] Assessment/Plan (1) History of acute inferior wall [place]: PLAN: Patient underwent cardiac catheterization and the [...] discharged. Will also keep magnesiumover 2. 12/05/24 0786 <Electronically signed by Marcin Araujo MD> Cosigner Signature (if applicable): CC: ~ Signed [facility] Work Phone: 1(553) 941-262208-04-2025 Progress note Author Abraham Ridley [facility] Note Date/Time December 04, 2024 2:2 1pm [facility] Medical Records Department [address] [place] [address] Progress Note - Hospitalist 12/04/24 1057 MR#: [id number] Acct: [id number] Name: ERIBERTO RICO Rep #:[id number] : 1945 79 From: Abraham inman DO PCP: Dr. Marycarmen Rodriguez, DO Status:ADM IN Location: [place] [address] Reason for Visit Chief Complaint: Chest Pain [...] 2300 / 2300 Balance -2090 / -3050 -2059 / -2059 Lab / Micro Data 12/04/24 [...] 73.9 H, Lymph % (Auto) 11.1 L, [place] % (Auto) 11.9 H, Eos % (Auto) [...] Patient is a 79-year-old male who presented [facility] ED on 12/02/2024 as a STEMI alert. 1. Recent history of acute inferior wall [place] with persistent EKG changes; episode of ventricular [...] 35 minutes. Charges/Coding Visit Charges Inpatient E&M: 67184 Subs Hosp L2 12/04/24 1421 <Electronically signed by Abraham Ridley DO> Cosigner Signature (if applicable): CC: ~ Signed [facility] Work Phone: 1(193) 102-274908-04-2025 Progress note Author Marcin Araujo [facility] Note Date/Time December 04, 2024 8:5 2am [facility] Medical Records Department [address] [place] [address] Progress Note - Cardiology 12/04/24724 MR#: [id number] Acct: [id number] Name: ERIBERTO RICO Rep #:[id number] : 1945 79 From: Marcin Araujo MD PCP: Dr. Marycarmen Rodriguez DO Status:ADM IN Location: [place] [address] Subjective Subjective Patient seen and evaluated. Sleeping. [...] 2300 / 2300 Balance -2090 / -3050 -2059 / -2059 Lab / Micro Data 12/04/24 05:02 12/04/24 05:02 Labs: Laboratory Results - last 24 hr 12/03/24 07:20: Urine Color Yellow, Urine Clarity Clear, Urine pH 6.0, Ur Specific [place] 1.015, Urine Protein 15 H, Urine Glucose [...] 75.5 H, Lymph % (Auto) 10.5 L, [place] % (Auto) 11.4 H, Eos % (Auto) [...] 73.9 H, Lymph % (Auto) 11.1 L, [place] % (Auto) 11.9 H, Eos % (Auto) [...] Clarity Clear, Urine pH 6.0, Ur Specific [place] 1.015, Urine Protein 15 H, Urine Glucose [...] 75.5 H, Lymph % (Auto) 10.5 L, [place] % (Auto) 11.4 H, Eos % (Auto) [...] 73.9 H, Lymph % (Auto) 11.1 L, [place] % (Auto) 11.9 H, Eos % (Auto) 2.2, Baso % (Auto) 0.3, Absolute Neuts (auto) 7.1, Nucleated RBC % 0, Sodium 137, Potassium 3.1 L, Chloride 96 L, Carbon Dioxide 21.4, Anion Gap 19 H, BUN 49 H, Creatinine 2.53 H, Est GFR (MDRD) Non-Af 25 L, BUN/Creatinine Ratio 19.4, Ahqwupf385 H, Calcium 9.2 Rhythm: EKG: ECHO: Stress [...] Assessment/Plan (1) History of acute inferior wall [place]: PLAN: Patient underwent cardiac catheterization and the [...] PLAN: - On statins, will continue. 12/04/24 0852 <Electronically signed by Marcin Araujo MD> Cosigner Signature (if applicable): CC: ~ Signed [facility] Work Phone: [phone] 218-101808-04-2025 Consult note Author Marcin Araujo [facility] Note Date/Time December 04, 2024 6:4 7am [facility] Medical Records Department [address] [place] [address] Consultation - Cardiology 12/03/24 1241 MR#: [id number] Acct: [id number] Name: ERIBERTO RICO Rep #:[id number] : 1945 79 From: Marcin Araujo MD PCP: Dr. Marycarmen Rodriguez, DO Status:ADM IN Location: [place] [address] Documented by User: Dr. 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 Type 2 diabetes [...] 76.7 H, Lymph % (Auto) 8.9 L, [place] % (Auto) 12.7 H, Eos % (Auto) [...] Calcium 9.1, Troponin T High Sens > 90226 H* D 12/02/24 20:29: Activated Clotting Time 245 H 12/02/24 22:43: Troponin T Hi Sens 2 Hr > 23942 H* 12/03/24 01:17: Troponin T Hi Sens 4Hr > 39418 H* 12/03/24 06:14: POC Glucose 140 H 12/03/24 07:20: Urine Color Yellow, Urine Clarity Clear, Urine pH 6.0, Ur Specific [place] 1.015, Urine Protein 15 H, Urine Glucose [...] 75.5 H, Lymph % (Auto) 10.5 L, [place] % (Auto) 11.4 H, Eos % (Auto) [...] 76.7 H, Lymph % (Auto) 8.9 L, [place] % (Auto) 12.7 H, Eos % (Auto) [...] Clarity Clear, Urine pH 6.0, Ur Specific [place] 1.015, Urine Protein 15 H, Urine Glucose [...] 75.5 H, Lymph % (Auto) 10.5 L, [place] % (Auto) 11.4 H, Eos % (Auto) [...] Assessment/Plan (1) History of acute inferior wall [place]: (2) Coronary artery vasospasm: (3) CHF (congestive heart failure): QUALIFIERS: Heart failure chronicity: acute on chronic Heart failure type: diastolic Qualified Code(s): I50.33 - Acute on chronic diastolic (congestive) heart failure (4) Dyslipidemia: HPI Consult Data Date of Consult: 12/04/24 [facility] Medical History Anemia Diabetes mellitus Chronic kidney [...] kidney disease, stage 3 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 Mickey Simpson MD; Dr. Marycarmen Rodriguez, DO~ Signed [facility] Work Phone: 1(562) 524-616608-03-2025 Progress note Author Ramonita Herron [facility] Note Date/Time December 03, 2024 3:5 7pm [facility] Medical Records Department [address] [place] [address] Progress Note - Hospitalist 12/03/24 1548 MR#: [id number] Acct: [id number] Name: ERIBERTO RICO Rep #:[id number] : 1945 79 From: Ramonita Herron MD PCP: Dr. Marycarmen Rodriguez, Status:ADM IN Location: [place] [address] Reason for Visit Chief Complaint: Chest Pain [...] 76.7 H, Lymph % (Auto) 8.9 L, [place] % (Auto) 12.7 H, Eos % (Auto) [...] Calcium 9.1, Troponin T High Sens > 46326 H* D 12/02/24 20:29: Activated Clotting Time 245 H 12/02/24 22:43: Troponin T Hi Sens 2 Hr > 44288 H* 12/03/24 01:17: Troponin T Hi Sens 4Hr > 52250 H* 12/03/24 06:14: POC Glucose 140 H 12/03/24 07:20: Urine Color Yellow, Urine Clarity Clear, Urine pH 6.0, Ur Specific [place] 1.015, Urine Protein 15 H, Urine Glucose [...] 75.5 H, Lymph % (Auto) 10.5 L, [place] % (Auto) 11.4 H, Eos % (Auto) [...] Recent STEMI -Was emergently taken to the [facility] [employer] [facility] [employer] 11/30 due to a STEMI. Emergent cath [...] on 12/02 and went emergently to the [employer] however no intervention was needed or warranted [...] Herron MD Charges/Coding Visit Charges Inpatient E&M: 96254 Subs Hosp L2 12/03/24 9727 <Electronically signed by Ramonita Herron MD> Cosigner Signature (if applicable): CC: ~ Signed [facility] Work Phone: [phone] 115-436508-03-2025 History and physical note Author Alex Resendez [facility] Note Date/Time December 03, 2024 5:5 6am [facility] Medical Records Department [address] [place] [address] H&P Exam - Hospitalist 12/02/242049 MR#: [id number] Acct: [id number] Name: ERIBERTO RICO Rep #:[id number] : 1945 79 From: Alex Colon DO PCP: Dr. 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 Mr. [...] symptoms are very similar to his previous KY's. There was no report of associated fever,chills, [...] is expected to extend beyond 2 midnights. 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 Patient taken for emergent LHC by [facility] with the patient suspected to have acute coronary vasospasm with no lesion noted so patient will be managed in PCU. Continue present treatment with baby aspirin, ticagrelor and IV heparin. Give acetaminophen as needed for [id number]-efbafocc (level 1-5/10) pain or fever. Give morphine [...] 75 minutes. Charges/Coding Visit Charges Inpatient E&M: 56106 Init Hosp L3 12/03/24 0556 <Electronically signed by Alex Sow DO> Cosigner Signature (if applicable): CC: Dr. Alex Sow DO; Dr. Marycarmen Rodriguez DO~ Signed [facility] Work Phone: 1([phone]) [phone] Discharge summary Author Rasheed Canela [facility] Note Date/Time December 02, 2024 8:5 3pm [facility] Medical Records Department [address] [place] [address] Emergency Department Summary 12/02/24 MR#: [id number] Acct: [id number] Name: ERIBERTO RICO Rep #:[id number] : [...] EKG changes consistent with a ST elevation [place]. 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 Spoke with Dr. Simpson the mutuel cashier. He was made aware of patient's history, EKG findings and prehospital treatment. Lab Data Attestation: I reviewed the patient's lab results. Lab results narrative: EKG was not repeated since prehospital EKG revealed ST elevation [place] with reciprocal changes. CBC reveals mild anemia [...] 76.7 H Lymph % (Auto) 8.9 L [place] % (Auto) 12.7 H Eos % (Auto) [...] healthcare provider: Hospitalist (Dr. Alex Handley) and Medical Authorization Specialist (building materials sales attendant) Critical Care Time Critical Care Time: Yes Critical care time (excluding procedures): 30-74 minutes (15), Including time spent: (History, physical, documentation, prehospital med direction, discussion with , review of prior records and independent rotation of EKG), Discussing w/Patient &/or Family/Manager Rehab (Spoke with who informing that he just left the hospital this afternoon to attend his granddaughter's wedding.), Discussing w/Consultants (building materials sales attendant and hospitalist) and Arranging Admission or Transfer Discharge Plan Dx/Rx/DC Orders Clinical Impression: Acute ST elevation myocardial infarction (STEMI) of inferior wall, Obstructive sleep apnea, Obesity, Chronic kidney disease, Diabetes mellitus, Hyperlipidemia Disposition Disposition: Acute Care Hospital [facility] What to do if you have Problems For any increased pain, shortness of breath, bleeding, nausea or vomiting, chestpain, or any unexpected problems, contact your Primary Care Provider. Call [facility] ([phone]) or report to the closest Emergency Room. Call 911 if necessary. 12/02/242052 <Electronically signed by Rasheed Canela MD> Cosigner Signature (if applicable): CC: Dr. Marycarmen Rodriguez, ~ Signed [facility] Work Phone: 1(254) 298-500808-02-2025 Consult note Author Jamar Tapia [facility] Note Date/Time December 02, 2024 12: 23pm [facility] Medical Records Department [address] [facility] [place] [address] Consultation - Neurology 12/02/24 1207 MR#: [id number] Acct: [id number] Name: ERIEBRTO RICO Rep #:[id number] : 1945 79 From: Jamar Hooker PCP: Dr. Marycarmen Rodriguez, DO Status:ADM IN Location: [place] [id number] Assessment and Plan: Neuro Assessment/Plan ERIBERTO RICO [...] questions or concerns. Stroke to sign off. 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 Epicardial fat. Ordering Physician: Jose Suárez Referring Physician: Marycarmen Rodriguez Performed By: Treva Black, RDCS, RVT Brain CT 12/01/24 19:30 IMPRESSION: 1. No acute intracranial abnormality. 2. Age-related senescent changes. Reading Location: [facility] Active Medications Active Medications Active Medications: [...] mls @ 15 mls/hr 11/30/24 17:25 IV .[id number] PRN Saline Flush Sodium Chloride 250 mls @ 15 mls/hr 11/30/24 17:25 IV .[id number] PRN Additional IVPB Infusion Insulin Human Lispro 0 unit 11/30/24 22:00 12/02/24 06:30 Insulin Lispro 100 Unit/Ml Insuln.Pen SC Not Given ACHS [facility] Protocol Labetalol HCl 10 - 20 mg [...] 10:00 Metolazone 2.5 Mg Tablet PO DAILY [facility] Protocol Metoprolol Succinate 25 mg 12/01/24 10:00 [...] or with change in RN caregiver Freq: [id number] Protocol: Activity Type Activity Date Activity User E-sign Co-sign Detail Recorded Client Recorded Date Recorded By Document 12/01/24 20:15 CD [id number] 12/01/24 20:28 CD 12/01/24 20:15 [facility] Stroke [...] and with change in RN caregiver. Freq: [id number] Protocol: Activity Type Activity Date Activity User E-sign Co-sign Detail Recorded Client Recorded Date Recorded By Document 12/02/24 10:00 GRIS [id number] 12/02/24 10:20 TSTIKA 12/02/24 10:00 [facility] Stroke [...] Cosigner Signature (if applicable): CC: Dr. Jose Suárez MD; Dr. Marycarmen Rodriguez, DO~ Signed [facility] Work Phone: 1([phone]) 869-807808-02-2025 Discharge summary Author Rasheed Burriso [facility] Note Date/Time December 02, 2024 8:5 3pm [facility] Medical Records Department [address] [place] [address] Emergency Department Summary 12/02/24 MR#: [id number] Acct: [id number] Name: ERIBERTO RICO Rep #:[id number] : [...] EKG changes consistent with a ST elevation [place]. 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 Spoke with Dr. Simpson the mutuel cashier. He was made aware of patient's history, EKG findings and prehospital treatment. Lab Data Attestation: I reviewed the patient's lab results. Lab results narrative: EKG was not repeated since prehospital EKG revealed ST elevation [place] with reciprocal changes. CBC reveals mild anemia [...] 76.7 H Lymph % (Auto) 8.9 L [place] % (Auto) 12.7 H Eos % (Auto) [...] healthcare provider: Hospitalist (Dr. Alex Handley) and Medical Authorization Specialist (building materials sales attendant) Critical Care Time Critical Care Time: Yes Critical care time (excluding procedures): 30-74 minutes (15), Including time spent: (History, physical, documentation, prehospital med direction, discussion with , review of prior records and independent rotation of EKG), Discussing w/Patient &/or Family/Manager Rehab (Spoke with who informing that he just left the hospital this afternoon to attend his granddaughter's wedding.), Discussing w/Consultants (building materials sales attendant and hospitalist) and Arranging Admission or Transfer Discharge Plan Dx/Rx/DC Orders Clinical Impression: Acute ST elevation myocardial infarction (STEMI) of inferior wall, Obstructive sleep apnea, Obesity, Chronic kidney disease, Diabetes mellitus, Hyperlipidemia Disposition Disposition: Acute Care Hospital [facility] What to do if you have Problems For any increased pain, shortness of breath, bleeding, nausea or vomiting, chestpain, or any unexpected problems, contact your Primary Care Provider. Call [facility] ([phone]) or report to the closest Emergency Room. Call 911 if necessary. 12/02/242052 <Electronically signed by Rasheed Canela MD> Cosigner Signature (if applicable): CC: Dr. Marycarmen Rodriguez, ~ Signed [facility] Work Phone: 1(810) 414-910208-02-2025 Hospital Discharge instructionsAdditional Instructions 1. It is very important to not miss any doses of your ticagrelor (Brilinta) and aspirin. Please take these as prescribed with no missed doses. If you miss doses you could clot off your stents. Date of Discharge: 12/02/24[facility] Work Phone: 1(772) 716-903408-02-2025 [facility]08-01-2025 Progress note [facility] Note Date/Time December 01, 2024 8:2 6pm [facility] Medical Records Department [address] [place] [address] Progress Note - Hospitalist 12/01/242020 MR#: [id number] Acct: [id number] Name: ERIBERTO RICO Rep #:[id number] : 1945 79 From: Abraham inman DO PCP: Dr. Marycarmen Rodriguez DO Status:ADM IN Location: [place] [address] Hospitalist Note Stroke alert called around 7 PM. Last known well 6:55 PM. Patient reported to AESTHETICS INSTRUCTOR that he had left facial numbness and [...] that he has had several TIAs in thelast and has had similar symptoms with these [...] Cosigner Signature (if applicable): CC: ~ Signed [facility] Work Phone: 1(408) 166-489108-01-2025 Radiology Diagnostic study [facility]08-01-2025 Progress note Author Nickie Danielson [facility] Note Date/Time December 01, 2024 3:5 0pm [facility] Medical Records Department [address] [place] [address] Progress Note - Hospitalist 12/01/24 0713 MR#: [id number] Acct: [id number] Name: ERIBERTO RICO Rep #:[id number] : 1945 79 From: Nickie Danielson DO PCP: Dr. Marycarmen Rodriguez DO Status:ADM IN Location: [place] [address] Reason for Visit Chief Complaint: STEMI Subjective [...] 80.9 H, Lymph % (Auto) 10.1 L, [place] % (Auto) 7.7, Eos % (Auto) 0.4, Baso % (Auto) 0.2, Absolute Neuts (auto) 15.5 H, Absolute Lymphs (auto) 1.93, Nucleated RBC % 0.1, PT 16.1 H, INR 1.3, APTT 112.9 H*, Sodium 135, Potassium 4.4, Chloride 98, Carbon Rbhzwyt90.3 L, Anion Gap 19 H, BUN 45 [...] evidence of acute pulmonary disease. Reading Location: [facility] Physical Exam Const alert, oriented [...] subcu heparin Charges/Coding Visit Charges Inpatient E&M: 32199 Subs Hosp L2 12/01/24 1727 <Electronically signed by Nickie Danielson DO> Cosigner Signature (if applicable): CC: ~ Signed [facility] Work Phone: 1(912) 784-729708-01-2025 Progress note Author Marcin Araujo [facility] Note Date/Time December 01, 2024 7:3 7am [facility] Medical Records Department [address] [place] [address] Progress Note - Cardiology 12/01/24 0734 MR#: [id number] Acct: [id number] Name: ERIBERTO RICO Rep #:[id number] : [...] 80.9 H, Lymph % (Auto) 10.1 L, [place] % (Auto) 7.7, Eos % (Auto) 0.4, Baso % (Auto) 0.2, Absolute Neuts (auto) 15.5 H, Absolute Lymphs (auto) 1.93, Nucleated RBC % 0.1, PT 16.1 H, INR 1.3, APTT 112.9 H*, Sodium 135, Potassium 4.4, Chloride 98, Carbon Rztwelk38.3 L, Anion Gap 19 H, BUN 45 [...] 80.9 H, Lymph % (Auto) 10.1 L, [place] % (Auto) 7.7, Eos % (Auto) 0.4, [...] evidence of acute pulmonary disease. Reading Location: [facility] Physical Exam Const alert, oriented [...] Cosigner Signature (if applicable): CC: ~ Signed [facility] Work Phone: 1(136) 374-778707-31-2025 Discharge summary Author Isael Bernabe [facility] Note Date/Time November 30, 2024 9:35 pm [facility] Medical Records Department [address] [place] [address] Emergency Department Summary 11/30/24 MR#: [id number] Acct: [id number] Name: ERIBERTO RICO Rep #:[id number] : [...] catheterization performed the following day by Dr. Suárez. His reports that while he had his heart catheterization performed, they were having difficulty stenting the area. She states that they were told that if he had future problems, that he might require bypass surgery. In discussion with EMS over the telephone, after EKG was sent, they administeredaspirin, Brilinta, and heparin. 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 Patient was discussed with Dr. Suárez. He had already received aspirin Brilinta and heparin. Patient taken directly to the catheterization lab. Also, patient discussed with Dr. Ridley. I reviewed his laboratory work that was requested by the [employer]. Does not have elevation of his white [...] 80.9 H Lymph % (Auto) 10.1 L [place] % (Auto) 7.7 Eos % (Auto) 0.4 [...] myocardial infarction Disposition Disposition: Acute Care [facility] Discharge Date/Time: 11/30/24 15:21 What to do if you have Problems For any increased pain, shortness of breath, bleeding, nausea or vomiting, chestpain, or any unexpected problems, contact your Primary Care Provider. Call [facility] ([phone]) or report to the closest Emergency Room. Call 911 if necessary. 11/30/242134 <Electronically signed by Isael Bernabe MD> Cosigner Signature (if applicable): CC: Dr. Marycarmen Rodriguez, ~ Signed [facility] Work Phone: 1(684) 337-320607-31-2025 Progress note Author Isael Bernabe [facility] Note Date/Time November 30, 2024 9:33 pm [facility] Medical Records Department [address] [place] [address] Quality Report 11/30/24 1605 MR#: [id number] Acct: [id number] Name: ERIBERTO RICO Rep #:[id number] : 1945 79 From: Isael Bernabe MD PCP: Dr. Marycarmen Rodriguez DO Status:ADM IN Y Location: ICU CVICU20 3-1 STEMI STEMI ED Door Time / Other REG STEMI EKG Time (1) STEMI (ST elevation myocardial infarction): Acute 11/30/24 15:17 Balloon/Aspiration Date-Time Date of Balloon/Aspiration:: 11/30/24 Time of Balloon/Aspiration:: 15:37 11/30/24 2133 <Electronically signed by Isael Bernabe MD> Date _ Isael Bernabe MD 11/30/24 1606 <Electronically signed by Donald Bill > Cosigner Signature (if applicable): Date Donald Bill CC: ~ Signed [facility] Work Phone: 1(692) 835-909607-31-2025 History and physical note Author Abraham [facility] Note Date/Time November 30, 2024 9:30 pm [facility] Medical Records Department [address] [place] [id number] H&P Exam - Hospitalist 11/30/24 1705 MR#: [id number] Acct: [id number] Name: ERIBERTO RICO Rep #:[id number] : 1945 79 From: Abraham inman DO PCP: Dr. Marycarmen Rodriguez, Status:ADM IN Location: ICU CVICU20 3-1 HPI - General General Date of Admission: 11/30/24 Date of Service: 11/30/24 Chief Complaint: STEMI HPI Narrative ERIBERTO RICO, is a 79 M who presented to [facility] on 11/30/2024 as a STEMI alert. Follows with [place] cardiology with complex CAD history, see office [...] STEMI. He was taken emergently to [facility] [employer] [facility] and coronary angiography revealed a subacute stent [...] room air. No other acute concerns currently. 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 KcmkT3j from 2022 was 7.7%. Repeat A1c ordered. [...] 75 minutes. Charges/Coding Visit Charges Inpatient E&M: 20168 Init Hosp L3 11/30/242129 <Electronically signed by Abraham Mosteller DO> Cosigner Signature (if applicable): CC: Dr. Abraham Ridley, DO; Dr. Marycarmen Rodriguez, DO~ Signed [facility] Work Phone: 1([phone]) 590-491807-31-2025 Radiology Diagnostic study [facility]2025 Consult note Author Jose Suárez [facility] Note Date/Time November 30, 2024 4:51 pm [facility] Medical Records Department [address] [place] [address] Consultation - Cardiology 11/30/24 1642 MR#: [id number] Acct: [id number] Name: ERIBERTO RICO Rep #:[id number] : 1945 79 From: Jose Suárez MD PCP: Dr. Marycarmen Rodriguez DO Status:REG [...] infarction. Subsequently a STEMI alert was called. [facility] Medical History (Updated 11/30/24 @ 16:[address] 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 Jose Suárez MD; Dr. Marycarmen Rodriguez, DO~ Signed [facility] Work Phone: 1(250) 239-333307-29-2025 Consult note Author Cyndie Frye [facility] Note Date/Time November 28, 2024 12:2 8pm [facility] Medical Records Department [address] [place] [address] Counseling Note - Pharmacy 11/28/24 0920 MR#: [id number] Acct: [id number] Name: ERIBERTO RICO Rep #:[id number] : 1945 79 From: Cyndie Frye PCP: Dr. Marycarmen Rodriguez, Status:ADM EDMUND Y Location: [place] [address] Pharmacy [place] Med Reconciliation Pharmacy Service has performed discharge [...] signed by Cyndie Frye> Date _ Cyndie Jean Baptiste Signature (if applicable): Date CC: ~ Signed [facility] Work Phone: 1([phone]) 976-168007-28-2025 Discharge summary Author Jose Suárez [facility] Note Date/Time November 27, 2024 11:3 5am [facility] Medical Records Department [address] [place] [address] Instructions for Home/Discharge Instructions 11/27/24 1128 MR#: [id number] Acct: [id number] Name: ERIBERTO RICO Rep #:[id number] : 1945 79 From: Jose Suárez MD PCP: Dr. Marycarmen Rodriguez, DO Status:REG [...] Up Care Please Follow Up With: Jose Suárez MD When: 2 weeks Test Results: Test results from this visit will be discussed in further detail at your follow- up appointment, if applicable. Discharge Plan Admission Attending Provider: Jose Suárez Primary Care Provider: Marycarmen Rodriguez Instructions Print Language: Maltese Discharge Orders/Prescriptions Prescriptions: New furosemide 80 mg [...] can be placed): Home, Self Care 11/27/24 3774<Electronically signed by Jose Suárez MD>Jose Suárez MD CC: Dr. Marycarmen Rodriguez DO ~ Signed [facility] Work Phone: 1(840) 282-164407-27-2025 Radiology Diagnostic study [facility]07-27-2025 Radiology Diagnostic study [facility]07-27-2025 Radiology Diagnostic study [facility] 11-26-2024 Radiology Diagnostic study [facility]07-27-2025 Radiology Diagnostic study [facility]07-27-2025 Radiology Diagnostic study [facility]07-27-2025 Discharge summary Author Isael Bernabe [facility] Note Date/Time November 26, 2024 9:41 pm [facility] Medical Records Department [address] [place] [address] Emergency Department Summary 11/26/24 MR#: [id number] Acct: [id number] Name: ERIBERTO RICO Rep #:[id number] : [...] presents status post fall with chest heaviness. 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 He was given 1 [place] which he usually takes at home for pain. He was able to ambulate without difficulty. At this point in time, he is motivated for discharge. I do not feel that he requires admission at this time or observation. I feel he can be discharged to follow-upwith his cardiac catheterization tomorrow morning. Patient will continue his [place] at home and follow-up as previously directed. [...] 71.8 H Lymph % (Auto) 16.7 L [place] % (Auto) 9.5 Eos % (Auto) 1.3 [...] IMPRESSION: No acute intracranial process. Reading Location: [facility] Cervical Spine CT 11/26/24 18:03 IMPRESSION: No acute compression deformity, fracture, or subluxation. Moderate multilevel degenerative changes of the cervical spine. Cervical ACDF with interbody spacers spanning C4-C6 without hardware complications. Reading Location: [facility] Chest X-Ray 11/26/24 18:03 IMPRESSION: Negative for edema Reading Location: [facility] Knee X-Ray 11/26/24 18:03 IMPRESSION: Degenerative changes without fracture Reading Location: [facility] Hand X-Ray 11/26/24 18:07 IMPRESSION: Degenerative changes. No visible fracture. Reading Location: [facility] Knee X-Ray 11/26/24 18:07 IMPRESSION: Joint effusion Reading Location: [facility] Management Discussion w/another healthcare provider: Medical Authorization Specialist (Dr. Araujo) Discharge Plan Triage Chief Complaint: [...] Primary Care Provider: Marycarmen Rodriguez Referrals: Marycarmen Rodriguez, DO [Primary Care Provider] - 3-5 Days if not improving Activity Restrictions/Additional Instructions: Have your cardiac catheterization performed tomorrow as scheduled at 8:30 in [facility]. Return with new or worsening symptoms. Print Language: Maltese Disposition Disposition: Home, Self Care What to do if you have Problems For any increased pain, shortness of breath, bleeding, nausea or vomiting, chestpain, or any unexpected problems, contact your Primary Care Provider. Call [facility] ([phone]) or report to the closest Emergency Room. Call 911 if necessary. 11/26/242140 <Electronically signed by Isael Bernabe MD> Cosigner Signature (if applicable): CC: Dr. Marycarmen Rodriguez, DO ~ Signed [facility] Work Phone: 1([phone]) 183-848107-27-2025 Hospital Discharge instructionsAdditional Instructions Have your cardiac catheterization performed tomorrow as scheduled at 8:30 in the morning. Return with new or worsening symptoms.[facility] Work Phone: 1(229) 131-510407-24-2025 Radiology Diagnostic study [facility]07-21-2025 Radiology Diagnostic study [facility]05-21-2025 Evaluation note* Diagnosis Onset Date Resolution Status Admit Date COPD (chronic obstructive pulmonary disease) chronic September 20 10:13am Diastolic heart failure chronic M ay 2024 10:13am Obesity chronic September 20, 2024 10:13am Obstructive sleep apnea chronic M ay 2024 10:13am Shortness of breath acute October 25, 2024 7:54am Bilateral lower extremity edema [employer] October 25, 2024 7:54am Chest pain chronic October 25 7:54am Chronic kidney disease, stage 3 [employer] October 25, 2024 7:54am Coronary artery [...] Obstructive sleep apnea chronic J shannon2024 10:00am [facility] Work Phone: 1([phone]) 851-796105-21-2025 Evaluation note* Diagnosis Onset Date Resolution Status Admit Date COPD (chronic obstructive pulmonary disease) chronic September 20 10:13am Diastolic heart failure chronic M ay 2024 10:13am Obesity chronic September 20, 2024 10:13am Obstructive sleep apnea chronic M ay 2024 10:13am Shortness of breath acute October 25, 2024 7:54am Bilateral lower extremity edema [employer] [place] October 25, 2024 7:54am Chest pain chronic October 25 7:54am Chronic kidney disease, stage 3 [employer] October 25, 2024 7:54am Coronary artery [...] 22, 2024 10:53am Bilateral lower extremity edema [employer] November 22, 2024 10:53am Chest pain chronic November 22 10:53am Chronic kidney disease, stage 3 [employer] November 22, 2024 10:53am Essential hypertension chronic Ju ly 2024 10:53am Hyperlipidemia chronic November 22, 2024 10:53am Obesity chronic November 22 10:53am Type 2 diabetes mellitus wit hout complications chronic November 22, 2024 10:53am [facility] Work Phone: 1([phone]) 445-148605-21-2025 Evaluation note* Diagnosis Onset Date Resolution Status Admit Date COPD (chronic obstructive pulmonary disease) chronic September 20 10:13am Diastolic heart failure chronic M ay 2024 10:13am Obesity chronic September 20, 2024 10:13am Obstructive sleep apnea chronic M ay 2024 10:13am Shortness of breath acute October 25, 2024 7:54am Bilateral lower extremity edema [employer] [place] October 25, 2024 7:54am Chest pain chronic October 25 7:54am Chronic kidney disease, stage 3 [employer] [place] October 25, 2024 7:54am Coronary artery [...] 22, 2024 10:53am Bilateral lower extremity edema [employer] [place] November 22, 2024 10:53am Chest pain chronic November 22 10:53am Chronic kidney disease, stage 3 [employer] November 22, 2024 10:53am Essential hypertension [...] 2024 4:59pm Chronic kidney disease, stage 3 [employer] November 30, 2024 4:59pm Coronary artery disease chronic J shannon 2024 4:59pm Dyslipidemia chronic November 30, 2 025 4:59pm Essential hypertension chronic Ju ly 2024 4:59pm [facility] Work Phone: 1(639) 521-901505-21-2025 Evaluation note* Diagnosis Onset Date Resolution Status [...] Essential hypertension chronic Ju ly 2024 4:59pm [facility] Work Phone: 1([phone]) 149-108705-21-2025 Evaluation note* Diagnosis Onset Date Resolution Status [...] 30, 2 025 4:59pm STEMI (ST elevation myocardial [...] sleep apnea chronic A ugust 2024 8:29pm [facility] Work Phone: 1(712) 491-975605-21-2025 Evaluation note* Diagnosis Onset Date Resolution Status [...] resolved October 4:58pm Chronic kidney disease inactive [facility] 2024 4:58pm Coronary artery disease inactive [facility] 2024 4:58pm Diabetes mellitus inactive November 302024 4:58pm Dyslipidemia inactive November 30, 2 025 4:58pm Essential hypertension inactive ly 2024 4:58pm Chronic kidney disease, stag e 3 deleted November 30, 2024 4:58pm Acute ST elevation myocardia l infarction (STEMI) of inferior wall acute December 03, 2024 2:01am Coronary artery vasospasm acute December 03, 2024 2:01am History of acute inferior wall [place] acute December 03, 2024 2:01am Hyponatremia acute [...] Obstructive sleep apnea chronic A ug2024 2:01am STEMI (ST elevation myocardial infarction) November 30, 2024 resolved December 2:01am Chronic kidney disease inactive Au 2024 2:01am Coronary artery disease inactive A ug2024 2:01am Diabetes mellitus inactive December 03, 2024 2:01am Dyslipidemia inactive December 03, 2024 2:01am [facility] Work Phone: 1(609) 201-833605-21-2025 Evaluation note* Diagnosis Onset Date Resolution Status [...] 2024 2:01am History of acute inferior wall [place] acute December 03, 2024 2:01am Hyponatremia acute [...] December 2:01am Chronic kidney disease inactive Au taj 2024 2:01am Coronary artery disease inactive A 2024 2:01am Diabetes mellitus inactive December 03, 2024 2:01am Dyslipidemia inactive December 03, 2024 2:01am Chest pain acute December 07 4:24pm Recent ST elevation myocardial infarction (STEMI) acute Au taj 2024 4:24pm Shortness of breath acute Augus t 2024 4:24pm [facility] Work Phone: 1(196) 848-387005-21-2025 Evaluation note* Diagnosis Onset Date Resolution Status [...] 2024 2:01am History of acute inferior wall [place] acute December 03, 2024 2:01am Hyponatremia acute [...] 4:24pm Shortness of breath acute 2024 4:24pm [facility] Work Phone: 1([phone]) 431-103105-21-2025 Evaluation note* Diagnosis Onset Date Resolution Status Admit Date COPD (chronic obstructive pulmonary disease) chronic September 20 10:13am Diastolic heart failure chronic M ay 2024 10:13am Obesity chronic September 20, 2024 10:13am Obstructive sleep apnea chronic M ay 2024 10:13am Bilateral lower extremity edema chronic October 25, 2024 7:54am Hyperlipidemia chronic October 25, 2024 7:54am Obesity chronic October 25 7:54am Type 2 diabetes mellitus without complications chronic October 25, 2024 7:54am Chest pain resolved October 25 7:54am Shortness of breath resolved October 25, 2024 7:54am Coronary artery disease inactive J une [...] November 22, 2024 10:53am Essential hypertension inactive Ju ly 2024 [...] November 302024 4:58pm Dyslipidemia inactive November 30, 025 4:58pm Essential hypertension inactive Ju 2024 4:58pm Chronic kidney disease, stag e 3 deleted November 30, 2024 4:58pm Obesity (BMI 30-39.9) acute Dec 2:01am CHF (congestive heart failure) chronic December 03, 2024 2:01am CKD (chronic kidney disease) stage 4, GFR 15-29 ml/min chronic December 03, 2024 2:01am Hyperlipidemia chronic December 2:01am Obesity chronic December 03 2:01am Obstructive sleep apnea chronic 2024 2:01am Coronary artery vasospasm resolved December 03, 2024 2:01am Hyponatremia resolved December 03, 2024 2:01am Leukocytosis resolved December 03, 2024 2:01am Nonsustained monomorphic ventricular tachycardia resolved December 032024 2:01am STEMI (ST elevation myocardial infarction) November 30, 2024 resolved December 2:01am Acute ST elevation myocardia l infarction (STEMI) of inferior wall inactive December 03, 2024 2:01am Chronic kidney disease inactive 2024 2:01am Coronary artery disease inactive 2024 2:01am Diabetes mellitus inactive December 03, 2024 2:01am Dyslipidemia inactive December 03, 2024 2:01am History of acute inferior wall [place] inactive December 03, 2024 2:01am DEAN (dyspnea on exertion) resolved December 07, 2024 4:24pm Shortness of breath resolved 2024 4:24pm Chest pain inactive December 07 4:24pm Recent ST elevation myocardial infarction (STEMI) inactive 2024 4:24pm Presence of stent in coronar y artery Aug, 2022 acute December 12 10:14am Bilateral lower extremity edema chronic December 12 10:14am Hyperlipidemia chronic December 10:14am Obesity chronic December 12 10:14am Type 2 diabetes mellitus without complications chronic December 10:14am Chest pain resolved December 12 10:14am Shortness of breath resolved 2024 10:14am Essential hypertension inactive Au taj 2024 10:14am Chronic kidney disease, stag e 3 deleted December 12 10:14am [facility] Work Phone: 1(725) 683-171405-21-2025 Evaluation note* Diagnosis Onset Date Resolution Status Admit Date COPD (chronic obstructive pulmonary disease) chronic September 20 10:13am Diastolic heart failure chronic M ay 2024 10:13am Obesity chronic September 20, 2024 10:13am Obstructive sleep apnea chronic M ay 2024 10:13am Bilateral lower extremity edema chronic October 25, 2024 7:54am Essential hypertension chronic Ju ne [...] Dyslipidemia inactive November 30, 2 025 4:58pm Chronic kidney disease, stage 3 deleted November 30, 2024 4:58pm Obesity (BMI 30-39.9) acute Dec 2:01am CHF (congestive heart failure) chronic December 03, 2024 2:01am CKD (chronic kidney disease) stage 4, GFR 15-29 ml/min chronic December 03, 2024 2:01am Hyperlipidemia chronic December 2:01am Obesity chronic December 03 2:01am Obstructive sleep apnea chronic A 2024 2:01am Coronary artery vasospasm resolved December 03, 2024 2:01am Hyponatremia resolved December 03, 2024 2:01am Leukocytosis resolved December 03, 2024 2:01am Nonsustained monomorphic ventricular tachycardia resolved December 032024 2:01am STEMI (ST elevation myocardial infarction) November 30, 2024 resolved December 2:01am Acute ST elevation myocardial infarction (STEMI) of inferior wall inactive December 03, 2024 2:01am Chronic kidney disease inactive 2024 2:01am Coronary artery disease inactive A ug2024 2:01am Diabetes mellitus inactive December 03, 2024 2:01am Dyslipidemia inactive December 03, 2024 2:01am History of acute inferior wall [place] inactive December 03, 2024 2:01am Shortness of breath chronic Augus t 2024 4:24pm DEAN (dyspnea on exertion) resolved December 07, 2024 4:24pm Chest pain inactive December 07 4:24pm Recent ST elevation myocardial infarction (STEMI) inactive December 07, 2024 4:24pm Presence of stent in coronary artery Aug, 2022 acute December 12 10:14am Bilateral lower extremity edema chronic December 12 10:14am Essential hypertension chronic Au 2024 10:14am Hyperlipidemia chronic December 10:14am Obesity chronic December 12 10:14am Shortness of breath chronic Augus 2024 10:14am Type 2 diabetes mellitus without complications chronic December 10:14am Chest pain resolved December 12, 025 10:14am Chronic kidney disease, stage 3 deleted December 12 10:14am Central sleep apnea acute Decus t 2024 2:35pm Chest pain acute December 15 2:35pm Pericardial effusion acute Decu st 2024 2:35pm Angina pectoris chronic December 152024 2:35pm CKD (chronic kidney disease) stage 4, GFR 15-29 ml/min chronic December 15, 2024 2:35pm Diastolic heart failure chronic A ugust 2024 2:35pm Essential hypertension chronic Au 2024 2:35pm History of percutaneous transluminal coronary angioplasty August 18, 2018 chronic December 15 2:35pm Obstructive sleep apnea chronic A ugust 2024 2:35pm Type 2 diabetes mellitus without complications chronic December 2:35pm [facility] Work Phone: 1(208) 292-652303-18-2025 Procedure notey [facility] Pulmonary Services/Neurology [address] [place] [address] MR#: [id number] Acct: [id number] Name: ERIBERTO RICO Rep #:[id number] : 1945 78 From: Zen East DO Referring Dr: Marni Horn NP 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 Status: REG CLI Location: PSN Date: Sex: M C PSN 6 Minute Walk Test 6 Minute Walk Test 6 Minute Walk Test: 6 Minute Walk Test PSN:6-Minute Walk Test Start: 07/18/24 06:38 Freq: Status: Active Protocol: RESP.6MINW Document 07/18/24 06:00 [facility] (Rec: 07/18/24 06:47 [facility] [id number]) 6 Minute Walk Test Date Performed 07/18/24 Time Performed 06:00 Height 5 ft 9 in Weight: 230 lb Weight in Pounds 230.[address]: Marni Horn THREAT MONITORING ANALYST Assistive device Cane used: Pre-test Oxygen [...] Date Dictated: 07/18/24 1032 Date Transcribed: 07/18/241031 Data Entry Representative: Dr. Zen East, DO Signed [facility]03-03-2025 Evaluation note* Diagnosis Onset Date Resolution Status Admit Date COPD (chronic obstructive pulmonary disease) chronic July 03 1:10pm Diastolic heart failure chronic arch 2024 1:10pm Obesity chronic July 03 1:10pm Obstructive sleep apnea chronic [facility] 2024 1:10pm COPD (chronic obstructive pulmonary disease) chronic September 20 10:13am Diastolic heart failure chronic ay 2024 10:13am Obesity chronic September 20, 2024 10:13am Obstructive sleep apnea chronic [facility] 2024 10:13am [facility] Work Phone: 1([phone]) 181-902703-03-2025 Evaluation note* Diagnosis Onset Date Resolution Status Admit Date COPD (chronic obstructive pulmonary disease) chronic July 03 1:10pm Diastolic heart failure chronic arch 2024 1:10pm Obesity chronic July 03 1:10pm Obstructive sleep apnea chronic arch 2024 1:10pm COPD (chronic obstructive pulmonary disease) chronic September 20 10:13am Diastolic heart failure chronic ay 2024 10:13am Obesity chronic September 20, 2024 10:13am Obstructive sleep apnea chronic [facility] 2024 10:13am DEAN (dyspnea on exertion) acute October 25, 2024 7:54am Shortness of breath acute October 25, 2024 7:54am Bilateral lower extremity edema [employer] October 25, 2024 7:54am Chronic kidney disease, stage 3 [employer] October 25, 2024 7:54am Coronary artery disease chronic J une 2024 7:54am Essential hypertension chronic Ju ne 2024 7:54am Hyperlipidemia chronic October 25, 2024 7:54am Obesity chronic October 25 7:54am Type 2 diabetes mellitus wit hout complications chronic October 25, 2024 7:54am Chest pain inactive October 25 7:54am [facility] Work Phone: [phone] [id number] Evaluation note* Diagnosis Onset Date Resolution Status [...] 25, 2024 7:54am Bilateral lower extremity edema [employer] October 25, 2024 7:54am Chest pain chronic October 25 7:54am Chronic kidney disease, stage 3 [employer] [place] October 25, 2024 7:54am Coronary artery disease chronic J une 2024 7:54am Essential hypertension chronic Ju ne 2024 7:54am Hyperlipidemia chronic October 25, 2024 7:54am Obesity chronic October 25 7:54am Type 2 diabetes mellitus wit hout complications chronic October 25, 2024 7:54am [facility] Work Phone: 1(506) 814-104403-03-2025 Evaluation note* Diagnosis Onset Date Resolution Status [...] 25, 2024 7:54am Bilateral lower extremity edema [employer] [place] October 25, 2024 7:54am Chest pain chronic October 25 7:54am Chronic kidney disease, stage 3 [employer] [place] October 25, 2024 7:54am Coronary artery [...] 31, 2024 10:00am Obstructive sleep apnea chronic [facility] 2024 10:00am [facility] Work Phone: 1(451) 500-169703-03-2025 Evaluation note* Diagnosis Onset Date Resolution Status Admit Date COPD (chronic obstructive pulmonary disease) chronic July 03 1:10pm Diastolic heart failure chronic [facility] 2024 1:10pm Obesity chronic July 03 1:10pm Obstructive sleep apnea chronic [facility] 2024 1:10pm COPD (chronic obstructive pulmonary disease) chronic September 20 10:13am Diastolic heart failure chronic [facility] 2024 10:13am Obesity chronic September 20, 2024 10:13am Obstructive sleep apnea chronic ay 2024 10:13am Shortness of breath acute October 25, 2024 7:54am Bilateral lower extremity edema [employer] [place] October 25, 2024 7:54am Chest pain chronic October 25 7:54am Chronic kidney disease, stage 3 [employer] [place] October 25, 2024 7:54am Coronary artery [...] sleep apnea chronic J shannon 2024 10:00am [facility] Work Phone: 1(359) 858-810012-16-2024 Evaluation note* Diagnosis Onset Date Resolution Status Admit Date DEAN (dyspnea on exertion) acute April 17, 2024 3:51pm Bilateral lower extremity edema [employer] [place] April 17, 2024 3:51pm Chronic kidney disease, stage 3 [employer] [place] April 17, 2024 3:51pm Coronary artery [...] sleep apnea chronic M arch 2024 1:10pm [facility] Work Phone: 1(816) 493-657811-18-2024 Evaluation note* Diagnosis Onset Date Resolution Status Admit Date Bilateral lower extremity edema [employer] March 20, 2024 10:31am Chronic kidney disease, stage 3 [employer] [place] March 20, 2024 10:31am Coronary artery disease chronic N ovember 2023 10:31am Essential hypertension chronic No vember 2023 10:31am Hyperlipidemia chronic March 032023 10:31am Obesity chronic March 20, 2024 10:31am Type 2 diabetes mellitus without complications chronic March 032023 10:31am DEAN (dyspnea on exertion) acute April 17, 2024 3:51pm Bilateral lower extremity edema [employer] April 17, 2024 3:51pm Chronic kidney disease, stage 3 [employer] April 17, 2024 3:51pm Coronary artery disease chronic D ecember 2023 3:51pm Essential hypertension chronic De cember 2023 3:51pm Hyperlipidemia chronic April 022023 3:51pm Obesity chronic April 17, 2024 3:51pm Type 2 diabetes mellitus without complications chronic April 022023 3:51pm COPD (chronic obstructive pulmonary disease) chronic July 03 1:10pm Diastolic heart failure chronic [facility] 2024 1:10pm Obesity chronic July 03 1:10pm Obstructive sleep apnea chronic [facility] 2024 1:10pm [facility] Work Phone: 1(763) 666-224905-02-[address] Suárez [facility] September 01, 2022 9:55am Note Date/Time September 01, 2022 8:37am [facility] Medical Records Department [address] [place] [address] Instructions for Home/Discharge Instructions 09/01/22 0835 MR#: [id number] Acct: [id number] Name: ERIBERTO RICO Rep #:[id number] : 1945 77 From: Jose Suárez MD PCP: Dr. Marycarmen Rodriguez, DO Status:ADM [...] Up Care Please Follow Up With: Jose Suárez MD When: 2-4 weeks Test Results: Test results from this visit will be discussed in further detail at your follow- up appointment, if applicable. Pending Tests Upon Discharge: Check CBC, CMP on 09/03/2022 Discharge Plan Admission Admit Date/Time: 08/31/22 11:40 Attending Provider: Jose Suárez Primary Care Provider: Marycarmen Rodriguez Discharge Orders/Prescriptions [...] Self Care 09/01/22 0955<Electronically signed by Jose Suárez MD>Jose Suárez MD CC: Dr. Marycarmen Rodriguez DO ~ Signed [facility] Work Phone: [phone]) 104-641308-26-2021 Miscellaneous Notes* Assessment & Plan Note - [...] with any necessary intervention. documented in this [id number] History of Present illness Narrative* Eladio Ingram [...] patient is not nervous/anxious. documented in this [id number] Miscellaneous Notes* Assessment & Plan Note - Fernanda Acuña, ELYSE - 10/09/2020 11:44 AM EDT Associated Problem(s): 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 without angina pectoris Multiple previous cardiac catheterizations with intervention. Most recent cardiac caths were performed in 2018, August 03 at [place], and August 18 at [facility] in [place]. 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 The notes from the cath at [facility] indicate that they were able [...] intolerance, and chest pressure. documented in this [id number] History of Present illness Narrative* Fernanda Acuña CNP - 10/09/2020 11:19 AM EDT [facility] [address] [facility] [address] [facility] [id number] Assessment & Plan: Hypertension Blood pressure mildly [...] without CPAP use. 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 without angina pectoris Multiple previous cardiac catheterizations with intervention. Most recent cardiac caths were performed in 2018, August 03 at [place], and August 18 at [facility] in [place]. 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 The notes from the cath at [facility] indicate that they were able [...] re-establish care. He has been following at [facility] and [facility] for his cardiology care over the past 4 years. 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 Eriberto has long-standing coronary artery disease and his history is primarily obtained through records from [facility]. Eriberto is uncertain of many of the dates related to multiple tests and interventions he has had in the past 3 years. Eriberto states that he has noticed an increase in exercise intolerance over the past 3-4 weeks. 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 at [employer] this weeks and became quite short of [...] artery disease Diabetes mellitus (HCC) Diastolic CHF ([facility]) Hyperlipidemia Hypertension Lower leg edema Myocardial infarction (HCC) 2009 Peripheral vascular disease (HCC) Sleep apnea Stroke ([facility]) Testicle swelling Past Surgical History: Procedure Laterality Date CARDIAC CATHETERIZATION N/A 01/04/2015 Left Heart Cath,Stent, EF 60%; Eladio Ingram MD; [facility] [employer] CARDIAC CATHETERIZATION N/A 01/28/2015 Left Heart Cath, EF 60%; Eladio Ingram MD; [facility] [employer] CARDIAC CATHETERIZATION N/A 06/18/2015 Left Heart Cath, Right Upper Extremity Angiogram, EF 60%; Eladio Ingram MD; [facility] [employer] CARDIAC CATHETERIZATION N/A 03/17/2016 Procedure: Left and Right Heart Cath Poss Stent; Surgeon: Eladio Ingram MD; Location: [facility] [employer]; Service: CARDIAC CATHETERIZATION 03/22/2014 EF 60% CARDIAC CATHETERIZATION 06/29/2013 EF 60% CARDIAC CATHETERIZATION 09/08/2012 EF 55% CARDIAC CATHETERIZATION 03/22/2014 EF 60% CARDIAC CATHETERIZATION Right 10/15/2016 Procedure: Left Heart Cath Possible PTCA/Stent; Surgeon: Merritt Arthur MD; Location: [facility] CATHLAB; Service: CHOLECYSTECTOMY CORONARY ANGIOPLASTY [...] ectopy, no acute changes. 50 minutes spent [id number] with patient Follow Up Ordered: Return for [...] patient is not nervous/anxious. documented in this [id number] NotePatient Outreach (COVAMN) ERIBERTO RICO ([id number]) 1945 M Date Time Provider Department 06/25/20 EPTRONA TELLES During your visit today, we recorded the following information about you: Allergies As of Date: 06/25/2020 (No Known Allergies) Date Reviewed: 08/19/2018 Reviewed by: Alcira Newby) ALEX Mcgraw - Fully Assessed Order(s):SARS-COVID VACCINE 1ST DOSE APPT [[id number]] Order #: [id number] FUTURE Prescriptions as of 06/25/2020 Sig: CLOPIDOGREL [...] (HCC) [N17.9] 08/15/2018 Coronary artery disease involving sitka smith*08/15/2018 Stented coronary artery [Z95.5] 08/15/2018 Letter Text Encounter Status:Closed by EPIC, PRODUSER on 06/28/20[facility] Consult note Author Jose Suárez [facility] Note Date/Time November 30, 2024 4:51 pm [facility] Medical Records Department [address] [place] [address] Consultation - Cardiology 11/30/24 1642 MR#: [id number] Acct: [id number] Name: ERIBERTO RICO Rep #:[id number] : 1945 79 From: Jose Suárez MD PCP: Dr. Marycarmen Rodriguez, DO Status:REG [...] infarction. Subsequently a STEMI alert was called. [facility] Medical History (Updated 11/30/24 @ 16:[address] 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 Jose Suárez MD; Dr. Marycarmen Rodriugez DO~ Signed [facility] Work Phone: Discharge summary Author Nickie Danielson [facility] Note Date/Time December 02, 2024 2:2 7pm [facility] Medical Records Department [address] [place] [address] Discharge Summary 12/02/24 1336 MR#: [id number] Acct: [id number] Name: ERIBERTO RICO Rep #:[id number] : 1945 79 From: Nickie Danielson DO PCP: Dr. Marycarmen Rodriguez DO Status:ADM IN Location: [facility] Providers Date of Admission: 11/30/24 Date [...] [facility] as a STEMI [...] inferior wall. He was taken emergency to [facility] [employer] [facility] and cardiac catheterization revealed subacute stent thrombosis [...] Std Deviation 47.4 H, RDW Coeff of Adiran 14.4, Plt Count 113 L, MPV 13.1 H, Immature Gran % (Auto) 0.700, Neut % (Auto) 78.9 H, Lymph % (Auto) 7.6 L, [place] % (Auto) 12.0 H, Eos % (Auto) [...] abnormality. 2. Age-related senescent changes. Reading Location: [facility] D/C Instructions Discharge Activity: Return to [...] Jeffrey at discharge?: Yes Done w/ Acute [place] measure.: Yes Documented LVEF (%): 50 Discharge [...] Rogers; Nick Bernard; Zay Alanis; Kristina Danielson; Kayli,Ernestina Instructions Additional Instructions / Restrictions: 1. It [...] 90 3RF Referrals / Follow Up: Jose Suárez MD [Med Staff - Active Staff] - See Referral Note (If you from theoffice on Wednesday please call on Wednesday morning to schedule a hospital follow-upafter stent placement) Marycarmen Rodriguez DO [Primary Care Provider] - In 1 Week Disposition Disposition (needs filled in before D/C Order can be placed): Home, Self Care Charges/Coding Visit Charges Inpatient E&M: 14826 Disch Hosp >30min 12/02/24 1427 <Electronically signed by Nickie Danielson DO> Cosigner Signature (if applicable): CC: Dr. Jose Suárez MD; Dr. Nickie Danielson DO; Dr. Marycarmen Rodriguez DO~ Signed [facility] Work Phone: Discharge summary Author Alex Sanon [facility] Note Date/Time December 08, 2024 4:1 2pm [facility] Medical Records Department [address] [place] [address] Transfer to [facility] MR#: [id number] Acct: [id number] Name: ERIBERTO RICO Rep #:[id number] : 1945 79 From: Alex Sanon MD PCP: Dr. Marycarmen Rodriguez DO Status:ADM EDMUND Certification of patient admission REQUIRED AT TIME OF ADMISSION. I CERTIFY THAT [facility] ARE REQUIRED TO BE GIVEN ON AN IN-PATIENT BASIS BECAUSE OF THE ABOVE NAMED PATIENT'S NEED FOR HALFWAY CARE ON A CONTINUING BASIS FOR THE CONDITION(S) FOR WHICH HE/SHE WAS RECEIVING IN-PATIENT HOSPITAL SERVICES PRIOR TO HIS/HER TRANSFER [facility]. 12/08/24 1227<Electronically signed by Alex Sanon MD> [...] PLV dissection who [place] [facility] [place] facility brought back with shortness of breath. [...] his ECF 2. Recent acute inferior wall [place] ? This was complicated by PLV dissection [...] ? Patient was recently [place] [facility] [place] facility plan is for patient to be [...] Uncertain Cause Additional Instructions / Restrictions: The inspector penetrant wanted to make sure you are taking [...] in before D/C Order can be placed): [facility] Facility 12/08/24 1227 <Electronically signed by Alex Sanon MD> Cosigner Signature (if applicable): CC: Dr. Shaan Santos DO; Dr. Marycarmen Rodriguez DO ~ [facility] Work Phone: Discharge summary Author [facility]armen [facility] Note Date/Time December 17, 2024 2: 06pm [facility] Medical Records Department [address] [place] [address] Transfer to [facility] MR#: [id number] Acct: [id number] Name: ERIBERTO RICO Rep #:[id number] : 1945 79 From: Marycarmen Marlow DO PCP: Dr. Marycarmen Rodriguez DO Status:ADM IN Certification of patient admission REQUIRED AT TIME OF ADMISSION. I CERTIFY THAT POST-HOSPITAL F SERVICES ARE REQUIRED TO BE GIVEN ON AN IN-PATIENT BASIS BECAUSE OF THE ABOVE NAMED PATIENT'S NEED FOR HALFWAY CARE ON A CONTINUING BASIS FOR THE CONDITION(S) FOR WHICH HE/SHE WAS RECEIVING IN-PATIENT HOSPITAL SERVICES PRIOR TO HIS/HER TRANSFER TO [facility]. 12/17/24 1406<Electronically signed by Marycarmen Marlow DO> [...] multiple medical problems-patient will return to his [place] [facility] [place] facility when medically stable #9 acute protein [...] mg PO Q6H PRN (Reason: Pain 1-02/09) ticagrelor [Brilinta] 90 mg Tablet 90 mg [...] [Primary Care Provider] - Gustabo Pérez NP, 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 [Med Staff - Adv Practice Prof] - See Referral Note (In 3 to 4 weeks) Disposition Disposition (needs filled in before D/C Order can be placed): [facility] Facility (6) Diastolic heart failure Qualifiers: Heart failure chronicity: chronic Qualified Code(s): I50.32 - Chronic diastolic (congestive) heart failure 12/17/24 1406 <Electronically signed by Marycarmen Marlow DO> Cosigner Signature (if applicable): CC: Dr. Marycarmen Rodriguez DO; Dr. Ramonita Herron MD; Dr. Sunil Faye MD ~ [facility] Work Phone: Evaluation note* Diagnosis Shortness of breath- [facility] Diagnosis DEAN (dyspnea on exertion)- Primary Other dyspnea and respiratory abnormality [facility] Diagnosis DEAN (dyspnea on exertion) Other dyspnea and respiratory abnormality Essential hypertension Unspecified essential hypertension Type 2 diabetes mellitus without complication, without long-term current use of insulin ([facility]) MATTHEW (obstructive sleep apnea) Obstructive sleep apnea (adult) (pediatric) 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 without angina pectoris [facility]* Diagnosis Shortness of breath [facility]* Diagnosis Essential hypertension- Primary Unspecified essential hypertension 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, unspecified whether sitka or transplanted heart ([facility]) Mixed hyperlipidemia [facility]* Diagnosis Chest pain, unspecified type- Primary [facility] Diagnosis 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 with angina pectoris (HCC)- Primary [facility] Diagnosis Onset Date Resolution Status Dizziness acute Atherosclerotic heart diseas e sitka coronary artery w/angina pectoris chronic CHF (congestive heart failure) chronic Essential hypertension chron ic History of coronary artery stent placement August 13, 2017 chronic Hyperlipidemia [facility] Work Phone: Evaluation note* Diagnosis Onset Date Resolution Status Dizziness acute Atherosclerotic heart diseas e sitka coronary artery w/angina pectoris chronic CHF (congestive heart failure) chronic Essential hypertension chron ic History of coronary artery stent placement August 13, 2017 chronic Hyperlipidemia chronic Dizziness acute DEAN (dyspnea on exertion) ac [place] Palpitations acute CAD (coronary artery disease) chronic CHF (congestive heart failure) chronic Essential hypertension chron ic Hyperlipidemia [facility] Work Phone: Evaluation note* Diagnosis Onset Date Resolution Status Dizziness acute Atherosclerotic heart diseas e sitka coronary artery w/angina pectoris chronic CHF (congestive heart failure) chronic Essential hypertension chron ic History of coronary artery stent placement August 13, 2017 chronic Hyperlipidemia chronic Dizziness acute DEAN (dyspnea on exertion) ac [place] Palpitations acute CAD (coronary artery disease) chronic CHF (congestive heart failure) chronic Essential hypertension chron ic Hyperlipidemia chronic DEAN (dyspnea on exertion) ac [place] CAD (coronary artery disease) chronic CHF (congestive heart failure) chronic Essential hypertension chron ic Hyperlipidemia [facility] Work Phone: Evaluation note* Diagnosis Onset Date Resolution Status Dizziness acute DEAN (dyspnea on exertion) ac [place] Palpitations acute CAD (coronary artery disease) chronic CHF (congestive heart failure) chronic Essential hypertension chron ic Hyperlipidemia chronic DEAN (dyspnea on exertion) ac [place] CAD (coronary artery disease) chronic CHF (congestive heart failure) chronic Essential hypertension chron ic Hyperlipidemia [facility] Work Phone: Evaluation note* Diagnosis Onset Date Resolution Status Abnormal PFT acute 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.9) [employer] Obstructive sleep apnea [employer] COVID-19 acute DEAN (dyspnea on exertion) [place] Atherosclerotic heart diseas e sitka coronary artery w/angina pectoris chronic CHF (congestive heart failure) chronic Essential hypertension chron ic History of coronary artery stent placement August 13, 2017 chronic Hyperlipidemia chronic Abnormal PFT acute COVID-19 acute 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.9) [employer] Obstructive sleep apnea [employer] [facility] Work Phone: Evaluation note* Diagnosis Onset Date Resolution Status COVID-19 acute DEAN (dyspnea on exertion) [place] Atherosclerotic heart diseas e sitka coronary artery w/angina pectoris chronic CHF (congestive heart failure) chronic Essential hypertension chron ic History of coronary artery stent placement August 13, 2017 chronic Hyperlipidemia chronic Abnormal PFT acute COVID-19 acute 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.9) [employer] Obstructive sleep apnea [employer] [facility] Work Phone: Evaluation note* Diagnosis Onset Date Resolution Status Angina pectoris chronic Chronic kidney disease chron ic Coronary artery disease [employer] [place] Diabetes mellitus chronic Dyslipidemia chronic Essential hypertension chron ic Obesity [facility] Work Phone: Evaluation note* Diagnosis Onset Date Resolution Status Angina pectoris chronic Chronic kidney disease chron ic Coronary artery disease [employer] [place] Diabetes mellitus chronic Dyslipidemia chronic Essential hypertension chron ic Obesity chronic Left-sided weakness acute Chest pain resolved Fatigue acute Syncope acute Coronary artery disease [employer] [place] Dyslipidemia chronic Essential hypertension chron ic [facility] Work Phone: Evaluation note* Diagnosis Onset Date Resolution Status Left-sided weakness acute Chest pain resolved Fatigue acute Syncope acute Coronary artery disease [employer] [place] Dyslipidemia chronic Essential hypertension chron ic Angina pectoris chronic Bilateral lower extremity edema chronic Chronic kidney disease, stage 3 chronic Coronary artery disease [employer] [place] Essential hypertension chron ic Hyperlipidemia chronic Type 2 diabetes mellitus without complications chronic [facility] Work Phone: Evaluation noteNo assessment information available [facility] Work Phone: History and physical note Author Shaan Santos [facility] Note Date/Time December 07, 2024 4:4 8pm [facility] Medical Records Department [address] [facility] [place] [address] H&P Exam - Hospitalist 12/07/24 1633 MR#: [id number] Acct: [id number] Name: ERIBERTO RICO Rep #:[id number] : 1945 79 From: Shaan Santos DO PCP: Dr. Marycarmen Rodriguez, DO Status:ADM EDMUND Location: [facility] TFR185- 1 HPI - General General Date of Service: [...] currently on room air and breathing comfortably. [facility] Medical History Anxiety Depression Diabetes Kidney disease [...] attack) Obstructive sleep apnea 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 Type 2 diabetes [...] History household members: spouse and none housing: [facility] Smoking Status: Former smoker quit date: 05/03/98 [...] 79.0 H, Lymph % (Auto) 7.9 L, [place] % (Auto) 11.5 H, Eos % (Auto) [...] IMPRESSION: No acute cardiopulmonary process Reading Location: [facility] Assessment & Plan Assessment/Plan (1) Shortness of [...] at bedside. Charges/Coding Visit Charges Inpatient E&M: 76160 Init Hosp L3 12/07/24 1648 <Electronically signed by Shaan Santos DO> Cosigner Signature (if applicable): CC: Dr. Shaan Santos DO; Dr. Marycarmen Rodriguez DO~ Signed [facility] Work Phone: Hospital Discharge instructionsAmbulatory Orders* Phase II, Outpatient Cardiac Rehab Location: None Selected [facility] Work Phone: Hospital Discharge instructionsAdditional Instructions The inspector penetrant wanted to make sure you are taking isosorbide, spironolactone, Lasix and Jardiance. Follow-up with the cardiology office.[facility] Work Phone: Progress note Author Dr. Suárez [facility] September 01, 2022 9:53am Note Date/Time September 01, 2022 9:51am [facility] Medical Records Department [address] [place] [address] Progress Note 09/01/22 0950 MR#: [id number] Acct: [id number] Name: ERIBERTO RICO Rep #:[id number] : 1945 77 From: Jose Suárez MD PCP: Dr. Marycarmen Rodriguez, DO Status:ADM EDMUND Location: [place] [address] Progress Note Reports complete resolution of angina. Denies any complaints today. Right groin stable. No hematoma or bruit. Right radial pulse 2+. Mildly decreased platelet count noted. Repeat CBC in 2 days. Also repeat complete metabolic panel in 2 days. Discharge home. Follow-up as outpatient. 09/01/22 0953 <Electronically signed by Jose Suárez MD> Jose Suárez MD Cosigner Signature (if applicable): CC: ~ Signed [facility] Work Phone: Reason for referral (narrative)No reason for referral information availableWMer[facility] Work Phone: Assessments Diagnosis MATTHEW (obstructive sleep apnea ) - Primary Obstructive sleep apnea (adult) (pediatric) Coronary artery disease invo lving sitka coronary artery of sitka heart without angina pectoris Summary Purpose Family [...] FoundDocuments on File Type Date Recorded Patient Produce Service Team Member Expl anation Advance Directives and Living Will [...] Documents on File Type Date Recorded Patient Produce Service Team Member Expl anation Advance Directives and Livin g Will 10/04/2020 12:00 AM Documents on File Type Date Recorded Patient Produce Service Team Member Expl anation Advance Directives and Living Will [...] Documents on File Type Date Recorded Patient Produce Service Team Member Expl anation Advance Directives and Livin g Will 10/15/2020 12:46 PM Documents on File Type Date Recorded Patient Produce Service Team Member Expl anation Advance Directives and Livin g Will 10/15/2020 12:46 PM Documents on File Type Date Recorded Patient Produce Service Team Member Expl anation Advance Directives and Livin g [...] Will Yes June 10 4:44pm Power of Economics Consultant Yes June 10, 2021 4:44pm Advance Directive Response Recorded Date/ Time Name of Medical Power of Economics Consultant Jennie- November 16, 2021 1:06pm Advance Directives No August 13, 018 7:02am Living Will Yes November 16, 2021 1:06pm Power of Economics Consultant Yes November 16 1:06pm Advance Directive Response Recorded Date/ Time Advance Directives No August 13 018 6:02am Living Will Yes November 16, 2021 12:06pm Power of Economics Consultant Yes November 16 12:06pm Advance Directive Response Recorded Date/ Time Advance Directives No August 13 018 7:02am Living Will Yes November 16, 2021 1:06pm Power of Economics Consultant Yes November 16 1:06pm Advance Directive Response Recorded Date/ Time Advance Directives on File Yes August 312022 7:47am Name of Medical Power of Economics Consultant Mike Rico- son August 31, 2022 7:47am Advance Directives Yes August 31, 2022 7:47am Living Will Yes August 31, 2022 7: 47am Power of Economics Consultant Yes August 31, 2022 7:47am Advance Directive Response Recorded Date/ Time Advance Directives on File Yes August 312022 7:47am Name of Medical Power of Economics Consultant Mike Bustos son August 31, 2022 7:47am Advance Directives Yes August 31, 2022 7:47am Living Will No September 18, 2022 1 2:11am Power of Economics Consultant No September 18, 2022 12:11am Advance Directive Response Recorded Date/ Time Advance Directives on File Yes August 312022 7:47am Name of Medical Power of Economics Consultant Mike Rico- son August 31, 2022 7:47am Advance Directives on File No Augus 2022 7:51am Name of Medical Power of Economics Consultant MIKE RICO December 21, 2022 7:51am Advance Directives Yes December 21, 2022 7:51am Living Will Yes December 21 7:51am Power of Economics Consultant Yes December 21 023 7:51am Advance Directive Response Recorded Date/ Time Advance Directives on File No Augus t 2022 7:51am Name of Medical Power of Economics Consultant MIKE RICO December 21, 2022 7:51am Advance Directives Yes December 21, 2022 7:51am Living Will Yes December 21 7:51am Power of Economics Consultant Yes December 21 7:51am Advance Directive Response Recorded Date/ Time Advance Directives Yes December 21, 2022 6:51am Living Will Yes December 21 6:51am Power of Economics Consultant Yes December 21 6:51am Advance Directive Response Recorded Date/ Time Living Will No October 12, 2023 6:54pm Power of Economics Consultant No October 11 6:54pm Advance Directives Yes December 21, 2022 7:51am Advance Directive Response Recorded Date/ Time Advance Directives Yes December 21, 2022 7:51am Advance Directive Response Recorded Date/ Time Do you have a Healthcare Power of Economics Consultant? Yes November 26, 2024 5:44pm Advance Directives Yes December 21, 2022 7:51am Advance Directive Response Recorded Date/ Time Advance Directives on File Yes November 27, 2024 8:44am Living Will Yes November 27, 2024 8:44am Do you have a Healthcare Pow er of Economics Consultant? Yes November 27, 2024 8:44am Name of Medical Power of Economics Consultant Jennie Popeag er- spouse November 27, 2024 8:44am Advance Directives Yes November 27 8:44am Do you have a Healthcare Pow er of Economics Consultant? Yes November 26, 2024 5:44pm Advance Directive Response Recorded Date/ Time Advance Directives on File Yes November 27, 2024 8:44am Living Will Yes November 27, 2024 8:44am Do you have a Healthcare Pow er of Economics Consultant? Yes November 27, 2024 8:44am Name of Medical Power of Economics Consultant Jennie Popeag er- spouse November 27, 2024 8:44am Advance Directives Yes November 27 8:44am Do you have a Healthcare Pow er of Economics Consultant? Yes November 26, 2024 5:44pm Do you have a Healthcare Pow er of Economics Consultant? Yes November 30, 2024 5:22pm Advance Directive Response Recorded Date/ Time Advance Directives on File Yes November 27, 2024 8:44am Living Will Yes November 27, 2024 8:44am Do you have a Healthcare Pow er of Economics Consultant? Yes November 27, 2024 8:44am Name of Medical Power of Economics Consultant Jennie Popeag er- spouse November 27, 2024 8:44am Advance Directives Yes November 27 8:44am Do you have a Healthcare Pow er of Economics Consultant? Yes November 26, 2024 5:44pm Do you have a Healthcare Pow er of Economics Consultant? Yes November 30, 2024 5:22pm Do you have a Healthcare Pow er of Economics Consultant? Yes December 02, 2024 8:23pm Advance Directive Response Recorded Date/ Time Advance Directives on File Yes November 27, 2024 8:44am Living Will Yes November 27, 2024 8:44am Do you have a Healthcare Pow er of Economics Consultant? Yes November 27, 2024 8:44am Name of Medical Power of Economics Consultant Jennie Popeag er- spouse November 27, 2024 8:44am Advance Directives Yes November 27 8:44am Do you have a Healthcare Pow er of Economics Consultant? Yes November 26, 2024 5:44pm Do you have a Healthcare Pow er of Economics Consultant? Yes November 30, 2024 5:22pm Do you have a Healthcare Pow er of Economics Consultant? Yes December 02, 2024 9:54pm Advance Directive Response Recorded Date/ Time Advance Directives on File Yes November 27, 2024 8:44am Living Will Yes November 27, 2024 8:44am Do you have a Healthcare Pow er of Economics Consultant? Yes November 27, 2024 8:44am Name of Medical Power of Economics Consultant Jennie Popeag er- spouse November 27, 2024 8:44am Advance Directives Yes November 27 8:44am Do you have a Healthcare Pow er of Economics Consultant? Yes November 26, 2024 5:44pm Do you have a Healthcare Pow er of Economics Consultant? Yes November 30, 2024 5:22pm Do you have a Healthcare Pow er of Economics Consultant? Yes December 02, 2024 9:54pm Do you have a Healthcare Pow er of Economics Consultant? Yes December 07, 2024 11:09am Advance Directive Response Recorded Date/ Time Advance Directives on File Yes November 27, 2024 8:44am Living Will Yes November 27, 2024 8:44am Do you have a Healthcare Pow er of Economics Consultant? Yes November 27, 2024 8:44am Name of Medical Power of Economics Consultant Jennie Agarwal er- spouse November 27, 2024 8:44am Advance Directives Yes November 27 8:44am Do you have a Healthcare Pow er of Economics Consultant? Yes November 26, 2024 5:44pm Do you have a Healthcare Pow er of Economics Consultant? Yes November 30, 2024 5:22pm Do you have a Healthcare Pow er of Economics Consultant? Yes December 02, 2024 9:54pm Do you have a Healthcare Pow er of Economics Consultant? Yes December 07, 2024 5:33pm Advance Directive Response Recorded Date/ Time Advance Directives on File Yes November 27, 2024 8:44am Living Will Yes November 27, 2024 8:44am Do you have a Healthcare Pow er of Economics Consultant? Yes November 27, 2024 8:44am Name of Medical Power of Economics Consultant Jennie Agarwal er- spouse November 27, 2024 8:44am Advance Directives Yes November 27 8:44am Do you have a Healthcare Pow er of Economics Consultant? Yes December 15, 2024 3:01pm Do you have a Healthcare Pow er of Economics Consultant? Yes November 26, 2024 5:44pm Do you have a Healthcare Pow er of Economics Consultant? Yes November 30, 2024 5:22pm Do you have a Healthcare Pow er of Economics Consultant? Yes December 02, 2024 9:54pm Do you have a Healthcare Pow er of Economics Consultant? Yes December 07, 2024 5:33pm Reason for Referral Status Reason Specialty Diagnoses / Procedures Referred By Contact Referred To Contact New Request Cardiology Diagnoses Shortness of breath Procedures Echocardiogram complete Eladio Ingram MD [address] [facility] [address] [place] [address] Status Reason Specialty Diagnoses / Procedures Referred By Contact Referred To Contact Closed Cardiology Diagnoses DEAN (dyspnea on exertion) Procedures ECG 12 lead Fernanda Acuña, TITLE I DIRECTOR [address] [place] [address] Specialty Diagnoses / Procedures Referred By Contac t Referred To Contact Radiology Diagnoses 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 CHF (congestive heart failure) Essential hypertension History of coronary artery stent placement Hyperlipidemia Dizziness DEAN (dyspnea on exertion) Palpitations CAD (coronary artery disease) CHF (congestive heart failure) Essential hypertension Hyperlipidemia Chief Complaint OVERDUE FOR OV CHEST PAIN CHEST PAIN 6-8 WK F/U DYSPNEA Reason for Visit Dizziness 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 CHF (congestive heart failure) Essential hypertension History of coronary artery stent placement Hyperlipidemia Dizziness DEAN (dyspnea on exertion) Palpitations CAD (coronary artery disease) CHF (congestive heart failure) Essential hypertension Hyperlipidemia Chief Complaint OVERDUE FOR OV CHEST PAIN CHEST PAIN 6-8 WK F/U DYSPNEA CHEST PAIN 2 M FU E ORDERS Reason for Visit Dizziness 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 CHF (congestive heart [...] DEAN (dyspnea on exertion) 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 E-ORDER SYNCOPE Reason for Visit Angina pectoris Chronic kidney disease Coronary artery disease Diabetes mellitus Dyslipidemia Essential hypertension Obesity Left-sided weakness Chest pain Fatigue Syncope Coronary artery disease Dyslipidemia Essential hypertension Chief Complaint CAD Amb Documentation EKG Coronary artery disease Amb Documentation CVA, CP CVA, CP CP ADMIT CVA, CP CVA, CP CVA, CP CVA, CP request by THREAT MONITORING ANALYST at [facility] for angina L.L. E-ORDER SYNCOPE 2 M [...] CP CVA, CP CVA, CP request by THREAT MONITORING ANALYST at [facility] for angina L.L. E-ORDER SYNCOPE 2 M [...] 42 pound weight gain July 07 7:46pm AMTTHEW July 17, 2024 10: 31am R06.00 - [...] titraiton for failure of BiPAP thera py Gloria 11th, 2025 7:54pm Shortness of breath November 13, 2024 [...] 03 2:01am History of acute inferior wall [place] December 03, 2024 2:01am Hyponatremia December 03, [...] 03 2:01am History of acute inferior wall [place] December 03, 2024 2:01am Hyponatremia December 03, [...] 03 2:01am History of acute inferior wall [place] December 03, 2024 2:01am Hyponatremia December 03, [...] 2:0 1am History of acute inferior wall [place] December 03, 2024 2:01am DEAN (dyspnea on exertion) December 07 4:24pm Shortness of breath December 07, 2024 4:2 4pm Chest pain December 07, 2024 4:[address] elevation myocardial infarctio n (STEMI) December 07, 2024 4:24pm Presence of stent in coronary artery Aug ust 2024 10:14am Bilateral lower extremity edema December 012024 [...] December 03, 2024 2:01am Chronic kidney disease [place] 3rd, 2025 2:01am Coronary artery disease December 03, 2024 2:01am Diabetes mellitus December 03, 2024 2:0 1am Dyslipidemia December 03, 2024 2:0 1am History of acute inferior wall [place] December 03, 2024 2:01am Shortness of breath December 07, 2024 4:2 4pm DEAN (dyspnea on exertion) December 07 4:24pm Chest pain December 07, 2024 4:[address] elevation myocardial infarctio n (STEMI) December 07, 2024 4:24pm Presence of stent in coronary artery Dec us2024 10:14am Bilateral lower extremity edema December 012024 [...] section and content) DATE CREATED AUTHOR 09/24/2018 [facility] DATE CREATED AUTHOR AUTHOR'S ORGANIZ ATION 12/20/2020 [facility] DATE CREATED AUTHOR AUTHOR'S ORGANIZ ATION 01/11/2021 [facility] DATE CREATED AUTHOR AUTHOR'S ORGANIZ ATION 02/28/2021 [facility] DATE CREATED AUTHOR AUTHOR'S ORGANIZ ATION 04/20/2021 [facility] DATE CREATED AUTHOR AUTHOR'S ORGANIZ ATION 06/22/2021 [facility] DATE CREATED AUTHOR AUTHOR'S ORGANIZ ATION 12/21/2024 [facility] Reason for Visit (unrecogniz ed section and content) Reason Comments Chest Pain SOB Status Reason Specialty Diagnoses / Procedures Referred By Contact Referred To Contact Closed Cardiology Diagnoses DEAN (dyspnea on exertion) Procedures ECG 12 lead Fernanda Acuña, TITLE I DIRECTOR [address] [facility] [place] [address] Status Reason Specialty Diagnoses / Procedures Referre d By Contact Referred To Contact Closed Cardiology Diagnoses Shortness of breath Procedures Echocardiogram complete w contrast Echocardiogram complete Eladio Ingram MD [address] [facility] [address] [place] [address] Reason Comments Initial Visit (Intake) Specialty Diagnoses / Procedures Referred By Contac t Referred To Contact Cardiology Diagnoses 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, 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) Marycarmen Rodriguez DO [address] [place] [address] Referral ID Status Reason Start Date Expiration Date V isits Requested Visits Authorized [id number] Closed Specialty Services Required/Krupa ent's Best Interest 10/04/2020 10/04/2021 1 1 Care Teams (unrecognized sec tion and content) Trust And Estates Attorney Relationship Specialty Start Date End Date Marycarmen Rodriguez DO [address] [place], [place] [phone] PCP - General Family Medicine 12/17/16 Trust And Estates Attorney Relationship Specialty Start Date End Date Marycarmen Rodriguez DO [address] [place], [place] [phone] PCP - General Family Medicine 12/17/16 Trust And Estates Attorney Relationship Specialty Start Date End Date Jennifer Marycarmen Vito, DO [address] [facility] [place] [place] [address] PCP - General Family Medicine 12/17/16 Trust And Estates Attorney Relationship Specialty Start Date End Date Marycarmen Rodriguez, DO [address] [facility] [place] [place] [address] PCP - General Family Medicine 12/17/16 Team Status: Active Member Role Status Dates Dr. Marycarmen Rodriguez DO Family Provider Active Marycarmen Rodriguez Primary Care Provider Active Team Status: Inactive Member Role Status Dates Dr. Marycarmen Rodriguez DO Primary Care Provider, Referrin g Provider Active Luz Elena Mckeon THREAT MONITORING ANALYST, 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 Attending Provider Active Team Status: Inactive Member Role Status Dates Dr. Marycarmen Rodriguez DO Primary Care Provider Active Dr. Merritt Persaud MD Attending Provider, Referring Pr ovidjason Active Team Status: Inactive Member Role Status [...] Primary Care Provider Active Luz Elena Mckeon THREAT MONITORING ANALYST, 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 Attending Provider Active Team Status: Inactive Member Role Status Dates Dr. Marycarmen Rodriguez DO Primary Care Provider Active Luz Elena Mckeon THREAT MONITORING ANALYST, 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 Attending Provider, Referring P sharon Active [...] Rodriguez DO Referring Provider Active Dr. Jose Suárez MD Attending Provider Active Marycarmen SWAIN Primary Care Provider Active Team Status: Active Member Role Status Dates Marycarmen SWAIN Primary Care Provider Active Adina Vallejo Attending Provider Active Team Status: Inactive Member Role Status Dates Dr. Marycarmen Jennifer , DO Attending Provider Active Marycarmen Rodriguez OLS Primary Care Provider Active Team Status: Inactive Member Role Status Dates Dr. Marycarmen Rodriguez DO Primary Care Provider Active Dr. Jose Suárez MD Attending Provider, Referring Pr lynne Active Team Status: Active Member Role Status Dates Dr. Marycarmen Rodriguez DO Primary Care Provider Active Adina Vallejo Attending Provider Active Team Status: Active Member Role Status Dates Dr. Marycarmen Rodriguez DO Primary Care Provider Active Dr. Jose Suárez MD Admit Provider, At tending Provider, Referring Provider, Other Provider Active Team Status: Inactive Member Role Status Dates Dr. Marycarmen Rodriguez DO Primary Care Provider Active Dr. Jose Suárez MD Admit Provider, At tending Provider, Referring Provider Active Team Status: Active Member Role Status Dates Dr. Marycarmen Rodriguez DO Primary Care Provider Active Dr. Jose Suárez MD Attending Provider Active Dr. Alex Sanon [...] Primary Care Provider Active Luz Elena Mckeon THREAT MONITORING ANALYST, 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 Attending Provider, Referring P sharon Active Team Status: Inactive Member Role Status Dates Dr. Marycarmen Rodriguez DO Primary Care Provider, Referrin g Provider Active Dr. Jose Suárez MD Attending Provider Active Team Status: Active Member Role Status Dates Dr. Marycarmen Rodriguez DO Primary Care Provider Active Dr. Marcin Araujo MD Attending Provider Active Dr. Alka Leo MD Referring Provider Active Team Status: Active Member Role Status Dates Dr. Marycarmen Rodriguez DO Primary Care Provider Active Dr. Jose Suárez MD Attending Provider, Referring Pr ovider Active Team Status: Active Member Role Status Dates Dr. Marycarmen Rodriguez DO Primary Care Provider Active Dr. Jose Suárez MD Attending Provider Active Team Status: Active Member Role Status Dates Dr. Marycarmen Rodriguez DO Primary Care Provider Active Luz Elena Mckeon THREAT MONITORING ANALYST, 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 Attending Provider Active Team Status: Inactive [...] 2024 End: March 20, 2024 Dr. Jose Suárez MD Attending Provider Active Start: March 20, [...] 2024 End: March 27, 2024 Dr. Jose Suárez MD Attending Provider Active Start: March 27, 2024 End: March 27, 2024 Team Status: Inactive Member Role Status Dates Dr. Marycarmen Rodriguez DO Primary Care Provider Active Start: April 17, 2024 End: April 17, 2024 Dr. Marycarmen Rodriguez DO Referring Provider Active Start: April 17, 2024 End: April 17, 2024 Gustabo Pérez THREAT MONITORING ANALYST, 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 Attending Provider Active S tart: April 17, 2024 End: April 17, 2024 Team Status: Inactive Member Role Status Dates Dr. Marycarmen Rodriguez DO Primary Care Provider Active Start: April 17, 2024 End: April 17, 2024 Gustabo Pérez THREAT MONITORING ANALYST, 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 Attending Provider Active S tart: April 17, 2024 End: April 17, 2024 Gustabo Pérez THREAT MONITORING ANALYST, 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 Referring Provider Active S tart: April [...] 2024 End: July 03, 2024 Marni Horn THREAT MONITORING ANALYST, 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 Attending Provider Active Start: July 03, 2024 End: July 03, 2024 Team Status: Active Member Role Status Dates Dr. Marycarmen Rodriguez DO Primary Care Provider Active Start: July 07, 2024 Marni Horn THREAT MONITORING ANALYST, 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 Attending Provider Active Start: July 07, 2024 Marni Horn THREAT MONITORING ANALYST, 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 Referring Provider Active Start: July 07, 2024 Team Status: Inactive Member Role Status Dates Dr. Marycarmen Rodriguez DO Primary Care Provider Active Start: July 07, 2024 End: July 07, 2024 Marni Horn THREAT MONITORING ANALYST, 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 Attending Provider Active Start: July 07, 2024 End: July 07, 2024 Marni Horn THREAT MONITORING ANALYST, 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 Referring Provider Active Start: July 07, 2024 End: July 07, 2024 Team Status: Active Member Role Status Dates Dr. Marycarmen Rodriguez DO Primary Care Provider Active Start: July 17, 2024 Manri Horn THREAT MONITORING ANALYST, 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 Attending Provider Active Start: July 17, 2024 Marni Horn THREAT MONITORING ANALYST, 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 Referring Provider Active Start: July 17, 2024 Team Status: Active Member Role Status Dates Dr. Marycarmen Rodriguez DO Primary Care Provider Active Start: July 18, 2024 Marni Horn THREAT MONITORING ANALYST, 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 Attending Provider Active Start: July 18, 2024 Marni Horn THREAT MONITORING ANALYST, 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 Referring Provider Active Start: July 18, 2024 Team Status: Active Member Role Status Dates Dr. Marycarmen Rodriguez DO Primary Care Provider Active Start: July 18, 2024 Marni Horn THREAT MONITORING ANALYST, 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 Referring Provider Active Start: July 18, 2024 Marni Horn THREAT MONITORING ANALYST, 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 Other Provider Active Start: July 18, 2024 Dr. Zen East DO Attending Provider Active S tart: July 18, 2024 Team Status: Inactive Member Role Status Dates Dr. Marycarmen Rodriguez DO Primary Care Provider Active Start: July 17, 2024 End: July 17, 2024 Marni Horn THREAT MONITORING ANALYST, 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 Attending Provider Active Start: July 17, 2024 End: July 17, 2024 Marni Horn THREAT MONITORING ANALYST, 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 Referring Provider Active Start: July 17, 2024 End: July 17, 2024 Team Status: Inactive Member Role Status Dates Dr. Marycarmen Rodriguez DO Primary Care Provider Active Start: July 18, 2024 End: July 18, 2024 Marni Horn THREAT MONITORING ANALYST, 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 Attending Provider Active Start: July 18, 2024 End: July 18, 2024 Marni Horn THREAT MONITORING ANALYST, 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 Referring Provider Active Start: July 18, 2024 End: July 18, 2024 Team Status: Inactive Member Role Status Dates Dr. Marycarmen Rodriguez DO Primary Care Provider Active Start: August 03, 2024 End: August 03, 2024 Marni Horn THREAT MONITORING ANALYST, 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 Attending Provider Active Start: August 03, 2024 End: August 03, 2024 Marni Horn THREAT MONITORING ANALYST, 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 Referring Provider Active Start: August 03, [...] Active Start: September 22, 2024 Marni Horn THREAT MONITORING ANALYST, 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 Attending Provider Active Start: September 22, 2024 Team Status: Inactive Member Role Status Dates Dr. Marycarmen Rodriguez DO Primary Care Provider Active Start: September 22, 2024 End: September 22, 2024 Marni Horn THREAT MONITORING ANALYST, 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 Attending Provider Active Start: September 22, [...] S tart: July 17, 2024 Marni Horn THREAT MONITORING ANALYST, 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 Referring Provider Active Start: July 17, 2024 Team Status: Inactive Member Role Status Dates Dr. Marycarmen Rodriguez DO Primary Care Provider Active Start: October 18, 2024 End: October 18, 2024 Dr. Brooks Carpenter MD Attending Provider Active Start: October 18, 2024 End: October 18, 2024 Dr. Brooks Carpenter MD Referring Provider Active Start: October 18, 2024 End: October 18, 2024 Gustabo Pérez THREAT MONITORING ANALYST, 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 Other Provider Active Start : October 18, 2024 End: October 18, 2024 Team Status: Active Member Role Status Dates Dr. Marycarmen Rodriguez DO Primary Care Provider Active Start: October 18, 2024 Marni Horn THREAT MONITORING ANALYST, 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 Attending Provider Active Start: October 18, 2024 Team Status: Inactive Member Role Status Dates Dr. Marycarmen Rodriguez DO Primary Care Provider Active Start: October 25, 2024 End: October 25, 2024 Dr. Marycarmen Rodriguez DO Referring Provider Active Start: October 25, 2024 End: October 25, 2024 Gustabo Pérez THREAT MONITORING ANALYST, 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 Attending Provider Active S tart: October 25, 2024 End: October 25, 2024 Team Status: Inactive Member Role Status Dates Dr. Marycarmen Rodriguez DO Primary Care Provider Active Start: October 18, 2024 End: October 18, 2024 Marni Horn THREAT MONITORING ANALYST, 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 Attending Provider Active Start: October 18, [...] 2024 End: July 03, 2024 Marni Horn THREAT MONITORING ANALYST, 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 Attending Provider Active Start: July 03, 2024 End: July 03, 2024 Team Status: Inactive Member Role/Relationship Status Dates Dr. Marycarmen Rodriguez DO Primary Care Provider Active Start: July 07, 2024 End: July 07, 2024 Marni Horn THREAT MONITORING ANALYST, 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 Attending Provider Active Start: July 07, 2024 End: July 07, 2024 Marni Horn THREAT MONITORING ANALYST, 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 Referring Provider Active Start: July 07, 2024 End: July 07, 2024 Team Status: Inactive Member Role/Relationship Status Dates Dr. Marycarmen Rodriguez DO Primary Care Provider Active Start: July 17, 2024 End: July 17, 2024 Marni Horn THREAT MONITORING ANALYST, 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 Attending Provider Active Start: July 17, 2024 End: July 17, 2024 Marni Horn THREAT MONITORING ANALYST, 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 Referring Provider Active Start: July 17, 2024 End: July 17, 2024 Team Status: Active Member Role/Relationship Status Dates Dr. Marycarmen Rodriguez DO Primary Care Provider Active Start: July 17, 2024 Dr. Zen East DO Attending Provider Active S tart: July 17, 2024 Marni Horn THREAT MONITORING ANALYST, 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 Referring Provider Active Start: July 17, 2024 Team Status: Inactive Member Role/Relationship Status Dates Dr. Marycarmen Rodriguez DO Primary Care Provider Active Start: July 18, 2024 End: July 18, 2024 Marni Horn THREAT MONITORING ANALYST, 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 Attending Provider Active Start: July 18, 2024 End: July 18, 2024 Marni Horn THREAT MONITORING ANALYST, 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 Referring Provider Active Start: July 18, 2024 End: July 18, 2024 Team Status: Active Member Role/Relationship Status Dates Dr. Marycarmen Rodriguez DO Primary Care Provider Active Start: July 18, 2024 Marni Horn THREAT MONITORING ANALYST, 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 Referring Provider Active Start: July 18, 2024 Marni Horn THREAT MONITORING ANALYST, 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 Other Provider Active Start: July 18, 2024 Dr. Zen East DO Attending Provider Active S tart: July 18, 2024 Team Status: Inactive Member Role/Relationship Status Dates Dr. Marycarmen Rodriguez DO Primary Care Provider Active Start: August 03, 2024 End: August 03, 2024 Marni Horn THREAT MONITORING ANALYST, 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 Attending Provider Active Start: August 03, 2024 End: August 03, 2024 Marni Horn THREAT MONITORING ANALYST, 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 Referring Provider Active Start: August 03, [...] September 20, 2024 End: September 20, 2024 Maern Olivas NP-C Attending Provider Active Start: September 20, 2024 End: September 20, 2024 Maren Olivas NP-C Referring Provider Active Start: September 20, 2024 End: September 20, 2024 Team Status: Inactive Member Role/Relationship Status Dates Dr. Marycarmen Rodriguez DO Primary Care Provider Active Start: September 22, 2024 End: September 22, 2024 Marni Horn NP, 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 Attending Provider Active Start: September 22, [...] 18, 2024 End: October 18, 2024 Gustabo Péerz THREAT MONITORING ANALYST, 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 Other Provider Active Start : October 18, 2024 End: October 18, 2024 Team Status: Inactive Member Role/Relationship Status Dates Dr. Marycarmen Rodriguez DO Primary Care Provider Active Start: October 18, 2024 End: October 18, 2024 Marni Horn THREAT MONITORING ANALYST, 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 Attending Provider Active Start: October 18, 2024 End: October 18, 2024 Team Status: Inactive Member Role/Relationship Status Dates Dr. Marycarmen Rodriguez DO Primary Care Provider Active Start: October 25, 2024 End: October 25, 2024 Dr. Marycarmen Rodriguez DO Referring Provider Active Start: October 25, 2024 End: October 25, 2024 Gustabo Pérez THREAT MONITORING ANALYST, 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 Attending Provider Active S tart: October 25, 2024 End: October 25, 2024 Team Status: Active Member Role/Relationship Status Dates Dr. Marycarmen Rodriguez DO Primary Care Provider Active Start: October 26, 2024 Marni Horn THREAT MONITORING ANALYST, 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 Attending Provider Active Start: October 26, 2024 Marni Horn THREAT MONITORING ANALYST, 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 Referring Provider Active Start: October 26, [...] 2024 End: October 26, 2024 Marni Horn THREAT MONITORING ANALYST, 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 Attending Provider Active Start: October 26, 2024 End: October 26, 2024 Marni Horn THREAT MONITORING ANALYST, 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 Referring Provider Active Start: October 26, 2024 End: October 26, 2024 Team Status: Inactive Member Role/Relationship Status Dates Dr. Marycarmen Rodriguez DO Primary Care Provider Active Start: August 03, 2024 End: August 03, 2024 Marni Horn THREAT MONITORING ANALYST, 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 Attending Provider Active Start: August 03, 2024 End: August 03, 2024 Marni Horn THREAT MONITORING ANALYST, 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 Referring Provider Active Start: August 03, 2024 End: August 03, 2024 Team Status: Inactive Member Role/Relationship Status Dates Dr. Marycarmen Rodriguez DO Primary Care Provider Active Start: September 20, 2024 End: September 20, 2024 Dr. Marycarmen Rodriguez DO Referring Provider Active Start: September 20, 2024 End: September 20, 2024 Maren Olivas 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 Attending Provider Active Start: September 20, 2024 End: September 20, 2024 Team Status: Inactive Member Role/Relationship Status Dates Dr. Marycarmen Rodriguez DO Primary Care Provider Active Start: September 20, 2024 End: September 20, 2024 Maren Olivas 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 Attending Provider Active Start: September 20, 2024 End: September 20, 2024 Maren Olivas 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 Referring Provider Active Start: September 20, 2024 End: September 20, 2024 Team Status: Inactive Member Role/Relationship Status Dates Dr. Marycarmen Rodriguez DO Primary Care Provider Active Start: September 22, 2024 End: September 22, 2024 Marni Horn NP, 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 Attending Provider Active Start: September 22, [...] 2024 End: October 18, 2024 Gustabo Pérez THREAT MONITORING ANALYST, 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 Other Provider Active Start : October 18, 2024 End: October 18, 2024 Team Status: Inactive Member Role/Relationship Status Dates Dr. Marycarmen Rodriguez DO Primary Care Provider Active Start: October 18, 2024 End: October 18, 2024 Marni Horn THREAT MONITORING ANALYST, 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 Attending Provider Active Start: October 18, 2024 End: October 18, 2024 Team Status: Inactive Member Role/Relationship Status Dates Dr. Marycarmen Rodriguez DO Primary Care Provider Active Start: October 25, 2024 End: October 25, 2024 Dr. Marycarmen Rodriguez DO Referring Provider Active Start: October 25, 2024 End: October 25, 2024 Gustabo Pérez NP, 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 Attending Provider Active S tart: October 25, 2024 End: October 25, 2024 Team Status: Inactive Member Role/Relationship Status Dates Dr. Marycarmen Rodriguez DO Primary Care Provider Active Start: October 26, 2024 End: October 26, 2024 Marni Horn THREAT MONITORING ANALYST, 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 Attending Provider Active Start: October 26, 2024 End: October 26, 2024 Marni Horn NP, 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 Referring Provider Active Start: October 26, [...] Active Start: November 10, 2024 Gustabo Pérez THREAT MONITORING ANALYST, 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 Attending Provider Active S tart: November 10, 2024 Gustabo Pérez THREAT MONITORING ANALYST, 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 Referring Provider Active S tart: November 10, 2024 Team Status: Active Member Role/Relationship Status Dates Dr. Marycarmen Rodriguez DO Primary Care Provider Active Start: November 10, 2024 Dr. Lance Rodriguez MD Attending Provider Active S tart: November 10, 2024 Gustabo Pérez THREAT MONITORING ANALYST, 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 Referring Provider Active S tart: November 10, 2024 Team Status: Active Member Role/Relationship Status Dates Dr. Marycarmen Rodriguez DO Primary Care Provider Active Start: November 10, 2024 Maren Olivas 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 Attending Provider Active Start: November 10, 2024 Maren Olivas 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 Referring Provider Active Start: November 10, 2024 Team Status: Active Member Role/Relationship Status Dates Dr. Marycarmen Rodriguez DO Primary Care Provider Active Start: November 13, 2024 Gustabo Pérez THREAT MONITORING ANALYST, 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 Referring Provider Active S tart: November 13, 2024 Gustabo Pérez THREAT MONITORING ANALYST, 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 Other Provider Active Start : November 13, 2024 Dr. Jose Suárez MD Attending Provider Active Start: November 13, 2024 Team Status: Inactive Member Role/Relationship Status Dates Dr. Marycarmen Rodriguez DO Primary Care Provider Active Start: November 10, 2024 End: November 10, 2024 Gustabo Pérez THREAT MONITORING ANALYST, 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 Attending Provider Active S tart: November 10, 2024 End: November 10, 2024 Gustabo H Roof THREAT MONITORING ANALYST, 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 Referring Provider Active S tart: November 10, 2024 End: November 10, 2024 Team Status: Inactive Member Role/Relationship Status Dates Dr. Marycarmen Rodriguez DO Primary Care Provider Active Start: November 10, 2024 End: November 10, 2024 Maren Olivas NP-C Attending Provider Active Start: November 10, 2024 End: November 10, 2024 Maren M Rufener , 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 Referring Provider Active Start: November 10, [...] 2024 End: November 22, 2024 Gustabo Pérez THREAT MONITORING ANALYST, 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 Attending Provider Active S tart: November [...] Active Start: November 22, 2024 Gustabo Pérez THREAT MONITORING ANALYST, 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 Attending Provider Active S tart: November 22, 2024 Gustabo Pérez THREAT MONITORING ANALYST, 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 Referring Provider Active S tart: November [...] Active Start: November 27, 2024 Dr. Jose Suárez MD Admit Provider Active Star t: November 27, 2024 Dr. Jose Suárez MD Attending Provider Active Start: November 27, 2024 Dr. Jose Suárez MD Referring Provider Active Start: November 27, 2024 Team Status: Active Member Role/Relationship Status Dates Dr. Marycarmen Rodriguez DO Primary Care Provider Active Start: November 27, 2024 Dr. Jose Suárez MD Attending Provider Active Start: November 27, 2024 Team Status: Inactive Member Role/Relationship Status Dates Dr. Marycarmen Rodriguez DO Primary Care Provider Active Start: November 27, 2024 End: November 28, 2024 Dr. Jose Suárez MD Admit Provider Active Star t: November 27, 2024 End: November 28, 2024 Dr. Jose Suárez MD Attending Provider Active Start: November 27, 2024 End: November 28, 2024 Dr. Jose Suárez MD Referring Provider Active Start: November 27, 2024 End: November 28, 2024 Team Status: Inactive Member Role/Relationship Status Dates Dr. Marycarmen Rodriguez DO Primary Care Provider Active Start: November 22, 2024 End: November 22, 2024 Gustabo Pérez THREAT MONITORING ANALYST, 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 Attending Provider Active S tart: November 22, 2024 End: November 22, 2024 Gustabo Pérez THREAT MONITORING ANALYST, 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 Referring Provider Active S tart: November 22, 2024 End: November 22, 2024 Team Status: Active Member Role/Relationship Status Dates Dr. Marycarmen Rodriguez DO Primary Care Provider Active Start: November 30, 2024 Isael Bernabe MD Emergency Provider Active Star t: November 30, 2024 Dr. Jose Suárez MD Attending Provider Active Start: November 30, 2024 Dr. Jose Suárez MD Referring Provider Active Start: November 30, 2024 Team Status: Active Member Role/Relationship Status Dates Dr. Marycarmen Rodriguez DO Primary Care Provider Active Start: November 30, 2024 Isael Bernabe MD Emergency Provider Active Star t: November 30, 2024 Dr. Jose Suárez MD Referring Provider Active Start: November 30, [...] End: September 22, 2024 Marni Horn NP 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 Attending Provider Active Start: September 22, [...] End: October 18, 2024 Gustabo Pérez NP, 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 Other Provider Active Start : October 18, 2024 End: October 18, 2024 Team Status: Inactive Member Role/Relationship Status Dates Dr. Marycarmen Rodriguez DO Primary Care Provider Active Start: October 18, 2024 End: October 18, 2024 Marni Horn NP, 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 Attending Provider Active Start: October 18, 2024 End: October 18, 2024 Team Status: Inactive Member Role/Relationship Status Dates Dr. Marycarmen Rodriguez DO Primary Care Provider Active Start: October 25, 2024 End: October 25, 2024 Dr. Marycarmen Rodriguez DO Referring Provider Active Start: October 25, 2024 End: October 25, 2024 Gustabo Pérez THREAT MONITORING ANALYST, 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 Attending Provider Active S tart: October 25, 2024 End: October 25, 2024 Team Status: Inactive Member Role/Relationship Status Dates Dr. Marycarmen Rodriguez DO Primary Care Provider Active Start: October 26, 2024 End: October 26, 2024 Marni Horn THREAT MONITORING ANALYST, 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 Attending Provider Active Start: October 26, 2024 End: October 26, 2024 Marni Horn THREAT MONITORING ANALYST, 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 Referring Provider Active Start: October 26, [...] 2024 End: November 10, 2024 Gustabo Pérez THREAT MONITORING ANALYST, 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 Attending Provider Active S tart: November 10, 2024 End: November 10, 2024 Gustabo Pérez THREAT MONITORING ANALYST, 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 Referring Provider Active S tart: November 10, 2024 End: November 10, 2024 Team Status: Active Member Role/Relationship Status Dates Dr. Marycarmen Rodriguez DO Primary Care Provider Active Start: November 10, 2024 Dr. Lance Rodriguez MD Attending Provider Active S tart: November 10, 2024 Gustabo Pérez THREAT MONITORING ANALYST, 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 Referring Provider Active S tart: November [...] Active Start: November 13, 2024 Gustabo Pérez THREAT MONITORING ANALYST, 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 Referring Provider Active S tart: November 13, 2024 Gustabo Pérez THREAT MONITORING ANALYST, 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 Other Provider Active Start : November 13, 2024 Dr. Jose Suárez MD Attending Provider Active Start: November 13, [...] 2024 End: November 22, 2024 Gustabo Pérez THREAT MONITORING ANALYST, 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 Attending Provider Active S tart: November 22, 2024 End: November 22, 2024 Team Status: Inactive Member Role/Relationship Status Dates Dr. Marycarmen Rodriguez DO Primary Care Provider Active Start: November 22, 2024 End: November 22, 2024 uGstabo Pérez THREAT MONITORING ANALYST, 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 Attending Provider Active S tart: November 22, 2024 End: November 22, 2024 Gustabo Pérez THREAT MONITORING ANALYST, 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 Referring Provider Active S tart: November [...] 2024 End: November 28, 2024 Dr. Jose Suárez MD Admit Provider Active Star t: November 27, 2024 End: November 28, 2024 Dr. Jose Suárez MD Attending Provider Active Start: November 27, 2024 End: November 28, 2024 Dr. Jose Suárez MD Referring Provider Active Start: November 27, 2024 End: November 28, 2024 Team Status: Active Member Role/Relationship Status Dates Dr. Marycarmen Rodriguez DO Primary Care Provider Active Start: November 27, 2024 Dr. Jose Suárez MD Attending Provider Active Start: November 27, 2024 Team Status: Active Member Role/Relationship Status Dates Dr. Marycarmen Rodriguez DO Primary Care Provider Active Start: November 30, 2024 Isael Bernabe MD Emergency Provider Active Star t: November 30, 2024 Dr. Jose Suárez MD Attending Provider Active Start: November 30, 2024 Dr. Jose Suárez MD Referring Provider Active Start: November 30, 2024 Team Status: Inactive Member Role/Relationship Status Dates Dr. Marycarmen Rodriguez DO Primary Care Provider Active Start: November 30, 2024 End: December 02, 2024 Isael Bernabe MD Emergency Provider Active Star t: November 30, 2024 End: December 02, 2024 Dr. Jose Suárez MD Referring Provider Active Start: November 30, [...] Star t: November 30, 2024 Dr. Jose Suárez MD Referring Provider Active Start: November 30, 2024 Dr. Abraham Ridley , Admit Provider Active Start: November 30, 2024 Dr. Abraham Ridley , Attending Provider Active Start: November 30, 2024 Dr. Abraham Ridley , DO Other Provider Active Start: November 30, 2024 Team Status: Active Member Role/Relationship Status Dates Dr. Marycarmen Rodriguez DO Primary Care Provider Active Start: December 01, 2024 Isael Bernabe MD Emergency Provider Active Star t: December 01, 2024 Dr. Jose Suárez MD Referring Provider Active Start: December 01, [...] Star t: December 01, 2024 Dr. Jose Suárez MD Referring Provider Active Start: December 01, [...] Star t: December 02, 2024 Dr. Jose Suárez MD Referring Provider Active Start: December 02, 2024 Dr. Abraham Ridley DO Admit Provider Active Start: December 02, 2024 Dr. Abraham Ridley DO Other Provider Active Start: December 02, 2024 Dr. Nickie Danielson , DO Attending Provider Active S tart: December [...] 2024 End: December 02, 2024 Dr. Jose Suárez MD Referring Provider Active Start: November 30, [...] End: December 08, 2024 Dr. Tor Irizarry DO [...] Start: December 08, 2024 Dr. Shaan Santos DO Admit Provider Active Star t: December 08, 2024 Dr. Shaan Santos DO [...] 2024 End: December 12, 2024 Gustabo Pérez THREAT MONITORING ANALYST, 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 Attending Provider Active S tart: December 12, [...] t: December 02, 2024 Dr. Abraham Ridley , Admit Provider Active Start: December 02, 2024 Dr. Abraham Ridley DO Other Provider Active Start: December 02, 2024 Dr. Nickie Danielson DO Attending Provider Active S tart: December 02, 2024 Dr. Nickie Danielson , Other Provider Active Start : December 02, [...] Active Start: December 12, 2024 Gustabo Pérez THREAT MONITORING ANALYST, 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 Attending Provider Active S tart: December 12, 2024 Gustabo Pérez THREAT MONITORING ANALYST, 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 Referring Provider Active S tart: December 12, [...] 2024 End: December 12, 2024 Gustabo Pérez THREAT MONITORING ANALYST, 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 Attending Provider Active S tart: December 12, 2024 End: December 12, 2024 Gustabo Pérez THREAT MONITORING ANALYST, 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 Referring Provider Active S tart: December 12, [...] BE BASED ON THE PRIMARY CLINICAL RECORDS. [facility]. provides no warranty or guarantee of the accuracy or completeness of information in this document.
--- OUTSIDE RECORDS SUMMARY | 2024-12-24 02:14 | XMS RPT_ITS | CCD ---
Author Organization [facility] Care Team Providers Care Netting Weaver Name Role Phone Unavailable Unavailable Unavailable Marycarmen Rodriguez DO Primary Care Provider [phone] Marycarmen Rodriguez DO Primary Care Provider [phone] MIN HOWARD Referring Unavailable MARYCARMEN RODRIGUEZ Primary [...] Unavailable Dr. Marycarmen Rodriguez Primary Care Provider [phone] Dr. Marycarmen Rodriguez Referring Provider Mike PEREA, YRN Laguna Attending Provider Dr. Darnell Corral Attending Provider Mike BLAST FURNACE OPERATOR, BLAST FURNACE OPERATOR-C Luz Elena Referring Provider Mike BLAST FURNACE OPERATOR, BLAST FURNACE OPERATOR-C Luz Elena Other Provider [phone] Dr. John Palacios Attending Provider Mike BLAST FURNACE OPERATOR, BLAST FURNACE OPERATOR-C Luz Elena Referring Provider Dr. Marycarmen Rodriguez Primary Care Provider [phone] Dr. Marycarmen Rodriguez Referring Provider Mike BLAST FURNACE OPERATOR, BLAST FURNACE OPERATOR-C Luz Elena Attending Provider Dr. Zen East [...] Provider Dr. Aimee Cummins Attending Provider Mike BLAST FURNACE OPERATOR, BLAST FURNACE OPERATOR-C Luz Elena Attending Provider Adina Vallejo [...] Dr. Marycarmen Rodriguez DO Attending Provider Beto BLAST FURNACE OPERATOR-C, Gustabo Gao Attending Provider Roof BLAST FURNACE OPERATOR-C, Gustabo H Referring Provider Justina BLAST FURNACE OPERATOR-CMarni Attending Provider Justina BLAST FURNACE OPERATOR-C, Marni Referring Provider Dr. Marycarmen Rodriguez DO Primary Care Provider Dr. Marycarmen Rodriguez DO Referring Provider Dr. Jose Hay MD Attending Provider Justina BLAST FURNACE OPERATOR-C, Marni Other Provider Dr. Zen East DO Attending Provider Dr. Marycarmen Rodriguez DO Primary Care Provider Jennifer CATHERINE Dr. Marycarmen Referring Provider Jennifer DO, Dr. Dow Attending Provider Jennifer DO, Dr. Dow Primary Care Provider Jennifer DO, Dr. Dow Referring Provider Brendon BLAST FURNACE OPERATOR-C, Maren Clarke Attending Provider Brendon BLAST FURNACE OPERATOR-C, Maren Clarke Referring Provider [facility] , Dr. Zaldivar Attending Provider Paluine PALOMO, Dr. Guy Attending Provider Pauline PALOMO, Dr. Guy Referring Provider Roof BLAST FURNACE OPERATOR-C, Gustabo Gao Other Provider Roof BLAST FURNACE OPERATOR-C, Gustabo Gao Attending Provider Jennifer DO, Dr. Dow Primary Care Provider Jennifer DO, Dr. Dow Attending Provider Jennifer DO, Dr. Dow Primary Care Provider Horn BLAST FURNACE OPERATOR-C, Marni Attending Provider Horn BLAST FURNACE OPERATOR-C, Marni Referring Provider Jennifer DO, Dr. Dow Referring Provider Roof BLAST FURNACE OPERATOR-C, Gustabo Gao Referring Provider Jennifer PALOMO, Dr. Lucas Attending Provider Unavail bear Hay MD, Dr. Garcia Attending Provider JenniferDr. Marycarmen vera DO Primary Care Provider Horn BLAST FURNACE OPERATOR-C, Marni Attending Provider Justina BLAST FURNACE OPERATOR-C, Marni Referring Provider JenniferDr. Marycarmen vera DO Referring Provider Brendon BLAST FURNACE OPERATOR-CMaren Attending Provider Brendon BLAST FURNACE OPERATOR-C, Maren Clarke Referring Provider JenniferDr. Marycarmen shetty DO Attending Provider Pauline PALOMO, Dr. Guy Attending Provider Pauline PALOMO, Dr. Guy Referring Provider Roof BLAST FURNACE OPERATOR-C, Gustabo H Other Provider Roof BLAST FURNACE OPERATOR-C, Gustabo H Attending Provider Roof BLAST FURNACE OPERATOR-C, Gustabo H Referring Provider Jennifer PALOMO, Dr. Lucas Attending Provider Unavailab bear Hay MD, Dr. Garcia Attending Provider Isael Bernabe MD Emergency Provider Jose Armando PALOMO, Dr. Garcia Admit Provider Jose Armando PALOMO, Dr. Garcia Referring Provider Keyana CATHERINE, Dr. Rosario Admit Provider Dr. Abraham Ridley DO Attending Provider Dr. Marycarmen Rodriguez DO Primary Care Provider Horn BLAST FURNACE OPERATOR-C, Marni Attending Provider Horn BLAST FURNACE OPERATOR-C, Marni Referring Provider Isael Bernabe MD Attending Provider Dr. Abraham Ridley DO Other Provider Dr. Nickie Danielson DO Attending Provider [phone] Elvis Olvera MD Other Provider Unavailable Marky PALOMO, Dr. Rutherford Other Provider Faye Kingsley MD Other Provider Unavailable Dr. Petrona Vargas DO Other Provider [phone] Cain PALOMO, Dr. Harvey Other Provider Sissy PALOMO, Dr. Shetty Other Provider Carrington PALOMO, Dr. Alcala Other Provider Nasim PALOMO, Dr. Whitaker Other Provider Dr. Seymour John MD Other Provider Willie PALOMO, Dr. Roldan Other Provider Xena PALOMO, Chrissy Other Provider Floerntino PALOMO, Dr. Bynum Other Provider Bari PALOMO, [...] Provider Tatiana PALOMO, Dr. Arevalo Referring Provider Dr. Abraham Ridley DO Admit Provider Dr. Abraham Ridley DO Other Provider [phone] Wade PALOMO, Elvis Other Provider Unavailable Dr. Sangeeta Negro MD Other Provider Faye Kingsley MD Other Provider Unavailable Dr. Petrona Vargas DO Other Provider Cain PALOMO, Dr. Harvey Other Provider Sissy PALOMO, Dr. Shetty Other Provider Carrington PALOMO, Dr. Alcala Other Provider Nasim PALOMO, Dr. Whitaker Other Provider Alvaro PALOMO, Dr. Allen Other Provider Willie PALOMO, Dr. Roldan Other Provider Xena PALOMO, Chrissy Other Provider Florentino PALOMO, Dr. Bynum Other Provider Bari PALOMO, Dr. Burleson Other Provider Cher PALOMO, Dr. Vera Other Provider Arnav PALOMO, Dr. Fermin Hernandez Other Provider Ken PALOMO, Dr. Alvarado Other Provider Joana PALOMO, Dr. Romero Other Provider Annabelle PALOMO, Dr. Collazo Other Provider Jagjit PALOMO, Dr. Acevedo Other Provider Unavailable Kayli PALOMO, Ernestina Other Provider Unavailable Jagjit CATHERINE, Dr. Fu Attending Provider Hilton PALOMO, Dr. Iqbal Emergency Provider Tatiana PALOMO, Dr. Arevalo Referring Provider Tatiana PALOMO, Dr. Arevalo Other Provider Gopal PALOMO, Dr. Shipman Other Provider Talita PALOMO, Dr. Johnson Attending Provider Unavaila heraclio Herron MD, Dr. Shipman Attending Provider Talita PALOMO, Dr. Johnson Other Provider Unavailable Gayle PALOMO, Dr. Burch Referring Provider [phone] Boyd Rock MD Attending Provider Unavaila heraclio Irizarry DO, Dr. Lentz Emergency Provider Tom CATHERINE, Dr. Garduno Admit Provider Tom CATHERINE, Dr. Garduno Attending Provider Tom CATHERINE, Dr. Garduno Other Provider Tom CATHERINE, Dr. Garduno Other Provider Tom CATHERINE, Dr. Garduno Attending Provider Boyd Rock MD Referring Provider UnavailDr. Payal Laureano DO Emergency Provider Jason Faye MD, Dr. Barber Attending Provider Unavailab bear Herron MD, Dr. Shipman Admit Provider Neyda PALOMO, Dr. Barber Other Provider Unavailable Ele CATHERINE, Dr. Dow Attending Provider Ele CATHERINE, Dr. Dow Other Provider Jose Armando, Jose Attending Unavailable Jennifer, Marycarmen Primary Care Unavailable Horn BLAST FURNACE OPERATOR, Marni Referring Unavailable Horn BLAST FURNACE OPERATOR, Marni Attending Unavailable Jennifer, Marycarmen Primary Care Unavailable Boyd Tom Attending Unavailabl e Jennifer, Marycarmen Primary Care Unavailable Jose Armando, Jose Attending Unavailable Jennifer, Marycarmen Primary Care Unavailable Jennifer, Marycarmen Referring Unavailable Jennifer, Marycarmen Primary Care Unavailable Isael Bernabe Attending Unavailable Jennifer, Marycarmen Attending Unavailable Jennifer, Marycarmen Primary Care Unavailable Jennifer, Marycarmen Primary Care Unavailable Gayle, Hornick Referring Unavailable Gayle, Hornick Attending Unavailable Justina BLAST FURNACE OPERATOR, Marni Referring Unavailable Zen East Attending Unavailable Jennifer, Marycarmen Primary Care Unavailable Beto BLAST FURNACE OPERATOR, Gustabo Gao Referring Unavailable Jennifer, Marycarmen Primary Care Unavailable Lance Rodriguez Attending Unavailable Abraham Ridley Attending Unavailable Abraham Ridley Consulting Unavailable Abraham Ridley Admitting Unavailable Mostafa, Mickey Referring Unavailable Jennifer, Marycarmen Primary Care Unavailable Mostafa, Mickey Consulting Unavailable Ramonita Herron Consulting Unavailable Jennifer, Marycarmen Primary Care Unavailable Roof BLAST FURNACE OPERATOR, Gustabo H Attending Unavailable Jennifer, Marycarmen Referring Unavailable Jose Armando, Jose Referring Unavailable Nickie Danielson Attending Unavailable Abraham Ridley Admitting Unavailable Abraham Ridley Consulting Unavailable Jennifer, Marycarmen Primary Care Unavailable Nickie Danielson Consulting Unavailable Abraham Ridley Attending Unavailable Gayle, Marcin Attending Unavailable Jose Armando, Jose Attending Unavailable Jose Armando, Jose Referring Unavailable Jennifer, Marycarmen Primary Care Unavailable Elvis Olvera Consulting Unavailable Adeli, Amir Consulting Unavailable Hinduja, Faye Consulting Unavailable Sam, Petrona Consulting Unavailable Cain, Candice Consulting Unavailable Sissy, Diogenes Consulting Unavailable Carrington, Cari Consulting Unavailable Sherman Rouse Consulting Unavailable Seymour John Consulting Unavailable Jamar Taipa Consulting Unavailable Chrissy Mccallum Consulting Unavailable Fletcher Good Consulting Unavailable Sarah Beth Candelaria Consulting Unavailable Jody Kwon Consulting Unavailable Fermin Josét Consulting UnavailMin Woodruff Consulting Unavailable Nick Bernard Consulting Unavailable Zay Alanis Consulting Unavailable Kristina Danielson Consulting Unavailable Ernestina Milna Consulting Unavailable [facility] Marycarmen Primary Care Unavailable Horn BLAST FURNACE OPERATOR, Marni Attending Unavailable JenniferMarycarmen Referring Unavailable Roof BLAST FURNACE OPERATOR, Gustabo H Attending Unavailable Roof BLAST FURNACE OPERATOR, Gustabo H Referring Unavailable [facility] Primary Care Unavailable [facility] Primary Care Unavailable Horn BLAST FURNACE OPERATOR, Marni Attending Unavailable Horn BLAST FURNACE OPERATOR, Marni Referring Unavailable Jennifer, Marycarmen Primary Care Unavailable Horn BLAST FURNACE OPERATOR, Marni Referring Unavailable Horn BLAST FURNACE OPERATOR, Marni Attending Unavailable [facility] Marycarmen Primary Care Unavailable Roof BLAST FURNACE OPERATOR, Gustabo H Referring Unavailable Roof BLAST FURNACE OPERATOR, Gustabo H Attending Unavailable [facility] Primary Care Unavailable JenniferMarycarmen Attending Unavailable Enid Fayer Consulting Unavailable [facility] Primary Care Unavailable Marycarmen Marlow Attending Unavailable Ramonita Herron Admitting Unavailable Ramonita Herron Consulting Unavailable Shaan Santos Consulting Unavailable [facility] Primary Care Unavailable Shaan Santos Admitting Unavailable Alex Sanon Attending Unavailable Maren Olivas Referring Unavailable [facility] Primary Care Unavailable Maren Olivas Attending Unavailable [facility] Primary Care Unavailable JenniferMarycarmen Attending Unavailable [facility] Primary Care Unavailable Brooks Carpenter Attending Unavailable Brooks Carpenter Referring Unavailable Olemie OLS, Efewongbe Referring Unavailabl e Shweta SWAIN, Efewongbe Attending [facility] Primary Care Unavailable Olemie OLS, Efewongbe Attending Unavailabl e Horn BLAST FURNACE OPERATOR, Marni Attending Unavailable [facility] Primary Care Unavailable Olemie OLS, Efewongbe Attending Unavailabl e Jennifer, Marycarmen Primary Care Unavailable Horn BLAST FURNACE OPERATOR, Marni Attending Unavailable Horn BLAST FURNACE OPERATOR, Marni Referring [facility] Unavailable [facility] Primary Care Unavailable Gayle, Hornick Referring Unavailable GayleRussellMarcin Attending Unavailable GarethJody gomez Referring Unavailable [facility] Marycarmen Primary Care Unavailable GarethJody gomez Attending Unavailable Horn BLAST FURNACE OPERATOR, Marni Attending Unavailable [facility] Primary Care Unavailable Horn BLAST FURNACE OPERATOR, Marni Referring Unavailable Horn BLAST FURNACE OPERATOR, Marni Attending Unavailable Jennifer, Marycarmen Primary Care Unavailable Maren Olivas Referring Unavailable Maren Olivas Attending Unavailable Jennifer, Marycarmen Primary Care Unavailable Jennifer, Marycarmen Primary Care Unavailable Jennifer Marycarmen Attending Unavailable Jennifer, Marycarmen Referring Unavailable Roof BLAST FURNACE OPERATOR, Gustabo H Attending Unavailable Roof BLAST FURNACE OPERATOR, Gustabo H Referring Unavailable Jennifer, Marycarmen Primary Care Unavailable Roof BLAST FURNACE OPERATOR, Gustabo H Consulting Unavailable Jennifer, Marycarmen Primary Care Unavailable Brooks Carpenter Attending Unavailable Brooks Carpenter Referring Unavailable Boyd Tom Attending Unavailchula Mandelman Marycarmen Primary Care Unavailable Roof BLAST FURNACE OPERATOR, Gustabo H Attending Unavailable Jennifer, Marycarmen Primary Care Unavailable Jennifer, Marycarmen Referring Unavailable Roof BLAST FURNACE OPERATOR, Gustabo H Attending Unavailable Jennifer, Marycarmen Primary Care Unavailable Jennifer, Marycarmen Referring Unavailable Jennifer, Mraycarmen Primary Care Unavailable Jose Hay Attending Unavailable Jennifer, Marycarmen Referring Unavailable Roof BLAST FURNACE OPERATOR, Gustabo H Attending Unavailable Jennifer, Marycarmen Primary Care Unavailable Jennifer, Marycarmen Referring Unavailable Jennifer, Marycarmen Primary Care Unavailable Opal Wright Attending Unavailable Jennifer, Marycarmen Referring Unavailable Abraham Ridley Consulting Unavailable Abraham Ridley Admitting Unavailable Mostandrey, Mickey Referring Unavailable Jennifer, Marycarmen Primary Care Unavailable Alex Sanon Attending Unavailable Mostafa, Mickey Consulting Unavailable Ramonita Herron Consulting Unavailable Jose Armando, Jose Referring Unavailable Nickie Danielson Attending Unavailable Abraham Ridley Admitting Unavailable Abraham Ridley Consulting Unavailable Jennifer, Marycarmen Primary Care Unavailable Elvis Olvera Consulting Unavailable Adeli, Amir Consulting Unavailable Hinduja, Faye Consulting Unavailable Sam, Petrona Consulting Unavailable Zha, Candice Consulting Unavailable Sissy, Diogenes Consulting Unavailable Carrington, Cari Consulting Unavailable Sherman Rouse Consulting Unavailable Seymour John Consulting Unavailable Jamar Tapia Consulting Unavailable Chrissy Mccallum Consulting Unavailable Fletcher Good Consulting Unavailable Sarah Beth Candelaria Consulting Unavailable Jody Kwon Consulting Unavailable Fermin José David Consulting UnavailMin Woodruff Consulting Unavailable Bernard Ramcullen Consulting Unavailable Zay Alanis Consulting Unavailable Kristina Danielson Consulting Unavailable Edmundo Milansenolberto Consulting Unavailable Jose Armando, Jose Attending Unavailable Jose Armando, Jose Referring Unavailable Jose Armando, Jose Admitting Unavailable Jennifer, Marycarmen Primary Care Unavailable Alex Sanon Attending Unavailable Alex Sanon Consulting Unavailable Shaan Santos Consulting Unavailable Shaan Santos Attending Unavailable Shaan Santos Admitting Unavailable Jennifer, Marycarmen Primary Care Unavailable Alex Sanon Attending Unavailable Alex Sanon Consulting Unavailable AzoSunil borden Attending Unavailable Jennifer, Marycarmen Primary Care Unavailable Jennifer, Marycarmen Primary Care Unavailable Ramonita Herron Attending Unavailable Ramonita Herron Consulting Unavailable Ramonita Herron Admitting Unavailable Lance Rodriguez Attending Unavailable Sunil Faye Consulting Unavailable Marycarmen Marlow Consulting Unavailable Marycarmen Marlow Attending Unavailable Justina BLAST FURNACE OPERATOR, Marni Referring Unavailable Horn BLAST FURNACE OPERATOR, Marni Consulting Unavailable Jennifer, Marycarmen Primary Care Unavailable Zen East Attending Unavailable Jose Hay Attending Unavailable Beto BLAST FURNACE OPERATOR, Gustabo Gao Referring Unavailable Beto BLAST FURNACE OPERATOR, Gustabo Gao Consulting Unavailable Jennifer, Marycarmen Primary Care Unavailable Abraham Ridley Consulting Unavailable afaSubhashMickey Referring Unavailable Jennifer, Marycarmen Primary Care Unavailable Ramonita Herron Attending Unavailable Abraham Ridley Admitting Unavailable Mostafa, Mickey Consulting Unavailable Ramonita Herron Consulting Unavailable Marcin Araujo Attending Unavailable Marcin Araujo Attending Unavailable Maren Olivas Attending Unavailable Jennifer, Marycarmen Primary Care Unavailable Jennifer, Marycarmen Referring Unavailable Maren Olivas Attending Unavailable Jennifer, Marycarmen Primary Care Unavailable Jennifer, Marycarmen Referring Unavailable Roof BLAST FURNACE OPERATOR, Gustabo Gao Attending Unavailable Roof BLAST FURNACE OPERATOR, Gustabo Gao Referring Unavailable Jennifer, Marycarmen Primary Care Unavailable Medications Current Medications Medication Drug Class(es) Dates Sig (Normalized) Sig (Original) acetaminophen 325 mg oral tablet (20 sources) Start: 01-03-2020 End: 10-12-2023 Start: 01-03-2020 take 650 mg by mouth every six hours as needed Acetaminophen Active 650 MG PO EVERY 6 HOURS NEEDED January 02, 2020 11:00pm aspirin 81 mg delayed releas e oral tablet (20 sources) Platelet Aggregation Inhibitor, Nonsteroidal Anti-inflammatory Drug Start: 01-21-2017 cetirizine hydrochloride 10 mg oral tablet (20 sources) Histamine-1 Receptor Antagonist Start: 09-16-2021 End: 08-12-2025 cholecalciferol 0.025 mg ora l tablet (20 [...] 20, 2017 11:00pm January 19, 2018 2:23pm colchicine 0.6 mg oral capsu le (2 sources) Start: 12-17-2024 CYANOCOBALAMIN, VITAMIN B-12 , (VITAMIN B12 ORAL) (9 sources) CYANOCOBALAMIN, VITAMIN B-12, (VITAMIN B12 ORAL) Take by mouth. 0 Active CYANOCOBALAMIN, VITAMIN B-12, (VITAMIN B12 ORAL) Take by mouth. Active 24 hr dilTIAZem hydrochloride 240 mg extended release oral capsule (1 source) Calcium Channel Jeffrey Start: 12-17-2016 End: 12-17-2017 take 1 capsule by mouth once daily diltiazem (CARTIA XT) 240 MG 24 hr capsule Take 1 (one) capsule (240 mg total) by mouth daily. 30 capsule 12/17/2016 12/17/2017 Active empagliflozin 10 mg oral tablet (20 sources) Sodium-Glucose Cotransporter 2 Inhibitor Start: 12-06-2024 Start: 10-12-2023 End: 03-20-2024 Start: 12-15-2022 End: 10-12-2023 ERGOCALCIFEROL, VITAMIN D2, (VITAMIN D2 ORAL) (8 [...] times a day . 0 Active furosemide 40 mg oral tablet (20 sources) Loop Diuretic Start: 12-06-2024 Start: 11-27-2024 End: 12-06-2024 Start: 09-08-2018 End: 11-27-2024 Start: 09-08-2018 End: [...] mouth daily. 90 tablet 3 05/07/2016 Active 24 hr metoprolol succinate 2 5 mg extended release oral tablet (20 sources) beta-Adrenergic Jeffrey Start: 10-25-2024 Start: 12-22-2022 End: 09-16-2023 Start: [...] Start: 08-26-2018 End: 09-21-2018 microencapsulated potassium chloride 10 meq extended release oral tablet (20 sources) Start: 12-17-2024 Start: 04-12-2018 End: 06-14-2024 Start: 04-12-2018 End: [...] a day. 540 tablet 3 03/28/2017 Active promethazine hydrochloride 1 2.5 mg oral tablet (2 sources) Phenothiazine Start: 12-17-2024 spironolactone 25 mg oral ta blet (20 sources) Aldosterone Antagonist Start: 12-06-2024 Start: 10-12-2023 End: 12-06-2024 Start: 10-28-2018 End: 10-12-2023 Start: 01-21-2017 End: [...] Start: 08-30-2017 End: 08-30-2017 (20 sources) Start: 12-17-2024 Start: 12-02-2024 Start: 04-27-2024 End: 06-14-2024 Start: 03-20-2024 Start: 09-21-2022 End: 10-12-2023 Start: 08-01-2021 End: 08-19-2022 Start: 06-04-2019 End: 06-04-2019 Start: 06-01-2019 End: 06-04-2019 Completed/Discontinued Medications Medication Drug Class(es) Dates Sig (Normalized) Sig (Original) acetaminophen 325 mg / HYDROcodone bitartrate 5 mg oral tablet (20 sources) Opioid Agonist Start: 04-17-2024 End: 12-06-2024 Start: 04-17-2024 Hydrocodone-Ac etaminophen 5-325 mg tablet Active 1 {tbl} PO TWICE A DAY as needed 0 April 17, 2024 1:00am [id number] 200 actuat albuter ol 0.09 mg/actuat metered dose inhaler (20 sources) beta2-Adrenergic Agonist Start: 09-20-2024 End: 11-30-2024 Start: 09-20-2024 Albuterol Sulf ate 90 mcg/actuation HFA aerosol inhaler Active 2 NMA INHALATION EVERY 4-6 HOURS as needed for shortness of breath or wheezing 8.5 3 September 20, 2024 12:00am amLODIPine 5 mg oral tablet (20 sources) Dihydropyridine Calcium Channel Jeffrey Start: 09-24-2023 End: 10-25-2024 Start: 08-01-2021 End: [...] mg oral tabl et (20 sources) alpha-Adrenergic Jeffrey, beta-Adrenergic Jeffrey Start: 09-16-2023 End: 10-25-2024 ciprofloxacin 500 mg [...] sources) Tetracycline-class Drug Start: 01-20-2017 End: 07-22-2017 ergocalciferol 0.05 mg oral capsule (20 sources) [...] 20, 2024 12:00am gabapentin 100 mg oral capsu le (20 sources) Anti-epileptic Agent Start: 03-20-2024 End: 10-25-2024 glimepiride 4 mg oral tablet (20 sources) Sulfonylurea Start: 03-20-2024 End: 12-06-2024 Start: 09-16-2021 End: 10-12-2023 Start: 09-16-2021 End: 10-12-2023 take 1 tablet by mouth twice daily Glimepiride 4 mg tablet Discontinued 4 mg PO TWICE A DAY September 16, 2021 12:00am October 12, 2023 4:20pm Start: 12-20-2019 End: 09-16-2021 Start: 12-20-2019 End: 08-12-2020 take 1 tablet by mouth once daily Glimepiride 2 MG tablet Discontinued 2 mg PO DAILY December 20, 2019 12:00am August 12, 2020 3:32pm DM Start: 03-04-2016 End: 09-01-2018 12 hr guaiFENesin 600 mg extended release [...] pen injector (20 sources) Insulin Analog Start: 12-06-2024 End: 12-17-2024 Start: 12-22-2019 End: 01-03-2020 Start: 12-22-2019 End: 01-03-2020 Insulin Lispro Discontinued 0 UNIT SC BEFORE MEALS AND AT BEDTIME December 21, 2019 11:00pm January 03, 2020 7:29am 24 hr isosorbide mononitrate 60 mg extended release oral tablet (20 sources) Nitrate Vasodilator Start: 06-14-2024 End: 12-06-2024 Start: 10-13-2022 End: 04-27-2024 Start: 10-13-2022 End: [...] al tablet (20 sources) Angiotensin 2 Receptor Jeffrey Start: 10-01-2023 End: 12-06-2024 Start: 12-15-2022 End: 10-01-2023 Start: 12-15-2022 End: 09-16-2023 take 1 tablet by mouth once daily Losartan (Cozaar) 25 mg tablet Discontinued 25 mg PO DAILY 30 September 13, 2023 8:52am September 16, 2023 9:31am Magnesium (20 sources) Start: 06-04-2019 End: 06-04-2019 [...] 11-21-2021 End: 12-02-2024 Start: 11-21-2021 End: 10-25-2024 metOLazone 2.5 mg oral table t (20 sources) Thiazide-like Diuretic Start: 10-25-2024 End: 12-17-2024 Start: 03-27-2024 End: 04-17-2024 take 1 tablet [...] 16, 2021 10:48am November 21, 2021 10:55am metroNIDAZOLE 500 mg oral ta blet (20 [...] 12-23-2015 End: 06-14-2024 Nut.Tx.Gluc Intol,Lf,Soy-Fiber (Glucerna 1.2 Kenney) 0.06-1.2 gram-kcal/mL Liquid (20 sources) Start: 09-21-2022 End: 10-12-2023 take 1 mL by mouth three times daily at mealtime Nut.Tx.Gluc Intol,Lf,Soy-Fiber (Glucerna 1.2 Kenney) 0.06-1.2 gram-kcal/mL Liquid Discontinued 120 mL PO 3 TIMES DAILY WITH MEALS 0 September 21, 2022 12:00am October 12, 2023 4:22pm Start: 09-21-2022 End: 10-12-2023 take 1 mL by mouth three times daily at mealtime Nut.Tx.Gluc Intol,Lf,Soy-Fiber (Glucerna 1.2 Kenney) 0.06-1.2 gram-kcal/mL Liquid Discontinued 120 mL PO 3 TIMES DAILY WITH MEALS 0 September 21, 2022 12:00am October 12, 2023 4:22pm Start: 09-21-2022 take 1 mL by mouth t hree times daily at mealtime Nut.Tx.Gluc Intol,Lf,Soy-Fiber (Glucerna 1.2 Kenney) 0.06-1.2 gram-kcal/mL Liquid Active 120 ML PO 3 TIMES DAILY WITH MEALS 0 September 20, 2022 11:00pm Start: 09-21-2022 take 1 mL by mouth t hree times daily at mealtime Nut.Tx.Gluc Intol,Lf,Soy-Fiber (Glucerna 1.2 Kenney) 0.06-1.2 gram-kcal/mL Liquid Active 120 ML PO [...] tablet 3 08/07/2016 Active perflutren lipid microspheres (Bloomfire) 0.143 mg/mL solution 0-10 mL of mixture (1 source) Start: 10-15-2020 End: 10-15-2020 perflutren lipid microspheres (Bloomfire) 0.143 mg/mL solution 0-10 mL of mixture [...] Start: 08-27-2017 End: 09-07-2017 12 hr ranolazine 500 mg exte nded release oral tablet (20 sources) Anti-anginal Start: 12-06-2024 End: 12-17-2024 Start: 10-29-2023 End: 11-12-2023 Start: 10-01-2023 End: 10-29-2023 Semaglutide (20 sources) Start: 04-17-2024 End: 05-15-2024 Start: 04-17-2024 End: 05-15-2024 Semaglutide (Ozempic) 0.25 m g or 0.5 mg (2 mg/3 mL) pen injector Discontinued 0.25 mg SC EVERY WEEK 1.47April 17, 2024 1:00am May 14, 2024 1:00am [...] Date Episodic/Chronic Acute and unspecified renal failure (20 sources) Apuqj-ai-nrubrzi renal failure; Translations: [Acute kidney failure, unspecified] Onset: 12-03-2024 12-01-2024 Episodic Acute myocardial infarction (20 sources) Myocardial infarction; Translations: [ST elevation (STEMI) myocardial infarction of unspecified site] Onset: 11-30-2024 11-30-2024 Chronic Asthma (20 sources) Asthma; Translations: [Unspecified asthma, uncomplicated] 10-31-2024 Chronic Cardiac dysrhythmias (16 sources) Paroxysmal ventricular tachycardia; 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] 12-05-2024 Chronic Cardiac dysrhythmias (20 sources) Palpitations; Translations: [Palpitations] Onset: 10-25-2024 Episodic Chronic kidney disease (20 sources) Chronic kidney disease stage 3; Translations: [Stage 3 chronic kidney disease] Onset: 12-07-2024 12-09-2020 Chronic Chronic kidney disease (16 sources) Chronic kidney disease; Translations: [Stage 4 chronic kidney disease] Onset: 07-13-2024 Chronic obstructive pulmonary disease and [...] heart disease (20 sources) Coronary arteriosclerosis in cachil dehe artery; Translations: [Preinfarction syndrome] Onset: 01-05-2015 10-15-2016 [...] used.Successful PTCA/KENDALL Prox RCA ISR using Resolute [place] 3.5x22 mm, post-dilated using 3.[address] 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 Procedure aborted. 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-QNVK-Or and Stent-Mid RCA x 2 Multi Link Mini Vision Rx Stent 4.0 x 28 mm 01/21/2006 Deficiency and other anemia (1 source) Anemia, unspecified; Translations: [Anemia, unspecified] Onset: 10-05-2024 Episodic Diabetes mellitus with complications (8 sources) Diabetes mellitus with complications Diabetes mellitus without complication (20 sources) Diabetes mellitus; Translations: [Type 2 diabetes mellitus without complications] Onset: 11-22-2024 01-05-2015 Chronic Diseases of white blood cells (20 sources) Leukocytosis; Translations: [Elevated white blood cell count, unspecified] Onset: 12-07-2024 12-01-2024 Chronic Disorders of lipid metabolism (20 sources) Hyperlipidemia; Translations: [Hyperlipidemia, unspecified] Onset: 11-22-2024 06-17-2015 Chronic Diverticulosis and diverticulitis (20 sources) Diverticulitis; Translations: [Diverticulitis of intestine, part unspecified, without perforation or abscess without bleeding] 05-27-2021 Chronic E Codes: Fall (15 sources) Fall; Translations: [Unspecified fall, initial encounter] 11-26-2024 Episodic Essential hypertension (20 sources) Hypertensive disorder; Translations: [Essential (primary) hypertension] Onset: 04-18-2024 06-17-2015 Chronic Fluid and electrolyte disorders (20 sources) Lactic acidosis; Translations: [Acidosis] Onset: 12-07-2024 11-26-2020 Episodic Immunizations and screening for infectious [...] injuries and conditions due to external causes (15 sources) Abrasion; Translations: [Other injury of unspecified body region, initial encounter] 11-26-2024 Episodic Other lower respiratory disease (20 sources) Dyspnea; Translations: [Shortness of breath] Episodic Other lower respiratory disease (20 sources) Dyspnea on exertion; Translations: [Dyspnea, unspecified] Episodic Other lower respiratory disease (20 sources) Cough; Translations: [Cough] 01-26-2021 Episodic Other lower respiratory disease (4 sources) Dyspnea, unspecified; Translations: [Other respiratory abnormalities] Onset: 12-08-2024 Episodic Other lower respiratory disease (20 sources) Wheezing; Translations: [Wheezing] 09-20-2024 Episodic Other lower respiratory disease (2 sources) Shortness of breath; Translations: [Shortness of breath] Onset: 12-08-2024 Episodic Other lower respiratory disease (1 source) [...] Translations: [Left-sided weakness] Onset: 11-29-2016 11-29-2016 Chronic Kenyatta-; endo-; and myocarditis; cardiomyopathy (except that caused by tuberculosis or sexually transmitted disease) (4 sources) Pericardial effusion; Translations: [Pericardial effusion] 12-15-2024 Episodic Peripheral and visceral atherosclerosis (10 sources) Peripheral [...] on above: AHI 64.7 Residual codes; unclassified (7 sources) Obstructive sleep apnea (adult) (pediatric); Translations: [...] [Transient cerebral ischemic attack, unspecified] 01-31-2019 Chronic Unclassified (8 sources) Acute ST elevation myocardial infarction (STEMI) of inferior wall Unclassified (8 sources) Coronary vasospasm Unclassified (8 sources) History of inferior wall myocardial infarction Unclassified (8 sources) Nonsustained monomorphic ventricular tachycardia Unclassified (8 sources) Presence of stent in coronary artery Unclassified (1 source) Other pericardial effusion (noninflammatory); Translations: [Other pericardial effusion (noninflammatory)] Onset: 12-21-2024 Unclassified (1 source) Ventricular tachycardia, unspecified; Translations: [Ventricular tachycardia, unspecified] Onset: 12-19-2024 Unclassified (1 source) Other ventricular tachycardia; Translations: [Other ventricular tachycardia] Onset: 12-07-2024 Viral infection (20 sources) Disease caused by [...] Test Name Value Interpretation Reference Range Facility CBC W/Diff, Automatedon 08-2 0-2024 Absolute Lymph 1.39 X10 3/uL Normal 0.83-4.51 [facility] Comment on above: Performed By: #### L 300.3900, L300.4310, L100.0100 ####[facility] [address] [place], [address] Absolute Neut 9.0 X10 3/uL High 2.0-7.7 [facility] Comment on above: Performed By: #### L 300.3900, L300.4310, L100.0100 ####[facility] [address] [place], [address] Basophils/100 WBC (Bld) 0.2 % Normal 0-1 [facility] Comment on above: Performed By: #### L 300.3900, L300.4310, L100.0100 ####[facility] [address] [place], [address] Eosinophils/100 WBC (Bld) 0.1 % Normal 0-5 [facility] Comment on above: Performed By: #### L 300.3900, L300.4310, L100.0100 ####[facility] [address] [place], [address] Erythrocyte distribution width (RBC) [Ratio] 13.8 % Normal 11.6-14.6 [facility] Comment on above: Performed By: #### L 300.3900, L300.4310, L100.0100 ####[facility] [address] [place], [address] Hematocrit (Bld) [Volume fraction] 41.8 % Normal 40-54 [facility] Comment on above: Performed By: #### L 300.3900, L300.4310, L100.0100 ####[facility] [address] [place], [address] Hemoglobin (Bld) [Mass/Vol] 13.8 g/dL Normal 13.0-16.5 [facility] Comment on above: Performed By: #### L 300.3900, L300.4310, L100.0100 ####[facility] [address] [place], [address] IG% 0.500 Normal 0.0-0.9 [facility] Comment on above: Result Comment: IG% - Immature Granulocytes (promyelocytes, myelocytes andmetamyelocytes) > 1% indicates that a LEFT SHIFT is Present. Performed By: #### L 300.3900, L300.4310, L100.0100 ####[facility] [address] [place], [address] Lymphocytes/100 WBC (Bld) 11.8 % Low 19-41 [facility] Comment on above: Performed By: #### L 300.3900, L300.4310, L100.0100 ####[facility] [address] [place], [address] MCH (RBC) [Entitic mass] 28.6 pg Normal 27.0-32.0 [facility] Comment on above: Performed By: #### L 300.3900, L300.4310, L100.0100 ####[facility] [address] [place], [address] MCHC (RBC) [Mass/Vol] 33.0 g/dL Normal 32-36 [facility] Comment on above: Performed By: #### L 300.3900, L300.4310, L100.0100 ####[facility] [address] [place], [address] MCV (RBC) [Entitic vol] 86.7 fL Normal 80-94 [facility] Comment on above: Performed By: #### L 300.3900, L300.4310, L100.0100 ####[facility] [address] [place], [address] Monocytes/100 WBC (Bld) 11.5 % High 0-10 [facility] Comment on above: Performed By: #### L 300.3900, L300.4310, L100.0100 ####[facility] [address] [place], [address] Neutrophils/100 WBC (Bld) 75.9 % High 47-70 [facility] Comment on above: Performed By: #### L 300.3900, L300.4310, L100.0100 ####[facility] [address] [place], [address] Nucleated RBC (Bld) [#/Vol] 0 10*3/uL Normal 0-5 [facility] Comment on above: Performed By: #### L 300.3900, L300.4310, L100.0100 ####[facility] [address] [place], [address] Platelet mean volume (Bld) [Entitic vol] 13.3 fL High 6.2-12.0 [facility] Comment on above: Performed By: #### L 300.3900, L300.4310, L100.0100 ####[facility] [address] [place], [address] Platelets (Bld) [#/Vol] 231 10*3/uL Normal 150-450 [facility] Comment on above: Performed By: #### L 300.3900, L300.4310, L100.0100 ####[facility] [address] [place], [address] RBC (Bld) [#/Vol] 4.82 10*6/uL Normal 4.6-6.2 [facility] Comment on above: Performed By: #### L 300.3900, L300.4310, L100.0100 ####[facility] [address] [place], [address] RDW SD 43.2 fl Normal 35.1-43.9 [facility] Comment on above: Performed By: #### L 300.3900, L300.4310, L100.0100 ####[facility] [address] [place], [address] WBC (Bld) [#/Vol] 11.8 10*3/uL High 4.4-11.0 [facility] Comment on above: Performed By: #### L 300.3900, L300.4310, L100.0100 ####[facility] [address] [place], [address] CTA Abd/Pelvis W/WO Contrast on 12-20-2024 CTA Abd/Pelvis W/WO Contrast Normal [facility] Chest PA and Lateralon 12-20 Chest PA and Lateral Normal [facility] Comprehensive Metabolic Prof ilon 12-20-2024 Albumin [Mass/Vol] 4.0 g/dL Normal 3.4-4.8 [facility] Comment on above: Performed By: #### L 500.4050, L501.5200, L501.2450 ####[facility] [address] [place], [address] Albumin/Globulin [Mass ratio] 1.0 {ratio} Normal 0.9-2.4 [facility] Comment on above: Performed By: #### L 500.4050, L501.5200, L501.2450 ####[facility] [address] [place], [address] ALK PHOS 180 U/L High 40-129 [facility] Comment on above: Performed By: #### L 500.4050, L501.5200, L501.2450 ####[facility] [address] [place], [address] ALT [Catalytic activity/Vol] 32 U/L Normal <=46 [facility] Comment on above: Performed By: #### L 500.4050, L501.5200, L501.2450 ####[facility] [address] [place], [address] AST [Catalytic activity/Vol] 28 U/L Normal <=37 [facility] Comment on above: Performed By: #### L 500.4050, L501.5200, L501.2450 ####[facility] [address] [place], [address] Bilirubin [Mass/Vol] 1.15 mg/dL Normal 0.00-1.30 [facility] Comment on above: Performed By: #### L 500.4050, L501.5200, L501.2450 ####[facility] [address] [place], [address] BUN/CRE 19.5 RATIO Normal 10-20 [facility] Comment on above: Performed By: #### L 500.4050, L501.5200, L501.2450 ####[facility] [address] [place], [address] Calcium [Mass/Vol] 9.5 mg/dL Normal 7.6-11.0 [facility] Comment on above: Performed By: #### L 500.4050, L501.5200, L501.2450 ####[facility] [address] [place], [address] Chloride [Moles/Vol] 93 mmol/L Low 98-108 [facility] Comment on above: Performed By: #### L 500.4050, L501.5200, L501.2450 ####[facility] [address] [place], [address] CO2 [Moles/Vol] 18.5 mmol/L Low 21.0-32.0 [facility] Comment on above: Performed By: #### L 500.4050, L501.5200, L501.2450 ####[facility] [address] [place], [address] Creatinine [Mass/Vol] 3.24 mg/dL High 0.70-1.20 [facility] Comment on above: Performed By: #### L 500.4050, L501.5200, L501.2450 ####[facility] [address] [place], [address] ECRCL 21.32 ml/min Low 50-250 [facility] Comment on above: Performed By: #### L 500.4050, L501.5200, L501.2450 ####[facility] [address] [place], [address] GAP 19 High 5-15 [facility] Comment on above: Performed By: #### L 500.4050, L501.5200, L501.2450 ####[facility] [address] [place], [address] GFR/1.73 sq M.predicted among non-blacks MDRD (S/P/Bld) [Vol rate/Area] 19 mL/min/{1.73_m2} Low >60 [facility] Comment on above: Result Comment: mL/m in/1.73m2 CKD-EPI Creatinine Equation (2020) Performed By: #### L 500.4050, L501.5200, L501.2450 ####[facility] [address] [place], [address] Globulin (S) [Mass/Vol] 4.0 g/dL Normal 2.2-4.2 [facility] Comment on above: Performed By: #### L 500.4050, L501.5200, L501.2450 ####[facility] [address] [place], [address] Glucose [Mass/Vol] 173 mg/dL High 70-99 [facility] Comment on above: Performed By: #### L 500.4050, L501.5200, L501.2450 ####[facility] [address] [place], [address] Potassium [Moles/Vol] 4.2 mmol/L Normal 3.3-5.1 [facility] Comment on above: Performed By: #### L 500.4050, L501.5200, L501.2450 ####[facility] [address] [place], [address] Sodium [Moles/Vol] 131 mmol/L Low 133-145 [facility] Comment on above: Performed By: #### L 500.4050, L501.5200, L501.2450 ####[facility] [address] [place], [address] T PROT 8.0 g/dL Normal 5.9-8.4 [facility] Comment on above: Performed By: #### L 500.4050, L501.5200, L501.2450 ####[facility] [address] [place], [address] Urea nitrogen [Mass/Vol] 63 mg/dL High 4-19 [facility] Comment on above: Performed By: #### L 500.4050, L501.5200, L501.2450 ####[facility] [address] [place], [address] Emergency Department Summary on 12-20-2024 Emergency Department Summary Normal [facility] Lipaseon 12-20-2024 Lipase [Catalytic activity/Vol] 120 U/L High 13-75 [facility] Comment on above: Result Comment: Noah fletcher note:LIPASE revised reference range effective 22.New Lipase methodology. Expected to produce lower valuesthan the previous assay method.NEW Reference Range: 13 - 75 U/L Performed By: #### L 500.4050, L501.5200, L501.2450 ####[facility] [address] [place], [address] Magnesiumon 12-20-2024 Magnesium [Mass/Vol] 2.4 mg/dL High 1.5-2.2 [facility] Comment on above: Performed By: #### L 500.4050, L501.5200, L501.2450 ####[facility] [address] [place], [address] Partial Thromboplast Timeon 12-20-2024 aPTT Coag (Bld) [Time] 27.6 s Normal 24.1-36.2 [facility] Comment on above: Performed By: #### L 300.3900, L300.4310, L100.0100 ####[facility] [address] [place] [place], [address] Prothrombin Time w/INRon INR Coag (PPP) [Relative time] 1.1 {INR} Normal [facility] Comment on above: Performed By: #### L 300.3900, L300.4310, L100.0100 ####[facility] [address] [place], [address] PT Coag (PPP) [Time] 14.1 s Normal 11.7-14.9 [facility] Comment on above: Performed By: #### L 300.3900, L300.4310, L100.0100 ####[facility] [address] [place], [address] Stool Occult Blood iFOBon STOB Positive Normal [facility] Comment on above: Performed By: #### M 100.7900 ####[facility] [address] [place], [address] Type AND Screenon 12-20-2024 ABO and Rh group Nom (Bld) Blood group O Rh(D) positive Normal [facility] Comment on above: Order Comment: Has p t arrived? YHGI Performed By: #### B TS ####[facility] [address] [place], [address] Bedside Glucoseon 12-17-2024 FINGERSTICK GLU 253 mg/dL High 74-106 [facility] Comment on above: Result Comment: WILDA GEMENT OF PATIENT CARE PER NURSING PROTOCOL Performed By: #### L 501.080 ####[facility] [address] [place], [address] FINGERSTICK GLU 178 mg/dL [address] Comment on above: Result Comment: WILDA GEMENT OF PATIENT CARE PER NURSING PROTOCOL Performed By: #### L 501.080 ####[facility] [address] [place], [address] [facility] deOrdered By: Marycarmen Marlow on 12-17-2024 Glucose [Mass/Vol] 253 mg/dL High [address] [facility] Absolute lymphocyte countOrd ered By: Ramonita Herron on 12-16-2024 Lymphocytes Auto (Unsp spec) [#/Vol] 0.93 10*3/uL 0.83-4.51 [facility] Anion gap in Serum or Plasma Ordered By: Ramonita Herron on 12-16-2024 Anion gap [Moles/Vol] 18 mmol/L High 5-15 [facility] Automated lymphocyte count a s percentage of total leukocytesOrdered By: Ramonita Herron on 12-16-2024 Lymphocytes/100 WBC Auto (Unsp spec) 10.7 % Low 19-41 [facility] BUN/creatinine ratioOrdered By: Ramonita Herron on 12-16-2024 Urea nitrogen/Creatinine [Mass ratio] 21.8 mg/mg High 10- [facility] Basic Metabolic Profile (BMP )on 12-16-2024 BUN/CRE 21.8 RATIO High 02-19 [facility] Comment on above: Performed By: #### L 500.2500, L100.0100 ####[facility] [address] [place], [address] Calcium [Mass/Vol] 9.3 mg/dL Normal 7.6-11.0 [facility] Comment on above: Performed By: #### L 500.2500, L100.0100 ####[facility] [address] [place], [address] Chloride [Moles/Vol] 93 mmol/L Low 98-108 [facility] Comment on above: Performed By: #### L 500.2500, L100.0100 ####[facility] [address] [place], [address] CO2 [Moles/Vol] 19.2 mmol/L Low 21.0-32.0 [facility] Comment on above: Performed By: #### L 500.2500, L100.0100 ####[facility] [address] [place], [address] Creatinine [Mass/Vol] 2.65 mg/dL High 0.70-1.20 [facility] Comment on above: Performed By: #### L 500.2500, L100.0100 ####[facility] [address] [place], [address] ECRCL 25.90 ml/min Low 50-250 [facility] Comment on above: Performed By: #### L 500.2500, L100.0100 ####[facility] [address] [place], [address] GAP 18 High 5-15 [facility] Comment on above: Performed By: #### L 500.2500, L100.0100 ####[facility] [address] [place], [address] GFR/1.73 sq M.predicted among non-blacks MDRD (S/P/Bld) [Vol rate/Area] 24 mL/min/{1.73_m2} Low >60 [facility] Comment on above: Result Comment: mL/m in/1.73m2 CKD-EPI Creatinine Equation (2020) Performed By: #### L 500.2500, L100.0100 ####[facility] [address] [place], [address] Glucose [Mass/Vol] 182 mg/dL High 70-99 [facility] Comment on above: Performed By: #### L 500.2500, L100.0100 ####[facility] [address] [place], [address] Potassium [Moles/Vol] 3.8 mmol/L Normal 3.3-5.1 [facility] Comment on above: Performed By: #### L 500.2500, L100.0100 ####[facility] [address] [place], [address] Sodium [Moles/Vol] 131 mmol/L Low 133-145 [facility] Comment on above: Performed By: #### L 500.2500, L100.0100 ####[facility] [address] [place], [address] Urea nitrogen [Mass/Vol] 58 mg/dL High 4-19 [facility] Comment on above: Performed By: #### L 500.2500, L100.0100 ####[facility] [address] [place], [address] Basophil percentageOrdered B y: Ramonita Herron on 12-16-2024 Basophils/100 WBC (Bld) 0.2 % 0-1 [facility] Bedside Glucoseon 12-16-2024 FINGERSTICK GLU 215 mg/dL High 74-106 [facility] Comment on above: Result Comment: WILDA BARROSO OF PATIENT CARE PER NURSING PROTOCOL Performed By: #### L 501.080 ####[facility] [address] [place], [address] FINGERSTICK GLU 237 mg/dL High 74-106 [facility] Comment on above: Result Comment: WILDA GEMENT OF PATIENT CARE PER NURSING PROTOCOL Performed By: #### L 501.080 ####[facility] [address] [place], [address] FINGERSTICK GLU 152 mg/dL High 74-106 [facility] Comment on above: Result Comment: WILDA GEMENT OF PATIENT CARE PER NURSING PROTOCOL Performed By: #### L 501.080 ####[facility] [address] [place], [address] FINGERSTICK GLU 169 mg/dL High 74-106 [facility] Comment on above: Result Comment: WILDA GEMENT OF PATIENT CARE PER NURSING PROTOCOL Performed By: #### L 501.080 ####[facility] [address] [place], [address] CBC W/Diff, Automatedon 12-01 Absolute Lymph 0.93 X10 3/uL Normal 0.83-4.51 [facility] Comment on above: Performed By: #### L 500.2500, L100.0100 ####[facility] [address] [place] [place], [address] Absolute Neut 6.6 X10 3/uL Normal 2.0-7.7 [facility] Comment on above: Performed By: #### L 500.2500, L100.0100 ####[facility] [address] [place], [address] Basophils/100 WBC (Bld) 0.2 % Normal 0-1 [facility] Comment on above: Performed By: #### L 500.2500, L100.0100 ####[facility] [address] [place], [address] Eosinophils/100 WBC (Bld) 0.5 % Normal 0-5 [facility] Comment on above: Performed By: #### L 500.2500, L100.0100 ####[facility] [address] [place], [address] Erythrocyte distribution width (RBC) [Ratio] 13.4 % Normal 11.6-14.6 [facility] Comment on above: Performed By: #### L 500.2500, L100.0100 ####[facility] [address] [place], [address] Hematocrit (Bld) [Volume fraction] 40.1 % Normal 40-54 [facility] Comment on above: Performed By: #### L 500.2500, L100.0100 ####[facility] [address] [place], [address] Hemoglobin (Bld) [Mass/Vol] 13.3 g/dL Normal 13.0-16.5 [facility] Comment on above: Performed By: #### L 500.2500, L100.0100 ####[facility] [address] [place], [address] IG% 0.800 Normal 0.0-0.9 [facility] Comment on above: Result Comment: IG% - Immature Granulocytes (promyelocytes, myelocytes andmetamyelocytes) > 1% indicates that a LEFT SHIFT is Present. Performed By: #### L 500.2500, L100.0100 ####[facility] [address] [place], [address] Lymphocytes/100 WBC (Bld) 10.7 % Low 19-41 [facility] Comment on above: Performed By: #### L 500.2500, L100.0100 ####[facility] [address] [place], [address] MCH (RBC) [Entitic mass] 28.6 pg Normal 27.0-32.0 [facility] Comment on above: Performed By: #### L 500.2500, L100.0100 ####[facility] [address] [place], [address] MCHC (RBC) [Mass/Vol] 33.2 g/dL Normal 32-36 [facility] Comment on above: Performed By: #### L 500.2500, L100.0100 ####[facility] [address] [place], [address] MCV (RBC) [Entitic vol] 86.2 fL Normal 80-94 [facility] Comment on above: Performed By: #### L 500.2500, L100.0100 ####[facility] [address] [place], [address] Monocytes/100 WBC (Bld) 12.1 % High 0-10 [facility] Comment on above: Performed By: #### L 500.2500, L100.0100 ####[facility] [address] [place], [address] Neutrophils/100 WBC (Bld) 75.7 % High 47-70 [facility] Comment on above: Performed By: #### L 500.2500, L100.0100 ####[facility] [address] [place], [address] Nucleated RBC (Bld) [#/Vol] 0 10*3/uL Normal 0-5 [facility] Comment on above: Performed By: #### L 500.2500, L100.0100 ####[facility] [address] [place], [address] Platelet mean volume (Bld) [Entitic vol] 13.2 fL High 6.2-12.0 [facility] Comment on above: Performed By: #### L 500.2500, L100.0100 ####[facility] [address] [place], [address] Platelets (Bld) [#/Vol] 181 10*3/uL Normal 150-450 [facility] Comment on above: Performed By: #### L 500.2500, L100.0100 ####[facility] [address] [place], [address] RBC (Bld) [#/Vol] 4.65 10*6/uL Normal 4.6-6.2 [facility] Comment on above: Performed By: #### L 500.2500, L100.0100 ####[facility] [address] [place], [address] RDW SD 42.2 fl Normal 35.1-43.9 [facility] Comment on above: Performed By: #### L 500.2500, L100.0100 ####[facility] [address] [place], [address] WBC (Bld) [#/Vol] 8.7 10*3/uL Normal 4.4-11.0 [facility] Comment on above: Performed By: #### L 500.2500, L100.0100 ####[facility] [address] [place], [address] Carbon dioxide, total [Moles /volume] in Central venous bloodOrdered By: Ramonita Herron on 12-16-2024 CO2 [Moles/Vol] 19.2 mmol/L Low 21.0-32.0 [facility] Chloride assayOrdered By: Parish Herron on 12-16-2024 Chloride [Moles/Vol] 93 mmol/L Low 98-108 [facility] Eosinophil percentageOrdered By: Ramonita Herron on 12-16-2024 Eosinophils/100 WBC (Bld) 0.5 % 0-5 [facility] Erythrocyte distribution wid th ratioOrdered By: Ramonita Herron on 12-16-2024 Erythrocyte distribution width (RBC) [Ratio] 13.4 % 11.6-14.6 [facility] Erythrocyte distribution wid th standard deviationOrdered By: Ramonita Herron on 12-16-2024 Erythrocyte distribution width (RBC) [Ratio] 42.2 fl 35.1-43.9 [facility] Glomerular filtration rate ( GFR) estimation/1.73 sq m using serum, plasma, or whole bOrdered By: Ramonita Herron on 12-16-2024 GFR/1.73 sq M.predicted among non-blacks MDRD (S/P/Bld) [Vol rate/Area] 24 mL/min/{1.73_m2} Low >60 [facility] Hematocrit Auto (Bld) [Volum e fraction]Ordered By: Ramonita Herron on 12-16-2024 Hematocrit (Bld) [Volume fraction] 40.1 % 40-54 [facility] Hemoglobin measurementOrdere d By: Ramonita Herron on 12-16-2024 Hemoglobin (Bld) [Mass/Vol] 13.3 g/dL 13.0-16.5 [facility] Immature granulocytes/100 WB C Auto (Bld)Ordered By: Ramonita Herron on 12-16-2024 Immature granulocytes/100 WBC (Bld) 0.800 % 0.0-0.9 [facility] MCV (mean corpuscular volume ) determinationOrdered By: Ramonita Herron on 12-16-2024 MCV (RBC) [Entitic vol] 86.2 fL 80-94 [facility] Mean corpuscular hemoglobin (MCH) determinationOrdered By: Ramonita Herron on 12-16-2024 MCH (RBC) [Entitic mass] 28.6 pg 27.0-32.0 [facility] Monocyte percentageOrdered B y: Ramonita Herron on 12-16-2024 Monocytes/100 WBC (Bld) 12.1 % High 0-10 [facility] Neutrophil percentageOrdered By: Ramonita Herron on 12-16-2024 Neutrophils/100 WBC (Bld) 75.7 % High 47-70 [facility] Platelet countOrdered By: Parish Herron on 12-16-2024 Platelets (Bld) [#/Vol] 181 10*3/uL 150-450 [facility] Potassium measurement (mass/ volume)Ordered By: Ramonita Herron on 12-16-2024 Potassium (Unsp spec) [Mass/Vol] 3.8 mmol/L 3.3-5.1 [facility] RBC Auto (Bld) [#/Vol]Ordere d By: Ramonita Herron on 12-16-2024 RBC (Bld) [#/Vol] 4.65 10*6/uL 4.6-6.2 [facility] Serum creatinine measurement (mass/volume)Ordered By: Ramonita Herron on 12-16-2024 Creatinine [Mass/Vol] 2.65 mg/dL High 0.70-1.20 [facility] Serum glucose measurement (m ass/volume)Ordered By: Ramonita Herron on 12-16-2024 Glucose [Mass/Vol] 182 mg/dL High 70-99 [facility] Serum or plasma calcium francine urement (mass/volume)Ordered By: Ramonita Herron on 12-16-2024 Calcium [Mass/Vol] 9.3 mg/dL 7.6-11.0 [facility] Serum or plasma urea nitroge n measurement (mass/volume)Ordered By: Ramonita Herron on 12-16-2024 Urea nitrogen [Mass/Vol] 58 mg/dL High 4-19 [facility] Sodium levelOrdered By: Mary Herron on 12-16-2024 Sodium [Moles/Vol] 131 mmol/L Low 133-145 [facility] White blood cell (WBC) count Ordered By: Ramonita Herron on 12-16-2024 WBC (Bld) [#/Vol] 8.7 10*3/uL 4.4-11.0 [facility] 12 Lead EKGon 12-15-2024 12 Lead EKG Normal [facility] Activated partial thrombopla stin time (aPTT) in platelet poor plasma by coagulation aOrdered By: Payal Weldon on 12-15-2024 aPTT Coag (PPP) [Time] 222.8 s High 24.1-36.2 [facility] Basic Metabolic Profile (BMP )on 12-15-2024 BUN/CRE 20.4 RATIO High 10-20 [facility] Comment on above: Performed By: #### L 500.2500, L100.0100, L300.4310, L300.3900, L503.7505, L501.4021 ####[facility] [address] [place], [place], [id number] Calcium [Mass/Vol] 9.5 mg/dL Normal 7.6-11.0 [facility] Comment on above: Performed By: #### L 500.2500, L100.0100, L300.4310, L300.3900, L503.7505, L501.4021 ####[facility] [address] [place], [address] Chloride [Moles/Vol] 91 mmol/L Low 98-108 [facility] Comment on above: Performed By: #### L 500.2500, L100.0100, L300.4310, L300.3900, L503.7505, L501.4021 ####[facility] [address] [place], [address] CO2 [Moles/Vol] 18.4 mmol/L Low 21.0-32.0 [facility] Comment on above: Performed By: #### L 500.2500, L100.0100, L300.4310, L300.3900, L503.7505, L501.4021 ####[facility] [address] [place], [address] Creatinine [Mass/Vol] 2.90 mg/dL High 0.70-1.20 [facility] Comment on above: Performed By: #### L 500.2500, L100.0100, L300.4310, L300.3900, L503.7505, L501.4021 ####[facility] [address] [place], [address] ECRCL 23.97 ml/min Low 50-250 [facility] Comment on above: Performed By: #### L 500.2500, L100.0100, L300.4310, L300.3900, L503.7505, L501.4021 ####[facility] [address] [place], [address] GAP 19 High 5-15 [facility] Comment on above: Performed By: #### L 500.2500, L100.0100, L300.4310, L300.3900, L503.7505, L501.4021 ####[facility] [address] [place], [address] GFR/1.73 sq M.predicted among non-blacks MDRD (S/P/Bld) [Vol rate/Area] 21 mL/min/{1.73_m2} Low >60 [facility] Comment on above: Result Comment: mL/m in/1.73m2 CKD-EPI Creatinine Equation (2020) Performed By: #### L 500.2500, L100.0100, L300.4310, L300.3900, L503.7505, L501.4021 ####[facility] [address] [place], [address] Glucose [Mass/Vol] 266 mg/dL High 70-99 [facility] Comment on above: Performed By: #### L 500.2500, L100.0100, L300.4310, L300.3900, L503.7505, L501.4021 ####[facility] [address] [place], [address] Potassium [Moles/Vol] 4.5 mmol/L Normal 3.3-5.1 [facility] Comment on above: Performed By: #### L 500.2500, L100.0100, L300.4310, L300.3900, L503.7505, L501.4021 ####[facility] [address] [place], [address] Sodium [Moles/Vol] 129 mmol/L Low 133-145 [facility] Comment on above: Performed By: #### L 500.2500, L100.0100, L300.4310, L300.3900, L503.7505, L501.4021 ####[facility] [address] [place], [address] Urea nitrogen [Mass/Vol] 59 mg/dL High 4-19 [facility] Comment on above: Performed By: #### L 500.2500, L100.0100, L300.4310, L300.3900, L503.7505, L501.4021 ####[facility] [address] [place], [address] Bedside Glucoseon 12-15-2024 FINGERSTICK GLU 192 mg/dL High 74-106 [facility] Comment on above: Result Comment: WILDA GEMENT OF PATIENT CARE PER NURSING PROTOCOL Performed By: #### L 501.080 ####[facility] [address] [place], [address] FINGERSTICK GLU 186 mg/dL High 74-106 [facility] Comment on above: Result Comment: WILDA GEMENT OF PATIENT CARE PER NURSING PROTOCOL Performed By: #### L 501.080 ####[facility] [address] [place], [address] CBC W/Diff, Automatedon 08- Absolute Lymph 1.43 X10 3/uL Normal 0.83-4.51 [facility] Comment on above: Performed By: #### L 500.2500, L100.0100, L300.4310, L300.3900, L503.7505, L501.4021 ####[facility] [address] [place], [address] Absolute Neut 11.7 X10 3/uL High 2.0-7.7 [facility] Comment on above: Performed By: #### L 500.2500, L100.0100, L300.4310, L300.3900, L503.7505, L501.4021 ####[facility] [address] [place], [address] Basophils/100 WBC (Bld) 0.2 % Normal 0-1 [facility] Comment on above: Performed By: #### L 500.2500, L100.0100, L300.4310, L300.3900, L503.7505, L501.4021 ####[facility] [address] [place], [address] Eosinophils/100 WBC (Bld) 0.1 % Normal 0-5 [facility] Comment on above: Performed By: #### L 500.2500, L100.0100, L300.4310, L300.3900, L503.7505, L501.4021 ####[facility] [address] [place], [address] Erythrocyte distribution width (RBC) [Ratio] 13.4 % Normal 11.6-14.6 [facility] Comment on above: Performed By: #### L 500.2500, L100.0100, L300.4310, L300.3900, L503.7505, L501.4021 ####[facility] [address] [place], [address] Hematocrit (Bld) [Volume fraction] 40.2 % Normal 40-54 [facility] Comment on above: Performed By: #### L 500.2500, L100.0100, L300.4310, L300.3900, L503.7505, L501.4021 ####[facility] [address] [place], [address] Hemoglobin (Bld) [Mass/Vol] 13.7 g/dL Normal 13.0-16.5 [facility] Comment on above: Performed By: #### L 500.2500, L100.0100, L300.4310, L300.3900, L503.7505, L501.4021 ####[facility] [address] [place], [address] IG% 0.800 Normal 0.0-0.9 [facility] Comment on above: Result Comment: IG% - Immature Granulocytes (promyelocytes, myelocytes andmetamyelocytes) > 1% indicates that a LEFT SHIFT is Present. Performed By: #### L 500.2500, L100.0100, L300.4310, L300.3900, L503.7505, L501.4021 ####[facility] [address] [place], [address] Lymphocytes/100 WBC (Bld) 9.7 % Low 19-41 [facility] Comment on above: Performed By: #### L 500.2500, L100.0100, L300.4310, L300.3900, L503.7505, L501.4021 ####[facility] [address] [place], [address] MCH (RBC) [Entitic mass] 29.0 pg Normal 27.0-32.0 [facility] Comment on above: Performed By: #### L 500.2500, L100.0100, L300.4310, L300.3900, L503.7505, L501.4021 ####[facility] [address] [place], [address] MCHC (RBC) [Mass/Vol] 34.1 g/dL Normal 32-36 [facility] Comment on above: Performed By: #### L 500.2500, L100.0100, L300.4310, L300.3900, L503.7505, L501.4021 ####[facility] [address] [place], [address] MCV (RBC) [Entitic vol] 85.2 fL Normal 80-94 [facility] Comment on above: Performed By: #### L 500.2500, L100.0100, L300.4310, L300.3900, L503.7505, L501.4021 ####[facility] [address] [place], [address] Monocytes/100 WBC (Bld) 9.9 % Normal 0-10 [facility] Comment on above: Performed By: #### L 500.2500, L100.0100, L300.4310, L300.3900, L503.7505, L501.4021 ####[facility] [address] [place], [address] Neutrophils/100 WBC (Bld) 79.3 % High 47-70 [facility] Comment on above: Performed By: #### L 500.2500, L100.0100, L300.4310, L300.3900, L503.7505, L501.4021 ####[facility] [address] [place], [address] Nucleated RBC (Bld) [#/Vol] 0 10*3/uL Normal 0-5 [facility] Comment on above: Performed By: #### L 500.2500, L100.0100, L300.4310, L300.3900, L503.7505, L501.4021 ####[facility] [address] [place], [address] Platelet mean volume (Bld) [Entitic vol] 13.4 fL High 6.2-12.0 [facility] Comment on above: Performed By: #### L 500.2500, L100.0100, L300.4310, L300.3900, L503.7505, L501.4021 ####[facility] [address] [place], [address] Platelets (Bld) [#/Vol] 242 10*3/uL Normal 150-450 [facility] Comment on above: Performed By: #### L 500.2500, L100.0100, L300.4310, L300.3900, L503.7505, L501.4021 ####[facility] [address] [place], [address] RBC (Bld) [#/Vol] 4.72 10*6/uL Normal 4.6-6.2 [facility] Comment on above: Performed By: #### L 500.2500, L100.0100, L300.4310, L300.3900, L503.7505, L501.4021 ####[facility] [address] [place], [address] RDW SD 41.6 fl Normal 35.1-43.9 [facility] Comment on above: Performed By: #### L 500.2500, L100.0100, L300.4310, L300.3900, L503.7505, L501.4021 ####[facility] [address] [place], [address] WBC (Bld) [#/Vol] 14.8 10*3/uL High 4.4-11.0 [facility] Comment on above: Performed By: #### L 500.2500, L100.0100, L300.4310, L300.3900, L503.7505, L501.4021 ####[facility] [address] [place], [address] Chest 1 View (Portable)on Chest 1 View (Portable) Normal [facility] Consultation - Cardiologyon 12-15-2024 Consultation - Cardiology Normal [facility] Echo, Limited Studyon 2024 Echo, Limited Study Normal [facility] Emergency Department Summary on 12-15-2024 Emergency Department Summary Normal [facility] H AND P Exam - Hospitaliston 12-15-2024 H&P Exam - Hospitalist Normal [facility] L501.4021on 12-15-2024 Trop T High Sen 1137 ng/L Invalid Interpretation Code <=22 [facility] Comment on above: Result Comment: Crit ical Result(s) Called at 1318: by: MONICA KOO.??Results read back by same. Performed By: #### L 500.2500, L100.0100, L300.4310, L300.3900, L503.7505, L501.4021 ####[facility] [address] [place], [place], [address] Limited echocardiogram repor tOrdered By: Sunil Faye on 12-15-2024 Study report [facility] Natriuretic peptide.B prohor efrem N-Terminal [Mass/volume] in Serum or PlasmaOrdered By: Payal Weldon on 12-15-2024 Natriuretic peptide.B prohormone N-Terminal [Mass/Vol] 1961 pg/mL High <1800 [facility] Partial Thromboplast Timeon 12-15-2024 aPTT Coag (Bld) [Time] 222.8 s Invalid Interpretation Code 24.1-36.2 [facility] Comment on above: Order Comment: CRITI KENNEY VALUE CALLED TO sandy archer12/15/24 Indra Huynh.RESULTS READ BACK BY same Performed By: #### L 500.2500, L100.0100, L300.4310, L300.3900, L503.7505, L501.4021 ####[facility] [address] [place], [address] Pro- Brain NATRIURETIC PEPTI Sharon 12-15-2024 Natriuretic peptide B (Bld) [Mass/Vol] 1961 pg/mL High <=1800 [facility] Comment on above: Result Comment: Hear t Failure Unlikely: < 300 pg/mLHeart Failure Likely< 50 Years: > 450 pg/mL50-75 Years: > 900 pg/mL>75 Years: > 1800 pg/mL Performed By: #### L 500.2500, L100.0100, L300.4310, L300.3900, L503.7505, L501.4021 ####[facility] [address] [place], [place], [address] Prothrombin Time w/INRon INR Coag (PPP) [Relative time] 1.3 {INR} Normal [facility] Comment on above: Order Comment: CRITI KENNEY VALUE CALLED TO sandy archer12/15/24 Indra Huynh.RESULTS READ BACK BY same Performed By: #### L 500.2500, L100.0100, L300.4310, L300.3900, L503.7505, L501.4021 ####[facility] [address] [place], [address] PT Coag (PPP) [Time] 16.8 s High 11.7-14.9 [facility] Comment on above: Order Comment: CRITI KENNEY VALUE CALLED TO sandy archer12/15/24 1355 Lexii Huynh.RESULTS READ BACK BY same Performed By: #### L 500.2500, L100.0100, L300.4310, L300.3900, L503.7505, L501.4021 ####[facility] [address] [place], [address] Prothrombin timeOrdered By: Payal Weldon on 12-15-2024 PT Coag (PPP) [Time] 16.8 s High 11.7-14.9 [facility] Troponin T HS 2 HRon 025 Trop T High Sen 1199 ng/L Invalid Interpretation Code <=22 [facility] Comment on above: Order Comment: WAS T O BE DRAWN AT 1411 STILL IN ER AT 1440 CALLED ER [facility] THEY'RE BUSY BUT SHELL ELT THE NURSE KNOW Result Comment: Crit ical Result(s) Called at 1718: by:MONICA ANTONIO. ??Results read back by same. Performed By: #### L 499.0042 ####[facility] [address] [place], [address] Troponin T HS 4 HRon 025 Trop T High Sen 1115 ng/L Invalid Interpretation Code <=22 [facility] Comment on above: Result Comment: Crit ical result called 12/15/2024-20:19 by Seymour Mcclure. Results read back by same.Hemolysis present, Results??could be affected.??Critical Result(s) Called at: by:??Results read back bysa. Performed By: #### L 499.0043 ####[facility] [address] [place], [address] Troponin T.cardiac [Mass/vol ume] in Serum or Plasma by High sensitivity methodOrdered By: Payal Weldon on 12-15-2024 Troponin T.cardiac High sensitivity method [Mass/Vol] 1115 ng/L High <22 [facility] Troponin T.cardiac High sensitivity method [Mass/Vol] 1199 ng/L High <22 [facility] Troponin T.cardiac High sensitivity method [Mass/Vol] 1137 ng/L High <22 [facility] Cardiac Cath Interventionon 12-14-2024 Cardiac Cath Intervention Normal [facility] Absolute lymphocyte countOrd ered By: Boyd Rock on 12-13-2024 Lymphocytes Auto (Unsp spec) [#/Vol] 1.28 10*3/uL 0.83-4.51 [facility] Anion gap in Serum or Plasma Ordered By: oByd Rock on 12-13-2024 Anion gap [Moles/Vol] 21 mmol/L High 5-15 [facility] Automated lymphocyte count a s percentage of total leukocytesOrdered By: Boyd Rock on 12-13-2024 Lymphocytes/100 WBC Auto (Unsp spec) 9.3 % Low 19-41 [facility] BUN/creatinine ratioOrdered By: Boyd Rock on 12-13-2024 Urea nitrogen/Creatinine [Mass ratio] 18.7 mg/mg 10-20 [facility] Basophil percentageOrdered B y: Boyd Rock on 12-13-2024 Basophils/100 WBC (Bld) 0.4 % 0-1 [facility] Bilirubin, totalOrdered By: Boyd Rock on 12-13-2024 Bilirubin [Mass/Vol] 1.60 mg/dL High 0.00-1.30 [facility] Carbon dioxide, total [Moles /volume] in Central venous bloodOrdered By: Boyd Rock on 12-13-2024 CO2 [Moles/Vol] 15.7 mmol/L Low 21.0-32.0 [facility] Chloride assayOrdered By: Susanna Rock on 12-13-2024 Chloride [Moles/Vol] 93 mmol/L Low 98-108 [facility] Eosinophil percentageOrdered By: Susannaandrés Castañedamiveronica on 12-13-2024 Eosinophils/100 WBC (Bld) 1.5 % 0-5 [facility] Erythrocyte distribution wid th ratioOrdered By: garryadamsbrittni Castañedamiveronica on 12-13-2024 Erythrocyte distribution width (RBC) [Ratio] 14.3 % 11.6-14.6 [facility] Erythrocyte distribution wid th standard deviationOrdered By: Lupeadamsbrittni Castañedamiveronica on 12-13-2024 Erythrocyte distribution width (RBC) [Ratio] 45.2 fl High 35.1-43.9 [facility] Glomerular filtration rate ( GFR) estimation/1.73 sq m using serum, plasma, or whole bOrdered By: Boyd Rock on 12-13-2024 GFR/1.73 sq M.predicted among non-blacks MDRD (S/P/Bld) [Vol rate/Area] 19 mL/min/{1.73_m2} Low >60 [facility] Hematocrit Auto (Bld) [Volum e fraction]Ordered By: Boyd Rock 12-13-2024 Hematocrit (Bld) [Volume fraction] 35.9 % Low 40-54 [facility] Hemoglobin measurementOrdere d By: Boyd Rock 12-13-2024 Hemoglobin (Bld) [Mass/Vol] 11.8 g/dL Low 13.0-16.5 [facility] Immature granulocytes/100 WB C Auto (Bld)Ordered By: Boyd Rock 12-13-2024 Immature granulocytes/100 WBC (Bld) 0.700 % 0.0-0.9 [facility] MCV (mean corpuscular volume ) determinationOrdered By: Boyd Rock 12-13-2024 MCV (RBC) [Entitic vol] 87.6 fL 80-94 [facility] Mean corpuscular hemoglobin (MCH) determinationOrdered By: Lupeadamsbrittni Rock 12-13-2024 MCH (RBC) [Entitic mass] 28.8 pg 27.0-32.0 [facility] Monocyte percentageOrdered B y: Susannagarrytesha Garryliane on 12-13-2024 Monocytes/100 WBC (Bld) 8.7 % 0-10 [facility] Neutrophil percentageOrdered By: Susannagarrytesha Garrymiveronica on 12-13-2024 Neutrophils/100 WBC (Bld) 79.4 % High 47-70 [facility] No Panel InformationOrdered By: Boyd Rock on 12-13-2024 29 U/L <38 [facility] Platelet countOrdered By: Susanna meenabrittni Rock on 12-13-2024 Platelets (Bld) [#/Vol] 199 10*3/uL 150-450 [facility] Potassium measurement (mass/ volume)Ordered By: Boyd Rock on 12-13-2024 Potassium (Unsp spec) [Mass/Vol] 5.1 mmol/L 3.3-5.1 [facility] RBC Auto (Bld) [#/Vol]Ordere d By: Lupeabbeybrittni Castañedamiveronica on 12-13-2024 RBC (Bld) [#/Vol] 4.10 10*6/uL Low 4.6-6.2 [facility] Serum creatinine measurement (mass/volume)Ordered By: Boyd Rock on 12-13-2024 Creatinine [Mass/Vol] 3.18 mg/dL High 0.70-1.20 [facility] Serum globulin measurementOr dered By: Boyd Rock on 12-13-2024 Globulin (S) [Mass/Vol] 4.2 g/dL 2.2-4.2 [facility] Serum glucose measurement (m ass/volume)Ordered By: Boyd Rock on 12-13-2024 Glucose [Mass/Vol] 289 mg/dL High 70-99 [facility] Serum or plasma alanine guerrero otransferase (ALT) measurementOrdered By: Boyd Rock on 12-13-2024 ALT [Catalytic activity/Vol] 22 U/L <47 [facility] Serum or plasma albumin francine urement (mass/volume)Ordered By: Boyd Rock 12-13-2024 Albumin [Mass/Vol] 4.1 g/dL 3.4-4.8 [facility] Serum or plasma albumin/glob ulin mass ratioOrdered By: Boyd Rock on 12-13-2024 Albumin/Globulin [Mass ratio] 1.0 {ratio} 0.9-2.4 [facility] Serum or plasma alkaline bell sphatase measurementOrdered By: Boyd Rock on 12-13-2024 ALP [Catalytic activity/Vol] 147 U/L High 40-129 [facility] Serum or plasma calcium francine urement (mass/volume)Ordered By: Boyd Rock on 12-13-2024 Calcium [Mass/Vol] 9.7 mg/dL 7.6-11.0 [facility] Serum or plasma urea nitroge n measurement (mass/volume)Ordered By: Boyd Rock on 12-13-2024 Urea nitrogen [Mass/Vol] 59 mg/dL High 4-19 [facility] Sodium levelOrdered By: Lupe gallowayluis m Shweta on 12-13-2024 Sodium [Moles/Vol] 130 mmol/L Low 133-145 [facility] T4 freeOrdered By: Lupetesha Shweta on 12-13-2024 Free T4 [Mass/Vol] 1.40 ng/dL 0.76-1.46 [facility] Total proteinOrdered By: Anastacio nicole Shweta on 12-13-2024 Protein [Mass/Vol] 8.3 g/dL 5.9-8.4 [facility] White blood cell (WBC) count Ordered By: Boyd Rock on 12-13-2024 WBC (Bld) [#/Vol] 13.7 10*3/uL High 4.4-11.0 [facility] Anion gap in Serum or Plasma Ordered By: Gustabo Pérez on 12-12-2024 Anion gap [Moles/Vol] 17 mmol/L High 5-15 [facility] BUN/creatinine ratioOrdered By: Gustabo Pérez on 12-12-2024 Urea nitrogen/Creatinine [Mass ratio] 17.9 mg/mg - [facility] Basic Metabolic Profile (BMP )on 12-12-2024 BUN/CRE 17.9 RATIO Normal - [facility] Comment on above: Performed By: #### L 500.2500 ####[facility] [address] [place], [address] Calcium [Mass/Vol] 9.6 mg/dL Normal 7.6-11.0 [facility] Comment on above: Performed By: #### L 500.2500 ####[facility] [address] [place], [address] Chloride [Moles/Vol] 93 mmol/L Low 98-108 [facility] Comment on above: Performed By: #### L 500.2500 ####[facility] [address] [place], [address] CO2 [Moles/Vol] 18.2 mmol/L Low 21.0-32.0 [facility] Comment on above: Performed By: #### L 500.2500 ####[facility] [address] [place], [address] Creatinine [Mass/Vol] 3.15 mg/dL High 0.70-1.20 [facility] Comment on above: Performed By: #### L 500.2500 ####[facility] [address] [place], [address] GAP 17 High 5-15 [facility] Comment on above: Performed By: #### L 500.2500 ####[facility] [address] [place], [address] GFR/1.73 sq M.predicted among non-blacks MDRD (S/P/Bld) [Vol rate/Area] 19 mL/min/{1.73_m2} Low >60 [facility] Comment on above: Result Comment: mL/m in/1.73m2 CKD-EPI Creatinine Equation (2020) Performed By: #### L 500.2500 ####[facility] [address] [place], [address] Glucose [Mass/Vol] 289 mg/dL High 70-99 [facility] Comment on above: Performed By: #### L 500.2500 ####[facility] [address] [place], [address] Potassium [Moles/Vol] 5.0 mmol/L Normal 3.3-5.1 [facility] Comment on above: Result Comment: Hemo lysis present, Results??could be affected.?? Performed By: #### L 500.2500 ####[facility] [address] [place], [address] Sodium [Moles/Vol] 128 mmol/L Low 133-145 [facility] Comment on above: Performed By: #### L 500.2500 ####[facility] [address] [place], [address] Urea nitrogen [Mass/Vol] 56 mg/dL High 4-19 [facility] Comment on above: Performed By: #### L 500.2500 ####[facility] [address] [place], [address] Carbon dioxide, total [Moles /volume] in Central venous bloodOrdered By: Gustabo Pérez on 12-12-2024 CO2 [Moles/Vol] 18.2 mmol/L Low 21.0-32.0 [facility] Cardiology Visit Reporton Cardiology Visit Report Normal [facility] Chloride assayOrdered By: Lydia Pérez on 12-12-2024 Chloride [Moles/Vol] 93 mmol/L Low 98-108 [facility] Glomerular filtration rate ( GFR) estimation/1.73 sq m using serum, plasma, or whole bOrdered By: Gustabo Pérez on 12-12-2024 GFR/1.73 sq M.predicted among non-blacks MDRD (S/P/Bld) [Vol rate/Area] 19 mL/min/{1.73_m2} Low >60 [facility] Potassium measurement (mass/ volume)Ordered By: Gustabo Pérez on 12-12-2024 Potassium (Unsp spec) [Mass/Vol] 5.0 mmol/L 3.3-5.1 [facility] Serum creatinine measurement (mass/volume)Ordered By: Gustabo Pérez on 12-12-2024 Creatinine [Mass/Vol] 3.15 mg/dL High 0.70-1.20 [facility] Serum glucose measurement (m ass/volume)Ordered By: Gustabo Pérez on 12-12-2024 Glucose [Mass/Vol] 289 mg/dL High 70-99 [facility] Serum or plasma calcium francine urement (mass/volume)Ordered By: Gustabo Pérez on 12-12-2024 Calcium [Mass/Vol] 9.6 mg/dL 7.6-11.0 [facility] Serum or plasma urea nitroge n measurement (mass/volume)Ordered By: Gustabo Pérez on 12-12-2024 Urea nitrogen [Mass/Vol] 56 mg/dL High 4-19 [facility] Sodium levelOrdered By: Gustabo Pérez on 12-12-2024 Sodium [Moles/Vol] 128 mmol/L Low 133-145 [facility] Cardiac Cath Interventionon 12-11-2024 Cardiac Cath Intervention Normal [facility] Absolute lymphocyte countOrd ered By: Shaan Santos on 12-08-2024 Lymphocytes Auto (Unsp spec) [#/Vol] 1.20 10*3/uL 0.83-4.51 [facility] Anion gap in Serum or Plasma Ordered By: Shaan Santos on 12-08-2024 Anion gap [Moles/Vol] 18 mmol/L High 5-15 [facility] Automated lymphocyte count a s percentage of total leukocytesOrdered By: Shaan Santos on 12-08-2024 Lymphocytes/100 WBC Auto (Unsp spec) 11.4 % Low 19-41 [facility] BUN/creatinine ratioOrdered By: Shaan Santos on 12-08-2024 Urea nitrogen/Creatinine [Mass ratio] 15.6 mg/mg 10- [facility] Basic Metabolic Profile (BMP )on 12-08-2024 BUN/CRE 15.6 RATIO Normal - [facility] Comment on above: Performed By: #### L 100.0100, L500.2500 ####[facility] [address] [place], [address] Calcium [Mass/Vol] 9.6 mg/dL Normal 7.6-11.0 [facility] Comment on above: Performed By: #### L 100.0100, L500.2500 ####[facility] [address] [place], [address] Chloride [Moles/Vol] 95 mmol/L Low 98-108 [facility] Comment on above: Performed By: #### L 100.0100, L500.2500 ####[facility] [address] [place], [address] CO2 [Moles/Vol] 21.2 mmol/L Normal 21.0-32.0 [facility] Comment on above: Performed By: #### L 100.0100, L500.2500 ####[facility] [address] [place], [address] Creatinine [Mass/Vol] 2.84 mg/dL High 0.70-1.20 [facility] Comment on above: Performed By: #### L 100.0100, L500.2500 ####[facility] [address] [place], [address] ECRCL 24.45 ml/min Low 50-250 [facility] Comment on above: Performed By: #### L 100.0100, L500.2500 ####[facility] [address] [place], [address] GAP 18 High 5-15 [facility] Comment on above: Performed By: #### L 100.0100, L500.2500 ####[facility] [address] [place], [address] GFR/1.73 sq M.predicted among non-blacks MDRD (S/P/Bld) [Vol rate/Area] 22 mL/min/{1.73_m2} Low >60 [facility] Comment on above: Result Comment: mL/m in/1.73m2 CKD-EPI Creatinine Equation (2020) Performed By: #### L 100.0100, L500.2500 ####[facility] [address] [place], [address] Glucose [Mass/Vol] 178 mg/dL High 70-99 [facility] Comment on above: Performed By: #### L 100.0100, L500.2500 ####[facility] [address] [place], [address] Potassium [Moles/Vol] 3.4 mmol/L Normal 3.3-5.1 [facility] Comment on above: Performed By: #### L 100.0100, L500.2500 ####[facility] [address] [place], [address] Sodium [Moles/Vol] 134 mmol/L Normal 133-145 [facility] Comment on above: Performed By: #### L 100.0100, L500.2500 ####[facility] [address] [place], [address] Urea nitrogen [Mass/Vol] 44 mg/dL High 4-19 [facility] Comment on above: Performed By: #### L 100.0100, L500.2500 ####[facility] [address] [place], [address] BUN Normal -19 [facility] Comment on above: Result Comment: Canc elled via OM: Order cancelled - Patient discharged Performed By: #### L 500.2500, L100.0100 ####[facility] [address] [place], [address] BUN/CRE Normal -20 [facility] Comment on above: Result Comment: Canc elled via OM: Order cancelled - Patient discharged Performed By: #### L 500.2500, L100.0100 ####[facility] [address] [place], [address] Calcium Normal 7.6-11.0 [facility] Comment on above: Result Comment: Canc elled via OM: Order cancelled - Patient discharged Performed By: #### L 500.2500, L100.0100 ####[facility] [address] [place], [address] CL Normal 98-108 [facility] Comment on above: Result Comment: Canc elled via OM: Order cancelled - Patient discharged Performed By: #### L 500.2500, L100.0100 ####[facility] [address] [place], [address] CO2 Normal 21.0-32.0 [facility] Comment on above: Result Comment: Canc elled via OM: Order cancelled - Patient discharged Performed By: #### L 500.2500, L100.0100 ####[facility] [address] [place], [address] CREAT,SERUM Normal 0.70-1.20 [facility] Comment on above: Result Comment: Canc elled via OM: Order cancelled - Patient discharged Performed By: #### L 500.2500, L100.0100 ####[facility] [address] [place], [address] eGFR Normal >60 [facility] Comment on above: Result Comment: Canc elled via OM: Order cancelled - Patient discharged Performed By: #### L 500.2500, L100.0100 ####[facility] [address] [place], [address] GAP Normal 5-15 [facility] Comment on above: Result Comment: Canc elled via OM: Order cancelled - Patient discharged Performed By: #### L 500.2500, L100.0100 ####[facility] [address] [place], [address] GLU Normal 70-99 [facility] Comment on above: Result Comment: Canc elled via OM: Order cancelled - Patient discharged Performed By: #### L 500.2500, L100.0100 ####[facility] [address] [place], [address] Potassium Normal 3.3-5.1 [facility] Comment on above: Result Comment: Canc elled via OM: Order cancelled - Patient discharged Performed By: #### L 500.2500, L100.0100 ####[facility] [address] [place], [address] Basic Metabolic Profile (BMP) Normal 133-145 [facility] Comment on above: Result Comment: Canc elled via OM: Order cancelled - Patient discharged Performed By: #### L 500.2500, L100.0100 ####[facility] [address] [place], [address] Basophil percentageOrdered B y: Shaan Santos on 12-08-2024 Basophils/100 WBC (Bld) 0.5 % 0-1 [facility] Bedside Glucoseon 12-08-2024 FINGERSTICK GLU 249 mg/dL High 74-106 [facility] Comment on above: Result Comment: WILDA GEMENT OF PATIENT CARE PER NURSING PROTOCOL Performed By: #### L 501.080 ####[facility] [address] [place], [address] FINGERSTICK GLU 185 mg/dL High 74-106 [facility] Comment on above: Result Comment: WILDA GEMENT OF PATIENT CARE PER NURSING PROTOCOL Performed By: #### L 501.080 ####[facility] [address] [place], [address] FINGERSTICK GLU 222 mg/dL High 74-106 [facility] Comment on above: Result Comment: WILDA GEMENT OF PATIENT CARE PER NURSING PROTOCOL Performed By: #### L 501.080 ####[facility] [address] [place] [place], [address] CBC W/Diff, Automatedon 08-0 8-2024 Absolute Lymph 1.20 X10 3/uL Normal 0.83-4.51 [facility] Comment on above: Performed By: #### L 100.0100, L500.2500 ####[facility] [address] [place], [address] Absolute Neut 7.8 X10 3/uL High 2.0-7.7 [facility] Comment on above: Performed By: #### L 100.0100, L500.2500 ####[facility] [address] [place], [address] Basophils/100 WBC (Bld) 0.5 % Normal 0-1 [facility] Comment on above: Performed By: #### L 100.0100, L500.2500 ####[facility] [address] [place], [address] Eosinophils/100 WBC (Bld) 1.0 % Normal 0-5 [facility] Comment on above: Performed By: #### L 100.0100, L500.2500 ####[facility] [address] [place], [address] Erythrocyte distribution width (RBC) [Ratio] 13.4 % Normal 11.6-14.6 [facility] Comment on above: Performed By: #### L 100.0100, L500.2500 ####[facility] [address] [place], [address] Hematocrit (Bld) [Volume fraction] 39.2 % Low 40-54 [facility] Comment on above: Performed By: #### L 100.0100, L500.2500 ####[facility] [address] [place], [address] Hemoglobin (Bld) [Mass/Vol] 12.9 g/dL Low 13.0-16.5 [facility] Comment on above: Performed By: #### L 100.0100, L500.2500 ####[facility] [address] [place], [address] IG% 0.900 Normal 0.0-0.9 [facility] Comment on above: Result Comment: IG% - Immature Granulocytes (promyelocytes, myelocytes andmetamyelocytes) > 1% indicates that a LEFT SHIFT is Present. Performed By: #### L 100.0100, L500.2500 ####[facility] [address] [place], [address] Lymphocytes/100 WBC (Bld) 11.4 % Low 19-41 [facility] Comment on above: Performed By: #### L 100.0100, L500.2500 ####[facility] [address] [place], [address] MCH (RBC) [Entitic mass] 28.9 pg Normal 27.0-32.0 [facility] Comment on above: Performed By: #### L 100.0100, L500.2500 ####[facility] [address] [place], [address] MCHC (RBC) [Mass/Vol] 32.9 g/dL Normal 32-36 [facility] Comment on above: Performed By: #### L 100.0100, L500.2500 ####[facility] [address] [place], [address] MCV (RBC) [Entitic vol] 87.7 fL Normal 80-94 [facility] Comment on above: Performed By: #### L 100.0100, L500.2500 ####[facility] [address] [place], [address] Monocytes/100 WBC (Bld) 12.1 % High 0-10 [facility] Comment on above: Performed By: #### L 100.0100, L500.2500 ####[facility] [address] [place], [address] Neutrophils/100 WBC (Bld) 74.1 % High 47-70 [facility] Comment on above: Performed By: #### L 100.0100, L500.2500 ####[facility] [address] [place], [address] Nucleated RBC (Bld) [#/Vol] 0 10*3/uL Normal 0-5 [facility] Comment on above: Performed By: #### L 100.0100, L500.2500 ####[facility] [address] [place], [address] Platelet mean volume (Bld) [Entitic vol] 13.2 fL High 6.2-12.0 [facility] Comment on above: Performed By: #### L 100.0100, L500.2500 ####[facility] [address] [place], [address] Platelets (Bld) [#/Vol] 178 10*3/uL Normal 150-450 [facility] Comment on above: Performed By: #### L 100.0100, L500.2500 ####[facility] [address] [place], [address] RBC (Bld) [#/Vol] 4.47 10*6/uL Low 4.6-6.2 [facility] Comment on above: Performed By: #### L 100.0100, L500.2500 ####[facility] [address] [place], [address] RDW SD 42.8 fl Normal 35.1-43.9 [facility] Comment on above: Performed By: #### L 100.0100, L500.2500 ####[facility] [address] [place], [address] WBC (Bld) [#/Vol] 10.5 10*3/uL Normal 4.4-11.0 [facility] Comment on above: Performed By: #### L 100.0100, L500.2500 ####[facility] [address] [place], [address] Absolute Neut Normal 2.0-7.7 [facility] Comment on above: Result Comment: Canc elled via OM: Order cancelled - Patient discharged Performed By: #### L 500.2500, L100.0100 ####[facility] [address] [place], [address] HCT Normal 40-54 [facility] Comment on above: Result Comment: Canc elled via OM: Order cancelled - Patient discharged Performed By: #### L 500.2500, L100.0100 ####[facility] [address] [place], [address] HGB Normal 13.0-16.5 [facility] Comment on above: Result Comment: Canc elled via OM: Order cancelled - Patient discharged Performed By: #### L 500.2500, L100.0100 ####[facility] [address] [place], [address] MCH Normal 27.0-32.0 [facility] Comment on above: Result Comment: Canc elled via OM: Order cancelled - Patient discharged Performed By: #### L 500.2500, L100.0100 ####[facility] [address] [place], [address] MCHC Normal 32-36 [facility] Comment on above: Result Comment: Canc elled via OM: Order cancelled - Patient discharged Performed By: #### L 500.2500, L100.0100 ####[facility] [address] [place], [address] MCV Normal 80-94 [facility] Comment on above: Result Comment: Canc elled via OM: Order cancelled - Patient discharged Performed By: #### L 500.2500, L100.0100 ####[facility] [address] [place], [address] NEUT% Normal 47-70 [facility] Comment on above: Result Comment: Canc elled via OM: Order cancelled - Patient discharged Performed By: #### L 500.2500, L100.0100 ####[facility] [address] [place], [address] PLT Normal 150-450 [facility] Comment on above: Result Comment: Canc elled via OM: Order cancelled - Patient discharged Performed By: #### L 500.2500, L100.0100 ####[facility] [address] [place], [address] RBC Normal 4.6-6.2 [facility] Comment on above: Result Comment: Canc elled via OM: Order cancelled - Patient discharged Performed By: #### L 500.2500, L100.0100 ####[facility] [address] [place], [address] RDW CV Normal 11.6-14.6 [facility] Comment on above: Result Comment: Canc elled via OM: Order cancelled - Patient discharged Performed By: #### L 500.2500, L100.0100 ####[facility] [address] [place], [address] RDW SD Normal 35.1-43.9 [facility] Comment on above: Result Comment: Canc elled via OM: Order cancelled - Patient discharged Performed By: #### L 500.2500, L100.0100 ####[facility] [address] [place], [address] WBC Normal 4.4-11.0 [facility] Comment on above: Result Comment: Canc elled via OM: Order cancelled - Patient discharged Performed By: #### L 500.2500, L100.0100 ####[facility] [address] [place], [address] Carbon dioxide, total [Moles /volume] in Central venous bloodOrdered By: Shaan Santos on 12-08-2024 CO2 [Moles/Vol] 21.2 mmol/L 21.0-32.0 [facility] Chloride assayOrdered By: Charlie Santos on 12-08-2024 Chloride [Moles/Vol] 95 mmol/L Low 98-108 [facility] Eosinophil percentageOrdered By: Shaan Santos on 12-08-2024 Eosinophils/100 WBC (Bld) 1.0 % 0-5 [facility] Erythrocyte distribution wid th ratioOrdered By: Shaan Santos on 12-08-2024 Erythrocyte distribution width (RBC) [Ratio] 13.4 % 11.6-14.6 [facility] Erythrocyte distribution wid th standard deviationOrdered By: Shaan Santos on 12-08-2024 Erythrocyte distribution width (RBC) [Ratio] 42.8 fl 35.1-43.9 [facility] Glomerular filtration rate ( GFR) estimation/1.73 sq m using serum, plasma, or whole bOrdered By: Shaan Santos on 12-08-2024 GFR/1.73 sq M.predicted among non-blacks MDRD (S/P/Bld) [Vol rate/Area] 22 mL/min/{1.73_m2} Low >60 [facility] deOrdered By: Alex Sanon on 12-08-2024 Glucose [Mass/Vol] 249 mg/dL High 74-106 [facility] Hematocrit Auto (Bld) [Volum e fraction]Ordered By: Shaan Santos on 12-08-2024 Hematocrit (Bld) [Volume fraction] 39.2 % Low 40-54 [facility] Hemoglobin measurementOrdere d By: Shaan Santos on 12-08-2024 Hemoglobin (Bld) [Mass/Vol] 12.9 g/dL Low 13.0-16.5 [facility] Immature granulocytes/100 WB C Auto (Bld)Ordered By: Shaan Santos on 12-08-2024 Immature granulocytes/100 WBC (Bld) 0.900 % 0.0-0.9 [facility] MCV (mean corpuscular volume ) determinationOrdered By: Shaan Santos on 12-08-2024 MCV (RBC) [Entitic vol] 87.7 fL 80-94 [facility] Mean corpuscular hemoglobin (MCH) determinationOrdered By: Shaan Santos on 12-08-2024 MCH (RBC) [Entitic mass] 28.9 pg 27.0-32.0 [facility] Monocyte percentageOrdered B y: Shaan Santos on 12-08-2024 Monocytes/100 WBC (Bld) 12.1 % High 0-10 [facility] Neutrophil percentageOrdered By: Shaan Santos on 12-08-2024 Neutrophils/100 WBC (Bld) 74.1 % High 47-70 [facility] Platelet countOrdered By: Charlie Santos on 12-08-2024 Platelets (Bld) [#/Vol] 178 10*3/uL 150-450 [facility] Potassium measurement (mass/ volume)Ordered By: Shaan Santos on 12-08-2024 Potassium (Unsp spec) [Mass/Vol] 3.4 mmol/L 3.3-5.1 [facility] RBC Auto (Bld) [#/Vol]Ordere d By: Shaan Santos on 12-08-2024 RBC (Bld) [#/Vol] 4.47 10*6/uL Low 4.6-6.2 [facility] Serum creatinine measurement (mass/volume)Ordered By: Shaan Santos on 12-08-2024 Creatinine [Mass/Vol] 2.84 mg/dL High 0.70-1.20 [facility] Serum glucose measurement (m ass/volume)Ordered By: Shaan Santos on 12-08-2024 Glucose [Mass/Vol] 178 mg/dL High 70-99 [facility] Serum or plasma calcium francine urement (mass/volume)Ordered By: Shaan Santos on 12-08-2024 Calcium [Mass/Vol] 9.6 mg/dL 7.6-11.0 [facility] Serum or plasma urea nitroge n measurement (mass/volume)Ordered By: Shaan Santos on 12-08-2024 Urea nitrogen [Mass/Vol] 44 mg/dL High 4-19 [facility] Sodium levelOrdered By: Shaan Santos on 12-08-2024 Sodium [Moles/Vol] 134 mmol/L 133-145 [facility] White blood cell (WBC) count Ordered By: Shaan Santos on 12-08-2024 WBC (Bld) [#/Vol] 10.5 10*3/uL 4.4-11.0 [facility] 12 Lead EKGon 12-07-2024 12 Lead EKG Normal [facility] Absolute lymphocyte countOrd ered By: Juli German on 12-07-2024 Lymphocytes Auto (Unsp spec) [#/Vol] 0.94 10*3/uL 0.83-4.51 [facility] Absolute lymphocyte countOrd ered By: Boyd Rock on 12-07-2024 Lymphocytes Auto (Unsp spec) [#/Vol] 1.19 10*3/uL 0.83-4.51 [facility] Anion gap in Serum or Plasma Ordered By: Juli German on 12-07-2024 Anion gap [Moles/Vol] 18 mmol/L High 09-14 [facility] Anion gap in Serum or Plasma Ordered By: Boyd Rock on 12-07-2024 Anion gap [Moles/Vol] 16 mmol/L High - [facility] Automated lymphocyte count a s percentage of total leukocytesOrdered By: Juli German on 12-07-2024 Lymphocytes/100 WBC Auto (Unsp spec) 7.9 % Low [facility] Automated lymphocyte count a s percentage of total leukocytesOrdered By: Boyd Rock on 12-07-2024 Lymphocytes/100 WBC Auto (Unsp spec) 11.4 % Low - [facility] BUN/creatinine ratioOrdered By: Juli German on 12-07-2024 Urea nitrogen/Creatinine [Mass ratio] 14.5 mg/mg 02-19 [facility] BUN/creatinine ratioOrdered By: Boyd Rock on 12-07-2024 Urea nitrogen/Creatinine [Mass ratio] 15.3 mg/mg 02-19 [facility] Basic Metabolic Profile (BMP )on 12-07-2024 BUN/CRE 14.5 RATIO Normal 10-20 [facility] Comment on above: Performed By: #### L 100.0100, L501.4021, L500.2500 ####[facility] [address] [place], [address] Calcium [Mass/Vol] 9.5 mg/dL Normal 7.6-11.0 [facility] Comment on above: Performed By: #### L 100.0100, L501.4021, L500.2500 ####[facility] [address] [place], [address] Chloride [Moles/Vol] 94 mmol/L Low 98-108 [facility] Comment on above: Performed By: #### L 100.0100, L501.4021, L500.2500 ####[facility] [address] [place], [address] CO2 [Moles/Vol] 20.9 mmol/L Low 21.0-32.0 [facility] Comment on above: Performed By: #### L 100.0100, L501.4021, L500.2500 ####[facility] [address] [place], [address] Creatinine [Mass/Vol] 2.76 mg/dL High 0.70-1.20 [facility] Comment on above: Performed By: #### L 100.0100, L501.4021, L500.2500 ####[facility] [address] [place], [address] ECRCL 25.62 ml/min Low 50-250 [facility] Comment on above: Performed By: #### L 100.0100, L501.4021, L500.2500 ####[facility] [address] [place], [address] GAP 18 High 5-15 [facility] Comment on above: Performed By: #### L 100.0100, L501.4021, L500.2500 ####[facility] [address] [place], [address] GFR/1.73 sq M.predicted among non-blacks MDRD (S/P/Bld) [Vol rate/Area] 23 mL/min/{1.73_m2} Low >60 [facility] Comment on above: Result Comment: mL/m in/1.73m2 CKD-EPI Creatinine Equation (2020) Performed By: #### L 100.0100, L501.4021, L500.2500 ####[facility] [address] [place], [address] Glucose [Mass/Vol] 209 mg/dL High 70-99 [facility] Comment on above: Performed By: #### L 100.0100, L501.4021, L500.2500 ####[facility] [address] [place], [address] Potassium [Moles/Vol] 4.1 mmol/L Normal 3.3-5.1 [facility] Comment on above: Performed By: #### L 100.0100, L501.4021, L500.2500 ####[facility] [address] [place], [address] Sodium [Moles/Vol] 132 mmol/L Low 133-145 [facility] Comment on above: Performed By: #### L 100.0100, L501.4021, L500.2500 ####[facility] [address] [place], [address] Urea nitrogen [Mass/Vol] 40 mg/dL High 4-19 [facility] Comment on above: Performed By: #### L 100.0100, L501.4021, L500.2500 ####[facility] [address] [place], [address] BUN Normal 4-19 [facility] Comment on above: Result Comment: Canc elled via OM: Order cancelled - Patient discharged Performed By: #### L 500.2500, L100.0100 ####[facility] [address] [place], [address] BUN/CRE Normal 10-20 [facility] Comment on above: Result Comment: Canc elled via OM: Order cancelled - Patient discharged Performed By: #### L 500.2500, L100.0100 ####[facility] [address] [place], [address] Calcium Normal 7.6-11.0 [facility] Comment on above: Result Comment: Canc elled via OM: Order cancelled - Patient discharged Performed By: #### L 500.2500, L100.0100 ####[facility] [address] [place], [address] CL Normal 98-108 [facility] Comment on above: Result Comment: Canc elled via OM: Order cancelled - Patient discharged Performed By: #### L 500.2500, L100.0100 ####[facility] [address] [place], [address] CO2 Normal 21.0-32.0 [facility] Comment on above: Result Comment: Canc elled via OM: Order cancelled - Patient discharged Performed By: #### L 500.2500, L100.0100 ####[facility] [address] [place], [address] CREAT,SERUM Normal 0.70-1.20 [facility] Comment on above: Result Comment: Canc elled via OM: Order cancelled - Patient discharged Performed By: #### L 500.2500, L100.0100 ####[facility] [address] [place], [address] eGFR Normal >60 [facility] Comment on above: Result Comment: Canc elled via OM: Order cancelled - Patient discharged Performed By: #### L 500.2500, L100.0100 ####[facility] [address] [place], [address] GAP Normal 5-15 [facility] Comment on above: Result Comment: Canc elled via OM: Order cancelled - Patient discharged Performed By: #### L 500.2500, L100.0100 ####[facility] [address] [place], [address] GLU Normal 70-99 [facility] Comment on above: Result Comment: Canc elled via OM: Order cancelled - Patient discharged Performed By: #### L 500.2500, L100.0100 ####[facility] [address] [place], [address] Potassium Normal 3.3-5.1 [facility] Comment on above: Result Comment: Canc elled via OM: Order cancelled - Patient discharged Performed By: #### L 500.2500, L100.0100 ####[facility] [address] [place], [address] Basic Metabolic Profile (BMP) Normal 133-145 [facility] Comment on above: Result Comment: Canc elled via OM: Order cancelled - Patient discharged Performed By: #### L 500.2500, L100.0100 ####[facility] [address] [place], [address] Basophil percentageOrdered B y: Julijose German on 12-07-2024 Basophils/100 WBC (Bld) 0.3 % 0-1 [facility] Basophil percentageOrdered B y: Boyd Rock on 12-07-2024 Basophils/100 WBC (Bld) 0.2 % 0-1 [facility] Bedside Glucoseon 12-07-2024 FINGERSTICK GLU 187 mg/dL High 74-106 [facility] Comment on above: Result Comment: WILDA BARROSO OF PATIENT CARE PER NURSING PROTOCOL Performed By: #### L 501.080 ####[facility] [address] [place], [address] Bilirubin, totalOrdered By: Boyd Rock on 12-07-2024 Bilirubin [Mass/Vol] 1.48 mg/dL High 0.00-1.30 [facility] CBC W/Diff, Automatedon Absolute Lymph 0.94 X10 3/uL Normal 0.83-4.51 [facility] Comment on above: Performed By: #### L 100.0100, L501.4021, L500.2500 ####[facility] [address] [place], [address] Absolute Neut 9.4 X10 3/uL High 2.0-7.7 [facility] Comment on above: Performed By: #### L 100.0100, L501.4021, L500.2500 ####[facility] [address] [place], [address] Basophils/100 WBC (Bld) 0.3 % Normal 0-1 [facility] Comment on above: Performed By: #### L 100.0100, L501.4021, L500.2500 ####[facility] [address] [place], [address] Eosinophils/100 WBC (Bld) 0.6 % Normal 0-5 [facility] Comment on above: Performed By: #### L 100.0100, L501.4021, L500.2500 ####[facility] [address] [place], [address] Erythrocyte distribution width (RBC) [Ratio] 13.4 % Normal 11.6-14.6 [facility] Comment on above: Performed By: #### L 100.0100, L501.4021, L500.2500 ####[facility] [address] [place], [address] Hematocrit (Bld) [Volume fraction] 39.1 % Low 40-54 [facility] Comment on above: Performed By: #### L 100.0100, L501.4021, L500.2500 ####[facility] [address] [place], [address] Hemoglobin (Bld) [Mass/Vol] 13.3 g/dL Normal 13.0-16.5 [facility] Comment on above: Performed By: #### L 100.0100, L501.4021, L500.2500 ####[facility] [address] [place], [address] IG% 0.700 Normal 0.0-0.9 [facility] Comment on above: Result Comment: IG% - Immature Granulocytes (promyelocytes, myelocytes andmetamyelocytes) > 1% indicates that a LEFT SHIFT is Present. Performed By: #### L 100.0100, L501.4021, L500.2500 ####[facility] [address] [place], [address] Lymphocytes/100 WBC (Bld) 7.9 % Low 19-41 [facility] Comment on above: Performed By: #### L 100.0100, L501.4021, L500.2500 ####[facility] [address] [place], [address] MCH (RBC) [Entitic mass] 29.3 pg Normal 27.0-32.0 [facility] Comment on above: Performed By: #### L 100.0100, L501.4021, L500.2500 ####[facility] [address] [place], [address] MCHC (RBC) [Mass/Vol] 34.0 g/dL Normal 32-36 [facility] Comment on above: Performed By: #### L 100.0100, L501.4021, L500.2500 ####[facility] [address] [place], [address] MCV (RBC) [Entitic vol] 86.1 fL Normal 80-94 [facility] Comment on above: Performed By: #### L 100.0100, L501.4021, L500.2500 ####[facility] [address] [place], [address] Monocytes/100 WBC (Bld) 11.5 % High 0-10 [facility] Comment on above: Performed By: #### L 100.0100, L501.4021, L500.2500 ####[facility] [address] [place], [address] Neutrophils/100 WBC (Bld) 79.0 % High 47-70 [facility] Comment on above: Performed By: #### L 100.0100, L501.4021, L500.2500 ####[facility] [address] [place], [address] Nucleated RBC (Bld) [#/Vol] 0 10*3/uL Normal 0-5 [facility] Comment on above: Performed By: #### L 100.0100, L501.4021, L500.2500 ####[facility] [address] [place], [address] Platelet mean volume (Bld) [Entitic vol] 13.0 fL High 6.2-12.0 [facility] Comment on above: Performed By: #### L 100.0100, L501.4021, L500.2500 ####[facility] [address] [place], [address] Platelets (Bld) [#/Vol] 190 10*3/uL Normal 150-450 [facility] Comment on above: Performed By: #### L 100.0100, L501.4021, L500.2500 ####[facility] [address] [place], [address] RBC (Bld) [#/Vol] 4.54 10*6/uL Low 4.6-6.2 [facility] Comment on above: Performed By: #### L 100.0100, L501.4021, L500.2500 ####[facility] [address] [place], [address] RDW SD 41.4 fl Normal 35.1-43.9 [facility] Comment on above: Performed By: #### L 100.0100, L501.4021, L500.2500 ####[facility] [address] [place], [address] WBC (Bld) [#/Vol] 11.9 10*3/uL High 4.4-11.0 [facility] Comment on above: Performed By: #### L 100.0100, L501.4021, L500.2500 ####[facility] [address] [place], [address] Absolute Neut Normal 2.0-7.7 [facility] Comment on above: Result Comment: Canc elled via OM: Order cancelled - Patient discharged Performed By: #### L 500.2500, L100.0100 ####[facility] [address] [place], [address] HCT Normal 40-54 [facility] Comment on above: Result Comment: Canc elled via OM: Order cancelled - Patient discharged Performed By: #### L 500.2500, L100.0100 ####[facility] [address] [place], [address] HGB Normal 13.0-16.5 [facility] Comment on above: Result Comment: Canc elled via OM: Order cancelled - Patient discharged Performed By: #### L 500.2500, L100.0100 ####[facility] [address] [place], [address] MCH Normal 27.0-32.0 [facility] Comment on above: Result Comment: Canc elled via OM: Order cancelled - Patient discharged Performed By: #### L 500.2500, L100.0100 ####[facility] [address] [place] [place], [address] MCHC Normal 32-36 [facility] Comment on above: Result Comment: Canc elled via OM: Order cancelled - Patient discharged Performed By: #### L 500.2500, L100.0100 ####[facility] [address] [place], [address] MCV Normal 80-94 [facility] Comment on above: Result Comment: Canc elled via OM: Order cancelled - Patient discharged Performed By: #### L 500.2500, L100.0100 ####[facility] [address] [place], [address] NEUT% Normal 47-70 [facility] Comment on above: Result Comment: Canc elled via OM: Order cancelled - Patient discharged Performed By: #### L 500.2500, L100.0100 ####[facility] [address] [place], [address] PLT Normal 150-450 [facility] Comment on above: Result Comment: Canc elled via OM: Order cancelled - Patient discharged Performed By: #### L 500.2500, L100.0100 ####[facility] [address] [place], [address] RBC Normal 4.6-6.2 [facility] Comment on above: Result Comment: Canc elled via OM: Order cancelled - Patient discharged Performed By: #### L 500.2500, L100.0100 ####[facility] [address] [place], [address] RDW CV Normal 11.6-14.6 [facility] Comment on above: Result Comment: Canc elled via OM: Order cancelled - Patient discharged Performed By: #### L 500.2500, L100.0100 ####[facility] [address] [place], [address] RDW SD Normal 35.1-43.9 [facility] Comment on above: Result Comment: Canc elled via OM: Order cancelled - Patient discharged Performed By: #### L 500.2500, L100.0100 ####[facility] [address] [place], [address] WBC Normal 4.4-11.0 [facility] Comment on above: Result Comment: Canc elled via OM: Order cancelled - Patient discharged Performed By: #### L 500.2500, L100.0100 ####[facility] [address] [place], [address] Calculated very low density lipoprotein (VLDL) cholesterol measurementOrdered By: Boyd Rock on 12-07-2024 Calculated very low density lipoprotein (VLDL) cholesterol measurement 54 mg/dL High 5-40 [facility] Carbon dioxide, total [Moles /volume] in Central venous bloodOrdered By: Juli German on 12-07-2024 CO2 [Moles/Vol] 20.9 mmol/L Low 21.0-32.0 [facility] Carbon dioxide, total [Moles /volume] in Central venous bloodOrdered By: Boyd Rock on 12-07-2024 CO2 [Moles/Vol] 23.3 mmol/L 21.0-32.0 [facility] Chest PA and Lateralon 12-07 Chest PA and Lateral Normal [facility] Chloride assayOrdered By: Miri German on 12-07-2024 Chloride [Moles/Vol] 94 mmol/L Low 98-108 [facility] Chloride assayOrdered By: Susanna Rock on 12-07-2024 Chloride [Moles/Vol] 96 mmol/L Low 98-108 [facility] D-Dimer Quantitative (DVT/PE )on 12-07-2024 D-DIMER QUANT 1.61 FEU/ug/m Invalid Interpretation Code 0.27-0.49 [facility] Comment on above: Result Comment: D-Di ajit ELEVATED (>0.49): Additional studies and clinicalassessments are indicated to conclude diagnosis of:Deep Vein Thrombosis (DVT) or Pulmonary Embolism (PE)CRITICAL VALUE CALLED TO MARIA DEL ROSARIO JOHNSON (ER)12/07/24 1446 Fletcher Cherry.RESULTS READ BACK BY SAME. Performed By: #### L 300.8000 ####[facility] [address] [place], [address] Emergency Department Summary on 12-07-2024 Emergency Department Summary Normal [facility] Eosinophil percentageOrdered By: Juli German on 12-07-2024 Eosinophils/100 WBC (Bld) 0.6 % 0-5 [facility] Eosinophil percentageOrdered By: Boyd Rock on 12-07-2024 Eosinophils/100 WBC (Bld) 1.3 % 0-5 [facility] Erythrocyte distribution wid th ratioOrdered By: Juli German on 12-07-2024 Erythrocyte distribution width (RBC) [Ratio] 13.4 % 11.6-14.6 [facility] Erythrocyte distribution wid th ratioOrdered By: Boyd Videse on 12-07-2024 Erythrocyte distribution width (RBC) [Ratio] 13.6 % 11.6-14.6 [facility] Erythrocyte distribution wid th standard deviationOrdered By: Juli German on 12-07-2024 Erythrocyte distribution width (RBC) [Ratio] 41.4 fl 35.1-43.9 [facility] Erythrocyte distribution wid th standard deviationOrdered By: Boyd Videse on 12-07-2024 Erythrocyte distribution width (RBC) [Ratio] 43.8 fl 35.1-43.9 [facility] Glomerular filtration rate ( GFR) estimation/1.73 sq m using serum, plasma, or whole bOrdered By: Juli German on 12-07-2024 GFR/1.73 sq M.predicted among non-blacks MDRD (S/P/Bld) [Vol rate/Area] 23 mL/min/{1.73_m2} Low >60 [facility] Glomerular filtration rate ( GFR) estimation/1.73 sq m using serum, plasma, or whole bOrdered By: Boyd Rock on 12-07-2024 GFR/1.73 sq M.predicted among non-blacks MDRD (S/P/Bld) [Vol rate/Area] 25 mL/min/{1.73_m2} Low >60 [facility] H AND P Exam - Hospital[place] 12-07-2024 H&P Exam - Hospitalist Normal [facility] Hematocrit Auto (Bld) [Volum e fraction]Ordered By: Juli German on 12-07-2024 Hematocrit (Bld) [Volume fraction] 39.1 % Low 40-54 [facility] Hematocrit Auto (Bld) [Volum e fraction]Ordered By: Boyd Rock on 12-07-2024 Hematocrit (Bld) [Volume fraction] 37.8 % Low 40-54 [facility] Hemoglobin measurementOrdere d By: Juli German on 12-07-2024 Hemoglobin (Bld) [Mass/Vol] 13.3 g/dL 13.0-16.5 [facility] Hemoglobin measurementOrdere d By: Boyd Rock on 12-07-2024 Hemoglobin (Bld) [Mass/Vol] 12.4 g/dL Low 13.0-16.5 [facility] Immature granulocytes/100 WB C Auto (Bld)Ordered By: Juli German on 12-07-2024 Immature granulocytes/100 WBC (Bld) 0.700 % 0.0-0.9 [facility] Immature granulocytes/100 WB C Auto (Bld)Ordered By: Boyd Rock on 12-07-2024 Immature granulocytes/100 WBC (Bld) 0.600 % 0.0-0.9 [facility] L501.4021on 12-07-2024 Trop T High Sen 7122 ng/L Invalid Interpretation Code <=22 [facility] Comment on above: Result Comment: Crit ical Result(s) Called at 1153: by:?? MONICA RODRIGUEZ. Results read back by same. Performed By: #### L 100.0100, L501.4021, L500.2500 ####[facility] [address] [place], [place], [id number] LDL calc ser/plasOrdered By: Boyd Rock on 12-07-2024 Cholesterol in LDL [Mass/Vol] 65 mg/dL [facility] Lung Scan Vent/Perfon 2024 Lung Scan Vent/Perf Normal [facility] MCV (mean corpuscular volume ) determinationOrdered By: Juli German on 12-07-2024 MCV (RBC) [Entitic vol] 86.1 fL 80-94 [facility] MCV (mean corpuscular volume ) determinationOrdered By: Boyd Rock on 12-07-2024 MCV (RBC) [Entitic vol] 87.9 fL 80-94 [facility] Magnesiumon 12-07-2024 Magnesium [Mass/Vol] 2.4 mg/dL High 1.5-2.2 [facility] Comment on above: Performed By: #### L 501.5200 ####[facility] [address] [place], [place], [id number] Magnesium measurement (mass/ volume)Ordered By: Juli German on 12-07-2024 Magnesium (Unsp spec) [Mass/Vol] 2.4 mg/dL High 1.5-2.2 [facility] Mean corpuscular hemoglobin (MCH) determinationOrdered By: Juli German on 12-07-2024 MCH (RBC) [Entitic mass] 29.3 pg 27.0-32.0 [facility] Mean corpuscular hemoglobin (MCH) determinationOrdered By: Boyd Rock on 12-07-2024 MCH (RBC) [Entitic mass] 28.8 pg 27.0-32.0 [facility] Monocyte percentageOrdered B y: Juli German on 12-07-2024 Monocytes/100 WBC (Bld) 11.5 % High 0-10 [facility] Monocyte percentageOrdered B y: Boyd Rock on 12-07-2024 Monocytes/100 WBC (Bld) 11.7 % High 0-10 [facility] Natriuretic peptide.B prohor efrem N-Terminal [Mass/volume] in Serum or PlasmaOrdered By: Tor Irizarry on 12-07-2024 Natriuretic peptide.B prohormone N-Terminal [Mass/Vol] 2037 pg/mL High <1800 [facility] Neutrophil percentageOrdered By: Juli German on 12-07-2024 Neutrophils/100 WBC (Bld) 79.0 % High 47-70 [facility] Neutrophil percentageOrdered By: Boyd Rock on 12-07-2024 Neutrophils/100 WBC (Bld) 74.8 % High 47-70 [facility] No Panel InformationOrdered By: Boyd Rock on 12-07-2024 32 U/L <38 [facility] Platelet countOrdered By: Miri German on 12-07-2024 Platelets (Bld) [#/Vol] 190 10*3/uL 150-450 [facility] Platelet countOrdered By: Susanna Rock on 12-07-2024 Platelets (Bld) [#/Vol] 169 10*3/uL 150-450 [facility] Potassium measurement (mass/ volume)Ordered By: Juli German on 12-07-2024 Potassium (Unsp spec) [Mass/Vol] 4.1 mmol/L 3.3-5.1 [facility] Potassium measurement (mass/ volume)Ordered By: Boyd Rock on 12-07-2024 Potassium (Unsp spec) [Mass/Vol] 3.5 mmol/L 3.3-5.1 [facility] Pro- Brain NATRIURETIC PEPTI Sharon 12-07-2024 Natriuretic peptide B (Bld) [Mass/Vol] 2037 pg/mL High <=1800 [facility] Comment on above: Result Comment: Hear t Failure Unlikely: < 300 pg/mLHeart Failure Likely< 50 Years: > 450 pg/mL50-75 Years: > 900 pg/mL>75 Years: > 1800 pg/mL Performed By: #### L 503.7505 ####[facility] [address] [place], [address] RBC Auto (Bld) [#/Vol]Ordere d By: Juli German on 12-07-2024 RBC (Bld) [#/Vol] 4.54 10*6/uL Low 4.6-6.2 [facility] RBC Auto (Bld) [#/Vol]Ordere d By: Boyd Rock on 12-07-2024 RBC (Bld) [#/Vol] 4.30 10*6/uL Low 4.6-6.2 [facility] Serum creatinine measurement (mass/volume)Ordered By: Juli German on 12-07-2024 Creatinine [Mass/Vol] 2.76 mg/dL High 0.70-1.20 [facility] Serum creatinine measurement (mass/volume)Ordered By: Boyd Rock on 12-07-2024 Creatinine [Mass/Vol] 2.56 mg/dL High 0.70-1.20 [facility] Serum globulin measurementOr dered By: Boyd Rock on 12-07-2024 Globulin (S) [Mass/Vol] 3.5 g/dL 2.2-4.2 [facility] Serum glucose measurement (m ass/volume)Ordered By: Juli German on 12-07-2024 Glucose [Mass/Vol] 209 mg/dL High 70-99 [facility] Serum glucose measurement (m ass/volume)Ordered By: Boyd Rock on 12-07-2024 Glucose [Mass/Vol] 156 mg/dL High 70-99 [facility] Serum or plasma alanine guerrero otransferase (ALT) measurementOrdered By: Boyd Rock on 12-07-2024 ALT [Catalytic activity/Vol] 28 U/L <47 [facility] Serum or plasma albumin francine urement (mass/volume)Ordered By: Boyd Rock on 12-07-2024 Albumin [Mass/Vol] 4.1 g/dL 3.4-4.8 [facility] Serum or plasma albumin/glob ulin mass ratioOrdered By: Boyd Rock on 12-07-2024 Albumin/Globulin [Mass ratio] 1.2 {ratio} 0.9-2.4 [facility] Serum or plasma alkaline bell sphatase measurementOrdered By: Boyd Rock on 12-07-2024 ALP [Catalytic activity/Vol] 122 U/L 40-129 [facility] Serum or plasma calcium francine urement (mass/volume)Ordered By: Juli German on 12-07-2024 Calcium [Mass/Vol] 9.5 mg/dL 7.6-11.0 [facility] Serum or plasma calcium francine urement (mass/volume)Ordered By: Boyd Rock on 12-07-2024 Calcium [Mass/Vol] 9.4 mg/dL 7.6-11.0 [facility] Serum or plasma cholesterol in HDL measurement (mass/volume)Ordered By: Boyd Rock on 12-07-2024 Cholesterol in HDL [Mass/Vol] 36 mg/dL Low >40 [facility] Serum or plasma cholesterol measurement (mass/volume)Ordered By: Boyd Rock on 12-07-2024 Cholesterol [Mass/Vol] 154 mg/dL <201 [facility] Serum or plasma urea nitroge n measurement (mass/volume)Ordered By: Juli German on 12-07-2024 Urea nitrogen [Mass/Vol] 40 mg/dL High 4-19 [facility] Serum or plasma urea nitroge n measurement (mass/volume)Ordered By: Boyd Rock on 12-07-2024 Urea nitrogen [Mass/Vol] 39 mg/dL High -19 [facility] Sodium levelOrdered By: Juli German on 12-07-2024 Sodium [Moles/Vol] 132 mmol/L Low 133-145 [facility] Sodium levelOrdered By: Lupe Rock on 12-07-2024 Sodium [Moles/Vol] 135 mmol/L 133-145 [facility] TSH DL <= 0.005 mIU/L QnOrde red By: Boyd Rock on 12-07-2024 TSH Qn 9.200 uIU/mL High 0.300-4.20 0 [facility] Total proteinOrdered By: Anastacio Rock on 12-07-2024 Protein [Mass/Vol] 7.5 g/dL 5.9-8.4 [facility] Troponin T HS 2 HRon 025 Trop T High Sen 6442 ng/L Invalid Interpretation Code <=22 [facility] Comment on above: Result Comment: Crit ical Result(s) Called at 1336: by: MONICA PREALTA.??Results read back by same. Performed By: #### L 499.0042 ####[facility] [address] [place], [place], [phone] Troponin T HS 4 HRon 025 Trop T High Sen 6556 ng/L Invalid Interpretation Code <=22 [facility] Comment on above: Result Comment: Crit ical Result(s) Called at: 1740 by:??MOISE BECKFORD Results read back by same. Performed By: #### L 499.0043 ####[facility] [address] [place], [place], [address] Troponin T.cardiac [Mass/vol ume] in Serum or Plasma by High sensitivity methodOrdered By: Juli German on 12-07-2024 Troponin T.cardiac High sensitivity method [Mass/Vol] 6556 ng/L High <22 [facility] Troponin T.cardiac High sensitivity method [Mass/Vol] 6442 ng/L High <22 [facility] Troponin T.cardiac High sensitivity method [Mass/Vol] 7122 ng/L High <22 [facility] White blood cell (WBC) count Ordered By: Juli German on 12-07-2024 WBC (Bld) [#/Vol] 11.9 10*3/uL High 4.4-11.0 [facility] White blood cell (WBC) count Ordered By: Boyd Rock on 12-07-2024 WBC (Bld) [#/Vol] 10.5 10*3/uL 4.4-11.0 [facility] 12 Lead EKGon 12-06-2024 12 Lead EKG Normal [facility] Absolute lymphocyte countOrd ered By: Alex Sanon on 12-06-2024 Lymphocytes Auto (Unsp spec) [#/Vol] 1.09 10*3/uL 0.83-4.51 [facility] Anion gap in Serum or Plasma Ordered By: Marcin Araujo on 12-06-2024 Anion gap [Moles/Vol] 17 mmol/L High 5-15 [facility] Automated lymphocyte count a s percentage of total leukocytesOrdered By: Alex Sanon on 12-06-2024 Lymphocytes/100 WBC Auto (Unsp spec) 11.6 % Low 19-41 [facility] BUN/creatinine ratioOrdered By: Marcin Araujo on 12-06-2024 Urea nitrogen/Creatinine [Mass ratio] 16.1 mg/mg 10-20 [facility] Basic Metabolic Profile (BMP )on 12-06-2024 BUN/CRE 16.1 RATIO Normal -20 [facility] Comment on above: Performed By: #### L 500.2500 ####[facility] [address] [place], [address] Calcium [Mass/Vol] 9.2 mg/dL Normal 7.6-11.0 [facility] Comment on above: Performed By: #### L 500.2500 ####[facility] [address] [place], [address] Chloride [Moles/Vol] 96 mmol/L Low 98-108 [facility] Comment on above: Performed By: #### L 500.2500 ####[facility] [address] [place], [address] CO2 [Moles/Vol] 20.6 mmol/L Low 21.0-32.0 [facility] Comment on above: Performed By: #### L 500.2500 ####[facility] [address] [place], [address] Creatinine [Mass/Vol] 2.46 mg/dL High 0.70-1.20 [facility] Comment on above: Performed By: #### L 500.2500 ####[facility] [address] [place], [address] ECRCL 28.56 ml/min Low 50-250 [facility] Comment on above: Performed By: #### L 500.2500 ####[facility] [address] [place], [address] GAP 17 High 5-15 [facility] Comment on above: Performed By: #### L 500.2500 ####[facility] [address] [place], [address] GFR/1.73 sq M.predicted among non-blacks MDRD (S/P/Bld) [Vol rate/Area] 26 mL/min/{1.73_m2} Low >60 [facility] Comment on above: Result Comment: mL/m in/1.73m2 CKD-EPI Creatinine Equation (2020) Performed By: #### L 500.2500 ####[facility] [address] [place], [address] Glucose [Mass/Vol] 186 mg/dL High 70-99 [facility] Comment on above: Performed By: #### L 500.2500 ####[facility] [address] [place], [address] Potassium [Moles/Vol] 4.1 mmol/L Normal 3.3-5.1 [facility] Comment on above: Performed By: #### L 500.2500 ####[facility] [address] [place], [address] Sodium [Moles/Vol] 133 mmol/L Normal 133-145 [facility] Comment on above: Performed By: #### L 500.2500 ####[facility] [address] [place], [address] Urea nitrogen [Mass/Vol] 40 mg/dL High 4-19 [facility] Comment on above: Performed By: #### L 500.2500 ####[facility] [address] [place], [address] BUN/CRE 17.0 RATIO Normal 10-20 [facility] Comment on above: Performed By: #### L 501.2300, L501.5200, L500.2500, L100.0100 ####[facility] [address] [place], [address] Calcium [Mass/Vol] 9.0 mg/dL Normal 7.6-11.0 [facility] Comment on above: Performed By: #### L 501.2300, L501.5200, L500.2500, L100.0100 ####[facility] [address] [place], [address] Chloride [Moles/Vol] 97 mmol/L Low 98-108 [facility] Comment on above: Performed By: #### L 501.2300, L501.5200, L500.2500, L100.0100 ####[facility] [address] [place], [address] CO2 [Moles/Vol] 21.9 mmol/L Normal 21.0-32.0 [facility] Comment on above: Performed By: #### L 501.2300, L501.5200, L500.2500, L100.0100 ####[facility] [address] [place], [address] Creatinine [Mass/Vol] 2.53 mg/dL High 0.70-1.20 [facility] Comment on above: Performed By: #### L 501.2300, L501.5200, L500.2500, L100.0100 ####[facility] [address] [place], [address] ECRCL 1.34 ml/min Invalid Interpretation Code 50-250 [facility] Comment on above: Performed By: #### L 501.2300, L501.5200, L500.2500, L100.0100 ####[facility] [address] [place], [address] GAP 17 High 5-15 [facility] Comment on above: Performed By: #### L 501.2300, L501.5200, L500.2500, L100.0100 ####[facility] [address] [place], [address] GFR/1.73 sq M.predicted among non-blacks MDRD (S/P/Bld) [Vol rate/Area] 25 mL/min/{1.73_m2} Low >60 [facility] Comment on above: Result Comment: mL/m in/1.73m2 CKD-EPI Creatinine Equation (2020) Performed By: #### L 501.2300, L501.5200, L500.2500, L100.0100 ####[facility] [address] [place], [address] Glucose [Mass/Vol] 161 mg/dL High 70-99 [facility] Comment on above: Performed By: #### L 501.2300, L501.5200, L500.2500, L100.0100 ####[facility] [address] [place], [address] Potassium [Moles/Vol] 3.5 mmol/L Normal 3.3-5.1 [facility] Comment on above: Performed By: #### L 501.2300, L501.5200, L500.2500, L100.0100 ####[facility] [address] [place], [address] Sodium [Moles/Vol] 135 mmol/L Normal 133-145 [facility] Comment on above: Performed By: #### L 501.2300, L501.5200, L500.2500, L100.0100 ####[facility] [address] [place], [address] Urea nitrogen [Mass/Vol] 43 mg/dL High 4-19 [facility] Comment on above: Performed By: #### L 501.2300, L501.5200, L500.2500, L100.0100 ####[facility] [address] [place], [address] Basophil percentageOrdered B y: Alex Sanon on 12-06-2024 Basophils/100 WBC (Bld) 0.2 % 0-1 [facility] Bedside Glucoseon 12-06-2024 FINGERSTICK GLU 197 mg/dL High 74-106 [facility] Comment on above: Result Comment: WILDA GEMENT OF PATIENT CARE PER NURSING PROTOCOL Performed By: #### L 501.080 ####[facility] [address] [place], [address] FINGERSTICK GLU 165 mg/dL High 74-106 [facility] Comment on above: Result Comment: WILDA GEMENT OF PATIENT CARE PER NURSING PROTOCOL Performed By: #### L 501.080 ####[facility] [address] [place], [address] CBC W/Diff, Automatedon Absolute Lymph 1.09 X10 3/uL Normal 0.83-4.51 [facility] Comment on above: Performed By: #### L 501.2300, L501.5200, L500.2500, L100.0100 ####[facility] [address] [place], [address] Absolute Neut 6.8 X10 3/uL Normal 2.0-7.7 [facility] Comment on above: Performed By: #### L 501.2300, L501.5200, L500.2500, L100.0100 ####[facility] [address] [place], [address] Basophils/100 WBC (Bld) 0.2 % Normal 0-1 [facility] Comment on above: Performed By: #### L 501.2300, L501.5200, L500.2500, L100.0100 ####[facility] [address] [place], [address] Eosinophils/100 WBC (Bld) 2.0 % Normal 0-5 [facility] Comment on above: Performed By: #### L 501.2300, L501.5200, L500.2500, L100.0100 ####[facility] [address] [place], [address] Erythrocyte distribution width (RBC) [Ratio] 13.6 % Normal 11.6-14.6 [facility] Comment on above: Performed By: #### L 501.2300, L501.5200, L500.2500, L100.0100 ####[facility] [address] [place], [address] Hematocrit (Bld) [Volume fraction] 35.0 % Low 40-54 [facility] Comment on above: Performed By: #### L 501.2300, L501.5200, L500.2500, L100.0100 ####[facility] [address] [place], [address] Hemoglobin (Bld) [Mass/Vol] 11.6 g/dL Low 13.0-16.5 [facility] Comment on above: Performed By: #### L 501.2300, L501.5200, L500.2500, L100.0100 ####[facility] [address] [place], [address] IG% 0.600 Normal 0.0-0.9 [facility] Comment on above: Result Comment: IG% - Immature Granulocytes (promyelocytes, myelocytes andmetamyelocytes) > 1% indicates that a LEFT SHIFT is Present. Performed By: #### L 501.2300, L501.5200, L500.2500, L100.0100 ####[facility] [address] [place], [address] Lymphocytes/100 WBC (Bld) 11.6 % Low 19-41 [facility] Comment on above: Performed By: #### L 501.2300, L501.5200, L500.2500, L100.0100 ####[facility] [address] [place], [address] MCH (RBC) [Entitic mass] 29.1 pg Normal 27.0-32.0 [facility] Comment on above: Performed By: #### L 501.2300, L501.5200, L500.2500, L100.0100 ####[facility] [address] [place], [address] MCHC (RBC) [Mass/Vol] 33.1 g/dL Normal 32-36 [facility] Comment on above: Performed By: #### L 501.2300, L501.5200, L500.2500, L100.0100 ####[facility] [address] [place], [address] MCV (RBC) [Entitic vol] 87.9 fL Normal 80-94 [facility] Comment on above: Performed By: #### L 501.2300, L501.5200, L500.2500, L100.0100 ####[facility] [address] [place], [address] Monocytes/100 WBC (Bld) 12.9 % High 0-10 [facility] Comment on above: Performed By: #### L 501.2300, L501.5200, L500.2500, L100.0100 ####[facility] [address] [place], [address] Neutrophils/100 WBC (Bld) 72.7 % High 47-70 [facility] Comment on above: Performed By: #### L 501.2300, L501.5200, L500.2500, L100.0100 ####[facility] [address] [place], [address] Nucleated RBC (Bld) [#/Vol] 0 10*3/uL Normal 0-5 [facility] Comment on above: Performed By: #### L 501.2300, L501.5200, L500.2500, L100.0100 ####[facility] [address] [place], [address] Platelet mean volume (Bld) [Entitic vol] 12.9 fL High 6.2-12.0 [facility] Comment on above: Performed By: #### L 501.2300, L501.5200, L500.2500, L100.0100 ####[facility] [address] [place], [address] Platelets (Bld) [#/Vol] 140 10*3/uL Low 150-450 [facility] Comment on above: Performed By: #### L 501.2300, L501.5200, L500.2500, L100.0100 ####[facility] [address] [place], [address] RBC (Bld) [#/Vol] 3.98 10*6/uL Low 4.6-6.2 [facility] Comment on above: Performed By: #### L 501.2300, L501.5200, L500.2500, L100.0100 ####[facility] [address] [place], [address] RDW SD 44.0 fl High 35.1-43.9 [facility] Comment on above: Performed By: #### L 501.2300, L501.5200, L500.2500, L100.0100 ####[facility] [address] [place], [address] WBC (Bld) [#/Vol] 9.4 10*3/uL Normal 4.4-11.0 [facility] Comment on above: Performed By: #### L 501.2300, L501.5200, L500.2500, L100.0100 ####[facility] [address] [place], [address] Carbon dioxide, total [Moles /volume] in Central venous bloodOrdered By: Marcin Araujo on 12-06-2024 CO2 [Moles/Vol] 20.6 mmol/L Low 21.0-32.0 [facility] Chloride assayOrdered By: Russell Araujo on 12-06-2024 Chloride [Moles/Vol] 96 mmol/L Low 98-108 [facility] Electrocardiogram reportOrde red By: Marcin Araujo on 12-06-2024 EKG study [facility] Work Phone: [phone] EKG study [facility] Work Phone: [phone] Eosinophil percentageOrdered By: Alex Sanon on 12-06-2024 Eosinophils/100 WBC (Bld) 2.0 % 0-5 [facility] Erythrocyte distribution wid th ratioOrdered By: Alex Sanon on 12-06-2024 Erythrocyte distribution width (RBC) [Ratio] 13.6 % 11.6-14.6 [facility] Erythrocyte distribution wid th standard deviationOrdered By: Alex Sanon on 12-06-2024 Erythrocyte distribution width (RBC) [Ratio] 44.0 fl High 35.1-43.9 [facility] Glomerular filtration rate ( GFR) estimation/1.73 sq m using serum, plasma, or whole bOrdered By: Marcin Araujo on 12-06-2024 GFR/1.73 sq M.predicted among non-blacks MDRD (S/P/Bld) [Vol rate/Area] 26 mL/min/{1.73_m2} Low >60 [facility] deOrdered By: Alex Sanon on 12-06-2024 Glucose [Mass/Vol] 197 mg/dL High 74-106 [facility] Hematocrit Auto (Bld) [Volum e fraction]Ordered By: Alex Sanon on 12-06-2024 Hematocrit (Bld) [Volume fraction] 35.0 % Low 40-54 [facility] Hemoglobin measurementOrdere d By: Alex Sanon on 12-06-2024 Hemoglobin (Bld) [Mass/Vol] 11.6 g/dL Low 13.0-16.5 [facility] Immature granulocytes/100 WB C Auto (Bld)Ordered By: Alex Sanon on 12-06-2024 Immature granulocytes/100 WBC (Bld) 0.600 % 0.0-0.9 [facility] MCV (mean corpuscular volume ) determinationOrdered By: Alex Sanon on 12-06-2024 MCV (RBC) [Entitic vol] 87.9 fL 80-94 [facility] Magnesiumon 12-06-2024 Magnesium [Mass/Vol] 2.4 mg/dL High 1.5-2.2 [facility] Comment on above: Performed By: #### L 501.2300, L501.5200, L500.2500, L100.0100 ####[facility] [address] [place], [place], [id number] Magnesium measurement (mass/ volume)Ordered By: Alex Sanon on 12-06-2024 Magnesium (Unsp spec) [Mass/Vol] 2.4 mg/dL High 1.5-2.2 [facility] Mean corpuscular hemoglobin (MCH) determinationOrdered By: Alex Sanon on 12-06-2024 MCH (RBC) [Entitic mass] 29.1 pg 27.0-32.0 [facility] Monocyte percentageOrdered B y: Alex Sanon on 12-06-2024 Monocytes/100 WBC (Bld) 12.9 % High 0-10 [facility] Neutrophil percentageOrdered By: Alex Sanon on 12-06-2024 Neutrophils/100 WBC (Bld) 72.7 % High 47-70 [facility] Phosphoruson 12-06-2024 Phosphate [Mass/Vol] 2.9 mg/dL Normal 2.7-4.5 [facility] Comment on above: Performed By: #### L 501.2300, L501.5200, L500.2500, L100.0100 ####[facility] [address] [place], [place], [address] Platelet countOrdered By: Danis Sanon on 12-06-2024 Platelets (Bld) [#/Vol] 140 10*3/uL Low 150-450 [facility] Potassium measurement (mass/ volume)Ordered By: Marcin Araujo on 12-06-2024 Potassium (Unsp spec) [Mass/Vol] 4.1 mmol/L 3.3-5.1 [facility] RBC Auto (Bld) [#/Vol]Ordere d By: Alex Sanon on 12-06-2024 RBC (Bld) [#/Vol] 3.98 10*6/uL Low 4.6-6.2 [facility] Serum creatinine measurement (mass/volume)Ordered By: Marcin Araujo on 12-06-2024 Creatinine [Mass/Vol] 2.46 mg/dL High 0.70-1.20 [facility] Serum glucose measurement (m ass/volume)Ordered By: Marcin Araujo on 12-06-2024 Glucose [Mass/Vol] 186 mg/dL High 70-99 [facility] Serum or plasma calcium francine urement (mass/volume)Ordered By: Marcin Araujo on 12-06-2024 Calcium [Mass/Vol] 9.2 mg/dL 7.6-11.0 [facility] Serum or plasma urea nitroge n measurement (mass/volume)Ordered By: Marcin Araujo on 12-06-2024 Urea nitrogen [Mass/Vol] 40 mg/dL High 4-19 [facility] Sodium levelOrdered By: Madeline Araujo on 12-06-2024 Sodium [Moles/Vol] 133 mmol/L 133-145 [facility] White blood cell (WBC) count Ordered By: Alex Sanon on 12-06-2024 WBC (Bld) [#/Vol] 9.4 10*3/uL 4.4-11.0 [facility] Anion gap in Serum or Plasma Ordered By: Abraham Ridley on 12-05-2024 Anion gap [Moles/Vol] 19 mmol/L High 5-15 [facility] BUN/creatinine ratioOrdered By: Abraham Ridley on 12-05-2024 Urea nitrogen/Creatinine [Mass ratio] 18.2 mg/mg 10-20 [facility] Basic Metabolic Profile (BMP )on 12-05-2024 BUN/CRE 18.2 RATIO Normal 10-20 [facility] Comment on above: Performed By: #### L 500.2500 ####[facility] [address] [place] [place], [address] Calcium [Mass/Vol] 9.1 mg/dL Normal 7.6-11.0 [facility] Comment on above: Performed By: #### L 500.2500 ####[facility] [address] [place], [address] Chloride [Moles/Vol] 96 mmol/L Low 98-108 [facility] Comment on above: Performed By: #### L 500.2500 ####[facility] [address] [place], [address] CO2 [Moles/Vol] 22.4 mmol/L Normal 21.0-32.0 [facility] Comment on above: Performed By: #### L 500.2500 ####[facility] [address] [place], [address] Creatinine [Mass/Vol] 2.57 mg/dL High 0.70-1.20 [facility] Comment on above: Performed By: #### L 500.2500 ####[facility] [address] [place], [address] ECRCL 27.41 ml/min Low 50-250 [facility] Comment on above: Performed By: #### L 500.2500 ####[facility] [address] [place], [address] GAP 19 High 5-15 [facility] Comment on above: Performed By: #### L 500.2500 ####[facility] [address] [place], [address] GFR/1.73 sq M.predicted among non-blacks MDRD (S/P/Bld) [Vol rate/Area] 25 mL/min/{1.73_m2} Low >60 [facility] Comment on above: Result Comment: mL/m in/1.73m2 CKD-EPI Creatinine Equation (2020) Performed By: #### L 500.2500 ####[facility] [address] [place], [address] Glucose [Mass/Vol] 155 mg/dL High 70-99 [facility] Comment on above: Performed By: #### L 500.2500 ####[facility] [address] [place], [address] Potassium [Moles/Vol] 3.2 mmol/L Low 3.3-5.1 [facility] Comment on above: Performed By: #### L 500.2500 ####[facility] [address] [place], [address] Sodium [Moles/Vol] 137 mmol/L Normal 133-145 [facility] Comment on above: Performed By: #### L 500.2500 ####[facility] [address] [place], [address] Urea nitrogen [Mass/Vol] 47 mg/dL High 4-19 [facility] Comment on above: Performed By: #### L 500.2500 ####[facility] [address] [place], [address] Bedside Glucoseon 12-05-2024 FINGERSTICK GLU 196 mg/dL High 74-106 [facility] Comment on above: Result Comment: WILDA GEMENT OF PATIENT CARE PER NURSING PROTOCOL Performed By: #### L 501.080 ####[facility] [address] [place], [address] FINGERSTICK GLU 183 mg/dL High 74-106 [facility] Comment on above: Result Comment: WILDA GEMENT OF PATIENT CARE PER NURSING PROTOCOL Performed By: #### L 501.080 ####[facility] [address] [place], [address] FINGERSTICK GLU 194 mg/dL High 74-106 [facility] Comment on above: Result Comment: WILDA GEMENT OF PATIENT CARE PER NURSING PROTOCOL Performed By: #### L 501.080 ####[facility] [address] [place], [address] FINGERSTICK GLU 190 mg/dL High 74-106 [facility] Comment on above: Result Comment: WILDA GEMENT OF PATIENT CARE PER NURSING PROTOCOL Performed By: #### L 501.080 ####[facility] [address] [place] [place], [address] Carbon dioxide, total [Moles /volume] in Central venous bloodOrdered By: Abraham Ridley on 12-05-2024 CO2 [Moles/Vol] 22.4 mmol/L 21.0-32.0 [facility] Chloride assayOrdered By: Jaylen Ridley on 12-05-2024 Chloride [Moles/Vol] 96 mmol/L Low 98-108 [facility] Glomerular filtration rate ( GFR) estimation/1.73 sq m using serum, plasma, or whole bOrdered By: Abraham Ridley on 12-05-2024 GFR/1.73 sq M.predicted among non-blacks MDRD (S/P/Bld) [Vol rate/Area] 25 mL/min/{1.73_m2} Low >60 [facility] Glucose measurement at [facility] deOrdered By: Abraham Ridley on 12-05-2024 Glucose [Mass/Vol] 190 mg/dL High 74-106 [facility] Potassium measurement (mass/ volume)Ordered By: Abraham Ridley on 12-05-2024 Potassium (Unsp spec) [Mass/Vol] 3.2 mmol/L Low 3.3-5.1 [facility] Serum creatinine measurement (mass/volume)Ordered By: Abraham Ridley on 12-05-2024 Creatinine [Mass/Vol] 2.57 mg/dL High 0.70-1.20 [facility] Serum glucose measurement (m ass/volume)Ordered By: Abraham Ridley on 12-05-2024 Glucose [Mass/Vol] 155 mg/dL High 70-99 [facility] Serum or plasma calcium francine urement (mass/volume)Ordered By: Abraham Ridley on 12-05-2024 Calcium [Mass/Vol] 9.1 mg/dL 7.6-11.0 [facility] Serum or plasma urea nitroge n measurement (mass/volume)Ordered By: Abraham Ridley on 12-05-2024 Urea nitrogen [Mass/Vol] 47 mg/dL High 4-19 [facility] Sodium levelOrdered By: Isael Ridley on 12-05-2024 Sodium [Moles/Vol] 137 mmol/L 133-145 [facility] 12 Lead EKGon 12-04-2024 12 Lead EKG Normal [facility] Absolute lymphocyte countOrd ered By: Ramonita Herron on 12-04-2024 Lymphocytes Auto (Unsp spec) [#/Vol] 1.07 10*3/uL 0.83-4.51 [facility] Automated lymphocyte count a s percentage of total leukocytesOrdered By: Ramonita Herron on 12-04-2024 Lymphocytes/100 WBC Auto (Unsp spec) 11.1 % Low 19-41 [facility] Basic Metabolic Profile (BMP )on 12-04-2024 BUN/CRE 19.4 RATIO Normal 10-20 [facility] Comment on above: Performed By: #### L 500.2500, L100.0100 ####[facility] [address] [place], [address] Calcium [Mass/Vol] 9.2 mg/dL Normal 7.6-11.0 [facility] Comment on above: Performed By: #### L 500.2500, L100.0100 ####[facility] [address] [place], [address] Chloride [Moles/Vol] 96 mmol/L Low 98-108 [facility] Comment on above: Performed By: #### L 500.2500, L100.0100 ####[facility] [address] [place], [address] CO2 [Moles/Vol] 21.4 mmol/L Normal 21.0-32.0 [facility] Comment on above: Performed By: #### L 500.2500, L100.0100 ####[facility] [address] [place], [address] Creatinine [Mass/Vol] 2.53 mg/dL High 0.70-1.20 [facility] Comment on above: Performed By: #### L 500.2500, L100.0100 ####[facility] [address] [place], [address] ECRCL 28.47 ml/min Low 50-250 [facility] Comment on above: Performed By: #### L 500.2500, L100.0100 ####[facility] [address] [place], [address] GAP 19 High 5-15 [facility] Comment on above: Performed By: #### L 500.2500, L100.0100 ####[facility] [address] [place], [address] GFR/1.73 sq M.predicted among non-blacks MDRD (S/P/Bld) [Vol rate/Area] 25 mL/min/{1.73_m2} Low >60 [facility] Comment on above: Result Comment: mL/m in/1.73m2 CKD-EPI Creatinine Equation (2020) Performed By: #### L 500.2500, L100.0100 ####[facility] [address] [place], [address] Glucose [Mass/Vol] 140 mg/dL High 70-99 [facility] Comment on above: Performed By: #### L 500.2500, L100.0100 ####[facility] [address] [place], [address] Potassium [Moles/Vol] 3.1 mmol/L Low 3.3-5.1 [facility] Comment on above: Performed By: #### L 500.2500, L100.0100 ####[facility] [address] [place], [address] Sodium [Moles/Vol] 137 mmol/L Normal 133-145 [facility] Comment on above: Performed By: #### L 500.2500, L100.0100 ####[facility] [address] [place], [address] Urea nitrogen [Mass/Vol] 49 mg/dL High 4-19 [facility] Comment on above: Performed By: #### L 500.2500, L100.0100 ####[facility] [address] [place], [address] Basophil percentageOrdered B y: Ramonita Herron on 12-04-2024 Basophils/100 WBC (Bld) 0.3 % 0-1 [facility] Bedside Glucoseon 12-04-2024 FINGERSTICK GLU 151 mg/dL High 74-106 [facility] Comment on above: Result Comment: WILDA GEMENT OF PATIENT CARE PER NURSING PROTOCOL Performed By: #### L 501.080 ####[facility] [address] [place], [address] FINGERSTICK GLU 147 mg/dL High 74-106 [facility] Comment on above: Result Comment: WILDA GEMENT OF PATIENT CARE PER NURSING PROTOCOL Performed By: #### L 501.080 ####[facility] [address] [place], [address] FINGERSTICK GLU 207 mg/dL High 74-106 [facility] Comment on above: Result Comment: WILDA GEMENT OF PATIENT CARE PER NURSING PROTOCOL Performed By: #### L 501.080 ####[facility] [address] [place], [address] FINGERSTICK GLU 147 mg/dL High 74-106 [facility] Comment on above: Result Comment: WILDA GEMENT OF PATIENT CARE PER NURSING PROTOCOL Performed By: #### L 501.080 ####[facility] [address] [place] [place], [address] CBC W/Diff, Automatedon 08-0 4-2025 Absolute Lymph 1.07 X10 3/uL Normal 0.83-4.51 [facility] Comment on above: Performed By: #### L 500.2500, L100.0100 ####[facility] [address] [place], [address] Absolute Neut 7.1 X10 3/uL Normal 2.0-7.7 [facility] Comment on above: Performed By: #### L 500.2500, L100.0100 ####[facility] [address] [place], [address] Basophils/100 WBC (Bld) 0.3 % Normal 0-1 [facility] Comment on above: Performed By: #### L 500.2500, L100.0100 ####[facility] [address] [place], [address] Eosinophils/100 WBC (Bld) 2.2 % Normal 0-5 [facility] Comment on above: Performed By: #### L 500.2500, L100.0100 ####[facility] [address] [place], [address] Erythrocyte distribution width (RBC) [Ratio] 13.7 % Normal 11.6-14.6 [facility] Comment on above: Performed By: #### L 500.2500, L100.0100 ####[facility] [address] [place], [address] Hematocrit (Bld) [Volume fraction] 31.5 % Low 40-54 [facility] Comment on above: Performed By: #### L 500.2500, L100.0100 ####[facility] [address] [place] [place], [address] Hemoglobin (Bld) [Mass/Vol] 10.5 g/dL Low 13.0-16.5 [facility] Comment on above: Performed By: #### L 500.2500, L100.0100 ####[facility] [address] [place], [address] IG% 0.600 Normal 0.0-0.9 [facility] Comment on above: Result Comment: IG% - Immature Granulocytes (promyelocytes, myelocytes andmetamyelocytes) > 1% indicates that a LEFT SHIFT is Present. Performed By: #### L 500.2500, L100.0100 ####[facility] [address] [place], [address] Lymphocytes/100 WBC (Bld) 11.1 % Low 19-41 [facility] Comment on above: Performed By: #### L 500.2500, L100.0100 ####[facility] [address] [place], [address] MCH (RBC) [Entitic mass] 29.2 pg Normal 27.0-32.0 [facility] Comment on above: Performed By: #### L 500.2500, L100.0100 ####[facility] [address] [place], [address] MCHC (RBC) [Mass/Vol] 33.3 g/dL Normal 32-36 [facility] Comment on above: Performed By: #### L 500.2500, L100.0100 ####[facility] [address] [place], [address] MCV (RBC) [Entitic vol] 87.7 fL Normal 80-94 [facility] Comment on above: Performed By: #### L 500.2500, L100.0100 ####[facility] [address] [place], [address] Monocytes/100 WBC (Bld) 11.9 % High 0-10 [facility] Comment on above: Performed By: #### L 500.2500, L100.0100 ####[facility] [address] [place], [address] Neutrophils/100 WBC (Bld) 73.9 % High 47-70 [facility] Comment on above: Performed By: #### L 500.2500, L100.0100 ####[facility] [address] [place], [address] Nucleated RBC (Bld) [#/Vol] 0 10*3/uL Normal 0-5 [facility] Comment on above: Performed By: #### L 500.2500, L100.0100 ####[facility] [address] [place] [place], [address] Platelet mean volume (Bld) [Entitic vol] 13.7 fL High 6.2-12.0 [facility] Comment on above: Performed By: #### L 500.2500, L100.0100 ####[facility] [address] [place] [place], [address] Platelets (Bld) [#/Vol] 126 10*3/uL Low 150-450 [facility] Comment on above: Performed By: #### L 500.2500, L100.0100 ####[facility] [address] [place], [address] RBC (Bld) [#/Vol] 3.59 10*6/uL Low 4.6-6.2 [facility] Comment on above: Performed By: #### L 500.2500, L100.0100 ####[facility] [address] [place], [address] RDW SD 43.8 fl Normal 35.1-43.9 [facility] Comment on above: Performed By: #### L 500.2500, L100.0100 ####[facility] [address] [place], [address] WBC (Bld) [#/Vol] 9.7 10*3/uL Normal 4.4-11.0 [facility] Comment on above: Performed By: #### L 500.2500, L100.0100 ####[facility] [address] [place], [address] Cardiac catheterization repo rtOrdered By: Marcin Araujo on 12-04-2024 Cardiac catheterization study [facility] Work Phone: [phone] Electrocardiogram reportOrde red By: Marcin Araujo on 12-04-2024 EKG study [facility] Work Phone: [phone] Eosinophil percentageOrdered By: Ramonita Herron on 12-04-2024 Eosinophils/100 WBC (Bld) 2.2 % 0-5 [facility] Erythrocyte distribution wid th ratioOrdered By: Ramonita Herron on 12-04-2024 Erythrocyte distribution width (RBC) [Ratio] 13.7 % 11.6-14.6 [facility] Erythrocyte distribution wid th standard deviationOrdered By: Ramonita Herron on 12-04-2024 Erythrocyte distribution width (RBC) [Ratio] 43.8 fl 35.1-43.9 [facility] Hematocrit Auto (Bld) [Volum e fraction]Ordered By: Ramonita Herron on 12-04-2024 Hematocrit (Bld) [Volume fraction] 31.5 % Low 40-54 [facility] Hemoglobin measurementOrdere d By: Ramonita Herron on 12-04-2024 Hemoglobin (Bld) [Mass/Vol] 10.5 g/dL Low 13.0-16.5 [facility] Immature granulocytes/100 WB C Auto (Bld)Ordered By: Ramonita Herron on 12-04-2024 Immature granulocytes/100 WBC (Bld) 0.600 % 0.0-0.9 [facility] MCV (mean corpuscular volume ) determinationOrdered By: Ramonita Herron on 12-04-2024 MCV (RBC) [Entitic vol] 87.7 fL 80-94 [facility] Mean corpuscular hemoglobin (MCH) determinationOrdered By: Ramonita Herron on 12-04-2024 MCH (RBC) [Entitic mass] 29.2 pg 27.0-32.0 [facility] Monocyte percentageOrdered B y: Ramonita Herron on 12-04-2024 Monocytes/100 WBC (Bld) 11.9 % High 0-10 [facility] Neutrophil percentageOrdered By: Ramonita Herron on 12-04-2024 Neutrophils/100 WBC (Bld) 73.9 % High 47-70 [facility] Platelet countOrdered By: Parish Herron on 12-04-2024 Platelets (Bld) [#/Vol] 126 10*3/uL Low 150-450 [facility] RBC Auto (Bld) [#/Vol]Ordere d By: Ramonita Herron on 12-04-2024 RBC (Bld) [#/Vol] 3.59 10*6/uL Low 4.6-6.2 [facility] White blood cell (WBC) count Ordered By: Ramonita Herron on 12-04-2024 WBC (Bld) [#/Vol] 9.7 10*3/uL 4.4-11.0 [facility] 12 Lead EKGon 12-03-2024 12 Lead EKG Normal [facility] Bedside Glucoseon 12-03-2024 FINGERSTICK GLU 153 mg/dL High 74-106 [facility] Comment on above: Result Comment: WILDA GEMENT OF PATIENT CARE PER NURSING PROTOCOL Performed By: #### L 501.080 ####[facility] [address] [facility] [address] FINGERSTICK GLU 156 mg/dL High 74-106 [facility] Comment on above: Result Comment: WILDA GEMENT OF PATIENT CARE PER NURSING PROTOCOL Performed By: #### L 501.080 ####[facility] [address] [facility] [address] FINGERSTICK GLU 226 mg/dL High -106 [facility] Comment on above: Result Comment: WILDA GEMENT OF PATIENT CARE PER NURSING PROTOCOL Performed By: #### L 501.080 ####[facility] [address] [facility] [address] FINGERSTICK GLU 140 mg/dL High 74-106 [facility] Comment on above: Result Comment: WILDA GEMENT OF PATIENT CARE PER NURSING PROTOCOL Performed By: #### L 501.080 ####[facility] [address] [place], [address] FINGERSTICK GLU 200 mg/dL High 74-106 [facility] Comment on above: Result Comment: WILDA GEMENT OF PATIENT CARE PER NURSING PROTOCOL Performed By: #### L 501.080 ####[facility] [address] [place], [address] Bilirubin Test strip Ql (U)O rdered By: Alex Resendez on 12-03-2024 Bilirubin Ql (U) Negative Negative [facility] Bilirubin, totalOrdered By: Alex Resendez on 12-03-2024 Bilirubin [Mass/Vol] 1.27 mg/dL 0.00-1.30 [facility] CBC W/Diff, Automatedon 08 Absolute Lymph 0.95 X10 3/uL Normal 0.83-4.51 [facility] Comment on above: Performed By: #### L 100.0100, L500.4050, L501.2300, L501.5200 ####[facility] [address] [place], [address] Absolute Neut 6.9 X10 3/uL Normal 2.0-7.7 [facility] Comment on above: Performed By: #### L 100.0100, L500.4050, L501.2300, L501.5200 ####[facility] [address] [place], [address] Basophils/100 WBC (Bld) 0.2 % Normal 0-1 [facility] Comment on above: Performed By: #### L 100.0100, L500.4050, L501.2300, L501.5200 ####[facility] [address] [place], [address] Eosinophils/100 WBC (Bld) 1.8 % Normal 0-5 [facility] Comment on above: Performed By: #### L 100.0100, L500.4050, L501.2300, L501.5200 ####[facility] [address] [place], [address] Erythrocyte distribution width (RBC) [Ratio] 14.2 % Normal 11.6-14.6 [facility] Comment on above: Performed By: #### L 100.0100, L500.4050, L501.2300, L501.5200 ####[facility] [address] [place], [address] Hematocrit (Bld) [Volume fraction] 31.8 % Low 40-54 [facility] Comment on above: Performed By: #### L 100.0100, L500.4050, L501.2300, L501.5200 ####[facility] [address] [place], [address] Hemoglobin (Bld) [Mass/Vol] 10.3 g/dL Low 13.0-16.5 [facility] Comment on above: Performed By: #### L 100.0100, L500.4050, L501.2300, L501.5200 ####[facility] [address] [place], [address] IG% 0.600 Normal 0.0-0.9 [facility] Comment on above: Result Comment: IG% - Immature Granulocytes (promyelocytes, myelocytes andmetamyelocytes) > 1% indicates that a LEFT SHIFT is Present. Performed By: #### L 100.0100, L500.4050, L501.2300, L501.5200 ####[facility] [address] [place], [address] Lymphocytes/100 WBC (Bld) 10.5 % Low 19-41 [facility] Comment on above: Performed By: #### L 100.0100, L500.4050, L501.2300, L501.5200 ####[facility] [address] [place], [address] MCH (RBC) [Entitic mass] 29.3 pg Normal 27.0-32.0 [facility] Comment on above: Performed By: #### L 100.0100, L500.4050, L501.2300, L501.5200 ####[facility] [address] [place], [address] MCHC (RBC) [Mass/Vol] 32.4 g/dL Normal 32-36 [facility] Comment on above: Performed By: #### L 100.0100, L500.4050, L501.2300, L501.5200 ####[facility] [address] [place], [address] MCV (RBC) [Entitic vol] 90.3 fL Normal 80-94 [facility] Comment on above: Performed By: #### L 100.0100, L500.4050, L501.2300, L501.5200 ####[facility] [address] [place], [address] Monocytes/100 WBC (Bld) 11.4 % High 0-10 [facility] Comment on above: Performed By: #### L 100.0100, L500.4050, L501.2300, L501.5200 ####[facility] [address] [place], [address] Neutrophils/100 WBC (Bld) 75.5 % High 47-70 [facility] Comment on above: Performed By: #### L 100.0100, L500.4050, L501.2300, L501.5200 ####[facility] [address] [place], [address] Nucleated RBC (Bld) [#/Vol] 0 10*3/uL Normal 0-5 [facility] Comment on above: Performed By: #### L 100.0100, L500.4050, L501.2300, L501.5200 ####[facility] [address] [place], [address] Platelet mean volume (Bld) [Entitic vol] 12.4 fL High 6.2-12.0 [facility] Comment on above: Performed By: #### L 100.0100, L500.4050, L501.2300, L501.5200 ####[facility] [address] [place], [address] Platelets (Bld) [#/Vol] 104 10*3/uL Low 150-450 [facility] Comment on above: Performed By: #### L 100.0100, L500.4050, L501.2300, L501.5200 ####[facility] [address] [place], [address] RBC (Bld) [#/Vol] 3.52 10*6/uL Low 4.6-6.2 [facility] Comment on above: Performed By: #### L 100.0100, L500.4050, L501.2300, L501.5200 ####[facility] [address] [place], [address] RDW SD 46.0 fl High 35.1-43.9 [facility] Comment on above: Performed By: #### L 100.0100, L500.4050, L501.2300, L501.5200 ####[facility] [address] [place], [address] WBC (Bld) [#/Vol] 9.1 10*3/uL Normal 4.4-11.0 [facility] Comment on above: Performed By: #### L 100.0100, L500.4050, L501.2300, L501.5200 ####[facility] [address] [place], [address] Comprehensive Metabolic Prof ilon 12-03-2024 Albumin [Mass/Vol] 3.4 g/dL Normal 3.4-4.8 [facility] Comment on above: Performed By: #### L 100.0100, L500.4050, L501.2300, L501.5200 ####[facility] [address] [place], [address] Albumin/Globulin [Mass ratio] 1.2 {ratio} Normal 0.9-2.4 [facility] Comment on above: Performed By: #### L 100.0100, L500.4050, L501.2300, L501.5200 ####[facility] [address] [place], [address] ALK PHOS 94 U/L Normal 40-129 [facility] Comment on above: Performed By: #### L 100.0100, L500.4050, L501.2300, L501.5200 ####[facility] [address] [place], [address] ALT [Catalytic activity/Vol] 47 U/L Normal <=46 [facility] Comment on above: Performed By: #### L 100.0100, L500.4050, L501.2300, L501.5200 ####[facility] [address] [place], [address] AST [Catalytic activity/Vol] 134 U/L High <=37 [facility] Comment on above: Performed By: #### L 100.0100, L500.4050, L501.2300, L501.5200 ####[facility] [address] [place], [address] Bilirubin [Mass/Vol] 1.27 mg/dL Normal 0.00-1.30 [facility] Comment on above: Performed By: #### L 100.0100, L500.4050, L501.2300, L501.5200 ####[facility] [address] [place], [address] BUN/CRE 20.6 RATIO High 10-20 [facility] Comment on above: Performed By: #### L 100.0100, L500.4050, L501.2300, L501.5200 ####[facility] [address] [place] [place], [address] Calcium [Mass/Vol] 8.9 mg/dL Normal 7.6-11.0 [facility] Comment on above: Performed By: #### L 100.0100, L500.4050, L501.2300, L501.5200 ####[facility] [address] [place] [place], [address] Chloride [Moles/Vol] 100 mmol/L Normal 98-108 [facility] Comment on above: Performed By: #### L 100.0100, L500.4050, L501.2300, L501.5200 ####[facility] [address] [place] [place], [address] CO2 [Moles/Vol] 18.7 mmol/L Low 21.0-32.0 [facility] Comment on above: Performed By: #### L 100.0100, L500.4050, L501.2300, L501.5200 ####[facility] [address] [place], [address] Creatinine [Mass/Vol] 2.58 mg/dL High 0.70-1.20 [facility] Comment on above: Performed By: #### L 100.0100, L500.4050, L501.2300, L501.5200 ####[facility] [address] [place] [place], [address] ECRCL 28.22 ml/min Low 50-250 [facility] Comment on above: Performed By: #### L 100.0100, L500.4050, L501.2300, L501.5200 ####[facility] [address] [place], [address] GAP 15 Normal 5-15 [facility] Comment on above: Performed By: #### L 100.0100, L500.4050, L501.2300, L501.5200 ####[facility] [address] [place], [address] GFR/1.73 sq M.predicted among non-blacks MDRD (S/P/Bld) [Vol rate/Area] 25 mL/min/{1.73_m2} Low >60 [facility] Comment on above: Result Comment: mL/m in/1.73m2 CKD-EPI Creatinine Equation (2020) Performed By: #### L 100.0100, L500.4050, L501.2300, L501.5200 ####[facility] [address] [place], [address] Globulin (S) [Mass/Vol] 2.8 g/dL Normal 2.2-4.2 [facility] Comment on above: Performed By: #### L 100.0100, L500.4050, L501.2300, L501.5200 ####[facility] [address] [place], [address] Glucose [Mass/Vol] 154 mg/dL High 70-99 [facility] Comment on above: Performed By: #### L 100.0100, L500.4050, L501.2300, L501.5200 ####[facility] [address] [place], [address] Potassium [Moles/Vol] 3.7 mmol/L Normal 3.3-5.1 [facility] Comment on above: Performed By: #### L 100.0100, L500.4050, L501.2300, L501.5200 ####[facility] [address] [place], [address] Sodium [Moles/Vol] 134 mmol/L Normal 133-145 [facility] Comment on above: Performed By: #### L 100.0100, L500.4050, L501.2300, L501.5200 ####[facility] [address] [place], [address] T PROT 6.3 g/dL Normal 5.9-8.4 [facility] Comment on above: Performed By: #### L 100.0100, L500.4050, L501.2300, L501.5200 ####[facility] [address] [place], [address] Urea nitrogen [Mass/Vol] 53 mg/dL High 4-19 [facility] Comment on above: Performed By: #### L 100.0100, L500.4050, L501.2300, L501.5200 ####[facility] [address] [place], [address] Consultation - Cardiologyon 12-03-2024 Consultation - Cardiology Normal [facility] Ketones Test strip Ql (U)Ord ered By: Alex Resendez on 12-03-2024 Ketones Ql (U) Negative Negative [facility] Magnesiumon 12-03-2024 Magnesium [Mass/Vol] 2.5 mg/dL High 1.5-2.2 [facility] Comment on above: Performed By: #### L 100.0100, L500.4050, L501.2300, L501.5200 ####[facility] [address] [place], [address] Magnesium measurement (mass/ volume)Ordered By: Alex Resendez on 12-03-2024 Magnesium (Unsp spec) [Mass/Vol] 2.5 mg/dL High 1.5-2.2 [facility] Mucus LM Ql (Urine sed)Order ed By: Alex Resendez on 12-03-2024 Mucus Ql (Urine sed) 0 SEEN /hpf [facility] Nitrite Test strip Ql (U)Ord ered By: Alex Resendez on 12-03-2024 Nitrite Ql (U) Negative Negative [facility] No Panel InformationOrdered By: Alex Resendez on 12-03-2024 134 U/L High <38 [facility] Phosphoruson 12-03-2024 Phosphate [Mass/Vol] 3.4 mg/dL Normal 2.7-4.5 [facility] Comment on above: Performed By: #### L 100.0100, L500.4050, L501.2300, L501.5200 ####[facility] [address] [place], [address] Protein Test strip Ql (U)Ord ered By: Alex Resendez on 12-03-2024 Protein Ql (U) 15 mg/dl High Negative [facility] Serum globulin measurementOr dered By: Alex Resendez on 12-03-2024 Globulin (S) [Mass/Vol] 2.8 g/dL 2.2-4.2 [facility] Serum or plasma alanine guerrero otransferase (ALT) measurementOrdered By: Alex Resendez on 12-03-2024 ALT [Catalytic activity/Vol] 47 U/L <47 [facility] Serum or plasma albumin francine urement (mass/volume)Ordered By: Alex Resendez on 12-03-2024 Albumin [Mass/Vol] 3.4 g/dL 3.4-4.8 [facility] Serum or plasma albumin/glob ulin mass ratioOrdered By: Alex Resendez on 12-03-2024 Albumin/Globulin [Mass ratio] 1.2 {ratio} 0.9-2.4 [facility] Serum or plasma alkaline bell sphatase measurementOrdered By: Alex Resendez on 12-03-2024 ALP [Catalytic activity/Vol] 94 U/L 40-129 [facility] Squamous epithelial cells de tection in urine sediment by light microscopyOrdered By: Alex Resendez on 12-03-2024 Epithelial cells.squamous LM Ql (Urine sed) 0 SEEN /hpf 0-5 [facility] Total proteinOrdered By: Yosehp Resendez on 12-03-2024 Protein [Mass/Vol] 6.3 g/dL 5.9-8.4 [facility] Troponin T HS 2 HRon 025 Trop T High Sen > 09525 Invalid Interpretation Code <=22 [facility] Comment on above: Result Comment: Crit ical Result(s) Called at:0007 by:??KEIKO BABB Results read back by same. Performed By: #### L 499.0042 ####[facility] [address] [place], [place], [id number]) Troponin T HS 4 HRon 025 Trop T High Sen > 02620 Invalid Interpretation Code <=22 [facility] Comment on above: Result Comment: Crit ical Result(s) Called at: 0240 by:??KEIKO HOOPER Results read back by same. Performed By: #### L 499.0043 ####[facility] [address] [place], [address] Troponin T.cardiac [Mass/vol ume] in Serum or Plasma by High sensitivity methodOrdered By: Rasheed Canela on 12-03-2024 Troponin T.cardiac High sensitivity method [Mass/Vol] > 67852 ng/L High <22 [facility] Urinalysis, Completeon 12-03 BACTERIA 0 SEEN Normal None Seen [facility] Comment on above: Order Comment: CLEAN CATCH Performed By: #### L 400.0001 ####[facility] [address] [place], [address] EPI,SQUAMOUS 0 SEEN Normal 0-5 [facility] Comment on above: Order Comment: CLEAN CATCH Performed By: #### L 400.0001 ####[facility] [address] [place], [address] Mucus Ql (Urine sed) 0 SEEN Normal [facility] Comment on above: Order Comment: CLEAN CATCH Performed By: #### L 400.0001 ####[facility] [address] [place], [address] RBC 0 SEEN Normal 0-5 [facility] Comment on above: Order Comment: CLEAN CATCH Performed By: #### L 400.0001 ####[facility] [address] [place], [address] WBC 0 SEEN Normal 0-5 [facility] Comment on above: Order Comment: CLEAN CATCH Performed By: #### L 400.0001 ####[facility] [address] [place], [address] Urine clarityOrdered By: Yoseph Resendez on 12-03-2024 Clarity (U) Clear Clear [facility] Urine color determinationOrd ered By: Alex Resendez on 12-03-2024 Color (U) Yellow Yellow [facility] Urine glucose detectionOrder ed By: Alex Resendez on 12-03-2024 Glucose Ql (U) Normal mg/dl Normal [facility] Urine leukocyte esterase det ection by dipstickOrdered By: Alex Resendez on 12-03-2024 Leukocyte esterase Test strip Ql (U) Negative Negative [facility] Urine pHOrdered By: Alex best on 12-03-2024 pH (U) 6.0 [pH] 5.0 - 8.0 [facility] [facility] Urine sediment bacteria coun t by microscopy (number/high power field)Ordered By: Alex Resendez on 12-03-2024 Bacteria LM.HPF (Urine sed) [#/Area] 0 /[HPF] None Seen [facility] Urine specific gravity measu rementOrdered By: Alex Resendez on 12-03-2024 Specific gravity (U) [Rel density] 1.015 1.002-1.03 0 [facility] Urine urobilinogen measureme ntOrdered By: Alex Resendez on 12-03-2024 Urobilinogen Ql (U) Normal mg/dl Normal [facility] White blood cell countOrdere d By: Alex Resendez on 12-03-2024 White blood cell count 0 SEEN /hpf 0-5 [facility] 12 Lead EKGon 12-02-2024 12 Lead EKG Normal [facility] ACT Activated Clotting Timeo n 12-02-2024 ACTk CLOT TIME 245 sec High 74-137 [facility] Comment on above: Performed By: #### L 9100.0100 ####[facility] [address] [place], [address] Absolute lymphocyte countOrd ered By: Rasheed Canela on 12-02-2024 Lymphocytes Auto (Unsp spec) [#/Vol] 1.13 10*3/uL 0.83-4.51 [facility] Absolute lymphocyte countOrd ered By: Nickie Danielson on 12-02-2024 Lymphocytes Auto (Unsp spec) [#/Vol] 0.85 10*3/uL 0.83-4.51 [facility] Activated partial thrombopla stin time (aPTT) in platelet poor plasma by coagulation aOrdered By: Rasheed Canela on 12-02-2024 aPTT Coag (PPP) [Time] 31.6 s 24.1-36.2 [facility] Anion gap in Serum or Plasma Ordered By: Rasheed Canela on 12-02-2024 Anion gap [Moles/Vol] 14 mmol/L 09-14 [facility] Anion gap in Serum or Plasma Ordered By: Nickie Danielson on 12-02-2024 Anion gap [Moles/Vol] 14 mmol/L 09-14 [facility] Automated lymphocyte count a s percentage of total leukocytesOrdered By: Rasheed Canela on 12-02-2024 Lymphocytes/100 WBC Auto (Unsp spec) 8.9 % Low [facility] Automated lymphocyte count a s percentage of total leukocytesOrdered By: Nickie Danielson on 12-02-2024 Lymphocytes/100 WBC Auto (Unsp spec) 7.6 % Low [facility] BUN/creatinine ratioOrdered By: Rasheed Canela on 12-02-2024 Urea nitrogen/Creatinine [Mass ratio] 18.0 mg/mg 02-19 [facility] BUN/creatinine ratioOrdered By: Nickie Danielson on 12-02-2024 Urea nitrogen/Creatinine [Mass ratio] 17.2 mg/mg 02-19 [facility] Basic Metabolic Profile (BMP )on 12-02-2024 BUN/CRE 18.0 RATIO Normal - [facility] Comment on above: Performed By: #### L 300.3900, L300.4310, L501.4021, L500.2500, L100.0100 ####[facility] [address] [place], [address] Calcium [Mass/Vol] 9.1 mg/dL Normal 7.6-11.0 [facility] Comment on above: Performed By: #### L 300.3900, L300.4310, L501.4021, L500.2500, L100.0100 ####[facility] [address] [place], [address] Chloride [Moles/Vol] 96 mmol/L Low 98-108 [facility] Comment on above: Performed By: #### L 300.3900, L300.4310, L501.4021, L500.2500, L100.0100 ####[facility] [address] [place], [address] CO2 [Moles/Vol] 20.5 mmol/L Low 21.0-32.0 [facility] Comment on above: Performed By: #### L 300.3900, L300.4310, L501.4021, L500.2500, L100.0100 ####[facility] [address] [place], [address] Creatinine [Mass/Vol] 2.90 mg/dL High 0.70-1.20 [facility] Comment on above: Performed By: #### L 300.3900, L300.4310, L501.4021, L500.2500, L100.0100 ####[facility] [address] [place], [address] ECRCL 25.31 ml/min Low 50-250 [facility] Comment on above: Performed By: #### L 300.3900, L300.4310, L501.4021, L500.2500, L100.0100 ####[facility] [address] [place], [address] GAP 14 Normal 5-15 [facility] Comment on above: Performed By: #### L 300.3900, L300.4310, L501.4021, L500.2500, L100.0100 ####[facility] [address] [place], [address] GFR/1.73 sq M.predicted among non-blacks MDRD (S/P/Bld) [Vol rate/Area] 21 mL/min/{1.73_m2} Low >60 [facility] Comment on above: Result Comment: mL/m in/1.73m2 CKD-EPI Creatinine Equation (2020) Performed By: #### L 300.3900, L300.4310, L501.4021, L500.2500, L100.0100 ####[facility] [address] [place], [address] Glucose [Mass/Vol] 175 mg/dL High 70-99 [facility] Comment on above: Performed By: #### L 300.3900, L300.4310, L501.4021, L500.2500, L100.0100 ####[facility] [address] [place], [address] Potassium [Moles/Vol] 4.6 mmol/L Normal 3.3-5.1 [facility] Comment on above: Performed By: #### L 300.3900, L300.4310, L501.4021, L500.2500, L100.0100 ####[facility] [address] [place], [address] Sodium [Moles/Vol] 131 mmol/L Low 133-145 [facility] Comment on above: Performed By: #### L 300.3900, L300.4310, L501.4021, L500.2500, L100.0100 ####[facility] [address] [place], [address] Urea nitrogen [Mass/Vol] 52 mg/dL High 4-19 [facility] Comment on above: Performed By: #### L 300.3900, L300.4310, L501.4021, L500.2500, L100.0100 ####[facility] [address] [place], [address] BUN/CRE 17.2 RATIO Normal 10-20 [facility] Comment on above: Performed By: #### L 100.0100, L500.2500 ####[facility] [address] [place], [address] Calcium [Mass/Vol] 9.3 mg/dL Normal 7.6-11.0 [facility] Comment on above: Performed By: #### L 100.0100, L500.2500 ####[facility] [address] [place], [address] Chloride [Moles/Vol] 99 mmol/L Normal 98-108 [facility] Comment on above: Performed By: #### L 100.0100, L500.2500 ####[facility] [address] [place], [address] CO2 [Moles/Vol] 20.6 mmol/L Low 21.0-32.0 [facility] Comment on above: Performed By: #### L 100.0100, L500.2500 ####[facility] [address] [place], [address] Creatinine [Mass/Vol] 2.93 mg/dL High 0.70-1.20 [facility] Comment on above: Performed By: #### L 100.0100, L500.2500 ####[facility] [address] [place], [address] ECRCL 24.95 ml/min Low 50-250 [facility] Comment on above: Performed By: #### L 100.0100, L500.2500 ####[facility] [address] [place], [address] GAP 14 Normal 5-15 [facility] Comment on above: Performed By: #### L 100.0100, L500.2500 ####[facility] [address] [place], [address] GFR/1.73 sq M.predicted among non-blacks MDRD (S/P/Bld) [Vol rate/Area] 21 mL/min/{1.73_m2} Low >60 [facility] Comment on above: Result Comment: mL/m in/1.73m2 CKD-EPI Creatinine Equation (2020) Performed By: #### L 100.0100, L500.2500 ####[facility] [address] [place], [address] Glucose [Mass/Vol] 138 mg/dL High 70-99 [facility] Comment on above: Performed By: #### L 100.0100, L500.2500 ####[facility] [address] [place], [address] Potassium [Moles/Vol] 4.8 mmol/L Normal 3.3-5.1 [facility] Comment on above: Performed By: #### L 100.0100, L500.2500 ####[facility] [address] [place] [place], [address] Sodium [Moles/Vol] 133 mmol/L Normal 133-145 [facility] Comment on above: Performed By: #### L 100.0100, L500.2500 ####[facility] [address] [place] [place], [address] Urea nitrogen [Mass/Vol] 50 mg/dL High 4-19 [facility] Comment on above: Performed By: #### L 100.0100, L500.2500 ####[facility] [address] [place], [address] Basophil percentageOrdered B y: Rasheed Canela on 12-02-2024 Basophils/100 WBC (Bld) 0.3 % 0-1 [facility] Basophil percentageOrdered B y: Nickie Jagjit on 12-02-2024 Basophils/100 WBC (Bld) 0.1 % 0-1 [facility] Bedside Glucoseon 12-02-2024 FINGERSTICK GLU 129 mg/dL High 74-106 [facility] Comment on above: Result Comment: WILDA BARROSO OF PATIENT CARE PER NURSING PROTOCOL Performed By: #### L 501.080 ####[facility] [address] [place], [place], [id number] Blood manual differential co mment interpretation (narrative result)Ordered By: Rasheed Canela on 12-02-2024 Manual differential comment Luis Manuel (Bld) [Interp] SCANNED [facility] Brain without Contraston Brain without Contrast Normal [facility] CBC W/Diff, Automatedon PLT EST SLT DEC Normal ADEQ [facility] Comment on above: Performed By: #### L 300.3900, L300.4310, L501.4021, L500.2500, L100.0100 ####[facility] [address] [place], [address] SMEAR COMMENT SCANNED Normal [facility] Comment on above: Performed By: #### L 300.3900, L300.4310, L501.4021, L500.2500, L100.0100 ####[facility] [address] [place], [address] Absolute Lymph 0.85 X10 3/uL Normal 0.83-4.51 [facility] Comment on above: Performed By: #### L 100.0100, L500.2500 ####[facility] [address] [place], [address] Absolute Neut 8.8 X10 3/uL High 2.0-7.7 [facility] Comment on above: Performed By: #### L 100.0100, L500.2500 ####[facility] [address] [place] [place], [address] Basophils/100 WBC (Bld) 0.1 % Normal 0-1 [facility] Comment on above: Performed By: #### L 100.0100, L500.2500 ####[facility] [address] [place], [address] Eosinophils/100 WBC (Bld) 0.7 % Normal 0-5 [facility] Comment on above: Performed By: #### L 100.0100, L500.2500 ####[facility] [address] [place], [address] Erythrocyte distribution width (RBC) [Ratio] 14.4 % Normal 11.6-14.6 [facility] Comment on above: Performed By: #### L 100.0100, L500.2500 ####[facility] [address] [place], [address] Hematocrit (Bld) [Volume fraction] 32.1 % Low 40-54 [facility] Comment on above: Performed By: #### L 100.0100, L500.2500 ####[facility] [address] [place], [address] Hemoglobin (Bld) [Mass/Vol] 10.4 g/dL Low 13.0-16.5 [facility] Comment on above: Performed By: #### L 100.0100, L500.2500 ####[facility] [address] [place], [address] IG% 0.700 Normal 0.0-0.9 [facility] Comment on above: Result Comment: IG% - Immature Granulocytes (promyelocytes, myelocytes andmetamyelocytes) > 1% indicates that a LEFT SHIFT is Present. Performed By: #### L 100.0100, L500.2500 ####[facility] [address] [place], [address] Lymphocytes/100 WBC (Bld) 7.6 % Low 19-41 [facility] Comment on above: Performed By: #### L 100.0100, L500.2500 ####[facility] [address] [place], [address] MCH (RBC) [Entitic mass] 29.5 pg Normal 27.0-32.0 [facility] Comment on above: Performed By: #### L 100.0100, L500.2500 ####[facility] [address] [place], [address] MCHC (RBC) [Mass/Vol] 32.4 g/dL Normal 32-36 [facility] Comment on above: Performed By: #### L 100.0100, L500.2500 ####[facility] [address] [place], [address] MCV (RBC) [Entitic vol] 91.2 fL Normal 80-94 [facility] Comment on above: Performed By: #### L 100.0100, L500.2500 ####[facility] [address] [place], [address] Monocytes/100 WBC (Bld) 12.0 % High 0-10 [facility] Comment on above: Performed By: #### L 100.0100, L500.2500 ####[facility] [address] [place], [address] Neutrophils/100 WBC (Bld) 78.9 % High 47-70 [facility] Comment on above: Performed By: #### L 100.0100, L500.2500 ####[facility] [address] [place], [address] Nucleated RBC (Bld) [#/Vol] 0 10*3/uL Normal 0-5 [facility] Comment on above: Performed By: #### L 100.0100, L500.2500 ####[facility] [address] [place], [address] Platelet mean volume (Bld) [Entitic vol] 13.1 fL High 6.2-12.0 [facility] Comment on above: Performed By: #### L 100.0100, L500.2500 ####[facility] [address] [place], [address] Platelets (Bld) [#/Vol] 113 10*3/uL Low 150-450 [facility] Comment on above: Performed By: #### L 100.0100, L500.2500 ####[facility] [address] [place], [address] RBC (Bld) [#/Vol] 3.52 10*6/uL Low 4.6-6.2 [facility] Comment on above: Performed By: #### L 100.0100, L500.2500 ####[facility] [address] [place], [address] RDW SD 47.4 fl High 35.1-43.9 [facility] Comment on above: Performed By: #### L 100.0100, L500.2500 ####[facility] [address] [place], [address] WBC (Bld) [#/Vol] 11.2 10*3/uL High 4.4-11.0 [facility] Comment on above: Performed By: #### L 100.0100, L500.2500 ####[facility] [address] [place], [address] CVS/PCIREPORTon 12-02-2024 CVS/PCIREPORT Normal [facility] Carbon dioxide, total [Moles /volume] in Central venous bloodOrdered By: Rasheed Canela on 12-02-2024 CO2 [Moles/Vol] 20.5 mmol/L Low 21.0-32.0 [facility] Carbon dioxide, total [Moles /volume] in Central venous bloodOrdered By: Nickie Danielson on 12-02-2024 CO2 [Moles/Vol] 20.6 mmol/L Low 21.0-32.0 [facility] Chloride assayOrdered By: Afshin o Canela on 12-02-2024 Chloride [Moles/Vol] 96 mmol/L Low 98-108 [facility] Chloride assayOrdered By: Korina Danielson on 12-02-2024 Chloride [Moles/Vol] 99 mmol/L 98-108 [facility] Emergency Department Summary on 12-02-2024 Emergency Department Summary Normal [facility] Eosinophil percentageOrdered By: Rasheed Canela on 12-02-2024 Eosinophils/100 WBC (Bld) 0.8 % 0-5 [facility] Eosinophil percentageOrdered By: Nickie Danielson on 12-02-2024 Eosinophils/100 WBC (Bld) 0.7 % 0-5 [facility] Erythrocyte distribution wid th ratioOrdered By: Rasheed Canela on 12-02-2024 Erythrocyte distribution width (RBC) [Ratio] 14.1 % 11.6-14.6 [facility] Erythrocyte distribution wid th ratioOrdered By: Nickie Danielson on 12-02-2024 Erythrocyte distribution width (RBC) [Ratio] 14.4 % 11.6-14.6 [facility] Erythrocyte distribution wid th standard deviationOrdered By: Rasheed Canela on 12-02-2024 Erythrocyte distribution width (RBC) [Ratio] 45.8 fl High 35.1-43.9 [facility] Erythrocyte distribution wid th standard deviationOrdered By: Nickie Danielson on 12-02-2024 Erythrocyte distribution width (RBC) [Ratio] 47.4 fl High 35.1-43.9 [facility] Glomerular filtration rate ( GFR) estimation/1.73 sq m using serum, plasma, or whole bOrdered By: Rasheed Canela on 12-02-2024 GFR/1.73 sq M.predicted among non-blacks MDRD (S/P/Bld) [Vol rate/Area] 21 mL/min/{1.73_m2} Low >60 [facility] Glomerular filtration rate ( GFR) estimation/1.73 sq m using serum, plasma, or whole bOrdered By: Nickie Danielson on 12-02-2024 GFR/1.73 sq M.predicted among non-blacks MDRD (S/P/Bld) [Vol rate/Area] 21 mL/min/{1.73_m2} Low >60 [facility] Gl[facility] deOrdered By: Nickie Danielson on 12-02-2024 Glucose [Mass/Vol] 200 mg/dL High 74-106 [facility] Glucose [Mass/Vol] 129 mg/dL High 74-106 [facility] H AND P Exam - Hospitaliston 12-02-2024 H&P Exam - Hospitalist Normal [facility] Hematocrit Auto (Bld) [Volum e fraction]Ordered By: Rasheed Canela on 12-02-2024 Hematocrit (Bld) [Volume fraction] 34.1 % Low 40-54 [facility] Hematocrit Auto (Bld) [Volum e fraction]Ordered By: Nickie Danielson on 12-02-2024 Hematocrit (Bld) [Volume fraction] 32.1 % Low 40-54 [facility] Hemoglobin measurementOrdere d By: Rasheed Canela on 12-02-2024 Hemoglobin (Bld) [Mass/Vol] 11.1 g/dL Low 13.0-16.5 [facility] Hemoglobin measurementOrdere d By: Nickie Danielson on 12-02-2024 Hemoglobin (Bld) [Mass/Vol] 10.4 g/dL Low 13.0-16.5 [facility] Immature granulocytes/100 WB C Auto (Bld)Ordered By: Rasheed Canela on 12-02-2024 Immature granulocytes/100 WBC (Bld) 0.600 % 0.0-0.9 [facility] Immature granulocytes/100 WB C Auto (Bld)Ordered By: Nickie Danielson on 12-02-2024 Immature granulocytes/100 WBC (Bld) 0.700 % 0.0-0.9 [facility] L501.4021on 12-02-2024 Trop T High Sen > 58419 Invalid Interpretation Code <=22 [facility] Comment on above: Result Comment: Crit ical Result(s) Called at: 2120 by: MOISE MENDIOLA??Results read back by same. Performed By: #### L 300.3900, L300.4310, L501.4021, L500.2500, L100.0100 ####[facility] [address] [place], [address] MCV (mean corpuscular volume ) determinationOrdered By: Rasheed Canela on 12-02-2024 MCV (RBC) [Entitic vol] 89.5 fL 80-94 [facility] MCV (mean corpuscular volume ) determinationOrdered By: Nickie Danielson on 12-02-2024 MCV (RBC) [Entitic vol] 91.2 fL 80-94 [facility] MR/CON.PCM.NEon 12-02-2024 MR/CON.PCM.NE Normal [facility] MRA Head ONLY without Contra ston 12-02-2024 MRA Head ONLY without Contrast Normal [facility] MRA Neck without Contraston 12-02-2024 MRA Neck without Contrast Normal [facility] Magnetic resonance imaging r eportOrdered By: Nghia Waters on 12-02-2024 Study report [facility] Mean corpuscular hemoglobin (MCH) determinationOrdered By: Rasheed Canela on 12-02-2024 MCH (RBC) [Entitic mass] 29.1 pg 27.0-32.0 [facility] Mean corpuscular hemoglobin (MCH) determinationOrdered By: Nickie Danielson on 12-02-2024 MCH (RBC) [Entitic mass] 29.5 pg 27.0-32.0 [facility] Monocyte percentageOrdered B y: Rasheed Canela on 12-02-2024 Monocytes/100 WBC (Bld) 12.7 % High 0-10 [facility] Monocyte percentageOrdered B y: Nickie Danielson on 12-02-2024 Monocytes/100 WBC (Bld) 12.0 % High 0-10 [facility] Neutrophil percentageOrdered By: Rasheed Canela on 12-02-2024 Neutrophils/100 WBC (Bld) 76.7 % High 47-70 [facility] Neutrophil percentageOrdered By: Nickie Danielson on 12-02-2024 Neutrophils/100 WBC (Bld) 78.9 % High 47-70 [facility] Partial Thromboplast Timeon 12-02-2024 aPTT Coag (Bld) [Time] 31.6 s Normal 24.1-36.2 [facility] Comment on above: Performed By: #### L 300.3900, L300.4310, L501.4021, L500.2500, L100.0100 ####[facility] [address] [place], [address] Platelet countOrdered By: Afshin julian Burriso on 12-02-2024 Platelets (Bld) [#/Vol] 134 10*3/uL Low 150-450 [facility] Platelet countOrdered By: Korina Danielson on 12-02-2024 Platelets (Bld) [#/Vol] 113 10*3/uL Low 150-450 [facility] Platelet estimateOrdered By: Rasheed Canela on 12-02-2024 Platelets LM Ql (Bld) SLT DEC ADEQ [facility] Potassium measurement (mass/ volume)Ordered By: Rasheed Canela on 12-02-2024 Potassium (Unsp spec) [Mass/Vol] 4.6 mmol/L 3.3-5.1 [facility] Potassium measurement (mass/ volume)Ordered By: Nickie Danielson on 12-02-2024 Potassium (Unsp spec) [Mass/Vol] 4.8 mmol/L 3.3-5.1 [facility] Prothrombin Time w/INRon INR Coag (PPP) [Relative time] 1.1 {INR} Normal [facility] Comment on above: Performed By: #### L 300.3900, L300.4310, L501.4021, L500.2500, L100.0100 ####[facility] [address] [place], [place], [id number] PT Coag (PPP) [Time] 14.6 s Normal 11.7-14.9 [facility] Comment on above: Performed By: #### L 300.3900, L300.4310, L501.4021, L500.2500, L100.0100 ####[facility] [address] [place], [address] Prothrombin timeOrdered By: Rasheed Canela on 12-02-2024 PT Coag (PPP) [Time] 14.6 s 11.7-14.9 [facility] RBC Auto (Bld) [#/Vol]Ordere d By: Rasheed Canela on 12-02-2024 RBC (Bld) [#/Vol] 3.81 10*6/uL Low 4.6-6.2 [facility] RBC Auto (Bld) [#/Vol]Ordere d By: Nickie Danielson on 12-02-2024 RBC (Bld) [#/Vol] 3.52 10*6/uL Low 4.6-6.2 [facility] Serum creatinine measurement (mass/volume)Ordered By: Rasheed Canela on 12-02-2024 Creatinine [Mass/Vol] 2.90 mg/dL High 0.70-1.20 [facility] Serum creatinine measurement (mass/volume)Ordered By: Nickie Danielson on 12-02-2024 Creatinine [Mass/Vol] 2.93 mg/dL High 0.70-1.20 [facility] Serum glucose measurement (m ass/volume)Ordered By: Rasheed Canela on 12-02-2024 Glucose [Mass/Vol] 175 mg/dL High 70- [facility] Serum glucose measurement (m ass/volume)Ordered By: Nickie Danielson on 12-02-2024 Glucose [Mass/Vol] 138 mg/dL High 70-99 [facility] Serum or plasma calcium francine urement (mass/volume)Ordered By: Rasheed Canela on 12-02-2024 Calcium [Mass/Vol] 9.1 mg/dL 7.6-11.0 [facility] Serum or plasma calcium francine urement (mass/volume)Ordered By: Nickie Danielson on 12-02-2024 Calcium [Mass/Vol] 9.3 mg/dL 7.6-11.0 [facility] Serum or plasma urea nitroge n measurement (mass/volume)Ordered By: Rasheed Canela on 12-02-2024 Urea nitrogen [Mass/Vol] 52 mg/dL High 08-19 [facility] Serum or plasma urea nitroge n measurement (mass/volume)Ordered By: Nickie Danielson on 12-02-2024 Urea nitrogen [Mass/Vol] 50 mg/dL High 08-19 [facility] Sodium levelOrdered By: Rasheed Canela on 12-02-2024 Sodium [Moles/Vol] 131 mmol/L Low 133-145 [facility] Sodium levelOrdered By: Johanna Danielson on 12-02-2024 Sodium [Moles/Vol] 133 mmol/L 133-145 [facility] Troponin T.cardiac [Mass/vol ume] in Serum or Plasma by High sensitivity methodOrdered By: Rasheed Canela on 12-02-2024 Troponin T.cardiac High sensitivity method [Mass/Vol] > 12614 ng/L High <22 [facility] Troponin T.cardiac High sensitivity method [Mass/Vol] > 46346 ng/L High <22 [facility] White blood cell (WBC) count Ordered By: Rasheed Canela on 12-02-2024 WBC (Bld) [#/Vol] 12.7 10*3/uL High 4.4-11.0 [facility] White blood cell (WBC) count Ordered By: Nickie Danielson on 12-02-2024 WBC (Bld) [#/Vol] 11.2 10*3/uL High 4.4-11.0 [facility] 12 Lead EKGon 12-01-2024 12 Lead EKG Normal [facility] Bedside Glucoseon 12-01-2024 FINGERSTICK GLU 148 mg/dL High 74-106 [facility] Comment on above: Result Comment: WILDA BARROSO OF PATIENT CARE PER NURSING PROTOCOL Performed By: #### L 501.080 ####[facility] [address] [place], [address] FINGERSTICK GLU 203 mg/dL High 74-106 [facility] Comment on above: Result Comment: WILDA GEMENT OF PATIENT CARE PER NURSING PROTOCOL Performed By: #### L 501.080 ####[facility] [address] [place], [address] FINGERSTICK GLU 153 mg/dL High 74-106 [facility] Comment on above: Result Comment: WILDA GEMENT OF PATIENT CARE PER NURSING PROTOCOL Performed By: #### L 501.080 ####[facility] [address] [place], [address] FINGERSTICK GLU 187 mg/dL High 74-106 [facility] Comment on above: Result Comment: WILDA GEMENT OF PATIENT CARE PER NURSING PROTOCOL Performed By: #### L 501.080 ####[facility] [address] [place], [address] FINGERSTICK GLU 223 mg/dL High 74-106 [facility] Comment on above: Result Comment: WILDA GEMENT OF PATIENT CARE PER NURSING PROTOCOL Performed By: #### L 501.080 ####[facility] [address] [place], [address] Bilirubin, totalOrdered By: Jose Hay on 12-01-2024 Bilirubin [Mass/Vol] 1.07 mg/dL 0.00-1.30 [facility] CBC-Complete Blood Cnt No Di ffon 12-01-2024 Erythrocyte distribution width (RBC) [Ratio] 14.0 % Normal 11.6-14.6 [facility] Comment on above: Performed By: #### L 100.0500, L500.4050 ####[facility] [address] [place], [address] Hematocrit (Bld) [Volume fraction] 33.2 % Low 40-54 [facility] Comment on above: Performed By: #### L 100.0500, L500.4050 ####[facility] [address] [place], [address] Hemoglobin (Bld) [Mass/Vol] 10.8 g/dL Low 13.0-16.5 [facility] Comment on above: Performed By: #### L 100.0500, L500.4050 ####[facility] [address] [place], [address] MCH (RBC) [Entitic mass] 29.3 pg Normal 27.0-32.0 [facility] Comment on above: Performed By: #### L 100.0500, L500.4050 ####[facility] [address] [place], [address] MCHC (RBC) [Mass/Vol] 32.5 g/dL Normal 32-36 [facility] Comment on above: Performed By: #### L 100.0500, L500.4050 ####[facility] [address] [place], [address] MCV (RBC) [Entitic vol] 90.2 fL Normal 80-94 [facility] Comment on above: Performed By: #### L 100.0500, L500.4050 ####[facility] [address] [place], [address] Platelet mean volume (Bld) [Entitic vol] 12.7 fL High 6.2-12.0 [facility] Comment on above: Performed By: #### L 100.0500, L500.4050 ####[facility] [address] [place], [address] Platelets (Bld) [#/Vol] 142 10*3/uL Low 150-450 [facility] Comment on above: Performed By: #### L 100.0500, L500.4050 ####[facility] [address] [place], [address] RBC (Bld) [#/Vol] 3.68 10*6/uL Low 4.6-6.2 [facility] Comment on above: Performed By: #### L 100.0500, L500.4050 ####[facility] [address] [place], [address] RDW SD 45.8 fl High 35.1-43.9 [facility] Comment on above: Performed By: #### L 100.0500, L500.4050 ####[facility] [address] [place], [address] WBC (Bld) [#/Vol] 14.6 10*3/uL High 4.4-11.0 [facility] Comment on above: Performed By: #### L 100.0500, L500.4050 ####[facility] [address] [place], [address] Cardiac rehabilitation repor tOrdered By: Natacha Fermin on 12-01-2024 Study report [facility] Comprehensive Metabolic Prof ilon 12-01-2024 Albumin [Mass/Vol] 3.7 g/dL Normal 3.4-4.8 [facility] Comment on above: Performed By: #### L 100.0500, L500.4050 ####[facility] [address] [place], [address] Albumin/Globulin [Mass ratio] 1.5 {ratio} Normal 0.9-2.4 [facility] Comment on above: Performed By: #### L 100.0500, L500.4050 ####[facility] [address] [place], [address] ALK PHOS 82 U/L Normal 40-129 [facility] Comment on above: Performed By: #### L 100.0500, L500.4050 ####[facility] [address] [place], [address] ALT [Catalytic activity/Vol] 77 U/L High <=46 [facility] Comment on above: Performed By: #### L 100.0500, L500.4050 ####[facility] [address] [place], [address] AST [Catalytic activity/Vol] 497 U/L High <=37 [facility] Comment on above: Performed By: #### L 100.0500, L500.4050 ####[facility] [address] [place], [address] Bilirubin [Mass/Vol] 1.07 mg/dL Normal 0.00-1.30 [facility] Comment on above: Performed By: #### L 100.0500, L500.4050 ####[facility] [address] [place], [address] BUN/CRE 14.2 RATIO Normal 10-20 [facility] Comment on above: Performed By: #### L 100.0500, L500.4050 ####[facility] [address] [place], [address] Calcium [Mass/Vol] 8.7 mg/dL Normal 7.6-11.0 [facility] Comment on above: Performed By: #### L 100.0500, L500.4050 ####[facility] [address] [place], [address] Chloride [Moles/Vol] 100 mmol/L Normal 98-108 [facility] Comment on above: Performed By: #### L 100.0500, L500.4050 ####[facility] [address] [place], [address] CO2 [Moles/Vol] 20.3 mmol/L Low 21.0-32.0 [facility] Comment on above: Performed By: #### L 100.0500, L500.4050 ####[facility] [address] [place], [address] Creatinine [Mass/Vol] 3.16 mg/dL High 0.70-1.20 [facility] Comment on above: Performed By: #### L 100.0500, L500.4050 ####[facility] [address] [place], [address] ECRCL 23.23 ml/min Low 50-250 [facility] Comment on above: Performed By: #### L 100.0500, L500.4050 ####[facility] [address] [place], [address] GAP 14 Normal 5-15 [facility] Comment on above: Performed By: #### L 100.0500, L500.4050 ####[facility] [address] [place], [address] GFR/1.73 sq M.predicted among non-blacks MDRD (S/P/Bld) [Vol rate/Area] 19 mL/min/{1.73_m2} Low >60 [facility] Comment on above: Result Comment: mL/m in/1.73m2 CKD-EPI Creatinine Equation (2020) Performed By: #### L 100.0500, L500.4050 ####[facility] [address] [place], [address] Globulin (S) [Mass/Vol] 2.4 g/dL Normal 2.2-4.2 [facility] Comment on above: Performed By: #### L 100.0500, L500.4050 ####[facility] [address] [place], [address] Glucose [Mass/Vol] 157 mg/dL High 70-99 [facility] Comment on above: Performed By: #### L 100.0500, L500.4050 ####[facility] [address] [place], [address] Potassium [Moles/Vol] 5.0 mmol/L Normal 3.3-5.1 [facility] Comment on above: Performed By: #### L 100.0500, L500.4050 ####[facility] [address] [place], [address] Sodium [Moles/Vol] 134 mmol/L Normal 133-145 [facility] Comment on above: Performed By: #### L 100.0500, L500.4050 ####[facility] [address] [place], [address] T PROT 6.0 g/dL Normal 5.9-8.4 [facility] Comment on above: Performed By: #### L 100.0500, L500.4050 ####[facility] [address] [place], [address] Urea nitrogen [Mass/Vol] 45 mg/dL High 4-19 [facility] Comment on above: Performed By: #### L 100.0500, L500.4050 ####[facility] [address] [place], [address] Echo Limited w/Contraston Echo Limited w/Contrast Normal [facility] Electrocardiogram reportOrde red By: Marcin Araujo on 12-01-2024 EKG study [facility] Work Phone: HH, Hemoglobin AND Hematocri ton 12-01-2024 Hematocrit (Bld) [Volume fraction] 32.7 % Low 40-54 [facility] Comment on above: Performed By: #### L 100.0600 ####[facility] [address] [place], [address] Hemoglobin (Bld) [Mass/Vol] 10.6 g/dL Low 13.0-16.5 [facility] Comment on above: Performed By: #### L 100.0600 ####[facility] [address] [place], [address] Limited echocardiogram repor tOrdered By: Lance Espino on 12-01-2024 Study report [facility] Other Phone: No Panel InformationOrdered By: Jose Hay on 12-01-2024 497 U/L High <38 [facility] STROKE Brain/Head without Co nton 12-01-2024 STROKE Brain/Head without Cont Normal [facility] Serum globulin measurementOr dered By: Jose Hay on 12-01-2024 Globulin (S) [Mass/Vol] 2.4 g/dL 2.2-4.2 [facility] Serum or plasma alanine guerrero otransferase (ALT) measurementOrdered By: Jose Hay on 12-01-2024 ALT [Catalytic activity/Vol] 77 U/L High <47 [facility] Serum or plasma albumin francine urement (mass/volume)Ordered By: Jose Hay on 12-01-2024 Albumin [Mass/Vol] 3.7 g/dL 3.4-4.8 [facility] Serum or plasma albumin/glob ulin mass ratioOrdered By: Jose Hay on 12-01-2024 Albumin/Globulin [Mass ratio] 1.5 {ratio} 0.9-2.4 [facility] Serum or plasma alkaline bell sphatase measurementOrdered By: Jose Hay on 12-01-2024 ALP [Catalytic activity/Vol] 82 U/L 40-129 [facility] Total proteinOrdered By: Emmanuel Hay on 12-01-2024 Protein [Mass/Vol] 6.0 g/dL 5.9-8.4 [facility] 12 Lead EKGon 11-30-2024 12 Lead EKG Normal [facility] ACT Activated Clotting Timeo n 11-30-2024 ACTk CLOT TIME 187 sec High 74-137 [facility] Comment on above: Performed By: #### L 9100.0100 ####[facility] [address] [place], [place], [address] ACTk CLOT TIME 176 sec High 74-137 [facility] Comment on above: Performed By: #### L 9100.0100 ####[facility] [address] [place], [place], [id number] Absolute lymphocyte countOrd ered By: Isael Bernabe on 11-30-2024 Lymphocytes Auto (Unsp spec) [#/Vol] 1.93 10*3/uL 0.83-4.51 [facility] Activated partial thrombopla stin time (aPTT) in platelet poor plasma by coagulation aOrdered By: Isael Bernabe on 11-30-2024 aPTT Coag (PPP) [Time] 112.9 s High 24.1-36.2 [facility] Anion gap in Serum or Plasma Ordered By: Isael Bernabe on 11-30-2024 Anion gap [Moles/Vol] 19 mmol/L High 5-15 [facility] Automated lymphocyte count a s percentage of total leukocytesOrdered By: Isael Bernabe on 11-30-2024 Lymphocytes/100 WBC Auto (Unsp spec) 10.1 % Low 19-41 [facility] BUN/creatinine ratioOrdered By: Isael Bernabe on 11-30-2024 Urea nitrogen/Creatinine [Mass ratio] 14.4 mg/mg 10-20 [facility] Basic Metabolic Profile (BMP )on 11-30-2024 BUN/CRE 14.4 RATIO Normal -20 [facility] Comment on above: Performed By: #### L 501.4021, L300.3900, L300.4310, L500.2500, L100.0100 ####[facility] [address] [place], [address] Calcium [Mass/Vol] 9.5 mg/dL Normal 7.6-11.0 [facility] Comment on above: Performed By: #### L 501.4021, L300.3900, L300.4310, L500.2500, L100.0100 ####[facility] [address] [place], [address] Chloride [Moles/Vol] 98 mmol/L Normal 98-108 [facility] Comment on above: Performed By: #### L 501.4021, L300.3900, L300.4310, L500.2500, L100.0100 ####[facility] [address] [place], [address] CO2 [Moles/Vol] 18.3 mmol/L Low 21.0-32.0 [facility] Comment on above: Performed By: #### L 501.4021, L300.3900, L300.4310, L500.2500, L100.0100 ####[facility] [address] [place], [address] Creatinine [Mass/Vol] 3.10 mg/dL High 0.70-1.20 [facility] Comment on above: Performed By: #### L 501.4021, L300.3900, L300.4310, L500.2500, L100.0100 ####[facility] [address] [place], [address] GAP 19 High 5-15 [facility] Comment on above: Performed By: #### L 501.4021, L300.3900, L300.4310, L500.2500, L100.0100 ####[facility] [address] [place], [address] GFR/1.73 sq M.predicted among non-blacks MDRD (S/P/Bld) [Vol rate/Area] 20 mL/min/{1.73_m2} Low >60 [facility] Comment on above: Result Comment: mL/m in/1.73m2 CKD-EPI Creatinine Equation (2020) Performed By: #### L 501.4021, L300.3900, L300.4310, L500.2500, L100.0100 ####[facility] [address] [place], [address] Glucose [Mass/Vol] 328 mg/dL High 70-99 [facility] Comment on above: Performed By: #### L 501.4021, L300.3900, L300.4310, L500.2500, L100.0100 ####[facility] [address] [place], [address] Potassium [Moles/Vol] 4.4 mmol/L Normal 3.3-5.1 [facility] Comment on above: Performed By: #### L 501.4021, L300.3900, L300.4310, L500.2500, L100.0100 ####[facility] [address] [place], [address] Sodium [Moles/Vol] 135 mmol/L Normal 133-145 [facility] Comment on above: Performed By: #### L 501.4021, L300.3900, L300.4310, L500.2500, L100.0100 ####[facility] [address] [place], [address] Urea nitrogen [Mass/Vol] 45 mg/dL High 4-19 [facility] Comment on above: Performed By: #### L 501.4021, L300.3900, L300.4310, L500.2500, L100.0100 ####[facility] [address] [place], [address] Basophil percentageOrdered B y: Isael Bernabe on 11-30-2024 Basophils/100 WBC (Bld) 0.2 % 0-1 [facility] Bedside Glucoseon 11-30-2024 FINGERSTICK GLU 167 mg/dL High 74-106 [facility] Comment on above: Result Comment: WILDA BARROSO OF PATIENT CARE PER NURSING PROTOCOL Performed By: #### L 501.080 ####[facility] [address] [place], [address] CBC W/Diff, Automatedon 11-02 Absolute Lymph 1.93 X10 3/uL Normal 0.83-4.51 [facility] Comment on above: Performed By: #### L 501.4021, L300.3900, L300.4310, L500.2500, L100.0100 ####[facility] [address] [place], [address] Absolute Neut 15.5 X10 3/uL High 2.0-7.7 [facility] Comment on above: Performed By: #### L 501.4021, L300.3900, L300.4310, L500.2500, L100.0100 ####[facility] [address] [place], [address] Basophils/100 WBC (Bld) 0.2 % Normal 0-1 [facility] Comment on above: Performed By: #### L 501.4021, L300.3900, L300.4310, L500.2500, L100.0100 ####[facility] [address] [place], [address] Eosinophils/100 WBC (Bld) 0.4 % Normal 0-5 [facility] Comment on above: Performed By: #### L 501.4021, L300.3900, L300.4310, L500.2500, L100.0100 ####[facility] [address] [place], [address] Erythrocyte distribution width (RBC) [Ratio] 13.5 % Normal 11.6-14.6 [facility] Comment on above: Performed By: #### L 501.4021, L300.3900, L300.4310, L500.2500, L100.0100 ####[facility] [address] [place], [address] Hematocrit (Bld) [Volume fraction] 39.6 % Low 40-54 [facility] Comment on above: Performed By: #### L 501.4021, L300.3900, L300.4310, L500.2500, L100.0100 ####[facility] [address] [place], [address] Hemoglobin (Bld) [Mass/Vol] 12.5 g/dL Low 13.0-16.5 [facility] Comment on above: Performed By: #### L 501.4021, L300.3900, L300.4310, L500.2500, L100.0100 ####[facility] [address] [place], [address] IG% 0.700 Normal 0.0-0.9 [facility] Comment on above: Result Comment: IG% - Immature Granulocytes (promyelocytes, myelocytes andmetamyelocytes) > 1% indicates that a LEFT SHIFT is Present. Performed By: #### L 501.4021, L300.3900, L300.4310, L500.2500, L100.0100 ####[facility] [address] [place], [address] Lymphocytes/100 WBC (Bld) 10.1 % Low 19-41 [facility] Comment on above: Performed By: #### L 501.4021, L300.3900, L300.4310, L500.2500, L100.0100 ####[facility] [address] [place], [address] MCH (RBC) [Entitic mass] 29.3 pg Normal 27.0-32.0 [facility] Comment on above: Performed By: #### L 501.4021, L300.3900, L300.4310, L500.2500, L100.0100 ####[facility] [address] [place], [address] MCHC (RBC) [Mass/Vol] 31.6 g/dL Low 32-36 [facility] Comment on above: Performed By: #### L 501.4021, L300.3900, L300.4310, L500.2500, L100.0100 ####[facility] [address] [place], [address] MCV (RBC) [Entitic vol] 93.0 fL Normal 80-94 [facility] Comment on above: Performed By: #### L 501.4021, L300.3900, L300.4310, L500.2500, L100.0100 ####[facility] [address] [place], [address] Monocytes/100 WBC (Bld) 7.7 % Normal 0-10 [facility] Comment on above: Performed By: #### L 501.4021, L300.3900, L300.4310, L500.2500, L100.0100 ####[facility] [address] [place], [address] Neutrophils/100 WBC (Bld) 80.9 % High 47-70 [facility] Comment on above: Performed By: #### L 501.4021, L300.3900, L300.4310, L500.2500, L100.0100 ####[facility] [address] [place], [address] Nucleated RBC (Bld) [#/Vol] 0.1 10*3/uL Normal 0-5 [facility] Comment on above: Performed By: #### L 501.4021, L300.3900, L300.4310, L500.2500, L100.0100 ####[facility] [address] [place], [address] Platelet mean volume (Bld) [Entitic vol] 13.7 fL High 6.2-12.0 [facility] Comment on above: Performed By: #### L 501.4021, L300.3900, L300.4310, L500.2500, L100.0100 ####[facility] [address] [place], [address] Platelets (Bld) [#/Vol] 168 10*3/uL Normal 150-450 [facility] Comment on above: Performed By: #### L 501.4021, L300.3900, L300.4310, L500.2500, L100.0100 ####[facility] [address] [place], [address] RBC (Bld) [#/Vol] 4.26 10*6/uL Low 4.6-6.2 [facility] Comment on above: Performed By: #### L 501.4021, L300.3900, L300.4310, L500.2500, L100.0100 ####[facility] [address] [place], [address] RDW SD 45.9 fl High 35.1-43.9 [facility] Comment on above: Performed By: #### L 501.4021, L300.3900, L300.4310, L500.2500, L100.0100 ####[facility] [address] [place], [address] WBC (Bld) [#/Vol] 19.2 10*3/uL High 4.4-11.0 [facility] Comment on above: Performed By: #### L 501.4021, L300.3900, L300.4310, L500.2500, L100.0100 ####[facility] [address] [place], [address] CBC-Complete Blood Cnt No Di ffon 11-30-2024 HCT Normal 40-54 [facility] Comment on above: Result Comment: NO S PECIMEN COLLECTED Performed By: #### L 100.0500 ####[facility] [address] [place], [address] HGB Normal 13.0-16.5 [facility] Comment on above: Result Comment: NO S PECIMEN COLLECTED Performed By: #### L 100.0500 ####[facility] [address] [place], [address] MCH Normal 27.0-32.0 [facility] Comment on above: Result Comment: NO S PECIMEN COLLECTED Performed By: #### L 100.0500 ####[facility] [address] [place], [address] MCHC Normal 32-36 [facility] Comment on above: Result Comment: NO S PECIMEN COLLECTED Performed By: #### L 100.0500 ####[facility] [address] [place], [address] MCV Normal 80-94 [facility] Comment on above: Result Comment: NO S PECIMEN COLLECTED Performed By: #### L 100.0500 ####[facility] [address] [place], [address] PLT Normal 150-450 [facility] Comment on above: Result Comment: NO S PECIMEN COLLECTED Performed By: #### L 100.0500 ####[facility] [address] [place], [address] RBC Normal 4.6-6.2 [facility] Comment on above: Result Comment: NO S PECIMEN COLLECTED Performed By: #### L 100.0500 ####[facility] [address] [place], [address] RDW CV Normal 11.6-14.6 [facility] Comment on above: Result Comment: NO S PECIMEN COLLECTED Performed By: #### L 100.0500 ####[facility] [address] [place], [address] RDW SD Normal 35.1-43.9 [facility] Comment on above: Result Comment: NO S PECIMEN COLLECTED Performed By: #### L 100.0500 ####[facility] [address] [place], [address] WBC Normal 4.4-11.0 [facility] Comment on above: Result Comment: NO S PECIMEN COLLECTED Performed By: #### L 100.0500 ####[facility] [address] [place], [address] Carbon dioxide, total [Moles /volume] in Central venous bloodOrdered By: Isael Bernabe on 11-30-2024 CO2 [Moles/Vol] 18.3 mmol/L Low 21.0-32.0 [facility] Chest 1 View (Portable)on Chest 1 View (Portable) Normal [facility] Chloride assayOrdered By: Jaylen Bernabe on 11-30-2024 Chloride [Moles/Vol] 98 mmol/L 98-108 [facility] Consultation - Cardiologyon 11-30-2024 Consultation - Cardiology Normal [facility] Emergency Department Summary on 11-30-2024 Emergency Department Summary Normal [facility] Eosinophil percentageOrdered By: Isael Bernabe on 11-30-2024 Eosinophils/100 WBC (Bld) 0.4 % 0-5 [facility] Erythrocyte distribution wid th ratioOrdered By: Isael Bernabe on 11-30-2024 Erythrocyte distribution width (RBC) [Ratio] 13.5 % 11.6-14.6 [facility] Erythrocyte distribution wid th standard deviationOrdered By: Isael Bernabe on 11-30-2024 Erythrocyte distribution width (RBC) [Ratio] 45.9 fl High 35.1-43.9 [facility] Glomerular filtration rate ( GFR) estimation/1.73 sq m using serum, plasma, or whole bOrdered By: Isael Bernabe on 11-30-2024 GFR/1.73 sq M.predicted among non-blacks MDRD (S/P/Bld) [Vol rate/Area] 20 mL/min/{1.73_m2} Low >60 [facility] H AND P Exam - Hospitaliston 11-30-2024 H&P Exam - Hospitalist Normal [facility] Hematocrit Auto (Bld) [Volum e fraction]Ordered By: Isael Bernabe on 11-30-2024 Hematocrit (Bld) [Volume fraction] 39.6 % Low 40-54 [facility] Hemoglobin A1con 11-30-2024 HbA1c (Bld) [Mass fraction] 7.0 % High <=5.6 [facility] Comment on above: Result Comment: Norm al < 5.7 % Prediabetic 5.7 - 6.4 % Diabetic >or= 6.5 % Please note range changes. Performed By: #### L 501.9985 ####[facility] [address] [place], [place], [id number] Hemoglobin A1c percentageOrd ered By: Abraham rohit on 11-30-2024 HbA1c (Bld) [Mass fraction] 7.0 % High <5.7 [facility] Hemoglobin measurementOrdere d By: Isael Bernabe on 11-30-2024 Hemoglobin (Bld) [Mass/Vol] 12.5 g/dL Low 13.0-16.5 [facility] Immature granulocytes/100 WB C Auto (Bld)Ordered By: Isael Bernabe on 11-30-2024 Immature granulocytes/100 WBC (Bld) 0.700 % 0.0-0.9 [facility] L501.4021on 11-30-2024 Trop T High Sen 61 ng/L Invalid Interpretation Code <=22 [facility] Comment on above: Result Comment: Crit ical Result(s) Called at: 1621 by: MOISE MEDINA??Results read back by same. Performed By: #### L 501.4021, L300.3900, L300.4310, L500.2500, L100.0100 ####[facility] [address] [place], [place], [id number] MCV (mean corpuscular volume ) determinationOrdered By: Isael Bernabe on 11-30-2024 MCV (RBC) [Entitic vol] 93.0 fL 80-94 [facility] MR/QUALITYon 11-30-2024 MR/QUALITY Normal [facility] Mean corpuscular hemoglobin (MCH) determinationOrdered By: Isael Bernabe on 11-30-2024 MCH (RBC) [Entitic mass] 29.3 pg 27.0-32.0 [facility] Monocyte percentageOrdered B y: Isael Bernabe on 11-30-2024 Monocytes/100 WBC (Bld) 7.7 % 0-10 [facility] Neutrophil percentageOrdered By: Isael Bernabe on 11-30-2024 Neutrophils/100 WBC (Bld) 80.9 % High 47-70 [facility] Partial Thromboplast Timeon 11-30-2024 aPTT Coag (Bld) [Time] 112.9 s Invalid Interpretation Code 24.1-36.2 [facility] Comment on above: Result Comment: CRIT ICAL VALUE CALLED TO CAITLIN ARASH11/30/24 1720 Krysta Turcios.RESULTS READ BACK BY SAME. Performed By: #### L 501.4021, L300.3900, L300.4310, L500.2500, L100.0100 ####[facility] [address] [place], [address] Platelet countOrdered By: Jaylen Bernabe on 11-30-2024 Platelets (Bld) [#/Vol] 168 10*3/uL 150-450 [facility] Potassium measurement (mass/ volume)Ordered By: Isael Bernabe on 11-30-2024 Potassium (Unsp spec) [Mass/Vol] 4.4 mmol/L 3.3-5.1 [facility] Prothrombin Time w/INRon INR Coag (PPP) [Relative time] 1.3 {INR} Normal [facility] Comment on above: Performed By: #### L 501.4021, L300.3900, L300.4310, L500.2500, L100.0100 ####[facility] [address] [place], [address] PT Coag (PPP) [Time] 16.1 s High 11.7-14.9 [facility] Comment on above: Performed By: #### L 501.4021, L300.3900, L300.4310, L500.2500, L100.0100 ####[facility] [address] [place], [address] Prothrombin timeOrdered By: Isael Bernabe on 11-30-2024 PT Coag (PPP) [Time] 16.1 s High 11.7-14.9 [facility] RBC Auto (Bld) [#/Vol]Ordere d By: Isael Bernabe on 11-30-2024 RBC (Bld) [#/Vol] 4.26 10*6/uL Low 4.6-6.2 [facility] Serum creatinine measurement (mass/volume)Ordered By: Isael Bernabe on 11-30-2024 Creatinine [Mass/Vol] 3.10 mg/dL High 0.70-1.20 [facility] Serum glucose measurement (m ass/volume)Ordered By: Isael Bernabe on 11-30-2024 Glucose [Mass/Vol] 328 mg/dL High 70-99 [facility] Serum or plasma calcium francine urement (mass/volume)Ordered By: Isael Bernabe on 11-30-2024 Calcium [Mass/Vol] 9.5 mg/dL 7.6-11.0 [facility] Serum or plasma urea nitroge n measurement (mass/volume)Ordered By: Isael Bernabe on 11-30-2024 Urea nitrogen [Mass/Vol] 45 mg/dL High 4-19 [facility] Sodium levelOrdered By: Isael Bernabe on 11-30-2024 Sodium [Moles/Vol] 135 mmol/L 133-145 [facility] Troponin T HS 2 HRon 025 Trop T High Sen Normal <=22 [facility] Comment on above: Result Comment: Edy elled via OM: Ordered Performed By: #### L 499.0042 ####[facility] [address] [place], [place], [address] Troponin T HS 4 HRon 025 Trop T High Sen Normal <=22 [facility] Comment on above: Result Comment: Edy doughertyed via OM: Ordered Performed By: #### L 499.0043 ####[facility] [address] [place], [place], [address] Troponin T.cardiac [Mass/vol ume] in Serum or Plasma by High sensitivity methodOrdered By: Isael Bernabe on 11-30-2024 Troponin T.cardiac High sensitivity method [Mass/Vol] 61 ng/L High <22 [facility] White blood cell (WBC) count Ordered By: Isael Bernabe on 11-30-2024 WBC (Bld) [#/Vol] 19.2 10*3/uL High 4.4-11.0 [facility] ACT Activated Clotting Timeo n 11-28-2024 ACTk CLOT TIME 205 sec High 74-137 [facility] Comment on above: Performed By: #### L 9100.0100 ####[facility] [address] [place] [place], [address] ACTk CLOT TIME 227 sec High 74-137 [facility] Comment on above: Performed By: #### L 9100.0100 ####[facility] [address] [place], [address] Anion gap in Serum or Plasma Ordered By: Jose Hay on 11-28-2024 Anion gap [Moles/Vol] 13 mmol/L 5-15 [facility] BUN/creatinine ratioOrdered By: Jose Hay on 11-28-2024 Urea nitrogen/Creatinine [Mass ratio] 15.2 mg/mg 10-20 [facility] Bilirubin, totalOrdered By: Josemorro Hay on 11-28-2024 Bilirubin [Mass/Vol] 0.78 mg/dL 0.00-1.30 [facility] CBC-Complete Blood Cnt No Di ffon 11-28-2024 Erythrocyte distribution width (RBC) [Ratio] 13.6 % Normal 11.6-14.6 [facility] Comment on above: Performed By: #### L 100.0500, L500.4050 ####[facility] [address] [place], [address] Hematocrit (Bld) [Volume fraction] 35.3 % Low 40-54 [facility] Comment on above: Performed By: #### L 100.0500, L500.4050 ####[facility] [address] [place] [place], [address] Hemoglobin (Bld) [Mass/Vol] 11.3 g/dL Low 13.0-16.5 [facility] Comment on above: Performed By: #### L 100.0500, L500.4050 ####[facility] [address] [place], [address] MCH (RBC) [Entitic mass] 29.4 pg Normal 27.0-32.0 [facility] Comment on above: Performed By: #### L 100.0500, L500.4050 ####[facility] [address] [place], [address] MCHC (RBC) [Mass/Vol] 32.0 g/dL Normal 32-36 [facility] Comment on above: Performed By: #### L 100.0500, L500.4050 ####[facility] [address] [place], [address] MCV (RBC) [Entitic vol] 91.7 fL Normal 80-94 [facility] Comment on above: Performed By: #### L 100.0500, L500.4050 ####[facility] [address] [place], [address] Platelet mean volume (Bld) [Entitic vol] 12.6 fL High 6.2-12.0 [facility] Comment on above: Performed By: #### L 100.0500, L500.4050 ####[facility] [address] [place], [address] Platelets (Bld) [#/Vol] 108 10*3/uL Low 150-450 [facility] Comment on above: Performed By: #### L 100.0500, L500.4050 ####[facility] [address] [place], [address] RBC (Bld) [#/Vol] 3.85 10*6/uL Low 4.6-6.2 [facility] Comment on above: Performed By: #### L 100.0500, L500.4050 ####[facility] [address] [place], [address] RDW SD 46.1 fl High 35.1-43.9 [facility] Comment on above: Performed By: #### L 100.0500, L500.4050 ####[facility] [address] [place], [address] WBC (Bld) [#/Vol] 7.1 10*3/uL Normal 4.4-11.0 [facility] Comment on above: Performed By: #### L 100.0500, L500.4050 ####[facility] [address] [place], [address] Carbon dioxide, total [Moles /volume] in Central venous bloodOrdered By: Jose Hay on 11-28-2024 CO2 [Moles/Vol] 23.7 mmol/L 21.0-32.0 [facility] Chloride assayOrdered By: Harsh Hay on 11-28-2024 Chloride [Moles/Vol] 102 mmol/L 98-108 [facility] Comprehensive Metabolic Prof ilon 11-28-2024 Albumin [Mass/Vol] 3.8 g/dL Normal 3.4-4.8 [facility] Comment on above: Performed By: #### L 100.0500, L500.4050 ####[facility] [address] [place], [address] Albumin/Globulin [Mass ratio] 1.4 {ratio} Normal 0.9-2.4 [facility] Comment on above: Performed By: #### L 100.0500, L500.4050 ####[facility] [address] [place], [address] ALK PHOS 93 U/L Normal 40-129 [facility] Comment on above: Performed By: #### L 100.0500, L500.4050 ####[facility] [address] [place], [address] ALT [Catalytic activity/Vol] 27 U/L Normal <=46 [facility] Comment on above: Result Comment: Hemo lysis present, Results??could be affected.?? Performed By: #### L 100.0500, L500.4050 ####[facility] [address] [place], [address] AST [Catalytic activity/Vol] 33 U/L Normal <=37 [facility] Comment on above: Result Comment: Hemo lysis present, Results??could be affected.?? Performed By: #### L 100.0500, L500.4050 ####[facility] [address] [place], [address] Bilirubin [Mass/Vol] 0.78 mg/dL Normal 0.00-1.30 [facility] Comment on above: Performed By: #### L 100.0500, L500.4050 ####[facility] [address] [place], [address] BUN/CRE 15.2 RATIO Normal 10-20 [facility] Comment on above: Performed By: #### L 100.0500, L500.4050 ####[facility] [address] [place], [address] Calcium [Mass/Vol] 9.2 mg/dL Normal 7.6-11.0 [facility] Comment on above: Performed By: #### L 100.0500, L500.4050 ####[facility] [address] [place], [address] Chloride [Moles/Vol] 102 mmol/L Normal 98-108 [facility] Comment on above: Performed By: #### L 100.0500, L500.4050 ####[facility] [address] [place], [address] CO2 [Moles/Vol] 23.7 mmol/L Normal 21.0-32.0 [facility] Comment on above: Performed By: #### L 100.0500, L500.4050 ####[facility] [address] [place] [place], [address] Creatinine [Mass/Vol] 1.93 mg/dL High 0.70-1.20 [facility] Comment on above: Performed By: #### L 100.0500, L500.4050 ####[facility] [address] [place], [address] ECRCL 37.66 ml/min Low 50-250 [facility] Comment on above: Performed By: #### L 100.0500, L500.4050 ####[facility] [address] [place], [address] GAP 13 Normal 5-15 [facility] Comment on above: Performed By: #### L 100.0500, L500.4050 ####[facility] [address] [place], [address] GFR/1.73 sq M.predicted among non-blacks MDRD (S/P/Bld) [Vol rate/Area] 35 mL/min/{1.73_m2} Low >60 [facility] Comment on above: Result Comment: mL/m in/1.73m2 CKD-EPI Creatinine Equation (2020) Performed By: #### L 100.0500, L500.4050 ####[facility] [address] [place], [address] Globulin (S) [Mass/Vol] 2.8 g/dL Normal 2.2-4.2 [facility] Comment on above: Performed By: #### L 100.0500, L500.4050 ####[facility] [address] [place] [place], [address] Glucose [Mass/Vol] 130 mg/dL High 70-99 [facility] Comment on above: Performed By: #### L 100.0500, L500.4050 ####[facility] [address] [place], [address] Potassium [Moles/Vol] 4.4 mmol/L Normal 3.3-5.1 [facility] Comment on above: Result Comment: Hemo lysis present, Results??could be affected.?? Performed By: #### L 100.0500, L500.4050 ####[facility] [address] [place], [address] Sodium [Moles/Vol] 139 mmol/L Normal 133-145 [facility] Comment on above: Performed By: #### L 100.0500, L500.4050 ####[facility] [address] [place], [address] T PROT 6.6 g/dL Normal 5.9-8.4 [facility] Comment on above: Performed By: #### L 100.0500, L500.4050 ####[facility] [address] [place], [address] Urea nitrogen [Mass/Vol] 29 mg/dL High 4-19 [facility] Comment on above: Performed By: #### L 100.0500, L500.4050 ####[facility] [address] [place], [address] Erythrocyte distribution wid th ratioOrdered By: Jose Hay on 11-28-2024 Erythrocyte distribution width (RBC) [Ratio] 13.6 % 11.6-14.6 [facility] Erythrocyte distribution wid th standard deviationOrdered By: Jose Hay on 11-28-2024 Erythrocyte distribution width (RBC) [Ratio] 46.1 fl High 35.1-43.9 [facility] Glomerular filtration rate ( GFR) estimation/1.73 sq m using serum, plasma, or whole bOrdered By: Jose Hay on 11-28-2024 GFR/1.73 sq M.predicted among non-blacks MDRD (S/P/Bld) [Vol rate/Area] 35 mL/min/{1.73_m2} Low >60 [facility] Hematocrit Auto (Bld) [Volum e fraction]Ordered By: Jose Hay on 11-28-2024 Hematocrit (Bld) [Volume fraction] 35.3 % Low 40-54 [facility] Hemoglobin measurementOrdere d By: Jose Hay on 11-28-2024 Hemoglobin (Bld) [Mass/Vol] 11.3 g/dL Low 13.0-16.5 [facility] MCV (mean corpuscular volume ) determinationOrdered By: Jose Hay on 11-28-2024 MCV (RBC) [Entitic vol] 91.7 fL 80-94 [facility] Mean corpuscular hemoglobin (MCH) determinationOrdered By: Jose Hay on 11-28-2024 MCH (RBC) [Entitic mass] 29.4 pg 27.0-32.0 [facility] No Panel InformationOrdered By: Jose Hay on 11-28-2024 33 U/L <38 [facility] Platelet countOrdered By: Harsh Hay on 11-28-2024 Platelets (Bld) [#/Vol] 108 10*3/uL Low 150-450 [facility] Potassium measurement (mass/ volume)Ordered By: Jose Hay on 11-28-2024 Potassium (Unsp spec) [Mass/Vol] 4.4 mmol/L 3.3-5.1 [facility] RBC Auto (Bld) [#/Vol]Ordere d By: Jose Hay on 11-28-2024 RBC (Bld) [#/Vol] 3.85 10*6/uL Low 4.6-6.2 [facility] Serum creatinine measurement (mass/volume)Ordered By: Jose Hay on 11-28-2024 Creatinine [Mass/Vol] 1.93 mg/dL High 0.70-1.20 [facility] Serum globulin measurementOr dered By: Jose Hay on 11-28-2024 Globulin (S) [Mass/Vol] 2.8 g/dL 2.2-4.2 [facility] Serum glucose measurement (m ass/volume)Ordered By: Jose Hay on 11-28-2024 Glucose [Mass/Vol] 130 mg/dL High 70-99 [facility] Serum or plasma alanine guerrero otransferase (ALT) measurementOrdered By: Jose Hay on 11-28-2024 ALT [Catalytic activity/Vol] 27 U/L <47 [facility] Serum or plasma albumin francine urement (mass/volume)Ordered By: Jose Hay on 11-28-2024 Albumin [Mass/Vol] 3.8 g/dL 3.4-4.8 [facility] Serum or plasma albumin/glob ulin mass ratioOrdered By: Jose Hay on 11-28-2024 Albumin/Globulin [Mass ratio] 1.4 {ratio} 0.9-2.4 [facility] Serum or plasma alkaline bell sphatase measurementOrdered By: Jose Hay on 11-28-2024 ALP [Catalytic activity/Vol] 93 U/L 40-129 [facility] Serum or plasma calcium francine urement (mass/volume)Ordered By: Jose Hay on 11-28-2024 Calcium [Mass/Vol] 9.2 mg/dL 7.6-11.0 [facility] Serum or plasma urea nitroge n measurement (mass/volume)Ordered By: Jose Hay on 11-28-2024 Urea nitrogen [Mass/Vol] 29 mg/dL High 4-19 [facility] Sodium levelOrdered By: Ernst Hay on 11-28-2024 Sodium [Moles/Vol] 139 mmol/L 133-145 [facility] Total proteinOrdered By: Emmanuel Hay on 11-28-2024 Protein [Mass/Vol] 6.6 g/dL 5.9-8.4 [facility] White blood cell (WBC) count Ordered By: Jose Hay on 11-28-2024 WBC (Bld) [#/Vol] 7.1 10*3/uL 4.4-11.0 [facility] 12 Lead EKGon 11-27-2024 12 Lead EKG Normal [facility] Cardiac rehabilitation repor tOrdered By: Karrie Arceo on 11-27-2024 Study report [facility] Discharge Instructionon 11-01 Discharge Instruction Normal [facility] 12 Lead EKGon 11-26-2024 12 Lead EKG Normal [facility] Absolute lymphocyte countOrd ered By: Isael Bernabe on 11-26-2024 Lymphocytes Auto (Unsp spec) [#/Vol] 1.53 10*3/uL 0.83-4.51 [facility] Anion gap in Serum or Plasma Ordered By: Isael Bernabe on 11-26-2024 Anion gap [Moles/Vol] 15 mmol/L 5- [facility] Automated lymphocyte count a s percentage of total leukocytesOrdered By: Isael Bernabe on 11-26-2024 Lymphocytes/100 WBC Auto (Unsp spec) 16.7 % Low - [facility] BUN/creatinine ratioOrdered By: Isael Bernabe on 11-26-2024 Urea nitrogen/Creatinine [Mass ratio] 18.2 mg/mg - [facility] Basic Metabolic Profile (BMP )on 11-26-2024 BUN/CRE 18.2 RATIO Normal - [facility] Comment on above: Performed By: #### L 501.4021, L503.7505, L500.2500, L100.0100 ####[facility] [address] [place], [address] Calcium [Mass/Vol] 9.2 mg/dL Normal 7.6-11.0 [facility] Comment on above: Performed By: #### L 501.4021, L503.7505, L500.2500, L100.0100 ####[facility] [address] [place], [address] Chloride [Moles/Vol] 100 mmol/L Normal 98-108 [facility] Comment on above: Performed By: #### L 501.4021, L503.7505, L500.2500, L100.0100 ####[facility] [address] [place], [address] CO2 [Moles/Vol] 21.5 mmol/L Normal 21.0-32.0 [facility] Comment on above: Performed By: #### L 501.4021, L503.7505, L500.2500, L100.0100 ####[facility] [address] [place], [address] Creatinine [Mass/Vol] 2.34 mg/dL High 0.70-1.20 [facility] Comment on above: Performed By: #### L 501.4021, L503.7505, L500.2500, L100.0100 ####[facility] [address] [place], [address] ECRCL 31.97 ml/min Low 50-250 [facility] Comment on above: Performed By: #### L 501.4021, L503.7505, L500.2500, L100.0100 ####[facility] [address] [place], [address] GAP 15 Normal 5-15 [facility] Comment on above: Performed By: #### L 501.4021, L503.7505, L500.2500, L100.0100 ####[facility] [address] [place], [address] GFR/1.73 sq M.predicted among non-blacks MDRD (S/P/Bld) [Vol rate/Area] 28 mL/min/{1.73_m2} Low >60 [facility] Comment on above: Result Comment: mL/m in/1.73m2 CKD-EPI Creatinine Equation (2020) Performed By: #### L 501.4021, L503.7505, L500.2500, L100.0100 ####[facility] [address] [place], [address] Glucose [Mass/Vol] 275 mg/dL High 70-99 [facility] Comment on above: Performed By: #### L 501.4021, L503.7505, L500.2500, L100.0100 ####[facility] [address] [place], [address] Potassium [Moles/Vol] 4.4 mmol/L Normal 3.3-5.1 [facility] Comment on above: Performed By: #### L 501.4021, L503.7505, L500.2500, L100.0100 ####[facility] [address] [place], [address] Sodium [Moles/Vol] 137 mmol/L Normal 133-145 [facility] Comment on above: Performed By: #### L 501.4021, L503.7505, L500.2500, L100.0100 ####[facility] [address] [place], [address] Urea nitrogen [Mass/Vol] 43 mg/dL High 4-19 [facility] Comment on above: Performed By: #### L 501.4021, L503.7505, L500.2500, L100.0100 ####[facility] [address] [place], [address] Basophil percentageOrdered B y: Isael Bernabe on 11-26-2024 Basophils/100 WBC (Bld) 0.3 % 0-1 [facility] Brain/Head without Contrasto n 11-26-2024 Brain/Head without Contrast Normal [facility] CBC W/Diff, Automatedon 07- Absolute Lymph 1.53 X10 3/uL Normal 0.83-4.51 [facility] Comment on above: Performed By: #### L 501.4021, L503.7505, L500.2500, L100.0100 ####[facility] [address] [place], [address] Absolute Neut 6.6 X10 3/uL Normal 2.0-7.7 [facility] Comment on above: Performed By: #### L 501.4021, L503.7505, L500.2500, L100.0100 ####[facility] [address] [place], [address] Basophils/100 WBC (Bld) 0.3 % Normal 0-1 [facility] Comment on above: Performed By: #### L 501.4021, L503.7505, L500.2500, L100.0100 ####[facility] [address] [place], [address] Eosinophils/100 WBC (Bld) 1.3 % Normal 0-5 [facility] Comment on above: Performed By: #### L 501.4021, L503.7505, L500.2500, L100.0100 ####[facility] [address] [place], [address] Erythrocyte distribution width (RBC) [Ratio] 13.9 % Normal 11.6-14.6 [facility] Comment on above: Performed By: #### L 501.4021, L503.7505, L500.2500, L100.0100 ####[facility] [address] [place], [address] Hematocrit (Bld) [Volume fraction] 36.7 % Low 40-54 [facility] Comment on above: Performed By: #### L 501.4021, L503.7505, L500.2500, L100.0100 ####[facility] [address] [place], [address] Hemoglobin (Bld) [Mass/Vol] 11.8 g/dL Low 13.0-16.5 [facility] Comment on above: Performed By: #### L 501.4021, L503.7505, L500.2500, L100.0100 ####[facility] [address] [place], [address] IG% 0.400 Normal 0.0-0.9 [facility] Comment on above: Result Comment: IG% - Immature Granulocytes (promyelocytes, myelocytes andmetamyelocytes) > 1% indicates that a LEFT SHIFT is Present. Performed By: #### L 501.4021, L503.7505, L500.2500, L100.0100 ####[facility] [address] [place], [address] Lymphocytes/100 WBC (Bld) 16.7 % Low 19-41 [facility] Comment on above: Performed By: #### L 501.4021, L503.7505, L500.2500, L100.0100 ####[facility] [address] [place], [address] MCH (RBC) [Entitic mass] 29.2 pg Normal 27.0-32.0 [facility] Comment on above: Performed By: #### L 501.4021, L503.7505, L500.2500, L100.0100 ####[facility] [address] [place], [address] MCHC (RBC) [Mass/Vol] 32.2 g/dL Normal 32-36 [facility] Comment on above: Performed By: #### L 501.4021, L503.7505, L500.2500, L100.0100 ####[facility] [address] [place], [address] MCV (RBC) [Entitic vol] 90.8 fL Normal 80-94 [facility] Comment on above: Performed By: #### L 501.4021, L503.7505, L500.2500, L100.0100 ####[facility] [address] [place], [address] Monocytes/100 WBC (Bld) 9.5 % Normal 0-10 [facility] Comment on above: Performed By: #### L 501.4021, L503.7505, L500.2500, L100.0100 ####[facility] [address] [place], [address] Neutrophils/100 WBC (Bld) 71.8 % High 47-70 [facility] Comment on above: Performed By: #### L 501.4021, L503.7505, L500.2500, L100.0100 ####[facility] [address] [place], [address] Nucleated RBC (Bld) [#/Vol] 0 10*3/uL Normal 0-5 [facility] Comment on above: Performed By: #### L 501.4021, L503.7505, L500.2500, L100.0100 ####[facility] [address] [place], [address] Platelet mean volume (Bld) [Entitic vol] 12.8 fL High 6.2-12.0 [facility] Comment on above: Performed By: #### L 501.4021, L503.7505, L500.2500, L100.0100 ####[facility] [address] [place], [address] Platelets (Bld) [#/Vol] 132 10*3/uL Low 150-450 [facility] Comment on above: Performed By: #### L 501.4021, L503.7505, L500.2500, L100.0100 ####[facility] [address] [place], [address] RBC (Bld) [#/Vol] 4.04 10*6/uL Low 4.6-6.2 [facility] Comment on above: Performed By: #### L 501.4021, L503.7505, L500.2500, L100.0100 ####[facility] [address] [place], [address] RDW SD 46.6 fl High 35.1-43.9 [facility] Comment on above: Performed By: #### L 501.4021, L503.7505, L500.2500, L100.0100 ####[facility] [address] [place], [address] WBC (Bld) [#/Vol] 9.2 10*3/uL Normal 4.4-11.0 [facility] Comment on above: Performed By: #### L 501.4021, L503.7505, L500.2500, L100.0100 ####[facility] [address] [place], [address] Carbon dioxide, total [Moles /volume] in Central venous bloodOrdered By: Isael Bernabe on 11-26-2024 CO2 [Moles/Vol] 21.5 mmol/L 21.0-32.0 [facility] Chest 1 View (Portable)on Chest 1 View (Portable) Normal [facility] Chloride assayOrdered By: Jaylen Bernabe on 11-26-2024 Chloride [Moles/Vol] 100 mmol/L 98-108 [facility] Emergency Department Summary on 11-26-2024 Emergency Department Summary Normal [facility] Eosinophil percentageOrdered By: Isael Bernabe on 11-26-2024 Eosinophils/100 WBC (Bld) 1.3 % 0-5 [facility] Erythrocyte distribution wid th ratioOrdered By: Isael Bernabe on 11-26-2024 Erythrocyte distribution width (RBC) [Ratio] 13.9 % 11.6-14.6 [facility] Erythrocyte distribution wid th standard deviationOrdered By: Isael Bernabe on 11-26-2024 Erythrocyte distribution width (RBC) [Ratio] 46.6 fl High 35.1-43.9 [facility] Glomerular filtration rate ( GFR) estimation/1.73 sq m using serum, plasma, or whole bOrdered By: Isael Bernabe on 11-26-2024 GFR/1.73 sq M.predicted among non-blacks MDRD (S/P/Bld) [Vol rate/Area] 28 mL/min/{1.73_m2} Low >60 [facility] Hand Min 3 Viewson 07-27-202 5 Hand Min 3 Views Normal [facility] Hematocrit Auto (Bld) [Volum e fraction]Ordered By: Isael Bernabe on 11-26-2024 Hematocrit (Bld) [Volume fraction] 36.7 % Low 40-54 [facility] Hemoglobin measurementOrdere d By: Isael Bernabe on 11-26-2024 Hemoglobin (Bld) [Mass/Vol] 11.8 g/dL Low 13.0-16.5 [facility] Immature granulocytes/100 WB C Auto (Bld)Ordered By: Isael Bernabe on 11-26-2024 Immature granulocytes/100 WBC (Bld) 0.400 % 0.0-0.9 [facility] Knee 4 or More Viewson 11-26 Knee 4 or More Views Normal [facility] Knee 4 or More Views Normal [facility] L501.4021on 11-26-2024 Trop T High Sen 18 ng/L Normal <=22 [facility] Comment on above: Performed By: #### L 501.4021, L503.7505, L500.2500, L100.0100 ####[facility] [address] [place], [address] MCV (mean corpuscular volume ) determinationOrdered By: Isael Bernabe on 11-26-2024 MCV (RBC) [Entitic vol] 90.8 fL 80-94 [facility] Mean corpuscular hemoglobin (MCH) determinationOrdered By: Isael Bernabe on 11-26-2024 MCH (RBC) [Entitic mass] 29.2 pg 27.0-32.0 [facility] Monocyte percentageOrdered B y: Isael Bernabe on 11-26-2024 Monocytes/100 WBC (Bld) 9.5 % 0-10 [facility] Natriuretic peptide.B prohor efrem N-Terminal [Mass/volume] in Serum or PlasmaOrdered By: Isael Bernabe on 11-26-2024 Natriuretic peptide.B prohormone N-Terminal [Mass/Vol] 162 pg/mL <1800 [facility] Neutrophil percentageOrdered By: Isael Bernabe on 11-26-2024 Neutrophils/100 WBC (Bld) 71.8 % High 47-70 [facility] Platelet countOrdered By: Jaylen Bernabe on 11-26-2024 Platelets (Bld) [#/Vol] 132 10*3/uL Low 150-450 [facility] Potassium measurement (mass/ volume)Ordered By: Isael Bernabe on 11-26-2024 Potassium (Unsp spec) [Mass/Vol] 4.4 mmol/L 3.3-5.1 [facility] Pro- Brain NATRIURETIC PEPTI Sharon 11-26-2024 Natriuretic peptide B (Bld) [Mass/Vol] 162 pg/mL Normal <=1800 [facility] Comment on above: Result Comment: Hear t Failure Unlikely: < 300 pg/mLHeart Failure Likely< 50 Years: > 450 pg/mL50-75 Years: > 900 pg/mL>75 Years: > 1800 pg/mL Performed By: #### L 501.4021, L503.7505, L500.2500, L100.0100 ####[facility] [address] [place], [place], [address] RBC Auto (Bld) [#/Vol]Ordere d By: Isael Bernabe on 11-26-2024 RBC (Bld) [#/Vol] 4.04 10*6/uL Low 4.6-6.2 [facility] Serum creatinine measurement (mass/volume)Ordered By: Isael Bernabe on 11-26-2024 Creatinine [Mass/Vol] 2.34 mg/dL High 0.70-1.20 [facility] Serum glucose measurement (m ass/volume)Ordered By: Isael Bernabe on 11-26-2024 Glucose [Mass/Vol] 275 mg/dL High 70-99 [facility] Serum or plasma calcium francine urement (mass/volume)Ordered By: Isael Bernabe on 11-26-2024 Calcium [Mass/Vol] 9.2 mg/dL 7.6-11.0 [facility] Serum or plasma urea nitroge n measurement (mass/volume)Ordered By: Isael Bernabe on 11-26-2024 Urea nitrogen [Mass/Vol] 43 mg/dL High 4-19 [facility] Sodium levelOrdered By: Isael Bernabe on 11-26-2024 Sodium [Moles/Vol] 137 mmol/L 133-145 [facility] Spine Cervical without Contr ason 11-26-2024 Spine Cervical without Contras Normal [facility] Troponin T HS 2 HRon 025 Trop T High Sen 20 ng/L Normal <=22 [facility] Comment on above: Performed By: #### L 499.0042 ####[facility] [address] [place], [place], [id number] Troponin T HS 4 HRon 025 Trop T High Sen Normal <=22 [facility] Comment on above: Result Comment: Canc elled via OM: Order cancelled - Patient discharged Performed By: #### L 499.0043 ####[facility] [address] [place], [place], [id number] Troponin T.cardiac [Mass/vol ume] in Serum or Plasma by High sensitivity methodOrdered By: Isael Bernabe on 11-26-2024 Troponin T.cardiac High sensitivity method [Mass/Vol] 20 ng/L <22 [facility] Troponin T.cardiac High sensitivity method [Mass/Vol] 18 ng/L <22 [facility] White blood cell (WBC) count Ordered By: Isael Bernabe on 11-26-2024 WBC (Bld) [#/Vol] 9.2 10*3/uL 4.4-11.0 [facility] Absolute lymphocyte countOrd ered By: Gustabo Pérez on 11-22-2024 Lymphocytes Auto (Unsp spec) [#/Vol] 1.37 10*3/uL 0.83-4.51 [facility] Anion gap in Serum or Plasma Ordered By: Gustabo Pérez on 11-22-2024 Anion gap [Moles/Vol] 15 mmol/L 5-15 [facility] Automated lymphocyte count a s percentage of total leukocytesOrdered By: Gustabo Pérez on 11-22-2024 Lymphocytes/100 WBC Auto (Unsp spec) 16.1 % Low 19-41 [facility] BUN/creatinine ratioOrdered By: Gustabo Pérez on 11-22-2024 Urea nitrogen/Creatinine [Mass ratio] 15.6 mg/mg 10-20 [facility] Basic Metabolic Profile (BMP )on 11-22-2024 BUN/CRE 15.6 RATIO Normal - [facility] Comment on above: Performed By: #### L 100.0100, L500.2500, L503.7505 ####[facility] [address] [place], [address] Calcium [Mass/Vol] 9.1 mg/dL Normal 7.6-11.0 [facility] Comment on above: Performed By: #### L 100.0100, L500.2500, L503.7505 ####[facility] [address] [place], [address] Chloride [Moles/Vol] 102 mmol/L Normal 98-108 [facility] Comment on above: Performed By: #### L 100.0100, L500.2500, L503.7505 ####[facility] [address] [place], [address] CO2 [Moles/Vol] 21.6 mmol/L Normal 21.0-32.0 [facility] Comment on above: Performed By: #### L 100.0100, L500.2500, L503.7505 ####[facility] [address] [place], [address] Creatinine [Mass/Vol] 2.51 mg/dL High 0.70-1.20 [facility] Comment on above: Performed By: #### L 100.0100, L500.2500, L503.7505 ####[facility] [address] [place], [address] GAP 15 Normal 5-15 [facility] Comment on above: Performed By: #### L 100.0100, L500.2500, L503.7505 ####[facility] [address] [place], [address] GFR/1.73 sq M.predicted among non-blacks MDRD (S/P/Bld) [Vol rate/Area] 25 mL/min/{1.73_m2} Low >60 [facility] Comment on above: Result Comment: mL/m in/1.73m2 CKD-EPI Creatinine Equation (2020) Performed By: #### L 100.0100, L500.2500, L503.7505 ####[facility] [address] [place], [address] Glucose [Mass/Vol] 262 mg/dL High 70-99 [facility] Comment on above: Performed By: #### L 100.0100, L500.2500, L503.7505 ####[facility] [address] [place], [address] Potassium [Moles/Vol] 4.8 mmol/L Normal 3.3-5.1 [facility] Comment on above: Performed By: #### L 100.0100, L500.2500, L503.7505 ####[facility] [address] [place], [address] Sodium [Moles/Vol] 139 mmol/L Normal 133-145 [facility] Comment on above: Performed By: #### L 100.0100, L500.2500, L503.7505 ####[facility] [address] [place], [address] Urea nitrogen [Mass/Vol] 39 mg/dL High 4-19 [facility] Comment on above: Performed By: #### L 100.0100, L500.2500, L503.7505 ####[facility] [address] [place], [address] Basophil percentageOrdered B y: Gustabo Beto on 11-22-2024 Basophils/100 WBC (Bld) 0.4 % 0-1 [facility] CBC W/Diff, Automatedon 11-01 Absolute Lymph 1.37 X10 3/uL Normal 0.83-4.51 [facility] Comment on above: Performed By: #### L 100.0100, L500.2500, L503.7505 ####[facility] [address] [place], [address] Absolute Neut 6.2 X10 3/uL Normal 2.0-7.7 [facility] Comment on above: Performed By: #### L 100.0100, L500.2500, L503.7505 ####[facility] [address] [place], [address] Basophils/100 WBC (Bld) 0.4 % Normal 0-1 [facility] Comment on above: Performed By: #### L 100.0100, L500.2500, L503.7505 ####[facility] [address] [place], [address] Eosinophils/100 WBC (Bld) 1.5 % Normal 0-5 [facility] Comment on above: Performed By: #### L 100.0100, L500.2500, L503.7505 ####[facility] [address] [place], [address] Erythrocyte distribution width (RBC) [Ratio] 13.8 % Normal 11.6-14.6 [facility] Comment on above: Performed By: #### L 100.0100, L500.2500, L503.7505 ####[facility] [address] [place], [address] Hematocrit (Bld) [Volume fraction] 36.5 % Low 40-54 [facility] Comment on above: Performed By: #### L 100.0100, L500.2500, L503.7505 ####[facility] [address] [place], [address] Hemoglobin (Bld) [Mass/Vol] 11.8 g/dL Low 13.0-16.5 [facility] Comment on above: Performed By: #### L 100.0100, L500.2500, L503.7505 ####[facility] [address] [place], [address] IG% 0.500 Normal 0.0-0.9 [facility] Comment on above: Result Comment: IG% - Immature Granulocytes (promyelocytes, myelocytes andmetamyelocytes) > 1% indicates that a LEFT SHIFT is Present. Performed By: #### L 100.0100, L500.2500, L503.7505 ####[facility] [address] [place], [address] Lymphocytes/100 WBC (Bld) 16.1 % Low 19-41 [facility] Comment on above: Performed By: #### L 100.0100, L500.2500, L503.7505 ####[facility] [address] [place], [address] MCH (RBC) [Entitic mass] 29.6 pg Normal 27.0-32.0 [facility] Comment on above: Performed By: #### L 100.0100, L500.2500, L503.7505 ####[facility] [address] [place], [address] MCHC (RBC) [Mass/Vol] 32.3 g/dL Normal 32-36 [facility] Comment on above: Performed By: #### L 100.0100, L500.2500, L503.7505 ####[facility] [address] [place], [address] MCV (RBC) [Entitic vol] 91.7 fL Normal 80-94 [facility] Comment on above: Performed By: #### L 100.0100, L500.2500, L503.7505 ####[facility] [address] [place], [address] Monocytes/100 WBC (Bld) 9.0 % Normal 0-10 [facility] Comment on above: Performed By: #### L 100.0100, L500.2500, L503.7505 ####[facility] [address] [place], [address] Neutrophils/100 WBC (Bld) 72.5 % High 47-70 [facility] Comment on above: Performed By: #### L 100.0100, L500.2500, L503.7505 ####[facility] [address] [place], [address] Nucleated RBC (Bld) [#/Vol] 0 10*3/uL Normal 0-5 [facility] Comment on above: Performed By: #### L 100.0100, L500.2500, L503.7505 ####[facility] [address] [place], [address] Platelet mean volume (Bld) [Entitic vol] 13.0 fL High 6.2-12.0 [facility] Comment on above: Performed By: #### L 100.0100, L500.2500, L503.7505 ####[facility] [address] [place], [address] Platelets (Bld) [#/Vol] 148 10*3/uL Low 150-450 [facility] Comment on above: Performed By: #### L 100.0100, L500.2500, L503.7505 ####[facility] [address] [place], [address] RBC (Bld) [#/Vol] 3.98 10*6/uL Low 4.6-6.2 [facility] Comment on above: Performed By: #### L 100.0100, L500.2500, L503.7505 ####[facility] [address] [place], [address] RDW SD 47.0 fl High 35.1-43.9 [facility] Comment on above: Performed By: #### L 100.0100, L500.2500, L503.7505 ####[facility] [address] [place], [address] WBC (Bld) [#/Vol] 8.5 10*3/uL Normal 4.4-11.0 [facility] Comment on above: Performed By: #### L 100.0100, L500.2500, L503.7505 ####[facility] [address] [place], [address] Carbon dioxide, total [Moles /volume] in Central venous bloodOrdered By: Gustabo Pérez on 11-22-2024 CO2 [Moles/Vol] 21.6 mmol/L 21.0-32.0 [facility] Cardiology Visit Reporton Cardiology Visit Report Normal [facility] Chest PA and Lateralon 11-22 Chest PA and Lateral Normal [facility] Chloride assayOrdered By: Lydia Pérez on 11-22-2024 Chloride [Moles/Vol] 102 mmol/L 98-108 [facility] Eosinophil percentageOrdered By: Gustabo Pérez on 11-22-2024 Eosinophils/100 WBC (Bld) 1.5 % 0-5 [facility] Erythrocyte distribution wid th ratioOrdered By: Gustabo Pérez on 11-22-2024 Erythrocyte distribution width (RBC) [Ratio] 13.8 % 11.6-14.6 [facility] Erythrocyte distribution wid th standard deviationOrdered By: Gustabo Pérez on 11-22-2024 Erythrocyte distribution width (RBC) [Ratio] 47.0 fl High 35.1-43.9 [facility] Glomerular filtration rate ( GFR) estimation/1.73 sq m using serum, plasma, or whole bOrdered By: Gustabo Pérez on 11-22-2024 GFR/1.73 sq M.predicted among non-blacks MDRD (S/P/Bld) [Vol rate/Area] 25 mL/min/{1.73_m2} Low >60 [facility] Hematocrit Auto (Bld) [Volum e fraction]Ordered By: Gustabo Pérez on 11-22-2024 Hematocrit (Bld) [Volume fraction] 36.5 % Low 40-54 [facility] Hemoglobin measurementOrdere d By: Gustabo Pérez on 11-22-2024 Hemoglobin (Bld) [Mass/Vol] 11.8 g/dL Low 13.0-16.5 [facility] Immature granulocytes/100 WB C Auto (Bld)Ordered By: Gustabo Pérez on 11-22-2024 Immature granulocytes/100 WBC (Bld) 0.500 % 0.0-0.9 [facility] L503.7505on 11-22-2024 Natriuretic peptide B (Bld) [Mass/Vol] 188 pg/mL Normal <=1800 [facility] Comment on above: Result Comment: Hear t Failure Unlikely: < 300 pg/mLHeart Failure Likely< 50 Years: > 450 pg/mL50-75 Years: > 900 pg/mL>75 Years: > 1800 pg/mL Performed By: #### L 100.0100, L500.2500, L503.7505 ####[facility] [address] [place], [address] MCV (mean corpuscular volume ) determinationOrdered By: Gustabo Pérez on 11-22-2024 MCV (RBC) [Entitic vol] 91.7 fL 80-94 [facility] Mean corpuscular hemoglobin (MCH) determinationOrdered By: Gustabo Pérez on 11-22-2024 MCH (RBC) [Entitic mass] 29.6 pg 27.0-32.0 [facility] Monocyte percentageOrdered B y: Gustabo Pérez on 11-22-2024 Monocytes/100 WBC (Bld) 9.0 % 0-10 [facility] Natriuretic peptide.B prohor efrem N-Terminal [Mass/volume] in Serum or PlasmaOrdered By: Gustabo Pérez on 11-22-2024 Natriuretic peptide.B prohormone N-Terminal [Mass/Vol] 188 pg/mL <1800 [facility] Neutrophil percentageOrdered By: Gustabo Pérez on 11-22-2024 Neutrophils/100 WBC (Bld) 72.5 % High 47-70 [facility] Platelet countOrdered By: Lydia Pérez on 11-22-2024 Platelets (Bld) [#/Vol] 148 10*3/uL Low 150-450 [facility] Potassium measurement (mass/ volume)Ordered By: Gustabo Pérez on 11-22-2024 Potassium (Unsp spec) [Mass/Vol] 4.8 mmol/L 3.3-5.1 [facility] RBC Auto (Bld) [#/Vol]Ordere d By: Gustabo Pérez on 11-22-2024 RBC (Bld) [#/Vol] 3.98 10*6/uL Low 4.6-6.2 [facility] Serum creatinine measurement (mass/volume)Ordered By: Gustabo Pérez on 11-22-2024 Creatinine [Mass/Vol] 2.51 mg/dL High 0.70-1.20 [facility] Serum glucose measurement (m ass/volume)Ordered By: Gustabo Pérez on 11-22-2024 Glucose [Mass/Vol] 262 mg/dL High 70-99 [facility] Serum or plasma calcium francine urement (mass/volume)Ordered By: Gustabo Pérez on 11-22-2024 Calcium [Mass/Vol] 9.1 mg/dL 7.6-11.0 [facility] Serum or plasma urea nitroge n measurement (mass/volume)Ordered By: Gustabo Pérez on 11-22-2024 Urea nitrogen [Mass/Vol] 39 mg/dL High 4-19 [facility] Sodium levelOrdered By: Gustabo Pérez on 11-22-2024 Sodium [Moles/Vol] 139 mmol/L 133-145 [facility] White blood cell (WBC) count Ordered By: Gustabo Pérez on 11-22-2024 WBC (Bld) [#/Vol] 8.5 10*3/uL 4.4-11.0 [facility] Shoulder min 2 Viewson 11-20 Shoulder min 2 Views Normal [facility] Cardiovascular stress test r eportOrdered By: Jose Hay on 11-13-2024 Study report [facility] [address] [place] [address] MR#: [id number] Acct: [id number] Name: ERIBERTO RICO Rep #: [id number] : 1945 79 From: Jose Hay MD Primary Care: Dr. Marycarmen Rodriguez, DO Statu s: REG CLI Referring Dr: Gustabo Pérez NP Sex: M C Stress Test Report Date: [...] compatible with previous inferior apical infarct. Mild kenyatta-infarct ischemia is noted. There is end systolic thickening and brightening. The gatedCardiolite study demonstrates myocardial thickening and inward wall motion. Thereported LVEF is 62%. Impression: 1. Pharmacologic (Regadenoson) evaluation 2. Peak pharmacologic ECG with no diagnostic ischemic changes. 3. There were no cardiac dysrhythmias pretest, during pharmacologic infusion, or recovery. 5. 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 6. The gated Cardiolite study reports an LVEF of 62%. This note was generated with ResiModelation software. It may contain incorrectwords, spelling, and punctuation that were not noted in checking the note beforesigning. 11/13/24 1539 Date _ Jose Hay MD CC: BLAST FURNACE OPERATOR-Jaziel Pérez; Dr. Marycarmen Rodriguez, DO ~ Date Dictated: 11/13/241536 Date Transcribed: 11/13/241536 Database Technician: HARSH Signed [facility] Work Phone: Stress Reporton 11-13-2024 Stress Report Normal [facility] Echo Complete W/ Contraston 11-10-2024 Echo Complete W/ Contrast Normal [facility] Echocardiogram study reportO rdered By: Lance Rodriguez on 11-10-2024 Study report [facility] [address] [place] [address] Echo Complete W/ Contrast 11/10/24 0920 MR#: [id number] Acct: [id number] Name: ERIBERTO RICO Rep #:[id number] : 1945 79 From: Lance Hooker Attending Dr: Gustabo Pérez, YRN Sta tus: REG CLI Ordering Dr: Maren Olivas Driss e: 11/10/24 Location: [facility] Sex: M C Admitted: Reason For Study [...] 1213 Date _ Lance Rodriguez MD CC: BLAST FURNACE OPERATORAgnieszka Pérez; Dr. Marycarmen Rodriguez, DO; Maren Olivas NP ~ Date Dictated: 11/10/24919 Date Transcribed: 11/10/241212 Database Technician: Signed [facility] Absolute lymphocyte countOrd ered By: Marycarmen Rodriguez on 11-09-2024 Lymphocytes Auto (Unsp spec) [#/Vol] 1.23 10*3/uL 0.83-4.51 [facility] Absolute neutrophil countOrd ered By: Marycarmen Rodriguez on 11-09-2024 Neutrophils (Bld) [#/Vol] 4.1 10*3/uL 2.0-7.7 [facility] Anion gap in Serum or Plasma Ordered By: Marycarmen Rodriguez on 11-09-2024 Anion gap [Moles/Vol] 14 mmol/L 09-14 [facility] Automated lymphocyte count a s percentage of total leukocytesOrdered By: Marycarmen Rodriguez on 11-09-2024 Lymphocytes/100 WBC Auto (Unsp spec) 19.9 % [facility] BUN/creatinine ratioOrdered By: Marycarmen Rodriguez on 11-09-2024 Urea nitrogen/Creatinine [Mass ratio] 19.7 mg/mg 02-19 [facility] Basic Metabolic Profile (BMP )on 11-09-2024 BUN/CRE 19.7 RATIO Normal 02-19 [facility] Comment on above: Performed By: #### L 503.7500, L500.2500, L100.0100 ####[facility] [address] [place], [address] Calcium [Mass/Vol] 9.3 mg/dL Normal 7.6-11.0 [facility] Comment on above: Performed By: #### L 503.7505, L500.2500, L100.0100 ####[facility] [address] [place], [address] Chloride [Moles/Vol] 102 mmol/L Normal 98-108 [facility] Comment on above: Performed By: #### L 503.7505, L500.2500, L100.0100 ####[facility] [address] [place], [address] CO2 [Moles/Vol] 22.5 mmol/L Normal 21.0-32.0 [facility] Comment on above: Performed By: #### L 503.7505, L500.2500, L100.0100 ####[facility] [address] [place], [address] Creatinine [Mass/Vol] 2.49 mg/dL High 0.70-1.20 [facility] Comment on above: Performed By: #### L 503.7505, L500.2500, L100.0100 ####[facility] [address] [place], [address] GAP 14 Normal 5-15 [facility] Comment on above: Performed By: #### L 503.7505, L500.2500, L100.0100 ####[facility] [address] [place], [address] GFR/1.73 sq M.predicted among non-blacks MDRD (S/P/Bld) [Vol rate/Area] 26 mL/min/{1.73_m2} Low >60 [facility] Comment on above: Result Comment: mL/m in/1.73m2 CKD-EPI Creatinine Equation (2020) Performed By: #### L 503.7505, L500.2500, L100.0100 ####[facility] [address] [place], [address] Glucose [Mass/Vol] 169 mg/dL High 70-99 [facility] Comment on above: Performed By: #### L 503.7505, L500.2500, L100.0100 ####[facility] [address] [place], [address] Potassium [Moles/Vol] 4.6 mmol/L Normal 3.3-5.1 [facility] Comment on above: Performed By: #### L 503.7505, L500.2500, L100.0100 ####[facility] [address] [place], [address] Sodium [Moles/Vol] 139 mmol/L Normal 133-145 [facility] Comment on above: Performed By: #### L 503.7505, L500.2500, L100.0100 ####[facility] [address] [place], [address] Urea nitrogen [Mass/Vol] 49 mg/dL High 4-19 [facility] Comment on above: Performed By: #### L 503.7505, L500.2500, L100.0100 ####[facility] [address] [place], [address] Basophil percentageOrdered B y: Marycarmen Rodriguez on 11-09-2024 Basophils/100 WBC (Bld) 0.3 % 0- [facility] CBC W/Diff, Automatedon 10-31 Absolute Lymph 1.23 X10 3/uL Normal 0.83-4.51 [facility] Comment on above: Performed By: #### L 503.7505, L500.2500, L100.0100 ####[facility] [address] [place], [address] Absolute Neut 4.1 X10 3/uL Normal 2.0-7.7 [facility] Comment on above: Performed By: #### L 503.7505, L500.2500, L100.0100 ####[facility] [address] [place], [address] Basophils/100 WBC (Bld) 0.3 % Normal 0-1 [facility] Comment on above: Performed By: #### L 503.7505, L500.2500, L100.0100 ####[facility] [address] [place], [address] Eosinophils/100 WBC (Bld) 2.4 % Normal 0-5 [facility] Comment on above: Performed By: #### L 503.7505, L500.2500, L100.0100 ####[facility] [address] [place], [address] Erythrocyte distribution width (RBC) [Ratio] 14.1 % Normal 11.6-14.6 [facility] Comment on above: Performed By: #### L 503.7505, L500.2500, L100.0100 ####[facility] [address] [place], [address] Hematocrit (Bld) [Volume fraction] 38.2 % Low 40-54 [facility] Comment on above: Performed By: #### L 503.7505, L500.2500, L100.0100 ####[facility] [address] [place], [address] Hemoglobin (Bld) [Mass/Vol] 12.2 g/dL Low 13.0-16.5 [facility] Comment on above: Performed By: #### L 503.7505, L500.2500, L100.0100 ####[facility] [address] [place], [address] IG% 0.500 Normal 0.0-0.9 [facility] Comment on above: Result Comment: IG% - Immature Granulocytes (promyelocytes, myelocytes andmetamyelocytes) > 1% indicates that a LEFT SHIFT is Present. Performed By: #### L 503.7505, L500.2500, L100.0100 ####[facility] [address] [place], [address] Lymphocytes/100 WBC (Bld) 19.9 % Normal 19-41 [facility] Comment on above: Performed By: #### L 503.7505, L500.2500, L100.0100 ####[facility] [address] [place], [address] MCH (RBC) [Entitic mass] 29.6 pg Normal 27.0-32.0 [facility] Comment on above: Performed By: #### L 503.7505, L500.2500, L100.0100 ####[facility] [address] [place], [address] MCHC (RBC) [Mass/Vol] 31.9 g/dL Low 32-36 [facility] Comment on above: Performed By: #### L 503.7505, L500.2500, L100.0100 ####[facility] [address] [place], [address] MCV (RBC) [Entitic vol] 92.7 fL Normal 80-94 [facility] Comment on above: Performed By: #### L 503.7505, L500.2500, L100.0100 ####[facility] [address] [place], [address] Monocytes/100 WBC (Bld) 10.4 % High 0-10 [facility] Comment on above: Performed By: #### L 503.7505, L500.2500, L100.0100 ####[facility] [address] [place], [address] Neutrophils/100 WBC (Bld) 66.5 % Normal 47-70 [facility] Comment on above: Performed By: #### L 503.7505, L500.2500, L100.0100 ####[facility] [address] [place], [address] Nucleated RBC (Bld) [#/Vol] 0 10*3/uL Normal 0-5 [facility] Comment on above: Performed By: #### L 503.7505, L500.2500, L100.0100 ####[facility] [address] [place], [address] Platelet mean volume (Bld) [Entitic vol] 12.7 fL High 6.2-12.0 [facility] Comment on above: Performed By: #### L 503.7505, L500.2500, L100.0100 ####[facility] [address] [place], [address] Platelets (Bld) [#/Vol] 120 10*3/uL Low 150-450 [facility] Comment on above: Performed By: #### L 503.7505, L500.2500, L100.0100 ####[facility] [address] [place], [address] RBC (Bld) [#/Vol] 4.12 10*6/uL Low 4.6-6.2 [facility] Comment on above: Performed By: #### L 503.7505, L500.2500, L100.0100 ####[facility] [address] [place], [address] RDW SD 47.8 fl High 35.1-43.9 [facility] Comment on above: Performed By: #### L 503.7505, L500.2500, L100.0100 ####[facility] [address] [place], [address] WBC (Bld) [#/Vol] 6.2 10*3/uL Normal 4.4-11.0 [facility] Comment on above: Performed By: #### L 503.7505, L500.2500, L100.0100 ####[facility] [address] [place], [address] Carbon dioxide, total [Moles /volume] in Central venous bloodOrdered By: Marycarmen Rodriguez on 11-09-2024 CO2 [Moles/Vol] 22.5 mmol/L 21.0-32.0 [facility] Chloride assayOrdered By: Ap Rodriguez on 11-09-2024 Chloride [Moles/Vol] 102 mmol/L 98-108 [facility] Eosinophil percentageOrdered By: Marycarmen Rodriguez on 11-09-2024 Eosinophils/100 WBC (Bld) 2.4 % 0-5 [facility] Erythrocyte distribution wid th ratioOrdered By: Marycarmen Rodriguez on 11-09-2024 Erythrocyte distribution width (RBC) [Ratio] 14.1 % 11.6-14.6 [facility] Erythrocyte distribution wid th standard deviationOrdered By: Marycarmen Rodriguez on 11-09-2024 Erythrocyte distribution width (RBC) [Ratio] 47.8 fl High 35.1-43.9 [facility] Glomerular filtration rate ( GFR) estimation/1.73 sq m using serum, plasma, or whole bOrdered By: Marycarmen Rodriguez on 11-09-2024 GFR/1.73 sq M.predicted among non-blacks MDRD (S/P/Bld) [Vol rate/Area] 26 mL/min/{1.73_m2} Low >60 [facility] Comment on above: mL/min/1.73m2 CKD-EP I Creatinine Equation (2020) Hematocrit Auto (Bld) [Volum e fraction]Ordered By: Marycarmen Rodriguez on 11-09-2024 Hematocrit (Bld) [Volume fraction] 38.2 % Low 40-54 [facility] Hemoglobin measurementOrdere d By: Marycarmen Rodriguez on 11-09-2024 Hemoglobin (Bld) [Mass/Vol] 12.2 g/dL Low 13.0-16.5 [facility] Immature granulocytes/100 WB C Auto (Bld)Ordered By: Marycarmen Rodriguez on 11-09-2024 Immature granulocytes/100 WBC (Bld) 0.500 % 0.0-0.9 [facility] Comment on above: IG% - Immature Granu locytes (promyelocytes, myelocytes and metamyelocytes) > 1% indicates that a LEFT SHIFT is Present. L503.7505on 11-09-2024 Natriuretic peptide B (Bld) [Mass/Vol] 91 pg/mL Normal <=1800 [facility] Comment on above: Result Comment: Hear t Failure Unlikely: < 300 pg/mLHeart Failure Likely< 50 Years: > 450 pg/mL50-75 Years: > 900 pg/mL>75 Years: > 1800 pg/mL Performed By: #### L 503.7505, L500.2500, L100.0100 ####[facility] [address] [place], [place], [id number] MCV (mean corpuscular volume ) determinationOrdered By: Marycarmen Rodriguez on 11-09-2024 MCV (RBC) [Entitic vol] 92.7 fL 80-94 [facility] Mean corpuscular hemoglobin (MCH) determinationOrdered By: Marycarmen Rodriguez on 11-09-2024 MCH (RBC) [Entitic mass] 29.6 pg 27.0-32.0 [facility] Mean corpuscular hemoglobin concentration (MCHC) determinationOrdered By: Marycarmen Rodriguez on 11-09-2024 MCHC (RBC) [Mass/Vol] 31.9 g/dL Low 32-36 [facility] Mean platelet volume determi nationOrdered By: Marycarmen Rodriguez on 11-09-2024 Platelet mean volume (Bld) [Entitic vol] 12.7 fL High 6.2-12.0 [facility] Monocyte percentageOrdered B y: Marycarmen Rodriguez on 11-09-2024 Monocytes/100 WBC (Bld) 10.4 % High 0-10 [facility] Natriuretic peptide.B prohor efrem N-Terminal [Mass/volume] in Serum or PlasmaOrdered By: Marycarmen Rodriguez on 11-09-2024 Natriuretic peptide.B prohormone N-Terminal [Mass/Vol] 91 pg/mL <1800 [facility] Comment on above: Heart Failure Unlike ly: < 300 pg/mLHeart Failure Likely< 50 Years: > 450 pg/mL50-75 Years: > 900 pg/mL>75 Years: > 1800 pg/mL Neutrophil percentageOrdered By: Marycarmen Rodriguez on 11-09-2024 Neutrophils/100 WBC (Bld) 66.5 % 47-70 [facility] Nucleated red blood cell per centageOrdered By: Marycarmen Rodriguez on 11-09-2024 Nucleated RBC/100 WBC (Bld) [Ratio] 0 % 0-5 [facility] Platelet countOrdered By: Ap Rodriguez on 11-09-2024 Platelets (Bld) [#/Vol] 120 10*3/uL Low 150-450 [facility] Potassium measurement (mass/ volume)Ordered By: Marycarmen Rodriguez on 11-09-2024 Potassium (Unsp spec) [Mass/Vol] 4.6 mmol/L 3.3-5.1 [facility] RBC Auto (Bld) [#/Vol]Ordere d By: Marycarmen Rodriguez on 11-09-2024 RBC (Bld) [#/Vol] 4.12 10*6/uL Low 4.6-6.2 [facility] Serum creatinine measurement (mass/volume)Ordered By: Marycarmen Rodriguez on 11-09-2024 Creatinine [Mass/Vol] 2.49 mg/dL High 0.70-1.20 [facility] Serum glucose measurement (m ass/volume)Ordered By: Marycarmen Rodriguez on 11-09-2024 Glucose [Mass/Vol] 169 mg/dL High 70-99 [facility] Serum or plasma calcium francine urement (mass/volume)Ordered By: Marycarmen Rodriguez on 11-09-2024 Calcium [Mass/Vol] 9.3 mg/dL 7.6-11.0 [facility] Serum or plasma urea nitroge n measurement (mass/volume)Ordered By: Marycarmen Rodriguez on 11-09-2024 Urea nitrogen [Mass/Vol] 49 mg/dL High 4-19 [facility] Sodium levelOrdered By: Marycarmen Rodriguez on 11-09-2024 Sodium [Moles/Vol] 139 mmol/L 133-145 [facility] White blood cell (WBC) count Ordered By: Marycarmen Rodriguez on 11-09-2024 WBC (Bld) [#/Vol] 6.2 10*3/uL 4.4-11.0 [facility] Pulmonary Visit Reporton Pulmonary Visit Report Normal [facility] Cardiology Visit Reporton Cardiology Visit Report Normal [facility] L3410.9992on 10-23-2024 [facility] Misc. COMMENT Normal . [facility] Comment on above: Order Comment: [id number] 0MED TOX Result Comment: Test Ordered: [id number] C24-Kvesmt+SG0Dcgqpxcccszh Screen, Urine Negative ng/mL UI Reference Range: Nhdmeg=289Dohjpadustj test includes Amphetamine and Methamphetamine.Barbiturates Negative ng/mL UI Reference Range: Ssjfiv=580Jzkavjimuxghumq Negative ng/mL UI Reference Range: Fuuryv=698Yorfusx (Metab.), Urine Negative ng/mL UI Reference Range: Izjwmq=240Yozazsv Note: ng/mL UI See Final Results Reference Range: Vdxaek=680Qbxxhp test includes Codeine, Morphine, Hydromorphone, Hydrocodone.Opiates Positive [A ] UI Reference Range: Mgalvs=352Fxczvv test includes Codeine, Morphine, Hydromorphone, Hydrocodone.Codeine Negative UI Reference Range: Gwsmib=257Vjthvfjx Negative UI Reference Range: Qiprnc=043Jcefsthlfxubs Negative UI Reference Range: Htgjqg=687Fektbfygvof Positive [A ] UI Reference Range: .Hydrocodone Conf, MS, UR 349 ng/mL UI Reference Range: Hmeesj=3018-Wsdxcykzxhcdxs, Urine Negative ng/mL UI Reference Range: Cutoff=10Oxycodone/Oxymorphone, Urine Negative ng/mL UI Reference Range: Smxxuu=727Dbiv includes Oxycodone and OxymorphonePCP, Urine Negative ng/mL UI Reference Range: Cutoff=25Methadone Screen, Urine Negative ng/mL UI Reference Range: Ciqjav=257Buwqmqzbbcdm, Urine Negative ng/mL UI Reference Range: Skpyve=759Grxvczox, Urine Negative ng/mL UI Reference Range: Cutoff=2.0Test includes Fentanyl and NorfentanylThis test was developed and its performance characteristicsdetermined by [facility]. It has not been cleared orapproved by the Food and Drug Administration.Tramadol Negative ng/mL UI Reference Range: Kjdeec=158Dmodnttngxurq, Urine Negative ng/mL UI Reference Range: Cutoff=10Creatinine, Urine 36.9 mg/dL UI Reference Range: 20.0-300.0pH, Urine 6.1 UI Reference Range: 4.5-8.9Performed at: UI - [facility] [id number] [place], [place] [id number] Director: Erik Wallis PhD, Phone: [phone] at: CB - [facility] [id number] [place], [place] [id number] Director: Bharath Hawthorne PhD, Phone: [phone] Performed By: #### L 3410.9992, L505.5000 ####[facility] [address] [place], [address] Absolute lymphocyte countOrd ered By: Gustabo Pérez on 10-18-2024 Lymphocytes Auto (Unsp spec) [#/Vol] 1.15 10*3/uL 0.83-4.51 [facility] Absolute neutrophil countOrd ered By: Gustabo Pérez on 10-18-2024 Neutrophils (Bld) [#/Vol] 4.6 10*3/uL 2.0-7.7 [facility] Amphetamine detection with 1 000 ng/mL as cutoffOrdered By: Brooks Carpenter on 10-18-2024 Amphetamines Screen method >1000 ng/mL Ql (U) Negative < 200 ng/mL [facility] Anion gap in Serum or Plasma Ordered By: Gustabo Pérez on 10-18-2024 Anion gap [Moles/Vol] 12 mmol/L - [facility] Automated lymphocyte count a s percentage of total leukocytesOrdered By: Gustabo Pérez on 10-18-2024 Lymphocytes/100 WBC Auto (Unsp spec) 17.4 % Low - [facility] BUN/creatinine ratioOrdered By: Gustabo Pérez on 10-18-2024 Urea nitrogen/Creatinine [Mass ratio] 16.4 mg/mg - [facility] Basic Metabolic Profile (BMP )on 10-18-2024 BUN/CRE 16.4 RATIO Normal 02-19 [facility] Comment on above: Performed By: #### L 500.2500, L100.0100, L503.1055 ####[facility] [address] [place] [place], [address] Calcium [Mass/Vol] 9.0 mg/dL Normal 7.6-11.0 [facility] Comment on above: Performed By: #### L 500.2500, L100.0100, L503.7505 ####[facility] [address] [place] [place], [address] Chloride [Moles/Vol] 103 mmol/L Normal 98-108 [facility] Comment on above: Performed By: #### L 500.2500, L100.0100, L503.7505 ####[facility] [address] [place] [place], [address] CO2 [Moles/Vol] 23.9 mmol/L Normal 21.0-32.0 [facility] Comment on above: Performed By: #### L 500.2500, L100.0100, L503.7505 ####[facility] [address] [place] [place], [address] Creatinine [Mass/Vol] 2.00 mg/dL High 0.70-1.20 [facility] Comment on above: Performed By: #### L 500.2500, L100.0100, L503.7505 ####[facility] [address] [place] [place], [address] GAP 12 Normal 5-15 [facility] Comment on above: Performed By: #### L 500.2500, L100.0100, L503.7505 ####[facility] [address] [place], [address] GFR/1.73 sq M.predicted among non-blacks MDRD (S/P/Bld) [Vol rate/Area] 33 mL/min/{1.73_m2} Low >60 [facility] Comment on above: Result Comment: mL/m in/1.73m2 CKD-EPI Creatinine Equation (2020) Performed By: #### L 500.2500, L100.0100, L503.7505 ####[facility] [address] [place], [address] Glucose [Mass/Vol] 125 mg/dL High 70-99 [facility] Comment on above: Performed By: #### L 500.2500, L100.0100, L503.7505 ####[facility] [address] [place], [address] Potassium [Moles/Vol] 4.8 mmol/L Normal 3.3-5.1 [facility] Comment on above: Performed By: #### L 500.2500, L100.0100, L503.7505 ####[facility] [address] [place], [address] Sodium [Moles/Vol] 139 mmol/L Normal 133-145 [facility] Comment on above: Performed By: #### L 500.2500, L100.0100, L503.7505 ####[facility] [address] [place], [address] Urea nitrogen [Mass/Vol] 33 mg/dL High 4-19 [facility] Comment on above: Performed By: #### L 500.2500, L100.0100, L503.7505 ####[facility] [address] [place], [address] Basophil percentageOrdered B y: Gustabo Beto on 10-18-2024 Basophils/100 WBC (Bld) 0.2 % 0-1 [facility] CBC W/Diff, Automatedon 10-01 Absolute Lymph 1.15 X10 3/uL Normal 0.83-4.51 [facility] Comment on above: Performed By: #### L 500.2500, L100.0100, L503.7505 ####[facility] [address] [place], [address] Absolute Neut 4.6 X10 3/uL Normal 2.0-7.7 [facility] Comment on above: Performed By: #### L 500.2500, L100.0100, L503.7505 ####[facility] [address] [place], [address] Basophils/100 WBC (Bld) 0.2 % Normal 0-1 [facility] Comment on above: Performed By: #### L 500.2500, L100.0100, L503.7505 ####[facility] [address] [place], [address] Eosinophils/100 WBC (Bld) 2.0 % Normal 0-5 [facility] Comment on above: Performed By: #### L 500.2500, L100.0100, L503.7505 ####[facility] [address] [place], [address] Erythrocyte distribution width (RBC) [Ratio] 14.3 % Normal 11.6-14.6 [facility] Comment on above: Performed By: #### L 500.2500, L100.0100, L503.7505 ####[facility] [address] [place], [address] Hematocrit (Bld) [Volume fraction] 36.4 % Low 40-54 [facility] Comment on above: Performed By: #### L 500.2500, L100.0100, L503.7505 ####[facility] [address] [place], [address] Hemoglobin (Bld) [Mass/Vol] 11.5 g/dL Low 13.0-16.5 [facility] Comment on above: Performed By: #### L 500.2500, L100.0100, L503.7505 ####[facility] [address] [place], [address] IG% 0.600 Normal 0.0-0.9 [facility] Comment on above: Result Comment: IG% - Immature Granulocytes (promyelocytes, myelocytes andmetamyelocytes) > 1% indicates that a LEFT SHIFT is Present. Performed By: #### L 500.2500, L100.0100, L503.7505 ####[facility] [address] [place], [address] Lymphocytes/100 WBC (Bld) 17.4 % Low 19-41 [facility] Comment on above: Performed By: #### L 500.2500, L100.0100, L503.7505 ####[facility] [address] [place], [address] MCH (RBC) [Entitic mass] 29.4 pg Normal 27.0-32.0 [facility] Comment on above: Performed By: #### L 500.2500, L100.0100, L503.7505 ####[facility] [address] [place], [address] MCHC (RBC) [Mass/Vol] 31.6 g/dL Low 32-36 [facility] Comment on above: Performed By: #### L 500.2500, L100.0100, L503.7505 ####[facility] [address] [place], [address] MCV (RBC) [Entitic vol] 93.1 fL Normal 80-94 [facility] Comment on above: Performed By: #### L 500.2500, L100.0100, L503.7505 ####[facility] [address] [place], [address] Monocytes/100 WBC (Bld) 10.4 % High 0-10 [facility] Comment on above: Performed By: #### L 500.2500, L100.0100, L503.7505 ####[facility] [address] [place], [address] Neutrophils/100 WBC (Bld) 69.4 % Normal 47-70 [facility] Comment on above: Performed By: #### L 500.2500, L100.0100, L503.7505 ####[facility] [address] [place], [address] Nucleated RBC (Bld) [#/Vol] 0 10*3/uL Normal 0-5 [facility] Comment on above: Performed By: #### L 500.2500, L100.0100, L503.7505 ####[facility] [address] [place], [address] Platelet mean volume (Bld) [Entitic vol] 12.9 fL High 6.2-12.0 [facility] Comment on above: Performed By: #### L 500.2500, L100.0100, L503.7505 ####[facility] [address] [place], [address] Platelets (Bld) [#/Vol] 152 10*3/uL Normal 150-450 [facility] Comment on above: Performed By: #### L 500.2500, L100.0100, L503.7505 ####[facility] [address] [place], [address] RBC (Bld) [#/Vol] 3.91 10*6/uL Low 4.6-6.2 [facility] Comment on above: Performed By: #### L 500.2500, L100.0100, L503.7505 ####[facility] [address] [place], [address] RDW SD 48.5 fl High 35.1-43.9 [facility] Comment on above: Performed By: #### L 500.2500, L100.0100, L503.7505 ####[facility] [address] [place], [address] WBC (Bld) [#/Vol] 6.6 10*3/uL Normal 4.4-11.0 [facility] Comment on above: Performed By: #### L 500.2500, L100.0100, L503.7505 ####[facility] [address] [place], [address] Carbon dioxide, total [Moles /volume] in Central venous bloodOrdered By: Gustabo Pérez on 10-18-2024 CO2 [Moles/Vol] 23.9 mmol/L 21.0-32.0 [facility] Chloride assayOrdered By: Lydia Pérez on 10-18-2024 Chloride [Moles/Vol] 103 mmol/L 98-108 [facility] Eosinophil percentageOrdered By: Gustabo Pérez on 10-18-2024 Eosinophils/100 WBC (Bld) 2.0 % 0-5 [facility] Erythrocyte distribution wid th ratioOrdered By: Gustabo Pérez on 10-18-2024 Erythrocyte distribution width (RBC) [Ratio] 14.3 % 11.6-14.6 [facility] Erythrocyte distribution wid th standard deviationOrdered By: Gustabo Péerz on 10-18-2024 Erythrocyte distribution width (RBC) [Ratio] 48.5 fl High 35.1-43.9 [facility] Glomerular filtration rate ( GFR) estimation/1.73 sq m using serum, plasma, or whole bOrdered By: Gustabo Pérez on 10-18-2024 GFR/1.73 sq M.predicted among non-blacks MDRD (S/P/Bld) [Vol rate/Area] 33 mL/min/{1.73_m2} Low >60 [facility] Comment on above: mL/min/1.73m2 CKD-EP I Creatinine Equation (2020) Hematocrit Auto (Bld) [Volum e fraction]Ordered By: Gustabo Pérez on 10-18-2024 Hematocrit (Bld) [Volume fraction] 36.4 % Low 40-54 [facility] Hemoglobin measurementOrdere d By: Gustabo Pérez on 10-18-2024 Hemoglobin (Bld) [Mass/Vol] 11.5 g/dL Low 13.0-16.5 [facility] Immature granulocytes/100 WB C Auto (Bld)Ordered By: Gustabo Pérez on 10-18-2024 Immature granulocytes/100 WBC (Bld) 0.600 % 0.0-0.9 [facility] Comment on above: IG% - Immature Granu locytes (promyelocytes, myelocytes and metamyelocytes) > 1% indicates that a LEFT SHIFT is Present. L503.7505on 10-18-2024 Natriuretic peptide B (Bld) [Mass/Vol] 200 pg/mL Normal <=1800 [facility] Comment on above: Result Comment: Hear t Failure Unlikely: < 300 pg/mLHeart Failure Likely< 50 Years: > 450 pg/mL50-75 Years: > 900 pg/mL>75 Years: > 1800 pg/mL Performed By: #### L 500.2500, L100.0100, L503.7505 ####[facility] [address] [place], [address] MCV (mean corpuscular volume ) determinationOrdered By: Gustabo Pérez on 10-18-2024 MCV (RBC) [Entitic vol] 93.1 fL 80-94 [facility] Mean corpuscular hemoglobin (MCH) determinationOrdered By: Gustabo Pérez on 10-18-2024 MCH (RBC) [Entitic mass] 29.4 pg 27.0-32.0 [facility] Mean corpuscular hemoglobin concentration (MCHC) determinationOrdered By: Gustabo Pérez on 10-18-2024 MCHC (RBC) [Mass/Vol] 31.6 g/dL Low 32-36 [facility] Mean platelet volume determi nationOrdered By: Gustabo Pérez on 10-18-2024 Platelet mean volume (Bld) [Entitic vol] 12.9 fL High 6.2-12.0 [facility] Monocyte percentageOrdered B y: Gustabo Pérez on 10-18-2024 Monocytes/100 WBC (Bld) 10.4 % High 0-10 [facility] Natriuretic peptide.B prohor efrem N-Terminal [Mass/volume] in Serum or PlasmaOrdered By: Gustabo Pérez on 10-18-2024 Natriuretic peptide.B prohormone N-Terminal [Mass/Vol] 200 pg/mL <1800 [facility] Comment on above: Heart Failure Unlike ly: < 300 pg/mLHeart Failure Likely< 50 Years: > 450 pg/mL50-75 Years: > 900 pg/mL>75 Years: > 1800 pg/mL Neutrophil percentageOrdered By: Gustabo Pérez on 10-18-2024 Neutrophils/100 WBC (Bld) 69.4 % 47-70 [facility] No Panel InformationOrdered By: Brooks Carpenter on 10-18-2024 Urine Buprenorphine Qualitative Negative < 200 ng/mL [facility] Urine Oxycodone Screen Negative < 100 ng/mL [facility] Negative < 200 ng/mL [facility] Nucleated red blood cell per centageOrdered By: Gustabo Pérez on 10-18-2024 Nucleated RBC/100 WBC (Bld) [Ratio] 0 % 0-5 [facility] Platelet countOrdered By: Lydia Pérez on 10-18-2024 Platelets (Bld) [#/Vol] 152 10*3/uL 150-450 [facility] Potassium measurement (mass/ volume)Ordered By: Gustabo Pérez on 10-18-2024 Potassium (Unsp spec) [Mass/Vol] 4.8 mmol/L 3.3-5.1 [facility] Quantitative urine opiates m easurementOrdered By: Brooks Carpenter on 10-18-2024 Opiates Ql (U) Positive < 300 ng/mL [facility] Comment on above: If confirmation test ing is needed, a separate order will be required to send out testing to the reference laboratory. RBC Auto (Bld) [#/Vol]Ordere d By: Gustabo Pérez on 10-18-2024 RBC (Bld) [#/Vol] 3.91 10*6/uL Low 4.6-6.2 [facility] Screening urine fentanyl ritu surementOrdered By: Brooks Carpenter on 10-18-2024 fentaNYL Screen Ql (U) Negative [facility] Serum creatinine measurement (mass/volume)Ordered By: Gustabo Pérez on 10-18-2024 Creatinine [Mass/Vol] 2.00 mg/dL High 0.70-1.20 [facility] Serum glucose measurement (m ass/volume)Ordered By: Gustabo Pérez on 10-18-2024 Glucose [Mass/Vol] 125 mg/dL High 70-99 [facility] Serum or plasma calcium francine urement (mass/volume)Ordered By: Gustabo Pérez on 10-18-2024 Calcium [Mass/Vol] 9.0 mg/dL 7.6-11.0 [facility] Serum or plasma urea nitroge n measurement (mass/volume)Ordered By: Gustabo Pérez on 10-18-2024 Urea nitrogen [Mass/Vol] 33 mg/dL High 4-19 [facility] Sodium levelOrdered By: Gustabo Pérez on 10-18-2024 Sodium [Moles/Vol] 139 mmol/L 133-145 [facility] Urine Drug Screen (VISTA)on 10-18-2024 AMPHETAMINES Negative Normal <1000 ng/mL [facility] Comment on above: Order Comment: PAIN MANAGMENT Performed By: #### L 3410.9992, L505.5000 ####[facility] [address] [facility] [address] BARBITIURATES Negative Normal < 200 ng/mL [facility] Comment on above: Order Comment: PAIN MANAGMENT Performed By: #### L 3410.9992, L505.5000 ####[facility] [address] [facility] [address] BENZODIAZIPINE Negative Normal < 200 ng/mL [facility] Comment on above: Order Comment: PAIN MANAGMENT Performed By: #### L 3410.9992, L505.5000 ####[facility] [address] [place], [address] BUP Ur Drug Scr Negative Normal < 200 ng/mL [facility] Comment on above: Order Comment: PAIN MANAGMENT Performed By: #### L 3410.9992, L505.5000 ####[facility] [address] [place], [address] COCAINE Negative Normal < 300 ng/mL [facility] Comment on above: Order Comment: PAIN MANAGMENT Performed By: #### L 3410.9992, L505.5000 ####[facility] [address] [place], [address] Fentanyl Negative Normal [facility] Comment on above: Order Comment: PAIN MANAGMENT Performed By: #### L 3410.9992, L505.5000 ####[facility] [address] [facility] [address] METHADONE Negative Normal < 300 ng/mL [facility] Comment on above: Order Comment: PAIN MANAGMENT Performed By: #### L 3410.9992, L505.5000 ####[facility] [address] [facility] [address] OPIATES Positive Normal < 300 ng/mL [facility] Comment on above: Order Comment: PAIN MANAGMENT Result Comment: If c onfirmation testing is needed, a separate order will berequired to send out testing to the reference laboratory. Performed By: #### L 3410.9992, L505.5000 ####[facility] [address] [facility] [address] OXYCODONE Negative Normal < 100 ng/mL [facility] Comment on above: Order Comment: PAIN MANAGMENT Performed By: #### L 3410.9992, L505.5000 ####[facility] [address] [facility] [address] PCP Negative Normal < 25 ng/mL [facility] Comment on above: Order Comment: PAIN MANAGMENT Performed By: #### L 3410.9992, L505.5000 ####[facility] [address] [facility] [address] THC Negative Normal < 50 ng/mL [facility] Comment on above: Order Comment: PAIN MANAGMENT Performed By: #### L 3410.9992, L505.5000 ####[facility] [address] [facility] [address] Urine benzodiazepine levelOr dered By: Brooks Basali on 10-18-2024 Benzodiazepines Ql (U) Negative < 200 ng/mL [facility] Urine cocaine levelOrdered B y: Ayman Basali on 10-18-2024 Cocaine Ql (U) Negative < 300 ng/mL [facility] Urine ihrvq-6-wqrsxuykpfdedy abinol (THC) measurementOrdered By: Brooks Carpenter on 10-18-2024 Cannabinoids Screen Ql (U) Negative < 50 ng/mL [facility] Urine phencyclidine (PCP) de tectionOrdered By: Brooks Carpenter on 10-18-2024 Phencyclidine Ql (U) Negative < 25 ng/mL [facility] White blood cell (WBC) count Ordered By: Gustabo Pérez on 10-18-2024 WBC (Bld) [#/Vol] 6.6 10*3/uL 4.4-11.0 [facility] Absolute lymphocyte countOrd ered By: Marycarmen Rodriguez on 09-29-2024 Lymphocytes Auto (Unsp spec) [#/Vol] 1.35 10*3/uL 0.83-4.51 [facility] Absolute neutrophil countOrd ered By: Marycarmen Rodriguez on 09-29-2024 Neutrophils (Bld) [#/Vol] 9.2 10*3/uL High 2.0-7.7 [facility] Automated lymphocyte count a s percentage of total leukocytesOrdered By: Marycarmen Rodriguez on 09-29-2024 Lymphocytes/100 WBC Auto (Unsp spec) 10.9 % Low 19-41 [facility] Basophil percentageOrdered B y: Marycarmen Rodriguez on 09-29-2024 Basophils/100 WBC (Bld) 0.6 % 0-1 [facility] CBC W/Diff, Automatedon 09-02 Absolute Lymph 1.35 X10 3/uL Normal 0.83-4.51 [facility] Comment on above: Performed By: #### L 503.0106, L100.0100, L503.6550, L503.6150 ####[facility] [address] [place], [address] Absolute Neut 9.2 X10 3/uL High 2.0-7.7 [facility] Comment on above: Performed By: #### L 503.0106, L100.0100, L503.6550, L503.6150 ####[facility] [address] [place], [address] Basophils/100 WBC (Bld) 0.6 % Normal 0-1 [facility] Comment on above: Performed By: #### L 503.0106, L100.0100, L503.6550, L503.6150 ####[facility] [address] [place], [address] Eosinophils/100 WBC (Bld) 0.7 % Normal 0-5 [facility] Comment on above: Performed By: #### L 503.0106, L100.0100, L503.6550, L503.6150 ####[facility] [address] [place], [address] Erythrocyte distribution width (RBC) [Ratio] 14.2 % Normal 11.6-14.6 [facility] Comment on above: Performed By: #### L 503.0106, L100.0100, L503.6550, L503.6150 ####[facility] [address] [place], [address] Hematocrit (Bld) [Volume fraction] 37.4 % Low 40-54 [facility] Comment on above: Performed By: #### L 503.0106, L100.0100, L503.6550, L503.6150 ####[facility] [address] [place], [address] Hemoglobin (Bld) [Mass/Vol] 12.1 g/dL Low 13.0-16.5 [facility] Comment on above: Performed By: #### L 503.0106, L100.0100, L503.6550, L503.6150 ####[facility] [address] [place], [address] IG% 3.600 High 0.0-0.9 [facility] Comment on above: Result Comment: IG% - Immature Granulocytes (promyelocytes, myelocytes andmetamyelocytes) > 1% indicates that a LEFT SHIFT is Present. Performed By: #### L 503.0106, L100.0100, L503.6550, L503.6150 ####[facility] [address] [place], [address] Lymphocytes/100 WBC (Bld) 10.9 % Low 19-41 [facility] Comment on above: Performed By: #### L 503.0106, L100.0100, L503.6550, L503.6150 ####[facility] [address] [place], [address] MCH (RBC) [Entitic mass] 29.6 pg Normal 27.0-32.0 [facility] Comment on above: Performed By: #### L 503.0106, L100.0100, L503.6550, L503.6150 ####[facility] [address] [place], [address] MCHC (RBC) [Mass/Vol] 32.4 g/dL Normal 32-36 [facility] Comment on above: Performed By: #### L 503.0106, L100.0100, L503.6550, L503.6150 ####[facility] [address] [place], [address] MCV (RBC) [Entitic vol] 91.4 fL Normal 80-94 [facility] Comment on above: Performed By: #### L 503.0106, L100.0100, L503.6550, L503.6150 ####[facility] [address] [place], [address] Monocytes/100 WBC (Bld) 9.9 % Normal 0-10 [facility] Comment on above: Performed By: #### L 503.0106, L100.0100, L503.6550, L503.6150 ####[facility] [address] [place], [address] Neutrophils/100 WBC (Bld) 74.3 % High 47-70 [facility] Comment on above: Performed By: #### L 503.0106, L100.0100, L503.6550, L503.6150 ####[facility] [address] [place], [address] Nucleated RBC (Bld) [#/Vol] 0 10*3/uL Normal 0-5 [facility] Comment on above: Performed By: #### L 503.0106, L100.0100, L503.6550, L503.6150 ####[facility] [address] [place], [address] Platelet mean volume (Bld) [Entitic vol] 12.3 fL High 6.2-12.0 [facility] Comment on above: Performed By: #### L 503.0106, L100.0100, L503.6550, L503.6150 ####[facility] [address] [place], [address] Platelets (Bld) [#/Vol] 169 10*3/uL Normal 150-450 [facility] Comment on above: Performed By: #### L 503.0106, L100.0100, L503.6550, L503.6150 ####[facility] [address] [place], [address] RBC (Bld) [#/Vol] 4.09 10*6/uL Low 4.6-6.2 [facility] Comment on above: Performed By: #### L 503.0106, L100.0100, L503.6550, L503.6150 ####[facility] [address] [place], [address] RDW SD 47.4 fl High 35.1-43.9 [facility] Comment on above: Performed By: #### L 503.0106, L100.0100, L503.6550, L503.6150 ####[facility] [address] [place], [address] WBC (Bld) [#/Vol] 12.4 10*3/uL High 4.4-11.0 [facility] Comment on above: Performed By: #### L 503.0106, L100.0100, L503.6550, L503.6150 ####[facility] [address] [place], [address] Eosinophil percentageOrdered By: Marycarmen Rodriguez on 09-29-2024 Eosinophils/100 WBC (Bld) 0.7 % 0-5 [facility] Erythrocyte distribution wid th ratioOrdered By: Marycarmen Rodriguez on 09-29-2024 Erythrocyte distribution width (RBC) [Ratio] 14.2 % 11.6-14.6 [facility] Erythrocyte distribution wid th standard deviationOrdered By: Marycarmen Rodriguez on 09-29-2024 Erythrocyte distribution width (RBC) [Ratio] 47.4 fl High 35.1-43.9 [facility] Ferritinon 09-29-2024 Ferritin [Mass/Vol] 454 ng/mL High 37-417 [facility] Comment on above: Performed By: #### L 503.0106, L100.0100, L503.6550, L503.6150 ####[facility] [address] [place], [address] Hematocrit Auto (Bld) [Volum e fraction]Ordered By: Marycarmen Rodriguez on 09-29-2024 Hematocrit (Bld) [Volume fraction] 37.4 % Low 40-54 [facility] Hemoglobin measurementOrdere d By: Marycarmen Rodriguez on 09-29-2024 Hemoglobin (Bld) [Mass/Vol] 12.1 g/dL Low 13.0-16.5 [facility] Immature granulocytes/100 WB C Auto (Bld)Ordered By: Marycarmen Rodriguez on 09-29-2024 Immature granulocytes/100 WBC (Bld) 3.600 % High 0.0-0.9 [facility] Comment on above: IG% - Immature Granu locytes (promyelocytes, myelocytes and metamyelocytes) > 1% indicates that a LEFT SHIFT is Present. Ironon 09-29-2024 Iron [Mass/Vol] 80 ug/dL Normal 65-175 [facility] Comment on above: Performed By: #### L 503.0106, L100.0100, L503.50, L503.6150 ####[facility] [address] [place], [address] Iron measurement (mass/mass) Ordered By: Marycarmen Rodriguez on 09-29-2024 Iron (Unsp spec) [Mass/Mass] 80 ug/dL 65-175 [facility] MCV (mean corpuscular volume ) determinationOrdered By: Marycarmen Rodriguez on 09-29-2024 MCV (RBC) [Entitic vol] 91.4 fL 80-94 [facility] Mean corpuscular hemoglobin (MCH) determinationOrdered By: Marycarmen Rodriguez on 09-29-2024 MCH (RBC) [Entitic mass] 29.6 pg 27.0-32.0 [facility] Mean corpuscular hemoglobin concentration (MCHC) determinationOrdered By: Marycarmen Rodriguez on 09-29-2024 MCHC (RBC) [Mass/Vol] 32.4 g/dL 32-36 [facility] Mean platelet volume determi nationOrdered By: Marycarmen Rodriguez on 09-29-2024 Platelet mean volume (Bld) [Entitic vol] 12.3 fL High 6.2-12.0 [facility] Monocyte percentageOrdered B y: Marycarmen Rodriguez on 09-29-2024 Monocytes/100 WBC (Bld) 9.9 % 0-10 [facility] Neutrophil percentageOrdered By: Marycarmen Rodriguez on 09-29-2024 Neutrophils/100 WBC (Bld) 74.3 % High 47-70 [facility] Nucleated red blood cell per centageOrdered By: Marycarmen Rodriguez on 09-29-2024 Nucleated RBC/100 WBC (Bld) [Ratio] 0 % 0-5 [facility] Platelet countOrdered By: Ap Rodriguez on 09-29-2024 Platelets (Bld) [#/Vol] 169 10*3/uL 150-450 [facility] RBC Auto (Bld) [#/Vol]Ordere d By: Marycarmen Rodriguez on 09-29-2024 RBC (Bld) [#/Vol] 4.09 10*6/uL Low 4.6-6.2 [facility] Serum or plasma ferritin ritu surement (mass/volume)Ordered By: Marycarmen Rodriguez on 09-29-2024 Ferritin [Mass/Vol] 454 ng/mL High 37-417 [facility] Vitamin B12on 09-29-2024 Cobalamin (Vitamin B12) [Mass/Vol] 766 pg/mL Normal 180-914 [facility] Comment on above: Performed By: #### L 503.0106, L100.0100, L503.6550, L503.6150 ####[facility] [address] [place], [address] Vitamin B12 ser/plasOrdered By: Marycarmen Rodriguez on 09-29-2024 Cobalamin (Vitamin B12) [Mass/Vol] 766 pg/mL 180-914 [facility] White blood cell (WBC) count Ordered By: Marycarmen Rodriguez on 09-29-2024 WBC (Bld) [#/Vol] 12.4 10*3/uL High 4.4-11.0 [facility] Absolute lymphocyte countOrd ered By: ELIAZAR Olivas on 09-20-2024 Lymphocytes Auto (Unsp spec) [#/Vol] 1.44 10*3/uL 0.83-4.51 [facility] Absolute neutrophil countOrd ered By: ELIAZAR Olivas on 09-20-2024 Neutrophils (Bld) [#/Vol] 6.6 10*3/uL 2.0-7.7 [facility] Automated lymphocyte count a s percentage of total leukocytesOrdered By: ELIAZAR Olivas on 09-20-2024 Lymphocytes/100 WBC Auto (Unsp spec) 15.5 % Low 19-41 [facility] Basophil percentageOrdered B y: ELIAZAR Olivas on 09-20-2024 Basophils/100 WBC (Bld) 0.3 % 0-1 [facility] CBC W/Diff, Automatedon 05-2 Absolute Lymph 1.44 X10 3/uL Normal 0.83-4.51 [facility] Comment on above: Performed By: #### L 100.0100, L503.7505 ####[facility] [address] [place], [address] Absolute Neut 6.6 X10 3/uL Normal 2.0-7.7 [facility] Comment on above: Performed By: #### L 100.0100, L503.7505 ####[facility] [address] [place], [address] Basophils/100 WBC (Bld) 0.3 % Normal 0-1 [facility] Comment on above: Performed By: #### L 100.0100, L503.7505 ####[facility] [address] [place], [address] Eosinophils/100 WBC (Bld) 1.5 % Normal 0-5 [facility] Comment on above: Performed By: #### L 100.0100, L503.7505 ####[facility] [address] [place], [address] Erythrocyte distribution width (RBC) [Ratio] 14.1 % Normal 11.6-14.6 [facility] Comment on above: Performed By: #### L 100.0100, L503.7505 ####[facility] [address] [place], [address] Hematocrit (Bld) [Volume fraction] 34.8 % Low 40-54 [facility] Comment on above: Performed By: #### L 100.0100, L503.7505 ####[facility] [address] [place], [address] Hemoglobin (Bld) [Mass/Vol] 11.1 g/dL Low 13.0-16.5 [facility] Comment on above: Performed By: #### L 100.0100, L503.7505 ####[facility] [address] [place], [address] IG% 0.800 Normal 0.0-0.9 [facility] Comment on above: Result Comment: IG% - Immature Granulocytes (promyelocytes, myelocytes andmetamyelocytes) > 1% indicates that a LEFT SHIFT is Present. Performed By: #### L 100.0100, L503.7505 ####[facility] [address] [place], [address] Lymphocytes/100 WBC (Bld) 15.5 % Low 19-41 [facility] Comment on above: Performed By: #### L 100.0100, L503.7505 ####[facility] [address] [place], [address] MCH (RBC) [Entitic mass] 29.4 pg Normal 27.0-32.0 [facility] Comment on above: Performed By: #### L 100.0100, L503.7505 ####[facility] [address] [place], [address] MCHC (RBC) [Mass/Vol] 31.9 g/dL Low 32-36 [facility] Comment on above: Performed By: #### L 100.0100, L503.7505 ####[facility] [address] [place], [address] MCV (RBC) [Entitic vol] 92.1 fL Normal 80-94 [facility] Comment on above: Performed By: #### L 100.0100, L503.7505 ####[facility] [address] [place], [address] Monocytes/100 WBC (Bld) 11.1 % High 0-10 [facility] Comment on above: Performed By: #### L 100.0100, L503.7505 ####[facility] [address] [place], [address] Neutrophils/100 WBC (Bld) 70.8 % High 47-70 [facility] Comment on above: Performed By: #### L 100.0100, L503.7505 ####[facility] [address] [place], [address] Nucleated RBC (Bld) [#/Vol] 0 10*3/uL Normal 0-5 [facility] Comment on above: Performed By: #### L 100.0100, L503.7505 ####[facility] [address] [place], [address] Platelet mean volume (Bld) [Entitic vol] 12.6 fL High 6.2-12.0 [facility] Comment on above: Performed By: #### L 100.0100, L503.7505 ####[facility] [address] [place], [address] Platelets (Bld) [#/Vol] 166 10*3/uL Normal 150-450 [facility] Comment on above: Performed By: #### L 100.0100, L503.7505 ####[facility] [address] [place], [address] RBC (Bld) [#/Vol] 3.78 10*6/uL Low 4.6-6.2 [facility] Comment on above: Performed By: #### L 100.0100, L503.7505 ####[facility] [address] [place], [address] RDW SD 48.0 fl High 35.1-43.9 [facility] Comment on above: Performed By: #### L 100.0100, L503.7505 ####[facility] [address] [place], [address] WBC (Bld) [#/Vol] 9.3 10*3/uL Normal 4.4-11.0 [facility] Comment on above: Performed By: #### L 100.0100, L503.7505 ####[facility] [address] [place], [place], [address] Eosinophil percentageOrdered By: ELIAZAR Marenjeremiah Olivas on 09-20-2024 Eosinophils/100 WBC (Bld) 1.5 % 0-5 [facility] Erythrocyte distribution wid th ratioOrdered By: ELIAZAR Olivas on 09-20-2024 Erythrocyte distribution width (RBC) [Ratio] 14.1 % 11.6-14.6 [facility] Erythrocyte distribution wid th standard deviationOrdered By: ELIAZAR Olivas on 09-20-2024 Erythrocyte distribution width (RBC) [Ratio] 48.0 fl High 35.1-43.9 [facility] Hematocrit Auto (Bld) [Volum e fraction]Ordered By: ELIAZAR Olivas on 09-20-2024 Hematocrit (Bld) [Volume fraction] 34.8 % Low 40-54 [facility] Hemoglobin measurementOrdere d By: ELIAZAR Olivas on 09-20-2024 Hemoglobin (Bld) [Mass/Vol] 11.1 g/dL Low 13.0-16.5 [facility] Immature granulocytes/100 WB C Auto (Bld)Ordered By: ELIAZAR Olivas on 09-20-2024 Immature granulocytes/100 WBC (Bld) 0.800 % 0.0-0.9 [facility] Comment on above: IG% - Immature Granu locytes (promyelocytes, myelocytes and metamyelocytes) > 1% indicates that a LEFT SHIFT is Present. L503.7505on 09-20-2024 Natriuretic peptide B (Bld) [Mass/Vol] 84 pg/mL Normal <=1800 [facility] Comment on above: Result Comment: Hear t Failure Unlikely: < 300 pg/mLHeart Failure Likely< 50 Years: > 450 pg/mL50-75 Years: > 900 pg/mL>75 Years: > 1800 pg/mL Performed By: #### L 100.0100, L503.7505 ####[facility] [address] [place], [address] MCV (mean corpuscular volume ) determinationOrdered By: ELIAZAR Olivas on 09-20-2024 MCV (RBC) [Entitic vol] 92.1 fL 80-94 [facility] Mean corpuscular hemoglobin (MCH) determinationOrdered By: ELIAZAR Olivas on 09-20-2024 MCH (RBC) [Entitic mass] 29.4 pg 27.0-32.0 [facility] Mean corpuscular hemoglobin concentration (MCHC) determinationOrdered By: ELIAZAR Olivas on 09-20-2024 MCHC (RBC) [Mass/Vol] 31.9 g/dL Low 32-36 [facility] Mean platelet volume determi nationOrdered By: ELIAZAR Olivas on 09-20-2024 Platelet mean volume (Bld) [Entitic vol] 12.6 fL High 6.2-12.0 [facility] Monocyte percentageOrdered B y: ELIAZAR Olivas on 09-20-2024 Monocytes/100 WBC (Bld) 11.1 % High 0-10 [facility] Natriuretic peptide.B prohor efrem N-Terminal [Mass/volume] in Serum or PlasmaOrdered By: ELIAZAR Olivas on 09-20-2024 Natriuretic peptide.B prohormone N-Terminal [Mass/Vol] 84 pg/mL <1800 [facility] Comment on above: Heart Failure Unlike ly: < 300 pg/mLHeart Failure Likely< 50 Years: > 450 pg/mL50-75 Years: > 900 pg/mL>75 Years: > 1800 pg/mL Neutrophil percentageOrdered By: ELIAZAR Olivas on 09-20-2024 Neutrophils/100 WBC (Bld) 70.8 % High 47-70 [facility] Nucleated red blood cell per centageOrdered By: ELIAZAR Olivas on 09-20-2024 Nucleated RBC/100 WBC (Bld) [Ratio] 0 % 0-5 [facility] Platelet countOrdered By: ELIAZAR Olivas on 09-20-2024 Platelets (Bld) [#/Vol] 166 10*3/uL 150-450 [facility] Pulmonary Visit Reporton Pulmonary Visit Report Normal [facility] RBC Auto (Bld) [#/Vol]Ordere d By: ELIAZAR Olivas on 09-20-2024 RBC (Bld) [#/Vol] 3.78 10*6/uL Low 4.6-6.2 [facility] White blood cell (WBC) count Ordered By: ELIAZAR Olivas on 09-20-2024 WBC (Bld) [#/Vol] 9.3 10*3/uL 4.4-11.0 [facility] 6 Minute Walk Teston 025 6 Minute Walk Test Normal [facility] Pulmonary Visit Reporton Pulmonary Visit Report Normal [facility] BUN/creatinine ratioOrdered By: Marycarmen Rodriguez on 06-30-2024 Urea nitrogen/Creatinine [Mass ratio] 17.4 mg/mg 10- [facility] Basic Metabolic Profile (BMP )on 06-30-2024 Anion gap [Moles/Vol] 11 mmol/L Normal 5-15 [facility] Comment on above: Performed By: #### L 500.2500 ####[facility] [address] [place], [address] BUN/CRE 17.4 RATIO Normal - [facility] Comment on above: Performed By: #### L 500.2500 ####[facility] [address] [place], [address] Calcium [Mass/Vol] 9.7 mg/dL Normal 7.6-11.0 [facility] Comment on above: Performed By: #### L 500.2500 ####[facility] [address] [place], [address] Chloride [Moles/Vol] 105 mmol/L Normal 96-108 [facility] Comment on above: Performed By: #### L 500.2500 ####[facility] [address] [place], [address] CO2 [Moles/Vol] 25.3 mmol/L Normal 22.0-29.0 [facility] Comment on above: Performed By: #### L 500.2500 ####[facility] [address] [place], [address] Creatinine [Mass/Vol] 1.80 mg/dL High 0.70-1.20 [facility] Comment on above: Performed By: #### L 500.2500 ####[facility] [address] [place], [address] GFR/1.73 sq M.predicted among non-blacks MDRD (S/P/Bld) [Vol rate/Area] 38 mL/min/{1.73_m2} Low >60 [facility] Comment on above: Result Comment: mL/m in/1.73m2 CKD-EPI Creatinine Equation (2020) Performed By: #### L 500.2500 ####[facility] [address] [place], [address] Glucose [Mass/Vol] 112 mg/dL High 70-99 [facility] Comment on above: Performed By: #### L 500.2500 ####[facility] [address] [place], [address] Potassium [Moles/Vol] 4.8 mmol/L Normal 3.3-5.1 [facility] Comment on above: Performed By: #### L 500.2500 ####[facility] [address] [place], [address] Sodium [Moles/Vol] 141 mmol/L Normal 133-145 [facility] Comment on above: Performed By: #### L 500.2500 ####[facility] [address] [place], [address] Urea nitrogen [Mass/Vol] 31 mg/dL High 4-19 [facility] Comment on above: Performed By: #### L 500.2500 ####[facility] [address] [place], [address] Carbon dioxide measurementOr dered By: Marycarmen Rodriguez on 06-30-2024 CO2 [Moles/Vol] 25.3 mmol/L 22.0-29.0 [facility] Chloride measurementOrdered By: Marycarmen Rodriguez on 06-30-2024 Chloride [Moles/Vol] 105 mmol/L 96-108 [facility] GFR/1.73 sq M.predicted ana lilia g non-blacks MDRD (S/P/Bld) [Vol rate/Area]Ordered By: Marycarmen Rodriguez on 06-30-2024 Estimated GFR (MDRD) Non-Af Amer 38 Low >60 [facility] Comment on above: mL/min/1.73m2 CKD-EP I Creatinine Equation (2020) Glomerular filtration rate ( GFR) estimation/1.73 sq m using serum, plasma, or whole bOrdered By: Marycarmen Rodriguez on 06-30-2024 GFR/1.73 sq M.predicted among non-blacks MDRD (S/P/Bld) [Vol rate/Area] 38 mL/min/{1.73_m2} Low >60 [facility] Comment on above: mL/min/1.73m2 CKD-EP I Creatinine Equation (2020) Serum creatinine measurement (mass/volume)Ordered By: Marycarmen Rodriguez on 06-30-2024 Creatinine [Mass/Vol] 1.80 mg/dL High 0.70-1.20 [facility] Serum glucose measurement (m ass/volume)Ordered By: Marycarmen Rodriguez on 06-30-2024 Glucose [Mass/Vol] 112 mg/dL High 70-99 [facility] Serum or plasma anion gap de termination (moles/volume)Ordered By: Marycarmen Rodriguez on 06-30-2024 Anion gap [Moles/Vol] 11 mmol/L 5-15 [facility] Serum or plasma calcium francine urement (mass/volume)Ordered By: Marycarmen Rodriguez on 06-30-2024 Calcium [Mass/Vol] 9.7 mg/dL 7.6-11.0 [facility] Serum or plasma potassium me asurementOrdered By: Marycarmen Rodriguez on 06-30-2024 Potassium [Moles/Vol] 4.8 mmol/L 3.3-5.1 [facility] Serum or plasma sodium measu rement (moles/volume)Ordered By: Maryacrmen Rodriguez on 06-30-2024 Sodium [Moles/Vol] 141 mmol/L 133-145 [facility] Serum or plasma urea nitroge n measurement (mass/volume)Ordered By: Marycarmen Rodriguez on 06-30-2024 Urea nitrogen [Mass/Vol] 31 mg/dL High 4-19 [facility] Absolute neutrophil countOrd ered By: Gustabo Pérez on 04-17-2024 Neutrophils (Bld) [#/Vol] 6.0 10*3/uL 2.0-7.7 [facility] BNP (brain natriuretic pepti de measurement)Ordered By: Gustabo Pérez on 04-17-2024 Natriuretic peptide B (Bld) [Mass/Vol] 37.2 pg/mL 0-100 [facility] BNP,B-Type NATRIURETIC PEPTI Sharon 04-17-2024 Natriuretic peptide B (Bld) [Mass/Vol] 37.2 pg/mL Normal 0-100 [facility] Comment on above: Performed By: #### L 100.0100, L503.6620, L500.2500 ####[facility] [address] [place], [address] Basic Metabolic Profile (BMP )on 04-17-2024 BUN/CRE 11.2 RATIO Normal 10-20 [facility] Comment on above: Performed By: #### L 100.0100, L503.6620, L500.2500 ####[facility] [address] [place], [address] CA,Total 9.0 mg/dL Normal 8.5-10.1 [facility] Comment on above: Performed By: #### L 100.0100, L503.6620, L500.2500 ####[facility] [address] [place], [address] Chloride [Moles/Vol] 107 mmol/L Normal 98-107 [facility] Comment on above: Performed By: #### L 100.0100, L503.6620, L500.2500 ####[facility] [address] [place], [address] CO2 [Moles/Vol] 27.0 mmol/L Normal 21.0-32.0 [facility] Comment on above: Performed By: #### L 100.0100, L503.6620, L500.2500 ####[facility] [address] [place], [address] Creatinine [Mass/Vol] 1.79 mg/dL High 0.70-1.30 [facility] Comment on above: Result Comment: The validity of the calculated GFR GFRAA in patients over70 years has not been determined. Clinical correlation isessential. Performed By: #### L 100.0100, L503.6620, L500.2500 ####[facility] [address] [place], [address] EST GFR - AA 47 mL/min Low >60 [facility] Comment on above: Result Comment: Afri can Pakistani GFR Calc Performed By: #### L 100.0100, L503.6620, L500.2500 ####[facility] [address] [place], [address] GAP 4 Low 5-15 [facility] Comment on above: Performed By: #### L 100.0100, L503.6620, L500.2500 ####[facility] [address] [place], [address] GFR/1.73 sq M.predicted among non-blacks MDRD (S/P/Bld) [Vol rate/Area] 39 mL/min/{1.73_m2} Low >60 [facility] Comment on above: Result Comment: Non- GFR Calc Performed By: #### L 100.0100, L503.6620, L500.2500 ####[facility] [address] [place], [address] Glucose [Mass/Vol] 228 mg/dL High 74-106 [facility] Comment on above: Result Comment: Gluc ose result greater than or equal to 200 mg/dLsuggests DIABETES MELLITUS per A.D.A. criteria. Performed By: #### L 100.0100, L503.6620, L500.2500 ####[facility] [address] [place], [address] Potassium [Moles/Vol] 4.8 mmol/L Normal 3.5-5.1 [facility] Comment on above: Performed By: #### L 100.0100, L503.6620, L500.2500 ####[facility] [address] [place], [address] Sodium [Moles/Vol] 138 mmol/L Normal 136-145 [facility] Comment on above: Performed By: #### L 100.0100, L503.6620, L500.2500 ####[facility] [address] [place], [address] Urea nitrogen [Mass/Vol] 20 mg/dL High 7-18 [facility] Comment on above: Performed By: #### L 100.0100, L503.6620, L500.2500 ####[facility] [address] [place], [address] Basophil percentageOrdered B y: Gustabo Pérez on 04-17-2024 Basophils/100 WBC (Bld) 0.5 % 0-1 [facility] Blood urea nitrogen (BUN)/cr eatinine ratioOrdered By: Gustabo Pérez on 04-17-2024 Urea nitrogen/Creatinine [Mass ratio] 11.2 mg/mg 10-20 [facility] CBC W/Diff, Automatedon - Absolute Lymph 1.29 X10 3/uL Normal 0.83-4.51 [facility] Comment on above: Performed By: #### L 100.0100, L503.6620, L500.2500 ####[facility] [address] [place], [address] Absolute Neut 6.0 X10 3/uL Normal 2.0-7.7 [facility] Comment on above: Performed By: #### L 100.0100, L503.6620, L500.2500 ####[facility] [address] [place], [address] Basophils/100 WBC (Bld) 0.5 % Normal 0-1 [facility] Comment on above: Performed By: #### L 100.0100, L503.6620, L500.2500 ####[facility] [address] [place], [address] Eosinophils/100 WBC (Bld) 1.2 % Normal 0-5 [facility] Comment on above: Performed By: #### L 100.0100, L503.6620, L500.2500 ####[facility] [address] [place], [address] Erythrocyte distribution width (RBC) [Ratio] 13.9 % Normal 11.6-14.6 [facility] Comment on above: Performed By: #### L 100.0100, L503.6620, L500.2500 ####[facility] [address] [place], [address] Hematocrit (Bld) [Volume fraction] 41.0 % Normal 40-54 [facility] Comment on above: Performed By: #### L 100.0100, L503.6620, L500.2500 ####[facility] [address] [place], [address] Hemoglobin (Bld) [Mass/Vol] 13.2 g/dL Normal 13.0-16.5 [facility] Comment on above: Performed By: #### L 100.0100, L503.6620, L500.2500 ####[facility] [address] [place], [address] IG% 0.600 Normal 0.0-0.9 [facility] Comment on above: Result Comment: IG% - Immature Granulocytes (promyelocytes, myelocytes andmetamyelocytes) > 1% indicates that a LEFT SHIFT is Present. Performed By: #### L 100.0100, L503.6620, L500.2500 ####[facility] [address] [place], [address] Lymphocytes/100 WBC (Bld) 15.7 % Low 19-41 [facility] Comment on above: Performed By: #### L 100.0100, L503.6620, L500.2500 ####[facility] [address] [place], [address] MCH (RBC) [Entitic mass] 29.2 pg Normal 27.0-32.0 [facility] Comment on above: Performed By: #### L 100.0100, L503.6620, L500.2500 ####[facility] [address] [place], [address] MCHC (RBC) [Mass/Vol] 32.2 g/dL Normal 32-36 [facility] Comment on above: Performed By: #### L 100.0100, L503.6620, L500.2500 ####[facility] [address] [place], [address] MCV (RBC) [Entitic vol] 90.7 fL Normal 80-94 [facility] Comment on above: Performed By: #### L 100.0100, L503.6620, L500.2500 ####[facility] [address] [place], [address] Monocytes/100 WBC (Bld) 8.5 % Normal 0-10 [facility] Comment on above: Performed By: #### L 100.0100, L503.6620, L500.2500 ####[facility] [address] [place], [address] Neutrophils/100 WBC (Bld) 73.5 % High 47-70 [facility] Comment on above: Performed By: #### L 100.0100, L503.6620, L500.2500 ####[facility] [address] [place], [address] Nucleated RBC (Bld) [#/Vol] 0 10*3/uL Normal 0-5 [facility] Comment on above: Performed By: #### L 100.0100, L503.6620, L500.2500 ####[facility] [address] [place], [address] Platelet mean volume (Bld) [Entitic vol] 12.3 fL High 6.2-12.0 [facility] Comment on above: Performed By: #### L 100.0100, L503.6620, L500.2500 ####[facility] [address] [place], [address] Platelets (Bld) [#/Vol] 185 10*3/uL Normal 150-450 [facility] Comment on above: Performed By: #### L 100.0100, L503.6620, L500.2500 ####[facility] [address] [place], [address] RBC (Bld) [#/Vol] 4.52 10*6/uL Low 4.6-6.2 [facility] Comment on above: Performed By: #### L 100.0100, L503.6620, L500.2500 ####[facility] [address] [place], [address] RDW SD 46.4 fl High 35.1-43.9 [facility] Comment on above: Performed By: #### L 100.0100, L503.6620, L500.2500 ####[facility] [address] [place], [address] WBC (Bld) [#/Vol] 8.2 10*3/uL Normal 4.4-11.0 [facility] Comment on above: Performed By: #### L 100.0100, L503.6620, L500.2500 ####[facility] [address] [place], [address] Carbon dioxide measurementOr dered By: Gustabo Pérez on 04-17-2024 CO2 [Moles/Vol] 27.0 mmol/L 21.0-32.0 [facility] Cardiology Visit Reporton Cardiology Visit Report Normal [facility] Chloride measurementOrdered By: Gustabo Pérez on 04-17-2024 Chloride [Moles/Vol] 107 mmol/L 98-107 [facility] Eosinophil percentageOrdered By: Gustabo Pérez on 04-17-2024 Eosinophils/100 WBC (Bld) 1.2 % 0-5 [facility] Erythrocyte distribution wid th ratioOrdered By: Gustabo Pérez on 04-17-2024 Erythrocyte distribution width (RBC) [Ratio] 13.9 % 11.6-14.6 [facility] Erythrocyte distribution wid th standard deviationOrdered By: Gustabo Pérez on 04-17-2024 Erythrocyte distribution width (RBC) [Entitic vol] 46.4 fL High 35.1-43.9 [facility] Estimated glomerular filtrat ion rate (GFR) AmericanOrdered By: Gustabo Pérez on 04-17-2024 Estimated GFR (MDRD) Amer 47 mL/min Low >60 [facility] Comment on above: GFR Calc Glomerular filtration rate ( GFR) estimationOrdered By: Gustabo Pérez on 04-17-2024 Estimated GFR (MDRD) Non-Af Amer 39 mL/min Low >60 [facility] Comment on above: Non- GFR Calc Glucose measurementOrdered B y: Gustabo Pérez on 04-17-2024 Glucose [Mass/Vol] 228 mg/dL High 74-106 [facility] Comment on above: Glucose result great er than or equal to 200 mg/dLsuggests DIABETES MELLITUS per A.D.A. criteria. Hematocrit Auto (Bld) [Volum e fraction]Ordered By: Gustabo Pérez on 04-17-2024 Hematocrit (Bld) [Volume fraction] 41.0 % 40-54 [facility] Hemoglobin measurementOrdere d By: Gustabo Pérez on 04-17-2024 Hemoglobin (Bld) [Mass/Vol] 13.2 g/dL 13.0-16.5 [facility] Immature granulocytes/100 WB C Auto (Bld)Ordered By: Gustabo Pérez on 04-17-2024 Immature granulocytes/100 WBC (Bld) 0.600 % 0.0-0.9 [facility] Comment on above: IG% - Immature Granu locytes (promyelocytes, myelocytes and metamyelocytes) > 1% indicates that a LEFT SHIFT is Present. Lymphocytes Auto (Unsp spec) [#/Vol]Ordered By: Gustabo Pérez on 04-17-2024 Lymphocytes (Bld) [#/Vol] 1.29 10*3/uL 0.83-4.51 [facility] Lymphocytes/100 WBC Auto (Un sp spec)Ordered By: Gustabo Pérez on 04-17-2024 Lymphocytes/100 WBC (Bld) 15.7 % Low 19-41 [facility] MCV (mean corpuscular volume ) determinationOrdered By: Gustabo Pérez on 04-17-2024 MCV (RBC) [Entitic vol] 90.7 fL 80-94 [facility] Mean corpuscular hemoglobin (MCH) determinationOrdered By: Gustabo Pérez on 04-17-2024 MCH (RBC) [Entitic mass] 29.2 pg 27.0-32.0 [facility] Mean corpuscular hemoglobin concentration (MCHC) determinationOrdered By: Gustabo Pérez on 04-17-2024 MCHC (RBC) [Mass/Vol] 32.2 g/dL 32-36 [facility] Mean platelet volume determi nationOrdered By: Gustabo Pérez on 04-17-2024 Platelet mean volume (Bld) [Entitic vol] 12.3 fL High 6.2-12.0 [facility] Monocyte percentageOrdered B y: Gustabo Pérez on 04-17-2024 Monocytes/100 WBC (Bld) 8.5 % 0-10 [facility] Neutrophil percentageOrdered By: Gustabo Pérez on 04-17-2024 Neutrophils/100 WBC (Bld) 73.5 % High 47-70 [facility] Nucleated red blood cell per centageOrdered By: Gustabo Pérez on 04-17-2024 Nucleated RBC/100 WBC (Bld) [Ratio] 0 % 0-5 [facility] Platelet countOrdered By: Lydia Pérez on 04-17-2024 Platelets (Bld) [#/Vol] 185 10*3/uL 150-450 [facility] Potassium measurementOrdered By: Gustabo Pérez on 04-17-2024 Potassium [Moles/Vol] 4.8 mmol/L 3.5-5.1 [facility] RBC Auto (Bld) [#/Vol]Ordere d By: Gustabo Pérez on 04-17-2024 RBC (Bld) [#/Vol] 4.52 10*6/uL Low 4.6-6.2 [facility] Serum anion gap measurementO rdered By: Gustabo Pérez on 04-17-2024 Anion gap [Moles/Vol] 4 mmol/L Low 5-15 [facility] Serum or plasma calcium francine urement (mass/volume)Ordered By: Gustabo Pérez on 04-17-2024 Calcium [Mass/Vol] 9.0 mg/dL 8.5-10.1 [facility] Serum or plasma creatinine m easurement (mass/volume)Ordered By: Gustabo Pérez on 04-17-2024 Creatinine [Mass/Vol] 1.79 mg/dL High 0.70-1.30 [facility] Comment on above: The validity of the calculated GFR & GFRAA in patients over 70 years has not been determined. Clinical correlation is essential. Serum or plasma urea nitroge n measurement (mass/volume)Ordered By: Gustabo Pérez on 04-17-2024 Urea nitrogen [Mass/Vol] 20 mg/dL High 7-18 [facility] Sodium levelOrdered By: Gustabo Pérez on 04-17-2024 Sodium [Moles/Vol] 138 mmol/L 136-145 [facility] White blood cell (WBC) count Ordered By: Gustabo Pérez on 04-17-2024 WBC (Bld) [#/Vol] 8.2 10*3/uL 4.4-11.0 [facility] Office Visit Reporton 2023 Office Visit Report Normal [facility] Albumin to globulin ratioOrd ered By: Jose Hay on 03-23-2024 Albumin/Globulin [Mass ratio] 1.1 {ratio} 0.9-2.4 [facility] Bilirubin, totalOrdered By: Jose Hay on 03-23-2024 Bilirubin [Mass/Vol] 2.00 mg/dL High 0.20-1.00 [facility] Comment on above: For patients on eltr ombopag therapy, use of Dimension [place] TBIL is not recommended. Blood urea nitrogen (BUN)/cr eatinine ratioOrdered By: Jose Hay on 03-23-2024 Urea nitrogen/Creatinine [Mass ratio] 18.0 mg/mg 10-20 [facility] Carbon dioxide measurementOr dered By: Jose Hay on 03-23-2024 CO2 [Moles/Vol] 28.0 mmol/L 21.0-32.0 [facility] Chloride measurementOrdered By: Jose Hay on 03-23-2024 Chloride [Moles/Vol] 104 mmol/L 98-107 [facility] Comprehensive Metabolic Prof ilon 03-23-2024 Albumin [Mass/Vol] 3.7 g/dL Normal 3.2-5.0 [facility] Comment on above: Order Comment: DR REMY ORDERED BMP AND MAGNESIUM.DR HAY ORDERED LIPID CMP TSH. RANGLE Performed By: #### L 501.9520, L501.5200, L500.4050, L500.4100 ####[facility] [address] [place], [address] Albumin/Globulin [Mass ratio] 1.1 {ratio} Normal 0.9-2.4 [facility] Comment on above: Order Comment: DR REMY ORDERED BMP AND MAGNESIUM.DR HAY ORDERED LIPID CMP TSH. RANGLE Performed By: #### L 501.9520, L501.5200, L500.4050, L500.4100 ####[facility] [address] [place], [address] ALK P 92 U/L Normal 45-117 [facility] Comment on above: Order Comment: DR REMY ORDERED BMP AND MAGNESIUM.DR HAY ORDERED LIPID CMP TSH. RANGLE Performed By: #### L 501.9520, L501.5200, L500.4050, L500.4100 ####[facility] [address] [place], [address] ALT [Catalytic activity/Vol] 52 U/L Normal 16-61 [facility] Comment on above: Order Comment: DR REMY ORDERED BMP AND MAGNESIUM.DR HAY ORDERED LIPID CMP TSH. RANGLE Performed By: #### L 501.9520, L501.5200, L500.4050, L500.4100 ####[facility] [address] [place], [address] AST [Catalytic activity/Vol] 28 U/L Normal 15-37 [facility] Comment on above: Order Comment: DR REMY ORDERED BMP AND MAGNESIUM.DR HAY ORDERED LIPID CMP TSH. RANGLE Performed By: #### L 501.9520, L501.5200, L500.4050, L500.4100 ####[facility] [address] [place], [address] Bilirubin [Mass/Vol] 2.00 mg/dL High 0.20-1.00 [facility] Comment on above: Order Comment: DR REMY ORDERED BMP AND MAGNESIUM.DR HAY ORDERED LIPID CMP TSH. RANGLE Result Comment: For patients on eltrombopag therapy, use of Dimension [place] TBIL is not recommended. Performed By: #### L 501.9520, L501.5200, L500.4050, L500.4100 ####[facility] [address] [place], [address] BUN/CRE 18.0 RATIO Normal 10-20 [facility] Comment on above: Order Comment: DR REMY ORDERED BMP AND MAGNESIUM.DR HAY ORDERED LIPID CMP TSH. RANGLE Performed By: #### L 501.9520, L501.5200, L500.4050, L500.4100 ####[facility] [address] [place], [address] CA,Total 8.8 mg/dL Normal 8.5-10.1 [facility] Comment on above: Order Comment: DR REMY ORDERED BMP AND MAGNESIUM.DR HAY ORDERED LIPID CMP TSH. RANGLE Performed By: #### L 501.9520, L501.5200, L500.4050, L500.4100 ####[facility] [address] [place], [address] Chloride [Moles/Vol] 104 mmol/L Normal 98-107 [facility] Comment on above: Order Comment: DR REMY ORDERED BMP AND MAGNESIUM.DR HAY ORDERED LIPID CMP TSH. RANGLE Performed By: #### L 501.9520, L501.5200, L500.4050, L500.4100 ####[facility] [address] [place], [address] CO2 [Moles/Vol] 28.0 mmol/L Normal 21.0-32.0 [facility] Comment on above: Order Comment: DR REMY ORDERED BMP AND MAGNESIUM.DR HAY ORDERED LIPID CMP TSH. RANGLE Performed By: #### L 501.9520, L501.5200, L500.4050, L500.4100 ####[facility] [address] [place], [address] Creatinine [Mass/Vol] 1.67 mg/dL High 0.70-1.30 [facility] Comment on above: Order Comment: DR REMY ORDERED BMP AND MAGNESIUM.DR HAY ORDERED LIPID CMP TSH. RANGLE Result Comment: The validity of the calculated GFR GFRAA in patients over70 years has not been determined. Clinical correlation isessential. Performed By: #### L 501.9520, L501.5200, L500.4050, L500.4100 ####[facility] [address] [place], [address] EST GFR - AA 51 mL/min Low >60 [facility] Comment on above: Order Comment: DR REMY ORDERED BMP AND MAGNESIUM.DR HAY ORDERED LIPID CMP TSH. RANGLE Result Comment: Afri can Pakistani GFR Calc Performed By: #### L 501.9520, L501.5200, L500.4050, L500.4100 ####[facility] [address] [place], [address] GAP 6 Normal 5-15 [facility] Comment on above: Order Comment: DR REMY ORDERED BMP AND MAGNESIUM.DR HAY ORDERED LIPID CMP TSH. RANGLE Performed By: #### L 501.9520, L501.5200, L500.4050, L500.4100 ####[facility] [address] [place], [address] GFR/1.73 sq M.predicted among non-blacks MDRD (S/P/Bld) [Vol rate/Area] 42 mL/min/{1.73_m2} Low >60 [facility] Comment on above: Order Comment: DR REMY ORDERED BMP AND MAGNESIUM.DR HAY ORDERED LIPID CMP TSH. RANGLE Result Comment: Non- GFR Calc Performed By: #### L 501.9520, L501.5200, L500.4050, L500.4100 ####[facility] [address] [place], [address] Globulin (S) [Mass/Vol] 3.3 g/dL Normal 2.2-4.2 [facility] Comment on above: Order Comment: DR REMY ORDERED BMP AND MAGNESIUM.DR HAY ORDERED LIPID CMP TSH. RANGLE Performed By: #### L 501.9520, L501.5200, L500.4050, L500.4100 ####[facility] [address] [place], [address] Glucose [Mass/Vol] 146 mg/dL High 74-106 [facility] Comment on above: Order Comment: DR REMY ORDERED BMP AND MAGNESIUM.DR HAY ORDERED LIPID CMP TSH. RANGLE Result Comment: Fast ing Glucose result greater than or equal to 126 mg/dLsuggests DIABETES MELLITUS per A.D.A. criteria. Performed By: #### L 501.9520, L501.5200, L500.4050, L500.4100 ####[facility] [address] [place], [address] Potassium [Moles/Vol] 4.4 mmol/L Normal 3.5-5.1 [facility] Comment on above: Order Comment: DR REMY ORDERED BMP AND MAGNESIUM.DR HAY ORDERED LIPID CMP TSH. RANGLE Performed By: #### L 501.9520, L501.5200, L500.4050, L500.4100 ####[facility] [address] [place], [address] Sodium [Moles/Vol] 138 mmol/L Normal 136-145 [facility] Comment on above: Order Comment: DR REMY ORDERED BMP AND MAGNESIUM.DR HAY ORDERED LIPID CMP TSH. RANGLE Performed By: #### L 501.9520, L501.5200, L500.4050, L500.4100 ####[facility] [address] [place], [address] T PROT 7.0 g/dL Normal 6.4-8.2 [facility] Comment on above: Order Comment: DR REMY ORDERED BMP AND MAGNESIUM.DR HAY ORDERED LIPID CMP TSH. RANGLE Performed By: #### L 501.9520, L501.5200, L500.4050, L500.4100 ####[facility] [address] [place], [address] Urea nitrogen [Mass/Vol] 30 mg/dL High 7-18 [facility] Comment on above: Order Comment: DR REMY ORDERED BMP AND MAGNESIUM.DR HAY ORDERED LIPID CMP TSH. RANGLE Performed By: #### L 501.9520, L501.5200, L500.4050, L500.4100 ####[facility] [address] [place], [address] Estimated glomerular filtrat ion rate (GFR) AmericanOrdered By: Jose Hay on 03-23-2024 Estimated GFR (MDRD) Amer 51 mL/min Low >60 [facility] Comment on above: GFR Calc Glomerular filtration rate ( GFR) estimationOrdered By: Jose Hay on 03-23-2024 Estimated GFR (MDRD) Non-Af Amer 42 mL/min Low >60 [facility] Comment on above: Non- GFR Calc Glucose measurementOrdered B y: Jose Hay on 03-23-2024 Glucose [Mass/Vol] 146 mg/dL High 74-106 [facility] Comment on above: Fasting Glucose resu lt greater than or equal to 126 mg/dL suggests DIABETES MELLITUS per A.D.A. criteria. High density lipoprotein (HD L) measurementOrdered By: Jose Hay on 03-23-2024 Cholesterol in HDL [Mass/Vol] 52 mg/dL >40 [facility] Comment on above: The drugs N-Acetylcy steine and Metamizole may falsely depress this assay. Reference Range HDL <40 mg/dL Low HDL Cholesterol HDL >or= 60 mg/dL High HDL Cholesterol Laboratory - Chemistry and C hemistry - challengeOrdered By: Jose Hay on 03-23-2024 AST [Catalytic activity/Vol] 28 U/L 15-37 [facility] Lipid Profileon 03-23-2024 Cholesterol [Mass/Vol] 158 mg/dL Normal 200 [facility] Comment on above: Order Comment: DR REMY ORDERED BMP AND MAGNESIUM.DR HAY ORDERED LIPID CMP TSH. RANGLE Result Comment: <200 mg/dL Desirable 200-240 mg/dL Borderline >240 mg/dL High Risk Performed By: #### L 501.9520, L501.5200, L500.4050, L500.4100 ####[facility] [address] [place], [address] Cholesterol in HDL [Mass/Vol] 52 mg/dL Normal [facility] Comment on above: Order Comment: DR REMY ORDERED BMP AND MAGNESIUM.DR HAY ORDERED LIPID CMP TSH. RANGLE Result Comment: The drugs N-Acetylcysteine and Metamizole may falselydepress this assay. Reference Range HDL <40 mg/dL Low HDL Cholesterol HDL >or= 60 mg/dL High HDL Cholesterol Performed By: #### L 501.9520, L501.5200, L500.4050, L500.4100 ####[facility] [address] [place], [address] Cholesterol in LDL [Mass/Vol] 61 mg/dL Normal 0-130 [facility] Comment on above: Order Comment: DR REMY ORDERED BMP AND MAGNESIUM.DR HAY ORDERED LIPID CMP TSH. RANGLE Performed By: #### L 501.9520, L501.5200, L500.4050, L500.4100 ####[facility] [address] [place], [address] Cholesterol in VLDL [Mass/Vol] 45 mg/dL High 5-40 [facility] Comment on above: Order Comment: DR REMY ORDERED BMP AND MAGNESIUM.DR HAY ORDERED LIPID CMP TSH. RANGLE Performed By: #### L 501.9520, L501.5200, L500.4050, L500.4100 ####[facility] [address] [place], [address] Triglyceride [Mass/Vol] 225 mg/dL High [facility] Comment on above: Order Comment: DR REMY ORDERED BMP AND MAGNESIUM.DR HAY ORDERED LIPID CMP TSH. RANGLE Result Comment: The drugs N-Acetylcysteine and Metamizole may falselydepress this assay.Serum Triglycerides Reference Interval Normal <150 mg/dL Borderline high 150 - 199 mg/dL High 200 - 499 mg/dL Very High > or = 500 mg/dL Performed By: #### L 501.9520, L501.5200, L500.4050, L500.4100 ####[facility] [id number] [place], [address] Low density lipoprotein (LDL ) cholesterol measurementOrdered By: Jose Hay on 03-23-2024 Cholesterol in LDL [Mass/Vol] 61 mg/dL 0-130 [facility] Magnesiumon 03-23-2024 Magnesium [Mass/Vol] 2.1 mg/dL Normal 1.6-2.6 [facility] Comment on above: Order Comment: DR REMY ORDERED BMP AND MAGNESIUM.DR HAY ORDERED LIPID CMP TSH. RANGLE Performed By: #### L [id number], L501.5200, L500.4050, L500.4100 ####[facility] [id number] [place], [place], [id number] Magnesium measurementOrdered By: Jose Hay on 03-23-2024 Magnesium [Mass/Vol] 2.1 mg/dL 1.6-2.6 [facility] Potassium measurementOrdered By: Jose Hay on 03-23-2024 Potassium [Moles/Vol] 4.4 mmol/L 3.5-5.1 [facility] Serum anion gap measurementO rdered By: Jose Hay on 03-23-2024 Anion gap [Moles/Vol] 6 mmol/L 5-15 [facility] Serum globulin measurementOr dered By: Jose Hay on 03-23-2024 Globulin (S) [Mass/Vol] 3.3 g/dL 2.2-4.2 [facility] Serum or plasma alanine guerrero otransferase (ALT) measurementOrdered By: Jose Hay on 03-23-2024 ALT [Catalytic activity/Vol] 52 U/L 16-61 [facility] Serum or plasma albumin francine urement (mass/volume)Ordered By: Jose Hay on 03-23-2024 Albumin [Mass/Vol] 3.7 g/dL 3.2-5.0 [facility] Serum or plasma alkaline bell sphatase measurementOrdered By: Jose Hay on 03-23-2024 ALP [Catalytic activity/Vol] 92 U/L 45-117 [facility] Serum or plasma calcium francine urement (mass/volume)Ordered By: Jose Hay on 03-23-2024 Calcium [Mass/Vol] 8.8 mg/dL 8.5-10.1 [facility] Serum or plasma cholesterol measurement (mass/volume)Ordered By: Jose Hay on 03-23-2024 Cholesterol [Mass/Vol] 158 mg/dL <200 [facility] Comment on above: <200 mg/dL Desirable 200-240 mg/dL Borderline >240 mg/dL High Risk Serum or plasma creatinine m easurement (mass/volume)Ordered By: Jose Hay on 03-23-2024 Creatinine [Mass/Vol] 1.67 mg/dL High 0.70-1.30 [facility] Comment on above: The validity of the calculated GFR & GFRAA in patients over 70 years has not been determined. Clinical correlation is essential. Serum or plasma urea nitroge n measurement (mass/volume)Ordered By: Jose Hay on 03-23-2024 Urea nitrogen [Mass/Vol] 30 mg/dL High 7-18 [facility] Sodium levelOrdered By: Ernst Hay on 03-23-2024 Sodium [Moles/Vol] 138 mmol/L 136-145 [facility] TSH QnOrdered By: Jose rodriguez on 03-23-2024 Thyroid Stimulating Hormone (TSH) 5.340 uIU/mL High 0.358-3.74 0 [facility] Thyroid Stim Hormone (TSH)on 03-23-2024 TSH 5.340 uIU/mL High 0.358-3.74 0 [facility] Comment on above: Order Comment: DR REMY ORDERED BMP AND MAGNESIUM.DR HAY ORDERED LIPID CMP TSH. RANGLE Performed By: #### L [id number], L501.5200, L500.4050, L500.4100 ####[facility] [id number] [place], [address] Total proteinOrdered By: Emmanuel Hay on 03-23-2024 Protein [Mass/Vol] 7.0 g/dL 6.4-8.2 [facility] Triglycerides measurementOrd ered By: Jose Hay on 03-23-2024 Triglyceride [Mass/Vol] 225 mg/dL High <199 [facility] Comment on above: The drugs N-Acetylcy steine and Metamizole may falsely depress this assay.Serum Triglycerides Reference Interval Normal <150 mg/dL Borderline high 150 - 199 mg/dL High 200 - 499 mg/dL Very High > or = 500 mg/dL Very low density lipoprotein (VLDL) cholesterol measurementOrdered By: Jose Hay on 03-23-2024 VLDL Cholesterol 45 mg/dL High 5-40 [facility] Cardiology Visit Reporton Cardiology Visit Report Normal [facility] Basophil percentageOrdered B y: Marycarmen Rodriguez on 05-07-2023 Chloride [Moles/Vol] 103 mmol/L 98-107 [facility] Glucose [Mass/Vol] 172 mg/dL 74-106 [facility] Comment on above: Fasting Glucose resu lt greater than or equal to 126 mg/dL suggests DIABETES MELLITUS per A.D.A. criteria. Potassium [Moles/Vol] 3.7 mmol/L 3.5-5.1 [facility] Sodium [Moles/Vol] 138 mmol/L 136-145 [facility] Laboratory - Chemistry and C hemistry - challengeOrdered By: Marycarmen Rodriguez on 05-07-2023 CO2 [Moles/Vol] 27.0 mmol/L 21.0-32.0 [facility] Urea nitrogen/Creatinine [Mass ratio] 13.9 mg/mg 10-20 [facility] No Panel InformationOrdered By: Marycarmen Rodriguez on 05-07-2023 Estimated GFR (MDRD) Amer 74 mL/min >60 [facility] Comment on above: GFR Calc Estimated GFR (MDRD) Non-Af Amer 61 mL/min >60 [facility] Comment on above: Non- GFR Calc Serum or plasma calcium francine urement (mass/volume)Ordered By: Marycarmen Rodriguez on 05-07-2023 Calcium [Mass/Vol] 8.6 mg/dL 8.5-10.1 [facility] Serum or plasma creatinine m easurement (mass/volume)Ordered By: Marycarmen Rodriguez on 05-07-2023 Creatinine [Mass/Vol] 1.22 mg/dL 0.70-1.30 [facility] Comment on above: The validity of the calculated GFR & GFRAA in patients over 70 years has not been determined. Clinical correlation is essential. Serum or plasma urea nitroge n measurement (mass/volume)Ordered By: Marycarmen Rodriguez on 05-07-2023 Urea nitrogen [Mass/Vol] 17 mg/dL 7-18 [facility] Thin prep Papanicolaou smear with manual screeningOrdered By: Marycarmen Rodriguez on 05-07-2023 Thin prep Papanicolaou smear with manual screening 8 5-15 [facility] Basophil percentageOrdered B y: Jose Hay on 12-15-2022 Chloride [Moles/Vol] 110 mmol/L 98-107 [facility] Glucose [Mass/Vol] 121 mg/dL 74-106 [facility] Comment on above: Fasting Glucose resu lt from 100 to 125 mg/dL suggests IMPAIRED HOMEOSTASIS per A.D.A. criteria. Potassium [Moles/Vol] 4.0 mmol/L 3.5-5.1 [facility] Sodium [Moles/Vol] 139 mmol/L 136-145 [facility] WBC (Bld) [#/Vol] 7.3 10*3/uL 4.4-11.0 [facility] Blood erythrocytes count (nu mber/volume)Ordered By: Jose Hay on 12-15-2022 RBC (Bld) [#/Vol] 5.18 10*6/uL 4.6-6.2 [facility] Blood hemoglobin measurement (mass/volume)Ordered By: Jose Hay on 12-15-2022 Hemoglobin (Bld) [Mass/Vol] 15.2 g/dL 13.0-16.5 [facility] Blood platelet mean volumeOr dered By: Jose Hay on 12-15-2022 Platelet mean volume (Bld) [Entitic vol] 12.2 fL 6.2-12.0 [facility] Determination of erythrocyte mean corpuscular volume (MCV)Ordered By: Jose Hay on 12-15-2022 MCV (RBC) [Entitic vol] 90.2 fL 80-94 [facility] Hematocrit Auto (Bld) [Volum e fraction]Ordered By: Jose Hay on 12-15-2022 Hematocrit (Bld) [Volume fraction] 46.7 % 40-54 [facility] Laboratory - Chemistry and C hemistry - challengeOrdered By: Jose Hay on 12-15-2022 CO2 [Moles/Vol] 23.0 mmol/L 21.0-32.0 [facility] Natriuretic peptide B (Bld) [Mass/Vol] 38.1 pg/mL 0-100 [facility] Urea nitrogen/Creatinine [Mass ratio] 13.5 mg/mg 10-20 [facility] Laboratory - Hematology and Cell countsOrdered By: Jose Hay on 12-15-2022 Erythrocyte distribution width (RBC) [Entitic vol] 47.5 fL 35.1-43.9 [facility] Erythrocyte distribution width (RBC) [Ratio] 14.4 % 11.6-14.6 [facility] MCH (RBC) [Entitic mass] 29.3 pg 27.0-32.0 [facility] MCHC Auto (RBC) [Mass/Vol]Or dered By: Jose Hay on 12-15-2022 MCHC (RBC) [Mass/Vol] 32.5 g/dL 32-36 [facility] No Panel InformationOrdered By: Jose Hay on 12-15-2022 Estimated GFR (MDRD) Amer 83 mL/min >60 [facility] Comment on above: GFR Calc Estimated GFR (MDRD) Non-Af Amer 68 mL/min >60 [facility] Comment on above: Non- GFR Calc Platelets bldOrdered By: Emmanuel Hay on 12-15-2022 Platelets (Bld) [#/Vol] 143 10*3/uL 150-450 [facility] Serum or plasma calcium francine urement (mass/volume)Ordered By: Jose Hay on 12-15-2022 Calcium [Mass/Vol] 8.8 mg/dL 8.5-10.1 [facility] Serum or plasma creatinine m easurement (mass/volume)Ordered By: Jose Hay on 12-15-2022 Creatinine [Mass/Vol] 1.11 mg/dL 0.70-1.30 [facility] Comment on above: The validity of the calculated GFR & GFRAA in patients over 70 years has not been determined. Clinical correlation is essential. Serum or plasma urea nitroge n measurement (mass/volume)Ordered By: Jose Hay on 12-15-2022 Urea nitrogen [Mass/Vol] 15 mg/dL 7-18 [facility] Thin prep Papanicolaou smear with manual screeningOrdered By: Jose Hay on 12-15-2022 Thin prep Papanicolaou smear with manual screening 6 5-15 [facility] Absolute lymphocyte countOrd ered By: Luz Elena Mckeon on 10-13-2022 Lymphocytes Auto (Unsp spec) [#/Vol] 1.21 10*3/uL 0.83-4.51 [facility] Basophil percentageOrdered B y: Luz Elena Mckeon on 10-13-2022 Basophils/100 WBC (Bld) 0.5 % 0-1 [facility] Chloride [Moles/Vol] 106 mmol/L 98-107 [facility] Eosinophils/100 WBC (Bld) 1.4 % 0-5 [facility] Glucose [Mass/Vol] 277 mg/dL 74-106 [facility] Comment on above: Glucose result great er than or equal to 200 mg/dLsuggests DIABETES MELLITUS per A.D.A. criteria. Neutrophils (Bld) [#/Vol] 4.0 10*3/uL 2.0-7.7 [facility] Neutrophils/100 WBC (Bld) 68.5 % 47-70 [facility] Potassium [Moles/Vol] 4.1 mmol/L 3.5-5.1 [facility] Sodium [Moles/Vol] 139 mmol/L 136-145 [facility] WBC (Bld) [#/Vol] 5.8 10*3/uL 4.4-11.0 [facility] Blood erythrocytes count (nu mber/volume)Ordered By: Luz Elena Mckeon on 10-13-2022 RBC (Bld) [#/Vol] 4.66 10*6/uL 4.6-6.2 [facility] Blood hemoglobin measurement (mass/volume)Ordered By: Luz Elena Mckeon on 10-13-2022 Hemoglobin (Bld) [Mass/Vol] 13.6 g/dL 13.0-16.5 [facility] Blood lymphocytes/100 leukoc ytesOrdered By: Luz Elena Mckeon on 10-13-2022 Lymphocytes/100 WBC (Bld) 20.7 % 19-41 [facility] Blood monocytes/100 leukocyt esOrdered By: Luz Elena Mckeon on 10-13-2022 Monocytes/100 WBC (Bld) 8.6 % 0-10 [facility] Blood platelet mean volumeOr dered By: Luz Elena Mckeon on 10-13-2022 Platelet mean volume (Bld) [Entitic vol] 12.6 fL 6.2-12.0 [facility] Determination of erythrocyte mean corpuscular volume (MCV)Ordered By: Luz Elena Mckeon on 10-13-2022 MCV (RBC) [Entitic vol] 89.5 fL 80-94 [facility] Hematocrit Auto (Bld) [Volum e fraction]Ordered By: Luz Elena Mckeon on 10-13-2022 Hematocrit (Bld) [Volume fraction] 41.7 % 40-54 [facility] Laboratory - Chemistry and C hemistry - challengeOrdered By: Luz Elena Mckeon on 10-13-2022 CO2 [Moles/Vol] 27.0 mmol/L 21.0-32.0 [facility] Free T4 [Mass/Vol] 0.77 ng/dL 0.76-1.46 [facility] Magnesium [Mass/Vol] 2.1 mg/dL 1.6-2.6 [facility] Natriuretic peptide B (Bld) [Mass/Vol] 47.2 pg/mL 0-100 [facility] Urea nitrogen/Creatinine [Mass ratio] 17.2 mg/mg 10-20 [facility] Laboratory - Hematology and Cell countsOrdered By: Luz Elena Mckeon on 10-13-2022 Erythrocyte distribution width (RBC) [Entitic vol] 46.1 fL 35.1-43.9 [facility] Erythrocyte distribution width (RBC) [Ratio] 14.1 % 11.6-14.6 [facility] Immature granulocytes/100 WBC (Bld) 0.300 % 0.0-0.9 [facility] Comment on above: IG% - Immature Granu locytes (promyelocytes, myelocytes and metamyelocytes) > 1% indicates that a LEFT SHIFT is Present. MCH (RBC) [Entitic mass] 29.2 pg 27.0-32.0 [facility] Nucleated RBC/100 [facility] (Bld) [[facility]] 0 % [facility]5 [facility] [Mass/Vol]Or dered By: Luz Elena Mckeon on 10-13-2022 MCHC (RBC) [Mass/Vol] 32.6 g/dL 32-36 [facility] No Panel InformationOrdered By: Luz Elena Mckeon on 10-13-2022 Estimated GFR (MDRD) Amer 61 mL/min >60 [facility] Comment on above: GFR Calc Estimated GFR (MDRD) Non-Af Amer 50 mL/min >60 [facility] Comment on above: Non- GFR Calc Free Triiodothyronine (T3) pg/dL 2.7 pg/mL 2.18-3.98 [facility] Thyroid Stimulating Hormone (TSH) 4.12 uIU/mL 0.358-3.74 [facility] Platelets bldOrdered By: Loco Mckeon on 10-13-2022 Platelets (Bld) [#/Vol] 126 10*3/uL 150-450 [facility] Serum or plasma calcium francine urement (mass/volume)Ordered By: Luz Elena Mckeon on 10-13-2022 Calcium [Mass/Vol] 8.5 mg/dL 8.5-10.1 [facility] Serum or plasma creatinine m easurement (mass/volume)Ordered By: Luz Elena Mckeon on 10-13-2022 Creatinine [Mass/Vol] 1.45 mg/dL 0.70-1.30 [facility] Comment on above: The validity of the calculated GFR & GFRAA in patients over 70 years has not been determined. Clinical correlation is essential. Serum or plasma urea nitroge n measurement (mass/volume)Ordered By: Luz Elena Mckeon on 10-13-2022 Urea nitrogen [Mass/Vol] 25 mg/dL 7-18 [facility] Thin prep Papanicolaou smear with manual screeningOrdered By: Luz Elena Mckeon on 10-13-2022 Thin prep Papanicolaou smear with manual screening 6 5-15 [facility] COVID-19 virus antigen assay Ordered By: Shaan Santos on 09-21-2022 SARS-CoV-2 (COVID-19) Ag IA.rapid Ql (Resp) [facility] COVID-19 virus antigen assay Ordered By: Dr. Santos on 09-21-2022 SARS-CoV-2 (COVID-19) Ag IA.rapid Ql (Resp) [facility] Glucose Glucometer (BldC) [M ass/Vol]Ordered By: Dr. Santos on 09-21-2022 Glucose [Mass/Vol] 193 mg/dL 74-106 [facility] Comment on above: MANAGEMENT OF PATIEN T CARE PER NURSING PROTOCOL Absolute lymphocyte countOrd ered By: Dr. Leo on 09-18-2022 Lymphocytes Auto (Unsp spec) [#/Vol] 1.83 10*3/uL 0.83-4.51 [facility] Basophil percentageOrdered B y: Dr. Leo on 09-18-2022 Basophils/100 WBC (Bld) 0.3 % 0-1 [facility] Bilirubin [Mass/Vol] 1.20 mg/dL 0.20-1.00 [facility] Comment on above: For patients on eltr ombopag therapy, use of Dimension [place] TBIL is not recommended. Chloride [Moles/Vol] 108 mmol/L 98-107 [facility] Cholesterol [Mass/Vol] 114 mg/dL <200 [facility] Comment on above: <200 mg/dL Desirable 200-240 mg/dL Borderline >240 mg/dL High Risk Eosinophils/100 WBC (Bld) 2.0 % 0-5 [facility] Glucose [Mass/Vol] 87 mg/dL 74-106 [facility] Neutrophils (Bld) [#/Vol] 4.3 10*3/uL 2.0-7.7 [facility] Neutrophils/100 WBC (Bld) 60.9 % 47-70 [facility] Potassium [Moles/Vol] 3.5 mmol/L 3.5-5.1 [facility] Protein [Mass/Vol] 5.9 g/dL 6.4-8.2 [facility] Sodium [Moles/Vol] 142 mmol/L 136-145 [facility] Triglyceride [Mass/Vol] 174 mg/dL <199 [facility] Comment on above: The drugs N-Acetylcy steine and Metamizole may falsely depress this assay.Serum Triglycerides Reference Interval Normal <150 mg/dL Borderline high 150 - 199 mg/dL High 200 - 499 mg/dL Very High > or = 500 mg/dL WBC (Bld) [#/Vol] 7.0 10*3/uL 4.4-11.0 [facility] Blood erythrocytes count (nu mber/volume)Ordered By: Dr. Leo on 09-18-2022 RBC (Bld) [#/Vol] 4.64 10*6/uL 4.6-6.2 [facility] Blood hemoglobin measurement (mass/volume)Ordered By: Dr. Leo on 09-18-2022 Hemoglobin (Bld) [Mass/Vol] 13.2 g/dL 13.0-16.5 [facility] Blood lymphocytes/100 leukoc ytesOrdered By: Dr. Leo on 09-18-2022 Lymphocytes/100 WBC (Bld) 26.1 % 19-41 [facility] Blood monocytes/100 leukocyt esOrdered By: Dr. Leo on 09-18-2022 Monocytes/100 WBC (Bld) 10.4 % 0-10 [facility] Blood platelet mean volumeOr dered By: Dr. Leo on 09-18-2022 Platelet mean volume (Bld) [Entitic vol] 12.3 fL 6.2-12.0 [facility] Determination of erythrocyte mean corpuscular volume (MCV)Ordered By: Dr. Leo on 09-18-2022 MCV (RBC) [Entitic vol] 90.1 fL 80-94 [facility] Hematocrit Auto (Bld) [Volum e fraction]Ordered By: Dr. Leo on 09-18-2022 Hematocrit (Bld) [Volume fraction] 41.8 % 40-54 [facility] Laboratory - Chemistry and C hemistry - challengeOrdered By: Dr. Leo on 09-18-2022 ALP [Catalytic activity/Vol] 113 U/L 45-117 [facility] ALT [Catalytic activity/Vol] 31 U/L 16-61 [facility] CO2 [Moles/Vol] 26.0 mmol/L 21.0-32.0 [facility] Globulin (S) [Mass/Vol] 3.0 g/dL 2.2-4.2 [facility] Urea nitrogen/Creatinine [Mass ratio] 13.4 mg/mg 10-20 [facility] Laboratory - Hematology and Cell countsOrdered By: Dr. Leo on 09-18-2022 Erythrocyte distribution width (RBC) [Entitic vol] 46.9 fL 35.1-43.9 [facility] Erythrocyte distribution width (RBC) [Ratio] 14.4 % 11.6-14.6 [facility] Immature granulocytes/100 WBC (Bld) 0.300 % 0.0-0.9 [facility] Comment on above: IG% - Immature Granu locytes (promyelocytes, myelocytes and metamyelocytes) > 1% indicates that a LEFT SHIFT is Present. MCH (RBC) [Entitic mass] 28.4 pg 27.0-32.0 [facility] Nucleated RBC/100 WBC (Bld) [Ratio] 0 % 0-5 [facility] MCHC Auto (RBC) [Mass/Vol]Or dered By: Dr. Leo on 09-18-2022 MCHC (RBC) [Mass/Vol] 31.6 g/dL 32-36 [facility] No Panel InformationOrdered By: Dr. Leo on 09-18-2022 Estimated Creatinine Clearance Calc 47.13 ml/min [facility] Estimated GFR (MDRD) Amer 71 mL/min >60 [facility] Comment on above: GFR Calc Estimated GFR (MDRD) Non-Af Amer 58 mL/min >60 [facility] Comment on above: Non- GFR Calc Thyroid Stimulating Hormone (TSH) 3.64 uIU/mL 0.358-3.74 [facility] Troponin I High Sensitivity 8 pg/mL 3.0-78.0 [facility] Comment on above: Please Note: [place] t Units and Gender Specific Reference Ranges. For more information see Policy Stat Procedure [place] High Sensitivity Troponin (TNIH) and attachments. Platelets bldOrdered By: Dr. Leo on 09-18-2022 Platelets (Bld) [#/Vol] 131 10*3/uL 150-450 [facility] Serum or plasma albumin francine urement (mass/volume)Ordered By: Dr. Leo on 09-18-2022 Albumin [Mass/Vol] 2.9 g/dL 3.2-5.0 [facility] Serum or plasma albumin/glob ulin mass ratioOrdered By: Dr. Leo on 09-18-2022 Albumin/Globulin [Mass ratio] 1.0 {ratio} 0.9-2.4 [facility] Serum or plasma calcium francine urement (mass/volume)Ordered By: Dr. Leo on 09-18-2022 Calcium [Mass/Vol] 7.6 mg/dL 8.5-10.1 [facility] Serum or plasma cholesterol in HDL measurement (mass/volume)Ordered By: Dr. Leo on 09-18-2022 Cholesterol in HDL [Mass/Vol] 36 mg/dL >40 [facility] Comment on above: The drugs N-Acetylcy steine and Metamizole may falsely depress this assay. Reference Range HDL <40 mg/dL Low HDL Cholesterol HDL >or= 60 mg/dL High HDL Cholesterol Serum or plasma cholesterol in VLDL measurement (mass/volume)Ordered By: Dr. Leo on 09-18-2022 Cholesterol in VLDL [Mass/Vol] 35 mg/dL 5-40 [facility] Serum or plasma creatinine m easurement (mass/volume)Ordered By: Dr. Leo on 09-18-2022 Creatinine [Mass/Vol] 1.27 mg/dL 0.70-1.30 [facility] Comment on above: The validity of the calculated GFR & GFRAA in patients over 70 years has not been determined. Clinical correlation is essential. Serum or plasma low density lipoprotein (LDL) cholesterol measurement (mass/volume)Ordered By: Dr. Leo on 09-18-2022 Cholesterol in LDL [Mass/Vol] 43 mg/dL 0-130 [facility] Serum or plasma urea nitroge n measurement (mass/volume)Ordered By: Dr. Leo on 09-18-2022 Urea nitrogen [Mass/Vol] 17 mg/dL 7-18 [facility] Thin prep Papanicolaou smear with manual screeningOrdered By: Dr. Leo on 09-18-2022 Thin prep Papanicolaou smear with manual screening 21 U/L 15-37 [facility] Thin prep Papanicolaou smear with manual screening 8 5-15 [facility] Whole blood hemoglobin A1c/t otal hemoglobin ratio (mass fraction)Ordered By: Dr. Leo on 09-18-2022 HbA1c (Bld) [Mass fraction] 7.7 % 3.8-5.6 [facility] Comment on above: Normal < 5.7 % Predi abetic 5.7 - 6.4 % Diabetic >or= 6.5 % Please note range changes. INR in Blood by Coagulation assayOrdered By: Dr. Hall on 09-17-2022 INR Coag (Bld) [Relative time] 0.9 {INR} [facility] Laboratory - Chemistry and C hemistry - challengeOrdered By: Dr. Leo on 09-17-2022 Magnesium [Mass/Vol] 2.3 mg/dL 1.6-2.6 [facility] Laboratory - CoagulationOrde red By: Dr. Hall on 09-17-2022 aPTT Coag (Bld) [Time] 32.1 s 24.1-36.2 [facility] PT Coag (PPP) [Time] 12.3 s 11.7-14.9 [facility] Basophil percentageOrdered B y: Dr. Hay on 09-01-2022 Bilirubin [Mass/Vol] 0.70 mg/dL 0.20-1.00 [facility] Comment on above: For patients on eltr ombopag therapy, use of Dimension [place] TBIL is not recommended. Chloride [Moles/Vol] 112 mmol/L 98-107 [facility] Glucose [Mass/Vol] 151 mg/dL 74-106 [facility] Comment on above: Fasting Glucose resu lt greater than or equal to 126 mg/dL suggests DIABETES MELLITUS per A.D.A. criteria. Potassium [Moles/Vol] 3.9 mmol/L 3.5-5.1 [facility] Protein [Mass/Vol] 5.7 g/dL 6.4-8.2 [facility] Sodium [Moles/Vol] 142 mmol/L 136-145 [facility] WBC (Bld) [#/Vol] 4.7 10*3/uL 4.4-11.0 [facility] Blood erythrocytes count (nu mber/volume)Ordered By: Dr. Hay on 09-01-2022 RBC (Bld) [#/Vol] 4.60 10*6/uL 4.6-6.2 [facility] Blood hemoglobin measurement (mass/volume)Ordered By: Dr. Hay on 09-01-2022 Hemoglobin (Bld) [Mass/Vol] 13.0 g/dL 13.0-16.5 [facility] Blood platelet mean volumeOr dered By: Dr. Hay on 09-01-2022 Platelet mean volume (Bld) [Entitic vol] 12.8 fL 6.2-12.0 [facility] Determination of erythrocyte mean corpuscular volume (MCV)Ordered By: Dr. Hay on 09-01-2022 MCV (RBC) [Entitic vol] 89.1 fL 80-94 [facility] Hematocrit Auto (Bld) [Volum e fraction]Ordered By: Dr. Hay on 09-01-2022 Hematocrit (Bld) [Volume fraction] 41.0 % 40-54 [facility] Laboratory - Chemistry and C hemistry - challengeOrdered By: Dr. Hay on 09-01-2022 ALP [Catalytic activity/Vol] 149 U/L 45-117 [facility] ALT [Catalytic activity/Vol] 35 U/L 16-61 [facility] CO2 [Moles/Vol] 27.0 mmol/L 21.0-32.0 [facility] Globulin (S) [Mass/Vol] 2.9 g/dL 2.2-4.2 [facility] Urea nitrogen/Creatinine [Mass ratio] 15.8 mg/mg 10-20 [facility] Laboratory - Hematology and Cell countsOrdered By: Dr. Hay on 09-01-2022 Erythrocyte distribution width (RBC) [Entitic vol] 44.1 fL 35.1-43.9 [facility] Erythrocyte distribution width (RBC) [Ratio] 13.5 % 11.6-14.6 [facility] MCH (RBC) [Entitic mass] 28.3 pg 27.0-32.0 [facility] MCHC Auto (RBC) [Mass/Vol]Or dered By: Dr. Hay on 09-01-2022 MCHC (RBC) [Mass/Vol] 31.7 g/dL 32-36 [facility] No Panel InformationOrdered By: Dr. Hay on 09-01-2022 Estimated Creatinine Clearance Calc 46.51 ml/min [facility] Estimated GFR (MDRD) Amer 67 mL/min >60 [facility] Comment on above: GFR Calc Estimated GFR (MDRD) Non-Af Amer 55 mL/min >60 [facility] Comment on above: Non- GFR Calc Platelets bldOrdered By: Dr. Hay on 09-01-2022 Platelets (Bld) [#/Vol] 106 10*3/uL 150-450 [facility] Serum or plasma albumin francine urement (mass/volume)Ordered By: Dr. Hay on 09-01-2022 Albumin [Mass/Vol] 2.8 g/dL 3.2-5.0 [facility] Serum or plasma albumin/glob ulin mass ratioOrdered By: Dr. Hay on 09-01-2022 Albumin/Globulin [Mass ratio] 1.0 {ratio} 0.9-2.4 [facility] Serum or plasma calcium francine urement (mass/volume)Ordered By: Dr. Hay on 09-01-2022 Calcium [Mass/Vol] 8.0 mg/dL 8.5-10.1 [facility] Serum or plasma creatinine m easurement (mass/volume)Ordered By: Dr. Hay on 09-01-2022 Creatinine [Mass/Vol] 1.33 mg/dL 0.70-1.30 [facility] Comment on above: The validity of the calculated GFR & GFRAA in patients over 70 years has not been determined. Clinical correlation is essential. Serum or plasma urea nitroge n measurement (mass/volume)Ordered By: Dr. Hay on 09-01-2022 Urea nitrogen [Mass/Vol] 21 mg/dL 7-18 [facility] [facility] Thin prep Papanicolaou smear with manual screeningOrdered By: Dr. Hay on 09-01-2022 Thin prep Papanicolaou smear with manual screening 21 U/L 15-37 [facility] Thin prep Papanicolaou smear with manual screening 3 5-15 [facility] No Panel InformationOrdered By: Dr. Hay on 08-31-2022 Activated Clotting Time 275 sec 74-137 [facility] Basophil percentageOrdered B y: Dr. Hay on 08-19-2022 Chloride [Moles/Vol] 108 mmol/L 98-107 [facility] Glucose [Mass/Vol] 158 mg/dL 74-106 [facility] Comment on above: Fasting Glucose resu lt greater than or equal to 126 mg/dL suggests DIABETES MELLITUS per A.D.A. criteria. Potassium [Moles/Vol] 4.3 mmol/L 3.5-5.1 [facility] Sodium [Moles/Vol] 137 mmol/L 136-145 [facility] WBC (Bld) [#/Vol] 8.2 10*3/uL 4.4-11.0 [facility] Blood erythrocytes count (nu mber/volume)Ordered By: Dr. Hay on 08-19-2022 RBC (Bld) [#/Vol] 5.05 10*6/uL 4.6-6.2 [facility] Blood hemoglobin measurement (mass/volume)Ordered By: Dr. Hay on 08-19-2022 Hemoglobin (Bld) [Mass/Vol] 14.3 g/dL 13.0-16.5 [facility] Blood platelet mean volumeOr dered By: Dr. Hay on 08-19-2022 Platelet mean volume (Bld) [Entitic vol] 12.5 fL 6.2-12.0 [facility] Determination of erythrocyte mean corpuscular volume (MCV)Ordered By: Dr. Hay on 08-19-2022 MCV (RBC) [Entitic vol] 88.3 fL 80-94 [facility] Hematocrit Auto (Bld) [Volum e fraction]Ordered By: Dr. Hay on 08-19-2022 Hematocrit (Bld) [Volume fraction] 44.6 % 40-54 [facility] INR in Blood by Coagulation assayOrdered By: Dr. Hay on 08-19-2022 INR Coag (Bld) [Relative time] 1.1 {INR} [facility] Laboratory - Chemistry and C hemistry - challengeOrdered By: Dr. Hay on 08-19-2022 CO2 [Moles/Vol] 25.0 mmol/L 21.0-32.0 [facility] Urea nitrogen/Creatinine [Mass ratio] 12.0 mg/mg 10-20 [facility] Laboratory - CoagulationOrde red By: Dr. Hay on 08-19-2022 aPTT Coag (Bld) [Time] 30.9 s 24.1-36.2 [facility] PT Coag (PPP) [Time] 13.4 s 11.7-14.9 [facility] Laboratory - Hematology and Cell countsOrdered By: Dr. Hay on 08-19-2022 Erythrocyte distribution width (RBC) [Entitic vol] 44.8 fL 35.1-43.9 [facility] Erythrocyte distribution width (RBC) [Ratio] 13.9 % 11.6-14.6 [facility] MCH (RBC) [Entitic mass] 28.3 pg 27.0-32.0 [facility] MCHC Auto (RBC) [Mass/Vol]Or dered By: Dr. Hay on 08-19-2022 MCHC (RBC) [Mass/Vol] 32.1 g/dL 32-36 [facility] No Panel InformationOrdered By: Dr. Hay on 08-19-2022 Estimated GFR (MDRD) Amer 72 mL/min >60 [facility] Comment on above: GFR Calc Estimated GFR (MDRD) Non-Af Amer 60 mL/min >60 [facility] Comment on above: Non- GFR Calc Platelets bldOrdered By: Dr. Hay on 08-19-2022 Platelets (Bld) [#/Vol] 151 10*3/uL 150-450 [facility] Serum or plasma calcium francine urement (mass/volume)Ordered By: Dr. Hay on 08-19-2022 Calcium [Mass/Vol] 9.0 mg/dL 8.5-10.1 [facility] Serum or plasma creatinine m easurement (mass/volume)Ordered By: Dr. Hay on 08-19-2022 Creatinine [Mass/Vol] 1.25 mg/dL 0.70-1.30 [facility] Comment on above: The validity of the calculated GFR & GFRAA in patients over 70 years has not been determined. Clinical correlation is essential. Serum or plasma urea nitroge n measurement (mass/volume)Ordered By: Dr. Hay on 08-19-2022 Urea nitrogen [Mass/Vol] 15 mg/dL 7-18 [facility] Thin prep Papanicolaou smear with manual screeningOrdered By: Dr. Hay on 08-19-2022 Thin prep Papanicolaou smear with manual screening 4 5-15 [facility] Basophil percentageOrdered B y: Dr. Rodriguez on 06-11-2022 Chloride [Moles/Vol] 102 mmol/L 98-107 [facility] Glucose [Mass/Vol] 274 mg/dL 74-106 [facility] Comment on above: Glucose result great er than or equal to 200 mg/dLsuggests DIABETES MELLITUS per A.D.A. criteria. Potassium [Moles/Vol] 4.3 mmol/L 3.5-5.1 [facility] Sodium [Moles/Vol] 136 mmol/L 136-145 [facility] Laboratory - Chemistry and C hemistry - challengeOrdered By: Dr. Rodriguez on 06-11-2022 CO2 [Moles/Vol] 24.0 mmol/L 21.0-32.0 [facility] Magnesium [Mass/Vol] 2.2 mg/dL 1.6-2.6 [facility] Urea nitrogen/Creatinine [Mass ratio] 15.7 mg/mg 10-20 [facility] No Panel InformationOrdered By: Dr. Rodriguez on 06-11-2022 Estimated GFR (MDRD) Amer 67 mL/min >60 [facility] Comment on above: GFR Calc Estimated GFR (MDRD) Non-Af Amer 55 mL/min >60 [facility] Comment on above: Non- GFR Calc Serum or plasma calcium francine urement (mass/volume)Ordered By: Dr. Rodriguez on 06-11-2022 Calcium [Mass/Vol] 8.7 mg/dL 8.5-10.1 [facility] Serum or plasma creatinine m easurement (mass/volume)Ordered By: Dr. Rodriguez on 06-11-2022 Creatinine [Mass/Vol] 1.34 mg/dL 0.70-1.30 [facility] Comment on above: The validity of the calculated GFR & GFRAA in patients over 70 years has not been determined. Clinical correlation is essential. Serum or plasma urea nitroge n measurement (mass/volume)Ordered By: Dr. Rodriguez on 06-11-2022 Urea nitrogen [Mass/Vol] 21 mg/dL 7-18 [facility] Thin prep Papanicolaou smear with manual screeningOrdered By: Dr. Rodriguez on 06-11-2022 Thin prep Papanicolaou smear with manual screening 10 5-15 [facility] Absolute lymphocyte countOrd ered By: Luz Elena Mckeon on 04-14-2022 Lymphocytes Auto (Unsp spec) [#/Vol] 1.60 10*3/uL 0.83-4.51 [facility] Basophil percentageOrdered B y: Luz Elena Mckeon on 04-14-2022 Basophils/100 WBC (Bld) 0.3 % 0-1 [facility] Chloride [Moles/Vol] 106 mmol/L 98-107 [facility] Eosinophils/100 WBC (Bld) 1.5 % 0-5 [facility] Glucose [Mass/Vol] 211 mg/dL 74-106 [facility] Comment on above: Glucose result great er than or equal to 200 mg/dLsuggests DIABETES MELLITUS per A.D.A. criteria. Neutrophils (Bld) [#/Vol] 3.8 10*3/uL 2.0-7.7 [facility] Neutrophils/100 WBC (Bld) 61.3 % 47-70 [facility] Potassium [Moles/Vol] 4.4 mmol/L 3.5-5.1 [facility] Sodium [Moles/Vol] 136 mmol/L 136-145 [facility] WBC (Bld) [#/Vol] 6.2 10*3/uL 4.4-11.0 [facility] Blood erythrocytes count (nu mber/volume)Ordered By: Luz Elena Mckeon on 04-14-2022 RBC (Bld) [#/Vol] 4.87 10*6/uL 4.6-6.2 [facility] Blood hemoglobin measurement (mass/volume)Ordered By: Luz Elena Mckeon on 04-14-2022 Hemoglobin (Bld) [Mass/Vol] 14.1 g/dL 13.0-16.5 [facility] Blood lymphocytes/100 leukoc ytesOrdered By: Luz Elena Mckeon on 04-14-2022 Lymphocytes/100 WBC (Bld) 25.8 % 19-41 [facility] Blood monocytes/100 leukocyt esOrdered By: Luz Elena Mckeon on 04-14-2022 Monocytes/100 WBC (Bld) 10.8 % 0-10 [facility] Blood platelet mean volumeOr dered By: Luz Elena Mckeon on 04-14-2022 Platelet mean volume (Bld) [Entitic vol] 12.8 fL 6.2-12.0 [facility] Determination of erythrocyte mean corpuscular volume (MCV)Ordered By: Luz Elena Mckeon on 04-14-2022 MCV (RBC) [Entitic vol] 88.1 fL 80-94 [facility] Hematocrit Auto (Bld) [Volum e fraction]Ordered By: Luz Elena Mckeon on 04-14-2022 Hematocrit (Bld) [Volume fraction] 42.9 % 40-54 [facility] Laboratory - Chemistry and C hemistry - challengeOrdered By: Luz Elena Mckeon on 04-14-2022 CO2 [Moles/Vol] 25.0 mmol/L 21.0-32.0 [facility] Natriuretic peptide B (Bld) [Mass/Vol] 54.2 pg/mL 0-100 [facility] Urea nitrogen/Creatinine [Mass ratio] 13.3 mg/mg 10-20 [facility] Laboratory - Hematology and Cell countsOrdered By: Luz Elena Mckeon on 04-14-2022 Erythrocyte distribution width (RBC) [Entitic vol] 44.7 fL 35.1-43.9 [facility] Erythrocyte distribution width (RBC) [Ratio] 13.9 % 11.6-14.6 [facility] Immature granulocytes/100 WBC (Bld) 0.300 % 0.0-0.9 [facility] Comment on above: IG% - Immature Granu locytes (promyelocytes, myelocytes and metamyelocytes) > 1% indicates that a LEFT SHIFT is Present. MCH (RBC) [Entitic mass] 29.0 pg 27.0-32.0 [facility] Nucleated RBC/100 WBC (Bld) [Ratio] 0 % 0-5 [facility] MCHC Auto (RBC) [Mass/Vol]Or dered By: Luz Elena Mckeon on 04-14-2022 MCHC (RBC) [Mass/Vol] 32.9 g/dL 32-36 [facility] No Panel InformationOrdered By: Luz Elena Mckeon on 04-14-2022 Estimated GFR (MDRD) Amer 81 mL/min >60 [facility] Comment on above: GFR Calc Estimated GFR (MDRD) Non-Af Amer 67 mL/min >60 [facility] Comment on above: Non- GFR Calc Platelets bldOrdered By: Loco Mckeon on 04-14-2022 Platelets (Bld) [#/Vol] 150 10*3/uL 150-450 [facility] Serum or plasma calcium francine urement (mass/volume)Ordered By: Luz Elena Mckeon on 04-14-2022 Calcium [Mass/Vol] 8.4 mg/dL 8.5-10.1 [facility] Serum or plasma creatinine m easurement (mass/volume)Ordered By: Luz Elena Mckeon on 04-14-2022 Creatinine [Mass/Vol] 1.13 mg/dL 0.70-1.30 [facility] Comment on above: The validity of the calculated GFR & GFRAA in patients over 70 years has not been determined. Clinical correlation is essential. Serum or plasma urea nitroge n measurement (mass/volume)Ordered By: Luz Elena Mckeon on 04-14-2022 Urea nitrogen [Mass/Vol] 15 mg/dL 7-18 [facility] Thin prep Papanicolaou smear with manual screeningOrdered By: Luz Elena Mckeon on 04-14-2022 Thin prep Papanicolaou smear with manual screening 5 5-15 [facility] Laboratory - Microbiology an d Antimicrobial susceptibilityon 03-27-2022 SARS-CoV-2 (COVID-19) RNA REAGAN+probe Ql (Unsp spec) Detected [facility] No Panel Informationon 03-27 Influenza Types A,B Rapid (Clinic) Not detected [facility] Absolute lymphocyte counton 11-21-2021 Lymphocytes Auto (Unsp spec) [#/Vol] 1.23 10*3/uL 0.83-4.51 [facility] Work Phone: Basophil percentageon 2021 Basophils/100 WBC (Bld) 0.3 % 0-1 [facility] Work Phone: Chloride [Moles/Vol] 106 mmol/L 98-107 [facility] Work Phone: [phone] Eosinophils/100 WBC (Bld) 1.2 % 0-5 [facility] Work Phone: Glucose [Mass/Vol] 166 mg/dL 74-106 [facility] Work Phone: Comment on above: Fasting Glucose resu lt greater than or equal to 126 mg/dL suggests DIABETES MELLITUS per A.D.A. criteria. Neutrophils (Bld) [#/Vol] 4.7 10*3/uL 2.0-7.7 [facility] Work Phone: Neutrophils/100 WBC (Bld) 69.8 % 47-70 [facility] Work Phone: Potassium [Moles/Vol] 4.2 mmol/L 3.5-5.1 [facility] Work Phone: Sodium [Moles/Vol] 140 mmol/L 136-145 [facility] Work Phone: WBC (Bld) [#/Vol] 6.7 10*3/uL 4.4-11.0 [facility] Work Phone: Blood erythrocytes count (nu mber/volume)on 11-21-2021 RBC (Bld) [#/Vol] 5.06 10*6/uL 4.6-6.2 [facility] Work Phone: Blood hemoglobin measurement (mass/volume)on 11-21-2021 Hemoglobin (Bld) [Mass/Vol] 14.3 g/dL 13.0-16.5 [facility] Work Phone: Blood lymphocytes/100 leukoc yteson 11-21-2021 Lymphocytes/100 WBC (Bld) 18.4 % 19-41 [facility] Work Phone: Blood monocytes/100 leukocyt eson 11-21-2021 Monocytes/100 WBC (Bld) 9.9 % 0-10 [facility] Work Phone: Blood platelet mean volumeon 11-21-2021 Platelet mean volume (Bld) [Entitic vol] 12.4 fL 6.2-12.0 [facility] Work Phone: Determination of erythrocyte mean corpuscular volume (MCV)on 11-21-2021 MCV (RBC) [Entitic vol] 89.1 fL 80-94 [facility] Work Phone: [phone] Hematocrit Auto (Bld) [Volum e fraction]on 11-21-2021 Hematocrit (Bld) [Volume fraction] 45.1 % 40-54 [facility] Work Phone: Laboratory - Chemistry and C hemistry - challengeon 11-21-2021 CO2 [Moles/Vol] 27.0 mmol/L 21.0-32.0 [facility] Work Phone: Natriuretic peptide B (Bld) [Mass/Vol] 60.9 pg/mL 0-100 [facility] Work Phone: Urea nitrogen/Creatinine [Mass ratio] 12.9 mg/mg 10-20 [facility] Work Phone: Laboratory - Hematology and Cell countson 11-21-2021 Erythrocyte distribution width (RBC) [Entitic vol] 45.1 fL 35.1-43.9 [facility] Work Phone: Erythrocyte distribution width (RBC) [Ratio] 14.0 % 11.6-14.6 [facility] Work Phone: Immature granulocytes/100 WBC (Bld) 0.400 % 0.0-0.9 [facility] Work Phone: Comment on above: IG% - Immature Granu locytes (promyelocytes, myelocytes and metamyelocytes) > 1% indicates that a LEFT SHIFT is Present. MCH (RBC) [Entitic mass] 28.3 pg 27.0-32.0 [facility] Work Phone: Nucleated RBC/100 WBC (Bld) [Ratio] 0 % 0-5 [facility] Work Phone: MCHC Auto (RBC) [Mass/Vol]on 11-21-2021 MCHC (RBC) [Mass/Vol] 31.7 g/dL 32-36 [facility] Work Phone: No Panel Informationon 11-21 Estimated GFR (MDRD) Amer 63 mL/min >60 [facility] Work Phone: Comment on above: GFR Calc Estimated GFR (MDRD) Non-Af Amer 52 mL/min >60 [facility] Work Phone: Comment on above: Non- GFR Calc Platelets bldon 11-21-2021 Platelets (Bld) [#/Vol] 135 10*3/uL 150-450 [facility] Work Phone: Serum or plasma calcium francine urement (mass/volume)on 11-21-2021 Calcium [Mass/Vol] 8.9 mg/dL 8.5-10.1 [facility] Work Phone: Serum or plasma creatinine m easurement (mass/volume)on 11-21-2021 Creatinine [Mass/Vol] 1.40 mg/dL 0.70-1.30 [facility] Work Phone: Comment on above: The validity of the calculated GFR & GFRAA in patients over 70 years has not been determined. Clinical correlation is essential. Serum or plasma urea nitroge n measurement (mass/volume)on 11-21-2021 Urea nitrogen [Mass/Vol] 18 mg/dL 7-18 [facility] Work Phone: Thin prep Papanicolaou smear with manual screeningon 11-21-2021 Thin prep Papanicolaou smear with manual screening 7 5-15 [facility] Work Phone: Absolute lymphocyte counton 11-16-2021 Lymphocytes Auto (Unsp spec) [#/Vol] 2.06 10*3/uL 0.83-4.51 [facility] Work Phone: Basophil percentageon 2021 Basophils/100 WBC (Bld) 0.3 % 0-1 [facility] Work Phone: Chloride [Moles/Vol] 104 mmol/L 98-107 [facility] Work Phone: Eosinophils/100 WBC (Bld) 1.4 % 0-5 [facility] Work Phone: Glucose [Mass/Vol] 170 mg/dL 74-106 [facility] Work Phone: Comment on above: Fasting Glucose resu lt greater than or equal to 126 mg/dL suggests DIABETES MELLITUS per A.D.A. criteria. Neutrophils (Bld) [#/Vol] 5.0 10*3/uL 2.0-7.7 [facility] Work Phone: Neutrophils/100 WBC (Bld) 62.3 % 47-70 [facility] Work Phone: Potassium [Moles/Vol] 4.4 mmol/L 3.5-5.1 [facility] Work Phone: Comment on above: Slight Hemolysis, Re sult may be falsely increased. Sodium [Moles/Vol] 137 mmol/L 136-145 [facility] Work Phone: WBC (Bld) [#/Vol] 7.9 10*3/uL 4.4-11.0 [facility] Work Phone: Blood erythrocytes count (nu mber/volume)on 11-16-2021 RBC (Bld) [#/Vol] 5.42 10*6/uL 4.6-6.2 [facility] Work Phone: Blood hemoglobin measurement (mass/volume)on 11-16-2021 Hemoglobin (Bld) [Mass/Vol] 15.6 g/dL 13.0-16.5 [facility] Work Phone: Blood lymphocytes/100 leukoc yteson 11-16-2021 Lymphocytes/100 WBC (Bld) 26.0 % 19-41 [facility] Work Phone: Blood monocytes/100 leukocyt eson 11-16-2021 Monocytes/100 WBC (Bld) 9.6 % 0-10 [facility] Work Phone: Blood platelet mean volumeon 11-16-2021 Platelet mean volume (Bld) [Entitic vol] 12.9 fL 6.2-12.0 [facility] Work Phone: Determination of erythrocyte mean corpuscular volume (MCV)on 11-16-2021 MCV (RBC) [Entitic vol] 89.3 fL 80-94 [facility] Work Phone: Hematocrit Auto (Bld) [Volum e fraction]on 11-16-2021 Hematocrit (Bld) [Volume fraction] 48.4 % 40-54 [facility] Work Phone: Laboratory - Chemistry and C hemistry - challengeon 11-16-2021 CO2 [Moles/Vol] 27.0 mmol/L 21.0-32.0 [facility] Work Phone: Urea nitrogen/Creatinine [Mass ratio] 11.6 mg/mg 10-20 [facility] Work Phone: Laboratory - Hematology and Cell countson 11-16-2021 Erythrocyte distribution width (RBC) [Entitic vol] 44.5 fL 35.1-43.9 [facility] Work Phone: Erythrocyte distribution width (RBC) [Ratio] 13.8 % 11.6-14.6 [facility] Work Phone: Immature granulocytes/100 WBC (Bld) 0.400 % 0.0-0.9 [facility] Work Phone: Comment on above: IG% - Immature Granu locytes (promyelocytes, myelocytes and metamyelocytes) > 1% indicates that a LEFT SHIFT is Present. MCH (RBC) [Entitic mass] 28.8 pg 27.0-32.0 [facility] Work Phone: Nucleated RBC/100 WBC (Bld) [Ratio] 0 % 0-5 [facility] Work Phone: MCHC Auto (RBC) [Mass/Vol]on 11-16-2021 MCHC (RBC) [Mass/Vol] 32.2 g/dL 32-36 [facility] Work Phone: No Panel Informationon 11-16 Troponin I High Sensitivity 7 pg/mL 3.0-78.0 [facility] Work Phone: Comment on above: Please Note: New [place] t Units and Gender Specific Reference Ranges. For more information see Policy Stat Procedure [place] High Sensitivity Troponin (TNIH) and attachments. Estimated Creatinine Clearance Calc 45.54 ml/min [facility] Work Phone: Estimated GFR (MDRD) Amer 64 mL/min >60 [facility] Work Phone: Comment on above: GFR Calc Estimated GFR (MDRD) Non-Af Amer 53 mL/min >60 [facility] Work Phone: Comment on above: Non- GFR Calc Platelets bldon 11-16-2021 Platelets (Bld) [#/Vol] 142 10*3/uL 150-450 [facility] Work Phone: Serum or plasma calcium francine urement (mass/volume)on 11-16-2021 Calcium [Mass/Vol] 9.2 mg/dL 8.5-10.1 [facility] Work Phone: Serum or plasma creatinine m easurement (mass/volume)on 11-16-2021 Creatinine [Mass/Vol] 1.38 mg/dL 0.70-1.30 [facility] Work Phone: Comment on above: The validity of the calculated GFR & GFRAA in patients over 70 years has not been determined. Clinical correlation is essential. Serum or plasma urea nitroge n measurement (mass/volume)on 11-16-2021 Urea nitrogen [Mass/Vol] 16 mg/dL 7-18 [facility] Work Phone: Thin prep Papanicolaou smear with manual screeningon 11-16-2021 Thin prep Papanicolaou smear with manual screening 6 5-15 [facility] Work Phone: Basophil percentageon 2021 Chloride [Moles/Vol] 105 mmol/L 98-107 [facility] Work Phone: Glucose [Mass/Vol] 246 mg/dL 74-106 [facility] Work Phone: Comment on above: Glucose result great er than or equal to 200 mg/dLsuggests DIABETES MELLITUS per A.D.A. criteria. Potassium [Moles/Vol] 4.2 mmol/L 3.5-5.1 [facility] Work Phone: Sodium [Moles/Vol] 137 mmol/L 136-145 [facility] Work Phone: Laboratory - Chemistry and C hemistry - challengeon 10-28-2021 CO2 [Moles/Vol] 24.0 mmol/L 21.0-32.0 [facility] Work Phone: Urea nitrogen/Creatinine [Mass ratio] 15.6 mg/mg 10-20 [facility] Work Phone: No Panel Informationon 10-28 Estimated GFR (MDRD) Amer 74 mL/min >60 [facility] Work Phone: Comment on above: GFR Calc Estimated GFR (MDRD) Non-Af Amer 61 mL/min >60 [facility] Work Phone: Comment on above: Non- GFR Calc Serum or plasma calcium francine urement (mass/volume)on 10-28-2021 Calcium [Mass/Vol] 8.9 mg/dL 8.5-10.1 [facility] Work Phone: Serum or plasma creatinine m easurement (mass/volume)on 10-28-2021 Creatinine [Mass/Vol] 1.22 mg/dL 0.70-1.30 [facility] Work Phone: Comment on above: The validity of the calculated GFR & GFRAA in patients over 70 years has not been determined. Clinical correlation is essential. Serum or plasma urea nitroge n measurement (mass/volume)on 10-28-2021 Urea nitrogen [Mass/Vol] 19 mg/dL 7-18 [facility] Work Phone: Thin prep Papanicolaou smear with manual screeningon 10-28-2021 Thin prep Papanicolaou smear with manual screening 8 5-15 [facility] Work Phone: Whole blood hemoglobin A1c/t otal hemoglobin ratio (mass fraction)on 10-28-2021 HbA1c (Bld) [Mass fraction] 7.7 % 3.8-5.6 [facility] Work Phone: Comment on above: Normal < 5.7 % Predi abetic 5.7 - 6.4 % Diabetic >or= 6.5 % Please note range changes. Absolute lymphocyte counton 09-16-2021 Lymphocytes Auto (Unsp spec) [#/Vol] 1.24 10*3/uL 0.83-4.51 [facility] Work Phone: Basophil percentageon 2021 Basophils/100 WBC (Bld) 0.5 % 0-1 [facility] Work Phone: Chloride [Moles/Vol] 107 mmol/L 98-107 [facility] Work Phone: Eosinophils/100 WBC (Bld) 1.7 % 0-5 [facility] Work Phone: [phone] Glucose [Mass/Vol] 134 mg/dL 74-106 [facility] Work Phone: Comment on above: Fasting Glucose resu lt greater than or equal to 126 mg/dL suggests DIABETES MELLITUS per A.D.A. criteria. Neutrophils (Bld) [#/Vol] 4.4 10*3/uL 2.0-7.7 [facility] Work Phone: Neutrophils/100 WBC (Bld) 68.0 % 47-70 [facility] Work Phone: Potassium [Moles/Vol] 4.3 mmol/L 3.5-5.1 [facility] Work Phone: Sodium [Moles/Vol] 139 mmol/L 136-145 [facility] Work Phone: WBC (Bld) [#/Vol] 6.4 10*3/uL 4.4-11.0 [facility] Work Phone: [phone] Blood erythrocytes count (nu mber/volume)on 09-16-2021 RBC (Bld) [#/Vol] 4.84 10*6/uL 4.6-6.2 [facility] Work Phone: Blood hemoglobin measurement (mass/volume)on 09-16-2021 Hemoglobin (Bld) [Mass/Vol] 14.1 g/dL 13.0-16.5 [facility] Work Phone: Blood lymphocytes/100 leukoc yteson 09-16-2021 Lymphocytes/100 WBC (Bld) 19.3 % 19-41 [facility] Work Phone: Blood monocytes/100 leukocyt eson 09-16-2021 Monocytes/100 WBC (Bld) 10.0 % 0-10 [facility] Work Phone: Blood platelet mean volumeon 09-16-2021 Platelet mean volume (Bld) [Entitic vol] 12.7 fL 6.2-12.0 [facility] Work Phone: Determination of erythrocyte mean corpuscular volume (MCV)on 09-16-2021 MCV (RBC) [Entitic vol] 90.1 fL 80-94 [facility] Work Phone: Hematocrit Auto (Bld) [Volum e fraction]on 09-16-2021 Hematocrit (Bld) [Volume fraction] 43.6 % 40-54 [facility] Work Phone: Laboratory - Chemistry and C hemistry - challengeon 09-16-2021 CO2 [Moles/Vol] 27.0 mmol/L 21.0-32.0 [facility] Work Phone: Natriuretic peptide B (Bld) [Mass/Vol] 80.9 pg/mL 0-100 [facility] Work Phone: Urea nitrogen/Creatinine [Mass ratio] 13.7 mg/mg 10-20 [facility] Work Phone: Laboratory - Hematology and Cell countson 09-16-2021 Erythrocyte distribution width (RBC) [Entitic vol] 46.2 fL 35.1-43.9 [facility] Work Phone: Erythrocyte distribution width (RBC) [Ratio] 13.9 % 11.6-14.6 [facility] Work Phone: Immature granulocytes/100 WBC (Bld) 0.500 % 0.0-0.9 [facility] Work Phone: Comment on above: IG% - Immature Granu locytes (promyelocytes, myelocytes and metamyelocytes) > 1% indicates that a LEFT SHIFT is Present. MCH (RBC) [Entitic mass] 29.1 pg 27.0-32.0 [facility] Work Phone: Nucleated RBC/100 WBC (Bld) [Ratio] 0 % 0-5 [facility] Work Phone: MCHC Auto (RBC) [Mass/Vol]on 09-16-2021 MCHC (RBC) [Mass/Vol] 32.3 g/dL 32-36 [facility] Work Phone: No Panel Informationon 09-16 Estimated GFR (MDRD) Amer 73 mL/min >60 [facility] Work Phone: Comment on above: GFR Calc Estimated GFR (MDRD) Non-Af Amer 60 mL/min >60 [facility] Work Phone: Comment on above: Non- GFR Calc Platelets bldon 09-16-2021 Platelets (Bld) [#/Vol] 133 10*3/uL 150-450 [facility] Work Phone: Serum or plasma calcium francine urement (mass/volume)on 09-16-2021 Calcium [Mass/Vol] 9.0 mg/dL 8.5-10.1 [facility] Work Phone: Serum or plasma creatinine m easurement (mass/volume)on 09-16-2021 Creatinine [Mass/Vol] 1.24 mg/dL 0.70-1.30 [facility] Work Phone: Comment on above: The validity of the calculated GFR & GFRAA in patients over 70 years has not been determined. Clinical correlation is essential. Serum or plasma urea nitroge n measurement (mass/volume)on 09-16-2021 Urea nitrogen [Mass/Vol] 17 mg/dL 7-18 [facility] Work Phone: Thin prep Papanicolaou smear with manual screeningon 09-16-2021 Thin prep Papanicolaou smear with manual screening 5 5-15 [facility] Work Phone: Absolute lymphocyte counton 06-10-2021 Lymphocytes Auto (Unsp spec) [#/Vol] 1.00 10*3/uL 0.83-4.51 [facility] Work Phone: Basophil percentageon 2021 Basophils/100 WBC (Bld) 0.3 % 0-1 [facility] Work Phone: Chloride [Moles/Vol] 107 mmol/L 98-107 [facility] Work Phone: Eosinophils/100 WBC (Bld) 1.7 % 0-5 [facility] Work Phone: Glucose [Mass/Vol] 150 mg/dL 74-106 [facility] Work Phone: Comment on above: Fasting Glucose resu lt greater than or equal to 126 mg/dL suggests DIABETES MELLITUS per A.D.A. criteria. Neutrophils (Bld) [#/Vol] 4.9 10*3/uL 2.0-7.7 [facility] Work Phone: Neutrophils/100 WBC (Bld) 73.8 % 47-70 [facility] Work Phone: Potassium [Moles/Vol] 5.6 mmol/L 3.5-5.1 [facility] Work Phone: Comment on above: Moderate Hemolysis, Result may be falsely increased. Sodium [Moles/Vol] 139 mmol/L 136-145 [facility] Work Phone: [phone] WBC (Bld) [#/Vol] 6.7 10*3/uL 4.4-11.0 [facility] Work Phone: Blood erythrocytes count (nu mber/volume)on 06-10-2021 RBC (Bld) [#/Vol] 5.17 10*6/uL 4.6-6.2 [facility] Work Phone: [phone] Blood hemoglobin measurement (mass/volume)on 06-10-2021 Hemoglobin (Bld) [Mass/Vol] 15.5 g/dL 13.0-16.5 [facility] Work Phone: Blood lymphocytes/100 leukoc yteson 06-10-2021 Lymphocytes/100 WBC (Bld) 15.0 % 19-41 [facility] Work Phone: Blood monocytes/100 leukocyt eson 06-10-2021 Monocytes/100 WBC (Bld) 8.7 % 0-10 [facility] Work Phone: Blood platelet mean volumeon 06-10-2021 Platelet mean volume (Bld) [Entitic vol] 12.7 fL 6.2-12.0 [facility] Work Phone: Determination of erythrocyte mean corpuscular volume (MCV)on 06-10-2021 MCV (RBC) [Entitic vol] 89.6 fL 80-94 [facility] Work Phone: Hematocrit Auto (Bld) [Volum e fraction]on 06-10-2021 Hematocrit (Bld) [Volume fraction] 46.3 % 40-54 [facility] Work Phone: Laboratory - Chemistry and C hemistry - challengeon 06-10-2021 CO2 [Moles/Vol] 28.0 mmol/L 21.0-32.0 [facility] Work Phone: Urea nitrogen/Creatinine [Mass ratio] 12.7 mg/mg 10-20 [facility] Work Phone: Laboratory - Hematology and Cell countson 06-10-2021 Erythrocyte distribution width (RBC) [Entitic vol] 45.9 fL 35.1-43.9 [facility] Work Phone: Erythrocyte distribution width (RBC) [Ratio] 14.1 % 11.6-14.6 [facility] Work Phone: Immature granulocytes/100 WBC (Bld) 0.500 % 0.0-0.9 [facility] Work Phone: Comment on above: IG% - Immature Granu locytes (promyelocytes, myelocytes and metamyelocytes) > 1% indicates that a LEFT SHIFT is Present. MCH (RBC) [Entitic mass] 30.0 pg 27.0-32.0 [facility] Work Phone: Nucleated RBC/100 WBC (Bld) [Ratio] 0 % 0-5 [facility] Work Phone: MCHC Auto (RBC) [Mass/Vol]on 06-10-2021 MCHC (RBC) [Mass/Vol] 33.5 g/dL 32-36 [facility] Work Phone: No Panel Informationon 06-10 Troponin I High Sensitivity 10 pg/mL 3.0-78.0 [facility] Work Phone: Comment on above: Please Note: New Jana t Units and Gender Specific Reference Ranges. For more information see Policy Stat Procedure [place] High Sensitivity Troponin (TNIH) and attachments. Estimated Creatinine Clearance Calc 47.63 ml/min [facility] Work Phone: Estimated GFR (MDRD) Amer 67 mL/min >60 [facility] Work Phone: Comment on above: GFR Calc Estimated GFR (MDRD) Non-Af Amer 55 mL/min >60 [facility] Work Phone: Comment on above: Non- GFR Calc Platelets bldon 06-10-2021 Platelets (Bld) [#/Vol] 146 10*3/uL 150-450 [facility] Work Phone: Serum or plasma calcium francine urement (mass/volume)on 06-10-2021 Calcium [Mass/Vol] 8.7 mg/dL 8.5-10.1 [facility] Work Phone: Serum or plasma creatinine m easurement (mass/volume)on 06-10-2021 Creatinine [Mass/Vol] 1.34 mg/dL 0.70-1.30 [facility] Work Phone: Comment on above: The validity of the calculated GFR & GFRAA in patients over 70 years has not been determined. Clinical correlation is essential. Serum or plasma urea nitroge n measurement (mass/volume)on 06-10-2021 Urea nitrogen [Mass/Vol] 17 mg/dL 7-18 [facility] Work Phone: Thin prep Papanicolaou smear with manual screeningon 06-10-2021 Thin prep Papanicolaou smear with manual screening 4 5-15 [facility] Work Phone: Absolute lymphocyte counton 05-19-2021 Lymphocytes Auto (Unsp spec) [#/Vol] 1.72 10*3/uL 0.83-4.51 [facility] Work Phone: Basophil percentageon 2021 Basophils/100 WBC (Bld) 0.4 % 0-1 [facility] Work Phone: Bilirubin [Mass/Vol] 1.20 mg/dL 0.20-1.00 [facility] Work Phone: Comment on above: For patients on eltr ombopag therapy, use of Dimension [place] TBIL is not recommended. Chloride [Moles/Vol] 106 mmol/L 98-107 [facility] Work Phone: Eosinophils/100 WBC (Bld) 1.2 % 0-5 [facility] Work Phone: Glucose [Mass/Vol] 182 mg/dL 74-106 [facility] Work Phone: Comment on above: Fasting Glucose resu lt greater than or equal to 126 mg/dL suggests DIABETES MELLITUS per A.D.A. criteria. Neutrophils (Bld) [#/Vol] 6.6 10*3/uL 2.0-7.7 [facility] Work Phone: Neutrophils/100 WBC (Bld) 70.5 % 47-70 [facility] Work Phone: Potassium [Moles/Vol] 3.8 mmol/L 3.5-5.1 [facility] Work Phone: Protein [Mass/Vol] 7.9 g/dL 6.4-8.2 [facility] Work Phone: Sodium [Moles/Vol] 139 mmol/L 136-145 [facility] Work Phone: WBC (Bld) [#/Vol] 9.4 10*3/uL 4.4-11.0 [facility] Work Phone: Basophil percentage 0 SEEN /hpf [facility] Work Phone: Bilirubin Test strip Ql (U)o n 05-19-2021 Bilirubin Ql (U) Negative Negative [facility] Work Phone: Blood erythrocytes count (nu mber/volume)on 05-19-2021 RBC (Bld) [#/Vol] 5.30 10*6/uL 4.6-6.2 [facility] Work Phone: Blood hemoglobin measurement (mass/volume)on 05-19-2021 Hemoglobin (Bld) [Mass/Vol] 15.3 g/dL 13.0-16.5 [facility] Work Phone: Blood lymphocytes/100 leukoc yteson 05-19-2021 Lymphocytes/100 WBC (Bld) 18.3 % 19-41 [facility] Work Phone: Blood monocytes/100 leukocyt eson 05-19-2021 Monocytes/100 WBC (Bld) 9.3 % 0-10 [facility] Work Phone: Blood platelet mean volumeon 05-19-2021 Platelet mean volume (Bld) [Entitic vol] 12.5 fL 6.2-12.0 [facility] Work Phone: Determination of erythrocyte mean corpuscular volume (MCV)on 05-19-2021 MCV (RBC) [Entitic vol] 89.8 fL 80-94 [facility] Work Phone: [phone] Hematocrit Auto (Bld) [Volum e fraction]on 05-19-2021 Hematocrit (Bld) [Volume fraction] 47.6 % 40-54 [facility] Work Phone: Ketones Test strip Ql (U)on 05-19-2021 Ketones Ql (U) Negative Negative [facility] Work Phone: Laboratory - Chemistry and C hemistry - challengeon 05-19-2021 ALP [Catalytic activity/Vol] 156 U/L 45-117 [facility] Work Phone: ALT [Catalytic activity/Vol] 44 U/L 16-61 [facility] Work Phone: CO2 [Moles/Vol] 26.0 mmol/L 21.0-32.0 [facility] Work Phone: Globulin (S) [Mass/Vol] 4.2 g/dL 2.2-4.2 [facility] Work Phone: Lipase [Catalytic activity/Vol] 199 U/L 73-393 [facility] Work Phone: Urea nitrogen/Creatinine [Mass ratio] 13.8 mg/mg 10-20 [facility] Work Phone: Laboratory - Hematology and Cell countson 05-19-2021 Erythrocyte distribution width (RBC) [Entitic vol] 46.7 fL 35.1-43.9 [facility] Work Phone: Erythrocyte distribution width (RBC) [Ratio] 14.3 % 11.6-14.6 [facility] Work Phone: Immature granulocytes/100 WBC (Bld) 0.300 % 0.0-0.9 [facility] Work Phone: Comment on above: IG% - Immature Granu locytes (promyelocytes, myelocytes and metamyelocytes) > 1% indicates that a LEFT SHIFT is Present. MCH (RBC) [Entitic mass] 28.9 pg 27.0-32.0 [facility] Work Phone: Nucleated RBC/100 WBC (Bld) [Ratio] 0 % 0-5 [facility] Work Phone: MCHC Auto (RBC) [Mass/Vol]on 05-19-2021 MCHC (RBC) [Mass/Vol] 32.1 g/dL 32-36 [facility] Work Phone: Mucus LM Ql (Urine sed)on Mucus Ql (Urine sed) 0 SEEN /hpf [facility] Work Phone: Nitrite Test strip Ql (U)on 05-19-2021 Nitrite Ql (U) Negative Negative [facility] Work Phone: No Panel Informationon 05-19 Estimated Creatinine Clearance Calc 46.25 ml/min [facility] Work Phone: Estimated GFR (MDRD) Amer 65 mL/min >60 [facility] Work Phone: Comment on above: GFR Calc Estimated GFR (MDRD) Non-Af Amer 53 mL/min >60 [facility] Work Phone: Comment on above: Non- GFR Calc Platelets bldon 05-19-2021 Platelets (Bld) [#/Vol] 158 10*3/uL 150-450 [facility] Work Phone: Protein Test strip Ql (U)on 05-19-2021 Protein Ql (U) Negative Negative [facility] Work Phone: Serum or plasma albumin francine urement (mass/volume)on 05-19-2021 Albumin [Mass/Vol] 3.7 g/dL 3.2-5.0 [facility] Work Phone: Serum or plasma albumin/glob ulin mass ratioon 05-19-2021 Albumin/Globulin [Mass ratio] 0.9 {ratio} 0.9-2.4 [facility] Work Phone: Serum or plasma calcium francine urement (mass/volume)on 05-19-2021 Calcium [Mass/Vol] 9.2 mg/dL 8.5-10.1 [facility] Work Phone: Serum or plasma creatinine m easurement (mass/volume)on 05-19-2021 Creatinine [Mass/Vol] 1.38 mg/dL 0.70-1.30 [facility] Work Phone: Comment on above: The validity of the calculated GFR & GFRAA in patients over 70 years has not been determined. Clinical correlation is essential. Serum or plasma urea nitroge n measurement (mass/volume)on 05-19-2021 Urea nitrogen [Mass/Vol] 19 mg/dL 7-18 [facility] Work Phone: Squamous epithelial cells de tection in urine sediment by light microscopyon 05-19-2021 Epithelial cells.squamous LM Ql (Urine sed) 0 SEEN /hpf [facility] Work Phone: Thin prep Papanicolaou smear with manual screeningon 05-19-2021 Thin prep Papanicolaou smear with manual screening 25 U/L 15-37 [facility] Work Phone: Thin prep Papanicolaou smear with manual screening 7 5-15 [facility] Work Phone: Urine blood detectionon 05-03 RBC Ql (U) Negative Negative [facility] Work Phone: RBC Ql (U) 0 SEEN /hpf [facility] Work Phone: Urine clarityon 05-19-2021 Clarity (U) Clear Clear [facility] Work Phone: Urine color determinationon 05-19-2021 Color (U) Straw Yellow [facility] Work Phone: Urine glucose detectionon Glucose Ql (U) Normal mg/dl Normal [facility] Work Phone: Urine leukocyte esterase det ection by dipstickon 05-19-2021 Leukocyte esterase Test strip Ql (U) Negative Negative [facility] Work Phone: Urine pHon 05-19-2021 pH (U) 5.0 [pH] [facility] Work Phone: Urine sediment bacteria coun t by microscopy (number/high power field)on 05-19-2021 Bacteria LM.HPF (Urine sed) [#/Area] 0 /[HPF] None Seen [facility] Work Phone: Urine specific gravity measu rementon 05-19-2021 Specific gravity (U) [Rel density] 1.010 [facility] Work Phone: Urobilinogen Auto test strip Ql (U)on 05-19-2021 Urobilinogen Ql (U) Normal mg/dl Normal [facility] Work Phone: CT ANGIOGRAM AORTA CHEST ABD [...] descending thoracic aorta is tortuous within its ynx-ig-nsalgr course but is not aneurysmal. The abdominal [...] at L4-L5 and L5-S1. IMAGING FACILITY: [facility]. 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 Physician: PROCEDURE(S) [...] right femoral artery - 6F. 10 cm [place] Catheters were advanced using standard guide wire [...] Equipment: Sheath(s) [employer] 4F MICROPUNCTURE KIT [employer] 6F 10CM [place] SHEATH Wire(s) [employer] J WIRE FIXED MERIT .035 X 150CM GUIDEWIRE Catheter(s) [employer] JR4 DIAG CATH 6F [employer] JR4 DIAG CATH 6F [employer] PIGTAIL STRAIGHT DIAG CATH 6F See Nursing Notes for further details Signed By Eladio Ingram MD On 01/10/2021 11:05:05 Eladio Ingram MD _ _ [facility] ECHOCARDIOGRAM 2D COMPLETEOr dered By: Eladio Ingram on 10-15-2020 Aortic valve area 2.78414 cm [facility] AV mean gradient 6 mmHg [facility] EF 62.7797 % [facility] Patient Info Name: Morro RICO Age: 75 years : 1945 Gender: Male Ht: 175 cm Wt: 106 kg BSA: 2.31 m2 HR: 50 bpm BP: 134 / 72 mmHg Heart Rhythm: Bradycardia, Sinus Rhythm Technical Quality: Fair, Technically difficult Exam Date: 10/15/2020 12:57 PM Patient Status: Outpatient Radiological Metallurgist: Tracy Bonilla, DRU, RVT Exam Type: ECHOCARDIOGRAM COMPLETE W CONTRAST Study Info Indications - Dyspnea Attending Physician: ELADIO INGRAM Referring Physician: ELADIO INGRAM ; [id number] BMI: 34.56 kg/m2 Summary 1. Left ventricular [...] Velocity 1.09 m/s (more content not included)... [facility] Interface, Rad In He artlab [employer] Ech[employer]acs - 10/15/2020 4:30 PM EDT Patient Info Name: ERIBERTO RICO Age: 75 years : 1945 Gender: Male Ht: 175 cm Wt: 106 kg BSA: 2.31 m2 HR: 50 bpm BP: 134 / 72 mmHg Heart Rhythm: Bradycardia, Sinus Rhythm Technical Quality: Fair, Technically difficult Exam Date: 10/15/2020 12:57 PM Patient Status: Outpatient Radiological Metallurgist: Tracy Bonilla, DRU, RVT Exam Type: ECHOCARDIOGRAM COMPLETE W CONTRAST Study Info Indications - Dyspnea Attending Physician: ELADIO INGRAM Referring Physician: ELADIO INGRAM ; [id number] BMI: 34.56 kg/m2 Summary 1. Left ventricular [...] mmHg MV VTI 46 cm MV [employer] [place] 333 cm/s2 MV PHT 38 ms MV Area (PHT) 5.8 cm2 4.0-5.0 MV Area (Cont Eq VTI) 2.5 cm2 MV Area Index (Cont Eq VTI) 1.06 cm2/m2 MV Di (more content not included)... [facility] ECHOCARDIOGRAM COMPLETE W CO NTRASTon 10-15-2020 ECHOCARDIOGRAM COMPLETE W CONTRAST Patient Info Name: ERIBERTO RICO Age: 75 years : 1945 Gender: Male Ht: 175 cm Wt: 106 kg BSA: 2.31 m2 HR: 50 bpm BP: 134 / 72 mmHg Heart Rhythm: Bradycardia, Sinus Rhythm Technical Quality: Fair, Technically difficult Exam Date: 10/15/2020 12:57 PM Patient Status: Outpatient Radiological Metallurgist: Tracy Bonilla RDCS, RVT Exam Type: ECHOCARDIOGRAM COMPLETE W CONTRAST Study Info Indications - Dyspnea Attending Physician: ELADIO INGRAM Referring Physician: ELADIO INGRAM ; [id number] BMI: 34.56 kg/m2 Summary 1. Left ventricular [...] mmHg MV VTI 46 cm MV [employer] [place] 333 cm/s2 MV PHT 38 ms MV Area (PHT) 5.8 cm2 4.0-5.0 MV Area (Cont Eq VTI) 2.5 cm2 MV Area Index (Cont Eq VTI) 1.06 cm2/m2 MV Diastolic Function MV E Peak Velocity 1 m/s MV A Peak Velocity 1 m/s MV E/A 1.2 MV (more content not included)... Normal [facility] Ambulatory ECG 12-LEADOrdered By: Fernanda Acuña on 10-09-2020 Atrial Rate [facility] P [place] [facility] P-R Interval [facility] Q-T Interval [facility] Q-T Interval (corrected) [facility] QRS Duration [facility] QTC Calculation (Bezet) [facility] R [place] [facility] T [place] [facility] 09-15-2018 Basophils #/vol (Bld) 0.0 E3/mcL Normal 0.0-0.2 [facility] Comment on above: Order Comment: Order Added by Discern Expert. Performed By: #### 2 [id number] #### [facility] [employer] [address] [place] [address] 39635 Basophils/100 WBC (Bld) 0.6 % Normal 0.0-2.0 [facility] Comment on above: Order Comment: Order Added by Discern Expert. Performed By: #### 2 [id number] #### [employer] [address] [place] [address] 56987 Eos Absolute 0.1 E3/mcL Normal 0.0-0.7 [facility] Comment on above: Order Comment: Order Added by Discern Expert. Performed By: #### 2 [id number] #### [employer] [address] [place] [address] 00501 Eosinophils/100 WBC (Bld) 2.2 % Normal 0.0-11.0 [facility] Comment on above: Order Comment: Order Added by Discern Expert. Performed By: #### 2 [id number] #### [employer] [address] [place] [address] 03356 Lymphocytes #/vol (Bld) 1.9 E3/mcL Normal 1.2-3.4 [facility] Comment on above: Order Comment: Order Added by Discern Expert. Performed By: #### 2 [id number] #### [employer] [address] [place] [address] 21232 Lymphocytes/100 WBC (Bld) 31.0 % Normal 20.0-55.0 [facility] Comment on above: Order Comment: Order Added by Discern Expert. Performed By: #### 2 [id number] #### [employer] [address] [place] [address] 61097 Lamb Absolute 0.8 E3/mcL High 0.0-0.7 [facility] Comment on above: Order Comment: Order Added by Discern Expert. Performed By: #### 2 [id number] #### [employer] [address] [place] [address] 25846 Monocytes/100 WBC (Bld) 13.2 % High 0.0-10.0 [facility] Comment on above: Order Comment: Order Added by Discern Expert. Performed By: #### 2 [id number] #### [employer] [address] [place] [address] 14991 Neutro Absolute 3.3 E3/mcL Normal 1.4-6.5 [facility] Comment on above: Order Comment: Order Added by Discern Expert. Performed By: #### 2 [id number] #### [employer] [address] [place] [address] Neutro Auto 53.0 % Normal 37.0-75.0 [facility] Comment on above: Order Comment: Order Added by Discern Expert. Performed By: #### 2 [id number] #### [employer] [address] [place] [address] BMPon 09-15-2018 Anion gap molar conc 10 mmol/L Normal 10-20 [facility] Comment on above: Performed By: #### 2 [id number] #### [employer] [address] [id number] Calcium mass conc 8.4 mg/dL Low 8.6-10.3 [facility] Comment on above: Performed By: #### 2 [id number] #### [employer] [address] [place] [address] Chloride molar conc 105 mmol/L Normal 98-107 [facility] Comment on above: Performed By: #### 2 [id number] #### [employer] [address] [place] [address] CO2 molar conc 26.0 mmol/L Normal 21.0-32.0 [facility] Comment on above: Performed By: #### 2 [id number] #### [employer] [address] [place] [address] Creatinine mass conc 1.1 mg/dL Normal 0.5-1.3 [facility] Comment on above: Performed By: #### 2 [id number] #### [employer] [address] [place] [address] Glucose mass conc 136 mg/dL High 70-99 [facility] Comment on above: Performed By: #### 2 [id number] #### [employer] [address] [place] [address] Potassium molar conc 4.1 mmol/L Normal 3.5-5.3 [facility] Comment on above: Performed By: #### 2 [id number] #### [employer] [address] [place] [address] Sodium molar conc 137 mmol/L Normal 136-145 [facility] Comment on above: Performed By: #### 2 [id number] #### [employer] [address] [place] [address] Urea nitrogen mass conc 19 mg/dL Normal 6-23 [facility] Comment on above: Performed By: #### 2 [id number] #### [employer] [address] [place], [place] [id number] Urea nitrogen/Creatinine mass ratio 17.3 ratio Normal 5.4-30.0 [facility] Comment on above: Performed By: #### 2 [id number] #### [employer] [address] [place] [address] 04436 CBC w/ Auto Diffon 9 Erythrocyte distribution width Ratio (RBC) 14.9 % High 11.5-14.5 [facility] Comment on above: Performed By: #### 2 [id number] #### [employer] [address] [place] [address] Hematocrit Volume Fraction (Bld) 41.5 % Low 42.0-52.0 [facility] Comment on above: Performed By: #### 2 [id number] #### [facility] [employer] [address] [place], [place] [id number] Hemoglobin mass conc (Bld) 13.6 g/dL Normal 13.5-18.0 [facility] Comment on above: Performed By: #### 2 [id number] #### [employer] [address] [place] [address] 17826 MCH Entitic mass (RBC) 29.6 pg Normal 27.0-31.0 [facility] Comment on above: Performed By: #### 2 [id number] #### [employer] [address] [place] [address] 33378 MCHC mass conc (RBC) 32.8 g/dL Low 33.0-37.0 [facility] Comment on above: Performed By: #### 2 [id number] #### [employer] [address] [place] [address] 90922 MCV Entitic volume (RBC) 90.4 fL Normal 78.0-100.0 [facility] Comment on above: Performed By: #### 2 [id number] #### [employer] [address] [place] [address] Platelet mean volume Entitic volume (Bld) 10.8 fL Normal 7.4-11.0 [facility] Comment on above: Performed By: #### 2 [id number] #### [employer] [address] [place] [address] Platelets #/vol (Bld) 137 E3/mcL Normal 130-400 [facility] Comment on above: Performed By: #### 2 [id number] #### [employer] [address] [place] [address] RBC #/vol (Bld) 4.59 E6/mcL Normal 3.90-6.10 [facility] Comment on above: Performed By: #### 2 [id number] #### [employer] [address] [place] [address] WBC #/vol (Bld) 6.2 E3/mcL Normal 3.6-11.0 [facility] Comment on above: Performed By: #### 2 [id number] #### [employer] [address] [place] [address] Glucose POCon 09-15-2018 Glucose mass conc 163 mg/dL High 70-99 [facility] Comment on above: Performed By: #### 2 [id number] #### [employer] [address] [place] [address] Glucose mass conc 99 mg/dL Normal 70-99 [facility] Comment on above: Performed By: #### 2 [id number] #### [employer] [address] [place] [address] Troponin-Ion 09-15-2018 Troponin I.cardiac mass conc 0.01 ng/mL Normal 0.00-0.03 [facility] Comment on above: Performed By: #### 2 [id number] #### [employer] [address] [place], [place] [id number] eGFRon 09-15-2018 GFR/1.73 sq M predicted among non-blacks MDRD vol rate/area (S/P/Bld) mL/min/{1.73_m2} Normal [facility] Comment on above: Order Comment: Order added by Discern Expert. Performed By: #### 2 [id number] #### [employer] [address] [place] [address] Auto Diffon 09-14-2018 Basophils #/vol (Bld) 0.0 E3/mcL Normal 0.0-0.2 [facility] Comment on above: Order Comment: Order Added by Discern Expert. Performed By: #### 2 [id number] #### [employer] [address] [place] [address] 99460 Basophils/100 WBC (Bld) 0.6 % Normal 0.0-2.0 [facility] Comment on above: Order Comment: Order Added by Discern Expert. Performed By: #### 2 [id number] #### [employer] [address] [place] [address] 51730 Eos Absolute 0.1 E3/mcL Normal 0.0-0.7 [facility] Comment on above: Order Comment: Order Added by Discern Expert. Performed By: #### 2 [id number] #### [employer] [address] [place] [address] 62809 Eosinophils/100 WBC (Bld) 1.7 % Normal 0.0-11.0 [facility] Comment on above: Order Comment: Order Added by Discern Expert. Performed By: #### 2 [id number] #### [employer] [address] [place] [address] 23015 Lymphocytes #/vol (Bld) 1.2 E3/mcL Normal 1.2-3.4 [facility] Comment on above: Order Comment: Order Added by Discern Expert. Performed By: #### 2 [id number] #### [employer] [address] [place] [address] Lymphocytes/100 WBC (Bld) 16.5 % Low 20.0-55.0 [facility] Comment on above: Order Comment: Order Added by Discern Expert. Performed By: #### 2 [id number] #### [employer] [address] [place] [address] Lamb Absolute 0.8 E3/mcL High 0.0-0.7 [facility] Comment on above: Order Comment: Order Added by Discern Expert. Performed By: #### 2 [id number] #### [employer] [address] [place] [address] Monocytes/100 WBC (Bld) 11.1 % High 0.0-10.0 [facility] Comment on above: Order Comment: Order Added by Discern Expert. Performed By: #### 2 [id number] #### [employer] [address] [place] [address] Neutro Absolute 5.1 E3/mcL Normal 1.4-6.5 [facility] Comment on above: Order Comment: Order Added by Discern Expert. Performed By: #### 2 [id number] #### [employer] [address] [place] [address] Neutro Auto 70.1 % Normal 37.0-75.0 [facility] Comment on above: Order Comment: Order Added by Discern Expert. Performed By: #### 2 [id number] #### [employer] [address] [place] [address] BMPon 09-14-2018 Anion gap molar conc 13 mmol/L Normal 10-20 [facility] Comment on above: Performed By: #### 2 [id number] #### [employer] [address] [place] [address] Calcium mass conc 9.2 mg/dL Normal 8.6-10.3 [facility] Comment on above: Performed By: #### 2 [id number] #### [employer] [address] [place] [address] Chloride molar conc 105 mmol/L Normal 98-107 [facility] Comment on above: Performed By: #### 2 [id number] #### [employer] [address] [place] [address] CO2 molar conc 24.0 mmol/L Normal 21.0-32.0 [facility] Comment on above: Performed By: #### 2 [id number] #### [employer] [address] [place] [address] Creatinine mass conc 1.2 mg/dL Normal 0.5-1.3 [facility] Comment on above: Performed By: #### 2 [id number] #### [employer] [address] [place] [address] Glucose mass conc 129 mg/dL High 70-99 [facility] Comment on above: Performed By: #### 2 [id number] #### [employer] [address] [place] [address] Potassium molar conc 3.9 mmol/L Normal 3.5-5.3 [facility] Comment on above: Performed By: #### 2 [id number] #### [employer] [address] [place] [address] Sodium molar conc 138 mmol/L Normal 136-145 [facility] Comment on above: Performed By: #### 2 [id number] #### [facility] [employer] [address] [place] [address] Urea nitrogen mass conc 19 mg/dL Normal 6-23 [facility] Comment on above: Performed By: #### 2 [id number] #### [employer] [address] [place] [address] Urea nitrogen/Creatinine mass ratio 15.8 ratio Normal 5.4-30.0 [facility] Comment on above: Performed By: #### 2 [id number] #### [employer] [address] [place] [address] CBC w/ Auto Diffon 9 Erythrocyte distribution width Ratio (RBC) 15.2 % High 11.5-14.5 [facility] Comment on above: Performed By: #### 2 [id number] #### [employer] [address] [place] [address] Hematocrit Volume Fraction (Bld) 45.0 % Normal 42.0-52.0 [facility] Comment on above: Performed By: #### 2 [id number] #### [employer] [address] [place] [address] Hemoglobin mass conc (Bld) 15.0 g/dL Normal 13.5-18.0 [facility] Comment on above: Performed By: #### 2 [id number] #### [employer] [address] [place] [address] MCH Entitic mass (RBC) 29.8 pg Normal 27.0-31.0 [facility] Comment on above: Performed By: #### 2 [id number] #### [employer] [address] [place] [address] MCHC mass conc (RBC) 33.4 g/dL Normal 33.0-37.0 [facility] Comment on above: Performed By: #### 2 [id number] #### [employer] [address] [place] [address] MCV Entitic volume (RBC) 89.4 fL Normal 78.0-100.0 [facility] Comment on above: Performed By: #### 2 [id number] #### [employer] [address] [place] [address] Platelet mean volume Entitic volume (Bld) 10.8 fL Normal 7.4-11.0 [facility] Comment on above: Performed By: #### 2 [id number] #### [employer] [facility] [place] [address] Platelets #/vol (Bld) 158 E3/mcL Normal 130-400 [facility] Comment on above: Performed By: #### 2 [id number] #### [employer] [address] [place] [address] RBC #/vol (Bld) 5.04 E6/mcL Normal 3.90-6.10 [facility] Comment on above: Performed By: #### 2 [id number] #### [employer] [address] [place] [address] WBC #/vol (Bld) 7.2 E3/mcL Normal 3.6-11.0 [facility] Comment on above: Performed By: #### 2 [id number] #### [employer] [facility] [place] [address] CT Head or Brain w/o Contras ton 09-14-2018 CT Head or Brain w/o Contrast Exam Date/Time: 09/14/2018 15:21 EDT Reason for Exam: Injury Report STUDY: CT Head or Brain w/o Contrast; 09/14/2018 3:21 pm INDICATION: Injury. COMPARISON: 11/28/2016 ACCESSION NUMBER(S): [id number] ORDERING CLINICIAN: Kirsty Nguyen TECHNIQUE: Volume acquisition [...] Signed by: Radha Olivarez MD Technologist: [facility]ZAIAH [facility] CT Spine Cervical w/o Contra ston 09-14-2018 CT Spine Cervical w/o Contrast Exam Date/Time: 09/14/2018 15:22 EDT Reason for Exam: Trauma Report STUDY: CT Spine Cervical w/o Contrast; 09/14/2018 3:22 pm INDICATION: Trauma. COMPARISON: None. ACCESSION NUMBER(S): [id number] ORDERING CLINICIAN: Kirsty Nguyen TECHNIQUE: Axial CT [...] pm Signed by: Radha Olivarez MD Technologist: [facility] Glucose POCon 09-14-2018 Glucose mass conc 132 mg/dL High 70-99 [facility] Comment on above: Performed By: #### 2 [id number] #### [employer] [address] [place] [address] [id number] 09-14-2018 Hemoglobin A1c/Hemoglobin.total mass fraction (Bld) 6.9 % High 4.0-6.3 [facility] Comment on above: Performed By: #### 2 [id number] #### [employer] [facility] [place] [address] Magnesiumon 09-14-2018 Magnesium mass conc 2.0 Int._Unit/L Normal 1.6-2.4 [facility] Comment on above: Performed By: #### 2 [id number] #### [employer] [address] [place], [place] [id number] PTon 09-14-2018 INR Coag RelTime (PPP) 1.0 {INR} Normal 0.9-1.1 [facility] Comment on above: Result Comment: INR Recommended Therapeutic ranges: Prophylaxis/treatment of DVT and PE..........2.0-3.0 Prevention of systemic embolism.................2.0-3.0 Mechanical prosthetic values........................2.5-3.5 CRITICAL VALUE.........................................> 4.0 NOTE: New methodology started 05/16/2018 Performed By: #### 2 [id number] #### [employer] [place] [address] Prothrombin time (PT) Coag time (PPP) 11.8 second(s) Normal 9.7-12.7 [facility] Comment on above: Result Comment: NOTE : New reference range established on 05/16/2018 due to change in methodology. Performed By: #### 2 [id number] #### [employer] [address] [place] [address] PTTon 09-14-2018 aPTT Coag time (Bld) 32 second(s) Normal 28-38 [facility] Comment on above: Result Comment: NOTE :New reference range established 05/16/2018 due to change in methodology. Performed By: #### 2 [id number] #### [employer] [address] [place] [address] TSHon 09-14-2018 Thyrotropin Qn 5.25 mcIU/mL Normal 0.30-5.60 [facility] Comment on above: Performed By: #### 2 [id number] #### [employer] [address] [place] [address] Troponin-Ion 09-14-2018 Troponin I.cardiac mass conc 0.02 ng/mL Normal 0.00-0.03 [facility] Comment on above: Performed By: #### 2 [id number] #### [employer] [address] [place] [address] UA Completeon 09-14-2018 Color Nom (U) Straw Normal Yellow [facility] Comment on above: Performed By: #### 2 [id number] #### [employer] [address] [place] [address] Glucose mass conc (U) Negative Normal Negative [facility] Comment on above: Performed By: #### 2 [id number] #### [employer] [address] [place] [address] Ketones Ql (U) Negative Normal Negative [facility] Comment on above: Performed By: #### 2 [id number] #### [employer] [address] [place] [address] UA Blood Negative Normal Negative [facility] Comment on above: Performed By: #### 2 [id number] #### [employer] [address] [place] [id number] UA Clarity Clear Normal Clear [facility] Comment on above: Performed By: #### 2 [id number] #### [employer] [address] [place] [id number] UA Hyal Cast 3-5 Abnormal 0-2 [facility] Comment on above: Performed By: #### 2 [id number] #### [employer] [address] [place] [address] UA Leuk Est Negative Normal Negative [facility] Comment on above: Performed By: #### 2 [id number] #### [employer] [address] [place] [address] UA Mucous Trace Abnormal Trace [facility] Comment on above: Performed By: #### 2 [id number] #### [employer] [address] [place] [id number] UA Nitrite Negative Normal Negative [facility] Comment on above: Performed By: #### 2 [id number] #### [employer] [address] [place] [id number] UA pH 5.0 Normal 4.6-8.0 [facility] Comment on above: Performed By: #### 2 [id number] #### [employer] [address] [place] [id number] UA Protein Negative Normal Negative [facility] Comment on above: Performed By: #### 2 857857 #### [employer] [address] [place] [id number] UA Spec Grav 1.009 Normal 1.003-1.03 0 [facility] Comment on above: Performed By: #### 2 [id number] #### [employer] [address] [place] [id number] UA Urobilinogen Negative Normal [facility] Comment on above: Result Comment: Due to a manufacturing issue, low positive urobilinogen results may be fasely positive. Correlate with urine bilirubin and additional clinical/laboratory findings to assess the risk of hemolytic anemia or liver disease. If clinically indicated, repeat testing with an alternate method is available by contacting the laboratory within 24 hours. Performed By: #### 2 [id number] #### [employer] [facility] [place] [id number] Urobilinogen Qn (U) Negative Normal Negative [facility] Comment on above: Performed By: #### 2 [id number] #### [employer] [address] [place] [address] XR Chest AP Portableon 09-14 XR Chest AP Portable Exam Date/Time: 09/14/2018 15:43 EDT Reason for Exam: Chest pain Report STUDY: XR Chest AP Portable; 09/14/2018 3:43 pm INDICATION: Chest pain. COMPARISON: 12/25/2016 ACCESSION NUMBER(S): [id number] ORDERING CLINICIAN: Kirsty Nguyen FINDINGS: CARDIOMEDIASTINAL SILHOUETTE: Cardiomediastinal silhouette is normal in size and configuration. LUNGS: Lungs are clear. ABDOMEN: No remarkable upper abdominal findings. BONES: No acute osseous changes. Status post fusion cervical spine Status post left shoulder rotator cuff repair IMPRESSION: No acute cardiopulmonary process. FINAL REPORT Dictated: 09/14/2018 4:17 pm Iav Vargas MD Signed (Electronic Signature): 09/14/2018 4:17 pm Signed by: Iva Vargas MD Technologist: [facility] XR Humerus Lefton 09-14-2018 XR Humerus Left Exam Date/Time: 09/14/2018 15:43 EDT Reason for Exam: Pain, Traumatic Report STUDY: XR Humerus Left; XR Shoulder Complete Left;; 09/14/2018 3:43 pm INDICATION: Pain, Traumatic. COMPARISON: None. ACCESSION NUMBER(S): [id number]; [id number] ORDERING CLINICIAN: Kirsty Nguyen FINDINGS: Five views [...] pm Signed by: Iva Vargas MD Technologist: [facility] XR Knee Complete Righton XR Knee Complete Right Exam Date/Time: 09/14/2018 15:43 EDT Reason for Exam: Pain, Traumatic Report STUDY: XR Knee Complete Right;; 09/14/2018 3:43 pm INDICATION: Pain, Traumatic. COMPARISON: None. ACCESSION NUMBER(S): [id number] ORDERING CLINICIAN: iKrsty Nguyen FINDINGS: Four views right knee: There is no fracture, dislocation or joint effusion. There is swelling anterior to the patella and infrapatellar tendon. IMPRESSION: No acute bony abnormality right knee, soft tissue swelling. FINAL REPORT Dictated: 09/14/2018 4:19 pm Iva Vargas MD Signed (Electronic Signature): 09/14/2018 4:19 pm Signed by: Iva Vargas MD Technologist: [facility] XR Shoulder Complete Lefton 09-14-2018 XR Shoulder Complete Left Exam Date/Time: 09/14/2018 15:43 EDT Reason for Exam: Pain, Traumatic Report STUDY: XR Humerus Left; XR Shoulder Complete Left;; 09/14/2018 3:43 pm INDICATION: Pain, Traumatic. COMPARISON: None. ACCESSION NUMBER(S): [id number]; [id number] ORDERING CLINICIAN: Kirsty Nguyen FINDINGS: Five views [...] pm Signed by: Iva Vargas MD Technologist: [facility] eGFRon 09-14-2018 GFR/1.73 sq M predicted among non-blacks MDRD vol rate/area (S/P/Bld) mL/min/{1.73_m2} Normal [facility] Comment on above: Order Comment: Order added by Discern Expert. Performed By: #### 1 [id number] #### [employer] [address] [place] [address] Vital Signs Date Time Vital Sign Value Performing Clinician Facility 12-17-2024 15:10-0400 Body temperature 97.9 [degF] Dr. Marycarmen Rodriguez DO Work Phone: [facility] 12-17-2024 15:10-0400 Diastolic blood pressure 82 mm[Hg] Dr. Marycarmen Rodriguez DO Work Phone: [facility] 12-17-2024 15:10-0400 Heart rate 78 /min Dr. Marycarmen Rodriguez DO Work Phone: [facility] 12-17-2024 15:10-0400 Respiratory rate 18 /min Dr. Marycarmen Rodriguez DO Work Phone: [facility] 12-17-2024 15:10-0400 SaO2% (BldA) [Mass fraction] 99 % Dr. Marycarmen Rodriguez DO Work Phone: [facility] 12-17-2024 15:10-0400 Systolic blood pressure 100 mm[Hg] Dr. Marycarmen Rodriguez DO Work Phone: [facility] 12-17-2024 05:06-0400 Body mass index (BMI) [Ratio] 31.3 kg/m2 Dr. Marycarmen Rodriguez DO Work Phone: [facility] 12-17-2024 05:06-0400 Body weight 96.[address] Marycarmen Rodriguez DO Work Phone: [facility] 12-17-2024 02:53-0400 Inhaled oxygen concentration 21 % Dr. Marycarmen Rodriguez DO Work Phone: [facility] 12-16-2024 11:59-0400 Body height 175.[address] Marycarmen Rodriguez DO Work Phone: [facility] 12-12-2024 10:23-0400 Body height 175.[address] Marycarmen Rodriguez DO Work Phone: [facility] 12-12-2024 10:23-0400 Body mass index (BMI) [Ratio] 31.7 kg/m2 Dr. Marycarmen Rodriguez DO Work Phone: [facility] 12-12-2024 10:23-0400 Body weight 97.[address] Marycarmen Rodriguez DO Work Phone: [facility] 12-12-2024 10:23-0400 Diastolic blood pressure 74 mm[Hg] Dr. Marycarmen Rodriguez DO Work Phone: [facility] 12-12-2024 10:23-0400 Heart rate 75 /min Dr. Marycarmen Rodriguez DO Work Phone: [facility] 12-12-2024 10:23-0400 Respiratory rate 16 /min Dr. Marycarmen Rodriguez DO Work Phone: [facility] 12-12-2024 10:23-0400 Systolic blood pressure 106 mm[Hg] Dr. Marycarmen Rodriguez DO Work Phone: [facility] 12-08-2024 12:30-0400 Body temperature 97.7 [degF] Dr. Marycarmen Rodriguez DO Work Phone: [facility] 12-08-2024 12:30-0400 Diastolic blood pressure 81 mm[Hg] Dr. Marycarmen Rodriguez DO Work Phone: [facility] 12-08-2024 12:30-0400 Heart rate 72 /min Dr. Marycarmen Rodriguez DO Work Phone: [facility] 12-08-2024 12:30-0400 Respiratory rate 18 /min Dr. Marycarmen Rodriguez DO Work Phone: [facility] 12-08-2024 12:30-0400 SaO2% (BldA) [Mass fraction] 96 % Dr. Marycarmen Rodriguez DO Work Phone: [facility] 12-08-2024 12:30-0400 Systolic blood pressure 121 mm[Hg] Dr. Marycarmen Rodriguez DO Work Phone: [facility] 12-08-2024 01:20-0400 Inhaled oxygen concentration 21 % Dr. Marycarmen Rodriguez DO Work Phone: [facility] 12-07-2024 17:24-0400 Body height 175.[address] Marycarmen Rodriguez DO Work Phone: [facility] 12-07-2024 17:24-0400 Body mass index (BMI) [Ratio] 32.1 kg/m2 Dr. Marycarmen Rodriguez DO Work Phone: [facility] 12-07-2024 17:24-0400 Body weight 98.[address] Marycarmen Rodriguez DO Work Phone: [facility] 12-07-2024 16:00-0400 SaO2% (BldA) [Mass fraction] 97 % Dr. Marycarmen Rodriguez DO Work Phone: [facility] 12-07-2024 15:13-0400 Body temperature 98.2 [degF] Dr. Marycarmen Rodriguez DO Work Phone: [facility] 12-07-2024 15:13-0400 Diastolic blood pressure 61 mm[Hg] Dr. Marycarmen Rodriguez DO Work Phone: [facility] 12-07-2024 15:13-0400 Heart rate 22 /min Dr. Marycarmen Rodriguez DO Work Phone: [facility] 12-07-2024 15:13-0400 Respiratory rate 22 /min Dr. Marycarmen Rodriguez DO Work Phone: [facility] 12-07-2024 15:13-0400 Systolic blood pressure 114 mm[Hg] Dr. Marycarmen Rodriguez DO Work Phone: [facility] 12-07-2024 11:05-0400 Inhaled oxygen flow rate 2 L/min Dr. Marycarmen Rodriguez DO Work Phone: [facility] 12-07-2024 10:52-0400 Body height 175.[address] Mayrcarmen Rodriguez DO Work Phone: [facility] 12-07-2024 10:52-0400 Body mass index (BMI) [Ratio] 33.4 kg/m2 Dr. Marycarmen Rodriguez DO Work Phone: [facility] 12-07-2024 10:52-0400 Body weight 102.[address] Marycarmen Rodriguez DO Work Phone: [facility] 12-06-2024 12:45-0400 Body temperature 98 [degF] Dr. Marycarmen Rodriguez DO Work Phone: [facility] 12-06-2024 12:45-0400 Diastolic blood pressure 86 mm[Hg] Dr. Marycarmen Rodriguez DO Work Phone: [facility] 12-06-2024 12:45-0400 Heart rate 84 /min Dr. Marycarmen Rodriguez DO Work Phone: [facility] 12-06-2024 12:45-0400 Respiratory rate 14 /min Dr. Marycarmen Rodriguez DO Work Phone: [facility] 12-06-2024 12:45-0400 SaO2% (BldA) [Mass fraction] 99 % Dr. Marycarmen Rodriguez DO Work Phone: [facility] 12-06-2024 12:45-0400 Systolic blood pressure 126 mm[Hg] Dr. Marycarmen Rodriguez DO Work Phone: [facility] 12-06-2024 06:00-0400 Body mass index (BMI) [Ratio] 33 kg/m2 Dr. Marycarmen Rodriguez DO Work Phone: [facility] 12-06-2024 06:00-0400 Body weight 101.[address] Marycarmen Rodriguez DO Work Phone: [facility] 12-06-2024 00:25-0400 Inhaled oxygen concentration 21 % Dr. Marycarmen Rodriguez DO Work Phone: [facility] 12-05-2024 08:28-0400 Heart rate 70 /min Dr. Marycarmen Rodriguez DO Work Phone: [facility] 12-05-2024 08:06-0400 Body temperature 97.6 [degF] Dr. Marycarmen Rodriguez DO Work Phone: [facility] 12-05-2024 08:06-0400 Diastolic blood pressure 80 mm[Hg] Dr. Marycarmen Rodriguez DO Work Phone: [facility] 12-05-2024 08:06-0400 Respiratory rate 18 /min Dr. Marycarmen Rodriguez DO Work Phone: [facility] 12-05-2024 08:06-0400 SaO2% (BldA) [Mass fraction] 100 % Dr. Marycarmen Rodriguez DO Work Phone: [facility] 12-05-2024 08:06-0400 Systolic blood pressure 123 mm[Hg] Dr. Marycarmen Rodriguez DO Work Phone: [facility] 12-05-2024 05:20-0400 Body mass index (BMI) [Ratio] 33.1 kg/m2 Dr. Marycarmen Rodriguez DO Work Phone: [facility] 12-05-2024 05:20-0400 Body weight 101.[address] Marycarmen Rodriguez DO Work Phone: [facility] 12-04-2024 22:55-0400 Inhaled oxygen concentration 21 % Dr. Marycarmen Rodriguez DO Work Phone: [facility] 12-04-2024 08:07-0400 Inhaled oxygen flow rate 2 L/min Dr. Marycarmen Rodriguez DO Work Phone: [facility] 12-02-2024 21:54-0400 Body height 175.[address] Marycarmen Rodriguez DO Work Phone: [facility] 12-02-2024 20:56-0400 Body temperature 98.8 [degF] Dr. Marycarmen Rodriguez DO Work Phone: [facility] 12-02-2024 20:56-0400 Diastolic blood pressure 78 mm[Hg] Dr. Marycarmen Rodriguez DO Work Phone: [facility] 12-02-2024 20:56-0400 Heart rate 77 /min Dr. Marycarmen Rodriguez DO Work Phone: [facility] 12-02-2024 20:56-0400 Respiratory rate 21 /min Dr. Marycarmen Rodriguez DO Work Phone: [facility] 12-02-2024 20:56-0400 SaO2% (BldA) [Mass fraction] 96 % Dr. Marycarmen Rodriguez DO Work Phone: [facility] 12-02-2024 20:56-0400 Systolic blood pressure 114 mm[Hg] Dr. Marycarmen Rodriguez DO Work Phone: [facility] 12-02-2024 20:21-0400 Inhaled oxygen flow rate 3 L/min Dr. Marycarmen Rodriguez DO Work Phone: [facility] 12-02-2024 20:16-0400 Body height 175.[address] Marycarmen Rodriguez DO Work Phone: [facility] 12-02-2024 20:16-0400 Body mass index (BMI) [Ratio] 35.9 kg/m2 Dr. Marycarmen Rodriguez DO Work Phone: [facility] 12-02-2024 20:16-0400 Body weight 110.[address] Marycarmen Rodriguez DO Work Phone: [facility] 12-02-2024 14:08-0400 Body temperature 98.8 [degF] Dr. Marycarmen Rodriguez DO Work Phone: [facility] 12-02-2024 14:08-0400 Diastolic blood pressure 72 mm[Hg] Dr. Marycarmen Rodriguez DO Work Phone: [facility] 12-02-2024 14:08-0400 Heart rate 78 /min Dr. Marycarmen Rodriguez DO Work Phone: [facility] 12-02-2024 14:08-0400 Respiratory rate 18 /min Dr. Marycarmen Rodriguez DO Work Phone: [facility] 12-02-2024 14:08-0400 SaO2% (BldA) [Mass fraction] 98 % Dr. Marycarmen Rodriguez DO Work Phone: [facility] 12-02-2024 14:08-0400 Systolic blood pressure 150 mm[Hg] Dr. Marycarmen Rodriguez DO Work Phone: [facility] 12-02-2024 14:01-0400 Inhaled oxygen flow rate 3 L/min Dr. Marycarmen Rodriguez DO Work Phone: [facility] 12-02-2024 08:32-0400 Body height 175.[address] Marycarmen Rodriguez DO Work Phone: [facility] 12-02-2024 08:32-0400 Body weight 109.[address] Marycarmen Rodriguez DO Work Phone: [facility] 12-02-2024 05:30-0400 Body mass index (BMI) [Ratio] 35.6 kg/m2 Dr. Marycarmen Rodriguez DO Work Phone: [facility] 11-30-2024 15:45-0400 Diastolic blood pressure 70 mm[Hg] Dr. Marycarmen Rodriguez DO Work Phone: [facility] 11-30-2024 15:45-0400 Systolic blood pressure 146 mm[Hg] Dr. Marycarmen Rodriguez DO Work Phone: [facility] 11-28-2024 09:15-0400 SaO2% (BldA) [Mass fraction] 94 % Dr. Marycarmen Rodriguez DO Work Phone: [facility] 11-28-2024 09:10-0400 Body temperature 97.5 [degF] Dr. Marycarmen Rodriguez DO Work Phone: [facility] 11-28-2024 09:10-0400 Diastolic blood pressure 64 mm[Hg] Dr. Marycarmen Rodriguez DO Work Phone: [facility] 11-28-2024 09:10-0400 Heart rate 86 /min Dr. Marycarmen Rodriguez DO Work Phone: [facility] 11-28-2024 09:10-0400 Respiratory rate 18 /min Dr. Marycarmen Rodriguez DO Work Phone: [facility] 11-28-2024 09:10-0400 Systolic blood pressure 129 mm[Hg] Dr. Marycarmen Rodriguez DO Work Phone: [facility] 11-28-2024 05:13-0400 Body mass index (BMI) [Ratio] 35.2 kg/m2 Dr. Marycarmen Rodriguez DO Work Phone: [facility] 11-28-2024 05:13-0400 Body weight 108.[address] Marycarmen Rodriguez DO Work Phone: [facility] 11-27-2024 15:54-0400 Body height 175.[address] Marycarmen Rodriguez DO Work Phone: [facility] 11-27-2024 15:54-0400 Body mass index (BMI) [Ratio] 35.4 kg/m2 Dr. Marycarmen Rodriguez DO Work Phone: [facility] 11-27-2024 15:54-0400 Body weight 108.[address] Marycarmen Rodriguez DO Work Phone: [facility] 11-27-2024 13:45-0400 Diastolic blood pressure 68 mm[Hg] Dr. Marycarmen Rodriguez DO Work Phone: [facility] 11-27-2024 13:45-0400 Heart rate 75 /min Dr. Marycarmen Rodriguez DO Work Phone: [facility] 11-27-2024 13:45-0400 Respiratory rate 21 /min Dr. Marycarmen Rodriguez DO Work Phone: [facility] 11-27-2024 13:45-0400 SaO2% (BldA) [Mass fraction] 95 % Dr. Marycarmen Rodriguez DO Work Phone: [facility] 11-27-2024 13:45-0400 Systolic blood pressure 115 mm[Hg] Dr. Marycarmen Rodriguez DO Work Phone: [facility] 11-26-2024 21:38-0400 Body temperature 98.1 [degF] Dr. Marycarmen Rodriguez DO Work Phone: [facility] 11-26-2024 21:38-0400 Diastolic blood pressure 68 mm[Hg] Dr. Marycarmen Rodriguez DO Work Phone: [facility] 11-26-2024 21:38-0400 Heart rate 68 /min Dr. Marycarmen Rodriguez DO Work Phone: [facility] 11-26-2024 21:38-0400 Respiratory rate 18 /min Dr. Marycarmen Rodriguez DO Work Phone: [facility] 11-26-2024 21:38-0400 SaO2% (BldA) [Mass fraction] 98 % Dr. Marycarmen Rodriguez DO Work Phone: [facility] 11-26-2024 21:38-0400 Systolic blood pressure 132 mm[Hg] Dr. Marycarmen Rodriguez DO Work Phone: [facility] 11-26-2024 18:03-0400 Inhaled oxygen flow rate 2 L/min Dr. Marycarmen Rodriguez DO Work Phone: [facility] 11-26-2024 17:37-0400 Body height 175.[address] Marycarmen Rodriguez DO Work Phone: [facility] 11-26-2024 17:37-0400 Body mass index (BMI) [Ratio] 37.3 kg/m2 Dr. Marycarmen Rodriguez DO Work Phone: [facility] 11-26-2024 17:37-0400 Body weight 114.[address] Marycarmen Rodriguez DO Work Phone: [facility] 11-22-2024 10:41-0400 Body mass index (BMI) [Ratio] 35.9 kg/m2 Dr. Marycarmen Rodriguez DO Work Phone: [facility] 11-22-2024 10:41-0400 Body weight 110.[address] Marycarmen Rodriguez DO Work Phone: [facility] 11-22-2024 10:41-0400 Diastolic blood pressure 62 mm[Hg] Dr. Marycarmen Rodriguez DO Work Phone: [facility] 11-22-2024 10:41-0400 Heart rate 66 /min Dr. Marycarmen Rodriguez DO Work Phone: [facility] 11-22-2024 10:41-0400 Respiratory rate 20 /min Dr. Marycarmen Rodriguez DO Work Phone: [facility] 11-22-2024 10:41-0400 Systolic blood pressure 107 mm[Hg] Dr. Marycarmen Rodriguez DO Work Phone: [facility] 10-31-2024 07:44-0400 Body mass index (BMI) [Ratio] 35.4 kg/m2 Dr. Marycarmen Rodriguez DO Work Phone: [facility] 10-31-2024 07:44-0400 Body temperature 97.1 [degF] Dr. Marycarmen Rodriguez DO Work Phone: [facility] 10-31-2024 07:44-0400 Body weight 108.[address] Marycarmen Rodriguez DO Work Phone: [facility] 10-31-2024 07:44-0400 Diastolic blood pressure 75 mm[Hg] Dr. Marycarmen Rodriguez DO Work Phone: [facility] 10-31-2024 07:44-0400 Heart rate 64 /min Dr. Marycarmen Rodriguez DO Work Phone: [facility] 10-31-2024 07:44-0400 Respiratory rate 20 /min Dr. Marycarmen Rodriguez DO Work Phone: [facility] 10-31-2024 07:44-0400 SaO2% (BldA) [Mass fraction] 97 % Dr. Marycarmen Rodriguez DO Work Phone: [facility] 10-31-2024 07:44-0400 Systolic blood pressure 135 mm[Hg] Dr. Marycarmen Rodriguez DO Work Phone: [facility] 10-25-2024 08:10-0400 Body height 175.[address] Marycarmen Rodriguez DO Work Phone: [facility] 10-25-2024 08:10-0400 Body mass index (BMI) [Ratio] 35.9 kg/m2 Dr. Marycarmen Rodriguez DO Work Phone: [facility] 10-25-2024 08:10-0400 Body weight 110.[address] Marycarmen Rodriguez DO Work Phone: [facility] 10-25-2024 08:10-0400 Diastolic blood pressure 85 mm[Hg] Dr. Marycarmen Rodriguez DO Work Phone: [facility] 10-25-2024 08:10-0400 Heart rate 85 /min Dr. Marycarmen Rodriguez DO Work Phone: [facility] 10-25-2024 08:10-0400 Respiratory rate 18 /min Dr. Marycarmen Rodriguez DO Work Phone: [facility] 10-25-2024 08:10-0400 Systolic blood pressure 121 mm[Hg] Dr. Marycarmen Rodriguez DO Work Phone: [facility] 09-20-2024 09:15-0400 Body height 175.[address] Marycarmen Rodriguez DO Work Phone: [facility] 09-20-2024 09:15-0400 Body mass index (BMI) [Ratio] 35.6 kg/m2 Dr. Marycarmen Rodriguez DO Work Phone: [facility] 09-20-2024 09:15-0400 Body temperature 96.8 [degF] Dr. Marycarmen Rodriguez DO Work Phone: [facility] 09-20-2024 09:15-0400 Body weight 109.[address] Marycarmen Rodriguez DO Work Phone: [facility] 09-20-2024 09:15-0400 Diastolic blood pressure 77 mm[Hg] Dr. Marycarmen Rodriguez DO Work Phone: [facility] 09-20-2024 09:15-0400 Heart rate 66 /min Dr. Marycarmen Rodriguez DO Work Phone: [facility] 09-20-2024 09:15-0400 Respiratory rate 18 /min Dr. Marycarmen Rodriguez DO Work Phone: [facility] 09-20-2024 09:15-0400 SaO2% (BldA) [Mass fraction] 97 % Dr. Marycarmen Rodriguez DO Work Phone: [facility] 09-20-2024 09:15-0400 Systolic blood pressure 121 mm[Hg] Dr. Marycarmen Rodriguez DO Work Phone: [facility] 07-18-2024 06:00-0400 Body height 175.[address] Marycarmen Rodriguez DO Work Phone: [facility] 07-18-2024 06:00-0400 Body weight 104.[address] Marycarmen Rodriguez DO Work Phone: [facility] 07-18-2024 06:00-0400 Heart rate 69 /min Dr. Marycarmen Rodriguez DO Work Phone: [facility] 07-18-2024 06:00-0400 SaO2% (BldA) [Mass fraction] 97 % Dr. Marycarmen Rodriguez DO Work Phone: [facility] 07-03-2024 08:35-0500 Body mass index (BMI) [Ratio] 36.6 kg/m2 Dr. Marycarmen Rodriguez DO Work Phone: [facility] 07-03-2024 08:35-0500 Body temperature 97.5 [degF] Dr. Marycarmen Rodriguez DO Work Phone: [facility] 07-03-2024 08:35-0500 Body weight 109.[address] Marycarmen Rodriguez DO Work Phone: [facility] 07-03-2024 08:35-0500 Diastolic blood pressure 77 mm[Hg] Dr. Marycarmen Rodriguez DO Work Phone: [facility] 07-03-2024 08:35-0500 Heart rate 72 /min Dr. Marycarmen Rodriguez DO Work Phone: [facility] 07-03-2024 08:35-0500 Respiratory rate 20 /min Dr. Marycarmen Rodriguez DO Work Phone: [facility] 07-03-2024 08:35-0500 SaO2% (BldA) [Mass fraction] 96 % Dr. Marycarmen Rodriguez DO Work Phone: [facility] 07-03-2024 08:35-0500 Systolic blood pressure 116 mm[Hg] Dr. Marycarmen Rodriguez DO Work Phone: [facility] 04-17-2024 15:55-0500 Body height [address] Marycarmen Rodriguez DO Work Phone: [facility] 04-17-2024 15:55-0500 Body mass index (BMI) [Ratio] 36.9 kg/m2 Dr. Marycarmen Rodriguez DO Work Phone: [facility] 04-17-2024 15:55-0500 Body weight 110.[address] Marycarmen Rodriguez DO Work Phone: [facility] 04-17-2024 15:55-0500 Diastolic blood pressure 53 mm[Hg] Dr. Marycarmen Rodriguez DO Work Phone: [facility] 04-17-2024 15:55-0500 Heart rate 70 /min Dr. Marycarmen Rodriguez DO Work Phone: [facility] 04-17-2024 15:55-0500 Respiratory rate 18 /min Dr. Marycarmen Rodriguez DO Work Phone: [facility] 04-17-2024 15:55-0500 SaO2% (BldA) [Mass fraction] 94 % Dr. Marycarmen Rodriguez DO Work Phone: [facility] 04-17-2024 15:55-0500 Systolic blood pressure 91 mm[Hg] Dr. Marycarmen Rodriguez DO Work Phone: [facility] 03-27-2024 10:17-0500 Diastolic blood pressure 79 mm[Hg] Dr. Marycarmen Rodriguez DO Work Phone: [facility] 03-27-2024 10:17-0500 Heart rate 67 /min Dr. Marycarmen Rodriguez DO Work Phone: [facility] 03-27-2024 10:17-0500 Respiratory rate 18 /min Dr. Marycarmen Rodriguez DO Work Phone: [facility] 03-27-2024 10:17-0500 Systolic blood pressure 134 mm[Hg] Dr. Marycarmen Rodriguez DO Work Phone: [facility] 03-20-2024 08:28-0500 Body mass index (BMI) [Ratio] 37.5 kg/m2 Dr. Marycarmen Rodriguez DO Work Phone: [facility] 03-20-2024 08:28-0500 Body weight 112.[address] Marycarmen Rodriguez DO Work Phone: [facility] 03-20-2024 08:28-0500 Diastolic blood pressure 89 mm[Hg] Dr. Marycaremn Rodriguez DO Work Phone: [facility] 03-20-2024 08:28-0500 Heart rate 61 /min Dr. Marycarmen Rodriguez DO Work Phone: [facility] 03-20-2024 08:28-0500 Respiratory rate 18 /min Dr. Marycarmen Rodriguez DO Work Phone: [facility] 03-20-2024 08:28-0500 Systolic blood pressure 141 mm[Hg] Dr. Marycarmen Rodriguez DO Work Phone: [facility] 12-21-2022 07:51-0400 Body height 172.[address] Marycarmen Rodriguez Work Phone: [facility] 12-21-2022 07:51-0400 Body weight 85.[address] Marycarmen Rodriguez Work Phone: [facility] 12-18-2022 08:27-0400 Body mass index (BMI) [Ratio] 28.7 kg/m2 Dr. Marycarmen Rodriguez Work Phone: [facility] 12-15-2022 13:03-0400 Body mass index (BMI) [Ratio] 28.7 kg/m2 Dr. Marycarmen Rodriguez Work Phone: [facility] 12-15-2022 13:03-0400 Body weight 85.[address] Marycarmen Rodriguez Work Phone: [facility] 12-15-2022 13:03-0400 Diastolic blood pressure 92 mm[Hg] Dr. Marycarmen Rodriguez Work Phone: [facility] 12-15-2022 13:03-0400 Heart rate 72 /min Dr. Marycarmen Rodriguez Work Phone: [facility] 12-15-2022 13:03-0400 Respiratory rate 16 /min Dr. Marycarmen Rodriguez Work Phone: [facility] 12-15-2022 13:03-0400 Systolic blood pressure 156 mm[Hg] Dr. Marycarmen Rodriguez Work Phone: [facility] 10-13-2022 10:59-0400 Body height 172.72 cm Marycarmen Jennifer [facility] 10-13-2022 10:59-0400 Body mass index (BMI) [Ratio] 25.4 kg/m2 Marycarmen [facility] 10-13-2022 10:59-0400 Body weight 75.74 kg Marycarmen Jennifer [facility] 10-13-2022 10:59-0400 Diastolic blood pressure 75 mm[Hg] Marycarmen [facility] 10-13-2022 10:59-0400 Heart rate 65 /min Marycarmen [facility] 10-13-2022 10:59-0400 Respiratory rate 18 /min Marycarmen Jennifer [facility] 10-13-2022 10:59-0400 SaO2% (BldA) [Mass fraction] 94 % Marycarmen [facility] 10-13-2022 10:59-0400 Systolic blood pressure 143 mm[Hg] [facility] 09-21-2022 15:30-0400 Body mass index (BMI) [Ratio] 34.7 kg/m2 [facility] 09-21-2022 15:27-0400 Body temperature 98 [degF] Marycarmen [facility] 09-21-2022 15:27-0400 Diastolic blood pressure 84 mm[Hg] Marycarmen [facility] 09-21-2022 15:27-0400 Heart rate 79 /min Marycarmen Jennifer [facility] 09-21-2022 15:27-0400 Respiratory rate 17 /min Marycarmen [facility] 09-21-2022 15:27-0400 SaO2% (BldA) [Mass fraction] 96 % [facility] 09-21-2022 15:27-0400 Systolic blood pressure 143 mm[Hg] Marycarmen [facility] 09-21-2022 06:25-0400 Body weight 103.6 kg Marycarmen [facility] 09-19-2022 01:30-0400 Inhaled oxygen concentration 21 % Marycarmen [facility] 09-01-2022 09:59-0400 Diastolic blood pressure 68 mm[Hg] Marycarmen [facility] 09-01-2022 09:59-0400 Heart rate 49 /min Marycarmen Jennifer [facility] 09-01-2022 09:59-0400 Systolic blood pressure 127 mm[Hg] Marycarmen [facility] 09-01-2022 09:57-0400 Body temperature 97.9 [degF] Marycarmen [facility] 09-01-2022 09:57-0400 Respiratory rate 18 /min Marycarmen [facility] 09-01-2022 09:57-0400 SaO2% (BldA) [Mass fraction] 93 % Marycarmen [facility] 09-01-2022 04:08-0400 Body mass index (BMI) [Ratio] 35.2 kg/m2 Marycarmen [facility] 09-01-2022 04:08-0400 Body weight 108.2 kg Marycarmen Jennifer [facility] 08-31-2022 11:42-0400 Body height 175.26 cm Marycarmen Jennifer [facility] 08-19-2022 10:01-0400 Body height 175.26 cm Marycarmen Jennifer [facility] 08-19-2022 10:01-0400 Body mass index (BMI) [Ratio] 35.4 kg/m2 Marycarmen [facility] 08-19-2022 10:01-0400 Body weight 109.03 kg Marycarmen [facility] 08-19-2022 10:01-0400 Diastolic blood pressure 79 mm[Hg] Marycarmen [facility] 08-19-2022 10:01-0400 Heart rate 62 /min Marycarmen [facility] 08-19-2022 10:01-0400 Respiratory rate 18 /min Marycarmen SWA[facility] 08-19-2022 10:01-0400 Systolic blood pressure 144 mm[Hg] Marycarmen SWAIN [facility] 04-16-2022 12:43-0500 Body height 175.[address] Marycarmen Rodriguez Work Phone: [facility] 04-16-2022 12:43-0500 Body mass index (BMI) [Ratio] 35.2 kg/m2 Dr. Marycarmen Rodriguez Work Phone: [facility] 04-16-2022 12:43-0500 Body temperature 97 [degF] Dr. Marycarmen Rodriguez Work Phone: [facility] 04-16-2022 12:43-0500 Body weight 108.[address] Marycarmen Rodriguez Work Phone: [facility] 04-16-2022 12:43-0500 Diastolic blood pressure 78 mm[Hg] Dr. Marycarmen Rodriguez Work Phone: [facility] 04-16-2022 12:43-0500 Heart rate 66 /min Dr. Marycarmen Rodriguez Work Phone: [facility] 04-16-2022 12:43-0500 Respiratory rate 18 /min Dr. Marycarmen Rodriguez Work Phone: [facility] 04-16-2022 12:43-0500 SaO2% (BldA) [Mass fraction] 94 % Dr. Marycarmen Rodriguez Work Phone: [facility] 04-16-2022 12:43-0500 Systolic blood pressure 125 mm[Hg] Dr. Marycarmen Rodriguez Work Phone: [facility] 04-14-2022 10:27-0500 Body mass index (BMI) [Ratio] 35.2 kg/m2 Dr. Marycarmen Rodriguez Work Phone: [facility] 04-14-2022 10:27-0500 Body weight 108.[address] Marycarmen Rodriguez Work Phone: [facility] 04-14-2022 10:27-0500 Diastolic blood pressure 68 mm[Hg] Dr. Marycarmen Rodriguez Work Phone: [facility] 04-14-2022 10:27-0500 Heart rate 64 /min Dr. Marcyarmen Rodriguez Work Phone: [facility] 04-14-2022 10:27-0500 Respiratory rate 18 /min Dr. Marycarmen Rodriguez Work Phone: [facility] 04-14-2022 10:27-0500 Systolic blood pressure 130 mm[Hg] Dr. Marycarmen Rodriguez Work Phone: [facility] 03-27-2022 13:25-0500 Body temperature 97.9 [degF] Dr. Marycarmen Rodriguez Work Phone: [facility] 03-27-2022 13:25-0500 Diastolic blood pressure 86 mm[Hg] Dr. Marycarmen Rodriguez Work Phone: [facility] 03-27-2022 13:25-0500 Heart rate 86 /min Dr. Marycarmen Rodriguez Work Phone: [facility] 03-27-2022 13:25-0500 Respiratory rate 14 /min Dr. Marycarmen Rodriguez Work Phone: [facility] 03-27-2022 13:25-0500 SaO2% (BldA) [Mass fraction] 96 % Dr. Marycarmen Rodriguez Work Phone: [facility] 03-27-2022 13:25-0500 Systolic blood pressure 134 mm[Hg] Dr. Marycarmen Rodriguez Work Phone: [facility] 01-07-2022 11:07-0400 Body mass index (BMI) [Ratio] 34.9 kg/m2 Dr. Marycarmen Rodriguez Work Phone: [facility] Work Phone: 01-07-2022 11:07-0400 Body temperature 97.4 [degF] Dr. Marycarmen Rodriguez Work Phone: [facility] Work Phone: 01-07-2022 11:07-0400 Body weight 107.[address] Marycarmen Rodriguez Work Phone: [facility] Work Phone: 01-07-2022 11:07-0400 Diastolic blood pressure 87 mm[Hg] Dr. Marycarmen Rodriguez Work Phone: [facility] Work Phone: 01-07-2022 11:07-0400 Heart rate 60 /min Dr. Marycarmen Rodriguez Work Phone: [facility] Work Phone: 01-07-2022 11:07-0400 Respiratory rate 16 /min Dr. Marycarmen Rodriguez Work Phone: [facility] Work Phone: 01-07-2022 11:07-0400 SaO2% (BldA) [Mass fraction] 96 % Dr. Marycarmen Rodriguez Work Phone: [facility] Work Phone: 01-07-2022 11:07-0400 Systolic blood pressure 155 mm[Hg] Dr. Marycarmen Rodriguez Work Phone: [facility] Work Phone: 11-21-2021 10:24-0400 Body height 175.[address] Marycarmen Rodriguez Work Phone: [facility] Work Phone: 11-21-2021 10:24-0400 Body mass index (BMI) [Ratio] 34.9 kg/m2 Dr. Marycarmen Rodriguez Work Phone: [facility] Work Phone: 11-21-2021 10:24-0400 Body weight 107.[address] Marycarmen Rodriguez Work Phone: [facility] Work Phone: 11-21-2021 10:24-0400 Diastolic blood pressure 77 mm[Hg] Dr. Marycarmen Rodriguez Work Phone: [facility] Work Phone: 11-21-2021 10:24-0400 Heart rate 61 /min Dr. Marycarmen Rodriguez Work Phone: [facility] Work Phone: 11-21-2021 10:24-0400 Respiratory rate 18 /min Dr. Marycarmen Rodriguez Work Phone: [facility] Work Phone: 11-21-2021 10:24-0400 SaO2% (BldA) [Mass fraction] 97 % Dr. Marycarmen Rodriguez Work Phone: [facility] Work Phone: 11-21-2021 10:24-0400 Systolic blood pressure 138 mm[Hg] Dr. Marycarmen Rodriguez Work Phone: [facility] Work Phone: 11-16-2021 16:49-0400 Diastolic blood pressure 87 mm[Hg] Dr. Marycarmen Rodriguez Work Phone: [facility] Work Phone: 11-16-2021 16:49-0400 Heart rate 53 /min Dr. Marycarmen Rodriguez Work Phone: [facility] Work Phone: 11-16-2021 16:49-0400 Respiratory rate 16 /min Dr. Marycarmen Rodriguez Work Phone: [facility] Work Phone: 11-16-2021 16:49-0400 SaO2% (BldA) [Mass fraction] 93 % Dr. Marycarmen Rodriguez Work Phone: [facility] Work Phone: 11-16-2021 16:49-0400 Systolic blood pressure 117 mm[Hg] Dr. Marycarmen Rodriguez Work Phone: [facility] Work Phone: 11-16-2021 12:55-0400 Body mass index (BMI) [Ratio] 33.2 kg/m2 Dr. Marycarmen Rodriguez Work Phone: [facility] Work Phone: 11-16-2021 12:55-0400 Body temperature 97.6 [degF] Dr. Marycarmen Rodriguez Work Phone: [facility] Work Phone: 11-16-2021 12:55-0400 Body weight 102.[address] Marycarmen Rodriguez Work Phone: [facility] Work Phone: 09-16-2021 10:37-0400 Body height 175.[address] Marycarmen Rodriguez Work Phone: [facility] Work Phone: 09-16-2021 10:37-0400 Body mass index (BMI) [Ratio] 35.7 kg/m2 Dr. Marycarmen Rodriguez Work Phone: [facility] Work Phone: 09-16-2021 10:37-0400 Body weight 109.[address] Marycarmen Rodriguez Work Phone: [facility] Work Phone: 09-16-2021 10:37-0400 Diastolic blood pressure 69 mm[Hg] Dr. Marycarmen Rodriguez Work Phone: [facility] Work Phone: 09-16-2021 10:37-0400 Heart rate 50 /min Dr. Marycarmen Rodriguez Work Phone: [facility] Work Phone: 09-16-2021 10:37-0400 Respiratory rate 18 /min Dr. Marycarmen Rodriguez Work Phone: [facility] Work Phone: 09-16-2021 10:37-0400 Systolic blood pressure 122 mm[Hg] Dr. Marycarmen Rodriguez Work Phone: [facility] Work Phone: 08-01-2021 10:02-0400 Body mass index (BMI) [Ratio] 35.7 kg/m2 Dr. Marycarmen Rodriguez Work Phone: [facility] Work Phone: 08-01-2021 10:02-0400 Body weight 109.[address] Marycarmen Rodriguez Work Phone: [facility] Work Phone: 08-01-2021 10:02-0400 Diastolic blood pressure 81 mm[Hg] Dr. Marycarmen Rodriguez Work Phone: [facility] Work Phone: 08-01-2021 10:02-0400 Heart rate 59 /min Dr. Marycarmen Rodriguez Work Phone: [facility] Work Phone: 08-01-2021 10:02-0400 Respiratory rate 18 /min Dr. Marycarmen Rodriguez Work Phone: [facility] Work Phone: 08-01-2021 10:02-0400 SaO2% (BldA) [Mass fraction] 97 % Dr. Marycarmen Rodriguez Work Phone: [facility] Work Phone: 08-01-2021 10:02-0400 Systolic blood pressure 133 mm[Hg] Dr. Marycarmen Rodriguez Work Phone: [facility] Work Phone: 08-01-2021 10:02-0400 Body height 175.[address] Marycarmen Rodriguez Work Phone: [facility] Work Phone: 08-01-2021 10:02-0400 Body mass index (BMI) [Ratio] 35.7 kg/m2 Dr. Marycarmen Rodriguez Work Phone: [facility] Work Phone: 08-01-2021 10:02-0400 Body weight 109.[address] Marycarmen Rodriguez Work Phone: [facility] Work Phone: 08-01-2021 10:02-0400 Diastolic blood pressure 81 mm[Hg] Dr. Marycarmen Rodriguez Work Phone: [facility] Work Phone: 08-01-2021 10:02-0400 Heart rate 59 /min Dr. Marycarmen Rodriguez Work Phone: [facility] Work Phone: 08-01-2021 10:02-0400 Respiratory rate 18 /min Dr. Marycarmen Rodriguez Work Phone: [facility] Work Phone: 08-01-2021 10:02-0400 SaO2% (BldA) [Mass fraction] 97 % Dr. Marycarmen Rodriguez Work Phone: [facility] Work Phone: 08-01-2021 10:02-0400 Systolic blood pressure 133 mm[Hg] Dr. Marycarmen Rodriguez Work Phone: [facility] Work Phone: 06-10-2021 18:38-0500 Diastolic blood pressure 75 mm[Hg] Dr. Marycarmen Rodriguez Work Phone: [facility] Work Phone: 06-10-2021 18:38-0500 Heart rate 57 /min Dr. Marycarmen Rodriguez Work Phone: [facility] Work Phone: 06-10-2021 18:38-0500 Respiratory rate 14 /min Dr. Marycarmen Rodriguez Work Phone: [facility] Work Phone: 06-10-2021 18:38-0500 SaO2% (BldA) [Mass fraction] 96 % Dr. Marycarmen Rodriguez Work Phone: [facility] Work Phone: 06-10-2021 18:38-0500 Systolic blood pressure 121 mm[Hg] Dr. Marycarmen Rodriguez Work Phone: [facility] Work Phone: 06-10-2021 13:36-0500 Body mass index (BMI) [Ratio] 34 kg/m2 Dr. Marycarmen Rodriguez Work Phone: [facility] Work Phone: 06-10-2021 13:36-0500 Body temperature 97 [degF] Dr. Marycarmen Rodriguez Work Phone: [facility] Work Phone: 06-10-2021 13:36-0500 Body weight 104.[address] Marycarmen Rodriguez Work Phone: [facility] Work Phone: 05-19-2021 16:55-0500 Respiratory rate 16 /min Dr. Marycarmen Rodriguez Work Phone: [facility] Work Phone: 05-19-2021 14:43-0500 Body temperature 96.5 [degF] Dr. Marycarmen Rodriguez Work Phone: [facility] Work Phone: 05-19-2021 14:43-0500 Diastolic blood pressure 94 mm[Hg] Dr. Marycarmen Rodriguez Work Phone: [facility] Work Phone: 05-19-2021 14:43-0500 Heart rate 63 /min Dr. Marycarmen Rodriguez Work Phone: [facility] Work Phone: 05-19-2021 14:43-0500 SaO2% (BldA) [Mass fraction] 99 % Dr. Marycarmen Rodriguez Work Phone: [facility] Work Phone: 05-19-2021 14:43-0500 Systolic blood pressure 172 mm[Hg] Dr. Marycarmen Rodriguez Work Phone: [facility] Work Phone: 05-19-2021 14:42-0500 Body mass index (BMI) [Ratio] 34 kg/m2 Dr. Marycarmen Rodriguez Work Phone: [facility] Work Phone: 05-19-2021 14:42-0500 Body weight 104.[address] Marycarmen Rodriguez Work Phone: [facility] Work Phone: 12-26-2020 10:29-0400 Diastolic blood pressure 76 mm[Hg] Eladio Ingram MD Work Phone: [facility] 12-26-2020 10:29-0400 Systolic blood pressure 141 mm[Hg] Eladio Ingram MD Work Phone: [facility] 12-26-2020 10:24-0400 Body height 175.3 cm Eladio Ingram MD Work Phone: [facility] 12-26-2020 10:24-0400 Body mass index (BMI) [Ratio] 33.67 kg/m2 Eladio Ingram MD Work Phone: [facility] 12-26-2020 10:24-0400 Body weight 103.42 kg Eladio Ingram MD Work Phone: [facility] 12-26-2020 10:24-0400 Heart rate 59 /min Eladio Ingram MD Work Phone: [facility] 12-26-2020 10:24-0400 SaO2% (BldA) [Mass fraction] 95 % Eladio Ingram MD Work Phone: [facility] 10-09-2020 10:53-0400 Diastolic blood pressure 72 mm[Hg] Fernanda Acuña MA[employer]TENAN[employer] ADVISOR Work Phone: [facility] 10-09-2020 10:53-0400 Systolic blood pressure 134 mm[Hg] Fernanda Acuña MAINTENANCE ADVISOR Work Phone: [facility] 10-09-2020 09:59-0400 Body mass index (BMI) [Ratio] 34.6 kg/m2 Fernanda Acuña MAINTENANCE ADVISOR Work Phone: [facility] 10-09-2020 09:59-0400 Body weight 106.28 kg Fernanda Acuña MAINTENANCE ADVISOR Work Phone: [facility] 10-09-2020 09:59-0400 Heart rate 58 /min Fernanda Acuña MAINTENANCE ADVISOR Work Phone: [facility] 10-09-2020 09:59-0400 Respiratory rate 16 /min Fernanda Acuña MAINTENANCE ADVISOR Work Phone: [facility] 10-09-2020 09:59-0400 SaO2% (BldA) [Mass fraction] 94 % Fernanda Acuña CNP Work Phone: [facility] 12-17-2016 11:21-0400 BMI (Body Mass Index) 32.99 kg/m2 Eladio Ingram [facility] Work Phone: 12-17-2016 11:21-0400 BP Diastolic 82 mm[Hg] Eladio Ingram [facility] Work Phone: 12-17-2016 11:21-0400 BP Systolic 150 mm[Hg] Eladio Ingram [facility] Work Phone: 12-17-2016 11:21-0400 Height 175.3 cm Eladio Ingram [facility] Work Phone: 12-17-2016 11:21-0400 Pulse (Heart Rate) 70 /min Eladio Ingram [facility] Work Phone: 12-17-2016 [id number] Pulse Oximetry 97 % Eladio Ingram [facility] Work Phone: 12-17-2016 11:0400 Weight 101.33 kg Eladio Ingram [facility] Work Phone: Encounters Encounter Date Encounter Type Care Provider Facility Start: 12-25-2024 ambulatory [facility] Facility: [facility] Start: 12-21-2024 ambulatory Efandrés Videse OLS Fa cility:[facility] Start: 12-20-2024 End: 12-20-2024 Emergency department patient visit Jody Servin Facility:[facility] Start: 12-20-2024 ambulatory [facility] Facility: [facility] Start: 12-18-2024 ambulatory Boyd Rock OLS Fa cility:[facility] Start: 12-17-2024 Dr. Marycarmen collins DO -[facility] Work Phone: Start: 12-16-2024 Dr. Marycarmen collins DO [facility] Work Phone: Start: 12-16-2024 Dr. Lance Rodriguez MD -[facility] Start: 12-15-2024 End: 12-17-2024 Evaluation and management of inpatient Dr. Marycarmen Rodriguez DO Work Phone: -Progressive Care Unit Start: 12-15-2024 ambulatory Marycarmen ChiuJennifer Facility: [facility] Start: 12-15-2024 End: 12-17-2024 Dr. Marycarmen Marlow DO -Progressive Care Unit Work Phone: Start: 12-13-2024 ambulatory Lupetesha Rock OLS Fa cility:[facility] Start: 12-13-2024 Boyd Rock MD [facility] Jeanine Radha Start: 12-12-2024 End: 12-12-[address] Marycarmen Rodriguez DO Work Phone: -Laboratory Start: 12-12-2024 End: 12-12-2024 Gustabo POOL -Laboratory Work Phone: Start: 12-12-2024 End: 12-12-2024 Gustabo Pérez BLAST FURNACE OPERATOR-C -[facility] Work Phone: Start: 12-12-2024 End: 12-12-[address] Marycarmen Rodriguez DO Work Phone: -[facility] Start: 12-12-2024 End: 12-12-2024 ambulatory Gustabo Pérez NP Facility:[facility] Start: 12-08-2024 Dr. Alex Sanon MD -[facility] Work Phone: Start: 12-07-2024 End: 12-08-[address] Marycarmen Rodriguez DO Work Phone: -Progressive Care Unit Start: 12-07-2024 End: 12-08-2024 ambulatory Shaan Santos Facility:[facility] Start: 12-07-2024 End: 12-08-[address] [facility] Work Phone: Start: 12-06-2024 End: 12-06-2024 Dr. Marcin Araujo MD -Pulmonary Services/Neurology Work Phone: Start: 12-06-2024 End: 12-06-[address] Marycarmen Rodriguez DO Work Phone: -Pulmonary Services/Neurology Start: 12-06-2024 Dr. Alex Sanon MD -[facility] Work Phone: Start: 12-05-2024 Dr. Alex Sanon MD -[facility] Work Phone: Start: 12-05-[address] Marycarmen vera DO Work Phone: -[facility] Start: 12-05-2024 Dr. Marcin Araujo MD [facility] Start: 12-04-[address] [facility] Work Phone: Start: 12-04-2024 Dr. Marcin Araujo MD [facility] Start: 12-03-2024 Dr. Ramonita Herron MD -[facility] Work Phone: Start: 12-03-2024 Dr. Marcin Araujo MD [facility] Start: 12-03-2024 ambulatory Abraham Cool ility:[facility] Start: 12-03-2024 End: 12-06-2024 Evaluation and management of inpatient Dr. Marycarmen Rodriguez DO Work Phone: -Progressive Care Unit Start: 12-03-2024 End: 12-06-2024 Dr. Alex Sanon MD -Progressive Care Unit Work Phone: Start: 12-02-2024 Dr. Mracin Araujo MD -[facility] Start: 12-02-2024 ambulatory Abraham Cool ility:[facility] Start: 12-02-2024 Evaluation and manag ement of inpatient Dr. Marycarmen Rodriguez DO Work Phone: -Intensive Care Unit Start: 12-02-2024 Dr. Abraham Ridley DO -Intensive Care Unit Work Phone: Start: 12-02-2024 Dr. Nickie Danielson DO -[facility] Work Phone: Start: 12-01-2024 Dr. Marcin Araujo MD -[facility] Start: 11-30-2024 End: 12-02-2024 Evaluation and management of inpatient Dr. Marycarmen Rodriguez DO Work Phone: -Intensive Care Unit Start: 11-30-2024 ambulatory [facility] Facility:[facility] Start: 11-30-2024 End: 12-02-2024 Dr. Abraham Ridley DO -Intensive Care Unit Work Phone: Start: 11-27-2024 Dr. Jose Hay MD [facility] Start: 11-27-[address] Marycarmen vera DO Work Phone: -[facility] Start: 11-27-2024 End: 11-28-2024 ambulatory Jose Jose Armando Facility:[facility] Start: 11-27-2024 End: 11-28-2024 observation encounter [...] Dr. Marycarmen Rodriguez DO Work Phone: -Radiology [facility] Start: 11-22-2024 End: 11-22-2024 Gustabo Pérez BLAST FURNACE OPERATOR-C -Radiology [facility] Work Phone: Start: 11-22-2024 End: 11-22-2024 Gustabo Pérez BLAST FURNACE OPERATOR-C -[facility] Work Phone: Start: 11-22-2024 End: 11-22-[address] Marycarmen Rodriguez DO Work Phone: -[facility] Start: 11-22-2024 End: 11-22-2024 ambulatory Gustabo Pérez BLAST FURNACE OPERATOR Facility:[facility] Start: 11-20-2024 End: 11-20-[address] Marycarmen Rodriguez DO Work Phone: -Radiology [facility] Start: 11-20-2024 End: 11-20-2024 Dr. Brooks Carpenter MD -Radiology [facility] Work Phone: Start: 11-20-2024 End: 11-20-2024 ambulatory Marycarmen Rodriguez Facility:[facility] Start: 11-13-2024 ambulatory Jose Hay Facility:[facility] Start: 11-13-2024 Non-patient / Non-visit Dr. Jose colon MD -[facility] Start: 11-13-2024 Dr. Jose Hay MD -[facility] Start: 11-10-2024 End: 11-10-[address] Marycarmen Rodriguez DO Work Phone: -Sleep Lab Start: 11-10-2024 End: 11-10-2024 Patient encounter procedure BLAST FURNACE OPERATOR Maren Olivas -Sleep Lab Work Phone: Start: 11-10-2024 End: 11-10-2024 BLAST FURNACE OPERATOR Maren Olivas -Sleep Lab Work Phone: Start: 11-10-2024 ambulatory Gustabo Pérez BLAST FURNACE OPERATOR Facility :[facility] Start: 11-10-2024 Non-patient / Non-visit Dr. Lance pereira MD -[facility] Work Phone: Start: 11-10-2024 Dr. Lance Rodriguez MD -[facility] Work Phone: Start: 11-10-2024 End: 11-10-[address] Marycarmen Rodriguez DO Work Phone: -Cardiovascular Services Start: 11-10-2024 End: 11-10-2024 Patient encounter procedure Gustabo Pérez BLAST FURNACE OPERATOR-C -Cardiovascular Services Work Phone: Start: 11-10-2024 End: 11-10-2024 Gustabo Pérez BLAST FURNACE OPERATOR-C -Cardiovascular Services Work Phone: Start: 11-09-2024 End: 11-10-[address] Marycarmen Rodriguez DO Work Phone: -Laboratory [facility] Start: 11-09-2024 End: 11-09-[address] Marycarmen Rodriguez DO -Laboratory [facility] Start: 11-09-2024 End: 11-09-2024 Dr. Marycarmen Rodriguez DO -Laboratory [facility] Start: 11-09-2024 End: 11-09-2024 ambulatory Marycarmen Rodriguez Facility:[facility] Start: 10-31-2024 End: 10-31-2024 Patient encounter procedure BLAST FURNACE OPERATOR Maren Olivas [facility] Work Phone: Start: 10-31-2024 End: 10-31-2024 BLAST FURNACE OPERATOR Maren Olivas [facility] Work Phone: Start: 10-31-2024 End: 10-31-[address] Marycarmen Rodriguez DO Work Phone: [facility] Start: 10-26-2024 End: 10-26-[address] Marycarmen Rodriguez DO Work Phone: -Sleep Lab Start: 10-26-2024 End: 10-26-2024 Patient encounter procedure Marni Horn BLAST FURNACE OPERATOR-C -Sleep Lab Work Phone: Start: 10-26-2024 End: 10-26-2024 Marni Horn BLAST FURNACE OPERATOR-C -Sleep Lab Work Phone: Start: 10-25-2024 End: 10-25-2024 Patient encounter procedure Gustabo Pérez BLAST FURNACE OPERATOR-C -[facility] Work Phone: Start: 10-25-2024 End: 10-25-2024 Gustabo Pérez BLAST FURNACE OPERATOR-C -[facility] Work Phone: Start: 10-25-2024 End: 10-26-[address] Marycarmen Rodriguez DO Work Phone: [facility] Work Phone: Start: 10-18-2024 End: 10-18-[address] Marycarmen Rodriguez DO Work Phone: [facility] Work Phone: Start: 10-18-2024 End: 10-18-2024 Patient encounter procedure Marni Horn BLAST FURNACE OPERATOR-C -Sleep Lab Work Phone: Start: 10-18-2024 End: 10-18-2024 Marni Horn BLAST FURNACE OPERATOR-C -Sleep Lab Work Phone: Start: 10-18-2024 End: 10-18-[address] Marycarmen Rodriguez DO Work Phone: [facility] Work Phone: Start: 10-18-2024 End: 10-18-[address] Brooks Carpenter MD -Laboratory Work Phone: Start: 10-18-2024 End: 10-18-2024 Dr. Brooks Carpenter MD -Laboratory Work Phone: Start: 10-18-2024 End: 10-18-2024 ambulatory Marni Horn NP Facility:[facility] Start: 09-29-2024 End: 09-29-[address] Marycarmen Rodriguez DO Work Phone: [facility] Work Phone: Start: 09-29-2024 End: 09-29-[address] Marycarmen Rodriguez DO -Laboratory [facility] Work Phone: Start: 09-29-2024 End: 09-29-2024 Dr. Marycarmen Rodriguez DO -Laboratory [employer] Work Phone: Start: 09-29-2024 End: 09-29-2024 ambulatory Marycarmen Rodriguez Facility:[facility] Start: 09-22-2024 End: 09-22-[address] Marycarmen Rodriguez DO Work Phone: [facility] Work Phone: Start: 09-22-2024 End: 09-22-2024 Patient encounter procedure Marni Horn BLAST FURNACE OPERATOR-C -Sleep Lab Work Phone: Start: 09-22-2024 End: 09-22-2024 Marni Horn BLAST FURNACE OPERATOR-C -Sleep Lab Work Phone: Start: 09-22-2024 End: 09-22-2024 ambulatory Marni Horn BLAST FURNACE OPERATOR Facility:[facility] Start: 09-20-2024 End: 09-20-[address] Marycarmen Rodriguez DO Work Phone: [facility] Work Phone: Start: 09-20-2024 End: 09-20-2024 Patient encounter procedure BLAST FURNACE OPERATOR Maren Brendon -Laboratory Work Phone: Start: 09-20-2024 End: 09-20-2024 BLAST FURNACE OPERATOR Maren Olivas -Laboratory Work Phone: Start: 09-20-2024 End: 09-20-2024 Patient encounter procedure BLAST FURNACE OPERATOR Maren Jonatanneelam -[facility] Work Phone: Start: 09-20-2024 End: 09-20-2024 BLAST FURNACE OPERATOR Maren Olivas -[facility] Work Phone: Start: 09-20-2024 End: 09-20-[address] Marycarmen Rodriguez DO Work Phone: [facility] Work Phone: Start: 09-20-2024 End: 09-20-2024 ambulatory Maren Olivas Facility:[facility] Start: 08-03-2024 End: 08-03-[address] Marycarmen Rodriguez DO Work Phone: [facility] Work Phone: Start: 08-03-2024 End: 08-03-2024 Patient encounter procedure Marni Horn NP-C -Sleep Lab Work Phone: Start: 08-03-2024 End: 08-03-2024 Marni Horn BLAST FURNACE OPERATOR-C -Sleep Lab Work Phone: Start: 08-03-2024 End: 08-03-2024 ambulatory Marni Horn NP Facility:[facility] Start: 07-18-2024 ambulatory Marni Horn BLAST FURNACE OPERATOR Fac ility:[facility] Start: 07-18-2024 Non-patient / Non-visit Dr. Zen schultz DO -[facility] Start: 07-18-2024 End: 07-18-[address] Marycarmen Rodriguez DO Work Phone: [facility] Work Phone: Start: 07-18-2024 End: 07-18-2024 Patient encounter procedure Marni Horn BLAST FURNACE OPERATOR-C -Pulmonary Services/Neurology Work Phone: Start: 07-17-2024 Non-patient / Non-visit Dr. Zen schultz DO -[facility] Start: 07-17-2024 End: 07-18-[address] Marycarmen Rodriguez DO Work Phone: [facility] Work Phone: Start: 07-17-2024 End: 07-17-2024 Patient encounter procedure Marni POOL -Sleep Lab Work Phone: Start: 07-17-2024 End: 07-17-2024 ambulatory [facility] Facility:[facility] Start: 07-07-2024 End: 07-07-[address] Marycarmen Rodriguez DO Work Phone: [facility] Work Phone: Start: 07-07-2024 End: 07-07-2024 Patient encounter procedure Marni POOL -Sleep Lab Work Phone: Start: 07-07-2024 End: 07-07-2024 ambulatory [facility] Facility:[facility] Start: 07-03-2024 End: 07-03-2024 Patient encounter procedure Marni POOL -[facility] Work Phone: Start: 07-03-2024 End: 07-03-2024 ambulatory [facility] Facility:[facility] Start: 06-30-2024 End: 06-30-[address] Marycarmen Rodriguez DO Work Phone: [facility] Work Phone: Start: 06-30-2024 End: 06-30-[address] Marycarmen Rodriguez DO -Laboratory, [facility] Start: 06-30-2024 End: 06-30-2024 ambulatory [facility] Facility:[facility] Start: 04-17-2024 End: 04-17-2024 Patient encounter procedure Gustabo POOL -[facility] Work Phone: Start: 04-17-2024 End: 04-17-2024 ambulatory [facility] Facility:[facility] Start: 04-17-2024 End: 04-17-2024 ambulatory [facility] Facility:[facility] Start: 03-27-2024 End: 03-27-[address] Jose Hay MD -[facility] Work Phone: Start: 03-27-2024 End: 03-27-2024 ambulatory [facility] Facility:[facility] Start: 03-23-2024 End: 03-23-[address] Marycarmen Rodriguez [facility] Start: 03-23-2024 End: 03-23-2024 ambulatory [facility] Facility:[facility] Start: 03-20-2024 End: 03-20-[address] Jose Hay MD -[facility] Work Phone: Start: 03-20-2024 End: 03-20-2024 ambulatory Jose Jose Armando Facility:[facility] Start: 05-07-2023 End: 05-07-2023 ambulatory [facility] Work Phone: Start: 05-07-2023 End: 05-07-2023 Patient encounter procedure [facility]-Ritesh Martini [facility] Start: 12-29-2022 Non-patient / Non-visit Dr. Ap Rodriguez Work Phone: [facility] Work Phone: Start: 12-28-2022 Non-patient / Non-visit Dr. Ap Rodriguez Work Phone: [facility] Start: 12-28-2022 End: 12-28-[address] Marycarmen Rodriguez Work Phone: [facility] Work Phone: Start: 12-28-2022 End: 12-28-[address] Marycarmen Rodriguez Work Phone: [facility]-Cardiovascul ar Services Work Phone: Start: 12-21-2022 End: 12-21-2022 Admission to same day surgery center Dr. Marycarmen Rodriguez Work Phone: [facility]-Packager/Special Procedures Work Phone: Start: 12-21-2022 End: 12-21-[address] Marycarmen Rodriguez Work Phone: [facility] Work Phone: Start: 12-15-2022 End: 12-15-[address] Marycarmen Rodriguez Work Phone: [facility] Work Phone: Start: 12-15-2022 End: 12-15-[address] Marycarmen Rodriguez Work Phone: [facility]-Laboratory Work Phone: Start: 12-15-2022 End: 12-15-[address] Marycarmen Rodriguez Work Phone: [facility] Work Phone: Start: 10-16-2022 End: 10-16-2022 ambulatory Marycarmen SWAIN [facility] Work Phone: Start: 10-16-2022 End: 10-16-2022 Patient encounter procedure Marycarmen SWAIN [facility]-Pulmonary Services/Neurology Start: 10-13-2022 End: 10-13-2022 ambulatory Marycarmen SWAIN [facility] Work Phone: Start: 10-13-2022 End: 10-13-2022 Patient encounter procedure Marycarmen SWAIN [facility] Start: 09-21-2022 Non-patient / Non-visit Marycarmen gifford [facility] Start: 09-20-2022 Non-patient / Non-visit Marycarmen gifford [facility] Start: 09-19-2022 Non-patient / Non-visit Marycarmen gifford [facility] Start: 09-18-2022 Non-patient / Non-visit Marycarmen gifford [facility] Start: 09-17-2022 End: 09-17-2022 Non-patient / Non-visit Marycarmen SWAIN [facility] Start: 09-17-2022 End: 09-21-2022 Evaluation and management of inpatient Marycarmen SWAIN [facility] Start: 09-09-2022 Non-patient / Non-visit Marycarmen gifford [facility] Start: 09-01-2022 Non-patient / Non-visit Marycarmen gifford [facility] Start: 08-31-2022 End: 08-31-2022 Non-patient / Non-visit Marycarmen Rodriguez [facility] Start: 08-31-2022 Non-patient / Non-visit Marycarmen gifford [facility] Start: 08-31-2022 End: 09-01-2022 Evaluation and management of inpatient Marycarmen Rodriguez [facility] Care Unit Start: 08-31-2022 End: 09-01-2022 observation encounter Marycarmen Rodriguez [facility] Work Phone: Start: 08-19-2022 End: 08-19-2022 ambulatory Marycarmen Rodriguez [facility] Work Phone: Start: 08-19-2022 End: 08-19-2022 Patient encounter procedure Marycarmen Rodriguez [facility] Start: 08-11-2022 Non-patient / Non-visit Marycarmen gifford [facility] Start: 06-11-2022 End: 06-11-[address] Marycarmen Rodriguez Work Phone: [facility] Work Phone: Start: 06-11-2022 End: 06-11-[address] Marycarmen Rodriguez Work Phone: [facility] Start: 04-21-2022 Non-patient / Non-visit Dr. Ap Rodriguez Work Phone: [facility] Start: 04-21-2022 End: 04-21-[address] Marycarmen Rodriguez Work Phone: [facility] Work Phone: Start: 04-21-2022 End: 04-21-[address] Marycarmen Rodriguez Work Phone: [facility]-Cardiovascul ar Services Start: 04-16-2022 End: 04-16-[address] Marycarmen Rodriguez [facility] Start: 04-14-2022 End: 04-14-[address] Marycarmen Rodriguez Work Phone: [facility] Work Phone: Start: 04-14-2022 End: 04-14-[address] Marycarmen Rodriguez Work Phone: [facility] Start: 04-14-2022 End: 04-14-[address] Marycarmen Rodriguez Work Phone: [facility] Start: 03-27-2022 End: 03-27-[address] Marycarmen Rodriguze Work Phone: [facility] Start: 01-20-2022 End: 01-20-[address] Marycarmen Rodriguez Work Phone: [facility], [facility] Start: 01-07-2022 End: 01-07-[address] Marycarmen Rodriguez Work Phone: [facility] Start: 11-27-2021 Non-patient / Non-visit Dr. Ap Rodriguez Work Phone: [facility] Start: 11-26-2021 End: 11-26-[address] Marycarmen Rodriguez Work Phone: [facility]-Pulmonary Services/Neurology Start: 11-21-2021 End: 11-21-[address] Marycarmen Rodriguez Work Phone: [facility] Start: 11-16-2021 End: 11-16-2021 Emergency department patient visit Dr. Marycarmen Rodriguez Work Phone: [facility]-Emergency Department Start: 10-28-2021 End: 10-28-[address] Marycarmen Rodriguez Work Phone: [facility] Start: 09-16-2021 End: 09-16-[address] Marycarmen Rodriguez Work Phone: [facility] Start: 09-16-2021 End: 09-16-[address] Marycarmen Rodriguez Work Phone: [facility] Start: 08-15-2021 Non-patient / Non-visit Dr. Ap Rodriguez Work Phone: [facility] Start: 08-15-2021 Non-patient / Non-visit Dr. Ap Rodriguez Work Phone: [facility] Start: 08-15-2021 End: 08-15-[address] Marycarmen Rodriguez Work Phone: [facility] Start: 08-01-2021 End: 08-01-[address] Marycarmen Rodriguez Work Phone: [facility] Start: 06-10-2021 End: 06-10-2021 Emergency department patient visit Dr. Marycarmen Rodriguez Work Phone: [facility]-Emergency Department Start: 05-19-2021 End: 05-19-2021 Emergency department patient visit Dr. Marycarmen Rodriguez Work Phone: [facility]-Emergency Department Start: 05-16-2021 End: 05-16-[address] 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) (Primary Dx) Start: 12-31-2020 Admission to [facility] Eladio Ingram MD Work Phone: [facility] Comment on above: Chest pain, unspecif ied type (Primary Dx) Start: 12-26-2020 End: 12-30-2020 Orders Only Justa Euceda RN [facility] Start: 12-26-2020 End: 12-26-2020 Office outpatient visit 25 minutes Marycarmen Rodriguez DO Work Phone: [facility] Comment on above: Essential hypertensi on (Primary Dx); 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, unspecified whether cachil dehe or transplanted heart (HCC); 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); Mixed hyperlipidemia Start: 12-18-2020 ambulatory MIN Lux y:[facility] Start: 10-15-2020 End: 10-16-2020 ambulatory [facility] Start: 10-15-2020 End: 10-15-2020 Subsequent hospital visit by physician Eladio Ingram MD Work Phone: [facility] Comment on above: Arrived Start: 10-10-2020 ambulatory FERNANDA AYALANN ANAJENNIFER [facility] Ambulatory Start: 10-09-2020 End: 10-09-2020 Orders Only Fernanda Declan Anajennifer MAINTENANCE ADVISOR Work Phone: [facility] Office Comment on above: DEAN (dyspnea on exer tion) (Primary Dx) Start: 10-09-2020 End: 10-09-2020 Office outpatient new 45 minutes Fernanda Declan Acuña MAINTENANCE ADVISOR Work Phone: [facility] Comment on above: DEAN (dyspnea on exer tion); Essential hypertension; Type 2 diabetes mellitus without complication, without long-term current use of insulin (HCC); MATTHEW (obstructive sleep apnea); Coronary artery disease involving cachil dehe coronary artery of cachil dehe heart without angina pectoris Start: 10-04-2020 End: 10-04-2020 Orders Only Deisi March RN [facility] Comment on above: Shortness of breath (Primary Dx) Start: 12-17-2016 Office/outpatient vi sit, est, level 4 Eladio Ingrma Work Phone: [facility] Start: 11-28-2016 End: 11-28-2016 Patient encounter procedure [facility] Procedures Date Procedure Procedure Detail Performing [...] Start: 12-07-2024 Platelet mean volume determination Dr. aMrycarmen Rodriguez DO Work Phone: Start: 12-07-2024 Total [...] Work Phone: Comment on above: Test Ordered: [id number] Screen, Urine Negative ng/mL UI Reference Range: Hmyfmx=749Gzmafqulvpz test includes Amphetamine and Methamphetamine.Barbiturates Negative ng/mL UI Reference Range: Qxcwmb=977Zwtnuyfcqeorrrg Negative ng/mL UI Reference Range: Scryft=385Sxjbzzp (Metab.), Urine Negative ng/mL UI Reference Range: Pxsvsx=683Xnvjhcw Note: ng/mL UI See Final Results Reference Range: Chjuaz=324Fotuvj test includes Codeine, Morphine, Hydromorphone, Hydrocodone.Opiates Positive [A ] UI Reference Range: Rwgqnv=650Iygbtf test includes Codeine, Morphine, Hydromorphone, Hydrocodone.Codeine Negative UI Reference Range: Blgixe=549Yxbzlnit Negative UI Reference Range: Jjapkt=366Cxdgfymgpvook Negative UI Reference Range: Rvvdfr=928Tdphhcvjrxh Positive [A ] UI Reference Range: .Hydrocodone Conf, MS, UR 349 ng/mL UI Reference Range: Nyginq=4390-Ygajmknykzigqx, Urine Negative ng/mL UI Reference Range: Cutoff=10Oxycodone/Oxymorphone, Urine Negative ng/mL UI Reference Range: Dvqhau=627Gpji includes Oxycodone and OxymorphonePCP, Urine Negative ng/mL UI Reference Range: Cutoff=25Methadone Screen, Urine Negative ng/mL UI Reference Range: Gfpnlw=429Xhgopluafnyr, Urine Negative ng/mL UI Reference Range: Wpbxqd=742Ggkvsess, Urine Negative ng/mL UI Reference Range: Cutoff=2.0Test includes Fentanyl and NorfentanylThis test was developed and its performance characteristicsdetermined by [employer]. It has not been cleared orapproved by the Food and Drug Administration.Tramadol Negative ng/mL UI Reference Range: Kfioxp=222Fugzosvuxewit, Urine Negative ng/mL UI Reference Range: Cutoff=10Creatinine, Urine 36.9 mg/dL UI Reference Range: 20.0-300.0pH, Urine 6.1 UI Reference Range: 4.5-8.9Performed at: [facility] [id number] [place], [place] [id number] Director: Erik Wallis PhD, Phone: [phone] at: [address] [id number] Director: Bharath Hawthorne PhD, Phone: [phone] Start: 10-18-[address] Marycarmen Rodriguez DO Work Phone: Start: 10-18-[address] Marycarmen Rodriguez DO Work Phone: Start: 09-29-2024 Blood count smear mc rscp w/mnl difrntl wbc count Dr. Marycarmne Rodriguez DO Work Phone: Start: 09-29-2024 Mean [...] red blood cell count procedure Dr. Marycarmen Rodirguez DO Work Phone: Start: 09-20-2024 Platelet mean volume determination Dr. Marycarmen Rodriguez DO Work Phone: Start: 09-21-2022 Viral antigen assay Matilda Rodriguez BRYNN Start: 09-19-2022 CT of head without contrast [...] w/le ast 12 lds w/i&r Fernanda Acuña MAINTENANCE ADVISOR Work Phone: Start: 08-18-2018 History of percutane ous transluminal coronary angioplasty History of percutaneous transluminal coronary angioplasty Dr. 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 Alexandr Mcclain Start: 08-13-2017 History of placement of stent for coronary artery disease History of coronary artery stent placement Dr. 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 Procedure aborted. 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 Start: 12-15-2024 Incentive spirometry [facility] Start: 12-15-2024 Insertion of catheter into peripheral vein [facility] Start: 12-15-2024 Measuring intake and output [facility] Start: 12-15-2024 Notification of physician [facility] Start: 12-15-2024 Providing care according to standard [facility] Start: 12-15-2024 Provision of activity privileges [facility] Start: 12-15-2024 Referral to reel blade bender furnace tender [facility] Start: 12-15-2024 Referral to occupational therapist [facility] Start: 12-15-2024 Referral to service [facility] Start: 12-15-2024 Tobacco use cessation education [facility] Start: 12-15-2024 End: 12-15-2024 [facility] Start: 12-15-2024 Following clinical pathway protocol [facility] Start: 12-15-2024 Admission procedure [facility] Start: 12-15-2024 [facility] Start: 12-15-2024 Patient referral to dietitian [facility] Start: 12-08-2024 Patient discharge [facility] Start: 12-07-2024 Following clinical pathway protocol [facility] Start: 12-07-2024 Assessment of risk of venous thromboembolism [facility] Start: 12-07-2024 Care regimes management [facility] Start: 12-07-2024 Inhalation therapy procedure [facility] Start: 12-07-2024 Insertion of catheter into peripheral vein [facility] Start: 12-07-2024 Measuring intake and output [facility] Start: 12-07-2024 Notification of physician [facility] Start: 12-07-2024 Providing care according to standard [facility] Start: 12-07-2024 Provision of activity privileges [facility] Start: 12-07-2024 Referral to occupational therapist [facility] Start: 12-07-2024 Referral to service [facility] Start: 12-07-2024 End: 12-07-2024 [facility] Start: 12-07-2024 Pulmonary perfusion study [facility] Start: 12-07-2024 Verification routine [facility] Start: 12-07-2024 Admission procedure [facility] Start: 12-07-2024 Hospital admission, emergency, from emergency room, medical nature [facility] Start: 12-07-2024 [facility] Start: 12-07-2024 [facility] Start: 12-07-2024 Dual pressure spontaneous ventilation support [facility] Start: 12-06-2024 Patient discharge [facility] Start: 12-05-2024 Referral to occupational therapist [facility] Start: 12-05-2024 Referral to service [facility] Start: 12-03-2024 Electrocardiographic procedure [facility] Start: 12-03-2024 Referral to reel blade bender furnace tender [facility] Start: 12-03-2024 Verification routine [facility] Start: 12-03-2024 Admission procedure [facility] Start: 12-02-2024 End: 12-02-2024 [facility] Start: 12-02-2024 Following clinical pathway protocol [facility] Start: 12-02-2024 Notification of physician [facility] Start: 12-02-2024 Patient education [facility] Start: 12-02-2024 Provision of activity privileges [facility] Start: 12-02-2024 Pulse taking [facility] Start: 12-02-2024 Taking patient vital signs [facility] Start: 12-02-2024 Wound care [facility] Start: 12-02-2024 Oxygen therapy [facility] Start: 12-02-2024 Dual pressure spontaneous ventilation support [facility] Start: 12-02-2024 End: 12-02-2024 Hospital admission, emergency, from emergency room, medical nature [facility] Start: 12-02-2024 [facility] Start: 12-02-2024 Patient discharge [facility] Start: 12-02-2024 Electrocardiographic procedure [facility] Start: 12-02-2024 Magnetic resonance angiography of head without contrast [facility] Start: 12-02-2024 Magnetic resonance angiography of neck without contrast [facility] Start: 12-02-2024 MRA Head vessels WO contrast [facility] Start: 12-02-2024 MRA Neck vessels WO contrast [facility] Start: 12-01-2024 Vital signs measurements [facility] Start: 12-01-2024 Aspiration precautions [facility] Start: 12-01-2024 Cardiac monitoring [facility] Start: 12-01-2024 Catheterization of vein [facility] Start: 12-01-2024 Consultation [facility] Start: 12-01-2024 Continuous pulse oximetry [facility] Start: 12-01-2024 Elevation of head of bed [facility] Start: 12-01-2024 Exercises [facility] Start: 12-01-2024 Notification of physician [facility] Start: 12-01-2024 Oxygen therapy [facility] Start: 12-01-2024 Patient referral to dietitian [facility] Start: 12-01-2024 Referral to occupational therapist [facility] Start: 12-01-2024 Referral to service [facility] Start: 12-01-2024 Speech therapy assessment [facility] Start: 12-01-2024 Telemedicine consultation with patient [facility] Start: 12-01-2024 Tobacco use cessation education [facility] Start: 12-01-2024 End: 12-01-2024 [facility] Start: 12-01-2024 [facility] Start: 12-01-2024 [facility] Start: 12-01-2024 Electrocardiographic procedure [facility] Start: 12-01-2024 Continuous positive airway pressure ventilation treatment [facility] Start: 12-01-2024 US Heart [facility] Start: 12-01-2024 Complete blood count [facility] Start: 11-30-2024 End: 11-30-2024 [facility] Start: 11-30-2024 Following clinical pathway protocol [facility] Start: 11-30-2024 Ambulation without limitation [facility] Start: 11-30-2024 Assessment of risk of venous thromboembolism [facility] Start: 11-30-2024 Insertion of catheter into peripheral vein [facility] Start: 11-30-2024 Measuring intake and output [facility] Start: 11-30-2024 Providing care according to standard [facility] Start: 11-30-2024 Referral to service [facility] Start: 11-30-2024 Care regimes management [facility] Start: 11-30-2024 Complete blood count [facility] Start: 11-30-2024 Elevation of head of bed [facility] Start: 11-30-2024 Admission procedure [facility] Start: 11-30-2024 Cardiac monitoring [facility] Start: 11-30-2024 Cardiac rehabilitation - phase 1 [facility] Start: 11-30-2024 Cardiac rehabilitation - phase 2 [facility] Start: 11-30-2024 Dietary regime [facility] Start: 11-30-2024 Log roll [facility] Start: 11-30-2024 End: 11-30-2024 Notification of physician [facility] Start: 11-30-2024 Oxygen therapy [facility] Start: 11-30-2024 Patient discharge [facility] Start: 11-30-2024 Provision of activity privileges [facility] Start: 11-30-2024 Pulse taking [facility] Start: 11-30-2024 Hospital admission, emergency, from emergency room, medical nature [facility] Start: 11-30-2024 Electrocardiographic procedure [facility] Start: 11-30-2024 End: 11-30-2024 [facility] Start: 11-30-2024 Partial thromboplastin time, activated [facility] Start: 11-30-2024 Prothrombin time [facility] Start: 11-28-2024 [facility] Start: 11-28-2024 Patient discharge [facility] Start: 11-28-2024 Complete blood count [facility] Start: 11-27-2024 Following clinical pathway protocol [facility] Start: 11-27-2024 Elevation of head of bed [facility] Start: 11-27-2024 Dietary regime [facility] Start: 11-27-2024 Log roll [facility] Start: 11-27-2024 Provision of activity privileges [facility] Start: 11-27-2024 End: 11-27-2024 [facility] Start: 11-27-2024 Admission procedure [facility] Start: 11-27-2024 Cardiac monitoring [facility] Start: 11-27-2024 Cardiac rehabilitation - phase 1 [facility] Start: 11-27-2024 Cardiac rehabilitation - phase 2 [facility] Start: 11-27-2024 Notification of physician [facility] Start: 11-27-2024 Oxygen therapy [facility] Start: 11-27-2024 Pulse taking [facility] Start: 11-27-2024 Continuous positive airway pressure ventilation treatment [facility] Start: 11-27-2024 Inhalation therapy procedure [facility] Start: 11-26-2024 [facility] Start: 11-26-2024 [facility] Start: 11-22-2024 Evaluation of diagnostic study results [facility] Start: 06-25-2025 Evaluation of diagnostic study results [facility] Start: 07-25-2024 Walking distance 6 minutes [facility] Start: 07-17-2024 Measurement of respiratory function [facility] Start: 12-21-2022 Patient discharge [facility] Start: 10-05-2022 Measurement of respiratory function [facility] Start: 09-21-2022 Patient discharge [facility] Start: 09-20-2022 Telepractice consultation [facility] Start: 09-18-2022 Following clinical pathway protocol [facility] Start: 09-17-2022 Aspiration precautions [facility] Start: 09-17-2022 Assessment of risk of venous thromboembolism [facility] Start: 09-17-2022 Cardiac monitoring [facility] Start: 09-17-2022 Care regimes management [facility] Start: 09-17-2022 Catheterization of vein [facility] Start: 09-17-2022 Continuous positive airway pressure ventilation treatment [facility] Start: 09-17-2022 Continuous pulse oximetry [facility] Start: 09-17-2022 Elevation of head of bed [facility] Start: 09-17-2022 Exercises [facility] Start: 09-17-2022 Fall prevention [facility] Start: 09-17-2022 Implementation of planned interventions [facility] Start: 09-17-2022 Inhalation therapy procedure [facility] Start: 09-17-2022 Insertion of catheter into peripheral vein [facility] Start: 09-17-2022 Introduction of urinary catheter [facility] Start: 09-17-2022 Measuring intake and output [facility] Start: 09-17-2022 Notification of physician [facility] Start: 09-17-2022 Oxygen therapy [facility] Start: 09-17-2022 End: 09-18-2022 Patient referral to dietitian [facility] Start: 09-17-2022 Providing care according to standard [facility] Start: 09-17-2022 Provision of activity privileges [facility] Start: 09-17-2022 Referral to occupational therapist [facility] Start: 09-17-2022 Referral to service [facility] Start: 09-17-2022 Speech therapy assessment [facility] Start: 09-17-2022 Tobacco use cessation education [facility] Start: 09-17-2022 [facility] Start: 09-17-2022 Admission procedure [facility] Start: 09-01-2022 Patient discharge [facility] Start: 08-31-2022 Patient referral [facility] Work Phone: Start: 08-31-2022 Following clinical pathway protocol [facility] Start: 08-31-2022 Pulse taking [facility] Start: 08-31-2022 Cardiac monitoring [facility] Start: 08-31-2022 Cardiac rehabilitation - phase 1 [facility] Start: 08-31-2022 Cardiac rehabilitation - phase 2 [facility] Start: 08-31-2022 Notification of physician [facility] Start: 08-31-2022 Oxygen therapy [facility] Start: 08-31-2022 Patient discharge [facility] Start: 08-31-2022 Taking patient vital signs [facility] Start: 08-31-2022 Vascular disease risk assessment [facility] Start: 08-31-2022 Vital signs measurements [facility] Start: 08-31-2022 End: 08-31-2022 [facility] Start: 08-31-2022 Admission procedure [facility] Start: 11-16-2021 [facility] Work Phone: Start: 01-10-2021 End: 01-10-2021 Admission to same day surgery center 01/10/2021 Surgery Cardiology Eladio Ingram MD [address] [facility] [address] [place] [address] Left Heart Cath Possible PTCA/Stent [facility] Packager Comment on above: Left Heart Cath Possible PTCA/Stent Start: 01-10-2021 Subsequent hospital visit by physician 01/10/2021 Hospital Encounter Eladio Ingram MD [address] [facility] [address] [place] [address] [facility] Start: 01-01-2021 Influenza vaccination [facility] Start: 12-26-2020 End: 12-26-2020 Patient encounter procedure 12/26/2020 Office Visit Cardiology Marycarmen Rodriguez, DO [address] [place] [address] [phone] Eladio Ingram MD [address] [facility] [address] [place] [address] [phone] [facility] Start: 10-15-2020 End: 10-15-2020 Patient encounter procedure 10/15/2020 Appointment Cardiology Eladio Ingram MD [address] [facility] [address] [place] [address] [phone] [facility] Start: 10-09-2020 End: 10-09-2020 Patient encounter procedure 10/09/2020 Office Visit Cardiology Fernanda Acuña, MAINTENANCE ADVISOR [address] [place] [address] [phone] [facility] Start: 11-05-2017 Prostate specific antigen measurement PSA Level [facility] Start: 06-01-2017 HEMOGLOBIN A1C HEMOGLOBIN A1C [facility] Work Phone: Start: 06-01-2017 Hemoglobin A1c measurement A1C [facility] Start: 06-01-2017 Hemoglobin A1c/Hemoglobin.total mass fraction (Bld) HEMOGLOBIN A1C [facility] Work Phone: Start: 01-01-2017 SEQUENTIAL INFLUENZA VACCINE (#1) SEQUENTIAL INFLUENZA VACCINE (#1) [facility] Work Phone: Start: 12-17-2016 Ambulatory 12/17/2016 Office Visit Cardiology Eladio Ingram MD [address] [facility] [address] [place] [address] [phone] [facility] Start: 2010 ABDOMINAL AORTIC ULTRASOUND ABDOMINAL AORTIC ULTRASOUND [facility] Work Phone: Start: 2010 Fall risk assessment Falls Risk Assessment [facility] Start: 2010 PNEUMOCOCCAL VACCINE AGE 65+ (1 of 2 - PCV13) PNEUMOCOCCAL VACCINE AGE 65+ (1 of 2 - PCV13) [facility] Work Phone: Start: 2005 Zoster vacc, sc ZOSTER VACCINE [facility] Work Phone: Start: 08-01-1995 Administration of herpes zoster vaccine Zoster Vaccines (1 of 2) [facility] Start: 08-01-1995 Screening for malignant neoplasm of colon [facility] Start: 08-01-1963 Hepatitis C screening Hepatitis C Screening [facility] Start: 1957 COVID-19 Vaccine (1) COVID-19 Vaccine (1) [facility] Start: 08-01-1955 3 comp foot exam completed FOOT EXAM [facility] Work Phone: Start: 08-01-1955 Albumin Test strip detection limit <= 20 mg/L mass conc (U) URINE MICROALBUMIN [facility] Work Phone: Start: 08-01-1955 Diabetic foot examination Foot Exam [facility] Start: 08-01-1955 Microalbumin measurement, urine, quantitative Urine Microalbumin [facility] Start: 08-01-1955 Ophthalmic examination and evaluation OPHTHALMOLOGY EXAM [facility] Start: 08-01-1955 FOOT EXAM FOOT EXAM [facility] Work Phone: Start: 08-01-1955 OPHTHALMOLOGY EXAM OPHTHALMOLOGY EXAM [facility] Work Phone: Start: 08-01-1955 URINE MICROALBUMIN URINE MICROALBUMIN [facility] Work Phone: Start: 08-01-1951 Pneumococcal Vaccine: Age 65+ (1 of 2 - PPSV23) Pneumococcal Vaccine: Age 65+ (1 of 2 - PPSV23) [facility] Start: 1948 History and physical examination, annual for health maintenance Wellness Visit [facility] Start: 1945 Colonoscopy COLONOSCOPY [facility] Work Phone: Start: 1945 Tetanus vaccination Tetanus: Every 10yrs [facility] Start: 1945 Colonoscopy COLONOSCOPY [facility] Work Phone: Start: 1945 End: 1945 HEPATITIS C SCREENING HEPATITIS C SCREENING [facility] Work Phone: Start: 1945 End: 1945 TETANUS EVERY 10 YR TETANUS EVERY 10 YR [facility] Work Phone: Alanine aminotransfe rase [Enzymatic activity/volume] in Serum or Plasma [facility] Alanine aminotransfe rase [Enzymatic activity/volume] in Serum or Plasma [facility] Albumin [Mass/volume ] in Serum or Plasma [facility] Albumin [Mass/volume ] in Serum or Plasma [facility] Alkaline phosphatase [Enzymatic activity/volume] in Serum or Plasma [facility] Alkaline phosphatase [Enzymatic activity/volume] in Serum or Plasma [facility] Anion gap in Serum or Plasma [facility] Anion gap in Serum or Plasma [facility] End: 12-26-2021 Basic metabolic 2000 panel - Serum or Plasma Basic metabolic panel Lab Routine 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, unspecified whether cachil dehe or transplanted heart (HCC) Essential hypertension 1 Occurrences starting 12/26/2020 until 12/26/2021 [facility] Comment on above: 1 Occurrences starting 12/26/2020 until 12/26/2021 Basic metabolic 2000 panel - Serum or Plasma Basic metabolic panel Lab Routine 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, unspecified whether cachil dehe or transplanted heart (HCC) Essential hypertension 12/26/2020 11:28 AM EDT [facility] Basic metabolic 2007 panel with ionized calcium - Serum or Plasma [facility] Basic metabolic 2007 panel with ionized calcium - Serum or Plasma [facility] Basic metabolic 2007 panel with ionized calcium - Serum or Plasma [facility] End: 12-17-2017 Basic metabolic panel [AGGREGATE] Basic metabolic panel Routine MATTHEW (obstructive sleep apnea) Coronary artery disease involving cachil dehe coronary artery of cachil dehe heart without angina pectoris 1 Occurrences starting 12/17/2016 until 12/17/2017 [facility] Work Phone: Bilirubin, total measurement [facility] Bilirubin, total measurement [facility] Blood chemistry [facility] BUN/Creatinine ratio [facility] BUN/Creatinine ratio [facility] Calcium [Mass/volume ] in Serum or Plasma [facility] Calcium [Mass/volume ] in Serum or Plasma [facility] Carbon dioxide, tota l [Moles/volume] in [place] venous blood [facility] Carbon dioxide, tota l [Moles/volume] in Central venous blood [facility] Catheterization of l t heart [facility] CBC W Auto Different ial panel - Blood [facility] CBC W Auto Different ial panel - Blood [facility] End: 12-26-2021 Complete blood count with white cell differential, manual CBC and differential Lab Routine 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, unspecified whether c[place] de[place] or transplanted heart (HCC) Essential hypertension 1 Occurrences starting 12/26/2020 until 12/26/2021 [facility] Work Phone: Comment on above: 1 Occurrences starting 12/26/2020 until 12/26/2021 Complete blood count with white cell differential, manual CBC and differential Lab Routine 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, unspecified whether c[place] dehe or transplanted heart (HCC) Essential hypertension 12/26/2020 11:28 AM EDT [facility] Creatinine [Mass/vol ume] in Serum or Plasma [facility] Creatinine [Mass/vol ume] in Serum or Plasma [facility] End: 01-10-2022 CT Angiogram Aorta Chest Abdomen Pelvis CT Angiogram Aorta Chest Abdomen Pelvis Imaging Routine 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) 1 Occurrences starting 01/10/2021 until 01/10/2022 [facility] Work Phone: Comment on above: 1 Occurrences starting 01/10/2021 until 01/10/2022 End: 12-04-2021 Echocardiography Echocardiogram complete Echocardiography Routine Shortness of breath 1 Occurrences starting 10/04/2020 until 12/04/2021 [facility] Comment on above: 1 Occurrences starting 10/04/2020 until 12/04/2021 Erythrocyte mean cor puscular volume determination [facility] Erythrocyte mean cor puscular volume determination [facility] Erythrocyte mean cor puscular volume determination [facility] Glucose [Mass/volume ] in Serum or Plasma [facility] Glucose [Mass/volume ] in Serum or Plasma [facility] Hematocrit [Volume F raction] of Blood [facility] Hematocrit [Volume F raction] of Blood [facility] Hematocrit [Volume F raction] of Blood [facility] Hemoglobin [Mass/vol ume] in Blood [facility] Hemoglobin [Mass/vol ume] in Blood [facility] Hemoglobin [Mass/vol ume] in Blood [facility] INR in Blood by Coag ulation assay [facility] LEFT HEART CATH POSS IBLE PTCA/STENT LEFT HEART CATH POSSIBLE PTCA/STENT [facility] Leukocytes [#/volume ] in Blood [facility] Leukocytes [#/volume ] in Blood [facility] Leukocytes [#/volume ] in Blood [facility] End: 12-17-2017 Magnesium Magnesium Routine MATTHEW (obstructive sleep apnea) Coronary artery disease involving cachil dehe coronary artery of [place] de[place] heart without angina pectoris 1 Occurrences starting 12/17/2016 until 12/17/2017 [facility] Work Phone: Mean corpuscular hem oglobin concentration determination [facility] Mean corpuscular hem oglobin concentration determination [facility] Mean corpuscular hem oglobin concentration determination [facility] Mean corpuscular hem oglobin determination [facility] Mean corpuscular hem oglobin determination [facility] Mean corpuscular hem oglobin determination [facility] Measurement of renal function [facility] Measurement of renal function [facility] Measurement of respi ratory function [facility] Work Phone: Natriuretic peptide. B prohormone N-Terminal [Mass/volume] in Serum or Plasma [facility] Natriuretic peptide. B prohormone N-Terminal [Mass/volume] in Serum or Plasma [facility] NM Heart Views W str ess and W radionuclide IV [facility] Patient Education [facility] Work Phone: Patient referral [facility] Work Phone: Platelets [#/volume] in Blood [facility] Platelets [#/volume] in Blood [facility] Platelets [#/volume] in Blood [facility] Potassium measurement [facility] Potassium measurement [facility] Red blood cell count [facility] Red blood cell count [facility] Red blood cell count [facility] Red cell distributio n width determination [facility] Red cell distributio n width determination [facility] Red cell distributio n width determination [facility] Serum chloride measurement [facility] Serum chloride measurement [facility] Sodium measurement [facility] Sodium measurement [facility] Total protein measurement [facility] Total protein measurement [facility] Troponin T.cardiac [Mass/volume] in Serum or Plasma by High sensitivity method [facility] Troponin T.cardiac [Mass/volume] in Serum or Plasma by High sensitivity method [facility] Troponin T.cardiac [Mass/volume] in Serum or Plasma by High sensitivity method [facility] Troponin T.cardiac [Mass/volume] in Serum or Plasma by High sensitivity method [facility] Troponin T.cardiac [Mass/volume] in Serum or Plasma by High sensitivity method [facility] Troponin T.cardiac [Mass/volume] in Serum or Plasma by High sensitivity method [facility] Urea nitrogen [Mass/ volume] in Serum or Plasma [facility] Urea nitrogen [Mass/ volume] in Serum or Plasma [facility] and [place] [facility]izations Immunization Date Immunization Notes Care Provider [facility] 11-26-2024 tetanus toxoid, redu terry diphtheria toxoid, and acellular pertussis vaccine, adsorbed Dr. Marycarmen Rodriguez DO Work Phone: [facility] 02-19-2023 influenza, injectabl e, quadrivalent, preservative free Dr. Marycarmen Rodriguez DO Work Phone: [facility] 01-27-2022 influenza, injectabl e, quadrivalent, preservative free Dr. Marycarmen Rodriguez DO Work Phone: [facility] 09-04-2021 Covid (Pfizer) Dr. Marycarmen hough DO Work Phone: [facility] 02-24-2021 Covid (Pfizer) Dr. Marycarmen hough DO Work Phone: [facility] 06-27-2020 Covid (Pfizer) Dr. Marycarmen hough DO Work Phone: [facility] 05-31-2020 Covid (Pfizer) Dr. Marycarmen hough DO Work Phone: [facility] 02-20-[address] Marycarmen Rodriguez Work Phone: [facility] 02-14-[address] Marycarmen Rodriguez Work Phone: [facility] 01-31-[address] Marycarmen Rodriguez Work Phone: [facility] 04-12-2017 influenza, high dose seasonal, preservative-free Dr. Marycarmen Rodriguez DO Work Phone: [facility] 11-29-2016 HEMOGLOBIN A1C [facility] Work Phone: 08-16-2014 pneumococcal polysaccharide vaccine, [address] Marycarmen Rodriguez DO Work Phone: [facility] 08-05-2005 hepatitis A vaccine, pediatric/adolescent dosage, [address] Marycarmen Rodriguez DO Work Phone: [facility] 01-14-2005 hepatitis A vaccine, pediatric/adolescent dosage, [address] Marycarmen Rodriguez DO Work Phone: [facility] 01-14-2005 TD(adult) unspecifie d formulation Dr. Marycarmen Rodriguez DO Work Phone: [facility] Payers Date Payer Category Payer Self-pay [id number] 2019 Unknown [id number] 1. [id number] 2019 Unknown [id number] 2012 Unknown [id number] 2.1 6.840.1.481375.3.249.13 2010 Medicare [id number] 2.16 .840.1.484329.3.249.13 2010 Medicare [id number] 1.2 .840.154429.1.13.385.2.7.3.540377.315 2010 Medicare [id number] 2010 Medicare [id number] 1945 Unknown [id number] 2.16. 840.1.165365.3.579.2.594 1945 Unknown [id number] 2.16. 840.1.752226.3.579.2.902 1945 Unknown [id number] 2.16. 840.1.521915.3.579.2.903 1945 Unknown [id number] 2.16 840.1.830437.3.579.2.903 1945 Unknown [id number] 2.16. 840.1.615603.3.579.2.903 1945 Unknown [id number] 2.16. 840.1.957091.3.579.2.903 1945 Unknown [id number] 2.16. 840.1.869993.3.579.2.903 1945 Unknown [id number] 2.16. 840.1.280420.3.579.2.903 1945 Unknown [id number] 2.16. 840.1.014687.3.579.2.903 1945 Unknown [id number] 2.16. 840.1.369249.3.579.2.903 Unknown [id number] 2.16.8 40.1.011714.3.579.2.462 Unknown [id number] 2.16.8 40.1.836590.3.579.2.462 Unknown [id number] 2.16.8 40.1.875020.3.579.2.462 Unknown [id number] 2.16.8 40.1.164691.3.579.2.462 Unknown [id number] 2.16.8 40.1.461298.3.579.2.462 Unknown [id number] 2.16.8 40.1.031939.3.579.2.462 Unknown [id number] 2.16.8 40.1.754913.3.579.2.462 Unknown [id number] 2.16.8 40.1.494151.3.579.2.462 Unknown [id number] 2.16.8 40.1.121621.3.579.2.462 Unknown [id number] 2.16.8 40.1.521761.3.579.2.462 Unknown [id number] 2.16.8 40.1.491821.3.579.2.462 Unknown [id number] 2.16.8 40.1.353113.3.579.2.462 Unknown [id number] 2.16.8 40.1.572024.3.579.2.462 Unknown [id number] 2.16.8 40.1.540640.3.579.2.462 Unknown [id number] 2.16.8 40.1.881290.3.579.2.462 Unknown [id number] 2.16.8 40.1.829118.3.579.2.462 Unknown [id number] 2.16.8 40.1.120139.3.579.2.462 Unknown [id number] 2.16.8 40.1.005954.3.579.2.462 Unknown [id number] 2.16.8 40.1.849608.3.579.2.462 Unknown [id number] 2.16.8 40.1.857994.3.579.2.462 Unknown [id number] 2.16.8 40.1.145514.3.579.2.462 Unknown [id number] 2.16.8 40.1.999131.3.579.2.462 Unknown [id number] 2.16.8 40.1.122036.3.579.2.462 Unknown [id number] 2.16.8 40.1.166705.3.579.2.462 Unknown [id number] 2.16.8 40.1.145809.3.579.2.462 Unknown [id number] 2.16.8 40.1.223942.3.579.2.462 Unknown [id number] 2.16.8 40.1.069391.3.579.2.462 Unknown [id number] 2.16.8 40.1.199626.3.579.2.462 Unknown [id number] 2.16.8 40.1.416932.3.579.2.462 Unknown [id number] 2.16.8 40.1.286800.3.579.2.462 Unknown [id number] 2.16.8 40.1.953065.3.579.2.462 Unknown [id number] 2.16.8 40.1.005999.3.579.2.462 Unknown [id number] 2.16.8 40.1.216420.3.579.2.462 Unknown [id number] 2.16.8 40.1.870223.3.579.2.462 Unknown [id number] 2.16.8 40.1.543900.3.579.2.462 Unknown [id number] 2.16.8 40.1.235469.3.579.2.462 Unknown [id number] 2.16.8 40.1.694890.3.579.2.462 Unknown [id number] 2.16.8 40.1.423679.3.579.2.462 Unknown [id number] 2.16.8 40.1.723166.3.579.2.462 Unknown [id number] 2.16.8 40.1.094075.3.579.2.462 Unknown [id number] 2.16.8 40.1.102992.3.579.2.462 Unknown [id number] 2.16.8 40.1.699208.3.579.2.462 Unknown [id number] 2.16.8 40.1.713981.3.579.2.462 Unknown [id number] 2.16.8 40.1.176050.3.579.2.462 Unknown [id number] 2.16.8 40.1.173714.3.579.2.462 Unknown [id number] 2.16.8 40.1.947934.3.579.2.462 Unknown [id number] 2.16.8 40.1.405144.3.579.2.462 Unknown [id number] 2.16.8 40.1.940726.3.579.2.462 Unknown [id number] 2.16.8 40.1.590066.3.579.2.462 Unknown [id number] 2.16.8 40.1.610700.3.579.2.462 Unknown [id number] 2.16.8 40.1.804063.3.579.2.462 Unknown [id number] 2.16.8 40.1.900049.3.579.2.462 Unknown [id number] 2.16.8 40.1.613459.3.579.2.462 Unknown [id number] 2.16.8 40.1.912903.3.579.2.462 Unknown [id number] 2.16.8 40.1.213596.3.579.2.462 Unknown [id number] 2.16.8 40.1.994660.3.579.2.462 Unknown [id number] 2.16.8 40.1.332041.3.579.2.462 Unknown [id number] 2.16.8 40.1.363281.3.579.2.462 Unknown [id number] 2.16.8 40.1.417162.3.579.2.462 Unknown [id number] 2.16.8 40.1.086019.3.579.2.462 Unknown [id number] 2.16.8 40.1.768736.3.579.2.462 Unknown [id number] 2.16.8 40.1.596283.3.579.2.462 Unknown [id number] 2.16.8 40.1.250507.3.579.2.462 Unknown [id number] 2.16.8 40.1.754355.3.579.2.462 Unknown [id number] 2.16.8 40.1.978248.3.579.2.462 Unknown [id number] 2.16.8 40.1.023320.3.579.2.462 Unknown [id number] 2.16.8 40.1.208319.3.579.2.462 Unknown [id number] 2.16.8 40.1.603350.3.579.2.462 Unknown [id number] 2.16.8 40.1.501012.3.579.2.462 Social History Date Type Detail Facility Start: 12-17-2016 End: 12-15-2024 Tobacco smoking status NHIS Former smoker [facility] Start: 12-17-2016 End: 10-09-2020 Cigarettes smoked current (pack per day) - Reported [facility] Work Phone: Start: 1945 Sex Assigned At [facility] file [facility] Work Phone: Start: 12-17-2016 End: 10-09-2020 Tobacco use and exposure Never used [facility] Start: 12-17-2016 End: 01-10-2021 Alcohol intake Current non-drinker of alcohol (finding) [facility] Start: 03-10-2016 Tobacco Comment quit 25+ yrs ago [facility] Exposure to SARS-CoV -2 (event) Not sure [facility] Start: 08-01-2021 End: 12-21-2022 Tobacco smoking status NHIS Unknown if ever smoked [facility] Start: 01-12-2020 None [facility] Start: 01-12-2020 Spouse/ Signif icant Other [facility] Start: 11-18-2020 Non-smoker [facility] Start: 1945 Sex Assigned At Male [facility] Start: 07-13-2024 End: 08-08-2024 Sex Male (finding) [facility] Medical Equipment Procedure Code Equipment Code Equipment Origin al Text Equipment Identifier Dates Stent 3.50 X 23 [facility] Xpedition Rx - [id number] ()[id number] FDA Start: 01-04-2015 ()[id number] [id number] FDA Start: 08-31-2022 ()[id number] [id number] FDA Start: 08-31-2022 ()[id number] [id number] FDA Start: 11-27-2024 ()[id number] [id number] FDA Start: 11-30-2024 ()[id number] 0)[id number] FDA Start: 11-30-2024 Goals Date Patient Goal Desired Activity /State Functional Status Date Assessment Result Facility 12-17-2024 Functional status Ambulates [facility] Work Phone: 12-08-2024 Functional status Bedrest [facility] Work Phone: 12-06-2024 Functional status Ambulates [facility] Work Phone: 12-05-[address] [facility] Work Phone: 12-04-[address] [facility] Work Phone: 12-02-2024 Functional status Bedrest [facility] Work Phone: 11-28-2024 Functional status Ambulates [facility] Work Phone: 11-27-2024 Functional status [facility] [employer] Work Phone: 09-21-2022 Functional status Chair [facility] Work Phone: 09-20-2022 Functional status Assistive Ning lauro Rolling Walker [facility] Work Phone: 09-01-2022 Functional status Activity Ability Indepe ndent [facility] Work Phone: 08-31-2022 Functional status Ambulates [facility] Work Phone: Mental Status Date Assessment Result Facility 12-17-2024 Cognitive function Voice/Name [facility] Work Phone: 12-08-2024 Cognitive function Voice/Name [facility] Work Phone: 12-07-2024 Cognitive function Voice/Name [facility] Work Phone: 12-06-2024 Cognitive function Voice/Name [facility] Work Phone: 12-05-2024 Cognitive function Voice/Name [facility] Work Phone: 12-02-2024 Cognitive function Voice/Name [facility] Work Phone: 12-02-2024 Cognitive function Voice/Name [facility] Work Phone: 11-28-2024 Cognitive function Voice/Name [facility] Work Phone: 11-27-2024 Cognitive function Voice/Name [facility] Work Phone: 09-21-2022 Cognitive function Voice/Name [facility] Work Phone: 09-01-2022 Cognitive function Appropriate;Cooperativ e [facility] Work Phone: 11-16-2021 Cognitive function Voice/Name [facility] Work Phone: 06-10-2021 Cognitive function Level Of Cons ciousness Awake;Alert;Appropriate [facility] Work Phone: Clinical Notes 06-25-2020 to 12-17-2024 Note Date & Type Note Facility 12-17-2024 Note [facility] 12-17-2024 Hospital Discharg e instructions Additional Instructions Date of Discharge: 12/17/24 [facility] Work Phone: 12-16-2024 Progress note Note Date/Time December 17, 2024 1:40pm [facility] Medical Records Department [address] [place] [address] Progress Note - Hospitalist 12/16/24 184 MR#: [id number] Acct: [id number] Name: ERIBERTO RICO Rep #:[id number] : 1945 79 From: Marycarmen Marlow DO PCP: Dr. Marycarmen Rodriguez, DO Status:ADM IN Location: [place] [address] Reason for Visit Chief Complaint: Chest pain Subjective Subjective Patient was seen and examined today, he had nausea and vomiting today and I elected to have him remain in the hospital for now and reevaluate him tomorrow for possible discharge to his fdc. 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 Problem Recommendation Dietitian Will liberalize [...] 75.7 H, Lymph % (Auto) 10.7 L, Lamb % (Auto) 12.1 H, Eos % (Auto) [...] multiple medical problems-patient will return to his fpc facility when medically stable Total clinical time spent by myself addressing the patient's medical issues, reviewing all of his data, and collaborating patient's care team: 35 minutes Charges/Coding Visit Charges Inpatient E&M: 92543 Subs Hosp L2 12/17/24 1340 <Electronically signed by Marycarmen Marlow DO> Cosigner Signature (if applicable): CC: ~ Signed [facility] Work Phone: 1(610) 617-789108-16-2025 Progress note Author Lance Rodriguez [facility] Note Date/Time December 16, 2024 12 :02pm [facility] Medical Records Department [address] [place] [address] Progress Note 12/16/24 1154 MR#: [id number] Acct: [id number] Name: ERIBERTO RICO Rep #:[id number] : 1945 79 From: Lance Rodriguez MD PCP: Dr. Marycarmen Rodriguez, Status:ADM IN Location: [place] [address] Progress Note He states that his breathing [...] that may raise the possibility of post UT pericarditis and may explain some of his [...] Cosigner Signature (if applicable): CC: ~ Signed [facility] Work Phone: 1(147) 115-852108-15-2025 History and physical note Author Ramonita Herron [facility] Note Date/Time December 15, 2024 3: 23pm [facility] Medical Records Department [address] [place] [address] H&P Exam - Hospitalist 12/15/24 1436 MR#: [id number] Acct: [id number] Name: ERIBERTO RICO Rep #:[id number] : 1945 79 From: Ramonita Herron MD PCP: Dr. Marycarmen Rodriguez, DO Status:ADM IN Location: [facility] [id number] HPI - General General Date of Admission: 12/15/24 Date of Service: 12/15/24 Chief Complaint: Chest pain HPI Narrative ERIBERTO RICO, is a 79-year-old male history of CKD, heart failure, coronary artery disease, COPD, recent STEMI after an in-stent thrombosis who presented [facility] ED 12/15/2024 for active chest pain. Reportedly [...] legs are actually less swollen than usual. [facility] Medical History Recent ST elevation myocardial infarction (STEMI) Chest pain History of acute inferior wall [place] Acute ST elevation myocardial infarction (STEMI) of [...] attack) Obstructive sleep apnea 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 Type 2 diabetes [...] History household members: spouse and none housing: fdc Smoking Status: Former smoker quit date: 05/03/98 [...] 79.3 H, Lymph % (Auto) 9.7 L, Lamb % (Auto) 9.9, Eos % (Auto) 0.1, Baso % (Auto) 0.2, Absolute Neuts (auto) 11.7 H, Absolute Lymphs (auto) 1.43, Nucleated RBC % 0, PT 16.8 H, INR 1.3, OXSE879.8 H*, Sodium 129 L, Potassium 4.5, Chloride [...] No acute abnormality is seen. Reading Location: [facility] Assessment & Plan Assessment/Plan (1) Chest pain: PLAN: Plan #Recurrent chest pain and elevated trop - Patient with history of coronary artery disease with recent stent and subsequent in-stent thrombosis for which she was taken back to the [facility] - He was subsequently discharged but readmitted again as a STEMI alert however heart cath at that time showed no acute process -Trop initially 1137, though this is down from 12/07 when his troponin was 7100, will trend - Cardiology on consult - Social Worker examined patient's EKG, looks similar to previous send not taken emergently to [facility] - There is concern that he could have Ric syndrome as he has a small pericardial effusion there is theoretically the risk of post UT pericarditis, cardiology to initiate colchicine -NSAIDs to [...] 78 Minutes Charges/Coding Visit Charges Inpatient E&M: 87514 Init Hosp L3 12/15/24 1523 <Electronically signed by Ramonita Herron MD> Cosigner Signature (if applicable): CC: Dr. Marycarmen Rodriguez, DO; Dr. Ramonita Herron MD~ Signed [facility] Work Phone: 1(272) 992-261108-15-2025 Consult note Author Sunil Faye [facility] Note Date/Time December 15, 2024 2: 19pm [facility] Medical Records Department [address] [place] [address] [place] [address] Consultation - Cardiology 12/15/24 1337 MR#: [id number] Acct: [id number] Name: ERIBERTO RICO Rep #:[id number] : [...] that may raise the possibility of post UT pericarditis and may explain some of his [...] diabetes mellitus without complications: QUALIFIERS: Diabetes mellitus [facility] insulin use: without [facility] use Qualified Code(s): E11.9 - Type 2 [...] 1100 compared to the last admission December 110. His EKG continues to demonstrate significant ST [...] diabetes mellitus, and remote history of TIA PFSH Medical History Recent ST elevation myocardial infarction (STEMI) Chest pain History of acute inferior wall UT Acute ST elevation myocardial infarction (STEMI) of [...] attack) Obstructive sleep apnea 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 Type 2 diabetes [...] History household members: spouse and none housing: fdc Smoking Status: Former smoker quit date: 05/03/98 [...] 79.3 H, Lymph % (Auto) 9.7 L, Lamb % (Auto) 9.9, Eos % (Auto) 0.1, [...] 79.3 H, Lymph % (Auto) 9.7 L, Lamb % (Auto) 9.9, Eos % (Auto) 0.1, [...] No acute abnormality is seen. Reading Location: [facility] DEXTER Risk Score for UA/STEMI Assesmment (YES = 1) Risk Stratification Applicable: No 12/15/24 1419 <Electronically signed by Sunil Faye MD> Cosigner Signature (if applicable): CC: Dr. Marycarmen Rodriguez, DO~ Signed [facility] Work Phone: 1(122) 800-848208-15-2025 Discharge summary Author Payal Weldon [facility] Note Date/Time December 15, 2024 1: 39pm [facility] Medical Records Department [address] [place] [address] Emergency Department Summary 12/15/24 MR#: [id number] Acct: [id number] Name: ERIBERTO RICO Rep #:[id number] : [...] moderately. Denies any leg edema, fevers, cough. 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 EKG showing ventricular rate 98, MS 186, QTc 357. Left axis deviation. Compared [...] of 9. Spoke with the hospitalist, Ramonita Anderson to patient with further workup and admission [...] 79.3 H Lymph % (Auto) 9.7 L Lamb % (Auto) 9.9 Eos % (Auto) 0.1 [...] No acute abnormality is seen. Reading Location: [facility] Chest x-ray independently interpreted myself showing cardiomegaly. Largely unchanged from previous compared on 12/07/2024 EKG Initial EKG: Attestation: I personally reviewed and interpreted this EKG as follows: Interpretation: Sinus Rhythm Comments: EKG independently interpreted by myself showing evidence of normal sinus rhythm. Ventricular rate 98, MS 186, QTc 357. Left axis deviation. Compared to previous EKG on 12/07/2024 ST elevation in lead III largely unchanged. Concerned that there may be slightly more elevation in lead II and V6 compared to 12/07 concerning for new ischemia. STEMI alert activated. Prior EKG tracings: available for review (12/07/24) Management Discussion w/another healthcare provider: Hospitalist and Plant Technical Specialist Discharge Plan Dx/Rx/DC Orders Clinical Impression: Chest pain Disposition Disposition: Acute Care Hospital [facility] What to do if you have Problems For any increased pain, shortness of breath, bleeding, nausea or vomiting, chestpain, or any unexpected problems, contact your Primary Care Provider. Call [facility] ([phone]) or report to the closest Emergency Room. Call 911 if necessary. 12/15/24 0311 <Electronically signed by Payal Weldon DO> Cosigner Signature (if applicable): CC: Dr. Marycarmen Rodriguez DO ~ Signed [facility] Work Phone: 1(928) 609-357508-15-2025 Radiology [facility] study [facility]08-08-2025 Discharge summary Author Alex Sanon [facility] Note Date/Time December 08, 2024 12: 26pm [facility] Medical Records Department [address] [place] [address] Discharge Summary 12/08/24 1222 MR#: [id number] Acct: [id number] Name: ERIBERTO RICO Rep #:[id number] : 1945 79 From: Alex Sanon MD PCP: Dr. Marycarmen Rodriguez DO Status:ADM EDMUND Location: [place] [address] Providers Date of Admission: 12/07/24 Primary Care Physician: Dr. Marycarmen Rodriguez DO Reason For Visit: SHORTNESS OF BREATH. Diagnosis Discharge Diagnosis (1) DEAN (dyspnea on exertion): Status: Acute Code(s): R06.00 - Dyspnea, unspecified Plan Patient is a 79-year-old gentleman with recent history of acute inferior STEMI which was complicated by distal PLV dissection who was discharged to a fpc facility brought back with shortness of breath. [...] his ECF 2. Recent acute inferior wall UT ? This was complicated by PLV dissection [...] ? Patient was recently discharged to a fpc facility plan is for patient to be [...] 74.1 H, Lymph % (Auto) 11.4 L, Lamb % (Auto) 12.1 H, Eos % (Auto) [...] probability scan for pulmonary embolism. 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 Alex Sanon MD; Dr. Marycarmen Rodriguez DO~ Signed [facility] Work Phone: 1(169) 136-288408-08-2025 [facility]08-08-2025 Nuclear medicine Diagnostic study [facility]08-08-2025 Progress note Author Alex Sanon [facility] Note Date/Time December 08, 2024 9:2 1am [facility] Medical Records Department [address] [place] [address] Progress Note - Hospitalist 12/08/24 0734 MR#: [id number] Acct: [id number] Name: ERIBERTO RICO Rep #:[id number] : 1945 79 From: Alex Sanon MD PCP: Dr. Marycarmen Rodriguez DO Status:ADM EDMUND Location: [place] [address] Subjective Subjective Patient is a 79-year-old gentleman with recent history of acute inferior STEMI which was complicated by distal PLV dissection who was discharged to a fpc facility brought back with shortness of breath. [...] 79.0 H, Lymph % (Auto) 7.9 L, Lamb % (Auto) 11.5 H, Eos % (Auto) [...] 7122 H* D, NT pro BNP II 7H 12/07/24 13:00: Troponin T Hi Sens 2 Hr 6442 H* 12/07/24 16:35: Troponin T Hi Sens 4Hr 6556 H* 12/07/24 17:36: POC Glucose 187 H 12/07/24 23:07: POC Glucose 222 H 12/08/24 06:57: POC Glucose 185 H Radiography Diagnostic Testing: Radiology Impression Chest X-Ray 12/07/24 10:59 IMPRESSION: No acute cardiopulmonary process Reading Location: [id number] Physical Exam Narrative GENERAL: cooperative HEENT: Atraumatic; [...] PLV dissection who was discharged to a fpc facility brought back with shortness of breath. Patient was found to have elevated D-dimer admitted to monitored bed VQ scan ordered for subsequent evaluation 1. Exertional dyspnea ? Patient was found to have elevated D-dimer admitted to monitored bed VQ scan ordered for subsequent evaluation 2. Recent acute inferior wall UT ? This was complicated by PLV dissection [...] ? Patient was recently discharged to a fpc facility plan is for patient to be [...] Subcu heparin Charges/Coding Visit Charges Inpatient E&M: 36906 Subs Hosp L2 12/08/24 0921 <Electronically signed by Alex Sanon MD> Cosigner Signature (if applicable): CC: ~ Signed [facility] Work Phone: 1([phone]) 656-681208-07-2025 History and physical note Author Shaan Santos [facility] Note Date/Time December 07, 2024 4:4 8pm [facility] Medical Records Department [address] [place] [address] H&P Exam - Hospitalist 12/07/24 1633 MR#: [id number] Acct: [id number] Name: ERIBERTO RICO Rep #:[id number] : 1945 79 From: Shaan Santos DO PCP: Dr. Marycarmen Rodriguez, DO Status:ADM EDMUND Location: [address] HPI - General General Date of [...] currently on room air and breathing comfortably. 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 Charges/Coding Visit Charges Inpatient E&M: 99209 Init Hosp L3 12/07/24 2256 <Electronically signed by Shaan Santos DO> Cosigner Signature (if applicable): CC: Dr. Shaan Santos DO; Dr. Marycarmen Rodriguez DO~ Signed [facility] Work Phone: 1(680) 383-898008-07-2025 Radiology Diagnostic study [facility]08-06-2025 Consult note Author Cyndie Frye [facility] Note Date/Time December 06, 2024 12: 22pm [facility] Medical Records Department [address] [place] [address] Counseling Note - Pharmacy 12/06/24 1222 MR#: [id number] Acct: [id number] Name: ERIBERTO RICO Rep #:[id number] : 1945 79 From: Cyndie Frye PCP: Dr. Marycarmen Rodriguez DO Status:ADM IN Y Location: [address] Med Reconciliation Pharmacy Service has performed discharge [...] Signature (if applicable): Date CC: ~ Signed [facility] Work Phone: 1(385) 895-208208-06-2025 Hospital Discharge instructionsAdditional Instructions Date of Discharge: 12/06/24[facility] Work Phone: 1(597) 877-364708-06-2025 Discharge summary Author Alex Sanon [facility] Note Date/Time December 06, 2024 11: 59am [facility] Medical Records Department [address] [place] [address] Transfer to [facility] MR#: [id number] Acct: [id number] Name: ERIBERTO RICO Rep #:[id number] : 1945 79 From: Alex Sanon MD PCP: Dr. Marycarmen Rodriguez, DO Status:ADM IN Certification of patient admission REQUIRED AT TIME OF ADMISSION. I CERTIFY THAT POST-HOSPITAL CRITICAL ACCESS HOSPITAL SERVICES ARE REQUIRED TO BE GIVEN ON AN IN-PATIENT BASIS BECAUSE OF THE ABOVE NAMED PATIENT'S NEED FOR GROUP HOME CARE ON A CONTINUING BASIS FOR THE CONDITION(S) FOR WHICH HE/SHE WAS RECEIVING IN-PATIENT HOSPITAL SERVICES PRIOR TO HIS/HER TRANSFER TO THE CRITICAL ACCESS HOSPITAL. 12/06/24 1159<Electronically signed by Alex Sanon [...] 1. Recent history of acute inferior wall UT with persistent EKG changes; episode of ventricular [...] ? Requested for PT OT eval and social worker to assist with discharge planning ? 12/06/2024 plan is for patient to be discharged to a fpc facility pending bed availability as well as [...] in before D/C Order can be placed): Half-Way Facility 12/06/24 1159 <Electronically signed by Alex Sanon MD> Cosigner Signature (if applicable): CC: Dr. Abraham Ridley DO; Dr. Mickey Simpson MD; Dr. Marycarmen Rodriguez DO;Dr. Ramonita Herron MD ~ [facility] Work Phone: 1(805) 985-572008-06-2025 Discharge summary Author Alex Sanon [facility] Note Date/Time December 06, 2024 11: 55am [facility] Medical Records Department [address] [place] [address] Transfer to [facility] MR#: [id number] Acct: [id number] Name: ERIBERTO RICO Rep #:[id number] : 1945 79 From: Alex Sanon MD PCP: Dr. Marycarmen Rodriguez DO Status:ADM IN Certification of patient admission REQUIRED AT TIME OF ADMISSION. I CERTIFY THAT POST-HOSPITAL ECF SERVICES ARE REQUIRED TO BE GIVEN ON AN IN-PATIENT BASIS BECAUSE OF THE ABOVE NAMED PATIENT'S NEED FOR GROUP HOME CARE ON A CONTINUING BASIS FOR THE CONDITION(S) FOR WHICH HE/SHE WAS RECEIVING IN-PATIENT HOSPITAL SERVICES PRIOR TO HIS/HER TRANSFER TO THE F. 12/06/24 1155<Electronically signed by Alex Sanon MD> [...] 1. Recent history of acute inferior wall UT with persistent EKG changes; episode of ventricular [...] ? Requested for PT OT eval and social worker to assist with discharge planning ? 12/06/2024 plan is for patient to be discharged to a fpc facility pending bed availability as well as [...] in before D/C Order can be placed): Half-Way Facility 08/06/25 1155 <Electronically signed by Alex Sanon MD> Cosigner Signature (if applicable): CC: Dr. Abraham Ridley DO; Dr. Mickey Simpson MD; Dr. Marycarmen Rodriguez DO;Dr. Ramonita Herron MD ~ [facility] Work Phone: 1([phone]) 444-253608-06-2025 Discharge summary Author Alex Sanon [facility] Note Date/Time December 06, 2024 11: 53am [facility] Medical Records Department [address] [place] [address] Discharge Summary 12/06/24 1146 MR#: [id number] Acct: [id number] Name: ERIBERTO RICO Rep #:[id number] : 1945 79 From: Alex Sanon MD PCP: Dr. Marycarmen Rodriguez DO Status:ADM IN Location: [place] [address] Providers Date of Admission: 12/03/24 Date of [...] 1. Recent history of acute inferior wall UT with persistent EKG changes; episode of ventricular [...] ? Requested for PT OT eval and social worker to assist with discharge planning ? 12/06/2024 plan is for patient to be discharged to a fpc facility pending bed availability as well as [...] 72.7 H, Lymph % (Auto) 11.6 L, Lamb % (Auto) 12.9 H, Eos % (Auto) [...] in before D/C Order can be placed): Half-Way Facility Charges/Coding Visit Charges Inpatient E&M: 85486 Disch Hosp >30min 12/06/24 1153 <Electronically signed by Alex Sanon MD> Cosigner Signature (if applicable): CC: Dr. Alex Sanon MD; Dr. Marycarmen Rodriguez DO~ Signed [facility] Work Phone: 1(533) 997-765908-06-2025 [facility]08-06-2025 Progress note Author Alex Sanon [facility] Note Date/Time December 06, 2024 8:4 0am [facility] Medical Records Department [address] [place] [address] Progress Note - Hospitalist 12/06/24 0838 MR#: [id number] Acct: [id number] Name: ERIBERTO RICO Rep #:[id number] : 1945 79 From: Alex Sanon MD PCP: Dr. Marycarmen Rodriguez, DO Status:ADM IN Location: [place] [address] Reason for Visit Chief Complaint: Chest Pain with STEMI alert. Subjective Subjective Patient seen remains physically deconditioned. Was seen in consultation by physical therapy recommendation is for patient to be discharged to a fpc facility case management subsequently consulted Objective Data [...] 72.7 H, Lymph % (Auto) 11.6 L, Lamb % (Auto) 12.9 H, Eos % (Auto) [...] 1. Recent history of acute inferior wall UT with persistent EKG changes; episode of ventricular [...] ? Requested for PT OT eval and social worker to assist with discharge planning ? 12/06/2024 plan is for patient to be discharged to a fpc facility pending bed availability as well as insurance precertification Time spent in the patient's overall evaluation,decision-making process, review of diagnostic data, adjustment of management, discussion with other providers, nursing nursing and ancillary staff involved in patient's care documentation, 36 Minutes Charges/Coding Visit Charges Inpatient E&M: 85442 Subs Hosp L2 Date medically ready for discharge: 12/06/24 Reason for DC delay: Precert pending from insurance 12/06/24 0840 <Electronically signed by Alex Sanon MD> Cosigner Signature (if applicable): CC: ~ Signed [facility] Work Phone: 1(951) 822-314808-06-2025 Progress note Author Marcin Araujo [facility] Note Date/Time December 06, 2024 7:5 1am [facility] Medical Records Department [address] [place] [address] Progress Note - Cardiology 12/06/2447 MR#: [id number] Acct: [id number] Name: ERIBERTO RICO Rep #:[id number] : 1945 79 From: Marcin Araujo MD PCP: Dr. Marycarmen Rodriguez, DO Status:ADM IN Location: [place] [address] Subjective Subjective Patient seen and evaluated. Appears [...] 72.7 H, Lymph % (Auto) 11.6 L, Lamb % (Auto) 12.9 H, Eos % (Auto) [...] 72.7 H, Lymph % (Auto) 11.6 L, Lamb % (Auto) 12.9 H, Eos % (Auto) [...] Assessment/Plan (1) History of acute inferior wall UT: PLAN: Patient underwent cardiac catheterization and the [...] Cosigner Signature (if applicable): CC: ~ Signed [facility] Work Phone: 1(570) 186-976408-05-2025 Progress note Author Alex Sanon [facility] Note Date/Time December 05, 2024 10: 29am [facility] Medical Records Department [address] [place] [address] Progress Note - Hospitalist 12/05/24 1019 MR#: [id number] Acct: [id number] Name: ERIBERTO RICO Rep #:[id number] : 1945 79 From: Alex Sanon MD PCP: Dr. Marycarmen Rodriguez, DO Status:ADM IN Location: [place] [address] Reason for Visit Chief Complaint: Chest Pain [...] 1. Recent history of acute inferior wall UT with persistent EKG changes; episode of ventricular [...] ? Requested for PT OT eval and social worker to assist with discharge planning Time spent in the patient's overall evaluation,decision-making process, review of diagnostic data, adjustment of management, discussion with other providers, nursing nursing and ancillary staff involved in patient's care documentation, 38 Minutes Charges/Coding Visit Charges Inpatient E&M: 47694 Subs Hosp L2 12/05/24 1021 <Electronically signed by Alex Sanon MD> Cosigner Signature (if applicable): CC: ~ Signed [facility] Work Phone: 1(668) 572-667408-05-2025 Progress note Author Marcin Araujo [facility] Note Date/Time December 05, 2024 7:5 3am [facility] Medical Records Department [address] [place] [address] Progress Note - Cardiology 12/05/2445 MR#: [id number] Acct: [id number] Name: ERIBERTO RICO Rep #:[id number] : 1945 79 From: Marcin Araujo MD PCP: Dr. Marycarmen Rodriguez, DO Status:ADM IN Location: [place] [address] Subjective Subjective Patient seen and evaluated. Doing [...] Ratio 18.2, Glucose 155 H, Calcium 9.1 08/05/25 06:40: POC Glucose 190 H Cardiology Labs/Tests [...] Assessment/Plan (1) History of acute inferior wall UT: PLAN: Patient underwent cardiac catheterization and the [...] Cosigner Signature (if applicable): CC: ~ Signed [facility] Work Phone: 1(108) 388-558308-04-2025 Progress note Author Abraham Ridley [facility] Note Date/Time December 04, 2024 2:2 1pm [facility] Medical Records Department [address] [place] [address] Progress Note - Hospitalist 12/04/24 1057 MR#: [id number] Acct: [id number] Name: ERIBERTO RICO Rep #:[id number] : 1945 79 From: Abraham inman DO PCP: Dr. Marycarmen Rodriguez, DO Status:ADM IN Location: [place] [address] Reason for Visit Chief Complaint: Chest Pain [...] 2300 Balance -2090 / -3050 -0 / -0 Lab / Micro Data 12/04/24 05:02 12/04/24 [...] 73.9 H, Lymph % (Auto) 11.1 L, Lamb % (Auto) 11.9 H, Eos % (Auto) [...] Patient is a 79-year-old male who presented [facility] ED on 12/02/2024 as a STEMI alert. 1. Recent history of acute inferior wall UT with persistent EKG changes; episode of ventricular [...] 35 minutes. Charges/Coding Visit Charges Inpatient E&M: 86308 Subs Hosp L2 12/04/24 5988 <Electronically signed by Abraham Ridley DO> Cosigner Signature (if applicable): CC: ~ Signed [facility] Work Phone: [phone]) 871-942008-04-2025 Progress note Author Marcin Araujo [facility] Note Date/Time December 04, 2024 8:5 2am [facility] Medical Records Department [address] [place] [address] Progress Note - Cardiology 12/04/24724 MR#: [id number] Acct: [id number] Name: ERIBERTO RICO Rep #:[id number] : 1945 79 From: Macrin Araujo MD PCP: Dr. Marycarmen Rodriguez, DO Status:ADM IN Location: [place] [address] Subjective Subjective Patient seen and evaluated. Sleeping. [...] 2090 / 3290 2300 / 2300 Balance -2089 / -3049 -2059 / -2059 Lab / Micro Data 12/04/24 05:02 12/04/24 05:02 Labs: Laboratory Results - last 24 hr 12/03/24 07:20: Urine Color Yellow, Urine Clarity Clear, Urine pH 6.0, Ur Specific Foley 1.015, Urine Protein 15 H, Urine Glucose [...] 75.5 H, Lymph % (Auto) 10.5 L, Lamb % (Auto) 11.4 H, Eos % (Auto) [...] 73.9 H, Lymph % (Auto) 11.1 L, Lamb % (Auto) 11.9 H, Eos % (Auto) [...] Clarity Clear, Urine pH 6.0, Ur Specific Foley 1.015, Urine Protein 15 H, Urine Glucose [...] 75.5 H, Lymph % (Auto) 10.5 L, Lamb % (Auto) 11.4 H, Eos % (Auto) [...] 73.9 H, Lymph % (Auto) 11.1 L, Lamb % (Auto) 11.9 H, Eos % (Auto) 2.2, Baso % (Auto) 0.3, Absolute Neuts (auto) 7.1, Nucleated RBC % 0, Sodium 137, Potassium 3.1 L, Chloride 96 L, Carbon Dioxide 21.4, Anion Gap 19 H, BUN 49 H, Creatinine 2.53 H, Est GFR (MDRD) Non-Af 25 L, BUN/Creatinine Ratio 19.4, Blslybo694 H, Calcium 9.2 Rhythm: EKG: ECHO: Stress [...] Assessment/Plan (1) History of acute inferior wall UT: PLAN: Patient underwent cardiac catheterization and the [...] Cosigner Signature (if applicable): CC: ~ Signed [facility] Work Phone: 1(676) 382-973508-04-2025 Consult note Author Marcin Araujo [facility] Note Date/Time December 04, 2024 6:4 7am [facility] Medical Records Department [address] [place] [address] Consultation - Cardiology 12/03/24 1241 MR#: [id number] Acct: [id number] Name: ERIBERTO RCIO Rep #:[id number] : 1945 79 From: Marcin Araujo MD PCP: Dr. Marycarmen Rodriguez, DO Status:ADM IN Location: [place] [id number] Documented by User: Dr. 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 Type 2 diabetes [...] 76.7 H, Lymph % (Auto) 8.9 L, Lamb % (Auto) 12.7 H, Eos % (Auto) [...] Calcium 9.1, Troponin T High Sens > 15132 H* D 12/02/24 20:29: Activated Clotting Time 245 H 12/02/24 22:43: Troponin T Hi Sens 2 Hr > 86958 H* 12/03/24 01:17: Troponin T Hi Sens 4Hr > 81124 H* 12/03/24 06:14: POC Glucose 140 H 12/03/24 07:20: Urine Color Yellow, Urine Clarity Clear, Urine pH 6.0, Ur Specific Foley 1.015, Urine Protein 15 H, Urine Glucose [...] 75.5 H, Lymph % (Auto) 10.5 L, Lamb % (Auto) 11.4 H, Eos % (Auto) [...] 76.7 H, Lymph % (Auto) 8.9 L, Lamb % (Auto) 12.7 H, Eos % (Auto) [...] Clarity Clear, Urine pH 6.0, Ur Specific Foley 1.015, Urine Protein 15 H, Urine Glucose [...] 75.5 H, Lymph % (Auto) 10.5 L, Lamb % (Auto) 11.4 H, Eos % (Auto) [...] Assessment/Plan (1) History of acute inferior wall UT: (2) Coronary artery vasospasm: (3) CHF (congestive heart failure): QUALIFIERS: Heart failure chronicity: acute on chronic Heart failure type: diastolic Qualified Code(s): I50.33 - Acute on chronic diastolic (congestive) heart failure (4) Dyslipidemia: HPI Consult Data Date of Consult: 12/04/24 [facility] Medical History Anemia Diabetes mellitus [...] kidney disease, stage 3 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 Marycarmen Rodriguez, DO~ Signed [facility] Work Phone: 1(619) 226-381608-03-2025 Progress note Author Ramonita Herron [facility] Note Date/Time December 03, 2024 3:5 7pm [facility] Medical Records Department [address] [place] [address] Progress Note - Hospitalist 12/03/24 1548 MR#: [id number] Acct: [id number] Name: ERIBERTO RICO Rep #:[id number] : 1945 79 From: Ramonita Herron MD PCP: Dr. Marycarmen Rodriguez, Status:ADM IN Location: [place] [id number]- 1 Reason for Visit Chief Complaint: Chest Pain [...] 76.7 H, Lymph % (Auto) 8.9 L, Lamb % (Auto) 12.7 H, Eos % (Auto) [...] Calcium 9.1, Troponin T High Sens > 75936 H* D 12/02/24 20:29: Activated Clotting Time 245 H 12/02/24 22:43: Troponin T Hi Sens 2 Hr > 45457 H* 12/03/24 01:17: Troponin T Hi Sens 4Hr > 50791 H* 12/03/24 06:14: POC Glucose 140 H 12/03/24 07:20: Urine Color Yellow, Urine Clarity Clear, Urine pH 6.0, Ur Specific Foley 1.015, Urine Protein 15 H, Urine Glucose [...] 75.5 H, Lymph % (Auto) 10.5 L, Lamb % (Auto) 11.4 H, Eos % (Auto) [...] Recent STEMI -Was emergently taken to the [facility] 11/30 due to a STEMI. Emergent cath [...] on 12/02 and went emergently to the [facility] however no intervention was needed or warranted [...] Herron MD Charges/Coding Visit Charges Inpatient E&M: 17890 Subs Hosp L2 12/03/24 9984 <Electronically signed by Ramonita Herron MD> Cosigner Signature (if applicable): CC: ~ Signed [facility] Work Phone: 1(194) 251-228708-03-2025 History and physical note Author Alex Resendez [facility] Note Date/Time December 03, 2024 5:5 6am [facility] Medical Records Department [address] [place] [address] H&P Exam - Hospitalist 12/02/242049 MR#: [id number] Acct: [id number] Name: ERIBERTO RICO Rep #:[id number] : 1945 79 From: Alex Colon DO PCP: Dr. 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 Mr. [...] symptoms are very similar to his previous UT's. There was no report of associated fever,chills, [...] is expected to extend beyond 2 midnights. 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 Patient taken for emergent LHC by [facility] with the patient suspected to have acute coronary vasospasm with no lesion noted so patient will be managed in PCU. Continue present treatment with baby aspirin, ticagrelor and IV heparin. Give acetaminophen as needed for opkj-he-jugzokoj (level 1-5/10) pain or fever. Give morphine [...] 75 minutes. Charges/Coding Visit Charges Inpatient E&M: 46016 Init Hosp L3 12/03/24 0556 <Electronically signed by Alex Sow DO> Cosigner Signature (if applicable): CC: Dr. Alex Sow DO; Dr. Marycarmen Rodriguez DO~ Signed [facility] Work Phone: 1(867) 628-402108-02-2025 Discharge summary Author Rasheed Canela [facility] Note Date/Time December 02, 2024 8:5 3pm [facility] Medical Records Department [address] [place] [address] Emergency Department Summary 12/02/24 MR#: [id number] Acct: [id number] Name: ERIBERTO RICO Rep #:[id number] : [...] EKG changes consistent with a ST elevation UT. 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 Spoke with Dr. Simpson the events solutions consultant. He was made aware of patient's history, EKG findings and prehospital treatment. Lab Data Attestation: I reviewed the patient's lab results. Lab results narrative: EKG was not repeated since prehospital EKG revealed ST elevation UT with reciprocal changes. CBC reveals mild anemia [...] 76.7 H Lymph % (Auto) 8.9 L Lamb % (Auto) 12.7 H Eos % (Auto) [...] healthcare provider: Hospitalist (Dr. Alex Handley) and Plant Technical Specialist (application processor) Critical Care Time Critical Care Time: Yes Critical care time (excluding procedures): 30-74 minutes (15), Including time spent: (History, physical, documentation, prehospital med direction, discussion with , review of prior records and independent rotation of EKG), Discussing w/Patient &/or Family/Field Investigator (Spoke with who informing that he just left the hospital this afternoon to attend his granddaughter's wedding.), Discussing w/Consultants (application processor and hospitalist) and Arranging Admission or Transfer Discharge Plan Dx/Rx/DC Orders Clinical Impression: Acute ST elevation myocardial infarction (STEMI) of inferior wall, Obstructive sleep apnea, Obesity, Chronic kidney disease, Diabetes mellitus, Hyperlipidemia Disposition Disposition: Acute Care Hospital [facility] What to do if you have Problems For any increased pain, shortness of breath, bleeding, nausea or vomiting, chestpain, or any unexpected problems, contact your Primary Care Provider. Call [facility] ([phone]) or report to the closest Emergency Room. Call 911 if necessary. 12/02/242052 <Electronically signed by Rasheed Canela MD> Cosigner Signature (if applicable): CC: Dr. Marycarmen Rodriguez, DO ~ Signed [facility] Work Phone: 1(599) 194-645808-02-2025 Consult note Author Jamar Tapia [facility] Note Date/Time December 02, 2024 12: 23pm [facility] Medical Records Department [address] [place] [address] Consultation - Neurology 12/02/24 1207 MR#: [id number] Acct: [id number] Name: ERIBERTO RICO Rep #:[id number] : 1945 79 From: Jamar Hooker PCP: Dr. Marycarmen Rodriguez, DO Status:ADM IN Location: [place] [id number]- [id number] Assessment and Plan: Neuro Assessment/Plan ERIBERTO [...] questions or concerns. Stroke to sign off. 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 2. Age-related senescent changes. Reading Location: [facility] Active Medications Active Medications Active Medications: [...] mls @ 15 mls/hr 11/30/24 17:25 IV .[id number] PRN Saline Flush Sodium Chloride 250 mls @ 15 mls/hr 11/30/24 17:25 IV .[id number] PRN Additional IVPB Infusion Insulin Human Lispro 0 unit 11/30/24 22:00 12/02/24 06:30 Insulin Lispro 100 Unit/Ml Insuln.Pen SC Not Given ACHS [facility] Protocol Labetalol HCl 10 - 20 mg [...] 10:00 Metolazone 2.5 Mg Tablet PO DAILY [facility] Protocol Metoprolol Succinate 25 mg 12/01/24 10:00 [...] or with change in RN caregiver Freq: [id number] Protocol: Activity Type Activity Date Activity User E-sign Co-sign Detail Recorded Client Recorded Date Recorded By Document 12/01/24 20:15 ZARI [id number] 12/01/24 20:28 CD 12/01/24 20:15 [facility] Stroke [...] and with change in RN caregiver. Freq: [id number] Protocol: Activity Type Activity Date Activity User E-sign Co-sign Detail Recorded Client Recorded Date Recorded By Document 12/02/24 10:00 MATTHIASIKA [id number] 12/02/24 10:20 TSTIKA 12/02/24 10:00 [facility] Stroke [...] Hay MD; Dr. Marycarmen Rodriguez, DO~ Signed [facility] Work Phone: 1([phone]) 723-117808-02-2025 Discharge summary Author Rasheed Canela [facility] Note Date/Time December 02, 2024 8:5 3pm [facility] Medical Records Department [address] [place] [address] Emergency Department Summary 12/02/24 MR#: [id number] Acct: [id number] Name: ERIBERTO RICO Rep #:[id number] : [...] EKG changes consistent with a ST elevation UT. 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 Spoke with Dr. Simpson the events solutions consultant. He was made aware of patient's history, EKG findings and prehospital treatment. Lab Data Attestation: I reviewed the patient's lab results. Lab results narrative: EKG was not repeated since prehospital EKG revealed ST elevation UT with reciprocal changes. CBC reveals mild anemia [...] 76.7 H Lymph % (Auto) 8.9 L Lamb % (Auto) 12.7 H Eos % (Auto) [...] healthcare provider: Hospitalist (Dr. Alex Handley) and Plant Technical Specialist (application processor) Critical Care Time Critical Care Time: Yes Critical care time (excluding procedures): 30-74 minutes (15), Including time spent: (History, physical, documentation, prehospital med direction, discussion with , review of prior records and independent rotation of EKG), Discussing w/Patient &/or Family/Field Investigator (Spoke with who informing that he just left the hospital this afternoon to attend his granddaughter's wedding.), Discussing w/Consultants (application processor and hospitalist) and Arranging Admission or Transfer Discharge Plan Dx/Rx/DC Orders Clinical Impression: Acute ST elevation myocardial infarction (STEMI) of inferior wall, Obstructive sleep apnea, Obesity, Chronic kidney disease, Diabetes mellitus, Hyperlipidemia Disposition Disposition: Acute Care Hospital [facility] What to do if you have Problems For any increased pain, shortness of breath, bleeding, nausea or vomiting, chestpain, or any unexpected problems, contact your Primary Care Provider. Call [facility] ([phone]) or report to the closest Emergency Room. Call 911 if necessary. 12/02/242052 <Electronically signed by Rasheed Canela MD> Cosigner Signature (if applicable): CC: Dr. Marycarmen Rodriguez, ~ Signed [facility] Work Phone: 1([phone]) 712-282708-02-2025 Hospital Discharge instructionsAdditional Instructions 1. It is very important to not miss any doses of your ticagrelor (Brilinta) and aspirin. Please take these as prescribed with no missed doses. If you miss doses you could clot off your stents. Date of Discharge: 12/02/24[facility] Work Phone: 1(381) 919-760208-02-2025 [facility]08-01-2025 Progress note Author Abraham Ridley [facility] Note Date/Time December 01, 2024 8:2 6pm [facility] Medical Records Department [address] [place] [address] Progress Note - Hospitalist 12/01/242020 MR#: [id number] Acct: [id number] Name: ERIBERTO RICO Rep #:[id number] : 1945 79 From: Abraham inman DO PCP: Dr. Marycarmen Rodriguez DO Status:ADM IN Location: [place] [id number]- 1 Hospitalist Note Stroke alert called around 7 PM. Last known well 6:55 PM. Patient reported to [facility] that he had left facial numbness [...] that he has had several TIAs in thehist and has had similar symptoms with these [...] Cosigner Signature (if applicable): CC: ~ Signed [facility] Work Phone: 1([phone]) 453-777208-01-2025 [facility]08-01-2025 Progress note Author Nickie Danielson [facility] Note Date/Time December 01, 2024 3:5 0pm [facility] Medical Records Department [address] [place] [address] Progress Note - Hospitalist 12/01/2413 MR#: [id number] Acct: [id number] Name: ERIBERTO RICO Rep #:[id number] : 1945 79 From: Nickie Danielson DO PCP: Dr. Marycarmen Rodriguez DO Status:ADM IN Location: [place] [id number]- [id number] Reason for Visit Chief Complaint: STEMI Subjective [...] 80.9 H, Lymph % (Auto) 10.1 L, Lamb % (Auto) 7.7, Eos % (Auto) 0.4, Baso % (Auto) 0.2, Absolute Neuts (auto) 15.5 H, Absolute Lymphs (auto) 1.93, Nucleated RBC % 0.1, PT 16.1 H, INR 1.3, APTT 112.9 H*, Sodium 135, Potassium 4.4, Chloride 98, Carbon Snwaqtw49.3 L, Anion Gap 19 H, BUN 45 [...] evidence of acute pulmonary disease. Reading Location: [facility] Physical Exam Const alert, oriented x3, [...] subcu heparin Charges/Coding Visit Charges Inpatient E&M: 36476 Subs Hosp L2 12/01/24 1557 <Electronically signed by Nickie Danielson DO> Cosigner Signature (if applicable): CC: ~ Signed [facility] Work Phone: 1(655) 514-536508-01-2025 Progress note Author Marcin Araujo [facility] Note Date/Time December 01, 2024 7:3 7am [facility] Medical Records Department [address] [place] [address] [place] [address] Progress Note - Cardiology 12/01/24 0734 MR#: [id number] Acct: [id number] Name: ERIBERTO RICO Rep #:[id number] : [...] 80.9 H, Lymph % (Auto) 10.1 L, Lamb % (Auto) 7.7, Eos % (Auto) 0.4, Baso % (Auto) 0.2, Absolute Neuts (auto) 15.5 H, Absolute Lymphs (auto) 1.93, Nucleated RBC % 0.1, PT 16.1 H, INR 1.3, APTT 112.9 H*, Sodium 135, Potassium 4.4, Chloride 98, Carbon Stnpyxi46.3 L, Anion Gap 19 H, BUN 45 [...] 80.9 H, Lymph % (Auto) 10.1 L, Lamb % (Auto) 7.7, Eos % (Auto) 0.4, [...] evidence of acute pulmonary disease. Reading Location: [facility] Physical Exam Const alert, oriented x3 [...] Cosigner Signature (if applicable): CC: ~ Signed [facility] Work Phone: 1(598) 498-829507-31-2025 Discharge summary Author Isael Bernabe [facility] Note Date/Time November 30, 2024 9:35 pm [facility] Medical Records Department [address] [place] [address] Emergency Department Summary 11/30/24 MR#: [id number] Acct: [id number] Name: ERIBEROT RICO Rep #:[id number] : 1945 79 [...] was sent, they administeredaspirin, Brilinta, and heparin. 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 Does not have elevation of his white [...] 80.9 H Lymph % (Auto) 10.1 L Lamb % (Auto) 7.7 Eos % (Auto) 0.4 [...] myocardial infarction Disposition Disposition: Acute Care Hospital [facility] Discharge Date/Time: 11/30/24 15:21 What to do if you have Problems For any increased pain, shortness of breath, bleeding, nausea or vomiting, chestpain, or any unexpected problems, contact your Primary Care Provider. Call [facility] ([phone]) or report to the closest Emergency Room. Call 911 if necessary. 11/30/242134 <Electronically signed by Isael Bernabe MD> Cosigner Signature (if applicable): CC: Dr. Marycarmen Rodriguez, ~ Signed [facility] Work Phone: 1(875) 822-213907-31-2025 Progress note Author Isael Montesst. [facility] Note Date/Time November 30, 2024 9:33 pm [facility] Medical Records Department [address] [address] Quality Report 11/30/24 1605 MR#: [id number] Acct: [id number] Name: ERIBERTO RICO Rep #:[id number] : [...] applicable): Date Donald Bill CC: ~ Signed [facility] Work Phone: 1(119) 627-136107-31-2025 History and physical note Author Abraham Ridley [facility] Note Date/Time November 30, 2024 9:30 pm [facility] Medical Records Department [address] [place] [address] H&P Exam - Hospitalist 11/30/24 1705 MR#: [id number] Acct: [id number] Name: ERIBERTO RICO Rep #:[id number] : 1945 79 From: Abraham inman DO PCP: Dr. Marycarmen Rodriguez DO Status:ADM IN Location: ICU CVICU 3-1 HPI - General General Date of Admission: 11/30/24 Date of Service: 11/30/24 Chief Complaint: STEMI HPI Narrative ERIBERTO RICO, is a 79 M who presented to [facility] on 11/30/2024 as a STEMI alert. Follows with [facility] with complex CAD history, see office note from 11/22 for further details. In short, initially stenting x 2 done to the RCA in 2005. 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 Had recurrent chest pain in October and stress test on 11/10 showed mild kenyatta- infarct ischemia. Left heart cath on 11/27 showed severe in-stent restenosis of a heavily calcified proximal RCA; percutaneous intervention was performed with shockwave intracoronary lithotripsyand a drug-eluting stent. Left circumflex stent was patent. Patient then presented today with acute chest discomfort with nausea and vomiting. EKG was consistent with acute inferior STEMI. He was taken emergently to the [facility] and coronary angiography revealed a subacute stent [...] room air. No other acute concerns currently. 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 OwctB2d from 2022 was 7.7%. Repeat A1c ordered. [...] 75 minutes. Charges/Coding Visit Charges Inpatient E&M: 31882 Init Hosp L3 11/30/242129 <Electronically signed by Abraham Ridley DO> Cosigner Signature (if applicable): CC: Dr. Abraham Ridley DO; Dr. Marycarmen Rodriguez DO~ Signed [facility] Work Phone: 1([phone]) 909-643407-31-2025 Radiology [id number] Consult note Author Jose Hay [facility] Note Date/Time November 30, 2024 4:51 pm [facility] Medical Records Department [address] [place] [address] Consultation - Cardiology 11/30/24 1642 MR#: [id number] Acct: [id number] Name: ERIBERTO RICO Rep #:[id number] : [...] infarction. Subsequently a STEMI alert was called. 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 Marycarmen Rodriguez DO~ Signed [facility] Work Phone: 1(339) 961-190407-29-2025 Consult note Author Cyndiecullen Frye [facility] Note Date/Time November 28, 2024 12:2 8pm [facility] Medical Records Department [address] [place] [address] Counseling Note - Pharmacy 11/28/24 0920 MR#: [id number] Acct: [id number] Name: ERIBERTO RICO Rep #:[id number] : 1945 79 From: Cyndie Frye PCP: Dr. Marycarmen Rodriguez DO Status:ADM EDMUND Y Location: [place] [address] Pharmacy [place] Med Reconciliation Pharmacy Service has performed discharge [...] Signature (if applicable): Date CC: ~ Signed [facility] Work Phone: 1(906) 167-498507-28-2025 Discharge summary Author Jose Hay [facility] Note Date/Time November 27, 2024 11:3 5am [facility] Medical Records Department [address] [place] [address] Instructions for Home/Discharge Instructions 11/27/24 1128 MR#: [id number] Acct: [id number] Name: ERIBERTO RICO Rep #:[id number] : [...] Care Provider: Marycarmen Rodriguez Instructions Print Language: Kyrgyz Discharge Orders/Prescriptions Prescriptions: New furosemide 80 mg [...] CC: Dr. Marycarmen Rodriguez DO ~ Signed [facility] Work Phone: 1([phone]) 281-735707-27-2025 Radiology [facility]07-27-2025 Radiology [facility]-27-2025 Radiology Diagnostic [facility] 11-26-2024 Radiology Diagnostic [facility]-27-2025 Radiology Diagnostic [facility]07-27-2025 Radiology Diagnostic [facility]07-27-2025 Discharge summary Author Isael Bernabe [facility] Note Date/Time November 26, 2024 9:41 pm [facility] Medical Records Department [address] [place] [address] Emergency Department Summary 11/26/24 MR#: [id number] Acct: [id number] Name: ERIBERTO RICO Rep #:[id number] : [...] presents status post fall with chest heaviness. 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 He was given 1 [place] which he usually takes at home for pain. He was able to ambulate without difficulty. At this point in time, he is motivated for discharge. I do not feel that he requires admission at this time or observation. I feel he can be discharged to follow-upwith his cardiac catheterization tomorrow morning. Patient will continue his Richford at home and follow-up as previously directed. [...] 71.8 H Lymph % (Auto) 16.7 L Lamb % (Auto) 9.5 Eos % (Auto) 1.3 [...] IMPRESSION: No acute intracranial process. Reading Location: [facility] Cervical Spine CT 11/26/24 18:03 IMPRESSION: No acute compression deformity, fracture, or subluxation. Moderate multilevel degenerative changes of the cervical spine. Cervical ACDF with interbody spacers spanning C4-C6 without hardware complications. Reading Location: [facility] Chest X-Ray 11/26/24 18:03 IMPRESSION: Negative for edema Reading Location: [facility] Knee X-Ray 11/26/24 18:03 IMPRESSION: Degenerative changes without fracture Reading Location: [facility] Hand X-Ray 11/26/24 18:07 IMPRESSION: Degenerative changes. No visible fracture. Reading Location: [facility] Knee X-Ray 11/26/24 18:07 IMPRESSION: Joint effusion Reading Location: [facility] Management Discussion w/another healthcare provider: Plant Technical Specialist (Dr. Araujo) Discharge Plan Triage Chief [...] performed tomorrow as scheduled at 8:30 in [facility]. Return with new or worsening symptoms. Print Language: Kyrgyz Disposition Disposition: Home, Self Care What to do if you have Problems For any increased pain, shortness of breath, bleeding, nausea or vomiting, chestpain, or any unexpected problems, contact your Primary Care Provider. Call [facility] ([phone]) or report to the closest Emergency Room. Call 911 if necessary. 11/26/242140 <Electronically signed by Isael Bernbae MD> Cosigner Signature (if applicable): CC: Dr. Marycarmen Rodriguez, DO ~ Signed [facility] Work Phone: 1(767) 890-203007-27-2025 Hospital Discharge instructionsAdditional Instructions Have your cardiac catheterization performed tomorrow as scheduled at 8:30 in the morning. Return with new or worsening symptoms.[facility] Work Phone: 1(609) 611-988707-24-2025 Radiology [facility]07-21-2025 Radiology Diagnostic [facility]05-21-2025 Evaluation note* Diagnosis Onset Date Resolution Status Admit Date COPD (chronic obstructive pulmonary disease) chronic September 20 10:13am Diastolic heart failure chronic [facility] 2024 10:13am Obesity chronic September 20, 2024 10:13am Obstructive sleep apnea [facility] 2024 10:13am Shortness of breath acute October 25, 2024 7:54am Bilateral lower extremity edema medical affairs leader baylee October 25, 2024 7:54am Chest pain chronic October 25 7:54am Chronic kidney disease, stage 3 medical affairs leader baylee October 25, 2024 7:54am Coronary artery disease chronic une 2024 7:54am Essential hypertension chronic 2024 [...] Obstructive sleep apnea chronic J shannon2024 10:00am [facility] Work Phone: 1(363) 277-251105-21-2025 Evaluation note* Diagnosis Onset Date Resolution Status Admit Date COPD (chronic obstructive pulmonary disease) chronic September 20 10:13am Diastolic heart failure chronic M ay 2024 10:13am Obesity chronic September 20, 2024 10:13am Obstructive sleep apnea chronic M ay 2024 10:13am Shortness of breath acute October 25, 2024 7:54am Bilateral lower extremity edema medical affairs leader baylee October 25, 2024 7:54am Chest pain chronic October 25 7:54am Chronic kidney disease, stage 3 medical affairs leader baylee October 25, 2024 7:54am Coronary artery [...] 22, 2024 10:53am Bilateral lower extremity edema medical affairs leader baylee November 22, 2024 10:53am Chest pain chronic November 22 10:53am Chronic kidney disease, stage 3 medical affairs leader baylee November 22, 2024 10:53am Essential hypertension chronic Ju ly 2024 10:53am Hyperlipidemia chronic November 22, 2024 10:53am Obesity chronic November 22 10:53am Type 2 diabetes mellitus wit hout complications chronic November 22, 2024 10:53am [facility] Work Phone: 1([phone]) 290-655705-21-2025 Evaluation note* Diagnosis Onset Date Resolution Status Admit Date COPD (chronic obstructive pulmonary disease) chronic September 20 10:13am Diastolic heart failure chronic M ay 2024 10:13am Obesity chronic September 20, 2024 10:13am Obstructive sleep apnea chronic M ay 2024 10:13am Shortness of breath acute October 25, 2024 7:54am Bilateral lower extremity edema medical affairs leader baylee October 25, 2024 7:54am Chest pain chronic Lara 25[address], 202 5 7:54am Chronic kidney disease, stage 3 medical affairs leader baylee October 25, 2024 7:54am Coronary artery [...] 22, 2024 10:53am Bilateral lower extremity edema medical affairs leader baylee November 22, 2024 10:53am Chest pain chronic November 22 10:53am Chronic kidney disease, stage 3 medical affairs leader baylee November 22, 2024 10:53am Essential hypertension [...] 2024 4:59pm Chronic kidney disease, stage 3 medical affairs leader baylee November 30, 2024 4:59pm Coronary artery disease chronic J shannon 2024 4:59pm Dyslipidemia chronic November 30, 2 025 4:59pm Essential hypertension chronic Ju ly 2024 4:59pm [facility] Work Phone: 1(671) 882-594705-21-2025 Evaluation note* Diagnosis Onset Date Resolution Status [...] Essential hypertension chronic Ju ly 2024 4:59pm [facility] Work Phone: 1(735) 130-157105-21-2025 Evaluation note* Diagnosis Onset Date Resolution Status [...] sleep apnea chronic A ugust 2024 8:29pm [facility] Work Phone: 1(704) 270-692205-21-2025 Evaluation note* Diagnosis Onset Date Resolution Status [...] 10:00am Obstructive sleep apnea chronic J shannon 1st, 2025 10:00am Presence of stent in coronar y [...] 2024 2:01am History of acute inferior wall UT acute December 03, 2024 2:01am Hyponatremia acute [...] 2024 2:01am Coronary artery disease inactive A ugust 2024 2:01am Diabetes mellitus inactive December 03, 2024 2:01am Dyslipidemia inactive December 03, 2024 2:01am [facility] Work Phone: 1(782) 211-952305-21-2025 Evaluation note* Diagnosis Onset Date Resolution Status [...] une 2024 7:54am Essential hypertension inactive Ju 2024 7:54am Chronic kidney disease, stag e [...] 2024 2:01am History of acute inferior wall UT acute December 03, 2024 2:01am Hyponatremia acute [...] 2024 2:01am Coronary artery disease inactive A ugust 2024 2:01am Diabetes mellitus inactive December 03, 2024 2:01am Dyslipidemia inactive December 03, 2024 2:01am Chest pain acute December 07 4:24pm Recent ST elevation myocardial infarction (STEMI) acute 2024 4:24pm Shortness of breath acute 2024 4:24pm [facility] Work Phone: 1(195) 524-955305-21-2025 Evaluation note* Diagnosis Onset Date Resolution Status [...] 2024 2:01am History of acute inferior wall UT acute December 03, 2024 2:01am Hyponatremia acute [...] 4:24pm Shortness of breath acute 2024 4:24pm [facility] Work Phone: 1(520) 586-973305-21-2025 Evaluation note* Diagnosis Onset Date Resolution Status Admit Date COPD (chronic obstructive pulmonary disease) chronic September 20 10:13am Diastolic heart failure chronic 2024 10:13am Obesity chronic September 20, 2024 10:13am Obstructive sleep apnea chronic M 2024 10:13am Bilateral lower extremity edema chronic [...] November 30 4:58pm Leukocytosis resolved November 30 2 025 4:58pm STEMI (ST elevation myocardial infarction) November 30, 2024 resolved October 4:58pm Chronic kidney disease inactive Ju ly 2024 4:58pm Coronary artery disease inactive J shannon 2024 4:58pm Diabetes mellitus inactive November 302024 4:58pm Dyslipidemia inactive November 30 2 025 4:58pm Essential hypertension inactive Ju [...] 2024 2:01am History of acute inferior wall UT inactive December 03, 2024 2:01am DEAN (dyspnea on exertion) resolved December 07, 2024 4:24pm Shortness of breath resolved 2024 4:24pm Chest pain inactive December 07 4:24pm Recent ST elevation myocardial infarction (STEMI) inactive [facility] 2024 4:24pm Presence of stent in coronar y artery Aug, 2022 acute December 12 10:14am Bilateral lower extremity edema chronic December 12 10:14am Hyperlipidemia chronic December 10:14am Obesity chronic December 12 10:14am Type 2 diabetes mellitus without complications chronic December 10:14am Chest pain resolved December 12 025 10:14am Shortness of breath resolved 2024 10:14am Essential hypertension inactive 2024 10:14am Chronic kidney disease, stag e 3 deleted December 12 10:14am [facility] Work Phone: 1([phone]) 847-965905-21-2025 Evaluation note* Diagnosis Onset Date Resolution Status [...] 4:58pm Dyslipidemia inactive November 30, 025 4:58pm Chronic kidney disease, stage 3 [...] 2024 2:01am History of acute inferior wall UT inactive December 03, 2024 2:01am Shortness of [...] 12, 025 10:14am Shortness of breath chronic Decus t 2024 10:14am Type 2 diabetes mellitus without complications chronic December 10:14am Chest pain resolved December 12, 2 025 10:14am Chronic kidney disease, stage 3 deleted December 12 10:14am Central sleep apnea acute Augus t 2024 2:35pm Chest pain acute December [...] diabetes mellitus without complications chronic December 2:35pm [facility] Work Phone: 1(499) 490-765703-18-2025 Procedure notey [facility] Pulmonary Services/Neurology [address] [place] [address] MR#: [id number] Acct: [id number] Name: ERIBERTO RICO Rep #:[id number] : 1945 78 From: Zen East DO Referring Dr: Marni Horn NP BLAST FURNACE OPERATOR-C Status: REG CLI Location: PSN Date: Sex: M C PSN 6 Minute Walk Test 6 Minute Walk Test 6 Minute Walk Test: 6 Minute Walk Test PSN:6-Minute Walk Test Start: 07/18/24 06:38 Freq: Status: Active Protocol: RESP.6MINW Document 07/18/24 06:00 [facility] (Rec: 07/18/24 06:47 [facility] [id number]) 6 Minute Walk Test Date Performed 07/18/24 Time Performed 06:00 Height 5 ft 9 in Weight: 230 lb Weight in Pounds 230.[address]: Marni Horn BLAST FURNACE OPERATOR Assistive device Cane used: Pre-test Oxygen [...] Date Dictated: 07/18/24 1032 Date Transcribed: 07/18/241031 Database Technician: Dr. Zen East, DO Signed [facility]03-03-2025 Evaluation note* Diagnosis Onset Date Resolution Status Admit Date COPD (chronic obstructive pulmonary disease) chronic July 03 1:10pm Diastolic heart failure chronic [facility] 2024 1:10pm Obesity chronic July 03 1:10pm Obstructive sleep apnea [facility] 2024 1:10pm COPD (chronic obstructive pulmonary disease) chronic September 20 10:13am Diastolic heart failure chronic [facility] 2024 10:13am Obesity chronic September 20, 2024 10:13am Obstructive sleep apnea chronic [facility] 2024 10:13am [facility] Work Phone: 1(226) 193-166803-03-2025 Evaluation note* Diagnosis Onset Date Resolution Status Admit Date COPD (chronic obstructive pulmonary disease) chronic July 03 1:10pm Diastolic heart failure chronic [facility] 2024 1:10pm Obesity chronic July 03 1:10pm Obstructive sleep apnea chronic [facility] 2024 1:10pm COPD (chronic obstructive pulmonary disease) chronic September 20 10:13am Diastolic heart failure chronic ay 2024 10:13am Obesity chronic September 20, 2024 10:13am Obstructive sleep apnea chronic [facility] 2024 10:13am DEAN (dyspnea on exertion) acute October 25, 2024 7:54am Shortness of breath acute October 25, 2024 7:54am Bilateral lower extremity edema medical affairs leader baylee October 25, 2024 7:54am Chronic kidney disease, stage 3 medical affairs leader baylee October 25, 2024 7:54am Coronary artery disease chronic J une 2024 7:54am Essential hypertension chronic Ju ne 2024 7:54am Hyperlipidemia chronic October 25, 2024 7:54am Obesity chronic October 25 7:54am Type 2 diabetes mellitus wit hout complications chronic October 25, 2024 7:54am Chest pain inactive October 25 7:54am [facility] Work Phone: 1(842) 255-773703-03-2025 Evaluation note* Diagnosis Onset Date Resolution Status [...] 25, 2024 7:54am Bilateral lower extremity edema medical affairs leader baylee October 25, 2024 7:54am Chest pain chronic October 25 7:54am Chronic kidney disease, stage 3 medical affairs leader baylee October 25, 2024 7:54am Coronary artery disease chronic J une 2024 7:54am Essential hypertension chronic Ju ne 2024 7:54am Hyperlipidemia chronic October 25, 2024 7:54am Obesity chronic October 25 7:54am Type 2 diabetes mellitus wit hout complications chronic October 25, 2024 7:54am [facility] Work Phone: 1(148) 551-796903-03-2025 Evaluation note* Diagnosis Onset Date Resolution Status [...] 25, 2024 7:54am Bilateral lower extremity edema medical affairs leader baylee October 25, 2024 7:54am Chest pain chronic October 25 7:54am Chronic kidney disease, stage 3 medical affairs leader baylee October 25, 2024 7:54am Coronary artery [...] sleep apnea chronic J shannon 2024 10:00am [facility] Work Phone: 1(376) 239-887703-03-2025 Evaluation note* Diagnosis Onset Date Resolution Status [...] 25, 2024 7:54am Bilateral lower extremity edema medical affairs leader baylee October 25, 2024 7:54am Chest pain chronic October 25 7:54am Chronic kidney disease, stage 3 medical affairs leader baylee October 25, 2024 7:54am Coronary artery [...] Obstructive sleep apnea chronic J 2024 10:00am [facility] Work Phone: 1(753) 416-826312-16-2024 Evaluation note* Diagnosis Onset Date Resolution Status Admit Date DEAN (dyspnea on exertion) acute April 17, 2024 3:51pm Bilateral lower extremity edema medical affairs leader baylee April 17, 2024 3:51pm Chronic kidney disease, stage 3 medical affairs leader baylee April 17, 2024 3:51pm Coronary artery [...] sleep apnea chronic M arch 2024 1:10pm [facility] Work Phone: 1(368) 811-974711-18-2024 Evaluation note* Diagnosis Onset Date Resolution Status Admit Date Bilateral lower extremity edema medical affairs leader baylee March 20, 2024 10:31am Chronic kidney disease, stage 3 medical affairs leader baylee March 20, 2024 10:31am Coronary artery disease chronic N ovember 2023 10:31am Essential hypertension chronic No vember 2023 10:31am Hyperlipidemia chronic March 032023 10:31am Obesity chronic March 20, 2024 10:31am Type 2 diabetes mellitus without complications chronic March 032023 10:31am DEAN (dyspnea on exertion) acute April 17, 2024 3:51pm Bilateral lower extremity edema medical affairs leader baylee April 17, 2024 3:51pm Chronic kidney disease, stage 3 medical affairs leader baylee April 17, 2024 3:51pm Coronary artery disease chronic D ecember 2023 3:51pm Essential hypertension chronic De cember 2023 3:51pm Hyperlipidemia chronic April 022023 3:51pm Obesity chronic April 17, 2024 3:51pm Type 2 diabetes mellitus without complications chronic April 022023 3:51pm COPD (chronic obstructive pulmonary disease) chronic July 03 1:10pm Diastolic heart failure chronic 2024 1:10pm Obesity chronic July 03 1:10pm Obstructive sleep apnea chronic 2024 1:10pm [facility] Work Phone: 1(124) 119-822305-02-[address] Hay [facility] September 01, 2022 9:55am Note Date/Time September 01, 2022 8:37am [facility] Medical Records Department [address] [place] [address] Instructions for Home/Discharge Instructions 09/01/22 0835 MR#: [id number] Acct: [id number] Name: ERIBERTO RICO Rep #:[id number] : [...] CC: Dr. Marycarmen Rodriguez DO ~ Signed [facility] Work Phone: 1(190) 182-266508-26-2021 Miscellaneous Notes* Assessment & Plan Note - [...] with any necessary intervention. documented in this [id number] History of Present illness Narrative* Eladio Ingram [...] patient is not nervous/anxious. documented in this [id number] Miscellaneous Notes* Assessment & Plan Note - Fernanda Acuña, ELYSE - 10/09/2020 11:44 AM EDT Associated Problem(s): Coronary artery disease involving cachil dehe coronary artery of cachil dehe heart without angina pectoris Multiple previous cardiac catheterizations with intervention. Most recent cardiac caths were performed in 2018, August 03 at [facility], and August 18 at [facility] in [place]. 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 The notes from the cath at [facility] indicate that they were able to get [...] intolerance, and chest pressure. documented in this [id number] History of Present illness Narrative* Fernanda Acuña CNP - 10/09/2020 11:19 AM EDT [facility] [address] [facility] [address] [facility] [id number] Assessment & Plan: Hypertension Blood pressure mildly [...] without CPAP use. Coronary artery disease involving cachil dehe coronary artery of cachil dehe heart without angina pectoris Multiple previous cardiac catheterizations with intervention. Most recent cardiac caths were performed in 2018, August 03 at [place], and August 18 at [facility] in [place]. 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 The notes from the cath at [facility] indicate that they were able to get [...] re-establish care. He has been following at [facility] and [facility] for his cardiology care over the past 4 years. 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 Eriberto has long-standing coronary artery disease and his history is primarily obtained through records from [facility]. 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 CARDIAC CATHETERIZATION N/A 01/28/2015 Left Heart Cath, EF 60%; Eladio Ingram MD; [facility] [place] AGRICULTURAL SERVICE 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 CARDIAC CATHETERIZATION N/A 06/18/2015 Left Heart Cath, Right Upper Extremity Angiogram, EF 60%; Eladio Ingram MD; [facility] A[employer]ICULTURAL SERVICE WORKER CARDIAC CATHETERIZATION N/A 03/17/2016 Procedure: Left and Right Heart Cath Poss Stent; Surgeon: Eladio Ingram MD; Location: [facility] A[employer]ICULTURAL SERVICE WORKER; Service: CARDIAC CATHETERIZATION 03/22/2014 EF 60% CARDIAC CATHETERIZATION 06/29/2013 EF 60% CARDIAC CATHETERIZATION 09/08/2012 EF 55% CARDIAC CATHETERIZATION 03/22/2014 EF 60% CARDIAC CATHETERIZATION Right 10/15/2016 Procedure: Left Heart Cath Possible PTCA/Stent; Surgeon: Merritt Arthur MD; Location: [facility] CATHLAB; Service: CHOLECYSTECTOMY CORONARY ANGIOPLASTY WITH [...] ectopy, no acute changes. 50 minutes spent [id number] with patient Follow Up Ordered: Return for [...] patient is not nervous/anxious. documented in this [id number] NotePatient Outreach ([facility]) ERIBERTO RICO ([id number]) 1945 M Date Time Provider Department 06/25/20 PETRONA TELLES During your visit today, we recorded the following information about you: Allergies As of Date: 06/25/2020 (No Known Allergies) Date Reviewed: 08/19/2018 Reviewed by: Moise Newby) ALEX Mcgraw - Fully Assessed Order(s):SARS-COVID VACCINE 1ST DOSE APPT [[id number]] Order #: [id number] FUTURE Prescriptions as of 06/25/2020 Sig: CLOPIDOGREL [...] (HCC) [N17.9] 08/15/2018 Coronary artery disease involving cachil dehe smith*08/15/2018 Stented coronary artery [Z95.5] 08/15/2018 Letter Text Encounter Status:Closed by GIANA NAVARRETEUSEErnie on 06/28/20[facility] Consult note Author Jose Hay [facility] Note Date/Time November 30, 2024 4:51 pm [facility] Medical Records Department [address] [place] [address] Consultation - Cardiology 11/30/24 1642 MR#: [id number] Acct: [id number] Name: ERIBERTO RICO Rep #:[id number] : [...] infarction. Subsequently a STEMI alert was called. 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 Marycarmen Rodriguez DO~ Signed [facility] Work Phone: Discharge summary Author Nickie Danielson [facility] Note Date/Time December 02, 2024 2:2 7pm [facility] Medical Records Department [address] [place] [address] Discharge Summary 12/02/24 1336 MR#: [id number] Acct: [id number] Name: ERIBERTO RICO Rep #:[id number] : 1945 79 From: Nickie Danielson DO PCP: Dr. Marycarmen Rodriguez DO Status:ADM IN Location: [place] [id number] Providers Date of Admission: 11/30/24 Date [...] [facility]. [...] inferior wall. He was taken emergency to [facility] and cardiac catheterization revealed subacute stent thrombosis [...] 78.9 H, Lymph % (Auto) 7.6 L, Lamb % (Auto) 12.0 H, Eos % (Auto) [...] abnormality. 2. Age-related senescent changes. Reading Location: [facility] D/C Instructions Discharge Activity: Return to Normal [...] Jeffrey at discharge?: Yes Done w/ Acute UT measure.: Yes Documented LVEF (%): 50 Discharge [...] Self Care Charges/Coding Visit Charges Inpatient E&M: 04889 Disch Hosp >30min 12/02/24 1427 <Electronically signed by Nickie Danielson DO> Cosigner Signature (if applicable): CC: Dr. Jose Hay MD; Dr. Nickie Danielson DO; Dr. Marycarmen Rodriguez DO~ Signed [facility] Work Phone: Discharge summary Author [facility] Note Date/Time December 08, 2024 4:1 2pm [facility] Medical Records Department [address] [place] [address] Transfer to [facility] MR#: [id number] Acct: [id number] Name: ERIBERTO RICO Rep #:[id number] : 1945 79 From: Alex Sanon MD PCP: Dr. Marycarmen Rodriguez DO Status:ADM EDMUND Certification of patient admission REQUIRED AT TIME OF ADMISSION. I CERTIFY THAT POST-HOSPITAL F SERVICES ARE REQUIRED TO BE GIVEN ON AN IN-PATIENT BASIS BECAUSE OF THE ABOVE NAMED PATIENT'S NEED FOR GROUP HOME CARE ON A CONTINUING BASIS FOR THE CONDITION(S) FOR WHICH HE/SHE WAS RECEIVING IN-PATIENT HOSPITAL SERVICES PRIOR TO HIS/HER TRANSFER TO THE [facility]. 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 [...] his ECF 2. Recent acute inferior wall UT ? This was complicated by PLV dissection [...] ? 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 Shaan Santos DO; Dr. Marycarmen Rodriguez DO ~ [facility] Work Phone: Discharge summary Author Marycarmen Marlow [facility] Note Date/Time December 17, 2024 2: 06pm [facility] Medical Records Department [address] [facility] [place] [address] Transfer to [facility] MR#: [id number] Acct: [id number] Name: ERIBERTO RICO Rep #:[id number] : 1945 79 From: Marycarmen Marlow DO PCP: Dr. Marycarmen Rodriguez DO Status:ADM IN Certification of patient admission REQUIRED AT TIME OF ADMISSION. I CERTIFY THAT POST-HOSPITAL ECF SERVICES ARE REQUIRED TO BE GIVEN ON AN IN-PATIENT BASIS BECAUSE OF THE ABOVE NAMED PATIENT'S NEED FOR GROUP HOME CARE ON A CONTINUING BASIS FOR THE CONDITION(S) FOR WHICH HE/SHE WAS RECEIVING IN-PATIENT HOSPITAL SERVICES PRIOR TO HIS/HER TRANSFER TO THE F. 12/17/24 1406<Electronically signed by Marycarmen Marlow DO> [...] multiple medical problems-patient will return to his fpc facility when medically stable #9 acute protein [...] PO BID Qty: 0 0RF Glucerna 1.2 Kenney 0.06-1.2 gram-kcal/mL Liquid 120 ml PO 4X/DAY [...] [Primary Care Provider] - Gustabo Pérez NP, BLAST FURNACE OPERATOR-C [Med Staff - [facility] Practice [facility]] - See Referral Note (In 3 to 4 weeks) Disposition Disposition (needs filled in before D/C Order can be placed): [facility] (6) Diastolic heart failure Qualifiers: Heart failure chronicity: chronic Qualified Code(s): I50.32 - Chronic diastolic (congestive) heart failure 12/17/24 1406 <Electronically signed by Marycarmen Marlow DO> Cosigner Signature (if applicable): CC: Dr. Marycarmen Rodriguez DO; Dr. Ramonita Herron MD; Dr. Sunil Faye MD ~ [facility] Work Phone: Evaluation note* Diagnosis Shortness [...] apnea (adult) (pediatric) Coronary artery disease involving cachil dehe coronary artery of cachil dehe heart without angina pectoris [facility] Diagnosis Essential hypertension- Primary Unspecified essential hypertension 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, unspecified whether cachil dehe or transplanted heart (HCC) Mixed hyperlipidemia [facility] Diagnosis Chest pain, unspecified type- Primary [facility] Diagnosis 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)- Primary [facility] Diagnosis Onset Date Resolution Status Dizziness acute Atherosclerotic heart diseas e cachil dehe coronary artery w/angina pectoris chronic CHF (congestive heart failure) chronic Essential hypertension chron ic History of coronary artery stent placement August 13, 2017 chronic Hyperlipidemia [facility] Work Phone: Evaluation note* Diagnosis Onset Date Resolution Status Dizziness acute Atherosclerotic heart diseas e cachil dehe coronary artery w/angina pectoris chronic CHF (congestive heart failure) chronic Essential hypertension chron ic History of coronary artery stent placement August 13, 2017 chronic Hyperlipidemia chronic Dizziness acute DEAN (dyspnea on exertion) ac solomon Palpitations acute CAD (coronary artery disease) chronic CHF (congestive heart failure) chronic Essential hypertension chron ic Hyperlipidemia [facility] Work Phone: Evaluation note* Diagnosis Onset Date Resolution Status Dizziness acute Atherosclerotic heart diseas e cachil dehe coronary artery w/angina pectoris chronic CHF (congestive heart failure) chronic Essential hypertension chron ic History of coronary artery stent placement August 13, 2017 chronic Hyperlipidemia chronic Dizziness acute DEAN (dyspnea on exertion) ac solomon Palpitations acute CAD (coronary artery disease) chronic CHF (congestive heart failure) chronic Essential hypertension chron ic Hyperlipidemia chronic DEAN (dyspnea on exertion) ac solomon CAD (coronary artery disease) chronic CHF (congestive heart failure) chronic Essential hypertension chron ic Hyperlipidemia [facility] Work Phone: Evaluation note* Diagnosis Onset Date Resolution Status Dizziness acute DEAN (dyspnea on exertion) ac solomon Palpitations acute CAD (coronary artery disease) chronic CHF (congestive heart failure) chronic Essential hypertension chron ic Hyperlipidemia chronic DEAN (dyspnea on exertion) ac solomon CAD (coronary artery disease) chronic CHF (congestive heart failure) chronic Essential hypertension chron ic Hyperlipidemia chronic [facility] Work Phone: Evaluation note* Diagnosis Onset Date Resolution Status Abnormal PFT acute 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.9) medical affairs leader baylee Obstructive sleep apnea medical affairs leader baylee COVID-19 acute DEAN (dyspnea on exertion) ac solomon Atherosclerotic heart diseas e cachil dehe coronary artery w/angina pectoris chronic CHF (congestive heart failure) chronic Essential hypertension chron ic History of coronary artery stent placement August 13, 2017 chronic Hyperlipidemia chronic Abnormal PFT acute COVID-19 acute 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.9) medical affairs leader baylee Obstructive sleep apnea medical affairs leader baylee [facility] Work Phone: Evaluation note* Diagnosis Onset Date Resolution Status COVID-19 acute DEAN (dyspnea on exertion) ac solomon Atherosclerotic heart diseas e cachil dehe coronary artery w/angina pectoris chronic CHF (congestive heart failure) chronic Essential hypertension chron ic History of coronary artery stent placement August 13, 2017 chronic Hyperlipidemia chronic Abnormal PFT acute COVID-19 acute 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.9) medical affairs leader baylee Obstructive sleep apnea medical affairs leader baylee [facility] Work Phone: Evaluation note* Diagnosis Onset Date Resolution Status Angina pectoris chronic Chronic kidney disease chron ic Coronary artery disease medical affairs leader baylee Diabetes mellitus chronic Dyslipidemia chronic Essential hypertension chron ic Obesity [facility] Work Phone: Evaluation note* Diagnosis Onset Date Resolution Status Angina pectoris chronic Chronic kidney disease chron ic Coronary artery disease medical affairs leader baylee Diabetes mellitus chronic Dyslipidemia chronic Essential hypertension chron ic Obesity chronic Left-sided weakness acute Chest pain resolved Fatigue acute Syncope acute Coronary artery disease medical affairs leader baylee Dyslipidemia chronic Essential hypertension chron ic [facility] Work Phone: Evaluation note* Diagnosis Onset Date Resolution Status Left-sided weakness acute Chest pain resolved Fatigue acute Syncope acute Coronary artery disease medical affairs leader baylee Dyslipidemia chronic Essential hypertension chron ic Angina pectoris chronic Bilateral lower extremity edema chronic Chronic kidney disease, stage 3 chronic Coronary artery disease medical affairs leader baylee Essential hypertension chron ic Hyperlipidemia chronic Type 2 diabetes mellitus without complications chronic [facility] Work Phone: Evaluation noteNo assessment information available [facility] Work Phone: History and physical note Author Shaan Santos [facility] Note Date/Time December 07, 2024 4:4 8pm [facility] Medical Records Department [address] [place] [address] H&P Exam - Hospitalist 12/07/24 1633 MR#: [id number] Acct: [id number] Name: ERIBERTO RICO Rep #:[id number] : 1945 79 From: Shaan Santos DO PCP: Dr. Marycarmen Rodriguez, DO Status:ADM EDMUND Location: [place] [address] HPI - General General Date of Service: [...] currently on room air and breathing comfortably. [facility] Medical History Anxiety Depression Diabetes [...] attack) Obstructive sleep apnea 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 Type 2 diabetes [...] PRN Pain 1-1 0/10 10/12/23 Unknown History atorvastatin 40 mg tablet [...] History household members: spouse and none housing: fdc Smoking Status: Former smoker quit date: 05/03/98 [...] 79.0 H, Lymph % (Auto) 7.9 L, Lamb % (Auto) 11.5 H, Eos % (Auto) [...] IMPRESSION: No acute cardiopulmonary process Reading Location: [facility] Assessment & Plan Assessment/Plan (1) Shortness of [...] at bedside. Charges/Coding Visit Charges Inpatient E&M: 18533 Init Hosp L3 12/07/24 1648 <Electronically signed by Shaan Santos DO> Cosigner Signature (if applicable): CC: Dr. Shaan Santos DO; Dr. 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 Follow-up with the cardiology office.[facility] Work Phone: Progress note Author Dr. Hay [facility] September 01, 2022 9:53am Note Date/Time September 01, 2022 9:51am [facility] Medical Records Department [address] [place] [address] Progress Note 09/01/22 0950 MR#: [id number] Acct: [id number] Name: ERIBERTO RICO Rep #:[id number] : 1945 77 From: Jose Hay MD PCP: Dr. Marycarmen Rodriguez, DO Status:ADM EDMUND Location: [place] [address] Progress Note Reports complete resolution of angina. Denies any complaints today. Right groin stable. No hematoma or bruit. Right radial pulse 2+. Mildly decreased platelet count noted. Repeat CBC in 2 days. Also repeat complete metabolic panel in 2 days. Discharge home. Follow-up as outpatient. 09/01/2253 <Electronically signed by Jose Hay MD> Jose Hay MD Cosigner Signature (if applicable): CC: ~ Signed [facility] Work Phone: Reason for referral (narrative)No reason for referral information availableWTriHealth Work Phone: Assessments Diagnosis MATTHEW (obstructive sleep apnea ) - Primary Obstructive sleep apnea (adult) (pediatric) Coronary artery disease invo lving cachil dehe coronary artery of cachil dehe heart without angina pectoris Summary Purpose Family [...] FoundDocuments on File Type Date Recorded Patient Guide Setter Expl anation Advance Directives and Living Will [...] Documents on File Type Date Recorded Patient Guide Setter Expl anation Advance Directives and Livin g Will 10/04/2020 12:00 AM Documents on File Type Date Recorded Patient Guide Setter Expl anation Advance Directives and Living Will [...] Documents on File Type Date Recorded Patient Guide Setter Expl anation Advance Directives and Livin g Will 10/15/2020 12:46 PM Documents on File Type Date Recorded Patient Guide Setter Expl anation Advance Directives and Livin g Will 10/15/2020 12:46 PM Documents on File Type Date Recorded Patient Guide Setter Expl anation Advance Directives and Livin g [...] Date/ Time Advance Directives No August 13, 7:02am Living Will Yes June 10 4:44pm Power of Technical Producer Yes June 10, 2021 4:44pm Advance Directive Response Recorded Date/ Time Name of Medical Power of Technical Producer Jennie- November 16, 2021 1:06pm Advance Directives No August 13, 2 018 7:02am Living Will Yes November 16, 2021 1:06pm Power of Technical Producer Yes November 16 1:06pm Advance Directive Response Recorded Date/ Time Advance Directives No August 13, 2 018 6:02am Living Will Yes November 16, 2021 12:06pm Power of Technical Producer Yes November 16 12:06pm Advance Directive Response Recorded Date/ Time Advance Directives No August 13 018 7:02am Living Will Yes November 16, 2021 1:06pm Power of Technical Producer Yes November 16 1:06pm Advance Directive Response Recorded Date/ Time Advance Directives on File Yes August 312022 7:47am Name of Medical Power of Technical Producer Mike Rico- son August 31, 2022 7:47am Advance Directives Yes August 31, 2022 7:47am Living Will Yes August 31, 2022 7: 47am Power of Technical Producer Yes August 31, 2022 7:47am Advance Directive Response Recorded Date/ Time Advance Directives on File Yes August 312022 7:47am Name of Medical Power of Technical Producer Miek Rico- son August 31, 2022 7:47am Advance Directives Yes August 31, 2022 7:47am Living Will No September 18, 2022 1 2:11am Power of Technical Producer No September 18, 2022 12:11am Advance Directive Response Recorded Date/ Time Advance Directives on File Yes August 312022 7:47am Name of Medical Power of Technical Producer Mike Rico- son August 31, 2022 7:47am Advance Directives on File No Augus t 2022 7:51am Name of Medical Power of Technical Producer MIKE RICO December 21, 2022 7:51am Advance Directives Yes December 21, 2022 7:51am Living Will Yes December 21 7:51am Power of Technical Producer Yes December 21, 023 7:51am Advance Directive Response Recorded Date/ Time Advance Directives on File No Augus t 2022 7:51am Name of Medical Power of Technical Producer MIKE RICO Wedron 21st, 2023 7:51am Advance Directives Yes December 21, 2022 7:51am Living Will Yes December 21 7:51am Power of Technical Producer Yes December 21 7:51am Advance Directive Response Recorded Date/ Time Advance Directives Yes December 21, 2022 6:51am Living Will Yes December 21 6:51am Power of Technical Producer Yes December 21 6:51am Advance Directive Response Recorded Date/ Time Living Will No October 12, 2023 6:54pm Power of Technical Producer No October 11 6:54pm Advance Directives Yes December 21, 2022 7:51am Advance Directive Response Recorded Date/ Time Advance Directives Yes December 21, 2022 7:51am Advance Directive Response Recorded Date/ Time Do you have a Healthcare Power of Technical Producer? Yes November 26, 2024 5:44pm Advance Directives Yes December 21, 2022 7:51am Advance Directive Response Recorded Date/ Time Advance Directives on File Yes November 27, 2024 8:44am Living Will Yes November 27, 2024 8:44am Do you have a Healthcare Pow er of Technical Producer? Yes November 27, 2024 8:44am Name of Medical Power of Technical Producer Jennie Bodag er- spouse November 27, 2024 8:44am Advance Directives Yes November 27 8:44am Do you have a Healthcare Pow er of Technical Producer? Yes November 26, 2024 5:44pm Advance Directive Response Recorded Date/ Time Advance Directives on File Yes November 27, 2024 8:44am Living Will Yes November 27, 2024 8:44am Do you have a Healthcare Pow er of Technical Producer? Yes November 27, 2024 8:44am Name of Medical Power of Technical Producer Jennie Bodag er- spouse November 27, 2024 8:44am Advance Directives Yes November 27 8:44am Do you have a Healthcare Pow er of Technical Producer? Yes November 26, 2024 5:44pm Do you have a Healthcare Pow er of Technical Producer? Yes November 30, 2024 5:22pm Advance Directive Response Recorded Date/ Time Advance Directives on File Yes November 27, 2024 8:44am Living Will Yes November 27, 2024 8:44am Do you have a Healthcare Pow er of Technical Producer? Yes November 27, 2024 8:44am Name of Medical Power of Technical Producer Jennie Agarwal er- spouse November 27, 2024 8:44am Advance Directives Yes November 27 8:44am Do you have a Healthcare Pow er of Technical Producer? Yes November 26, 2024 5:44pm Do you have a Healthcare Pow er of Technical Producer? Yes November 30, 2024 5:22pm Do you have a Healthcare Pow er of Technical Producer? Yes December 02, 2024 8:23pm Advance Directive Response Recorded Date/ Time Advance Directives on File Yes November 27, 2024 8:44am Living Will Yes November 27, 2024 8:44am Do you have a Healthcare Pow er of Technical Producer? Yes November 27, 2024 8:44am Name of Medical Power of Technical Producer Jennie Agarwal er- spouse November 27, 2024 8:44am Advance Directives Yes November 27 8:44am Do you have a Healthcare Pow er of Technical Producer? Yes November 26, 2024 5:44pm Do you have a Healthcare Pow er of Technical Producer? Yes November 30, 2024 5:22pm Do you have a Healthcare Pow er of Technical Producer? Yes December 02, 2024 9:54pm Advance Directive Response Recorded Date/ Time Advance Directives on File Yes November 27, 2024 8:44am Living Will Yes November 27, 2024 8:44am Do you have a Healthcare Pow er of Technical Producer? Yes November 27, 2024 8:44am Name of Medical Power of Technical Producer Jennie Agarwal er- spouse November 27, 2024 8:44am Advance Directives Yes November 27 8:44am Do you have a Healthcare Pow er of Technical Producer? Yes November 26, 2024 5:44pm Do you have a Healthcare Pow er of Technical Producer? Yes November 30, 2024 5:22pm Do you have a Healthcare Pow er of Technical Producer? Yes December 02, 2024 9:54pm Do you have a Healthcare Pow er of Technical Producer? Yes December 07, 2024 11:09am Advance Directive Response Recorded Date/ Time Advance Directives on File Yes November 27, 2024 8:44am Living Will Yes November 27, 2024 8:44am Do you have a Healthcare Pow er of Technical Producer? Yes November 27, 2024 8:44am Name of Medical Power of Technical Producer Jennie Agarwal er- spouse November 27, 2024 8:44am Advance Directives Yes November 27 8:44am Do you have a Healthcare Pow er of Technical Producer? Yes November 26, 2024 5:44pm Do you have a Healthcare Pow er of Technical Producer? Yes November 30, 2024 5:22pm Do you have a Healthcare Pow er of Technical Producer? Yes December 02, 2024 9:54pm Do you have a Healthcare Pow er of Technical Producer? Yes December 07, 2024 5:33pm Advance Directive Response Recorded Date/ Time Advance Directives on File Yes November 27, 2024 8:44am Living Will Yes November 27, 2024 8:44am Do you have a Healthcare Pow er of Technical Producer? Yes November 27, 2024 8:44am Name of Medical Power of Technical Producer Jennie Agarwal er- spouse November 27, 2024 8:44am Advance Directives Yes November 27 8:44am Do you have a Healthcare Pow er of Technical Producer? Yes December 15, 2024 3:01pm Do you have a Healthcare Pow er of Technical Producer? Yes November 26, 2024 5:44pm Do you have a Healthcare Pow er of Technical Producer? Yes November 30, 2024 5:22pm Do you have a Healthcare Pow er of Technical Producer? Yes December 02, 2024 9:54pm Do you have a Healthcare Pow er of Technical Producer? Yes December 07, 2024 5:33pm Reason for Referral Status Reason Specialty Diagnoses / Procedures Referred By Contact Referred To Contact New Request Cardiology Diagnoses Shortness of breath Procedures Echocardiogram complete Eladio Ingram MD [address] [place] [address] Status Reason Specialty Diagnoses / Procedures Referred By Contact Referred To Contact Closed Cardiology Diagnoses DEAN (dyspnea on exertion) Procedures ECG 12 lead Fernanda Acuña, MAINTENANCE ADVISOR [address] [place] [address] Specialty Diagnoses / Procedures Referred By Contac t Referred To Contact Radiology Diagnoses 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 CHF (congestive heart failure) Essential hypertension History of coronary artery stent placement Hyperlipidemia Dizziness DEAN (dyspnea on exertion) Palpitations CAD (coronary artery disease) CHF (congestive heart failure) Essential hypertension Hyperlipidemia Chief Complaint OVERDUE FOR OV CHEST PAIN CHEST PAIN 6-8 WK F/U DYSPNEA Reason for Visit Dizziness 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 CHF (congestive heart failure) Essential hypertension History of coronary artery stent placement Hyperlipidemia Dizziness DEAN (dyspnea on exertion) Palpitations CAD (coronary artery disease) CHF (congestive heart failure) Essential hypertension Hyperlipidemia Chief Complaint OVERDUE FOR OV CHEST PAIN CHEST PAIN 6-8 WK F/U DYSPNEA CHEST PAIN 2 M FU E ORDERS Reason for Visit Dizziness 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 CHF (congestive heart [...] DEAN (dyspnea on exertion) 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 E-ORDER SYNCOPE Reason for Visit Angina pectoris Chronic kidney disease Coronary artery disease Diabetes mellitus Dyslipidemia Essential hypertension Obesity Left-sided weakness Chest pain Fatigue Syncope Coronary artery disease Dyslipidemia Essential hypertension Chief Complaint CAD Amb Documentation EKG Coronary artery disease Amb Documentation CVA, CP CVA, CP CP ADMIT CVA, CP CVA, CP CVA, CP CVA, CP request by BLAST FURNACE OPERATOR at [place] for angina L.L. E-ORDER SYNCOPE 2 M [...] CP CVA, CP CVA, CP request by BLAST FURNACE OPERATOR at [place] for angina L.L. E-ORDER SYNCOPE 2 M [...] FU April 17, 2024 3:51pm F/U per [facility] July 03, 2024 1:10 pm MATTHEW, [...] 6:23am R06.00 - Dyspnea, unspecified July 10:32am MATTEHW August 03, 2024 11:4 2am 3 M [...] 03 2:01am History of acute inferior wall UT December 03, 2024 2:01am Hyponatremia December 03, [...] 03 2:01am History of acute inferior wall UT December 03, 2024 2:01am Hyponatremia December 03, [...] 03 2:01am History of acute inferior wall UT December 03, 2024 2:01am Hyponatremia December 03, [...] 0:00am Presence of stent in coronary artery Oct 10:53am Bilateral lower extremity edema October 10:53am [...] 2:0 1am History of acute inferior wall UT December 03, 2024 2:01am DEAN (dyspnea on exertion) Wedron 7th, 20 25 4:24pm Shortness of breath December 07, 2024 4:2 4pm Chest pain December 07, 2024 4:[address] elevation myocardial infarctio n (STEMI) December 07, 2024 4:24pm Presence of stent in coronary artery Aug us2024 10:14am Bilateral lower extremity edema December [...] 2:0 1am History of acute inferior wall UT Wedron 3rd, 2025 2:01am Shortness of breath December 07, 2024 [...] section and content) DATE CREATED AUTHOR 09/24/2018 [facility] DATE CREATED AUTHOR AUTHOR'S ORGANIZ ATION 12/20/2020 [facility] DATE CREATED AUTHOR AUTHOR'S ORGANIZ ATION 01/11/2021 [facility] DATE CREATED AUTHOR AUTHOR'S ORGANIZ ATION 02/28/2021 [facility] DATE CREATED AUTHOR AUTHOR'S ORGANIZ ATION 04/20/2021 [facility] DATE CREATED AUTHOR AUTHOR'S ORGANIZ ATION 06/22/2021 [facility] DATE CREATED AUTHOR AUTHOR'S ORGANIZ ATION 12/21/2024 [facility] Reason for Visit (unrecogniz ed section and content) Reason Comments Chest Pain SOB Status Reason Specialty Diagnoses / Procedures Referred By Contact Referred To Contact Closed Cardiology Diagnoses DEAN (dyspnea on exertion) Procedures ECG 12 lead Fernanda Acuña, MAINTENANCE ADVISOR [address] [place] [address] Status Reason Specialty Diagnoses / Procedures Referre d By Contact Referred To Contact Closed Cardiology Diagnoses Shortness of breath Procedures Echocardiogram complete w contrast Echocardiogram complete Eladio Ingram MD [address] [facility] [address] [place] [address] Reason Comments Initial Visit (Intake) Specialty Diagnoses / Procedures Referred By Contac t Referred To Contact Cardiology Diagnoses 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, unspecified whether cachil dehe or transplanted heart (HCC) [place] [address] [place] [id number] Referral ID Status Reason Start Date Expiration Date V isits Requested Visits Authorized [id number] Closed Specialty Services Required/Krupa ent's Best Interest 10/04/2020 10/04/2021 1 1 Care Teams (unrecognized sec tion and content) Netting Weaver Relationship Specialty Start Date End Date Marycarmen Rodriguez DO [address] [place] [address] PCP - General Family Medicine 12/17/16 Netting Weaver Relationship Specialty Start Date End Date Marycarmen Rodriguez DO [address] [place], [place] [id number] PCP - General Family Medicine 12/17/16 Netting Weaver Relationship Specialty Start Date End Date Marycarmen Rodriguez DO [address] [place], [place] [id number] PCP - General Family Medicine 12/17/16 Netting Weaver Relationship Specialty Start Date End Date Marycarmen Rodriguez DO [address] [place] [id number] PCP - General Family Medicine 12/17/16 Team Status: Active Member Role Status Dates Dr. Marycarmen Rodriguez DO Family Provider Active Marycarmen Rodriguez Primary Care Provider Active Team Status: Inactive Member Role Status Dates Dr. Marycarmen Rodriguez DO Primary Care Provider, Referrin g Provider Active Luz Elena Mckeon BLAST FURNACE OPERATOR, BLAST FURNACE OPERATOR-C Attending Provider Active Team Status: Inactive [...] Primary Care Provider Active Luz Elena Mckeon BLAST FURNACE OPERATOR, BLAST FURNACE OPERATOR-C Attending Provider Active Team Status: Inactive Member Role Status Dates Dr. Marycarmen Rodriguez DO Primary Care Provider Active Luz Elena Mckeon BLAST FURNACE OPERATOR, BLAST FURNACE OPERATOR-C Attending Provider, Referring P rovider Active Team [...] Primary Care Provider Active Luz Elena Mckeon BLAST FURNACE OPERATOR, BLAST FURNACE OPERATOR-C Attending Provider, Referring P sharon Active [...] Primary Care Provider Active Luz Elena Mckeon BLAST FURNACE OPERATOR, BLAST FURNACE OPERATOR-C Attending Provider Active Team Status: Inactive Member Role Status Dates Dr. Marycramen Rodriguez DO Primary Care Provider, Attendin g [...] 2024 End: April 17, 2024 Gustabo Pérez BLAST FURNACE OPERATOR, BLAST FURNACE OPERATOR-C Attending Provider Active S tart: April 17, 2024 End: April 17, 2024 Team Status: Inactive Member Role Status Dates Dr. Marycarmen Rodriguez DO Primary Care Provider Active Start: April 17, 2024 End: April 17, 2024 Gustabo Pérez BLAST FURNACE OPERATOR, BLAST FURNACE OPERATOR-C Attending Provider Active S tart: April 17, 2024 End: April 17, 2024 Gustabo H Roof BLAST FURNACE OPERATOR, BLAST FURNACE OPERATOR-C Referring Provider Active S tart: April 17, 2024 End: April 17, 2024 Team Status: Inactive Member Role Status Dates Dr. Marycarmen Rodriguez DO Primary Care Provider Active Start: June 30, 2024 End: June 30, 2024 Dr. Marycarmen Rodriguez DO Attending Provider Active Start: June 30, 2024 End: June 30, 2024 Team Status: Inactive Member Role Status Dates Dr. Marycamren Rodriguez DO Primary Care Provider Active Start: July 03, 2024 End: July 03, 2024 Dr. Marycarmen Rodriguez DO Referring Provider Active Start: July 03, 2024 End: July 03, 2024 Marni Horn BLAST FURNACE OPERATOR, BLAST FURNACE OPERATOR-C Attending Provider Active Start: July 03, 2024 End: July 03, 2024 Team Status: Active Member Role Status Dates Dr. Marycarmen Rodriguez DO Primary Care Provider Active Start: July 07, 2024 Marni Horn BLAST FURNACE OPERATOR, BLAST FURNACE OPERATOR-C Attending Provider Active Start: July 07, 2024 Marni Horn BLAST FURNACE OPERATOR, BLAST FURNACE OPERATOR-C Referring Provider Active Start: July 07, 2024 Team Status: Inactive Member Role Status Dates Dr. Marycarmen Rodriguez DO Primary Care Provider Active Start: July 07, 2024 End: July 07, 2024 Marni Horn BLAST FURNACE OPERATOR, BLAST FURNACE OPERATOR-C Attending Provider Active Start: July 07, 2024 End: July 07, 2024 Marni Horn BLAST FURNACE OPERATOR, BLAST FURNACE OPERATOR-C Referring Provider Active Start: July 07, 2024 End: July 07, 2024 Team Status: Active Member Role Status Dates Dr. Marycarmen Rodriguez DO Primary Care Provider Active Start: July 17, 2024 Marni Horn BLAST FURNACE OPERATOR, BLAST FURNACE OPERATOR-C Attending Provider Active Start: July 17, 2024 Marni Horn BLAST FURNACE OPERATOR, BLAST FURNACE OPERATOR-C Referring Provider Active Start: July 17, 2024 Team Status: Active Member Role Status Dates Dr. Marycarmen Rodriguez DO Primary Care Provider Active Start: July 18, 2024 Marni Horn BLAST FURNACE OPERATOR, BLAST FURNACE OPERATOR-C Attending Provider Active Start: July 18, 2024 Marni Horn BLAST FURNACE OPERATOR, BLAST FURNACE OPERATOR-C Referring Provider Active Start: July 18, 2024 Team Status: Active Member Role Status Dates Dr. Marycarmen Rodriguez DO Primary Care Provider Active Start: July 18, 2024 Marni Horn BLAST FURNACE OPERATOR, BLAST FURNACE OPERATOR-C Referring Provider Active Start: July 18, 2024 Marni Horn BLAST FURNACE OPERATOR, BLAST FURNACE OPERATOR-C Other Provider Active Start: July 18, 2024 Dr. Zen East , Attending Provider Active S tart: July 18, 2024 Team Status: Inactive Member Role Status Dates Dr. Marycarmen Rodriguez DO Primary Care Provider Active Start: July 17, 2024 End: July 17, 2024 Marni Horn BLAST FURNACE OPERATOR, BLAST FURNACE OPERATOR-C Attending Provider Active Start: July 17, 2024 End: July 17, 2024 Marni Horn BLAST FURNACE OPERATOR, BLAST FURNACE OPERATOR-C Referring Provider Active Start: July 17, 2024 End: July 17, 2024 Team Status: Inactive Member Role Status Dates Dr. Marycamren Rodriguez DO Primary Care Provider Active Start: July 18, 2024 End: July 18, 2024 Marni Horn BLAST FURNACE OPERATOR, BLAST FURNACE OPERATOR-C Attending Provider Active Start: July 18, 2024 End: July 18, 2024 Marni Horn BLAST FURNACE OPERATOR, BLAST FURNACE OPERATOR-C Referring Provider Active Start: July 18, 2024 End: July 18, 2024 Team Status: Inactive Member Role Status Dates Dr. Marycarmen Rodriguez DO Primary Care Provider Active Start: August 03, 2024 End: August 03, 2024 Marni oHrn BLAST FURNACE OPERATOR, BLAST FURNACE OPERATOR-C Attending Provider Active Start: August 03, 2024 End: August 03, 2024 Marni Horn BLAST FURNACE OPERATOR, BLAST FURNACE OPERATOR-C Referring Provider Active Start: August 03, [...] Active Start: September 22, 2024 Marni Horn BLAST FURNACE OPERATOR, BLAST FURNACE OPERATOR-C Attending Provider Active Start: September 22, 2024 Team Status: Inactive Member Role Status Dates Dr. Marycarmen Rodriguez DO Primary Care Provider Active Start: September 22, 2024 End: September 22, 2024 Marni Horn BLAST FURNACE OPERATOR, BLAST FURNACE OPERATOR-C Attending Provider Active Start: September 22, [...] S tart: July 17, 2024 Marni Horn BLAST FURNACE OPERATOR, BLAST FURNACE OPERATOR-C Referring Provider Active Start: July 17, 2024 Team Status: Inactive Member Role Status Dates Dr. Marycarmen Rodriguez DO Primary Care Provider Active Start: October 18, 2024 End: October 18, 2024 Dr. Brooks Carpenter MD Attending Provider Active Start: October 18, 2024 End: October 18, 2024 Dr. Brooks Carpenter MD Referring Provider Active Start: October 18, 2024 End: October 18, 2024 Gustabo Pérez BLAST FURNACE OPERATOR, BLAST FURNACE OPERATOR-C Other Provider Active Start : October 18, 2024 End: October 18, 2024 Team Status: Active Member Role Status Dates Dr. Marycarmen Rodriguez DO Primary Care Provider Active Start: October 18, 2024 Marni Horn BLAST FURNACE OPERATOR, BLAST FURNACE OPERATOR-C Attending Provider Active Start: October 18, 2024 Team Status: Inactive Member Role Status Dates Dr. Marycarmen Rodriguez DO Primary Care Provider Active Start: October 25, 2024 End: October 25, 2024 Dr. Marycarmen Rodriguez DO Referring Provider Active Start: October 25, 2024 End: October 25, 2024 Gustabo Pérez BLAST FURNACE OPERATOR, BLAST FURNACE OPERATOR-C Attending Provider Active S tart: October 25, 2024 End: October 25, 2024 Team Status: Inactive Member Role Status Dates Dr. Marycarmen Rodriguez DO Primary Care Provider Active Start: October 18, 2024 End: October 18, 2024 Marni Horn BLAST FURNACE OPERATOR, BLAST FURNACE OPERATOR-C Attending Provider Active Start: October 18, [...] 2024 End: July 03, 2024 Marni Horn BLAST FURNACE OPERATOR, BLAST FURNACE OPERATOR-C Attending Provider Active Start: July 03, 2024 End: July 03, 2024 Team Status: Inactive Member Role/Relationship Status Dates Dr. Marycarmen Rodriguez DO Primary Care Provider Active Start: July 07, 2024 End: July 07, 2024 Marni Horn BLAST FURNACE OPERATOR, BLAST FURNACE OPERATOR-C Attending Provider Active Start: July 07, 2024 End: July 07, 2024 Marni Horn BLAST FURNACE OPERATOR, BLAST FURNACE OPERATOR-C Referring Provider Active Start: July 07, 2024 End: July 07, 2024 Team Status: Inactive Member Role/Relationship Status Dates Dr. Marycarmen Rodriguez DO Primary Care Provider Active Start: July 17, 2024 End: July 17, 2024 Marni Horn BLAST FURNACE OPERATOR, BLAST FURNACE OPERATOR-C Attending Provider Active Start: July 17, 2024 End: July 17, 2024 Marni Horn BLAST FURNACE OPERATOR, BLAST FURNACE OPERATOR-C Referring Provider Active Start: July 17, 2024 End: July 17, 2024 Team Status: Active Member Role/Relationship Status Dates Dr. Marycarmen Rodriguez DO Primary Care Provider Active Start: July 17, 2024 Dr. Zen East DO Attending Provider Active S tart: July 17, 2024 Marni Horn BLAST FURNACE OPERATOR, BLAST FURNACE OPERATOR-C Referring Provider Active Start: July 17, 2024 Team Status: Inactive Member Role/Relationship Status Dates Dr. Marycarmen Rodriguez DO Primary Care Provider Active Start: July 18, 2024 End: July 18, 2024 Marni Horn BLAST FURNACE OPERATOR, BLAST FURNACE OPERATOR-C Attending Provider Active Start: July 18, 2024 End: July 18, 2024 Marni Horn BLAST FURNACE OPERATOR, BLAST FURNACE OPERATOR-C Referring Provider Active Start: July 18, 2024 End: July 18, 2024 Team Status: Active Member Role/Relationship Status Dates Dr. Marycarmen Rodriguez DO Primary Care Provider Active Start: July 18, 2024 Marni Horn BLAST FURNACE OPERATOR, BLAST FURNACE OPERATOR-C Referring Provider Active Start: July 18, 2024 Marni Horn BLAST FURNACE OPERATOR, BLAST FURNACE OPERATOR-C Other Provider Active Start: July 18, 2024 Dr. Zen East DO Attending Provider Active S tart: July 18, 2024 Team Status: Inactive Member Role/Relationship Status Dates Dr. Marycarmen Rodriguez DO Primary Care Provider Active Start: August 03, 2024 End: August 03, 2024 Marni Horn BLAST FURNACE OPERATOR, BLAST FURNACE OPERATOR-C Attending Provider Active Start: August 03, 2024 End: August 03, 2024 Marni Horn BLAST FURNACE OPERATOR, BLAST FURNACE OPERATOR-C Referring Provider Active Start: August 03, [...] 2024 End: September 20, 2024 Maren Olivas BLAST FURNACE OPERATOR-C Referring Provider Active Start: September 20, 2024 End: September 20, 2024 Team Status: Inactive Member Role/Relationship Status Dates Dr. Marycarmen Rodriguez DO Primary Care Provider Active Start: September 22, 2024 End: September 22, 2024 Marni Horn BLAST FURNACE OPERATOR, BLAST FURNACE OPERATOR-C Attending Provider Active Start: September 22, [...] 2024 End: October 18, 2024 Gustabo Pérez BLAST FURNACE OPERATOR, BLAST FURNACE OPERATOR-C Other Provider Active Start : October 18, 2024 End: October 18, 2024 Team Status: Inactive Member Role/Relationship Status Dates Dr. Marycarmen Rodriguez DO Primary Care Provider Active Start: October 18, 2024 End: October 18, 2024 Marni Horn BLAST FURNACE OPERATOR, BLAST FURNACE OPERATOR-C Attending Provider Active Start: October 18, 2024 End: October 18, 2024 Team Status: Inactive Member Role/Relationship Status Dates Dr. Marycarmen Rodriguez DO Primary Care Provider Active Start: October 25, 2024 End: October 25, 2024 Dr. Marycarmen Rodriguez DO Referring Provider Active Start: October 25, 2024 End: October 25, 2024 Gustabo Pérez BLAST FURNACE OPERATOR, BLAST FURNACE OPERATOR-C Attending Provider Active S tart: October 25, 2024 End: October 25, 2024 Team Status: Active Member Role/Relationship Status Dates Dr. Marycarmen Rodriguez DO Primary Care Provider Active Start: October 26, 2024 Marni Horn BLAST FURNACE OPERATOR, BLAST FURNACE OPERATOR-C Attending Provider Active Start: October 26, 2024 Marni Horn NP, BLAST FURNACE OPERATOR-C Referring Provider Active Start: October 26, [...] 2024 End: October 26, 2024 Marni Horn BLAST FURNACE OPERATOR, BLAST FURNACE OPERATOR-C Attending Provider Active Start: October 26, 2024 End: October 26, 2024 Marni Horn BLAST FURNACE OPERATOR, BLAST FURNACE OPERATOR-C Referring Provider Active Start: October 26, 2024 End: October 26, 2024 Team Status: Inactive Member Role/Relationship Status Dates Dr. Marycarmen Rodriguez DO Primary Care Provider Active Start: August 03, 2024 End: August 03, 2024 Marni Horn BLAST FURNACE OPERATOR, BLAST FURNACE OPERATOR-C Attending Provider Active Start: August 03, 2024 End: August 03, 2024 Marni Horn BLAST FURNACE OPERATOR, BLAST FURNACE OPERATOR-C Referring Provider Active Start: August 03, [...] End: September 22, 2024 Marni Horn NP, BLAST FURNACE OPERATOR-C Attending Provider Active Start: September 22, [...] 2024 End: October 18, 2024 Gustabo Pérez BLAST FURNACE OPERATOR, BLAST FURNACE OPERATOR-C Other Provider Active Start : October 18, 2024 End: October 18, 2024 Team Status: Inactive Member Role/Relationship Status Dates Dr. Marycarmen Rodriguez DO Primary Care Provider Active Start: October 18, 2024 End: October 18, 2024 Marni Horn BLAST FURNACE OPERATOR, BLAST FURNACE OPERATOR-C Attending Provider Active Start: October 18, 2024 End: October 18, 2024 Team Status: Inactive Member Role/Relationship Status Dates Dr. Marycarmen Rodriguez DO Primary Care Provider Active Start: October 25, 2024 End: October 25, 2024 Dr. Marycarmen Rodriguez DO Referring Provider Active Start: October 25, 2024 End: October 25, 2024 Gustabo Pérez BLAST FURNACE OPERATOR, BLAST FURNACE OPERATOR-C Attending Provider Active S tart: October 25, 2024 End: October 25, 2024 Team Status: Inactive Member Role/Relationship Status Dates Dr. Marycarmen Rodriguez DO Primary Care Provider Active Start: October 26, 2024 End: October 26, 2024 Marni Horn BLAST FURNACE OPERATOR, BLAST FURNACE OPERATOR-C Attending Provider Active Start: October 26, 2024 End: October 26, 2024 Marni Horn BLAST FURNACE OPERATOR, BLAST FURNACE OPERATOR-C Referring Provider Active Start: October 26, [...] Provider Active Start: November 10, 2024 Gustabo H Roof BLAST FURNACE OPERATOR, BLAST FURNACE OPERATOR-C Attending Provider Active S tart: November 10, 2024 Gustabo H Roof BLAST FURNACE OPERATOR, BLAST FURNACE OPERATOR-C Referring Provider Active S tart: November 10, 2024 Team Status: Active Member Role/Relationship Status Dates Dr. Marycarmen Rodriguez DO Primary Care Provider Active Start: November 10, 2024 Dr. Lance Rodriguez MD Attending Provider Active S tart: November 10, 2024 Gustabo H Roof BLAST FURNACE OPERATOR, BLAST FURNACE OPERATOR-C Referring Provider Active S tart: November 10, 2024 Team Status: Active Member Role/Relationship Status Dates Dr. Marycarmen Rodriguez DO Primary Care Provider Active Start: November 10, 2024 Maren Olivas BLAST FURNACE OPERATOR-C Attending Provider Active Start: November 10, 2024 Maren Olivas BLAST FURNACE OPERATOR-C Referring Provider Active Start: November 10, 2024 Team Status: Active Member Role/Relationship Status Dates Dr. Marycarmen Rodriguez DO Primary Care Provider Active Start: November 13, 2024 Gustabo H Roof BLAST FURNACE OPERATOR, BLAST FURNACE OPERATOR-C Referring Provider Active S tart: November 13, 2024 Gustabo H Roof BLAST FURNACE OPERATOR, BLAST FURNACE OPERATOR-C Other Provider Active Start : November 13, 2024 Dr. Jose Hay MD Attending Provider Active Start: November 13, 2024 Team Status: Inactive Member Role/Relationship Status Dates Dr. Marycarmen Rodriguez DO Primary Care Provider Active Start: November 10, 2024 End: November 10, 2024 Gustabo H Roof BLAST FURNACE OPERATOR, BLAST FURNACE OPERATOR-C Attending Provider Active S tart: November 10, 2024 End: November 10, 2024 Gustabo H Roof BLAST FURNACE OPERATOR, BLAST FURNACE OPERATOR-C Referring Provider Active S tart: November 10, 2024 End: November 10, 2024 Team Status: Inactive Member Role/Relationship Status Dates Dr. Marycarmen Rodriguez DO Primary Care Provider Active Start: November 10, 2024 End: November 10, 2024 Maren Olivas BLAST FURNACE OPERATOR-C Attending Provider Active Start: November 10, 2024 End: November 10, 2024 Maren Olivas BLAST FURNACE OPERATOR-C Referring Provider Active Start: November 10, 2024 [...] 2024 End: November 22, 2024 Gustabo Pérez BLAST FURNACE OPERATOR, BLAST FURNACE OPERATOR-C Attending Provider Active S tart: November 22, [...] Active Start: November 22, 2024 Gustabo Pérez BLAST FURNACE OPERATOR, BLAST FURNACE OPERATOR-C Attending Provider Active S tart: November 22, 2024 Gustabo Pérez BLAST FURNACE OPERATOR, BLAST FURNACE OPERATOR-C Referring Provider Active S tart: November 22, [...] 2024 End: November 22, 2024 Gustabo Pérez BLAST FURNACE OPERATOR, BLAST FURNACE OPERATOR-C Attending Provider Active S tart: November 22, 2024 End: November 22, 2024 Gustabo Pérez BLAST FURNACE OPERATOR, BLAST FURNACE OPERATOR-C Referring Provider Active S tart: November 22, [...] 2024 End: September 22, 2024 Marni Horn BLAST FURNACE OPERATOR, BLAST FURNACE OPERATOR-C Attending Provider Active Start: September 22, [...] End: October 18, 2024 Gustabo Pérez NP, BLAST FURNACE OPERATOR-C Other Provider Active Start : October 18, 2024 End: October 18, 2024 Team Status: Inactive Member Role/Relationship Status Dates Dr. Marycarmen Rodriguez DO Primary Care Provider Active Start: October 18, 2024 End: October 18, 2024 Marni Horn BLAST FURNACE OPERATOR, BLAST FURNACE OPERATOR-C Attending Provider Active Start: October 18, 2024 End: October 18, 2024 Team Status: Inactive Member Role/Relationship Status Dates Dr. Marycarmen Rodriguez DO Primary Care Provider Active Start: October 25, 2024 End: October 25, 2024 Dr. Marycarmen Rodriguez DO Referring Provider Active Start: October 25, 2024 End: October 25, 2024 Gustabo Pérez NP, BLAST FURNACE OPERATOR-C Attending Provider Active S tart: October 25, 2024 End: October 25, 2024 Team Status: Inactive Member Role/Relationship Status Dates Dr. Marycarmen Rodriguez DO Primary Care Provider Active Start: October 26, 2024 End: October 26, 2024 Marni Horn BLAST FURNACE OPERATOR, BLAST FURNACE OPERATOR-C Attending Provider Active Start: October 26, 2024 End: October 26, 2024 Marni Horn BLAST FURNACE OPERATOR, BLAST FURNACE OPERATOR-C Referring Provider Active Start: October 26, [...] 2024 End: November 10, 2024 Gustabo Pérez BLAST FURNACE OPERATOR, BLAST FURNACE OPERATOR-C Attending Provider Active S tart: November 10, 2024 End: November 10, 2024 Gustabo Pérez BLAST FURNACE OPERATOR, BLAST FURNACE OPERATOR-C Referring Provider Active S tart: November 10, 2024 End: November 10, 2024 Team Status: Active Member Role/Relationship Status Dates Dr. Marycarmen Rodriguez DO Primary Care Provider Active Start: November 10, 2024 Dr. Lance Rodriguez MD Attending Provider Active S tart: November 10, 2024 Gustabo Pérez BLAST FURNACE OPERATOR, BLAST FURNACE OPERATOR-C Referring Provider Active S tart: November 10, 2024 Team Status: Inactive Member Role/Relationship Status Dates Dr. Marycarmen Rodriguez DO Primary Care Provider Active Start: November 10, 2024 End: November 10, 2024 Maren Olivas NP-C Attending Provider Active Start: November 10, 2024 End: November 10, 2024 Maren M Rufener , BLAST FURNACE OPERATOR-C Referring Provider Active Start: November 10, 2024 End: November 10, 2024 Team Status: Active Member Role/Relationship Status Dates Dr. Marycarmen Rodriguez DO Primary Care Provider Active Start: November 13, 2024 Gustabo Pérez BLAST FURNACE OPERATOR, BLAST FURNACE OPERATOR-C Referring Provider Active S tart: November 13, 2024 Gustabo Pérez BLAST FURNACE OPERATOR, BLAST FURNACE OPERATOR-C Other Provider Active Start : November 13, [...] 2024 End: November 22, 2024 Gustabo Pérez BLAST FURNACE OPERATOR, BLAST FURNACE OPERATOR-C Attending Provider Active S tart: November 22, 2024 End: November 22, 2024 Team Status: Inactive Member Role/Relationship Status Dates Dr. Marycarmen Rodriguez DO Primary Care Provider Active Start: November 22, 2024 End: November 22, 2024 Gustabo Pérez BLAST FURNACE OPERATOR, BLAST FURNACE OPERATOR-C Attending Provider Active S tart: November 22, 2024 End: November 22, 2024 Gustabo Pérez BLAST FURNACE OPERATOR, BLAST FURNACE OPERATOR-C Referring Provider Active S tart: November 22, [...] Status: Active Member Role/Relationship Status Dates Dr. Marycarmne Rodriguez [...] Star t: December 03, 2024 Dr. Marcin rAaujo MD Attending Provider Active S tart: December [...] rt: December 06, 2024 Dr. Abraham Ridley , DO Admit Provider Active Start: December 06, 2024 Dr. Abraham Ridley , DO Other Provider Active Start: December 06, [...] 2024 End: December 12, 2024 Gustabo Pérez BLAST FURNACE OPERATOR, BLAST FURNACE OPERATOR-C Attending Provider Active S tart: December 12, [...] Active Start: December 12, 2024 Gustabo Pérez BLAST FURNACE OPERATOR, BLAST FURNACE OPERATOR-C Attending Provider Active S tart: December 12, 2024 Gustabo Pérez BLAST FURNACE OPERATOR, BLAST FURNACE OPERATOR-C Referring Provider Active S tart: December 12, [...] 2024 End: December 12, 2024 Gustabo Pérez BLAST FURNACE OPERATOR, BLAST FURNACE OPERATOR-C Attending Provider Active S tart: December 12, 2024 End: December 12, 2024 Gustabo Pérez BLAST FURNACE OPERATOR, BLAST FURNACE OPERATOR-C Referring Provider Active S tart: December 12, [...] BE BASED ON THE PRIMARY CLINICAL RECORDS. [facility]. provides no warranty or guarantee of the accuracy or completeness of information in this document.
[2024-12-24 02:38] LABS: Magnesium 1.7 mg/dL (1.5-2.2)
[2024-12-24] MEDS: 0.9% Normal Saline (1000mL) 1,000 ML 100 ML IV (03:37)
[2024-12-24] MEDS: Pantoprazole Sodium 80 MG in 0.9% Normal Saline (50mL Bag) 15 ML 420 MG IV BOLUS (03:45)
[2024-12-24] MEDS: Pantoprazole Sodium 80 MG in 0.9% Normal Saline (100mL Bag) 80 ML 10 MG CONT INF ×2 (03:45→14:53)
[2024-12-24 04:24] LABS: Reflex Lactate? Y
[2024-12-24 04:26] LABS: Hematocrit 34.5 % (40-54); Hemoglobin 11.2 g/dL (13.0-16.5)
[2024-12-24] MEDS: Electrolyte Solution/Peg's 4000 ML PO (05:33)
[2024-12-24 05:34] LABS: AST(SGOT) 24 U/L (<=37); Alanine Aminotransfer ALT/SGPT 26 U/L (<=46); Albumin, Serum 3.5 g/dL (3.4-4.8); Alkaline Phosphatase 136 U/L (40-129); Anion Gap 16 (5-15); BUN 14 mg/dL (4-19); BUN/Creat Ratio 8.9 RATIO (10-20); Calcium,Total 8.5 mg/dL (7.6-11.0); Carbon Dioxide 16.6 mmol/L (21.0-32.0); Chloride 106 mmol/L (98-108); Estimated Creatinine Clearance 42.41 ml/min (50-250); Globulin 3.1 g/dL (2.2-4.2); Glucose 127 mg/dL (70-99); Potassium 4.0 mmol/L (3.3-5.1)
--- NOTE | 2024-12-24 07:25 | PCM.PN.BLA ---
Progress Note Patient is a 79-year-old gentleman with recent acute inferior ST segment elevation SC with recurrent admission following his SC discharged on 12/17/2024 for pericarditis. Presented to the emergency department with hematochezia. Patient has been admitted to monitored bed initial assessment including history and physical reviewed diagnostic data also reviewed will follow.
[2024-12-24 07:34] LABS: Hematocrit 38.7 % (40-54); Hemoglobin 12.3 g/dL (13.0-16.5)
[2024-12-24] MEDS: TICAGRELOR 90 MG TABLET PO ×2 (09:47→21:12)
[2024-12-24 11:28] LABS: Hematocrit 32.2 % (40-54); Hemoglobin 10.5 g/dL (13.0-16.5)
[2024-12-24] MEDS: Insulin Glargine-YFGN 100 UNIT/ML Pen 10 UNIT SC (11:54)
[2024-12-24] MEDS: 0.9% Normal Saline (250mL Bag) 250 ML 15 ML IV (14:54)
[2024-12-24 16:18] LABS: Hematocrit 32.2 % (40-54); Hemoglobin 10.6 g/dL (13.0-16.5)
[2024-12-24] MEDS: Electrolyte Solution/Peg's 4000 ML 1000 ML PO (18:08)
[2024-12-25] VITALS (14 sets, daily range): BP systolic 85–130; BP diastolic 55–80; PULSE 69–83; RESP 12–19; TEMP 35.7–37; O2SAT 94–99; BMI 32.6
[2024-12-25] MEDS: Pantoprazole Sodium 80 MG in 0.9% Normal Saline (100mL Bag) 80 ML 10 MG CONT INF ×2 (00:18→10:45)
[2024-12-25 03:48] LABS: Hematocrit 30.7 % (40-54); Hemoglobin 10.2 g/dL (13.0-16.5); Immature Granulocytes Count 0.020 X10^3/uL (0.0-0.0); Mean Corp Hgb Conc 33.2 g/dL (32-36); Mean Corpuscular Volume 87.2 fL (80-94); Mean Platelet Vol. 12.9 fl (6.2-12.0); NRBC Flagged by Analyzer 0 % (0-5); Platelet Count 110 K/mm3 (150-450); RBC Distribution Width CV 14.2 % (11.6-14.6); RBC Distribution Width SD 44.7 fl (35.1-43.9); Red Blood Count 3.52 M/mm3 (4.6-6.2); White Blood Count 7.0 K/mm3 (4.4-11.0)
[2024-12-25 04:24] LABS: Anion Gap 13 (5-15); BUN 9 mg/dL (4-19); BUN/Creat Ratio 6.6 RATIO (10-20); Calcium,Total 8.3 mg/dL (7.6-11.0); Carbon Dioxide 19.8 mmol/L (21.0-32.0); Chloride 106 mmol/L (98-108); Estimated Creatinine Clearance 49.25 ml/min (50-250); Glucose 105 mg/dL (70-99); Magnesium 1.5 mg/dL (1.5-2.2); Potassium 3.4 mmol/L (3.3-5.1)
--- NOTE | 2024-12-25 05:55 | EKG12_ITS ---
Test Reason : AM EKG Blood Pressure : */* mmHG Vent. Rate : 75 BPM Atrial Rate : 75 BPM P-R Int : 180 ms QRS Dur : 86 ms QT Int : 430 ms P-R-T Axes : 70 -12 -73 degrees QTcB Int : 480 ms Normal sinus rhythm Inferior infarct (cited on or before 20-Dec-2024) Abnormal ECG When compared with ECG of 20-Dec-2024 11:52, No significant change was found Confirmed by NAOMIE PALOMO, PARVEZ ([id number]), visual effects editor MARÍA AMBROSIO ([id number]) on 12/25/2024 12:58:29 PM Referred By: PAPITO Confirmed By: PARVEZ AKBAR MD
[2024-12-25] MEDS: TICAGRELOR 90 MG TABLET PO ×2 (09:40→22:07)
--- NOTE | 2024-12-25 10:52 | CASEMGMT ---
Social Work- SW met with pt and pt dtr to discuss d/c planning. SW introduced self and role. Pt plans to return to [facility]. DCA updated. SW remains available to follow. ALISSON Read
--- NOTE | 2024-12-25 12:07 | PN.HOSP_ITS ---
Subjective Subjective Doing well, no issues overnight. Awaiting endoscopy Objective Data Objective Data Vital Signs: Vital Signs Temp Pulse Resp BP Pulse Ox O2 Del Method 98.6 F 75 18 105/73 96 Room Air 12/25/24 09:10 12/25/24 09:10 12/25/24 09:10 12/25/24 09:10 12/25/24 09:10 12/25/24 09:19 Oxygen Delivery Method Room Air Weight: 221 lb 1.978 oz Body Mass Index (BMI) 32.6 Intake & Output: Intake and Output for Last 24 Hours 12/24/24 12/25/24 12/26/24 03:59 03:59 03:59 Intake Total 2469.17 / 2469.17 100 / 100 Output Total 200 / 200 800 / 800 125 / 125 Balance -200 / -200 1669.17 / 1669.17 - Lab / Micro Data 12/25/24 03:28 12/25/24 03:28 Labs: Laboratory Results - last 24 hr 12/24/24 16:00: Hgb 10.6 L, Hct 32.2 L 12/24/24 16:35: POC Glucose 96 12/24/24 21:27: POC Glucose 107 H 12/25/24 03:28: WBC 7.0, RBC 3.52 L, Hgb 10.2 L, Hct 30.7 L, MCV 87.2, MCH 29.0, MCHC 33.2, RDW Std Deviation 44.7 H, RDW Coeff of Adrian 14.2, Plt Count 110 L, MPV 12.9 H, Immature Gran % (Auto) 0.300, Neut % (Auto) 75.7 H, Lymph % (Auto) 14.2 L, Hitchcock % (Auto) 8.4, Eos % (Auto) 1.1, Baso % (Auto) 0.3, Absolute Neuts (auto) 5.3, Absolute Lymphs (auto) 1.00, Nucleated RBC % 0, Sodium 139, Potassium 3.4, Chloride 106, Carbon Dioxide 19.8 L, Anion Gap 13, BUN 9, Creatinine 1.42 H, E stim Creat Clear Calc 49.25 L, Est GFR (MDRD) Non-Af 50 L, BUN/Creatinine Ratio 6.6 L, Glucose 105 H, Calcium 8.3, Phosphorus 2.0 L, Magnesium 1.5 12/25/24 06:03: POC Glucose 102 12/25/24 11:10: POC Glucose 115 H Micro: Microbiology 12/24/24 00:58 Stool Stool Occult Blood (JESSICA) - Final Occult Blood Positive Physical Exam Narrative General: Alert, Oriented x3, Cooperative, No apparent distress HEENT: Atraumatic, PERRLA, EOMI, Normocephalic Oral: Moist Mucosa Neck: Supple, No JVD Lungs: Clear to auscultation, Normal air movement, No rhonchi, No wheeze, No rales Cardiovascular: Regular rate, Regular Rhythm, Normal S1, Normal S2, No murmurs Abdomen: Soft, Non Tender, Non-Distended, No Hepato-splenomegaly Extremities: Trace edema, Capillary Refill Less than 3 Seconds Skin: No rashes, No breakdown Musculoskeletal: No Tenderness to Palpation of Joints or Extremities Neurological: No focal neurological deficits, Motor Exam 5/5 strength throughout, Sensory exam intact to light touch and pain Psych/Mental Status: Normal Affect, Appropriate Assessment & Plan Assessment/Plan (1) BRBPR (bright red blood per rectum): PLAN: Plan 1. Acute GI bleed with mild blood loss anemia with chronic thrombocytopenia/GERD ? Continue with n.p.o. status ? Consult GI ? Awaiting endoscopy results ? He has had thrombocytopenia in the past, will monitor ? Continue with PPI 2. CAD status post stent/chronic diastolic CHF/essential HTN/HLD ? Continue with home blood pressure medications ? Will monitor make adjustments as necessary ? Continue with aspirin and Brilinta given his issues with his stent ? Continue with Lipitor 3. DM2/CKD 4 ? Monitor renal function ? Accu-Cheks ? Sliding scale insulin ? Will monitor and make adjustments as necessary 4. Anxiety/depression ? Stable ? Continue with his home medications DVT: SCDs Charges/Coding Visit Charges Inpatient E&M: 55713 Subs Hosp L2
--- NOTE | 2024-12-25 12:59 | CASEMGMT ---
Discharge Planning Updates went to [facility]. Maria R Elliott DC Planning Asst.
[2024-12-25] MEDS: Lactated Ringers 1,000 ML 15 ML IV (14:48)
--- NOTE | 2024-12-25 15:33 | PCM.PRE.AN2 ---
ASA Classification* ASA Classification ASA Classification: 4 (The patient has had 3 heart attacks within the last month and is at high risk for rethrombosis. He has continued his blood thinning medicine. This was discussed with the GI physician and due to the patient's bleeding it was recommended that they continue with plan) and E Assessment & Plan Anesthesia* Anesthesia Assessment Anesthesia Assessment: Discussed sedation and/or anesthesia options, risks, benefits, and alternatives with patient/parents/legal guardian/POA. Questions invited. The patient/parents/legal guardian/POA seems to understand and agrees to proceed with anesthesia plan. Reviewed the physical assessment, medical history, allergy history and patient home medications list prior to surgery/procedure/anesthetic and documented any changes. Performed airway and anesthesia risk assessments. Anesthesia Type Anesthesia Type: MAC History Source History Obtained from:: Patient, Chart and Significant Other Anesthesia Focused Assessment* Temperature: 98.4 F Pulse Rate: 83 Blood Pressure: 125/77 Respiratory Rate: 16 Pulse Ox: 98 Oxygen Delivery Method: Room Air Airway Assessment Mouth opens: 2 cm Mallampati Score: III Teeth Condition: Intact Neck Range of motion (ROM): Full ROM Labs Anesthesia Preop lab: CBC WBC 7.0 K/mm3 (4.4-11.0) 12/25/24 03:12/25/24 RBC 3.52 M/mm3 (4.6-6.2) L 12/25/24 03:12/25/24 Hgb 10.2 g/dL (13.0-16.5) L 12/25/24 03:12/25/24 Hct 30.7 % (40-54) L 12/25/24 03:12/25/24 Plt Count 110 K/mm3 (150-450) L 12/25/24 03:28 12/25/24 CHEMISTRY Potassium 3.4 mmol/L (3.3-5.1) 12/25/24 03:12/25/24 Sodium 139 mmol/L (133-145) 12/25/24 03:12/25/24 Magnesium 1.5 mg/dL (1.5-2.2) 12/25/24 03:12/25/24 Phosphorus 2.0 mg/dL (2.7-4.5) L 12/25/24 03:28 12/25/24 BUN 9 mg/dL (4-19) 12/25/24 03:28 12/25/24 Creatinine 1.42 mg/dL (0.70-1.20) H 12/25/24 03:28 12/25/24 Glucose 105 mg/dL (70-99) H 12/25/24 03:28 12/25/24 POC Glucose 115 mg/dL (74-106) H 12/25/24 11:10 12/25/24 TSH 5.250 uIU/mL (0.300-4.200) H 12/21/24 05:10 12/21/24 COAG PT 13.5 SECONDS (11.7-14.9) 12/24/24 00:00 12/24/24 Pre-Assessment Diagnosis/Proposed Procedure Planned Operative Procedure(s): EGD, Colonoscopy Anesthesia History Anesthesia History - nurses supervisor: Anesthesia History - nurses supervisor Hx Hospitalization No 01/12/20 17:35 Any Problems With Anesthesia No 01/20/17 15:03 Cholinesterase deficiency No 01/20/17 15:03 You/Your Family Experience No 08/13/17 07:02 fever (hyperthermia) with Relationship Recent Exposure to Contagious No 01/26/17 06:23 Disease Does patient have nerve No 12/25/24 11:48 stimulator Patient instructed to have device shut off --Does patient have Pacemaker No 12/25/24 11:30 or ICD? When Was Last Pacemaker Check QUESTION #4 FULL TEXT: You/Your Family Experience fever (hyperthermia) with Anesthesia Last Oral Intake Last Oral intake: Last Oral Intake NPO since 00:00 12/25/24 11:30 Meds taken in AM with sips of Yes 12/25/24 11:30 water? Meds patient instructed to Aspirin, Brilinta, Prozac, 12/25/24 11:30 take am of surgery Claritin PONV PONV - nurses supervisor: PONV - nurses supervisor Female HX of Motion Sickness HX of N/V After Surgery Non-Smoker Duration of Surgery greater than 60 minutes Number of Risk Factors PONV Score Height & Weight Height & Weight: Anesthesia: Height & Weight Height 5 ft 9 in 12/25/24 11:30 Weight: 100.3 kg 12/25/24 11:30 Body Mass Index (BMI) 32.6 12/25/24 11:30 Respiratory Assessment Respiratory Assessment - nurses supervisor: Respiratory Tract Infection Hx - nurses supervisor Hx Respiratory Tract Infection Yes: ON ANTIBIOTIC. 01/20/17 15:03 AWARE STOP Sleep Apnea STOP Sleep Apnea - nurses supervisor: STOP Sleep Apnea - nurses supervisor Hx Hypertension Yes 12/24/24 10:02 Hx Sleep Apnea Yes 12/24/24 02:54 CPAP Yes 12/24/24 02:54 BIPAP No 12/24/24 02:54 Do you snore loudly (louder than talking or can be heard Do you often feel tired/ fatigued/ sleepy during daytime? Has anyone observed you stop breathing during sleep? STOP Results Positive 12/24/24 02:54 QUESTION #5 FULL TEXT : Do you snore loudly (louder than talking or can be heard through closed doors)? 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 Specify any problems Hx of Preganancy in last 3 N/A 12/24/24 02:54 Months Nurse Filling Out Transfusion AHINES 12/24/24 02:54 & Questions: Date: 12/24/24 12/24/24 02:54 Time: 02:55 12/24/24 02:54 Patient unable to answer at this time (ie. confused, unrespo /Reproduction History /Reproductive History - nurses supervisor: /Reproductive Hx- nurses supervisor Hx Now Gestational Age (in weeks): EDC: Hx Hx Para Hx Section SAB Active Medications Active Medications: Current Medications Generic Name Dose Route Start Last Admin Trade Name Freq PRN Reason Stop Dose Admin Acetaminophen 650 mg 12/24/24 02:41 Acetaminophen 325 Mg Tablet PO Q4H PRN PRN Fever, pain 1-10 Al Hydroxide/Mg Hydroxide 30 ml 12/24/24 02:41 Mag Hydrox/Al Hydrox/Simeth 30 Ml Udc PO Q6H PRN PRN Gastric Burning Albuterol Sulfate 2.5 mg 12/24/24 02:41 Albuterol 2.5 Mg/3 Ml Vial.Neb. INHALATION Q2H PRN PRN Dyspnea, wheezing Aspirin 81 mg 12/24/24 08:00 12/25/24 09:40 Aspirin 81 Mg Tab.Chew PO 81 mg BREAKFAST SHARON Administration Atorvastatin Calcium 40 mg 12/24/24 22:00 12/24/24 21:12 Atorvastatin Calcium 40 Mg Tablet PO 40 mg QHS SHARON Administration Fluoxetine HCl 80 mg 12/24/24 10:00 12/25/24 09:40 Fluoxetine Hcl 40 Mg Capsule PO 80 mg DAILY SHARON Administration Glucagon 1 mg 12/24/24 02:41 Glucagon 1 Mg/Ml Syringe IM X1 PRN HYPOGLYCEMIA Protocol Guaifenesin 20 ml 12/24/24 02:41 Guaifenesin 10 Ml Udc (200mg/10ml) PO Q4H PRN PRN COUGH Hydralazine HCl 10 mg 12/24/24 02:41 Hydralazine 20 Mg/Ml Vial IV Q4H PRN PRN SBP > 160 Protocol Pantoprazole Sodium 80 mg/ 100 mls @ 10 mls/hr 12/24/24 02:41 12/25/24 10:45 Sodium Chloride CONT INF 10 mls/hr Q10H SHARON Administration Dextrose 250 mls @ 0 mls/hr 12/24/24 02:41 Dextrose 10%-Water IV .Q0M PRN HYPOGLYCEMIA Protocol As Directed Sodium Chloride 250 mls @ 15 mls/hr 12/24/24 02:42 12/24/24 14:54 IV 0 mls/hr .[id number] PRN Infusion Saline Flush Sodium Chloride 250 mls @ 15 mls/hr 12/24/24 02:42 IV .[id number] PRN Additional IVPB Infusion Lactated Ringer's 1,000 mls @ 15 mls/hr 12/25/24 14:45 12/25/24 14:48 IV 15 mls/hr .Q48H SHARON Administration Insulin Glargine 10 unit 12/24/24 10:00 12/25/24 09:09 Insulin Glargine-Yfgn 100 Unit/Ml Pen SC Not Given DAILY SHARON Insulin Human Lispro 0 unit 12/24/24 11:00 12/25/24 11:22 Insulin Lispro 100 Unit/Ml Insuln.Pen SC Not Given ACHS [facility] Protocol Levothyroxine Sodium 25 mcg 12/24/24 10:00 12/25/24 06:07 Levothyroxine 25 Mcg Tablet PO 25 mcg DAILY@0600 SHARON Administration Loratadine 10 mg 12/24/24 10:00 12/25/24 09:40 Loratadine 10 Mg Tablet PO 10 mg DAILY SHARON Administration Melatonin 3 mg 12/24/24 02:41 Melatonin 3 Mg Tablet PO QHS PRN PRN INSOMNIA Mirtazapine 15 mg 12/24/24 22:00 12/24/24 21:12 Mirtazapine 15 Mg Tablet PO 15 mg QHS SHARON Administration Nitroglycerin 0.4 mg 12/24/24 02:41 Nitroglycerin (Inpatient Use) 0.4 Mg Tab.Subl SL Q5M PRN CARDIAC/CHEST PAIN Ondansetron HCl 4 mg 12/24/24 02:41 Ondansetron 4 Mg/2 Ml Vial IV Q8H PRN PRN NAUSEA/VOMITING Sodium Chloride 10 - 40 ml 12/24/24 02:42 0.9% Saline Lock 10 Ml Syringe IV UD PRN SALINE FLUSH Ticagrelor 90 mg 12/24/24 10:00 12/25/24 09:40 Ticagrelor 90 Mg Tablet PO 90 mg BID SHARON Administration PFSH Medical History Pericardial effusion Chest pain CKD (chronic kidney disease) stage 4, GFR 15-29 ml/min Central sleep apnea Diastolic heart failure Recent ST elevation myocardial infarction (STEMI) Chest pain History of acute inferior wall [place] Acute ST elevation myocardial infarction (STEMI) of inferior wall Anxiety Depression Diabetes Kidney disease Former smoker Atrial fibrillation Myocardial infarct Coronary artery disease Hypertension TIA (transient ischemic attack) Anemia Shortness of breath Unstable angina Fatigue Syncope Left-sided weakness History of COVID-19 Presence of stent in coronary artery (~08/31/22) Dyslipidemia Diabetes mellitus Chronic kidney disease Coronary artery disease Angina pectoris Abnormal PFT Chest heaviness Palpitations DEAN (dyspnea on exertion) Dizziness Leg pain Cough Exposure to COVID-19 virus Nonhealing nonsurgical wound with fat layer exposed Laceration without foreign body of scalp, subsequent encounter Acute left-sided weakness Essential hypertension CHF (congestive heart failure) History of melanoma Obesity (BMI 35.0-39.9 without comorbidity) CAD (coronary artery disease) 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.9) COPD (chronic obstructive pulmonary disease) TIA (transient ischemic attack) Obstructive sleep apnea Atherosclerotic heart disease [place] coronary artery w/angina pectoris Type 2 diabetes mellitus without complications Hyperlipidemia Obesity Home Medications ?Medication ?Instructions ?Recorded ?Last Taken ?Type aspirin 81 mg tablet,delayed 81 mg PO DAILY@0800 health 01/21/17 10/11/23 History release maintenance mirtazapine 15 mg tablet (Remeron) 15 mg PO QHS sleep 09/21/18 10/11/23 History cyanocobalamin (vitamin B-12) 1,000 mcg PO DAILY vitamin ##0 06/01/19 10/11/23 History 1,000 mcg capsule magnesium oxide 400 mg (241.3 mg 800 mg PO DAILY SUPPLEMENT 08/01/21 10/11/23 History magnesium) tablet cholecalciferol (vitamin D3) [address] 09/16/21 10/11/23 History mcg (1,000 unit) tablet fluoxetine 40 mg capsule 80 mg PO DAILY DEPRESSION 90 days 09/16/21 10/11/23 History #180 caps acetaminophen 325 mg tablet 650 mg PO Q6H PRN Pain 1-02/0910/12/23 Unknown History atorvastatin 40 mg tablet 40 mg PO QHS CHOLESTEROL #90 tabs 06/14/24 Unknown Rx nitroglycerin 0.4 mg sublingual 0.4 mg sublingual Q5-15M PRN CHEST 06/14/24 Unknown Rx tablet PAIN #25 tabs pantoprazole 40 mg tablet,delayed 40 mg PO DAILY GERD #90 tabs 06/14/24 Unknown Rx release amlodipine 5 mg tablet 5 mg PO QPM blood pressure 10/25/24 Unknown History metoprolol succinate 25 mg 25 mg PO DAILY blood pressure #30 10/25/24 Unknown Rx tablet,extended release 24 hr tabs ticagrelor 90 mg tablet (Brilinta) 90 mg PO BID #60 tabs 12/02/24 Unknown Rx empagliflozin 10 mg tablet 10 mg PO DAILY #90 tabs 12/06/24 Unknown Rx (Jardiance) spironolactone 25 mg tablet 25 mg PO DAILY #90 tabs 12/06/24 Unknown Rx cetirizine 10 mg tablet 5 mg PO DAILY Allergic Reaction 12/12/24 Unknown History colchicine 0.6 mg capsule 0.6 mg PO BID 90 days #0 caps 12/17/24 Unknown Rx nutrition tx glu 120 ml PO 4X/DAY #0 mL 12/17/24 Unknown Rx intol,lac-free,soy-fiber 0.06 gram-1.2 kcal/mL liquid (Glucerna 1.2 Ashwin) potassium chloride 10 mEq 30 meq (3 x 10 mEq) PO BID #0 tabs 12/17/24 Unknown Rx tablet,extended release(part/cryst) promethazine 12.5 mg tablet 12.5 mg PO Q6H PRN nausea and 12/17/24 Unknown Rx vomiting #1 TAB furosemide 40 mg tablet 40 mg PO Q OTHER DAY #90 tabs 12/21/24 Unknown Rx insulin degludec 100 unit/mL (3 10 unit subcut DAILY diabetes 12/24/24 Unknown History mL) subcutaneous pen levothyroxine 25 mcg tablet 25 mcg PO DAILY thyroid 12/24/24 Unknown History (Synthroid) ondansetron 4 mg disintegrating 4 mg PO Q6H PRN nausea and vomiting 12/24/24 Unknown History tablet ondansetron 4 mg disintegrating 4 mg PO TID nausea 12/24/24 Unknown History tablet Allergy/AdvReac Type Severity Reaction Status Date / Time No Known Allergies Allergy Verified 12/23/24 23:45 Family History Father Parkinsons disease Prostate cancer Mother Osteoporosis Surgical History Presence of coronary angioplasty implant and graft (11/27/24) History of tympanostomy tube placement History of percutaneous transluminal coronary angioplasty (08/18/18) History of herniorrhaphy Hx of cholecystectomy History of tonsillectomy History of prostatectomy Social History household members: spouse and none housing: [facility] Smoking Status: Former smoker quit date: 05/03/98 pack-years: 50 how long ago did patient quit smokin years ago alcohol intake: never substance use type: does not use caffeine: Yes Type: coffee and tea Number of servings: 6 Review of Systems (Anesthesia) ROS Narrative System reviewed and no additional complaints, except as documented.
--- NOTE | 2024-12-25 15:46 | EX.PCM.CON.G ---
HPI Consult Data Date of Consult: 12/25/24 HPI Narrative Reason for Consultation: Lower GI bleed HPI Narrative: GERRY GARCIA, is a 79-year-old male presented to the ED with lower GI bleeding. He has a past medical history of coronary artery disease status post stent placement hypertension hyperlipidemia COPD and [id number] diabetes. According to the patient , he had 2 bowel movements this evening that were bright red in color and large. This turned into active bleeding and the fact he is on Brilinta he was sent to the ER for repeat evaluation. Patient states that he has abdominal cramping and confirms it was bright red blood per rectum not dark or black. He states he has continued to take his Brilinta as directed based on his recent cardiac stents. He denies any lightheaded dizziness or hematemesis. CT scan abdomen pelvis showed diffuse diverticular disease. [facility] Medical History Obesity (BMI 30-39.9) Acute kidney injury superimposed on stage 4 chronic kidney disease Asthma Wheezing Abnormal stress test Bilateral lower extremity edema Pericardial effusion Chest pain CKD (chronic kidney disease) stage 4, GFR 15-29 ml/min Central sleep apnea Diastolic heart failure Recent ST elevation myocardial infarction (STEMI) Chest pain History of acute inferior wall CT Acute ST elevation myocardial infarction (STEMI) of inferior wall Anxiety Depression Diabetes Kidney disease Former smoker Atrial fibrillation Myocardial infarct Coronary artery disease Hypertension TIA (transient ischemic attack) Anemia Shortness of breath Unstable angina Fatigue Syncope Left-sided weakness History of COVID-19 Presence of stent in coronary artery (~08/31/22) Dyslipidemia Diabetes mellitus Chronic kidney disease Coronary artery disease Angina pectoris Abnormal PFT Chest heaviness Palpitations DEAN (dyspnea on exertion) Dizziness Leg pain Cough Exposure to COVID-19 virus Nonhealing nonsurgical wound with fat layer exposed Laceration without foreign body of scalp, subsequent encounter Acute left-sided weakness Essential hypertension CHF (congestive heart failure) History of melanoma Obesity (BMI 35.0-39.9 without comorbidity) CAD (coronary artery disease) 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.9) COPD (chronic obstructive pulmonary disease) TIA (transient ischemic attack) Obstructive sleep apnea Atherosclerotic heart disease [place] coronary artery w/angina pectoris Type 2 diabetes mellitus without complications Hyperlipidemia Obesity Home Medications ?Medication ?Instructions ?Recorded ?Last Taken ?Type aspirin 81 mg tablet,delayed 81 mg PO DAILY@0800 health 01/21/17 10/11/23 History release maintenance mirtazapine 15 mg tablet (Remeron) 15 mg PO QHS sleep 09/21/18 10/11/23 History cyanocobalamin (vitamin B-12) 1,000 mcg PO DAILY vitamin ##0 06/01/19 10/11/23 History 1,000 mcg capsule magnesium oxide 400 mg (241.3 mg 800 mg PO DAILY SUPPLEMENT 08/01/21 10/11/23 History magnesium) tablet cholecalciferol (vitamin D3) [address] 09/16/21 10/11/23 History mcg (1,000 unit) tablet fluoxetine 40 mg capsule 80 mg PO DAILY DEPRESSION 90 days 09/16/21 10/11/23 History #180 caps acetaminophen 325 mg tablet 650 mg PO Q6H PRN Pain 1-02/0910/12/23 Unknown History atorvastatin 40 mg tablet 40 mg PO QHS CHOLESTEROL #90 tabs 06/14/24 Unknown Rx nitroglycerin 0.4 mg sublingual 0.4 mg sublingual Q5-15M PRN CHEST 06/14/24 Unknown Rx tablet PAIN #25 tabs pantoprazole 40 mg tablet,delayed 40 mg PO DAILY GERD #90 tabs 06/14/24 Unknown Rx release amlodipine 5 mg tablet 5 mg PO QPM blood pressure 10/25/24 Unknown History metoprolol succinate 25 mg 25 mg PO DAILY blood pressure #30 10/25/24 Unknown Rx tablet,extended release 24 hr tabs ticagrelor 90 mg tablet (Brilinta) 90 mg PO BID #60 tabs 12/02/24 Unknown Rx empagliflozin 10 mg tablet 10 mg PO DAILY #90 tabs 12/06/24 Unknown Rx (Jardiance) spironolactone 25 mg tablet 25 mg PO DAILY #90 tabs 12/06/24 Unknown Rx cetirizine 10 mg tablet 5 mg PO DAILY Allergic Reaction 12/12/24 Unknown History colchicine 0.6 mg capsule 0.6 mg PO BID 90 days #0 caps 12/17/24 Unknown Rx nutrition tx glu 120 ml PO 4X/DAY #0 mL 12/17/24 Unknown Rx intol,lac-free,soy-fiber 0.06 gram-1.2 kcal/mL liquid (Glucerna 1.2 Ashwin) potassium chloride 10 mEq 30 meq (3 x 10 mEq) PO BID #0 tabs 12/17/24 Unknown Rx tablet,extended release(part/cryst) promethazine 12.5 mg tablet 12.5 mg PO Q6H PRN nausea and 12/17/24 Unknown Rx vomiting #1 TAB furosemide 40 mg tablet 40 mg PO Q OTHER DAY #90 tabs 12/21/24 Unknown Rx insulin degludec 100 unit/mL (3 10 unit subcut DAILY diabetes 12/24/24 Unknown History mL) subcutaneous pen levothyroxine 25 mcg tablet 25 mcg PO DAILY thyroid 12/24/24 Unknown History (Synthroid) ondansetron 4 mg disintegrating 4 mg PO Q6H PRN nausea and vomiting 12/24/24 Unknown History tablet ondansetron 4 mg disintegrating 4 mg PO TID nausea 12/24/24 Unknown History tablet Allergy/AdvReac Type Severity Reaction Status Date / Time No Known Allergies Allergy Verified 12/23/24 23:45 Family History Father Parkinsons disease Prostate cancer Mother Osteoporosis Surgical History Presence of coronary angioplasty implant and graft (11/27/24) History of tympanostomy tube placement History of percutaneous transluminal coronary angioplasty (08/18/18) History of herniorrhaphy Hx of cholecystectomy History of tonsillectomy History of prostatectomy Social History household members: spouse and none housing: skilled nursing Smoking Status: Former smoker quit date: 05/03/98 pack-years: 50 how long ago did patient quit smokin years ago alcohol intake: never substance use type: does not use caffeine: Yes Type: coffee and tea Number of servings: 6 ROS ROS Narrative Admission Review of Systems: CONSTITUTIONAL: No weight loss, fever, chills, + weakness or fatigue. HEENT: + Occasional episodes of lightheadedness, near syncopal type sensation. Eyes: No visual loss, blurred vision, double vision or yellow sclerae. Ears, Nose, Throat: No hearing loss, sneezing, congestion, runny nose or sore throat. SKIN: No rash or itching, lesions, wounds except + occasional stage ecchymoses, abrasions. CARDIOVASCULAR: + Occasional episodes of lightheadedness, near syncopal type sensation, chronic lower extremity edema but currently not severe. No chest pain, chest pressure or chest discomfort, palpitations, orthopnea. RESPIRATORY: No shortness of breath, cough or sputum, wheezing, hemoptysis. GASTROINTESTINAL: + Persistent decreased appetite, episodes of nausea and emesis, bright red blood per rectum. No diarrhea, severe constipation, abdominal pain or melanotic stools reported. GENITOURINARY: No dysuria, frequency, urgency or retention. NEUROLOGICAL: + Occasional episodes of lightheadedness, near syncopal type sensation with exertion. No headache, paralysis, ataxia, numbness or tingling in the extremities, focal weakness, change in bowel or bladder control, seizure. MUSCULOSKELETAL: No muscle, back pain, joint pain or stiffness. HEMATOLOGIC: + Chronic anemia, easy bleeding/bruising, current bright red blood per rectum intermittently as noted. LYMPHATICS: No enlarged nodes. No history of splenectomy. PSYCHIATRIC: + History of anxiety and depression. ENDOCRINOLOGIC: No reports of sweating, cold or heat intolerance. No polyuria or polydipsia. ALLERGIES: + History of asthma, allergic rhinitis. Physical Exam Const alert, oriented x3, no apparent distress and healthy appearing General Appearance: cooperative GI normal to inspection, nondistended, normoactive bowel sounds, soft to palpation, non-tender and non-distended Percussion: normal to percussion Rectal Exam: deferred Lab / Micro Data 12/25/24 03:28 12/25/24 03:28 Labs: Laboratory Results - last 24 hr 12/24/24 16:00: Hgb 10.6 L, Hct 32.2 L 12/24/24 16:35: POC Glucose 96 12/24/24 21:27: POC Glucose 107 H 12/25/24 03:28: WBC 7.0, RBC 3.52 L, Hgb 10.2 L, Hct 30.7 L, MCV 87.2, MCH 29.0, MCHC 33.2, RDW Std Deviation 44.7 H, RDW Coeff of Adrian 14.2, Plt Count 110 L, MPV 12.9 H, Immature Gran % (Auto) 0.300, Neut % (Auto) 75.7 H, Lymph % (Auto) 14.2 L, Dillon % (Auto) 8.4, Eos % (Auto) 1.1, Baso % (Auto) 0.3, Absolute Neuts (auto) 5.3, Absolute Lymphs (auto) 1.00, Nucleated RBC % 0, Sodium 139, Potassium 3.4, Chloride 106, Carbon Dioxide 19.8 L, Anion Gap 13, BUN 9, Creatinine 1.42 H, Estim Creat Clear Calc 49.25 L, Est GFR (MDRD) Non-Af 50 L, BUN/Creatinine Ratio 6.6 L, Glucose 105 H, Calcium 8.3, Phosphorus 2.0 L, Magnesium 1.5 12/25/24 06:03: POC Glucose 102 12/25/24 11:10: POC Glucose 115 H Assessment & Plan Assessment/Plan (1) Coronary artery disease: (2) GI (gastrointestinal bleed): (3) Diverticulosis: PLAN: 79 gentleman with past medical history of CAD status post recent non-ST segment elevation CT with PTCA with stents on Brilinta, aspirin and Plavix. Patient will undergo colonoscopy to see site of lower GI bleeding. There is a diagnosis does include diverticular disease, ischemic colitis, stercoral ulcer, malignancy, upper GI bleed rapid transit. He was explained alternatives, benefits, risk include not withstanding bleeding, infection, sepsis, perforation, need for surgery . He will have an ASA of 3. Charges/Coding Visit Charges Inpatient E&M: 86316 Init Hosp L3
[2024-12-25] MEDS: Lidocaine 1% (5 ml sdv) 5 ML Vial 10 ML IV (16:01)
--- NOTE | 2024-12-25 16:25 | OP.EGD_ITS ---
Patient Name: Eriberto Rico Procedure Date: 12/25/2024 3:51 PM Date of : 1945 Age: 79 Procedure: Upper GI endoscopy Indications: Hematochezia Providers: Tyler Aiken DO Medicines: Monitored Anesthesia Care Patient Profile: This is a 79 year old male. Refer to note in patient chart for documentation of history and physical. Patient has symptoms of acute left lower quadrant abdominal pain and acute epigastric abdominal pain. Complications: No immediate complications. Procedure: Pre-Anesthesia Assessment: - Prior to the procedure, a History and Physical was performed, and patient medications and allergies were reviewed. The patient is competent. The risks and benefits of the procedure and the sedation options and risks were discussed with the patient. All questions were answered and informed consent was obtained. Patient identification and proposed procedure were verified by the physician. Mental Status Examination: alert and oriented. Airway Examination: normal oropharyngeal airway and neck mobility. Respiratory Examination: clear to auscultation. CV Examination: normal. Prophylactic Antibiotics: The patient does not require prophylactic antibiotics. Prior Anticoagulants: The patient has taken no anticoagulant or antiplatelet agents except for NSAID medication. ASA Grade Assessment: II - A patient with mild systemic disease. After reviewing the risks and benefits, the patient was deemed in satisfactory condition to undergo the procedure. The anesthesia plan was to use monitored anesthesia care (MAC). Immediately prior to administration of medications, the patient was re-assessed for adequacy to receive sedatives. The heart rate, respiratory rate, oxygen saturations, blood pressure, adequacy of pulmonary ventilation, and response to care were monitored throughout the procedure. The physical status of the patient was re-assessed after the procedure. After obtaining informed consent, the endoscope was passed under direct vision. Throughout the procedure, the patient's blood pressure, pulse, and oxygen saturations were monitored continuously. The colonoscope was introduced through the mouth, and advanced to the jejunum. Small bowel enteroscopy was deemed necessary. The upper GI endoscopy was accomplished without difficulty. The patient tolerated the procedure well. Scope In: 4:04:11 PM Scope Out: 4:06:13 PM Total Procedure Duration Time 0 hours 2 minutes 2 seconds Findings: No gross lesions were noted in the entire esophagus. One non-bleeding linear gastric ulcer with no stigmata of bleeding was found in the gastric antrum. The lesion was 5 mm in largest dimension. Biopsies were taken with a cold forceps for histology. Verification of patient identification for the specimen was done. Estimated blood loss was minimal. Biopsies were taken with a cold forceps for Helicobacter pylori testing. Verification of patient identification for the specimen was done. Estimated blood loss was minimal. No gross lesions were noted in the entire examined duodenum. Impression: - No gross lesions in the entire esophagus. - Non-bleeding gastric ulcer with no stigmata of bleeding. Biopsied. - No gross lesions in the entire examined duodenum. Recommendation: - [facility]. - Resume regular diet. - Continue present medications. - Use Protonix (pantoprazole) 40 mg PO daily. Procedure Code(s): --- Professional --- 89373, Small intestinal endoscopy, enteroscopy beyond second portion of duodenum, not including ileum; with biopsy, single or multiple CPT copyright 2021 [employer]. All rights reserved. The codes documented in this report are preliminary and upon steel manager review may be revised to meet current compliance requirements. Tyler Aiken DO 12/25/2024 4:25:19 PM This report has been signed electronically. Number of Addenda: 0 Note Initiated On: 12/25/2024 3:51 PM
--- NOTE | 2024-12-25 16:26 | OP.PROVAT_ITS ---
12/25/2024 Victor M Luke [address] [facility] [place] [address] Re : Upper GI endoscopy procedure for Eribertotoribio Popelyndsay Dear Dr. Luke This procedure was performed on Wednesday, December 25, 2024. My impressions and recommendations are as follows: Impressions : - No gross lesions in the entire esophagus. - Non-bleeding gastric ulcer with no stigmata of bleeding. Biopsied. - No gross lesions in the entire examined duodenum. Recommendations : - [facility]. - Resume regular diet. - Continue present medications. - Use Protonix (pantoprazole) 40 mg PO daily. My findings are described in the full procedure note, which is enclosed. If I can be of further assistance, please feel free to contact me at . Sincerely, Tyler Aiken, 12/25/2024 4:25:19 PM This report has been signed electronically.
--- NOTE | 2024-12-25 16:27 | PCM.POST.ANE ---
Anesthesia: Postop Eval I Current Vital Signs Temperature: 97.4 F Pulse Rate: 74 Blood Pressure: 118/77 Respiratory Rate: 16 Pulse Ox: 99 Assessment Airway patent: Yes Spontaneous unlabored respirations: Yes nausea: No Vomiting: No Anesthesia Complication: No Fluid Hydration Crystalloid volume administer (ml): 400 Total IV fluid infused: 400 Progress Note Anesthesia document: Postop Eval 1 completed: Yes
--- NOTE | 2024-12-25 16:30 | EGD_PTH ---
PATIENT: GERRY GARCIA LOC: [facility] U#:[id number] AGE/SX: 79/M ROOM: [facility] RE12/24/[address]: Dr. Eladio Melendez MD : 1945 BED: 1 DIS: 12/26/2024 SPEC #: [id number] RECD: 12/25/24 17:37 STATUS: PEDRO ELISE #: [id number] LOVE: 12/25/24 16:[address]: Tyler Aiken DEPT: SURGICAL PATHOLOGY RECD BY: Jonah Bentley ENTERED: 12/26/24 09:11 SP TYPE: EGD BIOPSY OT DR: MD Dr. Alex Ornelas MD Dr. Mark Stutzman, MD Dr. Timothy Cramer Dr., MD Heather Evans, SENIOR REACTOR OPERATOR-C Opal Wright, SENIOR REACTOR OPERATOR-C PARISH Figueroa Tissues: A - Gastric mucous membrane B - SPLENIC FLEXURE Procedures: Immunohistochemical Stains Surgery Specimen Level IV HEADER OPERATION: Colonoscopy, EGD, biopsy, clip placement PRE-OP DIAGNOSIS: Coronary artery disease, gastrointestinal bleed, diverticulosis TISSUE SUBMITTED: A- Gastric ulcer biopsy, B- Splenic flexure biopsy MICROSCOPIC DIAGNOSIS A. Stomach, ulcer, biopsy: - Antral mucosa with chronic inflammation and reactive changes. - IHC negative for H. pylori organisms. B. Colon, splenic flexure, biopsy: - Superficial hyperplastic change (deeper sections examined). MICROSCOPIC DESCRIPTION Slides are reviewed. ?All matched controls reacted appropriately. These tests were developed and their performance characteristics determined by [facility]. They may not have been cleared or approved by the U.S. Food and Drug Administration. The FDA has determined that such clearance or approval is not necessary.? The above immunohistochemical?markers and/or special stains have been reviewed by the Pathologist. GROSS DESCRIPTION A. Received in fixative is one container labeled with the patient's name and designated Gastric ulcer biopsy. The specimen consists of two irregular fragments of light dai soft tissue, each measuring 0.6 cm. The specimen is totally submitted in one cassette. B. Received in fixative is one container labeled with the patient's name and designated Splenic flexure biopsy. The specimen consists of one irregular fragment of light dai soft tissue that measures 0.5 cm. The specimen is totally submitted in one cassette. UT 12/26/2024 CPT:36322l4 ,22294
--- NOTE | 2024-12-25 16:33 | OP.COLON_ITS ---
Patient Name: Eriberto Rico Procedure Date: 12/25/2024 4:06 PM Date of : 1945 Age: 79 Procedure: Colonoscopy Indications: Hematochezia Providers: Tyler Aiken DO Medicines: Monitored Anesthesia Care Patient Profile: This is a 79 year old male. Refer to note in patient chart for documentation of history and physical. Patient has symptoms of acute left lower quadrant abdominal pain and acute epigastric abdominal pain. Last Colonoscopy: several years ago. Complications: No immediate complications. Procedure: Pre-Anesthesia Assessment: - Prior to the procedure, a History and Physical was performed, and patient medications and allergies were reviewed. The patient is competent. The risks and benefits of the procedure and the sedation options and risks were discussed with the patient. All questions were answered and informed consent was obtained. Patient identification and proposed procedure were verified by the physician. Mental Status Examination: alert and oriented. Airway Examination: normal oropharyngeal airway and neck mobility. Respiratory Examination: clear to auscultation. CV Examination: normal. Prophylactic Antibiotics: The patient does not require prophylactic antibiotics. Prior Anticoagulants: The patient has taken no anticoagulant or antiplatelet agents except for NSAID medication. ASA Grade Assessment: II - A patient with mild systemic disease. After reviewing the risks and benefits, the patient was deemed in satisfactory condition to undergo the procedure. The anesthesia plan was to use monitored anesthesia care (MAC). Immediately prior to administration of medications, the patient was re-assessed for adequacy to receive sedatives. The heart rate, respiratory rate, oxygen saturations, blood pressure, adequacy of pulmonary ventilation, and response to care were monitored throughout the procedure. The physical status of the patient was re-assessed after the procedure. After I obtained informed consent, the scope was passed under direct vision. Throughout the procedure, the patient's blood pressure, pulse, and oxygen saturations were monitored continuously. The colonoscope was introduced through the anus and advanced to the cecum, identified by appendiceal orifice and ileocecal valve. The colonoscopy was performed without difficulty. The patient tolerated the procedure well. The quality of the bowel preparation was adequate. The ileocecal valve, appendiceal orifice, and rectum were photographed. Scope In: 4:08:19 PM Scope Withdrawal Time 0 hours 9 minutes 26 seconds Scope Out: 4:20:51 PM Total Procedure Duration Time 0 hours 12 minutes 32 seconds Findings: The perianal and digital rectal examinations were normal. Multiple small and large-mouthed diverticula were found in the recto-sigmoid colon, sigmoid colon and descending colon. An 8 mm polyp was found in the splenic flexure. The polyp was sessile. The polyp was removed with a jumbo cold forceps. Resection and retrieval were complete. For hemostasis, one hemostatic clip was successfully placed. Clip credit and collection manager: [employer]. There was no bleeding at the end of the procedure. Stool was found in the rectum, in the recto-sigmoid colon, in the sigmoid colon, in the transverse colon and in the cecum. Impression: - Diverticulosis in the recto-sigmoid colon, in the sigmoid colon and in the descending colon. - One 8 mm polyp at the splenic flexure, removed with a jumbo cold forceps. Resected and retrieved. Clip was placed. Clip credit and collection manager: [employer]. - Stool in the rectum, in the recto-sigmoid colon, in the sigmoid colon, in the transverse colon and in the cecum. Recommendation: - [facility]. - Resume regular diet. - Continue present medications. - Await pathology results. - Repeat colonoscopy in 3 years for surveillance. Procedure Code(s): --- Professional --- 06723, Colonoscopy, flexible; with control of bleeding, any method CPT copyright 2021 [employer] [place] [employer]. All rights reserved. The codes documented in this report are preliminary and upon product controller review may be revised to meet current compliance requirements. Tyler Aiken DO 12/25/2024 4:32:33 PM This report has been signed electronically. Number of Addenda: 0 Note Initiated On: 12/25/2024 4:06 PM
--- NOTE | 2024-12-25 16:33 | OP.PROVAT_ITS ---
12/25/2024 Victor M Luke [address] [facility] [place] [address] Re : Colonoscopy procedure for Eriberto Rico Dear Dr. Luke This procedure was performed on Wednesday, December 25, 2024. My impressions and recommendations are as follows: Impressions : - Diverticulosis in the recto-sigmoid colon, in the sigmoid colon and in the descending colon. - One 8 mm polyp at the splenic flexure, removed with a jumbo cold forceps. Resected and retrieved. Clip was placed. Clip heel builder machine: [employer]it. - Stool in the rectum, in the recto-sigmoid colon, in the sigmoid colon, in the transverse colon and in the cecum. Recommendations : - [facility]. - Resume regular diet. - Continue present medications. - Await pathology results. - Repeat colonoscopy in 3 years for surveillance. My findings are described in the full procedure note, which is enclosed. If I can be of further assistance, please feel free to contact me at . Sincerely, Tyler Aiken, 12/25/2024 4:32:33 PM This report has been signed electronically.
--- NOTE | 2024-12-25 17:02 | EKG12_ITS ---
Test Reason : CP Blood Pressure : */* mmHG Vent. Rate : 72 BPM Atrial Rate : 72 BPM P-R Int : 162 ms QRS Dur : 56 ms QT Int : 368 ms P-R-T Axes : 46 -14 -76 degrees QTcB Int : 402 ms Normal sinus rhythm Low voltage QRS Possible Inferior infarct , age undetermined Abnormal ECG Confirmed by George Ríos ([id number]), staff editor MARÍA AMBROSIO ([id number]) on 02/20/2025 11:15:04 AM Referred By: Confirmed By: George Ríos
[2024-12-25] MEDS: 0.9% Saline Lock 10 ML Syringe IV (17:32)
--- NOTE | 2024-12-25 19:23 | POSTOPAN2_ITS ---
Anesthesia Postop Eval I Sum Postop Eval Completion status Anesthesia document: Postop Eval 1 completed: Yes Anesthesia Postop Eval I Summary Anesthesia Postop Eval I Summary: Anesthesia Postop Eval I: Assessment Summary Airway patent Yes 12/25/24 16:27 FIXTURE FABRICATOR [email or web address] Spontaneous unlabored Yes 12/25/24 16:27 FIXTURE FABRICATOR REPAIRER.[email or web address] respirations Mental status nausea No 12/25/24 16:27 FIXTURE FABRICATOR REPAIRER.TNES Vomiting No 12/25/24 16:27 FIXTURE FABRICATOR REPAIRER.[email or web address] Anesthesia Postop Eval I: Fluid Summary Crystalloid volume administer 400 12/25/24 16:27 FIXTURE FABRICATOR REPAIRER.TNES (ml) Colloids volume administered ( ml) Blood Product volume administered (ml) Total IV fluid infused 400 12/25/24 16:27 FIXTURE FABRICATOR REPAIRER.[email or web address] Anesthesia Postop Eval I: Summary Notes Anesthesia Complication No 12/25/24 16:27 FIXTURE FABRICATOR REPAIRER.[email or web address] Anesthesia Complication Comment: Post-operative progress note Anesthesia: Postop Eval II Evaluation Mental status: Awake Pain Level: 0 nausea: No Vomiting: No Complications Anesthesia Complication: No
--- NOTE | 2024-12-25 19:23 | PCM.POSTANE2 ---
Anesthesia Postop Eval I Sum Postop Eval Completion status Anesthesia document: Postop Eval 1 completed: Yes Anesthesia Postop Eval I Summary Anesthesia Postop Eval I Summary: Anesthesia Postop Eval I: Assessment Summary Airway patent Yes 12/25/24 16:27 TECHNICAL SERVICES REPRESENTATIVE.[email or web address] Spontaneous unlabored Yes 12/25/24 16:27 TECHNICAL SERVICES REPRESENTATIVE.TNES respirations Mental status nausea No 12/25/24 16:27 TECHNICAL SERVICES REPRESENTATIVE.TNES Vomiting No 12/25/24 16:27 TECHNICAL SERVICES REPRESENTATIVE.TNES Anesthesia Postop Eval I: Fluid Summary Crystalloid volume administer 400 12/25/24 16:27 TECHNICAL SERVICES REPRESENTATIVE.TNES (ml) Colloids volume administered ( ml) Blood Product volume administered (ml) Total IV fluid infused 400 12/25/24 16:27 TECHNICAL SERVICES REPRESENTATIVE.TNES Anesthesia Postop Eval I: Summary Notes Anesthesia Complication No 12/25/24 16:27 TECHNICAL SERVICES REPRESENTATIVE.TNES Anesthesia Complication Comment: Post-operative progress note Anesthesia: Postop Eval II Evaluation Mental status: Awake Pain Level: 0 nausea: No Vomiting: No Complications Anesthesia Complication: No
[2024-12-25] MEDS: HYDROcodone Bitartrate/Apap 5/325 Tablet PO (22:08)
[2024-12-26] MEDS: Pantoprazole Sodium 80 MG in 0.9% Normal Saline (100mL Bag) 80 ML 10 MG CONT INF (00:56)
[2024-12-26] MEDS: 0.9% Saline Lock 10 ML Syringe IV ×2 (00:57→13:14)
[2024-12-26 01:35] VITALS: PULSE 74; RESP 12; O2SAT 96
[2024-12-26 03:00] VITALS: BP 107/55; PULSE 63; RESP 20; TEMP 36.6; O2SAT 96
[2024-12-26 04:00] VITALS: BMI 32.0
[2024-12-26 06:03] LABS: Hematocrit 32.3 % (40-54); Hemoglobin 10.3 g/dL (13.0-16.5); Immature Granulocytes Count 0.030 X10^3/uL (0.0-0.0); Mean Corp Hgb Conc 31.9 g/dL (32-36); Mean Corpuscular Volume 90.0 fL (80-94); Mean Platelet Vol. 13.4 fl (6.2-12.0); NRBC Flagged by Analyzer 0 % (0-5); POSITIVE COUNT YES; Platelet Count 92 K/mm3 (150-450); RBC Distribution Width CV 14.1 % (11.6-14.6); RBC Distribution Width SD 46.0 fl (35.1-43.9); Red Blood Count 3.59 M/mm3 (4.6-6.2); White Blood Count 6.3 K/mm3 (4.4-11.0)
[2024-12-26 06:11] LABS: Differential Indicated SCAN CRITERIA MET
[2024-12-26] MEDS: HYDROcodone Bitartrate/Apap 5/325 Tablet PO ×2 (06:23→14:16)
[2024-12-26 06:31] LABS: Anion Gap 9 (5-15); BUN 8 mg/dL (4-19); BUN/Creat Ratio 6.2 RATIO (10-20); Calcium,Total 8.0 mg/dL (7.6-11.0); Carbon Dioxide 22.2 mmol/L (21.0-32.0); Chloride 109 mmol/L (98-108); Estimated Creatinine Clearance 52.07 ml/min (50-250); Glucose 124 mg/dL (70-99); Magnesium 1.7 mg/dL (1.5-2.2); Potassium 3.7 mmol/L (3.3-5.1)
[2024-12-26 07:42] VITALS: O2SAT 98
[2024-12-26 08:24] VITALS: BP 126/80; PULSE 77; RESP 18; TEMP 36.5; O2SAT 96
[2024-12-26] MEDS: TICAGRELOR 90 MG TABLET PO (08:31)
[2024-12-26] MEDS: Insulin Glargine-YFGN 100 UNIT/ML Pen 10 UNIT SC (08:34)
--- NOTE | 2024-12-26 13:10 | PCM.TXEXTCAR ---
Diet Diet Order/Speech Therapy: INPATIENT Hospital Diet / Speech Therapy Order(s) 12/25/24 17:24 Diet: Cardiac - Heart Healthy Routine Orders/Code Status Routine Lab Work: CBC and BMP Code Status: Full Code DC O2, CPAP, BIPAP needs Home O2 Discharge instructions: No Therapies Physical Therapy: Eval and Treat Occupational Therapy: Eval and Treat Problem/Diagnosis (1) Coronary artery disease: Status: Acute Code(s): I25.10 - Atherosclerotic heart disease of [place] coronary artery without angina pectoris (2) GI (gastrointestinal bleed): Status: Acute Code(s): K92.2 - Gastrointestinal hemorrhage, unspecified (3) Diverticulosis: Status: Acute Code(s): K57.90 - Diverticulosis of intestine, part unspecified, without perforation or abscess without bleeding Plan 1. Acute GI bleed with mild blood loss anemia with chronic thrombocytopenia/GERD ? Continue with n.p.o. status ? Consult GI ? Awaiting endoscopy results ? He has had thrombocytopenia in the past, will monitor ? Continue with PPI 2. CAD status post stent/chronic diastolic CHF/essential HTN/HLD ? Continue with home blood pressure medications ? Will monitor make adjustments as necessary ? Continue with aspirin and Brilinta given his issues with his stent ? Continue with Lipitor 3. DM2/CKD 4 ? Monitor renal function ? Accu-Cheks ? Sliding scale insulin ? Will monitor and make adjustments as necessary 4. Anxiety/depression ? Stable ? Continue with his home medications DVT: SCDs Allergies/Procedures Done in Hospital Allergies No Known Allergies Allergy (Verified 12/23/24 23:45) Procedures: Colonoscopy and EGD Type of Care/Length of Stay Estimated LOS: Convalescent Care Less Than 30 days Type of Care Needed: Skilled Rehab Potential: Fair Prognosis: Fair Additional Orders/Day of Discharge Day of Discharge: 12/26/24 Discharge Plan Admission Admit Date/Time: 12/24/24 01:59 Attending Provider: Eladio Melendez Primary Care Provider: Victor M Luke Consulting Providers: Timothy Sexton; Tyler Aiken; Karrie Trinidad; Opal Wright; Lois Corea; Alka Leo; Alex Sanon Discharge Orders/Prescriptions Prescriptions: New hydrocodone-acetaminophen 5-325 mg Tablet 1 tab PO TID 3 Days Qty: 9 0RF Continued fluoxetine 40 mg capsule 80 mg PO DAILY 90 Days Qty: 180 magnesium oxide 400 mg (241.3 mg magnesium) tablet 800 mg PO DAILY cholecalciferol (vitamin D3) 25 mcg (1,000 unit) tablet 25 mcg PO DAILY cetirizine 10 mg tablet 5 mg PO DAILY amlodipine 5 mg tablet 5 mg PO QPM metoprolol succinate 25 mg tablet extended release 24 hr 25 mg PO DAILY Qty: 30 11RF aspirin 81 MG tablet 81 mg PO DAILY@0800 cyanocobalamin (vitamin B-12) 1,000 MCG capsule 1,000 mcg PO DAILY Qty: 0 acetaminophen 325 MG tablet 650 mg PO Q6H PRN (Reason: Pain -02/09) potassium chloride 10 mEq Tablet,Er Particles/Crystals 30 meq PO BID Qty: 0 0RF Glucerna 1.2 Ashwin 0.06-1.2 gram-kcal/mL Liquid 120 ml PO 4X/DAY Qty: 0 0RF promethazine 12.5 mg tablet 12.5 mg PO Q6H PRN (Reason: nausea and vomiting) Qty: 1 0RF ticagrelor [Brilinta] 90 mg Tablet 90 mg PO BID Qty: 60 11RF spironolactone 25 mg Tablet 25 mg PO DAILY Qty: 90 0RF Jardiance 10 mg Tablet 10 mg PO DAILY Qty: 90 0RF levothyroxine [Synthroid] 25 mcg tablet 25 mcg PO DAILY insulin degludec 100 unit/mL (3 mL) insulin pen 10 unit subcut DAILY ondansetron 4 mg tablet,disintegrating 4 mg PO TID Rx Instructions: takes before meals 0730, 1130, 1630 ondansetron 4 mg tablet,disintegrating 4 mg PO Q6H PRN (Reason: nausea and vomiting) mirtazapine [Remeron] 15 mg tablet 15 mg PO QHS nitroglycerin 0.4 mg tablet, sublingual 0.4 mg SUBLINGUAL Q5-15M PRN (Reason: CHEST PAIN) Qty: 25 3RF atorvastatin 40 mg tablet 40 mg PO QHS Qty: 90 3RF pantoprazole 40 mg tablet,delayed release (DR/EC) 40 mg PO DAILY Qty: 90 3RF furosemide 40 mg tablet 40 mg PO Q OTHER DAY Qty: 90 0RF Discontinued colchicine 0.6 mg Capsule 0.6 mg PO BID 90 Days Qty: 0 0RF Rx Instructions: Take for a total of 90 days then discontinue No Action hydrocodone-acetaminophen 5-325 mg tablet 1 tab PO TID Referrals / Follow Up: Victor M Luke DO [Primary Care Provider] - Disposition Disposition (needs filled in before D/C Order can be placed): Nursing Home Facility
--- NOTE | 2024-12-26 13:25 | CASEMGMT ---
Social Work Physician updated SW that pt is ready for discharge today. SW met with pt and they are agreeable to discharge. Pt family to transport pt to [facility]. DCA notified of discharge readiness. DCA to complete final arrangements and notifications. Disposition:[facility], skilled level of care [facility] Read
--- NOTE | 2024-12-26 13:56 | DS.PCM_ITS ---
Providers Date of Admission: 12/24/24 Primary Care Physician: Dr. Victor M Luke, Consultations 12/24/24 02:41 Consult: Gastroenterology Routine Consulting Provider: [facility] Reason for Consult: ABLA, GI bleed/BRBPR, recent STEMI w/ PCI EMERGENT Consult: No MD Notified: Yes Date Notified: 12/24/24 Time Notified: 02:00 Method of Notification: Text Reason For Visit: ABLA GI BLEED Diagnosis Discharge Diagnosis (1) Coronary artery disease: Status: Acute Code(s): I25.10 - Atherosclerotic heart disease of [place] coronary artery without angina pectoris (2) GI (gastrointestinal bleed): Status: Acute Code(s): K92.2 - Gastrointestinal hemorrhage, unspecified (3) Diverticulosis: Status: Acute Code(s): K57.90 - Diverticulosis of intestine, part unspecified, without perforation or abscess without bleeding Medications at Discharge Home Medications aspirin 81 mg tablet,delayed release 81 mg PO DAILY@0800 health maintenance 01/21/17 mirtazapine 15 mg tablet (Remeron) 15 mg PO QHS sleep 09/21/18 cyanocobalamin (vitamin B-12) 1,000 mcg capsule 1,000 mcg PO DAILY vitamin ##0 06/01/19 magnesium oxide 400 mg (241.3 mg magnesium) tablet 800 mg PO DAILY SUPPLEMENT 08/01/21 cholecalciferol (vitamin D3) 25 mcg (1,000 unit) tablet 25 mcg PO DAILY 09/16/21 fluoxetine 40 mg capsule 80 mg PO DAILY DEPRESSION 90 days #180 caps 09/16/21 acetaminophen 325 mg tablet 650 mg PO Q6H PRN Pain -02/0910/12/23 atorvastatin 40 mg tablet 40 mg PO QHS CHOLESTEROL #90 tabs 06/14/24 nitroglycerin 0.4 mg sublingual tablet 0.4 mg sublingual Q5-15M PRN CHEST PAIN #25 tabs 06/14/24 pantoprazole 40 mg tablet,delayed release 40 mg PO DAILY GERD #90 tabs 06/14/24 amlodipine 5 mg tablet 5 mg PO QPM blood pressure 10/25/24 metoprolol succinate 25 mg tablet,extended release 24 hr 25 mg PO DAILY blood pressure #30 tabs 10/25/24 ticagrelor 90 mg tablet (Brilinta) 90 mg PO BID #60 tabs 12/02/24 empagliflozin 10 mg tablet (Jardiance) 10 mg PO DAILY #90 tabs 12/06/24 spironolactone 25 mg tablet 25 mg PO DAILY #90 tabs 12/06/24 cetirizine 10 mg tablet 5 mg PO DAILY Allergic Reaction 12/12/24 nutrition tx glu intol,lac-free,soy-fiber 0.06 gram-1.2 kcal/mL liquid (Glucerna 1.2 Ashwin) 120 ml PO 4X/DAY #0 mL 12/17/24 potassium chloride 10 mEq tablet,extended release(part/cryst) 30 meq (3 x 10 mEq) PO BID #0 tabs 12/17/24 promethazine 12.5 mg tablet 12.5 mg PO Q6H PRN nausea and vomiting #1 TAB 12/17/24 furosemide 40 mg tablet 40 mg PO Q OTHER DAY #90 tabs 12/21/24 insulin degludec 100 unit/mL (3 mL) subcutaneous pen 10 unit subcut DAILY diabetes 12/24/24 levothyroxine 25 mcg tablet (Synthroid) 25 mcg PO DAILY thyroid 12/24/24 ondansetron 4 mg disintegrating tablet 4 mg PO Q6H PRN nausea and vomiting 12/24/24 ondansetron 4 mg disintegrating tablet 4 mg PO TID nausea 12/24/24 hydrocodone-acetaminophen 5-325mg 5mg-325mg 1 tab PO TID Pain 12/25/24 hydrocodone-acetaminophen 5-325mg 5mg-325mg 1 tab PO TID 3 days #9 tabs 12/26/24 Hospital Course Operations None Procedures Colonoscopy and EGD Summary of Care Provided Minutes Spent on Discharge: 35 Hospital Course: Per HPI: The patient is a 79 y/o M w/ PMHx: Obesity, COPD/asthma, Former tobacco use, Hx TIA, PAF, CAD, CKD stage IV, Diabetes mellitus type II, HFpEF, Anxiety and Depression recently discharged 12/17/2024 following evaluation and treatment of chest pain secondary to acute pericarditis and prior to this admission 12/03/24-12/06/24 secondary to coronary vasospasm following recent inferior STEMI as well as SUSAN on CKD with initial STEMI presentations 11/30/24 with demonstrated subacute stent thrombosis the proximal RCA status post 1 angioplasty as well as thrombus embolization of the right posterolateral ventricle branch status post 2 new drug-eluting stents with Plavix discontinued and transition to Brilinta at that time with recent ED evaluation 12/20/2024 secondary to bright red blood per rectum noted to be in his stools for nearly 1 week with evaluation at that time discussions per ED physician with cardiology attributing the GI bleed secondary to recent colchicine for the pericarditis which was stopped with plan follow-up outpatient with gastroenterology now re-presenting to the [facility] ED on 12/24/2024 with continued bright red blood per rectum mixed with the stool with concerns for increasing amount per SNF with no associated pain nor any current complaints of lightheadedness or dizziness, dyspnea or chest pain; however, he does report at the SNF he would occasional after notable exertion have lightheadedness which would kelvin with rest. He has had ongoing issues with nausea requiring antiemetics constantly over the last 2-3 weeks. Workup in the ED included T97.9, heart rate 73, BP 110/71, respiratory rate 18, 99% on room air with most recent repeat vitals T97.9, heart rate 58, BP 104/72, respiratory rate 18, 97% on room air, CBC with WC 8.9, hemoglobin 11.8, MCV 89.5, platelet 139 without marked shift, unremarkable coags, BMP with, lactate 8.1, BUN/creatinine 17/1.67, GFR 41. Hospital Course: 1. Acute GI bleed with mild blood loss anemia exacerbated by antiplatelet medication with chronic thrombocytopenia/GERD?79-year-old male presents to the hospital from SNF with bright red blood per rectum. EGD and colonoscopy were fairly unremarkable, did demonstrate a nonbleeding gastric ulcer so we will increase his Protonix from daily dosing to twice daily dosing. Hemoglobin has stabilized so I do recommend outpatient monitoring and follow-up with GI when able from the correction. I discussed with him the plan for discharge today and he expressed understanding of the risks and benefits of going back to the correction and would like to go today. Of note on admission his hemoglobin was 11.8 and he had serial lightest H&H is unfortunately every 4 hours so his hemoglobin dropped to 10.2 at its lowest. Today is 10.3. Unfortunately given his recent cardiac stent issues, he will have to remain on aspirin and Brilinta though his colchicine was discontinued for his previous episode of pericarditis. 2. Coronary artery disease status post stent, chronic diastolic CHF, essential hypertension, hyperlipidemia, type 2 diabetes, CKD 4, anxiety, depression all chronic medical conditions complicate his care. His home medications were continued where appropriate Physical Exam Narrative General: Alert, Oriented x3, Cooperative, No apparent distress HEENT: Atraumatic, PERRLA, EOMI, Normocephalic Oral: Moist Mucosa Neck: Supple, No JVD Lungs: Clear to auscultation, Normal air movement, No rhonchi, No wheeze, No rales Cardiovascular: Regular rate, Regular Rhythm, Normal S1, Normal S2, No murmurs Abdomen: Soft, Non Tender, Non-Distended, No Hepato-splenomegaly Extremities: Trace edema, Capillary Refill Less than 3 Seconds Skin: No rashes, No breakdown Musculoskeletal: No Tenderness to Palpation of Joints or Extremities Neurological: No focal neurological deficits, Motor Exam 5/5 strength throughout, Sensory exam intact to light touch and pain Psych/Mental Status: Normal Affect, Appropriate Weight / BMI Weight Weight: 216 lb 11.43 oz Body Mass Index (BMI) 32.0 ABG / Lab / Microbiology Data 12/26/24 05:16 12/26/24 05:16 Laboratory: Laboratory Results - last 24 hr 12/25/24 17:08: POC Glucose 81 12/25/24 22:06: POC Glucose 140 H 12/26/24 05:16: WBC 6.3, RBC 3.59 L, Hgb 10.3 L, Hct 32.3 L, MCV 90.0, MCH 28.7, MCHC 31.9 L, RDW Std Deviation 46.0 H, RDW Coeff of Adrian 14.1, Plt Count 92 L, M PV 13.4 H, Immature Gran % (Auto) 0.500, Neut % (Auto) 76.2 H, Lymph % (Auto) 12.6 L, [place]henry % (Auto) 9.5, Eos % (Auto) 0.9, Baso % (Auto) 0.3, Absolute Neuts (auto) 4.8, Absolute Lymphs (auto) 0.80 L, Nucleated RBC % 0, Platelet Estimate SLT DEC, Sodium 140, Potassium 3.7, Chloride 109 H, Carbon Dioxide 22.2, Anion Gap 9, BUN 8, Creatinine 1.33 H, Estim Creat Clear Calc 52.07, Est GFR (MDRD) Non-Af 54 L, BUN/Creatinine Ratio 6.2 L, Glucose 124 H, Calcium 8.0, Phosphorus 2.2 L, Magnesium 1.7 12/26/24 06:21: POC Glucose 132 H 12/26/24 11:28: POC Glucose 131 H Microbiology: Microbiology 12/24/24 00:58 Stool Stool Occult Blood (JESSICA) - Final Occult Blood Positive D/C Instructions DC O2, CPAP, BIPAP Needs Home O2 Discharge instructions: No Meaningful Use Info Meaningful Use Meaningful Use Diagnoses (Choose all that apply): None applicable Discharge Plan Admission Admit Date/Time: 12/24/24 01:59 Attending Provider: Eladio Melendez Primary Care Provider: Victor M Luke Consulting Providers: Timothy Sexton; Tyler Aiken; Karrie Trinidad; Opal Wright; Lois Corea; Alka Leo; Alex Sanon Discharge Orders/Prescriptions Prescriptions: New hydrocodone-acetaminophen 5-325 mg Tablet 1 tab PO TID 3 Days Qty: 9 0RF Continued fluoxetine 40 mg capsule 80 mg PO DAILY 90 Days Qty: 180 magnesium oxide 400 mg (241.3 mg magnesium) tablet 800 mg PO DAILY cholecalciferol (vitamin D3) 25 mcg (1,000 unit) tablet 25 mcg PO DAILY cetirizine 10 mg tablet 5 mg PO DAILY amlodipine 5 mg tablet 5 mg PO QPM metoprolol succinate 25 mg tablet extended release 24 hr 25 mg PO DAILY Qty: 30 11RF aspirin 81 MG tablet 81 mg PO DAILY@0800 cyanocobalamin (vitamin B-12) 1,000 MCG capsule 1,000 mcg PO DAILY Qty: 0 acetaminophen 325 MG tablet 650 mg PO Q6H PRN (Reason: Pain 1-02/09) potassium chloride 10 mEq Tablet,Er Particles/Crystals 30 meq PO BID Qty: 0 0RF Glucerna 1.2 [place] 0.06-1.2 gram-kcal/mL Liquid 120 ml PO 4X/DAY Qty: 0 0RF promethazine 12.5 mg tablet 12.5 mg PO Q6H PRN (Reason: nausea and vomiting) Qty: 1 0RF ticagrelor [Brilinta] 90 mg Tablet 90 mg PO BID Qty: 60 11RF spironolactone 25 mg Tablet 25 mg PO DAILY Qty: 90 0RF Jardiance 10 mg Tablet 10 mg PO DAILY Qty: 90 0RF levothyroxine [Synthroid] 25 mcg tablet 25 mcg PO DAILY insulin degludec 100 unit/mL (3 mL) insulin pen 10 unit subcut DAILY ondansetron 4 mg tablet,disintegrating 4 mg PO TID Rx Instructions: takes before meals 0730, 1130, 1630 ondansetron 4 mg tablet,disintegrating 4 mg PO Q6H PRN (Reason: nausea and vomiting) mirtazapine [Remeron] 15 mg tablet 15 mg PO QHS nitroglycerin 0.4 mg tablet, sublingual 0.4 mg SUBLINGUAL Q5-15M PRN (Reason: CHEST PAIN) Qty: 25 3RF atorvastatin 40 mg tablet 40 mg PO QHS Qty: 90 3RF pantoprazole 40 mg tablet,delayed release (DR/EC) 40 mg PO DAILY Qty: 90 3RF furosemide 40 mg tablet 40 mg PO Q OTHER DAY Qty: 90 0RF Discontinued colchicine 0.6 mg Capsule 0.6 mg PO BID 90 Days Qty: 0 0RF Rx Instructions: Take for a total of 90 days then discontinue No Action hydrocodone-acetaminophen 5-325 mg tablet 1 tab PO TID Referrals / Follow Up: Victor M Luke DO [Primary Care Provider] - Disposition Disposition (needs filled in before D/C Order can be placed): Residential Facility Charges/Coding Visit Charges Inpatient E&M: 45417 Disch Hosp >30min
[2024-12-26 14:10] VITALS: BP 104/68; PULSE 88; RESP 18; TEMP 37.1; O2SAT 95
[2024-12-26 14:39] VITALS: BP 104/68; PULSE 88; RESP 18; TEMP 37.1; O2SAT 95
--- NOTE | 2024-12-26 14:53 | NURSING ---
report called to [facility]
--- NOTE | 2024-12-26 14:59 | PHA.DC.MR.R ---
Pharmacy [place] Med Reconciliation Pharmacy Service has performed discharge medication reconciliation for this patient. The patient's discharge medication list was reviewed for discrepancies and discrepancies were resolved. Medications at Discharge Home Medications aspirin 81 mg tablet,delayed release 81 mg PO DAILY@0800 health maintenance 01/21/17 mirtazapine 15 mg tablet (Remeron) 15 mg PO QHS sleep 09/21/18 cyanocobalamin (vitamin B-12) 1,000 mcg capsule 1,000 mcg PO DAILY vitamin ##0 06/01/19 magnesium oxide 400 mg (241.3 mg magnesium) tablet 800 mg PO DAILY SUPPLEMENT 08/01/21 cholecalciferol (vitamin D3) 25 mcg (1,000 unit) tablet [address] 09/16/21 fluoxetine 40 mg capsule 80 mg PO DAILY DEPRESSION 90 days #180 caps 09/16/21 acetaminophen 325 mg tablet 650 mg PO Q6H PRN Pain 1-02/0910/12/23 atorvastatin 40 mg tablet 40 mg PO QHS CHOLESTEROL #90 tabs 06/14/24 nitroglycerin 0.4 mg sublingual tablet 0.4 mg sublingual Q5-15M PRN CHEST PAIN #25 tabs 06/14/24 pantoprazole 40 mg tablet,delayed release 40 mg PO DAILY GERD #90 tabs 06/14/24 amlodipine 5 mg tablet 5 mg PO QPM blood pressure 10/25/24 metoprolol succinate 25 mg tablet,extended release 24 hr 25 mg PO DAILY blood pressure #30 tabs 10/25/24 ticagrelor 90 mg tablet (Brilinta) 90 mg PO BID #60 tabs 12/02/24 empagliflozin 10 mg tablet (Jardiance) 10 mg PO DAILY #90 tabs 12/06/24 spironolactone 25 mg tablet 25 mg PO DAILY #90 tabs 12/06/24 cetirizine 10 mg tablet 5 mg PO DAILY Allergic Reaction 12/12/24 nutrition tx glu intol,lac-free,soy-fiber 0.06 gram-1.2 kcal/mL liquid (Glucerna 1.2 [place]win) 120 ml PO 4X/DAY #0 mL 12/17/24 potassium chloride 10 mEq tablet,extended release(part/cryst) 30 meq (3 x 10 mEq) PO BID #0 tabs 12/17/24 promethazine 12.5 mg tablet 12.5 mg PO Q6H PRN nausea and vomiting #1 TAB 12/17/24 furosemide 40 mg tablet 40 mg PO Q OTHER DAY #90 tabs 12/21/24 insulin degludec 100 unit/mL (3 mL) subcutaneous pen 10 unit subcut DAILY diabetes 12/24/24 levothyroxine 25 mcg tablet (Synthroid) 25 mcg PO DAILY thyroid 12/24/24 ondansetron 4 mg disintegrating tablet 4 mg PO Q6H PRN nausea and vomiting 12/24/24 ondansetron 4 mg disintegrating tablet 4 mg PO TID nausea 12/24/24 hydrocodone-acetaminophen 5-325mg 5mg-325mg 1 tab PO TID 3 days #9 tabs 12/26/24
== END 2024-12-26 15:16 | disposition skilled nursing facility (03) | DRG 813 ==
LOC: ED 12-24 01:55 → PCU 12-24 02:04
PROVIDERS: Internal Medicine; Internal Medicine Gastroenterology; Admitting Provider Family Medicine; Emergency Provider Emergency Medicine; PCP Family Medicine; Visit Provider Family Medicine
PROC: 0DJD8ZZ Inspection of Lower Intestinal Tract, Via Natural or Artificial Opening Endoscopic (ICD-10-PCS; CPT 45378; principal; 2024-12-25 16:25)
DX: D68.32 Hemorrhagic disorder due to extrinsic circulating anticoagulants (principal); E87.20 Acidosis, unspecified; N18.4 Chronic kidney disease, stage 4 (severe); I13.0 Hypertensive heart and chronic kidney disease with heart failure and stage 1 through stage 4 chronic kidney disease, or unspecified chronic kidney disease; D62 Acute posthemorrhagic anemia; I50.32 Chronic diastolic (congestive) heart failure; D69.6 Thrombocytopenia, unspecified; E11.22 Type 2 diabetes mellitus with diabetic chronic kidney disease; J44.9 Chronic obstructive pulmonary disease, unspecified; F32.A Depression, unspecified; E66.9 Obesity, unspecified; K25.9 Gastric ulcer, unspecified as acute or chronic, without hemorrhage or perforation; E78.5 Hyperlipidemia, unspecified; K21.9 Gastro-esophageal reflux disease without esophagitis; K63.5 Polyp of colon; I25.2 Old myocardial infarction; F41.9 Anxiety disorder, unspecified; G47.33 Obstructive sleep apnea (adult) (pediatric); I25.10 Atherosclerotic heart disease of native coronary artery without angina pectoris; K57.90 Diverticulosis of intestine, part unspecified, without perforation or abscess without bleeding; Z79.84 Long term (current) use of oral hypoglycemic drugs; Z87.891 Personal history of nicotine dependence; Z95.5 Presence of coronary angioplasty implant and graft; Z79.02 Long term (current) use of antithrombotics/antiplatelets; Z86.16 Personal history of COVID-19; Z79.899 Other long term (current) drug therapy; Z79.890 Hormone replacement therapy; Z79.82 Long term (current) use of aspirin; Z86.73 Personal history of transient ischemic attack (TIA), and cerebral infarction without residual deficits; T45.525A Adverse effect of antithrombotic drugs, initial encounter
CPT/HCPCS: 36415; 80048; 80053; 82274; 82962; 83605; 83735; 84100; 85014; 85018; 85025; 85610; 85730; 88305; 88342; 93005; 94002; 94003; 94660; 97161; 97165; 97530; 97535; 99285; A4216; J2405

== ENCOUNTER 2025-01-01 08:52 | Emergency (ER) | payer MEDICARE, OTHER, SELFPAY ==
[2018-08-03 13:04] VITALS: BMI 19.8
[2025-01-01 08:53] VITALS: BP 105/73; PULSE 80; RESP 18; TEMP 36.9; O2SAT 98; BMI 34.0
--- NOTE | 2025-01-01 09:00 | ED.VIS.CHEST ---
HPI History of Present Illness Chief Complaint: Chest Pain Informant: patient Onset/Context/Timing Onset: Yesterday Activity at onset: gradual Timing: Intermittent Quality: Positive for Dull Location: Left Chest Worsened By: Nothing Relieved By: Nothing Associated Symptoms: Positive for Nausea, Dyspnea and Lightheadedness; Negative for Vomiting, Diaphoresis, Cough, Fever, Acid Reflux or Palpitations Narrative Narrative: Patient presents with chest pain for blood pressure that was noticed this morning. Patient states that prior to receiving his physical therapy, the care home noticed that his blood pressure was low. Patient states she has been having intermittent symptoms since yesterday. Patient describes his pain as dull. Patient states nothing makes it worse and nothing makes it better. Patient states it is over the left chest. Patient does admit to some shortness of breath. Patient denies any cough or fever. Patient admits to some nausea but denies any vomiting or diarrhea. CVD Risk Factors: Positive for Hypertension, Diabetes and Hypercholesterolemia; Negative for Family History 1' </=55 or Smoking PE Risk Factors: Negative for Recent Travel/Surgery, Recent Immobilization, Prior DVT or PE or Cancer [facility] Medical History Obesity (BMI 30-39.9) Acute kidney injury superimposed on stage 4 chronic kidney disease Asthma Wheezing Abnormal stress test Bilateral lower extremity edema Pericardial effusion Chest pain CKD (chronic kidney disease) stage 4, GFR 15-29 ml/min Central sleep apnea Diastolic heart failure Recent ST elevation myocardial infarction (STEMI) Chest pain History of acute inferior wall MT Acute ST elevation myocardial infarction (STEMI) of inferior wall Anxiety Depression Diabetes Kidney disease Former smoker Atrial fibrillation Myocardial infarct Coronary artery disease Hypertension TIA (transient ischemic attack) Anemia Shortness of breath Unstable angina Fatigue Syncope Left-sided weakness History of COVID-19 Presence of stent in coronary artery (~08/31/22) Dyslipidemia Diabetes mellitus Chronic kidney disease Coronary artery disease Angina pectoris Abnormal PFT Chest heaviness Palpitations DEAN (dyspnea on exertion) Dizziness Leg pain Cough Exposure to COVID-19 virus Nonhealing nonsurgical wound with fat layer exposed Laceration without foreign body of scalp, subsequent encounter Acute left-sided weakness Essential hypertension CHF (congestive heart failure) History of melanoma Obesity (BMI 35.0-39.9 without comorbidity) CAD (coronary artery disease) 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.9) COPD (chronic obstructive pulmonary disease) TIA (transient ischemic attack) Obstructive sleep apnea Atherosclerotic heart disease [place] coronary artery w/angina pectoris Type 2 diabetes mellitus without complications Hyperlipidemia Obesity Home Medications ?Medication ?Instructions ?Recorded ?Last Taken ?Type aspirin 81 mg tablet,delayed 81 mg PO DAILY@0800 health 01/21/17 10/11/23 History release maintenance mirtazapine 15 mg tablet (Remeron) 15 mg PO QHS sleep 09/21/18 10/11/23 History magnesium oxide 400 mg (241.3 mg 800 mg PO DAILY SUPPLEMENT 08/01/21 10/11/23 History magnesium) tablet cholecalciferol (vitamin D3) [address] 09/16/21 10/11/23 History mcg (1,000 unit) tablet fluoxetine 40 mg capsule 80 mg PO DAILY DEPRESSION 90 days 09/16/21 10/11/23 History #180 caps acetaminophen 325 mg tablet 650 mg PO Q6H PRN Pain 1-02/0910/12/23 Unknown History atorvastatin 40 mg tablet 40 mg PO QHS CHOLESTEROL #90 tabs 06/14/24 Unknown Rx nitroglycerin 0.4 mg sublingual 0.4 mg sublingual Q5-15M PRN CHEST 06/14/24 Unknown Rx tablet PAIN #25 tabs pantoprazole 40 mg tablet,delayed 40 mg PO DAILY GERD #90 tabs 06/14/24 Unknown Rx release amlodipine 5 mg tablet 5 mg PO QPM blood pressure 10/25/24 Unknown History metoprolol succinate 25 mg 25 mg PO DAILY blood pressure #30 10/25/24 Unknown Rx tablet,extended release 24 hr tabs ticagrelor 90 mg tablet (Brilinta) 90 mg PO BID #60 tabs 12/02/24 Unknown Rx empagliflozin 10 mg tablet 10 mg PO DAILY #90 tabs 12/06/24 Unknown Rx (Jardiance) spironolactone 25 mg tablet 25 mg PO DAILY #90 tabs 12/06/24 Unknown Rx cetirizine 10 mg tablet 5 mg PO DAILY Allergic Reaction 12/12/24 Unknown History potassium chloride 10 mEq 30 meq (3 x 10 mEq) PO BID #0 tabs 12/17/24 Unknown Rx tablet,extended release(part/cryst) promethazine 12.5 mg tablet 12.5 mg PO Q6H PRN nausea and 12/17/24 Unknown Rx vomiting #1 TAB furosemide 40 mg tablet 40 mg PO Q OTHER DAY #90 tabs 12/21/24 Unknown Rx insulin degludec 100 unit/mL (3 10 unit subcut DAILY diabetes 12/24/24 Unknown History mL) subcutaneous pen levothyroxine 25 mcg tablet 25 mcg PO DAILY thyroid 12/24/24 Unknown History (Synthroid) ondansetron 4 mg disintegrating 4 mg PO Q6H PRN nausea and vomiting 12/24/24 Unknown History tablet hydrocodone-acetaminophen 5-325mg 1 tab PO TID 20 days #60 tabs 12/28/24 Unknown Rx 5mg-325mg Lactobacillus rhamnosus GG 10 1 cap PO DAILY 01/01/25 Unknown History billion cell capsule (Culturelle) doxycycline hyclate 100 mg capsule 100 mg PO BID uti 01/01/25 Unknown History phenylephrine 0.25 %-mineral oil 1 applic OK 4XD 01/01/25 Unknown History 14 %-petrolatm 74.9 % rectal ointment (Preparation H) ranolazine 500 mg tablet,extended 500 mg PO BID 01/01/25 Unknown History release,12 hr witch chito leaf (hamamelis) 1 applic topical 4XD 01/01/25 Unknown History (Pre-Moistened Medicated Wipes topical pads) Allergy/AdvReac Type Severity Reaction Status Date / Time No Known Allergies Allergy Verified 01/01/25 08:53 Family History Father Parkinsons disease Prostate cancer Mother Osteoporosis Surgical History Presence of coronary angioplasty implant and graft (11/27/24) History of tympanostomy tube placement History of percutaneous transluminal coronary angioplasty (08/18/18) History of herniorrhaphy Hx of cholecystectomy History of tonsillectomy History of prostatectomy Social History household members: spouse and none housing: care home Smoking Status: Former smoker quit date: 05/03/98 pack-years: 50 how long ago did patient quit smokin years ago alcohol intake: never substance use type: does not use caffeine: Yes Type: coffee and tea Number of servings: 6 ROS ROS ED Constitutional Constitutional ED: Denies chills or fever(s) Eyes Eyes: Reports blurry vision; Denies change in vision ENT ENT ED: Denies rhinorrhea or sore throat Cardiovascular Cardiovascular: Reports chest pain; Denies palpitations Respiratory/Chest Respiratory/Chest: Reports dyspnea; Denies cough Gastrointestinal Gastrointestinal: Denies nausea or vomiting Genitourinary Genitourinary ED: Reports urinary frequency; Denies dysuria or hematuria Musculoskeletal Musculoskeletal: Denies back pain or neck pain Integumentary Denies abscess or rash Neurologic Neurologic: Denies headache(s) or weakness Allergic/Immunologic Allergic/Immunologic ED: Denies mouth swelling or urticaria EXAM Physical Exam Const Vital Signs: 01/01/25 08:53 01/01/25 09:21 01/01/25 09:52 Temperature 98.5 F Temperature Source Oral Pulse Rate 80 70 Respiratory Rate 18 18 Blood Pressure 105/73 103/54 L Blood Pressure Mean 83 70 Pulse Ox 98 98 Oxygen Delivery Method Room Air Room Air Room Air 01/01/25 11:14 Temperature Temperature Source Pulse Rate 89 Respiratory Rate 16 Blood Pressure 107/74 Blood Pressure Mean 85 Pulse Ox 98 Oxygen Delivery Method Room Air Positive well nourished and well developed General Appearance ED: well developed and NAD HEENT Reports moist mucous membranes Neck supple and no JVD Chest Wall palpation of chest normal Resp normal respiratory effort and clear to auscultation bilaterally Cardio regular rate and regular rhythm GI soft to palpation, non-tender and non-distended Neuro oriented x3, CN's II-XII intact bilaterally and no sensory deficits noted Sensorium / Orientation: awake and alert Motor Exam: strength 5/5 throughout Psych mental status grossly normal Heart Score History: Slightly/Non-Suspicious ECG: Nonspecific Repolarization Age: >/= 65 years Risk Factors: >/= 3 Risk Factors or History of CAD Score: 5 MDM MDM MDM Narrative Medical decision making narrative: Differential diagnosis includes cardiac dysrhythmia, cardiac ischemia, pneumonia, bronchitis, anemia, electrolyte abnormality, and anxiety. EKG will be obtained to assess for cardiac dysrhythmia and cardiac ischemia. Chest x-ray will be obtained to assess for pneumonia or bronchitis. CBC will be obtained to assess for leukocytosis and anemia. Basic metabolic profile will be obtained to assess for electrolyte abnormality and renal function. High-sensitivity troponin will be obtained to assess for cardiac ischemia. 2-hour repeat high-sensitivity troponin will be obtained to assess for ongoing cardiac ischemia. History & Record Review Additional record(s) reviewed:: Prior inpatient record, Prior outpatient record, Prior ED visit and Prior labs Lab Data Attestation: I reviewed the patient's lab results. Lab results narrative: CBC was reviewed. There is a mild anemia with a hemoglobin of 11.1 and hematocrit 35.9. These are increased from previous results. Basic metabolic profile was reviewed. Creatinine was slightly elevated at 1.36. This is consistent with previous results. Initial high-sensitivity troponin was reviewed and was elevated at 119. 2-hour repeat high-sensitivity troponin was reviewed and was 106. These are still improving from previous results. Labs: Laboratory Results - last 24 hr 01/01/25 01/01/25 08:55 10:56 WBC 6.4 RBC 3.91 L Hgb 11.1 L Hct 35.9 L MCV 91.8 MCH 28.4 MCHC 30.9 L RDW Std Deviation 50.7 H RDW Coeff of [place] 15.5 H Plt Count 142 L MPV 12.8 H Immature Gran % (Auto) 0.300 Neut % (Auto) 75.5 H Lymph % (Auto) 12.6 L [place] % (Auto) 9.7 Eos % (Auto) 1.6 Baso % (Auto) 0.3 Absolute Neuts (auto) 4.8 Absolute Lymphs (auto) 0.81 L Nucleated RBC % 0 Sodium 140 Potassium 4.2 Chloride 106 Carbon Dioxide 22.5 Anion Gap 11 BUN 15 Creatinine 1.36 H Estim Creat Clear Calc 52.44 Est GFR (MDRD) Non-Af 53 L BUN/Creatinine Ratio 10.7 Glucose 142 H Calcium 8.9 Troponin T High Sens 119 H* D Troponin T Hi Sens 2 Hr 106 H* Radiography Chest X-Ray - ED: 1 View, Read by ED Physician, Read by Radiologist and No Acute Disease Diagnostic Testing: Clinical Impression(s) from Imaging Studies Chest X-Ray 01/01/25 09:14 IMPRESSION: No acute cardiopulmonary process. Reading Location: [facility] Portable 1 view chest x-ray was obtained. On my independent interpretation, lung kim are clear. There is normal cardiac silhouette. Bony thorax is normal. There is no acute process noted. Radiologist also interpreted the x-ray and agrees. EKG Initial EKG: Attestation: I personally reviewed and interpreted this EKG as follows: Interpretation: Sinus Rhythm (80) and Non-Specific ST Changes Comments: EKG was obtained. On my independent interpretation, it showed a normal sinus rhythm with a rate of 80. OK interval, QRS interval, and QTc intervals were all normal. [place] was normal. There are nonspecific ST-T wave changes. Prior EKG tracings: available for review Prior: Unchanged (12/25/2024) Treatment and Re-Evaluation :: Patient had aspirin prior to arrival. Patient was advised of his findings. Patient is feeling better on reevaluation. Since the troponins are continuing to trend downward from his values when he had his STEMI earlier this month, I do not feel there is worsening cardiac disease at this time. Patient was instructed to follow-up with his primary care physician in 5 to 7 days. Patient and spouse understood and were agreeable with the plan. All questions were answered. Discharge Plan Triage Chief Complaint: Chest Pain ED Provider: Shaan Hirsch Dx/Rx/DC Orders Clinical Impression: Chest pain, Coronary artery disease Instructions: ED Chest Pain, Uncertain Cause Prescriptions: No Action fluoxetine 40 mg capsule 80 mg PO DAILY 90 Days Qty: 180 magnesium oxide 400 mg (241.3 mg magnesium) tablet 800 mg PO DAILY cholecalciferol (vitamin D3) 25 mcg (1,000 unit) tablet 25 mcg PO DAILY cetirizine 10 mg tablet 5 mg PO DAILY amlodipine 5 mg tablet 5 mg PO QPM metoprolol succinate 25 mg tablet extended release 24 hr 25 mg PO DAILY Qty: 30 11RF aspirin 81 MG tablet 81 mg PO DAILY@0800 acetaminophen 325 MG tablet 650 mg PO Q6H PRN (Reason: Pain 1-02/09) potassium chloride 10 mEq Tablet,Er Particles/Crystals 30 meq PO BID Qty: 0 0RF promethazine 12.5 mg tablet 12.5 mg PO Q6H PRN (Reason: nausea and vomiting) Qty: 1 0RF ticagrelor [Brilinta] 90 mg Tablet 90 mg PO BID Qty: 60 11RF spironolactone 25 mg Tablet 25 mg PO DAILY Qty: 90 0RF Jardiance 10 mg Tablet 10 mg PO DAILY Qty: 90 0RF levothyroxine [Synthroid] 25 mcg tablet 25 mcg PO DAILY insulin degludec 100 unit/mL (3 mL) insulin pen 10 unit subcut DAILY ondansetron 4 mg tablet,disintegrating 4 mg PO Q6H PRN (Reason: nausea and vomiting) Pre-Moistened Medicated Wipes Pad 1 applic topical 4XD Preparation H 0.25-14-74.9 % ointment 1 applic OK 4XD ranolazine 500 mg tablet extended release 12 hr 500 mg PO BID Culturelle 10 billion cell capsule 1 cap PO DAILY doxycycline hyclate 100 mg capsule 100 mg PO BID mirtazapine [Remeron] 15 mg tablet 15 mg PO QHS nitroglycerin 0.4 mg tablet, sublingual 0.4 mg SUBLINGUAL Q5-15M PRN (Reason: CHEST PAIN) Qty: 25 3RF atorvastatin 40 mg tablet 40 mg PO QHS Qty: 90 3RF pantoprazole 40 mg tablet,delayed release (DR/EC) 40 mg PO DAILY Qty: 90 3RF furosemide 40 mg tablet 40 mg PO Q OTHER DAY Qty: 90 0RF hydrocodone-acetaminophen 5-325 mg tablet 1 tab PO TID 20 Days Qty: 60 0RF Primary Care Provider: Victor M Luke Referrals: Victor M Luke DO [Primary Care Provider] - 5-7 Days Print Language: Telugu Disposition Disposition: Home, Self Care
--- NOTE | 2025-01-01 09:14 | EKG12_ITS ---
Test Reason : Blood Pressure : */* mmHG Vent. Rate : 80 BPM Atrial Rate : 80 BPM P-R Int : 188 ms QRS Dur : 84 ms QT Int : 412 ms P-R-T Axes : 61 4 -37 degrees QTcB Int : 475 ms Normal sinus rhythm Low voltage QRS Inferior infarct (cited on or before 25-Dec-2024) ,possibly recent Abnormal ECG Confirmed by George Ríos ([id number]), news editor MARÍA AMBROSIO ([id number]) on 01/02/2025 10:47:59 AM Referred By: Confirmed By: George Ríos
--- NOTE | 2025-01-01 09:14 | RAD_ITS ---
PROCEDURE: CHEST 1 VIEW (PORTABLE) 01/01/2025 REASON FOR EXAM: CHEST PAIN TECHNIQUE: Frontal view of the chest. COMPARISON: December 20, 2024 FINDINGS: Hardware: Lower cervical spine fusion. Suture anchors proximal left humerus. EKG leads and monitoring device are seen. Heart: Mildly enlarged. Coronary artery atherosclerosis. Aorta is atherosclerotic. Lungs: Subsegmental atelectasis or scarring left lung base. Otherwise, the lungs are clear. Bones: Degenerative changes are identified within the thoracic spine. RAD/Chest 1 View (Portable) IMPRESSION: No acute cardiopulmonary process. Reading Location: [id number]
[2025-01-01 09:28] LABS: Hematocrit 35.9 % (40-54); Hemoglobin 11.1 g/dL (13.0-16.5); Immature Granulocytes Count 0.020 X10^3/uL (0.0-0.0); Mean Corp Hgb Conc 30.9 g/dL (32-36); Mean Corpuscular Volume 91.8 fL (80-94); Mean Platelet Vol. 12.8 fl (6.2-12.0); NRBC Flagged by Analyzer 0 % (0-5); Platelet Count 142 K/mm3 (150-450); RBC Distribution Width CV 15.5 % (11.6-14.6); RBC Distribution Width SD 50.7 fl (35.1-43.9); Red Blood Count 3.91 M/mm3 (4.6-6.2); White Blood Count 6.4 K/mm3 (4.4-11.0)
--- OUTSIDE RECORDS SUMMARY | 2025-01-01 09:32 | XMS RPT_ITS | CCD ---
Author Organization [facility] Care Team Providers Care Mental Health Unit Lead Psychologist Name Role Phone Unavailable Unavailable Unavailable Marycarmen Rodriguez DO Primary Care Provider [phone] Marycarmen Rodriguez DO Primary Care Provider [phone] MIN HOWARD Referring Unavailable MARYCARMEN RODRIGUEZ Primary [...] Care Provider Dr. Marycarmen Rodriguez Referring Provider Mike PEREA, YRN Laguna Attending Provider Dr. Darnell Corral Attending Provider Mike HOSPICE SOCIAL WORKER, HOSPICE SOCIAL WORKER-C Luz Elena Referring Provider Mike HOSPICE SOCIAL WORKER, HOSPICE SOCIAL WORKER-C Luz Elena Other Provider [phone] Dr. John Palacios Attending Provider Mike HOSPICE SOCIAL WORKER, HOSPICE SOCIAL WORKER-C Luz Elena Referring Provider Dr. Marycarmen Rodriguez Primary Care Provider [phone] Dr. Marycarmen Rodriguez Referring Provider Mike HOSPICE SOCIAL WORKER, HOSPICE SOCIAL WORKER-C Luz Elena Attending Provider Dr. Zen East Attending Provider Dr. Marycarmen Rodriguez Primary Care Provider [phone] Marycarmen Rodriguez Referring Provider Dr. Merritt Persaud Attending Provider PARISH Youssef Attending Provider [phone] Mike PEREA, ELIAZAR-C Luz Elena Attending Provider [...] Provider Dr. Aimee Cummins Attending Provider Mike HOSPICE SOCIAL WORKER, YRN Laguna Attending Provider Mostrohit, Abraham Admitting Unavailable Mosteller, Abraham Consulting Unavailable Jose Armando, Jose Referring Unavailable Nickie Danielson Attending Unavailable Elvis Olvera Consulting Unavailable Adeli, Amir Consulting Unavailable Hindjames, Faye Consulting Unavailable Petrona Vargas Consulting Unavailable Candice Barlow Consulting Unavailable Diogenes Sheehan Consulting Unavailable Cari Shultz Consulting Unavailable Sherman Rouse Consulting Unavailable Seymour John Consulting Unavailable Jamar Tapia Consulting Unavailable Chrissy Mccallum Consulting Unavailable Fletcher Good Consulting Unavailable Sarah Beth Candelaria Consulting Unavailable RidJody lee Consulting Unavailable Zaghjaylinh, Mhd David Consulting UnavailMin Woodruff Consulting Unavailable Bernard, Rami Consulting Unavailable Zay Alanis Consulting Unavailable Kristina Danielson Consulting Unavailable Ernestina Milan Consulting Unavailable Nickie Danielson Consulting Unavailable Marycarmen Rodriguez Primary Care Unavailable Jose Armando, Jose Attending Unavailable Tyler Aiken Attending Unavailable Ramonita Herron Admitting Unavailable Marycarmen Rodriguez Primary Care Unavailable Marycarmen Marlow Attending Unavailable Azouz, Samer Consulting Unavailable Ramonita Herron Consulting Unavailable Marycarmen Marlow Consulting Unavailable Alka Leo Attending Unavailable Mosteller, Abraham Admitting Unavailable Mosteller, Abraham Consulting Unavailable Mostafa, Mickey Referring Unavailable Jennifer, Marycarmen Primary Care Unavailable Gayle, Marcin Attending Unavailable Mostafa, Mickey Consulting Unavailable Gopal Ramonita Consulting Unavailable Gayle, Marcin Attending Unavailable Mostrohit, Abraham Consulting Unavailable Mosteller, Abraham Admitting Unavailable Mostafa, Mickey Referring Unavailable Gayle, Sullivan Attending Unavailable Marycarmen Rodriguez Primary Care Unavailable Mostafa, Mickey Consulting Unavailable Gopal, Ramonita Consulting Unavailable Alex Sanon Consulting Unavailable Alex Sanon Attending Unavailable Alex Sanon Consulting Unavailable Azouz, Samer Attending Unavailable Jennifer, Marycarmen Primary Care Unavailable Jennifer, Marycarmen Primary Care Unavailable Jennifer, Marycarmen Referring Unavailable Maren Olivas Attending Unavailable Jennifer, Marycarmen Primary Care Unavailable Roof HOSPICE SOCIAL WORKER, Gustabo H Attending Unavailable Roof HOSPICE SOCIAL WORKER, Gustabo H Referring Unavailable Jennifer, Marycarmen Primary Care Unavailable Roof HOSPICE SOCIAL WORKER, Gustabo H Attending Unavailable Roof HOSPICE SOCIAL WORKER, Gustabo H Referring Unavailable Jennifer, Marycarmen Primary Care Unavailable Brooks Carpenter Attending Unavailable Brooks Carpenter Referring Unavailable Roof HOSPICE SOCIAL WORKER, Gustabo H Consulting Unavailable Jennifer, Marycarmen Primary Care Unavailable Maren Olivas Referring Unavailable Maren Olivas Attending Unavailable Jennifer, Marycarmen Primary Care Unavailable Jennifer Marycarmen Attending Unavailable Jennifer, Marycarmen Primary Care Unavailable Maren Olivas Attending Unavailable Jennifre, Marycarmen Referring Unavailable Jennifer, Marycarmen Primary Care Unavailable Abraham Ridley Admitting Unavailable Abraham Ridley Consulting Unavailable Jose Hay Referring Unavailable Nickie Danielson Attending Unavailable Elvis Olvera Consulting Unavailable AdeSangeeta dupree Consulting Unavailable Hindjames Faye Consulting Unavailable Sam Petrona Consulting Unavailable Cain Candice Consulting Unavailable SissyDiogenes howard Consulting Unavailable Carrington, Cari Consulting Unavailable Sherman Rouse Consulting Unavailable Seymour John Consulting Unavailable Jamar Tapia Consulting Unavailable Chrissy Mccallum Consulting Unavailable Fletcher Good Consulting Unavailable Sarah Beth Candelaria Consulting Unavailable Jody Kwon Consulting Unavailable Fermin José Consulting UnavailMin Woodruff Consulting Unavailable Nick Bernard Consulting Unavailable Zay Alanis Consulting Unavailable Kristina Danielson Consulting Unavailable Ernestina Milan Consulting Unavailable Jennifer, Marycarmen Primary Care Unavailable Timothy Sexton Consulting Unavailable Alka Leo Admitting Unavailable Eladio Melendez Attending Unavailable Attila, Tyler Consulting Unavailable Karrie Trinidad Consulting Unavailable Opal Wright Consulting Unavailable Lois Corea Consulting Unavailable Alka Leo Consulting Unavailable Alex Sanon Consulting Unavailable Jennifer, Marycarmen Primary Care Unavailable Jennifer, Marycarmen Attending Unavailable Jennifer, Marycarmen Primary Care Unavailable Justina PEREA, Marni Attending Unavailable Jennifer, Marycarmen Referring Unavailable Jennifer, Marycarmen Primary Care Unavailable Oleghe OLS, Efewongbe Referring Unavailabl e Oleghe OLS, Efewongbe Attending Unavailabl e Jennifer, Marycarmen Primary Care Unavailable Horn HOSPICE SOCIAL WORKER, Marni Attending Unavailable Oleghe OLS, Efewongbe Attending Unavailabl e Jennifer, Marycarmen Primary Care Unavailable Jennifer, Marycarmen Primary Care Unavailable Horn HOSPICE SOCIAL WORKER, Marni Attending Unavailable Horn HOSPICE SOCIAL WORKER, Marni Referring Unavailable Jennifer, Marycarmen Primary Care Unavailable Gayle, Sullivan Referring Unavailable Gayle, Marcin Attending Unavailable Jennifer, Marycarmen Primary Care Unavailable Horn HOSPICE SOCIAL WORKER, Marni Referring Unavailable Horn HOSPICE SOCIAL WORKER, Marni Attending Unavailable Jennifer, Marycarmen Primary Care Unavailable Maren Olivas Attending Unavailable Maren Olivas Referring Unavailable Jennifer, Marycarmen Primary Care Unavailable Jennifer Marycarmen Attending Unavailable Jennifer, Marycarmen Referring Unavailable Jennifer, Marycarmen Primary Care Unavailable Jennifer, Marycarmen Referring Unavailable Jose ArmandoJose Attending Unavailable Jennifer, Marycarmen Primary Care Unavailable Olemie OLS, Efewongbe Attending Unavailabl e Jennifer, Marycarmen Primary Care Unavailable Jennifer, Marycarmen Referring Unavailable Roof HOSPICE SOCIAL WORKER, Gustabo Gao Attending Unavailable Jennifer, Marycarmen Primary Care Unavailable Jennifer, Marycarmen Referring Unavailable Roof HOSPICE SOCIAL WORKER, Gustabo Gao Attending Unavailable Jennifer, Marycarmen Primary Care Unavailable Jennifer, Marycarmen Referring Unavailable Jsoe Armando, Jose Attending Unavailable Jennifer, Marycarmen Primary Care Unavailable Jennifer, Marycarmen Referring Unavailable Roof HOSPICE SOCIAL WORKER, Gustabo Gao Attending Unavailable Jennifer, Marycarmen Primary Care Unavailable Opal Wright Attending Unavailable Jennifer, Marycarmen Referring Unavailable Gayle, Marcin Attending Unavailable Jennifer, Marycarmen Primary Care Unavailable Gayle, Sullivan Referring Unavailable Jennifer, Marycarmen Primary Care Unavailable Horn HOSPICE SOCIAL WORKER, Marni Referring Unavailable Zen East Attending Unavailable Jennifer, Marycarmen Primary Care Unavailable Roof HOSPICE SOCIAL WORKER, Gustabo H Referring Unavailable Lance Rodriguez Attending Unavailable Abraham Ridley Attending Unavailable Alex Sanon Attending Unavailable Ramonita Herron Attending Unavailable Lance Rodriguez Attending Unavailable Jennifer, Marycarmen Primary Care Unavailable Horn HOSPICE SOCIAL WORKER, Marni Referring Unavailable Horn HOSPICE SOCIAL WORKER, Marni Consulting Unavailable Zen East Attending Unavailable Jennifer, Marycarmen Primary Care Unavailable Jose ArmandoJose Attending Unavailable Roof HOSPICE SOCIAL WORKER, Gustabo H Referring Unavailable Roof HOSPICE SOCIAL WORKER, Gustabo H Consulting Unavailable Ramonita Herron Attending Unavailable Jennifer, Marycarmen Primary Care Unavailable Jennifer, Marycarmen Attending Unavailable Jennifer, Marycarmen Primary Care Unavailable Isael Bernabe Attending Unavailable Medications Current Medications Medication Drug [...] oral tablet (20 sources) Opioid Agonist Start: 12-25-2024 Start: 04-17-2024 End: 12-06-2024 Start: 04-17-2024 Hydrocodone-Ac etaminophen 5-325 mg tablet Active 1 {tbl} PO TWICE A DAY as needed 0 April 17, 2024 1:00am aspirin 81 mg delayed releas e oral tablet (20 sources) Platelet Aggregation Inhibitor, Nonsteroidal Anti-inflammatory Drug Start: 01-21-2017 cetirizine hydrochloride 10 mg oral tablet (20 sources) Histamine-1 Receptor Antagonist Start: 09-16-2021 End: 12-12-2024 cholecalciferol 0.025 mg ora l tablet (20 [...] daily. 30 capsule 11 12/17/2016 12/17/2017 Active empagliflozin 10 mg oral [...] 10:49am DEPRESSION take 1 capsule by mo ut twice daily FLUoxetine (PROZAC) 40 MG capsule Take 40 mg by mouth 2 (two) times a day . 0 Active furosemide 40 mg oral tablet (20 sources) Loop Diuretic Start: 12-06-2024 End: 12-21-2024 Start: 11-27-2024 End: 12-06-2024 Start: 09-08-2018 End: [...] mouth daily. 90 tablet 3 05/07/2016 Active levothyroxine sodium 0.025 m g oral tablet (1 source) l-Thyroxine Start: 12-24-2024 24 hr metoprolol succinate 2 5 mg [...] 2018 11:10am sleep Start: 08-26-2018 End: 09-21-2018 ondansetron 4 mg disintegrat ing oral tablet (20 sources) Serotonin-3 Receptor Antagonist Start: 12-24-2024 Start: 09-03-2017 End: 09-07-2017 microencapsulated potassium chloride 10 meq extended release oral tablet (20 sources) Start: 12-17-2024 Start: 04-12-2018 End: 12-20-2024 Start: 04-12-2018 End: 06-14-2024 Start: 04-12-2018 End: [...] promethazine hydrochloride 1 2.5 mg oral tablet (3 sources) Phenothiazine Start: 12-17-2024 spironolactone 25 mg [...] Start: 08-30-2017 End: 08-30-2017 (20 sources) Start: 12-24-2024 Start: 12-17-2024 Start: 12-02-2024 Start: 04-27-2024 End: 06-14-2024 Start: 03-20-2024 Start: 09-21-2022 End: 10-12-2023 Start: 08-01-2021 End: 08-19-2022 Start: 06-04-2019 End: 06-04-2019 Start: 06-01-2019 End: 06-04-2019 Completed/Discontinued Medications Medication Drug Class(es) Dates Sig (Normalized) Sig (Original) [id number] 200 actuat albuterol 0.09 mg/actuat metered dose [...] mouth daily. 90 tablet 3 05/07/2016 Active colchicine 0.6 mg oral capsu le (3 sources) Start: 12-17-2024 End: 12-26-2024 doxycycline monohydrate 100 mg oral capsule (20 [...] WITH MEALS 0 September 21, 2022 12:00am pantoprazole 40 mg delayed r elease oral tablet (20 sources) Proton Pump Inhibitor [...] tablet 3 08/07/2016 Active perflutren lipid microspheres (DEFINMedicalodges) 0.143 mg/mL solution 0-10 mL of mixture [...] injector Discontinued 0.25 mg SC EVERY WEEK [id number] April 17, 2024 1:00am May 14, 2024 1:00am May 15, 2024 1:10am for 4 weeks Start: 04-17-2024 End: 05-15-2024 Semaglutide (Ozempic) 0.25 m g or 0.5 mg (2 mg/3 mL) pen injector Discontinued 0.25 mg SC EVERY WEEK [id number] 30April 17, 2024 1:00am May 14, 2024 1:00am May 15, 2024 1:10am for 4 weeks 24 hr venlafaxine 150 mg extended release oral capsule (20 sources) Serotonin and Norepinephrine Reuptake Inhibitor Start: 01-21-2017 End: 08-30-2017 Start: 03-26-2016 End: 09-21-2018 Problems Active Problems Problem Classification Problem Date Documented Da te Episodic/Chronic Acute and unspecified renal failure (20 sources) Inuhm-ki-[id number] renal failure; Translations: [Acute kidney failure, unspecified] Onset: 5 12-01-2024 Episodic Acute myocardial infarction (20 sources) Myocardial infarction; Translations: [ST elevation (STEMI) myocardial infarction of unspecified site] Onset: 5 11-30-2024 Chronic Asthma (20 sources) Asthma; Translations: [Unspecified asthma, uncomplicated] 10-31-2024 Chronic Cardiac dysrhythmias (18 sources) Paroxysmal ventricular tachycardia; 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] 12-05-2024 Chronic Cardiac dysrhythmias (20 sources) Palpitations; Translations: [Palpitations] Onset: Episodic Chronic kidney disease (20 sources) Chronic kidney disease stage 3; Translations: [Stage 3 chronic kidney disease] Onset: 5 12-09-2020 Chronic Chronic kidney disease (17 sources) Chronic kidney disease; Translations: [Stage 4 chronic kidney disease] Onset: 5 Chronic obstructive pulmonary disease and bronchiectasis (20 sources) Chronic obstructive lung disease; Translations: [Chronic obstructive pulmonary disease, unspecified] 12-09-2020 Chronic Comment on above: FEV1 is 76% Conditions associated with dizziness or vertigo (20 sources) Dizziness; Translations: [Dizziness and giddiness] Episodic Congestive heart failure; nonhypertensive (20 sources) Congestive heart failure; Translations: [Heart failure, unspecified] Onset: 5 Chronic Coronary atherosclerosis and other heart disease (20 sources) Coronary arteriosclerosis in [place] artery; Translations: [Preinfarction syndrome] Onset: 5 10-15-2016 Chronic Comment on above: patient has [...] coronary angioplasty; Translations: [Coronary angioplasty status] Onset: 5 01-25-2015 Episodic Comment on above: Conclusion: per [...] multiple wires and attempts. Procedure aborted. 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-Lu and Stent-Mid RCA x 2 Multi Link Mini Vision Rx Stent 4.0 x 28 mm 01/21/2006 Deficiency and other anemia (1 source) Anemia, unspecified; Translations: [Anemia, unspecified] Onset: Episodic Diabetes mellitus with complications (9 sources) Diabetes mellitus with complications Diabetes mellitus without complication (20 sources) Diabetes mellitus; Translations: [Type 2 diabetes mellitus without complications] Onset: 5 01-05-2015 Chronic Diseases of white blood cells (20 sources) Leukocytosis; Translations: [Elevated white blood cell count, unspecified] Onset: 5 12-01-2024 Chronic Disorders of lipid metabolism (20 sources) Hyperlipidemia; Translations: [Hyperlipidemia, unspecified] Onset: 5 06-17-2015 Chronic Diverticulosis and diverticulitis (20 sources) Diverticulitis; Translations: [Diverticulitis of intestine, part unspecified, without perforation or abscess without bleeding] Onset: 5 05-27-2021 Chronic E Codes: Fall (16 sources) Fall; Translations: [Unspecified fall, initial encounter] 11-26-2024 Episodic Essential hypertension (20 sources) Hypertensive disorder; Translations: [Essential (primary) hypertension] Onset: 4 06-17-2015 Chronic Fluid and electrolyte disorders (20 sources) Lactic acidosis; Translations: [Acidosis] Onset: 5 11-26-2020 Episodic Gastrointestinal hemorrhage (8 sources) Gastrointestinal hemorrhage; Translations: [Gastrointestinal hemorrhage, unspecified] Onset: 5 12-24-2024 Episodic Immunizations and screening for infectious disease (20 sources) Contact with or exposure to other viral diseases; Translations: [Exposure to COVID-19 virus] 01-26-2021 Episodic Malaise and fatigue (20 sources) Left hemiparesis; Translations: [Weakness] Onset: 7 11-29-2016 Episodic Melanomas of skin (20 sources) H/O Malignant melanoma; Translations: [Personal history of malignant melanoma of skin] 12-13-2018 Episodic Miscellaneous mental health disorders (20 sources) Dissociative disorder; 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] Onset: 6 11-29-2016 Chronic Mood disorders (10 sources) Depressive disorder; Translations: [Major depressive disorder, single episode, unspecified] Onset: 6 03-18-2016 Chronic Nausea and vomiting (1 source) Nausea; Translations: [Nausea] 12-20-2024 Episodic Nonspecific chest pain (20 sources) Chest pain; Translations: [Chest pain at rest] Onset: 5 11-29-2016 Episodic Open wounds of head; neck; [...] conditions due to external causes (16 sources) Abrasion; Translations: [Other injury of unspecified body region, initial encounter] 11-26-2024 Episodic Other lower respiratory disease (20 sources) Dyspnea; Translations: [Shortness of breath] Episodic Other lower respiratory disease (20 sources) Dyspnea on exertion; Translations: [Dyspnea, unspecified] Episodic Other lower respiratory disease (20 sources) Cough; Translations: [Cough] 01-26-2021 Episodic Other lower respiratory disease (4 sources) Dyspnea, unspecified; Translations: [Other respiratory abnormalities] Onset: 5 Episodic Other lower respiratory disease (20 sources) Wheezing; Translations: [Wheezing] 09-20-2024 Episodic Other lower respiratory disease (2 sources) Shortness of breath; Translations: [Shortness of breath] Onset: 5 Episodic Other lower respiratory disease (1 source) Wheezing; Translations: [Wheezing] Onset: 5 Episodic Other non-traumatic joint disorders (1 source) Pain in left shoulder; Translations: [Pain in left shoulder] Onset: 5 Episodic Other nutritional; endocrine; and metabolic disorders [...] sources) Obesity, unspecified; Translations: [Obesity, unspecified] Onset: 4 Chronic Other screening for suspected conditions (not mental disorders or infectious disease) (20 sources) Pulmonary function studies abnormal; Translations: [Abnormal results of pulmonary function studies] Episodic Otitis media and related conditions (20 sources) Perforation of tympanic membrane due to otitis media; Translations: [Otitis media, unspecified, unspecified ear] 06-18-2021 Episodic Paralysis (1 source) Left hemiparesis; Translations: [Left-sided weakness] Onset: 7 11-29-2016 Chronic Kenyatta-; endo-; and myocarditis; cardiomyopathy (except that caused by tuberculosis or sexually transmitted disease) (6 sources) Pericardial effusion; Translations: [Pericardial effusion] 12-15-2024 Episodic Peripheral and visceral atherosclerosis (10 sources) Peripheral vascular disease; Translations: [Peripheral vascular disease, unspecified] 06-18-2015 Chronic Pulmonary heart disease (10 sources) Pulmonary hypertension; Translations: [Pulmonary hypertension, unspecified] Onset: 6 03-18-2016 Chronic Rehabilitation care; fitting of prostheses; and adjustment of devices (1 source) Encounter for fitting and adjustment of other specified devices; Translations: [Encounter for fitting and adjustment of other specified devices] Onset: 5 Chronic Residual codes; unclassified (20 sources) Obstructive sleep apnea syndrome; Translations: [Obstructive sleep apnea (adult) (pediatric)] Onset: 5 01-25-2015 Chronic Comment on above: AHI 64.7 Residual codes; unclassified (7 sources) Obstructive sleep apnea (adult) (pediatric); Translations: [Obstructive sleep apnea (adult)(pediatric)] Onset: 5 Chronic Residual codes; unclassified (20 sources) Central sleep apnea syndrome; 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] 10-31-2024 Chronic Residual codes; unclassified (2 sources) Primary central sleep apnea; 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] Onset: 5 Chronic Residual codes; unclassified (20 sources) Bilateral lower limb edema; Translations: [Localized edema] 12-15-2022 Episodic Residual codes; unclassified (4 sources) Localized edema; Translations: [Edema] Onset: 5 12-15-2022 Episodic Substance-related disorders (1 source) Opioid dependence, uncomplicated; Translations: [Opioid dependence, uncomplicated] Onset: 5 Chronic Superficial injury; contusion (20 sources) Contusion of left knee; Translations: [Contusion of left knee, initial encounter] 11-26-2024 Episodic Syncope (20 sources) Syncope; Translations: [Syncope and collapse] 11-26-2020 Episodic Transient cerebral ischemia (20 sources) Cerebral ischemia; Translations: [Transient cerebral ischemic attack, unspecified] 01-31-2019 Chronic Unclassified (9 sources) Acute ST elevation myocardial infarction (STEMI) of inferior wall Unclassified (9 sources) Coronary vasospasm Unclassified (9 sources) History of inferior wall myocardial infarction Unclassified (9 sources) Nonsustained monomorphic ventricular tachycardia Unclassified (9 sources) Presence of stent in coronary artery Unclassified (1 source) Other pericardial effusion (noninflammatory); Translations: [Other pericardial effusion (noninflammatory)] Onset: 5 Unclassified (1 source) Ventricular tachycardia, unspecified; Translations: [Ventricular tachycardia, unspecified] Onset: 5 Unclassified (1 source) Other ventricular tachycardia; Translations: [Other ventricular tachycardia] Onset: 5 Viral infection (20 sources) Disease caused by [...] Range Facility Absolute lymphocyte countOrd ered By: Eladio Melendez on 12-26-2024 Lymphocytes Auto (Unsp spec) [#/Vol] 0.80 10*3/uL Low 0.83-4.51 [facility] Anion gap in Serum or Plasma Ordered By: Eladio Melendez on 12-26-2024 Anion gap [Moles/Vol] 9 mmol/L 5-[address] [facility] Automated lymphocyte count a s percentage of total leukocytesOrdered By: Eladio Melendez on 12-26-2024 Lymphocytes/100 WBC Auto (Unsp spec) 12.6 % Low 19-41 [facility] BUN/creatinine ratioOrdered By: Eladio Melendez on 12-26-2024 Urea nitrogen/Creatinine [Mass ratio] 6.2 mg/mg Low 10-20 [facility] Basic Metabolic Profile (BMP )on 12-26-2024 BUN/CRE 6.2 RATIO Low 10-20 [facility] Comment on above: Performed By: #### L 501.2300, L500.2500, L501.5200, L100.0100 ####[facility] [id number] [place] [place], [address] Calcium [Mass/Vol] 8.0 mg/dL Normal 7.6-11.0 [facility] Comment on above: Performed By: #### L 501.2300, L500.2500, L501.5200, L100.0100 ####[facility] [id number] [place], [address] Chloride [Moles/Vol] 109 mmol/L High 98-108 [facility] Comment on above: Performed By: #### L 501.2300, L500.2500, L501.5200, L100.0100 ####[facility] [id number] [place], [address] CO2 [Moles/Vol] 22.2 mmol/L Normal 21.0-32.0 [facility] Comment on above: Performed By: #### L 501.2300, L500.2500, L501.5200, L100.0100 ####[facility] [id number] [place], [address] Creatinine [Mass/Vol] 1.33 mg/dL High 0.70-1.[address] [facility] Comment on above: Performed By: #### L 501.2300, L500.2500, L501.5200, L100.0100 ####[facility] [id number] [place] [place], [address] ECRCL 52.07 ml/min Normal 50-250 [facility] Comment on above: Performed By: #### L 501.2300, L500.2500, L501.5200, L100.0100 ####[facility] [id number] [place], [address] GAP 9 Normal 5-15 [facility] Comment on above: Performed By: #### L 501.2300, L500.2500, L501.5200, L100.0100 ####[facility] [address] [place], [address] GFR/1.73 sq M.predicted among non-blacks MDRD (S/P/Bld) [Vol rate/Area] 54 mL/min/{1.73_m2} Low >60 [facility] Comment on above: Result Comment: mL/m in/1.73m2 CKD-EPI Creatinine Equation (2020) Performed By: #### L 501.2300, L500.2500, L501.5200, L100.0100 ####[facility] [id number] [place], [address] Glucose [Mass/Vol] 124 mg/dL High 70-99 [facility] Comment on above: Performed By: #### L 501.2300, L500.2500, L501.5200, L100.0100 ####[facility] [id number] [place], [place], [address] Potassium [Moles/Vol] 3.7 mmol/L Normal 3.3-5.[address] [facility] Comment on above: Performed By: #### L 501.2300, L500.2500, L501.5200, L100.0100 ####[facility] [address] [place], [address] Sodium [Moles/Vol] 140 mmol/L Normal 133-145 [facility] Comment on above: Performed By: #### L 501.2300, L500.2500, L501.5200, L100.0100 ####[facility] [address] [place], [address] Urea nitrogen [Mass/Vol] 8 mg/dL Normal 4-19 [facility] Comment on above: Performed By: #### L 501.2300, L500.2500, L501.5200, L100.0100 ####[facility] [address] [place], [address] Basophil percentageOrdered B y: Eladio Melendez on 12-26-2024 Basophils/100 WBC (Bld) 0.3 % 0-1 [facility] Bedside Glucoseon 12-26-2024 FINGERSTICK GLU 131 mg/dL High 74-106 [facility] Comment on above: Result Comment: WILDA GEMENT OF PATIENT CARE PER NURSING PROTOCOL Performed By: #### L 501.080 ####[facility] [address] [place], [address] FINGERSTICK GLU 132 mg/dL High 74-106 [facility] Comment on above: Result Comment: WILDA GEMENT OF PATIENT CARE PER NURSING PROTOCOL Performed By: #### L 501.080 ####[facility] [address] [place], [address] CBC W/Diff, Automatedon 12-02 PLT EST SLT DEC Normal ADEQ [facility] Comment on above: Performed By: #### L 501.2300, L500.2500, L501.5200, L100.0100 ####[facility] [address] [place], [address] Carbon dioxide, total [Moles /volume] in Central venous bloodOrdered By: Eladio Melendez on 12-26-2024 CO2 [Moles/Vol] 22.2 mmol/L 21.0-32.0 [facility] Chloride assayOrdered By: Magalie Melendez on 12-26-2024 Chloride [Moles/Vol] 109 mmol/L High 98-108 [facility] Eosinophil percentageOrdered By: Eladio Melendez on 12-26-2024 Eosinophils/100 WBC (Bld) 0.9 % 0-5 [facility] Erythrocyte distribution wid th ratioOrdered By: Eladio Melendez on 12-26-2024 Erythrocyte distribution width (RBC) [Ratio] 14.1 % 11.6-14.6 [facility] Erythrocyte distribution wid th standard deviationOrdered By: Eladio Melendez on 12-26-2024 Erythrocyte distribution width (RBC) [Ratio] 46.0 fl High 35.1-43.9 [facility] Glomerular filtration rate ( GFR) estimation/1.73 sq m using serum, plasma, or whole bOrdered By: Eladio Melendez on 12-26-2024 GFR/1.73 sq M.predicted among non-blacks MDRD (S/P/Bld) [Vol rate/Area] 54 mL/min/{1.73_m2} Low >60 [facility] deOrdered By: Eladio Melendez on 12-26-2024 Glucose [Mass/Vol] 131 mg/dL High 74-106 [facility] Hematocrit Auto (Bld) [Volum e fraction]Ordered By: Eladio Melendez on 12-26-2024 Hematocrit (Bld) [Volume fraction] 32.3 % Low 40-54 [facility] Hemoglobin measurementOrdere d By: Eladio Melendez on 12-26-2024 Hemoglobin (Bld) [Mass/Vol] 10.3 g/dL Low 13.0-16.5 [facility] Immature granulocytes/100 WB C Auto (Bld)Ordered By: Eladio Melendez on 12-26-2024 Immature granulocytes/100 WBC (Bld) 0.500 % 0.0-0.9 [facility] MCV (mean corpuscular volume ) determinationOrdered By: Eladio Melendez on 12-26-2024 MCV (RBC) [Entitic vol] 90.0 fL 80-94 [facility] Magnesiumon 12-26-2024 Magnesium [Mass/Vol] 1.7 mg/dL Normal 1.5-2.2 [facility] Comment on above: Performed By: #### L 501.2300, L500.2500, L501.5200, L100.0100 ####[facility] [address] [place], [place], [address] Magnesium measurement (mass/ volume)Ordered By: Eladio Melendez on 12-26-2024 Magnesium (Unsp spec) [Mass/Vol] 1.7 mg/dL 1.5-2.2 [facility] Mean corpuscular hemoglobin (MCH) determinationOrdered By: Eladio Melendez on 12-26-2024 MCH (RBC) [Entitic mass] 28.7 pg 27.0-32.0 [facility] Monocyte percentageOrdered B y: Eladio Melendez on 12-26-2024 Monocytes/100 WBC (Bld) 9.5 % 0-10 [facility] Neutrophil percentageOrdered By: Eladio Melendez on 12-26-2024 Neutrophils/100 WBC (Bld) 76.2 % High 47-70 [facility] Phosphoruson 12-26-2024 Phosphate [Mass/Vol] 2.2 mg/dL Low 2.7-4.5 [facility] Comment on above: Performed By: #### L 501.2300, L500.2500, L501.5200, L100.0100 ####[facility] [address] [place], [address] Platelet countOrdered By: Magalie Melendez on 12-26-2024 Platelets (Bld) [#/Vol] 92 10*3/uL Low 150-450 [facility] Platelet estimateOrdered By: Eladio Melendez on 12-26-2024 Platelets LM Ql (Bld) SLT DEC ADEQ [facility] Potassium measurement (mass/ volume)Ordered By: Eladio Melendez on 12-26-2024 Potassium (Unsp spec) [Mass/Vol] 3.7 mmol/L 3.3-5.1 [facility] RBC Auto (Bld) [#/Vol]Ordere d By: Eladio Melendez on 12-26-2024 RBC (Bld) [#/Vol] 3.59 10*6/uL Low 4.6-6.2 [facility] Serum creatinine measurement (mass/volume)Ordered By: Eladio Melendez on 12-26-2024 Creatinine [Mass/Vol] 1.33 mg/dL High 0.70-1.[address] [facility] Serum glucose measurement (m ass/volume)Ordered By: Eladio Melendez on 12-26-2024 Glucose [Mass/Vol] 124 mg/dL High 70-99 [facility] Serum or plasma calcium francine urement (mass/volume)Ordered By: Eladio Melendez on 12-26-2024 Calcium [Mass/Vol] 8.0 mg/dL 7.6-11.0 [facility] Serum or plasma urea nitroge n measurement (mass/volume)Ordered By: Eladio Melendez on 12-26-2024 Urea nitrogen [Mass/Vol] 8 mg/dL 4-19 [facility] Sodium levelOrdered By: Fei Melendez on 12-26-2024 Sodium [Moles/Vol] 140 mmol/L 133-145 [facility] White blood cell (WBC) count Ordered By: Eladio Melendez on 12-26-2024 WBC (Bld) [#/Vol] 6.3 10*3/uL 4.4-11.0 [facility] 12 Lead EKGon 12-25-20[address] [facility] Basic Metabolic Profile (BMP )on 12-25-2024 BUN/CRE 6.6 RATIO Low 10-20 [facility] Comment on above: Performed By: #### L 100.0100, L500.2500, L501.2300, L501.5200 ####[facility] [address] [place], [address] Calcium [Mass/Vol] 8.3 mg/dL Normal 7.6-11.0 [facility] Comment on above: Performed By: #### L 100.0100, L500.2500, L501.2300, L501.5200 ####[facility] [address] [place], [address] Chloride [Moles/Vol] 106 mmol/L Normal 98-108 [facility] Comment on above: Performed By: #### L 100.0100, L500.2500, L501.2300, L501.5200 ####[facility] [address] [place], [address] CO2 [Moles/Vol] 19.8 mmol/L Low 21.0-32.0 [facility] Comment on above: Performed By: #### L 100.0100, L500.2500, L501.2300, L501.5200 ####[facility] [address] [place], [address] Creatinine [Mass/Vol] 1.42 mg/dL High 0.70-1.[address] [facility] Comment on above: Performed By: #### L 100.0100, L500.2500, L501.2300, L501.5200 ####[facility] [address] [place], [address] ECRCL 49.25 ml/min Low 50-250 [facility] Comment on above: Performed By: #### L 100.0100, L500.2500, L501.2300, L501.5200 ####[facility] [address] [place], [address] GAP 13 Normal 5-15 [facility] Comment on above: Performed By: #### L 100.0100, L500.2500, L501.2300, L501.5200 ####[facility] [address] [place], [address] GFR/1.73 sq M.predicted among non-blacks MDRD (S/P/Bld) [Vol rate/Area] 50 mL/min/{1.73_m2} Low >60 [facility] Comment on above: Result Comment: mL/m in/1.73m2 CKD-EPI Creatinine Equation (2020) Performed By: #### L 100.0100, L500.2500, L501.2300, L501.5200 ####[facility] [address] [place], [address] Glucose [Mass/Vol] 105 mg/dL High 70-99 [facility] Comment on above: Performed By: #### L 100.0100, L500.2500, L501.2300, L501.5200 ####[facility] [address] [place], [address] Potassium [Moles/Vol] 3.4 mmol/L Normal 3.3-5.[address] [facility] Comment on above: Performed By: #### L 100.0100, L500.2500, L501.2300, L501.5200 ####[facility] [address] [place], [address] Sodium [Moles/Vol] 139 mmol/L Normal 133-145 [facility] Comment on above: Performed By: #### L 100.0100, L500.2500, L501.2300, L501.5200 ####[facility] [address] [place], [address] Urea nitrogen [Mass/Vol] 9 mg/dL Normal 4-19 [facility] Comment on above: Performed By: #### L 100.0100, L500.2500, L501.2300, L501.5200 ####[facility] [address] [place], [address] Bedside Glucoseon 12-25-2024 FINGERSTICK GLU 140 mg/dL High 74-106 [facility] Comment on above: Result Comment: WILDA BARROSO OF PATIENT CARE PER NURSING PROTOCOL Performed By: #### L 501.080 ####[facility] [address] [place], [address] FINGERSTICK GLU 81 mg/dL Normal 74-106 [facility] Comment on above: Result Comment: WILDA GEMENT OF PATIENT CARE PER NURSING PROTOCOL Performed By: #### L 501.080 ####[facility] [address] [place], [address] FINGERSTICK GLU 115 mg/dL High 74-106 [facility] Comment on above: Result Comment: WILDA GEMENT OF PATIENT CARE PER NURSING PROTOCOL Performed By: #### L 501.080 ####[facility] [address] [place], [address] FINGERSTICK GLU 102 mg/dL Normal 74-106 [facility] Comment on above: Result Comment: WILDA GEMENT OF PATIENT CARE PER NURSING PROTOCOL Performed By: #### L 501.080 ####[facility] [address] [place], [address] CBC W/Diff, Automatedon 12-02 Absolute Lymph 1.00 X10 3/uL Normal 0.83-4.51 [facility] Comment on above: Performed By: #### L 100.0100, L500.2500, L501.2300, L501.5200 ####[facility] [address] [place], [address] Absolute Neut 5.3 X10 3/uL Normal 2.0-7.7 [facility] Comment on above: Performed By: #### L 100.0100, L500.2500, L501.2300, L501.5200 ####[facility] [address] [place], [address] Basophils/100 WBC (Bld) 0.3 % Normal 0-1 [facility] Comment on above: Performed By: #### L 100.0100, L500.2500, L501.2300, L501.5200 ####[facility] [address] [place], [address] Eosinophils/100 WBC (Bld) 1.1 % Normal 0-5 [facility] Comment on above: Performed By: #### L 100.0100, L500.2500, L501.2300, L501.5200 ####[facility] [address] [place], [address] Erythrocyte distribution width (RBC) [Ratio] 14.2 % Normal 11.6-14.6 [facility] Comment on above: Performed By: #### L 100.0100, L500.2500, L501.2300, L501.5200 ####[facility] [address] [place], [address] Hematocrit (Bld) [Volume fraction] 30.7 % Low 40-54 [facility] Comment on above: Performed By: #### L 100.0100, L500.2500, L501.2300, L501.5200 ####[facility] [address] [place], [address] Hemoglobin (Bld) [Mass/Vol] 10.2 g/dL Low 13.0-16.5 [facility] Comment on above: Performed By: #### L 100.0100, L500.2500, L501.2300, L501.5200 ####[facility] [address] [place], [address] IG% 0.300 Normal 0.0-0.9 [facility] Comment on above: Result Comment: IG% - Immature Granulocytes (promyelocytes, myelocytes andmetamyelocytes) > 1% indicates that a LEFT SHIFT is Present. Performed By: #### L 100.0100, L500.2500, L501.2300, L501.5200 ####[facility] [address] [place], [address] Lymphocytes/100 WBC (Bld) 14.2 % Low 19-41 [facility] Comment on above: Performed By: #### L 100.0100, L500.2500, L501.2300, L501.5200 ####[facility] [address] [place], [address] MCH (RBC) [Entitic mass] 29.0 pg Normal 27.0-32.0 [facility] Comment on above: Performed By: #### L 100.0100, L500.2500, L501.2300, L501.5200 ####[facility] [address] [place], [address] MCHC (RBC) [Mass/Vol] 33.2 g/dL Normal 32-[address] [facility] Comment on above: Performed By: #### L 100.0100, L500.2500, L501.2300, L501.5200 ####[facility] [address] [place], [address] MCV (RBC) [Entitic vol] 87.2 fL Normal 80-94 [facility] Comment on above: Performed By: #### L 100.0100, L500.2500, L501.2300, L501.5200 ####[facility] [address] [place], [address] Monocytes/100 WBC (Bld) 8.4 % Normal 0-10 [facility] Comment on above: Performed By: #### L 100.0100, L500.2500, L501.2300, L501.5200 ####[facility] [address] [place], [address] Neutrophils/100 WBC (Bld) 75.7 % High 47-70 [facility] Comment on above: Performed By: #### L 100.0100, L500.2500, L501.2300, L501.5200 ####[facility] [address] [place], [address] Nucleated RBC (Bld) [#/Vol] 0 10*3/uL Normal 0-5 [facility] Comment on above: Performed By: #### L 100.0100, L500.2500, L501.2300, L501.5200 ####[facility] [address] [place], [address] Platelet mean volume (Bld) [Entitic vol] 12.9 fL High 6.2-12.0 [facility] Comment on above: Performed By: #### L 100.0100, L500.2500, L501.2300, L501.5200 ####[facility] [address] [place], [address] Platelets (Bld) [#/Vol] 110 10*3/uL Low 150-450 [facility] Comment on above: Performed By: #### L 100.0100, L500.2500, L501.2300, L501.5200 ####[facility] [address] [place], [address] RBC (Bld) [#/Vol] 3.52 10*6/uL Low 4.6-6.2 [facility] Comment on above: Performed By: #### L 100.0100, L500.2500, L501.2300, L501.5200 ####[facility] [address] [place], [address] RDW SD 44.7 fl High 35.1-43.9 [facility] Comment on above: Performed By: #### L 100.0100, L500.2500, L501.2300, L501.5200 ####[facility] [address] [place], [address] WBC (Bld) [#/Vol] 7.0 10*3/uL Normal 4.4-11.0 [facility] Comment on above: Performed By: #### L 100.0100, L500.2500, L501.2300, L501.5200 ####[facility] [address] [place], [address] Colonoscopy Reporton 025 Colonoscopy Report Normal [facility] EGD Reporton 12-25-[address] [facility] MR/CON.PCM.GIon 12-25-2024 MR/CON.PCM.GI Normal [facility] MR/OP.PROVATon 12-25-2024 MR/OP.PROVAT Normal [facility] MR/OP.PROVAT Normal [facility] MR/POSTOP.ANEon 12-25-2024 MR/POSTOP.ANE Normal [facility] MR/[id number] 12-25-2024 MR/POSTOPAN2 Normal [facility] Magnesiumon 12-25-2024 Magnesium [Mass/Vol] 1.5 mg/dL Normal 1.5-2.2 [facility] Comment on above: Performed By: #### L 100.0100, L500.2500, L501.2300, L501.5200 ####[facility] [address] [place], [place], [id number] Phosphoruson 12-25-2024 Phosphate [Mass/Vol] 2.0 mg/dL Low 2.7-4.5 [facility] Comment on above: Performed By: #### L 100.0100, L500.2500, L501.2300, L501.5200 ####[facility] [address] [place], [address] Activated partial thrombopla stin time (aPTT) in platelet poor plasma by coagulation aOrdered By: Andrae Kennedy on 12-24-2024 aPTT Coag (PPP) [Time] 27.6 s 24.1-36.2 [facility] Basic Metabolic Profile (BMP )on 12-24-2024 BUN/CRE 9.9 RATIO Low 10-20 [facility] Comment on above: Performed By: #### L 503.6005, M100.7900, L500.2500, L300.4310, L100.0100, L300.3900 ####[facility] [address] [place], [place], [id number] Calcium [Mass/Vol] 8.4 mg/dL Normal 7.6-11.0 [facility] Comment on above: Performed By: #### L 503.6005, M100.7900, L500.2500, L300.4310, L100.0100, L300.3900 ####[facility] [address] [place], [address] Chloride [Moles/Vol] 106 mmol/L Normal 98-108 [facility] Comment on above: Performed By: #### L 503.6005, M100.7900, L500.2500, L300.4310, L100.0100, L300.3900 ####[facility] [address] [place], [address] CO2 [Moles/Vol] 18.1 mmol/L Low 21.0-32.0 [facility] Comment on above: Performed By: #### L 503.6005, M100.7900, L500.2500, L300.4310, L100.0100, L300.3900 ####[facility] [address] [place], [address] Creatinine [Mass/Vol] 1.67 mg/dL High 0.70-1.[address] [facility] Comment on above: Performed By: #### L 503.6005, M100.7900, L500.2500, L300.4310, L100.0100, L300.3900 ####[facility] [address] [place], [address] ECRCL 41.59 ml/min Low 50-250 [facility] Comment on above: Performed By: #### L 503.6005, M100.7900, L500.2500, L300.4310, L100.0100, L300.3900 ####[facility] [address] [place], [address] GAP 15 Normal 5-15 [facility] Comment on above: Performed By: #### L 503.6005, M100.7900, L500.2500, L300.4310, L100.0100, L300.3900 ####[facility] [address] [place], [address] GFR/1.73 sq M.predicted among non-blacks MDRD (S/P/Bld) [Vol rate/Area] 41 mL/min/{1.73_m2} Low >60 [facility] Comment on above: Result Comment: mL/m in/1.73m2 CKD-EPI Creatinine Equation (2020) Performed By: #### L 503.6005, M100.7900, L500.2500, L300.4310, L100.0100, L300.3900 ####[facility] [address] [place], [address] Glucose [Mass/Vol] 125 mg/dL High 70-99 [facility] Comment on above: Performed By: #### L 503.6005, M100.7900, L500.2500, L300.4310, L100.0100, L300.3900 ####[facility] [address] [place], [address] Potassium [Moles/Vol] 4.3 mmol/L Normal 3.3-5.[address] [facility] Comment on above: Performed By: #### L 503.6005, M100.7900, L500.2500, L300.4310, L100.0100, L300.3900 ####[facility] [address] [place], [address] Sodium [Moles/Vol] 139 mmol/L Normal 133-145 [facility] Comment on above: Performed By: #### L 503.6005, M100.7900, L500.2500, L300.4310, L100.0100, L300.3900 ####[facility] [address] [place], [address] Urea nitrogen [Mass/Vol] 17 mg/dL Normal 4-19 [facility] Comment on above: Performed By: #### L 503.6005, M100.7900, L500.2500, L300.4310, L100.0100, L300.3900 ####[facility] [address] [place], [address] Bedside Glucoseon 12-24-2024 FINGERSTICK GLU 107 mg/dL High 74-106 [facility] Comment on above: Result Comment: WILDA GEMENT OF PATIENT CARE PER NURSING PROTOCOL Performed By: #### L 501.080 ####[facility] [address] [place], [address] FINGERSTICK GLU 96 mg/dL Normal 74-106 [facility] Comment on above: Result Comment: WILDA GEMENT OF PATIENT CARE PER NURSING PROTOCOL Performed By: #### L 501.080 ####[facility] [address] [place], [address] FINGERSTICK GLU 152 mg/dL High 74-106 [facility] Comment on above: Result Comment: WILDA GEMENT OF PATIENT CARE PER NURSING PROTOCOL Performed By: #### L 501.080 ####[facility] [address] [place], [address] FINGERSTICK GLU 112 mg/dL High 74-106 [facility] Comment on above: Result Comment: WILDA GEMENT OF PATIENT CARE PER NURSING PROTOCOL Performed By: #### L 501.080 ####[facility] [address] [place], [address] Bilirubin, totalOrdered By: Alka Leo on 12-24-2024 Bilirubin [Mass/Vol] 0.53 mg/dL Normal 0.00-1.30 [facility] Comment on above: Performed By: #### L 500.4050 ####[facility] [address] [place], [address] CBC W/Diff, Automatedon 08-2 -2024 Absolute Lymph 1.09 X10 3/uL Normal 0.83-4.51 [facility] Comment on above: Performed By: #### L 503.6005, M100.7900, L500.2500, L300.4310, L100.0100, L300.3900 ####[facility] [address] [place], [address] Absolute Neut 6.9 X10 3/uL Normal 2.0-7.7 [facility] Comment on above: Performed By: #### L 503.6005, M100.7900, L500.2500, L300.4310, L100.0100, L300.3900 ####[facility] [address] [place], [address](061 IG% 0.300 Normal 0.0-0.9 [facility] Comment on above: Result Comment: IG% - Immature Granulocytes (promyelocytes, myelocytes andmetamyelocytes) > 1% indicates that a LEFT SHIFT is Present. Performed By: #### L 503.6005, M100.7900, L500.2500, L300.4310, L100.0100, L300.3900 ####[facility] [address] [place], [address] Nucleated RBC (Bld) [#/Vol] 0 10*3/uL Normal 0-5 [facility] Comment on above: Performed By: #### L 503.6005, M100.7900, L500.2500, L300.4310, L100.0100, L300.3900 ####[facility] [address] [place], [address] Basophils/100 WBC (Bld) 0.2 % Normal 0-1 [facility] Comment on above: Performed By: #### L 503.6005, M100.7900, L500.2500, L300.4310, L100.0100, L300.3900 ####[facility] [address] [place], [address] Eosinophils/100 WBC (Bld) 0.8 % Normal 0-5 [facility] Comment on above: Performed By: #### L 503.6005, M100.7900, L500.2500, L300.4310, L100.0100, L300.3900 ####[facility] [address] [place], [address] Erythrocyte distribution width (RBC) [Ratio] 14.2 % Normal 11.6-14.6 [facility] Comment on above: Performed By: #### L 503.6005, M100.7900, L500.2500, L300.4310, L100.0100, L300.3900 ####[facility] [address] [place], [address] Hematocrit (Bld) [Volume fraction] 35.7 % Low 40-54 [facility] Comment on above: Performed By: #### L 503.6005, M100.7900, L500.2500, L300.4310, L100.0100, L300.3900 ####[facility] [address] [place], [address] Hemoglobin (Bld) [Mass/Vol] 11.8 g/dL Low 13.0-16.5 [facility] Comment on above: Performed By: #### L 503.6005, M100.7900, L500.2500, L300.4310, L100.0100, L300.3900 ####[facility] [address] [place], [address] Lymphocytes/100 WBC (Bld) 12.2 % Low 19-41 [facility] Comment on above: Performed By: #### L 503.6005, M100.7900, L500.2500, L300.4310, L100.0100, L300.3900 ####[facility] [address] [place], [address] MCH (RBC) [Entitic mass] 29.6 pg Normal 27.0-32.0 [facility] Comment on above: Performed By: #### L 503.6005, M100.7900, L500.2500, L300.4310, L100.0100, L300.3900 ####[facility] [address] [place], [address] MCHC (RBC) [Mass/Vol] 33.1 g/dL Normal 32-[address] [facility] Comment on above: Performed By: #### L 503.6005, M100.7900, L500.2500, L300.4310, L100.0100, L300.3900 ####[facility] [address] [place], [address] MCV (RBC) [Entitic vol] 89.5 fL Normal 80-94 [facility] Comment on above: Performed By: #### L 503.6005, M100.7900, L500.2500, L300.4310, L100.0100, L300.3900 ####[facility] [address] [place], [address] Monocytes/100 WBC (Bld) 9.1 % Normal 0-10 [facility] Comment on above: Performed By: #### L 503.6005, M100.7900, L500.2500, L300.4310, L100.0100, L300.3900 ####[facility] [address] [place], [address] Neutrophils/100 WBC (Bld) 77.4 % High 47-70 [facility] Comment on above: Performed By: #### L 503.6005, M100.7900, L500.2500, L300.4310, L100.0100, L300.3900 ####[facility] [address] [place], [address] Platelet mean volume (Bld) [Entitic vol] 12.9 fL High 6.2-12.0 [facility] Comment on above: Performed By: #### L 503.6005, M100.7900, L500.2500, L300.4310, L100.0100, L300.3900 ####[facility] [address] [place], [address] Platelets (Bld) [#/Vol] 139 10*3/uL Low 150-450 [facility] Comment on above: Performed By: #### L 503.6005, M100.7900, L500.2500, L300.4310, L100.0100, L300.3900 ####[facility] [facility] [address] [place], [address] RBC (Bld) [#/Vol] 3.99 10*6/uL Low 4.6-6.2 [facility] Comment on above: Performed By: #### L 503.6005, M100.7900, L500.2500, L300.4310, L100.0100, L300.3900 ####[facility] [address] [place], [address] RDW SD 45.5 fl High 35.1-43.9 [facility] Comment on above: Performed By: #### L 503.6005, M100.7900, L500.2500, L300.4310, L100.0100, L300.3900 ####[facility] [address] [place], [address] WBC (Bld) [#/Vol] 8.9 10*3/uL Normal 4.4-11.0 [facility] Comment on above: Performed By: #### L 503.6005, M100.7900, L500.2500, L300.4310, L100.0100, L300.3900 ####[facility] [address] [place], [address] Comprehensive Metabolic Prof ilon 12-24-2024 ALK PHOS 136 U/L High 40-129 [facility] Comment on above: Performed By: #### L 500.4050 ####[facility] [address] [place], [address] AST [Catalytic activity/Vol] 24 U/L Normal <=37 [facility] Comment on above: Performed By: #### L 500.4050 ####[facility] [address] [place], [address] BUN/CRE 8.9 RATIO Low 10-20 [facility] Comment on above: Performed By: #### L 500.4050 ####[facility] [address] [place], [address] Calcium [Mass/Vol] 8.5 mg/dL Normal 7.6-11.0 [facility] Comment on above: Performed By: #### L 500.4050 ####[facility] [address] [place], [address] Chloride [Moles/Vol] 106 mmol/L Normal 98-108 [facility] Comment on above: Performed By: #### L 500.4050 ####[facility] [address] [place], [address] CO2 [Moles/Vol] 16.6 mmol/L Low 21.0-32.0 [facility] Comment on above: Performed By: #### L 500.4050 ####[facility] [address] [place], [address] Creatinine [Mass/Vol] 1.62 mg/dL High 0.70-1.[address] [facility] Comment on above: Performed By: #### L 500.4050 ####[facility] [address] [place], [address] ECRCL 42.41 ml/min Low 50-250 [facility] Comment on above: Performed By: #### L 500.4050 ####[facility] [address] [place], [address] GAP 16 High 5-15 [facility] Comment on above: Performed By: #### L 500.4050 ####[facility] [address] [place], [address] GFR/1.73 sq M.predicted among non-blacks MDRD (S/P/Bld) [Vol rate/Area] 43 mL/min/{1.73_m2} Low >60 [facility] Comment on above: Result Comment: mL/m in/1.73m2 CKD-EPI Creatinine Equation (2020) Performed By: #### L 500.4050 ####[facility] [address] [place], [address] Glucose [Mass/Vol] 127 mg/dL High 70-99 [facility] Comment on above: Performed By: #### L 500.4050 ####[facility] [address] [place], [address] Potassium [Moles/Vol] 4.0 mmol/L Normal 3.3-5.[address] [facility] Comment on above: Performed By: #### L 500.4050 ####[facility] [address] [place], [address] Sodium [Moles/Vol] 138 mmol/L Normal 133-145 [facility] Comment on above: Performed By: #### L 500.4050 ####[facility] [address] [place], [address] T PROT 6.6 g/dL Normal 5.9-8.4 [facility] Comment on above: Performed By: #### L 500.4050 ####[facility] [address] [place], [address] Urea nitrogen [Mass/Vol] 14 mg/dL Normal 4-19 [facility] Comment on above: Performed By: #### L 500.4050 ####[facility] [address] [place], [address] Emergency Department Summary on 12-24-2024 Emergency Department Summary Normal [facility] H AND P Exam - Hospitaliston 12-24-2024 H&P Exam - Hospitalist Normal [facility] HH, Hemoglobin AND Hematocri ton 12-24-2024 Hematocrit (Bld) [Volume fraction] 32.2 % Low 40-54 [facility] Comment on above: Performed By: #### L 100.0600 ####[facility] [address] [place], [address] Hemoglobin (Bld) [Mass/Vol] 10.6 g/dL Low 13.0-16.5 [facility] Comment on above: Performed By: #### L 100.0600 ####[facility] [address] [place], [address] Hematocrit (Bld) [Volume fraction] 32.2 % Low 40-54 [facility] Comment on above: Performed By: #### L 100.0600 ####[facility] [address] [place], [address] Hemoglobin (Bld) [Mass/Vol] 10.5 g/dL Low 13.0-16.5 [facility] Comment on above: Performed By: #### L 100.0600 ####[facility] [address] [place], [address] Hematocrit (Bld) [Volume fraction] 38.7 % Low 40-54 [facility] Comment on above: Performed By: #### L 100.0600 ####[facility] [address] [place], [address] Hemoglobin (Bld) [Mass/Vol] 12.3 g/dL Low 13.0-16.5 [facility] Comment on above: Performed By: #### L 100.0600 ####[facility] [address] [place], [address] Hematocrit (Bld) [Volume fraction] 34.5 % Low 40-54 [facility] Comment on above: Performed By: #### L 100.0600 ####[facility] [address] [place], [address] Hemoglobin (Bld) [Mass/Vol] 11.2 g/dL Low 13.0-16.5 [facility] Comment on above: Performed By: #### L 100.0600 ####[facility] [address] [place], [address] Lactic Acidon 12-24-2024 Lactate [Moles/Vol] 1.7 mmol/L Normal 0.0-2.0 [facility] Comment on above: Performed By: #### L 503.6005 ####[facility] [address] [place], [address] Lactate [Moles/Vol] 2.1 mmol/L Invalid Interpretation Code 0.0-2.0 [facility] Comment on above: Order Comment: Y Result Comment: Crit ical Result(s) Called at: 0049 by:??NIKA RAMESH. Results read back by same. Performed By: #### L 503.6005, M100.7900, L500.2500, L300.4310, L100.0100, L300.3900 ####[facility] [address] [place], [address] Magnesiumon 12-24-2024 Magnesium [Mass/Vol] 1.7 mg/dL Normal 1.5-2.2 [facility] Comment on above: Order Comment: Comme nts: may add to ED labs Performed By: #### L 501.5200 ####[facility] [address] [place], [place], [id number] No Panel InformationOrdered By: Alka Leo on 12-24-2024 24 U/L <38 [facility] Partial Thromboplast Timeon 12-24-2024 aPTT Coag (Bld) [Time] 27.6 s Normal 24.1-36.2 [facility] Comment on above: Performed By: #### L 503.6005, M100.7900, L500.2500, L300.4310, L100.0100, L300.3900 ####[facility] [address] [place], [address] Prothrombin Time w/INRon INR Coag (PPP) [Relative time] 1.0 {INR} Normal [facility] Comment on above: Performed By: #### L 503.6005, M100.7900, L500.2500, L300.4310, L100.0100, L300.3900 ####[facility] [address] [place], [address] Prothrombin timeOrdered By: Andrae Kennedy on 12-24-2024 PT Coag (PPP) [Time] 13.5 s Normal 11.7-14.9 [facility] Comment on above: Performed By: #### L 503.6005, M100.7900, L500.2500, L300.4310, L100.0100, L300.3900 ####[facility] [address] [place], [place], [id number] Serum globulin measurementOr dered By: Alka Leo on 12-24-2024 Globulin (S) [Mass/Vol] 3.1 g/dL Normal 2.2-4.2 [facility] Comment on above: Performed By: #### L 500.4050 ####[facility] [address] [place], [address] Serum or plasma alanine guerrero otransferase (ALT) measurementOrdered By: Alka Ahmet on 12-24-2024 ALT [Catalytic activity/Vol] 26 U/L Normal <=46 [facility] Comment on above: Performed By: #### L 500.4050 ####[facility] [address] [place], [address] Serum or plasma albumin francine urement (mass/volume)Ordered By: Alka Leo on 12-24-2024 Albumin [Mass/Vol] 3.5 g/dL Normal 3.4-4.8 [facility] Comment on above: Performed By: #### L 500.4050 ####[facility] [address] [place], [place], [phone] Serum or plasma albumin/glob ulin mass ratioOrdered By: Alka Ahmet on 12-24-2024 Albumin/Globulin [Mass ratio] 1.1 {ratio} Normal 0.9-2.4 [facility] Comment on above: Performed By: #### L 500.4050 ####[facility] [address] [place], [address] Serum or plasma alkaline bell sphatase measurementOrdered By: Alka Leo on 12-24-2024 ALP [Catalytic activity/Vol] 136 U/L High 40-129 [facility] Stool Occult Blood iFOBon STOB Normal [facility] Comment on above: Performed By: #### L 503.6005, M100.7900, L500.2500, L300.4310, L100.0100, L300.3900 ####[facility] [address] [place], [address] Stool gastrointestinal hemog lobin detection by immunologic methodOrdered By: Andrae Kennedy on 12-24-2024 Lower GI hemoglobin IA Ql (Stl) Positive Abnormal [facility] Total proteinOrdered By: Sophy Leo on 12-24-2024 Protein [Mass/Vol] 6.6 g/dL 5.9-8.4 [facility] Absolute lymphocyte countOrd ered By: Boyd Rock on 12-21-2024 Lymphocytes Auto (Unsp spec) [#/Vol] 0.76 10*3/uL Low 0.83-4.51 [facility] Anion gap in Serum or Plasma Ordered By: Boyd Rock on 12-21-2024 Anion gap [Moles/Vol] 17 mmol/L High 5-[address] [facility] Automated lymphocyte count a s percentage of total leukocytesOrdered By: Boyd Rock on 12-21-2024 Lymphocytes/100 WBC Auto (Unsp spec) 8.7 % Low 19-41 [facility] BUN/creatinine ratioOrdered By: Boyd Rock on 12-21-2024 Urea nitrogen/Creatinine [Mass ratio] 20.6 mg/mg High 10-20 [facility] Basophil percentageOrdered B y: Boyd Rock on 12-21-2024 Basophils/100 WBC (Bld) 0.2 % 0-1 [facility] Carbon dioxide, total [Moles /volume] in Central venous bloodOrdered By: Boyd Rock on 12-21-2024 CO2 [Moles/Vol] 16.7 mmol/L Low 21.0-32.0 [facility] Chloride assayOrdered By: Susanna Rock on 12-21-2024 Chloride [Moles/Vol] 101 mmol/L 98-108 [facility] Eosinophil percentageOrdered By: Boyd Rock on 12-21-2024 Eosinophils/100 WBC (Bld) 0.2 % 0-5 [facility] Erythrocyte distribution wid th ratioOrdered By: Boyd Rock on 12-21-2024 Erythrocyte distribution width (RBC) [Ratio] 13.9 % 11.6-14.6 [facility] Erythrocyte distribution wid th standard deviationOrdered By: Boyd Rock on 12-21-2024 Erythrocyte distribution width (RBC) [Ratio] 44.6 fl High 35.1-43.9 [facility] Glomerular filtration rate ( GFR) estimation/1.73 sq m using serum, plasma, or whole bOrdered By: Boyd Rock on 12-21-2024 GFR/1.73 sq M.predicted among non-blacks MDRD (S/P/Bld) [Vol rate/Area] 26 mL/min/{1.73_m2} Low >60 [facility] Hematocrit Auto (Bld) [Volum e fraction]Ordered By: Boyd Rock on 12-21-2024 Hematocrit (Bld) [Volume fraction] 37.3 % Low 40-54 [facility] Hemoglobin measurementOrdere d By: Lupeabbeybrittni Rock on 12-21-2024 Hemoglobin (Bld) [Mass/Vol] 12.2 g/dL Low 13.0-16.5 [facility] Immature granulocytes/100 WB C Auto (Bld)Ordered By: Boyd Rock on 12-21-2024 Immature granulocytes/100 WBC (Bld) 0.600 % 0.0-0.9 [facility] MCV (mean corpuscular volume ) determinationOrdered By: Boyd Rock on 12-21-2024 MCV (RBC) [Entitic vol] 87.8 fL 80-94 [facility] Mean corpuscular hemoglobin (MCH) determinationOrdered By: garrymetabrittni Castañedamiveronica on 12-21-2024 MCH (RBC) [Entitic mass] 28.7 pg 27.0-32.0 [facility] Monocyte percentageOrdered B y: Susannagarryabbeybrittni Rock on 12-21-2024 Monocytes/100 WBC (Bld) 10.6 % High 0-10 [facility] Neutrophil percentageOrdered By: Boyd Rock on 12-21-2024 Neutrophils/100 WBC (Bld) 79.7 % High 47-70 [facility] Platelet countOrdered By: Susanna meenabrittni Castañedamiveronica on 12-21-2024 Platelets (Bld) [#/Vol] 145 10*3/uL Low 150-450 [facility] Potassium measurement (mass/ volume)Ordered By: Susannaandrés Rock on 12-21-2024 Potassium (Unsp spec) [Mass/Vol] 4.2 mmol/L 3.3-5.1 [facility] RBC Auto (Bld) [#/Vol]Ordere d By: Lupeabbeybrittni Castañedamiveronica on 12-21-2024 RBC (Bld) [#/Vol] 4.25 10*6/uL Low 4.6-6.2 [facility] Serum creatinine measurement (mass/volume)Ordered By: Susannagarryabbeybrittni Castañedamiveronica on 12-21-2024 Creatinine [Mass/Vol] 2.49 mg/dL High 0.70-1.[address] [facility] Serum glucose measurement (m ass/volume)Ordered By: Boyd Castañedamiveronica on 12-21-2024 Glucose [Mass/Vol] 134 mg/dL High 70-99 [facility] Serum or plasma calcium francine urement (mass/volume)Ordered By: Susannagarryabbeybrittni Castañedamiveronica on 12-21-2024 Calcium [Mass/Vol] 9.0 mg/dL 7.6-11.0 [facility] Serum or plasma urea nitroge n measurement (mass/volume)Ordered By: Boyd Castañedamiveronica on 12-21-2024 Urea nitrogen [Mass/Vol] 51 mg/dL High 4-19 [facility] Sodium levelOrdered By: Susannagarry parkinson Shweta on 12-21-2024 Sodium [Moles/Vol] 134 mmol/L 133-145 [facility] T4 freeOrdered By: Susannagarryabbeybrittni Castañedamiveronica on 12-21-2024 Free T4 [Mass/Vol] 1.20 ng/dL 0.76-1.46 [facility] TSH DL <= 0.005 mIU/L QnOrde red By: Boyd Castañedamiveronica on 12-21-2024 TSH Qn 5.250 uIU/mL High 0.300-4.[address] [facility] Vitamin B12 ser/plasOrdered By: Susannagarryabbeybrittni Castañedamiveronica on 12-21-2024 Cobalamin (Vitamin B12) [Mass/Vol] 2000 pg/mL High 180-914 [facility] White blood cell (WBC) count Ordered By: Susannaandrés Castañedamiveronica on 12-21-2024 WBC (Bld) [#/Vol] 8.7 10*3/uL 4.4-11.0 [facility] 12 Lead EKGon 12-20-[address] [facility] Absolute lymphocyte countOrd ered By: Jody Servin on 12-20-2024 Lymphocytes Auto (Unsp spec) [#/Vol] 1.39 10*3/uL 0.83-4.51 [facility] Absolute lymphocyte countOrd ered By: Boyd Rock on 12-20-2024 Lymphocytes Auto (Unsp spec) [#/Vol] 1.09 10*3/uL 0.83-4.51 [facility] Activated partial thrombopla stin time (aPTT) in platelet poor plasma by coagulation aOrdered By: Jody Servin on 12-20-2024 aPTT Coag (PPP) [Time] 27.6 s 24.1-36.2 [facility] Anion gap in Serum or Plasma Ordered By: Jody Servin on 12-20-2024 Anion gap [Moles/Vol] 19 mmol/L [facility] Anion gap in Serum or Plasma Ordered By: Boyd Rock on 12-20-2024 Anion gap [Moles/Vol] 18 mmol/L [facility] Automated lymphocyte count a s percentage of total leukocytesOrdered By: Jody Servin on 12-20-2024 Lymphocytes/100 WBC Auto (Unsp spec) 11.8 % Low - [facility] Automated lymphocyte count a s percentage of total leukocytesOrdered By: Boyd Rock on 12-20-2024 Lymphocytes/100 WBC Auto (Unsp spec) 10.5 % Low - [facility] BUN/creatinine ratioOrdered By: Jody Servin on 12-20-2024 Urea nitrogen/Creatinine [Mass ratio] 19.5 mg/mg 02-19 [facility] BUN/creatinine ratioOrdered By: Boyd Rock on 12-20-2024 Urea nitrogen/Creatinine [Mass ratio] 20.4 mg/mg High 02-19 [facility] Basophil percentageOrdered B y: Jody Servin on 12-20-2024 Basophils/100 WBC (Bld) 0.2 % 0-1 [facility] Basophil percentageOrdered B y: Boyd Rock on 12-20-2024 Basophils/100 WBC (Bld) 0.3 % 0-1 [facility] Bilirubin, totalOrdered By: Jody Servin on 12-20-2024 Bilirubin [Mass/Vol] 1.15 mg/dL 0.00-1.30 [facility] Bilirubin, totalOrdered By: Boyd Rock on 12-20-2024 Bilirubin [Mass/Vol] 1.08 mg/dL 0.00-1.30 [facility] CBC W/Diff, Automatedon 12-02 Absolute Lymph 1.39 X10 3/uL Normal 0.83-4.51 [facility] Comment on above: Performed By: #### L 300.3900, L300.4310, L100.0100 ####[facility] [address] [place], [address] Absolute Neut 9.0 X10 3/uL High 2.0-7.7 [facility] Comment on above: Performed By: #### L 300.3900, L300.4310, L100.0100 ####[facility] [address] [place], [address] Basophils/100 WBC (Bld) 0.2 % Normal 0-1 [facility] Comment on above: Performed By: #### L 300.3900, L300.4310, L100.0100 ####[facility] [address] [place], [address] Eosinophils/100 WBC (Bld) 0.1 % Normal 0-5 [facility] Comment on above: Performed By: #### L 300.3900, L300.4310, L100.0100 ####[facility] [address] [place], [address] Erythrocyte distribution width (RBC) [Ratio] 13.8 % Normal 11.6-14.6 [facility] Comment on above: Performed By: #### L 300.3900, L300.4310, L100.0100 ####[facility] [address] [place], [address] Hematocrit (Bld) [Volume fraction] 41.8 % Normal 40-54 [facility] Comment on above: Performed By: #### L 300.3900, L300.4310, L100.0100 ####[facility] [address] [place], [address] Hemoglobin (Bld) [Mass/Vol] 13.8 g/dL Normal 13.0-16.5 [facility] Comment on above: Performed By: #### L 300.3900, L300.4310, L100.0100 ####[facility] [address] [place], [address] IG% 0.500 Normal 0.0-0.9 [facility] Comment on above: Result Comment: IG% - Immature Granulocytes (promyelocytes, myelocytes andmetamyelocytes) > 1% indicates that a LEFT SHIFT is Present. Performed By: #### L 300.3900, L300.4310, L100.0100 ####[facility] [address] [place], [address] Lymphocytes/100 WBC (Bld) 11.8 % Low 19-41 [facility] Comment on above: Performed By: #### L 300.3900, L300.4310, L100.0100 ####[facility] [address] [place], [address] MCH (RBC) [Entitic mass] 28.6 pg Normal 27.0-32.0 [facility] Comment on above: Performed By: #### L 300.3900, L300.4310, L100.0100 ####[facility] [address] [place], [address] MCHC (RBC) [Mass/Vol] 33.0 g/dL Normal 32-[address] [facility] Comment on above: Performed By: #### L 300.3900, L300.4310, L100.0100 ####[facility] [address] [place], [address] MCV (RBC) [Entitic vol] 86.7 fL Normal 80-94 [facility] Comment on above: Performed By: #### L 300.3900, L300.4310, L100.0100 ####[facility] [address] [place], [address] Monocytes/100 WBC (Bld) 11.5 % High 0-10 [facility] Comment on above: Performed By: #### L 300.3900, L300.4310, L100.0100 ####[facility] [address] [place], [address] Neutrophils/100 WBC (Bld) 75.9 % High 47-70 [facility] Comment on above: Performed By: #### L 300.3900, L300.4310, L100.0100 ####[facility] [address] [place], [address] Nucleated RBC (Bld) [#/Vol] 0 10*3/uL Normal 0-5 [facility] Comment on above: Performed By: #### L 300.3900, L300.4310, L100.0100 ####[facility] [address] [place], [address] Platelet mean volume (Bld) [Entitic vol] 13.3 fL High 6.2-12.0 [facility] Comment on above: Performed By: #### L 300.3900, L300.4310, L100.0100 ####[facility] [address] [place], [address] Platelets (Bld) [#/Vol] 231 10*3/uL Normal 150-450 [facility] Comment on above: Performed By: #### L 300.3900, L300.4310, L100.0100 ####[facility] [address] [place], [address] RBC (Bld) [#/Vol] 4.82 10*6/uL Normal 4.6-6.2 [facility] Comment on above: Performed By: #### L 300.3900, L300.4310, L100.0100 ####[facility] [address] [place], [address] RDW SD 43.2 fl Normal 35.1-43.9 [facility] Comment on above: Performed By: #### L 300.3900, L300.4310, L100.0100 ####[facility] [address] [place], [address] WBC (Bld) [#/Vol] 11.8 10*3/uL High 4.4-11.0 [facility] Comment on above: Performed By: #### L 300.3900, L300.4310, L100.0100 ####[facility] [address] [place], [address] CTA Abd/Pelvis W/WO Contrast on 12-20-2024 CTA Abd/Pelvis W/WO Contrast Normal [facility] Carbon dioxide, total [Moles /volume] in Central venous bloodOrdered By: Jody Servin on 12-20-2024 CO2 [Moles/Vol] 18.5 mmol/L Low 21.0-32.0 [facility] Carbon dioxide, total [Moles /volume] in Central venous bloodOrdered By: Boyd Rock on 12-20-2024 CO2 [Moles/Vol] 18.6 mmol/L Low 21.0-32.0 [facility] Chest PA and Lateralon 12-20 Chest PA and Lateral Normal [facility] Chloride assayOrdered By: Charlie Servin on 12-20-2024 Chloride [Moles/Vol] 93 mmol/L Low 98-108 [facility] Chloride assayOrdered By: Susanna Rock on 12-20-2024 Chloride [Moles/Vol] 94 mmol/L Low 98-108 [facility] Comprehensive Metabolic Prof ilon 12-20-2024 Albumin [Mass/Vol] 4.0 g/dL Normal 3.4-4.8 [facility] Comment on above: Performed By: #### L 501.5200, L500.4050, L501.2450 ####[facility] [address] [place], [address] Albumin/Globulin [Mass ratio] 1.0 {ratio} Normal 0.9-2.4 [facility] Comment on above: Performed By: #### L 501.5200, L500.4050, L501.2450 ####[facility] [address] [place], [address] ALK PHOS 180 U/L High 40-129 [facility] Comment on above: Performed By: #### L 501.5200, L500.4050, L501.2450 ####[facility] [address] [place], [address] ALT [Catalytic activity/Vol] 32 U/L Normal <=46 [facility] Comment on above: Performed By: #### L 501.5200, L500.4050, L501.2450 ####[facility] [address] [place], [address] AST [Catalytic activity/Vol] 28 U/L Normal <=37 [facility] Comment on above: Performed By: #### L 501.5200, L500.4050, L501.2450 ####[facility] [address] [place], [address] Bilirubin [Mass/Vol] 1.15 mg/dL Normal 0.00-1.30 [facility] Comment on above: Performed By: #### L 501.5200, L500.4050, L501.2450 ####[facility] [address] [place], [address] BUN/CRE 19.5 RATIO Normal 10-20 [facility] Comment on above: Performed By: #### L 501.5200, L500.4050, L501.2450 ####[facility] [address] [place], [address] Calcium [Mass/Vol] 9.5 mg/dL Normal 7.6-11.0 [facility] Comment on above: Performed By: #### L 501.5200, L500.4050, L501.2450 ####[facility] [address] [place], [address] Chloride [Moles/Vol] 93 mmol/L Low 98-108 [facility] Comment on above: Performed By: #### L 501.5200, L500.4050, L501.2450 ####[facility] [address] [place], [address] CO2 [Moles/Vol] 18.5 mmol/L Low 21.0-32.0 [facility] Comment on above: Performed By: #### L 501.5200, L500.4050, L501.2450 ####[facility] [address] [place], [address] Creatinine [Mass/Vol] 3.24 mg/dL High 0.70-1.[address] [facility] Comment on above: Performed By: #### L 501.5200, L500.4050, L501.2450 ####[facility] [address] [place], [address] ECRCL 21.32 ml/min Low 50-250 [facility] Comment on above: Performed By: #### L 501.5200, L500.4050, L501.2450 ####[facility] [address] [place], [address] GAP 19 High 5-15 [facility] Comment on above: Performed By: #### L 501.5200, L500.4050, [id number] ####[facility] [id number] [place], [address] GFR/1.73 sq M.predicted among non-blacks MDRD (S/P/Bld) [Vol rate/Area] 19 mL/min/{1.73_m2} Low >60 [facility] Comment on above: Result Comment: mL/m in/1.73m2 CKD-EPI Creatinine Equation (2020) Performed By: #### L 501.5200, L500.4050, L501.2450 ####[facility] [id number] [place], [address] Globulin (S) [Mass/Vol] 4.0 g/dL Normal 2.2-4.2 [facility] Comment on above: Performed By: #### L 501.5200, L500.4050, L501.2450 ####[facility] [address] [place], [address] Glucose [Mass/Vol] 173 mg/dL High 70-99 [facility] Comment on above: Performed By: #### L 501.5200, L500.4050, L501.2450 ####[facility] [address] [place], [address] Potassium [Moles/Vol] 4.2 mmol/L Normal 3.3-5.[address] [facility] Comment on above: Performed By: #### L 501.5200, L500.4050, L501.2450 ####[facility] [address] [place], [address] Sodium [Moles/Vol] 131 mmol/L Low 133-145 [facility] Comment on above: Performed By: #### L 501.5200, L500.4050, L501.2450 ####[facility] [address] [place], [address] T PROT 8.0 g/dL Normal 5.9-8.4 [facility] Comment on above: Performed By: #### L 501.5200, L500.4050, L501.2450 ####[facility] [address] [place], [address] Urea nitrogen [Mass/Vol] 63 mg/dL High 4-19 [facility] Comment on above: Performed By: #### L 501.5200, L500.4050, L501.2450 ####[facility] [address] [place], [place], [id number] Emergency Department Summary on 12-20-2024 Emergency Department Summary Normal [facility] Eosinophil percentageOrdered By: Jody Servin on 12-20-2024 Eosinophils/100 WBC (Bld) 0.1 % 0-5 [facility] Eosinophil percentageOrdered By: Boyd Rock on 12-20-2024 Eosinophils/100 WBC (Bld) 0.2 % 0-5 [facility] Erythrocyte distribution wid th ratioOrdered By: Jody Servin on 12-20-2024 Erythrocyte distribution width (RBC) [Ratio] 13.8 % 11.6-14.6 [facility] Erythrocyte distribution wid th ratioOrdered By: Boyd Videse on 12-20-2024 Erythrocyte distribution width (RBC) [Ratio] 13.7 % 11.6-14.6 [facility] Erythrocyte distribution wid th standard deviationOrdered By: Jody Servin on 12-20-2024 Erythrocyte distribution width (RBC) [Ratio] 43.2 fl 35.1-43.9 [facility] Erythrocyte distribution wid th standard deviationOrdered By: Boyd Rock on 12-20-2024 Erythrocyte distribution width (RBC) [Ratio] 43.4 fl 35.1-43.9 [facility] Glomerular filtration rate ( GFR) estimation/1.73 sq m using serum, plasma, or whole bOrdered By: Jody Servin on 12-20-2024 GFR/1.73 sq M.predicted among non-blacks MDRD (S/P/Bld) [Vol rate/Area] 19 mL/min/{1.73_m2} Low >60 [facility] Glomerular filtration rate ( GFR) estimation/1.73 sq m using serum, plasma, or whole bOrdered By: Boyd Rock on 12-20-2024 GFR/1.73 sq M.predicted among non-blacks MDRD (S/P/Bld) [Vol rate/Area] 18 mL/min/{1.73_m2} Low >60 [facility] Hematocrit Auto (Bld) [Volum e fraction]Ordered By: Jody Servin on 12-20-2024 Hematocrit (Bld) [Volume fraction] 41.8 % 40-54 [facility] Hematocrit Auto (Bld) [Volum e fraction]Ordered By: Boyd Rock on 12-20-2024 Hematocrit (Bld) [Volume fraction] 41.1 % 40-54 [facility] Hemoglobin measurementOrdere d By: Jody Servin on 12-20-2024 Hemoglobin (Bld) [Mass/Vol] 13.8 g/dL 13.0-16.5 [facility] Hemoglobin measurementOrdere d By: Boyd Rock on 12-20-2024 Hemoglobin (Bld) [Mass/Vol] 13.6 g/dL 13.0-16.5 [facility] Immature granulocytes/100 WB C Auto (Bld)Ordered By: Jody Servin on 12-20-2024 Immature granulocytes/100 WBC (Bld) 0.500 % 0.0-0.9 [facility] Immature granulocytes/100 WB C Auto (Bld)Ordered By: Boyd Rock on 12-20-2024 Immature granulocytes/100 WBC (Bld) 0.800 % 0.0-0.9 [facility] Lipaseon 12-20-2024 Lipase [Catalytic activity/Vol] 120 U/L High 13-75 [facility] Comment on above: Result Comment: Noah fletcher note:LIPASE revised reference range effective 22.New Lipase methodology. Expected to produce lower valuesthan the previous assay method.NEW Reference Range: 13 - 75 U/L Performed By: #### L 501.5200, L500.4050, L501.2450 ####[facility] [address] [place], [place], [address] MCV (mean corpuscular volume ) determinationOrdered By: Jody Servin on 12-20-2024 MCV (RBC) [Entitic vol] 86.7 fL 80-94 [facility] MCV (mean corpuscular volume ) determinationOrdered By: Boyd Videse on 12-20-2024 MCV (RBC) [Entitic vol] 87.6 fL 80-94 [facility] Magnesiumon 12-20-2024 Magnesium [Mass/Vol] 2.4 mg/dL High 1.5-2.2 [facility] Comment on above: Performed By: #### L 501.5200, L500.4050, L501.2450 ####[facility] [address] [facility] [place], [address] Magnesium measurement (mass/ volume)Ordered By: Jody Servin on 12-20-2024 Magnesium (Unsp spec) [Mass/Vol] 2.4 mg/dL High 1.5-2.2 [facility] Mean corpuscular hemoglobin (MCH) determinationOrdered By: Jody Servin on 12-20-2024 MCH (RBC) [Entitic mass] 28.6 pg 27.0-32.0 [facility] Mean corpuscular hemoglobin (MCH) determinationOrdered By: Boyd Rock on 12-20-2024 MCH (RBC) [Entitic mass] 29.0 pg 27.0-32.0 [facility] Monocyte percentageOrdered B y: Jody Servin on 12-20-2024 Monocytes/100 WBC (Bld) 11.5 % High 0-10 [facility] Monocyte percentageOrdered B y: Efgarryongbe Mahoganye on 12-20-2024 Monocytes/100 WBC (Bld) 12.1 % High 0-10 [facility] Neutrophil percentageOrdered By: Jody Servin on 12-20-2024 Neutrophils/100 WBC (Bld) 75.9 % High 47-70 [facility] Neutrophil percentageOrdered By: Efmeenabe [place]og[place]e on 12-20-2024 Neutrophils/100 WBC (Bld) 76.1 % High 47-70 [facility] No Panel InformationOrdered By: Jody Servin on 12-20-2024 28 U/L <38 [facility] No Panel InformationOrdered By: Susannagarrytesha Rock on 12-20-2024 29 U/L <38 [facility] Partial Thromboplast Timeon 12-20-2024 aPTT Coag (Bld) [Time] 27.6 s Normal 24.1-36.2 [facility] Comment on above: Performed By: #### L 300.3900, L300.4310, L100.0100 ####[facility] [address] [place], [place], [id number] Platelet countOrdered By: Charlie Servin on 12-20-2024 Platelets (Bld) [#/Vol] 231 10*3/uL 150-450 [facility] Platelet countOrdered By: Susanna garryabbeybrittni Garrymiveronica on 12-20-2024 Platelets (Bld) [#/Vol] 208 10*3/uL 150-450 [facility] Potassium measurement (mass/ volume)Ordered By: Jody Servin on 12-20-2024 Potassium (Unsp spec) [Mass/Vol] 4.2 mmol/L 3.3-5.1 [facility] Potassium measurement (mass/ volume)Ordered By: Boyd Rock on 12-20-2024 Potassium (Unsp spec) [Mass/Vol] 4.0 mmol/L 3.3-5.1 [facility] Prothrombin Time w/INRon INR Coag (PPP) [Relative time] 1.1 {INR} Normal [facility] Comment on above: Performed By: #### L 300.3900, L300.4310, L100.0100 ####[facility] [address] [place], [address] PT Coag (PPP) [Time] 14.1 s Normal 11.7-14.9 [facility] Comment on above: Performed By: #### L 300.3900, L300.4310, L100.0100 ####[facility] [address] [place], [address] Prothrombin timeOrdered By: Jody Servin on 12-20-2024 PT Coag (PPP) [Time] 14.1 s 11.7-14.9 [facility] RBC Auto (Bld) [#/Vol]Ordere d By: Jody Servin on 12-20-2024 RBC (Bld) [#/Vol] 4.82 10*6/uL 4.6-6.2 [facility] RBC Auto (Bld) [#/Vol]Ordere d By: Boyd Rock on 12-20-2024 RBC (Bld) [#/Vol] 4.69 10*6/uL 4.6-6.2 [facility] Serum creatinine measurement (mass/volume)Ordered By: Jody Servin on 12-20-2024 Creatinine [Mass/Vol] 3.24 mg/dL High 0.70-1.[address] [facility] Serum creatinine measurement (mass/volume)Ordered By: Boyd Rock on 12-20-2024 Creatinine [Mass/Vol] 3.35 mg/dL High 0.70-1.[address] [facility] Serum globulin measurementOr dered By: Jody Servin on 12-20-2024 Globulin (S) [Mass/Vol] 4.0 g/dL 2.2-4.2 [facility] Serum globulin measurementOr dered By: Boyd Rock on 12-20-2024 Globulin (S) [Mass/Vol] 3.7 g/dL 2.2-4.2 [facility] Serum glucose measurement (m ass/volume)Ordered By: Jody Servin on 12-20-2024 Glucose [Mass/Vol] 173 mg/dL High 70-99 [facility] Serum glucose measurement (m ass/volume)Ordered By: Boyd Rock on 12-20-2024 Glucose [Mass/Vol] 205 mg/dL High 70-99 [facility] Serum or plasma alanine guerrero otransferase (ALT) measurementOrdered By: Jody Servin on 12-20-2024 ALT [Catalytic activity/Vol] 32 U/L <47 [facility] Serum or plasma alanine guerrero otransferase (ALT) measurementOrdered By: Boyd Rock on 12-20-2024 ALT [Catalytic activity/Vol] 31 U/L <47 [facility] Serum or plasma albumin francine urement (mass/volume)Ordered By: Jody Servin on 12-20-2024 Albumin [Mass/Vol] 4.0 g/dL 3.4-4.8 [facility] Serum or plasma albumin francine urement (mass/volume)Ordered By: Boyd Rock on 12-20-2024 Albumin [Mass/Vol] 4.0 g/dL 3.4-4.8 [facility] Serum or plasma albumin/glob ulin mass ratioOrdered By: Jody Servin on 12-20-2024 Albumin/Globulin [Mass ratio] 1.0 {ratio} 0.9-2.4 [facility] Serum or plasma albumin/glob ulin mass ratioOrdered By: Boyd Rock on 12-20-2024 Albumin/Globulin [Mass ratio] 1.1 {ratio} 0.9-2.4 [facility] Serum or plasma alkaline bell sphatase measurementOrdered By: Jody Servin on 12-20-2024 ALP [Catalytic activity/Vol] 180 U/L High 40-129 [facility] Serum or plasma alkaline bell sphatase measurementOrdered By: Boyd Rock on 12-20-2024 ALP [Catalytic activity/Vol] 167 U/L High 40-129 [facility] Serum or plasma calcium francine urement (mass/volume)Ordered By: Jody Servin on 12-20-2024 Calcium [Mass/Vol] 9.5 mg/dL 7.6-11.0 [facility] Serum or plasma calcium francine urement (mass/volume)Ordered By: Boyd Rock on 12-20-2024 Calcium [Mass/Vol] 9.2 mg/dL 7.6-11.0 [facility] Serum or plasma urea nitroge n measurement (mass/volume)Ordered By: Jody Servin on 12-20-2024 Urea nitrogen [Mass/Vol] 63 mg/dL High 08-19 [facility] Serum or plasma urea nitroge n measurement (mass/volume)Ordered By: Boyd Rock on 12-20-2024 Urea nitrogen [Mass/Vol] 69 mg/dL High 08-19 [facility] Sodium levelOrdered By: Shaan Servin on 12-20-2024 Sodium [Moles/Vol] 131 mmol/L Low 133-145 [facility] Sodium levelOrdered By: Lupe ortizveronica Shweta on 12-20-2024 Sodium [Moles/Vol] 131 mmol/L Low 133-145 [facility] Stool Occult Blood iFOBon STOB Positive Normal [facility] Comment on above: Performed By: #### M 100.7900 ####[facility] [address] [place], [address] Stool gastrointestinal hemog lobin detection by immunologic methodOrdered By: Jody Servin on 12-20-2024 Lower GI hemoglobin IA Ql (Stl) Positive Abnormal [facility] Total proteinOrdered By: Gunjan Servin on 12-20-2024 Protein [Mass/Vol] 8.0 g/dL 5.9-8.4 [facility] Total proteinOrdered By: Anastacio Rock on 12-20-2024 Protein [Mass/Vol] 7.7 g/dL 5.9-8.4 [facility] Type AND Screenon 12-20-2024 ABO and Rh group Nom (Bld) Blood group O Rh(D) positive Normal [facility] Comment on above: Order Comment: Has p t arrived? YHGI Performed By: #### B TS ####[facility] [address] [place], [address] White blood cell (WBC) count Ordered By: Jody Servin on 12-20-2024 WBC (Bld) [#/Vol] 11.8 10*3/uL High 4.4-11.0 [facility] White blood cell (WBC) count Ordered By: Boyd Rock on 08-20-2025 WBC (Bld) [#/Vol] 10.3 10*3/uL 4.4-11.0 [facility] Clostridium difficile detect ion by polymerase chain reactionOrdered By: Boyd Rock on 12-18-2024 C. difficile DNA REAGAN+probe Ql (Unsp spec) [facility] Bedside Glucoseon 12-17-2024 FINGERSTICK GLU 253 mg/dL High 74-106 [facility] Comment on above: Result Comment: WILDA GEMENT OF PATIENT CARE PER NURSING PROTOCOL Performed By: #### L 501.080 ####[facility] [address] [place], [address] FINGERSTICK GLU 178 mg/dL High 74-106 [facility] Comment on above: Result Comment: WILDA GEMENT OF PATIENT CARE PER NURSING PROTOCOL Performed By: #### L 501.080 ####[facility] [address] [place], [place], [address] [facility] deOrdered By: Marycarmen Marlow on 12-17-2024 Glucose [Mass/Vol] 253 mg/dL High 74-106 [facility] Absolute lymphocyte countOrd ered By: Ramonita Herron on 12-16-2024 Lymphocytes Auto (Unsp spec) [#/Vol] 0.93 10*3/uL 0.83-4.51 [facility] Anion gap in Serum or Plasma Ordered By: Ramonita Herron on 12-16-2024 Anion gap [Moles/Vol] 18 mmol/L High 5-[address] [facility] Automated lymphocyte count a s percentage of total leukocytesOrdered By: Ramonita Herron on 12-16-2024 Lymphocytes/100 WBC Auto (Unsp spec) 10.7 % Low 19-41 [facility] BUN/creatinine ratioOrdered By: Ramonita Herron on 12-16-2024 Urea nitrogen/Creatinine [Mass ratio] 21.8 mg/mg High 10-20 [facility] Basic Metabolic Profile (BMP )on 12-16-2024 BUN/CRE 21.8 RATIO High - [facility] Comment on above: Performed By: #### L 500.2500, L100.0100 ####[facility] [address] [place], [address] Calcium [Mass/Vol] 9.3 mg/dL Normal 7.6-11.0 [facility] Comment on above: Performed By: #### L 500.2500, L100.0100 ####[facility] [address] [place], [address] Chloride [Moles/Vol] 93 mmol/L Low 98-108 [facility] Comment on above: Performed By: #### L 500.2500, L100.0100 ####[facility] [address] [place], [address] CO2 [Moles/Vol] 19.2 mmol/L Low 21.0-32.0 [facility] Comment on above: Performed By: #### L 500.2500, L100.0100 ####[facility] [address] [place], [address] Creatinine [Mass/Vol] 2.65 mg/dL High 0.70-1.[address] [facility] Comment on above: Performed By: #### L 500.2500, L100.0100 ####[facility] [address] [place], [address] ECRCL 25.90 ml/min Low 50-250 [facility] Comment on above: Performed By: #### L 500.2500, L100.0100 ####[facility] [address] [place], [address] GAP 18 High 5-15 [facility] Comment on above: Performed By: #### L 500.2500, L100.0100 ####[facility] [address] [place], [address] GFR/1.73 sq M.predicted among non-blacks MDRD (S/P/Bld) [Vol rate/Area] 24 mL/min/{1.73_m2} Low >60 [facility] Comment on above: Result Comment: mL/m in/1.73m2 CKD-EPI Creatinine Equation (2020) Performed By: #### L 500.2500, L100.0100 ####[facility] [address] [place], [address] Glucose [Mass/Vol] 182 mg/dL High 70-99 [facility] Comment on above: Performed By: #### L 500.2500, L100.0100 ####[facility] [address] [place], [address] Potassium [Moles/Vol] 3.8 mmol/L Normal 3.3-5.[address] [facility] Comment on above: Performed By: #### L 500.2500, L100.0100 ####[facility] [address] [place], [address] Sodium [Moles/Vol] 131 mmol/L Low 133-145 [facility] Comment on above: Performed By: #### L 500.2500, L100.0100 ####[facility] [address] [place], [address] Urea nitrogen [Mass/Vol] 58 mg/dL High 4-19 [facility] Comment on above: Performed By: #### L 500.2500, L100.0100 ####[facility] [address] [place], [address] Basophil percentageOrdered B y: Ramonitadwain Herron on 12-16-2024 Basophils/100 WBC (Bld) 0.2 % 0-1 [facility] Bedside Glucoseon 12-16-2024 FINGERSTICK GLU 215 mg/dL High 74-106 [facility] Comment on above: Result Comment: WILDA BARROSO OF PATIENT CARE PER NURSING PROTOCOL Performed By: #### L 501.080 ####[facility] [address] [place], [address] FINGERSTICK GLU 237 mg/dL High 74-106 [facility] Comment on above: Result Comment: WILDA GEMENT OF PATIENT CARE PER NURSING PROTOCOL Performed By: #### L 501.080 ####[facility] [address] [place] [place], [address] FINGERSTICK GLU 152 mg/dL High 74-106 [facility] Comment on above: Result Comment: WILDA GEMENT OF PATIENT CARE PER NURSING PROTOCOL Performed By: #### L 501.080 ####[facility] [address] [place], [address] FINGERSTICK GLU 169 mg/dL High 74-106 [facility] Comment on above: Result Comment: WILDA GEMENT OF PATIENT CARE PER NURSING PROTOCOL Performed By: #### L 501.080 ####[facility] [address] [place], [address] CBC W/Diff, Automatedon 12-01 Absolute Lymph 0.93 X10 3/uL Normal 0.83-4.51 [facility] Comment on above: Performed By: #### L 500.2500, L100.0100 ####[facility] [address] [place], [address] Absolute Neut 6.6 X10 3/uL Normal 2.0-7.7 [facility] Comment on above: Performed By: #### L 500.2500, L100.0100 ####[facility] [address] [place], [address] Basophils/100 WBC (Bld) 0.2 % Normal 0-1 [facility] Comment on above: Performed By: #### L 500.2500, L100.0100 ####[facility] [address] [place], [address] Eosinophils/100 WBC (Bld) 0.5 % Normal 0-5 [facility] Comment on above: Performed By: #### L 500.2500, L100.0100 ####[facility] [address] [place], [address] Erythrocyte distribution width (RBC) [Ratio] 13.4 % Normal 11.6-14.6 [facility] Comment on above: Performed By: #### L 500.2500, L100.0100 ####[facility] [address] [place], [address] Hematocrit (Bld) [Volume fraction] 40.1 % Normal 40-54 [facility] Comment on above: Performed By: #### L 500.2500, L100.0100 ####[facility] [address] [place], [address] Hemoglobin (Bld) [Mass/Vol] 13.3 g/dL Normal 13.0-16.5 [facility] Comment on above: Performed By: #### L 500.2500, L100.0100 ####[facility] [address] [place], [address] IG% 0.800 Normal 0.0-0.9 [facility] Comment on above: Result Comment: IG% - Immature Granulocytes (promyelocytes, myelocytes andmetamyelocytes) > 1% indicates that a LEFT SHIFT is Present. Performed By: #### L 500.2500, L100.0100 ####[facility] [address] [place], [address] Lymphocytes/100 WBC (Bld) 10.7 % Low 19-41 [facility] Comment on above: Performed By: #### L 500.2500, L100.0100 ####[facility] [address] [place], [address] MCH (RBC) [Entitic mass] 28.6 pg Normal 27.0-32.0 [facility] Comment on above: Performed By: #### L 500.2500, L100.0100 ####[facility] [address] [place], [address] MCHC (RBC) [Mass/Vol] 33.2 g/dL Normal 32-[address] [facility] Comment on above: Performed By: #### L 500.2500, L100.0100 ####[facility] [address] [place], [address] MCV (RBC) [Entitic vol] 86.2 fL Normal 80-94 [facility] Comment on above: Performed By: #### L 500.2500, L100.0100 ####[facility] [address] [place], [address] Monocytes/100 WBC (Bld) 12.1 % High 0-10 [facility] Comment on above: Performed By: #### L 500.2500, L100.0100 ####[facility] [address] [place], [address] Neutrophils/100 WBC (Bld) 75.7 % High 47-70 [facility] Comment on above: Performed By: #### L 500.2500, L100.0100 ####[facility] [address] [place], [address] Nucleated RBC (Bld) [#/Vol] 0 10*3/uL Normal 0-5 [facility] Comment on above: Performed By: #### L 500.2500, L100.0100 ####[facility] [address] [place], [address] Platelet mean volume (Bld) [Entitic vol] 13.2 fL High 6.2-12.0 [facility] Comment on above: Performed By: #### L 500.2500, L100.0100 ####[facility] [address] [place], [address] Platelets (Bld) [#/Vol] 181 10*3/uL Normal 150-450 [facility] Comment on above: Performed By: #### L 500.2500, L100.0100 ####[facility] [address] [place], [address] RBC (Bld) [#/Vol] 4.65 10*6/uL Normal 4.6-6.2 [facility] Comment on above: Performed By: #### L 500.2500, L100.0100 ####[facility] [address] [place], [address] RDW SD 42.2 fl Normal 35.1-43.9 [facility] Comment on above: Performed By: #### L 500.2500, L100.0100 ####[facility] [address] [place], [address] WBC (Bld) [#/Vol] 8.7 10*3/uL Normal 4.4-11.0 [facility] Comment on above: Performed By: #### L 500.2500, L100.0100 ####[facility] [address] [place], [address] Carbon dioxide, total [Moles /volume] in Central venous bloodOrdered By: Ramonita Herron on 12-16-2024 CO2 [Moles/Vol] 19.2 mmol/L Low 21.0-32.0 [facility] Chloride assayOrdered By: Parish Herron on 12-16-2024 Chloride [Moles/Vol] 93 mmol/L Low 98-108 [facility] Eosinophil percentageOrdered By: Ramonita Herron on 12-16-2024 Eosinophils/100 WBC (Bld) 0.5 % 0-5 [facility] Erythrocyte distribution wid th ratioOrdered By: Ramonita Herron on 12-16-2024 Erythrocyte distribution width (RBC) [Ratio] 13.4 % 11.6-14.6 [facility] Erythrocyte distribution wid th standard deviationOrdered By: Ramonita Herron on 12-16-2024 Erythrocyte distribution width (RBC) [Ratio] 42.2 fl 35.1-43.9 [facility] Glomerular filtration rate ( GFR) estimation/1.73 sq m using serum, plasma, or whole bOrdered By: Ramonita Herron on 12-16-2024 GFR/1.73 sq M.predicted among non-blacks MDRD (S/P/Bld) [Vol rate/Area] 24 mL/min/{1.73_m2} Low >60 [facility] Hematocrit Auto (Bld) [Volum e fraction]Ordered By: Ramonita Herron on 12-16-2024 Hematocrit (Bld) [Volume fraction] 40.1 % 40-54 [facility] Hemoglobin measurementOrdere d By: Ramonita Herron on 12-16-2024 Hemoglobin (Bld) [Mass/Vol] 13.3 g/dL 13.0-16.5 [facility] Immature granulocytes/100 WB C Auto (Bld)Ordered By: Ramonita Herron on 12-16-2024 Immature granulocytes/100 WBC (Bld) 0.800 % 0.0-0.9 [facility] MCV (mean corpuscular volume ) determinationOrdered By: Ramonita Herron on 12-16-2024 MCV (RBC) [Entitic vol] 86.2 fL 80-94 [facility] Mean corpuscular hemoglobin (MCH) determinationOrdered By: Ramonita Herron on 12-16-2024 MCH (RBC) [Entitic mass] 28.6 pg 27.0-32.0 [facility] Monocyte percentageOrdered B y: Ramonita Herron on 12-16-2024 Monocytes/100 WBC (Bld) 12.1 % High 0-10 [facility] Neutrophil percentageOrdered By: Ramonita Herron on 12-16-2024 Neutrophils/100 WBC (Bld) 75.7 % High 47-70 [facility] Platelet countOrdered By: Parish Herron on 12-16-2024 Platelets (Bld) [#/Vol] 181 10*3/uL 150-450 [facility] Potassium measurement (mass/ volume)Ordered By: Ramonita Herron on 12-16-2024 Potassium (Unsp spec) [Mass/Vol] 3.8 mmol/L 3.3-5.1 [facility] RBC Auto (Bld) [#/Vol]Ordere d By: Ramonita Herron on 12-16-2024 RBC (Bld) [#/Vol] 4.65 10*6/uL 4.6-6.2 [facility] Serum creatinine measurement (mass/volume)Ordered By: Ramonita Herron on 12-16-2024 Creatinine [Mass/Vol] 2.65 mg/dL High 0.70-1.[address] [facility] Serum glucose measurement (m ass/volume)Ordered By: Ramonita Herron on 12-16-2024 Glucose [Mass/Vol] 182 mg/dL High 70-99 [facility] Serum or plasma calcium francine urement (mass/volume)Ordered By: Ramonita Herron on 12-16-2024 Calcium [Mass/Vol] 9.3 mg/dL 7.6-11.0 [facility] Serum or plasma urea nitroge n measurement (mass/volume)Ordered By: Ramonita Herron on 12-16-2024 Urea nitrogen [Mass/Vol] 58 mg/dL High 4-19 [facility] Sodium levelOrdered By: Mary Herron on 12-16-2024 Sodium [Moles/Vol] 131 mmol/L Low 133-145 [facility] White blood cell (WBC) count Ordered By: Ramonita Herron on 12-16-2024 WBC (Bld) [#/Vol] 8.7 10*3/uL 4.4-11.0 [facility] 12 Lead EKGon 12-15-2024 [address] [facility] Activated partial thrombopla stin time (aPTT) in platelet poor plasma by coagulation aOrdered By: Payal Weldon on 12-15-2024 aPTT Coag (PPP) [Time] 222.8 s High 24.1-36.2 [facility] Basic Metabolic Profile (BMP )on 12-15-2024 BUN/CRE 20.4 RATIO High 10-20 [facility] Comment on above: Performed By: #### L 100.0100, L300.4310, L300.3900, L503.7505, L500.2500, L501.4021 ####[facility] [address] [place], [place], [address] Calcium [Mass/Vol] 9.5 mg/dL Normal 7.6-11.0 [facility] Comment on above: Performed By: #### L 100.0100, L300.4310, L300.3900, L503.7505, L500.2500, L501.4021 ####[facility] [address] [place], [address] Chloride [Moles/Vol] 91 mmol/L Low 98-108 [facility] Comment on above: Performed By: #### L 100.0100, L300.4310, L300.3900, L503.7505, L500.2500, L501.4021 ####[facility] [address] [place], [address] CO2 [Moles/Vol] 18.4 mmol/L Low 21.0-32.0 [facility] Comment on above: Performed By: #### L 100.0100, L300.4310, L300.3900, L503.7505, L500.2500, L501.4021 ####[facility] [address] [place], [address] Creatinine [Mass/Vol] 2.90 mg/dL High 0.70-1.[address] [facility] Comment on above: Performed By: #### L 100.0100, L300.4310, L300.3900, L503.7505, L500.2500, L501.4021 ####[facility] [address] [place], [address] ECRCL 23.97 ml/min Low 50-250 [facility] Comment on above: Performed By: #### L 100.0100, L300.4310, L300.3900, L503.7505, L500.2500, L501.4021 ####[facility] [address] [place], [address] GAP 19 High 5-15 [facility] Comment on above: Performed By: #### L 100.0100, L300.4310, L300.3900, L503.7505, L500.2500, L501.4021 ####[facility] [address] [place], [address] GFR/1.73 sq M.predicted among non-blacks MDRD (S/P/Bld) [Vol rate/Area] 21 mL/min/{1.73_m2} Low >60 [facility] Comment on above: Result Comment: mL/m in/1.73m2 CKD-EPI Creatinine Equation (2020) Performed By: #### L 100.0100, L300.4310, L300.3900, L503.7505, L500.2500, L501.4021 ####[facility] [address] [place], [address] Glucose [Mass/Vol] 266 mg/dL High 70-99 [facility] Comment on above: Performed By: #### L 100.0100, L300.4310, L300.3900, L503.7505, L500.2500, L501.4021 ####[facility] [address] [place], [address] Potassium [Moles/Vol] 4.5 mmol/L Normal 3.3-5.[address] [facility] Comment on above: Performed By: #### L 100.0100, L300.4310, L300.3900, L503.7505, L500.2500, L501.4021 ####[facility] [address] [place], [address] Sodium [Moles/Vol] 129 mmol/L Low 133-145 [facility] Comment on above: Performed By: #### L 100.0100, L300.4310, L300.3900, L503.7505, L500.2500, L501.4021 ####[facility] [address] [place], [address] Urea nitrogen [Mass/Vol] 59 mg/dL High 4-19 [facility] Comment on above: Performed By: #### L 100.0100, L300.4310, L300.3900, L503.7505, L500.2500, L501.4021 ####[facility] [address] [place], [address] Bedside Glucoseon 12-15-2024 FINGERSTICK GLU 192 mg/dL High 74-106 [facility] Comment on above: Result Comment: WILDA GEMENT OF PATIENT CARE PER NURSING PROTOCOL Performed By: #### L 501.080 ####[facility] [address] [place], [address] FINGERSTICK GLU 186 mg/dL High 74-106 [facility] Comment on above: Result Comment: WILDA GEMENT OF PATIENT CARE PER NURSING PROTOCOL Performed By: #### L 501.080 ####[facility] [address] [place], [address] CBC W/Diff, Automatedon 08- Absolute Lymph 1.43 X10 3/uL Normal 0.83-4.51 [facility] Comment on above: Performed By: #### L 100.0100, L300.4310, L300.3900, L503.7505, L500.2500, L501.4021 ####[facility] [address] [place], [address] Absolute Neut 11.7 X10 3/uL High 2.0-7.7 [facility] Comment on above: Performed By: #### L 100.0100, L300.4310, L300.3900, L503.7505, L500.2500, L501.4021 ####[facility] [address] [place], [address] Basophils/100 WBC (Bld) 0.2 % Normal 0-1 [facility] Comment on above: Performed By: #### L 100.0100, L300.4310, L300.3900, L503.7505, L500.2500, L501.4021 ####[facility] [address] [place], [address] Eosinophils/100 WBC (Bld) 0.1 % Normal 0-5 [facility] Comment on above: Performed By: #### L 100.0100, L300.4310, L300.3900, L503.7505, L500.2500, L501.4021 ####[facility] [address] [place], [address] Erythrocyte distribution width (RBC) [Ratio] 13.4 % Normal 11.6-14.6 [facility] Comment on above: Performed By: #### L 100.0100, L300.4310, L300.3900, L503.7505, L500.2500, L501.4021 ####[facility] [address] [place], [address] Hematocrit (Bld) [Volume fraction] 40.2 % Normal 40-54 [facility] Comment on above: Performed By: #### L 100.0100, L300.4310, L300.3900, L503.7505, L500.2500, L501.4021 ####[facility] [address] [place], [address] Hemoglobin (Bld) [Mass/Vol] 13.7 g/dL Normal 13.0-16.5 [facility] Comment on above: Performed By: #### L 100.0100, L300.4310, L300.3900, L503.7505, L500.2500, L501.4021 ####[facility] [address] [place], [address] IG% 0.800 Normal 0.0-0.9 [facility] Comment on above: Result Comment: IG% - Immature Granulocytes (promyelocytes, myelocytes andmetamyelocytes) > 1% indicates that a LEFT SHIFT is Present. Performed By: #### L 100.0100, L300.4310, L300.3900, L503.7505, L500.2500, L501.4021 ####[facility] [address] [place], [address] Lymphocytes/100 WBC (Bld) 9.7 % Low 19-41 [facility] Comment on above: Performed By: #### L 100.0100, L300.4310, L300.3900, L503.7505, L500.2500, L501.4021 ####[facility] [address] [place], [address] MCH (RBC) [Entitic mass] 29.0 pg Normal 27.0-32.0 [facility] Comment on above: Performed By: #### L 100.0100, L300.4310, L300.3900, L503.7505, L500.2500, L501.4021 ####[facility] [address] [place], [address] MCHC (RBC) [Mass/Vol] 34.1 g/dL Normal 32-[address] [facility] Comment on above: Performed By: #### L 100.0100, L300.4310, L300.3900, L503.7505, L500.2500, L501.4021 ####[facility] [address] [place], [address] MCV (RBC) [Entitic vol] 85.2 fL Normal 80-94 [facility] Comment on above: Performed By: #### L 100.0100, L300.4310, L300.3900, L503.7505, L500.2500, L501.4021 ####[facility] [address] [place], [address] Monocytes/100 WBC (Bld) 9.9 % Normal 0-10 [facility] Comment on above: Performed By: #### L 100.0100, L300.4310, L300.3900, L503.7505, L500.2500, L501.4021 ####[facility] [address] [place], [address] Neutrophils/100 WBC (Bld) 79.3 % High 47-70 [facility] Comment on above: Performed By: #### L 100.0100, L300.4310, L300.3900, L503.7505, L500.2500, L501.4021 ####[facility] [address] [place], [address] Nucleated RBC (Bld) [#/Vol] 0 10*3/uL Normal 0-5 [facility] Comment on above: Performed By: #### L 100.0100, L300.4310, L300.3900, L503.7505, L500.2500, L501.4021 ####[facility] [address] [place], [address] Platelet mean volume (Bld) [Entitic vol] 13.4 fL High 6.2-12.0 [facility] Comment on above: Performed By: #### L 100.0100, L300.4310, L300.3900, L503.7505, L500.2500, L501.4021 ####[facility] [address] [place], [address] Platelets (Bld) [#/Vol] 242 10*3/uL Normal 150-450 [facility] Comment on above: Performed By: #### L 100.0100, L300.4310, L300.3900, L503.7505, L500.2500, L501.4021 ####[facility] [address] [place], [address] RBC (Bld) [#/Vol] 4.72 10*6/uL Normal 4.6-6.2 [facility] Comment on above: Performed By: #### L 100.0100, L300.4310, L300.3900, L503.7505, L500.2500, L501.4021 ####[facility] [address] [place], [address] RDW SD 41.6 fl Normal 35.1-43.9 [facility] Comment on above: Performed By: #### L 100.0100, L300.4310, L300.3900, L503.7505, L500.2500, L501.4021 ####[facility] [address] [place], [address] WBC (Bld) [#/Vol] 14.8 10*3/uL High 4.4-11.0 [facility] Comment on above: Performed By: #### L 100.0100, L300.4310, L300.3900, L503.7505, L500.2500, L501.4021 ####[facility] [address] [place], [address] Chest 1 View (Portable)on Chest 1 View (Portable) Normal [facility] Consultation - Cardiologyon 12-15-2024 Consultation - Cardiology Normal [facility] Echo, Limited Studyon 2024 Echo, Limited Study Normal [facility] Emergency Department Summary on 12-15-2024 Emergency Department Summary Normal [facility] H AND P Exam - Hospitaliston 12-15-2024 H&P Exam - Hospitalist Normal [facility] L501.4021on 12-15-2024 Trop T High Sen 1137 ng/L Invalid Interpretation Code <=22 [facility] Comment on above: Result Comment: Crit ical Result(s) Called at 1318: by: MONICA KOO.??Results read back by same. Performed By: #### L 100.0100, L300.4310, L300.3900, L503.7505, L500.2500, L501.4021 ####[facility] [address] [place], [place], [id number] Limited echocardiogram repor tOrdered By: Sunil Faye on 12-15-[address] [facility] Natriuretic peptide.B prohor efrem N-Terminal [Mass/volume] in Serum or PlasmaOrdered By: Payal Wledon on 12-15-2024 Natriuretic peptide.B prohormone N-Terminal [Mass/Vol] 1961 pg/mL High <1800 [facility] Partial Thromboplast Timeon 12-15-2024 aPTT Coag (Bld) [Time] 222.8 s Invalid Interpretation Code 24.1-36.2 [facility] Comment on above: Order Comment: CRITI KENNEY VALUE CALLED TO sandy archer12/15/24 Indra Huynh.RESULTS READ BACK BY same Performed By: #### L 100.0100, L300.4310, L300.3900, L503.7505, L500.2500, L501.4021 ####[facility] [address] [place], [place], [id number] Pro- Brain NATRIURETIC PEPTI Sharon 12-15-2024 Natriuretic peptide B (Bld) [Mass/Vol] 1961 pg/mL High <=1800 [facility] Comment on above: Result Comment: Hear t Failure Unlikely: < 300 pg/mLHeart Failure Likely< 50 Years: > 450 pg/mL50-75 Years: > 900 pg/mL>75 Years: > 1800 pg/mL Performed By: #### L 100.0100, L300.4310, L300.3900, L503.7505, L500.2500, L501.4021 ####[facility] [address] [place], [address] Prothrombin Time w/INRon INR Coag (PPP) [Relative time] 1.3 {INR} Normal [facility] Comment on above: Order Comment: CRITI KENNEY VALUE CALLED TO sandy archer12/15/24 Sasha5 Lexii Huynh.RESULTS READ BACK BY same Performed By: #### L 100.0100, L300.4310, L300.3900, L503.7505, L500.2500, L501.4021 ####[facility] [address] [place], [address] PT Coag (PPP) [Time] 16.8 s High 11.7-14.9 [facility] Comment on above: Order Comment: CRITI KENNEY VALUE CALLED TO sandy archer12/15/24 1355 Lexii Huynh.RESULTS READ BACK BY same Performed By: #### L 100.0100, L300.4310, L300.3900, L503.7505, L500.2500, L501.4021 ####[facility] [address] [place], [address] Prothrombin timeOrdered By: Payal Weldno on 12-15-2024 PT Coag (PPP) [Time] 16.8 s High 11.7-14.9 [facility] Troponin T HS 2 HRon 025 Trop T High Sen 1199 ng/L Invalid Interpretation Code <=22 [facility] Comment on above: Order Comment: WAS T O BE DRAWN AT 1411 STILL IN ER AT 1440 CALLED ER [facility] THEY'RE BUSY BUT SHELL ELT THE NURSE KNOW Result Comment: Crit ical Result(s) Called at 1718: by:MONICA ANTONIO. ??Results read back by same. Performed By: #### L 499.0042 ####[facility] [address] [place], [address] Troponin T HS 4 HRon 025 Trop T High Sen 1115 ng/L Invalid Interpretation Code <=22 [facility] Comment on above: Result Comment: Crit ical result called 12/15/2024-20:19 by Seymour Mcclure. Results read back by same.Hemolysis present, Results??could be affected.??Critical Result(s) Called at: by:??Results read back bysa. Performed By: #### L 499.0043 ####[facility] [address] [place], [address] Troponin T.cardiac [Mass/vol ume] in Serum or Plasma by High sensitivity methodOrdered By: Payal Weldon on 12-15-2024 Troponin T.cardiac High sensitivity method [Mass/Vol] 1115 ng/L High <22 [facility] Troponin T.cardiac High sensitivity method [Mass/Vol] 1199 ng/L High <22 [facility] Troponin T.cardiac High sensitivity method [Mass/Vol] 1137 ng/L High <22 [facility] Cardiac Cath Interventionon 12-14-2024 Cardiac Cath Intervention Normal [facility] Absolute lymphocyte countOrd ered By: Boyd Rock on 12-13-2024 Lymphocytes Auto (Unsp spec) [#/Vol] 1.28 10*3/uL 0.83-4.51 [facility] Anion gap in Serum or Plasma Ordered By: Boyd Rock on 12-13-2024 Anion gap [Moles/Vol] 21 mmol/L High 5-[address] [facility] Automated lymphocyte count a s percentage of total leukocytesOrdered By: Boyd Rock on 12-13-2024 Lymphocytes/100 WBC Auto (Unsp spec) 9.3 % Low 19-41 [facility] BUN/creatinine ratioOrdered By: Boyd Rock on 12-13-2024 Urea nitrogen/Creatinine [Mass ratio] 18.7 mg/mg 10-20 [facility] Basophil percentageOrdered B y: Boyd Rock on 12-13-2024 Basophils/100 WBC (Bld) 0.4 % 0-1 [facility] Bilirubin, totalOrdered By: Boyd Rock on 12-13-2024 Bilirubin [Mass/Vol] 1.60 mg/dL High 0.00-1.30 [facility] Carbon dioxide, total [Moles /volume] in Central venous bloodOrdered By: Boyd Rock on 12-13-2024 CO2 [Moles/Vol] 15.7 mmol/L Low 21.0-32.0 [facility] Chloride assayOrdered By: Susanna Rock on 12-13-2024 Chloride [Moles/Vol] 93 mmol/L Low 98-108 [facility] Eosinophil percentageOrdered By: Boyd Rock on 12-13-2024 Eosinophils/100 WBC (Bld) 1.5 % 0-5 [facility] Erythrocyte distribution wid th ratioOrdered By: Boyd Rock on 12-13-2024 Erythrocyte distribution width (RBC) [Ratio] 14.3 % 11.6-14.6 [facility] Erythrocyte distribution wid th standard deviationOrdered By: Boyd Rock on 12-13-2024 Erythrocyte distribution width (RBC) [Ratio] 45.2 fl High 35.1-43.9 [facility] Glomerular filtration rate ( GFR) estimation/1.73 sq m using serum, plasma, or whole bOrdered By: Boyd Rock on 12-13-2024 GFR/1.73 sq M.predicted among non-blacks MDRD (S/P/Bld) [Vol rate/Area] 19 mL/min/{1.73_m2} Low >60 [facility] Hematocrit Auto (Bld) [Volum e fraction]Ordered By: Boyd Rock on 12-13-2024 Hematocrit (Bld) [Volume fraction] 35.9 % Low 40-54 [facility] Hemoglobin measurementOrdere d By: Boyd Rock on 12-13-2024 Hemoglobin (Bld) [Mass/Vol] 11.8 g/dL Low 13.0-16.5 [facility] Immature granulocytes/100 WB C Auto (Bld)Ordered By: Boyd Rock 12-13-2024 Immature granulocytes/100 WBC (Bld) 0.700 % 0.0-0.9 [facility] MCV (mean corpuscular volume ) determinationOrdered By: Boyd Rock on 12-13-2024 MCV (RBC) [Entitic vol] 87.6 fL 80-94 [facility] Mean corpuscular hemoglobin (MCH) determinationOrdered By: Boyd Rock 12-13-2024 MCH (RBC) [Entitic mass] 28.8 pg 27.0-32.0 [facility] Monocyte percentageOrdered B y: Boyd Rock on 12-13-2024 Monocytes/100 WBC (Bld) 8.7 % 0-10 [facility] Neutrophil percentageOrdered By: Boyd Rock on 12-13-2024 Neutrophils/100 WBC (Bld) 79.4 % High 47-70 [facility] No Panel InformationOrdered By: Boyd Rock on 12-13-2024 29 U/L <38 [facility] Platelet countOrdered By: Susanna Rock on 12-13-2024 Platelets (Bld) [#/Vol] 199 10*3/uL 150-450 [facility] Potassium measurement (mass/ volume)Ordered By: Boyd Rock on 12-13-2024 Potassium (Unsp spec) [Mass/Vol] 5.1 mmol/L 3.3-5.1 [facility] RBC Auto (Bld) [#/Vol]Ordere d By: Boyd Rock on 12-13-2024 RBC (Bld) [#/Vol] 4.10 10*6/uL Low 4.6-6.2 [facility] Serum creatinine measurement (mass/volume)Ordered By: Boyd Rock on 12-13-2024 Creatinine [Mass/Vol] 3.18 mg/dL High 0.70-1.[address] [facility] Serum globulin measurementOr dered By: Boyd Rock on 12-13-2024 Globulin (S) [Mass/Vol] 4.2 g/dL 2.2-4.2 [facility] Serum glucose measurement (m ass/volume)Ordered By: Boyd Rock on 12-13-2024 Glucose [Mass/Vol] 289 mg/dL High 70-99 [facility] Serum or plasma alanine guerrero otransferase (ALT) measurementOrdered By: Boyd Rock 12-13-2024 ALT [Catalytic activity/Vol] 22 U/L <47 [facility] Serum or plasma albumin francine urement (mass/volume)Ordered By: Boyd Rock on 12-13-2024 Albumin [Mass/Vol] 4.1 g/dL 3.4-4.8 [facility] Serum or plasma albumin/glob ulin mass ratioOrdered By: Boyd Rock on 12-13-2024 Albumin/Globulin [Mass ratio] 1.0 {ratio} 0.9-2.4 [facility] Serum or plasma alkaline bell sphatase measurementOrdered By: Boyd Rock on 12-13-2024 ALP [Catalytic activity/Vol] 147 U/L High 40-129 [facility] Serum or plasma calcium francine urement (mass/volume)Ordered By: Boyd Rock on 12-13-2024 Calcium [Mass/Vol] 9.7 mg/dL 7.6-11.0 [facility] Serum or plasma urea nitroge n measurement (mass/volume)Ordered By: Boyd Rock on 12-13-2024 Urea nitrogen [Mass/Vol] 59 mg/dL High 4-19 [facility] Sodium levelOrdered By: Lupe gallowayluis m Shweta on 12-13-2024 Sodium [Moles/Vol] 130 mmol/L Low 133-145 [facility] T4 freeOrdered By: Boyd Rock on 12-13-2024 Free T4 [Mass/Vol] 1.40 ng/dL 0.76-1.46 [facility] Total proteinOrdered By: Anastacio lillianbrittni Rock on 12-13-2024 Protein [Mass/Vol] 8.3 g/dL 5.9-8.4 [facility] White blood cell (WBC) count Ordered By: Boyd Rock on 12-13-2024 WBC (Bld) [#/Vol] 13.7 10*3/uL High 4.4-11.0 [facility] Anion gap in Serum or Plasma Ordered By: Gustabo Pérez on 12-12-2024 Anion gap [Moles/Vol] 17 mmol/L High 5-[address] [facility] BUN/creatinine ratioOrdered By: Gustabo Pérez on 12-12-2024 Urea nitrogen/Creatinine [Mass ratio] 17.9 mg/mg - [facility] Basic Metabolic Profile (BMP )on 12-12-2024 BUN/CRE 17.9 RATIO Normal 02-19 [facility] Comment on above: Performed By: #### L 500.2500 ####[facility] [address] [place], [address] Calcium [Mass/Vol] 9.6 mg/dL Normal 7.6-11.0 [facility] Comment on above: Performed By: #### L 500.2500 ####[facility] [address] [place], [address] Chloride [Moles/Vol] 93 mmol/L Low 98-108 [facility] Comment on above: Performed By: #### L 500.2500 ####[facility] [address] [place], [address] CO2 [Moles/Vol] 18.2 mmol/L Low 21.0-32.0 [facility] Comment on above: Performed By: #### L 500.2500 ####[facility] [address] [place], [address] Creatinine [Mass/Vol] 3.15 mg/dL High 0.70-1.[address] [facility] Comment on above: Performed By: #### L 500.2500 ####[facility] [address] [place], [address] GAP 17 High 5-15 [facility] Comment on above: Performed By: #### L 500.2500 ####[facility] [address] [place], [address] GFR/1.73 sq M.predicted among non-blacks MDRD (S/P/Bld) [Vol rate/Area] 19 mL/min/{1.73_m2} Low >60 [facility] Comment on above: Result Comment: mL/m in/1.73m2 CKD-EPI Creatinine Equation (2020) Performed By: #### L 500.2500 ####[facility] [address] [place], [address] Glucose [Mass/Vol] 289 mg/dL High 70-99 [facility] Comment on above: Performed By: #### L 500.2500 ####[facility] [address] [place], [address] Potassium [Moles/Vol] 5.0 mmol/L Normal 3.3-5.[address] [facility] Comment on above: Result Comment: Hemo lysis present, Results??could be affected.?? Performed By: #### L 500.2500 ####[facility] [address] [place], [address] Sodium [Moles/Vol] 128 mmol/L Low 133-145 [facility] Comment on above: Performed By: #### L 500.2500 ####[facility] [address] [place], [address] Urea nitrogen [Mass/Vol] 56 mg/dL High 4-19 [facility] Comment on above: Performed By: #### L 500.2500 ####[facility] [address] [place], [address] Carbon dioxide, total [Moles /volume] in Central venous bloodOrdered By: Gustabo Pérez on 12-12-2024 CO2 [Moles/Vol] 18.2 mmol/L Low 21.0-32.0 [facility] Cardiology Visit Reporton Cardiology Visit Report Normal [facility] Chloride assayOrdered By: Lydia Pérez on 12-12-2024 Chloride [Moles/Vol] 93 mmol/L Low 98-108 [facility] Glomerular filtration rate ( GFR) estimation/1.73 sq m using serum, plasma, or whole bOrdered By: Gustabo Pérez on 12-12-2024 GFR/1.73 sq M.predicted among non-blacks MDRD (S/P/Bld) [Vol rate/Area] 19 mL/min/{1.73_m2} Low >60 [facility] Potassium measurement (mass/ volume)Ordered By: Gustabo Pérez on 12-12-2024 Potassium (Unsp spec) [Mass/Vol] 5.0 mmol/L 3.3-5.1 [facility] Serum creatinine measurement (mass/volume)Ordered By: Gustabo Pérez on 12-12-2024 Creatinine [Mass/Vol] 3.15 mg/dL High 0.70-1.[address] [facility] Serum glucose measurement (m ass/volume)Ordered By: Gustabo Pérez on 12-12-2024 Glucose [Mass/Vol] 289 mg/dL High 70-99 [facility] Serum or plasma calcium francine urement (mass/volume)Ordered By: Gustabo Pérez on 12-12-2024 Calcium [Mass/Vol] 9.6 mg/dL 7.6-11.0 [facility] Serum or plasma urea nitroge n measurement (mass/volume)Ordered By: Gustabo Pérez on 12-12-2024 Urea nitrogen [Mass/Vol] 56 mg/dL High 4-19 [facility] Sodium levelOrdered By: Gustabo Péerz on 12-12-2024 Sodium [Moles/Vol] 128 mmol/L Low 133-145 [facility] Cardiac Cath Interventionon 12-11-2024 Cardiac Cath Intervention Normal [facility] Absolute lymphocyte countOrd ered By: Shaan aSntos on 12-08-2024 Lymphocytes Auto (Unsp spec) [#/Vol] 1.20 10*3/uL 0.83-4.51 [facility] Anion gap in Serum or Plasma Ordered By: Shaan Santos on 12-08-2024 Anion gap [Moles/Vol] 18 mmol/L High 5-[address] [facility] Automated lymphocyte count a s percentage of total leukocytesOrdered By: Shaan Santos on 12-08-2024 Lymphocytes/100 WBC Auto (Unsp spec) 11.4 % Low 19-41 [facility] BUN/creatinine ratioOrdered By: Shaan Santos on 12-08-2024 Urea nitrogen/Creatinine [Mass ratio] 15.6 mg/mg 10-20 [facility] Basic Metabolic Profile (BMP )on 12-08-2024 BUN/CRE 15.6 RATIO Normal - [facility] Comment on above: Performed By: #### L 100.0100, L500.2500 ####[facility] [address] [place], [place], [id number] Calcium [Mass/Vol] 9.6 mg/dL Normal 7.6-11.0 [facility] Comment on above: Performed By: #### L 100.0100, L500.2500 ####[facility] [address] [place], [address] Chloride [Moles/Vol] 95 mmol/L Low 98-108 [facility] Comment on above: Performed By: #### L 100.0100, L500.2500 ####[facility] [id number] [place], [address] CO2 [Moles/Vol] 21.2 mmol/L Normal 21.0-32.0 [facility] Comment on above: Performed By: #### L 100.0100, L500.2500 ####[facility] [address] [place], [address] Creatinine [Mass/Vol] 2.84 mg/dL High 0.70-1.[address] [facility] Comment on above: Performed By: #### L 100.0100, L500.2500 ####[facility] [id number] [place], [address] ECRCL 24.45 ml/min Low 50-250 [facility] Comment on above: Performed By: #### L 100.0100, L500.2500 ####[facility] [address] [place], [address] GAP 18 High 5-15 [facility] Comment on above: Performed By: #### L 100.0100, L500.2500 ####[facility] [address] [place], [address] GFR/1.73 sq M.predicted among non-blacks MDRD (S/P/Bld) [Vol rate/Area] 22 mL/min/{1.73_m2} Low >60 [facility] Comment on above: Result Comment: mL/m in/1.73m2 CKD-EPI Creatinine Equation (2020) Performed By: #### L 100.0100, L500.2500 ####[facility] [address] [place], [address] Glucose [Mass/Vol] 178 mg/dL High 70-99 [facility] Comment on above: Performed By: #### L 100.0100, L500.2500 ####[facility] [address] [place], [address] Potassium [Moles/Vol] 3.4 mmol/L Normal 3.3-5.[address] [facility] Comment on above: Performed By: #### L 100.0100, L500.2500 ####[facility] [address] [place], [address] Sodium [Moles/Vol] 134 mmol/L Normal 133-145 [facility] Comment on above: Performed By: #### L 100.0100, L500.2500 ####[facility] [address] [place], [address] Urea nitrogen [Mass/Vol] 44 mg/dL High 4-19 [facility] Comment on above: Performed By: #### L 100.0100, L500.2500 ####[facility] [address] [place], [address] BUN Normal 4-19 [facility] Comment on above: Result Comment: Canc elled via OM: Order cancelled - Patient discharged Performed By: #### L 500.2500, L100.0100 ####[facility] [address] [place], [address] BUN/CRE Normal 10-20 [facility] Comment on above: Result Comment: Canc elled via OM: Order cancelled - Patient discharged Performed By: #### L 500.2500, L100.0100 ####[facility] [address] [place], [address] Calcium Normal 7.6-11.0 [facility] Comment on above: Result Comment: Canc elled via OM: Order cancelled - Patient discharged Performed By: #### L 500.2500, L100.0100 ####[facility] [address] [place] [place], [address] CL Normal 98-108 [facility] Comment on above: Result Comment: Canc elled via OM: Order cancelled - Patient discharged Performed By: #### L 500.2500, L100.0100 ####[facility] [address] [place] [place], [address] CO2 Normal 21.0-32.0 [facility] Comment on above: Result Comment: Canc elled via OM: Order cancelled - Patient discharged Performed By: #### L 500.2500, L100.0100 ####[facility] [address] [place], [address] CREAT,SERUM Normal 0.70-1.20 [facility] Comment on above: Result Comment: Canc elled via OM: Order cancelled - Patient discharged Performed By: #### L 500.2500, L100.0100 ####[facility] [address] [place], [address] eGFR Normal >60 [facility] Comment on above: Result Comment: Canc elled via OM: Order cancelled - Patient discharged Performed By: #### L 500.2500, L100.0100 ####[facility] [address] [place] [place], [address] GAP Normal 5-15 [facility] Comment on above: Result Comment: Canc elled via OM: Order cancelled - Patient discharged Performed By: #### L 500.2500, L100.0100 ####[facility] [address] [place], [address] GLU Normal 70-99 [facility] Comment on above: Result Comment: Canc elled via OM: Order cancelled - Patient discharged Performed By: #### L 500.2500, L100.0100 ####[facility] [address] [place], [address] Potassium Normal 3.3-5.1 [facility] Comment on above: Result Comment: Canc elled via OM: Order cancelled - Patient discharged Performed By: #### L 500.2500, L100.0100 ####[facility] [address] [place], [address] Basic Metabolic Profile (BMP) Normal 133-145 [facility] Comment on above: Result Comment: Canc elled via OM: Order cancelled - Patient discharged Performed By: #### L 500.2500, L100.0100 ####[facility] [address] [place], [address] Basophil percentageOrdered B y: Shaan Santos on 12-08-2024 Basophils/100 WBC (Bld) 0.5 % 0-1 [facility] Bedside Glucoseon 12-08-2024 FINGERSTICK GLU 249 mg/dL High 74-106 [facility] Comment on above: Result Comment: WILDA GEMENT OF PATIENT CARE PER NURSING PROTOCOL Performed By: #### L 501.080 ####[facility] [address] [place], [address] FINGERSTICK GLU 185 mg/dL High 74-106 [facility] Comment on above: Result Comment: WILDA GEMENT OF PATIENT CARE PER NURSING PROTOCOL Performed By: #### L 501.080 ####[facility] [address] [place], [address] FINGERSTICK GLU 222 mg/dL High 74-106 [facility] Comment on above: Result Comment: WILDA GEMENT OF PATIENT CARE PER NURSING PROTOCOL Performed By: #### L 501.080 ####[facility] [address] [place], [address] CBC W/Diff, Automatedon 08 Absolute Lymph 1.20 X10 3/uL Normal 0.83-4.51 [facility] Comment on above: Performed By: #### L 100.0100, L500.2500 ####[facility] [address] [place], [address] Absolute Neut 7.8 X10 3/uL High 2.0-7.7 [facility] Comment on above: Performed By: #### L 100.0100, L500.2500 ####[facility] [address] [place], [address] Basophils/100 WBC (Bld) 0.5 % Normal 0-1 [facility] Comment on above: Performed By: #### L 100.0100, L500.2500 ####[facility] [address] [place], [address] Eosinophils/100 WBC (Bld) 1.0 % Normal 0-5 [facility] Comment on above: Performed By: #### L 100.0100, L500.2500 ####[facility] [address] [place], [address] Erythrocyte distribution width (RBC) [Ratio] 13.4 % Normal 11.6-14.6 [facility] Comment on above: Performed By: #### L 100.0100, L500.2500 ####[facility] [address] [place], [address] Hematocrit (Bld) [Volume fraction] 39.2 % Low 40-54 [facility] Comment on above: Performed By: #### L 100.0100, L500.2500 ####[facility] [address] [place], [address] Hemoglobin (Bld) [Mass/Vol] 12.9 g/dL Low 13.0-16.5 [facility] Comment on above: Performed By: #### L 100.0100, L500.2500 ####[facility] [address] [place], [address] IG% 0.900 Normal 0.0-0.9 [facility] Comment on above: Result Comment: IG% - Immature Granulocytes (promyelocytes, myelocytes andmetamyelocytes) > 1% indicates that a LEFT SHIFT is Present. Performed By: #### L 100.0100, L500.2500 ####[facility] [address] [place], [address] Lymphocytes/100 WBC (Bld) 11.4 % Low 19-41 [facility] Comment on above: Performed By: #### L 100.0100, L500.2500 ####[facility] [address] [place], [address] MCH (RBC) [Entitic mass] 28.9 pg Normal 27.0-32.0 [facility] Comment on above: Performed By: #### L 100.0100, L500.2500 ####[facility] [address] [place], [address] MCHC (RBC) [Mass/Vol] 32.9 g/dL Normal 32-[address] [facility] Comment on above: Performed By: #### L 100.0100, L500.2500 ####[facility] [address] [place], [address] MCV (RBC) [Entitic vol] 87.7 fL Normal 80-94 [facility] Comment on above: Performed By: #### L 100.0100, L500.2500 ####[facility] [address] [place], [address] Monocytes/100 WBC (Bld) 12.1 % High 0-10 [facility] Comment on above: Performed By: #### L 100.0100, L500.2500 ####[facility] [address] [place], [address] Neutrophils/100 WBC (Bld) 74.1 % High 47-70 [facility] Comment on above: Performed By: #### L 100.0100, L500.2500 ####[facility] [address] [place], [address] Nucleated RBC (Bld) [#/Vol] 0 10*3/uL Normal 0-5 [facility] Comment on above: Performed By: #### L 100.0100, L500.2500 ####[facility] [address] [place], [address] Platelet mean volume (Bld) [Entitic vol] 13.2 fL High 6.2-12.0 [facility] Comment on above: Performed By: #### L 100.0100, L500.2500 ####[facility] [address] [place], [address] Platelets (Bld) [#/Vol] 178 10*3/uL Normal 150-450 [facility] Comment on above: Performed By: #### L 100.0100, L500.2500 ####[facility] [address] [place], [address] RBC (Bld) [#/Vol] 4.47 10*6/uL Low 4.6-6.2 [facility] Comment on above: Performed By: #### L 100.0100, L500.2500 ####[facility] [address] [place], [address] RDW SD 42.8 fl Normal 35.1-43.9 [facility] Comment on above: Performed By: #### L 100.0100, L500.2500 ####[facility] [address] [place], [address] WBC (Bld) [#/Vol] 10.5 10*3/uL Normal 4.4-11.0 [facility] Comment on above: Performed By: #### L 100.0100, L500.2500 ####[facility] [address] [place], [address] Absolute Neut Normal 2.0-7.7 [facility] Comment on above: Result Comment: Canc elled via OM: Order cancelled - Patient discharged Performed By: #### L 500.2500, L100.0100 ####[facility] [address] [place], [address] HCT Normal 40-54 [facility] Comment on above: Result Comment: Canc elled via OM: Order cancelled - Patient discharged Performed By: #### L 500.2500, L100.0100 ####[facility] [address] [place], [address] HGB Normal 13.0-16.5 [facility] Comment on above: Result Comment: Canc elled via OM: Order cancelled - Patient discharged Performed By: #### L 500.2500, L100.0100 ####[facility] [address] [place], [address] MCH Normal 27.0-32.0 [facility] Comment on above: Result Comment: Canc elled via OM: Order cancelled - Patient discharged Performed By: #### L 500.2500, L100.0100 ####[facility] [address] [place], [address] MCHC Normal 32-36 [facility] Comment on above: Result Comment: Canc elled via OM: Order cancelled - Patient discharged Performed By: #### L 500.2500, L100.0100 ####[facility] [address] [place], [address] MCV Normal 80-94 [facility] Comment on above: Result Comment: Canc elled via OM: Order cancelled - Patient discharged Performed By: #### L 500.2500, L100.0100 ####[facility] [address] [place], [address] NEUT% Normal 47-70 [facility] Comment on above: Result Comment: Canc elled via OM: Order cancelled - Patient discharged Performed By: #### L 500.2500, L100.0100 ####[facility] [address] [place], [address] PLT Normal 150-450 [facility] Comment on above: Result Comment: Canc elled via OM: Order cancelled - Patient discharged Performed By: #### L 500.2500, L100.0100 ####[facility] [address] [place], [address] RBC Normal 4.6-6.2 [facility] Comment on above: Result Comment: Canc elled via OM: Order cancelled - Patient discharged Performed By: #### L 500.2500, L100.0100 ####[facility] [address] [place], [address] RDW CV Normal 11.6-14.6 [facility] Comment on above: Result Comment: Canc elled via OM: Order cancelled - Patient discharged Performed By: #### L 500.2500, L100.0100 ####[facility] [address] [place], [address] RDW SD Normal 35.1-43.9 [facility] Comment on above: Result Comment: Canc elled via OM: Order cancelled - Patient discharged Performed By: #### L 500.2500, L100.0100 ####[facility] [address] [place], [address] WBC Normal 4.4-11.0 [facility] Comment on above: Result Comment: Canc elled via OM: Order cancelled - Patient discharged Performed By: #### L 500.2500, L100.0100 ####[facility] [address] [place], [address] Carbon dioxide, total [Moles /volume] in Central venous bloodOrdered By: Shaan Jopperi on 12-08-2024 CO2 [Moles/Vol] 21.2 mmol/L 21.0-32.0 [facility] Chloride assayOrdered By: Charlie Santos on 12-08-2024 Chloride [Moles/Vol] 95 mmol/L Low 98-108 [facility] Eosinophil percentageOrdered By: Shaan Santos on 12-08-2024 Eosinophils/100 WBC (Bld) 1.0 % 0-5 [facility] Erythrocyte distribution wid th ratioOrdered By: Shaan Santos on 12-08-2024 Erythrocyte distribution width (RBC) [Ratio] 13.4 % 11.6-14.6 [facility] Erythrocyte distribution wid th standard deviationOrdered By: Shaan Santos on 12-08-2024 Erythrocyte distribution width (RBC) [Ratio] 42.8 fl 35.1-43.9 [facility] Glomerular filtration rate ( GFR) estimation/1.73 sq m using serum, plasma, or whole bOrdered By: Shaan Santos on 12-08-2024 GFR/1.73 sq M.predicted among non-blacks MDRD (S/P/Bld) [Vol rate/Area] 22 mL/min/{1.73_m2} Low >60 [facility] deOrdered By: Alex Sanon on 12-08-2024 Glucose [Mass/Vol] 249 mg/dL High 74-106 [facility] Hematocrit Auto (Bld) [Volum e fraction]Ordered By: Shaan Santos on 12-08-2024 Hematocrit (Bld) [Volume fraction] 39.2 % Low 40-54 [facility] Hemoglobin measurementOrdere d By: Shaan Santos on 12-08-2024 Hemoglobin (Bld) [Mass/Vol] 12.9 g/dL Low 13.0-16.5 [facility] Immature granulocytes/100 WB C Auto (Bld)Ordered By: Shaan Santos on 12-08-2024 Immature granulocytes/100 WBC (Bld) 0.900 % 0.0-0.9 [facility] MCV (mean corpuscular volume ) determinationOrdered By: Shaan Santos on 12-08-2024 MCV (RBC) [Entitic vol] 87.7 fL 80-94 [facility] Mean corpuscular hemoglobin (MCH) determinationOrdered By: Shaan Santos on 12-08-2024 MCH (RBC) [Entitic mass] 28.9 pg 27.0-32.0 [facility] Monocyte percentageOrdered B y: Shaan Santos on 12-08-2024 Monocytes/100 WBC (Bld) 12.1 % High 0-10 [facility] Neutrophil percentageOrdered By: Shaan Santos on 12-08-2024 Neutrophils/100 WBC (Bld) 74.1 % High 47-70 [facility] Platelet countOrdered By: Charlie Santos on 12-08-2024 Platelets (Bld) [#/Vol] 178 10*3/uL 150-450 [facility] Potassium measurement (mass/ volume)Ordered By: Shaan Santos on 12-08-2024 Potassium (Unsp spec) [Mass/Vol] 3.4 mmol/L 3.3-5.1 [facility] RBC Auto (Bld) [#/Vol]Ordere d By: Shaan Santos on 12-08-2024 RBC (Bld) [#/Vol] 4.47 10*6/uL Low 4.6-6.2 [facility] Serum creatinine measurement (mass/volume)Ordered By: Shaan Santos on 12-08-2024 Creatinine [Mass/Vol] 2.84 mg/dL High 0.70-1.[address] [facility] Serum glucose measurement (m ass/volume)Ordered By: Shaan Santos on 12-08-2024 Glucose [Mass/Vol] 178 mg/dL High 70-99 [facility] Serum or plasma calcium francine urement (mass/volume)Ordered By: Shaan Santos on 12-08-2024 Calcium [Mass/Vol] 9.6 mg/dL 7.6-11.0 [facility] Serum or plasma urea nitroge n measurement (mass/volume)Ordered By: Shaan Santos on 12-08-2024 Urea nitrogen [Mass/Vol] 44 mg/dL High 4-19 [facility] Sodium levelOrdered By: Shaan Santos on 12-08-2024 Sodium [Moles/Vol] 134 mmol/L 133-145 [facility] White blood cell (WBC) count Ordered By: Shaan Santos on 12-08-2024 WBC (Bld) [#/Vol] 10.5 10*3/uL 4.4-11.0 [facility] 12 Lead EKGon 12-07-[address] [facility] Absolute lymphocyte countOrd ered By: Juli German on 12-07-2024 Lymphocytes Auto (Unsp spec) [#/Vol] 0.94 10*3/uL 0.83-4.51 [facility] Absolute lymphocyte countOrd ered By: Boyd Rock on 12-07-2024 Lymphocytes Auto (Unsp spec) [#/Vol] 1.19 10*3/uL 0.83-4.51 [facility] Anion gap in Serum or Plasma Ordered By: Juli German on 12-07-2024 Anion gap [Moles/Vol] 18 mmol/L High - [facility] Anion gap in Serum or Plasma Ordered By: Boyd Rock on 12-07-2024 Anion gap [Moles/Vol] 16 mmol/L High [address] [facility] Automated lymphocyte count a s percentage of total leukocytesOrdered By: Juli German on 12-07-2024 Lymphocytes/100 WBC Auto (Unsp spec) 7.9 % Low [facility] Automated lymphocyte count a s percentage of total leukocytesOrdered By: Boyd Rock on 12-07-2024 Lymphocytes/100 WBC Auto (Unsp spec) 11.4 % Low - [facility] BUN/creatinine ratioOrdered By: Juli German on 12-07-2024 Urea nitrogen/Creatinine [Mass ratio] 14.5 mg/mg 02-19 [facility] BUN/creatinine ratioOrdered By: Boyd Rock on 12-07-2024 Urea nitrogen/Creatinine [Mass ratio] 15.3 mg/mg 02-19 [facility] Basic Metabolic Profile (BMP )on 12-07-2024 BUN/CRE 14.5 RATIO Normal 02-19 [facility] Comment on above: Performed By: #### L 100.0100, L501.4021, L500.2500 ####[facility] [address] [place], [address] Calcium [Mass/Vol] 9.5 mg/dL Normal 7.6-11.0 [facility] Comment on above: Performed By: #### L 100.0100, L501.4021, L500.2500 ####[facility] [address] [place], [address] Chloride [Moles/Vol] 94 mmol/L Low 98-108 [facility] Comment on above: Performed By: #### L 100.0100, L501.4021, L500.2500 ####[facility] [address] [place], [address] CO2 [Moles/Vol] 20.9 mmol/L Low 21.0-32.0 [facility] Comment on above: Performed By: #### L 100.0100, L501.4021, L500.2500 ####[facility] [address] [place], [address] Creatinine [Mass/Vol] 2.76 mg/dL High 0.70-1.[address] [facility] Comment on above: Performed By: #### L 100.0100, L501.4021, L500.2500 ####[facility] [address] [place], [address] ECRCL 25.62 ml/min Low 50-250 [facility] Comment on above: Performed By: #### L 100.0100, L501.4021, L500.2500 ####[facility] [address] [place], [address] GAP 18 High 5-15 [facility] Comment on above: Performed By: #### L 100.0100, L501.4021, L500.2500 ####[facility] [address] [place], [address] GFR/1.73 sq M.predicted among non-blacks MDRD (S/P/Bld) [Vol rate/Area] 23 mL/min/{1.73_m2} Low >60 [facility] Comment on above: Result Comment: mL/m in/1.73m2 CKD-EPI Creatinine Equation (2020) Performed By: #### L 100.0100, L501.4021, L500.2500 ####[facility] [address] [place], [address] Glucose [Mass/Vol] 209 mg/dL High 70-99 [facility] Comment on above: Performed By: #### L 100.0100, L501.4021, L500.2500 ####[facility] [address] [place], [address] Potassium [Moles/Vol] 4.1 mmol/L Normal 3.3-5.[address] [facility] Comment on above: Performed By: #### L 100.0100, L501.4021, L500.2500 ####[facility] [address] [place], [address] Sodium [Moles/Vol] 132 mmol/L Low 133-145 [facility] Comment on above: Performed By: #### L 100.0100, L501.4021, L500.2500 ####[facility] [address] [place], [address] Urea nitrogen [Mass/Vol] 40 mg/dL High 4-19 [facility] Comment on above: Performed By: #### L 100.0100, L501.4021, L500.2500 ####[facility] [address] [place], [address] BUN Normal 4-19 [facility] Comment on above: Result Comment: Canc elled via OM: Order cancelled - Patient discharged Performed By: #### L 500.2500, L100.0100 ####[facility] [address] [place], [address] BUN/CRE Normal 10-20 [facility] Comment on above: Result Comment: Canc elled via OM: Order cancelled - Patient discharged Performed By: #### L 500.2500, L100.0100 ####[facility] [address] [place], [address] Calcium Normal 7.6-11.0 [facility] Comment on above: Result Comment: Canc elled via OM: Order cancelled - Patient discharged Performed By: #### L 500.2500, L100.0100 ####[facility] [address] [place] [place], [address] CL Normal 98-108 [facility] Comment on above: Result Comment: Canc elled via OM: Order cancelled - Patient discharged Performed By: #### L 500.2500, L100.0100 ####[facility] [address] [place], [address] CO2 Normal 21.0-32.0 [facility] Comment on above: Result Comment: Canc elled via OM: Order cancelled - Patient discharged Performed By: #### L 500.2500, L100.0100 ####[facility] [address] [place], [address] CREAT,SERUM Normal 0.70-1.20 [facility] Comment on above: Result Comment: Canc elled via OM: Order cancelled - Patient discharged Performed By: #### L 500.2500, L100.0100 ####[facility] [address] [place], [address] eGFR Normal >60 [facility] Comment on above: Result Comment: Canc elled via OM: Order cancelled - Patient discharged Performed By: #### L 500.2500, L100.0100 ####[facility] [address] [place], [address] GAP Normal 5-15 [facility] Comment on above: Result Comment: Canc elled via OM: Order cancelled - Patient discharged Performed By: #### L 500.2500, L100.0100 ####[facility] [address] [place], [address] GLU Normal 70-99 [facility] Comment on above: Result Comment: Canc elled via OM: Order cancelled - Patient discharged Performed By: #### L 500.2500, L100.0100 ####[facility] [address] [place], [address] Potassium Normal 3.3-5.1 [facility] Comment on above: Result Comment: Canc elled via OM: Order cancelled - Patient discharged Performed By: #### L 500.2500, L100.0100 ####[facility] [address] [place], [address] Basic Metabolic Profile (BMP) Normal 133-145 [facility] Comment on above: Result Comment: Canc elled via OM: Order cancelled - Patient discharged Performed By: #### L 500.2500, L100.0100 ####[facility] [address] [place], [address] Basophil percentageOrdered B y: Juli German on 12-07-2024 Basophils/100 WBC (Bld) 0.3 % 0-1 [facility] Basophil percentageOrdered B y: Boyd Rock on 12-07-2024 Basophils/100 WBC (Bld) 0.2 % 0-1 [facility] Bedside Glucoseon 12-07-2024 FINGERSTICK GLU 187 mg/dL High 74-106 [facility] Comment on above: Result Comment: WILDA BARROSO OF PATIENT CARE PER NURSING PROTOCOL Performed By: #### L 501.080 ####[facility] [address] [place], [address] Bilirubin, totalOrdered By: Boyd Rock on 12-07-2024 Bilirubin [Mass/Vol] 1.48 mg/dL High 0.00-1.30 [facility] CBC W/Diff, Automatedon Absolute Lymph 0.94 X10 3/uL Normal 0.83-4.51 [facility] Comment on above: Performed By: #### L 100.0100, L501.4021, L500.2500 ####[facility] [address] [place], [address] Absolute Neut 9.4 X10 3/uL High 2.0-7.7 [facility] Comment on above: Performed By: #### L 100.0100, L501.4021, L500.2500 ####[facility] [address] [place], [address] Basophils/100 WBC (Bld) 0.3 % Normal 0-1 [facility] Comment on above: Performed By: #### L 100.0100, L501.4021, L500.2500 ####[facility] [address] [place], [address] Eosinophils/100 WBC (Bld) 0.6 % Normal 0-5 [facility] Comment on above: Performed By: #### L 100.0100, L501.4021, L500.2500 ####[facility] [address] [place], [address] Erythrocyte distribution width (RBC) [Ratio] 13.4 % Normal 11.6-14.6 [facility] Comment on above: Performed By: #### L 100.0100, L501.4021, L500.2500 ####[facility] [address] [place], [address] Hematocrit (Bld) [Volume fraction] 39.1 % Low 40-54 [facility] Comment on above: Performed By: #### L 100.0100, L501.4021, L500.2500 ####[facility] [address] [place], [address] Hemoglobin (Bld) [Mass/Vol] 13.3 g/dL Normal 13.0-16.5 [facility] Comment on above: Performed By: #### L 100.0100, L501.4021, L500.2500 ####[facility] [address] [place], [address] IG% 0.700 Normal 0.0-0.9 [facility] Comment on above: Result Comment: IG% - Immature Granulocytes (promyelocytes, myelocytes andmetamyelocytes) > 1% indicates that a LEFT SHIFT is Present. Performed By: #### L 100.0100, L501.4021, L500.2500 ####[facility] [address] [place], [address] Lymphocytes/100 WBC (Bld) 7.9 % Low 19-41 [facility] Comment on above: Performed By: #### L 100.0100, L501.4021, L500.2500 ####[facility] [address] [place], [address] MCH (RBC) [Entitic mass] 29.3 pg Normal 27.0-32.0 [facility] Comment on above: Performed By: #### L 100.0100, L501.4021, L500.2500 ####[facility] [address] [place], [address] MCHC (RBC) [Mass/Vol] 34.0 g/dL Normal 32-[address] [facility] Comment on above: Performed By: #### L 100.0100, L501.4021, L500.2500 ####[facility] [address] [place], [address] MCV (RBC) [Entitic vol] 86.1 fL Normal 80-94 [facility] Comment on above: Performed By: #### L 100.0100, L501.4021, L500.2500 ####[facility] [address] [place], [address] Monocytes/100 WBC (Bld) 11.5 % High 0-10 [facility] Comment on above: Performed By: #### L 100.0100, L501.4021, L500.2500 ####[facility] [address] [place], [address] Neutrophils/100 WBC (Bld) 79.0 % High 47-70 [facility] Comment on above: Performed By: #### L 100.0100, L501.4021, L500.2500 ####[facility] [address] [place], [address] Nucleated RBC (Bld) [#/Vol] 0 10*3/uL Normal 0-5 [facility] Comment on above: Performed By: #### L 100.0100, L501.4021, L500.2500 ####[facility] [address] [place], [address] Platelet mean volume (Bld) [Entitic vol] 13.0 fL High 6.2-12.0 [facility] Comment on above: Performed By: #### L 100.0100, L501.4021, L500.2500 ####[facility] [address] [place], [address] Platelets (Bld) [#/Vol] 190 10*3/uL Normal 150-450 [facility] Comment on above: Performed By: #### L 100.0100, L501.4021, L500.2500 ####[facility] [address] [place], [address] RBC (Bld) [#/Vol] 4.54 10*6/uL Low 4.6-6.2 [facility] Comment on above: Performed By: #### L 100.0100, L501.4021, L500.2500 ####[facility] [address] [place], [address] RDW SD 41.4 fl Normal 35.1-43.9 [facility] Comment on above: Performed By: #### L 100.0100, L501.4021, L500.2500 ####[facility] [address] [place], [address] WBC (Bld) [#/Vol] 11.9 10*3/uL High 4.4-11.0 [facility] Comment on above: Performed By: #### L 100.0100, L501.4021, L500.2500 ####[facility] [address] [place], [address] Absolute Neut Normal 2.0-7.7 [facility] Comment on above: Result Comment: Canc elled via OM: Order cancelled - Patient discharged Performed By: #### L 500.2500, L100.0100 ####[facility] [address] [place], [address] HCT Normal 40-54 [facility] Comment on above: Result Comment: Canc elled via OM: Order cancelled - Patient discharged Performed By: #### L 500.2500, L100.0100 ####[facility] [address] [place], [address] HGB Normal 13.0-16.5 [facility] Comment on above: Result Comment: Canc elled via OM: Order cancelled - Patient discharged Performed By: #### L 500.2500, L100.0100 ####[facility] [address] [place], [address] MCH Normal 27.0-32.0 [facility] Comment on above: Result Comment: Canc elled via OM: Order cancelled - Patient discharged Performed By: #### L 500.2500, L100.0100 ####[facility] [address] [place], [address] MCHC Normal 32-36 [facility] Comment on above: Result Comment: Canc elled via OM: Order cancelled - Patient discharged Performed By: #### L 500.2500, L100.0100 ####[facility] [address] [place], [address] MCV Normal 80-94 [facility] Comment on above: Result Comment: Canc elled via OM: Order cancelled - Patient discharged Performed By: #### L 500.2500, L100.0100 ####[facility] [address] [place], [address] NEUT% Normal 47-70 [facility] Comment on above: Result Comment: Canc elled via OM: Order cancelled - Patient discharged Performed By: #### L 500.2500, L100.0100 ####[facility] [address] [place], [address] PLT Normal 150-450 [facility] Comment on above: Result Comment: Canc elled via OM: Order cancelled - Patient discharged Performed By: #### L 500.2500, L100.0100 ####[facility] [address] [place], [address] RBC Normal 4.6-6.2 [facility] Comment on above: Result Comment: Canc elled via OM: Order cancelled - Patient discharged Performed By: #### L 500.2500, L100.0100 ####[facility] [address] [place], [address] RDW CV Normal 11.6-14.6 [facility] Comment on above: Result Comment: Canc elled via OM: Order cancelled - Patient discharged Performed By: #### L 500.2500, L100.0100 ####[facility] [address] [place], [address] RDW SD Normal 35.1-43.9 [facility] Comment on above: Result Comment: Canc elled via OM: Order cancelled - Patient discharged Performed By: #### L 500.2500, L100.0100 ####[facility] [address] [place], [address] WBC Normal 4.4-11.0 [facility] Comment on above: Result Comment: Canc elled via OM: Order cancelled - Patient discharged Performed By: #### L 500.2500, L100.0100 ####[facility] [address] [place], [address] Calculated very low density lipoprotein (VLDL) cholesterol measurementOrdered By: Boyd Rock on 12-07-2024 Calculated very low density lipoprotein (VLDL) cholesterol measurement 54 mg/dL High 5-40 [facility] Carbon dioxide, total [Moles /volume] in Central venous bloodOrdered By: Juli German on 12-07-2024 CO2 [Moles/Vol] 20.9 mmol/L Low 21.0-32.0 [facility] Carbon dioxide, total [Moles /volume] in Central venous bloodOrdered By: Boyd Rock on 12-07-2024 CO2 [Moles/Vol] 23.3 mmol/L 21.0-32.0 [facility] Chest PA and Lateralon 12-07 Chest PA and Lateral Normal [facility] Chloride assayOrdered By: Miri German on 12-07-2024 Chloride [Moles/Vol] 94 mmol/L Low 98-108 [facility] Chloride assayOrdered By: Susanna Rock on 12-07-2024 Chloride [Moles/Vol] 96 mmol/L Low 98-108 [facility] D-Dimer Quantitative (DVT/PE )on 12-07-2024 D-DIMER QUANT 1.61 FEU/ug/m Invalid Interpretation Code 0.27-0.49 [facility] Comment on above: Result Comment: D-Di ajit ELEVATED (>0.49): Additional studies and clinicalassessments are indicated to conclude diagnosis of:Deep Vein Thrombosis (DVT) or Pulmonary Embolism (PE)CRITICAL VALUE CALLED TO MARIA DEL ROSARIO JOHNSON (ER)12/07/24 1442 Fletcher Cherry.RESULTS READ BACK BY SAME. Performed By: #### L 300.8000 ####[facility] [address] [place], [address] Emergency Department Summary on 12-07-2024 [address] Normal [facility] Eosinophil percentageOrdered By: Juli German on 12-07-2024 Eosinophils/100 WBC (Bld) 0.6 % 0-5 [facility] Eosinophil percentageOrdered By: Boyd Rock on 12-07-2024 Eosinophils/100 WBC (Bld) 1.3 % 0-5 [facility] Erythrocyte distribution wid th ratioOrdered By: Juli German on 12-07-2024 Erythrocyte distribution width (RBC) [Ratio] 13.4 % 11.6-14.6 [facility] Erythrocyte distribution wid th ratioOrdered By: Efandrés Videse on 12-07-2024 Erythrocyte distribution width (RBC) [Ratio] 13.6 % 11.6-14.6 [facility] Erythrocyte distribution wid th standard deviationOrdered By: Juli German on 12-07-2024 Erythrocyte distribution width (RBC) [Ratio] 41.4 fl 35.1-43.9 [facility] Erythrocyte distribution wid th standard deviationOrdered By: Boyd Rock on 12-07-2024 Erythrocyte distribution width (RBC) [Ratio] 43.8 fl 35.1-43.9 [facility] Glomerular filtration rate ( GFR) estimation/1.73 sq m using serum, plasma, or whole bOrdered By: Juli German on 12-07-2024 GFR/1.73 sq M.predicted among non-blacks MDRD (S/P/Bld) [Vol rate/Area] 23 mL/min/{1.73_m2} Low >60 [facility] Glomerular filtration rate ( GFR) estimation/1.73 sq m using serum, plasma, or whole bOrdered By: Boyd Rock on 08-07-2025 GFR/1.73 sq M.predicted among non-blacks MDRD (S/P/Bld) [Vol rate/Area] 25 mL/min/{1.73_m2} Low >60 [facility] H AND P Exam - Hospitaliston 12-07-2024 H&P Exam - Hospitalist Normal [facility] Hematocrit Auto (Bld) [Volum e fraction]Ordered By: Juli German on 12-07-2024 Hematocrit (Bld) [Volume fraction] 39.1 % Low 40-54 [facility] Hematocrit Auto (Bld) [Volum e fraction]Ordered By: Boyd Rock on 12-07-2024 Hematocrit (Bld) [Volume fraction] 37.8 % Low 40-54 [facility] Hemoglobin measurementOrdere d By: Juli German on 12-07-2024 Hemoglobin (Bld) [Mass/Vol] 13.3 g/dL 13.0-16.5 [facility] Hemoglobin measurementOrdere d By: Boyd Rock on 12-07-2024 Hemoglobin (Bld) [Mass/Vol] 12.4 g/dL Low 13.0-16.5 [facility] Immature granulocytes/100 WB C Auto (Bld)Ordered By: Juli German on 12-07-2024 Immature granulocytes/100 WBC (Bld) 0.700 % 0.0-0.9 [facility] Immature granulocytes/100 WB C Auto (Bld)Ordered By: Boyd Rock on 12-07-2024 Immature granulocytes/100 WBC (Bld) 0.600 % 0.0-0.9 [facility] L501.4021on 12-07-2024 Trop T High Sen 7122 ng/L Invalid Interpretation Code <=22 [facility] Comment on above: Result Comment: Crit ical Result(s) Called at 1153: by:?? MONICA RODRIGUEZ. Results read back by same. Performed By: #### L 100.0100, L501.4021, L500.2500 ####[facility] [address] [place], [place], [id number] LDL calc ser/plasOrdered By: Boyd Rock on 12-07-2024 Cholesterol in LDL [Mass/Vol] 65 mg/dL [facility] Lung Scan Vent/Perfon 2024 Lung Scan Vent/Perf Normal [facility] MCV (mean corpuscular volume ) determinationOrdered By: Juli German on 12-07-2024 MCV (RBC) [Entitic vol] 86.1 fL 80-94 [facility] MCV (mean corpuscular volume ) determinationOrdered By: Boyd Rock on 12-07-2024 MCV (RBC) [Entitic vol] 87.9 fL 80-94 [facility] Magnesiumon 12-07-2024 Magnesium [Mass/Vol] 2.4 mg/dL High 1.5-2.2 [facility] Comment on above: Performed By: #### L 501.5200 ####[facility] [address] [place], [place], [id number] Magnesium measurement (mass/ volume)Ordered By: Juli German on 12-07-2024 Magnesium (Unsp spec) [Mass/Vol] 2.4 mg/dL High 1.5-2.2 [facility] Mean corpuscular hemoglobin (MCH) determinationOrdered By: Juli German on 12-07-2024 MCH (RBC) [Entitic mass] 29.3 pg 27.0-32.0 [facility] Mean corpuscular hemoglobin (MCH) determinationOrdered By: Boyd Rock on 12-07-2024 MCH (RBC) [Entitic mass] 28.8 pg 27.0-32.0 [facility] Monocyte percentageOrdered B y: Juli German on 12-07-2024 Monocytes/100 WBC (Bld) 11.5 % High 0-10 [facility] Monocyte percentageOrdered B y: Boyd Rock on 12-07-2024 Monocytes/100 WBC (Bld) 11.7 % High 0-10 [facility] Natriuretic peptide.B prohor efrem N-Terminal [Mass/volume] in Serum or PlasmaOrdered By: Tor Irizarry on 12-07-2024 Natriuretic peptide.B prohormone N-Terminal [Mass/Vol] 2037 pg/mL High <1800 [facility] Neutrophil percentageOrdered By: Juli German on 12-07-2024 Neutrophils/100 WBC (Bld) 79.0 % High 47-70 [facility] Neutrophil percentageOrdered By: Boyd Rock on 12-07-2024 Neutrophils/100 WBC (Bld) 74.8 % High 47-70 [facility] No Panel InformationOrdered By: Boyd Rock on 12-07-2024 32 U/L <38 [facility] Platelet countOrdered By: Miri German on 12-07-2024 Platelets (Bld) [#/Vol] 190 10*3/uL 150-450 [facility] Platelet countOrdered By: Susanna Rock on 12-07-2024 Platelets (Bld) [#/Vol] 169 10*3/uL 150-450 [facility] Potassium measurement (mass/ volume)Ordered By: Juli German on 12-07-2024 Potassium (Unsp spec) [Mass/Vol] 4.1 mmol/L 3.3-5.1 [facility] Potassium measurement (mass/ volume)Ordered By: Boyd Rock on 12-07-2024 Potassium (Unsp spec) [Mass/Vol] 3.5 mmol/L 3.3-5.1 [facility] Pro- Brain NATRIURETIC PEPTI Sharon 12-07-2024 Natriuretic peptide B (Bld) [Mass/Vol] 2037 pg/mL High <=1800 [facility] Comment on above: Result Comment: Hear t Failure Unlikely: < 300 pg/mLHeart Failure Likely< 50 Years: > 450 pg/mL50-75 Years: > 900 pg/mL>75 Years: > 1800 pg/mL Performed By: #### L 503.7505 ####[facility] [address] [place], [address] RBC Auto (Bld) [#/Vol]Ordere d By: Juli German on 12-07-2024 RBC (Bld) [#/Vol] 4.54 10*6/uL Low 4.6-6.2 [facility] RBC Auto (Bld) [#/Vol]Ordere d By: Boyd Rock on 12-07-2024 RBC (Bld) [#/Vol] 4.30 10*6/uL Low 4.6-6.2 [facility] Serum creatinine measurement (mass/volume)Ordered By: Juli German on 12-07-2024 Creatinine [Mass/Vol] 2.76 mg/dL High 0.70-1.[address] [facility] Serum creatinine measurement (mass/volume)Ordered By: Boyd Rock on 12-07-2024 Creatinine [Mass/Vol] 2.56 mg/dL High 0.70-1.[address] [facility] Serum globulin measurementOr dered By: Boyd Rock on 12-07-2024 Globulin (S) [Mass/Vol] 3.5 g/dL 2.2-4.2 [facility] Serum glucose measurement (m ass/volume)Ordered By: Juli German on 12-07-2024 Glucose [Mass/Vol] 209 mg/dL High 70-99 [facility] Serum glucose measurement (m ass/volume)Ordered By: Boyd Rock on 12-07-2024 Glucose [Mass/Vol] 156 mg/dL High 70-99 [facility] Serum or plasma alanine guerrero otransferase (ALT) measurementOrdered By: Boyd Rock on 12-07-2024 ALT [Catalytic activity/Vol] 28 U/L <47 [facility] Serum or plasma albumin francine urement (mass/volume)Ordered By: Boyd Rock on 12-07-2024 Albumin [Mass/Vol] 4.1 g/dL 3.4-4.8 [facility] Serum or plasma albumin/glob ulin mass ratioOrdered By: Byod Rock on 12-07-2024 Albumin/Globulin [Mass ratio] 1.2 {ratio} 0.9-2.4 [facility] Serum or plasma alkaline bell sphatase measurementOrdered By: Boyd Rock on 12-07-2024 ALP [Catalytic activity/Vol] 122 U/L 40-129 [facility] Serum or plasma calcium francine urement (mass/volume)Ordered By: Juli German on 12-07-2024 Calcium [Mass/Vol] 9.5 mg/dL 7.6-11.0 [facility] Serum or plasma calcium francine urement (mass/volume)Ordered By: Boyd Rock on 12-07-2024 Calcium [Mass/Vol] 9.4 mg/dL 7.6-11.0 [facility] Serum or plasma cholesterol in HDL measurement (mass/volume)Ordered By: Boyd Rock on 12-07-2024 Cholesterol in HDL [Mass/Vol] 36 mg/dL Low >40 [facility] Serum or plasma cholesterol measurement (mass/volume)Ordered By: Boyd Rock on 12-07-2024 Cholesterol [Mass/Vol] 154 mg/dL <201 [facility] Serum or plasma urea nitroge n measurement (mass/volume)Ordered By: Juli German on 12-07-2024 Urea nitrogen [Mass/Vol] 40 mg/dL High 4-19 [facility] Serum or plasma urea nitroge n measurement (mass/volume)Ordered By: Boyd Rock on 12-07-2024 Urea nitrogen [Mass/Vol] 39 mg/dL High -19 [facility] Sodium levelOrdered By: Juli German on 12-07-2024 Sodium [Moles/Vol] 132 mmol/L Low 133-145 [facility] Sodium levelOrdered By: Luep Rock on 12-07-2024 Sodium [Moles/Vol] 135 mmol/L 133-145 [facility] TSH DL <= 0.005 mIU/L QnOrde red By: Boyd Rock on 12-07-2024 TSH Qn 9.200 uIU/mL High 0.300-4.[address] [facility] Total proteinOrdered By: Anastacio Rock on 12-07-2024 Protein [Mass/Vol] 7.5 g/dL 5.9-8.4 [facility] Troponin T HS 2 HRon 025 Trop T High Sen 6442 ng/L Invalid Interpretation Code <=22 [facility] Comment on above: Result Comment: Crit ical Result(s) Called at 1336: by: MONICA PERALTA.??Results read back by same. Performed By: #### L 499.0042 ####[facility] [address] [place], [place], [address] Troponin T HS 4 HRon 025 Trop T High Sen 6556 ng/L Invalid Interpretation Code <=22 [facility] Comment on above: Result Comment: Crit ical Result(s) Called at: 1740 by:??MOISE VEEHailey AMANDEEP BILANCINI Results read back by same. Performed By: #### L 499.0043 ####[facility] [address] [place], [address] Troponin T.cardiac [Mass/vol ume] in Serum or Plasma by High sensitivity methodOrdered By: Juli Greman on 12-07-2024 Troponin T.cardiac High sensitivity method [Mass/Vol] 6556 ng/L High <22 [facility] Troponin T.cardiac High sensitivity method [Mass/Vol] 6442 ng/L High <22 [facility] Troponin T.cardiac High sensitivity method [Mass/Vol] 7122 ng/L High <22 [facility] White blood cell (WBC) count Ordered By: Juli German on 12-07-2024 WBC (Bld) [#/Vol] 11.9 10*3/uL High 4.4-11.0 [facility] White blood cell (WBC) count Ordered By: Boyd Rock on 12-07-2024 WBC (Bld) [#/Vol] 10.5 10*3/uL 4.4-11.0 [facility] 12 Lead EKGon 12-06-[address] [facility] Absolute lymphocyte countOrd ered By: Alex Sanon on 12-06-2024 Lymphocytes Auto (Unsp spec) [#/Vol] 1.09 10*3/uL 0.83-4.51 [facility] Anion gap in Serum or Plasma Ordered By: Marcin Araujo on 12-06-2024 Anion gap [Moles/Vol] 17 mmol/L High 5-[address] [facility] Automated lymphocyte count a s percentage of total leukocytesOrdered By: Alex Sanon on 12-06-2024 Lymphocytes/100 WBC Auto (Unsp spec) 11.6 % Low 19-41 [facility] BUN/creatinine ratioOrdered By: Marcin Araujo on 12-06-2024 Urea nitrogen/Creatinine [Mass ratio] 16.1 mg/mg 10-20 [facility] Basic Metabolic Profile (BMP )on 12-06-2024 BUN/CRE 16.1 RATIO Normal 10-20 [facility] Comment on above: Performed By: #### L 500.2500 ####[facility] [address] [place], [address] Calcium [Mass/Vol] 9.2 mg/dL Normal 7.6-11.0 [facility] Comment on above: Performed By: #### L 500.2500 ####[facility] [address] [place], [address] Chloride [Moles/Vol] 96 mmol/L Low 98-108 [facility] Comment on above: Performed By: #### L 500.2500 ####[facility] [address] [place], [address] CO2 [Moles/Vol] 20.6 mmol/L Low 21.0-32.0 [facility] Comment on above: Performed By: #### L 500.2500 ####[facility] [address] [place], [address] Creatinine [Mass/Vol] 2.46 mg/dL High 0.70-1.[address] [facility] Comment on above: Performed By: #### L 500.2500 ####[facility] [address] [place], [address] ECRCL 28.56 ml/min Low 50-250 [facility] Comment on above: Performed By: #### L 500.2500 ####[facility] [address] [place], [address] GAP 17 High 5-15 [facility] Comment on above: Performed By: #### L 500.2500 ####[facility] [address] [place], [address] GFR/1.73 sq M.predicted among non-blacks MDRD (S/P/Bld) [Vol rate/Area] 26 mL/min/{1.73_m2} Low >60 [facility] Comment on above: Result Comment: mL/m in/1.73m2 CKD-EPI Creatinine Equation (2020) Performed By: #### L 500.2500 ####[facility] [address] [place], [address] Glucose [Mass/Vol] 186 mg/dL High 70-99 [facility] Comment on above: Performed By: #### L 500.2500 ####[facility] [address] [place], [address] Potassium [Moles/Vol] 4.1 mmol/L Normal 3.3-5.[address] [facility] Comment on above: Performed By: #### L 500.2500 ####[facility] [address] [place], [address] Sodium [Moles/Vol] 133 mmol/L Normal 133-145 [facility] Comment on above: Performed By: #### L 500.2500 ####[facility] [address] [place], [address] Urea nitrogen [Mass/Vol] 40 mg/dL High 4-19 [facility] Comment on above: Performed By: #### L 500.2500 ####[facility] [address] [place], [address] BUN/CRE 17.0 RATIO Normal 10-20 [facility] Comment on above: Performed By: #### L 100.0100, L501.2300, L501.5200, L500.2500 ####[facility] [address] [place], [address] Calcium [Mass/Vol] 9.0 mg/dL Normal 7.6-11.0 [facility] Comment on above: Performed By: #### L 100.0100, L501.2300, L501.5200, L500.2500 ####[facility] [address] [place], [address] Chloride [Moles/Vol] 97 mmol/L Low 98-108 [facility] Comment on above: Performed By: #### L 100.0100, L501.2300, L501.5200, L500.2500 ####[facility] [address] [place], [address] CO2 [Moles/Vol] 21.9 mmol/L Normal 21.0-32.0 [facility] Comment on above: Performed By: #### L 100.0100, L501.2300, L501.5200, L500.2500 ####[facility] [address] [place], [address] Creatinine [Mass/Vol] 2.53 mg/dL High 0.70-1.[address] [facility] Comment on above: Performed By: #### L 100.0100, L501.2300, L501.5200, L500.2500 ####[facility] [address] [place], [address] ECRCL 1.34 ml/min Invalid Interpretation Code 50-250 [facility] Comment on above: Performed By: #### L 100.0100, L501.2300, L501.5200, L500.2500 ####[facility] [address] [place], [address] GAP 17 High 5-15 [facility] Comment on above: Performed By: #### L 100.0100, L501.2300, L501.5200, L500.2500 ####[facility] [address] [place], [address] GFR/1.73 sq M.predicted among non-blacks MDRD (S/P/Bld) [Vol rate/Area] 25 mL/min/{1.73_m2} Low >60 [facility] Comment on above: Result Comment: mL/m in/1.73m2 CKD-EPI Creatinine Equation (2020) Performed By: #### L 100.0100, L501.2300, L501.5200, L500.2500 ####[facility] [address] [place], [address] Glucose [Mass/Vol] 161 mg/dL High 70-99 [facility] Comment on above: Performed By: #### L 100.0100, L501.2300, L501.5200, L500.2500 ####[facility] [address] [place], [address] Potassium [Moles/Vol] 3.5 mmol/L Normal 3.3-5.[address] [facility] Comment on above: Performed By: #### L 100.0100, L501.2300, L501.5200, L500.2500 ####[facility] [address] [place], [address] Sodium [Moles/Vol] 135 mmol/L Normal 133-145 [facility] Comment on above: Performed By: #### L 100.0100, L501.2300, L501.5200, L500.2500 ####[facility] [address] [place], [address] Urea nitrogen [Mass/Vol] 43 mg/dL High 4-19 [facility] Comment on above: Performed By: #### L 100.0100, L501.2300, L501.5200, L500.2500 ####[facility] [address] [place], [address] Basophil percentageOrdered B y: Alex Sanon on 12-06-2024 Basophils/100 WBC (Bld) 0.2 % 0-1 [facility] Bedside Glucoseon 12-06-2024 FINGERSTICK GLU 197 mg/dL High 74-106 [facility] Comment on above: Result Comment: WILDA GEMENT OF PATIENT CARE PER NURSING PROTOCOL Performed By: #### L 501.080 ####[facility] [address] [place], [address] FINGERSTICK GLU 165 mg/dL High 74-106 [facility] Comment on above: Result Comment: WILDA GEMENT OF PATIENT CARE PER NURSING PROTOCOL Performed By: #### L 501.080 ####[facility] [address] [place], [address] CBC W/Diff, Automatedon Absolute Lymph 1.09 X10 3/uL Normal 0.83-4.51 [facility] Comment on above: Performed By: #### L 100.0100, L501.2300, L501.5200, L500.2500 ####[facility] [address] [place], [address] Absolute Neut 6.8 X10 3/uL Normal 2.0-7.7 [facility] Comment on above: Performed By: #### L 100.0100, L501.2300, L501.5200, L500.2500 ####[facility] [address] [place], [address] Basophils/100 WBC (Bld) 0.2 % Normal 0-1 [facility] Comment on above: Performed By: #### L 100.0100, L501.2300, L501.5200, L500.2500 ####[facility] [address] [place], [address] Eosinophils/100 WBC (Bld) 2.0 % Normal 0-5 [facility] Comment on above: Performed By: #### L 100.0100, L501.2300, L501.5200, L500.2500 ####[facility] [address] [place], [address] Erythrocyte distribution width (RBC) [Ratio] 13.6 % Normal 11.6-14.6 [facility] Comment on above: Performed By: #### L 100.0100, L501.2300, L501.5200, L500.2500 ####[facility] [address] [place], [address] Hematocrit (Bld) [Volume fraction] 35.0 % Low 40-54 [facility] Comment on above: Performed By: #### L 100.0100, L501.2300, L501.5200, L500.2500 ####[facility] [address] [place], [address] Hemoglobin (Bld) [Mass/Vol] 11.6 g/dL Low 13.0-16.5 [facility] Comment on above: Performed By: #### L 100.0100, L501.2300, L501.5200, L500.2500 ####[facility] [address] [place], [address] IG% 0.600 Normal 0.0-0.9 [facility] Comment on above: Result Comment: IG% - Immature Granulocytes (promyelocytes, myelocytes andmetamyelocytes) > 1% indicates that a LEFT SHIFT is Present. Performed By: #### L 100.0100, L501.2300, L501.5200, L500.2500 ####[facility] [address] [place], [address] Lymphocytes/100 WBC (Bld) 11.6 % Low 19-41 [facility] Comment on above: Performed By: #### L 100.0100, L501.2300, L501.5200, L500.2500 ####[facility] [address] [place], [address] MCH (RBC) [Entitic mass] 29.1 pg Normal 27.0-32.0 [facility] Comment on above: Performed By: #### L 100.0100, L501.2300, L501.5200, L500.2500 ####[facility] [address] [place], [address] MCHC (RBC) [Mass/Vol] 33.1 g/dL Normal 32-[address] [facility] Comment on above: Performed By: #### L 100.0100, L501.2300, L501.5200, L500.2500 ####[facility] [address] [place], [address] MCV (RBC) [Entitic vol] 87.9 fL Normal 80-94 [facility] Comment on above: Performed By: #### L 100.0100, L501.2300, L501.5200, L500.2500 ####[facility] [address] [place], [address] Monocytes/100 WBC (Bld) 12.9 % High 0-10 [facility] Comment on above: Performed By: #### L 100.0100, L501.2300, L501.5200, L500.2500 ####[facility] [address] [place], [address] Neutrophils/100 WBC (Bld) 72.7 % High 47-70 [facility] Comment on above: Performed By: #### L 100.0100, L501.2300, L501.5200, L500.2500 ####[facility] [address] [place], [address] Nucleated RBC (Bld) [#/Vol] 0 10*3/uL Normal 0-5 [facility] Comment on above: Performed By: #### L 100.0100, L501.2300, L501.5200, L500.2500 ####[facility] [address] [place], [address] Platelet mean volume (Bld) [Entitic vol] 12.9 fL High 6.2-12.0 [facility] Comment on above: Performed By: #### L 100.0100, L501.2300, L501.5200, L500.2500 ####[facility] [address] [place], [address] Platelets (Bld) [#/Vol] 140 10*3/uL Low 150-450 [facility] Comment on above: Performed By: #### L 100.0100, L501.2300, L501.5200, L500.2500 ####[facility] [address] [place], [address] RBC (Bld) [#/Vol] 3.98 10*6/uL Low 4.6-6.2 [facility] Comment on above: Performed By: #### L 100.0100, L501.2300, L501.5200, L500.2500 ####[facility] [address] [place], [address] RDW SD 44.0 fl High 35.1-43.9 [facility] Comment on above: Performed By: #### L 100.0100, L501.2300, L501.5200, L500.2500 ####[facility] [address] [place], [address] WBC (Bld) [#/Vol] 9.4 10*3/uL Normal 4.4-11.0 [facility] Comment on above: Performed By: #### L 100.0100, L501.2300, L501.5200, L500.2500 ####[facility] [address] [place], [address] Carbon dioxide, total [Moles /volume] in Central venous bloodOrdered By: Marcin rAaujo on 12-06-2024 CO2 [Moles/Vol] 20.6 mmol/L Low 21.0-32.0 [facility] Chloride assayOrdered By: Russell Araujo on 12-06-2024 Chloride [Moles/Vol] 96 mmol/L Low 98-108 [facility] Electrocardiogram reportOrde red By: Marcin Araujo on 12-06-[address] [facility] Work Phone: [phone] [facility] Work Phone: [phone] Eosinophil percentageOrdered By: Alex Sanon on 12-06-2024 Eosinophils/100 WBC (Bld) 2.0 % 0-5 [facility] Erythrocyte distribution wid th ratioOrdered By: Alex Sanon on 12-06-2024 Erythrocyte distribution width (RBC) [Ratio] 13.6 % 11.6-14.6 [facility] Erythrocyte distribution wid th standard deviationOrdered By: Alex Sanon on 12-06-2024 Erythrocyte distribution width (RBC) [Ratio] 44.0 fl High 35.1-43.9 [facility] Glomerular filtration rate ( GFR) estimation/1.73 sq m using serum, plasma, or whole bOrdered By: Marcin Araujo on 12-06-2024 GFR/1.73 sq M.predicted among non-blacks MDRD (S/P/Bld) [Vol rate/Area] 26 mL/min/{1.73_m2} Low >60 [facility] deOrdered By: Alex Sanon on 12-06-2024 Glucose [Mass/Vol] 197 mg/dL High 74-106 [facility] Hematocrit Auto (Bld) [Volum e fraction]Ordered By: Alex Sanon on 12-06-2024 Hematocrit (Bld) [Volume fraction] 35.0 % Low 40-54 [facility] Hemoglobin measurementOrdere d By: Alex Sanon on 12-06-2024 Hemoglobin (Bld) [Mass/Vol] 11.6 g/dL Low 13.0-16.5 [facility] Immature granulocytes/100 WB C Auto (Bld)Ordered By: Alex Sanon on 12-06-2024 Immature granulocytes/100 WBC (Bld) 0.600 % 0.0-0.9 [facility] MCV (mean corpuscular volume ) determinationOrdered By: Alex Sanon on 12-06-2024 MCV (RBC) [Entitic vol] 87.9 fL 80-94 [facility] Magnesiumon 12-06-2024 Magnesium [Mass/Vol] 2.4 mg/dL High 1.5-2.2 [facility] Comment on above: Performed By: #### L 100.0100, L501.2300, L501.5200, L500.2500 ####[facility] [address] [place], [place], [id number] Magnesium measurement (mass/ volume)Ordered By: Alex Sanon on 12-06-2024 Magnesium (Unsp spec) [Mass/Vol] 2.4 mg/dL High 1.5-2.2 [facility] Mean corpuscular hemoglobin (MCH) determinationOrdered By: Alex Sanon on 12-06-2024 MCH (RBC) [Entitic mass] 29.1 pg 27.0-32.0 [facility] Monocyte percentageOrdered B y: Alex Sanon on 12-06-2024 Monocytes/100 WBC (Bld) 12.9 % High 0-10 [facility] Neutrophil percentageOrdered By: Alex Sanon on 12-06-2024 Neutrophils/100 WBC (Bld) 72.7 % High 47-70 [facility] Phosphoruson 12-06-2024 Phosphate [Mass/Vol] 2.9 mg/dL Normal 2.7-4.5 [facility] Comment on above: Performed By: #### L 100.0100, L501.2300, L501.5200, L500.2500 ####[facility] [address] [place], [address] Platelet countOrdered By: Danis Sanon on 12-06-2024 Platelets (Bld) [#/Vol] 140 10*3/uL Low 150-450 [facility] Potassium measurement (mass/ volume)Ordered By: Marcin Araujo on 12-06-2024 Potassium (Unsp spec) [Mass/Vol] 4.1 mmol/L 3.3-5.1 [facility] RBC Auto (Bld) [#/Vol]Ordere d By: Alex Sanon on 12-06-2024 RBC (Bld) [#/Vol] 3.98 10*6/uL Low 4.6-6.2 [facility] Serum creatinine measurement (mass/volume)Ordered By: Marcin Araujo on 12-06-2024 Creatinine [Mass/Vol] 2.46 mg/dL High 0.70-1.[address] [facility] Serum glucose measurement (m ass/volume)Ordered By: Marcin Araujo on 12-06-2024 Glucose [Mass/Vol] 186 mg/dL High 70-99 [facility] Serum or plasma calcium francine urement (mass/volume)Ordered By: Marcin Araujo on 12-06-2024 Calcium [Mass/Vol] 9.2 mg/dL 7.6-11.0 [facility] Serum or plasma urea nitroge n measurement (mass/volume)Ordered By: Marcin Araujo on 12-06-2024 Urea nitrogen [Mass/Vol] 40 mg/dL High 4-19 [facility] Sodium levelOrdered By: Madeline Araujo on 12-06-2024 Sodium [Moles/Vol] 133 mmol/L 133-145 [facility] White blood cell (WBC) count Ordered By: Alex Sanon on 12-06-2024 WBC (Bld) [#/Vol] 9.4 10*3/uL 4.4-11.0 [facility] Anion gap in Serum or Plasma Ordered By: Abraham Ridley on 12-05-2024 Anion gap [Moles/Vol] 19 mmol/L High 5-[address] [facility] BUN/creatinine ratioOrdered By: Abraham Ridley on 12-05-2024 Urea nitrogen/Creatinine [Mass ratio] 18.2 mg/mg 10- [facility] Basic Metabolic Profile (BMP )on 12-05-2024 BUN/CRE 18.2 RATIO Normal - [facility] Comment on above: Performed By: #### L 500.2500 ####[facility] [address] [place], [address] Calcium [Mass/Vol] 9.1 mg/dL Normal 7.6-11.0 [facility] Comment on above: Performed By: #### L 500.2500 ####[facility] [address] [place], [address] Chloride [Moles/Vol] 96 mmol/L Low 98-108 [facility] Comment on above: Performed By: #### L 500.2500 ####[facility] [address] [place], [address] CO2 [Moles/Vol] 22.4 mmol/L Normal 21.0-32.0 [facility] Comment on above: Performed By: #### L 500.2500 ####[facility] [address] [place], [address] Creatinine [Mass/Vol] 2.57 mg/dL High 0.70-1.[address] [facility] Comment on above: Performed By: #### L 500.2500 ####[facility] [address] [place], [address] ECRCL 27.41 ml/min Low 50-250 [facility] Comment on above: Performed By: #### L 500.2500 ####[facility] [address] [place], [address] GAP 19 High 5-15 [facility] Comment on above: Performed By: #### L 500.2500 ####[facility] [address] [place], [address] GFR/1.73 sq M.predicted among non-blacks MDRD (S/P/Bld) [Vol rate/Area] 25 mL/min/{1.73_m2} Low >60 [facility] Comment on above: Result Comment: mL/m in/1.73m2 CKD-EPI Creatinine Equation (2020) Performed By: #### L 500.2500 ####[facility] [address] [place], [address] Glucose [Mass/Vol] 155 mg/dL High 70-99 [facility] Comment on above: Performed By: #### L 500.2500 ####[facility] [address] [place], [address] Potassium [Moles/Vol] 3.2 mmol/L Low 3.3-5.[address] [facility] Comment on above: Performed By: #### L 500.2500 ####[facility] [address] [place], [address] Sodium [Moles/Vol] 137 mmol/L Normal 133-145 [facility] Comment on above: Performed By: #### L 500.2500 ####[facility] [address] [place] [place], [address] Urea nitrogen [Mass/Vol] 47 mg/dL High 4-19 [facility] Comment on above: Performed By: #### L 500.2500 ####[facility] [address] [place], [address] Bedside Glucoseon 12-05-2024 FINGERSTICK GLU 196 mg/dL High 74-106 [facility] Comment on above: Result Comment: WILDA GEMENT OF PATIENT CARE PER NURSING PROTOCOL Performed By: #### L 501.080 ####[facility] [address] [place], [address] FINGERSTICK GLU 183 mg/dL High 74-106 [facility] Comment on above: Result Comment: WILDA GEMENT OF PATIENT CARE PER NURSING PROTOCOL Performed By: #### L 501.080 ####[facility] [address] [place], [address] FINGERSTICK GLU 194 mg/dL High 74-106 [facility] Comment on above: Result Comment: WILDA GEMENT OF PATIENT CARE PER NURSING PROTOCOL Performed By: #### L 501.080 ####[facility] [address] [place], [place], [address] FINGERSTICK GLU 190 mg/dL High 74-106 [facility] Comment on above: Result Comment: WILDA GEMENT OF PATIENT CARE PER NURSING PROTOCOL Performed By: #### L 501.080 ####[facility] [address] [place], [address] Carbon dioxide, total [Moles /volume] in Central venous bloodOrdered By: Abraham Ridley on 12-05-2024 CO2 [Moles/Vol] 22.4 mmol/L 21.0-32.0 [facility] Chloride assayOrdered By: Jaylen Ridley on 12-05-2024 Chloride [Moles/Vol] 96 mmol/L Low 98-108 [facility] Glomerular filtration rate ( GFR) estimation/1.73 sq m using serum, plasma, or whole bOrdered By: Abraham Ridley on 12-05-2024 GFR/1.73 sq M.predicted among non-blacks MDRD (S/P/Bld) [Vol rate/Area] 25 mL/min/{1.73_m2} Low >60 [facility] deOrdered By: Abraham Ridley on 12-05-2024 Glucose [Mass/Vol] 190 mg/dL High 74-106 [facility] Potassium measurement (mass/ volume)Ordered By: Abraham Ridley on 12-05-2024 Potassium (Unsp spec) [Mass/Vol] 3.2 mmol/L Low 3.3-5.1 [facility] Serum creatinine measurement (mass/volume)Ordered By: Abraham Ridley on 12-05-2024 Creatinine [Mass/Vol] 2.57 mg/dL High 0.70-1.[address] [facility] Serum glucose measurement (m ass/volume)Ordered By: Abraham Ridley on 12-05-2024 Glucose [Mass/Vol] 155 mg/dL High 70-99 [facility] Serum or plasma calcium francine urement (mass/volume)Ordered By: Abraham Ridley on 12-05-2024 Calcium [Mass/Vol] 9.1 mg/dL 7.6-11.0 [facility] Serum or plasma urea nitroge n measurement (mass/volume)Ordered By: Abraham Ridley on 12-05-2024 Urea nitrogen [Mass/Vol] 47 mg/dL High 4-19 [facility] Sodium levelOrdered By: Isael Ridley on 12-05-2024 Sodium [Moles/Vol] 137 mmol/L 133-145 [facility] 12 Lead EKGon 12-04-[address] [facility] Absolute lymphocyte countOrd ered By: Ramonita Herorn on 12-04-2024 Lymphocytes Auto (Unsp spec) [#/Vol] 1.07 10*3/uL 0.83-4.51 [facility] Automated lymphocyte count a s percentage of total leukocytesOrdered By: Ramonita Herron on 12-04-2024 Lymphocytes/100 WBC Auto (Unsp spec) 11.1 % Low 19-41 [facility] Basic Metabolic Profile (BMP )on 12-04-2024 BUN/CRE 19.4 RATIO Normal 10-20 [facility] Comment on above: Performed By: #### L 500.2500, L100.0100 ####[facility] [address] [place], [address] Calcium [Mass/Vol] 9.2 mg/dL Normal 7.6-11.0 [facility] Comment on above: Performed By: #### L 500.2500, L100.0100 ####[facility] [address] [place], [address] Chloride [Moles/Vol] 96 mmol/L Low 98-108 [facility] Comment on above: Performed By: #### L 500.2500, L100.0100 ####[facility] [address] [place], [address] CO2 [Moles/Vol] 21.4 mmol/L Normal 21.0-32.0 [facility] Comment on above: Performed By: #### L 500.2500, L100.0100 ####[facility] [address] [place], [address] Creatinine [Mass/Vol] 2.53 mg/dL High 0.70-1.[address] [facility] Comment on above: Performed By: #### L 500.2500, L100.0100 ####[facility] [address] [place], [address] ECRCL 28.47 ml/min Low 50-250 [facility] Comment on above: Performed By: #### L 500.2500, L100.0100 ####[facility] [address] [place], [address] GAP 19 High 5-15 [facility] Comment on above: Performed By: #### L 500.2500, L100.0100 ####[facility] [address] [place], [address] GFR/1.73 sq M.predicted among non-blacks MDRD (S/P/Bld) [Vol rate/Area] 25 mL/min/{1.73_m2} Low >60 [facility] Comment on above: Result Comment: mL/m in/1.73m2 CKD-EPI Creatinine Equation (2020) Performed By: #### L 500.2500, L100.0100 ####[facility] [address] [place], [address] Glucose [Mass/Vol] 140 mg/dL High 70-99 [facility] Comment on above: Performed By: #### L 500.2500, L100.0100 ####[facility] [address] [place], [address] Potassium [Moles/Vol] 3.1 mmol/L Low 3.3-5.[address] [facility] Comment on above: Performed By: #### L 500.2500, L100.0100 ####[facility] [address] [place], [address] Sodium [Moles/Vol] 137 mmol/L Normal 133-145 [facility] Comment on above: Performed By: #### L 500.2500, L100.0100 ####[facility] [address] [place], [address] Urea nitrogen [Mass/Vol] 49 mg/dL High 4-19 [facility] Comment on above: Performed By: #### L 500.2500, L100.0100 ####[facility] [address] [place], [address] Basophil percentageOrdered B y: Ramonitadwain Herron on 12-04-2024 Basophils/100 WBC (Bld) 0.3 % 0-1 [facility] Bedside Glucoseon 12-04-2024 FINGERSTICK GLU 151 mg/dL High 74-106 [facility] Comment on above: Result Comment: WILDA GEMENT OF PATIENT CARE PER NURSING PROTOCOL Performed By: #### L 501.080 ####[facility] [address] [place], [address] FINGERSTICK GLU 147 mg/dL High 74-106 [facility] Comment on above: Result Comment: WILDA GEMENT OF PATIENT CARE PER NURSING PROTOCOL Performed By: #### L 501.080 ####[facility] [address] [place], [address] FINGERSTICK GLU 207 mg/dL High 74-106 [facility] Comment on above: Result Comment: WILDA GEMENT OF PATIENT CARE PER NURSING PROTOCOL Performed By: #### L 501.080 ####[facility] [address] [place], [address] FINGERSTICK GLU 147 mg/dL High 74-106 [facility] Comment on above: Result Comment: WILDA GEMENT OF PATIENT CARE PER NURSING PROTOCOL Performed By: #### L 501.080 ####[facility] [address] [place], [address] CBC W/Diff, Automatedon 08-0 4-2025 Absolute Lymph 1.07 X10 3/uL Normal 0.83-4.51 [facility] Comment on above: Performed By: #### L 500.2500, L100.0100 ####[facility] [address] [place], [address] Absolute Neut 7.1 X10 3/uL Normal 2.0-7.7 [facility] Comment on above: Performed By: #### L 500.2500, L100.0100 ####[facility] [address] [place], [address] Basophils/100 WBC (Bld) 0.3 % Normal 0-1 [facility] Comment on above: Performed By: #### L 500.2500, L100.0100 ####[facility] [address] [place], [address] Eosinophils/100 WBC (Bld) 2.2 % Normal 0-5 [facility] Comment on above: Performed By: #### L 500.2500, L100.0100 ####[facility] [address] [place], [address] Erythrocyte distribution width (RBC) [Ratio] 13.7 % Normal 11.6-14.6 [facility] Comment on above: Performed By: #### L 500.2500, L100.0100 ####[facility] [address] [place], [address] Hematocrit (Bld) [Volume fraction] 31.5 % Low 40-54 [facility] Comment on above: Performed By: #### L 500.2500, L100.0100 ####[facility] [address] [place], [address] Hemoglobin (Bld) [Mass/Vol] 10.5 g/dL Low 13.0-16.5 [facility] Comment on above: Performed By: #### L 500.2500, L100.0100 ####[facility] [address] [place], [address] IG% 0.600 Normal 0.0-0.9 [facility] Comment on above: Result Comment: IG% - Immature Granulocytes (promyelocytes, myelocytes andmetamyelocytes) > 1% indicates that a LEFT SHIFT is Present. Performed By: #### L 500.2500, L100.0100 ####[facility] [address] [place], [address] Lymphocytes/100 WBC (Bld) 11.1 % Low 19-41 [facility] Comment on above: Performed By: #### L 500.2500, L100.0100 ####[facility] [address] [place], [address] MCH (RBC) [Entitic mass] 29.2 pg Normal 27.0-32.0 [facility] Comment on above: Performed By: #### L 500.2500, L100.0100 ####[facility] [address] [place], [address] MCHC (RBC) [Mass/Vol] 33.3 g/dL Normal 32-[address] [facility] Comment on above: Performed By: #### L 500.2500, L100.0100 ####[facility] [address] [place], [address] MCV (RBC) [Entitic vol] 87.7 fL Normal 80-94 [facility] Comment on above: Performed By: #### L 500.2500, L100.0100 ####[facility] [address] [place], [address] Monocytes/100 WBC (Bld) 11.9 % High 0-10 [facility] Comment on above: Performed By: #### L 500.2500, L100.0100 ####[facility] [address] [place], [address] Neutrophils/100 WBC (Bld) 73.9 % High 47-70 [facility] Comment on above: Performed By: #### L 500.2500, L100.0100 ####[facility] [address] [place], [address] Nucleated RBC (Bld) [#/Vol] 0 10*3/uL Normal 0-5 [facility] Comment on above: Performed By: #### L 500.2500, L100.0100 ####[facility] [address] [place], [address] Platelet mean volume (Bld) [Entitic vol] 13.7 fL High 6.2-12.0 [facility] Comment on above: Performed By: #### L 500.2500, L100.0100 ####[facility] [address] [place], [address] Platelets (Bld) [#/Vol] 126 10*3/uL Low 150-450 [facility] Comment on above: Performed By: #### L 500.2500, L100.0100 ####[facility] [address] [place], [address] RBC (Bld) [#/Vol] 3.59 10*6/uL Low 4.6-6.2 [facility] Comment on above: Performed By: #### L 500.2500, L100.0100 ####[facility] [address] [place], [address] RDW SD 43.8 fl Normal 35.1-43.9 [facility] Comment on above: Performed By: #### L 500.2500, L100.0100 ####[facility] [address] [place], [address] WBC (Bld) [#/Vol] 9.7 10*3/uL Normal 4.4-11.0 [facility] Comment on above: Performed By: #### L 500.2500, L100.0100 ####[facility] [address] [place], [address] Cardiac catheterization repo rtOrdered By: Marcin Araujo on 12-04-[address] [facility] Work Phone: [phone] Electrocardiogram reportOrde red By: Marcin Araujo on 12-04-[address] [facility] Work Phone: Eosinophil percentageOrdered By: Ramonita Herron on 12-04-2024 Eosinophils/100 WBC (Bld) 2.2 % 0-5 [facility] Erythrocyte distribution wid th ratioOrdered By: Ramonita Herron on 12-04-2024 Erythrocyte distribution width (RBC) [Ratio] 13.7 % 11.6-14.6 [facility] Erythrocyte distribution wid th standard deviationOrdered By: Ramonita Herron on 12-04-2024 Erythrocyte distribution width (RBC) [Ratio] 43.8 fl 35.1-43.9 [facility] Hematocrit Auto (Bld) [Volum e fraction]Ordered By: Ramonita Herron on 12-04-2024 Hematocrit (Bld) [Volume fraction] 31.5 % Low 40-54 [facility] Hemoglobin measurementOrdere d By: Ramonita Herron on 12-04-2024 Hemoglobin (Bld) [Mass/Vol] 10.5 g/dL Low 13.0-16.5 [facility] Immature granulocytes/100 WB C Auto (Bld)Ordered By: Ramonita Herron on 12-04-2024 Immature granulocytes/100 WBC (Bld) 0.600 % 0.0-0.9 [facility] MCV (mean corpuscular volume ) determinationOrdered By: Ramonita Herron on 12-04-2024 MCV (RBC) [Entitic vol] 87.7 fL 80-94 [facility] Mean corpuscular hemoglobin (MCH) determinationOrdered By: Ramonita Herron on 12-04-2024 MCH (RBC) [Entitic mass] 29.2 pg 27.0-32.0 [facility] Monocyte percentageOrdered B y: Ramonita Herron on 12-04-2024 Monocytes/100 WBC (Bld) 11.9 % High 0-10 [facility] Neutrophil percentageOrdered By: Ramonita Herron on 12-04-2024 Neutrophils/100 WBC (Bld) 73.9 % High 47-70 [facility] Platelet countOrdered By: Parish Herron on 12-04-2024 Platelets (Bld) [#/Vol] 126 10*3/uL Low 150-450 [facility] RBC Auto (Bld) [#/Vol]Ordere d By: Ramonita Herron on 12-04-2024 RBC (Bld) [#/Vol] 3.59 10*6/uL Low 4.6-6.2 [facility] White blood cell (WBC) count Ordered By: Ramonita Herron on 12-04-2024 WBC (Bld) [#/Vol] 9.7 10*3/uL 4.4-11.0 [facility] 12 Lead EKGon 12-03-2024 [address] [facility] Bedside Glucoseon 12-03-2024 FINGERSTICK GLU 153 mg/dL High 74-106 [facility] Comment on above: Result Comment: WILDA GEMENT OF PATIENT CARE PER NURSING PROTOCOL Performed By: #### L 501.080 ####[facility] [address] [facility] [address] FINGERSTICK GLU 156 mg/dL High 74-106 [facility] Comment on above: Result Comment: WILDA GEMENT OF PATIENT CARE PER NURSING PROTOCOL Performed By: #### L 501.080 ####[facility] [address] [facility] [address] FINGERSTICK GLU 226 mg/dL High 74-106 [facility] Comment on above: Result Comment: WILDA GEMENT OF PATIENT CARE PER NURSING PROTOCOL Performed By: #### L 501.080 ####[facility] [address] [facility] [address] FINGERSTICK GLU 140 mg/dL High 74-106 [facility] Comment on above: Result Comment: WILDA GEMENT OF PATIENT CARE PER NURSING PROTOCOL Performed By: #### L 501.080 ####[facility] [address] [place], [address] FINGERSTICK GLU 200 mg/dL High 74-106 [facility] Comment on above: Result Comment: WILDA BARROSO OF PATIENT CARE PER NURSING PROTOCOL Performed By: #### L 501.080 ####[facility] [address] [place], [address] Bilirubin Test strip Ql (U)O rdered By: Alex Resendez on 12-03-2024 Bilirubin Ql (U) Negative Negative [facility] Bilirubin, totalOrdered By: Alex Resendez on 12-03-2024 Bilirubin [Mass/Vol] 1.27 mg/dL 0.00-1.30 [facility] CBC W/Diff, Automatedon Absolute Lymph 0.95 X10 3/uL Normal 0.83-4.51 [facility] Comment on above: Performed By: #### L 100.0100, L500.4050, L501.2300, L501.5200 ####[facility] [address] [place], [address] Absolute Neut 6.9 X10 3/uL Normal 2.0-7.7 [facility] Comment on above: Performed By: #### L 100.0100, L500.4050, L501.2300, L501.5200 ####[facility] [address] [place], [address] Basophils/100 WBC (Bld) 0.2 % Normal 0-1 [facility] Comment on above: Performed By: #### L 100.0100, L500.4050, L501.2300, L501.5200 ####[facility] [address] [place], [address] Eosinophils/100 WBC (Bld) 1.8 % Normal 0-5 [facility] Comment on above: Performed By: #### L 100.0100, L500.4050, L501.2300, L501.5200 ####[facility] [address] [place], [address] Erythrocyte distribution width (RBC) [Ratio] 14.2 % Normal 11.6-14.6 [facility] Comment on above: Performed By: #### L 100.0100, L500.4050, L501.2300, L501.5200 ####[facility] [address] [place], [address] Hematocrit (Bld) [Volume fraction] 31.8 % Low 40-54 [facility] Comment on above: Performed By: #### L 100.0100, L500.4050, L501.2300, L501.5200 ####[facility] [address] [place], [address] Hemoglobin (Bld) [Mass/Vol] 10.3 g/dL Low 13.0-16.5 [facility] Comment on above: Performed By: #### L 100.0100, L500.4050, L501.2300, L501.5200 ####[facility] [address] [place], [address] IG% 0.600 Normal 0.0-0.9 [facility] Comment on above: Result Comment: IG% - Immature Granulocytes (promyelocytes, myelocytes andmetamyelocytes) > 1% indicates that a LEFT SHIFT is Present. Performed By: #### L 100.0100, L500.4050, L501.2300, L501.5200 ####[facility] [address] [place], [address] Lymphocytes/100 WBC (Bld) 10.5 % Low 19-41 [facility] Comment on above: Performed By: #### L 100.0100, L500.4050, L501.2300, L501.5200 ####[facility] [address] [place], [address] MCH (RBC) [Entitic mass] 29.3 pg Normal 27.0-32.0 [facility] Comment on above: Performed By: #### L 100.0100, L500.4050, L501.2300, L501.5200 ####[facility] [address] [place], [address] MCHC (RBC) [Mass/Vol] 32.4 g/dL Normal 32-[address] [facility] Comment on above: Performed By: #### L 100.0100, L500.4050, L501.2300, L501.5200 ####[facility] [address] [place], [address] MCV (RBC) [Entitic vol] 90.3 fL Normal 80-94 [facility] Comment on above: Performed By: #### L 100.0100, L500.4050, L501.2300, L501.5200 ####[facility] [address] [place], [address] Monocytes/100 WBC (Bld) 11.4 % High 0-10 [facility] Comment on above: Performed By: #### L 100.0100, L500.4050, L501.2300, L501.5200 ####[facility] [address] [place], [address] Neutrophils/100 WBC (Bld) 75.5 % High 47-70 [facility] Comment on above: Performed By: #### L 100.0100, L500.4050, L501.2300, L501.5200 ####[facility] [address] [place], [address] Nucleated RBC (Bld) [#/Vol] 0 10*3/uL Normal 0-5 [facility] Comment on above: Performed By: #### L 100.0100, L500.4050, L501.2300, L501.5200 ####[facility] [address] [place], [address] Platelet mean volume (Bld) [Entitic vol] 12.4 fL High 6.2-12.0 [facility] Comment on above: Performed By: #### L 100.0100, L500.4050, L501.2300, L501.5200 ####[facility] [address] [place], [address] Platelets (Bld) [#/Vol] 104 10*3/uL Low 150-450 [facility] Comment on above: Performed By: #### L 100.0100, L500.4050, L501.2300, L501.5200 ####[facility] [address] [place], [address] RBC (Bld) [#/Vol] 3.52 10*6/uL Low 4.6-6.2 [facility] Comment on above: Performed By: #### L 100.0100, L500.4050, L501.2300, L501.5200 ####[facility] [address] [place], [address] RDW SD 46.0 fl High 35.1-43.9 [facility] Comment on above: Performed By: #### L 100.0100, L500.4050, L501.2300, L501.5200 ####[facility] [address] [place], [address] WBC (Bld) [#/Vol] 9.1 10*3/uL Normal 4.4-11.0 [facility] Comment on above: Performed By: #### L 100.0100, L500.4050, L501.2300, L501.5200 ####[facility] [address] [place], [address] Comprehensive Metabolic Prof ilnilesh 12-03-2024 Albumin [Mass/Vol] 3.4 g/dL Normal 3.4-4.8 [facility] Comment on above: Performed By: #### L 100.0100, L500.4050, L501.2300, L501.5200 ####[facility] [address] [place] [place], [address] Albumin/Globulin [Mass ratio] 1.2 {ratio} Normal 0.9-2.4 [facility] Comment on above: Performed By: #### L 100.0100, L500.4050, L501.2300, L501.5200 ####[facility] [address] [place] [place], [address] ALK PHOS 94 U/L Normal 40-129 [facility] Comment on above: Performed By: #### L 100.0100, L500.4050, L501.2300, L501.5200 ####[facility] [address] [place] [place], [address] ALT [Catalytic activity/Vol] 47 U/L Normal <=46 [facility] Comment on above: Performed By: #### L 100.0100, L500.4050, L501.2300, L501.5200 ####[facility] [address] [place] [place], [address] AST [Catalytic activity/Vol] 134 U/L High <=37 [facility] Comment on above: Performed By: #### L 100.0100, L500.4050, L501.2300, L501.5200 ####[facility] [address] [place], [address] Bilirubin [Mass/Vol] 1.27 mg/dL Normal 0.00-1.30 [facility] Comment on above: Performed By: #### L 100.0100, L500.4050, L501.2300, L501.5200 ####[facility] [address] [place], [address] BUN/CRE 20.6 RATIO High 10-20 [facility] Comment on above: Performed By: #### L 100.0100, L500.4050, L501.2300, L501.5200 ####[facility] [address] [place], [address] Calcium [Mass/Vol] 8.9 mg/dL Normal 7.6-11.0 [facility] Comment on above: Performed By: #### L 100.0100, L500.4050, L501.2300, L501.5200 ####[facility] [address] [place], [address] Chloride [Moles/Vol] 100 mmol/L Normal 98-108 [facility] Comment on above: Performed By: #### L 100.0100, L500.4050, L501.2300, L501.5200 ####[facility] [address] [place] [place], [address] CO2 [Moles/Vol] 18.7 mmol/L Low 21.0-32.0 [facility] Comment on above: Performed By: #### L 100.0100, L500.4050, L501.2300, L501.5200 ####[facility] [address] [place], [address] Creatinine [Mass/Vol] 2.58 mg/dL High 0.70-1.[address] [facility] Comment on above: Performed By: #### L 100.0100, L500.4050, L501.2300, L501.5200 ####[facility] [address] [place], [address] ECRCL 28.22 ml/min Low 50-250 [facility] Comment on above: Performed By: #### L 100.0100, L500.4050, L501.2300, L501.5200 ####[facility] [address] [place], [address] GAP 15 Normal 5-15 [facility] Comment on above: Performed By: #### L 100.0100, L500.4050, L501.2300, L501.5200 ####[facility] [address] [place], [address] GFR/1.73 sq M.predicted among non-blacks MDRD (S/P/Bld) [Vol rate/Area] 25 mL/min/{1.73_m2} Low >60 [facility] Comment on above: Result Comment: mL/m in/1.73m2 CKD-EPI Creatinine Equation (2020) Performed By: #### L 100.0100, L500.4050, L501.2300, L501.5200 ####[facility] [address] [place], [address] Globulin (S) [Mass/Vol] 2.8 g/dL Normal 2.2-4.2 [facility] Comment on above: Performed By: #### L 100.0100, L500.4050, L501.2300, L501.5200 ####[facility] [address] [place], [address] Glucose [Mass/Vol] 154 mg/dL High 70-99 [facility] Comment on above: Performed By: #### L 100.0100, L500.4050, L501.2300, L501.5200 ####[facility] [address] [place], [address] Potassium [Moles/Vol] 3.7 mmol/L Normal 3.3-5.[address] [facility] Comment on above: Performed By: #### L 100.0100, L500.4050, L501.2300, L501.5200 ####[facility] [address] [place], [address] Sodium [Moles/Vol] 134 mmol/L Normal 133-145 [facility] Comment on above: Performed By: #### L 100.0100, L500.4050, L501.2300, L501.5200 ####[facility] [address] [place], [address] T PROT 6.3 g/dL Normal 5.9-8.4 [facility] Comment on above: Performed By: #### L 100.0100, L500.4050, L501.2300, L501.5200 ####[facility] [address] [place], [address] Urea nitrogen [Mass/Vol] 53 mg/dL High 4-19 [facility] Comment on above: Performed By: #### L 100.0100, L500.4050, L501.2300, L501.5200 ####[facility] [address] [place], [address] Consultation - Cardiologyon 12-03-2024 Consultation - Cardiology Normal [facility] Ketones Test strip Ql (U)Ord ered By: Alex Resendez on 12-03-2024 Ketones Ql (U) Negative Negative [facility] Magnesiumon 12-03-2024 Magnesium [Mass/Vol] 2.5 mg/dL High 1.5-2.2 [facility] Comment on above: Performed By: #### L 100.0100, L500.4050, L501.2300, L501.5200 ####[facility] [address] [place], [address] Magnesium measurement (mass/ volume)Ordered By: Alex Resendez on 12-03-2024 Magnesium (Unsp spec) [Mass/Vol] 2.5 mg/dL High 1.5-2.2 [facility] Mucus LM Ql (Urine sed)Order ed By: Alex Resendez on 08-03-2025 Mucus Ql (Urine sed) 0 SEEN /hpf [facility] Nitrite Test strip Ql (U)Ord ered By: Alex Resendez on 12-03-2024 Nitrite Ql (U) Negative Negative [facility] No Panel InformationOrdered By: Alex Resendez on 12-03-2024 134 U/L High <38 [facility] Phosphoruson 12-03-2024 Phosphate [Mass/Vol] 3.4 mg/dL Normal 2.7-4.5 [facility] Comment on above: Performed By: #### L 100.0100, L500.4050, L501.2300, L501.5200 ####[facility] [address] [place], [address] Protein Test strip Ql (U)Ord ered By: Alex Resendez on 12-03-2024 Protein Ql (U) 15 mg/dl High Negative [facility] Serum globulin measurementOr dered By: Alex Resendez on 12-03-2024 Globulin (S) [Mass/Vol] 2.8 g/dL 2.2-4.2 [facility] Serum or plasma alanine guerrero otransferase (ALT) measurementOrdered By: Alex Resendez on 12-03-2024 ALT [Catalytic activity/Vol] 47 U/L <47 [facility] Serum or plasma albumin francine urement (mass/volume)Ordered By: Alex Resendez on 12-03-2024 Albumin [Mass/Vol] 3.4 g/dL 3.4-4.8 [facility] Serum or plasma albumin/glob ulin mass ratioOrdered By: Alex Resendez on 12-03-2024 Albumin/Globulin [Mass ratio] 1.2 {ratio} 0.9-2.4 [facility] Serum or plasma alkaline bell sphatase measurementOrdered By: Alex Resendez on 12-03-2024 ALP [Catalytic activity/Vol] 94 U/L 40-129 [facility] Squamous epithelial cells de tection in urine sediment by light microscopyOrdered By: Alex Resendez on 12-03-2024 Epithelial cells.squamous LM Ql (Urine sed) 0 SEEN /hpf 0-5 [facility] Total proteinOrdered By: Yoseph Resendez on 12-03-2024 Protein [Mass/Vol] 6.3 g/dL 5.9-8.4 [facility] Troponin T HS 2 HRon 025 Trop T High Sen > [address]65 Invalid Interpretation Code <=22 [facility] Comment on above: Result Comment: Crit ical Result(s) Called at:0007 by:??KEIKO BABB Results read back by same. Performed By: #### L 499.0042 ####[facility] [address] [place], [address] Troponin T HS 4 HRon 025 Trop T High Sen > [address]64 Invalid Interpretation Code <=22 [facility] Comment on above: Result Comment: Crit ical Result(s) Called at: 0240 by:??KEIKO HOOPER Results read back by same. Performed By: #### L 499.0043 ####[facility] [address] [place], [address] Troponin T.cardiac [Mass/vol ume] in Serum or Plasma by High sensitivity methodOrdered By: Rasheed Canela on 12-03-2024 Troponin T.cardiac High sensitivity method [Mass/Vol] > 38712 ng/L High <22 [facility] Urinalysis, Completeon 12-03 BACTERIA 0 SEEN Normal None Seen [facility] Comment on above: Order Comment: CLEAN CATCH Performed By: #### L 400.0001 ####[facility] [address] [place], [address] EPI,SQUAMOUS 0 SEEN Normal 0-5 [facility] Comment on above: Order Comment: CLEAN CATCH Performed By: #### L 400.0001 ####[facility] [address] [place], [address] Mucus Ql (Urine sed) 0 SEEN Normal [facility] Comment on above: Order Comment: CLEAN CATCH Performed By: #### L 400.0001 ####[facility] [address] [place], [address] RBC 0 SEEN Normal 0-5 [facility] Comment on above: Order Comment: CLEAN CATCH Performed By: #### L 400.0001 ####[facility] [address] [place], [address] WBC 0 SEEN Normal 0-5 [facility] Comment on above: Order Comment: CLEAN CATCH Performed By: #### L 400.0001 ####[facility] [address] [place], [address] Urine clarityOrdered By: Yoseph Resendez on 12-03-2024 Clarity (U) Clear Clear [facility] Urine color determinationOrd ered By: Alex Resendez on 12-03-2024 Color (U) Yellow Yellow [facility] Urine glucose detectionOrder ed By: Alex Resendez on 12-03-2024 Glucose Ql (U) Normal mg/dl Normal [facility] Urine leukocyte esterase det ection by dipstickOrdered By: Alex Resendez on 12-03-2024 Leukocyte esterase Test strip Ql (U) Negative Negative [facility] Urine pHOrdered By: Alex best on 12-03-2024 pH (U) 6.0 [pH] 5.0 - 8.0 [facility] Urine sediment bacteria coun t by microscopy (number/high power field)Ordered By: Alex Resendez on 12-03-2024 Bacteria LM.HPF (Urine sed) [#/Area] 0 /[HPF] None Seen [facility] Urine specific gravity measu rementOrdered By: Alex Resendez on 12-03-2024 Specific gravity (U) [Rel density] 1.015 1.002-1.[address] [facility] Urine urobilinogen measureme ntOrdered By: Alex Resendez on 12-03-2024 Urobilinogen Ql (U) Normal mg/dl Normal [facility] White blood cell countOrdere d By: Alex Resendez on 12-03-2024 White blood cell count 0 SEEN /hpf 0-5 [facility] 12 Lead EKGon 12-02-2024 [address] [facility] ACT Activated Clotting Timeo n 12-02-2024 ACTk CLOT TIME 245 sec High 74-137 [facility] Comment on above: Performed By: #### L 9100.0100 ####[facility] [address] [place], [address] Absolute lymphocyte countOrd ered By: Rasheed Canela on 12-02-2024 Lymphocytes Auto (Unsp spec) [#/Vol] 1.13 10*3/uL 0.83-4.51 [facility] Absolute lymphocyte countOrd ered By: Nickie Danielson on 12-02-2024 Lymphocytes Auto (Unsp spec) [#/Vol] 0.85 10*3/uL 0.83-4.51 [facility] Activated partial thrombopla stin time (aPTT) in platelet poor plasma by coagulation aOrdered By: Rasheed Canela on 12-02-2024 aPTT Coag (PPP) [Time] 31.6 s 24.1-36.2 [facility] Anion gap in Serum or Plasma Ordered By: Rasheed Canela on 12-02-2024 Anion gap [Moles/Vol] 14 mmol/L 09-[address] [facility] Anion gap in Serum or Plasma Ordered By: Nickie Danielson on 12-02-2024 Anion gap [Moles/Vol] 14 mmol/L 09-[address] [facility] Automated lymphocyte count a s percentage of total leukocytesOrdered By: Rasheed Canela on 12-02-2024 Lymphocytes/100 WBC Auto (Unsp spec) 8.9 % Low [facility] Automated lymphocyte count a s percentage of total leukocytesOrdered By: Nickie Danielson on 12-02-2024 Lymphocytes/100 WBC Auto (Unsp spec) 7.6 % Low [facility] BUN/creatinine ratioOrdered By: Rasheed Canela on 12-02-2024 Urea nitrogen/Creatinine [Mass ratio] 18.0 mg/mg 02-19 [facility] BUN/creatinine ratioOrdered By: Nickie Danielson on 12-02-2024 Urea nitrogen/Creatinine [Mass ratio] 17.2 mg/mg 02-19 [facility] Basic Metabolic Profile (BMP )on 12-02-2024 BUN/CRE 18.0 RATIO Normal 10-20 [facility] Comment on above: Performed By: #### L 300.4310, L501.4021, L300.3900, L500.2500, L100.0100 ####[facility] [address] [place], [address] Calcium [Mass/Vol] 9.1 mg/dL Normal 7.6-11.0 [facility] Comment on above: Performed By: #### L 300.4310, L501.4021, L300.3900, L500.2500, L100.0100 ####[facility] [address] [place], [address] Chloride [Moles/Vol] 96 mmol/L Low 98-108 [facility] Comment on above: Performed By: #### L 300.4310, L501.4021, L300.3900, L500.2500, L100.0100 ####[facility] [address] [place], [address] CO2 [Moles/Vol] 20.5 mmol/L Low 21.0-32.0 [facility] Comment on above: Performed By: #### L 300.4310, L501.4021, L300.3900, L500.2500, L100.0100 ####[facility] [address] [place], [address] Creatinine [Mass/Vol] 2.90 mg/dL High 0.70-1.[address] [facility] Comment on above: Performed By: #### L 300.4310, L501.4021, L300.3900, L500.2500, L100.0100 ####[facility] [address] [place], [address] ECRCL 25.31 ml/min Low 50-250 [facility] Comment on above: Performed By: #### L 300.4310, L501.4021, L300.3900, L500.2500, L100.0100 ####[facility] [address] [place], [address] GAP 14 Normal 5-15 [facility] Comment on above: Performed By: #### L 300.4310, L501.4021, L300.3900, L500.2500, L100.0100 ####[facility] [address] [place], [address] GFR/1.73 sq M.predicted among non-blacks MDRD (S/P/Bld) [Vol rate/Area] 21 mL/min/{1.73_m2} Low >60 [facility] Comment on above: Result Comment: mL/m in/1.73m2 CKD-EPI Creatinine Equation (2020) Performed By: #### L 300.4310, L501.4021, L300.3900, L500.2500, L100.0100 ####[facility] [address] [place], [address] Glucose [Mass/Vol] 175 mg/dL High 70-99 [facility] Comment on above: Performed By: #### L 300.4310, L501.4021, L300.3900, L500.2500, L100.0100 ####[facility] [address] [place], [address] Potassium [Moles/Vol] 4.6 mmol/L Normal 3.3-5.[address] [facility] Comment on above: Performed By: #### L 300.4310, L501.4021, L300.3900, L500.2500, L100.0100 ####[facility] [address] [place], [address] Sodium [Moles/Vol] 131 mmol/L Low 133-145 [facility] Comment on above: Performed By: #### L 300.4310, L501.4021, L300.3900, L500.2500, L100.0100 ####[facility] [address] [place], [address] Urea nitrogen [Mass/Vol] 52 mg/dL High 4-19 [facility] Comment on above: Performed By: #### L 300.4310, L501.4021, L300.3900, L500.2500, L100.0100 ####[facility] [address] [place], [address] BUN/CRE 17.2 RATIO Normal 10-20 [facility] Comment on above: Performed By: #### L 500.2500, L100.0100 ####[facility] [address] [place], [address] Calcium [Mass/Vol] 9.3 mg/dL Normal 7.6-11.0 [facility] Comment on above: Performed By: #### L 500.2500, L100.0100 ####[facility] [address] [place], [address] Chloride [Moles/Vol] 99 mmol/L Normal 98-108 [facility] Comment on above: Performed By: #### L 500.2500, L100.0100 ####[facility] [address] [place], [address] CO2 [Moles/Vol] 20.6 mmol/L Low 21.0-32.0 [facility] Comment on above: Performed By: #### L 500.2500, L100.0100 ####[facility] [address] [place], [address] Creatinine [Mass/Vol] 2.93 mg/dL High 0.70-1.[address] [facility] Comment on above: Performed By: #### L 500.2500, L100.0100 ####[facility] [address] [place], [address] ECRCL 24.95 ml/min Low 50-250 [facility] Comment on above: Performed By: #### L 500.2500, L100.0100 ####[facility] [address] [place], [address] GAP 14 Normal 5-15 [facility] Comment on above: Performed By: #### L 500.2500, L100.0100 ####[facility] [address] [place], [address] GFR/1.73 sq M.predicted among non-blacks MDRD (S/P/Bld) [Vol rate/Area] 21 mL/min/{1.73_m2} Low >60 [facility] Comment on above: Result Comment: mL/m in/1.73m2 CKD-EPI Creatinine Equation (2020) Performed By: #### L 500.2500, L100.0100 ####[facility] [address] [place], [address] Glucose [Mass/Vol] 138 mg/dL High 70-99 [facility] Comment on above: Performed By: #### L 500.2500, L100.0100 ####[facility] [address] [place], [address] Potassium [Moles/Vol] 4.8 mmol/L Normal 3.3-5.[address] [facility] Comment on above: Performed By: #### L 500.2500, L100.0100 ####[facility] [id number] [place], [address] Sodium [Moles/Vol] 133 mmol/L Normal 133-145 [facility] Comment on above: Performed By: #### L 500.2500, L100.0100 ####[facility] [id number] [place], [address] Urea nitrogen [Mass/Vol] 50 mg/dL High 4-19 [facility] Comment on above: Performed By: #### L 500.2500, L100.0100 ####[facility] [address] [place], [place], [address] Basophil percentageOrdered B y: Rasheed Canela on 12-02-2024 Basophils/100 WBC (Bld) 0.3 % 0-1 [facility] Basophil percentageOrdered B y: Nickie Danielson on 12-02-2024 Basophils/100 WBC (Bld) 0.1 % 0-1 [facility] Bedside Glucoseon 12-02-2024 FINGERSTICK GLU 129 mg/dL High 74-106 [facility] Comment on above: Result Comment: WILDA BARROSO OF PATIENT CARE PER NURSING PROTOCOL Performed By: #### L 501.080 ####[facility] [address] [place], [address] Blood manual differential co mment interpretation (narrative result)Ordered By: Rasheed Canela on 12-02-2024 Manual differential comment Luis Manuel (Bld) [Interp] SCANNED [facility] Brain without Contraston Brain without Contrast Normal [facility] CBC W/Diff, Automatedon PLT EST SLT DEC Normal ADEQ [facility] Comment on above: Performed By: #### L 300.4310, L501.4021, L300.3900, L500.2500, L100.0100 ####[facility] [address] [place], [address] SMEAR COMMENT SCANNED Normal [facility] Comment on above: Performed By: #### L 300.4310, L501.4021, L300.3900, L500.2500, L100.0100 ####[facility] [address] [place], [address] Absolute Lymph 0.85 X10 3/uL Normal 0.83-4.51 [facility] Comment on above: Performed By: #### L 500.2500, L100.0100 ####[facility] [address] [place], [address] Absolute Neut 8.8 X10 3/uL High 2.0-7.7 [facility] Comment on above: Performed By: #### L 500.2500, L100.0100 ####[facility] [address] [place], [address] Basophils/100 WBC (Bld) 0.1 % Normal 0-1 [facility] Comment on above: Performed By: #### L 500.2500, L100.0100 ####[facility] [address] [place], [address] Eosinophils/100 WBC (Bld) 0.7 % Normal 0-5 [facility] Comment on above: Performed By: #### L 500.2500, L100.0100 ####[facility] [address] [place], [address] Erythrocyte distribution width (RBC) [Ratio] 14.4 % Normal 11.6-14.6 [facility] Comment on above: Performed By: #### L 500.2500, L100.0100 ####[facility] [address] [place], [address] Hematocrit (Bld) [Volume fraction] 32.1 % Low 40-54 [facility] Comment on above: Performed By: #### L 500.2500, L100.0100 ####[facility] [address] [place], [address] Hemoglobin (Bld) [Mass/Vol] 10.4 g/dL Low 13.0-16.5 [facility] Comment on above: Performed By: #### L 500.2500, L100.0100 ####[facility] [address] [place], [address] IG% 0.700 Normal 0.0-0.9 [facility] Comment on above: Result Comment: IG% - Immature Granulocytes (promyelocytes, myelocytes andmetamyelocytes) > 1% indicates that a LEFT SHIFT is Present. Performed By: #### L 500.2500, L100.0100 ####[facility] [address] [place], [address] Lymphocytes/100 WBC (Bld) 7.6 % Low 19-41 [facility] Comment on above: Performed By: #### L 500.2500, L100.0100 ####[facility] [address] [place], [address] MCH (RBC) [Entitic mass] 29.5 pg Normal 27.0-32.0 [facility] Comment on above: Performed By: #### L 500.2500, L100.0100 ####[facility] [address] [place], [address] MCHC (RBC) [Mass/Vol] 32.4 g/dL Normal 32-[address] [facility] Comment on above: Performed By: #### L 500.2500, L100.0100 ####[facility] [address] [place], [address] MCV (RBC) [Entitic vol] 91.2 fL Normal 80-94 [facility] Comment on above: Performed By: #### L 500.2500, L100.0100 ####[facility] [address] [place], [address] Monocytes/100 WBC (Bld) 12.0 % High 0-10 [facility] Comment on above: Performed By: #### L 500.2500, L100.0100 ####[facility] [address] [place], [address] Neutrophils/100 WBC (Bld) 78.9 % High 47-70 [facility] Comment on above: Performed By: #### L 500.2500, L100.0100 ####[facility] [address] [place], [address] Nucleated RBC (Bld) [#/Vol] 0 10*3/uL Normal 0-5 [facility] Comment on above: Performed By: #### L 500.2500, L100.0100 ####[facility] [address] [place], [address] Platelet mean volume (Bld) [Entitic vol] 13.1 fL High 6.2-12.0 [facility] Comment on above: Performed By: #### L 500.2500, L100.0100 ####[facility] [address] [place], [address] Platelets (Bld) [#/Vol] 113 10*3/uL Low 150-450 [facility] Comment on above: Performed By: #### L 500.2500, L100.0100 ####[facility] [address] [place], [address] RBC (Bld) [#/Vol] 3.52 10*6/uL Low 4.6-6.2 [facility] Comment on above: Performed By: #### L 500.2500, L100.0100 ####[facility] [address] [place], [address] RDW SD 47.4 fl High 35.1-43.9 [facility] Comment on above: Performed By: #### L 500.2500, L100.0100 ####[facility] [address] [place], [address] WBC (Bld) [#/Vol] 11.2 10*3/uL High 4.4-11.0 [facility] Comment on above: Performed By: #### L 500.2500, L100.0100 ####[facility] [address] [place], [address] CVS/PCIREPORTon 12-02-2024 CVS/PCIREPORT Normal [facility] Carbon dioxide, total [Moles /volume] in Central venous bloodOrdered By: Rasheed Canela on 12-02-2024 CO2 [Moles/Vol] 20.5 mmol/L Low 21.0-32.0 [facility] Carbon dioxide, total [Moles /volume] in Central venous bloodOrdered By: Nickie Danielson on 12-02-2024 CO2 [Moles/Vol] 20.6 mmol/L Low 21.0-32.0 [facility] Chloride assayOrdered By: Afshin o Canela on 12-02-2024 Chloride [Moles/Vol] 96 mmol/L Low 98-108 [facility] Chloride assayOrdered By: Korina Danielson on 12-02-2024 Chloride [Moles/Vol] 99 mmol/L 98-108 [facility] Emergency Department Summary on 12-02-2024 [address] Normal [facility] Eosinophil percentageOrdered By: Rasheed Hilton on 12-02-2024 Eosinophils/100 WBC (Bld) 0.8 % 0-5 [facility] Eosinophil percentageOrdered By: Nickie Danielson on 12-02-2024 Eosinophils/100 WBC (Bld) 0.7 % 0-5 [facility] Erythrocyte distribution wid th ratioOrdered By: Rasheed Canela on 12-02-2024 Erythrocyte distribution width (RBC) [Ratio] 14.1 % 11.6-14.6 [facility] Erythrocyte distribution wid th ratioOrdered By: Nickie Danielson on 12-02-2024 Erythrocyte distribution width (RBC) [Ratio] 14.4 % 11.6-14.6 [facility] Erythrocyte distribution wid th standard deviationOrdered By: Rasheed Hilton on 12-02-2024 Erythrocyte distribution width (RBC) [Ratio] 45.8 fl High 35.1-43.9 [facility] Erythrocyte distribution wid th standard deviationOrdered By: Nickie Danielson on 12-02-2024 Erythrocyte distribution width (RBC) [Ratio] 47.4 fl High 35.1-43.9 [facility] Glomerular filtration rate ( GFR) estimation/1.73 sq m using serum, plasma, or whole bOrdered By: Rasheed Canela on 12-02-2024 GFR/1.73 sq M.predicted among non-blacks MDRD (S/P/Bld) [Vol rate/Area] 21 mL/min/{1.73_m2} Low >60 [facility] Glomerular filtration rate ( GFR) estimation/1.73 sq m using serum, plasma, or whole bOrdered By: Nickie Danielson on 12-02-2024 GFR/1.73 sq M.predicted among non-blacks MDRD (S/P/Bld) [Vol rate/Area] 21 mL/min/{1.73_m2} Low >60 [facility] deOrdered By: Nickie Danielson on 12-02-2024 Glucose [Mass/Vol] 200 mg/dL High 74-106 [facility] Glucose [Mass/Vol] 129 mg/dL High 74-106 [facility] H AND P Exam - Hospitaliston 12-02-2024 H&P Exam - Hospitalist Normal [facility] Hematocrit Auto (Bld) [Volum e fraction]Ordered By: Rasheed Canela on 12-02-2024 Hematocrit (Bld) [Volume fraction] 34.1 % Low 40-54 [facility] Hematocrit Auto (Bld) [Volum e fraction]Ordered By: Nickie Danielson on 12-02-2024 Hematocrit (Bld) [Volume fraction] 32.1 % Low 40-54 [facility] Hemoglobin measurementOrdere d By: Rasheed Canela on 12-02-2024 Hemoglobin (Bld) [Mass/Vol] 11.1 g/dL Low 13.0-16.5 [facility] Hemoglobin measurementOrdere d By: Nickie Danielson on 12-02-2024 Hemoglobin (Bld) [Mass/Vol] 10.4 g/dL Low 13.0-16.5 [facility] Immature granulocytes/100 WB C Auto (Bld)Ordered By: Rasheed Canela on 12-02-2024 Immature granulocytes/100 WBC (Bld) 0.600 % 0.0-0.9 [facility] Immature granulocytes/100 WB C Auto (Bld)Ordered By: Nickie Danielson on 12-02-2024 Immature granulocytes/100 WBC (Bld) 0.700 % 0.0-0.9 [facility] L501.4021on 12-02-2024 Trop T High Sen > [address]235 Invalid Interpretation Code <=22 [facility] Comment on above: Result Comment: Crit ical Result(s) Called at: 2120 by: MOISE MENDIOLA??Results read back by same. Performed By: #### L 300.4310, L501.4021, L300.3900, L500.2500, L100.0100 ####[facility] [address] [place], [address] MCV (mean corpuscular volume ) determinationOrdered By: Rasheed Canela on 12-02-2024 MCV (RBC) [Entitic vol] 89.5 fL 80-94 [facility] MCV (mean corpuscular volume ) determinationOrdered By: Nickie Danielson on 12-02-2024 MCV (RBC) [Entitic vol] 91.2 fL 80-94 [facility] MR/CON.PCM.NEon 12-02-2024 MR/CON.PCM.NE Normal [facility] MRA Head ONLY without Contra ston 12-02-2024 MRA Head ONLY without Contrast Normal [facility] MRA Neck without Contraston 12-02-2024 MRA Neck without Contrast Normal [facility] Magnetic resonance imaging r eportOrdered By: Nghia Waters on 12-02-[address] [facility] Mean corpuscular hemoglobin (MCH) determinationOrdered By: Rasheed Canela on 12-02-2024 MCH (RBC) [Entitic mass] 29.1 pg 27.0-32.0 [facility] Mean corpuscular hemoglobin (MCH) determinationOrdered By: Nickie Danielson on 12-02-2024 MCH (RBC) [Entitic mass] 29.5 pg 27.0-32.0 [facility] Monocyte percentageOrdered B y: Rasheed Canela on 12-02-2024 Monocytes/100 WBC (Bld) 12.7 % High 0-10 [facility] Monocyte percentageOrdered B y: Nickie Danielson on 12-02-2024 Monocytes/100 WBC (Bld) 12.0 % High 0-10 [facility] Neutrophil percentageOrdered By: Rasheed Canela on 12-02-2024 Neutrophils/100 WBC (Bld) 76.7 % High 47-70 [facility] Neutrophil percentageOrdered By: Nickie Danielson on 12-02-2024 Neutrophils/100 WBC (Bld) 78.9 % High 47-70 [facility] Partial Thromboplast Timeon 12-02-2024 aPTT Coag (Bld) [Time] 31.6 s Normal 24.1-36.2 [facility] Comment on above: Performed By: #### L 300.4310, L501.4021, L300.3900, L500.2500, L100.0100 ####[facility] [address] [place], [place], [address] Platelet countOrdered By: Afshin Canela on 12-02-2024 Platelets (Bld) [#/Vol] 134 10*3/uL Low 150-450 [facility] Platelet countOrdered By: Korina Danielson on 12-02-2024 Platelets (Bld) [#/Vol] 113 10*3/uL Low 150-450 [facility] Platelet estimateOrdered By: Rasheed Canela on 12-02-2024 Platelets LM Ql (Bld) SLT DEC ADEQ [facility] Potassium measurement (mass/ volume)Ordered By: Rasheed Canela on 12-02-2024 Potassium (Unsp spec) [Mass/Vol] 4.6 mmol/L 3.3-5.1 [facility] Potassium measurement (mass/ volume)Ordered By: Nickie Danielson on 12-02-2024 Potassium (Unsp spec) [Mass/Vol] 4.8 mmol/L 3.3-5.1 [facility] Prothrombin Time w/INRon INR Coag (PPP) [Relative time] 1.1 {INR} Normal [facility] Comment on above: Performed By: #### L 300.4310, L501.4021, L300.3900, L500.2500, L100.0100 ####[facility] [address] [place], [address] PT Coag (PPP) [Time] 14.6 s Normal 11.7-14.9 [facility] Comment on above: Performed By: #### L 300.4310, L501.4021, L300.3900, L500.2500, L100.0100 ####[facility] [address] [place], [address] Prothrombin timeOrdered By: Rasheed Canela on 12-02-2024 PT Coag (PPP) [Time] 14.6 s 11.7-14.9 [facility] RBC Auto (Bld) [#/Vol]Ordere d By: Rasheed Canela on 12-02-2024 RBC (Bld) [#/Vol] 3.81 10*6/uL Low 4.6-6.2 [facility] RBC Auto (Bld) [#/Vol]Ordere d By: Nickie Danielson on 12-02-2024 RBC (Bld) [#/Vol] 3.52 10*6/uL Low 4.6-6.2 [facility] Serum creatinine measurement (mass/volume)Ordered By: Rasheed Canela on 12-02-2024 Creatinine [Mass/Vol] 2.90 mg/dL High 0.70-1.[address] [facility] Serum creatinine measurement (mass/volume)Ordered By: Nickie Danielson on 12-02-2024 Creatinine [Mass/Vol] 2.93 mg/dL High 0.70-1.[address] [facility] Serum glucose measurement (m ass/volume)Ordered By: Rasheed Canela on 12-02-2024 Glucose [Mass/Vol] 175 mg/dL High 70-99 [facility] Serum glucose measurement (m ass/volume)Ordered By: Nickie Danielson on 12-02-2024 Glucose [Mass/Vol] 138 mg/dL High 70-99 [facility] Serum or plasma calcium francine urement (mass/volume)Ordered By: Rasheed Canela on 12-02-2024 Calcium [Mass/Vol] 9.1 mg/dL 7.6-11.0 [facility] Serum or plasma calcium francine urement (mass/volume)Ordered By: Nickie Danielson on 12-02-2024 Calcium [Mass/Vol] 9.3 mg/dL 7.6-11.0 [facility] Serum or plasma urea nitroge n measurement (mass/volume)Ordered By: Rasheed Canela on 12-02-2024 Urea nitrogen [Mass/Vol] 52 mg/dL High 4- [facility] Serum or plasma urea nitroge n measurement (mass/volume)Ordered By: Nickie Danielson on 12-02-2024 Urea nitrogen [Mass/Vol] 50 mg/dL High - [facility] Sodium levelOrdered By: Rasheed Canela on 12-02-2024 Sodium [Moles/Vol] 131 mmol/L Low 133-145 [facility] Sodium levelOrdered By: Johanna Danielson on 12-02-2024 Sodium [Moles/Vol] 133 mmol/L 133-145 [facility] Troponin T.cardiac [Mass/vol ume] in Serum or Plasma by High sensitivity methodOrdered By: Rasheed Canela on 12-02-2024 Troponin T.cardiac High sensitivity method [Mass/Vol] > 38996 ng/L High <22 [facility] Troponin T.cardiac High sensitivity method [Mass/Vol] > 77979 ng/L High <22 [facility] White blood cell (WBC) count Ordered By: Rasheed Canela on 12-02-2024 WBC (Bld) [#/Vol] 12.7 10*3/uL High 4.4-11.0 [facility] White blood cell (WBC) count Ordered By: Nickie Danielson on 12-02-2024 WBC (Bld) [#/Vol] 11.2 10*3/uL High 4.4-11.0 [facility] 12 Lead EKGon 12-01-[address] [facility] Bedside Glucoseon 12-01-2024 FINGERSTICK GLU 148 mg/dL High 74-106 [facility] Comment on above: Result Comment: WILDA BARROSO OF PATIENT CARE PER NURSING PROTOCOL Performed By: #### L 501.080 ####[facility] [address] [place], [address] FINGERSTICK GLU 203 mg/dL High 74-106 [facility] Comment on above: Result Comment: WILDA GEMENT OF PATIENT CARE PER NURSING PROTOCOL Performed By: #### L 501.080 ####[facility] [address] [place], [address] FINGERSTICK GLU 153 mg/dL High 74-106 [facility] Comment on above: Result Comment: WILDA GEMENT OF PATIENT CARE PER NURSING PROTOCOL Performed By: #### L 501.080 ####[facility] [address] [place], [address] FINGERSTICK GLU 187 mg/dL High 74-106 [facility] Comment on above: Result Comment: WILDA GEMENT OF PATIENT CARE PER NURSING PROTOCOL Performed By: #### L 501.080 ####[facility] [address] [place], [address] FINGERSTICK GLU 223 mg/dL High 74-106 [facility] Comment on above: Result Comment: WILDA GEMENT OF PATIENT CARE PER NURSING PROTOCOL Performed By: #### L 501.080 ####[facility] [address] [place], [address] Bilirubin, totalOrdered By: Jose Hay on 12-01-2024 Bilirubin [Mass/Vol] 1.07 mg/dL 0.00-1.30 [facility] CBC-Complete Blood Cnt No Di ffon 12-01-2024 Erythrocyte distribution width (RBC) [Ratio] 14.0 % Normal 11.6-14.6 [facility] Comment on above: Performed By: #### L 100.0500, L500.4050 ####[facility] [address] [place], [address] Hematocrit (Bld) [Volume fraction] 33.2 % Low 40-54 [facility] Comment on above: Performed By: #### L 100.0500, L500.4050 ####[facility] [address] [place], [address] Hemoglobin (Bld) [Mass/Vol] 10.8 g/dL Low 13.0-16.5 [facility] Comment on above: Performed By: #### L 100.0500, L500.4050 ####[facility] [address] [place], [address] MCH (RBC) [Entitic mass] 29.3 pg Normal 27.0-32.0 [facility] Comment on above: Performed By: #### L 100.0500, L500.4050 ####[facility] [address] [place], [address] MCHC (RBC) [Mass/Vol] 32.5 g/dL Normal 32-[address] [facility] Comment on above: Performed By: #### L 100.0500, L500.4050 ####[facility] [address] [place], [address] MCV (RBC) [Entitic vol] 90.2 fL Normal 80-94 [facility] Comment on above: Performed By: #### L 100.0500, L500.4050 ####[facility] [address] [place], [address] Platelet mean volume (Bld) [Entitic vol] 12.7 fL High 6.2-12.0 [facility] Comment on above: Performed By: #### L 100.0500, L500.4050 ####[facility] [address] [place], [address] Platelets (Bld) [#/Vol] 142 10*3/uL Low 150-450 [facility] Comment on above: Performed By: #### L 100.0500, L500.4050 ####[facility] [address] [place], [address] RBC (Bld) [#/Vol] 3.68 10*6/uL Low 4.6-6.2 [facility] Comment on above: Performed By: #### L 100.0500, L500.4050 ####[facility] [address] [place], [address] RDW SD 45.8 fl High 35.1-43.9 [facility] Comment on above: Performed By: #### L 100.0500, L500.4050 ####[facility] [address] [place], [address] WBC (Bld) [#/Vol] 14.6 10*3/uL High 4.4-11.0 [facility] Comment on above: Performed By: #### L 100.0500, L500.4050 ####[facility] [address] [place], [address] Cardiac rehabilitation repor tOrdered By: Natacha Fermin on 12-01-[address] [facility] Comprehensive Metabolic Prof ilon 12-01-2024 Albumin [Mass/Vol] 3.7 g/dL Normal 3.4-4.8 [facility] Comment on above: Performed By: #### L 100.0500, L500.4050 ####[facility] [address] [place], [address] Albumin/Globulin [Mass ratio] 1.5 {ratio} Normal 0.9-2.4 [facility] Comment on above: Performed By: #### L 100.0500, L500.4050 ####[facility] [address] [place], [address] ALK PHOS 82 U/L Normal 40-129 [facility] Comment on above: Performed By: #### L 100.0500, L500.4050 ####[facility] [address] [place], [address] ALT [Catalytic activity/Vol] 77 U/L High <=46 [facility] Comment on above: Performed By: #### L 100.0500, L500.4050 ####[facility] [address] [place], [address] AST [Catalytic activity/Vol] 497 U/L High <=37 [facility] Comment on above: Performed By: #### L 100.0500, L500.4050 ####[facility] [address] [place], [address] Bilirubin [Mass/Vol] 1.07 mg/dL Normal 0.00-1.30 [facility] Comment on above: Performed By: #### L 100.0500, L500.4050 ####[facility] [address] [place], [address] BUN/CRE 14.2 RATIO Normal 10-20 [facility] Comment on above: Performed By: #### L 100.0500, L500.4050 ####[facility] [address] [place], [address] Calcium [Mass/Vol] 8.7 mg/dL Normal 7.6-11.0 [facility] Comment on above: Performed By: #### L 100.0500, L500.4050 ####[facility] [address] [place], [address] Chloride [Moles/Vol] 100 mmol/L Normal 98-108 [facility] Comment on above: Performed By: #### L 100.0500, L500.4050 ####[facility] [address] [place], [address] CO2 [Moles/Vol] 20.3 mmol/L Low 21.0-32.0 [facility] Comment on above: Performed By: #### L 100.0500, L500.4050 ####[facility] [address] [place], [address] Creatinine [Mass/Vol] 3.16 mg/dL High 0.70-1.[address] [facility] Comment on above: Performed By: #### L 100.0500, L500.4050 ####[facility] [address] [place], [address] ECRCL 23.23 ml/min Low 50-250 [facility] Comment on above: Performed By: #### L 100.0500, L500.4050 ####[facility] [address] [place], [address] GAP 14 Normal 5-15 [facility] Comment on above: Performed By: #### L 100.0500, L500.4050 ####[facility] [address] [place], [address] GFR/1.73 sq M.predicted among non-blacks MDRD (S/P/Bld) [Vol rate/Area] 19 mL/min/{1.73_m2} Low >60 [facility] Comment on above: Result Comment: mL/m in/1.73m2 CKD-EPI Creatinine Equation (2020) Performed By: #### L 100.0500, L500.4050 ####[facility] [address] [place], [address] Globulin (S) [Mass/Vol] 2.4 g/dL Normal 2.2-4.2 [facility] Comment on above: Performed By: #### L 100.0500, L500.4050 ####[facility] [address] [place], [address] Glucose [Mass/Vol] 157 mg/dL High 70-99 [facility] Comment on above: Performed By: #### L 100.0500, L500.4050 ####[facility] [address] [place], [address] Potassium [Moles/Vol] 5.0 mmol/L Normal 3.3-5.[address] [facility] Comment on above: Performed By: #### L 100.0500, L500.4050 ####[facility] [address] [place], [address] Sodium [Moles/Vol] 134 mmol/L Normal 133-145 [facility] Comment on above: Performed By: #### L 100.0500, L500.4050 ####[facility] [address] [place], [address] T PROT 6.0 g/dL Normal 5.9-8.4 [facility] Comment on above: Performed By: #### L 100.0500, L500.4050 ####[facility] [address] [place], [address] Urea nitrogen [Mass/Vol] 45 mg/dL High 4-19 [facility] Comment on above: Performed By: #### L 100.0500, L500.4050 ####[facility] [address] [place], [address] Echo Limited w/Contraston Echo Limited w/Contrast Normal [facility] Electrocardiogram reportOrde red By: Marcin Araujo on 12-01-[address] [facility] Work Phone: HH, Hemoglobin AND Hematocri ton 12-01-2024 Hematocrit (Bld) [Volume fraction] 32.7 % Low 40-54 [facility] Comment on above: Performed By: #### L 100.0600 ####[facility] [address] [place], [address] Hemoglobin (Bld) [Mass/Vol] 10.6 g/dL Low 13.0-16.5 [facility] Comment on above: Performed By: #### L 100.0600 ####[facility] [address] [place], [address] Limited echocardiogram repor tOrdered By: Lance Espino on 12-01-[address] [facility] Other Phone: No Panel InformationOrdered By: Jose Hay on 12-01-2024 497 U/L High <38 [facility] STROKE Brain/Head without Co nton 12-01-2024 STROKE Brain/Head without Cont Normal [facility] Serum globulin measurementOr dered By: Jose Hay on 12-01-2024 Globulin (S) [Mass/Vol] 2.4 g/dL 2.2-4.2 [facility] Serum or plasma alanine guerrero otransferase (ALT) measurementOrdered By: Jose Hay on 12-01-2024 ALT [Catalytic activity/Vol] 77 U/L High <47 [facility] Serum or plasma albumin francine urement (mass/volume)Ordered By: Jose Hay on 12-01-2024 Albumin [Mass/Vol] 3.7 g/dL 3.4-4.8 [facility] Serum or plasma albumin/glob ulin mass ratioOrdered By: Jose Hay on 12-01-2024 Albumin/Globulin [Mass ratio] 1.5 {ratio} 0.9-2.4 [facility] Serum or plasma alkaline bell sphatase measurementOrdered By: Jose Hay on 12-01-2024 ALP [Catalytic activity/Vol] 82 U/L 40-129 [facility] Total proteinOrdered By: Emmanuel Hay on 12-01-2024 Protein [Mass/Vol] 6.0 g/dL 5.9-8.4 [facility] 12 Lead EKGon 11-30-2024 [address] [facility] ACT Activated Clotting Timeo n 11-30-2024 ACTk CLOT TIME 187 sec High 74-137 [facility] Comment on above: Performed By: #### L 9100.0100 ####[facility] [address] [place], [address] ACTk CLOT TIME 176 sec High 74-137 [facility] Comment on above: Performed By: #### L 9100.0100 ####[facility] [address] [place], [address] Absolute lymphocyte countOrd ered By: Isael Bernabe on 11-30-2024 Lymphocytes Auto (Unsp spec) [#/Vol] 1.93 10*3/uL 0.83-4.51 [facility] Activated partial thrombopla stin time (aPTT) in platelet poor plasma by coagulation aOrdered By: Isael Alexkira on 11-30-2024 aPTT Coag (PPP) [Time] 112.9 s High 24.1-36.2 [facility] Anion gap in Serum or Plasma Ordered By: Iseal Bernabe on 11-30-2024 Anion gap [Moles/Vol] 19 mmol/L High 5-[address] [facility] Automated lymphocyte count a s percentage of total leukocytesOrdered By: Isael Bernabe on 11-30-2024 Lymphocytes/100 WBC Auto (Unsp spec) 10.1 % Low 19-41 [facility] BUN/creatinine ratioOrdered By: Isael Bernabe on 11-30-2024 Urea nitrogen/Creatinine [Mass ratio] 14.4 mg/mg 10- [facility] Basic Metabolic Profile (BMP )on 11-30-2024 BUN/CRE 14.4 RATIO Normal - [facility] Comment on above: Performed By: #### L 501.4021, L300.3900, L300.4310, L100.0100, L500.2500 ####[facility] [address] [place], [address] Calcium [Mass/Vol] 9.5 mg/dL Normal 7.6-11.0 [facility] Comment on above: Performed By: #### L 501.4021, L300.3900, L300.4310, L100.0100, L500.2500 ####[facility] [address] [place], [address] Chloride [Moles/Vol] 98 mmol/L Normal 98-108 [facility] Comment on above: Performed By: #### L 501.4021, L300.3900, L300.4310, L100.0100, L500.2500 ####[facility] [address] [place], [address] CO2 [Moles/Vol] 18.3 mmol/L Low 21.0-32.0 [facility] Comment on above: Performed By: #### L 501.4021, L300.3900, L300.4310, L100.0100, L500.2500 ####[facility] [address] [place], [address] Creatinine [Mass/Vol] 3.10 mg/dL High 0.70-1.[address] [facility] Comment on above: Performed By: #### L 501.4021, L300.3900, L300.4310, L100.0100, L500.2500 ####[facility] [address] [place], [address] GAP 19 High 5-15 [facility] Comment on above: Performed By: #### L 501.4021, L300.3900, L300.4310, L100.0100, L500.2500 ####[facility] [address] [place], [address] GFR/1.73 sq M.predicted among non-blacks MDRD (S/P/Bld) [Vol rate/Area] 20 mL/min/{1.73_m2} Low >60 [facility] Comment on above: Result Comment: mL/m in/1.73m2 CKD-EPI Creatinine Equation (2020) Performed By: #### L 501.4021, L300.3900, L300.4310, L100.0100, L500.2500 ####[facility] [address] [place], [address] Glucose [Mass/Vol] 328 mg/dL High 70-99 [facility] Comment on above: Performed By: #### L 501.4021, L300.3900, L300.4310, L100.0100, L500.2500 ####[facility] [address] [place], [address] Potassium [Moles/Vol] 4.4 mmol/L Normal 3.3-5.[address] [facility] Comment on above: Performed By: #### L 501.4021, L300.3900, L300.4310, L100.0100, L500.2500 ####[facility] [address] [place], [address] Sodium [Moles/Vol] 135 mmol/L Normal 133-145 [facility] Comment on above: Performed By: #### L 501.4021, L300.3900, L300.4310, L100.0100, L500.2500 ####[facility] [address] [place], [address] Urea nitrogen [Mass/Vol] 45 mg/dL High 4-19 [facility] Comment on above: Performed By: #### L 501.4021, L300.3900, L300.4310, L100.0100, L500.2500 ####[facility] [address] [place], [address] Basophil percentageOrdered B y: Isael Bernabe on 11-30-2024 Basophils/100 WBC (Bld) 0.2 % 0-1 [facility] Bedside Glucoseon 11-30-2024 FINGERSTICK GLU 167 mg/dL High 74-106 [facility] Comment on above: Result Comment: WILDA BARROSO OF PATIENT CARE PER NURSING PROTOCOL Performed By: #### L 501.080 ####[facility] [address] [place], [address] CBC W/Diff, Automatedon 07-3 Absolute Lymph 1.93 X10 3/uL Normal 0.83-4.51 [facility] Comment on above: Performed By: #### L 501.4021, L300.3900, L300.4310, L100.0100, L500.2500 ####[facility] [address] [place], [address] Absolute Neut 15.5 X10 3/uL High 2.0-7.7 [facility] Comment on above: Performed By: #### L 501.4021, L300.3900, L300.4310, L100.0100, L500.2500 ####[facility] [address] [place], [address] Basophils/100 WBC (Bld) 0.2 % Normal 0-1 [facility] Comment on above: Performed By: #### L 501.4021, L300.3900, L300.4310, L100.0100, L500.2500 ####[facility] [address] [place], [address] Eosinophils/100 WBC (Bld) 0.4 % Normal 0-5 [facility] Comment on above: Performed By: #### L 501.4021, L300.3900, L300.4310, L100.0100, L500.2500 ####[facility] [address] [place], [address] Erythrocyte distribution width (RBC) [Ratio] 13.5 % Normal 11.6-14.6 [facility] Comment on above: Performed By: #### L 501.4021, L300.3900, L300.4310, L100.0100, L500.2500 ####[facility] [address] [place], [address] Hematocrit (Bld) [Volume fraction] 39.6 % Low 40-54 [facility] Comment on above: Performed By: #### L 501.4021, L300.3900, L300.4310, L100.0100, L500.2500 ####[facility] [address] [place], [address] Hemoglobin (Bld) [Mass/Vol] 12.5 g/dL Low 13.0-16.5 [facility] Comment on above: Performed By: #### L 501.4021, L300.3900, L300.4310, L100.0100, L500.2500 ####[facility] [address] [place], [address] IG% 0.700 Normal 0.0-0.9 [facility] Comment on above: Result Comment: IG% - Immature Granulocytes (promyelocytes, myelocytes andmetamyelocytes) > 1% indicates that a LEFT SHIFT is Present. Performed By: #### L 501.4021, L300.3900, L300.4310, L100.0100, L500.2500 ####[facility] [address] [place], [address] Lymphocytes/100 WBC (Bld) 10.1 % Low 19-41 [facility] Comment on above: Performed By: #### L 501.4021, L300.3900, L300.4310, L100.0100, L500.2500 ####[facility] [address] [place], [address] MCH (RBC) [Entitic mass] 29.3 pg Normal 27.0-32.0 [facility] Comment on above: Performed By: #### L 501.4021, L300.3900, L300.4310, L100.0100, L500.2500 ####[facility] [address] [place], [address] MCHC (RBC) [Mass/Vol] 31.6 g/dL Low 32-[address] [facility] Comment on above: Performed By: #### L 501.4021, L300.3900, L300.4310, L100.0100, L500.2500 ####[facility] [address] [place], [address] MCV (RBC) [Entitic vol] 93.0 fL Normal 80-94 [facility] Comment on above: Performed By: #### L 501.4021, L300.3900, L300.4310, L100.0100, L500.2500 ####[facility] [address] [place], [address] Monocytes/100 WBC (Bld) 7.7 % Normal 0-10 [facility] Comment on above: Performed By: #### L 501.4021, L300.3900, L300.4310, L100.0100, L500.2500 ####[facility] [address] [place], [address] Neutrophils/100 WBC (Bld) 80.9 % High 47-70 [facility] Comment on above: Performed By: #### L 501.4021, L300.3900, L300.4310, L100.0100, L500.2500 ####[facility] [address] [place], [address] Nucleated RBC (Bld) [#/Vol] 0.1 10*3/uL Normal 0-5 [facility] Comment on above: Performed By: #### L 501.4021, L300.3900, L300.4310, L100.0100, L500.2500 ####[facility] [address] [place], [address] Platelet mean volume (Bld) [Entitic vol] 13.7 fL High 6.2-12.0 [facility] Comment on above: Performed By: #### L 501.4021, L300.3900, L300.4310, L100.0100, L500.2500 ####[facility] [address] [place], [address] Platelets (Bld) [#/Vol] 168 10*3/uL Normal 150-450 [facility] Comment on above: Performed By: #### L 501.4021, L300.3900, L300.4310, L100.0100, L500.2500 ####[facility] [address] [place], [address] RBC (Bld) [#/Vol] 4.26 10*6/uL Low 4.6-6.2 [facility] Comment on above: Performed By: #### L 501.4021, L300.3900, L300.4310, L100.0100, L500.2500 ####[facility] [address] [place], [address] RDW SD 45.9 fl High 35.1-43.9 [facility] Comment on above: Performed By: #### L 501.4021, L300.3900, L300.4310, L100.0100, L500.2500 ####[facility] [address] [place], [address] WBC (Bld) [#/Vol] 19.2 10*3/uL High 4.4-11.0 [facility] Comment on above: Performed By: #### L 501.4021, L300.3900, L300.4310, L100.0100, L500.2500 ####[facility] [address] [place], [address] CBC-Complete Blood Cnt No Di ffon 11-30-2024 HCT Normal 40-54 [facility] Comment on above: Result Comment: NO S PECIMEN COLLECTED Performed By: #### L 100.0500 ####[facility] [address] [place], [address] HGB Normal 13.0-16.5 [facility] Comment on above: Result Comment: NO S PECIMEN COLLECTED Performed By: #### L 100.0500 ####[facility] [address] [place], [address] MCH Normal 27.0-32.0 [facility] Comment on above: Result Comment: NO S PECIMEN COLLECTED Performed By: #### L 100.0500 ####[facility] [address] [place], [address] MCHC Normal 32-36 [facility] Comment on above: Result Comment: NO S PECIMEN COLLECTED Performed By: #### L 100.0500 ####[facility] [address] [place], [address] MCV Normal 80-94 [facility] Comment on above: Result Comment: NO S PECIMEN COLLECTED Performed By: #### L 100.0500 ####[facility] [address] [place], [address] PLT Normal 150-450 [facility] Comment on above: Result Comment: NO S PECIMEN COLLECTED Performed By: #### L 100.0500 ####[facility] [address] [place], [address] RBC Normal 4.6-6.2 [facility] Comment on above: Result Comment: NO S PECIMEN COLLECTED Performed By: #### L 100.0500 ####[facility] [address] [place], [address] RDW CV Normal 11.6-14.6 [facility] Comment on above: Result Comment: NO S PECIMEN COLLECTED Performed By: #### L 100.0500 ####[facility] [address] [place], [address] RDW SD Normal 35.1-43.9 [facility] Comment on above: Result Comment: NO S PECIMEN COLLECTED Performed By: #### L 100.0500 ####[facility] [address] [place], [address] WBC Normal 4.4-11.0 [facility] Comment on above: Result Comment: NO S PECIMEN COLLECTED Performed By: #### L 100.0500 ####[facility] [address] [place], [address] Carbon dioxide, total [Moles /volume] in Central venous bloodOrdered By: Isael Bernabe on 11-30-2024 CO2 [Moles/Vol] 18.3 mmol/L Low 21.0-32.0 [facility] Chest 1 View (Portable)on Chest 1 View (Portable) Normal [facility] Chloride assayOrdered By: Jaylen Bernabe on 11-30-2024 Chloride [Moles/Vol] 98 mmol/L 98-108 [facility] Consultation - Cardiologyon 11-30-2024 Consultation - Cardiology Normal [facility] Emergency Department Summary on 11-30-2024 [address] Normal [facility] Eosinophil percentageOrdered By: Isael Bernabe on 11-30-2024 Eosinophils/100 WBC (Bld) 0.4 % 0-5 [facility] Erythrocyte distribution wid th ratioOrdered By: Isael Bernabe on 11-30-2024 Erythrocyte distribution width (RBC) [Ratio] 13.5 % 11.6-14.6 [facility] Erythrocyte distribution wid th standard deviationOrdered By: Isael Bernabe on 11-30-2024 Erythrocyte distribution width (RBC) [Ratio] 45.9 fl High 35.1-43.9 [facility] Glomerular filtration rate ( GFR) estimation/1.73 sq m using serum, plasma, or whole bOrdered By: Isael Bernabe on 11-30-2024 GFR/1.73 sq M.predicted among non-blacks MDRD (S/P/Bld) [Vol rate/Area] 20 mL/min/{1.73_m2} Low >60 [facility] H AND P Exam - Hospitaliston 11-30-2024 H&P Exam - Hospitalist Normal [facility] Hematocrit Auto (Bld) [Volum e fraction]Ordered By: Isael Bernabe on 11-30-2024 Hematocrit (Bld) [Volume fraction] 39.6 % Low 40-54 [facility] Hemoglobin A1con 11-30-2024 HbA1c (Bld) [Mass fraction] 7.0 % High <=5.6 [facility] Comment on above: Result Comment: Norm al < 5.7 % Prediabetic 5.7 - 6.4 % Diabetic >or= 6.5 % Please note range changes. Performed By: #### L 501.9985 ####[facility] [address] [place], [place], [address] Hemoglobin A1c percentageOrd ered By: Abraham rohit on 11-30-2024 HbA1c (Bld) [Mass fraction] 7.0 % High <5.7 [facility] Hemoglobin measurementOrdere d By: Isael Bernabe on 11-30-2024 Hemoglobin (Bld) [Mass/Vol] 12.5 g/dL Low 13.0-16.5 [facility] Immature granulocytes/100 WB C Auto (Bld)Ordered By: Isael Bernabe on 11-30-2024 Immature granulocytes/100 WBC (Bld) 0.700 % 0.0-0.9 [facility] L501.4021on 11-30-2024 Trop T High Sen 61 ng/L Invalid Interpretation Code <=22 [facility] Comment on above: Result Comment: Crit ical Result(s) Called at: 1621 by: MOISE MEDINA??Results read back by same. Performed By: #### L 501.4021, L300.3900, L300.4310, L100.0100, L500.2500 ####[facility] [address] [place], [place], [id number] MCV (mean corpuscular volume ) determinationOrdered By: Isael Bernabe on 11-30-2024 MCV (RBC) [Entitic vol] 93.0 fL 80-94 [facility] MR/QUALITYon 11-30-2024 MR/QUALITY Normal [facility] Mean corpuscular hemoglobin (MCH) determinationOrdered By: Isael Bernabe on 11-30-2024 MCH (RBC) [Entitic mass] 29.3 pg 27.0-32.0 [facility] Monocyte percentageOrdered B y: Isael Bernabe on 11-30-2024 Monocytes/100 WBC (Bld) 7.7 % 0-10 [facility] Neutrophil percentageOrdered By: Isael Bernabe on 11-30-2024 Neutrophils/100 WBC (Bld) 80.9 % High 47-70 [facility] Partial Thromboplast Timeon 11-30-2024 aPTT Coag (Bld) [Time] 112.9 s Invalid Interpretation Code 24.1-36.2 [facility] Comment on above: Result Comment: CRIT ICAL VALUE CALLED TO CAITLIN ANTOINE11/30/24 1720 Krysta Turcios.RESULTS READ BACK BY SAME. Performed By: #### L 501.4021, L300.3900, L300.4310, L100.0100, L500.2500 ####[facility] [address] [place], [address] Platelet countOrdered By: Jaylen Bernabe on 11-30-2024 Platelets (Bld) [#/Vol] 168 10*3/uL 150-450 [facility] Potassium measurement (mass/ volume)Ordered By: Isael Bernabe on 11-30-2024 Potassium (Unsp spec) [Mass/Vol] 4.4 mmol/L 3.3-5.1 [facility] Prothrombin Time w/INRon INR Coag (PPP) [Relative time] 1.3 {INR} Normal [facility] Comment on above: Performed By: #### L 501.4021, L300.3900, L300.4310, L100.0100, L500.2500 ####[facility] [address] [place], [address] PT Coag (PPP) [Time] 16.1 s High 11.7-14.9 [facility] Comment on above: Performed By: #### L 501.4021, L300.3900, L300.4310, L100.0100, L500.2500 ####[facility] [address] [place], [address] Prothrombin timeOrdered By: Isael Bernabe on 11-30-2024 PT Coag (PPP) [Time] 16.1 s High 11.7-14.9 [facility] RBC Auto (Bld) [#/Vol]Ordere d By: Isael Bernabe on 11-30-2024 RBC (Bld) [#/Vol] 4.26 10*6/uL Low 4.6-6.2 [facility] Serum creatinine measurement (mass/volume)Ordered By: Isael Bernabe on 11-30-2024 Creatinine [Mass/Vol] 3.10 mg/dL High 0.70-1.[address] [facility] Serum glucose measurement (m ass/volume)Ordered By: Isael Bernabe on 11-30-2024 Glucose [Mass/Vol] 328 mg/dL High 70-99 [facility] Serum or plasma calcium francine urement (mass/volume)Ordered By: Isael Bernabe on 11-30-2024 Calcium [Mass/Vol] 9.5 mg/dL 7.6-11.0 [facility] Serum or plasma urea nitroge n measurement (mass/volume)Ordered By: Isael Bernabe on 11-30-2024 Urea nitrogen [Mass/Vol] 45 mg/dL High 4-19 [facility] Sodium levelOrdered By: Isael Bernabe on 11-30-2024 Sodium [Moles/Vol] 135 mmol/L 133-145 [facility] Troponin T HS 2 HRon 025 Trop T High Sen Normal <=22 [facility] Comment on above: Result Comment: [employer] via OM: Ordered Performed By: #### L 499.0042 ####[facility] [address] [place], [place], [address] Troponin T HS 4 HRon 025 Trop T High Sen Normal <=22 [facility] Comment on above: Result Comment: [employer] crews via OM: Ordered Performed By: #### L 499.0043 ####[facility] [address] [place], [place], [address] Troponin T.cardiac [Mass/vol ume] in Serum or Plasma by High sensitivity methodOrdered By: Isael Bernabe on 11-30-2024 Troponin T.cardiac High sensitivity method [Mass/Vol] 61 ng/L High <22 [facility] White blood cell (WBC) count Ordered By: Isael Bernabe on 11-30-2024 WBC (Bld) [#/Vol] 19.2 10*3/uL High 4.4-11.0 [facility] ACT Activated Clotting Timeo n 11-28-2024 ACTk CLOT TIME 205 sec High 74-137 [facility] Comment on above: Performed By: #### L 9100.0100 ####[facility] [address] [place], [address] ACTk CLOT TIME 227 sec High 74-137 [facility] Comment on above: Performed By: #### L 9100.0100 ####[facility] [address] [place], [address] Anion gap in Serum or Plasma Ordered By: Jose Hay on 11-28-2024 Anion gap [Moles/Vol] 13 mmol/L 5-[address] [facility] BUN/creatinine ratioOrdered By: Jose Hay on 11-28-2024 Urea nitrogen/Creatinine [Mass ratio] 15.2 mg/mg 10-20 [facility] Bilirubin, totalOrdered By: Jose Hay on 11-28-2024 Bilirubin [Mass/Vol] 0.78 mg/dL 0.00-1.30 [facility] CBC-Complete Blood Cnt No Di ffon 11-28-2024 Erythrocyte distribution width (RBC) [Ratio] 13.6 % Normal 11.6-14.6 [facility] Comment on above: Performed By: #### L 500.4050, L100.0500 ####[facility] [address] [place], [address] Hematocrit (Bld) [Volume fraction] 35.3 % Low 40-54 [facility] Comment on above: Performed By: #### L 500.4050, L100.0500 ####[facility] [address] [place], [address] Hemoglobin (Bld) [Mass/Vol] 11.3 g/dL Low 13.0-16.5 [facility] Comment on above: Performed By: #### L 500.4050, L100.0500 ####[facility] [address] [place], [address] MCH (RBC) [Entitic mass] 29.4 pg Normal 27.0-32.0 [facility] Comment on above: Performed By: #### L 500.4050, L100.0500 ####[facility] [address] [place], [address] MCHC (RBC) [Mass/Vol] 32.0 g/dL Normal 32-[address] [facility] Comment on above: Performed By: #### L 500.4050, L100.0500 ####[facility] [address] [place], [address] MCV (RBC) [Entitic vol] 91.7 fL Normal 80-94 [facility] Comment on above: Performed By: #### L 500.4050, L100.0500 ####[facility] [address] [place], [address] Platelet mean volume (Bld) [Entitic vol] 12.6 fL High 6.2-12.0 [facility] Comment on above: Performed By: #### L 500.4050, L100.0500 ####[facility] [address] [place], [address] Platelets (Bld) [#/Vol] 108 10*3/uL Low 150-450 [facility] Comment on above: Performed By: #### L 500.4050, L100.0500 ####[facility] [address] [place], [address] RBC (Bld) [#/Vol] 3.85 10*6/uL Low 4.6-6.2 [facility] Comment on above: Performed By: #### L 500.4050, L100.0500 ####[facility] [address] [place], [address] RDW SD 46.1 fl High 35.1-43.9 [facility] Comment on above: Performed By: #### L 500.4050, L100.0500 ####[facility] [address] [place], [address] WBC (Bld) [#/Vol] 7.1 10*3/uL Normal 4.4-11.0 [facility] Comment on above: Performed By: #### L 500.4050, L100.0500 ####[facility] [address] [place], [address] Carbon dioxide, total [Moles /volume] in Central venous bloodOrdered By: Jose Hay on 11-28-2024 CO2 [Moles/Vol] 23.7 mmol/L 21.0-32.0 [facility] Chloride assayOrdered By: Harsh Hay on 11-28-2024 Chloride [Moles/Vol] 102 mmol/L 98-108 [facility] Comprehensive Metabolic Prof ilon 11-28-2024 Albumin [Mass/Vol] 3.8 g/dL Normal 3.4-4.8 [facility] Comment on above: Performed By: #### L 500.4050, L100.0500 ####[facility] [address] [place], [address] Albumin/Globulin [Mass ratio] 1.4 {ratio} Normal 0.9-2.4 [facility] Comment on above: Performed By: #### L 500.4050, L100.0500 ####[facility] [address] [place], [address] ALK PHOS 93 U/L Normal 40-129 [facility] Comment on above: Performed By: #### L 500.4050, L100.0500 ####[facility] [address] [place], [address] ALT [Catalytic activity/Vol] 27 U/L Normal <=46 [facility] Comment on above: Result Comment: Hemo lysis present, Results??could be affected.?? Performed By: #### L 500.4050, L100.0500 ####[facility] [address] [place], [address] AST [Catalytic activity/Vol] 33 U/L Normal <=37 [facility] Comment on above: Result Comment: Hemo lysis present, Results??could be affected.?? Performed By: #### L 500.4050, L100.0500 ####[facility] [address] [place], [address] Bilirubin [Mass/Vol] 0.78 mg/dL Normal 0.00-1.30 [facility] Comment on above: Performed By: #### L 500.4050, L100.0500 ####[facility] [address] [place], [address] BUN/CRE 15.2 RATIO Normal 10-20 [facility] Comment on above: Performed By: #### L 500.4050, L100.0500 ####[facility] [address] [place], [address] Calcium [Mass/Vol] 9.2 mg/dL Normal 7.6-11.0 [facility] Comment on above: Performed By: #### L 500.4050, L100.0500 ####[facility] [address] [place], [address] Chloride [Moles/Vol] 102 mmol/L Normal 98-108 [facility] Comment on above: Performed By: #### L 500.4050, L100.0500 ####[facility] [id number] [place], [address] CO2 [Moles/Vol] 23.7 mmol/L Normal 21.0-32.0 [facility] Comment on above: Performed By: #### L 500.4050, L100.0500 ####[facility] [id number] [place], [address] Creatinine [Mass/Vol] 1.93 mg/dL High 0.70-1.[address] [facility] Comment on above: Performed By: #### L 500.4050, L100.0500 ####[facility] [id number] [place], [address] ECRCL 37.66 ml/min Low 50-250 [facility] Comment on above: Performed By: #### L 500.4050, L100.0500 ####[facility] [id number] [place], [address] GAP 13 Normal 5-15 [facility] Comment on above: Performed By: #### L 500.4050, L100.0500 ####[facility] [id number] [place], [address] GFR/1.73 sq M.predicted among non-blacks MDRD (S/P/Bld) [Vol rate/Area] 35 mL/min/{1.73_m2} Low >60 [facility] Comment on above: Result Comment: mL/m in/1.73m2 CKD-EPI Creatinine Equation (2020) Performed By: #### L 500.4050, L100.0500 ####[facility] [address] [place], [address] Globulin (S) [Mass/Vol] 2.8 g/dL Normal 2.2-4.2 [facility] Comment on above: Performed By: #### L 500.4050, L100.0500 ####[facility] [address] [place], [address] Glucose [Mass/Vol] 130 mg/dL High 70-99 [facility] Comment on above: Performed By: #### L 500.4050, L100.0500 ####[facility] [address] [place], [address] Potassium [Moles/Vol] 4.4 mmol/L Normal 3.3-5.[address] [facility] Comment on above: Result Comment: Hemo lysis present, Results??could be affected.?? Performed By: #### L 500.4050, L100.0500 ####[facility] [address] [place], [address] Sodium [Moles/Vol] 139 mmol/L Normal 133-145 [facility] Comment on above: Performed By: #### L 500.4050, L100.0500 ####[facility] [address] [place], [address] T PROT 6.6 g/dL Normal 5.9-8.4 [facility] Comment on above: Performed By: #### L 500.4050, L100.0500 ####[facility] [address] [place], [address] Urea nitrogen [Mass/Vol] 29 mg/dL High 4-19 [facility] Comment on above: Performed By: #### L 500.4050, L100.0500 ####[facility] [address] [place], [address] Erythrocyte distribution wid th ratioOrdered By: Jose Hay on 11-28-2024 Erythrocyte distribution width (RBC) [Ratio] 13.6 % 11.6-14.6 [facility] Erythrocyte distribution wid th standard deviationOrdered By: Jose Hay on 11-28-2024 Erythrocyte distribution width (RBC) [Ratio] 46.1 fl High 35.1-43.9 [facility] Glomerular filtration rate ( GFR) estimation/1.73 sq m using serum, plasma, or whole bOrdered By: Jose Hay on 11-28-2024 GFR/1.73 sq M.predicted among non-blacks MDRD (S/P/Bld) [Vol rate/Area] 35 mL/min/{1.73_m2} Low >60 [facility] Hematocrit Auto (Bld) [Volum e fraction]Ordered By: Jose Hay on 11-28-2024 Hematocrit (Bld) [Volume fraction] 35.3 % Low 40-54 [facility] Hemoglobin measurementOrdere d By: Jose Hay on 11-28-2024 Hemoglobin (Bld) [Mass/Vol] 11.3 g/dL Low 13.0-16.5 [facility] MCV (mean corpuscular volume ) determinationOrdered By: Jose Hay on 11-28-2024 MCV (RBC) [Entitic vol] 91.7 fL 80-94 [facility] Mean corpuscular hemoglobin (MCH) determinationOrdered By: Jose Hay on 11-28-2024 MCH (RBC) [Entitic mass] 29.4 pg 27.0-32.0 [facility] No Panel InformationOrdered By: Jose Hay on 11-28-2024 33 U/L <38 [facility] Platelet countOrdered By: Harsh Hay on 11-28-2024 Platelets (Bld) [#/Vol] 108 10*3/uL Low 150-450 [facility] Potassium measurement (mass/ volume)Ordered By: Jose Hay on 11-28-2024 Potassium (Unsp spec) [Mass/Vol] 4.4 mmol/L 3.3-5.1 [facility] RBC Auto (Bld) [#/Vol]Ordere d By: Jose Hay on 11-28-2024 RBC (Bld) [#/Vol] 3.85 10*6/uL Low 4.6-6.2 [facility] Serum creatinine measurement (mass/volume)Ordered By: Jose Hay on 11-28-2024 Creatinine [Mass/Vol] 1.93 mg/dL High 0.70-1.[address] [facility] Serum globulin measurementOr dered By: Jose Hay on 11-28-2024 Globulin (S) [Mass/Vol] 2.8 g/dL 2.2-4.2 [facility] Serum glucose measurement (m ass/volume)Ordered By: Jose Hay on 11-28-2024 Glucose [Mass/Vol] 130 mg/dL High 70-99 [facility] Serum or plasma alanine guerrero otransferase (ALT) measurementOrdered By: Jose Hay on 11-28-2024 ALT [Catalytic activity/Vol] 27 U/L <47 [facility] Serum or plasma albumin francine urement (mass/volume)Ordered By: Jose Hay on 11-28-2024 Albumin [Mass/Vol] 3.8 g/dL 3.4-4.8 [facility] Serum or plasma albumin/glob ulin mass ratioOrdered By: Jose Hay on 11-28-2024 Albumin/Globulin [Mass ratio] 1.4 {ratio} 0.9-2.4 [facility] Serum or plasma alkaline bell sphatase measurementOrdered By: Jose Hay on 11-28-2024 ALP [Catalytic activity/Vol] 93 U/L 40-129 [facility] Serum or plasma calcium francine urement (mass/volume)Ordered By: Jose Hay on 11-28-2024 Calcium [Mass/Vol] 9.2 mg/dL 7.6-11.0 [facility] Serum or plasma urea nitroge n measurement (mass/volume)Ordered By: Jose Hay on 11-28-2024 Urea nitrogen [Mass/Vol] 29 mg/dL High 4-19 [facility] Sodium levelOrdered By: Ernst Hay on 11-28-2024 Sodium [Moles/Vol] 139 mmol/L 133-145 [facility] Total proteinOrdered By: Emmanuel Hay on 11-28-2024 Protein [Mass/Vol] 6.6 g/dL 5.9-8.4 [facility] White blood cell (WBC) count Ordered By: Jose Hay on 11-28-2024 WBC (Bld) [#/Vol] 7.1 10*3/uL 4.4-11.0 [facility] 12 Lead EKGon 11-27-[address] [facility] Cardiac rehabilitation repor tOrdered By: Karrie Arceo on 11-27-[address] [facility] Discharge Instructionon 11-01 Discharge Instruction Normal [facility] 12 Lead EKGon 11-26-20[address] [facility] Absolute lymphocyte countOrd ered By: Isael Bernabe on 11-26-2024 Lymphocytes Auto (Unsp spec) [#/Vol] 1.53 10*3/uL 0.83-4.51 [facility] Anion gap in Serum or Plasma Ordered By: Isael Bernabe on 11-26-2024 Anion gap [Moles/Vol] 15 mmol/L 09-[address] [facility] Automated lymphocyte count a s percentage of total leukocytesOrdered By: Isael Bernabe on 11-26-2024 Lymphocytes/100 WBC Auto (Unsp spec) 16.7 % Low [facility] BUN/creatinine ratioOrdered By: Isael Bernabe on 11-26-2024 Urea nitrogen/Creatinine [Mass ratio] 18.2 mg/mg 02-19 [facility] Basic Metabolic Profile (BMP )on 11-26-2024 BUN/CRE 18.2 RATIO Normal 02-19 [facility] Comment on above: Performed By: #### L 501.4021, L503.7505, L500.2500, L100.0100 ####[facility] [address] [place], [address] Calcium [Mass/Vol] 9.2 mg/dL Normal 7.6-11.0 [facility] Comment on above: Performed By: #### L 501.4021, L503.7505, L500.2500, L100.0100 ####[facility] [address] [place], [address] Chloride [Moles/Vol] 100 mmol/L Normal 98-108 [facility] Comment on above: Performed By: #### L 501.4021, L503.7505, L500.2500, L100.0100 ####[facility] [address] [place], [address] CO2 [Moles/Vol] 21.5 mmol/L Normal 21.0-32.0 [facility] Comment on above: Performed By: #### L 501.4021, L503.7505, L500.2500, L100.0100 ####[facility] [address] [place], [address] Creatinine [Mass/Vol] 2.34 mg/dL High 0.70-1.[address] [facility] Comment on above: Performed By: #### L 501.4021, L503.7505, L500.2500, L100.0100 ####[facility] [address] [place], [address] ECRCL 31.97 ml/min Low 50-250 [facility] Comment on above: Performed By: #### L 501.4021, L503.7505, L500.2500, L100.0100 ####[facility] [address] [place], [address] GAP 15 Normal 5-15 [facility] Comment on above: Performed By: #### L 501.4021, L503.7505, L500.2500, L100.0100 ####[facility] [address] [place], [address] GFR/1.73 sq M.predicted among non-blacks MDRD (S/P/Bld) [Vol rate/Area] 28 mL/min/{1.73_m2} Low >60 [facility] Comment on above: Result Comment: mL/m in/1.73m2 CKD-EPI Creatinine Equation (2020) Performed By: #### L 501.4021, L503.7505, L500.2500, L100.0100 ####[facility] [address] [place], [address] Glucose [Mass/Vol] 275 mg/dL High 70-99 [facility] Comment on above: Performed By: #### L 501.4021, L503.7505, L500.2500, L100.0100 ####[facility] [address] [place], [address] Potassium [Moles/Vol] 4.4 mmol/L Normal 3.3-5.[address] [facility] Comment on above: Performed By: #### L 501.4021, L503.7505, L500.2500, L100.0100 ####[facility] [address] [place], [address] Sodium [Moles/Vol] 137 mmol/L Normal 133-145 [facility] Comment on above: Performed By: #### L 501.4021, L503.7505, L500.2500, L100.0100 ####[facility] [address] [place], [address] Urea nitrogen [Mass/Vol] 43 mg/dL High 4-19 [facility] Comment on above: Performed By: #### L 501.4021, L503.7505, L500.2500, L100.0100 ####[facility] [address] [place], [address] Basophil percentageOrdered B y: Isael Bernabe on 11-26-2024 Basophils/100 WBC (Bld) 0.3 % 0-1 [facility] Brain/Head without Contrasto n 11-26-2024 Brain/Head without Contrast Normal [facility] CBC W/Diff, Automatedon - Absolute Lymph 1.53 X10 3/uL Normal 0.83-4.51 [facility] Comment on above: Performed By: #### L 501.4021, L503.7505, L500.2500, L100.0100 ####[facility] [address] [place], [address] Absolute Neut 6.6 X10 3/uL Normal 2.0-7.7 [facility] Comment on above: Performed By: #### L 501.4021, L503.7505, L500.2500, L100.0100 ####[facility] [address] [place], [address] Basophils/100 WBC (Bld) 0.3 % Normal 0-1 [facility] Comment on above: Performed By: #### L 501.4021, L503.7505, L500.2500, L100.0100 ####[facility] [address] [place], [address] Eosinophils/100 WBC (Bld) 1.3 % Normal 0-5 [facility] Comment on above: Performed By: #### L 501.4021, L503.7505, L500.2500, L100.0100 ####[facility] [address] [place], [address] Erythrocyte distribution width (RBC) [Ratio] 13.9 % Normal 11.6-14.6 [facility] Comment on above: Performed By: #### L 501.4021, L503.7505, L500.2500, L100.0100 ####[facility] [address] [place], [address] Hematocrit (Bld) [Volume fraction] 36.7 % Low 40-54 [facility] Comment on above: Performed By: #### L 501.4021, L503.7505, L500.2500, L100.0100 ####[facility] [address] [place], [address] Hemoglobin (Bld) [Mass/Vol] 11.8 g/dL Low 13.0-16.5 [facility] Comment on above: Performed By: #### L 501.4021, L503.7505, L500.2500, L100.0100 ####[facility] [address] [place], [address] IG% 0.400 Normal 0.0-0.9 [facility] Comment on above: Result Comment: IG% - Immature Granulocytes (promyelocytes, myelocytes andmetamyelocytes) > 1% indicates that a LEFT SHIFT is Present. Performed By: #### L 501.4021, L503.7505, L500.2500, L100.0100 ####[facility] [address] [place], [address] Lymphocytes/100 WBC (Bld) 16.7 % Low 19-41 [facility] Comment on above: Performed By: #### L 501.4021, L503.7505, L500.2500, L100.0100 ####[facility] [address] [place], [address] MCH (RBC) [Entitic mass] 29.2 pg Normal 27.0-32.0 [facility] Comment on above: Performed By: #### L 501.4021, L503.7505, L500.2500, L100.0100 ####[facility] [address] [place], [address] MCHC (RBC) [Mass/Vol] 32.2 g/dL Normal 32-[address] [facility] Comment on above: Performed By: #### L 501.4021, L503.7505, L500.2500, L100.0100 ####[facility] [address] [place], [address] MCV (RBC) [Entitic vol] 90.8 fL Normal 80-94 [facility] Comment on above: Performed By: #### L 501.4021, L503.7505, L500.2500, L100.0100 ####[facility] [address] [place], [address] Monocytes/100 WBC (Bld) 9.5 % Normal 0-10 [facility] Comment on above: Performed By: #### L 501.4021, L503.7505, L500.2500, L100.0100 ####[facility] [address] [place], [address] Neutrophils/100 WBC (Bld) 71.8 % High 47-70 [facility] Comment on above: Performed By: #### L 501.4021, L503.7505, L500.2500, L100.0100 ####[facility] [address] [place], [address] Nucleated RBC (Bld) [#/Vol] 0 10*3/uL Normal 0-5 [facility] Comment on above: Performed By: #### L 501.4021, L503.7505, L500.2500, L100.0100 ####[facility] [address] [place], [address] Platelet mean volume (Bld) [Entitic vol] 12.8 fL High 6.2-12.0 [facility] Comment on above: Performed By: #### L 501.4021, L503.7505, L500.2500, L100.0100 ####[facility] [address] [place], [address] Platelets (Bld) [#/Vol] 132 10*3/uL Low 150-450 [facility] Comment on above: Performed By: #### L 501.4021, L503.7505, L500.2500, L100.0100 ####[facility] [address] [place], [address] RBC (Bld) [#/Vol] 4.04 10*6/uL Low 4.6-6.2 [facility] Comment on above: Performed By: #### L 501.4021, L503.7505, L500.2500, L100.0100 ####[facility] [address] [place], [address] RDW SD 46.6 fl High 35.1-43.9 [facility] Comment on above: Performed By: #### L 501.4021, L503.7505, L500.2500, L100.0100 ####[facility] [address] [place], [address] WBC (Bld) [#/Vol] 9.2 10*3/uL Normal 4.4-11.0 [facility] Comment on above: Performed By: #### L 501.4021, L503.7505, L500.2500, L100.0100 ####[facility] [address] [place], [address] Carbon dioxide, total [Moles /volume] in Central venous bloodOrdered By: Isael Bernabe on 11-26-2024 CO2 [Moles/Vol] 21.5 mmol/L 21.0-32.0 [facility] Chest 1 View (Portable)on Chest 1 View (Portable) Normal [facility] Chloride assayOrdered By: Jaylen Bernabe on 11-26-2024 Chloride [Moles/Vol] 100 mmol/L 98-108 [facility] Summary on 11-26-2024 [address] Normal [facility] Eosinophil percentageOrdered By: Isael Bernabe on 11-26-2024 Eosinophils/100 WBC (Bld) 1.3 % 0-5 [facility] Erythrocyte distribution wid th ratioOrdered By: Isael Bernabe on 11-26-2024 Erythrocyte distribution width (RBC) [Ratio] 13.9 % 11.6-14.6 [facility] Erythrocyte distribution wid th standard deviationOrdered By: Isael Bernabe on 11-26-2024 Erythrocyte distribution width (RBC) [Ratio] 46.6 fl High 35.1-43.9 [facility] Glomerular filtration rate ( GFR) estimation/1.73 sq m using serum, plasma, or whole bOrdered By: Isael Bernabe on 11-26-2024 GFR/1.73 sq M.predicted among non-blacks MDRD (S/P/Bld) [Vol rate/Area] 28 mL/min/{1.73_m2} Low >60 [facility] Hand Min 3 Viewson Hand Min [address] [facility] Hematocrit Auto (Bld) [Volum e fraction]Ordered By: Isael Bernabe on 11-26-2024 Hematocrit (Bld) [Volume fraction] 36.7 % Low 40-54 [facility] Hemoglobin measurementOrdere d By: Isael Bernabe on 11-26-2024 Hemoglobin (Bld) [Mass/Vol] 11.8 g/dL Low 13.0-16.5 [facility] Immature granulocytes/100 WB C Auto (Bld)Ordered By: Isael Bernabe on 11-26-2024 Immature granulocytes/100 WBC (Bld) 0.400 % 0.0-0.9 [facility] Knee 4 or More Viewson 11-26 Knee 4 or More Views Normal [facility] Knee 4 or More Views Normal [facility] L501.4021on 11-26-2024 Trop T High Sen 18 ng/L Normal <=22 [facility] Comment on above: Performed By: #### L 501.4021, L503.7505, L500.2500, L100.0100 ####[facility] [address] [place], [address] MCV (mean corpuscular volume ) determinationOrdered By: Isael Bernabe on 11-26-2024 MCV (RBC) [Entitic vol] 90.8 fL 80-94 [facility] Mean corpuscular hemoglobin (MCH) determinationOrdered By: Isael Bernabe on 11-26-2024 MCH (RBC) [Entitic mass] 29.2 pg 27.0-32.0 [facility] Monocyte percentageOrdered B y: Isael Bernabe on 11-26-2024 Monocytes/100 WBC (Bld) 9.5 % 0-10 [facility] Natriuretic peptide.B prohor efrem N-Terminal [Mass/volume] in Serum or PlasmaOrdered By: Isael Bernabe on 11-26-2024 Natriuretic peptide.B prohormone N-Terminal [Mass/Vol] 162 pg/mL <1800 [facility] Neutrophil percentageOrdered By: Isael Bernabe on 11-26-2024 Neutrophils/100 WBC (Bld) 71.8 % High 47-70 [facility] Platelet countOrdered By: Jaylen Bernabe on 11-26-2024 Platelets (Bld) [#/Vol] 132 10*3/uL Low 150-450 [facility] Potassium measurement (mass/ volume)Ordered By: Isael Bernabe on 11-26-2024 Potassium (Unsp spec) [Mass/Vol] 4.4 mmol/L 3.3-5.1 [facility] Pro- Brain NATRIURETIC PEPTI Sharon 11-26-2024 Natriuretic peptide B (Bld) [Mass/Vol] 162 pg/mL Normal <=1800 [facility] Comment on above: Result Comment: Hear t Failure Unlikely: < 300 pg/mLHeart Failure Likely< 50 Years: > 450 pg/mL50-75 Years: > 900 pg/mL>75 Years: > 1800 pg/mL Performed By: #### L 501.4021, L503.7505, L500.2500, L100.0100 ####[facility] [address] [place], [address] RBC Auto (Bld) [#/Vol]Ordere d By: Isael Bernabe on 11-26-2024 RBC (Bld) [#/Vol] 4.04 10*6/uL Low 4.6-6.2 [facility] Serum creatinine measurement (mass/volume)Ordered By: Isael Bernabe on 11-26-2024 Creatinine [Mass/Vol] 2.34 mg/dL High 0.70-1.[address] [facility] Serum glucose measurement (m ass/volume)Ordered By: Isael Bernabe on 11-26-2024 Glucose [Mass/Vol] 275 mg/dL High 70-99 [facility] Serum or plasma calcium francine urement (mass/volume)Ordered By: Isael Bernabe on 11-26-2024 Calcium [Mass/Vol] 9.2 mg/dL 7.6-11.0 [facility] Serum or plasma urea nitroge n measurement (mass/volume)Ordered By: Isael Bernabe on 11-26-2024 Urea nitrogen [Mass/Vol] 43 mg/dL High 4-19 [facility] Sodium levelOrdered By: Isael Bernabe on 11-26-2024 Sodium [Moles/Vol] 137 mmol/L 133-145 [facility] Spine Cervical without Contr ason 11-26-2024 Spine Cervical without Contras Normal [facility] Troponin T HS 2 HRon 025 Trop T High Sen 20 ng/L Normal <=22 [facility] Comment on above: Performed By: #### L 499.0042 ####[facility] [address] [place], [place], [address] Troponin T HS 4 HRon 025 Trop T High Sen Normal <=22 [facility] Comment on above: Result Comment: Canc elled via OM: Order cancelled - Patient discharged Performed By: #### L 499.0043 ####[facility] [address] [place], [place], [id number] Troponin T.cardiac [Mass/vol ume] in Serum or Plasma by High sensitivity methodOrdered By: Isael Bernabe on 11-26-2024 Troponin T.cardiac High sensitivity method [Mass/Vol] 20 ng/L <22 [facility] Troponin T.cardiac High sensitivity method [Mass/Vol] 18 ng/L <22 [facility] White blood cell (WBC) count Ordered By: Isael Bernabe on 11-26-2024 WBC (Bld) [#/Vol] 9.2 10*3/uL 4.4-11.0 [facility] Absolute lymphocyte countOrd ered By: Gustabo Pérez on 11-22-2024 Lymphocytes Auto (Unsp spec) [#/Vol] 1.37 10*3/uL 0.83-4.51 [facility] Anion gap in Serum or Plasma Ordered By: Gustabo Pérez on 11-22-2024 Anion gap [Moles/Vol] 15 mmol/L 5-[address] [facility] Automated lymphocyte count a s percentage of total leukocytesOrdered By: Gustabo Pérez on 11-22-2024 Lymphocytes/100 WBC Auto (Unsp spec) 16.1 % Low 19-41 [facility] BUN/creatinine ratioOrdered By: Gustabo Pérez on 11-22-2024 Urea nitrogen/Creatinine [Mass ratio] 15.6 mg/mg 10-20 [facility] Basic Metabolic Profile (BMP )on 11-22-2024 BUN/CRE 15.6 RATIO Normal 10-20 [facility] Comment on above: Performed By: #### L 100.0100, L500.2500, L503.7505 ####[facility] [address] [place], [address] Calcium [Mass/Vol] 9.1 mg/dL Normal 7.6-11.0 [facility] Comment on above: Performed By: #### L 100.0100, L500.2500, L503.7505 ####[facility] [address] [place], [address] Chloride [Moles/Vol] 102 mmol/L Normal 98-108 [facility] Comment on above: Performed By: #### L 100.0100, L500.2500, L503.7505 ####[facility] [address] [place], [address] CO2 [Moles/Vol] 21.6 mmol/L Normal 21.0-32.0 [facility] Comment on above: Performed By: #### L 100.0100, L500.2500, L503.7505 ####[facility] [address] [place], [address] Creatinine [Mass/Vol] 2.51 mg/dL High 0.70-1.[address] [facility] Comment on above: Performed By: #### L 100.0100, L500.2500, L503.7505 ####[facility] [address] [place], [address] GAP 15 Normal 5-15 [facility] Comment on above: Performed By: #### L 100.0100, L500.2500, L503.7505 ####[facility] [address] [place], [address] GFR/1.73 sq M.predicted among non-blacks MDRD (S/P/Bld) [Vol rate/Area] 25 mL/min/{1.73_m2} Low >60 [facility] Comment on above: Result Comment: mL/m in/1.73m2 CKD-EPI Creatinine Equation (2020) Performed By: #### L 100.0100, L500.2500, L503.7505 ####[facility] [address] [place], [address] Glucose [Mass/Vol] 262 mg/dL High 70-99 [facility] Comment on above: Performed By: #### L 100.0100, L500.2500, L503.7505 ####[facility] [address] [place], [address] Potassium [Moles/Vol] 4.8 mmol/L Normal 3.3-5.[address] [facility] Comment on above: Performed By: #### L 100.0100, L500.2500, L503.7505 ####[facility] [address] [place], [address] Sodium [Moles/Vol] 139 mmol/L Normal 133-145 [facility] Comment on above: Performed By: #### L 100.0100, L500.2500, L503.7505 ####[facility] [address] [place], [address] Urea nitrogen [Mass/Vol] 39 mg/dL High 4-19 [facility] Comment on above: Performed By: #### L 100.0100, L500.2500, L503.7505 ####[facility] [address] [place], [address] Basophil percentageOrdered B y: Gustabo Beto on 11-22-2024 Basophils/100 WBC (Bld) 0.4 % 0-1 [facility] CBC W/Diff, Automatedon 11-01 Absolute Lymph 1.37 X10 3/uL Normal 0.83-4.51 [facility] Comment on above: Performed By: #### L 100.0100, L500.2500, L503.7505 ####[facility] [address] [place], [address] Absolute Neut 6.2 X10 3/uL Normal 2.0-7.7 [facility] Comment on above: Performed By: #### L 100.0100, L500.2500, L503.7505 ####[facility] [address] [place], [address] Basophils/100 WBC (Bld) 0.4 % Normal 0-1 [facility] Comment on above: Performed By: #### L 100.0100, L500.2500, L503.7505 ####[facility] [address] [place], [address] Eosinophils/100 WBC (Bld) 1.5 % Normal 0-5 [facility] Comment on above: Performed By: #### L 100.0100, L500.2500, L503.7505 ####[facility] [address] [place], [address] Erythrocyte distribution width (RBC) [Ratio] 13.8 % Normal 11.6-14.6 [facility] Comment on above: Performed By: #### L 100.0100, L500.2500, L503.7505 ####[facility] [address] [place], [address] Hematocrit (Bld) [Volume fraction] 36.5 % Low 40-54 [facility] Comment on above: Performed By: #### L 100.0100, L500.2500, L503.7505 ####[facility] [address] [place], [address] Hemoglobin (Bld) [Mass/Vol] 11.8 g/dL Low 13.0-16.5 [facility] Comment on above: Performed By: #### L 100.0100, L500.2500, L503.7505 ####[facility] [address] [place], [address] IG% 0.500 Normal 0.0-0.9 [facility] Comment on above: Result Comment: IG% - Immature Granulocytes (promyelocytes, myelocytes andmetamyelocytes) > 1% indicates that a LEFT SHIFT is Present. Performed By: #### L 100.0100, L500.2500, L503.7505 ####[facility] [id number] [place], [address] Lymphocytes/100 WBC (Bld) 16.1 % Low 19-41 [facility] Comment on above: Performed By: #### L 100.0100, L500.2500, L503.7505 ####[facility] [id number] [place], [address] [facility] (RBC) [Entitic mass] 29.6 pg Normal 27.0-32.0 [facility] Comment on above: Performed By: #### L 100.0100, L500.2500, L503.7505 ####[facility] [address] [place], [address] MCHC (RBC) [Mass/Vol] 32.3 g/dL Normal 32-[address] [facility] Comment on above: Performed By: #### L 100.0100, L500.2500, L503.7505 ####[facility] [address] [place], [address] MCV (RBC) [Entitic vol] 91.7 fL Normal 80-94 [facility] Comment on above: Performed By: #### L 100.0100, L500.2500, L503.7505 ####[facility] [address] [place], [address] Monocytes/100 WBC (Bld) 9.0 % Normal 0-10 [facility] Comment on above: Performed By: #### L 100.0100, L500.2500, L503.7505 ####[facility] [address] [place], [address] Neutrophils/100 WBC (Bld) 72.5 % High 47-70 [facility] Comment on above: Performed By: #### L 100.0100, L500.2500, L503.7505 ####[facility] [address] [place], [address] Nucleated RBC (Bld) [#/Vol] 0 10*3/uL Normal 0-5 [facility] Comment on above: Performed By: #### L 100.0100, L500.2500, L503.7505 ####[facility] [address] [place], [address] Platelet mean volume (Bld) [Entitic vol] 13.0 fL High 6.2-12.0 [facility] Comment on above: Performed By: #### L 100.0100, L500.2500, L503.7505 ####[facility] [address] [place], [address] Platelets (Bld) [#/Vol] 148 10*3/uL Low 150-450 [facility] Comment on above: Performed By: #### L 100.0100, L500.2500, L503.7505 ####[facility] [address] [place], [address] RBC (Bld) [#/Vol] 3.98 10*6/uL Low 4.6-6.2 [facility] Comment on above: Performed By: #### L 100.0100, L500.2500, L503.7505 ####[facility] [address] [place], [address] RDW SD 47.0 fl High 35.1-43.9 [facility] Comment on above: Performed By: #### L 100.0100, L500.2500, L503.7505 ####[facility] [address] [place], [place], [address] WBC (Bld) [#/Vol] 8.5 10*3/uL Normal 4.4-11.0 [facility] Comment on above: Performed By: #### L 100.0100, L500.2500, L503.7505 ####[facility] [address] [place], [address] Carbon dioxide, total [Moles /volume] in Central venous bloodOrdered By: Gustabo Pérez on 11-22-2024 CO2 [Moles/Vol] 21.6 mmol/L 21.0-32.0 [facility] Cardiology Visit Reporton Cardiology Visit Report Normal [facility] Chest PA and Lateralon 11-22 Chest PA and Lateral Normal [facility] Chloride assayOrdered By: Lydia Pérez on 11-22-2024 Chloride [Moles/Vol] 102 mmol/L 98-108 [facility] Eosinophil percentageOrdered By: Gustabo Pérez on 11-22-2024 Eosinophils/100 WBC (Bld) 1.5 % 0-5 [facility] Erythrocyte distribution wid th ratioOrdered By: Gustabo Pérez on 11-22-2024 Erythrocyte distribution width (RBC) [Ratio] 13.8 % 11.6-14.6 [facility] Erythrocyte distribution wid th standard deviationOrdered By: Gustabo Pérez on 11-22-2024 Erythrocyte distribution width (RBC) [Ratio] 47.0 fl High 35.1-43.9 [facility] Glomerular filtration rate ( GFR) estimation/1.73 sq m using serum, plasma, or whole bOrdered By: Gustabo Pérez on 11-22-2024 GFR/1.73 sq M.predicted among non-blacks MDRD (S/P/Bld) [Vol rate/Area] 25 mL/min/{1.73_m2} Low >60 [facility] Hematocrit Auto (Bld) [Volum e fraction]Ordered By: Gustabo Pérez on 11-22-2024 Hematocrit (Bld) [Volume fraction] 36.5 % Low 40-54 [facility] Hemoglobin measurementOrdere d By: Gustabo Pérez on 11-22-2024 Hemoglobin (Bld) [Mass/Vol] 11.8 g/dL Low 13.0-16.5 [facility] Immature granulocytes/100 WB C Auto (Bld)Ordered By: Gustabo Pérez on 11-22-2024 Immature granulocytes/100 WBC (Bld) 0.500 % 0.0-0.9 [facility] L503.7505on 11-22-2024 Natriuretic peptide B (Bld) [Mass/Vol] 188 pg/mL Normal <=1800 [facility] Comment on above: Result Comment: Hear t Failure Unlikely: < 300 pg/mLHeart Failure Likely< 50 Years: > 450 pg/mL50-75 Years: > 900 pg/mL>75 Years: > 1800 pg/mL Performed By: #### L 100.0100, L500.2500, L503.7505 ####[facility] [address] [place], [address] MCV (mean corpuscular volume ) determinationOrdered By: Gustabo Pérez on 11-22-2024 MCV (RBC) [Entitic vol] 91.7 fL 80-94 [facility] Mean corpuscular hemoglobin (MCH) determinationOrdered By: Gustabo Pérez on 11-22-2024 MCH (RBC) [Entitic mass] 29.6 pg 27.0-32.0 [facility] Monocyte percentageOrdered B y: Gustabo Pérez on 11-22-2024 Monocytes/100 WBC (Bld) 9.0 % 0-10 [facility] Natriuretic peptide.B prohor efrem N-Terminal [Mass/volume] in Serum or PlasmaOrdered By: Gustabo Pérez on 11-22-2024 Natriuretic peptide.B prohormone N-Terminal [Mass/Vol] 188 pg/mL <1800 [facility] Neutrophil percentageOrdered By: Gustabo Pérez on 11-22-2024 Neutrophils/100 WBC (Bld) 72.5 % High 47-70 [facility] Platelet countOrdered By: Lydia Pérez on 11-22-2024 Platelets (Bld) [#/Vol] 148 10*3/uL Low 150-450 [facility] Potassium measurement (mass/ volume)Ordered By: Gustabo Pérez on 11-22-2024 Potassium (Unsp spec) [Mass/Vol] 4.8 mmol/L 3.3-5.1 [facility] RBC Auto (Bld) [#/Vol]Ordere d By: Gustabo Pérez on 11-22-2024 RBC (Bld) [#/Vol] 3.98 10*6/uL Low 4.6-6.2 [facility] Serum creatinine measurement (mass/volume)Ordered By: Gustabo Pérez on 11-22-2024 Creatinine [Mass/Vol] 2.51 mg/dL High 0.70-1.[address] [facility] Serum glucose measurement (m ass/volume)Ordered By: Gustabo Pérez on 11-22-2024 Glucose [Mass/Vol] 262 mg/dL High 70-99 [facility] Serum or plasma calcium francine urement (mass/volume)Ordered By: Gustabo Pérez on 11-22-2024 Calcium [Mass/Vol] 9.1 mg/dL 7.6-11.0 [facility] Serum or plasma urea nitroge n measurement (mass/volume)Ordered By: Gustabo Pérez on 11-22-2024 Urea nitrogen [Mass/Vol] 39 mg/dL High 4-19 [facility] Sodium levelOrdered By: Gustabo Pérez on 11-22-2024 Sodium [Moles/Vol] 139 mmol/L 133-145 [facility] White blood cell (WBC) count Ordered By: Gustabo Pérez on 11-22-2024 WBC (Bld) [#/Vol] 8.5 10*3/uL 4.4-11.0 [facility] Shoulder min 2 Viewson 11-20 Shoulder min 2 Views Normal [facility] Cardiovascular stress test r eportOrdered By: Jose Hay on 11-13-2024 Study report [facility] [address] [place] [address] MR#: [id number] Acct: [id number] Name: ERIBERTO RICO Rep #: [id number] : 1945 79 From: Jose Hay MD Primary Care: Dr. 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 5. 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 6. The gated Cardiolite study reports an LVEF of 62%. This note was generated with Proficiency software. It may contain incorrectwords, spelling, and punctuation that were not noted in checking the note beforesigning. 11/13/241538 Date _ Jose Hay MD CC: YRN éPrez; Dr. Marycarmen Rodriguez, DO ~ Date Dictated: 11/13/241536 Date Transcribed: 11/13/241536 Arboriculturist: HARSH Signed [facility] Work Phone: Stress Reporton 11-13-[address] [facility] Echo Complete W/ Contraston 11-10-2024 Echo Complete W/ Contrast Normal [facility] Echocardiogram study reportO rdered By: Lance Rodriguez on 11-10-2024 Study report [facility] [address] [place] [address] Echo Complete W/ Contrast 11/10/24 09 MR#: [id number] Acct: [id number] Name: ERIBERTO RICO Rep #:[id number] : 1945 79 From: Lance Hooker Attending Dr: Gustabo Pérez NP-C Sta tus: REG CLI Ordering Dr: Maren [...] ~ Date Dictated: 11/10/24919 Date Transcribed: 11/10/241212 Arboriculturist: Signed [facility] Absolute lymphocyte countOrd ered By: Marycarmen Rodriguez on 11-09-2024 Lymphocytes Auto (Unsp spec) [#/Vol] 1.23 10*3/uL 0.83-4.51 [facility] Absolute neutrophil countOrd ered By: Marycarmen Rodriguez on 11-09-2024 Neutrophils (Bld) [#/Vol] 4.1 10*3/uL 2.0-7.7 [facility] Anion gap in Serum or Plasma Ordered By: Marycarmen Rodriguez on 11-09-2024 Anion gap [Moles/Vol] 14 mmol/L - [facility] Automated lymphocyte count a s percentage of total leukocytesOrdered By: Marycarmen Rodriguez on 11-09-2024 Lymphocytes/100 WBC Auto (Unsp spec) 19.9 % [facility] BUN/creatinine ratioOrdered By: Marycarmen Rodriguez on 11-09-2024 Urea nitrogen/Creatinine [Mass ratio] 19.7 mg/mg - [facility] Basic Metabolic Profile (BMP )on 11-09-2024 BUN/CRE 19.7 RATIO Normal - [facility] Comment on above: Performed By: #### L 503.7505, L500.2500, L100.0100 ####[facility] [address] [place], [address] Calcium [Mass/Vol] 9.3 mg/dL Normal 7.6-11.0 [facility] Comment on above: Performed By: #### L 503.7505, L500.2500, L100.0100 ####[facility] [address] [place] [place], [address] Chloride [Moles/Vol] 102 mmol/L Normal 98-108 [facility] Comment on above: Performed By: #### L 503.7505, L500.2500, L100.0100 ####[facility] [address] [place], [address] CO2 [Moles/Vol] 22.5 mmol/L Normal 21.0-32.0 [facility] Comment on above: Performed By: #### L 503.7505, L500.2500, L100.0100 ####[facility] [address] [place], [address] Creatinine [Mass/Vol] 2.49 mg/dL High 0.70-1.[address] [facility] Comment on above: Performed By: #### L 503.7505, L500.2500, L100.0100 ####[facility] [address] [place], [address] GAP 14 Normal 5-15 [facility] Comment on above: Performed By: #### L 503.7505, L500.2500, L100.0100 ####[facility] [address] [place], [address] GFR/1.73 sq M.predicted among non-blacks MDRD (S/P/Bld) [Vol rate/Area] 26 mL/min/{1.73_m2} Low >60 [facility] Comment on above: Result Comment: mL/m in/1.73m2 CKD-EPI Creatinine Equation (2020) Performed By: #### L 503.7505, L500.2500, L100.0100 ####[facility] [address] [place], [address] Glucose [Mass/Vol] 169 mg/dL High 70-99 [facility] Comment on above: Performed By: #### L 503.7505, L500.2500, L100.0100 ####[facility] [address] [place], [address] Potassium [Moles/Vol] 4.6 mmol/L Normal 3.3-5.[address] [facility] Comment on above: Performed By: #### L 503.7505, L500.2500, L100.0100 ####[facility] [address] [place], [address] Sodium [Moles/Vol] 139 mmol/L Normal 133-145 [facility] Comment on above: Performed By: #### L 503.7505, L500.2500, L100.0100 ####[facility] [address] [place], [address] Urea nitrogen [Mass/Vol] 49 mg/dL High 4-19 [facility] Comment on above: Performed By: #### L 503.7505, L500.2500, L100.0100 ####[facility] [address] [place], [address] Basophil percentageOrdered B y: Marycarmen Rodriguez on 11-09-2024 Basophils/100 WBC (Bld) 0.3 % 0-1 [facility] CBC W/Diff, Automatedon 10-31 Absolute Lymph 1.23 X10 3/uL Normal 0.83-4.51 [facility] Comment on above: Performed By: #### L 503.7505, L500.2500, L100.0100 ####[facility] [address] [place], [address] Absolute Neut 4.1 X10 3/uL Normal 2.0-7.7 [facility] Comment on above: Performed By: #### L 503.7505, L500.2500, L100.0100 ####[facility] [address] [place], [address] Basophils/100 WBC (Bld) 0.3 % Normal 0-1 [facility] Comment on above: Performed By: #### L 503.7505, L500.2500, L100.0100 ####[facility] [address] [place], [address] Eosinophils/100 WBC (Bld) 2.4 % Normal 0-5 [facility] Comment on above: Performed By: #### L 503.7505, L500.2500, L100.0100 ####[facility] [address] [place], [address] Erythrocyte distribution width (RBC) [Ratio] 14.1 % Normal 11.6-14.6 [facility] Comment on above: Performed By: #### L 503.7505, L500.2500, L100.0100 ####[facility] [address] [place], [address] Hematocrit (Bld) [Volume fraction] 38.2 % Low 40-54 [facility] Comment on above: Performed By: #### L 503.7505, L500.2500, L100.0100 ####[facility] [address] [place], [address] Hemoglobin (Bld) [Mass/Vol] 12.2 g/dL Low 13.0-16.5 [facility] Comment on above: Performed By: #### L 503.7505, L500.2500, L100.0100 ####[facility] [address] [place], [address] IG% 0.500 Normal 0.0-0.9 [facility] Comment on above: Result Comment: IG% - Immature Granulocytes (promyelocytes, myelocytes andmetamyelocytes) > 1% indicates that a LEFT SHIFT is Present. Performed By: #### L 503.7505, L500.2500, L100.0100 ####[facility] [address] [place], [address] Lymphocytes/100 WBC (Bld) 19.9 % Normal 19-41 [facility] Comment on above: Performed By: #### L 503.7505, L500.2500, L100.0100 ####[facility] [address] [place], [address] MCH (RBC) [Entitic mass] 29.6 pg Normal 27.0-32.0 [facility] Comment on above: Performed By: #### L 503.7505, L500.2500, L100.0100 ####[facility] [address] [place], [address] MCHC (RBC) [Mass/Vol] 31.9 g/dL Low 32-[address] [facility] Comment on above: Performed By: #### L 503.7505, L500.2500, L100.0100 ####[facility] [address] [place] [place], [address] MCV (RBC) [Entitic vol] 92.7 fL Normal 80-94 [facility] Comment on above: Performed By: #### L 503.7505, L500.2500, L100.0100 ####[facility] [address] [place], [address] Monocytes/100 WBC (Bld) 10.4 % High 0-10 [facility] Comment on above: Performed By: #### L 503.7505, L500.2500, L100.0100 ####[facility] [address] [place], [address] Neutrophils/100 WBC (Bld) 66.5 % Normal 47-70 [facility] Comment on above: Performed By: #### L 503.7505, L500.2500, L100.0100 ####[facility] [address] [place], [address] Nucleated RBC (Bld) [#/Vol] 0 10*3/uL Normal 0-5 [facility] Comment on above: Performed By: #### L 503.7505, L500.2500, L100.0100 ####[facility] [address] [place], [address] Platelet mean volume (Bld) [Entitic vol] 12.7 fL High 6.2-12.0 [facility] Comment on above: Performed By: #### L 503.7505, L500.2500, L100.0100 ####[facility] [address] [place], [address] Platelets (Bld) [#/Vol] 120 10*3/uL Low 150-450 [facility] Comment on above: Performed By: #### L 503.7505, L500.2500, L100.0100 ####[facility] [address] [place], [address] RBC (Bld) [#/Vol] 4.12 10*6/uL Low 4.6-6.2 [facility] Comment on above: Performed By: #### L 503.7505, L500.2500, L100.0100 ####[facility] [address] [place], [address] RDW SD 47.8 fl High 35.1-43.9 [facility] Comment on above: Performed By: #### L 503.7505, L500.2500, L100.0100 ####[facility] [address] [place], [address] WBC (Bld) [#/Vol] 6.2 10*3/uL Normal 4.4-11.0 [facility] Comment on above: Performed By: #### L 503.7505, L500.2500, L100.0100 ####[facility] [address] [place], [address] Carbon dioxide, total [Moles /volume] in Central venous bloodOrdered By: Marycarmen Rodriguez on 11-09-2024 CO2 [Moles/Vol] 22.5 mmol/L 21.0-32.0 [facility] Chloride assayOrdered By: Ap Rodriguez on 11-09-2024 Chloride [Moles/Vol] 102 mmol/L 98-108 [facility] Eosinophil percentageOrdered By: Marycarmen Rodriguez on 11-09-2024 Eosinophils/100 WBC (Bld) 2.4 % 0-5 [facility] Erythrocyte distribution wid th ratioOrdered By: Marycarmen Rodriguez on 11-09-2024 Erythrocyte distribution width (RBC) [Ratio] 14.1 % 11.6-14.6 [facility] Erythrocyte distribution wid th standard deviationOrdered By: Marycarmen Rodriguez on 11-09-2024 Erythrocyte distribution width (RBC) [Ratio] 47.8 fl High 35.1-43.9 [facility] Glomerular filtration rate ( GFR) estimation/1.73 sq m using serum, plasma, or whole bOrdered By: Marycarmen Rodriguez on 11-09-2024 GFR/1.73 sq M.predicted among non-blacks MDRD (S/P/Bld) [Vol rate/Area] 26 mL/min/{1.73_m2} Low >60 [facility] Comment on above: mL/min/1.73m2 CKD-EP I Creatinine Equation (2020) Hematocrit Auto (Bld) [Volum e fraction]Ordered By: Marycarmen Rodriguez on 11-09-2024 Hematocrit (Bld) [Volume fraction] 38.2 % Low 40-54 [facility] Hemoglobin measurementOrdere d By: Marycarmen Rodriguez on 11-09-2024 Hemoglobin (Bld) [Mass/Vol] 12.2 g/dL Low 13.0-16.5 [facility] Immature granulocytes/100 WB C Auto (Bld)Ordered By: Marycarmen Rodriguez on 11-09-2024 Immature granulocytes/100 WBC (Bld) 0.500 % 0.0-0.9 [facility] Comment on above: IG% - Immature Granu locytes (promyelocytes, myelocytes and metamyelocytes) > 1% indicates that a LEFT SHIFT is Present. L503.7505on 11-09-2024 Natriuretic peptide B (Bld) [Mass/Vol] 91 pg/mL Normal <=1800 [facility] Comment on above: Result Comment: Hear t Failure Unlikely: < 300 pg/mLHeart Failure Likely< 50 Years: > 450 pg/mL50-75 Years: > 900 pg/mL>75 Years: > 1800 pg/mL Performed By: #### L 503.7505, L500.2500, L100.0100 ####[facility] [address] [place], [address] MCV (mean corpuscular volume ) determinationOrdered By: Marycarmen Rodriguez on 11-09-2024 MCV (RBC) [Entitic vol] 92.7 fL 80-94 [facility] Mean corpuscular hemoglobin (MCH) determinationOrdered By: Marycarmen Rodriguez on 11-09-2024 MCH (RBC) [Entitic mass] 29.6 pg 27.0-32.0 [facility] Mean corpuscular hemoglobin concentration (MCHC) determinationOrdered By: Marycarmen Rodriguez on 11-09-2024 MCHC (RBC) [Mass/Vol] 31.9 g/dL Low 32-[address] [facility] Mean platelet volume determi nationOrdered By: Marycarmen Rodriguez on 11-09-2024 Platelet mean volume (Bld) [Entitic vol] 12.7 fL High 6.2-12.0 [facility] Monocyte percentageOrdered B y: Marycarmen Rodriguez on 11-09-2024 Monocytes/100 WBC (Bld) 10.4 % High 0-10 [facility] Natriuretic peptide.B prohor efrem N-Terminal [Mass/volume] in Serum or PlasmaOrdered By: Marycarmen Rodriguez on 11-09-2024 Natriuretic peptide.B prohormone N-Terminal [Mass/Vol] 91 pg/mL <1800 [facility] Comment on above: Heart Failure Unlike ly: < 300 pg/mLHeart Failure Likely< 50 Years: > 450 pg/mL50-75 Years: > 900 pg/mL>75 Years: > 1800 pg/mL Neutrophil percentageOrdered By: Marycarmen Rodriguez on 11-09-2024 Neutrophils/100 WBC (Bld) 66.5 % 47-70 [facility] Nucleated red blood cell per centageOrdered By: Marycarmen Rodriguez on 11-09-2024 Nucleated RBC/100 WBC (Bld) [Ratio] 0 % 0-5 [facility] Platelet countOrdered By: Ap Rodriguez on 11-09-2024 Platelets (Bld) [#/Vol] 120 10*3/uL Low 150-450 [facility] Potassium measurement (mass/ volume)Ordered By: Marycarmen Rodriguez on 11-09-2024 Potassium (Unsp spec) [Mass/Vol] 4.6 mmol/L 3.3-5.1 [facility] RBC Auto (Bld) [#/Vol]Ordere d By: Marycarmen Rodriguez on 11-09-2024 RBC (Bld) [#/Vol] 4.12 10*6/uL Low 4.6-6.2 [facility] Serum creatinine measurement (mass/volume)Ordered By: Marycarmen Rodriguez on 11-09-2024 Creatinine [Mass/Vol] 2.49 mg/dL High 0.70-1.[address] [facility] Serum glucose measurement (m ass/volume)Ordered By: Marycarmen Rodriguez on 11-09-2024 Glucose [Mass/Vol] 169 mg/dL High 70-99 [facility] Serum or plasma calcium francine urement (mass/volume)Ordered By: Marycarmen Rodriguez on 11-09-2024 Calcium [Mass/Vol] 9.3 mg/dL 7.6-11.0 [facility] Serum or plasma urea nitroge n measurement (mass/volume)Ordered By: Marycarmen Rodriguez on 11-09-2024 Urea nitrogen [Mass/Vol] 49 mg/dL High 4-19 [facility] Sodium levelOrdered By: Marycarmen Rodriguez on 11-09-2024 Sodium [Moles/Vol] 139 mmol/L 133-145 [facility] White blood cell (WBC) count Ordered By: Marycarmen Rodriguez on 11-09-2024 WBC (Bld) [#/Vol] 6.2 10*3/uL 4.4-11.0 [facility] Pulmonary Visit Reporton Pulmonary Visit Report Normal [facility] Cardiology Visit Reporton Cardiology Visit Report Normal [facility] [id number] 10-23-2024 [facility] Misc. COMMENT Normal . [facility] Comment on above: Order Comment: [id number] 0MED TOX Result Comment: Test Ordered: [id number] U69-Cfgmba+YQ8Vqabotzrjdiu Screen, Urine Negative ng/mL UI Reference Range: Ouaclm=639Iiwhgkdmzhe test includes Amphetamine and Methamphetamine.Barbiturates Negative ng/mL UI Reference Range: Qfvcnm=617Qkdabyfoexbtmhq Negative ng/mL UI Reference Range: Jjlotp=598Hyvhewg (Metab.), Urine Negative ng/mL UI Reference Range: Dicdnm=990Oqsrlvp Note: ng/mL UI See Final Results Reference Range: Hfosek=209Kjtapm test includes Codeine, Morphine, Hydromorphone, Hydrocodone.Opiates Positive [A ] UI Reference Range: Fhgkme=892Lcoudf test includes Codeine, Morphine, Hydromorphone, Hydrocodone.Codeine Negative UI Reference Range: Yepslo=923Smehaody Negative UI Reference Range: Mzrptc=259Ioynnjpzqxvjg Negative UI Reference Range: Vqlaxs=280Mxesmwnkxyf Positive [A ] UI Reference Range: .Hydrocodone Conf, MS, UR 349 ng/mL UI Reference Range: Hffyyg=3338-Prumvyvhgmxauz, Urine Negative ng/mL UI Reference Range: Cutoff=10Oxycodone/Oxymorphone, Urine Negative ng/mL UI Reference Range: Vhewsf=792Khpw includes Oxycodone and OxymorphonePCP, Urine Negative ng/mL UI Reference Range: Cutoff=25Methadone Screen, Urine Negative ng/mL UI Reference Range: Urieqb=097Vcukwyhrqogd, Urine Negative ng/mL UI Reference Range: Ywqdmv=711Osryixud, Urine Negative ng/mL UI Reference Range: Cutoff=2.0Test includes Fentanyl and NorfentanylThis test was developed and its performance characteristicsdetermined by [facility]. It has not been cleared orapproved by the Food and Drug Administration.Tramadol Negative ng/mL UI Reference Range: Irabkw=949Rdjwmvjotkvqt, Urine Negative ng/mL UI Reference Range: Cutoff=10Creatinine, Urine 36.9 mg/dL UI Reference Range: 20.0-300.0pH, Urine 6.1 UI Reference Range: 4.5-8.9Performed at: UI - [facility] [id number] [place], [place] [id number] Director: Erik Wallis PhD, Phone: [phone] at: CB - [facility] [address] [place], [place] [id number] Director: Bharath Hawthorne PhD, Phone: [phone] Performed By: #### L 3410.9992, L505.5000 ####[facility] [address] [place], [place], [address] Absolute lymphocyte countOrd ered By: Gustabo Pérez on 10-18-2024 Lymphocytes Auto (Unsp spec) [#/Vol] 1.15 10*3/uL 0.83-4.51 [facility] Absolute neutrophil countOrd ered By: Gustabo Pérez on 10-18-2024 Neutrophils (Bld) [#/Vol] 4.6 10*3/uL 2.0-7.7 [facility] Amphetamine detection with 1 000 ng/mL as cutoffOrdered By: Brooks Carpenter on 10-18-2024 Amphetamines Screen method >1000 ng/mL Ql (U) Negative < 200 ng/mL [facility] Anion gap in Serum or Plasma Ordered By: Gustabo Pérez on 10-18-2024 Anion gap [Moles/Vol] 12 mmol/L 5-[address] [facility] Automated lymphocyte count a s percentage of total leukocytesOrdered By: Gustabo Pérez on 10-18-2024 Lymphocytes/100 WBC Auto (Unsp spec) 17.4 % Low - [facility] BUN/creatinine ratioOrdered By: Gustabo Pérez on 10-18-2024 Urea nitrogen/Creatinine [Mass ratio] 16.4 mg/mg 02-19 [facility] Basic Metabolic Profile (BMP )on 10-18-2024 BUN/CRE 16.4 RATIO Normal 02-19 [facility] Comment on above: Performed By: #### L 500.2500, L100.0100, L503.7505 ####[facility] [address] [place], [address] Calcium [Mass/Vol] 9.0 mg/dL Normal 7.6-11.0 [facility] Comment on above: Performed By: #### L 500.2500, L100.0100, L503.7505 ####[facility] [address] [place], [address] Chloride [Moles/Vol] 103 mmol/L Normal 98-108 [facility] Comment on above: Performed By: #### L 500.2500, L100.0100, L503.7505 ####[facility] [address] [place], [address] CO2 [Moles/Vol] 23.9 mmol/L Normal 21.0-32.0 [facility] Comment on above: Performed By: #### L 500.2500, L100.0100, L503.7505 ####[facility] [address] [place], [address] Creatinine [Mass/Vol] 2.00 mg/dL High 0.70-1.[address] [facility] Comment on above: Performed By: #### L 500.2500, L100.0100, L503.7505 ####[facility] [address] [place], [address] GAP 12 Normal 5-15 [facility] Comment on above: Performed By: #### L 500.2500, L100.0100, L503.7505 ####[facility] [address] [place], [address] GFR/1.73 sq M.predicted among non-blacks MDRD (S/P/Bld) [Vol rate/Area] 33 mL/min/{1.73_m2} Low >60 [facility] Comment on above: Result Comment: mL/m in/1.73m2 CKD-EPI Creatinine Equation (2020) Performed By: #### L 500.2500, L100.0100, L503.7505 ####[facility] [address] [place], [address] Glucose [Mass/Vol] 125 mg/dL High 70-99 [facility] Comment on above: Performed By: #### L 500.2500, L100.0100, L503.7505 ####[facility] [address] [place], [address] Potassium [Moles/Vol] 4.8 mmol/L Normal 3.3-5.[address] [facility] Comment on above: Performed By: #### L 500.2500, L100.0100, L503.7505 ####[facility] [address] [place], [address] Sodium [Moles/Vol] 139 mmol/L Normal 133-145 [facility] Comment on above: Performed By: #### L 500.2500, L100.0100, L503.7505 ####[facility] [address] [place], [address] Urea nitrogen [Mass/Vol] 33 mg/dL High 4-19 [facility] Comment on above: Performed By: #### L 500.2500, L100.0100, L503.7505 ####[facility] [address] [place], [address] Basophil percentageOrdered B y: Gustabo Pérez on 10-18-2024 Basophils/100 WBC (Bld) 0.2 % 0-1 [facility] CBC W/Diff, Automatedon 10-01 Absolute Lymph 1.15 X10 3/uL Normal 0.83-4.51 [facility] Comment on above: Performed By: #### L 500.2500, L100.0100, L503.7505 ####[facility] [address] [place], [address] Absolute Neut 4.6 X10 3/uL Normal 2.0-7.7 [facility] Comment on above: Performed By: #### L 500.2500, L100.0100, L503.7505 ####[facility] [address] [place], [address] Basophils/100 WBC (Bld) 0.2 % Normal 0-1 [facility] Comment on above: Performed By: #### L 500.2500, L100.0100, L503.7505 ####[facility] [address] [place], [address] Eosinophils/100 WBC (Bld) 2.0 % Normal 0-5 [facility] Comment on above: Performed By: #### L 500.2500, L100.0100, L503.7505 ####[facility] [address] [place], [address] Erythrocyte distribution width (RBC) [Ratio] 14.3 % Normal 11.6-14.6 [facility] Comment on above: Performed By: #### L 500.2500, L100.0100, L503.7505 ####[facility] [address] [place], [address] Hematocrit (Bld) [Volume fraction] 36.4 % Low 40-54 [facility] Comment on above: Performed By: #### L 500.2500, L100.0100, L503.7505 ####[facility] [address] [place], [address] Hemoglobin (Bld) [Mass/Vol] 11.5 g/dL Low 13.0-16.5 [facility] Comment on above: Performed By: #### L 500.2500, L100.0100, L503.7505 ####[facility] [address] [place], [address] IG% 0.600 Normal 0.0-0.9 [facility] Comment on above: Result Comment: IG% - Immature Granulocytes (promyelocytes, myelocytes andmetamyelocytes) > 1% indicates that a LEFT SHIFT is Present. Performed By: #### L 500.2500, L100.0100, L503.7505 ####[facility] [address] [place], [address] Lymphocytes/100 WBC (Bld) 17.4 % Low 19-41 [facility] Comment on above: Performed By: #### L 500.2500, L100.0100, L503.7505 ####[facility] [address] [place], [address] MCH (RBC) [Entitic mass] 29.4 pg Normal 27.0-32.0 [facility] Comment on above: Performed By: #### L 500.2500, L100.0100, L503.7505 ####[facility] [address] [place], [address] MCHC (RBC) [Mass/Vol] 31.6 g/dL Low 32-[address] [facility] Comment on above: Performed By: #### L 500.2500, L100.0100, L503.7505 ####[facility] [address] [place], [address] MCV (RBC) [Entitic vol] 93.1 fL Normal 80-94 [facility] Comment on above: Performed By: #### L 500.2500, L100.0100, L503.7505 ####[facility] [address] [place], [address] Monocytes/100 WBC (Bld) 10.4 % High 0-10 [facility] Comment on above: Performed By: #### L 500.2500, L100.0100, L503.7505 ####[facility] [address] [place], [address] Neutrophils/100 WBC (Bld) 69.4 % Normal 47-70 [facility] Comment on above: Performed By: #### L 500.2500, L100.0100, L503.7505 ####[facility] [address] [place], [address] Nucleated RBC (Bld) [#/Vol] 0 10*3/uL Normal 0-5 [facility] Comment on above: Performed By: #### L 500.2500, L100.0100, L503.7505 ####[facility] [address] [place], [address] Platelet mean volume (Bld) [Entitic vol] 12.9 fL High 6.2-12.0 [facility] Comment on above: Performed By: #### L 500.2500, L100.0100, L503.7505 ####[facility] [address] [place], [address] Platelets (Bld) [#/Vol] 152 10*3/uL Normal 150-450 [facility] Comment on above: Performed By: #### L 500.2500, L100.0100, L503.7505 ####[facility] [address] [place], [address] RBC (Bld) [#/Vol] 3.91 10*6/uL Low 4.6-6.2 [facility] Comment on above: Performed By: #### L 500.2500, L100.0100, L503.7505 ####[facility] [address] [place], [address] RDW SD 48.5 fl High 35.1-43.9 [facility] Comment on above: Performed By: #### L 500.2500, L100.0100, L503.7505 ####[facility] [address] [place], [address] WBC (Bld) [#/Vol] 6.6 10*3/uL Normal 4.4-11.0 [facility] Comment on above: Performed By: #### L 500.2500, L100.0100, L503.7505 ####[facility] [address] [place], [address] Carbon dioxide, total [Moles /volume] in Central venous bloodOrdered By: Gustabo Pérez on 10-18-2024 CO2 [Moles/Vol] 23.9 mmol/L 21.0-32.0 [facility] Chloride assayOrdered By: Lydia Pérez on 10-18-2024 Chloride [Moles/Vol] 103 mmol/L 98-108 [facility] Eosinophil percentageOrdered By: Gustabo Pérez on 10-18-2024 Eosinophils/100 WBC (Bld) 2.0 % 0-5 [facility] Erythrocyte distribution wid th ratioOrdered By: Gustabo Pérez on 10-18-2024 Erythrocyte distribution width (RBC) [Ratio] 14.3 % 11.6-14.6 [facility] Erythrocyte distribution wid th standard deviationOrdered By: Gustabo Pérez on 10-18-2024 Erythrocyte distribution width (RBC) [Ratio] 48.5 fl High 35.1-43.9 [facility] Glomerular filtration rate ( GFR) estimation/1.73 sq m using serum, plasma, or whole bOrdered By: Gustabo Pérez on 10-18-2024 GFR/1.73 sq M.predicted among non-blacks MDRD (S/P/Bld) [Vol rate/Area] 33 mL/min/{1.73_m2} Low >60 [facility] Comment on above: mL/min/1.73m2 CKD-EP I Creatinine Equation (2020) Hematocrit Auto (Bld) [Volum e fraction]Ordered By: Gustabo Pérez on 10-18-2024 Hematocrit (Bld) [Volume fraction] 36.4 % Low 40-54 [facility] Hemoglobin measurementOrdere d By: Gustabo Pérez on 10-18-2024 Hemoglobin (Bld) [Mass/Vol] 11.5 g/dL Low 13.0-16.5 [facility] Immature granulocytes/100 WB C Auto (Bld)Ordered By: Gustabo Pérez on 10-18-2024 Immature granulocytes/100 WBC (Bld) 0.600 % 0.0-0.9 [facility] Comment on above: IG% - Immature Granu locytes (promyelocytes, myelocytes and metamyelocytes) > 1% indicates that a LEFT SHIFT is Present. L503.7505on 10-18-2024 Natriuretic peptide B (Bld) [Mass/Vol] 200 pg/mL Normal <=1800 [facility] Comment on above: Result Comment: Hear t Failure Unlikely: < 300 pg/mLHeart Failure Likely< 50 Years: > 450 pg/mL50-75 Years: > 900 pg/mL>75 Years: > 1800 pg/mL Performed By: #### L 500.2500, L100.0100, L503.7505 ####[facility] [address] [place], [place], [id number] MCV (mean corpuscular volume ) determinationOrdered By: Gustabo Pérez on 10-18-2024 MCV (RBC) [Entitic vol] 93.1 fL 80-94 [facility] Mean corpuscular hemoglobin (MCH) determinationOrdered By: Gustabo Pérez on 10-18-2024 MCH (RBC) [Entitic mass] 29.4 pg 27.0-32.0 [facility] Mean corpuscular hemoglobin concentration (MCHC) determinationOrdered By: Gustabo Pérez on 10-18-2024 MCHC (RBC) [Mass/Vol] 31.6 g/dL Low 32-[address] [facility] Mean platelet volume determi nationOrdered By: Gustabo Pérez on 10-18-2024 Platelet mean volume (Bld) [Entitic vol] 12.9 fL High 6.2-12.0 [facility] Monocyte percentageOrdered B y: Gustabo Pérez on 10-18-2024 Monocytes/100 WBC (Bld) 10.4 % High 0-10 [facility] Natriuretic peptide.B prohor efrem N-Terminal [Mass/volume] in Serum or PlasmaOrdered By: Gustabo Pérez on 10-18-2024 Natriuretic peptide.B prohormone N-Terminal [Mass/Vol] 200 pg/mL <1800 [facility] Comment on above: Heart Failure Unlike ly: < 300 pg/mLHeart Failure Likely< 50 Years: > 450 pg/mL50-75 Years: > 900 pg/mL>75 Years: > 1800 pg/mL Neutrophil percentageOrdered By: Gustabo Pérez on 10-18-2024 Neutrophils/100 WBC (Bld) 69.4 % 47-70 [facility] No Panel InformationOrdered By: Brooks Carpenter on 10-18-2024 Urine Buprenorphine Qualitative Negative < 200 ng/mL [facility] Urine Oxycodone Screen Negative < 100 ng/mL [facility] Negative < 200 ng/mL [facility] Nucleated red blood cell per centageOrdered By: Gustabo Pérez on 10-18-2024 Nucleated RBC/100 WBC (Bld) [Ratio] 0 % 0-5 [facility] Platelet countOrdered By: Lydia Pérez on 10-18-2024 Platelets (Bld) [#/Vol] 152 10*3/uL 150-450 [facility] Potassium measurement (mass/ volume)Ordered By: Gustabo Pérez on 10-18-2024 Potassium (Unsp spec) [Mass/Vol] 4.8 mmol/L 3.3-5.1 [facility] Quantitative urine opiates m easurementOrdered By: Brooks Carpenter on 10-18-2024 Opiates Ql (U) Positive < 300 ng/mL [facility] Comment on above: If confirmation test ing is needed, a separate order will be required to send out testing to the reference laboratory. RBC Auto (Bld) [#/Vol]Ordere d By: Gustabo Pérez on 10-18-2024 RBC (Bld) [#/Vol] 3.91 10*6/uL Low 4.6-6.2 [facility] Screening urine fentanyl ritu surementOrdered By: Brooks Carpenter on 10-18-2024 fentaNYL Screen Ql (U) Negative [facility] Serum creatinine measurement (mass/volume)Ordered By: Gustbao Pérez on 10-18-2024 Creatinine [Mass/Vol] 2.00 mg/dL High 0.70-1.[address] [facility] Serum glucose measurement (m ass/volume)Ordered By: Gustabo Pérez on 10-18-2024 Glucose [Mass/Vol] 125 mg/dL High 70-99 [facility] Serum or plasma calcium francine urement (mass/volume)Ordered By: Gustabo Pérez on 10-18-2024 Calcium [Mass/Vol] 9.0 mg/dL 7.6-11.0 [facility] Serum or plasma urea nitroge n measurement (mass/volume)Ordered By: Gustabo Pérez on 10-18-2024 Urea nitrogen [Mass/Vol] 33 mg/dL High 4-19 [facility] Sodium levelOrdered By: Gustabo Pérez on 10-18-2024 Sodium [Moles/Vol] 139 mmol/L 133-145 [facility] Urine Drug Screen (VISTA)on 10-18-2024 AMPHETAMINES Negative Normal <1000 ng/mL [facility] Comment on above: Order Comment: PAIN MANAGMENT Performed By: #### L 3410.9992, L505.5000 ####[facility] [address] [facility] [address] BARBITIURATES Negative Normal < 200 ng/mL [facility] Comment on above: Order Comment: PAIN MANAGMENT Performed By: #### L 3410.9992, L505.5000 ####[facility] [address] [facility] [address] BENZODIAZIPINE Negative Normal < 200 ng/mL [facility] Comment on above: Order Comment: PAIN MANAGMENT Performed By: #### L 3410.9992, L505.5000 ####[facility] [address] [facility] [address] BUP Ur Drug Scr Negative Normal < 200 ng/mL [facility] Comment on above: Order Comment: PAIN MANAGMENT Performed By: #### L 3410.9992, L505.5000 ####[facility] [address] [facility] [address] COCAINE Negative Normal < 300 ng/mL [facility] Comment on above: Order Comment: PAIN MANAGMENT Performed By: #### L 3410.9992, L505.5000 ####[facility] [address] [facility] [address] [facility] Comment on above: Order Comment: PAIN MANAGMENT Performed By: #### L 3410.9992, L505.5000 ####[facility] [address] [place], [address] METHADONE Negative Normal < 300 ng/mL [facility] Comment on above: Order Comment: PAIN MANAGMENT Performed By: #### L 3410.9992, L505.5000 ####[facility] [address] [place], [address] OPIATES Positive Normal < 300 ng/mL [facility] Comment on above: Order Comment: PAIN MANAGMENT Result Comment: If c onfirmation testing is needed, a separate order will berequired to send out testing to the reference laboratory. Performed By: #### L 3410.9992, L505.5000 ####[facility] [address] [place], [address] OXYCODONE Negative Normal < 100 ng/mL [facility] Comment on above: Order Comment: PAIN MANAGMENT Performed By: #### L 3410.9992, L505.5000 ####[facility] [address] [place], [address] PCP Negative Normal < 25 ng/mL [facility] Comment on above: Order Comment: PAIN MANAGMENT Performed By: #### L 3410.9992, L505.5000 ####[facility] [address] [place], [address] THC Negative Normal < 50 ng/mL [facility] Comment on above: Order Comment: PAIN MANAGMENT Performed By: #### L 3410.9992, L505.5000 ####[facility] [address] [place], [address] Urine benzodiazepine levelOr dered By: Brooks Carpenter on 10-18-2024 Benzodiazepines Ql (U) Negative < 200 ng/mL [facility] Urine cocaine levelOrdered B y: Brooks Basali on 10-18-2024 Cocaine Ql (U) Negative < 300 ng/mL [facility] Urine jxtfa-4-awkhkftyuhgrei abinol (THC) measurementOrdered By: Brooks Carpenter on 10-18-2024 Cannabinoids Screen Ql (U) Negative < 50 ng/mL [facility] Urine phencyclidine (PCP) de tectionOrdered By: Brooks Carpenter on 10-18-2024 Phencyclidine Ql (U) Negative < 25 ng/mL [facility] White blood cell (WBC) count Ordered By: Gustabo Pérez on 10-18-2024 WBC (Bld) [#/Vol] 6.6 10*3/uL 4.4-11.0 [facility] Absolute lymphocyte countOrd ered By: Marycarmen Jennifer on 09-29-2024 Lymphocytes Auto (Unsp spec) [#/Vol] 1.35 10*3/uL 0.83-4.51 [facility] Absolute neutrophil countOrd ered By: Marycarmen Rodriguez on 09-29-2024 Neutrophils (Bld) [#/Vol] 9.2 10*3/uL High 2.0-7.7 [facility] Automated lymphocyte count a s percentage of total leukocytesOrdered By: Marycarmen Rodriguez on 09-29-2024 Lymphocytes/100 WBC Auto (Unsp spec) 10.9 % Low 19-41 [facility] Basophil percentageOrdered B y: Marycarmen Rodriguez on 09-29-2024 Basophils/100 WBC (Bld) 0.6 % 0-1 [facility] CBC W/Diff, Automatedon 09-02 Absolute Lymph 1.35 X10 3/uL Normal 0.83-4.51 [facility] Comment on above: Performed By: #### L 503.0106, L100.0100, L503.6550, L503.6150 ####[facility] [address] [place], [address] Absolute Neut 9.2 X10 3/uL High 2.0-7.7 [facility] Comment on above: Performed By: #### L 503.0106, L100.0100, L503.6550, L503.6150 ####[facility] [address] [place], [address] Basophils/100 WBC (Bld) 0.6 % Normal 0-1 [facility] Comment on above: Performed By: #### L 503.0106, L100.0100, L503.6550, L503.6150 ####[facility] [address] [place], [address] Eosinophils/100 WBC (Bld) 0.7 % Normal 0-5 [facility] Comment on above: Performed By: #### L 503.0106, L100.0100, L503.6550, L503.6150 ####[facility] [address] [place], [address] Erythrocyte distribution width (RBC) [Ratio] 14.2 % Normal 11.6-14.6 [facility] Comment on above: Performed By: #### L 503.0106, L100.0100, L503.6550, L503.6150 ####[facility] [address] [place], [address] Hematocrit (Bld) [Volume fraction] 37.4 % Low 40-54 [facility] Comment on above: Performed By: #### L 503.0106, L100.0100, L503.6550, L503.6150 ####[facility] [address] [place], [address] Hemoglobin (Bld) [Mass/Vol] 12.1 g/dL Low 13.0-16.5 [facility] Comment on above: Performed By: #### L 503.0106, L100.0100, L503.6550, L503.6150 ####[facility] [address] [place], [address] IG% 3.600 High 0.0-0.9 [facility] Comment on above: Result Comment: IG% - Immature Granulocytes (promyelocytes, myelocytes andmetamyelocytes) > 1% indicates that a LEFT SHIFT is Present. Performed By: #### L 503.0106, L100.0100, L503.6550, L503.6150 ####[facility] [address] [place], [address] Lymphocytes/100 WBC (Bld) 10.9 % Low 19-41 [facility] Comment on above: Performed By: #### L 503.0106, L100.0100, L503.6550, L503.6150 ####[facility] [address] [place], [address] MCH (RBC) [Entitic mass] 29.6 pg Normal 27.0-32.0 [facility] Comment on above: Performed By: #### L 503.0106, L100.0100, L503.6550, L503.6150 ####[facility] [address] [place], [address] MCHC (RBC) [Mass/Vol] 32.4 g/dL Normal 32-[address] [facility] Comment on above: Performed By: #### L 503.0106, L100.0100, L503.6550, L503.6150 ####[facility] [address] [place], [address] MCV (RBC) [Entitic vol] 91.4 fL Normal 80-94 [facility] Comment on above: Performed By: #### L 503.0106, L100.0100, L503.6550, L503.6150 ####[facility] [address] [place], [address] Monocytes/100 WBC (Bld) 9.9 % Normal 0-10 [facility] Comment on above: Performed By: #### L 503.0106, L100.0100, L503.6550, L503.6150 ####[facility] [address] [place], [address] Neutrophils/100 WBC (Bld) 74.3 % High 47-70 [facility] Comment on above: Performed By: #### L 503.0106, L100.0100, L503.6550, L503.6150 ####[facility] [address] [place], [address] Nucleated RBC (Bld) [#/Vol] 0 10*3/uL Normal 0-5 [facility] Comment on above: Performed By: #### L 503.0106, L100.0100, L503.6550, L503.6150 ####[facility] [address] [place], [address] Platelet mean volume (Bld) [Entitic vol] 12.3 fL High 6.2-12.0 [facility] Comment on above: Performed By: #### L 503.0106, L100.0100, L503.6550, L503.6150 ####[facility] [address] [place], [address] Platelets (Bld) [#/Vol] 169 10*3/uL Normal 150-450 [facility] Comment on above: Performed By: #### L 503.0106, L100.0100, L503.6550, L503.6150 ####[facility] [address] [place], [address] RBC (Bld) [#/Vol] 4.09 10*6/uL Low 4.6-6.2 [facility] Comment on above: Performed By: #### L 503.0106, L100.0100, L503.6550, L503.6150 ####[facility] [address] [place], [address] RDW SD 47.4 fl High 35.1-43.9 [facility] Comment on above: Performed By: #### L 503.0106, L100.0100, L503.6550, L503.6150 ####[facility] [address] [place], [address] WBC (Bld) [#/Vol] 12.4 10*3/uL High 4.4-11.0 [facility] Comment on above: Performed By: #### L 503.0106, L100.0100, L503.6550, L503.6150 ####[facility] [address] [place], [place], [phone] Eosinophil percentageOrdered By: Marycarmen Rodriguez on 09-29-2024 Eosinophils/100 WBC (Bld) 0.7 % 0-5 [facility] Erythrocyte distribution wid th ratioOrdered By: Marycarmen Rodriguez on 09-29-2024 Erythrocyte distribution width (RBC) [Ratio] 14.2 % 11.6-14.6 [facility] Erythrocyte distribution wid th standard deviationOrdered By: Marycarmen Rodriguez on 09-29-2024 Erythrocyte distribution width (RBC) [Ratio] 47.4 fl High 35.1-43.9 [facility] Ferritinon 09-29-2024 Ferritin [Mass/Vol] 454 ng/mL High 37-417 [facility] Comment on above: Performed By: #### L 503.0106, L100.0100, L503.6550, L503.6150 ####[facility] [address] [place], [place], [phone] Hematocrit Auto (Bld) [Volum e fraction]Ordered By: Marycarmen Rodriguez on 09-29-2024 Hematocrit (Bld) [Volume fraction] 37.4 % Low 40-54 [facility] Hemoglobin measurementOrdere d By: Marycarmen Rodriguez on 09-29-2024 Hemoglobin (Bld) [Mass/Vol] 12.1 g/dL Low 13.0-16.5 [facility] Immature granulocytes/100 WB C Auto (Bld)Ordered By: Marycarmen Rodriguez on 09-29-2024 Immature granulocytes/100 WBC (Bld) 3.600 % High 0.0-0.9 [facility] Comment on above: IG% - Immature Granu locytes (promyelocytes, myelocytes and metamyelocytes) > 1% indicates that a LEFT SHIFT is Present. Ironon 09-29-2024 Iron [Mass/Vol] 80 ug/dL Normal 65-175 [facility] Comment on above: Performed By: #### L 503.0106, L100.0100, L503.6550, L503.6150 ####[facility] [address] [place], [address] Iron measurement (mass/mass) Ordered By: Marycarmen Rodriguez on 09-29-2024 Iron (Unsp spec) [Mass/Mass] 80 ug/dL 65-175 [facility] MCV (mean corpuscular volume ) determinationOrdered By: Marycarmen Rodriguez on 09-29-2024 MCV (RBC) [Entitic vol] 91.4 fL 80-94 [facility] Mean corpuscular hemoglobin (MCH) determinationOrdered By: Marycarmen Rodriguez on 09-29-2024 MCH (RBC) [Entitic mass] 29.6 pg 27.0-32.0 [facility] Mean corpuscular hemoglobin concentration (MCHC) determinationOrdered By: Marycarmen Rodriguez on 09-29-2024 MCHC (RBC) [Mass/Vol] 32.4 g/dL 32-[address] [facility] Mean platelet volume determi nationOrdered By: Marycarmen Rodriguez on 09-29-2024 Platelet mean volume (Bld) [Entitic vol] 12.3 fL High 6.2-12.0 [facility] Monocyte percentageOrdered B y: Marycarmen Rodriguez on 09-29-2024 Monocytes/100 WBC (Bld) 9.9 % 0-10 [facility] Neutrophil percentageOrdered By: Marycarmen Rodriguez on 09-29-2024 Neutrophils/100 WBC (Bld) 74.3 % High 47-70 [facility] Nucleated red blood cell per centageOrdered By: Marycarmen Rodriguez on 09-29-2024 Nucleated RBC/100 WBC (Bld) [Ratio] 0 % 0-5 [facility] Platelet countOrdered By: Ap Rodriguez on 09-29-2024 Platelets (Bld) [#/Vol] 169 10*3/uL 150-450 [facility] RBC Auto (Bld) [#/Vol]Ordere d By: Marycarmen Rodriguez on 09-29-2024 RBC (Bld) [#/Vol] 4.09 10*6/uL Low 4.6-6.2 [facility] Serum or plasma ferritin ritu surement (mass/volume)Ordered By: Marycarmen Rodriguez on 09-29-2024 Ferritin [Mass/Vol] 454 ng/mL High 37-417 [facility] Vitamin B12on 09-29-2024 Cobalamin (Vitamin B12) [Mass/Vol] 766 pg/mL Normal 180-914 [facility] Comment on above: Performed By: #### L 503.0106, L100.0100, L503.6550, L503.6150 ####[facility] [address] [place], [place], [address] Vitamin B12 ser/plasOrdered By: Marycarmen Rodriguez on 09-29-2024 Cobalamin (Vitamin B12) [Mass/Vol] 766 pg/mL 180-914 [facility] White blood cell (WBC) count Ordered By: Marycarmen Rodriguez on 09-29-2024 WBC (Bld) [#/Vol] 12.4 10*3/uL High 4.4-11.0 [facility] Absolute lymphocyte countOrd ered By: ELIAZAR Olivas on 09-20-2024 Lymphocytes Auto (Unsp spec) [#/Vol] 1.44 10*3/uL 0.83-4.51 [facility] Absolute neutrophil countOrd ered By: ELIAZAR Olivas on 09-20-2024 Neutrophils (Bld) [#/Vol] 6.6 10*3/uL 2.0-7.7 [facility] Automated lymphocyte count a s percentage of total leukocytesOrdered By: ELIAZAR Olivas on 09-20-2024 Lymphocytes/100 WBC Auto (Unsp spec) 15.5 % Low 19-41 [facility] Basophil percentageOrdered B y: ELIAZAR Olivas on 09-20-2024 Basophils/100 WBC (Bld) 0.3 % 0-1 [facility] CBC W/Diff, Automatedon 09-01 Absolute Lymph 1.44 X10 3/uL Normal 0.83-4.51 [facility] Comment on above: Performed By: #### L 503.7505, L100.0100 ####[facility] [address] [place], [address] Absolute Neut 6.6 X10 3/uL Normal 2.0-7.7 [facility] Comment on above: Performed By: #### L 503.7505, L100.0100 ####[facility] [address] [place], [address] Basophils/100 WBC (Bld) 0.3 % Normal 0-1 [facility] Comment on above: Performed By: #### L 503.7505, L100.0100 ####[facility] [address] [place], [address] Eosinophils/100 WBC (Bld) 1.5 % Normal 0-5 [facility] Comment on above: Performed By: #### L 503.7505, L100.0100 ####[facility] [address] [place], [address] Erythrocyte distribution width (RBC) [Ratio] 14.1 % Normal 11.6-14.6 [facility] Comment on above: Performed By: #### L 503.7505, L100.0100 ####[facility] [address] [place], [address] Hematocrit (Bld) [Volume fraction] 34.8 % Low 40-54 [facility] Comment on above: Performed By: #### L 503.7505, L100.0100 ####[facility] [address] [place], [address] Hemoglobin (Bld) [Mass/Vol] 11.1 g/dL Low 13.0-16.5 [facility] Comment on above: Performed By: #### L 503.7505, L100.0100 ####[facility] [address] [place], [address] IG% 0.800 Normal 0.0-0.9 [facility] Comment on above: Result Comment: IG% - Immature Granulocytes (promyelocytes, myelocytes andmetamyelocytes) > 1% indicates that a LEFT SHIFT is Present. Performed By: #### L 503.7505, L100.0100 ####[facility] [address] [place], [address] Lymphocytes/100 WBC (Bld) 15.5 % Low 19-41 [facility] Comment on above: Performed By: #### L 503.7505, L100.0100 ####[facility] [address] [place], [address] MCH (RBC) [Entitic mass] 29.4 pg Normal 27.0-32.0 [facility] Comment on above: Performed By: #### L 503.7505, L100.0100 ####[facility] [address] [place], [address] MCHC (RBC) [Mass/Vol] 31.9 g/dL Low 32-[address] [facility] Comment on above: Performed By: #### L 503.7505, L100.0100 ####[facility] [address] [place], [address] MCV (RBC) [Entitic vol] 92.1 fL Normal 80-94 [facility] Comment on above: Performed By: #### L 503.7505, L100.0100 ####[facility] [address] [place], [address] Monocytes/100 WBC (Bld) 11.1 % High 0-10 [facility] Comment on above: Performed By: #### L 503.7505, L100.0100 ####[facility] [address] [place], [address] Neutrophils/100 WBC (Bld) 70.8 % High 47-70 [facility] Comment on above: Performed By: #### L 503.7505, L100.0100 ####[facility] [address] [place], [address] Nucleated RBC (Bld) [#/Vol] 0 10*3/uL Normal 0-5 [facility] Comment on above: Performed By: #### L 503.7505, L100.0100 ####[facility] [address] [place], [address] Platelet mean volume (Bld) [Entitic vol] 12.6 fL High 6.2-12.0 [facility] Comment on above: Performed By: #### L 503.7505, L100.0100 ####[facility] [address] [place], [address] Platelets (Bld) [#/Vol] 166 10*3/uL Normal 150-450 [facility] Comment on above: Performed By: #### L 503.7505, L100.0100 ####[facility] [address] [place], [address] RBC (Bld) [#/Vol] 3.78 10*6/uL Low 4.6-6.2 [facility] Comment on above: Performed By: #### L 503.7505, L100.0100 ####[facility] [address] [place], [address] RDW SD 48.0 fl High 35.1-43.9 [facility] Comment on above: Performed By: #### L 503.7505, L100.0100 ####[facility] [address] [place], [address] WBC (Bld) [#/Vol] 9.3 10*3/uL Normal 4.4-11.0 [facility] Comment on above: Performed By: #### L 503.7505, L100.0100 ####[facility] [address] [place], [place], [id number] Eosinophil percentageOrdered By: ELIAZAR Maren Swensoncharlie on 09-20-2024 Eosinophils/100 WBC (Bld) 1.5 % 0-5 [facility] Erythrocyte distribution wid th ratioOrdered By: ELIAZAR Maren Swensoncharlie on 09-20-2024 Erythrocyte distribution width (RBC) [Ratio] 14.1 % 11.6-14.6 [facility] Erythrocyte distribution wid th standard deviationOrdered By: ELIAZAR Maren Swensoncharlie on 09-20-2024 Erythrocyte distribution width (RBC) [Ratio] 48.0 fl High 35.1-43.9 [facility] Hematocrit Auto (Bld) [Volum e fraction]Ordered By: ELIAZAR Maren Jonatanneelam on 09-20-2024 Hematocrit (Bld) [Volume fraction] 34.8 % Low 40-54 [facility] Hemoglobin measurementOrdere d By: ELIAZAR Maren Cheungneelam on 09-20-2024 Hemoglobin (Bld) [Mass/Vol] 11.1 g/dL Low 13.0-16.5 [facility] Immature granulocytes/100 WB C Auto (Bld)Ordered By: ELIAZAR Maren Swensoncharlie on 09-20-2024 Immature granulocytes/100 WBC (Bld) 0.800 % 0.0-0.9 [facility] Comment on above: IG% - Immature Granu locytes (promyelocytes, myelocytes and metamyelocytes) > 1% indicates that a LEFT SHIFT is Present. L503.7505on 09-20-2024 Natriuretic peptide B (Bld) [Mass/Vol] 84 pg/mL Normal <=1800 [facility] Comment on above: Result Comment: Hear t Failure Unlikely: < 300 pg/mLHeart Failure Likely< 50 Years: > 450 pg/mL50-75 Years: > 900 pg/mL>75 Years: > 1800 pg/mL Performed By: #### L 503.7505, L100.0100 ####[facility] [address] [place], [place], [address] MCV (mean corpuscular volume ) determinationOrdered By: ELIAZAR Olivas on 09-20-2024 MCV (RBC) [Entitic vol] 92.1 fL 80-94 [facility] Mean corpuscular hemoglobin (MCH) determinationOrdered By: ELIAZAR Olivas on 09-20-2024 MCH (RBC) [Entitic mass] 29.4 pg 27.0-32.0 [facility] Mean corpuscular hemoglobin concentration (MCHC) determinationOrdered By: ELIAZAR Olivas on 09-20-2024 MCHC (RBC) [Mass/Vol] 31.9 g/dL Low 32-[address] [facility] Mean platelet volume determi nationOrdered By: ELIAZAR Olivas on 09-20-2024 Platelet mean volume (Bld) [Entitic vol] 12.6 fL High 6.2-12.0 [facility] Monocyte percentageOrdered B y: ELIAZAR Olivas on 09-20-2024 Monocytes/100 WBC (Bld) 11.1 % High 0-10 [facility] Natriuretic peptide.B prohor efrem N-Terminal [Mass/volume] in Serum or PlasmaOrdered By: ELIAZAR Olivas on 09-20-2024 Natriuretic peptide.B prohormone N-Terminal [Mass/Vol] 84 pg/mL <1800 [facility] Comment on above: Heart Failure Unlike ly: < 300 pg/mLHeart Failure Likely< 50 Years: > 450 pg/mL50-75 Years: > 900 pg/mL>75 Years: > 1800 pg/mL Neutrophil percentageOrdered By: ELIAZAR Olivas on 09-20-2024 Neutrophils/100 WBC (Bld) 70.8 % High 47-70 [facility] Nucleated red blood cell per centageOrdered By: ELIAZAR Olivas on 09-20-2024 Nucleated RBC/100 WBC (Bld) [Ratio] 0 % 0-5 [facility] Platelet countOrdered By: ELIAZAR Olivas on 09-20-2024 Platelets (Bld) [#/Vol] 166 10*3/uL 150-450 [facility] Pulmonary Visit Reporton Pulmonary Visit Report Normal [facility] RBC Auto (Bld) [#/Vol]Ordere d By: ELIAZAR Maren Brendon on 09-20-2024 RBC (Bld) [#/Vol] 3.78 10*6/uL Low 4.6-6.2 [facility] White blood cell (WBC) count Ordered By: ELIAZAR Maren Jonatanrejicharlie on 09-20-2024 WBC (Bld) [#/Vol] 9.3 10*3/uL 4.4-11.0 [facility] 6 Minute Walk Teston 025 6 Minute Walk Test Normal [facility] Pulmonary Visit Reporton Pulmonary Visit Report Normal [facility] BUN/creatinine ratioOrdered By: Mraycarmen Rodriguez on 06-30-2024 Urea nitrogen/Creatinine [Mass ratio] 17.4 mg/mg 10-20 [facility] Basic Metabolic Profile (BMP )on 06-30-2024 Anion gap [Moles/Vol] 11 mmol/L Normal 5-[address] [facility] Comment on above: Performed By: #### L 500.2500 ####[facility] [address] [place], [address] BUN/CRE 17.4 RATIO Normal - [facility] Comment on above: Performed By: #### L 500.2500 ####[facility] [address] [place], [address] Calcium [Mass/Vol] 9.7 mg/dL Normal 7.6-11.0 [facility] Comment on above: Performed By: #### L 500.2500 ####[facility] [address] [place], [address] Chloride [Moles/Vol] 105 mmol/L Normal 96-108 [facility] Comment on above: Performed By: #### L 500.2500 ####[facility] [address] [place], [address] CO2 [Moles/Vol] 25.3 mmol/L Normal 22.0-29.0 [facility] Comment on above: Performed By: #### L 500.2500 ####[facility] [address] [place], [address] Creatinine [Mass/Vol] 1.80 mg/dL High 0.70-1.[address] [facility] Comment on above: Performed By: #### L 500.2500 ####[facility] [address] [place], [address] GFR/1.73 sq M.predicted among non-blacks MDRD (S/P/Bld) [Vol rate/Area] 38 mL/min/{1.73_m2} Low >60 [facility] Comment on above: Result Comment: mL/m in/1.73m2 CKD-EPI Creatinine Equation (2020) Performed By: #### L 500.2500 ####[facility] [address] [place], [address] Glucose [Mass/Vol] 112 mg/dL High 70-99 [facility] Comment on above: Performed By: #### L 500.2500 ####[facility] [address] [place], [address] Potassium [Moles/Vol] 4.8 mmol/L Normal 3.3-5.[address] [facility] Comment on above: Performed By: #### L 500.2500 ####[facility] [address] [place], [address] Sodium [Moles/Vol] 141 mmol/L Normal 133-145 [facility] Comment on above: Performed By: #### L 500.2500 ####[facility] [address] [place], [address] Urea nitrogen [Mass/Vol] 31 mg/dL High 4-19 [facility] Comment on above: Performed By: #### L 500.2500 ####[facility] [address] [place], [address] Carbon dioxide measurementOr dered By: Marycarmen Rodriguez on 06-30-2024 CO2 [Moles/Vol] 25.3 mmol/L 22.0-29.0 [facility] Chloride measurementOrdered By: Marycarmen Rodriguez on 06-30-2024 Chloride [Moles/Vol] 105 mmol/L 96-108 [facility] GFR/1.73 sq M.predicted ana lilia g non-blacks MDRD (S/P/Bld) [Vol rate/Area]Ordered By: Marycarmen Rodriguez on 06-30-2024 Estimated GFR (MDRD) Non-Af Amer 38 Low >60 [facility] Comment on above: mL/min/1.73m2 CKD-EP I Creatinine Equation (2020) Glomerular filtration rate ( GFR) estimation/1.73 sq m using serum, plasma, or whole bOrdered By: Marycarmen Rodriguez on 06-30-2024 GFR/1.73 sq M.predicted among non-blacks MDRD (S/P/Bld) [Vol rate/Area] 38 mL/min/{1.73_m2} Low >60 [facility] Comment on above: mL/min/1.73m2 CKD-EP I Creatinine Equation (2020) Serum creatinine measurement (mass/volume)Ordered By: Marycarmen Rodriguez on 06-30-2024 Creatinine [Mass/Vol] 1.80 mg/dL High 0.70-1.[address] [facility] Serum glucose measurement (m ass/volume)Ordered By: Marycarmen Rodriguez on 06-30-2024 Glucose [Mass/Vol] 112 mg/dL High 70-99 [facility] Serum or plasma anion gap de termination (moles/volume)Ordered By: Marycarmen Rodriguez on 06-30-2024 Anion gap [Moles/Vol] 11 mmol/L 5-[address] [facility] Serum or plasma calcium francine urement (mass/volume)Ordered By: Marycarmen Rodriguez on 06-30-2024 Calcium [Mass/Vol] 9.7 mg/dL 7.6-11.0 [facility] Serum or plasma potassium me asurementOrdered By: Marycarmen Rodriguez on 06-30-2024 Potassium [Moles/Vol] 4.8 mmol/L 3.3-5.[address] [facility] Serum or plasma sodium measu rement (moles/volume)Ordered By: Marycarmen Rodriguez on 06-30-2024 Sodium [Moles/Vol] 141 mmol/L 133-145 [facility] Serum or plasma urea nitroge n measurement (mass/volume)Ordered By: Marycarmen Rodriguez on 06-30-2024 Urea nitrogen [Mass/Vol] 31 mg/dL High 4-19 [facility] Absolute neutrophil countOrd ered By: Gustabo Pérez on 04-17-2024 Neutrophils (Bld) [#/Vol] 6.0 10*3/uL 2.0-7.7 [facility] BNP (brain natriuretic pepti de measurement)Ordered By: Gustabo Pérez on 04-17-2024 Natriuretic peptide B (Bld) [Mass/Vol] 37.2 pg/mL 0-100 [facility] BNP,B-Type NATRIURETIC PEPTI Sharon 04-17-2024 Natriuretic peptide B (Bld) [Mass/Vol] 37.2 pg/mL Normal 0-100 [facility] Comment on above: Performed By: #### L 500.2500, L100.0100, L503.6620 ####[facility] [address] [place], [address] Basic Metabolic Profile (BMP )on 04-17-2024 BUN/CRE 11.2 RATIO Normal 10-20 [facility] Comment on above: Performed By: #### L 500.2500, L100.0100, L503.6620 ####[facility] [address] [place], [address] CA,Total 9.0 mg/dL Normal 8.5-10.1 [facility] Comment on above: Performed By: #### L 500.2500, L100.0100, L503.6620 ####[facility] [address] [place], [address] Chloride [Moles/Vol] 107 mmol/L Normal 98-107 [facility] Comment on above: Performed By: #### L 500.2500, L100.0100, L503.6620 ####[facility] [address] [place], [address] CO2 [Moles/Vol] 27.0 mmol/L Normal 21.0-32.0 [facility] Comment on above: Performed By: #### L 500.2500, L100.0100, L503.6620 ####[facility] [address] [place], [address] Creatinine [Mass/Vol] 1.79 mg/dL High 0.70-1.[address] [facility] Comment on above: Result Comment: The validity of the calculated GFR GFRAA in patients over70 years has not been determined. Clinical correlation isessential. Performed By: #### L 500.2500, L100.0100, L503.6620 ####[facility] [address] [place], [address] EST GFR - AA 47 mL/min Low >60 [facility] Comment on above: Result Comment: Afri can Iraqi GFR Calc Performed By: #### L 500.2500, L100.0100, L503.6620 ####[facility] [address] [place], [address] GAP 4 Low 5-15 [facility] Comment on above: Performed By: #### L 500.2500, L100.0100, L503.6620 ####[facility] [address] [place], [address] GFR/1.73 sq M.predicted among non-blacks MDRD (S/P/Bld) [Vol rate/Area] 39 mL/min/{1.73_m2} Low >60 [facility] Comment on above: Result Comment: Non- GFR Calc Performed By: #### L 500.2500, L100.0100, L503.6620 ####[facility] [address] [place], [address] Glucose [Mass/Vol] 228 mg/dL High 74-106 [facility] Comment on above: Result Comment: Gluc ose result greater than or equal to 200 mg/dLsuggests DIABETES MELLITUS per A.D.A. criteria. Performed By: #### L 500.2500, L100.0100, L503.6620 ####[facility] [address] [place], [address] Potassium [Moles/Vol] 4.8 mmol/L Normal 3.5-5.[address] [facility] Comment on above: Performed By: #### L 500.2500, L100.0100, L503.6620 ####[facility] [address] [place], [address] Sodium [Moles/Vol] 138 mmol/L Normal 136-145 [facility] Comment on above: Performed By: #### L 500.2500, L100.0100, L503.6620 ####[facility] [address] [place], [address] Urea nitrogen [Mass/Vol] 20 mg/dL High 7-18 [facility] Comment on above: Performed By: #### L 500.2500, L100.0100, L503.6620 ####[facility] [address] [place], [address] Basophil percentageOrdered B y: Gustabo Pérez on 04-17-2024 Basophils/100 WBC (Bld) 0.5 % 0-1 [facility] Blood urea nitrogen (BUN)/cr eatinine ratioOrdered By: Gustabo Pérez on 04-17-2024 Urea nitrogen/Creatinine [Mass ratio] 11.2 mg/mg 10-20 [facility] CBC W/Diff, Automatedon 12- Absolute Lymph 1.29 X10 3/uL Normal 0.83-4.51 [facility] Comment on above: Performed By: #### L 500.2500, L100.0100, L503.6620 ####[facility] [address] [place], [address] Absolute Neut 6.0 X10 3/uL Normal 2.0-7.7 [facility] Comment on above: Performed By: #### L 500.2500, L100.0100, L503.6620 ####[facility] [address] [place], [address] Basophils/100 WBC (Bld) 0.5 % Normal 0-1 [facility] Comment on above: Performed By: #### L 500.2500, L100.0100, L503.6620 ####[facility] [address] [place], [address] Eosinophils/100 WBC (Bld) 1.2 % Normal 0-5 [facility] Comment on above: Performed By: #### L 500.2500, L100.0100, L503.6620 ####[facility] [address] [place], [address] Erythrocyte distribution width (RBC) [Ratio] 13.9 % Normal 11.6-14.6 [facility] Comment on above: Performed By: #### L 500.2500, L100.0100, L503.6620 ####[facility] [address] [place], [address] Hematocrit (Bld) [Volume fraction] 41.0 % Normal 40-54 [facility] Comment on above: Performed By: #### L 500.2500, L100.0100, L503.6620 ####[facility] [address] [place], [address] Hemoglobin (Bld) [Mass/Vol] 13.2 g/dL Normal 13.0-16.5 [facility] Comment on above: Performed By: #### L 500.2500, L100.0100, L503.6620 ####[facility] [address] [place], [address] IG% 0.600 Normal 0.0-0.9 [facility] Comment on above: Result Comment: IG% - Immature Granulocytes (promyelocytes, myelocytes andmetamyelocytes) > 1% indicates that a LEFT SHIFT is Present. Performed By: #### L 500.2500, L100.0100, L503.6620 ####[facility] [address] [place], [address] Lymphocytes/100 WBC (Bld) 15.7 % Low 19-41 [facility] Comment on above: Performed By: #### L 500.2500, L100.0100, L503.6620 ####[facility] [address] [place], [address] MCH (RBC) [Entitic mass] 29.2 pg Normal 27.0-32.0 [facility] Comment on above: Performed By: #### L 500.2500, L100.0100, L503.6620 ####[facility] [address] [place], [address] MCHC (RBC) [Mass/Vol] 32.2 g/dL Normal 32-[address] [facility] Comment on above: Performed By: #### L 500.2500, L100.0100, L503.6620 ####[facility] [address] [place], [address] MCV (RBC) [Entitic vol] 90.7 fL Normal 80-94 [facility] Comment on above: Performed By: #### L 500.2500, L100.0100, L503.6620 ####[facility] [address] [place], [address] Monocytes/100 WBC (Bld) 8.5 % Normal 0-10 [facility] Comment on above: Performed By: #### L 500.2500, L100.0100, L503.6620 ####[facility] [address] [place], [address] Neutrophils/100 WBC (Bld) 73.5 % High 47-70 [facility] Comment on above: Performed By: #### L 500.2500, L100.0100, L503.6620 ####[facility] [address] [place], [address] Nucleated RBC (Bld) [#/Vol] 0 10*3/uL Normal 0-5 [facility] Comment on above: Performed By: #### L 500.2500, L100.0100, L503.6620 ####[facility] [address] [place], [address] Platelet mean volume (Bld) [Entitic vol] 12.3 fL High 6.2-12.0 [facility] Comment on above: Performed By: #### L 500.2500, L100.0100, L503.6620 ####[facility] [address] [place], [address] Platelets (Bld) [#/Vol] 185 10*3/uL Normal 150-450 [facility] Comment on above: Performed By: #### L 500.2500, L100.0100, L503.6620 ####[facility] [address] [place], [address] RBC (Bld) [#/Vol] 4.52 10*6/uL Low 4.6-6.2 [facility] Comment on above: Performed By: #### L 500.2500, L100.0100, L503.6620 ####[facility] [address] [place], [address] RDW SD 46.4 fl High 35.1-43.9 [facility] Comment on above: Performed By: #### L 500.2500, L100.0100, L503.6620 ####[facility] [address] [place], [address] WBC (Bld) [#/Vol] 8.2 10*3/uL Normal 4.4-11.0 [facility] Comment on above: Performed By: #### L 500.2500, L100.0100, L503.6620 ####[facility] [address] [place], [address] Carbon dioxide measurementOr dered By: Gustabo Pérez on 04-17-2024 CO2 [Moles/Vol] 27.0 mmol/L 21.0-32.0 [facility] Cardiology Visit Reporton Cardiology Visit Report Normal [facility] Chloride measurementOrdered By: Gustabo Pérez on 04-17-2024 Chloride [Moles/Vol] 107 mmol/L 98-107 [facility] Eosinophil percentageOrdered By: Gustabo Pérez on 04-17-2024 Eosinophils/100 WBC (Bld) 1.2 % 0-5 [facility] Erythrocyte distribution wid th ratioOrdered By: Gustabo Pérez on 04-17-2024 Erythrocyte distribution width (RBC) [Ratio] 13.9 % 11.6-14.6 [facility] Erythrocyte distribution wid th standard deviationOrdered By: Gustabo Pérez on 04-17-2024 Erythrocyte distribution width (RBC) [Entitic vol] 46.4 fL High 35.1-43.9 [facility] Estimated glomerular filtrat ion rate (GFR) AmericanOrdered By: Gustabo Pérez on 04-17-2024 Estimated GFR (MDRD) Amer 47 mL/min Low >60 [facility] Comment on above: GFR Calc Glomerular filtration rate ( GFR) estimationOrdered By: Gustabo Pérez on 04-17-2024 Estimated GFR (MDRD) Non-Af Amer 39 mL/min Low >60 [facility] Comment on above: Non- GFR Calc Glucose measurementOrdered B y: Gustabo Pérez on 04-17-2024 Glucose [Mass/Vol] 228 mg/dL High 74-106 [facility] Comment on above: Glucose result great er than or equal to 200 mg/dLsuggests DIABETES MELLITUS per A.D.A. criteria. Hematocrit Auto (Bld) [Volum e fraction]Ordered By: Gustabo Pérez on 04-17-2024 Hematocrit (Bld) [Volume fraction] 41.0 % 40-54 [facility] Hemoglobin measurementOrdere d By: Gustabo Pérez on 04-17-2024 Hemoglobin (Bld) [Mass/Vol] 13.2 g/dL 13.0-16.5 [facility] Immature granulocytes/100 WB C Auto (Bld)Ordered By: Gustabo Pérez on 04-17-2024 Immature granulocytes/100 WBC (Bld) 0.600 % 0.0-0.9 [facility] Comment on above: IG% - Immature Granu locytes (promyelocytes, myelocytes and metamyelocytes) > 1% indicates that a LEFT SHIFT is Present. Lymphocytes Auto (Unsp spec) [#/Vol]Ordered By: Gustabo Pérez on 04-17-2024 Lymphocytes (Bld) [#/Vol] 1.29 10*3/uL 0.83-4.51 [facility] Lymphocytes/100 WBC Auto (Un sp spec)Ordered By: Gustabo Pérez on 04-17-2024 Lymphocytes/100 WBC (Bld) 15.7 % Low 19-41 [facility] MCV (mean corpuscular volume ) determinationOrdered By: Gustabo Pérez on 04-17-2024 MCV (RBC) [Entitic vol] 90.7 fL 80-94 [facility] Mean corpuscular hemoglobin (MCH) determinationOrdered By: Gustabo Pérez on 04-17-2024 MCH (RBC) [Entitic mass] 29.2 pg 27.0-32.0 [facility] Mean corpuscular hemoglobin concentration (MCHC) determinationOrdered By: Gustabo Pérez on 04-17-2024 MCHC (RBC) [Mass/Vol] 32.2 g/dL 32-[address] [facility] Mean platelet volume determi nationOrdered By: Gustabo Pérez on 04-17-2024 Platelet mean volume (Bld) [Entitic vol] 12.3 fL High 6.2-12.0 [facility] Monocyte percentageOrdered B y: Gustabo Pérez on 04-17-2024 Monocytes/100 WBC (Bld) 8.5 % 0-10 [facility] Neutrophil percentageOrdered By: Gustabo Pérez on 04-17-2024 Neutrophils/100 WBC (Bld) 73.5 % High 47-70 [facility] Nucleated red blood cell per centageOrdered By: Gustabo Pérez on 04-17-2024 Nucleated RBC/100 WBC (Bld) [Ratio] 0 % 0-5 [facility] Platelet countOrdered By: Lydia Pérez on 04-17-2024 Platelets (Bld) [#/Vol] 185 10*3/uL 150-450 [facility] Potassium measurementOrdered By: Gustabo Pérez on 04-17-2024 Potassium [Moles/Vol] 4.8 mmol/L 3.5-5.[address] [facility] RBC Auto (Bld) [#/Vol]Ordere d By: Gustabo Pérez on 04-17-2024 RBC (Bld) [#/Vol] 4.52 10*6/uL Low 4.6-6.2 [facility] Serum anion gap measurementO rdered By: Gustabo Pérez on 04-17-2024 Anion gap [Moles/Vol] 4 mmol/L Low 5-[address] [facility] Serum or plasma calcium francine urement (mass/volume)Ordered By: Gustabo Pérez on 04-17-2024 Calcium [Mass/Vol] 9.0 mg/dL 8.5-10.1 [facility] Serum or plasma creatinine m easurement (mass/volume)Ordered By: Gustabo Pérez on 04-17-2024 Creatinine [Mass/Vol] 1.79 mg/dL High 0.70-1.[address] [facility] Comment on above: The validity of the calculated GFR & GFRAA in patients over 70 years has not been determined. Clinical correlation is essential. Serum or plasma urea nitroge n measurement (mass/volume)Ordered By: Gustabo Pérez on 04-17-2024 Urea nitrogen [Mass/Vol] 20 mg/dL High 7-18 [facility] Sodium levelOrdered By: Gustabo Pérez on 04-17-2024 Sodium [Moles/Vol] 138 mmol/L 136-145 [facility] White blood cell (WBC) count Ordered By: Gustabo Pérez on 04-17-2024 WBC (Bld) [#/Vol] 8.2 10*3/uL 4.4-11.0 [facility] Office Visit Reporton 2023 Office Visit Report Normal [facility] Albumin to globulin ratioOrd ered By: Jose Hay on 03-23-2024 Albumin/Globulin [Mass ratio] 1.1 {ratio} 0.9-2.4 [facility] Bilirubin, totalOrdered By: Jose Hay on 03-23-2024 Bilirubin [Mass/Vol] 2.00 mg/dL High 0.20-1.00 [facility] Comment on above: For patients on eltr ombopag therapy, use of Dimension [place] TBIL is not recommended. Blood urea nitrogen (BUN)/cr eatinine ratioOrdered By: Jose Hay on 03-23-2024 Urea nitrogen/Creatinine [Mass ratio] 18.0 mg/mg 10-20 [facility] Carbon dioxide measurementOr dered By: Jose Hay on 03-23-2024 CO2 [Moles/Vol] 28.0 mmol/L 21.0-32.0 [facility] Chloride measurementOrdered By: Jose Hay on 03-23-2024 Chloride [Moles/Vol] 104 mmol/L 98-107 [facility] Comprehensive Metabolic Prof ilon 03-23-2024 Albumin [Mass/Vol] 3.7 g/dL Normal 3.2-5.0 [facility] Comment on above: Order Comment: DR REMY ORDERED BMP AND MAGNESIUM.DR HAY ORDERED LIPID CMP TSH. RANGLE Performed By: #### L 500.4050, L501.9520, L501.5200, L500.4100 ####[facility] [address] [place], [address] Albumin/Globulin [Mass ratio] 1.1 {ratio} Normal 0.9-2.4 [facility] Comment on above: Order Comment: DR REMY ORDERED BMP AND MAGNESIUM.DR HAY ORDERED LIPID CMP TSH. RANGLE Performed By: #### L 500.4050, L501.9520, L501.5200, L500.4100 ####[facility] [address] [place], [address] ALK P 92 U/L Normal 45-117 [facility] Comment on above: Order Comment: DR REMY ORDERED BMP AND MAGNESIUM.DR HAY ORDERED LIPID CMP TSH. RANGLE Performed By: #### L 500.4050, L501.9520, L501.5200, L500.4100 ####[facility] [address] [place], [address] ALT [Catalytic activity/Vol] 52 U/L Normal 16-61 [facility] Comment on above: Order Comment: DR REMY ORDERED BMP AND MAGNESIUM.DR HAY ORDERED LIPID CMP TSH. RANGLE Performed By: #### L 500.4050, L501.9520, L501.5200, L500.4100 ####[facility] [address] [place], [address] AST [Catalytic activity/Vol] 28 U/L Normal 15-37 [facility] Comment on above: Order Comment: DR REMY ORDERED BMP AND MAGNESIUM.DR HAY ORDERED LIPID CMP TSH. RANGLE Performed By: #### L 500.4050, L501.9520, L501.5200, L500.4100 ####[facility] [address] [place], [address] Bilirubin [Mass/Vol] 2.00 mg/dL High 0.20-1.00 [facility] Comment on above: Order Comment: DR REMY ORDERED BMP AND MAGNESIUM.DR HYA ORDERED LIPID CMP TSH. RANGLE Result Comment: For patients on eltrombopag therapy, use of Dimension [place] TBIL is not recommended. Performed By: #### L 500.4050, L501.9520, L501.5200, L500.4100 ####[facility] [address] [place], [address] BUN/CRE 18.0 RATIO Normal 10-20 [facility] Comment on above: Order Comment: DR REMY ORDERED BMP AND MAGNESIUM.DR HAY ORDERED LIPID CMP TSH. RANGLE Performed By: #### L 500.4050, L501.9520, L501.5200, L500.4100 ####[facility] [address] [place], [address] CA,Total 8.8 mg/dL Normal 8.5-10.1 [facility] Comment on above: Order Comment: DR REMY ORDERED BMP AND MAGNESIUM.DR HAY ORDERED LIPID CMP TSH. RANGLE Performed By: #### L 500.4050, L501.9520, L501.5200, L500.4100 ####[facility] [address] [place], [address] Chloride [Moles/Vol] 104 mmol/L Normal 98-107 [facility] Comment on above: Order Comment: DR REMY ORDERED BMP AND MAGNESIUM.DR HAY ORDERED LIPID CMP TSH. RANGLE Performed By: #### L 500.4050, L501.9520, L501.5200, L500.4100 ####[facility] [address] [place], [address] CO2 [Moles/Vol] 28.0 mmol/L Normal 21.0-32.0 [facility] Comment on above: Order Comment: DR REMY ORDERED BMP AND MAGNESIUM.DR HAY ORDERED LIPID CMP TSH. RANGLE Performed By: #### L 500.4050, L501.9520, L501.5200, L500.4100 ####[facility] [address] [place], [address] Creatinine [Mass/Vol] 1.67 mg/dL High 0.70-1.[address] [facility] Comment on above: Order Comment: DR REMY ORDERED BMP AND MAGNESIUM.DR HAY ORDERED LIPID CMP TSH. RANGLE Result Comment: The validity of the calculated GFR GFRAA in patients over70 years has not been determined. Clinical correlation isessential. Performed By: #### L 500.4050, L501.9520, L501.5200, L500.4100 ####[facility] [address] [place], [address] EST GFR - AA 51 mL/min Low >60 [facility] Comment on above: Order Comment: DR REMY ORDERED BMP AND MAGNESIUM.DR HAY ORDERED LIPID CMP TSH. RANGLE Result Comment: Afri can Iraqi GFR Calc Performed By: #### L 500.4050, L501.9520, L501.5200, L500.4100 ####[facility] [address] [place], [address] GAP 6 Normal 5-15 [facility] Comment on above: Order Comment: DR REMY ORDERED BMP AND MAGNESIUM.DR HAY ORDERED LIPID CMP TSH. RANGLE Performed By: #### L 500.4050, L501.9520, L501.5200, L500.4100 ####[facility] [address] [place], [address] GFR/1.73 sq M.predicted among non-blacks MDRD (S/P/Bld) [Vol rate/Area] 42 mL/min/{1.73_m2} Low >60 [facility] Comment on above: Order Comment: DR REMY ORDERED BMP AND MAGNESIUM.DR HAY ORDERED LIPID CMP TSH. RANGLE Result Comment: Non- GFR Calc Performed By: #### L 500.4050, L501.9520, L501.5200, L500.4100 ####[facility] [address] [place], [address] Globulin (S) [Mass/Vol] 3.3 g/dL Normal 2.2-4.2 [facility] Comment on above: Order Comment: DR REMY ORDERED BMP AND MAGNESIUM.DR HAY ORDERED LIPID CMP TSH. RANGLE Performed By: #### L 500.4050, L501.9520, L501.5200, L500.4100 ####[facility] [address] [place], [address] Glucose [Mass/Vol] 146 mg/dL High 74-106 [facility] Comment on above: Order Comment: DR REMY ORDERED BMP AND MAGNESIUM.DR HAY ORDERED LIPID CMP TSH. RANGLE Result Comment: Fast ing Glucose result greater than or equal to 126 mg/dLsuggests DIABETES MELLITUS per A.D.A. criteria. Performed By: #### L 500.4050, L501.9520, L501.5200, L500.4100 ####[facility] [address] [place], [address] Potassium [Moles/Vol] 4.4 mmol/L Normal 3.5-5.[address] [facility] Comment on above: Order Comment: DR REMY ORDERED BMP AND MAGNESIUM.DR HAY ORDERED LIPID CMP TSH. RANGLE Performed By: #### L 500.4050, L501.9520, L501.5200, L500.4100 ####[facility] [address] [place], [address] Sodium [Moles/Vol] 138 mmol/L Normal 136-145 [facility] Comment on above: Order Comment: DR REMY ORDERED BMP AND MAGNESIUM.DR HAY ORDERED LIPID CMP TSH. RANGLE Performed By: #### L 500.4050, L501.9520, L501.5200, L500.4100 ####[facility] [address] [place], [address] T PROT 7.0 g/dL Normal 6.4-8.2 [facility] Comment on above: Order Comment: DR REMY ORDERED BMP AND MAGNESIUM.DR HAY ORDERED LIPID CMP TSH. RANGLE Performed By: #### L 500.4050, L501.9520, L501.5200, L500.4100 ####[facility] [address] [place], [address] Urea nitrogen [Mass/Vol] 30 mg/dL High 7-18 [facility] Comment on above: Order Comment: DR REMY ORDERED BMP AND MAGNESIUM.DR HAY ORDERED LIPID CMP TSH. RANGLE Performed By: #### L 500.4050, L501.9520, L501.5200, L500.4100 ####[facility] [address] [place], [place], [id number] Estimated glomerular filtrat ion rate (GFR) AmericanOrdered By: Jose Hay on 03-23-2024 Estimated GFR (MDRD) Amer 51 mL/min Low >60 [facility] Comment on above: GFR Calc Glomerular filtration rate ( GFR) estimationOrdered By: Jose Hay on 03-23-2024 Estimated GFR (MDRD) Non-Af Amer 42 mL/min Low >60 [facility] Comment on above: Non- GFR Calc Glucose measurementOrdered B y: Jose Hay on 03-23-2024 Glucose [Mass/Vol] 146 mg/dL High 74-106 [facility] Comment on above: Fasting Glucose resu lt greater than or equal to 126 mg/dL suggests DIABETES MELLITUS per A.D.A. criteria. High density lipoprotein (HD L) measurementOrdered By: Jose Hay on 03-23-2024 Cholesterol in HDL [Mass/Vol] 52 mg/dL >40 [facility] Comment on above: The drugs N-Acetylcy steine and Metamizole may falsely depress this assay. Reference Range HDL <40 mg/dL Low HDL Cholesterol HDL >or= 60 mg/dL High HDL Cholesterol Laboratory - Chemistry and C hemistry - challengeOrdered By: Jose Hay on 03-23-2024 AST [Catalytic activity/Vol] 28 U/L 15-37 [facility] Lipid Profileon 03-23-2024 Cholesterol [Mass/Vol] 158 mg/dL Normal 200 [facility] Comment on above: Order Comment: DR REMY ORDERED BMP AND MAGNESIUM.DR HAY ORDERED LIPID CMP TSH. RANGLE Result Comment: <200 mg/dL Desirable 200-240 mg/dL Borderline >240 mg/dL High Risk Performed By: #### L 500.4050, L501.9541, L501.5200, L500.4100 ####[facility] [address] [place], [place], [id number] Cholesterol in HDL [Mass/Vol] 52 mg/dL Normal [facility] Comment on above: Order Comment: DR REMY ORDERED BMP AND MAGNESIUM.DR HAY ORDERED LIPID CMP TSH. RANGLE Result Comment: The drugs N-Acetylcysteine and Metamizole may falselydepress this assay. Reference Range HDL <40 mg/dL Low HDL Cholesterol HDL >or= 60 mg/dL High HDL Cholesterol Performed By: #### L 500.4050, L501.9520, L501.5200, L500.4100 ####[facility] [address] [place], [address] Cholesterol in LDL [Mass/Vol] 61 mg/dL Normal 0-130 [facility] Comment on above: Order Comment: DR REMY ORDERED BMP AND MAGNESIUM.DR HAY ORDERED LIPID CMP TSH. RANGLE Performed By: #### L 500.4050, L501.9520, L501.5200, L500.4100 ####[facility] [address] [place], [address] Cholesterol in VLDL [Mass/Vol] 45 mg/dL High 5-40 [facility] Comment on above: Order Comment: DR REMY ORDERED BMP AND MAGNESIUM.DR HAY ORDERED LIPID CMP TSH. RANGLE Performed By: #### L 500.4050, L501.9520, L501.5200, L500.4100 ####[facility] [address] [place], [address] Triglyceride [Mass/Vol] 225 mg/dL High [facility] Comment on above: Order Comment: DR REMY ORDERED BMP AND MAGNESIUM.DR HAY ORDERED LIPID CMP TSH. RANGLE Result Comment: The drugs N-Acetylcysteine and Metamizole may falselydepress this assay.Serum Triglycerides Reference Interval Normal <150 mg/dL Borderline high 150 - 199 mg/dL High 200 - 499 mg/dL Very High > or = 500 mg/dL Performed By: #### L 500.4050, L501.9520, L501.5200, L500.4100 ####[facility] [address] [place], [address] Low density lipoprotein (LDL ) cholesterol measurementOrdered By: Jose Hay on 03-23-2024 Cholesterol in LDL [Mass/Vol] 61 mg/dL 0-130 [facility] Magnesiumon 03-23-2024 Magnesium [Mass/Vol] 2.1 mg/dL Normal 1.6-2.6 [facility] Comment on above: Order Comment: DR REMY ORDERED BMP AND MAGNESIUM.DR HAY ORDERED LIPID CMP TSH. RANGLE Performed By: #### L 500.4050, L501.9520, L501.5200, L500.4100 ####[facility] [address] [place], [address] Magnesium measurementOrdered By: Jose Hay on 03-23-2024 Magnesium [Mass/Vol] 2.1 mg/dL 1.6-2.6 [facility] Potassium measurementOrdered By: Jose Hay on 03-23-2024 Potassium [Moles/Vol] 4.4 mmol/L 3.5-5.[address] [facility] Serum anion gap measurementO rdered By: Jose Hay on 03-23-2024 Anion gap [Moles/Vol] 6 mmol/L 5-[address] [facility] Serum globulin measurementOr dered By: Jose Hay on 03-23-2024 Globulin (S) [Mass/Vol] 3.3 g/dL 2.2-4.2 [facility] Serum or plasma alanine guerrero otransferase (ALT) measurementOrdered By: Jose Hay on 03-23-2024 ALT [Catalytic activity/Vol] 52 U/L 16-61 [facility] Serum or plasma albumin francine urement (mass/volume)Ordered By: Jose Hay on 03-23-2024 Albumin [Mass/Vol] 3.7 g/dL 3.2-5.0 [facility] Serum or plasma alkaline bell sphatase measurementOrdered By: Jose Hay on 03-23-2024 ALP [Catalytic activity/Vol] 92 U/L 45-117 [facility] Serum or plasma calcium francine urement (mass/volume)Ordered By: Jose Hay on 03-23-2024 Calcium [Mass/Vol] 8.8 mg/dL 8.5-10.1 [facility] Serum or plasma cholesterol measurement (mass/volume)Ordered By: Jose Hay on 03-23-2024 Cholesterol [Mass/Vol] 158 mg/dL <200 [facility] Comment on above: <200 mg/dL Desirable 200-240 mg/dL Borderline >240 mg/dL High Risk Serum or plasma creatinine m easurement (mass/volume)Ordered By: Jose Hay on 03-23-2024 Creatinine [Mass/Vol] 1.67 mg/dL High 0.70-1.[address] [facility] Comment on above: The validity of the calculated GFR & GFRAA in patients over 70 years has not been determined. Clinical correlation is essential. Serum or plasma urea nitroge n measurement (mass/volume)Ordered By: Jose Hay on 03-23-2024 Urea nitrogen [Mass/Vol] 30 mg/dL High 7-18 [facility] Sodium levelOrdered By: Ernst Hay on 03-23-2024 Sodium [Moles/Vol] 138 mmol/L 136-145 [facility] TSH QnOrdered By: Jose rodriguez on 03-23-2024 Thyroid Stimulating Hormone (TSH) 5.340 uIU/mL High 0.358-3.[address] [facility] Thyroid Stim Hormone (TSH)on 03-23-2024 TSH 5.340 uIU/mL High 0.358-3.[address] [facility] Comment on above: Order Comment: DR REMY ORDERED BMP AND MAGNESIUM.DR HAY ORDERED LIPID CMP TSH. RANGLE Performed By: #### L 500.4050, L501.9520, L501.5200, L500.4100 ####[facility] [address] [place], [place], [id number] Total proteinOrdered By: Emmanuel Hay on 03-23-2024 Protein [Mass/Vol] 7.0 g/dL 6.4-8.2 [facility] Triglycerides measurementOrd ered By: Jose Hay on 03-23-2024 Triglyceride [Mass/Vol] 225 mg/dL High <199 [facility] Comment on above: The drugs N-Acetylcy steine and Metamizole may falsely depress this assay.Serum Triglycerides Reference Interval Normal <150 mg/dL Borderline high 150 - 199 mg/dL High 200 - 499 mg/dL Very High > or = 500 mg/dL Very low density lipoprotein (VLDL) cholesterol measurementOrdered By: Jose Hay on 03-23-2024 VLDL Cholesterol 45 mg/dL High 5-40 [facility] Cardiology Visit Reporton Cardiology Visit Report Normal [facility] Basophil percentageOrdered B y: Marycarmen Rodriguez on 05-07-2023 Chloride [Moles/Vol] 103 mmol/L 98-107 [facility] Glucose [Mass/Vol] 172 mg/dL 74-106 [facility] Comment on above: Fasting Glucose resu lt greater than or equal to 126 mg/dL suggests DIABETES MELLITUS per A.D.A. criteria. Potassium [Moles/Vol] 3.7 mmol/L 3.5-5.[address] [facility] Sodium [Moles/Vol] 138 mmol/L 136-145 [facility] Laboratory - Chemistry and C hemistry - challengeOrdered By: Marycarmen Rodriguez on 05-07-2023 CO2 [Moles/Vol] 27.0 mmol/L 21.0-32.0 [facility] Urea nitrogen/Creatinine [Mass ratio] 13.9 mg/mg 10-20 [facility] No Panel InformationOrdered By: Marycarmen Rodriguez on 05-07-2023 Estimated GFR (MDRD) Amer 74 mL/min >60 [facility] Comment on above: GFR Calc Estimated GFR (MDRD) Non-Af Amer 61 mL/min >60 [facility] Comment on above: Non- GFR Calc Serum or plasma calcium francine urement (mass/volume)Ordered By: Marycarmen Rodriguez on 05-07-2023 Calcium [Mass/Vol] 8.6 mg/dL 8.5-10.1 [facility] Serum or plasma creatinine m easurement (mass/volume)Ordered By: Marycarmen Rodriguez on 05-07-2023 Creatinine [Mass/Vol] 1.22 mg/dL 0.70-1.[address] [facility] Comment on above: The validity of the calculated GFR & GFRAA in patients over 70 years has not been determined. Clinical correlation is essential. Serum or plasma urea nitroge n measurement (mass/volume)Ordered By: Marycarmen Rodriguez on 05-07-2023 Urea nitrogen [Mass/Vol] 17 mg/dL 7-18 [facility] Thin prep Papanicolaou smear with manual screeningOrdered By: Marycarmen Rodriguez on 05-07-2023 Thin prep Papanicolaou smear with manual screening 8 5-15 [facility] Basophil percentageOrdered B y: Jose Hay on 12-15-2022 Chloride [Moles/Vol] 110 mmol/L 98-107 [facility] Glucose [Mass/Vol] 121 mg/dL 74-106 [facility] Comment on above: Fasting Glucose resu lt from 100 to 125 mg/dL suggests IMPAIRED HOMEOSTASIS per A.D.A. criteria. Potassium [Moles/Vol] 4.0 mmol/L 3.5-5.[address] [facility] Sodium [Moles/Vol] 139 mmol/L 136-145 [facility] WBC (Bld) [#/Vol] 7.3 10*3/uL 4.4-11.0 [facility] Blood erythrocytes count (nu mber/volume)Ordered By: Jose Hay on 12-15-2022 RBC (Bld) [#/Vol] 5.18 10*6/uL 4.6-6.2 [facility] Blood hemoglobin measurement (mass/volume)Ordered By: Jose Hay on 12-15-2022 Hemoglobin (Bld) [Mass/Vol] 15.2 g/dL 13.0-16.5 [facility] Blood platelet mean volumeOr dered By: Jose Hay on 12-15-2022 Platelet mean volume (Bld) [Entitic vol] 12.2 fL 6.2-12.0 [facility] Determination of erythrocyte mean corpuscular volume (MCV)Ordered By: Jose Hay on 12-15-2022 MCV (RBC) [Entitic vol] 90.2 fL 80-94 [facility] Hematocrit Auto (Bld) [Volum e fraction]Ordered By: Jose Hay on 12-15-2022 Hematocrit (Bld) [Volume fraction] 46.7 % 40-54 [facility] Laboratory - Chemistry and C hemistry - challengeOrdered By: Jose Hay on 12-15-2022 CO2 [Moles/Vol] 23.0 mmol/L 21.0-32.0 [facility] Natriuretic peptide B (Bld) [Mass/Vol] 38.1 pg/mL 0-100 [facility] Urea nitrogen/Creatinine [Mass ratio] 13.5 mg/mg 10-20 [facility] Laboratory - Hematology and Cell countsOrdered By: Jose Hay on 12-15-2022 Erythrocyte distribution width (RBC) [Entitic vol] 47.5 fL 35.1-43.9 [facility] Erythrocyte distribution width (RBC) [Ratio] 14.4 % 11.6-14.6 [facility] MCH (RBC) [Entitic mass] 29.3 pg 27.0-32.0 [facility] MCHC Auto (RBC) [Mass/Vol]Or dered By: Jose Hay on 12-15-2022 MCHC (RBC) [Mass/Vol] 32.5 g/dL 32-[address] [facility] No Panel InformationOrdered By: Jose Hay on 12-15-2022 Estimated GFR (MDRD) Amer 83 mL/min >60 [facility] Comment on above: GFR Calc Estimated GFR (MDRD) Non-Af Amer 68 mL/min >60 [facility] Comment on above: Non- GFR Calc Platelets bldOrdered By: Emmanuel Hay on 12-15-2022 Platelets (Bld) [#/Vol] 143 10*3/uL 150-450 [facility] Serum or plasma calcium francine urement (mass/volume)Ordered By: Jose Hay on 12-15-2022 Calcium [Mass/Vol] 8.8 mg/dL 8.5-10.1 [facility] Serum or plasma creatinine m easurement (mass/volume)Ordered By: Jose Hay on 12-15-2022 Creatinine [Mass/Vol] 1.11 mg/dL 0.70-1.[address] [facility] Comment on above: The validity of the calculated GFR & GFRAA in patients over 70 years has not been determined. Clinical correlation is essential. Serum or plasma urea nitroge n measurement (mass/volume)Ordered By: Jose Hay on 12-15-2022 Urea nitrogen [Mass/Vol] 15 mg/dL 7-18 [facility] Thin prep Papanicolaou smear with manual screeningOrdered By: Jose Hay on 12-15-2022 Thin prep Papanicolaou smear with manual screening 6 5-15 [facility] Absolute lymphocyte countOrd ered By: Luz Elena Mckeon on 10-13-2022 Lymphocytes Auto (Unsp spec) [#/Vol] 1.21 10*3/uL 0.83-4.51 [facility] Basophil percentageOrdered B y: Luz Elena Mckeon on 10-13-2022 Basophils/100 WBC (Bld) 0.5 % 0-1 [facility] Chloride [Moles/Vol] 106 mmol/L 98-107 [facility] Eosinophils/100 WBC (Bld) 1.4 % 0-5 [facility] Glucose [Mass/Vol] 277 mg/dL 74-106 [facility] Comment on above: Glucose result great er than or equal to 200 mg/dLsuggests DIABETES MELLITUS per A.D.A. criteria. Neutrophils (Bld) [#/Vol] 4.0 10*3/uL 2.0-7.7 [facility] Neutrophils/100 WBC (Bld) 68.5 % 47-70 [facility] Potassium [Moles/Vol] 4.1 mmol/L 3.5-5.[address] [facility] Sodium [Moles/Vol] 139 mmol/L 136-145 [facility] WBC (Bld) [#/Vol] 5.8 10*3/uL 4.4-11.0 [facility] Blood erythrocytes count (nu mber/volume)Ordered By: Luz Elena Mckeon on 10-13-2022 RBC (Bld) [#/Vol] 4.66 10*6/uL 4.6-6.2 [facility] Blood hemoglobin measurement (mass/volume)Ordered By: Luz Elena Mckeon on 10-13-2022 Hemoglobin (Bld) [Mass/Vol] 13.6 g/dL 13.0-16.5 [facility] Blood lymphocytes/100 leukoc ytesOrdered By: Luz Elena Mckeon on 10-13-2022 Lymphocytes/100 WBC (Bld) 20.7 % 19-41 [facility] Blood monocytes/100 leukocyt esOrdered By: Luz Elena Mckeon on 10-13-2022 Monocytes/100 WBC (Bld) 8.6 % 0-10 [facility] Blood platelet mean volumeOr dered By: Luz Elena Mckeon on 10-13-2022 Platelet mean volume (Bld) [Entitic vol] 12.6 fL 6.2-12.0 [facility] Determination of erythrocyte mean corpuscular volume (MCV)Ordered By: Luz Elena Mckeon on 10-13-2022 MCV (RBC) [Entitic vol] 89.5 fL 80-94 [facility] Hematocrit Auto (Bld) [Volum e fraction]Ordered By: Luz Elena Mckeon on 10-13-2022 Hematocrit (Bld) [Volume fraction] 41.7 % 40-54 [facility] Laboratory - Chemistry and C hemistry - challengeOrdered By: Luz Elena Mckeon on 10-13-2022 CO2 [Moles/Vol] 27.0 mmol/L 21.0-32.0 [facility] Free T4 [Mass/Vol] 0.77 ng/dL 0.76-1.46 [facility] Magnesium [Mass/Vol] 2.1 mg/dL 1.6-2.6 [facility] Natriuretic peptide B (Bld) [Mass/Vol] 47.2 pg/mL 0-100 [facility] Urea nitrogen/Creatinine [Mass ratio] 17.2 mg/mg 10-20 [facility] Laboratory - Hematology and Cell countsOrdered By: Luz Elena Mckeon on 10-13-2022 Erythrocyte distribution width (RBC) [Entitic vol] 46.1 fL 35.1-43.9 [facility] Erythrocyte distribution width (RBC) [Ratio] 14.1 % 11.6-14.6 [facility] Immature granulocytes/100 WBC (Bld) 0.300 % 0.0-0.9 [facility] Comment on above: IG% - Immature Granu locytes (promyelocytes, myelocytes and metamyelocytes) > 1% indicates that a LEFT SHIFT is Present. MCH (RBC) [Entitic mass] 29.2 pg 27.0-32.0 [facility] Nucleated RBC/100 WBC (Bld) [Ratio] 0 % 0-5 [facility] MCHC Auto (RBC) [Mass/Vol]Or dered By: Luz Elena Mckeon on 10-13-2022 MCHC (RBC) [Mass/Vol] 32.6 g/dL 32-[address] [facility] No Panel InformationOrdered By: Luz Elena Mckeon on 10-13-2022 Estimated GFR (MDRD) Amer 61 mL/min >60 [facility] Comment on above: GFR Calc Estimated GFR (MDRD) Non-Af Amer 50 mL/min >60 [facility] Comment on above: Non- GFR Calc Free Triiodothyronine (T3) pg/dL 2.7 pg/mL 2.18-3.98 [facility] Thyroid Stimulating Hormone (TSH) 4.12 uIU/mL 0.358-3.74 [facility] Platelets bldOrdered By: Loco Mckeon on 10-13-2022 Platelets (Bld) [#/Vol] 126 10*3/uL 150-450 [facility] Serum or plasma calcium francine urement (mass/volume)Ordered By: Luz Elena Mckeon on 10-13-2022 Calcium [Mass/Vol] 8.5 mg/dL 8.5-10.1 [facility] Serum or plasma creatinine m easurement (mass/volume)Ordered By: Luz Elena Mckeon on 10-13-2022 Creatinine [Mass/Vol] 1.45 mg/dL 0.70-1.[address] [facility] Comment on above: The validity of the calculated GFR & GFRAA in patients over 70 years has not been determined. Clinical correlation is essential. Serum or plasma urea nitroge n measurement (mass/volume)Ordered By: Luz Elena Mckeon on 10-13-2022 Urea nitrogen [Mass/Vol] 25 mg/dL 7-18 [facility] Thin prep Papanicolaou smear with manual screeningOrdered By: Luz Elena Mckeon on 10-13-2022 Thin prep Papanicolaou smear with manual screening 6 5-15 [facility] COVID-19 virus antigen assay Ordered By: Shaan Santos on 09-21-2022 SARS-CoV-2 (COVID-19) Ag IA.rapid Ql (Resp) [facility] COVID-19 virus antigen assay Ordered By: Dr. Santos on 09-21-2022 SARS-CoV-2 (COVID-19) Ag IA.rapid Ql (Resp) [facility] Glucose Glucometer (BldC) [M ass/Vol]Ordered By: Dr. Santos on 09-21-2022 Glucose [Mass/Vol] 193 mg/dL 74-106 [facility] Comment on above: MANAGEMENT OF PATIEN T CARE PER NURSING PROTOCOL Absolute lymphocyte countOrd ered By: Dr. Leo on 09-18-2022 Lymphocytes Auto (Unsp spec) [#/Vol] 1.83 10*3/uL 0.83-4.51 [facility] Basophil percentageOrdered B y: Dr. Leo on 09-18-2022 Basophils/100 WBC (Bld) 0.3 % 0-1 [facility] Bilirubin [Mass/Vol] 1.20 mg/dL 0.20-1.00 [facility] Comment on above: For patients on eltr ombopag therapy, use of Dimension [place] TBIL is not recommended. Chloride [Moles/Vol] 108 mmol/L 98-107 [facility] Cholesterol [Mass/Vol] 114 mg/dL <200 [facility] Comment on above: <200 mg/dL Desirable 200-240 mg/dL Borderline >240 mg/dL High Risk Eosinophils/100 WBC (Bld) 2.0 % 0-5 [facility] Glucose [Mass/Vol] 87 mg/dL 74-106 [facility] Neutrophils (Bld) [#/Vol] 4.3 10*3/uL 2.0-7.7 [facility] Neutrophils/100 WBC (Bld) 60.9 % 47-70 [facility] Potassium [Moles/Vol] 3.5 mmol/L 3.5-5.[address] [facility] Protein [Mass/Vol] 5.9 g/dL 6.4-8.2 [facility] Sodium [Moles/Vol] 142 mmol/L 136-145 [facility] Triglyceride [Mass/Vol] 174 mg/dL <199 [facility] Comment on above: The drugs N-Acetylcy steine and Metamizole may falsely depress this assay.Serum Triglycerides Reference Interval Normal <150 mg/dL Borderline high 150 - 199 mg/dL High 200 - 499 mg/dL Very High > or = 500 mg/dL WBC (Bld) [#/Vol] 7.0 10*3/uL 4.4-11.0 [facility] Blood erythrocytes count (nu mber/volume)Ordered By: Dr. Leo on 09-18-2022 RBC (Bld) [#/Vol] 4.64 10*6/uL 4.6-6.2 [facility] Blood hemoglobin measurement (mass/volume)Ordered By: Dr. Leo on 09-18-2022 Hemoglobin (Bld) [Mass/Vol] 13.2 g/dL 13.0-16.5 [facility] Blood lymphocytes/100 leukoc ytesOrdered By: Dr. Leo on 09-18-2022 Lymphocytes/100 WBC (Bld) 26.1 % 19-41 [facility] Blood monocytes/100 leukocyt esOrdered By: Dr. Leo on 09-18-2022 Monocytes/100 WBC (Bld) 10.4 % 0-10 [facility] Blood platelet mean volumeOr dered By: Dr. Leo on 09-18-2022 Platelet mean volume (Bld) [Entitic vol] 12.3 fL 6.2-12.0 [facility] Determination of erythrocyte mean corpuscular volume (MCV)Ordered By: Dr. Leo on 09-18-2022 MCV (RBC) [Entitic vol] 90.1 fL 80-94 [facility] Hematocrit Auto (Bld) [Volum e fraction]Ordered By: Dr. Leo on 09-18-2022 Hematocrit (Bld) [Volume fraction] 41.8 % 40-54 [facility] Laboratory - Chemistry and C hemistry - challengeOrdered By: Dr. Leo on 09-18-2022 ALP [Catalytic activity/Vol] 113 U/L 45-117 [facility] ALT [Catalytic activity/Vol] 31 U/L 16-61 [facility] CO2 [Moles/Vol] 26.0 mmol/L 21.0-32.0 [facility] Globulin (S) [Mass/Vol] 3.0 g/dL 2.2-4.2 [facility] Urea nitrogen/Creatinine [Mass ratio] 13.4 mg/mg 10-20 [facility] Laboratory - Hematology and Cell countsOrdered By: Dr. Leo on 09-18-2022 Erythrocyte distribution width (RBC) [Entitic vol] 46.9 fL 35.1-43.9 [facility] Erythrocyte distribution width (RBC) [Ratio] 14.4 % 11.6-14.6 [facility] Immature granulocytes/100 WBC (Bld) 0.300 % 0.0-0.9 [facility] Comment on above: IG% - Immature Granu locytes (promyelocytes, myelocytes and metamyelocytes) > 1% indicates that a LEFT SHIFT is Present. MCH (RBC) [Entitic mass] 28.4 pg 27.0-32.0 [facility] Nucleated RBC/100 WBC (Bld) [Ratio] 0 % 0-5 [facility] MCHC Auto (RBC) [Mass/Vol]Or dered By: Dr. Leo on 09-18-2022 MCHC (RBC) [Mass/Vol] 31.6 g/dL 32-[address] [facility] No Panel InformationOrdered By: Dr. Leo on 09-18-2022 Estimated Creatinine Clearance Calc 47.13 ml/min [facility] Estimated GFR (MDRD) Amer 71 mL/min >60 [facility] Comment on above: GFR Calc Estimated GFR (MDRD) Non-Af Amer 58 mL/min >60 [facility] Comment on above: Non- GFR Calc Thyroid Stimulating Hormone (TSH) 3.64 uIU/mL 0.358-3.74 [facility] Troponin I High Sensitivity 8 pg/mL 3.0-78.0 [facility] Comment on above: Please Note: New [place] t Units and Gender Specific Reference Ranges. For more information see Policy Stat Procedure [place] High Sensitivity Troponin (TNIH) and attachments. Platelets bldOrdered By: Dr. Leo on 09-18-2022 Platelets (Bld) [#/Vol] 131 10*3/uL 150-450 [facility] Serum or plasma albumin francine urement (mass/volume)Ordered By: Dr. Leo on 09-18-2022 Albumin [Mass/Vol] 2.9 g/dL 3.2-5.0 [facility] Serum or plasma albumin/glob ulin mass ratioOrdered By: Dr. Leo on 09-18-2022 Albumin/Globulin [Mass ratio] 1.0 {ratio} 0.9-2.4 [facility] Serum or plasma calcium francine urement (mass/volume)Ordered By: Dr. Leo on 09-18-2022 Calcium [Mass/Vol] 7.6 mg/dL 8.5-10.1 [facility] Serum or plasma cholesterol in HDL measurement (mass/volume)Ordered By: Dr. Leo on 09-18-2022 Cholesterol in HDL [Mass/Vol] 36 mg/dL >40 [facility] Comment on above: The drugs N-Acetylcy steine and Metamizole may falsely depress this assay. Reference Range HDL <40 mg/dL Low HDL Cholesterol HDL >or= 60 mg/dL High HDL Cholesterol Serum or plasma cholesterol in VLDL measurement (mass/volume)Ordered By: Dr. Leo on 09-18-2022 Cholesterol in VLDL [Mass/Vol] 35 mg/dL 5-40 [facility] Serum or plasma creatinine m easurement (mass/volume)Ordered By: Dr. Leo on 09-18-2022 Creatinine [Mass/Vol] 1.27 mg/dL 0.70-1.[address] [facility] Comment on above: The validity of the calculated GFR & GFRAA in patients over 70 years has not been determined. Clinical correlation is essential. Serum or plasma low density lipoprotein (LDL) cholesterol measurement (mass/volume)Ordered By: Dr. Leo on 09-18-2022 Cholesterol in LDL [Mass/Vol] 43 mg/dL 0-130 [facility] Serum or plasma urea nitroge n measurement (mass/volume)Ordered By: Dr. Leo on 09-18-2022 Urea nitrogen [Mass/Vol] 17 mg/dL 7-18 [facility] Thin prep Papanicolaou smear with manual screeningOrdered By: Dr. Leo on 09-18-2022 Thin prep Papanicolaou smear with manual screening 21 U/L 15-37 [facility] Thin prep Papanicolaou smear with manual screening 8 5-15 [facility] Whole blood hemoglobin A1c/t otal hemoglobin ratio (mass fraction)Ordered By: Dr. Leo on 09-18-2022 HbA1c (Bld) [Mass fraction] 7.7 % 3.8-5.6 [facility] Comment on above: Normal < 5.7 % Predi abetic 5.7 - 6.4 % Diabetic >or= 6.5 % Please note range changes. INR in Blood by Coagulation assayOrdered By: Dr. Hall on 09-17-2022 INR Coag (Bld) [Relative time] 0.9 {INR} [facility] Laboratory - Chemistry and C hemistry - challengeOrdered By: Dr. Leo on 09-17-2022 Magnesium [Mass/Vol] 2.3 mg/dL 1.6-2.6 [facility] Laboratory - CoagulationOrde red By: Dr. Hall on 09-17-2022 aPTT Coag (Bld) [Time] 32.1 s 24.1-36.2 [facility] PT Coag (PPP) [Time] 12.3 s 11.7-14.9 [facility] Basophil percentageOrdered B y: Dr. Hay on 09-01-2022 Bilirubin [Mass/Vol] 0.70 mg/dL 0.20-1.00 [facility] Comment on above: For patients on eltr ombopag therapy, use of Dimension [place] TBIL is not recommended. Chloride [Moles/Vol] 112 mmol/L 98-107 [facility] Glucose [Mass/Vol] 151 mg/dL 74-106 [facility] Comment on above: Fasting Glucose resu lt greater than or equal to 126 mg/dL suggests DIABETES MELLITUS per A.D.A. criteria. Potassium [Moles/Vol] 3.9 mmol/L 3.5-5.[address] [facility] Protein [Mass/Vol] 5.7 g/dL 6.4-8.2 [facility] Sodium [Moles/Vol] 142 mmol/L 136-145 [facility] WBC (Bld) [#/Vol] 4.7 10*3/uL 4.4-11.0 [facility] Blood erythrocytes count (nu mber/volume)Ordered By: Dr. Hay on 09-01-2022 RBC (Bld) [#/Vol] 4.60 10*6/uL 4.6-6.2 [facility] Blood hemoglobin measurement (mass/volume)Ordered By: Dr. Hay on 09-01-2022 Hemoglobin (Bld) [Mass/Vol] 13.0 g/dL 13.0-16.5 [facility] Blood platelet mean volumeOr dered By: Dr. Hay on 09-01-2022 Platelet mean volume (Bld) [Entitic vol] 12.8 fL 6.2-12.0 [facility] Determination of erythrocyte mean corpuscular volume (MCV)Ordered By: Dr. Hay on 09-01-2022 MCV (RBC) [Entitic vol] 89.1 fL 80-94 [facility] Hematocrit Auto (Bld) [Volum e fraction]Ordered By: Dr. Hay on 09-01-2022 Hematocrit (Bld) [Volume fraction] 41.0 % 40-54 [facility] Laboratory - Chemistry and C hemistry - challengeOrdered By: Dr. Hay on 09-01-2022 ALP [Catalytic activity/Vol] 149 U/L 45-117 [facility] ALT [Catalytic activity/Vol] 35 U/L 16-61 [facility] CO2 [Moles/Vol] 27.0 mmol/L 21.0-32.0 [facility] Globulin (S) [Mass/Vol] 2.9 g/dL 2.2-4.2 [facility] Urea nitrogen/Creatinine [Mass ratio] 15.8 mg/mg 10-20 [facility] Laboratory - Hematology and Cell countsOrdered By: Dr. Hay on 09-01-2022 Erythrocyte distribution width (RBC) [Entitic vol] 44.1 fL 35.1-43.9 [facility] Erythrocyte distribution width (RBC) [Ratio] 13.5 % 11.6-14.6 [facility] MCH (RBC) [Entitic mass] 28.3 pg 27.0-32.0 [facility] MCHC Auto (RBC) [Mass/Vol]Or dered By: Dr. Hay on 09-01-2022 MCHC (RBC) [Mass/Vol] 31.7 g/dL 32-[address] [facility] No Panel InformationOrdered By: Dr. Hay on 09-01-2022 Estimated Creatinine Clearance Calc 46.51 ml/min [facility] Estimated GFR (MDRD) Amer 67 mL/min >60 [facility] Comment on above: GFR Calc Estimated GFR (MDRD) Non-Af Amer 55 mL/min >60 [facility] Comment on above: Non- GFR Calc Platelets bldOrdered By: Dr. Hay on 09-01-2022 Platelets (Bld) [#/Vol] 106 10*3/uL 150-450 [facility] Serum or plasma albumin francine urement (mass/volume)Ordered By: Dr. Hay on 09-01-2022 Albumin [Mass/Vol] 2.8 g/dL 3.2-5.0 [facility] Serum or plasma albumin/glob ulin mass ratioOrdered By: Dr. Hay on 09-01-2022 Albumin/Globulin [Mass ratio] 1.0 {ratio} 0.9-2.4 [facility] Serum or plasma calcium francine urement (mass/volume)Ordered By: Dr. Hay on 09-01-2022 Calcium [Mass/Vol] 8.0 mg/dL 8.5-10.1 [facility] Serum or plasma creatinine m easurement (mass/volume)Ordered By: Dr. Hay on 09-01-2022 Creatinine [Mass/Vol] 1.33 mg/dL 0.70-1.[address] [facility] Comment on above: The validity of the calculated GFR & GFRAA in patients over 70 years has not been determined. Clinical correlation is essential. Serum or plasma urea nitroge n measurement (mass/volume)Ordered By: Dr. Hay on 09-01-2022 Urea nitrogen [Mass/Vol] 21 mg/dL 7-18 [facility] Thin prep Papanicolaou smear with manual screeningOrdered By: Dr. Hay on 09-01-2022 Thin prep Papanicolaou smear with manual screening 21 U/L 15-37 [facility] Thin prep Papanicolaou smear with manual screening 3 5-15 [facility] No Panel InformationOrdered By: Dr. Hay on 08-31-2022 Activated Clotting Time 275 sec 74-137 [facility] Basophil percentageOrdered B y: Dr. Hay on 08-19-2022 Chloride [Moles/Vol] 108 mmol/L 98-107 [facility] Glucose [Mass/Vol] 158 mg/dL 74-106 [facility] Comment on above: Fasting Glucose resu lt greater than or equal to 126 mg/dL suggests DIABETES MELLITUS per A.D.A. criteria. Potassium [Moles/Vol] 4.3 mmol/L 3.5-5.[address] [facility] Sodium [Moles/Vol] 137 mmol/L 136-145 [facility] WBC (Bld) [#/Vol] 8.2 10*3/uL 4.4-11.0 [facility] Blood erythrocytes count (nu mber/volume)Ordered By: Dr. Hay on 08-19-2022 RBC (Bld) [#/Vol] 5.05 10*6/uL 4.6-6.2 [facility] Blood hemoglobin measurement (mass/volume)Ordered By: Dr. Hay on 08-19-2022 Hemoglobin (Bld) [Mass/Vol] 14.3 g/dL 13.0-16.5 [facility] Blood platelet mean volumeOr dered By: Dr. Hay on 08-19-2022 Platelet mean volume (Bld) [Entitic vol] 12.5 fL 6.2-12.0 [facility] Determination of erythrocyte mean corpuscular volume (MCV)Ordered By: Dr. Hay on 08-19-2022 MCV (RBC) [Entitic vol] 88.3 fL 80-94 [facility] Hematocrit Auto (Bld) [Volum e fraction]Ordered By: Dr. Hay on 08-19-2022 Hematocrit (Bld) [Volume fraction] 44.6 % 40-54 [facility] INR in Blood by Coagulation assayOrdered By: Dr. Hay on 08-19-2022 INR Coag (Bld) [Relative time] 1.1 {INR} [facility] Laboratory - Chemistry and C hemistry - challengeOrdered By: Dr. Hay on 08-19-2022 CO2 [Moles/Vol] 25.0 mmol/L 21.0-32.0 [facility] Urea nitrogen/Creatinine [Mass ratio] 12.0 mg/mg 10-20 [facility] - CoagulationOrde red By: Dr. Hay on 08-19-2022 aPTT Coag (Bld) [Time] 30.9 s 24.1-36.2 [facility] PT Coag (PPP) [Time] 13.4 s 11.7-14.9 [facility] - Hematology and Cell countsOrdered By: Dr. Hay on 08-19-2022 Erythrocyte distribution width (RBC) [Entitic vol] 44.8 fL 35.1-43.9 [facility] Erythrocyte distribution width (RBC) [Ratio] 13.9 % 11.6-14.6 [facility] MCH (RBC) [Entitic mass] 28.3 pg 27.0-32.0 [facility] MCHC Auto (RBC) [Mass/Vol]Or dered By: Dr. Hay on 08-19-2022 MCHC (RBC) [Mass/Vol] 32.1 g/dL 32-[address] [facility] No Panel InformationOrdered By: Dr. Hay on 08-19-2022 Estimated GFR (MDRD) Amer 72 mL/min >60 [facility] Comment on above: GFR Calc Estimated GFR (MDRD) Non-Af Amer 60 mL/min >60 [facility] Comment on above: Non- GFR Calc Platelets bldOrdered By: Dr. Hay on 08-19-2022 Platelets (Bld) [#/Vol] 151 10*3/uL 150-450 [facility] Serum or plasma calcium francine urement (mass/volume)Ordered By: Dr. Hay on 08-19-2022 Calcium [Mass/Vol] 9.0 mg/dL 8.5-10.1 [facility] Serum or plasma creatinine m easurement (mass/volume)Ordered By: Dr. Hay on 08-19-2022 Creatinine [Mass/Vol] 1.25 mg/dL 0.70-1.[address] [facility] Comment on above: The validity of the calculated GFR & GFRAA in patients over 70 years has not been determined. Clinical correlation is essential. Serum or plasma urea nitroge n measurement (mass/volume)Ordered By: Dr. Hay on 08-19-2022 Urea nitrogen [Mass/Vol] 15 mg/dL 7-18 [facility] Thin prep Papanicolaou smear with manual screeningOrdered By: Dr. Hay on 08-19-2022 Thin prep Papanicolaou smear with manual screening 4 5-15 [facility] Basophil percentageOrdered B y: Dr. Rodriguez on 06-11-2022 Chloride [Moles/Vol] 102 mmol/L 98-107 [facility] Glucose [Mass/Vol] 274 mg/dL 74-106 [facility] Comment on above: Glucose result great er than or equal to 200 mg/dLsuggests DIABETES MELLITUS per A.D.A. criteria. Potassium [Moles/Vol] 4.3 mmol/L 3.5-5.[address] [facility] Sodium [Moles/Vol] 136 mmol/L 136-145 [facility] Laboratory - Chemistry and C hemistry - challengeOrdered By: Dr. Rodriguez on 06-11-2022 CO2 [Moles/Vol] 24.0 mmol/L 21.0-32.0 [facility] Magnesium [Mass/Vol] 2.2 mg/dL 1.6-2.6 [facility] Urea nitrogen/Creatinine [Mass ratio] 15.7 mg/mg 10-20 [facility] No Panel InformationOrdered By: Dr. Rodriguez on 06-11-2022 Estimated GFR (MDRD) Amer 67 mL/min >60 [facility] Comment on above: GFR Calc Estimated GFR (MDRD) Non-Af Amer 55 mL/min >60 [facility] Comment on above: Non- GFR Calc Serum or plasma calcium francine urement (mass/volume)Ordered By: Dr. Rodriguez on 06-11-2022 Calcium [Mass/Vol] 8.7 mg/dL 8.5-10.1 [facility] Serum or plasma creatinine m easurement (mass/volume)Ordered By: Dr. Rodriguez on 06-11-2022 Creatinine [Mass/Vol] 1.34 mg/dL 0.70-1.[address] [facility] Comment on above: The validity of the calculated GFR & GFRAA in patients over 70 years has not been determined. Clinical correlation is essential. Serum or plasma urea nitroge n measurement (mass/volume)Ordered By: Dr. Rodriguez on 06-11-2022 Urea nitrogen [Mass/Vol] 21 mg/dL 7-18 [facility] Thin prep Papanicolaou smear with manual screeningOrdered By: Dr. Rodriguez on 06-11-2022 Thin prep Papanicolaou smear with manual screening 10 5-15 [facility] Absolute lymphocyte countOrd ered By: Luz Elena Mckeon on 04-14-2022 Lymphocytes Auto (Unsp spec) [#/Vol] 1.60 10*3/uL 0.83-4.51 [facility] Basophil percentageOrdered B y: Luz Elena Mckeon on 04-14-2022 Basophils/100 WBC (Bld) 0.3 % 0-1 [facility] Chloride [Moles/Vol] 106 mmol/L 98-107 [facility] Eosinophils/100 WBC (Bld) 1.5 % 0-5 [facility] Glucose [Mass/Vol] 211 mg/dL 74-106 [facility] Comment on above: Glucose result great er than or equal to 200 mg/dLsuggests DIABETES MELLITUS per A.D.A. criteria. Neutrophils (Bld) [#/Vol] 3.8 10*3/uL 2.0-7.7 [facility] Neutrophils/100 WBC (Bld) 61.3 % 47-70 [facility] Potassium [Moles/Vol] 4.4 mmol/L 3.5-5.[address] [facility] Sodium [Moles/Vol] 136 mmol/L 136-145 [facility] WBC (Bld) [#/Vol] 6.2 10*3/uL 4.4-11.0 [facility] Blood erythrocytes count (nu mber/volume)Ordered By: Luz Elena Mckeon on 04-14-2022 RBC (Bld) [#/Vol] 4.87 10*6/uL 4.6-6.2 [facility] Blood hemoglobin measurement (mass/volume)Ordered By: Luz Elena Mckeon on 04-14-2022 Hemoglobin (Bld) [Mass/Vol] 14.1 g/dL 13.0-16.5 [facility] Blood lymphocytes/100 leukoc ytesOrdered By: Luz Elena Mckeon on 04-14-2022 Lymphocytes/100 WBC (Bld) 25.8 % 19-41 [facility] Blood monocytes/100 leukocyt esOrdered By: Luz Elena Mckeon on 04-14-2022 Monocytes/100 WBC (Bld) 10.8 % 0-10 [facility] Blood platelet mean volumeOr dered By: Luz Elena Mckeon on 04-14-2022 Platelet mean volume (Bld) [Entitic vol] 12.8 fL 6.2-12.0 [facility] Determination of erythrocyte mean corpuscular volume (MCV)Ordered By: Luz Elena Mckeon on 04-14-2022 MCV (RBC) [Entitic vol] 88.1 fL 80-94 [facility] Hematocrit Auto (Bld) [Volum e fraction]Ordered By: Luz Elena Mckeon on 04-14-2022 Hematocrit (Bld) [Volume fraction] 42.9 % 40-54 [facility] Laboratory - Chemistry and C hemistry - challengeOrdered By: Luz Elena Mckeon on 04-14-2022 CO2 [Moles/Vol] 25.0 mmol/L 21.0-32.0 [facility] Natriuretic peptide B (Bld) [Mass/Vol] 54.2 pg/mL 0-100 [facility] Urea nitrogen/Creatinine [Mass ratio] 13.3 mg/mg 10-20 [facility] - Hematology and Cell countsOrdered By: Luz Elena Mckeon on 04-14-2022 Erythrocyte distribution width (RBC) [Entitic vol] 44.7 fL 35.1-43.9 [facility] Erythrocyte distribution width (RBC) [Ratio] 13.9 % 11.6-14.6 [facility] Immature granulocytes/100 WBC (Bld) 0.300 % 0.0-0.9 [facility] Comment on above: IG% - Immature Granu locytes (promyelocytes, myelocytes and metamyelocytes) > 1% indicates that a LEFT SHIFT is Present. MCH (RBC) [Entitic mass] 29.0 pg 27.0-32.0 [facility] Nucleated RBC/100 WBC (Bld) [Ratio] 0 % 0-5 [facility] MCHC Auto (RBC) [Mass/Vol]Or dered By: Luz Elena Mckeon on 04-14-2022 MCHC (RBC) [Mass/Vol] 32.9 g/dL 32-[address] [facility] No Panel InformationOrdered By: Luz Elena Mckeon on 04-14-2022 Estimated GFR (MDRD) Amer 81 mL/min >60 [facility] Comment on above: GFR Calc Estimated GFR (MDRD) Non-Af Amer 67 mL/min >60 [facility] Comment on above: Non- GFR Calc Platelets bldOrdered By: Loco Mckeon on 04-14-2022 Platelets (Bld) [#/Vol] 150 10*3/uL 150-450 [facility] Serum or plasma calcium francine urement (mass/volume)Ordered By: Luz Elena Mckeon on 04-14-2022 Calcium [Mass/Vol] 8.4 mg/dL 8.5-10.1 [facility] Serum or plasma creatinine m easurement (mass/volume)Ordered By: Luz Elena Mckeon on 04-14-2022 Creatinine [Mass/Vol] 1.13 mg/dL 0.70-1.[address] [facility] Comment on above: The validity of the calculated GFR & GFRAA in patients over 70 years has not been determined. Clinical correlation is essential. Serum or plasma urea nitroge n measurement (mass/volume)Ordered By: Luz Elena Mckeon on 04-14-2022 Urea nitrogen [Mass/Vol] 15 mg/dL 7-18 [facility] Thin prep Papanicolaou smear with manual screeningOrdered By: Luz Elena Mckeon on 04-14-2022 Thin prep Papanicolaou smear with manual screening 5 5-15 [facility] - Microbiology an d Antimicrobial susceptibilityon 03-27-2022 SARS-CoV-2 (COVID-19) RNA REAGAN+probe Ql (Unsp spec) Detected [facility] No Panel Informationon 03-27 Influenza Types A,B Rapid (Clinic) Not detected [facility] Absolute lymphocyte counton 11-21-2021 Lymphocytes Auto (Unsp spec) [#/Vol] 1.23 10*3/uL 0.83-4.51 [facility] Work Phone: Basophil percentageon 2021 Basophils/100 WBC (Bld) 0.3 % 0-1 [facility] Work Phone: Chloride [Moles/Vol] 106 mmol/L 98-107 [facility] Work Phone: Eosinophils/100 WBC (Bld) 1.2 % 0-5 [facility] Work Phone: Glucose [Mass/Vol] 166 mg/dL 74-106 [facility] Work Phone: Comment on above: Fasting Glucose resu lt greater than or equal to 126 mg/dL suggests DIABETES MELLITUS per A.D.A. criteria. Neutrophils (Bld) [#/Vol] 4.7 10*3/uL 2.0-7.7 [facility] Work Phone: [phone] Neutrophils/100 WBC (Bld) 69.8 % 47-70 [facility] Work Phone: Potassium [Moles/Vol] 4.2 mmol/L 3.5-5.1 [facility] Work Phone: Sodium [Moles/Vol] 140 mmol/L 136-145 [facility] Work Phone: [phone] WBC (Bld) [#/Vol] 6.7 10*3/uL 4.4-11.0 [facility] Work Phone: Blood erythrocytes count (nu mber/volume)on 11-21-2021 RBC (Bld) [#/Vol] 5.06 10*6/uL 4.6-6.2 [facility] Work Phone: Blood hemoglobin measurement (mass/volume)on 11-21-2021 Hemoglobin (Bld) [Mass/Vol] 14.3 g/dL 13.0-16.5 [facility] Work Phone: [phone] Blood lymphocytes/100 leukoc yteson 11-21-2021 Lymphocytes/100 WBC (Bld) 18.4 % 19-41 [facility] Work Phone: Blood monocytes/100 leukocyt eson 11-21-2021 Monocytes/100 WBC (Bld) 9.9 % 0-10 [facility] Work Phone: [phone] Blood platelet mean volumeon 11-21-2021 Platelet mean volume (Bld) [Entitic vol] 12.4 fL 6.2-12.0 [facility] Work Phone: Determination of erythrocyte mean corpuscular volume (MCV)on 11-21-2021 MCV (RBC) [Entitic vol] 89.1 fL 80-94 [facility] Work Phone: Hematocrit Auto (Bld) [Volum e fraction]on 11-21-2021 Hematocrit (Bld) [Volume fraction] 45.1 % 40-54 [facility] Work Phone: Laboratory - Chemistry and C hemistry - challengeon 11-21-2021 CO2 [Moles/Vol] 27.0 mmol/L 21.0-32.0 [facility] Work Phone: Natriuretic peptide B (Bld) [Mass/Vol] 60.9 pg/mL 0-100 [facility] Work Phone: Urea nitrogen/Creatinine [Mass ratio] 12.9 mg/mg 10-20 [facility] Work Phone: Laboratory - Hematology and Cell countson 11-21-2021 Erythrocyte distribution width (RBC) [Entitic vol] 45.1 fL 35.1-43.9 [facility] Work Phone: Erythrocyte distribution width (RBC) [Ratio] 14.0 % 11.6-14.6 [facility] Work Phone: Immature granulocytes/100 WBC (Bld) 0.400 % 0.0-0.9 [facility] Work Phone: Comment on above: IG% - Immature Granu locytes (promyelocytes, myelocytes and metamyelocytes) > 1% indicates that a LEFT SHIFT is Present. MCH (RBC) [Entitic mass] 28.3 pg 27.0-32.0 [facility] Work Phone: Nucleated RBC/100 WBC (Bld) [Ratio] 0 % 0-5 [facility] Work Phone: MCHC Auto (RBC) [Mass/Vol]on 11-21-2021 MCHC (RBC) [Mass/Vol] 31.7 g/dL 32-[address] [facility] Work Phone: No Panel Informationon 11-21 Estimated GFR (MDRD) Amer 63 mL/min >60 [facility] Work Phone: Comment on above: GFR Calc Estimated GFR (MDRD) Non-Af Amer 52 mL/min >60 [facility] Work Phone: Comment on above: Non- GFR Calc Platelets bldon 11-21-2021 Platelets (Bld) [#/Vol] 135 10*3/uL 150-450 [facility] Work Phone: Serum or plasma calcium francine urement (mass/volume)on 11-21-2021 Calcium [Mass/Vol] 8.9 mg/dL 8.5-10.1 [facility] Work Phone: Serum or plasma creatinine m easurement (mass/volume)on 11-21-2021 Creatinine [Mass/Vol] 1.40 mg/dL 0.70-1.[address] [facility] Work Phone: Comment on above: The validity of the calculated GFR & GFRAA in patients over 70 years has not been determined. Clinical correlation is essential. Serum or plasma urea nitroge n measurement (mass/volume)on 11-21-2021 Urea nitrogen [Mass/Vol] 18 mg/dL 7-18 [facility] Work Phone: Thin prep Papanicolaou smear with manual screeningon 11-21-2021 Thin prep Papanicolaou smear with manual screening 7 5-15 [facility] Work Phone: Absolute lymphocyte counton 11-16-2021 Lymphocytes Auto (Unsp spec) [#/Vol] 2.06 10*3/uL 0.83-4.51 [facility] Work Phone: Basophil percentageon 2021 Basophils/100 WBC (Bld) 0.3 % 0-1 [facility] Work Phone: Chloride [Moles/Vol] 104 mmol/L 98-107 [facility] Work Phone: Eosinophils/100 WBC (Bld) 1.4 % 0-5 [facility] Work Phone: Glucose [Mass/Vol] 170 mg/dL 74-106 [facility] Work Phone: Comment on above: Fasting Glucose resu lt greater than or equal to 126 mg/dL suggests DIABETES MELLITUS per A.D.A. criteria. Neutrophils (Bld) [#/Vol] 5.0 10*3/uL 2.0-7.7 [facility] Work Phone: Neutrophils/100 WBC (Bld) 62.3 % 47-70 [facility] Work Phone: Potassium [Moles/Vol] 4.4 mmol/L 3.5-5.[address] [facility] Work Phone: Comment on above: Slight Hemolysis, Re sult may be falsely increased. Sodium [Moles/Vol] 137 mmol/L 136-145 [facility] Work Phone: WBC (Bld) [#/Vol] 7.9 10*3/uL 4.4-11.0 [facility] Work Phone: Blood erythrocytes count (nu mber/volume)on 11-16-2021 RBC (Bld) [#/Vol] 5.42 10*6/uL 4.6-6.2 [facility] Work Phone: Blood hemoglobin measurement (mass/volume)on 11-16-2021 Hemoglobin (Bld) [Mass/Vol] 15.6 g/dL 13.0-16.5 [facility] Work Phone: Blood lymphocytes/100 leukoc yteson 11-16-2021 Lymphocytes/100 WBC (Bld) 26.0 % 19-41 [facility] Work Phone: Blood monocytes/100 leukocyt eson 11-16-2021 Monocytes/100 WBC (Bld) 9.6 % 0-10 [facility] Work Phone: Blood platelet mean volumeon 11-16-2021 Platelet mean volume (Bld) [Entitic vol] 12.9 fL 6.2-12.0 [facility] Work Phone: Determination of erythrocyte mean corpuscular volume (MCV)on 11-16-2021 MCV (RBC) [Entitic vol] 89.3 fL 80-94 [facility] Work Phone: Hematocrit Auto (Bld) [Volum e fraction]on 07-17-2022 Hematocrit (Bld) [Volume fraction] 48.4 % 40-54 [facility] Work Phone: Laboratory - Chemistry and C hemistry - challengeon 11-16-2021 CO2 [Moles/Vol] 27.0 mmol/L 21.0-32.0 [facility] Work Phone: Urea nitrogen/Creatinine [Mass ratio] 11.6 mg/mg 10-20 [facility] Work Phone: Laboratory - Hematology and Cell countson 11-16-2021 Erythrocyte distribution width (RBC) [Entitic vol] 44.5 fL 35.1-43.9 [facility] Work Phone: Erythrocyte distribution width (RBC) [Ratio] 13.8 % 11.6-14.6 [facility] Work Phone: Immature granulocytes/100 WBC (Bld) 0.400 % 0.0-0.9 [facility] Work Phone: Comment on above: IG% - Immature Granu locytes (promyelocytes, myelocytes and metamyelocytes) > 1% indicates that a LEFT SHIFT is Present. MCH (RBC) [Entitic mass] 28.8 pg 27.0-32.0 [facility] Work Phone: Nucleated RBC/100 WBC (Bld) [Ratio] 0 % 0-5 [facility] Work Phone: MCHC Auto (RBC) [Mass/Vol]on 11-16-2021 MCHC (RBC) [Mass/Vol] 32.2 g/dL 32-[address] [facility] Work Phone: No Panel Informationon 11-16 Troponin I High Sensitivity 7 pg/mL 3.0-78.0 [facility] Work Phone: Comment on above: Please Note: New [place] t Units and Gender Specific Reference Ranges. For more information see Policy Stat Procedure [place] High Sensitivity Troponin (TNIH) and attachments. Estimated Creatinine Clearance Calc 45.54 ml/min [facility] Work Phone: Estimated GFR (MDRD) Amer 64 mL/min >60 [facility] Work Phone: Comment on above: GFR Calc Estimated GFR (MDRD) Non-Af Amer 53 mL/min >60 [facility] Work Phone: Comment on above: Non- GFR Calc Platelets bldon 11-16-2021 Platelets (Bld) [#/Vol] 142 10*3/uL 150-450 [facility] Work Phone: Serum or plasma calcium francine urement (mass/volume)on 11-16-2021 Calcium [Mass/Vol] 9.2 mg/dL 8.5-10.1 [facility] Work Phone: Serum or plasma creatinine m easurement (mass/volume)on 11-16-2021 Creatinine [Mass/Vol] 1.38 mg/dL 0.70-1.[address] [facility] Work Phone: Comment on above: The validity of the calculated GFR & GFRAA in patients over 70 years has not been determined. Clinical correlation is essential. Serum or plasma urea nitroge n measurement (mass/volume)on 11-16-2021 Urea nitrogen [Mass/Vol] 16 mg/dL 7-18 [facility] Work Phone: Thin prep Papanicolaou smear with manual screeningon 11-16-2021 Thin prep Papanicolaou smear with manual screening 6 5-15 [facility] Work Phone: Basophil percentageon 2021 Chloride [Moles/Vol] 105 mmol/L 98-107 [facility] Work Phone: Glucose [Mass/Vol] 246 mg/dL 74-106 [facility] Work Phone: Comment on above: Glucose result great er than or equal to 200 mg/dLsuggests DIABETES MELLITUS per A.D.A. criteria. Potassium [Moles/Vol] 4.2 mmol/L 3.5-5.[address] [facility] Work Phone: Sodium [Moles/Vol] 137 mmol/L 136-145 [facility] Work Phone: Laboratory - Chemistry and C hemistry - challengeon 10-28-2021 CO2 [Moles/Vol] 24.0 mmol/L 21.0-32.0 [facility] Work Phone: Urea nitrogen/Creatinine [Mass ratio] 15.6 mg/mg 10-20 [facility] Work Phone: No Panel Informationon 10-28 Estimated GFR (MDRD) Amer 74 mL/min >60 [facility] Work Phone: Comment on above: GFR Calc Estimated GFR (MDRD) Non-Af Amer 61 mL/min >60 [facility] Work Phone: Comment on above: Non- GFR Calc Serum or plasma calcium francine urement (mass/volume)on 10-28-2021 Calcium [Mass/Vol] 8.9 mg/dL 8.5-10.1 [facility] Work Phone: Serum or plasma creatinine m easurement (mass/volume)on 10-28-2021 Creatinine [Mass/Vol] 1.22 mg/dL 0.70-1.[address] [facility] Work Phone: Comment on above: The validity of the calculated GFR & GFRAA in patients over 70 years has not been determined. Clinical correlation is essential. Serum or plasma urea nitroge n measurement (mass/volume)on 10-28-2021 Urea nitrogen [Mass/Vol] 19 mg/dL 7-18 [facility] Work Phone: Thin prep Papanicolaou smear with manual screeningon 10-28-2021 Thin prep Papanicolaou smear with manual screening 8 5-15 [facility] Work Phone: Whole blood hemoglobin A1c/t otal hemoglobin ratio (mass fraction)on 10-28-2021 HbA1c (Bld) [Mass fraction] 7.7 % 3.8-5.6 [facility] Work Phone: Comment on above: Normal < 5.7 % Predi abetic 5.7 - 6.4 % Diabetic >or= 6.5 % Please note range changes. Absolute lymphocyte counton 05-17-2022 Lymphocytes Auto (Unsp spec) [#/Vol] 1.24 10*3/uL 0.83-4.51 [facility] Work Phone: Basophil percentageon 2021 Basophils/100 WBC (Bld) 0.5 % 0-1 [facility] Work Phone: Chloride [Moles/Vol] 107 mmol/L 98-107 [facility] Work Phone: Eosinophils/100 WBC (Bld) 1.7 % 0-5 [facility] Work Phone: Glucose [Mass/Vol] 134 mg/dL 74-106 [facility] Work Phone: Comment on above: Fasting Glucose resu lt greater than or equal to 126 mg/dL suggests DIABETES MELLITUS per A.D.A. criteria. Neutrophils (Bld) [#/Vol] 4.4 10*3/uL 2.0-7.7 [facility] Work Phone: Neutrophils/100 WBC (Bld) 68.0 % 47-70 [facility] Work Phone: Potassium [Moles/Vol] 4.3 mmol/L 3.5-5.[address] [facility] Work Phone: Sodium [Moles/Vol] 139 mmol/L 136-145 [facility] Work Phone: WBC (Bld) [#/Vol] 6.4 10*3/uL 4.4-11.0 [facility] Work Phone: Blood erythrocytes count (nu mber/volume)on 09-16-2021 RBC (Bld) [#/Vol] 4.84 10*6/uL 4.6-6.2 [facility] Work Phone: Blood hemoglobin measurement (mass/volume)on 09-16-2021 Hemoglobin (Bld) [Mass/Vol] 14.1 g/dL 13.0-16.5 [facility] Work Phone: Blood lymphocytes/100 leukoc yteson 09-16-2021 Lymphocytes/100 WBC (Bld) 19.3 % 19-41 [facility] Work Phone: Blood monocytes/100 leukocyt eson 09-16-2021 Monocytes/100 WBC (Bld) 10.0 % 0-10 [facility] Work Phone: Blood platelet mean volumeon 09-16-2021 Platelet mean volume (Bld) [Entitic vol] 12.7 fL 6.2-12.0 [facility] Work Phone: Determination of erythrocyte mean corpuscular volume (MCV)on 09-16-2021 MCV (RBC) [Entitic vol] 90.1 fL 80-94 [facility] Work Phone: Hematocrit Auto (Bld) [Volum e fraction]on 09-16-2021 Hematocrit (Bld) [Volume fraction] 43.6 % 40-54 [facility] Work Phone: Laboratory - Chemistry and C hemistry - challengeon 09-16-2021 CO2 [Moles/Vol] 27.0 mmol/L 21.0-32.0 [facility] Work Phone: Natriuretic peptide B (Bld) [Mass/Vol] 80.9 pg/mL 0-100 [facility] Work Phone: Urea nitrogen/Creatinine [Mass ratio] 13.7 mg/mg 10-20 [facility] Work Phone: Laboratory - Hematology and Cell countson 09-16-2021 Erythrocyte distribution width (RBC) [Entitic vol] 46.2 fL 35.1-43.9 [facility] Work Phone: Erythrocyte distribution width (RBC) [Ratio] 13.9 % 11.6-14.6 [facility] Work Phone: Immature granulocytes/100 WBC (Bld) 0.500 % 0.0-0.9 [facility] Work Phone: Comment on above: IG% - Immature Granu locytes (promyelocytes, myelocytes and metamyelocytes) > 1% indicates that a LEFT SHIFT is Present. MCH (RBC) [Entitic mass] 29.1 pg 27.0-32.0 [facility] Work Phone: Nucleated RBC/100 WBC (Bld) [Ratio] 0 % 0-5 [facility] Work Phone: MCHC Auto (RBC) [Mass/Vol]on 09-16-2021 MCHC (RBC) [Mass/Vol] 32.3 g/dL 32-[address] [facility] Work Phone: No Panel Informationon 09-16 Estimated GFR (MDRD) Amer 73 mL/min >60 [facility] Work Phone: Comment on above: GFR Calc Estimated GFR (MDRD) Non-Af Amer 60 mL/min >60 [facility] Work Phone: Comment on above: Non- GFR Calc Platelets bldon 09-16-2021 Platelets (Bld) [#/Vol] 133 10*3/uL 150-450 [facility] Work Phone: Serum or plasma calcium francine urement (mass/volume)on 09-16-2021 Calcium [Mass/Vol] 9.0 mg/dL 8.5-10.1 [facility] Work Phone: Serum or plasma creatinine m easurement (mass/volume)on 09-16-2021 Creatinine [Mass/Vol] 1.24 mg/dL 0.70-1.[address] [facility] Work Phone: Comment on above: The validity of the calculated GFR & GFRAA in patients over 70 years has not been determined. Clinical correlation is essential. Serum or plasma urea nitroge n measurement (mass/volume)on 09-16-2021 Urea nitrogen [Mass/Vol] 17 mg/dL 7-18 [facility] Work Phone: Thin prep Papanicolaou smear with manual screeningon 09-16-2021 Thin prep Papanicolaou smear with manual screening 5 5-15 [facility] Work Phone: Absolute lymphocyte counton 06-10-2021 Lymphocytes Auto (Unsp spec) [#/Vol] 1.00 10*3/uL 0.83-4.51 [facility] Work Phone: Basophil percentageon 2021 Basophils/100 WBC (Bld) 0.3 % 0-1 [facility] Work Phone: [phone] Chloride [Moles/Vol] 107 mmol/L 98-107 [facility] Work Phone: Eosinophils/100 WBC (Bld) 1.7 % 0-5 [facility] Work Phone: Glucose [Mass/Vol] 150 mg/dL 74-106 [facility] Work Phone: Comment on above: Fasting Glucose resu lt greater than or equal to 126 mg/dL suggests DIABETES MELLITUS per A.D.A. criteria. Neutrophils (Bld) [#/Vol] 4.9 10*3/uL 2.0-7.7 [facility] Work Phone: Neutrophils/100 WBC (Bld) 73.8 % 47-70 [facility] Work Phone: [phone] Potassium [Moles/Vol] 5.6 mmol/L 3.5-5.[address] [facility] Work Phone: Comment on above: Moderate Hemolysis, Result may be falsely increased. Sodium [Moles/Vol] 139 mmol/L 136-145 [facility] Work Phone: WBC (Bld) [#/Vol] 6.7 10*3/uL 4.4-11.0 [facility] Work Phone: Blood erythrocytes count (nu mber/volume)on 06-10-2021 RBC (Bld) [#/Vol] 5.17 10*6/uL 4.6-6.2 [facility] Work Phone: Blood hemoglobin measurement (mass/volume)on 06-10-2021 Hemoglobin (Bld) [Mass/Vol] 15.5 g/dL 13.0-16.5 [facility] Work Phone: Blood lymphocytes/100 leukoc yteson 06-10-2021 Lymphocytes/100 WBC (Bld) 15.0 % 19-41 [facility] Work Phone: Blood monocytes/100 leukocyt eson 06-10-2021 Monocytes/100 WBC (Bld) 8.7 % 0-10 [facility] Work Phone: Blood platelet mean volumeon 06-10-2021 Platelet mean volume (Bld) [Entitic vol] 12.7 fL 6.2-12.0 [facility] Work Phone: Determination of erythrocyte mean corpuscular volume (MCV)on 06-10-2021 MCV (RBC) [Entitic vol] 89.6 fL 80-94 [facility] Work Phone: Hematocrit Auto (Bld) [Volum e fraction]on 06-10-2021 Hematocrit (Bld) [Volume fraction] 46.3 % 40-54 [facility] Work Phone: Laboratory - Chemistry and C hemistry - challengeon 06-10-2021 CO2 [Moles/Vol] 28.0 mmol/L 21.0-32.0 [facility] Work Phone: Urea nitrogen/Creatinine [Mass ratio] 12.7 mg/mg 10-20 [facility] Work Phone: Laboratory - Hematology and Cell countson 06-10-2021 Erythrocyte distribution width (RBC) [Entitic vol] 45.9 fL 35.1-43.9 [facility] Work Phone: Erythrocyte distribution width (RBC) [Ratio] 14.1 % 11.6-14.6 [facility] Work Phone: Immature granulocytes/100 WBC (Bld) 0.500 % 0.0-0.9 [facility] Work Phone: Comment on above: IG% - Immature Granu locytes (promyelocytes, myelocytes and metamyelocytes) > 1% indicates that a LEFT SHIFT is Present. MCH (RBC) [Entitic mass] 30.0 pg 27.0-32.0 [facility] Work Phone: Nucleated RBC/100 WBC (Bld) [Ratio] 0 % 0-5 [facility] Work Phone: MCHC Auto (RBC) [Mass/Vol]on 06-10-2021 MCHC (RBC) [Mass/Vol] 33.5 g/dL 32-[address] [facility] Work Phone: No Panel Informationon 06-10 Troponin I High Sensitivity 10 pg/mL 3.0-78.0 [facility] Work Phone: Comment on above: Please Note: New [place] t Units and Gender Specific Reference Ranges. For more information see Policy Stat Procedure [place] High Sensitivity Troponin (TNIH) and attachments. Estimated Creatinine Clearance Calc 47.63 ml/min [facility] Work Phone: Estimated GFR (MDRD) Amer 67 mL/min >60 [facility] Work Phone: Comment on above: GFR Calc Estimated GFR (MDRD) Non-Af Amer 55 mL/min >60 [facility] Work Phone: Comment on above: Non- GFR Calc Platelets bldon 06-10-2021 Platelets (Bld) [#/Vol] 146 10*3/uL 150-450 [facility] Work Phone: Serum or plasma calcium francine urement (mass/volume)on 06-10-2021 Calcium [Mass/Vol] 8.7 mg/dL 8.5-10.1 [facility] Work Phone: Serum or plasma creatinine m easurement (mass/volume)on 06-10-2021 Creatinine [Mass/Vol] 1.34 mg/dL 0.70-1.[address] [facility] Work Phone: Comment on above: The validity of the calculated GFR & GFRAA in patients over 70 years has not been determined. Clinical correlation is essential. Serum or plasma urea nitroge n measurement (mass/volume)on 06-10-2021 Urea nitrogen [Mass/Vol] 17 mg/dL 7-18 [facility] Work Phone: Thin prep Papanicolaou smear with manual screeningon 06-10-2021 Thin prep Papanicolaou smear with manual screening 4 5-15 [facility] Work Phone: Absolute lymphocyte counton 05-19-2021 Lymphocytes Auto (Unsp spec) [#/Vol] 1.72 10*3/uL 0.83-4.51 [facility] Work Phone: Basophil percentageon 2021 Basophils/100 WBC (Bld) 0.4 % 0-1 [facility] Work Phone: Bilirubin [Mass/Vol] 1.20 mg/dL 0.20-1.00 [facility] Work Phone: [phone] Comment on above: For patients on eltr ombopag therapy, use of Dimension [place] TBIL is not recommended. Chloride [Moles/Vol] 106 mmol/L 98-107 [facility] Work Phone: Eosinophils/100 WBC (Bld) 1.2 % 0-5 [facility] Work Phone: [phone] Glucose [Mass/Vol] 182 mg/dL 74-106 [facility] Work Phone: Comment on above: Fasting Glucose resu lt greater than or equal to 126 mg/dL suggests DIABETES MELLITUS per A.D.A. criteria. Neutrophils (Bld) [#/Vol] 6.6 10*3/uL 2.0-7.7 [facility] Work Phone: Neutrophils/100 WBC (Bld) 70.5 % 47-70 [facility] Work Phone: Potassium [Moles/Vol] 3.8 mmol/L 3.5-5.[address] [facility] Work Phone: Protein [Mass/Vol] 7.9 g/dL 6.4-8.2 [facility] Work Phone: Sodium [Moles/Vol] 139 mmol/L 136-145 [facility] Work Phone: WBC (Bld) [#/Vol] 9.4 10*3/uL 4.4-11.0 [facility] Work [facility]: Basophil percentage 0 SEEN /hpf [facility] Work Phone: Bilirubin Test strip Ql (U)o n 05-19-2021 Bilirubin Ql (U) Negative Negative [facility] Work Phone: Blood erythrocytes count (nu mber/volume)on 05-19-2021 RBC (Bld) [#/Vol] 5.30 10*6/uL 4.6-6.2 [facility] Work Phone: Blood hemoglobin measurement (mass/volume)on 05-19-2021 Hemoglobin (Bld) [Mass/Vol] 15.3 g/dL 13.0-16.5 [facility] Work Phone: Blood lymphocytes/100 leukoc yteson 05-19-2021 Lymphocytes/100 WBC (Bld) 18.3 % 19-41 [facility] Work Phone: [phone] Blood monocytes/100 leukocyt eson 05-19-2021 Monocytes/100 WBC (Bld) 9.3 % 0-10 [facility] Work Phone: Blood platelet mean volumeon 05-19-2021 Platelet mean volume (Bld) [Entitic vol] 12.5 fL 6.2-12.0 [facility] Work Phone: Determination of erythrocyte mean corpuscular volume (MCV)on 05-19-2021 MCV (RBC) [Entitic vol] 89.8 fL 80-94 [facility] Work Phone: [phone] Hematocrit Auto (Bld) [Volum e fraction]on 05-19-2021 Hematocrit (Bld) [Volume fraction] 47.6 % 40-54 [facility] Work Phone: Ketones Test strip Ql (U)on 05-19-2021 Ketones Ql (U) Negative Negative [facility] Work Phone: Laboratory - Chemistry and C hemistry - challengeon 05-19-2021 ALP [Catalytic activity/Vol] 156 U/L 45-117 [facility] Work Phone: ALT [Catalytic activity/Vol] 44 U/L 16-61 [facility] Work Phone: CO2 [Moles/Vol] 26.0 mmol/L 21.0-32.0 [facility] Work Phone: Globulin (S) [Mass/Vol] 4.2 g/dL 2.2-4.2 [facility] Work Phone: Lipase [Catalytic activity/Vol] 199 U/L 73-393 [facility] Work Phone: Urea nitrogen/Creatinine [Mass ratio] 13.8 mg/mg 10-20 [facility] Work Phone: Laboratory - Hematology and Cell countson 05-19-2021 Erythrocyte distribution width (RBC) [Entitic vol] 46.7 fL 35.1-43.9 [facility] Work Phone: Erythrocyte distribution width (RBC) [Ratio] 14.3 % 11.6-14.6 [facility] Work Phone: Immature granulocytes/100 WBC (Bld) 0.300 % 0.0-0.9 [facility] Work Phone: Comment on above: IG% - Immature Granu locytes (promyelocytes, myelocytes and metamyelocytes) > 1% indicates that a LEFT SHIFT is Present. MCH (RBC) [Entitic mass] 28.9 pg 27.0-32.0 [facility] Work Phone: Nucleated RBC/100 WBC (Bld) [Ratio] 0 % 0-5 [facility] Work Phone: MCHC Auto (RBC) [Mass/Vol]on 05-19-2021 MCHC (RBC) [Mass/Vol] 32.1 g/dL 32-[address] [facility] Work Phone: Mucus LM Ql (Urine sed)on Mucus Ql (Urine sed) 0 SEEN /hpf [facility] Work Phone: Nitrite Test strip Ql (U)on 05-19-2021 Nitrite Ql (U) Negative Negative [facility] Work Phone: No Panel Informationon 05-19 Estimated Creatinine Clearance Calc 46.25 ml/min [facility] Work Phone: Estimated GFR (MDRD) Amer 65 mL/min >60 [facility] Work Phone: Comment on above: GFR Calc Estimated GFR (MDRD) Non-Af Amer 53 mL/min >60 [facility] Work Phone: Comment on above: Non- GFR Calc Platelets bldon 05-19-2021 Platelets (Bld) [#/Vol] 158 10*3/uL 150-450 [facility] Work Phone: Protein Test strip Ql (U)on 05-19-2021 Protein Ql (U) Negative Negative [facility] Work Phone: Serum or plasma albumin francine urement (mass/volume)on 05-19-2021 Albumin [Mass/Vol] 3.7 g/dL 3.2-5.0 [facility] Work Phone: Serum or plasma albumin/glob ulin mass ratioon 05-19-2021 Albumin/Globulin [Mass ratio] 0.9 {ratio} 0.9-2.4 [facility] Work Phone: Serum or plasma calcium francine urement (mass/volume)on 05-19-2021 Calcium [Mass/Vol] 9.2 mg/dL 8.5-10.1 [facility] Work Phone: Serum or plasma creatinine m easurement (mass/volume)on 05-19-2021 Creatinine [Mass/Vol] 1.38 mg/dL 0.70-1.[address] [facility] Work Phone: Comment on above: The validity of the calculated GFR & GFRAA in patients over 70 years has not been determined. Clinical correlation is essential. Serum or plasma urea nitroge n measurement (mass/volume)on 05-19-2021 Urea nitrogen [Mass/Vol] 19 mg/dL 7-18 [facility] Work Phone: Squamous epithelial cells de tection in urine sediment by light microscopyon 05-19-2021 Epithelial cells.squamous LM Ql (Urine sed) 0 SEEN /hpf [facility] Work Phone: Thin prep Papanicolaou smear with manual screeningon 05-19-2021 Thin prep Papanicolaou smear with manual screening 25 U/L 15-37 [facility] Work Phone: Thin prep Papanicolaou smear with manual screening 7 5-15 [facility] Work Phone: Urine blood detectionon 05-03 RBC Ql (U) Negative Negative [facility] Work Phone: RBC Ql (U) 0 SEEN /hpf [facility] Work Phone: Urine clarityon 05-19-2021 Clarity (U) Clear Clear [facility] Work Phone: Urine color determinationon 05-19-2021 Color (U) Straw Yellow [facility] Work Phone: Urine glucose detectionon Glucose Ql (U) Normal mg/dl Normal [facility] Work Phone: Urine leukocyte esterase det ection by dipstickon 05-19-2021 Leukocyte esterase Test strip Ql (U) Negative Negative [facility] Work Phone: Urine pHon 05-19-2021 pH (U) 5.0 [pH] [facility] Work Phone: Urine sediment bacteria coun t by microscopy (number/high power field)on 05-19-2021 Bacteria LM.HPF (Urine sed) [#/Area] 0 /[HPF] None Seen [facility] Work Phone: Urine specific gravity measu rementon 05-19-2021 Specific gravity (U) [Rel density] 1.010 [facility] Work Phone: Urobilinogen Auto test strip Ql (U)on 05-19-2021 Urobilinogen Ql (U) Normal mg/dl Normal [facility] Work Phone: CT ANGIOGRAM AORTA [...] descending thoracic aorta is tortuous within its [id number] course but is not aneurysmal. The abdominal [...] particularly at L4-L5 and L5-S1. IMAGING FACILITY: [facility]. SB/ev3, Ince Workstation ID: [id number] Dictated by: YAS IYER on WedFeb 26, 2021 1:26:53 PM EDT Transcribed by: KEIKO CORLEY on WedFeb 26, 2021 1:43:47 PM EDT Finalized by: YAS IYER on WedFeb 27, 2021 7:40:59 AM EDT Normal [facility] Comment on above: Order Comment: Injur y/Trauma or Illness?:Illness/Other How long have you had these symptoms (acute/chronic)?:Acute Reason for exam?:Coronary artery disease involving [place] coronary artery of [place] heart with angina pectoris, recent heart cath Type of Exam?:Subsequent/Follow-up Additional signs and symptoms?: LEFT HEART CATH POSSIBLE PTC A/STENTon 01-10-2021 LEFT HEART CATH POSSIBLE PTCA/STENT Patient Name: ERIBERTO RICO Date of : 1945 Procedure Date: 01/10/2021 Cath #: [id number] Physician(s): Eladio Ingram MD Ref. Physician: PROCEDURE(S) PERFORMED: Clinical History: Prior smoker, quit date: Diabetes Mellitus: Yes Hypertension: Yes Dyslipidemia: Yes Prior NH: Yes Other: Stroke Prior PCI: Yes 2016 [...] right femoral artery - 6F. 10 cm [place] Catheters were advanced using standard guide wire [...] Equipment: Sheath(s) VASCULAR SOLUTIONS 4F MICROPUNCTURE KIT Ocutronics 6F 10CM [place] SHEATH Wire(s) Qnary INC J WIRE FIXED MERIT .035 X 150CM GUIDEWIRE Catheter(s) Cover JR4 DIAG CATH 6F Cover JR4 DIAG CATH 6F Cover PIGTAIL STRAIGHT DIAG CATH 6F See Nursing Notes for further details Signed By Eladio Ingram MD On 01/10/2021 11:05:05 Eladio Ingram MD _ _ [facility] ECHOCARDIOGRAM 2D COMPLETEOr dered By: Eladio Ingram on 10-15-2020 Aortic valve area 2.60072 cm [facility] [place] AV mean gradient 6 mmHg [facility] EF 62.7797 % [facility] Patient Info Name: Morro RICO Age: 75 years : 1945 Gender: Male Ht: 175 cm Wt: 106 kg BSA: 2.31 m2 HR: 50 bpm BP: 134 / 72 mmHg Heart Rhythm: Bradycardia, Sinus Rhythm Technical Quality: Fair, Technically difficult Exam Date: 10/15/2020 12:57 PM Patient Status: Outpatient Shoe Ironer: Tracy Bonilla, RDCS, RVT Exam Type: ECHOCARDIOGRAM COMPLETE W CONTRAST Study Info Indications - Dyspnea Attending Physician: ELADIO INGRAM Referring Physician: ELADIO INGRAM ; [phone] BMI: 34.56 kg/m2 Summary 1. Left ventricular systolic function is normal, with ejection fraction estimated at 60 +/- 5%. 2. The left ventricular diastolic function is normal. 3. 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 4. There is no aortic valve stenosis. History/Risk Factors Hypertension: Yes Dyslipidemia: Yes Diabetic Therapy: Oral Peripheral Arterial Disease (PAD): Yes Myocardial Infarction (NH): Yes Coronary Artery Disease (CAD) Yes Congestive Heart Failure (CHF): Hx CHF Date of Prior NH: 05/03/2008 Diabetes Mellitus: Yes History/Risk Factors sleep [...] Velocity 1.09 m/s (more content not included)... [facility] Interface, Rad In artlab Xper Echopacs - 10/15/2020 4:30 PM EDT Patient Info Name: ERIBERTO RICO Age: 75 years : 1945 Gender: Male Ht: 175 cm Wt: 106 kg BSA: 2.31 m2 HR: 50 bpm BP: 134 / 72 mmHg Heart Rhythm: Bradycardia, Sinus Rhythm Technical Quality: Fair, Technically difficult Exam Date: 10/15/2020 12:57 PM Patient Status: Outpatient Shoe Ironer: Tracy Bonilla, RDCS, RVT Exam Type: ECHOCARDIOGRAM COMPLETE W CONTRAST Study Info Indications - Dyspnea Attending Physician: ELADIO INGRAM Referring Physician: ELADIO INGRAM ; [id number] BMI: 34.56 kg/m2 Summary 1. Left ventricular systolic function is normal, with ejection fraction estimated at 60 +/- 5%. 2. The left ventricular diastolic function is normal. 3. 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 4. There is no aortic valve stenosis. History/Risk Factors Hypertension: Yes Dyslipidemia: Yes Diabetic Therapy: Oral Peripheral Arterial Disease (PAD): Yes Myocardial Infarction (NH): Yes Coronary Artery Disease (CAD) Yes Congestive Heart Failure (CHF): Hx CHF Date of Prior NH: 05/03/2008 Diabetes Mellitus: Yes History/Risk Factors sleep [...] mmHg MV VTI 46 cm MV [place] 333 cm/s2 MV PHT 38 ms MV Area (PHT) 5.8 cm2 4.0-5.0 MV Area (Cont Eq VTI) 2.5 cm2 MV Area Index (Cont Eq VTI) 1.06 cm2/m2 MV Di (more content not included)... [facility] ECHOCARDIOGRAM COMPLETE W CO NTRASTon 10-15-2020 ECHOCARDIOGRAM COMPLETE W CONTRAST Patient Info Name: ERIBERTO RICO Age: 75 years : 1945 Gender: Male Ht: 175 cm Wt: 106 kg BSA: 2.31 m2 HR: 50 bpm BP: 134 / 72 mmHg Heart Rhythm: Bradycardia, Sinus Rhythm Technical Quality: Fair, Technically difficult Exam Date: 10/15/2020 12:57 PM Patient Status: Outpatient Shoe Ironer: Tracy Bonilla, DRU, RVT Exam Type: ECHOCARDIOGRAM COMPLETE W CONTRAST Study Info Indications - Dyspnea Attending Physician: ELADIO INGRAM Referring Physician: ELADIO INGRAM ; [id number] BMI: 34.56 kg/m2 Summary 1. Left ventricular systolic function is normal, with ejection fraction estimated at 60 +/- 5%. 2. The left ventricular diastolic function is normal. 3. 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 4. There is no aortic valve stenosis. History/Risk Factors Hypertension: Yes Dyslipidemia: Yes Diabetic Therapy: Oral Peripheral Arterial Disease (PAD): Yes Myocardial Infarction (NH): Yes Coronary Artery Disease (CAD) Yes Congestive Heart Failure (CHF): Hx CHF Date of Prior NH: 05/03/2008 Diabetes Mellitus: Yes History/Risk Factors sleep [...] mmHg MV VTI 46 cm MV [place] 333 cm/s2 MV PHT 38 ms MV Area (PHT) 5.8 cm2 4.0-5.0 MV Area (Cont Eq VTI) 2.5 cm2 MV Area Index (Cont Eq VTI) 1.06 cm2/m2 MV Diastolic Function MV E Peak Velocity 1 m/s MV A Peak Velocity 1 m/s MV E/A 1.2 MV (more content not included)... Normal [facility] Ambulatory ECG 12-LEADOrdered By: Fernanda Acuña on 10-09-2020 Atrial Rate [facility] P [place] [facility] P-R Interval [facility] Q-T Interval [facility] Q-T Interval (corrected) [facility] QRS Duration [facility] QTC Calculation (Bezet) [facility] R [place] [facility] T [place] [facility] Ventricular Rate [facility] Auto Diffon 09-15-2018 Basophils #/vol (Bld) 0.0 E3/mcL Normal 0.0-0.2 [facility] Comment on above: Order Comment: Order Added by Discern Expert. Performed By: #### 2 [id number] #### [employer] [address] [place] [address] Basophils/100 WBC (Bld) 0.6 % Normal 0.0-2.0 [facility] Comment on above: Order Comment: Order Added by Discern Expert. Performed By: #### 2 [id number] #### [employer] [address] [place] [address] 73779 Eos Absolute 0.1 E3/mcL Normal 0.0-0.7 [facility] Comment on above: Order Comment: Order Added by Discern Expert. Performed By: #### 2 [id number] #### [employer] [address] [place] [address] 00252 Eosinophils/100 WBC (Bld) 2.2 % Normal 0.0-11.0 [facility] Comment on above: Order Comment: Order Added by Discern Expert. Performed By: #### 2 [id number] #### [employer] [address] [place] [address] 70695 Lymphocytes #/vol (Bld) 1.9 E3/mcL Normal 1.2-3.4 [facility] Comment on above: Order Comment: Order Added by Kiana Expert. Performed By: #### 2 [id number] #### [employer] [address] [place] [address] 62014 Lymphocytes/100 WBC (Bld) 31.0 % Normal 20.0-55.0 [facility] Comment on above: Order Comment: Order Added by Kiana Expert. Performed By: #### 2 [id number] #### [employer] [address] [place] [address] [place] Absolute 0.8 E3/mcL High 0.0-0.7 [facility] Comment on above: Order Comment: Order Added by Discern Expert. Performed By: #### 2 [id number] #### [employer] [address] [place] [address] 66362 Monocytes/100 WBC (Bld) 13.2 % High 0.0-10.0 [facility] Comment on above: Order Comment: Order Added by Discern Expert. Performed By: #### 2 [id number] #### [employer] [address] [place] [address] 27461 Neutro Absolute 3.3 E3/mcL Normal 1.4-6.5 [facility] Comment on above: Order Comment: Order Added by Discern Expert. Performed By: #### 2 580285 #### [employer] [address] [place] [address] Neutro Auto 53.0 % Normal 37.0-75.0 [facility] Comment on above: Order Comment: Order Added by Discern Expert. Performed By: #### 2 [id number] #### [employer] [address] [place] [address] BMPon 09-15-2018 Anion gap molar conc 10 mmol/L Normal 10-20 [facility] Comment on above: Performed By: #### 2 [id number] #### [employer] [address] [place] [address] Calcium mass conc 8.4 mg/dL Low 8.6-10.3 [facility] Comment on above: Performed By: #### 2 740720 #### [employer] [address] [place] [address] Chloride molar conc 105 mmol/L Normal 98-107 [facility] Comment on above: Performed By: #### 2 [id number] #### [employer] [address] [place] [address] 19893 CO2 molar conc 26.0 mmol/L Normal 21.0-32.0 [facility] Comment on above: Performed By: #### 2 661821 #### [employer] [address] [place] [address] Creatinine mass conc 1.1 mg/dL Normal 0.5-1.3 [facility] Comment on above: Performed By: #### 2 [id number] #### [employer] [address] [place] [address] Glucose mass conc 136 mg/dL High 70-99 [facility] Comment on above: Performed By: #### 2 [id number] #### [employer] [address] [place] [address] Potassium molar conc 4.1 mmol/L Normal 3.5-5.3 [facility] Comment on above: Performed By: #### 2 029109 #### [employer] [address] [place] [address] Sodium molar conc 137 mmol/L Normal 136-145 [facility] Comment on above: Performed By: #### 2 603163 #### [employer] [address] [place] [address] Urea nitrogen mass conc 19 mg/dL Normal 6-23 [facility] Comment on above: Performed By: #### 2 684686 #### [employer] [facility] [place] [address] Urea nitrogen/Creatinine mass ratio 17.3 ratio Normal 5.4-30.0 [facility] Comment on above: Performed By: #### 2 [id number] #### [employer] [address] [place] [address] 42386 CBC w/ Auto Diffon 9 Erythrocyte distribution width Ratio (RBC) 14.9 % High 11.5-14.5 [facility] Comment on above: Performed By: #### 2 035686 #### [employer] [address] [place] [address] Hematocrit Volume Fraction (Bld) 41.5 % Low 42.0-52.0 [facility] Comment on above: Performed By: #### 2 039482 #### [employer] [address] [place] [address] Hemoglobin mass conc (Bld) 13.6 g/dL Normal 13.5-18.0 [facility] Comment on above: Performed By: #### 2 750846 #### [employer] [address] [place] [address] 35140 MCH Entitic mass (RBC) 29.6 pg Normal 27.0-31.0 [facility] Comment on above: Performed By: #### 2 298460 #### [employer] [address] [place] [address] 19341 MCHC mass conc (RBC) 32.8 g/dL Low 33.0-37.0 [facility] Comment on above: Performed By: #### 2 544192 #### [employer] [address] [place] [address] 23111 MCV Entitic volume (RBC) 90.4 fL Normal 78.0-100.0 [facility] Comment on above: Performed By: #### 2 [id number] #### [employer] [address] [place] [address] Platelet mean volume Entitic volume (Bld) 10.8 fL Normal 7.4-11.0 [facility] Comment on above: Performed By: #### 2 641213 #### [employer] [address] [place] [address] Platelets #/vol (Bld) 137 E3/mcL Normal 130-400 [facility] Comment on above: Performed By: #### 2 167055 #### [employer] [address] [place] [address] RBC #/vol (Bld) 4.59 E6/mcL Normal 3.90-6.10 [facility] Comment on above: Performed By: #### 2 069589 #### [employer] [address] [place] [address] WBC #/vol (Bld) 6.2 E3/mcL Normal 3.6-11.0 [facility] Comment on above: Performed By: #### 2 265222 #### [employer] [address] [place] [address] Glucose POCon 09-15-2018 Glucose mass conc 163 mg/dL High 70-99 [facility] Comment on above: Performed By: #### 2 623693 #### [employer] [address] [place] [address] Glucose mass conc 99 mg/dL Normal 70-99 [facility] Comment on above: Performed By: #### 2 359435 #### [employer] [address] [place] [address] Troponin-Ion 09-15-2018 Troponin I.cardiac mass conc 0.01 ng/mL Normal 0.00-0.03 [facility] Comment on above: Performed By: #### 2 898395 #### [employer] [address] [place] [address] eGFRon 09-15-2018 GFR/1.73 sq M predicted among non-blacks MDRD vol rate/area (S/P/Bld) mL/min/{1.73_m2} Normal [facility] Comment on above: Order Comment: Order added by Discern Expert. Performed By: #### 2 793265 #### [employer] [address] [place] [address] Auto Diffon 09-14-2018 Basophils #/vol (Bld) 0.0 E3/mcL Normal 0.0-0.2 [facility] Comment on above: Order Comment: Order Added by Discern Expert. Performed By: #### 2 419118 #### [employer] [address] [place] [address] Basophils/100 WBC (Bld) 0.6 % Normal 0.0-2.0 [facility] Comment on above: Order Comment: Order Added by Discern Expert. Performed By: #### 2 258841 #### [employer] [address] [place] [address] 91033 Eos Absolute 0.1 E3/mcL Normal 0.0-0.7 [facility] Comment on above: Order Comment: Order Added by Discern Expert. Performed By: #### 2 527029 #### [employer] [address] [place] [address] 33171 Eosinophils/100 WBC (Bld) 1.7 % Normal 0.0-11.0 [facility] Comment on above: Order Comment: Order Added by Discern Expert. Performed By: #### 2 711893 #### [employer] [address] [place] [address] 15624 Lymphocytes #/vol (Bld) 1.2 E3/mcL Normal 1.2-3.4 [facility] Comment on above: Order Comment: Order Added by Discern Expert. Performed By: #### 2 469753 #### [employer] [address] [place] [address] 18282 Lymphocytes/100 WBC (Bld) 16.5 % Low 20.0-55.0 [facility] Comment on above: Order Comment: Order Added by Discern Expert. Performed By: #### 2 953349 #### [employer] [address] [place] [address] [place] Absolute 0.8 E3/mcL High 0.0-0.7 [facility] Comment on above: Order Comment: Order Added by Discern Expert. Performed By: #### 2 729667 #### [employer] [address] [place] [address] Monocytes/100 WBC (Bld) 11.1 % High 0.0-10.0 [facility] Comment on above: Order Comment: Order Added by Discern Expert. Performed By: #### 2 766882 #### [employer] [address] [place] [address] Neutro Absolute 5.1 E3/mcL Normal 1.4-6.5 [facility] Comment on above: Order Comment: Order Added by Discern Expert. Performed By: #### 2 802646 #### [employer] [address] [place] [id number] Neutro Auto 70.1 % Normal 37.0-75.0 [facility] Comment on above: Order Comment: Order Added by Discern Expert. Performed By: #### 2 584922 #### [employer] [address] [place] [address] BMPon 09-14-2018 Anion gap molar conc 13 mmol/L Normal 10-20 [facility] Comment on above: Performed By: #### 2 171597 #### [employer] [address] [place] [address] Calcium mass conc 9.2 mg/dL Normal 8.6-10.3 [facility] Comment on above: Performed By: #### 2 279140 #### [employer] [address] [place] [address] 38322 Chloride molar conc 105 mmol/L Normal 98-107 [facility] Comment on above: Performed By: #### 2 036614 #### [employer] [address] [place] [address] 88745 CO2 molar conc 24.0 mmol/L Normal 21.0-32.0 [facility] Comment on above: Performed By: #### 2 491949 #### [employer] [address] [place] [address] 40610 Creatinine mass conc 1.2 mg/dL Normal 0.5-1.3 [facility] Comment on above: Performed By: #### 2 294428 #### [employer] [address] [place], [place] [address] Glucose mass conc 129 mg/dL High 70-99 [facility] Comment on above: Performed By: #### 2 475305 #### [employer] [address] [place] [address] Potassium molar conc 3.9 mmol/L Normal 3.5-5.3 [facility] Comment on above: Performed By: #### 2 422582 #### [employer] [address] [place] [address] 97639 Sodium molar conc 138 mmol/L Normal 136-145 [facility] Comment on above: Performed By: #### 2 575697 #### [employer] [address] [place] [address] 70384 Urea nitrogen mass conc 19 mg/dL Normal 6-23 [facility] Comment on above: Performed By: #### 2 678020 #### [employer] [address] [place], [place] [address] Urea nitrogen/Creatinine mass ratio 15.8 ratio Normal 5.4-30.0 [facility] Comment on above: Performed By: #### 2 318210 #### [employer] [address] [place], [place] [address] CBC w/ Auto Diffon 9 Erythrocyte distribution width Ratio (RBC) 15.2 % High 11.5-14.5 [facility] Comment on above: Performed By: #### 2 744358 #### [employer] [address] [place] [address] 58859 Hematocrit Volume Fraction (Bld) 45.0 % Normal 42.0-52.0 [facility] Comment on above: Performed By: #### 2 582796 #### [employer] [address] [place] [address] 60582 Hemoglobin mass conc (Bld) 15.0 g/dL Normal 13.5-18.0 [facility] Comment on above: Performed By: #### 2 076428 #### [employer] [address] [place] [address] 94703 MCH Entitic mass (RBC) 29.8 pg Normal 27.0-31.0 [facility] Comment on above: Performed By: #### 2 295535 #### [employer] [address] [place] [address] 74008 MCHC mass conc (RBC) 33.4 g/dL Normal 33.0-37.0 [facility] Comment on above: Performed By: #### 2 210144 #### [employer] [facility] [place] [address] MCV Entitic volume (RBC) 89.4 fL Normal 78.0-100.0 [facility] Comment on above: Performed By: #### 2 698562 #### [employer] [facility] [place] [address]163[address] Platelet mean volume Entitic volume (Bld) 10.8 fL Normal 7.4-11.0 [facility] Comment on above: Performed By: #### 2 356387 #### [employer]MOKira FregosoH[employer] [facility] [place] [address] Platelets #/vol (Bld) 158 E3/mcL Normal 130-400 [facility] Comment on above: Performed By: #### 2 587661 #### [employer] [facility] [place] [address]163205 RBC #/vol (Bld) 5.04 E6/mcL Normal 3.90-6.10 [facility] Comment on above: Performed By: #### 2 112244 #### [employer] [facility] [place] [address]163[address] WBC #/vol (Bld) 7.2 E3/mcL Normal 3.6-11.0 [facility] Comment on above: Performed By: #### 2 915519 #### [employer] [address] [place], [place] [address] CT Head or Brain w/o Contras ton 09-14-2018 CT Head or Brain w/o Contrast Exam Date/Time: 09/14/2018 15:21 EDT Reason for Exam: Injury Report STUDY: CT Head or Brain w/o Contrast; 09/14/2018 3:21 pm INDICATION: Injury. COMPARISON: 11/28/2016 ACCESSION NUMBER(S): [id number] ORDERING CLINICIAN: Kirsty Nguyen TECHNIQUE: Volume acquisition [...] by: Radha Olivarez MD Technologist: IZAIAH Normal [facility] CT Spine Cervical w/o Contra ston 09-14-2018 CT Spine Cervical w/o Contrast Exam Date/Time: 09/14/2018 15:22 EDT Reason for Exam: Trauma Report STUDY: CT Spine Cervical w/o Contrast; 09/14/2018 3:22 pm INDICATION: Trauma. COMPARISON: None. ACCESSION NUMBER(S): [id number] ORDERING CLINICIAN: Kirsty Nguyen TECHNIQUE: Axial CT [...] by: Radha Olivarez MD Technologist: IZAIAH Normal [facility] Glucose POCon 09-14-2018 Glucose mass conc 132 mg/dL High 70-99 [facility] Comment on above: Performed By: #### 2 [id number] #### [employer] [facility] [place] [address] [id number] 09-14-2018 Hemoglobin A1c/Hemoglobin.total mass fraction (Bld) 6.9 % High 4.0-6.3 [facility] Comment on above: Performed By: #### 2 [id number] #### [employer] [facility] [place] [id number] Magnesiumon 09-14-2018 Magnesium mass conc 2.0 Int._Unit/L Normal 1.6-2.4 [facility] Comment on above: Performed By: #### 2 083741 #### [employer] [address] [place], [place] [address] PTon 09-14-2018 INR Coag RelTime (PPP) 1.0 {INR} Normal 0.9-1.1 [facility] Comment on above: Result Comment: INR Recommended Therapeutic ranges: Prophylaxis/treatment of DVT and PE..........2.0-3.0 Prevention of systemic embolism.................2.0-3.0 Mechanical prosthetic values........................2.5-3.5 CRITICAL VALUE.........................................> 4.0 NOTE: New methodology started 05/16/2018 Performed By: #### 2 [id number] #### [employer] [facility] [place] [address] Prothrombin time (PT) Coag time (PPP) 11.8 second(s) Normal 9.7-12.7 [facility] Comment on above: Result Comment: NOTE : New reference range established on 05/16/2018 due to change in methodology. Performed By: #### 2 768772 #### [employer] [address] [place], [place] [address] PTTon 09-14-2018 aPTT Coag time (Bld) 32 second(s) Normal 28-38 [facility] Comment on above: Result Comment: NOTE :New reference range established 05/16/2018 due to change in methodology. Performed By: #### 2 [id number] #### [employer] [address] [place] [address] TSHon 09-14-2018 Thyrotropin Qn 5.25 mcIU/mL Normal 0.30-5.60 [facility] Comment on above: Performed By: #### 2 163935 #### [employer] [facility] [place] [address] Troponin-Ion 09-14-2018 Troponin I.cardiac mass conc 0.02 ng/mL Normal 0.00-0.03 [facility] Comment on above: Performed By: #### 2 689461 #### [employer] [address] [place] [address] UA Completeon 09-14-2018 Color Nom (U) Straw Normal Yellow [facility] Comment on above: Performed By: #### 2 188943 #### [employer] [address] [place] [address] Glucose mass conc (U) Negative Normal Negative [facility] Comment on above: Performed By: #### 2 185782 #### [employer] [address] [place] [address] Ketones Ql (U) Negative Normal Negative [facility] Comment on above: Performed By: #### 2 607082 #### [employer] [address] [place] [address] UA Blood Negative Normal Negative [facility] Comment on above: Performed By: #### 2 561492 #### [employer] [address] [place] [id number] UA Clarity Clear Normal Clear [facility] Comment on above: Performed By: #### 2 476469 #### [employer] [address] [place] [address] UA Hyal Cast 3-5 Abnormal 0-2 [facility] Comment on above: Performed By: #### 2 667893 #### [employer] [address] [place] [address] UA Leuk Est Negative Normal Negative [facility] Comment on above: Performed By: #### 2 693916 #### [employer] [address] [place] [address] UA Mucous Trace Abnormal Trace [facility] Comment on above: Performed By: #### 2 439001 #### [employer] [address] [place] [address] UA Nitrite Negative Normal Negative [facility] Comment on above: Performed By: #### 2 124144 #### [employer] [facility] [address] [id number] UA pH 5.0 Normal 4.6-8.0 [facility] Comment on above: Performed By: #### [id number] #### [employer] [facility] [address] [id number] UA Protein Negative Normal Negative [facility] Comment on above: Performed By: #### 2 [id number] #### [employer] [facility] [address] [id number] UA Spec Grav 1.009 Normal 1.003-1.03 0 [facility] Comment on above: Performed By: #### 2 [id number] #### [employer] [facility] [address] [id number] UA Urobilinogen Negative Normal [facility] Comment on above: Result Comment: Due to a manufacturing issue, low positive urobilinogen results may be fasely positive. Correlate with urine bilirubin and additional clinical/laboratory findings to assess the risk of hemolytic anemia or liver disease. If clinically indicated, repeat testing with an alternate method is available by contacting the laboratory within 24 hours. Performed By: #### 2 [id number] #### [employer] [facility] [address] [id number] Urobilinogen Qn (U) Negative Normal Negative [facility] Comment on above: Performed By: #### [id number] #### [facility] [address] [address] [place] [address] XR Chest AP Portableon 09-14 XR Chest AP Portable Exam Date/Time: 09/14/2018 15:43 EDT Reason for Exam: Chest pain Report STUDY: XR Chest AP Portable; 09/14/2018 3:43 pm INDICATION: Chest pain. COMPARISON: 12/25/2016 ACCESSION NUMBER(S): [id number] ORDERING CLINICIAN: Kirsty Nguyen FINDINGS: CARDIOMEDIASTINAL SILHOUETTE: [...] pm Signed by: Iva Vargas MD Technologist: [facility] XR Humerus Lefton 09-14-2018 XR Humerus Left Exam Date/Time: 09/14/2018 15:43 EDT Reason for Exam: Pain, Traumatic Report STUDY: XR Humerus Left; XR Shoulder Complete Left;; 09/14/2018 3:43 pm INDICATION: Pain, Traumatic. COMPARISON: None. ACCESSION NUMBER(S): [id number]; [id number] ORDERING CLINICIAN: Kirsty Nguyen FINDINGS: Five views [...] pm Signed by: Iva Vargas MD Technologist: [facility] XR Knee Complete Righton XR Knee Complete Right Exam Date/Time: 09/14/2018 15:43 EDT Reason for Exam: Pain, Traumatic Report STUDY: XR Knee Complete Right;; 09/14/2018 3:43 pm INDICATION: Pain, Traumatic. COMPARISON: None. ACCESSION NUMBER(S): [id number] ORDERING CLINICIAN: Kirsty Nguyen FINDINGS: Four views right knee: There is no fracture, dislocation or joint effusion. There is swelling anterior to the patella and infrapatellar tendon. IMPRESSION: No acute bony abnormality right knee, soft tissue swelling. FINAL REPORT Dictated: 09/14/2018 4:19 pm Iva Vargas MD Signed (Electronic Signature): 09/14/2018 4:19 pm Signed by: Iva Vargas MD Technologist: [facility] XR Shoulder Complete Lefton 09-14-2018 XR Shoulder Complete Left Exam Date/Time: 09/14/2018 15:43 EDT Reason for Exam: Pain, Traumatic Report STUDY: XR Humerus Left; XR Shoulder Complete Left;; 09/14/2018 3:43 pm INDICATION: Pain, Traumatic. COMPARISON: None. ACCESSION NUMBER(S): [id number]; [id number] ORDERING CLINICIAN: Kirsty Nguyen FINDINGS: Five views [...] pm Signed by: Iva Vargas MD Technologist: [facility] eGFRon 09-14-2018 GFR/1.73 sq M predicted among non-blacks MDRD vol rate/area (S/P/Bld) mL/min/{1.73_m2} [facility] Comment on above: Order Comment: Order added by Discern Expert. Performed By: #### 1 [id number] #### [employer] [facility] [address] [place] [id number] Vital Signs Date Time Vital Sign Value Performing Clinician Facility 12-26-2024 14:39-0400 Body temperature 98.7 [degF] Dr. Marycarmen Rodriguez DO Work Phone: [facility] 12-26-2024 14:39-0400 Diastolic blood pressure 68 mm[Hg] Dr. Marycarmen Rodriguez DO Work Phone: [facility] 12-26-2024 14:39-0400 Heart rate 88 /min Dr. Marycarmen Rodriguez DO Work Phone: [facility] 12-26-2024 14:39-0400 Respiratory rate 18 /min Dr. Marycarmen Rodriguez DO Work Phone: [facility] 12-26-2024 14:39-0400 SaO2% (BldA) [Mass fraction] 95 % Dr. Marycarmen Rodriguez DO Work Phone: [facility] 12-26-2024 14:39-0400 Systolic blood pressure 104 mm[Hg] Dr. Marycarmen Rodriguez DO Work Phone: [facility] 12-26-2024 07:42-0400 Inhaled oxygen concentration 21 % Dr. Marycarmen Rodriguez DO Work Phone: [facility] 12-26-2024 04:00-0400 Body mass index (BMI) [Ratio] 32 kg/m2 Dr. Marycarmen Rodriguez DO Work Phone: [facility] 12-26-2024 04:00-0400 Body weight 98.[address] Marycarmen Rodriguez DO Work Phone: [facility] 12-25-2024 11:30-0400 Body height 175.[address] Marycarmen Rodriguez DO Work Phone: [facility] 12-20-2024 14:00-0400 Diastolic blood pressure 65 mm[Hg] Dr. Marycarmen Rodriguez DO Work Phone: [facility] 12-20-2024 14:00-0400 Heart rate 63 /min Dr. Marycarmen Rodriguez DO Work Phone: [facility] 12-20-2024 14:00-0400 Respiratory rate 20 /min Dr. Marycarmen Rodriguez DO Work Phone: [facility] 12-20-2024 14:00-0400 SaO2% (BldA) [Mass fraction] 96 % Dr. Marycarmen Rodriguez DO Work Phone: [facility] 12-20-2024 14:00-0400 Systolic blood pressure 103 mm[Hg] Dr. Marycarmen Rodriguez DO Work Phone: [facility] 12-20-2024 13:15-0400 Body temperature 97.7 [degF] Dr. Marycarmen Rodriguez DO Work Phone: [facility] 12-20-2024 11:46-0400 Body mass index (BMI) [Ratio] 31.8 kg/m2 Dr. Marycarmen Rodriguez DO Work Phone: [facility] 12-20-2024 11:46-0400 Body weight 97.[address] Marycarmen Rodriguez DO Work Phone: [facility] 12-17-2024 15:10-0400 Body temperature 97.9 [degF] Dr. Marycarmen Rodriguez DO Work Phone: [facility] 12-17-2024 15:10-0400 Diastolic blood pressure 82 mm[Hg] Dr. Marycarmen Rodriguez DO Work Phone: [facility] 12-17-2024 15:10-0400 Heart rate 78 /min Dr. Marycarmen Rodriguez DO Work Phone: [facility] 12-17-2024 15:10-0400 Respiratory rate 18 /min Dr. Marycarmen Rodriguez DO Work Phone: [facility] 12-17-2024 15:10-0400 SaO2% (BldA) [Mass fraction] 99 % Dr. Marycarmen Rodriguez DO Work Phone: [facility] 12-17-2024 15:10-0400 Systolic blood pressure 100 mm[Hg] Dr. Marycarmen Rodriguez DO Work Phone: [facility] 12-17-2024 05:06-0400 Body mass index (BMI) [Ratio] 31.3 kg/m2 Dr. Marycarmen Rodriguez DO Work Phone: [facility] 12-17-2024 05:06-0400 Body weight 96.[address] Marycarmen Rodriguez DO Work Phone: [facility] 12-17-2024 02:53-0400 Inhaled oxygen concentration 21 % Dr. Marycarmen Rodriguez DO Work Phone: [facility] 12-16-2024 11:59-0400 Body height 175.[address] Marycarmen Rodriguez DO Work Phone: [facility] 12-12-2024 10:23-0400 Body height 175.[address] Marycarmen Rodriguez DO Work Phone: [facility] 12-12-2024 10:23-0400 Body mass index (BMI) [Ratio] 31.7 kg/m2 Dr. Marycarmen Rodriguez DO Work Phone: [facility] 12-12-2024 10:23-0400 Body weight 97.[address] Marycarmen Rodriguez DO Work Phone: [facility] 12-12-2024 10:23-0400 Diastolic blood pressure 74 mm[Hg] Dr. Marycarmen Rodriguez DO Work Phone: [facility] 12-12-2024 10:23-0400 Heart rate 75 /min Dr. Marycarmen Rodriguez DO Work Phone: [facility] 12-12-2024 10:23-0400 Respiratory rate 16 /min Dr. Marycarmen Rodriguez DO Work Phone: [facility] 12-12-2024 10:23-0400 Systolic blood pressure 106 mm[Hg] Dr. Marycarmen Rodriguez DO Work Phone: [facility] 12-08-2024 12:30-0400 Body temperature 97.7 [degF] Dr. Marycarmen Rodriguez DO Work Phone: [facility] 12-08-2024 12:30-0400 Diastolic blood pressure 81 mm[Hg] Dr. Marycarmen Rodriguez DO Work Phone: [facility] 12-08-2024 12:30-0400 Heart rate 72 /min Dr. Marycarmen Rodriguez DO Work Phone: [facility] 12-08-2024 12:30-0400 Respiratory rate 18 /min Dr. Marycarmen Rodriguez DO Work Phone: [facility] 12-08-2024 12:30-0400 SaO2% (BldA) [Mass fraction] 96 % Dr. Marycarmen Rodriguez DO Work Phone: [facility] 12-08-2024 12:30-0400 Systolic blood pressure 121 mm[Hg] Dr. Marycarmen Rodriguez DO Work Phone: [facility] 12-08-2024 01:20-0400 Inhaled oxygen concentration 21 % Dr. Marycarmen Rodriguez DO Work Phone: [facility] 12-07-2024 17:24-0400 Body height 175.[address] Marycarmen Rodriguez DO Work Phone: [facility] 12-07-2024 17:24-0400 Body mass index (BMI) [Ratio] 32.1 kg/m2 Dr. Marycarmen Rodriguez DO Work Phone: [facility] 12-07-2024 17:24-0400 Body weight 98.[address] Marycarmen Rodriguez DO Work Phone: [facility] 12-07-2024 16:00-0400 SaO2% (BldA) [Mass fraction] 97 % Dr. Marycarmen Rodriguez DO Work Phone: [facility] 12-07-2024 15:13-0400 Body temperature 98.2 [degF] Dr. Marycarmen Rodriguez DO Work Phone: [facility] 12-07-2024 15:13-0400 Diastolic blood pressure 61 mm[Hg] Dr. Marycarmen Rodriguez DO Work Phone: [facility] 12-07-2024 15:13-0400 Heart rate 22 /min Dr. Marycarmen Rodriguez DO Work Phone: [facility] 12-07-2024 15:13-0400 Respiratory rate 22 /min Dr. Marycarmen Rodriguez DO Work Phone: [facility] 12-07-2024 15:13-0400 Systolic blood pressure 114 mm[Hg] Dr. Marycarmen Rodriguez DO Work Phone: [facility] 12-07-2024 11:05-0400 Inhaled oxygen flow rate 2 L/min Dr. Marycarmen Rodriguez DO Work Phone: [facility] 12-07-2024 10:52-0400 Body height 175.[address] Marycarmen Rodriguez DO Work Phone: [facility] 12-07-2024 10:52-0400 Body mass index (BMI) [Ratio] 33.4 kg/m2 Dr. Marycarmen Rodriguez DO Work Phone: [facility] 12-07-2024 10:52-0400 Body weight 102.[address] Marycarmen Rodriguez DO Work Phone: [facility] 12-06-2024 12:45-0400 Body temperature 98 [degF] Dr. Marycarmen Rodriguez DO Work Phone: [facility] 12-06-2024 12:45-0400 Diastolic blood pressure 86 mm[Hg] Dr. Marycarmen Rodriguez DO Work Phone: [facility] 12-06-2024 12:45-0400 Heart rate 84 /min Dr. Marycarmen Rodriguez DO Work Phone: [facility] 12-06-2024 12:45-0400 Respiratory rate 14 /min Dr. Marycarmen Rodriguez DO Work Phone: [facility] 12-06-2024 12:45-0400 SaO2% (BldA) [Mass fraction] 99 % Dr. Marycarmen Rodriguez DO Work Phone: [facility] 12-06-2024 12:45-0400 Systolic blood pressure 126 mm[Hg] Dr. Marycarmen Rodriguez DO Work Phone: [facility] 12-06-2024 06:00-0400 Body mass index (BMI) [Ratio] 33 kg/m2 Dr. Marycarmen Rodriguez DO Work Phone: [facility] 12-06-2024 06:00-0400 Body weight 101.[address] Marycarmen Rodriguez DO Work Phone: [facility] 12-06-2024 00:25-0400 Inhaled oxygen concentration 21 % Dr. Marycarmen Rodriguez DO Work Phone: [facility] 12-05-2024 08:28-0400 Heart rate 70 /min Dr. Marycarmen Rodriguez DO Work Phone: [facility] 12-05-2024 08:06-0400 Body temperature 97.6 [degF] Dr. Marycarmen Rodriguez DO Work Phone: [facility] 12-05-2024 08:06-0400 Diastolic blood pressure 80 mm[Hg] Dr. Marycarmen Rodriguez DO Work Phone: [facility] 12-05-2024 08:06-0400 Respiratory rate 18 /min Dr. Marycarmen Rodriguez DO Work Phone: [facility] 12-05-2024 08:06-0400 SaO2% (BldA) [Mass fraction] 100 % Dr. Marycarmen Rodriguez DO Work Phone: [facility] 12-05-2024 08:06-0400 Systolic blood pressure 123 mm[Hg] Dr. Marycarmen Rodriguez DO Work Phone: [facility] 12-05-2024 05:20-0400 Body mass index (BMI) [Ratio] 33.1 kg/m2 Dr. Marycarmen Rodriguez DO Work Phone: [facility] 12-05-2024 05:20-0400 Body weight 101.[address] Marycarmen Rodriguez DO Work Phone: [facility] 12-04-2024 22:55-0400 Inhaled oxygen concentration 21 % Dr. Marycarmen Rodriguez DO Work Phone: [facility] 12-04-2024 08:07-0400 Inhaled oxygen flow rate 2 L/min Dr. Marycarmen Rodriguez DO Work Phone: [facility] 12-02-2024 21:54-0400 Body height 175.[address] Marycarmen Rodriguez DO Work Phone: [facility] 12-02-2024 20:56-0400 Body temperature 98.8 [degF] Dr. Marycarmen Rodriguez DO Work Phone: [facility] 12-02-2024 20:56-0400 Diastolic blood pressure 78 mm[Hg] Dr. Marycarmen Rodriguez DO Work Phone: [facility] 12-02-2024 20:56-0400 Heart rate 77 /min Dr. Marycarmen Rodriguez DO Work Phone: [facility] 12-02-2024 20:56-0400 Respiratory rate 21 /min Dr. Marycarmen Rodriguez DO Work Phone: [facility] 12-02-2024 20:56-0400 SaO2% (BldA) [Mass fraction] 96 % Dr. Marycarmen Rodriguez DO Work Phone: [facility] 12-02-2024 20:56-0400 Systolic blood pressure 114 mm[Hg] Dr. Marycarmen Rodriguez DO Work Phone: [facility] 12-02-2024 20:21-0400 Inhaled oxygen flow rate 3 L/min Dr. Marycarmen Rodriguez DO Work Phone: [facility] 12-02-2024 20:16-0400 Body height 175.[address] Marycarmen Rodriguez DO Work Phone: [facility] 12-02-2024 20:16-0400 Body mass index (BMI) [Ratio] 35.9 kg/m2 Dr. Marycarmen Rodriguez DO Work Phone: [facility] 12-02-2024 20:16-0400 Body weight 110.[address] Marycarmen Rodriguez DO Work Phone: [facility] 12-02-2024 14:08-0400 Body temperature 98.8 [degF] Dr. Marycarmen Rodriguez DO Work Phone: [facility] 12-02-2024 14:08-0400 Diastolic blood pressure 72 mm[Hg] Dr. Marycarmen Rodriguez DO Work Phone: [facility] 12-02-2024 14:08-0400 Heart rate 78 /min Dr. Marycarmen Rodriguez DO Work Phone: [facility] 12-02-2024 14:08-0400 Respiratory rate 18 /min Dr. Marycarmen Rodriguez DO Work Phone: [facility] 12-02-2024 14:08-0400 SaO2% (BldA) [Mass fraction] 98 % Dr. Marycarmen Rodriguez DO Work Phone: [facility] 12-02-2024 14:08-0400 Systolic blood pressure 150 mm[Hg] Dr. Marycarmen oRdriguez DO Work Phone: [facility] 12-02-2024 14:01-0400 Inhaled oxygen flow rate 3 L/min Dr. Marycarmen Rodriguez DO Work Phone: [facility] 12-02-2024 08:32-0400 Body height 175.[address] Marycarmen Rodriguez DO Work Phone: [facility] 12-02-2024 08:32-0400 Body weight 109.[address] Marycarmen Rodriguez DO Work Phone: [facility] 12-02-2024 05:30-0400 Body mass index (BMI) [Ratio] 35.6 kg/m2 Dr. Marycarmen Rodriguez DO Work Phone: [facility] 11-30-2024 15:45-0400 Diastolic blood pressure 70 mm[Hg] Dr. Marycarmen Rodriguez DO Work Phone: [facility] 11-30-2024 15:45-0400 Systolic blood pressure 146 mm[Hg] Dr. Marycarmen Rodriguez DO Work Phone: [facility] 11-28-2024 09:15-0400 SaO2% (BldA) [Mass fraction] 94 % Dr. Marycarmen Rodriguez DO Work Phone: [facility] 11-28-2024 09:10-0400 Body temperature 97.5 [degF] Dr. Marycarmen Rodriguez DO Work Phone: [facility] 11-28-2024 09:10-0400 Diastolic blood pressure 64 mm[Hg] Dr. Marycarmen Rodriguez DO Work Phone: [facility] 11-28-2024 09:10-0400 Heart rate 86 /min Dr. Marycarmen Rodriguez DO Work Phone: [facility] 11-28-2024 09:10-0400 Respiratory rate 18 /min Dr. Marycarmen Rodriguez DO Work Phone: [facility] 11-28-2024 09:10-0400 Systolic blood pressure 129 mm[Hg] Dr. Marycarmen Rodriguez DO Work Phone: [facility] 11-28-2024 05:13-0400 Body mass index (BMI) [Ratio] 35.2 kg/m2 Dr. Marycarmen Rodriguez DO Work Phone: [facility] 11-28-2024 05:13-0400 Body weight 108.[address] Marycarmen Rodriguez DO Work Phone: [facility] 11-27-2024 15:54-0400 Body height 175.[address] Marycarmen Rodriguez DO Work Phone: [facility] 11-27-2024 15:54-0400 Body mass index (BMI) [Ratio] 35.4 kg/m2 Dr. Marycarmen Rodriguez DO Work Phone: [facility] 11-27-2024 15:54-0400 Body weight 108.[address] Marycarmen Rodriguez DO Work Phone: [facility] 11-27-2024 13:45-0400 Diastolic blood pressure 68 mm[Hg] Dr. Marycarmen Rodriguez DO Work Phone: [facility] 11-27-2024 13:45-0400 Heart rate 75 /min Dr. Marycarmen Rodriguez DO Work Phone: [facility] 11-27-2024 13:45-0400 Respiratory rate 21 /min Dr. Marycarmen Rodriguez DO Work Phone: [facility] 11-27-2024 13:45-0400 SaO2% (BldA) [Mass fraction] 95 % Dr. Marycarmen Rodriguez DO Work Phone: [facility] 11-27-2024 13:45-0400 Systolic blood pressure 115 mm[Hg] Dr. Marycarmen Rodriguez DO Work Phone: [facility] 11-26-2024 21:38-0400 Body temperature 98.1 [degF] Dr. Marycarmen Rodriguez DO Work Phone: [facility] 11-26-2024 21:38-0400 Diastolic blood pressure 68 mm[Hg] Dr. Marycarmen Rodriguez DO Work Phone: [facility] 11-26-2024 21:38-0400 Heart rate 68 /min Dr. Marycarmen Rodriguez DO Work Phone: [facility] 11-26-2024 21:38-0400 Respiratory rate 18 /min Dr. Marycarmen Rodriguez DO Work Phone: [facility] 11-26-2024 21:38-0400 SaO2% (BldA) [Mass fraction] 98 % Dr. Marycarmen Rodriguez DO Work Phone: [facility] 11-26-2024 21:38-0400 Systolic blood pressure 132 mm[Hg] Dr. Marycarmen Rodriguez DO Work Phone: [facility] 11-26-2024 18:03-0400 Inhaled oxygen flow rate 2 L/min Dr. Marycarmen Rodriguez DO Work Phone: [facility] 11-26-2024 17:37-0400 Body height 175.[address] Marycaremn Rodriguez DO Work Phone: [facility] 11-26-2024 17:37-0400 Body mass index (BMI) [Ratio] 37.3 kg/m2 Dr. Marycarmen Rodriguez DO Work Phone: [facility] 11-26-2024 17:37-0400 Body weight 114.[address] Marycarmen Rodriguez DO Work Phone: [facility] 11-22-2024 10:41-0400 Body mass index (BMI) [Ratio] 35.9 kg/m2 Dr. Marycarmen Rodriguez DO Work Phone: [facility] 11-22-2024 10:41-0400 Body weight 110.[address] Marycarmen Rodriguez DO Work Phone: [facility] 11-22-2024 10:41-0400 Diastolic blood pressure 62 mm[Hg] Dr. Marycarmen Rodriguez DO Work Phone: [facility] 11-22-2024 10:41-0400 Heart rate 66 /min Dr. Marycarmen Rodriguez DO Work Phone: [facility] 11-22-2024 10:41-0400 Respiratory rate 20 /min Dr. Marycarmen Rodriguez DO Work Phone: [facility] 11-22-2024 10:41-0400 Systolic blood pressure 107 mm[Hg] Dr. Marycarmen Rodriguez DO Work Phone: [facility] 10-31-2024 07:44-0400 Body mass index (BMI) [Ratio] 35.4 kg/m2 Dr. Marycarmen Rodriguez DO Work Phone: [facility] 10-31-2024 07:44-0400 Body temperature 97.1 [degF] Dr. Marycarmen Rodriguez DO Work Phone: [facility] 10-31-2024 07:44-0400 Body weight 108.[address] Marycarmen Rodriguez DO Work Phone: [facility] 10-31-2024 07:44-0400 Diastolic blood pressure 75 mm[Hg] Dr. Marycarmen Rodriguez DO Work Phone: [facility] 10-31-2024 07:44-0400 Heart rate 64 /min Dr. Marycarmen Rodriguez DO Work Phone: [facility] 10-31-2024 07:44-0400 Respiratory rate 20 /min Dr. Marycarmen Rodriguez DO Work Phone: [facility] 10-31-2024 07:44-0400 SaO2% (BldA) [Mass fraction] 97 % Dr. Marycarmen Rodriguez DO Work Phone: [facility] 10-31-2024 07:44-0400 Systolic blood pressure 135 mm[Hg] Dr. Marycarmen Rodriguez DO Work Phone: [facility] 10-25-2024 08:10-0400 Body height 175.[address] Marycarmen Rodriguez DO Work Phone: [facility] 10-25-2024 08:10-0400 Body mass index (BMI) [Ratio] 35.9 kg/m2 Dr. Marycarmen Rodriguez DO Work Phone: [facility] 10-25-2024 08:10-0400 Body weight 110.[address] Marycarmen Rodriguez DO Work Phone: [facility] 10-25-2024 08:10-0400 Diastolic blood pressure 85 mm[Hg] Dr. Marycarmen Rodriguez DO Work Phone: [facility] 10-25-2024 08:10-0400 Heart rate 85 /min Dr. Marycarmen Rodriguez DO Work Phone: [facility] 10-25-2024 08:10-0400 Respiratory rate 18 /min Dr. Marycarmen Rodriguez DO Work Phone: [facility] 10-25-2024 08:10-0400 Systolic blood pressure 121 mm[Hg] Dr. Marycarmen Rodriguez DO Work Phone: [facility] 09-20-2024 09:15-0400 Body height 175.[address] Marycarmen Rodriguez DO Work Phone: [facility] 09-20-2024 09:15-0400 Body mass index (BMI) [Ratio] 35.6 kg/m2 Dr. Marycarmen Rodriguez DO Work Phone: [facility] 09-20-2024 09:15-0400 Body temperature 96.8 [degF] Dr. Marycarmen Rodriguez DO Work Phone: [facility] 09-20-2024 09:15-0400 Body weight 109.[address] Marycarmen Rodriguez DO Work Phone: [facility] 09-20-2024 09:15-0400 Diastolic blood pressure 77 mm[Hg] Dr. Marycarmen Rodriguez DO Work Phone: [facility] 09-20-2024 09:15-0400 Heart rate 66 /min Dr. Marycarmen Rodriguez DO Work Phone: [facility] 09-20-2024 09:15-0400 Respiratory rate 18 /min Dr. Marycarmen Rodriguez DO Work Phone: [facility] 09-20-2024 09:15-0400 SaO2% (BldA) [Mass fraction] 97 % Dr. Marycarmen Rodriguez DO Work Phone: [facility] 09-20-2024 09:15-0400 Systolic blood pressure 121 mm[Hg] Dr. Marycarmen Rodriguez DO Work Phone: [facility] 07-18-2024 06:00-0400 Body height 175.[address] Marycarmen Rodriguez DO Work Phone: [facility] 07-18-2024 06:00-0400 Body weight 104.[address] Marycarmen Rodriguez DO Work Phone: [facility] 07-18-2024 06:00-0400 Heart rate 69 /min Dr. Marycarmen Rodriguez DO Work Phone: [facility] 07-18-2024 06:00-0400 SaO2% (BldA) [Mass fraction] 97 % Dr. Marycarmen Rodriguez DO Work Phone: [facility] 07-03-2024 08:35-0500 Body mass index (BMI) [Ratio] 36.6 kg/m2 Dr. Marycarmen Rodriguez DO Work Phone: [facility] 07-03-2024 08:35-0500 Body temperature 97.5 [degF] Dr. Marycarmen Rodriguez DO Work Phone: [facility] 07-03-2024 08:35-0500 Body weight 109.[address] Marycarmen Rodriguez DO Work Phone: [facility] 07-03-2024 08:35-0500 Diastolic blood pressure 77 mm[Hg] Dr. Marycarmen Rodriguez DO Work Phone: [facility] 07-03-2024 08:35-0500 Heart rate 72 /min Dr. Marycarmen Rodriguez DO Work Phone: [facility] 07-03-2024 08:35-0500 Respiratory rate 20 /min Dr. Marycarmen Rodriguez DO Work Phone: [facility] 07-03-2024 08:35-0500 SaO2% (BldA) [Mass fraction] 96 % Dr. Marycarmen Rodriguez DO Work Phone: [facility] 07-03-2024 08:35-0500 Systolic blood pressure 116 mm[Hg] Dr. Marycarmen Rodriguez DO Work Phone: [facility] 04-17-2024 15:55-0500 Body height [address] Marycarmen Rodriguez DO Work Phone: [facility] 04-17-2024 15:55-0500 Body mass index (BMI) [Ratio] 36.9 kg/m2 Dr. Marycarmen Rodriguez DO Work Phone: [facility] 04-17-2024 15:55-0500 Body weight 110.[address] Marycarmen Rodriguez DO Work Phone: [facility] 04-17-2024 15:55-0500 Diastolic blood pressure 53 mm[Hg] Dr. Marycarmen Rodriguez DO Work Phone: [facility] 04-17-2024 15:55-0500 Heart rate 70 /min Dr. Marycarmen Rodriguez DO Work Phone: [facility] 04-17-2024 15:55-0500 Respiratory rate 18 /min Dr. Marycarmen Rodriguez DO Work Phone: [facility] 04-17-2024 15:55-0500 SaO2% (BldA) [Mass fraction] 94 % Dr. Marycarmen Rodriguez DO Work Phone: [facility] 04-17-2024 15:55-0500 Systolic blood pressure 91 mm[Hg] Dr. Marycarmen Rodriguez DO Work Phone: [facility] 03-27-2024 10:17-0500 Diastolic blood pressure 79 mm[Hg] Dr. Marycarmen Rodriguez DO Work Phone: [facility] 03-27-2024 10:17-0500 Heart rate 67 /min Dr. Marycarmen Rodriguez DO Work Phone: [facility] 03-27-2024 10:17-0500 Respiratory rate 18 /min Dr. Marycarmen Rodriguez DO Work Phone: [facility] 03-27-2024 10:17-0500 Systolic blood pressure 134 mm[Hg] Dr. Marycarmen Rodriguez DO Work Phone: [facility] 03-20-2024 08:28-0500 Body mass index (BMI) [Ratio] 37.5 kg/m2 Dr. Marycarmen Rodriguez DO Work Phone: [facility] 03-20-2024 08:28-0500 Body weight 112.[address] Marycarmen Rodriguez DO Work Phone: [facility] 03-20-2024 08:28-0500 Diastolic blood pressure 89 mm[Hg] Dr. Marycarmen Rodriguez DO Work Phone: [facility] 03-20-2024 08:28-0500 Heart rate 61 /min Dr. Marycarmen Rodriguez DO Work Phone: [facility] 03-20-2024 08:28-0500 Respiratory rate 18 /min Dr. aMrycarmen Rodriguez DO Work Phone: [facility] [facility] 03-20-2024 08:28-0500 Systolic blood pressure 141 mm[Hg] Dr. Marycarmen Rodriguez DO Work Phone: [facility] 12-21-2022 07:51-0400 Body height 172.[address] Marycarmen Rodriguez Work Phone: [facility] 12-21-2022 07:51-0400 Body weight 85.[address] Marycarmen Rodriguez Work Phone: [facility] 12-18-2022 08:27-0400 Body mass index (BMI) [Ratio] 28.7 kg/m2 Dr. Marycarmen Rodriguez Work Phone: [facility] 12-15-2022 13:03-0400 Body mass index (BMI) [Ratio] 28.7 kg/m2 Dr. Marycarmen Rodriguez Work Phone: [facility] 12-15-2022 13:03-0400 Body weight 85.[address] Marycarmen Rodriguez Work Phone: [facility] 12-15-2022 13:03-0400 Diastolic blood pressure 92 mm[Hg] Dr. Marycarmen Rodriguez Work Phone: [facility] 12-15-2022 13:03-0400 Heart rate 72 /min Dr. Marycarmen Rodriguez Work Phone: [facility] 12-15-2022 13:03-0400 Respiratory rate 16 /min Dr. Marycarmen Rodriguez Work Phone: [facility] 12-15-2022 13:03-0400 Systolic blood pressure 156 mm[Hg] Dr. Marycarmen Rodriguez Work Phone: [facility] 10-13-2022 10:59-0400 Body height 172.72 cm Marycarmen Jennifer [facility] 10-13-2022 10:59-0400 Body mass index (BMI) [Ratio] 25.4 kg/m2 Marycarmen Jennifer [facility] 10-13-2022 10:59-0400 Body weight 75.74 kg Marycarmen Jennifer [facility] 10-13-2022 10:59-0400 Diastolic blood pressure 75 mm[Hg] [facility] 10-13-2022 10:59-0400 Heart rate 65 /min [facility] 10-13-2022 10:59-0400 Respiratory rate 18 /min Marycarmen Jennifer [facility] 10-13-2022 10:59-0400 SaO2% (BldA) [Mass fraction] 94 % Marycarmen [facility] 10-13-2022 10:59-0400 Systolic blood pressure 143 mm[Hg] Marycarmen [facility] 09-21-2022 15:30-0400 Body mass index (BMI) [Ratio] 34.7 kg/m2 Marycarmen [facility] 09-21-2022 15:27-0400 Body temperature 98 [degF] Marycarmen [facility] 09-21-2022 15:27-0400 Diastolic blood pressure 84 mm[Hg] Marycarmen [facility] 09-21-2022 15:27-0400 Heart rate 79 /min Marycarmen [facility] 09-21-2022 15:27-0400 Respiratory rate 17 /min Marycarmen [facility] 09-21-2022 15:27-0400 SaO2% (BldA) [Mass fraction] 96 % Marycarmen [facility] 09-21-2022 15:27-0400 Systolic blood pressure 143 mm[Hg] Marycarmen [facility] 09-21-2022 06:25-0400 Body weight 103.6 kg Marycarmen [facility] 09-19-2022 01:30-0400 Inhaled oxygen concentration 21 % Marycarmen [facility] 09-01-2022 09:59-0400 Diastolic blood pressure 68 mm[Hg] Marycarmen [facility] 09-01-2022 09:59-0400 Heart rate 49 /min Marycarmen Jennifer [facility] 09-01-2022 09:59-0400 Systolic blood pressure 127 mm[Hg] Marycarmen [facility] 09-01-2022 09:57-0400 Body temperature 97.9 [degF] Marycarmen [facility] 09-01-2022 09:57-0400 Respiratory rate 18 /min Marycarmen [facility] 09-01-2022 09:57-0400 SaO2% (BldA) [Mass fraction] 93 % Marycarmen Jennifer [facility] 09-01-2022 04:08-0400 Body mass index (BMI) [Ratio] 35.2 kg/m2 Marycarmen Jennifer [facility] 09-01-2022 04:08-0400 Body weight 108.2 kg Marycarmen SWAIN [facility] 08-31-2022 11:42-0400 Body height 175.26 cm Marycarmen Jennifer [facility] 08-19-2022 10:01-0400 Body height 175.26 cm Marycarmen Jennifer [facility] 08-19-2022 10:01-0400 Body mass index (BMI) [Ratio] 35.4 kg/m2 Marycarmen Jennifer [facility] 08-19-2022 10:01-0400 Body weight 109.03 kg Marycarmen Jennifer [facility] 08-19-2022 10:01-0400 Diastolic blood pressure 79 mm[Hg] Marycarmen [facility] 08-19-2022 10:01-0400 Heart rate 62 /min Marycarmen Jennifer [facility] 08-19-2022 10:01-0400 Respiratory rate 18 /min Marycarmen Jennifer [facility] 08-19-2022 10:01-0400 Systolic blood pressure 144 mm[Hg] Marycarmen Jennifer [facility] 04-16-2022 12:43-0500 Body height 175.[address] Marycarmen Rodriguez Work Phone: [facility] 04-16-2022 12:43-0500 Body mass index (BMI) [Ratio] 35.2 kg/m2 Dr. Marycarmen Rodriguez Work Phone: [facility] 04-16-2022 12:43-0500 Body temperature 97 [degF] Dr. Marycarmen Rodriguez Work Phone: [facility] 04-16-2022 12:43-0500 Body weight 108.[address] Marycarmen Rodriguez Work Phone: [facility] 04-16-2022 12:43-0500 Diastolic blood pressure 78 mm[Hg] Dr. Marycarmen Rodriguez Work Phone: [facility] 04-16-2022 12:43-0500 Heart rate 66 /min Dr. Marycarmen Rodriguez Work Phone: [facility] 04-16-2022 12:43-0500 Respiratory rate 18 /min Dr. Marycarmen Rodriguez Work Phone: [facility] 04-16-2022 12:43-0500 SaO2% (BldA) [Mass fraction] 94 % Dr. Marycarmen Rodriguez Work Phone: [facility] 04-16-2022 12:43-0500 Systolic blood pressure 125 mm[Hg] Dr. Marycarmen Rodriguez Work Phone: [facility] 04-14-2022 10:27-0500 Body mass index (BMI) [Ratio] 35.2 kg/m2 Dr. Marycarmen Rodriguez Work Phone: [facility] 04-14-2022 10:27-0500 Body weight 108.[address] Marycarmen Rodriguez Work Phone: [facility] 04-14-2022 10:27-0500 Diastolic blood pressure 68 mm[Hg] Dr. Marycarmen Rodriguez Work Phone: [facility] 04-14-2022 10:27-0500 Heart rate 64 /min Dr. Marycarmen Rodriguez Work Phone: [facility] 04-14-2022 10:27-0500 Respiratory rate 18 /min Dr. Marycarmen Rodriguez Work Phone: [facility] 04-14-2022 10:27-0500 Systolic blood pressure 130 mm[Hg] Dr. Marycarmen Rodriguez Work Phone: [facility] 03-27-2022 13:25-0500 Body temperature 97.9 [degF] Dr. Marycarmen Rodriguez Work Phone: [facility] 03-27-2022 13:25-0500 Diastolic blood pressure 86 mm[Hg] Dr. Marycarmen Rodriguez Work Phone: [facility] 03-27-2022 13:25-0500 Heart rate 86 /min Dr. Marycarmen Rodriguez Work Phone: [facility] 03-27-2022 13:25-0500 Respiratory rate 14 /min Dr. Marycarmen Rodriguez Work Phone: [facility] 03-27-2022 13:25-0500 SaO2% (BldA) [Mass fraction] 96 % Dr. Marycarmen Rodriguez Work Phone: [facility] 03-27-2022 13:25-0500 Systolic blood pressure 134 mm[Hg] Dr. Marycarmen Rodriguez Work Phone: [facility] 01-07-2022 11:07-0400 Body mass index (BMI) [Ratio] 34.9 kg/m2 Dr. Marycarmen Rodriguez Work Phone: [facility] Work Phone: 01-07-2022 11:07-0400 Body temperature 97.4 [degF] Dr. Marycarmen Rodriguez Work Phone: [facility] Work Phone: 01-07-2022 11:07-0400 Body weight 107.[address] Marycarmen Rodriguez Work Phone: [facility] Work Phone: 01-07-2022 11:07-0400 Diastolic blood pressure 87 mm[Hg] Dr. Marycarmen Rodriguez Work Phone: [facility] Work Phone: 01-07-2022 11:07-0400 Heart rate 60 /min Dr. Marycarmen Rodriguez Work Phone: [facility] Work Phone: 01-07-2022 11:07-0400 Respiratory rate 16 /min Dr. Marycarmen Rodriguez Work Phone: [facility] Work Phone: 01-07-2022 11:07-0400 SaO2% (BldA) [Mass fraction] 96 % Dr. Marycarmen Rodriguez Work Phone: [facility] Work Phone: 01-07-2022 11:07-0400 Systolic blood pressure 155 mm[Hg] Dr. Marycarmen Rodriguez Work Phone: [facility] Work Phone: 11-21-2021 10:24-0400 Body height 175.[address] Marycarmen Rodriguez Work Phone: [facility] Work Phone: 11-21-2021 10:24-0400 Body mass index (BMI) [Ratio] 34.9 kg/m2 Dr. Marycarmen Rodriguez Work Phone: [facility] Work Phone: 11-21-2021 10:24-0400 Body weight 107.[address] Marycarmen Rodriguez Work Phone: [facility] Work Phone: 11-21-2021 10:24-0400 Diastolic blood pressure 77 mm[Hg] Dr. Marycarmen Rodriguez Work Phone: [facility] Work Phone: 11-21-2021 10:24-0400 Heart rate 61 /min Dr. Marycarmen Rodriguez Work Phone: [facility] Work Phone: 11-21-2021 10:24-0400 Respiratory rate 18 /min Dr. Marycarmen Rodriguez Work Phone: [facility] Work Phone: 11-21-2021 10:24-0400 SaO2% (BldA) [Mass fraction] 97 % Dr. Marycarmen Rodriguez Work Phone: [facility] Work Phone: 11-21-2021 10:24-0400 Systolic blood pressure 138 mm[Hg] Dr. Marycarmen Rodriguez Work Phone: [facility] Work Phone: 11-16-2021 16:49-0400 Diastolic blood pressure 87 mm[Hg] Dr. Marycarmen Rodriguez Work Phone: [facility] Work Phone: 11-16-2021 16:49-0400 Heart rate 53 /min Dr. Marycarmen Rodriguez Work Phone: [facility] Work Phone: 11-16-2021 16:49-0400 Respiratory rate 16 /min Dr. Marycarmen Rodriguez Work Phone: [facility] Work Phone: 11-16-2021 16:49-0400 SaO2% (BldA) [Mass fraction] 93 % Dr. Marycarmen Rodriguez Work Phone: [facility] Work Phone: 11-16-2021 16:49-0400 Systolic blood pressure 117 mm[Hg] Dr. Marycarmen Rodriguez Work Phone: [facility] Work Phone: 11-16-2021 12:55-0400 Body mass index (BMI) [Ratio] 33.2 kg/m2 Dr. Marycarmen Rodriguez Work Phone: [facility] Work Phone: 11-16-2021 12:55-0400 Body temperature 97.6 [degF] Dr. Marycarmen Rodriguez Work Phone: [facility] Work Phone: 11-16-2021 12:55-0400 Body weight 102.[address] Marycarmen Rodriguez Work Phone: [facility] Work Phone: 09-16-2021 10:37-0400 Body height 175.[address] Marycarmen Rodriguez Work Phone: [facility] Work Phone: 09-16-2021 10:37-0400 Body mass index (BMI) [Ratio] 35.7 kg/m2 Dr. Marycarmen Rodriguez Work Phone: [facility] Work Phone: 09-16-2021 10:37-0400 Body weight 109.[address] Marycarmen Rodriguez Work Phone: [facility] Work Phone: 09-16-2021 10:37-0400 Diastolic blood pressure 69 mm[Hg] Dr. Marycarmen Rodriguez Work Phone: [facility] Work Phone: 09-16-2021 10:37-0400 Heart rate 50 /min Dr. Marycarmen Rodriguez Work Phone: [facility] Work Phone: 09-16-2021 10:37-0400 Respiratory rate 18 /min Dr. Marycarmen Rodriguez Work Phone: [facility] Work Phone: 09-16-2021 10:37-0400 Systolic blood pressure 122 mm[Hg] Dr. Marycarmen Rodriguez Work Phone: [facility] Work Phone: 08-01-2021 10:02-0400 Body mass index (BMI) [Ratio] 35.7 kg/m2 Dr. Marycarmen Rodriguez Work Phone: [facility] Work Phone: 08-01-2021 10:02-0400 Body weight 109.[address] Marycarmen Rodriguez Work Phone: [facility] Work Phone: 08-01-2021 10:02-0400 Diastolic blood pressure 81 mm[Hg] Dr. Marycarmen Rodriguez Work Phone: [facility] Work Phone: 08-01-2021 10:02-0400 Heart rate 59 /min Dr. Marycarmen Rodriguez Work Phone: [facility] Work Phone: 08-01-2021 10:02-0400 Respiratory rate 18 /min Dr. Marycarmen Rodriguez Work Phone: [facility] Work Phone: 08-01-2021 10:02-0400 SaO2% (BldA) [Mass fraction] 97 % Dr. Marycarmen Rodriguez Work Phone: [facility] Work Phone: 08-01-2021 10:02-0400 Systolic blood pressure 133 mm[Hg] Dr. Marycarmen Rodriguez Work Phone: [facility] Work Phone: 08-01-2021 10:02-0400 Body height 175.[address] Marycarmen Rodriguez Work Phone: [facility] Work Phone: 08-01-2021 10:02-0400 Body mass index (BMI) [Ratio] 35.7 kg/m2 Dr. Marycarmen Rodriguez Work Phone: [facility] Work Phone: 08-01-2021 10:02-0400 Body weight 109.[address] Marycarmen Rodriguez Work Phone: [facility] Work Phone: 08-01-2021 10:02-0400 Diastolic blood pressure 81 mm[Hg] Dr. Marycarmen Rodriguez Work Phone: [facility] Work Phone: 08-01-2021 10:02-0400 Heart rate 59 /min Dr. Marycarmen Rodriguez Work Phone: [facility] Work Phone: 08-01-2021 10:02-0400 Respiratory rate 18 /min Dr. Marycarmen Rodriguez Work Phone: [facility] Work Phone: 08-01-2021 10:02-0400 SaO2% (BldA) [Mass fraction] 97 % Dr. Marycarmen Rodriguez Work Phone: [facility] Work Phone: 08-01-2021 10:02-0400 Systolic blood pressure 133 mm[Hg] Dr. Marycarmen Rodriguez Work Phone: [facility] Work Phone: 06-10-2021 18:38-0500 Diastolic blood pressure 75 mm[Hg] Dr. Marycarmen Rodriguez Work Phone: [facility] Work Phone: 06-10-2021 18:38-0500 Heart rate 57 /min Dr. Marycarmen Rodriguez Work Phone: [facility] Work Phone: 06-10-2021 18:38-0500 Respiratory rate 14 /min Dr. Marycarmen Rodriguez Work Phone: [facility] Work Phone: 06-10-2021 18:38-0500 SaO2% (BldA) [Mass fraction] 96 % Dr. Marycarmen Rodriguez Work Phone: [facility] Work Phone: 06-10-2021 18:38-0500 Systolic blood pressure 121 mm[Hg] Dr. Marycarmen Rodriguez Work Phone: [facility] Work Phone: 06-10-2021 13:36-0500 Body mass index (BMI) [Ratio] 34 kg/m2 Dr. Marycarmen Rodriguez Work Phone: [facility] Work Phone: 06-10-2021 13:36-0500 Body temperature 97 [degF] Dr. Marycarmen Rodriguez Work Phone: [facility] Work Phone: 06-10-2021 13:36-0500 Body weight 104.[address] Marcyarmen Rodriguez Work Phone: [facility] Work Phone: 05-19-2021 16:55-0500 Respiratory rate 16 /min Dr. Marycarmen Rodriguez Work Phone: [facility] Work Phone: 05-19-2021 14:43-0500 Body temperature 96.5 [degF] Dr. Marycarmen Rodriguez Work Phone: [facility] Work Phone: 05-19-2021 14:43-0500 Diastolic blood pressure 94 mm[Hg] Dr. Marycarmen Rodriguez Work Phone: [facility] Work Phone: 05-19-2021 14:43-0500 Heart rate 63 /min Dr. Marycarmen Rodriguez Work Phone: [facility] Work Phone: 05-19-2021 14:43-0500 SaO2% (BldA) [Mass fraction] 99 % Dr. Marycarmen Rodriguez Work Phone: [facility] Work Phone: 05-19-2021 14:43-0500 Systolic blood pressure 172 mm[Hg] Dr. Marycarmen Rodriguez Work Phone: [facility] Work Phone: 05-19-2021 14:42-0500 Body mass index (BMI) [Ratio] 34 kg/m2 Dr. Marycarmen Rodriguez Work Phone: [facility] Work Phone: 05-19-2021 14:42-0500 Body weight 104.[address] Marycarmen Rodriguez Work Phone: [facility] Work Phone: 12-26-2020 10:29-0400 Diastolic blood pressure 76 mm[Hg] Eladio Ingram MD Work Phone: [facility] 12-26-2020 10:29-0400 Systolic blood pressure 141 mm[Hg] Eladio Ingram MD Work Phone: [facility] 12-26-2020 10:24-0400 Body height 175.3 cm Eladio Ingram MD Work Phone: [facility] 12-26-2020 10:24-0400 Body mass index (BMI) [Ratio] 33.67 kg/m2 Eladio Ingram MD Work Phone: [facility] 12-26-2020 10:24-0400 Body weight 103.42 kg Eladio Ingram MD Work Phone: [facility] 12-26-2020 10:24-0400 Heart rate 59 /min Eladio Ingram MD Work Phone: [facility] 12-26-2020 10:24-0400 SaO2% (BldA) [Mass fraction] 95 % Eladio Ingram MD Work Phone: [facility] 10-09-2020 10:53-0400 Diastolic blood pressure 72 mm[Hg] Fernanda cAuña [employer] Work Phone: [facility] 10-09-2020 10:53-0400 Systolic blood pressure 134 mm[Hg] Fernanda Acuña [employer] Work Phone: [facility] 10-09-2020 09:59-0400 Body mass index (BMI) [Ratio] 34.6 kg/m2 Fernanda Kellyan [employer] Work Phone: [facility] 10-09-2020 09:59-0400 Body weight 106.28 kg Fernanda Acuña [employer] Work Phone: [facility] 10-09-2020 09:59-0400 Heart rate 58 /min Fernanda Kellyan [employer] Work Phone: [facility] 10-09-2020 09:59-0400 Respiratory rate 16 /min Fernanda Acuña [employer] Work Phone: [facility] 10-09-2020 09:59-0400 SaO2% (BldA) [Mass fraction] 94 % Fernanda Acuña [employer] Work Phone: [facility] 12-17-2016 11:21-0400 BMI (Body Mass Index) 32.99 kg/m2 Eladiopanchito Ingram [facility] Work Phone: 12-17-2016 11:21-0400 BP Diastolic 82 mm[Hg] Eladio Nataly [facility] Work Phone: 12-17-2016 11:21-0400 BP Systolic 150 mm[Hg] Eladio Hameedbayron [facility] Work Phone: 12-17-2016 11:21-0400 Height 175.3 cm Eladio Nataly [facility] Work Phone: 12-17-2016 11:21-0400 Pulse (Heart Rate) 70 /min Eladio Hameedbayron [facility] Work Phone: 12-17-2016 11:21-0400 Pulse Oximetry 97 % Eladio Hameedbayron [facility] Work Phone: 12-17-2016 11:21-0400 Weight 101.33 kg Eladio Ingram [facility] Work Phone: Encounters Encounter Date Encounter Type Care Provider Facility Start: 12-28-2024 [facility] Facility: [facility] Start: 12-27-2024 [facility] Facility: [facility] Start: 12-26-2024 Dr. Eladio Melendez MD -[facility] Work Phone: Start: [facility] Start: 12-25-2024 ambulatory [facility] Facility: [facility] Start: 12-25-2024 Dr. Eladio Melendez MD -[facility] Work Phone: Start: 12-24-2024 ambulatory [facility] Facility: [facility] Start: 12-24-2024 End: 12-26-2024 Evaluation and management of inpatient Marycarmen [facility] Facility:[facility] Start: 12-24-2024 Dr. Eladoi Melendez MD -Progressive Care Unit Work Phone: Start: 12-21-2024 ambulatory [facility] Facility: [facility] Start: 12-21-2024 Boyd Garcia Start: 12-20-2024 End: 12-20-2024 Dr. Jody Servin MD -Emergency Departmen t Work Phone: Start: 12-20-2024 End: 12-20-2024 Emergency department patient visit [facility] Facility:[facility] Start: 12-20-2024 ambulatory [facility] Facility: [facility] Start: 12-20-2024 Boyd Garcia Start: 12-18-2024 ambulatory Efandrés Rock OLS Fa cility:[facility] Start: 12-18-2024 Boyd Garcia Start: 12-17-2024 Dr. Marycarmen collins DO -[facility] Work Phone: Start: 12-16-2024 Dr. Marycarmen collins DO -[facility] Work Phone: Start: 12-16-2024 Dr. Lance Rodriguez MD -[facility] Start: 12-15-2024 End: 12-17-2024 Evaluation and management of inpatient Dr. Marycarmen Rodriguez DO Work Phone: -Progressive Care Unit Start: 12-15-2024 ambulatory [facility] Facility:[facility] Start: 12-15-2024 End: 12-17-2024 Dr. Marycarmen Marlow DO -Progressive Care Unit Work Phone: Start: 12-13-2024 ambulatory Efewongbe Shweta OLS Fa cility:[facility] Start: 12-13-2024 Boyd Solorzano - [facility] Start: 12-12-2024 End: 12-12-[address] Marycarmen Rodriguez DO Work Phone: -[facility] Start: 12-12-2024 End: 12-12-2024 Dr. Boyd Rock MD -[facility] Work Phone: Start: 12-12-2024 End: 12-12-[address] Marycarmen Rodriguez DO Work Phone: -Laboratory Start: 12-12-2024 End: 12-12-2024 Gustabo Pérez HOSPICE SOCIAL WORKER-C -Laboratory Work Phone: Start: 12-12-2024 End: 12-12-2024 Gustabo Pérez HOSPICE SOCIAL WORKER-C -[facility] Work Phone: Start: 12-12-2024 End: 12-12-[address] Marycarmen Rodriguez DO Work Phone: -[facility] Start: 12-12-2024 End: 12-12-2024 ambulatory [facility] Facility:[facility] Start: 12-08-2024 Dr. Alex Sanon MD -[facility] Work Phone: Start: 12-07-2024 End: 12-07-2024 ambulatory [facility] Facility:[facility] Start: 12-07-2024 End: 12-07-2024 Tess Balderas HOSPICE SOCIAL WORKER-C -[facility] Work Phone: Start: 12-07-2024 End: 12-08-[address] Marycarmen Rodriguez DO Work Phone: -Progressive Care Unit Start: 12-07-2024 End: 12-08-2024 ambulatory [facility] Facility:[facility] Start: 12-07-2024 End: 12-08-2024 Dr. Shaan Santos DO -[facility] Work Phone: Start: 12-06-2024 End: 12-06-2024 Dr. Marcin Araujo MD -Pulmonary Services/Neurology Work Phone: Start: 12-06-2024 End: 12-06-[address] Marycarmen Rodriguez DO Work Phone: -Pulmonary Services/Neurology Start: 12-06-2024 Dr. Alex Sanon MD -[facility] Work Phone: Start: 12-05-2024 Dr. Alex Sanon MD [facility] Work Phone: Start: 12-05-[address] Marycarmen vera DO Work Phone: -[facility] Start: 12-05-2024 Dr. Marcin Araujo MD [facility] Start: 12-04-2024 Dr. Abraham Ridley DO [facility] Work Phone: Start: 12-04-2024 Dr. Marcin Araujo MD [facility] Start: 12-03-2024 Dr. Ramonita Herron MD [facility] Work Phone: Start: 12-03-2024 Dr. Marcin Araujo MD [facility] Start: 12-03-2024 ambulatory Abraham Ridley Fac ility:[facility] Start: 12-03-2024 End: 12-06-2024 Evaluation and management of inpatient Dr. Marycarmen Rodriguez DO Work Phone: -Progressive Care Unit Start: 12-03-2024 End: 12-06-2024 Dr. Alex Sanon MD -Progressive Care Unit Work Phone: Start: 12-02-2024 Dr. [address] [facility] Start: 12-02-2024 ambulatory Abraham Ridley Fac ility:[facility] Start: 12-02-2024 Evaluation and manag ement of inpatient Dr. Marycarmen Rodriguez DO Work Phone: -Intensive Care Unit Start: 12-02-2024 Dr. Abraham Ridley DO -Intensive Care Unit Work Phone: Start: 12-02-2024 Dr. Nickie [facility] Work Phone: Start: 12-01-2024 Dr. Marcin Araujo MD -[facility] Start: 11-30-2024 End: 12-02-2024 Evaluation and management of inpatient Dr. Marycarmen Rodriguez DO Work Phone: -Intensive Care Unit Start: 11-30-2024 ambulatory Marycarmen ChiuJennifer Facility: [facility] Start: 11-30-2024 End: 12-02-2024 Dr. Abrahma Ridley DO -Intensive Care Unit Work Phone: Start: 11-27-2024 Dr. Jose Hay MD -[facility] Start: 11-27-[address] Marycarmen vera DO Work Phone: -[facility] Start: 11-27-2024 End: 11-28-2024 ambulatory Marycarmen Rodriguez Facility:[facility] Start: 11-27-2024 End: 11-28-2024 observation encounter [...] Dr. Marycarmen Rodriguez DO Work Phone: -Radiology [facility] Start: 11-22-2024 End: 11-22-2024 Gustabo POOL -Radiology [facility] Work Phone: Start: 11-22-2024 End: 11-22-2024 Gustabo POOL -[place] [facility] Work Phone: Start: 11-22-2024 End: 11-22-[address] Marycarmen Rodriguez DO Work Phone: -[facility] Start: 11-22-2024 End: 11-22-2024 ambulatory [facility] Facility:[facility] Start: 11-20-2024 End: 11-20-[address] Marycarmen Rodriguez DO Work Phone: -Radiology [facility] Start: 11-20-2024 End: 11-20-2024 Dr. Brooks Carpenter MD -Radiology [facility] Work Phone: Start: 11-20-2024 End: 11-20-2024 ambulatory [facility] Facility:[facility] Start: 11-13-2024 ambulatory [facility] Facility: [facility] Start: 11-13-2024 Non-patient / Non-visit Dr. Jose colon MD -[facility] Start: 11-13-2024 Dr. Jose Hay MD -[facility] Start: 11-10-2024 End: 11-10-[address] Marycarmen Rodriguez DO Work Phone: -Sleep Lab Start: 11-10-2024 End: 11-10-2024 Patient encounter procedure HOSPICE SOCIAL WORKER Maren Olivas -Sleep Lab Work Phone: Start: 11-10-2024 End: 11-10-2024 HOSPICE SOCIAL WORKER Maren Olivas -Sleep Lab Work Phone: Start: 11-10-2024 ambulatory [facility] Facility: [facility] Start: 11-10-2024 Non-patient / Non-visit Dr. Lance pereira MD -[facility] Work Phone: Start: 11-10-2024 Dr. Lance Rodriguez MD -[facility] Work Phone: Start: 11-10-2024 End: 11-10-[address] Marycarmen Rodriguez DO Work Phone: -Cardiovascular Services Start: 11-10-2024 End: 11-10-2024 Patient encounter procedure Gustabo H Roof HOSPICE SOCIAL WORKER-C -Cardiovascular Services Work Phone: Start: 11-10-2024 End: 11-10-2024 Gustabo Pérez HOSPICE SOCIAL WORKER-C -Cardiovascular Services Work Phone: Start: 11-09-2024 End: 11-10-[address] [facility]armen Rodriguez [facility] Start: 11-09-2024 End: 11-09-[address] Marycarmen Rodriguez DO [facility] Start: 11-09-2024 End: 11-09-2024 Dr. Marycarmen Rodriguez DO -[facility] Start: 11-09-2024 End: 11-09-2024 ambulatory Marycarmen Rodriguez Facility:[facility] Start: 10-31-2024 End: 10-31-2024 Patient encounter procedure ELIAZAR Olivas [facility] Work Phone: Start: 10-31-2024 End: 10-31-2024 HOSPICE SOCIAL WORKER Maren Olivas [facility] Work Phone: Start: 10-31-2024 End: 10-31-[address] Marycarmen Rodriguez DO Work Phone: -[facility] Start: 10-26-2024 End: 10-26-[address] Marycarmen Rodriguez DO Work Phone: -Sleep Lab Start: 10-26-2024 End: 10-26-2024 Patient encounter procedure Marni Horn HOSPICE SOCIAL WORKER-C -Sleep Lab Work Phone: Start: 10-26-2024 End: 10-26-2024 Marni Horn HOSPICE SOCIAL WORKER-C -Sleep Lab Work Phone: Start: 10-25-2024 End: 10-25-2024 Patient encounter procedure Gustabo Pérez HOSPICE SOCIAL WORKER-C -[facility] Work Phone: Start: 10-25-2024 End: 10-25-2024 Gustabo Pérez HOSPICE SOCIAL WORKER-C -[facility] Work Phone: Start: 10-25-2024 End: 10-26-[address] Marycarmen Rodriguez DO Work Phone: [facility] Work Phone: Start: 10-18-2024 End: 10-18-[address] Marycarmen Rodriguez DO Work Phone: [facility] Work Phone: Start: 10-18-2024 End: 10-18-2024 Patient encounter procedure Marni Horn HOSPICE SOCIAL WORKER-C -Sleep Lab Work Phone: Start: 10-18-2024 End: 10-18-2024 Marni Horn HOSPICE SOCIAL WORKER-C -Sleep Lab Work Phone: Start: 10-18-2024 End: 10-18-[address] Marycarmen Rodriguez DO Work Phone: [facility] Work Phone: Start: 10-18-2024 End: 10-18-[address] Brooks Carpenter MD -Laboratory Work Phone: Start: 10-18-2024 End: 10-18-2024 Dr. Brooks Carpenter MD -Laboratory Work Phone: Start: 10-18-2024 End: 10-18-2024 ambulatory Marycarmen Rodriguez Facility:[facility] Start: 09-29-2024 End: 09-29-[address] Marycarmen Rodriguez DO Work Phone: [facility] Work Phone: Start: 09-29-2024 End: 09-29-[address] Marycarmen Rodriguez DO -Laboratory Shahram Work Phone: Start: 09-29-2024 End: 09-29-2024 Dr. Marycarmen Rodriguez DO -Laboratory Lynn gifford Work Phone: Start: 09-29-2024 End: 09-29-2024 ambulatory Marycarmen Rodriguez Facility:[facility] Start: 09-22-2024 End: 09-22-[address] Marycarmen Rodriguez DO Work Phone: [facility] Work Phone: Start: 09-22-2024 End: 09-22-2024 Patient encounter procedure Marni Horn HOSPICE SOCIAL WORKER-C -Sleep Lab Work Phone: Start: 09-22-2024 End: 09-22-2024 Marni Horn HOSPICE SOCIAL WORKER-C -Sleep Lab Work Phone: Start: 09-22-2024 End: 09-22-2024 ambulatory [facility] Facility:[facility] Start: 09-20-2024 End: 09-20-[address] Marycarmen Rodriguez DO Work Phone: [facility] Work Phone: Start: 09-20-2024 End: 09-20-2024 Patient encounter procedure HOSPICE SOCIAL WORKER Maren Swensoner -Laboratory Work Phone: Start: 09-20-2024 End: 09-20-2024 HOSPICE SOCIAL WORKER Maren Swensoner -Laboratory Work Phone: Start: 09-20-2024 End: 09-20-2024 Patient encounter procedure HOSPICE SOCIAL WORKER Maren Olivas -[facility] Work Phone: Start: 09-20-2024 End: 09-20-2024 HOSPICE SOCIAL WORKER Maren Olivas -[facility] Work Phone: Start: 09-20-2024 End: 09-20-[address] Marycarmen Rodriguez DO Work Phone: [facility] Work Phone: Start: 09-20-2024 End: 09-20-2024 ambulatory [facility] Facility:[facility] Start: 08-03-2024 End: 08-03-[address] Marycarmen Rodriguez DO Work Phone: [facility] Work Phone: Start: 08-03-2024 End: 08-03-2024 Patient encounter procedure Marni Horn NP-C -Sleep Lab Work Phone: Start: 08-03-2024 End: 08-03-2024 Marni Horn HOSPICE SOCIAL WORKER-C -Sleep Lab Work Phone: Start: 08-03-2024 End: 08-03-2024 ambulatory Marycarmen Jennifer Facility:[facility] Start: 07-18-2024 ambulatory [facility]: [facility] Start: 07-18-2024 Non-patient / Non-visit Dr. Zen schultz DO -[facility] Start: 07-18-2024 End: 07-18-[address] Marycarmen Rodriguez DO Work Phone: [facility] Work Phone: Start: 07-18-2024 End: 07-18-2024 Patient encounter procedure Marni Horn NP-C -Pulmonary Services/Neurology Work Phone: Start: 07-17-2024 Non-patient / Non-visit Dr. Zen schultz DO -[facility] Start: 07-17-2024 End: 07-18-[address] Marycarmen Rodriguez DO Work Phone: [facility] Work Phone: Start: 07-17-2024 End: 07-17-2024 Patient encounter procedure Marni Horn NP-C -Sleep Lab Work Phone: Start: 07-17-2024 End: 07-17-2024 ambulatory Marycarmen [facility] Facility:[facility] Start: 07-07-2024 End: 07-07-[address] Marycarmen Rodriguez DO Work Phone: [facility] Work Phone: Start: 07-07-2024 End: 07-07-2024 Patient encounter procedure Marni Horn NP-C -Sleep Lab Work Phone: Start: 07-07-2024 End: 07-07-2024 ambulatory Marycarmen Jennifer Facility:[facility] Start: 07-03-2024 End: 07-03-2024 Patient encounter procedure Marni Horn HOSPICE SOCIAL WORKER-C -[facility] Work Phone: Start: 07-03-2024 End: 07-03-2024 ambulatory [facility] Start: 06-30-2024 End: 06-30-[address] Marycarmen Rodriguez DO Work Phone: [facility] Work Phone: Start: 06-30-2024 End: 06-30-2024 Patient encounter procedure Ritesh Laurent [facility] Start: 06-30-2024 End: 06-30-2024 ambulatory [facility] Facility:[facility] Start: 04-17-2024 End: 04-17-2024 Patient encounter procedure Gustabo POOL -[facility] Work Phone: Start: 04-17-2024 End: 04-17-2024 ambulatory [facility] Start: 04-17-2024 End: 04-17-2024 ambulatory [facility] Facility:[facility] Start: 03-27-2024 End: 03-27-[address] Jose Hay MD -[facility] Work Phone: Start: 03-27-2024 End: 03-27-2024 ambulatory [facility] Start: 03-23-2024 End: 03-23-2024 Patient encounter procedure Ritesh Laurent [facility] Start: 03-23-2024 End: 03-23-2024 ambulatory [facility] Facility:[facility] Start: 03-20-2024 End: 03-20-[address] Jose Hay MD -[facility] Work Phone: Start: 03-20-2024 End: 03-20-2024 ambulatory [facility] Start: 05-07-2023 End: 05-07-[address] [facility] Work Phone: Start: 05-07-2023 End: 05-07-[address] [facility] Start: 12-29-2022 Non-patient / Non-visit Dr. Ap Rodriguez Work Phone: [facility] Work Phone: Start: 12-28-2022 Non-patient / Non-visit Dr. Ap Rodriguez Work Phone: [facility] Start: 12-28-2022 End: 12-28-[address] Marycarmen Rodriguez Work Phone: [facility] Work Phone: Start: 12-28-2022 End: 12-28-[address] Marycarmen Rodriguez Work Phone: [facility]-Cardiovascul ar Services Work Phone: Start: 12-21-2022 End: 12-21-2022 Admission to same day surgery center Dr. Marycarmen Rodriguez Work Phone: [facility]-Neck Band Maker/Special Procedures Work Phone: Start: 12-21-2022 End: 12-21-[address] Marycarmen Rodriguez Work Phone: [facility] Work Phone: Start: 12-15-2022 End: 12-15-[address] Marycarmen Rodriguez Work Phone: [facility] Work Phone: Start: 12-15-2022 End: 12-15-[address] Marycarmen Rodriguez Work Phone: [facility]-Laboratory Work Phone: Start: 12-15-2022 End: 12-15-[address] Marycarmen Rodriguez Work Phone: [facility] Work Phone: Start: 10-16-2022 End: 10-16-2022 ambulatory Marycarmen Rodriguez [facility] Work Phone: Start: 10-16-2022 End: 10-16-2022 Patient encounter procedure Marycarmen SWAIN [facility]-Pulmonary Services/Neurology Start: 10-13-2022 End: 10-13-2022 ambulatory Marycarmen Rodriguez [facility] Work Phone: Start: 10-13-2022 End: 10-13-2022 Patient encounter procedure Marycarmen SWAIN [facility] Start: 09-21-2022 Non-patient / Non-visit Marycarmen gifford [facility] Start: 09-20-2022 Non-patient / Non-visit Marycarmen Porter gifford [facility] Start: 09-19-2022 Non-patient / Non-visit Marycarmen gifford [facility] Start: 09-18-2022 Non-patient / Non-visit Marycarmen Porter gifford [facility] Start: 09-17-2022 End: 09-17-2022 Non-patient / Non-visit Marycarmen SWAIN [facility] Start: 09-17-2022 End: 09-21-2022 Evaluation and management of inpatient Marycarmen [facility]WA[facility] Start: 09-09-2022 Non-patient / Non-visit Marycarmen Porter gifford [facility] Group Start: 09-01-2022 Non-patient / Non-visit Marycarmen gifford [facility] Start: 08-31-2022 End: 08-31-2022 Non-patient / Non-visit Marycarmen SWAIN [facility] Start: 08-31-2022 Non-patient / Non-visit Marycarmen gifford [facility] Start: 08-31-2022 End: 09-01-2022 [facility] Start: 08-31-2022 End: 09-01-2022 observation encounter Marycarmen SWAIN [facility] Work Phone: Start: 08-19-2022 End: 08-19-[address] [facility] Work Phone: Start: 08-19-2022 End: 08-19-2022 Patient encounter procedure Marycarmen SWAIN [facility] Start: 08-11-2022 Non-patient / Non-visit Marycarmen SWAIN [facility] Start: 06-11-2022 End: 06-11-[address] Marycarmen Rodriguez Work Phone: [facility] Work Phone: Start: 06-11-2022 End: 06-11-[address] Marycarmen Rodriguez Work Phone: [facility] Start: 04-21-2022 Non-patient / Non-visit Dr. Ap Rodriguez Work Phone: [facility] Start: 04-21-2022 End: 04-21-[address] Marycarmen Rodriguez Work Phone: [facility] Work Phone: Start: 04-21-2022 End: 04-21-[address] Marycarmen Rodriguez Work Phone: [facility]-Cardiovascul ar Services Start: 04-16-2022 End: 04-16-[address] Marycarmen Rodriguez Work Phone: [facility]-Pulmonary Medicine [facility] Start: 04-14-2022 End: 04-14-[address] Marycarmen Rodriguez Work Phone: [facility] Work Phone: Start: 04-14-2022 End: 04-14-[address] Marycarmen Rodriguez Work Phone: [facility] Start: 04-14-2022 End: 04-14-[address] Marycarmen Rodriguez Work Phone: [facility] Start: 03-27-2022 End: 03-27-[address] Marycarmen Rodriguez Work Phone: [facility] Start: 01-20-2022 End: 01-20-[address] Marycarmen Rodriguez Work Phone[facility] Start: 01-07-2022 End: 01-07-[address] Marycarmen Rodriguez [facility] Phone: [facility] Start: 11-27-2021 Non-patient / Non-visit Dr. Ap Rodriguez Work Phone: [facility] Start: 11-26-2021 End: 11-26-[address] Marycarmen Rodriguez Work Phone: [facility]-Pulmonary Services/Neurology Start: 11-21-2021 End: 11-21-[address] Marycarmen Rodriguez Work Phone: [facility] Start: 11-16-2021 End: 11-16-2021 Emergency department patient visit Dr. Marycarmen Rodriguez Work Phone: [facility]-Emergency Department Start: 10-28-2021 End: 10-28-[address] Marycarmen Rodriguez Work Phone: [facility] Start: 09-16-2021 End: 09-16-[address] Marycarmen Rodriguez Work Phone: [facility] Start: 09-16-2021 End: 09-16-[address] Marycarmen Rodriguez Work Phone: [facility] Start: 08-15-2021 Non-patient / Non-visit Dr. Ap Rodriguez Work Phone: [facility] Start: 08-15-2021 Non-patient / Non-visit Dr. Ap Rodriguez Work Phone: [facility] Start: 08-15-2021 End: 08-15-[address] Marycarmen Rodriguez Work Phone: [facility]-Cardiovascul ar Services Start: 08-01-2021 End: 08-01-[address] Marycarmen Rodriguez Work Phone: [facility] Start: 06-10-2021 End: 06-10-2021 Emergency department patient visit Dr. Marycarmen Rodriguez Work Phone: [facility]-Emergency Department Start: 05-19-2021 End: 05-19-2021 Emergency department patient visit Dr. Marycarmen Rodriguez Work Phone: [facility]-Emergency Department Start: 05-16-2021 End: 05-16-[address] Marycarmen Rodriguez Work Phone: 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) (Primary Dx) Start: 12-31-2020 Admission to [facility] Eladio Ingram MD Work Phone: [place] [facility] Comment on above: Chest pain, unspecif ied type (Primary Dx) Start: 12-26-2020 End: 12-30-2020 Orders Only Justa Euceda RN [facility] Start: 12-26-2020 End: 12-26-2020 Office outpatient visit 25 minutes Marycarmen Rodriguez DO Work Phone: [facility] Comment on above: Essential hypertensi on (Primary Dx); 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, unspecified whether cloverdale or transplanted heart (HCC); Coronary artery disease involving [place] coronary artery of [place] heart with angina pectoris (HCC); Mixed hyperlipidemia Start: 12-18-2020 ambulatory [facility] Start: 10-15-2020 End: 10-16-2020 ambulatory MARYCARMEN CHRISTY [facility] Start: 10-15-2020 End: 10-15-2020 Subsequent hospital visit by physician Eladio Ingram MD Work Phone: [facility] Comment on above: Arrived Start: 10-10-2020 ambulatory FERNANDA ACUÑA [facility] Ambulatory Start: 10-09-2020 End: 10-09-2020 Orders Only eFrnanda Acuña CNP Work Phone: [facility] Comment on above: DEAN (dyspnea on exer tion) (Primary Dx) Start: 10-09-2020 End: 10-09-2020 Office outpatient new 45 minutes Fernanda Acuña CNP Work Phone: [facility] Comment on above: DEAN (dyspnea on exer tion); Essential hypertension; Type 2 diabetes mellitus without complication, without long-term current use of insulin (HCC); MATTHEW (obstructive sleep apnea); Coronary artery disease involving [place] coronary artery of [place] heart without angina pectoris Start: 10-04-2020 End: 10-04-2020 Orders Only Deisi March RN [facility] Comment on above: Shortness of breath (Primary Dx) Start: 12-17-2016 Office/outpatient vi sit, est, level 4 Eladio Ingram Work Phone: [facility] Start: 11-28-2016 End: 11-28-2016 Patient encounter procedure [facility] Procedures Date Procedure Procedure Detail Performing Clinician Start: 12-26-2024 Blood count smear mc rscp w/mnl difrntl wbc count Dr. Marycarmen Rodriguez DO Work Phone: Start: 12-26-[address] Marycarmen Rodriguez DO Work Phone: Start: 12-26-2024 Mean corpuscular hemoglobin concentration determination Dr. Marycarmen Rodriguez DO Work Phone: Start: 12-26-2024 Nucleated red blood cell count procedure Dr. Marycarmen Rodriguez DO Work Phone: Start: 12-26-2024 Platelet mean volume determination Dr. Marycarmen Rodriguez DO Work Phone: Start: 12-26-2024 Serum inorganic phos phate measurement Dr. Marycarmen Rodriguez DO Work Phone: Start: 12-25-[address] Marycarmen adler DO Work Phone: Start: 12-24-2024 Measurement of occul t blood in stool specimen using immunoassay Dr. Marycarmen Rodriguez DO Work Phone: Start: 12-24-[address] Ap Rodriguez DO Work Phone: Start: 12-24-2024 Calculation of international normalized ratio Dr. Marycarmen Rodriguez DO Work Phone: Start: 12-21-2024 Blood count smear mc rscp w/mnl difrntl wbc count Dr. Marycarmen Rodriguez DO Work Phone: Start: 12-21-2024 Mean corpuscular hemoglobin concentration determination Dr. Marycarmen Rodriguez DO Work Phone: Start: 12-21-2024 Nucleated red blood cell count procedure Dr. Marycarmen Rodriguez DO Work Phone: Start: 12-21-2024 Platelet mean volume determination Dr. Marycarmen Rodriguez DO Work Phone: Start: 12-21-2024 Vitamin D, 25-hydrox y measurement Dr. Marycarmen Rodriguez DO Work Phone: Start: 12-20-2024 Measurement of occul t blood in stool specimen using immunoassay Dr. Marycarmen Rodriguez DO Work Phone: Start: 12-20-2024 X-ray of chest, PA a nd lateral views Dr. Marycarmen Rodriguez DO Work Phone: Start: 12-20-2024 Computed tomography of abdomen and pelvis with contrast Dr. Marycarmen Rodriguez DO Work Phone: Start: 12-20-2024 Blood count smear mc rscp w/mnl difrntl wbc count Dr. Marycarmen Rodriguez DO Work Phone: Start: 12-20-2024 Calculation of international normalized ratio Dr. Marycarmen Rodriguez DO Work Phone: Start: 12-20-[address] Marycarmen Rodriguez DO Work Phone: Start: 12-20-2024 Mean corpuscular hemoglobin concentration determination Dr. Marycarmen Rodriguez DO Work Phone: Start: 12-20-2024 Nucleated red blood cell count procedure Dr. Marycarmen Rodriguez DO Work Phone: Start: 12-20-2024 Platelet mean volume determination Dr. Marycarmen Rodriguez DO Work Phone: Start: 12-20-[address]24 [address] se measurement Dr. Marycarmen Rodriguez DO Work Phone: Start: 12-20-2024 Blood count smear mc rscp w/mnl difrntl wbc count Dr. Marycarmen Rodriguez DO Work Phone: Start: 12-20-2024 Mean corpuscular hemoglobin concentration determination Dr. Marycarmen Rodriguez DO Work Phone: Start: 12-20-2024 Nucleated red blood cell count procedure Dr. Marycarmen Rodriguez DO Work Phone: Start: 12-20-2024 Platelet mean volume determination Dr. Marycarmen Rodriguez DO Work Phone: Start: 12-18-2024 [address] e detection Dr. Marycarmen Rodriguez DO Work Phone: Start: 12-16-2024 Blood count smear mc rscp w/mnl difrntl wbc count Dr. Marycarmen Rodriguez DO Work Phone: Start: 12-16-[address] Marycarmen Rodriguez [facility] Work Phone: Start: 12-16-2024 Mean corpuscular hemoglobin [...] Platelet mean volume determination Dr. Marycarmen Rodriguez [facility] Work Phone: Start: 12-07-2024 Total cholesterol:HD L ratio measurement Dr. Marycarmen Rodriguez [employer] Phone: Start: 12-06-2024 Blood count smear mc rscp w/mnl difrntl wbc count Dr. Marycarmen Rodriguez [facility] Work Phone: Start: 12-06-2024 Mean corpuscular hemoglobin concentration determination Dr. Marycarmen Rodriguez DO Work Phone: Start: 12-06-2024 Nucleated red blood cell count procedure Dr. Marycarmen Rodriguez DO Work Phone: Start: 12-06-2024 Platelet mean volume determination Dr. Marcyarmen Rodriguez DO Work Phone: Start: 12-06-[address] Marycarmen Rodriguez [facility] Work Phone: Start: 12-06-2024 Serum inorganic phos phate measurement Dr. Marycarmen Rodriguez [facility] Work Phone: Start: 12-05-[address] Marycarmen Rodriguez [facility] Work Phone: Start: 12-04-2024 Blood count smear [...] Work Phone: Comment on above: Test Ordered: [id number] Screen, Urine Negative ng/mL UI Reference Range: Giyxdn=741Kokjdyahflo test includes Amphetamine and Methamphetamine.Barbiturates Negative ng/mL UI Reference Range: Elwagf=505Dtwnopnhbizocrk Negative ng/mL UI Reference Range: Uxgzpo=757Ljvpdfg (Metab.), Urine Negative ng/mL UI Reference Range: Rjgclq=458Knkvlnr Note: ng/mL UI See Final Results Reference Range: Xdngba=433Rswumz test includes Codeine, Morphine, Hydromorphone, Hydrocodone.Opiates Positive [A ] UI Reference Range: Mqmtiq=823Dehpjn test includes Codeine, Morphine, Hydromorphone, Hydrocodone.Codeine Negative UI Reference Range: Qetvur=070Favirmny Negative UI Reference Range: Hhtyho=796Wenvdfwxvvraf Negative UI Reference Range: Cotgwn=043Qrqremsuevi Positive [A ] UI Reference Range: .Hydrocodone Conf, MS, UR 349 ng/mL UI Reference Range: Cvxyfr=6840-Trrllslceljarj, Urine Negative ng/mL UI Reference Range: Cutoff=10Oxycodone/Oxymorphone, Urine Negative ng/mL UI Reference Range: Suouuh=616Rmfy includes Oxycodone and OxymorphonePCP, Urine Negative ng/mL UI Reference Range: Cutoff=25Methadone Screen, Urine Negative ng/mL UI Reference Range: Jhjspd=737Oooohgekzhgf, Urine Negative ng/mL UI Reference Range: Ushoiz=984Rfgutalp, Urine Negative ng/mL UI Reference Range: Cutoff=2.0Test includes Fentanyl and NorfentanylThis test was developed and its performance characteristicsdetermined by [facility]. It has not been cleared orapproved by the Food and Drug Administration.Tramadol Negative ng/mL UI Reference Range: Zocpyi=864Hssiaosvexphx, Urine Negative ng/mL UI Reference Range: Cutoff=10Creatinine, Urine 36.9 mg/dL UI Reference Range: 20.0-300.0pH, Urine 6.1 UI Reference Range: 4.5-8.9Performed at: [facility] [id number] [place], [place] [id number] Director: Erik Wallis PhD, Phone: [phone] at: [address] [id number] Director: Bharath Hawthorne PhD, Phone: [phone] Start: 10-18-[address] Marycarmen [...] w/le ast 12 lds w/i&r Fernanda Silvia Kellyjennifer [employer] Work Phone: Start: 08-18-2018 History of percutane ous transluminal coronary angioplasty History of percutaneous transluminal coronary angioplasty Dr. 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 Alexandr Mcclain Start: 08-13-2017 History of placement of stent for coronary artery disease History of coronary artery stent placement Dr. 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 Procedure aborted. 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 Start: 12-25-2024 End: 12-26-2024 [facility] Start: 12-25-2024 Continuous positive airway pressure ventilation treatment [facility] Start: 12-24-2024 End: 12-25-2024 [facility] Start: 12-24-[address] [facility] Start: 12-24-2024 Application of intermittent pneumatic compression device [facility] Start: 12-24-2024 Following clinical pathway protocol [facility] Start: 12-24-2024 Assessment of risk of venous thromboembolism [facility] Start: 12-24-2024 Care regimes management [facility] Start: 12-24-[address] [facility] Start: 12-24-2024 Inhalation therapy procedure [facility] Start: 12-24-2024 Insertion of catheter into peripheral vein [facility] Start: 12-24-2024 Introduction of urinary catheter [facility] Start: 12-24-2024 Measuring intake and output [facility] Start: 12-24-2024 Notification of physician [facility] Start: 12-24-[address] [facility] Start: 12-24-2024 Providing care according to standard [facility] Start: 12-24-2024 Provision of activity privileges [facility] Start: 12-24-2024 Referral to gastroenterology service [facility] Start: 12-24-2024 Referral to occupational therapist [facility] Start: 12-24-[address] [facility] Start: 12-24-[address] [facility] Start: 12-24-2024 [facility] Start: 12-20-2024 End: 12-20-2024 [facility] Start: 12-20-2024 [facility] Start: 12-17-[address] [facility] Start: 12-16-2024 [facility] Start: 12-15-2024 Dual pressure spontaneous ventilation support [facility] Start: 12-15-2024 Assessment of risk of venous thromboembolism [facility] Start: 12-15-2024 Care regimes management [facility] Start: 12-15-2024 Continuous pulse oximetry [facility] Start: 12-15-[address] [facility] Start: 12-15-2024 Insertion of catheter into peripheral vein [facility] Start: 12-15-2024 Measuring intake and output [facility] Start: 12-15-2024 Notification of physician [facility] Start: 12-15-2024 Providing care according to standard [facility] Start: 12-15-2024 Provision of activity privileges [facility] Start: 12-15-2024 Referral to groundskeeper [facility] Start: 12-15-2024 Referral to occupational therapist [facility] Start: 12-15-[address] [facility] Start: 12-15-2024 Tobacco use cessation education [facility] Start: 12-15-2024 End: 12-15-2024 [facility] Start: 12-15-2024 Following clinical pathway protocol [facility] Start: 12-15-[address] [facility] Start: 12-15-2024 [facility] Start: 12-15-2024 Patient referral to dietitian [facility] Start: 12-08-[address] [facility] Start: 12-07-2024 Following clinical pathway protocol [facility] Start: 12-07-2024 Assessment of risk of venous thromboembolism [facility] Start: 12-07-2024 Care regimes management [facility] Start: 12-07-2024 Inhalation therapy procedure [facility] Start: 12-07-2024 Insertion of catheter into peripheral vein [facility] Start: 12-07-2024 Measuring intake and output [facility] Start: 12-07-2024 Notification of physician [facility] Start: 12-07-2024 Providing care according to standard [facility] Start: 12-07-2024 Provision of activity privileges [facility] Start: 12-07-2024 Referral to occupational therapist [facility] Start: 12-07-[address] [facility] Start: 12-07-2024 End: 12-07-2024 [facility] Start: 12-07-2024 Pulmonary perfusion study [facility] Start: 12-07-[address] [facility] Start: 12-07-[address] [facility] Start: 12-07-2024 Hospital admission, emergency, from emergency room, medical nature [facility] Start: 12-07-2024 [facility] Start: 12-07-2024 [facility] Start: 12-07-2024 Dual pressure spontaneous ventilation support [facility] Start: 12-06-[address] [facility] Start: 12-05-2024 Referral to occupational therapist [facility] Start: 12-05-[address] [facility] Start: 12-03-[address] [facility] Start: 12-03-2024 Referral to groundskeeper [facility] Start: 12-03-[address] [facility] Start: 12-03-[address] [facility] Start: 12-02-2024 End: 12-02-2024 [facility] Start: 12-02-2024 Following clinical pathway protocol [facility] Start: 12-02-2024 Notification of physician [facility] Start: 12-02-[address] [facility] Start: 12-02-2024 Provision of activity privileges [facility] Start: 12-02-[address] [facility] Start: 12-02-2024 Taking patient vital signs [facility] Start: 12-02-[address] [facility] Start: 12-02-[address] [facility] Start: 12-02-2024 Dual pressure spontaneous ventilation support [facility] Start: 12-02-2024 End: 12-02-2024 Hospital admission, emergency, from emergency room, medical nature [facility] Start: 12-02-2024 [facility] Start: 12-02-[address] [facility] Start: 12-02-[address] [facility] Start: 12-02-2024 Magnetic resonance angiography of head without contrast [facility] Start: 12-02-2024 Magnetic resonance angiography of neck without contrast [facility] Start: 12-02-2024 MRA Head vessels WO contrast [facility] Start: 12-02-2024 MRA Neck vessels WO contrast [facility] Start: 12-01-2024 Vital signs measurements [facility] Start: 12-01-[address] [facility] Start: 12-01-[address] [facility] Start: 12-01-2024 Catheterization of vein [facility] Start: 12-01-[address] [facility] Start: 12-01-2024 Continuous pulse oximetry [facility] Start: 12-01-2024 Elevation of head of bed [facility] Start: 12-01-[address] [facility] Start: 12-01-2024 Notification of physician [facility] Start: 12-01-[address] [facility] Start: 12-01-2024 Patient referral to dietitian [facility] Start: 12-01-2024 Referral to occupational therapist [facility] Start: 12-01-[address] [facility] Start: 12-01-2024 Speech therapy assessment [facility] Start: 12-01-2024 Telemedicine consultation with patient [facility] Start: 12-01-20[address] Tobacco use cessation education [facility] Start: 12-01-2024 End: 12-01-2024 [facility] Start: 12-01-2024 [facility] Start: 12-01-2024 [facility] Start: 12-01-[address] [facility] Start: 12-01-2024 Continuous positive airway pressure ventilation treatment [facility] Start: 12-01-[address] [facility] Start: 12-01-[address] [facility] Start: 11-30-2024 End: 11-30-2024 [facility] Start: 11-30-2024 Following clinical pathway protocol [facility] Start: 11-30-[address] [facility] Start: 11-30-2024 Assessment of risk of venous thromboembolism [facility] Start: 11-30-2024 Insertion of catheter into peripheral vein [facility] Start: 11-30-2024 Measuring intake and output [facility] Start: 11-30-2024 Providing care according to standard [facility] Start: 11-30-[address] [facility] Start: 11-30-2024 Care regimes management [facility] Start: 11-30-[address] [facility] Start: 11-30-2024 Elevation of head of bed [facility] Start: 11-30-[address] [facility] Start: 11-30-[address] [facility] Start: 11-30-2024 Cardiac rehabilitation - phase 1 [facility] Start: 11-30-2024 Cardiac rehabilitation - phase 2 [facility] Start: 11-30-[address] [facility] Start: 11-30-[address] [facility] Start: 11-30-2024 End: 11-30-2024 Notification of physician [facility] Start: 11-30-[address] [facility] Start: 11-30-[address] [facility] Start: 11-30-2024 Provision of activity privileges [facility] Start: 11-30-[address] [facility] Start: 11-30-2024 Hospital admission, emergency, from emergency room, medical nature [facility] Start: 11-30-[address] [facility] Start: 11-30-2024 End: 11-30-2024 [facility] Start: 11-30-2024 Partial thromboplastin time, activated [facility] Start: 11-30-[address] [facility] Start: 11-28-2024 [facility] Start: 11-28-[address] [facility] Start: 11-28-[address] [facility] Start: 11-27-2024 Following clinical pathway protocol [facility] Start: 11-27-2024 Elevation of head of bed [facility] Start: 11-27-[address] [facility] Start: 11-27-[address] [facility] Start: 11-27-2024 Provision of activity privileges [facility] Start: 11-27-2024 End: 11-27-2024 [facility] Start: 11-27-[address] [facility] Start: 11-27-[address] [facility] Start: 11-27-2024 Cardiac rehabilitation - phase 1 [facility] Start: 11-27-2024 Cardiac rehabilitation - phase 2 [facility] Start: 11-27-2024 Notification of physician [facility] Start: 11-27-[address] [facility] Start: 11-27-[address] [facility] Start: 11-27-2024 Continuous positive airway pressure ventilation treatment [facility] Start: 11-27-2024 Inhalation therapy procedure [facility] Start: 11-26-2024 [facility] Start: 11-26-2024 [facility] Start: 11-22-2024 Evaluation of diagnostic study results [facility] Start: 10-25-2024 Evaluation of diagnostic study results [facility] Start: 07-25-2024 Walking distance 6 minutes [facility] Start: 07-17-2024 Measurement of respiratory function [facility] Start: 12-21-[address] [facility] Start: 10-05-2022 Measurement of respiratory function [facility] Start: 09-21-[address] [facility] Start: 09-20-2022 Telepractice consultation [facility] Start: 09-18-2022 Following clinical pathway protocol [facility] Start: 09-17-[address] [facility] Start: 09-17-2022 Assessment of risk of venous thromboembolism [facility] Start: 09-17-[address] [facility] Start: 09-17-2022 Care regimes management [facility] Start: 09-17-2022 Catheterization of vein [facility] Start: 09-17-2022 Continuous positive airway pressure ventilation treatment [facility] Start: 09-17-2022 Continuous pulse oximetry [facility] Start: 09-17-2022 Elevation of head of bed [facility] Start: 09-17-[address] [facility] Start: 09-17-[address] [facility] Start: 09-17-2022 Implementation of planned interventions [facility] Start: 09-17-2022 Inhalation therapy procedure [facility] Start: 09-17-2022 Insertion of catheter into peripheral vein [facility] Start: 09-17-2022 Introduction of urinary catheter [facility] Start: 09-17-2022 Measuring intake and output [facility] Start: 09-17-2022 Notification of physician [facility] Start: 09-17-[address] [facility] Start: 09-17-2022 End: 09-18-2022 Patient referral to dietitian [facility] Start: 09-17-2022 Providing care according to standard [facility] Start: 09-17-2022 Provision of activity privileges [facility] Start: 09-17-2022 Referral to occupational therapist [facility] Start: 09-17-[address] [facility] Start: 09-17-2022 Speech therapy assessment [facility] Start: 09-17-20[address] use [address] education [facility] Start: 09-17-2022 [facility] Start: 09-17-[address] [facility] Start: 09-01-[address] [facility] Start: 08-31-[address] [facility] Work Phone: Start: 08-31-2022 Following clinical pathway protocol [facility] Start: 08-31-[address] [facility] Start: 08-31-[address] [facility] Start: 08-31-2022 Cardiac rehabilitation - phase 1 [facility] Start: 08-31-2022 Cardiac rehabilitation - phase 2 [facility] Start: 08-31-2022 Notification of physician [facility] Start: 08-31-[address] [facility] Start: 08-31-[address] [facility] Start: 08-31-2022 Taking patient vital signs [facility] Start: 08-31-2022 Vascular disease risk assessment [facility] Start: 08-31-2022 Vital signs measurements [facility] Start: 08-31-2022 End: 08-31-2022 [facility] Start: 08-31-[address] [facility] Start: 11-16-2021 [facility] Work Phone: Start: 01-10-2021 End: 01-10-2021 Admission to same day surgery center 01/10/2021 Surgery Cardiology Eladio Ingram MD [address] [facility] [address] [place] [address] Left Heart Cath Possible PTCA/Stent [facility] [employer] [employer] Comment on above: Left Heart Cath Possible PTCA/Stent Start: 01-10-2021 Subsequent hospital visit by physician 01/10/2021 Hospital Encounter Eladio Ingram MD [address] [facility] [address] [place] [address] [facility] Start: 01-01-2021 Influenza vaccination [facility] Start: 12-26-2020 End: 12-26-2020 Patient encounter procedure 12/26/2020 Office Visit Cardiology Marycarmen Rodriguez, [address] [place], [place] [id number] Eladio Ingram MD [address] [facility] [address] [place] [address] [phone] [facility] Office Start: 10-15-2020 End: 10-15-2020 Patient encounter procedure 10/15/2020 Appointment Cardiology Eladio Ingram MD [address] [facility] [address] [place] [address] [phone] [facility] Start: 10-09-2020 End: 10-09-2020 Patient encounter procedure 10/09/2020 Office Visit Cardiology Fernanda Acuña, [employer] [address] [place] [address] [phone] [facility] Office Start: 11-05-2017 Prostate specific antigen measurement PSA Level [facility] Start: 06-01-2017 HEMOGLOBIN A1C HEMOGLOBIN A1C [facility] Work Phone: Start: 06-01-2017 Hemoglobin A1c measurement A1C [facility] Start: 06-01-2017 Hemoglobin A1c/Hemoglobin.total mass fraction (Bld) HEMOGLOBIN A1C [facility] Work Phone: Start: 01-01-2017 SEQUENTIAL INFLUENZA VACCINE (#1) SEQUENTIAL INFLUENZA VACCINE (#1) [facility] Work Phone: Start: 12-17-2016 Ambulatory 12/17/2016 Office Visit Cardiology Eladio Ingram MD [address] [facility] [address] [place] [address] [phone] [facility] Start: 2010 ABDOMINAL AORTIC ULTRASOUND ABDOMINAL AORTIC ULTRASOUND [facility] Work Phone: Start: 2010 Fall risk assessment Falls Risk Assessment [facility] Start: 2010 PNEUMOCOCCAL VACCINE AGE 65+ (1 of 2 - PCV13) PNEUMOCOCCAL VACCINE AGE 65+ (1 of 2 - PCV13) [facility] Work Phone: Start: 2005 Zoster vacc, sc ZOSTER VACCINE [facility] Work Phone: Start: 08-01-1995 Administration of herpes zoster vaccine Zoster Vaccines (1 of 2) [facility] Start: 08-01-1995 Screening for malignant neoplasm of colon [facility] Start: 08-01-1963 Hepatitis C screening Hepatitis C Screening [facility] Start: 1957 COVID-19 Vaccine (1) COVID-19 Vaccine (1) [facility] Start: 08-01-1955 3 comp foot exam completed FOOT EXAM [facility] Work Phone: Start: 08-01-1955 Albumin Test strip detection limit <= 20 mg/L mass conc (U) URINE MICROALBUMIN [facility] Work Phone: Start: 08-01-1955 Diabetic foot examination Foot Exam [facility] Start: 08-01-1955 Microalbumin measurement, urine, quantitative Urine Microalbumin [facility] Start: 08-01-1955 Ophthalmic examination and evaluation OPHTHALMOLOGY EXAM [facility] Start: 08-01-1955 FOOT EXAM FOOT EXAM [facility] Work Phone: Start: 08-01-1955 OPHTHALMOLOGY EXAM OPHTHALMOLOGY EXAM [facility] Work Phone: Start: 08-01-1955 URINE MICROALBUMIN URINE MICROALBUMIN [facility] Work Phone: Start: 08-01-1951 Pneumococcal Vaccine: Age 65+ (1 of 2 - PPSV23) Pneumococcal Vaccine: Age 65+ (1 of 2 - PPSV23) [facility] Start: 1948 History and physical examination, annual for health maintenance Wellness Visit [facility] Start: 1945 Colonoscopy COLONOSCOPY [facility] Work Phone: Start: 1945 Tetanus vaccination Tetanus: Every 10yrs [facility] Start: 1945 Colonoscopy COLONOSCOPY [facility] Work Phone: Start: 1945 End: 1945 HEPATITIS C SCREENING HEPATITIS C SCREENING [facility] Work Phone: Start: 1945 End: 1945 TETANUS EVERY 10 YR TETANUS EVERY 10 YR [facility] Work Phone: Alanine aminotransfe rase [Enzymatic activity/volume] in Serum or Plasma [facility] Alanine aminotransfe rase [Enzymatic activity/volume] in Serum or Plasma [facility] Albumin [Mass/volume ] in Serum or Plasma [facility] Albumin [Mass/volume ] in Serum or Plasma [facility] Alkaline phosphatase [Enzymatic activity/volume] in Serum or Plasma [facility] Alkaline phosphatase [Enzymatic activity/volume] in Serum or Plasma [facility] Anion gap in Serum or Plasma [facility] Anion gap in Serum or Plasma [facility] End: 12-26-2021 Basic metabolic 1999 panel - Serum or Plasma Basic metabolic panel Lab Routine 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, unspecified whether [place] or transplanted heart (HCC) Essential hypertension 1 Occurrences starting 12/26/2020 until 12/26/2021 [facility] Comment on above: 1 Occurrences starting 12/26/2020 until 12/26/2021 Basic metabolic 1999 panel - Serum or Plasma Basic metabolic panel Lab Routine 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, unspecified whether [place] or transplanted heart (HCC) Essential hypertension 12/26/2020 11:28 AM EDT [facility] Basic metabolic 2007 panel with ionized calcium - Serum or Plasma [facility] Basic metabolic 2007 panel with ionized calcium - Serum or Plasma [facility] Basic metabolic 2007 panel with ionized calcium - Serum or Plasma [facility] End: 12-17-2017 Basic metabolic panel [AGGREGATE] Basic metabolic panel Routine MATTHEW (obstructive sleep apnea) Coronary artery disease involving [place] coronary artery of [place] heart without angina pectoris 1 Occurrences starting 12/17/2016 until 12/17/2017 [employer] Work Phone: Bilirubin, total measurement [facility] Bilirubin, total measurement [facility] Blood chemistry [facility] BUN/Creatinine ratio [facility] BUN/Creatinine ratio [facility] Calcium [Mass/volume ] in Serum or Plasma [facility] Calcium [Mass/volume ] in Serum or Plasma [facility] Carbon dioxide, tota l [Moles/volume] in Central venous blood [facility] Carbon dioxide, tota l [Moles/volume] in Central venous blood [facility] Catheterization of [facility] Catheterization of l [facility] Catheterization of [facility] CBC W Auto Different ial panel - Blood [facility] CBC W Auto Different ial panel - Blood [facility] End: 12-26-2021 Complete blood count with white cell differential, manual CBC and differential Lab Routine 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, unspecified whether [place] or transplanted heart (HCC) Essential hypertension 1 Occurrences starting 12/26/2020 until 12/26/2021 [employer] Work Phone: Comment on above: 1 Occurrences starting 12/26/2020 until 12/26/2021 Complete blood count with white cell differential, manual CBC and differential Lab Routine 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, unspecified whether [place] or transplanted heart (HCC) Essential hypertension 12/26/2020 11:28 AM EDT [facility] Creatinine [Mass/vol ume] in Serum or Plasma [facility] Creatinine [Mass/vol ume] in Serum or Plasma [facility] End: 01-10-2022 CT Angiogram Aorta Chest Abdomen Pelvis CT Angiogram Aorta Chest Abdomen Pelvis Imaging Routine Coronary artery disease involving [place] coronary artery of [place] heart with angina pectoris (HCC) 1 Occurrences starting 01/10/2021 until 01/10/2022 [employer] Work Phone: Comment on above: 1 Occurrences starting 01/10/2021 until 01/10/2022 End: 12-04-2021 Echocardiography Echocardiogram complete Echocardiography Routine Shortness of breath 1 Occurrences starting 10/04/2020 until 12/04/2021 [facility] Comment on above: 1 Occurrences starting 10/04/2020 until 12/04/2021 Erythrocyte mean cor puscular volume determination [facility] Erythrocyte mean cor puscular volume determination [facility] Erythrocyte mean cor puscular volume determination [facility] Glucose [Mass/volume ] in Serum or Plasma [facility] Glucose [Mass/volume ] in Serum or Plasma [facility] Hematocrit [Volume F raction] of Blood [facility] Hematocrit [Volume F raction] of Blood [facility] Hematocrit [Volume F raction] of Blood [facility] Hemoglobin [Mass/vol ume] in Blood [facility] Hemoglobin [Mass/vol ume] in Blood [facility] Hemoglobin [Mass/vol ume] in Blood [facility] INR in Blood by Coag ulation assay [facility] LEFT HEART CATH POSS IBLE PTCA/STENT LEFT HEART CATH POSSIBLE PTCA/STENT [facility] Leukocytes [#/volume ] in Blood [facility] Leukocytes [#/volume ] in Blood [facility] Leukocytes [#/volume ] in Blood [facility] End: 12-17-2017 Magnesium Magnesium Routine MATTHEW (obstructive sleep apnea) Coronary artery disease involving [place] coronary artery of [place] heart without angina pectoris 1 Occurrences starting 12/17/2016 until 12/17/2017 [facility] Work Phone: Mean corpuscular hem oglobin concentration determination [facility] Mean corpuscular hem oglobin concentration determination [facility] Mean corpuscular hem oglobin concentration determination [facility] Mean corpuscular hem oglobin determination [facility] Mean corpuscular hem oglobin determination [facility] Mean corpuscular hem oglobin determination [facility] Measurement of renal function [facility] Measurement of renal function [facility] Measurement of respi ratory function [facility] Work Phone: Natriuretic peptide. B prohormone N-Terminal [Mass/volume] in Serum or Plasma [facility] Natriuretic peptide. B prohormone N-Terminal [Mass/volume] in Serum or Plasma [facility] NM Heart Views W str ess and W radionuclide IV [facility] Patient Education [facility] Work Phone: Patient referral [facility] Work Phone: Platelets [#/volume] in Blood [facility] Platelets [#/volume] in Blood [facility] Platelets [#/volume] in Blood [facility] Potassium measurement [facility] Potassium measurement [facility] Red blood cell count [facility] Red blood cell count [facility] Red blood cell count [facility] Red cell distributio n width determination [facility] Red cell distributio n width determination [facility] Red cell distributio n width determination [facility] Serum chloride measurement W [facility] Serum chloride measurement W [facility] Sodium measurement [facility] Sodium measurement [facility] Total protein measurement [facility] Total protein measurement [facility] Troponin T.cardiac [Mass/volume] in Serum or Plasma by High sensitivity method [facility] Troponin T.cardiac [Mass/volume] in Serum or Plasma by High sensitivity method [facility] Troponin T.cardiac [Mass/volume] in Serum or Plasma by High sensitivity method [facility] Troponin T.cardiac [Mass/volume] in Serum or Plasma by High sensitivity method [facility] Troponin T.cardiac [Mass/volume] in Serum or Plasma by High sensitivity method [facility] Troponin T.cardiac [Mass/volume] in Serum or Plasma by High sensitivity method [facility] Urea nitrogen [Mass/ volume] in Serum or Plasma [facility] Urea nitrogen [Mass/ volume] in Serum or Plasma [facility] XR Chest PA and Lateral [facility] Immunizations Immunization Date Immunization Notes Care Provider Fa doyle 11-26-2024 tetanus toxoid, redu terry diphtheria toxoid, and acellular pertussis vaccine, adsorbed Dr. Marycarmen Rodriguez DO Work Phone: [facility] 02-19-2023 influenza, injectabl e, quadrivalent, preservative free Dr. Marycarmen Rodriguez DO Work Phone: [facility] 01-27-2022 influenza, injectabl e, quadrivalent, preservative free Dr. Marycarmen Rodriguez DO Work Phone: [facility] 09-04-2021 Covid (Pfizer) Dr. Marycarmen hough DO Work Phone: [facility] 02-24-2021 Covid (Pfizer) Dr. Marycarmen hough DO Work Phone: [facility] 06-27-2020 Covid (Pfizer) Dr. Marycarmen hough DO Work Phone: [facility] 05-31-2020 Covid (Pfizer) Dr. Marycarmen hough DO Work Phone: [facility] 02-20-[address] Marycarmen Rodriguez Work Phone: [facility] 02-14-[address] Marycarmen Rodriguez Work Phone: [facility] 01-31-[address] Marycarmen Rodriguez Work Phone: [facility] 04-12-2017 influenza, high dose seasonal, preservative-free Dr. Marycarmen Rodriguez DO Work Phone: [facility] 11-29-2016 HEMOGLOBIN A1C [facility] Work Phone: 08-16-2014 pneumococcal polysaccharide vaccine, [address] Marycarmen Rodriguez DO Work Phone: [facility] 08-05-2005 hepatitis A vaccine, pediatric/adolescent dosage, [address] Marycarmen Rodriguez DO Work Phone: [facility] 01-14-2005 hepatitis A vaccine, pediatric/adolescent dosage, [address] Marycarmen Rodriguez DO Work Phone: [facility] 01-14-2005 TD(adult) unspecifie d formulation Dr. Marycarmen Rodriguez DO Work Phone: [facility] Payers Date Payer Category Payer Self-pay [id number] 2019 Unknown [id number] 1. [id number] 2019 Unknown [id number] 2012 Unknown [id number] 2.1 6.840.1.838130.3.249.13 2010 Medicare [id number] 2.16 .840.1.621066.3.249.13 2010 Medicare [id number] 1.2 .840.738242.1.13.385.2.7.3.982121.315 2010 Medicare [id number] 2010 Medicare [id number] 1945 Unknown [id number] 2. 840.1.201095.3.579.2.594 1945 Unknown [id number] 2. 840.1.788439.3.579.2.902 1945 Unknown [id number] 2. 840.1.820235.3.579.2.903 1945 Unknown [id number] 2.16 840.1.540282.3.579.2.903 1945 Unknown [id number] 2.16 840.1.727264.3.579.2.903 1945 Unknown [id number] 2.16 840.1.774787.3.579.2.903 1945 Unknown [id number] 2.16. 840.1.316425.3.579.2.903 1945 Unknown [id number] 2.16 840.1.713008.3.579.2.903 1945 Unknown [id number] 2.16. 840.1.715553.3.579.2.903 1945 Unknown [id number] 2.16. 840.1.260193.3.579.2.903 Unknown [id number] 2.16.8 40.1.051874.3.579.2.462 Unknown [id number] 2.16.8 40.1.961759.3.579.2.462 Unknown [id number] 2.16.8 40.1.830333.3.579.2.462 Unknown [id number] 2.16.8 40.1.857701.3.579.2.462 Unknown [id number] 2.16.8 40.1.238519.3.579.2.462 Unknown [id number] 2.16.8 40.1.057264.3.579.2.462 Unknown [id number] 2.16.8 40.1.470564.3.579.2.462 Unknown [id number] 2.16.8 40.1.495889.3.579.2.462 Unknown [id number] 2.16.8 40.1.123220.3.579.2.462 Unknown [id number] 2.16.8 40.1.253611.3.579.2.462 Unknown [id number] 2.16.8 40.1.879405.3.579.2.462 Unknown [id number] 2.16.8 40.1.979074.3.579.2.462 Unknown [id number] 2.16.8 40.1.415897.3.579.2.462 Unknown [id number] 2.16.8 40.1.233533.3.579.2.462 Unknown [id number] 2.16.8 40.1.160125.3.579.2.462 Unknown [id number] 2.16.8 40.1.641595.3.579.2.462 Unknown [id number] 2.16.8 40.1.029920.3.579.2.462 Unknown [id number] 2.16.8 40.1.597127.3.579.2.462 Unknown [id number] 2.16.8 40.1.057541.3.579.2.462 Unknown [id number] 2.16.8 40.1.132228.3.579.2.462 Unknown [id number] 2.16.8 40.1.679131.3.579.2.462 Unknown [id number] 2.16.8 40.1.260717.3.579.2.462 Unknown [id number] 2.16.8 40.1.127743.3.579.2.462 Unknown [id number] 2.16.8 40.1.116095.3.579.2.462 Unknown [id number] 2.16.8 40.1.461234.3.579.2.462 Unknown [id number] 2.16.8 40.1.370535.3.579.2.462 Unknown [id number] 2.16.8 40.1.341249.3.579.2.462 Unknown [id number] 2.16.8 40.1.341419.3.579.2.462 Unknown [id number] 2.16.8 40.1.853701.3.579.2.462 Unknown [id number] 2.16.8 40.1.103780.3.579.2.462 Unknown [id number] 2.16.8 40.1.616896.3.579.2.462 Unknown [id number] 2.16.8 40.1.321493.3.579.2.462 Unknown [id number] 2.16.8 40.1.331414.3.579.2.462 Unknown [id number] 2.16.8 40.1.387757.3.579.2.462 Unknown [id number] 2.16.8 40.1.260627.3.579.2.462 Unknown [id number] 2.16.8 40.1.844823.3.579.2.462 Unknown [id number] 2.16.8 40.1.599650.3.579.2.462 Unknown [id number] 2.16.8 40.1.495507.3.579.2.462 Unknown [id number] 2.16.8 40.1.453258.3.579.2.462 Unknown [id number] 2.16.8 40.1.405370.3.579.2.462 Unknown [id number] 2.16.8 40.1.292318.3.579.2.462 Unknown [id number] 2.16.8 40.1.430387.3.579.2.462 Unknown [id number] 2.16.8 40.1.832346.3.579.2.462 Unknown [id number] 2.16.8 40.1.313897.3.579.2.462 Unknown [id number] 2.16.8 40.1.999783.3.579.2.462 Unknown [id number] 2.16.8 40.1.959045.3.579.2.462 Unknown [id number] 2.16.8 40.1.308501.3.579.2.462 Unknown [id number] 2.16.8 40.1.988510.3.579.2.462 Unknown [id number] 2.16.8 40.1.750043.3.579.2.462 Unknown [id number] 2.16.8 40.1.105751.3.579.2.462 Unknown [id number] 2.16.8 40.1.880149.3.579.2.462 Unknown [id number] 2.16.8 40.1.323826.3.579.2.462 Unknown [id number] 2.16.8 40.1.787021.3.579.2.462 Unknown [id number] 2.16.8 40.1.059214.3.579.2.462 Unknown [id number] 2.16.8 40.1.737451.3.579.2.462 Unknown [id number] 2.16.8 40.1.496669.3.579.2.462 Unknown [id number] 2.16.8 40.1.853690.3.579.2.462 Unknown [id number] 2.16.8 40.1.398639.3.579.2.462 Unknown [id number] 2.16.8 40.1.091349.3.579.2.462 Unknown [id number] 2.16.8 40.1.733674.3.579.2.462 Unknown [id number] 2.16.8 40.1.755715.3.579.2.462 Unknown [id number] 2.16.8 40.1.298375.3.579.2.462 Unknown [id number] 2.16.8 40.1.584939.3.579.2.462 Unknown [id number] 2.16.8 40.1.892511.3.579.2.462 Unknown [id number] 2.16.8 40.1.576369.3.579.2.462 Unknown [id number] 2.16.8 40.1.228246.3.579.2.462 Unknown [id number] 2.16.8 40.1.610782.3.579.2.462 Unknown [id number] 2.16.8 40.1.098188.3.579.2.462 Unknown [id number] 2.16.8 40.1.300428.3.579.2.462 Unknown [id number] 2.16.8 40.1.399872.3.579.2.462 Unknown [id number] 2.16.8 40.1.753491.3.579.2.462 Unknown [id number] 2.16.8 40.1.122421.3.579.2.462 Unknown [id number] 2.16.8 40.1.930587.3.579.2.462 Unknown [id number] 2.16.8 40.1.571620.3.579.2.462 Unknown [id number] 2.16.8 40.1.900540.3.579.2.462 Unknown [id number] 2.16.8 40.1.163738.3.579.2.462 Unknown [id number] 2.16.8 40.1.299880.3.579.2.462 Unknown [id number] 2.16.8 40.1.892511.3.579.2.462 Social History Date Type Detail Facility Start: 12-17-2016 End: 12-24-2024 Tobacco smoking status NHIS Former smoker [facility] Start: 12-17-2016 End: 10-09-2020 Cigarettes smoked current (pack per day) - Reported [facility] Work Phone: Start: 1945 Sex Assigned At Not on file O [facility] Work Phone: Start: 12-17-2016 End: 10-09-2020 Tobacco use and exposure Never used [facility] Start: 12-17-2016 End: 01-10-2021 Alcohol intake Current non-drinker of alcohol (finding) [facility] Start: 03-10-2016 Tobacco Comment [facility] 25+ yrs [facility] Exposure to SARS-CoV -2 (event) Not sure [facility] Start: 08-01-2021 End: 12-21-2022 Tobacco smoking status NHIS Unknown if ever smoked [facility] Start: 01-12-2020 None [facility] Start: 01-12-2020 Spouse/ Signif icant Other [facility] Start: 11-18-2020 Non-smoker [facility] Start: 1945 Sex Assigned At Male W [facility] Start: 07-13-2024 End: 08-08-2024 Sex Male (finding) [facility] Medical Equipment Procedure Code Equipment Code Equipment Origin al Text Equipment Identifier Dates Colonoscopy FDA Start: 12-25-2024 Stent 3.50 X 23 Judie Rosenbaum Xpedition Rx - [id number] FDA Start: 01-04-2015 ()[id number] [id number] FDA Start: 08-31-2022 ()[id number] [id number] FDA Start: 08-31-2022 ()[id number] [id number] FDA Start: 11-27-2024 ()[id number] [id number] FDA Start: 11-30-2024 ()[id number] 0)[id number] FDA Start: 11-30-2024 Goals Date Patient Goal Desired Activity /State Functional Status Date Assessment Result Facility 12-26-2024 Functional status Ambulates [facility] Work Phone: 12-17-2024 Functional status Ambulates [facility] Work Phone: 12-08-2024 Functional status Bedrest [facility] Work Phone: 12-06-2024 Functional status Ambulates [facility] Work Phone: 12-05-2024 Functional status Ambulates [facility] Work Phone: 12-04-2024 Functional status Poor [facility] Work Phone: 12-02-2024 Functional status Bedrest [facility] Work Phone: 11-28-2024 Functional status Ambulates [facility] Work Phone: 11-27-2024 Functional status Dangle Feet [facility] Work Phone: 09-21-2022 Functional status Chair [facility] Work Phone: 09-20-2022 Functional status Assistive Ning lauro Rolling Walker [facility] Work Phone: 09-01-2022 Functional status Activity Ability Indepe ndent [facility] Work Phone: 08-31-2022 Functional status Ambulates [facility] Work Phone: Mental Status Date Assessment Result Facility 12-26-2024 Cognitive function Voice/Name [facility] Work Phone: 12-17-2024 Cognitive function Voice/Name [facility] Work Phone: 12-08-2024 Cognitive function Voice/Name [place] [facility] Work Phone: 12-07-2024 Cognitive function Voice/Name [place] [facility] Work Phone: 12-06-2024 Cognitive function Voice/Name [place] [facility] Work Phone: 12-05-2024 Cognitive function Voice/Name [facility] Work Phone: 12-02-2024 Cognitive function Voice/Name [place] [facility] Work Phone: 12-02-2024 Cognitive function Voice/Name [facility] Work Phone: 11-28-2024 Cognitive function Voice/Name [facility] Work Phone: 11-27-2024 Cognitive function Voice/Name [facility] Work Phone: 09-21-2022 Cognitive function Voice/Name [place] [facility] Work Phone: 09-01-2022 Cognitive function Appropriate;Cooperativ e [facility] Work Phone: 11-16-2021 Cognitive function Voice/Name [facility] Work Phone: 06-10-2021 Cognitive function Level Of Cons ciousness Awake;Alert;Appropriate [facility] Work Phone: Clinical Notes 06-25-2020 to 12-26-2024 Note Date & Type Note Facility 12-26-2024 Note [facility] 12-17-2024 Note [facility] 12-17-2024 Hospital Discharg e instructions Additional Instructions Date of Discharge: 12/17/24 [facility] Work Phone: 12-16-2024 Progress note Note Date/Time December 17, 2024 1:40pm [facility] Medical Records Department [address] [place] [address] Progress Note - Hospitalist 12/16/24 1843 MR#: [id number] Acct: [id number] Name: ERIBERTO RICO Rep #:[id number] : 1945 79 From: Marycarmen Marlow DO PCP: Dr. Marycarmen Rodriguez DO Status:ADM IN Location: [place] [address] Reason for Visit Chief Complaint: Chest pain Subjective Subjective Patient was seen and examined today, he had nausea and vomiting today and I elected to have him remain in the hospital for now and reevaluate him tomorrow for possible discharge to his [place] [facility]. 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 Work Phone: 1(121) 806-611208-16-2025 Progress note Author Lance Rodriguez [facility] Note Date/Time December 16, 2024 12 :02pm [facility] Medical Records Department [address] [place] [address] Progress Note 12/16/24 1154 MR#: [id number] Acct: [id number] Name: ERIBERTO RICO Rep #:[id number] : 1945 79 From: Lance Rodriguez MD PCP: Dr. Marycarmen Rodriguez, Status:ADM IN Location: [place] [address] Progress Note He states that his breathing [...] that may raise the possibility of post NH pericarditis and may explain some of his [...] Cosigner Signature (if applicable): CC: ~ Signed [facility] Work Phone: 1(927) 559-754908-15-2025 History and physical note Author Ramonita Herron [facility] Note Date/Time December 15, 2024 3: 23pm [facility] Medical Records Department [address] [place] [address] H&P Exam - Hospitalist 12/15/24 1435 MR#: [id number] Acct: [id number] Name: ERIBERTO RICO Rep #:[id number] : 1945 79 From: Ramonita Herron MD PCP: Dr. Marycarmen Rodriguez, DO Status:ADM IN Location: [place] [id number] HPI - General General Date of Admission: 12/15/24 Date of Service: 12/15/24 Chief Complaint: Chest pain HPI Narrative ERIBERTO IRCO, is a 79-year-old male history of CKD, heart failure, coronary artery disease, COPD, recent STEMI after an in-stent thrombosis who presented [facility] ED 12/15/2024 for active chest pain. [...] are actually less swollen than usual. [facility] Medical History Recent ST elevation myocardial infarction (STEMI) Chest pain History of acute inferior wall [place] Acute ST elevation myocardial infarction (STEMI) of [...] attack) Obstructive sleep apnea Atherosclerotic heart disease [place] coronary artery w/angina pectoris Type 2 diabetes [...] History household members: spouse and none housing[place] [facility] Smoking Status: Former smoker quit date: 05/03/98 [...] 79.3 H, Lymph % (Auto) 9.7 L, [place] % (Auto) 9.9, Eos % (Auto) 0.1, Baso % (Auto) 0.2, Absolute Neuts (auto) 11.7 H, Absolute Lymphs (auto) 1.43, Nucleated RBC % 0, PT 16.8 H, INR 1.3, UANJ214.8 H*, Sodium 129 L, Potassium 4.5, Chloride [...] No acute abnormality is seen. Reading Location: [facility] Assessment & Plan Assessment/Plan (1) Chest pain: PLAN: Plan #Recurrent chest pain and elevated trop - Patient with history of coronary artery disease with recent stent and subsequent in-stent thrombosis for which she was taken back to the [facility] - He was subsequently discharged but readmitted again as a STEMI alert however heart cath at that time showed no acute process -Trop initially 1137, though this is down from 12/07 when his troponin was 7100, will trend - Cardiology on consult - Food Mobile Driver examined patient's EKG, looks similar to previous send not taken emergently to [facility] - There is concern that he could have Ric syndrome as he has a small pericardial effusion there is theoretically the risk of post NH pericarditis, cardiology to initiate colchicine -NSAIDs to [...] 78 Minutes Charges/Coding Visit Charges Inpatient E&M: 87315 Init Hosp L3 12/15/24 1523 <Electronically signed by Ramonita Herron MD> Cosigner Signature (if applicable): CC: Dr. Marycarmen Rodriguez, DO; Dr. Ramonita Herron MD~ Signed [facility] Work Phone: 1(486) 837-185608-15-2025 Consult note Author Sunil [facility] Note Date/Time December 15, 2024 2: 19pm 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 Qualified Code(s): E11.9 - Type 2 [...] mellitus, and remote history of TIA [facility] Medical History Recent ST elevation myocardial infarction (STEMI) Chest pain History of acute inferior wall NH Acute ST elevation myocardial infarction (STEMI) of [...] attack) Obstructive sleep apnea Atherosclerotic heart disease [place] coronary artery w/angina pectoris Type 2 diabetes [...] History household members: spouse and none housing[place] [facility] Smoking Status: Former smoker quit date: 05/03/98 [...] 79.3 H, Lymph % (Auto) 9.7 L, [place] % (Auto) 9.9, Eos % (Auto) 0.1, [...] 79.3 H, Lymph % (Auto) 9.7 L, [place] % (Auto) 9.9, Eos % (Auto) 0.1, [...] No acute abnormality is seen. Reading Location: [facility] Risk Score for UA/STEMI Assesmment (YES = 1) Risk Stratification Applicable: No 12/15/24 1419 <Electronically signed by Sunil Faye MD> Cosigner Signature (if applicable): CC: Dr. Marycarmen Rodriguez, DO~ Signed [facility] Work Phone: 1(382) 811-434808-15-2025 Discharge summary Author Payal Weldon [facility] Note Date/Time December 15, 2024 1: 39pm [facility] Medical Records Department [address] [place] [address] Emergency Department Summary 12/15/24 MR#: [id number] Acct: [id number] Name: ERIBERTO RICO Rep #:[id number] : 1945 79 From: Payal Weldon DO PCP: Dr. Marycarmen Rodriguez, DO Status:REG ER [...] moderately. Denies any leg edema, fevers, cough. [facility] Medical History Recent ST elevation myocardial infarction (STEMI) Chest pain History of acute inferior wall [place] Acute ST elevation myocardial infarction (STEMI) of [...] attack) Obstructive sleep apnea Atherosclerotic heart disease [place] coronary artery w/angina pectoris Type 2 diabetes [...] History household members: spouse and none housing: [place] [facility] Smoking Status: Former smoker quit date: 05/03/98 [...] room air. EKG showing ventricular rate 98, ME 186, QTc 357. Left axis deviation. Compared [...] Spoke with the hospitalist, Ramonita Herron to [employer] to patient with further workup and admission [...] 79.3 H Lymph % (Auto) 9.7 L [place] % (Auto) 9.9 Eos % (Auto) 0.1 [...] No acute abnormality is seen. [facility]-ray independently interpreted myself showing cardiomegaly. Largely unchanged from previous compared on 12/07/2024 EKG Initial EKG: Attestation: I personally reviewed and interpreted this EKG as follows: Interpretation: Sinus Rhythm Comments: EKG independently interpreted by myself showing evidence of normal sinus rhythm. Ventricular rate 98, ME 186, QTc 357. Left axis deviation. Compared to previous EKG on 12/07/2024 ST elevation in lead III largely unchanged. Concerned that there may be slightly more elevation in lead II and V6 compared to 12/07 concerning for new ischemia. STEMI alert activated. Prior EKG tracings: available for review (12/07/24) Management Discussion w/another healthcare provider: Hospitalist and Press [employer] Discharge Plan Dx/Rx/DC Orders Clinical Impression: Chest pain Disposition Disposition: Acute Care Hospital [facility] What to do if you have Problems For any increased pain, shortness of breath, bleeding, nausea or vomiting, chestpain, or any unexpected problems, contact your Primary Care Provider. Call [facility] ([phone]) or report to the closest Emergency Room. Call 911 if necessary. 12/15/24 1339 <Electronically signed by Payal Weldon DO> Cosigner Signature (if applicable): CC: Dr. Marycramen Rodriguez DO ~ Signed [facility] Work Phone: 1(240) 950-350708-15-2025 Radiology Diagnostic study [facility]08-08-2025 Discharge summary Author Alex Sanon [facility] Note Date/Time December 08, 2024 12: 26pm [facility] Medical Records Department [address] [place] [address] Discharge Summary 12/08/24 1222 MR#: [id number] Acct: [id number] Name: ERIBERTO RICO Rep #:[id number] : 1945 79 From: Alex Sanon MD PCP: Dr. Marycarmen Rodriguez DO Status:ADM EDMUND Location: [place] [address] Providers Date of Admission: 12/07/24 Primary Care Physician: Dr. Marycarmen Rodriguez DO Reason For Visit: SHORTNESS OF BREATH. 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 [...] his ECF 2. Recent acute inferior wall NH ? This was complicated by PLV dissection [...] ? Patient was recently discharged to a prison facility plan is for patient to be [...] 74.1 H, Lymph % (Auto) 11.4 L, [place] % (Auto) 12.1 H, Eos % (Auto) [...] probability scan for pulmonary embolism. Reading Location: [id number] D/ Instructions Discharge Activity: Return to Normal Activity [...] Uncertain Cause Additional Instructions / Restrictions: The groundskeeper wanted to make sure you are taking [...] Correction Facility Charges/Coding Visit Charges Inpatient E&M: 38187 Disch Hosp >30min 12/08/24 1226 <Electronically signed by Alex Sanon MD> Cosigner Signature (if applicable): CC: Dr. Alex Sanon MD; Dr. Marycarmen Rodriguez DO~ Signed [facility] Work Phone: 1(181) 206-785808-08-2025 [facility]08-08-2025 Nuclear medicine Diagnostic study [facility]08-08-2025 Progress note Author Alex Sanon [facility] Note Date/Time December 08, 2024 9:[address] [facility] Medical Records Department [address] [place] [address] Progress Note - Hospitalist 12/08/24 0734 MR#: [id number] Acct: [id number] Name: ERIBERTO RICO Rep #:[id number] : 1945 79 From: Alex Sanon MD PCP: Dr. Marycarmen Rodriguez DO Status:ADM EDMUND Location: [place] [address] Subjective Subjective Patient is a 79-year-old gentleman with recent history of acute inferior STEMI which was complicated by distal PLV dissection who was discharged to a prison facility brought back with shortness of breath. [...] 79.0 H, Lymph % (Auto) 7.9 L, [place] % (Auto) 11.5 H, Eos % (Auto) [...] acute cardiopulmonary process Reading Location: [facility] Physical Exam Narrative GENERAL: cooperative HEENT: Atraumatic; [...] PLV dissection who was discharged to a prison facility brought back with shortness of breath. Patient was found to have elevated D-dimer admitted to monitored bed VQ scan ordered for subsequent evaluation 1. Exertional dyspnea ? Patient was found to have elevated D-dimer admitted to monitored bed VQ scan ordered for subsequent evaluation 2. Recent acute inferior wall NH ? This was complicated by PLV dissection [...] ? Patient was recently discharged to a prison facility plan is for patient to be [...] Subcu heparin Charges/Coding Visit Charges Inpatient E&M: 37819 Subs Hosp L2 12/08/24 0921 <Electronically signed by Alex Sanon MD> Cosigner Signature (if applicable): CC: ~ Signed [facility] Work Phone: [phone]) 782-889508-07-2025 History and physical note Author Shaan Santos [facility] Note Date/Time December 07, 2024 4:[address] [facility] Medical Records Department [address] [place] [address] [place] [address] H&P Exam - Hospitalist 12/07/24 1633 MR#: [id number] Acct: [id number] Name: ERIBERTO RICO Rep #:[id number] : 1945 79 From: Shaan Santos DO PCP: Dr. Marycarmen Rodriguez, DO Status:ADM EDMUND Location: [place] [address] HPI - General General Date of Service: [...] on room air and breathing comfortably. [facility] Medical History Anxiety Depression Diabetes Kidney disease [...] attack) Obstructive sleep apnea Atherosclerotic heart disease [place] coronary artery w/angina pectoris Type 2 diabetes [...] History household members: spouse and none housing: [facility] Smoking Status: Former smoker quit date: 05/03/98 [...] 79.0 H, Lymph % (Auto) 7.9 L, [place] % (Auto) 11.5 H, Eos % (Auto) [...] IMPRESSION: No acute cardiopulmonary process Reading Location: [id number] Assessment & Plan Assessment/Plan (1) Shortness of [...] at bedside. Charges/Coding Visit Charges Inpatient E&M: 79622 Init Hosp L3 12/07/24 1647 <Electronically signed by Shaan Santos DO> Cosigner Signature (if applicable): CC: Dr. Shaan Santos DO; Dr. Marycarmen Rodriguez DO~ Signed [facility] Work Phone: [phone]) 213-737708-07-2025 Radiology Diagnostic study [facility]08-06-2025 Consult note Author Cyndie Frye [facility] Note Date/Time December 06, 2024 12: 22pm [facility] Medical Records Department [address] [place] [address] Counseling Note - Pharmacy 12/06/24 1222 MR#: [id number] Acct: [id number] Name: ERIBERTO RICO Rep #:[id number] : 1945 79 From: Cyndie Frye PCP: Dr. Marycarmen Rodriguez DO Status:ADM IN Y Location: [place] [address] Pharmacy [place] Med Reconciliation Pharmacy Service has performed discharge [...] Signature (if applicable): Date CC: ~ Signed [facility] Work Phone: 1(850) 832-617108-06-2025 Hospital Discharge instructionsAdditional Instructions Date of Discharge: 12/06/24[facility] Work Phone: 1(359) 849-886308-06-2025 Discharge summary Author Alex Sanon [facility] Note Date/Time December 06, 2024 11: 59am [facility] Medical Records Department [address] [place] [address] Transfer to [facility] MR#: [id number] Acct: [id number] Name: ERIBERTO RICO Rep #:[id number] : 1945 79 From: Alex Sanon MD PCP: Dr. Marycarmen Rodriguez, DO Status:ADM IN Certification of patient admission REQUIRED AT TIME OF ADMISSION. I CERTIFY THAT POST-HOSPITAL ECF SERVICES ARE REQUIRED TO BE GIVEN ON AN IN-PATIENT BASIS BECAUSE OF THE ABOVE NAMED PATIENT'S NEED FOR SENIOR LIVING CARE ON A CONTINUING BASIS FOR THE CONDITION(S) FOR WHICH HE/SHE WAS RECEIVING IN-PATIENT HOSPITAL SERVICES PRIOR TO HIS/HER TRANSFER TO THE [facility]. 12/06/24 1159<Electronically signed by Alex Sanon MD> [...] 1. Recent history of acute inferior wall NH with persistent EKG changes; episode of ventricular [...] Requested for PT OT eval and social work case manager to assist with discharge planning ? 12/06/2024 plan is for patient to be discharged to a prison facility pending bed availability as well as [...] Order can be placed): Correction Facility 12/06/24 1159 <Electronically signed by Alex Sanon MD> Cosigner Signature (if applicable): CC: Dr. Abraham Ridley DO; Dr. Mickey Simpson MD; Dr. Marycarmen Rodriguez DO;Dr. Ramonita Herron MD ~ [facility] Work Phone: [phone] Discharge [facility] Note Date/Time December 06, 2024 11: 55am [facility] Medical Records Department [address] [place] [address] Transfer to [facility] MR#: [id number] Acct: [id number] Name: ERIBERTO RICO Rep #:[id number] : 1945 79 From: Alex Sanon MD PCP: Dr. Marycarmen Rodriguez DO Status:ADM IN Certification of patient admission REQUIRED AT TIME OF ADMISSION. I CERTIFY THAT POST-HOSPITAL ECF SERVICES ARE REQUIRED TO BE GIVEN ON AN IN-PATIENT BASIS BECAUSE OF THE ABOVE NAMED PATIENT'S NEED FOR SENIOR LIVING CARE ON A CONTINUING BASIS FOR THE [...] 1. Recent history of acute inferior wall NH with persistent EKG changes; episode of ventricular [...] Requested for PT OT eval and social work case manager to assist with discharge planning ? 12/06/2024 plan is for patient to be discharged to a prison facility pending bed availability as well as [...] Primary Care Provider: Marycarmen Rodriguez Consulting Providers: bAraham Ridley; Mickey Simpson; Ramonita Herron Discharge Orders/Prescriptions [...] Order can be placed): Correction Facility 12/06/24 3175 <Electronically signed by Alex Sanon MD> Cosigner Signature (if applicable): CC: Dr. Abraham Ridley DO; Dr. Mickey Simpson MD; Dr. Marycarmen Rodriguez DO;Dr. Ramonita Herron MD ~ [facility] Work Phone: 1(170) 480-382808-06-2025 Discharge summary Author Alex Sanon [facility] Note Date/Time December 06, 2024 11: 53am [facility] Medical Records Department [address] [place] [address] Discharge Summary 12/06/24 1146 MR#: [id number] Acct: [id number] Name: ERIBERTO RICO Rep #:[id number] : 1945 79 From: Alex Sanon MD PCP: Dr. Marycarmen Rodriguez DO Status:ADM IN Location: [facility] [id number] Providers Date of Admission: 12/03/24 Date of [...] 1. Recent history of acute inferior wall NH with persistent EKG changes; episode of ventricular [...] Requested for PT OT eval and social work case manager to assist with discharge planning ? 12/06/2024 plan is for patient to be discharged to a prison facility pending bed availability as well as [...] 72.7 H, Lymph % (Auto) 11.6 L, [place] % (Auto) 12.9 H, Eos % (Auto) [...] Correction Facility Charges/Coding Visit Charges Inpatient E&M: 52108 Disch Hosp >30min 12/06/24 1153 <Electronically signed by Alex Sanon MD> Cosigner Signature (if applicable): CC: Dr. Alex Sanon MD; Dr. Marycarmen Rodriguez DO~ Signed [facility] Work Phone: [phone]) [phone] [facility]08-06-2025 Progress note Author Alex Sanon [facility] Note Date/Time December 06, 2024 8:[address] [facility] Medical Records Department [address] [place] [address] Progress Note - Hospitalist 12/06/24 0838 MR#: [id number] Acct: [id number] Name: ERIBERTO RICO Rep #:[id number] : 1945 79 From: Alex Sanon MD PCP: Dr. Marycarmen Rodriguez DO Status:ADM IN Location: [place] [address] Reason for Visit Chief Complaint: Chest Pain with STEMI alert. Subjective Subjective Patient seen remains physically deconditioned. Was seen in consultation by physical therapy recommendation is for patient to be discharged to a prison facility case management subsequently consulted Objective Data [...] 72.7 H, Lymph % (Auto) 11.6 L, [place] % (Auto) 12.9 H, Eos % (Auto) [...] 1. Recent history of acute inferior wall NH with persistent EKG changes; episode of ventricular [...] Requested for PT OT eval and social work case manager to assist with discharge planning ? 12/06/2024 plan is for patient to be discharged to a prison facility pending bed availability as well as insurance precertification Time spent in the patient's overall evaluation,decision-making process, review of diagnostic data, adjustment of management, discussion with other providers, nursing nursing and ancillary staff involved in patient's care documentation, 36 Minutes Charges/Coding Visit Charges Inpatient E&M: 88080 [facility] Hosp L2 Date medically ready for discharge: 12/06/24 Reason for DC delay: Precert pending from insurance 12/06/24 0840 <Electronically signed by Alex Sanon MD> Cosigner Signature (if applicable): CC: ~ Signed [facility] Work Phone: 1(847) 894-412708-06-2025 Progress note Author Marcin Araujo [facility] Note Date/Time December 06, 2024 7:[address] [facility] Medical Records Department [address] [place] [address] Progress Note - Cardiology 12/06/24 0747 MR#: [id number] Acct: [id number] Name: ERIBERTO RICO Rep #:[id number] : 1945 79 From: Marcin Araujo MD PCP: Dr. Marycarmen Rodriguez, DO Status:ADM IN Location: [place] [address] Subjective Subjective Patient seen and evaluated. Appears [...] 72.7 H, Lymph % (Auto) 11.6 L, [place] % (Auto) 12.9 H, Eos % (Auto) [...] 72.7 H, Lymph % (Auto) 11.6 L, [place] % (Auto) 12.9 H, Eos % (Auto) [...] Assessment/Plan (1) History of acute inferior wall NH: PLAN: Patient underwent cardiac catheterization and the [...] Cosigner Signature (if applicable): CC: ~ Signed [facility] Work Phone: 1(993) 674-336608-05-2025 Progress note Author Alex Sanon [facility] Note Date/Time December 05, 2024 10: 29am [facility] Medical Records Department [address] [place] [address] Progress Note - Hospitalist 12/05/24 1019 MR#: [id number] Acct: [id number] Name: ERIBERTO RICO Rep #:[id number] : 1945 79 From: Alex Sanon MD PCP: Dr. Marycarmen Rodriguez, DO Status:ADM IN Location: [place] [address] Reason for Visit Chief Complaint: Chest Pain [...] 1. Recent history of acute inferior wall NH with persistent EKG changes; episode of ventricular [...] Requested for PT OT eval and social work case manager to assist with discharge planning Time spent in the patient's overall evaluation,decision-making process, review of diagnostic data, adjustment of management, discussion with other providers, nursing nursing and ancillary staff involved in patient's care documentation, 38 Minutes Charges/Coding Visit Charges Inpatient E&M: 90422 Subs Hosp L2 12/05/24 1029 <Electronically signed by Alex Sanon MD> Cosigner Signature (if applicable): CC: ~ Signed [facility] Work Phone: 1(103) 543-260208-05-2025 Progress note Author Marcin Araujo [facility] Note Date/Time December 05, 2024 7:[address] [facility] Medical Records Department [facility] [place] [address] Progress Note - Cardiology 12/05/24 0745 MR#: [id number] Acct: [id number] Name: ERIBERTO RICO Rep #:[id number] : 1945 79 From: Marcin Araujo MD PCP: Dr. Marycarmen Rodriguez, DO Status:ADM IN Location: [place] [address] Subjective Subjective Patient seen and evaluated. Doing [...] Assessment/Plan (1) History of acute inferior wall NH: PLAN: Patient underwent cardiac catheterization and the [...] Cosigner Signature (if applicable): CC: ~ Signed [facility] Work Phone: 1(528) 375-537208-04-2025 Progress note Author Abraham [facility] Note Date/Time December 04, 2024 2:[address] [facility] Medical Records Department [address] [place] [address] Progress Note - Hospitalist 12/04/24 1057 MR#: [id number] Acct: [id number] Name: ERIBERTO RICO Rep #:[id number] : 1945 79 From: Abraham inman DO PCP: Dr. Marycarmen Rodriguez, DO Status:ADM IN Location: [place] [id number]- 1 Reason for Visit Chief Complaint: Chest [...] 2300 / 2300 Balance -2090 / -3050 -2060 / -2060 Lab / Micro Data 12/04/24 [...] 73.9 H, Lymph % (Auto) 11.1 L, [place] % (Auto) 11.9 H, Eos % (Auto) [...] Patient is a 79-year-old male who presented [facility] ED on 12/02/2024 as a STEMI alert. 1. Recent history of acute inferior wall NH with persistent EKG changes; episode of ventricular [...] 35 minutes. Charges/Coding Visit Charges Inpatient E&M: 64288 Subs Hosp L2 12/04/24 1421 <Electronically signed by Abraham Ridley DO> Cosigner Signature (if applicable): CC: ~ Signed [facility] Work Phone: [phone]) [phone] Progress note Author Marcin Araujo [facility] Note Date/Time December 04, 2024 8:5 2am [facility] Medical Records Department [address] [place] [address] Progress Note - Cardiology 12/04/24724 MR#: [id number] Acct: [id number] Name: ERIBERTO RICO Rep #:[id number] : 1945 79 From: Marcin Araujo MD PCP: Dr. Marycarmen Rodriguez, DO Status:ADM IN Location: [place] [address] Subjective Subjective Patient seen and evaluated. Sleeping. [...] Clarity Clear, Urine pH 6.0, Ur Specific [place] 1.015, Urine Protein 15 H, Urine Glucose [...] 75.5 H, Lymph % (Auto) 10.5 L, [place] % (Auto) 11.4 H, Eos % (Auto) [...] 73.9 H, Lymph % (Auto) 11.1 L, [place] % (Auto) 11.9 H, Eos % (Auto) [...] Clarity Clear, Urine pH 6.0, Ur Specific [place] 1.015, Urine Protein 15 H, Urine Glucose [...] 75.5 H, Lymph % (Auto) 10.5 L, [place] % (Auto) 11.4 H, Eos % (Auto) [...] 73.9 H, Lymph % (Auto) 11.1 L, [place] % (Auto) 11.9 H, Eos % (Auto) 2.2, Baso % (Auto) 0.3, Absolute Neuts (auto) 7.1, Nucleated RBC % 0, Sodium 137, Potassium 3.1 L, Chloride 96 L, Carbon Dioxide 21.4, Anion Gap 19 H, BUN 49 H, Creatinine 2.53 H, Est GFR (MDRD) Non-Af 25 L, BUN/Creatinine Ratio 19.4, [id number] H, Calcium 9.2 Rhythm: EKG: ECHO: Stress [...] Assessment/Plan (1) History of acute inferior wall NH: PLAN: Patient underwent cardiac catheterization and the [...] Cosigner Signature (if applicable): CC: ~ Signed [facility] Work Phone: 1(661) 309-540108-04-2025 Consult note Author Marcin Araujo [facility] Note Date/Time December 04, 2024 6:[address] [facility] Medical Records Department [address] [place] [address] Consultation - Cardiology 12/03/24 1241 MR#: [id number] Acct: [id number] Name: ERIBERTO RICO Rep #:[id number] : 1945 79 From: Marcin Araujo MD PCP: Dr. Marycarmen Rodriguez, DO Status:ADM IN Location: [place] [address] Documented by User: Dr. Mickey Simpson MD 12/03/24 16:19 Assessment & Plan Assessment/Plan (1) History of acute inferior wall NH: (2) Coronary artery vasospasm: PLAN: - Patient [...] which the patient was brought into the [facility] urgent cardiac catheterization was performed via left [...] any JOSELO or ARB secondary to CKD [facility] Medical History Anemia Diabetes mellitus Chronic kidney [...] kidney disease, stage 3 Atherosclerotic heart disease [place] coronary artery w/angina pectoris Type 2 diabetes [...] 76.7 H, Lymph % (Auto) 8.9 L, [place] % (Auto) 12.7 H, Eos % (Auto) [...] Calcium 9.1, Troponin T High Sens > 23588 H* D 12/02/24 20:29: Activated Clotting Time 245 H 12/02/24 22:43: Troponin T Hi Sens 2 Hr > 73044 H* 12/03/24 01:17: Troponin T Hi Sens 4Hr > 12439 H* 12/03/24 06:14: POC Glucose 140 H 12/03/24 07:20: Urine Color Yellow, Urine Clarity Clear, Urine pH 6.0, Ur Specific [place] 1.015, Urine Protein 15 H, Urine Glucose [...] 75.5 H, Lymph % (Auto) 10.5 L, [place] % (Auto) 11.4 H, Eos % (Auto) [...] 76.7 H, Lymph % (Auto) 8.9 L, [place] % (Auto) 12.7 H, Eos % (Auto) [...] Clarity Clear, Urine pH 6.0, Ur Specific [place] 1.015, Urine Protein 15 H, Urine Glucose [...] 75.5 H, Lymph % (Auto) 10.5 L, [place] % (Auto) 11.4 H, Eos % (Auto) [...] Assessment/Plan (1) History of acute inferior wall NH: (2) Coronary artery vasospasm: (3) CHF (congestive heart failure): QUALIFIERS: Heart failure chronicity: acute on chronic Heart failure type: diastolic Qualified Code(s): I50.33 - Acute on chronic diastolic (congestive) heart failure (4) Dyslipidemia: HPI Consult Data Date of Consult: 12/04/24 [facility] Medical History Anemia Diabetes mellitus Chronic kidney [...] kidney disease, stage 3 Atherosclerotic heart disease [place] coronary artery w/angina pectoris Type 2 diabetes [...] Simpson MD; Dr. Marycarmen Rodriguez DO~ Signed [facility] Work Phone: 1(864) 701-177008-03-2025 Progress note Author Ramonita Herron [facility] Note Date/Time December 03, 2024 3:5 7pm [facility] Medical Records Department [address] [place] [address] Progress Note - Hospitalist 12/03/24 1548 MR#: [id number] Acct: [id number] Name: ERIBERTO RICO Rep #:[id number] : 1945 79 From: Ramonita Herron MD PCP: Dr. Marycarmen Rodriguez, DO Status:ADM IN Location: [place] [address] Reason for Visit Chief Complaint: Chest Pain [...] 76.7 H, Lymph % (Auto) 8.9 L, [place] % (Auto) 12.7 H, Eos % (Auto) [...] Calcium 9.1, Troponin T High Sens > 47227 H* D 12/02/24 20:29: Activated Clotting Time 245 H 12/02/24 22:43: Troponin T Hi Sens 2 Hr > 65921 H* 12/03/24 01:17: Troponin T Hi Sens 4Hr > 97737 H* 12/03/24 06:14: POC Glucose 140 H 12/03/24 07:20: Urine Color Yellow, Urine Clarity Clear, Urine pH 6.0, Ur Specific [place] 1.015, Urine Protein 15 H, Urine Glucose [...] 75.5 H, Lymph % (Auto) 10.5 L, [place] % (Auto) 11.4 H, Eos % (Auto) [...] Recent STEMI -Was emergently taken to [facility]/30 due to a STEMI. Emergent cath [...] on 12/02 and went emergently to the [facility] however no intervention was needed or warranted [...] Herron MD Charges/Coding Visit Charges Inpatient E&M: 81595 Subs Hosp L2 12/03/24 6939 <Electronically signed by Ramonita Herron MD> Cosigner Signature (if applicable): CC: ~ Signed [facility] Work Phone: 1(456) 765-224408-03-2025 History and physical note Author Alex Resendez [facility] Note Date/Time December 03, 2024 5:[address] [facility] Medical Records Department [address] [place] [address] H&P Exam - Hospitalist 12/02/242049 MR#: [id number] Acct: [id number] Name: ERIBERTO RICO Rep #:[id number] : 1945 79 From: Alex Colon DO PCP: Dr. Marycarmen Rodriguez, DO Status:ADM IN Location: [place] [id number]- 1 HPI - General General Date of Admission: 12/02/24 Date of Service: 12/02/24 Chief Complaint: Chest Pain with STEMI alert. HPI Narrative ERIBERTO BODAGER, is a 79 M with a past [...] at 2:00 PM who re- presents to 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 [...] symptoms are very similar to his previous NH's. There was no report of associated fever,chills, [...] expected to extend beyond 2 midnights. [facility] Medical History Anemia Diabetes mellitus Chronic kidney [...] kidney disease, stage 3 Atherosclerotic heart disease [place] coronary artery w/angina pectoris Type 2 diabetes [...] 76.7 H, Lymph % (Auto) 8.9 L, [place] % (Auto) 12.7 H, Eos % (Auto) [...] vasospasm: (2) History of acute inferior wall NH: (3) Leukocytosis: QUALIFIERS: Leukocytosis type: unspecified Qualified [...] wedding at 2:00 PM who re-presents to 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 Patient taken for emergent LHC by [facility] with the patient suspected to have acute coronary vasospasm with no lesion noted so patient will be managed in PCU. Continue present treatment with baby aspirin, ticagrelor and IV heparin. Give acetaminophen as needed for [id number] (level 1-5/10) pain or fever. Give morphine [...] 75 minutes. Charges/Coding Visit Charges Inpatient E&M: 45709 Init Hosp L3 12/03/24 0556 <Electronically signed by Alex Sow DO> Cosigner Signature (if applicable): CC: Dr. Alex Sow DO; Dr. Marycarmen Rodriguez DO~ Signed [facility] Work Phone: 1(302) 994-618108-02-2025 Discharge summary Author Rasheed Canela [facility] Note Date/Time December 02, 2024 8:[address] [facility] Medical Records Department [address] [place] [address] Emergency Department Summary 12/02/24 MR#: [id number] Acct: [id number] Name: ERIBERTO RICO Rep #:[id number] : [...] EKG changes consistent with a ST elevation NH. He had 3 to 4 mm of [...] Prior Similar Symptoms: Yes and With Prior NH CVD Risk Factors: Positive for Hypertension, Diabetes and Hypercholesterolemia [facility] [facility] Medical History Anemia Diabetes mellitus Chronic kidney [...] kidney disease, stage 3 Atherosclerotic heart disease [place] coronary artery w/angina pectoris Type 2 diabetes [...] was reviewed. Spoke with Dr. Simpson the traffic director. He was made aware of patient's history, EKG findings and prehospital treatment. Lab Data Attestation: I reviewed the patient's lab results. Lab results narrative: EKG was not repeated since prehospital EKG revealed ST elevation NH with reciprocal changes. CBC reveals mild anemia [...] 76.7 H Lymph % (Auto) 8.9 L [place] % (Auto) 12.7 H Eos % (Auto) [...] healthcare provider: Hospitalist (Dr. Alex Handley) and Press Feeder Broomcorn (immunologist) Critical Care Time Critical Care Time: Yes Critical care time (excluding procedures): 30-74 minutes (15), Including time spent: (History, physical, documentation, prehospital med direction, discussion with , review of prior records and independent rotation of EKG), Discussing w/Patient &/or Family/Brick Dropper (Spoke with who informing that he just left the hospital this afternoon to attend his granddaughter's wedding.), Discussing w/Consultants (immunologist and hospitalist) and Arranging Admission or Transfer Discharge Plan Dx/Rx/DC Orders Clinical Impression: Acute ST elevation myocardial infarction (STEMI) of inferior wall, Obstructive sleep apnea, Obesity, Chronic kidney disease, Diabetes mellitus, Hyperlipidemia Disposition Disposition: Acute Care Hospital [facility] What to do if you have Problems For any increased pain, shortness of breath, bleeding, nausea or vomiting, chestpain, or any unexpected problems, contact your Primary Care Provider. Call [facility] ([phone]) or report to the closest Emergency Room. Call 911 if necessary. 12/02/242052 <Electronically signed by Rasheed Canela MD> Cosigner Signature (if applicable): CC: Dr. Marycarmen Rodriguez, DO ~ Signed [facility] Work Phone: 1(965) 815-465908-02-2025 Consult note Author Jamar Tapia [facility] Note Date/Time December 02, 2024 12: 23pm [facility] Medical Records Department [address] [place] [address] Consultation - Neurology 12/02/24 1207 MR#: [id number] Acct: [id number] Name: ERIBERTO RICO Rep #:[id number] : 1945 79 From: Jamar Hooker PCP: Dr. Marycarmen Rodriguez, DO Status:ADM IN Location: [place] [id number] Assessment and Plan: Neuro Assessment/Plan ERIBERTO [...] or concerns. Stroke to sign off. [facility] Medical History (Updated 12/01/24 @ 09:47 by [...] kidney disease, stage 3 Atherosclerotic heart disease [place] coronary artery w/angina pectoris Type 2 diabetes [...] 78.9 H, Lymph % (Auto) 7.6 L, [place] % (Auto) 12.0 H, Eos % (Auto) [...] abnormality. 2. Age-related senescent changes. Reading Location: [facility] Active Medications Active Medications Active [...] mls @ 15 mls/hr 11/30/24 17:25 IV .[id number] PRN Saline Flush Sodium Chloride 250 mls @ 15 mls/hr 11/30/24 17:25 IV .[id number] PRN Additional IVPB Infusion Insulin Human Lispro 0 unit 11/30/24 22:00 12/02/24 06:30 Insulin Lispro 100 Unit/Ml Insuln.Pen SC Not Given ACHS [facility] Protocol Labetalol HCl 10 - [...] or with change in RN caregiver Freq: [id number] Protocol: Activity Type Activity Date Activity User E-sign Co-sign Detail Recorded Client Recorded Date Recorded By Document 12/01/24 20:15 [id number] 12/01/24 20:28 CD 12/01/24 20:15 [facility] Stroke [...] and with change in RN caregiver. Freq: [id number] Protocol: Activity Type Activity Date Activity User E-sign Co-sign Detail Recorded Client Recorded Date Recorded By Document 12/02/24 10:00 TSTIKA [id number] 12/02/24 10:20 TSTIKA 12/02/24 10:00 NIH Stroke [...] Hay MD; Dr. Marycarmen Rodriguez DO~ Signed [facility] Work Phone: 1(433) 278-312108-02-2025 Discharge summary Author Rasheed Canela [facility] Note Date/Time December 02, 2024 8:[address] [facility] Medical Records Department [address] [place] [address] Emergency Department Summary 12/02/24 MR#: [id number] Acct: [id number] Name: ERIBERTO RICO Rep #:[id number] : [...] EKG changes consistent with a ST elevation NH. He had 3 to 4 mm of [...] Prior Similar Symptoms: Yes and With Prior NH CVD Risk Factors: Positive for Hypertension, Diabetes and Hypercholesterolemia [facility] Medical History Anemia Diabetes mellitus Chronic [...] kidney disease, stage 3 Atherosclerotic heart disease [place] coronary artery w/angina pectoris Type 2 diabetes [...] assessment by Dr. Dickey on all [address] was reviewed. Spoke with Dr. Simpson the traffic director. He was made aware of patient's history, EKG findings and prehospital treatment. Lab Data Attestation: I reviewed the patient's lab results. Lab results narrative: EKG was not repeated since prehospital EKG revealed ST elevation NH with reciprocal changes. CBC reveals mild anemia [...] 76.7 H Lymph % (Auto) 8.9 L [place] % (Auto) 12.7 H Eos % (Auto) [...] healthcare provider: Hospitalist (Dr. Alex Handley) and Press Feeder Broomcorn (immunologist) Critical Care Time Critical Care Time: Yes Critical care time (excluding procedures): 30-74 minutes (15), Including time spent: (History, physical, documentation, prehospital med direction, discussion with , review of prior records and independent rotation of EKG), Discussing w/Patient &/or Family/Brick Dropper (Spoke with who informing that he just left the hospital this afternoon to attend his granddaughter's wedding.), Discussing w/Consultants (immunologist and hospitalist) and Arranging Admission or Transfer Discharge Plan Dx/Rx/DC Orders Clinical Impression: Acute ST elevation myocardial infarction (STEMI) of inferior wall, Obstructive sleep apnea, Obesity, Chronic kidney disease, Diabetes mellitus, Hyperlipidemia Disposition Disposition: Acute Care Hospital [facility] What to do if you have Problems For any increased pain, shortness of breath, bleeding, nausea or vomiting, chestpain, or any unexpected problems, contact your Primary Care Provider. Call [facility] ([phone]) or report to the closest Emergency Room. Call 911 if necessary. 12/02/242052 <Electronically signed by Rasheed Canela MD> Cosigner Signature (if applicable): CC: Dr. Marycarmen Rodriguez, DO ~ Signed [facility] Work Phone: 1(365) 429-512608-02-2025 Hospital Discharge instructionsAdditional Instructions 1. It is very important to not miss any doses of your ticagrelor (Brilinta) and aspirin. Please take these as prescribed with no missed doses. If you miss doses you could clot off your stents. Date of Discharge: 12/02/24[facility] Work Phone: 1(459) 223-538608-02-2025 [facility]08-01-2025 Progress note Author Abraham Ridley [facility] Note Date/Time December 01, 2024 8:2 6pm [facility] Medical Records Department [address] [place] [address] Progress Note - Hospitalist 12/01/242020 MR#: [id number] Acct: [id number] Name: ERIBERTO RICO Rep #:[id number] : 1945 79 From: Abraham inman DO PCP: Dr. Marycarmen Rodriguez, DO Status:ADM IN Location: [place] [address] Hospitalist Note Stroke alert called around 7 PM. Last known well 6:55 PM. Patient reported to [facility] PRACTICE MANAGER that he had left facial numbness and [...] Cosigner Signature (if applicable): CC: ~ Signed [facility] Work Phone: 1(180) 515-573308-01-2025 Radiology Diagnostic study [facility]08-01-2025 Progress note Author Nickie Danielson [facility] Note Date/Time December 01, 2024 3:5 0pm [facility] Medical Records Department [address] [place] [address] Progress Note - Hospitalist 12/01/2413 MR#: [id number] Acct: [id number] Name: ERIBERTO RICO Rep #:[id number] : 1945 79 From: Nickie Danielson DO PCP: Dr. Marycarmen Rodriguez DO Status:ADM IN Location: [place] [address] Reason for Visit Chief Complaint: STEMI Subjective [...] 80.9 H, Lymph % (Auto) 10.1 L, [place] % (Auto) 7.7, Eos % (Auto) 0.4, Baso % (Auto) 0.2, Absolute Neuts (auto) 15.5 H, Absolute Lymphs (auto) 1.93, Nucleated RBC % 0.1, PT 16.1 H, INR 1.3, APTT 112.9 H*, Sodium 135, Potassium 4.4, Chloride 98, Carbon Efxtuyp58.3 L, Anion Gap 19 H, BUN 45 [...] evidence of acute pulmonary disease. Reading Location: [facility] Physical Exam Const alert, oriented x3, [...] subcu heparin Charges/Coding Visit Charges Inpatient E&M: 13025 Subs Hosp L2 12/01/24 1550 <Electronically signed by Nickie Danielson DO> Cosigner Signature (if applicable): CC: ~ Signed [facility] Work Phone: 1(804) 885-975508-01-2025 Progress note Author Marcin Araujo [facility] Note Date/Time December 01, 2024 7:[address] [facility] Medical Records Department [address] [place] [address] Progress Note - Cardiology 12/01/24 0734 MR#: [id number] Acct: [id number] Name: ERIBERTO RICO Rep #:[id number] : 1945 79 From: Marcin Araujo MD PCP: Dr. Marycarmen Rodriguez, DO Status:ADM IN Location: ICU CVICU 3-1 Subjective Subjective Patient seen and evaluated. [...] 80.9 H, Lymph % (Auto) 10.1 L, [place] % (Auto) 7.7, Eos % (Auto) 0.4, Baso % (Auto) 0.2, Absolute Neuts (auto) 15.5 H, Absolute Lymphs (auto) 1.93, Nucleated RBC % 0.1, PT 16.1 H, INR 1.3, APTT 112.9 H*, Sodium 135, Potassium 4.4, Chloride 98, Carbon Jwvnxjc12.3 L, Anion Gap 19 H, BUN 45 [...] 80.9 H, Lymph % (Auto) 10.1 L, [place] % (Auto) 7.7, Eos % (Auto) 0.4, [...] evidence of acute pulmonary disease. Reading Location: [facility] Physical Exam Const alert, oriented x3 [...] Cosigner Signature (if applicable): CC: ~ Signed [facility] Work Phone: 1(219) 945-284507-31-2025 Discharge summary Author Isael Bernabe [facility] Note Date/Time November 30, 2024 9:35 pm [facility] Medical Records Department [address] [place] [address] Emergency Department Summary 11/30/24 MR#: [id number] Acct: [id number] Name: ERIBERTO RICO Rep #:[id number] : [...] was sent, they administeredaspirin, Brilinta, and heparin. [facility] Medical History Diabetes mellitus Chronic kidney [...] kidney disease, stage 3 Atherosclerotic heart disease [place] coronary artery w/angina pectoris Type 2 diabetes [...] laboratory work that was requested by the [facility]. Does not have elevation of his white [...] 80.9 H Lymph % (Auto) 10.1 L [place] % (Auto) 7.7 Eos % (Auto) 0.4 [...] myocardial infarction Disposition Disposition: Acute Care Hospital [facility] Discharge Date/Time: 11/30/24 15:21 What to do if you have Problems For any increased pain, shortness of breath, bleeding, nausea or vomiting, chestpain, or any unexpected problems, contact your Primary Care Provider. Call [facility] ([phone]) or report to the closest Emergency Room. Call 911 if necessary. 11/30/242134 <Electronically signed by Isael Bernabe MD> Cosigner Signature (if applicable): CC: Dr. Marycarmen Rodriguez, ~ Signed [facility] Work Phone: 1(607) 508-603207-31-2025 Progress note Author Isael Montesbethesda hospitalkira [facility] Note Date/Time November 30, 2024 9:[address] [facility] Medical Records Department [address] [place] [address] Quality Report 11/30/24 1605 MR#: [id number] Acct: [id number] Name: ERIBERTO RICO Rep #:[id number] : [...] applicable): Date Donald Bill CC: ~ Signed [facility] Work Phone: 1(280) 369-237207-31-2025 History and physical note Author Abraham Ridley [facility] Note Date/Time November 30, 2024 9:[address] [facility] Medical Records Department [address] [place] [address] H&P Exam - Hospitalist 11/30/24 1705 MR#: [id number] Acct: [id number] Name: ERIBERTO RICO Rep #:[id number] : 1945 79 From: Abraham inman DO PCP: Dr. Marycarmen Rodriguez, DO Status:ADM IN Location: ICU CVICU20 3-1 HPI - General General Date of Admission: 11/30/24 Date of Service: 11/30/24 Chief Complaint: STEMI HPI Narrative ERIBERTO RICO, is a 79 M who presented to [facility] on 11/30/2024 as a STEMI alert. Follows with [place] [facility]ology with complex CAD history, see office [...] STEMI. He was taken emergently to the [facility] and coronary angiography revealed a subacute stent [...] air. No other acute concerns currently. [facility] Medical History Diabetes mellitus Chronic kidney disease [...] kidney disease, stage 3 Atherosclerotic heart disease [place] coronary artery w/angina pectoris Type 2 diabetes [...] 80.9 H, Lymph % (Auto) 10.1 L, [place] % (Auto) 7.7, Eos % (Auto) 0.4, [...] Patient is a 79-year-old male who presented [facility] ED on 11/30/2024 as a STEMI [...] with hyperglycemia: Blood glucose 328 on admit. LpwiN5c from 2022 was 7.7%. Repeat A1c ordered. [...] 75 minutes. Charges/Coding Visit Charges Inpatient E&M: 10922 Init Hosp L3 11/30/242129 <Electronically signed by Abraham Ridley DO> Cosigner Signature (if applicable): CC: Dr. Abraham Ridley DO; Dr. Marycarmen Rodriguez DO~ Signed [facility] Work Phone: 1([phone]) 953-168907-31-2025 Radiology Diagnostic study [facility]2025 Consult note Author Jose Hay [facility] Note Date/Time November 30, 2024 4:51 pm [facility] Medical Records Department [address] [place] [address] Consultation - Cardiology 11/30/24 1642 MR#: [id number] Acct: [id number] Name: ERIBERTO RICO Rep #:[id number] : [...] Subsequently a STEMI alert was called. [facility] Medical History (Updated 11/30/24 @ 16:48 by [...] kidney disease, stage 3 Atherosclerotic heart disease [place] coronary artery w/angina pectoris Type 2 diabetes [...] 80.9 H, Lymph % (Auto) 10.1 L, [place] % (Auto) 7.7, Eos % (Auto) 0.4, [...] 80.9 H, Lymph % (Auto) 10.1 L, [place] % (Auto) 7.7, Eos % (Auto) 0.4, [...] Hay MD; Dr. Marycarmen Rodriguez, DO~ Signed [facility] Work Phone: 1(668) 102-437807-29-2025 Consult note Author Cyndie Frye [facility] Note Date/Time November 28, 2024 12:[address] [facility] Medical Records Department [address] [place] [address] Counseling Note - Pharmacy 11/28/24 0920 MR#: [id number] Acct: [id number] Name: ERIBERTO RICO Rep #:[id number] : 1945 79 From: Cyndie Frye PCP: Dr. Marycarmen Rodriguez, Status:ADM EDMUND Y Location: [place] [address] Pharmacy [place] Med Reconciliation Pharmacy Service has performed discharge [...] Signature (if applicable): Date CC: ~ Signed [facility] Work Phone: 1([phone]) 814-618807-28-2025 Discharge summary Author Jose Hay [facility] Note Date/Time November 27, 2024 11:[address] [facility] Medical Records Department [address] [place] [address] Instructions for Home/Discharge Instructions 11/27/24 1128 MR#: [id number] Acct: [id number] Name: ERIBERTO RICO Rep #:[id number] : 1945 79 From: Jose Hay MD PCP: Dr. Marycarmen Rodriguez, Status:REG SDC Discharge Instructions DC O2, CPAP, [...] Care Provider: Marycarmen Rodriguez Instructions Print Language: Israeli Discharge Orders/Prescriptions Prescriptions: New furosemide 80 mg [...] CC: Dr. Marycarmen Rodriguez DO ~ Signed [facility] Work Phone: 1(212) 169-728007-27-2025 Radiology Diagnostic study [facility]07-27-2025 Radiology Diagnostic study [facility]07-27-2025 Radiology Diagnostic study [facility] 11-26-2024 Radiology Diagnostic study [facility]07-27-2025 Radiology Diagnostic study [facility]07-27-2025 Radiology Diagnostic study [facility]07-27-2025 Discharge summary Author Isael Bernabe [facility] Note Date/Time November 26, 2024 9:41 pm [facility] Medical Records Department [address] [place] [address] Emergency Department Summary 11/26/24 MR#: [id number] Acct: [id number] Name: ERIBERTO RICO Rep #:[id number] : [...] an outpatient tomorrow. He was at a [employer] today, walking down the steps of a [...] presents status post fall with chest heaviness. [facility] Medical History Shortness of breath Unstable angina [...] kidney disease, stage 3 Atherosclerotic heart disease [place] coronary artery w/angina pectoris Type 2 diabetes [...] cleansed and dressed. He was given 1 Lolita which he usually takes at home for pain. He was able to ambulate without difficulty. At this point in time, he is motivated for discharge. I do not feel that he requires admission at this time or observation. I feel he can be discharged to follow-upwith his cardiac catheterization tomorrow morning. Patient will continue his Lolita at home and follow-up as previously directed. [...] 71.8 H Lymph % (Auto) 16.7 L [place] % (Auto) 9.5 Eos % (Auto) 1.3 [...] IMPRESSION: No acute intracranial process. Reading Location: [facility] Cervical Spine CT 11/26/24 18:03 IMPRESSION: No acute compression deformity, fracture, or subluxation. Moderate multilevel degenerative changes of the cervical spine. Cervical ACDF with interbody spacers spanning C4-C6 without hardware complications. Reading Location: [facility] Chest X-Ray 11/26/24 18:03 IMPRESSION: Negative for edema Reading Location: [facility] Knee X-Ray 11/26/24 18:03 IMPRESSION: Degenerative changes without fracture Reading Location: [facility] Hand X-Ray 11/26/24 18:07 IMPRESSION: Degenerative changes. No visible fracture. Reading Location: [facility] Knee X-Ray 11/26/24 18:07 IMPRESSION: Joint effusion Reading Location: [facility] Management Discussion w/another healthcare provider: [employer]room[employer] (Dr. Araujo) Discharge Plan Triage Chief Complaint: [...] Care Provider: Marycarmen Rodriguez Referrals: Marycarmen Rodriguez, [Primary Care Provider] - 3-5 Days if not improving Activity Restrictions/Additional Instructions: Have your cardiac catheterization performed tomorrow as scheduled at 8:30 in [facility]. Return with new or worsening symptoms. Print Language: Israeli Disposition Disposition: Home, Self Care What to do if you have Problems For any increased pain, shortness of breath, bleeding, nausea or vomiting, chestpain, or any unexpected problems, contact your Primary Care Provider. Call [facility] ([phone]) or report to the closest Emergency Room. Call 911 if necessary. 11/26/24 3705 <Electronically signed by Isael Bernabe MD> Cosigner Signature (if applicable): CC: Dr. Marycarmen Rodriguez, DO ~ Signed [facility] Work Phone: [phone]) [phone] Hospital Discharge instructionsAdditional Instructions Have your cardiac catheterization performed tomorrow as scheduled at 8:30 in the morning. Return with new or worsening symptoms.[facility] Work Phone: 1(501) 105-118707-24-2025 Radiology Diagnostic study [facility]07-21-2025 Radiology Diagnostic study [facility]05-21-2025 Evaluation note* Diagnosis Onset Date Resolution Status Admit Date COPD (chronic obstructive pulmonary disease) chronic September 20 10:13am Diastolic heart failure chronic [facility] 2024 10:13am Obesity chronic September 20, 2024 10:13am Obstructive sleep apnea chronic [facility] 2024 10:13am Shortness of breath acute October 25, 2024 7:54am Bilateral lower extremity edema 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 [place] October 25, 2024 7:54am Chest pain chronic October 25 7:54am Chronic kidney disease, stage 3 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 [place] October 25, 2024 7:54am Coronary artery [...] Obstructive sleep apnea chronic J shannon2024 10:00am [facility] Work Phone: 1(796) 748-908505-21-2025 Evaluation note* Diagnosis Onset Date Resolution Status Admit Date COPD (chronic obstructive pulmonary disease) chronic September 20 10:13am Diastolic heart failure chronic M ay 2024 10:13am Obesity chronic September 20, 2024 10:13am Obstructive sleep apnea chronic [facility] 2024 10:13am Shortness of breath acute October 25, 2024 7:54am Bilateral lower extremity edema 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 [place] October 25, 2024 7:54am Chest pain chronic October 25 7:54am Chronic kidney disease, stage 3 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 [place] October 25, 2024 7:54am Coronary artery [...] 22, 2024 10:53am Bilateral lower extremity edema 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 [place] November 22, 2024 10:53am Chest pain chronic November 22 10:53am Chronic kidney disease, stage 3 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 [place] November 22, 2024 10:53am Essential hypertension chronic [facility] 2024 10:53am Hyperlipidemia chronic November 22, 2024 10:53am Obesity chronic November 22 10:53am Type 2 diabetes mellitus wit hout complications chronic November 22, 2024 10:53am [facility] Work Phone: 1(343) 356-608405-21-2025 Evaluation note* Diagnosis Onset Date Resolution Status Admit Date COPD (chronic obstructive pulmonary disease) chronic September 20 10:13am Diastolic heart failure chronic M ay 2024 10:13am Obesity chronic September 20, 2024 10:13am Obstructive sleep apnea chronic M ay 2024 10:13am Shortness of breath acute October 25, 2024 7:54am Bilateral lower extremity edema 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 [place] October 25, 2024 7:54am Chest pain chronic October 25 7:54am Chronic kidney disease, stage 3 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 [place] October 25, 2024 7:54am Coronary artery [...] 22, 2024 10:53am Bilateral lower extremity edema 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 [place] November 22, 2024 10:53am Chest pain chronic November 22 10:53am Chronic kidney disease, stage 3 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 [place] November 22, 2024 10:53am Essential hypertension [...] 2024 4:59pm Chronic kidney disease, stage 3 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 November 30, 2024 4:59pm Coronary artery disease chronic J shannon 2024 4:59pm Dyslipidemia chronic November 30, 2 025 4:59pm Essential hypertension chronic Ju [place] 2024 4:59pm [facility] Work Phone: 1(476) 322-179805-21-2025 Evaluation note* Diagnosis Onset Date Resolution Status Admit Date COPD (chronic obstructive pulmonary disease) chronic September 20 10:13am Diastolic heart failure chronic M ay 2024 10:13am Obesity chronic September 20, 2024 10:13am Obstructive sleep apnea chronic [facility] 2024 10:13am Shortness of breath acute [...] Essential hypertension chronic Ju ly 2024 4:59pm [facility] Work Phone: 1(486) 356-647905-21-2025 Evaluation note* Diagnosis Onset Date Resolution Status [...] sleep apnea chronic A ugust 2024 8:29pm [facility] Work Phone: 1([phone]) 268-442505-21-2025 Evaluation note* Diagnosis Onset Date Resolution Status [...] 2024 2:01am History of acute inferior wall NH acute December 03, 2024 2:01am Hyponatremia acute [...] 2:01am Dyslipidemia inactive December 03, 2024 2:01am [facility] Work Phone: 1(536) 546-520505-21-2025 Evaluation note* Diagnosis Onset Date Resolution Status [...] 30, 025 4:58pm Essential hypertension inactive Ju [place] 2024 4:58pm Chronic kidney disease, stag e 3 deleted November 30, 2024 4:58pm Acute ST elevation myocardia l infarction (STEMI) of inferior wall acute December 03, 2024 2:01am Coronary artery vasospasm acute December 03, 2024 2:01am History of acute inferior wall NH acute December 03, 2024 2:01am Hyponatremia acute [...] 4:24pm Shortness of breath acute 2024 4:24pm [facility] Work Phone: 1(128) 278-458305-21-2025 Evaluation note* Diagnosis Onset Date Resolution Status [...] 2024 2:01am History of acute inferior wall NH acute December 03, 2024 2:01am Hyponatremia acute [...] 4:24pm Shortness of breath acute 2024 4:24pm [facility] Work Phone: 1(167) 581-640705-21-2025 Evaluation note* Diagnosis Onset Date Resolution Status Admit Date COPD (chronic obstructive pulmonary disease) chronic September 20 10:13am Diastolic heart failure chronic 2024 10:13am Obesity chronic September 20, 2024 10:13am Obstructive sleep apnea chronic [facility] 2024 10:13am Bilateral lower extremity edema chronic [...] 2024 2:01am History of acute inferior wall NH inactive December 03, 2024 2:01am DEAN (dyspnea [...] stag e 3 deleted December 12 10:14am [facility] Work Phone: 1(654) 573-231405-21-2025 Evaluation note* Diagnosis Onset Date Resolution Status [...] 2024 2:01am History of acute inferior wall NH inactive December 03, 2024 2:01am Shortness of [...] Chest pain resolved December 12 025 10:14am Chronic kidney disease, stage 3 [...] diabetes mellitus without complications chronic December 2:35pm [facility] Work Phone: 1(262) 753-494505-21-2025 Evaluation note* Diagnosis Onset Date Resolution Status Admit Date COPD (chronic obstructive pulmonary disease) inactive September 20 10:13am Diastolic heart failure inactive [facility] 2024 10:13am Obesity inactive September 20, 2024 10:13am Obstructive sleep apnea inactive [facility] 2024 10:13am Chest pain resolved October 25 7:54am Bilateral lower extremity edema inactive October 25, 2024 7:54am Coronary artery disease inactive 2024 7:54am Essential hypertension inactive 2024 7:54am Hyperlipidemia inactive October 25, 2024 7:54am Obesity inactive October 25 7:54am Shortness of breath inactive October 25, 2024 7:54am Type 2 diabetes mellitus without complications inactive October 25, 2024 7:54am Chronic kidney disease, stage 3 deleted October 25, 2024 7:54am Asthma inactive October 31, 2024 10:00am Central sleep apnea inactive October 31, 2024 10:00am COPD (chronic obstructive pulmonary disease) inactive October 31 10:00am Diastolic heart failure inactive J 2024 10:00am Obesity inactive October 31, 2024 10:00am Obstructive sleep apnea inactive J 2024 10:00am Chest pain resolved November 22 10:53am Bilateral lower extremity edema inactive November 22, 2024 10:53am Essential hypertension inactive Ju ly 2024 10:53am Hyperlipidemia inactive November 22, 2024 10:53am Obesity inactive November 22 10:53am Presence of stent in coronary artery Aug, 2022 inactive November 22, 2024 10:53am Shortness of breath inactive November 22, 2024 10:53am Type 2 diabetes mellitus without complications inactive November 22, 2024 10:53am Chronic kidney disease, stage 3 deleted November 22, 2024 10:53am Chest pain resolved November 30 4:58pm Leukocytosis resolved November 30, 2 025 4:58pm STEMI (ST elevation myocardial infarction) November 30, 2024 resolved October 4:58pm Acute kidney injury superimposed on stage 4 chronic kidney disease inactive October 4:58pm Chronic kidney disease inactive Ju ly 2024 4:58pm Coronary artery disease inactive J shannon 2024 4:58pm Diabetes mellitus inactive November 302024 4:58pm Dyslipidemia inactive November 30, 2 025 4:58pm Essential hypertension inactive Ju ly 2024 4:58pm Chronic kidney disease, stage 3 deleted November 30, 2024 4:58pm Coronary artery vasospasm resolved December 03, 2024 2:01am Hyponatremia resolved December 03, 2024 2:01am Leukocytosis resolved December 03, 2024 2:01am Nonsustained monomorphic ventricular tachycardia resolved December 032024 2:01am STEMI (ST elevation myocardial infarction) November 30, 2024 resolved December 2:01am Acute ST elevation myocardial infarction (STEMI) of inferior wall inactive December 03, 2024 2:01am CHF (congestive heart failure) inactive December 03, 2024 2:01am Chronic kidney disease inactive 2024 2:01am CKD (chronic kidney disease) stage 4, GFR 15-29 ml/min inactive December 03, 2024 2:01am Coronary artery disease inactive A 2024 2:01am Diabetes mellitus inactive December 03, 2024 2:01am Dyslipidemia inactive December 03, 2024 2:01am History of acute inferior wall NH inactive December 03, 2024 2:01am Hyperlipidemia inactive December 2:01am Obesity inactive [employer] [facility]rd, 20 25 2:01am Obesity (BMI 30-39.9) inactive Dec 2024 2:01am Obstructive sleep apnea inactive A [facility] 2024 2:01am DEAN (dyspnea on exertion) resolved December 07, 2024 4:24pm Chest pain inactive December 07 4:24pm Recent ST elevation myocardial infarction (STEMI) inactive December 07, 2024 4:24pm Shortness of breath inactive [facility] 2024 4:24pm Chest pain resolved December 12, 025 10:14am Bilateral lower extremity edema inactive December 12 10:14am Essential hypertension inactive [facility] 2024 10:14am Hyperlipidemia inactive December 10:14am Obesity inactive December 12 10:14am Presence of stent in coronary artery Aug, 2022 inactive December 12 10:14am Shortness of breath inactive [facility] 2024 10:14am Type 2 diabetes mellitus without complications inactive December 10:14am Chronic kidney disease, stage 3 deleted December 12 10:14am Angina pectoris inactive December 152024 2:35pm Central sleep apnea inactive [facility] 2024 2:35pm Chest pain inactive December 15, 025 2:35pm CKD (chronic kidney disease) stage 4, GFR 15-29 ml/min inactive December 15, 2024 2:35pm Diastolic heart failure inactive [facility] 2024 2:35pm Essential hypertension inactive [facility] 2024 2:35pm History of percutaneous transluminal coronary angioplasty August 18, 2018 inactive December 15 2:35pm Obstructive sleep apnea inactive [facility] 2024 2:35pm Pericardial effusion inactive [facility] 2024 2:35pm Type 2 diabetes mellitus without complications inactive December 2:35pm BRBPR (bright red blood per rectum) acute December 24 1:59am Coronary artery disease acute A [facility] 2024 1:59am Diverticulosis acute December 1:59am GI (gastrointestinal bleed) acute December 24, 2024 1:59am CHF (congestive heart failure) inactive December 24 1:59am COPD (chronic obstructive pulmonary disease) inactive December 24, 2024 1:59am Hyperlipidemia inactive December 1:59am Obesity inactive December 24, 1:59am 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 Status: REG CLI Location: PSN Date: Sex: M C PSN 6 Minute Walk Test 6 Minute Walk Test 6 Minute Walk Test: 6 Minute Walk Test PSN:6-Minute Walk Test Start: 07/18/24 06:38 Freq: Status: Active Protocol: RESP.6MINW Document 07/18/24 06:00 [facility] (Rec: 07/18/24 06:47 [facility] [id number]) 6 Minute Walk Test Date Performed 07/18/24 Time Performed 06:00 Height 5 ft 9 in Weight: 230 lb Weight in Pounds 230.[address]: Marni Horn HOSPICE SOCIAL WORKER Assistive device Cane used: Pre-test Oxygen Delivery [...] Date Dictated: 07/18/24 1032 Date Transcribed: 07/18/241031 Arboriculturist: Dr. Zen East DO Signed [facility]03-03-2025 Evaluation note* Diagnosis Onset Date Resolution [...] sleep apnea chronic M ay 2024 10:13am [facility] Work Phone: 1(339) 346-347203-03-2025 Evaluation note* Diagnosis Onset Date Resolution Status Admit Date COPD (chronic obstructive pulmonary disease) July 03 1:10pm Diastolic heart failure chronic [...] 25, 2024 7:54am Bilateral lower extremity edema 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 [place] October 25, 2024 7:54am Chronic kidney disease, stage 3 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 [place] October 25, 2024 7:54am Coronary artery disease chronic J 2024 7:54am Essential hypertension chronic Ju 2024 7:54am Hyperlipidemia chronic October 25, 2024 7:54am Obesity chronic October 25 7:54am Type 2 diabetes mellitus wit hout complications chronic October 25, 2024 7:54am Chest pain inactive October 25 7:54am [facility] Work Phone: 1(355) 175-691703-03-2025 Evaluation note* Diagnosis Onset Date Resolution Status [...] 25, 2024 7:54am Bilateral lower extremity edema 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 [place] October 25, 2024 7:54am Chest pain chronic October 25 7:54am Chronic kidney disease, stage 3 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 [place] October 25, 2024 7:54am Coronary artery disease chronic J une 2024 7:54am Essential hypertension chronic Ju ne 2024 7:54am Hyperlipidemia chronic October 25, 2024 7:54am Obesity chronic October 25 7:54am Type 2 diabetes mellitus wit hout complications chronic October 25, 2024 7:54am [facility] Work Phone: 1(138) 595-258203-03-2025 Evaluation note* Diagnosis Onset Date Resolution Status Admit Date COPD (chronic obstructive pulmonary disease) chronic July 03 1:10pm Diastolic heart failure chronic arch 2024 1:10pm Obesity chronic July 03 1:10pm Obstructive sleep apnea chronic [facility] 2024 1:10pm COPD (chronic obstructive pulmonary disease) chronic September 20 10:13am Diastolic heart failure chronic ay 2024 10:13am Obesity chronic September 20, 2024 10:13am Obstructive sleep apnea chronic ay 2024 10:13am Shortness of breath acute October 25, 2024 7:54am Bilateral lower extremity edema 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 [place] October 25, 2024 7:54am Chest pain chronic October 25 7:54am Chronic kidney disease, stage 3 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 [place] October 25, 2024 7:54am Coronary artery [...] sleep apnea chronic J shannon 2024 10:00am [facility] Work Phone: 1(336) 427-3627930937-59-1875 Evaluation note* Diagnosis Onset Date Resolution Status [...] 25, 2024 7:54am Bilateral lower extremity edema 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 [place] October 25, 2024 7:54am Chest pain chronic October 25 7:54am Chronic kidney disease, stage 3 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 [place] October 25, 2024 7:54am Coronary artery [...] sleep apnea chronic J shannon 2024 10:00am [facility] Work Phone: [phone] Evaluation note* Diagnosis Onset Date Resolution Status Admit Date DEAN (dyspnea on exertion) acute April 17, 2024 3:51pm Bilateral lower extremity edema 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 [place] April 17, 2024 3:51pm Chronic kidney disease, stage 3 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 [place] April 17, 2024 3:51pm Coronary artery [...] sleep apnea chronic M arch 2024 1:10pm [facility] Work Phone: 1(542) 943-371311-18-2024 Evaluation note* Diagnosis Onset Date Resolution Status Admit Date Bilateral lower extremity edema 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 [place] March 20, 2024 10:31am Chronic kidney disease, stage 3 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 [place] March 20, 2024 10:31am Coronary artery disease chronic N ovember 2023 10:31am Essential hypertension chronic No vember 2023 10:31am Hyperlipidemia chronic March 032023 10:31am Obesity chronic March 20, 2024 10:31am Type 2 diabetes mellitus without complications chronic March 032023 10:31am DEAN (dyspnea on exertion) acute April 17, 2024 3:51pm Bilateral lower extremity edema 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 [place] April 17, 2024 3:51pm Chronic kidney disease, stage 3 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 [place] April 17, 2024 3:51pm Coronary artery [...] sleep apnea chronic M arch 2024 1:10pm [facility] Work Phone: 1(458) 909-362605-02-[address] [facility] September 01, 2022 9:55am Note Date/Time September 01, 2022 8:37am [facility] Medical Records Department [address] [place] [address] Instructions for Home/Discharge Instructions 09/01/22 0835 MR#: [id number] Acct: [id number] Name: ERIBERTO RICO Rep #:[id number] : [...] mg PO Q6H PRN PRN (Reason: Pain 1-/10) 0RF mirtazapine [Remeron] 15 mg tablet 15 [...] CC: Dr. Marycarmen Rodriguez DO ~ Signed [facility] Work Phone: 1(278) 939-762608-26-2021 Miscellaneous Notes* Assessment & Plan Note - [...] with any necessary intervention. documented in this [id number] History of Present illness Narrative* Eladio Ingram [...] patient is not nervous/anxious. documented in this [id number] Miscellaneous Notes* Assessment & Plan Note - Fernanda Acuña CNP - 10/09/2020 11:44 AM EDT Associated Problem(s): Coronary artery disease involving cloverdale coronary artery of cloverdale heart without angina pectoris Multiple previous cardiac catheterizations with intervention. Most recent cardiac caths were performed in 2018, August 03 at [place], and August 18 at [facility] in [place]. 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 The notes from the cath at [facility] indicate that they were able to get [...] intolerance, and chest pressure. documented in this [id number] History of Present illness Narrative* Fernanda Acuña CNP - 10/09/2020 11:19 AM EDT [facility] [address] [facility] [address] [facility] [id number] Assessment & Plan: Hypertension Blood pressure mildly [...] without CPAP use. Coronary artery disease involving cloverdale coronary artery of cloverdale heart without angina pectoris Multiple previous cardiac catheterizations with intervention. Most recent cardiac caths were performed in 2018, August 03 at [place], and August 18 at [facility] in [place]. 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 The notes from the cath at [facility] indicate that they were able to get [...] re-establish care. He has been following at [place] and [facility] for his cardiology care over the past 4 years. 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 Eriberto has long-standing coronary artery disease and his history is primarily obtained through records from [facility]. Eriberto is uncertain of many of the dates related to multiple tests and interventions he has had in the past 3 years. Eriberto states that he has noticed an increase in exercise intolerance over the past 3-4 weeks. 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 at [employer] this weeks and became quite short of [...] Hypertension Lower leg edema Myocardial infarction ([facility] 2009 Peripheral vascular disease (HCC) Sleep apnea Stroke ([facility]) Testicle swelling Past Surgical History: Procedure Laterality Date CARDIAC CATHETERIZATION N/A 01/04/2015 Left Heart Cath,Stent, EF 60%; Eladio Ingram [place] [facility] CARDIAC CATHETERIZATION N/A 01/28/2015 Left Heart Cath, EF 60%; Eladio Ingram MD[place] [facility] CARDIAC CATHETERIZATION N/A 06/18/2015 Left Heart Cath, Right Upper Extremity Angiogram, EF 60%; Eladio Ingram MD; [facility] CARDIAC CATHETERIZATION N/A 03/17/2016 Procedure: Left and Right Heart Cath Poss Stent; Surgeon: Eladio Ingram MD; [place] [facility]; Service: CARDIAC CATHETERIZATION 03/22/2014 EF 60% CARDIAC CATHETERIZATION 06/29/2013 EF 60% CARDIAC CATHETERIZATION 09/08/2012 EF 55% CARDIAC CATHETERIZATION 03/22/2014 EF 60% CARDIAC CATHETERIZATION Right 10/15/2016 Procedure: Left Heart Cath Possible PTCA/Stent; Surgeon: Merritt Arthur MD; [place] [facility]; Service: CHOLECYSTECTOMY CORONARY ANGIOPLASTY WITH [...] ectopy, no acute changes. 50 minutes spent [id number] with patient Follow Up Ordered: Return for [...] patient is not nervous/anxious. documented in this [id number] NotePatient Outreach (COVAMN) ERIBERTO RICO ([id number]) 1945 M Date Time Provider Department 06/25/20 PETRONA TELLES During your visit today, we recorded the following information about you: Allergies As of Date: 06/25/2020 (No Known Allergies) Date Reviewed: 08/19/2018 Reviewed by: Moise (Marcin) MARCIN Mcgraw - Fully Assessed Order(s):SARS-COVID VACCINE 1ST DOSE APPT [41990HFK] Order #: [id number] FUTURE Prescriptions as of 06/25/2020 Sig: CLOPIDOGREL [...] (HCC) [N17.9] 08/15/2018 Coronary artery disease involving cloverdale smith*08/15/2018 Stented coronary artery [Z95.5] 08/15/2018 Letter Text Encounter Status:Closed by [employer] on 06/28/20[facility] Consult note Author Jose Hay [facility] Note Date/Time November 30, 2024 4:51 pm [facility] Medical Records Department [address] [place] [address] Consultation - Cardiology 11/30/24 1642 MR#: [id number] Acct: [id number] Name: ERIBERTO RICO Rep #:[id number] : [...] Subsequently a STEMI alert was called. [facility] Medical History (Updated 11/30/24 @ 16:48 by [...] kidney disease, stage 3 Atherosclerotic heart disease cloverdale coronary artery w/angina pectoris Type 2 diabetes [...] 80.9 H, Lymph % (Auto) 10.1 L, [place] % (Auto) 7.7, Eos % (Auto) 0.4, [...] 80.9 H, Lymph % (Auto) 10.1 L, [place] % (Auto) 7.7, Eos % (Auto) 0.4, [...] Hay MD; Dr. Marycarmen Rodriguez, DO~ Signed [facility] Work Phone: Discharge summary Author Nickie Danielson [facility] Note Date/Time December 02, 2024 2:[address] [facility] Medical Records Department [address] [place] [address] Discharge Summary 12/02/24 1336 MR#: [id number] Acct: [id number] Name: ERIBERTO RICO Rep #:[id number] : 1945 79 From: Nickie Danielson DO PCP: Dr. Marycarmen Rodriguez DO Status:ADM IN [facility] Prov[facility] Date of Admission: 11/30/24 Date [...] [facility] STEMI [facility]. [...] inferior wall. He was taken emergency to [facility] and cardiac catheterization revealed subacute stent thrombosis [...] 78.9 H, Lymph % (Auto) 7.6 L, [place] % (Auto) 12.0 H, Eos % (Auto) [...] abnormality. 2. Age-related senescent changes. Reading Location: [id number] D/C Instructions Discharge Activity: Return to Normal [...] Jeffrey at discharge?: Yes Done w/ Acute NH measure.: Yes Documented LVEF (%): 50 Discharge [...] Self Care Charges/Coding Visit Charges Inpatient E&M: 83900 Disch Hosp >30min 12/02/24 1427 <Electronically signed by Nickie Danielson DO> Cosigner Signature (if applicable): CC: Dr. Jose Hay MD; Dr. Nickie Danielson DO; Dr. Marycarmen Rodriguez DO~ Signed [facility] Work Phone: Discharge summary Author Alex Sanon [facility] Note Date/Time December 08, 2024 [facility] [address] [place] [address] Transfer to Extended Care MR#: [id number] Acct: [id number] Name: ERIBERTO RICO Rep #:[id number] : 1945 79 From: Alex Sanon MD PCP: Dr. Marycarmen Rodriguez, DO Status:ADM EDMUND Certification of patient admission REQUIRED AT TIME OF ADMISSION. 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 [...] his ECF 2. Recent acute inferior wall NH ? This was complicated by PLV dissection [...] ? Patient was recently discharged to a prison facility plan is for patient to be [...] Uncertain Cause Additional Instructions / Restrictions: The groundskeeper wanted to make sure you are taking [...] Santos DO; Dr. Marycarmen Rodriguez DO ~ [facility] Work Phone: Discharge summary Author Marycarmen Marlow [facility] Note Date/Time December 17, 2024 2: 06pm [facility] Medical Records Department [address] [place] [address] [place] [address] Transfer to Extended Care MR#: [id number] Acct: [id number] Name: ERIBERTO RICO Rep #:[id number] : 1945 79 From: Marycarmen Marlow DO PCP: Dr. Marycarmen Rodriguez DO Status:ADM IN Certification of patient admission REQUIRED AT TIME OF ADMISSION. I CERTIFY THAT POST-HOSPITAL ECF SERVICES ARE REQUIRED TO BE GIVEN ON AN IN-PATIENT BASIS BECAUSE OF THE ABOVE NAMED PATIENT'S NEED FOR SENIOR LIVING CARE ON A CONTINUING BASIS FOR THE [...] multiple medical problems-patient will return to his prison facility when medically stable #9 acute protein [...] [Primary Care Provider] - Gustabo Pérez NP, HOSPICE SOCIAL WORKER-C [Med Staff - Adv Practice Prof] - [...] Herron MD; Dr. Sunil Faye MD ~ [facility] Work Phone: Evaluation note* Diagnosis Shortness of breath- [facility] Diagnosis DEAN (dyspnea on exertion)- Primary Other dyspnea and respiratory abnormality [facility] Diagnosis DEAN (dyspnea on exertion) Other dyspnea and respiratory abnormality Essential hypertension Unspecified essential hypertension Type 2 diabetes mellitus without complication, without long-term current use of insulin (HCC) MATTHEW (obstructive sleep apnea) Obstructive sleep apnea (adult) (pediatric) Coronary artery disease involving cloverdale coronary artery of cloverdale heart without angina pectoris [facility] Diagnosis Shortness of breath [facility] Diagnosis Essential hypertension- Primary Unspecified essential hypertension 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, unspecified whether cloverdale or transplanted heart (HCC) Mixed hyperlipidemia [facility] Diagnosis Chest pain, unspecified type- [facility] Diagnosis Coronary artery disease involving cloverdale coronary artery of [place] heart with angina pectoris (HCC)- [facility] Diagnosis Onset Date Resolution Status Dizziness acute Atherosclerotic heart diseas e cloverdale coronary artery w/angina pectoris chronic CHF (congestive heart failure) chronic Essential hypertension chron ic History of coronary artery stent placement August 13, 2017 chronic Hyperlipidemia [facility] Work Phone: Evaluation note* Diagnosis Onset Date Resolution Status Dizziness acute Atherosclerotic heart diseas e cloverdale coronary artery w/angina pectoris chronic CHF (congestive heart failure) chronic Essential hypertension chron ic History of coronary artery stent placement August 13, 2017 chronic Hyperlipidemia chronic Dizziness acute DEAN (dyspnea on exertion) [place] Palpitations acute CAD (coronary artery disease) chronic CHF (congestive heart failure) chronic Essential hypertension chron ic Hyperlipidemia [facility] Work Phone: evaluation note* Diagnosis Onset Date Resolution Status Dizziness acute Atherosclerotic heart diseas e cloverdale coronary artery w/angina pectoris chronic CHF (congestive heart failure) chronic Essential hypertension chron ic History of coronary artery stent placement August 13, 2017 chronic Hyperlipidemia chronic Dizziness acute DEAN (dyspnea on exertion) [place] Palpitations acute CAD (coronary artery disease) chronic CHF (congestive heart failure) chronic Essential hypertension chron ic Hyperlipidemia chronic DEAN (dyspnea on exertion) ac [place] CAD (coronary artery disease) chronic CHF (congestive heart failure) chronic Essential hypertension chron ic Hyperlipidemia [facility] Work Phone: Evaluation note* Diagnosis Onset Date Resolution Status Dizziness acute DEAN (dyspnea on exertion) ac [place] Palpitations acute CAD (coronary artery disease) chronic CHF (congestive heart failure) chronic Essential hypertension chron ic Hyperlipidemia chronic DEAN (dyspnea on exertion) ac [place] CAD (coronary artery disease) chronic CHF (congestive heart failure) chronic Essential hypertension chron ic Hyperlipidemia [facility] Work Phone: Evaluation note* Diagnosis Onset Date Resolution Status Abnormal PFT acute 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.9) 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 equipment [place] Obstructive sleep apnea 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 equipment [place] COVID-19 acute DEAN (dyspnea on exertion) ac [place] Atherosclerotic heart diseas e [place] coronary artery w/angina pectoris chronic CHF (congestive heart failure) chronic Essential hypertension chron ic History of coronary artery stent placement August 13, 2017 chronic Hyperlipidemia chronic Abnormal PFT acute COVID-19 acute 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.9) 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 [employer] 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 [place] 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 Work Phone: History and physical note Author Shaan Santos [facility] Note Date/Time December 07, 2024 4:4 8pm [facility] Medical Records Department [address] [place] [address] H&P Exam - Hospitalist 12/07/24 1633 MR#: [id number] Acct: [id number] Name: ERIBERTO RICO Rep #:[id number] : 1945 79 From: Shaan Santos DO PCP: Dr. Marycarmen Rodriguez, DO Status:ADM EDMUND [facility] HPI - General General Date of [...] on room air and breathing comfortably. [facility] Medical History Anxiety Depression Diabetes Kidney disease [...] attack) Obstructive sleep apnea Atherosclerotic heart disease [place] coronary artery w/angina pectoris Type 2 diabetes [...] History household members: spouse and none housing: [facility] Smoking Status: Former smoker quit date: 05/03/98 [...] 79.0 H, Lymph % (Auto) 7.9 L, [place] % (Auto) 11.5 H, Eos % (Auto) [...] IMPRESSION: No acute cardiopulmonary process Reading Location: [id number] Assessment & Plan Assessment/Plan (1) Shortness of [...] at bedside. Charges/Coding Visit Charges Inpatient E&M: 99803 Init Hosp L3 12/07/24 1643 <Electronically signed by Shaan Santos DO> Cosigner Signature (if applicable): CC: Dr. Shaan Santos DO; Dr. Marycarmen Rodriguez DO~ Signed [facility] Work Phone: Hospital Discharge instructionsAmbulatory Orders* Phase II, Outpatient Cardiac Rehab Location: None [facility] Work Phone: Hospital Discharge instructionsAdditional Instructions The groundskeeper wanted to make sure you are taking isosorbide, spironolactone, Lasix and Jardiance. Follow-up with the cardiology office.[facility] Work Phone: Progress note Author Dr. Hay [facility] September 01, 2022 9:53am Note Date/Time September 01, 2022 9:51am [facility] Medical Records Department [address] [place] [address] Progress Note 09/01/22 0950 MR#: [id number] Acct: [id number] Name: ERIBERTO RICO Rep #:[id number] : 1945 77 From: Jose Hay MD PCP: Dr. Marycarmen Rodriguez DO Status:ADM EDMUND Location: [place] [address] Progress Note Reports complete resolution of angina. Denies any complaints today. Right groin stable. No hematoma or bruit. Right radial pulse 2+. Mildly decreased platelet count noted. Repeat CBC in 2 days. Also repeat complete metabolic panel in 2 days. Discharge home. Follow-up as outpatient. 09/01/22 0953 <Electronically signed by Jose Hay MD> Jose Hay MD Cosigner Signature (if applicable): CC: ~ Signed [facility] Work Phone: Reason for referral (narrative)No reason for referral information availableWSelect [facility] Work Phone: Assessments Diagnosis MATTHEW (obstructive sleep apnea ) - Primary Obstructive sleep apnea (adult) (pediatric) Coronary artery disease invo lving [place] coronary artery of [place] heart without angina pectoris Summary Purpose Family [...] on File Type Date Recorded Patient Box Bender Expl anation Advance Directives and Living Will [...] on File Type Date Recorded Patient Box Bender Expl anation Advance Directives and Livin g Will 10/04/2020 12:00 AM Documents on File Type Date Recorded Patient Box Bender Expl anation Advance Directives and Living Will [...] on File Type Date Recorded Patient Box Bender Expl anation Advance Directives and Livin g Will 10/15/2020 12:46 PM Documents on File Type Date Recorded Patient Box Bender Expl anation Advance Directives and Livin g Will 10/15/2020 12:46 PM Documents on File Type Date Recorded Patient Box Bender Expl anation Advance Directives and Livin g [...] Will Yes June 10 4:44pm Power of Data Coder Operator Yes June 10, 2021 4:44pm Advance Directive Response Recorded Date/ Time Name of Medical Power of Data Coder Operator Jennie- November 16, 2021 1:06pm Advance Directives No August 13 018 7:02am Living Will Yes November 16, 2021 1:06pm Power of Data Coder Operator Yes November 16 1:06pm Advance Directive Response Recorded Date/ Time Advance Directives No August 13 018 6:02am Living Will Yes November 16, 2021 12:06pm Power of Data Coder Operator Yes November 16 12:06pm Advance Directive Response Recorded Date/ Time Advance Directives No August 13 018 7:02am Living Will Yes November 16, 2021 1:06pm Power of Data Coder Operator Yes November 16 1:06pm Advance Directive Response Recorded Date/ Time Advance Directives on File Yes August 312022 7:47am Name of Medical Power of Data Coder Operator Mike Rico- jw August 31, 2022 7:47am Advance Directives Yes August 31, 2022 7:47am Living Will Yes August 31, 2022 7: 47am Power of Data Coder Operator Yes August 31, 2022 7:47am Advance Directive Response Recorded Date/ Time Advance Directives on File Yes August 312022 7:47am Name of Medical Power of Data Coder Operator Mike escalera August 31, 2022 7:47am Advance Directives Yes August 31, 2022 7:47am Living Will No September 18, 2022 2:11am Power of Data Coder Operator No September 18, 2022 12:11am Advance Directive Response Recorded Date/ Time Advance Directives on File Yes August 312022 7:47am Name of Medical Power of Data Coder Operator Mike escalera August 31, 2022 7:47am Advance Directives on File No Decus 2022 7:51am Name of Medical Power of Data Coder Operator MIKE RICO December 21, 2022 7:51am Advance Directives Yes December 21, 2022 7:51am Living Will Yes December 21 7:51am Power of Data Coder Operator Yes December 21 023 7:51am Advance Directive Response Recorded Date/ Time Advance Directives on File No Augus t 2022 7:51am Name of Medical Power of Data Coder Operator MIKE RICO December 21, 2022 7:51am Advance Directives Yes December 21, 2022 7:51am Living Will Yes December 21 7:51am Power of Data Coder Operator Yes December 21 023 7:51am Advance Directive Response Recorded Date/ Time Advance Directives Yes December 21, 2022 6:51am Living Will Yes December 21 6:51am Power of Data Coder Operator Yes December 21 023 6:51am Advance Directive Response Recorded Date/ Time Living Will No October 12, 2023 6:54pm Power of Data Coder Operator No October 11 6:54pm Advance Directives Yes December 21, 2022 7:51am Advance Directive Response Recorded Date/ Time Advance Directives Yes December 21, 2022 7:51am Advance Directive Response Recorded Date/ Time Do you have a Healthcare Power of Data Coder Operator? Yes November 26, 2024 5:44pm Advance Directives Yes December 21, 2022 7:51am Advance Directive Response Recorded Date/ Time Advance Directives on File Yes November 27, 2024 8:44am Living Will Yes November 27, 2024 8:44am Do you have a Healthcare Pow er of Data Coder Operator? Yes November 27, 2024 8:44am Name of Medical Power of Data Coder Operator Jennie Agarwal er- spouse November 27, 2024 8:44am Advance Directives Yes November 27 8:44am Do you have a Healthcare Pow er of Data Coder Operator? Yes November 26, 2024 5:44pm Advance Directive Response Recorded Date/ Time Advance Directives on File Yes November 27, 2024 8:44am Living Will Yes November 27, 2024 8:44am Do you have a Healthcare Pow er of Data Coder Operator? Yes November 27, 2024 8:44am Name of Medical Power of Data Coder Operator Jennie Agarwal er- spouse November 27, 2024 8:44am Advance Directives Yes November 27 8:44am Do you have a Healthcare Pow er of Data Coder Operator? Yes November 26, 2024 5:44pm Do you have a Healthcare Pow er of Data Coder Operator? Yes November 30, 2024 5:22pm Advance Directive Response Recorded Date/ Time Advance Directives on File Yes November 27, 2024 8:44am Living Will Yes November 27, 2024 8:44am Do you have a Healthcare Pow er of Data Coder Operator? Yes November 27, 2024 8:44am Name of Medical Power of Data Coder Operator Jennie Agarwal er- spouse November 27, 2024 8:44am Advance Directives Yes November 27 8:44am Do you have a Healthcare Pow er of Data Coder Operator? Yes November 26, 2024 5:44pm Do you have a Healthcare Pow er of Data Coder Operator? Yes November 30, 2024 5:22pm Do you have a Healthcare Pow er of Data Coder Operator? Yes December 02, 2024 8:23pm Advance Directive Response Recorded Date/ Time Advance Directives on File Yes November 27, 2024 8:44am Living Will Yes November 27, 2024 8:44am Do you have a Healthcare Pow er of Data Coder Operator? Yes November 27, 2024 8:44am Name of Medical Power of Data Coder Operator Jennie Agarwal er- spouse November 27, 2024 8:44am Advance Directives Yes November 27 8:44am Do you have a Healthcare Pow er of Data Coder Operator? Yes November 26, 2024 5:44pm Do you have a Healthcare Pow er of Data Coder Operator? Yes November 30, 2024 5:22pm Do you have a Healthcare Pow er of Data Coder Operator? Yes December 02, 2024 9:54pm Advance Directive Response Recorded Date/ Time Advance Directives on File Yes November 27, 2024 8:44am Living Will Yes November 27, 2024 8:44am Do you have a Healthcare Pow er of Data Coder Operator? Yes November 27, 2024 8:44am Name of Medical Power of Data Coder Operator Jennie Agarwal er- spouse November 27, 2024 8:44am Advance Directives Yes November 27 8:44am Do you have a Healthcare Pow er of Data Coder Operator? Yes November 26, 2024 5:44pm Do you have a Healthcare Pow er of Data Coder Operator? Yes November 30, 2024 5:22pm Do you have a Healthcare Pow er of Data Coder Operator? Yes December 02, 2024 9:54pm Do you have a Healthcare Pow er of Data Coder Operator? Yes December 07, 2024 11:09am Advance Directive Response Recorded Date/ Time Advance Directives on File Yes November 27, 2024 8:44am Living Will Yes November 27, 2024 8:44am Do you have a Healthcare Pow er of Data Coder Operator? Yes November 27, 2024 8:44am Name of Medical Power of Data Coder Operator Jennie Agarwal er- spouse November 27, 2024 8:44am Advance Directives Yes November 27 8:44am Do you have a Healthcare Pow er of Data Coder Operator? Yes November 26, 2024 5:44pm Do you have a Healthcare Pow er of Data Coder Operator? Yes November 30, 2024 5:22pm Do you have a Healthcare Pow er of Data Coder Operator? Yes December 02, 2024 9:54pm Do you have a Healthcare Pow er of Data Coder Operator? Yes December 07, 2024 5:33pm Advance Directive Response Recorded Date/ Time Advance Directives on File Yes November 27, 2024 8:44am Living Will Yes November 27, 2024 8:44am Do you have a Healthcare Pow er of Data Coder Operator? Yes November 27, 2024 8:44am Name of Medical Power of Data Coder Operator Jennie Agarwal er- spouse November 27, 2024 8:44am Advance Directives Yes November 27 8:44am Do you have a Healthcare Pow er of Data Coder Operator? Yes December 15, 2024 3:01pm Do you have a Healthcare Pow er of Data Coder Operator? Yes November 26, 2024 5:44pm Do you have a Healthcare Pow er of Data Coder Operator? Yes November 30, 2024 5:22pm Do you have a Healthcare Pow er of Data Coder Operator? Yes December 02, 2024 9:54pm Do you have a Healthcare Pow er of Data Coder Operator? Yes December 07, 2024 5:33pm Advance Directive Response Recorded Date/ Time Advance Directives on File Yes November 27, 2024 8:44am Living Will Yes November 27, 2024 8:44am Do you have a Healthcare Pow er of Data Coder Operator? Yes November 27, 2024 8:44am Name of Medical Power of Data Coder Operator Jennie Agarwal er- spouse November 27, 2024 8:44am Advance Directives Yes November 27 8:44am Do you have a Healthcare Pow er of Data Coder Operator? Yes December 15, 2024 3:01pm Do you have a Healthcare Pow er of Data Coder Operator? Yes December 20, 2024 11:46am Do you have a Healthcare Pow er of Data Coder Operator? Yes November 26, 2024 5:44pm Do you have a Healthcare Pow er of Data Coder Operator? Yes November 30, 2024 5:22pm Do you have a Healthcare Pow er of Data Coder Operator? Yes December 02, 2024 9:54pm Do you have a Healthcare Pow er of Data Coder Operator? Yes December 07, 2024 5:33pm Do you have a Healthcare Pow er of Data Coder Operator? Yes December 24, 2024 2:54am Reason for Referral Status Reason Specialty Diagnoses / Procedures Referred By Contact Referred To Contact New Request Cardiology Diagnoses Shortness of breath Procedures Echocardiogram complete Eladio Ingram MD [address] [facility] [address] [place] [address] Status Reason Specialty Diagnoses / Procedures Referred By Contact Referred To Contact Closed Cardiology Diagnoses DEAN (dyspnea on exertion) Procedures ECG 12 lead Fernanda Acuña, REGISTERED NURSE MATERNITY [address] [place] [address] Specialty Diagnoses / Procedures Referred By Contac t Referred To Contact Radiology Diagnoses Coronary artery disease involving [place] coronary artery of [place] heart with angina pectoris (HCC) Procedures CT Angiogram Aorta Chest Abdomen Pelvis Eladio Ingram MD [address] [place] [address] Referral ID Status Reason Start Date Expiration Date V isits Requested Visits Authorized [id number] New Request 01/10/2021 01/10/2022 1 1 Chief Complaint and Reason for Visit Chief Complaint R. LOWER LID LESION RLQ ABD PAIN bleeding from ear, chest pain OVERDUE FOR OV CHEST PAIN CHEST PAIN Reason for Visit Dizziness Atherosclerotic heart disease [place] coronary artery w/angina pectoris CHF (congestive heart failure) Essential hypertension History of coronary artery stent placement Hyperlipidemia Chief Complaint bleeding from ear, c hest pain OVERDUE FOR OV CHEST PAIN CHEST PAIN 6-8 WK F/U DYSPNEA Reason for Visit Dizziness Atherosclerotic heart disease [place] coronary artery w/angina pectoris CHF (congestive heart failure) Essential hypertension History of coronary artery stent placement Hyperlipidemia Dizziness DEAN (dyspnea on exertion) Palpitations CAD (coronary artery disease) CHF (congestive heart failure) Essential hypertension Hyperlipidemia Chief Complaint OVERDUE FOR OV CHEST PAIN CHEST PAIN 6-8 WK F/U DYSPNEA Reason for Visit Dizziness Atherosclerotic heart disease [place] coronary artery w/angina pectoris CHF (congestive heart failure) Essential hypertension History of coronary artery stent placement Hyperlipidemia Dizziness DEAN (dyspnea on exertion) Palpitations CAD (coronary artery disease) CHF (congestive heart failure) Essential hypertension Hyperlipidemia Chief Complaint OVERDUE FOR OV CHEST PAIN CHEST PAIN 6-8 WK F/U DYSPNEA CHEST PAIN 2 M FU E ORDERS Reason for Visit Dizziness Atherosclerotic heart disease [place] coronary artery w/angina pectoris CHF (congestive heart [...] DEAN (dyspnea on exertion) Atherosclerotic heart disease [place] coronary artery w/angina pectoris CHF (congestive heart failure) Essential hypertension History of coronary artery stent placement Hyperlipidemia Abnormal PFT COVID-19 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.9) Obstructive sleep apnea Chief Complaint SORE THROAT, COUGH, FEVER, BODY ACHE 5 MO F/U 3 M FU DYSPNEA/SOB Reason for Visit COVID-19 DEAN (dyspnea on exertion) Atherosclerotic heart disease [place] coronary artery w/angina pectoris CHF (congestive heart [...] CP CVA, CP CVA, CP request by HOSPICE SOCIAL WORKER at [place] for angina L.L. E-ORDER SYNCOPE Reason for Visit Angina pectoris Chronic kidney disease Coronary artery disease Diabetes mellitus Dyslipidemia Essential hypertension Obesity Left-sided weakness Chest pain Fatigue Syncope Coronary artery disease Dyslipidemia Essential hypertension Chief Complaint CAD Amb Documentation EKG Coronary artery disease Amb Documentation CVA, CP CVA, CP CP ADMIT CVA, CP CVA, CP CVA, CP CVA, CP request by HOSPICE SOCIAL WORKER at [place] for angina L.L. E-ORDER SYNCOPE 2 M [...] CP CVA, CP CVA, CP request by HOSPICE SOCIAL WORKER at [place] for angina L.L. E-ORDER SYNCOPE 2 M [...] 0:13am Chief Complaint Admit Date F/U per [facility] July 03, 2024 1:10 pm MATTHEW, 42 [...] am Chief Complaint Admit Date F/U per [facility] July 03, 2024 1:10 pm MATTHEW, [...] 03 2:01am History of acute inferior wall NH December 03, 2024 2:01am Hyponatremia December 03, [...] 03 2:01am History of acute inferior wall NH December 03, 2024 2:01am Hyponatremia December 03, [...] 03 2:01am History of acute inferior wall NH December 03, 2024 2:01am Hyponatremia December 03, [...] 2:0 1am History of acute inferior wall NH December 03, 2024 2:01am DEAN (dyspnea on [...] 2:0 1am History of acute inferior wall NH December 03, 2024 2:01am Shortness of breath [...] without complic ations December 15, 2024 2:35pm Chief Complaint Admit Date 3 M FU [...] HR HM/EORDER COMING December 06, 2024 2:57pm PVC December 06, 2024 3:2 2pm LAB WORK December 07, 2024 4:0 0am SHORTNESS OF BREATH. December 07, 2024 4: 24pm SHORTNESS OF BREATH. December 07, 2024 4: 33pm ADMISSION December 07, 2024 6:5 2pm SHORTNESS OF BREATH. December 08, 2024 7: 34am 3-4 W FU December 12, 2024 10 :14am ADMISSION December 12, 2024 2: 08pm LABWORK December 13, 2024 5: 00am chest pain December 15, 2024 1: 37pm chest pain December 15, 2024 2: 35pm chest pain December 16, 2024 11 :54am chest pain December 16, 2024 6: 43pm chest pain December 17, 2024 1: 28pm LAB WORK December 18, 2024 3: 10pm gi bleed December 20, 2024 11 :46am ABLA GI BLEED December 24, 2024 1: 59am ABLA GI BLEED December 25, 2024 12 :07pm ABLA GI BLEED December 25, 2024 3: 46pm ABLA GI BLEED December 26, 2024 1: 10pm Reason for Visit Admit Date COPD (chronic obstructive pulmonary dise ase) September 20, 2024 10:13am Diastolic heart failure September 20, 2024 1 0:13am Obesity September 20, 2024 10:13 am Obstructive sleep apnea September 20, 2024 1 0:13am Chest pain October 25, 2024 7:54 am Bilateral lower extremity edema October 7:54am Coronary artery disease October 25, 2024 7:54am Essential hypertension October 25, 2024 7 :54am Hyperlipidemia October 25, 2024 7:54 am Obesity October 25, 2024 7:54 am Shortness of breath October 25, 2024 7:54 am Type 2 diabetes mellitus without complic ations October 25, 2024 7:54am Chronic kidney disease, stage 3 October 7:54am Asthma October 31, 2024 10:00 am Central sleep apnea October 31, 2024 10:00 am COPD (chronic obstructive pulmonary dise ase) October 31, 2024 10:00am Diastolic heart failure October 31, 2024 1 0:00am Obesity October 31, 2024 10:00 am Obstructive sleep apnea October 31, 2024 1 0:00am Chest pain November 22, 2024 10:5 3am Bilateral lower extremity edema October 10:53am Essential hypertension November 22, 2024 1 0:53am Hyperlipidemia November 22, 2024 10:5 3am Obesity November 22, 2024 10:5 3am Presence of stent in coronary artery Honorio 2024 10:53am Shortness of breath November 22, 2024 10:5 3am Type 2 diabetes mellitus without complic ations November 22, 2024 10:53am Chronic kidney disease, stage 3 October 10:53am Chest pain November 30, 2024 4:58 pm Leukocytosis November 30, 2024 4:58 pm STEMI (ST elevation myocardial infarctio n) November 30, 2024 4:58pm Acute kidney injury superimp osed on stage 4 chronic kidney disease November 30, 2024 4:58pm Chronic kidney disease November 30, 2024 4 :58pm Coronary artery disease November 30, 2024 4:58pm Diabetes mellitus November 30, 2024 4:58 pm Dyslipidemia November 30, 2024 4:58 pm Essential hypertension November 30, 2024 4 :58pm Chronic kidney disease, stage 3 October 4:58pm Coronary artery vasospasm December 03 2:01am Hyponatremia December 03, 2024 2:0 1am Leukocytosis December 03, 2024 2:0 1am Nonsustained monomorphic ventricular tac hycardia December 03, 2024 2:01am STEMI (ST elevation myocardial infarctio n) December 03, 2024 2:01am Acute ST elevation myocardia l infarction (STEMI) of inferior wall December 03, 2024 2:01am CHF (congestive heart failure) December 2:01am Chronic kidney disease December 03, 2024 2:01am CKD (chronic kidney disease) stage 4, GF R 15-29 ml/min December 03, 2024 2:01am Coronary artery disease December 03, 2024 2:01am Diabetes mellitus December 03, 2024 2:0 1am Dyslipidemia December 03, 2024 2:0 1am History of acute inferior wall NH December 03, 2024 2:01am Hyperlipidemia December 03, 2024 2:0 1am Obesity December 03, 2024 2:0 1am Obesity (BMI 30-39.9) December 03, 2024 2 :01am Obstructive sleep apnea December 03, 2024 2:01am DEAN (dyspnea on exertion) December 07 4:24pm Chest pain December 07, 2024 4:[address] elevation myocardial infarctio n (STEMI) December 07, 2024 4:24pm Shortness of breath December 07, 2024 4:2 4pm Chest pain December 12, 2024 10 :14am Bilateral lower extremity edema December 012024 10:14am Essential hypertension December 12, 2024 10:14am Hyperlipidemia December 12, 2024 10 :14am Obesity December 12, 2024 10 :14am Presence of stent in coronary artery Dec 10:14am Shortness of breath December 12, 2024 10 :14am Type 2 diabetes mellitus without complic ations December 12, 2024 10:14am Chronic kidney disease, stage 3 December 012024 10:14am Angina pectoris December 15, 2024 2: 35pm Central sleep apnea December 15, 2024 2: 35pm Chest pain December 15, 2024 2: 35pm CKD (chronic kidney disease) stage 4, GF R 15-29 ml/min December 15, 2024 2:35pm Diastolic heart failure December 15 2:35pm Essential hypertension December 15, 2024 2:35pm History of percutaneous transluminal cor onary angioplasty December 15, 2024 2:35pm Obstructive sleep apnea December 15 2:35pm Pericardial effusion December 15, 2024 2 :35pm Type 2 diabetes mellitus without complic ations December 15, 2024 2:35pm BRBPR (bright red blood per rectum) [id number] 1:59am Coronary artery disease December 24 1:59am Diverticulosis December 24, 2024 1: 59am GI (gastrointestinal bleed) December 24, 2024 1:59am CHF (congestive heart failure) December 242024 1:59am COPD (chronic obstructive pulmonary dise ase) December 24, 2024 1:59am Hyperlipidemia December 24, 2024 1: 59am Obesity December 24, 2024 1: 59am Additional Source Comments (unrecognized sect ion and content) No Status Records FoundNo Status Records FoundNo Status Records FoundNo Status Records FoundNo Status Records FoundNo Status Records FoundNo Status Records Found INFORMATION SOURCE (unrecogn ized section and content) DATE CREATED AUTHOR 09/24/2018 [facility] DATE CREATED AUTHOR AUTHOR'S ORGANIZ ATION 12/20/2020 [facility] DATE CREATED AUTHOR AUTHOR'S ORGANIZ ATION 01/11/2021 [facility] DATE CREATED AUTHOR AUTHOR'S ORGANIZ ATION 02/28/2021 [facility] DATE CREATED AUTHOR AUTHOR'S ORGANIZ ATION 04/20/2021 [facility] DATE CREATED AUTHOR AUTHOR'S ORGANIZ ATION 06/22/2021 [facility] DATE CREATED AUTHOR AUTHOR'S ORGANIZ ATION 12/29/2024 [facility] Reason for Visit (unrecogniz ed section and content) Reason Comments Chest Pain SOB Status Reason Specialty Diagnoses / Procedures Referred By Contact Referred To Contact Closed Cardiology Diagnoses DEAN (dyspnea on exertion) Procedures ECG 12 lead Fernanda Acuña, REGISTERED NURSE MATERNITY [address] [place] [address] Status Reason Specialty Diagnoses / Procedures Referre d By Contact Referred To Contact Closed Cardiology Diagnoses Shortness of breath Procedures Echocardiogram complete w contrast Echocardiogram complete Eladio Ingram MD [address] [facility] [address] [place] [address] Reason Comments Initial Visit (Intake) Specialty Diagnoses / Procedures Referred By Contac t Referred To Contact Cardiology Diagnoses 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, unspecified whether [place] or transplanted heart (HCC) Marycarmen Rodriguez, DO [address] [place] [address] Referral ID Status Reason Start Date Expiration Date V isits Requested Visits Authorized [id number] Closed Specialty Services Required/Krupa ent's Best Interest 10/04/2020 10/04/2021 1 1 Care Teams (unrecognized sec tion and content) Mental Health Unit Lead Psychologist Relationship Specialty Start Date End Date Marycarmen Rodriguez, DO [address] [place], [place] [id number] PCP - General Family Medicine 12/17/16 Mental Health Unit Lead Psychologist Relationship Specialty Start Date End Date Marycarmen Rodriguez DO [address] [place], [place] [address] PCP - General Family Medicine 12/17/16 Mental Health Unit Lead Psychologist Relationship Specialty Start Date End Date Marycarmen Rodriguez DO [address] [place], [place] [phone] PCP - General Family Medicine 12/17/16 Mental Health Unit Lead Psychologist Relationship Specialty Start Date End Date Marycarmen Rodriguez DO [address] [place] [address] PCP - General Family Medicine 12/17/16 Team Status: Active Member Role Status Dates Dr. Marycarmen Rodriguez DO Family Provider Active Marycarmen Rodriguez Primary Care Provider Active Team Status: Inactive Member Role Status Dates Dr. Marycarmen Rodriguez DO Primary Care Provider, Referrin g Provider Active Luz Elena Mckeon HOSPICE SOCIAL WORKER, HOSPICE SOCIAL WORKER-C Attending Provider Active Team Status: Inactive Member [...] Primary Care Provider Active Luz Elena Mckeon HOSPICE SOCIAL WORKER, HOSPICE SOCIAL WORKER-C Attending Provider Active Team Status: Inactive Member Role Status Dates Dr. Marycarmen Rodriguez DO Primary Care Provider Active Luz Elena Mckeon HOSPICE SOCIAL WORKER, HOSPICE SOCIAL WORKER-C Attending Provider, Referring P rovider Active Team [...] Dr. Marycarmen Rodriguez , DO Primary Care Provider Active Dr. Jose Hay MD Admit Provider, At tending Provider, Referring Provider, Other Provider Active Team Status: Inactive Member Role Status Dates Dr. Marycarmen Rodriguez , DO Primary Care Provider Active Dr. [...] Other Provider Active Dr. Shaan Santos , Attending Provider, Other Provid er Active Team [...] Dr. Marycarmen Rodriguez , DO Primary Care Provider Active Luz Elena Mckeon HOSPICE SOCIAL WORKER, HOSPICE SOCIAL WORKER-C Attending Provider, Referring P sharon Active Team [...] Primary Care Provider Active Luz Elena Mckeon HOSPICE SOCIAL WORKER, HOSPICE SOCIAL WORKER-C Attending Provider Active Team Status: Inactive Member [...] 2024 End: April 17, 2024 Gustabo Pérez HOSPICE SOCIAL WORKER, HOSPICE SOCIAL WORKER-C Attending Provider Active S tart: April 17, 2024 End: April 17, 2024 Team Status: Inactive Member Role Status Dates Dr. Marycarmen Rodriguez DO Primary Care Provider Active Start: April 17, 2024 End: April 17, 2024 Gustabo Pérez HOSPICE SOCIAL WORKER, HOSPICE SOCIAL WORKER-C Attending Provider Active S tart: April 17, 2024 End: April 17, 2024 Gustabo Pérez HOSPICE SOCIAL WORKER, HOSPICE SOCIAL WORKER-C Referring Provider Active S tart: April 17, [...] 2024 End: July 03, 2024 Marni Horn HOSPICE SOCIAL WORKER, HOSPICE SOCIAL WORKER-C Attending Provider Active Start: July 03, 2024 End: July 03, 2024 Team Status: Active Member Role Status Dates Dr. Marycarmen Rodriguez DO Primary Care Provider Active Start: July 07, 2024 Marni Horn HOSPICE SOCIAL WORKER, HOSPICE SOCIAL WORKER-C Attending Provider Active Start: July 07, 2024 Marni Horn HOSPICE SOCIAL WORKER, HOSPICE SOCIAL WORKER-C Referring Provider Active Start: July 07, 2024 Team Status: Inactive Member Role Status Dates Dr. Marycarmen Rodriguez DO Primary Care Provider Active Start: July 07, 2024 End: July 07, 2024 Marni Horn HOSPICE SOCIAL WORKER, HOSPICE SOCIAL WORKER-C Attending Provider Active Start: July 07, 2024 End: July 07, 2024 Marni Horn HOSPICE SOCIAL WORKER, HOSPICE SOCIAL WORKER-C Referring Provider Active Start: July 07, 2024 End: July 07, 2024 Team Status: Active Member Role Status Dates Dr. Marycarmen Rodriguez DO Primary Care Provider Active Start: July 17, 2024 Marni Horn HOSPICE SOCIAL WORKER, HOSPICE SOCIAL WORKER-C Attending Provider Active Start: July 17, 2024 Marni Horn HOSPICE SOCIAL WORKER, HOSPICE SOCIAL WORKER-C Referring Provider Active Start: July 17, 2024 Team Status: Active Member Role Status Dates Dr. Marycarmen Rodriguez DO Primary Care Provider Active Start: July 18, 2024 Marni Horn HOSPICE SOCIAL WORKER, HOSPICE SOCIAL WORKER-C Attending Provider Active Start: July 18, 2024 Marni Horn HOSPICE SOCIAL WORKER, HOSPICE SOCIAL WORKER-C Referring Provider Active Start: July 18, 2024 Team Status: Active Member Role Status Dates Dr. Marycarmen Rodriguez DO Primary Care Provider Active Start: July 18, 2024 Marni Horn HOSPICE SOCIAL WORKER, HOSPICE SOCIAL WORKER-C Referring Provider Active Start: July 18, 2024 Marni Horn HOSPICE SOCIAL WORKER, HOSPICE SOCIAL WORKER-C Other Provider Active Start: July 18, 2024 Dr. Zen East DO Attending Provider Active S tart: July 18, 2024 Team Status: Inactive Member Role Status Dates Dr. Marycarmen Rodriguez DO Primary Care Provider Active Start: July 17, 2024 End: July 17, 2024 Marni Horn HOSPICE SOCIAL WORKER, HOSPICE SOCIAL WORKER-C Attending Provider Active Start: July 17, 2024 End: July 17, 2024 Marni Horn HOSPICE SOCIAL WORKER, HOSPICE SOCIAL WORKER-C Referring Provider Active Start: July 17, 2024 End: July 17, 2024 Team Status: Inactive Member Role Status Dates Dr. Marycarmen Rodriguez DO Primary Care Provider Active Start: July 18, 2024 End: July 18, 2024 Marni Horn HOSPICE SOCIAL WORKER, HOSPICE SOCIAL WORKER-C Attending Provider Active Start: July 18, 2024 End: July 18, 2024 Marni Horn HOSPICE SOCIAL WORKER, HOSPICE SOCIAL WORKER-C Referring Provider Active Start: July 18, 2024 End: July 18, 2024 Team Status: Inactive Member Role Status Dates Dr. Marycarmen Rodriguez DO Primary Care Provider Active Start: August 03, 2024 End: August 03, 2024 Marni Horn HOSPICE SOCIAL WORKER, HOSPICE SOCIAL WORKER-C Attending Provider Active Start: August 03, 2024 End: August 03, 2024 Marni Horn HOSPICE SOCIAL WORKER, HOSPICE SOCIAL WORKER-C Referring Provider Active Start: August 03, 2024 End: August 03, 2024 Team Status: Inactive Member Role Status Dates Dr. Marycarmen Rodriguez DO Primary Care Provider Active Start: September 20, 2024 End: September 20, 2024 Dr. Marycarmen Rodriguez DO Referring Provider Active Start: September 20, 2024 End: September 20, 2024 Maren Olivas HOSPICE SOCIAL WORKER-C Attending Provider Active Start: September 20, 2024 End: September 20, 2024 Team Status: Inactive Member Role Status Dates Dr. Marycarmen Rodriguez DO Primary Care Provider Active Start: September 20, 2024 End: September 20, 2024 Maren Olivas HOSPICE SOCIAL WORKER-C Attending Provider Active Start: September 20, 2024 End: September 20, 2024 Maren Olivas NP-C Referring Provider Active Start: September 20, 2024 End: September 20, 2024 Team Status: Active Member Role Status Dates Dr. Marycarmen Rodriguez DO Primary Care Provider Active Start: September 22, 2024 Marni Horn NP, HOSPICE SOCIAL WORKER-C Attending Provider Active Start: September 22, 2024 Team Status: Inactive Member Role Status Dates Dr. Marycarmen Rodriguez DO Primary Care Provider Active Start: September 22, 2024 End: September 22, 2024 Marni Horn HOSPICE SOCIAL WORKER, HOSPICE SOCIAL WORKER-C Attending Provider Active Start: September 22, 2024 End: September 22, 2024 Team Status: Inactive Member Role Status Dates Dr. Marycarmen Rodriguez DO Primary Care Provider Active Start: September 29, 2024 End: September 29, 2024 Dr. Marycarmen Rodriguez DO Attending Provider Active Start: September 29, 2024 End: September 29, 2024 Dr. Marcyarmen Rodriguez DO Referring Provider Active Start: September 29, 2024 End: September 29, 2024 Team Status: Active Member Role Status Dates Dr. Marycarmen Rodriguez DO Primary Care Provider Active Start: July 17, 2024 Dr. Zen East DO Attending Provider Active S tart: July 17, 2024 Marni Horn HOSPICE SOCIAL WORKER, HOSPICE SOCIAL WORKER-C Referring Provider Active Start: July 17, 2024 Team Status: Inactive Member Role Status Dates Dr. Marycarmen Rodriguez DO Primary Care Provider Active Start: October 18, 2024 End: October 18, 2024 Dr. Brooks Carpenter MD Attending Provider Active Start: October 18, 2024 End: October 18, 2024 Dr. Brooks Carpenter MD Referring Provider Active Start: October 18, 2024 End: October 18, 2024 Gustabo Pérez HOSPICE SOCIAL WORKER, HOSPICE SOCIAL WORKER-C Other Provider Active Start : October 18, 2024 End: October 18, 2024 Team Status: Active Member Role Status Dates Dr. Marycarmen Rodriguez DO Primary Care Provider Active Start: October 18, 2024 Marni Horn HOSPICE SOCIAL WORKER, HOSPICE SOCIAL WORKER-C Attending Provider Active Start: October 18, 2024 Team Status: Inactive Member Role Status Dates Dr. Marycarmen Rodriguez DO Primary Care Provider Active Start: October 25, 2024 End: October 25, 2024 Dr. Marycarmen Rodriguez DO Referring Provider Active Start: October 25, 2024 End: October 25, 2024 Gustabo Pérez HOSPICE SOCIAL WORKER, HOSPICE SOCIAL WORKER-C Attending Provider Active S tart: October 25, 2024 End: October 25, 2024 Team Status: Inactive Member Role Status Dates Dr. Marycarmen Rodriguez DO Primary Care Provider Active Start: October 18, 2024 End: October 18, 2024 Manri Horn HOSPICE SOCIAL WORKER, HOSPICE SOCIAL WORKER-C Attending Provider Active Start: October 18, 2024 [...] 2024 End: July 03, 2024 Marni Horn HOSPICE SOCIAL WORKER, HOSPICE SOCIAL WORKER-C Attending Provider Active Start: July 03, 2024 End: July 03, 2024 Team Status: Inactive Member Role/Relationship Status Dates Dr. Marycarmen Rodriguez DO Primary Care Provider Active Start: July 07, 2024 End: July 07, 2024 Marni Horn HOSPICE SOCIAL WORKER, HOSPICE SOCIAL WORKER-C Attending Provider Active Start: July 07, 2024 End: July 07, 2024 Marni Horn HOSPICE SOCIAL WORKER, HOSPICE SOCIAL WORKER-C Referring Provider Active Start: July 07, 2024 End: July 07, 2024 Team Status: Inactive Member Role/Relationship Status Dates Dr. Marycarmen Rodriguez DO Primary Care Provider Active Start: July 17, 2024 End: July 17, 2024 Marni Horn HOSPICE SOCIAL WORKER, HOSPICE SOCIAL WORKER-C Attending Provider Active Start: July 17, 2024 End: July 17, 2024 Marni Horn HOSPICE SOCIAL WORKER, HOSPICE SOCIAL WORKER-C Referring Provider Active Start: July 17, 2024 End: July 17, 2024 Team Status: Active Member Role/Relationship Status Dates Dr. Marycarmen Rodriguez DO Primary Care Provider Active Start: July 17, 2024 Dr. Zen East DO Attending Provider Active S tart: July 17, 2024 Marni Horn HOSPICE SOCIAL WORKER, HOSPICE SOCIAL WORKER-C Referring Provider Active Start: July 17, 2024 Team Status: Inactive Member Role/Relationship Status Dates Dr. Marycarmen Rodriguez DO Primary Care Provider Active Start: July 18, 2024 End: July 18, 2024 Marni Horn HOSPICE SOCIAL WORKER, HOSPICE SOCIAL WORKER-C Attending Provider Active Start: July 18, 2024 End: July 18, 2024 Marni Horn HOSPICE SOCIAL WORKER, HOSPICE SOCIAL WORKER-C Referring Provider Active Start: July 18, 2024 End: July 18, 2024 Team Status: Active Member Role/Relationship Status Dates Dr. Marycarmen Rodriguez DO Primary Care Provider Active Start: July 18, 2024 Marni Horn HOSPICE SOCIAL WORKER, HOSPICE SOCIAL WORKER-C Referring Provider Active Start: July 18, 2024 Marni Horn HOSPICE SOCIAL WORKER, HOSPICE SOCIAL WORKER-C Other Provider Active Start: July 18, 2024 Dr. Zen East DO Attending Provider Active S tart: July 18, 2024 Team Status: Inactive Member Role/Relationship Status Dates Dr. Marycarmen Rodriguez DO Primary Care Provider Active Start: August 03, 2024 End: August 03, 2024 Marni Horn HOSPICE SOCIAL WORKER, HOSPICE SOCIAL WORKER-C Attending Provider Active Start: August 03, 2024 End: August 03, 2024 Marni Hron HOSPICE SOCIAL WORKER, HOSPICE SOCIAL WORKER-C Referring Provider Active Start: August 03, 2024 [...] End: September 22, 2024 Marni Horn NP, HOSPICE SOCIAL WORKER-C Attending Provider Active Start: September 22, 2024 [...] 2024 End: October 18, 2024 Gustabo Pérez HOSPICE SOCIAL WORKER, HOSPICE SOCIAL WORKER-C Other Provider Active Start : October 18, 2024 End: October 18, 2024 Team Status: Inactive Member Role/Relationship Status Dates Dr. Marycarmen Rodriguez DO Primary Care Provider Active Start: October 18, 2024 End: October 18, 2024 Marni Horn HOSPICE SOCIAL WORKER, HOSPICE SOCIAL WORKER-C Attending Provider Active Start: October 18, 2024 End: October 18, 2024 Team Status: Inactive Member Role/Relationship Status Dates Dr. Marycarmen Rodriguez DO Primary Care Provider Active Start: October 25, 2024 End: October 25, 2024 Dr. Marycarmen Rodriguez DO Referring Provider Active Start: October 25, 2024 End: October 25, 2024 Gustabo Pérez HOSPICE SOCIAL WORKER, HOSPICE SOCIAL WORKER-C Attending Provider Active S tart: October 25, 2024 End: October 25, 2024 Team Status: Active Member Role/Relationship Status Dates Dr. Marycarmen Rodriguez DO Primary Care Provider Active Start: October 26, 2024 Marni Horn HOSPICE SOCIAL WORKER, HOSPICE SOCIAL WORKER-C Attending Provider Active Start: October 26, 2024 Marni Horn HOSPICE SOCIAL WORKER, HOSPICE SOCIAL WORKER-C Referring Provider Active Start: October 26, 2024 Team Status: Inactive Member Role/Relationship Status Dates Dr. Marycarmen Rodriguez DO Primary Care Provider Active Start: October 31, 2024 End: October 31, 2024 Dr. Marycarmen Rodriguez DO Referring Provider Active Start: October 31, 2024 End: October 31, 2024 Maren Olivas HOSPICE SOCIAL WORKER-C Attending Provider Active Start: October 31, 2024 End: October 31, 2024 Team Status: Inactive Member Role/Relationship Status Dates Dr. Marycarmen Rodriguez DO Primary Care Provider Active Start: October 26, 2024 End: October 26, 2024 Marni Horn HOSPICE SOCIAL WORKER, HOSPICE SOCIAL WORKER-C Attending Provider Active Start: October 26, 2024 End: October 26, 2024 Marni Horn HOSPICE SOCIAL WORKER, HOSPICE SOCIAL WORKER-C Referring Provider Active Start: October 26, 2024 End: October 26, 2024 Team Status: Inactive Member Role/Relationship Status Dates Dr. Marycarmen Rodriguez DO Primary Care Provider Active Start: August 03, 2024 End: August 03, 2024 Marni Horn HOSPICE SOCIAL WORKER, HOSPICE SOCIAL WORKER-C Attending Provider Active Start: August 03, 2024 End: August 03, 2024 Marni Horn HOSPICE SOCIAL WORKER, HOSPICE SOCIAL WORKER-C Referring Provider Active Start: August 03, 2024 [...] End: September 22, 2024 Marni Horn NP, HOSPICE SOCIAL WORKER-C Attending Provider Active Start: September 22, 2024 [...] 2024 End: October 18, 2024 Gustabo Pérez HOSPICE SOCIAL WORKER, HOSPICE SOCIAL WORKER-C Other Provider Active Start : October 18, 2024 End: October 18, 2024 Team Status: Inactive Member Role/Relationship Status Dates Dr. Marycarmen Rodriguez DO Primary Care Provider Active Start: October 18, 2024 End: October 18, 2024 Marni Horn HOSPICE SOCIAL WORKER, HOSPICE SOCIAL WORKER-C Attending Provider Active Start: October 18, 2024 End: October 18, 2024 Team Status: Inactive Member Role/Relationship Status Dates Dr. Marycarmen Rodriguez DO Primary Care Provider Active Start: October 25, 2024 End: October 25, 2024 Dr. Marycarmen Rodriguez DO Referring Provider Active Start: October 25, 2024 End: October 25, 2024 Gustabo Pérez HOSPICE SOCIAL WORKER, HOSPICE SOCIAL WORKER-C Attending Provider Active S tart: October 25, 2024 End: October 25, 2024 Team Status: Inactive Member Role/Relationship Status Dates Dr. Marycarmen Rodriguez DO Primary Care Provider Active Start: October 26, 2024 End: October 26, 2024 Marni Horn HOSPICE SOCIAL WORKER, HOSPICE SOCIAL WORKER-C Attending Provider Active Start: October 26, 2024 End: October 26, 2024 Marni Horn HOSPICE SOCIAL WORKER, HOSPICE SOCIAL WORKER-C Referring Provider Active Start: October 26, 2024 [...] Active Start: November 10, 2024 Gustabo Pérez HOSPICE SOCIAL WORKER, HOSPICE SOCIAL WORKER-C Attending Provider Active S tart: November 10, 2024 Gustabo Pérez HOSPICE SOCIAL WORKER, HOSPICE SOCIAL WORKER-C Referring Provider Active S tart: November 10, 2024 Team Status: Active Member Role/Relationship Status Dates Dr. Marycarmen Rodriguez DO Primary Care Provider Active Start: November 10, 2024 Dr. Lance Rodriguez MD Attending Provider Active S tart: November 10, 2024 Gustabo Pérez HOSPICE SOCIAL WORKER, HOSPICE SOCIAL WORKER-C Referring Provider Active S tart: November 10, 2024 Team Status: Active Member Role/Relationship Status Dates Dr. Marycarmen Rodriguez DO Primary Care Provider Active Start: November 10, 2024 Maren Olivas , HOSPICE SOCIAL WORKER-C Attending Provider Active Start: November 10, 2024 Maren Olivas HOSPICE SOCIAL WORKER-C Referring Provider Active Start: November 10, 2024 Team Status: Active Member Role/Relationship Status Dates Dr. Marycarmen Rodriguez DO Primary Care Provider Active Start: November 13, 2024 Gustabo Pérez HOSPICE SOCIAL WORKER, HOSPICE SOCIAL WORKER-C Referring Provider Active S tart: November 13, 2024 Gustabo Pérez HOSPICE SOCIAL WORKER, HOSPICE SOCIAL WORKER-C Other Provider Active Start : November 13, 2024 Dr. Jose Hay MD Attending Provider Active Start: November 13, 2024 Team Status: Inactive Member Role/Relationship Status Dates Dr. Marycarmen Rodriguez DO Primary Care Provider Active Start: November 10, 2024 End: November 10, 2024 Gustabo Pérez HOSPICE SOCIAL WORKER, HOSPICE SOCIAL WORKER-C Attending Provider Active S tart: November 10, 2024 End: November 10, 2024 Gustabo Pérez HOSPICE SOCIAL WORKER, HOSPICE SOCIAL WORKER-C Referring Provider Active S tart: November 10, 2024 End: November 10, 2024 Team Status: Inactive Member Role/Relationship Status Dates Dr. Marycarmen Rodriguez DO Primary Care Provider Active Start: November 10, 2024 End: November 10, 2024 Maren Olivas HOSPICE SOCIAL WORKER-C Attending Provider Active Start: November 10, 2024 [...] 2024 End: November 22, 2024 Gustabo Pérez HOSPICE SOCIAL WORKER, HOSPICE SOCIAL WORKER-C Attending Provider Active S tart: November 22, [...] Active Start: November 22, 2024 Gustabo Pérez HOSPICE SOCIAL WORKER, HOSPICE SOCIAL WORKER-C Attending Provider Active S tart: November 22, 2024 Gustabo Pérez HOSPICE SOCIAL WORKER, HOSPICE SOCIAL WORKER-C Referring Provider Active S tart: November 22, [...] 2024 End: November 22, 2024 Gustabo Pérez HOSPICE SOCIAL WORKER, HOSPICE SOCIAL WORKER-C Attending Provider Active S tart: November 22, 2024 End: November 22, 2024 Gustabo Pérez HOSPICE SOCIAL WORKER, HOSPICE SOCIAL WORKER-C Referring Provider Active S tart: November 22, [...] End: September 22, 2024 Marni Horn NP, HOSPICE SOCIAL WORKER-C Attending Provider Active Start: September 22, 2024 [...] 2024 End: October 18, 2024 Gustabo Pérez HOSPICE SOCIAL WORKER, HOSPICE SOCIAL WORKER-C Other Provider Active Start : October 18, 2024 End: October 18, 2024 Team Status: Inactive Member Role/Relationship Status Dates Dr. Marycarmen Rodriguez DO Primary Care Provider Active Start: October 18, 2024 End: October 18, 2024 Marni Horn NP, HOSPICE SOCIAL WORKER-C Attending Provider Active Start: October 18, 2024 End: October 18, 2024 Team Status: Inactive Member Role/Relationship Status Dates Dr. Marycarmen Rodriguez DO Primary Care Provider Active Start: October 25, 2024 End: October 25, 2024 Dr. Marycarmen Rodriguez DO Referring Provider Active Start: October 25, 2024 End: October 25, 2024 Gustabo Pérez NP, HOSPICE SOCIAL WORKER-C Attending Provider Active S tart: October 25, 2024 End: October 25, 2024 Team Status: Inactive Member Role/Relationship Status Dates Dr. Marycarmen Rodriguez DO Primary Care Provider Active Start: October 26, 2024 End: October 26, 2024 Marni Horn HOSPICE SOCIAL WORKER, HOSPICE SOCIAL WORKER-C Attending Provider Active Start: October 26, 2024 End: October 26, 2024 Marni Horn HOSPICE SOCIAL WORKER, HOSPICE SOCIAL WORKER-C Referring Provider Active Start: October 26, 2024 [...] 2024 End: November 10, 2024 Gustabo Pérez HOSPICE SOCIAL WORKER, HOSPICE SOCIAL WORKER-C Attending Provider Active S tart: November 10, 2024 End: November 10, 2024 Gustabo Pérez HOSPICE SOCIAL WORKER, HOSPICE SOCIAL WORKER-C Referring Provider Active S tart: November 10, 2024 End: November 10, 2024 Team Status: Active Member Role/Relationship Status Dates Dr. Marycarmen Rodriguez DO Primary Care Provider Active Start: November 10, 2024 Dr. Lance Rodriguez MD Attending Provider Active S tart: November 10, 2024 Gustabo Pérez HOSPICE SOCIAL WORKER, HOSPICE SOCIAL WORKER-C Referring Provider Active S tart: November 10, [...] Active Start: November 13, 2024 Gustabo Pérez HOSPICE SOCIAL WORKER, HOSPICE SOCIAL WORKER-C Referring Provider Active S tart: November 13, 2024 Gustabo Pérez HOSPICE SOCIAL WORKER, HOSPICE SOCIAL WORKER-C Other Provider Active Start : November 13, [...] 2024 End: November 22, 2024 Gustabo Pérez HOSPICE SOCIAL WORKER, HOSPICE SOCIAL WORKER-C Attending Provider Active S tart: November 22, 2024 End: November 22, 2024 Team Status: Inactive Member Role/Relationship Status Dates Dr. Marycarmen Rodriguez DO Primary Care Provider Active Start: November 22, 2024 End: November 22, 2024 Gustabo Pérez HOSPICE SOCIAL WORKER, HOSPICE SOCIAL WORKER-C Attending Provider Active S tart: November 22, 2024 End: November 22, 2024 Gustabo Pérez HOSPICE SOCIAL WORKER, HOSPICE SOCIAL WORKER-C Referring Provider Active S tart: November 22, [...] End: December 02, 2024 Dr. Nickie Danielson , Attending Provider Active S tart: November 30, [...] Provider Active Start: December 01, 2024 Dr. Abraahm Ridley DO Admit Provider Active Start: December [...] Active St art: December 02, 2024 Dr. iNck Bernard MD Other Provider Active Star t: [...] December 02, 2024 Dr. Abraham Ridley , DO Admit Provider Active Start: November 30, [...] End: December 02, 2024 Dr. Nickie Danielson , Attending Provider Active S tart: November 30, [...] Provider Active Start: December 06, 2024 Dr. Rashede Canela MD Emergency Provider Active Sta rt: [...] Provider Active Start: December 08, 2024 Dr. oTr Irizarry DO Emergency Provider Activ e Start: [...] 2024 End: December 12, 2024 Gustabo Pérez HOSPICE SOCIAL WORKER, HOSPICE SOCIAL WORKER-C Attending Provider Active S tart: December 12, [...] Role/Relationship Status Dates Dr. Marycarmen Rodriguez , DO Primary Care Provider Active Start: December [...] Provider Active Start: December 06, 2024 Dr. lAex Sanon MD Other Provider Active Star t: December 06, 2024 Team Status: Active Member Role/Relationship Status Dates Dr. Marycarmen Rodriguez DO Primary Care Provider Active Start: December 12, 2024 Gustabo Pérez HOSPICE SOCIAL WORKER, HOSPICE SOCIAL WORKER-C Attending Provider Active S tart: December 12, 2024 Gustabo Pérez HOSPICE SOCIAL WORKER, HOSPICE SOCIAL WORKER-C Referring Provider Active S tart: December 12, [...] 2024 End: December 12, 2024 Gustabo Pérez HOSPICE SOCIAL WORKER, HOSPICE SOCIAL WORKER-C Attending Provider Active S tart: December 12, 2024 End: December 12, 2024 Gustabo H Roof HOSPICE SOCIAL WORKER, HOSPICE SOCIAL WORKER-C Referring Provider Active S tart: December 12, 2024 End: December 12, 2024 Team Status: Active Member Role/Relationship Status Dates Dr. Marycarmen Rodriguez DO Primary Care Provider Active Start: December 06, 2024 Dr. Marcin Araujo MD Attending Provider Active S tart: December 06, 2024 Dr. Marcin Araujo MD [...] Active Start: December 07, 2024 End: December 07, 2024 Tess Balderas HOSPICE SOCIAL WORKER, HOSPICE SOCIAL WORKER-C Attending Provider Active Start: December 07, 2024 End: December 07, 2024 Team Status: Active Member [...] Star t: December 08, 2024 Team Status: Inactive Member Role/Relationship Status Dates Dr. Marycarmen Rodriguez DO Primary Care Provider Active Start: December 12, 2024 End: December 12, 2024 Dr. Marycarmen Rodriguez DO Referring Provider Active Start: December 12, 2024 End: December 12, 2024 Gustabo Pérez HOSPICE SOCIAL WORKER, HOSPICE SOCIAL WORKER-C Attending Provider Active S tart: December 12, 2024 End: December 12, 2024 Team Status: Inactive Member Role/Relationship Status Dates Dr. Marycarmen Rodriguez DO Primary Care Provider Active Start: December 12, 2024 End: December 12, 2024 Gustabo Pérez HOSPICE SOCIAL WORKER, HOSPICE SOCIAL WORKER-C Attending Provider Active S tart: December 12, 2024 End: December 12, 2024 Gustabo Pérez HOSPICE SOCIAL WORKER, HOSPICE SOCIAL WORKER-C Referring Provider Active S tart: December 12, 2024 End: December 12, 2024 Team Status: Inactive Member Role/Relationship Status Dates Dr. Marycarmen Rodriguez DO Primary Care Provider Active Start: December 12, 2024 End: December 12, 2024 Dr. Boyd Rock MD Attending Provider Active Start: December 12, 2024 End: [...] S tart: December 17, 2024 Team Status: Active Member Role/Relationship Status Dates Dr. Marycarmen Rodriguez DO Primary Care Provider Active Start: December 18, 2024 Boyd SWAIN MD Attending Provider Active Start: December 18, 2024 Boyd SWAIN MD Referring Provider Active Start: December 18, 2024 Team Status: Active Member Role/Relationship Status Dates Dr. Marycarmen Rodriguez DO Primary Care Provider Active Start: December 20, 2024 Boyd SWAIN MD Attending Provider Active Start: December 20, 2024 Team Status: Inactive Member Role/Relationship Status Dates Dr. Marycarmen Rodriguez DO Primary Care Provider Active Start: December 20, 2024 End: December 20, 2024 Dr. Jody Servin MD Attending Provider Active S tart: December 20, 2024 End: December 20, 2024 Dr. Jody Servin MD Referring Provider Active S tart: December 20, 2024 End: December 20, 2024 Dr. Jody Servin MD Emergency Provider Active S tart: December 20, 2024 End: December 20, 2024 Team Status: Active Member Role/Relationship Status Dates Dr. Marycarmen Rodriguez DO Primary Care Provider Active Start: December 21, 2024 Boyd SWAIN MD Attending Provider Active Start: December 21, 2024 Team Status: Active Member Role/Relationship Status Dates Dr. Marycarmen Rodriguez DO Primary Care Provider Active Start: December 24, 2024 Dr. Andrae Kennedy DO Emergency Provider Active Start: December 24, 2024 Dr. Alka Leo MD Admit Provider Active St art: December 24, 2024 Dr. Alka Leo MD Other Provider Active St art: December 24, 2024 Dr. Timothy Sexton MD Other Provider Active Sta rt: December 24, 2024 Dr. Tyler Aiken DO Other Provider Active St art: December 24, 2024 YRN Vizcaino Other Provider Active Start : December 24, 2024 YRN Galindo Other Provider Active St art: December 24, 2024 PARISH Figueroa Other Provider Active Star t: December 24, 2024 Dr. Eladio Melendez MD Attending Provider Active Start: December 24, 2024 Dr. Alex Sanon MD Other Provider Active Star t: December 24, 2024 Team Status: Active Member Role/Relationship Status Dates Dr. Marycarmen Rodriguez DO Primary Care Provider Active Start: December 25, 2024 Dr. Andrae Kenneyd DO Emergency Provider Active Start: December 25, 2024 Dr. Alka Leo MD Admit Provider Active St art: December 25, 2024 Dr. Alka Leo MD Other Provider Active St art: December 25, 2024 Dr. Timothy Sexton MD Other Provider Active Sta rt: December 25, 2024 Dr. Tyler Aiken DO Other Provider Active St art: December 25, 2024 YRN Vizcaino Other Provider Active Start : December 25, 2024 YRN Galindo Other Provider Active St art: December 25, 2024 PARISH Figueroa Other Provider Active Star t: December 25, 2024 Dr. Eladio Melendez MD Attending Provider Active Start: December 25, 2024 Dr. Eladio Melendez MD Other Provider Active Start: December 25, 2024 Dr. Alex Sanon MD Other Provider Active Star t: December 25, 2024 Team Status: Active Member Role/Relationship Status Dates Dr. Marycarmen Rodriguez DO Primary Care Provider Active Start: December 25, 2024 Dr. Andrae Kennedy DO Emergency Provider Active Start: December 25, 2024 Dr. Alka Leo MD Admit Provider Active St art: December 25, 2024 Dr. Alka Leo MD Other Provider Active St art: December 25, 2024 Dr. Timotyh Sexton MD Other Provider Active Sta rt: December 25, 2024 Dr. Tyler Aiken DO Attending Provider Active Start: December 25, 2024 Dr. Tyler Friend , DO Other Provider Active St art: December 25, 2024 YRN Vizcaino Other Provider Active Start : December 25, 2024 YRN Galindo Other Provider Active St art: December 25, 2024 PARISH Figueroa Other Provider Active Star t: December 25, 2024 Dr. Eladio Melendez MD Other Provider Active Start: December 25, 2024 Dr. Alex Sanon MD Other Provider Active Star t: December 25, 2024 Team Status: Active Member Role/Relationship Status Dates Dr. Marycarmen Rodriguez , DO Primary Care Provider Active Start: December 26, 2024 Dr. Andrae Kennedy , DO Emergency Provider Active Start: December 26, 2024 Dr. Alka Leo MD Admit Provider Active St art: December 26, 2024 Dr. Alka Leo MD Other Provider Active St art: December 26, 2024 Dr. Timothy Sexton MD Other Provider Active Sta rt: December 26, 2024 Dr. Tyler Aiken , Other Provider Active St art: December 26, 2024 YRN Vizcaino Other Provider Active Start : December 26, 2024 YRN Galindo Other Provider Active St art: December 26, 2024 PARISH Figueroa Other Provider Active Star t: December 26, 2024 Dr. Eladio Melendez MD Attending Provider Active Start: December 26, 2024 Dr. Eladio Melendez MD Other Provider Active Start: December 26, 2024 Dr. Alex Sanon MD Other Provider Active Star t: December 26, 2024 Goals (unrecognized section and content) [...] BE BASED ON THE PRIMARY CLINICAL RECORDS. [facility]. provides no warranty or guarantee of the accuracy or completeness of information in this document.
[2025-01-01 09:52] VITALS: BP 103/54; PULSE 70; RESP 18; O2SAT 98
[2025-01-01 10:03] LABS: Anion Gap 11 (5-15); BUN 15 mg/dL (4-19); BUN/Creat Ratio 10.7 RATIO (10-20); Calcium,Total 8.9 mg/dL (7.6-11.0); Carbon Dioxide 22.5 mmol/L (21.0-32.0); Chloride 106 mmol/L (98-108); Estimated Creatinine Clearance 52.44 ml/min (50-250); Glucose 142 mg/dL (70-99); Potassium 4.2 mmol/L (3.3-5.1)
[2025-01-01 10:13] LABS: Troponin T High Sensitivity 119 ng/L (<=22)
[2025-01-01 11:14] VITALS: BP 107/74; PULSE 89; RESP 16; O2SAT 98
[2025-01-01 11:45] LABS: Troponin T High Sens 2 HR 106 ng/L (<=22)
[2025-01-01 12:00] VITALS: BP 98/61; PULSE 89; RESP 18; O2SAT 97
[2025-01-01 12:20] VITALS: BP 101/78; PULSE 78; RESP 16; TEMP 37.1; O2SAT 99
== END 2025-01-01 13:04 | disposition home or self-care (01) ==
PROVIDERS: Emergency Provider Emergency Medicine; PCP Family Medicine; Visit Provider Emergency Medicine
DX: R07.9 Chest pain, unspecified (principal); N18.4 Chronic kidney disease, stage 4 (severe); I50.32 Chronic diastolic (congestive) heart failure; I13.0 Hypertensive heart and chronic kidney disease with heart failure and stage 1 through stage 4 chronic kidney disease, or unspecified chronic kidney disease; J44.9 Chronic obstructive pulmonary disease, unspecified; E11.22 Type 2 diabetes mellitus with diabetic chronic kidney disease; Z79.4 Long term (current) use of insulin; E78.00 Pure hypercholesterolemia, unspecified; I25.10 Atherosclerotic heart disease of native coronary artery without angina pectoris; I25.2 Old myocardial infarction; G47.33 Obstructive sleep apnea (adult) (pediatric); Z79.899 Other long term (current) drug therapy; Z79.82 Long term (current) use of aspirin; Z87.891 Personal history of nicotine dependence; Z86.73 Personal history of transient ischemic attack (TIA), and cerebral infarction without residual deficits
CPT/HCPCS: 71045; 80048; 84484; 85025; 93005; 99285; A4216

== ENCOUNTER 2025-01-03 10:13 | Emergency (ER) | payer MEDICARE, OTHER, SELFPAY ==
[2018-08-03 13:04] VITALS: BMI 19.8
[2025-01-03] VITALS (17 sets, daily range): BP systolic 100–142; BP diastolic 72–117; PULSE 68–98; RESP 17–24; TEMP 36.8–37.1; O2SAT 95–100; BMI 33.3
--- NOTE | 2025-01-03 10:22 | EX.ED.DYSGE1 ---
HPI History of Present Illness Chief Complaint: Chest Pain Informant: patient Onset/Context/Timing Onset: Yesterday Context: Gradual Onset Timing: Waxes and wanes Quality: Heaviness Location: Left chest Worsened by: Nothing Relieved by: Nothing Narrative Narrative: Patient presents with abnormal heart rhythm on loop recorder. Patient states he had an episode earlier this morning where he had heaviness in his chest and was short of breath and nauseated. Patient states he was lightheaded at the time. Patient states he feels better currently. Patient states his pain is only mild. Patient describes it as a heaviness. Patient states it is over the lower chest. Patient states his symptoms only lasted a few seconds. Patient admits to some nausea but denies any vomiting. Patient admits to some shortness of breath and lightheadedness. Patient denies any palpitations or reflux symptoms. Patient denies any cough or fever. [facility] Medical History Obesity (BMI 30-39.9) Acute kidney injury superimposed on stage 4 chronic kidney disease Asthma Wheezing Abnormal stress test Bilateral lower extremity edema Pericardial effusion Chest pain CKD (chronic kidney disease) stage 4, GFR 15-29 ml/min Central sleep apnea Diastolic heart failure Recent ST elevation myocardial infarction (STEMI) Chest pain History of acute inferior wall SC Acute ST elevation myocardial infarction (STEMI) of inferior wall Anxiety Depression Diabetes Kidney disease Former smoker Atrial fibrillation Myocardial infarct Coronary artery disease Hypertension TIA (transient ischemic attack) Anemia Shortness of breath Unstable angina Fatigue Syncope Left-sided weakness History of COVID-19 Presence of stent in coronary artery (~08/31/22) Dyslipidemia Diabetes mellitus Chronic kidney disease Coronary artery disease Angina pectoris Abnormal PFT Chest heaviness Palpitations DEAN (dyspnea on exertion) Dizziness Leg pain Cough Exposure to COVID-19 virus Nonhealing nonsurgical wound with fat layer exposed Laceration without foreign body of scalp, subsequent encounter Acute left-sided weakness Essential hypertension CHF (congestive heart failure) History of melanoma Obesity (BMI 35.0-39.9 without comorbidity) CAD (coronary artery disease) 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.9) COPD (chronic obstructive pulmonary disease) TIA (transient ischemic attack) Obstructive sleep apnea Atherosclerotic heart disease [place] coronary artery w/angina pectoris Type 2 diabetes mellitus without complications Hyperlipidemia Obesity Home Medications ?Medication ?Instructions ?Recorded ?Last Taken ?Type aspirin 81 mg tablet,delayed 81 mg PO DAILY@0800 health 01/21/17 10/11/23 History release maintenance mirtazapine 15 mg tablet (Remeron) 15 mg PO QHS sleep 09/21/18 10/11/23 History magnesium oxide 400 mg (241.3 mg 800 mg PO DAILY SUPPLEMENT 08/01/21 10/11/23 History magnesium) tablet cholecalciferol (vitamin D3) [address] 09/16/21 10/11/23 History mcg (1,000 unit) tablet fluoxetine 40 mg capsule 80 mg PO DAILY DEPRESSION 90 days 09/16/21 10/11/23 History #180 caps acetaminophen 325 mg tablet 650 mg PO Q6H PRN Pain 1-02/0910/12/23 Unknown History atorvastatin 40 mg tablet 40 mg PO QHS CHOLESTEROL #90 tabs 06/14/24 Unknown Rx nitroglycerin 0.4 mg sublingual 0.4 mg sublingual Q5-15M PRN CHEST 06/14/24 Unknown Rx tablet PAIN #25 tabs pantoprazole 40 mg tablet,delayed 40 mg PO DAILY GERD #90 tabs 06/14/24 Unknown Rx release amlodipine 5 mg tablet 5 mg PO QPM blood pressure 10/25/24 Unknown History metoprolol succinate 25 mg 25 mg PO DAILY blood pressure #30 10/25/24 Unknown Rx tablet,extended release 24 hr tabs ticagrelor 90 mg tablet (Brilinta) 90 mg PO BID #60 tabs 12/02/24 Unknown Rx empagliflozin 10 mg tablet 10 mg PO DAILY #90 tabs 12/06/24 Unknown Rx (Jardiance) spironolactone 25 mg tablet 25 mg PO DAILY #90 tabs 12/06/24 Unknown Rx cetirizine 10 mg tablet 5 mg PO DAILY Allergic Reaction 12/12/24 Unknown History potassium chloride 10 mEq 30 meq (3 x 10 mEq) PO BID #0 tabs 12/17/24 Unknown Rx tablet,extended release(part/cryst) promethazine 12.5 mg tablet 12.5 mg PO Q6H PRN nausea and 12/17/24 Unknown Rx vomiting #1 TAB furosemide 40 mg tablet 40 mg PO Q OTHER DAY #90 tabs 12/21/24 Unknown Rx insulin degludec 100 unit/mL (3 10 unit subcut DAILY diabetes 12/24/24 Unknown History mL) subcutaneous pen levothyroxine 25 mcg tablet 25 mcg PO DAILY thyroid 12/24/24 Unknown History (Synthroid) ondansetron 4 mg disintegrating 4 mg PO Q6H PRN nausea and vomiting 12/24/24 Unknown History tablet hydrocodone-acetaminophen 5-325mg 1 tab PO TID 20 days #60 tabs 12/28/24 Unknown Rx 5mg-325mg Lactobacillus rhamnosus GG 10 1 cap PO DAILY 01/01/25 Unknown History billion cell capsule (Culturelle) doxycycline hyclate 100 mg capsule 100 mg PO BID uti 01/01/25 Unknown History phenylephrine 0.25 %-mineral oil 1 applic CO 4XD 01/01/25 Unknown History 14 %-petrolatm 74.9 % rectal ointment (Preparation H) ranolazine 500 mg tablet,extended 500 mg PO BID 01/01/25 Unknown History release,12 hr witch chito leaf (hamamelis) 1 applic topical 4XD 01/01/25 Unknown History (Pre-Moistened Medicated Wipes topical pads) Allergy/AdvReac Type Severity Reaction Status Date / Time No Known Allergies Allergy Verified 01/01/25 08:53 Family History Father Parkinsons disease Prostate cancer Mother Osteoporosis Surgical History Presence of coronary angioplasty implant and graft (11/27/24) History of tympanostomy tube placement History of percutaneous transluminal coronary angioplasty (08/18/18) History of herniorrhaphy Hx of cholecystectomy History of tonsillectomy History of prostatectomy Social History household members: spouse and none housing: [facility] Smoking Status: Former smoker quit date: 05/03/98 pack-years: 50 how long ago did patient quit smokin years ago alcohol intake: never substance use type: does not use caffeine: Yes Type: coffee and tea Number of servings: 6 ROS ROS ED Constitutional Constitutional ED: Denies chills or fever(s) Eyes Eyes: Denies blurry vision or change in vision ENT ENT ED: Denies rhinorrhea or sore throat Cardiovascular Cardiovascular: Reports chest pain; Denies palpitations Respiratory/Chest Respiratory/Chest: Reports dyspnea; Denies cough Gastrointestinal Gastrointestinal: Reports nausea; Denies vomiting Genitourinary Genitourinary ED: Denies dysuria or hematuria Musculoskeletal Musculoskeletal: Reports back pain; Denies neck pain Integumentary Denies abscess or rash Neurologic Neurologic: Denies headache(s) or weakness Allergic/Immunologic Allergic/Immunologic ED: Denies mouth swelling or urticaria EXAM Physical Exam Const Vital Signs: 01/03/25 10:15 01/03/25 10:18 01/03/25 10:22 Temperature 98.3 F 98.3 F Temperature Source Oral Oral Pulse Rate 68 94 Respiratory Rate 18 17 Respiratory Effort Normal Non-Labored Blood Pressure 124/74 H 112/94 H Blood Pressure Mean 90 100 Pulse Ox 100 98 Oxygen Delivery Method Room Air Room Air 01/03/25 10:39 01/03/25 10:45 01/03/25 11:22 Temperature 98.7 F 98.7 F Temperature Source Oral Oral Pulse Rate 90 88 Respiratory Rate 22 H 19 H Respiratory Effort Blood Pressure 121/83 H 127/90 H Blood Pressure Mean 95 102 Pulse Ox 97 95 98 Oxygen Delivery Method Room Air Room Air Room Air 01/03/25 12:15 01/03/25 12:30 01/03/25 13:00 Temperature Temperature Source Pulse Rate 86 86 83 Respiratory Rate 24 H 22 H 18 Respiratory Effort Blood Pressure 119/75 124/79 H 142/79 H Blood Pressure Mean 89 94 100 Pulse Ox 99 97 96 Oxygen Delivery Method Room Air 01/03/25 13:30 01/03/25 14:00 01/03/25 14:30 Temperature Temperature Source Pulse Rate 83 86 83 Respiratory Rate 18 20 H 20 H Respiratory Effort Blood Pressure 138/117 H 106/72 108/77 Blood Pressure Mean 124 83 87 Pulse Ox 100 Oxygen Delivery Method Room Air 01/03/25 15:00 Temperature Temperature Source Pulse Rate 86 Respiratory Rate 20 H Respiratory Effort Blood Pressure 111/81 H Blood Pressure Mean 91 Pulse Ox Oxygen Delivery Method Positive well nourished and well developed Constitutional Narrative: BMI is 33.3. General Appearance ED: well developed and NAD HEENT Reports moist mucous membranes Neck supple and no JVD Resp normal respiratory effort and clear to auscultation bilaterally Cardio regular rate and regular rhythm GI non-tender and non-distended Palpation: soft Extremity normal to inspection General Extremety ED: Negative for edema or tenderness General Extremity: Negative for edema Neuro oriented x3, CN's II-XII intact bilaterally and no sensory deficits noted Sensorium / Orientation: alert Motor Exam: strength 5/5 throughout Psych mental status grossly normal MDM MDM MDM Narrative Medical decision making narrative: Differential diagnosis includes cardiac dysrhythmia, cardiac ischemia, pneumonia, bronchitis, electrolyte abnormality, and anxiety. EKG will be obtained to assess for cardiac dysrhythmia and cardiac ischemia. Chest x-ray will be obtained to assess for pneumonia or bronchitis. CBC will be obtained to assess for leukocytosis and anemia. Basic metabolic profile will be obtained to assess for electrolyte abnormality and renal function. History & Record Review Additional record(s) reviewed:: Prior outpatient record, Prior ED visit and Prior labs Lab Data Attestation: I reviewed the patient's lab results. Lab results narrative: CBC was reviewed. There is a mild anemia with hemoglobin of 10.5 and hematocrit of 33.4. Basic metabolic profile was reviewed. Creatinine was slightly elevated at 1.52. This is consistent with previous results. CO2 was slightly low at 20. Glucose was mildly elevated at 229. Anion gap was normal. BNP was reviewed and was elevated at 1948. 2-hour repeat high-sensitivity troponin was reviewed and was improved after 7, . Labs: Laboratory Results - last 24 hr 01/03/25 01/03/25 01/03/25 10:18 10:45 12:50 WBC 7.3 RBC 3.63 L Hgb 10.5 L Hct 33.4 L MCV 92.0 MCH 28.9 MCHC 31.4 L RDW Std Deviation 51.9 H RDW Coeff of [place] 15.7 H Plt Count 155 MPV 12.7 H Immature Gran % (Auto) 0.400 Neut % (Auto) 79.9 H Lymph % (Auto) 9.6 L [place] % (Auto) 8.9 Eos % (Auto) 1.1 Baso % (Auto) 0.1 Absolute Neuts (auto) 5.8 Absolute Lymphs (auto) 0.70 L Nucleated RBC % 0 Sodium 138 Potassium 4.0 Chloride 106 Carbon Dioxide 20.0 L Anion Gap 12 BUN 16 Creatinine 1.52 H Estim Creat Clear Calc 46.43 L Est GFR (MDRD) Non-Af 46 L BUN/Creatinine Ratio 10.4 Glucose 220 H Calcium 8.8 Troponin T High Sens 1948 H* D Troponin T Hi Sens 2 Hr Cancelled 1731 H* Radiography Chest X-Ray - ED: 1 View, Read by ED Physician, Read by Radiologist and No Acute Disease Diagnostic Testing: Clinical Impression(s) from Imaging Studies Chest X-Ray 01/03/25 10:39 IMPRESSION: No Acute Findings. Reading Location: [facility] Portable 1 view chest x-ray was obtained. On my independent interpretation, lung kim are clear. There is normal cardiac silhouette. Bony thorax is normal. There is no acute process noted. Radiologist also interpreted the x-ray and agrees. EKG Initial EKG: Attestation: I personally reviewed and interpreted this EKG as follows: Interpretation: Sinus Rhythm (With first-degree heart block with a rate of 94) and S-T Elevation (There is chronic ST elevation in leads III and aVF) Comments: EKG was obtained. On my independent interpretation, it shows sinus rhythm with a first-degree AV block with a rate of 94. CO interval was prolonged at 370 ms. QRS interval was normal at 60 ms. QTc interval was 510 ms. [place] was -19. Prior EKG tracings: available for review Prior: Unchanged (01/01/2025) Treatment and Re-Evaluation :: Patient was given aspirin here. Patient remained stable here in the emergency department. Patient remained in a first-degree AV block. Case was discussed with Dr. Ríos from cardiology. He stated that the patient will need to be transferred since Dr. Araujo is out of town. Case was discussed with Dr. Cobb, registration officer at [facility]. She accepted the patient to be transferred there. Patient will be transferred there when a bed becomes available. Patient was advised of his findings. Patient is agreeable to being transferred. All questions were answered. Discharge Plan Triage Chief Complaint: Chest Pain ED Provider: Shaan Hirsch Dx/Rx/DC Orders Clinical Impression: Third degree heart block, Coronary artery disease, Chest pain Prescriptions: No Action fluoxetine 40 mg capsule 80 mg PO DAILY 90 Days Qty: 180 magnesium oxide 400 mg (241.3 mg magnesium) tablet 800 mg PO DAILY cholecalciferol (vitamin D3) 25 mcg (1,000 unit) tablet 25 mcg PO DAILY cetirizine 10 mg tablet 5 mg PO DAILY amlodipine 5 mg tablet 5 mg PO QPM metoprolol succinate 25 mg tablet extended release 24 hr 25 mg PO DAILY Qty: 30 11RF aspirin 81 MG tablet 81 mg PO DAILY@0800 acetaminophen 325 MG tablet 650 mg PO Q6H PRN (Reason: Pain -02/09) potassium chloride 10 mEq Tablet,Er Particles/Crystals 30 meq PO BID Qty: 0 0RF promethazine 12.5 mg tablet 12.5 mg PO Q6H PRN (Reason: nausea and vomiting) Qty: 1 0RF ticagrelor [Brilinta] 90 mg Tablet 90 mg PO BID Qty: 60 11RF spironolactone 25 mg Tablet 25 mg PO DAILY Qty: 90 0RF Jardiance 10 mg Tablet 10 mg PO DAILY Qty: 90 0RF levothyroxine [Synthroid] 25 mcg tablet 25 mcg PO DAILY insulin degludec 100 unit/mL (3 mL) insulin pen 10 unit subcut DAILY ondansetron 4 mg tablet,disintegrating 4 mg PO Q6H PRN (Reason: nausea and vomiting) Pre-Moistened Medicated Wipes Pad 1 applic topical 4XD Preparation H 0.25-14-74.9 % ointment 1 applic CO 4XD ranolazine 500 mg tablet extended release 12 hr 500 mg PO BID Culturelle 10 billion cell capsule 1 cap PO DAILY doxycycline hyclate 100 mg capsule 100 mg PO BID mirtazapine [Remeron] 15 mg tablet 15 mg PO QHS nitroglycerin 0.4 mg tablet, sublingual 0.4 mg SUBLINGUAL Q5-15M PRN (Reason: CHEST PAIN) Qty: 25 3RF atorvastatin 40 mg tablet 40 mg PO QHS Qty: 90 3RF pantoprazole 40 mg tablet,delayed release (DR/EC) 40 mg PO DAILY Qty: 90 3RF furosemide 40 mg tablet 40 mg PO Q OTHER DAY Qty: 90 0RF hydrocodone-acetaminophen 5-325 mg tablet 1 tab PO TID 20 Days Qty: 60 0RF Primary Care Provider: Victor M Luke Referrals: Victor M Luke DO [Primary Care Provider] - Print Language: Telugu Disposition Disposition: Acute Care Hospital Discharge Location: [facility]
--- NOTE | 2025-01-03 10:39 | EKG12_ITS ---
Test Reason : Blood Pressure : */* mmHG Vent. Rate : 94 BPM Atrial Rate : 94 BPM P-R Int : 370 ms QRS Dur : 60 ms QT Int : 408 ms P-R-T Axes : * -19 74 degrees QTcB Int : 510 ms Critical Test Result: STEMI Sinus rhythm with 1st degree A-V block Low voltage QRS Inferior infarct T wave abnormality, consider lateral ischemia Prolonged QT ACUTE ID / STEMI Consider right ventricular involvement in acute inferior infarct Abnormal ECG Confirmed by CONCHIS PALOMO, DELFINA ([id number]), mapping editor MARÍA AMBROSIO ([id number]) on 01/05/2025 6:36:40 AM Referred By: Confirmed By: DELFINA BALDERRAMA MD
--- NOTE | 2025-01-03 10:39 | RAD_ITS ---
PROCEDURE: CHEST 1 VIEW (PORTABLE) 01/03/2025 REASON FOR EXAM: CHEST PAIN TECHNIQUE: Frontal view of the chest. COMPARISON: Prior study dated January 01, 2025. FINDINGS: Hardware: EKG electrodes are seen. Loop recording device is present. Prior fusion of the lower cervical spine. Heart: The heart size is normal. Lungs: Minimal increased markings at the lung bases suggestive of basilar atelectasis. Right lateral pleural thickening most likely secondary to old trauma and healed right rib fractures. Bones: Degenerative changes are identified within the thoracic spine. Other: RAD/Chest 1 View (Portable) IMPRESSION: No Acute Findings. Reading Location: [place] [id number]
[2025-01-03 10:52] LABS: Hematocrit 33.4 % (40-54); Hemoglobin 10.5 g/dL (13.0-16.5); Immature Granulocytes Count 0.030 X10^3/uL (0.0-0.0); Mean Corp Hgb Conc 31.4 g/dL (32-36); Mean Corpuscular Volume 92.0 fL (80-94); Mean Platelet Vol. 12.7 fl (6.2-12.0); NRBC Flagged by Analyzer 0 % (0-5); Platelet Count 155 K/mm3 (150-450); RBC Distribution Width CV 15.7 % (11.6-14.6); RBC Distribution Width SD 51.9 fl (35.1-43.9); Red Blood Count 3.63 M/mm3 (4.6-6.2); White Blood Count 7.3 K/mm3 (4.4-11.0)
[2025-01-03 11:19] LABS: Anion Gap 12 (5-15); BUN 16 mg/dL (4-19); BUN/Creat Ratio 10.4 RATIO (10-20); Calcium,Total 8.8 mg/dL (7.6-11.0); Carbon Dioxide 20.0 mmol/L (21.0-32.0); Chloride 106 mmol/L (98-108); Estimated Creatinine Clearance 46.43 ml/min (50-250); Glucose 220 mg/dL (70-99); Potassium 4.0 mmol/L (3.3-5.1)
[2025-01-03 11:32] LABS: Troponin T High Sensitivity 1948 ng/L (<=22)
[2025-01-03 13:58] LABS: Troponin T High Sens 2 HR 1731 ng/L (<=22)
[2025-01-03 15:33] LABS: Troponin T High Sens 4 HR 1771 ng/L (<=22)
--- NOTE | 2025-01-03 17:08 | PCA ---
PT ACCEPTED TO [facility] BED [id number] STEP DOWN N2N [phone] LOCAL [place] ARRANGED FOR TRANSPORT.
== END 2025-01-03 18:00 | disposition short-term general hospital (02) ==
PROVIDERS: Emergency Provider Emergency Medicine; PCP Family Medicine; Visit Provider Emergency Medicine
DX: I44.2 Atrioventricular block, complete (principal); N18.4 Chronic kidney disease, stage 4 (severe); I13.0 Hypertensive heart and chronic kidney disease with heart failure and stage 1 through stage 4 chronic kidney disease, or unspecified chronic kidney disease; I50.32 Chronic diastolic (congestive) heart failure; J44.9 Chronic obstructive pulmonary disease, unspecified; E11.22 Type 2 diabetes mellitus with diabetic chronic kidney disease; I25.10 Atherosclerotic heart disease of native coronary artery without angina pectoris; E78.5 Hyperlipidemia, unspecified; Z87.891 Personal history of nicotine dependence; R07.9 Chest pain, unspecified; I25.2 Old myocardial infarction; Z86.73 Personal history of transient ischemic attack (TIA), and cerebral infarction without residual deficits; G47.33 Obstructive sleep apnea (adult) (pediatric); Z95.5 Presence of coronary angioplasty implant and graft; Z90.49 Acquired absence of other specified parts of digestive tract; R06.09 Other forms of dyspnea; R11.0 Nausea; M54.9 Dorsalgia, unspecified; Z79.82 Long term (current) use of aspirin; Z86.16 Personal history of COVID-19
CPT/HCPCS: 71045; 80048; 84484; 85025; 93005; 99285; A4216

== ENCOUNTER 2025-01-20 13:16 | Emergency (ER) | payer MEDICARE, OTHER, SELFPAY ==
[2018-08-03 13:04] VITALS: BMI 19.8
[2025-01-20 13:17] VITALS: BP 145/89; PULSE 84; RESP 16; TEMP 36.4; O2SAT 100; BMI 31.7
--- NOTE | 2025-01-20 13:55 | RAD_ITS ---
PROCEDURE: CHEST 1 VIEW (PORTABLE) 01/20/2025 REASON FOR EXAM: CHEST PAIN. Recent history of [place]. TECHNIQUE: Frontal view of the chest. COMPARISON: 01/03/2025 FINDINGS: LUNGS AND PLEURA: No focal airspace consolidation. No pleural effusion or pneumothorax. HEART AND MEDIASTINUM: The cardiac silhouette is mildly enlarged. The mediastinal contour is normal. AORTA: Calcified thoracic aorta. BONES: No acute osseous abnormality. Prior lower cervical spine fracture. Suture anchors in the left humeral head. Degenerative changes of the spine. RAD/Chest 1 View (Portable) IMPRESSION: No Acute Findings. Reading Location: [id number]
--- NOTE | 2025-01-20 13:56 | EKG12_ITS ---
Test Reason : chest pain Blood Pressure : */* mmHG Vent. Rate : 81 BPM Atrial Rate : 81 BPM P-R Int : 182 ms QRS Dur : 66 ms QT Int : 344 ms P-R-T Axes : 58 -14 2 degrees QTcB Int : 399 ms Normal sinus rhythm Low voltage QRS Inferior infarct (cited on or before 03-Jan-2025) Abnormal ECG Confirmed by NAOMIE PALOMO, PARVEZ ([id number]), editor house organ MARÍA AMBROSIO ([id number]) on 01/22/2025 8:16:28 AM Referred By: Confirmed By: PARVEZ AKBAR MD
[2025-01-20 14:16] LABS: Hematocrit 38.4 % (40-54); Hemoglobin 11.9 g/dL (13.0-16.5); Immature Granulocytes Count 0.040 X10^3/uL (0.0-0.0); Mean Corp Hgb Conc 31.0 g/dL (32-36); Mean Corpuscular Volume 92.1 fL (80-94); Mean Platelet Vol. 12.9 fl (6.2-12.0); NRBC Flagged by Analyzer 0 % (0-5); Platelet Count 159 K/mm3 (150-450); RBC Distribution Width CV 16.3 % (11.6-14.6); RBC Distribution Width SD 54.3 fl (35.1-43.9); Red Blood Count 4.17 M/mm3 (4.6-6.2); White Blood Count 6.1 K/mm3 (4.4-11.0)
[2025-01-20 14:17] VITALS: BP 115/77; PULSE 77; RESP 18; O2SAT 98
--- NOTE | 2025-01-20 14:35 | ED.VIS.CHEST ---
HPI History of Present Illness Chief Complaint: Chest Pain Narrative Narrative: 79-year-old male past medical history of coronary artery disease, ischemic cardiomyopathy and multiple stents/ST elevation PR's within the last 7 weeks presents with chest pain that he had at 9:00 this morning. He had pain at rest. Of significance, he was recently released from [facility] [place] on Wednesday after being transferred there at the beginning of the month. He and his family state that although he was originally sent because they thought he needed a pacemaker, he saw the EP physician there, and it was determined that he does not need a pacemaker yet. They do relate history that he did receive his ninth cardiac/coronary artery stent during his last hospital stay there. Additionally, they state that he was told that should this particular stent occlude, that they would not recatheterized him for angioplasty, but rather let that portion of the heart . He states that he was concerned because he started having chest pain at rest again. [facility] Medical History Angina pectoris Obesity (BMI 30-39.9) Acute kidney injury superimposed on stage 4 chronic kidney disease Asthma Wheezing Abnormal stress test Bilateral lower extremity edema Pericardial effusion Chest pain CKD (chronic kidney disease) stage 4, GFR 15-29 ml/min Central sleep apnea Diastolic heart failure Recent ST elevation myocardial infarction (STEMI) Chest pain History of acute inferior wall PR Acute ST elevation myocardial infarction (STEMI) of inferior wall Anxiety Depression Diabetes Kidney disease Former smoker Atrial fibrillation Myocardial infarct Coronary artery disease Hypertension TIA (transient ischemic attack) Anemia Shortness of breath Unstable angina Fatigue Syncope Left-sided weakness History of COVID-19 Presence of stent in coronary artery (~08/31/22) Dyslipidemia Diabetes mellitus Chronic kidney disease Coronary artery disease Abnormal PFT Chest heaviness Palpitations DEAN (dyspnea on exertion) Dizziness Leg pain Cough Exposure to COVID-19 virus Nonhealing nonsurgical wound with fat layer exposed Laceration without foreign body of scalp, subsequent encounter Acute left-sided weakness Essential hypertension CHF (congestive heart failure) History of melanoma Obesity (BMI 35.0-39.9 without comorbidity) CAD (coronary artery disease) 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.9) COPD (chronic obstructive pulmonary disease) TIA (transient ischemic attack) Obstructive sleep apnea Atherosclerotic heart disease [place] coronary artery w/angina pectoris Type 2 diabetes mellitus without complications Hyperlipidemia Obesity Home Medications ?Medication ?Instructions ?Recorded ?Last Taken ?Type aspirin 81 mg tablet,delayed 81 mg PO DAILY@0800 health 01/21/17 10/11/23 History release maintenance mirtazapine 15 mg tablet (Remeron) 15 mg PO QHS sleep 09/21/18 10/11/23 History magnesium oxide 400 mg (241.3 mg 800 mg PO DAILY SUPPLEMENT 08/01/21 10/11/23 History magnesium) tablet cholecalciferol (vitamin D3) [address] 09/16/21 10/11/23 History mcg (1,000 unit) tablet fluoxetine 40 mg capsule 80 mg PO DAILY DEPRESSION 90 days 09/16/21 10/11/23 History #180 caps acetaminophen 325 mg tablet 650 mg PO Q6H PRN Pain 1-02/0910/12/23 Unknown History atorvastatin 40 mg tablet 40 mg PO QHS CHOLESTEROL #90 tabs 06/14/24 Unknown Rx nitroglycerin 0.4 mg sublingual 0.4 mg sublingual Q5-15M PRN CHEST 06/14/24 Unknown Rx tablet PAIN #25 tabs pantoprazole 40 mg tablet,delayed 40 mg PO DAILY GERD #90 tabs 06/14/24 Unknown Rx release amlodipine 5 mg tablet 5 mg PO QPM blood pressure 10/25/24 Unknown History metoprolol succinate 25 mg 25 mg PO DAILY blood pressure #30 10/25/24 Unknown Rx tablet,extended release 24 hr tabs empagliflozin 10 mg tablet 10 mg PO DAILY #90 tabs 12/06/24 Unknown Rx (Jardiance) spironolactone 25 mg tablet 25 mg PO DAILY #90 tabs 12/06/24 Unknown Rx potassium chloride 10 mEq 30 meq (3 x 10 mEq) PO BID #0 tabs 12/17/24 Unknown Rx tablet,extended release(part/cryst) promethazine 12.5 mg tablet 12.5 mg PO Q6H PRN nausea and 12/17/24 Unknown Rx vomiting #1 TAB insulin degludec 100 unit/mL (3 10 unit subcut DAILY diabetes 12/24/24 Unknown History mL) subcutaneous pen levothyroxine 25 mcg tablet 25 mcg PO DAILY thyroid 12/24/24 Unknown History (Synthroid) ondansetron 4 mg disintegrating 4 mg PO Q6H PRN nausea and vomiting 12/24/24 Unknown History tablet Lactobacillus rhamnosus GG 10 1 cap PO DAILY 01/01/25 Unknown History billion cell capsule (Culturelle) doxycycline hyclate 100 mg capsule 100 mg PO BID uti 01/01/25 Unknown History phenylephrine 0.25 %-mineral oil 1 applic MA 4XD 01/01/25 Unknown History 14 %-petrolatm 74.9 % rectal ointment (Preparation H) ranolazine 500 mg tablet,extended 500 mg PO BID 01/01/25 Unknown History release,12 hr witch chito leaf (hamamelis) 1 applic topical 4XD 01/01/25 Unknown History (Pre-Moistened Medicated Wipes topical pads) hydrocodone-acetaminophen 5-325mg 1 tab PO TID 20 days #60 tabs 01/11/25 Unknown Rx 5mg-325mg cetirizine 10 mg tablet 10 mg PO DAILY Allergic Reaction 01/15/25 Unknown History clopidogrel 75 mg tablet 75 mg PO QDAY 01/15/25 Unknown History colchicine 0.6 mg capsule 0.6 mg PO BID 01/15/25 Unknown History cyanocobalamin (vitamin B-12) 1,000 mcg PO QDAY 01/15/25 Unknown History 1,000 mcg tablet furosemide 40 mg tablet 40 mg PO QDAY 01/15/25 Unknown History insulin lispro 100 unit/mL 1 sliding scale dose subcut 01/15/25 Unknown History subcutaneous pen (Humalog KwikPen USEASDIRECTD (U-100) Insulin) metolazone 2.5 mg tablet 2.5 mg PO ONCE PRN 01/15/25 Unknown History potassium chloride 20 mEq 60 meq PO QDAY 01/15/25 Unknown History tablet,extended release hydrocodone-acetaminophen 5-325mg 1 tab PO TID pain 7 days #21 tabs 01/16/25 Unknown Rx 5mg-325mg Allergy/AdvReac Type Severity Reaction Status Date / Time ticagrelor (From Brilinta) Allergy Unknown Shortness Verified 01/15/25 11:28 of breath Family History Father Parkinsons disease Prostate cancer Mother Osteoporosis Surgical History Presence of coronary angioplasty implant and graft (11/27/24) History of tympanostomy tube placement History of percutaneous transluminal coronary angioplasty (08/18/18) History of herniorrhaphy Hx of cholecystectomy History of tonsillectomy History of prostatectomy Social History household members: spouse and none housing: shelter Smoking Status: Former smoker quit date: 05/03/98 pack-years: 50 how long ago did patient quit smokin years ago alcohol intake: never substance use type: does not use caffeine: Yes Type: coffee and tea Number of servings: 6 ROS ROS ED ROS Narrative Review of systems positive for chest pain this morning at 9 AM, few hours ago. No nausea or vomiting, no shortness of breath. Positive bilateral lower extremity leg swelling. No exacerbating or alleviating factors. EXAM Physical Exam Narrative Exam Narrative: Afebrile. Vital signs noted. Nontoxic-appearing. Regular rate and rhythm on cardiovascular examination. Lungs clear to auscultation bilaterally anteriorly. Abdomen soft and nontender. Neurological examination nonfocal, nonlateralizing, awake, alert, interactive. Const Vital Signs: 01/20/25 13:17 01/20/25 14:17 01/20/25 15:00 Temperature 97.5 F L Temperature Source Oral Pulse Rate 84 77 80 Respiratory Rate 16 18 16 Blood Pressure 145/89 H 115/77 115/80 Blood Pressure Mean 107 89 91 Pulse Ox 100 98 98 MDM MDM MDM Narrative Medical decision making narrative: Differential diagnosis includes but not limited to ACS including STEMI versus non-STEMI versus nonspecific chest pain versus stent reocclusion. Of note, I am familiar with the patient having seen him previously in ED visits. Currently, he is pain-free. Chest pain workup was pursued. EKG was obtained and interpreted by myself independently as normal sinus rhythm at 81 bpm without ectopy or acute ST changes. No STEMI. Chest x-ray 1 view interpreted by myself independently shows no acute findings. No pneumonia, no pneumothorax. I do not feel antibiotics are indicated. I reviewed the radiology report confirms my independent interpretation. In discussion with the patient and his family, their concern was that he had reocclusion of his stent that would cause an PR. As his EKG does not show STEMI, I feel that chest pain workup should be pursued with laboratory work. If his laboratory work does show elevation of his enzymes at initial and/or 2-hour troponin, they were told that they may need transfer to [facility] [place] as that is where he was recently stented. BMP was obtained and reviewed and as creatinine is slightly elevated at 1.28 with a BUN normal at 17, he has history of previous elevation in his creatinine as well. Troponin is elevated at 77. I did review his prior ED visits and his outpatient cardiology visit. He had recent thrombectomy at [facility] [place] and lower ejection fraction noted. I discussed the patient with Dr. Marcin Araujo with cardiology. It was felt that this may be resultant elevated troponin from his procedure within the last 2 weeks. He would like to know what the delta troponin is at 2 hours. Currently, patient feels improved and is not having chest pain, but states he has been fatigued recently. At this point in time, patient will be signed out to the oncoming physician, Dr. Rasheed Canela, who will check the repeat troponin and discussed the patient with Dr. Araujo for possible discharge home. Currently, patient is in stable condition and pain-free History & Record Review Discussion w/independent historian: Patient and Family Additional record(s) reviewed:: Prior ED visit and Prior labs Lab Data Attestation: I reviewed the patient's lab results. Labs: Laboratory Results - last 24 hr 01/20/25 13:20 WBC 6.1 RBC 4.17 L Hgb 11.9 L Hct 38.4 L MCV 92.1 MCH 28.5 MCHC 31.0 L RDW Std Deviation 54.3 H RDW Coeff of Adrian 16.3 H Plt Count 159 MPV 12.9 H Immature Gran % (Auto) 0.700 Neut % (Auto) 70.7 H Lymph % (Auto) 15.6 L [place] % (Auto) 11.5 H Eos % (Auto) 0.8 Baso % (Auto) 0.7 Absolute Neuts (auto) 4.3 Absolute Lymphs (auto) 0.95 Nucleated RBC % 0 Sodium 139 Potassium 4.0 Chloride 105 Carbon Dioxide 22.1 Anion Gap 12 BUN 17 Creatinine 1.28 H Estim Creat Clear Calc 53.86 Est GFR (MDRD) Non-Af 57 L BUN/Creatinine Ratio 13.0 Glucose 130 H Calcium 8.9 Troponin T High Sens 77 H* D Radiography Diagnostic Testing: Clinical Impression(s) from Imaging Studies Chest X-Ray 01/20/25 13:55 IMPRESSION: No Acute Findings. Reading Location: [facility] Discharge Plan Triage Chief Complaint: Chest Pain ED Provider: Isael Bernabe Dx/Rx/DC Orders Prescriptions: No Action fluoxetine 40 mg capsule 80 mg PO DAILY 90 Days Qty: 180 magnesium oxide 400 mg (241.3 mg magnesium) tablet 800 mg PO DAILY cholecalciferol (vitamin D3) 25 mcg (1,000 unit) tablet 25 mcg PO DAILY cetirizine 10 mg tablet 10 mg PO DAILY amlodipine 5 mg tablet 5 mg PO QPM metoprolol succinate 25 mg tablet extended release 24 hr 25 mg PO DAILY Qty: 30 11RF cyanocobalamin (vitamin B-12) 1,000 mcg tablet 1,000 mcg PO QDAY furosemide 40 mg tablet 40 mg PO QDAY insulin lispro [Humalog KwikPen Insulin] 100 unit/mL insulin pen 1 sliding scale dose subcut USEASDIRECTD potassium chloride 20 mEq tablet extended release 60 meq PO QDAY metolazone 2.5 mg tablet 2.5 mg PO ONCE PRN colchicine 0.6 mg capsule 0.6 mg PO BID clopidogrel 75 mg tablet 75 mg PO QDAY aspirin 81 MG tablet 81 mg PO DAILY@0800 acetaminophen 325 MG tablet 650 mg PO Q6H PRN (Reason: Pain -02/09) potassium chloride 10 mEq Tablet,Er Particles/Crystals 30 meq PO BID Qty: 0 0RF promethazine 12.5 mg tablet 12.5 mg PO Q6H PRN (Reason: nausea and vomiting) Qty: 1 0RF spironolactone 25 mg Tablet 25 mg PO DAILY Qty: 90 0RF Jardiance 10 mg Tablet 10 mg PO DAILY Qty: 90 0RF levothyroxine [Synthroid] 25 mcg tablet 25 mcg PO DAILY insulin degludec 100 unit/mL (3 mL) insulin pen 10 unit subcut DAILY ondansetron 4 mg tablet,disintegrating 4 mg PO Q6H PRN (Reason: nausea and vomiting) Pre-Moistened Medicated Wipes Pad 1 applic topical 4XD Preparation H 0.25-14-74.9 % ointment 1 applic MA 4XD ranolazine 500 mg tablet extended release 12 hr 500 mg PO BID Culturelle 10 billion cell capsule 1 cap PO DAILY doxycycline hyclate 100 mg capsule 100 mg PO BID mirtazapine [Remeron] 15 mg tablet 15 mg PO QHS nitroglycerin 0.4 mg tablet, sublingual 0.4 mg SUBLINGUAL Q5-15M PRN (Reason: CHEST PAIN) Qty: 25 3RF atorvastatin 40 mg tablet 40 mg PO QHS Qty: 90 3RF pantoprazole 40 mg tablet,delayed release (DR/EC) 40 mg PO DAILY Qty: 90 3RF hydrocodone-acetaminophen 5-325 mg tablet 1 tab PO TID 20 Days Qty: 60 0RF hydrocodone-acetaminophen 5-325 mg tablet 1 tab PO TID 7 Days Qty: 21 0RF Primary Care Provider: Victor M Luke Referrals: Victor M Luke DO [Primary Care Provider, Family Practice] Print Language: Swiss
--- OUTSIDE RECORDS SUMMARY | 2025-01-20 14:39 | XMS RPT_ITS | CCD ---
Author Organization [place] [facility] Care Team Providers Care Cast Iron Drain Pipe Layer Name Role Phone Unavailable Unavailable Unavailable Marycarmen Rodriguez DO Primary Care Provider [phone] Marycarmen Rodriguez DO Primary Care Provider [phone] MIN HOWARD Referring Unavailable MARYCARMEN RODRIGUEZ Primary Care Unavailable ELADIO INGRAM Attending Unavaila ble DAVAKIS, ELADIO ALLEN Admitting Unavaila ble MARYCARMEN RODRIGUEZ Primary Care Unavailable MARYCARMEN RODRIGUEZ Primary Care Unavailable ELADIO INGRAM Referring Unavaila ble DAVAKIS, ELADIO ALLEN Attending Unavaila ble MARYCARMEN RODRIGUEZ Primary Care Unavailable ELADIO INGRAM Admitting Unavaila ble DAVAKIS, ELADIO ALLEN Admitting Unavaila ble JENNIFERMARYCARMEN RUIZ Primary Care Unavailable MARYCARMEN RODRIGUEZ Primary Care Unavailable ELADIO INGRAM Referring Unavaila ble DAVAKISELADIO Attending Unavaila ble SCHWSAGAR RODRIGUEZ Attending Unavailable MARYCARMEN RODRIGUEZ Primary Care Unavailable SAGAR ACUÑA Referring Unavailable SAGAR ACUÑA Attending Unavailable MARYCARMEN RODRIGUEZ Primary Care Unavailable MARYCARMEN RODRIGUEZ Admitting Unavailable ELADIO INGRAM Attending Unavaila ble MARYCARMEN RODRIGUEZ Referring Unavailable MARYCARMEN RODRIGUEZ Primary Care Unavailable ELADIO INGRAM Attending Unavaila ble MARYCARMEN RODRIGUEZ Primary Care Unavailable Dr. Marycarmen Rodriguez Primary Care Provider Dr. Marycarmen Rodriguez Referring Provider Mike PEREA, YRN Laguna Attending Provider Dr. Darnell Corral Attending Provider Mike GROUP CONTROLLER, GROUP CONTROLLER-C Luz Elena Referring Provider Mike GROUP CONTROLLER, GROUP CONTROLLER-C Luz Elena Other Provider [phone] Dr. John Palacios Attending Provider Mike GROUP CONTROLLER, GROUP CONTROLLER-C Luz Elena Referring Provider Dr. Marycarmen Rodriguez Primary Care Provider [phone] Dr. Marycarmen Rodriguez Referring Provider Mike GROUP CONTROLLER, GROUP CONTROLLER-C Luz Elena Attending Provider Dr. Zen East Attending Provider Dr. Marycarmen Rodriguez Primary Care Provider [phone] Dr. Marycarmen Rodriguez Referring Provider Dr. Merritt Persaud Attending Provider PARISH Youssef Attending Provider Mike PEREA, GROUP CONTROLLER-C Luz Elena Attending Provider Dr. John Palacios Attending Provider Dr. Merritt Persaud Referring Provider Dr. Marycarmen Rodriguez Primary Care Provider [phone] Dr. Marycarmen Rodriguez Referring Provider Dr. Merritt Persaud Attending Provider Marycarmen Gutierrez Primary Care Provider Unavail Adina Phillips Attending Provider Unavailable Dr. Marycarmen Rodriguez Referring Provider Dr. Jose Hay Attending Provider Dr. Marycarmen Rodriguez Primary Care Provider [phone] Jose Hay Admit Provider Dr. Jose Hay Referring Provider [phone] Jose Armando, Dr. Garcia Other Provider Dr. Alex Sanon Referring Provider Unavailable Dr. Pardeep Hall Emergency Provider [phone] Dr. Alka Leo Admit Provider Dr. Alka Leo Attending Provider Dr. Alka Leo Other Provider Dr. Shaan Santos Attending Provider Dr. Shaan Santos Other Provider Dr. Aimee Cummins Attending Provider Mike GROUP CONTROLLER, GROUP CONTROLLER-C Luz Elena Attending Provider Adina Vallejo Attending [...] Dr. Marycarmen Rodriguez DO Attending Provider Beto GROUP CONTROLLER-C, Gustabo Gao Attending Provider Roof GROUP CONTROLLER-C, Gustabo H Referring Provider Justina GROUP CONTROLLER-C, Marni Attending Provider Justina GROUP CONTROLLER-C, Marni Referring Provider Dr. Marycarmen Rodriguez DO Primary Care Provider Dr. Marycarmen Rodriguez DO Referring Provider Dr. Joes Hay MD Attending Provider Justina GROUP CONTROLLER-C, Marni Other Provider Dr. Zen East DO Attending Provider Dr. Marycarmen Rodriguez DO Primary Care Provider Jennifer DO, Dr. Dow Referring Provider Jennifer DO, Dr. Dow Attending Provider Jennifer DO, Dr. Dow Primary Care Provider Jennifer DO, Dr. Dow Referring Provider Brendon GROUP CONTROLLER-C, Maren Clarke Attending Provider Brendon GROUP CONTROLLER-C, Maren Clarke Referring Provider [facility] , Dr. Zaldivar Attending Provider Pauline PALOMO, Dr. Guy Attending Provider Pauline PALOMO, Dr. Guy Referring Provider Roof GROUP CONTROLLER-C, Gustabo Gao Other Provider Roof GROUP CONTROLLER-C, Gustabo H Attending Provider Jennifer DO, Dr. Dow Primary Care Provider Jennifer DO, Dr. Dow Attending Provider Jennifer DO, Dr. Dow Primary Care Provider Horn GROUP CONTROLLER-C, Marni Attending Provider Horn GROUP CONTROLLER-C, Marni Referring Provider Jennifer DO, Dr. Dow Referring Provider Roof GROUP CONTROLLER-C, Gustabo H Referring Provider Jennifer PALOMO, Dr. Lucas Attending Provider Unavailab bear Hay MD, Dr. Garcia Attending Provider JenniferDr. Marycarmen vera DO Primary Care Provider Horn GROUP CONTROLLER-C, Marni Attending Provider Justina GROUP CONTROLLER-C, Marni Referring Provider Jennifer DO, Dr. Dow Referring Provider Brendon GROUP CONTROLLER-CMaren Attending Provider Brendon GROUP CONTROLLER-C, Maren Clarke Referring Provider Dr. Marycarmen Rodriguez DO Attending Provider Pauline PALOMO, Dr. Guy Attending Provider Pauline PALOMO, Dr. Guy Referring Provider Roof GROUP CONTROLLER-C, Gustabo H Other Provider Roof GROUP CONTROLLER-C, Gustabo H Attending Provider Roof GROUP CONTROLLER-C, Gustabo H Referring Provider Jennifer PALOMO, Dr. Lucas Attending Provider Unavailab bear Hay MD, Dr. Garcia Attending Provider Isael Bernabe MD Emergency Provider Jose Armando PALOMO, Dr. Garcia Admit Provider Jose Armando PALOMO, Dr. Garcia Referring Provider Keyana CATHERINE, Dr. Rosario Admit Provider Dr. bAraham Ridley DO Attending Provider Dr. Marycarmen Rodriguez DO Primary Care Provider Horn GROUP CONTROLLER-C, Marni Attending Provider Horn GROUP CONTROLLER-C, Marni Referring Provider Isael Bernabe MD Attending Provider Dr. Abraham Ridley DO Other Provider Dr. Nickie Danielson DO Attending Provider [phone] Elvis Olvera MD Other Provider Unavailable Dr. Sangeeta Negro MD Other Provider [phone] Faye Kingsley MD Other Provider Unavailable Dr. Petrona Vargas DO Other Provider [phone] Cain PALOMO, Dr. Harvey Other Provider Sissy PALOMO, Dr. Shetty Other Provider Carrington PALOMO, Dr. Alcala Other Provider Dr. Sherman Rouse MD Other Provider Dr. Seymour John MD Other Provider Willie PALOMO, Dr. Roladn Other Provider Chrissy Mccallum MD Other Provider Florentino PALOMO, Dr. Bynum Other Provider Bari PALOMO, Dr. Burleson Other Provider Cher PALOMO, Dr. Vera Other Provider Arnav PALOMO, Dr. Fermin Hernandez Other Provider Ken PALOMO, Dr. Copeland Other Provider Joana PALOMO, Dr. Romero Other [...] Dr. Abraham Ridley DO Other Provider [phone] Elvis Olvera MD Other Provider Unavailable Dr. [...] Fermin Hernandez Other Provider Ken PALOMO, Dr. Copeland Other Provider Joana PALOMO, Dr. Romero Other [...] heraclio Herron MD, Dr. Shipman Attending Provider Dr. Alex Sanon MD Other Provider Unavailable Gayle PALOMO, Dr. Burch Referring Provider [phone] Boyd Rock MD Attending Provider Unavailjose Irizarry DO, Dr. Lentz Emergency Provider Tom CATHERINE, Dr. Garduno Admit Provider Tom CATHERINE, Dr. Garduno Attending Provider Tom CATHERINE, Dr. Garduno Other Provider Tom CATHERINE, Dr. Garduno Other Provider Tom CATHERINE, Dr. Garduno Attending Provider Boyd Rock MD Referring Provider Unavailjose Weldon DO, Dr. Moe Emergency Provider Jason Faye MD, Dr. Barber Attending Provider Unavailab Jeremy PALOMO, Dr. Shipman Admit Provider Neyda PALOMO, Dr. Barber Other Provider Unavailable Ele CATHERINE, Dr. Dow Attending Provider Ele CATHERINE, Dr. Dow Other Provider Sherrie GROUP CONTROLLER-C, Tess Attending Provider Shweta PALOMO, Dr. Nix Attending Provider Gareth PALOMO, Dr. Vera Attending Provider Flory Wylie MD, Dr. Vera Referring Provider Flory Wylie MD, Dr. Vera Emergency Provider Unavailab Maria Fernanda CATHERINE, Dr. Abebe Emergency Provider Ahmet PALOMO, Dr. Alka Solorzano Admit Provider Ahmet PALOMO, Dr. Alka Solorzano Other Provider Darshan PALOMO, Dr. Aguirre Other Provider Attila CATHERINE, Dr. Scott Other Provider Amos GROUP CONTROLLER-C, Karrie Other Provider Kyle GROUP CONTROLLER-C, Opal Other Provider Lois Grullon Other Provider Al PALOMO, Dr. Eladio Us Attending Provider Al PALOMO, Dr. Eladio Us Other Provider Attila CATHERINE, Dr. Scott Attending Provider Torrey CATHERINE, Dr. Garduno Emergency Provider JARED CHOWDARY MD Consulting Unavailable PATRIC PALOMO, DR MURPHY Admitting Jason SPIVEY MD, DR MURPHY Attending Jason JACKSON MD, ISREAL Consulting Unavailable MARLEE PALOMO, TANNER Malone Consulting Unavailable JULIUS PALOMO, DR COPELAND Consulting Unavailab Fabien CATHERINE, DR VERDUZCO Consulting Unavailable Marycarmen Rodriguez Primary Care Unavailable Boyd Tom Attending Unavailabl e Jennifer, Marycarmen Primary Care Unavailable Mostafa, Mickey Referring Unavailable Mosteller, Abraham Consulting Unavailable Mosteller, Abraham Admitting Unavailable GayleMarcin garcia Attending Unavailable Mostafa, Mickey Consulting Unavailable Germain Herronge Consulting Unavailable Jennifer, Marycarmen Primary Care Unavailable Herron, Ramonita Admitting Unavailable Lance Rodriguez Attending Unavailable Azouz, Samer Consulting Unavailable Gopal, Ramonita Consulting Unavailable Marycarmen Marlow Consulting Unavailable Marycarmen Marlow Attending Unavailable JenniferMarycarmen Attending Unavailable Jennifer, Marycarmen Primary Care Unavailable Jennifer, Marycarmen Primary Care Unavailable Justina GROUP CONTROLLER, Marni Attending Unavailable Justina GROUP CONTROLLER, Marni Referring Unavailable Jennifer, Marycarmen Primary Care Unavailable Isael Bernabe Attending Unavailable Jennifer, Marycarmen Primary Care Unavailable GarethJody Referring Unavailable GarethJody gomez Attending Unavailable Jennifer, Marycarmen Primary Care Unavailable Mostafa, Mickey Referring Unavailable Mosteller, Abraham Consulting Unavailable Mosteller, Abraham Admitting Unavailable Marcin Araujo Attending Unavailable Mostafa, Mickey Consulting Unavailable Gopal, Ramonita Consulting Unavailable Alex Sanon Consulting Unavailable Jennifer, Marycarmen Primary Care Unavailable Enid Fayer Attending Unavailable Jennifer, Marycarmen Primary Care Unavailable Alka Leo Referring Unavailable Aimee Cummins Attending Unavailable Jennifer, Marycarmen Primary Care Unavailable Jose Hay Attending Unavailable Jennifer, Marycarmen Primary Care Unavailable Mosteller, Abraham Admitting Unavailable Mosteller, Abraham Consulting Unavailable Marcin Araujo Attending Unavailable Chevy Hayd Referring Unavailable Nickie Danielson Consulting Unavailable Nickie Danielson Attending Unavailable Elvis Olvera Consulting Unavailable Adeli, Amir Consulting Unavailable Hinduja, Faye Consulting Unavailable Sam, Petrona Consulting Unavailable Zha, Candice Consulting Unavailable Sissy, Diogenes Consulting Unavailable Carrington, Cari Consulting Unavailable Sherman Rouse Consulting Unavailable Seymour John Consulting Unavailable Jamar Tapia Consulting Unavailable Chrissy Mccallmu Consulting Unavailable Michael Good Consulting Unavailable Sarah Beth Candelaria Consulting Unavailable Jody Kwon Consulting Unavailable Fermin José Consulting UnavailMin Woodruff Consulting Unavailable Joana Ramclulen Consulting Unavailable Zay Alanis Consulting Unavailable Kristina Danielson Consulting Unavailable Hannawi, Yousef Consulting Unavailable Jennifer, Marycarmen Primary Care Unavailable Jose Armando, Jose Referring Unavailable Jose ArmandoEmmanuelJose Attending Unavailable Jennifer, Marycarmen Primary Care Unavailable Eladio Melendez Attending Unavailable Timothy Sexton Consulting Unavailable Alka Leo Admitting Unavailable Friend, Tyler Consulting Unavailable Karrie Trinidad Consulting Unavailable Opal Wright Consulting Unavailable Lois Corea Consulting Unavailable Alka Leo Consulting Unavailable Alex Sanon Consulting Unavailable Eladio Melendez Consulting Unavailable Jennifer, Marycarmen Primary Care Unavailable Sherrie GROUP CONTROLLER, Tess Attending Unavailable Jennifer, Marycarmen Primary Care Unavailable Sherrie GROUP CONTROLLER, Tess Attending Unavailable Jennifer, Marycarmen Primary Care Unavailable Sherrie GROUP CONTROLLER, Tess Attending Unavailable Jennifer, Marycarmen Primary Care Unavailable Justina GROUP CONTROLLER, Marni Attending Unavailable Justina GROUP CONTROLLER, Marni Referring Unavailable Alka Leo Attending Unavailable Tyler Aiken Attending Unavailable Eladio Melendez Referring Unavailable Jennifer, Marycarmen Primary Care Unavailable Shaan Santos Admitting Unavailable Shaan Santos Attending Unavailable Shaan Santos Consulting Unavailable Abraham Ridley Attending Unavailable Jennifer, Marycarmen Referring Unavailable Jennifer, Marycarmen Primary Care Unavailable Beto GROUP CONTROLLER, Gustabo Gao Attending Unavailable Jennifer, Marycarmen Primary Care Unavailable Jennifer, Marycarmen Referring Unavailable Justina GROUP CONTROLLER, Marni Attending Unavailable Jennifer, Marycarmen Primary Care Unavailable Sherrie GROUP CONTROLLER, Tess Attending Unavailable Jennifer, Marycarmen Primary Care Unavailable Boyd Rock Attending Unavailable Jennifer, Marycarmen Primary Care Unavailable Azosuha, Samer Consulting Unavailable Ramonita Herron Admitting Unavailable Marycarmen Marlow Attending Unavailable Ramonita Herron Consulting Unavailable Jennifer, Marycarmen Primary Care Unavailable Abraham Ridley Admitting Unavailable Mostafa, Mickey Referring Unavailable Abraham Ridley Consulting Unavailable Alex Sanon Attending Unavailable Mostafa, Mickey Consulting Unavailable Herron, Ramonita Consulting Unavailable Shaan Hirsch Attending Unavailable Jennifer, Marycarmen Primary Care Unavailable Jennifer, Marycarmen Primary Care Unavailable Roof GROUP CONTROLLER, Gustabo Gao Attending Unavailable Roof GROUP CONTROLLER, Gustabo H Referring Unavailable Jennifer, Marycarmen Primary Care Unavailable Roof GROUP CONTROLLER, Gustabo Gao Attending Unavailable Roof GROUP CONTROLLER, Gustabo H Referring Unavailable Jennifer, Marycarmen Primary Care Unavailable Boyd Tom Attending Unavailabl e Jennifer, Marycarmen Primary Care Unavailable Oleghe OLS, Efewongbe Attending Unavailabl e Oleghe OLS, Efewongbe Referring Unavailabl e Jennifer, Marycarmen Primary Care Unavailable Oleghe OLS, Efewongbe Attending Unavailabl e Oleghe OLS, Efewongbe Attending Unavailabl e Jennifer, Marycarmen Primary Care Unavailable Jennifer, Marycarmen Primary Care Unavailable Oleghe OLS, Efewongbe Attending Unavailabl e Jennifer, Marycarmen Primary Care Unavailable Jose Armando, Jose Admitting Unavailable Jose Armando, Jose Referring Unavailable Jose Armando, Jose Attending Unavailable Jennifer, Marycarmen Primary Care Unavailable Shaan Hirsch Attending Unavailable Jennifer, Marycarmen Attending Unavailable Jennifer, Marycarmen Primary Care Unavailable Jennifer, Marycramen Primary Care Unavailable Roof GROUP CONTROLLER, Gustabo H Referring Unavailable Roof GROUP CONTROLLER, Gustabo H Attending Unavailable Jennifer, Marycarmen Primary Care Unavailable Roof GROUP CONTROLLER, Gustabo H Attending Unavailable Jennifer, Marycarmen Referring Unavailable Jennifer, Marycarmen Primary Care Unavailable Sherrie GROUP CONTROLLER, Tess Attending Unavailable Jennifer, Marycarmen Primary Care Unavailable Nickie Danielson Attending Unavailable Abraham Ridley Admitting Unavailable Abraham Ridley Consulting Unavailable Jose Armando, Jose Referring Unavailable Elvis Olvera Consulting Unavailable AdeSangeeta dupree Consulting Unavailable Hindjames Faye Consulting Unavailable Sam Petrona Consulting Unavailable Cain Candice Consulting Unavailable Diogenes Sheehan Consulting Unavailable Cari Shultz Consulting Unavailable Sherman Rouse Consulting Unavailable Seymour John Consulting Unavailable Jamar Tapia Consulting Unavailable Chrissy Mccallum Consulting Unavailable Michael Good Consulting Unavailable Sarah Beth Candelaria Consulting Unavailable Jody Kwon Consulting Unavailable Arnav, Mhd David Consulting UnavailMin Woodruff Consulting Unavailable Nick Bernard Consulting Unavailable Zay Alanis Consulting Unavailable Kristina Danielson Consulting Unavailable Ernestina Milan Consulting Unavailable Jennifer, Marycarmen Primary Care Unavailable Alka Leo Admitting Unavailable Eladio Melendez Attending Unavailable Timothy Sexton Consulting Unavailable Tyler Aiken Consulting Unavailable Karrie Trinidad Consulting Unavailable Opal Wright Consulting Unavailable Lois Corea Consulting Unavailable Alka Leo Consulting Unavailable Alex Sanon Consulting Unavailable Jennifer, Marycarmen Primary Care Unavailable Alex Sanon Attending Unavailable Shaan Santos Admitting Unavailable Shaan Santos Consulting Unavailable Alex Sanon Attending Unavailable Ramonita Herron Attending Unavailable Jennifer, Marycarmen Primary Care Unavailable Roof GROUP CONTROLLER, Gustabo Gao Consulting Unavailable Roof GROUP CONTROLLER, Gustabo Gao Referring Unavailable Jose ArmandoJose Attending Unavailable Jennifer, Marycarmen Primary Care Unavailable Horn GROUP CONTROLLER, Marni Referring Unavailable Zen East Attending Unavailable Jennifer, Marycarmen Primary Care Unavailable Roof GROUP CONTROLLER, Gustabo Gao Referring Unavailable Lance Rodriguez Attending Unavailable Jennifer, Marycarmen Referring Unavailable Jennifer, Marycarmen Primary Care Unavailable Opal Wright Attending Unavailable Jennifer, Marycarmen Primary Care Unavailable Gayle Marcin Referring Unavailable Marcin Araujo Attending Unavailable Ramonita Herron Attending Unavailable Alex Sanon Attending Unavailable Alex Sanon Consulting Unavailable Jennifer, Marycarmen Primary Care Unavailable Zen East Attending Unavailable Horn GROUP CONTROLLER, Marni Consulting Unavailable Horn GROUP CONTROLLER, Marni Referring Unavailable Roof GROUP CONTROLLER, Gustabo Gao Attending Unavailable Jennifer, Marycarmen Primary Care Unavailable Jennifer, Marycarmen Referring Unavailable Jennifer, Marycarmen Primary Care Unavailable Jennifer, Marycarmen Referring Unavailable Maren Olivas Attending Unavailable Jennifer, Amrycarmen Primary Care Unavailable Jennifer, Marycarmen Referring Unavailable Roof GROUP CONTROLLER, Gustabo Gao Attending Unavailable Jennifer, Marycarmen Referring Unavailable Jennifer, Marycarmen Primary Care Unavailable Jose ArmandoJose Attending Unavailable Jennifer, Marycarmen Primary Care Unavailable Jennifer, Marycarmen Referring Unavailable Roof GROUP CONTROLLER, Gustabo Gao Attending Unavailable Jennifer, Marycarmen Referring Unavailable Jennifer, Marycarmen Primary Care Unavailable Jose ArmandoJose Attending Unavailable Jennifer, Marycarmen Primary Care Unavailable Horn GROUP CONTROLLER, Marni Attending Unavailable Jennifer, Marycarmen Primary Care Unavailable Maren Olivas Referring Unavailable Maren Olivas Attending Unavailable Jennifer, Marycarmen Primary Care Unavailable Horn GROUP CONTROLLER, Marni Referring Unavailable Horn GROUP CONTROLLER, Marni Attending Unavailable Jennifer, Marycarmen Primary Care Unavailable Horn GROUP CONTROLLER, Marni Referring Unavailable Horn GROUP CONTROLLER, Marni Attending Unavailable Jennifer, Marycarmen Primary Care Unavailable Horn GROUP CONTROLLER, Marni Attending Unavailable Horn GROUP CONTROLLER, Marni Referring Unavailable Maren Olivas Attending Unavailable Maren Olivas Referring Unavailable Jennifer, Marycarmen Primary Care Unavailable Jennifer, Marycarmen Attending Unavailable Jennifer, Marycarmen Referring Unavailable Jennifer, Marycarmen Primary Care Unavailable Jennifer, Marycarmen Primary Care Unavailable Jennifer, Marycarmen Attending Unavailable Jennifer, Marycarmen Primary Care Unavailable Basali, Ayman Attending Unavailable Basali Ayman Referring Unavailable Jennifer, Marycarmen Primary Care Unavailable Roof GROUP CONTROLLER, Gustabo H Attending Unavailable Roof GROUP CONTROLLER, Gustabo H Referring Unavailable Jennifer, Marycarmen Primary Care Unavailable Marcin Araujo Attending Unavailable Marcin Araujo Referring Unavailable Maren Olivas Attending Unavailable Jennifer, Marycarmen Referring Unavailable Jennifer, Marycarmen Primary Care Unavailable Abraham Ridley Attending Unavailable Jennifer, Marycarmen Primary Care Unavailable Olemie OLS Efewongbe Attending Unavailabl e Jennifer, Marycarmen Primary Care Unavailable Roof GROUP CONTROLLER, Gustabo Gao Attending Unavailable Roof GROUP CONTROLLER, Gustabo H Referring Unavailable Jennifer, Marycarmen Primary Care Unavailable Roof GROUP CONTROLLER, Gustabo Gao Consulting Unavailable Pauline Aychuy Referring Unavailable Brooks Carpenter Attending Unavailable Justina GROUP CONTROLLERMarni Attending Unavailable Jennifer, Marycarmen Primary Care Unavailable Jennifer, Marycarmen Primary Care Unavailable Oleghe OLS, Efewongbe Referring Unavailabl e Oleghe OLS, Efewongbe Attending Unavailabl e Allergies Allergy Classification Reported Allergen(s) Allergy Type Date of Onset Reaction(s) Facility (1 source) Doxycycline; Translations: [doxycycline] Drug Allergy [facility] (1 source) Ticagrelor Drug Allergy 01-15-2025 [facility] Repository Medications Current Medications Medication Drug Class(es) Dates Sig (Normalized) Sig (Original) acetaminophen 325 mg oral tablet (20 sources) Start: 01-03-2025 acetaminophen 325 mg oral tablet Dose : 650 mg = 2 tab(s), Oral, TID, PRN as needed for pain, 0 Refill(s) Start Date: 01/03/25 Status: Ordered Medication Dispense Status: Completed Total Allowed Fills: 1 Fills Dispensed: 0 Start: 01-03-2020 End: 10-12-2023 Start: 01-03-2020 take 650 mg by mouth every six hours as needed Acetaminophen Active 650 MG PO EVERY 6 HOURS NEEDED January 02, 2020 11:00pm aspirin 81 mg delayed release oral tablet (20 sources) Platelet Aggregation Inhibitor, Nonsteroidal Anti-inflammatory Drug Start: 01-10-2025 End: 01-05-2026 aspirin 81 mg oral delayed release tablet Dose : 81 mg = 1 tab(s), Oral, Daily, # 180 tab(s), 1 Refill(s) Start Date: 01/10/25 Stop Date: 01/05/26 Status: Ordered Medication Dispense Status: Completed Quantity: 180.0 Unit: tab(s) Total Allowed Fills: 2 Fills Dispensed: 0 Start: 01-21-2017 atorvastatin 40 mg oral tablet (20 sources) HMG-CoA Reductase Inhibitor Start: 01-04-2025 atorvastatin 40 mg oral tablet Dose : 40 mg = 1 tab(s), Oral, Daily Start Date: 01/04/25 Status: Ordered Medication Dispense Status: Completed Total Allowed Fills: 1 Fills Dispensed: 0 Start: 08-26-2018 End: 06-14-2024 Start: 08-26-2018 End: [...] nightly. 90 tablet 3 05/06/2016 05/06/2017 Active cetirizine hydrochloride 5 mg oral tablet (20 sources) Histamine-1 Receptor Antagonist Start: 01-04-2025 cetirizine 5 mg oral tablet Dose : 5 mg = 1 tab(s), Oral, qDay Start Date: 01/04/25 Status: Ordered Medication Dispense Status: Completed Total Allowed Fills: 1 Fills Dispensed: 0 Start: 09-16-2021 End: 12-12-2024 cholecalciferol 0.025 mg oral tablet (20 sources) Vitamin D Start: 01-03-2025 cholecalcifero l 25 mcg (1000 intl units) oral tablet Dose : 25 mcg = 1 tab(s), Oral, Daily, 0 Refill(s) Start Date: 01/03/25 Status: Ordered Medication Dispense Status: Completed Total Allowed Fills: 1 Fills Dispensed: 0 Start: 09-16-2021 Start: 08-02-2018 End: 08-26-2018 Start: [...] 20, 2017 11:00pm January 19, 2018 2:23pm clopidogrel 75 mg oral tablet (20 sources) [id number] Platelet Inhibitor Start: 01-10-2025 End: 01-05-2026 Plavix 75 mg oral tablet Dose : 75 mg = 1 tab(s), Oral, qDay, # 180 tab(s), 1 Refill(s) Start Date: 01/10/25 Stop Date: 01/05/26 Status: Ordered Medication Dispense Status: Completed Quantity: 180.0 Unit: tab(s) Total Allowed Fills: 2 Fills Dispensed: 0 Start: 03-28-2017 End: 12-02-2024 Start: 05-07-2016 take 1 tablet by sara th once daily clopidogrel (PLAVIX) 75 mg tablet Take 1 tablet (75 mg total) by mouth daily. 90 tablet 3 05/07/2016 Active CYANOCOBALAMIN, VITAMIN B-12 , (VITAMIN B12 ORAL) [...] daily. 30 capsule 11 12/17/2016 12/17/2017 Active doxycycline hyclate 100 mg oral capsule (20 sources) Tetracycline-cl ass Drug Start: 01-01-2025 Start: 01-20-2017 End: 07-22-2017 empagliflozin 10 mg oral tablet (20 sources) Sodium-Glucose Cotransporter 2 Inhibitor Start: 01-04-2025 empagliflozin 10 mg oral tablet Dose : 10 mg = 1 tab(s), Oral, qAM, 0 Refill(s) Start Date: 01/04/25 Status: Ordered Medication Dispense Status: Completed Total Allowed Fills: 1 Fills Dispensed: 0 Start: 12-06-2024 Start: 10-12-2023 End: 03-20-2024 Start: 12-15-2022 End: 10-12-2023 ERGOCALCIFEROL, VITAMIN D2, (VITAMIN D2 ORAL) (8 sources) ERGOCALCIFEROL, VITAMIN D2, (VITAMIN D2 ORAL) Take by mouth. 0 Active FLUoxetine 40 mg oral capsule (20 sources) Serotonin Reuptake Inhibitor Start: 01-04-2025 FLUoxetine 40 mg oral capsule Dose : 80 mg = 2 cap(s), Oral, qDay, # 30 cap(s), 0 Refill(s) Start Date: 01/04/25 Status: Ordered Medication Dispense Status: Completed Quantity: 30.0 Unit: cap(s) Total Allowed Fills: 1 Fills Dispensed: 0 Start: 09-21-2018 End: 09-16-2021 Start: 09-21-2018 End: 09-16-2021 Start: 09-21-2018 End: 09-16-2021 take 1 capsule by mouth once daily Fluoxetine 40 mg capsule Discontinued 40 mg PO DAILY 90 90 0 September 21, 2018 12:00am September 16, 2021 10:49am DEPRESSION take 1 capsule by [facility] twice daily FLUoxetine (PROZAC) 40 MG capsule Take 40 mg by mouth 2 (two) times a day . 0 Active furosemide 20 mg oral tablet (20 sources) Loop Diuretic Start: 01-10-2025 End: 07-09-2025 furosemide 20 mg oral tablet Dose : 20 mg = 1 tab(s), Oral, qDay, # 90 tab(s), 1 Refill(s) Start Date: 01/10/25 Stop Date: 07/09/25 Status: Ordered Medication Dispense Status: Completed Quantity: 90.0 Unit: tab(s) Total Allowed Fills: 2 Fills Dispensed: 0 Start: 12-06-2024 End: 12-21-2024 Start: 11-27-2024 End: [...] mouth daily. 90 tablet 3 05/07/2016 Active 3 ml insulin degludec 100 unt/ml pen injector (1 source) Insulin Analog Start: 01-04-2025 inject 1 dose by subcutaneous injection once daily Tresiba FlexTouch 100 units/mL 3 mL subcutaneous solution Dose : 10 unit(s) =, Subcutaneous, qDay Start Date: 01/04/25 Status: Ordered Medication Dispense Status: Completed Total Allowed Fills: 1 Fills Dispensed: 0 Lacticaseibacillus rhamnosus (1 source) Start: 01-03-2025 lactobacillus rhamnosus GG qDay, 0 Refill(s) Start Date: 01/03/25 Status: Ordered Medication Dispense Status: Completed Total Allowed Fills: 1 Fills Dispensed: 0 lactobacillus rhamnosus gg [id number] unt oral capsule (1 source) Start: 01-01-2025 levothyroxine sodium 0.025 mg oral tablet (3 sources) l-Thyroxine Start: 01-04-2025 levothyroxine 25 mcg (0.025 mg) oral tablet Dose : 25 mcg = 1 tab(s), Oral, qDay Start Date: 01/04/25 Status: Ordered Medication Dispense Status: Completed Total Allowed Fills: 1 Fills Dispensed: 0 Start: 12-24-2024 losartan potassium 25 mg oral tablet (20 sources) Angiotensin 2 Receptor Jeffrey Start: 01-10-2025 End: 07-09-2025 losartan 25 mg oral tablet Dose : 25 mg = 1 tab(s), Oral, qDay, # 90 tab(s), 1 Refill(s) Start Date: 01/10/25 Stop Date: 07/09/25 Status: Ordered Medication Dispense Status: Completed Quantity: 90.0 Unit: tab(s) Total Allowed Fills: 2 Fills Dispensed: 0 Start: 10-01-2023 End: 12-06-2024 Start: 12-15-2022 End: 10-01-2023 Start: 12-15-2022 End: 09-16-2023 take 1 tablet by mouth once daily Losartan (Cozaar) 25 mg tablet Discontinued 25 mg PO DAILY 30 September 13, 2023 8:52am September 16, 2023 9:31am magnesium oxide 400 mg oral tablet (20 sources) Start: 01-03-2025 magnesium oxid e 400 mg oral tablet Dose : 400 mg = 1 tab(s), Oral, qDay, 0 Refill(s) Start Date: 01/03/25 Status: Ordered Medication Dispense Status: Completed Total Allowed Fills: 1 Fills Dispensed: 0 Start: 06-04-2019 End: 08-01-2021 Start: 06-04-2019 End: [...] 2018 1:00am August 26, 2018 1:43pm supplement mineral oil 0.14 mg/mg / petrolatum 0.749 mg/mg / phenylephrine hydrochloride 0.0025 mg/mg rectal ointment (1 source) alpha-1 Adrenergic Agonist Start: 01-01-2025 mirtazapine 15 mg oral tablet (20 sources) Start: 01-03-2025 mirtazapine 15 mg oral tablet Dose : 15 mg = 1 tab(s), Oral, qHS, 0 Refill(s) Start Date: 01/03/25 Status: Ordered Medication Dispense Status: Completed Total Allowed Fills: 1 Fills Dispensed: 0 Start: 09-21-2018 take 1 tablet by sara th at bedtime Mirtazapine (Remeron) 15 mg tablet Active 15 mg PO AT BEDTIME September 21, 2018 11:10am sleep Start: 08-26-2018 End: 09-21-2018 nitroglycerin 0.4 mg sublingual tablet (20 sources) Nitrate Vasodilator Start: 01-03-2025 nitroglyce rin 0.4 mg sublingual tablet 0.4 mg Dose = 1 tab(s), Sublingual, q5min, PRN for chest pain, # 25 tab(s), 0 Refill(s) Start Date: 01/03/25 Status: Ordered Medication Dispense Status: Completed Quantity: 25.0 Unit: tab(s) Total Allowed Fills: 1 Fills Dispensed: 0 Start: 01-21-2017 End: 01-19-2018 Start: 01-21-2017 End: 01-19-2018 Nitroglycerin 0.3 MG tablet, sublingual Discontinued 0.3 mg SL DIRECTED as needed for Cardiac/Chest Pain January 21, 2017 12:00am January 19, 2018 3:25pm Start: 01-21-2017 End: 01-19-2018 Nitroglycerin Discontinued 0 .3 MG SL DIRECTED January 20, 2017 11:00pm January 19, 2018 2:25pm Start: 12-23-2015 End: 06-14-2024 ondansetron 4 mg disintegrat ing oral tablet (20 sources) Serotonin-3 Receptor Antagonist Start: 12-24-2024 End: 01-01-2025 Start: 09-03-2017 End: 09-07-2017 pantoprazole 40 mg delayed release oral tablet (20 sources) Proton Pump Inhibitor Start: 01-03-2025 pantoprazole 40 mg oral enteric coated tablet Dose : 40 mg = 1 tab(s), Oral, qDayAC, # 90 tab(s), 0 Refill(s) Start Date: 01/03/25 Status: Ordered Medication Dispense Status: Completed Quantity: 90.0 Unit: tab(s) Total Allowed Fills: 1 Fills Dispensed: 0 Start: 12-20-2019 End: 06-14-2024 Start: 01-21-2017 End: [...] times daily 180 tablet 3 08/07/2016 Active microencapsulated potassium chloride 10 meq extended release [...] a day. 540 tablet 3 03/28/2017 Active Preparation H 14%-74.9%-0.25% rectal ointment (1 source) Start: 01-04-2025 apply 1 dose rectal route four times daily as needed Preparation H 14%-74.9%-0.25% rectal ointment Dose = 1 tuan, Rectal, QID, PRN hemorrhoidal discomfort Start Date: 01/04/25 Status: Ordered Medication Dispense Status: Completed Total Allowed Fills: 1 Fills Dispensed: 0 promethazine hydrochloride 12.5 mg oral tablet (4 sources) Phenothiazine Start: 12-17-2024 12 hr ranolazine 500 mg extended release oral tablet (20 sources) Anti-anginal Start: 01-04-2025 ranolazine 500 mg oral tablet, extended release Dose : 500 mg = 1 tab(s), Oral, BID Start Date: 01/04/25 Status: Ordered Medication Dispense Status: Completed Total Allowed Fills: 1 Fills Dispensed: 0 Start: 01-01-2025 Start: 12-06-2024 End: 12-17-2024 Start: 10-29-2023 End: 11-12-2023 Start: 10-01-2023 End: 10-29-2023 spironolactone 25 mg oral tablet (20 sources) Aldosterone Antagonist Start: 01-10-2025 End: 07-09-2025 take 0.5 tablet by mouth once daily at mealtime spironolactone 25 mg oral tablet 0.5 tab, Oral, qDay, Take with food, # 45 tab(s), 1 Refill(s) Start Date: 01/10/25 Stop Date: 07/09/25 Status: Ordered Medication Dispense Status: Completed Quantity: 45.0 Unit: tab(s) Total Allowed Fills: 2 Fills Dispensed: 0 Start: 12-06-2024 Start: 10-12-2023 End: 12-06-2024 Start: 10-28-2018 End: 10-12-2023 Start: 01-21-2017 End: 10-28-2018 take 1 tablet by sara th once daily spironolactone (ALDACTONE) 50 MG tablet Take 50 mg by mouth daily. Active (20 sources) Start: 01-01-2025 Start: 12-24-2024 Start: 12-17-2024 End: 01-01-2025 Start: 12-17-2024 Start: 12-02-2024 Start: 04-27-2024 End: 06-14-2024 Start: 03-20-2024 Start: 09-21-2022 End: 10-12-2023 Start: 08-01-2021 End: 08-19-2022 Start: 06-04-2019 End: 06-04-2019 Start: 06-01-2019 End: 06-04-2019 Completed/Discontinued Medications Medication Drug Class(es) Dates Sig (Normalized) Sig (Original) acetaminophen 325 mg / HYDROcodone bitartrate 5 mg oral tablet (20 sources) Opioid Agonist Start: 01-03-2025 End: 01-23-2025 acetaminophen-hydr ocodone 325 mg-5 mg oral tablet Dose = 1 tab(s), Oral, TID, 0 Refill(s), 98.4 Start Date: 01/03/25 Stop Date: 01/23/25 Status: Ordered Medication Dispense Status: Completed Total Allowed Fills: 1 Fills Dispensed: 0 Start: 12-25-2024 End: 12-28-2024 Start: 04-17-2024 End: 12-06-2024 Start: 04-17-2024 Hydrocodone-Ac etaminophen 5-325 mg tablet Active 1 {tbl} PO TWICE A DAY as needed 0 April 17, 2024 1:00am [id number] 200 actuat albuter ol 0.09 mg/actuat metered [...] sources) Penicillin-class Antibacterial Start: 06-10-2021 End: 08-01-2021 benzonatate 100 mg oral caps ule (20 [...] 21, 2017 12:00am July 22, 2017 11:04am colchicine 0.6 mg oral capsu le (4 sources) Start: 12-17-2024 End: 12-26-2024 ergocalciferol 0.05 mg oral capsule (20 sources) [...] 12-02-2017 End: 09-01-2022 Start: 05-07-2016 End: 12-02-2017 Magnesium (20 sources) Start: 06-04-2019 End: 06-04-2019 [...] 01, 2019 1:00am June 04, 2019 10:41am meclizine hydrochloride 25 m g oral tablet [...] oral tablet (20 sources) beta-Adrenergic Jeffrey Start: 01-09-2025 End: 01-09-2025 take 1 tablet by mouth in the morning metoprolol succinate 25 mg oral TABLET extended release Start: 01/09/25 8:00:00 AM EDT, Dose = 12.5 mg, = 0.5 tab(s), Oral, give with food, 01/08/25 14:15:00 EDT Start Date: 01/09/25 Stop Date: 01/09/25 Status: Completed Medication Dispense Status: Completed Total Allowed Fills: 1 Fills Dispensed: 0 Start: 01-04-2025 End: 01-10-2025 take 1 tablet by mouth in the morning metoprolol succinate 25 mg oral TABLET extended release Start: 01/10/25 8:00:00 AM EDT, Dose = 25 mg, = 1 tab(s), Oral, give with food, 0, 01/10/25 8:00:00 EDT Start Date: 01/10/25 Stop Date: 01/10/25 Status: Completed Medication Dispense Status: Completed Total Allowed Fills: 1 Fills Dispensed: 0 Start: 10-25-2024 Start: 12-22-2022 End: 09-16-2023 Start: [...] sources) Nitroimidazole Antimicrobial Start: 05-19-2021 End: 08-01-2021 Nut.Tx.Gluc Intol,Lf,Soy-Fiber (Glucerna 1.2 [place]) 0.06-1.2 gram-kcal/mL Liquid (20 sources) Start: 09-21-2022 End: 10-12-2023 take 1 mL by mouth three times daily at mealtime Nut.Tx.Gluc Intol,Lf,Soy-Fibe r (Glucerna 1.2 [place]) 0.06-1.2 gram-kcal/mL Liquid Discontinued [...] WITH MEALS 0 September 21, 2022 12:00am perflutren lipid microspheres (DEFINH3 [place]) 0.143 mg/mL solution 0-10 mL of mixture [...] e (20 sources) Start: 08-27-2017 End: 09-07-2017 Semaglutide (20 sources) Start: 04-17-2024 End: 05-15-2024 Start: 04-17-2024 End: 01-13-2025 Semaglutide (Ozempic) 0.25 m g or 0.5 [...] 01-21-2017 End: 08-30-2017 Start: 03-26-2016 End: 09-21-2018 vitamin b12 1 mg oral capsul e (20 sources) Vitamin B12 Start: 06-01-2019 End: 01-01-2025 Start: 04-12-2018 End: 08-26-2018 Start: 04-12-2018 End: 08-26-2018 take 1000 ug by mouth once daily Cyanocobalamin (Vitamin B-12) Discontinued 1000 MCG PO DAILY@0800 April 12, 2018 12:00am August 26, 2018 12:43pm Start: 08-30-2017 End: 08-30-2017 Problems Active Problems Problem Classification Problem Date Documented Da te Episodic/Chronic Acute and unspecified renal failure (20 sources) [id number] renal failure; Translations: [Acute kidney failure, unspecified] Onset: 5 12-01-2024 Episodic Acute myocardial infarction (20 sources) Myocardial infarction; Translations: [ST elevation (STEMI) myocardial infarction of unspecified site] Onset: 5 11-30-2024 Chronic Asthma (20 sources) Asthma; Translations: [Unspecified asthma, uncomplicated] 10-31-2024 Chronic Cardiac dysrhythmias (20 sources) Paroxysmal ventricular tachycardia; 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] 12-05-2024 Chronic Cardiac dysrhythmias (20 sources) Palpitations; Translations: [Palpitations] Onset: 06-25-202 5 Episodic Chronic kidney disease (20 sources) Chronic kidney disease stage 3; Translations: [Stage 3 chronic kidney disease] Onset: 5 12-09-2020 Chronic Chronic kidney disease (18 sources) Chronic kidney disease; Translations: [Stage 4 chronic kidney disease] Onset: 5 Chronic obstructive pulmonary disease and bronchiectasis (20 sources) Chronic obstructive lung disease; Translations: [Chronic obstructive pulmonary disease, unspecified] Onset: 5 12-09-2020 Chronic Comment on above: FEV1 is 76% Conditions associated with dizziness or vertigo (20 sources) Dizziness; Translations: [Dizziness and giddiness] Episodic Conduction disorders (4 sources) Complete atrioventricular block; Translations: [Atrioventricular block, complete] Onset: 5 Chronic Congestive heart failure; nonhypertensive (20 sources) Congestive heart failure; Translations: [Heart failure, unspecified] Onset: 5 Chronic Coronary atherosclerosis and other heart disease (20 sources) Coronary arteriosclerosis in [place] artery; Translations: [Preinfarction syndrome] Onset: 5 10-15-2016 [...] multiple wires and attempts. Procedure aborted. 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-Tq and Stent-Mid RCA x 2 Multi Link Mini Vision Rx Stent 4.0 x 28 mm 01/21/2006 Deficiency and other anemia (1 source) Iron deficiency anemia; Translations: [Iron deficiency anemia, unspecified] Episodic Deficiency and other anemia (1 source) Iron deficiency anemia, unspecified; Translations: [Iron deficiency anemia, unspecified] Onset: 5 Episodic Diabetes mellitus with complications (2 sources) Renal disorder due to type 2 diabetes mellitus; Translations: [Type 2 diabetes mellitus with diabetic nephropathy] Onset: 5 Chronic Diabetes mellitus with complications (10 sources) Diabetes mellitus with complications Diabetes mellitus [...] Onset: 5 05-27-2021 Chronic E Codes: Fall (17 sources) Fall; Translations: [Unspecified fall, initial encounter] 11-26-2024 Episodic Essential hypertension (20 sources) Hypertensive disorder; Translations: [Essential (primary) hypertension] Onset: 4 06-17-2015 Chronic Fluid and electrolyte disorders (20 sources) Lactic acidosis; Translations: [Acidosis] Onset: 5 11-26-2020 Episodic Gastrointestinal hemorrhage (13 sources) Gastrointestinal hemorrhage; Translations: [Gastrointestinal hemorrhage, unspecified] Onset: 5 12-24-2024 Episodic Hypertension with complications and secondary hypertension (2 sources) Chronic kidney disease due to hypertension; Translations: [Hypertensive chronic kidney disease with stage 1 through stage 4 chronic kidney disease, or unspecified chronic kidney disease] Onset: Chronic Immunizations and screening for infectious disease (20 [...] Onset: 6 03-18-2016 Chronic Nausea and vomiting (2 sources) Nausea; Translations: [Nausea] 12-20-2024 Episodic Nonspecific chest pain (20 sources) Chest pain; Translations: [Chest pain at rest] Onset: 5 11-29-2016 Episodic Open wounds of head; neck; and trunk (20 sources) Scalp laceration; Translations: [Laceration without foreign body of scalp, subsequent encounter] 12-09-2020 Episodic Other connective tissue disease (20 sources) Pain in lower limb; Translations: [Pain in leg, unspecified] 02-20-2021 Episodic Other diseases of kidney and ureters (1 source) Disorder of kidney and/or ureter; Translations: [Disorder of kidney and ureter, unspecified] Episodic Other diseases of kidney and ureters (1 source) Kidney disease 01-03-2025 Episodic Other diseases of kidney and ureters (1 source) Disorder of kidney and ureter, unspecified; Translations: [Disorder of kidney and ureter, unspecified] Onset: 5 Episodic Other injuries and conditions due to external causes (16 sources) Open wound with complication; Translations: [Other injury of unspecified body region, initial encounter] 12-09-2020 Episodic Other injuries and conditions due to external causes (20 sources) Open wound; Translations: [Other injury of unspecified body region, initial encounter] 12-14-2022 Episodic Other injuries and conditions due to external causes (17 sources) Abrasion; Translations: [Other injury of unspecified body region, initial encounter] 11-26-2024 Episodic Other lower respiratory disease (1 source) Chronic pulmonary edema; Translations: [Chronic pulmonary edema] Chronic Other lower respiratory disease (20 sources) Dyspnea; [...] caused by tuberculosis or sexually transmitted disease) (8 sources) Pericardial effusion; Translations: [Pericardial effusion] 12-15-2024 [...] 10-31-2024 Chronic Residual codes; unclassified (1 source) Sleep apnea 01-03-2025 Chronic Residual codes; unclassified (2 sources) Primary central sleep apnea; 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] Onset: 5 Chronic Residual codes; unclassified (20 sources) Bilateral lower limb edema; Translations: [Localized edema] 12-15-2022 Episodic Residual codes; unclassified (4 sources) Localized edema; Translations: [Edema] Onset: 5 12-15-2022 Episodic Substance-related disorders (1 source) Opioid dependence, uncomplicated; Translations: [Opioid dependence, uncomplicated] Onset: Chronic Superficial injury; contusion (20 sources) Contusion of left knee; Translations: [Contusion of left knee, initial encounter] 11-26-2024 Episodic Syncope (20 sources) Syncope; Translations: [Syncope and collapse] 11-26-2020 Episodic Thyroid disorders (2 sources) Hypothyroidism; Translations: [Hypothyroidism, unspecified] Onset: 5 Chronic Transient cerebral ischemia (20 sources) Cerebral ischemia; Translations: [Transient cerebral ischemic attack, unspecified] 01-31-2019 Chronic Unclassified (10 sources) Acute ST elevation myocardial infarction (STEMI) of inferior wall Unclassified (10 sources) Coronary vasospasm Unclassified (10 sources) History of inferior wall myocardial infarction Unclassified (10 sources) Nonsustained monomorphic ventricular tachycardia Unclassified (10 sources) Presence of stent in coronary artery Unclassified (1 source) Acidosis, unspecified; Translations: [Acidosis, unspecified] Onset: 5 Unclassified (1 source) Other pericardial effusion (noninflammatory); Translations: [Other pericardial effusion (noninflammatory)] Onset: 5 Unclassified (1 source) Ventricular tachycardia, unspecified; Translations: [Ventricular tachycardia, unspecified] Onset: 5 Unclassified (1 source) Other ventricular tachycardia; Translations: [Other ventricular tachycardia] Onset: 5 Viral infection (20 sources) Disease caused by 2019-nCoV; Translations: [COVID-19] Episodic Past or Other Problems Problem Classification Problem Date Documented Date Episodic/Chronic Deficiency and other anemia (2 sources) Anemia, unspecified; Translations: [Anemia, unspecified] Onset: 10-05-2024 Episodic Other lower respiratory disease (8 sources) [...] Facility Cardiology Visit Reporton Cardiology Visit Report Normal [facility] .Auto Diffon 01-10-2025 Basophil, Absolute 0.0 10 3/mcL Normal 0.0-0.3 [facility] Comment on above: Performed By: #### D GLENDY #### [address] [address] Basophils/100 WBC (Bld) 0.5 % Normal 0.0-2.5 [facility] Comment on above: Performed By: #### D GLENDY #### [address] [address] Eosinophil, Absolute 0.1 10 3/mcL Normal 0.0-0.7 [facility] Comment on above: Performed By: #### D GLENDY #### [address] [address] Eosinophils/100 WBC (Bld) 1.2 % Normal 0.0-6.0 [facility] Comment on above: Performed By: #### D GLENDY #### [address] [address] Lymphocyte, Absolute 1.0 10 3/mcL Normal 0.9-4.3 [facility] Comment on above: Performed By: #### D GLENDY #### [address] [address] Lymphocytes/100 WBC (Bld) 13.1 % Low 20.0-40.0 [facility] Comment on above: Performed By: #### D GLENDY #### [address] [address] Monocyte, Absolute 0.9 10 3/mcL Normal 0.1-1.4 [facility] Comment on above: Performed By: #### D GLENDY #### [address] [address] Monocytes/100 WBC (Bld) 11.2 % Normal 2.0-13.0 [facility] Comment on above: Performed By: #### D GLENDY #### [address] [address] Neutrophils/100 WBC (Bld) 74.0 % Normal 50.0-75.0 [facility] Comment on above: Performed By: #### D GLENDY #### [address] [address] .GFRon 01-10-2025 Estimated Glomerular Filtration Rate 50 ml/min/1.73sqm Normal [facility] Comment on above: Result Comment: Stages of Chronic Kidney Disease (CKD) Stage Description eGFR(ml/min/1.73 sq.m.) CKD 1 Normal kidney function or >=90 normal kindney function with possible kidney damage (ex. Proteinuria) CKD 2 Kidney damage with mild loss 60-89 of kidney function CKD 3a Mild to moderate loss of kidney 45-59 function CKD 3b Moderate to severe loss of 30-44 of kindey function CKD 4 Severe loss of kidney function 15-29 CKD 5 Kidney failure <15 Note: (go live 2024) the eGFR calculation was updated to the 2020 CKD-EPI creatinine equation without a race factor to calculate the eGFR results. Performed By: #### G FR, HFP, ANEU, ADIFF, MG, CBC, BMP #### [address] [address] .NEUABSon 01-10-2025 Neutrophil, Absolute 5.6 10 3/mcL Normal 2.3-8.1 [facility] Comment on above: Performed By: #### G FR, HFP, ANEU, ADIFF, MG, CBC, BMP #### [address] [address] BMPon 01-10-2025 BUN/Creatinine Ratio 9.2 ratio Low 10.0-22.0 [facility] Comment on above: Performed By: #### G FR, HFP, ANEU, ADIFF, MG, CBC, BMP #### [address] [address] Calcium [Mass/Vol] 9.2 mg/dL Normal 8.7-10.4 [facility] Comment on above: Performed By: #### G FR, HFP, ANEU, ADIFF, MG, CBC, BMP #### [address] [address] Chloride [Moles/Vol] 104 mmol/L Normal 98-110 [facility] Comment on above: Performed By: #### G FR, HFP, ANEU, ADIFF, MG, CBC, BMP #### [address] [address] CO2 [Moles/Vol] 25 mmol/L Normal 22-32 [facility] Comment on above: Performed By: #### G FR, HFP, ANEU, ADIFF, MG, CBC, BMP #### [address] [address] Creatinine [Mass/Vol] 1.42 mg/dL High 0.60-1.40 [facility] Comment on above: Result Comment: Test ing performed on FRM Study Course analyzer using enzymatic creatinine methodology. Performed By: #### G FR, HFP, ANEU, ADIFF, MG, CBC, BMP #### [address] [address] Electrolyte Balance 12.0 mEq/L Normal 4.0-15.0 [facility] Comment on above: Performed By: #### G FR, HFP, ANEU, ADIFF, MG, CBC, BMP #### [address] [address] Glucose [Mass/Vol] 151 mg/dL High 82-115 [facility] Comment on above: Performed By: #### G FR, HFP, ANEU, ADIFF, MG, CBC, BMP #### [address] [address] Potassium [Moles/Vol] 3.6 mmol/L Normal 3.5-5.0 [facility] Comment on above: Performed By: #### G FR, HFP, ANEU, ADIFF, MG, CBC, BMP #### [address] [address] Sodium [Moles/Vol] 141 mmol/L Normal 136-145 [facility] Comment on above: Performed By: #### G FR, HFP, ANEU, ADIFF, MG, CBC, BMP #### [address] [address] Urea nitrogen [Mass/Vol] 13.0 mg/dL Normal 8.0-22.0 [facility] Comment on above: Performed By: #### G FR, HFP, ANEU, ADIFF, MG, CBC, BMP #### [place] [id number] CBCon 01-10-2025 Erythrocyte distribution width (RBC) [Ratio] 15.7 % High 11.5-15.5 [facility] Comment on above: Performed By: #### D GLENDY #### [place] [address] Hematocrit (Bld) [Volume fraction] 37.0 % Low 40.0-52.0 [facility] Comment on above: Performed By: #### D GLENDY #### [place] [address] Hgb 12.0 G/dL Low 13.0-17.5 [facility] Comment on above: Performed By: #### D GLENDY #### [place] [address] MCH (RBC) [Entitic mass] 28.5 pg Normal 27.0-33.0 [facility] Comment on above: Performed By: #### D GLENDY #### [place] [address] MCHC 32.4 G/dL Normal 32.0-36.0 [facility] Comment on above: Performed By: #### D GLENDY #### [place] [address] MCV (RBC) [Entitic vol] 87.9 fL Normal 81.0-100.0 [facility] Comment on above: Performed By: #### D GLENDY #### [place] [address] Platelet 171 10 3/mcL Normal 150-450 [facility] Comment on above: Performed By: #### D GLENDY #### [place] [id number] Platelet mean volume (Bld) [Entitic vol] 10.8 fL High 6.4-10.5 [facility] Comment on above: Performed By: #### D GLENDY #### [place] [address] RBC 4.21 10 6/mcL Low 4.50-6.00 [facility] Comment on above: Performed By: #### D GLENDY #### [place] [address] WBC 7.6 10 3/mcL Normal 4.5-10.8 [facility] Comment on above: Performed By: #### D GLENDY #### [place] [address] HFPon 01-10-2025 Bili Indirect 0.5 mg/dL Normal 0.1-10.0 [facility] Comment on above: Performed By: #### G FR, HFP, ANEU, ADIFF, MG, CBC, BMP #### [place] [address] Albumin Level 2.9 G/dL Low 3.2-4.8 [facility] Comment on above: Performed By: #### G FR, HFP, ANEU, ADIFF, MG, CBC, BMP #### [place] [address] Albumin/Globulin [Mass ratio] 0.8 {ratio} Low 0.9-1.6 [facility] Comment on above: Performed By: #### G FR, HFP, ANEU, ADIFF, MG, CBC, BMP #### [place] [address] ALP [Catalytic activity/Vol] 128 U/L High 38-126 [facility] Comment on above: Performed By: #### G FR, HFP, ANEU, ADIFF, MG, CBC, BMP #### [place] [address] ALT [Catalytic activity/Vol] 56 U/L High 12-55 [facility] Comment on above: Performed By: #### G FR, HFP, ANEU, ADIFF, MG, CBC, BMP #### [place] [address] AST [Catalytic activity/Vol] 27 U/L Normal 8-34 [facility] Comment on above: Performed By: #### G FR, HFP, ANEU, ADIFF, MG, CBC, BMP #### [place] [address] Bili Direct 0.2 mg/dL Normal 0.0-0.4 [facility] Comment on above: Result Comment: Use of this assay is not recommended for patients undergoing treatment with eltrombopag due to the potential for falsely elevated results. Performed By: #### G FR, HFP, ANEU, ADIFF, MG, CBC, BMP #### [place] [address] Bili Total 0.70 mg/dL Normal 0.20-1.20 [facility] Comment on above: Result Comment: Use of this assay is not recommended for patients undergoing treatment with eltrombopag due to the potential for falsely elevated results. Performed By: #### G FR, HFP, ANEU, ADIFF, MG, CBC, BMP #### [place] [address] Globulin 3.5 G/dL Normal 2.5-4.2 [facility] Comment on above: Performed By: #### G FR, HFP, ANEU, ADIFF, MG, CBC, BMP #### [place] [address] Total Protein 6.4 G/dL Normal 5.7-8.2 [facility] Comment on above: Performed By: #### G FR, HFP, ANEU, ADIFF, MG, CBC, BMP #### [place] [address] LABORATORYOrdered By: Danny Harrison on 01-10-2025 Blood Glucose Testing Reason Routine (01/10/25 11:14 AM) [facility] Work Phone: Glucose [Mass/Vol] 151 mg/dL High 82 - 115 mg/dL [facility] Work Phone: LABORATORYOrdered By: Kristyn William on 01-10-2025 Blood Glucose Testing Reason Routine (01/10/25 7:34 AM) [facility] Work Phone: Glucose [Mass/Vol] 133 mg/dL High 82 - 115 mg/dL [facility] Work Phone: LABORATORYOrdered By: SYSTEM SYSTEM on 01-10-2025 Albumin BCP dye [Mass/Vol] 2.9 G/dL Low 3.2 - 4.8 G/dL ADM SS Albumin/Globulin [Mass ratio] 0.8 {ratio} Low 0.9 - 1.6 ratio AH ADM SS ALP [Catalytic activity/Vol] 128 U/L High 38 - 126 U/L AH ADM SS ALT No additional P-5'-P [Catalytic activity/Vol] 56 U/L High 12 - 55 U/L AH ADM SS AST [Catalytic activity/Vol] 27 U/L Normal 8 - 34 U/L AH ADM SS Basophils (Bld) [#/Vol] 0.0 103/mcL Normal 0.0 - 0.3 10^3/mcL Workflow SS Basophils/100 WBC (Bld) 0.5 % Normal 0.0 - 2.5 % Workflow SS Bili Indirect 0.5 mg/dL Normal 0.1 - 10.0 mg/dL Chemistry S Bilirubin [Mass/Vol] 0.70 mg/dL Normal 0.20 - 1.20 mg/dL AH ADM SS Comment on above: Interpretive Data: U se of this assay is not recommended for patients undergoing treatment with eltrombopag due to the potential for falsely elevated results. Bilirubin.conjugated [Mass/Vol] 0.2 mg/dL Normal 0.0 - 0.4 mg/dL ADM SS Comment on above: Interpretive Data: U se of this assay is not recommended for patients undergoing treatment with eltrombopag due to the potential for falsely elevated results. Calcium [Mass/Vol] 9.2 mg/dL Normal 8.7 - 10. 4 mg/dL AH ADM SS Chloride [Moles/Vol] 104 mmol/L Normal 98 - 11 0 mEq/L AH ADM SS CO2 [Moles/Vol] 25 mmol/L Normal 22 - 32 mEq/L AH ADM SS Creatinine [Mass/Vol] 1.42 mg/dL High 0.60 - 1.40 mg/dL AH ADM SS Comment on above: Interpretive Data: T esting performed on FRM Study Course analyzer using enzymatic creatinine methodology. Electrolyte Balance 12.0 mEq/L Normal 4.0 - 15 .0 mEq/L ADM SS Eosinophils (Bld) [#/Vol] 0.1 103/mcL Normal 0.0 - 0.7 10^3/mcL Workflow SS Eosinophils/100 WBC (Bld) 1.2 % Normal 0.0 - 6.0 % Workflow SS Erythrocyte distribution width (RBC) [Ratio] 15.7 % High 11.5 - 15.5 % Workflow SS Estimated Glomerular Filtration Rate 50 ml/min/1.73sqm Invalid Interpretation Code [facility] SS Comment on above: Interpretive Data: Stages of Chronic Kidney Disease (CKD) Stage Description eGFR(ml/min/1.73 sq.m.) CKD 1 Normal kidney function or >=90 normal kindney function with possible kidney damage (ex. Proteinuria) CKD 2 Kidney damage with mild loss 60-89 of kidney function CKD 3a Mild to moderate loss of kidney 45-59 function CKD 3b Moderate to severe loss of 30-44 of kindey function CKD 4 Severe loss of kidney function 15-29 CKD 5 Kidney failure <15 Note: (go live 2024) the eGFR calculation was updated to the 2020 CKD-EPI creatinine equation without a race factor to calculate the eGFR results. Globulin 3.5 G/dL Normal 2.5 - 4.2 G/dL ADM SS Glucose [Mass/Vol] 151 mg/dL High 82 - 115 mg/dL ADM SS Hematocrit (Bld) [Volume fraction] 37.0 % Low 40.0 - 52.0 % Workflow SS Hemoglobin (Bld) [Mass/Vol] 12.0 G/dL Low 13.0 - 17.5 G/dL Workflow SS Lymphocytes (Bld) [#/Vol] 1.0 103/mcL Normal 0.9 - 4.3 10^3/mcL Workflow SS Lymphocytes/100 WBC (Bld) 13.1 % Low 20.0 - 40.0 % Workflow SS Magnesium [Mass/Vol] 2.2 mg/dL Normal 1.6 - 2 .4 mg/dL ADM SS MCH (RBC) [Entitic mass] 28.5 pg Normal 27.0 - 33.0 pg Workflow SS MCHC 32.4 G/dL Normal 32.0 - 36.0 G/dL Workflow SS MCV (RBC) [Entitic vol] 87.9 fL Normal 81.0 - 100.0 fL Workflow SS Monocytes (Bld) [#/Vol] 0.9 103/mcL Normal 0.1 - 1.4 10^3/mcL AH Workflow SS Monocytes/100 WBC (Bld) 11.2 % Normal 2.0 - 13.0 % AH Workflow SS Neutrophils (Bld) [#/Vol] 5.6 103/mcL Normal 2.3 - 8.1 10^3/mcL AH Workflow SS Neutrophils/100 WBC (Bld) 74.0 % Normal 50.0 - 75.0 % AH Workflow SS Platelet mean volume (Bld) [Entitic vol] 10.8 fL High 6.4 - 10.5 fL AH Workflow SS Platelets (Bld) [#/Vol] 171 103/mcL Normal 150 - 450 10^3/mcL AH Workflow SS Potassium [Moles/Vol] 3.6 mmol/L Normal 3.5 - 5.0 mEq/L AH ADM SS Protein [Mass/Vol] 6.4 G/dL Normal 5.7 - 8.2 G/dL ADM SS RBC (Bld) [#/Vol] 4.21 106/mcL Low 4.50 - 6.00 10^6/mcL AH Workflow SS Sodium [Moles/Vol] 141 mmol/L Normal 136 - 145 mEq/L ADM SS Urea nitrogen [Mass/Vol] 13.0 mg/dL Normal 8.0 - 22.0 mg/dL ADM SS Urea nitrogen/Creatinine [Mass ratio] 9.2 ratio Low 10.0 - 22.0 ratio AH ADM SS WBC (Bld) [#/Vol] 7.6 103/mcL Normal 4.5 - 10.8 10^3/mcL Workflow SS MGon 01-10-2025 Magnesium [Mass/Vol] 2.2 mg/dL Normal 1.6-2.4 [facility] Comment on above: Performed By: #### G FR, HFP, ANEU, ADIFF, MG, CBC, BMP #### [address] [address] .Auto Diffon 01-09-2025 Basophil, Absolute 0.0 10 3/mcL Normal 0.0-0.3 [facility] Comment on above: Performed By: #### D GLENDY #### [address] [address] Basophils/100 WBC (Bld) 0.3 % Normal 0.0-2.5 [facility] Comment on above: Performed By: #### D GLENDY #### [address] [address] Eosinophil, Absolute 0.1 10 3/mcL Normal 0.0-0.7 [facility] Comment on above: Performed By: #### D GLENDY #### [address] [address] Eosinophils/100 WBC (Bld) 1.3 % Normal 0.0-6.0 [facility] Comment on above: Performed By: #### D GLENDY #### [address] [address] Lymphocyte, Absolute 1.1 10 3/mcL Normal 0.9-4.3 [facility] Comment on above: Performed By: #### D GLENDY #### [address] [address] Lymphocytes/100 WBC (Bld) 19.1 % Low 20.0-40.0 [facility] Comment on above: Performed By: #### D GLENDY #### [address] [address] Monocyte, Absolute 0.7 10 3/mcL Normal 0.1-1.4 [facility] Comment on above: Performed By: #### D GLENDY #### [address] [address] Monocytes/100 WBC (Bld) 12.4 % Normal 2.0-13.0 [facility] Comment on above: Performed By: #### D GLENDY #### [address] [address] Neutrophils/100 WBC (Bld) 66.9 % Normal 50.0-75.0 [facility] Comment on above: Performed By: #### D GLENDY #### [address] [address] .GFRon 01-09-2025 Estimated Glomerular Filtration Rate 56 ml/min/1.73sqm Normal [facility] Comment on above: Result Comment: Stages of Chronic Kidney Disease (CKD) Stage Description eGFR(ml/min/1.73 sq.m.) CKD 1 Normal kidney function or >=90 normal kindney function with possible kidney damage (ex. Proteinuria) CKD 2 Kidney damage with mild loss 60-89 of kidney function CKD 3a Mild to moderate loss of kidney 45-59 function CKD 3b Moderate to severe loss of 30-44 of kindey function CKD 4 Severe loss of kidney function 15-29 CKD 5 Kidney failure <15 Note: (go live 2024) the eGFR calculation was updated to the 2020 CKD-EPI creatinine equation without a race factor to calculate the eGFR results. Performed By: #### D GLENDY #### [address] [address] .NEUABSon 01-09-2025 Neutrophil, Absolute 3.9 10 3/mcL Normal 2.3-8.1 [facility] Comment on above: Performed By: #### D GLENDY #### [address] [address] BMPon 01-09-2025 BUN/Creatinine Ratio 9.2 ratio Low 10.0-22.0 [facility] Comment on above: Performed By: #### D GLENDY #### [address] [address] Calcium [Mass/Vol] 8.8 mg/dL Normal 8.7-10.4 [facility] Comment on above: Performed By: #### D GLENDY #### [address] [address] Chloride [Moles/Vol] 104 mmol/L Normal 98-110 [facility] Comment on above: Performed By: #### D GLENDY #### [address] [address] CO2 [Moles/Vol] 28 mmol/L Normal 22-32 [facility] Comment on above: Performed By: #### D GLENDY #### [address] [address] Creatinine [Mass/Vol] 1.30 mg/dL Normal 0.60-1.40 [facility] Comment on above: Result Comment: Test ing performed on FRM Study Course analyzer using enzymatic creatinine methodology. Performed By: #### D GLENDY #### [address] [address] Electrolyte Balance 9.0 mEq/L Normal 4.0-15.0 [facility] Comment on above: Performed By: #### D GLENDY #### [place] [id number] Glucose [Mass/Vol] 103 mg/dL Normal 82-115 [facility] Comment on above: Performed By: #### D GLENDY #### [place] [address] Potassium [Moles/Vol] 3.3 mmol/L Low 3.5-5.0 [facility] Comment on above: Performed By: #### D GLENDY #### [place] [address] Sodium [Moles/Vol] 141 mmol/L Normal 136-145 [facility] Comment on above: Performed By: #### D GLENDY #### [place] [address] Urea nitrogen [Mass/Vol] 12.0 mg/dL Normal 8.0-22.0 [facility] Comment on above: Performed By: #### D GLENDY #### [place] [address] CBCon 01-09-2025 Erythrocyte distribution width (RBC) [Ratio] 15.7 % High 11.5-15.5 [facility] Comment on above: Performed By: #### G FR, CBC, ANEU, ADIFF, MG, BMP, HFP #### [place] [id number] Hematocrit (Bld) [Volume fraction] 33.1 % Low 40.0-52.0 [facility] Comment on above: Performed By: #### G FR, CBC, ANEU, ADIFF, MG, BMP, HFP #### [place] [id number] Hgb 10.9 G/dL Low 13.0-17.5 [facility] Comment on above: Performed By: #### G FR, CBC, ANEU, ADIFF, MG, BMP, HFP #### [address] [address] MCH (RBC) [Entitic mass] 29.1 pg Normal 27.0-33.0 [facility] Comment on above: Performed By: #### G FR, CBC, ANEU, ADIFF, MG, BMP, HFP #### [place] [address] MCHC 32.8 G/dL Normal 32.0-36.0 [facility] Comment on above: Performed By: #### G FR, CBC, ANEU, ADIFF, MG, BMP, HFP #### [place] [address] MCV (RBC) [Entitic vol] 88.8 fL Normal 81.0-100.0 [facility] Comment on above: Performed By: #### G FR, CBC, ANEU, ADIFF, MG, BMP, HFP #### [place] [address] Platelet 150 10 3/mcL Normal 150-450 [facility] Comment on above: Performed By: #### G FR, CBC, ANEU, ADIFF, MG, BMP, HFP #### [place] [address] Platelet mean volume (Bld) [Entitic vol] 11.2 fL High 6.4-10.5 [facility] Comment on above: Performed By: #### G FR, CBC, ANEU, ADIFF, MG, BMP, HFP #### [place] [address] RBC 3.73 10 6/mcL Low 4.50-6.00 [facility] Comment on above: Performed By: #### G FR, CBC, ANEU, ADIFF, MG, BMP, HFP #### [place] [address] WBC 5.8 10 3/mcL Normal 4.5-10.8 [facility] Comment on above: Performed By: #### G FR, CBC, ANEU, ADIFF, MG, BMP, HFP #### [place] [address] HFPon 01-09-2025 Bili Indirect 0.6 mg/dL Normal 0.1-10.0 [facility] Comment on above: Performed By: #### D GLENDY #### [place] [address] Albumin Level 2.8 G/dL Low 3.2-4.8 [facility] Comment on above: Performed By: #### D GLENDY #### [place] [address] Albumin/Globulin [Mass ratio] 0.8 {ratio} Low 0.9-1.6 [facility] Comment on above: Performed By: #### D GLENDY #### [place] [address] ALP [Catalytic activity/Vol] 107 U/L Normal 38-126 [facility] Comment on above: Performed By: #### D GLENDY #### [place] [address] ALT [Catalytic activity/Vol] 69 U/L High 12-55 [facility] Comment on above: Performed By: #### D GLENDY #### [place] [address] AST [Catalytic activity/Vol] 26 U/L Normal 8-34 [facility] Comment on above: Performed By: #### D GLENDY #### [place] [address] Bili Direct 0.3 mg/dL Normal 0.0-0.4 [facility] Comment on above: Result Comment: Use of this assay is not recommended for patients undergoing treatment with eltrombopag due to the potential for falsely elevated results. Performed By: #### D GLENDY #### [place] [address] Bili Total 0.90 mg/dL Normal 0.20-1.20 [facility] Comment on above: Result Comment: Use of this assay is not recommended for patients undergoing treatment with eltrombopag due to the potential for falsely elevated results. Performed By: #### D GLENDY #### [place] [address] Globulin 3.3 G/dL Normal 2.5-4.2 [facility] Comment on above: Performed By: #### D GLENDY #### [facility] [address] [place] [address] Total Protein 6.1 G/dL Normal 5.7-8.2 [facility] Comment on above: Performed By: #### D GLENDY #### [facility] [address] [place] [id number] LABORATORYOrdered By: Julieta Farr on 01-09-2025 Blood Glucose Testing Reason Routine (01/09/25 9:04 PM) [facility] Work Phone: Glucose [Mass/Vol] 145 mg/dL High 82 - 115 mg/dL [facility] Work Phone: LABORATORYOrdered By: SYSTEM SYSTEM on 01-09-2025 Albumin BCP dye [Mass/Vol] 2.8 G/dL Low 3.2 - 4.8 G/dL ADM SS Albumin/Globulin [Mass ratio] 0.8 {ratio} Low 0.9 - 1.6 ratio ADM SS ALP [Catalytic activity/Vol] 107 U/L Normal 38 - 126 U/L ADM SS ALT No additional P-5'-P [Catalytic activity/Vol] 69 U/L High 12 - 55 U/L ADM SS AST [Catalytic activity/Vol] 26 U/L Normal 8 - 34 U/L ADM SS Basophils (Bld) [#/Vol] 0.0 103/mcL Normal 0.0 - 0.3 10^3/mcL Workflow SS Basophils/100 WBC (Bld) 0.3 % Normal 0.0 - 2.5 % Workflow SS Bili Indirect 0.6 mg/dL Normal 0.1 - 10.0 mg/dL Chemistry S Bilirubin [Mass/Vol] 0.90 mg/dL Normal 0.20 - 1.20 mg/dL ADM SS Comment on above: Interpretive Data: U se of this assay is not recommended for patients undergoing treatment with eltrombopag due to the potential for falsely elevated results. Bilirubin.conjugated [Mass/Vol] 0.3 mg/dL Normal 0.0 - 0.4 mg/dL ADM SS Comment on above: Interpretive Data: U se of this assay is not recommended for patients undergoing treatment with eltrombopag due to the potential for falsely elevated results. Calcium [Mass/Vol] 8.8 mg/dL Normal 8.7 - 10. 4 mg/dL ADM SS Chloride [Moles/Vol] 104 mmol/L Normal 98 - 11 0 mEq/L ADM SS CO2 [Moles/Vol] 28 mmol/L Normal 22 - 32 mEq/L ADM SS Creatinine [Mass/Vol] 1.30 mg/dL Normal 0.60 - 1.40 mg/dL ADM SS Comment on above: Interpretive Data: T esting performed on FRM Study Course analyzer using enzymatic creatinine methodology. Electrolyte Balance 9.0 mEq/L Normal 4.0 - 15 .0 mEq/L ADM SS Eosinophils (Bld) [#/Vol] 0.1 103/mcL Normal 0.0 - 0.7 10^3/mcL Workflow SS Eosinophils/100 WBC (Bld) 1.3 % Normal 0.0 - 6.0 % Workflow SS Erythrocyte distribution width (RBC) [Ratio] 15.7 % High 11.5 - 15.5 % Workflow SS Estimated Glomerular Filtration Rate 56 ml/min/1.73sqm Invalid Interpretation Code ADM SS Comment on above: Interpretive Data: Stages of Chronic Kidney Disease (CKD) Stage Description eGFR(ml/min/1.73 sq.m.) CKD 1 Normal kidney function or >=90 normal kindney function with possible kidney damage (ex. Proteinuria) CKD 2 Kidney damage with mild loss 60-89 of kidney function CKD 3a Mild to moderate loss of kidney 45-59 function CKD 3b Moderate to severe loss of 30-44 of kindey function CKD 4 Severe loss of kidney function 15-29 CKD 5 Kidney failure <15 Note: (go live 2024) the eGFR calculation was updated to the 2020 CKD-EPI creatinine equation without a race factor to calculate the eGFR results. Globulin 3.3 G/dL Normal 2.5 - 4.2 G/dL ADM SS Glucose [Mass/Vol] 103 mg/dL Normal 82 - 115 mg/dL ADM SS Hematocrit (Bld) [Volume fraction] 33.1 % Low 40.0 - 52.0 % Workflow SS Hemoglobin (Bld) [Mass/Vol] 10.9 G/dL Low 13.0 - 17.5 G/dL AH Workflow SS Lymphocytes (Bld) [#/Vol] 1.1 103/mcL Normal 0.9 - 4.3 10^3/mcL AH Workflow SS Lymphocytes/100 WBC (Bld) 19.1 % Low 20.0 - 40.0 % AH Workflow SS Magnesium [Mass/Vol] 2.1 mg/dL Normal 1.6 - 2 .4 mg/dL AH ADM SS MCH (RBC) [Entitic mass] 29.1 pg Normal 27.0 - 33.0 pg AH Workflow SS MCHC 32.8 G/dL Normal 32.0 - 36.0 G/dL AH Workflow SS MCV (RBC) [Entitic vol] 88.8 fL Normal 81.0 - 100.0 fL AH Workflow SS Monocytes (Bld) [#/Vol] 0.7 103/mcL Normal 0.1 - 1.4 10^3/mcL AH Workflow SS Monocytes/100 WBC (Bld) 12.4 % Normal 2.0 - 13.0 % AH Workflow SS Neutrophils (Bld) [#/Vol] 3.9 103/mcL Normal 2.3 - 8.1 10^3/mcL AH Workflow SS Neutrophils/100 WBC (Bld) 66.9 % Normal 50.0 - 75.0 % Workflow SS Platelet mean volume (Bld) [Entitic vol] 11.2 fL High 6.4 - 10.5 fL AH Workflow SS Platelets (Bld) [#/Vol] 150 103/mcL Normal 150 - 450 10^3/mcL AH Workflow SS Potassium [Moles/Vol] 3.3 mmol/L Low 3.5 - 5.0 mEq/L ADM SS Protein [Mass/Vol] 6.1 G/dL Normal 5.7 - 8.2 G/dL AH ADM SS RBC (Bld) [#/Vol] 3.73 106/mcL Low 4.50 - 6.00 10^6/mcL AH Workflow SS Sodium [Moles/Vol] 141 mmol/L Normal 136 - 145 mEq/L AH ADM SS Urea nitrogen [Mass/Vol] 12.0 mg/dL Normal 8.0 - 22.0 mg/dL AH ADM SS Urea nitrogen/Creatinine [Mass ratio] 9.2 ratio Low 10.0 - 22.0 ratio ADM SS WBC (Bld) [#/Vol] 5.8 103/mcL Normal 4.5 - 10.8 10^3/mcL AH Workflow SS MGon 01-09-2025 Magnesium [Mass/Vol] 2.1 mg/dL Normal 1.6-2.4 [facility] Comment on above: Performed By: #### D GLENDY #### [address] [address] .Auto Diffon 01-08-2025 Basophil, Absolute 0.0 10 3/mcL Normal 0.0-0.3 [facility] Comment on above: Performed By: #### G FR, CBC, ANEU, ADIFF, MG, BMP, HFP #### [address] [address] Basophils/100 WBC (Bld) 0.3 % Normal 0.0-2.5 [facility] Comment on above: Performed By: #### G FR, CBC, ANEU, ADIFF, MG, BMP, HFP #### [address] [address] Eosinophil, Absolute 0.1 10 3/mcL Normal 0.0-0.7 [facility] Comment on above: Performed By: #### G FR, CBC, ANEU, ADIFF, MG, BMP, HFP #### [address] [address] Eosinophils/100 WBC (Bld) 1.2 % Normal 0.0-6.0 [facility] Comment on above: Performed By: #### G FR, CBC, ANEU, ADIFF, MG, BMP, HFP #### [address] [address] Lymphocyte, Absolute 0.9 10 3/mcL Normal 0.9-4.3 [facility] Comment on above: Performed By: #### G FR, CBC, ANEU, ADIFF, MG, BMP, HFP #### [address] [address] Lymphocytes/100 WBC (Bld) 15.5 % Low 20.0-40.0 [facility] Comment on above: Performed By: #### G FR, CBC, ANEU, ADIFF, MG, BMP, HFP #### [address] [address] Monocyte, Absolute 0.7 10 3/mcL Normal 0.1-1.4 [facility] Comment on above: Performed By: #### G FR, CBC, ANEU, ADIFF, MG, BMP, HFP #### [address] [address] Monocytes/100 WBC (Bld) 11.6 % Normal 2.0-13.0 [facility] Comment on above: Performed By: #### G FR, CBC, ANEU, ADIFF, MG, BMP, HFP #### [address] [address] Neutrophils/100 WBC (Bld) 71.4 % Normal 50.0-75.0 [facility] Comment on above: Performed By: #### G FR, CBC, ANEU, ADIFF, MG, BMP, HFP #### [place] [address] .GFRon 01-08-2025 Estimated Glomerular Filtration Rate 57 ml/min/1.73sqm Normal [facility] Comment on above: Result Comment: Stages of Chronic Kidney Disease (CKD) Stage Description eGFR(ml/min/1.73 sq.m.) CKD 1 Normal kidney function or >=90 normal kindney function with possible kidney damage (ex. Proteinuria) CKD 2 Kidney damage with mild loss 60-89 of kidney function CKD 3a Mild to moderate loss of kidney 45-59 function CKD 3b Moderate to severe loss of 30-44 of kindey function CKD 4 Severe loss of kidney function 15-29 CKD 5 Kidney failure <15 Note: (go live 2024) the eGFR calculation was updated to the 2020 CKD-EPI creatinine equation without a race factor to calculate the eGFR results. Performed By: #### G FR, CBC, ANEU, ADIFF, MG, BMP, HFP #### [place] [address] .NEUABSon 01-08-2025 Neutrophil, Absolute 4.1 10 3/mcL Normal 2.3-8.1 [facility] Comment on above: Performed By: #### G FR, CBC, ANEU, ADIFF, MG, BMP, HFP #### [place] [address] BMPon 01-08-2025 BUN/Creatinine Ratio 12.5 ratio Normal 10.0-22.0 [facility] Comment on above: Performed By: #### G FR, CBC, ANEU, ADIFF, MG, BMP, HFP #### [address] [address] Calcium [Mass/Vol] 8.4 mg/dL Low 8.7-10.4 [facility] Comment on above: Performed By: #### G FR, CBC, ANEU, ADIFF, MG, BMP, HFP #### [place] [address] Chloride [Moles/Vol] 104 mmol/L Normal 98-110 [facility] Comment on above: Performed By: #### G FR, CBC, ANEU, ADIFF, MG, BMP, HFP #### [address] [address] CO2 [Moles/Vol] 26 mmol/L Normal 22-32 [facility] Comment on above: Performed By: #### G FR, CBC, ANEU, ADIFF, MG, BMP, HFP #### [address] [address] Creatinine [Mass/Vol] 1.28 mg/dL Normal 0.60-1.40 [facility] Comment on above: Result Comment: Test ing performed on FRM Study Course analyzer using enzymatic creatinine methodology. Performed By: #### G FR, CBC, ANEU, ADIFF, MG, BMP, HFP #### [place] [id number] Electrolyte Balance 11.0 mEq/L Normal 4.0-15.0 [facility] Comment on above: Performed By: #### G FR, CBC, ANEU, ADIFF, MG, BMP, HFP #### [place] [phone] Glucose [Mass/Vol] 110 mg/dL Normal 82-115 [facility] Comment on above: Performed By: #### G FR, CBC, ANEU, ADIFF, MG, BMP, HFP #### [place] [id number] Potassium [Moles/Vol] 3.2 mmol/L Low 3.5-5.0 [facility] Comment on above: Performed By: #### G FR, CBC, ANEU, ADIFF, MG, BMP, HFP #### [place] [id number] Sodium [Moles/Vol] 141 mmol/L Normal 136-145 [facility] Comment on above: Performed By: #### G FR, CBC, ANEU, ADIFF, MG, BMP, HFP #### [place] [address] Urea nitrogen [Mass/Vol] 16.0 mg/dL Normal 8.0-22.0 [facility] Comment on above: Performed By: #### G FR, CBC, ANEU, ADIFF, MG, BMP, HFP #### [place] [id number] CBCon 01-08-2025 Erythrocyte distribution width (RBC) [Ratio] 15.3 % Normal 11.5-15.5 [facility] Comment on above: Performed By: #### G FR, CBC, ANEU, ADIFF, MG, BMP, HFP #### [place] [id number] Hematocrit (Bld) [Volume fraction] 31.9 % Low 40.0-52.0 [facility] Comment on above: Performed By: #### G FR, CBC, ANEU, ADIFF, MG, BMP, HFP #### [place] [address] Hgb 10.6 G/dL Low 13.0-17.5 [facility] Comment on above: Performed By: #### G FR, CBC, ANEU, ADIFF, MG, BMP, HFP #### [place] [address] MCH (RBC) [Entitic mass] 28.9 pg Normal 27.0-33.0 [facility] Comment on above: Performed By: #### G FR, CBC, ANEU, ADIFF, MG, BMP, HFP #### [place] [address] MCHC 33.1 G/dL Normal 32.0-36.0 [facility] Comment on above: Performed By: #### G FR, CBC, ANEU, ADIFF, MG, BMP, HFP #### [place] [address] MCV (RBC) [Entitic vol] 87.2 fL Normal 81.0-100.0 [facility] Comment on above: Performed By: #### G FR, CBC, ANEU, ADIFF, MG, BMP, HFP #### [place] [address] Platelet 143 10 3/mcL Low 150-450 [facility] Comment on above: Performed By: #### G FR, CBC, ANEU, ADIFF, MG, BMP, HFP #### [place] [address] Platelet mean volume (Bld) [Entitic vol] 11.1 fL High 6.4-10.5 [facility] Comment on above: Performed By: #### G FR, CBC, ANEU, ADIFF, MG, BMP, HFP #### [place] [address] RBC 3.65 10 6/mcL Low 4.50-6.00 [facility] Comment on above: Performed By: #### G FR, CBC, ANEU, ADIFF, MG, BMP, HFP #### [place] [address] WBC 5.7 10 3/mcL Normal 4.5-10.8 [facility] Comment on above: Performed By: #### G FR, CBC, ANEU, ADIFF, MG, BMP, HFP #### [address] 01-08-2025 Bili Indirect 0.7 mg/dL Normal 0.1-10.0 [facility] Comment on above: Performed By: #### G FR, CBC, ANEU, ADIFF, MG, BMP, HFP #### [place] [address] Albumin Level 2.6 G/dL Low 3.2-4.8 [facility] Comment on above: Performed By: #### G FR, CBC, ANEU, ADIFF, MG, BMP, HFP #### [place] [address] Albumin/Globulin [Mass ratio] 0.8 {ratio} Low 0.9-1.6 [facility] Comment on above: Performed By: #### G FR, CBC, ANEU, ADIFF, MG, BMP, HFP #### [place] [address] ALP [Catalytic activity/Vol] 111 U/L Normal 38-126 [facility] Comment on above: Performed By: #### G FR, CBC, ANEU, ADIFF, MG, BMP, HFP #### [place] [address] ALT [Catalytic activity/Vol] 106 U/L High 12-55 [facility] Comment on above: Performed By: #### G FR, CBC, ANEU, ADIFF, MG, BMP, HFP #### [place] [address] AST [Catalytic activity/Vol] 43 U/L High 8-34 [facility] Comment on above: Performed By: #### G FR, CBC, ANEU, ADIFF, MG, BMP, HFP #### [place] [address] Bili Direct 0.3 mg/dL Normal 0.0-0.4 [facility] Comment on above: Result Comment: Use of this assay is not recommended for patients undergoing treatment with eltrombopag due to the potential for falsely elevated results. Performed By: #### G FR, CBC, ANEU, ADIFF, MG, BMP, HFP #### [place] [address] Bili Total 1.00 mg/dL Normal 0.20-1.20 [facility] Comment on above: Result Comment: Use of this assay is not recommended for patients undergoing treatment with eltrombopag due to the potential for falsely elevated results. Performed By: #### G FR, CBC, ANEU, ADIFF, MG, BMP, HFP #### [place] [address] Globulin 3.4 G/dL Normal 2.5-4.2 [facility] Comment on above: Performed By: #### G FR, CBC, ANEU, ADIFF, MG, BMP, HFP #### [address] [address] Total Protein 6.0 G/dL Normal 5.7-8.2 [facility] Comment on above: Performed By: #### G FR, CBC, ANEU, ADIFF, MG, BMP, HFP #### [address] [address] LABORATORYOrdered By: SYSTEM SYSTEM on 01-08-2025 Albumin BCP dye [Mass/Vol] 2.6 G/dL Low 3.2 - 4.8 G/dL ADM SS Albumin/Globulin [Mass ratio] 0.8 {ratio} Low 0.9 - 1.6 ratio ADM SS ALP [Catalytic activity/Vol] 111 U/L Normal 38 - 126 U/L ADM SS ALT No additional P-5'-P [Catalytic activity/Vol] 106 U/L High 12 - 55 U/L ADM SS AST [Catalytic activity/Vol] 43 U/L High 8 - 34 U/L ADM SS Basophils (Bld) [#/Vol] 0.0 103/mcL Normal 0.0 - 0.3 10^3/mcL Workflow SS Basophils/100 WBC (Bld) 0.3 % Normal 0.0 - 2.5 % Workflow SS Bili Indirect 0.7 mg/dL Normal 0.1 - 10.0 mg/dL Chemistry S Bilirubin [Mass/Vol] 1.00 mg/dL Normal 0.20 - 1.20 mg/dL ADM SS Comment on above: Interpretive Data: U se of this assay is not recommended for patients undergoing treatment with eltrombopag due to the potential for falsely elevated results. Bilirubin.conjugated [Mass/Vol] 0.3 mg/dL Normal 0.0 - 0.4 mg/dL ADM SS Comment on above: Interpretive Data: U se of this assay is not recommended for patients undergoing treatment with eltrombopag due to the potential for falsely elevated results. Calcium [Mass/Vol] 8.4 mg/dL Low 8.7 - 10. 4 mg/dL ADM SS Chloride [Moles/Vol] 104 mmol/L Normal 98 - 11 0 mEq/L AH ADM SS CO2 [Moles/Vol] 26 mmol/L Normal 22 - 32 mEq/L AH ADM SS Creatinine [Mass/Vol] 1.28 mg/dL Normal 0.60 - 1.40 mg/dL AH ADM SS Comment on above: Interpretive Data: T esting performed on FRM Study Course analyzer using enzymatic creatinine methodology. Electrolyte Balance 11.0 mEq/L Normal 4.0 - 15 .0 mEq/L AH ADM SS Eosinophils (Bld) [#/Vol] 0.1 103/mcL Normal 0.0 - 0.7 10^3/mcL AH Workflow SS Eosinophils/100 WBC (Bld) 1.2 % Normal 0.0 - 6.0 % AH Workflow SS Erythrocyte distribution width (RBC) [Ratio] 15.3 % Normal 11.5 - 15.5 % AH Workflow SS Estimated Glomerular Filtration Rate 57 ml/min/1.73sqm Invalid Interpretation Code ADM SS Comment on above: Interpretive Data: Stages of Chronic Kidney Disease (CKD) Stage Description eGFR(ml/min/1.73 sq.m.) CKD 1 Normal kidney function or >=90 normal kindney function with possible kidney damage (ex. Proteinuria) CKD 2 Kidney damage with mild loss 60-89 of kidney function CKD 3a Mild to moderate loss of kidney 45-59 function CKD 3b Moderate to severe loss of 30-44 of kindey function CKD 4 Severe loss of kidney function 15-29 CKD 5 Kidney failure <15 Note: (go live 2024) the eGFR calculation was updated to the 2020 CKD-EPI creatinine equation without a race factor to calculate the eGFR results. Globulin 3.4 G/dL Normal 2.5 - 4.2 G/dL ADM SS Glucose [Mass/Vol] 110 mg/dL Normal 82 - 115 mg/dL AH ADM SS Hematocrit (Bld) [Volume fraction] 31.9 % Low 40.0 - 52.0 % Workflow SS Hemoglobin (Bld) [Mass/Vol] 10.6 G/dL Low 13.0 - 17.5 G/dL AH Workflow SS Lymphocytes (Bld) [#/Vol] 0.9 103/mcL Normal 0.9 - 4.3 10^3/mcL AH Workflow SS Lymphocytes/100 WBC (Bld) 15.5 % Low 20.0 - 40.0 % AH Workflow SS Magnesium [Mass/Vol] 2.1 mg/dL Normal 1.6 - 2 .4 mg/dL AH ADM SS MCH (RBC) [Entitic mass] 28.9 pg Normal 27.0 - 33.0 pg AH Workflow SS MCHC 33.1 G/dL Normal 32.0 - 36.0 G/dL AH Workflow SS MCV (RBC) [Entitic vol] 87.2 fL Normal 81.0 - 100.0 fL AH Workflow SS Monocytes (Bld) [#/Vol] 0.7 103/mcL Normal 0.1 - 1.4 10^3/mcL AH Workflow SS Monocytes/100 WBC (Bld) 11.6 % Normal 2.0 - 13.0 % AH Workflow SS Neutrophils (Bld) [#/Vol] 4.1 103/mcL Normal 2.3 - 8.1 10^3/mcL AH Workflow SS Neutrophils/100 WBC (Bld) 71.4 % Normal 50.0 - 75.0 % AH Workflow SS Platelet mean volume (Bld) [Entitic vol] 11.1 fL High 6.4 - 10.5 fL AH Workflow SS Platelets (Bld) [#/Vol] 143 103/mcL Low 150 - 450 10^3/mcL AH Workflow SS Potassium [Moles/Vol] 3.2 mmol/L Low 3.5 - 5.0 mEq/L AH ADM SS Protein [Mass/Vol] 6.0 G/dL Normal 5.7 - 8.2 G/dL AH ADM SS RBC (Bld) [#/Vol] 3.65 106/mcL Low 4.50 - 6.00 10^6/mcL AH Workflow SS Sodium [Moles/Vol] 141 mmol/L Normal 136 - 145 mEq/L ADM SS Urea nitrogen [Mass/Vol] 16.0 mg/dL Normal 8.0 - 22.0 mg/dL AH ADM SS Urea nitrogen/Creatinine [Mass ratio] 12.5 ratio Normal 10.0 - 22.0 ratio AH ADM SS WBC (Bld) [#/Vol] 5.7 103/mcL Normal 4.5 - 10.8 10^3/mcL Workflow SS MGon 01-08-2025 Magnesium [Mass/Vol] 2.1 mg/dL Normal 1.6-2.4 [facility] Comment on above: Performed By: #### G FR, CBC, ANEU, ADIFF, MG, BMP, HFP #### [address] [address] .Auto Diffon 01-07-2025 Basophil, Absolute 0.0 10 3/mcL Normal 0.0-0.3 [facility] Comment on above: Performed By: #### G FR, HFP, ANEU, ADIFF, MG, CBC, BMP #### [address] [address] Basophils/100 WBC (Bld) 0.4 % Normal 0.0-2.5 [facility] Comment on above: Performed By: #### G FR, HFP, ANEU, ADIFF, MG, CBC, BMP #### [address] [address] Eosinophil, Absolute 0.0 10 3/mcL Normal 0.0-0.7 [facility] Comment on above: Performed By: #### G FR, HFP, ANEU, ADIFF, MG, CBC, BMP #### [address] [address] Eosinophils/100 WBC (Bld) 0.9 % Normal 0.0-6.0 [facility] Comment on above: Performed By: #### G FR, HFP, ANEU, ADIFF, MG, CBC, BMP #### [address] [address] Lymphocyte, Absolute 0.6 10 3/mcL Low 0.9-4.3 [facility] Comment on above: Performed By: #### G FR, HFP, ANEU, ADIFF, MG, CBC, BMP #### [address] [address] Lymphocytes/100 WBC (Bld) 10.5 % Low 20.0-40.0 [facility] Comment on above: Performed By: #### G FR, HFP, ANEU, ADIFF, MG, CBC, BMP #### [address] [address] Monocyte, Absolute 0.6 10 3/mcL Normal 0.1-1.4 [facility] Comment on above: Performed By: #### G FR, HFP, ANEU, ADIFF, MG, CBC, BMP #### [address] [address] Monocytes/100 WBC (Bld) 10.0 % Normal 2.0-13.0 [facility] Comment on above: Performed By: #### G FR, HFP, ANEU, ADIFF, MG, CBC, BMP #### [address] [address] Neutrophils/100 WBC (Bld) 78.2 % High 50.0-75.0 [facility] Comment on above: Performed By: #### G FR, HFP, ANEU, ADIFF, MG, CBC, BMP #### [address] [address] .GFRon 01-07-2025 Estimated Glomerular Filtration Rate 51 ml/min/1.73sqm Normal [facility] Comment on above: Result Comment: Stages of Chronic Kidney Disease (CKD) Stage Description eGFR(ml/min/1.73 sq.m.) CKD 1 Normal kidney function or >=90 normal kindney function with possible kidney damage (ex. Proteinuria) CKD 2 Kidney damage with mild loss 60-89 of kidney function CKD 3a Mild to moderate loss of kidney 45-59 function CKD 3b Moderate to severe loss of 30-44 of kindey function CKD 4 Severe loss of kidney function 15-29 CKD 5 Kidney failure <15 Note: (go live 2024) the eGFR calculation was updated to the 2020 CKD-EPI creatinine equation without a race factor to calculate the eGFR results. Performed By: #### G FR, CBC, ANEU, ADIFF, MG, BMP, HFP #### [address] [address] .NEUABSon 01-07-2025 Neutrophil, Absolute 4.5 10 3/mcL Normal 2.3-8.1 [facility] Comment on above: Performed By: #### G FR, CBC, ANEU, ADIFF, MG, BMP, HFP #### [address] [address] BMPon 01-07-2025 BUN/Creatinine Ratio 12.9 ratio Normal 10.0-22.0 [facility] Comment on above: Performed By: #### G FR, CBC, ANEU, ADIFF, MG, BMP, HFP #### [address] [address] Calcium [Mass/Vol] 9.1 mg/dL Normal 8.7-10.4 [facility] Comment on above: Performed By: #### G FR, CBC, ANEU, ADIFF, MG, BMP, HFP #### [address] [address] Chloride [Moles/Vol] 105 mmol/L Normal 98-110 [facility] Comment on above: Performed By: #### G FR, CBC, ANEU, ADIFF, MG, BMP, HFP #### [address] [address] CO2 [Moles/Vol] 25 mmol/L Normal 22-32 [facility] Comment on above: Performed By: #### G FR, CBC, ANEU, ADIFF, MG, BMP, HFP #### [address] [address] Creatinine [Mass/Vol] 1.40 mg/dL Normal 0.60-1.40 [facility] Comment on above: Result Comment: Test ing performed on FRM Study Course analyzer using enzymatic creatinine methodology. Performed By: #### G FR, CBC, ANEU, ADIFF, MG, BMP, HFP #### [address] [address] Electrolyte Balance 7.0 mEq/L Normal 4.0-15.0 [facility] Comment on above: Performed By: #### G FR, CBC, ANEU, ADIFF, MG, BMP, HFP #### [address] [address] Glucose [Mass/Vol] 120 mg/dL High 82-115 [facility] Comment on above: Performed By: #### G FR, CBC, ANEU, ADIFF, MG, BMP, HFP #### [address] [address] Potassium [Moles/Vol] 3.5 mmol/L Normal 3.5-5.0 [facility] Comment on above: Performed By: #### G FR, CBC, ANEU, ADIFF, MG, BMP, HFP #### [place] [address] Sodium [Moles/Vol] 137 mmol/L Normal 136-145 [facility] Comment on above: Performed By: #### G FR, CBC, ANEU, ADIFF, MG, BMP, HFP #### [place] [address] Urea nitrogen [Mass/Vol] 18.0 mg/dL Normal 8.0-22.0 [facility] Comment on above: Performed By: #### G FR, CBC, ANEU, ADIFF, MG, BMP, HFP #### [place] [id number] CBCon 01-07-2025 Erythrocyte distribution width (RBC) [Ratio] 15.8 % High 11.5-15.5 [facility] Comment on above: Performed By: #### G FR, HFP, ANEU, ADIFF, MG, CBC, BMP #### [place] [address] Hematocrit (Bld) [Volume fraction] 31.5 % Low 40.0-52.0 [facility] Comment on above: Performed By: #### G FR, HFP, ANEU, ADIFF, MG, CBC, BMP #### [place] [address] Hgb 10.3 G/dL Low 13.0-17.5 [facility] Comment on above: Performed By: #### G FR, HFP, ANEU, ADIFF, MG, CBC, BMP #### [place] [address] MCH (RBC) [Entitic mass] 29.0 pg Normal 27.0-33.0 [facility] Comment on above: Performed By: #### G FR, HFP, ANEU, ADIFF, MG, CBC, BMP #### [place] [address] MCHC 32.6 G/dL Normal 32.0-36.0 [facility] Comment on above: Performed By: #### G FR, HFP, ANEU, ADIFF, MG, CBC, BMP #### [place] [address] MCV (RBC) [Entitic vol] 89.0 fL Normal 81.0-100.0 [facility] Comment on above: Performed By: #### G FR, HFP, ANEU, ADIFF, MG, CBC, BMP #### [place] [address] Platelet 134 10 3/mcL Low 150-450 [facility] Comment on above: Performed By: #### G FR, HFP, ANEU, ADIFF, MG, CBC, BMP #### [place] [address] Platelet mean volume (Bld) [Entitic vol] 11.3 fL High 6.4-10.5 [facility] Comment on above: Performed By: #### G FR, HFP, ANEU, ADIFF, MG, CBC, BMP #### [place] [address] RBC 3.54 10 6/mcL Low 4.50-6.00 [facility] Comment on above: Performed By: #### G FR, HFP, ANEU, ADIFF, MG, CBC, BMP #### [place] [address] WBC 5.8 10 3/mcL Normal 4.5-10.8 [facility] Comment on above: Performed By: #### G FR, HFP, ANEU, ADIFF, MG, CBC, BMP #### [address] 01-07-2025 Bili Indirect 0.9 mg/dL Normal 0.1-10.0 [facility] Comment on above: Performed By: #### G FR, CBC, ANEU, ADIFF, MG, BMP, [facility] #### [place] [address] Albumin Level 2.7 G/dL Low 3.2-4.8 [facility] Comment on above: Performed By: #### G FR, CBC, ANEU, ADIFF, MG, BMP, [facility] #### [place] [address] Albumin/Globulin [Mass ratio] 0.8 {ratio} Low 0.9-1.6 [facility] Comment on above: Performed By: #### G FR, CBC, ANEU, ADIFF, MG, BMP, HFP #### [place] [address] ALP [Catalytic activity/Vol] 108 U/L Normal 38-126 [facility] Comment on above: Performed By: #### G FR, CBC, ANEU, ADIFF, MG, BMP, HFP #### [place] [address] ALT [Catalytic activity/Vol] 139 U/L High 12-55 [facility] Comment on above: Performed By: #### G FR, CBC, ANEU, ADIFF, MG, BMP, HFP #### [place] [address] AST [Catalytic activity/Vol] 75 U/L High 8-34 [facility] Comment on above: Performed By: #### G FR, CBC, ANEU, ADIFF, MG, BMP, HFP #### [place] [address] Bili Direct 0.5 mg/dL High 0.0-0.4 [facility] Comment on above: Result Comment: Use of this assay is not recommended for patients undergoing treatment with eltrombopag due to the potential for falsely elevated results. Performed By: #### G FR, CBC, ANEU, ADIFF, MG, BMP, HFP #### [place] [address] Bili Total 1.40 mg/dL High 0.20-1.20 [facility] Comment on above: Result Comment: Use of this assay is not recommended for patients undergoing treatment with eltrombopag due to the potential for falsely elevated results. Performed By: #### G FR, CBC, ANEU, ADIFF, MG, BMP, HFP #### [place] [address] Globulin 3.5 G/dL Normal 2.5-4.2 [facility] Comment on above: Performed By: #### G FR, CBC, ANEU, ADIFF, MG, BMP, HFP #### [address] [address] Total Protein 6.2 G/dL Normal 5.7-8.2 [facility] Comment on above: Performed By: #### G FR, CBC, ANEU, ADIFF, MG, BMP, HFP #### [address] [address] MGon 01-07-2025 Magnesium [Mass/Vol] 2.2 mg/dL Normal 1.6-2.4 [facility] Comment on above: Performed By: #### G FR, CBC, ANEU, ADIFF, MG, BMP, HFP #### [address] [address] .Auto Diffon 01-06-2025 Basophil, Absolute 0.0 10 3/mcL Normal 0.0-0.3 [facility] Comment on above: Performed By: #### G FR, CBC, ANEU, ADIFF, MG, BMP, HFP #### [place] [address] Basophils/100 WBC (Bld) 0.0 % Normal 0.0-2.5 [facility] Comment on above: Performed By: #### G FR, CBC, ANEU, ADIFF, MG, BMP, HFP #### [address] [address] Eosinophil, Absolute 0.0 10 3/mcL Normal 0.0-0.7 [facility] Comment on above: Performed By: #### G FR, CBC, ANEU, ADIFF, MG, BMP, HFP #### [address] [address] Eosinophils/100 WBC (Bld) 0.1 % Normal 0.0-6.0 [facility] Comment on above: Performed By: #### G FR, CBC, ANEU, ADIFF, MG, BMP, HFP #### [place] [id number] Lymphocyte, Absolute 0.6 10 3/mcL Low 0.9-4.3 [facility] Comment on above: Performed By: #### G FR, CBC, ANEU, ADIFF, MG, BMP, HFP #### [address] [address] Lymphocytes/100 WBC (Bld) 6.1 % Low 20.0-40.0 [facility] Comment on above: Performed By: #### G FR, CBC, ANEU, ADIFF, MG, BMP, HFP #### [address] [address] Monocyte, Absolute 0.7 10 3/mcL Normal 0.1-1.4 [facility] Comment on above: Performed By: #### G FR, CBC, ANEU, ADIFF, MG, BMP, HFP #### [address] [address] Monocytes/100 WBC (Bld) 6.9 % Normal 2.0-13.0 [facility] Comment on above: Performed By: #### G FR, CBC, ANEU, ADIFF, MG, BMP, HFP #### [address] [address] Neutrophils/100 WBC (Bld) 86.9 % High 50.0-75.0 [facility] Comment on above: Performed By: #### G FR, CBC, ANEU, ADIFF, MG, BMP, HFP #### [address] [address] Basophil, Absolute 0.0 10 3/mcL Normal 0.0-0.3 [facility] Comment on above: Performed By: #### G FR, CBC, ANEU, ADIFF, MG, BMP, HFP #### [address] [address] Basophils/100 WBC (Bld) 0.2 % Normal 0.0-2.5 [facility] Comment on above: Performed By: #### G FR, CBC, ANEU, ADIFF, MG, BMP, HFP #### [address] [address] Eosinophil, Absolute 0.0 10 3/mcL Normal 0.0-0.7 [facility] Comment on above: Performed By: #### G FR, CBC, ANEU, ADIFF, MG, BMP, HFP #### [address] [address] Eosinophils/100 WBC (Bld) 0.1 % Normal 0.0-6.0 [facility] Comment on above: Performed By: #### G FR, CBC, ANEU, ADIFF, MG, BMP, HFP #### [address] [address] Lymphocyte, Absolute 0.8 10 3/mcL Low 0.9-4.3 [facility] Comment on above: Performed By: #### G FR, CBC, ANEU, ADIFF, MG, BMP, HFP #### [address] [address] Lymphocytes/100 WBC (Bld) 9.9 % Low 20.0-40.0 [facility] Comment on above: Performed By: #### G FR, CBC, ANEU, ADIFF, MG, BMP, HFP #### [address] [address] Monocyte, Absolute 0.8 10 3/mcL Normal 0.1-1.4 [facility] Comment on above: Performed By: #### G FR, CBC, ANEU, ADIFF, MG, BMP, HFP #### [address] [address] Monocytes/100 WBC (Bld) 9.3 % Normal 2.0-13.0 [facility] Comment on above: Performed By: #### G FR, CBC, ANEU, ADIFF, MG, BMP, HFP #### [address] [address] Neutrophils/100 WBC (Bld) 80.5 % High 50.0-75.0 [facility] Comment on above: Performed By: #### G FR, CBC, ANEU, ADIFF, MG, BMP, HFP #### [address] [address] .GFRon 01-06-2025 Estimated Glomerular Filtration Rate 43 ml/min/1.73sqm Normal [facility] Comment on above: Result Comment: Stages of Chronic Kidney Disease (CKD) Stage Description eGFR(ml/min/1.73 sq.m.) CKD 1 Normal kidney function or >=90 normal kindney function with possible kidney damage (ex. Proteinuria) CKD 2 Kidney damage with mild loss 60-89 of kidney function CKD 3a Mild to moderate loss of kidney 45-59 function CKD 3b Moderate to severe loss of 30-44 of kindey function CKD 4 Severe loss of kidney function 15-29 CKD 5 Kidney failure <15 Note: (go live 2024) the eGFR calculation was updated to the 2020 CKD-EPI creatinine equation without a race factor to calculate the eGFR results. Performed By: #### G FR, CBC, ANEU, ADIFF, MG, BMP, HFP #### [address] [address] .NEUABSon 01-06-2025 Neutrophil, Absolute 8.4 10 3/mcL High 2.3-8.1 [facility] Comment on above: Performed By: #### G FR, CBC, ANEU, ADIFF, MG, BMP, HFP #### [place] [address] Neutrophil, Absolute 6.7 10 3/mcL Normal 2.3-8.1 [facility] Comment on above: Performed By: #### G FR, CBC, ANEU, ADIFF, MG, BMP, HFP #### [place] [id number] [facility] BUN/Creatinine Ratio 11.2 ratio Normal 10.0-22.0 [facility] Comment on above: Performed By: #### G FR, CBC, ANEU, ADIFF, MG, BMP, HFP #### [place] [address] Calcium [Mass/Vol] 8.9 mg/dL Normal 8.7-10.4 [facility] Comment on above: Performed By: #### G FR, CBC, ANEU, ADIFF, MG, BMP, HFP #### [place] [address] Chloride [Moles/Vol] 104 mmol/L Normal 98-110 [facility] Comment on above: Performed By: #### G FR, CBC, ANEU, ADIFF, MG, BMP, HFP #### [place] [address] CO2 [Moles/Vol] 25 mmol/L Normal 22-32 [facility] Comment on above: Performed By: #### G FR, CBC, ANEU, ADIFF, MG, BMP, HFP #### [address] [address] Creatinine [Mass/Vol] 1.61 mg/dL High 0.60-1.40 [facility] Comment on above: Result Comment: Test ing performed on FRM Study Course analyzer using enzymatic creatinine methodology. Performed By: #### G FR, CBC, ANEU, ADIFF, MG, BMP, HFP #### [address] [address] Electrolyte Balance 13.0 mEq/L Normal 4.0-15.0 [facility] Comment on above: Performed By: #### G FR, CBC, ANEU, ADIFF, MG, BMP, HFP #### [address] [address] Glucose [Mass/Vol] 131 mg/dL High 82-115 [facility] Comment on above: Performed By: #### G FR, CBC, ANEU, ADIFF, MG, BMP, HFP #### [address] [address] Potassium [Moles/Vol] 3.8 mmol/L Normal 3.5-5.0 [facility] Comment on above: Performed By: #### G FR, CBC, ANEU, ADIFF, MG, BMP, HFP #### [address] [address] Sodium [Moles/Vol] 142 mmol/L Normal 136-145 [facility] Comment on above: Performed By: #### G FR, CBC, ANEU, ADIFF, MG, BMP, HFP #### [address] [address] Urea nitrogen [Mass/Vol] 18.0 mg/dL Normal 8.0-22.0 [facility] Comment on above: Performed By: #### G FR, CBC, ANEU, ADIFF, MG, BMP, HFP #### [address] [address] CBCon 01-06-2025 Erythrocyte distribution width (RBC) [Ratio] 15.8 % High 11.5-15.5 [facility] Comment on above: Performed By: #### G FR, CBC, ANEU, ADIFF, MG, BMP, HFP #### [place] [address] Hematocrit (Bld) [Volume fraction] 34.0 % Low 40.0-52.0 [facility] Comment on above: Performed By: #### G FR, CBC, ANEU, ADIFF, MG, BMP, HFP #### [place] [address] Hgb 10.9 G/dL Low 13.0-17.5 [facility] Comment on above: Performed By: #### G FR, CBC, ANEU, ADIFF, MG, BMP, HFP #### [place] [address] MCH (RBC) [Entitic mass] 28.4 pg Normal 27.0-33.0 [facility] Comment on above: Performed By: #### G FR, CBC, ANEU, ADIFF, MG, BMP, HFP #### [place] [address] MCHC 32.0 G/dL Normal 32.0-36.0 [facility] Comment on above: Performed By: #### G FR, CBC, ANEU, ADIFF, MG, BMP, HFP #### [place] [address] MCV (RBC) [Entitic vol] 88.8 fL Normal 81.0-100.0 [facility] Comment on above: Performed By: #### G FR, CBC, ANEU, ADIFF, MG, BMP, HFP #### [place] [address] Platelet 188 10 3/mcL Normal 150-450 [facility] Comment on above: Performed By: #### G FR, CBC, ANEU, ADIFF, MG, BMP, HFP #### [place] [address] Platelet mean volume (Bld) [Entitic vol] 11.4 fL High 6.4-10.5 [facility] Comment on above: Performed By: #### G FR, CBC, ANEU, ADIFF, MG, BMP, HFP #### [place] [address] RBC 3.83 10 6/mcL Low 4.50-6.00 [facility] Comment on above: Performed By: #### G FR, CBC, ANEU, ADIFF, MG, BMP, HFP #### [place] [address] WBC 9.7 10 3/mcL Normal 4.5-10.8 [facility] Comment on above: Performed By: #### G FR, CBC, ANEU, ADIFF, MG, BMP, HFP #### [place] [address] Erythrocyte distribution width (RBC) [Ratio] 16.0 % High 11.5-15.5 [facility] Comment on above: Performed By: #### G FR, CBC, ANEU, ADIFF, MG, BMP, HFP #### [place] [address] Hematocrit (Bld) [Volume fraction] 32.6 % Low 40.0-52.0 [facility] Comment on above: Performed By: #### G FR, CBC, ANEU, ADIFF, MG, BMP, HFP #### [place] [address] Hgb 10.7 G/dL Low 13.0-17.5 [facility] Comment on above: Performed By: #### G FR, CBC, ANEU, ADIFF, MG, BMP, HFP #### [place] [address] MCH (RBC) [Entitic mass] 28.9 pg Normal 27.0-33.0 [facility] Comment on above: Performed By: #### G FR, CBC, ANEU, ADIFF, MG, BMP, HFP #### [place] [address] MCHC 32.7 G/dL Normal 32.0-36.0 [facility] Comment on above: Performed By: #### G FR, CBC, ANEU, ADIFF, MG, BMP, HFP #### [address] [address] MCV (RBC) [Entitic vol] 88.3 fL Normal 81.0-100.0 [facility] Comment on above: Performed By: #### G FR, CBC, ANEU, ADIFF, MG, BMP, HFP #### [place] [address] Platelet 167 10 3/mcL Normal 150-450 [facility] Comment on above: Performed By: #### G FR, CBC, ANEU, ADIFF, MG, BMP, HFP #### [place] [address] Platelet mean volume (Bld) [Entitic vol] 11.1 fL High 6.4-10.5 [facility] Comment on above: Performed By: #### G FR, CBC, ANEU, ADIFF, MG, BMP, HFP #### [place] [address] RBC 3.69 10 6/mcL Low 4.50-6.00 [facility] Comment on above: Performed By: #### G FR, CBC, ANEU, ADIFF, MG, BMP, HFP #### [place] [id number] WBC 8.3 10 3/mcL Normal 4.5-10.8 [facility] Comment on above: Performed By: #### G FR, CBC, ANEU, ADIFF, MG, BMP, HFP #### [place] [address] DIMERon 01-06-2025 D-Dimer 635 ng/mL D-DU High 0-230 [facility] Comment on above: Result Comment: Resu lts reported in D-DU ng/mL. Positive for D-dimer. A positive D-Dimer may occur in the following: DVT, PE, DIC, Trauma, Cancer, Sepsis, , Rheumatoid arthritis, Myocardial infarction and Cirrhosis. The presence of Rheumatoid Factor and HAMA (human mouse antibody) produces an overestimation of test results. The result of the D-Dimer test should be evaluated in the context of all the clinical and laboratory data available. In those instances where the laboratory result does not agree with the clinical evaluation, additional tests should be performed accordingly. If the D-Dimer result is used to exclude DVT or PE, the recommended cutoff value is less than 230 ng/mL. The D-Dimer result should not be used alone to rule in DVT/PE, but should be used in conjunction with a clinical pretest probability (PTP)assessment model to exclude venous thromboembolism (VTE) in patients suspected of deep venous thrombosis (DVT) and pulmonary embolism (PE). Performed By: #### D GLENDY #### [place] [id number] Ron 01-06-2025 Ferritin [Mass/Vol] 488.0 ng/mL High 26.0-388.0 [facility] Comment on above: Performed By: #### G FR, CBC, ANEU, ADIFF, MG, BMP, HFP #### [place] [address] FESon 01-06-2025 Iron [Mass/Vol] 17 ug/dL Low 65-175 [facility] Comment on above: Performed By: #### G FR, CBC, ANEU, ADIFF, MG, BMP, HFP #### [place] [address] Iron Sat 8 % Normal [facility] Comment on above: Performed By: #### G FR, CBC, ANEU, ADIFF, MG, BMP, HFP #### [place] [address] TIBC 226 mcg/dL Low 250-500 [facility] Comment on above: Performed By: #### G FR, CBC, ANEU, ADIFF, MG, BMP, HFP #### [place] [address] HFPon 01-06-2025 Bili Indirect 1.2 mg/dL Normal 0.1-10.0 [facility] Comment on above: Performed By: #### G FR, CBC, ANEU, ADIFF, MG, BMP, HFP #### [place] [address] Albumin Level 2.8 G/dL Low 3.2-4.8 [facility] Comment on above: Performed By: #### G FR, CBC, ANEU, ADIFF, MG, BMP, HFP #### [place] [address] Albumin/Globulin [Mass ratio] 0.8 {ratio} Low 0.9-1.6 [facility] Comment on above: Performed By: #### G FR, CBC, ANEU, ADIFF, MG, BMP, HFP #### [place] [address] ALP [Catalytic activity/Vol] 109 U/L Normal 38-126 [facility] Comment on above: Performed By: #### G FR, CBC, ANEU, ADIFF, MG, BMP, HFP #### [place] [address] ALT [Catalytic activity/Vol] 150 U/L High 12-55 [facility] Comment on above: Performed By: #### G FR, CBC, ANEU, ADIFF, MG, BMP, HFP #### [place] [id number] AST [Catalytic activity/Vol] 146 U/L High 8-34 [facility] Comment on above: Performed By: #### G FR, CBC, ANEU, ADIFF, MG, BMP, HFP #### [place] [address] Bili Direct 0.4 mg/dL Normal 0.0-0.4 [facility] Comment on above: Result Comment: Use of this assay is not recommended for patients undergoing treatment with eltrombopag due to the potential for falsely elevated results. Performed By: #### G FR, CBC, ANEU, ADIFF, MG, BMP, HFP #### [place] [address] Bili Total 1.60 mg/dL High 0.20-1.20 [facility] Comment on above: Result Comment: Use of this assay is not recommended for patients undergoing treatment with eltrombopag due to the potential for falsely elevated results. Performed By: #### G FR, CBC, ANEU, ADIFF, MG, BMP, HFP #### [place] [address] Globulin 3.6 G/dL Normal 2.5-4.2 [facility] Comment on above: Performed By: #### G FR, CBC, ANEU, ADIFF, MG, BMP, HFP #### [facility] [address] [place] [address] Total Protein 6.4 G/dL Normal 5.7-8.2 [facility] Comment on above: Performed By: #### G FR, CBC, ANEU, ADIFF, MG, BMP, HFP #### [facility] [address] [place] [address] LABORATORYOrdered By: SYSTEM SYSTEM on 01-06-2025 D-Dimer 635 ng/mL D-DU High 0 - 230 ng/mL D-DU [facility] SS Comment on above: Result Comment: Resu lts reported in D-DU ng/mL. Positive for D-dimer. A positive D-Dimer may occur in the following: DVT, PE, DIC, Trauma, Cancer, Sepsis, , Rheumatoid arthritis, Myocardial infarction and Cirrhosis. The presence of Rheumatoid Factor and HAMA (human mouse antibody) produces an overestimation of test results. Interpretive Data: T he result of the D-Dimer test should be evaluated in the context of all the clinical and laboratory data available. In those instances where the laboratory result does not agree with the clinical evaluation, additional tests should be performed accordingly. If the D-Dimer result is used to exclude DVT or PE, the recommended cutoff value is less than 230 ng/mL. The D-Dimer result should not be used alone to rule in DVT/PE, but should be used in conjunction with a clinical pretest probability (PTP)assessment model to exclude venous thromboembolism (VTE) in patients suspected of deep venous thrombosis (DVT) and pulmonary embolism (PE). Ferritin [Mass/Vol] 488.0 ng/mL High 26.0 - 388.0 ng/mL ADM SS Iron [Mass/Vol] 17 ug/dL Low 65 - 175 mcg/dL ADM SS Iron binding capacity [Mass/Vol] 226 mcg/dL Low 250 - 500 mcg/dL ADM SS Iron saturation [Mass fraction] 8 % Invalid Interpretation Code ADM SS Natriuretic peptide.B prohormone N-Terminal IA [Mass/Vol] 5578 pg/mL High 0 - 1800 pg/mL ADM SS Troponin I.cardiac DL <= 0.01 ng/mL [Mass/Vol] 2660 ng/L High 0 - 54 ng/L AH ADM SS Comment on above: Interpretive Data: High Sensitive Troponin I Reference Ranges: Female: 0-34 ng/L Male: 0-54 ng/L Testing performed on [employer] IM analyzer using direct chemiluminescent technology. MGon 01-06-2025 Magnesium [Mass/Vol] 2.3 mg/dL Normal 1.6-2.4 [facility] Comment on above: Performed By: #### G FR, CBC, ANEU, ADIFF, MG, BMP, HFP #### [address] [address] PBNPon 01-06-2025 Natriuretic peptide B (Bld) [Mass/Vol] 5578 pg/mL High 0-1800 [facility] Comment on above: Performed By: #### D GLENDY #### [place] [id number] TROPHSon 01-06-2025 High Sensitivity Troponin I 2660 ng/L High 0-54 [facility] Comment on above: Result Comment: High Sensitive Troponin I Reference Ranges: Female: 0-34 ng/L Male: 0-54 ng/L Testing performed on [employer] IM analyzer using direct chemiluminescent technology. Performed By: #### D GLENDY #### [place] [address] XR CHEST 1 VIEWon 01-06-2025 XR CHEST 1 VIEW ORIGINAL EXAMINATION: ONE XRAY VIEW OF THE CHEST 01/06/2025 11:21 am COMPARISON: January 05, 2025 HISTORY: ORDERING SYSTEM PROVIDED HISTORY: Reason for Exam: pul edema FINDINGS: The heart is normal in size and there is no vascular congestion present. Electronic device overlies the central right lung. No definite infiltrate is present. There is bilateral pleural thickening. No definite pleural fluid. Postoperative change cervical spine and left shoulder. IMPRESSION: No acute finding. Interpreted by: Jimmy Fregoso MD Preliminary Report By: Jimmy Fregoso MD Electronically signed By Jimmy Fregoso MD Dictated Date: 01/06/2025 11:25:53 AM Prelim Date: 01/06/2025 11:26:21 AM Sign Date: 01/06/2025 11:26:21 AM Ordering Provider: ARMANDO BAÑUELOS [facility] .Auto Diffon 01-05-2025 Basophil, Absolute 0.0 10 3/mcL Normal 0.0-0.3 [facility] Comment on above: Performed By: #### G FR, CBC, ANEU, ADIFF, MG, BMP, HFP #### [address] [address] Basophils/100 WBC (Bld) 0.3 % Normal 0.0-2.5 [facility] Comment on above: Performed By: #### G FR, CBC, ANEU, ADIFF, MG, BMP, HFP #### [address] [address] Eosinophil, Absolute 0.1 10 3/mcL Normal 0.0-0.7 [facility] Comment on above: Performed By: #### G FR, CBC, ANEU, ADIFF, MG, BMP, HFP #### [address] [address] Eosinophils/100 WBC (Bld) 0.7 % Normal 0.0-6.0 [facility] Comment on above: Performed By: #### G FR, CBC, ANEU, ADIFF, MG, BMP, HFP #### [address] [address] Lymphocyte, Absolute 0.7 10 3/mcL Low 0.9-4.3 [facility] Comment on above: Performed By: #### G FR, CBC, ANEU, ADIFF, MG, BMP, HFP #### [address] [address] Lymphocytes/100 WBC (Bld) 10.1 % Low 20.0-40.0 [facility] Comment on above: Performed By: #### G FR, CBC, ANEU, ADIFF, MG, BMP, HFP #### [address] [address] Monocyte, Absolute 0.8 10 3/mcL Normal 0.1-1.4 [facility] Comment on above: Performed By: #### G FR, CBC, ANEU, ADIFF, MG, BMP, HFP #### [address] [address] Monocytes/100 WBC (Bld) 11.0 % Normal 2.0-13.0 [facility] Comment on above: Performed By: #### G FR, CBC, ANEU, ADIFF, MG, BMP, HFP #### [address] [address] Neutrophils/100 WBC (Bld) 77.9 % High 50.0-75.0 [facility] Comment on above: Performed By: #### G FR, CBC, ANEU, ADIFF, MG, BMP, HFP #### [address] [address] .GFRon 01-05-2025 Estimated Glomerular Filtration Rate 48 ml/min/1.73sqm Normal [facility] Comment on above: Result Comment: Stages of Chronic Kidney Disease (CKD) Stage Description eGFR(ml/min/1.73 sq.m.) CKD 1 Normal kidney function or >=90 normal kindney function with possible kidney damage (ex. Proteinuria) CKD 2 Kidney damage with mild loss 60-89 of kidney function CKD 3a Mild to moderate loss of kidney 45-59 function CKD 3b Moderate to severe loss of 30-44 of kindey function CKD 4 Severe loss of kidney function 15-29 CKD 5 Kidney failure <15 Note: (go live 2024) the eGFR calculation was updated to the 2020 CKD-EPI creatinine equation without a race factor to calculate the eGFR results. Performed By: #### G FR, CBC, ANEU, ADIFF, MG, BMP, HFP #### [address] [address] .NEUABSon 01-05-2025 Neutrophil, Absolute 5.5 10 3/mcL Normal 2.3-8.1 [facility] Comment on above: Performed By: #### G FR, CBC, ANEU, ADIFF, MG, BMP, HFP #### [address] [address] [facility] BUN/Creatinine Ratio 10.2 ratio Normal 10.0-22.0 [facility] Comment on above: Performed By: #### G FR, CBC, ANEU, ADIFF, MG, BMP, HFP #### [address] [address] Calcium [Mass/Vol] 8.8 mg/dL Normal 8.7-10.4 [facility] Comment on above: Performed By: #### G FR, CBC, ANEU, ADIFF, MG, BMP, HFP #### [address] [address] Chloride [Moles/Vol] 107 mmol/L Normal 98-110 [facility] Comment on above: Performed By: #### G FR, CBC, ANEU, ADIFF, MG, BMP, HFP #### [address] [address] CO2 [Moles/Vol] 20 mmol/L Low 22-32 [facility] Comment on above: Performed By: #### G FR, CBC, ANEU, ADIFF, MG, BMP, HFP #### [address] [address] Creatinine [Mass/Vol] 1.47 mg/dL High 0.60-1.40 [facility] Comment on above: Result Comment: Test ing performed on FRM Study Course analyzer using enzymatic creatinine methodology. Performed By: #### G FR, CBC, ANEU, ADIFF, MG, BMP, HFP #### [place] [id number] Electrolyte Balance 14.0 mEq/L Normal 4.0-15.0 [facility] Comment on above: Performed By: #### G FR, CBC, ANEU, ADIFF, MG, BMP, HFP #### [place] [id number] Glucose [Mass/Vol] 175 mg/dL High 82-115 [facility] Comment on above: Performed By: #### G FR, CBC, ANEU, ADIFF, MG, BMP, HFP #### [address] [address] Potassium [Moles/Vol] 4.2 mmol/L Normal 3.5-5.0 [facility] Comment on above: Performed By: #### G FR, CBC, ANEU, ADIFF, MG, BMP, HFP #### [place] [id number] Sodium [Moles/Vol] 141 mmol/L Normal 136-145 [facility] Comment on above: Performed By: #### G FR, CBC, ANEU, ADIFF, MG, BMP, HFP #### [place] [address] Urea nitrogen [Mass/Vol] 15.0 mg/dL Normal 8.0-22.0 [facility] Comment on above: Performed By: #### G FR, CBC, ANEU, ADIFF, MG, BMP, HFP #### [place] [address] CBCon 01-05-2025 Erythrocyte distribution width (RBC) [Ratio] 15.4 % Normal 11.5-15.5 [facility] Comment on above: Performed By: #### G FR, CBC, ANEU, ADIFF, MG, BMP, HFP #### [place] [address] Hematocrit (Bld) [Volume fraction] 32.1 % Low 40.0-52.0 [facility] Comment on above: Performed By: #### G FR, CBC, ANEU, ADIFF, MG, BMP, HFP #### [place] [address] Hgb 10.5 G/dL Low 13.0-17.5 [facility] Comment on above: Performed By: #### G FR, CBC, ANEU, ADIFF, MG, BMP, HFP #### [place] [address] MCH (RBC) [Entitic mass] 29.0 pg Normal 27.0-33.0 [facility] Comment on above: Performed By: #### G FR, CBC, ANEU, ADIFF, MG, BMP, HFP #### [place] [address] MCHC 32.7 G/dL Normal 32.0-36.0 [facility] Comment on above: Performed By: #### G FR, CBC, ANEU, ADIFF, MG, BMP, HFP #### [place] [address] MCV (RBC) [Entitic vol] 88.7 fL Normal 81.0-100.0 [facility] Comment on above: Performed By: #### G FR, CBC, ANEU, ADIFF, MG, BMP, HFP #### [place] [address] Platelet 171 10 3/mcL Normal 150-450 [facility] Comment on above: Performed By: #### G FR, CBC, ANEU, ADIFF, MG, BMP, HFP #### [place] [address] Platelet mean volume (Bld) [Entitic vol] 11.1 fL High 6.4-10.5 [facility] Comment on above: Performed By: #### G FR, CBC, ANEU, ADIFF, MG, BMP, HFP #### [place] [address] RBC 3.62 10 6/mcL Low 4.50-6.00 [facility] Comment on above: Performed By: #### G FR, CBC, ANEU, ADIFF, MG, BMP, HFP #### [place] [address] WBC 7.1 10 3/mcL Normal 4.5-10.8 [facility] Comment on above: Performed By: #### G FR, CBC, ANEU, ADIFF, MG, BMP, HFP #### [place] [address] HFPon 01-05-2025 Bili Indirect 1.2 mg/dL Normal 0.1-10.0 [facility] Comment on above: Performed By: #### G FR, CBC, ANEU, ADIFF, MG, BMP, HFP #### [place] [address] Albumin Level 2.8 G/dL Low 3.2-4.8 [facility] Comment on above: Performed By: #### G FR, CBC, ANEU, ADIFF, MG, BMP, HFP #### [place] [address] Albumin/Globulin [Mass ratio] 0.8 {ratio} Low 0.9-1.6 [facility] Comment on above: Performed By: #### G FR, CBC, ANEU, ADIFF, MG, BMP, HFP #### [address] [address] ALP [Catalytic activity/Vol] 104 U/L Normal 38-126 [facility] Comment on above: Performed By: #### G FR, CBC, ANEU, ADIFF, MG, BMP, HFP #### [place] [address] ALT [Catalytic activity/Vol] 25 U/L Normal 12-55 [facility] Comment on above: Performed By: #### G FR, CBC, ANEU, ADIFF, MG, BMP, HFP #### [place] [address] AST [Catalytic activity/Vol] 41 U/L High 8-34 [facility] Comment on above: Performed By: #### G FR, CBC, ANEU, ADIFF, MG, BMP, HFP #### [place] [address] Bili Direct 0.5 mg/dL High 0.0-0.4 [facility] Comment on above: Result Comment: Use of this assay is not recommended for patients undergoing treatment with eltrombopag due to the potential for falsely elevated results. Performed By: #### G FR, CBC, ANEU, ADIFF, MG, BMP, HFP #### [place] [address] Bili Total 1.70 mg/dL High 0.20-1.20 [facility] Comment on above: Result Comment: Use of this assay is not recommended for patients undergoing treatment with eltrombopag due to the potential for falsely elevated results. Performed By: #### G FR, CBC, ANEU, ADIFF, MG, BMP, HFP #### [place] [id number] Globulin 3.5 G/dL Normal 2.5-4.2 [facility] Comment on above: Performed By: #### G FR, CBC, ANEU, ADIFF, MG, BMP, HFP #### [place] [address] Total Protein 6.3 G/dL Normal 5.7-8.2 [facility] Comment on above: Performed By: #### G FR, CBC, ANEU, ADIFF, MG, BMP, HFP #### [place] [address] LABORATORYOrdered By: SYSTEM SYSTEM on 01-05-2025 Troponin I.cardiac DL <= 0.01 ng/mL [Mass/Vol] 3734 ng/L High 0 - 54 ng/L ADM SS Comment on above: Interpretive Data: High Sensitive Troponin I Reference Ranges: Female: 0-34 ng/L Male: 0-54 ng/L Testing performed on [employer] IM analyzer using direct chemiluminescent technology. MGon 01-05-2025 Magnesium [Mass/Vol] 2.0 mg/dL Normal 1.6-2.4 [facility] Comment on above: Performed By: #### G FR, CBC, ANEU, ADIFF, MG, BMP, HFP #### [place] [address] TROPHSon 01-05-2025 High Sensitivity Troponin I 3734 ng/L High 0-54 [facility] Comment on above: Result Comment: High Sensitive Troponin I Reference Ranges: Female: 0-34 ng/L Male: 0-54 ng/L Testing performed on [employer] IM analyzer using direct chemiluminescent technology. Performed By: #### G FR, CBC, ANEU, ADIFF, MG, BMP, HFP #### [place] [address] XR CHEST 1 VIEWon 01-05-2025 XR CHEST 1 VIEW ORIGINAL EXAMINATION: ONE XRAY VIEW OF THE CHEST 01/05/2025 2:03 pm COMPARISON: 01/03/2025. HISTORY: ORDERING SYSTEM PROVIDED HISTORY: Reason for Exam: shortness of breath FINDINGS: No focal consolidation, pleural effusion, or pneumothorax IMPRESSION: No acute findings, unchanged exam Interpreted by: Sally Thrasher Preliminary Report By: Sally Thrasher Electronically signed By Sally Thrasher Dictated Date: 01/05/2025 2:08:29 PM Prelim Date: 01/05/2025 2:09:48 PM Sign Date: 01/05/2025 2:09:48 PM Ordering Provider: COREY PETERSON [facility] .Auto Diffon 01-04-2025 Basophil, Absolute 0.0 10 3/mcL Normal 0.0-0.3 [facility] Comment on above: Performed By: #### G FR, CBC, ANEU, ADIFF, MG, BMP, HFP #### [address] [address] Basophils/100 WBC (Bld) 0.4 % Normal 0.0-2.5 [facility] Comment on above: Performed By: #### G FR, CBC, ANEU, ADIFF, MG, BMP, HFP #### [address] [address] Eosinophil, Absolute 0.1 10 3/mcL Normal 0.0-0.7 [facility] Comment on above: Performed By: #### G FR, CBC, ANEU, ADIFF, MG, BMP, HFP #### [address] [address] Eosinophils/100 WBC (Bld) 2.5 % Normal 0.0-6.0 [facility] Comment on above: Performed By: #### G FR, CBC, ANEU, ADIFF, MG, BMP, HFP #### [address] [address] Lymphocyte, Absolute 0.8 10 3/mcL Low 0.9-4.3 [facility] Comment on above: Performed By: #### G FR, CBC, ANEU, ADIFF, MG, BMP, HFP #### [address] [address] Lymphocytes/100 WBC (Bld) 15.8 % Low 20.0-40.0 [facility] Comment on above: Performed By: #### G FR, CBC, ANEU, ADIFF, MG, BMP, HFP #### [address] [address] Monocyte, Absolute 0.6 10 3/mcL Normal 0.1-1.4 [facility] Comment on above: Performed By: #### G FR, CBC, ANEU, ADIFF, MG, BMP, HFP #### [address] [address] Monocytes/100 WBC (Bld) 11.6 % Normal 2.0-13.0 [facility] Comment on above: Performed By: #### G FR, CBC, ANEU, ADIFF, MG, BMP, HFP #### [address] [address] Neutrophils/100 WBC (Bld) 69.7 % Normal 50.0-75.0 [facility] Comment on above: Performed By: #### G FR, CBC, ANEU, ADIFF, MG, BMP, HFP #### [address] [address] .GFRon 01-04-2025 Estimated Glomerular Filtration Rate 54 ml/min/1.73sqm Normal [facility] Comment on above: Result Comment: Stages of Chronic Kidney Disease (CKD) Stage Description eGFR(ml/min/1.73 sq.m.) CKD 1 Normal kidney function or >=90 normal kindney function with possible kidney damage (ex. Proteinuria) CKD 2 Kidney damage with mild loss 60-89 of kidney function CKD 3a Mild to moderate loss of kidney 45-59 function CKD 3b Moderate to severe loss of 30-44 of kindey function CKD 4 Severe loss of kidney function 15-29 CKD 5 Kidney failure <15 Note: (go live 2024) the eGFR calculation was updated to the 2020 CKD-EPI creatinine equation without a race factor to calculate the eGFR results. Performed By: #### G FR, CBC, ANEU, ADIFF, MG, BMP, HFP #### [address] [address] .NEUABSon 01-04-2025 Neutrophil, Absolute 3.6 10 3/mcL Normal 2.3-8.1 [facility] Comment on above: Performed By: #### G FR, CBC, ANEU, ADIFF, MG, BMP, HFP #### [place] [address] A1Con 01-04-2025 Glucose [Mass/Vol] 171 mg/dL Normal [facility] Comment on above: Result Comment: Kala mated Average Glucose calculated by equation ((28.7xA1C)-46.7) Estimated average glucose (eAG) is a calculated value from Hemoglobin A1C and is major account representative of the average blood glucose level in the last 2-3 month period. Normal range: less than 114 mg/dL Performed By: #### G FR, CBC, ANEU, ADIFF, MG, BMP, HFP #### [place] [id number] HbA1c (Bld) [Mass fraction] 7.6 % High 4.0-6.0 [facility] Comment on above: Performed By: #### G FR, CBC, ANEU, ADIFF, MG, BMP, HFP #### [place] [address] APTTon 01-04-2025 aPTT Coag (d) [Time] 33.2 s Normal 25.0-35.0 [facility] Comment on above: Result Comment: For Heparin anticoagulation therapy, the recommended therapeutic range is: 54-77 seconds (APTT Correlation with Anti-Xa therapeutic range of 0.3-0.7 units/ml). PLEASE REFERENCE THE PHARMACY PROTOCOL FOR DOSING. Performed By: #### G FR, CBC, ANEU, ADIFF, MG, BMP, HFP #### [place] [address] BMPon 01-04-2025 BUN/Creatinine Ratio 9.7 ratio Low 10.0-22.0 [facility] Comment on above: Performed By: #### G FR, CBC, ANEU, ADIFF, MG, BMP, HFP #### [place] [id number] Calcium [Mass/Vol] 8.4 mg/dL Low 8.7-10.4 [facility] Comment on above: Performed By: #### G FR, CBC, ANEU, ADIFF, MG, BMP, HFP #### [place] [id number] Chloride [Moles/Vol] 109 mmol/L Normal 98-110 [facility] Comment on above: Performed By: #### G FR, CBC, ANEU, ADIFF, MG, BMP, HFP #### [place] [id number] CO2 [Moles/Vol] 22 mmol/L Normal 22-32 [facility] Comment on above: Performed By: #### G FR, CBC, ANEU, ADIFF, MG, BMP, HFP #### [address] [address] Creatinine [Mass/Vol] 1.34 mg/dL Normal 0.60-1.40 [facility] Comment on above: Result Comment: Test ing performed on FRM Study Course analyzer using enzymatic creatinine methodology. Performed By: #### G FR, CBC, ANEU, ADIFF, MG, BMP, HFP #### [place] [id number] Electrolyte Balance 11.0 mEq/L Normal 4.0-15.0 [facility] Comment on above: Performed By: #### G FR, CBC, ANEU, ADIFF, MG, BMP, HFP #### [place] [address] Glucose [Mass/Vol] 131 mg/dL High 82-115 [facility] Comment on above: Performed By: #### G FR, CBC, ANEU, ADIFF, MG, BMP, HFP #### [place] [id number] Potassium [Moles/Vol] 3.7 mmol/L Normal 3.5-5.0 [facility] Comment on above: Performed By: #### G FR, CBC, ANEU, ADIFF, MG, BMP, HFP #### [address] [address] Sodium [Moles/Vol] 142 mmol/L Normal 136-145 [facility] Comment on above: Performed By: #### G FR, CBC, ANEU, ADIFF, MG, BMP, HFP #### [address] [address] Urea nitrogen [Mass/Vol] 13.0 mg/dL Normal 8.0-22.0 [facility] Comment on above: Performed By: #### G FR, CBC, ANEU, ADIFF, MG, BMP, HFP #### [address] [address] CBCon 01-04-2025 Erythrocyte distribution width (RBC) [Ratio] 15.1 % Normal 11.5-15.5 [facility] Comment on above: Performed By: #### G FR, CBC, ANEU, ADIFF, MG, BMP, HFP #### [place] [address] Hematocrit (Bld) [Volume fraction] 30.1 % Low 40.0-52.0 [facility] Comment on above: Performed By: #### G FR, CBC, ANEU, ADIFF, MG, BMP, HFP #### [place] [address] Hgb 9.8 G/dL Low 13.0-17.5 [facility] Comment on above: Performed By: #### G FR, CBC, ANEU, ADIFF, MG, BMP, HFP #### [place] [address] MCH (RBC) [Entitic mass] 28.5 pg Normal 27.0-33.0 [facility] Comment on above: Performed By: #### G FR, CBC, ANEU, ADIFF, MG, BMP, HFP #### [place] [address] MCHC 32.5 G/dL Normal 32.0-36.0 [facility] Comment on above: Performed By: #### G FR, CBC, ANEU, ADIFF, MG, BMP, HFP #### [place] [address] MCV (RBC) [Entitic vol] 87.6 fL Normal 81.0-100.0 [facility] Comment on above: Performed By: #### G FR, CBC, ANEU, ADIFF, MG, BMP, HFP #### [place] [address] Platelet 132 10 3/mcL Low 150-450 [facility] Comment on above: Performed By: #### G FR, CBC, ANEU, ADIFF, MG, BMP, HFP #### [place] [address] Platelet mean volume (Bld) [Entitic vol] 11.1 fL High 6.4-10.5 [facility] Comment on above: Performed By: #### G FR, CBC, ANEU, ADIFF, MG, BMP, HFP #### [facility] [address] [place] [address] RBC 3.43 10 6/mcL Low 4.50-6.00 [facility] Comment on above: Performed By: #### G FR, CBC, ANEU, ADIFF, MG, BMP, HFP #### [facility] [address] [place] [address] WBC 5.2 10 3/mcL Normal 4.5-10.8 [facility] Comment on above: Performed By: #### G FR, CBC, ANEU, ADIFF, MG, BMP, HFP #### [address] [address] DIMERon 01-04-2025 D-Dimer <200 Normal 0-230 [facility] Comment on above: Result Comment: Resu lts reported in D-DU ng/ml. Negative for D-dimer. DVT/PE is highly unlikely. Note: False negative results may be seen in patients on anticoagulant therapy. The result of the D-Dimer test should be evaluated in the context of all the clinical and laboratory data available. In those instances where the laboratory result does not agree with the clinical evaluation, additional tests should be performed accordingly. If the D-Dimer result is used to exclude DVT or PE, the recommended cutoff value is less than 230 ng/mL. The D-Dimer result should not be used alone to rule in DVT/PE, but should be used in conjunction with a clinical pretest probability (PTP)assessment model to exclude venous thromboembolism (VTE) in patients suspected of deep venous thrombosis (DVT) and pulmonary embolism (PE). HFPon 01-04-2025 Bili Indirect 1.0 mg/dL Normal 0.1-10.0 [facility] Comment on above: Performed By: #### G FR, CBC, ANEU, ADIFF, MG, BMP, HFP #### [address] [address] Albumin Level 2.7 G/dL Low 3.2-4.8 [facility] Comment on above: Performed By: #### G FR, CBC, ANEU, ADIFF, MG, BMP, HFP #### [address] [address] Albumin/Globulin [Mass ratio] 0.9 {ratio} Normal 0.9-1.6 [facility] Comment on above: Performed By: #### G FR, CBC, ANEU, ADIFF, MG, BMP, HFP #### [place] [address] ALP [Catalytic activity/Vol] 97 U/L Normal 38-126 [facility] Comment on above: Performed By: #### G FR, CBC, ANEU, ADIFF, MG, BMP, HFP #### [place] [address] ALT [Catalytic activity/Vol] 17 U/L Normal 12-55 [facility] Comment on above: Performed By: #### G FR, CBC, ANEU, ADIFF, MG, BMP, HFP #### [place] [address] AST [Catalytic activity/Vol] 42 U/L High 8-34 [facility] Comment on above: Performed By: #### G FR, CBC, ANEU, ADIFF, MG, BMP, HFP #### [place] [address] Bili Direct 0.4 mg/dL Normal 0.0-0.4 [facility] Comment on above: Result Comment: Use of this assay is not recommended for patients undergoing treatment with eltrombopag due to the potential for falsely elevated results. Performed By: #### G FR, CBC, ANEU, ADIFF, MG, BMP, HFP #### [place] [address] Bili Total 1.40 mg/dL High 0.20-1.20 [facility] Comment on above: Result Comment: Use of this assay is not recommended for patients undergoing treatment with eltrombopag due to the potential for falsely elevated results. Performed By: #### G FR, CBC, ANEU, ADIFF, MG, BMP, HFP #### [place] [address] Globulin 3.1 G/dL Normal 2.5-4.2 [facility] Comment on above: Performed By: #### G FR, CBC, ANEU, ADIFF, MG, BMP, HFP #### [facility] [address] [place] [address] Total Protein 5.8 G/dL Normal 5.7-8.2 [facility] Comment on above: Performed By: #### G FR, CBC, ANEU, ADIFF, MG, BMP, HFP #### [facility] [address] [place] [address] LABORATORYOrdered By: Jose Mariscal on 01-04-2025 D-Dimer ng/mL D-DU Normal 0 - 230 ng/mL D-DU AH Coagulation S Comment on above: Result Comment: Resu lts reported in D-DU ng/ml. Negative for D-dimer. DVT/PE is highly unlikely. Note: False negative results may be seen in patients on anticoagulant therapy. Interpretive Data: T he result of the D-Dimer test should be evaluated in the context of all the clinical and laboratory data available. In those instances where the laboratory result does not agree with the clinical evaluation, additional tests should be performed accordingly. If the D-Dimer result is used to exclude DVT or PE, the recommended cutoff value is less than 230 ng/mL. The D-Dimer result should not be used alone to rule in DVT/PE, but should be used in conjunction with a clinical pretest probability (PTP)assessment model to exclude venous thromboembolism (VTE) in patients suspected of deep venous thrombosis (DVT) and pulmonary embolism (PE). LABORATORYOrdered By: SYSTEM SYSTEM on 01-04-2025 aPTT Coag (Bld) [Time] 33.2 s Normal 25.0 - 35.0 seconds [facility] Comment on above: Interpretive Data: F or Heparin anticoagulation therapy, the recommended therapeutic range is: 54-77 seconds (APTT Correlation with Anti-Xa therapeutic range of 0.3-0.7 units/ml). PLEASE REFERENCE THE PHARMACY PROTOCOL FOR DOSING. Glucose [Mass/Vol] 171 mg/dL Invalid Interpretation Code Auto Chem SS Comment on above: Interpretive Data: E stimated average glucose (eAG) is a calculated value from Hemoglobin A1C and is major account representative of the average blood glucose level in the last 2-3 month period. Normal range: less than 114 mg/dL HbA1c (Bld) [Mass fraction] 7.6 % High 4.0 - 6.0 % Auto Chem SS TSH Qn 2.347 mIU/mL Normal 0.550 - 4.780 mIU/mL ADM SS LABORATORYOrdered By: Devon Marsh on 01-04-2025 Cholesterol [Mass/Vol] 131 mg/dL Normal 50 - 199 mg/dL ADM SS Comment on above: Interpretive Data: C holesterol Reference Interval: Less than 200 Desirable 200-239 Borderline high risk 240 and above High risk Cholesterol in HDL [Mass/Vol] 27 mg/dL Low 40 - 59 mg/dL ADM SS Cholesterol in LDL [Mass/Vol] 60 mg/dL Normal 0 - 129 mg/dL ADM SS Triglyceride [Mass/Vol] 219 mg/dL High 3 - 149 mg/dL [facility] SS LIPIDon 01-04-2025 Cholesterol [Mass/Vol] 131 mg/dL Normal 50-199 [facility] MAIN Comment on above: Result Comment: Chol esterol Reference Interval: Less than 200 Desirable 200-239 Borderline high risk 240 and above High risk Performed By: #### G FR, CBC, ANEU, ADIFF, MG, BMP, HFP #### [address] [address] Cholesterol in HDL [Mass/Vol] 27 mg/dL Low 40-59 [facility] Comment on above: Performed By: #### G FR, CBC, ANEU, ADIFF, MG, BMP, HFP #### [address] [address] Cholesterol in LDL [Mass/Vol] 60 mg/dL Normal 0-129 [facility] Comment on above: Performed By: #### G FR, CBC, ANEU, ADIFF, MG, BMP, HFP #### [address] [address] Triglyceride [Mass/Vol] 219 mg/dL High 3-149 [facility] Comment on above: Performed By: #### G FR, CBC, ANEU, ADIFF, MG, BMP, HFP #### [address] [address] MGon 01-04-2025 Magnesium [Mass/Vol] 2.0 mg/dL Normal 1.6-2.4 [facility] MAIN Comment on above: Performed By: #### G FR, CBC, ANEU, ADIFF, MG, BMP, HFP #### [facility] [address] [place] [address] TROPHSon 01-04-2025 High Sensitivity Troponin I 6698 ng/L High 0-54 [facility] Comment on above: Result Comment: High Sensitive Troponin I Reference Ranges: Female: 0-34 ng/L Male: 0-54 ng/L Testing performed on tenKsolar IM analyzer using direct chemiluminescent technology. Performed By: #### G FR, CBC, ANEU, ADIFF, MG, BMP, HFP #### [facility] [address] [place] [address] TSHRon 01-04-2025 TSH 2.347 mIU/mL Normal 0.550-4.78 0 [facility] Comment on above: Performed By: #### G FR, CBC, ANEU, ADIFF, MG, BMP, HFP #### [place] [id number] [place], [place] [id number] XR CHEST 1 VIEWon 01-04-2025 XR CHEST 1 VIEW ORIGINAL EXAMINATION: ONE XRAY VIEW OF THE CHEST 01/03/2025 10:07 pm COMPARISON: None. HISTORY: ORDERING SYSTEM PROVIDED HISTORY: Reason for Exam: chest pain FINDINGS: Patient is rotated. Cardiomediastinal silhouette is within normal limits. Atherosclerotic aorta. Haziness over the left hemithorax is favored to be secondary to summation artifact. No focal consolidation, large pleural effusion, pulmonary edema or pneumothorax. No acute osseous findings. Multilevel degenerative changes of the spine. ACDF hardware. IMPRESSION: No acute radiographic findings. I have personally reviewed the images of this examination and agree with the resident's findings and interpretation. Interpreted by: Stephy Lacey MD Preliminary Report By: Peter Ace Electronically signed By Stephy Lacey MD Dictated Date: 01/04/2025 5:34:58 AM Prelim Date: 01/04/2025 5:36:48 AM Sign Date: 01/04/2025 5:39:33 AM Ordering Provider: EVA Nickerson [facility] .Auto Diffon 01-03-2025 Basophil, Absolute 0.0 10 3/mcL Normal 0.0-0.3 [facility] Comment on above: Performed By: #### G FR, CBC, ANEU, ADIFF, MG, BMP, HFP #### [address] [address] Basophils/100 WBC (Bld) 0.3 % Normal 0.0-2.5 [facility] Comment on above: Performed By: #### G FR, CBC, ANEU, ADIFF, MG, BMP, HFP #### [address] [address] Eosinophil, Absolute 0.1 10 3/mcL Normal 0.0-0.7 [facility] Comment on above: Performed By: #### G FR, CBC, ANEU, ADIFF, MG, BMP, HFP #### [address] [address] Eosinophils/100 WBC (Bld) 2.0 % Normal 0.0-6.0 [facility] Comment on above: Performed By: #### G FR, CBC, ANEU, ADIFF, MG, BMP, HFP #### [address] [address] Lymphocyte, Absolute 0.8 10 3/mcL Low 0.9-4.3 [facility] Comment on above: Performed By: #### G FR, CBC, ANEU, ADIFF, MG, BMP, HFP #### [address] [address] Lymphocytes/100 WBC (Bld) 14.5 % Low 20.0-40.0 [facility] Comment on above: Performed By: #### G FR, CBC, ANEU, ADIFF, MG, BMP, HFP #### [address] [address] Monocyte, Absolute 0.7 10 3/mcL Normal 0.1-1.4 [facility] Comment on above: Performed By: #### G FR, CBC, ANEU, ADIFF, MG, BMP, HFP #### [address] [address] Monocytes/100 WBC (Bld) 11.4 % Normal 2.0-13.0 [facility] Comment on above: Performed By: #### G FR, CBC, ANEU, ADIFF, MG, BMP, HFP #### [address] [address] Neutrophils/100 WBC (Bld) 71.8 % Normal 50.0-75.0 [facility] Comment on above: Performed By: #### G FR, CBC, ANEU, ADIFF, MG, BMP, HFP #### [address] [address] Basophil, Absolute 0.0 10 3/mcL Normal 0.0-0.3 [facility] Comment on above: Performed By: #### G FR, CBC, ANEU, ADIFF, MG, BMP, HFP #### [address] [address] Basophils/100 WBC (Bld) 0.3 % Normal 0.0-2.5 [facility] Comment on above: Performed By: #### G FR, CBC, ANEU, ADIFF, MG, BMP, HFP #### [address] [address] Eosinophil, Absolute 0.1 10 3/mcL Normal 0.0-0.7 [facility] Comment on above: Performed By: #### G FR, CBC, ANEU, ADIFF, MG, BMP, HFP #### [address] [address] Eosinophils/100 WBC (Bld) 1.9 % Normal 0.0-6.0 [facility] Comment on above: Performed By: #### G FR, CBC, ANEU, ADIFF, MG, BMP, HFP #### [address] [address] Lymphocyte, Absolute 0.9 10 3/mcL Normal 0.9-4.3 [facility] Comment on above: Performed By: #### G FR, CBC, ANEU, ADIFF, MG, BMP, HFP #### [address] [address] Lymphocytes/100 WBC (Bld) 13.9 % Low 20.0-40.0 [facility] Comment on above: Performed By: #### G FR, CBC, ANEU, ADIFF, MG, BMP, HFP #### [address] [address] Monocyte, Absolute 0.8 10 3/mcL Normal 0.1-1.4 [facility] Comment on above: Performed By: #### G FR, CBC, ANEU, ADIFF, MG, BMP, HFP #### [address] [address] Monocytes/100 WBC (Bld) 11.6 % Normal 2.0-13.0 [facility] Comment on above: Performed By: #### G FR, CBC, ANEU, ADIFF, MG, BMP, HFP #### [address] [address] Neutrophils/100 WBC (Bld) 72.3 % Normal 50.0-75.0 [facility] Comment on above: Performed By: #### G FR, CBC, ANEU, ADIFF, MG, BMP, HFP #### [address] [address] .GFRon 01-03-2025 Estimated Glomerular Filtration Rate 51 ml/min/1.73sqm [facility] MAIN Comment on above: Result Comment: Stages of Chronic Kidney Disease (CKD) Stage Description eGFR(ml/min/1.73 sq.m.) CKD 1 Normal kidney function or >=90 normal kindney function with possible kidney damage (ex. Proteinuria) CKD 2 Kidney damage with mild loss 60-89 of kidney function CKD 3a Mild to moderate loss of kidney 45-59 function CKD 3b Moderate to severe loss of 30-44 of kindey function CKD 4 Severe loss of kidney function 15-29 CKD 5 Kidney failure <15 Note: (go live 2024) the eGFR calculation was updated to the 2020 CKD-EPI creatinine equation without a race factor to calculate the eGFR results. Performed By: #### G FR, CBC, ANEU, ADIFF, MG, BMP, HFP #### [address] [address] Estimated Glomerular Filtration Rate 49 ml/min/1.73sqm [facility] MAIN Comment on above: Result Comment: Stages of Chronic Kidney Disease (CKD) Stage Description eGFR(ml/min/1.73 sq.m.) CKD 1 Normal kidney function or >=90 normal kindney function with possible kidney damage (ex. Proteinuria) CKD 2 Kidney damage with mild loss 60-89 of kidney function CKD 3a Mild to moderate loss of kidney 45-59 function CKD 3b Moderate to severe loss of 30-44 of kindey function CKD 4 Severe loss of kidney function 15-29 CKD 5 Kidney failure <15 Note: (go live 2024) the eGFR calculation was updated to the 2020 CKD-EPI creatinine equation without a race factor to calculate the eGFR results. Performed By: #### G FR, CBC, ANEU, ADIFF, MG, BMP, HFP #### [place] [address] .NEUABSon 01-03-2025 Neutrophil, Absolute 4.1 10 3/mcL Normal 2.3-8.1 [facility] Comment on above: Performed By: #### G FR, CBC, ANEU, ADIFF, MG, BMP, HFP #### [place] [address] Neutrophil, Absolute 4.8 10 3/mcL Normal 2.3-8.1 [facility] Comment on above: Performed By: #### G FR, CBC, ANEU, ADIFF, MG, BMP, HFP #### [place] [address] 12 Lead EKGon 01-03-2025 12 Lead EKG Normal [facility] APTTon 01-03-2025 aPTT Coag (Bld) [Time] 30.4 s Normal 25.0-35.0 [facility] Comment on above: Result Comment: For Heparin anticoagulation therapy, the recommended therapeutic range is: 54-77 seconds (APTT Correlation with Anti-Xa therapeutic range of 0.3-0.7 units/ml). PLEASE REFERENCE THE PHARMACY PROTOCOL FOR DOSING. Performed By: #### G FR, CBC, ANEU, ADIFF, MG, BMP, HFP #### [place] [address] BMPon 01-03-2025 BUN/Creatinine Ratio 10.0 ratio Normal 10.0-22.0 [facility] Comment on above: Performed By: #### G FR, CBC, ANEU, ADIFF, MG, BMP, HFP #### [place] [address] Calcium [Mass/Vol] 9.1 mg/dL Normal 8.7-10.4 [facility] Comment on above: Performed By: #### G FR, CBC, ANEU, ADIFF, MG, BMP, HFP #### [address] [address] Chloride [Moles/Vol] 109 mmol/L Normal 98-110 [facility] Comment on above: Performed By: #### G FR, CBC, ANEU, ADIFF, MG, BMP, HFP #### [address] [address] CO2 [Moles/Vol] 23 mmol/L Normal 22-32 [facility] Comment on above: Performed By: #### G FR, CBC, ANEU, ADIFF, MG, BMP, HFP #### [address] [address] Creatinine [Mass/Vol] 1.40 mg/dL Normal 0.60-1.40 [facility] Comment on above: Result Comment: Test ing performed on FRM Study Course analyzer using enzymatic creatinine methodology. Performed By: #### G FR, CBC, ANEU, ADIFF, MG, BMP, HFP #### [address] [address] Electrolyte Balance 9.0 mEq/L Normal 4.0-15.0 [facility] Comment on above: Performed By: #### G FR, CBC, ANEU, ADIFF, MG, BMP, HFP #### [address] [address] Glucose [Mass/Vol] 118 mg/dL High 82-115 [facility] Comment on above: Performed By: #### G FR, CBC, ANEU, ADIFF, MG, BMP, HFP #### [address] [address] Potassium [Moles/Vol] 3.7 mmol/L Normal 3.5-5.0 [facility] Comment on above: Performed By: #### G FR, CBC, ANEU, ADIFF, MG, BMP, HFP #### [address] [address] Sodium [Moles/Vol] 141 mmol/L Normal 136-145 [facility] Comment on above: Performed By: #### G FR, CBC, ANEU, ADIFF, MG, BMP, HFP #### [address] [address] Urea nitrogen [Mass/Vol] 14.0 mg/dL Normal 8.0-22.0 [facility] Comment on above: Performed By: #### G FR, CBC, ANEU, ADIFF, MG, BMP, HFP #### [address] [address] Basic Metabolic Profile (BMP )on 01-03-2025 BUN/CRE 10.4 RATIO Normal 10-20 [facility] Comment on above: Performed By: #### L 100.0100, L500.2500, L501.4021 ####[facility] [id number] [place], [address] Calcium [Mass/Vol] 8.8 mg/dL Normal 7.6-11.0 [facility] Comment on above: Performed By: #### L 100.0100, L500.2500, L501.4021 ####[facility] [id number] [place], [address] Chloride [Moles/Vol] 106 mmol/L Normal 98-108 [facility] Comment on above: Performed By: #### L 100.0100, L500.2500, L501.4021 ####[facility] [id number] [place] [place], [address] CO2 [Moles/Vol] 20.0 mmol/L Low 21.0-32.0 [facility] Comment on above: Performed By: #### L 100.0100, L500.2500, L501.4021 ####[facility] [id number] [place], [address] Creatinine [Mass/Vol] 1.52 mg/dL High 0.70-1.20 [facility] Comment on above: Performed By: #### L 100.0100, L500.2500, L501.4021 ####[facility] [id number] [place], [address] ECRCL 46.43 ml/min Low 50-250 [facility] Comment on above: Performed By: #### L 100.0100, L500.2500, L501.4021 ####[facility] [id number] [place], [address] GAP 12 Normal 5-15 [facility] Comment on above: Performed By: #### L 100.0100, L500.2500, L501.4021 ####[facility] [id number] [place], [address] GFR/1.73 sq M.predicted among non-blacks MDRD (S/P/Bld) [Vol rate/Area] 46 mL/min/{1.73_m2} Low >60 [facility] Comment on above: Result Comment: mL/m in/1.73m2 CKD-EPI Creatinine Equation (2020) Performed By: #### L 100.0100, L500.2500, L501.4021 ####[facility] [id number] [place], [address] Glucose [Mass/Vol] 220 mg/dL High 70-99 [facility] Comment on above: Performed By: #### L 100.0100, L500.2500, L501.4021 ####[facility] [id number] [place], [address] Potassium [Moles/Vol] 4.0 mmol/L Normal 3.3-5.1 [facility] Comment on above: Performed By: #### L 100.0100, L500.2500, L501.4021 ####[facility] [id number] [place], [address] Sodium [Moles/Vol] 138 mmol/L Normal 133-145 [facility] Comment on above: Performed By: #### L 100.0100, L500.2500, L501.4021 ####[facility] [id number] [place], [address] Urea nitrogen [Mass/Vol] 16 mg/dL Normal 4-19 [facility] Comment on above: Performed By: #### L 100.0100, L500.2500, L501.4021 ####[facility] [id number] [place], [address] CBCon 01-03-2025 Erythrocyte distribution width (RBC) [Ratio] 15.2 % Normal 11.5-15.5 [facility] Comment on above: Performed By: #### G FR, CBC, ANEU, ADIFF, MG, BMP, HFP #### [address] [address] Hematocrit (Bld) [Volume fraction] 31.3 % Low 40.0-52.0 [facility] Comment on above: Performed By: #### G FR, CBC, ANEU, ADIFF, MG, BMP, HFP #### [address] [address] Hgb 10.2 G/dL Low 13.0-17.5 [facility] Comment on above: Performed By: #### G FR, CBC, ANEU, ADIFF, MG, BMP, HFP #### [address] [address] MCH (RBC) [Entitic mass] 28.5 pg Normal 27.0-33.0 [facility] Comment on above: Performed By: #### G FR, CBC, ANEU, ADIFF, MG, BMP, HFP #### [address] [address] MCHC 32.6 G/dL Normal 32.0-36.0 [facility] Comment on above: Performed By: #### G FR, CBC, ANEU, ADIFF, MG, BMP, HFP #### [address] [address] MCV (RBC) [Entitic vol] 87.6 fL Normal 81.0-100.0 [facility] Comment on above: Performed By: #### G FR, CBC, ANEU, ADIFF, MG, BMP, HFP #### [place] [address] Platelet 143 10 3/mcL Low 150-450 [facility] Comment on above: Performed By: #### G FR, CBC, ANEU, ADIFF, MG, BMP, HFP #### [place] [address] Platelet mean volume (Bld) [Entitic vol] 10.5 fL Normal 6.4-10.5 [facility] Comment on above: Performed By: #### G FR, CBC, ANEU, ADIFF, MG, BMP, HFP #### [place] [address] RBC 3.57 10 6/mcL Low 4.50-6.00 [facility] Comment on above: Performed By: #### G FR, CBC, ANEU, ADIFF, MG, BMP, HFP #### [place] [address] WBC 5.8 10 3/mcL Normal 4.5-10.8 [facility] Comment on above: Performed By: #### G FR, CBC, ANEU, ADIFF, MG, BMP, HFP #### [place] [address] Erythrocyte distribution width (RBC) [Ratio] 15.9 % High 11.5-15.5 [facility] Comment on above: Performed By: #### G FR, CBC, ANEU, ADIFF, MG, BMP, HFP #### [place] [address] Hematocrit (Bld) [Volume fraction] 33.2 % Low 40.0-52.0 [facility] Comment on above: Performed By: #### G FR, CBC, ANEU, ADIFF, MG, BMP, HFP #### [place] [address] Hgb 10.7 G/dL Low 13.0-17.5 [facility] Comment on above: Performed By: #### G FR, CBC, ANEU, ADIFF, MG, BMP, HFP #### [place] [address] MCH (RBC) [Entitic mass] 28.7 pg Normal 27.0-33.0 [facility] Comment on above: Performed By: #### G FR, CBC, ANEU, ADIFF, MG, BMP, HFP #### [place] [address] MCHC 32.3 G/dL Normal 32.0-36.0 [facility] Comment on above: Performed By: #### G FR, CBC, ANEU, ADIFF, MG, BMP, HFP #### [place] [address] MCV (RBC) [Entitic vol] 89.0 fL Normal 81.0-100.0 [facility] Comment on above: Performed By: #### G FR, CBC, ANEU, ADIFF, MG, BMP, HFP #### [place] [address] Platelet 154 10 3/mcL Normal 150-450 [facility] Comment on above: Performed By: #### G FR, CBC, ANEU, ADIFF, MG, BMP, HFP #### [place] [address] Platelet mean volume (Bld) [Entitic vol] 10.3 fL Normal 6.4-10.5 [facility] Comment on above: Performed By: #### G FR, CBC, ANEU, ADIFF, MG, BMP, HFP #### [place] [address] RBC 3.73 10 6/mcL Low 4.50-6.00 [facility] [facility] Comment on above: Performed By: #### G FR, CBC, ANEU, ADIFF, MG, BMP, HFP #### [place] [id number] WBC 6.7 10 3/mcL Normal 4.5-10.8 [facility] Comment on above: Performed By: #### G FR, CBC, ANEU, ADIFF, MG, BMP, HFP #### [place] [address] CBC W/Diff, Automatedon 09-0 -2025 Absolute Lymph 0.70 X10 3/uL Low 0.83-4.51 [facility] Comment on above: Performed By: #### L 100.0100, L500.2500, L501.4021 ####[facility] [address] [place], [address] Absolute Neut 5.8 X10 3/uL Normal 2.0-7.7 [facility] Comment on above: Performed By: #### L 100.0100, L500.2500, L501.4021 ####[facility] [address] [place], [address] Basophils/100 WBC (Bld) 0.1 % Normal 0-1 [facility] Comment on above: Performed By: #### L 100.0100, L500.2500, L501.4021 ####[facility] [address] [place], [address] Eosinophils/100 WBC (Bld) 1.1 % Normal 0-5 [facility] Comment on above: Performed By: #### L 100.0100, L500.2500, L501.4021 ####[facility] [address] [place], [address] Erythrocyte distribution width (RBC) [Ratio] 15.7 % High 11.6-14.6 [facility] Comment on above: Performed By: #### L 100.0100, L500.2500, L501.4021 ####[facility] [address] [place], [address] Hematocrit (Bld) [Volume fraction] 33.4 % Low 40-54 [facility] Comment on above: Performed By: #### L 100.0100, L500.2500, L501.4021 ####[facility] [address] [place], [address] Hemoglobin (Bld) [Mass/Vol] 10.5 g/dL Low 13.0-16.5 [facility] Comment on above: Performed By: #### L 100.0100, L500.2500, L501.4021 ####[facility] [address] [place], [address] IG% 0.400 Normal 0.0-0.9 [facility] Comment on above: Result Comment: IG% - Immature Granulocytes (promyelocytes, myelocytes andmetamyelocytes) > 1% indicates that a LEFT SHIFT is Present. Performed By: #### L 100.0100, L500.2500, L501.4021 ####[facility] [address] [place], [address] Lymphocytes/100 WBC (Bld) 9.6 % Low 19-41 [facility] Comment on above: Performed By: #### L 100.0100, L500.2500, L501.4021 ####[facility] [address] [place], [address] MCH (RBC) [Entitic mass] 28.9 pg Normal 27.0-32.0 [facility] Comment on above: Performed By: #### L 100.0100, L500.2500, L501.4021 ####[facility] [address] [place], [address] MCHC (RBC) [Mass/Vol] 31.4 g/dL Low 32-36 [facility] Comment on above: Performed By: #### L 100.0100, L500.2500, L501.4021 ####[facility] [address] [place], [address] MCV (RBC) [Entitic vol] 92.0 fL Normal 80-94 [facility] Comment on above: Performed By: #### L 100.0100, L500.2500, L501.4021 ####[facility] [address] [place], [address] Monocytes/100 WBC (Bld) 8.9 % Normal 0-10 [facility] Comment on above: Performed By: #### L 100.0100, L500.2500, L501.4021 ####[facility] [address] [place], [address] Neutrophils/100 WBC (Bld) 79.9 % High 47-70 [facility] Comment on above: Performed By: #### L 100.0100, L500.2500, L501.4021 ####[facility] [address] [place], [address] Nucleated RBC (Bld) [#/Vol] 0 10*3/uL Normal 0-5 [facility] Comment on above: Performed By: #### L 100.0100, L500.2500, L501.4021 ####[facility] [address] [place], [address] Platelet mean volume (Bld) [Entitic vol] 12.7 fL High 6.2-12.0 [facility] Comment on above: Performed By: #### L 100.0100, L500.2500, L501.4021 ####[facility] [address] [place], [address] Platelets (Bld) [#/Vol] 155 10*3/uL Normal 150-450 [facility] Comment on above: Performed By: #### L 100.0100, L500.2500, L501.4021 ####[facility] [address] [place], [address] RBC (Bld) [#/Vol] 3.63 10*6/uL Low 4.6-6.2 [facility] Comment on above: Performed By: #### L 100.0100, L500.2500, L501.4021 ####[facility] [address] [place], [address] RDW SD 51.9 fl High 35.1-43.9 [facility] Comment on above: Performed By: #### L 100.0100, L500.2500, L501.4021 ####[facility] [address] [place], [address] WBC (Bld) [#/Vol] 7.3 10*3/uL Normal 4.4-11.0 [facility] Comment on above: Performed By: #### L 100.0100, L500.2500, L501.4021 ####[facility] [address] [place], [address] CMPon 01-03-2025 Albumin Level 3.0 G/dL Low 3.2-4.8 [facility] Comment on above: Performed By: #### G FR, CBC, ANEU, ADIFF, MG, BMP, HFP #### [address] [address] Albumin/Globulin [Mass ratio] 0.8 {ratio} Low 0.9-1.6 [facility] Comment on above: Performed By: #### G FR, CBC, ANEU, ADIFF, MG, BMP, HFP #### [address] [address] ALP [Catalytic activity/Vol] 107 U/L Normal 38-126 [facility] Comment on above: Performed By: #### G FR, CBC, ANEU, ADIFF, MG, BMP, HFP #### [address] [address] ALT [Catalytic activity/Vol] 20 U/L Normal 12-55 [facility] Comment on above: Performed By: #### G FR, CBC, ANEU, ADIFF, MG, BMP, HFP #### [address] [address] AST [Catalytic activity/Vol] 51 U/L High 8-34 [facility] Comment on above: Performed By: #### G FR, CBC, ANEU, ADIFF, MG, BMP, HFP #### [address] [address] Bili Total 1.10 mg/dL Normal 0.20-1.20 [facility] Comment on above: Result Comment: Use of this assay is not recommended for patients undergoing treatment with eltrombopag due to the potential for falsely elevated results. Performed By: #### G FR, CBC, ANEU, ADIFF, MG, BMP, HFP #### [address] [address] BUN/Creatinine Ratio 9.0 ratio Low 10.0-22.0 [facility] Comment on above: Performed By: #### G FR, CBC, ANEU, ADIFF, MG, BMP, HFP #### [address] [address] Calcium [Mass/Vol] 9.0 mg/dL Normal 8.7-10.4 [facility] Comment on above: Performed By: #### G FR, CBC, ANEU, ADIFF, MG, BMP, HFP #### [address] [address] Chloride [Moles/Vol] 109 mmol/L Normal 98-110 [facility] Comment on above: Performed By: #### G FR, CBC, ANEU, ADIFF, MG, BMP, HFP #### [address] [address] CO2 [Moles/Vol] 25 mmol/L Normal 22-32 [facility] Comment on above: Performed By: #### G FR, CBC, ANEU, ADIFF, MG, BMP, HFP #### [address] [address] Creatinine [Mass/Vol] 1.44 mg/dL High 0.60-1.40 [facility] Comment on above: Result Comment: Test ing performed on FRM Study Course analyzer using enzymatic creatinine methodology. Performed By: #### G FR, CBC, ANEU, ADIFF, MG, BMP, HFP #### [address] [address] Electrolyte Balance 9.0 mEq/L Normal 4.0-15.0 [facility] Comment on above: Performed By: #### G FR, CBC, ANEU, ADIFF, MG, BMP, HFP #### [address] [address] Globulin 3.6 G/dL Normal 2.5-4.2 [facility] Comment on above: Performed By: #### G FR, CBC, ANEU, ADIFF, MG, BMP, HFP #### [address] [address] Glucose [Mass/Vol] 134 mg/dL High 82-115 [facility] Comment on above: Performed By: #### G FR, CBC, ANEU, ADIFF, MG, BMP, HFP #### [address] [address] Potassium [Moles/Vol] 4.5 mmol/L Normal 3.5-5.0 [facility] Comment on above: Performed By: #### G FR, CBC, ANEU, ADIFF, MG, BMP, HFP #### [address] [address] Sodium [Moles/Vol] 143 mmol/L Normal 136-145 [facility] Comment on above: Performed By: #### G FR, CBC, ANEU, ADIFF, MG, BMP, HFP #### [address] [address] Total Protein 6.6 G/dL Normal 5.7-8.2 [facility] Comment on above: Performed By: #### G FR, CBC, ANEU, ADIFF, MG, BMP, HFP #### [address] [address] Urea nitrogen [Mass/Vol] 13.0 mg/dL Normal 8.0-22.0 [facility] Comment on above: Performed By: #### G FR, CBC, ANEU, ADIFF, MG, BMP, HFP #### [address] [address] Chest 1 View (Portable)on Chest 1 View (Portable) Normal [facility] Emergency Department Summary on 01-03-2025 Emergency Department Summary Normal [facility] L501.4021on 01-03-2025 Trop T High Sen 1948 ng/L Invalid Interpretation Code <=22 [facility] Comment on above: Result Comment: Crit ical Result(s) Called at: by:??LUIS MAYS Resultsread back by same. Performed By: #### L 100.0100, L500.2500, L501.4021 ####[facility] [address] [place], [address] LABORATORYOrdered By: SYSTEM SYSTEM on 01-03-2025 aPTT Coag (Bld) [Time] 30.4 s Normal 25.0 - 35.0 seconds [facility] Comment on above: Interpretive Data: F or Heparin anticoagulation therapy, the recommended therapeutic range is: 54-77 seconds (APTT Correlation with Anti-Xa therapeutic range of 0.3-0.7 units/ml). PLEASE REFERENCE THE PHARMACY PROTOCOL FOR DOSING. Lactate [Moles/Vol] 1.7 mmol/L Normal 0.5 - 2. 2 mmol/L ADM SS Natriuretic peptide.B prohormone N-Terminal IA [Mass/Vol] 4739 pg/mL High 0 - 1800 pg/mL ADM SS PT Coag (PPP) [Time] 14.9 s High 9.0 - 1 4.4 seconds [facility] SS Comment on above: Interpretive Data: E ffective 11/15/07, Protime results may be affected by some antibiotics (i.e. Ciprofloxacin, Azithromycin, Bactrim) which may potentiate the action of oral anticoagulants, with further increases in Protime/INR. PT International Ratio 1.3 ratio Invalid Interpretation Code [facility] Comment on above: Interpretive Data: [employer]ison [employer] (CHEST, 1991, 102:312S-25S) recommended therapeutic range for oral anticoagulant therapy is: LOW RISK: Prophylaxis of venous thrombosis INR: 2.0-3.0 Treatment of pulmonary embolism 2.0-3.0 Prevention of systemic embolism 2.0-3.0 HIGH RISK: Mechanical prosthetic valves 2.5-3.5 Troponin I.cardiac DL <= 0.01 ng/mL [Mass/Vol] 6698 ng/L High 0 - 54 ng/L ADM SS Comment on above: Interpretive Data: High Sensitive Troponin I Reference Ranges: Female: 0-34 ng/L Male: 0-54 ng/L Testing performed on Bitly analyzer using direct chemiluminescent technology. TSH Qn 3.371 mIU/mL Normal 0.550 - 4.780 mIU/mL AH ADM SS Lactate [Moles/Vol] 3.5 mmol/L High 0.5 - 2. 2 mmol/L AH ADM SS Natriuretic peptide.B prohormone N-Terminal IA [Mass/Vol] 4522 pg/mL High 0 - 1800 pg/mL AH ADM SS LACon 01-03-2025 Lactic Acid Lvl 1.7 mmol/L Normal 0.5-2.2 [facility] Comment on above: Order Comment: Order ed secondary to Lactic Acid result greater than or equal to 2.0 Performed By: #### G FR, CBC, ANEU, ADIFF, MG, BMP, HFP #### [place] [address] Lactic Acid Lvl 3.5 mmol/L High 0.5-2.2 [facility] Comment on above: Performed By: #### G FR, CBC, ANEU, ADIFF, MG, BMP, HFP #### [address] [address] MGon 01-03-2025 Magnesium [Mass/Vol] 1.9 mg/dL Normal 1.6-2.4 [facility] Comment on above: Performed By: #### G FR, CBC, ANEU, ADIFF, MG, BMP, HFP #### [address] [address] Magnesium [Mass/Vol] 2.0 mg/dL Normal 1.6-2.4 [facility] Comment on above: Performed By: #### G FR, CBC, ANEU, ADIFF, MG, BMP, HFP #### [address] [address] PBNPon 01-03-2025 Natriuretic peptide B (Bld) [Mass/Vol] 4739 pg/mL High 0-1800 [facility] Comment on above: Performed By: #### G FR, CBC, ANEU, ADIFF, MG, BMP, HFP #### [address] [address] Natriuretic peptide B (Bld) [Mass/Vol] 4522 pg/mL High 0-1800 [facility] Comment on above: Performed By: #### G FR, CBC, ANEU, ADIFF, MG, BMP, HFP #### [place] [id number] PROon 01-03-2025 INR Coag (PPP) [Relative time] 1.3 {INR} Normal [facility] Comment on above: Result Comment: [employer] (CHEST, 1991, 102:312S-25S) recommended therapeutic range for oral anticoagulant therapy is: LOW RISK: Prophylaxis of venous thrombosis INR: 2.0-3.0 Treatment of pulmonary embolism 2.0-3.0 Prevention of systemic embolism 2.0-3.0 HIGH RISK: Mechanical prosthetic valves 2.5-3.5 Performed By: #### G FR, CBC, ANEU, ADIFF, MG, BMP, HFP #### [place] [address] PT Coag (PPP) [Time] 14.9 s High 9.0-14.4 [facility] Comment on above: Result Comment: Effe ctive 11/15/07, Protime results may be affected by some antibiotics (i.e. Ciprofloxacin, Azithromycin, Bactrim) which may potentiate the action of oral anticoagulants, with further increases in Protime/INR. Performed By: #### G FR, CBC, ANEU, ADIFF, MG, BMP, HFP #### [place] [address] TROPHSon 01-03-2025 High Sensitivity Troponin I 7058 ng/L High 0-54 [facility] Comment on above: Result Comment: High Sensitive Troponin I Reference Ranges: Female: 0-34 ng/L Male: 0-54 ng/L Testing performed on Bitly analyzer using direct chemiluminescent technology. Performed By: #### G FR, CBC, ANEU, ADIFF, MG, BMP, HFP #### [place] [address] TSHon 01-03-2025 TSH 3.371 mIU/mL Normal 0.550-4.78 0 [facility] Comment on above: Performed By: #### G FR, CBC, ANEU, ADIFF, MG, BMP, HFP #### [address] [place] [address] Troponin T HS 2 HRon 025 Trop T High Sen 1731 ng/L Invalid Interpretation Code <=22 [facility] Comment on above: Result Comment: Crit ical Result(s) Called at: by: NAJMA MAYS??Resultsread back by same. Performed By: #### L 499.0042 ####[facility] [address] [place], [place], [address] Trop T High Sen 1965 ng/L Invalid Interpretation Code <=22 [facility] Comment on above: Result Comment: INCO RRECTLY RECEIVEDCritical Result(s) Called at: by:LUIS MAYS??Results readback by same. Performed By: #### L 499.0042 ####[facility] [address] [place], [place], [address] Troponin T HS 4 HRon 025 Trop T High Sen 1771 ng/L Invalid Interpretation Code <=22 [facility] Comment on above: Result Comment: Crit ical Result(s) Called at: by:??KEVIN SIMENTAL Results readback by same. Performed By: #### L 499.0043 ####[facility] [address] [place], [place], [address] 12 Lead EKGon 01-01-2025 12 Lead EKG Normal [facility] Absolute lymphocyte countOrd ered By: Shaan Hirsch on 01-01-2025 Lymphocytes Auto (Unsp spec) [#/Vol] 0.81 10*3/uL Low 0.83-4.51 [facility] Anion gap in Serum or Plasma Ordered By: Shaan Hirsch on 01-01-2025 Anion gap [Moles/Vol] 11 mmol/L 5-15 [facility] Automated lymphocyte count a s percentage of total leukocytesOrdered By: Shaan Hirsch on 01-01-2025 Lymphocytes/100 WBC Auto (Unsp spec) 12.6 % Low 19-41 [facility] BUN/creatinine ratioOrdered By: Shaan Hirsch on 01-01-2025 Urea nitrogen/Creatinine [Mass ratio] 10.7 mg/mg 10- [facility] Basic Metabolic Profile (BMP )on 01-01-2025 BUN/CRE 10.7 RATIO Normal - [facility] Comment on above: Performed By: #### L 100.0100, L500.2500, L501.4021 ####[facility] [address] [place], [address] Calcium [Mass/Vol] 8.9 mg/dL Normal 7.6-11.0 [facility] Comment on above: Performed By: #### L 100.0100, L500.2500, L501.4021 ####[facility] [address] [place], [address] Chloride [Moles/Vol] 106 mmol/L Normal 98-108 [facility] Comment on above: Performed By: #### L 100.0100, L500.2500, L501.4021 ####[facility] [address] [place], [address] CO2 [Moles/Vol] 22.5 mmol/L Normal 21.0-32.0 [facility] Comment on above: Performed By: #### L 100.0100, L500.2500, L501.4021 ####[facility] [address] [place], [address] Creatinine [Mass/Vol] 1.36 mg/dL High 0.70-1.20 [facility] Comment on above: Performed By: #### L 100.0100, L500.2500, L501.4021 ####[facility] [address] [place], [address] ECRCL 52.44 ml/min Normal 50-250 [facility] Comment on above: Performed By: #### L 100.0100, L500.2500, L501.4021 ####[facility] [address] [place], [address] GAP 11 Normal 5-15 [facility] Comment on above: Performed By: #### L 100.0100, L500.2500, L501.4021 ####[facility] [address] [place], [address] GFR/1.73 sq M.predicted among non-blacks MDRD (S/P/Bld) [Vol rate/Area] 53 mL/min/{1.73_m2} Low >60 [facility] Comment on above: Result Comment: mL/m in/1.73m2 CKD-EPI Creatinine Equation (2020) Performed By: #### L 100.0100, L500.2500, L501.4021 ####[facility] [address] [place], [address] Glucose [Mass/Vol] 142 mg/dL High 70-99 [facility] Comment on above: Performed By: #### L 100.0100, L500.2500, L501.4021 ####[facility] [address] [place], [address] Potassium [Moles/Vol] 4.2 mmol/L Normal 3.3-5.1 [facility] Comment on above: Performed By: #### L 100.0100, L500.2500, L501.4021 ####[facility] [address] [place], [address] Sodium [Moles/Vol] 140 mmol/L Normal 133-145 [facility] Comment on above: Performed By: #### L 100.0100, L500.2500, L501.4021 ####[facility] [address] [place], [address] Urea nitrogen [Mass/Vol] 15 mg/dL Normal 4-19 [facility] Comment on above: Performed By: #### L 100.0100, L500.2500, L501.4021 ####[facility] [address] [place], [address] Basophil percentageOrdered B y: Shaan Hirsch on 01-01-2025 Basophils/100 WBC (Bld) 0.3 % 0-1 [facility] CBC W/Diff, Automatedon --2024 Absolute Lymph 0.81 X10 3/uL Low 0.83-4.51 [facility] Comment on above: Performed By: #### L 100.0100, L500.2500, L501.4021 ####[facility] [address] [place], [address] Absolute Neut 4.8 X10 3/uL Normal 2.0-7.7 [facility] Comment on above: Performed By: #### L 100.0100, L500.2500, L501.4021 ####[facility] [address] [place], [address] Basophils/100 WBC (Bld) 0.3 % Normal 0-1 [facility] Comment on above: Performed By: #### L 100.0100, L500.2500, L501.4021 ####[facility] [address] [place], [address] Eosinophils/100 WBC (Bld) 1.6 % Normal 0-5 [facility] Comment on above: Performed By: #### L 100.0100, L500.2500, L501.4021 ####[facility] [address] [place], [address] Erythrocyte distribution width (RBC) [Ratio] 15.5 % High 11.6-14.6 [facility] Comment on above: Performed By: #### L 100.0100, L500.2500, L501.4021 ####[facility] [address] [place], [address] Hematocrit (Bld) [Volume fraction] 35.9 % Low 40-54 [facility] Comment on above: Performed By: #### L 100.0100, L500.2500, L501.4021 ####[facility] [address] [place], [address] Hemoglobin (Bld) [Mass/Vol] 11.1 g/dL Low 13.0-16.5 [facility] Comment on above: Performed By: #### L 100.0100, L500.2500, L501.4021 ####[facility] [address] [place], [address] IG% 0.300 Normal 0.0-0.9 [facility] Comment on above: Result Comment: IG% - Immature Granulocytes (promyelocytes, myelocytes andmetamyelocytes) > 1% indicates that a LEFT SHIFT is Present. Performed By: #### L 100.0100, L500.2500, L501.4021 ####[facility] [address] [place], [address] Lymphocytes/100 WBC (Bld) 12.6 % Low 19-41 [facility] Comment on above: Performed By: #### L 100.0100, L500.2500, L501.4021 ####[facility] [address] [place], [address] MCH (RBC) [Entitic mass] 28.4 pg Normal 27.0-32.0 [facility] Comment on above: Performed By: #### L 100.0100, L500.2500, L501.4021 ####[facility] [address] [place], [address] MCHC (RBC) [Mass/Vol] 30.9 g/dL Low 32-36 [facility] Comment on above: Performed By: #### L 100.0100, L500.2500, L501.4021 ####[facility] [address] [place], [address] MCV (RBC) [Entitic vol] 91.8 fL Normal 80-94 [facility] Comment on above: Performed By: #### L 100.0100, L500.2500, L501.4021 ####[facility] [address] [place], [address] Monocytes/100 WBC (Bld) 9.7 % Normal 0-10 [facility] Comment on above: Performed By: #### L 100.0100, L500.2500, L501.4021 ####[facility] [address] [place], [address] Neutrophils/100 WBC (Bld) 75.5 % High 47-70 [facility] Comment on above: Performed By: #### L 100.0100, L500.2500, L501.4021 ####[facility] [address] [place], [address] Nucleated RBC (Bld) [#/Vol] 0 10*3/uL Normal 0-5 [facility] Comment on above: Performed By: #### L 100.0100, L500.2500, L501.4021 ####[facility] [address] [place], [address] Platelet mean volume (Bld) [Entitic vol] 12.8 fL High 6.2-12.0 [facility] Comment on above: Performed By: #### L 100.0100, L500.2500, L501.4021 ####[facility] [address] [place], [address] Platelets (Bld) [#/Vol] 142 10*3/uL Low 150-450 [facility] Comment on above: Performed By: #### L 100.0100, L500.2500, L501.4021 ####[facility] [address] [place], [address] RBC (Bld) [#/Vol] 3.91 10*6/uL Low 4.6-6.2 [facility] Comment on above: Performed By: #### L 100.0100, L500.2500, L501.4021 ####[facility] [address] [place], [address] RDW SD 50.7 fl High 35.1-43.9 [facility] Comment on above: Performed By: #### L 100.0100, L500.2500, L501.4021 ####[facility] [address] [place], [address] WBC (Bld) [#/Vol] 6.4 10*3/uL Normal 4.4-11.0 [facility] Comment on above: Performed By: #### L 100.0100, L500.2500, L501.4021 ####[facility] [address] [place], [address] Carbon dioxide, total [Moles /volume] in Central venous bloodOrdered By: Shaan Hirsch on 01-01-2025 CO2 [Moles/Vol] 22.5 mmol/L 21.0-32.0 [facility] Chest 1 View (Portable)on Chest 1 View (Portable) Normal [facility] Chloride assayOrdered By: Charlie Hirsch on 01-01-2025 Chloride [Moles/Vol] 106 mmol/L 98-108 [facility] Emergency Department Summary on 01-01-2025 Emergency Department Summary Normal [facility] Eosinophil percentageOrdered By: Shaan Hirsch on 01-01-2025 Eosinophils/100 WBC (Bld) 1.6 % 0-5 [facility] Erythrocyte distribution wid th ratioOrdered By: Shaan Hirsch on 01-01-2025 Erythrocyte distribution width (RBC) [Ratio] 15.5 % High 11.6-14.6 [facility] Erythrocyte distribution wid th standard deviationOrdered By: Shaan Hirsch on 01-01-2025 Erythrocyte distribution width (RBC) [Ratio] 50.7 fl High 35.1-43.9 [facility] Glomerular filtration rate ( GFR) estimation/1.73 sq m using serum, plasma, or whole bOrdered By: Shaan Hirsch on 01-01-2025 GFR/1.73 sq M.predicted among non-blacks MDRD (S/P/Bld) [Vol rate/Area] 53 mL/min/{1.73_m2} Low >60 [facility] Hematocrit Auto (Bld) [Volum e fraction]Ordered By: Shaan Hirsch on 01-01-2025 Hematocrit (Bld) [Volume fraction] 35.9 % Low 40-54 [facility] Hemoglobin measurementOrdere d By: Shaan Hirsch on 01-01-2025 Hemoglobin (Bld) [Mass/Vol] 11.1 g/dL Low 13.0-16.5 [facility] Immature granulocytes/100 WB C Auto (Bld)Ordered By: Shaan Hirsch on 01-01-2025 Immature granulocytes/100 WBC (Bld) 0.300 % 0.0-0.9 [facility] L501.4021on 01-01-2025 Trop T High Sen 119 ng/L Invalid Interpretation Code <=22 [facility] Comment on above: Result Comment: Crit ical Result(s) Called at 01/01/2025-10:06 by Seymour Tol[place].??Results read back by same. Performed By: #### L 100.0100, L500.2500, L501.4021 ####[facility] [address] [place], [address] MCV (mean corpuscular volume ) determinationOrdered By: Shaan Hirsch on 01-01-2025 MCV (RBC) [Entitic vol] 91.8 fL 80-94 [facility] Mean corpuscular hemoglobin (MCH) determinationOrdered By: Shaan Hirsch on 01-01-2025 MCH (RBC) [Entitic mass] 28.4 pg 27.0-32.0 [facility] Monocyte percentageOrdered B y: Shaan Hirsch on 01-01-2025 Monocytes/100 WBC (Bld) 9.7 % 0-10 [facility] Neutrophil percentageOrdered By: Shaan Hirsch on 01-01-2025 Neutrophils/100 WBC (Bld) 75.5 % High 47-70 [facility] Platelet countOrdered By: Charlie Hirsch on 01-01-2025 Platelets (Bld) [#/Vol] 142 10*3/uL Low 150-450 [facility] Potassium measurement (mass/ volume)Ordered By: Shaan Hirsch on 01-01-2025 Potassium (Unsp spec) [Mass/Vol] 4.2 mmol/L 3.3-5.1 [facility] RBC Auto (Bld) [#/Vol]Ordere d By: Shaan Hirsch on 01-01-2025 RBC (Bld) [#/Vol] 3.91 10*6/uL Low 4.6-6.2 [facility] Serum creatinine measurement (mass/volume)Ordered By: Shaan Hirsch on 01-01-2025 Creatinine [Mass/Vol] 1.36 mg/dL High 0.70-1.20 [facility] Serum glucose measurement (m ass/volume)Ordered By: Shaan Hirsch on 01-01-2025 Glucose [Mass/Vol] 142 mg/dL High 70-99 [facility] Serum or plasma calcium francine urement (mass/volume)Ordered By: Shaan Hirsch on 01-01-2025 Calcium [Mass/Vol] 8.9 mg/dL 7.6-11.0 [facility] Serum or plasma urea nitroge n measurement (mass/volume)Ordered By: Shaan Hirsch on 01-01-2025 Urea nitrogen [Mass/Vol] 15 mg/dL 4-19 [facility] Sodium levelOrdered By: Shaan Hirsch on 01-01-2025 Sodium [Moles/Vol] 140 mmol/L 133-145 [facility] Troponin T HS 2 HRon 025 Trop T High Sen 106 ng/L Invalid Interpretation Code <=22 [facility] Comment on above: Result Comment: Crit ical Result(s) Called at 01/01/2025-11:44 by Seymour Toledo.??Results read back by same. Performed By: #### L 499.0042 ####[facility] [address] [place], [address] Troponin T HS 4 HRon 025 Trop T High Sen Normal <=22 [facility] Comment on above: Result Comment: Canc elled via OM: Order cancelled - Patient discharged Performed By: #### L 499.0043 ####[facility] [address] [place], [address] Troponin T.cardiac [Mass/vol ume] in Serum or Plasma by High sensitivity methodOrdered By: Shaan Hirsch on 01-01-2025 Troponin T.cardiac High sensitivity method [Mass/Vol] 106 ng/L High <22 [facility] Troponin T.cardiac High sensitivity method [Mass/Vol] 119 ng/L High <22 [facility] White blood cell (WBC) count Ordered By: Shaan Hirsch on 01-01-2025 WBC (Bld) [#/Vol] 6.4 10*3/uL 4.4-11.0 [facility] Absolute lymphocyte countOrd ered By: Boyd Rock on 12-28-2024 Lymphocytes Auto (Unsp spec) [#/Vol] 1.02 10*3/uL 0.83-4.51 [facility] Anion gap in Serum or Plasma Ordered By: Boyd Rock on 12-28-2024 Anion gap [Moles/Vol] 10 mmol/L 5-15 [facility] Automated lymphocyte count a s percentage of total leukocytesOrdered By: Boyd Rock on 12-28-2024 Lymphocytes/100 WBC Auto (Unsp spec) 17.4 % Low 19-41 [facility] BUN/creatinine ratioOrdered By: Boyd Rock on 12-28-2024 Urea nitrogen/Creatinine [Mass ratio] 7.5 mg/mg Low 10-20 [facility] Basophil percentageOrdered B y: Boyd Rock on 12-28-2024 Basophils/100 WBC (Bld) 0.3 % 0-1 [facility] Carbon dioxide, total [Moles /volume] in Central venous bloodOrdered By: Boyd Rock on 12-28-2024 CO2 [Moles/Vol] 22.0 mmol/L 21.0-32.0 [facility] Chloride assayOrdered By: Susanna Rock on 12-28-2024 Chloride [Moles/Vol] 109 mmol/L High 98-108 [facility] Eosinophil percentageOrdered By: [facility] on 12-28-2024 Eosinophils/100 WBC (Bld) 2.4 % 0-5 [facility] Erythrocyte distribution wid th ratioOrdered By: [facility] Videsveronica on 12-28-2024 Erythrocyte distribution width (RBC) [Ratio] 14.8 % High 11.6-14.6 [facility] Erythrocyte distribution wid th standard deviationOrdered By: garryoneidabrittni Rock on 12-28-2024 Erythrocyte distribution width (RBC) [Ratio] 48.7 fl High 35.1-43.9 [facility] Glomerular filtration rate ( GFR) estimation/1.73 sq m using serum, plasma, or whole bOrdered By: garryoneidabrittni Garrymiveronica on 12-28-2024 GFR/1.73 sq M.predicted among non-blacks MDRD (S/P/Bld) [Vol rate/Area] 52 mL/min/{1.73_m2} Low >60 [facility] Hematocrit Auto (Bld) [Volum e fraction]Ordered By: [facility] Castañedaveronica on 12-28-2024 Hematocrit (Bld) [Volume fraction] 30.9 % Low 40-54 [facility] Hemoglobin measurementOrdere d By: garryoneidabrittni Garryliane on 12-28-2024 Hemoglobin (Bld) [Mass/Vol] 9.8 g/dL Low 13.0-16.5 [facility] Immature granulocytes/100 WB C Auto (Bld)Ordered By: garryoneidabrittni Castañedamiveronica on 12-28-2024 Immature granulocytes/100 WBC (Bld) 0.300 % 0.0-0.9 [facility] MCV (mean corpuscular volume ) determinationOrdered By: garryoneidabrittni Castañedamiveronica on 12-28-2024 MCV (RBC) [Entitic vol] 91.2 fL 80-94 [facility] Mean corpuscular hemoglobin (MCH) determinationOrdered By: [facility] Cast[facility]edamiveronica 12-28-2024 MCH (RBC) [Entitic mass] 28.9 pg 27.0-32.0 [facility] Monocyte percentageOrdered B y: Boyd Rock on 12-28-2024 Monocytes/100 WBC (Bld) 9.9 % 0-10 [facility] Neutrophil percentageOrdered By: Boyd Rock on 12-28-2024 Neutrophils/100 WBC (Bld) 69.7 % 47-70 [facility] Platelet countOrdered By: Susanna Rock on 12-28-2024 Platelets (Bld) [#/Vol] 112 10*3/uL Low 150-450 [facility] Potassium measurement (mass/ volume)Ordered By: Boyd Garryliane on 12-28-2024 Potassium (Unsp spec) [Mass/Vol] 3.8 mmol/L 3.3-5.1 [facility] RBC Auto (Bld) [#/Vol]Ordere d By: Boyd Rock on 12-28-2024 RBC (Bld) [#/Vol] 3.39 10*6/uL Low 4.6-6.2 [facility] Serum creatinine measurement (mass/volume)Ordered By: oByd Rock on 12-28-2024 Creatinine [Mass/Vol] 1.39 mg/dL High 0.70-1.20 [facility] Serum glucose measurement (m ass/volume)Ordered By: Boyd Garryliane on 12-28-2024 Glucose [Mass/Vol] 131 mg/dL High 70-99 [facility] Serum or plasma calcium francine urement (mass/volume)Ordered By: Boyd Garryliane on 12-28-2024 Calcium [Mass/Vol] 7.9 mg/dL 7.6-11.0 [facility] Serum or plasma urea nitroge n measurement (mass/volume)Ordered By: Boyd Garryliane on 12-28-2024 Urea nitrogen [Mass/Vol] 10 mg/dL 4-19 [facility] Sodium levelOrdered By: Lupe Rock on 12-28-2024 Sodium [Moles/Vol] 141 mmol/L 133-145 [facility] White blood cell (WBC) count Ordered By: Boyd Garryliane on 12-28-2024 WBC (Bld) [#/Vol] 5.9 10*3/uL 4.4-11.0 [facility] Bilirubin Test strip Ql (U)O rdered By: Boyd Rcok on 12-27-2024 Bilirubin Ql (U) Negative Negative [facility] Ketones Test strip Ql (U)Ord ered By: Boyd Rock on 12-27-2024 Ketones Ql (U) Negative Negative [facility] Nitrite Test strip Ql (U)Ord ered By: Boyd Rock on 12-27-2024 Nitrite Ql (U) Negative Negative [facility] Protein Test strip Ql (U)Ord ered By: Boyd Rock on 12-27-2024 Protein Ql (U) Negative Negative [facility] Urine clarityOrdered By: Anastacio Rock on 12-27-2024 Clarity (U) Cloudy Clear [facility] Urine color determinationOrd ered By: Boyd Rock on 12-27-2024 Color (U) Straw Yellow [facility] Urine cultureOrdered By: Anastacio Rock on 12-27-2024 Bacteria identified Cx Nom (U) Staphylococcus aureus Abnormal [facility] Urine glucose detectionOrder ed By: Boyd Rock on 12-27-2024 Glucose Ql (U) 1000 mg/dl High Normal [facility] Urine leukocyte esterase det ection by dipstickOrdered By: Boyd Rock on 12-27-2024 Leukocyte esterase Test strip Ql (U) 100 /ul High Negative [facility] Urine pHOrdered By: Grace Rock on 12-27-2024 pH (U) 6.0 [pH] 5.0 - 8.0 [facility] Urine specific gravity measu rementOrdered By: Boyd Rock on 12-27-2024 Specific gravity (U) [Rel density] 1.010 1.002-1.03 0 [facility] Urine urobilinogen measureme ntOrdered By: Boyd Rock on 12-27-2024 Urobilinogen Ql (U) Normal mg/dl Normal [facility] Absolute lymphocyte countOrd ered By: Eladio Melendez on 12-26-2024 Lymphocytes Auto (Unsp spec) [#/Vol] 0.80 10*3/uL Low 0.83-4.51 [facility] Anion gap in Serum or Plasma Ordered By: Eladio Melendez on 12-26-2024 Anion gap [Moles/Vol] 9 mmol/L 5-15 [facility] Automated lymphocyte count a s percentage of total leukocytesOrdered By: Eladio Melendez on 12-26-2024 Lymphocytes/100 WBC Auto (Unsp spec) 12.6 % Low 19-41 [facility] BUN/creatinine ratioOrdered By: Eladio Melendez on 12-26-2024 Urea nitrogen/Creatinine [Mass ratio] 6.2 mg/mg Low 10-20 [facility] Basic Metabolic Profile (BMP )on 12-26-2024 BUN/CRE 6.2 RATIO Low 10-20 [facility] Comment on above: Performed By: #### L 100.0100, L500.2500, L501.2300, L501.5200 ####[facility] [address] [place], [address] Calcium [Mass/Vol] 8.0 mg/dL Normal 7.6-11.0 [facility] Comment on above: Performed By: #### L 100.0100, L500.2500, L501.2300, L501.5200 ####[facility] [address] [place], [address] Chloride [Moles/Vol] 109 mmol/L High 98-108 [facility] Comment on above: Performed By: #### L 100.0100, L500.2500, L501.2300, L501.5200 ####[facility] [address] [place], [address] CO2 [Moles/Vol] 22.2 mmol/L Normal 21.0-32.0 [facility] Comment on above: Performed By: #### L 100.0100, L500.2500, L501.2300, L501.5200 ####[facility] [address] [place], [address] Creatinine [Mass/Vol] 1.33 mg/dL High 0.70-1.20 [facility] Comment on above: Performed By: #### L 100.0100, L500.2500, L501.2300, L501.5200 ####[facility] [address] [place], [address] ECRCL 52.07 ml/min Normal 50-250 [facility] Comment on above: Performed By: #### L 100.0100, L500.2500, L501.2300, L501.5200 ####[facility] [address] [place], [address] GAP 9 Normal 5-15 [facility] Comment on above: Performed By: #### L 100.0100, L500.2500, L501.2300, L501.5200 ####[facility] [address] [place], [address] GFR/1.73 sq M.predicted among non-blacks MDRD (S/P/Bld) [Vol rate/Area] 54 mL/min/{1.73_m2} Low >60 [facility] Comment on above: Result Comment: mL/m in/1.73m2 CKD-EPI Creatinine Equation (2020) Performed By: #### L 100.0100, L500.2500, L501.2300, L501.5200 ####[facility] [address] [place], [address] Glucose [Mass/Vol] 124 mg/dL High 70-99 [facility] Comment on above: Performed By: #### L 100.0100, L500.2500, L501.2300, L501.5200 ####[facility] [address] [place], [address] Potassium [Moles/Vol] 3.7 mmol/L Normal 3.3-5.1 [facility] Comment on above: Performed By: #### L 100.0100, L500.2500, L501.2300, L501.5200 ####[facility] [address] [place], [address] Sodium [Moles/Vol] 140 mmol/L Normal 133-145 [facility] Comment on above: Performed By: #### L 100.0100, L500.2500, L501.2300, L501.5200 ####[facility] [address] [place], [address] Urea nitrogen [Mass/Vol] 8 mg/dL Normal 4-19 [facility] Comment on above: Performed By: #### L 100.0100, L500.2500, L501.2300, L501.5200 ####[facility] [address] [place], [address] Basophil percentageOrdered B y: Eladioliliana Melendez on 12-26-2024 Basophils/100 WBC (Bld) 0.3 % 0-1 [facility] Bedside Glucoseon 12-26-2024 FINGERSTICK GLU 131 mg/dL High 74-106 [facility] Comment on above: Result Comment: WILDA GEMENT OF PATIENT CARE PER NURSING PROTOCOL Performed By: #### L 501.080 ####[facility] [address] [place], [address] FINGERSTICK GLU 132 mg/dL High 74-106 [facility] Comment on above: Result Comment: WILDA GEMENT OF PATIENT CARE PER NURSING PROTOCOL Performed By: #### L 501.080 ####[facility] [address] [place], [address] CBC W/Diff, Automatedon 08- PLT EST SLT DEC Normal ADEQ [facility] Comment on above: Performed By: #### L 100.0100, L500.2500, L501.2300, L501.5200 ####[facility] [address] [place], [place], [id number] Carbon dioxide, total [Moles /volume] in Central venous bloodOrdered By: Eladio Melendez on 12-26-2024 CO2 [Moles/Vol] 22.2 mmol/L 21.0-32.0 [facility] Chloride assayOrdered By: Magalie Melendez on 12-26-2024 Chloride [Moles/Vol] 109 mmol/L High 98-108 [facility] Eosinophil percentageOrdered By: Eladio Melendez on 12-26-2024 Eosinophils/100 WBC (Bld) 0.9 % 0-5 [facility] Erythrocyte distribution wid th ratioOrdered By: Eladio Melendez on 12-26-2024 Erythrocyte distribution width (RBC) [Ratio] 14.1 % 11.6-14.6 [facility] Erythrocyte distribution wid th standard deviationOrdered By: Eladio Melendez on 12-26-2024 Erythrocyte distribution width (RBC) [Ratio] 46.0 fl High 35.1-43.9 [facility] Glomerular filtration rate ( GFR) estimation/1.73 sq m using serum, plasma, or whole bOrdered By: Eladio Melendez on 12-26-2024 GFR/1.73 sq M.predicted among non-blacks MDRD (S/P/Bld) [Vol rate/Area] 54 mL/min/{1.73_m2} Low >60 [facility] Glucose measurement at bedsi deOrdered By: Eladio Melendez on 12-26-2024 Glucose [Mass/Vol] 131 mg/dL High 74-106 [facility] Hematocrit Auto (Bld) [Volum e fraction]Ordered By: Eladio Melendez on 12-26-2024 Hematocrit (Bld) [Volume fraction] 32.3 % Low 40-54 [facility] Hemoglobin measurementOrdere d By: Eladio Melendez on 12-26-2024 Hemoglobin (Bld) [Mass/Vol] 10.3 g/dL Low 13.0-16.5 [facility] Immature granulocytes/100 WB C Auto (Bld)Ordered By: Eladio Melendez on 12-26-2024 Immature granulocytes/100 WBC (Bld) 0.500 % 0.0-0.9 [facility] MCV (mean corpuscular volume ) determinationOrdered By: Eladoi Melendez on 12-26-2024 MCV (RBC) [Entitic vol] 90.0 fL 80-94 [facility] Magnesiumon 12-26-2024 Magnesium [Mass/Vol] 1.7 mg/dL Normal 1.5-2.2 [facility] Comment on above: Performed By: #### L 100.0100, L500.2500, L501.2300, L501.5200 ####[facility] [address] [place], [place], [id number] Magnesium measurement (mass/ volume)Ordered By: Eladio Melendez on 12-26-2024 Magnesium (Unsp spec) [Mass/Vol] 1.7 mg/dL 1.5-2.2 [facility] Mean corpuscular hemoglobin (MCH) determinationOrdered By: Eladio Melendez on 12-26-2024 MCH (RBC) [Entitic mass] 28.7 pg 27.0-32.0 [facility] Monocyte percentageOrdered B y: Eladio Melendez on 12-26-2024 Monocytes/100 WBC (Bld) 9.5 % 0-10 [facility] Neutrophil percentageOrdered By: Eladio Melendez on 12-26-2024 Neutrophils/100 WBC (Bld) 76.2 % High 47-70 [facility] Phosphoruson 12-26-2024 Phosphate [Mass/Vol] 2.2 mg/dL Low 2.7-4.5 [facility] Comment on above: Performed By: #### L 100.0100, L500.2500, L501.2300, L501.5200 ####[facility] [address] [place], [place], [id number] Platelet countOrdered By: Magalie Melendez on 12-26-2024 Platelets (Bld) [#/Vol] 92 10*3/uL Low 150-450 [facility] Platelet estimateOrdered By: Eladio Melendez on 12-26-2024 Platelets LM Ql (Bld) SLT DEC ADEQ [facility] Potassium measurement (mass/ volume)Ordered By: Eladio Melendez on 12-26-2024 Potassium (Unsp spec) [Mass/Vol] 3.7 mmol/L 3.3-5.1 [facility] RBC Auto (Bld) [#/Vol]Ordere d By: Eladio Melendez on 12-26-2024 RBC (Bld) [#/Vol] 3.59 10*6/uL Low 4.6-6.2 [facility] Serum creatinine measurement (mass/volume)Ordered By: Eladio Melendez on 12-26-2024 Creatinine [Mass/Vol] 1.33 mg/dL High 0.70-1.20 [facility] Serum glucose measurement (m ass/volume)Ordered By: Eladio Melendez on 12-26-2024 Glucose [Mass/Vol] 124 mg/dL High 70-99 [facility] Serum or plasma calcium francine urement (mass/volume)Ordered By: Eladio Melendez on 12-26-2024 Calcium [Mass/Vol] 8.0 mg/dL 7.6-11.0 [facility] Serum or plasma urea nitroge n measurement (mass/volume)Ordered By: Eladio Melendez on 12-26-2024 Urea nitrogen [Mass/Vol] 8 mg/dL 4-19 [facility] Sodium levelOrdered By: Fei Melendez on 12-26-2024 Sodium [Moles/Vol] 140 mmol/L 133-145 [facility] White blood cell (WBC) count Ordered By: Eladio Melendez on 12-26-2024 WBC (Bld) [#/Vol] 6.3 10*3/uL 4.4-11.0 [facility] 12 Lead EKGon 12-25-2024 12 Lead EKG Normal [facility] Basic Metabolic Profile (BMP )on 12-25-2024 BUN/CRE 6.6 RATIO Low 10-20 [facility] Comment on above: Performed By: #### L 100.0100, L500.2500, L501.2300, L501.5200 ####[facility] [address] [place], [address] Calcium [Mass/Vol] 8.3 mg/dL Normal 7.6-11.0 [facility] Comment on above: Performed By: #### L 100.0100, L500.2500, L501.2300, L501.5200 ####[facility] [address] [place], [address] Chloride [Moles/Vol] 106 mmol/L Normal 98-108 [facility] Comment on above: Performed By: #### L 100.0100, L500.2500, L501.2300, L501.5200 ####[facility] [address] [place], [address] CO2 [Moles/Vol] 19.8 mmol/L Low 21.0-32.0 [facility] Comment on above: Performed By: #### L 100.0100, L500.2500, L501.2300, L501.5200 ####[facility] [address] [place], [address] Creatinine [Mass/Vol] 1.42 mg/dL High 0.70-1.20 [facility] Comment on above: Performed By: #### L 100.0100, L500.2500, L501.2300, L501.5200 ####[facility] [address] [place], [address] ECRCL 49.25 ml/min Low 50-250 [facility] Comment on above: Performed By: #### L 100.0100, L500.2500, L501.2300, L501.5200 ####[facility] [address] [place], [address] GAP 13 Normal 5-15 [facility] Comment on above: Performed By: #### L 100.0100, L500.2500, L501.2300, L501.5200 ####[facility] [address] [place], [address] GFR/1.73 sq M.predicted among non-blacks MDRD (S/P/Bld) [Vol rate/Area] 50 mL/min/{1.73_m2} Low >60 [facility] Comment on above: Result Comment: mL/m in/1.73m2 CKD-EPI Creatinine Equation (2020) Performed By: #### L 100.0100, L500.2500, L501.2300, L501.5200 ####[facility] [address] [place], [address] Glucose [Mass/Vol] 105 mg/dL High 70-99 [facility] Comment on above: Performed By: #### L 100.0100, L500.2500, L501.2300, L501.5200 ####[facility] [address] [place], [address] Potassium [Moles/Vol] 3.4 mmol/L Normal 3.3-5.1 [facility] Comment on above: Performed By: #### L 100.0100, L500.2500, L501.2300, L501.5200 ####[facility] [address] [place], [address] Sodium [Moles/Vol] 139 mmol/L Normal 133-145 [facility] Comment on above: Performed By: #### L 100.0100, L500.2500, L501.2300, L501.5200 ####[facility] [address] [place], [address] Urea nitrogen [Mass/Vol] 9 mg/dL Normal 4-19 [facility] Comment on above: Performed By: #### L 100.0100, L500.2500, L501.2300, L501.5200 ####[facility] [address] [place], [address] Bedside Glucoseon 12-25-2024 FINGERSTICK GLU 140 mg/dL High 74-106 [facility] Comment on above: Result Comment: WILDA GEMENT OF PATIENT CARE PER NURSING PROTOCOL Performed By: #### L 501.080 ####[facility] [address] [place], [address] FINGERSTICK GLU 81 mg/dL Normal 74-106 [facility] Comment on above: Result Comment: WILDA GEMENT OF PATIENT CARE PER NURSING PROTOCOL Performed By: #### L 501.080 ####[facility] [address] [place], [address] FINGERSTICK GLU 115 mg/dL High 74-106 [facility] Comment on above: Result Comment: WILDA GEMENT OF PATIENT CARE PER NURSING PROTOCOL Performed By: #### L 501.080 ####[facility] [address] [place], [address] FINGERSTICK GLU 102 mg/dL Normal 74-106 [facility] Comment on above: Result Comment: WILDA GEMENT OF PATIENT CARE PER NURSING PROTOCOL Performed By: #### L 501.080 ####[facility] [address] [place], [address] CBC W/Diff, Automatedon 12-02 Absolute Lymph 1.00 X10 3/uL Normal 0.83-4.51 [facility] Comment on above: Performed By: #### L 100.0100, L500.2500, L501.2300, L501.5200 ####[facility] [address] [place], [address] Absolute Neut 5.3 X10 3/uL Normal 2.0-7.7 [facility] Comment on above: Performed By: #### L 100.0100, L500.2500, L501.2300, L501.5200 ####[facility] [address] [place], [address] Basophils/100 WBC (Bld) 0.3 % Normal 0-1 [facility] Comment on above: Performed By: #### L 100.0100, L500.2500, L501.2300, L501.5200 ####[facility] [address] [place], [address] Eosinophils/100 WBC (Bld) 1.1 % Normal 0-5 [facility] Comment on above: Performed By: #### L 100.0100, L500.2500, L501.2300, L501.5200 ####[facility] [address] [place], [address] Erythrocyte distribution width (RBC) [Ratio] 14.2 % Normal 11.6-14.6 [facility] Comment on above: Performed By: #### L 100.0100, L500.2500, L501.2300, L501.5200 ####[facility] [address] [place], [address] Hematocrit (Bld) [Volume fraction] 30.7 % Low 40-54 [facility] Comment on above: Performed By: #### L 100.0100, L500.2500, L501.2300, L501.5200 ####[facility] [address] [place], [address] Hemoglobin (Bld) [Mass/Vol] 10.2 g/dL Low 13.0-16.5 [facility] Comment on above: Performed By: #### L 100.0100, L500.2500, L501.2300, L501.5200 ####[facility] [address] [place], [address] IG% 0.300 Normal 0.0-0.9 [facility] Comment on above: Result Comment: IG% - Immature Granulocytes (promyelocytes, myelocytes andmetamyelocytes) > 1% indicates that a LEFT SHIFT is Present. Performed By: #### L 100.0100, L500.2500, L501.2300, L501.5200 ####[facility] [address] [place], [address] Lymphocytes/100 WBC (Bld) 14.2 % Low 19-41 [facility] Comment on above: Performed By: #### L 100.0100, L500.2500, L501.2300, L501.5200 ####[facility] [address] [place], [address] MCH (RBC) [Entitic mass] 29.0 pg Normal 27.0-32.0 [facility] Comment on above: Performed By: #### L 100.0100, L500.2500, L501.2300, L501.5200 ####[facility] [address] [place], [address] MCHC (RBC) [Mass/Vol] 33.2 g/dL Normal 32-36 [facility] Comment on above: Performed By: #### L 100.0100, L500.2500, L501.2300, L501.5200 ####[facility] [address] [place], [address] MCV (RBC) [Entitic vol] 87.2 fL Normal 80-94 [facility] Comment on above: Performed By: #### L 100.0100, L500.2500, L501.2300, L501.5200 ####[facility] [address] [place], [address] Monocytes/100 WBC (Bld) 8.4 % Normal 0-10 [facility] Comment on above: Performed By: #### L 100.0100, L500.2500, L501.2300, L501.5200 ####[facility] [address] [place], [address] Neutrophils/100 WBC (Bld) 75.7 % High 47-70 [facility] Comment on above: Performed By: #### L 100.0100, L500.2500, L501.2300, L501.5200 ####[facility] [address] [place], [address] Nucleated RBC (Bld) [#/Vol] 0 10*3/uL Normal 0-5 [facility] Comment on above: Performed By: #### L 100.0100, L500.2500, L501.2300, L501.5200 ####[facility] [address] [place], [address] Platelet mean volume (Bld) [Entitic vol] 12.9 fL High 6.2-12.0 [facility] Comment on above: Performed By: #### L 100.0100, L500.2500, L501.2300, L501.5200 ####[facility] [address] [place], [address] Platelets (Bld) [#/Vol] 110 10*3/uL Low 150-450 [facility] Comment on above: Performed By: #### L 100.0100, L500.2500, L501.2300, L501.5200 ####[facility] [address] [place], [address] RBC (Bld) [#/Vol] 3.52 10*6/uL Low 4.6-6.2 [facility] Comment on above: Performed By: #### L 100.0100, L500.2500, L501.2300, L501.5200 ####[facility] [address] [place], [address] RDW SD 44.7 fl High 35.1-43.9 [facility] Comment on above: Performed By: #### L 100.0100, L500.2500, L501.2300, L501.5200 ####[facility] [address] [place], [address] WBC (Bld) [#/Vol] 7.0 10*3/uL Normal 4.4-11.0 [facility] Comment on above: Performed By: #### L 100.0100, L500.2500, L501.2300, L501.5200 ####[facility] [address] [place], [address] Colonoscopy Reporton 025 Colonoscopy Report Normal [facility] EGD Reporton 12-25-2024 EGD Report Normal [facility] Immunohistochemical Stainson 12-25-2024 Immunohistochemical Stains Normal [facility] Comment on above: Performed By: #### P IMHI ####[facility] [address] [place], [address] MR/CON.PCM.GIon 12-25-2024 MR/CON.PCM.GI Normal [facility] MR/OP.PROVATon 12-25-2024 MR/OP.PROVAT Normal [facility] MR/OP.PROVAT Normal [facility] MR/POSTOP.ANEon 12-25-2024 MR/POSTOP.ANE Normal [facility] MR/WKFWIRRR6yb 12-25-2024 MR/POSTOPAN2 Normal [facility] Magnesiumon 12-25-2024 Magnesium [Mass/Vol] 1.5 mg/dL Normal 1.5-2.2 [facility] Comment on above: Performed By: #### L 100.0100, L500.2500, L501.2300, L501.5200 ####[facility] [address] [place], [address] Phosphoruson 12-25-2024 Phosphate [Mass/Vol] 2.0 mg/dL Low 2.7-4.5 [facility] Comment on above: Performed By: #### L 100.0100, L500.2500, L501.2300, L501.5200 ####[facility] [address] [place], [address] Activated partial thrombopla stin time (aPTT) in platelet poor plasma by coagulation aOrdered By: Andrae Kennedy on 12-24-2024 aPTT Coag (PPP) [Time] 27.6 s 24.1-36.2 [facility] Basic Metabolic Profile (BMP )on 12-24-2024 BUN/CRE 9.9 RATIO Low 10-20 [facility] Comment on above: Performed By: #### L 100.0100, L503.6005, L500.2500, L300.3900, L300.4310, M100.7900 ####[facility] [address] [place], [address] Calcium [Mass/Vol] 8.4 mg/dL Normal 7.6-11.0 [facility] Comment on above: Performed By: #### L 100.0100, L503.6005, L500.2500, L300.3900, L300.4310, M100.7900 ####[facility] [address] [place], [address] Chloride [Moles/Vol] 106 mmol/L Normal 98-108 [facility] Comment on above: Performed By: #### L 100.0100, L503.6005, L500.2500, L300.3900, L300.4310, M100.7900 ####[facility] [address] [place], [address] CO2 [Moles/Vol] 18.1 mmol/L Low 21.0-32.0 [facility] Comment on above: Performed By: #### L 100.0100, L503.6005, L500.2500, L300.3900, L300.4310, M100.7900 ####[facility] [address] [place], [place], [id number] Creatinine [Mass/Vol] 1.67 mg/dL High 0.70-1.20 [facility] Comment on above: Performed By: #### L 100.0100, L503.6005, L500.2500, L300.3900, L300.4310, M100.7900 ####[facility] [address] [place], [place], [phone] ECRCL 41.59 ml/min Low 50-250 [facility] Comment on above: Performed By: #### L 100.0100, L503.6005, L500.2500, L300.3900, L300.4310, M100.7900 ####[facility] [address] [place], [place], [phone]([phone] GAP 15 Normal 5-15 [facility] Comment on above: Performed By: #### L 100.0100, L503.6005, L500.2500, L300.3900, L300.4310, M100.7900 ####[facility] [address] [place], [place], [id number] GFR/1.73 sq M.predicted among non-blacks MDRD (S/P/Bld) [Vol rate/Area] 41 mL/min/{1.73_m2} Low >60 [facility] Comment on above: Result Comment: mL/m in/1.73m2 CKD-EPI Creatinine Equation (2020) Performed By: #### L 100.0100, L503.6005, L500.2500, L300.3900, L300.4310, M100.7900 ####[facility] [address] [place], [place], [id number] Glucose [Mass/Vol] 125 mg/dL High 70-99 [facility] Comment on above: Performed By: #### L 100.0100, L503.6005, L500.2500, L300.3900, L300.4310, M100.7900 ####[facility] [address] [place], [address] Potassium [Moles/Vol] 4.3 mmol/L Normal 3.3-5.1 [facility] Comment on above: Performed By: #### L 100.0100, L503.6005, L500.2500, L300.3900, L300.4310, M100.7900 ####[facility] [address] [place], [address] Sodium [Moles/Vol] 139 mmol/L Normal 133-145 [facility] Comment on above: Performed By: #### L 100.0100, L503.6005, L500.2500, L300.3900, L300.4310, M100.7900 ####[facility] [address] [place], [address] Urea nitrogen [Mass/Vol] 17 mg/dL Normal 4-19 [facility] Comment on above: Performed By: #### L 100.0100, L503.6005, L500.2500, L300.3900, L300.4310, M100.7900 ####[facility] [address] [place], [address] Bedside Glucoseon 12-24-2024 FINGERSTICK GLU 107 mg/dL High 74-106 [facility] Comment on above: Result Comment: WILDA GEMENT OF PATIENT CARE PER NURSING PROTOCOL Performed By: #### L 501.080 ####[facility] [address] [place], [address] FINGERSTICK GLU 96 mg/dL Normal 74-106 [facility] Comment on above: Result Comment: WILDA GEMENT OF PATIENT CARE PER NURSING PROTOCOL Performed By: #### L 501.080 ####[facility] [address] [place], [address] FINGERSTICK GLU 152 mg/dL High 74-106 [facility] Comment on above: Result Comment: WILDA GEMENT OF PATIENT CARE PER NURSING PROTOCOL Performed By: #### L 501.080 ####[facility] [address] [place], [address] FINGERSTICK GLU 112 mg/dL High 74-106 [facility] Comment on above: Result Comment: WILDA GEMENT OF PATIENT CARE PER NURSING PROTOCOL Performed By: #### L 501.080 ####[facility] [address] [place], [address] Bilirubin, totalOrdered By: Alka Leo on 12-24-2024 Bilirubin [Mass/Vol] 0.53 mg/dL Normal 0.00-1.30 [facility] Comment on above: Performed By: #### L 500.4050 ####[facility] [address] [place], [address] CBC W/Diff, Automatedon 12-02 Absolute Lymph 1.09 X10 3/uL Normal 0.83-4.51 [facility] Comment on above: Performed By: #### L 100.0100, L503.6005, L500.2500, L300.3900, L300.4310, M100.7900 ####[facility] [address] [place], [address] Absolute Neut 6.9 X10 3/uL Normal 2.0-7.7 [facility] Comment on above: Performed By: #### L 100.0100, L503.6005, L500.2500, L300.3900, L300.4310, M100.7900 ####[facility] [address] [place], [address] IG% 0.300 Normal 0.0-0.9 [facility] Comment on above: Result Comment: IG% - Immature Granulocytes (promyelocytes, myelocytes andmetamyelocytes) > 1% indicates that a LEFT SHIFT is Present. Performed By: #### L 100.0100, L503.6005, L500.2500, L300.3900, L300.4310, M100.7900 ####[facility] [address] [place], [address] Nucleated RBC (Bld) [#/Vol] 0 10*3/uL Normal 0-5 [facility] Comment on above: Performed By: #### L 100.0100, L503.6005, L500.2500, L300.3900, L300.4310, M100.7900 ####[facility] [address] [place], [address] Basophils/100 WBC (Bld) 0.2 % Normal 0-1 [facility] Comment on above: Performed By: #### L 100.0100, L503.6005, L500.2500, L300.3900, L300.4310, M100.7900 ####[facility] [address] [place], [address] Eosinophils/100 WBC (Bld) 0.8 % Normal 0-5 [facility] Comment on above: Performed By: #### L 100.0100, L503.6005, L500.2500, L300.3900, L300.4310, M100.7900 ####[facility] [address] [place], [address] Erythrocyte distribution width (RBC) [Ratio] 14.2 % Normal 11.6-14.6 [facility] Comment on above: Performed By: #### L 100.0100, L503.6005, L500.2500, L300.3900, L300.4310, M100.7900 ####[facility] [address] [place], [address] Hematocrit (Bld) [Volume fraction] 35.7 % Low 40-54 [facility] Comment on above: Performed By: #### L 100.0100, L503.6005, L500.2500, L300.3900, L300.4310, M100.7900 ####[facility] [address] [place], [address] Hemoglobin (Bld) [Mass/Vol] 11.8 g/dL Low 13.0-16.5 [facility] Comment on above: Performed By: #### L 100.0100, L503.6005, L500.2500, L300.3900, L300.4310, M100.7900 ####[facility] [address] [place], [address] Lymphocytes/100 WBC (Bld) 12.2 % Low 19-41 [facility] Comment on above: Performed By: #### L 100.0100, L503.6005, L500.2500, L300.3900, L300.4310, M100.7900 ####[facility] [address] [place], [address] MCH (RBC) [Entitic mass] 29.6 pg Normal 27.0-32.0 [facility] Comment on above: Performed By: #### L 100.0100, L503.6005, L500.2500, L300.3900, L300.4310, M100.7900 ####[facility] [address] [place], [address] MCHC (RBC) [Mass/Vol] 33.1 g/dL Normal 32-36 [facility] Comment on above: Performed By: #### L 100.0100, L503.6005, L500.2500, L300.3900, L300.4310, M100.7900 ####[facility] [address] [place], [address] MCV (RBC) [Entitic vol] 89.5 fL Normal 80-94 [facility] Comment on above: Performed By: #### L 100.0100, L503.6005, L500.2500, L300.3900, L300.4310, M100.7900 ####[facility] [address] [place], [address] Monocytes/100 WBC (Bld) 9.1 % Normal 0-10 [facility] Comment on above: Performed By: #### L 100.0100, L503.6005, L500.2500, L300.3900, L300.4310, M100.7900 ####[facility] [address] [place], [address] Neutrophils/100 WBC (Bld) 77.4 % High 47-70 [facility] Comment on above: Performed By: #### L 100.0100, L503.6005, L500.2500, L300.3900, L300.4310, M100.7900 ####[facility] [address] [place], [address] Platelet mean volume (Bld) [Entitic vol] 12.9 fL High 6.2-12.0 [facility] Comment on above: Performed By: #### L 100.0100, L503.6005, L500.2500, L300.3900, L300.4310, M100.7900 ####[facility] [address] [place], [address] Platelets (Bld) [#/Vol] 139 10*3/uL Low 150-450 [facility] Comment on above: Performed By: #### L 100.0100, L503.6005, L500.2500, L300.3900, L300.4310, M100.7900 ####[facility] [address] [place], [address] RBC (Bld) [#/Vol] 3.99 10*6/uL Low 4.6-6.2 [facility] Comment on above: Performed By: #### L 100.0100, L503.6005, L500.2500, L300.3900, L300.4310, M100.7900 ####[facility] [address] [place], [address] RDW SD 45.5 fl High 35.1-43.9 [facility] Comment on above: Performed By: #### L 100.0100, L503.6005, L500.2500, L300.3900, L300.4310, M100.7900 ####[facility] [address] [place], [address] WBC (Bld) [#/Vol] 8.9 10*3/uL Normal 4.4-11.0 [facility] Comment on above: Performed By: #### L 100.0100, L503.6005, L500.2500, L300.3900, L300.4310, M100.7900 ####[facility] [address] [place], [address] Comprehensive Metabolic Prof [facility] 12-24-2024 ALK PHOS 136 U/L High 40-129 [facility] Comment on above: Performed By: #### L 500.4050 ####[facility] [address] [place], [address] AST [Catalytic activity/Vol] 24 U/L Normal <=37 [facility] Comment on above: Performed By: #### L 500.4050 ####[facility] [address] [place], [address] BUN/CRE 8.9 RATIO Low 10-20 [facility] Comment on above: Performed By: #### L 500.4050 ####[facility] [address] [place], [address] Calcium [Mass/Vol] 8.5 mg/dL Normal 7.6-11.0 [facility] Comment on above: Performed By: #### L 500.4050 ####[facility] [address] [place], [address] Chloride [Moles/Vol] 106 mmol/L Normal 98-108 [facility] Comment on above: Performed By: #### L 500.4050 ####[facility] [address] [place], [address] CO2 [Moles/Vol] 16.6 mmol/L Low 21.0-32.0 [facility] Comment on above: Performed By: #### L 500.4050 ####[facility] [address] [place], [address] Creatinine [Mass/Vol] 1.62 mg/dL High 0.70-1.20 [facility] Comment on above: Performed By: #### L 500.4050 ####[facility] [address] [place], [address] ECRCL 42.41 ml/min Low 50-250 [facility] Comment on above: Performed By: #### L 500.4050 ####[facility] [address] [place], [address] GAP 16 High 5-15 [facility] Comment on above: Performed By: #### L 500.4050 ####[facility] [address] [place], [address] GFR/1.73 sq M.predicted among non-blacks MDRD (S/P/Bld) [Vol rate/Area] 43 mL/min/{1.73_m2} Low >60 [facility] Comment on above: Result Comment: mL/m in/1.73m2 CKD-EPI Creatinine Equation (2020) Performed By: #### L 500.4050 ####[facility] [address] [place], [address] Glucose [Mass/Vol] 127 mg/dL High 70-99 [facility] Comment on above: Performed By: #### L 500.4050 ####[facility] [address] [place], [address] Potassium [Moles/Vol] 4.0 mmol/L Normal 3.3-5.1 [facility] Comment on above: Performed By: #### L 500.4050 ####[facility] [address] [place], [address] Sodium [Moles/Vol] 138 mmol/L Normal 133-145 [facility] Comment on above: Performed By: #### L 500.4050 ####[facility] [address] [place], [address] T PROT 6.6 g/dL Normal 5.9-8.4 [facility] Comment on above: Performed By: #### L 500.4050 ####[facility] [address] [place], [address] Urea nitrogen [Mass/Vol] 14 mg/dL Normal 4-19 [facility] Comment on above: Performed By: #### L 500.4050 ####[facility] [address] [place], [address] Emergency Department Summary on 12-24-2024 Emergency Department Summary Normal [facility] H AND P Exam - Hospitaliston 12-24-2024 H&P Exam - Hospitalist Normal [facility] HH, Hemoglobin AND Hematocri ton 12-24-2024 Hematocrit (Bld) [Volume fraction] 32.2 % Low 40-54 [facility] Comment on above: Performed By: #### L 100.0600 ####[facility] [address] [place], [address] Hemoglobin (Bld) [Mass/Vol] 10.6 g/dL Low 13.0-16.5 [facility] Comment on above: Performed By: #### L 100.0600 ####[facility] [address] [place], [address] Hematocrit (Bld) [Volume fraction] 32.2 % Low 40-54 [facility] Comment on above: Performed By: #### L 100.0600 ####[facility] [address] [place], [address] Hemoglobin (Bld) [Mass/Vol] 10.5 g/dL Low 13.0-16.5 [facility] Comment on above: Performed By: #### L 100.0600 ####[facility] [address] [place], [address] Hematocrit (Bld) [Volume fraction] 38.7 % Low 40-54 [facility] Comment on above: Performed By: #### L 100.0600 ####[facility] [address] [place], [address] Hemoglobin (Bld) [Mass/Vol] 12.3 g/dL Low 13.0-16.5 [facility] Comment on above: Performed By: #### L 100.0600 ####[facility] [address] [place], [address] Hematocrit (Bld) [Volume fraction] 34.5 % Low 40-54 [facility] Comment on above: Performed By: #### L 100.0600 ####[facility] [address] [place], [address] Hemoglobin (Bld) [Mass/Vol] 11.2 g/dL Low 13.0-16.5 [facility] Comment on above: Performed By: #### L 100.0600 ####[facility] [address] [place], [address] Lactic Acidon 12-24-2024 Lactate [Moles/Vol] 1.7 mmol/L Normal 0.0-2.0 [facility] Comment on above: Performed By: #### L 503.6007 ####[facility] [address] [place], [address] Lactate [Moles/Vol] 2.1 mmol/L Invalid Interpretation Code 0.0-2.0 [facility] Comment on above: Order Comment: Y Result Comment: Crit ical Result(s) Called at: 0049 by:??NIKA RAMESH. Results read back by same. Performed By: #### L 100.0100, L503.6005, L500.2500, L300.3900, L300.4310, M100.7900 ####[facility] [address] [place], [place], [address] Magnesiumon 12-24-2024 Magnesium [Mass/Vol] 1.7 mg/dL Normal 1.5-2.2 [facility] Comment on above: Order Comment: Comme nts: may add to ED labs Performed By: #### L 501.5200 ####[facility] [address] [place], [address] No Panel InformationOrdered By: Alka Leo on 12-24-2024 24 U/L <38 [facility] Partial Thromboplast Timeon 12-24-2024 aPTT Coag (Bld) [Time] 27.6 s Normal 24.1-36.2 [facility] Comment on above: Performed By: #### L 100.0100, L503.6005, L500.2500, L300.3900, L300.4310, M100.7900 ####[facility] [address] [place], [address] Prothrombin Time w/INRon INR Coag (PPP) [Relative time] 1.0 {INR} Normal [facility] Comment on above: Performed By: #### L 100.0100, L503.6005, L500.2500, L300.3900, L300.4310, M100.7900 ####[facility] [address] [place], [address] Prothrombin timeOrdered By: Andrae Kennedy on 12-24-2024 PT Coag (PPP) [Time] 13.5 s Normal 11.7-14.9 [facility] Comment on above: Performed By: #### L 100.0100, L503.6005, L500.2500, L300.3900, L300.4310, M100.7900 ####[facility] [address] [place], [address] Serum globulin measurementOr dered By: Alka Leo on 12-24-2024 Globulin (S) [Mass/Vol] 3.1 g/dL Normal 2.2-4.2 [facility] Comment on above: Performed By: #### L 500.4050 ####[facility] [address] [place], [address] Serum or plasma alanine guerrero otransferase (ALT) measurementOrdered By: Alka Leo on 12-24-2024 ALT [Catalytic activity/Vol] 26 U/L Normal <=46 [facility] Comment on above: Performed By: #### L 500.4050 ####[facility] [address] [place], [address] Serum or plasma albumin francine urement (mass/volume)Ordered By: Alka Leo on 12-24-2024 Albumin [Mass/Vol] 3.5 g/dL Normal 3.4-4.8 [facility] Comment on above: Performed By: #### L 500.4050 ####[facility] [address] [place], [address] Serum or plasma albumin/glob ulin mass ratioOrdered By: Alka Leo on 12-24-2024 Albumin/Globulin [Mass ratio] 1.1 {ratio} Normal 0.9-2.4 [facility] Comment on above: Performed By: #### L 500.4050 ####[facility] [address] [place], [address] Serum or plasma alkaline bell sphatase measurementOrdered By: Alka Leo on 12-24-2024 ALP [Catalytic activity/Vol] 136 U/L High 40-129 [facility] Stool Occult Blood iFOBon STOB Normal [facility] Comment on above: Performed By: #### L 100.0100, L503.6005, L500.2500, L300.3900, L300.4310, M100.7900 ####[facility] [address] [place], [address] Stool gastrointestinal hemog lobin detection by immunologic methodOrdered By: Andrae Kennedy on 12-24-2024 Lower GI hemoglobin IA Ql (Stl) Positive Abnormal [facility] Total proteinOrdered By: Sophy Leo on 12-24-2024 Protein [Mass/Vol] 6.6 g/dL 5.9-8.4 [facility] Absolute lymphocyte countOrd ered By: Boyd Rock on 12-21-2024 Lymphocytes Auto (Unsp spec) [#/Vol] 0.76 10*3/uL Low 0.83-4.51 [facility] Anion gap in Serum or Plasma Ordered By: Boyd Rock on 12-21-2024 Anion gap [Moles/Vol] 17 mmol/L High 5-15 [facility] Automated lymphocyte count a s percentage of total leukocytesOrdered By: Boyd Rock on 12-21-2024 Lymphocytes/100 WBC Auto (Unsp spec) 8.7 % Low 19-41 [facility] BUN/creatinine ratioOrdered By: Boyd Rock on 12-21-2024 Urea nitrogen/Creatinine [Mass ratio] 20.6 mg/mg High 10-20 [facility] Basophil percentageOrdered B y: Boyd Rock on 12-21-2024 Basophils/100 WBC (Bld) 0.2 % 0-1 [facility] Carbon dioxide, total [Moles /volume] in Central venous bloodOrdered By: Boyd Rock on 12-21-2024 CO2 [Moles/Vol] 16.7 mmol/L Low 21.0-32.0 [facility] Chloride assayOrdered By: Susanna Rock on 12-21-2024 Chloride [Moles/Vol] 101 mmol/L 98-108 [facility] Eosinophil percentageOrdered By: Boyd Rock on 12-21-2024 Eosinophils/100 WBC (Bld) 0.2 % 0-5 [facility] Erythrocyte distribution wid th ratioOrdered By: Boyd Rock on 12-21-2024 Erythrocyte distribution width (RBC) [Ratio] 13.9 % 11.6-14.6 [facility] Erythrocyte distribution wid th standard deviationOrdered By: Boyd Rock on 12-21-2024 Erythrocyte distribution width (RBC) [Ratio] 44.6 fl High 35.1-43.9 [facility] Glomerular filtration rate ( GFR) estimation/1.73 sq m using serum, plasma, or whole bOrdered By: Boyd Rock 12-21-2024 GFR/1.73 sq M.predicted among non-blacks MDRD (S/P/Bld) [Vol rate/Area] 26 mL/min/{1.73_m2} Low >60 [facility] Hematocrit Auto (Bld) [Volum e fraction]Ordered By: Boyd Rock on 12-21-2024 Hematocrit (Bld) [Volume fraction] 37.3 % Low 40-54 [facility] Hemoglobin measurementOrdere d By: Boyd Rock 12-21-2024 Hemoglobin (Bld) [Mass/Vol] 12.2 g/dL Low 13.0-16.5 [facility] Immature granulocytes/100 WB C Auto (Bld)Ordered By: Boyd Rock on 12-21-2024 Immature granulocytes/100 WBC (Bld) 0.600 % 0.0-0.9 [facility] MCV (mean corpuscular volume ) determinationOrdered By: Boyd Rock 12-21-2024 MCV (RBC) [Entitic vol] 87.8 fL 80-94 [facility] Mean corpuscular hemoglobin (MCH) determinationOrdered By: Boyd Rock 12-21-2024 MCH (RBC) [Entitic mass] 28.7 pg 27.0-32.0 [facility] Monocyte percentageOrdered B y: Boyd Rock on 12-21-2024 Monocytes/100 WBC (Bld) 10.6 % High 0-10 [facility] Neutrophil percentageOrdered By: Boyd Garryliane on 12-21-2024 Neutrophils/100 WBC (Bld) 79.7 % High 47-70 [facility] Platelet countOrdered By: Susanna andrés Garrymiveronica on 12-21-2024 Platelets (Bld) [#/Vol] 145 10*3/uL Low 150-450 [facility] Potassium measurement (mass/ volume)Ordered By: Boyd Rock on 12-21-2024 Potassium (Unsp spec) [Mass/Vol] 4.2 mmol/L 3.3-5.1 [facility] RBC Auto (Bld) [#/Vol]Ordere d By: Susannagarrytesha Garrymiveronica on 12-21-2024 RBC (Bld) [#/Vol] 4.25 10*6/uL Low 4.6-6.2 [facility] Serum creatinine measurement (mass/volume)Ordered By: Susannagarrytesha Garrymiveronica on 12-21-2024 Creatinine [Mass/Vol] 2.49 mg/dL High 0.70-1.20 [facility] Serum glucose measurement (m ass/volume)Ordered By: Boyd Rock on 12-21-2024 Glucose [Mass/Vol] 134 mg/dL High 70-99 [facility] Serum or plasma calcium francine urement (mass/volume)Ordered By: Boyd Castañedamiveronica on 12-21-2024 Calcium [Mass/Vol] 9.0 mg/dL 7.6-11.0 [facility] Serum or plasma urea nitroge n measurement (mass/volume)Ordered By: Boyd Castañedamiveronica on 12-21-2024 Urea nitrogen [Mass/Vol] 51 mg/dL High 4-19 [facility] Sodium levelOrdered By: Lupe tesha Shweta on 12-21-2024 Sodium [Moles/Vol] 134 mmol/L 133-145 [facility] T4 freeOrdered By: Boyd Rock on 12-21-2024 Free T4 [Mass/Vol] 1.20 ng/dL 0.76-1.46 [facility] TSH DL <= 0.005 mIU/L QnOrde red By: Boyd Rock on 12-21-2024 TSH Qn 5.250 uIU/mL High 0.300-4.20 0 [facility] Vitamin B12 ser/plasOrdered By: Boyd Rock on 12-21-2024 Cobalamin (Vitamin B12) [Mass/Vol] 2000 pg/mL High 180-914 [facility] White blood cell (WBC) count Ordered By: Boyd Rock on 12-21-2024 WBC (Bld) [#/Vol] 8.7 10*3/uL 4.4-11.0 [facility] 12 Lead EKGon 12-20-2024 12 Lead EKG Normal [facility] Absolute lymphocyte countOrd ered By: Jody Servin on 12-20-2024 Lymphocytes Auto (Unsp spec) [#/Vol] 1.39 10*3/uL 0.83-4.51 [facility] Absolute lymphocyte countOrd ered By: Boyd Rock on 12-20-2024 Lymphocytes Auto (Unsp spec) [#/Vol] 1.09 10*3/uL 0.83-4.51 [facility] Activated partial thrombopla stin time (aPTT) in platelet poor plasma by coagulation aOrdered By: Jody Servin on 12-20-2024 aPTT Coag (PPP) [Time] 27.6 s 24.1-36.2 [facility] Anion gap in Serum or Plasma Ordered By: Jody Servin on 12-20-2024 Anion gap [Moles/Vol] 19 mmol/L High 5-15 [facility] Anion gap in Serum or Plasma Ordered By: Boyd Rock on 12-20-2024 Anion gap [Moles/Vol] 18 mmol/L High 5-15 [facility] Automated lymphocyte count a s percentage of total leukocytesOrdered By: Jody Servin on 12-20-2024 Lymphocytes/100 WBC Auto (Unsp spec) 11.8 % Low 19-41 [facility] Automated lymphocyte count a s percentage of total leukocytesOrdered By: Boyd Rock on 12-20-2024 Lymphocytes/100 WBC Auto (Unsp spec) 10.5 % Low [facility] BUN/creatinine ratioOrdered By: Jody Servin on 12-20-2024 Urea nitrogen/Creatinine [Mass ratio] 19.5 mg/mg 02-19 [facility] BUN/creatinine ratioOrdered By: Boyd Rock on 12-20-2024 Urea nitrogen/Creatinine [Mass ratio] 20.4 mg/mg High 02-19 [facility] Basophil percentageOrdered B y: Jody Servin on 12-20-2024 Basophils/100 WBC (Bld) 0.2 % 0-1 [facility] Basophil percentageOrdered B y: Boyd Rock on 12-20-2024 Basophils/100 WBC (Bld) 0.3 % 0- [facility] Bilirubin, totalOrdered By: Jody Servin on 12-20-2024 Bilirubin [Mass/Vol] 1.15 mg/dL 0.00-1.30 [facility] Bilirubin, totalOrdered By: Boyd Rock on 12-20-2024 Bilirubin [Mass/Vol] 1.08 mg/dL 0.00-1.30 [facility] CBC W/Diff, Automatedon 12-02 Absolute Lymph 1.39 X10 3/uL Normal 0.83-4.51 [facility] Comment on above: Performed By: #### L 100.0100, L300.3900, L300.4310 ####[facility] [address] [place], [address] Absolute Neut 9.0 X10 3/uL High 2.0-7.7 [facility] Comment on above: Performed By: #### L 100.0100, L300.3900, L300.4310 ####[facility] [address] [place], [address] Basophils/100 WBC (Bld) 0.2 % Normal 0-1 [facility] Comment on above: Performed By: #### L 100.0100, L300.3900, L300.4310 ####[facility] [address] [place], [address] Eosinophils/100 WBC (Bld) 0.1 % Normal 0-5 [facility] Comment on above: Performed By: #### L 100.0100, L300.3900, L300.4310 ####[facility] [address] [place], [address] Erythrocyte distribution width (RBC) [Ratio] 13.8 % Normal 11.6-14.6 [facility] Comment on above: Performed By: #### L 100.0100, L300.3900, L300.4310 ####[facility] [address] [place], [address] Hematocrit (Bld) [Volume fraction] 41.8 % Normal 40-54 [facility] Comment on above: Performed By: #### L 100.0100, L300.3900, L300.4310 ####[facility] [address] [place], [address] Hemoglobin (Bld) [Mass/Vol] 13.8 g/dL Normal 13.0-16.5 [facility] Comment on above: Performed By: #### L 100.0100, L300.3900, L300.4310 ####[facility] [address] [place], [address] IG% 0.500 Normal 0.0-0.9 [facility] Comment on above: Result Comment: IG% - Immature Granulocytes (promyelocytes, myelocytes andmetamyelocytes) > 1% indicates that a LEFT SHIFT is Present. Performed By: #### L 100.0100, L300.3900, L300.4310 ####[facility] [address] [place], [address] Lymphocytes/100 WBC (Bld) 11.8 % Low 19-41 [facility] Comment on above: Performed By: #### L 100.0100, L300.3900, L300.4310 ####[facility] [address] [place], [address] MCH (RBC) [Entitic mass] 28.6 pg Normal 27.0-32.0 [facility] Comment on above: Performed By: #### L 100.0100, L300.3900, L300.4310 ####[facility] [address] [place], [address] MCHC (RBC) [Mass/Vol] 33.0 g/dL Normal 32-36 [facility] Comment on above: Performed By: #### L 100.0100, L300.3900, L300.4310 ####[facility] [address] [place], [address] MCV (RBC) [Entitic vol] 86.7 fL Normal 80-94 [facility] Comment on above: Performed By: #### L 100.0100, L300.3900, L300.4310 ####[facility] [address] [place], [address] Monocytes/100 WBC (Bld) 11.5 % High 0-10 [facility] Comment on above: Performed By: #### L 100.0100, L300.3900, L300.4310 ####[facility] [address] [place], [address] Neutrophils/100 WBC (Bld) 75.9 % High 47-70 [facility] Comment on above: Performed By: #### L 100.0100, L300.3900, L300.4310 ####[facility] [address] [place], [address] Nucleated RBC (Bld) [#/Vol] 0 10*3/uL Normal 0-5 [facility] Comment on above: Performed By: #### L 100.0100, L300.3900, L300.4310 ####[facility] [address] [place], [address] Platelet mean volume (Bld) [Entitic vol] 13.3 fL High 6.2-12.0 [facility] Comment on above: Performed By: #### L 100.0100, L300.3900, L300.4310 ####[facility] [address] [place], [address] Platelets (Bld) [#/Vol] 231 10*3/uL Normal 150-450 [facility] Comment on above: Performed By: #### L 100.0100, L300.3900, L300.4310 ####[facility] [address] [place], [address] RBC (Bld) [#/Vol] 4.82 10*6/uL Normal 4.6-6.2 [facility] Comment on above: Performed By: #### L 100.0100, L300.3900, L300.4310 ####[facility] [address] [place], [address] RDW SD 43.2 fl Normal 35.1-43.9 [facility] Comment on above: Performed By: #### L 100.0100, L300.3900, L300.4310 ####[facility] [address] [place], [address] WBC (Bld) [#/Vol] 11.8 10*3/uL High 4.4-11.0 [facility] Comment on above: Performed By: #### L 100.0100, L300.3900, L300.4310 ####[facility] [address] [place], [address] CTA Abd/Pelvis W/WO Contrast on 12-20-2024 CTA Abd/Pelvis W/WO Contrast Normal [facility] Carbon dioxide, total [Moles /volume] in Central venous bloodOrdered By: Jody Servin on 12-20-2024 CO2 [Moles/Vol] 18.5 mmol/L Low 21.0-32.0 [facility] Carbon dioxide, total [Moles /volume] in Central venous bloodOrdered By: Boyd Rock on 12-20-2024 CO2 [Moles/Vol] 18.6 mmol/L Low 21.0-32.0 [facility] Chest PA and Lateralon 12-20 Chest PA and Lateral Normal [facility] Chloride assayOrdered By: Charlie Servin on 12-20-2024 Chloride [Moles/Vol] 93 mmol/L Low 98-108 [facility] Chloride assayOrdered By: Susanna Rock on 12-20-2024 Chloride [Moles/Vol] 94 mmol/L Low 98-108 [facility] Comprehensive Metabolic Prof ilon 12-20-2024 Albumin [Mass/Vol] 4.0 g/dL Normal 3.4-4.8 [facility] Comment on above: Performed By: #### L 500.4050, L501.2450, L501.5200 ####[facility] [address] [place], [address] Albumin/Globulin [Mass ratio] 1.0 {ratio} Normal 0.9-2.4 [facility] Comment on above: Performed By: #### L 500.4050, L501.2450, L501.5200 ####[facility] [address] [place], [address] ALK PHOS 180 U/L High 40-129 [facility] Comment on above: Performed By: #### L 500.4050, L501.2450, L501.5200 ####[facility] [address] [place], [address] ALT [Catalytic activity/Vol] 32 U/L Normal <=46 [facility] Comment on above: Performed By: #### L 500.4050, L501.2450, L501.5200 ####[facility] [address] [place], [address] AST [Catalytic activity/Vol] 28 U/L Normal <=37 [facility] Comment on above: Performed By: #### L 500.4050, L501.2450, L501.5200 ####[facility] [address] [place], [address] Bilirubin [Mass/Vol] 1.15 mg/dL Normal 0.00-1.30 [facility] Comment on above: Performed By: #### L 500.4050, L501.2450, L501.5200 ####[facility] [address] [place], [address] BUN/CRE 19.5 RATIO Normal 10-20 [facility] Comment on above: Performed By: #### L 500.4050, L501.2450, L501.5200 ####[facility] [address] [place], [address] Calcium [Mass/Vol] 9.5 mg/dL Normal 7.6-11.0 [facility] Comment on above: Performed By: #### L 500.4050, L501.2450, L501.5200 ####[facility] [address] [place], [address] Chloride [Moles/Vol] 93 mmol/L Low 98-108 [facility] Comment on above: Performed By: #### L 500.4050, L501.2450, L501.5200 ####[facility] [address] [place], [address] CO2 [Moles/Vol] 18.5 mmol/L Low 21.0-32.0 [facility] Comment on above: Performed By: #### L 500.4050, L501.2450, L501.5200 ####[facility] [address] [place], [address] Creatinine [Mass/Vol] 3.24 mg/dL High 0.70-1.20 [facility] Comment on above: Performed By: #### L 500.4050, L501.2450, L501.5200 ####[facility] [address] [place], [address] ECRCL 21.32 ml/min Low 50-250 [facility] Comment on above: Performed By: #### L 500.4050, L501.2450, L501.5200 ####[facility] [address] [place], [address] GAP 19 High 5-15 [facility] Comment on above: Performed By: #### L 500.4050, L501.2450, L501.5200 ####[facility] [address] [place], [address] GFR/1.73 sq M.predicted among non-blacks MDRD (S/P/Bld) [Vol rate/Area] 19 mL/min/{1.73_m2} Low >60 [facility] Comment on above: Result Comment: mL/m in/1.73m2 CKD-EPI Creatinine Equation (2020) Performed By: #### L 500.4050, L501.2450, L501.5200 ####[facility] [address] [place], [address] Globulin (S) [Mass/Vol] 4.0 g/dL Normal 2.2-4.2 [facility] Comment on above: Performed By: #### L 500.4050, L501.2450, L501.5200 ####[facility] [address] [place], [address] Glucose [Mass/Vol] 173 mg/dL High 70-99 [facility] Comment on above: Performed By: #### L 500.4050, L501.2450, L501.5200 ####[facility] [address] [place], [address] Potassium [Moles/Vol] 4.2 mmol/L Normal 3.3-5.1 [facility] Comment on above: Performed By: #### L 500.4050, L501.2450, L501.5200 ####[facility] [address] [place], [address] Sodium [Moles/Vol] 131 mmol/L Low 133-145 [facility] Comment on above: Performed By: #### L 500.4050, L501.2450, L501.5200 ####[facility] [address] [place], [address] T PROT 8.0 g/dL Normal 5.9-8.4 [facility] Comment on above: Performed By: #### L 500.4050, L501.2450, L501.5200 ####[facility] [address] [place], [address] Urea nitrogen [Mass/Vol] 63 mg/dL High 4-19 [facility] Comment on above: Performed By: #### L 500.4050, L501.2450, L501.5200 ####[facility] [address] [place], [address] Emergency Department Summary on 12-20-2024 Emergency Department Summary Normal [facility] Eosinophil percentageOrdered By: Jody Servin on 12-20-2024 Eosinophils/100 WBC (Bld) 0.1 % 0-5 [facility] Eosinophil percentageOrdered By: Boyd Rock on 12-20-2024 Eosinophils/100 WBC (Bld) 0.2 % 0-5 [facility] Erythrocyte distribution wid th ratioOrdered By: Jody Servin on 12-20-2024 Erythrocyte distribution width (RBC) [Ratio] 13.8 % 11.6-14.6 [facility] Erythrocyte distribution wid th ratioOrdered By: Boyd Rock on 12-20-2024 Erythrocyte distribution width (RBC) [Ratio] 13.7 % 11.6-14.6 [facility] Erythrocyte distribution wid th standard deviationOrdered By: Jody Servin on 12-20-2024 Erythrocyte distribution width (RBC) [Ratio] 43.2 fl 35.1-43.9 [facility] Erythrocyte distribution wid th standard deviationOrdered By: Boyd Rock on 12-20-2024 Erythrocyte distribution width (RBC) [Ratio] 43.4 fl 35.1-43.9 [facility] Glomerular filtration rate ( GFR) estimation/1.73 sq m using serum, plasma, or whole bOrdered By: Jody Servin on 12-20-2024 GFR/1.73 sq M.predicted among non-blacks MDRD (S/P/Bld) [Vol rate/Area] 19 mL/min/{1.73_m2} Low >60 [facility] Glomerular filtration rate ( GFR) estimation/1.73 sq m using serum, plasma, or whole bOrdered By: Boyd Rock on 12-20-2024 GFR/1.73 sq M.predicted among non-blacks MDRD (S/P/Bld) [Vol rate/Area] 18 mL/min/{1.73_m2} Low >60 [facility] Hematocrit Auto (Bld) [Volum e fraction]Ordered By: Jody Servin on 12-20-2024 Hematocrit (Bld) [Volume fraction] 41.8 % 40-54 [facility] Hematocrit Auto (Bld) [Volum e fraction]Ordered By: Boyd Rock on 12-20-2024 Hematocrit (Bld) [Volume fraction] 41.1 % 40-54 [facility] Hemoglobin measurementOrdere d By: Jody Servin on 12-20-2024 Hemoglobin (Bld) [Mass/Vol] 13.8 g/dL 13.0-16.5 [facility] Hemoglobin measurementOrdere d By: Boyd Rock on 12-20-2024 Hemoglobin (Bld) [Mass/Vol] 13.6 g/dL 13.0-16.5 [facility] Immature granulocytes/100 WB C Auto (Bld)Ordered By: Jody Servin on 12-20-2024 Immature granulocytes/100 WBC (Bld) 0.500 % 0.0-0.9 [facility] Immature granulocytes/100 WB C Auto (Bld)Ordered By: Boyd Rock on 12-20-2024 Immature granulocytes/100 WBC (Bld) 0.800 % 0.0-0.9 [facility] Lipaseon 12-20-2024 Lipase [Catalytic activity/Vol] 120 U/L High 13-75 [facility] Comment on above: Result Comment: Noah fletcher note:LIPASE revised reference range effective 22.New Lipase methodology. Expected to produce lower valuesthan the previous assay method.NEW Reference Range: 13 - 75 U/L Performed By: #### L 500.4050, L501.2450, L501.5200 ####[facility] [address] [place], [place], [id number] MCV (mean corpuscular volume ) determinationOrdered By: Jody Servin on 12-20-2024 MCV (RBC) [Entitic vol] 86.7 fL 80-94 [facility] MCV (mean corpuscular volume ) determinationOrdered By: Boyd Rock on 12-20-2024 MCV (RBC) [Entitic vol] 87.6 fL 80-94 [facility] Magnesiumon 12-20-2024 Magnesium [Mass/Vol] 2.4 mg/dL High 1.5-2.2 [facility] Comment on above: Performed By: #### L 500.4050, L501.2450, L501.5200 ####[facility] [address] [place], [place], [id number] Magnesium measurement (mass/ volume)Ordered By: Jody Servin on 12-20-2024 Magnesium (Unsp spec) [Mass/Vol] 2.4 mg/dL High 1.5-2.2 [facility] Mean corpuscular hemoglobin (MCH) determinationOrdered By: Jody Servin on 12-20-2024 MCH (RBC) [Entitic mass] 28.6 pg 27.0-32.0 [facility] Mean corpuscular hemoglobin (MCH) determinationOrdered By: Boyd Rock on 12-20-2024 MCH (RBC) [Entitic mass] 29.0 pg 27.0-32.0 [facility] Monocyte percentageOrdered B y: Jody Servin on 12-20-2024 Monocytes/100 WBC (Bld) 11.5 % High 0-10 [facility] Monocyte percentageOrdered B y: Boyd Rock on 12-20-2024 Monocytes/100 WBC (Bld) 12.1 % High 0-10 [facility] Neutrophil percentageOrdered By: Jody Servin on 12-20-2024 Neutrophils/100 WBC (Bld) 75.9 % High 47-70 [facility] Neutrophil percentageOrdered By: Boyd Rock on 12-20-2024 Neutrophils/100 WBC (Bld) 76.1 % High 47-70 [facility] No Panel InformationOrdered By: Jody Servin on 12-20-2024 28 U/L <38 [facility] No Panel InformationOrdered By: Boyd Rock on 12-20-2024 29 U/L <38 [facility] Partial Thromboplast Timeon 12-20-2024 aPTT Coag (Bld) [Time] 27.6 s Normal 24.1-36.2 [facility] Comment on above: Performed By: #### L 100.0100, L300.3900, L300.4310 ####[facility] [address], [place], [id number] Platelet countOrdered By: Charlie Servin on 12-20-2024 Platelets (Bld) [#/Vol] 231 10*3/uL 150-450 [facility] Platelet countOrdered By: Susanna Rock on 12-20-2024 Platelets (Bld) [#/Vol] 208 10*3/uL 150-450 [facility] Potassium measurement (mass/ volume)Ordered By: Jody Servin on 12-20-2024 Potassium (Unsp spec) [Mass/Vol] 4.2 mmol/L 3.3-5.1 [facility] Potassium measurement (mass/ volume)Ordered By: Boyd Rock on 12-20-2024 Potassium (Unsp spec) [Mass/Vol] 4.0 mmol/L 3.3-5.1 [facility] Prothrombin Time w/INRon INR Coag (PPP) [Relative time] 1.1 {INR} Normal [facility] Comment on above: Performed By: #### L 100.0100, L300.3900, L300.4310 ####[facility] [address] [place], [address] PT Coag (PPP) [Time] 14.1 s Normal 11.7-14.9 [facility] Comment on above: Performed By: #### L 100.0100, L300.3900, L300.4310 ####[facility] [address] [place], [address] Prothrombin timeOrdered By: Jody Servin on 12-20-2024 PT Coag (PPP) [Time] 14.1 s 11.7-14.9 [facility] RBC Auto (Bld) [#/Vol]Ordere d By: Jody Servin on 12-20-2024 RBC (Bld) [#/Vol] 4.82 10*6/uL 4.6-6.2 [facility] RBC Auto (Bld) [#/Vol]Ordere d By: Boyd Rock on 12-20-2024 RBC (Bld) [#/Vol] 4.69 10*6/uL 4.6-6.2 [facility] Serum creatinine measurement (mass/volume)Ordered By: Jody Servin on 12-20-2024 Creatinine [Mass/Vol] 3.24 mg/dL High 0.70-1.20 [facility] Serum creatinine measurement (mass/volume)Ordered By: Boyd Rock on 12-20-2024 Creatinine [Mass/Vol] 3.35 mg/dL High 0.70-1.20 [facility] Serum globulin measurementOr dered By: Jody Servin on 12-20-2024 Globulin (S) [Mass/Vol] 4.0 g/dL 2.2-4.2 [facility] Serum globulin measurementOr dered By: Boyd Rock on 12-20-2024 Globulin (S) [Mass/Vol] 3.7 g/dL 2.2-4.2 [facility] Serum glucose measurement (m ass/volume)Ordered By: Jody Servin on 12-20-2024 Glucose [Mass/Vol] 173 mg/dL High 70-99 [facility] Serum glucose measurement (m ass/volume)Ordered By: Boyd Rock on 12-20-2024 Glucose [Mass/Vol] 205 mg/dL High 70-99 [facility] Serum or plasma alanine guerrero otransferase (ALT) measurementOrdered By: Jody Servin on 12-20-2024 ALT [Catalytic activity/Vol] 32 U/L <47 [facility] Serum or plasma alanine guerrero otransferase (ALT) measurementOrdered By: Boyd Rock on 12-20-2024 ALT [Catalytic activity/Vol] 31 U/L <47 [facility] Serum or plasma albumin francine urement (mass/volume)Ordered By: Jody Servin on 12-20-2024 Albumin [Mass/Vol] 4.0 g/dL 3.4-4.8 [facility] Serum or plasma albumin francine urement (mass/volume)Ordered By: Boyd Rock on 12-20-2024 Albumin [Mass/Vol] 4.0 g/dL 3.4-4.8 [facility] Serum or plasma albumin/glob ulin mass ratioOrdered By: Jody Servin on 12-20-2024 Albumin/Globulin [Mass ratio] 1.0 {ratio} 0.9-2.4 [facility] Serum or plasma albumin/glob ulin mass ratioOrdered By: Boyd Rock on 12-20-2024 Albumin/Globulin [Mass ratio] 1.1 {ratio} 0.9-2.4 [facility] Serum or plasma alkaline bell sphatase measurementOrdered By: Jody Servin on 12-20-2024 ALP [Catalytic activity/Vol] 180 U/L High 40-129 [facility] Serum or plasma alkaline bell sphatase measurementOrdered By: Boyd Rock on 12-20-2024 ALP [Catalytic activity/Vol] 167 U/L High 40-129 [facility] Serum or plasma calcium francine urement (mass/volume)Ordered By: Jody Servin on 12-20-2024 Calcium [Mass/Vol] 9.5 mg/dL 7.6-11.0 [facility] Serum or plasma calcium francine urement (mass/volume)Ordered By: Boyd Rock on 12-20-2024 Calcium [Mass/Vol] 9.2 mg/dL 7.6-11.0 [facility] Serum or plasma urea nitroge n measurement (mass/volume)Ordered By: Jody Servin on 12-20-2024 Urea nitrogen [Mass/Vol] 63 mg/dL High - [facility] Serum or plasma urea nitroge n measurement (mass/volume)Ordered By: Boyd Rock on 12-20-2024 Urea nitrogen [Mass/Vol] 69 mg/dL High - [facility] Sodium levelOrdered By: Shaan Servin on 12-20-2024 Sodium [Moles/Vol] 131 mmol/L Low 133-145 [facility] Sodium levelOrdered By: Lupe Rock on 12-20-2024 Sodium [Moles/Vol] 131 mmol/L Low 133-145 [facility] Stool Occult Blood iFOBon STOB Positive Normal [facility] Comment on above: Performed By: #### M 100.2613 ####[facility] [address] [place], [place], [id number] Stool gastrointestinal hemog lobin detection by immunologic methodOrdered By: Jody Servin on 12-20-2024 Lower GI hemoglobin IA Ql (Stl) Positive Abnormal [facility] Total proteinOrdered By: Gunjan Servin on 12-20-2024 Protein [Mass/Vol] 8.0 g/dL 5.9-8.4 [facility] Total proteinOrdered By: Anastacio rivera Mahoganyveronica on 12-20-2024 Protein [Mass/Vol] 7.7 g/dL 5.9-8.4 [facility] Type AND Screenon 12-20-2024 ABO and Rh group Nom (Bld) Blood group O Rh(D) positive Normal [facility] Comment on above: Order Comment: Has p t arrived? YHGI Performed By: #### B TS ####[facility] [address] [place], [place], [address](222) White blood cell (WBC) count Ordered By: Jody Servin on 12-20-2024 WBC (Bld) [#/Vol] 11.8 10*3/uL High 4.4-11.0 [facility] White blood cell (WBC) count Ordered By: Boyd Rock on 12-20-2024 WBC (Bld) [#/Vol] 10.3 10*3/uL 4.4-11.0 [facility] Clostridium difficile detect ion by polymerase chain reactionOrdered By: Boyd Rock on 12-18-2024 C. difficile DNA REAGAN+probe Ql (Unsp spec) [facility] Bedside Glucoseon 12-17-2024 FINGERSTICK GLU 253 mg/dL High 74-106 [facility] Comment on above: Result Comment: WILDA GEMENT OF PATIENT CARE PER NURSING PROTOCOL Performed By: #### L 501.080 ####[facility] [address] [place], [address] FINGERSTICK GLU 178 mg/dL High 74-106 [facility] System Comment on above: Result Comment: WILDA GEMENT OF PATIENT CARE PER NURSING PROTOCOL Performed By: #### L 501.080 ####[facility] [address] [place], [address] [facility] deOrdered By: Marycarmen Marlow on 12-17-2024 Glucose [Mass/Vol] 253 mg/dL High 74-106 [facility] Absolute lymphocyte countOrd ered By: Ramonita Herron on 12-16-2024 Lymphocytes Auto (Unsp spec) [#/Vol] 0.93 10*3/uL 0.83-4.51 [facility] Anion gap in Serum or Plasma Ordered By: Ramonita Herron on 12-16-2024 Anion gap [Moles/Vol] 18 mmol/L High 5-15 [facility] Automated lymphocyte count a s percentage of total leukocytesOrdered By: Ramonita Herron on 12-16-2024 Lymphocytes/100 WBC Auto (Unsp spec) 10.7 % Low 19-41 [facility] BUN/creatinine ratioOrdered By: Ramonita Herron on 12-16-2024 Urea nitrogen/Creatinine [Mass ratio] 21.8 mg/mg High 10-20 [facility] Basic Metabolic Profile (BMP )on 12-16-2024 BUN/CRE 21.8 RATIO High 10-20 [facility] Comment on above: Performed By: #### L 100.0100, L500.2500 ####[facility] [address] [place], [address] Calcium [Mass/Vol] 9.3 mg/dL Normal 7.6-11.0 [facility] Comment on above: Performed By: #### L 100.0100, L500.2500 ####[facility] [address] [place], [address] Chloride [Moles/Vol] 93 mmol/L Low 98-108 [facility] Comment on above: Performed By: #### L 100.0100, L500.2500 ####[facility] [address] [place], [address] CO2 [Moles/Vol] 19.2 mmol/L Low 21.0-32.0 [facility] Comment on above: Performed By: #### L 100.0100, L500.2500 ####[facility] [address] [place], [address] Creatinine [Mass/Vol] 2.65 mg/dL High 0.70-1.20 [facility] Comment on above: Performed By: #### L 100.0100, L500.2500 ####[facility] [address] [place], [address] ECRCL 25.90 ml/min Low 50-250 [facility] Comment on above: Performed By: #### L 100.0100, L500.2500 ####[facility] [address] [place], [address] GAP 18 High 5-15 [facility] Comment on above: Performed By: #### L 100.0100, L500.2500 ####[facility] [address] [place], [address] GFR/1.73 sq M.predicted among non-blacks MDRD (S/P/Bld) [Vol rate/Area] 24 mL/min/{1.73_m2} Low >60 [facility] Comment on above: Result Comment: mL/m in/1.73m2 CKD-EPI Creatinine Equation (2020) Performed By: #### L 100.0100, L500.2500 ####[facility] [address] [place], [address] Glucose [Mass/Vol] 182 mg/dL High 70-99 [facility] Comment on above: Performed By: #### L 100.0100, L500.2500 ####[facility] [address] [place], [address] Potassium [Moles/Vol] 3.8 mmol/L Normal 3.3-5.1 [facility] Comment on above: Performed By: #### L 100.0100, L500.2500 ####[facility] [address] [place], [address] Sodium [Moles/Vol] 131 mmol/L Low 133-145 [facility] Comment on above: Performed By: #### L 100.0100, L500.2500 ####[facility] [address] [place], [address] Urea nitrogen [Mass/Vol] 58 mg/dL High 4-19 [facility] Comment on above: Performed By: #### L 100.0100, L500.2500 ####[facility] [address] [place], [address] Basophil percentageOrdered B y: Ramonita Herron on 12-16-2024 Basophils/100 WBC (Bld) 0.2 % 0-1 [facility] Bedside Glucoseon 12-16-2024 FINGERSTICK GLU 215 mg/dL High 74-106 [facility] Comment on above: Result Comment: WILDA GEMENT OF PATIENT CARE PER NURSING PROTOCOL Performed By: #### L 501.080 ####[facility] [address] [place], [address] FINGERSTICK GLU 237 mg/dL High 74-106 [facility] Comment on above: Result Comment: WILDA GEMENT OF PATIENT CARE PER NURSING PROTOCOL Performed By: #### L 501.080 ####[facility] [address] [place], [address] FINGERSTICK GLU 152 mg/dL High 74-106 [facility] Comment on above: Result Comment: WILDA GEMENT OF PATIENT CARE PER NURSING PROTOCOL Performed By: #### L 501.080 ####[facility] [address] [place], [address] FINGERSTICK GLU 169 mg/dL High 74-106 [facility] Comment on above: Result Comment: WILDA GEMENT OF PATIENT CARE PER NURSING PROTOCOL Performed By: #### L 501.080 ####[facility] [address] [place], [address] CBC W/Diff, Automatedon 12-01 Absolute Lymph 0.93 X10 3/uL Normal 0.83-4.51 [facility] Comment on above: Performed By: #### L 100.0100, L500.2500 ####[facility] [address] [place], [address] Absolute Neut 6.6 X10 3/uL Normal 2.0-7.7 [facility] Comment on above: Performed By: #### L 100.0100, L500.2500 ####[facility] [address] [place], [address] Basophils/100 WBC (Bld) 0.2 % Normal 0-1 [facility] Comment on above: Performed By: #### L 100.0100, L500.2500 ####[facility] [address] [place], [address] Eosinophils/100 WBC (Bld) 0.5 % Normal 0-5 [facility] Comment on above: Performed By: #### L 100.0100, L500.2500 ####[facility] [address] [place], [address] Erythrocyte distribution width (RBC) [Ratio] 13.4 % Normal 11.6-14.6 [facility] Comment on above: Performed By: #### L 100.0100, L500.2500 ####[facility] [address] [place], [address] Hematocrit (Bld) [Volume fraction] 40.1 % Normal 40-54 [facility] Comment on above: Performed By: #### L 100.0100, L500.2500 ####[facility] [address] [place], [address] Hemoglobin (Bld) [Mass/Vol] 13.3 g/dL Normal 13.0-16.5 [facility] Comment on above: Performed By: #### L 100.0100, L500.2500 ####[facility] [address] [place], [address] IG% 0.800 Normal 0.0-0.9 [facility] Comment on above: Result Comment: IG% - Immature Granulocytes (promyelocytes, myelocytes andmetamyelocytes) > 1% indicates that a LEFT SHIFT is Present. Performed By: #### L 100.0100, L500.2500 ####[facility] [address] [place], [address] Lymphocytes/100 WBC (Bld) 10.7 % Low 19-41 [facility] Comment on above: Performed By: #### L 100.0100, L500.2500 ####[facility] [address] [place], [address] MCH (RBC) [Entitic mass] 28.6 pg Normal 27.0-32.0 [facility] Comment on above: Performed By: #### L 100.0100, L500.2500 ####[facility] [address] [place], [address] MCHC (RBC) [Mass/Vol] 33.2 g/dL Normal 32-36 [facility] Comment on above: Performed By: #### L 100.0100, L500.2500 ####[facility] [address] [place], [address] MCV (RBC) [Entitic vol] 86.2 fL Normal 80-94 [facility] Comment on above: Performed By: #### L 100.0100, L500.2500 ####[facility] [address] [place], [address] Monocytes/100 WBC (Bld) 12.1 % High 0-10 [facility] Comment on above: Performed By: #### L 100.0100, L500.2500 ####[facility] [address] [place], [address] Neutrophils/100 WBC (Bld) 75.7 % High 47-70 [facility] Comment on above: Performed By: #### L 100.0100, L500.2500 ####[facility] [address] [place], [address] Nucleated RBC (Bld) [#/Vol] 0 10*3/uL Normal 0-5 [facility] Comment on above: Performed By: #### L 100.0100, L500.2500 ####[facility] [address] [place], [address] Platelet mean volume (Bld) [Entitic vol] 13.2 fL High 6.2-12.0 [facility] Comment on above: Performed By: #### L 100.0100, L500.2500 ####[facility] [address] [place], [address] Platelets (Bld) [#/Vol] 181 10*3/uL Normal 150-450 [facility] Comment on above: Performed By: #### L 100.0100, L500.2500 ####[facility] [address] [place], [address] RBC (Bld) [#/Vol] 4.65 10*6/uL Normal 4.6-6.2 [facility] Comment on above: Performed By: #### L 100.0100, L500.2500 ####[facility] [address] [place], [address] RDW SD 42.2 fl Normal 35.1-43.9 [facility] Comment on above: Performed By: #### L 100.0100, L500.2500 ####[facility] [address] [place], [address] WBC (Bld) [#/Vol] 8.7 10*3/uL Normal 4.4-11.0 [facility] Comment on above: Performed By: #### L 100.0100, L500.2500 ####[facility] [address] [place], [address] Carbon dioxide, total [Moles /volume] in Central venous bloodOrdered By: Ramonita Herron on 12-16-2024 CO2 [Moles/Vol] 19.2 mmol/L Low 21.0-32.0 [facility] Chloride assayOrdered By: Parish Herron on 12-16-2024 Chloride [Moles/Vol] 93 mmol/L Low 98-108 [facility] Eosinophil percentageOrdered By: Ramonita Herron 12-16-2024 Eosinophils/100 WBC (Bld) 0.5 % 0-5 [facility] Erythrocyte distribution wid th ratioOrdered By: Ramonita Herron on 12-16-2024 Erythrocyte distribution width (RBC) [Ratio] 13.4 % 11.6-14.6 [facility] Erythrocyte distribution wid th standard deviationOrdered By: Ramonita Herron on 12-16-2024 Erythrocyte distribution width (RBC) [Ratio] 42.2 fl 35.1-43.9 [facility] Glomerular filtration rate ( GFR) estimation/1.73 sq m using serum, plasma, or whole bOrdered By: Ramonita Herron on 12-16-2024 GFR/1.73 sq M.predicted among non-blacks MDRD (S/P/Bld) [Vol rate/Area] 24 mL/min/{1.73_m2} Low >60 [facility] Hematocrit Auto (Bld) [Volum e fraction]Ordered By: Ramonita Herron on 12-16-2024 Hematocrit (Bld) [Volume fraction] 40.1 % 40-54 [facility] Hemoglobin measurementOrdere d By: Ramonita Herron on 12-16-2024 Hemoglobin (Bld) [Mass/Vol] 13.3 g/dL 13.0-16.5 [facility] Immature granulocytes/100 WB C Auto (Bld)Ordered By: Ramonita Herron on 12-16-2024 Immature granulocytes/100 WBC (Bld) 0.800 % 0.0-0.9 [facility] MCV (mean corpuscular volume ) determinationOrdered By: Ramonita Herron 12-16-2024 MCV (RBC) [Entitic vol] 86.2 fL 80-94 [facility] Mean corpuscular hemoglobin (MCH) determinationOrdered By: Ramonita Herron 12-16-2024 MCH (RBC) [Entitic mass] 28.6 pg 27.0-32.0 [facility] Monocyte percentageOrdered B y: Ramonita Herron on 12-16-2024 Monocytes/100 WBC (Bld) 12.1 % High 0-10 [facility] Neutrophil percentageOrdered By: Ramonita Herron on 12-16-2024 Neutrophils/100 WBC (Bld) 75.7 % High 47-70 [facility] Platelet countOrdered By: Parish Herron on 12-16-2024 Platelets (Bld) [#/Vol] 181 10*3/uL 150-450 [facility] Potassium measurement (mass/ volume)Ordered By: Ramonita Herron on 12-16-2024 Potassium (Unsp spec) [Mass/Vol] 3.8 mmol/L 3.3-5.1 [facility] RBC Auto (Bld) [#/Vol]Ordere d By: Ramonita Herron on 12-16-2024 RBC (Bld) [#/Vol] 4.65 10*6/uL 4.6-6.2 [facility] Serum creatinine measurement (mass/volume)Ordered By: Ramonita Herron on 12-16-2024 Creatinine [Mass/Vol] 2.65 mg/dL High 0.70-1.20 [facility] Serum glucose measurement (m ass/volume)Ordered By: Ramonita Herron on 12-16-2024 Glucose [Mass/Vol] 182 mg/dL High 70-99 [facility] Serum or plasma calcium francine urement (mass/volume)Ordered By: Ramonita Herron on 12-16-2024 Calcium [Mass/Vol] 9.3 mg/dL 7.6-11.0 [facility] Serum or plasma urea nitroge n measurement (mass/volume)Ordered By: Ramonita Herron on 12-16-2024 Urea nitrogen [Mass/Vol] 58 mg/dL High 4-19 [facility] Sodium levelOrdered By: Mary Herron on 12-16-2024 Sodium [Moles/Vol] 131 mmol/L Low 133-145 [facility] White blood cell (WBC) count Ordered By: Ramonita Herron on 12-16-2024 WBC (Bld) [#/Vol] 8.7 10*3/uL 4.4-11.0 [facility] 12 Lead EKGon 12-15-2024 12 Lead EKG Normal [facility] Activated partial thrombopla stin time (aPTT) in platelet poor plasma by coagulation aOrdered By: Payal Weldon on 12-15-2024 aPTT Coag (PPP) [Time] 222.8 s High 24.1-36.2 [facility] Basic Metabolic Profile (BMP )on 12-15-2024 BUN/CRE 20.4 RATIO High 10-20 [facility] Comment on above: Performed By: #### L 100.0100, L500.2500, L501.4021, L503.7505, L300.3900, L300.4310 ####[facility] [address] [place], [address] Calcium [Mass/Vol] 9.5 mg/dL Normal 7.6-11.0 [facility] Comment on above: Performed By: #### L 100.0100, L500.2500, L501.4021, L503.7505, L300.3900, L300.4310 ####[facility] [address] [place], [address] Chloride [Moles/Vol] 91 mmol/L Low 98-108 [facility] Comment on above: Performed By: #### L 100.0100, L500.2500, L501.4021, L503.7505, L300.3900, L300.4310 ####[facility] [address] [place], [address] CO2 [Moles/Vol] 18.4 mmol/L Low 21.0-32.0 [facility] Comment on above: Performed By: #### L 100.0100, L500.2500, L501.4021, L503.7505, L300.3900, L300.4310 ####[facility] [address] [place], [address] Creatinine [Mass/Vol] 2.90 mg/dL High 0.70-1.20 [facility] Comment on above: Performed By: #### L 100.0100, L500.2500, L501.4021, L503.7505, L300.3900, L300.4310 ####[facility] [address] [place], [address] ECRCL 23.97 ml/min Low 50-250 [facility] Comment on above: Performed By: #### L 100.0100, L500.2500, L501.4021, L503.7505, L300.3900, L300.4310 ####[facility] [address] [place], [address] GAP 19 High 5-15 [facility] Comment on above: Performed By: #### L 100.0100, L500.2500, L501.4021, L503.7505, L300.3900, L300.4310 ####[facility] [address] [place], [address] GFR/1.73 sq M.predicted among non-blacks MDRD (S/P/Bld) [Vol rate/Area] 21 mL/min/{1.73_m2} Low >60 [facility] Comment on above: Result Comment: mL/m in/1.73m2 CKD-EPI Creatinine Equation (2020) Performed By: #### L 100.0100, L500.2500, L501.4021, L503.7505, L300.3900, L300.4310 ####[facility] [address] [place], [address] Glucose [Mass/Vol] 266 mg/dL High 70-99 [facility] Comment on above: Performed By: #### L 100.0100, L500.2500, L501.4021, L503.7505, L300.3900, L300.4310 ####[facility] [address] [place], [address] Potassium [Moles/Vol] 4.5 mmol/L Normal 3.3-5.1 [facility] Comment on above: Performed By: #### L 100.0100, L500.2500, L501.4021, L503.7505, L300.3900, L300.4310 ####[facility] [address] [place], [address] Sodium [Moles/Vol] 129 mmol/L Low 133-145 [facility] Comment on above: Performed By: #### L 100.0100, L500.2500, L501.4021, L503.7505, L300.3900, L300.4310 ####[facility] [address] [place], [address] Urea nitrogen [Mass/Vol] 59 mg/dL High 4-19 [facility] Comment on above: Performed By: #### L 100.0100, L500.2500, L501.4021, L503.7505, L300.3900, L300.4310 ####[facility] [address] [place], [address] Bedside Glucoseon 12-15-2024 FINGERSTICK GLU 192 mg/dL High 74-106 [facility] Comment on above: Result Comment: WILDA GEMENT OF PATIENT CARE PER NURSING PROTOCOL Performed By: #### L 501.080 ####[facility] [address] [place], [address] FINGERSTICK GLU 186 mg/dL High 74-106 [facility] Comment on above: Result Comment: WILDA GEMENT OF PATIENT CARE PER NURSING PROTOCOL Performed By: #### L 501.080 ####[facility] [address] [place], [address] CBC W/Diff, Automatedon 08-1 Absolute Lymph 1.43 X10 3/uL Normal 0.83-4.51 [facility] Comment on above: Performed By: #### L 100.0100, L500.2500, L501.4021, L503.7505, L300.3900, L300.4310 ####[facility] [address] [place], [address] Absolute Neut 11.7 X10 3/uL High 2.0-7.7 [facility] Comment on above: Performed By: #### L 100.0100, L500.2500, L501.4021, L503.7505, L300.3900, L300.4310 ####[facility] [address] [place], [address] Basophils/100 WBC (Bld) 0.2 % Normal 0-1 [facility] Comment on above: Performed By: #### L 100.0100, L500.2500, L501.4021, L503.7505, L300.3900, L300.4310 ####[facility] [address] [place], [address] Eosinophils/100 WBC (Bld) 0.1 % Normal 0-5 [facility] Comment on above: Performed By: #### L 100.0100, L500.2500, L501.4021, L503.7505, L300.3900, L300.4310 ####[facility] [address] [place], [address] Erythrocyte distribution width (RBC) [Ratio] 13.4 % Normal 11.6-14.6 [facility] Comment on above: Performed By: #### L 100.0100, L500.2500, L501.4021, L503.7505, L300.3900, L300.4310 ####[facility] [address] [place], [address] Hematocrit (Bld) [Volume fraction] 40.2 % Normal 40-54 [facility] Comment on above: Performed By: #### L 100.0100, L500.2500, L501.4021, L503.7505, L300.3900, L300.4310 ####[facility] [address] [place], [address] Hemoglobin (Bld) [Mass/Vol] 13.7 g/dL Normal 13.0-16.5 [facility] Comment on above: Performed By: #### L 100.0100, L500.2500, L501.4021, L503.7505, L300.3900, L300.4310 ####[facility] [address] [place], [address] IG% 0.800 Normal 0.0-0.9 [facility] Comment on above: Result Comment: IG% - Immature Granulocytes (promyelocytes, myelocytes andmetamyelocytes) > 1% indicates that a LEFT SHIFT is Present. Performed By: #### L 100.0100, L500.2500, L501.4021, L503.7505, L300.3900, L300.4310 ####[facility] [address] [place], [address] Lymphocytes/100 WBC (Bld) 9.7 % Low 19-41 [facility] Comment on above: Performed By: #### L 100.0100, L500.2500, L501.4021, L503.7505, L300.3900, L300.4310 ####[facility] [address] [place], [address] MCH (RBC) [Entitic mass] 29.0 pg Normal 27.0-32.0 [facility] Comment on above: Performed By: #### L 100.0100, L500.2500, L501.4021, L503.7505, L300.3900, L300.4310 ####[facility] [address] [place], [address] MCHC (RBC) [Mass/Vol] 34.1 g/dL Normal 32-36 [facility] Comment on above: Performed By: #### L 100.0100, L500.2500, L501.4021, L503.7505, L300.3900, L300.4310 ####[facility] [address] [place], [address] MCV (RBC) [Entitic vol] 85.2 fL Normal 80-94 [facility] Comment on above: Performed By: #### L 100.0100, L500.2500, L501.4021, L503.7505, L300.3900, L300.4310 ####[facility] [address] [place], [address] Monocytes/100 WBC (Bld) 9.9 % Normal 0-10 [facility] Comment on above: Performed By: #### L 100.0100, L500.2500, L501.4021, L503.7505, L300.3900, L300.4310 ####[facility] [address] [place], [address] Neutrophils/100 WBC (Bld) 79.3 % High 47-70 [facility] Comment on above: Performed By: #### L 100.0100, L500.2500, L501.4021, L503.7505, L300.3900, L300.4310 ####[facility] [address] [place], [address] Nucleated RBC (Bld) [#/Vol] 0 10*3/uL Normal 0-5 [facility] Comment on above: Performed By: #### L 100.0100, L500.2500, L501.4021, L503.7505, L300.3900, L300.4310 ####[facility] [address] [place], [address] Platelet mean volume (Bld) [Entitic vol] 13.4 fL High 6.2-12.0 [facility] Comment on above: Performed By: #### L 100.0100, L500.2500, L501.4021, L503.7505, L300.3900, L300.4310 ####[facility] [address] [place], [address] Platelets (Bld) [#/Vol] 242 10*3/uL Normal 150-450 [facility] Comment on above: Performed By: #### L 100.0100, L500.2500, L501.4021, L503.7505, L300.3900, L300.4310 ####[facility] [address] [place], [address] RBC (Bld) [#/Vol] 4.72 10*6/uL Normal 4.6-6.2 [facility] Comment on above: Performed By: #### L 100.0100, L500.2500, L501.4021, L503.7505, L300.3900, L300.4310 ####[facility] [address] [place], [address] RDW SD 41.6 fl Normal 35.1-43.9 [facility] Comment on above: Performed By: #### L 100.0100, L500.2500, L501.4021, L503.7505, L300.3900, L300.4310 ####[facility] [address] [place], [address] WBC (Bld) [#/Vol] 14.8 10*3/uL High 4.4-11.0 [facility] Comment on above: Performed By: #### L 100.0100, L500.2500, L501.4021, L503.7505, L300.3900, L300.4310 ####[facility] [address] [place], [address] Chest 1 View (Portable)on Chest 1 View (Portable) Normal [facility] Consultation - Cardiologyon 12-15-2024 Consultation - Cardiology Normal [facility] Echo, Limited Studyon 2024 Echo, Limited Study Normal [facility] Emergency Department Summary on 12-15-2024 Emergency Department Summary Normal [facility] H AND P Exam - Hospitaliston 12-15-2024 H&P Exam - Hospitalist Normal [facility] L501.4021on 12-15-2024 Trop T High Sen 1137 ng/L Invalid Interpretation Code <=22 [facility] Comment on above: Result Comment: Crit ical Result(s) Called at 1318: by: MONICA KOO.??Results read back by same. Performed By: #### L 100.0100, L500.2500, L501.4021, L503.7505, L300.3900, L300.4310 ####[facility] [address] [place], [place], [id number] Limited echocardiogram repor tOrdered By: Sunil Faye on 12-15-2024 Study report [facility] Natriuretic peptide.B prohor efrem N-Terminal [Mass/volume] in Serum or PlasmaOrdered By: Payal Weldon on 12-15-2024 Natriuretic peptide.B prohormone N-Terminal [Mass/Vol] 1961 pg/mL High <1800 [facility] Partial Thromboplast Timeon 12-15-2024 aPTT Coag (Bld) [Time] 222.8 s Invalid Interpretation Code 24.1-36.2 [facility] Comment on above: Order Comment: CRITI KENNEY VALUE CALLED TO sandy archer12/15/24 1355 Lexii Huynh.RESULTS READ BACK BY same Performed By: #### L 100.0100, L500.2500, L501.4021, L503.7505, L300.3900, L300.4310 ####[facility] [address] [place], [address] Pro- Brain NATRIURETIC PEPTI Sharon 12-15-2024 Natriuretic peptide B (Bld) [Mass/Vol] 1961 pg/mL High <=1800 [facility] Comment on above: Result Comment: Hear t Failure Unlikely: < 300 pg/mLHeart Failure Likely< 50 Years: > 450 pg/mL50-75 Years: > 900 pg/mL>75 Years: > 1800 pg/mL Performed By: #### L 100.0100, L500.2500, L501.4021, L503.7505, L300.3900, L300.4310 ####[facility] [address] [place], [address] Prothrombin Time w/INRon INR Coag (PPP) [Relative time] 1.3 {INR} Normal [facility] Comment on above: Order Comment: CRITI KENNEY VALUE CALLED TO [facility]12/15/24 [facility] Lexii Huynh.RESULTS READ BACK BY same Performed By: #### L 100.0100, L500.2500, L501.4021, L503.7505, L300.3900, L300.4310 ####[facility] [address] [place], [address] PT Coag (PPP) [Time] 16.8 s High 11.7-14.9 [facility] Comment on above: Order Comment: CRITI KENNEY VALUE CALLED TO [facility]12/15/24 [facility] Lexii Huynh.RESULTS READ BACK BY same Performed By: #### L 100.0100, L500.2500, L501.4021, L503.7505, L300.3900, L300.4310 ####[facility] [address] [place], [address] Prothrombin timeOrdered By: Payal Weldon on 12-15-2024 PT Coag (PPP) [Time] 16.8 s High 11.7-14.9 [facility] Troponin T HS 2 HRon 025 Trop T High Sen 1199 ng/L Invalid Interpretation Code <=22 [facility] Comment on above: Order Comment: WAS T O BE DRAWN AT 1411 STILL IN ER AT 1440 CALLED ER [facility] THEY'RE BUSY BUT SHELL ELT THE NURSE KNOW Result Comment: Crit ical Result(s) Called at 1718: by:MONICA ANTONIO. ??Results read back by same. Performed By: #### L 499.0042 ####[facility] [address] [place], [place], [address] Troponin T HS 4 HRon 025 Trop T High Sen 1115 ng/L Invalid Interpretation Code <=22 [facility] Comment on above: Result Comment: Crit ical result called 12/15/2024-20:19 by Seymour Mcclure. Results read back by same.Hemolysis present, Results??could be affected.??Critical Result(s) Called at: by:??Results read back bysame. Performed By: #### L 499.0043 ####[facility] [address] [place], [place], [address] Troponin T.cardiac [Mass/vol ume] in Serum or Plasma by High sensitivity methodOrdered By: Payal Weldon on 12-15-2024 Troponin T.cardiac High sensitivity method [Mass/Vol] 1115 ng/L High <22 [facility] Troponin T.cardiac High sensitivity method [Mass/Vol] 1199 ng/L High <22 [facility] Troponin T.cardiac High sensitivity method [Mass/Vol] 1137 ng/L High <22 [facility] Cardiac Cath Interventionon 12-14-2024 Cardiac Cath Intervention Normal [facility] Absolute lymphocyte countOrd ered By: Boyd Rock on 12-13-2024 Lymphocytes Auto (Unsp spec) [#/Vol] 1.28 10*3/uL 0.83-4.51 [facility] Anion gap in Serum or Plasma Ordered By: Boyd Rock on 12-13-2024 Anion gap [Moles/Vol] 21 mmol/L High 5-15 [facility] Automated lymphocyte count a s percentage of total leukocytesOrdered By: Boyd Rock on 12-13-2024 Lymphocytes/100 WBC Auto (Unsp spec) 9.3 % Low 19-41 [facility] BUN/creatinine ratioOrdered By: Boyd Rock on 12-13-2024 Urea nitrogen/Creatinine [Mass ratio] 18.7 mg/mg 10-20 [facility] Basophil percentageOrdered B y: Boyd Rock on 12-13-2024 Basophils/100 WBC (Bld) 0.4 % 0-1 [facility] Bilirubin, totalOrdered By: Boyd Rock on 12-13-2024 Bilirubin [Mass/Vol] 1.60 mg/dL High 0.00-1.30 [facility] Carbon dioxide, total [Moles /volume] in Central venous bloodOrdered By: Boyd Rock on 12-13-2024 CO2 [Moles/Vol] 15.7 mmol/L Low 21.0-32.0 [facility] Chloride assayOrdered By: Susanna Rock on 12-13-2024 Chloride [Moles/Vol] 93 mmol/L Low 98-108 [facility] Eosinophil percentageOrdered By: Boyd Rock on 12-13-2024 Eosinophils/100 WBC (Bld) 1.5 % 0-5 [facility] Erythrocyte distribution wid th ratioOrdered By: Boyd Rock on 12-13-2024 Erythrocyte distribution width (RBC) [Ratio] 14.3 % 11.6-14.6 [facility] Erythrocyte distribution wid th standard deviationOrdered By: Boyd Rock on 12-13-2024 Erythrocyte distribution width (RBC) [Ratio] 45.2 fl High 35.1-43.9 [facility] Glomerular filtration rate ( GFR) estimation/1.73 sq m using serum, plasma, or whole bOrdered By: Boyd Rock on 12-13-2024 GFR/1.73 sq M.predicted among non-blacks MDRD (S/P/Bld) [Vol rate/Area] 19 mL/min/{1.73_m2} Low >60 [facility] Hematocrit Auto (Bld) [Volum e fraction]Ordered By: Boyd Rock on 12-13-2024 Hematocrit (Bld) [Volume fraction] 35.9 % Low 40-54 [facility] Hemoglobin measurementOrdere d By: Boyd Castañedamiveronica on 12-13-2024 Hemoglobin (Bld) [Mass/Vol] 11.8 g/dL Low 13.0-16.5 [facility] Immature granulocytes/100 WB C Auto (Bld)Ordered By: Boyd Rock on 12-13-2024 Immature granulocytes/100 WBC (Bld) 0.700 % 0.0-0.9 [facility] MCV (mean corpuscular volume ) determinationOrdered By: Boyd Rock on 12-13-2024 MCV (RBC) [Entitic vol] 87.6 fL 80-94 [facility] Mean corpuscular hemoglobin (MCH) determinationOrdered By: Boyd Rock on 12-13-2024 MCH (RBC) [Entitic mass] 28.8 pg 27.0-32.0 [facility] Monocyte percentageOrdered B y: Boyd Rock on 12-13-2024 Monocytes/100 WBC (Bld) 8.7 % 0-10 [facility] Neutrophil percentageOrdered By: Boyd Castañedamiveronica on 12-13-2024 Neutrophils/100 WBC (Bld) 79.4 % High 47-70 [facility] No Panel InformationOrdered By: Boyd Rock on 12-13-2024 29 U/L <38 [facility] Platelet countOrdered By: Susanna Rock on 12-13-2024 Platelets (Bld) [#/Vol] 199 10*3/uL 150-450 [facility] Potassium measurement (mass/ volume)Ordered By: Boyd Rock on 12-13-2024 Potassium (Unsp spec) [Mass/Vol] 5.1 mmol/L 3.3-5.1 [facility] RBC Auto (Bld) [#/Vol]Ordere d By: Lupeabbeybrittni Rock on 12-13-2024 RBC (Bld) [#/Vol] 4.10 10*6/uL Low 4.6-6.2 [facility] Serum creatinine measurement (mass/volume)Ordered By: Boyd Rock on 12-13-2024 Creatinine [Mass/Vol] 3.18 mg/dL High 0.70-1.20 [facility] Serum globulin measurementOr dered By: oByd Rock on 12-13-2024 Globulin (S) [Mass/Vol] 4.2 g/dL 2.2-4.2 [facility] Serum glucose measurement (m ass/volume)Ordered By: Boyd Rock on 12-13-2024 Glucose [Mass/Vol] 289 mg/dL High 70-99 [facility] Serum or plasma alanine guerrero otransferase (ALT) measurementOrdered By: Boyd Rock on 12-13-2024 ALT [Catalytic activity/Vol] 22 U/L <47 [facility] Serum or plasma albumin francine urement (mass/volume)Ordered By: Boyd Rock on 12-13-2024 Albumin [Mass/Vol] 4.1 g/dL 3.4-4.8 [facility] Serum or plasma albumin/glob ulin mass ratioOrdered By: Boyd Rock on 12-13-2024 Albumin/Globulin [Mass ratio] 1.0 {ratio} 0.9-2.4 [facility] Serum or plasma alkaline bell sphatase measurementOrdered By: Boyd Rock on 12-13-2024 ALP [Catalytic activity/Vol] 147 U/L High 40-129 [facility] Serum or plasma calcium francine urement (mass/volume)Ordered By: Boyd Rock on 12-13-2024 Calcium [Mass/Vol] 9.7 mg/dL 7.6-11.0 [facility] Serum or plasma urea nitroge n measurement (mass/volume)Ordered By: Boyd Rock on 12-13-2024 Urea nitrogen [Mass/Vol] 59 mg/dL High 4-19 [facility] Sodium levelOrdered By: Lupe Rock on 12-13-2024 Sodium [Moles/Vol] 130 mmol/L Low 133-145 [facility] T4 freeOrdered By: Boyd Rock on 12-13-2024 Free T4 [Mass/Vol] 1.40 ng/dL 0.76-1.46 [facility] Total proteinOrdered By: Anastacio Rock on 12-13-2024 Protein [Mass/Vol] 8.3 g/dL 5.9-8.4 [facility] White blood cell (WBC) count Ordered By: Boyd Rock on 12-13-2024 WBC (Bld) [#/Vol] 13.7 10*3/uL High 4.4-11.0 [facility] Anion gap in Serum or Plasma Ordered By: Gustabo Pérez on 12-12-2024 Anion gap [Moles/Vol] 17 mmol/L High - [facility] BUN/creatinine ratioOrdered By: Gustabo Pérez on 12-12-2024 Urea nitrogen/Creatinine [Mass ratio] 17.9 mg/mg 02-19 [facility] Basic Metabolic Profile (BMP )on 12-12-2024 BUN/CRE 17.9 RATIO Normal 02-19 [facility] Comment on above: Performed By: #### L 500.2500 ####[facility] [address] [place], [address] Calcium [Mass/Vol] 9.6 mg/dL Normal 7.6-11.0 [facility] Comment on above: Performed By: #### L 500.2500 ####[facility] [address] [place], [address] Chloride [Moles/Vol] 93 mmol/L Low 98-108 [facility] Comment on above: Performed By: #### L 500.2500 ####[facility] [address] [place], [address] CO2 [Moles/Vol] 18.2 mmol/L Low 21.0-32.0 [facility] Comment on above: Performed By: #### L 500.2500 ####[facility] [address] [place], [address] Creatinine [Mass/Vol] 3.15 mg/dL High 0.70-1.20 [facility] Comment on above: Performed By: #### L 500.2500 ####[facility] [address] [place], [address] GAP 17 High 5-15 [facility] Comment on above: Performed By: #### L 500.2500 ####[facility] [address] [place], [address] GFR/1.73 sq M.predicted among non-blacks MDRD (S/P/Bld) [Vol rate/Area] 19 mL/min/{1.73_m2} Low >60 [facility] Comment on above: Result Comment: mL/m in/1.73m2 CKD-EPI Creatinine Equation (2020) Performed By: #### L 500.2500 ####[facility] [address] [place], [address] Glucose [Mass/Vol] 289 mg/dL High 70-99 [facility] Comment on above: Performed By: #### L 500.2500 ####[facility] [address] [place], [address] Potassium [Moles/Vol] 5.0 mmol/L Normal 3.3-5.1 [facility] Comment on above: Result Comment: Hemo lysis present, Results??could be affected.?? Performed By: #### L 500.2500 ####[facility] [address] [place], [address] Sodium [Moles/Vol] 128 mmol/L Low 133-145 [facility] Comment on above: Performed By: #### L 500.2500 ####[facility] [address] [place], [address] Urea nitrogen [Mass/Vol] 56 mg/dL High 4-19 [facility] Comment on above: Performed By: #### L 500.2500 ####[facility] [address] [place], [address] Carbon dioxide, total [Moles /volume] in Central venous bloodOrdered By: Gustabo Pérez on 12-12-2024 CO2 [Moles/Vol] 18.2 mmol/L Low 21.0-32.0 [facility] Cardiology Visit Reporton Cardiology Visit Report Normal [facility] Chloride assayOrdered By: Lydia Pérez on 12-12-2024 Chloride [Moles/Vol] 93 mmol/L Low 98-108 [facility] Glomerular filtration rate ( GFR) estimation/1.73 sq m using serum, plasma, or whole bOrdered By: Gustabo Pérez on 12-12-2024 GFR/1.73 sq M.predicted among non-blacks MDRD (S/P/Bld) [Vol rate/Area] 19 mL/min/{1.73_m2} Low >60 [facility] Potassium measurement (mass/ volume)Ordered By: Gustabo Pérez on 12-12-2024 Potassium (Unsp spec) [Mass/Vol] 5.0 mmol/L 3.3-5.1 [facility] Serum creatinine measurement (mass/volume)Ordered By: Gustabo Pérez on 12-12-2024 Creatinine [Mass/Vol] 3.15 mg/dL High 0.70-1.20 [facility] Serum glucose measurement (m ass/volume)Ordered By: Gustabo Pérez on 12-12-2024 Glucose [Mass/Vol] 289 mg/dL High 70-99 [facility] Serum or plasma calcium francine urement (mass/volume)Ordered By: Gustabo Pérez on 12-12-2024 Calcium [Mass/Vol] 9.6 mg/dL 7.6-11.0 [facility] Serum or plasma urea nitroge n measurement (mass/volume)Ordered By: Gustabo Pérez on 12-12-2024 Urea nitrogen [Mass/Vol] 56 mg/dL High 4-19 [facility] Sodium levelOrdered By: Gustabo Pérez on 12-12-2024 Sodium [Moles/Vol] 128 mmol/L Low 133-145 [facility] Cardiac Cath Interventionon 12-11-2024 Cardiac Cath Intervention Normal [facility] Absolute lymphocyte countOrd ered By: Shaan Santos on 12-08-2024 Lymphocytes Auto (Unsp spec) [#/Vol] 1.20 10*3/uL 0.83-4.51 [facility] Anion gap in Serum or Plasma Ordered By: Shaan Santos on 12-08-2024 Anion gap [Moles/Vol] 18 mmol/L High 5-15 [facility] Automated lymphocyte count a s percentage of total leukocytesOrdered By: Shaan Santos on 12-08-2024 Lymphocytes/100 WBC Auto (Unsp spec) 11.4 % Low 19-41 [facility] BUN/creatinine ratioOrdered By: Shaan Santos on 12-08-2024 Urea nitrogen/Creatinine [Mass ratio] 15.6 mg/mg 10-20 [facility] Basic Metabolic Profile (BMP )on 12-08-2024 BUN/CRE 15.6 RATIO Normal 10-20 [facility] Comment on above: Performed By: #### L 100.0100, L500.2500 ####[facility] [address] [place], [address] Calcium [Mass/Vol] 9.6 mg/dL Normal 7.6-11.0 [facility] Comment on above: Performed By: #### L 100.0100, L500.2500 ####[facility] [address] [place], [address] Chloride [Moles/Vol] 95 mmol/L Low 98-108 [facility] Comment on above: Performed By: #### L 100.0100, L500.2500 ####[facility] [address] [place], [address] CO2 [Moles/Vol] 21.2 mmol/L Normal 21.0-32.0 [facility] Comment on above: Performed By: #### L 100.0100, L500.2500 ####[facility] [address] [place], [address] Creatinine [Mass/Vol] 2.84 mg/dL High 0.70-1.20 [facility] Comment on above: Performed By: #### L 100.0100, L500.2500 ####[facility] [address] [place], [address] ECRCL 24.45 ml/min Low 50-250 [facility] Comment on above: Performed By: #### L 100.0100, L500.2500 ####[facility] [address] [place], [address] GAP 18 High 5-15 [facility] Comment on above: Performed By: #### L 100.0100, L500.2500 ####[facility] [address] [place], [address] GFR/1.73 sq M.predicted among non-blacks MDRD (S/P/Bld) [Vol rate/Area] 22 mL/min/{1.73_m2} Low >60 [facility] Comment on above: Result Comment: mL/m in/1.73m2 CKD-EPI Creatinine Equation (2020) Performed By: #### L 100.0100, L500.2500 ####[facility] [address] [place], [address] Glucose [Mass/Vol] 178 mg/dL High 70-99 [facility] Comment on above: Performed By: #### L 100.0100, L500.2500 ####[facility] [address] [place], [address] Potassium [Moles/Vol] 3.4 mmol/L Normal 3.3-5.1 [facility] Comment on above: Performed By: #### L 100.0100, L500.2500 ####[facility] [address] [place], [address] Sodium [Moles/Vol] 134 mmol/L Normal 133-145 [facility] Comment on above: Performed By: #### L 100.0100, L500.2500 ####[facility] [address] [place], [address] Urea nitrogen [Mass/Vol] 44 mg/dL High 4-19 [facility] Comment on above: Performed By: #### L 100.0100, L500.2500 ####[facility] [address] [place], [address] BUN Normal 4-19 [facility] Comment on above: Result Comment: Canc elled via OM: Order cancelled - Patient discharged Performed By: #### L 500.2500, L100.0100 ####[facility] [address] [place], [address] BUN/CRE Normal 10-20 [facility] Comment on above: Result Comment: Canc elled via OM: Order cancelled - Patient discharged Performed By: #### L 500.2500, L100.0100 ####[facility] [address] [place], [address] Calcium Normal 7.6-11.0 [facility] Comment on above: Result Comment: Canc elled via OM: Order cancelled - Patient discharged Performed By: #### L 500.2500, L100.0100 ####[facility] [address] [place], [address] CL Normal 98-108 [facility] Comment on above: Result Comment: Canc elled via OM: Order cancelled - Patient discharged Performed By: #### L 500.2500, L100.0100 ####[facility] [address] [place], [address] CO2 Normal 21.0-32.0 [facility] Comment on above: Result Comment: Canc elled via OM: Order cancelled - Patient discharged Performed By: #### L 500.2500, L100.0100 ####[facility] [address] [place], [address] CREAT,SERUM Normal 0.70-1.20 [facility] Comment on above: Result Comment: Canc elled via OM: Order cancelled - Patient discharged Performed By: #### L 500.2500, L100.0100 ####[facility] [address] [place], [address] eGFR Normal >60 [facility] Comment on above: Result Comment: Canc elled via OM: Order cancelled - Patient discharged Performed By: #### L 500.2500, L100.0100 ####[facility] [address] [place], [address] GAP Normal 5-15 [facility] Comment on above: Result Comment: Canc elled via OM: Order cancelled - Patient discharged Performed By: #### L 500.2500, L100.0100 ####[facility] [address] [place], [address] GLU Normal 70-99 [facility] Comment on above: Result Comment: Canc elled via OM: Order cancelled - Patient discharged Performed By: #### L 500.2500, L100.0100 ####[facility] [address] [place], [address] Potassium Normal 3.3-5.1 [facility] Comment on above: Result Comment: Canc elled via OM: Order cancelled - Patient discharged Performed By: #### L 500.2500, L100.0100 ####[facility] [address] [place], [address] Basic Metabolic Profile (BMP) Normal 133-145 [facility] Comment on above: Result Comment: Canc elled via OM: Order cancelled - Patient discharged Performed By: #### L 500.2500, L100.0100 ####[facility] [address] [place], [address] Basophil percentageOrdered B y: Shaan Santos on 12-08-2024 Basophils/100 WBC (Bld) 0.5 % 0-1 [facility] Bedside Glucoseon 12-08-2024 FINGERSTICK GLU 249 mg/dL High 74-106 [facility] Comment on above: Result Comment: WILDA BARROSO OF PATIENT CARE PER NURSING PROTOCOL Performed By: #### L 501.080 ####[facility] [address] [place], [address] FINGERSTICK GLU 185 mg/dL High 74-106 [facility] Comment on above: Result Comment: WILDA GEMENT OF PATIENT CARE PER NURSING PROTOCOL Performed By: #### L 501.080 ####[facility] [address] [place], [address] FINGERSTICK GLU 222 mg/dL High 74-106 [facility] Comment on above: Result Comment: WILDA GEMENT OF PATIENT CARE PER NURSING PROTOCOL Performed By: #### L 501.080 ####[facility] [address] [place], [address] CBC W/Diff, Automatedon 08-0 8-2025 Absolute Lymph 1.20 X10 3/uL Normal 0.83-4.51 [facility] Comment on above: Performed By: #### L 100.0100, L500.2500 ####[facility] [address] [place], [address] Absolute Neut 7.8 X10 3/uL High 2.0-7.7 [facility] Comment on above: Performed By: #### L 100.0100, L500.2500 ####[facility] [address] [place], [address] Basophils/100 WBC (Bld) 0.5 % Normal 0-1 [facility] Comment on above: Performed By: #### L 100.0100, L500.2500 ####[facility] [address] [place], [address] Eosinophils/100 WBC (Bld) 1.0 % Normal 0-5 [facility] Comment on above: Performed By: #### L 100.0100, L500.2500 ####[facility] [address] [place], [address] Erythrocyte distribution width (RBC) [Ratio] 13.4 % Normal 11.6-14.6 [facility] Comment on above: Performed By: #### L 100.0100, L500.2500 ####[facility] [address] [place], [address] Hematocrit (Bld) [Volume fraction] 39.2 % Low 40-54 [facility] Comment on above: Performed By: #### L 100.0100, L500.2500 ####[facility] [address] [place], [address] Hemoglobin (Bld) [Mass/Vol] 12.9 g/dL Low 13.0-16.5 [facility] Comment on above: Performed By: #### L 100.0100, L500.2500 ####[facility] [address] [place], [address] IG% 0.900 Normal 0.0-0.9 [facility] Comment on above: Result Comment: IG% - Immature Granulocytes (promyelocytes, myelocytes andmetamyelocytes) > 1% indicates that a LEFT SHIFT is Present. Performed By: #### L 100.0100, L500.2500 ####[facility] [address] [place], [address] Lymphocytes/100 WBC (Bld) 11.4 % Low 19-41 [facility] Comment on above: Performed By: #### L 100.0100, L500.2500 ####[facility] [address] [place], [address] MCH (RBC) [Entitic mass] 28.9 pg Normal 27.0-32.0 [facility] Comment on above: Performed By: #### L 100.0100, L500.2500 ####[facility] [address] [place], [address] MCHC (RBC) [Mass/Vol] 32.9 g/dL Normal 32-36 [facility] Comment on above: Performed By: #### L 100.0100, L500.2500 ####[facility] [address] [place], [address] MCV (RBC) [Entitic vol] 87.7 fL Normal 80-94 [facility] Comment on above: Performed By: #### L 100.0100, L500.2500 ####[facility] [address] [place], [address] Monocytes/100 WBC (Bld) 12.1 % High 0-10 [facility] Comment on above: Performed By: #### L 100.0100, L500.2500 ####[facility] [address] [place], [address] Neutrophils/100 WBC (Bld) 74.1 % High 47-70 [facility] Comment on above: Performed By: #### L 100.0100, L500.2500 ####[facility] [address] [place], [address] Nucleated RBC (Bld) [#/Vol] 0 10*3/uL Normal 0-5 [facility] Comment on above: Performed By: #### L 100.0100, L500.2500 ####[facility] [address] [place], [address] Platelet mean volume (Bld) [Entitic vol] 13.2 fL High 6.2-12.0 [facility] Comment on above: Performed By: #### L 100.0100, L500.2500 ####[facility] [address] [place], [address] Platelets (Bld) [#/Vol] 178 10*3/uL Normal 150-450 [facility] Comment on above: Performed By: #### L 100.0100, L500.2500 ####[facility] [address] [place], [address] RBC (Bld) [#/Vol] 4.47 10*6/uL Low 4.6-6.2 [facility] Comment on above: Performed By: #### L 100.0100, L500.2500 ####[facility] [address] [place], [address] RDW SD 42.8 fl Normal 35.1-43.9 [facility] Comment on above: Performed By: #### L 100.0100, L500.2500 ####[facility] [address] [place], [address] WBC (Bld) [#/Vol] 10.5 10*3/uL Normal 4.4-11.0 [facility] Comment on above: Performed By: #### L 100.0100, L500.2500 ####[facility] [address] [place], [address] Absolute Neut Normal 2.0-7.7 [facility] Comment on above: Result Comment: Canc elled via OM: Order cancelled - Patient discharged Performed By: #### L 500.2500, L100.0100 ####[facility] [address] [place], [address] HCT Normal 40-54 [facility] Comment on above: Result Comment: Canc elled via OM: Order cancelled - Patient discharged Performed By: #### L 500.2500, L100.0100 ####[facility] [address] [place], [address] HGB Normal 13.0-16.5 [facility] Comment on above: Result Comment: Canc elled via OM: Order cancelled - Patient discharged Performed By: #### L 500.2500, L100.0100 ####[facility] [address] [place], [address] MCH Normal 27.0-32.0 [facility] Comment on above: Result Comment: Canc elled via OM: Order cancelled - Patient discharged Performed By: #### L 500.2500, L100.0100 ####[facility] [address] [place], [address] MCHC Normal 32-36 [facility] Comment on above: Result Comment: Canc elled via OM: Order cancelled - Patient discharged Performed By: #### L 500.2500, L100.0100 ####[facility] [address] [place], [address] MCV Normal 80-94 [facility] Comment on above: Result Comment: Canc elled via OM: Order cancelled - Patient discharged Performed By: #### L 500.2500, L100.0100 ####[facility] [address] [place], [address] NEUT% Normal 47-70 [facility] Comment on above: Result Comment: Canc elled via OM: Order cancelled - Patient discharged Performed By: #### L 500.2500, L100.0100 ####[facility] [address] [place], [address] PLT Normal 150-450 [facility] Comment on above: Result Comment: Canc elled via OM: Order cancelled - Patient discharged Performed By: #### L 500.2500, L100.0100 ####[facility] [facility] [address] [place], [address] RBC Normal 4.6-6.2 [facility] Comment on above: Result Comment: Canc elled via OM: Order cancelled - Patient discharged Performed By: #### L 500.2500, L100.0100 ####[facility] [address] [place], [address] RDW CV Normal 11.6-14.6 [facility] Comment on above: Result Comment: Canc elled via OM: Order cancelled - Patient discharged Performed By: #### L 500.2500, L100.0100 ####[facility] [address] [place], [address] RDW SD Normal 35.1-43.9 [facility] Comment on above: Result Comment: Canc elled via OM: Order cancelled - Patient discharged Performed By: #### L 500.2500, L100.0100 ####[facility] [address] [place], [address] WBC Normal 4.4-11.0 [facility] Comment on above: Result Comment: Canc elled via OM: Order cancelled - Patient discharged Performed By: #### L 500.2500, L100.0100 ####[facility] [address] [place], [address] Carbon dioxide, total [Moles /volume] in Central venous bloodOrdered By: Shaan Santos on 12-08-2024 CO2 [Moles/Vol] 21.2 mmol/L 21.0-32.0 [facility] Chloride assayOrdered By: Charlie Santos on 12-08-2024 Chloride [Moles/Vol] 95 mmol/L Low 98-108 [facility] Eosinophil percentageOrdered By: Shaan Santos on 12-08-2024 Eosinophils/100 WBC (Bld) 1.0 % 0-5 [facility] Erythrocyte distribution wid th ratioOrdered By: Shaan Santos on 12-08-2024 Erythrocyte distribution width (RBC) [Ratio] 13.4 % 11.6-14.6 [facility] Erythrocyte distribution wid th standard deviationOrdered By: Shaan Santos on 12-08-2024 Erythrocyte distribution width (RBC) [Ratio] 42.8 fl 35.1-43.9 [facility] Glomerular filtration rate ( GFR) estimation/1.73 sq m using serum, plasma, or whole bOrdered By: Shaan Santos on 12-08-2024 GFR/1.73 sq M.predicted among non-blacks MDRD (S/P/Bld) [Vol rate/Area] 22 mL/min/{1.73_m2} Low >60 [facility] Glucose measurement at [facility] deOrdered By: Alex Sanon on 12-08-2024 Glucose [Mass/Vol] 249 mg/dL High 74-106 [facility] Hematocrit Auto (Bld) [Volum e fraction]Ordered By: Shaan Santos on 12-08-2024 Hematocrit (Bld) [Volume fraction] 39.2 % Low 40-54 [facility] Hemoglobin measurementOrdere d By: Shaan Santos on 12-08-2024 Hemoglobin (Bld) [Mass/Vol] 12.9 g/dL Low 13.0-16.5 [facility] Immature granulocytes/100 WB C Auto (Bld)Ordered By: Shaan Santos on 12-08-2024 Immature granulocytes/100 WBC (Bld) 0.900 % 0.0-0.9 [facility] MCV (mean corpuscular volume ) determinationOrdered By: Shaan Santos on 12-08-2024 MCV (RBC) [Entitic vol] 87.7 fL 80-94 [facility] Mean corpuscular hemoglobin (MCH) determinationOrdered By: Shaan Santos on 12-08-2024 MCH (RBC) [Entitic mass] 28.9 pg 27.0-32.0 [facility] Monocyte percentageOrdered B y: Shaan Santos on 12-08-2024 Monocytes/100 WBC (Bld) 12.1 % High 0-10 [facility] Neutrophil percentageOrdered By: Shaan Santos on 12-08-2024 Neutrophils/100 WBC (Bld) 74.1 % High 47-70 [facility] Platelet countOrdered By: Charlie Santos on 12-08-2024 Platelets (Bld) [#/Vol] 178 10*3/uL 150-450 [facility] Potassium measurement (mass/ volume)Ordered By: Shaan Santos on 12-08-2024 Potassium (Unsp spec) [Mass/Vol] 3.4 mmol/L 3.3-5.1 [facility] RBC Auto (Bld) [#/Vol]Ordere d By: Shaan Santos on 12-08-2024 RBC (Bld) [#/Vol] 4.47 10*6/uL Low 4.6-6.2 [facility] Serum creatinine measurement (mass/volume)Ordered By: Shaan Santos on 12-08-2024 Creatinine [Mass/Vol] 2.84 mg/dL High 0.70-1.20 [facility] Serum glucose measurement (m ass/volume)Ordered By: Shaan Santos on 12-08-2024 Glucose [Mass/Vol] 178 mg/dL High 70-99 [facility] Serum or plasma calcium francine urement (mass/volume)Ordered By: Shaan Santos on 12-08-2024 Calcium [Mass/Vol] 9.6 mg/dL 7.6-11.0 [facility] Serum or plasma urea nitroge n measurement (mass/volume)Ordered By: Shaan Santos on 12-08-2024 Urea nitrogen [Mass/Vol] 44 mg/dL High 4-19 [facility] Sodium levelOrdered By: Shaan Santos on 12-08-2024 Sodium [Moles/Vol] 134 mmol/L 133-145 [facility] White blood cell (WBC) count Ordered By: Shaan Santos on 12-08-2024 WBC (Bld) [#/Vol] 10.5 10*3/uL 4.4-11.0 [facility] 12 Lead EKGon 12-07-2024 12 Lead EKG Normal [facility] Absolute lymphocyte countOrd ered By: Juli German on 12-07-2024 Lymphocytes Auto (Unsp spec) [#/Vol] 0.94 10*3/uL 0.83-4.51 [facility] Absolute lymphocyte countOrd ered By: Boyd Rock on 12-07-2024 Lymphocytes Auto (Unsp spec) [#/Vol] 1.19 10*3/uL 0.83-4.51 [facility] Anion gap in Serum or Plasma Ordered By: Juli German on 12-07-2024 Anion gap [Moles/Vol] 18 mmol/L High 5- [facility] Anion gap in Serum or Plasma Ordered By: Boyd Rock on 12-07-2024 Anion gap [Moles/Vol] 16 mmol/L High 5-15 [facility] Automated lymphocyte count a s percentage of total leukocytesOrdered By: Juli German on 12-07-2024 Lymphocytes/100 WBC Auto (Unsp spec) 7.9 % Low [facility] Automated lymphocyte count a s percentage of total leukocytesOrdered By: Boyd Rock on 12-07-2024 Lymphocytes/100 WBC Auto (Unsp spec) 11.4 % Low [facility] BUN/creatinine ratioOrdered By: Juli German on 12-07-2024 Urea nitrogen/Creatinine [Mass ratio] 14.5 mg/mg 02-19 [facility] BUN/creatinine ratioOrdered By: Boyd Rock on 12-07-2024 Urea nitrogen/Creatinine [Mass ratio] 15.3 mg/mg 02-19 [facility] Basic Metabolic Profile (BMP )on 12-07-2024 BUN/CRE 14.5 RATIO Normal 02-19 [facility] Comment on above: Performed By: #### L 100.0100, L500.2500, L501.4021 ####[facility] [address] [place], [address] Calcium [Mass/Vol] 9.5 mg/dL Normal 7.6-11.0 [facility] Comment on above: Performed By: #### L 100.0100, L500.2500, L501.4021 ####[facility] [address] [place], [address] Chloride [Moles/Vol] 94 mmol/L Low 98-108 [facility] Comment on above: Performed By: #### L 100.0100, L500.2500, L501.4021 ####[facility] [address] [place], [address] CO2 [Moles/Vol] 20.9 mmol/L Low 21.0-32.0 [facility] Comment on above: Performed By: #### L 100.0100, L500.2500, L501.4021 ####[facility] [address] [place], [address] Creatinine [Mass/Vol] 2.76 mg/dL High 0.70-1.20 [facility] Comment on above: Performed By: #### L 100.0100, L500.2500, L501.4021 ####[facility] [address] [place], [address] ECRCL 25.62 ml/min Low 50-250 [facility] Comment on above: Performed By: #### L 100.0100, L500.2500, L501.4021 ####[facility] [address] [place], [address] GAP 18 High 5-15 [facility] Comment on above: Performed By: #### L 100.0100, L500.2500, L501.4021 ####[facility] [address] [place], [address] GFR/1.73 sq M.predicted among non-blacks MDRD (S/P/Bld) [Vol rate/Area] 23 mL/min/{1.73_m2} Low >60 [facility] Comment on above: Result Comment: mL/m in/1.73m2 CKD-EPI Creatinine Equation (2020) Performed By: #### L 100.0100, L500.2500, L501.4021 ####[facility] [address] [place], [address] Glucose [Mass/Vol] 209 mg/dL High 70-99 [facility] Comment on above: Performed By: #### L 100.0100, L500.2500, L501.4021 ####[facility] [address] [place], [address] Potassium [Moles/Vol] 4.1 mmol/L Normal 3.3-5.1 [facility] Comment on above: Performed By: #### L 100.0100, L500.2500, L501.4021 ####[facility] [address] [place], [address] Sodium [Moles/Vol] 132 mmol/L Low 133-145 [facility] Comment on above: Performed By: #### L 100.0100, L500.2500, L501.4021 ####[facility] [address] [place], [address] Urea nitrogen [Mass/Vol] 40 mg/dL High 4-19 [facility] Comment on above: Performed By: #### L 100.0100, L500.2500, L501.4021 ####[facility] [address] [place], [address] BUN Normal 4-19 [facility] Comment on above: Result Comment: Canc elled via OM: Order cancelled - Patient discharged Performed By: #### L 500.2500, L100.0100 ####[facility] [address] [place], [address] BUN/CRE Normal 10-20 [facility] Comment on above: Result Comment: Canc elled via OM: Order cancelled - Patient discharged Performed By: #### L 500.2500, L100.0100 ####[facility] [address] [place], [address] Calcium Normal 7.6-11.0 [facility] Comment on above: Result Comment: Canc elled via OM: Order cancelled - Patient discharged Performed By: #### L 500.2500, L100.0100 ####[facility] [address] [place], [address] CL Normal 98-108 [facility] Comment on above: Result Comment: Canc elled via OM: Order cancelled - Patient discharged Performed By: #### L 500.2500, L100.0100 ####[facility] [address] [place], [address] CO2 Normal 21.0-32.0 [facility] Comment on above: Result Comment: Canc elled via OM: Order cancelled - Patient discharged Performed By: #### L 500.2500, L100.0100 ####[facility] [address] [place], [address] CREAT,SERUM Normal 0.70-1.20 [facility] Comment on above: Result Comment: Canc elled via OM: Order cancelled - Patient discharged Performed By: #### L 500.2500, L100.0100 ####[facility] [address] [place], [address] eGFR Normal >60 [facility] Comment on above: Result Comment: Canc elled via OM: Order cancelled - Patient discharged Performed By: #### L 500.2500, L100.0100 ####[facility] [address] [place], [address] GAP Normal 5-15 [facility] Comment on above: Result Comment: Canc elled via OM: Order cancelled - Patient discharged Performed By: #### L 500.2500, L100.0100 ####[facility] [address] [place], [address] GLU Normal 70-99 [facility] Comment on above: Result Comment: Canc elled via OM: Order cancelled - Patient discharged Performed By: #### L 500.2500, L100.0100 ####[facility] [address] [place], [address] Potassium Normal 3.3-5.1 [facility] Comment on above: Result Comment: Canc elled via OM: Order cancelled - Patient discharged Performed By: #### L 500.2500, L100.0100 ####[facility] [address] [place], [address] Basic Metabolic Profile (BMP) Normal 133-145 [facility] Comment on above: Result Comment: Canc elled via OM: Order cancelled - Patient discharged Performed By: #### L 500.2500, L100.0100 ####[facility] [address] [place], [address] Basophil percentageOrdered B y: Juli German on 12-07-2024 Basophils/100 WBC (Bld) 0.3 % 0-1 [facility] Basophil percentageOrdered B y: Boyd Castañedaliane on 12-07-2024 Basophils/100 WBC (Bld) 0.2 % 0-1 [facility] Bedside Glucoseon 12-07-2024 FINGERSTICK GLU 187 mg/dL High 74-106 [facility] Comment on above: Result Comment: WILDA BARROSO OF PATIENT CARE PER NURSING PROTOCOL Performed By: #### L 501.080 ####[facility] [address] [place], [address] Bilirubin, totalOrdered By: Susannaandrés Castañedaliane on 12-07-2024 Bilirubin [Mass/Vol] 1.48 mg/dL High 0.00-1.30 [facility] CBC W/Diff, Automatedon Absolute Lymph 0.94 X10 3/uL Normal 0.83-4.51 [facility] Comment on above: Performed By: #### L 100.0100, L500.2500, L501.4021 ####[facility] [address] [place], [address] Absolute Neut 9.4 X10 3/uL High 2.0-7.7 [facility] Comment on above: Performed By: #### L 100.0100, L500.2500, L501.4021 ####[facility] [address] [place], [address] Basophils/100 WBC (Bld) 0.3 % Normal 0-1 [facility] Comment on above: Performed By: #### L 100.0100, L500.2500, L501.4021 ####[facility] [address] [place], [address] Eosinophils/100 WBC (Bld) 0.6 % Normal 0-5 [facility] Comment on above: Performed By: #### L 100.0100, L500.2500, L501.4021 ####[facility] [address] [place], [address] Erythrocyte distribution width (RBC) [Ratio] 13.4 % Normal 11.6-14.6 [facility] Comment on above: Performed By: #### L 100.0100, L500.2500, L501.4021 ####[facility] [address] [place], [address] Hematocrit (Bld) [Volume fraction] 39.1 % Low 40-54 [facility] Comment on above: Performed By: #### L 100.0100, L500.2500, L501.4021 ####[facility] [address] [place], [address] Hemoglobin (Bld) [Mass/Vol] 13.3 g/dL Normal 13.0-16.5 [facility] Comment on above: Performed By: #### L 100.0100, L500.2500, L501.4021 ####[facility] [address] [place], [address] IG% 0.700 Normal 0.0-0.9 [facility] Comment on above: Result Comment: IG% - Immature Granulocytes (promyelocytes, myelocytes andmetamyelocytes) > 1% indicates that a LEFT SHIFT is Present. Performed By: #### L 100.0100, L500.2500, L501.4021 ####[facility] [address] [place], [address] Lymphocytes/100 WBC (Bld) 7.9 % Low 19-41 [facility] Comment on above: Performed By: #### L 100.0100, L500.2500, L501.4021 ####[facility] [address] [place], [address] MCH (RBC) [Entitic mass] 29.3 pg Normal 27.0-32.0 [facility] Comment on above: Performed By: #### L 100.0100, L500.2500, L501.4021 ####[facility] [address] [place], [address] MCHC (RBC) [Mass/Vol] 34.0 g/dL Normal 32-36 [facility] Comment on above: Performed By: #### L 100.0100, L500.2500, L501.4021 ####[facility] [address] [place], [address] MCV (RBC) [Entitic vol] 86.1 fL Normal 80-94 [facility] Comment on above: Performed By: #### L 100.0100, L500.2500, L501.4021 ####[facility] [address] [place], [address] Monocytes/100 WBC (Bld) 11.5 % High 0-10 [facility] Comment on above: Performed By: #### L 100.0100, L500.2500, L501.4021 ####[facility] [address] [place], [address] Neutrophils/100 WBC (Bld) 79.0 % High 47-70 [facility] Comment on above: Performed By: #### L 100.0100, L500.2500, L501.4021 ####[facility] [address] [place], [address] Nucleated RBC (Bld) [#/Vol] 0 10*3/uL Normal 0-5 [facility] Comment on above: Performed By: #### L 100.0100, L500.2500, L501.4021 ####[facility] [address] [place], [address] Platelet mean volume (Bld) [Entitic vol] 13.0 fL High 6.2-12.0 [facility] Comment on above: Performed By: #### L 100.0100, L500.2500, L501.4021 ####[facility] [address] [place], [address] Platelets (Bld) [#/Vol] 190 10*3/uL Normal 150-450 [facility] Comment on above: Performed By: #### L 100.0100, L500.2500, L501.4021 ####[facility] [address] [place], [address] RBC (Bld) [#/Vol] 4.54 10*6/uL Low 4.6-6.2 [facility] Comment on above: Performed By: #### L 100.0100, L500.2500, L501.4021 ####[facility] [address] [place], [address] RDW SD 41.4 fl Normal 35.1-43.9 [facility] Comment on above: Performed By: #### L 100.0100, L500.2500, L501.4021 ####[facility] [address] [place], [address] WBC (Bld) [#/Vol] 11.9 10*3/uL High 4.4-11.0 [facility] Comment on above: Performed By: #### L 100.0100, L500.2500, L501.4021 ####[facility] [address] [place], [address] Absolute Neut Normal 2.0-7.7 [facility] Comment on above: Result Comment: Canc elled via OM: Order cancelled - Patient discharged Performed By: #### L 500.2500, L100.0100 ####[facility] [address] [place], [address] HCT Normal 40-54 [facility] Comment on above: Result Comment: Canc elled via OM: Order cancelled - Patient discharged Performed By: #### L 500.2500, L100.0100 ####[facility] [address] [place], [address] HGB Normal 13.0-16.5 [facility] Comment on above: Result Comment: Canc elled via OM: Order cancelled - Patient discharged Performed By: #### L 500.2500, L100.0100 ####[facility] [address] [place], [address] MCH Normal 27.0-32.0 [facility] Comment on above: Result Comment: Canc elled via OM: Order cancelled - Patient discharged Performed By: #### L 500.2500, L100.0100 ####[facility] [address] [place], [address] MCHC Normal 32-36 [facility] Comment on above: Result Comment: Canc elled via OM: Order cancelled - Patient discharged Performed By: #### L 500.2500, L100.0100 ####[facility] [address] [place], [address] MCV Normal 80-94 [facility] Comment on above: Result Comment: Canc elled via OM: Order cancelled - Patient discharged Performed By: #### L 500.2500, L100.0100 ####[facility] [address] [place], [address] NEUT% Normal 47-70 [facility] Comment on above: Result Comment: Canc elled via OM: Order cancelled - Patient discharged Performed By: #### L 500.2500, L100.0100 ####[facility] [address] [place], [address] PLT Normal 150-450 [facility] Comment on above: Result Comment: Canc elled via OM: Order cancelled - Patient discharged Performed By: #### L 500.2500, L100.0100 ####[facility] [address] [place], [address] RBC Normal 4.6-6.2 [facility] Comment on above: Result Comment: Canc elled via OM: Order cancelled - Patient discharged Performed By: #### L 500.2500, L100.0100 ####[facility] [address] [place], [address] RDW CV Normal 11.6-14.6 [facility] Comment on above: Result Comment: Canc elled via OM: Order cancelled - Patient discharged Performed By: #### L 500.2500, L100.0100 ####[facility] [address] [place], [address] RDW SD Normal 35.1-43.9 [facility] Comment on above: Result Comment: Canc elled via OM: Order cancelled - Patient discharged Performed By: #### L 500.2500, L100.0100 ####[facility] [address] [place], [address] WBC Normal 4.4-11.0 [facility] Comment on above: Result Comment: Canc elled via OM: Order cancelled - Patient discharged Performed By: #### L 500.2500, L100.0100 ####[facility] [address] [place], [address] Calculated very low density lipoprotein (VLDL) cholesterol measurementOrdered By: Boyd Rock on 12-07-2024 Calculated very low density lipoprotein (VLDL) cholesterol measurement 54 mg/dL High 5-40 [facility] Carbon dioxide, total [Moles /volume] in Central venous bloodOrdered By: Juli German on 12-07-2024 CO2 [Moles/Vol] 20.9 mmol/L Low 21.0-32.0 [facility] Carbon dioxide, total [Moles /volume] in Central venous bloodOrdered By: Boyd Rock on 12-07-2024 CO2 [Moles/Vol] 23.3 mmol/L 21.0-32.0 [facility] Chest PA and Lateralon 12-07 Chest PA and Lateral Normal [facility] Chloride assayOrdered By: Miri German on 12-07-2024 Chloride [Moles/Vol] 94 mmol/L Low 98-108 [facility] Chloride assayOrdered By: Susanna Rock on 12-07-2024 Chloride [Moles/Vol] 96 mmol/L Low 98-108 [facility] D-Dimer Quantitative (DVT/PE )on 12-07-2024 D-DIMER QUANT 1.61 FEU/ug/m Invalid Interpretation Code 0.27-0.49 [facility] Comment on above: Result Comment: D-Di ajit ELEVATED (>0.49): Additional studies and clinicalassessments are indicated to conclude diagnosis of:Deep Vein Thrombosis (DVT) or Pulmonary Embolism (PE)CRITICAL VALUE CALLED TO MARIA DEL ROSARIO JOHNSON (ER)12/07/24 1442 Michael Cherry.RESULTS READ BACK BY SAME. Performed By: #### L 300.8000 ####[facility] [address] [place], [address] Emergency Department Summary on 12-07-2024 Emergency Department Summary Normal [facility] Eosinophil percentageOrdered By: Juli German on 12-07-2024 Eosinophils/100 WBC (Bld) 0.6 % 0-5 [facility] Eosinophil percentageOrdered By: Boyd Rock on 12-07-2024 Eosinophils/100 WBC (Bld) 1.3 % 0-5 [facility] Erythrocyte distribution wid th ratioOrdered By: Juli German on 12-07-2024 Erythrocyte distribution width (RBC) [Ratio] 13.4 % 11.6-14.6 [facility] Erythrocyte distribution wid th ratioOrdered By: Boyd Rock on 12-07-2024 Erythrocyte distribution width (RBC) [Ratio] 13.6 % 11.6-14.6 [facility] Erythrocyte distribution wid th standard deviationOrdered By: Juli German on 12-07-2024 Erythrocyte distribution width (RBC) [Ratio] 41.4 fl 35.1-43.9 [facility] Erythrocyte distribution wid th standard deviationOrdered By: Boyd Rock on 12-07-2024 Erythrocyte distribution width (RBC) [Ratio] 43.8 fl 35.1-43.9 [facility] Glomerular filtration rate ( GFR) estimation/1.73 sq m using serum, plasma, or whole bOrdered By: Juli German on 12-07-2024 GFR/1.73 sq M.predicted among non-blacks MDRD (S/P/Bld) [Vol rate/Area] 23 mL/min/{1.73_m2} Low >60 [facility] Glomerular filtration rate ( GFR) estimation/1.73 sq m using serum, plasma, or whole bOrdered By: Boyd Rock on 12-07-2024 GFR/1.73 sq M.predicted among non-blacks MDRD (S/P/Bld) [Vol rate/Area] 25 mL/min/{1.73_m2} Low >60 [facility] H AND P Exam - Hospitaliston 12-07-2024 H&P Exam - Hospitalist Normal [facility] Hematocrit Auto (Bld) [Volum e fraction]Ordered By: Juli German on 12-07-2024 Hematocrit (Bld) [Volume fraction] 39.1 % Low 40-54 [facility] Hematocrit Auto (Bld) [Volum e fraction]Ordered By: Boyd Rock on 12-07-2024 Hematocrit (Bld) [Volume fraction] 37.8 % Low 40-54 [facility] Hemoglobin measurementOrdere d By: Juli German on 12-07-2024 Hemoglobin (Bld) [Mass/Vol] 13.3 g/dL 13.0-16.5 [facility] Hemoglobin measurementOrdere d By: Boyd Rock on 12-07-2024 Hemoglobin (Bld) [Mass/Vol] 12.4 g/dL Low 13.0-16.5 [facility] Immature granulocytes/100 WB C Auto (Bld)Ordered By: Juli German on 12-07-2024 Immature granulocytes/100 WBC (Bld) 0.700 % 0.0-0.9 [facility] Immature granulocytes/100 WB C Auto (Bld)Ordered By: Boyd Rock on 12-07-2024 Immature granulocytes/100 WBC (Bld) 0.600 % 0.0-0.9 [facility] L501.4021on 12-07-2024 Trop T High Sen 7122 ng/L Invalid Interpretation Code <=22 [facility] Comment on above: Result Comment: Crit ical Result(s) Called at 1153: by:?? MONICA RODRIGUEZ. Results read back by same. Performed By: #### L 100.0100, L500.2500, L501.4021 ####[facility] [address] [place], [address] LDL calc ser/plasOrdered By: Boyd Rock on 12-07-2024 Cholesterol in LDL [Mass/Vol] 65 mg/dL [facility] Lung Scan Vent/Perfon 2024 Lung Scan Vent/Perf Normal [facility] MCV (mean corpuscular volume ) determinationOrdered By: Juli German on 12-07-2024 MCV (RBC) [Entitic vol] 86.1 fL 80-94 [facility] MCV (mean corpuscular volume ) determinationOrdered By: Boyd Rock on 12-07-2024 MCV (RBC) [Entitic vol] 87.9 fL 80-94 [facility] Magnesiumon 12-07-2024 Magnesium [Mass/Vol] 2.4 mg/dL High 1.5-2.2 [facility] Comment on above: Performed By: #### L 501.5200 ####[facility] [address] [place], [place], [id number] Magnesium measurement (mass/ volume)Ordered By: Juli German on 12-07-2024 Magnesium (Unsp spec) [Mass/Vol] 2.4 mg/dL High 1.5-2.2 [facility] Mean corpuscular hemoglobin (MCH) determinationOrdered By: Juli German on 12-07-2024 MCH (RBC) [Entitic mass] 29.3 pg 27.0-32.0 [facility] Mean corpuscular hemoglobin (MCH) determinationOrdered By: Boyd Rock on 12-07-2024 MCH (RBC) [Entitic mass] 28.8 pg 27.0-32.0 [facility] Monocyte percentageOrdered B y: Juli German on 12-07-2024 Monocytes/100 WBC (Bld) 11.5 % High 0-10 [facility] Monocyte percentageOrdered B y: Boyd Rock on 12-07-2024 Monocytes/100 WBC (Bld) 11.7 % High 0-10 [facility] Natriuretic peptide.B prohor efrem N-Terminal [Mass/volume] in Serum or PlasmaOrdered By: Tor Irizarry on 12-07-2024 Natriuretic peptide.B prohormone N-Terminal [Mass/Vol] 2037 pg/mL High <1800 [facility] Neutrophil percentageOrdered By: Juli German on 12-07-2024 Neutrophils/100 WBC (Bld) 79.0 % High 47-70 [facility] Neutrophil percentageOrdered By: Boyd Rock on 12-07-2024 Neutrophils/100 WBC (Bld) 74.8 % High 47-70 [facility] No Panel InformationOrdered By: Boyd Rock on 12-07-2024 32 U/L <38 [facility] Platelet countOrdered By: Miri eGrman on 12-07-2024 Platelets (Bld) [#/Vol] 190 10*3/uL 150-450 [facility] Platelet countOrdered By: Susanna Rock on 12-07-2024 Platelets (Bld) [#/Vol] 169 10*3/uL 150-450 [facility] Potassium measurement (mass/ volume)Ordered By: Juli German on 12-07-2024 Potassium (Unsp spec) [Mass/Vol] 4.1 mmol/L 3.3-5.1 [facility] Potassium measurement (mass/ volume)Ordered By: Boyd Rock on 12-07-2024 Potassium (Unsp spec) [Mass/Vol] 3.5 mmol/L 3.3-5.1 [facility] Pro- Brain NATRIURETIC PEPTI Sharon 12-07-2024 Natriuretic peptide B (Bld) [Mass/Vol] 2037 pg/mL High <=1800 [facility] Comment on above: Result Comment: Hear t Failure Unlikely: < 300 pg/mLHeart Failure Likely< 50 Years: > 450 pg/mL50-75 Years: > 900 pg/mL>75 Years: > 1800 pg/mL Performed By: #### L 503.7505 ####[facility] [address] [place], [place], [address] RBC Auto (Bld) [#/Vol]Ordere d By: Juli German on 12-07-2024 RBC (Bld) [#/Vol] 4.54 10*6/uL Low 4.6-6.2 [facility] RBC Auto (Bld) [#/Vol]Ordere d By: Boyd Rock on 12-07-2024 RBC (Bld) [#/Vol] 4.30 10*6/uL Low 4.6-6.2 [facility] Serum creatinine measurement (mass/volume)Ordered By: Juli German on 12-07-2024 Creatinine [Mass/Vol] 2.76 mg/dL High 0.70-1.20 [facility] Serum creatinine measurement (mass/volume)Ordered By: Boyd Rock on 12-07-2024 Creatinine [Mass/Vol] 2.56 mg/dL High 0.70-1.20 [facility] Serum globulin measurementOr dered By: Boyd Rock on 12-07-2024 Globulin (S) [Mass/Vol] 3.5 g/dL 2.2-4.2 [facility] Serum glucose measurement (m ass/volume)Ordered By: Juli German on 12-07-2024 Glucose [Mass/Vol] 209 mg/dL High 70-99 [facility] Serum glucose measurement (m ass/volume)Ordered By: Boyd Rock on 12-07-2024 Glucose [Mass/Vol] 156 mg/dL High 70-99 [facility] Serum or plasma alanine guerrero otransferase (ALT) measurementOrdered By: Boyd Rock on 12-07-2024 ALT [Catalytic activity/Vol] 28 U/L <47 [facility] Serum or plasma albumin francine urement (mass/volume)Ordered By: Boyd Rock on 12-07-2024 Albumin [Mass/Vol] 4.1 g/dL 3.4-4.8 [facility] Serum or plasma albumin/glob ulin mass ratioOrdered By: Boyd Rock on 12-07-2024 Albumin/Globulin [Mass ratio] 1.2 {ratio} 0.9-2.4 [facility] Serum or plasma alkaline bell sphatase measurementOrdered By: Boyd Rock on 12-07-2024 ALP [Catalytic activity/Vol] 122 U/L 40-129 [facility] Serum or plasma calcium francine urement (mass/volume)Ordered By: Juli German on 12-07-2024 Calcium [Mass/Vol] 9.5 mg/dL 7.6-11.0 [facility] Serum or plasma calcium francine urement (mass/volume)Ordered By: Boyd Rock on 12-07-2024 Calcium [Mass/Vol] 9.4 mg/dL 7.6-11.0 [facility] Serum or plasma cholesterol in HDL measurement (mass/volume)Ordered By: Boyd Rock on 12-07-2024 Cholesterol in HDL [Mass/Vol] 36 mg/dL Low >40 [facility] Serum or plasma cholesterol measurement (mass/volume)Ordered By: Boyd Rock on 12-07-2024 Cholesterol [Mass/Vol] 154 mg/dL <201 [facility] Serum or plasma urea nitroge n measurement (mass/volume)Ordered By: Juli German on 12-07-2024 Urea nitrogen [Mass/Vol] 40 mg/dL High 4-19 [facility] Serum or plasma urea nitroge n measurement (mass/volume)Ordered By: Boyd Rock on 12-07-2024 Urea nitrogen [Mass/Vol] 39 mg/dL High 4-19 [facility] Sodium levelOrdered By: Juli German on 12-07-2024 Sodium [Moles/Vol] 132 mmol/L Low 133-145 [facility] Sodium levelOrdered By: Lupe Rock on 12-07-2024 Sodium [Moles/Vol] 135 mmol/L 133-145 [facility] TSH DL <= 0.005 mIU/L QnOrde red By: Boyd Rock on 12-07-2024 TSH Qn 9.200 uIU/mL High 0.300-4.20 0 [facility] Total proteinOrdered By: Anastacio Rock on 12-07-2024 Protein [Mass/Vol] 7.5 g/dL 5.9-8.4 [facility] Troponin T HS 2 HRon 025 Trop T High Sen 6442 ng/L Invalid Interpretation Code <=22 [facility] Comment on above: Result Comment: Crit ical Result(s) Called at 1336: by: MONICA PERALTA.??Results read back by same. Performed By: #### L 499.0042 ####[facility] [address] [place], [address] Troponin T HS 4 HRon 025 Trop T High Sen 6556 ng/L Invalid Interpretation Code <=22 [facility] Comment on above: Result Comment: Crit ical Result(s) Called at: 1740 by:??MOISE BERNSTEIN BILJAI Results read back by same. Performed By: #### L 499.0043 ####[facility] [address] [place], [place], [id number] Troponin T.cardiac [Mass/vol ume] in Serum or Plasma by High sensitivity methodOrdered By: Juli German on 12-07-2024 Troponin T.cardiac High sensitivity method [Mass/Vol] 6556 ng/L High <22 [facility] Troponin T.cardiac High sensitivity method [Mass/Vol] 6442 ng/L High <22 [facility] Troponin T.cardiac High sensitivity method [Mass/Vol] 7122 ng/L High <22 [facility] White blood cell (WBC) count Ordered By: Juli German on 12-07-2024 WBC (Bld) [#/Vol] 11.9 10*3/uL High 4.4-11.0 [facility] White blood cell (WBC) count Ordered By: Boyd Rock on 12-07-2024 WBC (Bld) [#/Vol] 10.5 10*3/uL 4.4-11.0 [facility] 12 Lead EKGon 12-06-2024 12 Lead EKG Normal [facility] Absolute lymphocyte countOrd ered By: Alex Sanon on 12-06-2024 Lymphocytes Auto (Unsp spec) [#/Vol] 1.09 10*3/uL 0.83-4.51 [facility] Anion gap in Serum or Plasma Ordered By: Marcin Araujo on 12-06-2024 Anion gap [Moles/Vol] 17 mmol/L High 5-15 [facility] Automated lymphocyte count a s percentage of total leukocytesOrdered By: Alex Sanon on 12-06-2024 Lymphocytes/100 WBC Auto (Unsp spec) 11.6 % Low 19-41 [facility] BUN/creatinine ratioOrdered By: Marcin Araujo on 12-06-2024 Urea nitrogen/Creatinine [Mass ratio] 16.1 mg/mg 10-20 [facility] Basic Metabolic Profile (BMP )on 12-06-2024 BUN/CRE 16.1 RATIO Normal 10-20 [facility] Comment on above: Performed By: #### L 500.2500 ####[facility] [address] [place], [address] Calcium [Mass/Vol] 9.2 mg/dL Normal 7.6-11.0 [facility] Comment on above: Performed By: #### L 500.2500 ####[facility] [address] [place], [address] Chloride [Moles/Vol] 96 mmol/L Low 98-108 [facility] Comment on above: Performed By: #### L 500.2500 ####[facility] [address] [place], [address] CO2 [Moles/Vol] 20.6 mmol/L Low 21.0-32.0 [facility] Comment on above: Performed By: #### L 500.2500 ####[facility] [address] [place], [address] Creatinine [Mass/Vol] 2.46 mg/dL High 0.70-1.20 [facility] Comment on above: Performed By: #### L 500.2500 ####[facility] [address] [place], [address] ECRCL 28.56 ml/min Low 50-250 [facility] Comment on above: Performed By: #### L 500.2500 ####[facility] [address] [place], [address] GAP 17 High 5-15 [facility] Comment on above: Performed By: #### L 500.2500 ####[facility] [address] [place], [address] GFR/1.73 sq M.predicted among non-blacks MDRD (S/P/Bld) [Vol rate/Area] 26 mL/min/{1.73_m2} Low >60 [facility] Comment on above: Result Comment: mL/m in/1.73m2 CKD-EPI Creatinine Equation (2020) Performed By: #### L 500.2500 ####[facility] [address] [place], [address] Glucose [Mass/Vol] 186 mg/dL High 70-99 [facility] Comment on above: Performed By: #### L 500.2500 ####[facility] [address] [place], [address] Potassium [Moles/Vol] 4.1 mmol/L Normal 3.3-5.1 [facility] Comment on above: Performed By: #### L 500.2500 ####[facility] [address] [place] [place], [address] Sodium [Moles/Vol] 133 mmol/L Normal 133-145 [facility] Comment on above: Performed By: #### L 500.2500 ####[facility] [address] [place] [place], [address] Urea nitrogen [Mass/Vol] 40 mg/dL High 4-19 [facility] Comment on above: Performed By: #### L 500.2500 ####[facility] [address] [place] [place], [address] BUN/CRE 17.0 RATIO Normal 10-20 [facility] Comment on above: Performed By: #### L 100.0100, L500.2500, L501.2300, L501.5200 ####[facility] [address] [place], [address] Calcium [Mass/Vol] 9.0 mg/dL Normal 7.6-11.0 [facility] Comment on above: Performed By: #### L 100.0100, L500.2500, L501.2300, L501.5200 ####[facility] [address] [place], [address] Chloride [Moles/Vol] 97 mmol/L Low 98-108 [facility] Comment on above: Performed By: #### L 100.0100, L500.2500, L501.2300, L501.5200 ####[facility] [address] [place], [address] CO2 [Moles/Vol] 21.9 mmol/L Normal 21.0-32.0 [facility] Comment on above: Performed By: #### L 100.0100, L500.2500, L501.2300, L501.5200 ####[facility] [address] [place], [address] Creatinine [Mass/Vol] 2.53 mg/dL High 0.70-1.20 [facility] Comment on above: Performed By: #### L 100.0100, L500.2500, L501.2300, L501.5200 ####[facility] [address] [place], [address] ECRCL 1.34 ml/min Invalid Interpretation Code 50-250 [facility] Comment on above: Performed By: #### L 100.0100, L500.2500, L501.2300, L501.5200 ####[facility] [address] [place], [address] GAP 17 High 5-15 [facility] Comment on above: Performed By: #### L 100.0100, L500.2500, L501.2300, L501.5200 ####[facility] [address] [place], [address] GFR/1.73 sq M.predicted among non-blacks MDRD (S/P/Bld) [Vol rate/Area] 25 mL/min/{1.73_m2} Low >60 [facility] Comment on above: Result Comment: mL/m in/1.73m2 CKD-EPI Creatinine Equation (2020) Performed By: #### L 100.0100, L500.2500, L501.2300, L501.5200 ####[facility] [address] [place], [address] Glucose [Mass/Vol] 161 mg/dL High 70-99 [facility] Comment on above: Performed By: #### L 100.0100, L500.2500, L501.2300, L501.5200 ####[facility] [address] [place], [address] Potassium [Moles/Vol] 3.5 mmol/L Normal 3.3-5.1 [facility] Comment on above: Performed By: #### L 100.0100, L500.2500, L501.2300, L501.5200 ####[facility] [address] [place], [address] Sodium [Moles/Vol] 135 mmol/L Normal 133-145 [facility] Comment on above: Performed By: #### L 100.0100, L500.2500, L501.2300, L501.5200 ####[facility] [address] [place], [address] Urea nitrogen [Mass/Vol] 43 mg/dL High 4-19 [facility] Comment on above: Performed By: #### L 100.0100, L500.2500, L501.2300, L501.5200 ####[facility] [address] [place], [address] Basophil percentageOrdered B y: Alex Sanon on 12-06-2024 Basophils/100 WBC (Bld) 0.2 % 0-1 [facility] Bedside Glucoseon 12-06-2024 FINGERSTICK GLU 197 mg/dL High 74-106 [facility] Comment on above: Result Comment: WILDA GEMENT OF PATIENT CARE PER NURSING PROTOCOL Performed By: #### L 501.080 ####[facility] [address] [place], [address] FINGERSTICK GLU 165 mg/dL High 74-106 [facility] Comment on above: Result Comment: WILDA GEMENT OF PATIENT CARE PER NURSING PROTOCOL Performed By: #### L 501.080 ####[facility] [address] [place], [address] CBC W/Diff, Automatedon Absolute Lymph 1.09 X10 3/uL Normal 0.83-4.51 [facility] Comment on above: Performed By: #### L 100.0100, L500.2500, L501.2300, L501.5200 ####[facility] [address] [place], [address] Absolute Neut 6.8 X10 3/uL Normal 2.0-7.7 [facility] Comment on above: Performed By: #### L 100.0100, L500.2500, L501.2300, L501.5200 ####[facility] [address] [place], [address] Basophils/100 WBC (Bld) 0.2 % Normal 0-1 [facility] Comment on above: Performed By: #### L 100.0100, L500.2500, L501.2300, L501.5200 ####[facility] [address] [place], [address] Eosinophils/100 WBC (Bld) 2.0 % Normal 0-5 [facility] Comment on above: Performed By: #### L 100.0100, L500.2500, L501.2300, L501.5200 ####[facility] [address] [place], [address] Erythrocyte distribution width (RBC) [Ratio] 13.6 % Normal 11.6-14.6 [facility] Comment on above: Performed By: #### L 100.0100, L500.2500, L501.2300, L501.5200 ####[facility] [address] [place], [address] Hematocrit (Bld) [Volume fraction] 35.0 % Low 40-54 [facility] Comment on above: Performed By: #### L 100.0100, L500.2500, L501.2300, L501.5200 ####[facility] [address] [place], [address] Hemoglobin (Bld) [Mass/Vol] 11.6 g/dL Low 13.0-16.5 [facility] Comment on above: Performed By: #### L 100.0100, L500.2500, L501.2300, L501.5200 ####[facility] [address] [place], [address] IG% 0.600 Normal 0.0-0.9 [facility] Comment on above: Result Comment: IG% - Immature Granulocytes (promyelocytes, myelocytes andmetamyelocytes) > 1% indicates that a LEFT SHIFT is Present. Performed By: #### L 100.0100, L500.2500, L501.2300, L501.5200 ####[facility] [address] [place], [address] Lymphocytes/100 WBC (Bld) 11.6 % Low 19-41 [facility] Comment on above: Performed By: #### L 100.0100, L500.2500, L501.2300, L501.5200 ####[facility] [address] [place], [address] MCH (RBC) [Entitic mass] 29.1 pg Normal 27.0-32.0 [facility] Comment on above: Performed By: #### L 100.0100, L500.2500, L501.2300, L501.5200 ####[facility] [address] [place], [address] MCHC (RBC) [Mass/Vol] 33.1 g/dL Normal 32-36 [facility] Comment on above: Performed By: #### L 100.0100, L500.2500, L501.2300, L501.5200 ####[facility] [address] [place], [address] MCV (RBC) [Entitic vol] 87.9 fL Normal 80-94 [facility] Comment on above: Performed By: #### L 100.0100, L500.2500, L501.2300, L501.5200 ####[facility] [address] [place], [address] Monocytes/100 WBC (Bld) 12.9 % High 0-10 [facility] Comment on above: Performed By: #### L 100.0100, L500.2500, L501.2300, L501.5200 ####[facility] [address] [place], [address] Neutrophils/100 WBC (Bld) 72.7 % High 47-70 [facility] Comment on above: Performed By: #### L 100.0100, L500.2500, L501.2300, L501.5200 ####[facility] [address] [place], [address] Nucleated RBC (Bld) [#/Vol] 0 10*3/uL Normal 0-5 [facility] Comment on above: Performed By: #### L 100.0100, L500.2500, L501.2300, L501.5200 ####[facility] [address] [place], [address] Platelet mean volume (Bld) [Entitic vol] 12.9 fL High 6.2-12.0 [facility] Comment on above: Performed By: #### L 100.0100, L500.2500, L501.2300, L501.5200 ####[facility] [address] [place], [address] Platelets (Bld) [#/Vol] 140 10*3/uL Low 150-450 [facility] Comment on above: Performed By: #### L 100.0100, L500.2500, L501.2300, L501.5200 ####[facility] [address] [place], [address] RBC (Bld) [#/Vol] 3.98 10*6/uL Low 4.6-6.2 [facility] Comment on above: Performed By: #### L 100.0100, L500.2500, L501.2300, L501.5200 ####[facility] [address] [place], [address] RDW SD 44.0 fl High 35.1-43.9 [facility] Comment on above: Performed By: #### L 100.0100, L500.2500, L501.2300, L501.5200 ####[facility] [address] [place], [address] WBC (Bld) [#/Vol] 9.4 10*3/uL Normal 4.4-11.0 [facility] Comment on above: Performed By: #### L 100.0100, L500.2500, L501.2300, L501.5200 ####[facility] [address] [place], [address] Carbon dioxide, total [Moles /volume] in Central venous bloodOrdered By: Marcin Araujo on 12-06-2024 CO2 [Moles/Vol] 20.6 mmol/L Low 21.0-32.0 [facility] Chloride assayOrdered By: Russell Araujo on 12-06-2024 Chloride [Moles/Vol] 96 mmol/L Low 98-108 [facility] Electrocardiogram reportOrde red By: Marcin Araujo on 12-06-2024 EKG study [facility] Work Phone: [phone] EKG study [facility] Work Phone: [phone] Eosinophil percentageOrdered By: Alex Sanon on 12-06-2024 Eosinophils/100 WBC (Bld) 2.0 % 0-5 [facility] Erythrocyte distribution wid th ratioOrdered By: Alex Sanon on 12-06-2024 Erythrocyte distribution width (RBC) [Ratio] 13.6 % 11.6-14.6 [facility] Erythrocyte distribution wid th standard deviationOrdered By: Alex Sanon on 12-06-2024 Erythrocyte distribution width (RBC) [Ratio] 44.0 fl High 35.1-43.9 [facility] Glomerular filtration rate ( GFR) estimation/1.73 sq m using serum, plasma, or whole bOrdered By: Marcin Araujo on 12-06-2024 GFR/1.73 sq M.predicted among non-blacks MDRD (S/P/Bld) [Vol rate/Area] 26 mL/min/{1.73_m2} Low >60 [facility] deOrdered By: Alex Sanon on 12-06-2024 Glucose [Mass/Vol] 197 mg/dL High 74-106 [facility] Hematocrit Auto (Bld) [Volum e fraction]Ordered By: Alex Sanon on 12-06-2024 Hematocrit (Bld) [Volume fraction] 35.0 % Low 40-54 [facility] Hemoglobin measurementOrdere d By: Alex Sanon on 12-06-2024 Hemoglobin (Bld) [Mass/Vol] 11.6 g/dL Low 13.0-16.5 [facility] Immature granulocytes/100 WB C Auto (Bld)Ordered By: Alex Sanon on 12-06-2024 Immature granulocytes/100 WBC (Bld) 0.600 % 0.0-0.9 [facility] MCV (mean corpuscular volume ) determinationOrdered By: Alex Sanon on 12-06-2024 MCV (RBC) [Entitic vol] 87.9 fL 80-94 [facility] Magnesiumon 12-06-2024 Magnesium [Mass/Vol] 2.4 mg/dL High 1.5-2.2 [facility] Comment on above: Performed By: #### L 100.0100, L500.2500, L501.2300, L501.5200 ####[facility] [address] [place], [address] Magnesium measurement (mass/ volume)Ordered By: Alex Sanon on 12-06-2024 Magnesium (Unsp spec) [Mass/Vol] 2.4 mg/dL High 1.5-2.2 [facility] Mean corpuscular hemoglobin (MCH) determinationOrdered By: Alex Sanon on 12-06-2024 MCH (RBC) [Entitic mass] 29.1 pg 27.0-32.0 [facility] Monocyte percentageOrdered B y: Alex Sanon on 12-06-2024 Monocytes/100 WBC (Bld) 12.9 % High 0-10 [facility] Neutrophil percentageOrdered By: Alex Sanon on 12-06-2024 Neutrophils/100 WBC (Bld) 72.7 % High 47-70 [facility] Phosphoruson 12-06-2024 Phosphate [Mass/Vol] 2.9 mg/dL Normal 2.7-4.5 [facility] Comment on above: Performed By: #### L 100.0100, L500.2500, L501.2300, L501.5200 ####[facility] [address] [place], [place], [address] Platelet countOrdered By: Danis Sanon on 12-06-2024 Platelets (Bld) [#/Vol] 140 10*3/uL Low 150-450 [facility] Potassium measurement (mass/ volume)Ordered By: Marcin Araujo on 12-06-2024 Potassium (Unsp spec) [Mass/Vol] 4.1 mmol/L 3.3-5.1 [facility] RBC Auto (Bld) [#/Vol]Ordere d By: Alex Sanon on 12-06-2024 RBC (Bld) [#/Vol] 3.98 10*6/uL Low 4.6-6.2 [facility] Serum creatinine measurement (mass/volume)Ordered By: Marcin Araujo on 12-06-2024 Creatinine [Mass/Vol] 2.46 mg/dL High 0.70-1.20 [facility] Serum glucose measurement (m ass/volume)Ordered By: Marcin Araujo on 12-06-2024 Glucose [Mass/Vol] 186 mg/dL High 70-99 [facility] Serum or plasma calcium francine urement (mass/volume)Ordered By: Marcin Araujo on 12-06-2024 Calcium [Mass/Vol] 9.2 mg/dL 7.6-11.0 [facility] Serum or plasma urea nitroge n measurement (mass/volume)Ordered By: Marcin Araujo on 12-06-2024 Urea nitrogen [Mass/Vol] 40 mg/dL High 4-19 [facility] Sodium levelOrdered By: Madeline Araujo on 12-06-2024 Sodium [Moles/Vol] 133 mmol/L 133-145 [facility] White blood cell (WBC) count Ordered By: Alex Sanon on 12-06-2024 WBC (Bld) [#/Vol] 9.4 10*3/uL 4.4-11.0 [facility] Anion gap in Serum or Plasma Ordered By: Abraham Ridley on 12-05-2024 Anion gap [Moles/Vol] 19 mmol/L High 5-15 [facility] BUN/creatinine ratioOrdered By: Abraham Ridley on 12-05-2024 Urea nitrogen/Creatinine [Mass ratio] 18.2 mg/mg 10- [facility] Basic Metabolic Profile (BMP )on 12-05-2024 BUN/CRE 18.2 RATIO Normal 02-19 [facility] Comment on above: Performed By: #### L 500.2500 ####[facility] [address] [place], [address] Calcium [Mass/Vol] 9.1 mg/dL Normal 7.6-11.0 [facility] Comment on above: Performed By: #### L 500.2500 ####[facility] [address] [place], [address] Chloride [Moles/Vol] 96 mmol/L Low 98-108 [facility] Comment on above: Performed By: #### L 500.2500 ####[facility] [address] [place], [address] CO2 [Moles/Vol] 22.4 mmol/L Normal 21.0-32.0 [facility] Comment on above: Performed By: #### L 500.2500 ####[facility] [address] [place], [address] Creatinine [Mass/Vol] 2.57 mg/dL High 0.70-1.20 [facility] Comment on above: Performed By: #### L 500.2500 ####[facility] [address] [place], [address] ECRCL 27.41 ml/min Low 50-250 [facility] Comment on above: Performed By: #### L 500.2500 ####[facility] [address] [place], [address] GAP 19 High 5-15 [facility] Comment on above: Performed By: #### L 500.2500 ####[facility] [address] [place], [address] GFR/1.73 sq M.predicted among non-blacks MDRD (S/P/Bld) [Vol rate/Area] 25 mL/min/{1.73_m2} Low >60 [facility] Comment on above: Result Comment: mL/m in/1.73m2 CKD-EPI Creatinine Equation (2020) Performed By: #### L 500.2500 ####[facility] [address] [place], [address] Glucose [Mass/Vol] 155 mg/dL High 70-99 [facility] Comment on above: Performed By: #### L 500.2500 ####[facility] [address] [place], [address] Potassium [Moles/Vol] 3.2 mmol/L Low 3.3-5.1 [facility] Comment on above: Performed By: #### L 500.2500 ####[facility] [address] [place], [address] Sodium [Moles/Vol] 137 mmol/L Normal 133-145 [facility] Comment on above: Performed By: #### L 500.2500 ####[facility] [address] [place], [address] Urea nitrogen [Mass/Vol] 47 mg/dL High 4-19 [facility] Comment on above: Performed By: #### L 500.2500 ####[facility] [address] [place], [address] Bedside Glucoseon 12-05-2024 FINGERSTICK GLU 196 mg/dL High 74-106 [facility] Comment on above: Result Comment: WILDA GEMENT OF PATIENT CARE PER NURSING PROTOCOL Performed By: #### L 501.080 ####[facility] [address] [facility] [address] FINGERSTICK GLU 183 mg/dL High 74-106 [facility] Comment on above: Result Comment: WILDA GEMENT OF PATIENT CARE PER NURSING PROTOCOL Performed By: #### L 501.080 ####[facility] [address] [place], [address] FINGERSTICK GLU 194 mg/dL High [facility]106 [facility] Comment on above: Result Comment: WILDA GEMENT OF PATIENT CARE PER NURSING PROTOCOL Performed By: #### L 501.080 ####[facility] [address] [facility] [address] FINGERSTICK GLU 190 mg/dL High -106 [facility] Comment on above: Result Comment: WILDA GEMENT OF PATIENT CARE PER NURSING PROTOCOL Performed By: #### L 501.080 ####[facility] [address] [place], [address] Carbon dioxide, total [Moles /volume] in Central venous bloodOrdered By: Abraham Ridley on 12-05-2024 CO2 [Moles/Vol] 22.4 mmol/L 21.0-32.0 [facility] Chloride assayOrdered By: Jaylen Ridley on 12-05-2024 Chloride [Moles/Vol] 96 mmol/L Low 98-108 [facility] Glomerular filtration rate ( GFR) estimation/1.73 sq m using serum, plasma, or whole bOrdered By: Abraham Ridley on 12-05-2024 GFR/1.73 sq M.predicted among non-blacks MDRD (S/P/Bld) [Vol rate/Area] 25 mL/min/{1.73_m2} Low >60 [facility] deOrdered By: Abraham Ridley on 12-05-2024 Glucose [Mass/Vol] 190 mg/dL High 74-106 [facility] Potassium measurement (mass/ volume)Ordered By: Abraham Ridley on 12-05-2024 Potassium (Unsp spec) [Mass/Vol] 3.2 mmol/L Low 3.3-5.1 [facility] Serum creatinine measurement (mass/volume)Ordered By: Abraham Ridley on 12-05-2024 Creatinine [Mass/Vol] 2.57 mg/dL High 0.70-1.20 [facility] Serum glucose measurement (m ass/volume)Ordered By: Abraham Ridley on 12-05-2024 Glucose [Mass/Vol] 155 mg/dL High 70-99 [facility] Serum or plasma calcium francine urement (mass/volume)Ordered By: Abraham Ridley on 12-05-2024 Calcium [Mass/Vol] 9.1 mg/dL 7.6-11.0 [facility] Serum or plasma urea nitroge n measurement (mass/volume)Ordered By: Abraham Ridley on 12-05-2024 Urea nitrogen [Mass/Vol] 47 mg/dL High 4-19 [facility] Sodium levelOrdered By: Isael Ridley on 12-05-2024 Sodium [Moles/Vol] 137 mmol/L 133-145 [facility] 12 Lead EKGon 12-04-2024 12 Lead EKG Normal [facility] Absolute lymphocyte countOrd ered By: Ramonita Herron on 12-04-2024 Lymphocytes Auto (Unsp spec) [#/Vol] 1.07 10*3/uL 0.83-4.51 [facility] Automated lymphocyte count a s percentage of total leukocytesOrdered By: Ramonita Herron on 12-04-2024 Lymphocytes/100 WBC Auto (Unsp spec) 11.1 % Low 19-41 [facility] Basic Metabolic Profile (BMP )on 12-04-2024 BUN/CRE 19.4 RATIO Normal 10-20 [facility] Comment on above: Performed By: #### L 100.0100, L500.2500 ####[facility] [address] [place], [address] Calcium [Mass/Vol] 9.2 mg/dL Normal 7.6-11.0 [facility] Comment on above: Performed By: #### L 100.0100, L500.2500 ####[facility] [address] [place], [address] Chloride [Moles/Vol] 96 mmol/L Low 98-108 [facility] Comment on above: Performed By: #### L 100.0100, L500.2500 ####[facility] [address] [place], [address] CO2 [Moles/Vol] 21.4 mmol/L Normal 21.0-32.0 [facility] Comment on above: Performed By: #### L 100.0100, L500.2500 ####[facility] [address] [place], [address] Creatinine [Mass/Vol] 2.53 mg/dL High 0.70-1.20 [facility] Comment on above: Performed By: #### L 100.0100, L500.2500 ####[facility] [address] [place], [address] ECRCL 28.47 ml/min Low 50-250 [facility] Comment on above: Performed By: #### L 100.0100, L500.2500 ####[facility] [address] [place], [address] GAP 19 High 5-15 [facility] Comment on above: Performed By: #### L 100.0100, L500.2500 ####[facility] [address] [place], [address] GFR/1.73 sq M.predicted among non-blacks MDRD (S/P/Bld) [Vol rate/Area] 25 mL/min/{1.73_m2} Low >60 [facility] Comment on above: Result Comment: mL/m in/1.73m2 CKD-EPI Creatinine Equation (2020) Performed By: #### L 100.0100, L500.2500 ####[facility] [address] [place], [address] Glucose [Mass/Vol] 140 mg/dL High 70-99 [facility] Comment on above: Performed By: #### L 100.0100, L500.2500 ####[facility] [address] [place], [address] Potassium [Moles/Vol] 3.1 mmol/L Low 3.3-5.1 [facility] Comment on above: Performed By: #### L 100.0100, L500.2500 ####[facility] [address] [place], [address] Sodium [Moles/Vol] 137 mmol/L Normal 133-145 [facility] Comment on above: Performed By: #### L 100.0100, L500.2500 ####[facility] [address] [place], [address] Urea nitrogen [Mass/Vol] 49 mg/dL High 4-19 [facility] Comment on above: Performed By: #### L 100.0100, L500.2500 ####[facility] [address] [place], [address] Basophil percentageOrdered B y: Ramonita Herron on 12-04-2024 Basophils/100 WBC (Bld) 0.3 % 0-1 [facility] Bedside Glucoseon 12-04-2024 FINGERSTICK GLU 151 mg/dL High 74-106 [facility] Comment on above: Result Comment: WILDA BARROSO OF PATIENT CARE PER NURSING PROTOCOL Performed By: #### L 501.080 ####[facility] [address] [place], [address] FINGERSTICK GLU 147 mg/dL High 74-106 [facility] Comment on above: Result Comment: WILDA GEMENT OF PATIENT CARE PER NURSING PROTOCOL Performed By: #### L 501.080 ####[facility] [address] [place], [address] FINGERSTICK GLU 207 mg/dL High 74-106 [facility] Comment on above: Result Comment: WILDA GEMENT OF PATIENT CARE PER NURSING PROTOCOL Performed By: #### L 501.080 ####[facility] [address] [place], [address] FINGERSTICK GLU 147 mg/dL High 74-106 [facility] Comment on above: Result Comment: WILDA GEMENT OF PATIENT CARE PER NURSING PROTOCOL Performed By: #### L 501.080 ####[facility] [address] [place], [address] CBC W/Diff, Automatedon 08-0 4-2024 Absolute Lymph 1.07 X10 3/uL Normal 0.83-4.51 [facility] Comment on above: Performed By: #### L 100.0100, L500.2500 ####[facility] [address] [place], [address] Absolute Neut 7.1 X10 3/uL Normal 2.0-7.7 [facility] Comment on above: Performed By: #### L 100.0100, L500.2500 ####[facility] [address] [place], [address] Basophils/100 WBC (Bld) 0.3 % Normal 0-1 [facility] Comment on above: Performed By: #### L 100.0100, L500.2500 ####[facility] [address] [place], [address] Eosinophils/100 WBC (Bld) 2.2 % Normal 0-5 [facility] Comment on above: Performed By: #### L 100.0100, L500.2500 ####[facility] [address] [place], [address] Erythrocyte distribution width (RBC) [Ratio] 13.7 % Normal 11.6-14.6 [facility] Comment on above: Performed By: #### L 100.0100, L500.2500 ####[facility] [address] [place], [address] Hematocrit (Bld) [Volume fraction] 31.5 % Low 40-54 [facility] Comment on above: Performed By: #### L 100.0100, L500.2500 ####[facility] [address] [place], [address] Hemoglobin (Bld) [Mass/Vol] 10.5 g/dL Low 13.0-16.5 [facility] Comment on above: Performed By: #### L 100.0100, L500.2500 ####[facility] [address] [place], [address] IG% 0.600 Normal 0.0-0.9 [facility] Comment on above: Result Comment: IG% - Immature Granulocytes (promyelocytes, myelocytes andmetamyelocytes) > 1% indicates that a LEFT SHIFT is Present. Performed By: #### L 100.0100, L500.2500 ####[facility] [address] [place], [address] Lymphocytes/100 WBC (Bld) 11.1 % Low 19-41 [facility] Comment on above: Performed By: #### L 100.0100, L500.2500 ####[facility] [address] [place], [address] MCH (RBC) [Entitic mass] 29.2 pg Normal 27.0-32.0 [facility] Comment on above: Performed By: #### L 100.0100, L500.2500 ####[facility] [address] [place], [address] MCHC (RBC) [Mass/Vol] 33.3 g/dL Normal 32-36 [facility] Comment on above: Performed By: #### L 100.0100, L500.2500 ####[facility] [address] [place], [address] MCV (RBC) [Entitic vol] 87.7 fL Normal 80-94 [facility] Comment on above: Performed By: #### L 100.0100, L500.2500 ####[facility] [address] [place], [address] Monocytes/100 WBC (Bld) 11.9 % High 0-10 [facility] Comment on above: Performed By: #### L 100.0100, L500.2500 ####[facility] [address] [place], [address] Neutrophils/100 WBC (Bld) 73.9 % High 47-70 [facility] Comment on above: Performed By: #### L 100.0100, L500.2500 ####[facility] [address] [place], [address] Nucleated RBC (Bld) [#/Vol] 0 10*3/uL Normal 0-5 [facility] Comment on above: Performed By: #### L 100.0100, L500.2500 ####[facility] [address] [place], [address] Platelet mean volume (Bld) [Entitic vol] 13.7 fL High 6.2-12.0 [facility] Comment on above: Performed By: #### L 100.0100, L500.2500 ####[facility] [address] [place], [address] Platelets (Bld) [#/Vol] 126 10*3/uL Low 150-450 [facility] Comment on above: Performed By: #### L 100.0100, L500.2500 ####[facility] [address] [place], [address] RBC (Bld) [#/Vol] 3.59 10*6/uL Low 4.6-6.2 [facility] Comment on above: Performed By: #### L 100.0100, L500.2500 ####[facility] [address] [place], [address] RDW SD 43.8 fl Normal 35.1-43.9 [facility] Comment on above: Performed By: #### L 100.0100, L500.2500 ####[facility] [address] [place], [address] WBC (Bld) [#/Vol] 9.7 10*3/uL Normal 4.4-11.0 [facility] Comment on above: Performed By: #### L 100.0100, L500.2500 ####[facility] [address] [place], [address] Cardiac catheterization repo rtOrdered By: Marcin Araujo on 12-04-2024 Cardiac catheterization study [facility] Work Phone: [phone] Electrocardiogram reportOrde red By: Marcin Araujo on 12-04-2024 EKG study [facility] Work Phone: [phone] Eosinophil percentageOrdered By: Ramonita Herron on 12-04-2024 Eosinophils/100 WBC (Bld) 2.2 % 0-5 [facility] Erythrocyte distribution wid th ratioOrdered By: Ramonita Herron on 12-04-2024 Erythrocyte distribution width (RBC) [Ratio] 13.7 % 11.6-14.6 [facility] Erythrocyte distribution wid th standard deviationOrdered By: Ramonita Herron on 12-04-2024 Erythrocyte distribution width (RBC) [Ratio] 43.8 fl 35.1-43.9 [facility] Hematocrit Auto (Bld) [Volum e fraction]Ordered By: Ramonita Herron on 12-04-2024 Hematocrit (Bld) [Volume fraction] 31.5 % Low 40-54 [facility] Hemoglobin measurementOrdere d By: Ramonita Herron on 12-04-2024 Hemoglobin (Bld) [Mass/Vol] 10.5 g/dL Low 13.0-16.5 [facility] Immature granulocytes/100 WB C Auto (Bld)Ordered By: Ramonita Herron on 12-04-2024 Immature granulocytes/100 WBC (Bld) 0.600 % 0.0-0.9 [facility] MCV (mean corpuscular volume ) determinationOrdered By: Ramonita Herron on 12-04-2024 MCV (RBC) [Entitic vol] 87.7 fL 80-94 [facility] Mean corpuscular hemoglobin (MCH) determinationOrdered By: Ramonita Herron on 12-04-2024 MCH (RBC) [Entitic mass] 29.2 pg 27.0-32.0 [facility] Monocyte percentageOrdered B y: Ramonita Herron on 12-04-2024 Monocytes/100 WBC (Bld) 11.9 % High 0-10 [facility] Neutrophil percentageOrdered By: Ramonita Herrno on 12-04-2024 Neutrophils/100 WBC (Bld) 73.9 % High 47-70 [facility] Platelet countOrdered By: Parish Herron on 12-04-2024 Platelets (Bld) [#/Vol] 126 10*3/uL Low 150-450 [facility] RBC Auto (Bld) [#/Vol]Ordere d By: Ramonita Herron on 12-04-2024 RBC (Bld) [#/Vol] 3.59 10*6/uL Low 4.6-6.2 [facility] White blood cell (WBC) count Ordered By: Ramonita Herron on 12-04-2024 WBC (Bld) [#/Vol] 9.7 10*3/uL 4.4-11.0 [facility] 12 Lead EKGon 12-03-2024 12 Lead EKG Normal [facility] Bedside Glucoseon 12-03-2024 FINGERSTICK GLU 153 mg/dL High 74-106 [facility] Comment on above: Result Comment: WILDA BARROSO OF PATIENT CARE PER NURSING PROTOCOL Performed By: #### L 501.080 ####[facility] [address] [place], [address] FINGERSTICK GLU 156 mg/dL High 74-106 [facility] Comment on above: Result Comment: WILDA GEMENT OF PATIENT CARE PER NURSING PROTOCOL Performed By: #### L 501.080 ####[facility] [address] [place], [address] FINGERSTICK GLU 226 mg/dL High 74-106 [facility] Comment on above: Result Comment: WILDA GEMENT OF PATIENT CARE PER NURSING PROTOCOL Performed By: #### L 501.080 ####[facility] [address] [place], [address] FINGERSTICK GLU 140 mg/dL High -106 [facility] Comment on above: Result Comment: WILDA GEMENT OF PATIENT CARE PER NURSING PROTOCOL Performed By: #### L 501.080 ####[facility] [address] [place], [address] FINGERSTICK GLU 200 mg/dL High -106 [facility] Comment on above: Result Comment: WILDA GEMENT OF PATIENT CARE PER NURSING PROTOCOL Performed By: #### L 501.080 ####[facility] [address] [place], [address] Bilirubin Test strip Ql (U)O rdered By: Alex Resendez on 12-03-2024 Bilirubin Ql (U) Negative Negative [facility] Bilirubin, totalOrdered By: Alex Resendez on 12-03-2024 Bilirubin [Mass/Vol] 1.27 mg/dL 0.00-1.30 [facility] CBC W/Diff, Automatedon 080 Absolute Lymph 0.95 X10 3/uL Normal 0.83-4.51 [facility] Comment on above: Performed By: #### L 100.0100, L500.4050, L501.2300, L501.5200 ####[facility] [address] [place], [address] Absolute Neut 6.9 X10 3/uL Normal 2.0-7.7 [facility] Comment on above: Performed By: #### L 100.0100, L500.4050, L501.2300, L501.5200 ####[facility] [address] [place], [address] Basophils/100 WBC (Bld) 0.2 % Normal 0-1 [facility] Comment on above: Performed By: #### L 100.0100, L500.4050, L501.2300, L501.5200 ####[facility] [address] [place], [address] Eosinophils/100 WBC (Bld) 1.8 % Normal 0-5 [facility] Comment on above: Performed By: #### L 100.0100, L500.4050, L501.2300, L501.5200 ####[facility] [address] [place], [address] Erythrocyte distribution width (RBC) [Ratio] 14.2 % Normal 11.6-14.6 [facility] Comment on above: Performed By: #### L 100.0100, L500.4050, L501.2300, L501.5200 ####[facility] [address] [place], [address] Hematocrit (Bld) [Volume fraction] 31.8 % Low 40-54 [facility] Comment on above: Performed By: #### L 100.0100, L500.4050, L501.2300, L501.5200 ####[facility] [address] [place], [address] Hemoglobin (Bld) [Mass/Vol] 10.3 g/dL Low 13.0-16.5 [facility] Comment on above: Performed By: #### L 100.0100, L500.4050, L501.2300, L501.5200 ####[facility] [address] [place], [address] IG% 0.600 Normal 0.0-0.9 [facility] Comment on above: Result Comment: IG% - Immature Granulocytes (promyelocytes, myelocytes andmetamyelocytes) > 1% indicates that a LEFT SHIFT is Present. Performed By: #### L 100.0100, L500.4050, L501.2300, L501.5200 ####[facility] [address] [place], [address] Lymphocytes/100 WBC (Bld) 10.5 % Low 19-41 [facility] Comment on above: Performed By: #### L 100.0100, L500.4050, L501.2300, L501.5200 ####[facility] [address] [place], [address] MCH (RBC) [Entitic mass] 29.3 pg Normal 27.0-32.0 [facility] Comment on above: Performed By: #### L 100.0100, L500.4050, L501.2300, L501.5200 ####[facility] [address] [place], [address] MCHC (RBC) [Mass/Vol] 32.4 g/dL Normal 32-36 [facility] Comment on above: Performed By: #### L 100.0100, L500.4050, L501.2300, L501.5200 ####[facility] [address] [place], [address] MCV (RBC) [Entitic vol] 90.3 fL Normal 80-94 [facility] Comment on above: Performed By: #### L 100.0100, L500.4050, L501.2300, L501.5200 ####[facility] [address] [place], [address] Monocytes/100 WBC (Bld) 11.4 % High 0-10 [facility] Comment on above: Performed By: #### L 100.0100, L500.4050, L501.2300, L501.5200 ####[facility] [address] [place], [address] Neutrophils/100 WBC (Bld) 75.5 % High 47-70 [facility] Comment on above: Performed By: #### L 100.0100, L500.4050, L501.2300, L501.5200 ####[facility] [address] [place], [address] Nucleated RBC (Bld) [#/Vol] 0 10*3/uL Normal 0-5 [facility] Comment on above: Performed By: #### L 100.0100, L500.4050, L501.2300, L501.5200 ####[facility] [address] [place], [address] Platelet mean volume (Bld) [Entitic vol] 12.4 fL High 6.2-12.0 [facility] Comment on above: Performed By: #### L 100.0100, L500.4050, L501.2300, L501.5200 ####[facility] [address] [place], [address] Platelets (Bld) [#/Vol] 104 10*3/uL Low 150-450 [facility] Comment on above: Performed By: #### L 100.0100, L500.4050, L501.2300, L501.5200 ####[facility] [address] [place], [address] RBC (Bld) [#/Vol] 3.52 10*6/uL Low 4.6-6.2 [facility] Comment on above: Performed By: #### L 100.0100, L500.4050, L501.2300, L501.5200 ####[facility] [address] [place], [address] RDW SD 46.0 fl High 35.1-43.9 [facility] Comment on above: Performed By: #### L 100.0100, L500.4050, L501.2300, L501.5200 ####[facility] [address] [place], [address] WBC (Bld) [#/Vol] 9.1 10*3/uL Normal 4.4-11.0 [facility] Comment on above: Performed By: #### L 100.0100, L500.4050, L501.2300, L501.5200 ####[facility] [address] [place], [address] [facility] 12-03-2024 Albumin [Mass/Vol] 3.4 g/dL Normal 3.4-4.8 [facility] Comment on above: Performed By: #### L 100.0100, L500.4050, L501.2300, L501.5200 ####[facility] [address] [place], [address] Albumin/Globulin [Mass ratio] 1.2 {ratio} Normal 0.9-2.4 [facility] Comment on above: Performed By: #### L 100.0100, L500.4050, L501.2300, L501.5200 ####[facility] [address] [place], [address] ALK PHOS 94 U/L Normal 40-129 [facility] Comment on above: Performed By: #### L 100.0100, L500.4050, L501.2300, L501.5200 ####[facility] [address] [place], [address] ALT [Catalytic activity/Vol] 47 U/L Normal <=46 [facility] Comment on above: Performed By: #### L 100.0100, L500.4050, L501.2300, L501.5200 ####[facility] [address] [place], [address] AST [Catalytic activity/Vol] 134 U/L High <=37 [facility] Comment on above: Performed By: #### L 100.0100, L500.4050, L501.2300, L501.5200 ####[facility] [address] [place], [address] Bilirubin [Mass/Vol] 1.27 mg/dL Normal 0.00-1.30 [facility] Comment on above: Performed By: #### L 100.0100, L500.4050, L501.2300, L501.5200 ####[facility] [address] [place], [address] BUN/CRE 20.6 RATIO High 10-20 [facility] Comment on above: Performed By: #### L 100.0100, L500.4050, L501.2300, L501.5200 ####[facility] [address] [place], [address] Calcium [Mass/Vol] 8.9 mg/dL Normal 7.6-11.0 [facility] Comment on above: Performed By: #### L 100.0100, L500.4050, L501.2300, L501.5200 ####[facility] [address] [place], [address] Chloride [Moles/Vol] 100 mmol/L Normal 98-108 [facility] Comment on above: Performed By: #### L 100.0100, L500.4050, L501.2300, L501.5200 ####[facility] [address] [place], [address] CO2 [Moles/Vol] 18.7 mmol/L Low 21.0-32.0 [facility] Comment on above: Performed By: #### L 100.0100, L500.4050, L501.2300, L501.5200 ####[facility] [address] [place], [address] Creatinine [Mass/Vol] 2.58 mg/dL High 0.70-1.20 [facility] Comment on above: Performed By: #### L 100.0100, L500.4050, L501.2300, L501.5200 ####[facility] [address] [place], [address] ECRCL 28.22 ml/min Low 50-250 [facility] Comment on above: Performed By: #### L 100.0100, L500.4050, L501.2300, L501.5200 ####[facility] [address] [place], [address] GAP 15 Normal 5-15 [facility] Comment on above: Performed By: #### L 100.0100, L500.4050, L501.2300, L501.5200 ####[facility] [address] [place], [address] GFR/1.73 sq M.predicted among non-blacks MDRD (S/P/Bld) [Vol rate/Area] 25 mL/min/{1.73_m2} Low >60 [facility] Comment on above: Result Comment: mL/m in/1.73m2 CKD-EPI Creatinine Equation (2020) Performed By: #### L 100.0100, L500.4050, L501.2300, L501.5200 ####[facility] [address] [place], [address] Globulin (S) [Mass/Vol] 2.8 g/dL Normal 2.2-4.2 [facility] Comment on above: Performed By: #### L 100.0100, L500.4050, L501.2300, L501.5200 ####[facility] [address] [place], [address] Glucose [Mass/Vol] 154 mg/dL High 70-99 [facility] Comment on above: Performed By: #### L 100.0100, L500.4050, L501.2300, L501.5200 ####[facility] [address] [place], [address] Potassium [Moles/Vol] 3.7 mmol/L Normal 3.3-5.1 [facility] Comment on above: Performed By: #### L 100.0100, L500.4050, L501.2300, L501.5200 ####[facility] [address] [place], [address] Sodium [Moles/Vol] 134 mmol/L Normal 133-145 [facility] Comment on above: Performed By: #### L 100.0100, L500.4050, L501.2300, L501.5200 ####[facility] [address] [place], [address] T PROT 6.3 g/dL Normal 5.9-8.4 [facility] Comment on above: Performed By: #### L 100.0100, L500.4050, L501.2300, L501.5200 ####[facility] [address] [place], [address] Urea nitrogen [Mass/Vol] 53 mg/dL High 4-19 [facility] Comment on above: Performed By: #### L 100.0100, L500.4050, L501.2300, L501.5200 ####[facility] [address] [place], [address] Consultation - Cardiologyon 12-03-2024 Consultation - Cardiology Normal [facility] Ketones Test strip Ql (U)Ord ered By: Alex Resendez on 12-03-2024 Ketones Ql (U) Negative Negative [facility] Magnesiumon 12-03-2024 Magnesium [Mass/Vol] 2.5 mg/dL High 1.5-2.2 [facility] Comment on above: Performed By: #### L 100.0100, L500.4050, L501.2300, L501.5200 ####[facility] [address] [place], [place], [address] Magnesium measurement (mass/ volume)Ordered By: Alex Resendez on 12-03-2024 Magnesium (Unsp spec) [Mass/Vol] 2.5 mg/dL High 1.5-2.2 [facility] Mucus LM Ql (Urine sed)Order ed By: Alex Resendez on 12-03-2024 Mucus Ql (Urine sed) 0 SEEN /hpf [facility] Nitrite Test strip Ql (U)Ord ered By: Alex Resendez on 12-03-2024 Nitrite Ql (U) Negative Negative [facility] No Panel InformationOrdered By: Alex Resendez on 12-03-2024 134 U/L High <38 [facility] Phosphoruson 12-03-2024 Phosphate [Mass/Vol] 3.4 mg/dL Normal 2.7-4.5 [facility] Comment on above: Performed By: #### L 100.0100, L500.4050, L501.2300, L501.5200 ####[facility] [address] [place], [place], [id number] Protein Test strip Ql (U)Ord ered By: Alex Resendez on 12-03-2024 Protein Ql (U) 15 mg/dl High Negative [facility] Serum globulin measurementOr dered By: Alex Resendez on 12-03-2024 Globulin (S) [Mass/Vol] 2.8 g/dL 2.2-4.2 [facility] Serum or plasma alanine guerrero otransferase (ALT) measurementOrdered By: Alex Resendez on 12-03-2024 ALT [Catalytic activity/Vol] 47 U/L <47 [facility] Serum or plasma albumin francine urement (mass/volume)Ordered By: Alex Resendez on 12-03-2024 Albumin [Mass/Vol] 3.4 g/dL 3.4-4.8 [facility] Serum or plasma albumin/glob ulin mass ratioOrdered By: Alex Resendez on 12-03-2024 Albumin/Globulin [Mass ratio] 1.2 {ratio} 0.9-2.4 [facility] Serum or plasma alkaline bell sphatase measurementOrdered By: Alex Resendez on 12-03-2024 ALP [Catalytic activity/Vol] 94 U/L 40-129 [facility] Squamous epithelial cells de tection in urine sediment by light microscopyOrdered By: Alex Resendez on 12-03-2024 Epithelial cells.squamous LM Ql (Urine sed) 0 SEEN /hpf 0-5 [facility] Total proteinOrdered By: Yoseph Resendez on 12-03-2024 Protein [Mass/Vol] 6.3 g/dL 5.9-8.4 [facility] Troponin T HS 2 HRon 025 Trop T High Sen > 04802 Invalid Interpretation Code <=22 [facility] Comment on above: Result Comment: Crit ical Result(s) Called at:0007 by:??KEIKO BABB Results read back by same. Performed By: #### L 499.0042 ####[facility] [address] [place], [address] Troponin T HS 4 HRon 025 Trop T High Sen > 60599 Invalid Interpretation Code <=22 [facility] Comment on above: Result Comment: Crit ical Result(s) Called at: 0240 by:??KEIKO HOOPER Results read back by same. Performed By: #### L 499.0043 ####[facility] [address] [place], [place], [address] Troponin T.cardiac [Mass/vol ume] in Serum or Plasma by High sensitivity methodOrdered By: Rasheed Canela on 12-03-2024 Troponin T.cardiac High sensitivity method [Mass/Vol] > 03606 ng/L High <22 [facility] Urinalysis, Completeon 12-03 BACTERIA 0 SEEN Normal None Seen [facility] Comment on above: Order Comment: CLEAN CATCH Performed By: #### L 400.0001 ####[facility] [address] [place], [address] EPI,SQUAMOUS 0 SEEN Normal 0-5 [facility] Comment on above: Order Comment: CLEAN CATCH Performed By: #### L 400.0001 ####[facility] [address] [place], [address] Mucus Ql (Urine sed) 0 SEEN Normal [facility] Comment on above: Order Comment: CLEAN CATCH Performed By: #### L 400.0001 ####[facility] [address] [place], [address] RBC 0 SEEN Normal [address] Comment on above: Order Comment: CLEAN CATCH Performed By: #### L 400.0001 ####[facility] [address] [place], [address] WBC 0 SEEN Normal [address] [place] [address] Comment on above: Order Comment: CLEAN CATCH Performed By: #### L 400.0001 ####[facility] [address] [place], [address] Urine clarityOrdered By: Yoseph Resendez on 12-03-2024 Clarity (U) Clear Clear [facility] Urine color determinationOrd ered By: Alex Resendez on 12-03-2024 Color (U) Yellow Yellow [facility] Urine glucose detectionOrder ed By: Alex Resendez on 12-03-2024 Glucose Ql (U) Normal mg/dl Normal [facility] Urine leukocyte esterase det ection by dipstickOrdered By: Alex Resendez on 12-03-2024 Leukocyte esterase Test strip Ql (U) Negative Negative [facility] Urine pHOrdered By: Alex best on 12-03-2024 pH (U) 6.0 [pH] 5.0 - 8.0 [facility] Urine sediment bacteria coun t by microscopy (number/high power field)Ordered By: Alex Resendez on 12-03-2024 Bacteria LM.HPF (Urine sed) [#/Area] 0 /[HPF] None Seen [facility] Urine specific gravity measu rementOrdered By: Alex Resendez on 12-03-2024 Specific gravity (U) [Rel density] 1.015 1.002-1.03 0 [facility] Urine urobilinogen measureme ntOrdered By: Alex Resendez on 12-03-2024 Urobilinogen Ql (U) Normal mg/dl Normal [facility] White blood cell countOrdere d By: Alex Resendez on 12-03-2024 White blood cell count 0 SEEN /hpf 0-5 [facility] 12 Lead EKGon 12-02-2024 12 Lead EKG Normal [facility] ACT Activated Clotting Timeo n 12-02-2024 ACTk CLOT TIME 245 sec High 74-137 [facility] Comment on above: Performed By: #### L 9100.0100 ####[facility] [address] [place], [address] Absolute lymphocyte countOrd ered By: Rasheed Canela on 12-02-2024 Lymphocytes Auto (Unsp spec) [#/Vol] 1.13 10*3/uL 0.83-4.51 [facility] Absolute lymphocyte countOrd ered By: Nickie Danielson on 12-02-2024 Lymphocytes Auto (Unsp spec) [#/Vol] 0.85 10*3/uL 0.83-4.51 [facility] Activated partial thrombopla stin time (aPTT) in platelet poor plasma by coagulation aOrdered By: Rasheed Canela on 12-02-2024 aPTT Coag (PPP) [Time] 31.6 s 24.1-36.2 [facility] Anion gap in Serum or Plasma Ordered By: Rasheed Canela on 12-02-2024 Anion gap [Moles/Vol] 14 mmol/L 5-15 [facility] Anion gap in Serum or Plasma Ordered By: Nickie Danielson on 12-02-2024 Anion gap [Moles/Vol] 14 mmol/L 5- [facility] Automated lymphocyte count a s percentage of total leukocytesOrdered By: Rasheed Canela on 12-02-2024 Lymphocytes/100 WBC Auto (Unsp spec) 8.9 % Low [facility] Automated lymphocyte count a s percentage of total leukocytesOrdered By: Nickie Danielson on 12-02-2024 Lymphocytes/100 WBC Auto (Unsp spec) 7.6 % Low [facility] BUN/creatinine ratioOrdered By: Rasheed Canela on 12-02-2024 Urea nitrogen/Creatinine [Mass ratio] 18.0 mg/mg 02-19 [facility] BUN/creatinine ratioOrdered By: Nickie Danielson on 12-02-2024 Urea nitrogen/Creatinine [Mass ratio] 17.2 mg/mg 02-19 [facility] Basic Metabolic Profile (BMP )on 12-02-2024 BUN/CRE 18.0 RATIO Normal 02-19 [facility] Comment on above: Performed By: #### L 100.0100, L500.2500, L300.3900, L300.4310, L501.4021 ####[facility] [address] [place], [address] Calcium [Mass/Vol] 9.1 mg/dL Normal 7.6-11.0 [facility] Comment on above: Performed By: #### L 100.0100, L500.2500, L300.3900, L300.4310, L501.4021 ####[facility] [address] [place], [address] Chloride [Moles/Vol] 96 mmol/L Low 98-108 [facility] Comment on above: Performed By: #### L 100.0100, L500.2500, L300.3900, L300.4310, L501.4021 ####[facility] [address] [place], [address] CO2 [Moles/Vol] 20.5 mmol/L Low 21.0-32.0 [facility] Comment on above: Performed By: #### L 100.0100, L500.2500, L300.3900, L300.4310, L501.4021 ####[facility] [address] [place], [address] Creatinine [Mass/Vol] 2.90 mg/dL High 0.70-1.20 [facility] Comment on above: Performed By: #### L 100.0100, L500.2500, L300.3900, L300.4310, L501.4021 ####[facility] [address] [place], [address] ECRCL 25.31 ml/min Low 50-250 [facility] Comment on above: Performed By: #### L 100.0100, L500.2500, L300.3900, L300.4310, L501.4021 ####[facility] [address] [place], [address] GAP 14 Normal 5-15 [facility] Comment on above: Performed By: #### L 100.0100, L500.2500, L300.3900, L300.4310, L501.4021 ####[facility] [address] [place], [address] GFR/1.73 sq M.predicted among non-blacks MDRD (S/P/Bld) [Vol rate/Area] 21 mL/min/{1.73_m2} Low >60 [facility] Comment on above: Result Comment: mL/m in/1.73m2 CKD-EPI Creatinine Equation (2020) Performed By: #### L 100.0100, L500.2500, L300.3900, L300.4310, L501.4021 ####[facility] [address] [place], [address] Glucose [Mass/Vol] 175 mg/dL High 70-99 [facility] Comment on above: Performed By: #### L 100.0100, L500.2500, L300.3900, L300.4310, L501.4021 ####[facility] [address] [place], [address] Potassium [Moles/Vol] 4.6 mmol/L Normal 3.3-5.1 [facility] Comment on above: Performed By: #### L 100.0100, L500.2500, L300.3900, L300.4310, L501.4021 ####[facility] [address] [place], [address] Sodium [Moles/Vol] 131 mmol/L Low 133-145 [facility] Comment on above: Performed By: #### L 100.0100, L500.2500, L300.3900, L300.4310, L501.4021 ####[facility] [address] [place], [address] Urea nitrogen [Mass/Vol] 52 mg/dL High 4-19 [facility] Comment on above: Performed By: #### L 100.0100, L500.2500, L300.3900, L300.4310, L501.4021 ####[facility] [address] [place], [address] BUN/CRE 17.2 RATIO Normal 10-20 [facility] Comment on above: Performed By: #### L 100.0100, L500.2500 ####[facility] [address] [place], [address] Calcium [Mass/Vol] 9.3 mg/dL Normal 7.6-11.0 [facility] Comment on above: Performed By: #### L 100.0100, L500.2500 ####[facility] [address] [place], [address] Chloride [Moles/Vol] 99 mmol/L Normal 98-108 [facility] Comment on above: Performed By: #### L 100.0100, L500.2500 ####[facility] [address] [place], [address] CO2 [Moles/Vol] 20.6 mmol/L Low 21.0-32.0 [facility] Comment on above: Performed By: #### L 100.0100, L500.2500 ####[facility] [address] [place], [address] Creatinine [Mass/Vol] 2.93 mg/dL High 0.70-1.20 [facility] Comment on above: Performed By: #### L 100.0100, L500.2500 ####[facility] [address] [place], [address] ECRCL 24.95 ml/min Low 50-250 [facility] Comment on above: Performed By: #### L 100.0100, L500.2500 ####[facility] [address] [place], [address] GAP 14 Normal 5-15 [facility] Comment on above: Performed By: #### L 100.0100, L500.2500 ####[facility] [address] [place], [address] GFR/1.73 sq M.predicted among non-blacks MDRD (S/P/Bld) [Vol rate/Area] 21 mL/min/{1.73_m2} Low >60 [facility] Comment on above: Result Comment: mL/m in/1.73m2 CKD-EPI Creatinine Equation (2020) Performed By: #### L 100.0100, L500.2500 ####[facility] [address] [place], [address] Glucose [Mass/Vol] 138 mg/dL High 70-99 [facility] Comment on above: Performed By: #### L 100.0100, L500.2500 ####[facility] [address] [place], [address] Potassium [Moles/Vol] 4.8 mmol/L Normal 3.3-5.1 [facility] Comment on above: Performed By: #### L 100.0100, L500.2500 ####[facility] [address] [place], [address] Sodium [Moles/Vol] 133 mmol/L Normal 133-145 [facility] Comment on above: Performed By: #### L 100.0100, L500.2500 ####[facility] [address] [place], [address] Urea nitrogen [Mass/Vol] 50 mg/dL High 4-19 [facility] Comment on above: Performed By: #### L 100.0100, L500.2500 ####[facility] [address] [place], [address] Basophil percentageOrdered B y: Rasheed Canela on 12-02-2024 Basophils/100 WBC (Bld) 0.3 % 0-1 [facility] Basophil percentageOrdered B y: Nickie Danielson on 12-02-2024 Basophils/100 WBC (Bld) 0.1 % 0-1 [facility] Bedside Glucoseon 12-02-2024 FINGERSTICK GLU 129 mg/dL High 74-106 [facility] Comment on above: Result Comment: WILDA BARROSO OF PATIENT CARE PER NURSING PROTOCOL Performed By: #### L 501.080 ####[facility] [address] [place], [address] Blood manual differential co mment interpretation (narrative result)Ordered By: Rasheed Canela on 12-02-2024 Manual differential comment Luis Manuel (Bld) [Interp] SCANNED [facility] Brain without Contraston Brain without Contrast Normal [facility] CBC W/Diff, Automatedon PLT EST SLT DEC Normal ADEQ [facility] Comment on above: Performed By: #### L 100.0100, L500.2500, L300.3900, L300.4310, L501.4021 ####[facility] [address] [place], [address] SMEAR COMMENT SCANNED Normal [facility] Comment on above: Performed By: #### L 100.0100, L500.2500, L300.3900, L300.4310, L501.4021 ####[facility] [address] [place], [address] Absolute Lymph 0.85 X10 3/uL Normal 0.83-4.51 [facility] Comment on above: Performed By: #### L 100.0100, L500.2500 ####[facility] [address] [place], [address] Absolute Neut 8.8 X10 3/uL High 2.0-7.7 [facility] Comment on above: Performed By: #### L 100.0100, L500.2500 ####[facility] [address] [place], [address] Basophils/100 WBC (Bld) 0.1 % Normal 0-1 [facility] Comment on above: Performed By: #### L 100.0100, L500.2500 ####[facility] [address] [place], [address] Eosinophils/100 WBC (Bld) 0.7 % Normal 0-5 [facility] Comment on above: Performed By: #### L 100.0100, L500.2500 ####[facility] [address] [place], [address] Erythrocyte distribution width (RBC) [Ratio] 14.4 % Normal 11.6-14.6 [facility] Comment on above: Performed By: #### L 100.0100, L500.2500 ####[facility] [address] [place], [address] Hematocrit (Bld) [Volume fraction] 32.1 % Low 40-54 [facility] Comment on above: Performed By: #### L 100.0100, L500.2500 ####[facility] [address] [place], [address] Hemoglobin (Bld) [Mass/Vol] 10.4 g/dL Low 13.0-16.5 [facility] Comment on above: Performed By: #### L 100.0100, L500.2500 ####[facility] [address] [place], [address] IG% 0.700 Normal 0.0-0.9 [facility] Comment on above: Result Comment: IG% - Immature Granulocytes (promyelocytes, myelocytes andmetamyelocytes) > 1% indicates that a LEFT SHIFT is Present. Performed By: #### L 100.0100, L500.2500 ####[facility] [address] [place], [address] Lymphocytes/100 WBC (Bld) 7.6 % Low 19-41 [facility] Comment on above: Performed By: #### L 100.0100, L500.2500 ####[facility] [address] [place], [address] MCH (RBC) [Entitic mass] 29.5 pg Normal 27.0-32.0 [facility] Comment on above: Performed By: #### L 100.0100, L500.2500 ####[facility] [address] [place], [address] MCHC (RBC) [Mass/Vol] 32.4 g/dL Normal 32-36 [facility] Comment on above: Performed By: #### L 100.0100, L500.2500 ####[facility] [address] [place], [address] MCV (RBC) [Entitic vol] 91.2 fL Normal 80-94 [facility] Comment on above: Performed By: #### L 100.0100, L500.2500 ####[facility] [address] [place], [address] Monocytes/100 WBC (Bld) 12.0 % High 0-10 [facility] Comment on above: Performed By: #### L 100.0100, L500.2500 ####[facility] [address] [place], [address] Neutrophils/100 WBC (Bld) 78.9 % High 47-70 [facility] Comment on above: Performed By: #### L 100.0100, L500.2500 ####[facility] [address] [place], [address] Nucleated RBC (Bld) [#/Vol] 0 10*3/uL Normal 0-5 [facility] Comment on above: Performed By: #### L 100.0100, L500.2500 ####[facility] [address] [place], [address] Platelet mean volume (Bld) [Entitic vol] 13.1 fL High 6.2-12.0 [facility] Comment on above: Performed By: #### L 100.0100, L500.2500 ####[facility] [address] [place], [address] Platelets (Bld) [#/Vol] 113 10*3/uL Low 150-450 [facility] Comment on above: Performed By: #### L 100.0100, L500.2500 ####[facility] [address] [place], [address] RBC (Bld) [#/Vol] 3.52 10*6/uL Low 4.6-6.2 [facility] Comment on above: Performed By: #### L 100.0100, L500.2500 ####[facility] [address] [place], [address] RDW SD 47.4 fl High 35.1-43.9 [facility] Comment on above: Performed By: #### L 100.0100, L500.2500 ####[facility] [address] [place], [address] WBC (Bld) [#/Vol] 11.2 10*3/uL High 4.4-11.0 [facility] Comment on above: Performed By: #### L 100.0100, L500.2500 ####[facility] [address] [place], [address] CVS/PCIREPORTon 12-02-2024 CVS/PCIREPORT Normal [facility] Carbon dioxide, total [Moles /volume] in Central venous bloodOrdered By: Rasheed Canela on 12-02-2024 CO2 [Moles/Vol] 20.5 mmol/L Low 21.0-32.0 [facility] Carbon dioxide, total [Moles /volume] in Central venous bloodOrdered By: Nickie Danielson on 12-02-2024 CO2 [Moles/Vol] 20.6 mmol/L Low 21.0-32.0 [facility] Chloride assayOrdered By: Afshin Canela on 12-02-2024 Chloride [Moles/Vol] 96 mmol/L Low 98-108 [facility] Chloride assayOrdered By: Korina Danielson on 12-02-2024 Chloride [Moles/Vol] 99 mmol/L 98-108 [facility] Emergency Department Summary on 12-02-2024 Emergency Department Summary Normal [facility] Eosinophil percentageOrdered By: Rasheed Canela on 12-02-2024 Eosinophils/100 WBC (Bld) 0.8 % 0-5 [facility] Eosinophil percentageOrdered By: Nickie Danielson on 12-02-2024 Eosinophils/100 WBC (Bld) 0.7 % 0-5 [facility] Erythrocyte distribution wid th ratioOrdered By: Rasheed Canela on 12-02-2024 Erythrocyte distribution width (RBC) [Ratio] 14.1 % 11.6-14.6 [facility] Erythrocyte distribution wid th ratioOrdered By: Nickie Danielson on 12-02-2024 Erythrocyte distribution width (RBC) [Ratio] 14.4 % 11.6-14.6 [facility] Erythrocyte distribution wid th standard deviationOrdered By: Rasheed Canela on 12-02-2024 Erythrocyte distribution width (RBC) [Ratio] 45.8 fl High 35.1-43.9 [facility] Erythrocyte distribution wid th standard deviationOrdered By: Nickie Danielson on 12-02-2024 Erythrocyte distribution width (RBC) [Ratio] 47.4 fl High 35.1-43.9 [facility] Glomerular filtration rate ( GFR) estimation/1.73 sq m using serum, plasma, or whole bOrdered By: Rasheed Canela on 12-02-2024 GFR/1.73 sq M.predicted among non-blacks MDRD (S/P/Bld) [Vol rate/Area] 21 mL/min/{1.73_m2} Low >60 [facility] Glomerular filtration rate ( GFR) estimation/1.73 sq m using serum, plasma, or whole bOrdered By: Nickie Danielson on 12-02-2024 GFR/1.73 sq M.predicted among non-blacks MDRD (S/P/Bld) [Vol rate/Area] 21 mL/min/{1.73_m2} Low >60 [facility] Gl[facility] at [facility] deOrdered By: Nickie Danielson on 12-02-2024 Glucose [Mass/Vol] 200 mg/dL High 74-106 [facility] Glucose [Mass/Vol] 129 mg/dL High 74-106 [facility] H AND P Exam - Hospitaliston 12-02-2024 H&P Exam - Hospitalist Normal [facility] Hematocrit Auto (Bld) [Volum e fraction]Ordered By: Rasheed Canela on 12-02-2024 Hematocrit (Bld) [Volume fraction] 34.1 % Low 40-54 [facility] Hematocrit Auto (Bld) [Volum e fraction]Ordered By: Nickie Danielson on 12-02-2024 Hematocrit (Bld) [Volume fraction] 32.1 % Low 40-54 [facility] Hemoglobin measurementOrdere d By: Rasheed Canela on 12-02-2024 Hemoglobin (Bld) [Mass/Vol] 11.1 g/dL Low 13.0-16.5 [facility] Hemoglobin measurementOrdere d By: Nickie Danielson on 12-02-2024 Hemoglobin (Bld) [Mass/Vol] 10.4 g/dL Low 13.0-16.5 [facility] Immature granulocytes/100 WB C Auto (Bld)Ordered By: Rasheed Canela on 12-02-2024 Immature granulocytes/100 WBC (Bld) 0.600 % 0.0-0.9 [facility] Immature granulocytes/100 WB C Auto (Bld)Ordered By: Nickie Danielson on 12-02-2024 Immature granulocytes/100 WBC (Bld) 0.700 % 0.0-0.9 [facility] L501.4021on 12-02-2024 Trop T High Sen > 58293 Invalid Interpretation Code <=22 [facility] Comment on above: Result Comment: Crit ical Result(s) Called at: 2120 by: MOISE MENDIOLA??Results read back by same. Performed By: #### L 100.0100, L500.2500, L300.3900, L300.4310, L501.4021 ####[facility] [address] [place], [address] MCV (mean corpuscular volume ) determinationOrdered By: Rasheed Canela on 12-02-2024 MCV (RBC) [Entitic vol] 89.5 fL 80-94 [facility] MCV (mean corpuscular volume ) determinationOrdered By: Nickie Danielson on 12-02-2024 MCV (RBC) [Entitic vol] 91.2 fL 80-94 [facility] MR/CON.PCM.NEon 12-02-2024 MR/CON.PCM.NE Normal [facility] MRA Head ONLY without Contra ston 12-02-2024 MRA Head ONLY without Contrast Normal [facility] MRA Neck without Contraston 12-02-2024 MRA Neck without Contrast Normal [facility] Magnetic resonance imaging r eportOrdered By: Nghia Waters on 12-02-2024 Study report [facility] Mean corpuscular hemoglobin (MCH) determinationOrdered By: Rasheed Canela on 12-02-2024 MCH (RBC) [Entitic mass] 29.1 pg 27.0-32.0 [facility] Mean corpuscular hemoglobin (MCH) determinationOrdered By: Nickie Danielson on 12-02-2024 MCH (RBC) [Entitic mass] 29.5 pg 27.0-32.0 [facility] Monocyte percentageOrdered B y: Rasheed Canlea on 12-02-2024 Monocytes/100 WBC (Bld) 12.7 % High 0-10 [facility] Monocyte percentageOrdered B y: Nickie Danielson on 12-02-2024 Monocytes/100 WBC (Bld) 12.0 % High 0-10 [facility] Neutrophil percentageOrdered By: Rasheed Canela on 12-02-2024 Neutrophils/100 WBC (Bld) 76.7 % High 47-70 [facility] Neutrophil percentageOrdered By: Nickie Danielson on 12-02-2024 Neutrophils/100 WBC (Bld) 78.9 % High 47-70 [facility] Partial Thromboplast Timeon 12-02-2024 aPTT Coag (Bld) [Time] 31.6 s Normal 24.1-36.2 [facility] Comment on above: Performed By: #### L 100.0100, L500.2500, L300.3900, L300.4310, L501.4021 ####[facility] [address] [place], [place], [id number] Platelet countOrdered By: Afshin Canela on 12-02-2024 Platelets (Bld) [#/Vol] 134 10*3/uL Low 150-450 [facility] Platelet countOrdered By: Korina Danielson on 12-02-2024 Platelets (Bld) [#/Vol] 113 10*3/uL Low 150-450 [facility] Platelet estimateOrdered By: Rasheed Canela on 12-02-2024 Platelets LM Ql (Bld) SLT DEC ADEQ [facility] Potassium measurement (mass/ volume)Ordered By: Rasheed Canela on 12-02-2024 Potassium (Unsp spec) [Mass/Vol] 4.6 mmol/L 3.3-5.1 [facility] Potassium measurement (mass/ volume)Ordered By: Nickie Danielson on 12-02-2024 Potassium (Unsp spec) [Mass/Vol] 4.8 mmol/L 3.3-5.1 [facility] Prothrombin Time w/INRon INR Coag (PPP) [Relative time] 1.1 {INR} Normal [facility] Comment on above: Performed By: #### L 100.0100, L500.2500, L300.3900, L300.4310, L501.4021 ####[facility] [address] [place], [place], [id number] PT Coag (PPP) [Time] 14.6 s Normal 11.7-14.9 [facility] Comment on above: Performed By: #### L 100.0100, L500.2500, L300.3900, L300.4310, L501.4021 ####[facility] [address] [place], [place], [id number] Prothrombin timeOrdered By: Rasheed Canela on 12-02-2024 PT Coag (PPP) [Time] 14.6 s 11.7-14.9 [facility] RBC Auto (Bld) [#/Vol]Ordere d By: Rasheed Canela on 12-02-2024 RBC (Bld) [#/Vol] 3.81 10*6/uL Low 4.6-6.2 [facility] RBC Auto (Bld) [#/Vol]Ordere d By: Nickie Danielson on 12-02-2024 RBC (Bld) [#/Vol] 3.52 10*6/uL Low 4.6-6.2 [facility] Serum creatinine measurement (mass/volume)Ordered By: Rasheed Canela on 12-02-2024 Creatinine [Mass/Vol] 2.90 mg/dL High 0.70-1.20 [facility] Serum creatinine measurement (mass/volume)Ordered By: Nickie Danielson on 12-02-2024 Creatinine [Mass/Vol] 2.93 mg/dL High 0.70-1.20 [facility] Serum glucose measurement (m ass/volume)Ordered By: Rasheed Canela on 12-02-2024 Glucose [Mass/Vol] 175 mg/dL High 70- [facility] Serum glucose measurement (m ass/volume)Ordered By: Nickie Danielson on 12-02-2024 Glucose [Mass/Vol] 138 mg/dL High 70- [facility] Serum or plasma calcium francine urement (mass/volume)Ordered By: Rasheed Canela on 12-02-2024 Calcium [Mass/Vol] 9.1 mg/dL 7.6-11.0 [facility] Serum or plasma calcium francine urement (mass/volume)Ordered By: Nickie Danielson on 12-02-2024 Calcium [Mass/Vol] 9.3 mg/dL 7.6-11.0 [facility] Serum or plasma urea nitroge n measurement (mass/volume)Ordered By: Rasheed Canela on 12-02-2024 Urea nitrogen [Mass/Vol] 52 mg/dL High 08-19 [facility] Serum or plasma urea nitroge n measurement (mass/volume)Ordered By: Nickie Danielson on 12-02-2024 Urea nitrogen [Mass/Vol] 50 mg/dL High 08-19 [facility] Sodium levelOrdered By: Rasheed Canela on 12-02-2024 Sodium [Moles/Vol] 131 mmol/L Low 133-145 [facility] Sodium levelOrdered By: Johanna Danielson on 12-02-2024 Sodium [Moles/Vol] 133 mmol/L 133-145 [facility] Troponin T.cardiac [Mass/vol ume] in Serum or Plasma by High sensitivity methodOrdered By: Rasheed Canela on 12-02-2024 Troponin T.cardiac High sensitivity method [Mass/Vol] > 71609 ng/L High <22 [facility] Troponin T.cardiac High sensitivity method [Mass/Vol] > 94132 ng/L High <22 [facility] White blood cell (WBC) count Ordered By: Rasheed Canela on 12-02-2024 WBC (Bld) [#/Vol] 12.7 10*3/uL High 4.4-11.0 [facility] White blood cell (WBC) count Ordered By: Nickie Danielson on 12-02-2024 WBC (Bld) [#/Vol] 11.2 10*3/uL High 4.4-11.0 [facility] 12 Lead EKGon 12-01-2024 12 Lead EKG Normal [facility] Bedside Glucoseon 12-01-2024 FINGERSTICK GLU 148 mg/dL High 74-106 [facility] Comment on above: Result Comment: WILDA GEMENT OF PATIENT CARE PER NURSING PROTOCOL Performed By: #### L 501.080 ####[facility] [address] [place], [address] FINGERSTICK GLU 203 mg/dL High [address] [place] [address] Comment on above: Result Comment: WILDA GEMENT OF PATIENT CARE PER NURSING PROTOCOL Performed By: #### L 501.080 ####[facility] [address] [place], [address] FINGERSTICK GLU 153 mg/dL High [address] [place] [address] Comment on above: Result Comment: WILDA GEMENT OF PATIENT CARE PER NURSING PROTOCOL Performed By: #### L 501.080 ####[facility] [address] [place], [address] FINGERSTICK GLU 187 mg/dL High [address] [place] [address] Comment on above: Result Comment: WILDA GEMENT OF PATIENT CARE PER NURSING PROTOCOL Performed By: #### L 501.080 ####[facility] [address] [place], [address] FINGERSTICK GLU 223 mg/dL High [address] [place] [address] Comment on above: Result Comment: WILDA GEMENT OF PATIENT CARE PER NURSING PROTOCOL Performed By: #### L 501.080 ####[facility] [address] [place], [address] Bilirubin, totalOrdered By: Jose Hay on 12-01-2024 Bilirubin [Mass/Vol] 1.07 mg/dL 0.00-1.30 [facility] CBC-Complete Blood Cnt No Di jazmin 12-01-2024 Erythrocyte distribution width (RBC) [Ratio] 14.0 % Normal 11.6-14.6 [facility] Comment on above: Performed By: #### L 100.0500, L500.4050 ####[facility] [address] [place], [address] Hematocrit (Bld) [Volume fraction] 33.2 % Low 40-54 [facility] Comment on above: Performed By: #### L 100.0500, L500.4050 ####[facility] [address] [place], [address] Hemoglobin (Bld) [Mass/Vol] 10.8 g/dL Low 13.0-16.5 [facility] Comment on above: Performed By: #### L 100.0500, L500.4050 ####[facility] [address] [place], [address] MCH (RBC) [Entitic mass] 29.3 pg Normal 27.0-32.0 [facility] Comment on above: Performed By: #### L 100.0500, L500.4050 ####[facility] [address] [place], [address] MCHC (RBC) [Mass/Vol] 32.5 g/dL Normal 32-36 [facility] Comment on above: Performed By: #### L 100.0500, L500.4050 ####[facility] [address] [place], [address] MCV (RBC) [Entitic vol] 90.2 fL Normal 80-94 [facility] Comment on above: Performed By: #### L 100.0500, L500.4050 ####[facility] [address] [place], [address] Platelet mean volume (Bld) [Entitic vol] 12.7 fL High 6.2-12.0 [facility] Comment on above: Performed By: #### L 100.0500, L500.4050 ####[facility] [address] [place], [address] Platelets (Bld) [#/Vol] 142 10*3/uL Low 150-450 [facility] Comment on above: Performed By: #### L 100.0500, L500.4050 ####[facility] [address] [place], [address] RBC (Bld) [#/Vol] 3.68 10*6/uL Low 4.6-6.2 [facility] Comment on above: Performed By: #### L 100.0500, L500.4050 ####[facility] [address] [place], [address] RDW SD 45.8 fl High 35.1-43.9 [facility] Comment on above: Performed By: #### L 100.0500, L500.4050 ####[facility] [address] [place], [address] WBC (Bld) [#/Vol] 14.6 10*3/uL High 4.4-11.0 [facility] Comment on above: Performed By: #### L 100.0500, L500.4050 ####[facility] [address] [place], [address] Cardiac rehabilitation repor tOrdered By: Natacha Fermin on 12-01-2024 Study report [facility] Comprehensive Metabolic Prof ilon 12-01-2024 Albumin [Mass/Vol] 3.7 g/dL Normal 3.4-4.8 [facility] Comment on above: Performed By: #### L 100.0500, L500.4050 ####[facility] [address] [place], [address] Albumin/Globulin [Mass ratio] 1.5 {ratio} Normal 0.9-2.4 [facility] Comment on above: Performed By: #### L 100.0500, L500.4050 ####[facility] [address] [place], [address] ALK PHOS 82 U/L Normal 40-129 [facility] Comment on above: Performed By: #### L 100.0500, L500.4050 ####[facility] [address] [place], [address] ALT [Catalytic activity/Vol] 77 U/L High <=46 [facility] Comment on above: Performed By: #### L 100.0500, L500.4050 ####[facility] [address] [place], [address] AST [Catalytic activity/Vol] 497 U/L High <=37 [facility] Comment on above: Performed By: #### L 100.0500, L500.4050 ####[facility] [address] [place], [address] Bilirubin [Mass/Vol] 1.07 mg/dL Normal 0.00-1.30 [facility] Comment on above: Performed By: #### L 100.0500, L500.4050 ####[facility] [address] [place], [address] BUN/CRE 14.2 RATIO Normal 10-20 [facility] Comment on above: Performed By: #### L 100.0500, L500.4050 ####[facility] [address] [place], [address] Calcium [Mass/Vol] 8.7 mg/dL Normal 7.6-11.0 [facility] Comment on above: Performed By: #### L 100.0500, L500.4050 ####[facility] [address] [place], [address] Chloride [Moles/Vol] 100 mmol/L Normal 98-108 [facility] Comment on above: Performed By: #### L 100.0500, L500.4050 ####[facility] [address] [place], [address] CO2 [Moles/Vol] 20.3 mmol/L Low 21.0-32.0 [facility] Comment on above: Performed By: #### L 100.0500, L500.4050 ####[facility] [address] [place], [address] Creatinine [Mass/Vol] 3.16 mg/dL High 0.70-1.20 [facility] Comment on above: Performed By: #### L 100.0500, L500.4050 ####[facility] [address] [place], [address] ECRCL 23.23 ml/min Low 50-250 [facility] Comment on above: Performed By: #### L 100.0500, L500.4050 ####[facility] [address] [place], [address] GAP 14 Normal 5-15 [facility] Comment on above: Performed By: #### L 100.0500, L500.4050 ####[facility] [address] [place], [address] GFR/1.73 sq M.predicted among non-blacks MDRD (S/P/Bld) [Vol rate/Area] 19 mL/min/{1.73_m2} Low >60 [facility] Comment on above: Result Comment: mL/m in/1.73m2 CKD-EPI Creatinine Equation (2020) Performed By: #### L 100.0500, L500.4050 ####[facility] [address] [place], [address] Globulin (S) [Mass/Vol] 2.4 g/dL Normal 2.2-4.2 [facility] Comment on above: Performed By: #### L 100.0500, L500.4050 ####[facility] [address] [place], [address] Glucose [Mass/Vol] 157 mg/dL High 70-99 [facility] Comment on above: Performed By: #### L 100.0500, L500.4050 ####[facility] [address] [place], [address] Potassium [Moles/Vol] 5.0 mmol/L Normal 3.3-5.1 [facility] Comment on above: Performed By: #### L 100.0500, L500.4050 ####[facility] [address] [place], [address] Sodium [Moles/Vol] 134 mmol/L Normal 133-145 [facility] Comment on above: Performed By: #### L 100.0500, L500.4050 ####[facility] [address] [place], [address] T PROT 6.0 g/dL Normal 5.9-8.4 [facility] Comment on above: Performed By: #### L 100.0500, L500.4050 ####[facility] [address] [place] [place], [address] Urea nitrogen [Mass/Vol] 45 mg/dL High 4-19 [facility] Comment on above: Performed By: #### L 100.0500, L500.4050 ####[facility] [address] [place], [address] Echo Limited w/Contraston Echo Limited w/Contrast Normal [facility] Electrocardiogram reportOrde red By: Marcin Araujo on 12-01-2024 EKG study [facility] Work Phone: HH, Hemoglobin AND Hematocri ton 12-01-2024 Hematocrit (Bld) [Volume fraction] 32.7 % Low 40-54 [facility] Comment on above: Performed By: #### L 100.0600 ####[facility] [address] [place], [place], [id number] Hemoglobin (Bld) [Mass/Vol] 10.6 g/dL Low 13.0-16.5 [facility] Comment on above: Performed By: #### L 100.0600 ####[facility] [address] [place], [place], [id number] Limited echocardiogram repor tOrdered By: Lance Espino on 12-01-2024 Study report [facility] Other Phone: No Panel InformationOrdered By: Jose Hay on 12-01-2024 497 U/L High <38 [facility] STROKE Brain/Head without Co nton 12-01-2024 STROKE Brain/Head without Cont Normal [facility] Serum globulin measurementOr dered By: Jose Hay on 12-01-2024 Globulin (S) [Mass/Vol] 2.4 g/dL 2.2-4.2 [facility] Serum or plasma alanine guerrero otransferase (ALT) measurementOrdered By: Jose Hay on 12-01-2024 ALT [Catalytic activity/Vol] 77 U/L High <47 [facility] Serum or plasma albumin francine urement (mass/volume)Ordered By: Jose Hay on 12-01-2024 Albumin [Mass/Vol] 3.7 g/dL 3.4-4.8 [facility] Serum or plasma albumin/glob ulin mass ratioOrdered By: Jose Hay on 12-01-2024 Albumin/Globulin [Mass ratio] 1.5 {ratio} 0.9-2.4 [facility] Serum or plasma alkaline bell sphatase measurementOrdered By: Jose Hay on 12-01-2024 ALP [Catalytic activity/Vol] 82 U/L 40-129 [facility] Total proteinOrdered By: Emmanuel Hay on 12-01-2024 Protein [Mass/Vol] 6.0 g/dL 5.9-8.4 [facility] 12 Lead EKGon 11-30-2024 12 Lead EKG Normal [facility] ACT Activated Clotting Timeo n 11-30-2024 ACTk CLOT TIME 187 sec High 74-137 [facility] Comment on above: Performed By: #### L 9100.0100 ####[facility] [address] [place], [address] ACTk CLOT TIME 176 sec High 74-137 [facility] Comment on above: Performed By: #### L 9100.0100 ####[facility] [address] [facility] [place], [address] Absolute lymphocyte countOrd ered By: Isael Bernabe on 11-30-2024 Lymphocytes Auto (Unsp spec) [#/Vol] 1.93 10*3/uL 0.83-4.51 [facility] Activated partial thrombopla stin time (aPTT) in platelet poor plasma by coagulation aOrdered By: Isael Bernabe on 11-30-2024 aPTT Coag (PPP) [Time] 112.9 s High 24.1-36.2 [facility] Anion gap in Serum or Plasma Ordered By: Isael Bernabe on 11-30-2024 Anion gap [Moles/Vol] 19 mmol/L High 5-15 [facility] Automated lymphocyte count a s percentage of total leukocytesOrdered By: Isael Bernabe on 11-30-2024 Lymphocytes/100 WBC Auto (Unsp spec) 10.1 % Low 19-41 [facility] BUN/creatinine ratioOrdered By: Isael Bernabe on 11-30-2024 Urea nitrogen/Creatinine [Mass ratio] 14.4 mg/mg 10-20 [facility] Basic Metabolic Profile (BMP )on 11-30-2024 BUN/CRE 14.4 RATIO Normal - [facility] Comment on above: Performed By: #### L 500.2500, L501.4021, L100.0100, L300.3900, L300.4310 ####[facility] [address] [place], [address] Calcium [Mass/Vol] 9.5 mg/dL Normal 7.6-11.0 [facility] Comment on above: Performed By: #### L 500.2500, L501.4021, L100.0100, L300.3900, L300.4310 ####[facility] [address] [place], [address] Chloride [Moles/Vol] 98 mmol/L Normal 98-108 [facility] Comment on above: Performed By: #### L 500.2500, L501.4021, L100.0100, L300.3900, L300.4310 ####[facility] [address] [place], [address] CO2 [Moles/Vol] 18.3 mmol/L Low 21.0-32.0 [facility] Comment on above: Performed By: #### L 500.2500, L501.4021, L100.0100, L300.3900, L300.4310 ####[facility] [address] [place], [address] Creatinine [Mass/Vol] 3.10 mg/dL High 0.70-1.20 [facility] Comment on above: Performed By: #### L 500.2500, L501.4021, L100.0100, L300.3900, L300.4310 ####[facility] [address] [place], [address] GAP 19 High 5-15 [facility] Comment on above: Performed By: #### L 500.2500, L501.4021, L100.0100, L300.3900, L300.4310 ####[facility] [address] [place], [address] GFR/1.73 sq M.predicted among non-blacks MDRD (S/P/Bld) [Vol rate/Area] 20 mL/min/{1.73_m2} Low >60 [facility] Comment on above: Result Comment: mL/m in/1.73m2 CKD-EPI Creatinine Equation (2020) Performed By: #### L 500.2500, L501.4021, L100.0100, L300.3900, L300.4310 ####[facility] [address] [place], [address] Glucose [Mass/Vol] 328 mg/dL High 70-99 [facility] Comment on above: Performed By: #### L 500.2500, L501.4021, L100.0100, L300.3900, L300.4310 ####[facility] [address] [place], [address] Potassium [Moles/Vol] 4.4 mmol/L Normal 3.3-5.1 [facility] Comment on above: Performed By: #### L 500.2500, L501.4021, L100.0100, L300.3900, L300.4310 ####[facility] [address] [place], [address] Sodium [Moles/Vol] 135 mmol/L Normal 133-145 [facility] Comment on above: Performed By: #### L 500.2500, L501.4021, L100.0100, L300.3900, L300.4310 ####[facility] [address] [place], [address] Urea nitrogen [Mass/Vol] 45 mg/dL High 4-19 [facility] Comment on above: Performed By: #### L 500.2500, L501.4021, L100.0100, L300.3900, L300.4310 ####[facility] [address] [place], [address] Basophil percentageOrdered B y: Isael Bernabe on 11-30-2024 Basophils/100 WBC (Bld) 0.2 % 0-1 [facility] Bedside Glucoseon 11-30-2024 FINGERSTICK GLU 167 mg/dL High 74-106 [facility] Comment on above: Result Comment: WILDA BARROSO OF PATIENT CARE PER NURSING PROTOCOL Performed By: #### L 501.080 ####[facility] [address] [place], [address] CBC W/Diff, Automatedon 11-02 Absolute Lymph 1.93 X10 3/uL Normal 0.83-4.51 [facility] Comment on above: Performed By: #### L 500.2500, L501.4021, L100.0100, L300.3900, L300.4310 ####[facility] [address] [place], [address] Absolute Neut 15.5 X10 3/uL High 2.0-7.7 [facility] Comment on above: Performed By: #### L 500.2500, L501.4021, L100.0100, L300.3900, L300.4310 ####[facility] [address] [place], [address] Basophils/100 WBC (Bld) 0.2 % Normal 0-1 [facility] Comment on above: Performed By: #### L 500.2500, L501.4021, L100.0100, L300.3900, L300.4310 ####[facility] [address] [place], [address] Eosinophils/100 WBC (Bld) 0.4 % Normal 0-5 [facility] Comment on above: Performed By: #### L 500.2500, L501.4021, L100.0100, L300.3900, L300.4310 ####[facility] [address] [place], [address] Erythrocyte distribution width (RBC) [Ratio] 13.5 % Normal 11.6-14.6 [facility] Comment on above: Performed By: #### L 500.2500, L501.4021, L100.0100, L300.3900, L300.4310 ####[facility] [address] [place], [address] Hematocrit (Bld) [Volume fraction] 39.6 % Low 40-54 [facility] Comment on above: Performed By: #### L 500.2500, L501.4021, L100.0100, L300.3900, L300.4310 ####[facility] [address] [place], [address] Hemoglobin (Bld) [Mass/Vol] 12.5 g/dL Low 13.0-16.5 [facility] Comment on above: Performed By: #### L 500.2500, L501.4021, L100.0100, L300.3900, L300.4310 ####[facility] [address] [place], [address] IG% 0.700 Normal 0.0-0.9 [facility] Comment on above: Result Comment: IG% - Immature Granulocytes (promyelocytes, myelocytes andmetamyelocytes) > 1% indicates that a LEFT SHIFT is Present. Performed By: #### L 500.2500, L501.4021, L100.0100, L300.3900, L300.4310 ####[facility] [address] [place], [address] Lymphocytes/100 WBC (Bld) 10.1 % Low 19-41 [facility] Comment on above: Performed By: #### L 500.2500, L501.4021, L100.0100, L300.3900, L300.4310 ####[facility] [address] [place], [address] MCH (RBC) [Entitic mass] 29.3 pg Normal 27.0-32.0 [facility] Comment on above: Performed By: #### L 500.2500, L501.4021, L100.0100, L300.3900, L300.4310 ####[facility] [address] [place], [address] MCHC (RBC) [Mass/Vol] 31.6 g/dL Low 32-36 [facility] Comment on above: Performed By: #### L 500.2500, L501.4021, L100.0100, L300.3900, L300.4310 ####[facility] [address] [place], [address] MCV (RBC) [Entitic vol] 93.0 fL Normal 80-94 [facility] Comment on above: Performed By: #### L 500.2500, L501.4021, L100.0100, L300.3900, L300.4310 ####[facility] [address] [place], [address] Monocytes/100 WBC (Bld) 7.7 % Normal 0-10 [facility] Comment on above: Performed By: #### L 500.2500, L501.4021, L100.0100, L300.3900, L300.4310 ####[facility] [address] [place], [address] Neutrophils/100 WBC (Bld) 80.9 % High 47-70 [facility] Comment on above: Performed By: #### L 500.2500, L501.4021, L100.0100, L300.3900, L300.4310 ####[facility] [address] [place], [address] Nucleated RBC (Bld) [#/Vol] 0.1 10*3/uL Normal 0-5 [facility] Comment on above: Performed By: #### L 500.2500, L501.4021, L100.0100, L300.3900, L300.4310 ####[facility] [address] [place], [address] Platelet mean volume (Bld) [Entitic vol] 13.7 fL High 6.2-12.0 [facility] Comment on above: Performed By: #### L 500.2500, L501.4021, L100.0100, L300.3900, L300.4310 ####[facility] [address] [place], [address] Platelets (Bld) [#/Vol] 168 10*3/uL Normal 150-450 [facility] Comment on above: Performed By: #### L 500.2500, L501.4021, L100.0100, L300.3900, L300.4310 ####[facility] [address] [place], [address] RBC (Bld) [#/Vol] 4.26 10*6/uL Low 4.6-6.2 [facility] Comment on above: Performed By: #### L 500.2500, L501.4021, L100.0100, L300.3900, L300.4310 ####[facility] [address] [place], [address] RDW SD 45.9 fl High 35.1-43.9 [facility] Comment on above: Performed By: #### L 500.2500, L501.4021, L100.0100, L300.3900, L300.4310 ####[facility] [id number] [place], [address] WBC (Bld) [#/Vol] 19.2 10*3/uL High 4.4-11.0 [facility] Comment on above: Performed By: #### L 500.2500, L501.4021, L100.0100, L300.3900, L300.4310 ####[facility] [address] [place], [address] CBC-Complete Blood Cnt No Nila wu 11-30-2024 HCT Normal 40-54 [facility] Comment on above: Result Comment: NO S PECIMEN COLLECTED Performed By: #### L 100.0500 ####[facility] [address] [place], [address] HGB Normal 13.0-16.5 [facility] Comment on above: Result Comment: NO S PECIMEN COLLECTED Performed By: #### L 100.0500 ####[facility] [address] [place], [address] MCH Normal 27.0-32.0 [facility] Comment on above: Result Comment: NO S PECIMEN COLLECTED Performed By: #### L 100.0500 ####[facility] [address] [place], [address] MCHC Normal 32-36 [facility] Comment on above: Result Comment: NO S PECIMEN COLLECTED Performed By: #### L 100.0500 ####[facility] [address] [place], [address] MCV Normal 80-94 [facility] Comment on above: Result Comment: NO S PECIMEN COLLECTED Performed By: #### L 100.0500 ####[facility] [address] [place], [address] PLT Normal 150-450 [facility] Comment on above: Result Comment: NO S PECIMEN COLLECTED Performed By: #### L 100.0500 ####[facility] [address] [place], [address] RBC Normal 4.6-6.2 [facility] Comment on above: Result Comment: NO S PECIMEN COLLECTED Performed By: #### L 100.0500 ####[facility] [address] [place], [address] RDW CV Normal 11.6-14.6 [facility] Comment on above: Result Comment: NO S PECIMEN COLLECTED Performed By: #### L 100.0500 ####[facility] [address] [place], [address] RDW SD Normal 35.1-43.9 [facility] Comment on above: Result Comment: NO S PECIMEN COLLECTED Performed By: #### L 100.0500 ####[facility] [address] [place], [address] WBC Normal 4.4-11.0 [facility] Comment on above: Result Comment: NO S PECIMEN COLLECTED Performed By: #### L 100.0500 ####[facility] [address] [place], [address] Carbon dioxide, total [Moles /volume] in Central venous bloodOrdered By: Isael Bernabe on 11-30-2024 CO2 [Moles/Vol] 18.3 mmol/L Low 21.0-32.0 [facility] Chest 1 View (Portable)on Chest 1 View (Portable) Normal [facility] Chloride assayOrdered By: Jaylen Bernabe on 11-30-2024 Chloride [Moles/Vol] 98 mmol/L 98-108 [facility] Consultation - Cardiologyon 11-30-2024 Consultation - Cardiology Normal [facility] Emergency Department Summary on 11-30-2024 Emergency Department Summary Normal [facility] Eosinophil percentageOrdered By: Isael Bernabe on 11-30-2024 Eosinophils/100 WBC (Bld) 0.4 % 0-5 [facility] Erythrocyte distribution wid th ratioOrdered By: Isael Bernabe on 11-30-2024 Erythrocyte distribution width (RBC) [Ratio] 13.5 % 11.6-14.6 [facility] Erythrocyte distribution wid th standard deviationOrdered By: Isael Bernabe on 11-30-2024 Erythrocyte distribution width (RBC) [Ratio] 45.9 fl High 35.1-43.9 [facility] Glomerular filtration rate ( GFR) estimation/1.73 sq m using serum, plasma, or whole bOrdered By: Isael Bernabe on 11-30-2024 GFR/1.73 sq M.predicted among non-blacks MDRD (S/P/Bld) [Vol rate/Area] 20 mL/min/{1.73_m2} Low >60 [facility] H AND P Exam - Hospitaliston 11-30-2024 H&P Exam - Hospitalist Normal [facility] Hematocrit Auto (Bld) [Volum e fraction]Ordered By: Isael Bernabe on 11-30-2024 Hematocrit (Bld) [Volume fraction] 39.6 % Low 40-54 [facility] Hemoglobin A1con 11-30-2024 HbA1c (Bld) [Mass fraction] 7.0 % High <=5.6 [facility] Comment on above: Result Comment: Norm al < 5.7 % Prediabetic 5.7 - 6.4 % Diabetic >or= 6.5 % Please note range changes. Performed By: #### L 501.9985 ####[facility] [address] [place], [address] Hemoglobin A1c percentageOrd ered By: Abraham Ridley on 11-30-2024 HbA1c (Bld) [Mass fraction] 7.0 % High <5.7 [facility] Hemoglobin measurementOrdere d By: Isael Bernbae on 11-30-2024 Hemoglobin (Bld) [Mass/Vol] 12.5 g/dL Low 13.0-16.5 [facility] Immature granulocytes/100 WB C Auto (Bld)Ordered By: Isael Bernabe on 11-30-2024 Immature granulocytes/100 WBC (Bld) 0.700 % 0.0-0.9 [facility] L501.4021on 11-30-2024 Trop T High Sen 61 ng/L Invalid Interpretation Code <=22 [facility] Comment on above: Result Comment: Crit ical Result(s) Called at: 1621 by: MOISE MEDINA??Results read back by same. Performed By: #### L 500.2500, L501.4021, L100.0100, L300.3900, L300.4310 ####[facility] [address] [place], [place], [id number] MCV (mean corpuscular volume ) determinationOrdered By: Isael Bernabe on 11-30-2024 MCV (RBC) [Entitic vol] 93.0 fL 80-94 [facility] MR/QUALITYon 11-30-2024 MR/QUALITY Normal [facility] Mean corpuscular hemoglobin (MCH) determinationOrdered By: Isael Bernabe on 11-30-2024 MCH (RBC) [Entitic mass] 29.3 pg 27.0-32.0 [facility] Monocyte percentageOrdered B y: Isael Bernabe on 11-30-2024 Monocytes/100 WBC (Bld) 7.7 % 0-10 [facility] Neutrophil percentageOrdered By: Isael Bernabe on 11-30-2024 Neutrophils/100 WBC (Bld) 80.9 % High 47-70 [facility] Partial Thromboplast Timeon 11-30-2024 aPTT Coag (Bld) [Time] 112.9 s Invalid Interpretation Code 24.1-36.2 [facility] Comment on above: Result Comment: CRIT ICAL VALUE CALLED TO CAITLIN ANTOINE11/30/24 1720 Krysta Turcios.RESULTS READ BACK BY SAME. Performed By: #### L 500.2500, L501.4021, L100.0100, L300.3900, L300.4310 ####[facility] [address] [place], [place], [id number] Platelet countOrdered By: Jaylen Bernabe on 11-30-2024 Platelets (Bld) [#/Vol] 168 10*3/uL 150-450 [facility] Potassium measurement (mass/ volume)Ordered By: sIael Bernabe on 11-30-2024 Potassium (Unsp spec) [Mass/Vol] 4.4 mmol/L 3.3-5.1 [facility] Prothrombin Time w/INRon INR Coag (PPP) [Relative time] 1.3 {INR} Normal [facility] Comment on above: Performed By: #### L 500.2500, L501.4021, L100.0100, L300.3900, L300.4310 ####[facility] [address] [place], [address] PT Coag (PPP) [Time] 16.1 s High 11.7-14.9 [facility] Comment on above: Performed By: #### L 500.2500, L501.4021, L100.0100, L300.3900, L300.4310 ####[facility] [address] [place], [address] Prothrombin timeOrdered By: Isael Bernabe on 11-30-2024 PT Coag (PPP) [Time] 16.1 s High 11.7-14.9 [facility] RBC Auto (Bld) [#/Vol]Ordere d By: Isael Bernabe on 11-30-2024 RBC (Bld) [#/Vol] 4.26 10*6/uL Low 4.6-6.2 [facility] Serum creatinine measurement (mass/volume)Ordered By: Isael Bernabe on 11-30-2024 Creatinine [Mass/Vol] 3.10 mg/dL High 0.70-1.20 [facility] Serum glucose measurement (m ass/volume)Ordered By: Isael Bernabe on 11-30-2024 Glucose [Mass/Vol] 328 mg/dL High 70-99 [facility] Serum or plasma calcium francine urement (mass/volume)Ordered By: Isael Bernabe on 11-30-2024 Calcium [Mass/Vol] 9.5 mg/dL 7.6-11.0 [facility] Serum or plasma urea nitroge n measurement (mass/volume)Ordered By: Isael Bernabe on 11-30-2024 Urea nitrogen [Mass/Vol] 45 mg/dL High 4-19 [facility] Sodium levelOrdered By: Isael Bernabe on 11-30-2024 Sodium [Moles/Vol] 135 mmol/L 133-145 [facility] Troponin T HS 2 HRon 025 Trop T High Sen Normal <=22 [facility] Comment on above: Result Comment: Canc elled via OM: MD Ordered Performed By: #### L 499.0042 ####[facility] [address] [place], [place], [id number] Troponin T HS 4 HRon 025 Trop T High Sen Normal <=22 [facility] Comment on above: Result Comment: Canc elled via OM: MD Ordered Performed By: #### L 499.0043 ####[facility] [address] [place], [address] Troponin T.cardiac [Mass/vol ume] in Serum or Plasma by High sensitivity methodOrdered By: Isael Bernabe on 11-30-2024 Troponin T.cardiac High sensitivity method [Mass/Vol] 61 ng/L High <22 [facility] White blood cell (WBC) count Ordered By: Isael Bernabe on 11-30-2024 WBC (Bld) [#/Vol] 19.2 10*3/uL High 4.4-11.0 [facility] ACT Activated Clotting Timeo n 11-28-2024 ACTk CLOT TIME 205 sec High 74-137 [facility] Comment on above: Performed By: #### L 9100.0100 ####[facility] [address] [place], [place], [id number] ACTk CLOT TIME 227 sec High 74-137 [facility] Comment on above: Performed By: #### L 9100.0100 ####[facility] [address] [place], [place], [address] Anion gap in Serum or Plasma Ordered By: Jose Hay on 11-28-2024 Anion gap [Moles/Vol] 13 mmol/L 5-15 [facility] BUN/creatinine ratioOrdered By: Jose Hay on 11-28-2024 Urea nitrogen/Creatinine [Mass ratio] 15.2 mg/mg 10-20 [facility] Bilirubin, totalOrdered By: Jose Hay on 11-28-2024 Bilirubin [Mass/Vol] 0.78 mg/dL 0.00-1.30 [facility] CBC-Complete Blood Cnt No Nila ffon 11-28-2024 Erythrocyte distribution width (RBC) [Ratio] 13.6 % Normal 11.6-14.6 [facility] Comment on above: Performed By: #### L 100.0500, L500.4050 ####[facility] [address] [place], [address] Hematocrit (Bld) [Volume fraction] 35.3 % Low 40-54 [facility] Comment on above: Performed By: #### L 100.0500, L500.4050 ####[facility] [address] [place], [address] Hemoglobin (Bld) [Mass/Vol] 11.3 g/dL Low 13.0-16.5 [facility] Comment on above: Performed By: #### L 100.0500, L500.4050 ####[facility] [address] [place], [address] MCH (RBC) [Entitic mass] 29.4 pg Normal 27.0-32.0 [facility] Comment on above: Performed By: #### L 100.0500, L500.4050 ####[facility] [address] [place], [address] MCHC (RBC) [Mass/Vol] 32.0 g/dL Normal 32-36 [facility] Comment on above: Performed By: #### L 100.0500, L500.4050 ####[facility] [address] [place], [address] MCV (RBC) [Entitic vol] 91.7 fL Normal 80-94 [facility] Comment on above: Performed By: #### L 100.0500, L500.4050 ####[facility] [address] [place], [address] Platelet mean volume (Bld) [Entitic vol] 12.6 fL High 6.2-12.0 [facility] Comment on above: Performed By: #### L 100.0500, L500.4050 ####[facility] [address] [place], [address] Platelets (Bld) [#/Vol] 108 10*3/uL Low 150-450 [facility] Comment on above: Performed By: #### L 100.0500, L500.4050 ####[facility] [address] [place], [address] RBC (Bld) [#/Vol] 3.85 10*6/uL Low 4.6-6.2 [facility] Comment on above: Performed By: #### L 100.0500, L500.4050 ####[facility] [address] [place], [address] RDW SD 46.1 fl High 35.1-43.9 [facility] Comment on above: Performed By: #### L 100.0500, L500.4050 ####[facility] [address] [place], [address] WBC (Bld) [#/Vol] 7.1 10*3/uL Normal 4.4-11.0 [facility] Comment on above: Performed By: #### L 100.0500, L500.4050 ####[facility] [address] [place], [address] Carbon dioxide, total [Moles /volume] in Central venous bloodOrdered By: Jose Hay on 11-28-2024 CO2 [Moles/Vol] 23.7 mmol/L 21.0-32.0 [facility] Chloride assayOrdered By: Harsh Hay on 11-28-2024 Chloride [Moles/Vol] 102 mmol/L 98-108 [facility] Comprehensive Metabolic Prof ilon 11-28-2024 Albumin [Mass/Vol] 3.8 g/dL Normal 3.4-4.8 [facility] Comment on above: Performed By: #### L 100.0500, L500.4050 ####[facility] [address] [place], [address] Albumin/Globulin [Mass ratio] 1.4 {ratio} Normal 0.9-2.4 [facility] Comment on above: Performed By: #### L 100.0500, L500.4050 ####[facility] [address] [place], [address] ALK PHOS 93 U/L Normal 40-129 [facility] Comment on above: Performed By: #### L 100.0500, L500.4050 ####[facility] [address] [place], [address] ALT [Catalytic activity/Vol] 27 U/L Normal <=46 [facility] Comment on above: Result Comment: Hemo lysis present, Results??could be affected.?? Performed By: #### L 100.0500, L500.4050 ####[facility] [address] [place], [address] AST [Catalytic activity/Vol] 33 U/L Normal <=37 [facility] Comment on above: Result Comment: Hemo lysis present, Results??could be affected.?? Performed By: #### L 100.0500, L500.4050 ####[facility] [address] [place], [address] Bilirubin [Mass/Vol] 0.78 mg/dL Normal 0.00-1.30 [facility] Comment on above: Performed By: #### L 100.0500, L500.4050 ####[facility] [address] [place], [address] BUN/CRE 15.2 RATIO Normal 10-20 [facility] Comment on above: Performed By: #### L 100.0500, L500.4050 ####[facility] [address] [place], [address] Calcium [Mass/Vol] 9.2 mg/dL Normal 7.6-11.0 [facility] Comment on above: Performed By: #### L 100.0500, L500.4050 ####[facility] [address] [place], [address] Chloride [Moles/Vol] 102 mmol/L Normal 98-108 [facility] Comment on above: Performed By: #### L 100.0500, L500.4050 ####[facility] [address] [place], [address] CO2 [Moles/Vol] 23.7 mmol/L Normal 21.0-32.0 [facility] Comment on above: Performed By: #### L 100.0500, L500.4050 ####[facility] [address] [place], [address] Creatinine [Mass/Vol] 1.93 mg/dL High 0.70-1.20 [facility] Comment on above: Performed By: #### L 100.0500, L500.4050 ####[facility] [address] [place], [address] ECRCL 37.66 ml/min Low 50-250 [facility] Comment on above: Performed By: #### L 100.0500, L500.4050 ####[facility] [address] [place], [address] GAP 13 Normal 5-15 [facility] Comment on above: Performed By: #### L 100.0500, L500.4050 ####[facility] [address] [place], [address] GFR/1.73 sq M.predicted among non-blacks MDRD (S/P/Bld) [Vol rate/Area] 35 mL/min/{1.73_m2} Low >60 [facility] Comment on above: Result Comment: mL/m in/1.73m2 CKD-EPI Creatinine Equation (2020) Performed By: #### L 100.0500, L500.4050 ####[facility] [address] [place], [address] Globulin (S) [Mass/Vol] 2.8 g/dL Normal 2.2-4.2 [facility] Comment on above: Performed By: #### L 100.0500, L500.4050 ####[facility] [address] [place] [place], [address] Glucose [Mass/Vol] 130 mg/dL High 70-99 [facility] Comment on above: Performed By: #### L 100.0500, L500.4050 ####[facility] [address] [place], [address] Potassium [Moles/Vol] 4.4 mmol/L Normal 3.3-5.1 [facility] Comment on above: Result Comment: Hemo lysis present, Results??could be affected.?? Performed By: #### L 100.0500, L500.4050 ####[facility] [address] [place], [address] Sodium [Moles/Vol] 139 mmol/L Normal 133-145 [facility] Comment on above: Performed By: #### L 100.0500, L500.4050 ####[facility] [address] [place], [address] T PROT 6.6 g/dL Normal 5.9-8.4 [facility] Comment on above: Performed By: #### L 100.0500, L500.4050 ####[facility] [address] [place], [address] Urea nitrogen [Mass/Vol] 29 mg/dL High 4-19 [facility] Comment on above: Performed By: #### L 100.4380, L500.4050 ####[facility] [address] [place], [address] Erythrocyte distribution wid th ratioOrdered By: Josejina Hay on 11-28-2024 Erythrocyte distribution width (RBC) [Ratio] 13.6 % 11.6-14.6 [facility] Erythrocyte distribution wid th standard deviationOrdered By: Jose Hay on 11-28-2024 Erythrocyte distribution width (RBC) [Ratio] 46.1 fl High 35.1-43.9 [facility] Glomerular filtration rate ( GFR) estimation/1.73 sq m using serum, plasma, or whole bOrdered By: Jose Hay on 11-28-2024 GFR/1.73 sq M.predicted among non-blacks MDRD (S/P/Bld) [Vol rate/Area] 35 mL/min/{1.73_m2} Low >60 [facility] Hematocrit Auto (Bld) [Volum e fraction]Ordered By: Josejina Hay on 11-28-2024 Hematocrit (Bld) [Volume fraction] 35.3 % Low 40-54 [facility] Hemoglobin measurementOrdere d By: Jose Hay on 11-28-2024 Hemoglobin (Bld) [Mass/Vol] 11.3 g/dL Low 13.0-16.5 [facility] MCV (mean corpuscular volume ) determinationOrdered By: Jose Hay 11-28-2024 MCV (RBC) [Entitic vol] 91.7 fL 80-94 [facility] Mean corpuscular hemoglobin (MCH) determinationOrdered By: Josejina Hay on 11-28-2024 MCH (RBC) [Entitic mass] 29.4 pg 27.0-32.0 [facility] No Panel InformationOrdered By: Jose Hay on 11-28-2024 33 U/L <38 [facility] Platelet countOrdered By: Harsh Hay on 11-28-2024 Platelets (Bld) [#/Vol] 108 10*3/uL Low 150-450 [facility] Potassium measurement (mass/ volume)Ordered By: Jose Hay on 11-28-2024 Potassium (Unsp spec) [Mass/Vol] 4.4 mmol/L 3.3-5.1 [facility] RBC Auto (Bld) [#/Vol]Ordere d By: Jose Hay on 11-28-2024 RBC (Bld) [#/Vol] 3.85 10*6/uL Low 4.6-6.2 [facility] Serum creatinine measurement (mass/volume)Ordered By: Jose Hay on 11-28-2024 Creatinine [Mass/Vol] 1.93 mg/dL High 0.70-1.20 [facility] Serum globulin measurementOr dered By: Jose Hay on 11-28-2024 Globulin (S) [Mass/Vol] 2.8 g/dL 2.2-4.2 [facility] Serum glucose measurement (m ass/volume)Ordered By: Jose Hay on 11-28-2024 Glucose [Mass/Vol] 130 mg/dL High 70-99 [facility] Serum or plasma alanine guerrero otransferase (ALT) measurementOrdered By: Jose Hay on 11-28-2024 ALT [Catalytic activity/Vol] 27 U/L <47 [facility] Serum or plasma albumin francine urement (mass/volume)Ordered By: Jose aHy on 11-28-2024 Albumin [Mass/Vol] 3.8 g/dL 3.4-4.8 [facility] Serum or plasma albumin/glob ulin mass ratioOrdered By: Jose Hay on 11-28-2024 Albumin/Globulin [Mass ratio] 1.4 {ratio} 0.9-2.4 [facility] Serum or plasma alkaline bell sphatase measurementOrdered By: Jose Hay 11-28-2024 ALP [Catalytic activity/Vol] 93 U/L 40-129 [facility] Serum or plasma calcium francine urement (mass/volume)Ordered By: Jose Hay on 11-28-2024 Calcium [Mass/Vol] 9.2 mg/dL 7.6-11.0 [facility] Serum or plasma urea nitroge n measurement (mass/volume)Ordered By: Jose Hay on 11-28-2024 Urea nitrogen [Mass/Vol] 29 mg/dL High 4-19 [facility] Sodium levelOrdered By: Ernst Hay on 11-28-2024 Sodium [Moles/Vol] 139 mmol/L 133-145 [facility] Total proteinOrdered By: Emmanuel Hay on 11-28-2024 Protein [Mass/Vol] 6.6 g/dL 5.9-8.4 [facility] White blood cell (WBC) count Ordered By: Jose Hay on 11-28-2024 WBC (Bld) [#/Vol] 7.1 10*3/uL 4.4-11.0 [facility] 12 Lead EKGon 11-27-2024 12 Lead EKG Normal [facility] Cardiac rehabilitation repor tOrdered By: Karrie Arceo on 11-27-2024 Study report [facility] Discharge Instructionon - Discharge Instruction Normal [facility] 12 Lead EKGon 11-26-2024 12 Lead EKG Normal [facility] Absolute lymphocyte countOrd ered By: Isael Bernabe on 11-26-2024 Lymphocytes Auto (Unsp spec) [#/Vol] 1.53 10*3/uL 0.83-4.51 [facility] Anion gap in Serum or Plasma Ordered By: Isael Bernabe on 11-26-2024 Anion gap [Moles/Vol] 15 mmol/L 5-15 [facility] Automated lymphocyte count a s percentage of total leukocytesOrdered By: Isael Bernabe on 11-26-2024 Lymphocytes/100 WBC Auto (Unsp spec) 16.7 % Low 19-41 [facility] BUN/creatinine ratioOrdered By: Isael Bernabe on 11-26-2024 Urea nitrogen/Creatinine [Mass ratio] 18.2 mg/mg 10- [facility] Basic Metabolic Profile (BMP )on 11-26-2024 BUN/CRE 18.2 RATIO Normal - [facility] Comment on above: Performed By: #### L 500.2500, L501.4021, L503.7505, L100.0100 ####[facility] [address] [place], [address] Calcium [Mass/Vol] 9.2 mg/dL Normal 7.6-11.0 [facility] Comment on above: Performed By: #### L 500.2500, L501.4021, L503.7505, L100.0100 ####[facility] [address] [place], [address] Chloride [Moles/Vol] 100 mmol/L Normal 98-108 [facility] Comment on above: Performed By: #### L 500.2500, L501.4021, L503.7505, L100.0100 ####[facility] [address] [place], [address] CO2 [Moles/Vol] 21.5 mmol/L Normal 21.0-32.0 [facility] Comment on above: Performed By: #### L 500.2500, L501.4021, L503.7505, L100.0100 ####[facility] [address] [place], [address] Creatinine [Mass/Vol] 2.34 mg/dL High 0.70-1.20 [facility] Comment on above: Performed By: #### L 500.2500, L501.4021, L503.7505, L100.0100 ####[facility] [address] [place], [address] ECRCL 31.97 ml/min Low 50-250 [facility] Comment on above: Performed By: #### L 500.2500, L501.4021, L503.7505, L100.0100 ####[facility] [address] [place], [address] GAP 15 Normal 5-15 [facility] Comment on above: Performed By: #### L 500.2500, L501.4021, L503.7505, L100.0100 ####[facility] [address] [place], [address] GFR/1.73 sq M.predicted among non-blacks MDRD (S/P/Bld) [Vol rate/Area] 28 mL/min/{1.73_m2} Low >60 [facility] Comment on above: Result Comment: mL/m in/1.73m2 CKD-EPI Creatinine Equation (2020) Performed By: #### L 500.2500, L501.4021, L503.7505, L100.0100 ####[facility] [address] [place], [address] Glucose [Mass/Vol] 275 mg/dL High 70-99 [facility] Comment on above: Performed By: #### L 500.2500, L501.4021, L503.7505, L100.0100 ####[facility] [address] [place], [address] Potassium [Moles/Vol] 4.4 mmol/L Normal 3.3-5.1 [facility] Comment on above: Performed By: #### L 500.2500, L501.4021, L503.7505, L100.0100 ####[facility] [address] [place], [address] Sodium [Moles/Vol] 137 mmol/L Normal 133-145 [facility] Comment on above: Performed By: #### L 500.2500, L501.4021, L503.7505, L100.0100 ####[facility] [address] [place], [address] Urea nitrogen [Mass/Vol] 43 mg/dL High 4-19 [facility] Comment on above: Performed By: #### L 500.2500, L501.4021, L503.7505, L100.0100 ####[facility] [address] [place], [address] Basophil percentageOrdered B y: Iasel Bernabe on 11-26-2024 Basophils/100 WBC (Bld) 0.3 % 0-1 [facility] Brain/Head without Contrasto n 11-26-2024 Brain/Head without Contrast Normal [facility] CBC W/Diff, Automatedon 11-01 Absolute Lymph 1.53 X10 3/uL Normal 0.83-4.51 [facility] Comment on above: Performed By: #### L 500.2500, L501.4021, L503.7505, L100.0100 ####[facility] [address] [place], [address] Absolute Neut 6.6 X10 3/uL Normal 2.0-7.7 [facility] Comment on above: Performed By: #### L 500.2500, L501.4021, L503.7505, L100.0100 ####[facility] [address] [place], [address] Basophils/100 WBC (Bld) 0.3 % Normal 0-1 [facility] Comment on above: Performed By: #### L 500.2500, L501.4021, L503.7505, L100.0100 ####[facility] [address] [place], [address] Eosinophils/100 WBC (Bld) 1.3 % Normal 0-5 [facility] Comment on above: Performed By: #### L 500.2500, L501.4021, L503.7505, L100.0100 ####[facility] [address] [place], [address] Erythrocyte distribution width (RBC) [Ratio] 13.9 % Normal 11.6-14.6 [facility] Comment on above: Performed By: #### L 500.2500, L501.4021, L503.7505, L100.0100 ####[facility] [address] [place], [address] Hematocrit (Bld) [Volume fraction] 36.7 % Low 40-54 [facility] Comment on above: Performed By: #### L 500.2500, L501.4021, L503.7505, L100.0100 ####[facility] [address] [place], [address] Hemoglobin (Bld) [Mass/Vol] 11.8 g/dL Low 13.0-16.5 [facility] Comment on above: Performed By: #### L 500.2500, L501.4021, L503.7505, L100.0100 ####[facility] [address] [place], [address] IG% 0.400 Normal 0.0-0.9 [facility] Comment on above: Result Comment: IG% - Immature Granulocytes (promyelocytes, myelocytes andmetamyelocytes) > 1% indicates that a LEFT SHIFT is Present. Performed By: #### L 500.2500, L501.4021, L503.7505, L100.0100 ####[facility] [address] [place], [address] Lymphocytes/100 WBC (Bld) 16.7 % Low 19-41 [facility] Comment on above: Performed By: #### L 500.2500, L501.4021, L503.7505, L100.0100 ####[facility] [address] [place], [address] MCH (RBC) [Entitic mass] 29.2 pg Normal 27.0-32.0 [facility] Comment on above: Performed By: #### L 500.2500, L501.4021, L503.7505, L100.0100 ####[facility] [address] [place], [address] MCHC (RBC) [Mass/Vol] 32.2 g/dL Normal 32-36 [facility] Comment on above: Performed By: #### L 500.2500, L501.4021, L503.7505, L100.0100 ####[facility] [address] [place], [address] MCV (RBC) [Entitic vol] 90.8 fL Normal 80-94 [facility] Comment on above: Performed By: #### L 500.2500, L501.4021, L503.7505, L100.0100 ####[facility] [address] [place], [address] Monocytes/100 WBC (Bld) 9.5 % Normal 0-10 [facility] Comment on above: Performed By: #### L 500.2500, L501.4021, L503.7505, L100.0100 ####[facility] [address] [place], [address] Neutrophils/100 WBC (Bld) 71.8 % High 47-70 [facility] Comment on above: Performed By: #### L 500.2500, L501.4021, L503.7505, L100.0100 ####[facility] [address] [place], [address] Nucleated RBC (Bld) [#/Vol] 0 10*3/uL Normal 0-5 [facility] Comment on above: Performed By: #### L 500.2500, L501.4021, L503.7505, L100.0100 ####[facility] [address] [place], [address] Platelet mean volume (Bld) [Entitic vol] 12.8 fL High 6.2-12.0 [facility] Comment on above: Performed By: #### L 500.2500, L501.4021, L503.7505, L100.0100 ####[facility] [address] [place], [address] Platelets (Bld) [#/Vol] 132 10*3/uL Low 150-450 [facility] Comment on above: Performed By: #### L 500.2500, L501.4021, L503.7505, L100.0100 ####[facility] [address] [place], [address] RBC (Bld) [#/Vol] 4.04 10*6/uL Low 4.6-6.2 [facility] Comment on above: Performed By: #### L 500.2500, L501.4021, L503.7505, L100.0100 ####[facility] [address] [place], [address] RDW SD 46.6 fl High 35.1-43.9 [facility] Comment on above: Performed By: #### L 500.2500, L501.4021, L503.7505, L100.0100 ####[facility] [address] [place], [address] WBC (Bld) [#/Vol] 9.2 10*3/uL Normal 4.4-11.0 [facility] Comment on above: Performed By: #### L 500.2500, L501.4021, L503.7505, L100.0100 ####[facility] [address] [place], [address] Carbon dioxide, total [Moles /volume] in Central venous bloodOrdered By: Isael Bernabe on 11-26-2024 CO2 [Moles/Vol] 21.5 mmol/L 21.0-32.0 [facility] Chest 1 View (Portable)on Chest 1 View (Portable) Normal [facility] Chloride assayOrdered By: Jaylen Bernabe on 11-26-2024 Chloride [Moles/Vol] 100 mmol/L 98-108 [facility] Emergency Department Summary on 11-26-2024 Emergency Department Summary Normal [facility] Eosinophil percentageOrdered By: Isael Bernabe on 11-26-2024 Eosinophils/100 WBC (Bld) 1.3 % 0-5 [facility] Erythrocyte distribution wid th ratioOrdered By: Isael Bernabe on 11-26-2024 Erythrocyte distribution width (RBC) [Ratio] 13.9 % 11.6-14.6 [facility] Erythrocyte distribution wid th standard deviationOrdered By: Isael Bernabe on 11-26-2024 Erythrocyte distribution width (RBC) [Ratio] 46.6 fl High 35.1-43.9 [facility] Glomerular filtration rate ( GFR) estimation/1.73 sq m using serum, plasma, or whole bOrdered By: Isael Bernabe on 11-26-2024 GFR/1.73 sq M.predicted among non-blacks MDRD (S/P/Bld) [Vol rate/Area] 28 mL/min/{1.73_m2} Low >60 [facility] Hand Min 3 Viewson Hand Min 3 Views Normal [facility] Hematocrit Auto (Bld) [Volum e fraction]Ordered By: Isael Bernabe on 11-26-2024 Hematocrit (Bld) [Volume fraction] 36.7 % Low 40-54 [facility] Hemoglobin measurementOrdere d By: Isael Bernabe on 11-26-2024 Hemoglobin (Bld) [Mass/Vol] 11.8 g/dL Low 13.0-16.5 [facility] Immature granulocytes/100 WB C Auto (Bld)Ordered By: Isael Bernabe on 11-26-2024 Immature granulocytes/100 WBC (Bld) 0.400 % 0.0-0.9 [facility] Knee 4 or More Viewson 11-26 Knee 4 or More Views Normal [facility] Knee 4 or More Views Normal [facility] L501.4021on 11-26-2024 Trop T High Sen 18 ng/L Normal <=22 [facility] Comment on above: Performed By: #### L 500.2500, L501.4021, L503.7505, L100.0100 ####[facility] [address] [place], [place], [id number] MCV (mean corpuscular volume ) determinationOrdered By: Isael Bernabe on 11-26-2024 MCV (RBC) [Entitic vol] 90.8 fL 80-94 [facility] Mean corpuscular hemoglobin (MCH) determinationOrdered By: Isael Bernabe on 11-26-2024 MCH (RBC) [Entitic mass] 29.2 pg 27.0-32.0 [facility] Monocyte percentageOrdered B y: Isael Bernabe on 11-26-2024 Monocytes/100 WBC (Bld) 9.5 % 0-10 [facility] Natriuretic peptide.B prohor efrem N-Terminal [Mass/volume] in Serum or PlasmaOrdered By: Isael Bernabe on 11-26-2024 Natriuretic peptide.B prohormone N-Terminal [Mass/Vol] 162 pg/mL <1800 [facility] Neutrophil percentageOrdered By: Isael Bernabe on 11-26-2024 Neutrophils/100 WBC (Bld) 71.8 % High 47-70 [facility] Platelet countOrdered By: Jaylen Bernabe on 11-26-2024 Platelets (Bld) [#/Vol] 132 10*3/uL Low 150-450 [facility] Potassium measurement (mass/ volume)Ordered By: Isael Bernabe on 11-26-2024 Potassium (Unsp spec) [Mass/Vol] 4.4 mmol/L 3.3-5.1 [facility] Pro- Brain NATRIURETIC PEPTI Sharon 11-26-2024 Natriuretic peptide B (Bld) [Mass/Vol] 162 pg/mL Normal <=1800 [facility] Comment on above: Result Comment: Hear t Failure Unlikely: < 300 pg/mLHeart Failure Likely< 50 Years: > 450 pg/mL50-75 Years: > 900 pg/mL>75 Years: > 1800 pg/mL Performed By: #### L 500.2500, L501.4021, L503.7505, L100.0100 ####[facility] [address] [place], [place], [address] RBC Auto (Bld) [#/Vol]Ordere d By: Isael Bernabe on 11-26-2024 RBC (Bld) [#/Vol] 4.04 10*6/uL Low 4.6-6.2 [facility] Serum creatinine measurement (mass/volume)Ordered By: Isael Bernabe on 11-26-2024 Creatinine [Mass/Vol] 2.34 mg/dL High 0.70-1.20 [facility] Serum glucose measurement (m ass/volume)Ordered By: Isael Bernabe on 11-26-2024 Glucose [Mass/Vol] 275 mg/dL High 70-99 [facility] Serum or plasma calcium francine urement (mass/volume)Ordered By: Isael Bernabe on 11-26-2024 Calcium [Mass/Vol] 9.2 mg/dL 7.6-11.0 [facility] Serum or plasma urea nitroge n measurement (mass/volume)Ordered By: Isael Bernabe on 11-26-2024 Urea nitrogen [Mass/Vol] 43 mg/dL High 4-19 [facility] Sodium levelOrdered By: Isael Bernabe on 11-26-2024 Sodium [Moles/Vol] 137 mmol/L 133-145 [facility] Spine Cervical without Contr ason 11-26-2024 Spine Cervical without Contras Normal [facility] Troponin T HS 2 HRon 025 Trop T High Sen 20 ng/L Normal <=22 [facility] Comment on above: Performed By: #### L 499.0042 ####[facility] [address] [place], [address] Troponin T HS 4 HRon 025 Trop T High Sen Normal <=22 [facility] Comment on above: Result Comment: Edy crews via OM: Order cancelled - Patient discharged Performed By: #### L 499.0043 ####[facility] [address] [place], [place], [address] Troponin T.cardiac [Mass/vol ume] in Serum or Plasma by High sensitivity methodOrdered By: Isael Bernabe on 11-26-2024 Troponin T.cardiac High sensitivity method [Mass/Vol] 20 ng/L <22 [facility] Troponin T.cardiac High sensitivity method [Mass/Vol] 18 ng/L <22 [facility] White blood cell (WBC) count Ordered By: Isael Bernabe on 11-26-2024 WBC (Bld) [#/Vol] 9.2 10*3/uL 4.4-11.0 [facility] Absolute lymphocyte countOrd ered By: Gustabo Pérez on 11-22-2024 Lymphocytes Auto (Unsp spec) [#/Vol] 1.37 10*3/uL 0.83-4.51 [facility] Anion gap in Serum or Plasma Ordered By: Gustabo Pérez on 11-22-2024 Anion gap [Moles/Vol] 15 mmol/L 5- [facility] Automated lymphocyte count a s percentage of total leukocytesOrdered By: Gustabo Pérez on 11-22-2024 Lymphocytes/100 WBC Auto (Unsp spec) 16.1 % Low 19- [facility] BUN/creatinine ratioOrdered By: Gustabo Pérez on 11-22-2024 Urea nitrogen/Creatinine [Mass ratio] 15.6 mg/mg - [facility] Basic Metabolic Profile (BMP )on 11-22-2024 BUN/CRE 15.6 RATIO Normal - [facility] Comment on above: Performed By: #### L 100.0100, L500.2500, L503.7505 ####[facility] [address] [place], [address] Calcium [Mass/Vol] 9.1 mg/dL Normal 7.6-11.0 [facility] Comment on above: Performed By: #### L 100.0100, L500.2500, L503.7505 ####[facility] [address] [place], [address] Chloride [Moles/Vol] 102 mmol/L Normal 98-108 [facility] Comment on above: Performed By: #### L 100.0100, L500.2500, L503.7505 ####[facility] [address] [place], [address] CO2 [Moles/Vol] 21.6 mmol/L Normal 21.0-32.0 [facility] Comment on above: Performed By: #### L 100.0100, L500.2500, L503.7505 ####[facility] [address] [place], [address] Creatinine [Mass/Vol] 2.51 mg/dL High 0.70-1.20 [facility] Comment on above: Performed By: #### L 100.0100, L500.2500, L503.7505 ####[facility] [address] [place], [address] GAP 15 Normal 5-15 [facility] Comment on above: Performed By: #### L 100.0100, L500.2500, L503.7505 ####[facility] [address] [place], [address] GFR/1.73 sq M.predicted among non-blacks MDRD (S/P/Bld) [Vol rate/Area] 25 mL/min/{1.73_m2} Low >60 [facility] Comment on above: Result Comment: mL/m in/1.73m2 CKD-EPI Creatinine Equation (2020) Performed By: #### L 100.0100, L500.2500, L503.7505 ####[facility] [address] [place], [address] Glucose [Mass/Vol] 262 mg/dL High 70-99 [facility] Comment on above: Performed By: #### L 100.0100, L500.2500, L503.7505 ####[facility] [address] [place], [address] Potassium [Moles/Vol] 4.8 mmol/L Normal 3.3-5.1 [facility] Comment on above: Performed By: #### L 100.0100, L500.2500, L503.7505 ####[facility] [address] [place], [address] Sodium [Moles/Vol] 139 mmol/L Normal 133-145 [facility] Comment on above: Performed By: #### L 100.0100, L500.2500, L503.7505 ####[facility] [address] [place], [address] Urea nitrogen [Mass/Vol] 39 mg/dL High 4-19 [facility] Comment on above: Performed By: #### L 100.0100, L500.2500, L503.7505 ####[facility] [address] [place], [address] Basophil percentageOrdered B y: Gustabo Pérez on 11-22-2024 Basophils/100 WBC (Bld) 0.4 % 0-1 [facility] CBC W/Diff, Automatedon 11-01 Absolute Lymph 1.37 X10 3/uL Normal 0.83-4.51 [facility] Comment on above: Performed By: #### L 100.0100, L500.2500, L503.7505 ####[facility] [address] [place], [address] Absolute Neut 6.2 X10 3/uL Normal 2.0-7.7 [facility] Comment on above: Performed By: #### L 100.0100, L500.2500, L503.7505 ####[facility] [address] [place], [address] Basophils/100 WBC (Bld) 0.4 % Normal 0-1 [facility] Comment on above: Performed By: #### L 100.0100, L500.2500, L503.7505 ####[facility] [address] [place], [address] Eosinophils/100 WBC (Bld) 1.5 % Normal 0-5 [facility] Comment on above: Performed By: #### L 100.0100, L500.2500, L503.7505 ####[facility] [address] [place], [address] Erythrocyte distribution width (RBC) [Ratio] 13.8 % Normal 11.6-14.6 [facility] Comment on above: Performed By: #### L 100.0100, L500.2500, L503.7505 ####[facility] [address] [place], [address] Hematocrit (Bld) [Volume fraction] 36.5 % Low 40-54 [facility] Comment on above: Performed By: #### L 100.0100, L500.2500, L503.7505 ####[facility] [address] [place], [address] Hemoglobin (Bld) [Mass/Vol] 11.8 g/dL Low 13.0-16.5 [facility] Comment on above: Performed By: #### L 100.0100, L500.2500, L503.7505 ####[facility] [address] [place], [address] IG% 0.500 Normal 0.0-0.9 [facility] Comment on above: Result Comment: IG% - Immature Granulocytes (promyelocytes, myelocytes andmetamyelocytes) > 1% indicates that a LEFT SHIFT is Present. Performed By: #### L 100.0100, L500.2500, L503.7505 ####[facility] [address] [place], [address] Lymphocytes/100 WBC (Bld) 16.1 % Low 19-41 [facility] Comment on above: Performed By: #### L 100.0100, L500.2500, L503.7505 ####[facility] [address] [place], [address] MCH (RBC) [Entitic mass] 29.6 pg Normal 27.0-32.0 [facility] Comment on above: Performed By: #### L 100.0100, L500.2500, L503.7505 ####[facility] [address] [place], [address] MCHC (RBC) [Mass/Vol] 32.3 g/dL Normal 32-36 [facility] Comment on above: Performed By: #### L 100.0100, L500.2500, L503.7505 ####[facility] [address] [place], [address] MCV (RBC) [Entitic vol] 91.7 fL Normal 80-94 [facility] Comment on above: Performed By: #### L 100.0100, L500.2500, L503.7505 ####[facility] [address] [place], [address] Monocytes/100 WBC (Bld) 9.0 % Normal 0-10 [facility] Comment on above: Performed By: #### L 100.0100, L500.2500, L503.7505 ####[facility] [address] [place], [address] Neutrophils/100 WBC (Bld) 72.5 % High 47-70 [facility] Comment on above: Performed By: #### L 100.0100, L500.2500, L503.7505 ####[facility] [address] [place], [address] Nucleated RBC (Bld) [#/Vol] 0 10*3/uL Normal 0-5 [facility] Comment on above: Performed By: #### L 100.0100, L500.2500, L503.7505 ####[facility] [address] [place], [address] Platelet mean volume (Bld) [Entitic vol] 13.0 fL High 6.2-12.0 [facility] Comment on above: Performed By: #### L 100.0100, L500.2500, L503.7505 ####[facility] [address] [place], [address] Platelets (Bld) [#/Vol] 148 10*3/uL Low 150-450 [facility] Comment on above: Performed By: #### L 100.0100, L500.2500, L503.7505 ####[facility] [address] [place], [address] RBC (Bld) [#/Vol] 3.98 10*6/uL Low 4.6-6.2 [facility] Comment on above: Performed By: #### L 100.0100, L500.2500, L503.7505 ####[facility] [address] [place], [address] RDW SD 47.0 fl High 35.1-43.9 [facility] Comment on above: Performed By: #### L 100.0100, L500.2500, L503.7505 ####[facility] [address] [place], [address] WBC (Bld) [#/Vol] 8.5 10*3/uL Normal 4.4-11.0 [facility] Comment on above: Performed By: #### L 100.0100, L500.2500, L503.7505 ####[facility] [address] [place], [address] Carbon dioxide, total [Moles /volume] in Central venous bloodOrdered By: Gustabo Pérez on 11-22-2024 CO2 [Moles/Vol] 21.6 mmol/L 21.0-32.0 [facility] Cardiology Visit Reporton Cardiology Visit Report Normal [facility] Chest PA and Lateralon 11-22 Chest PA and Lateral Normal [facility] Chloride assayOrdered By: Lydia Pérez on 11-22-2024 Chloride [Moles/Vol] 102 mmol/L 98-108 [facility] Eosinophil percentageOrdered By: Gustabo Pérez on 11-22-2024 Eosinophils/100 WBC (Bld) 1.5 % 0-5 [facility] Erythrocyte distribution wid th ratioOrdered By: Gustabo Pérez on 11-22-2024 Erythrocyte distribution width (RBC) [Ratio] 13.8 % 11.6-14.6 [facility] Erythrocyte distribution wid th standard deviationOrdered By: Gustabo Pérez on 11-22-2024 Erythrocyte distribution width (RBC) [Ratio] 47.0 fl High 35.1-43.9 [facility] Glomerular filtration rate ( GFR) estimation/1.73 sq m using serum, plasma, or whole bOrdered By: Gustabo Pérez on 11-22-2024 GFR/1.73 sq M.predicted among non-blacks MDRD (S/P/Bld) [Vol rate/Area] 25 mL/min/{1.73_m2} Low >60 [facility] Hematocrit Auto (Bld) [Volum e fraction]Ordered By: Gustabo Pérez on 11-22-2024 Hematocrit (Bld) [Volume fraction] 36.5 % Low 40-54 [facility] Hemoglobin measurementOrdere d By: Gustabo Pérez on 11-22-2024 Hemoglobin (Bld) [Mass/Vol] 11.8 g/dL Low 13.0-16.5 [facility] Immature granulocytes/100 WB C Auto (Bld)Ordered By: Gustabo Pérez on 11-22-2024 Immature granulocytes/100 WBC (Bld) 0.500 % 0.0-0.9 [facility] L503.7505on 11-22-2024 Natriuretic peptide B (Bld) [Mass/Vol] 188 pg/mL Normal <=1800 [facility] Comment on above: Result Comment: Hear t Failure Unlikely: < 300 pg/mLHeart Failure Likely< 50 Years: > 450 pg/mL50-75 Years: > 900 pg/mL>75 Years: > 1800 pg/mL Performed By: #### L 100.0100, L500.2500, L503.7505 ####[facility] [address] [place], [place], [id number] MCV (mean corpuscular volume ) determinationOrdered By: Gustabo Pérez on 11-22-2024 MCV (RBC) [Entitic vol] 91.7 fL 80-94 [facility] Mean corpuscular hemoglobin (MCH) determinationOrdered By: Gustabo Pérez on 11-22-2024 MCH (RBC) [Entitic mass] 29.6 pg 27.0-32.0 [facility] Monocyte percentageOrdered B y: Gustabo Pérez on 11-22-2024 Monocytes/100 WBC (Bld) 9.0 % 0-10 [facility] Natriuretic peptide.B prohor efrem N-Terminal [Mass/volume] in Serum or PlasmaOrdered By: Gustabo Pérez on 11-22-2024 Natriuretic peptide.B prohormone N-Terminal [Mass/Vol] 188 pg/mL <1800 [facility] Neutrophil percentageOrdered By: Gustabo Pérez on 11-22-2024 Neutrophils/100 WBC (Bld) 72.5 % High 47-70 [facility] Platelet countOrdered By: Lydia Pérez on 11-22-2024 Platelets (Bld) [#/Vol] 148 10*3/uL Low 150-450 [facility] Potassium measurement (mass/ volume)Ordered By: Gustabo Pérez on 11-22-2024 Potassium (Unsp spec) [Mass/Vol] 4.8 mmol/L 3.3-5.1 [facility] RBC Auto (Bld) [#/Vol]Ordere d By: Gustabo Pérez on 11-22-2024 RBC (Bld) [#/Vol] 3.98 10*6/uL Low 4.6-6.2 [facility] Serum creatinine measurement (mass/volume)Ordered By: Gustabo Pérez on 11-22-2024 Creatinine [Mass/Vol] 2.51 mg/dL High 0.70-1.20 [facility] Serum glucose measurement (m ass/volume)Ordered By: Gustabo Pérez on 11-22-2024 Glucose [Mass/Vol] 262 mg/dL High 70-99 [facility] Serum or plasma calcium francine urement (mass/volume)Ordered By: Gustabo Pérez on 11-22-2024 Calcium [Mass/Vol] 9.1 mg/dL 7.6-11.0 [facility] Serum or plasma urea nitroge n measurement (mass/volume)Ordered By: Gustabo Pérez on 11-22-2024 Urea nitrogen [Mass/Vol] 39 mg/dL High 4-19 [facility] Sodium levelOrdered By: Gustabo Pérez on 11-22-2024 Sodium [Moles/Vol] 139 mmol/L 133-145 [facility] White blood cell (WBC) count Ordered By: Gustabo Pérez on 11-22-2024 WBC (Bld) [#/Vol] 8.5 10*3/uL 4.4-11.0 [facility] Shoulder min 2 Viewson 11-20 Shoulder min 2 Views Normal [facility] Cardiovascular stress test r eportOrdered By: Jose Hay on 11-13-2024 Study report [facility] [address] [place] [address] MR#: [id number] Acct: [id number] Name: GERRY RICO Rep #: [id number] : 1945 79 From: Jose Hay MD Primary Care: Dr. 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 This note was generated with [employer] SYSTEM[employer] software. It may contain incorrectwords, spelling, and punctuation that were not noted in checking the note beforesigning. 11/13/24 1539 Date _ Jose Hay MD CC: YRN Pérez; Dr. Marycarmen Rodriguez, DO ~ Date Dictated: 11/13/241536 Date Transcribed: 11/13/241536 Molecular Biology Scientist: HARSH Signed [facility] Work Phone: Stress Reporton 11-13-2024 Stress Report Normal [facility] Echo Complete W/ Contraston 11-10-2024 Echo Complete W/ Contrast Normal [facility] Echocardiogram study reportO rdered By: Lance Rodriguez on 11-10-2024 Study report [facility] [address] [facility] [place] [address] Echo Complete W/ Contrast 11/10/24 0920 MR#: [id number] Acct: [id number] Name: GERRY RICO Rep #:[id number] : 1945 79 From: Lance Hooker Attending Dr: YRN Herr Sta tus: REG CLI Ordering Dr: Maren Olivas Driss e: 11/10/24 Location: [facility] Sex: M C Admitted: Reason For Study [...] cm2 RVDd: 3.5 cm FS: 35.7 % __ Ao root diam: 3.1 cm LAV(MOD-bp): 35.9 ml LVAd ap4: 29.2 cm2 LAV(MOD-bp) Indexed: 16.0 ml/m2 LVLd ap4: 7.5 cm LAV(MOD-sp2): 36.1 ml EDV(MOD-sp4): 91.9 ml LAV(MOD-sp4): 37.0 ml EDV(sp4-el): 96.7 ml LVAs ap4: 16.3 cm2 LVLs ap4: 5.9 cm ESV(MOD-sp4): 35.7 ml ESV(sp4-el): 38.1 ml EF(MOD-sp4): 61.2 % EF(sp4-el): 60.6 % __ SV(MOD-sp4): 56.3 ml SV(sp4-el): 58.6 ml LA A4 area: 16.1 cm2 SI(MOD-sp4): 25.1 ml/m2 __ LA dimension(2D): 3.5 cm RA A4 area: [...] Date Dictated: 11/10/24919 Date Transcribed: 11/10/24 121 Molecular Biology Scientist: Signed [facility] Absolute lymphocyte countOrd ered By: Marycarmen Rodriguez on 11-09-2024 Lymphocytes Auto (Unsp spec) [#/Vol] 1.23 10*3/uL 0.83-4.51 [facility] Absolute neutrophil countOrd ered By: Marycarmen Rodriguez on 11-09-2024 Neutrophils (Bld) [#/Vol] 4.1 10*3/uL 2.0-7.7 [facility] Anion gap in Serum or Plasma Ordered By: Marycarmen Rodriguez on 11-09-2024 Anion gap [Moles/Vol] 14 mmol/L 09-14 [facility] Automated lymphocyte count a s percentage of total leukocytesOrdered By: Marycarmen Rodriguez on 11-09-2024 Lymphocytes/100 WBC Auto (Unsp spec) 19.9 % [facility] BUN/creatinine ratioOrdered By: Marycarmen Rodriguez on 11-09-2024 Urea nitrogen/Creatinine [Mass ratio] 19.7 mg/mg 02-19 [facility] Basic Metabolic Profile (BMP )on 11-09-2024 BUN/CRE 19.7 RATIO Normal 02-19 [facility] Comment on above: Performed By: #### L 100.0100, L500.2500, L503.7505 ####[facility] [address] [place], [address] Calcium [Mass/Vol] 9.3 mg/dL Normal 7.6-11.0 [facility] Comment on above: Performed By: #### L 100.0100, L500.2500, L503.7505 ####[facility] [address] [place], [address] Chloride [Moles/Vol] 102 mmol/L Normal 98-108 [facility] Comment on above: Performed By: #### L 100.0100, L500.2500, L503.7505 ####[facility] [address] [place], [address] CO2 [Moles/Vol] 22.5 mmol/L Normal 21.0-32.0 [facility] Comment on above: Performed By: #### L 100.0100, L500.2500, L503.7505 ####[facility] [address] [place], [address] Creatinine [Mass/Vol] 2.49 mg/dL High 0.70-1.20 [facility] Comment on above: Performed By: #### L 100.0100, L500.2500, L503.7505 ####[facility] [address] [place], [address] GAP 14 Normal 5-15 [facility] Comment on above: Performed By: #### L 100.0100, L500.2500, L503.7505 ####[facility] [address] [place], [address] GFR/1.73 sq M.predicted among non-blacks MDRD (S/P/Bld) [Vol rate/Area] 26 mL/min/{1.73_m2} Low >60 [facility] Comment on above: Result Comment: mL/m in/1.73m2 CKD-EPI Creatinine Equation (2020) Performed By: #### L 100.0100, L500.2500, L503.7505 ####[facility] [address] [place], [address] Glucose [Mass/Vol] 169 mg/dL High 70-99 [facility] Comment on above: Performed By: #### L 100.0100, L500.2500, L503.7505 ####[facility] [address] [place], [address] Potassium [Moles/Vol] 4.6 mmol/L Normal 3.3-5.1 [facility] Comment on above: Performed By: #### L 100.0100, L500.2500, L503.7505 ####[facility] [address] [place], [address] Sodium [Moles/Vol] 139 mmol/L Normal 133-145 [facility] Comment on above: Performed By: #### L 100.0100, L500.2500, L503.7505 ####[facility] [address] [place], [address] Urea nitrogen [Mass/Vol] 49 mg/dL High 4-19 [facility] Comment on above: Performed By: #### L 100.0100, L500.2500, L503.7505 ####[facility] [address] [place], [address] Basophil percentageOrdered B y: Marycarmen Rodriguez on 11-09-2024 Basophils/100 WBC (Bld) 0.3 % 0-1 [facility] CBC W/Diff, Automatedon 10-31-2024 Absolute Lymph 1.23 X10 3/uL Normal 0.83-4.51 [facility] Comment on above: Performed By: #### L 100.0100, L500.2500, L503.7505 ####[facility] [address] [place], [address] Absolute Neut 4.1 X10 3/uL Normal 2.0-7.7 [facility] Comment on above: Performed By: #### L 100.0100, L500.2500, L503.7505 ####[facility] [address] [place], [address] Basophils/100 WBC (Bld) 0.3 % Normal 0-1 [facility] Comment on above: Performed By: #### L 100.0100, L500.2500, L503.7505 ####[facility] [address] [place], [address] Eosinophils/100 WBC (Bld) 2.4 % Normal 0-5 [facility] Comment on above: Performed By: #### L 100.0100, L500.2500, L503.7505 ####[facility] [address] [place], [address] Erythrocyte distribution width (RBC) [Ratio] 14.1 % Normal 11.6-14.6 [facility] Comment on above: Performed By: #### L 100.0100, L500.2500, L503.7505 ####[facility] [address] [place], [address] Hematocrit (Bld) [Volume fraction] 38.2 % Low 40-54 [facility] Comment on above: Performed By: #### L 100.0100, L500.2500, L503.7505 ####[facility] [address] [place], [address] Hemoglobin (Bld) [Mass/Vol] 12.2 g/dL Low 13.0-16.5 [facility] Comment on above: Performed By: #### L 100.0100, L500.2500, L503.7505 ####[facility] [address] [place], [address] IG% 0.500 Normal 0.0-0.9 [facility] Comment on above: Result Comment: IG% - Immature Granulocytes (promyelocytes, myelocytes andmetamyelocytes) > 1% indicates that a LEFT SHIFT is Present. Performed By: #### L 100.0100, L500.2500, L503.7505 ####[facility] [address] [place], [address] Lymphocytes/100 WBC (Bld) 19.9 % Normal 19-41 [facility] Comment on above: Performed By: #### L 100.0100, L500.2500, L503.7505 ####[facility] [address] [place], [address] MCH (RBC) [Entitic mass] 29.6 pg Normal 27.0-32.0 [facility] Comment on above: Performed By: #### L 100.0100, L500.2500, L503.7505 ####[facility] [address] [place], [address] MCHC (RBC) [Mass/Vol] 31.9 g/dL Low 32-36 [facility] Comment on above: Performed By: #### L 100.0100, L500.2500, L503.7505 ####[facility] [address] [place], [address] MCV (RBC) [Entitic vol] 92.7 fL Normal 80-94 [facility] Comment on above: Performed By: #### L 100.0100, L500.2500, L503.7505 ####[facility] [address] [place], [address] Monocytes/100 WBC (Bld) 10.4 % High 0-10 [facility] Comment on above: Performed By: #### L 100.0100, L500.2500, L503.7505 ####[facility] [address] [place], [address] Neutrophils/100 WBC (Bld) 66.5 % Normal 47-70 [facility] Comment on above: Performed By: #### L 100.0100, L500.2500, L503.7505 ####[facility] [address] [place], [address] Nucleated RBC (Bld) [#/Vol] 0 10*3/uL Normal 0-5 [facility] Comment on above: Performed By: #### L 100.0100, L500.2500, L503.7505 ####[facility] [address] [place], [address] Platelet mean volume (Bld) [Entitic vol] 12.7 fL High 6.2-12.0 [facility] Comment on above: Performed By: #### L 100.0100, L500.2500, L503.7505 ####[facility] [address] [place], [address] Platelets (Bld) [#/Vol] 120 10*3/uL Low 150-450 [facility] Comment on above: Performed By: #### L 100.0100, L500.2500, L503.7505 ####[facility] [address] [place], [address] RBC (Bld) [#/Vol] 4.12 10*6/uL Low 4.6-6.2 [facility] Comment on above: Performed By: #### L 100.0100, L500.2500, L503.7505 ####[facility] [address] [place], [address] RDW SD 47.8 fl High 35.1-43.9 [facility] Comment on above: Performed By: #### L 100.0100, L500.2500, L503.7505 ####[facility] [address] [place], [address] WBC (Bld) [#/Vol] 6.2 10*3/uL Normal 4.4-11.0 [facility] Comment on above: Performed By: #### L 100.0100, L500.2500, L503.7505 ####[facility] [address] [place], [address] Carbon dioxide, total [Moles /volume] in Central venous bloodOrdered By: Marycarmen Rodriguez on 11-09-2024 CO2 [Moles/Vol] 22.5 mmol/L 21.0-32.0 [facility] Chloride assayOrdered By: Danyelle Rodriguez on 11-09-2024 Chloride [Moles/Vol] 102 mmol/L 98-108 [facility] Eosinophil percentageOrdered By: Marycarmen Rodriguez on 11-09-2024 Eosinophils/100 WBC (Bld) 2.4 % 0-5 [facility] Erythrocyte distribution wid th ratioOrdered By: Marycarmen Rodriguez on 11-09-2024 Erythrocyte distribution width (RBC) [Ratio] 14.1 % 11.6-14.6 [facility] Erythrocyte distribution wid th standard deviationOrdered By: Marycarmen Rodriguez on 11-09-2024 Erythrocyte distribution width (RBC) [Ratio] 47.8 fl High 35.1-43.9 [facility] Glomerular filtration rate ( GFR) estimation/1.73 sq m using serum, plasma, or whole bOrdered By: Marycarmen Rodriguez on 11-09-2024 GFR/1.73 sq M.predicted among non-blacks MDRD (S/P/Bld) [Vol rate/Area] 26 mL/min/{1.73_m2} Low >60 [facility] Comment on above: mL/min/1.73m2 CKD-EP I Creatinine Equation (2020) Hematocrit Auto (Bld) [Volum e fraction]Ordered By: Marycarmen Rodriguez on 11-09-2024 Hematocrit (Bld) [Volume fraction] 38.2 % Low 40-54 [facility] Hemoglobin measurementOrdere d By: Marycarmen Rodriguez on 11-09-2024 Hemoglobin (Bld) [Mass/Vol] 12.2 g/dL Low 13.0-16.5 [facility] Immature granulocytes/100 WB C Auto (Bld)Ordered By: Marycarmen Rodriguez on 11-09-2024 Immature granulocytes/100 WBC (Bld) 0.500 % 0.0-0.9 [facility] Comment on above: IG% - Immature Granu locytes (promyelocytes, myelocytes and metamyelocytes) > 1% indicates that a LEFT SHIFT is Present. L503.7505on 11-09-2024 Natriuretic peptide B (Bld) [Mass/Vol] 91 pg/mL Normal <=1800 [facility] Comment on above: Result Comment: Hear t Failure Unlikely: < 300 pg/mLHeart Failure Likely< 50 Years: > 450 pg/mL50-75 Years: > 900 pg/mL>75 Years: > 1800 pg/mL Performed By: #### L 100.0100, L500.2500, L503.7505 ####[facility] [address] [place], [place], [id number] MCV (mean corpuscular volume ) determinationOrdered By: Marycarmen Rodriguez on 11-09-2024 MCV (RBC) [Entitic vol] 92.7 fL 80-94 [facility] Mean corpuscular hemoglobin (MCH) determinationOrdered By: Marycarmen Rodriguez on 11-09-2024 MCH (RBC) [Entitic mass] 29.6 pg 27.0-32.0 [facility] Mean corpuscular hemoglobin concentration (MCHC) determinationOrdered By: Marycarmen Rodriguez on 11-09-2024 MCHC (RBC) [Mass/Vol] 31.9 g/dL Low 32-36 [facility] Mean platelet volume determi nationOrdered By: Marycarmen Rodriguez on 11-09-2024 Platelet mean volume (Bld) [Entitic vol] 12.7 fL High 6.2-12.0 [facility] Monocyte percentageOrdered B y: Marycarmen Rodriguez on 11-09-2024 Monocytes/100 WBC (Bld) 10.4 % High 0-10 [facility] Natriuretic peptide.B prohor efrem N-Terminal [Mass/volume] in Serum or PlasmaOrdered By: Marycarmen Rodriguez on 11-09-2024 Natriuretic peptide.B prohormone N-Terminal [Mass/Vol] 91 pg/mL <1800 [facility] Comment on above: Heart Failure Unlike ly: < 300 pg/mLHeart Failure Likely< 50 Years: > 450 pg/mL50-75 Years: > 900 pg/mL>75 Years: > 1800 pg/mL Neutrophil percentageOrdered By: Marycarmen Rodriguez on 11-09-2024 Neutrophils/100 WBC (Bld) 66.5 % 47-70 [facility] Nucleated red blood cell per centageOrdered By: Marycarmen Rodriguez on 11-09-2024 Nucleated RBC/100 WBC (Bld) [Ratio] 0 % 0-5 [facility] Platelet countOrdered By: Danyelle Rodriguez on 11-09-2024 Platelets (Bld) [#/Vol] 120 10*3/uL Low 150-450 [facility] Potassium measurement (mass/ volume)Ordered By: Marycarmen Rodriguez on 11-09-2024 Potassium (Unsp spec) [Mass/Vol] 4.6 mmol/L 3.3-5.1 [facility] RBC Auto (Bld) [#/Vol]Ordere d By: Marycarmen Rodriguez on 11-09-2024 RBC (Bld) [#/Vol] 4.12 10*6/uL Low 4.6-6.2 [facility] Serum creatinine measurement (mass/volume)Ordered By: Marycarmen Rodriguez on 11-09-2024 Creatinine [Mass/Vol] 2.49 mg/dL High 0.70-1.20 [facility] Serum glucose measurement (m ass/volume)Ordered By: Marycarmen Rodriguez on 11-09-2024 Glucose [Mass/Vol] 169 mg/dL High 70-99 [facility] Serum or plasma calcium francine urement (mass/volume)Ordered By: Marycarmen Rodriguez on 11-09-2024 Calcium [Mass/Vol] 9.3 mg/dL 7.6-11.0 [facility] Serum or plasma urea nitroge n measurement (mass/volume)Ordered By: Marycarmen Rodriguez on 11-09-2024 Urea nitrogen [Mass/Vol] 49 mg/dL High 4-19 [facility] Sodium levelOrdered By: Marycarmen Rodriguez on 11-09-2024 Sodium [Moles/Vol] 139 mmol/L 133-145 [facility] White blood cell (WBC) count Ordered By: Marycarmen Rodriguez on 11-09-2024 WBC (Bld) [#/Vol] 6.2 10*3/uL 4.4-11.0 [facility] Pulmonary Visit Reporton Pulmonary Visit Report Normal [facility] Cardiology Visit Reporton Cardiology Visit Report Normal [facility] [id number] 10-23-2024 [facility] Misc. COMMENT Normal . [facility] Comment on above: Order Comment: [id number] 0MED TOX Result Comment: Test Ordered: [id number] Screen, Urine Negative ng/mL UI Reference Range: Dojuvg=235Hcqdjnzvmoi test includes Amphetamine and Methamphetamine.Barbiturates Negative ng/mL UI Reference Range: Lwdzmo=591Eiehhhqbzsvvjln Negative ng/mL UI Reference Range: Ldguke=593Ggimttz (Metab.), Urine Negative ng/mL UI Reference Range: Iaeolm=009Agvowko Note: ng/mL UI See Final Results Reference Range: Sgsaue=041Wlvjis test includes Codeine, Morphine, Hydromorphone, Hydrocodone.Opiates Positive [A ] UI Reference Range: Bahafh=520Jfszan test includes Codeine, Morphine, Hydromorphone, Hydrocodone.Codeine Negative UI Reference Range: Qdwrfd=156Fvtqrxwe Negative UI Reference Range: Sfmaur=805Qdrlwdipnyivf Negative UI Reference Range: Gvxqgt=923Ozwvknmkdyc Positive [A ] UI Reference Range: .Hydrocodone Conf, MS, UR 349 ng/mL UI Reference Range: Ewdrdn=7474-Hqkjuoewlruiag, Urine Negative ng/mL UI Reference Range: Cutoff=10Oxycodone/Oxymorphone, Urine Negative ng/mL UI Reference Range: Vaskvd=138Cezz includes Oxycodone and OxymorphonePCP, Urine Negative ng/mL UI Reference Range: Cutoff=25Methadone Screen, Urine Negative ng/mL UI Reference Range: Cbnjvw=267Soloyziqzopw, Urine Negative ng/mL UI Reference Range: Ovsclx=138Okbnirlw, Urine Negative ng/mL UI Reference Range: Cutoff=2.0Test includes Fentanyl and NorfentanylThis test was developed and its performance characteristicsdetermined by [employer]. It has not been cleared orapproved by the Food and Drug Administration.Tramadol Negative ng/mL UI Reference Range: Aepwga=344Xwzuvmtwpbdtx, Urine Negative ng/mL UI Reference Range: Cutoff=10Creatinine, Urine 36.9 mg/dL UI Reference Range: 20.0-300.0pH, Urine 6.1 UI Reference Range: 4.5-8.9Performed at: [facility] [id number] [place], [place] [id number] Director: Erik Wallis PhD, Phone: [phone] at: [address] [id number] Director: Bharath Hawthorne PhD, Phone: [phone] Performed By: #### L 505.5000, [id number] ####[facility] [address] [place], [address] Absolute lymphocyte countOrd ered By: Gustabo Pérez on 10-18-2024 Lymphocytes Auto (Unsp spec) [#/Vol] 1.15 10*3/uL 0.83-4.51 [facility] Absolute neutrophil countOrd ered By: Gustabo Pérez on 10-18-2024 Neutrophils (Bld) [#/Vol] 4.6 10*3/uL 2.0-7.7 [facility] Amphetamine detection with 1 000 ng/mL as cutoffOrdered By: Brooks Carpenter on 10-18-2024 Amphetamines Screen method >1000 ng/mL Ql (U) Negative < 200 ng/mL [facility] Anion gap in Serum or Plasma Ordered By: Gustabo Pérez on 10-18-2024 Anion gap [Moles/Vol] 12 mmol/L 5- [facility] Automated lymphocyte count a s percentage of total leukocytesOrdered By: Gustabo Pérez on 10-18-2024 Lymphocytes/100 WBC Auto (Unsp spec) 17.4 % Low [facility] BUN/creatinine ratioOrdered By: Gustabo Pérez on 10-18-2024 Urea nitrogen/Creatinine [Mass ratio] 16.4 mg/mg - [facility] Basic Metabolic Profile (BMP )on 10-18-2024 BUN/CRE 16.4 RATIO Normal - [facility] Comment on above: Performed By: #### L 100.0100, L500.2500, L503.7505 ####[facility] [address] [place], [address] Calcium [Mass/Vol] 9.0 mg/dL Normal 7.6-11.0 [facility] Comment on above: Performed By: #### L 100.0100, L500.2500, L503.7505 ####[facility] [address] [place], [address] Chloride [Moles/Vol] 103 mmol/L Normal 98-108 [facility] Comment on above: Performed By: #### L 100.0100, L500.2500, L503.7505 ####[facility] [address] [place], [address] CO2 [Moles/Vol] 23.9 mmol/L Normal 21.0-32.0 [facility] Comment on above: Performed By: #### L 100.0100, L500.2500, L503.7505 ####[facility] [address] [place], [address] Creatinine [Mass/Vol] 2.00 mg/dL High 0.70-1.20 [facility] Comment on above: Performed By: #### L 100.0100, L500.2500, L503.7505 ####[facility] [address] [place], [address] GAP 12 Normal 5-15 [facility] Comment on above: Performed By: #### L 100.0100, L500.2500, L503.7505 ####[facility] [address] [place], [address] GFR/1.73 sq M.predicted among non-blacks MDRD (S/P/Bld) [Vol rate/Area] 33 mL/min/{1.73_m2} Low >60 [facility] Comment on above: Result Comment: mL/m in/1.73m2 CKD-EPI Creatinine Equation (2020) Performed By: #### L 100.0100, L500.2500, L503.7505 ####[facility] [address] [place], [address] Glucose [Mass/Vol] 125 mg/dL High 70-99 [facility] Comment on above: Performed By: #### L 100.0100, L500.2500, L503.7505 ####[facility] [address] [place], [address] Potassium [Moles/Vol] 4.8 mmol/L Normal 3.3-5.1 [facility] Comment on above: Performed By: #### L 100.0100, L500.2500, L503.7505 ####[facility] [address] [place], [address] Sodium [Moles/Vol] 139 mmol/L Normal 133-145 [facility] Comment on above: Performed By: #### L 100.0100, L500.2500, L503.7505 ####[facility] [address] [place], [address] Urea nitrogen [Mass/Vol] 33 mg/dL High 4-19 [facility] Comment on above: Performed By: #### L 100.0100, L500.2500, L503.7505 ####[facility] [address] [place], [address] Basophil percentageOrdered B y: Gustabo Pérez on 10-18-2024 Basophils/100 WBC (Bld) 0.2 % 0-1 [facility] CBC W/Diff, Automatedon 10-01 Absolute Lymph 1.15 X10 3/uL Normal 0.83-4.51 [facility] Comment on above: Performed By: #### L 100.0100, L500.2500, L503.7505 ####[facility] [address] [place], [address] Absolute Neut 4.6 X10 3/uL Normal 2.0-7.7 [facility] Comment on above: Performed By: #### L 100.0100, L500.2500, L503.7505 ####[facility] [address] [place], [address] Basophils/100 WBC (Bld) 0.2 % Normal 0-1 [facility] Comment on above: Performed By: #### L 100.0100, L500.2500, L503.7505 ####[facility] [address] [place], [address] Eosinophils/100 WBC (Bld) 2.0 % Normal 0-5 [facility] Comment on above: Performed By: #### L 100.0100, L500.2500, L503.7505 ####[facility] [address] [place], [address] Erythrocyte distribution width (RBC) [Ratio] 14.3 % Normal 11.6-14.6 [facility] Comment on above: Performed By: #### L 100.0100, L500.2500, L503.7505 ####[facility] [address] [place], [address] Hematocrit (Bld) [Volume fraction] 36.4 % Low 40-54 [facility] Comment on above: Performed By: #### L 100.0100, L500.2500, L503.7505 ####[facility] [address] [place], [address] Hemoglobin (Bld) [Mass/Vol] 11.5 g/dL Low 13.0-16.5 [facility] Comment on above: Performed By: #### L 100.0100, L500.2500, L503.7505 ####[facility] [address] [place], [address] IG% 0.600 Normal 0.0-0.9 [facility] Comment on above: Result Comment: IG% - Immature Granulocytes (promyelocytes, myelocytes andmetamyelocytes) > 1% indicates that a LEFT SHIFT is Present. Performed By: #### L 100.0100, L500.2500, L503.7505 ####[facility] [address] [place], [address] Lymphocytes/100 WBC (Bld) 17.4 % Low 19-41 [facility] Comment on above: Performed By: #### L 100.0100, L500.2500, L503.7505 ####[facility] [address] [place], [address] MCH (RBC) [Entitic mass] 29.4 pg Normal 27.0-32.0 [facility] Comment on above: Performed By: #### L 100.0100, L500.2500, L503.7505 ####[facility] [address] [place], [address] MCHC (RBC) [Mass/Vol] 31.6 g/dL Low 32-36 [facility] Comment on above: Performed By: #### L 100.0100, L500.2500, L503.7505 ####[facility] [address] [place], [address] MCV (RBC) [Entitic vol] 93.1 fL Normal 80-94 [facility] Comment on above: Performed By: #### L 100.0100, L500.2500, L503.7505 ####[facility] [address] [place], [address] Monocytes/100 WBC (Bld) 10.4 % High 0-10 [facility] Comment on above: Performed By: #### L 100.0100, L500.2500, L503.7505 ####[facility] [address] [place], [address] Neutrophils/100 WBC (Bld) 69.4 % Normal 47-70 [facility] Comment on above: Performed By: #### L 100.0100, L500.2500, L503.7505 ####[facility] [address] [place], [address] Nucleated RBC (Bld) [#/Vol] 0 10*3/uL Normal 0-5 [facility] Comment on above: Performed By: #### L 100.0100, L500.2500, L503.7505 ####[facility] [address] [place], [address] Platelet mean volume (Bld) [Entitic vol] 12.9 fL High 6.2-12.0 [facility] Comment on above: Performed By: #### L 100.0100, L500.2500, L503.7505 ####[facility] [address] [place], [address] Platelets (Bld) [#/Vol] 152 10*3/uL Normal 150-450 [facility] Comment on above: Performed By: #### L 100.0100, L500.2500, L503.7505 ####[facility] [address] [place], [address] RBC (Bld) [#/Vol] 3.91 10*6/uL Low 4.6-6.2 [facility] Comment on above: Performed By: #### L 100.0100, L500.2500, L503.7505 ####[facility] [address] [place], [address] RDW SD 48.5 fl High 35.1-43.9 [facility] Comment on above: Performed By: #### L 100.0100, L500.2500, L503.7505 ####[facility] [address] [place], [address] WBC (Bld) [#/Vol] 6.6 10*3/uL Normal 4.4-11.0 [facility] Comment on above: Performed By: #### L 100.0100, L500.2500, L503.7505 ####[facility] [address] [place], [address] Carbon dioxide, total [Moles /volume] in Central venous bloodOrdered By: Gustabo Pérez on 10-18-2024 CO2 [Moles/Vol] 23.9 mmol/L 21.0-32.0 [facility] Chloride assayOrdered By: Lydia Pérez on 10-18-2024 Chloride [Moles/Vol] 103 mmol/L 98-108 [facility] Eosinophil percentageOrdered By: Gustabo Pérez on 10-18-2024 Eosinophils/100 WBC (Bld) 2.0 % 0-5 [facility] Erythrocyte distribution wid th ratioOrdered By: Gustabo Pérez on 10-18-2024 Erythrocyte distribution width (RBC) [Ratio] 14.3 % 11.6-14.6 [facility] Erythrocyte distribution wid th standard deviationOrdered By: Gustabo Pérez on 10-18-2024 Erythrocyte distribution width (RBC) [Ratio] 48.5 fl High 35.1-43.9 [facility] Glomerular filtration rate ( GFR) estimation/1.73 sq m using serum, plasma, or whole bOrdered By: Gustabo Pérez on 10-18-2024 GFR/1.73 sq M.predicted among non-blacks MDRD (S/P/Bld) [Vol rate/Area] 33 mL/min/{1.73_m2} Low >60 [facility] Comment on above: mL/min/1.73m2 CKD-EP I Creatinine Equation (2020) Hematocrit Auto (Bld) [Volum e fraction]Ordered By: Gustabo Pérez on 10-18-2024 Hematocrit (Bld) [Volume fraction] 36.4 % Low 40-54 [facility] Hemoglobin measurementOrdere d By: Gustabo Pérez on 10-18-2024 Hemoglobin (Bld) [Mass/Vol] 11.5 g/dL Low 13.0-16.5 [facility] Immature granulocytes/100 WB C Auto (Bld)Ordered By: Gustabo Pérez on 10-18-2024 Immature granulocytes/100 WBC (Bld) 0.600 % 0.0-0.9 [facility] Comment on above: IG% - Immature Granu locytes (promyelocytes, myelocytes and metamyelocytes) > 1% indicates that a LEFT SHIFT is Present. L503.7505on 10-18-2024 Natriuretic peptide B (Bld) [Mass/Vol] 200 pg/mL Normal <=1800 [facility] Comment on above: Result Comment: Hear t Failure Unlikely: < 300 pg/mLHeart Failure Likely< 50 Years: > 450 pg/mL50-75 Years: > 900 pg/mL>75 Years: > 1800 pg/mL Performed By: #### L 100.0100, L500.2500, L503.7505 ####[facility] [address] [place], [address] MCV (mean corpuscular volume ) determinationOrdered By: Gustabo Pérez on 10-18-2024 MCV (RBC) [Entitic vol] 93.1 fL 80-94 [facility] Mean corpuscular hemoglobin (MCH) determinationOrdered By: Gustabo Pérez on 10-18-2024 MCH (RBC) [Entitic mass] 29.4 pg 27.0-32.0 [facility] Mean corpuscular hemoglobin concentration (MCHC) determinationOrdered By: Gustabo Pérez on 10-18-2024 MCHC (RBC) [Mass/Vol] 31.6 g/dL Low 32-36 [facility] Mean platelet volume determi nationOrdered By: Gustabo Pérez on 10-18-2024 Platelet mean volume (Bld) [Entitic vol] 12.9 fL High 6.2-12.0 [facility] Monocyte percentageOrdered B y: Gustabo Pérez on 10-18-2024 Monocytes/100 WBC (Bld) 10.4 % High 0-10 [facility] Natriuretic peptide.B prohor efrem N-Terminal [Mass/volume] in Serum or PlasmaOrdered By: Gustabo Pérez on 10-18-2024 Natriuretic peptide.B prohormone N-Terminal [Mass/Vol] 200 pg/mL <1800 [facility] Comment on above: Heart Failure Unlike ly: < 300 pg/mLHeart Failure Likely< 50 Years: > 450 pg/mL50-75 Years: > 900 pg/mL>75 Years: > 1800 pg/mL Neutrophil percentageOrdered By: Gustabo Pérez on 10-18-2024 Neutrophils/100 WBC (Bld) 69.4 % 47-70 [facility] No Panel InformationOrdered By: Brooks Carpenter on 10-18-2024 Urine Buprenorphine Qualitative Negative < 200 ng/mL [facility] Urine Oxycodone Screen Negative < 100 ng/mL [facility] Negative < 200 ng/mL [facility] Nucleated red blood cell per centageOrdered By: Gustabo Pérez on 10-18-2024 Nucleated RBC/100 WBC (Bld) [Ratio] 0 % 0-5 [facility] Platelet countOrdered By: Lydia Pérez on 10-18-2024 Platelets (Bld) [#/Vol] 152 10*3/uL 150-450 [facility] Potassium measurement (mass/ volume)Ordered By: Gustabo Pérez on 10-18-2024 Potassium (Unsp spec) [Mass/Vol] 4.8 mmol/L 3.3-5.1 [facility] Quantitative urine opiates m easurementOrdered By: Brooks Carpenter on 10-18-2024 Opiates Ql (U) Positive < 300 ng/mL [facility] Comment on above: If confirmation test ing is needed, a separate order will be required to send out testing to the reference laboratory. RBC Auto (Bld) [#/Vol]Ordere d By: Gustabo Pérez on 10-18-2024 RBC (Bld) [#/Vol] 3.91 10*6/uL Low 4.6-6.2 [facility] Screening urine fentanyl ritu surementOrdered By: Brooks Carpenter on 10-18-2024 fentaNYL Screen Ql (U) Negative [facility] Serum creatinine measurement (mass/volume)Ordered By: Gustabo Pérez on 10-18-2024 Creatinine [Mass/Vol] 2.00 mg/dL High 0.70-1.20 [facility] Serum glucose measurement (m ass/volume)Ordered By: Gustabo Pérez on 10-18-2024 Glucose [Mass/Vol] 125 mg/dL High 70-99 [facility] Serum or plasma calcium francine urement (mass/volume)Ordered By: Gustabo Pérez on 10-18-2024 Calcium [Mass/Vol] 9.0 mg/dL 7.6-11.0 [facility] Serum or plasma urea nitroge n measurement (mass/volume)Ordered By: Gustabo Pérze on 10-18-2024 Urea nitrogen [Mass/Vol] 33 mg/dL High 4-19 [facility] Sodium levelOrdered By: Gustabo Pérez on 10-18-2024 Sodium [Moles/Vol] 139 mmol/L 133-145 [facility] Urine Drug Screen (VISTA)on 10-18-2024 AMPHETAMINES Negative Normal <1000 ng/mL [facility] Comment on above: Order Comment: PAIN MANAGMENT Performed By: #### L 505.5000, L3410.9992 ####[facility] [address] [place], [place], [id number] BARBITIURATES Negative Normal < 200 ng/mL [facility] Comment on above: Order Comment: PAIN MANAGMENT Performed By: #### L 505.5000, L3410.9992 ####[facility] [address] [place], [place], [id number] BENZODIAZIPINE Negative Normal < 200 ng/mL [facility] Comment on above: Order Comment: PAIN MANAGMENT Performed By: #### L 505.5000, L3410.9992 ####[facility] [address] [place], [address] BUP Ur Drug Scr Negative Normal < 200 ng/mL [facility] Comment on above: Order Comment: PAIN MANAGMENT Performed By: #### L 505.5000, L3410.9992 ####[facility] [address] [place], [address] COCAINE Negative Normal < 300 ng/mL [facility] Comment on above: Order Comment: PAIN MANAGMENT Performed By: #### L 505.5000, L3410.9992 ####[facility] [address] [place], [address] Fentanyl Negative Normal [facility] Comment on above: Order Comment: PAIN MANAGMENT Performed By: #### L 505.5000, L3410.9992 ####[facility] [address] [place], [address] METHADONE Negative Normal < 300 ng/mL [facility] Comment on above: Order Comment: PAIN MANAGMENT Performed By: #### L 505.5000, L3410.9992 ####[facility] [address] [place], [address] OPIATES Positive Normal < 300 ng/mL [facility] Comment on above: Order Comment: PAIN MANAGMENT Result Comment: If c onfirmation testing is needed, a separate order will berequired to send out testing to the reference laboratory. Performed By: #### L 505.5000, L3410.9992 ####[facility] [address] [place], [address] OXYCODONE Negative Normal < 100 ng/mL [facility] Comment on above: Order Comment: PAIN MANAGMENT Performed By: #### L 505.5000, L3410.9992 ####[facility] [address] [place], [address] PCP Negative Normal < 25 ng/mL [facility] Comment on above: Order Comment: PAIN MANAGMENT Performed By: #### L 505.5000, L3410.9992 ####[facility] [address] [place], [place], [id number] THC Negative Normal < 50 ng/mL [facility] Comment on above: Order Comment: PAIN MANAGMENT Performed By: #### L 505.5000, L3410.9992 ####[facility] [address] [place], [place], [id number] Urine benzodiazepine levelOr dered By: Brooks Carpenter on 10-18-2024 Benzodiazepines Ql (U) Negative < 200 ng/mL [facility] Urine cocaine levelOrdered B y: Brooks Basali on 10-18-2024 Cocaine Ql (U) Negative < 300 ng/mL [facility] Urine cmjaa-2-gsboytnfrphuds abinol (THC) measurementOrdered By: Brooks Carpenter on 10-18-2024 Cannabinoids Screen Ql (U) Negative < 50 ng/mL [facility] Urine phencyclidine (PCP) de tectionOrdered By: Brooks Hoyti on 10-18-2024 Phencyclidine Ql (U) Negative < 25 ng/mL [facility] White blood cell (WBC) count Ordered By: Gustabo Pérez on 10-18-2024 WBC (Bld) [#/Vol] 6.6 10*3/uL 4.4-11.0 [facility] Absolute lymphocyte countOrd ered By: Marycarmen Rodriguez on 09-29-2024 Lymphocytes Auto (Unsp spec) [#/Vol] 1.35 10*3/uL 0.83-4.51 [facility] Absolute neutrophil countOrd ered By: Marycarmen Rodriguez on 09-29-2024 Neutrophils (Bld) [#/Vol] 9.2 10*3/uL High 2.0-7.7 [facility] Automated lymphocyte count a s percentage of total leukocytesOrdered By: Marycarmen Rodriguez on 09-29-2024 Lymphocytes/100 WBC Auto (Unsp spec) 10.9 % Low 19-41 [facility] Basophil percentageOrdered B y: Marycarmen Rodriguez on 05-30-2025 Basophils/100 WBC (Bld) 0.6 % 0-1 [facility] CBC W/Diff, Automatedon 05-3 0-2025 Absolute Lymph 1.35 X10 3/uL Normal 0.83-4.51 [facility] Comment on above: Performed By: #### L 100.0100, L503.0106, L503.6150, L503.6550 ####[facility] [address] [place], [address] Absolute Neut 9.2 X10 3/uL High 2.0-7.7 [facility] Comment on above: Performed By: #### L 100.0100, L503.0106, L503.6150, L503.6550 ####[facility] [address] [place], [address] Basophils/100 WBC (Bld) 0.6 % Normal 0-1 [facility] Comment on above: Performed By: #### L 100.0100, L503.0106, L503.6150, L503.6550 ####[facility] [address] [place], [address] Eosinophils/100 WBC (Bld) 0.7 % Normal 0-5 [facility] Comment on above: Performed By: #### L 100.0100, L503.0106, L503.6150, L503.6550 ####[facility] [address] [place], [address] Erythrocyte distribution width (RBC) [Ratio] 14.2 % Normal 11.6-14.6 [facility] Comment on above: Performed By: #### L 100.0100, L503.0106, L503.6150, L503.6550 ####[facility] [address] [place], [address] Hematocrit (Bld) [Volume fraction] 37.4 % Low 40-54 [facility] Comment on above: Performed By: #### L 100.0100, L503.0106, L503.6150, L503.6550 ####[facility] [address] [place], [address] Hemoglobin (Bld) [Mass/Vol] 12.1 g/dL Low 13.0-16.5 [facility] Comment on above: Performed By: #### L 100.0100, L503.0106, L503.6150, L503.6550 ####[facility] [address] [place], [address] IG% 3.600 High 0.0-0.9 [facility] Comment on above: Result Comment: IG% - Immature Granulocytes (promyelocytes, myelocytes andmetamyelocytes) > 1% indicates that a LEFT SHIFT is Present. Performed By: #### L 100.0100, L503.0106, L503.6150, L503.6550 ####[facility] [address] [place], [address] Lymphocytes/100 WBC (Bld) 10.9 % Low 19-41 [facility] Comment on above: Performed By: #### L 100.0100, L503.0106, L503.6150, L503.6550 ####[facility] [address] [place], [address] MCH (RBC) [Entitic mass] 29.6 pg Normal 27.0-32.0 [facility] Comment on above: Performed By: #### L 100.0100, L503.0106, L503.6150, L503.6550 ####[facility] [address] [place], [address] MCHC (RBC) [Mass/Vol] 32.4 g/dL Normal 32-36 [facility] Comment on above: Performed By: #### L 100.0100, L503.0106, L503.6150, L503.6550 ####[facility] [address] [place], [address] MCV (RBC) [Entitic vol] 91.4 fL Normal 80-94 [facility] Comment on above: Performed By: #### L 100.0100, L503.0106, L503.6150, L503.6550 ####[facility] [address] [place], [address] Monocytes/100 WBC (Bld) 9.9 % Normal 0-10 [facility] Comment on above: Performed By: #### L 100.0100, L503.0106, L503.6150, L503.6550 ####[facility] [address] [place], [address] Neutrophils/100 WBC (Bld) 74.3 % High 47-70 [facility] Comment on above: Performed By: #### L 100.0100, L503.0106, L503.6150, L503.6550 ####[facility] [address] [place], [address] Nucleated RBC (Bld) [#/Vol] 0 10*3/uL Normal 0-5 [facility] Comment on above: Performed By: #### L 100.0100, L503.0106, L503.6150, L503.6550 ####[facility] [address] [place], [address] Platelet mean volume (Bld) [Entitic vol] 12.3 fL High 6.2-12.0 [facility] Comment on above: Performed By: #### L 100.0100, L503.0106, L503.6150, L503.6550 ####[facility] [address] [place], [address] Platelets (Bld) [#/Vol] 169 10*3/uL Normal 150-450 [facility] Comment on above: Performed By: #### L 100.0100, L503.0106, L503.6150, L503.6550 ####[facility] [address] [place], [address] RBC (Bld) [#/Vol] 4.09 10*6/uL Low 4.6-6.2 [facility] Comment on above: Performed By: #### L 100.0100, L503.0106, L503.6150, L503.6550 ####[facility] [address] [place], [address] RDW SD 47.4 fl High 35.1-43.9 [facility] Comment on above: Performed By: #### L 100.0100, L503.0106, L503.6150, L503.6550 ####[facility] [address] [place], [address] WBC (Bld) [#/Vol] 12.4 10*3/uL High 4.4-11.0 [facility] Comment on above: Performed By: #### L 100.0100, L503.0106, L503.6150, L503.6550 ####[facility] [address] [place], [address] Eosinophil percentageOrdered By: Marycarmen Rodriguez on 09-29-2024 Eosinophils/100 WBC (Bld) 0.7 % 0-5 [facility] Erythrocyte distribution wid th ratioOrdered By: Marycarmen Rodriguez on 09-29-2024 Erythrocyte distribution width (RBC) [Ratio] 14.2 % 11.6-14.6 [facility] Erythrocyte distribution wid th standard deviationOrdered By: Marycarmen Rodriguez on 09-29-2024 Erythrocyte distribution width (RBC) [Ratio] 47.4 fl High 35.1-43.9 [facility] Ferritinon 09-29-2024 Ferritin [Mass/Vol] 454 ng/mL High 37-417 [facility] Comment on above: Performed By: #### L 100.0100, L503.0106, L503.6150, L503.6550 ####[facility] [address] [place], [place], [id number] Hematocrit Auto (Bld) [Volum e fraction]Ordered By: Marycarmen Rodriguez on 09-29-2024 Hematocrit (Bld) [Volume fraction] 37.4 % Low 40-54 [facility] Hemoglobin measurementOrdere d By: Marycarmen Rodriguez on 09-29-2024 Hemoglobin (Bld) [Mass/Vol] 12.1 g/dL Low 13.0-16.5 [facility] Immature granulocytes/100 WB C Auto (Bld)Ordered By: Marycarmen Rodriguez on 09-29-2024 Immature granulocytes/100 WBC (Bld) 3.600 % High 0.0-0.9 [facility] Comment on above: IG% - Immature Granu locytes (promyelocytes, myelocytes and metamyelocytes) > 1% indicates that a LEFT SHIFT is Present. Ironon 09-29-2024 Iron [Mass/Vol] 80 ug/dL Normal 65-175 [facility] Comment on above: Performed By: #### L 100.0100, L503.0106, L503.6150, L503.6550 ####[facility] [address] [place], [place], [id number] Iron measurement (mass/mass) Ordered By: Marycarmen Rodriguez on 09-29-2024 Iron (Unsp spec) [Mass/Mass] 80 ug/dL 65-175 [facility] MCV (mean corpuscular volume ) determinationOrdered By: Marycarmen Rodriguez on 09-29-2024 MCV (RBC) [Entitic vol] 91.4 fL 80-94 [facility] Mean corpuscular hemoglobin (MCH) determinationOrdered By: Marycarmen Rodriguez on 09-29-2024 MCH (RBC) [Entitic mass] 29.6 pg 27.0-32.0 [facility] Mean corpuscular hemoglobin concentration (MCHC) determinationOrdered By: Marycarmen Rodriguez on 09-29-2024 MCHC (RBC) [Mass/Vol] 32.4 g/dL 32-36 [facility] Mean platelet volume determi nationOrdered By: Marycarmen Rodriguez on 09-29-2024 Platelet mean volume (Bld) [Entitic vol] 12.3 fL High 6.2-12.0 [facility] Monocyte percentageOrdered B y: Marycarmen Rodriguez on 09-29-2024 Monocytes/100 WBC (Bld) 9.9 % 0-10 [facility] Neutrophil percentageOrdered By: Marycarmen Rodriguez on 09-29-2024 Neutrophils/100 WBC (Bld) 74.3 % High 47-70 [facility] Nucleated red blood cell per centageOrdered By: Marycarmen Rodriguez on 09-29-2024 Nucleated RBC/100 WBC (Bld) [Ratio] 0 % 0-5 [facility] Platelet countOrdered By: Danyelle Rodriguez on 09-29-2024 Platelets (Bld) [#/Vol] 169 10*3/uL 150-450 [facility] RBC Auto (Bld) [#/Vol]Ordere d By: Marycarmen Rodriguez on 09-29-2024 RBC (Bld) [#/Vol] 4.09 10*6/uL Low 4.6-6.2 [facility] Serum or plasma ferritin ritu surement (mass/volume)Ordered By: Marycarmen Rodriguez on 09-29-2024 Ferritin [Mass/Vol] 454 ng/mL High 37-417 [facility] Vitamin B12on 09-29-2024 Cobalamin (Vitamin B12) [Mass/Vol] 766 pg/mL Normal 180-914 [facility] Comment on above: Performed By: #### L 100.0100, L503.0106, L503.6150, L503.6550 ####[facility] [address] [place], [place], [id number] Vitamin B12 ser/plasOrdered By: Marycarmen Rodriguez on 09-29-2024 Cobalamin (Vitamin B12) [Mass/Vol] 766 pg/mL 180-914 [facility] White blood cell (WBC) count Ordered By: Marycarmen Rodriguez on 09-29-2024 WBC (Bld) [#/Vol] 12.4 10*3/uL High 4.4-11.0 [facility] Absolute lymphocyte countOrd ered By: ELIAZAR Olivas on 09-20-2024 Lymphocytes Auto (Unsp spec) [#/Vol] 1.44 10*3/uL 0.83-4.51 [facility] Absolute neutrophil countOrd ered By: ELIAZAR Olivas on 09-20-2024 Neutrophils (Bld) [#/Vol] 6.6 10*3/uL 2.0-7.7 [facility] Automated lymphocyte count a s percentage of total leukocytesOrdered By: ELIAZAR Olivas on 09-20-2024 Lymphocytes/100 WBC Auto (Unsp spec) 15.5 % Low 19-41 [facility] Basophil percentageOrdered B y: ELIAZAR Olivas on 09-20-2024 Basophils/100 WBC (Bld) 0.3 % 0-1 [facility] CBC W/Diff, Automatedon 09-01 Absolute Lymph 1.44 X10 3/uL Normal 0.83-4.51 [facility] Comment on above: Performed By: #### L 100.0100, L503.7505 ####[facility] [address] [place], [address] Absolute Neut 6.6 X10 3/uL Normal 2.0-7.7 [facility] Comment on above: Performed By: #### L 100.0100, L503.7505 ####[facility] [address] [place], [address] Basophils/100 WBC (Bld) 0.3 % Normal 0-1 [facility] Comment on above: Performed By: #### L 100.0100, L503.7505 ####[facility] [address] [place], [address] Eosinophils/100 WBC (Bld) 1.5 % Normal 0-5 [facility] Comment on above: Performed By: #### L 100.0100, L503.7505 ####[facility] [address] [place], [address] Erythrocyte distribution width (RBC) [Ratio] 14.1 % Normal 11.6-14.6 [facility] Comment on above: Performed By: #### L 100.0100, L503.7505 ####[facility] [address] [place], [address] Hematocrit (Bld) [Volume fraction] 34.8 % Low 40-54 [facility] Comment on above: Performed By: #### L 100.0100, L503.7505 ####[facility] [address] [place], [address] Hemoglobin (Bld) [Mass/Vol] 11.1 g/dL Low 13.0-16.5 [facility] Comment on above: Performed By: #### L 100.0100, L503.7505 ####[facility] [address] [place], [address] IG% 0.800 Normal 0.0-0.9 [facility] Comment on above: Result Comment: IG% - Immature Granulocytes (promyelocytes, myelocytes andmetamyelocytes) > 1% indicates that a LEFT SHIFT is Present. Performed By: #### L 100.0100, L503.7505 ####[facility] [address] [place], [address] Lymphocytes/100 WBC (Bld) 15.5 % Low 19-41 [facility] Comment on above: Performed By: #### L 100.0100, L503.7505 ####[facility] [address] [place], [address] MCH (RBC) [Entitic mass] 29.4 pg Normal 27.0-32.0 [facility] Comment on above: Performed By: #### L 100.0100, L503.7505 ####[facility] [address] [place], [address] MCHC (RBC) [Mass/Vol] 31.9 g/dL Low 32-36 [facility] Comment on above: Performed By: #### L 100.0100, L503.7505 ####[facility] [address] [place], [address] MCV (RBC) [Entitic vol] 92.1 fL Normal 80-94 [facility] Comment on above: Performed By: #### L 100.0100, L503.7505 ####[facility] [address] [place], [address] Monocytes/100 WBC (Bld) 11.1 % High 0-10 [facility] Comment on above: Performed By: #### L 100.0100, L503.7505 ####[facility] [address] [place], [address] Neutrophils/100 WBC (Bld) 70.8 % High 47-70 [facility] Comment on above: Performed By: #### L 100.0100, L503.7505 ####[facility] [address] [place], [address] Nucleated RBC (Bld) [#/Vol] 0 10*3/uL Normal 0-5 [facility] Comment on above: Performed By: #### L 100.0100, L503.7505 ####[facility] [address] [place], [address] Platelet mean volume (Bld) [Entitic vol] 12.6 fL High 6.2-12.0 [facility] Comment on above: Performed By: #### L 100.0100, L503.7505 ####[facility] [address] [place], [address] Platelets (Bld) [#/Vol] 166 10*3/uL Normal 150-450 [facility] Comment on above: Performed By: #### L 100.0100, L503.7505 ####[facility] [address] [place], [address] RBC (Bld) [#/Vol] 3.78 10*6/uL Low 4.6-6.2 [facility] Comment on above: Performed By: #### L 100.0100, L503.7505 ####[facility] [address] [place], [address] RDW SD 48.0 fl High 35.1-43.9 [facility] Comment on above: Performed By: #### L 100.0100, L503.7505 ####[facility] [address] [place], [address] WBC (Bld) [#/Vol] 9.3 10*3/uL Normal 4.4-11.0 [facility] Comment on above: Performed By: #### L 100.0100, L503.7505 ####[facility] [address] [place], [address] Eosinophil percentageOrdered By: ELIAZAR Olivas on 09-20-2024 Eosinophils/100 WBC (Bld) 1.5 % 0-5 [facility] Erythrocyte distribution wid th ratioOrdered By: ELIAZAR Olivas on 09-20-2024 Erythrocyte distribution width (RBC) [Ratio] 14.1 % 11.6-14.6 [facility] Erythrocyte distribution wid th standard deviationOrdered By: ELIAZAR Olivas on 09-20-2024 Erythrocyte distribution width (RBC) [Ratio] 48.0 fl High 35.1-43.9 [facility] Hematocrit Auto (Bld) [Volum e fraction]Ordered By: ELIAZAR Olivas on 09-20-2024 Hematocrit (Bld) [Volume fraction] 34.8 % Low 40-54 [facility] Hemoglobin measurementOrdere d By: ELIAZAR Olivas on 09-20-2024 Hemoglobin (Bld) [Mass/Vol] 11.1 g/dL Low 13.0-16.5 [facility] Immature granulocytes/100 WB C Auto (Bld)Ordered By: ELIAZAR Olivas on 09-20-2024 Immature granulocytes/100 WBC (Bld) 0.800 % 0.0-0.9 [facility] Comment on above: IG% - Immature Granu locytes (promyelocytes, myelocytes and metamyelocytes) > 1% indicates that a LEFT SHIFT is Present. L503.7505on 09-20-2024 Natriuretic peptide B (Bld) [Mass/Vol] 84 pg/mL Normal <=1800 [facility] Comment on above: Result Comment: Hear t Failure Unlikely: < 300 pg/mLHeart Failure Likely< 50 Years: > 450 pg/mL50-75 Years: > 900 pg/mL>75 Years: > 1800 pg/mL Performed By: #### L 100.0100, L503.7505 ####[facility] [address] [place], [address] MCV (mean corpuscular volume ) determinationOrdered By: ELIAZAR Olivas on 09-20-2024 MCV (RBC) [Entitic vol] 92.1 fL 80-94 [facility] Mean corpuscular hemoglobin (MCH) determinationOrdered By: ELIAZAR Olivas on 09-20-2024 MCH (RBC) [Entitic mass] 29.4 pg 27.0-32.0 [facility] Mean corpuscular hemoglobin concentration (MCHC) determinationOrdered By: ELIAZAR Olivas on 09-20-2024 MCHC (RBC) [Mass/Vol] 31.9 g/dL Low 32-36 [facility] Mean platelet volume determi nationOrdered By: ELIAZAR Olivas on 09-20-2024 Platelet mean volume (Bld) [Entitic vol] 12.6 fL High 6.2-12.0 [facility] Monocyte percentageOrdered B y: ELIAZAR Olivas on 09-20-2024 Monocytes/100 WBC (Bld) 11.1 % High 0-10 [facility] Natriuretic peptide.B prohor efrem N-Terminal [Mass/volume] in Serum or PlasmaOrdered By: ELIAZAR Olivas on 09-20-2024 Natriuretic peptide.B prohormone N-Terminal [Mass/Vol] 84 pg/mL <1800 [facility] Comment on above: Heart Failure Unlike ly: < 300 pg/mLHeart Failure Likely< 50 Years: > 450 pg/mL50-75 Years: > 900 pg/mL>75 Years: > 1800 pg/mL Neutrophil percentageOrdered By: ELIAZAR Olivas on 09-20-2024 Neutrophils/100 WBC (Bld) 70.8 % High 47-70 [facility] Nucleated red blood cell per centageOrdered By: ELIAZAR Olivas on 09-20-2024 Nucleated RBC/100 WBC (Bld) [Ratio] 0 % 0-5 [facility] Platelet countOrdered By: ELIAZAR Olivas on 09-20-2024 Platelets (Bld) [#/Vol] 166 10*3/uL 150-450 [facility] Pulmonary Visit Reporton Pulmonary Visit Report Normal [facility] RBC Auto (Bld) [#/Vol]Ordere d By: ELIAZAR Olivas on 09-20-2024 RBC (Bld) [#/Vol] 3.78 10*6/uL Low 4.6-6.2 [facility] White blood cell (WBC) count Ordered By: ELIAZAR Olivas on 09-20-2024 WBC (Bld) [#/Vol] 9.3 10*3/uL 4.4-11.0 [facility] 6 Minute Walk Teston 025 6 Minute Walk Test Normal [facility] Pulmonary Visit Reporton Pulmonary Visit Report Normal [facility] BUN/creatinine ratioOrdered By: Marycarmen Rodriguez on 06-30-2024 Urea nitrogen/Creatinine [Mass ratio] 17.4 mg/mg - [facility] Basic Metabolic Profile (BMP )on 06-30-2024 Anion gap [Moles/Vol] 11 mmol/L Normal - [facility] Comment on above: Performed By: #### L 500.2500 ####[facility] [address] [place], [address] BUN/CRE 17.4 RATIO Normal 02-19 [facility] Comment on above: Performed By: #### L 500.2500 ####[facility] [address] [place], [address] Calcium [Mass/Vol] 9.7 mg/dL Normal 7.6-11.0 [facility] Comment on above: Performed By: #### L 500.2500 ####[facility] [address] [place], [address] Chloride [Moles/Vol] 105 mmol/L Normal 96-108 [facility] Comment on above: Performed By: #### L 500.2500 ####[facility] [address] [place], [address] CO2 [Moles/Vol] 25.3 mmol/L Normal 22.0-29.0 [facility] Comment on above: Performed By: #### L 500.2500 ####[facility] [address] [place], [address] Creatinine [Mass/Vol] 1.80 mg/dL High 0.70-1.20 [facility] Comment on above: Performed By: #### L 500.2500 ####[facility] [address] [place], [address] GFR/1.73 sq M.predicted among non-blacks MDRD (S/P/Bld) [Vol rate/Area] 38 mL/min/{1.73_m2} Low >60 [facility] Comment on above: Result Comment: mL/m in/1.73m2 CKD-EPI Creatinine Equation (2020) Performed By: #### L 500.2500 ####[facility] [address] [place], [address] Glucose [Mass/Vol] 112 mg/dL High 70-99 [facility] Comment on above: Performed By: #### L 500.2500 ####[facility] [address] [place], [address] Potassium [Moles/Vol] 4.8 mmol/L Normal 3.3-5.1 [facility] Comment on above: Performed By: #### L 500.2500 ####[facility] [address] [place], [address] Sodium [Moles/Vol] 141 mmol/L Normal 133-145 [facility] Comment on above: Performed By: #### L 500.2500 ####[facility] [address] [place], [address] Urea nitrogen [Mass/Vol] 31 mg/dL High 4-19 [facility] Comment on above: Performed By: #### L 500.2500 ####[facility] [address] [place], [place], [id number] Carbon dioxide measurementOr dered By: Marycarmen Rodriguez on 06-30-2024 CO2 [Moles/Vol] 25.3 mmol/L 22.0-29.0 [facility] Chloride measurementOrdered By: Marycarmen Rodriguez on 06-30-2024 Chloride [Moles/Vol] 105 mmol/L 96-108 [facility] GFR/1.73 sq M.predicted ana lilia g non-blacks MDRD (S/P/Bld) [Vol rate/Area]Ordered By: Marycarmen Rodriguez on 06-30-2024 Estimated GFR (MDRD) Non-Af Amer 38 Low >60 [facility] Comment on above: mL/min/1.73m2 CKD-EP I Creatinine Equation (2020) Glomerular filtration rate ( GFR) estimation/1.73 sq m using serum, plasma, or whole bOrdered By: Marycarmen Rodriguez on 06-30-2024 GFR/1.73 sq M.predicted among non-blacks MDRD (S/P/Bld) [Vol rate/Area] 38 mL/min/{1.73_m2} Low >60 [facility] Comment on above: mL/min/1.73m2 CKD-EP I Creatinine Equation (2020) Serum creatinine measurement (mass/volume)Ordered By: Marycarmen Rodriguez on 06-30-2024 Creatinine [Mass/Vol] 1.80 mg/dL High 0.70-1.20 [facility] Serum glucose measurement (m ass/volume)Ordered By: Marycarmen Rodriguez on 06-30-2024 Glucose [Mass/Vol] 112 mg/dL High 70-99 [facility] Serum or plasma anion gap de termination (moles/volume)Ordered By: Marycarmen Rodriguez on 06-30-2024 Anion gap [Moles/Vol] 11 mmol/L 5-15 [facility] Serum or plasma calcium francine urement (mass/volume)Ordered By: Marycarmen Rodriguez on 06-30-2024 Calcium [Mass/Vol] 9.7 mg/dL 7.6-11.0 [facility] Serum or plasma potassium me asurementOrdered By: Marycarmen Rodriguez on 06-30-2024 Potassium [Moles/Vol] 4.8 mmol/L 3.3-5.1 [facility] Serum or plasma sodium measu rement (moles/volume)Ordered By: Marycarmen Rodriguez on 06-30-2024 Sodium [Moles/Vol] 141 mmol/L 133-145 [facility] Serum or plasma urea nitroge n measurement (mass/volume)Ordered By: Marycarmen Rodriguez on 06-30-2024 Urea nitrogen [Mass/Vol] 31 mg/dL High 4-19 [facility] Absolute neutrophil countOrd ered By: Gustabo Pérez on 04-17-2024 Neutrophils (Bld) [#/Vol] 6.0 10*3/uL 2.0-7.7 [facility] BNP (brain natriuretic pepti de measurement)Ordered By: Gustabo Pérez on 04-17-2024 Natriuretic peptide B (Bld) [Mass/Vol] 37.2 pg/mL 0-100 [facility] BNP,B-Type NATRIURETIC PEPTI Sharon 04-17-2024 Natriuretic peptide B (Bld) [Mass/Vol] 37.2 pg/mL Normal 0-100 [facility] Comment on above: Performed By: #### L 100.0100, L500.2500, L503.6620 ####[facility] [address] [place], [place], [id number] Basic Metabolic Profile (BMP )on 04-17-2024 BUN/CRE 11.2 RATIO Normal 10-20 [facility] Comment on above: Performed By: #### L 100.0100, L500.2500, L503.6620 ####[facility] [address] [place], [address] CA,Total 9.0 mg/dL Normal 8.5-10.1 [facility] Comment on above: Performed By: #### L 100.0100, L500.2500, L503.6620 ####[facility] [address] [place], [address] Chloride [Moles/Vol] 107 mmol/L Normal 98-107 [facility] Comment on above: Performed By: #### L 100.0100, L500.2500, L503.6620 ####[facility] [address] [place], [address] CO2 [Moles/Vol] 27.0 mmol/L Normal 21.0-32.0 [facility] Comment on above: Performed By: #### L 100.0100, L500.2500, L503.6620 ####[facility] [address] [place], [address] Creatinine [Mass/Vol] 1.79 mg/dL High 0.70-1.30 [facility] Comment on above: Result Comment: The validity of the calculated GFR GFRAA in patients over70 years has not been determined. Clinical correlation isessential. Performed By: #### L 100.0100, L500.2500, L503.6620 ####[facility] [address] [place], [address] EST GFR - AA 47 mL/min Low >60 [facility] Comment on above: Result Comment: Afri can Swazi GFR Calc Performed By: #### L 100.0100, L500.2500, L503.6620 ####[facility] [address] [place], [address] GAP 4 Low 5-15 [facility] Comment on above: Performed By: #### L 100.0100, L500.2500, L503.6620 ####[facility] [address] [place], [address] GFR/1.73 sq M.predicted among non-blacks MDRD (S/P/Bld) [Vol rate/Area] 39 mL/min/{1.73_m2} Low >60 [facility] Comment on above: Result Comment: Non- GFR Calc Performed By: #### L 100.0100, L500.2500, L503.6620 ####[facility] [address] [place] [place], [address] Glucose [Mass/Vol] 228 mg/dL High 74-106 [facility] Comment on above: Result Comment: Gluc ose result greater than or equal to 200 mg/dLsuggests DIABETES MELLITUS per A.D.A. criteria. Performed By: #### L 100.0100, L500.2500, L503.6620 ####[facility] [address] [place], [address] Potassium [Moles/Vol] 4.8 mmol/L Normal 3.5-5.1 [facility] Comment on above: Performed By: #### L 100.0100, L500.2500, L503.6620 ####[facility] [address] [place], [address] Sodium [Moles/Vol] 138 mmol/L Normal 136-145 [facility] Comment on above: Performed By: #### L 100.0100, L500.2500, L503.6620 ####[facility] [address] [place], [address] Urea nitrogen [Mass/Vol] 20 mg/dL High 7-18 [facility] Comment on above: Performed By: #### L 100.0100, L500.2500, L503.6620 ####[facility] [address] [place], [address] Basophil percentageOrdered B y: Gustabo Pérez on 04-17-2024 Basophils/100 WBC (Bld) 0.5 % 0-1 [facility] Blood urea nitrogen (BUN)/cr eatinine ratioOrdered By: Gustabo Pérez on 04-17-2024 Urea nitrogen/Creatinine [Mass ratio] 11.2 mg/mg - [facility] CBC W/Diff, Automatedon 04-02 Absolute Lymph 1.29 X10 3/uL Normal 0.83-4.51 [facility] Comment on above: Performed By: #### L 100.0100, L500.2500, L503.6620 ####[facility] [address] [place], [address] Absolute Neut 6.0 X10 3/uL Normal 2.0-7.7 [facility] Comment on above: Performed By: #### L 100.0100, L500.2500, L503.6620 ####[facility] [address] [place], [address] Basophils/100 WBC (Bld) 0.5 % Normal 0-1 [facility] Comment on above: Performed By: #### L 100.0100, L500.2500, L503.6620 ####[facility] [address] [place], [address] Eosinophils/100 WBC (Bld) 1.2 % Normal 0-5 [facility] Comment on above: Performed By: #### L 100.0100, L500.2500, L503.6620 ####[facility] [address] [place], [address] Erythrocyte distribution width (RBC) [Ratio] 13.9 % Normal 11.6-14.6 [facility] Comment on above: Performed By: #### L 100.0100, L500.2500, L503.6620 ####[facility] [address] [place], [address] Hematocrit (Bld) [Volume fraction] 41.0 % Normal 40-54 [facility] Comment on above: Performed By: #### L 100.0100, L500.2500, L503.6620 ####[facility] [address] [place], [address] Hemoglobin (Bld) [Mass/Vol] 13.2 g/dL Normal 13.0-16.5 [facility] Comment on above: Performed By: #### L 100.0100, L500.2500, L503.6620 ####[facility] [address] [place], [address] IG% 0.600 Normal 0.0-0.9 [facility] Comment on above: Result Comment: IG% - Immature Granulocytes (promyelocytes, myelocytes andmetamyelocytes) > 1% indicates that a LEFT SHIFT is Present. Performed By: #### L 100.0100, L500.2500, L503.6620 ####[facility] [address] [place], [address] Lymphocytes/100 WBC (Bld) 15.7 % Low 19-41 [facility] Comment on above: Performed By: #### L 100.0100, L500.2500, L503.6620 ####[facility] [address] [place], [address] MCH (RBC) [Entitic mass] 29.2 pg Normal 27.0-32.0 [facility] Comment on above: Performed By: #### L 100.0100, L500.2500, L503.6620 ####[facility] [address] [place], [address] MCHC (RBC) [Mass/Vol] 32.2 g/dL Normal 32-36 [facility] Comment on above: Performed By: #### L 100.0100, L500.2500, L503.6620 ####[facility] [address] [place], [address] MCV (RBC) [Entitic vol] 90.7 fL Normal 80-94 [facility] Comment on above: Performed By: #### L 100.0100, L500.2500, L503.6620 ####[facility] [address] [place], [address] Monocytes/100 WBC (Bld) 8.5 % Normal 0-10 [facility] Comment on above: Performed By: #### L 100.0100, L500.2500, L503.6620 ####[facility] [address] [place], [address] Neutrophils/100 WBC (Bld) 73.5 % High 47-70 [facility] Comment on above: Performed By: #### L 100.0100, L500.2500, L503.6620 ####[facility] [address] [place], [address] Nucleated RBC (Bld) [#/Vol] 0 10*3/uL Normal 0-5 [facility] Comment on above: Performed By: #### L 100.0100, L500.2500, L503.6620 ####[facility] [address] [place], [address] Platelet mean volume (Bld) [Entitic vol] 12.3 fL High 6.2-12.0 [facility] Comment on above: Performed By: #### L 100.0100, L500.2500, L503.6620 ####[facility] [address] [place], [address] Platelets (Bld) [#/Vol] 185 10*3/uL Normal 150-450 [facility] Comment on above: Performed By: #### L 100.0100, L500.2500, L503.6620 ####[facility] [address] [place], [address] RBC (Bld) [#/Vol] 4.52 10*6/uL Low 4.6-6.2 [facility] Comment on above: Performed By: #### L 100.0100, L500.2500, L503.6620 ####[facility] [address] [place], [address] RDW SD 46.4 fl High 35.1-43.9 [facility] Comment on above: Performed By: #### L 100.0100, L500.2500, L503.6620 ####[facility] [address] [place], [address] WBC (Bld) [#/Vol] 8.2 10*3/uL Normal 4.4-11.0 [facility] Comment on above: Performed By: #### L 100.0100, L500.2500, L503.6620 ####[facility] [address] [place], [address] Carbon dioxide measurementOr dered By: Gustabo Pérez on 04-17-2024 CO2 [Moles/Vol] 27.0 mmol/L 21.0-32.0 [facility] Cardiology Visit Reporton Cardiology Visit Report Normal [facility] Chloride measurementOrdered By: Gustabo Pérez on 04-17-2024 Chloride [Moles/Vol] 107 mmol/L 98-107 [facility] Eosinophil percentageOrdered By: Gustabo Pérez on 04-17-2024 Eosinophils/100 WBC (Bld) 1.2 % 0-5 [facility] Erythrocyte distribution wid th ratioOrdered By: Gustabo Pérez on 04-17-2024 Erythrocyte distribution width (RBC) [Ratio] 13.9 % 11.6-14.6 [facility] Erythrocyte distribution wid th standard deviationOrdered By: Gustabo Pérez on 04-17-2024 Erythrocyte distribution width (RBC) [Entitic vol] 46.4 fL High 35.1-43.9 [facility] Estimated glomerular filtrat ion rate (GFR) AmericanOrdered By: Gustabo Pérez on 04-17-2024 Estimated GFR (MDRD) Amer 47 mL/min Low >60 [facility] Comment on above: GFR Calc Glomerular filtration rate ( GFR) estimationOrdered By: Gustabo Pérez on 04-17-2024 Estimated GFR (MDRD) Non-Af Amer 39 mL/min Low >60 [facility] Comment on above: Non- GFR Calc Glucose measurementOrdered B y: Gustabo Pérez on 04-17-2024 Glucose [Mass/Vol] 228 mg/dL High 74-106 [facility] Comment on above: Glucose result great er than or equal to 200 mg/dLsuggests DIABETES MELLITUS per A.D.A. criteria. Hematocrit Auto (Bld) [Volum e fraction]Ordered By: Gustabo Pérez on 04-17-2024 Hematocrit (Bld) [Volume fraction] 41.0 % 40-54 [facility] Hemoglobin measurementOrdere d By: Gustabo Pérez on 04-17-2024 Hemoglobin (Bld) [Mass/Vol] 13.2 g/dL 13.0-16.5 [facility] Immature granulocytes/100 WB C Auto (Bld)Ordered By: Gustabo Pérez on 04-17-2024 Immature granulocytes/100 WBC (Bld) 0.600 % 0.0-0.9 [facility] Comment on above: IG% - Immature Granu locytes (promyelocytes, myelocytes and metamyelocytes) > 1% indicates that a LEFT SHIFT is Present. Lymphocytes Auto (Unsp spec) [#/Vol]Ordered By: Gustabo Pérez on 04-17-2024 Lymphocytes (Bld) [#/Vol] 1.29 10*3/uL 0.83-4.51 [facility] Lymphocytes/100 WBC Auto (Un sp spec)Ordered By: Gustabo Pérez on 04-17-2024 Lymphocytes/100 WBC (Bld) 15.7 % Low 19-41 [facility] MCV (mean corpuscular volume ) determinationOrdered By: Gustabo Pérez on 04-17-2024 MCV (RBC) [Entitic vol] 90.7 fL 80-94 [facility] Mean corpuscular hemoglobin (MCH) determinationOrdered By: Gustabo Pérez on 04-17-2024 MCH (RBC) [Entitic mass] 29.2 pg 27.0-32.0 [facility] Mean corpuscular hemoglobin concentration (MCHC) determinationOrdered By: Gustabo Pérez on 04-17-2024 MCHC (RBC) [Mass/Vol] 32.2 g/dL 32-36 [facility] Mean platelet volume determi nationOrdered By: Gustabo Pérez on 04-17-2024 Platelet mean volume (Bld) [Entitic vol] 12.3 fL High 6.2-12.0 [facility] Monocyte percentageOrdered B y: Gustabo Pérez on 04-17-2024 Monocytes/100 WBC (Bld) 8.5 % 0-10 [facility] Neutrophil percentageOrdered By: Gustabo Pérez on 04-17-2024 Neutrophils/100 WBC (Bld) 73.5 % High 47-70 [facility] Nucleated red blood cell per centageOrdered By: Gustabo Pérez on 04-17-2024 Nucleated RBC/100 WBC (Bld) [Ratio] 0 % 0-5 [facility] Platelet countOrdered By: Lydia Pérez on 04-17-2024 Platelets (Bld) [#/Vol] 185 10*3/uL 150-450 [facility] Potassium measurementOrdered By: Gustabo Pérez on 04-17-2024 Potassium [Moles/Vol] 4.8 mmol/L 3.5-5.1 [facility] RBC Auto (Bld) [#/Vol]Ordere d By: Gustabo Pérez on 04-17-2024 RBC (Bld) [#/Vol] 4.52 10*6/uL Low 4.6-6.2 [facility] Serum anion gap measurementO rdered By: Gustabo Pérez on 04-17-2024 Anion gap [Moles/Vol] 4 mmol/L Low 5-15 [facility] Serum or plasma calcium francine urement (mass/volume)Ordered By: Gustabo Pérez on 04-17-2024 Calcium [Mass/Vol] 9.0 mg/dL 8.5-10.1 [facility] Serum or plasma creatinine m easurement (mass/volume)Ordered By: Gustabo Pérez on 04-17-2024 Creatinine [Mass/Vol] 1.79 mg/dL High 0.70-1.30 [facility] Comment on above: The validity of the calculated GFR & GFRAA in patients over 70 years has not been determined. Clinical correlation is essential. Serum or plasma urea nitroge n measurement (mass/volume)Ordered By: Gustabo Pérez on 04-17-2024 Urea nitrogen [Mass/Vol] 20 mg/dL High 7-18 [facility] Sodium levelOrdered By: Gustabo Pérez on 04-17-2024 Sodium [Moles/Vol] 138 mmol/L 136-145 [facility] White blood cell (WBC) count Ordered By: Gustabo Pérez on 04-17-2024 WBC (Bld) [#/Vol] 8.2 10*3/uL 4.4-11.0 [facility] Office Visit Reporton 2023 Office Visit Report Normal [facility] Albumin to globulin ratioOrd ered By: Jose Hay on 03-23-2024 Albumin/Globulin [Mass ratio] 1.1 {ratio} 0.9-2.4 [facility] Bilirubin, totalOrdered By: Jose Hay on 03-23-2024 Bilirubin [Mass/Vol] 2.00 mg/dL High 0.20-1.00 [facility] Comment on above: For patients on eltr ombopag therapy, use of Dimension [place] TBIL is not recommended. Blood urea nitrogen (BUN)/cr eatinine ratioOrdered By: Jose Hay on 03-23-2024 Urea nitrogen/Creatinine [Mass ratio] 18.0 mg/mg 10-20 [facility] Carbon dioxide measurementOr dered By: Jose Hay on 03-23-2024 CO2 [Moles/Vol] 28.0 mmol/L 21.0-32.0 [facility] Chloride measurementOrdered By: Jose Hay on 03-23-2024 Chloride [Moles/Vol] 104 mmol/L 98-107 [facility] Comprehensive Metabolic Prof ilon 03-23-2024 Albumin [Mass/Vol] 3.7 g/dL Normal 3.2-5.0 [facility] Comment on above: Order Comment: DR REMY ORDERED BMP AND MAGNESIUM.DR HAY ORDERED LIPID CMP TSH. RANGLE Performed By: #### L 500.4050, L500.4100, L501.5200, L501.9520 ####[facility] [address] [place], [address] Albumin/Globulin [Mass ratio] 1.1 {ratio} Normal 0.9-2.4 [facility] Comment on above: Order Comment: DR REMY ORDERED BMP AND MAGNESIUM.DR HAY ORDERED LIPID CMP TSH. RANGLE Performed By: #### L 500.4050, L500.4100, L501.5200, L501.9520 ####[facility] [address] [place], [address] ALK P 92 U/L Normal 45-117 [facility] Comment on above: Order Comment: DR REMY ORDERED BMP AND MAGNESIUM.DR HAY ORDERED LIPID CMP TSH. RANGLE Performed By: #### L 500.4050, L500.4100, L501.5200, L501.9520 ####[facility] [address] [place], [address] ALT [Catalytic activity/Vol] 52 U/L Normal 16-61 [facility] Comment on above: Order Comment: DR REMY ORDERED BMP AND MAGNESIUM.DR HAY ORDERED LIPID CMP TSH. RANGLE Performed By: #### L 500.4050, L500.4100, L501.5200, L501.9520 ####[facility] [address] [place], [address] AST [Catalytic activity/Vol] 28 U/L Normal 15-37 [facility] Comment on above: Order Comment: DR REMY ORDERED BMP AND MAGNESIUM.DR HAY ORDERED LIPID CMP TSH. RANGLE Performed By: #### L 500.4050, L500.4100, L501.5200, L501.9520 ####[facility] [address] [place], [address] Bilirubin [Mass/Vol] 2.00 mg/dL High 0.20-1.00 [facility] Comment on above: Order Comment: DR REMY ORDERED BMP AND MAGNESIUM.DR HAY ORDERED LIPID CMP TSH. RANGLE Result Comment: For patients on eltrombopag therapy, use of Dimension [place] TBIL is not recommended. Performed By: #### L 500.4050, L500.4100, L501.5200, L501.9520 ####[facility] [address] [place], [address] BUN/CRE 18.0 RATIO Normal 10-20 [facility] Comment on above: Order Comment: DR REMY ORDERED BMP AND MAGNESIUM.DR HAY ORDERED LIPID CMP TSH. RANGLE Performed By: #### L 500.4050, L500.4100, L501.5200, L501.9520 ####[facility] [address] [place], [address] CA,Total 8.8 mg/dL Normal 8.5-10.1 [facility] Comment on above: Order Comment: DR REMY ORDERED BMP AND MAGNESIUM.DR HAY ORDERED LIPID CMP TSH. RANGLE Performed By: #### L 500.4050, L500.4100, L501.5200, L501.9520 ####[facility] [address] [place], [address] Chloride [Moles/Vol] 104 mmol/L Normal 98-107 [facility] Comment on above: Order Comment: DR REMY ORDERED BMP AND MAGNESIUM.DR HAY ORDERED LIPID CMP TSH. RANGLE Performed By: #### L 500.4050, L500.4100, L501.5200, L501.9520 ####[facility] [address] [place], [address] CO2 [Moles/Vol] 28.0 mmol/L Normal 21.0-32.0 [facility] Comment on above: Order Comment: DR REMY ORDERED BMP AND MAGNESIUM.DR HAY ORDERED LIPID CMP TSH. RANGLE Performed By: #### L 500.4050, L500.4100, L501.5200, L501.9520 ####[facility] [address] [place], [address] Creatinine [Mass/Vol] 1.67 mg/dL High 0.70-1.30 [facility] Comment on above: Order Comment: DR REMY ORDERED BMP AND MAGNESIUM.DR HAY ORDERED LIPID CMP TSH. RANGLE Result Comment: The validity of the calculated GFR GFRAA in patients over70 years has not been determined. Clinical correlation isessential. Performed By: #### L 500.4050, L500.4100, L501.5200, L501.9520 ####[facility] [address] [place], [address] EST GFR - AA 51 mL/min Low >60 [facility] Comment on above: Order Comment: DR REMY ORDERED BMP AND MAGNESIUM.DR HAY ORDERED LIPID CMP TSH. RANGLE Result Comment: Afri can Swazi GFR Calc Performed By: #### L 500.4050, L500.4100, L501.5200, L501.9520 ####[facility] [address] [place], [address] GAP 6 Normal 5-15 [facility] Comment on above: Order Comment: DR REMY ORDERED BMP AND MAGNESIUM.DR HAY ORDERED LIPID CMP TSH. RANGLE Performed By: #### L 500.4050, L500.4100, L501.5200, L501.9520 ####[facility] [address] [place], [address] GFR/1.73 sq M.predicted among non-blacks MDRD (S/P/Bld) [Vol rate/Area] 42 mL/min/{1.73_m2} Low >60 [facility] Comment on above: Order Comment: DR REMY ORDERED BMP AND MAGNESIUM.DR HAY ORDERED LIPID CMP TSH. RANGLE Result Comment: Non- GFR Calc Performed By: #### L 500.4050, L500.4100, L501.5200, L501.9520 ####[facility] [id number] [place], [address] Globulin (S) [Mass/Vol] 3.3 g/dL Normal 2.2-4.2 [facility] Comment on above: Order Comment: DR REMY ORDERED BMP AND MAGNESIUM.DR HAY ORDERED LIPID CMP TSH. RANGLE Performed By: #### L 500.4050, L500.4100, L501.5200, L501.9520 ####[facility] [id number] [place], [address] Glucose [Mass/Vol] 146 mg/dL High 74-106 [facility] Comment on above: Order Comment: DR REMY ORDERED BMP AND MAGNESIUM.DR HAY ORDERED LIPID CMP TSH. RANGLE Result Comment: Fast ing Glucose result greater than or equal to 126 mg/dLsuggests DIABETES MELLITUS per A.D.A. criteria. Performed By: #### L 500.4050, L500.4100, L501.5200, L501.9520 ####[facility] [id number] [place], [address] Potassium [Moles/Vol] 4.4 mmol/L Normal 3.5-5.1 [facility] Comment on above: Order Comment: DR REMY ORDERED BMP AND MAGNESIUM.DR HAY ORDERED LIPID CMP TSH. RANGLE Performed By: #### L 500.4050, L500.4100, L501.5200, L501.9520 ####[facility] [id number] [place], [address] Sodium [Moles/Vol] 138 mmol/L Normal 136-145 [facility] Comment on above: Order Comment: DR REMY ORDERED BMP AND MAGNESIUM.DR HAY ORDERED LIPID CMP TSH. RANGLE Performed By: #### L 500.4050, L500.4100, L501.5200, L501.9520 ####[facility] [address] [place], [address] T PROT 7.0 g/dL Normal 6.4-8.2 [facility] Comment on above: Order Comment: DR REMY ORDERED BMP AND MAGNESIUM.DR HAY ORDERED LIPID CMP TSH. RANGLE Performed By: #### L 500.4050, L500.4100, L501.5200, L501.9520 ####[facility] [id number] [place], [address] Urea nitrogen [Mass/Vol] 30 mg/dL High 7-18 [facility] Comment on above: Order Comment: DR REMY ORDERED BMP AND MAGNESIUM.DR HAY ORDERED LIPID CMP TSH. RANGLE Performed By: #### L 500.4050, L500.4100, L501.5200, L501.9520 ####[facility] [address] [place], [place], [id number] Estimated glomerular filtrat ion rate (GFR) AmericanOrdered By: Jose Hay on 03-23-2024 Estimated GFR (MDRD) Amer 51 mL/min Low >60 [facility] Comment on above: GFR Calc Glomerular filtration rate ( GFR) estimationOrdered By: Jose Hay on 03-23-2024 Estimated GFR (MDRD) Non-Af Amer 42 mL/min Low >60 [facility] Comment on above: Non- GFR Calc Glucose measurementOrdered B y: Jose Hay on 03-23-2024 Glucose [Mass/Vol] 146 mg/dL High 74-106 [facility] Comment on above: Fasting Glucose resu lt greater than or equal to 126 mg/dL suggests DIABETES MELLITUS per A.D.A. criteria. High density lipoprotein (HD L) measurementOrdered By: Jose Hay on 03-23-2024 Cholesterol in HDL [Mass/Vol] 52 mg/dL >40 [facility] Comment on above: The drugs N-Acetylcy steine and Metamizole may falsely depress this assay. Reference Range HDL <40 mg/dL Low HDL Cholesterol HDL >or= 60 mg/dL High HDL Cholesterol Laboratory - Chemistry and C hemistry - challengeOrdered By: Jose Hay on 03-23-2024 AST [Catalytic activity/Vol] 28 U/L 15-37 [facility] Lipid Profileon 03-23-2024 Cholesterol [Mass/Vol] 158 mg/dL Normal 200 [facility] Comment on above: Order Comment: DR REMY ORDERED BMP AND MAGNESIUM.DR HAY ORDERED LIPID CMP TSH. RANGLE Result Comment: <200 mg/dL Desirable 200-240 mg/dL Borderline >240 mg/dL High Risk Performed By: #### L 500.4050, L500.4100, L501.5200, L501.9520 ####[facility] [address] [place], [address] Cholesterol in HDL [Mass/Vol] 52 mg/dL Normal [facility] Comment on above: Order Comment: DR REMY ORDERED BMP AND MAGNESIUM.DR HAY ORDERED LIPID CMP TSH. RANGLE Result Comment: The drugs N-Acetylcysteine and Metamizole may falselydepress this assay. Reference Range HDL <40 mg/dL Low HDL Cholesterol HDL >or= 60 mg/dL High HDL Cholesterol Performed By: #### L 500.4050, L500.4100, L501.5200, L501.9520 ####[facility] [id number] [place], [address] Cholesterol in LDL [Mass/Vol] 61 mg/dL Normal 0-130 [facility] Comment on above: Order Comment: DR REMY ORDERED BMP AND MAGNESIUM.DR HAY ORDERED LIPID CMP TSH. RANGLE Performed By: #### L 500.4050, L500.4100, L501.5200, L501.9520 ####[facility] [address] [place], [address] Cholesterol in VLDL [Mass/Vol] 45 mg/dL High 5-40 [facility] Comment on above: Order Comment: DR REMY ORDERED BMP AND MAGNESIUM.DR HAY ORDERED LIPID CMP TSH. RANGLE Performed By: #### L 500.4050, L500.4100, L501.5200, L501.9520 ####[facility] [address] [place], [address] Triglyceride [Mass/Vol] 225 mg/dL High [facility] Comment on above: Order Comment: DR REMY ORDERED BMP AND MAGNESIUM.DR HAY ORDERED LIPID CMP TSH. RANGLE Result Comment: The drugs N-Acetylcysteine and Metamizole may falselydepress this assay.Serum Triglycerides Reference Interval Normal <150 mg/dL Borderline high 150 - 199 mg/dL High 200 - 499 mg/dL Very High > or = 500 mg/dL Performed By: #### L 500.4050, L500.4100, L501.5200, L501.9520 ####[facility] [address] [place], [address] Low density lipoprotein (LDL ) cholesterol measurementOrdered By: Jose Hay on 03-23-2024 Cholesterol in LDL [Mass/Vol] 61 mg/dL 0-130 [facility] Magnesiumon 03-23-2024 Magnesium [Mass/Vol] 2.1 mg/dL Normal 1.6-2.6 [facility] Comment on above: Order Comment: DR REMY ORDERED BMP AND MAGNESIUM.DR HAY ORDERED LIPID CMP TSH. RANGLE Performed By: #### L 500.4050, L500.4100, L501.5200, L501.9520 ####[facility] [id number] [place], [place], [id number] Magnesium measurementOrdered By: Jose Hay on 03-23-2024 Magnesium [Mass/Vol] 2.1 mg/dL 1.6-2.6 [facility] Potassium measurementOrdered By: Jose Hay on 03-23-2024 Potassium [Moles/Vol] 4.4 mmol/L 3.5-5.1 [facility] Serum anion gap measurementO rdered By: Jose Hay on 03-23-2024 Anion gap [Moles/Vol] 6 mmol/L 5-15 [facility] Serum globulin measurementOr dered By: Jose Hay on 03-23-2024 Globulin (S) [Mass/Vol] 3.3 g/dL 2.2-4.2 [facility] Serum or plasma alanine guerrero otransferase (ALT) measurementOrdered By: Jose Hay on 03-23-2024 ALT [Catalytic activity/Vol] 52 U/L 16-61 [facility] Serum or plasma albumin francine urement (mass/volume)Ordered By: Jose Hay on 03-23-2024 Albumin [Mass/Vol] 3.7 g/dL 3.2-5.0 [facility] Serum or plasma alkaline bell sphatase measurementOrdered By: Jose Hay on 03-23-2024 ALP [Catalytic activity/Vol] 92 U/L 45-117 [facility] Serum or plasma calcium francine urement (mass/volume)Ordered By: Jose Hay on 03-23-2024 Calcium [Mass/Vol] 8.8 mg/dL 8.5-10.1 [facility] Serum or plasma cholesterol measurement (mass/volume)Ordered By: Jose Hay on 03-23-2024 Cholesterol [Mass/Vol] 158 mg/dL <200 [facility] Comment on above: <200 mg/dL Desirable 200-240 mg/dL Borderline >240 mg/dL High Risk Serum or plasma creatinine m easurement (mass/volume)Ordered By: Jose Hay on 03-23-2024 Creatinine [Mass/Vol] 1.67 mg/dL High 0.70-1.30 [facility] Comment on above: The validity of the calculated GFR & GFRAA in patients over 70 years has not been determined. Clinical correlation is essential. Serum or plasma urea nitroge n measurement (mass/volume)Ordered By: Jose Hay on 03-23-2024 Urea nitrogen [Mass/Vol] 30 mg/dL High 7-18 [facility] Sodium levelOrdered By: Ernst Hay on 03-23-2024 Sodium [Moles/Vol] 138 mmol/L 136-145 [facility] TSH QnOrdered By: Jose rodriguez on 03-23-2024 Thyroid Stimulating Hormone (TSH) 5.340 uIU/mL High 0.358-3.74 0 [facility] Thyroid Stim Hormone (TSH)on 03-23-2024 TSH 5.340 uIU/mL High 0.358-3.74 0 [facility] Comment on above: Order Comment: DR REMY ORDERED BMP AND MAGNESIUM.DR HAY ORDERED LIPID CMP TSH. RANGLE Performed By: #### L 500.4050, L500.4100, L501.5200, L501.9520 ####[facility] [id number] [place], [address] Total proteinOrdered By: Emmanuel Hay on 03-23-2024 Protein [Mass/Vol] 7.0 g/dL 6.4-8.2 [facility] Triglycerides measurementOrd ered By: Jose Hay on 03-23-2024 Triglyceride [Mass/Vol] 225 mg/dL High <199 [facility] Comment on above: The drugs N-Acetylcy steine and Metamizole may falsely depress this assay.Serum Triglycerides Reference Interval Normal <150 mg/dL Borderline high 150 - 199 mg/dL High 200 - 499 mg/dL Very High > or = 500 mg/dL Very low density lipoprotein (VLDL) cholesterol measurementOrdered By: Jose Hay on 03-23-2024 VLDL Cholesterol 45 mg/dL High 5-40 [facility] Cardiology Visit Reporton Cardiology Visit Report Normal [facility] Basophil percentageOrdered B y: Marycarmen Rodriguez on 05-07-2023 Chloride [Moles/Vol] 103 mmol/L 98-107 [facility] Glucose [Mass/Vol] 172 mg/dL 74-106 [facility] Comment on above: Fasting Glucose resu lt greater than or equal to 126 mg/dL suggests DIABETES MELLITUS per A.D.A. criteria. Potassium [Moles/Vol] 3.7 mmol/L 3.5-5.1 [facility] Sodium [Moles/Vol] 138 mmol/L 136-145 [facility] Laboratory - Chemistry and C hemistry - challengeOrdered By: Marycarmen Rodriguez on 05-07-2023 CO2 [Moles/Vol] 27.0 mmol/L 21.0-32.0 [facility] Urea nitrogen/Creatinine [Mass ratio] 13.9 mg/mg 10-20 [facility] No Panel InformationOrdered By: Marycarmen Rodriguez on 05-07-2023 Estimated GFR (MDRD) Amer 74 mL/min >60 [facility] Comment on above: GFR Calc Estimated GFR (MDRD) Non-Af Amer 61 mL/min >60 [facility] Comment on above: Non- GFR Calc Serum or plasma calcium francine urement (mass/volume)Ordered By: Marycarmen Rodriguez on 05-07-2023 Calcium [Mass/Vol] 8.6 mg/dL 8.5-10.1 [facility] Serum or plasma creatinine m easurement (mass/volume)Ordered By: Marycarmen Rodriguez on 05-07-2023 Creatinine [Mass/Vol] 1.22 mg/dL 0.70-1.30 [facility] Comment on above: The validity of the calculated GFR & GFRAA in patients over 70 years has not been determined. Clinical correlation is essential. Serum or plasma urea nitroge n measurement (mass/volume)Ordered By: Marycarmen Rodriguez on 05-07-2023 Urea nitrogen [Mass/Vol] 17 mg/dL 7-18 [facility] Thin prep Papanicolaou smear with manual screeningOrdered By: Marycarmen Rodriguez on 05-07-2023 Thin prep Papanicolaou smear with manual screening 8 -15 [facility] Basophil percentageOrdered B y: Jose Hay on 12-15-2022 Chloride [Moles/Vol] 110 mmol/L 98-107 [facility] Glucose [Mass/Vol] 121 mg/dL 74-106 [facility] Comment on above: Fasting Glucose resu lt from 100 to 125 mg/dL suggests IMPAIRED HOMEOSTASIS per A.D.A. criteria. Potassium [Moles/Vol] 4.0 mmol/L 3.5-5.1 [facility] Sodium [Moles/Vol] 139 mmol/L 136-145 [facility] WBC (Bld) [#/Vol] 7.3 10*3/uL 4.4-11.0 [facility] Blood erythrocytes count (nu mber/volume)Ordered By: Jose Hay on 12-15-2022 RBC (Bld) [#/Vol] 5.18 10*6/uL 4.6-6.2 [facility] Blood hemoglobin measurement (mass/volume)Ordered By: Jose Hay on 12-15-2022 Hemoglobin (Bld) [Mass/Vol] 15.2 g/dL 13.0-16.5 [facility] Blood platelet mean volumeOr dered By: Jose Hay on 12-15-2022 Platelet mean volume (Bld) [Entitic vol] 12.2 fL 6.2-12.0 [facility] Determination of erythrocyte mean corpuscular volume (MCV)Ordered By: Jose Hay on 12-15-2022 MCV (RBC) [Entitic vol] 90.2 fL 80-94 [facility] Hematocrit Auto (Bld) [Volum e fraction]Ordered By: Jose Hay on 12-15-2022 Hematocrit (Bld) [Volume fraction] 46.7 % 40-54 [facility] Laboratory - Chemistry and C hemistry - challengeOrdered By: Jose Hay on 12-15-2022 CO2 [Moles/Vol] 23.0 mmol/L 21.0-32.0 [facility] Natriuretic peptide B (Bld) [Mass/Vol] 38.1 pg/mL 0-100 [facility] Urea nitrogen/Creatinine [Mass ratio] 13.5 mg/mg 10-20 [facility] Laboratory - Hematology and Cell countsOrdered By: Jose Hay on 12-15-2022 Erythrocyte distribution width (RBC) [Entitic vol] 47.5 fL 35.1-43.9 [facility] Erythrocyte distribution width (RBC) [Ratio] 14.4 % 11.6-14.6 [facility] MCH (RBC) [Entitic mass] 29.3 pg 27.0-32.0 [facility] MCHC Auto (RBC) [Mass/Vol]Or dered By: Jose Hay on 12-15-2022 MCHC (RBC) [Mass/Vol] 32.5 g/dL 32-36 [facility] No Panel InformationOrdered By: Jose Hay on 12-15-2022 Estimated GFR (MDRD) Amer 83 mL/min >60 [facility] Comment on above: GFR Calc Estimated GFR (MDRD) Non-Af Amer 68 mL/min >60 [facility] Comment on above: Non- GFR Calc Platelets bldOrdered By: Emmanuel Hay on 12-15-2022 Platelets (Bld) [#/Vol] 143 10*3/uL 150-450 [facility] Serum or plasma calcium francine urement (mass/volume)Ordered By: Jose Hay on 12-15-2022 Calcium [Mass/Vol] 8.8 mg/dL 8.5-10.1 [facility] Serum or plasma creatinine m easurement (mass/volume)Ordered By: Jose Hay on 12-15-2022 Creatinine [Mass/Vol] 1.11 mg/dL 0.70-1.30 [facility] Comment on above: The validity of the calculated GFR & GFRAA in patients over 70 years has not been determined. Clinical correlation is essential. Serum or plasma urea nitroge n measurement (mass/volume)Ordered By: Jose Hay on 12-15-2022 Urea nitrogen [Mass/Vol] 15 mg/dL 7-18 [facility] Thin prep Papanicolaou smear with manual screeningOrdered By: Josejina Hay on 12-15-2022 Thin prep Papanicolaou smear with manual screening 6 - [facility] Absolute lymphocyte countOrd ered By: Luz Elena Mckeon on 10-13-2022 Lymphocytes Auto (Unsp spec) [#/Vol] 1.21 10*3/uL 0.83-4.51 [facility] Basophil percentageOrdered B y: Luz Elena Mckeon on 10-13-2022 Basophils/100 WBC (Bld) 0.5 % 0-1 [facility] Chloride [Moles/Vol] 106 mmol/L 98-107 [facility] Eosinophils/100 WBC (Bld) 1.4 % 0-5 [facility] Glucose [Mass/Vol] 277 mg/dL 74-106 [facility] Comment on above: Glucose result great er than or equal to 200 mg/dLsuggests DIABETES MELLITUS per A.D.A. criteria. Neutrophils (Bld) [#/Vol] 4.0 10*3/uL 2.0-7.7 [facility] Neutrophils/100 WBC (Bld) 68.5 % 47-70 [facility] Potassium [Moles/Vol] 4.1 mmol/L 3.5-5.1 [facility] Sodium [Moles/Vol] 139 mmol/L 136-145 [facility] WBC (Bld) [#/Vol] 5.8 10*3/uL 4.4-11.0 [facility] Blood erythrocytes count (nu mber/volume)Ordered By: Luz Elena Mckeon on 10-13-2022 RBC (Bld) [#/Vol] 4.66 10*6/uL 4.6-6.2 [facility] Blood hemoglobin measurement (mass/volume)Ordered By: Luz Elena Mckeon on 10-13-2022 Hemoglobin (Bld) [Mass/Vol] 13.6 g/dL 13.0-16.5 [facility] Blood lymphocytes/100 leukoc ytesOrdered By: Luz Elena Mckeon on 10-13-2022 Lymphocytes/100 WBC (Bld) 20.7 % 19-41 [facility] Blood monocytes/100 leukocyt esOrdered By: Luz Elena Mckeon on 10-13-2022 Monocytes/100 WBC (Bld) 8.6 % 0-10 [facility] Blood platelet mean volumeOr dered By: Luz Elena Mckeon on 10-13-2022 Platelet mean volume (Bld) [Entitic vol] 12.6 fL 6.2-12.0 [facility] Determination of erythrocyte mean corpuscular volume (MCV)Ordered By: Luz Elena Mckeon on 10-13-2022 MCV (RBC) [Entitic vol] 89.5 fL 80-94 [facility] Hematocrit Auto (Bld) [Volum e fraction]Ordered By: Luz Elena Mckeon on 10-13-2022 Hematocrit (Bld) [Volume fraction] 41.7 % 40-54 [facility] Laboratory - Chemistry and C hemistry - challengeOrdered By: Luz Elena Mckeon on 10-13-2022 CO2 [Moles/Vol] 27.0 mmol/L 21.0-32.0 [facility] Free T4 [Mass/Vol] 0.77 ng/dL 0.76-1.46 [facility] Magnesium [Mass/Vol] 2.1 mg/dL 1.6-2.6 [facility] Natriuretic peptide B (Bld) [Mass/Vol] 47.2 pg/mL 0-100 [facility] Urea nitrogen/Creatinine [Mass ratio] 17.2 mg/mg 10-20 [facility] Laboratory - Hematology and Cell countsOrdered By: Luz Elena Mckeon on 10-13-2022 Erythrocyte distribution width (RBC) [Entitic vol] 46.1 fL 35.1-43.9 [facility] Erythrocyte distribution width (RBC) [Ratio] 14.1 % 11.6-14.6 [facility] Immature granulocytes/100 WBC (Bld) 0.300 % 0.0-0.9 [facility] Comment on above: IG% - Immature Granu locytes (promyelocytes, myelocytes and metamyelocytes) > 1% indicates that a LEFT SHIFT is Present. MCH (RBC) [Entitic mass] 29.2 pg 27.0-32.0 [facility] Nucleated RBC/100 WBC (Bld) [Ratio] 0 % 0-5 [facility] MCHC Auto (RBC) [Mass/Vol]Or dered By: Luz Elena Mckeon on 10-13-2022 MCHC (RBC) [Mass/Vol] 32.6 g/dL 32-36 [facility] No Panel InformationOrdered By: Luz Elena Mckeon on 10-13-2022 Estimated GFR (MDRD) Amer 61 mL/min >60 [facility] Comment on above: GFR Calc Estimated GFR (MDRD) Non-Af Amer 50 mL/min >60 [facility] Comment on above: Non- GFR Calc Free Triiodothyronine (T3) pg/dL 2.7 pg/mL 2.18-3.98 [facility] Thyroid Stimulating Hormone (TSH) 4.12 uIU/mL 0.358-3.74 [facility] Platelets bldOrdered By: Loco Mckeon on 10-13-2022 Platelets (Bld) [#/Vol] 126 10*3/uL 150-450 [facility] Serum or plasma calcium francine urement (mass/volume)Ordered By: Luz Elena Mckeon on 10-13-2022 Calcium [Mass/Vol] 8.5 mg/dL 8.5-10.1 [facility] Serum or plasma creatinine m easurement (mass/volume)Ordered By: Luz Elena Mckeon on 10-13-2022 Creatinine [Mass/Vol] 1.45 mg/dL 0.70-1.30 [facility] Comment on above: The validity of the calculated GFR & GFRAA in patients over 70 years has not been determined. Clinical correlation is essential. Serum or plasma urea nitroge n measurement (mass/volume)Ordered By: Luz Elena Mckeon on 10-13-2022 Urea nitrogen [Mass/Vol] 25 mg/dL 7-18 [facility] Thin prep Papanicolaou smear with manual screeningOrdered By: Luz Elena Mckeon on 10-13-2022 Thin prep Papanicolaou smear with manual screening 6 5-15 [facility] COVID-19 virus antigen assay Ordered By: Shaan Santos on 09-21-2022 SARS-CoV-2 (COVID-19) Ag IA.rapid Ql (Resp) [facility] COVID-19 virus antigen assay Ordered By: Dr. Santos on 09-21-2022 SARS-CoV-2 (COVID-19) Ag IA.rapid Ql (Resp) [facility] Glucose Glucometer (BldC) [M ass/Vol]Ordered By: Dr. Santos on 09-21-2022 Glucose [Mass/Vol] 193 mg/dL 74-106 [facility] Comment on above: MANAGEMENT OF PATIEN T CARE PER NURSING PROTOCOL Absolute lymphocyte countOrd ered By: Dr. Leo on 09-18-2022 Lymphocytes Auto (Unsp spec) [#/Vol] 1.83 10*3/uL 0.83-4.51 [facility] Basophil percentageOrdered B y: Dr. Leo on 09-18-2022 Basophils/100 WBC (Bld) 0.3 % 0-1 [facility] Bilirubin [Mass/Vol] 1.20 mg/dL 0.20-1.00 [facility] Comment on above: For patients on eltr ombopag therapy, use of Dimension [place] TBIL is not recommended. Chloride [Moles/Vol] 108 mmol/L 98-107 [facility] Cholesterol [Mass/Vol] 114 mg/dL <200 [facility] Comment on above: <200 mg/dL Desirable 200-240 mg/dL Borderline >240 mg/dL High Risk Eosinophils/100 WBC (Bld) 2.0 % 0-5 [facility] Glucose [Mass/Vol] 87 mg/dL 74-106 [facility] Neutrophils (Bld) [#/Vol] 4.3 10*3/uL 2.0-7.7 [facility] Neutrophils/100 WBC (Bld) 60.9 % 47-70 [facility] Potassium [Moles/Vol] 3.5 mmol/L 3.5-5.1 [facility] Protein [Mass/Vol] 5.9 g/dL 6.4-8.2 [facility] Sodium [Moles/Vol] 142 mmol/L 136-145 [facility] Triglyceride [Mass/Vol] 174 mg/dL <199 [facility] Comment on above: The drugs N-Acetylcy steine and Metamizole may falsely depress this assay.Serum Triglycerides Reference Interval Normal <150 mg/dL Borderline high 150 - 199 mg/dL High 200 - 499 mg/dL Very High > or = 500 mg/dL WBC (Bld) [#/Vol] 7.0 10*3/uL 4.4-11.0 [facility] Blood erythrocytes count (nu mber/volume)Ordered By: Dr. Leo on 09-18-2022 RBC (Bld) [#/Vol] 4.64 10*6/uL 4.6-6.2 [facility] Blood hemoglobin measurement (mass/volume)Ordered By: Dr. Leo on 09-18-2022 Hemoglobin (Bld) [Mass/Vol] 13.2 g/dL 13.0-16.5 [facility] Blood lymphocytes/100 leukoc ytesOrdered By: Dr. Leo on 09-18-2022 Lymphocytes/100 WBC (Bld) 26.1 % 19-41 [facility] Blood monocytes/100 leukocyt esOrdered By: Dr. Leo on 09-18-2022 Monocytes/100 WBC (Bld) 10.4 % 0-10 [facility] Blood platelet mean volumeOr dered By: Dr. Leo on 09-18-2022 Platelet mean volume (Bld) [Entitic vol] 12.3 fL 6.2-12.0 [facility] Determination of erythrocyte mean corpuscular volume (MCV)Ordered By: Dr. Leo on 09-18-2022 MCV (RBC) [Entitic vol] 90.1 fL 80-94 [facility] Hematocrit Auto (Bld) [Volum e fraction]Ordered By: Dr. Leo on 09-18-2022 Hematocrit (Bld) [Volume fraction] 41.8 % 40-54 [facility] Laboratory - Chemistry and C hemistry - challengeOrdered By: Dr. Leo on 09-18-2022 ALP [Catalytic activity/Vol] 113 U/L 45-117 [facility] ALT [Catalytic activity/Vol] 31 U/L 16-61 [facility] CO2 [Moles/Vol] 26.0 mmol/L 21.0-32.0 [facility] Globulin (S) [Mass/Vol] 3.0 g/dL 2.2-4.2 [facility] Urea nitrogen/Creatinine [Mass ratio] 13.4 mg/mg 10-20 [facility] Laboratory - Hematology and Cell countsOrdered By: Dr. Leo on 09-18-2022 Erythrocyte distribution width (RBC) [Entitic vol] 46.9 fL 35.1-43.9 [facility] Erythrocyte distribution width (RBC) [Ratio] 14.4 % 11.6-14.6 [facility] Immature granulocytes/100 WBC (Bld) 0.300 % 0.0-0.9 [facility] Comment on above: IG% - Immature Granu locytes (promyelocytes, myelocytes and metamyelocytes) > 1% indicates that a LEFT SHIFT is Present. MCH (RBC) [Entitic mass] 28.4 pg 27.0-32.0 [facility] Nucleated RBC/100 WBC (Bld) [Ratio] 0 % 0-5 [facility] MCHC Auto (RBC) [Mass/Vol]Or dered By: Dr. Leo on 09-18-2022 MCHC (RBC) [Mass/Vol] 31.6 g/dL 32-36 [facility] No Panel InformationOrdered By: Dr. Leo on 09-18-2022 Estimated Creatinine Clearance Calc 47.13 ml/min [facility] Estimated GFR (MDRD) Amer 71 mL/min >60 [facility] Comment on above: GFR Calc Estimated GFR (MDRD) Non-Af Amer 58 mL/min >60 [facility] Comment on above: Non- GFR Calc Thyroid Stimulating Hormone (TSH) 3.64 uIU/mL 0.358-3.74 [facility] Troponin I High Sensitivity 8 pg/mL 3.0-78.0 [facility] Comment on above: Please Note: [place] t Units and Gender Specific Reference Ranges. For more information see Policy Stat Procedure [place] High Sensitivity Troponin (TNIH) and attachments. Platelets bldOrdered By: Dr. Leo on 09-18-2022 Platelets (Bld) [#/Vol] 131 10*3/uL 150-450 [facility] Serum or plasma albumin francine urement (mass/volume)Ordered By: Dr. Leo on 09-18-2022 Albumin [Mass/Vol] 2.9 g/dL 3.2-5.0 [facility] Serum or plasma albumin/glob ulin mass ratioOrdered By: Dr. Leo on 09-18-2022 Albumin/Globulin [Mass ratio] 1.0 {ratio} 0.9-2.4 [facility] Serum or plasma calcium francine urement (mass/volume)Ordered By: Dr. Leo on 09-18-2022 Calcium [Mass/Vol] 7.6 mg/dL 8.5-10.1 [facility] Serum or plasma cholesterol in HDL measurement (mass/volume)Ordered By: Dr. Leo on 09-18-2022 Cholesterol in HDL [Mass/Vol] 36 mg/dL >40 [facility] Comment on above: The drugs N-Acetylcy steine and Metamizole may falsely depress this assay. Reference Range HDL <40 mg/dL Low HDL Cholesterol HDL >or= 60 mg/dL High HDL Cholesterol Serum or plasma cholesterol in VLDL measurement (mass/volume)Ordered By: Dr. Leo on 09-18-2022 Cholesterol in VLDL [Mass/Vol] 35 mg/dL 5-40 [facility] Serum or plasma creatinine m easurement (mass/volume)Ordered By: Dr. Leo on 09-18-2022 Creatinine [Mass/Vol] 1.27 mg/dL 0.70-1.30 [facility] Comment on above: The validity of the calculated GFR & GFRAA in patients over 70 years has not been determined. Clinical correlation is essential. Serum or plasma low density lipoprotein (LDL) cholesterol measurement (mass/volume)Ordered By: Dr. Leo on 05-19-2023 Cholesterol in LDL [Mass/Vol] 43 mg/dL 0-130 [facility] Serum or plasma urea nitroge n measurement (mass/volume)Ordered By: Dr. Leo on 09-18-2022 Urea nitrogen [Mass/Vol] 17 mg/dL 7-18 [facility] Thin prep Papanicolaou smear with manual screeningOrdered By: Dr. Leo on 09-18-2022 Thin prep Papanicolaou smear with manual screening 21 U/L 15-37 [facility] Thin prep Papanicolaou smear with manual screening 8 5-15 [facility] Whole blood hemoglobin A1c/t otal hemoglobin ratio (mass fraction)Ordered By: Dr. Leo on 09-18-2022 HbA1c (Bld) [Mass fraction] 7.7 % 3.8-5.6 [facility] Comment on above: Normal < 5.7 % Predi abetic 5.7 - 6.4 % Diabetic >or= 6.5 % Please note range changes. INR in Blood by Coagulation assayOrdered By: Dr. Hall on 09-17-2022 INR Coag (Bld) [Relative time] 0.9 {INR} [facility] Laboratory - Chemistry and C hemistry - challengeOrdered By: Dr. Leo on 09-17-2022 Magnesium [Mass/Vol] 2.3 mg/dL 1.6-2.6 [facility] Laboratory - CoagulationOrde red By: Dr. Hall on 09-17-2022 aPTT Coag (Bld) [Time] 32.1 s 24.1-36.2 [facility] PT Coag (PPP) [Time] 12.3 s 11.7-14.9 [facility] Basophil percentageOrdered B y: Dr. Hay on 09-01-2022 Bilirubin [Mass/Vol] 0.70 mg/dL 0.20-1.00 [facility] Comment on above: For patients on eltr ombopag therapy, use of Dimension [place] TBIL is not recommended. Chloride [Moles/Vol] 112 mmol/L 98-107 [facility] Glucose [Mass/Vol] 151 mg/dL 74-106 [facility] Comment on above: Fasting Glucose resu lt greater than or equal to 126 mg/dL suggests DIABETES MELLITUS per A.D.A. criteria. Potassium [Moles/Vol] 3.9 mmol/L 3.5-5.1 [facility] Protein [Mass/Vol] 5.7 g/dL 6.4-8.2 [facility] Sodium [Moles/Vol] 142 mmol/L 136-145 [facility] WBC (Bld) [#/Vol] 4.7 10*3/uL 4.4-11.0 [facility] Blood erythrocytes count (nu mber/volume)Ordered By: Dr. Hay on 09-01-2022 RBC (Bld) [#/Vol] 4.60 10*6/uL 4.6-6.2 [facility] Blood hemoglobin measurement (mass/volume)Ordered By: Dr. Hay on 09-01-2022 Hemoglobin (Bld) [Mass/Vol] 13.0 g/dL 13.0-16.5 [facility] Blood platelet mean volumeOr dered By: Dr. Hay on 09-01-2022 Platelet mean volume (Bld) [Entitic vol] 12.8 fL 6.2-12.0 [facility] Determination of erythrocyte mean corpuscular volume (MCV)Ordered By: Dr. Hay on 09-01-2022 MCV (RBC) [Entitic vol] 89.1 fL 80-94 [facility] Hematocrit Auto (Bld) [Volum e fraction]Ordered By: Dr. Hay on 09-01-2022 Hematocrit (Bld) [Volume fraction] 41.0 % 40-54 [facility] Laboratory - Chemistry and C hemistry - challengeOrdered By: Dr. Hay on 09-01-2022 ALP [Catalytic activity/Vol] 149 U/L 45-117 [facility] ALT [Catalytic activity/Vol] 35 U/L 16-61 [facility] CO2 [Moles/Vol] 27.0 mmol/L 21.0-32.0 [facility] Globulin (S) [Mass/Vol] 2.9 g/dL 2.2-4.2 [facility] Urea nitrogen/Creatinine [Mass ratio] 15.8 mg/mg 10-20 [facility] Laboratory - Hematology and Cell countsOrdered By: Dr. Hay on 09-01-2022 Erythrocyte distribution width (RBC) [Entitic vol] 44.1 fL 35.1-43.9 [facility] Erythrocyte distribution width (RBC) [Ratio] 13.5 % 11.6-14.6 [facility] MCH (RBC) [Entitic mass] 28.3 pg 27.0-32.0 [facility] MCHC Auto (RBC) [Mass/Vol]Or dered By: Dr. Hay on 09-01-2022 MCHC (RBC) [Mass/Vol] 31.7 g/dL 32-36 [facility] No Panel InformationOrdered By: Dr. Hay on 09-01-2022 Estimated Creatinine Clearance Calc 46.51 ml/min [facility] Estimated GFR (MDRD) Amer 67 mL/min >60 [facility] Comment on above: GFR Calc Estimated GFR (MDRD) Non-Af Amer 55 mL/min >60 [facility] Comment on above: Non- GFR Calc Platelets bldOrdered By: Dr. Hay on 09-01-2022 Platelets (Bld) [#/Vol] 106 10*3/uL 150-450 [facility] Serum or plasma albumin francine urement (mass/volume)Ordered By: Dr. Hay on 09-01-2022 Albumin [Mass/Vol] 2.8 g/dL 3.2-5.0 [facility] Serum or plasma albumin/glob ulin mass ratioOrdered By: Dr. Hay on 09-01-2022 Albumin/Globulin [Mass ratio] 1.0 {ratio} 0.9-2.4 [facility] Serum or plasma calcium francine urement (mass/volume)Ordered By: Dr. Hay on 09-01-2022 Calcium [Mass/Vol] 8.0 mg/dL 8.5-10.1 [facility] Serum or plasma creatinine m easurement (mass/volume)Ordered By: Dr. Hay on 09-01-2022 Creatinine [Mass/Vol] 1.33 mg/dL 0.70-1.30 [facility] Comment on above: The validity of the calculated GFR & GFRAA in patients over 70 years has not been determined. Clinical correlation is essential. Serum or plasma urea nitroge n measurement (mass/volume)Ordered By: Dr. Hay on 09-01-2022 Urea nitrogen [Mass/Vol] 21 mg/dL 7-18 [facility] Thin prep Papanicolaou smear with manual screeningOrdered By: Dr. Hay on 09-01-2022 Thin prep Papanicolaou smear with manual screening 21 U/L 15-37 [facility] Thin prep Papanicolaou smear with manual screening 3 5-15 [facility] No Panel InformationOrdered By: Dr. Hay on 08-31-2022 Activated Clotting Time 275 sec 74-137 [facility] Basophil percentageOrdered B y: Dr. Hay on 08-19-2022 Chloride [Moles/Vol] 108 mmol/L 98-107 [facility] Glucose [Mass/Vol] 158 mg/dL 74-106 [facility] Comment on above: Fasting Glucose resu lt greater than or equal to 126 mg/dL suggests DIABETES MELLITUS per A.D.A. criteria. Potassium [Moles/Vol] 4.3 mmol/L 3.5-5.1 [facility] Sodium [Moles/Vol] 137 mmol/L 136-145 [facility] WBC (Bld) [#/Vol] 8.2 10*3/uL 4.4-11.0 [facility] Blood erythrocytes count (nu mber/volume)Ordered By: Dr. Hay on 08-19-2022 RBC (Bld) [#/Vol] 5.05 10*6/uL 4.6-6.2 [facility] Blood hemoglobin measurement (mass/volume)Ordered By: Dr. Hay on 08-19-2022 Hemoglobin (Bld) [Mass/Vol] 14.3 g/dL 13.0-16.5 [facility] Blood platelet mean volumeOr dered By: Dr. Hay on 08-19-2022 Platelet mean volume (Bld) [Entitic vol] 12.5 fL 6.2-12.0 [facility] Determination of erythrocyte mean corpuscular volume (MCV)Ordered By: Dr. Hay on 08-19-2022 MCV (RBC) [Entitic vol] 88.3 fL 80-94 [facility] Hematocrit Auto (Bld) [Volum e fraction]Ordered By: Dr. Hay on 04-19-2023 Hematocrit (Bld) [Volume fraction] 44.6 % 40-54 [facility] INR in Blood by Coagulation assayOrdered By: Dr. Hay on 08-19-2022 INR Coag (Bld) [Relative time] 1.1 {INR} [facility] Laboratory - Chemistry and C hemistry - challengeOrdered By: Dr. Hay on 08-19-2022 CO2 [Moles/Vol] 25.0 mmol/L 21.0-32.0 [facility] Urea nitrogen/Creatinine [Mass ratio] 12.0 mg/mg 10-20 [facility] Laboratory - CoagulationOrde red By: Dr. Hay on 08-19-2022 aPTT Coag (Bld) [Time] 30.9 s 24.1-36.2 [facility] PT Coag (PPP) [Time] 13.4 s 11.7-14.9 [facility] Laboratory - Hematology and Cell countsOrdered By: Dr. Hay on 08-19-2022 Erythrocyte distribution width (RBC) [Entitic vol] 44.8 fL 35.1-43.9 [facility] Erythrocyte distribution width (RBC) [Ratio] 13.9 % 11.6-14.6 [facility] MCH (RBC) [Entitic mass] 28.3 pg 27.0-32.0 [facility] MCHC Auto (RBC) [Mass/Vol]Or dered By: Dr. Hay on 08-19-2022 MCHC (RBC) [Mass/Vol] 32.1 g/dL 32-36 [facility] No Panel InformationOrdered By: Dr. Hay on 08-19-2022 Estimated GFR (MDRD) Amer 72 mL/min >60 [facility] Comment on above: GFR Calc Estimated GFR (MDRD) Non-Af Amer 60 mL/min >60 [facility] Comment on above: Non- GFR Calc Platelets bldOrdered By: Dr. Hay on 08-19-2022 Platelets (Bld) [#/Vol] 151 10*3/uL 150-450 [facility] Serum or plasma calcium francine urement (mass/volume)Ordered By: Dr. Hay on 08-19-2022 Calcium [Mass/Vol] 9.0 mg/dL 8.5-10.1 [facility] Serum or plasma creatinine m easurement (mass/volume)Ordered By: Dr. Hay on 08-19-2022 Creatinine [Mass/Vol] 1.25 mg/dL 0.70-1.30 [facility] Comment on above: The validity of the calculated GFR & GFRAA in patients over 70 years has not been determined. Clinical correlation is essential. Serum or plasma urea nitroge n measurement (mass/volume)Ordered By: Dr. Hay on 08-19-2022 Urea nitrogen [Mass/Vol] 15 mg/dL 7-18 [facility] Thin prep Papanicolaou smear with manual screeningOrdered By: Dr. Hay on 08-19-2022 Thin prep Papanicolaou smear with manual screening 4 5-15 [facility] Basophil percentageOrdered B y: Dr. Rodriguez on 06-11-2022 Chloride [Moles/Vol] 102 mmol/L 98-107 [facility] Glucose [Mass/Vol] 274 mg/dL 74-106 [facility] Comment on above: Glucose result great er than or equal to 200 mg/dLsuggests DIABETES MELLITUS per A.D.A. criteria. Potassium [Moles/Vol] 4.3 mmol/L 3.5-5.1 [facility] Sodium [Moles/Vol] 136 mmol/L 136-145 [facility] Laboratory - Chemistry and C hemistry - challengeOrdered By: Dr. Rodriguez on 06-11-2022 CO2 [Moles/Vol] 24.0 mmol/L 21.0-32.0 [facility] Magnesium [Mass/Vol] 2.2 mg/dL 1.6-2.6 [facility] Urea nitrogen/Creatinine [Mass ratio] 15.7 mg/mg 10-20 [facility] No Panel InformationOrdered By: Dr. Rodriguez on 06-11-2022 Estimated GFR (MDRD) Amer 67 mL/min >60 [facility] Comment on above: GFR Calc Estimated GFR (MDRD) Non-Af Amer 55 mL/min >60 [facility] Comment on above: Non- GFR Calc Serum or plasma calcium francine urement (mass/volume)Ordered By: Dr. Rodriguez on 06-11-2022 Calcium [Mass/Vol] 8.7 mg/dL 8.5-10.1 [facility] Serum or plasma creatinine m easurement (mass/volume)Ordered By: Dr. Rodriguez on 06-11-2022 Creatinine [Mass/Vol] 1.34 mg/dL 0.70-1.30 [facility] Comment on above: The validity of the calculated GFR & GFRAA in patients over 70 years has not been determined. Clinical correlation is essential. Serum or plasma urea nitroge n measurement (mass/volume)Ordered By: Dr. Rodriguez on 06-11-2022 Urea nitrogen [Mass/Vol] 21 mg/dL 7-18 [facility] Thin prep Papanicolaou smear with manual screeningOrdered By: Dr. Rodriguez on 06-11-2022 Thin prep Papanicolaou smear with manual screening 10 5-15 [facility] Absolute lymphocyte countOrd ered By: Luz Elena Mckeon on 04-14-2022 Lymphocytes Auto (Unsp spec) [#/Vol] 1.60 10*3/uL 0.83-4.51 [facility] Basophil percentageOrdered B y: Luz Elena Mckeon on 04-14-2022 Basophils/100 WBC (Bld) 0.3 % 0-1 [facility] Chloride [Moles/Vol] 106 mmol/L 98-107 [facility] Eosinophils/100 WBC (Bld) 1.5 % 0-5 [facility] Glucose [Mass/Vol] 211 mg/dL 74-106 [facility] Comment on above: Glucose result great er than or equal to 200 mg/dLsuggests DIABETES MELLITUS per A.D.A. criteria. Neutrophils (Bld) [#/Vol] 3.8 10*3/uL 2.0-7.7 [facility] Neutrophils/100 WBC (Bld) 61.3 % 47-70 [facility] Potassium [Moles/Vol] 4.4 mmol/L 3.5-5.1 [facility] Sodium [Moles/Vol] 136 mmol/L 136-145 [facility] WBC (Bld) [#/Vol] 6.2 10*3/uL 4.4-11.0 [facility] Blood erythrocytes count (nu mber/volume)Ordered By: Luz Elena Mckeon on 04-14-2022 RBC (Bld) [#/Vol] 4.87 10*6/uL 4.6-6.2 [facility] Blood hemoglobin measurement (mass/volume)Ordered By: Luz Elena Mckeon on 04-14-2022 Hemoglobin (Bld) [Mass/Vol] 14.1 g/dL 13.0-16.5 [facility] Blood lymphocytes/100 leukoc ytesOrdered By: Luz Elena Mckeon on 04-14-2022 Lymphocytes/100 WBC (Bld) 25.8 % 19-41 [facility] Blood monocytes/100 leukocyt esOrdered By: Luz Elena Mckeon on 04-14-2022 Monocytes/100 WBC (Bld) 10.8 % 0-10 [facility] Blood platelet mean volumeOr dered By: Luz Elena Mckeon on 04-14-2022 Platelet mean volume (Bld) [Entitic vol] 12.8 fL 6.2-12.0 [facility] Determination of erythrocyte mean corpuscular volume (MCV)Ordered By: Luz Elena Mckeon on 04-14-2022 MCV (RBC) [Entitic vol] 88.1 fL 80-94 [facility] Hematocrit Auto (Bld) [Volum e fraction]Ordered By: Luz Elena Mckeon on 04-14-2022 Hematocrit (Bld) [Volume fraction] 42.9 % 40-54 [facility] Laboratory - Chemistry and C hemistry - challengeOrdered By: Luz Elena Mckeon on 04-14-2022 CO2 [Moles/Vol] 25.0 mmol/L 21.0-32.0 [facility] Natriuretic peptide B (Bld) [Mass/Vol] 54.2 pg/mL 0-100 [facility] Urea nitrogen/Creatinine [Mass ratio] 13.3 mg/mg 10-20 [facility] Laboratory - Hematology and Cell countsOrdered By: Luz Elena Mckeon on 04-14-2022 Erythrocyte distribution width (RBC) [Entitic vol] 44.7 fL 35.1-43.9 [facility] Erythrocyte distribution width (RBC) [Ratio] 13.9 % 11.6-14.6 [facility] Immature granulocytes/100 WBC (Bld) 0.300 % 0.0-0.9 [facility] Comment on above: IG% - Immature Granu locytes (promyelocytes, myelocytes and metamyelocytes) > 1% indicates that a LEFT SHIFT is Present. MCH (RBC) [Entitic mass] 29.0 pg 27.0-32.0 [facility] Nucleated RBC/100 WBC (Bld) [Ratio] 0 % 0-5 [facility] MCHC Auto (RBC) [Mass/Vol]Or dered By: Luz Elena Mckeon on 04-14-2022 MCHC (RBC) [Mass/Vol] 32.9 g/dL 32-36 [facility] No Panel InformationOrdered By: Luz Elena Mckeon on 04-14-2022 Estimated GFR (MDRD) Amer 81 mL/min >60 [facility] Comment on above: GFR Calc Estimated GFR (MDRD) Non-Af Amer 67 mL/min >60 [facility] Comment on above: Non- GFR Calc Platelets bldOrdered By: Loco Mckeon on 04-14-2022 Platelets (Bld) [#/Vol] 150 10*3/uL 150-450 [facility] Serum or plasma calcium francine urement (mass/volume)Ordered By: Luz Elena Mckeon on 04-14-2022 Calcium [Mass/Vol] 8.4 mg/dL 8.5-10.1 [facility] Serum or plasma creatinine m easurement (mass/volume)Ordered By: Luz Elena Mckeon on 04-14-2022 Creatinine [Mass/Vol] 1.13 mg/dL 0.70-1.30 [facility] Comment on above: The validity of the calculated GFR & GFRAA in patients over 70 years has not been determined. Clinical correlation is essential. Serum or plasma urea nitroge n measurement (mass/volume)Ordered By: Luz Elena Mckeon on 04-14-2022 Urea nitrogen [Mass/Vol] 15 mg/dL 7-18 [facility] Thin prep Papanicolaou smear with manual screeningOrdered By: Luz Elena Mckeon on 04-14-2022 Thin prep Papanicolaou smear with manual screening 5 5-15 [facility] Laboratory - Microbiology an d Antimicrobial susceptibilityon 03-27-2022 SARS-CoV-2 (COVID-19) RNA REAGAN+probe Ql (Unsp spec) Detected [facility] No Panel Informationon 03-27 Influenza Types A,B Rapid (Clinic) Not detected [facility] Absolute lymphocyte counton 11-21-2021 Lymphocytes Auto (Unsp spec) [#/Vol] 1.23 10*3/uL 0.83-4.51 [facility] Work Phone: Basophil percentageon 2021 Basophils/100 WBC (Bld) 0.3 % 0-1 [facility] Work Phone: Chloride [Moles/Vol] 106 mmol/L 98-107 [facility] Work Phone: Eosinophils/100 WBC (Bld) 1.2 % 0-5 [facility] Work Phone: Glucose [Mass/Vol] 166 mg/dL 74-106 [facility] Work Phone: Comment on above: Fasting Glucose resu lt greater than or equal to 126 mg/dL suggests DIABETES MELLITUS per A.D.A. criteria. Neutrophils (Bld) [#/Vol] 4.7 10*3/uL 2.0-7.7 [facility] Work Phone: Neutrophils/100 WBC (Bld) 69.8 % 47-70 [facility] Work Phone: Potassium [Moles/Vol] 4.2 mmol/L 3.5-5.1 [facility] Work Phone: Sodium [Moles/Vol] 140 mmol/L 136-145 [facility] Work Phone: WBC (Bld) [#/Vol] 6.7 10*3/uL 4.4-11.0 [facility] Work Phone: Blood erythrocytes count (nu mber/volume)on 11-21-2021 RBC (Bld) [#/Vol] 5.06 10*6/uL 4.6-6.2 [facility] Work Phone: Blood hemoglobin measurement (mass/volume)on 11-21-2021 Hemoglobin (Bld) [Mass/Vol] 14.3 g/dL 13.0-16.5 [facility] Work Phone: Blood lymphocytes/100 leukoc yteson 11-21-2021 Lymphocytes/100 WBC (Bld) 18.4 % 19-41 [facility] Work Phone: Blood monocytes/100 leukocyt eson 11-21-2021 Monocytes/100 WBC (Bld) 9.9 % 0-10 [facility] Work Phone: Blood platelet mean volumeon 11-21-2021 Platelet mean volume (Bld) [Entitic vol] 12.4 fL 6.2-12.0 [facility] Work Phone: Determination of erythrocyte mean corpuscular volume (MCV)on 11-21-2021 MCV (RBC) [Entitic vol] 89.1 fL 80-94 [facility] Work Phone: Hematocrit Auto (Bld) [Volum e fraction]on 11-21-2021 Hematocrit (Bld) [Volume fraction] 45.1 % 40-54 [facility] Work Phone: Laboratory - Chemistry and C hemistry - challengeon 11-21-2021 CO2 [Moles/Vol] 27.0 mmol/L 21.0-32.0 [facility] Work Phone: Natriuretic peptide B (Bld) [Mass/Vol] 60.9 pg/mL 0-100 [facility] Work Phone: Urea nitrogen/Creatinine [Mass ratio] 12.9 mg/mg 10-20 [facility] Work Phone: Laboratory - Hematology and Cell countson 11-21-2021 Erythrocyte distribution width (RBC) [Entitic vol] 45.1 fL 35.1-43.9 [facility] Work Phone: Erythrocyte distribution width (RBC) [Ratio] 14.0 % 11.6-14.6 [facility] Work Phone: Immature granulocytes/100 WBC (Bld) 0.400 % 0.0-0.9 [facility] Work Phone: Comment on above: IG% - Immature Granu locytes (promyelocytes, myelocytes and metamyelocytes) > 1% indicates that a LEFT SHIFT is Present. MCH (RBC) [Entitic mass] 28.3 pg 27.0-32.0 [facility] Work Phone: Nucleated RBC/100 WBC (Bld) [Ratio] 0 % 0-5 [facility] Work Phone: MCHC Auto (RBC) [Mass/Vol]on 11-21-2021 MCHC (RBC) [Mass/Vol] 31.7 g/dL 32-36 [facility] Work Phone: No Panel Informationon 11-21 Estimated GFR (MDRD) Amer 63 mL/min >60 [facility] Work Phone: Comment on above: GFR Calc Estimated GFR (MDRD) Non-Af Amer 52 mL/min >60 [facility] Work Phone: Comment on above: Non- GFR Calc Platelets bldon 11-21-2021 Platelets (Bld) [#/Vol] 135 10*3/uL 150-450 [facility] Work Phone: Serum or plasma calcium francine urement (mass/volume)on 11-21-2021 Calcium [Mass/Vol] 8.9 mg/dL 8.5-10.1 [facility] Work Phone: Serum or plasma creatinine m easurement (mass/volume)on 11-21-2021 Creatinine [Mass/Vol] 1.40 mg/dL 0.70-1.30 [facility] Work Phone: Comment on above: The validity of the calculated GFR & GFRAA in patients over 70 years has not been determined. Clinical correlation is essential. Serum or plasma urea nitroge n measurement (mass/volume)on 11-21-2021 Urea nitrogen [Mass/Vol] 18 mg/dL 7-18 [facility] Work Phone: Thin prep Papanicolaou smear with manual screeningon 11-21-2021 Thin prep Papanicolaou smear with manual screening 7 5-15 [facility] Work Phone: [phone] Absolute lymphocyte counton 11-16-2021 Lymphocytes Auto (Unsp spec) [#/Vol] 2.06 10*3/uL 0.83-4.51 [facility] Work Phone: Basophil percentageon 2021 Basophils/100 WBC (Bld) 0.3 % 0-1 [facility] Work Phone: Chloride [Moles/Vol] 104 mmol/L 98-107 [facility] Work Phone: Eosinophils/100 WBC (Bld) 1.4 % 0-5 [facility] Work Phone: Glucose [Mass/Vol] 170 mg/dL 74-106 [facility] Work Phone: Comment on above: Fasting Glucose resu lt greater than or equal to 126 mg/dL suggests DIABETES MELLITUS per A.D.A. criteria. Neutrophils (Bld) [#/Vol] 5.0 10*3/uL 2.0-7.7 [facility] Work Phone: Neutrophils/100 WBC (Bld) 62.3 % 47-70 [facility] Work Phone: Potassium [Moles/Vol] 4.4 mmol/L 3.5-5.1 [facility] Work Phone: Comment on above: Slight Hemolysis, Re sult may be falsely increased. Sodium [Moles/Vol] 137 mmol/L 136-145 [facility] Work Phone: WBC (Bld) [#/Vol] 7.9 10*3/uL 4.4-11.0 [facility] Work Phone: Blood erythrocytes count (nu mber/volume)on 11-16-2021 RBC (Bld) [#/Vol] 5.42 10*6/uL 4.6-6.2 [facility] Work Phone: Blood hemoglobin measurement (mass/volume)on 11-16-2021 Hemoglobin (Bld) [Mass/Vol] 15.6 g/dL 13.0-16.5 [facility] Work Phone: Blood lymphocytes/100 leukoc yteson 11-16-2021 Lymphocytes/100 WBC (Bld) 26.0 % 19-41 [facility] Work Phone: [phone] Blood monocytes/100 leukocyt eson 11-16-2021 Monocytes/100 WBC (Bld) 9.6 % 0-10 [facility] Work Phone: [phone] Blood platelet mean volumeon 11-16-2021 Platelet mean volume (Bld) [Entitic vol] 12.9 fL 6.2-12.0 [facility] Work Phone: Determination of erythrocyte mean corpuscular volume (MCV)on 11-16-2021 MCV (RBC) [Entitic vol] 89.3 fL 80-94 [facility] Work Phone: [phone] Hematocrit Auto (Bld) [Volum e fraction]on 11-16-2021 Hematocrit (Bld) [Volume fraction] 48.4 % 40-54 [facility] Work Phone: Laboratory - Chemistry and C hemistry - challengeon 11-16-2021 CO2 [Moles/Vol] 27.0 mmol/L 21.0-32.0 [facility] Work Phone: Urea nitrogen/Creatinine [Mass ratio] 11.6 mg/mg 10-20 [facility] Work Phone: [phone] Laboratory - Hematology and Cell countson 11-16-2021 Erythrocyte distribution width (RBC) [Entitic vol] 44.5 fL 35.1-43.9 [facility] Work Phone: [phone] Erythrocyte distribution width (RBC) [Ratio] 13.8 % 11.6-14.6 [facility] Work Phone: [phone] Immature granulocytes/100 WBC (Bld) 0.400 % 0.0-0.9 [facility] Work Phone: [phone] Comment on above: IG% - Immature Granu locytes (promyelocytes, myelocytes and metamyelocytes) > 1% indicates that a LEFT SHIFT is Present. MCH (RBC) [Entitic mass] 28.8 pg 27.0-32.0 [facility] Work Phone: Nucleated RBC/100 WBC (Bld) [Ratio] 0 % 0-5 [facility] Work Phone: MCHC Auto (RBC) [Mass/Vol]on 11-16-2021 MCHC (RBC) [Mass/Vol] 32.2 g/dL 32-36 [facility] Work Phone: No Panel Informationon 11-16 Troponin I High Sensitivity 7 pg/mL 3.0-78.0 [facility] Work Phone: Comment on above: Please Note: [place] t Units and Gender Specific Reference Ranges. For more information see Policy Stat Procedure [place] High Sensitivity Troponin (TNIH) and attachments. Estimated Creatinine Clearance Calc 45.54 ml/min [facility] Work Phone: Estimated GFR (MDRD) Amer 64 mL/min >60 [facility] Work Phone: Comment on above: GFR Calc Estimated GFR (MDRD) Non-Af Amer 53 mL/min >60 [facility] Work Phone: Comment on above: Non- GFR Calc Platelets bldon 11-16-2021 Platelets (Bld) [#/Vol] 142 10*3/uL 150-450 [facility] Work Phone: Serum or plasma calcium francine urement (mass/volume)on 11-16-2021 Calcium [Mass/Vol] 9.2 mg/dL 8.5-10.1 [facility] Work Phone: Serum or plasma creatinine m easurement (mass/volume)on 11-16-2021 Creatinine [Mass/Vol] 1.38 mg/dL 0.70-1.30 [facility] Work Phone: Comment on above: The validity of the calculated GFR & GFRAA in patients over 70 years has not been determined. Clinical correlation is essential. Serum or plasma urea nitroge n measurement (mass/volume)on 11-16-2021 Urea nitrogen [Mass/Vol] 16 mg/dL 7-18 [facility] Work Phone: Thin prep Papanicolaou smear with manual screeningon 11-16-2021 Thin prep Papanicolaou smear with manual screening 6 5-15 [facility] Work Phone: Basophil percentageon 2021 Chloride [Moles/Vol] 105 mmol/L 98-107 [facility] [facility] Work Phone: Glucose [Mass/Vol] 246 mg/dL 74-106 [facility] Work Phone: Comment on above: Glucose result great er than or equal to 200 mg/dLsuggests DIABETES MELLITUS per A.D.A. criteria. Potassium [Moles/Vol] 4.2 mmol/L 3.5-5.1 [facility] Work Phone: Sodium [Moles/Vol] 137 mmol/L 136-145 [facility] Work Phone: Laboratory - Chemistry and C hemistry - challengeon 10-28-2021 CO2 [Moles/Vol] 24.0 mmol/L 21.0-32.0 [facility] Work Phone: Urea nitrogen/Creatinine [Mass ratio] 15.6 mg/mg 10-20 [facility] Work Phone: No Panel Informationon 10-28 Estimated GFR (MDRD) Amer 74 mL/min >60 [facility] Work Phone: Comment on above: GFR Calc Estimated GFR (MDRD) Non-Af Amer 61 mL/min >60 [facility] Work Phone: Comment on above: Non- GFR Calc Serum or plasma calcium francine urement (mass/volume)on 10-28-2021 Calcium [Mass/Vol] 8.9 mg/dL 8.5-10.1 [facility] Work Phone: Serum or plasma creatinine m easurement (mass/volume)on 10-28-2021 Creatinine [Mass/Vol] 1.22 mg/dL 0.70-1.30 [facility] Work Phone: Comment on above: The validity of the calculated GFR & GFRAA in patients over 70 years has not been determined. Clinical correlation is essential. Serum or plasma urea nitroge n measurement (mass/volume)on 10-28-2021 Urea nitrogen [Mass/Vol] 19 mg/dL 7-18 [facility] Work Phone: Thin prep Papanicolaou smear with manual screeningon 10-28-2021 Thin prep Papanicolaou smear with manual screening 8 5-15 [facility] Work Phone: Whole blood hemoglobin A1c/t otal hemoglobin ratio (mass fraction)on 10-28-2021 HbA1c (Bld) [Mass fraction] 7.7 % 3.8-5.6 [facility] Work Phone: Comment on above: Normal < 5.7 % Predi abetic 5.7 - 6.4 % Diabetic >or= 6.5 % Please note range changes. Absolute lymphocyte counton 09-16-2021 Lymphocytes Auto (Unsp spec) [#/Vol] 1.24 10*3/uL 0.83-4.51 [facility] Work Phone: Basophil percentageon 2021 Basophils/100 WBC (Bld) 0.5 % 0-1 [facility] Work Phone: Chloride [Moles/Vol] 107 mmol/L 98-107 [facility] Work Phone: Eosinophils/100 WBC (Bld) 1.7 % 0-5 [facility] Work Phone: Glucose [Mass/Vol] 134 mg/dL 74-106 [facility] Work Phone: Comment on above: Fasting Glucose resu lt greater than or equal to 126 mg/dL suggests DIABETES MELLITUS per A.D.A. criteria. Neutrophils (Bld) [#/Vol] 4.4 10*3/uL 2.0-7.7 [facility] Work Phone: Neutrophils/100 WBC (Bld) 68.0 % 47-70 [facility] Work Phone: Potassium [Moles/Vol] 4.3 mmol/L 3.5-5.1 [facility] [place] [place] Work Phone: [phone] Sodium [Moles/Vol] 139 mmol/L 136-145 [facility] [place] [place] Work Phone: [phone] WBC (Bld) [#/Vol] 6.4 10*3/uL 4.4-11.0 [facility] Work Phone: [phone] Blood erythrocytes count (nu mber/volume)on 09-16-2021 RBC (Bld) [#/Vol] 4.84 10*6/uL 4.6-6.2 [facility] Work Phone: Blood hemoglobin measurement (mass/volume)on 09-16-2021 Hemoglobin (Bld) [Mass/Vol] 14.1 g/dL 13.0-16.5 [facility] Work Phone: [phone] Blood lymphocytes/100 leukoc yteson 09-16-2021 Lymphocytes/100 WBC (Bld) 19.3 % 19-41 [facility] Work Phone: [phone] Blood monocytes/100 leukocyt eson 09-16-2021 Monocytes/100 WBC (Bld) 10.0 % 0-10 [facility] Work Phone: Blood platelet mean volumeon 09-16-2021 Platelet mean volume (Bld) [Entitic vol] 12.7 fL 6.2-12.0 [facility] Work Phone: [phone] Determination of erythrocyte mean corpuscular volume (MCV)on 09-16-2021 MCV (RBC) [Entitic vol] 90.1 fL 80-94 [facility] Work Phone: Hematocrit Auto (Bld) [Volum e fraction]on 09-16-2021 Hematocrit (Bld) [Volume fraction] 43.6 % 40-54 [facility] Work Phone: Laboratory - Chemistry and C hemistry - challengeon 09-16-2021 CO2 [Moles/Vol] 27.0 mmol/L 21.0-32.0 [facility] Work Phone: [phone] Natriuretic peptide B (Bld) [Mass/Vol] 80.9 pg/mL 0-100 [facility] Work Phone: [phone] Urea nitrogen/Creatinine [Mass ratio] 13.7 mg/mg 10-20 [facility] Work Phone: [phone] Laboratory - Hematology and Cell countson 09-16-2021 Erythrocyte distribution width (RBC) [Entitic vol] 46.2 fL 35.1-43.9 [facility] Work Phone: [phone] Erythrocyte distribution width (RBC) [Ratio] 13.9 % 11.6-14.6 [facility] Work Phone: [phone] Immature granulocytes/100 WBC (Bld) 0.500 % 0.0-0.9 [facility] Work Phone: [phone] Comment on above: IG% - Immature Granu locytes (promyelocytes, myelocytes and metamyelocytes) > 1% indicates that a LEFT SHIFT is Present. MCH (RBC) [Entitic mass] 29.1 pg 27.0-32.0 [facility] Work Phone: [phone] Nucleated RBC/100 WBC (Bld) [Ratio] 0 % 0-5 [facility] Work Phone: [phone] MCHC Auto (RBC) [Mass/Vol]on 09-16-2021 MCHC (RBC) [Mass/Vol] 32.3 g/dL 32-36 [facility] Work Phone: [phone] Panel Informationon 09-16 Estimated GFR (MDRD) Amer 73 mL/min >60 [facility] Work Phone: [phone] Comment on above: GFR Calc Estimated GFR (MDRD) Non-Af Amer 60 mL/min >60 [facility] Work Phone: [phone] Comment on above: Non- GFR Calc Platelets bldon 09-16-2021 Platelets (Bld) [#/Vol] 133 10*3/uL 150-450 [facility] Work Phone: [phone] Serum or plasma calcium francine urement (mass/volume)on 09-16-2021 Calcium [Mass/Vol] 9.0 mg/dL 8.5-10.1 [facility] Work Phone: Serum or plasma creatinine m easurement (mass/volume)on 09-16-2021 Creatinine [Mass/Vol] 1.24 mg/dL 0.70-1.30 [facility] Work Phone: Comment on above: The validity of the calculated GFR & GFRAA in patients over 70 years has not been determined. Clinical correlation is essential. Serum or plasma urea nitroge n measurement (mass/volume)on 09-16-2021 Urea nitrogen [Mass/Vol] 17 mg/dL 7-18 [facility] Work Phone: Thin prep Papanicolaou smear with manual screeningon 09-16-2021 Thin prep Papanicolaou smear with manual screening 5 5-15 [facility] Work Phone: Absolute lymphocyte counton 06-10-2021 Lymphocytes Auto (Unsp spec) [#/Vol] 1.00 10*3/uL 0.83-4.51 [facility] Work Phone: Basophil percentageon 2021 Basophils/100 WBC (Bld) 0.3 % 0-1 [facility] Work Phone: Chloride [Moles/Vol] 107 mmol/L 98-107 [facility] Work Phone: [phone] Eosinophils/100 WBC (Bld) 1.7 % 0-5 [facility] Work Phone: [phone] Glucose [Mass/Vol] 150 mg/dL 74-106 [facility] Work Phone: Comment on above: Fasting Glucose resu lt greater than or equal to 126 mg/dL suggests DIABETES MELLITUS per A.D.A. criteria. Neutrophils (Bld) [#/Vol] 4.9 10*3/uL 2.0-7.7 [facility] Work Phone: Neutrophils/100 WBC (Bld) 73.8 % 47-70 [facility] Work Phone: Potassium [Moles/Vol] 5.6 mmol/L 3.5-5.1 [facility] Work Phone: Comment on above: Moderate Hemolysis, Result may be falsely increased. Sodium [Moles/Vol] 139 mmol/L 136-145 [facility] Work Phone: WBC (Bld) [#/Vol] 6.7 10*3/uL 4.4-11.0 [facility] Work Phone: Blood erythrocytes count (nu mber/volume)on 06-10-2021 RBC (Bld) [#/Vol] 5.17 10*6/uL 4.6-6.2 [facility] Work Phone: Blood hemoglobin measurement (mass/volume)on 06-10-2021 Hemoglobin (Bld) [Mass/Vol] 15.5 g/dL 13.0-16.5 [facility] Work Phone: Blood lymphocytes/100 leukoc yteson 06-10-2021 Lymphocytes/100 WBC (Bld) 15.0 % 19-41 [facility] Work Phone: Blood monocytes/100 leukocyt eson 06-10-2021 Monocytes/100 WBC (Bld) 8.7 % 0-10 [facility] Work Phone: Blood platelet mean volumeon 06-10-2021 Platelet mean volume (Bld) [Entitic vol] 12.7 fL 6.2-12.0 [facility] Work Phone: Determination of erythrocyte mean corpuscular volume (MCV)on 06-10-2021 MCV (RBC) [Entitic vol] 89.6 fL 80-94 [facility] Work Phone: Hematocrit Auto (Bld) [Volum e fraction]on 06-10-2021 Hematocrit (Bld) [Volume fraction] 46.3 % 40-54 [facility] Work Phone: Laboratory - Chemistry and C hemistry - challengeon 06-10-2021 CO2 [Moles/Vol] 28.0 mmol/L 21.0-32.0 [facility] Work Phone: [phone] Urea nitrogen/Creatinine [Mass ratio] 12.7 mg/mg 10-20 [facility] Work Phone: [phone] Laboratory - Hematology and Cell countson 06-10-2021 Erythrocyte distribution width (RBC) [Entitic vol] 45.9 fL 35.1-43.9 [facility] Work Phone: [phone] Erythrocyte distribution width (RBC) [Ratio] 14.1 % 11.6-14.6 [facility] Work Phone: [phone] Immature granulocytes/100 WBC (Bld) 0.500 % 0.0-0.9 [facility] Work Phone: [phone] Comment on above: IG% - Immature Granu locytes (promyelocytes, myelocytes and metamyelocytes) > 1% indicates that a LEFT SHIFT is Present. MCH (RBC) [Entitic mass] 30.0 pg 27.0-32.0 [facility] Work Phone: [phone] Nucleated RBC/100 WBC (Bld) [Ratio] 0 % 0-5 [facility] Work Phone: [phone] MCHC Auto (RBC) [Mass/Vol]on 06-10-2021 MCHC (RBC) [Mass/Vol] 33.5 g/dL 32-36 [facility] Work Phone: [phone] Panel Informationon 06-10 Troponin I High Sensitivity 10 pg/mL 3.0-78.0 [facility] Work Phone: [phone] Comment on above: Please Note: New Jana t Units and Gender Specific Reference Ranges. For more information see Policy Stat Procedure [place] High Sensitivity Troponin (TNIH) and attachments. Estimated Creatinine Clearance Calc 47.63 ml/min [facility] Work Phone: [phone] Estimated GFR (MDRD) Amer 67 mL/min >60 [facility] Work Phone: [phone] Comment on above: GFR Calc Estimated GFR (MDRD) Non-Af Amer 55 mL/min >60 [facility] Work Phone: [phone] Comment on above: Non- GFR Calc Platelets bldon 06-10-2021 Platelets (Bld) [#/Vol] 146 10*3/uL 150-450 [facility] Work Phone: Serum or plasma calcium francine urement (mass/volume)on 06-10-2021 Calcium [Mass/Vol] 8.7 mg/dL 8.5-10.1 [facility] Work Phone: Serum or plasma creatinine m easurement (mass/volume)on 06-10-2021 Creatinine [Mass/Vol] 1.34 mg/dL 0.70-1.30 [facility] Work Phone: Comment on above: The validity of the calculated GFR & GFRAA in patients over 70 years has not been determined. Clinical correlation is essential. Serum or plasma urea nitroge n measurement (mass/volume)on 06-10-2021 Urea nitrogen [Mass/Vol] 17 mg/dL 7-18 [facility] Work Phone: Thin prep Papanicolaou smear with manual screeningon 06-10-2021 Thin prep Papanicolaou smear with manual screening 4 5-15 [facility] Work Phone: Absolute lymphocyte counton 05-19-2021 Lymphocytes Auto (Unsp spec) [#/Vol] 1.72 10*3/uL 0.83-4.51 [facility] Work Phone: Basophil percentageon 2021 Basophils/100 WBC (Bld) 0.4 % 0-1 [facility] Work Phone: Bilirubin [Mass/Vol] 1.20 mg/dL 0.20-1.00 [facility] Work Phone: [phone] Comment on above: For patients on eltr ombopag therapy, use of Dimension [place] TBIL is not recommended. Chloride [Moles/Vol] 106 mmol/L 98-107 [facility] Work Phone: Eosinophils/100 WBC (Bld) 1.2 % 0-5 [facility] Work Phone: Glucose [Mass/Vol] 182 mg/dL 74-106 [facility] Work Phone: Comment on above: Fasting Glucose resu lt greater than or equal to 126 mg/dL suggests DIABETES MELLITUS per A.D.A. criteria. Neutrophils (Bld) [#/Vol] 6.6 10*3/uL 2.0-7.7 [facility] Work Phone: Neutrophils/100 WBC (Bld) 70.5 % 47-70 [facility] Work Phone: Potassium [Moles/Vol] 3.8 mmol/L 3.5-5.1 [facility] Work Phone: Protein [Mass/Vol] 7.9 g/dL 6.4-8.2 [facility] Work Phone: Sodium [Moles/Vol] 139 mmol/L 136-145 [facility] Work Phone: WBC (Bld) [#/Vol] 9.4 10*3/uL 4.4-11.0 [facility] Work Phone: Basophil percentage 0 SEEN /hpf [facility] Work Phone: Bilirubin Test strip Ql (U)o n 05-19-2021 Bilirubin Ql (U) Negative Negative [facility] Work Phone: [phone] Blood erythrocytes count (nu mber/volume)on 05-19-2021 RBC (Bld) [#/Vol] 5.30 10*6/uL 4.6-6.2 [facility] Work Phone: Blood hemoglobin measurement (mass/volume)on 05-19-2021 Hemoglobin (Bld) [Mass/Vol] 15.3 g/dL 13.0-16.5 [facility] Work Phone: Blood lymphocytes/100 leukoc yteson 05-19-2021 Lymphocytes/100 WBC (Bld) 18.3 % 19-41 [facility] Work Phone: Blood monocytes/100 leukocyt eson 05-19-2021 Monocytes/100 WBC (Bld) 9.3 % 0-10 [facility] Work Phone: Blood platelet mean volumeon 05-19-2021 Platelet mean volume (Bld) [Entitic vol] 12.5 fL 6.2-12.0 [facility] Work Phone: Determination of erythrocyte mean corpuscular volume (MCV)on 05-19-2021 MCV (RBC) [Entitic vol] 89.8 fL 80-94 [facility] Work Phone: Hematocrit Auto (Bld) [Volum e fraction]on 05-19-2021 Hematocrit (Bld) [Volume fraction] 47.6 % 40-54 [facility] Work Phone: Ketones Test strip Ql (U)on 05-19-2021 Ketones Ql (U) Negative Negative [facility] Work Phone: Laboratory - Chemistry and C hemistry - challengeon 05-19-2021 ALP [Catalytic activity/Vol] 156 U/L 45-117 [facility] Work Phone: ALT [Catalytic activity/Vol] 44 U/L 16-61 [facility] Work Phone: [phone] CO2 [Moles/Vol] 26.0 mmol/L 21.0-32.0 [facility] Work Phone: [phone] Globulin (S) [Mass/Vol] 4.2 g/dL 2.2-4.2 [facility] Work Phone: Lipase [Catalytic activity/Vol] 199 U/L 73-393 [facility] Work Phone: Urea nitrogen/Creatinine [Mass ratio] 13.8 mg/mg 10-20 [facility] Work Phone: Laboratory - Hematology and Cell countson 05-19-2021 Erythrocyte distribution width (RBC) [Entitic vol] 46.7 fL 35.1-43.9 [facility] Work Phone: [phone] Erythrocyte distribution width (RBC) [Ratio] 14.3 % 11.6-14.6 [facility] Work Phone: Immature granulocytes/100 WBC (Bld) 0.300 % 0.0-0.9 [facility] Work Phone: Comment on above: IG% - Immature Granu locytes (promyelocytes, myelocytes and metamyelocytes) > 1% indicates that a LEFT SHIFT is Present. MCH (RBC) [Entitic mass] 28.9 pg 27.0-32.0 [facility] Work Phone: Nucleated RBC/100 WBC (Bld) [Ratio] 0 % 0-5 [facility] Work Phone: MCHC Auto (RBC) [Mass/Vol]on 05-19-2021 MCHC (RBC) [Mass/Vol] 32.1 g/dL 32-36 [facility] Work Phone: Mucus LM Ql (Urine sed)on Mucus Ql (Urine sed) 0 SEEN /hpf [facility] Work Phone: Nitrite Test strip Ql (U)on 05-19-2021 Nitrite Ql (U) Negative Negative [facility] Work Phone: No Panel Informationon 05-19 Estimated Creatinine Clearance Calc 46.25 ml/min [facility] Work Phone: Estimated GFR (MDRD) Amer 65 mL/min >60 [facility] Work Phone: Comment on above: GFR Calc Estimated GFR (MDRD) Non-Af Amer 53 mL/min >60 [facility] Work Phone: Comment on above: Non- GFR Calc Platelets bldon 05-19-2021 Platelets (Bld) [#/Vol] 158 10*3/uL 150-450 [facility] Work Phone: Protein Test strip Ql (U)on 05-19-2021 Protein Ql (U) Negative Negative [facility] Work Phone: [phone] Serum or plasma albumin francine urement (mass/volume)on 05-19-2021 Albumin [Mass/Vol] 3.7 g/dL 3.2-5.0 [facility] Work Phone: Serum or plasma albumin/glob ulin mass ratioon 05-19-2021 Albumin/Globulin [Mass ratio] 0.9 {ratio} 0.9-2.4 [facility] Work Phone: Serum or plasma calcium francine urement (mass/volume)on 05-19-2021 Calcium [Mass/Vol] 9.2 mg/dL 8.5-10.1 [facility] Work Phone: [phone] Serum or plasma creatinine m easurement (mass/volume)on 05-19-2021 Creatinine [Mass/Vol] 1.38 mg/dL 0.70-1.30 [facility] Work Phone: Comment on above: The validity of the calculated GFR & GFRAA in patients over 70 years has not been determined. Clinical correlation is essential. Serum or plasma urea nitroge n measurement (mass/volume)on 05-19-2021 Urea nitrogen [Mass/Vol] 19 mg/dL 7-18 [facility] Work Phone: Squamous epithelial cells de tection in urine sediment by light microscopyon 05-19-2021 Epithelial cells.squamous LM Ql (Urine sed) 0 SEEN /hpf [facility] Work Phone: Thin prep Papanicolaou smear with manual screeningon 05-19-2021 Thin prep Papanicolaou smear with manual screening 25 U/L 15-37 [facility] Work Phone: [phone] Thin prep Papanicolaou smear with manual screening 7 5-15 [facility] Work Phone: [phone] Urine blood detectionon 05-03 RBC Ql (U) Negative Negative [facility] Work Phone: [phone] RBC Ql (U) 0 SEEN /hpf [facility] Work Phone: [phone] Urine clarityon 05-19-2021 Clarity (U) Clear Clear [facility] Work Phone: [phone] Urine color determinationon 05-19-2021 Color (U) Straw Yellow [facility] Work Phone: [phone] Urine glucose detectionon Glucose Ql (U) Normal mg/dl Normal [facility] Work Phone: Urine leukocyte esterase det ection by dipstickon 05-19-2021 Leukocyte esterase Test strip Ql (U) Negative Negative [facility] Work Phone: Urine pHon 05-19-2021 pH (U) 5.0 [pH] [facility] Work Phone: Urine sediment bacteria coun t by microscopy (number/high power field)on 05-19-2021 Bacteria LM.HPF (Urine sed) [#/Area] 0 /[HPF] None Seen [facility] Work Phone: Urine specific gravity measu rementon 05-19-2021 Specific gravity (U) [Rel density] 1.010 [facility] Work Phone: Urobilinogen Auto test strip Ql (U)on 05-19-2021 Urobilinogen Ql (U) Normal mg/dl Normal [facility] Work Phone: CT ANGIOGRAM AORTA CHEST [...] descending thoracic aorta is tortuous within its ohe-il-[id number] course but is not aneurysmal. The abdominal [...] L4-L5 and L5-S1. IMAGING FACILITY: [facility]. SB/tde Workstation ID: [id number] Dictated by: YAS IYER on WedFeb 26, 2021 1:26:53 PM EDT Transcribed by: KEIKO CORLEY on WedFeb 26, 2021 1:43:47 PM EDT Finalized by: YAS IYER on WedFeb 27, 2021 7:40:59 AM EDT Normal [facility] Comment on above: Order Comment: Injur y/Trauma or Illness?:Illness/Other How long have you had these symptoms (acute/chronic)?:Acute Reason for exam?:Coronary artery disease involving [place] coronary artery of [place] heart with angina pectoris, recent heart cath Type of Exam?:Subsequent/Follow-up Additional signs and symptoms?: LEFT HEART CATH POSSIBLE PTC A/STENTon 01-10-2021 LEFT HEART CATH POSSIBLE PTCA/STENT Patient Name: GERRY RICO Date of : 1945 Procedure Date: 01/10/2021 Cath #: [id number] Physician(s): Eladio Ingram MD Ref. Physician: PROCEDURE(S) [...] right femoral artery - 6F. 10 cm [place] Catheters were advanced using standard guide wire [...] Equipment: Sheath(s) [employer] 4F MICROPUNCTURE KIT [employer] 6F 10CM [place] SHEATH Wire(s) [employer] J WIRE FIXED MERIT .035 X 150CM GUIDEWIRE Catheter(s) [email or web address] JR4 DIAG CATH 6F [email or web address] JR4 DIAG CATH 6F [email or web address] PIGTAIL STRAIGHT DIAG CATH 6F See Nursing Notes for further details Signed By Eladio Ingram MD On 01/10/2021 11:05:05 Eladio Ingram MD _ _ [facility] ECHOCARDIOGRAM 2D COMPLETEOr dered By: lEadio Ingram on 10-15-2020 Aortic valve area 2.[address] 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 Left ventricular [...] Velocity 1.09 m/s (more content not included)... 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 Left ventricular [...] mmHg MV VTI 46 cm MV [employer] [place] 333 cm/s2 MV PHT 38 ms MV Area (PHT) 5.8 cm2 4.0-5.0 MV Area (Cont Eq VTI) 2.5 cm2 MV Area Index (Cont Eq VTI) 1.06 cm2/m2 MV Di (more content not included)... 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 Left ventricular [...] mmHg MV VTI 46 cm MV [place] 333 cm/s2 MV PHT 38 ms MV Area (PHT) 5.8 cm2 4.0-5.0 MV Area (Cont Eq VTI) 2.5 cm2 MV Area Index (Cont Eq VTI) 1.06 cm2/m2 MV Diastolic Function MV E Peak Velocity 1 m/s MV A Peak Velocity 1 m/s MV E/A 1.2 MV (more content not included)... Normal [facility] Ambulatory ECG 12-LEADOrdered By: Sagar Acuña on 10-09-2020 Atrial Rate [facility] P [place] [facility] P-R Interval [facility] Q-T Interval [facility] Q-T Interval (corrected) [facility] QRS Duration [facility] QTC Calculation (Bezet) [facility] R [place] [facility] T [place]well [facility] Ventricular Rate [facility] th [facility] Auto Diffon 09-15-2018 Basophils #/vol (Bld) 0.0 E3/mcL Normal 0.0-0.2 [facility] Comment on above: Order Comment: Order Added by Discern Expert. Performed By: #### [id number] #### [employer] [address] [place] [address] Basophils/100 WBC (Bld) 0.6 % Normal 0.0-2.0 [facility] Comment on above: Order Comment: Order Added by Discern Expert. Performed By: #### [id number] #### [employer] [address] [place] [address] Eos Absolute 0.1 E3/mcL Normal 0.0-0.7 [facility] Comment on above: Order Comment: Order Added by Discern Expert. Performed By: #### 2 [id number] #### [employer] [address] [place] [address] Eosinophils/100 WBC (Bld) 2.2 % Normal 0.0-11.0 [facility] Comment on above: Order Comment: Order Added by Discern Expert. Performed By: #### 2 [id number] #### [employer] [address] [place] [address] Lymphocytes #/vol (Bld) 1.9 E3/mcL Normal 1.2-3.4 [facility] Comment on above: Order Comment: Order Added by Discern Expert. Performed By: #### 2 [id number] #### [employer] [address] [place] [address] Lymphocytes/100 WBC (Bld) 31.0 % Normal 20.0-55.0 [facility] Comment on above: Order Comment: Order Added by Discern Expert. Performed By: #### 2 [id number] #### [employer] [address] [place] [address] [place] Absolute 0.8 E3/mcL High 0.0-0.7 [facility] Comment on above: Order Comment: Order Added by Discern Expert. Performed By: #### 2 [id number] #### [facility] [employer] [address] [place] [address] Monocytes/100 WBC (Bld) 13.2 % High 0.0-10.0 [facility] Comment on above: Order Comment: Order Added by Discern Expert. Performed By: #### 2 [id number] #### [facility] [employer] [address] [place] [address] Neutro Absolute 3.3 E3/mcL Normal 1.4-6.5 [facility] Comment on above: Order Comment: Order Added by Discern Expert. Performed By: #### 2 [id number] #### [employer] [address] [place] [address] Neutro Auto 53.0 % Normal 37.0-75.0 [facility] Comment on above: Order Comment: Order Added by Discern Expert. Performed By: #### 2 [id number] #### [employer] [address] [place] [address] BMPon 09-15-2018 Anion gap molar conc 10 mmol/L Normal 10-20 [facility] Comment on above: Performed By: #### 2 [id number] #### [employer] [facility] [place] [address] Calcium mass conc 8.4 mg/dL Low 8.6-10.3 [facility] Comment on above: Performed By: #### 2 [id number] #### [employer] [address] [place] [address] Chloride molar conc 105 mmol/L Normal 98-107 [facility] Comment on above: Performed By: #### 2 [id number] #### [employer] [facility] [place] [address] CO2 molar conc 26.0 mmol/L Normal 21.0-32.0 [facility] Comment on above: Performed By: #### 2 [id number] #### [employer] [facility] [address] [place] [address] Creatinine mass conc 1.1 mg/dL Normal 0.5-1.3 [facility] Comment on above: Performed By: #### 2 [id number] #### [employer] [facility] [address] [place] [address] Glucose mass conc 136 mg/dL High 70-99 [facility] Comment on above: Performed By: #### 2 [id number] #### [employer] [facility] [address] [place] [address] Potassium molar conc 4.1 mmol/L Normal 3.5-5.3 [facility] Comment on above: Performed By: #### 2 773753 #### [employer] [facility] [address] [place] [address] Sodium molar conc 137 mmol/L Normal 136-145 [facility] Comment on above: Performed By: #### 2 [id number] #### [employer] [facility] [address] [place] [address] Urea nitrogen mass conc 19 mg/dL Normal 6-23 [facility] Comment on above: Performed By: #### 2 618204 #### [employer] [facility] [place] [address] Urea nitrogen/Creatinine mass ratio 17.3 ratio Normal 5.4-30.0 [facility] Comment on above: Performed By: #### 2 652413 #### [employer] [facility] [place] [address] CBC w/ Auto Diffon 9 Erythrocyte distribution width Ratio (RBC) 14.9 % High 11.5-14.5 [facility] Comment on above: Performed By: #### 2 [id number] #### [employer] [address] [place] [address] Hematocrit Volume Fraction (Bld) 41.5 % Low 42.0-52.0 [facility] Comment on above: Performed By: #### 2 869491 #### [employer] [address] [place] [address] Hemoglobin mass conc (Bld) 13.6 g/dL Normal 13.5-18.0 [facility] Comment on above: Performed By: #### 2 [id number] #### [employer] [address] [place], [place] [address] MCH Entitic mass (RBC) 29.6 pg Normal 27.0-31.0 [facility] Comment on above: Performed By: #### 2 532449 #### [employer] [address] [place], [place] [address] MCHC mass conc (RBC) 32.8 g/dL Low 33.0-37.0 [facility] Comment on above: Performed By: #### 2 135024 #### [employer] [address] [place], [place] [address] MCV Entitic volume (RBC) 90.4 fL Normal 78.0-100.0 [facility] Comment on above: Performed By: #### 2 020988 #### [employer] [address] [place] [address] Platelet mean volume Entitic volume (Bld) 10.8 fL Normal 7.4-11.0 [facility] Comment on above: Performed By: #### 2 [id number] #### [employer] [address] [place] [address] Platelets #/vol (Bld) 137 E3/mcL Normal 130-400 [facility] Comment on above: Performed By: #### 2 [id number] #### [employer] [address] [place] [address] RBC #/vol (Bld) 4.59 E6/mcL Normal 3.90-6.10 [facility] Comment on above: Performed By: #### 2 [id number] #### [employer] [address] [place], [place] [address] WBC #/vol (Bld) 6.2 E3/mcL Normal 3.6-11.0 [facility] Comment on above: Performed By: #### 2 837185 #### [employer] [address] [place], [place] [address] Glucose POCon 09-15-2018 Glucose mass conc 163 mg/dL High 70-99 [facility] Comment on above: Performed By: #### 2 872333 #### [employer] [address] [place] [address] Glucose mass conc 99 mg/dL Normal 70-99 [facility] Comment on above: Performed By: #### 2 816145 #### [place] [address] Troponin-Ion 09-15-2018 Troponin I.cardiac mass conc 0.01 ng/mL Normal 0.00-0.03 [facility] Comment on above: Performed By: #### 2 [id number] #### [employer] [address] [place], [place] [address] eGFRon 09-15-2018 GFR/1.73 sq M predicted among non-blacks MDRD vol rate/area (S/P/Bld) mL/min/{1.73_m2} Normal [facility] Comment on above: Order Comment: Order added by Discern Expert. Performed By: #### 2 464146 #### [employer] [address] [place] [address] Auto Diffon 09-14-2018 Basophils #/vol (Bld) 0.0 E3/mcL Normal 0.0-0.2 [facility] Comment on above: Order Comment: Order Added by Discern Expert. Performed By: #### 2 [id number] #### [employer] [address] [place] [address] Basophils/100 WBC (Bld) 0.6 % Normal 0.0-2.0 [facility] Comment on above: Order Comment: Order Added by Discern Expert. Performed By: #### 2 139491 #### [employer] [address] [place] [address] Eos Absolute 0.1 E3/mcL Normal 0.0-0.7 [facility] Comment on above: Order Comment: Order Added by Discern Expert. Performed By: #### 2 652249 #### [employer] [address] [place] [address] Eosinophils/100 WBC (Bld) 1.7 % Normal 0.0-11.0 [facility] Comment on above: Order Comment: Order Added by Discern Expert. Performed By: #### 2 808341 #### [employer] [address] [place] [address] Lymphocytes #/vol (Bld) 1.2 E3/mcL Normal 1.2-3.4 [facility] Comment on above: Order Comment: Order Added by Discern Expert. Performed By: #### 2 110046 #### [employer] [address] [place] [address] Lymphocytes/100 WBC (Bld) 16.5 % Low 20.0-55.0 [facility] Comment on above: Order Comment: Order Added by Discern Expert. Performed By: #### 2 142046 #### [employer] [address] [place] [address] [place] Absolute 0.8 E3/mcL High 0.0-0.7 [facility] Comment on above: Order Comment: Order Added by Discern Expert. Performed By: #### 2 801628 #### [employer] [address] [place] [address] Monocytes/100 WBC (Bld) 11.1 % High 0.0-10.0 [facility] Comment on above: Order Comment: Order Added by Discern Expert. Performed By: #### 2 130864 #### [employer] [address] [place] [address] Neutro Absolute 5.1 E3/mcL Normal 1.4-6.5 [facility] Comment on above: Order Comment: Order Added by Discern Expert. Performed By: #### 2 311632 #### [employer] [address] [place] [address] Neutro Auto 70.1 % Normal 37.0-75.0 [facility] Comment on above: Order Comment: Order Added by Discern Expert. Performed By: #### 2 [id number] #### [employer] [address] [place] [address] BMPon 09-14-2018 Anion gap molar conc 13 mmol/L Normal 10-20 [facility] Comment on above: Performed By: #### 2 279404 #### [employer] [address] [place] [address] Calcium mass conc 9.2 mg/dL Normal 8.6-10.3 [facility] Comment on above: Performed By: #### 2 259155 #### [employer] [address] [place] [address] Chloride molar conc 105 mmol/L Normal 98-107 [facility] Comment on above: Performed By: #### 2 017561 #### [employer] [address] [place] [address] CO2 molar conc 24.0 mmol/L Normal 21.0-32.0 [facility] Comment on above: Performed By: #### 2 136950 #### [employer] [address] [place] [address] Creatinine mass conc 1.2 mg/dL Normal 0.5-1.3 [facility] Comment on above: Performed By: #### 2 671000 #### [employer] [address] [place] [address] Glucose mass conc 129 mg/dL High 70-99 [facility] Comment on above: Performed By: #### 2 420619 #### [employer] [address] [place] [address] Potassium molar conc 3.9 mmol/L Normal 3.5-5.3 [facility] Comment on above: Performed By: #### 2 363109 #### [employer] [address] [place] [address] Sodium molar conc 138 mmol/L Normal 136-145 [facility] Comment on above: Performed By: #### 2 323067 #### [employer] [address] [place] [address] Urea nitrogen mass conc 19 mg/dL Normal 6-23 [facility] Comment on above: Performed By: #### 2 884215 #### [employer] [address] [place] [address] Urea nitrogen/Creatinine mass ratio 15.8 ratio Normal 5.4-30.0 [facility] Comment on above: Performed By: #### 2 701392 #### [employer] [address] [place] [address] CBC w/ Auto Diffon 201 9 Erythrocyte distribution width Ratio (RBC) 15.2 % High 11.5-14.5 [facility] Comment on above: Performed By: #### 2 143960 #### [employer] [address] [place] [address] Hematocrit Volume Fraction (Bld) 45.0 % Normal 42.0-52.0 [facility] Comment on above: Performed By: #### 2 094824 #### [employer] [address] [place] [address] Hemoglobin mass conc (Bld) 15.0 g/dL Normal 13.5-18.0 [facility] Comment on above: Performed By: #### 2 509482 #### [employer] [address] [place] [address] MCH Entitic mass (RBC) 29.8 pg Normal 27.0-31.0 [facility] Comment on above: Performed By: #### 2 947437 #### [employer] [address] [place] [address] MCHC mass conc (RBC) 33.4 g/dL Normal 33.0-37.0 [facility] Comment on above: Performed By: #### 2 096759 #### [employer] [address] [place] [address] MCV Entitic volume (RBC) 89.4 fL Normal 78.0-100.0 [facility] Comment on above: Performed By: #### 2 846925 #### [employer] [address] [place] [address] Platelet mean volume Entitic volume (Bld) 10.8 fL Normal 7.4-11.0 [facility] Comment on above: Performed By: #### 2 380698 #### [employer] [address] [place] [address] Platelets #/vol (Bld) 158 E3/mcL Normal 130-400 [facility] Comment on above: Performed By: #### 2 381363 #### [employer] [address] [place] [address] RBC #/vol (Bld) 5.04 E6/mcL Normal 3.90-6.10 [facility] Comment on above: Performed By: #### 2 831955 #### [employer] [address] [place] [address] WBC #/vol (Bld) 7.2 E3/mcL Normal 3.6-11.0 [facility] Comment on above: Performed By: #### 2 240328 #### [employer] [address] [place] [address] CT Head or Brain w/o Contras ton 09-14-2018 CT Head or Brain w/o Contrast Exam Date/Time: 09/14/2018 15:21 EDT Reason for Exam: Injury Report STUDY: CT Head or Brain w/o Contrast; 09/14/2018 3:21 pm INDICATION: Injury. COMPARISON: 11/28/2016 ACCESSION NUMBER(S): [id number] ORDERING CLINICIAN: Kirsty Nguyen TECHNIQUE: Volume acquisition [...] by: Radha Olivarez MD Technologist: IZAIAH Normal [facility] CT Spine Cervical w/o Contra ston 09-14-2018 CT Spine Cervical w/o Contrast Exam Date/Time: 09/14/2018 15:22 EDT Reason for Exam: Trauma Report STUDY: CT Spine Cervical w/o Contrast; 09/14/2018 3:22 pm INDICATION: Trauma. COMPARISON: None. ACCESSION NUMBER(S): [id number] ORDERING CLINICIAN: Kirsty Nguyen TECHNIQUE: Axial CT [...] by: Radha Olivarez MD Technologist: IZAIAH Normal [facility] Glucose POCon 09-14-2018 Glucose mass conc 132 mg/dL High 70-99 [facility] Comment on above: Performed By: #### 2 475651 #### [employer] [place] [address] [id number] 09-14-2018 Hemoglobin A1c/Hemoglobin.total mass fraction (Bld) 6.9 % High 4.0-6.3 [facility] Comment on above: Performed By: #### 2 058657 #### [employer] [address] [place] [address] Magnesiumon 09-14-2018 Magnesium mass conc 2.0 Int._Unit/L Normal 1.6-2.4 [facility] Comment on above: Performed By: #### 2 066284 #### [employer] [address] [place] [address] PTon 09-14-2018 INR Coag RelTime (PPP) 1.0 {INR} Normal 0.9-1.1 [facility] Comment on above: Result Comment: INR Recommended Therapeutic ranges: Prophylaxis/treatment of DVT and PE..........2.0-3.0 Prevention of systemic embolism.................2.0-3.0 Mechanical prosthetic values........................2.5-3.5 CRITICAL VALUE.........................................> 4.0 NOTE: New methodology started 05/16/2018 Performed By: #### 2 [id number] #### [employer] [facility] [place] [id number] Prothrombin time (PT) Coag time (PPP) 11.8 second(s) Normal 9.7-12.7 [facility] Comment on above: Result Comment: NOTE : New reference range established on 05/16/2018 due to change in methodology. Performed By: #### 2 [id number] #### [employer] [facility] [place] [address] PTTon 09-14-2018 aPTT Coag time (Bld) 32 second(s) Normal 28-38 [facility] Comment on above: Result Comment: NOTE :New reference range established 05/16/2018 due to change in methodology. Performed By: #### 2 [id number] #### [employer] [facility] [place] [address] TSHon 09-14-2018 Thyrotropin Qn 5.25 mcIU/mL Normal 0.30-5.60 [facility] Comment on above: Performed By: #### 2 752154 #### [employer] [address] [place], [place] [address] Troponin-Ion 09-14-2018 Troponin I.cardiac mass conc 0.02 ng/mL Normal 0.00-0.03 [facility] Comment on above: Performed By: #### 2 289718 #### [employer] [address] [place] [address] UA Completeon 09-14-2018 Color Nom (U) Straw Normal Yellow [facility] Comment on above: Performed By: #### 2 693686 #### [employer] [facility] [place] [address] Glucose mass conc (U) Negative Normal Negative [facility] Comment on above: Performed By: #### 2 085761 #### [employer] [address] [place] [address] Ketones Ql (U) Negative Normal Negative [facility] Comment on above: Performed By: #### 2 684318 #### [employer] [address] [place] [address] UA Blood Negative Normal Negative [facility] Comment on above: Performed By: #### 2 174859 #### [employer] [address] [place] [address] UA Clarity Clear Normal Clear [facility] Comment on above: Performed By: #### 2 095753 #### [employer] [address] [place] [address] UA Hyal Cast 3-5 Abnormal 0-2 [facility] Comment on above: Performed By: #### 2 750492 #### [employer] [address] [place] [address] UA Leuk Est Negative Normal Negative [facility] Comment on above: Performed By: #### 2 437499 #### [employer] [address] [place] [address] UA Mucous Trace Abnormal Trace [facility] Comment on above: Performed By: #### 2 763693 #### [employer] [address] [place] [address] UA Nitrite Negative Normal Negative [facility] Comment on above: Performed By: #### 2 506074 #### [employer] [address] [place] [address] UA pH 5.0 Normal 4.6-8.0 [facility] Comment on above: Performed By: #### 2 867694 #### [employer] [address] [place] [address] UA Protein Negative Normal Negative [facility] Comment on above: Performed By: #### 2 577015 #### [employer] [address] [place] [address] UA Spec Grav 1.009 Normal 1.003-1.03 0 [facility] Comment on above: Performed By: #### 2 080331 #### [employer] [address] [place] [address] UA Urobilinogen Negative Normal [facility] Comment on above: Result Comment: Due to a manufacturing issue, low positive urobilinogen results may be fasely positive. Correlate with urine bilirubin and additional clinical/laboratory findings to assess the risk of hemolytic anemia or liver disease. If clinically indicated, repeat testing with an alternate method is available by contacting the laboratory within 24 hours. Performed By: #### 2 191862 #### [employer] [facility] [address] [place] [address] Urobilinogen Qn (U) Negative Normal Negative [facility] Comment on above: Performed By: #### 2 379076 #### [employer] [facility] [address] [place] [address] XR Chest AP Portableon 09-14 XR Chest AP Portable Exam Date/Time: 09/14/2018 15:43 EDT Reason for Exam: Chest pain Report STUDY: XR Chest AP Portable; 09/14/2018 3:43 pm INDICATION: Chest pain. COMPARISON: 12/25/2016 ACCESSION NUMBER(S): [id number] ORDERING CLINICIAN: Kirsty Nguyen FINDINGS: CARDIOMEDIASTINAL SILHOUETTE: [...] pm Signed by: Iva Vargas MD Technologist: [facility] XR Humerus Lefton 09-14-2018 XR Humerus Left Exam Date/Time: 09/14/2018 15:43 EDT Reason for Exam: Pain, Traumatic Report STUDY: XR Humerus Left; XR Shoulder Complete Left;; 09/14/2018 3:43 pm INDICATION: Pain, Traumatic. COMPARISON: None. ACCESSION NUMBER(S): [id number]; [id number] ORDERING CLINICIAN: Kirsty Nguyen FINDINGS: Five views [...] pm Signed by: Iva Vargas MD Technologist: [facility] XR Knee Complete Righton XR Knee Complete Right Exam Date/Time: 09/14/2018 15:43 EDT Reason for Exam: Pain, Traumatic Report STUDY: XR Knee Complete Right;; 09/14/2018 3:43 pm INDICATION: Pain, Traumatic. COMPARISON: None. ACCESSION NUMBER(S): [id number] ORDERING CLINICIAN: Kirsty Nguyen FINDINGS: Four views right knee: There is no fracture, dislocation or joint effusion. There is swelling anterior to the patella and infrapatellar tendon. IMPRESSION: No acute bony abnormality right knee, soft tissue swelling. FINAL REPORT Dictated: 09/14/2018 4:19 pm Iva Vargas MD Signed (Electronic Signature): 09/14/2018 4:19 pm Signed by: Iva Vargas MD Technologist: [facility] XR Shoulder Complete Lefton 09-14-2018 XR Shoulder Complete Left Exam Date/Time: 09/14/2018 15:43 EDT Reason for Exam: Pain, Traumatic Report STUDY: XR Humerus Left; XR Shoulder Complete Left;; 09/14/2018 3:43 pm INDICATION: Pain, Traumatic. COMPARISON: None. ACCESSION NUMBER(S): [id number]; [id number] ORDERING CLINICIAN: Kirsty Nguyen FINDINGS: Five views [...] pm Signed by: Iva Vargas MD Technologist: [facility] eGFRon 09-14-2018 GFR/1.73 sq M predicted among non-blacks MDRD vol rate/area (S/P/Bld) mL/min/{1.73_m2} [facility] Comment on above: Order Comment: Order added by Discern Expert. Performed By: #### 1 [id number] #### [employer] [address] [place] [address] Vital Signs Date Time Vital Sign Value Performing Clinician Facility 01-01-2025 12:20-0400 Body temperature 98.7 [degF] Dr. Marycarmen Rodriguez DO Work Phone: [facility] 01-01-2025 12:20-0400 Diastolic blood pressure 78 mm[Hg] Dr. Marycarmen Rodriguez DO Work Phone: [facility] 01-01-2025 12:20-0400 Heart rate 78 /min Dr. Marycarmen Rodriguez DO Work Phone: [facility] 01-01-2025 12:20-0400 Respiratory rate 16 /min Dr. Marycarmen Rodriguez DO Work Phone: [facility] 01-01-2025 12:20-0400 SaO2% (BldA) [Mass fraction] 99 % Dr. Marycarmen Rodriguez DO Work Phone: [facility] 01-01-2025 12:20-0400 Systolic blood pressure 101 mm[Hg] Dr. Marycarmen Rodriguez DO Work Phone: [facility] 01-01-2025 08:53-0400 Body height 175.[address] Marycarmen Rodriguez DO Work Phone: [facility] 01-01-2025 08:53-0400 Body mass index (BMI) [Ratio] 34 kg/m2 Dr. Marycarmen Rodriguez DO Work Phone: [facility] 01-01-2025 08:53-0400 Body weight 104.[address] Marycarmen Rodriguez DO Work Phone: [facility] 12-26-2024 14:39-0400 Body temperature 98.7 [degF] Dr. Marycarmen Rodriguez DO Work Phone: [facility] 12-26-2024 14:39-0400 Diastolic blood pressure 68 mm[Hg] Dr. Marycarmen Rodriguez DO Work Phone: [facility] 12-26-2024 14:39-0400 Heart rate 88 /min Dr. Marycarmen Rodriguez DO Work Phone: [facility] 12-26-2024 14:39-0400 Respiratory rate 18 /min Dr. Marycarmen Rodriguez DO Work Phone: [facility] 12-26-2024 14:39-0400 SaO2% (BldA) [Mass fraction] 95 % Dr. Marycarmen Rodriguez DO Work Phone: [facility] 12-26-2024 14:39-0400 Systolic blood pressure 104 mm[Hg] Dr. Marycarmen Rodriguez DO Work Phone: [facility] 12-26-2024 07:42-0400 Inhaled oxygen concentration 21 % Dr. Marycarmen Rodriguez DO Work Phone: [facility] 12-26-2024 04:00-0400 Body mass index (BMI) [Ratio] 32 kg/m2 Dr. Marycarmen Rodriguez DO Work Phone: [facility] 12-26-2024 04:00-0400 Body weight 98.[address] Marycarmen Rodriguez DO Work Phone: [facility] 12-25-2024 11:30-0400 Body height 175.[address] Marycarmen Rodriguez DO Work Phone: [facility] 12-20-2024 14:00-0400 Diastolic blood pressure 65 mm[Hg] Dr. Marycarmen Rodriguez DO Work Phone: [facility] 12-20-2024 14:00-0400 Heart rate 63 /min Dr. Marycarmen Rodriguez DO Work Phone: [facility] 12-20-2024 14:00-0400 Respiratory rate 20 /min Dr. Marycarmen Rodriguez DO Work Phone: [facility] 12-20-2024 14:00-0400 SaO2% (BldA) [Mass fraction] 96 % Dr. Marycarmen Rodriguez DO Work Phone: [facility] 12-20-2024 14:00-0400 Systolic blood pressure 103 mm[Hg] Dr. Marycarmen Rodriguez DO Work Phone: [facility] 12-20-2024 13:15-0400 Body temperature 97.7 [degF] Dr. Marycarmen Rodriguez DO Work Phone: [facility] 12-20-2024 11:46-0400 Body mass index (BMI) [Ratio] 31.8 kg/m2 Dr. Marycarmen Rordiguez DO Work Phone: [facility] 12-20-2024 11:46-0400 Body weight 97.[address] Marycarmen Rodriguez DO Work Phone: [facility] 12-17-2024 15:10-0400 Body temperature 97.9 [degF] Dr. Marycarmen Rodriguez DO Work Phone: [facility] 12-17-2024 15:10-0400 Diastolic blood pressure 82 mm[Hg] Dr. Marycarmen Rodriguez DO Work Phone: [facility] 12-17-2024 15:10-0400 Heart rate 78 /min Dr. Marycarmen Rodriguez DO Work Phone: [facility] 12-17-2024 15:10-0400 Respiratory rate 18 /min Dr. Marycarmen Rodriguez DO Work Phone: [facility] 12-17-2024 15:10-0400 SaO2% (BldA) [Mass fraction] 99 % Dr. Marycarmen Rodriguez DO Work Phone: [facility] 12-17-2024 15:10-0400 Systolic blood pressure 100 mm[Hg] Dr. Marycarmen Rodriguez DO Work Phone: [facility] 12-17-2024 05:06-0400 Body mass index (BMI) [Ratio] 31.3 kg/m2 Dr. Marycarmen Rodriguez DO Work Phone: [facility] 12-17-2024 05:06-0400 Body weight 96.[address] Marycarmen Rodriguez DO Work Phone: [facility] 12-17-2024 02:53-0400 Inhaled oxygen concentration 21 % Dr. Marycarmen Rodriguez DO Work Phone: [facility] 12-16-2024 11:59-0400 Body height 175.[address] Marycarmen Rodriguez DO Work Phone: [facility] 12-12-2024 10:23-0400 Body height 175.[address] Marycarmen Rodriguez DO Work Phone: [facility] 12-12-2024 10:23-0400 Body mass index (BMI) [Ratio] 31.7 kg/m2 Dr. Marycarmen Rodriguez DO Work Phone: [facility] 12-12-2024 10:23-0400 Body weight 97.[address] Marycarmen Rodriguez DO Work Phone: [facility] 12-12-2024 10:23-0400 Diastolic blood pressure 74 mm[Hg] Dr. Marycarmen Rodriguez DO Work Phone: [facility] 12-12-2024 10:23-0400 Heart rate 75 /min Dr. Marycarmen Rodriguez DO Work Phone: [facility] 12-12-2024 10:23-0400 Respiratory rate 16 /min Dr. Marycarmen Rodriguez DO Work Phone: [facility] 12-12-2024 10:23-0400 Systolic blood pressure 106 mm[Hg] Dr. Marycarmen Rodriguez DO Work Phone: [facility] 12-08-2024 12:30-0400 Body temperature 97.7 [degF] Dr. Marycarmen Rodriguez DO Work Phone: [facility] 12-08-2024 12:30-0400 Diastolic blood pressure 81 mm[Hg] Dr. Marycarmen Rodriguez DO Work Phone: [facility] 12-08-2024 12:30-0400 Heart rate 72 /min Dr. Marycarmen Rodriguez DO Work Phone: [facility] 12-08-2024 12:30-0400 Respiratory rate 18 /min Dr. Marycarmen Rodriguez DO Work Phone: [facility] 12-08-2024 12:30-0400 SaO2% (BldA) [Mass fraction] 96 % Dr. Marycarmen Rodriguez DO Work Phone: [facility] 12-08-2024 12:30-0400 Systolic blood pressure 121 mm[Hg] Dr. Marycarmen Rodriguez DO Work Phone: [facility] 12-08-2024 01:20-0400 Inhaled oxygen concentration 21 % Dr. Marycarmen Rodriguez DO Work Phone: [facility] 12-07-2024 17:24-0400 Body height 175.[address] Marycarmen Rodriguez DO Work Phone: [facility] 12-07-2024 17:24-0400 Body mass index (BMI) [Ratio] 32.1 kg/m2 Dr. Marycarmen Rodriguez DO Work Phone: [facility] 12-07-2024 17:24-0400 Body weight 98.[address] Marycarmen Rodriguez DO Work Phone: [facility] 12-07-2024 16:00-0400 SaO2% (BldA) [Mass fraction] 97 % Dr. Marycarmen Rodriguez DO Work Phone: [facility] 12-07-2024 15:13-0400 Body temperature 98.2 [degF] Dr. Marycarmen Rodriguez DO Work Phone: [facility] 12-07-2024 15:13-0400 Diastolic blood pressure 61 mm[Hg] Dr. Marycarmen Rodriguez DO Work Phone: [facility] 12-07-2024 15:13-0400 Heart rate 22 /min Dr. Marycarmen Rodriguez DO Work Phone: [facility] 12-07-2024 15:13-0400 Respiratory rate 22 /min Dr. Marycarmen Rodriguez DO Work Phone: [facility] 12-07-2024 15:13-0400 Systolic blood pressure 114 mm[Hg] Dr. Marycarmen Rodriguez DO Work Phone: [facility] 12-07-2024 11:05-0400 Inhaled oxygen flow rate 2 L/min Dr. Marycarmen Rodriguez DO Work Phone: [facility] 12-07-2024 10:52-0400 Body height 175.[address] Marycarmen Rodriguez DO Work Phone: [facility] 12-07-2024 10:52-0400 Body mass index (BMI) [Ratio] 33.4 kg/m2 Dr. Marycarmen Rodriguez DO Work Phone: [facility] 12-07-2024 10:52-0400 Body weight 102.[address] Marycarmen Rodriguez DO Work Phone: [facility] 12-06-2024 12:45-0400 Body temperature 98 [degF] Dr. Marycarmen Rodriguez DO Work Phone: [facility] 12-06-2024 12:45-0400 Diastolic blood pressure 86 mm[Hg] Dr. Marycarmen Rodriguez DO Work Phone: [facility] 12-06-2024 12:45-0400 Heart rate 84 /min Dr. Marycarmen Rodriguez DO Work Phone: [facility] 12-06-2024 12:45-0400 Respiratory rate 14 /min Dr. Marycarmen Rodriguez DO Work Phone: [facility] 12-06-2024 12:45-0400 SaO2% (BldA) [Mass fraction] 99 % Dr. Marycarmen Rodriguez DO Work Phone: [facility] 12-06-2024 12:45-0400 Systolic blood pressure 126 mm[Hg] Dr. Marycarmen Rodriguez DO Work Phone: [facility] 12-06-2024 06:00-0400 Body mass index (BMI) [Ratio] 33 kg/m2 Dr. Marycarmen Rodriguez DO Work Phone: [facility] 12-06-2024 06:00-0400 Body weight 101.[address] Marycarmen Rodriguez DO Work Phone: [facility] 12-06-2024 00:25-0400 Inhaled oxygen concentration 21 % Dr. Marycarmen Rodriguez DO Work Phone: [facility] 12-05-2024 08:28-0400 Heart rate 70 /min Dr. Marycarmen Rodriguez DO Work Phone: [facility] 12-05-2024 08:06-0400 Body temperature 97.6 [degF] Dr. Marycarmen Rodriguez DO Work Phone: [facility] 12-05-2024 08:06-0400 Diastolic blood pressure 80 mm[Hg] Dr. Marycarmen Rodriguez DO Work Phone: [facility] 12-05-2024 08:06-0400 Respiratory rate 18 /min Dr. Marycarmen Rodriguez DO Work Phone: [facility] 12-05-2024 08:06-0400 SaO2% (BldA) [Mass fraction] 100 % Dr. Marycarmen Rodriguez DO Work Phone: [facility] 12-05-2024 08:06-0400 Systolic blood pressure 123 mm[Hg] Dr. Marycarmen Rodriguez DO Work Phone: [facility] 12-05-2024 05:20-0400 Body mass index (BMI) [Ratio] 33.1 kg/m2 Dr. Marycarmen Rodriguez DO Work Phone: [facility] 12-05-2024 05:20-0400 Body weight 101.[address] Marycarmen Rodriguez DO Work Phone: [facility] 12-04-2024 22:55-0400 Inhaled oxygen concentration 21 % Dr. Marycarmen Rodriguez DO Work Phone: [facility] 12-04-2024 08:07-0400 Inhaled oxygen flow rate 2 L/min Dr. Marycarmen Rodriguez DO Work Phone: [facility] 12-02-2024 21:54-0400 Body height 175.[address] Marycarmen Rodriguez DO Work Phone: [facility] 12-02-2024 20:56-0400 Body temperature 98.8 [degF] Dr. Marycarmen Rodriguez DO Work Phone: [facility] 12-02-2024 20:56-0400 Diastolic blood pressure 78 mm[Hg] Dr. Marycarmen Rodriguez DO Work Phone: [facility] 12-02-2024 20:56-0400 Heart rate 77 /min Dr. Marycarmen Rodriguez DO Work Phone: [facility] 12-02-2024 20:56-0400 Respiratory rate 21 /min Dr. Marycarmen Rodriguez DO Work Phone: [facility] 12-02-2024 20:56-0400 SaO2% (BldA) [Mass fraction] 96 % Dr. Marycarmen Rodriguez DO Work Phone: [facility] 12-02-2024 20:56-0400 Systolic blood pressure 114 mm[Hg] Dr. Marycarmen Rodriguez DO Work Phone: [facility] 12-02-2024 20:21-0400 Inhaled oxygen flow rate 3 L/min Dr. Marycarmen Rodriguez DO Work Phone: [facility] 12-02-2024 20:16-0400 Body height 175.[address] Marycarmen Rodriguez DO Work Phone: [facility] 12-02-2024 20:16-0400 Body mass index (BMI) [Ratio] 35.9 kg/m2 Dr. Marycarmen Rodriguez DO Work Phone: [facility] 12-02-2024 20:16-0400 Body weight 110.[address] Marycarmen Rodriguez DO Work Phone: [facility] 12-02-2024 14:08-0400 Body temperature 98.8 [degF] Dr. Marycarmen Rodriguez DO Work Phone: [facility] 12-02-2024 14:08-0400 Diastolic blood pressure 72 mm[Hg] Dr. Marycarmen Rodriguez DO Work Phone: [facility] 12-02-2024 14:08-0400 Heart rate 78 /min Dr. Marycarmen Rodriguez DO Work Phone: [facility] 12-02-2024 14:08-0400 Respiratory rate 18 /min Dr. Marycarmen Rodriguez DO Work Phone: [facility] 12-02-2024 14:08-0400 SaO2% (BldA) [Mass fraction] 98 % Dr. Maryacrmen Rodriguez DO Work Phone: [facility] 12-02-2024 14:08-0400 Systolic blood pressure 150 mm[Hg] Dr. Marycarmen Rodriguez DO Work Phone: [facility] 12-02-2024 14:01-0400 Inhaled oxygen flow rate 3 L/min Dr. Marycarmen Rodriguez DO Work Phone: [facility] 12-02-2024 08:32-0400 Body height 175.[address] Marycarmen Rodriguez DO Work Phone: [facility] 12-02-2024 08:32-0400 Body weight 109.[address] Marycarmen Rodriguez DO Work Phone: [facility] 12-02-2024 05:30-0400 Body mass index (BMI) [Ratio] 35.6 kg/m2 Dr. Marycarmen Rodriguez DO Work Phone: [facility] 11-30-2024 15:45-0400 Diastolic blood pressure 70 mm[Hg] Dr. Marycarmen Rodriguez DO Work Phone: [facility] 11-30-2024 15:45-0400 Systolic blood pressure 146 mm[Hg] Dr. Marycarmen Rodriguez DO Work Phone: [facility] 11-28-2024 09:15-0400 SaO2% (BldA) [Mass fraction] 94 % Dr. Marycarmen Rodriguez DO Work Phone: [facility] 11-28-2024 09:10-0400 Body temperature 97.5 [degF] Dr. Marycarmen Rodriguez DO Work Phone: [facility] 11-28-2024 09:10-0400 Diastolic blood pressure 64 mm[Hg] Dr. Marycarmen Rodriguez DO Work Phone: [facility] 11-28-2024 09:10-0400 Heart rate 86 /min Dr. Marycarmen Rodriguez DO Work Phone: [facility] 11-28-2024 09:10-0400 Respiratory rate 18 /min Dr. Marycarmen Rodriguez DO Work Phone: [facility] 11-28-2024 09:10-0400 Systolic blood pressure 129 mm[Hg] Dr. Marycarmen Rodriguez DO Work Phone: [facility] 11-28-2024 05:13-0400 Body mass index (BMI) [Ratio] 35.2 kg/m2 Dr. Marycarmen Rodriguez DO Work Phone: [facility] 11-28-2024 05:13-0400 Body weight 108.[address] Marycarmen Rodriguez DO Work Phone: [facility] 11-27-2024 15:54-0400 Body height 175.[address] Marycarmen Rodriguez DO Work Phone: [facility] 11-27-2024 15:54-0400 Body mass index (BMI) [Ratio] 35.4 kg/m2 Dr. Marycarmen Rodriguez DO Work Phone: [facility] 11-27-2024 15:54-0400 Body weight 108.[address] Marycarmen Rodriguez DO Work Phone: [facility] 11-27-2024 13:45-0400 Diastolic blood pressure 68 mm[Hg] Dr. Marycarmen Rodriguez DO Work Phone: [facility] 11-27-2024 13:45-0400 Heart rate 75 /min Dr. Marycarmen Rodriguez DO Work Phone: [facility] 11-27-2024 13:45-0400 Respiratory rate 21 /min Dr. Marycarmen Rodriguez DO Work Phone: [facility] 11-27-2024 13:45-0400 SaO2% (BldA) [Mass fraction] 95 % Dr. Marycarmen Rodriguez DO Work Phone: [facility] 11-27-2024 13:45-0400 Systolic blood pressure 115 mm[Hg] Dr. Marycarmen Rodriguez DO Work Phone: [facility] 11-26-2024 21:38-0400 Body temperature 98.1 [degF] Dr. Marycarmen Rodriguez DO Work Phone: [facility] 11-26-2024 21:38-0400 Diastolic blood pressure 68 mm[Hg] Dr. Marycramen Rodriguez DO Work Phone: [facility] 11-26-2024 21:38-0400 Heart rate 68 /min Dr. Marycarmen Rodriguez DO Work Phone: [facility] 11-26-2024 21:38-0400 Respiratory rate 18 /min Dr. Marycarmen Rodriguez DO Work Phone: [facility] 11-26-2024 21:38-0400 SaO2% (BldA) [Mass fraction] 98 % Dr. Marycarmen Rodriguez DO Work Phone: [facility] 11-26-2024 21:38-0400 Systolic blood pressure 132 mm[Hg] Dr. Marycarmen Rodriguez DO Work Phone: [facility] 11-26-2024 18:03-0400 Inhaled oxygen flow rate 2 L/min Dr. Marycarmen Rodriguez DO Work Phone: [facility] 11-26-2024 17:37-0400 Body height 175.[address] Marycarmen Rodriguez DO Work Phone: [facility] 11-26-2024 17:37-0400 Body mass index (BMI) [Ratio] 37.3 kg/m2 Dr. Marycarmen Rodriguez DO Work Phone: [facility] 11-26-2024 17:37-0400 Body weight 114.[address] Marycarmen Rodriguez DO Work Phone: [facility] 11-22-2024 10:41-0400 Body mass index (BMI) [Ratio] 35.9 kg/m2 Dr. Marycarmen Rodriguez DO Work Phone: [facility] 11-22-2024 10:41-0400 Body weight 110.[address] Marycarmen Rodriguez DO Work Phone: [facility] 11-22-2024 10:41-0400 Diastolic blood pressure 62 mm[Hg] Dr. Marycarmen Rodriguez DO Work Phone: [facility] 11-22-2024 10:41-0400 Heart rate 66 /min Dr. Marycarmen Rodriguez DO Work Phone: [facility] 11-22-2024 10:41-0400 Respiratory rate 20 /min Dr. Marycarmen Rodriguez DO Work Phone: [facility] 11-22-2024 10:41-0400 Systolic blood pressure 107 mm[Hg] Dr. Marycarmen Rodriguez DO Work Phone: [facility] 10-31-2024 07:44-0400 Body mass index (BMI) [Ratio] 35.4 kg/m2 Dr. Marycarmen Rodriguez DO Work Phone: [facility] 10-31-2024 07:44-0400 Body temperature 97.1 [degF] Dr. Marycarmen Rodriguez DO Work Phone: [facility] 10-31-2024 07:44-0400 Body weight 108.[address] Marycarmen Rodriguez DO Work Phone: [facility] 10-31-2024 07:44-0400 Diastolic blood pressure 75 mm[Hg] Dr. Marycarmen Rodriguez DO Work Phone: [facility] 10-31-2024 07:44-0400 Heart rate 64 /min Dr. Marycarmen Rodriguez DO Work Phone: [facility] 10-31-2024 07:44-0400 Respiratory rate 20 /min Dr. Marycarmen Rodriguez DO Work Phone: [facility] 10-31-2024 07:44-0400 SaO2% (BldA) [Mass fraction] 97 % Dr. Marycarmen Rodriguez DO Work Phone: [facility] 10-31-2024 07:44-0400 Systolic blood pressure 135 mm[Hg] Dr. Marycarmen Rodriguez DO Work Phone: [facility] 10-25-2024 08:10-0400 Body height 175.[address] Marycarmen Rodriguez DO Work Phone: [facility] 10-25-2024 08:10-0400 Body mass index (BMI) [Ratio] 35.9 kg/m2 Dr. Marycarmen Rodriguez DO Work Phone: [facility] 10-25-2024 08:10-0400 Body weight 110.[address] Marycarmen Rodriguez DO Work Phone: [facility] 10-25-2024 08:10-0400 Diastolic blood pressure 85 mm[Hg] Dr. Marycarmen Rodriguez DO Work Phone: [facility] 10-25-2024 08:10-0400 Heart rate 85 /min Dr. Marycarmen Rodriguez DO Work Phone: [facility] 10-25-2024 08:10-0400 Respiratory rate 18 /min Dr. Marycarmen Rodriguez DO Work Phone: [facility] 10-25-2024 08:10-0400 Systolic blood pressure 121 mm[Hg] Dr. Marycarmen Rodriguez DO Work Phone: [facility] 09-20-2024 09:15-0400 Body height 175.[address] Marycarmen Rodriguez DO Work Phone: [facility] 09-20-2024 09:15-0400 Body mass index (BMI) [Ratio] 35.6 kg/m2 Dr. Marycarmen Rodriguez DO Work Phone: [facility] 09-20-2024 09:15-0400 Body temperature 96.8 [degF] Dr. Marycarmen Rodriguez DO Work Phone: [facility] 09-20-2024 09:15-0400 Body weight 109.[address] Marycarmen Rodriguez DO Work Phone: [facility] 09-20-2024 09:15-0400 Diastolic blood pressure 77 mm[Hg] Dr. Marycarmen Rodriguez DO Work Phone: [facility] 09-20-2024 09:15-0400 Heart rate 66 /min Dr. Marycarmen Rodriguez DO Work Phone: [facility] 09-20-2024 09:15-0400 Respiratory rate 18 /min Dr. Marycarmen Rodriguez DO Work Phone: [facility] 09-20-2024 09:15-0400 SaO2% (BldA) [Mass fraction] 97 % Dr. Marycarmen Rodriguez DO Work Phone: [facility] 09-20-2024 09:15-0400 Systolic blood pressure 121 mm[Hg] Dr. Marycarmen Rodriguez DO Work Phone: [facility] 07-18-2024 06:00-0400 Body height 175.[address] Marycarmen Rodriguez DO Work Phone: [facility] 07-18-2024 06:00-0400 Body weight 104.[address] Marycarmen Rodriguez DO Work Phone: [facility] 07-18-2024 06:00-0400 Heart rate 69 /min Dr. Maryacrmen Rodriguez DO Work Phone: [facility] 07-18-2024 06:00-0400 SaO2% (BldA) [Mass fraction] 97 % Dr. Marycarmen Rodriguez DO Work Phone: [facility] 07-03-2024 08:35-0500 Body mass index (BMI) [Ratio] 36.6 kg/m2 Dr. Marycarmen Rodriguez DO Work Phone: [facility] 07-03-2024 08:35-0500 Body temperature 97.5 [degF] Dr. Marycarmen Rodriguez DO Work Phone: [facility] 07-03-2024 08:35-0500 Body weight 109.[address] Marycarmen Rodriguez DO Work Phone: [facility] 07-03-2024 08:35-0500 Diastolic blood pressure 77 mm[Hg] Dr. Marycarmen Rodriguez DO Work Phone: [facility] 07-03-2024 08:35-0500 Heart rate 72 /min Dr. Marycarmen Rodriguez DO Work Phone: [facility] 07-03-2024 08:35-0500 Respiratory rate 20 /min Dr. Marycarmen Rodriguez DO Work Phone: [facility] 07-03-2024 08:35-0500 SaO2% (BldA) [Mass fraction] 96 % Dr. Marycarmen Rodriguez DO Work Phone: [facility] 07-03-2024 08:35-0500 Systolic blood pressure 116 mm[Hg] Dr. Marycarmen Rodriguez DO Work Phone: [facility] 04-17-2024 15:55-0500 Body height [address] Marycarmen Rodriguez DO Work Phone: [facility] 04-17-2024 15:55-0500 Body mass index (BMI) [Ratio] 36.9 kg/m2 Dr. Marycarmen Rodriguez DO Work Phone: [facility] 04-17-2024 15:55-0500 Body weight 110.[address] Marycarmen Rodriguez DO Work Phone: [facility] 04-17-2024 15:55-0500 Diastolic blood pressure 53 mm[Hg] Dr. Marycarmen Rodriguez DO Work Phone: [facility] 04-17-2024 15:55-0500 Heart rate 70 /min Dr. Marycarmen Rodriguez DO Work Phone: [facility] 04-17-2024 15:55-0500 Respiratory rate 18 /min Dr. Marycarmen Rodriguez DO Work Phone: [facility] 04-17-2024 15:55-0500 SaO2% (BldA) [Mass fraction] 94 % Dr. Marycarmen Rodriguez DO Work Phone: [facility] 04-17-2024 15:55-0500 Systolic blood pressure 91 mm[Hg] Dr. Marycarmen Rodriguez DO Work Phone: [facility] 03-27-2024 10:17-0500 Diastolic blood pressure 79 mm[Hg] Dr. Marycarmen Rodriguez DO Work Phone: [facility] 03-27-2024 10:17-0500 Heart rate 67 /min Dr. Marycarmen Rodriguez DO Work Phone: [facility] 03-27-2024 10:17-0500 Respiratory rate 18 /min Dr. Marycarmen Rodriguez DO Work Phone: [facility] 03-27-2024 10:17-0500 Systolic blood pressure 134 mm[Hg] Dr. Marycarmen Rodriguez DO Work Phone: [facility] 03-20-2024 08:28-0500 Body mass index (BMI) [Ratio] 37.5 kg/m2 Dr. Marycarmen Rodriguez DO Work Phone: [facility] 03-20-2024 08:28-0500 Body weight 112.[address] Marycarmen Rodriguez DO Work Phone: [facility] 03-20-2024 08:28-0500 Diastolic blood pressure 89 mm[Hg] Dr. Marycarmen Rodriguez DO Work Phone: [facility] 03-20-2024 08:28-0500 Heart rate 61 /min Dr. Marycarmen Rodriguez DO Work Phone: [facility] 03-20-2024 08:28-0500 Respiratory rate 18 /min Dr. Marycarmen Rodriguez DO Work Phone: [facility] 03-20-2024 08:28-0500 Systolic blood pressure 141 mm[Hg] Dr. Marycarmen Rodriguez DO Work Phone: [facility] 12-21-2022 07:51-0400 Body height 172.[address] Marycarmen Rodriguez Work Phone: [facility] 12-21-2022 07:51-0400 Body weight 85.[address] Marycarmen Rodriguez Work Phone: [facility] 12-18-2022 08:27-0400 Body mass index (BMI) [Ratio] 28.7 kg/m2 Dr. Marycarmen Rodriguez Work Phone: [facility] 12-15-2022 13:03-0400 Body mass index (BMI) [Ratio] 28.7 kg/m2 Dr. Marycarmen Rodriguez Work Phone: [facility] 12-15-2022 13:03-0400 Body weight 85.[address] Marycarmen Rodriguez Work Phone: [facility] 12-15-2022 13:03-0400 Diastolic blood pressure 92 mm[Hg] Dr. Marycarmen Rodriguez Work Phone: [facility] 12-15-2022 13:03-0400 Heart rate 72 /min Dr. Marycarmen Rodriguez Work Phone: [facility] 12-15-2022 13:03-0400 Respiratory rate 16 /min Dr. Marycarmen Rodriguez Work Phone: [facility] 12-15-2022 13:03-0400 Systolic blood pressure 156 mm[Hg] Dr. Marycarmen Rodriguez Work Phone: [facility] 10-13-2022 10:59-0400 Body height 172.72 cm Marycarmen SWAIN [facility] 10-13-2022 10:59-0400 Body mass index (BMI) [Ratio] 25.4 kg/m2 Marycarmen SWAIN [facility] 10-13-2022 10:59-0400 Body weight 75.74 kg Marycarmen [facility] 10-13-2022 10:59-0400 Diastolic blood pressure 75 mm[Hg] Marycarmen Jennifer [facility] 10-13-2022 10:59-0400 Heart rate 65 /min Marycarmen Jennifer [facility] 10-13-2022 10:59-0400 Respiratory rate 18 /min Marycarmen [facility] 10-13-2022 10:59-0400 SaO2% (BldA) [Mass fraction] 94 % Marycarmen [facility] 10-13-2022 10:59-0400 Systolic blood pressure 143 mm[Hg] Marycarmen [facility] 09-21-2022 15:30-0400 Body mass index (BMI) [Ratio] 34.7 kg/m2 Marycarmen [facility] 09-21-2022 15:27-0400 Body temperature 98 [degF] [facility] 09-21-2022 15:27-0400 Diastolic blood pressure 84 mm[Hg] Marycarmen [facility] 09-21-2022 15:27-0400 Heart rate 79 /min Marycarmen [facility] 09-21-2022 15:27-0400 Respiratory rate 17 /min Marycarmen [facility] 09-21-2022 15:27-0400 SaO2% (BldA) [Mass fraction] 96 % Marycarmen [facility] 09-21-2022 15:27-0400 Systolic blood pressure 143 mm[Hg] Marycarmen [facility] 09-21-2022 06:25-0400 Body weight 103.6 kg Marycarmen Jennifer [facility] 09-19-2022 01:30-0400 Inhaled oxygen concentration 21 % [facility] 09-01-2022 09:59-0400 Diastolic blood pressure 68 mm[Hg] Marycarmen [facility] 09-01-2022 09:59-0400 Heart rate 49 /min Marycarmen [facility] 09-01-2022 09:59-0400 Systolic blood pressure 127 mm[Hg] Marycarmen Jennifer [facility] 09-01-2022 09:57-0400 Body temperature 97.9 [degF] Marycarmen Jennifer [facility] 09-01-2022 09:57-0400 Respiratory rate 18 /min Marycarmen Jennifer [facility] 09-01-2022 09:57-0400 SaO2% (BldA) [Mass fraction] 93 % Marycarmen Jennifer [facility] 09-01-2022 04:08-0400 Body mass index (BMI) [Ratio] 35.2 kg/m2 Marycarmen Jennifer [facility] 09-01-2022 04:08-0400 Body weight 108.2 kg Marycarmen Jennifer [facility] 08-31-2022 11:42-0400 Body height 175.26 cm Marycarmen Jennifer [facility] 08-19-2022 10:01-0400 Body height 175.26 cm Marycarmen Jennifer [facility] 08-19-2022 10:01-0400 Body mass index (BMI) [Ratio] 35.4 kg/m2 Marycarmen Jennifer [facility] 08-19-2022 10:01-0400 Body weight 109.03 kg Marycarmen Jennifer [facility] 08-19-2022 10:01-0400 Diastolic blood pressure 79 mm[Hg] Marycarmen Jennifer [facility] 08-19-2022 10:01-0400 Heart rate 62 /min Marycarmen Jennifer [facility] 08-19-2022 10:01-0400 Respiratory rate 18 /min Marycarmen Jenniferdiogenes SWAIN [facility] 08-19-2022 10:01-0400 Systolic blood pressure 144 mm[Hg] Marycarmen Jennifer [facility] 04-16-2022 12:43-0500 Body height 175.[address] Marycarmen Rodriguez Work Phone: [facility] 04-16-2022 12:43-0500 Body mass index (BMI) [Ratio] 35.2 kg/m2 Dr. Marycarmen Rodriguez Work Phone: [facility] 04-16-2022 12:43-0500 Body temperature 97 [degF] Dr. Marycarmen Rodriguez Work Phone: [facility] 04-16-2022 12:43-0500 Body weight 108.[address] Marycarmen Rodriguez Work Phone: [facility] 04-16-2022 12:43-0500 Diastolic blood pressure 78 mm[Hg] Dr. Marycarmen Rodriguez Work Phone: [facility] 04-16-2022 12:43-0500 Heart rate 66 /min Dr. Marycarmen Rodriguez Work Phone: [facility] 04-16-2022 12:43-0500 Respiratory rate 18 /min Dr. Marycarmen Rodriguez Work Phone: [facility] 04-16-2022 12:43-0500 SaO2% (BldA) [Mass fraction] 94 % Dr. Marycarmen Rodriguez Work Phone: [facility] 04-16-2022 12:43-0500 Systolic blood pressure 125 mm[Hg] Dr. Marycarmen Rodriguez Work Phone: [facility] 04-14-2022 10:27-0500 Body mass index (BMI) [Ratio] 35.2 kg/m2 Dr. Marycarmen Rodriguez Work Phone: [facility] 04-14-2022 10:27-0500 Body weight 108.[address] Marycarmen Rodriguez Work Phone: [facility] 04-14-2022 10:27-0500 Diastolic blood pressure 68 mm[Hg] Dr. Marycarmen Rodriguez Work Phone: [facility] 04-14-2022 10:27-0500 Heart rate 64 /min Dr. Marycarmen Rodriguez Work Phone: [facility] 04-14-2022 10:27-0500 Respiratory rate 18 /min Dr. Marycarmen Rodriguez Work Phone: [facility] 04-14-2022 10:27-0500 Systolic blood pressure 130 mm[Hg] Dr. Marycarmen Rodriguez Work Phone: [facility] 03-27-2022 13:25-0500 Body temperature 97.9 [degF] Dr. Marycarmen Rodriguez Work Phone: [facility] 03-27-2022 13:25-0500 Diastolic blood pressure 86 mm[Hg] Dr. Marycarmen Rodriguez Work Phone: [facility] 03-27-2022 13:25-0500 Heart rate 86 /min Dr. Marycarmen Rodriguez Work Phone: [facility] 03-27-2022 13:25-0500 Respiratory rate 14 /min Dr. Marycarmen Rodriguez Work Phone: [facility] 03-27-2022 13:25-0500 SaO2% (BldA) [Mass fraction] 96 % Dr. Marycarmen Rodriguez Work Phone: [facility] 03-27-2022 13:25-0500 Systolic blood pressure 134 mm[Hg] Dr. Marycarmen Rodriguez Work Phone: [facility] 01-07-2022 11:07-0400 Body mass index (BMI) [Ratio] 34.9 kg/m2 Dr. Marycarmen Rodriguez Work Phone: [facility] Work Phone: 01-07-2022 11:07-0400 Body temperature 97.4 [degF] Dr. Marycarmen Rodriguez Work Phone: [facility] Work Phone: 01-07-2022 11:07-0400 Body weight 107.[address] Marycarmen Rodriguez Work Phone: [facility] Work Phone: 01-07-2022 11:07-0400 Diastolic blood pressure 87 mm[Hg] Dr. Marycarmen Rodriguez Work Phone: [facility] Work Phone: 01-07-2022 11:07-0400 Heart rate 60 /min Dr. Marycarmen Rodriguez Work Phone: [facility] Work Phone: 01-07-2022 11:07-0400 Respiratory rate 16 /min Dr. Marycarmen Rodriguez Work Phone: [facility] Work Phone: 01-07-2022 11:07-0400 SaO2% (BldA) [Mass fraction] 96 % Dr. Marycarmen Rodriguez Work Phone: [facility] Work Phone: 01-07-2022 11:07-0400 Systolic blood pressure 155 mm[Hg] Dr. Marycarmen Rodriguez Work Phone: [facility] Work Phone: 11-21-2021 10:24-0400 Body height 175.[address] Marycarmen Rodriguez Work Phone: [facility] Work Phone: 11-21-2021 10:24-0400 Body mass index (BMI) [Ratio] 34.9 kg/m2 Dr. Marycarmen Rodriguez Work Phone: [facility] Work Phone: 11-21-2021 10:24-0400 Body weight 107.[address] Marycarmen Rodriguez Work Phone: [facility] Work Phone: 11-21-2021 10:24-0400 Diastolic blood pressure 77 mm[Hg] Dr. Marycarmen Rodriguez Work Phone: [facility] Work Phone: 11-21-2021 10:24-0400 Heart rate 61 /min Dr. Marycarmen Rodriguez Work Phone: [facility] Work Phone: 11-21-2021 10:24-0400 Respiratory rate 18 /min Dr. Marycarmen Rodriguez Work Phone: [facility] Work Phone: 11-21-2021 10:24-0400 SaO2% (BldA) [Mass fraction] 97 % Dr. Marycarmen Rodriguez Work Phone: [facility] Work Phone: 11-21-2021 10:24-0400 Systolic blood pressure 138 mm[Hg] Dr. Marycarmen Rodriguez Work Phone: [facility] Work Phone: 11-16-2021 16:49-0400 Diastolic blood pressure 87 mm[Hg] Dr. Marycarmen Rodriguez Work Phone: [facility] Work Phone: 11-16-2021 16:49-0400 Heart rate 53 /min Dr. Marycarmen Rodriguez Work Phone: [facility] Work Phone: 11-16-2021 16:49-0400 Respiratory rate 16 /min Dr. Marycarmen Rodriguez Work Phone: [facility] Work Phone: 11-16-2021 16:49-0400 SaO2% (BldA) [Mass fraction] 93 % Dr. Marycarmen Rodriguez Work Phone: [facility] Work Phone: 11-16-2021 16:49-0400 Systolic blood pressure 117 mm[Hg] Dr. Marycarmen Rodriguez Work Phone: [facility] Work Phone: 11-16-2021 12:55-0400 Body mass index (BMI) [Ratio] 33.2 kg/m2 Dr. Marycarmen Rodriguez Work Phone: [facility] Work Phone: 11-16-2021 12:55-0400 Body temperature 97.6 [degF] Dr. Marycarmen Rodriguez Work Phone: [facility] Work Phone: 11-16-2021 12:55-0400 Body weight 102.[address] Marycarmen Rodriguez Work Phone: [facility] Work Phone: 09-16-2021 10:37-0400 Body height 175.[address] Marycarmen Rodriguez Work Phone: [facility] Work Phone: 09-16-2021 10:37-0400 Body mass index (BMI) [Ratio] 35.7 kg/m2 Dr. Marycarmen Rodriguez Work Phone: [facility] Work Phone: 09-16-2021 10:37-0400 Body weight 109.[address] Marycarmen Rodriguez Work Phone: [facility] Work Phone: 09-16-2021 10:37-0400 Diastolic blood pressure 69 mm[Hg] Dr. Marycarmen Rodriguez Work Phone: [facility] Work Phone: 09-16-2021 10:37-0400 Heart rate 50 /min Dr. Marycarmen Rodriguez Work Phone: [facility] Work Phone: 09-16-2021 10:37-0400 Respiratory rate 18 /min Dr. Marycarmen Rodriguez Work Phone: [facility] Work Phone: 09-16-2021 10:37-0400 Systolic blood pressure 122 mm[Hg] Dr. Marycarmen Rodriguez Work Phone: [facility] Work Phone: 08-01-2021 10:02-0400 Body mass index (BMI) [Ratio] 35.7 kg/m2 Dr. Marycarmen Rodriguez Work Phone: [facility] Work Phone: 08-01-2021 10:02-0400 Body weight 109.[address] Marycarmen Rodriguez Work Phone: [facility] Work Phone: 08-01-2021 10:02-0400 Diastolic blood pressure 81 mm[Hg] Dr. Marycarmen Rodriguez Work Phone: [facility] Work Phone: 08-01-2021 10:02-0400 Heart rate 59 /min Dr. Marycarmen Rodriguez Work Phone: [facility] Work Phone: 08-01-2021 10:02-0400 Respiratory rate 18 /min Dr. Marycarmen Rodriguez Work Phone: [facility] Work Phone: 08-01-2021 10:02-0400 SaO2% (BldA) [Mass fraction] 97 % Dr. Marycarmen Rodriguez Work Phone: [facility] Work Phone: 08-01-2021 10:02-0400 Systolic blood pressure 133 mm[Hg] Dr. Marycarmen Rodriguez Work Phone: [facility] Work Phone: 08-01-2021 10:02-0400 Body height 175.[address] Marycarmen Rodriguez Work Phone: [facility] Work Phone: 08-01-2021 10:02-0400 Body mass index (BMI) [Ratio] 35.7 kg/m2 Dr. Marycarmen Rodriguez Work Phone: [facility] Work Phone: 08-01-2021 10:02-0400 Body weight 109.[address] Marycarmen Rodriguez Work Phone: [facility] Work Phone: 08-01-2021 10:02-0400 Diastolic blood pressure 81 mm[Hg] Dr. aMrycarmen Rodriguez Work Phone: [facility] Work Phone: 08-01-2021 10:02-0400 Heart rate 59 /min Dr. Marycarmen Rodriguez Work Phone: [facility] Work Phone: 08-01-2021 10:02-0400 Respiratory rate 18 /min Dr. Marycarmen Rodriguez Work Phone: [facility] Work Phone: 08-01-2021 10:02-0400 SaO2% (BldA) [Mass fraction] 97 % Dr. Marycarmen Rodriguez Work Phone: [facility] Work Phone: 08-01-2021 10:02-0400 Systolic blood pressure 133 mm[Hg] Dr. Marycarmen Rodriguez Work Phone: [facility] Work Phone: 06-10-2021 18:38-0500 Diastolic blood pressure 75 mm[Hg] Dr. Marycarmen Rodriguez Work Phone: [facility] Work Phone: 06-10-2021 18:38-0500 Heart rate 57 /min Dr. Marycarmen Rodriguez Work Phone: [facility] Work Phone: 06-10-2021 18:38-0500 Respiratory rate 14 /min Dr. Marycarmen Rodriguez Work Phone: [facility] Work Phone: 06-10-2021 18:38-0500 SaO2% (BldA) [Mass fraction] 96 % Dr. Marycarmen Rodriguez Work Phone: [facility] Work Phone: 06-10-2021 18:38-0500 Systolic blood pressure 121 mm[Hg] Dr. Marycarmen Rodriguez Work Phone: [facility] Work Phone: 06-10-2021 13:36-0500 Body mass index (BMI) [Ratio] 34 kg/m2 Dr. Marycarmen Rodriguez Work Phone: [facility] Work Phone: 06-10-2021 13:36-0500 Body temperature 97 [degF] Dr. Marycarmen Rodriguez Work Phone: [facility] Work Phone: 06-10-2021 13:36-0500 Body weight 104.[address] Marycarmen Rodriguez Work Phone: [facility] Work Phone: 05-19-2021 16:55-0500 Respiratory rate 16 /min Dr. Marycarmen Rodriguez Work Phone: [facility] Work Phone: 05-19-2021 14:43-0500 Body temperature 96.5 [degF] Dr. Marycarmen Rodriguez Work Phone: [facility] Work Phone: 05-19-2021 14:43-0500 Diastolic blood pressure 94 mm[Hg] Dr. Marycarmen Rodriguez Work Phone: [facility] Work Phone: 05-19-2021 14:43-0500 Heart rate 63 /min Dr. Marycarmen Rodriguez Work Phone: [facility] Work Phone: 05-19-2021 14:43-0500 SaO2% (BldA) [Mass fraction] 99 % Dr. Marycarmen Rodriguez Work Phone: [facility] Work Phone: 05-19-2021 14:43-0500 Systolic blood pressure 172 mm[Hg] Dr. Marycarmen Rodriguez Work Phone: [facility] Work Phone: 05-19-2021 14:42-0500 Body mass index (BMI) [Ratio] 34 kg/m2 Dr. Marycarmen Rodriguez Work Phone: [facility] Work Phone: 05-19-2021 14:42-0500 Body weight 104.[address] Marycarmen Rodriguez Work Phone: [facility] Work Phone: 12-26-2020 10:29-0400 Diastolic blood pressure 76 mm[Hg] Eladio Ingram MD Work Phone: [facility] 12-26-2020 10:29-0400 Systolic blood pressure 141 mm[Hg] Eladio Ingram MD Work Phone: [facility] 12-26-2020 10:24-0400 Body height 175.3 cm Eladio Ingram MD Work Phone: [facility] 12-26-2020 10:24-0400 Body mass index (BMI) [Ratio] 33.67 kg/m2 Eladio Ingrma MD Work Phone: [facility] 12-26-2020 10:24-0400 Body weight 103.42 kg Eladio Ingram MD Work Phone: [facility] 12-26-2020 10:24-0400 Heart rate 59 /min Eladio Ingram MD Work Phone: [facility] 12-26-2020 10:24-0400 SaO2% (BldA) [Mass fraction] 95 % Eladio Ingram MD Work Phone: [facility] 10-09-2020 10:53-0400 Diastolic blood pressure 72 mm[Hg] Sagar Acuña CNP Work Phone: [facility] 10-09-2020 10:53-0400 Systolic blood pressure 134 mm[Hg] Sagar Acuña CNP Work Phone: [facility] 10-09-2020 09:59-0400 Body mass index (BMI) [Ratio] 34.6 kg/m2 Sagar Acuña CNP Work Phone: [facility] 10-09-2020 09:59-0400 Body weight 106.28 kg Sagar Acuña CNP Work Phone: [facility] 10-09-2020 09:59-0400 Heart rate 58 /min Sagar Acuña CNP Work Phone: [facility] 10-09-2020 09:59-0400 Respiratory rate 16 /min Sagar Acuña CNP Work Phone: [facility] 10-09-2020 09:59-0400 SaO2% (BldA) [Mass fraction] 94 % Sagar Acuña CNP Work Phone: [facility] 12-17-2016 11:21-0400 BMI (Body Mass Index) 32.99 kg/m2 Eladio Nataly [facility] Work Phone: 12-17-2016 11:21-0400 BP Diastolic 82 mm[Hg] Eladio Ingram [facility] Work Phone: 12-17-2016 11:21-0400 BP Systolic 150 mm[Hg] Eladio Ingram [facility] Work Phone: 12-17-2016 11:21-0400 Height 175.3 cm Eladio Ingram [facility] Work Phone: 12-17-2016 11:21-0400 Pulse (Heart Rate) 70 /min Eladio Ingram [facility] Work Phone: 12-17-2016 11:21-0400 Pulse Oximetry 97 % Eladio Ingram [facility] Work Phone: 12-17-2016 11:21-0400 Weight 101.33 kg Eladio Nataly [facility] Work Phone: Encounters Encounter Date Encounter Type Care Provider Facility Start: 01-15-2025 End: 01-15-2025 ambulatory [facility] Facility:[facility] Start: 01-11-2025 [facility] Facility: [facility] Start: 01-03-2025 End: 01-10-2025 Evaluation and management of inpatient DR JEFFREY SPIVEY MD [facility] Start: 01-03-2025 End: 01-03-2025 Emergency department patient visit Shaan Hirsch Facility:[facility] Start: 01-01-2025 End: 01-01-2025 Dr. Marycarmen Rodriguez DO Work Phone: -Emergency Department Work Phone: Start: 01-01-2025 End: 01-01-2025 Emergency department patient visit Dr. Marycarmen Rodriguez DO Work Phone: -Emergency Department Start: 12-29-2024 ambulatory [facility] Facility: [facility] Start: 12-28-2024 ambulatory [facility] Facility: [facility] Start: 12-28-2024 Boyd Marcus Jeanine Garcia Start: 12-27-2024 End: 12-27-2024 ambulatory [facility] Facility:[facility] Start: 12-27-2024 ambulatory Boyd Rock OLS Fa cility:[facility] Start: 12-27-2024 Boyd Marcus Jeanine Garcia Start: 12-26-2024 Dr. Eladio Melendez MD -[facility] Work Phone: Start: 12-25-2024 ambulatory [facility] Start: 12-25-2024 [facility] Start: 12-25-2024 ambulatory [facility]: [facility] Start: 12-25-2024 Dr. Eladio Melendez MD -[facility] Work Phone: Start: 12-24-2024 ambulatory [facility]: [facility] Start: 12-24-2024 End: 12-26-2024 Evaluation and management of inpatient [facility] Facility:[facility] Start: 12-24-2024 End: 12-26-2024 Dr. Eladio Melendez MD -Progressive Care Unit Work Phone: Start: 12-21-2024 End: 12-21-2024 ambulatory [facility] Facility:[facility] Start: 12-21-2024 Boyd Marcus Jeanine Garcia Start: 12-20-2024 End: 12-20-2024 ambulatory [facility] Facility:[facility] Start: 12-20-2024 End: 12-20-2024 Dr. Jody Servin MD -Emergency [facility] t Work Phone: Start: 12-20-2024 End: 12-20-2024 Emergency department patient visit [facility] Facility:[facility] Start: 12-20-2024 ambulatory [facility] Facility: [facility] Start: 12-20-2024 Boyd Marcus Jeanine Garcia Start: 12-18-2024 End: 12-18-2024 ambulatory [facility] Facility:[facility] Start: 12-18-2024 ambulatory [facility] Facility: [facility] Start: 12-18-2024 Boyd Marcus Jeanine Garcia Start: 12-17-2024 Dr. Marycarmen collins DO [facility] Work Phone: Start: 12-16-2024 Dr. Marycarmen collins DO [facility] Work Phone: Start: 12-16-2024 Dr. Lance Rodriguez MD -[facility] Start: 12-15-2024 End: 12-17-2024 Evaluation and management of inpatient Dr. Marycarmen Rodriguez DO Work Phone: -Progressive Care Unit Start: 12-15-2024 ambulatory Marycarmen [facility] Facility: [facility] Start: 12-15-2024 End: 12-17-2024 Dr. Marycarmen Marlow DO -Progressive Care Unit Work Phone: Start: 12-13-2024 ambulatory Marycarmen [facility] Facility: [facility] Start: 12-13-2024 Boyd Marcus Jeanine Garcia Start: 12-12-2024 End: 12-12-[address] Marycarmen Rodriguez DO Work Phone: -[facility] Start: 12-12-2024 End: 12-12-2024 Dr. Boyd Rock MD -[facility] Work Phone: Start: 12-12-2024 End: 12-12-[address] Marycarmen Rodriguez DO Work Phone: -Laboratory Start: 12-12-2024 End: 12-12-2024 Gustabo Pérez GROUP CONTROLLER-C -Laboratory Work Phone: Start: 12-12-2024 End: 12-12-2024 Gustabo Pérez GROUP CONTROLLER-C -[facility] Work Phone: Start: 12-12-2024 End: 12-12-[address] Marycarmen Rodriguez DO Work Phone: -[facility] Start: 12-12-2024 End: 12-12-2024 ambulatory [facility] Facility:[facility] Start: 12-08-2024 Dr. Alex Sanon MD -[facility] Work Phone: Start: 12-07-2024 End: 12-07-2024 ambulatory [facility] Facility:[facility] Start: 12-07-2024 End: 12-07-2024 Tess Balderas GROUP CONTROLLER-C -[facility] Work Phone: Start: 12-07-2024 End: 12-08-[address] Marycarmen Rodriguez DO Work Phone: -Progressive Care Unit Start: 12-07-2024 End: 12-08-2024 ambulatory [facility] Facility:[facility] Start: 12-07-2024 End: 12-08-2024 Dr. Shaan Santos DO -[facility] Work Phone: Start: 12-06-2024 End: 12-06-2024 Dr. Marcin Araujo MD -Pulmonary Services/Neurology Work Phone: Start: 12-06-2024 End: 12-06-[address] Marycarmen Rodriguez DO Work Phone: -Pulmonary Services/Neurology Start: 12-06-2024 Dr. Alex Sanon MD [facility] Work Phone: Start: 12-05-2024 Dr. Alex Sanon MD [facility] Work Phone: Start: 12-05-[address] Marycarmen vera DO Work Phone: -[facility] Start: 12-05-2024 Dr. Marcin Araujo MD [facility] Start: 12-04-2024 Dr. Abraham Ridley DO [facility] Work Phone: Start: 12-04-2024 Dr. Marcin Araujo MD [facility] Start: 12-03-2024 Dr. Ramonita Herron MD [facility] Work Phone: Start: 12-03-2024 Dr. Marcin Araujo MD [facility] Start: 12-03-2024 ambulatory [facility]: [facility] Start: 12-03-2024 End: 12-06-2024 Evaluation and management of inpatient Dr. Marycarmen Rodriguez DO Work Phone: -Progressive Care Unit Start: 12-03-2024 End: 12-06-2024 Dr. Alex Sanon MD -Progressive Care Unit Work Phone: Start: 12-02-2024 Dr. Marcin Araujo MD [facility] Start: 12-02-2024 ambulatory [facility]: [facility] Start: 12-02-2024 Evaluation and manag ement of inpatient Dr. Marycarmen Rodriguez DO Work Phone: -Intensive Care Unit Start: 12-02-2024 Dr. Abraham Ridley DO -Intensive Care Unit Work Phone: Start: 12-02-2024 Dr. Nickie [facility] Work Phone: Start: 12-01-2024 Dr. Marcin Araujo MD -[facility] Start: 11-30-2024 End: 12-02-2024 Evaluation and management of inpatient Dr. Marycarmen Rodriguez DO Work Phone: -Intensive Care Unit Start: 11-30-2024 ambulatory Marycarmen Rodriguez Facility: [facility] Start: 11-30-2024 End: 12-02-2024 Dr. Abraham Ridley DO -Intensive Care Unit Work Phone: Start: 11-27-2024 Dr. Jose Hay MD -[facility] Start: 11-27-[address] Marycarmen vera DO Work Phone: -[facility] Start: 11-27-2024 End: 11-28-2024 ambulatory Marycarmen Rodriguez Facility:[facility] Start: 11-27-2024 End: 11-28-[address] [...] Dr. Marycarmen Rodriguez DO Work Phone: -Radiology [facility] Start: 11-22-2024 End: 11-22-2024 Gustabo POOL -Radiology [facility] Work Phone: Start: 11-22-2024 End: 11-22-2024 Gustabo POOL -[facility] Work Phone: Start: 11-22-2024 End: 11-22-[address] Marycarmen Rodriguez DO Work Phone: -[facility] Start: 11-22-2024 End: 11-22-2024 ambulatory Marycarmen [facility] Facility:[facility] Start: 11-20-2024 End: 11-20-[address] Marycarmen Rodriguez DO Work Phone: -Radiology [facility] Start: 11-20-2024 End: 11-20-2024 Dr. Brooks Carpenter MD -Radiology [facility] Work Phone: Start: 11-20-2024 End: 11-20-2024 ambulatory Marycarmen ChiuJennifer Facility:[facility] Start: 11-13-2024 ambulatory [facility] Facility: [facility] Start: 11-13-2024 Non-patient / Non-visit Dr. Jose colon MD -[facility] Start: 11-13-2024 Dr. Jose Hay MD -[facility] Start: 11-10-2024 End: 11-10-[address] Marycarmen Rodriguez DO Work Phone: -Sleep Lab Start: 11-10-2024 End: 11-10-2024 Patient encounter procedure GROUP CONTROLLER Maren Olivas -Sleep Lab Work Phone: Start: 11-10-2024 End: 11-10-2024 GROUP CONTROLLER Maren Olivas -Sleep Lab Work Phone: Start: 11-10-2024 ambulatory Marycarmen [facility] Facility: [facility] Start: 11-10-2024 Non-patient / Non-visit Dr. Lance pereira MD -[facility] Work Phone: Start: 11-10-2024 Dr. Lance Rodriguez MD -[facility] Work Phone: Start: 11-10-2024 End: 11-10-[address] Marycarmen Rodriguez DO Work Phone: -Cardiovascular Services Start: 11-10-2024 End: 11-10-2024 Patient encounter procedure Gustabo Pérez NP-Jaziel -Cardiovascular Services Work Phone: Start: 11-10-2024 End: 11-10-2024 Gustabo Pérez GROUP CONTROLLER-C -Cardiovascular Services Work Phone: Start: 11-09-2024 End: 11-10-[address] Marycarmen Rodriguez DO Work Phone: -[facility] Start: 11-09-2024 End: 11-09-[address] Marycarmen Rodriguez DO -[facility] Start: 11-09-2024 End: 11-09-2024 Dr. Marycarmen Rodriguez DO -[facility] Start: 11-09-2024 End: 11-09-2024 ambulatory Marycarmen Rodriguez Facility:[facility] Start: 10-31-2024 End: 10-31-2024 Patient encounter procedure ELIAZAR Olivas -[facility] Work Phone: Start: 10-31-2024 End: 10-31-2024 GROUP CONTROLLER Maren Olivas -[facility] Work Phone: Start: 10-31-2024 End: 10-31-[address] Marycamren Rodriguez DO Work Phone: -[facility] Start: 10-26-2024 End: 10-26-[address] Marycarmen Rodriguez DO Work Phone: -Sleep Lab Start: 10-26-2024 End: 10-26-2024 Patient encounter procedure Marni Horn GROUP CONTROLLER-C -Sleep Lab Work Phone: Start: 10-26-2024 End: 10-26-2024 Marni Horn NP-C -Sleep Lab Work Phone: Start: 10-25-2024 End: 10-25-2024 Patient encounter procedure Gustabo Pérez GROUP CONTROLLER-C -[facility] Work Phone: Start: 10-25-2024 End: 10-25-2024 Gustabo Pérez GROUP CONTROLLER-C -[facility] Work Phone: Start: 10-25-2024 End: 10-26-[address] Marycarmen Rodriguez DO Work Phone: [facility] Work Phone: Start: 10-18-2024 End: 10-18-[address] Marycarmen Rodriguez DO Work Phone: [facility] Work Phone: Start: 10-18-2024 End: 10-18-2024 Patient encounter procedure Marni Horn GROUP CONTROLLER-C -Sleep Lab Work Phone: Start: 10-18-2024 End: 10-18-2024 Marni Horn GROUP CONTROLLER-C -Sleep Lab Work Phone: Start: 10-18-2024 End: 10-18-[address] Marycarmen Rodriguez DO Work Phone: [facility] Work Phone: Start: 10-18-2024 End: 10-18-[address] Brooks Carpenter MD -Laboratory Work Phone: Start: 10-18-2024 End: 10-18-2024 Dr. Brooks Carpenter MD -Laboratory Work Phone: Start: 10-18-2024 End: 10-18-2024 ambulatory Marycarmen Rodriguez Facility:[facility] Start: 09-29-2024 End: 09-29-[address] Marycarmen Rodriguez DO Work Phone: [facility] Work Phone: Start: 09-29-2024 End: 09-29-[address] Marycarmen Rodriguez DO -Laboratory [facility] Work Phone: Start: 09-29-2024 End: 09-29-2024 Dr. Marycarmen Rodriguez DO -Laboratory Lynn gifford Work Phone: Start: 09-29-2024 End: 09-29-2024 ambulatory Marycarmen Rodriguez Facility:[facility] Start: 09-22-2024 End: 09-22-[address] Marycarmen Rodriguez DO Work Phone: [facility] Work Phone: Start: 09-22-2024 End: 09-22-2024 Patient encounter procedure Marni Horn GROUP CONTROLLER-C -Sleep Lab Work Phone: Start: 09-22-2024 End: 09-22-2024 Marni Horn GROUP CONTROLLER-C -Sleep Lab Work Phone: Start: 09-22-2024 End: 09-22-2024 ambulatory Marni Horn NP Facility:[facility] Start: 09-20-2024 End: 09-20-[address] Marycarmen Rodriguez DO Work Phone: [facility] Work Phone: Start: 09-20-2024 End: 09-20-2024 Patient encounter procedure GROUP CONTROLLER Maren Olivas -Laboratory Work Phone: Start: 09-20-2024 End: 09-20-2024 GROUP CONTROLLER Maren Olivas -Laboratory Work Phone: Start: 09-20-2024 End: 09-20-2024 Patient encounter procedure GROUP CONTROLLER Maren Olivas -[facility] Work Phone: Start: 09-20-2024 End: 09-20-2024 GROUP CONTROLLER Maren Olivas -[facility] Work Phone: Start: 09-20-2024 End: 09-20-[address] Marycarmen Rodriguez DO Work Phone: [facility] Work Phone: Start: 09-20-2024 End: 09-20-2024 ambulatory Maren Olivas Facility:[facility] Start: 08-03-2024 End: 08-03-[address] Marycarmen Rodriguez DO Work Phone: [facility] Work Phone: Start: 08-03-2024 End: 08-03-2024 Patient encounter procedure Marni Horn GROUP CONTROLLER-C -Sleep Lab Work Phone: Start: 08-03-2024 End: 08-03-2024 Marni Horn NP-C -Sleep Lab Work Phone: Start: 08-03-2024 End: 08-03-2024 ambulatory Marycarmne Rodriguez Facility:[facility] Start: 07-18-2024 ambulatory Marycarmen Rodriguez Facility: [facility] Start: 07-18-2024 Non-patient / Non-visit Dr. Zen schultz DO -[facility] Start: 07-18-2024 End: 07-18-[address] Marycarmen Rodriguez DO Work Phone: [facility] Work Phone: Start: 07-18-2024 End: 07-18-2024 Patient encounter procedure Marni Horn NP-C -Pulmonary Services/Neurology Work Phone: Start: 07-17-2024 Non-patient / Non-visit Dr. Zen schultz DO -[facility] Start: 07-17-2024 End: 07-18-[address] Marycarmen Rodriguez DO Work Phone: [facility] Work Phone: Start: 07-17-2024 End: 07-17-2024 Patient encounter procedure Marni PRAKASHC -Sleep Lab Work Phone: Start: 07-17-2024 End: 07-17-2024 ambulatory aMrycarmen Rodriguez Facility:[facility] Start: 07-07-2024 End: 07-07-[address] Marycarmen Rodriguez DO Work Phone: [facility] Work Phone: Start: 07-07-2024 End: 07-07-2024 Patient encounter procedure Marni POOL -Sleep Lab Work Phone: Start: 07-07-2024 End: 07-07-2024 ambulatory Marycarmen Rodriguez Facility:[facility] Start: 07-03-2024 End: 07-03-2024 Patient encounter procedure Marni Horn NP-C -[facility] Work Phone: Start: 07-03-2024 End: 07-03-2024 ambulatory [facility] Start: 06-30-2024 End: 06-30-[address] Marycarmen Rodriguez DO Work Phone: [facility] Work Phone: Start: 06-30-2024 End: 06-30-2024 Patient encounter procedure Ritesh Laurent Start: 06-30-2024 End: 06-30-2024 ambulatory [facility] Facility:[facility] Start: 04-17-2024 End: 04-17-2024 Patient encounter procedure Gustabo POOL -[facility] Work Phone: Start: 04-17-2024 End: 04-17-2024 ambulatory [facility] Start: 04-17-2024 End: 04-17-2024 ambulatory [facility] Facility:[facility] Start: 03-27-2024 End: 03-27-[address] Jose Hay MD -[facility] Work Phone: Start: 03-27-2024 End: 03-27-2024 ambulatory [facility] Start: 03-23-2024 End: 03-23-2024 Patient encounter procedure Ritesh Laurent Start: 03-23-2024 End: 03-23-2024 ambulatory [facility] Facility:[facility] Start: 03-20-2024 End: 03-20-[address] Jose Hay MD -[facility] Work Phone: Start: 03-20-2024 End: 03-20-2024 ambulatory [facility] Start: 05-07-2023 End: 05-07-2023 ambulatory [facility] Work Phone: Start: 05-07-2023 End: 05-07-2023 Patient encounter procedure [facility]-Ritesh Martini [facility] Start: 12-29-2022 Non-patient / Non-visit Dr. Danyelle Rodriguez Work Phone: [facility] Work Phone: Start: 12-28-2022 Non-patient / Non-visit Dr. Danyelle Rodriguez Work Phone: [facility] Start: 12-28-2022 End: 12-28-[address] Marycarmen Rodriguez Work Phone: [facility] Work Phone: Start: 12-28-2022 End: 12-28-[address] Marycarmen Rodriguez Work Phone: [facility]-Cardiovascul ar Services Work Phone: Start: 12-21-2022 End: 12-21-2022 Admission to same day surgery center Dr. Marycarmen Rodriguez Work Phone: [facility]-Shoe Cutter/Special Procedures Work Phone: Start: 12-21-2022 End: 12-21-[address] Marycarmen Rodriguez Work Phone: [facility] Work Phone: Start: 12-15-2022 End: 12-15-[address] Marycarmen Rodriguez Work Phone: [facility] Work Phone: Start: 12-15-2022 End: 12-15-[address] Marycarmen Rodriguez Work Phone: [facility]-Laboratory Work Phone: Start: 12-15-2022 End: 12-15-[address] Marycarmen Rodriguez Work Phone: [facility] Work Phone: Start: 10-16-2022 End: 10-16-2022 ambulatory Marycarmen Jennifer [facility] Work Phone: Start: 10-16-2022 End: 10-16-2022 Patient encounter procedure Marycarmen SWAIN [facility]-Pulmonary Services/Neurology Start: 10-13-2022 End: 10-13-2022 ambulatory Marycarmen Rodriguez [facility] Work Phone: Start: 10-13-2022 End: 10-13-2022 Patient encounter procedure Marycarmen SWAIN [facility] Start: 09-21-2022 Non-patient / Non-visit Marycarmen Ministeriodanyelle gifford [facility] Start: 09-20-2022 Non-patient / Non-visit Marycarmen Porter ирина [facility] Start: 09-19-2022 Non-patient / Non-visit Marycarmen Ministeriodanyelle gifford [facility]patient [facility]icians Start: 09-18-2022 Non-patient / Non-visit Marycarmen Porter gifford [facility] Start: 09-17-2022 End: 09-17-2022 Non-patient / Non-visit Marycarmen SWAIN [facility]patient [facility] Start: 09-17-2022 End: 09-21-2022 Evaluation and [facility] Start: 09-09-2022 Non-patient / Non-visit Marycarmen gifford [facility] Start: 09-01-2022 Non-patient / Non-visit Marycarmen gifford [facility] Start: 08-31-2022 End: 08-31-2022 Non-patient / Non-visit Marycarmen SWAIN [facility] Start: 08-31-2022 Non-patient / Non-visit Marycarmen gifford [facility] Start: 08-31-2022 End: 09-01-2022 Evaluation and management of [facility] Start: 08-31-2022 End: 09-01-2022 observation encounter Marycarmen Rodriguez OLS [facility] Work Phone: Start: 08-19-2022 End: 08-19-2022 ambulatory Marycarmen Rodriguez BRYNN [facility] Work Phone: Start: 08-19-2022 End: 08-19-2022 Patient encounter procedure Marycarmen SWAIN [facility] Start: 08-11-2022 Non-patient / Non-visit Marycarmen SWAIN [facility] Start: 06-11-2022 End: 06-11-[address] Marycarmen Rodriguez Work Phone: [facility] Work Phone: Start: 06-11-2022 End: 06-11-[address] Marycarmen Rodriguez Work Phone: [facility] Start: 04-21-2022 Non-patient / Non-visit Dr. Danyelle Rodriguez Work Phone: [facility] Start: 04-21-2022 End: 04-21-[address] Marycarmen Rodriguez Work Phone: [facility] Work Phone: Start: 04-21-2022 End: 04-21-[address] Marycarmen Rodriguez Work Phone: [facility]-Cardiovascul ar Services Start: 04-16-2022 End: 04-16-[address] Marycarmne Rodriguez Work Phone: [facility]-Pulmonary Medicine [facility] Start: 04-14-2022 End: 04-14-[address] Marycarmen Rodriguez Work Phone: [facility] Work Phone: Start: 04-14-2022 End: 04-14-[address] Marycarmen Rodriguez Work Phone: [facility]-Radiology, [facility] Start: 04-14-2022 End: 04-14-[address] Marycarmen Rodriguez Work Phone: [facility] Start: 03-27-2022 End: 03-27-[address] Marycarmen Rodriguez Work Phone: [facility] Start: 01-20-2022 End: 01-20-[address] [facility]armen Rodriguez [facility] Start: 01-07-2022 End: 01-07-[address] [facility]armen [facility] Start: 11-27-2021 Non-patient / Non-visit Dr. Danyelle Rodriguez Work Phone: [facility] Start: 11-26-2021 End: 11-26-[address] Marycarmen Rodriguez Work Phone: [facility]-Pulmonary Services/Neurology Start: 11-21-2021 End: 11-21-[address] Marycarmen Rodriguez Work Phone: [facility] Start: 11-16-2021 End: 11-16-2021 Emergency department patient visit Dr. Marycarmen Rodriguez Work Phone: [facility]-Emergency Department Start: 10-28-2021 End: 10-28-[address] [facility]carmen Rodriguez [facility] Start: 09-16-2021 End: 09-16-[address] Marycarmen Rodriguez Work Phone: [facility] Start: 09-16-2021 End: 09-16-[address] Marycarmen Rodriguez Work Phone: [facility] Start: 08-15-2021 Non-patient / Non-visit Dr. Danyelle Rodriguez Work Phone: [facility] Start: 08-15-2021 Non-patient / Non-visit Dr. Danyelle Rodriguez Work Phone: [facility] Start: 08-15-2021 End: 08-15-[address] Marycarmen Rodriguez Work Phone: [facility]-Cardiovascul ar Services Start: 08-01-2021 End: 08-01-[address] Marycarmen Rodriguez Work Phone: [facility] Start: 06-10-2021 End: 06-10-2021 Emergency department patient visit Dr. Marycarmen Rodriguez Work Phone: [facility]-Emergency Department Start: 05-19-2021 End: 05-19-2021 Emergency department patient visit Dr. Marycarmen Rodriguez Work Phone: [facility]-Emergency Department Start: 05-16-2021 End: 05-16-[address] Marycarmen Rodriguez Work Phone: [facility]-Laboratory, Specimen Start: 03-19-2021 ambulatory ELADIO INGRAM [facility] Start: 02-24-2021 End: 02-25-2021 ambulatory MARYCARMEN HARRISON [facility] Start: 02-20-2021 End: 02-24-2021 ambulatory [facility] Start: 01-10-2021 End: 01-10-2021 Orders Only Luma Foy RN 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) (Primary Dx) Start: 12-31-2020 Admission to [facility] Eladio Ingram MD Work Phone: [facility] Comment on above: Chest pain, unspecif ied type (Primary Dx) Start: 12-26-2020 End: 12-30-2020 Orders Only Justa Simental RN [facility] Start: 12-26-2020 End: 12-26-2020 Office outpatient visit 25 minutes Marycarmen Rodriguez DO Work Phone: [facility] Comment on above: Essential hypertensi on (Primary Dx); Atherosclerosis of [place] coronary artery with angina pectoris, 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); Coronary artery disease involving [place] coronary artery of [place] heart with angina pectoris (HCC); Mixed hyperlipidemia Start: 12-18-2020 ambulatory MIN [facility] Start: 10-15-2020 End: 10-16-2020 [facility] Start: 10-15-2020 End: 10-15-2020 Subsequent hospital visit by physician Eladio Ingram MD Work Phone: [facility] Comment on above: Arrived Start: 10-10-2020 ambulatory SAGAR ACUÑA [facility] Start: 10-09-2020 End: 10-09-2020 Orders Only Sagar Acuña CNP Work Phone: [facility] Comment on above: DEAN (dyspnea on exer tion) (Primary Dx) Start: 10-09-2020 End: 10-09-2020 Office outpatient new 45 minutes Sagar Acuña CNP Work Phone: [facility] Comment on above: DEAN (dyspnea on exer tion); Essential hypertension; Type 2 diabetes mellitus without complication, without long-term current use of insulin (HCC); MATTHEW (obstructive sleep apnea); Coronary artery disease involving [place] coronary artery of [place] heart without angina pectoris Start: 10-04-2020 End: 10-04-2020 Orders Only Deisi March RN [facility] Comment on above: Shortness of breath (Primary Dx) Start: 12-17-2016 Office/outpatient vi sit, est, level 4 Eladio Ingram Work Phone: [facility] Start: 11-28-2016 End: 11-28-2016 Patient encounter procedure [facility] Procedures Date Procedure Procedure Detail Performing Clinician Start: 01-01-2025 Plain chest X-ray Dr. Tricia Rodriguez DO Work Phone: Start: 01-01-2025 Blood count smear mc rscp w/mnl difrntl wbc count Dr. Marycarmen Rodriguez DO Work Phone: Start: 01-01-[address] Marycarmen Rodriguez DO Work Phone: Start: 01-01-2025 Mean corpuscular hemoglobin concentration determination Dr. Marycarmen Rodriguez DO Work Phone: Start: 01-01-2025 Nucleated red blood cell count procedure Dr. Marycarmen Rodriguez DO Work Phone: Start: 01-01-2025 Platelet mean volume determination Dr. Marycarmen Rodriguez DO Work Phone: Start: 12-28-2024 Blood count smear mc rscp w/mnl difrntl wbc count Dr. Marycarmen Rodriguez DO Work Phone: Start: 12-28-2024 Mean corpuscular hemoglobin concentration determination Dr. Mayrcarmen Rodriguez DO Work Phone: Start: 12-28-2024 Nucleated red blood cell count procedure Dr. Marycarmen Rodriguez DO Work Phone: Start: 12-28-2024 Platelet mean volume determination Dr. Marycarmen Rodriguez DO Work Phone: Start: 12-27-[address] Marycarmen Rodriguez DO Work Phone: Start: 12-27-2024 Urnls dip stick/tabl et reagent auto microscopy Dr. Marycarmen Rodriguez DO Work Phone: Start: 12-26-2024 Blood count smear mc rscp [...] DO Work Phone: Start: 12-25-[address] aMrycarmen adler DO Work Phone: Start: 12-24-2024 Measurement of occul t blood in stool specimen using immunoassay Dr. Marycarmen Rodriguez [employer] Work Phone: Start: 12-24-[address] Danyelle shafer Jennifer [employer] Work Phone: Start: 12-24-2024 Calculation of international normalized ratio Dr. Marycarmen Rodriguez [employer] Work Phone: Start: 12-21-2024 Blood count smear mc rscp w/mnl difrntl wbc count Dr. Marycarmen Rodriguez [employer] Work Phone: Start: 12-21-2024 Mean corpuscular hemoglobin [...] Work Phone: Start: 12-04-2024 Blood count smear rscp w/mnl difrntl wbc [...] Work Phone: Start: 12-02-2024 Blood count smear [facility] w/mnl difrntl wbc count Dr. Marycarmen Rodriguez [...] Work Phone: Comment on above: Test Ordered: [id number] Screen, Urine Negative ng/mL UI Reference Range: Azsdrb=231Yjxftkzpgwy test includes Amphetamine and Methamphetamine.Barbiturates Negative ng/mL UI Reference Range: Hjnbfm=814Ftbhxfnazmrvohi Negative ng/mL UI Reference Range: Fsfrmm=730Zfyueqq (Metab.), Urine Negative ng/mL UI Reference Range: Yaxbhl=817Uasdjwk Note: ng/mL UI See Final Results Reference Range: Oocpdb=752Webzxn test includes Codeine, Morphine, Hydromorphone, Hydrocodone.Opiates Positive [A ] UI Reference Range: Vulsij=931Ecyqyz test includes Codeine, Morphine, Hydromorphone, Hydrocodone.Codeine Negative UI Reference Range: Ncgsat=907Doobiswk Negative UI Reference Range: Keidnf=451Sacwqvuwtuqti Negative UI Reference Range: Irmwhl=369Wubrewvrxex Positive [A ] UI Reference Range: .Hydrocodone Conf, MS, UR 349 ng/mL UI Reference Range: Nheevd=9223-Pdqmhxwkpdgnlk, Urine Negative ng/mL UI Reference Range: Cutoff=10Oxycodone/Oxymorphone, Urine Negative ng/mL UI Reference Range: Rwzedc=117Erqd includes Oxycodone and OxymorphonePCP, Urine Negative ng/mL UI Reference Range: Cutoff=25Methadone Screen, Urine Negative ng/mL UI Reference Range: Zpdzwb=328Jncudxzehpfy, Urine Negative ng/mL UI Reference Range: Xbgnqg=447Ckggdhnd, Urine Negative ng/mL UI Reference Range: Cutoff=2.0Test includes Fentanyl and NorfentanylThis test was developed and its performance characteristicsdetermined by [employer]. It has not been cleared orapproved by the Food and Drug Administration.Tramadol Negative ng/mL UI Reference Range: Pwlmqt=705Cedfjbbfkdgsj, Urine Negative ng/mL UI Reference Range: Cutoff=10Creatinine, Urine 36.9 mg/dL UI Reference Range: 20.0-300.0pH, Urine 6.1 UI Reference Range: 4.5-8.9Performed at: [facility]Former[facility] [id number] [place], [place] [id number] Director: Erik Wallis PhD, Phone: [phone] at: [facility] [address] [id number] Director: Bharath Hawthorne PhD, Phone: [phone] Start: 10-18-[address] Marycarmen [...] Work Phone: Start: 09-20-2024 Blood count smear rscp w/mnl difrntl wbc [...] routine ecg w/le ast 12 lds w/i&r Sagar Acuña [employer] Work Phone: Start: 08-18-2018 History of percutane ous transluminal coronary angioplasty History of percutaneous transluminal coronary angioplasty Dr. 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 Alexandr Mcclain Start: 08-13-2017 History of placement of stent for coronary artery disease History of coronary artery stent placement Dr. 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 Procedure aborted. 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0952OIM-PLTF-Ty and Stent-Mid RCA x 2 Multi Link Mini Vision Rx Stent 4.0 x 28 mm 01/21/[address] JEFFREY SPIVEY MD Prostatectomy planned DR ROCIO SPIVEY MD Tonsillectomy DR JEFFREY SPIVEY MD Tx devices design & construction intermediate DR JEFFREY SPIVEY MD Plan of Treatment Date Care Activity Detail Author Start: 01-01-2025 [facility] Start: 01-01-2025 [facility] Start: 12-26-2024 Patient discharge [facility] Start: 12-25-2024 End: 12-26-2024 [facility] Start: 12-25-2024 Continuous positive airway pressure ventilation treatment [facility] Start: 12-24-2024 End: 12-25-2024 [facility] Start: 12-24-2024 Verification routine [facility] Start: 12-24-2024 Application of intermittent pneumatic compression device [facility] Start: 12-24-2024 Following clinical pathway protocol [facility] Start: 12-24-2024 Assessment of risk of venous thromboembolism [facility] Start: 12-24-2024 Care regimes management [facility] Start: 12-24-2024 Fall prevention [facility] Start: 12-24-2024 Inhalation therapy procedure [facility] Start: 12-24-2024 Insertion of catheter into peripheral vein [facility] Start: 12-24-2024 Introduction of urinary catheter [facility] Start: 12-24-2024 Measuring intake and output [facility] Start: 12-24-2024 Notification of physician [facility] Start: 12-24-2024 Oxygen therapy [facility] Start: 12-24-2024 Providing care according to standard [facility] Start: 12-24-2024 Provision of activity privileges [facility] Start: 12-24-2024 Referral to gastroenterology service [facility] Start: 12-24-2024 Referral to occupational therapist [facility] Start: 12-24-2024 Referral to service [facility] Start: 12-24-2024 Admission procedure [facility] Start: 12-24-2024 [facility] Start: 12-20-2024 End: 12-20-2024 [facility] Start: 12-20-2024 [facility] Start: 12-17-2024 Patient discharge [facility] Start: 12-16-2024 [facility] Start: 12-15-2024 Dual pressure spontaneous ventilation support [facility] Start: 12-15-2024 Assessment of risk of venous thromboembolism [facility] Start: 12-15-2024 Care regimes management [facility] Start: 12-15-2024 Continuous pulse oximetry [facility] Start: 12-15-2024 Incentive spirometry [facility] Start: 12-15-2024 Insertion of catheter into peripheral vein [facility] Start: 12-15-2024 Measuring intake and output [facility] Start: 12-15-2024 Notification of physician [facility] Start: 12-15-2024 Providing care according to standard [facility] Start: 12-15-2024 Provision of activity privileges [facility] Start: 12-15-2024 Referral to traffic manager [facility] Start: 12-15-2024 Referral to occupational therapist [facility] Start: 12-15-2024 Referral to service [facility] Start: 12-15-2024 Tobacco use cessation education [facility] Start: 12-15-2024 End: 12-15-2024 [facility] Start: 12-15-2024 Following clinical pathway protocol [facility] Start: 12-15-2024 Admission procedure [facility] Start: 12-15-2024 [facility] Start: 12-15-2024 Patient referral to dietitian [facility] Start: 12-08-2024 Patient discharge [facility] Start: 12-07-2024 Following clinical pathway protocol [facility] Start: 12-07-2024 Assessment of risk of venous thromboembolism [facility] Start: 12-07-2024 Care regimes management [facility] Start: 12-07-2024 Inhalation therapy procedure [facility] Start: 12-07-2024 Insertion of catheter into peripheral vein [facility] Start: 12-07-2024 Measuring intake and output [facility] Start: 12-07-2024 Notification of physician [facility] Start: 12-07-2024 Providing care according to standard [facility] Start: 12-07-2024 Provision of activity privileges [facility] Start: 12-07-2024 Referral to occupational therapist [facility] Start: 12-07-2024 Referral to service [facility] Start: 12-07-2024 End: 12-07-2024 [facility] Start: 12-07-2024 Pulmonary perfusion study [facility] Start: 12-07-2024 Verification routine [facility] Start: 12-07-2024 Admission procedure [facility] Start: 12-07-2024 Hospital admission, emergency, from emergency room, medical nature [facility] Start: 12-07-2024 [facility] Start: 12-07-2024 [facility] Start: 12-07-2024 Dual pressure spontaneous ventilation support [facility] Start: 12-06-2024 Patient discharge [facility] Start: 12-05-2024 Referral to occupational therapist [facility] Start: 12-05-2024 Referral to service [facility] Start: 12-03-2024 Electrocardiographic procedure [facility] Start: 12-03-2024 Referral to traffic manager [facility] Start: 12-03-2024 Verification routine [facility] Start: 12-03-2024 Admission procedure [facility] Start: 12-02-2024 End: 12-02-2024 [facility] Start: 12-02-2024 Following clinical pathway protocol [facility] Start: 12-02-2024 Notification of physician [facility] Start: 12-02-2024 Patient education [facility] Start: 12-02-2024 Provision of activity privileges [facility] Start: 12-02-2024 Pulse taking [facility] Start: 12-02-2024 Taking patient vital signs [facility] Start: 12-02-2024 Wound care [facility] Start: 12-02-2024 Oxygen therapy [facility] Start: 12-02-2024 Dual pressure spontaneous ventilation support [facility] Start: 12-02-2024 End: 12-02-2024 Hospital admission, emergency, from emergency room, medical nature [facility] Start: 12-02-2024 [facility] Start: 12-02-2024 Patient discharge [facility] Start: 12-02-2024 Electrocardiographic procedure [facility] Start: 12-02-2024 Magnetic resonance angiography of head without contrast [facility] Start: 12-02-2024 Magnetic resonance angiography of neck without contrast [facility] Start: 12-02-2024 MRA Head vessels WO [facility] Start: 12-02-2024 MRA Neck vessels [facility] Start: 12-01-2024 Vital signs measurements [facility] Start: 12-01-2024 Aspiration precautions [facility] Start: 12-01-2024 Cardiac monitoring [facility] Start: 12-01-2024 Catheterization of vein [facility] Start: 12-01-2024 Consultation [facility] Start: 12-01-2024 Continuous pulse oximetry [facility] Start: 12-01-2024 Elevation of head of bed [facility] Start: 12-01-2024 Exercises [facility] Start: 12-01-2024 Notification of physician [facility] Start: 12-01-2024 Oxygen therapy [facility] Start: 12-01-2024 Patient referral to dietitian [facility] Start: 12-01-2024 Referral to occupational therapist [facility] Start: 12-01-2024 Referral to service [facility] Start: 12-01-2024 Speech therapy assessment [facility] Start: 12-01-2024 Telemedicine consultation with patient [facility] Start: 12-01-2024 Tobacco use cessation education [facility] Start: 12-01-2024 End: 12-01-2024 [facility] Start: 12-01-2024 [facility] Start: 12-01-2024 [facility] Start: 12-01-2024 Electrocardiographic procedure [facility] Start: 12-01-2024 Continuous positive airway pressure ventilation treatment [facility] Start: 12-01-2024 US Heart [facility] Start: 12-01-2024 Complete blood count [facility] Start: 11-30-2024 End: 11-30-2024 [facility] Start: 11-30-2024 Following clinical pathway protocol [facility] Start: 11-30-2024 Ambulation without limitation [facility] Start: 11-30-2024 Assessment of risk of venous thromboembolism [facility] Start: 11-30-2024 Insertion of catheter into peripheral vein [facility] Start: 11-30-2024 Measuring intake and output [facility] Start: 11-30-2024 Providing care according to standard [facility] Start: 11-30-2024 Referral to service [facility] Start: 11-30-2024 Care regimes management [facility] Start: 11-30-2024 Complete blood count [facility] Start: 11-30-2024 Elevation of head of bed [facility] Start: 11-30-2024 Admission procedure [facility] Start: 11-30-2024 Cardiac monitoring [facility] Start: 11-30-2024 Cardiac rehabilitation - phase 1 [facility] Start: 11-30-2024 Cardiac rehabilitation - phase 2 [facility] Start: 11-30-2024 Dietary regime [facility] Start: 11-30-2024 Log roll [facility] Start: 11-30-2024 End: 11-30-2024 Notification of physician [facility] Start: 11-30-2024 Oxygen therapy [facility] Start: 11-30-2024 Patient discharge [facility] Start: 11-30-2024 Provision of activity privileges [facility] Start: 11-30-2024 Pulse taking [facility] Start: 11-30-2024 Hospital admission, emergency, from emergency room, medical nature [facility] Start: 11-30-2024 Electrocardiographic procedure [facility] Start: 11-30-2024 End: 11-30-2024 [facility] Start: 11-30-2024 Partial thromboplastin time, activated [facility] Start: 11-30-2024 Prothrombin time [facility] Start: 11-28-2024 [facility] Start: 11-28-2024 Patient discharge [facility] Start: 11-28-2024 Complete blood count [facility] Start: 11-27-2024 Following clinical pathway protocol [facility] Start: 11-27-2024 Elevation of head of bed [facility] Start: 11-27-2024 Dietary regime [facility] Start: 11-27-2024 Log roll [facility] Start: 11-27-2024 Provision of activity privileges [facility] Start: 11-27-2024 End: 11-27-2024 [facility] Start: 11-27-2024 Admission procedure [facility] Start: 11-27-2024 Cardiac monitoring [facility] Start: 11-27-2024 Cardiac rehabilitation - phase 1 [facility] Start: 11-27-2024 Cardiac rehabilitation - phase 2 [facility] Start: 11-27-2024 Notification of physician [facility] Start: 11-27-2024 Oxygen therapy [facility] Start: 11-27-2024 Pulse taking [facility] Start: 11-27-2024 Continuous positive airway pressure ventilation treatment [facility] Start: 11-27-2024 Inhalation therapy procedure [facility] Start: 11-26-2024 [facility] Start: 11-26-2024 [facility] Start: 11-22-2024 Evaluation of diagnostic study results [facility] Start: 10-25-2024 Evaluation of diagnostic study results [facility] Start: 07-25-2024 Walking distance 6 minutes [facility] Start: 07-17-2024 Measurement of respiratory function [facility] Start: 12-21-2022 Patient discharge [facility] Start: 10-05-2022 Measurement of respiratory function [facility] Start: 09-21-2022 Patient discharge [facility] Start: 09-20-2022 Telepractice consultation [facility] Start: 09-18-2022 Following clinical pathway protocol [facility] Start: 09-17-2022 Aspiration precautions [facility] Start: 09-17-2022 Assessment of risk of venous thromboembolism [facility] Start: 09-17-2022 Cardiac monitoring [facility] Start: 09-17-2022 Care regimes management [facility] Start: 09-17-2022 Catheterization of vein [facility] Start: 09-17-2022 Continuous positive airway pressure ventilation treatment [facility] Start: 09-17-2022 Continuous pulse oximetry [facility] Start: 09-17-2022 Elevation of head of bed [facility] Start: 09-17-2022 Exercises [facility] Start: 09-17-2022 Fall prevention [facility] Start: 09-17-2022 Implementation of planned interventions [facility] Start: 09-17-2022 Inhalation therapy procedure [facility] Start: 09-17-2022 Insertion of catheter into peripheral vein [facility] Start: 09-17-2022 Introduction of urinary catheter [facility] Start: 09-17-2022 Measuring intake and output [facility] Start: 09-17-2022 Notification of physician [facility] Start: 09-17-2022 Oxygen therapy [facility] Start: 09-17-2022 End: 09-18-2022 Patient referral to dietitian [facility] Start: 09-17-2022 Providing care according to standard [facility] Start: 09-17-2022 Provision of activity privileges [facility] Start: 09-17-2022 Referral to occupational therapist [facility] Start: 09-17-2022 Referral to service [facility] Start: 09-17-2022 Speech therapy assessment [facility] Start: 09-17-2022 Tobacco use cessation education [facility] Start: 09-17-2022 [facility] Start: 09-17-2022 Admission procedure [facility] Start: 09-01-2022 Patient discharge [facility] Start: 08-31-2022 Patient referral [facility] Work Phone: Start: 08-31-2022 Following clinical pathway protocol [facility] Start: 08-31-2022 Pulse taking [facility] Start: 08-31-2022 Cardiac monitoring [facility] Start: 08-31-2022 Cardiac rehabilitation - phase 1 [facility] Start: 08-31-2022 Cardiac rehabilitation - phase 2 [facility] Start: 08-31-2022 Notification of physician [facility] Start: 08-31-2022 Oxygen therapy [facility] Start: 08-31-2022 Patient discharge [facility] Start: 08-31-2022 Taking patient vital signs [facility] Start: 08-31-2022 Vascular disease risk assessment [facility] Start: 08-31-2022 Vital signs measurements [facility] Start: 08-31-2022 End: 08-31-2022 [facility] Start: 08-31-2022 Admission procedure [facility] Start: 11-16-2021 [facility] Work Phone: Start: 01-10-2021 End: 01-10-2021 Admission to same day surgery center 01/10/2021 Surgery Cardiology Eladio Ingram MD [address] [facility] [address] [place] [address] Left Heart Cath Possible PTCA/Stent [facility] [employer] Comment on above: Left Heart Cath Possible PTCA/Stent Start: 01-10-2021 Subsequent hospital visit by physician 01/10/2021 Hospital Encounter Eladio Ingram MD [address] [facility] [address] [place] [address] [facility] Proced[facility] Care Unit Start: 01-01-2021 Influenza vaccination [facility] Start: 12-26-2020 End: 12-26-2020 Patient encounter procedure 12/26/2020 Office Visit Cardiology Marycarmen Rodriguez, [address] [place] [address] [phone] Eladio Ingram MD [address] [facility] [address] [place] [address] [phone] [facility] Office Start: 10-15-2020 End: 10-15-2020 Patient encounter procedure 10/15/2020 Appointment Cardiology Eladio Ingram MD [address] [facility] [address] [place] [address] [phone] [facility] Start: 10-09-2020 End: 10-09-2020 Patient encounter procedure 10/09/2020 Office Visit Cardiology Sagar Acuña, CERAMICS ARTIST [address] [place] [address] [phone] [facility] Start: 11-05-2017 Prostate specific antigen measurement PSA Level [facility] Start: 06-01-2017 HEMOGLOBIN A1C HEMOGLOBIN A1C [facility] Work Phone: Start: 06-01-2017 Hemoglobin A1c measurement A1C [facility] Start: 06-01-2017 Hemoglobin A1c/Hemoglobin.total mass fraction (Bld) HEMOGLOBIN A1C [facility] Work Phone: Start: 01-01-2017 SEQUENTIAL INFLUENZA VACCINE (#1) SEQUENTIAL INFLUENZA VACCINE (#1) [facility] Work Phone: Start: 12-17-2016 Ambulatory 12/17/2016 Office Visit Cardiology Eladio Ingram MD [address] [address] [phone] [facility] Start: 2010 ABDOMINAL AORTIC ULTRASOUND ABDOMINAL AORTIC ULTRASOUND [facility] Work Phone: Start: 2010 Fall risk assessment Falls Risk Assessment [facility] Start: 2010 PNEUMOCOCCAL VACCINE AGE 65+ (1 of 2 - PCV13) PNEUMOCOCCAL VACCINE AGE 65+ (1 of 2 - PCV13) [facility] Work Phone: Start: 2005 Zoster vacc, sc ZOSTER VACCINE [facility] Work Phone: Start: 08-01-1995 Administration of herpes zoster vaccine Zoster Vaccines (1 of 2) [facility] Start: 08-01-1995 Screening for malignant neoplasm of colon [facility] Start: 08-01-1963 Hepatitis C screening Hepatitis C Screening [facility] Start: 1957 COVID-19 Vaccine (1) COVID-19 Vaccine (1) [facility] Start: 08-01-1955 3 comp foot exam completed FOOT EXAM [facility] Work Phone: Start: 08-01-1955 Albumin Test strip detection limit <= 20 mg/L mass conc (U) URINE MICROALBUMIN [facility] Work Phone: Start: 08-01-1955 Diabetic foot examination Foot Exam [facility] Start: 08-01-1955 Microalbumin measurement, urine, quantitative Urine Microalbumin [facility] Start: 08-01-1955 Ophthalmic examination and evaluation OPHTHALMOLOGY EXAM [facility] Start: 08-01-1955 FOOT EXAM FOOT EXAM [facility] Work Phone: Start: 08-01-1955 OPHTHALMOLOGY EXAM OPHTHALMOLOGY EXAM [facility] Work Phone: Start: 08-01-1955 URINE MICROALBUMIN URINE MICROALBUMIN [facility] Work Phone: Start: 08-01-1951 Pneumococcal Vaccine: Age 65+ (1 of 2 - PPSV23) Pneumococcal Vaccine: Age 65+ (1 of 2 - PPSV23) [facility] Start: 1948 History and physical examination, annual for health maintenance Wellness Visit [facility] Start: 1945 Colonoscopy COLONOSCOPY [facility] Work Phone: Start: 1945 Tetanus vaccination Tetanus: Every 10yrs [facility] Start: 1945 Colonoscopy COLONOSCOPY [facility] Work Phone: Start: 1945 End: 1945 HEPATITIS C SCREENING HEPATITIS C SCREENING [facility] Work Phone: Start: 1945 End: 1945 TETANUS EVERY 10 YR TETANUS EVERY 10 YR [facility] Work Phone: Alanine aminotransfe rase [Enzymatic activity/volume] in Serum or Plasma [facility] Alanine aminotransfe rase [Enzymatic activity/volume] in Serum or Plasma [facility] Albumin [Mass/volume ] in Serum or Plasma [facility] Albumin [Mass/volume ] in Serum or Plasma [facility] Alkaline phosphatase [Enzymatic activity/volume] in Serum or Plasma [facility] Alkaline phosphatase [Enzymatic activity/volume] in Serum or Plasma [facility] Anion gap in Serum or Plasma [facility] Anion gap in Serum or Plasma [facility] End: 12-26-2021 Basic metabolic 1999 panel - Serum or Plasma Basic metabolic panel Lab Routine Atherosclerosis of [place] coronary artery with angina pectoris, 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) Essential hypertension 1 Occurrences starting 12/26/2020 until 12/26/2021 [facility] Comment on above: 1 Occurrences starting 12/26/2020 until 12/26/2021 Basic metabolic 1999 panel - Serum or Plasma Basic metabolic panel Lab Routine Atherosclerosis of [place] coronary artery with angina pectoris, 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) Essential hypertension 12/26/2020 11:28 AM EDT [facility] Basic metabolic 2007 panel with ionized calcium - Serum or Plasma [facility] Basic metabolic 2007 panel with ionized calcium - Serum or Plasma [facility] Basic metabolic 2008 panel with ionized calcium - Serum or Plasma [facility] End: 12-17-2017 Basic metabolic panel [AGGREGATE] Basic metabolic panel Routine MATTHEW (obstructive sleep apnea) Coronary artery disease involving [place] coronary artery of [place] heart without angina pectoris 1 Occurrences starting 12/17/2016 until 12/17/2017 [employer] Work Phone: Bilirubin, total measurement [facility] Bilirubin, total measurement [facility] Blood chemistry [facility] BUN/Creatinine ratio [facility] BUN/Creatinine ratio [facility] Calcium [Mass/volume ] in Serum or Plasma [facility] Calcium [Mass/volume ] in Serum or Plasma [facility] Carbon dioxide, tota l [Moles/volume] in Central venous blood [facility] Carbon dioxide, tota l [Moles/volume] in Central venous blood [facility] Catheterization of [facility] Catheterization of [facility] Catheterization of l [facility] CBC W Auto Different ial panel - Blood [facility] CBC W Auto Different ial panel - Blood [facility] End: 12-26-2021 Complete blood count with white cell differential, manual CBC and differential Lab Routine Atherosclerosis of [place] coronary artery with angina pectoris, 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) Essential hypertension 1 Occurrences starting 12/26/2020 until 12/26/2021 [employer] Work Phone: Comment on above: 1 Occurrences starting 12/26/2020 until 12/26/2021 Complete blood count with white cell differential, manual CBC and differential Lab Routine Atherosclerosis of [place] coronary artery with angina pectoris, 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) Essential hypertension 12/26/2020 11:28 AM EDT [facility] Creatinine [Mass/vol ume] in Serum or Plasma [facility] Creatinine [Mass/vol ume] in Serum or Plasma [facility] End: 01-10-2022 CT Angiogram Aorta Chest Abdomen Pelvis CT Angiogram Aorta Chest Abdomen Pelvis Imaging Routine Coronary artery disease involving [place] coronary artery of [place] heart with angina pectoris (HCC) 1 Occurrences starting 01/10/2021 until 01/10/2022 [employer] Work Phone: Comment on above: 1 Occurrences starting 01/10/2021 until 01/10/2022 End: 12-04-2021 Echocardiography Echocardiogram complete Echocardiography Routine Shortness of breath 1 Occurrences starting 10/04/2020 until 12/04/2021 [facility] Comment on above: 1 Occurrences starting 10/04/2020 until 12/04/2021 Erythrocyte mean cor puscular volume determination [facility] Erythrocyte mean cor puscular volume determination [facility] Erythrocyte mean cor puscular volume determination [facility] Glucose [Mass/volume ] in Serum or Plasma [facility] Glucose [Mass/volume ] in Serum or Plasma [facility] Hematocrit [Volume F raction] of Blood [facility] Hematocrit [Volume F raction] of Blood [facility] Hematocrit [Volume F raction] of Blood [facility] Hemoglobin [Mass/vol ume] in Blood [facility] Hemoglobin [Mass/vol ume] in Blood [facility] Hemoglobin [Mass/vol ume] in Blood [facility] INR in Blood by Coag ulation assay [facility] LEFT HEART CATH POSS IBLE PTCA/STENT LEFT HEART CATH POSSIBLE PTCA/STENT [facility] Leukocytes [#/volume ] in Blood [facility] Leukocytes [#/volume ] in Blood [facility] Leukocytes [#/volume ] in Blood [facility] End: 12-17-2017 Magnesium Magnesium Routine MATTHEW (obstructive sleep apnea) Coronary artery disease involving [place] coronary artery of [place] heart without angina pectoris 1 Occurrences starting 12/17/2016 until 12/17/2017 [facility] Work Phone: Mean corpuscular hem oglobin concentration determination [facility] Mean corpuscular hem oglobin concentration determination [facility] Mean corpuscular hem oglobin concentration determination [facility] Mean corpuscular hem oglobin determination [facility] Mean corpuscular hem oglobin determination [facility] Mean corpuscular hem oglobin determination [facility] Measurement of renal function [facility] Measurement of renal function [facility] Measurement of respi ratory function [facility] Work Phone: Natriuretic peptide. B prohormone N-Terminal [Mass/volume] in Serum or Plasma [facility] Natriuretic peptide. B prohormone N-Terminal [Mass/volume] in Serum or Plasma [facility] NM Heart Views W str ess and W radionuclide IV [facility] Patient Education [facility] Work Phone: Patient referral [facility] Work Phone: Platelets [#/volume] in Blood [facility] Platelets [#/volume] in Blood [facility] Platelets [#/volume] in Blood [facility] Potassium measurement [facility] Potassium measurement [facility] Red blood cell count [facility] Red blood cell count [facility] Red blood cell count [facility] Red cell distributio n width determination [facility] Red cell distributio n width determination [facility] Red cell distributio n width determination [facility] Serum chloride measurement [facility] Serum chloride measurement [facility] Sodium measurement [facility] Sodium measurement [facility] Total protein measurement [facility] Total protein measurement [facility] Troponin T.cardiac [Mass/volume] in Serum or Plasma by High sensitivity method [facility] Troponin T.cardiac [Mass/volume] in Serum or Plasma by High sensitivity method [facility] Troponin T.cardiac [Mass/volume] in Serum or Plasma by High sensitivity method [facility] Troponin T.cardiac [Mass/volume] in Serum or Plasma by High sensitivity method [facility] Troponin T.cardiac [Mass/volume] in Serum or Plasma by High sensitivity method [facility] Troponin T.cardiac [Mass/volume] in Serum or Plasma by High sensitivity method [facility] Urea nitrogen [Mass/ volume] in Serum or Plasma [facility] Urea nitrogen [Mass/ volume] in Serum or Plasma [facility] XR Chest PA and Lateral [facility] Immunizations Immunization Date Immunization Notes Care Provider Zain kwon 11-26-2024 tetanus toxoid, redu terry diphtheria toxoid, and acellular pertussis vaccine, adsorbed Dr. Marycarmen Rodriguez DO Work Phone: [facility] 02-19-2023 influenza, injectabl e, quadrivalent, preservative free Dr. Marycarmen Rodriguez DO Work Phone: [facility] 01-27-2022 influenza, injectabl e, quadrivalent, preservative free Dr. Marycarmen Rodriguez DO Work Phone: [facility] 09-04-2021 Covid (Pfizer) Dr. Marycarmen hough DO Work Phone: [facility] 02-24-2021 Covid (Pfizer) Dr. Marycarmen hough DO Work Phone: [facility] 06-27-2020 Covid (Pfizer) Dr. Marycarmen hough DO Work Phone: [facility] 05-31-2020 Covid (Pfizer) Dr. Marycarmen hough DO Work Phone: [facility] 02-20-[address] Marycarmen Rodriguez Work Phone: [facility] 02-14-[address] Marycarmen Rodriguez Work Phone: [facility] 01-31-[address] Marycarmen Rodriguez Work Phone: [facility] 04-12-2017 influenza, high dose seasonal, preservative-free Dr. Marycarmen Rodriguez DO Work Phone: [facility] 11-29-2016 HEMOGLOBIN A1C [facility] Work Phone: 08-16-2014 pneumococcal polysaccharide vaccine, [address] Marycarmen Rodriguez DO Work Phone: [facility] 08-05-2005 hepatitis A vaccine, pediatric/adolescent dosage, [address] Marycarmen Rodriguez DO Work Phone: [facility] 01-14-2005 hepatitis A vaccine, pediatric/adolescent dosage, [address] Marycarmen Rodriguez DO Work Phone: [facility] 01-14-2005 TD(adult) unspecifie d formulation Dr. Marycarmen Rodriguez DO Work Phone: [facility] Payers Date Payer Category Payer Medicare [id number] 2025 Private Health Insurance [id number] 2024 Self-pay [id number] 2019 Unknown [id number] 2019 Unknown [id number] 2012 Unknown [id number] 2.1 6.840.1.395376.3.249.13 2010 Medicare [id number] 2.16 .840.1.189058.3.249.13 2010 Medicare [id number] 2010 Medicare [id number] 2010 Medicare [id number] 1945 Unknown [id number] 2.. 840.1.702012.3.579.2.594 1945 Unknown [id number] 2.16. 840.1.880778.3.579.2.902 1945 Unknown [id number] 2.16. 840.1.464127.3.579.2.903 1945 Unknown [id number] 2.16 840.1.460977.3.579.2.903 1945 Unknown [id number] 2.16. 840.1.061608.3.579.2.903 1945 Unknown [id number] 2.16. 840.1.639244.3.579.2.903 1945 Unknown [id number] 2.16. 840.1.949624.3.579.2. 1945 Unknown [id number] 2.16. 840.1.171629.3.579.2.903 1945 Unknown [id number] 2.16. 840.1.182879.3.579.2. 1945 Unknown [id number] 2.16. 840.1.624951.3.579.2.903 1945 Unknown [id number] 2.16. 840.1.283141.3.579.2.627 Unknown [id number] 2.16.8 40.1.859585.3.579.2.462 Unknown [id number] 2.16.8 40.1.840254.3.579.2.462 Unknown [id number] 2.16.8 40.1.466967.3.579.2.462 Unknown [id number] 2.16.8 40.1.941047.3.579.2.462 Unknown [id number] 2.16.8 40.1.166445.3.579.2.462 Unknown [id number] 2.16.8 40.1.019289.3.579.2.462 Unknown [id number] 2.16.8 40.1.774932.3.579.2.462 Unknown [id number] 2.16.8 40.1.324097.3.579.2.462 Unknown [id number] 2.16.8 40.1.622180.3.579.2.462 Unknown [id number] 2.16.8 40.1.468510.3.579.2.462 Unknown [id number] 2.16.8 40.1.016688.3.579.2.462 Unknown [id number] 2.16.8 40.1.023210.3.579.2.462 Unknown [id number] 2.16.8 40.1.544857.3.579.2.462 Unknown [id number] 2.16.8 40.1.724834.3.579.2.462 Unknown [id number] 2.16.8 40.1.461536.3.579.2.462 Unknown [id number] 2.16.8 40.1.814905.3.579.2.462 Unknown [id number] 2.16.8 40.1.144767.3.579.2.462 Unknown [id number] 2.16.8 40.1.935165.3.579.2.462 Unknown [id number] 2.16.8 40.1.341745.3.579.2.462 Unknown [id number] 2.16.8 40.1.757006.3.579.2.462 Unknown [id number] 2.16.8 40.1.527016.3.579.2.462 Unknown [id number] 2.16.8 40.1.955584.3.579.2.462 Unknown [id number] 2.16.8 40.1.866037.3.579.2.462 Unknown [id number] 2.16.8 40.1.001157.3.579.2.462 Unknown [id number] 2.16.8 40.1.110331.3.579.2.462 Unknown [id number] 2.16.8 40.1.822121.3.579.2.462 Unknown [id number] 2.16.8 40.1.418654.3.579.2.462 Unknown [id number] 2.16.8 40.1.227421.3.579.2.462 Unknown [id number] 2.16.8 40.1.070253.3.579.2.462 Unknown [id number] 2.16.8 40.1.322607.3.579.2.462 Unknown [id number] 2.16.8 40.1.392014.3.579.2.462 Unknown [id number] 2.16.8 40.1.874682.3.579.2.462 Unknown [id number] 2.16.8 40.1.259061.3.579.2.462 Unknown [id number] 2.16.8 40.1.371325.3.579.2.462 Unknown [id number] 2.16.8 40.1.957685.3.579.2.462 Unknown [id number] 2.16.8 40.1.619728.3.579.2.462 Unknown [id number] 2.16.8 40.1.259476.3.579.2.462 Unknown [id number] 2.16.8 40.1.576777.3.579.2.462 Unknown [id number] 2.16.8 40.1.262114.3.579.2.462 Unknown [id number] 2.16.8 40.1.668489.3.579.2.462 Unknown [id number] 2.16.8 40.1.246266.3.579.2.462 Unknown [id number] 2.16.8 40.1.144666.3.579.2.462 Unknown [id number] 2.16.8 40.1.317642.3.579.2.462 Unknown [id number] 2.16.8 40.1.801947.3.579.2.462 Unknown [id number] 2.16.8 40.1.988678.3.579.2.462 Unknown [id number] 2.16.8 40.1.502566.3.579.2.462 Unknown [id number] 2.16.8 40.1.552426.3.579.2.462 Unknown [id number] 2.16.8 40.1.917603.3.579.2.462 Unknown [id number] 2.16.8 40.1.462420.3.579.2.462 Unknown [id number] 2.16.8 40.1.504347.3.579.2.462 Unknown [id number] 2.16.8 40.1.236680.3.579.2.462 Unknown [id number] 2.16.8 40.1.349614.3.579.2.462 Unknown [id number] 2.16.8 40.1.053985.3.579.2.462 Unknown [id number] 2.16.8 40.1.682309.3.579.2.462 Unknown [id number] 2.16.8 40.1.151190.3.579.2.462 Unknown [id number] 2.16.8 40.1.349937.3.579.2.462 Unknown [id number] 2.16.8 40.1.419042.3.579.2.462 Unknown [id number] 2.16.8 40.1.942706.3.579.2.462 Unknown [id number] 2.16.8 40.1.511533.3.579.2.462 Unknown [id number] 2.16.8 40.1.791630.3.579.2.462 Unknown [id number] 2.16.8 40.1.794029.3.579.2.462 Unknown [id number] 2.16.8 40.1.982405.3.579.2.462 Unknown [id number] 2.16.8 40.1.957369.3.579.2.462 Unknown [id number] 2.16.8 40.1.596115.3.579.2.462 Unknown [id number] 2.16.8 40.1.576322.3.579.2.462 Unknown [id number] 2.16.8 40.1.301050.3.579.2.462 Unknown [id number] 2.16.8 40.1.213997.3.579.2.462 Unknown [id number] 2.16.8 40.1.801771.3.579.2.462 Unknown [id number] 2.16.8 40.1.636642.3.579.2.462 Unknown [id number] 2.16.8 40.1.984071.3.579.2.462 Unknown [id number] 2.16.8 40.1.329544.3.579.2.462 Unknown [id number] 2.16.8 40.1.471933.3.579.2.462 Unknown [id number] 2.16.8 40.1.940607.3.579.2.462 Unknown [id number] 2.16.8 40.1.995305.3.579.2.462 Unknown [id number] 2.16.8 40.1.970378.3.579.2.462 Unknown [id number] 2.16.8 40.1.824867.3.579.2.462 Unknown [id number] 2.16.8 40.1.648145.3.579.2.462 Unknown [id number] 2.16.8 40.1.679781.3.579.2.462 Unknown [id number] 2.16.8 40.1.725267.3.579.2.462 Unknown [id number] 2.16.8 40.1.050905.3.579.2.462 Unknown [id number] 2.16.8 40.1.393144.3.579.2.462 Unknown [id number] 2.16.8 40.1.906617.3.579.2.462 Unknown [id number] 2.16.8 40.1.173654.3.579.2.462 Unknown [id number] 2.16.8 40.1.743142.3.579.2.462 Unknown [id number] 2.16.8 40.1.266363.3.579.2.462 Unknown [id number] 2.16.8 40.1.790759.3.579.2.462 Unknown [id number] 2.16.8 40.1.778926.3.579.2.462 Unknown [id number] 2.16.8 40.1.234836.3.579.2.462 Social History Date Type Detail Facility Start: 12-17-2016 End: 01-03-2025 Tobacco smoking status NHIS Former smoker [facility] Start: 12-17-2016 End: 10-09-2020 Cigarettes smoked current (pack per day) - Reported [facility] Work Phone: Start: 1945 Sex Assigned At Not on file [facility] Work Phone: Start: 12-17-2016 End: 10-09-2020 Tobacco use and exposure Never used [facility] Start: 12-17-2016 End: 01-10-2021 Alcohol intake Current non-drinker of alcohol (finding) [facility] Start: 03-10-2016 Tobacco Comment quit 25+ yrs ago [facility] Exposure to SARS-CoV -2 (event) Not sure [facility] Start: 08-01-2021 End: 12-21-2022 Tobacco smoking status NHIS Unknown if ever smoked [facility] Start: 01-12-2020 None [facility] Start: 01-12-2020 Spouse/ Signif icant Other [facility] Start: 11-18-2020 Non-smoker [facility] Start: 1945 Sex Assigned At Male [facility] Start: 07-13-2024 End: 01-03-2025 Sex Male (finding) [facility] Sexual Orientation [facility] Medical Equipment Procedure Code Equipment Code Equipment Origin al Text Equipment Identifier Dates Colonoscopy FDA Start: 12-25-2024 Colonoscopy FDA Start: 12-25-2024 Stent 3.50 X 23 Xience [employer]pine Xpedition Rx - [id number] FDA Start: 01-04-2015 ()[id number] [id number] FDA Start: 08-31-2022 ([id number] [id number] FDA Start: 08-31-2022 ([id number] [id number] FDA Start: 11-27-2024 ([id number] [id number] FDA Start: 11-30-2024 ([id number] [id number] FDA Start: 11-30-2024 Goals Date Patient Goal Desired Activity /State Functional Status Date Assessment Result Facility 12-26-2024 Functional status Ambulates [facility] Work Phone: 12-17-2024 Functional status Ambulates [facility] Work Phone: 12-08-2024 Functional status Bedrest [facility] Work Phone: 12-06-2024 Functional status Ambulates [facility] Work Phone: 12-05-2024 Functional status Ambulates [facility] Work Phone: 12-04-2024 Functional status Poor [facility] Work Phone: 12-02-2024 Functional status Bedrest [facility] Work Phone: 11-28-2024 Functional status Ambulates [facility] Work Phone: 11-27-2024 Functional status Dangle Feet [facility] Work Phone: 09-21-2022 Functional status Chair [facility] Work Phone: 09-20-2022 Functional status Assistive Ning lauro Rolling Walker [facility] Work Phone: 09-01-2022 Functional status Activity Ability Indepe ndent [facility] Work Phone: 08-31-2022 Functional status Ambulates [facility] Work Phone: Mental Status Date Assessment Result Facility 01-01-2025 Cognitive function Voice/Name [facility] Work Phone: 12-26-2024 Cognitive function Voice/Name [facility] Work Phone: 12-17-2024 Cognitive function Voice/Name [facility] Work Phone: 12-08-2024 Cognitive function [facility]Name [facility] Work Phone: 12-07-2024 Cognitive function Voice/Name [facility] Work Phone: 12-06-2024 Cognitive function Voice/Name [facility] Work Phone: 12-05-2024 Cognitive function Voice/Name [facility] Work Phone: 12-02-2024 Cognitive function Voice/Name [facility] Work Phone: 12-02-2024 Cognitive function Voice/Name [facility] Work Phone: 11-28-2024 Cognitive function Voice/Name [facility] Work Phone: 11-27-2024 Cognitive function Voice/Name [facility] Work Phone: 09-21-2022 Cognitive function Voice/Name [facility] Work Phone: 09-01-2022 Cognitive function Appropriate;Cooperativ e [facility] Work Phone: 11-16-2021 Cognitive function Voice/Name [facility] Work Phone: 06-10-2021 Cognitive function Level Of Cons ciousness Awake;Alert;Appropriate [facility] Work Phone: Clinical Notes 06-25-2020 to 01-10-2025 Note Date & Type Note Facility 01-10-2025 Hospital Discharg e instructions Patient Education 01/10/2025 13:54:08 3- Heart Cath/PCI radial (01/2018)(CUSTOM) HEART CATHETERIZATION/PCI (radial) Discharge Instructions DIET Drink plenty of fluids for the next 48 hours to help your kidneys flush the heart cath dye out of your system ACTIVITY For the next 48 hours: Do not deep bend the wrist Do not lift, push, or pull anything over 5 pounds Do not use the hand/arm to support your weight when rising from a chair or bed Do not drive For the next 7 days: Do not submerse your procedure site in water Do not swim, wash dishes, or take tub baths You may write, eat, type, and shower WOUND CARE Keep a Band-Aid on your procedure site for the next 3-4 days Change the Band-Aid daily or if it gets wet/soiled AFTER YOU GO HOME, CALL YOUR DOCTOR FOR: Any increase in bruising or tenderness from the procedure site Any redness, pus, or other signs of infection at the site A temperature above 100.5 Severe pain at the site DIAL 911 AND RETURN TO THE HOSPITAL FOR: Any bleeding from the procedure site. The site may be bruised or tender, but it should not be bleeding at any time. If your site begins to bleed, hold firm pressure on it and dial 911 to return to the hospital Any increase in swelling at the procedure site. An increase in swelling could mean the area is bleeding under the skin. Hold firm pressure to the site and dial 911 to return to the hospital Document Released: 04/19/2006 Document Revised: 04/05/2013 Document Reviewed: 04/20/2014 ExitCare Patient Information 2015 [employer]. This information is not intended to replace advice given to you by your health care provider. Make sure you discuss any questions you have with your health care provider. Follow Up Care 01/03/2025 12:50:19 With:JEFFREY SPIVEY MD Address: [address] [facility] [place] [address]- [phone] When:Within 2 Week(s) With:Cardiac Rehab- [facility] Address: [address] [place] [address]- When: Unknown Comments:Cardiac rehabilitation is a vital part of your recovery and long-term heart health following your hospital stay. It is a medically supervised exercise and education program designed to improve your physical fitness, manage heart-related risk factors, and support emotional well-being. A cardiac rehab steam and gas turbines assembler will contact you soon to schedule your follow-up appointment. If you have any questions please call [phone]. [facility] 01-10-2025 Note Discharge Instructions Thank you for allowing [place] to assist you with your healthcare needs. The following is important discharge information regarding your hospital visit. What to do next Follow Up Appointments Follow Up with JEFFREY SPIVEY MD When:In 2 weeks Where:[address] [facility] [place] [address] [phone] Follow Up with Cardiac Rehab- [facility] Where:[address] [place] [address]- Additional Information: Cardiac rehabilitation is a vital part of your recovery and long-term heart health following your hospital stay. It is a medically supervised exercise and education program designed to improve your physical fitness, manage heart-related risk factors, and support emotional well-being. A cardiac rehab steam and gas turbines assembler will contact you soon to schedule your follow-up appointment. If you have any questions please call [phone]. The Following Activity and Diet Have Been Ordered for You Transfer of Care Activity - Ordered -- Activity As Tolerated, 01/10/25 13:04:00 EDT Transfer of Care Diet - Ordered -- Type of Diet: Cardiac, 01/10/25 13:04:00 EDT The Following Equipment Has Been Ordered for You No qualifying data available. The Following Treatments Have Been Ordered for You Discharge Labs No qualifying data available. Discharge Radiology No qualifying data available. Other Therapies No qualifying data available. Post Acute Orders Transfer of Care Code Status - Ordered -- Full Code, Constant Order Transfer of Care Orders Electronically Signed By - Ordered -- 01/10/25 13:04:00 EDT, MIN MADRID MD Transfer of Care Prognosis - Ordered -- Fair, Patient Aware: Yes Transfer of Care Rehab Potential - Ordered -- Rehab potential fair, 01/10/25 13:04:10 EDT Someone Will Contact You Regarding These Home Health Referrals No home referrals have been ordered for you. No one will call you. Allergies doxycycline stomach upset Medications Please ask your primary doctor or pharmacist before taking any other medication not listed, including over the counter drugs, herbal medications, vitamins and or supplements as they may interact with your home medications. What How Much When Instructions Last Dose New clopidogrel (Plavix 75 mg oral tablet) 1 tab(s) by mouth Once a day Duration: 180 Days Refills: 1 Printed Prescription New losartan (losartan 25 mg oral tablet) 1 tab(s) by mouth Once a day Duration: 90 Days Refills: 1 Printed Prescription Changed FLUoxetine (FLUoxetine 40 mg oral capsule) 2 cap by mouth Once a day Changed acetaminophen (acetaminophen 325 mg oral tablet) 2 tab(s) by mouth Three (3) times a day as needed for as needed for pain Changed aspirin (aspirin 81 mg oral delayed release tablet) 1 tab(s) by mouth Every day Duration: 180 Days Printed Prescription Changed atorvastatin (atorvastatin 40 mg oral tablet) 1 tab(s) by mouth Every day Changed cetirizine (cetirizine 5 mg oral tablet) 1 tab(s) by mouth Once a day Changed empagliflozin (empagliflozin 10 mg oral tablet) 1 tab(s) by mouth Once a day (in the morning) Changed furosemide (furosemide 20 mg oral tablet) 1 tab(s) by mouth Once a day Duration: 90 Days Printed Prescription Changed insulin degludec (Tresiba FlexTouch 100 units/ mL 3 mL subcutaneous solution) 10 unit(s) Subcutaneous Once a day Changed levothyroxine (levothyroxine 25 mcg (0.025 mg) oral tablet) 1 tab(s) by mouth Once a day Changed metoprolol (metoprolol succinate 25 mg oral TABLET extended release) 1 tab(s) by mouth Once a day Do not crush or chew (controlled release) Changed mineral oil/ petrolatum/ phenylephrine topical (Preparation H 14%-74.9%-0.25% rectal ointment) 1 application in the rectum Four (4) times a day as needed for hemorrhoidal discomfort Changed ranolazine (ranolazine 500 mg oral tablet, extended release) 1 tab(s) by mouth Two (2) times a day Changed spironolactone (spironolactone 25 mg oral tablet) 0.5 tab by mouth Once a day Duration: 90 Days Take with food Printed Prescription Unchanged acetaminophen-hydrocodone (acetaminophen-hydrocodone 325 mg-5 mg oral tablet) 1 tab(s) by mouth Three (3) times a day Duration: 20 Days Unchanged cholecalciferol (cholecalciferol 25 mcg (1000 intl units) oral tablet) 1 tab(s) by mouth Every day Unchanged lactobacillus rhamnosus GG Once a day Unchanged magnesium oxide (magnesium oxide 400 mg oral tablet) 1 tab(s) by mouth Once a day Unchanged mirtazapine (mirtazapine 15 mg oral tablet) 1 tab(s) by mouth Daily at bedtime Unchanged nitroGLYcerin (nitroglycerin 0.4 mg sublingual tablet) 1 tab(s) under the tongue Every 5 minutes as needed for for chest pain Unchanged pantoprazole (pantoprazole 40 mg oral enteric coated tablet) 1 tab(s) by mouth Once a day before a meal What How Much When Comments Stop Taking amLODIPine (amLODIPine 5 mg oral tablet) 1 tab(s) by mouth Once a day Stop Taking isosorbide mononitrate (isosorbide mononitrate 60 mg oral tablet, extended release) 1 tab(s) by mouth Once a day (in the morning) Stop Taking potassium chloride (potassium chloride 10 mEq oral capsule, extended release) 1 cap by mouth Two (2) times a day take with food. Stop Taking ticagrelor (ticagrelor 90 mg oral tablet) 1 tab(s) by mouth Two (2) times a day Please take this list to your next doctor s visit. Bring all medications you take, including over the counter medications, herbals and other supplements with you to your doctor s visit. Patients and families are reminded to discard old lists and to update any records with all medication providers or retail pharmacies. Medication Leaflets clopidogrel (kloe PID oh grel) Plavix What is the most important information I should know about clopidogrel? You should not use this medicine if you have any active bleeding such as a stomach ulcer or bleeding in the brain. Clopidogrel increases your risk of bleeding, which can be severe or life-threatening. Call your doctor or seek emergency medical attention if you have bleeding that will not stop, if you have blood in your urine, black or bloody stools, or if you cough up blood or vomit that looks like coffee grounds. Do not stop taking clopidogrel without first talking to your doctor, even if you have signs of bleeding. Stopping clopidogrel may increase your risk of a heart attack or stroke. What is clopidogrel? Clopidogrel is used to lower your risk of having a stroke, blood clot, or serious heart problem after you've had a heart attack, severe chest pain (angina), or circulation problems. Clopidogrel may also be used for purposes not listed in this medication guide. What should I discuss with my healthcare provider before taking clopidogrel? You should not use clopidogrel if you are allergic to it, or if you have: any active bleeding; or a stomach ulcer or bleeding in the brain (such as from a head injury). Tell your doctor if you have ever had: an ulcer in your stomach or intestines; or a bleeding disorder or blood clotting disorder. Clopidogrel may not work as well if you have certain genetic factors that affect the breakdown of this medicine in your body. Your doctor may perform a blood test to make sure clopidogrel is right for you. This medicine is not expected to harm an unborn baby. However, taking clopidogrel within 1 week before childbirth can cause bleeding in the mother. Tell your doctor if you are or plan to become . You should not breastfeed while using this medicine. How should I take clopidogrel? Follow all directions on your prescription label and read all medication guides or instruction sheets. Use these medicines exactly as directed. Clopidogrel can be taken with or without food. Clopidogrel is sometimes taken together with aspirin. Take aspirin only if your doctor tells you to. Clopidogrel keeps your blood from coagulating (clotting) and can make it easier for you to bleed, even from a minor injury. Contact your doctor or seek emergency medical attention if you have any bleeding that will not stop. You may need to stop using clopidogrel for a short time before a surgery, medical procedure, or dental work. Any healthcare provider who treats you should know that you are taking clopidogrel. Do not stop taking clopidogrel without first talking to your doctor, even if you have signs of bleeding. Stopping the medicine could increase your risk of a heart attack or stroke. Store at room temperature away from moisture and heat. What happens if I miss a dose? Take the medicine as soon as you can, but skip the missed dose if it is almost time for your next dose. Do not take two doses at one time. What happens if I overdose? Seek emergency medical attention or call the Poison Help line at . Overdose can cause excessive bleeding. What should I avoid while taking clopidogrel? Avoid alcohol. It can increase your risk of stomach bleeding. Avoid activities that may increase your risk of bleeding or injury. Use extra care to prevent bleeding while shaving or brushing your teeth. If you also take aspirin: Ask a doctor or pharmacist before using medicines for pain, fever, swelling, or cold/flu symptoms. They may contain ingredients similar to aspirin (such as salicylates, ibuprofen, ketoprofen, or naproxen). Taking these products together can increase your risk of bleeding. What are the possible side effects of clopidogrel? Get emergency medical help if you have signs of an allergic reaction: hives; difficult breathing; swelling of your face, lips, tongue, or throat. Clopidogrel increases your risk of bleeding, which can be severe or life-threatening. Call your doctor or seek emergency medical attention if you have bleeding that will not stop, if you have blood in your urine, black or bloody stools, or if you cough up blood or vomit that looks like coffee grounds. Also call your doctor at once if you have: nosebleeds, pale skin, easy bruising, purple spots under your skin or in your mouth; jaundice (yellowing of your skin or eyes); fast heartbeats, shortness of breath; headache, fever, weakness, feeling tired; little or no urination; a seizure; low blood sugar--headache, hunger, sweating, irritability, dizziness, fast heart rate, and feeling anxious or shaky; or signs of a blood clot--sudden numbness or weakness, confusion, problems with vision or speech. Common side effects may include: bleeding. This is not a complete list of side effects and others may occur. Call your doctor for medical advice about side effects. You may report side effects to FDA at 9-896-LKC-9742. What other drugs will affect clopidogrel? Sometimes it is not safe to use certain medications at the same time. Some drugs can affect your blood levels of other drugs you take, which may increase side effects or make the medications less effective. Tell your doctor about all your other medicines, especially: a stomach acid contracts manager such as omeprazole, Nexium, or Prilosec; an antidepressant such as citalopram, fluoxetine, sertraline, Cymbalta, Effexor, Lexapro, Pristiq, or Prozac; rifampin; a blood thinner--warfarin, Coumadin, Jantoven; or NSAIDs (nonsteroidal anti-inflammatory drugs)--aspirin, ibuprofen (Advil, Motrin), naproxen (Aleve), celecoxib, diclofenac, indomethacin, meloxicam, and others. This list is not complete. Other drugs may affect clopidogrel, including prescription and zzjc-iod-lqjdvdl medicines, vitamins, and herbal products. Not all possible drug interactions are listed here. Where can I get more information? Your pharmacist can provide more information about clopidogrel. Remember, keep this and all other medicines out of the reach of children, never share your medicines with others, and use this medication only for the indication prescribed. Every effort has been made to ensure that the information provided by [employer]. [employer]') is accurate, up-to-date, and complete, but no guarantee is made to that effect. Drug information contained herein may be time sensitive. [employer] information has been compiled for use by healthcare practitioners and consumers in the [place] and therefore [employer] does not warrant that uses outside of the [place] are appropriate, unless specifically indicated otherwise. [employer] drug information does not endorse drugs, diagnose patients or recommend therapy. [employer] drug information is an informational resource designed to assist licensed healthcare practitioners in caring for their patients and/or to serve consumers viewing this service as a supplement to, and not a substitute for, the expertise, skill, knowledge and judgment of healthcare practitioners. The absence of a warning for a given drug or drug combination in no way should be construed to indicate that the drug or drug combination is safe, effective or appropriate for any given patient. [employer] does not assume any responsibility for any aspect of healthcare administered with the aid of information [employer] provides. The information contained herein is not intended to cover all possible uses, directions, precautions, warnings, drug interactions, allergic reactions, or adverse effects. If you have questions about the drugs you are taking, check with your doctor, nurse or pharmacist. Copyright 4977-7593 [employer]. Version: 18.. Revision Date: 2020. aspirin (oral) ( pir in) Aspi-Cor, Rebeca Plus, Ecotrin, Miniprin, [place] What is the most important information I should know about aspirin? Aspirin can cause Liane's syndrome, a serious and sometimes fatal condition in children. What is aspirin? Aspirin is a salicylate (ed-QWP-za-ate) that is used to treat pain, and reduce fever or inflammation. Aspirin is sometimes used to treat or prevent heart attacks, strokes, and chest pain (angina). Aspirin should be used for these conditions only under the supervision of a doctor. Aspirin may also be used for purposes not listed in this medication guide. What should I discuss with my healthcare provider before taking aspirin? Using aspirin in a child or teenager with flu symptoms or chickenpox can cause a serious or fatal condition called Liane's syndrome. You should not use aspirin if you are allergic to it, or if you have: a recent history of stomach or intestinal bleeding; a bleeding disorder such as hemophilia; or if you have ever had an asthma attack or severe allergic reaction after taking aspirin or an NSAID (non-steroidal anti-inflammatory drug). Tell your doctor if you have ever had: asthma or seasonal allergies; stomach ulcers; liver disease; kidney disease; a bleeding or blood clotting disorder; gout; or heart disease, high blood pressure, or congestive heart failure. Taking aspirin during late may cause bleeding in the mother or the baby during delivery. Tell your doctor if you are or plan to become . You should not breastfeed while using this medicine. How should I take aspirin? Use exactly as directed on the label, or as prescribed by your doctor. Always follow directions on the medicine label about giving aspirin to a child. Take with food if aspirin upsets your stomach. You must chew the chewable tablet before you swallow it. Do not crush, chew, break, or open an enteric-coated or delayed/extended-release pill. Swallow it whole. Tell your doctor if you have a planned surgery. Store at room temperature away from moisture and heat. Do not use aspirin if you smell a strong vinegar odor in the aspirin bottle. The medicine may no longer be effective. What happens if I miss a dose? Aspirin is used when needed. If you are on a dosing schedule, skip any missed dose. Do not use two doses at one time. What happens if I overdose? Seek emergency medical attention or call the Poison Help line at . Overdose may cause stomach pain, vomiting, diarrhea, vision or hearing problems, fast or slow breathing, or confusion. What should I avoid while taking aspirin? Avoid alcohol. Heavy drinking can increase your risk of stomach bleeding. Avoid taking ibuprofen if you take aspirin to prevent stroke or heart attack. Ibuprofen can make aspirin less effective in protecting your heart and blood vessels. Ask your doctor how far apart your doses should be. Ask a doctor or pharmacist before using other medicines for pain, fever, swelling, or cold/flu symptoms. They may contain ingredients similar to aspirin (such as magnesium salicylate, ibuprofen, ketoprofen, or naproxen). What are the possible side effects of aspirin? Get emergency medical help if you have signs of an allergic reaction: hives; difficult breathing; swelling of your face, lips, tongue, or throat. Stop using aspirin and call your doctor at once if you have: ringing in your ears, confusion, hallucinations, rapid breathing, seizure (convulsions); severe nausea, vomiting, or stomach pain; bloody or tarry stools, coughing up blood or vomit that looks like coffee grounds; fever lasting longer than 3 days; or swelling, or pain lasting longer than 10 days. Common side effects may include: upset stomach, heartburn; drowsiness; or mild headache. This is not a complete list of side effects and others may occur. Call your doctor for medical advice about side effects. You may report side effects to FDA at 6-056-QST-4252. What other drugs will affect aspirin? Ask your doctor before using aspirin if you take an antidepressant. Taking certain antidepressants with aspirin may cause you to bruise or bleed easily. Ask a doctor or pharmacist before using aspirin with any other medications, especially: a blood thinner (warfarin, Coumadin, Jantoven), or other medication used to prevent blood clots; or other salicylates such as Nuprin Backache Caplet, Kaopectate, KneeRelief, Pamprin Cramp Formula, Pepto-Bismol, Tricosal, Trilisate, and others. This list is not complete. Other drugs may affect aspirin, including prescription and nugu-olx-pteqhzo medicines, vitamins, and herbal products. Not all possible drug interactions are listed here. Where can I get more information? Your pharmacist can provide more information about aspirin. Remember, keep this and all other medicines out of the reach of children, never share your medicines with others, and use this medication only for the indication prescribed. Every effort has been made to ensure that the information provided by [employer]. ('[employer]') is accurate, up-to-date, and complete, but no guarantee is made to that effect. Drug information contained herein may be time sensitive. [employer] information has been compiled for use by healthcare practitioners and consumers in the [place] and therefore [employer] does not warrant that uses outside of the [place] are appropriate, unless specifically indicated otherwise. [employer] drug information does not endorse drugs, diagnose patients or recommend therapy. [employer] drug information is an informational resource designed to assist licensed healthcare practitioners in caring for their patients and/or to serve consumers viewing this service as a supplement to, and not a substitute for, the expertise, skill, knowledge and judgment of healthcare practitioners. The absence of a warning for a given drug or drug combination in no way should be construed to indicate that the drug or drug combination is safe, effective or appropriate for any given patient. [employer] does not assume any responsibility for any aspect of healthcare administered with the aid of information [employer] provides. The information contained herein is not intended to cover all possible uses, directions, precautions, warnings, drug interactions, allergic reactions, or adverse effects. If you have questions about the drugs you are taking, check with your doctor, nurse or pharmacist. Copyright 1046-5474 [employer]. Version: 18.02. Revision Date: 04/19/2024. Education Materials HEART CATHETERIZATION/PCI (radial) Discharge Instructions DIET Drink plenty of fluids for the next 48 hours to help your kidneys flush the heart cath dye out of your system ACTIVITY For the next 48 hours: Do not deep bend the wrist Do not lift, push, or pull anything over 5 pounds Do not use the hand/arm to support your weight when rising from a chair or bed Do not drive For the next 7 days: Do not submerse your procedure site in water Do not swim, wash dishes, or take tub baths You may write, eat, type, and shower WOUND CARE Keep a Band-Aid on your procedure site for the next 3-4 days Change the Band-Aid daily or if it gets wet/soiled AFTER YOU GO HOME, CALL YOUR DOCTOR FOR: Any increase in bruising or tenderness from the procedure site Any redness, pus, or other signs of infection at the site A temperature above 100.5 Severe pain at the site DIAL 911 AND RETURN TO THE HOSPITAL FOR: Any bleeding from the procedure site. The site may be bruised or tender, but it should not be bleeding at any time. If your site begins to bleed, hold firm pressure on it and dial 911 to return to the hospital Any increase in swelling at the procedure site. An increase in swelling could mean the area is bleeding under the skin. Hold firm pressure to the site and dial 911 to return to the hospital Document Released: 04/19/2006 Document Revised: 04/05/2013 Document Reviewed: 04/20/2014 ExitCare Patient Information 2015 [employer] [facility]. This information is not intended to replace advice given to you by your health care provider. Make sure you discuss any questions you have with your health care provider. Additional Information VACCINATE! IT SAVES LIVES! Members of the community who have not yet received the COVID-19 vaccine and would like to receive it can visit one of [facility] vaccine clinics. There are many vaccine clinic locations within the [facility]. For locations and available times, please visit [email or web address] It is important to note that some COVID mobile vaccine clinics are held outdoors and may be canceled in rainy or stormy conditions. To learn more about pediatric vaccinations (ages 5-11), we invite you to visit the [facility] webpage. [email or web address].[email or web address].org/ pages/0365-Ykuam-Hltrslpcark-Fr aeydfbbt-Lpjyq-Upspsqvrw.html To learn more about the COVID-19 vaccine, we invite you to visit the CDC website for a list of frequently asked questions.https://www.cdc.gov/c oronavirus/2019-ncov/vaccines/f aq.html [facility] Patient Portal Access Instructions: Stay connected with your healthcare team and access your personal medical information anytime with the [employer] Patient Portal. Please follow the directions below to create your [facility] account: 1.Access the email account you provided upon registration to the hospital/physician office.2.Look for an invitation email from [facility].3.Open the email and access the invitation link: Accept Invitation to [facility].4.Fill in the required kim to create your account. To access your account, visit [employer]. Click the blue button labeled Access Patient Portal and then log in with the username and password that you created in the steps above. You will be able to view your test results, lab results, a summary of your visits, upcoming appointments and more. There is also a convenient messaging option where you can send secure messages to your provider. In addition, you will have the ability to download any documents or summaries to your computer and/or send the information securely to a physician. Remember that your healthcare information is confidential, so carefully consider who you will allow to register on the [facility] for access to your information. You can also access the [facility] on the [place] [facility] tuan. Simply click on Patient Portal and then log into your account. If you would like to receive a full copy of your medical records, please contact the [facility] Medical Records Department by calling [phone], Wednesday through Wednesday between 8 a.m. and 4:30 p.m. HOW TO SAFELY DISPOSE OF PRESCRIPTION MEDICATIONS Please use one of the following methods to safely dispose of your unused medications. 1.Use a drug disposal kit: the drug disposal pouch allows you to safely discard your old and unused drugs. Ask your nurse to give you one when you are discharged.2.Visit a local take-back location: Many local pharmacies and police departments have programs that collect old and unwanted prescription drugs. Call your local pharmacy or go to http://[employer].NavPrescience/4O0Xh0n to find one close to you.3.Make use of household items: Use cat litter or old coffee grounds to dispose medications if other options are not available. Mix your drugs with these household products, seal them in an airtight container and throw it into the garbage. Call [facility]: [phone] to be sure your drugs can be disposed of in this way. Some medicines may require a different approach.4.Never flush your medications down the toilet. IF YOU HAVE BEEN PRESCRIBED AN OPIOID FOR PAIN If you have been prescribed an opioid (such as hydrocodone, oxycodone or morphine), it is critical to understand the possible side effects and risks of opioid pain medications. Even when taken as directed, opioids can have several side effects including: Tolerance, meaning you might need to take more of a medication for the same pain relief. Nausea, vomiting and/or constipation. Sleepiness, dizziness, dry mouth, confusion, depression or itching. Physical dependence, meaning you have withdrawal symptoms when a medication is stopped, can develop within a few days. KNOW YOUR RESPONSIBILITIES It is important to know exactly how much and how often to take the opioid pain medications you are prescribed. Never take opioids in higher amounts or more often than prescribed. Do not combine opioids with alcohol or other drugs that cause drowsiness, such as benzodiazepines, also known as benzos, including diazepam and alprazolam, muscle relaxants or sleep aids. Never sell or share prescription opioids. This is illegal. Store opioids in a secure place and out of reach of others (including children, family, friends and visitors). The last page of this document has been signed and retained as a CHART COPY. Signatures Patient Education Materials 3- Heart Cath/PCI radial (01/2018)(CUSTOM) Medication Leaflets clopidogrel, aspirin (oral) My discharge plan and instructions have been reviewed and explained to me and I,GERRY RICO understand my current condition and have read and understand these discharge instructions. I have received a written copy of the plan/instructions. If I have questions, I am aware that I should contact my doctor. 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 Admitted for STEMI, underwent LHC requiring PCI to RCA, and received temporary pacer for intermittent CHB, suspected to be due to RCA disease, EP followed the patient during hospitalization, CHB resolved and the telemetry showed intermittent Mobitz type I block, patient was not symptomatic. Resumed home dose metoprolol given sinus tach he episodes on telemetry, tolerated well. He was noted to have reduced EF around 3540%, after cath he was feeling dyspneic, volume overloaded and needed IV diuretics which were transitioned to oral diuretics prior to discharge, diuresed well. He was started on diuretics and breathing treatments as well given underlying undiagnosed COPD with prior smoking history, which improved. He had mild intermittent chest pain, repeat Trope was trending down compared to prior with no acute ischemic changes on EKG which improved later. He had few episodes of hematochezia during this admission, hemoglobin was monitored closely which was stable, he had EGD and colonoscopy for similar reasons at [facility], requested records, GI was consulted who recommended no intervention at this time and cleared for discharge. He was noted to have AUDRA and received IV iron replacement. Discharged to SNF. Allergies doxycycline stomach upset Procedures [facility] Consults Consult to Physician - Ordered -- 01/04/25 6:05:00 EDT, TANNER WHALEN MD, Routine, CHB Consult to Physician - Ordered -- 01/10/25 8:28:00 EDT, MD SCOOBY CURIEL MD, Routine, hematochezia recommendation for anticoagulant Imaging Results and Diagnostics TTE Physical Exam Vitals and Measurements T: 36.3 C (Oral) TMIN: 36.3 C (Oral) TMAX: 36.9 C (Oral) HR: 70 (Monitored) RR: 18 BP: 121/81 SpO2: 96% Weight Dosing Weight: 98.4 kg (01/03/25) General: Appears stated age and in no acute distress Neck: No JVD Lungs: CTAB with nonlabored breathing Cardiac: Regular rhythm with normal S1-S2 Extremities: Mild pitting edema bilaterally Code Status Code Status - Ordered -- 01/03/25 20:34:00 EDT, Full Code, Constant Order Admission Date 01/03/2025 Discharge Date 01/10/2025 Patient Instructions Stressed on compliance with medication especially DAPT Follow-up with cardiology Medications New Prescription clopidogrel (Plavix 75 mg oral tablet)1 tab(s) by mouth once a day for 180 Days. Refills: 1. losartan (losartan 25 mg oral tablet)1 tab(s) by mouth once a day for 90 Days. Refills: 1. Changed FLUoxetine (FLUoxetine 40 mg oral capsule)2 cap by mouth once a day. acetaminophen (acetaminophen 325 mg oral tablet)2 tab(s) by mouth three (3) times a day as needed as needed for pain. aspirin (aspirin 81 mg oral delayed release tablet)1 tab(s) by mouth every day for 180 Days. Refills: 1. atorvastatin (atorvastatin 40 mg oral tablet)1 tab(s) by mouth every day. cetirizine (cetirizine 5 mg oral tablet)1 tab(s) by mouth once a day. empagliflozin (empagliflozin 10 mg oral tablet)1 tab(s) by mouth once a day (in the morning). furosemide (furosemide 20 mg oral tablet)1 tab(s) by mouth once a day for 90 Days. Refills: 1. insulin degludec (Tresiba FlexTouch 100 units/mL 3 mL subcutaneous solution)10 unit(s) Subcutaneous once a day. levothyroxine (levothyroxine 25 mcg (0.025 mg) oral tablet)1 tab(s) by mouth once a day. metoprolol (metoprolol succinate 25 mg oral TABLET extended release)1 tab(s) by mouth once a day. Do not crush or chew (controlled release). mineral oil/petrolatum/phenylephrine topical (Preparation H 14%-74.9%-0.25% rectal ointment)1 application in the rectum four (4) times a day as needed hemorrhoidal discomfort. ranolazine (ranolazine 500 mg oral tablet, extended release)1 tab(s) by mouth two (2) times a day. spironolactone (spironolactone 25 mg oral tablet)0.5 tab by mouth once a day for 90 Days. Take with food. Refills: 1. Unchanged acetaminophen-hydrocodone (acetaminophen-hydrocodone 325 mg-5 mg oral tablet)1 tab(s) by mouth three (3) times a day for 20 Days. cholecalciferol (cholecalciferol 25 mcg (1000 intl units) oral tablet)1 tab(s) by mouth every day. lactobacillus rhamnosus GGonce a day. magnesium oxide (magnesium oxide 400 mg oral tablet)1 tab(s) by mouth once a day. mirtazapine (mirtazapine 15 mg oral tablet)1 tab(s) by mouth daily at bedtime. nitroGLYcerin (nitroglycerin 0.4 mg sublingual tablet)1 tab(s) under the tongue every 5 minutes as needed for chest pain. pantoprazole (pantoprazole 40 mg oral enteric coated tablet)1 tab(s) by mouth once a day before a meal. Discontinued amLODIPine (amLODIPine 5 mg oral tablet)1 tab(s) by mouth once a day. isosorbide mononitrate (isosorbide mononitrate 60 mg oral tablet, extended release)1 tab(s) by mouth once a day (in the morning). potassium chloride (potassium chloride 10 mEq oral capsule, extended release)1 cap by mouth two (2) times a day. take with food.. ticagrelor (ticagrelor 90 mg oral tablet)1 tab(s) by mouth two (2) times a day. Follow Up Follow Up with JEFFREY SPIVEY MD When:In 2 weeks Where:[address] [facility] [place] [address]- [phone] Follow Up with Cardiac Rehab- [facility] Where:[address] [place] [address]- Additional Information: Cardiac rehabilitation is a vital part of your recovery and long-term heart health following your hospital stay. It is a medically supervised exercise and education program designed to improve your physical fitness, manage heart-related risk factors, and support emotional well-being. A cardiac rehab steam and gas turbines assembler will contact you soon to schedule your follow-up appointment. If you have any questions please call [phone]. Follow Up Appointments No qualifying data available. Follow Up Labs/Studies Discharge Labs No Follow-up Labs Discharge Studies No Follow-up Studies Discharge Diet Transfer of Care Diet - Ordered -- Type of Diet: Cardiac, 01/10/25 13:04:00 EDT Discharge Activity Transfer of Care Activity - Ordered -- Activity As Tolerated, 01/10/25 13:04:00 EDT Condition on Discharge Hemodynamically stable Discharge Disposition SNF Information Provided To Patient and family Digitally Signed by ARMANDO BAÑUELOS MD on 01/10/2025 01:05 PM [facility] 01-10-2025 Discharge summary Date of Service 01/10/2025 Discharge Diagnosis STEMI status post PCI to RCA Hospital Course Patient is a 79-year-old male with history of CAD with PCI on 11/27/2024 with in-stent thrombosis requiring repeat PCI, ischemic cardiomyopathy, type 2 diabetes mellitus, hyperlipidemia and hypothyroidism presented from [place] as a transfer for concerns with complete heart block. Admitted for STEMI, underwent LHC requiring PCI to RCA, and received temporary pacer for intermittent CHB, suspected to be due to RCA disease, EP followed the patient during hospitalization, CHB resolved and the telemetry showed intermittent Mobitz type I block, patient was not symptomatic. Resumed home dose metoprolol given sinus tach he episodes on telemetry, tolerated well. He was noted to have reduced EF around 3540%, after cath he was feeling dyspneic, volume overloaded and needed IV diuretics which were transitioned to oral diuretics prior to discharge, diuresed well. He was started on diuretics and breathing treatments as well given underlying undiagnosed COPD with prior smoking history, which improved. He had mild intermittent chest pain, repeat Trope was trending down compared to prior with no acute ischemic changes on EKG which improved later. He had few episodes of hematochezia during this admission, hemoglobin was monitored closely which was stable, he had EGD and colonoscopy for similar reasons at [facility], requested records, GI was consulted who recommended no intervention at this time and cleared for discharge. He was noted to have AUDRA and received IV iron replacement. Discharged to SNF. Allergies doxycycline stomach upset Procedures [facility] Consults Consult to Physician - Ordered -- 01/04/25 6:05:00 EDT, TANNER WHALEN MD, Routine, CHB Consult to Physician - Ordered -- 01/10/25 8:28:00 EDT, MD SCOBOY CURIEL MD, Routine, hematochezia recommendation for anticoagulant Imaging Results and Diagnostics TTE Physical Exam Vitals and Measurements T: 36.3 C (Oral) TMIN: 36.3 C (Oral) TMAX: 36.9 C (Oral) HR: 70 (Monitored) RR: 18 BP: 121/81 SpO2: 96% Weight Dosing Weight: 98.4 kg (01/03/25) General: Appears stated age and in no acute distress Neck: No JVD Lungs: CTAB with nonlabored breathing Cardiac: Regular rhythm with normal S1-S2 Extremities: Mild pitting edema bilaterally Code Status Code Status - Ordered -- 01/03/25 20:34:00 EDT, Full Code, Constant Order Admission Date 01/03/2025 Discharge Date 01/10/2025 Patient Instructions Stressed on compliance with medication especially DAPT Follow-up with cardiology Medications New Prescription clopidogrel (Plavix 75 mg oral tablet)1 tab(s) by mouth once a day for 180 Days. Refills: 1. losartan (losartan 25 mg oral tablet)1 tab(s) by mouth once a day for 90 Days. Refills: 1. Changed FLUoxetine (FLUoxetine 40 mg oral capsule)2 cap by mouth once a day. acetaminophen (acetaminophen 325 mg oral tablet)2 tab(s) by mouth three (3) times a day as needed as needed for pain. aspirin (aspirin 81 mg oral delayed release tablet)1 tab(s) by mouth every day for 180 Days. Refills: 1. atorvastatin (atorvastatin 40 mg oral tablet)1 tab(s) by mouth every day. cetirizine (cetirizine 5 mg oral tablet)1 tab(s) by mouth once a day. empagliflozin (empagliflozin 10 mg oral tablet)1 tab(s) by mouth once a day (in the morning). furosemide (furosemide 20 mg oral tablet)1 tab(s) by mouth once a day for 90 Days. Refills: 1. insulin degludec (Tresiba FlexTouch 100 units/mL 3 mL subcutaneous solution)10 unit(s) Subcutaneous once a day. levothyroxine (levothyroxine 25 mcg (0.025 mg) oral tablet)1 tab(s) by mouth once a day. metoprolol (metoprolol succinate 25 mg oral TABLET extended release)1 tab(s) by mouth once a day. Do not crush or chew (controlled release). mineral oil/petrolatum/phenylephrine topical (Preparation H 14%-74.9%-0.25% rectal ointment)1 application in the rectum four (4) times a day as needed hemorrhoidal discomfort. ranolazine (ranolazine 500 mg oral tablet, extended release)1 tab(s) by mouth two (2) times a day. spironolactone (spironolactone 25 mg oral tablet)0.5 tab by mouth once a day for 90 Days. Take with food. Refills: 1. Unchanged acetaminophen-hydrocodone (acetaminophen-hydrocodone 325 mg-5 mg oral tablet)1 tab(s) by mouth three (3) times a day for 20 Days. cholecalciferol (cholecalciferol 25 mcg (1000 intl units) oral tablet)1 tab(s) by mouth every day. lactobacillus rhamnosus GGonce a day. magnesium oxide (magnesium oxide 400 mg oral tablet)1 tab(s) by mouth once a day. mirtazapine (mirtazapine 15 mg oral tablet)1 tab(s) by mouth daily at bedtime. nitroGLYcerin (nitroglycerin 0.4 mg sublingual tablet)1 tab(s) under the tongue every 5 minutes as needed for chest pain. pantoprazole (pantoprazole 40 mg oral enteric coated tablet)1 tab(s) by mouth once a day before a meal. Discontinued amLODIPine (amLODIPine 5 mg oral tablet)1 tab(s) by mouth once a day. isosorbide mononitrate (isosorbide mononitrate 60 mg oral tablet, extended release)1 tab(s) by mouth once a day (in the morning). potassium chloride (potassium chloride 10 mEq oral capsule, extended release)1 cap by mouth two (2) times a day. take with food.. ticagrelor (ticagrelor 90 mg oral tablet)1 tab(s) by mouth two (2) times a day. Follow Up Follow Up with JEFFREY SPIVEY MD When:In 2 weeks Where:[address] [facility] [place] [address] [phone] Follow Up with Cardiac Rehab- [facility] Where:[address] [place] [address]- Additional Information: Cardiac rehabilitation is a vital part of your recovery and long-term heart health following your hospital stay. It is a medically supervised exercise and education program designed to improve your physical fitness, manage heart-related risk factors, and support emotional well-being. A cardiac rehab steam and gas turbines assembler will contact you soon to schedule your follow-up appointment. If you have any questions please call [phone]. Follow Up Appointments No qualifying data available. Follow Up Labs/Studies Discharge Labs No Follow-up Labs Discharge Studies No Follow-up Studies Discharge Diet Transfer of Care Diet - Ordered -- Type of Diet: Cardiac, 01/10/25 13:04:00 EDT Discharge Activity Transfer of Care Activity - Ordered -- Activity As Tolerated, 01/10/25 13:04:00 EDT Condition on Discharge Hemodynamically stable Discharge Disposition SNF Information Provided To Patient and family Digitally Signed by ARMANDO BAÑUELOS MD on 01/10/2025 01:05 PM [facility] 01-10-2025 Gastroenterology Consult note Date of Service January 12, 2025 Reason for Consultation Anemia/rectal bleeding History of Present Illness Gerry is a 79-year-old with multiple medical problems, he presented for evaluation of chest pain and this was associated with worsening kidney function as well as a TIA. The patient endorses some bright red blood per rectum usually with bowel movements. Of note that the patient had the same evaluated at [place] on December 25 with a colonoscopy results of which are not in the chart yet but per the patient he had a couple of polyps that were removed and clipped. The patient denies any abdominal pain, denies any nausea or vomiting or any other symptomatology. He is a resident of a nursing facility and he stated that they are monitoring him closely and if he would have any further issues he would like to go back to the [place] rib puller that took care of him up for the previous colonoscopy Review of Systems 10 system reviewed as above otherwise negative HEENT slightly pale mucous membranes Physical Exam Vitals and Measurements T: 36.7 C (Oral) TMIN: 36.6 C (Oral) TMAX: 36.9 C (Oral) HR: 79 (Monitored) RR: 18 BP: 116/66 SpO2: 96% Weight Dosing Weight: 98.4 kg (01/03/25) Neck supple no masses Chest and lungs Bibasilar rhonchi Heart normal S1-S2 no rubs or gallops Abdomen soft no tenderness no rebound no guarding no masses lower extremities no edema pulses intact Skin is intact with small areas of ecchymosis Lab Results 01/10 03:09 WBC: 7.6 Hgb: 12.0 L Hct: 37.0 L Platelet: 171 Neutrophil %: 74.0 Glucose Level: 151 H Sodium Level: 141 Potassium Level: 3.6 BUN: 13.0 Creatinine Lvl (s): 1.42 H 01/09 03:50 WBC: 5.8 Hgb: 10.9 L Hct: 33.1 L Platelet: 150 Neutrophil %: 66.9 Glucose Level: 103 Sodium Level: 141 Potassium Level: 3.3 L BUN: 12.0 Creatinine Lvl (s): 1.30 Assessment/Plan Painless low-volume rectal bleeding was evaluated at [facility] with a colonoscopy on December 25 I asked the nursing to get the scope results to have it in our record just in case we need intervention at some point. At this point I do not see any reason for any intervention specially with his stable H&H. I would continue with measures per cardiology, nothing further to add from GI standpoint will sign off Problem List/Past Medical History Ongoing Chest pain Kidney disease Sleep apnea TIA (transient ischemic attack) Type 2 diabetes mellitus Procedure/Surgical History Tonsillectomy percutaneous coronary angioplasty Prostatectomy planned Herniorrhaphy Medications Inpatient acetaminophen, 500 mg= 1 tab(s), Oral, q6h, PRN Aldactone 5 mg/mL Susp ORAL syringe, 12.5 mg= 2.5 mL, Oral, qDayM aspirin 81 mg oral delayed release tablet, 81 mg= 1 tab(s), Oral, Daily atorvastatin, 40 mg= 1 tab(s), Oral, qDay Dextrose 50% IV Push, 25 gram(s)= 50 mL, IV Push, AsDirected, PRN DuoNeb, 3 mL, Inhalation, q4hRT, PRN empagliflozin, 10 mg= 1 tab(s), Oral, qAM FLUoxetine, 40 mg= 2 cap(s), Oral, qDay furosemide, 20 mg= 1 tab(s), Oral, qDay Heparin for IV 25,000 unit(s) + Dextrose 5% Premix Diluent 250 mL Heparin HBW CARDIAC Bolus 5000 units/mL, 4000 unit(s)= 0.8 mL, 60 unit(s)/kg, IV Push, q6h, PRN HumaLOG 100 units/mL subcutaneous solution, Give 0-5 units/dose, Subcutaneous, TIDAC levothyroxine, 25 mcg= 1 tab(s), Oral, qDay losartan, 25 mg= 1 tab(s), Oral, qDay magnesium sulfate for IV bolus, 2 gram(s)= 50 mL, IV Piggyback, AsDirected, PRN magnesium sulfate for IV bolus, 4 gram(s)= 100 mL, IV Piggyback, AsDirected, PRN magnesium sulfate for IV bolus melatonin, 5 mg= 1 tab(s), Oral, qHS, PRN metoprolol succinate 25 mg oral TABLET extended release, 25 mg= 1 tab(s), Oral, qDay nitroglycerin 0.4 mg sublingual tablet, 0.4 mg= 1 tab(s), Sublingual, q5min, PRN NS 1,000 mL, 1000 mL, Intravenous pantoprazole, 40 mg= 1 tab(s), Oral, qDayAC Plavix, 75 mg= 1 tab(s), Oral, qDay potassium chloride, 20 mEq= 1 tab(s), Oral, AsDirected, PRN potassium chloride, 40 mEq= 2 tab(s), Oral, AsDirected, PRN potassium chloride, 40 mEq= 2 tab(s), Oral, AsDirected, PRN potassium chloride bolus, 20 mEq= 100 mL, IV Piggyback, AsDirected, PRN Tigan, 200 mg= 2 mL, Intramuscular, q6h, PRN Home acetaminophen 325 mg oral tablet, 650 mg= 2 tab(s), Oral, TID, PRN, Patient Unsure acetaminophen-hydrocodone 325 mg-5 mg oral tablet, 1 tab(s), Oral, TID, Patient Unsure amLODIPine 5 mg oral tablet, 5 mg= 1 tab(s), Oral, qDay, Patient Unsure aspirin 81 mg oral delayed release tablet, 81 mg= 1 tab(s), Oral, Daily, Patient Unsure atorvastatin 40 mg oral tablet, 40 mg= 1 tab(s), Oral, Daily cetirizine 5 mg oral tablet, 5 mg= 1 tab(s), Oral, qDay cholecalciferol 25 mcg (1000 intl units) oral tablet, 25 mcg= 1 tab(s), Oral, Daily, Patient Unsure empagliflozin 10 mg oral tablet, 10 mg= 1 tab(s), Oral, qAM FLUoxetine 40 mg oral capsule, 80 mg= 2 cap(s), Oral, qDay furosemide 40 mg oral tablet, 40 mg= 1 tab(s), Oral, Every other day isosorbide mononitrate 60 mg oral tablet, extended release, 60 mg= 1 tab(s), Oral, qAM lactobacillus rhamnosus GG, qDay, Patient Unsure levothyroxine 25 mcg (0.025 mg) oral tablet, 25 mcg= 1 tab(s), Oral, qDay magnesium oxide 400 mg oral tablet, 400 mg= 1 tab(s), Oral, qDay, Patient Unsure metoprolol succinate 25 mg oral TABLET extended release, 25 mg= 1 tab(s), Oral, qDay mirtazapine 15 mg oral tablet, 15 mg= 1 tab(s), Oral, qHS, Patient Unsure nitroglycerin 0.4 mg sublingual tablet, 0.4 mg= 1 tab(s), Sublingual, q5min, PRN, Patient Unsure pantoprazole 40 mg oral enteric coated tablet, 40 mg= 1 tab(s), Oral, qDayAC, Patient Unsure potassium chloride 10 mEq oral capsule, extended release, 10 mEq= 1 cap(s), Oral, BID Preparation H 14%-74.9%-0.25% rectal ointment, 1 tuan, Rectal, QID, PRN ranolazine 500 mg oral tablet, extended release, 500 mg= 1 tab(s), Oral, BID spironolactone 25 mg oral tablet, 25 mg= 1 tab(s), Oral, qDay ticagrelor 90 mg oral tablet, 90 mg= 1 tab(s), Oral, BID, Patient Unsure Tresiba FlexTouch 100 units/mL 3 mL subcutaneous solution, 10 unit(s), Subcutaneous, qDay Allergies doxycycline stomach upset Social History Alcohol Use: Never., 01/03/2025 Home/Environment Living situation: Extended Care Facility., 01/03/2025 Substance Abuse Use: Never., 01/03/2025 Tobacco Nicotine Use: Former smoker, quit more than 30 days ago., 01/03/2025 Immunizations No qualifying data available. Digitally Signed by COREEN NEWBERRY MD on 01/10/2025 10:03 AM [facility] 01-09-2025 Cardiology Progre ss note Subjective Patient seen and examined bedside this morning. Denies any new concerns. Stated he is feeling much better. Telemetry reviewed showing few episodes of sinus tach, tolerated Toprol. Had an episode of hematochezia, consulting GI. Objective Vitals and Measurements T: 36.5 C (Oral) TMIN: 36.5 C (Oral) TMAX: 36.8 C (Oral) HR: 79 (Monitored) RR: 18 BP: 102/52 SpO2: 98% Intake and Output Last 24 hours Intake Medication 6.50 Oral Intake 640.00 Output Urine Voided 1800.00 Stool Count 5.00 Urine Count 2.00 Total Summary Total Intake 646.50 Total Output 1800.00 Fluid Balance -1153.50 Physical Exam General: Appears stated age and in no acute distress Neck: JVD elevated Lungs: Bibasilar crackles with wheezing Cardiac: Regular rhythm with normal S1-S2 Extremities: Mild pitting edema bilaterally Weight Dosing Weight: 98.4 kg (01/03/25) Medications Medications (27) Active Scheduled: (12) aspirin 81 mg EC 81 mg 1 tab(s), Oral, Daily atorvastatin 40 mg tablet 40 mg 1 tab(s), Oral, qDay clopidogrel 75 mg Tablet 75 mg 1 tab(s), Oral, qDay empagliflozin 10 mg tablet 10 mg 1 tab(s), Oral, qAM fluoxetine 20 mg Capsule 40 mg 2 cap(s), Oral, qDay furosemide 20 mg tablet 20 mg 1 tab(s), Oral, BID insulin lispro 100 units/mL Soln (3 mL) Give 0-5 units/dose, Subcutaneous, TIDAC levothyroxine 25 mcg tablet 25 mcg 1 tab(s), Oral, qDay losartan 25 mg tablet 25 mg 1 tab(s), Oral, qDay metoprolol succinate 25 mg ER tablet 25 mg 1 tab(s), Oral, qDay pantoprazole 40 mg EC tablet 40 mg 1 tab(s), Oral, qDayAC spironolactone 5 mg /1 mL 2.5 mL Susp ORAL syringe CMPD 12.5 mg 2.5 mL, Oral, qDayM Continuous: (2) heparin 25,000 unit(s) + Dextrose 5% Premix Diluent 250 mL 250 mL, Intravenous, 10 mL/hr NS (0.9% nacl) 1,000 mL 1,000 mL, Intravenous, 125 mL/hr PRN: (13) albuterol - ipratropium 2.5 mg-0.5 mg/3 mL Inhal Odalis UD 3 mL, Inhalation, q4hRT dextrose 50% Solution Disp syringe 50 mL 25 gram(s) 50 mL, IV Push, AsDirected heparin 5,000 units/mL (1 mL) vial 4,000 unit(s) 0.8 mL, IV Push, q6h magnesium sulfate 4 gram(s)/100mL PMX 4 g 100 mL, IV Piggyback, AsDirected magnesium sulfate 50% (500mg/mL) 6 g 12 mL, IV Piggyback, AsDirected magnesium sulfate PMX 2 g 50 mL, IV Piggyback, AsDirected melatonin 5 mg tablet 5 mg 1 tab(s), Oral, qHS nitroglycerin 0.4 mg Tablet (25/btl) 0.4 mg 1 tab(s), Sublingual, q5min potassium chloride (PMX) 20 mEq/100 mL 20 mEq 100 mL, IV Piggyback, AsDirected potassium chloride 20 mEq ER tablet 20 mEq 1 tab(s), Oral, AsDirected potassium chloride 20 mEq ER tablet 40 mEq 2 tab(s), Oral, AsDirected potassium chloride 20 mEq ER tablet 40 mEq 2 tab(s), Oral, AsDirected trimethobenzamide 200 mg/2 mL Solution 200 mg 2 mL, Intramuscular, q6h Lab Results 01/09 03:50 WBC: 5.8 Hgb: 10.9 L Hct: 33.1 L Platelet: 150 Neutrophil %: 66.9 Glucose Level: 103 Sodium Level: 141 Potassium Level: 3.3 L BUN: 12.0 Creatinine Lvl (s): 1.30 01/08 02:16 WBC: 5.7 Hgb: 10.6 L Hct: 31.9 L Platelet: 143 L Neutrophil %: 71.4 Glucose Level: 110 Sodium Level: 141 Potassium Level: 3.2 L BUN: 16.0 Creatinine Lvl (s): 1.28 EKG No qualifying data available. Assessment/Plan STEMI S/p PCI to RCA Intermittent CHB in the setting of RCA disease, resolved Mobitz type I block Ischemic cardiomyopathy with EF 20 to 25% with mild exacerbation SUSAN, improving Type 2 diabetes mellitus Lower GI bleed s/p recent EGD & colonoscopy AUDRA, received IV iron replacement Plan: - Continues to diurese well, FP net negative around 7 L since admission, appears euvolemic, changing to Lasix per oral 20 twice daily - Denies any ongoing chest pain - On DAPT with aspirin and Plavix, had an episode of hematochezia today, consulted GI - Telemetry reviewed showing showing few episodes of sinus tach with no episodes of AV block noted overnight, increased Toprol to 25 daily - He has reduced EF, on GDMT with Toprol, losartan, Jardiance and spironolactone - Ordered repeat limited echo order to evaluate for EF, pending - Had another episode of hematochezia today, consulted GI, requested EGD colonoscopy reports from [facility] prior - He is a former smoker wheezing on exam, could be having underlying undiagnosed COPD, started on BiPAP and DuoNebs - Iron panel consistent with iron deficiency anemia, started on IV iron replacement - D Dimer not elevated, venous duplex ultrasounds negative for DVT - Patient presented from [facility] in [place], pending GI recommendations, he can be discharged to the same facility per case management Digitally Signed by ARMANDO BAÑUELOS MD on 01/09/2025 01:54 PM [facility] 01-09-2025 Cardiology Progre ss note Subjective Patient seen and examined bedside this morning. Denies any new concerns. Stated he is feeling much better. Telemetry reviewed showing few episodes of sinus tach, tolerated Toprol. Had an episode of hematochezia, consulting GI. Objective Vitals and Measurements T: 36.5 C (Oral) TMIN: 36.5 C (Oral) TMAX: 36.8 C (Oral) HR: 79 (Monitored) RR: 18 BP: 102/52 SpO2: 98% Intake and Output Last 24 hours Intake Medication 6.50 Oral Intake 640.00 Output Urine Voided 1800.00 Stool Count 5.00 Urine Count 2.00 Total Summary Total Intake 646.50 Total Output 1800.00 Fluid Balance -1153.50 Physical Exam General: Appears stated age and in no acute distress Neck: JVD elevated Lungs: Bibasilar crackles with wheezing Cardiac: Regular rhythm with normal S1-S2 Extremities: Mild pitting edema bilaterally Weight Dosing Weight: 98.4 kg (01/03/25) Medications Medications (27) Active Scheduled: (12) aspirin 81 mg EC 81 mg 1 tab(s), Oral, Daily atorvastatin 40 mg tablet 40 mg 1 tab(s), Oral, qDay clopidogrel 75 mg Tablet 75 mg 1 tab(s), Oral, qDay empagliflozin 10 mg tablet 10 mg 1 tab(s), Oral, qAM fluoxetine 20 mg Capsule 40 mg 2 cap(s), Oral, qDay furosemide 20 mg tablet 20 mg 1 tab(s), Oral, BID insulin lispro 100 units/mL Soln (3 mL) Give 0-5 units/dose, Subcutaneous, TIDAC levothyroxine 25 mcg tablet 25 mcg 1 tab(s), Oral, qDay losartan 25 mg tablet 25 mg 1 tab(s), Oral, qDay metoprolol succinate 25 mg ER tablet 25 mg 1 tab(s), Oral, qDay pantoprazole 40 mg EC tablet 40 mg 1 tab(s), Oral, qDayAC spironolactone 5 mg /1 mL 2.5 mL Susp ORAL syringe CMPD 12.5 mg 2.5 mL, Oral, qDayM Continuous: (2) heparin 25,000 unit(s) + Dextrose 5% Premix Diluent 250 mL 250 mL, Intravenous, 10 mL/hr NS (0.9% nacl) 1,000 mL 1,000 mL, Intravenous, 125 mL/hr PRN: (13) albuterol - ipratropium 2.5 mg-0.5 mg/3 mL Inhal Odalis UD 3 mL, Inhalation, q4hRT dextrose 50% Solution Disp syringe 50 mL 25 gram(s) 50 mL, IV Push, AsDirected heparin 5,000 units/mL (1 mL) vial 4,000 unit(s) 0.8 mL, IV Push, q6h magnesium sulfate 4 gram(s)/100mL PMX 4 g 100 mL, IV Piggyback, AsDirected magnesium sulfate 50% (500mg/mL) 6 g 12 mL, IV Piggyback, AsDirected magnesium sulfate PMX 2 g 50 mL, IV Piggyback, AsDirected melatonin 5 mg tablet 5 mg 1 tab(s), Oral, qHS nitroglycerin 0.4 mg Tablet (25/btl) 0.4 mg 1 tab(s), Sublingual, q5min potassium chloride (PMX) 20 mEq/100 mL 20 mEq 100 mL, IV Piggyback, AsDirected potassium chloride 20 mEq ER tablet 20 mEq 1 tab(s), Oral, AsDirected potassium chloride 20 mEq ER tablet 40 mEq 2 tab(s), Oral, AsDirected potassium chloride 20 mEq ER tablet 40 mEq 2 tab(s), Oral, AsDirected trimethobenzamide 200 mg/2 mL Solution 200 mg 2 mL, Intramuscular, q6h Lab Results 01/09 03:50 WBC: 5.8 Hgb: 10.9 L Hct: 33.1 L Platelet: 150 Neutrophil %: 66.9 Glucose Level: 103 Sodium Level: 141 Potassium Level: 3.3 L BUN: 12.0 Creatinine Lvl (s): 1.30 01/08 02:16 WBC: 5.7 Hgb: 10.6 L Hct: 31.9 L Platelet: 143 L Neutrophil %: 71.4 Glucose Level: 110 Sodium Level: 141 Potassium Level: 3.2 L BUN: 16.0 Creatinine Lvl (s): 1.28 EKG No qualifying data available. Assessment/Plan STEMI S/p PCI to RCA Intermittent CHB in the setting of RCA disease, resolved Mobitz type I block Ischemic cardiomyopathy with EF 20 to 25% with mild exacerbation SUSAN, improving Type 2 diabetes mellitus Lower GI bleed s/p recent EGD & colonoscopy AUDRA, received IV iron replacement Plan: - Continues to diurese well, FP net negative around 7 L since admission, appears euvolemic, changing to Lasix per oral 20 twice daily - Denies any ongoing chest pain - On DAPT with aspirin and Plavix, had an episode of hematochezia today, consulted GI - Telemetry reviewed showing showing few episodes of sinus tach with no episodes of AV block noted overnight, increased Toprol to 25 daily - He has reduced EF, on GDMT with Toprol, losartan, Jardiance and spironolactone - Ordered repeat limited echo order to evaluate for EF, pending - Had another episode of hematochezia today, consulted GI, requested EGD colonoscopy reports from [facility] prior - He is a former smoker wheezing on exam, could be having underlying undiagnosed COPD, started on BiPAP and DuoNebs - Iron panel consistent with iron deficiency anemia, started on IV iron replacement - D Dimer not elevated, venous duplex ultrasounds negative for DVT - Patient presented from SNF in [place], pending GI recommendations, he can be discharged to the same facility per case management Digitally Signed by ARMANDO BAÑUELOS MD on 01/09/2025 01:54 PM [facility] 01-09-2025 Note Exam Date Time Procedure Performing Provider Status 01/09/25 12:16 PM Echocardiogram, Adult - CV LOS BRUNO MD; Auth (Verified) [id number] Cardiology Progress note Subjective Patient seen and examined bedside this morning. Denies any new concerns. Stated he feels much better in regards to his breathing. Reviewed telemetry, continues to have prolonged PA with Mobitz type Iblock intermittent A. tach episodes noted. No DVT on venous duplex. Objective Vitals and Measurements T: 36.6 C (Oral) TMIN: 36.4 C (Axillary) TMAX: 37.5 C (Oral) HR: 91 (Monitored) RR: 18 BP: 127/70 SpO2: 97% Intake and Output Last 24 hours Intake Medication 126.50 Oral Intake 800.00 Supplement Intake 240.00 Output Urine Voided 2450.00 Stool Count 1.00 Urine Count 1.00 Emesis Count 0.00 Total Summary Total Intake 1166.50 Total Output 2450.00 Fluid Balance -1283.50 Physical Exam General: Appears stated age and in no acute distress Neck: JVD elevated Lungs: Bibasilar crackles with wheezing Cardiac: Regular rhythm with normal S1-S2 Extremities: Mild pitting edema bilaterally Weight Dosing Weight: 98.4 kg (01/03/25) Medications Medications (27) Active Scheduled: (12) aspirin 81 mg EC 81 mg 1 tab(s), Oral, Daily atorvastatin 40 mg tablet 40 mg 1 tab(s), Oral, qDay clopidogrel 75 mg Tablet 75 mg 1 tab(s), Oral, qDay empagliflozin 10 mg tablet 10 mg 1 tab(s), Oral, qAM fluoxetine 20 mg Capsule 40 mg 2 cap(s), Oral, qDay furosemide 20 mg/2 mL vial 20 mg 2 mL, IV Push, BID insulin lispro 100 units/mL Soln (3 mL) Give 0-5 units/dose, Subcutaneous, TIDAC levothyroxine 25 mcg tablet 25 mcg 1 tab(s), Oral, qDay losartan 25 mg tablet 25 mg 1 tab(s), Oral, qDay metoprolol succinate 25 mg ER tablet 12.5 mg 0.5 tab(s), Oral, qDay pantoprazole 40 mg EC tablet 40 mg 1 tab(s), Oral, qDayAC spironolactone 5 mg /1 mL 2.5 mL Susp ORAL syringe CMPD 12.5 mg 2.5 mL, Oral, qDayM Continuous: (2) heparin 25,000 unit(s) + Dextrose 5% Premix Diluent 250 mL 250 mL, Intravenous, 10 mL/hr NS (0.9% nacl) 1,000 mL 1,000 mL, Intravenous, 125 mL/hr PRN: (13) albuterol - ipratropium 2.5 mg-0.5 mg/3 mL Inhal Odalis UD 3 mL, Inhalation, q4hRT dextrose 50% Solution Disp syringe 50 mL 25 gram(s) 50 mL, IV Push, AsDirected heparin 5,000 units/mL (1 mL) vial 4,000 unit(s) 0.8 mL, IV Push, q6h magnesium sulfate 4 gram(s)/100mL PMX 4 g 100 mL, IV Piggyback, AsDirected magnesium sulfate 50% (500mg/mL) 6 g 12 mL, IV Piggyback, AsDirected magnesium sulfate PMX 2 g 50 mL, IV Piggyback, AsDirected melatonin 5 mg tablet 5 mg 1 tab(s), Oral, qHS nitroglycerin 0.4 mg Tablet (25/btl) 0.4 mg 1 tab(s), Sublingual, q5min potassium chloride (PMX) 20 mEq/100 mL 20 mEq 100 mL, IV Piggyback, AsDirected potassium chloride 20 mEq ER tablet 20 mEq 1 tab(s), Oral, AsDirected potassium chloride 20 mEq ER tablet 40 mEq 2 tab(s), Oral, AsDirected potassium chloride 20 mEq ER tablet 40 mEq 2 tab(s), Oral, AsDirected trimethobenzamide 200 mg/2 mL Solution 200 mg 2 mL, Intramuscular, q6h Lab Results 01/08 02:16 WBC: 5.7 Hgb: 10.6 L Hct: 31.9 L Platelet: 143 L Neutrophil %: 71.4 Glucose Level: 110 Sodium Level: 141 Potassium Level: 3.2 L BUN: 16.0 Creatinine Lvl (s): 1.28 01/07 05:48 WBC: 5.8 Hgb: 10.3 L Hct: 31.5 L Platelet: 134 L Neutrophil %: 78.2 H Glucose Level: 120 H Sodium Level: 137 Potassium Level: 3.5 BUN: 18.0 Creatinine Lvl (s): 1.40 EKG EKG - Completed -- 01/06/25 9:52:00 EDT EKG - Completed -- 01/06/25 11:37:00 EDT Assessment/Plan STEMI S/p PCI to RCA Intermittent CHB in the setting of RCA disease, resolved Mobitz type I block Ischemic cardiomyopathy with EF 20 to 25% with mild exacerbation SUSAN, improving Type 2 diabetes mellitus Lower GI bleed s/p recent EGD & colonoscopy AUDRA on replacement Plan: - Continues to diurese well with net negative around 5.5 L since admission currently on Lasix 20 IVtwice daily, continue same for today, will reassess tomorrow - Denies any ongoing chest pain - On DAPT with aspirin and Plavix, tolerating well, no melena or hematochezia overnight - Telemetry reviewed showing prolonged PA with Mobitz type I and with intermittent A. tach episodes, spoke to EP fellow advised to start on low-dose beta-jeffrey, and started on medical succinate 12.5 mg daily, will uptitrate as he tolerates. - He has reduced EF, on GDMT with Toprol, losartan, Jardiance and spironolactone - Repeat limited echo order to evaluate for EF - Awaiting records from [facility] for EGD and colonoscopy - He is a former smoker wheezing on exam, could be having underlying undiagnosed COPD, started on BiPAP and DuoNebs - Iron panel consistent with iron deficiency anemia, started on IV iron replacement - D Dimer not elevated, venous duplex ultrasounds negative for DVT Digitally Signed by ARMANDO BAÑUELOS MD on 01/08/2025 02:21 PM [id number] Cardiology Progress note Subjective Patient seen and examined bedside this morning. Denies any new concerns. Stated he feels much better in regards to his breathing. Reviewed telemetry, continues to have prolonged PA with Mobitz type Iblock intermittent A. tach episodes noted. No DVT on venous duplex. Objective Vitals and Measurements T: 36.6 C (Oral) TMIN: 36.4 C (Axillary) TMAX: 37.5 C (Oral) HR: 91 (Monitored) RR: 18 BP: 127/70 SpO2: 97% Intake and Output Last 24 hours Intake Medication 126.50 Oral Intake 800.00 Supplement Intake 240.00 Output Urine Voided 2450.00 Stool Count 1.00 Urine Count 1.00 Emesis Count 0.00 Total Summary Total Intake 1166.50 Total Output 2450.00 Fluid Balance -1283.50 Physical Exam General: Appears stated age and in no acute distress Neck: JVD elevated Lungs: Bibasilar crackles with wheezing Cardiac: Regular rhythm with normal S1-S2 Extremities: Mild pitting edema bilaterally Weight Dosing Weight: 98.4 kg (01/03/25) Medications Medications (27) Active Scheduled: (12) aspirin 81 mg EC 81 mg 1 tab(s), Oral, Daily atorvastatin 40 mg tablet 40 mg 1 tab(s), Oral, qDay clopidogrel 75 mg Tablet 75 mg 1 tab(s), Oral, qDay empagliflozin 10 mg tablet 10 mg 1 tab(s), Oral, qAM fluoxetine 20 mg Capsule 40 mg 2 cap(s), Oral, qDay furosemide 20 mg/2 mL vial 20 mg 2 mL, IV Push, BID insulin lispro 100 units/mL Soln (3 mL) Give 0-5 units/dose, Subcutaneous, TIDAC levothyroxine 25 mcg tablet 25 mcg 1 tab(s), Oral, qDay losartan 25 mg tablet 25 mg 1 tab(s), Oral, qDay metoprolol succinate 25 mg ER tablet 12.5 mg 0.5 tab(s), Oral, qDay pantoprazole 40 mg EC tablet 40 mg 1 tab(s), Oral, qDayAC spironolactone 5 mg /1 mL 2.5 mL Susp ORAL syringe CMPD 12.5 mg 2.5 mL, Oral, qDayM Continuous: (2) heparin 25,000 unit(s) + Dextrose 5% Premix Diluent 250 mL 250 mL, Intravenous, 10 mL/hr NS (0.9% nacl) 1,000 mL 1,000 mL, Intravenous, 125 mL/hr PRN: (13) albuterol - ipratropium 2.5 mg-0.5 mg/3 mL Inhal Odalis UD 3 mL, Inhalation, q4hRT dextrose 50% Solution Disp syringe 50 mL 25 gram(s) 50 mL, IV Push, AsDirected heparin 5,000 units/mL (1 mL) vial 4,000 unit(s) 0.8 mL, IV Push, q6h magnesium sulfate 4 gram(s)/100mL PMX 4 g 100 mL, IV Piggyback, AsDirected magnesium sulfate 50% (500mg/mL) 6 g 12 mL, IV Piggyback, AsDirected magnesium sulfate PMX 2 g 50 mL, IV Piggyback, AsDirected melatonin 5 mg tablet 5 mg 1 tab(s), Oral, qHS nitroglycerin 0.4 mg Tablet (25/btl) 0.4 mg 1 tab(s), Sublingual, q5min potassium chloride (PMX) 20 mEq/100 mL 20 mEq 100 mL, IV Piggyback, AsDirected potassium chloride 20 mEq ER tablet 20 mEq 1 tab(s), Oral, AsDirected potassium chloride 20 mEq ER tablet 40 mEq 2 tab(s), Oral, AsDirected potassium chloride 20 mEq ER tablet 40 mEq 2 tab(s), Oral, AsDirected trimethobenzamide 200 mg/2 mL Solution 200 mg 2 mL, Intramuscular, q6h Lab Results 01/08 02:16 WBC: 5.7 Hgb: 10.6 L Hct: 31.9 L Platelet: 143 L Neutrophil %: 71.4 Glucose Level: 110 Sodium Level: 141 Potassium Level: 3.2 L BUN: 16.0 Creatinine Lvl (s): 1.28 01/07 05:48 WBC: 5.8 Hgb: 10.3 L Hct: 31.5 L Platelet: 134 L Neutrophil %: 78.2 H Glucose Level: 120 H Sodium Level: 137 Potassium Level: 3.5 BUN: 18.0 Creatinine Lvl (s): 1.40 EKG EKG - Completed -- 01/06/25 9:52:00 EDT EKG - Completed -- 01/06/25 11:37:00 EDT Assessment/Plan STEMI S/p PCI to RCA Intermittent CHB in the setting of RCA disease, resolved Mobitz type I block Ischemic cardiomyopathy with EF 20 to 25% with mild exacerbation SUSAN, improving Type 2 diabetes mellitus Lower GI bleed s/p recent EGD & colonoscopy AUDRA on replacement Plan: - Continues to diurese well with net negative around 5.5 L since admission currently on Lasix 20 IVtwice daily, continue same for today, will reassess tomorrow - Denies any ongoing chest pain - On DAPT with aspirin and Plavix, tolerating well, no melena or hematochezia overnight - Telemetry reviewed showing prolonged PA with Mobitz type I and with intermittent A. tach episodes, spoke to EP fellow advised to start on low-dose beta-jeffrey, and started on medical succinate 12.5 mg daily, will uptitrate as he tolerates. - He has reduced EF, on GDMT with Toprol, losartan, Jardiance and spironolactone - Repeat limited echo order to evaluate for EF - Awaiting records from [facility] for EGD and colonoscopy - He is a former smoker wheezing on exam, could be having underlying undiagnosed COPD, started on BiPAP and DuoNebs - Iron panel consistent with iron deficiency anemia, started on IV iron replacement - D Dimer not elevated, venous duplex ultrasounds negative for DVT Digitally Signed by ARMANDO BAÑUELOS MD on 01/08/2025 02:21 PM [id number] Card[facility] Progress note Subjective Patient seen and examined bedside this morning. Denies any new concerns. To be reviewed showing prolonged PA interval with Mobitz type I block. No bloody BM overnight. Hemoglobin stable overnight awaiting venous Dopplers. Objective Vitals and Measurements T: 36.9 C (Oral) TMIN: 36.5 C (Oral) TMAX: 36.9 C (Oral) HR: 77 (Monitored) RR: 20 BP: 132/80 SpO2:98% Intake and Output Last 24 hours Intake Medication 244.00 Oral Intake 770.00 Output Urine Voided 1800.00 Stool Count 1.00 Urine Count 3.00 Emesis Count 0.00 Total Summary Total Intake 1014.00 Total Output 1800.00 Fluid Balance -786.00 Physical Exam General: Appears stated age and in no acute distress Neck: JVD elevated Lungs: Bibasilar crackles with wheezing Cardiac: Regular rhythm with normal S1-S2 Extremities: Mild pitting edema bilaterally Weight Dosing Weight: 98.4 kg (01/03/25) Medications Medications (25) Active Scheduled: (10) aspirin 81 mg EC 81 mg 1 tab(s), Oral, Daily atorvastatin 40 mg tablet 40 mg 1 tab(s), Oral, qDay clopidogrel 75 mg Tablet 75 mg 1 tab(s), Oral, qDay empagliflozin 10 mg tablet 10 mg 1 tab(s), Oral, qAM fluoxetine 20 mg Capsule 40 mg 2 cap(s), Oral, qDay furosemide 20 mg/2 mL vial 20 mg 2 mL, IV Push, BID insulin lispro 100 units/mL Soln (3 mL) Give 0-5 units/dose, Subcutaneous, TIDAC levothyroxine 25 mcg tablet 25 mcg 1 tab(s), Oral, qDay pantoprazole 40 mg EC tablet 40 mg 1 tab(s), Oral, qDayAC sodium ferric gluconate complex 250 mg 20 mL, IV Piggyback, qDay Continuous: (2) heparin 25,000 unit(s) + Dextrose 5% Premix Diluent 250 mL 250 mL, Intravenous, 10 mL/hr NS (0.9% nacl) 1,000 mL 1,000 mL, Intravenous, 125 mL/hr PRN: (13) albuterol - ipratropium 2.5 mg-0.5 mg/3 mL Inhal Odalis UD 3 mL, Inhalation, q4hRT dextrose 50% Solution Disp syringe 50 mL 25 gram(s) 50 mL, IV Push, AsDirected heparin 5,000 units/mL (1 mL) vial 4,000 unit(s) 0.8 mL, IV Push, q6h magnesium sulfate 4 gram(s)/100mL PMX 4 g 100 mL, IV Piggyback, AsDirected magnesium sulfate 50% (500mg/mL) 6 g 12 mL, IV Piggyback, AsDirected magnesium sulfate PMX 2 g 50 mL, IV Piggyback, AsDirected melatonin 5 mg tablet 5 mg 1 tab(s), Oral, qHS nitroglycerin 0.4 mg Tablet (25/btl) 0.4 mg 1 tab(s), Sublingual, q5min potassium chloride (PMX) 20 mEq/100 mL 20 mEq 100 mL, IV Piggyback, AsDirected potassium chloride 20 mEq ER tablet 20 mEq 1 tab(s), Oral, AsDirected potassium chloride 20 mEq ER tablet 40 mEq 2 tab(s), Oral, AsDirected potassium chloride 20 mEq ER tablet 40 mEq 2 tab(s), Oral, AsDirected trimethobenzamide 200 mg/2 mL Solution 200 mg 2 mL, Intramuscular, q6h Lab Results 01/07 05:48 WBC: 5.8 Hgb: 10.3 L Hct: 31.5 L Platelet: 134 L Neutrophil %: 78.2 H Glucose Level: 120 H Sodium Level: 137 Potassium Level: 3.5 BUN: 18.0 Creatinine Lvl (s): 1.40 01/06 12:56 WBC: 9.7 Hgb: 10.9 L Hct: 34.0 L Platelet: 188 Neutrophil %: 86.9 H 01/06 04:19 WBC: 8.3 Hgb: 10.7 L Hct: 32.6 L Platelet: 167 Neutrophil %: 80.5 H Glucose Level: 131 H Sodium Level: 142 Potassium Level: 3.8 BUN: 18.0 Creatinine Lvl (s): 1.61 H EKG EKG - Completed -- 01/05/25 9:46:00 EDT EKG - Completed -- 01/05/25 14:39:00 EDT Assessment/Plan STEMI S/p PCI to RCA CHB in the setting of RCA disease, resolved Mobitz type I block Ischemic cardiomyopathy with EF 20 to 25% with mild exacerbation SUSNA, improving Type 2 diabetes mellitus Lower GI bleed s/p recent EGD & colonoscopy AUDRA on replacement Plan: - Diuresing well with UO overnight 1400 cc, currently on Lasix 20 IV twice daily, continue same fortoday, will reassess tomorrow - C/o intermittent mild CP, EKG no new changes, Trop elevated, but lower than prior - On DAPT with aspirin and Plavix, tolerating well, no bloody BM overnight, hemoglobin has been stable - Awaiting records from [facility] for EGD and colonoscopy - He is a former smoker wheezing on exam, could be having underlying undiagnosed COPD, started on BiPAP and DuoNebs - Iron panel consistent with iron deficiency anemia, started on IV iron replacement - D Dimer elevated, could also be form decreased renal clearance, pending B/L LE Venous duplex Digitally Signed by ARMANDO BAÑUELOS MD on 01/07/2025 12:14 PM Digitally Signed by ARMANDO BAÑUELOS MD on 01/07/2025 12:28 PM [facility] [id number] Note* Exam Date Time Procedure Performing Provider Status 01/07/25 4:15 PM VL Venous US/Doppler Both Legs(for DVT) MICHAEL SIMENTAL MD; Auth (Verified) [id number] Cardiology Progress note Subjective Patient seen and examined bedside this morning. Denies any new concerns. To be reviewed showing prolonged PA interval with Mobitz type I block. No bloody BM overnight. Hemoglobin stable overnight awaiting venous Dopplers. Objective Vitals and Measurements T: 36.9 C (Oral) TMIN: 36.5 C (Oral) TMAX: 36.9 C (Oral) HR: 77 (Monitored) RR: 20 BP: 132/80 SpO2:98% Intake and Output Last 24 hours Intake Medication 244.00 Oral Intake 770.00 Output Urine Voided 1800.00 Stool Count 1.00 Urine Count 3.00 Emesis Count 0.00 Total Summary Total Intake 1014.00 Total Output 1800.00 Fluid Balance -786.00 Physical Exam General: Appears stated age and in no acute distress Neck: JVD elevated Lungs: Bibasilar crackles with wheezing Cardiac: Regular rhythm with normal S1-S2 Extremities: Mild pitting edema bilaterally Weight Dosing Weight: 98.4 kg (01/03/25) Medications Medications (25) Active Scheduled: (10) aspirin 81 mg EC 81 mg 1 tab(s), Oral, Daily atorvastatin 40 mg tablet 40 mg 1 tab(s), Oral, qDay clopidogrel 75 mg Tablet 75 mg 1 tab(s), Oral, qDay empagliflozin 10 mg tablet 10 mg 1 tab(s), Oral, qAM fluoxetine 20 mg Capsule 40 mg 2 cap(s), Oral, qDay furosemide 20 mg/2 mL vial 20 mg 2 mL, IV Push, BID insulin lispro 100 units/mL Soln (3 mL) Give 0-5 units/dose, Subcutaneous, TIDAC levothyroxine 25 mcg tablet 25 mcg 1 tab(s), Oral, qDay pantoprazole 40 mg EC tablet 40 mg 1 tab(s), Oral, qDayAC sodium ferric gluconate complex 250 mg 20 mL, IV Piggyback, qDay Continuous: (2) heparin 25,000 unit(s) + Dextrose 5% Premix Diluent 250 mL 250 mL, Intravenous, 10 mL/hr NS (0.9% nacl) 1,000 mL 1,000 mL, Intravenous, 125 mL/hr PRN: (13) albuterol - ipratropium 2.5 mg-0.5 mg/3 mL Inhal Odalis UD 3 mL, Inhalation, q4hRT dextrose 50% Solution Disp syringe 50 mL 25 gram(s) 50 mL, IV Push, AsDirected heparin 5,000 units/mL (1 mL) vial 4,000 unit(s) 0.8 mL, IV Push, q6h magnesium sulfate 4 gram(s)/100mL PMX 4 g 100 mL, IV Piggyback, AsDirected magnesium sulfate 50% (500mg/mL) 6 g 12 mL, IV Piggyback, AsDirected magnesium sulfate PMX 2 g 50 mL, IV Piggyback, AsDirected melatonin 5 mg tablet 5 mg 1 tab(s), Oral, qHS nitroglycerin 0.4 mg Tablet (25/btl) 0.4 mg 1 tab(s), Sublingual, q5min potassium chloride (PMX) 20 mEq/100 mL 20 mEq 100 mL, IV Piggyback, AsDirected potassium chloride 20 mEq ER tablet 20 mEq 1 tab(s), Oral, AsDirected potassium chloride 20 mEq ER tablet 40 mEq 2 tab(s), Oral, AsDirected potassium chloride 20 mEq ER tablet 40 mEq 2 tab(s), Oral, AsDirected trimethobenzamide 200 mg/2 mL Solution 200 mg 2 mL, Intramuscular, q6h Lab Results 01/07 05:48 WBC: 5.8 Hgb: 10.3 L Hct: 31.5 L Platelet: 134 L Neutrophil %: 78.2 H Glucose Level: 120 H Sodium Level: 137 Potassium Level: 3.5 BUN: 18.0 Creatinine Lvl (s): 1.40 01/06 12:56 WBC: 9.7 Hgb: 10.9 L Hct: 34.0 L Platelet: 188 Neutrophil %: 86.9 H 01/06 04:19 WBC: 8.3 Hgb: 10.7 L Hct: 32.6 L Platelet: 167 Neutrophil %: 80.5 H Glucose Level: 131 H Sodium Level: 142 Potassium Level: 3.8 BUN: 18.0 Creatinine Lvl (s): 1.61 H EKG EKG - Completed -- 01/05/25 9:46:00 EDT EKG - Completed -- 01/05/25 14:39:00 EDT Assessment/Plan STEMI S/p PCI to RCA CHB in the setting of RCA disease, resolved Mobitz type I block Ischemic cardiomyopathy with EF 20 to 25% with mild exacerbation SUSAN, improving Type 2 diabetes mellitus Lower GI bleed s/p recent EGD & colonoscopy AUDRA on replacement Plan: - Diuresing well with UO overnight 1400 cc, currently on Lasix 20 IV twice daily, continue same fortoday, will reassess tomorrow - C/o intermittent mild CP, EKG no new changes, Trop elevated, but lower than prior - On DAPT with aspirin and Plavix, tolerating well, no bloody BM overnight, hemoglobin has been stable - Awaiting records from [facility] for EGD and colonoscopy - He is a former smoker wheezing on exam, could be having underlying undiagnosed COPD, started on BiPAP and DuoNebs - Iron panel consistent with iron deficiency anemia, started on IV iron replacement - D Dimer elevated, could also be form decreased renal clearance, pending B/L LE Venous duplex Digitally Signed by ARMANDO BAÑUELOS MD on 01/07/2025 12:14 PM Digitally Signed by ARMANDO BAÑUELOS MD on 01/07/2025 12:28 PM [facility] [id number] Respiratory therapy Hospital Progress note Respiratory Therapy Evaluation Entered On: 01/06/2025 19:56 EDT Performed On: 01/06/2025 19:55 EDT by Melissa Olmstead Respiratory Therapy Evaluation Pulmonary Status : Non-smoker, no previous history Surgical Status : No surgery Chest X-Ray : Infiltrates or atelectasis in more than one lobe or rib fractures Respiratory Pattern (RT) : RR 21-25 BPM, Tachypnea Breath Sounds (RT) : Diminished due to poor inspiratory effort Cough (RT) : Strong, non-productive Level of Activity : Ambulatory Mental Status : Alert, oriented and cooperative Respiratory Therapy Evaluation Score : 5 RT Evaluation Steps : Chart review completed, Assessment completed: RR, HR, Auscultation, Cough, Patient Interview completed Respiratory Evaluation Triage Score : (0-5) Freq: Q4RT prn RT Assessment [Frequency/Schedule] : Triage score 0-5, modify scheduled medications to Q4hRT PRN Melissa Olmstead - 01/06/2025 19:55 EDT Digitally Signed by Melissa Olmstead on 01/06/2025 07:55 PM [facility] [id number] Note* Exam Date Time Procedure Performing Provider Status 01/06/25 11:41 AM Electrocardiogram - EKG - CV MIN MADRID MD; Auth (Verified) ECG Final Report SINUS RHYTHM SECOND DEG AVB, MOBITZ I (WENCKEBACH) LOW VOLTAGE, EXTREMITY LEADS REPOL ABNRM SUGGESTS ISCHEMIA, DIFFUSE LEADS ST ELEVATION, CONSIDER INFERIOR INJURY Probable posterior wall involvement PROLONGED QT INTERVAL Electronic Signature: MIN MADRID MD 01/07/2025 17:41:04 [facility] [id number] Note* Exam Date Time Procedure Performing Provider Status 01/06/25 11:20 AM XR Chest 1 View JIMMY FREGOSO MD; Sophy gao (Verified) [id number] ORIGINAL EXAMINATION: ONE XRAY VIEW OF THE CHEST 01/06/2025 11:21 am COMPARISON: January 05, 2025 HISTORY: ORDERING SYSTEM PROVIDED HISTORY: Reason for Exam: pul edema FINDINGS: The heart is normal in size and there is no vascular congestion present. Electronic device overlies the central right lung. No definite infiltrate is present. There is bilateral pleural thickening. No definite pleural fluid. Postoperative change cervical spine and left shoulder. IMPRESSION: No acute finding. Interpreted by: Jimmy Fregoso MD Preliminary Report By: Jimmy Fregoso MD Electronically signed By Jimmy Fregoso MD Dictated Date: 01/06/2025 11:25:53 AM Prelim Date: 01/06/2025 11:26:21 AM Sign Date: 01/06/2025 11:26:21 AM Ordering Provider: ARMANDO BAÑUELOS [facility] [id number] History and physical note Date of Service 01/03/2025 Chief Complaint Chest pain History of Present Illness 79-year-old male past medical history of CAD with multiple PCI, hypertension, hyperlipidemia, diabetes, hypothyroidism, heart failure who was transferred from [facility] for complete heart block requiring EP evaluation. Patient states he had an abnormal stress test and was sent for a left heart cath on 11/27/2024 had 2 stents placed the following day he had some chest pain and shortness of breath underwent another left heart cath had an in-stent thrombosis. On December 12, 2024 he was at a family function when he had the similar left-sided chest pain he underwent a third cardiac cath no stents were placed at that time. Patient is been feeling well describes having chronic left-sided chest pain nonradiating intermittently that has not resolved since stent placements. He was called for complete heart block seen on Holter monitor and presented to [facility] subsequently. Patient denies any dyspnea on exertion, orthopnea, PND, lower extremity edema, or palpitations. Patient is in sinus rhythm with occasional ectopic atrial arrhythmia. On admission troponin 7K EKG showing mild ST elevation in lead II, [address] depression in leads V1 to V4 may be chronic from priorMI. Review of Systems Same as HPI Physical Exam Vitals and Measurements HR: 95 (Monitored) RR: 21 BP: 139/91 SpO2: 97% HT: 175.3 cm WT: 98.4 kg BMI: 32.02 Weight Dosing Weight: 98.4 kg (01/03/25) General Appearance: Patient comfortably lying on bed, not in acute distress Head: Normocephalic, atraumatic EENT: PERRLA Neck: supple, no JVD, no mass Cardiac: s1s2,RRR, no murmurs or rubs or gallops Lungs: clear to auscultation bilaterally, no wheeze or rhonchi or crackles Abdomen: soft , Nontender, no organomegaly, bowel sounds heard Musculoskeletal: no gross deformities Extremities: no rash or ulcers or pedal edema Neurological: alert, oriented x 3 Skin: no rash or ulcers Lab Results 01/03 20:38 WBC: 6.7 Hgb: 10.7 L Hct: 33.2 L Platelet: 154 Neutrophil %: 72.3 Glucose Level: 134 H Sodium Level: 143 Potassium Level: 4.5 BUN: 13.0 Creatinine Lvl (s): 1.44 H Assessment/Plan 79-year-old male past medical history of CAD with multiple PCI, hypertension, hyperlipidemia, diabetes, hypothyroidism, heart failure who was transferred from [facility] for complete heart block requiring EP evaluation. Complete heart block Patient has a Holter monitor, notified for CHB> initially not in CHB overnight. Now in CHB Hold beta-blockers EP consult in a.m. STEMI CAD with PCI History of CAD with recent PCI and stent thrombosis in the past couple weeks (no records available) Troponin 7K> proBNP 4K EKG showing ST elevation in lead II and III (likely from prior mi) with reciprocal ST depression inV1-V4> discussed with interventional cardiology patient's chest pain has improved troponin down trended we will proceed with left heart cath in a.m. Start heparin drip Continue with aspirin and ticagrelor Heart failure Unknown EF, seems to have reduced EF from medication history with GDMT Echocardiogram GDMT: Patient is on Lasix 40, Jardiance 10 mg, Aldactone Lactic acidosis Lactate 3.5 likely in the setting of demand ischemia with chronotropic response> cleared SUSAN Creatinine 1.4 Unknown baseline Diabetes ISS Problem List/Past Medical History Ongoing Chest pain Kidney disease Sleep apnea TIA (transient ischemic attack) Type 2 diabetes mellitus Procedure/Surgical History Tonsillectomy percutaneous coronary angioplasty Prostatectomy planned Herniorrhaphy Medications Home Medications (26) Active acetaminophen 325 mg oral tablet 650 mg = 2 tab(s), Oral, q4h acetaminophen-hydrocodone 325 mg-5 mg oral tablet 1 tab(s), Oral, TID amLODIPine 5 mg oral tablet 5 mg = 1 tab(s), Oral, qDay aspirin 81 mg oral delayed release tablet 81 mg = 1 tab(s), Oral, Daily atorvastatin 40 mg, Oral, qDay cetirizine 5 mg oral tablet 5 mg = 1 tab(s), Oral, qDay cholecalciferol 25 mcg (1000 intl units) oral tablet 25 mcg = 1 tab(s), Oral, Daily doxycycline hyclate 100 mg oral capsule 100 mg = 1 cap(s), Oral, BID empagliflozin 10 mg oral tablet 10 mg = 1 tab(s), Oral, qAM FLUoxetine 40 mg, Oral, qDay furosemide 40 mg oral tablet 40 mg = 1 tab(s), Oral, Every other day insulin degludec 100 units/mL 3 mL subcutaneous solution , Subcutaneous, qDay lactobacillus rhamnosus GG , qDay levothyroxine 25 mcg (0.025 mg) oral tablet 25 mcg = 1 tab(s), Oral, qDay magnesium oxide 400 mg oral tablet 400 mg = 1 tab(s), Oral, qDay metoprolol succinate 25 mg oral TABLET extended release 25 mg = 1 tab(s), Oral, qDay mineral oil/petrolatum/phenylephrine 14%-71.9%-0.25% rectal ointment 1 tuan, Rectal, BID mirtazapine 15 mg oral tablet 15 mg = 1 tab(s), Oral, qHS nitroglycerin 0.4 mg sublingual tablet 0.4 mg = 1 tab(s), PRN, Sublingual, q5min ondansetron 4 mg oral tablet, disintegrating 4 mg = 1 tab(s), PRN, Oral, q6h pantoprazole 40 mg oral enteric coated tablet 40 mg = 1 tab(s), Oral, qDayAC Potassium Chloride (Eqv-K-Tab) 10 mEq oral tablet, extended release 10 mEq = 1 tab(s), Oral, BID promethazine 25 mg oral tablet 12.5 mg = 0.5 tab(s), PRN, Oral, q6h ranolazine 500 mg oral tablet, extended release 500 mg = 1 tab(s), Oral, BID spironolactone 25 mg oral tablet 25 mg = 1 tab(s), Oral, qDay ticagrelor 90 mg oral tablet 90 mg = 1 tab(s), Oral, BID Allergies NKA Social History Alcohol Use: Never., 01/03/2025 Home/Environment Living situation: Extended Care Facility., 01/03/2025 Substance Abuse Use: Never., 01/03/2025 Tobacco Nicotine Use: Former smoker, quit more than 30 days ago., 01/03/2025 Immunizations No qualifying data available. Code Status Code Status - Ordered -- 01/03/25 20:34:00 EDT, Full Code, Constant Order Digitally Signed by ISREAL JACKSON MD on 01/04/2025 09:30 AM [id number] Note* Exam Date Time Procedure Performing Provider Status 01/06/25 10:05 AM Electrocardiogram - EKG - CV MIN MADRID MD; Auth (Verified) ECG Final Report AV Dissociation CONSIDER CHB NONSPECIFIC INTRAVENTRICULAR CONDUCTION DELAY INFERIOR INFARCT, ACUTE (LCX) Electronic Signature: MIN MADRID MD 01/07/2025 17:45:03 [facility] [id number] Note* Exam Date Time Procedure Performing Provider Status 01/05/25 8:24 PM Echocardiogram, Adult - CV GUSTABO CORONADO MD; Auth (Verified) [id number] Note* Exam Date Time Procedure Performing Provider Status 01/05/25 2:44 PM Electrocardiogram - EKG - CV GOP BRITTON PINZON MD; Auth (Verified) ECG Final Report SINUS RHYTHM PROLONGED PA INTERVAL NONSPECIFIC INTRAVENTRICULAR CONDUCTION DELAY LOW VOLTAGE, EXTREMITY LEADS REPOL ABNRM SUGGESTS ISCHEMIA, DIFFUSE LEADS ACUTE INFERIOR INFACRT Electronic Signature: BRITTON LEDEZMA MD 01/06/2025 18:58:38 [facility] [id number] Note Date of Service 01/05/2025 Subjective Patient remained asymptomatic over the past 24 hours. He went for left heart catheterization and received a stent to RCA. No episode of palpitations, lightheadedness or dizziness. Objective Vitals and Measurements T: 36.7 C (Oral) TMIN: 36.5 C (Oral) TMAX: 36.8 C (Oral) HR: 52 (Monitored) RR: 20 BP: 110/66 SpO2:95% Intake and Output Last 24 hours Intake Medication 100.00 Oral Intake 220.00 Output Urine Voided 1050.00 Total Summary Total Intake 320.00 Total Output 1050.00 Fluid Balance -730.00 Physical Exam General Appearance: Patient comfortably lying on bed, not in acute distress Head: Normocephalic, atraumatic EENT: PERRLA, Neck: Supple, no JVD, no mass Cardiac: s1s2,RRR, no murmurs or rubs or gallops Lungs: Clear to auscultation bilaterally, no wheeze or rhonchi or crackles Abdomen: Soft , Nontender, no organomegaly, bowel sounds heard Musculoskeletal: Full ROM , no gross deformities Extremities: No rash or ulcers or pedal edema Neurological: Alert, oriented x 3, grossly no focal neurological deficits Skin: No rash or ulcers Weight Dosing Weight: 98.4 kg (01/03/25) Medications Medications (23) Active Scheduled: (10) aspirin 81 mg EC 81 mg 1 tab(s), Oral, Daily atorvastatin 40 mg tablet 40 mg 1 tab(s), Oral, qDay empagliflozin 10 mg tablet 10 mg 1 tab(s), Oral, qAM fluoxetine 20 mg Capsule 40 mg 2 cap(s), Oral, qDay furosemide 40 mg tablet 40 mg 1 tab(s), Oral, Every other day insulin lispro 100 units/mL Soln (3 mL) Give 0-5 units/dose, Subcutaneous, TIDAC levothyroxine 25 mcg tablet 25 mcg 1 tab(s), Oral, qDay No metformin for 48 hrs post contrast 1 EA, Miscellaneous, Daily pantoprazole 40 mg EC tablet 40 mg 1 tab(s), Oral, qDayAC ticagrelor 90 mg tablet 90 mg 1 tab(s), Oral, BID Continuous: (2) heparin 25,000 unit(s) + Dextrose 5% Premix Diluent 250 mL 250 mL, Intravenous, 10 mL/hr NS (0.9% nacl) 1,000 mL 1,000 mL, Intravenous, 125 mL/hr PRN: (11) albuterol - ipratropium 2.5 mg-0.5 mg/3 mL Inhal Odalis UD 3 mL, Inhalation, q6hRT dextrose 50% Solution Disp syringe 50 mL 25 gram(s) 50 mL, IV Push, AsDirected heparin 5,000 units/mL (1 mL) vial 4,000 unit(s) 0.8 mL, IV Push, q6h magnesium sulfate 4 gram(s)/100mL PMX 4 g 100 mL, IV Piggyback, AsDirected magnesium sulfate 50% (500mg/mL) 6 g 12 mL, IV Piggyback, AsDirected magnesium sulfate PMX 2 g 50 mL, IV Piggyback, AsDirected nitroglycerin 0.4 mg Tablet (25/btl) 0.4 mg 1 tab(s), Sublingual, q5min potassium chloride (PMX) 20 mEq/100 mL 20 mEq 100 mL, IV Piggyback, AsDirected potassium chloride 20 mEq ER tablet 20 mEq 1 tab(s), Oral, AsDirected potassium chloride 20 mEq ER tablet 40 mEq 2 tab(s), Oral, AsDirected potassium chloride 20 mEq ER tablet 40 mEq 2 tab(s), Oral, AsDirected Lab Results 01/05 03:11 WBC: 7.1 Hgb: 10.5 L Hct: 32.1 L Platelet: 171 Neutrophil %: 77.9 H Glucose Level: 175 H Sodium Level: 141 Potassium Level: 4.2 BUN: 15.0 Creatinine Lvl (s): 1.47 H 01/04 05:55 WBC: 5.2 Hgb: 9.8 L Hct: 30.1 L Platelet: 132 L Neutrophil %: 69.7 Glucose Level: 131 H Sodium Level: 142 Potassium Level: 3.7 BUN: 13.0 Creatinine Lvl (s): 1.34 EKG Electrocardiogram (EKG) - InProcess -- 01/04/25 13:19:00 EDT, Post-procedure, Complete by Nursing Electrocardiogram (EKG) - InProcess -- 01/05/25 5:22:00 EDT Electrocardiogram (EKG) - InProcess -- 01/05/25 9:46:00 EDT Assessment/Plan Intermittent complete heart block Inferior STEMI CAD status post recent PCI Hypertension Hyperlipidemia Diabetes mellitus Hypothyroidism Patient has findings consistent with ischemia of RCA. Possible etiology of CHB. No episode of heartblock over the past 24 hours. Patient's received revascularization with RCA stent. Discontinue or hold off beta-blockers for now. Monitor the heart rhythm. Replete electrolytes with target magnesium 2 and potassium 4. Digitally Signed by KEREN WARNER MD on 01/05/2025 11:25 AM [id number] Note* Exam Date Time Procedure Performing Provider Status 01/05/25 2:02 PM XR Chest 1 View SALLY THRASHER MD; Aut h (Verified) [id number] ORIGINAL EXAMINATION: ONE XRAY VIEW OF THE CHEST 01/05/2025 2:03 pm COMPARISON: 01/03/2025. HISTORY: ORDERING SYSTEM PROVIDED HISTORY: Reason for Exam: shortness of breath FINDINGS: No focal consolidation, pleural effusion, or pneumothorax IMPRESSION: No acute findings, unchanged exam Interpreted by: Sally Thrasher Preliminary Report By: Sally Thrasher Electronically signed By Sally Thrasher Dictated Date: 01/05/2025 2:08:29 PM Prelim Date: 01/05/2025 2:09:48 PM Sign Date: 01/05/2025 2:09:48 PM Ordering Provider: COREY PETERSON [id number] Note Date of Service 01/05/2025 Subjective Patient remained asymptomatic over the past 24 hours. He went for left heart catheterization and received a stent to RCA. No episode of palpitations, lightheadedness or dizziness. Objective Vitals and Measurements T: 36.7 C (Oral) TMIN: 36.5 C (Oral) TMAX: 36.8 C (Oral) HR: 52 (Monitored) RR: 20 BP: 110/66 SpO2: 95% Intake and Output Last 24 hours Intake Medication 100.00 Oral Intake 220.00 Output Urine Voided 1050.00 Total Summary Total Intake 320.00 Total Output 1050.00 Fluid Balance -730.00 Physical Exam General Appearance: Patient comfortably lying on bed, not in acute distress Head: Normocephalic, atraumatic EENT: PERRLA, Neck: Supple, no JVD, no mass Cardiac: s1s2,RRR, no murmurs or rubs or gallops Lungs: Clear to auscultation bilaterally, no wheeze or rhonchi or crackles Abdomen: Soft , Nontender, no organomegaly, bowel sounds heard Musculoskeletal: Full ROM , no gross deformities Extremities: No rash or ulcers or pedal edema Neurological: Alert, oriented x 3, grossly no focal neurological deficits Skin: No rash or ulcers Weight Dosing Weight: 98.4 kg (01/03/25) Medications Medications (23) Active Scheduled: (10) aspirin 81 mg EC 81 mg 1 tab(s), Oral, Daily atorvastatin 40 mg tablet 40 mg 1 tab(s), Oral, qDay empagliflozin 10 mg tablet 10 mg 1 tab(s), Oral, qAM fluoxetine 20 mg Capsule 40 mg 2 cap(s), Oral, qDay furosemide 40 mg tablet 40 mg 1 tab(s), Oral, Every other day insulin lispro 100 units/mL Soln (3 mL) Give 0-5 units/dose, Subcutaneous, TIDAC levothyroxine 25 mcg tablet 25 mcg 1 tab(s), Oral, qDay No metformin for 48 hrs post contrast 1 EA, Miscellaneous, Daily pantoprazole 40 mg EC tablet 40 mg 1 tab(s), Oral, qDayAC ticagrelor 90 mg tablet 90 mg 1 tab(s), Oral, BID Continuous: (2) heparin 25,000 unit(s) + Dextrose 5% Premix Diluent 250 mL 250 mL, Intravenous, 10 mL/hr NS (0.9% nacl) 1,000 mL 1,000 mL, Intravenous, 125 mL/hr PRN: (11) albuterol - ipratropium 2.5 mg-0.5 mg/3 mL Inhal Odalis UD 3 mL, Inhalation, q6hRT dextrose 50% Solution Disp syringe 50 mL 25 gram(s) 50 mL, IV Push, AsDirected heparin 5,000 units/mL (1 mL) vial 4,000 unit(s) 0.8 mL, IV Push, q6h magnesium sulfate 4 gram(s)/100mL PMX 4 g 100 mL, IV Piggyback, AsDirected magnesium sulfate 50% (500mg/mL) 6 g 12 mL, IV Piggyback, AsDirected magnesium sulfate PMX 2 g 50 mL, IV Piggyback, AsDirected nitroglycerin 0.4 mg Tablet (25/btl) 0.4 mg 1 tab(s), Sublingual, q5min potassium chloride (PMX) 20 mEq/100 mL 20 mEq 100 mL, IV Piggyback, AsDirected potassium chloride 20 mEq ER tablet 20 mEq 1 tab(s), Oral, AsDirected potassium chloride 20 mEq ER tablet 40 mEq 2 tab(s), Oral, AsDirected potassium chloride 20 mEq ER tablet 40 mEq 2 tab(s), Oral, AsDirected Lab Results 01/05 03:11 WBC: 7.1 Hgb: 10.5 L Hct: 32.1 L Platelet: 171 Neutrophil %: 77.9 H Glucose Level: 175 H Sodium Level: 141 Potassium Level: 4.2 BUN: 15.0 Creatinine Lvl (s): 1.47 H 01/04 05:55 WBC: 5.2 Hgb: 9.8 L Hct: 30.1 L Platelet: 132 L Neutrophil %: 69.7 Glucose Level: 131 H Sodium Level: 142 Potassium Level: 3.7 BUN: 13.0 Creatinine Lvl (s): 1.34 EKG Electrocardiogram (EKG) - InProcess -- 01/04/25 13:19:00 EDT, Post-procedure, Complete by Nursing Electrocardiogram (EKG) - InProcess -- 01/05/25 5:22:00 EDT Electrocardiogram (EKG) - InProcess -- 01/05/25 9:46:00 EDT Assessment/Plan Intermittent complete heart block Inferior STEMI CAD status post recent PCI Hypertension Hyperlipidemia Diabetes mellitus Hypothyroidism Patient has findings consistent with ischemia of RCA. Possible etiology of CHB. No episode of heartblock over the past 24 hours. Patient's received revascularization with RCA stent. Discontinue or hold off beta-blockers for now. Monitor the heart rhythm. Replete electrolytes with target magnesium 2 and potassium 4. Digitally Signed by KEREN WARNER MD on 01/05/2025 11:25 AM [id number] Note* Exam Date Time Procedure Performing Provider Status 01/05/25 10:34 AM Electrocardiogram - EKG - CV BRITTON MONAE MD; Auth (Verified) ECG Final Report SINUS RHYTHM PROLONGED PA INTERVAL NONSPECIFIC INTRAVENTRICULAR CONDUCTION DELAY INFERIOR INFARCT, ACUTE (RCA) PROBABLE RV INVOLVEMENT, SUGGEST RECORDING RIGHT PRECORDIAL LEADS Electronic Signature: BRITTON LEDEZMA MD 01/06/2025 18:58:15 [facility] [id number] Note* Exam Date Time Procedure Performing Provider Status 01/05/25 5:43 AM Electrocardiogram - EKG - CV TABITHA SANDOVAL MD; Auth (Verified) ECG Final Report SINUS RHYTHM PROLONGED PA INTERVAL NONSPECIFIC INTRAVENTRICULAR CONDUCTION DELAY REPOL ABNRM SUGGESTS ISCHEMIA, ANTEROLATERAL ST ELEVATION, CONSIDER INFERIOR INJURY Electronic Signature: PENELOPE SANDOVAL MD 01/05/2025 15:34:11 [facility] [id number] Cardiology Consult note Date of Service 01/04/2025 Reason for Consultation Complete heart block Referring Physician General Cardiology History of Present Illness 79-year-old male with past medical history of CAD with multiple PCI, hypertension, hyperlipidemia, diabetes, hypothyroidism, heart failure who was transferred from [facility] for complete heartblock requiring EP evaluation. History of CAD with recent PCI and stent thrombosis in the past couple weeks (no records available). Troponin 7K>. EKG showing ST elevation in lead II and III (likely from prior mi) with reciprocal ST depression in V1-V4. Planning for LHC this morning. EP team is consulted for intermittent episode of complete heart block. Currently asymptomatic. Review of Systems Constitutional: denies Fevers and chills , no loss of appetite, denies fatigue or weight change Eyes: Denies double vision/blurring of vision/flashes or floaters Ears, Nose, Mouth & Throat: Denies any tinnitus/hearing loss/sinus congestion/nasal discharge/sore throat Cardiovascular: Denies any chest pain/shortness of breath/hemoptysis/palpitations/diaphoresis Respiratory: Denies any shortness of breath/cough/productive sputum/hemoptysis Gastrointestinal: Denies any abdominal pain/nausea/vomiting/diarrhea/hematochezia/hematemesis/melena Genitourinary: Denies any dysuria/hematuria Musculoskeletal: denies joint pain or joint swelling or deformities Skin: No ulcers or rash Neurological: denies Weakness or numbness of extremities/facial droop/loss of balance Endocrine: Denies any heat or cold intolerance/polyuria/polydipsia/polyphagia Hematologic/Lymphatic: denies lymphadenopathy Allergic/Immunologic: Denies any seasonal allergy/sneezing/tearing from the eyes Physical Exam Vitals and Measurements T: 36.9 C (Oral) TMIN: 36.8 C (Oral) TMAX: 37.4 C (Oral) HR: 63 (Monitored) RR: 20 BP: 101/60 SpO2:98% HT: 175.3 cm WT: 98.4 kg BMI: 32.02 Weight Dosing Weight: 98.4 kg (01/03/25) General Appearance: Patient comfortably lying on bed, not in acute distress Head: Normocephalic, atraumatic EENT: PERRLA, Neck: Supple, no JVD, no mass Cardiac: s1s2,RRR, no murmurs or rubs or gallops Lungs: Clear to auscultation bilaterally, no wheeze or rhonchi or crackles Abdomen: Soft , Nontender, no organomegaly, bowel sounds heard Musculoskeletal: Full ROM , no gross deformities Extremities: No rash or ulcers or pedal edema Neurological: Alert, oriented x 3, grossly no focal neurological deficits Skin: No rash or ulcers Lab Results 01/04 05:55 WBC: 5.2 Hgb: 9.8 L Hct: 30.1 L Platelet: 132 L Neutrophil %: 69.7 Glucose Level: 131 H Sodium Level: 142 Potassium Level: 3.7 BUN: 13.0 Creatinine Lvl (s): 1.34 01/03 22:33 WBC: 5.8 Hgb: 10.2 L Hct: 31.3 L Platelet: 143 L Neutrophil %: 71.8 Protime: 14.9 H PT International Ratio: 1.3 Glucose Level: 118 H Sodium Level: 141 Potassium Level: 3.7 BUN: 14.0 Creatinine Lvl (s): 1.40 01/03 20:38 WBC: 6.7 Hgb: 10.7 L Hct: 33.2 L Platelet: 154 Neutrophil %: 72.3 Glucose Level: 134 H Sodium Level: 143 Potassium Level: 4.5 BUN: 13.0 Creatinine Lvl (s): 1.44 H EKG EC01/04/25: SINUS RHYTHM ATRIAL PREMATURE COMPLEX SECOND DEG AVB, MOBITZ I (WENCKEBACH) NONSPECIFIC INTRAVENTRICULAR CONDUCTION DELAY INFERIOR INFARCT, ACUTE (RCA) PROBABLE RV INVOLVEMENT, SUGGEST RECORDING RIGHT PRECORDIAL LEADS Electronic Signature: PENELOPE SANDOVAL MD 01/04/2025 08:56:01 Assessment/Plan Intermittent complete heart block Inferior STEMI CAD status post recent PCI Hypertension Hyperlipidemia Diabetes mellitus Hypothyroidism Patient has findings consistent with ischemia of RCA. Possible etiology of CHB. Has episode of intermittent complete heart block but hemodynamically stable. Follow the left heart cath and echocardiogram finding. Discontinue or hold off beta-blockers for now. Monitor the heart rhythm. Replete electrolytes with target magnesium 2 and potassium 4. Problem List/Past Medical History Ongoing Chest pain Kidney disease Sleep apnea TIA (transient ischemic attack) Type 2 diabetes mellitus Procedure/Surgical History Tonsillectomy percutaneous coronary angioplasty Prostatectomy planned Herniorrhaphy Medications Inpatient aspirin 81 mg oral delayed release tablet, 81 mg= 1 tab(s), Oral, Daily atorvastatin, 40 mg= 1 tab(s), Oral, qDay Dextrose 50% IV Push, 25 gram(s)= 50 mL, IV Push, AsDirected, PRN empagliflozin, 10 mg= 1 tab(s), Oral, qAM FLUoxetine, 40 mg= 2 cap(s), Oral, qDay furosemide, 40 mg= 1 tab(s), Oral, Every other day Heparin for IV 25,000 unit(s) + Dextrose 5% Premix Diluent 250 mL Heparin HBW CARDIAC Bolus 5000 units/mL, 4000 unit(s)= 0.8 mL, 60 unit(s)/kg, IV Push, q6h, PRN HumaLOG 100 units/mL subcutaneous solution, Give 0-5 units/dose, Subcutaneous, TIDAC levothyroxine, 25 mcg= 1 tab(s), Oral, qDay magnesium sulfate for IV bolus, 2 gram(s)= 50 mL, IV Piggyback, AsDirected, PRN magnesium sulfate for IV bolus, 4 gram(s)= 100 mL, IV Piggyback, AsDirected, PRN magnesium sulfate for IV bolus nitroglycerin 0.4 mg sublingual tablet, 0.4 mg= 1 tab(s), Sublingual, q5min, PRN pantoprazole, 40 mg= 1 tab(s), Oral, qDayAC potassium chloride, 20 mEq= 1 tab(s), Oral, AsDirected, PRN potassium chloride, 40 mEq= 2 tab(s), Oral, AsDirected, PRN potassium chloride, 40 mEq= 2 tab(s), Oral, AsDirected, PRN potassium chloride bolus, 20 mEq= 100 mL, IV Piggyback, AsDirected, PRN ticagrelor, 90 mg= 1 tab(s), Oral, BID Home acetaminophen 325 mg oral tablet, 650 mg= 2 tab(s), Oral, TID, PRN, Patient Unsure acetaminophen-hydrocodone 325 mg-5 mg oral tablet, 1 tab(s), Oral, TID, Patient Unsure amLODIPine 5 mg oral tablet, 5 mg= 1 tab(s), Oral, qDay, Patient Unsure aspirin 81 mg oral delayed release tablet, 81 mg= 1 tab(s), Oral, Daily, Patient Unsure atorvastatin 40 mg oral tablet, 40 mg= 1 tab(s), Oral, Daily cetirizine 5 mg oral tablet, 5 mg= 1 tab(s), Oral, qDay cholecalciferol 25 mcg (1000 intl units) oral tablet, 25 mcg= 1 tab(s), Oral, Daily, Patient Unsure empagliflozin 10 mg oral tablet, 10 mg= 1 tab(s), Oral, qAM FLUoxetine 40 mg oral capsule, 80 mg= 2 cap(s), Oral, qDay furosemide 40 mg oral tablet, 40 mg= 1 tab(s), Oral, Every other day isosorbide mononitrate 60 mg oral tablet, extended release, 60 mg= 1 tab(s), Oral, qAM lactobacillus rhamnosus GG, qDay, Patient Unsure levothyroxine 25 mcg (0.025 mg) oral tablet, 25 mcg= 1 tab(s), Oral, qDay magnesium oxide 400 mg oral tablet, 400 mg= 1 tab(s), Oral, qDay, Patient Unsure metoprolol succinate 25 mg oral TABLET extended release, 25 mg= 1 tab(s), Oral, qDay mirtazapine 15 mg oral tablet, 15 mg= 1 tab(s), Oral, qHS, Patient Unsure nitroglycerin 0.4 mg sublingual tablet, 0.4 mg= 1 tab(s), Sublingual, q5min, PRN, Patient Unsure pantoprazole 40 mg oral enteric coated tablet, 40 mg= 1 tab(s), Oral, qDayAC, Patient Unsure potassium chloride 10 mEq oral capsule, extended release, 10 mEq= 1 cap(s), Oral, BID Preparation H 14%-74.9%-0.25% rectal ointment, 1 tuan, Rectal, QID, PRN ranolazine 500 mg oral tablet, extended release, 500 mg= 1 tab(s), Oral, BID spironolactone 25 mg oral tablet, 25 mg= 1 tab(s), Oral, qDay ticagrelor 90 mg oral tablet, 90 mg= 1 tab(s), Oral, BID, Patient Unsure Tresiba FlexTouch 100 units/mL 3 mL subcutaneous solution, 10 unit(s), Subcutaneous, qDay Allergies doxycycline stomach upset Social History Alcohol Use: Never., 01/03/2025 Home/Environment Living situation: Extended Care Facility., 01/03/2025 Substance Abuse Use: Never., 01/03/2025 Tobacco Nicotine Use: Former smoker, quit more than 30 days ago., 01/03/2025 Immunizations No qualifying data available. Digitally Signed by KEREN WARNER MD on 01/04/2025 11:15 AM [id number] Note* Exam Date Time Procedure Performing Provider Status 01/04/25 1:51 PM Electrocardiogram - EKG - CV TABITHA SANDOVAL MD; Auth (Verified) ECG Final Report SINUS BRADYCARDIA PROLONGED PA INTERVAL LOW VOLTAGE, EXTREMITY LEADS PROBABLE POSTERIOR INFARCT, RECENT ST ELEVATION, CONSIDER INFERIOR INJURY LATERAL LEADS ARE ALSO INVOLVED Electronic Signature: PENELOPE SANDOVAL MD 01/05/2025 15:34:42 [id number] Pastoral care Progress note Pastoral Care Note Entered On: 01/04/2025 13:18 EDT Performed On: 01/04/2025 11:10 EDT by Seymour Garcia Pastoral Care Spiritual Care Visit Initiated by : Consult/Referral Type of Pastoral Visit : Initial visit Spiritual Care Reason for Visit : General Pastoral Care Referral From : Patient Spiritual Assessment : Hopeful, Grateful/Thankful Spiritual Care Emotional Assessment : Optimistic, Frustrated Spiritual Care Intervention : Active listening, Words of Encouragement, Validation of Feelings, Supportive presence, Explore Spiritual Needs, Explore Emotional Needs, Conversation Spiritual Outcomes : Spiritual Resources Stirred, Expresses Gratitude Spiritual Plan of Care : No Further Action Pastoral Care Comments : Provided spiritual/emotional care to pt w/presence, emphatic listening, encouragement, conversation, validation of feelings. Pt expressed hope (to get his heart straightened out, frustration (at being in hospital so much recently), desire to get home to [place]. Pastoral Care Visit Length : 10 minute(s) Seymour Garcia - 01/04/2025 13:15 EDT Digitally Signed by Seymour Garcia on 01/04/2025 01:15 PM [id number] Note* Exam Date Time Procedure Performing Provider Status 01/04/25 12:27 PM Cardiac Catheterization -CV JAN MAYA MD; Auth (Verified) [id number] Cardiology Consult note Date of Service 01/04/2025 Reason for Consultation Complete heart block Referring Physician General Cardiology History of Present Illness 79-year-old male with past medical history of CAD with multiple PCI, hypertension, hyperlipidemia, diabetes, hypothyroidism, heart failure who was transferred from [facility] for complete heartblock requiring EP evaluation. History of CAD with recent PCI and stent thrombosis in the past couple weeks (no records available). Troponin 7K>. EKG showing ST elevation in lead II and III (likely from prior mi) with reciprocal ST depression in V1-V4. Planning for LHC this morning. EP team is consulted for intermittent episode of complete heart block. Currently asymptomatic. Review of Systems Constitutional: denies Fevers and chills , no loss of appetite, denies fatigue or weight change Eyes: Denies double vision/blurring of vision/flashes or floaters Ears, Nose, Mouth & Throat: Denies any tinnitus/hearing loss/sinus congestion/nasal discharge/sore throat Cardiovascular: Denies any chest pain/shortness of breath/hemoptysis/palpitations/diaphoresis Respiratory: Denies any shortness of breath/cough/productive sputum/hemoptysis Gastrointestinal: Denies any abdominal pain/nausea/vomiting/diarrhea/hematochezia/hematemesis/melena Genitourinary: Denies any dysuria/hematuria Musculoskeletal: denies joint pain or joint swelling or deformities Skin: No ulcers or rash Neurological: denies Weakness or numbness of extremities/facial droop/loss of balance Endocrine: Denies any heat or cold intolerance/polyuria/polydipsia/polyphagia Hematologic/Lymphatic: denies lymphadenopathy Allergic/Immunologic: Denies any seasonal allergy/sneezing/tearing from the eyes Physical Exam Vitals and Measurements T: 36.9 C (Oral) TMIN: 36.8 C (Oral) TMAX: 37.4 C (Oral) HR: 63 (Monitored) RR: 20 BP: 101/60 SpO2:98% HT: 175.3 cm WT: 98.4 kg BMI: 32.02 Weight Dosing Weight: 98.4 kg (01/03/25) General Appearance: Patient comfortably lying on bed, not in acute distress Head: Normocephalic, atraumatic EENT: PERRLA, Neck: Supple, no JVD, no mass Cardiac: s1s2,RRR, no murmurs or rubs or gallops Lungs: Clear to auscultation bilaterally, no wheeze or rhonchi or crackles Abdomen: Soft , Nontender, no organomegaly, bowel sounds heard Musculoskeletal: Full ROM , no gross deformities Extremities: No rash or ulcers or pedal edema Neurological: Alert, oriented x 3, grossly no focal neurological deficits Skin: No rash or ulcers Lab Results 01/04 05:55 WBC: 5.2 Hgb: 9.8 L Hct: 30.1 L Platelet: 132 L Neutrophil %: 69.7 Glucose Level: 131 H Sodium Level: 142 Potassium Level: 3.7 BUN: 13.0 Creatinine Lvl (s): 1.34 01/03 22:33 WBC: 5.8 Hgb: 10.2 L Hct: 31.3 L Platelet: 143 L Neutrophil %: 71.8 Protime: 14.9 H PT International Ratio: 1.3 Glucose Level: 118 H Sodium Level: 141 Potassium Level: 3.7 BUN: 14.0 Creatinine Lvl (s): 1.40 01/03 20:38 WBC: 6.7 Hgb: 10.7 L Hct: 33.2 L Platelet: 154 Neutrophil %: 72.3 Glucose Level: 134 H Sodium Level: 143 Potassium Level: 4.5 BUN: 13.0 Creatinine Lvl (s): 1.44 H EKG EC01/04/25: SINUS RHYTHM ATRIAL PREMATURE COMPLEX SECOND DEG AVB, MOBITZ I (WENCKEBACH) NONSPECIFIC INTRAVENTRICULAR CONDUCTION DELAY INFERIOR INFARCT, ACUTE (RCA) PROBABLE RV INVOLVEMENT, SUGGEST RECORDING RIGHT PRECORDIAL LEADS Electronic Signature: PENELOPE SANDOVAL MD 01/04/2025 08:56:01 Assessment/Plan Intermittent complete heart block Inferior STEMI CAD status post recent PCI Hypertension Hyperlipidemia Diabetes mellitus Hypothyroidism Patient has findings consistent with ischemia of RCA. Possible etiology of CHB. Has episode of intermittent complete heart block but hemodynamically stable. Follow the left heart cath and echocardiogram finding. Discontinue or hold off beta-blockers for now. Monitor the heart rhythm. Replete electrolytes with target magnesium 2 and potassium 4. Problem List/Past Medical History Ongoing Chest pain Kidney disease Sleep apnea TIA (transient ischemic attack) Type 2 diabetes mellitus Procedure/Surgical History Tonsillectomy percutaneous coronary angioplasty Prostatectomy planned Herniorrhaphy Medications Inpatient aspirin 81 mg oral delayed release tablet, 81 mg= 1 tab(s), Oral, Daily atorvastatin, 40 mg= 1 tab(s), Oral, qDay Dextrose 50% IV Push, 25 gram(s)= 50 mL, IV Push, AsDirected, PRN empagliflozin, 10 mg= 1 tab(s), Oral, qAM FLUoxetine, 40 mg= 2 cap(s), Oral, qDay furosemide, 40 mg= 1 tab(s), Oral, Every other day Heparin for IV 25,000 unit(s) + Dextrose 5% Premix Diluent 250 mL Heparin HBW CARDIAC Bolus 5000 units/mL, 4000 unit(s)= 0.8 mL, 60 unit(s)/kg, IV Push, q6h, PRN HumaLOG 100 units/mL subcutaneous solution, Give 0-5 units/dose, Subcutaneous, TIDAC levothyroxine, 25 mcg= 1 tab(s), Oral, qDay magnesium sulfate for IV bolus, 2 gram(s)= 50 mL, IV Piggyback, AsDirected, PRN magnesium sulfate for IV bolus, 4 gram(s)= 100 mL, IV Piggyback, AsDirected, PRN magnesium sulfate for IV bolus nitroglycerin 0.4 mg sublingual tablet, 0.4 mg= 1 tab(s), Sublingual, q5min, PRN pantoprazole, 40 mg= 1 tab(s), Oral, qDayAC potassium chloride, 20 mEq= 1 tab(s), Oral, AsDirected, PRN potassium chloride, 40 mEq= 2 tab(s), Oral, AsDirected, PRN potassium chloride, 40 mEq= 2 tab(s), Oral, AsDirected, PRN potassium chloride bolus, 20 mEq= 100 mL, IV Piggyback, AsDirected, PRN ticagrelor, 90 mg= 1 tab(s), Oral, BID Home acetaminophen 325 mg oral tablet, 650 mg= 2 tab(s), Oral, TID, PRN, Patient Unsure acetaminophen-hydrocodone 325 mg-5 mg oral tablet, 1 tab(s), Oral, TID, Patient Unsure amLODIPine 5 mg oral tablet, 5 mg= 1 tab(s), Oral, qDay, Patient Unsure aspirin 81 mg oral delayed release tablet, 81 mg= 1 tab(s), Oral, Daily, Patient Unsure atorvastatin 40 mg oral tablet, 40 mg= 1 tab(s), Oral, Daily cetirizine 5 mg oral tablet, 5 mg= 1 tab(s), Oral, qDay cholecalciferol 25 mcg (1000 intl units) oral tablet, 25 mcg= 1 tab(s), Oral, Daily, Patient Unsure empagliflozin 10 mg oral tablet, 10 mg= 1 tab(s), Oral, qAM FLUoxetine 40 mg oral capsule, 80 mg= 2 cap(s), Oral, qDay furosemide 40 mg oral tablet, 40 mg= 1 tab(s), Oral, Every other day isosorbide mononitrate 60 mg oral tablet, extended release, 60 mg= 1 tab(s), Oral, qAM lactobacillus rhamnosus GG, qDay, Patient Unsure levothyroxine 25 mcg (0.025 mg) oral tablet, 25 mcg= 1 tab(s), Oral, qDay magnesium oxide 400 mg oral tablet, 400 mg= 1 tab(s), Oral, qDay, Patient Unsure metoprolol succinate 25 mg oral TABLET extended release, 25 mg= 1 tab(s), Oral, qDay mirtazapine 15 mg oral tablet, 15 mg= 1 tab(s), Oral, qHS, Patient Unsure nitroglycerin 0.4 mg sublingual tablet, 0.4 mg= 1 tab(s), Sublingual, q5min, PRN, Patient Unsure pantoprazole 40 mg oral enteric coated tablet, 40 mg= 1 tab(s), Oral, qDayAC, Patient Unsure potassium chloride 10 mEq oral capsule, extended release, 10 mEq= 1 cap(s), Oral, BID Preparation H 14%-74.9%-0.25% rectal ointment, 1 tuan, Rectal, QID, PRN ranolazine 500 mg oral tablet, extended release, 500 mg= 1 tab(s), Oral, BID spironolactone 25 mg oral tablet, 25 mg= 1 tab(s), Oral, qDay ticagrelor 90 mg oral tablet, 90 mg= 1 tab(s), Oral, BID, Patient Unsure Tresiba FlexTouch 100 units/mL 3 mL subcutaneous solution, 10 unit(s), Subcutaneous, qDay Allergies doxycycline stomach upset Social History Alcohol Use: Never., 01/03/2025 Home/Environment Living situation: Extended Care Facility., 01/03/2025 Substance Abuse Use: Never., 01/03/2025 Tobacco Nicotine Use: Former smoker, quit more than 30 days ago., 01/03/2025 Immunizations No qualifying data available. Digitally Signed by KEREN WARNER MD on 01/04/2025 11:15 AM [id number] Note* Exam Date Time Procedure Performing Provider Status 01/03/25 10:07 PM XR Chest 1 View STEPHY LACEY MD; Aut h (Verified) [id number] ORIGINAL EXAMINATION: ONE XRAY VIEW OF THE CHEST 01/03/2025 10:07 pm COMPARISON: None. HISTORY: ORDERING SYSTEM PROVIDED HISTORY: Reason for Exam: chest pain FINDINGS: Patient is rotated. Cardiomediastinal silhouette is within normal limits. Atherosclerotic aorta. Haziness over the left hemithorax is favored to be secondary to summation artifact. No focal consolidation, large pleural effusion, pulmonary edema or pneumothorax. No acute osseous findings. Multilevel degenerative changes of the spine. ACDF hardware. IMPRESSION: No acute radiographic findings. I have personally reviewed the images of this examination and agree with the resident's findings and interpretation. Interpreted by: Stephy Lacey MD Preliminary Report By: Peter Ace Electronically signed By Stephy Lacey MD Dictated Date: 01/04/2025 5:34:58 AM Prelim Date: 01/04/2025 5:36:48 AM Sign Date: 01/04/2025 5:39:33 AM Ordering Provider: SUPAMDCLIFFORD JERNIAGN [id number] History and physical note Date of Service 01/03/2025 Chief Complaint Chest pain History of Present Illness 79-year-old male past medical history of CAD with multiple PCI, hypertension, hyperlipidemia, diabetes, hypothyroidism, heart failure who was transferred from [facility] for complete heart block requiring EP evaluation. Patient states he had an abnormal stress test and was sent for a left heart cath on 11/27/2024 had 2 stents placed the following day he had some chest pain and shortness of breath underwent another left heart cath had an in-stent thrombosis. On December 12, 2024 he was at a family function when he had the similar left-sided chest pain he underwent a third cardiac cath no stents were placed at that time. Patient is been feeling well describes having chronic left- sided chest pain nonradiating intermittently that has not resolved since stent placements. He was called for complete heart block seen on Holter monitor and presented to [facility] subsequently. Patient denies any dyspnea on exertion, orthopnea, PND, lower extremity edema, or palpitations. Patient is in sinus rhythm with occasional ectopic atrial arrhythmia. On admission troponin 7K EKG showing mild ST elevation in lead II, [address] depression in leads V1 to V4 may be chronic from prior UT. Review of Systems Same as HPI Physical Exam Vitals and Measurements HR: 95 (Monitored) RR: 21 BP: 139/91 SpO2: 97% HT: 175.3 cm WT: 98.4 kg BMI: 32.02 Weight Dosing Weight: 98.4 kg (01/03/25) General Appearance: Patient comfortably lying on bed, not in acute distress Head: Normocephalic, atraumatic EENT: PERRLA Neck: supple, no JVD, no mass Cardiac: s1s2,RRR, no murmurs or rubs or gallops Lungs: clear to auscultation bilaterally, no wheeze or rhonchi or crackles Abdomen: soft , Nontender, no organomegaly, bowel sounds heard Musculoskeletal: no gross deformities Extremities: no rash or ulcers or pedal edema Neurological: alert, oriented x 3 Skin: no rash or ulcers Lab Results 01/03 20:38 WBC: 6.7 Hgb: 10.7 L Hct: 33.2 L Platelet: 154 Neutrophil %: 72.3 Glucose Level: 134 H Sodium Level: 143 Potassium Level: 4.5 BUN: 13.0 Creatinine Lvl (s): 1.44 H Assessment/Plan 79-year-old male past medical history of CAD with multiple PCI, hypertension, hyperlipidemia, diabetes, hypothyroidism, heart failure who was transferred from [facility] for complete heart block requiring EP evaluation. Complete heart block Patient has a Holter monitor, notified for CHB> initially not in CHB overnight. Now in CHB Hold beta-blockers EP consult in a.m. STEMI CAD with PCI History of CAD with recent PCI and stent thrombosis in the past couple weeks (no records available) Troponin 7K> proBNP 4K EKG showing ST elevation in lead II and III (likely from prior mi) with reciprocal ST depression inV1-V4> discussed with interventional cardiology patient's chest pain has improved troponin down trended we will proceed with left heart cath in a.m. Start heparin drip Continue with aspirin and ticagrelor Heart failure Unknown EF, seems to have reduced EF from medication history with GDMT Echocardiogram GDMT: Patient is on Lasix 40, Jardiance 10 mg, Aldactone Lactic acidosis Lactate 3.5 likely in the setting of demand ischemia with chronotropic response> cleared SUSAN Creatinine 1.4 Unknown baseline Diabetes ISS Problem List/Past Medical History Ongoing Chest pain Kidney disease Sleep apnea TIA (transient ischemic attack) Type 2 diabetes mellitus Procedure/Surgical History Tonsillectomy percutaneous coronary angioplasty Prostatectomy planned Herniorrhaphy Medications Home Medications (26) Active acetaminophen 325 mg oral tablet 650 mg = 2 tab(s), Oral, q4h acetaminophen-hydrocodone 325 mg-5 mg oral tablet 1 tab(s), Oral, TID amLODIPine 5 mg oral tablet 5 mg = 1 tab(s), Oral, qDay aspirin 81 mg oral delayed release tablet 81 mg = 1 tab(s), Oral, Daily atorvastatin 40 mg, Oral, qDay cetirizine 5 mg oral tablet 5 mg = 1 tab(s), Oral, qDay cholecalciferol 25 mcg (1000 intl units) oral tablet 25 mcg = 1 tab(s), Oral, Daily doxycycline hyclate 100 mg oral capsule 100 mg = 1 cap(s), Oral, BID empagliflozin 10 mg oral tablet 10 mg = 1 tab(s), Oral, qAM FLUoxetine 40 mg, Oral, qDay furosemide 40 mg oral tablet 40 mg = 1 tab(s), Oral, Every other day insulin degludec 100 units/mL 3 mL subcutaneous solution , Subcutaneous, qDay lactobacillus rhamnosus GG , qDay levothyroxine 25 mcg (0.025 mg) oral tablet 25 mcg = 1 tab(s), Oral, qDay magnesium oxide 400 mg oral tablet 400 mg = 1 tab(s), Oral, qDay metoprolol succinate 25 mg oral TABLET extended release 25 mg = 1 tab(s), Oral, qDay mineral oil/petrolatum/phenylephrine 14%-71.9%-0.25% rectal ointment 1 tuan, Rectal, BID mirtazapine 15 mg oral tablet 15 mg = 1 tab(s), Oral, qHS nitroglycerin 0.4 mg sublingual tablet 0.4 mg = 1 tab(s), PRN, Sublingual, q5min ondansetron 4 mg oral tablet, disintegrating 4 mg = 1 tab(s), PRN, Oral, q6h pantoprazole 40 mg oral enteric coated tablet 40 mg = 1 tab(s), Oral, qDayAC Potassium Chloride (Eqv-K-Tab) 10 mEq oral tablet, extended release 10 mEq = 1 tab(s), Oral, BID promethazine 25 mg oral tablet 12.5 mg = 0.5 tab(s), PRN, Oral, q6h ranolazine 500 mg oral tablet, extended release 500 mg = 1 tab(s), Oral, BID spironolactone 25 mg oral tablet 25 mg = 1 tab(s), Oral, qDay ticagrelor 90 mg oral tablet 90 mg = 1 tab(s), Oral, BID Allergies NKA Social History Alcohol Use: Never., 01/03/2025 Home/Environment Living situation: Extended Care Facility., 01/03/2025 Substance Abuse Use: Never., 01/03/2025 Tobacco Nicotine Use: Former smoker, quit more than 30 days ago., 01/03/2025 Immunizations No qualifying data available. Code Status Code Status - Ordered -- 01/03/25 20:34:00 EDT, Full Code, Constant Order Digitally Signed by ISREAL JACKSON MD on 01/04/2025 09:30 AM [id number] + Plan noteExtracted from: Title:History and Physical Author:ISREAL JACKSON MD Date:01/03/25 79-year-old male past medica l history of CAD with multiple PCI, hypertension, hyperlipidemia, diabetes, hypothyroidism, heart failure who was transferred from [facility] for complete heart block requiring EP evaluation. Complete heart block Patient has a Holter monitor, notified for CHB> initially not in CHB overnight. Now in CHB Hold beta-blockers EP consult in a.m. STEMI CAD with PCI History of CAD with recent PCI and stent thrombosis in the past couple weeks (no records available) Troponin 7K> proBNP 4K EKG showing ST elevation in lead II and III (likely from prior mi) with reciprocal ST depression in V1-V4> discussed with interventional cardiology patient's chest pain has improved troponin down trended we will proceed with left heart cath in a.m. Start heparin drip Continue with aspirin and ticagrelor Heart failure Unknown EF, seems to have reduced EF from medication history with GDMT Echocardiogram GDMT: Patient is on Lasix 40, Jardiance 10 mg, Aldactone Lactic acidosis Lactate 3.5 likely in the setting of demand ischemia with chronotropic response> cleared SUSAN Creatinine 1.4 Unknown baseline Diabetes ISS Addendum by HESHAM SPIVEY MD on January 06, 2025 10:57:48 EDT I have personally seen, examined, and evaluated the patient on 01/04/25 AM . I have reviewed the fellow s documentation and agree with the fellow s findings and plan as documented, unless otherwise stated. CATH EP EVAL TTE A3 [facility] 09-01-2025 Radiology Diagnostic study [facility]08-26-2025 [facility]08-17-2025 Note [facility]08-17-2025 Hospital Discharge instructionsAdditional Instructions Date of Discharge: 12/17/24[facility] Work Phone: 1(583) 682-757808-16-2025 Progress note Author Marycarmen Marlow [facility] Note Date/Time December 17, 2024 1: 40pm [facility] Medical Records Department [facility] [place] [address] Progress Note - Hospitalist 12/16/24 1843 MR#: [id number] Acct: [id number] Name: GERRY RICO Rep #:[id number] : 1945 79 From: Marycarmen Marlow DO PCP: Dr. Marycarmen Rodriguez, DO Status:ADM IN Location: [place] [address]- Reason for Visit Chief Complaint: Chest pain Subjective Subjective Patient was seen and examined today, he had nausea and vomiting today and I elected to have him remain in the hospital for now and reevaluate him tomorrow for possible discharge to his long term. 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 Dietitian Will [...] 75.7 H, Lymph % (Auto) 10.7 L, [place] % (Auto) 12.1 H, Eos % (Auto) [...] multiple medical problems-patient will return to his [facility] facility when medically stable Total clinical time spent by myself addressing the patient's medical issues, reviewing all of his data, and collaborating patient's care team: 35 minutes Charges/Coding Visit Charges Inpatient E&M: 87591 Subs Hosp L2 12/17/24 1340 <Electronically signed by Marycarmen Marlow DO> Cosigner Signature (if applicable): CC: ~ Signed [facility] Work Phone: 1([phone]) 372-870108-16-2025 Progress note Author Lance Rodriguez [facility] Note Date/Time December 16, 2024 12 :02pm [facility] System Medical Records Department [address] [place] [address] Progress Note 12/16/24 1154 MR#: [id number] Acct: [id number] Name: GERRY RICO Rep #:[id number] : 1945 79 From: Lance Rodriguez MD PCP: Dr. Marycarmen Rodriguez DO Status:ADM IN Location: [place] [address] Progress Note He states that his breathing [...] Cosigner Signature (if applicable): CC: ~ Signed [facility] Work Phone: 1(790) 255-730808-15-2025 History and physical note Author Ramonita Herron [facility] Note Date/Time December 15, 2024 3: 23pm [facility] System Medical Records Department [address] [place] [address] H&P Exam - Hospitalist 12/15/24 1435 MR#: [id number] Acct: [id number] Name: GERRY RICO Rep #:[id number] : 1945 79 From: Ramonita Herron MD PCP: Dr. Marycarmen Rodriguez, DO Status:ADM IN Location: [place] [address] HPI - General General Date of Admission: 12/15/24 Date of Service: 12/15/24 Chief Complaint: Chest pain HPI Narrative GERRY RICO, is a 79-year-old male history of CKD, heart failure, coronary artery disease, COPD, recent STEMI after an in-stent thrombosis who presented [facility] ED 12/15/2024 for active chest pain. Reportedly [...] legs are actually less swollen than usual. [facility] Medical History Recent ST elevation myocardial infarction [...] attack) Obstructive sleep apnea Atherosclerotic heart disease [place] coronary artery w/angina pectoris Type 2 diabetes [...] History household members: spouse and none housing: long term Smoking Status: Former smoker quit date: 05/03/98 [...] 79.3 H, Lymph % (Auto) 9.7 L, [place] % (Auto) 9.9, Eos % (Auto) 0.1, Baso % (Auto) 0.2, Absolute Neuts (auto) 11.7 H, Absolute Lymphs (auto) 1.43, Nucleated RBC % 0, PT 16.8 H, INR 1.3, JBXL565.8 H*, Sodium 129 L, Potassium 4.5, Chloride [...] No acute abnormality is seen. Reading Location: [facility] Assessment & Plan Assessment/Plan (1) Chest pain: PLAN: Plan #Recurrent chest pain and elevated trop - Patient with history of coronary artery disease with recent stent and subsequent in-stent thrombosis for which she was taken back to the [facility] - He was subsequently discharged but readmitted again as a STEMI alert however heart cath at that time showed no acute process -Trop initially 1137, though this is down from 12/07 when his troponin was 7100, will trend - Cardiology on consult - Last Sawyer examined patient's EKG, looks similar to previous send not taken emergently to [facility] - There is concern that he could [...] 78 Minutes Charges/Coding Visit Charges Inpatient E&M: 73438 Init Hosp L3 12/15/24 1523 <Electronically signed by Ramonita Herron MD> Cosigner Signature (if applicable): CC: Dr. Marycarmen Rodriguez DO; Dr. Ramonita Herron MD~ Signed [facility] Work Phone: 1(630) 478-755808-15-2025 Consult note Author Sunil Faye [facility] Note Date/Time December 15, 2024 2: 19pm [facility] Medical Records Department [address] [place] [place] [address] Consultation - Cardiology 12/15/24 1337 MR#: [id number] Acct: [id number] Name: GERRY RICO Rep #:[id number] : 1945 79 [...] diabetes mellitus without complications: QUALIFIERS: Diabetes mellitus terminal carman insulin use: without [place] [facility] use Qualified Code(s): E11.9 - Type 2 diabetes mellitus without complications (9) Obstructive sleep apnea: HPI Consult Data Date of Consult: 12/15/24 HPI Narrative Reason for Consultation: Non-STEMI HPI Narrative: GERRY RICO, is a 79 M who presents [...] diabetes mellitus, and remote history of TIA [facility] Medical History Recent ST elevation myocardial infarction [...] attack) Obstructive sleep apnea Atherosclerotic heart disease [place] coronary artery w/angina pectoris Type 2 diabetes [...] History household members: spouse and none housing: long term Smoking Status: Former smoker quit date: 05/03/98 [...] 79.3 H, Lymph % (Auto) 9.7 L, [place] % (Auto) 9.9, Eos % (Auto) 0.1, [...] 79.3 H, Lymph % (Auto) 9.7 L, [place] % (Auto) 9.9, Eos % (Auto) 0.1, [...] No acute abnormality is seen. Reading Location: [facility] [place] Risk Score for UA/STEMI Assesmment (YES = 1) Risk Stratification Applicable: No 12/15/24 1419 <Electronically signed by Sunil Faye MD> Cosigner Signature (if applicable): CC: Dr. Marycarmen Rodriguez, ~ Signed [facility] Work Phone: 1(132) 916-279108-15-2025 Discharge summary Author Payal Weldon [facility] Note Date/Time December 15, 2024 1: 39pm [facility] Medical Records Department [address] [place] [address] Emergency Department Summary 12/15/24 MR#: [id number] Acct: [id number] Name: GERRY RICO Rep #:[id number] : 1945 79 [...] attack) Obstructive sleep apnea Atherosclerotic heart disease [place] coronary artery w/angina pectoris Type 2 diabetes [...] History household members: spouse and none housing: long term Smoking Status: Former smoker quit date: 05/03/98 [...] room air. EKG showing ventricular rate 98, PA 186, QTc 357. Left axis deviation. Compared [...] Spoke with the hospitalist, Ramonita Herron to Lasix to patient with further workup and admission [...] 79.3 H Lymph % (Auto) 9.7 L [place] % (Auto) 9.9 Eos % (Auto) 0.1 [...] No acute abnormality is seen. Reading Location: [place] [address] Chest x-ray independently interpreted myself showing cardiomegaly. Largely unchanged from previous compared on 12/07/2024 EKG Initial EKG: Attestation: I personally reviewed and interpreted this EKG as follows: Interpretation: Sinus Rhythm Comments: EKG independently interpreted by myself showing evidence of normal sinus rhythm. Ventricular rate 98, PA 186, QTc 357. Left axis deviation. Compared to previous EKG on 12/07/2024 ST elevation in lead III largely unchanged. Concerned that there may be slightly more elevation in lead II and V6 compared to 12/07 concerning for new ischemia. STEMI alert activated. Prior EKG tracings: available for review (12/07/24) Management Discussion w/another healthcare provider: Hospitalist and Director Business Systems Discharge Plan Dx/Rx/DC Orders Clinical Impression: Chest pain Disposition Disposition: Acute Care Hospital [facility] What to do if you have Problems For any increased pain, shortness of breath, bleeding, nausea or vomiting, chestpain, or any unexpected problems, contact your Primary Care Provider. Call [facility] ([phone]) or report to the closest Emergency Room. Call 911 if necessary. 12/15/24 1339 <Electronically signed by Payal Weldon DO> Cosigner Signature (if applicable): CC: Dr. Marycarmen Rodriguez DO ~ Signed [facility] Work Phone: 1(731) 749-970508-15-2025 Radiology Diagnostic study [facility]08-08-2025 Discharge summary Author Alex Sanon [facility] Note Date/Time December 08, 2024 12: 26pm [facility] Medical Records Department [address] [place] [address] Discharge Summary 12/08/24 1222 MR#: [id number] Acct: [id number] Name: GERRY RICO #:[id number] : 1945 79 From: Alex Sanon MD PCP: Dr. Marycarmen Rodriguez, DO Status:ADM EDMUND Location: [place] [address] Providers Date of Admission: 12/07/24 Primary Care Physician: Dr. Marycarmen Rodriguez, Reason For Visit: SHORTNESS OF BREATH. Diagnosis Discharge Diagnosis (1) DEAN (dyspnea on exertion): Status: Acute Code(s): R06.00 - Dyspnea, unspecified Plan Patient is a 79-year-old gentleman with recent history of acute inferior STEMI which was complicated by distal PLV dissection who was discharged to a [facility] facility brought back with shortness of breath. [...] ? Patient was recently discharged to a [facility] facility plan is for patient to be [...] 74.1 H, Lymph % (Auto) 11.4 L, [place] % (Auto) 12.1 H, Eos % (Auto) [...] probability scan for pulmonary embolism. Reading Location: [id number]/ Instructions Discharge Activity: Return to Normal [...] Uncertain Cause Additional Instructions / Restrictions: The traffic manager wanted to make sure you are taking [...] in before D/C Order can be placed): [facility] Charges/Coding Visit Charges Inpatient E&M: 54371 Disch Hosp >30min 12/08/24 1226 <Electronically signed by Alex Sanon MD> Cosigner Signature (if applicable): CC: Dr. Alex Sanon MD; Dr. Marycarmen Rodriguez DO~ Signed [facility] Work Phone: 1(389) 654-182808-08-2025 [facility]08-08-2025 Nuclear medicine Diagnostic study [facility]08-08-2025 Progress note Author Alex Sanon [facility] Note Date/Time December 08, 2024 9:2 1am [facility] Medical Records Department [address] [facility] [place] [address] Progress Note - Hospitalist 12/08/24 0734 MR#: [id number] Acct: [id number] Name: GERRY RICO Rep #:[id number] : 1945 79 From: Alex Sanon MD PCP: Dr. Marycarmen Jennifer, DO Status:ADM EDMUND Location: [place] [address] Subjective Subjective Patient is a 79-year-old gentleman with recent history of acute inferior STEMI which was complicated by distal PLV dissection who was discharged to a [facility] facility brought back with shortness of breath. [...] 79.0 H, Lymph % (Auto) 7.9 L, [place] % (Auto) 11.5 H, Eos % (Auto) [...] IMPRESSION: No acute cardiopulmonary process Reading Location: [facility] Physical Exam Narrative GENERAL: cooperative HEENT: [...] PLV dissection who was discharged to a [facility] facility brought back with shortness of breath. [...] ? Patient was recently discharged to a [facility] facility plan is for patient to be [...] Subcu heparin Charges/Coding Visit Charges Inpatient E&M: 51128 Subs Hosp L2 12/08/24 0921 <Electronically signed by Alex Sanon MD> Cosigner Signature (if applicable): CC: ~ Signed [facility] Work Phone: 1(898) 201-744708-07-2025 History and physical note Author Shaan Santos [facility] Note Date/Time December 07, 2024 4:4 8pm [facility] Medical Records Department [address] [place] [address] H&P Exam - Hospitalist 12/07/24 1633 MR#: [id number] Acct: [id number] Name: GERRY RICO Rep #:[id number] : 1945 79 From: Shaan Santos DO PCP: Dr. Marycarmen Rodriguez, DO Status:ADM EDMUND Location: [place] [address] HPI - General General Date of Service: 12/07/24 HPI Narrative GERRY RICO, is a 79 M who presents [...] currently on room air and breathing comfortably. [facility] Medical History Anxiety Depression Diabetes Kidney disease [...] attack) Obstructive sleep apnea Atherosclerotic heart disease [place] coronary artery w/angina pectoris Type 2 diabetes [...] History household members: spouse and none housing: long term Smoking Status: Former smoker quit date: 05/03/98 [...] 79.0 H, Lymph % (Auto) 7.9 L, [place] % (Auto) 11.5 H, Eos % (Auto) [...] IMPRESSION: No acute cardiopulmonary process Reading Location: [facility] Assessment & Plan Assessment/Plan (1) Shortness [...] at bedside. Charges/Coding Visit Charges Inpatient E&M: 00091 Init Hosp L3 12/07/24 1882 <Electronically signed by Shaan Santos DO> Cosigner Signature (if applicable): CC: Dr. Shaan Santos DO; Dr. Marycarmen Rodriguez DO~ Signed [facility] Work Phone: 1(819) 121-136108-07-2025 Radiology Diagnostic study [facility]08-06-2025 Consult note Author Cyndie Frye [facility] Note Date/Time December 06, 2024 12: 22pm [facility] Medical Records Department [address] [place] [address] Counseling Note - Pharmacy 12/06/24 1222 MR#: [id number] Acct: [id number] Name: GERRY RICO Rep #:[id number] : 1945 79 From: Cyndie Frye PCP: Dr. Marycarmen Rodriguez, DO Status:ADM IN Y Location: [place] [address] Pharmacy [place] Med Reconciliation Pharmacy Service has performed discharge [...] by Cyndie Frye> Date _ Cyndie Frye Cosign Signature (if applicable): Date CC: ~ Signed [facility] Work Phone: 1(972) 601-477908-06-2025 Hospital Discharge instructionsAdditional Instructions Date of Discharge: 12/06/24[facility] Work Phone: 1(562) 235-860208-06-2025 Discharge summary Author Alex Sanon [facility] Note Date/Time December 06, 2024 11: 59am [facility] System Medical Records Department [address] [place] [address] Transfer to [facility] MR#: [id number] Acct: [id number] Name: GERRY RICO Rep #:[id number] : 1945 79 From: Alex Sanon MD PCP: Dr. Marycarmen Rodriguez, DO Status:ADM IN Certification of patient admission REQUIRED AT TIME OF ADMISSION. I CERTIFY THAT POST-HOSPITAL ECF SERVICES ARE REQUIRED TO BE GIVEN ON AN IN-PATIENT BASIS BECAUSE OF THE ABOVE NAMED PATIENT'S NEED FOR JAIL CARE ON A CONTINUING BASIS FOR THE CONDITION(S) FOR WHICH HE/SHE WAS RECEIVING IN-PATIENT HOSPITAL SERVICES PRIOR TO HIS/HER TRANSFER TO THE ECF. 12/06/24 1152<Electronically signed by Alex Sanon MD> Diet Diet [...] 2. Hypokalemia ? Corrected per protocol 3. SUSAN on CKD stage IIIb, improving ? Creatinine [...] ? Requested for PT OT eval and manager social services to assist with discharge planning ? 12/06/2024 plan is for patient to be discharged to a [facility] facility pending bed availability as well as [...] in before D/C Order can be placed): [facility] 12/06/24 1159 <Electronically signed by Alex Sanon MD> Cosigner Signature (if applicable): CC: Dr. Abraham Ridley DO; Dr. Mickey Simpson MD; Dr. Marycarmen Rodriguez DO;Dr. Ramonita Herron MD ~ [facility] Work Phone: 1(427) 302-910408-06-2025 Discharge summary Author Alex Sanon [facility] Note Date/Time December 06, 2024 11: 55am [facility] System Medical Records Department [address] [place] [address] Transfer to Extended [facility] MR#: [id number] Acct: [id number] Name: GERRY RICO Rep #:[id number] : 1945 79 From: Alex Sanon MD PCP: Dr. Marycarmen Rodriguez DO Status:ADM IN Certification of patient admission REQUIRED AT TIME OF ADMISSION. I CERTIFY THAT POST-HOSPITAL ECF SERVICES ARE REQUIRED TO BE GIVEN ON AN IN-PATIENT BASIS BECAUSE OF THE ABOVE NAMED PATIENT'S NEED FOR JAIL CARE ON A CONTINUING BASIS FOR THE CONDITION(S) FOR WHICH HE/SHE WAS RECEIVING IN-PATIENT HOSPITAL SERVICES PRIOR TO HIS/HER TRANSFER TO THE [facility]. 12/06/24 7165<Electronically signed by Alex Sanon MD> Diet Diet [...] 2. Hypokalemia ? Corrected per protocol 3. SUSAN on CKD stage IIIb, improving ? Creatinine [...] ? Requested for PT OT eval and manager social services to assist with discharge planning ? 12/06/2024 plan is for patient to be discharged to a [facility] facility pending bed availability as well as [...] Rodriguez Consulting Providers: Abraham Ridley; Mickey Simpson; Herron,Ramonita Discharge Orders/Prescriptions Prescriptions: New furosemide 40 mg [...] in before D/C Order can be placed): [facility] 12/06/24 1155 <Electronically signed by Alex Sanon MD> Cosigner Signature (if applicable): CC: Dr. Abraham Ridley DO; Dr. Mickey Simpson MD; Dr. Marycarmen Rodriguez DO;Dr. Ramonita Herron MD ~ [facility] Work Phone: 1(775) 832-888608-06-2025 Discharge summary Author Alex Ojedaveronica [facility] Note Date/Time December 06, 2024 11: 53am [facility] System Medical Records Department [address] [place] [address] Discharge Summary 12/06/24 1146 MR#: [id number] Acct: [id number] Name: GERRY RICO Rep #:[id number] : 1945 79 From: Alex Sanon MD PCP: Dr. Marycarmen Rodriguez DO Status:[facility] Providers Date of Admission: 12/03/24 Date [...] 2. Hypokalemia ? Corrected per protocol 3. SUSAN on CKD stage IIIb, improving ? Creatinine [...] ? Requested for PT OT eval and manager social services to assist with discharge planning ? 12/06/2024 plan is for patient to be discharged to a [facility] facility pending bed availability as well as [...] 72.7 H, Lymph % (Auto) 11.6 L, [place] % (Auto) 12.9 H, Eos % (Auto) [...] in before D/C Order can be placed): [facility] Facility Charges/Coding Visit Charges Inpatient E&M: 84047 Disch Hosp >30min 08/06/25 1153 <Electronically signed by Alex Sanon MD> Cosigner Signature (if applicable): CC: Dr. Alex Sanon MD; Dr. Marycarmen Rodriguez, DO~ Signed [facility] Work Phone: 1(488) 906-971908-06-2025 [facility]08-06-2025 Progress note Author Alex Sanon [facility] Note Date/Time December 06, 2024 8:4 0am [facility] System Medical Records Department [address] [place] [address] Progress Note - Hospitalist 12/06/24 0838 MR#: [id number] Acct: [id number] Name: GERRY RICO Rep #:[id number] : 1945 79 From: Alex Sanon MD PCP: Dr. Marycarmen Rodriguez DO Status:ADM IN Location: [place] [address] Reason for Visit Chief Complaint: Chest Pain with STEMI alert. Subjective Subjective Patient seen remains physically deconditioned. Was seen in consultation by physical therapy recommendation is for patient to be discharged to a [facility] facility case management subsequently consulted Objective Data [...] 72.7 H, Lymph % (Auto) 11.6 L, [place] % (Auto) 12.9 H, Eos % (Auto) [...] 2. Hypokalemia ? Corrected per protocol 3. SUSAN on CKD stage IIIb, improving ? Creatinine [...] ? Requested for PT OT eval and manager social services to assist with discharge planning ? 12/06/2024 plan is for patient to be discharged to a [facility] facility pending bed availability as well as insurance precertification Time spent in the patient's overall evaluation,decision-making process, review of diagnostic data, adjustment of management, discussion with other providers, nursing nursing and ancillary staff involved in patient's care documentation, 36 Minutes Charges/Coding Visit Charges Inpatient E&M: 88610 Subs Hosp L2 Date medically ready for discharge: 12/06/24 Reason for DC delay: Precert pending from insurance 12/06/24 0840 <Electronically signed by Alex Sanon MD> Cosigner Signature (if applicable): CC: ~ Signed [facility] Work Phone: [phone]) 876-341308-06-2025 Progress note Author Marcin Araujo [facility] Note Date/Time December 06, 2024 7:5 1am [facility] System Medical Records Department [address] [place] [address] Progress Note - Cardiology 12/06/24 0747 MR#: [id number] Acct: [id number] Name: GERRY RICO Rep #:[id number] : 1945 79 From: Marcin Araujo MD PCP: Dr. Marycarmen Rodriguez, DO Status:ADM IN Location: [place] [address] Subjective Subjective Patient seen and evaluated. Appears [...] 72.7 H, Lymph % (Auto) 11.6 L, [place] % (Auto) 12.9 H, Eos % (Auto) [...] 72.7 H, Lymph % (Auto) 11.6 L, [place] % (Auto) 12.9 H, Eos % (Auto) [...] Cosigner Signature (if applicable): CC: ~ Signed [facility] Work Phone: 1(947) 101-334008-05-2025 Progress note Author Alex Sanon [facility] Note Date/Time December 05, 2024 10: 29am [facility] System Medical Records Department [address] [place] [address] Progress Note - Hospitalist 12/05/24 1019 MR#: [id number] Acct: [id number] Name: GERRY RICO Rep #:[id number] : 1945 79 From: Alex Sanon MD PCP: Dr. Marycarmen Rodriguez, DO Status:ADM IN Location: [place] [address] Reason for Visit Chief Complaint: Chest Pain [...] 2. Hypokalemia ? Corrected per protocol 3. SUSAN on CKD stage IIIb, improving ? Creatinine [...] ? Requested for PT OT eval and manager social services to assist with discharge planning Time spent in the patient's overall evaluation,decision-making process, review of diagnostic data, adjustment of management, discussion with other providers, nursing nursing and ancillary staff involved in patient's care documentation, 38 Minutes Charges/Coding Visit Charges Inpatient E&M: 23453 Subs Hosp L2 12/05/24 1029 <Electronically signed by Alex Sanon MD> Cosigner Signature (if applicable): CC: ~ Signed [facility] Work Phone: 1(242) 107-615008-05-2025 Progress note Author Marcin Araujo [facility] Note Date/Time December 05, 2024 7:5 3am [facility] Medical Records Department [address] [place] [address] Progress Note - Cardiology 12/05/24 0745 MR#: [id number] Acct: [id number] Name: GERRY RICO Rep #:[id number] : 1945 79 From: Marcin Araujo MD PCP: Dr. Marycarmen Rodriguez, DO Status:ADM IN Location: [place] [address] Subjective Subjective Patient seen and evaluated. Doing [...] Cosigner Signature (if applicable): CC: ~ Signed [facility] Work Phone: 1(486) 620-785908-04-2025 Progress note Author Abraham Ridley [facility] Note Date/Time December 04, 2024 2:2 1pm [facility] Medical Records Department [address] [place] [address] Progress Note - Hospitalist 12/04/24 1057 MR#: [id number] Acct: [id number] Name: GERRY RICO Rep #:[id number] : 1945 79 From: Abraham inman DO PCP: Dr. Marycarmen Rodriguez, DO Status:ADM IN Location: [place] [address] Reason for Visit Chief Complaint: Chest Pain [...] 73.9 H, Lymph % (Auto) 11.1 L, [place] % (Auto) 11.9 H, Eos % (Auto) [...] Patient is a 79-year-old male who presented [facility] ED on 12/02/2024 as a STEMI alert. [...] well per cardiology. Continue cardiac monitoring. 2. SUSAN on CKD stage IIIb, improving ? Creatinine [...] 35 minutes. Charges/Coding Visit Charges Inpatient E&M: 62416 Subs Hosp L2 12/04/24 1421 <Electronically signed by Abraham Ridley DO> Cosigner Signature (if applicable): CC: ~ Signed [facility] Work Phone: [phone]) 212-151808-04-2025 Progress note Author Marcin Araujo [facility] Note Date/Time December 04, 2024 8:5 2am [facility] System Medical Records Department [address] [place] [address] Progress Note - Cardiology 12/04/24724 MR#: [id number] Acct: [id number] Name: GERRY RICO Rep #:[id number] : 1945 79 From: Marcin Araujo MD PCP: Dr. Marycarmen Rodriguez DO Status:ADM IN Location: [place] [address] Subjective Subjective Patient seen and evaluated. Sleeping. [...] and Output for Last 24 Hours 12/02/24 12/03/2425 23:59 23:59 23:59 Intake Total 240 / 240 Output Total 2089 / 3289 2300 / 230 Balance -2089 / -2059 / Lab / Micro Data 12/04/24 05:02 12/04/24 05:02 Labs: Laboratory Results - last 24 hr 12/03/24 07:20: Urine Color Yellow, Urine Clarity Clear, Urine pH 6.0, Ur Specific [place] 1.015, Urine Protein 15 H, Urine Glucose [...] 75.5 H, Lymph % (Auto) 10.5 L, [place] % (Auto) 11.4 H, Eos % (Auto) [...] 73.9 H, Lymph % (Auto) 11.1 L, [place] % (Auto) 11.9 H, Eos % (Auto) [...] Clarity Clear, Urine pH 6.0, Ur Specific [place] 1.015, Urine Protein 15 H, Urine Glucose [...] 75.5 H, Lymph % (Auto) 10.5 L, [place] % (Auto) 11.4 H, Eos % (Auto) [...] 73.9 H, Lymph % (Auto) 11.1 L, [place] % (Auto) 11.9 H, Eos % (Auto) 2.2, Baso % (Auto) 0.3, Absolute Neuts (auto) 7.1, Nucleated RBC % 0, Sodium 137, Potassium 3.1 L, Chloride 96 L, Carbon Dioxide 21.4, Anion Gap 19 H, BUN 49 H, Creatinine 2.53 H, Est GFR (MDRD) Non-Af 25 L, BUN/Creatinine Ratio 19.4, Mmpyoee194 H, Calcium 9.2 Rhythm: EKG: ECHO: Stress [...] Cosigner Signature (if applicable): CC: ~ Signed [facility] Work Phone: 1(872) 408-783908-04-2025 Consult note Author Marcin Araujo [facility] Note Date/Time December 04, 2024 6:4 7am [facility] System Medical Records Department [address] [place] [address] Consultation - Cardiology 12/03/24 1241 MR#: [id number] Acct: [id number] Name: GERRY RICO Rep #:[id number] : 1945 79 From: Marcin Araujo MD PCP: Dr. Marycarmen Rodriguez, DO Status:ADM IN Location: [place] [address]- Documented by User: Dr. Mickey Simpson MD [...] Narrative Reason for Consultation: STEMI HPI Narrative: GERRY RICO, is a 79 M who presents [...] which the patient was brought into the [facility] urgent cardiac catheterization was performed via left [...] any JOSELO or ARB secondary to CKD PFSH Medical History Anemia Diabetes mellitus Chronic kidney [...] kidney disease, stage 3 Atherosclerotic heart disease [place] coronary artery w/angina pectoris Type 2 diabetes [...] hydrocodone-acetaminophen 5-325mg 1 tab PO TID PRN germain n 11/22/24 11/27/24 History 5mg-325mg furosemide 80 [...] 76.7 H, Lymph % (Auto) 8.9 L, [place] % (Auto) 12.7 H, Eos % (Auto) [...] Calcium 9.1, Troponin T High Sens > 60832 H* D 12/02/24 20:29: Activated Clotting Time 245 H 12/02/24 22:43: Troponin T Hi Sens 2 Hr > 47071 H* 12/03/24 01:17: Troponin T Hi Sens 4Hr > 79545 H* 12/03/24 06:14: POC Glucose 140 H 12/03/24 07:20: Urine Color Yellow, Urine Clarity Clear, Urine pH 6.0, Ur Specific [place] 1.015, Urine Protein 15 H, Urine Glucose [...] 75.5 H, Lymph % (Auto) 10.5 L, [place] % (Auto) 11.4 H, Eos % (Auto) [...] 76.7 H, Lymph % (Auto) 8.9 L, [place] % (Auto) 12.7 H, Eos % (Auto) [...] Clarity Clear, Urine pH 6.0, Ur Specific [place] 1.015, Urine Protein 15 H, Urine Glucose [...] 75.5 H, Lymph % (Auto) 10.5 L, [place] % (Auto) 11.4 H, Eos % (Auto) [...] HPI Consult Data Date of Consult: 12/04/24 [facility] Medical History Anemia Diabetes mellitus [...] kidney disease, stage 3 Atherosclerotic heart disease [place] coronary artery w/angina pectoris Type 2 diabetes [...] hydrocodone-acetaminophen 5-325mg 1 tab PO TID PRN germain n 11/22/24 11/27/24 History 5mg-325mg furosemide 80 [...] applicable): CC: Dr. Mickey Simpson MD; Dr. Maryacrmen Rodriguez DO~ Signed [facility] Work Phone: [phone]) 949-205308-03-2025 Progress note Author Ramonita Herron [facility] Note Date/Time December 03, 2024 3:5 7pm [facility] Medical Records Department [address] [place] [address] Progress Note - Hospitalist 12/03/24 1548 MR#: [id number] Acct: [id number] Name: GERRY RICO Rep #:[id number] : 1945 79 From: Ramonita Herron MD PCP: Dr. Marycarmen Rodriguez DO Status:ADM IN Location: [place] [address] Reason for Visit Chief Complaint: Chest Pain [...] 76.7 H, Lymph % (Auto) 8.9 L, [place] % (Auto) 12.7 H, Eos % (Auto) [...] Calcium 9.1, Troponin T High Sens > 80185 H* D 12/02/24 20:29: Activated Clotting Time 245 H 12/02/24 22:43: Troponin T Hi Sens 2 Hr > 55117 H* 12/03/24 01:17: Troponin T Hi Sens 4Hr > 32408 H* 12/03/24 06:14: POC Glucose 140 H 12/03/24 07:20: Urine Color Yellow, Urine Clarity Clear, Urine pH 6.0, Ur Specific [place] 1.015, Urine Protein 15 H, Urine Glucose [...] 75.5 H, Lymph % (Auto) 10.5 L, [place] % (Auto) 11.4 H, Eos % (Auto) [...] Recent STEMI -Was emergently taken to the [facility] 11/30 due to a STEMI. Emergent cath [...] on 12/02 and went emergently to the [facility] however no intervention was needed or warranted [...] IV - Last admission patient had an SUSAN, patient's creatinine improved slightly but then this [...] Herron MD Charges/Coding Visit Charges Inpatient E&M: 57987 Subs Hosp L2 12/03/24 1557 <Electronically signed by Ramonita Herron MD> Cosigner Signature (if applicable): CC: ~ Signed [facility] Work Phone: 1(247) 985-972108-03-2025 History and physical note Author Alex Resendez [facility] Note Date/Time December 03, 2024 5:5 6am [facility] Medical Records Department [address] [place] [address] H&P Exam - Hospitalist 12/02/242049 MR#: [id number] Acct: [id number] Name: GERRY RICO Rep #:[id number] : 1945 79 From: Alex Colon DO PCP: Dr. Marycarmen Rodriguez, Status:ADM IN Location: [place] [address] HPI - General General Date of Admission: 12/02/24 Date of Service: 12/02/24 Chief Complaint: Chest Pain with STEMI alert. 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 [...] is expected to extend beyond 2 midnights. 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 Patient taken for emergent LHC by [facility] with the patient suspected to have acute coronary vasospasm with no lesion noted so patient will be managed in PCU. Continue present treatment with baby aspirin, ticagrelor and IV heparin. Give acetaminophen as needed for [id number] (level 1-5/10) pain or fever. Give morphine [...] 75 minutes. Charges/Coding Visit Charges Inpatient E&M: 07197 Init Hosp L3 12/03/24 0556 <Electronically signed by Alex Sow DO> Cosigner Signature (if applicable): CC: Dr. Alex Sow DO; Dr. Marycarmen Rodriguez DO~ Signed [facility] Work Phone: [phone]) 781-111908-02-2025 Discharge summary Author Rasheed Canela [facility] Note Date/Time December 02, 2024 8:5 3pm [facility] System Medical Records Department [address] [place] [address] Emergency Department Summary 12/02/24 MR#: [id number] Acct: [id number] Name: GERRY RICO Rep #:[id number] : 1945 79 [...] Factors: Positive for Hypertension, Diabetes and Hypercholesterolemia [facility] Medical History Anemia Diabetes mellitus Chronic [...] kidney disease, stage 3 Atherosclerotic heart disease [place] coronary artery w/angina pectoris Type 2 diabetes [...] hydrocodone-acetaminophen 5-325mg 1 tab PO TID PRN germain n 11/22/24 11/27/24 History 5mg-325mg furosemide 80 [...] was reviewed. Spoke with Dr. Simpson the stereo equipment installer. He was made aware of patient's history, [...] 76.7 H Lymph % (Auto) 8.9 L [place] % (Auto) 12.7 H Eos % (Auto) [...] healthcare provider: Hospitalist (Dr. Alex Handley) and Director Business Systems (major gifts director) Critical Care Time Critical Care Time: Yes Critical care time (excluding procedures): 30-74 minutes (15), Including time spent: (History, physical, documentation, prehospital med direction, discussion with , review of prior records and independent rotation of EKG), Discussing w/Patient &/or Family/Manager [employer] Director (Spoke with who informing that he just left the hospital this afternoon to attend his granddaughter's wedding.), Discussing w/Consultants (major gifts director and hospitalist) and Arranging Admission or Transfer Discharge Plan Dx/Rx/DC Orders Clinical Impression: Acute ST elevation myocardial infarction (STEMI) of inferior wall, Obstructive sleep apnea, Obesity, Chronic kidney disease, Diabetes mellitus, Hyperlipidemia Disposition Disposition: Acute Care Hospital [facility] What to do if you have Problems For any increased pain, shortness of breath, bleeding, nausea or vomiting, chestpain, or any unexpected problems, contact your Primary Care Provider. Call [facility] ([phone]) or report to the closest Emergency Room. Call 911 if necessary. 12/02/242052 <Electronically signed by Rasheed Canela MD> Cosigner Signature (if applicable): CC: Dr. Marycarmen Rodriguez, DO ~ Signed [facility] Work Phone: 1(296) 543-126008-02-2025 Consult note Author Jamar Tapia [facility] Note Date/Time December 02, 2024 12: 23pm [facility] Medical Records Department [address] [place] [address] Consultation - Neurology 12/02/24 1207 MR#: [id number] Acct: [id number] Name: GERRY RICO Rep #:[id number] : 1945 79 From: Jamar Hooker PCP: Dr. Marycarmen Rodriguez, DO Status:ADM IN Location: [place] [address] Assessment and Plan: Neuro Assessment/Plan GERRY RICO is a 79 M with cv [...] of Consult: 12/02/24 HPI Narrative HPI Narrative: GERRY RICO, is a 79 M with ckd, [...] cta as low concern for lvo and susan. He states thatthis has happened many times [...] questions or concerns. Stroke to sign off. [facility] Medical History (Updated 12/01/24 @ 09:47 by [...] kidney disease, stage 3 Atherosclerotic heart disease [place] coronary artery w/angina pectoris Type 2 diabetes [...] hydrocodone-acetaminophen 5-325mg 1 tab PO TID PRN germain n 11/22/24 11/27/24 History 5mg-325mg furosemide 80 [...] EEG Results Procedure Details EEG Procedure Details: GERRY RICO is a 79 year old M [...] 78.9 H, Lymph % (Auto) 7.6 L, [place] % (Auto) 12.0 H, Eos % (Auto) [...] abnormality. 2. Age-related senescent changes. Reading Location: [facility] Active Medications Active Medications Active Medications: Current [...] mls @ 15 mls/hr 11/30/24 17:25 IV .[id number] PRN Saline Flush Sodium Chloride 250 mls @ 15 mls/hr 11/30/24 17:25 IV .[id number] PRN Additional IVPB Infusion Insulin Human Lispro 0 unit 11/30/24 22:00 12/02/24 06:30 Insulin Lispro 100 Unit/Ml Insuln.Pen SC Not Given ACHS [facility] Protocol Labetalol HCl 10 - 20 [...] 10:00 Metolazone 2.5 Mg Tablet PO DAILY [facility] Protocol Metoprolol Succinate 25 mg 12/01/24 [...] Glucerna Shake 120 Ml Liquid PO TIDCM [facility] Ondansetron HCl 4 mg 11/30/24 17:08 12/01/24 08:34 Ondansetron 4 Mg/2 Ml Vial IV 4 mg Q8H PRN PRN Administration NAUSEA/VOMITING Pantoprazole Sodium 40 mg 12/01/24 10:00 12/02/24 09:59 Pantoprazole Sodium 40 Mg Tablet PO 40 mg DAILY [facility] Administration Sodium Chloride 500 ml 11/30/24 16:51 [...] or with change in RN caregiver Freq: [id number] Protocol: Activity Type Activity Date Activity User E-sign Co-sign Detail Recorded Client Recorded Date Recorded By Document 12/01/24 20:15 CD [id number] 12/01/24 20:28 CD 12/01/24 20:15 [facility] Stroke [...] and with change in RN caregiver. Freq: [id number] Protocol: Activity Type Activity Date Activity User E-sign Co-sign Detail Recorded Client Recorded Date Recorded By Document 12/02/24 10:00 GRIS [id number] 12/02/24 10:20 TSTIKA 12/02/24 10:00 [facility] Stroke [...] Dr. Jose Hay MD; Dr. Marycarmen Rodriguez, ~ Signed [facility] Work Phone: 1([phone]) 420-203708-02-2025 Discharge summary Author Rasheed Canela [facility] Note Date/Time December 02, 2024 8:5 3pm [facility] System Medical Records Department [address] [place] [address] Emergency Department Summary 12/02/24 MR#: [id number] Acct: [id number] Name: GERRY RICO Rep #:[id number] : 1945 79 [...] Factors: Positive for Hypertension, Diabetes and Hypercholesterolemia [facility] Medical History Anemia Diabetes mellitus Chronic [...] kidney disease, stage 3 Atherosclerotic heart disease [place] coronary artery w/angina pectoris Type 2 diabetes [...] hydrocodone-acetaminophen 5-325mg 1 tab PO TID PRN germain n 11/22/24 11/27/24 History 5mg-325mg furosemide 80 [...] was reviewed. Spoke with Dr. Simpson the stereo equipment installer. He was made aware of patient's history, [...] 76.7 H Lymph % (Auto) 8.9 L [place] % (Auto) 12.7 H Eos % (Auto) [...] healthcare provider: Hospitalist (Dr. Alex Handley) and Director Business Systems (major gifts director) Critical Care Time Critical Care Time: Yes Critical care time (excluding procedures): 30-74 minutes (15), Including time spent: (History, physical, documentation, prehospital med direction, discussion with , review of prior records and independent rotation of EKG), Discussing w/Patient &/or Family/Manager [employer] Director (Spoke with who informing that he just left the hospital this afternoon to attend his granddaughter's wedding.), Discussing w/Consultants (major gifts director and hospitalist) and Arranging Admission or Transfer Discharge Plan Dx/Rx/DC Orders Clinical Impression: Acute ST elevation myocardial infarction (STEMI) of inferior wall, Obstructive sleep apnea, Obesity, Chronic kidney disease, Diabetes mellitus, Hyperlipidemia Disposition Disposition: Acute Care Hospital [facility] What to do if you have Problems For any increased pain, shortness of breath, bleeding, nausea or vomiting, chestpain, or any unexpected problems, contact your Primary Care Provider. Call [facility] ([phone]) or report to the closest Emergency Room. Call 911 if necessary. 12/02/242052 <Electronically signed by Rasheed Canela MD> Cosigner Signature (if applicable): CC: Dr. Marycarmen Rodriguez, DO ~ Signed [facility] Work Phone: 1(216) 615-342008-02-2025 Hospital Discharge instructionsAdditional Instructions 1. It is very important to not miss any doses of your ticagrelor (Brilinta) and aspirin. Please take these as prescribed with no missed doses. If you miss doses you could clot off your stents. Date of Discharge: 12/02/24[facility] Work Phone: 1(634) 546-158508-02-2025 [facility]08-01-2025 Progress note Author Abraham [facility] Note Date/Time December 01, 2024 8:2 6pm [facility] Medical Records Department [address] [place] [address] Progress Note - Hospitalist 12/01/242020 MR#: [id number] Acct: [id number] Name: GERRY RICO Rep #:[id number] : 1945 79 From: Abraham niman DO PCP: Dr. Marycarmen Rodriguez, DO Status:ADM IN Location: [place] [address] Hospitalist Note Stroke alert called around 7 PM. Last known well 6:55 PM. Patient reported to [facility] that he had left facial numbness [...] Cosigner Signature (if applicable): CC: ~ Signed [facility] Work Phone: 1(729) 174-945008-01-2025 Radiology Diagnostic study [facility]08-01-2025 Progress note Author Nickie Danielson [facility] Note Date/Time December 01, 2024 3:5 0pm [facility] Medical Records Department [address] [place] [address] Progress Note - Hospitalist 12/01/24712 MR#: [id number] Acct: [id number] Name: GERRY RICO Rep #:[id number] : 1945 79 From: Nickie Danielson DO PCP: Dr. Marycarmen Rodriguez, DO Status:ADM IN Location: [place] [address] Reason for Visit Chief Complaint: STEMI Subjective [...] 80.9 H, Lymph % (Auto) 10.1 L, [place] % (Auto) 7.7, Eos % (Auto) 0.4, Baso % (Auto) 0.2, Absolute Neuts (auto) 15.5 H, Absolute Lymphs (auto) 1.93, Nucleated RBC % 0.1, PT 16.1 H, INR 1.3, APTT 112.9 H*, Sodium 135, Potassium 4.4, Chloride 98, Carbon Omocrwk44.3 L, Anion Gap 19 H, BUN 45 [...] evidence of acute pulmonary disease. Reading Location: [facility] Physical Exam Const alert, oriented x3, [...] stability with the with the platelet therapy SUSAN on CKD stage IV - Baseline renal [...] subcu heparin Charges/Coding Visit Charges Inpatient E&M: 65539 Subs Hosp L2 12/01/24 5450 <Electronically signed by Nickie Danielson DO> Cosigner Signature (if applicable): CC: ~ Signed [facility] Work Phone: 1(347) 772-106108-01-2025 Progress note Author Marcin Araujo [facility] Note Date/Time December 01, 2024 7:3 7am [facility] System Medical Records Department [address] [place] [address] Progress Note - Cardiology 12/01/24 0734 MR#: [id number] Acct: [id number] Name: GERRY RICO Rep #:[id number] : 1945 79 From: Marcin Araujo MD PCP: Dr. Marycarmen Rodriguez, Status:ADM IN Location: ICU CVICU20 3-1 Subjective [...] 80.9 H, Lymph % (Auto) 10.1 L, [place] % (Auto) 7.7, Eos % (Auto) 0.4, Baso % (Auto) 0.2, Absolute Neuts (auto) 15.5 H, Absolute Lymphs (auto) 1.93, Nucleated RBC % 0.1, PT 16.1 H, INR 1.3, APTT 112.9 H*, Sodium 135, Potassium 4.4, Chloride 98, Carbon Wrprgoj10.3 L, Anion Gap 19 H, BUN 45 [...] 80.9 H, Lymph % (Auto) 10.1 L, [place] % (Auto) 7.7, Eos % (Auto) 0.4, [...] evidence of acute pulmonary disease. Reading Location: [facility] Physical Exam Const alert, oriented x3 [...] Cosigner Signature (if applicable): CC: ~ Signed [facility] Work Phone: 1(182) 338-849307-31-2025 Discharge summary Author Isael Bernabe [facility] Note Date/Time November 30, 2024 9:35 pm [facility] Medical Records Department [address] [place] [address] Emergency Department Summary 11/30/24 MR#: [id number] Acct: [id number] Name: GERRY RICO Rep #:[id number] : 1945 79 [...] was sent, they administeredaspirin, Brilinta, and heparin. [facility] Medical History Diabetes mellitus Chronic kidney [...] kidney disease, stage 3 Atherosclerotic heart disease [place] coronary artery w/angina pectoris Type 2 diabetes [...] hydrocodone-acetaminophen 5-325mg 1 tab PO TID PRN germain n 11/22/24 11/27/24 History 5mg-325mg furosemide 80 [...] laboratory work that was requested by the [facility] C[facility]. Does not have elevation of his white [...] 80.9 H Lymph % (Auto) 10.1 L [place] % (Auto) 7.7 Eos % (Auto) 0.4 [...] myocardial infarction Disposition Disposition: Acute Care Hospital [facility] Discharge Date/Time: 11/30/24 15:21 What to do if you have Problems For any increased pain, shortness of breath, bleeding, nausea or vomiting, chestpain, or any unexpected problems, contact your Primary Care Provider. Call [facility] ([phone]) or report to the closest Emergency Room. Call 911 if necessary. 11/30/242 <Electronically signed by Isael Bernabe MD> Cosigner Signature (if applicable): CC: Dr. Marycarmen Rodriguez, DO ~ Signed [facility] Work Phone: 1(478) 181-677207-31-2025 Progress note Author Isael Bernabe [facility] Note Date/Time November 30, 2024 9:33 pm [facility] Medical Records Department [address] [place] [address] Quality Report 11/30/24 1605 MR#: [id number] Acct: [id number] Name: GERRY RICO Rep #:[id number] : 1945 79 From: Isael Bernabe MD PCP: Dr. Marycarmen Rodriguez DO Status:ADM IN Y Location: ICU CVICU20 3-1 STEMI STEMI ED Door Time / Other REG STEMI EKG Time (1) STEMI (ST elevation myocardial infarction): Acute 11/30/24 15:17 Balloon/Aspiration Date-Time Date of Balloon/Aspiration:: 11/30/24 Time of Balloon/Aspiration:: 15:37 11/30/243 <Electronically signed by Isael Bernabe MD> Date _ Isael Bernabe MD 11/30/24 1606 <Electronically signed by Donald Bill > Cosigner Signature (if applicable): Date Donald Bill CC: ~ Signed [facility] Work Phone: 1(174) 611-616307-31-2025 History and physical note Author Abraham Ridley [facility] Note Date/Time November 30, 2024 9:30 pm [facility] Medical Records Department [address] [place] [address] H&P Exam - Hospitalist 11/30/24 1705 MR#: [id number] Acct: [id number] Name: GERRY RICO Rep #:[id number] : 1945 79 From: Abraham inman DO PCP: Dr. Marycarmen Rodriguez, DO Status:ADM IN Location: ICU CVICU20 3-1 HPI - General General Date of Admission: 11/30/24 Date of Service: 11/30/24 Chief Complaint: STEMI HPI Narrative GERRY RICO, is a 79 M who presented to [facility] on 11/30/2024 as a STEMI alert. Follows with [facility] with complex CAD history, see office [...] STEMI. He was taken emergently to the [facility] and coronary angiography revealed a subacute stent [...] room air. No other acute concerns currently. [facility] Medical History Diabetes mellitus Chronic [...] kidney disease, stage 3 Atherosclerotic heart disease [place] coronary artery w/angina pectoris Type 2 diabetes [...] hydrocodone-acetaminophen 5-325mg 1 tab PO TID PRN germain n 11/22/24 11/27/24 History 5mg-325mg furosemide 80 [...] 80.9 H, Lymph % (Auto) 10.1 L, [place] % (Auto) 7.7, Eos % (Auto) 0.4, [...] Patient is a 79-year-old male who presented [facility] ED on 11/30/2024 as a STEMI alert. [...] home aspirin, statin, amlodipine, and Toprol. Given SUSAN as below, will hold home Lasix, losartan, spironolactone and metolazone for now. Appreciate cardiology recommendations on timing of restarting these medications. Echo ordered. Continue cardiac monitoring. 2. SUSAN on CKD stage IIIb ? Creatinine 3.10 [...] with hyperglycemia: Blood glucose 328 on admit. MqfrH2q from 2022 was 7.7%. Repeat A1c ordered. [...] 75 minutes. Charges/Coding Visit Charges Inpatient E&M: 99408 Init Hosp L3 11/30/240 <Electronically signed by Abraham Ridley DO> Cosigner Signature (if applicable): CC: Dr. Abraham Ridley DO; Dr. Marycarmen Rodriguez DO~ Signed [facility] Work Phone: 1(876) 261-870007-31-2025 Radiology Diagnostic study [facility]2025 Consult note Author Jose Hay [facility] Note Date/Time November 30, 2024 4:51 pm [facility] Medical Records Department [address] [place] [address] Consultation - Cardiology 11/30/24 1642 MR#: [id number] Acct: [id number] Name: GERRY RICO Rep #:[id number] : 1945 79 [...] infarction. Subsequently a STEMI alert was called. [facility] Medical History (Updated 11/30/24 @ 16:48 by [...] kidney disease, stage 3 Atherosclerotic heart disease [place] coronary artery w/angina pectoris Type 2 diabetes [...] 650 mg PO Q6H PRN Pain 1-1 0/10/12/23 Unknown History glimepiride 4 mg tablet 4 [...] hydrocodone-acetaminophen 5-325mg 1 tab PO TID PRN germain n 11/22/24 11/27/24 History 5mg-325mg furosemide 80 [...] 80.9 H, Lymph % (Auto) 10.1 L, [place] % (Auto) 7.7, Eos % (Auto) 0.4, [...] 80.9 H, Lymph % (Auto) 10.1 L, [place] % (Auto) 7.7, Eos % (Auto) 0.4, [...] Hay MD; Dr. Marycarmen Rodriguez DO~ Signed [facility] Work Phone: 1(128) 979-599307-29-2025 Consult note Author Cyndie Frye [facility] Note Date/Time November 28, 2024 12:2 8pm [facility] Medical Records Department [address] [place] [address] Counseling Note - Pharmacy 11/28/24 0920 MR#: [id number] Acct: [id number] Name: GERRY RICO Rep #:[id number] : 1945 79 From: Cyndie Frye PCP: Dr. Marycarmen Rodriguez DO Status:ADM EDMUND Y Location: [place] [address] Pharmacy [place] Med Reconciliation Pharmacy Service has performed discharge [...] Signature (if applicable): Date CC: ~ Signed [facility] Work Phone: 1(433) 287-541907-28-2025 Discharge summary Author Jose Hay [facility] Note Date/Time November 27, 2024 11:3 5am [facility] Medical Records Department [address] [place] [address] Instructions for Home/Discharge Instructions 11/27/24 1128 MR#: [id number] Acct: [id number] Name: GERRY RICO Rep #:[id number] : 1945 79 [...] Provider: Jose Hay Primary Care Provider: Marycarmen Rodirguez Instructions Print Language: Croatian Discharge Orders/Prescriptions Prescriptions: New furosemide 80 mg [...] CC: Dr. Marycarmen Rodriguez DO ~ Signed [facility] Work Phone: 1(447) 721-193307-27-2025 Radiology Diagnostic study [facility]07-27-2025 Radiology Diagnostic study [facility]07-27-2025 Radiology Diagnostic study [facility] 11-26-2024 Radiology Diagnostic study [facility]07-27-2025 Radiology Diagnostic study [facility]07-27-2025 Radiology Diagnostic study [facility]07-27-2025 Discharge summary Author Isael Bernabe [facility] Note Date/Time November 26, 2024 9:41 pm [facility] Medical Records Department [address] [place] [address] Emergency Department Summary 11/26/24 MR#: [id number] Acct: [id number] Name: GERRY RICO Rep #:[id number] : 1945 79 [...] an outpatient tomorrow. He was at a [employer] today, walking down the steps of a [...] presents status post fall with chest heaviness. [facility] Medical History Shortness of breath Unstable [...] kidney disease, stage 3 Atherosclerotic heart disease [place] coronary artery w/angina pectoris Type 2 diabetes [...] hydrocodone-acetaminophen 5-325mg 1 tab PO TID PRN germain n 11/22/24 Unknown History 5mg-325mg Allergy/AdvReac Type [...] cleansed and dressed. He was given 1 Union which he usually takes at home for pain. He was able to ambulate without difficulty. At this point in time, he is motivated for discharge. I do not feel that he requires admission at this time or observation. I feel he can be discharged to follow-upwith his cardiac catheterization tomorrow morning. Patient will continue his Union at home and follow-up as previously directed. [...] 71.8 H Lymph % (Auto) 16.7 L [place] % (Auto) 9.5 Eos % (Auto) 1.3 [...] IMPRESSION: No acute intracranial process. Reading Location: [facility] Cervical Spine CT 11/26/24 18:03 IMPRESSION: No acute compression deformity, fracture, or subluxation. Moderate multilevel degenerative changes of the cervical spine. Cervical ACDF with interbody spacers spanning C4-C6 without hardware complications. Reading Location: [facility] Chest X-Ray 11/26/24 18:03 IMPRESSION: Negative for edema Reading Location: [facility] Knee X-Ray 11/26/24 18:03 IMPRESSION: Degenerative changes without fracture Reading Location: [facility] Hand X-Ray 11/26/24 18:07 IMPRESSION: Degenerative changes. No visible fracture. Reading Location: [facility] Knee X-Ray 11/26/24 18:07 IMPRESSION: Joint effusion Reading Location: [facility] Management Discussion w/another healthcare provider: Director Business Systems (Dr. Araujo) Discharge Plan Triage Chief Complaint: [...] with new or worsening symptoms. Print Language: Croatian Disposition Disposition: Home, Self Care What to do if you have Problems For any increased pain, shortness of breath, bleeding, nausea or vomiting, chestpain, or any unexpected problems, contact your Primary Care Provider. Call [facility] ([phone]) or report to the closest Emergency Room. Call 911 if necessary. 11/26/242140 <Electronically signed by Isael Bernabe MD> Cosigner Signature (if applicable): CC: Dr. Marycarmen Rodriguez DO ~ Signed [facility] Work Phone: 1(791) 267-723207-27-2025 Hospital Discharge instructionsAdditional Instructions Have your cardiac catheterization performed tomorrow as scheduled at 8:30 in the morning. Return with new or worsening symptoms.[facility] Work Phone: 1(368) 501-779207-24-2025 Radiology Diagnostic study [facility]07-21-2025 Radiology Diagnostic study [facility]05-21-2025 Evaluation note* Diagnosis Onset Date Resolution Status Admit Date COPD (chronic obstructive pulmonary disease) chronic September 20 10:13am Diastolic heart failure chronic M ay 2024 10:13am Obesity chronic September 20, 2024 10:13am Obstructive sleep apnea chronic M 2024 10:13am Shortness of breath acute October 25, 2024 7:54am Bilateral lower extremity edema 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 25, 2024 7:54am Chest pain chronic October 25 7:54am Chronic kidney disease, stage 3 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 25, 2024 7:54am Coronary artery [...] Obstructive sleep apnea chronic J 2024 10:00am [facility] Work Phone: 1(993) 589-312105-21-2025 Evaluation note* Diagnosis Onset Date Resolution Status Admit Date COPD (chronic obstructive pulmonary disease) chronic September 20 10:13am Diastolic heart failure chronic M 2024 10:13am Obesity chronic September 20, 2024 10:13am Obstructive sleep apnea chronic ay 2024 10:13am Shortness of breath acute October 25, 2024 7:54am Bilateral lower extremity edema 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 25, 2024 7:54am Chest pain chronic October 25 7:54am Chronic kidney disease, stage 3 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 25, 2024 7:54am Coronary artery disease chronic 2024 7:54am Essential hypertension chronic 2024 7:54am [...] 22, 2024 10:53am Bilateral lower extremity edema 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 November 22, 2024 10:53am Chest pain chronic November 22 10:53am Chronic kidney disease, stage 3 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 November 22, 2024 10:53am Essential hypertension chronic Ju ly 2024 10:53am Hyperlipidemia chronic November 22, 2024 10:53am Obesity chronic November 22 10:53am Type 2 diabetes mellitus wit hout complications chronic November 22, 2024 10:53am [facility] Work Phone: 1(963) 331-588605-21-2025 Evaluation note* Diagnosis Onset Date Resolution Status Admit Date COPD (chronic obstructive pulmonary disease) chronic September 20 10:13am Diastolic heart failure chronic M ay 2024 10:13am Obesity chronic September 20, 2024 10:13am Obstructive sleep apnea chronic M ay 2024 10:13am Shortness of breath acute October 25, 2024 7:54am Bilateral lower extremity edema 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 25, 2024 7:54am Chest pain chronic October 25 7:54am Chronic kidney disease, stage 3 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 25, 2024 7:54am Coronary artery [...] 22, 2024 10:53am Bilateral lower extremity edema 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 November 22, 2024 10:53am Chest pain chronic November 22 10:53am Chronic kidney disease, stage 3 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 November 22, 2024 10:53am Essential hypertension [...] 2024 4:59pm Chronic kidney disease, stage 3 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 November 30, 2024 4:59pm Coronary artery disease chronic J shannon 2024 4:59pm Dyslipidemia chronic November 30, 2 025 4:59pm Essential hypertension chronic Ju ly 2024 4:59pm [facility] Work Phone: 1(794) 578-752605-21-2025 Evaluation note* Diagnosis Onset Date Resolution Status Admit Date COPD (chronic obstructive pulmonary disease) chronic September 20 10:13am Diastolic heart failure chronic [facility] 2024 10:13am Obesity chronic September 20, 2024 10:13am Obstructive sleep apnea chronic [facility] 2024 10:13am Shortness of breath acute October [...] Essential hypertension chronic Ju ly 2024 4:59pm [facility] Work Phone: 1(483) 761-266505-21-2025 Evaluation note* Diagnosis Onset Date Resolution Status [...] November 30, 025 4:59pm STEMI (ST elevation myocardial infarction) [...] sleep apnea chronic A ugust 2024 8:29pm [facility] Work Phone: 1(462) 687-345605-21-2025 Evaluation note* Diagnosis Onset Date Resolution Status [...] 2:01am Dyslipidemia inactive December 03, 2024 2:01am [employer] Work Phone: 1(802) 237-113805-21-2025 Evaluation note* Diagnosis Onset Date Resolution Status Admit Date COPD (chronic obstructive pulmonary disease) chronic September 20 10:13am Diastolic heart failure chronic 2024 10:13am Obesity chronic September 20, 2024 10:13am Obstructive sleep apnea chronic M 2024 10:13am Shortness of breath acute October 25, 2024 7:54am Bilateral lower extremity edema chronic October 25, 2024 7:54am Hyperlipidemia chronic October 25, 2024 7:54am Obesity chronic October 25 7:54am Type 2 diabetes mellitus without complications chronic October 25, 2024 7:54am Chest pain resolved October 25 7:54am Coronary artery disease inactive J une 2024 7:54am Essential hypertension inactive 2024 7:54am Chronic kidney disease, stag e 3 deleted October 25, 2024 7:54am Asthma acute October 31, 2024 10:00am Central sleep apnea acute October 31, 2024 10:00am COPD (chronic obstructive pulmonary disease) chronic October 31 10:00am Diastolic heart failure chronic 2024 10:00am Obesity chronic October 31, 2024 10:00am Obstructive sleep apnea chronic [facility]2024 10:00am Presence of stent in coronar y artery Aug, 2022 acute November 22, 2024 10:53am Shortness of breath acute November 22, 2024 10:53am Bilateral lower extremity edema chronic November 22, 2024 10:53am Hyperlipidemia chronic November 22, 2024 10:53am Obesity chronic November 22 10:53am Type 2 diabetes mellitus without complications chronic November 22, 2024 10:53am Chest pain resolved November 22 10:53am Essential hypertension inactive [facility] 2024 10:53am Chronic kidney disease, stag e 3 deleted November 22, 2024 10:53am Acute kidney injury superimposed on stage 4 chronic kidney disease acute October 4:58pm Leukocytosis acute November 30, 2 025 4:58pm Chest pain resolved November 30 4:58pm STEMI (ST elevation myocardial infarction) November 30, 2024 resolved October 4:58pm Chronic kidney disease inactive [facility] 2024 4:58pm Coronary artery disease inactive [facility] 2024 4:58pm Diabetes mellitus inactive November 302024 4:58pm Dyslipidemia inactive November 30, 2 025 4:58pm Essential hypertension inactive [facility] 2024 4:58pm Chronic kidney disease, stag e [...] ST elevation myocardial infarction (STEMI) acute Au 2024 4:24pm Shortness of breath acute 2024 4:24pm [facility] Work Phone: 1(675) 675-258405-21-2025 Evaluation note* Diagnosis Onset Date Resolution Status [...] of breath acute Augus t 2024 4:24pm [facility] Work Phone: 1(503) 249-670005-21-2025 Evaluation note* Diagnosis Onset Date Resolution Status Admit Date COPD (chronic obstructive pulmonary disease) chronic September 20 10:13am Diastolic heart failure chronic ay 2024 10:13am Obesity chronic September 20, 2024 10:13am Obstructive sleep apnea chronic [facility] 2024 10:13am Bilateral lower extremity edema chronic October 25, 2024 7:54am Hyperlipidemia chronic October 25, 2024 7:54am Obesity chronic October 25 7:54am Type 2 diabetes mellitus without complications chronic October 25, 2024 7:54am Chest pain resolved October 25 7:54am Shortness of breath resolved October 25, 2024 7:54am Coronary artery disease inactive J une 2024 7:54am Essential hypertension inactive ne 2024 7:54am Chronic kidney disease, stag [...] 03, 2024 2:01am Chronic kidney disease inactive Au 2024 [...] breath resolved 2024 10:14am Essential hypertension inactive [facility] 2024 10:14am Chronic kidney disease, stag e 3 deleted December 12 10:14am [employer] Work Phone: 1(168) 494-430705-21-2025 Evaluation note* Diagnosis Onset Date Resolution Status [...] October 25 7:54am Coronary artery disease inactive [facility] 2024 7:54am Chronic kidney disease, stage 3 deleted October 25, 2024 7:54am Asthma acute October 31, 2024 10:00am Central sleep apnea acute October 31, 2024 10:00am COPD (chronic obstructive pulmonary disease) chronic October 31 10:00am Diastolic heart failure chronic 2024 10:00am Obesity chronic October 31, 2024 10:00am Obstructive sleep apnea chronic 2024 10:00am Presence of stent in coronary [...] 03, 2024 2:01am Chronic kidney disease inactive Au taj 2024 2:01am Coronary artery disease inactive A ugust 3rd, 2025 2:01am Diabetes mellitus inactive December 03, 2024 2:01am Dyslipidemia inactive December 03, 2024 2:01am History of acute inferior wall UT inactive December 03, 2024 2:01am Shortness of breath chronic Decus t 2024 4:24pm DEAN (dyspnea on exertion) resolved December 07, 2024 4:24pm Chest pain inactive December 07 4:24pm Recent ST elevation myocardial infarction (STEMI) inactive December 07, 2024 4:24pm Presence of stent in coronary artery Aug, 2022 acute December 12 10:14am Bilateral lower extremity edema chronic December 12 10:14am Essential hypertension chronic Au taj 2024 10:14am Hyperlipidemia chronic December 10:14am Obesity chronic December 12, 10:14am Shortness of breath chronic t 2024 10:14am Type 2 diabetes mellitus without complications chronic December 10:14am Chest pain resolved December 12 10:14am Chronic kidney disease, stage 3 deleted December 12 10:14am Central sleep apnea acute Decus t 2024 2:35pm Chest pain acute December 15, 025 2:35pm Pericardial effusion acute Decu st 2024 2:35pm Angina pectoris chronic December 152024 2:35pm CKD (chronic kidney disease) stage 4, GFR 15-29 ml/min chronic December 15, 2024 2:35pm Diastolic heart failure chronic A [facility] 2024 2:35pm Essential hypertension chronic [facility] 2024 2:35pm History of percutaneous transluminal coronary angioplasty August 18, 2018 chronic December 15 2:35pm Obstructive sleep apnea chronic A ugust 2024 2:35pm Type 2 diabetes mellitus without complications chronic December 2:35pm [facility] Work Phone: 1(508) 103-152805-21-2025 Evaluation note* Diagnosis Onset Date Resolution Status Admit Date COPD (chronic obstructive pulmonary disease) inactive September 20 10:13am Diastolic heart failure inactive [facility] 2024 10:13am Obesity inactive September 20, 2024 10:13am Obstructive sleep apnea inactive [facility] 2024 10:13am Chest pain resolved October 25 7:54am Bilateral lower extremity edema inactive October 25, 2024 7:54am Coronary artery disease [facility] 2024 7:54am Essential hypertension inactive 2024 7:54am [...] October 31 10:00am Diastolic heart failure inactive [facility] 2024 10:00am Obesity inactive October 31, 2024 10:00am Obstructive sleep apnea inactive [facility] 2024 10:00am Chest pain resolved November 22 10:53am Bilateral lower extremity edema inactive November 22, 2024 10:53am Essential hypertension inactive [facility] 2024 10:53am Hyperlipidemia inactive November 22, 2024 [...] inactive October 4:58pm Chronic kidney disease inactive [facility] 2024 4:58pm Coronary artery disease inactive J shannon 2024 4:58pm Diabetes mellitus inactive November 302024 4:58pm Dyslipidemia inactive November 30 025 4:58pm Essential hypertension inactive [facility] 2024 4:58pm Chronic kidney disease, stage 3 [...] 03, 2024 2:01am Chronic kidney disease inactive [facility] 2024 2:01am CKD (chronic kidney disease) stage 4, GFR 15-29 ml/min inactive December 03, 2024 2:01am Coronary artery disease inactive [facility] 2024 2:01am Diabetes mellitus inactive December 03, 2024 2:01am Dyslipidemia inactive December 03, 2024 2:01am History of acute inferior wall UT inactive December 03, 2024 2:01am Hyperlipidemia inactive December 2:01am Obesity inactive December 03 2:01am Obesity (BMI 30-39.9) inactive Dec 2024 2:01am Obstructive sleep apnea inactive [facility] 2024 2:01am DEAN (dyspnea on exertion) resolved December 07, 2024 4:24pm Chest pain inactive December 07 4:24pm Recent ST elevation myocardial infarction (STEMI) inactive December 07, 2024 4:24pm Shortness of breath inactive [facility] 2024 4:24pm Chest pain resolved December 12, 025 10:14am Bilateral lower extremity edema inactive December 12 10:14am Essential hypertension inactive [facility] 2024 10:14am Hyperlipidemia inactive December 10:14am Obesity inactive December 12, 2 025 10:14am Presence of stent in coronary artery Aug, 2022 inactive December 12 10:14am Shortness of breath inactive [facility] 2024 10:14am Type 2 diabetes mellitus without complications inactive December 10:14am Chronic kidney disease, stage 3 deleted December 12 10:14am Angina pectoris inactive December 152024 2:35pm Central sleep apnea inactive [facility] 2024 2:35pm Chest pain inactive December 15, 2 025 2:35pm CKD (chronic kidney disease) stage 4, GFR 15-29 ml/min inactive December 15, 2024 2:35pm Diastolic heart failure inactive A ugust 2024 2:35pm Essential hypertension inactive Au taj 2024 2:35pm History of percutaneous transluminal coronary angioplasty August 18, 2018 inactive December 15 2:35pm Obstructive sleep apnea inactive A ugust 2024 2:35pm Pericardial effusion inactive Augu st 2024 2:35pm Type 2 diabetes mellitus without complications inactive December 2:35pm BRBPR (bright red blood per rectum) acute December 24 1:59am Coronary artery disease acute A ugust 2024 1:59am Diverticulosis acute December 1:59am GI (gastrointestinal bleed) acute December 24, 2024 1:59am CHF (congestive heart failure) inactive December 24 1:59am COPD (chronic obstructive pulmonary disease) inactive December 24, 2024 1:59am Hyperlipidemia inactive December 1:59am Obesity inactive December 24, 1:59am [employer] Work Phone: 1(443) 400-534505-21-2025 Evaluation note* Diagnosis Onset Date Resolution Status Admit Date COPD (chronic obstructive pulmonary disease) inactive September 20 10:13am Diastolic heart failure inactive 2024 10:13am Obesity inactive September 20, 2024 10:13am Obstructive sleep apnea inactive 2024 10:13am Chest pain resolved October 25 [...] October 31 10:00am Diastolic heart failure inactive [email or web address] 10:00am Obesity inactive October 31, 2024 10:00am Obstructive sleep apnea inactive J [email or web address] 10:00am Chest pain resolved November 22 10:53am [...] inactive October 4:58pm Chronic kidney disease inactive [facility] 2024 4:58pm Coronary artery disease inactive J [facility] 2024 4:58pm Diabetes mellitus inactive November 302024 4:58pm Dyslipidemia inactive November 30, 2 025 4:58pm Essential hypertension inactive [facility] 2024 4:58pm Chronic kidney disease, stage 3 [...] wall UT inactive December 03, 2024 2:01am Hyperlipidemia inactive December 2:01am Obesity inactive December 03 2:01am Obesity (BMI 30-39.9) inactive Dec 2:01am Obstructive sleep apnea inactive 2024 2:01am DEAN (dyspnea on exertion) resolved December 07, 2024 4:24pm Chest pain inactive December 07 4:24pm Recent ST elevation myocardial infarction (STEMI) inactive December 07, 2024 4:24pm Shortness of breath inactive 2024 4:24pm Chest pain resolved December 12, 2 025 10:14am Bilateral lower extremity edema inactive December 12 10:14am Essential hypertension inactive [facility] 2024 10:14am Hyperlipidemia inactive December 10:14am Obesity inactive December 12, 2 025 10:14am Presence of stent in coronary artery Aug, 2022 inactive December 12 10:14am Shortness of breath inactive 2024 10:14am Type 2 diabetes mellitus without complications inactive December 10:14am Chronic kidney disease, stage 3 deleted December 12 10:14am Angina pectoris inactive December 152024 2:35pm Central sleep apnea inactive [facility] t 2024 2:35pm Chest pain inactive December 15, 2 025 2:35pm CKD (chronic kidney disease) stage 4, GFR 15-29 ml/min inactive December 15, 2024 2:35pm Diastolic heart failure inactive A [facility] 2024 2:35pm Essential hypertension inactive [facility] 2024 2:35pm History of percutaneous transluminal coronary angioplasty August 18, 2018 inactive December 15 2:35pm Obstructive sleep apnea inactive A [facility] 2024 2:35pm Pericardial effusion inactive [facility]u [facility] 2024 2:35pm Type 2 diabetes mellitus without complications inactive December 2:35pm Coronary artery disease acute A 2024 1:59am Diverticulosis acute December 1:59am GI (gastrointestinal bleed) acute December 24, 2024 1:59am BRBPR (bright red blood per rectum) inactive December 24 1:59am CHF (congestive heart failure) inactive December 24 1:59am COPD (chronic obstructive pulmonary disease) inactive December 24, 2024 1:59am Hyperlipidemia inactive December 1:59am Obesity inactive December 24, 1:59am [facility] Work Phone: 1(939) 619-535403-18-2025 Procedure notey [facility]/Neurology [address] [place] [address] MR#: [id number] Acct: [id number] Name: GERRY RICO Rep #:[id number] : 1945 78 From: Zen East DO Referring Dr: Marni Horn GROUP CONTROLLER GROUP CONTROLLER-C Status: REG CLI Location: PSN Date: Sex: M C PSN 6 Minute Walk Test 6 Minute Walk Test 6 Minute Walk Test: 6 Minute Walk Test PSN:6-Minute Walk Test Start: 07/18/24 06:38 Freq: Status: Active Protocol: RESP.6MINW Document 07/18/24 06:00 [facility] (Rec: 07/18/24 06:47 [facility] [id number]) 6 Minute Walk Test Date Performed 07/18/24 Time Performed 06:00 Height 5 ft 9 in Weight: 230 lb Weight in Pounds 230.[address]: Marni Horn GROUP CONTROLLER Assistive device Cane used: Pre-test Oxygen Delivery [...] Date Dictated: 07/18/24 1032 Date Transcribed: 07/18/241031 Molecular Biology Scientist: Dr. 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 25, 2024 7:54am Coronary artery disease chronic J 2024 7:54am Essential hypertension chronic Ju 2024 7:54am Hyperlipidemia chronic October 25, 2024 7:54am Obesity chronic October 25 7:54am Type 2 diabetes mellitus wit hout complications chronic October 25, 2024 7:54am Chest pain inactive October 25 7:54am [employer] Work Phone: 1(897) 229-297703-03-2025 Evaluation note* Diagnosis Onset Date Resolution Status [...] 25, 2024 7:54am Bilateral lower extremity edema 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 25, 2024 7:54am Chest pain chronic October 25 7:54am Chronic kidney disease, stage 3 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 25, 2024 7:54am Coronary artery disease chronic J une 2024 7:54am Essential hypertension chronic Ju ne 2024 7:54am Hyperlipidemia chronic October 25, 2024 7:54am Obesity chronic October 25 7:54am Type 2 diabetes mellitus wit hout complications chronic October 25, 2024 7:54am [facility] Work Phone: 1([phone]) 265-209503-03-2025 Evaluation note* Diagnosis Onset Date Resolution Status [...] 25, 2024 7:54am Bilateral lower extremity edema 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 25, 2024 7:54am Chest pain chronic October 25 7:54am Chronic kidney disease, stage 3 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 25, 2024 7:54am Coronary artery [...] Obstructive sleep apnea chronic J shannon2024 10:00am [facility] Work Phone: 1([phone]) 708-866203-03-2025 Evaluation note* Diagnosis Onset Date Resolution Status [...] 25, 2024 7:54am Bilateral lower extremity edema 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] sleep apnea chronic M arch 2024 1:10pm [facility] Work Phone: 1(372) 731-349811-18-2024 Evaluation note* Diagnosis Onset Date Resolution Status Admit Date Bilateral lower extremity edema 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 March 20, 2024 10:31am Chronic kidney disease, stage 3 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 March 20, 2024 10:31am Coronary artery disease chronic N ovember 2023 10:31am Essential hypertension chronic No vember 2023 10:31am Hyperlipidemia chronic March 032023 10:31am Obesity chronic March 20, 2024 10:31am Type 2 diabetes mellitus without complications chronic March 032023 10:31am DEAN (dyspnea on exertion) acute April 17, 2024 3:51pm Bilateral lower extremity edema 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 [facility] 01, 2022 9:55am Note Date/Time September 01, 2022 8:37am [facility] Medical Records Department [address] [place] [address] Instructions for Home/Discharge Instructions 09/01/22834 MR#: [id number] Acct: [id number] Name: GERRY RICO Rep #:[id number] : 1945 77 [...] CC: Dr. Marycarmen Rodriguez DO ~ Signed [facility] Work Phone: [phone]) 912-318008-26-2021 Miscellaneous Notes* Assessment & Plan Note - Eladio Ingram MD - 12/26/2020 11:08 AM EDT Associated Problem(s): Hyperlipidemia He remains on high-dose, high potency statin therapy which he tolerates well. He assures me that his lipids are under good control. No changes were made today * Assessment & Plan Note - Eladio Ingram MD - 12/26/2020 11:08 AM EDT Associated Problem(s): Hypertension Gerry's blood pressure was mildly elevated in the [...] with any necessary intervention. documented in this [id number] History of Present illness Narrative* Eladio Ingram MD - 12/26/2020 11:05 AM EDT I saw Gerry Rico in follow up in the office on 12/26/20. Gerry apparently has been doing poorly recently with [...] hopefully proceed with any necessary intervention. Hypertension Gerry's blood pressure was mildly elevated in the [...] patient is not nervous/anxious. documented in this [id number] Miscellaneous Notes* Assessment & Plan Note - Sagar Acuña CNP - 10/09/2020 11:44 AM EDT Associated Problem(s): Coronary artery disease involving [place] coronary artery of [place] heart without angina pectoris Multiple previous cardiac catheterizations with intervention. Most recent cardiac caths were performed in 2018, August 03 at [place], and August 18 at [facility] in [place]. 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 The notes from the cath at [facility] indicate that they were able to get a wire across the the lesion and the circumflex was dilated. The note states If symptoms recur can consider double layer of stent in the anomalous LCx. Gerry continues to take ASA, Plavix, high dose.high potency statin, Imdur (states Ranexa was previously ineffective), Lopressor, Aldactone. Gerry feels that a cardiac cath would be [...] size and systolic function, valves essentially NL. Gerry has an ECHO scheduled for next week. Discussed that Dr. Ingram will review the results from today's visit and the ECHO results to determine if he recommends a cardiac cath. Gerry verbalizes understanding. I reviewed use of nitroglycerin and if he has unrelieved pain to call 911 or go to the nearest emergency department. * Assessment & Plan Note - Sagar Acuña CNP - 10/09/2020 11:44 AM EDT Associated Problem(s): MATTHEW (obstructive sleep apnea) Known MATTHEW (obstructive sleep apnea) without CPAP use. * Assessment & Plan Note - Sagar Acuña CNP - 10/09/2020 11:37 AM EDT [...] hyperglycemia but a reasonable A1C. I asked Gerry to check his blood glucose levels prior to taking Amaryl. If he isn't going to eat breakfast, which is his normal, I asked him to take it instead with lunch to try and reduce the hypoglycemia frequency and intensity. I also asked Gerry to stop drinking regular soda on a routine basis. * Assessment & Plan Note - Sagar Acuña CNP - 10/09/2020 11:32 AM EDT Associated Problem(s): Hypertension Blood pressure mildly elevated upon presentation, it did come down after sitting. Gerry admits thathe does forget some of his [...] intolerance, and chest pressure. documented in this [id number] History of Present illness Narrative* Sagar Acuña CNP - 10/09/2020 11:19 AM EDT [facility] [address] [facility] [id number] Assessment & Plan: Hypertension Blood pressure mildly elevated upon presentation, it did come down after sitting. Gerry admits thathe does forget some of his [...] hyperglycemia but a reasonable A1C. I asked Gerry to check his blood glucose levels prior to taking Amaryl. If he isn't going to eat breakfast, which is his normal, I asked him to take it instead with lunch to try and reduce the hypoglycemia frequency and intensity. I also asked Gerry to stop drinking regular soda on a routine basis. MATTHEW (obstructive sleep apnea) Known MATTHEW (obstructive sleep apnea) without CPAP use. Coronary artery disease involving [place] coronary artery of [place] heart without angina pectoris Multiple previous cardiac catheterizations with intervention. Most recent cardiac caths were performed in 2018, August 03 at [facility], and August 18 at [facility] in [place]. 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 The notes from the cath at [facility] indicate that they were able to get a wire across the the lesion and the circumflex was dilated. The note states If symptoms recur can consider double layer of stent in the anomalous LCx. Gerry continues to take ASA, Plavix, high dose.high potency statin, Imdur (states Ranexa was previously ineffective), Lopressor, Aldactone. Gerry feels that a cardiac cath would be [...] size and systolic function, valves essentially NL. Gerry has an ECHO scheduled for next week. Discussed that Dr. Ingram will review the results from today's visit and the ECHO results to determine if he recommends a cardiac cath. Gerry verbalizes understanding. I reviewed use of nitroglycerin and if he has unrelieved pain to call 911 or go to the nearest emergency department. Subjective: Gerry Rico is a 75 y.o. male seen in the office today for Chest Pain (SOB) HPI: Gerry Rico is seen in the office today to re-establish care. He has been following at [facility] and [facility] for his cardiology care over the past 4 years. 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 Gerry has long-standing coronary artery disease and his history is primarily obtained through records from [facility]. Gerry is uncertain of many of the dates related to multiple tests and interventions he has had in the past 3 years. Gerry states that he has noticed an increase in exercise intolerance over the past 3-4 weeks. 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 and became quite short of breath, experienced chest tightness and profuse sweating. He states he did not take nitroglycerin as he did not have it with him and does not carry it routinely. The chest discomfort radiated across his chest but did not radiate to his neck/jaw, arms, or back. He denies lightheadedness, syncope or near syncope. Gerry does have COPD and is a former. [...] Peripheral vascular disease (HCC) Sleep apnea Stroke (HCC) Testicle swelling Past Surgical History: Procedure Laterality Date CARDIAC CATHETERIZATION N/A 01/04/2015 Left Heart Cath,Stent, EF 60%; Eladio Ingram [place] [facility] [place] CARDIAC CATHETERIZATION N/A 01/28/2015 Left Heart Cath, EF 60%; Eladio Ingram MD; [facility] [place] CARDIAC CATHETERIZATION N/A 06/18/2015 Left Heart Cath, Right Upper Extremity Angiogram, EF 60%; Eladio Ingram MD; [facility] [place] CARDIAC CATHETERIZATION N/A 03/17/2016 Procedure: Left and Right Heart Cath Poss Stent; Surgeon: Eladio Ingram MD; [place] [facility] [place]; Service: CARDIAC CATHETERIZATION 03/22/2014 EF 60% CARDIAC CATHETERIZATION 06/29/2013 EF 60% CARDIAC CATHETERIZATION 09/08/2012 EF 55% CARDIAC CATHETERIZATION 03/22/2014 EF 60% CARDIAC CATHETERIZATION Right 10/15/2016 Procedure: Left Heart Cath Possible PTCA/Stent; Surgeon: Merritt Arthur MD; [place] [facility]; Service: CHOLECYSTECTOMY CORONARY ANGIOPLASTY WITH STENT [...] ectopy, no acute changes. 50 minutes spent [id number] with patient Follow Up Ordered: Return for appointment as scheduled for follow up based on test results. Sagar Acuña CNP * Deisi March RN - [...] patient is not nervous/anxious. documented in this [id number] NotePatient Outreach (COVAMN) GERRY RICO ([id number]) 1945 M Date Time Provider Department 06/25/20 PETRONA TELLES During your visit today, we recorded the following information about you: Allergies As of Date: 06/25/2020 (No Known Allergies) Date Reviewed: 08/19/2018 Reviewed by: Moise (Marcin) MARCIN Mcgraw - Fully Assessed Order(s):SARS-COVID VACCINE 1ST DOSE APPT [[id number]] Order #: [id number] FUTURE Prescriptions as of 06/25/2020 Sig: CLOPIDOGREL [...] (HCC) [N17.9] 08/15/2018 Coronary artery disease involving [place] smith*08/15/2018 Stented coronary artery [Z95.5] 08/15/2018 Letter Text Encounter Status:Closed by EPIC, PRODUSER on [facility]20[facility] Consult note Author Jose Hay [facility] Note Date/Time November 30, 2024 4:51 pm [facility] Medical Records Department [address] [place] [address] Consultation - Cardiology 11/30/24 1642 MR#: [id number] Acct: [id number] Name: GERRY RICO Rep #:[id number] : 1945 79 [...] infarction. Subsequently a STEMI alert was called. [facility] Medical History (Updated 11/30/24 @ 16:48 by [...] kidney disease, stage 3 Atherosclerotic heart disease [place] coronary artery w/angina pectoris Type 2 diabetes mellitus without complications Hyperlipidemia Obesity Home Medications ?Medication ?Instructions ?Recorded ?Last Taken ?Type aspirin 81 mg tablet,delayed 81 mg [facility] 10/11/23 History release maintenance mirtazapine [...] hydrocodone-acetaminophen 5-325mg 1 tab PO TID PRN germain n 11/22/24 11/27/24 History 5mg-325mg furosemide 80 [...] 80.9 H, Lymph % (Auto) 10.1 L, [place] % (Auto) 7.7, Eos % (Auto) 0.4, [...] 80.9 H, Lymph % (Auto) 10.1 L, [place] % (Auto) 7.7, Eos % (Auto) 0.4, [...] Hay MD; Dr. Marycarmen Rodriguez DO~ Signed [facility] Work Phone: Discharge summary Author Nickie Danielson [facility] Note Date/Time December 02, 2024 2:2 7pm [facility] Medical Records Department [address] [place] [address] Discharge Summary 12/02/24 1336 MR#: [id number] Acct: [id number] Name: GERRY RICO Rep #:[id number] : 1945 79 From: Nickie Danielson DO PCP: Dr. Marycarmen Rodriguez DO Status:ADM IN [facility] Prov[facility] Date of Admission: 11/30/24 [...] [facility]. The [...] inferior wall. He was taken emergency to [facility] and cardiac catheterization revealed subacute stent thrombosis [...] and aspirin. He was noted to have SUSAN on CKD. His losartan was the be [...] STEMI Facial numbness Leukocytosis Thrombocytopenia Rectal bleeding-resolved SUSAN on CKD stage IV-improving DM-2 CAD Essential [...] 78.9 H, Lymph % (Auto) 7.6 L, [place] % (Auto) 12.0 H, Eos % (Auto) [...] abnormality. 2. Age-related senescent changes. Reading Location: [id number] D/C Instructions Discharge Activity: Return to Normal [...] Rouse; Seymour John; Jamar Tapia; Chrissy Mccallum; Michael Good; Sarah Beth Candelaria; Jody Kwon; Fermin [...] Self Care Charges/Coding Visit Charges Inpatient E&M: 97988 Disch Hosp >30min 12/02/24 1427 <Electronically signed by Nickie Danielson DO> Cosigner Signature (if applicable): CC: Dr. Jose Hay MD; Dr. Nickie Danielson DO; Dr. Marycarmen Rodriguez DO~ Signed [facility] Work Phone: Discharge summary Author Alex Sanon [facility] Note Date/Time December 08, 2024 4:1 2pm [facility] Medical Records Department [address] [place] [address] Transfer to [facility] MR#: [id number] Acct: [id number] Name: GERRY RICO Rep #:[id number] : 1945 79 From: Alex Sanon MD PCP: Dr. Marycarmen Rodriguez DO Status:ADM EDMUND Certification of patient admission REQUIRED AT TIME OF ADMISSION. 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 [...] ? Patient was recently discharged to a [facility] facility plan is for patient to be [...] Uncertain Cause Additional Instructions / Restrictions: The traffic manager wanted to make sure you are taking [...] in before D/C Order can be placed): [facility] 12/08/24 9888 <Electronically signed by Alex Sanon MD> Cosigner Signature (if applicable): CC: Dr. Shaan Santos, DO; Dr. Marycarmen Rodriguez DO ~ [facility] Work Phone: Discharge summary Author Marycarmen Marlow [facility] Note Date/Time December 17, 2024 2: 06pm [facility] Medical Records Department [address] [place] [address] Transfer to [facility] MR#: [id number] Acct: [id number] Name: GERRY RICO Rep #:[id number] : 1945 79 From: Marycarmen Marlow DO PCP: Dr. Marycarmen Rodriguez DO Status:ADM IN Certification of patient admission REQUIRED AT TIME OF ADMISSION. I CERTIFY THAT POST-HOSPITAL ECF SERVICES ARE REQUIRED TO BE GIVEN ON AN IN-PATIENT BASIS BECAUSE OF THE ABOVE NAMED PATIENT'S NEED FOR JAIL CARE ON A CONTINUING BASIS FOR THE [...] multiple medical problems-patient will return to his [facility] facility when medically stable #9 acute protein [...] [Primary Care Provider] - Gustabo Pérez NP, GROUP CONTROLLER-C [Med Staff - Adv Practice Prof] - See Referral Note (In 3 to 4 weeks) Disposition Disposition (needs filled in before D/C Order can be placed): [facility] (6) Diastolic heart failure Qualifiers: Heart failure chronicity: chronic Qualified Code(s): I50.32 - Chronic diastolic (congestive) heart failure 12/17/24 1406 <Electronically signed by Marycarmen Marlow DO> Cosigner Signature (if applicable): CC: Dr. Marycarmen Rodriguez DO; Dr. Ramonita Herron MD; Dr. Sunil Faye MD ~ [facility] Work Phone: Evaluation note* Diagnosis Shortness of breath- [facility] DEAN (dyspnea on exertion)- Primary Other dyspnea and respiratory abnormality [facility] Diagnosis DEAN (dyspnea on exertion) Other dyspnea and respiratory abnormality Essential hypertension Unspecified essential hypertension Type 2 diabetes mellitus without complication, without long-term current use of insulin ([facility]) MATTHEW (obstructive sleep apnea) Obstructive sleep apnea (adult) (pediatric) Coronary artery disease involving [place] coronary artery of [place] heart without angina pectoris [facility] Shortness [facility] Diagnosis Essential hypertension- Primary Unspecified essential hypertension Atherosclerosis of [place] coronary artery with angina pectoris, 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) Mixed hyperlipidemia [facility] Diagnosis Chest pain, unspecified type- Primary [facility] Diagnosis Coronary artery disease involving [place] coronary artery of [place] heart with angina pectoris (HCC)- Primary [facility] Diagnosis Onset Date Resolution Status Dizziness acute Atherosclerotic heart diseas e [place] coronary artery w/angina pectoris chronic CHF (congestive heart failure) chronic Essential hypertension chron ic History of coronary artery stent placement August 13, 2017 chronic Hyperlipidemia [facility] Work Phone: Evaluation note* Diagnosis Onset Date Resolution Status Dizziness acute Atherosclerotic heart diseas e [place] coronary artery w/angina pectoris chronic CHF (congestive heart failure) chronic Essential hypertension chron ic History of coronary artery stent placement August 13, 2017 chronic Hyperlipidemia chronic Dizziness acute DEAN (dyspnea on exertion) ac [place] Palpitations acute CAD (coronary artery disease) chronic CHF (congestive heart failure) chronic Essential hypertension chron ic Hyperlipidemia [facility] Work Phone: Evaluation note* Diagnosis Onset Date Resolution Status Dizziness acute Atherosclerotic heart diseas e [place] coronary artery w/angina pectoris chronic CHF (congestive heart failure) chronic Essential hypertension chron ic History of coronary artery stent placement August 13, 2017 chronic Hyperlipidemia chronic Dizziness acute DEAN (dyspnea on exertion) ac [place] Palpitations acute CAD (coronary artery disease) chronic CHF (congestive heart failure) chronic Essential hypertension chron ic Hyperlipidemia chronic DEAN (dyspnea on exertion) ac [place] CAD (coronary artery disease) chronic CHF (congestive heart failure) chronic Essential hypertension chron ic Hyperlipidemia [facility] Work Phone: Evaluation note* Diagnosis Onset Date Resolution Status Dizziness acute DEAN (dyspnea on exertion) ac [place] Palpitations acute CAD (coronary artery disease) chronic CHF (congestive heart failure) chronic Essential hypertension chron ic Hyperlipidemia chronic DEAN (dyspnea on exertion) ac [place] CAD (coronary artery disease) chronic CHF (congestive heart failure) chronic Essential hypertension chron ic Hyperlipidemia [facility] Work Phone: Evaluation note* Diagnosis Onset Date Resolution Status Abnormal PFT acute 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.9) 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 Obstructive sleep apnea 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 COVID-19 acute DEAN (dyspnea on exertion) ac [place] Atherosclerotic heart diseas e [place] coronary artery w/angina pectoris chronic CHF (congestive heart failure) chronic Essential hypertension chron ic History of coronary artery stent placement August 13, 2017 chronic Hyperlipidemia chronic Abnormal PFT acute COVID-19 acute 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.9) 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 Obstructive sleep apnea 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 [facility] Work Phone: Evaluation note* Diagnosis Onset Date Resolution Status COVID-19 acute DEAN (dyspnea on exertion) ac [place] Atherosclerotic heart diseas e [place] coronary artery w/angina pectoris chronic CHF (congestive heart failure) chronic Essential hypertension chron ic History of coronary artery stent placement August 13, 2017 chronic Hyperlipidemia chronic Abnormal PFT acute COVID-19 acute 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.9) 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 Obstructive sleep apnea 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 [facility] Work Phone: Evaluation note* Diagnosis Onset Date Resolution Status Angina pectoris chronic Chronic kidney disease chron ic Coronary artery disease 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 Diabetes mellitus chronic Dyslipidemia chronic Essential hypertension chron ic Obesity chronic [facility] Work Phone: Evaluation note* Diagnosis Onset Date Resolution Status Angina pectoris chronic Chronic kidney disease chron ic Coronary artery disease 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 Diabetes mellitus chronic Dyslipidemia chronic Essential hypertension chron ic Obesity chronic Left-sided weakness acute Chest pain resolved Fatigue acute Syncope acute 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 artery disease 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 Dyslipidemia chronic Essential hypertension chron ic [facility] Work Phone: Evaluation note* Diagnosis Onset Date Resolution Status Left-sided weakness acute Chest pain resolved Fatigue acute Syncope acute 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 artery disease 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 Dyslipidemia chronic Essential hypertension chron ic Angina pectoris chronic Bilateral lower extremity edema chronic Chronic kidney disease, stage 3 chronic 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 artery disease 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 Marycarmen Rodriguez, DO Status:ADM EDMUND Location: [place] [address] HPI - General General Date of Service: 12/07/24 HPI Narrative GERRY RICO, is a 79 M who presents [...] currently on room air and breathing comfortably. [facility] Medical History Anxiety Depression Diabetes Kidney disease [...] attack) Obstructive sleep apnea Atherosclerotic heart disease [place] coronary artery w/angina pectoris Type 2 diabetes [...] History household members: spouse and none housing: long term Smoking Status: Former smoker quit date: 05/03/98 [...] 79.0 H, Lymph % (Auto) 7.9 L, [place] % (Auto) 11.5 H, Eos % (Auto) [...] IMPRESSION: No acute cardiopulmonary process Reading Location: [id number] Assessment & Plan Assessment/Plan (1) Shortness of [...] at bedside. Charges/Coding Visit Charges Inpatient E&M: 01795 Init Hosp L3 12/07/24 1648 <Electronically signed by Shaan Santos DO> Cosigner Signature (if applicable): CC: Dr. Shaan Santos DO; Dr. Marycarmen Rodriguez DO~ Signed [facility] Work Phone: Hospital course Narrative No data available for this section [facility] Hospital Discharge instructionsAmbulatory Orders* Phase II, Outpatient Cardiac Rehab Location: None Selected [facility] Work Phone: Hospital Discharge instructionsAdditional Instructions The traffic manager wanted to make sure you are taking isosorbide, spironolactone, Lasix and Jardiance. Follow-up with the cardiology office.[facility] Work Phone: Progress note Author Dr. Hay [facility] September 01, 2022 9:53am Note Date/Time September 01, 2022 9:51am [facility] Medical Records Department [address] [place] [address] Progress Note 09/01/22 0950 MR#: [id number] Acct: [id number] Name: GERRY RICO Rep #:[id number] : 1945 77 From: Jose Hay MD PCP: Dr. Marycarmen Rodriguez, DO Status:ADM EDMUND Location: [place] [address] Progress Note Reports complete resolution of angina. Denies any complaints today. Right groin stable. No hematoma or bruit. Right radial pulse 2+. Mildly decreased platelet count noted. Repeat CBC in 2 days. Also repeat complete metabolic panel in 2 days. Discharge home. Follow-up as outpatient. 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 Advance Directives and Living Will [...] Documents on File Type Date Recorded 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 Advance Directives and Livin g Will 10/04/2020 12:00 AM Documents on File Type Date Recorded 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 Advance Directives and Living Will [...] Documents on File Type Date Recorded 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 Advance Directives and Livin g Will 10/15/2020 12:46 PM Documents on File Type Date Recorded 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 Advance Directives and Livin g Will 10/15/2020 12:46 PM Documents on File Type Date Recorded 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 Advance Directives and Livin g [...] Will Yes June 10 4:44pm Power of Grocery Stocker Yes June 10, 2021 4:44pm Advance Directive Response Recorded Date/ Time Name of Medical Power of Grocery Stocker Jennie- November 16, 2021 1:06pm Advance Directives No August 13, 2 018 7:02am Living Will Yes November 16, 2021 1:06pm Power of Grocery Stocker Yes November 16 1:06pm Advance Directive Response Recorded Date/ Time Advance Directives No August 13 018 6:02am Living Will Yes November 16, 2021 12:06pm Power of Grocery Stocker Yes November 16 12:06pm Advance Directive Response Recorded Date/ Time Advance Directives No August 13 018 7:02am Living Will Yes November 16, 2021 1:06pm Power of Grocery Stocker Yes November 16 1:06pm Advance Directive Response Recorded Date/ Time Advance Directives on File Yes August 312022 7:47am Name of Medical Power of Grocery Stocker Ashok escalera August 31, 2022 7:47am Advance Directives Yes August 31, 2022 7:47am Living Will Yes August 31, 2022 7: 47am Power of Grocery Stocker Yes August 31, 2022 7:47am Advance Directive Response Recorded Date/ Time Advance Directives on File Yes August 312022 7:47am Name of Medical Power of Grocery Stocker Ashok escalera August 31, 2022 7:47am Advance Directives Yes August 31, 2022 7:47am Living Will No September 18, 2022 1 2:11am Power of Grocery Stocker No September 18, 2022 12:11am Advance Directive Response Recorded Date/ Time Advance Directives on File Yes August 312022 7:47am Name of Medical Power of Grocery Stocker Ashok escalera August 31, 2022 7:47am Advance Directives on File No Augus t 2022 7:51am Name of Medical Power of Grocery Stocker ASHOK RICO December 21, 2022 7:51am Advance Directives Yes December 21, 2022 7:51am Living Will Yes December 21 7:51am Power of Grocery Stocker Yes December 21 2 023 7:51am Advance Directive Response Recorded Date/ Time Advance Directives on File No Augus t 2022 7:51am Name of Medical Power of Grocery Stocker ASHOK RICO December 21, 2022 7:51am Advance Directives Yes December 21, 2022 7:51am Living Will Yes December 21 7:51am Power of Grocery Stocker Yes December 21 2 023 7:51am Advance Directive Response Recorded Date/ Time Advance Directives Yes December 21, 2022 6:51am Living Will Yes December 21 6:51am Power of Grocery Stocker Yes December 21 6:51am Advance Directive Response Recorded Date/ Time Living Will No October 12, 2023 6:54pm Power of Grocery Stocker No October 11 6:54pm Advance Directives Yes December 21, 2022 7:51am Advance Directive Response Recorded Date/ Time Advance Directives Yes December 21, 2022 7:51am Advance Directive Response Recorded Date/ Time Do you have a Healthcare Power of Grocery Stocker? Yes November 26, 2024 5:44pm Advance Directives Yes December 21, 2022 7:51am Advance Directive Response Recorded Date/ Time Advance Directives on File Yes November 27, 2024 8:44am Living Will Yes November 27, 2024 8:44am Do you have a Healthcare Pow er of Grocery Stocker? Yes November 27, 2024 8:44am Name of Medical Power of Grocery Stocker Jennie Popeag er- spouse November 27, 2024 8:44am Advance Directives Yes November 27 8:44am Do you have a Healthcare Pow er of Grocery Stocker? Yes November 26, 2024 5:44pm Advance Directive Response Recorded Date/ Time Advance Directives on File Yes November 27, 2024 8:44am Living Will Yes November 27, 2024 8:44am Do you have a Healthcare Pow er of Grocery Stocker? Yes November 27, 2024 8:44am Name of Medical Power of Grocery Stocker Jennie Popeag er- spouse November 27, 2024 8:44am Advance Directives Yes November 27 8:44am Do you have a Healthcare Pow er of Grocery Stocker? Yes November 26, 2024 5:44pm Do you have a Healthcare Pow er of Grocery Stocker? Yes November 30, 2024 5:22pm Advance Directive Response Recorded Date/ Time Advance Directives on File Yes November 27, 2024 8:44am Living Will Yes November 27, 2024 8:44am Do you have a Healthcare Pow er of Grocery Stocker? Yes November 27, 2024 8:44am Name of Medical Power of Grocery Stocker Jennie Popeag er- spouse November 27, 2024 8:44am Advance Directives Yes November 27 8:44am Do you have a Healthcare Pow er of Grocery Stocker? Yes November 26, 2024 5:44pm Do you have a Healthcare Pow er of Grocery Stocker? Yes November 30, 2024 5:22pm Do you have a Healthcare Pow er of Grocery Stocker? Yes December 02, 2024 8:23pm Advance Directive Response Recorded Date/ Time Advance Directives on File Yes November 27, 2024 8:44am Living Will Yes November 27, 2024 8:44am Do you have a Healthcare Pow er of Grocery Stocker? Yes November 27, 2024 8:44am Name of Medical Power of Grocery Stocker Jennie Popeag er- spouse November 27, 2024 8:44am Advance Directives Yes November 27 8:44am Do you have a Healthcare Pow er of Grocery Stocker? Yes November 26, 2024 5:44pm Do you have a Healthcare Pow er of Grocery Stocker? Yes November 30, 2024 5:22pm Do you have a Healthcare Pow er of Grocery Stocker? Yes December 02, 2024 9:54pm Advance Directive Response Recorded Date/ Time Advance Directives on File Yes November 27, 2024 8:44am Living Will Yes November 27, 2024 8:44am Do you have a Healthcare Pow er of Grocery Stocker? Yes November 27, 2024 8:44am Name of Medical Power of Grocery Stocker Jennie Agarwal er- spouse November 27, 2024 8:44am Advance Directives Yes November 27 8:44am Do you have a Healthcare Pow er of Grocery Stocker? Yes November 26, 2024 5:44pm Do you have a Healthcare Pow er of Grocery Stocker? Yes November 30, 2024 5:22pm Do you have a Healthcare Pow er of Grocery Stocker? Yes December 02, 2024 9:54pm Do you have a Healthcare Pow er of Grocery Stocker? Yes December 07, 2024 11:09am Advance Directive Response Recorded Date/ Time Advance Directives on File Yes November 27, 2024 8:44am Living Will Yes November 27, 2024 8:44am Do you have a Healthcare Pow er of Grocery Stocker? Yes November 27, 2024 8:44am Name of Medical Power of Grocery Stocker Jennie Popeag er- spouse November 27, 2024 8:44am Advance Directives Yes November 27 8:44am Do you have a Healthcare Pow er of Grocery Stocker? Yes November 26, 2024 5:44pm Do you have a Healthcare Pow er of Grocery Stocker? Yes November 30, 2024 5:22pm Do you have a Healthcare Pow er of Grocery Stocker? Yes December 02, 2024 9:54pm Do you have a Healthcare Pow er of Grocery Stocker? Yes December 07, 2024 5:33pm Advance Directive Response Recorded Date/ Time Advance Directives on File Yes November 27, 2024 8:44am Living Will Yes November 27, 2024 8:44am Do you have a Healthcare Pow er of Grocery Stocker? Yes November 27, 2024 8:44am Name of Medical Power of Grocery Stocker Jennie Popeag er- spouse November 27, 2024 8:44am Advance Directives Yes November 27 8:44am Do you have a Healthcare Pow er of Grocery Stocker? Yes December 15, 2024 3:01pm Do you have a Healthcare Pow er of Grocery Stocker? Yes November 26, 2024 5:44pm Do you have a Healthcare Pow er of Grocery Stocker? Yes November 30, 2024 5:22pm Do you have a Healthcare Pow er of Grocery Stocker? Yes December 02, 2024 9:54pm Do you have a Healthcare Pow er of Grocery Stocker? Yes December 07, 2024 5:33pm Advance Directive Response Recorded Date/ Time Advance Directives on File Yes November 27, 2024 8:44am Living Will Yes November 27, 2024 8:44am Do you have a Healthcare Pow er of Grocery Stocker? Yes November 27, 2024 8:44am Name of Medical Power of Grocery Stocker Jennie Agarwal er- spouse November 27, 2024 8:44am Advance Directives Yes November 27 8:44am Do you have a Healthcare Pow er of Grocery Stocker? Yes December 15, 2024 3:01pm Do you have a Healthcare Pow er of Grocery Stocker? Yes December 20, 2024 11:46am Do you have a Healthcare Pow er of Grocery Stocker? Yes November 26, 2024 5:44pm Do you have a Healthcare Pow er of Grocery Stocker? Yes November 30, 2024 5:22pm Do you have a Healthcare Pow er of Grocery Stocker? Yes December 02, 2024 9:54pm Do you have a Healthcare Pow er of Grocery Stocker? Yes December 07, 2024 5:33pm Do you have a Healthcare Pow er of Grocery Stocker? Yes December 24, 2024 2:54am Advance Directive Response Recorded Date/ Time Advance Directives on File Yes November 27, 2024 8:44am Living Will Yes November 27, 2024 8:44am Do you have a Healthcare Pow er of Grocery Stocker? Yes November 27, 2024 8:44am Name of Medical Power of Grocery Stocker Jennie Agarwal er- spouse November 27, 2024 8:44am Advance Directives Yes November 27 8:44am Do you have a Healthcare Pow er of Grocery Stocker? Yes December 15, 2024 3:01pm Do you have a Healthcare Pow er of Grocery Stocker? Yes December 20, 2024 11:46am Do you have a Healthcare Pow er of Grocery Stocker? Yes November 26, 2024 5:44pm Do you have a Healthcare Pow er of Grocery Stocker? Yes November 30, 2024 5:22pm Do you have a Healthcare Pow er of Grocery Stocker? Yes December 02, 2024 9:54pm Do you have a Healthcare Pow er of Grocery Stocker? Yes December 07, 2024 5:33pm Do you have a Healthcare Pow er of Grocery Stocker? Yes December 24, 2024 2:54am Do you have a Healthcare Pow er of Grocery Stocker? No January 01, 2025 8:56am Reason for Referral Status Reason Specialty Diagnoses / Procedures Referred By Contact Referred To Contact New Request Cardiology Diagnoses Shortness of breath Procedures Echocardiogram complete Eladio Ingram MD [address] [place] [address] Status Reason Specialty Diagnoses / Procedures Referred By Contact Referred To Contact Closed Cardiology Diagnoses DEAN (dyspnea on exertion) Procedures ECG 12 lead Sagar Acuña, CERAMICS ARTIST [address] [place] [address] Specialty Diagnoses / Procedures Referred By Contac t Referred To Contact Radiology Diagnoses Coronary artery disease involving [place] coronary artery of [place] heart with angina pectoris (HCC) Procedures CT Angiogram Aorta Chest Abdomen Pelvis Eladio Ingram MD [address] [place] [address] Referral ID Status Reason Start Date Expiration Date V isits Requested Visits Authorized [id number] New Request 01/10/2021 01/10/2022 1 1 Chief Complaint and Reason for Visit Chief Complaint R. LOWER LID LESION RLQ ABD PAIN bleeding from ear, chest pain OVERDUE FOR OV CHEST PAIN CHEST PAIN Reason for Visit Dizziness Atherosclerotic heart disease [place] coronary artery w/angina pectoris CHF (congestive heart failure) Essential hypertension History of coronary artery stent placement Hyperlipidemia Chief Complaint bleeding from ear, c hest pain OVERDUE FOR OV CHEST PAIN CHEST PAIN 6-8 WK F/U DYSPNEA Reason for Visit Dizziness Atherosclerotic heart disease [place] coronary artery w/angina pectoris CHF (congestive heart failure) Essential hypertension History of coronary artery stent placement Hyperlipidemia Dizziness DEAN (dyspnea on exertion) Palpitations CAD (coronary artery disease) CHF (congestive heart failure) Essential hypertension Hyperlipidemia Chief Complaint OVERDUE FOR OV CHEST PAIN CHEST PAIN 6-8 WK F/U DYSPNEA Reason for Visit Dizziness Atherosclerotic heart disease [place] coronary artery w/angina pectoris CHF (congestive heart failure) Essential hypertension History of coronary artery stent placement Hyperlipidemia Dizziness DEAN (dyspnea on exertion) Palpitations CAD (coronary artery disease) CHF (congestive heart failure) Essential hypertension Hyperlipidemia Chief Complaint OVERDUE FOR OV CHEST PAIN CHEST PAIN 6-8 WK F/U DYSPNEA CHEST PAIN 2 M FU E ORDERS Reason for Visit Dizziness Atherosclerotic heart disease [place] coronary artery w/angina pectoris CHF (congestive heart [...] DEAN (dyspnea on exertion) Atherosclerotic heart disease [place] coronary artery w/angina pectoris CHF (congestive heart failure) Essential hypertension History of coronary artery stent placement Hyperlipidemia Abnormal PFT COVID-19 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.9) Obstructive sleep apnea Chief Complaint SORE THROAT, COUGH, FEVER, BODY ACHE 5 MO F/U 3 M FU DYSPNEA/SOB Reason for Visit COVID-19 DEAN (dyspnea on exertion) Atherosclerotic heart disease [place] coronary artery w/angina pectoris CHF (congestive heart [...] CP CVA, CP CVA, CP request by GROUP CONTROLLER at [facility] for angina L.L. E-ORDER SYNCOPE Reason for Visit Angina pectoris Chronic kidney disease Coronary artery disease Diabetes mellitus Dyslipidemia Essential hypertension Obesity Left-sided weakness Chest pain Fatigue Syncope Coronary artery disease Dyslipidemia Essential hypertension Chief Complaint CAD Amb Documentation EKG Coronary artery disease Amb Documentation CVA, CP CVA, CP CP ADMIT CVA, CP CVA, CP CVA, CP CVA, CP request by GROUP CONTROLLER at [facility] for angina L.L. E-ORDER SYNCOPE 2 M [...] CP CVA, CP CVA, CP request by GROUP CONTROLLER at [facility] for angina L.L. E-ORDER SYNCOPE 2 M [...] FU April 17, 2024 3:51pm F/U per [facility] July 03, 2024 1:10 pm MATTHEW, 42 [...] FU April 17, 2024 3:51pm F/U per [facility] July 03, 2024 1:10 pm MATTHEW, 42 [...] Date COPD (chronic obstructive pulmonary dise ase) March [...] September 20, 2024 10:13am Diastolic heart failure May 21st, 2025 1 0:13am Obesity September 20, 2024 10:13 [...] Presence of stent in coronary artery Oct 2025 10:53am Shortness of breath November 22, 2024 [...] inferior wall [place] December 03, 2024 2:01am Shortness of breath December 07, 2024 4:2 4pm DEAN (dyspnea on exertion) December 07 4:24pm Chest pain Merkel 7th, 2025 4:[address] elevation myocardial infarctio [...] stage 3 October 4:58pm Coronary artery vasospasm Merkel 3rd, 20 25 2:01am Hyponatremia December 03, 2024 2:0 1am [...] inferior wall [place] December 03, 2024 2:01am Hyperlipidemia December 03, [...] 2:35pm BRBPR (bright red blood per rectum) Augu st 2024 1:59am Coronary artery disease December 24 1:59am Diverticulosis December 24, 2024 1: 59am GI (gastrointestinal bleed) December 24, 2024 1:59am CHF (congestive heart failure) December 242024 1:59am COPD (chronic obstructive pulmonary dise ase) December 24, 2024 1:59am Hyperlipidemia December 24, 2024 1: 59am Obesity December 24, 2024 1: 59am Chief Complaint Admit Date 3 M FU [...] GI BLEED December 26, 2024 1: 10pm chest pain January 01, 2025 8:52am Reason for Visit Admit Date COPD (chronic [...] inferior wall [place] December 03, 2024 2:01am Hyperlipidemia December 03, [...] without complic ations December 15, 2024 2:35pm Coronary artery disease December 24 1:59am Diverticulosis December 24, 2024 1: 59am GI (gastrointestinal bleed) December 24, 2024 1:59am BRBPR (bright red blood per rectum) Augu st 2024 1:59am CHF (congestive heart failure) December [...] section and content) DATE CREATED AUTHOR 09/24/2018 [facility] DATE CREATED AUTHOR AUTHOR'S ORGANIZ ATION 12/20/[address] [facility] DATE CREATED AUTHOR AUTHOR'S ORGANIZ ATION 01/11/2021 [facility] DATE CREATED AUTHOR AUTHOR'S ORGANIZ ATION 02/28/2021 [facility] DATE CREATED AUTHOR AUTHOR'S ORGANIZ ATION 04/20/2021 [facility] DATE CREATED AUTHOR AUTHOR'S ORGANIZ ATION 06/22/2021 [facility] DATE CREATED AUTHOR AUTHOR'S ORGANIZ ATION 01/15/2025 [facility] DATE CREATED AUTHOR AUTHOR'S ORGANIZ ATION 01/17/2025 [facility] Reason for Visit (unrecogniz ed section and content) Reason Comments Chest Pain SOB Status Reason Specialty Diagnoses / Procedures Referred By Contact Referred To Contact Closed Cardiology Diagnoses DEAN (dyspnea on exertion) Procedures ECG 12 lead Sagar Acuña, CERAMICS ARTIST [address] [place] [address] Status Reason Specialty Diagnoses / Procedures Referre d By Contact Referred To Contact Closed Cardiology Diagnoses Shortness of breath Procedures Echocardiogram complete w contrast Echocardiogram complete Eladio Ingram MD [address] [facility] [address] [place] [address] Reason Comments Initial Visit (Intake) Specialty Diagnoses / Procedures Referred By Rosa lozano Referred To Contact Cardiology Diagnoses Atherosclerosis of [place] coronary artery with angina pectoris, 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) Marycarmen Rodriguez DO [address] [place] [address] Referral ID Status Reason Start Date Expiration Date V isits Requested Visits Authorized [id number] Closed Specialty Services Required/Krupa ent's Best Interest 10/04/2020 10/04/2021 1 1 Care Teams (unrecognized sec tion and content) Cast [employer] Drain Pipe Layer Relationship Specialty Start Date End Date Marycarmen Rodriguez DO [address] [place], [place] [id number] PCP - General Family Medicine 12/17/16 [employer] Drain Pipe Layer Relationship Specialty Start Date End Date Marycarmen Rodriguez DO [address] [place], [place] [id number] PCP - General Family Medicine 12/17/16 Cast [employer] Drain Pipe Layer Relationship Specialty Start Date End Date Marycarmen Rodriguez DO [address] [facility], [place] [id number] PCP - General Family Medicine 12/17/16 Cast Iron Drain Pipe Layer Relationship Specialty Start Date End Date Marycarmen Rodriguez DO [address] [place], [place] [id number] PCP - General Family Medicine 12/17/16 Team Status: Active Member Role Status Dates Dr. Marycarmen Rodriguez DO Family Provider Active Marycarmen Rodriguez Primary Care Provider Active Team Status: Inactive Member Role Status Dates Dr. Marycarmen Rodriguez DO Primary Care Provider, Stefany g Provider Active Luz Elena Mckeon GROUP CONTROLLER, GROUP CONTROLLER-C Attending Provider Active Team Status: Inactive Member Role Status Dates Dr. Marycarmen Rodriguez DO Primary Care Provider Active Dr. Merritt Persaud MD Attending Provider, Referring Pr lynne Active Team Status: Inactive Member Role Status Dates Dr. Marycarmen Jennifer , DO Primary Care Provider, Referrin g Provider Active Can Avalos PA, PA Attending Provider Active Team Status: Active Member Role Status Dates Dr. Marycarmen Rodriguez DO Primary Care Provider Active Dr. John Palacios MD Attending Provider Active Team Status: Inactive Member Role Status Dates Dr. Marycarmen Rodriguez DO Primary Care Provider Active Luz Elena Mckeon GROUP CONTROLLER, GROUP CONTROLLER-C Attending Provider Active Team Status: Inactive Member Role Status Dates Dr. Marycarmen Rodriguez DO Primary Care Provider Active Luz Elena Mckeon GROUP CONTROLLER, GROUP CONTROLLER-C Attending Provider, Referring P sharon Active Team [...] Primary Care Provider Active Luz Elena Mckeon GROUP CONTROLLER, GROUP CONTROLLER-C Attending Provider, Referring P rovider Active Team [...] Primary Care Provider Active Luz Elena Mckeon GROUP CONTROLLER, GROUP CONTROLLER-C Attending Provider Active Team Status: Inactive Member [...] 2024 End: April 17, 2024 Gustabo Pérez GROUP CONTROLLER, GROUP CONTROLLER-C Attending Provider Active S tart: April 17, 2024 End: April 17, 2024 Team Status: Inactive Member Role Status Dates Dr. Marycarmen Rodriguez DO Primary Care Provider Active Start: April 17, 2024 End: April 17, 2024 Gustabo Pérez GROUP CONTROLLER, GROUP CONTROLLER-C Attending Provider Active S tart: April 17, 2024 End: April 17, 2024 Gustabo Pérez GROUP CONTROLLER, GROUP CONTROLLER-C Referring Provider Active S tart: April 17, [...] 2024 End: July 03, 2024 Marni Horn GROUP CONTROLLER, GROUP CONTROLLER-C Attending Provider Active Start: July 03, 2024 End: July 03, 2024 Team Status: Active Member Role Status Dates Dr. Marycarmen Rodriguez DO Primary Care Provider Active Start: July 07, 2024 Marni Horn GROUP CONTROLLER, GROUP CONTROLLER-C Attending Provider Active Start: July 07, 2024 Marni Horn GROUP CONTROLLER, GROUP CONTROLLER-C Referring Provider Active Start: July 07, 2024 Team Status: Inactive Member Role Status Dates Dr. Marycarmen Rodriguez DO Primary Care Provider Active Start: July 07, 2024 End: July 07, 2024 Marni Horn GROUP CONTROLLER, GROUP CONTROLLER-C Attending Provider Active Start: July 07, 2024 End: July 07, 2024 Marni Horn GROUP CONTROLLER, GROUP CONTROLLER-C Referring Provider Active Start: July 07, 2024 End: July 07, 2024 Team Status: Active Member Role Status Dates Dr. Marycarmen Rodriguez DO Primary Care Provider Active Start: July 17, 2024 Marni Horn GROUP CONTROLLER, GROUP CONTROLLER-C Attending Provider Active Start: July 17, 2024 Marni Horn GROUP CONTROLLER, GROUP CONTROLLER-C Referring Provider Active Start: July 17, 2024 Team Status: Active Member Role Status Dates Dr. Marycarmen Rodriguez DO Primary Care Provider Active Start: July 18, 2024 Marni Horn GROUP CONTROLLER, GROUP CONTROLLER-C Attending Provider Active Start: July 18, 2024 Marni Horn GROUP CONTROLLER, GROUP CONTROLLER-C Referring Provider Active Start: July 18, 2024 Team Status: Active Member Role Status Dates Dr. Marycarmen Rodriguez DO Primary Care Provider Active Start: July 18, 2024 Marni Horn GROUP CONTROLLER, GROUP CONTROLLER-C Referring Provider Active Start: July 18, 2024 Marni Horn GROUP CONTROLLER, GROUP CONTROLLER-C Other Provider Active Start: July 18, 2024 Dr. Zen East DO Attending Provider Active S tart: July 18, 2024 Team Status: Inactive Member Role Status Dates Dr. Marycarmen Rodriguez DO Primary Care Provider Active Start: July 17, 2024 End: July 17, 2024 Marni Horn GROUP CONTROLLER, GROUP CONTROLLER-C Attending Provider Active Start: July 17, 2024 End: July 17, 2024 Marni Horn GROUP CONTROLLER, GROUP CONTROLLER-C Referring Provider Active Start: July 17, 2024 End: July 17, 2024 Team Status: Inactive Member Role Status Dates Dr. Marycarmen Rodriguez DO Primary Care Provider Active Start: July 18, 2024 End: July 18, 2024 Marni Horn GROUP CONTROLLER, GROUP CONTROLLER-C Attending Provider Active Start: July 18, 2024 End: July 18, 2024 Marni Horn GROUP CONTROLLER, GROUP CONTROLLER-C Referring Provider Active Start: July 18, 2024 End: July 18, 2024 Team Status: Inactive Member Role Status Dates Dr. Marycarmen Rodriguez DO Primary Care Provider Active Start: August 03, 2024 End: August 03, 2024 Marni Horn GROUP CONTROLLER, GROUP CONTROLLER-C Attending Provider Active Start: August 03, 2024 End: August 03, 2024 Marni Horn GROUP CONTROLLER, GROUP CONTROLLER-C Referring Provider Active Start: August 03, 2024 [...] 2024 End: September 20, 2024 Maren Olivas GROUP CONTROLLER-C Attending Provider Active Start: September 20, 2024 End: September 20, 2024 Maren Olivas NP-C Referring Provider Active Start: September 20, 2024 End: September 20, 2024 Team Status: Active Member Role Status Dates Dr. Marycarmen Rodriguez DO Primary Care Provider Active Start: September 22, 2024 Marni Horn GROUP CONTROLLER, GROUP CONTROLLER-C Attending Provider Active Start: September 22, 2024 Team Status: Inactive Member Role Status Dates Dr. Marycarmen Rodriguez DO Primary Care Provider Active Start: September 22, 2024 End: September 22, 2024 Marni Horn GROUP CONTROLLER, GROUP CONTROLLER-C Attending Provider Active Start: September 22, 2024 [...] S tart: July 17, 2024 Marni Horn GROUP CONTROLLER, GROUP CONTROLLER-C Referring Provider Active Start: July 17, 2024 Team Status: Inactive Member Role Status Dates Dr. Marycarmen Rodriguez DO Primary Care Provider Active Start: October 18, 2024 End: October 18, 2024 Dr. Brooks Carpenter MD Attending Provider Active Start: October 18, 2024 End: October 18, 2024 Dr. Brooks Carpenter MD Referring Provider Active Start: October 18, 2024 End: October 18, 2024 Gustabo Pérez GROUP CONTROLLER, GROUP CONTROLLER-C Other Provider Active Start : October 18, 2024 End: October 18, 2024 Team Status: Active Member Role Status Dates Dr. Marycarmen Rodriguez DO Primary Care Provider Active Start: October 18, 2024 Marni Horn GROUP CONTROLLER, GROUP CONTROLLER-C Attending Provider Active Start: October 18, 2024 Team Status: Inactive Member Role Status Dates Dr. Marycarmen Rodriguez DO Primary Care Provider Active Start: October 25, 2024 End: October 25, 2024 Dr. Marycarmen Rodriguez DO Referring Provider Active Start: October 25, 2024 End: October 25, 2024 Gustabo Pérez GROUP CONTROLLER, GROUP CONTROLLER-C Attending Provider Active S tart: October 25, 2024 End: October 25, 2024 Team Status: Inactive Member Role Status Dates Dr. Marycarmen Rodriguez DO Primary Care Provider Active Start: October 18, 2024 End: October 18, 2024 Marni Horn GROUP CONTROLLER, GROUP CONTROLLER-C Attending Provider Active Start: October 18, 2024 [...] 2024 End: July 03, 2024 Marni Horn GROUP CONTROLLER, GROUP CONTROLLER-C Attending Provider Active Start: July 03, 2024 End: July 03, 2024 Team Status: Inactive Member Role/Relationship Status Dates Dr. Marycarmen Rodriguez DO Primary Care Provider Active Start: July 07, 2024 End: July 07, 2024 Marni Horn GROUP CONTROLLER, GROUP CONTROLLER-C Attending Provider Active Start: July 07, 2024 End: July 07, 2024 Marni Horn GROUP CONTROLLER, GROUP CONTROLLER-C Referring Provider Active Start: July 07, 2024 End: July 07, 2024 Team Status: Inactive Member Role/Relationship Status Dates Dr. Marycarmen Rodriguez DO Primary Care Provider Active Start: July 17, 2024 End: July 17, 2024 Marni Horn GROUP CONTROLLER, GROUP CONTROLLER-C Attending Provider Active Start: July 17, 2024 End: July 17, 2024 Marni Horn GROUP CONTROLLER, GROUP CONTROLLER-C Referring Provider Active Start: July 17, 2024 End: July 17, 2024 Team Status: Active Member Role/Relationship Status Dates Dr. Marycarmen Rodriguez DO Primary Care Provider Active Start: July 17, 2024 Dr. Zen East DO Attending Provider Active S tart: July 17, 2024 Marni Horn GROUP CONTROLLER, GROUP CONTROLLER-C Referring Provider Active Start: July 17, 2024 Team Status: Inactive Member Role/Relationship Status Dates Dr. Marycarmen Rodriguez DO Primary Care Provider Active Start: July 18, 2024 End: July 18, 2024 Marni Horn GROUP CONTROLLER, GROUP CONTROLLER-C Attending Provider Active Start: July 18, 2024 End: July 18, 2024 Marni Horn GROUP CONTROLLER, GROUP CONTROLLER-C Referring Provider Active Start: July 18, 2024 End: July 18, 2024 Team Status: Active Member Role/Relationship Status Dates Dr. Marycarmen Rodriguez DO Primary Care Provider Active Start: July 18, 2024 Marni Horn GROUP CONTROLLER, GROUP CONTROLLER-C Referring Provider Active Start: July 18, 2024 Marni Horn GROUP CONTROLLER, GROUP CONTROLLER-C Other Provider Active Start: July 18, 2024 Dr. Zen East DO Attending Provider Active S tart: July 18, 2024 Team Status: Inactive Member Role/Relationship Status Dates Dr. Marycarmen Rodriguez DO Primary Care Provider Active Start: August 03, 2024 End: August 03, 2024 Marni Horn GROUP CONTROLLER, GROUP CONTROLLER-C Attending Provider Active Start: August 03, 2024 End: August 03, 2024 Marni Horn GROUP CONTROLLER, GROUP CONTROLLER-C Referring Provider Active Start: August 03, 2024 [...] End: September 22, 2024 Marni Horn NP, GROUP CONTROLLER-C Attending Provider Active Start: September 22, 2024 [...] End: October 18, 2024 Gustabo Pérez NP, GROUP CONTROLLER-C Other Provider Active Start : October 18, 2024 End: October 18, 2024 Team Status: Inactive Member Role/Relationship Status Dates Dr. Marycarmen Rodriguez DO Primary Care Provider Active Start: October 18, 2024 End: October 18, 2024 Marni Horn NP, GROUP CONTROLLER-C Attending Provider Active Start: October 18, 2024 End: October 18, 2024 Team Status: Inactive Member Role/Relationship Status Dates Dr. Marycarmen Rodriguez DO Primary Care Provider Active Start: October 25, 2024 End: October 25, 2024 Dr. Marycarmen Rodriguez DO Referring Provider Active Start: October 25, 2024 End: October 25, 2024 Gustabo Pérez NP, GROUP CONTROLLER-C Attending Provider Active S tart: October 25, 2024 End: October 25, 2024 Team Status: Active Member Role/Relationship Status Dates Dr. Marycarmen Rodriguez DO Primary Care Provider Active Start: October 26, 2024 Marni Horn GROUP CONTROLLER, GROUP CONTROLLER-C Attending Provider Active Start: October 26, 2024 Marni Horn GROUP CONTROLLER, GROUP CONTROLLER-C Referring Provider Active Start: October 26, 2024 Team Status: Inactive Member Role/Relationship Status Dates Dr. Marycarmen Rodriguez DO Primary Care Provider Active Start: October 31, 2024 End: October 31, 2024 Dr. Marycarmen Rodriguez DO Referring Provider Active Start: October 31, 2024 End: October 31, 2024 Maren Olivas GROUP CONTROLLER-C Attending Provider Active Start: October 31, 2024 End: October 31, 2024 Team Status: Inactive Member Role/Relationship Status Dates Dr. Marycarmen Rodriguez DO Primary Care Provider Active Start: October 26, 2024 End: October 26, 2024 Marni Horn GROUP CONTROLLER, GROUP CONTROLLER-C Attending Provider Active Start: October 26, 2024 End: October 26, 2024 Marni Horn GROUP CONTROLLER, GROUP CONTROLLER-C Referring Provider Active Start: October 26, 2024 End: October 26, 2024 Team Status: Inactive Member Role/Relationship Status Dates Dr. Marycarmen Rodriguez DO Primary Care Provider Active Start: August 03, 2024 End: August 03, 2024 Marni Horn GROUP CONTROLLER, GROUP CONTROLLER-C Attending Provider Active Start: August 03, 2024 End: August 03, 2024 Marni Horn GROUP CONTROLLER, GROUP CONTROLLER-C Referring Provider Active Start: August 03, 2024 [...] 2024 End: September 20, 2024 Maren Olivas GROUP CONTROLLER-C Attending Provider Active Start: September 20, 2024 End: September 20, 2024 Maern Olivas NP-C Referring Provider Active Start: September 20, 2024 End: September 20, 2024 Team Status: Inactive Member Role/Relationship Status Dates Dr. Marycarmen Rodriguez DO Primary Care Provider Active Start: September 22, 2024 End: September 22, 2024 Marni Horn NP, GROUP CONTROLLER-C Attending Provider Active Start: September 22, 2024 [...] 2024 End: October 18, 2024 Gustabo Pérez GROUP CONTROLLER, GROUP CONTROLLER-C Other Provider Active Start : October 18, 2024 End: October 18, 2024 Team Status: Inactive Member Role/Relationship Status Dates Dr. Marycarmen Rodriguez DO Primary Care Provider Active Start: October 18, 2024 End: October 18, 2024 Marni Horn NP, GROUP CONTROLLER-C Attending Provider Active Start: October 18, 2024 End: October 18, 2024 Team Status: Inactive Member Role/Relationship Status Dates Dr. Marycarmen Rodriguez DO Primary Care Provider Active Start: October 25, 2024 End: October 25, 2024 Dr. Marycarmen Rodriguez DO Referring Provider Active Start: October 25, 2024 End: October 25, 2024 Gustabo Pérez GROUP CONTROLLER, GROUP CONTROLLER-C Attending Provider Active S tart: October 25, 2024 End: October 25, 2024 Team Status: Inactive Member Role/Relationship Status Dates Dr. Marycarmen Rodriguez DO Primary Care Provider Active Start: October 26, 2024 End: October 26, 2024 Marni Horn GROUP CONTROLLER, GROUP CONTROLLER-C Attending Provider Active Start: October 26, 2024 End: October 26, 2024 Marni Horn GROUP CONTROLLER, GROUP CONTROLLER-C Referring Provider Active Start: October 26, 2024 [...] Active Start: November 10, 2024 Gustabo Pérez GROUP CONTROLLER, GROUP CONTROLLER-C Attending Provider Active S tart: November 10, 2024 Gustabo Pérez GROUP CONTROLLER, GROUP CONTROLLER-C Referring Provider Active S tart: November 10, 2024 Team Status: Active Member Role/Relationship Status Dates Dr. Marycarmen Rodriguez DO Primary Care Provider Active Start: November 10, 2024 Dr. Lance Rodriguez MD Attending Provider Active S tart: November 10, 2024 Gustabo Pérez GROUP CONTROLLER, GROUP CONTROLLER-C Referring Provider Active S tart: November 10, [...] Start: November 13, 2024 Gustabo H Roof GROUP CONTROLLER, GROUP CONTROLLER-C Referring Provider Active S tart: November 13, 2024 Gustabo H Roof GROUP CONTROLLER, GROUP CONTROLLER-C Other Provider Active Start : November 13, 2024 Dr. Jose Hay MD Attending Provider Active Start: November 13, 2024 Team Status: Inactive Member Role/Relationship Status Dates Dr. Marycarmen Rodriguez DO Primary Care Provider Active Start: November 10, 2024 End: November 10, 2024 Gustabo H Roof GROUP CONTROLLER, GROUP CONTROLLER-C Attending Provider Active S tart: November 10, 2024 End: November 10, 2024 Gustabo H Roof GROUP CONTROLLER, GROUP CONTROLLER-C Referring Provider Active S tart: November 10, [...] 2024 End: November 22, 2024 Gustabo Pérez GROUP CONTROLLER, GROUP CONTROLLER-C Attending Provider Active S tart: November 22, [...] Active Start: November 22, 2024 Gustabo Pérez GROUP CONTROLLER, GROUP CONTROLLER-C Attending Provider Active S tart: November 22, 2024 Gustabo Pérez GROUP CONTROLLER, GROUP CONTROLLER-C Referring Provider Active S tart: November 22, [...] 2024 End: November 22, 2024 Gustabo Pérez GROUP CONTROLLER, GROUP CONTROLLER-C Attending Provider Active S tart: November 22, 2024 End: November 22, 2024 Gustabo Pérez GROUP CONTROLLER, GROUP CONTROLLER-C Referring Provider Active S tart: November 22, [...] End: September 22, 2024 Marni Horn NP, GROUP CONTROLLER-C Attending Provider Active Start: September 22, 2024 [...] 2024 End: October 18, 2024 Gustabo Pérez GROUP CONTROLLER, GROUP CONTROLLER-C Other Provider Active Start : October 18, 2024 End: October 18, 2024 Team Status: Inactive Member Role/Relationship Status Dates Dr. Marycarmen Rodriguez DO Primary Care Provider Active Start: October 18, 2024 End: October 18, 2024 Marni Horn GROUP CONTROLLER, GROUP CONTROLLER-C Attending Provider Active Start: October 18, 2024 End: October 18, 2024 Team Status: Inactive Member Role/Relationship Status Dates Dr. Marycarmen Rodriguez DO Primary Care Provider Active Start: October 25, 2024 End: October 25, 2024 Dr. Marycarmen Rodriguez DO Referring Provider Active Start: October 25, 2024 End: October 25, 2024 Gustabo Pérez GROUP CONTROLLER, GROUP CONTROLLER-C Attending Provider Active S tart: October 25, 2024 End: October 25, 2024 Team Status: Inactive Member Role/Relationship Status Dates Dr. Marycarmen Rodriguez DO Primary Care Provider Active Start: October 26, 2024 End: October 26, 2024 Marni Horn GROUP CONTROLLER, GROUP CONTROLLER-C Attending Provider Active Start: October 26, 2024 End: October 26, 2024 Marni Horn GROUP CONTROLLER, GROUP CONTROLLER-C Referring Provider Active Start: October 26, 2024 End: October 26, 2024 Team Status: Inactive Member Role/Relationship Status Dates Dr. Marycarmen Rodriguez DO Primary Care Provider Active Start: October 31, 2024 End: October 31, 2024 Dr. Marycarmen Rodriguez DO Referring Provider Active Start: October 31, 2024 End: October 31, 2024 Maern Olivas NP-C Attending Provider Active Start: October [...] 2024 End: November 10, 2024 Gustabo Pérez GROUP CONTROLLER, GROUP CONTROLLER-C Attending Provider Active S tart: November 10, 2024 End: November 10, 2024 Gustabo Pérez GROUP CONTROLLER, GROUP CONTROLLER-C Referring Provider Active S tart: November 10, 2024 End: November 10, 2024 Team Status: Active Member Role/Relationship Status Dates Dr. Marycarmen Rodriguez DO Primary Care Provider Active Start: November 10, 2024 Dr. Lance Rodriguez MD Attending Provider Active S tart: November 10, 2024 Gustabo Pérez GROUP CONTROLLER, GROUP CONTROLLER-C Referring Provider Active S tart: November 10, 2024 Team Status: Inactive Member Role/Relationship Status Dates Dr. Marycarmen Rodriguez DO Primary Care Provider Active Start: November 10, 2024 End: November 10, 2024 Maren Olivas GROUP CONTROLLER-C Attending Provider Active Start: November 10, 2024 End: November 10, 2024 Maren Olivas NP-C Referring Provider Active Start: November 10, 2024 End: November 10, 2024 Team Status: Active Member Role/Relationship Status Dates Dr. Marycarmen Rodriguez DO Primary Care Provider Active Start: November 13, 2024 Gustabo Pérez GROUP CONTROLLER, GROUP CONTROLLER-C Referring Provider Active S tart: November 13, 2024 Gustabo Pérez GROUP CONTROLLER, GROUP CONTROLLER-C Other Provider Active Start : November 13, [...] 2024 End: November 22, 2024 Gustabo Pérez GROUP CONTROLLER, GROUP CONTROLLER-C Attending Provider Active S tart: November 22, 2024 End: November 22, 2024 Team Status: Inactive Member Role/Relationship Status Dates Dr. Marycarmen Rodriguez DO Primary Care Provider Active Start: November 22, 2024 End: November 22, 2024 Gustabo Pérez GROUP CONTROLLER, GROUP CONTROLLER-C Attending Provider Active S tart: November 22, 2024 End: November 22, 2024 Gustabo Pérez GROUP CONTROLLER, GROUP CONTROLLER-C Referring Provider Active S tart: November 22, [...] 30, 2024 End: December 02, 2024 Dr. Michael Good MD Other Provider Active St art: [...] Care Provider Active Start: December 01, 2024 Iasel Bernabe MD Emergency Provider Active Star t: [...] Other Provider Active Start: December 02, 2024 Faey Kingsley MD Other Provider Active Start : [...] Active Start : December 02, 2024 Dr. Michael Good MD Other Provider Active St art: [...] 30, 2024 End: December 02, 2024 Dr. Michael Good MD Other Provider Active St art: [...] Active Member Role/Relationship Status Dates Dr. Marycarmen Rodrigeuz DO Primary Care Provider Active Start: December [...] 07, 2024 End: December 08, 2024 Dr. Tro Irizarry DO Emergency Provider Activ e Start: [...] 2024 End: December 12, 2024 Gustabo Pérez GROUP CONTROLLER, GROUP CONTROLLER-C Attending Provider Active S tart: December 12, [...] Active Start : December 02, 2024 Dr. Michael Good MD Other Provider Active St art: [...] Active Start: December 12, 2024 Gustabo Pérez GROUP CONTROLLER, GROUP CONTROLLER-C Attending Provider Active S tart: December 12, 2024 Gustabo Pérez GROUP CONTROLLER, GROUP CONTROLLER-C Referring Provider Active S tart: December 12, [...] 2024 End: December 12, 2024 Gustabo Pérez GROUP CONTROLLER, GROUP CONTROLLER-C Attending Provider Active S tart: December 12, 2024 End: December 12, 2024 Gustabo Pérez GROUP CONTROLLER, GROUP CONTROLLER-C Referring Provider Active S tart: December 12, [...] 2024 End: December 07, 2024 Tess Balderas GROUP CONTROLLER, GROUP CONTROLLER-C Attending Provider Active Start: December 07, 2024 [...] 2024 End: December 12, 2024 Gustabo Pérez GROUP CONTROLLER, GROUP CONTROLLER-C Attending Provider Active S tart: December 12, 2024 End: December 12, 2024 Team Status: Inactive Member Role/Relationship Status Dates Dr. Marycarmen Rodriguez DO Primary Care Provider Active Start: December 12, 2024 End: December 12, 2024 Gustabo Pérez GROUP CONTROLLER, GROUP CONTROLLER-C Attending Provider Active S tart: December 12, 2024 End: December 12, 2024 Gustabo Pérez GROUP CONTROLLER, GROUP CONTROLLER-C Referring Provider Active S tart: December 12, [...] Star t: December 16, 2024 Dr. Sunil aFye MD Other Provider Active Start : December [...] Provider Active Start: December 17, 2024 Dr. Marycaremn Marlow DO Other Provider Active S tart: [...] Active Start: December 25, 2024 Dr. Tyler Aiken DO [...] Start: December 26, 2024 Dr. Andrae Kennedy DO Emergency Provider Active Start: December 26, 2024 Dr. Alka Leo MD Admit Provider Active St art: December 26, 2024 Dr. Alka Leo MD Other Provider Active St art: December 26, 2024 Dr. Timothy Sexton MD Other Provider Active Sta rt: December 26, 2024 Dr. Tyler Aiken DO Other Provider Active St art: December 26, [...] Provider Active Star t: December 26, 2024 Team Status: Inactive Member Role/Relationship Status Dates Dr. Marycarmen Rodriguez , Primary Care Provider Active Start: December 24, 2024 End: December 26, 2024 Dr. Andrae Kennedy , Emergency Provider Active Start: December 24, 2024 End: December 26, 2024 Dr. Alka Leo MD Admit Provider Active St art: December 24, 2024 End: December 26, 2024 Dr. Alka Leo MD Other Provider Active St art: December 24, 2024 End: December 26, 2024 Dr. Timothy Sexton MD Other Provider Active Sta rt: December 24, 2024 End: December 26, 2024 Dr. Tyler Aiken DO Other Provider Active St art: December 24, 2024 End: December 26, 2024 YRN Vizcaino Other Provider Active Start : December 24, 2024 End: December 26, 2024 YRN Galindo Other Provider Active St art: December 24, 2024 End: December 26, 2024 PARISH Figueroa Other Provider Active Star t: December 24, 2024 End: December 26, 2024 Dr. Eladio Melendez MD Attending Provider Active Start: December 24, 2024 End: December 26, 2024 Dr. Alex Sanon MD Other Provider Active Star t: December 24, 2024 End: December 26, 2024 Team Status: Active Member Role/Relationship Status Dates Dr. Marycarmen Rodriguez DO Primary Care Provider Active Start: December 27, 2024 Boyd SWAIN MD Attending Provider Active Start: December 27, 2024 Team Status: Active Member Role/Relationship Status Dates Dr. Marycarmen Rodriguez DO Primary Care Provider Active Start: December 28, 2024 Boyd SWAIN MD Attending Provider Active Start: December 28, 2024 Team Status: Inactive Member Role/Relationship Status Dates Dr. Marycarmen Rodriguez DO Primary Care Provider Active Start: January 01, 2025 End: January 01, 2025 Dr. Shaan Hirsch , Emergency Provider Active Start: January 01, 2025 End: January 01, 2025 Goals (unrecognized section and content) Goals may [...] may be documented in an alternate section No data available for this section FOR RECORDS PERTAINING TO PATIENTS WHO [...] BE BASED ON THE PRIMARY CLINICAL RECORDS. [facility] [employer] [facility]. provides no warranty or guarantee of the accuracy or completeness of information in this document.
[2025-01-20 15:00] VITALS: BP 115/80; PULSE 80; RESP 16; O2SAT 98
[2025-01-20 15:05] LABS: Anion Gap 12 (5-15); BUN 17 mg/dL (4-19); BUN/Creat Ratio 13.0 RATIO (10-20); Calcium,Total 8.9 mg/dL (7.6-11.0); Carbon Dioxide 22.1 mmol/L (21.0-32.0); Chloride 105 mmol/L (98-108); Estimated Creatinine Clearance 53.86 ml/min (50-250); Glucose 130 mg/dL (70-99); Potassium 4.0 mmol/L (3.3-5.1); Troponin T High Sensitivity 77 ng/L (<=22)
[2025-01-20 16:00] VITALS: BP 111/75; PULSE 80; O2SAT 100
--- NOTE | 2025-01-20 16:24 | CM.ED ---
Social Work Date of referral: 01/20/2025 Reason for referral: No Advanced Care Directives (ACD's) on file. Referred by: Social Work Identification Patient provided consent for social work visit. [employer] Laying [employer] Gluing Machine Operator requested a copy of patient's ACD's which patient and patient's family stated they would bring in. Opal Knox, SPECIAL EDUCATION PARA PROFESSIONAL, THEORETICAL PHYSICIST
[2025-01-20 16:40] LABS: Troponin T High Sens 2 HR 78 ng/L (<=22)
[2025-01-20 17:00] VITALS: BP 119/90; PULSE 78; O2SAT 100
[2025-01-20 17:18] VITALS: BP 119/90; PULSE 78; RESP 16; TEMP 36.6; O2SAT 100
== END 2025-01-20 17:19 | disposition home or self-care (01) ==
PROVIDERS: Emergency Provider Emergency Medicine; PCP Family Medicine; Visit Provider Emergency Medicine
DX: R07.9 Chest pain, unspecified (principal); N18.4 Chronic kidney disease, stage 4 (severe); I13.0 Hypertensive heart and chronic kidney disease with heart failure and stage 1 through stage 4 chronic kidney disease, or unspecified chronic kidney disease; I50.32 Chronic diastolic (congestive) heart failure; J44.9 Chronic obstructive pulmonary disease, unspecified; E11.22 Type 2 diabetes mellitus with diabetic chronic kidney disease; E78.5 Hyperlipidemia, unspecified; I25.10 Atherosclerotic heart disease of native coronary artery without angina pectoris; I25.5 Ischemic cardiomyopathy; Z95.5 Presence of coronary angioplasty implant and graft; Z87.891 Personal history of nicotine dependence; Z86.73 Personal history of transient ischemic attack (TIA), and cerebral infarction without residual deficits; Z90.49 Acquired absence of other specified parts of digestive tract; I25.2 Old myocardial infarction; Z86.16 Personal history of COVID-19
CPT/HCPCS: 71045; 80048; 84484; 85025; 93005; 99285

== ENCOUNTER → 2025-02-02 | Outpatient (CLI) | payer MEDICARE, OTHER, SELFPAY ==
[2018-08-03 13:04] VITALS: BMI 19.8
[2025-02-02 14:25] LABS: Hematocrit 39.5 % (40-54); Hemoglobin 12.2 g/dL (13.0-16.5); Immature Granulocytes Count 0.020 X10^3/uL (0.0-0.0); Mean Corp Hgb Conc 30.9 g/dL (32-36); Mean Corpuscular Volume 93.4 fL (80-94); Mean Platelet Vol. 13.7 fl (6.2-12.0); NRBC Flagged by Analyzer 0 % (0-5); Platelet Count 155 K/mm3 (150-450); RBC Distribution Width CV 16.1 % (11.6-14.6); RBC Distribution Width SD 54.5 fl (35.1-43.9); Red Blood Count 4.23 M/mm3 (4.6-6.2); White Blood Count 5.5 K/mm3 (4.4-11.0)
[2025-02-02 14:40] LABS: Anion Gap 14 (5-15); BUN 18 mg/dL (4-19); BUN/Creat Ratio 12.2 RATIO (10-20); Calcium,Total 9.2 mg/dL (7.6-11.0); Carbon Dioxide 20.8 mmol/L (21.0-32.0); Chloride 104 mmol/L (98-108); Glucose 168 mg/dL (70-99); Potassium 4.2 mmol/L (3.3-5.1); Pro- Brain NATRIURETIC PEPTIDE 2667 pg/mL (<=1800)
== END | disposition home or self-care (01) ==
LOC: LAB 13:20
PROVIDERS: PCP Family Medicine; Referring Provider Nurse Practitioner Gerontology; Visit Provider Nurse Practitioner Gerontology
DX: I25.119 Atherosclerotic heart disease of native coronary artery with unspecified angina pectoris (principal); R06.02 Shortness of breath
CPT/HCPCS: 36415; 80048; 83880; 85025

== ENCOUNTER → 2025-02-07 | Outpatient (CLI) | payer MEDICARE, OTHER, SELFPAY ==
[2018-08-03 13:04] VITALS: BMI 19.8
[2025-02-07 17:20] LABS: Hematocrit 42.5 % (40-54); Hemoglobin 13.2 g/dL (13.0-16.5); Immature Granulocytes Count 0.020 X10^3/uL (0.0-0.0); Mean Corp Hgb Conc 31.1 g/dL (32-36); Mean Corpuscular Volume 91.2 fL (80-94); Mean Platelet Vol. 13.0 fl (6.2-12.0); NRBC Flagged by Analyzer 0 % (0-5); Platelet Count 171 K/mm3 (150-450); RBC Distribution Width CV 15.9 % (11.6-14.6); RBC Distribution Width SD 52.8 fl (35.1-43.9); Red Blood Count 4.66 M/mm3 (4.6-6.2); White Blood Count 6.1 K/mm3 (4.4-11.0)
[2025-02-07 17:42] LABS: Anion Gap 14 (5-15); BUN 20 mg/dL (4-19); BUN/Creat Ratio 13.7 RATIO (10-20); Calcium,Total 9.1 mg/dL (7.6-11.0); Carbon Dioxide 22.1 mmol/L (21.0-32.0); Chloride 102 mmol/L (98-108); Glucose 148 mg/dL (70-99); Potassium 4.2 mmol/L (3.3-5.1); Pro- Brain NATRIURETIC PEPTIDE 2167 pg/mL (<=1800); Troponin T High Sensitivity 39 ng/L (<=22)
== END | disposition home or self-care (01) ==
LOC: LAB 16:55
PROVIDERS: PCP Family Medicine; Referring Provider Nurse Practitioner Family; Visit Provider Nurse Practitioner Family
DX: R06.00 Dyspnea, unspecified (principal); R07.9 Chest pain, unspecified; I25.5 Ischemic cardiomyopathy; Z95.5 Presence of coronary angioplasty implant and graft
CPT/HCPCS: 36415; 80048; 83880; 84484; 85025

== ENCOUNTER → 2025-02-09 | Outpatient (CLI) | payer MEDICARE, OTHER, SELFPAY ==
[2018-08-03 13:04] VITALS: BMI 19.8
[2025-02-09 13:39] LABS: Hematocrit 43.8 % (40-54); Hemoglobin 13.6 g/dL (13.0-16.5); Immature Granulocytes Count 0.020 X10^3/uL (0.0-0.0); Mean Corp Hgb Conc 31.1 g/dL (32-36); Mean Corpuscular Volume 90.9 fL (80-94); Mean Platelet Vol. 13.1 fl (6.2-12.0); NRBC Flagged by Analyzer 0 % (0-5); Platelet Count 185 K/mm3 (150-450); RBC Distribution Width CV 15.7 % (11.6-14.6); RBC Distribution Width SD 51.7 fl (35.1-43.9); Red Blood Count 4.82 M/mm3 (4.6-6.2); White Blood Count 6.8 K/mm3 (4.4-11.0)
[2025-02-09 14:24] LABS: Anion Gap 13 (5-15); BUN 33 mg/dL (4-19); BUN/Creat Ratio 21.0 RATIO (10-20); Calcium,Total 9.5 mg/dL (7.6-11.0); Carbon Dioxide 24.4 mmol/L (21.0-32.0); Chloride 101 mmol/L (98-108); Glucose 151 mg/dL (70-99); Potassium 4.3 mmol/L (3.3-5.1)
== END | disposition home or self-care (01) ==
PROVIDERS: PCP Family Medicine; Referring Provider Nurse Practitioner Family; Visit Provider Nurse Practitioner Family
DX: R06.02 Shortness of breath (principal); R07.9 Chest pain, unspecified
CPT/HCPCS: 36415; 80048; 85025

== ENCOUNTER 2025-02-19 19:17 | Emergency (ER) | payer MEDICARE, OTHER, SELFPAY ==
[2018-08-03 13:04] VITALS: BMI 19.8
[2025-02-19 19:18] VITALS: BP 112/70; PULSE 71; RESP 18; TEMP 37.2; O2SAT 95; BMI 32.6
--- NOTE | 2025-02-19 19:58 | EKG12_ITS ---
Test Reason : CP Blood Pressure : */* mmHG Vent. Rate : 80 BPM Atrial Rate : 80 BPM P-R Int : 186 ms QRS Dur : 66 ms QT Int : 432 ms P-R-T Axes : 76 -13 -46 degrees QTcB Int : 498 ms Normal sinus rhythm Low voltage QRS Nonspecific ST and T wave abnormality QTcB >= 480 msec Abnormal ECG Confirmed by CONCHIS PALOMO, DELFINA ([id number]), scientific editor MARÍA AMBROSIO ([id number]) on 03/19/2025 8:19:31 AM Referred By: Confirmed By: DELFINA BALDERRAMA MD
--- NOTE | 2025-02-19 20:00 | RAD_ITS ---
PROCEDURE: CHEST 1 VIEW (PORTABLE) 02/19/2025 REASON FOR EXAM: CHEST PAIN TECHNIQUE: Frontal view of the chest. COMPARISON: 01/20/2025 FINDINGS: [id number] pulmonary edema. Mild bibasilar pleural effusions. Left lower lobe opacity not excluded. No pneumothorax. Borderline enlarged heart. Calcified aortic arch. No acute fractures. RAD/Chest 1 View (Portable) IMPRESSION: [id number] pulmonary edema. Mild bibasilar pleural effusions. Left lowe r lobe opacity not excluded. Reading Location: [id number]
[2025-02-19 20:17] VITALS: BP 113/79; PULSE 71; RESP 17; O2SAT 95
[2025-02-19 20:17] LABS: Hematocrit 40.5 % (40-54); Hemoglobin 12.8 g/dL (13.0-16.5); Immature Granulocytes Count 0.030 X10^3/uL (0.0-0.0); Mean Corp Hgb Conc 31.6 g/dL (32-36); Mean Corpuscular Volume 89.0 fL (80-94); Mean Platelet Vol. 13.5 fl (6.2-12.0); NRBC Flagged by Analyzer 0 % (0-5); Platelet Count 170 K/mm3 (150-450); RBC Distribution Width CV 15.1 % (11.6-14.6); RBC Distribution Width SD 49.5 fl (35.1-43.9); Red Blood Count 4.55 M/mm3 (4.6-6.2); White Blood Count 7.3 K/mm3 (4.4-11.0)
--- OUTSIDE RECORDS SUMMARY | 2025-02-19 20:26 | XMS RPT_ITS | CCD ---
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 Marycarmen Rodriguez Referring Provider [phone] Mike PEREA, YRN Laguna Attending Provider Dr. Darnell Corral Attending Provider Mike SHEET TURNER, SHEET TURNER-C Luz Elena Referring Provider Mike SHEET TURNER, SHEET TURNER-C Luz Elena Other Provider [phone] Dr. John Palacios Attending Provider [phone] Mike SHEET TURNER, SHEET TURNER-C Luz Elena Referring Provider Dr. Marycarmen Rodriguez Primary Care Provider [phone] Dr. Marycarmen Rodriguez Referring Provider Mike SHEET TURNER, SHEET TURNER-C Luz Elena Attending Provider Dr. Zen East Attending Provider Dr. Marycarmen Rodriguez Primary Care Provider [phone] Dr. Marycarmen Rodriguez Referring Provider Dr. Merritt Persaud Attending Provider PARISH Youssef Attending Provider [phone] Mike PEREA, SHEET TURNER-C Luz Elena Attending Provider Dr. John Palacios [...] Provider Dr. Aimee Cummins Attending Provider Mike SHEET TURNER, SHEET TURNER-C Luz Elena Attending Provider Adina Vallejo Attending [...] Dr. Marycarmen Rodriguez DO Attending Provider Beto SHEET TURNER-C, Gustabo Gao Attending Provider Beto SHEET TURNER-C, Gustabo H Referring Provider Justina SHEET TURNER-CMarni Attending Provider Justina SHEET TURNER-CMarni Referring Provider Dr. Marycarmen Rodriguez DO Primary Care Provider Dr. Marycarmen Rodriguez DO Referring Provider Dr. Jose Hay MD Attending Provider Justina PEREA-CMarni Other Provider Dr. Zen East DO Attending Provider Dr. Marycarmen Rodriguez DO Primary Care Provider Marly CATHERINE, Dr. Dow Referring Provider Marly DO, Dr. Dow Attending Provider Dr. Marycarmen Rodriguez DO Primary Care Provider Marly DO, Dr. Dow Referring Provider Brendon SHEET TURNER-CMaren Attending Provider Brendon SHEET TURNER-C, Maren Clarke Referring Provider [facility] , Dr. Zaldivar Attending Provider Pauline PALOMO, Dr. Guy Attending Provider Pauline PALOMO, Dr. Guy Referring Provider Roof SHEET TURNER-C, Gustabo Gao Other Provider Roof SHEET TURNER-C, Gustabo H Attending Provider Marly DO, Dr. Dow Primary Care Provider Marly DO, Dr. Dow Attending Provider Marly DO, Dr. Dow Primary Care Provider Horn SHEET TURNER-C, Marni Attending Provider Justina SHEET TURNER-C, Marni Referring Provider Marly DO, Dr. Dow Referring Provider Roof SHEET TURNER-C, Gustabo Gao Referring Provider Jennifer PALOMO, Dr. Lucas Attending Provider Unavail bear Hay MD, Dr. Garcia Attending Provider MarlyDr. Marycarmen vera DO Primary Care Provider Justina SHEET TURNER-CMarni Attending Provider Justina SHEET TURNER-CMarni Referring Provider MarlyDr. Marycarmen vera DO Referring Provider Brendon SHEET TURNER-CMaren Attending Provider Brendon SHEET TURNER-CMaren Referring Provider Dr. Marycarmen Rodriguez DO Attending Provider Pauline PALOMO, Dr. Guy Attending Provider Pauline PALOMO, Dr. Guy Referring Provider Roof SHEET TURNER-C, Gustabo H Other Provider Roof SHEET TURNER-C, Gustabo H Attending Provider Roof SHEET TURNER-C, Gustabo H Referring Provider Jennifer PALOMO, Dr. Lucas Attending Provider Unavailab bear Hay MD, Dr. Garcia Attending Provider Isael Bernabe MD Emergency Provider Jose Armando PALOMO, Dr. Garcia Admit Provider Jose Armando PALOMO, Dr. Garcia Referring Provider Keyana CATHERINE, Dr. Rosario Admit Provider Dr. Abraham Ridley DO Attending Provider Dr. Marycarmen Rodriguez DO Primary Care Provider Horn SHEET TURNER-C, Marni Attending Provider Justina SHEET TURNER-C, Marni Referring Provider Isael Bernabe MD Attending Provider Dr. Abraham Ridley DO Other Provider Dr. Nickie Danielson DO Attending Provider Elvis Olvera MD Other Provider Unavailable Dr. Sangeeta Negro MD Other Provider Faye Kingsley MD Other Provider Unavailable Dr. Petrona Vargas DO Other Provider Cain PALOMO, Dr. Harvey Other Provider Dr. Diogenes Sheehan MD Other Provider Carrington PALOMO, Dr. Alcala Other [...] Provider Hilton PALOMO, Dr. Iqbal Emergency Provider [phone] Tatiana PALOMO, Dr. Arevalo Referring Provider Dr. Abraham Ridley DO Admit Provider Dr. Abraham Ridley DO Other Provider Elvis Olvera MD Other Provider Unavailable Dr. Sangeeta Negro MD Other Provider Faye Kingsley MD Other Provider Unavailable Dr. Petrona Vargas DO Other Provider Cain PALOMO, Dr. Harvey Other Provider Dr. Diogenes Sheehan MD Other Provider Carrington PALOMO, Dr. Alcala Other Provider Nasim PALOMO, Dr. Whitaker Other Provider Dr. Seymour John MD Other Provider Willie PALOMO, Dr. Roldan Other Provider [phone] Xena PALOMO, Chrissy Other Provider Florentino PALOMO, [...] Dr. Arevalo Referring Provider Tatiana PALOMO, Dr. Arevlao Other Provider Gopal PALOMO, Dr. Shipman Other Provider Talita PALOMO, Dr. Johnson Attending Provider Unavailkira Herron MD, Dr. Shipman Attending Provider Talita PALOMO, Dr. Johnson Other Provider Unavailable Gayle PALOMO, Dr. Burch Referring Provider Boyd Rock MD Attending Provider Unavaila heraclio Irizarry DO, Dr. Lentz Emergency Provider Tom CATHERINE, Dr. Garduno Admit Provider Tom CATHERINE, Dr. Garduno Attending Provider Tom CATHERINE, Dr. Garduno Other Provider Tom CATHERINE, Dr. Garduno Other Provider Tom CATHERINE, Dr. Garduno Attending Provider Boyd Rock MD Referring Provider Unavaila heraclio Weldon DO, Dr. Moe Emergency Provider Unavai lable Azouz MD, Dr. Barber Attending Provider Unavailab Jeremy PALOMO, Dr. Shipman Admit Provider Neyda PALOMO, Dr. Barber Other Provider Unavailable Ele CATHERINE, Dr. Dow Attending Provider Ele CATHERINE, Dr. Dow Other Provider Sherrie SHEET TURNER-C, Tess Attending Provider Shweta PALOMO, Dr. Nix [...] Attila CATHERINE, Dr. Scott Other Provider Amos SHEET TURNER-C, Karrie Other Provider Kyle SHEET TURNER-C, Opal Other Provider Lois Grullon Other Provider [...] Unavailab Fabien CATHERINE, DR VERDUZCO Consulting Unavailable Isael Bernabe Attending Unavailable Marycarmen Rodriguez Primary Care Unavailable Marycarmen Rodriguez Primary Care Unavailable Isael Bernabe Attending Unavailable Abraham Ridley Consulting Unavailable Abraham Ridley Admitting Unavailable Abraham Ridley Attending Unavailable Marly, Marycarmen Primary Care Unavailable Jose Armando, Jose Referring Unavailable Sunil Faye Consulting Unavailable Ramonita Herron Admitting Unavailable Marycarmen Marlow Attending Unavailable Marly, Marycarmen Primary Care Unavailable Ramonita Herron Consulting Unavailable Marly, Marycarmen Primary Care Unavailable Sherrie SHEET TURNER, Tess Attending Unavailable [facility] Marycarmen Primary Care Unavailable Sherrie SHEET TURNER, Tess Attending Unavailable [facility] Marycarmen Primary Care Unavailable Horn SHEET TURNER, Marni Attending Unavailable Horn SHEET TURNER, Marni Referring Unavailable Marly, Marycarmen Primary Care Unavailable Olemie OLS, Efewongbe Attending Unavailabl e Roof SHEET TURNER, Gustabo H Attending Unavailable Roof SHEET TURNER, Gustabo H Referring Unavailable [facility] Primary Care Unavailable [facility] Primary Care Unavailable Shweta SWAIN Efewongbe Attending Unavailabl e Marly Marycarmen Primary Care Unavailable Roof SHEET TURNER, Gustabo H Referring Unavailable Roof SHEET TURNER, Gustabo H Attending Unavailable [facility] Primary Care Unavailable Olemie OLS Efewongbe Attending Unavailabl e Jose Armando, Jose Admitting Unavailable Jose Armando, Jose Referring Unavailable Marly, Marycarmen Primary Care Unavailable Jose Armando, Jose Attending Unavailable Marly, Marycarmen Primary Care Unavailable Olemie OLS Efewongbe Attending Unavailabl e MarlyMarycarmen Primary Care Unavailable Oleghe OLS, Efewongbe Attending Unavailabl e Marly, Marycarmen Primary Care Unavailable Oleghe OLS, Efewongbe Referring Unavailabl e Shweta SWAIN Efewongbe Attending Unavailabl Nickie Isabel Attending Unavailable Elvis Olvera Consulting Unavailable Adeli, Amir Consulting Unavailable Hinduja, Faye Consulting Unavailable Sam, Petrona Consulting Unavailable Zha, Candice Consulting Unavailable Sissy, Diogenes Consulting Unavailable Carrington Cari Consulting Unavailable Sherman Rouse Consulting Unavailable Seymour John Consulting Unavailable Jamar Tapia Consulting Unavailable Chrissy Mccallum Consulting Unavailable Michael Good Consulting Unavailable Sarah Beth Candelaria Consulting Unavailable Jody Kwon Consulting Unavailable Arnav, Fermin Hernandez Consulting UnavailMin Woodruff Consulting Unavailable Nick Bernard Consulting Unavailable Zay Alanis Consulting Unavailable Kristina Dainelson Consulting Unavailable Ernestina Milan Consulting Unavailable Nickie Danielson Consulting Unavailable Marcin Araujo Attending Unavailable Alex Sanon Attending Unavailable Jopperi, Shaan Admitting Unavailable Marly, Marycarmen Primary Care Unavailable Jopperi, Shaan Consulting Unavailable Marly, Marycarmen Primary Care Unavailable Jose Armando, Jose Referring Unavailable Jose Armando, Jose Attending Unavailable Marly, Marycarmen Primary Care Unavailable Timothy Sexton Consulting Unavailable Eladio Melendez Attending Unavailable Alka Leo Admitting Unavailable Attila, Tyler Consulting Unavailable Karrie Trinidad Consulting Unavailable Opal Wright Consulting Unavailable Lois Corea Consulting Unavailable Alka Leo Consulting Unavailable Alex Sanon Consulting Unavailable Eladio Melendez Consulting Unavailable Eladio Melendez Referring Unavailable Attila, Tyler Attending Unavailable Alka Leo Attending Unavailable Ramonita Herron Admitting Unavailable TerMarycarmen marie Attending Unavailable Marly, Marycarmen Primary Care Unavailable Sunil Faye Consulting Unavailable Ramonita Herron Consulting Unavailable Tereletsky, Marycarmen Consulting Unavailable Marly, Marycarmen Primary Care Unavailable Aimee Cummins Attending Unavailable Alka Leo Referring Unavailable Marly, Marycarmen Primary Care Unavailable Jose Armando, Jose Attending Unavailable Lance Rodriguez Attending Unavailable Tatiana, Mickey Referring Unavailable Abraham Ridley Admitting Unavailable Abraham Ridley Consulting Unavailable Marcin Araujo Attending Unavailable Marly, Marycarmen Primary Care Unavailable Mostafa, Mickey Consulting Unavailable Ramonita Herron Consulting Unavailable Alex Sanon Consulting Unavailable AzouzSunil Attending Unavailable Marly, Marycarmen Primary Care Unavailable Marly, Marycarmen Primary Care Unavailable Jopperi, Shaan Admitting Unavailable Jopperi, Shaan Attending Unavailable Jopperi, Shaan Consulting Unavailable Marly, Marycarmen Referring Unavailable Marly, Marycarmen Primary Care Unavailable Marni Horn NP Attending Unavailable Marly, Marycarmen Referring Unavailable Marly, Marycarmen Primary Care Unavailable Beto SHEET TURNER, Gustabo Gao Attending Unavailable Marly, Marycarmen Primary Care Unavailable Beto SHEET TURNER, Gustabo Gao Attending Unavailable Marly, Marycarmen Referring Unavailable Marly, Marycarmen Primary Care Unavailable Tess Balderas NP Attending Unavailable Mostafa, Mickey Referring Unavailable Mosteller, Abraham Consulting Unavailable Mosteller, Abraham Admitting Unavailable GayleMarcin Attending Unavailable Marly, Marycarmen Primary Care Unavailable Mostafa, Mickey Consulting Unavailable Ramonita Herron Consulting Unavailable Marly, Marycarmen Primary Care Unavailable Sherrie PEREA, Tess Attending Unavailable Marly, Marycarmen Primary Care Unavailable Sherrie SHEET TURNER, Tess Attending Unavailable Mostafa, Mickey Referring Unavailable Mosteller, Abraham Admitting Unavailable Mostrohit Abraham Consulting Unavailable Alex Sanon Attending Unavailable Marly, Marycarmen Primary Care Unavailable Moststara, Mickey Consulting Unavailable Ramonita Herron Consulting Unavailable Nickie Danielson Attending Unavailable Mostrohit, Abraham Consulting Unavailable Mosteller, Abraham Admitting Unavailable Marly, Marycarmen Primary Care Unavailable Jose Armando, Jose Referring Unavailable Elvis Olvera Consulting Unavailable Sangeeta Negro Consulting Unavailable Faye Kingsley Consulting Unavailable Petrona Vargas Consulting Unavailable Candice Barlow Consulting Unavailable Diogenes Sheehan Consulting Unavailable Cari Shultz Consulting Unavailable Sherman Rouse Consulting Unavailable Seymour John Consulting Unavailable Jamar Tapia Consulting Unavailable Chrissy Mccallum Consulting Unavailable Michael Good Consulting Unavailable Sarah Beth Candelaria Consulting Unavailable Jody Kwon Consulting Unavailable Arnav, Mhd David Consulting UnavailMin Woodruff Consulting Unavailable Bernard Rami Consulting Unavailable Zay Alanis Consulting Unavailable Kristina Danielson Consulting Unavailable Ernestina Milan Consulting Unavailable Marly, Marycarmen Primary Care Unavailable Eladio Melendez Attending Unavailable Timothy Sexton Consulting Unavailable Alka Leo Admitting Unavailable Attila, Tyler Consulting Unavailable Karrie Trinidad Consulting Unavailable Opal Wright Consulting Unavailable Lois Corea Consulting Unavailable Alka Leo Consulting Unavailable Alex Sanon Consulting Unavailable Marly, Marycarmen Primary Care Unavailable Shaan Hirsch Attending Unavailable Marly, Marycarmen Attending Unavailable Marly, Marycarmen Primary Care Unavailable Joyd Servin Referring Unavailable Marly, Marycarmen Primary Care Unavailable Jody Servin Attending Unavailable Marly, Marycarmen Attending Unavailable Marly, Marycarmen Primary Care Unavailable Marly, Marycarmen Primary Care Unavailable Shaan Hirsch Attending Unavailable Marly, Marycarmen Primary Care Unavailable Boyd Rock Attending Unavailable Marly, Marycarmen Primary Care Unavailable Tess Balderas NP Attending Unavailable Marly, Marycarmen Primary Care Unavailable Roof SHEET TURNER, Gustabo H Attending Unavailable Marly, Marycarmen Referring Unavailable Roof SHEET TURNER, Gustabo H Consulting Unavailable Roof SHEET TURNER, Gustabo H Referring Unavailable Marly, Marycarmen Primary Care Unavailable Jose Hay Attending Unavailable Marly, Marycarmen Primary Care Unavailable Horn SHEET TURNER, Marni Attending Unavailable Maren Olivas Referring Unavailable Maren Olivas Attending Unavailable Marly, Marycarmen Primary Care Unavailable Marly, Marycarmen Primary Care Unavailable Horn SHEET TURNER, Marni Attending Unavailable Horn SHEET TURNER, Marni Referring Unavailable Marly, Marycarmen Primary Care Unavailable Roof SHEET TURNER, Gustabo H Attending Unavailable Roof SHEET TURNER, Gustabo H Referring Unavailable Marly, Marycarmen Primary Care Unavailable Roof SHEET TURNER, Gustabo H Consulting Unavailable Brooks Carpenter Attending Unavailable Basali, Ayman Referring Unavailable Marly, Marycarmen Primary Care Unavailable Horn SHEET TURNER, Marni Referring Unavailable Horn SHEET TURNER, Marni Attending Unavailable Marly, Marycarmen Referring Unavailable Marly, Marycarmen Attending Unavailable Marly, Marycarmen Primary Care Unavailable Gayle, Kirksey Referring Unavailable Gayle, Marcin Attending Unavailable Marly, Marycarmen Primary Care Unavailable Marly, Marycarmen Primary Care Unavailable Roof SHEET TURNER, Gustabo H Attending Unavailable Roof SHEET TURNER, Gustabo H Referring Unavailable Marly, Marycarmen Primary Care Unavailable Roof SHEET TURNER, Gustabo H Attending Unavailable Roof SHEET TURNER, Gustabo H Referring Unavailable Marly, Marycarmen Primary Care Unavailable Mckeon SHEET TURNER, Luz Elena Referring Unavailable Mckeon SHEET TURNER, Luz Elena Attending Unavailable Marly, Marycarmen Primary Care Unavailable Roof SHEET TURNER, Gustabo H Referring Unavailable Roof SHEET TURNER, Gustabo H Attending Unavailable Marly, Marycarmen Primary Care Unavailable Horn SHEET TURNER, Marni Attending Unavailable Brooks Carpenter Attending Unavailable Marly, Marycarmen Primary Care Unavailable Pauline Ayman Referring Unavailable Jamey Tombe Attending Unavailabl e Olemie OLS Efewongbe Referring Unavailabl e Marly, Marycarmen Primary Care Unavailable Marly, Marycarmen Primary Care Unavailable Olemie BRYNN Efewongbe Attending Unavailabl e Marly, Marycarmen Primary Care Unavailable Maren Olivas Attending Unavailable Maren Olivas Referring Unavailable Marly, Marycarmen Primary Care Unavailable Horn SHEET TURNER, Marni Referring Unavailable Horn SHEET TURNER, Marni Attending Unavailable MarlyMarycarmen Attending Unavailable Marly, Marycarmen Primary Care Unavailable Ramonita Herron Attending Unavailable Marly, Marycarmen Primary Care Unavailable Gayle, Marcin Referring Unavailable Gayle, Kirksey Attending Unavailable Opal Wright Attending Unavailable Marly, Marycarmen Primary Care Unavailable Marly, Marycarmen Referring Unavailable Roof SHEET TURNER, Gustabo H Referring Unavailable Marly, Marycarmen Primary Care Unavailable Lance Rodriguez Attending Unavailable Marly, Marycarmen Primary Care Unavailable Horn SHEET TURNER, Marni Referring Unavailable Zen East Attending Unavailable Marly, Marycarmen Primary Care Unavailable BrownZen Attending Unavailable Horn SHEET TURNER, Marni Referring Unavailable Horn SHEET TURNER, Marni Consulting Unavailable Ramonita Herron Attending Unavailable Talita, Alex Attending Unavailable Abraham Ridley Attending Unavailable Alex Sanon Attending Unavailable Alex Sanon Consulting Unavailable Marly, Marycarmen Referring Unavailable Marly, Marycarmen Primary Care Unavailable Maren Olivas Attending Unavailable Marly, Marycarmen Referring Unavailable Marly, Marycarmen Primary Care Unavailable Jose ArmandoJose Attending Unavailable Marly, Marycarmen Primary Care Unavailable Jose Armando, Jose Attending Unavailable Marly, Marycarmen Referring Unavailable Marly, Marycarmen Primary Care Unavailable Roof SHEET TURNER, Gustabo Gao Attending Unavailable Marly, Marycarmen Referring Unavailable Roof SHEET TURNER, Gustabo Gao Attending Unavailable Marly, Marycarmen Referring Unavailable Marly, Marycarmen Primary Care Unavailable Marly, Marycarmen Primary Care Unavailable Maren Olivas Attending Unavailable Marly, Marycarmen Referring Unavailable Marly, Marycarmen Primary Care Unavailable Marly, Marycarmen Referring Unavailable Roof SHEET TURNER, Gustabo Gao Attending Unavailable Marly, Marycarmen Primary Care Unavailable Sherrie SHEET TURNER, Tess Attending Unavailable Marly, Marycarmen Primary Care Unavailable Tickton SHEET TURNER, Tess Attending Unavailable Marly, Marycarmen Primary Care Unavailable Roof SHEET TURNER, Gustabo Gao Attending Unavailable Roof SHEET TURNER, Gustabo H Referring Unavailable Marly, Marycarmen Primary Care Unavailable Horn SHEET TURNER, Marni Attending Unavailable Horn SHEET TURNER, Marni Referring Unavailable Allergies Allergy Classification Reported Allergen(s) Allergy Type Date of Onset Reaction(s) Facility (1 source) Doxycycline; Translations: [doxycycline] Drug Allergy stomach [facility] (1 source) Ticagrelor Drug Allergy 02-06-2025 [facility] Repository Medications Current Medications Medication Drug Class(es) [...] 10:49am DEPRESSION take 1 capsule by mo [facility] twice daily FLUoxetine (PROZAC) 40 MG [...] 1 Fills Dispensed: 0 lactobacillus rhamnosus gg [id number] unt oral capsule (1 source) Start: 01-01-2025 [...] as needed 0 April 17, 2024 1:00am [id number] 200 actuat albuter ol 0.09 mg/actuat metered [...] 400 MG PO DAILY June 04, 2019 10:41am June 04, 2019 [...] September 21, 2022 12:00am perflutren lipid microspheres (DEFINITY) 0.143 mg/mL solution [...] injector Discontinued 0.25 mg SC EVERY WEEK 1.4706 30April 17, 2024 1:00am May 14, 2024 [...] Acute and unspecified renal failure (20 sources) Bufmg-mj-ybhjbza renal failure; Translations: [Acute kidney failure, unspecified] Onset: 5 12-01-2024 Episodic Acute myocardial infarction (20 sources) Myocardial infarction; Translations: [ST elevation (STEMI) myocardial infarction of unspecified site] Onset: 5 11-30-2024 Chronic Asthma (20 sources) Asthma; Translations: [Unspecified asthma, uncomplicated] 10-31-2024 Chronic Cardiac dysrhythmias (20 sources) Paroxysmal ventricular tachycardia; 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 Procedure aborted. 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-Ch and Stent-Mid RCA x 2 Multi Link [...] [Shortness of breath] Onset: 5 Episodic Other non-traumatic joint disorders [...] limb edema; Translations: [Localized edema] 12-15-2022 Episodic Substance-related disorders (1 source) Opioid dependence, uncomplicated; Translations: [Opioid dependence, uncomplicated] Onset: 5 Chronic Superficial injury; contusion (20 sources) Contusion of left knee; Translations: [Contusion of left knee, initial encounter] 11-26-2024 Episodic Syncope (20 sources) Syncope; Translations: [Syncope and collapse] 11-26-2020 Episodic Thyroid disorders (2 sources) Hypothyroidism; Translations: [Hypothyroidism, unspecified] Onset: Chronic Transient cerebral ischemia (20 sources) Cerebral [...] sources) Palpitations; Translations: [Palpitations] Onset: 10-25-2024 Episodic Deficiency and other anemia (2 sources) Anemia, unspecified; Translations: [Anemia, unspecified] Onset: 10-05-2024 Episodic Other lower respiratory disease (8 sources) Other forms of dyspnea; Translations: [Other respiratory abnormalities] Onset: 05-19-2024 Episodic Other lower respiratory disease (1 source) Wheezing; Translations: [Wheezing] Onset: 10-31-2024 Episodic Other nervous system disorders (10 sources) [...] edema; Translations: [Edema] Onset: 10-25-2024 12-15-2022 Episodic Results Test Name Value Interpretation Reference Range Facility Basic Metabolic Profile (BMP )on 01-20-2025 BUN/CRE 13.0 RATIO Normal 02-19 [facility] Comment on above: Performed By: #### L 500.2500, L100.0100, L501.4021 ####[facility] [id number] [place], [address] Calcium [Mass/Vol] 8.9 mg/dL Normal 7.6-11.0 [facility] Comment on above: Performed By: #### L 500.2500, L100.0100, L501.4021 ####[facility] [id number] [place], [address] Chloride [Moles/Vol] 105 mmol/L Normal 98-108 [facility] Comment on above: Performed By: #### L 500.2500, L100.0100, L501.4021 ####[facility] [id number] [place], [address] CO2 [Moles/Vol] 22.1 mmol/L Normal 21.0-32.0 [facility] Comment on above: Performed By: #### L 500.2500, L100.0100, L501.4021 ####[facility] [id number] [place], [address] Creatinine [Mass/Vol] 1.28 mg/dL High 0.70-1.20 [facility] Comment on above: Performed By: #### L 500.2500, L100.0100, L501.4021 ####[facility] [id number] [place], [address] ECRCL 53.86 ml/min Normal 50-250 [facility] Comment on above: Performed By: #### L 500.2500, L100.0100, L501.4021 ####[facility] [id number] [place], [address] GAP 12 Normal 5-15 [facility] Comment on above: Performed By: #### L 500.2500, L100.0100, L501.4021 ####[facility] [id number] [place], [address] GFR/1.73 sq M.predicted among non-blacks MDRD (S/P/Bld) [Vol rate/Area] 57 mL/min/{1.73_m2} Low >60 [facility] Comment on above: Result Comment: mL/m in/1.73m2 CKD-EPI Creatinine Equation (2020) Performed By: #### L 500.2500, L100.0100, L501.4021 ####[facility] [address] [place], [address] Glucose [Mass/Vol] 130 mg/dL High 70-99 [facility] Comment on above: Performed By: #### L 500.2500, L100.0100, L501.4021 ####[facility] [address] [place], [address] Potassium [Moles/Vol] 4.0 mmol/L Normal 3.3-5.1 [facility] Comment on above: Result Comment: Hemo lysis present, Results??could be affected.?? Performed By: #### L 500.2500, L100.0100, L501.4021 ####[facility] [address] [place], [address] Sodium [Moles/Vol] 139 mmol/L Normal 133-145 [facility] Comment on above: Performed By: #### L 500.2500, L100.0100, L501.4021 ####[facility] [address] [place], [address] Urea nitrogen [Mass/Vol] 17 mg/dL Normal 4-19 [facility] Comment on above: Performed By: #### L 500.2500, L100.0100, L501.4021 ####[facility] [address] [place], [address] CBC W/Diff, Automatedon 01-02 0-2024 Absolute Lymph 0.95 X10 3/uL Normal 0.83-4.51 [facility] Comment on above: Performed By: #### L 500.2500, L100.0100, L501.4021 ####[facility] [address] [place], [address] Absolute Neut 4.3 X10 3/uL Normal 2.0-7.7 [facility] Comment on above: Performed By: #### L 500.2500, L100.0100, L501.4021 ####[facility] [address] [place], [address] Basophils/100 WBC (Bld) 0.7 % Normal 0-1 [facility] Comment on above: Performed By: #### L 500.2500, L100.0100, L501.4021 ####[facility] [address] [place], [address] Eosinophils/100 WBC (Bld) 0.8 % Normal 0-5 [facility] Comment on above: Performed By: #### L 500.2500, L100.0100, L501.4021 ####[facility] [address] [place], [address] Erythrocyte distribution width (RBC) [Ratio] 16.3 % High 11.6-14.6 [facility] Comment on above: Performed By: #### L 500.2500, L100.0100, L501.4021 ####[facility] [address] [place], [address] Hematocrit (Bld) [Volume fraction] 38.4 % Low 40-54 [facility] Comment on above: Performed By: #### L 500.2500, L100.0100, L501.4021 ####[facility] [address] [place], [address] Hemoglobin (Bld) [Mass/Vol] 11.9 g/dL Low 13.0-16.5 [facility] Comment on above: Performed By: #### L 500.2500, L100.0100, L501.4021 ####[facility] [address] [place], [address] IG% 0.700 Normal 0.0-0.9 [facility] Comment on above: Result Comment: IG% - Immature Granulocytes (promyelocytes, myelocytes andmetamyelocytes) > 1% indicates that a LEFT SHIFT is Present. Performed By: #### L 500.2500, L100.0100, L501.4021 ####[facility] [address] [place], [address] Lymphocytes/100 WBC (Bld) 15.6 % Low 19-41 [facility] Comment on above: Performed By: #### L 500.2500, L100.0100, L501.4021 ####[facility] [address] [place], [address] MCH (RBC) [Entitic mass] 28.5 pg Normal 27.0-32.0 [facility] Comment on above: Performed By: #### L 500.2500, L100.0100, L501.4021 ####[facility] [address] [place], [address] MCHC (RBC) [Mass/Vol] 31.0 g/dL Low 32-36 [facility] Comment on above: Performed By: #### L 500.2500, L100.0100, L501.4021 ####[facility] [address] [place], [address] MCV (RBC) [Entitic vol] 92.1 fL Normal 80-94 [facility] Comment on above: Performed By: #### L 500.2500, L100.0100, L501.4021 ####[facility] [address] [place], [address] Monocytes/100 WBC (Bld) 11.5 % High 0-10 [facility] Comment on above: Performed By: #### L 500.2500, L100.0100, L501.4021 ####[facility] [address] [place], [address] Neutrophils/100 WBC (Bld) 70.7 % High 47-70 [facility] Comment on above: Performed By: #### L 500.2500, L100.0100, L501.4021 ####[facility] [address] [place], [address] Nucleated RBC (Bld) [#/Vol] 0 10*3/uL Normal 0-5 [facility] Comment on above: Performed By: #### L 500.2500, L100.0100, L501.4021 ####[facility] [address] [place], [address] Platelet mean volume (Bld) [Entitic vol] 12.9 fL High 6.2-12.0 [facility] Comment on above: Performed By: #### L 500.2500, L100.0100, L501.4021 ####[facility] [address] [place], [address] Platelets (Bld) [#/Vol] 159 10*3/uL Normal 150-450 [facility] Comment on above: Performed By: #### L 500.2500, L100.0100, L501.4021 ####[facility] [address] [place], [address] RBC (Bld) [#/Vol] 4.17 10*6/uL Low 4.6-6.2 [facility] Comment on above: Performed By: #### L 500.2500, L100.0100, L501.4021 ####[facility] [address] [place], [address] RDW SD 54.3 fl High 35.1-43.9 [facility] Comment on above: Performed By: #### L 500.2500, L100.0100, L501.4021 ####[facility] [address] [place], [address] WBC (Bld) [#/Vol] 6.1 10*3/uL Normal 4.4-11.0 [facility] Comment on above: Performed By: #### L 500.2500, L100.0100, L501.4021 ####[facility] [address] [place], [address] Chest 1 View (Portable)on Chest 1 View (Portable) Normal [facility] Emergency Department Summary on 01-20-2025 Emergency Department Summary Normal [facility] L501.4021on 01-20-2025 Trop T High Sen 77 ng/L Invalid Interpretation Code <=22 [facility] Comment on above: Result Comment: Crit ical Result(s) Called at: 15:04 01-20-25 to Chio steele: Kesha Link??Results read back by same. Performed By: #### L 500.2500, L100.0100, L501.4021 ####[facility] [address] [place], [address] Troponin T HS 2 HRon 025 Trop T High Sen 78 ng/L Invalid Interpretation Code <=22 [facility] Comment on above: Result Comment: Crit ical Result(s) Called at: 16:40 01-20-25 to Linda Bateman: Kesha Nikolay??Results read back by same. Performed By: #### L 499.0042 ####[facility] [address] [place], [address] Cardiology Visit Reporton Cardiology Visit Report Normal [facility] .Auto Diffon 01-10-2025 Basophil, Absolute 0.0 10 3/mcL Normal 0.0-0.3 [facility] Comment on above: Performed By: #### D GLENDY #### [address] [address] Basophils/100 WBC (Bld) 0.5 % Normal 0.0-2.5 [facility] Comment on above: Performed By: #### D GLENDY #### [address] [address] Eosinophil, Absolute 0.1 10 3/mcL Normal 0.0-0.7 [facility] Comment on above: Performed By: #### D GLENDY #### [address] [address] Eosinophils/100 WBC (Bld) 1.2 % Normal 0.0-6.0 [facility] Comment on above: Performed By: #### D GLENDY #### [address] [address] Lymphocyte, Absolute 1.0 10 3/mcL Normal 0.9-4.3 [facility] Comment on above: Performed By: #### D GLENDY #### [place] [id number] [place] [address] Lymphocytes/100 WBC (Bld) 13.1 % Low 20.0-40.0 [facility] Comment on above: Performed By: #### D GLENDY #### [address] [address] Monocyte, Absolute 0.9 10 3/mcL Normal 0.1-1.4 [facility] Comment on above: Performed By: #### D GLENDY #### [address] [address] Monocytes/100 WBC (Bld) 11.2 % Normal 2.0-13.0 [facility] Comment on above: Performed By: #### D GLENDY #### [address] [address] Neutrophils/100 WBC (Bld) 74.0 % Normal 50.0-75.0 [facility] Comment on above: Performed By: #### D GLENDY #### [address] [address] .GFRon 01-10-2025 Estimated Glomerular Filtration Rate 50 ml/min/1.73sqm Normal [facility] Comment on above: Result Comment: [...] HFP, ANEU, ADIFF, MG, CBC, BMP #### [place] [address] .NEUABSon 01-10-2025 Neutrophil, Absolute 5.6 10 3/mcL Normal 2.3-8.1 [facility] Comment on above: Performed By: #### G FR, HFP, ANEU, ADIFF, MG, CBC, BMP #### [place] [address] BMPon 01-10-2025 BUN/Creatinine Ratio 9.2 ratio Low 10.0-22.0 [facility] Comment on above: Performed By: #### G FR, HFP, ANEU, ADIFF, MG, CBC, BMP #### [address] [address] Calcium [Mass/Vol] 9.2 mg/dL Normal 8.7-10.4 [facility] Comment on above: Performed By: #### G FR, HFP, ANEU, ADIFF, MG, CBC, BMP #### [address] [address] Chloride [Moles/Vol] 104 mmol/L Normal 98-110 [facility] Comment on above: Performed By: #### G FR, HFP, ANEU, ADIFF, MG, CBC, BMP #### [address] [address] CO2 [Moles/Vol] 25 mmol/L Normal 22-32 [facility] Comment on above: Performed By: #### G FR, HFP, ANEU, ADIFF, MG, CBC, BMP #### [address] [address] Creatinine [Mass/Vol] 1.42 mg/dL High 0.60-1.40 [facility] Comment on above: Result Comment: Test ing performed on Rivalry analyzer using enzymatic creatinine methodology. Performed By: #### G FR, HFP, ANEU, ADIFF, MG, CBC, BMP #### [place] [id number] Electrolyte Balance 12.0 mEq/L Normal 4.0-15.0 [facility] Comment on above: Performed By: #### G FR, HFP, ANEU, ADIFF, MG, CBC, BMP #### [address] [address] Glucose [Mass/Vol] 151 mg/dL High 82-115 [facility] Comment on above: Performed By: #### G FR, HFP, ANEU, ADIFF, MG, CBC, BMP #### [address] [address] Potassium [Moles/Vol] 3.6 mmol/L Normal 3.5-5.0 [facility] Comment on above: Performed By: #### G FR, HFP, ANEU, ADIFF, MG, CBC, BMP #### [place] [address] Sodium [Moles/Vol] 141 mmol/L Normal 136-145 [facility] Comment on above: Performed By: #### G FR, HFP, ANEU, ADIFF, MG, CBC, BMP #### [place] [address] Urea nitrogen [Mass/Vol] 13.0 mg/dL Normal 8.0-22.0 [facility] Comment on above: Performed By: #### G FR, HFP, ANEU, ADIFF, MG, CBC, BMP #### [place] [id number] CBCon 01-10-2025 Erythrocyte distribution width (RBC) [Ratio] 15.7 % High 11.5-15.5 [facility] Comment on above: Performed By: #### D GLENDY #### [place] [id number] Hematocrit (Bld) [Volume fraction] 37.0 % Low 40.0-52.0 [facility] Comment on above: Performed By: #### D GLENDY #### [place] [address] Hgb 12.0 G/dL Low 13.0-17.5 [facility] Comment on above: Performed By: #### D GLENDY #### [place] [address] MCH (RBC) [Entitic mass] 28.5 pg Normal 27.0-33.0 [facility] Comment on above: Performed By: #### D GLENDY #### [place] [address] MCHC 32.4 G/dL Normal 32.0-36.0 [facility] Comment on above: Performed By: #### D GLENDY #### [place] [id number] MCV (RBC) [Entitic vol] 87.9 fL Normal 81.0-100.0 [facility] Comment on above: Performed By: #### D GLENDY #### [place] [address] Platelet 171 10 3/mcL Normal 150-450 [facility] Comment on above: Performed By: #### D GLENDY #### [place] [address] Platelet mean volume (Bld) [Entitic vol] 10.8 fL High 6.4-10.5 [facility] Comment on above: Performed By: #### D GLENDY #### [place] [address] RBC 4.21 10 6/mcL Low 4.50-6.00 [facility] Comment on above: Performed By: #### D GLENDY #### [place] [address] WBC 7.6 10 3/mcL Normal 4.5-10.8 [facility] Comment on above: Performed By: #### D GLENDY #### [address] 01-10-2025 Bili Indirect 0.5 mg/dL Normal 0.1-10.0 [facility] Comment on above: Performed By: #### G FR, HFP, ANEU, ADIFF, MG, CBC, BMP #### [place] [address] Albumin Level 2.9 G/dL Low 3.2-4.8 [facility] Comment on above: Performed By: #### G FR, HFP, ANEU, ADIFF, MG, CBC, BMP #### [place] [address] Albumin/Globulin [Mass ratio] 0.8 {ratio} Low 0.9-1.6 [facility] Comment on above: Performed By: #### G FR, HFP, ANEU, ADIFF, MG, CBC, BMP #### [place] [address] ALP [Catalytic activity/Vol] 128 U/L High 38-126 [facility] Comment on above: Performed By: #### G FR, HFP, ANEU, ADIFF, MG, CBC, BMP #### [place] [address] ALT [Catalytic activity/Vol] 56 U/L High 12-55 [facility] Comment on above: Performed By: #### G FR, HFP, ANEU, ADIFF, MG, CBC, BMP #### [place] [address] AST [Catalytic activity/Vol] 27 U/L Normal 8-34 [facility] Comment on above: Performed By: #### G FR, HFP, ANEU, ADIFF, MG, CBC, BMP #### [place] [address] Bili Direct 0.2 mg/dL Normal 0.0-0.4 [facility] Comment on above: Result Comment: Use of this assay is not recommended for patients undergoing treatment with eltrombopag due to the potential for falsely elevated results. Performed By: #### G FR, HFP, ANEU, ADIFF, MG, CBC, BMP #### [place] [address] Bili Total 0.70 mg/dL Normal 0.20-1.20 [facility] Comment on above: Result Comment: Use of this assay is not recommended for patients undergoing treatment with eltrombopag due to the potential for falsely elevated results. Performed By: #### G FR, HFP, ANEU, ADIFF, MG, CBC, BMP #### [place] [address] Globulin 3.5 G/dL Normal 2.5-4.2 [facility] Comment on above: Performed By: #### G FR, HFP, ANEU, ADIFF, MG, CBC, BMP #### [place] [address] Total Protein 6.4 G/dL Normal 5.7-8.2 [facility] Comment on above: Performed By: #### G FR, HFP, ANEU, ADIFF, MG, CBC, BMP #### [place] [address] LABORATORYOrdered By: Danny Harrison on 01-10-2025 Blood Glucose Testing Reason Routine (01/10/25 11:14 AM) [facility] Work Phone: Glucose [Mass/Vol] 151 mg/dL High 82 - 115 mg/dL [facility] Work Phone: LABORATORYOrdered By: Kristyn William on 01-10-2025 Blood Glucose Testing Reason Routine (01/10/25 7:34 AM) [facility] Work Phone: Glucose [Mass/Vol] 133 mg/dL High 82 - 115 mg/dL [facility] Work Phone: LABORATORYOrdered By: SYSTEM SYSTEM on 01-10-2025 Albumin BCP dye [Mass/Vol] 2.9 G/dL Low 3.2 - 4.8 G/dL ADM SS Albumin/Globulin [Mass ratio] 0.8 {ratio} Low 0.9 - 1.6 ratio ADM SS ALP [Catalytic activity/Vol] 128 U/L High 38 - 126 U/L ADM SS ALT No additional P-5'-P [Catalytic activity/Vol] 56 U/L High 12 - 55 U/L ADM SS AST [Catalytic activity/Vol] 27 U/L Normal 8 - 34 U/L ADM SS Basophils (Bld) [#/Vol] 0.0 103/mcL Normal 0.0 - 0.3 10^3/mcL Workflow SS Basophils/100 WBC (Bld) 0.5 % Normal 0.0 - 2.5 % Workflow SS Bili Indirect 0.5 mg/dL Normal 0.1 - 10.0 mg/dL Chemistry S Bilirubin [Mass/Vol] 0.70 mg/dL Normal 0.20 - 1.20 mg/dL ADM [...] 11 0 mEq/L ADM SS CO2 [Moles/Vol] 25 mmol/L Normal 22 - 32 mEq/L AH ADM SS Creatinine [Mass/Vol] 1.42 mg/dL High 0.60 - 1.40 mg/dL AH ADM SS Comment on above: Interpretive Data: T esting performed on [employer] analyzer using enzymatic creatinine methodology. Electrolyte Balance [...] Filtration Rate 50 ml/min/1.73sqm Invalid Interpretation Code ADM SS Comment [...] 37.0 % Low 40.0 - 52.0 % AH Workflow SS Hemoglobin (Bld) [Mass/Vol] 12.0 G/dL Low 13.0 - 17.5 G/dL AH Workflow SS Lymphocytes (Bld) [#/Vol] 1.0 103/mcL Normal 0.9 - 4.3 10^3/mcL AH Workflow SS Lymphocytes/100 WBC (Bld) 13.1 % Low 20.0 - 40.0 % AH Workflow SS Magnesium [Mass/Vol] 2.2 mg/dL Normal 1.6 - 2 .4 mg/dL AH ADM SS MCH (RBC) [Entitic mass] 28.5 pg Normal 27.0 - 33.0 pg AH Workflow SS MCHC 32.4 G/dL Normal 32.0 - 36.0 G/dL AH Workflow SS MCV (RBC) [Entitic vol] 87.9 fL Normal 81.0 - 100.0 fL AH Workflow SS Monocytes (Bld) [#/Vol] 0.9 103/mcL [...] 6.4 G/dL Normal 5.7 - 8.2 G/dL AH ADM SS RBC (Bld) [#/Vol] 4.21 106/mcL Low 4.50 - 6.00 10^6/mcL AH Workflow SS Sodium [Moles/Vol] 141 mmol/L Normal 136 - 145 mEq/L ADM SS Urea nitrogen [Mass/Vol] 13.0 mg/dL Normal 8.0 - 22.0 mg/dL AH ADM SS Urea nitrogen/Creatinine [Mass ratio] 9.2 ratio Low 10.0 - 22.0 ratio AH ADM SS WBC (Bld) [#/Vol] 7.6 103/mcL Normal 4.5 - 10.8 10^3/mcL AH Workflow SS MGon 01-10-2025 Magnesium [Mass/Vol] 2.2 mg/dL Normal 1.6-2.4 [facility] Comment on above: Performed By: #### G FR, HFP, ANEU, ADIFF, MG, CBC, BMP #### [address] [address] .Auto Diffon 01-09-2025 Basophil, Absolute 0.0 10 3/mcL Normal 0.0-0.3 [facility] Comment on above: Performed By: #### D GLENDY #### [address] [address] Basophils/100 WBC (Bld) 0.3 % Normal 0.0-2.5 [facility] Comment on above: Performed By: #### D GLENDY #### [address] [address] Eosinophil, Absolute 0.1 10 3/mcL Normal 0.0-0.7 [facility] Comment on above: Performed By: #### D GLENDY #### [address] [address] Eosinophils/100 WBC (Bld) 1.3 % Normal 0.0-6.0 [facility] Comment on above: Performed By: #### D GLENDY #### [address] [address] Lymphocyte, Absolute 1.1 10 3/mcL Normal 0.9-4.3 [facility] Comment on above: Performed By: #### D GLENDY #### [address] [address] Lymphocytes/100 WBC (Bld) 19.1 % Low 20.0-40.0 [facility] Comment on above: Performed By: #### D GLENDY #### [address] [address] Monocyte, Absolute 0.7 10 3/mcL Normal 0.1-1.4 [facility] Comment on above: Performed By: #### D GLENDY #### [address] [address] Monocytes/100 WBC (Bld) 12.4 % Normal 2.0-13.0 [facility] Comment on above: Performed By: #### D GLENDY #### [address] [address] Neutrophils/100 WBC (Bld) 66.9 % Normal 50.0-75.0 [facility] Comment on above: Performed By: #### D GLENDY #### [address] [address] .GFRon 01-09-2025 Estimated Glomerular Filtration Rate 56 ml/min/1.73sqm Normal [facility] Comment on above: Result Comment: [...] results. Performed By: #### D GLENDY #### [address] [address] .NEUABSon 01-09-2025 Neutrophil, Absolute 3.9 10 3/mcL Normal 2.3-8.1 [facility] Comment on above: Performed By: #### D GLENDY #### [address] [address] BMPon 01-09-2025 BUN/Creatinine Ratio 9.2 ratio Low 10.0-22.0 [facility] Comment on above: Performed By: #### D GLENDY #### [address] [address] Calcium [Mass/Vol] 8.8 mg/dL Normal 8.7-10.4 [facility] Comment on above: Performed By: #### D GLENDY #### [address] [address] Chloride [Moles/Vol] 104 mmol/L Normal 98-110 [facility] Comment on above: Performed By: #### D GLENDY #### [address] [address] CO2 [Moles/Vol] 28 mmol/L Normal 22-32 [facility] Comment on above: Performed By: #### D GLENDY #### [place] [id number] Creatinine [Mass/Vol] 1.30 mg/dL Normal 0.60-1.40 [facility] Comment on above: Result Comment: Test ing performed on [employer] analyzer using enzymatic creatinine methodology. Performed By: #### D GLENDY #### [place] [id number] Electrolyte Balance 9.0 mEq/L Normal 4.0-15.0 [facility] Comment on above: Performed By: #### D GLENDY #### [place] [id number] Glucose [Mass/Vol] 103 mg/dL Normal 82-115 [facility] Comment on above: Performed By: #### D GLENDY #### [place] [address] Potassium [Moles/Vol] 3.3 mmol/L Low 3.5-5.0 [facility] Comment on above: Performed By: #### D GLENDY #### [place] [id number] Sodium [Moles/Vol] 141 mmol/L Normal 136-145 [facility] Comment on above: Performed By: #### D GLENDY #### [place] [id number] Urea nitrogen [Mass/Vol] 12.0 mg/dL Normal 8.0-22.0 [facility] Comment on above: Performed By: #### D GLENDY #### [place] [id number] CBCon 01-09-2025 Erythrocyte distribution width (RBC) [Ratio] 15.7 % High 11.5-15.5 [facility] Comment on above: Performed By: #### G FR, CBC, ANEU, ADIFF, MG, BMP, HFP #### [place] [id number] Hematocrit (Bld) [Volume fraction] 33.1 % Low 40.0-52.0 [facility] Comment on above: Performed By: #### G FR, CBC, ANEU, ADIFF, MG, BMP, HFP #### [place] [address] Hgb 10.9 G/dL Low 13.0-17.5 [facility] Comment on above: Performed By: #### G FR, CBC, ANEU, ADIFF, MG, BMP, HFP #### [place] [address] MCH (RBC) [Entitic mass] 29.1 pg Normal 27.0-33.0 [facility] Comment on above: Performed By: #### G FR, CBC, ANEU, ADIFF, MG, BMP, HFP #### [place] [address] MCHC 32.8 G/dL Normal 32.0-36.0 [facility] Comment on above: Performed By: #### G FR, CBC, ANEU, ADIFF, MG, BMP, HFP #### [place] [address] MCV (RBC) [Entitic vol] 88.8 fL Normal 81.0-100.0 [facility] Comment on above: Performed By: #### G FR, CBC, ANEU, ADIFF, MG, BMP, HFP #### [place] [address] Platelet 150 10 3/mcL Normal 150-450 [facility] Comment on above: Performed By: #### G FR, CBC, ANEU, ADIFF, MG, BMP, HFP #### [place] [address] Platelet mean volume (Bld) [Entitic vol] 11.2 fL High 6.4-10.5 [facility] Comment on above: Performed By: #### G FR, CBC, ANEU, ADIFF, MG, BMP, HFP #### [place] [address] RBC 3.73 10 6/mcL Low 4.50-6.00 [facility] Comment on above: Performed By: #### G FR, CBC, ANEU, ADIFF, MG, BMP, HFP #### [address] [address] WBC 5.8 10 3/mcL Normal 4.5-10.8 [facility] Comment on above: Performed By: #### G FR, CBC, ANEU, ADIFF, MG, BMP, HFP #### [address] [address] HFPon 01-09-2025 Bili Indirect 0.6 mg/dL Normal 0.1-10.0 [facility] Comment on above: Performed By: #### D GLENDY #### [place] [address] Albumin Level 2.8 G/dL Low 3.2-4.8 [facility] Comment on above: Performed By: #### D GLENDY #### [place] [address] Albumin/Globulin [Mass ratio] 0.8 {ratio} Low 0.9-1.6 [facility] Comment on above: Performed By: #### D GLENDY #### [place] [address] ALP [Catalytic activity/Vol] 107 U/L Normal 38-126 [facility] Comment on above: Performed By: #### D GLENDY #### [place] [address] ALT [Catalytic activity/Vol] 69 U/L High 12-55 [facility] Comment on above: Performed By: #### D GLENDY #### [place] [address] AST [Catalytic activity/Vol] 26 U/L Normal 8-34 [facility] Comment on above: Performed By: #### D GLENDY #### [place] [address] Bili Direct 0.3 mg/dL Normal 0.0-0.4 [facility] Comment on above: Result Comment: Use of this assay is not recommended for patients undergoing treatment with eltrombopag due to the potential for falsely elevated results. Performed By: #### D GLENDY #### [place] [id number] [place] [address] Bili Total 0.90 mg/dL Normal 0.20-1.20 [facility] [facility] Comment on above: Result Comment: Use of this assay is not recommended for patients undergoing treatment with eltrombopag due to the potential for falsely elevated results. Performed By: #### D GLENDY #### [place] [address] Globulin 3.3 G/dL Normal 2.5-4.2 [facility] Comment on above: Performed By: #### D GLENDY #### [place] [address] Total Protein 6.1 G/dL Normal 5.7-8.2 [facility] Comment on above: Performed By: #### D GLENDY #### [place] [address] LABORATORYOrdered By: Julieta Farr on 01-09-2025 Blood Glucose Testing Reason Routine (01/09/25 9:04 PM) [facility] Work Phone: Glucose [Mass/Vol] 145 mg/dL High 82 - 115 mg/dL [facility] Work Phone: LABORATORYOrdered By: SYSTEM SYSTEM [...] 0.90 mg/dL Normal 0.20 - 1.20 mg/dL AH [...] above: Interpretive Data: T esting performed on Rivalry analyzer using enzymatic creatinine methodology. Electrolyte Balance [...] 3.3 G/dL Normal 2.5 - 4.2 G/dL AH ADM SS Glucose [Mass/Vol] 103 mg/dL Normal 82 - 115 mg/dL AH ADM SS Hematocrit (Bld) [Volume fraction] 33.1 % Low 40.0 - 52.0 % AH Workflow SS Hemoglobin (Bld) [Mass/Vol] 10.9 G/dL Low 13.0 - 17.5 G/dL AH Workflow SS Lymphocytes (Bld) [#/Vol] 1.1 103/mcL Normal 0.9 - 4.3 10^3/mcL AH Workflow SS Lymphocytes/100 WBC (Bld) 19.1 % Low 20.0 - 40.0 % AH Workflow SS Magnesium [Mass/Vol] 2.1 mg/dL Normal 1.6 - 2 .4 mg/dL ADM SS MCH (RBC) [Entitic mass] 29.1 pg Normal 27.0 - 33.0 pg Workflow SS MCHC 32.8 G/dL Normal 32.0 - 36.0 G/dL Workflow SS MCV (RBC) [Entitic vol] 88.8 fL Normal 81.0 - 100.0 fL Workflow SS Monocytes (Bld) [#/Vol] 0.7 103/mcL Normal 0.1 - 1.4 10^3/mcL AH Workflow SS Monocytes/100 WBC (Bld) 12.4 % Normal 2.0 - 13.0 % AH Workflow SS Neutrophils (Bld) [#/Vol] 3.9 103/mcL Normal 2.3 - 8.1 10^3/mcL AH Workflow SS Neutrophils/100 WBC (Bld) 66.9 % Normal 50.0 - 75.0 % AH Workflow SS Platelet mean volume (Bld) [Entitic vol] 11.2 fL High 6.4 - 10.5 fL Workflow SS Platelets (Bld) [#/Vol] 150 103/mcL Normal 150 - 450 10^3/mcL AH Workflow SS Potassium [Moles/Vol] 3.3 mmol/L Low 3.5 - 5.0 mEq/L ADM SS Protein [Mass/Vol] 6.1 G/dL Normal 5.7 - 8.2 G/dL ADM SS RBC (Bld) [#/Vol] 3.73 106/mcL Low 4.50 - 6.00 10^6/mcL AH Workflow SS Sodium [Moles/Vol] 141 mmol/L Normal 136 - 145 mEq/L AH ADM SS Urea nitrogen [Mass/Vol] 12.0 mg/dL Normal 8.0 - 22.0 mg/dL AH ADM SS Urea nitrogen/Creatinine [Mass ratio] 9.2 ratio Low 10.0 - 22.0 ratio AH ADM SS WBC (Bld) [#/Vol] 5.8 103/mcL Normal 4.5 - 10.8 10^3/mcL AH Workflow SS MGon 01-09-2025 Magnesium [Mass/Vol] 2.1 mg/dL Normal 1.6-2.4 [facility] Comment on above: Performed By: #### D GLENDY #### [address] [address] .Auto Diffon 01-08-2025 Basophil, Absolute 0.0 10 3/mcL Normal 0.0-0.3 [facility] Comment on above: Performed By: #### G FR, CBC, ANEU, ADIFF, MG, BMP, HFP #### [address] [address] Basophils/100 WBC (Bld) 0.3 % Normal 0.0-2.5 [facility] Comment on above: Performed By: #### G FR, CBC, ANEU, ADIFF, MG, BMP, HFP #### [address] [address] Eosinophil, Absolute 0.1 10 3/mcL Normal 0.0-0.7 [facility] Comment on above: Performed By: #### G FR, CBC, ANEU, ADIFF, MG, BMP, HFP #### [address] [address] Eosinophils/100 WBC (Bld) 1.2 % Normal 0.0-6.0 [facility] Comment on above: Performed By: #### G FR, CBC, ANEU, ADIFF, MG, BMP, HFP #### [address] [address] Lymphocyte, Absolute 0.9 10 3/mcL Normal 0.9-4.3 [facility] Comment on above: Performed By: #### G FR, CBC, ANEU, ADIFF, MG, BMP, HFP #### [address] [address] Lymphocytes/100 WBC (Bld) 15.5 % Low 20.0-40.0 [facility] Comment on above: Performed By: #### G FR, CBC, ANEU, ADIFF, MG, BMP, HFP #### [address] [address] Monocyte, Absolute 0.7 10 3/mcL Normal 0.1-1.4 [facility] Comment on above: Performed By: #### G FR, CBC, ANEU, ADIFF, MG, BMP, HFP #### [address] [address] Monocytes/100 WBC (Bld) 11.6 % Normal 2.0-13.0 [facility] Comment on above: Performed By: #### G FR, CBC, ANEU, ADIFF, MG, BMP, HFP #### [address] [address] Neutrophils/100 WBC (Bld) 71.4 % Normal 50.0-75.0 [facility] Comment on above: Performed By: #### G FR, CBC, ANEU, ADIFF, MG, BMP, HFP #### [address] [address] .GFRon 01-08-2025 Estimated Glomerular Filtration Rate 57 ml/min/1.73sqm Normal [facility] Comment on above: Result Comment: [...] CBC, ANEU, ADIFF, MG, BMP, HFP #### [address] [address] .NEUABSon 01-08-2025 Neutrophil, Absolute 4.1 10 3/mcL Normal 2.3-8.1 [facility] Comment on above: Performed By: #### G FR, CBC, ANEU, ADIFF, MG, BMP, HFP #### [place] [id number] BMPon 01-08-2025 BUN/Creatinine Ratio 12.5 ratio Normal 10.0-22.0 [facility] Comment on above: Performed By: #### G FR, CBC, ANEU, ADIFF, MG, BMP, HFP #### [place] [address] Calcium [Mass/Vol] 8.4 mg/dL Low 8.7-10.4 [facility] Comment on above: Performed By: #### G FR, CBC, ANEU, ADIFF, MG, BMP, HFP #### [place] [address] Chloride [Moles/Vol] 104 mmol/L Normal 98-110 [facility] Comment on above: Performed By: #### G FR, CBC, ANEU, ADIFF, MG, BMP, HFP #### [place] [id number] CO2 [Moles/Vol] 26 mmol/L Normal 22-32 [facility] Comment on above: Performed By: #### G FR, CBC, ANEU, ADIFF, MG, BMP, HFP #### [place] [address] Creatinine [Mass/Vol] 1.28 mg/dL Normal 0.60-1.40 [facility] Comment on above: Result Comment: Test ing performed on [employer] analyzer using enzymatic creatinine methodology. Performed By: #### G FR, CBC, ANEU, ADIFF, MG, BMP, HFP #### [place] [address] Electrolyte Balance 11.0 mEq/L Normal 4.0-15.0 [facility] Comment on above: Performed By: #### G FR, CBC, ANEU, ADIFF, MG, BMP, HFP #### [place] [address] Glucose [Mass/Vol] 110 mg/dL Normal 82-115 [facility] Comment on above: Performed By: #### G FR, CBC, ANEU, ADIFF, MG, BMP, HFP #### [place] [id number] Potassium [Moles/Vol] 3.2 mmol/L Low 3.5-5.0 [facility] Comment on above: Performed By: #### G FR, CBC, ANEU, ADIFF, MG, BMP, HFP #### [place] [address] Sodium [Moles/Vol] 141 mmol/L Normal 136-145 [facility] Comment on above: Performed By: #### G FR, CBC, ANEU, ADIFF, MG, BMP, HFP #### [place] [address] Urea nitrogen [Mass/Vol] 16.0 mg/dL Normal 8.0-22.0 [facility] Comment on above: Performed By: #### G FR, CBC, ANEU, ADIFF, MG, BMP, HFP #### [place] [address] CBCon 01-08-2025 Erythrocyte distribution width (RBC) [Ratio] 15.3 % Normal 11.5-15.5 [facility] Comment on above: Performed By: #### G FR, CBC, ANEU, ADIFF, MG, BMP, HFP #### [place] [address] Hematocrit (Bld) [Volume fraction] 31.9 % Low 40.0-52.0 [facility] Comment on above: Performed By: #### G FR, CBC, ANEU, ADIFF, MG, BMP, HFP #### [place] [address] Hgb 10.6 G/dL Low 13.0-17.5 [facility] Comment on above: Performed By: #### G FR, CBC, ANEU, ADIFF, MG, BMP, HFP #### [place] [address] MCH (RBC) [Entitic mass] 28.9 pg Normal 27.0-33.0 [facility] Comment on above: Performed By: #### G FR, CBC, ANEU, ADIFF, MG, BMP, HFP #### [place] [address] MCHC 33.1 G/dL Normal 32.0-36.0 [facility] Comment on above: Performed By: #### G FR, CBC, ANEU, ADIFF, MG, BMP, HFP #### [place] [address] MCV (RBC) [Entitic vol] 87.2 fL Normal 81.0-100.0 [facility] Comment on above: Performed By: #### G FR, CBC, ANEU, ADIFF, MG, BMP, HFP #### [place] [address] Platelet 143 10 3/mcL Low 150-450 [facility] Comment on above: Performed By: #### G FR, CBC, ANEU, ADIFF, MG, BMP, HFP #### [place] [address] Platelet mean volume (Bld) [Entitic vol] 11.1 fL High 6.4-10.5 [facility] Comment on above: Performed By: #### G FR, CBC, ANEU, ADIFF, MG, BMP, HFP #### [place] [address] RBC 3.65 10 6/mcL Low 4.50-6.00 [facility] Comment on above: Performed By: #### G FR, CBC, ANEU, ADIFF, MG, BMP, HFP #### [place] [address] WBC 5.7 10 3/mcL Normal 4.5-10.8 [facility] Comment on above: Performed By: #### G FR, CBC, ANEU, ADIFF, MG, BMP, HFP #### [facility] [address] 01-08-2025 Bili Indirect 0.7 mg/dL Normal 0.1-10.0 [facility] Comment on above: Performed By: #### G FR, CBC, ANEU, ADIFF, MG, BMP, HFP #### [place] [address] Albumin Level 2.6 G/dL Low 3.2-4.8 [facility] Comment on above: Performed By: #### G FR, CBC, ANEU, ADIFF, MG, BMP, HFP #### [place] [address] Albumin/Globulin [Mass ratio] 0.8 {ratio} Low 0.9-1.6 [facility] Comment on above: Performed By: #### G FR, CBC, ANEU, ADIFF, MG, BMP, HFP #### [place] [address] ALP [Catalytic activity/Vol] 111 U/L Normal 38-126 [facility] Comment on above: Performed By: #### G FR, CBC, ANEU, ADIFF, MG, BMP, HFP #### [place] [address] ALT [Catalytic activity/Vol] 106 U/L High 12-55 [facility] Comment on above: Performed By: #### G FR, CBC, ANEU, ADIFF, MG, BMP, HFP #### [place] [address] AST [Catalytic activity/Vol] 43 U/L High 8-34 [facility] Comment on above: Performed By: #### G FR, CBC, ANEU, ADIFF, MG, BMP, HFP #### [place] [address] Bili Direct 0.3 mg/dL Normal 0.0-0.4 [facility] Comment on above: Result Comment: Use of this assay is not recommended for patients undergoing treatment with eltrombopag due to the potential for falsely elevated results. Performed By: #### G FR, CBC, ANEU, ADIFF, MG, BMP, HFP #### [place] [address] Bili Total 1.00 mg/dL Normal 0.20-1.20 [facility] Comment on above: Result Comment: Use of this assay is not recommended for patients undergoing treatment with eltrombopag due to the potential for falsely elevated results. Performed By: #### G FR, CBC, ANEU, ADIFF, MG, BMP, HFP #### [place] [address] Globulin 3.4 G/dL Normal 2.5-4.2 [facility] Comment on above: Performed By: #### G FR, CBC, ANEU, ADIFF, MG, BMP, HFP #### [place] [address] Total Protein 6.0 G/dL Normal 5.7-8.2 [facility] Comment on above: Performed By: #### G FR, CBC, ANEU, ADIFF, MG, BMP, HFP #### [place] [address] LABORATORYOrdered By: SYSTEM SYSTEM on 01-08-2025 Albumin [...] 0.3 mg/dL Normal 0.0 - 0.4 mg/dL AH ADM SS Comment on above: Interpretive Data: U se of this assay is not recommended for patients undergoing treatment with eltrombopag due to the potential for falsely elevated results. Calcium [Mass/Vol] 8.4 mg/dL Low 8.7 - 10. 4 mg/dL AH ADM SS Chloride [Moles/Vol] 104 mmol/L Normal 98 - 11 0 mEq/L AH ADM SS CO2 [Moles/Vol] 26 mmol/L Normal 22 - 32 mEq/L AH ADM SS Creatinine [Mass/Vol] 1.28 mg/dL Normal 0.60 - 1.40 mg/dL ADM SS Comment on above: Interpretive Data: T esting performed on [employer] analyzer using enzymatic creatinine methodology. Electrolyte Balance 11.0 mEq/L Normal 4.0 - 15 .0 mEq/L ADM SS Eosinophils (Bld) [#/Vol] 0.1 103/mcL Normal 0.0 - 0.7 10^3/mcL Workflow SS Eosinophils/100 WBC (Bld) 1.2 % Normal 0.0 - 6.0 % Workflow SS Erythrocyte distribution width (RBC) [Ratio] 15.3 % Normal 11.5 - 15.5 % Workflow SS Estimated Glomerular Filtration Rate 57 [...] 110 mg/dL Normal 82 - 115 mg/dL ADM SS Hematocrit (Bld) [Volume fraction] 31.9 % Low 40.0 - 52.0 % AH Workflow SS Hemoglobin (Bld) [Mass/Vol] 10.6 G/dL Low 13.0 - 17.5 G/dL AH Workflow SS Lymphocytes (Bld) [#/Vol] 0.9 103/mcL Normal 0.9 - 4.3 10^3/mcL AH Workflow SS Lymphocytes/100 WBC (Bld) 15.5 % Low 20.0 - 40.0 % AH Workflow SS Magnesium [Mass/Vol] 2.1 mg/dL Normal 1.6 - 2 .4 mg/dL ADM SS MCH (RBC) [Entitic mass] 28.9 pg Normal 27.0 - 33.0 pg Workflow SS MCHC 33.1 G/dL Normal 32.0 - 36.0 G/dL Workflow SS MCV (RBC) [Entitic vol] 87.2 fL Normal 81.0 - 100.0 fL Workflow SS Monocytes (Bld) [#/Vol] 0.7 103/mcL Normal 0.1 - 1.4 10^3/mcL AH Workflow SS Monocytes/100 WBC (Bld) 11.6 % Normal 2.0 - 13.0 % AH Workflow SS Neutrophils (Bld) [#/Vol] 4.1 103/mcL Normal 2.3 - 8.1 10^3/mcL AH Workflow SS Neutrophils/100 WBC (Bld) 71.4 % Normal 50.0 - 75.0 % Workflow SS Platelet mean volume (Bld) [Entitic vol] 11.1 fL High 6.4 - 10.5 fL Workflow SS Platelets (Bld) [#/Vol] 143 103/mcL Low 150 - 450 10^3/mcL AH Workflow SS Potassium [Moles/Vol] 3.2 mmol/L Low 3.5 - 5.0 mEq/L ADM SS Protein [Mass/Vol] 6.0 G/dL Normal 5.7 - 8.2 G/dL ADM SS RBC (Bld) [#/Vol] 3.65 106/mcL Low 4.50 - 6.00 10^6/mcL AH Workflow SS Sodium [Moles/Vol] 141 mmol/L Normal 136 - 145 mEq/L ADM SS Urea nitrogen [Mass/Vol] 16.0 mg/dL Normal 8.0 - 22.0 mg/dL AH ADM SS Urea nitrogen/Creatinine [Mass ratio] 12.5 ratio Normal 10.0 - 22.0 ratio AH ADM SS WBC (Bld) [#/Vol] 5.7 103/mcL Normal 4.5 - 10.8 10^3/mcL AH Workflow SS MGon 01-08-2025 Magnesium [Mass/Vol] 2.1 mg/dL Normal 1.6-2.4 [facility] Comment on above: Performed By: #### G FR, CBC, ANEU, ADIFF, MG, BMP, HFP #### [address] [address] .Auto Diffon 01-07-2025 Basophil, Absolute 0.0 10 3/mcL Normal 0.0-0.3 [facility] Comment on above: Performed By: #### G FR, HFP, ANEU, ADIFF, MG, CBC, BMP #### [place] [address] Basophils/100 WBC (Bld) 0.4 % Normal 0.0-2.5 [facility] Comment on above: Performed By: #### G FR, HFP, ANEU, ADIFF, MG, CBC, BMP #### [place] [address] Eosinophil, Absolute 0.0 10 3/mcL Normal 0.0-0.7 [facility] Comment on above: Performed By: #### G FR, HFP, ANEU, ADIFF, MG, CBC, BMP #### [place] [id number] Eosinophils/100 WBC (Bld) 0.9 % Normal 0.0-6.0 [facility] Comment on above: Performed By: #### G FR, HFP, ANEU, ADIFF, MG, CBC, BMP #### [place] [address] Lymphocyte, Absolute 0.6 10 3/mcL Low 0.9-4.3 [facility] Comment on above: Performed By: #### G FR, HFP, ANEU, ADIFF, MG, CBC, BMP #### [place] [id number] Lymphocytes/100 WBC (Bld) 10.5 % Low 20.0-40.0 [facility] Comment on above: Performed By: #### G FR, HFP, ANEU, ADIFF, MG, CBC, BMP #### [address] [address] Monocyte, Absolute 0.6 10 3/mcL Normal 0.1-1.4 [facility] Comment on above: Performed By: #### G FR, HFP, ANEU, ADIFF, MG, CBC, BMP #### [address] [address] Monocytes/100 WBC (Bld) 10.0 % Normal 2.0-13.0 [facility] Comment on above: Performed By: #### G FR, HFP, ANEU, ADIFF, MG, CBC, BMP #### [address] [address] Neutrophils/100 WBC (Bld) 78.2 % High 50.0-75.0 [facility] Comment on above: Performed By: #### G FR, HFP, ANEU, ADIFF, MG, CBC, BMP #### [place] [address] .GFRon 01-07-2025 Estimated Glomerular Filtration Rate 51 ml/min/1.73sqm Normal [facility] Comment on above: Result Comment: [...] CBC, ANEU, ADIFF, MG, BMP, HFP #### [place] [address] .NEUABSon 01-07-2025 Neutrophil, Absolute 4.5 10 3/mcL Normal 2.3-8.1 [facility] Comment on above: Performed By: #### G FR, CBC, ANEU, ADIFF, MG, BMP, HFP #### [address] [address] BMPon 01-07-2025 BUN/Creatinine Ratio 12.9 ratio Normal 10.0-22.0 [facility] Comment on above: Performed By: #### G FR, CBC, ANEU, ADIFF, MG, BMP, HFP #### [place] [address] Calcium [Mass/Vol] 9.1 mg/dL Normal 8.7-10.4 [facility] Comment on above: Performed By: #### G FR, CBC, ANEU, ADIFF, MG, BMP, HFP #### [place] [id number] Chloride [Moles/Vol] 105 mmol/L Normal 98-110 [facility] Comment on above: Performed By: #### G FR, CBC, ANEU, ADIFF, MG, BMP, HFP #### [place] [id number] CO2 [Moles/Vol] 25 mmol/L Normal 22-32 [facility] Comment on above: Performed By: #### G FR, CBC, ANEU, ADIFF, MG, BMP, HFP #### [place] [id number] Creatinine [Mass/Vol] 1.40 mg/dL Normal 0.60-1.40 [facility] Comment on above: Result Comment: Test ing performed on [employer] analyzer using enzymatic creatinine methodology. Performed By: #### G FR, CBC, ANEU, ADIFF, MG, BMP, HFP #### [place] [address] Electrolyte Balance 7.0 mEq/L Normal 4.0-15.0 [facility] Comment on above: Performed By: #### G FR, CBC, ANEU, ADIFF, MG, BMP, HFP #### [address] [address] Glucose [Mass/Vol] 120 mg/dL High 82-115 [facility] Comment on above: Performed By: #### G FR, CBC, ANEU, ADIFF, MG, BMP, HFP #### [place] [address] Potassium [Moles/Vol] 3.5 mmol/L Normal 3.5-5.0 [facility] Comment on above: Performed By: #### G FR, CBC, ANEU, ADIFF, MG, BMP, HFP #### [place] [address] Sodium [Moles/Vol] 137 mmol/L Normal 136-145 [facility] Comment on above: Performed By: #### G FR, CBC, ANEU, ADIFF, MG, BMP, HFP #### [place] [address] Urea nitrogen [Mass/Vol] 18.0 mg/dL Normal 8.0-22.0 [facility] Comment on above: Performed By: #### G FR, CBC, ANEU, ADIFF, MG, BMP, HFP #### [place] [address] CBCon 01-07-2025 Erythrocyte distribution width (RBC) [Ratio] 15.8 % High 11.5-15.5 [facility] Comment on above: Performed By: #### G FR, HFP, ANEU, ADIFF, MG, CBC, BMP #### [place] [address] Hematocrit (Bld) [Volume fraction] 31.5 % Low 40.0-52.0 [facility] Comment on above: Performed By: #### G FR, HFP, ANEU, ADIFF, MG, CBC, BMP #### [place] [address] Hgb 10.3 G/dL Low 13.0-17.5 [facility] Comment on above: Performed By: #### G FR, HFP, ANEU, ADIFF, MG, CBC, BMP #### [facility] [address] [place], [place] [address] MCH (RBC) [Entitic mass] 29.0 pg Normal 27.0-33.0 [facility] Comment on above: Performed By: #### G FR, HFP, ANEU, ADIFF, MG, CBC, BMP #### [address] [address] MCHC 32.6 G/dL Normal 32.0-36.0 [facility] Comment on above: Performed By: #### G FR, HFP, ANEU, ADIFF, MG, CBC, BMP #### [place] [address] MCV (RBC) [Entitic vol] 89.0 fL Normal 81.0-100.0 [facility] Comment on above: Performed By: #### G FR, HFP, ANEU, ADIFF, MG, CBC, BMP #### [place] [address] Platelet 134 10 3/mcL Low 150-450 [facility] Comment on above: Performed By: #### G FR, HFP, ANEU, ADIFF, MG, CBC, BMP #### [place] [address] Platelet mean volume (Bld) [Entitic vol] 11.3 fL High 6.4-10.5 [facility] Comment on above: Performed By: #### G FR, HFP, ANEU, ADIFF, MG, CBC, BMP #### [place] [id number] RBC 3.54 10 6/mcL Low 4.50-6.00 [facility] Comment on above: Performed By: #### G FR, HFP, ANEU, ADIFF, MG, CBC, BMP #### [place] [id number] WBC 5.8 10 3/mcL Normal 4.5-10.8 [facility] Comment on above: Performed By: #### G FR, HFP, ANEU, ADIFF, MG, CBC, BMP #### [place] [address] HFPon 01-07-2025 Bili Indirect 0.9 mg/dL Normal 0.1-10.0 [facility] Comment on above: Performed By: #### G FR, CBC, ANEU, ADIFF, MG, BMP, HFP #### [place] [address] Albumin Level 2.7 G/dL Low 3.2-4.8 [facility] Comment on above: Performed By: #### G FR, CBC, ANEU, ADIFF, MG, BMP, HFP #### [place] [address] Albumin/Globulin [Mass ratio] 0.8 {ratio} Low 0.9-1.6 [facility] Comment on above: Performed By: #### G FR, CBC, ANEU, ADIFF, MG, BMP, HFP #### [place] [address] ALP [Catalytic activity/Vol] 108 U/L Normal 38-126 [facility] Comment on above: Performed By: #### G FR, CBC, ANEU, ADIFF, MG, BMP, HFP #### [place] [address] ALT [Catalytic activity/Vol] 139 U/L High 12-55 [facility] Comment on above: Performed By: #### G FR, CBC, ANEU, ADIFF, MG, BMP, HFP #### [place] [address] AST [Catalytic activity/Vol] 75 U/L High 8-34 [facility] Comment on above: Performed By: #### G FR, CBC, ANEU, ADIFF, MG, BMP, HFP #### [place] [address] Bili Direct 0.5 mg/dL High 0.0-0.4 [facility] Comment on above: Result Comment: Use of this assay is not recommended for patients undergoing treatment with eltrombopag due to the potential for falsely elevated results. Performed By: #### G FR, CBC, ANEU, ADIFF, MG, BMP, HFP #### [place] [address] Bili Total 1.40 mg/dL High 0.20-1.20 [facility] Comment on above: Result Comment: Use of this assay is not recommended for patients undergoing treatment with eltrombopag due to the potential for falsely elevated results. Performed By: #### G FR, CBC, ANEU, ADIFF, MG, BMP, HFP #### [address] [address] Globulin 3.5 G/dL Normal 2.5-4.2 [facility] Comment on above: Performed By: #### G FR, CBC, ANEU, ADIFF, MG, BMP, HFP #### [place] [address] Total Protein 6.2 G/dL Normal 5.7-8.2 [facility] Comment on above: Performed By: #### G FR, CBC, ANEU, ADIFF, MG, BMP, HFP #### [address] [address] MGon 01-07-2025 Magnesium [Mass/Vol] 2.2 mg/dL Normal 1.6-2.4 [facility] Comment on above: Performed By: #### G FR, CBC, ANEU, ADIFF, MG, BMP, HFP #### [address] [id number] .Auto Diffon 01-06-2025 Basophil, Absolute 0.0 10 3/mcL Normal 0.0-0.3 [facility] Comment on above: Performed By: #### G FR, CBC, ANEU, ADIFF, MG, BMP, HFP #### [address] [address] Basophils/100 WBC (Bld) 0.0 % Normal 0.0-2.5 [facility] Comment on above: Performed By: #### G FR, CBC, ANEU, ADIFF, MG, BMP, HFP #### [address] [address] Eosinophil, Absolute 0.0 10 3/mcL Normal 0.0-0.7 [facility] Comment on above: Performed By: #### G FR, CBC, ANEU, ADIFF, MG, BMP, HFP #### [facility] [address] [place], [place] [address] Eosinophils/100 WBC (Bld) 0.1 % Normal 0.0-6.0 [facility] Comment on above: Performed By: #### G FR, CBC, ANEU, ADIFF, MG, BMP, HFP #### [address] [address] Lymphocyte, Absolute 0.6 10 3/mcL Low 0.9-4.3 [facility] Comment on above: Performed By: #### G FR, CBC, ANEU, ADIFF, MG, BMP, HFP #### [address] [address] Lymphocytes/100 WBC (Bld) 6.1 % Low 20.0-40.0 [facility] Comment on above: Performed By: #### G FR, CBC, ANEU, ADIFF, MG, BMP, HFP #### [address] [address] Monocyte, Absolute 0.7 10 3/mcL Normal 0.1-1.4 [facility] Comment on above: Performed By: #### G FR, CBC, ANEU, ADIFF, MG, BMP, HFP #### [address] [address] Monocytes/100 WBC (Bld) 6.9 % Normal 2.0-13.0 [facility] Comment on above: Performed By: #### G FR, CBC, ANEU, ADIFF, MG, BMP, HFP #### [address] [address] Neutrophils/100 WBC (Bld) 86.9 % High 50.0-75.0 [facility] Comment on above: Performed By: #### G FR, CBC, ANEU, ADIFF, MG, BMP, HFP #### [address] [address] Basophil, Absolute 0.0 10 3/mcL Normal 0.0-0.3 [facility] Comment on above: Performed By: #### G FR, CBC, ANEU, ADIFF, MG, BMP, HFP #### [address] [address] Basophils/100 WBC (Bld) 0.2 % Normal 0.0-2.5 [facility] Comment on above: Performed By: #### G FR, CBC, ANEU, ADIFF, MG, BMP, HFP #### [address] [address] Eosinophil, Absolute 0.0 10 3/mcL Normal 0.0-0.7 [facility] Comment on above: Performed By: #### G FR, CBC, ANEU, ADIFF, MG, BMP, HFP #### [address] [address] Eosinophils/100 WBC (Bld) 0.1 % Normal 0.0-6.0 [facility] Comment on above: Performed By: #### G FR, CBC, ANEU, ADIFF, MG, BMP, HFP #### [address] [address] Lymphocyte, Absolute 0.8 10 3/mcL Low 0.9-4.3 [facility] Comment on above: Performed By: #### G FR, CBC, ANEU, ADIFF, MG, BMP, HFP #### [address] [address] Lymphocytes/100 WBC (Bld) 9.9 % Low 20.0-40.0 [facility] Comment on above: Performed By: #### G FR, CBC, ANEU, ADIFF, MG, BMP, HFP #### [address] [address] Monocyte, Absolute 0.8 10 3/mcL Normal 0.1-1.4 [facility] Comment on above: Performed By: #### G FR, CBC, ANEU, ADIFF, MG, BMP, HFP #### [address] [address] Monocytes/100 WBC (Bld) 9.3 % Normal 2.0-13.0 [facility] Comment on above: Performed By: #### G FR, CBC, ANEU, ADIFF, MG, BMP, HFP #### [address] [address] Neutrophils/100 WBC (Bld) 80.5 % High 50.0-75.0 [facility] Comment on above: Performed By: #### G FR, CBC, ANEU, ADIFF, MG, BMP, HFP #### [address] [address] .GFRon 01-06-2025 Estimated Glomerular Filtration Rate 43 ml/min/1.73sqm Normal [facility] Comment on above: Result Comment: [...] CBC, ANEU, ADIFF, MG, BMP, HFP #### [place] [address] .NEUABSon 01-06-2025 Neutrophil, Absolute 8.4 10 3/mcL High 2.3-8.1 [facility] Comment on above: Performed By: #### G FR, CBC, ANEU, ADIFF, MG, BMP, HFP #### [place] [address] Neutrophil, Absolute 6.7 10 3/mcL Normal 2.3-8.1 [facility] Comment on above: Performed By: #### G FR, CBC, ANEU, ADIFF, MG, BMP, HFP #### [place] [address] BMPon 01-06-2025 BUN/Creatinine Ratio 11.2 ratio Normal 10.0-22.0 [facility] Comment on above: Performed By: #### G FR, CBC, ANEU, ADIFF, MG, BMP, HFP #### [place] [address] Calcium [Mass/Vol] 8.9 mg/dL Normal 8.7-10.4 [facility] Comment on above: Performed By: #### G FR, CBC, ANEU, ADIFF, MG, BMP, HFP #### [address] [address] Chloride [Moles/Vol] 104 mmol/L Normal 98-110 [facility] Comment on above: Performed By: #### G FR, CBC, ANEU, ADIFF, MG, BMP, HFP #### [address] [address] CO2 [Moles/Vol] 25 mmol/L Normal 22-32 [facility] Comment on above: Performed By: #### G FR, CBC, ANEU, ADIFF, MG, BMP, HFP #### [address] [address] Creatinine [Mass/Vol] 1.61 mg/dL High 0.60-1.40 [facility] Comment on above: Result Comment: Test ing performed on [employer] analyzer using enzymatic creatinine methodology. Performed By: #### G FR, CBC, ANEU, ADIFF, MG, BMP, HFP #### [address] [address] Electrolyte Balance 13.0 mEq/L Normal 4.0-15.0 [facility] Comment on above: Performed By: #### G FR, CBC, ANEU, ADIFF, MG, BMP, HFP #### [address] [address] Glucose [Mass/Vol] 131 mg/dL High 82-115 [facility] Comment on above: Performed By: #### G FR, CBC, ANEU, ADIFF, MG, BMP, HFP #### [address] [address] Potassium [Moles/Vol] 3.8 mmol/L Normal 3.5-5.0 [facility] Comment on above: Performed By: #### G FR, CBC, ANEU, ADIFF, MG, BMP, HFP #### [address] [address] Sodium [Moles/Vol] 142 mmol/L Normal 136-145 [facility] Comment on above: Performed By: #### G FR, CBC, ANEU, ADIFF, MG, BMP, HFP #### [place] [address] Urea nitrogen [Mass/Vol] 18.0 mg/dL Normal 8.0-22.0 [facility] Comment on above: Performed By: #### G FR, CBC, ANEU, ADIFF, MG, BMP, HFP #### [place] [id number] CBCon 01-06-2025 Erythrocyte distribution width (RBC) [Ratio] 15.8 % High 11.5-15.5 [facility] Comment on above: Performed By: #### G FR, CBC, ANEU, ADIFF, MG, BMP, HFP #### [place] [address] Hematocrit (Bld) [Volume fraction] 34.0 % Low 40.0-52.0 [facility] Comment on above: Performed By: #### G FR, CBC, ANEU, ADIFF, MG, BMP, HFP #### [place] [address] Hgb 10.9 G/dL Low 13.0-17.5 [facility] Comment on above: Performed By: #### G FR, CBC, ANEU, ADIFF, MG, BMP, HFP #### [place] [address] MCH (RBC) [Entitic mass] 28.4 pg Normal 27.0-33.0 [facility] Comment on above: Performed By: #### G FR, CBC, ANEU, ADIFF, MG, BMP, HFP #### [place] [address] MCHC 32.0 G/dL Normal 32.0-36.0 [facility] Comment on above: Performed By: #### G FR, CBC, ANEU, ADIFF, MG, BMP, HFP #### [place] [address] MCV (RBC) [Entitic vol] 88.8 fL Normal 81.0-100.0 [facility] Comment on above: Performed By: #### G FR, CBC, ANEU, ADIFF, MG, BMP, HFP #### [place] [address] Platelet 188 10 3/mcL Normal 150-450 [facility] Comment on above: Performed By: #### G FR, CBC, ANEU, ADIFF, MG, BMP, HFP #### [place] [address] Platelet mean volume (Bld) [Entitic vol] 11.4 fL High 6.4-10.5 [facility] Comment on above: Performed By: #### G FR, CBC, ANEU, ADIFF, MG, BMP, HFP #### [place] [address] RBC 3.83 10 6/mcL Low 4.50-6.00 [facility] Comment on above: Performed By: #### G FR, CBC, ANEU, ADIFF, MG, BMP, HFP #### [place] [address] WBC 9.7 10 3/mcL Normal 4.5-10.8 [facility] Comment on above: Performed By: #### G FR, CBC, ANEU, ADIFF, MG, BMP, HFP #### [place] [address] Erythrocyte distribution width (RBC) [Ratio] 16.0 % High 11.5-15.5 [facility] Comment on above: Performed By: #### G FR, CBC, ANEU, ADIFF, MG, BMP, HFP #### [place] [address] Hematocrit (Bld) [Volume fraction] 32.6 % Low 40.0-52.0 [facility] Comment on above: Performed By: #### G FR, CBC, ANEU, ADIFF, MG, BMP, HFP #### [place] [address] Hgb 10.7 G/dL Low 13.0-17.5 [facility] Comment on above: Performed By: #### G FR, CBC, ANEU, ADIFF, MG, BMP, HFP #### [place] [address] MCH (RBC) [Entitic mass] 28.9 pg Normal 27.0-33.0 [facility] Comment on above: Performed By: #### G FR, CBC, ANEU, ADIFF, MG, BMP, HFP #### [place] [address] MCHC 32.7 G/dL Normal 32.0-36.0 [facility] Comment on above: Performed By: #### G FR, CBC, ANEU, ADIFF, MG, BMP, HFP #### [place] [address] MCV (RBC) [Entitic vol] 88.3 fL Normal 81.0-100.0 [facility] Comment on above: Performed By: #### G FR, CBC, ANEU, ADIFF, MG, BMP, HFP #### [place] [address] Platelet 167 10 3/mcL Normal 150-450 [facility] Comment on above: Performed By: #### G FR, CBC, ANEU, ADIFF, MG, BMP, HFP #### [place] [address] Platelet mean volume (Bld) [Entitic vol] 11.1 fL High 6.4-10.5 [facility] Comment on above: Performed By: #### G FR, CBC, ANEU, ADIFF, MG, BMP, HFP #### [place] [address] RBC 3.69 10 6/mcL Low 4.50-6.00 [facility] Comment on above: Performed By: #### G FR, CBC, ANEU, ADIFF, MG, BMP, HFP #### [place] [address] WBC 8.3 10 3/mcL Normal 4.5-10.8 [facility] Comment on above: Performed By: #### G FR, CBC, ANEU, ADIFF, MG, BMP, HFP #### [place] [address] DIMERon 01-06-2025 D-Dimer 635 ng/mL D-DU High 0-230 [facility] Comment on above: Result Comment: [...] (PE). Performed By: #### D GLENDY #### [place] [address] Ron 01-06-2025 Ferritin [Mass/Vol] 488.0 ng/mL High 26.0-388.0 [facility] Comment on above: Performed By: #### G FR, CBC, ANEU, ADIFF, MG, BMP, HFP #### [place] [address] FESon 01-06-2025 Iron [Mass/Vol] 17 ug/dL Low 65-175 [facility] Comment on above: Performed By: #### G FR, CBC, ANEU, ADIFF, MG, BMP, HFP #### [place] [address] Iron Sat 8 % Normal [facility] Comment on above: Performed By: #### G FR, CBC, ANEU, ADIFF, MG, BMP, HFP #### [place] [address] TIBC 226 mcg/dL Low 250-500 [facility] Comment on above: Performed By: #### G FR, CBC, ANEU, ADIFF, MG, BMP, HFP #### [place] [address] HFPon 01-06-2025 Bili Indirect 1.2 mg/dL Normal 0.1-10.0 [facility] Comment on above: Performed By: #### G FR, CBC, ANEU, ADIFF, MG, BMP, HFP #### [place] [address] Albumin Level 2.8 G/dL Low 3.2-4.8 [facility] Comment on above: Performed By: #### G FR, CBC, ANEU, ADIFF, MG, BMP, HFP #### [place] [address] Albumin/Globulin [Mass ratio] 0.8 {ratio} Low 0.9-1.6 [facility] Comment on above: Performed By: #### G FR, CBC, ANEU, ADIFF, MG, BMP, HFP #### [place] [address] ALP [Catalytic activity/Vol] 109 U/L Normal 38-126 [facility] Comment on above: Performed By: #### G FR, CBC, ANEU, ADIFF, MG, BMP, HFP #### [place] [address] ALT [Catalytic activity/Vol] 150 U/L High 12-55 [facility] Comment on above: Performed By: #### G FR, CBC, ANEU, ADIFF, MG, BMP, HFP #### [place] [address] AST [Catalytic activity/Vol] 146 U/L High 8-34 [facility] Comment on above: Performed By: #### G FR, CBC, ANEU, ADIFF, MG, BMP, HFP #### [place] [address] Bili Direct 0.4 mg/dL Normal 0.0-0.4 [facility] Comment on above: Result Comment: Use of this assay is not recommended for patients undergoing treatment with eltrombopag due to the potential for falsely elevated results. Performed By: #### G FR, CBC, ANEU, ADIFF, MG, BMP, HFP #### [place] [address] Bili Total 1.60 mg/dL High 0.20-1.20 [facility] Comment on above: Result Comment: Use of this assay is not recommended for patients undergoing treatment with eltrombopag due to the potential for falsely elevated results. Performed By: #### G FR, CBC, ANEU, ADIFF, MG, BMP, HFP #### [facility] [address] [place], [place] [id number] Globulin 3.6 G/dL Normal 2.5-4.2 [facility] Comment on above: Performed By: #### G FR, CBC, ANEU, ADIFF, MG, BMP, HFP #### [facility] [address] [place], [place] [id number] Total Protein 6.4 G/dL Normal 5.7-8.2 [facility] Comment on above: Performed By: #### G FR, CBC, ANEU, ADIFF, MG, BMP, HFP #### [facility] [address] [place] [address] LABORATORYOrdered By: SYSTEM SYSTEM on 01-06-2025 D-Dimer 635 ng/mL D-DU High 0 - 230 ng/mL D-DU AH [employer] SS Comment on above: Result Comment: [...] 2660 ng/L High 0 - 54 ng/L ADM SS Comment on above: Interpretive Data: High Sensitive Troponin I Reference Ranges: Female: 0-34 ng/L Male: 0-54 ng/L Testing performed on [employer] IM analyzer using direct chemiluminescent technology. MGon 01-06-2025 Magnesium [Mass/Vol] 2.3 mg/dL Normal 1.6-2.4 [facility] Comment on above: Performed By: #### G FR, CBC, ANEU, ADIFF, MG, BMP, HFP #### [place] [address] PBNPon 01-06-2025 Natriuretic peptide B (Bld) [Mass/Vol] 5578 pg/mL High 0-1800 [facility] Comment on above: Performed By: #### D GLENDY #### [place] [address] TROPHSon 01-06-2025 High Sensitivity Troponin I 2660 ng/L High 0-54 [facility] Comment on above: Result Comment: High Sensitive Troponin I Reference Ranges: Female: 0-34 ng/L Male: 0-54 ng/L Testing performed on [employer] IM analyzer using direct chemiluminescent technology. Performed By: #### D GLENDY #### [place] [address] XR CHEST 1 VIEWon 01-06-2025 XR CHEST [...] 01/06/2025 11:26:21 AM Ordering Provider: ARMANDO BAÑUELOS Normal [facility] .Auto Diffon 01-05-2025 Basophil, Absolute 0.0 10 3/mcL Normal 0.0-0.3 [facility] Comment on above: Performed By: #### G FR, CBC, ANEU, ADIFF, MG, BMP, HFP #### [address] [address] Basophils/100 WBC (Bld) 0.3 % Normal 0.0-2.5 [facility] Comment on above: Performed By: #### G FR, CBC, ANEU, ADIFF, MG, BMP, HFP #### [address] [address] Eosinophil, Absolute 0.1 10 3/mcL Normal 0.0-0.7 [facility] Comment on above: Performed By: #### G FR, CBC, ANEU, ADIFF, MG, BMP, HFP #### [address] [address] Eosinophils/100 WBC (Bld) 0.7 % Normal 0.0-6.0 [facility] Comment on above: Performed By: #### G FR, CBC, ANEU, ADIFF, MG, BMP, HFP #### [address] [address] Lymphocyte, Absolute 0.7 10 3/mcL Low 0.9-4.3 [facility] Comment on above: Performed By: #### G FR, CBC, ANEU, ADIFF, MG, BMP, HFP #### [address] [address] Lymphocytes/100 WBC (Bld) 10.1 % Low 20.0-40.0 [facility] Comment on above: Performed By: #### G FR, CBC, ANEU, ADIFF, MG, BMP, HFP #### [place] [address] Monocyte, Absolute 0.8 10 3/mcL Normal 0.1-1.4 [facility] Comment on above: Performed By: #### G FR, CBC, ANEU, ADIFF, MG, BMP, HFP #### [place] [id number] Monocytes/100 WBC (Bld) 11.0 % Normal 2.0-13.0 [facility] Comment on above: Performed By: #### G FR, CBC, ANEU, ADIFF, MG, BMP, HFP #### [place] [id number] Neutrophils/100 WBC (Bld) 77.9 % High 50.0-75.0 [facility] Comment on above: Performed By: #### G FR, CBC, ANEU, ADIFF, MG, BMP, HFP #### [place] [address] .GFRon 01-05-2025 Estimated Glomerular Filtration Rate 48 ml/min/1.73sqm Normal [facility] Comment on above: Result Comment: [...] CBC, ANEU, ADIFF, MG, BMP, HFP #### [place] [address] .NEUABSon 01-05-2025 Neutrophil, Absolute 5.5 10 3/mcL Normal 2.3-8.1 [facility] Comment on above: Performed By: #### G FR, CBC, ANEU, ADIFF, MG, BMP, HFP #### [address] [address] BMPon 01-05-2025 BUN/Creatinine Ratio 10.2 ratio Normal 10.0-22.0 [facility] Comment on above: Performed By: #### G FR, CBC, ANEU, ADIFF, MG, BMP, HFP #### [place] [id number] Calcium [Mass/Vol] 8.8 mg/dL Normal 8.7-10.4 [facility] Comment on above: Performed By: #### G FR, CBC, ANEU, ADIFF, MG, BMP, HFP #### [place] [address] Chloride [Moles/Vol] 107 mmol/L Normal 98-110 [facility] Comment on above: Performed By: #### G FR, CBC, ANEU, ADIFF, MG, BMP, HFP #### [place] [id number] CO2 [Moles/Vol] 20 mmol/L Low 22-32 [facility] Comment on above: Performed By: #### G FR, CBC, ANEU, ADIFF, MG, BMP, HFP #### [place] [id number] Creatinine [Mass/Vol] 1.47 mg/dL High 0.60-1.40 [facility] Comment on above: Result Comment: Test ing performed on [employer] analyzer using enzymatic creatinine methodology. Performed By: #### G FR, CBC, ANEU, ADIFF, MG, BMP, HFP #### [place] [id number] Electrolyte Balance 14.0 mEq/L Normal 4.0-15.0 [facility] Comment on above: Performed By: #### G FR, CBC, ANEU, ADIFF, MG, BMP, HFP #### [place] [id number] Glucose [Mass/Vol] 175 mg/dL High 82-115 [facility] Comment on above: Performed By: #### G FR, CBC, ANEU, ADIFF, MG, BMP, HFP #### [place] [address] Potassium [Moles/Vol] 4.2 mmol/L Normal 3.5-5.0 [facility] Comment on above: Performed By: #### G FR, CBC, ANEU, ADIFF, MG, BMP, HFP #### [place] [id number] Sodium [Moles/Vol] 141 mmol/L Normal 136-145 [facility] Comment on above: Performed By: #### G FR, CBC, ANEU, ADIFF, MG, BMP, HFP #### [place] [address] Urea nitrogen [Mass/Vol] 15.0 mg/dL Normal 8.0-22.0 [facility] Comment on above: Performed By: #### G FR, CBC, ANEU, ADIFF, MG, BMP, HFP #### [place] [address] CBCon 01-05-2025 Erythrocyte distribution width (RBC) [Ratio] 15.4 % Normal 11.5-15.5 [facility] Comment on above: Performed By: #### G FR, CBC, ANEU, ADIFF, MG, BMP, HFP #### [place] [address] Hematocrit (Bld) [Volume fraction] 32.1 % Low 40.0-52.0 [facility] Comment on above: Performed By: #### G FR, CBC, ANEU, ADIFF, MG, BMP, HFP #### [place] [address] Hgb 10.5 G/dL Low 13.0-17.5 [facility] Comment on above: Performed By: #### G FR, CBC, ANEU, ADIFF, MG, BMP, HFP #### [place] [address] MCH (RBC) [Entitic mass] 29.0 pg Normal 27.0-33.0 [facility] Comment on above: Performed By: #### G FR, CBC, ANEU, ADIFF, MG, BMP, HFP #### [place] [address] MCHC 32.7 G/dL Normal 32.0-36.0 [facility] Comment on above: Performed By: #### G FR, CBC, ANEU, ADIFF, MG, BMP, HFP #### [place] [address] MCV (RBC) [Entitic vol] 88.7 fL Normal 81.0-100.0 [facility] Comment on above: Performed By: #### G FR, CBC, ANEU, ADIFF, MG, BMP, HFP #### [place] [address] Platelet 171 10 3/mcL Normal 150-450 [facility] Comment on above: Performed By: #### G FR, CBC, ANEU, ADIFF, MG, BMP, HFP #### [place] [address] Platelet mean volume (Bld) [Entitic vol] 11.1 fL High 6.4-10.5 [facility] Comment on above: Performed By: #### G FR, CBC, ANEU, ADIFF, MG, BMP, HFP #### [place] [address] RBC 3.62 10 6/mcL Low 4.50-6.00 [facility] Comment on above: Performed By: #### G FR, CBC, ANEU, ADIFF, MG, BMP, HFP #### [place] [address] WBC 7.1 10 3/mcL Normal 4.5-10.8 [facility] Comment on above: Performed By: #### G FR, CBC, ANEU, ADIFF, MG, BMP, HFP #### [place] [address] HFPon 01-05-2025 Bili Indirect 1.2 mg/dL Normal 0.1-10.0 [facility] Comment on above: Performed By: #### G FR, CBC, ANEU, ADIFF, MG, BMP, HFP #### [place] [address] Albumin Level 2.8 G/dL Low 3.2-4.8 [facility] Comment on above: Performed By: #### G FR, CBC, ANEU, ADIFF, MG, BMP, HFP #### [place] [address] Albumin/Globulin [Mass ratio] 0.8 {ratio} Low 0.9-1.6 [facility] Comment on above: Performed By: #### G FR, CBC, ANEU, ADIFF, MG, BMP, HFP #### [place] [address] ALP [Catalytic activity/Vol] 104 U/L Normal 38-126 [facility] Comment on above: Performed By: #### G FR, CBC, ANEU, ADIFF, MG, BMP, HFP #### [place] [address] ALT [Catalytic activity/Vol] 25 U/L Normal 12-55 [facility] Comment on above: Performed By: #### G FR, CBC, ANEU, ADIFF, MG, BMP, HFP #### [place] [address] AST [Catalytic activity/Vol] 41 U/L High 8-34 [facility] Comment on above: Performed By: #### G FR, CBC, ANEU, ADIFF, MG, BMP, HFP #### [place] [id number] Bili Direct 0.5 mg/dL High 0.0-0.4 [facility] Comment on above: Result Comment: Use of this assay is not recommended for patients undergoing treatment with eltrombopag due to the potential for falsely elevated results. Performed By: #### G FR, CBC, ANEU, ADIFF, MG, BMP, HFP #### [place] [address] Bili Total 1.70 mg/dL High 0.20-1.20 [facility] Comment on above: Result Comment: Use of this assay is not recommended for patients undergoing treatment with eltrombopag due to the potential for falsely elevated results. Performed By: #### G FR, CBC, ANEU, ADIFF, MG, BMP, HFP #### [place] [address] Globulin 3.5 G/dL Normal 2.5-4.2 [facility] Comment on above: Performed By: #### G FR, CBC, ANEU, ADIFF, MG, BMP, HFP #### [place] [address] Total Protein 6.3 G/dL Normal 5.7-8.2 [facility] Comment on above: Performed By: #### G FR, CBC, ANEU, ADIFF, MG, BMP, HFP #### [place] [address] LABORATORYOrdered By: SYSTEM SYSTEM on 01-05-2025 Troponin I.cardiac DL <= 0.01 ng/mL [Mass/Vol] 3734 ng/L High 0 - 54 ng/L AH ADM SS Comment on above: Interpretive Data: High Sensitive Troponin I Reference Ranges: Female: 0-34 ng/L Male: 0-54 ng/L Testing performed on [employer] IM analyzer using direct chemiluminescent technology. MGon 01-05-2025 Magnesium [Mass/Vol] 2.0 mg/dL Normal 1.6-2.4 [facility] Comment on above: Performed By: #### G FR, CBC, ANEU, ADIFF, MG, BMP, HFP #### [place] [address] TROPHSon 01-05-2025 High Sensitivity Troponin I 3734 ng/L High 0-54 [facility] Comment on above: Result Comment: High Sensitive Troponin I Reference Ranges: Female: 0-34 ng/L Male: 0-54 ng/L Testing performed on [employer] IM analyzer using direct chemiluminescent technology. Performed By: #### G FR, CBC, ANEU, ADIFF, MG, BMP, HFP #### [place] [address] XR CHEST 1 VIEWon 01-05-2025 XR CHEST [...] Date: 01/05/2025 2:09:48 PM Ordering Provider: COREY Nickerson [facility] .Auto Diffon 01-04-2025 Basophil, Absolute 0.0 10 3/mcL Normal 0.0-0.3 [facility] Comment on above: Performed By: #### G FR, CBC, ANEU, ADIFF, MG, BMP, HFP #### [address] [address] Basophils/100 WBC (Bld) 0.4 % Normal 0.0-2.5 [facility] Comment on above: Performed By: #### G FR, CBC, ANEU, ADIFF, MG, BMP, HFP #### [address] [address] Eosinophil, Absolute 0.1 10 3/mcL Normal 0.0-0.7 [facility] Comment on above: Performed By: #### G FR, CBC, ANEU, ADIFF, MG, BMP, HFP #### [address] [address] Eosinophils/100 WBC (Bld) 2.5 % Normal 0.0-6.0 [facility] Comment on above: Performed By: #### G FR, CBC, ANEU, ADIFF, MG, BMP, HFP #### [address] [address] Lymphocyte, Absolute 0.8 10 3/mcL Low 0.9-4.3 [facility] Comment on above: Performed By: #### G FR, CBC, ANEU, ADIFF, MG, BMP, HFP #### [address] [address] Lymphocytes/100 WBC (Bld) 15.8 % Low 20.0-40.0 [facility] Comment on above: Performed By: #### G FR, CBC, ANEU, ADIFF, MG, BMP, HFP #### [address] [address] Monocyte, Absolute 0.6 10 3/mcL Normal 0.1-1.4 [facility] Comment on above: Performed By: #### G FR, CBC, ANEU, ADIFF, MG, BMP, HFP #### [address] [address] Monocytes/100 WBC (Bld) 11.6 % Normal 2.0-13.0 [facility] Comment on above: Performed By: #### G FR, CBC, ANEU, ADIFF, MG, BMP, HFP #### [address] [address] Neutrophils/100 WBC (Bld) 69.7 % Normal 50.0-75.0 [facility] Comment on above: Performed By: #### G FR, CBC, ANEU, ADIFF, MG, BMP, HFP #### [place] [id number] .GFRon 01-04-2025 Estimated Glomerular Filtration Rate 54 ml/min/1.73sqm Normal [facility] Comment on above: Result Comment: [...] CBC, ANEU, ADIFF, MG, BMP, HFP #### [address] [id number] .NEUABSon 01-04-2025 Neutrophil, Absolute 3.6 10 3/mcL Normal 2.3-8.1 [facility] Comment on above: Performed By: #### G FR, CBC, ANEU, ADIFF, MG, BMP, HFP #### [place] [id number] A1Con 01-04-2025 Glucose [Mass/Vol] 171 mg/dL Normal [facility] Comment on above: Result Comment: Kala mated Average Glucose calculated by equation ((28.7xA1C)-46.7) Estimated average glucose (eAG) is a calculated value from Hemoglobin A1C and is community representative of the average blood glucose level in the last 2-3 month period. Normal range: less than 114 mg/dL Performed By: #### G FR, CBC, ANEU, ADIFF, MG, BMP, HFP #### [place] [address] HbA1c (Bld) [Mass fraction] 7.6 % High 4.0-6.0 [facility] Comment on above: Performed By: #### G FR, CBC, ANEU, ADIFF, MG, BMP, HFP #### [place] [id number] APTTon 01-04-2025 aPTT Coag (Bld) [Time] 33.2 s Normal 25.0-35.0 [facility] Comment on above: Result Comment: For Heparin anticoagulation therapy, the recommended therapeutic range is: 54-77 seconds (APTT Correlation with Anti-Xa therapeutic range of 0.3-0.7 units/ml). PLEASE REFERENCE THE PHARMACY PROTOCOL FOR DOSING. Performed By: #### G FR, CBC, ANEU, ADIFF, MG, BMP, HFP #### [place] [id number] [facility] 01-04-2025 BUN/Creatinine Ratio 9.7 ratio Low 10.0-22.0 [facility] Comment on above: Performed By: #### G FR, CBC, ANEU, ADIFF, MG, BMP, HFP #### [place] [address] Calcium [Mass/Vol] 8.4 mg/dL Low 8.7-10.4 [facility] Comment on above: Performed By: #### G FR, CBC, ANEU, ADIFF, MG, BMP, HFP #### [address] [address] Chloride [Moles/Vol] 109 mmol/L Normal 98-110 [facility] Comment on above: Performed By: #### G FR, CBC, ANEU, ADIFF, MG, BMP, HFP #### [address] [address] CO2 [Moles/Vol] 22 mmol/L Normal 22-32 [facility] Comment on above: Performed By: #### G FR, CBC, ANEU, ADIFF, MG, BMP, HFP #### [address] [address] Creatinine [Mass/Vol] 1.34 mg/dL Normal 0.60-1.40 [facility] Comment on above: Result Comment: Test ing performed on Rival[employer] analyzer using enzymatic creatinine methodology. Performed By: #### G FR, CBC, ANEU, ADIFF, MG, BMP, HFP #### [place] [address] Electrolyte Balance 11.0 mEq/L Normal 4.0-15.0 [facility] Comment on above: Performed By: #### G FR, CBC, ANEU, ADIFF, MG, BMP, HFP #### [place] [address] Glucose [Mass/Vol] 131 mg/dL High 82-115 [facility] Comment on above: Performed By: #### G FR, CBC, ANEU, ADIFF, MG, BMP, HFP #### [place] [id number] Potassium [Moles/Vol] 3.7 mmol/L Normal 3.5-5.0 [facility] Comment on above: Performed By: #### G FR, CBC, ANEU, ADIFF, MG, BMP, HFP #### [place] [id number] Sodium [Moles/Vol] 142 mmol/L Normal 136-145 [facility] Comment on above: Performed By: #### G FR, CBC, ANEU, ADIFF, MG, BMP, HFP #### [place] [id number] Urea nitrogen [Mass/Vol] 13.0 mg/dL Normal 8.0-22.0 [facility] Comment on above: Performed By: #### G FR, CBC, ANEU, ADIFF, MG, BMP, HFP #### [place] [address] CBCon 01-04-2025 Erythrocyte distribution width (RBC) [Ratio] 15.1 % Normal 11.5-15.5 [facility] Comment on above: Performed By: #### G FR, CBC, ANEU, ADIFF, MG, BMP, HFP #### [place] [address] Hematocrit (Bld) [Volume fraction] 30.1 % Low 40.0-52.0 [facility] Comment on above: Performed By: #### G FR, CBC, ANEU, ADIFF, MG, BMP, HFP #### [place] [address] Hgb 9.8 G/dL Low 13.0-17.5 [facility] Comment on above: Performed By: #### G FR, CBC, ANEU, ADIFF, MG, BMP, HFP #### [place] [address] MCH (RBC) [Entitic mass] 28.5 pg Normal 27.0-33.0 [facility] Comment on above: Performed By: #### G FR, CBC, ANEU, ADIFF, MG, BMP, HFP #### [place] [address] MCHC 32.5 G/dL Normal 32.0-36.0 [facility] Comment on above: Performed By: #### G FR, CBC, ANEU, ADIFF, MG, BMP, HFP #### [place] [address] MCV (RBC) [Entitic vol] 87.6 fL Normal 81.0-100.0 [facility] Comment on above: Performed By: #### G FR, CBC, ANEU, ADIFF, MG, BMP, HFP #### [place] [address] Platelet 132 10 3/mcL Low 150-450 [facility] Comment on above: Performed By: #### G FR, CBC, ANEU, ADIFF, MG, BMP, HFP #### [facility] [address] [place] [address] Platelet mean volume (Bld) [Entitic vol] 11.1 fL High 6.4-10.5 [facility] Comment on above: Performed By: #### G FR, CBC, ANEU, ADIFF, MG, BMP, HFP #### [facility] [address] [place] [address] RBC 3.43 10 6/mcL Low 4.50-6.00 [facility] Comment on above: Performed By: #### G FR, CBC, ANEU, ADIFF, MG, BMP, HFP #### [facility] [address] [place] [address] WBC 5.2 10 3/mcL Normal 4.5-10.8 [facility] Comment on above: Performed By: #### G FR, CBC, ANEU, ADIFF, MG, BMP, HFP #### [facility] [address] [place] [address] DIMERon 01-04-2025 D-Dimer <200 Normal 0-230 [facility] Comment on above: Result Comment: [...] 01-04-2025 Bili Indirect 1.0 mg/dL Normal 0.1-10.0 [facility] Comment on above: Performed By: #### G FR, CBC, ANEU, ADIFF, MG, BMP, HFP #### [place] [address] Albumin Level 2.7 G/dL Low 3.2-4.8 [facility] Comment on above: Performed By: #### G FR, CBC, ANEU, ADIFF, MG, BMP, HFP #### [place] [address] Albumin/Globulin [Mass ratio] 0.9 {ratio} Normal 0.9-1.6 [facility] Comment on above: Performed By: #### G FR, CBC, ANEU, ADIFF, MG, BMP, HFP #### [place] [address] ALP [Catalytic activity/Vol] 97 U/L Normal 38-126 [facility] Comment on above: Performed By: #### G FR, CBC, ANEU, ADIFF, MG, BMP, HFP #### [place] [address] ALT [Catalytic activity/Vol] 17 U/L Normal 12-55 [facility] Comment on above: Performed By: #### G FR, CBC, ANEU, ADIFF, MG, BMP, HFP #### [place] [address] AST [Catalytic activity/Vol] 42 U/L High 8-34 [facility] Comment on above: Performed By: #### G FR, CBC, ANEU, ADIFF, MG, BMP, HFP #### [place] [address] Bili Direct 0.4 mg/dL Normal 0.0-0.4 [facility] Comment on above: Result Comment: Use of this assay is not recommended for patients undergoing treatment with eltrombopag due to the potential for falsely elevated results. Performed By: #### G FR, CBC, ANEU, ADIFF, MG, BMP, HFP #### [place] [address] Bili Total 1.40 mg/dL High 0.20-1.20 [facility] Comment on above: Result Comment: Use of this assay is not recommended for patients undergoing treatment with eltrombopag due to the potential for falsely elevated results. Performed By: #### G FR, CBC, ANEU, ADIFF, MG, BMP, HFP #### [address] [address] Globulin 3.1 G/dL Normal 2.5-4.2 [facility] Comment on above: Performed By: #### G FR, CBC, ANEU, ADIFF, MG, BMP, HFP #### [address] [address] Total Protein 5.8 G/dL Normal 5.7-8.2 [facility] Comment on above: Performed By: #### G FR, CBC, ANEU, ADIFF, MG, BMP, HFP #### [address] [address] LABORATORYOrdered By: Jose Mariscal on 01-04-2025 D-Dimer [...] s Normal 25.0 - 35.0 seconds [employer] SS Comment on above: Interpretive Data: F or Heparin anticoagulation therapy, the recommended therapeutic range is: 54-77 seconds (APTT Correlation with Anti-Xa therapeutic range of 0.3-0.7 units/ml). PLEASE REFERENCE THE PHARMACY PROTOCOL FOR DOSING. Glucose [Mass/Vol] 171 mg/dL Invalid Interpretation Code Auto Chem SS Comment on above: Interpretive Data: E stimated average glucose (eAG) is a calculated value from Hemoglobin A1C and is community representative of the average blood glucose level in the last 2-3 month period. Normal range: less than 114 mg/dL HbA1c (Bld) [Mass fraction] 7.6 % High 4.0 - 6.0 % Auto Chem TSH Qn 2.347 mIU/mL Normal 0.550 - 4.780 mIU/mL ADM LABORATORYOrdered By: Devon Masrh on 01-04-2025 Cholesterol [Mass/Vol] 131 mg/dL Normal 50 - 199 mg/dL [facility] Comment on above: Interpretive Data: C holesterol Reference Interval: Less than 200 Desirable 200-239 Borderline high risk 240 and above High risk Cholesterol in HDL [Mass/Vol] 27 mg/dL Low 40 - 59 mg/dL [facility] Cholesterol in LDL [Mass/Vol] 60 mg/dL Normal 0 - 129 mg/dL [facility] Triglyceride [Mass/Vol] 219 mg/dL High 3 - 149 mg/dL [facility] LIPIDon 01-04-2025 Cholesterol [Mass/Vol] 131 mg/dL Normal 50-199 [facility] Comment on above: Result Comment: Chol esterol Reference Interval: Less than 200 Desirable 200-239 Borderline high risk 240 and above High risk Performed By: #### G FR, CBC, ANEU, ADIFF, MG, BMP, HFP #### [address] [address] Cholesterol in HDL [Mass/Vol] 27 mg/dL Low 40-59 [facility] Comment on above: Performed By: #### G FR, CBC, ANEU, ADIFF, MG, BMP, HFP #### [address] [address] Cholesterol in LDL [Mass/Vol] 60 mg/dL Normal 0-129 [facility] Comment on above: Performed By: #### G FR, CBC, ANEU, ADIFF, MG, BMP, HFP #### [address] [address] Triglyceride [Mass/Vol] 219 mg/dL High 3-149 [facility] Comment on above: Performed By: #### G FR, CBC, ANEU, ADIFF, MG, BMP, HFP #### [place] [id number] [place] [address] MGon 01-04-2025 Magnesium [Mass/Vol] 2.0 mg/dL Normal 1.6-2.4 [facility] Comment on above: Performed By: #### G FR, CBC, ANEU, ADIFF, MG, BMP, HFP #### [facility] [address] [place] [address] TROPHSon 01-04-2025 High Sensitivity Troponin I 6698 ng/L High 0-54 [facility] Comment on above: Result Comment: High Sensitive Troponin I Reference Ranges: Female: 0-34 ng/L Male: 0-54 ng/L Testing performed on [employer] analyzer using direct chemiluminescent technology. Performed By: #### G FR, CBC, ANEU, ADIFF, MG, BMP, HFP #### [address] [address] TSHRon 01-04-2025 TSH 2.347 mIU/mL Normal 0.550-4.78 0 [facility] Comment on above: Performed By: #### G FR, CBC, ANEU, ADIFF, MG, BMP, HFP #### [address] [address] XR CHEST 1 VIEWon 01-04-2025 XR CHEST [...] 01/04/2025 5:39:33 AM Ordering Provider: EVA Nickerson [facility] .Auto Diffon 01-03-2025 Basophil, Absolute 0.0 10 3/mcL Normal 0.0-0.3 [facility] Comment on above: Performed By: #### G FR, CBC, ANEU, ADIFF, MG, BMP, HFP #### [address] [address] Basophils/100 WBC (Bld) 0.3 % Normal 0.0-2.5 [facility] Comment on above: Performed By: #### G FR, CBC, ANEU, ADIFF, MG, BMP, HFP #### [address] [address] Eosinophil, Absolute 0.1 10 3/mcL Normal 0.0-0.7 [facility] Comment on above: Performed By: #### G FR, CBC, ANEU, ADIFF, MG, BMP, HFP #### [address] [address] Eosinophils/100 WBC (Bld) 2.0 % Normal 0.0-6.0 [facility] Comment on above: Performed By: #### G FR, CBC, ANEU, ADIFF, MG, BMP, HFP #### [address] [address] Lymphocyte, Absolute 0.8 10 3/mcL Low 0.9-4.3 [facility] Comment on above: Performed By: #### G FR, CBC, ANEU, ADIFF, MG, BMP, HFP #### [address] [address] Lymphocytes/100 WBC (Bld) 14.5 % Low 20.0-40.0 [facility] Comment on above: Performed By: #### G FR, CBC, ANEU, ADIFF, MG, BMP, HFP #### [address] [address] Monocyte, Absolute 0.7 10 3/mcL Normal 0.1-1.4 [facility] Comment on above: Performed By: #### G FR, CBC, ANEU, ADIFF, MG, BMP, HFP #### [address] [address] Monocytes/100 WBC (Bld) 11.4 % Normal 2.0-13.0 [facility] Comment on above: Performed By: #### G FR, CBC, ANEU, ADIFF, MG, BMP, HFP #### [address] [address] Neutrophils/100 WBC (Bld) 71.8 % Normal 50.0-75.0 [facility] Comment on above: Performed By: #### G FR, CBC, ANEU, ADIFF, MG, BMP, HFP #### [address] [address] Basophil, Absolute 0.0 10 3/mcL Normal 0.0-0.3 [facility] Comment on above: Performed By: #### G FR, CBC, ANEU, ADIFF, MG, BMP, HFP #### [address] [address] Basophils/100 WBC (Bld) 0.3 % Normal 0.0-2.5 [facility] Comment on above: Performed By: #### G FR, CBC, ANEU, ADIFF, MG, BMP, HFP #### [address] [address] Eosinophil, Absolute 0.1 10 3/mcL Normal 0.0-0.7 [facility] Comment on above: Performed By: #### G FR, CBC, ANEU, ADIFF, MG, BMP, HFP #### [address] [address] Eosinophils/100 WBC (Bld) 1.9 % Normal 0.0-6.0 [facility] Comment on above: Performed By: #### G FR, CBC, ANEU, ADIFF, MG, BMP, HFP #### [address] [address] Lymphocyte, Absolute 0.9 10 3/mcL Normal 0.9-4.3 [facility] Comment on above: Performed By: #### G FR, CBC, ANEU, ADIFF, MG, BMP, HFP #### [address] [address] Lymphocytes/100 WBC (Bld) 13.9 % Low 20.0-40.0 [facility] Comment on above: Performed By: #### G FR, CBC, ANEU, ADIFF, MG, BMP, HFP #### [address] [address] Monocyte, Absolute 0.8 10 3/mcL Normal 0.1-1.4 [facility] Comment on above: Performed By: #### G FR, CBC, ANEU, ADIFF, MG, BMP, HFP #### [address] [address] Monocytes/100 WBC (Bld) 11.6 % Normal 2.0-13.0 [facility] Comment on above: Performed By: #### G FR, CBC, ANEU, ADIFF, MG, BMP, HFP #### [address] [address] Neutrophils/100 WBC (Bld) 72.3 % Normal 50.0-75.0 [facility] Comment on above: Performed By: #### G FR, CBC, ANEU, ADIFF, MG, BMP, HFP #### [address] [address] .GFRon 01-03-2025 Estimated Glomerular Filtration Rate 51 ml/min/1.73sqm Normal [facility] Comment on above: Result Comment: [...] CBC, ANEU, ADIFF, MG, BMP, HFP #### [place] [address] Estimated Glomerular Filtration Rate 49 ml/min/1.73sqm Normal [facility] Comment on above: Result Comment: [...] CBC, ANEU, ADIFF, MG, BMP, HFP #### [place] [address] .NEUABSon 01-03-2025 Neutrophil, Absolute 4.1 10 3/mcL Normal 2.3-8.1 [facility] Comment on above: Performed By: #### G FR, CBC, ANEU, ADIFF, MG, BMP, HFP #### [place] [address] Neutrophil, Absolute 4.8 10 3/mcL Normal 2.3-8.1 [facility] Comment on above: Performed By: #### G FR, CBC, ANEU, ADIFF, MG, BMP, HFP #### [place] [address] 12 Lead EKGon 01-03-2025 12 Lead EKG Normal [facility] APTTon 01-03-2025 aPTT Coag (Bld) [Time] 30.4 s Normal 25.0-35.0 [facility] Comment on above: Result Comment: For Heparin anticoagulation therapy, the recommended therapeutic range is: 54-77 seconds (APTT Correlation with Anti-Xa therapeutic range of 0.3-0.7 units/ml). PLEASE REFERENCE THE PHARMACY PROTOCOL FOR DOSING. Performed By: #### G FR, CBC, ANEU, ADIFF, MG, BMP, HFP #### [address] [address] BMPon 01-03-2025 BUN/Creatinine Ratio 10.0 ratio Normal 10.0-22.0 [facility] Comment on above: Performed By: #### G FR, CBC, ANEU, ADIFF, MG, BMP, HFP #### [address] [address] Calcium [Mass/Vol] 9.1 mg/dL Normal 8.7-10.4 [facility] Comment on above: Performed By: #### G FR, CBC, ANEU, ADIFF, MG, BMP, HFP #### [address] [address] Chloride [Moles/Vol] 109 mmol/L Normal 98-110 [facility] Comment on above: Performed By: #### G FR, CBC, ANEU, ADIFF, MG, BMP, HFP #### [place] [id number] CO2 [Moles/Vol] 23 mmol/L Normal 22-32 [facility] Comment on above: Performed By: #### G FR, CBC, ANEU, ADIFF, MG, BMP, HFP #### [address] [address] Creatinine [Mass/Vol] 1.40 mg/dL Normal 0.60-1.40 [facility] Comment on above: Result Comment: Test ing performed on [employer] analyzer using enzymatic creatinine methodology. Performed By: #### G FR, CBC, ANEU, ADIFF, MG, BMP, HFP #### [address] [address] Electrolyte Balance 9.0 mEq/L Normal 4.0-15.0 [facility] Comment on above: Performed By: #### G FR, CBC, ANEU, ADIFF, MG, BMP, HFP #### [address] [address] Glucose [Mass/Vol] 118 mg/dL High 82-115 [facility] Comment on above: Performed By: #### G FR, CBC, ANEU, ADIFF, MG, BMP, HFP #### [facility] [address] [place] [address] Potassium [Moles/Vol] 3.7 mmol/L Normal 3.5-5.0 [facility] Comment on above: Performed By: #### G FR, CBC, ANEU, ADIFF, MG, BMP, HFP #### [facility] [address] [place] [address] Sodium [Moles/Vol] 141 mmol/L Normal 136-145 [facility] Comment on above: Performed By: #### G FR, CBC, ANEU, ADIFF, MG, BMP, HFP #### [place] [address] [place] [address] Urea nitrogen [Mass/Vol] 14.0 mg/dL Normal 8.0-22.0 [facility] Comment on above: Performed By: #### G FR, CBC, ANEU, ADIFF, MG, BMP, HFP #### [address] [address] Basic Metabolic Profile (BMP )on 01-03-2025 BUN/CRE 10.4 RATIO Normal 10-20 [facility] Comment on above: Performed By: #### L 100.0100, L500.2500, L501.4021 ####[facility] [id number] [place], [address] Calcium [Mass/Vol] 8.8 mg/dL Normal 7.6-11.0 [facility] Comment on above: Performed By: #### L 100.0100, L500.2500, L501.4021 ####[facility] [id number] [place], [address] Chloride [Moles/Vol] 106 mmol/L Normal 98-108 [facility] Comment on above: Performed By: #### L 100.0100, L500.2500, L501.4021 ####[facility] [id number] [place], [address] CO2 [Moles/Vol] 20.0 mmol/L Low 21.0-32.0 [facility] Comment on above: Performed By: #### L 100.0100, L500.2500, L501.4021 ####[facility] [id number] [place], [address] Creatinine [Mass/Vol] 1.52 mg/dL High 0.70-1.20 [facility] Comment on above: Performed By: #### L 100.0100, L500.2500, L501.4021 ####[facility] [id number] [place], [address] ECRCL 46.43 ml/min Low 50-250 [facility] Comment on above: Performed By: #### L 100.0100, L500.2500, L501.4021 ####[facility] [id number] [place], [address] GAP 12 Normal 5-15 [facility] Comment on above: Performed By: #### L 100.0100, L500.2500, L501.4021 ####[facility] [id number] [place], [address] GFR/1.73 sq M.predicted among non-blacks MDRD (S/P/Bld) [Vol rate/Area] 46 mL/min/{1.73_m2} Low >60 [facility] Comment on above: Result Comment: mL/m in/1.73m2 CKD-EPI Creatinine Equation (2020) Performed By: #### L 100.0100, L500.2500, L501.4021 ####[facility] [id number] [place], [address] Glucose [Mass/Vol] 220 mg/dL High 70-99 [facility] Comment on above: Performed By: #### L 100.0100, L500.2500, L501.4021 ####[facility] [id number] [place], [address] Potassium [Moles/Vol] 4.0 mmol/L Normal 3.3-5.1 [facility] Comment on above: Performed By: #### L 100.0100, L500.2500, L501.4021 ####[facility] [id number] [place], [address] Sodium [Moles/Vol] 138 mmol/L Normal 133-145 [facility] Comment on above: Performed By: #### L 100.0100, L500.2500, L501.4021 ####[facility] [id number] [place], [address] Urea nitrogen [Mass/Vol] 16 mg/dL Normal 4-19 [facility] Comment on above: Performed By: #### L 100.0100, L500.2500, L501.4021 ####[facility] [id number] [place], [address] CBCon 01-03-2025 Erythrocyte distribution width (RBC) [Ratio] 15.2 % Normal 11.5-15.5 [facility] Comment on above: Performed By: #### G FR, CBC, ANEU, ADIFF, MG, BMP, HFP #### [address] [address] Hematocrit (Bld) [Volume fraction] 31.3 % Low 40.0-52.0 [facility] Comment on above: Performed By: #### G FR, CBC, ANEU, ADIFF, MG, BMP, HFP #### [address] [address] Hgb 10.2 G/dL Low 13.0-17.5 [facility] Comment on above: Performed By: #### G FR, CBC, ANEU, ADIFF, MG, BMP, HFP #### [address] [address] MCH (RBC) [Entitic mass] 28.5 pg Normal 27.0-33.0 [facility] Comment on above: Performed By: #### G FR, CBC, ANEU, ADIFF, MG, BMP, HFP #### [address] [address] MCHC 32.6 G/dL Normal 32.0-36.0 [facility] Comment on above: Performed By: #### G FR, CBC, ANEU, ADIFF, MG, BMP, HFP #### [place] [address] MCV (RBC) [Entitic vol] 87.6 fL Normal 81.0-100.0 [facility] Comment on above: Performed By: #### G FR, CBC, ANEU, ADIFF, MG, BMP, HFP #### [place] [address] Platelet 143 10 3/mcL Low 150-450 [facility] Comment on above: Performed By: #### G FR, CBC, ANEU, ADIFF, MG, BMP, HFP #### [place] [address] Platelet mean volume (Bld) [Entitic vol] 10.5 fL Normal 6.4-10.5 [facility] Comment on above: Performed By: #### G FR, CBC, ANEU, ADIFF, MG, BMP, HFP #### [place] [address] RBC 3.57 10 6/mcL Low 4.50-6.00 [facility] Comment on above: Performed By: #### G FR, CBC, ANEU, ADIFF, MG, BMP, HFP #### [place] [address] WBC 5.8 10 3/mcL Normal 4.5-10.8 [facility] Comment on above: Performed By: #### G FR, CBC, ANEU, ADIFF, MG, BMP, HFP #### [place] [address] Erythrocyte distribution width (RBC) [Ratio] 15.9 % High 11.5-15.5 [facility] Comment on above: Performed By: #### G FR, CBC, ANEU, ADIFF, MG, BMP, HFP #### [place] [address] Hematocrit (Bld) [Volume fraction] 33.2 % Low 40.0-52.0 [facility] Comment on above: Performed By: #### G FR, CBC, ANEU, ADIFF, MG, BMP, HFP #### [place] [address] Hgb 10.7 G/dL Low 13.0-17.5 [facility] Comment on above: Performed By: #### G FR, CBC, ANEU, ADIFF, MG, BMP, HFP #### [place] [address] MCH (RBC) [Entitic mass] 28.7 pg Normal 27.0-33.0 [facility] Comment on above: Performed By: #### G FR, CBC, ANEU, ADIFF, MG, BMP, HFP #### [place] [address] MCHC 32.3 G/dL Normal 32.0-36.0 [facility] Comment on above: Performed By: #### G FR, CBC, ANEU, ADIFF, MG, BMP, HFP #### [place] [address] MCV (RBC) [Entitic vol] 89.0 fL Normal 81.0-100.0 [facility] Comment on above: Performed By: #### G FR, CBC, ANEU, ADIFF, MG, BMP, HFP #### [place] [address] Platelet 154 10 3/mcL Normal 150-450 [facility] Comment on above: Performed By: #### G FR, CBC, ANEU, ADIFF, MG, BMP, HFP #### [place] [address] Platelet mean volume (Bld) [Entitic vol] 10.3 fL Normal 6.4-10.5 [facility] Comment on above: Performed By: #### G FR, CBC, ANEU, ADIFF, MG, BMP, HFP #### [place] [address] RBC 3.73 10 6/mcL Low 4.50-6.00 [facility] Comment on above: Performed By: #### G FR, CBC, ANEU, ADIFF, MG, BMP, HFP #### [facility] [address] [place] [id number] WBC 6.7 10 3/mcL Normal 4.5-10.8 [facility] Comment on above: Performed By: #### G FR, CBC, ANEU, ADIFF, MG, BMP, HFP #### [facility] [address] [place] [id number] CBC W/Diff, Automatedon 09-0 3-2024 Absolute Lymph 0.70 X10 3/uL Low 0.83-4.51 [facility] Comment on above: Performed By: #### L 100.0100, L500.2500, L501.4021 ####[facility] [id number] [place], [address] Absolute Neut 5.8 X10 3/uL Normal 2.0-7.7 [facility] Comment on above: Performed By: #### L 100.0100, L500.2500, L501.4021 ####[facility] [id number] [place], [address] Basophils/100 WBC (Bld) 0.1 % Normal 0-1 [facility] Comment on above: Performed By: #### L 100.0100, L500.2500, L501.4021 ####[facility] [id number] [place], [address] Eosinophils/100 WBC (Bld) 1.1 % Normal 0-5 [facility] Comment on above: Performed By: #### L 100.0100, L500.2500, L501.4021 ####[facility] [address] [place], [address] Erythrocyte distribution width (RBC) [Ratio] 15.7 % High 11.6-14.6 [facility] Comment on above: Performed By: #### L 100.0100, L500.2500, L501.4021 ####[facility] [address] [place], [address] Hematocrit (Bld) [Volume fraction] 33.4 % Low 40-54 [facility] Comment on above: Performed By: #### L 100.0100, L500.2500, L501.4021 ####[facility] [address] [place], [address] Hemoglobin (Bld) [Mass/Vol] 10.5 g/dL Low 13.0-16.5 [facility] Comment on above: Performed By: #### L 100.0100, L500.2500, L501.4021 ####[facility] [address] [place], [address] IG% 0.400 Normal 0.0-0.9 [facility] Comment on above: Result Comment: IG% - Immature Granulocytes (promyelocytes, myelocytes andmetamyelocytes) > 1% indicates that a LEFT SHIFT is Present. Performed By: #### L 100.0100, L500.2500, L501.4021 ####[facility] [address] [place], [address] Lymphocytes/100 WBC (Bld) 9.6 % Low 19-41 [facility] Comment on above: Performed By: #### L 100.0100, L500.2500, L501.4021 ####[facility] [address] [place], [address] MCH (RBC) [Entitic mass] 28.9 pg Normal 27.0-32.0 [facility] Comment on above: Performed By: #### L 100.0100, L500.2500, L501.4021 ####[facility] [address] [place], [address] MCHC (RBC) [Mass/Vol] 31.4 g/dL Low 32-36 [facility] Comment on above: Performed By: #### L 100.0100, L500.2500, L501.4021 ####[facility] [address] [place], [address] MCV (RBC) [Entitic vol] 92.0 fL Normal 80-94 [facility] Comment on above: Performed By: #### L 100.0100, L500.2500, L501.4021 ####[facility] [address] [place], [address] Monocytes/100 WBC (Bld) 8.9 % Normal 0-10 [facility] Comment on above: Performed By: #### L 100.0100, L500.2500, L501.4021 ####[facility] [address] [place], [address] Neutrophils/100 WBC (Bld) 79.9 % High 47-70 [facility] Comment on above: Performed By: #### L 100.0100, L500.2500, L501.4021 ####[facility] [address] [place], [address] Nucleated RBC (Bld) [#/Vol] 0 10*3/uL Normal 0-5 [facility] Comment on above: Performed By: #### L 100.0100, L500.2500, L501.4021 ####[facility] [address] [place], [address] Platelet mean volume (Bld) [Entitic vol] 12.7 fL High 6.2-12.0 [facility] Comment on above: Performed By: #### L 100.0100, L500.2500, L501.4021 ####[facility] [address] [place], [address] Platelets (Bld) [#/Vol] 155 10*3/uL Normal 150-450 [facility] Comment on above: Performed By: #### L 100.0100, L500.2500, L501.4021 ####[facility] [address] [place], [address] RBC (Bld) [#/Vol] 3.63 10*6/uL Low 4.6-6.2 [facility] Comment on above: Performed By: #### L 100.0100, L500.2500, L501.4021 ####[facility] [address] [place], [address] RDW SD 51.9 fl High 35.1-43.9 [facility] Comment on above: Performed By: #### L 100.0100, L500.2500, L501.4021 ####[facility] [address] [place], [address] WBC (Bld) [#/Vol] 7.3 10*3/uL Normal 4.4-11.0 [facility] Comment on above: Performed By: #### L 100.0100, L500.2500, L501.4021 ####[facility] [address] [place], [address] CMPon 01-03-2025 Albumin Level 3.0 G/dL Low 3.2-4.8 [facility] Comment on above: Performed By: #### G FR, CBC, ANEU, ADIFF, MG, BMP, HFP #### [address] [address] Albumin/Globulin [Mass ratio] 0.8 {ratio} Low 0.9-1.6 [facility] Comment on above: Performed By: #### G FR, CBC, ANEU, ADIFF, MG, BMP, HFP #### [address] [address] ALP [Catalytic activity/Vol] 107 U/L Normal 38-126 [facility] Comment on above: Performed By: #### G FR, CBC, ANEU, ADIFF, MG, BMP, HFP #### [address] [address] ALT [Catalytic activity/Vol] 20 U/L Normal 12-55 [facility] Comment on above: Performed By: #### G FR, CBC, ANEU, ADIFF, MG, BMP, HFP #### [address] [address] AST [Catalytic activity/Vol] 51 U/L High 8-34 [facility] Comment on above: Performed By: #### G FR, CBC, ANEU, ADIFF, MG, BMP, HFP #### [address] [address] Bili Total 1.10 mg/dL Normal 0.20-1.20 [facility] Comment on above: Result Comment: Use of this assay is not recommended for patients undergoing treatment with eltrombopag due to the potential for falsely elevated results. Performed By: #### G FR, CBC, ANEU, ADIFF, MG, BMP, HFP #### [address] [address] BUN/Creatinine Ratio 9.0 ratio Low 10.0-22.0 [facility] Comment on above: Performed By: #### G FR, CBC, ANEU, ADIFF, MG, BMP, HFP #### [address] [address] Calcium [Mass/Vol] 9.0 mg/dL Normal 8.7-10.4 [facility] Comment on above: Performed By: #### G FR, CBC, ANEU, ADIFF, MG, BMP, HFP #### [address] [address] Chloride [Moles/Vol] 109 mmol/L Normal 98-110 [facility] Comment on above: Performed By: #### G FR, CBC, ANEU, ADIFF, MG, BMP, HFP #### [address] [address] CO2 [Moles/Vol] 25 mmol/L Normal 22-32 [facility] Comment on above: Performed By: #### G FR, CBC, ANEU, ADIFF, MG, BMP, HFP #### [address] [address] Creatinine [Mass/Vol] 1.44 mg/dL High 0.60-1.40 [facility] Comment on above: Result Comment: Test ing performed on [employer] analyzer using enzymatic creatinine methodology. Performed By: #### G FR, CBC, ANEU, ADIFF, MG, BMP, HFP #### [address] [address] Electrolyte Balance 9.0 mEq/L Normal 4.0-15.0 [facility] Comment on above: Performed By: #### G FR, CBC, ANEU, ADIFF, MG, BMP, HFP #### [address] [address] Globulin 3.6 G/dL Normal 2.5-4.2 [facility] Comment on above: Performed By: #### G FR, CBC, ANEU, ADIFF, MG, BMP, HFP #### [address] [address] Glucose [Mass/Vol] 134 mg/dL High 82-115 [facility] Comment on above: Performed By: #### G FR, CBC, ANEU, ADIFF, MG, BMP, HFP #### [address] [address] Potassium [Moles/Vol] 4.5 mmol/L Normal 3.5-5.0 [facility] Comment on above: Performed By: #### G FR, CBC, ANEU, ADIFF, MG, BMP, HFP #### [address] [address] Sodium [Moles/Vol] 143 mmol/L Normal 136-145 [facility] Comment on above: Performed By: #### G FR, CBC, ANEU, ADIFF, MG, BMP, HFP #### [address] [address] Total Protein 6.6 G/dL Normal 5.7-8.2 [facility] Comment on above: Performed By: #### G FR, CBC, ANEU, ADIFF, MG, BMP, HFP #### [address] [address] Urea nitrogen [Mass/Vol] 13.0 mg/dL Normal 8.0-22.0 [facility] Comment on above: Performed By: #### G FR, CBC, ANEU, ADIFF, MG, BMP, HFP #### [facility] [address] [place] [address] Chest 1 View (Portable)on Chest 1 View (Portable) Normal [facility] Emergency Department Summary on 01-03-2025 Emergency Department Summary Normal [facility] L501.4021on 01-03-2025 Trop T High Sen 1948 ng/L Invalid Interpretation Code <=22 [facility] Comment on above: Result Comment: [place] ical Result(s) Called at: by:??LUIS MAYS Resultsread back by same. Performed By: #### L 100.0100, L500.2500, L501.4021 ####[facility] [address] [place], [address] LABORATORYOrdered By: SYSTEM SYSTEM on 01-03-2025 aPTT [...] High 9.0 - 1 4.4 seconds [facility] Comment on above: Interpretive Data: E ffective 11/15/07, Protime results may be affected by some antibiotics (i.e. Ciprofloxacin, Azithromycin, Bactrim) which may potentiate the action of oral anticoagulants, with further increases in Protime/INR. PT International Ratio 1.3 ratio Invalid Interpretation Code [facility] Comment on above: Interpretive Data: Blake bourne [employer] [place] [employer] (CHEST, 1992, 102:312S-25S) recommended therapeutic range for oral anticoagulant [...] ng/L Male: 0-54 ng/L Testing performed on [employer] analyzer using direct chemiluminescent technology. TSH Qn 3.371 mIU/mL Normal 0.550 - 4.780 mIU/mL ADM SS Lactate [Moles/Vol] 3.5 mmol/L High 0.5 - 2. 2 mmol/L ADM SS Natriuretic peptide.B prohormone N-Terminal IA [Mass/Vol] 4522 pg/mL High 0 - 1800 pg/mL ADM SS LACon 01-03-2025 Lactic Acid Lvl 1.7 mmol/L Normal 0.5-2.2 [facility] Comment on above: Order Comment: Order ed secondary to Lactic Acid result greater than or equal to 2.0 Performed By: #### G FR, CBC, ANEU, ADIFF, MG, BMP, HFP #### [place] [address] Lactic Acid Lvl 3.5 mmol/L High 0.5-2.2 [facility] Comment on above: Performed By: #### G FR, CBC, ANEU, ADIFF, MG, BMP, HFP #### [place] [address] MGon 01-03-2025 Magnesium [Mass/Vol] 1.9 mg/dL Normal 1.6-2.4 [facility] Comment on above: Performed By: #### G FR, CBC, ANEU, ADIFF, MG, BMP, HFP #### [place] [address] Magnesium [Mass/Vol] 2.0 mg/dL Normal 1.6-2.4 [facility] Comment on above: Performed By: #### G FR, CBC, ANEU, ADIFF, MG, BMP, HFP #### [address] [address] PBNPon 01-03-2025 Natriuretic peptide B (Bld) [Mass/Vol] 4739 pg/mL High 0-1800 [facility] Comment on above: Performed By: #### G FR, CBC, ANEU, ADIFF, MG, BMP, HFP #### [facility] [address] [place] [address] Natriuretic peptide B (Bld) [Mass/Vol] 4522 pg/mL High 0-1800 [facility] Comment on above: Performed By: #### G FR, CBC, ANEU, ADIFF, MG, BMP, HFP #### [facility] [address] [place] [address] PROon 01-03-2025 INR Coag (PPP) [Relative time] 1.3 {INR} Normal [facility] Comment on above: Result Comment: [employer] [place] [employer] (CHEST, 1992, 102:312S-25S) recommended therapeutic range for oral anticoagulant therapy is: LOW RISK: Prophylaxis of venous thrombosis INR: 2.0-3.0 Treatment of pulmonary embolism 2.0-3.0 Prevention of systemic embolism 2.0-3.0 HIGH RISK: Mechanical prosthetic valves 2.5-3.5 Performed By: #### G FR, CBC, ANEU, ADIFF, MG, BMP, HFP #### [place] [address] PT Coag (PPP) [Time] 14.9 s High 9.0-14.4 [facility] Comment on above: Result Comment: Effe ctive 11/15/07, Protime results may be affected by some antibiotics (i.e. Ciprofloxacin, Azithromycin, Bactrim) which may potentiate the action of oral anticoagulants, with further increases in Protime/INR. Performed By: #### G FR, CBC, ANEU, ADIFF, MG, BMP, HFP #### [place] [id number] TROPHSon 01-03-2025 High Sensitivity Troponin I 7058 ng/L High 0-54 [facility] Comment on above: Result Comment: High Sensitive Troponin I Reference Ranges: Female: 0-34 ng/L Male: 0-54 ng/L Testing performed on [employer] IM analyzer using direct chemiluminescent technology. Performed By: #### G FR, CBC, ANEU, ADIFF, MG, BMP, HFP #### [address] [address] TSHon 01-03-2025 TSH 3.371 mIU/mL Normal 0.550-4.78 0 [facility] Comment on above: Performed By: #### G FR, CBC, ANEU, ADIFF, MG, BMP, HFP #### [address] [address] Troponin T HS 2 HRon 025 Trop T High Sen 1731 ng/L Invalid Interpretation Code <=22 [facility] Comment on above: Result Comment: Crit ical Result(s) Called at: by: NAJMA MAYS??Resultsread back by same. Performed By: #### L 499.0042 ####[facility] [address] [place], [place], [id number]) Trop T High Sen 1965 ng/L Invalid Interpretation Code <=22 [facility] Comment on above: Result Comment: INCO RRECTLY RECEIVEDCritical Result(s) Called at: by:LUIS MAYS??Results readback by same. Performed By: #### L 499.0042 ####[facility] [address] [place], [place], [address] Troponin T HS 4 HRon 025 Trop T High Sen 1771 ng/L Invalid Interpretation Code <=22 [facility] Comment on above: Result Comment: Crit ical Result(s) Called at: by:??CHIO SIMENTAL Results readback by same. Performed By: #### L 499.0043 ####[facility] [address] [place], [place], [id number] Lead EKGon 01-01-2025 12 Lead EKG Normal [facility] Absolute lymphocyte countOrd ered By: Shaan Hirsch on 01-01-2025 Lymphocytes Auto (Unsp spec) [#/Vol] 0.81 10*3/uL Low 0.83-4.51 [facility] Anion gap in Serum or Plasma Ordered By: Shaan Hirsch on 01-01-2025 Anion gap [Moles/Vol] 11 mmol/L 5-15 [facility] Automated lymphocyte count a s percentage of total leukocytesOrdered By: Shaan Hirsch on 01-01-2025 Lymphocytes/100 WBC Auto (Unsp spec) 12.6 % Low 19-41 [facility] BUN/creatinine ratioOrdered By: Shaan Hirsch on 01-01-2025 Urea nitrogen/Creatinine [Mass ratio] 10.7 mg/mg 10-20 [facility] Basic Metabolic Profile (BMP )on 01-01-2025 BUN/CRE 10.7 RATIO Normal 10- [facility] Comment on above: Performed By: #### L 501.4021, L100.0100, L500.2500 ####[facility] [address] [place], [address] Calcium [Mass/Vol] 8.9 mg/dL Normal 7.6-11.0 [facility] Comment on above: Performed By: #### L 501.4021, L100.0100, L500.2500 ####[facility] [address] [place], [address] Chloride [Moles/Vol] 106 mmol/L Normal 98-108 [facility] Comment on above: Performed By: #### L 501.4021, L100.0100, L500.2500 ####[facility] [address] [place], [address] CO2 [Moles/Vol] 22.5 mmol/L Normal 21.0-32.0 [facility] Comment on above: Performed By: #### L 501.4021, L100.0100, L500.2500 ####[facility] [address] [place], [address] Creatinine [Mass/Vol] 1.36 mg/dL High 0.70-1.20 [facility] Comment on above: Performed By: #### L 501.4021, L100.0100, L500.2500 ####[facility] [address] [place], [address] ECRCL 52.44 ml/min Normal 50-250 [facility] Comment on above: Performed By: #### L 501.4021, L100.0100, L500.2500 ####[facility] [address] [place], [address] GAP 11 Normal 5-15 [facility] Comment on above: Performed By: #### L 501.4021, L100.0100, L500.2500 ####[facility] [address] [place], [address] GFR/1.73 sq M.predicted among non-blacks MDRD (S/P/Bld) [Vol rate/Area] 53 mL/min/{1.73_m2} Low >60 [facility] Comment on above: Result Comment: mL/m in/1.73m2 CKD-EPI Creatinine Equation (2020) Performed By: #### L 501.4021, L100.0100, L500.2500 ####[facility] [address] [place], [address] Glucose [Mass/Vol] 142 mg/dL High 70-99 [facility] Comment on above: Performed By: #### L 501.4021, L100.0100, L500.2500 ####[facility] [address] [place], [address] Potassium [Moles/Vol] 4.2 mmol/L Normal 3.3-5.1 [facility] Comment on above: Performed By: #### L 501.4021, L100.0100, L500.2500 ####[facility] [address] [place], [address] Sodium [Moles/Vol] 140 mmol/L Normal 133-145 [facility] Comment on above: Performed By: #### L 501.4021, L100.0100, L500.2500 ####[facility] [address] [place], [address] Urea nitrogen [Mass/Vol] 15 mg/dL Normal 4-19 [facility] Comment on above: Performed By: #### L 501.4021, L100.0100, L500.2500 ####[facility] [address] [place], [address] Basophil percentageOrdered B y: Shaan Hirsch on 01-01-2024 Basophils/100 WBC (Bld) 0.3 % 0-1 [facility] CBC W/Diff, Automatedon Absolute Lymph 0.81 X10 3/uL Low 0.83-4.51 [facility] Comment on above: Performed By: #### L 501.4021, L100.0100, L500.2500 ####[facility] [address] [place], [address] Absolute Neut 4.8 X10 3/uL Normal 2.0-7.7 [facility] Comment on above: Performed By: #### L 501.4021, L100.0100, L500.2500 ####[facility] [address] [place], [address] Basophils/100 WBC (Bld) 0.3 % Normal 0-1 [facility] Comment on above: Performed By: #### L 501.4021, L100.0100, L500.2500 ####[facility] [address] [place], [address] Eosinophils/100 WBC (Bld) 1.6 % Normal 0-5 [facility] Comment on above: Performed By: #### L 501.4021, L100.0100, L500.2500 ####[facility] [address] [place], [address] Erythrocyte distribution width (RBC) [Ratio] 15.5 % High 11.6-14.6 [facility] Comment on above: Performed By: #### L 501.4021, L100.0100, L500.2500 ####[facility] [address] [place], [address] Hematocrit (Bld) [Volume fraction] 35.9 % Low 40-54 [facility] Comment on above: Performed By: #### L 501.4021, L100.0100, L500.2500 ####[facility] [address] [place], [address] Hemoglobin (Bld) [Mass/Vol] 11.1 g/dL Low 13.0-16.5 [facility] Comment on above: Performed By: #### L 501.4021, L100.0100, L500.2500 ####[facility] [address] [place], [address] IG% 0.300 Normal 0.0-0.9 [facility] Comment on above: Result Comment: IG% - Immature Granulocytes (promyelocytes, myelocytes andmetamyelocytes) > 1% indicates that a LEFT SHIFT is Present. Performed By: #### L 501.4021, L100.0100, L500.2500 ####[facility] [address] [place], [address] Lymphocytes/100 WBC (Bld) 12.6 % Low 19-41 [facility] Comment on above: Performed By: #### L 501.4021, L100.0100, L500.2500 ####[facility] [address] [place], [address] MCH (RBC) [Entitic mass] 28.4 pg Normal 27.0-32.0 [facility] Comment on above: Performed By: #### L 501.4021, L100.0100, L500.2500 ####[facility] [address] [place], [address] MCHC (RBC) [Mass/Vol] 30.9 g/dL Low 32-36 [facility] Comment on above: Performed By: #### L 501.4021, L100.0100, L500.2500 ####[facility] [address] [place], [address] MCV (RBC) [Entitic vol] 91.8 fL Normal 80-94 [facility] Comment on above: Performed By: #### L 501.4021, L100.0100, L500.2500 ####[facility] [address] [place], [address] Monocytes/100 WBC (Bld) 9.7 % Normal 0-10 [facility] Comment on above: Performed By: #### L 501.4021, L100.0100, L500.2500 ####[facility] [address] [place], [address] Neutrophils/100 WBC (Bld) 75.5 % High 47-70 [facility] Comment on above: Performed By: #### L 501.4021, L100.0100, L500.2500 ####[facility] [address] [place], [address] Nucleated RBC (Bld) [#/Vol] 0 10*3/uL Normal 0-5 [facility] Comment on above: Performed By: #### L 501.4021, L100.0100, L500.2500 ####[facility] [address] [place], [address] Platelet mean volume (Bld) [Entitic vol] 12.8 fL High 6.2-12.0 [facility] Comment on above: Performed By: #### L 501.4021, L100.0100, L500.2500 ####[facility] [address] [place], [address] Platelets (Bld) [#/Vol] 142 10*3/uL Low 150-450 [facility] Comment on above: Performed By: #### L 501.4021, L100.0100, L500.2500 ####[facility] [address] [place], [address] RBC (Bld) [#/Vol] 3.91 10*6/uL Low 4.6-6.2 [facility] Comment on above: Performed By: #### L 501.4021, L100.0100, L500.2500 ####[facility] [address] [place], [address] RDW SD 50.7 fl High 35.1-43.9 [facility] Comment on above: Performed By: #### L 501.4021, L100.0100, L500.2500 ####[facility] [address] [place], [address] WBC (Bld) [#/Vol] 6.4 10*3/uL Normal 4.4-11.0 [facility] Comment on above: Performed By: #### L 501.4021, L100.0100, L500.2500 ####[facility] [address] [place], [address] Carbon dioxide, total [Moles /volume] in Central venous bloodOrdered By: Shaan Hirsch on 01-01-2025 CO2 [Moles/Vol] 22.5 mmol/L 21.0-32.0 [facility] Chest 1 View (Portable)on Chest 1 View (Portable) Normal [facility] Chloride assayOrdered By: Jason Hirsch on 01-01-2025 Chloride [Moles/Vol] 106 mmol/L 98-108 [facility] Emergency Department Summary on 01-01-2025 Emergency Department Summary Normal [facility] Eosinophil percentageOrdered By: Shaan Hirsch on 01-01-2025 Eosinophils/100 WBC (Bld) 1.6 % 0-5 [facility] Erythrocyte distribution wid th ratioOrdered By: Shaan Hirsch on 01-01-2025 Erythrocyte distribution width (RBC) [Ratio] 15.5 % High 11.6-14.6 [facility] Erythrocyte distribution wid th standard deviationOrdered By: Shaan Hirsch on 01-01-2025 Erythrocyte distribution width (RBC) [Ratio] 50.7 fl High 35.1-43.9 [facility] Glomerular filtration rate ( GFR) estimation/1.73 sq m using serum, plasma, or whole bOrdered By: Shaan Hirsch on 01-01-2025 GFR/1.73 sq M.predicted among non-blacks MDRD (S/P/Bld) [Vol rate/Area] 53 mL/min/{1.73_m2} Low >60 [facility] Hematocrit Auto (Bld) [Volum e fraction]Ordered By: Shaan Hirsch on 01-01-2025 Hematocrit (Bld) [Volume fraction] 35.9 % Low 40-54 [facility] Hemoglobin measurementOrdere d By: Shaan Hirsch on 01-01-2025 Hemoglobin (Bld) [Mass/Vol] 11.1 g/dL Low 13.0-16.5 [facility] Immature granulocytes/100 WB C Auto (Bld)Ordered By: Shaan Hirsch on 01-01-2025 Immature granulocytes/100 WBC (Bld) 0.300 % 0.0-0.9 [facility] L501.4021on 01-01-2025 Trop T High Sen 119 ng/L Invalid Interpretation Code <=22 [facility] Comment on above: Result Comment: Crit ical Result(s) Called at 01/01/2025-10:06 by Seymour [place].??Results read back by same. Performed By: #### L 501.4021, L100.0100, L500.2500 ####[facility] [address] [place], [place], [id number] MCV (mean corpuscular volume ) determinationOrdered By: Shaan Hirsch on 01-01-2025 MCV (RBC) [Entitic vol] 91.8 fL 80-94 [facility] Mean corpuscular hemoglobin (MCH) determinationOrdered By: Shaan Hirsch on 01-01-2025 MCH (RBC) [Entitic mass] 28.4 pg 27.0-32.0 [facility] Monocyte percentageOrdered B y: Shaan Hirsch on 01-01-2025 Monocytes/100 WBC (Bld) 9.7 % 0-10 [facility] Neutrophil percentageOrdered By: Shaan Hirsch on 01-01-2025 Neutrophils/100 WBC (Bld) 75.5 % High 47-70 [facility] Platelet countOrdered By: Jason Hirsch on 01-01-2025 Platelets (Bld) [#/Vol] 142 10*3/uL Low 150-450 [facility] Potassium measurement (mass/ volume)Ordered By: Shaan Hirsch on 01-01-2025 Potassium (Unsp spec) [Mass/Vol] 4.2 mmol/L 3.3-5.1 [facility] RBC Auto (Bld) [#/Vol]Ordere d By: Shaan Hirsch on 01-01-2025 RBC (Bld) [#/Vol] 3.91 10*6/uL Low 4.6-6.2 [facility] Serum creatinine measurement (mass/volume)Ordered By: Shaan Hirsch on 01-01-2025 Creatinine [Mass/Vol] 1.36 mg/dL High 0.70-1.20 [facility] Serum glucose measurement (m ass/volume)Ordered By: Shaan Hirsch on 01-01-2025 Glucose [Mass/Vol] 142 mg/dL High 70-99 [facility] Serum or plasma calcium francine urement (mass/volume)Ordered By: Shaan Hirsch on 01-01-2025 Calcium [Mass/Vol] 8.9 mg/dL 7.6-11.0 [facility] Serum or plasma urea nitroge n measurement (mass/volume)Ordered By: Shaan Hirsch on 01-01-2025 Urea nitrogen [Mass/Vol] 15 mg/dL 4-19 [facility] Sodium levelOrdered By: Shaan Hirsch on 01-01-2025 Sodium [Moles/Vol] 140 mmol/L 133-145 [facility] Troponin T HS 2 HRon 025 Trop T High Sen 106 ng/L Invalid Interpretation Code <=22 [facility] Comment on above: Result Comment: Crit ical Result(s) Called at 01/01/2025-11:44 by Seymour [place].??Results read back by same. Performed By: #### L 499.0042 ####[facility] [address] [place], [place], [address] Troponin T HS 4 HRon 025 Trop T High Sen Normal <=22 [facility] Comment on above: Result Comment: Canc elled via OM: Order cancelled - Patient discharged Performed By: #### L 499.0043 ####[facility] [address] [place], [address] Troponin T.cardiac [Mass/vol ume] in Serum or Plasma by High sensitivity methodOrdered By: Shaan Hirsch on 01-01-2025 Troponin T.cardiac High sensitivity method [Mass/Vol] 106 ng/L High <22 [facility] Troponin T.cardiac High sensitivity method [Mass/Vol] 119 ng/L High <22 [facility] White blood cell (WBC) count Ordered By: Shaan Hirsch on 01-01-2025 WBC (Bld) [#/Vol] 6.4 10*3/uL 4.4-11.0 [facility] Absolute lymphocyte countOrd ered By: Boyd Rock on 12-28-2024 Lymphocytes Auto (Unsp spec) [#/Vol] 1.02 10*3/uL 0.83-4.51 [facility] Anion gap in Serum or Plasma Ordered By: Boyd Rock on 12-28-2024 Anion gap [Moles/Vol] 10 mmol/L 5-15 [facility] Automated lymphocyte count a s percentage of total leukocytesOrdered By: Boyd Rock on 12-28-2024 Lymphocytes/100 WBC Auto (Unsp spec) 17.4 % Low 19-41 [facility] BUN/creatinine ratioOrdered By: Boyd Rock on 12-28-2024 Urea nitrogen/Creatinine [Mass ratio] 7.5 mg/mg Low 10-20 [facility] Basophil percentageOrdered B y: Boyd Garryliane on 12-28-2024 Basophils/100 WBC (Bld) 0.3 % 0-1 [facility] Carbon dioxide, total [Moles /volume] in Central venous bloodOrdered By: Susannagarryabbeybrittni Castañedamiarmand on 12-28-2024 CO2 [Moles/Vol] 22.0 mmol/L 21.0-32.0 [facility] Chloride assayOrdered By: Susanna meenabrittni Castañedamiarmand on 12-28-2024 Chloride [Moles/Vol] 109 mmol/L High 98-108 [facility] Eosinophil percentageOrdered By: Susannagarryabbeybrittni Castañedamiarmand on 12-28-2024 Eosinophils/100 WBC (Bld) 2.4 % 0-5 [facility] Erythrocyte distribution wid th ratioOrdered By: garrytesha Garrymiarmand on 12-28-2024 Erythrocyte distribution width (RBC) [Ratio] 14.8 % High 11.6-14.6 [facility] Erythrocyte distribution wid th standard deviationOrdered By: Lupetesha Garrymiarmand on 12-28-2024 Erythrocyte distribution width (RBC) [Ratio] 48.7 fl High 35.1-43.9 [facility] Glomerular filtration rate ( GFR) estimation/1.73 sq m using serum, plasma, or whole bOrdered By: Susannagarryabbeybrittni Castañedamiarmand on 12-28-2024 GFR/1.73 sq M.predicted among non-blacks MDRD (S/P/Bld) [Vol rate/Area] 52 mL/min/{1.73_m2} Low >60 [facility] Hematocrit Auto (Bld) [Volum e fraction]Ordered By: Boyd Rock on 12-28-2024 Hematocrit (Bld) [Volume fraction] 30.9 % Low 40-54 [facility] Hemoglobin measurementOrdere d By: Boyd Castañedamiarmand on 12-28-2024 Hemoglobin (Bld) [Mass/Vol] 9.8 g/dL Low 13.0-16.5 [facility] Immature granulocytes/100 WB C Auto (Bld)Ordered By: Boyd Rock on 12-28-2024 Immature granulocytes/100 WBC (Bld) 0.300 % 0.0-0.9 [facility] MCV (mean corpuscular volume ) determinationOrdered By: Boyd Rock on 12-28-2024 MCV (RBC) [Entitic vol] 91.2 fL 80-94 [facility] Mean corpuscular hemoglobin (MCH) determinationOrdered By: Boyd Rock on 12-28-2024 MCH (RBC) [Entitic mass] 28.9 pg 27.0-32.0 [facility] Monocyte percentageOrdered B y: Boyd Rock on 12-28-2024 Monocytes/100 WBC (Bld) 9.9 % 0-10 [facility] Neutrophil percentageOrdered By: Jefferson Hospitalbrittni Rock on 12-28-2024 Neutrophils/100 WBC (Bld) 69.7 % 47-70 [facility] Platelet countOrdered By: Susanna Rock on 12-28-2024 Platelets (Bld) [#/Vol] 112 10*3/uL Low 150-450 [facility] Potassium measurement (mass/ volume)Ordered By: Susannagarryabbeybrittni Castañedamiarmand on 12-28-2024 Potassium (Unsp spec) [Mass/Vol] 3.8 mmol/L 3.3-5.1 [facility] RBC Auto (Bld) [#/Vol]Ordere d By: Boyd Rock on 12-28-2024 RBC (Bld) [#/Vol] 3.39 10*6/uL Low 4.6-6.2 [facility] Serum creatinine measurement (mass/volume)Ordered By: Susannaandrés Rock on 12-28-2024 Creatinine [Mass/Vol] 1.39 mg/dL High 0.70-1.20 [facility] Serum glucose measurement (m ass/volume)Ordered By: Susannagarryabbeybrittni Castañedamiarmand on 12-28-2024 Glucose [Mass/Vol] 131 mg/dL High 70-99 [facility] Serum or plasma calcium francine urement (mass/volume)Ordered By: Susannagarryabbeybrittni Castañedamiarmand on 12-28-2024 Calcium [Mass/Vol] 7.9 mg/dL 7.6-11.0 [facility] Serum or plasma urea nitroge n measurement (mass/volume)Ordered By: Boyd Rock on 12-28-2024 Urea nitrogen [Mass/Vol] 10 mg/dL 4-19 [facility] Sodium levelOrdered By: Lupe Rock on 12-28-2024 Sodium [Moles/Vol] 141 mmol/L 133-145 [facility] White blood cell (WBC) count Ordered By: Boyd Rock on 12-28-2024 WBC (Bld) [#/Vol] 5.9 10*3/uL 4.4-11.0 [facility] Bilirubin Test strip Ql (U)O rdered By: Boyd Rock on 12-27-2024 Bilirubin Ql (U) Negative Negative [facility] Ketones Test strip Ql (U)Ord ered By: Boyd Rock on 12-27-2024 Ketones Ql (U) Negative Negative [facility] Nitrite Test strip Ql (U)Ord ered By: Boyd Rock on 12-27-2024 Nitrite Ql (U) Negative Negative [facility] Protein Test strip Ql (U)Ord ered By: Boyd Rock on 12-27-2024 Protein Ql (U) Negative Negative [facility] Urine clarityOrdered By: Anastacio Rock on 12-27-2024 Clarity (U) Cloudy Clear [facility] Urine color determinationOrd ered By: Boyd Rock on 12-27-2024 Color (U) Straw Yellow [facility] Urine cultureOrdered By: Anastacio Rock on 12-27-2024 Bacteria identified Cx Nom (U) Staphylococcus aureus Abnormal [facility] Urine glucose detectionOrder ed By: Boyd Rock on 12-27-2024 Glucose Ql (U) 1000 mg/dl High Normal [facility] Urine leukocyte esterase det ection by dipstickOrdered By: Boyd Rock on 12-27-2024 Leukocyte esterase Test strip Ql (U) 100 /ul High Negative [facility] Urine pHOrdered By: Grace Rock on 12-27-2024 pH (U) 6.0 [pH] 5.0 - 8.0 [facility] Urine specific gravity measu rementOrdered By: Boyd Rock on 12-27-2024 Specific gravity (U) [Rel density] 1.010 1.002-1.03 0 [facility] Urine urobilinogen measureme ntOrdered By: Boyd Rock on 12-27-2024 Urobilinogen Ql (U) Normal mg/dl Normal [facility] Absolute lymphocyte countOrd ered By: Eladio Melendez on 12-26-2024 Lymphocytes Auto (Unsp spec) [#/Vol] 0.80 10*3/uL Low 0.83-4.51 [facility] Anion gap in Serum or Plasma Ordered By: Eladio Melendez on 12-26-2024 Anion gap [Moles/Vol] 9 mmol/L 5-15 [facility] Automated lymphocyte count a s percentage of total leukocytesOrdered By: Eladio Melendez on 12-26-2024 Lymphocytes/100 WBC Auto (Unsp spec) 12.6 % Low 19-41 [facility] BUN/creatinine ratioOrdered By: Eladio Melendez on 12-26-2024 Urea nitrogen/Creatinine [Mass ratio] 6.2 mg/mg Low 10-20 [facility] Basic Metabolic Profile (BMP )on 12-26-2024 BUN/CRE 6.2 RATIO Low 10-20 [facility] Comment on above: Performed By: #### L 501.2300, L500.2500, L501.5200, L100.0100 ####[facility] [address] [place], [address] Calcium [Mass/Vol] 8.0 mg/dL Normal 7.6-11.0 [facility] Comment on above: Performed By: #### L 501.2300, L500.2500, L501.5200, L100.0100 ####[facility] [address] [place], [address] Chloride [Moles/Vol] 109 mmol/L High 98-108 [facility] Comment on above: Performed By: #### L 501.2300, L500.2500, L501.5200, L100.0100 ####[facility] [address] [place], [address] CO2 [Moles/Vol] 22.2 mmol/L Normal 21.0-32.0 [facility] Comment on above: Performed By: #### L 501.2300, L500.2500, L501.5200, L100.0100 ####[facility] [address] [place], [address] Creatinine [Mass/Vol] 1.33 mg/dL High 0.70-1.20 [facility] Comment on above: Performed By: #### L 501.2300, L500.2500, L501.5200, L100.0100 ####[facility] [address] [place], [address] ECRCL 52.07 ml/min Normal 50-250 [facility] Comment on above: Performed By: #### L 501.2300, L500.2500, L501.5200, L100.0100 ####[facility] [address] [place], [address] GAP 9 Normal 5-15 [facility] Comment on above: Performed By: #### L 501.2300, L500.2500, L501.5200, L100.0100 ####[facility] [address] [place], [address] GFR/1.73 sq M.predicted among non-blacks MDRD (S/P/Bld) [Vol rate/Area] 54 mL/min/{1.73_m2} Low >60 [facility] Comment on above: Result Comment: mL/m in/1.73m2 CKD-EPI Creatinine Equation (2020) Performed By: #### L 501.2300, L500.2500, L501.5200, L100.0100 ####[facility] [address] [place], [address] Glucose [Mass/Vol] 124 mg/dL High 70-99 [facility] Comment on above: Performed By: #### L 501.2300, L500.2500, L501.5200, L100.0100 ####[facility] [address] [place], [address] Potassium [Moles/Vol] 3.7 mmol/L Normal 3.3-5.1 [facility] Comment on above: Performed By: #### L 501.2300, L500.2500, L501.5200, L100.0100 ####[facility] [address] [place], [address] Sodium [Moles/Vol] 140 mmol/L Normal 133-145 [facility] Comment on above: Performed By: #### L 501.2300, L500.2500, L501.5200, L100.0100 ####[facility] [address] [place], [address] Urea nitrogen [Mass/Vol] 8 mg/dL Normal 4-19 [facility] Comment on above: Performed By: #### L 501.2300, L500.2500, L501.5200, L100.0100 ####[facility] [address] [place], [address] Basophil percentageOrdered B y: Eladio Carranzajaquanmadeleine on 12-26-2024 Basophils/100 WBC (Bld) 0.3 % 0-1 [facility] Bedside Glucoseon 12-26-2024 FINGERSTICK GLU 131 mg/dL High 74-106 [facility] Comment on above: Result Comment: WILDA BARROSO OF PATIENT CARE PER NURSING PROTOCOL Performed By: #### L 501.080 ####[facility] [address] [place], [address] FINGERSTICK GLU 132 mg/dL High 74-106 [facility] Comment on above: Result Comment: WILDA BARROSO OF PATIENT CARE PER NURSING PROTOCOL Performed By: #### L 501.080 ####[facility] [address] [place], [address] CBC W/Diff, Automatedon 12-02 PLT EST SLT DEC Normal ADEQ [facility] Comment on above: Performed By: #### L 501.2300, L500.2500, L501.5200, L100.0100 ####[facility] [address] [place], [address] Carbon dioxide, total [Moles /volume] in Central venous bloodOrdered By: Eladio Melendez on 12-26-2024 CO2 [Moles/Vol] 22.2 mmol/L 21.0-32.0 [facility] Chloride assayOrdered By: Magalie Melendez on 12-26-2024 Chloride [Moles/Vol] 109 mmol/L High 98-108 [facility] Eosinophil percentageOrdered By: Eladio Melendez on 12-26-2024 Eosinophils/100 WBC (Bld) 0.9 % 0-5 [facility] Erythrocyte distribution wid th ratioOrdered By: Eladio Melendez on 12-26-2024 Erythrocyte distribution width (RBC) [Ratio] 14.1 % 11.6-14.6 [facility] Erythrocyte distribution wid th standard deviationOrdered By: Eladio Melendez on 12-26-2024 Erythrocyte distribution width (RBC) [Ratio] 46.0 fl High 35.1-43.9 [facility] Glomerular filtration rate ( GFR) estimation/1.73 sq m using serum, plasma, or whole bOrdered By: Eladio Melendez on 12-26-2024 GFR/1.73 sq M.predicted among non-blacks MDRD (S/P/Bld) [Vol rate/Area] 54 mL/min/{1.73_m2} Low >60 [facility] Glucose measurement at bedsi deOrdered By: Eladio Melendez on 12-26-2024 Glucose [Mass/Vol] 131 mg/dL High 74-106 [facility] Hematocrit Auto (Bld) [Volum e fraction]Ordered By: Eladio Melendez on 12-26-2024 Hematocrit (Bld) [Volume fraction] 32.3 % Low 40-54 [facility] Hemoglobin measurementOrdere d By: Eladio Melendez on 12-26-2024 Hemoglobin (Bld) [Mass/Vol] 10.3 g/dL Low 13.0-16.5 [facility] Immature granulocytes/100 WB C Auto (Bld)Ordered By: Eladio Melendez on 12-26-2024 Immature granulocytes/100 WBC (Bld) 0.500 % 0.0-0.9 [facility] MCV (mean corpuscular volume ) determinationOrdered By: Eladio Melendez on 12-26-2024 MCV (RBC) [Entitic vol] 90.0 fL 80-94 [facility] Magnesiumon 12-26-2024 Magnesium [Mass/Vol] 1.7 mg/dL Normal 1.5-2.2 [facility] Comment on above: Performed By: #### L 501.2300, L500.2500, L501.5200, L100.0100 ####[facility] [address] [place], [place], [address] Magnesium measurement (mass/ volume)Ordered By: Eladio Melendez on 12-26-2024 Magnesium (Unsp spec) [Mass/Vol] 1.7 mg/dL 1.5-2.2 [facility] Mean corpuscular hemoglobin (MCH) determinationOrdered By: Eladio Melendez on 12-26-2024 MCH (RBC) [Entitic mass] 28.7 pg 27.0-32.0 [facility] Monocyte percentageOrdered B y: Eladio Melendez on 12-26-2024 Monocytes/100 WBC (Bld) 9.5 % 0-10 [facility] Neutrophil percentageOrdered By: Eladio Melendez on 12-26-2024 Neutrophils/100 WBC (Bld) 76.2 % High 47-70 [facility] Phosphoruson 12-26-2024 Phosphate [Mass/Vol] 2.2 mg/dL Low 2.7-4.5 [facility] Comment on above: Performed By: #### L 501.2300, L500.2500, L501.5200, L100.0100 ####[facility] [address] [place], [address] Platelet countOrdered By: Magalie Melendez on 12-26-2024 Platelets (Bld) [#/Vol] 92 10*3/uL Low 150-450 [facility] Platelet estimateOrdered By: Eladio Melendez on 12-26-2024 Platelets LM Ql (Bld) SLT DEC ADEQ [facility] Potassium measurement (mass/ volume)Ordered By: Eladio Melendez on 12-26-2024 Potassium (Unsp spec) [Mass/Vol] 3.7 mmol/L 3.3-5.1 [facility] RBC Auto (Bld) [#/Vol]Ordere d By: Eladio Melendez on 12-26-2024 RBC (Bld) [#/Vol] 3.59 10*6/uL Low 4.6-6.2 [facility] Serum creatinine measurement (mass/volume)Ordered By: Eladio Melendez on 12-26-2024 Creatinine [Mass/Vol] 1.33 mg/dL High 0.70-1.20 [facility] Serum glucose measurement (m ass/volume)Ordered By: Eladio Melendez on 12-26-2024 Glucose [Mass/Vol] 124 mg/dL High 70-99 [facility] Serum or plasma calcium francine urement (mass/volume)Ordered By: Eladio Melendez on 12-26-2024 Calcium [Mass/Vol] 8.0 mg/dL 7.6-11.0 [facility] Serum or plasma urea nitroge n measurement (mass/volume)Ordered By: Eladio Melendez on 12-26-2024 Urea nitrogen [Mass/Vol] 8 mg/dL 4-19 [facility] Sodium levelOrdered By: Fei Melendez on 12-26-2024 Sodium [Moles/Vol] 140 mmol/L 133-145 [facility] White blood cell (WBC) count Ordered By: Eladio Melendez on 12-26-2024 WBC (Bld) [#/Vol] 6.3 10*3/uL 4.4-11.0 [facility] 12 Lead EKGon 12-25-2024 12 Lead EKG Normal [facility] Basic Metabolic Profile (BMP )on 12-25-2024 BUN/CRE 6.6 RATIO Low 10-20 [facility] Comment on above: Performed By: #### L 100.0100, L500.2500, L501.2300, L501.5200 ####[facility] [address] [place], [address] Calcium [Mass/Vol] 8.3 mg/dL Normal 7.6-11.0 [facility] Comment on above: Performed By: #### L 100.0100, L500.2500, L501.2300, L501.5200 ####[facility] [address] [place], [address] Chloride [Moles/Vol] 106 mmol/L Normal 98-108 [facility] Comment on above: Performed By: #### L 100.0100, L500.2500, L501.2300, L501.5200 ####[facility] [address] [place], [address] CO2 [Moles/Vol] 19.8 mmol/L Low 21.0-32.0 [facility] Comment on above: Performed By: #### L 100.0100, L500.2500, L501.2300, L501.5200 ####[facility] [address] [place], [address] Creatinine [Mass/Vol] 1.42 mg/dL High 0.70-1.20 [facility] Comment on above: Performed By: #### L 100.0100, L500.2500, L501.2300, L501.5200 ####[facility] [address] [place], [address] ECRCL 49.25 ml/min Low 50-250 [facility] Comment on above: Performed By: #### L 100.0100, L500.2500, L501.2300, L501.5200 ####[facility] [address] [place], [address] GAP 13 Normal 5-15 [facility] Comment on above: Performed By: #### L 100.0100, L500.2500, L501.2300, L501.5200 ####[facility] [address] [place], [address] GFR/1.73 sq M.predicted among non-blacks MDRD (S/P/Bld) [Vol rate/Area] 50 mL/min/{1.73_m2} Low >60 [facility] Comment on above: Result Comment: mL/m in/1.73m2 CKD-EPI Creatinine Equation (2020) Performed By: #### L 100.0100, L500.2500, L501.2300, L501.5200 ####[facility] [address] [place], [address] Glucose [Mass/Vol] 105 mg/dL High 70-99 [facility] Comment on above: Performed By: #### L 100.0100, L500.2500, L501.2300, L501.5200 ####[facility] [address] [place], [address] Potassium [Moles/Vol] 3.4 mmol/L Normal 3.3-5.1 [facility] Comment on above: Performed By: #### L 100.0100, L500.2500, L501.2300, L501.5200 ####[facility] [address] [place], [address] Sodium [Moles/Vol] 139 mmol/L Normal 133-145 [facility] Comment on above: Performed By: #### L 100.0100, L500.2500, L501.2300, L501.5200 ####[facility] [address] [place], [address] Urea nitrogen [Mass/Vol] 9 mg/dL Normal 4-19 [facility] Comment on above: Performed By: #### L 100.0100, L500.2500, L501.2300, L501.5200 ####[facility] [address] [place], [address] Bedside Glucoseon 12-25-2024 FINGERSTICK GLU 140 mg/dL High 74-106 [facility] Comment on above: Result Comment: WILDA GEMENT OF PATIENT CARE PER NURSING PROTOCOL Performed By: #### L 501.080 ####[facility] [address] [place], [address] FINGERSTICK GLU 81 mg/dL Normal 74-106 [facility] Comment on above: Result Comment: WILDA GEMENT OF PATIENT CARE PER NURSING PROTOCOL Performed By: #### L 501.080 ####[facility] [address] [place], [address] FINGERSTICK GLU 115 mg/dL High 74-106 [facility] Comment on above: Result Comment: WILDA GEMENT OF PATIENT CARE PER NURSING PROTOCOL Performed By: #### L 501.080 ####[facility] [address] [place], [address] FINGERSTICK GLU 102 mg/dL Normal 74-106 [facility] Comment on above: Result Comment: WILDA GEMENT OF PATIENT CARE PER NURSING PROTOCOL Performed By: #### L 501.080 ####[facility] [address] [place], [address] CBC W/Diff, Automatedon 08-2 Absolute Lymph 1.00 X10 3/uL Normal 0.83-4.51 [facility] Comment on above: Performed By: #### L 100.0100, L500.2500, L501.2300, L501.5200 ####[facility] [address] [place], [address] Absolute Neut 5.3 X10 3/uL Normal 2.0-7.7 [facility] Comment on above: Performed By: #### L 100.0100, L500.2500, L501.2300, L501.5200 ####[facility] [address] [place], [address] Basophils/100 WBC (Bld) 0.3 % Normal 0-1 [facility] Comment on above: Performed By: #### L 100.0100, L500.2500, L501.2300, L501.5200 ####[facility] [address] [place], [address] Eosinophils/100 WBC (Bld) 1.1 % Normal 0-5 [facility] Comment on above: Performed By: #### L 100.0100, L500.2500, L501.2300, L501.5200 ####[facility] [address] [place], [address] Erythrocyte distribution width (RBC) [Ratio] 14.2 % Normal 11.6-14.6 [facility] Comment on above: Performed By: #### L 100.0100, L500.2500, L501.2300, L501.5200 ####[facility] [address] [place], [address] Hematocrit (Bld) [Volume fraction] 30.7 % Low 40-54 [facility] Comment on above: Performed By: #### L 100.0100, L500.2500, L501.2300, L501.5200 ####[facility] [address] [place], [address] Hemoglobin (Bld) [Mass/Vol] 10.2 g/dL Low 13.0-16.5 [facility] Comment on above: Performed By: #### L 100.0100, L500.2500, L501.2300, L501.5200 ####[facility] [address] [place], [address] IG% 0.300 Normal 0.0-0.9 [facility] Comment on above: Result Comment: IG% - Immature Granulocytes (promyelocytes, myelocytes andmetamyelocytes) > 1% indicates that a LEFT SHIFT is Present. Performed By: #### L 100.0100, L500.2500, L501.2300, L501.5200 ####[facility] [address] [place], [address] Lymphocytes/100 WBC (Bld) 14.2 % Low 19-41 [facility] Comment on above: Performed By: #### L 100.0100, L500.2500, L501.2300, L501.5200 ####[facility] [address] [place], [address] MCH (RBC) [Entitic mass] 29.0 pg Normal 27.0-32.0 [facility] Comment on above: Performed By: #### L 100.0100, L500.2500, L501.2300, L501.5200 ####[facility] [address] [place], [address] MCHC (RBC) [Mass/Vol] 33.2 g/dL Normal 32-36 [facility] Comment on above: Performed By: #### L 100.0100, L500.2500, L501.2300, L501.5200 ####[facility] [address] [place], [address] MCV (RBC) [Entitic vol] 87.2 fL Normal 80-94 [facility] Comment on above: Performed By: #### L 100.0100, L500.2500, L501.2300, L501.5200 ####[facility] [address] [place], [address] Monocytes/100 WBC (Bld) 8.4 % Normal 0-10 [facility] Comment on above: Performed By: #### L 100.0100, L500.2500, L501.2300, L501.5200 ####[facility] [facility] [address] [place], [address] Neutrophils/100 WBC (Bld) 75.7 % High 47-70 [facility] Comment on above: Performed By: #### L 100.0100, L500.2500, L501.2300, L501.5200 ####[facility] [address] [place], [address] Nucleated RBC (Bld) [#/Vol] 0 10*3/uL Normal 0-5 [facility] Comment on above: Performed By: #### L 100.0100, L500.2500, L501.2300, L501.5200 ####[facility] [address] [place], [address] Platelet mean volume (Bld) [Entitic vol] 12.9 fL High 6.2-12.0 [facility] Comment on above: Performed By: #### L 100.0100, L500.2500, L501.2300, L501.5200 ####[facility] [address] [place], [address] Platelets (Bld) [#/Vol] 110 10*3/uL Low 150-450 [facility] Comment on above: Performed By: #### L 100.0100, L500.2500, L501.2300, L501.5200 ####[facility] [address] [place], [address] RBC (Bld) [#/Vol] 3.52 10*6/uL Low 4.6-6.2 [facility] Comment on above: Performed By: #### L 100.0100, L500.2500, L501.2300, L501.5200 ####[facility] [address] [place], [address] RDW SD 44.7 fl High 35.1-43.9 [facility] Comment on above: Performed By: #### L 100.0100, L500.2500, L501.2300, L501.5200 ####[facility] [address] [place], [address] WBC (Bld) [#/Vol] 7.0 10*3/uL Normal 4.4-11.0 [facility] Comment on above: Performed By: #### L 100.0100, L500.2500, L501.2300, L501.5200 ####[facility] [address] [place], [address] Colonoscopy Reporton 025 Colonoscopy Report Normal [facility] EGD Reporton 12-25-2024 EGD Report Normal [facility] Immunohistochemical Stainson 12-25-2024 Immunohistochemical Stains Normal [facility] Comment on above: Performed By: #### P IMHI ####[facility] [address] [place], [address] MR/CON.PCM.GIon 12-25-2024 MR/CON.PCM.GI Normal [facility] MR/OP.PROVATon 12-25-2024 MR/OP.PROVAT Normal [facility] MR/OP.PROVAT Normal [facility] MR/POSTOP.ANEon 12-25-2024 MR/POSTOP.ANE Normal [facility] MR/FMVEVAVG5cq 12-25-2024 MR/POSTOPAN2 Normal [facility] Magnesiumon 12-25-2024 Magnesium [Mass/Vol] 1.5 mg/dL Normal 1.5-2.2 [facility] Comment on above: Performed By: #### L 100.0100, L500.2500, L501.2300, L501.5200 ####[facility] [address] [place], [address] Phosphoruson 12-25-2024 Phosphate [Mass/Vol] 2.0 mg/dL Low 2.7-4.5 [facility] Comment on above: Performed By: #### L 100.0100, L500.2500, L501.2300, L501.5200 ####[facility] [address] [place], [address] Activated partial thrombopla stin time (aPTT) in platelet poor plasma by coagulation aOrdered By: Andrae Kennedy on 12-24-2024 aPTT Coag (PPP) [Time] 27.6 s 24.1-36.2 [facility] Basic Metabolic Profile (BMP )on 12-24-2024 BUN/CRE 9.9 RATIO Low 10-20 [facility] Comment on above: Performed By: #### M 100.7900, L500.2500, L503.6005, L300.4310, L100.0100, L300.3900 ####[facility] [address] [place], [address] Calcium [Mass/Vol] 8.4 mg/dL Normal 7.6-11.0 [facility] Comment on above: Performed By: #### M 100.7900, L500.2500, L503.6005, L300.4310, L100.0100, L300.3900 ####[facility] [address] [place], [address] Chloride [Moles/Vol] 106 mmol/L Normal 98-108 [facility] Comment on above: Performed By: #### M 100.7900, L500.2500, L503.6005, L300.4310, L100.0100, L300.3900 ####[facility] [address] [place], [address] CO2 [Moles/Vol] 18.1 mmol/L Low 21.0-32.0 [facility] Comment on above: Performed By: #### M 100.7900, L500.2500, L503.6005, L300.4310, L100.0100, L300.3900 ####[facility] [address] [place], [address] Creatinine [Mass/Vol] 1.67 mg/dL High 0.70-1.20 [facility] Comment on above: Performed By: #### M 100.7900, L500.2500, L503.6005, L300.4310, L100.0100, L300.3900 ####[facility] [address] [place], [place], [phone] ECRCL 41.59 ml/min Low 50-250 [facility] Comment on above: Performed By: #### M 100.7900, L500.2500, L503.6005, L300.4310, L100.0100, L300.3900 ####[facility] [address] [place], [place], [phone] Normal 5-15 [facility] Comment on above: Performed By: #### M 100.7900, L500.2500, L503.6005, L300.4310, L100.0100, L300.3900 ####[facility] [address] [place], [address] GFR/1.73 sq M.predicted among non-blacks MDRD (S/P/Bld) [Vol rate/Area] 41 mL/min/{1.73_m2} Low >60 [facility] Comment on above: Result Comment: mL/m in/1.73m2 CKD-EPI Creatinine Equation (2020) Performed By: #### M 100.7900, L500.2500, L503.6005, L300.4310, L100.0100, L300.3900 ####[facility] [address] [place], [address] Glucose [Mass/Vol] 125 mg/dL High 70-99 [facility] Comment on above: Performed By: #### M 100.7900, L500.2500, L503.6005, L300.4310, L100.0100, L300.3900 ####[facility] [address] [place], [address] Potassium [Moles/Vol] 4.3 mmol/L Normal 3.3-5.1 [facility] Comment on above: Performed By: #### M 100.7900, L500.2500, L503.6005, L300.4310, L100.0100, L300.3900 ####[facility] [address] [place], [address] Sodium [Moles/Vol] 139 mmol/L Normal 133-145 [facility] Comment on above: Performed By: #### M 100.7900, L500.2500, L503.6005, L300.4310, L100.0100, L300.3900 ####[facility] [address] [place], [address] Urea nitrogen [Mass/Vol] 17 mg/dL Normal 4-19 [facility] Comment on above: Performed By: #### M 100.7900, L500.2500, L503.6005, L300.4310, L100.0100, L300.3900 ####[facility] [address] [place], [address] Bedside Glucoseon 12-24-2024 FINGERSTICK GLU 107 mg/dL High 74-106 [facility] Comment on above: Result Comment: WILDA BARROSO OF PATIENT CARE PER NURSING PROTOCOL Performed By: #### L 501.080 ####[facility] [address] [place], [address] FINGERSTICK GLU 96 mg/dL Normal 74-106 [facility] Comment on above: Result Comment: WILDA GEMENT OF PATIENT CARE PER NURSING PROTOCOL Performed By: #### L 501.080 ####[facility] [address] [place], [address] FINGERSTICK GLU 152 mg/dL High 74-106 [facility] Comment on above: Result Comment: WILDA GEMENT OF PATIENT CARE PER NURSING PROTOCOL Performed By: #### L 501.080 ####[facility] [address] [place], [address] FINGERSTICK GLU 112 mg/dL High 74-106 [facility] Comment on above: Result Comment: WILDA GEMENT OF PATIENT CARE PER NURSING PROTOCOL Performed By: #### L 501.080 ####[facility] [address] [place], [address] Bilirubin, totalOrdered By: Alka Leo on 12-24-2024 Bilirubin [Mass/Vol] 0.53 mg/dL Normal 0.00-1.30 [facility] Comment on above: Performed By: #### L 500.4050 ####[facility] [address] [place], [address] CBC W/Diff, Automatedon 12-02 Absolute Lymph 1.09 X10 3/uL Normal 0.83-4.51 [facility] Comment on above: Performed By: #### M 100.7900, L500.2500, L503.6005, L300.4310, L100.0100, L300.3900 ####[facility] [address] [place], [address] Absolute Neut 6.9 X10 3/uL Normal 2.0-7.7 [facility] Comment on above: Performed By: #### M 100.7900, L500.2500, L503.6005, L300.4310, L100.0100, L300.3900 ####[facility] [address] [place], [address] IG% 0.300 Normal 0.0-0.9 [facility] Comment on above: Result Comment: IG% - Immature Granulocytes (promyelocytes, myelocytes andmetamyelocytes) > 1% indicates that a LEFT SHIFT is Present. Performed By: #### M 100.7900, L500.2500, L503.6005, L300.4310, L100.0100, L300.3900 ####[facility] [address] [place], [address] Nucleated RBC (Bld) [#/Vol] 0 10*3/uL Normal 0-5 [facility] Comment on above: Performed By: #### M 100.7900, L500.2500, L503.6005, L300.4310, L100.0100, L300.3900 ####[facility] [address] [place], [address] Basophils/100 WBC (Bld) 0.2 % Normal 0-1 [facility] Comment on above: Performed By: #### M 100.7900, L500.2500, L503.6005, L300.4310, L100.0100, L300.3900 ####[facility] [address] [place], [address] Eosinophils/100 WBC (Bld) 0.8 % Normal 0-5 [facility] Comment on above: Performed By: #### M 100.7900, L500.2500, L503.6005, L300.4310, L100.0100, L300.3900 ####[facility] [address] [place], [address] Erythrocyte distribution width (RBC) [Ratio] 14.2 % Normal 11.6-14.6 [facility] Comment on above: Performed By: #### M 100.7900, L500.2500, L503.6005, L300.4310, L100.0100, L300.3900 ####[facility] [address] [place], [address] Hematocrit (Bld) [Volume fraction] 35.7 % Low 40-54 [facility] Comment on above: Performed By: #### M 100.7900, L500.2500, L503.6005, L300.4310, L100.0100, L300.3900 ####[facility] [address] [place], [address] Hemoglobin (Bld) [Mass/Vol] 11.8 g/dL Low 13.0-16.5 [facility] Comment on above: Performed By: #### M 100.7900, L500.2500, L503.6005, L300.4310, L100.0100, L300.3900 ####[facility] [address] [place], [address] Lymphocytes/100 WBC (Bld) 12.2 % Low 19-41 [facility] Comment on above: Performed By: #### M 100.7900, L500.2500, L503.6005, L300.4310, L100.0100, L300.3900 ####[facility] [address] [place], [address] MCH (RBC) [Entitic mass] 29.6 pg Normal 27.0-32.0 [facility] Comment on above: Performed By: #### M 100.7900, L500.2500, L503.6005, L300.4310, L100.0100, L300.3900 ####[facility] [address] [place], [address] MCHC (RBC) [Mass/Vol] 33.1 g/dL Normal 32-36 [facility] Comment on above: Performed By: #### M 100.7900, L500.2500, L503.6005, L300.4310, L100.0100, L300.3900 ####[facility] [address] [place], [address] MCV (RBC) [Entitic vol] 89.5 fL Normal 80-94 [facility] Comment on above: Performed By: #### M 100.7900, L500.2500, L503.6005, L300.4310, L100.0100, L300.3900 ####[facility] [address] [place], [address] Monocytes/100 WBC (Bld) 9.1 % Normal 0-10 [facility] Comment on above: Performed By: #### M 100.7900, L500.2500, L503.6005, L300.4310, L100.0100, L300.3900 ####[facility] [address] [place], [address] Neutrophils/100 WBC (Bld) 77.4 % High 47-70 [facility] Comment on above: Performed By: #### M 100.7900, L500.2500, L503.6005, L300.4310, L100.0100, L300.3900 ####[facility] [address] [place], [address] Platelet mean volume (Bld) [Entitic vol] 12.9 fL High 6.2-12.0 [facility] Comment on above: Performed By: #### M 100.7900, L500.2500, L503.6005, L300.4310, L100.0100, L300.3900 ####[facility] [address] [place], [address] Platelets (Bld) [#/Vol] 139 10*3/uL Low 150-450 [facility] Comment on above: Performed By: #### M 100.7900, L500.2500, L503.6005, L300.4310, L100.0100, L300.3900 ####[facility] [address] [place], [address] RBC (Bld) [#/Vol] 3.99 10*6/uL Low 4.6-6.2 [facility] Comment on above: Performed By: #### M 100.7900, L500.2500, L503.6005, L300.4310, L100.0100, L300.3900 ####[facility] [address] [place], [address] RDW SD 45.5 fl High 35.1-43.9 [facility] Comment on above: Performed By: #### M 100.7900, L500.2500, L503.6005, L300.4310, L100.0100, L300.3900 ####[facility] [address] [place], [address] WBC (Bld) [#/Vol] 8.9 10*3/uL Normal 4.4-11.0 [facility] Comment on above: Performed By: #### M 100.7900, L500.2500, L503.6005, L300.4310, L100.0100, L300.3900 ####[facility] [address] [place], [address] Comprehensive Metabolic Prof ilon 12-24-2024 ALK PHOS 136 U/L High 40-129 [facility] Comment on above: Performed By: #### L 500.4050 ####[facility] [address] [place], [address] AST [Catalytic activity/Vol] 24 U/L Normal <=37 [facility] Comment on above: Performed By: #### L 500.4050 ####[facility] [address] [place], [address] BUN/CRE 8.9 RATIO Low 10-20 [facility] Comment on above: Performed By: #### L 500.4050 ####[facility] [address] [place], [address] Calcium [Mass/Vol] 8.5 mg/dL Normal 7.6-11.0 [facility] Comment on above: Performed By: #### L 500.4050 ####[facility] [address] [place], [address] Chloride [Moles/Vol] 106 mmol/L Normal 98-108 [facility] Comment on above: Performed By: #### L 500.4050 ####[facility] [address] [place], [address] CO2 [Moles/Vol] 16.6 mmol/L Low 21.0-32.0 [facility] Comment on above: Performed By: #### L 500.4050 ####[facility] [address] [place], [address] Creatinine [Mass/Vol] 1.62 mg/dL High 0.70-1.20 [facility] Comment on above: Performed By: #### L 500.4050 ####[facility] [address] [place], [address] ECRCL 42.41 ml/min Low 50-250 [facility] Comment on above: Performed By: #### L 500.4050 ####[facility] [address] [place], [address] GAP 16 High 5-15 [facility] Comment on above: Performed By: #### L 500.4050 ####[facility] [address] [place], [address] GFR/1.73 sq M.predicted among non-blacks MDRD (S/P/Bld) [Vol rate/Area] 43 mL/min/{1.73_m2} Low >60 [facility] Comment on above: Result Comment: mL/m in/1.73m2 CKD-EPI Creatinine Equation (2020) Performed By: #### L 500.4050 ####[facility] [address] [place], [address] Glucose [Mass/Vol] 127 mg/dL High 70-99 [facility] Comment on above: Performed By: #### L 500.4050 ####[facility] [address] [place], [address] Potassium [Moles/Vol] 4.0 mmol/L Normal 3.3-5.1 [facility] Comment on above: Performed By: #### L 500.4050 ####[facility] [address] [place], [address] Sodium [Moles/Vol] 138 mmol/L Normal 133-145 [facility] Comment on above: Performed By: #### L 500.4050 ####[facility] [address] [place], [address] T PROT 6.6 g/dL Normal 5.9-8.4 [facility] Comment on above: Performed By: #### L 500.4050 ####[facility] [address] [place], [address] Urea nitrogen [Mass/Vol] 14 mg/dL Normal 4-19 [facility] Comment on above: Performed By: #### L 500.4050 ####[facility] [address] [place], [address] Emergency Department Summary on 12-24-2024 Emergency Department Summary Normal [facility] H AND P Exam - Hospitaliston 12-24-2024 H&P Exam - Hospitalist Normal [facility] HH, Hemoglobin AND Hematocri ton 12-24-2024 Hematocrit (Bld) [Volume fraction] 32.2 % Low 40-54 [facility] Comment on above: Performed By: #### L 100.0600 ####[facility] [address] [place], [address] Hemoglobin (Bld) [Mass/Vol] 10.6 g/dL Low 13.0-16.5 [facility] Comment on above: Performed By: #### L 100.0600 ####[facility] [address] [place], [address] Hematocrit (Bld) [Volume fraction] 32.2 % Low 40-54 [facility] Comment on above: Performed By: #### L 100.0600 ####[facility] [address] [place], [address] Hemoglobin (Bld) [Mass/Vol] 10.5 g/dL Low 13.0-16.5 [facility] Comment on above: Performed By: #### L 100.0600 ####[facility] [address] [place], [address] Hematocrit (Bld) [Volume fraction] 38.7 % Low 40-54 [facility] Comment on above: Performed By: #### L 100.0600 ####[facility] [address] [place], [address] Hemoglobin (Bld) [Mass/Vol] 12.3 g/dL Low 13.0-16.5 [facility] Comment on above: Performed By: #### L 100.0600 ####[facility] [address] [place], [address] Hematocrit (Bld) [Volume fraction] 34.5 % Low 40-54 [facility] Comment on above: Performed By: #### L 100.0600 ####[facility] [address] [place], [address] Hemoglobin (Bld) [Mass/Vol] 11.2 g/dL Low 13.0-16.5 [facility] Comment on above: Performed By: #### L 100.0600 ####[facility] [address] [place], [place], [address] Lactic Acidon 12-24-2024 Lactate [Moles/Vol] 1.7 mmol/L Normal 0.0-2.0 [facility] Comment on above: Performed By: #### L 503.6005 ####[facility] [address] [place], [address] Lactate [Moles/Vol] 2.1 mmol/L Invalid Interpretation Code 0.0-2.0 [facility] Comment on above: Order Comment: Y Result Comment: Crit ical Result(s) Called at: 0049 by:??NIKA RAMESH. Results read back by same. Performed By: #### M 100.7900, L500.2500, L503.6005, L300.4310, L100.0100, L300.3900 ####[facility] [address] [place], [place], [address] Magnesiumon 12-24-2024 Magnesium [Mass/Vol] 1.7 mg/dL Normal 1.5-2.2 [facility] Comment on above: Order Comment: Comme nts: may add to ED labs Performed By: #### L 501.5200 ####[facility] [address] [place], [address] No Panel InformationOrdered By: Alka Leo on 12-24-2024 24 U/L <38 [facility] Partial Thromboplast Timeon 12-24-2024 aPTT Coag (Bld) [Time] 27.6 s Normal 24.1-36.2 [facility] Comment on above: Performed By: #### M 100.7900, L500.2500, L503.6005, L300.4310, L100.0100, L300.3900 ####[facility] [address] [place], [address] Prothrombin Time w/INRon INR Coag (PPP) [Relative time] 1.0 {INR} Normal [facility] Comment on above: Performed By: #### M 100.7900, L500.2500, L503.6005, L300.4310, L100.0100, L300.3900 ####[facility] [address] [place], [address] Prothrombin timeOrdered By: Andrae Kennedy on 12-24-2024 PT Coag (PPP) [Time] 13.5 s Normal 11.7-14.9 [facility] Comment on above: Performed By: #### M 100.7900, L500.2500, L503.6005, L300.4310, L100.0100, L300.3900 ####[facility] [address] [place], [address] Serum globulin measurementOr dered By: Alka Leo on 12-24-2024 Globulin (S) [Mass/Vol] 3.1 g/dL Normal 2.2-4.2 [facility] Comment on above: Performed By: #### L 500.4050 ####[facility] [address] [place], [address] Serum or plasma alanine guerrero otransferase (ALT) measurementOrdered By: Alka Leo on 12-24-2024 ALT [Catalytic activity/Vol] 26 U/L Normal <=46 [facility] Comment on above: Performed By: #### L 500.4050 ####[facility] [address] [place], [address] Serum or plasma albumin francine urement (mass/volume)Ordered By: Alka Leo on 12-24-2024 Albumin [Mass/Vol] 3.5 g/dL Normal 3.4-4.8 [facility] Comment on above: Performed By: #### L 500.4050 ####[facility] [address] [place], [place], [address] Serum or plasma albumin/glob ulin mass ratioOrdered By: Alka Ahmet on 12-24-2024 Albumin/Globulin [Mass ratio] 1.1 {ratio} Normal 0.9-2.4 [facility] Comment on above: Performed By: #### L 500.4050 ####[facility] [address] [place], [place], [address] Serum or plasma alkaline bell sphatase measurementOrdered By: Alka Leo on 12-24-2024 ALP [Catalytic activity/Vol] 136 U/L High 40-129 [facility] Stool Occult Blood iFOBon STOB Normal [facility] Comment on above: Performed By: #### M 100.7900, L500.2500, L503.6005, L300.4310, L100.0100, L300.3900 ####[facility] [address] [place], [place], [address] Stool gastrointestinal hemog lobin detection by immunologic methodOrdered By: Andrae Kennedy on 12-24-2024 Lower GI hemoglobin IA Ql (Stl) Positive Abnormal [facility] Total proteinOrdered By: Sophy Leo on 12-24-2024 Protein [Mass/Vol] 6.6 g/dL 5.9-8.4 [facility] Absolute lymphocyte countOrd ered By: Boyd Rock on 12-21-2024 Lymphocytes Auto (Unsp spec) [#/Vol] 0.76 10*3/uL Low 0.83-4.51 [facility] Anion gap in Serum or Plasma Ordered By: Boyd Rock on 12-21-2024 Anion gap [Moles/Vol] 17 mmol/L High 5-15 [facility] Automated lymphocyte count a s percentage of total leukocytesOrdered By: Boyd Rock on 12-21-2024 Lymphocytes/100 WBC Auto (Unsp spec) 8.7 % Low 19-41 [facility] BUN/creatinine ratioOrdered By: Boyd Rock on 12-21-2024 Urea nitrogen/Creatinine [Mass ratio] 20.6 mg/mg High 10-20 [facility] Basophil percentageOrdered B y: Boyd Rock on 12-21-2024 Basophils/100 WBC (Bld) 0.2 % 0-1 [facility] Carbon dioxide, total [Moles /volume] in Central venous bloodOrdered By: Susannagarrytesha Garrymiarmand on 12-21-2024 CO2 [Moles/Vol] 16.7 mmol/L Low 21.0-32.0 [facility] Chloride assayOrdered By: Susanna meenabrittni Castañedamiarmand on 12-21-2024 Chloride [Moles/Vol] 101 mmol/L 98-108 [facility] Eosinophil percentageOrdered By: Boyd Garryliane on 12-21-2024 Eosinophils/100 WBC (Bld) 0.2 % 0-5 [facility] Erythrocyte distribution wid th ratioOrdered By: Susannagarrytesha Garrymiarmand on 12-21-2024 Erythrocyte distribution width (RBC) [Ratio] 13.9 % 11.6-14.6 [facility] Erythrocyte distribution wid th standard deviationOrdered By: Boyd Garrymiarmand on 12-21-2024 Erythrocyte distribution width (RBC) [Ratio] 44.6 fl High 35.1-43.9 [facility] Glomerular filtration rate ( GFR) estimation/1.73 sq m using serum, plasma, or whole bOrdered By: Susannagarrytesha Garrymiarmand on 12-21-2024 GFR/1.73 sq M.predicted among non-blacks MDRD (S/P/Bld) [Vol rate/Area] 26 mL/min/{1.73_m2} Low >60 [facility] Hematocrit Auto (Bld) [Volum e fraction]Ordered By: Boyd Rock on 12-21-2024 Hematocrit (Bld) [Volume fraction] 37.3 % Low 40-54 [facility] Hemoglobin measurementOrdere d By: Lupeabbeybrittni Castañedamiarmand on 12-21-2024 Hemoglobin (Bld) [Mass/Vol] 12.2 g/dL Low 13.0-16.5 [facility] Immature granulocytes/100 WB C Auto (Bld)Ordered By: Boyd Rock on 12-21-2024 Immature granulocytes/100 WBC (Bld) 0.600 % 0.0-0.9 [facility] MCV (mean corpuscular volume ) determinationOrdered By: Boyd Rock on 12-21-2024 MCV (RBC) [Entitic vol] 87.8 fL 80-94 [facility] Mean corpuscular hemoglobin (MCH) determinationOrdered By: Boyd Rock on 12-21-2024 MCH (RBC) [Entitic mass] 28.7 pg 27.0-32.0 [facility] Monocyte percentageOrdered B y: Boyd Rock on 12-21-2024 Monocytes/100 WBC (Bld) 10.6 % High 0-10 [facility] Neutrophil percentageOrdered By: Boyd Rock on 12-21-2024 Neutrophils/100 WBC (Bld) 79.7 % High 47-70 [facility] Platelet countOrdered By: Susanna Rock on 12-21-2024 Platelets (Bld) [#/Vol] 145 10*3/uL Low 150-450 [facility] Potassium measurement (mass/ volume)Ordered By: Boyd Garrymiarmand on 12-21-2024 Potassium (Unsp spec) [Mass/Vol] 4.2 mmol/L 3.3-5.1 [facility] RBC Auto (Bld) [#/Vol]Ordere d By: Boyd Rock on 12-21-2024 RBC (Bld) [#/Vol] 4.25 10*6/uL Low 4.6-6.2 [facility] Serum creatinine measurement (mass/volume)Ordered By: Susannaandrés Castañedamiarmand on 12-21-2024 Creatinine [Mass/Vol] 2.49 mg/dL High 0.70-1.20 [facility] Serum glucose measurement (m ass/volume)Ordered By: Susannagarryabbeybrittni Castañedamiarmand on 12-21-2024 Glucose [Mass/Vol] 134 mg/dL High 70-99 [facility] Serum or plasma calcium francine urement (mass/volume)Ordered By: Susannagarryabbeybrittni Castañedamiarmand on 12-21-2024 Calcium [Mass/Vol] 9.0 mg/dL 7.6-11.0 [facility] Serum or plasma urea nitroge n measurement (mass/volume)Ordered By: Boyd Rock on 12-21-2024 Urea nitrogen [Mass/Vol] 51 mg/dL High 4-19 [facility] Sodium levelOrdered By: Susannagarry parkinson Shweta on 12-21-2024 Sodium [Moles/Vol] 134 mmol/L 133-145 [facility] T4 freeOrdered By: Lupeabbeybrittni Castañedamiarmand on 12-21-2024 Free T4 [Mass/Vol] 1.20 ng/dL 0.76-1.46 [facility] TSH DL <= 0.005 mIU/L QnOrde red By: Lupeabbeybrittni Castañedamiarmand on 12-21-2024 TSH Qn 5.250 uIU/mL High 0.300-4.20 0 [facility] Vitamin B12 ser/plasOrdered By: Boyd Castañedamiarmand on 12-21-2024 Cobalamin (Vitamin B12) [Mass/Vol] 2000 pg/mL High 180-914 [facility] White blood cell (WBC) count Ordered By: Boyd Rock on 12-21-2024 WBC (Bld) [#/Vol] 8.7 10*3/uL 4.4-11.0 [facility] 12 Lead EKGon 12-20-2024 12 Lead EKG Normal [facility] Absolute lymphocyte countOrd ered By: Jody Servin on 12-20-2024 Lymphocytes Auto (Unsp spec) [#/Vol] 1.39 10*3/uL 0.83-4.51 [facility] Absolute lymphocyte countOrd ered By: Boyd Rock on 12-20-2024 Lymphocytes Auto (Unsp spec) [#/Vol] 1.09 10*3/uL 0.83-4.51 [facility] Activated partial thrombopla stin time (aPTT) in platelet poor plasma by coagulation aOrdered By: Jody Servin on 12-20-2024 aPTT Coag (PPP) [Time] 27.6 s 24.1-36.2 [facility] Anion gap in Serum or Plasma Ordered By: Jody eSrvin on 12-20-2024 Anion gap [Moles/Vol] 19 mmol/L High 09-14 [facility] Anion gap in Serum or Plasma Ordered By: Boyd Rock on 12-20-2024 Anion gap [Moles/Vol] 18 mmol/L High 09-14 [facility] Automated lymphocyte count a s percentage of total leukocytesOrdered By: Jody Servin on 12-20-2024 Lymphocytes/100 WBC Auto (Unsp spec) 11.8 % Low [facility] Automated lymphocyte count a s percentage of total leukocytesOrdered By: Efandrés Videse on 12-20-2024 Lymphocytes/100 WBC Auto (Unsp spec) 10.5 % Low [facility] BUN/creatinine ratioOrdered By: Jody Servin on 12-20-2024 Urea nitrogen/Creatinine [Mass ratio] 19.5 mg/mg 02-19 [facility] BUN/creatinine ratioOrdered By: Boyd Videse on 12-20-2024 Urea nitrogen/Creatinine [Mass ratio] 20.4 mg/mg High 02-19 [facility] Basophil percentageOrdered B y: Jody Servin on 12-20-2024 Basophils/100 WBC (Bld) 0.2 % 0- [facility] Basophil percentageOrdered B y: Efandrés Videse on 12-20-2024 Basophils/100 WBC (Bld) 0.3 % 0- [facility] Bilirubin, totalOrdered By: Jody Servin on 12-20-2024 Bilirubin [Mass/Vol] 1.15 mg/dL 0.00-1.30 [facility] Bilirubin, totalOrdered By: Efandrés Videse on 12-20-2024 Bilirubin [Mass/Vol] 1.08 mg/dL 0.00-1.30 [facility] CBC W/Diff, Automatedon 12-02 Absolute Lymph 1.39 X10 3/uL Normal 0.83-4.51 [facility] Comment on above: Performed By: #### L 300.3900, L300.4310, L100.0100 ####[facility] [address] [place], [address] Absolute Neut 9.0 X10 3/uL High 2.0-7.7 [facility] Comment on above: Performed By: #### L 300.3900, L300.4310, L100.0100 ####[facility] [address] [place], [address] Basophils/100 WBC (Bld) 0.2 % Normal 0-1 [facility] Comment on above: Performed By: #### L 300.3900, L300.4310, L100.0100 ####[facility] [address] [place], [address] Eosinophils/100 WBC (Bld) 0.1 % Normal 0-5 [facility] Comment on above: Performed By: #### L 300.3900, L300.4310, L100.0100 ####[facility] [address] [place], [address] Erythrocyte distribution width (RBC) [Ratio] 13.8 % Normal 11.6-14.6 [facility] Comment on above: Performed By: #### L 300.3900, L300.4310, L100.0100 ####[facility] [address] [place], [address] Hematocrit (Bld) [Volume fraction] 41.8 % Normal 40-54 [facility] Comment on above: Performed By: #### L 300.3900, L300.4310, L100.0100 ####[facility] [address] [place], [address] Hemoglobin (Bld) [Mass/Vol] 13.8 g/dL Normal 13.0-16.5 [facility] Comment on above: Performed By: #### L 300.3900, L300.4310, L100.0100 ####[facility] [address] [place], [address] IG% 0.500 Normal 0.0-0.9 [facility] Comment on above: Result Comment: IG% - Immature Granulocytes (promyelocytes, myelocytes andmetamyelocytes) > 1% indicates that a LEFT SHIFT is Present. Performed By: #### L 300.3900, L300.4310, L100.0100 ####[facility] [address] [place], [address] Lymphocytes/100 WBC (Bld) 11.8 % Low 19-41 [facility] Comment on above: Performed By: #### L 300.3900, L300.4310, L100.0100 ####[facility] [address] [place], [address] MCH (RBC) [Entitic mass] 28.6 pg Normal 27.0-32.0 [facility] Comment on above: Performed By: #### L 300.3900, L300.4310, L100.0100 ####[facility] [address] [place], [address] MCHC (RBC) [Mass/Vol] 33.0 g/dL Normal 32-36 [facility] Comment on above: Performed By: #### L 300.3900, L300.4310, L100.0100 ####[facility] [address] [place], [address] MCV (RBC) [Entitic vol] 86.7 fL Normal 80-94 [facility] Comment on above: Performed By: #### L 300.3900, L300.4310, L100.0100 ####[facility] [address] [place], [address] Monocytes/100 WBC (Bld) 11.5 % High 0-10 [facility] Comment on above: Performed By: #### L 300.3900, L300.4310, L100.0100 ####[facility] [address] [place], [address] Neutrophils/100 WBC (Bld) 75.9 % High 47-70 [facility] Comment on above: Performed By: #### L 300.3900, L300.4310, L100.0100 ####[facility] [address] [place], [address] Nucleated RBC (Bld) [#/Vol] 0 10*3/uL Normal 0-5 [facility] Comment on above: Performed By: #### L 300.3900, L300.4310, L100.0100 ####[facility] [address] [place], [address] Platelet mean volume (Bld) [Entitic vol] 13.3 fL High 6.2-12.0 [facility] Comment on above: Performed By: #### L 300.3900, L300.4310, L100.0100 ####[facility] [address] [place], [address] Platelets (Bld) [#/Vol] 231 10*3/uL Normal 150-450 [facility] Comment on above: Performed By: #### L 300.3900, L300.4310, L100.0100 ####[facility] [address] [place], [address] RBC (Bld) [#/Vol] 4.82 10*6/uL Normal 4.6-6.2 [facility] Comment on above: Performed By: #### L 300.3900, L300.4310, L100.0100 ####[facility] [address] [place], [address] RDW SD 43.2 fl Normal 35.1-43.9 [facility] Comment on above: Performed By: #### L 300.3900, L300.4310, L100.0100 ####[facility] [address] [place], [address] WBC (Bld) [#/Vol] 11.8 10*3/uL High 4.4-11.0 [facility] Comment on above: Performed By: #### L 300.3900, L300.4310, L100.0100 ####[facility] [address] [place], [place], [id number] CTA Abd/Pelvis W/WO Contrast on 12-20-2024 CTA Abd/Pelvis W/WO Contrast Normal [facility] Carbon dioxide, total [Moles /volume] in Central venous bloodOrdered By: Jody Servin on 12-20-2024 CO2 [Moles/Vol] 18.5 mmol/L Low 21.0-32.0 [facility] Carbon dioxide, total [Moles /volume] in Central venous bloodOrdered By: Boyd Rock on 12-20-2024 CO2 [Moles/Vol] 18.6 mmol/L Low 21.0-32.0 [facility] Chest PA and Lateralon 12-20 Chest PA and Lateral Normal [facility] Chloride assayOrdered By: Jason Servin on 12-20-2024 Chloride [Moles/Vol] 93 mmol/L Low 98-108 [facility] Chloride assayOrdered By: Susanna Rock on 12-20-2024 Chloride [Moles/Vol] 94 mmol/L Low 98-108 [facility] Comprehensive Metabolic Prof ilon 12-20-2024 Albumin [Mass/Vol] 4.0 g/dL Normal 3.4-4.8 [facility] Comment on above: Performed By: #### L 501.5200, L500.4050, L501.2450 ####[facility] [address] [place], [address] Albumin/Globulin [Mass ratio] 1.0 {ratio} Normal 0.9-2.4 [facility] Comment on above: Performed By: #### L 501.5200, L500.4050, L501.2450 ####[facility] [address] [place], [address] ALK PHOS 180 U/L High 40-129 [facility] Comment on above: Performed By: #### L 501.5200, L500.4050, L501.2450 ####[facility] [address] [place], [address] ALT [Catalytic activity/Vol] 32 U/L Normal <=46 [facility] Comment on above: Performed By: #### L 501.5200, L500.4050, L501.2450 ####[facility] [address] [place], [address] AST [Catalytic activity/Vol] 28 U/L Normal <=37 [facility] Comment on above: Performed By: #### L 501.5200, L500.4050, L501.2450 ####[facility] [address] [place], [address] Bilirubin [Mass/Vol] 1.15 mg/dL Normal 0.00-1.30 [facility] Comment on above: Performed By: #### L 501.5200, L500.4050, L501.2450 ####[facility] [address] [place], [address] BUN/CRE 19.5 RATIO Normal 10-20 [facility] Comment on above: Performed By: #### L 501.5200, L500.4050, L501.2450 ####[facility] [address] [place], [address] Calcium [Mass/Vol] 9.5 mg/dL Normal 7.6-11.0 [facility] Comment on above: Performed By: #### L 501.5200, L500.4050, L501.2450 ####[facility] [address] [place], [address] Chloride [Moles/Vol] 93 mmol/L Low 98-108 [facility] Comment on above: Performed By: #### L 501.5200, L500.4050, L501.2450 ####[facility] [address] [place], [address] CO2 [Moles/Vol] 18.5 mmol/L Low 21.0-32.0 [facility] Comment on above: Performed By: #### L 501.5200, L500.4050, L501.2450 ####[facility] [address] [place], [address] Creatinine [Mass/Vol] 3.24 mg/dL High 0.70-1.20 [facility] Comment on above: Performed By: #### L 501.5200, L500.4050, L501.2450 ####[facility] [address] [place], [address] ECRCL 21.32 ml/min Low 50-250 [facility] Comment on above: Performed By: #### L 501.5200, L500.4050, L501.2450 ####[facility] [address] [place], [address] GAP 19 High 5-15 [facility] Comment on above: Performed By: #### L 501.5200, L500.4050, L501.2450 ####[facility] [address] [place], [address] GFR/1.73 sq M.predicted among non-blacks MDRD (S/P/Bld) [Vol rate/Area] 19 mL/min/{1.73_m2} Low >60 [facility] Comment on above: Result Comment: mL/m in/1.73m2 CKD-EPI Creatinine Equation (2020) Performed By: #### L 501.5200, L500.4050, L501.2450 ####[facility] [address] [place], [address] Globulin (S) [Mass/Vol] 4.0 g/dL Normal 2.2-4.2 [facility] Comment on above: Performed By: #### L 501.5200, L500.4050, L501.2450 ####[facility] [address] [place], [address] Glucose [Mass/Vol] 173 mg/dL High 70-99 [facility] Comment on above: Performed By: #### L 501.5200, L500.4050, L501.2450 ####[facility] [address] [place], [address] Potassium [Moles/Vol] 4.2 mmol/L Normal 3.3-5.1 [facility] Comment on above: Performed By: #### L 501.5200, L500.4050, L501.2450 ####[facility] [address] [place], [address] Sodium [Moles/Vol] 131 mmol/L Low 133-145 [facility] Comment on above: Performed By: #### L 501.5200, L500.4050, L501.2450 ####[facility] [address] [place], [address] T PROT 8.0 g/dL Normal 5.9-8.4 [facility] Comment on above: Performed By: #### L 501.5200, L500.4050, L501.2450 ####[facility] [address] [place], [address] Urea nitrogen [Mass/Vol] 63 mg/dL High 4-19 [facility] Comment on above: Performed By: #### L 501.5200, L500.4050, L501.2450 ####[facility] [address] [place], [address] Emergency Department Summary on 12-20-2024 Emergency Department Summary Normal [facility] Eosinophil percentageOrdered By: Jody Servin on 12-20-2024 Eosinophils/100 WBC (Bld) 0.1 % 0-5 [facility] Eosinophil percentageOrdered By: Efewongbe Oleghe on 12-20-2024 Eosinophils/100 WBC (Bld) 0.2 % 0-5 [facility] Erythrocyte distribution wid th ratioOrdered By: Jody Butlerer on 12-20-2024 Erythrocyte distribution width (RBC) [Ratio] 13.8 % 11.6-14.6 [facility] Erythrocyte distribution wid th ratioOrdered By: Efewongbe Oleghe on 12-20-2024 Erythrocyte distribution width (RBC) [Ratio] 13.7 % 11.6-14.6 [facility] Erythrocyte distribution wid th standard deviationOrdered By: Jody Servin on 12-20-2024 Erythrocyte distribution width (RBC) [Ratio] 43.2 fl 35.1-43.9 [facility] Erythrocyte distribution wid th standard deviationOrdered By: Efewongbe Oleghe on 12-20-2024 Erythrocyte distribution width (RBC) [Ratio] 43.4 fl 35.1-43.9 [facility] Glomerular filtration rate ( GFR) estimation/1.73 sq m using serum, plasma, or whole bOrdered By: Jody Servin on 12-20-2024 GFR/1.73 sq M.predicted among non-blacks MDRD (S/P/Bld) [Vol rate/Area] 19 mL/min/{1.73_m2} Low >60 [facility] Glomerular filtration rate ( GFR) estimation/1.73 sq m using serum, plasma, or whole bOrdered By: Boyd Castañedaghe on 12-20-2024 GFR/1.73 sq M.predicted among non-blacks MDRD (S/P/Bld) [Vol rate/Area] 18 mL/min/{1.73_m2} Low >60 [facility] Hematocrit Auto (Bld) [Volum e fraction]Ordered By: Jody Servin on 12-20-2024 Hematocrit (Bld) [Volume fraction] 41.8 % 40-54 [facility] Hematocrit Auto (Bld) [Volum e fraction]Ordered By: Boyd Rock on 12-20-2024 Hematocrit (Bld) [Volume fraction] 41.1 % 40-54 [facility] Hemoglobin measurementOrdere d By: Jody Servin on 12-20-2024 Hemoglobin (Bld) [Mass/Vol] 13.8 g/dL 13.0-16.5 [facility] Hemoglobin measurementOrdere d By: Boyd Rock on 12-20-2024 Hemoglobin (Bld) [Mass/Vol] 13.6 g/dL 13.0-16.5 [facility] Immature granulocytes/100 WB C Auto (Bld)Ordered By: Jody Servin on 12-20-2024 Immature granulocytes/100 WBC (Bld) 0.500 % 0.0-0.9 [facility] Immature granulocytes/100 WB C Auto (Bld)Ordered By: Boyd Rock on 12-20-2024 Immature granulocytes/100 WBC (Bld) 0.800 % 0.0-0.9 [facility] Lipaseon 12-20-2024 Lipase [Catalytic activity/Vol] 120 U/L High 13-75 [facility] Comment on above: Result Comment: Noah fletcher note:LIPASE revised reference range effective 22.New Lipase methodology. Expected to produce lower valuesthan the previous assay method.NEW Reference Range: 13 - 75 U/L Performed By: #### L 501.5200, L500.4050, L501.2450 ####[facility] [address] [place], [address] MCV (mean corpuscular volume ) determinationOrdered By: Jody Servin on 12-20-2024 MCV (RBC) [Entitic vol] 86.7 fL 80-94 [facility] MCV (mean corpuscular volume ) determinationOrdered By: Boyd Rock on 12-20-2024 MCV (RBC) [Entitic vol] 87.6 fL 80-94 [facility] Magnesiumon 12-20-2024 Magnesium [Mass/Vol] 2.4 mg/dL High 1.5-2.2 [facility] Comment on above: Performed By: #### L 501.5200, L500.4050, L501.2450 ####[facility] [address] [place], [place], [address] Magnesium measurement (mass/ volume)Ordered By: Jody Servin on 12-20-2024 Magnesium (Unsp spec) [Mass/Vol] 2.4 mg/dL High 1.5-2.2 [facility] Mean corpuscular hemoglobin (MCH) determinationOrdered By: Jody Servin on 12-20-2024 MCH (RBC) [Entitic mass] 28.6 pg 27.0-32.0 [facility] Mean corpuscular hemoglobin (MCH) determinationOrdered By: Boyd Rock on 12-20-2024 MCH (RBC) [Entitic mass] 29.0 pg 27.0-32.0 [facility] Monocyte percentageOrdered B y: Jody Servin on 12-20-2024 Monocytes/100 WBC (Bld) 11.5 % High 0-10 [facility] Monocyte percentageOrdered B y: Boyd Rock on 12-20-2024 Monocytes/100 WBC (Bld) 12.1 % High 0-10 [facility] Neutrophil percentageOrdered By: Jody Servin on 12-20-2024 Neutrophils/100 WBC (Bld) 75.9 % High 47-70 [facility] Neutrophil percentageOrdered By: Boyd Rock on 12-20-2024 Neutrophils/100 WBC (Bld) 76.1 % High 47-70 [facility] No Panel InformationOrdered By: Jody Servin on 12-20-2024 28 U/L <38 [facility] No Panel InformationOrdered By: Boyd Rock on 12-20-2024 29 U/L <38 [facility] Partial Thromboplast Timeon 12-20-2024 aPTT Coag (Bld) [Time] 27.6 s Normal 24.1-36.2 [facility] Comment on above: Performed By: #### L 300.3900, L300.4310, L100.0100 ####[facility] [address] [place], [place], [address] Platelet countOrdered By: Jason Servin on 12-20-2024 Platelets (Bld) [#/Vol] 231 10*3/uL 150-450 [facility] Platelet countOrdered By: Susanna Rock on 12-20-2024 Platelets (Bld) [#/Vol] 208 10*3/uL 150-450 [facility] Potassium measurement (mass/ volume)Ordered By: Jody Servin on 12-20-2024 Potassium (Unsp spec) [Mass/Vol] 4.2 mmol/L 3.3-5.1 [facility] Potassium measurement (mass/ volume)Ordered By: Boyd Rokc on 12-20-2024 Potassium (Unsp spec) [Mass/Vol] 4.0 mmol/L 3.3-5.1 [facility] Prothrombin Time w/INRon INR Coag (PPP) [Relative time] 1.1 {INR} Normal [facility] Comment on above: Performed By: #### L 300.3900, L300.4310, L100.0100 ####[facility] [address] [place], [place], [id number] PT Coag (PPP) [Time] 14.1 s Normal 11.7-14.9 [facility] Comment on above: Performed By: #### L 300.3900, L300.4310, L100.0100 ####[facility] [address] [place], [place], [address] Prothrombin timeOrdered By: Jody Servin on 12-20-2024 PT Coag (PPP) [Time] 14.1 s 11.7-14.9 [facility] RBC Auto (Bld) [#/Vol]Ordere d By: Jody Servin on 12-20-2024 RBC (Bld) [#/Vol] 4.82 10*6/uL 4.6-6.2 [facility] RBC Auto (Bld) [#/Vol]Ordere d By: Boyd Rock on 12-20-2024 RBC (Bld) [#/Vol] 4.69 10*6/uL 4.6-6.2 [facility] Serum creatinine measurement (mass/volume)Ordered By: Jody Servin on 12-20-2024 Creatinine [Mass/Vol] 3.24 mg/dL High 0.70-1.20 [facility] Serum creatinine measurement (mass/volume)Ordered By: Boyd Rock on 12-20-2024 Creatinine [Mass/Vol] 3.35 mg/dL High 0.70-1.20 [facility] Serum globulin measurementOr dered By: Jody Servin on 12-20-2024 Globulin (S) [Mass/Vol] 4.0 g/dL 2.2-4.2 [facility] Serum globulin measurementOr dered By: Boyd Rock on 12-20-2024 Globulin (S) [Mass/Vol] 3.7 g/dL 2.2-4.2 [facility] Serum glucose measurement (m ass/volume)Ordered By: Jody Servin on 12-20-2024 Glucose [Mass/Vol] 173 mg/dL High 70-99 [facility] Serum glucose measurement (m ass/volume)Ordered By: Boyd Rock on 12-20-2024 Glucose [Mass/Vol] 205 mg/dL High 70-99 [facility] Serum or plasma alanine guerrero otransferase (ALT) measurementOrdered By: Jody Servin on 12-20-2024 ALT [Catalytic activity/Vol] 32 U/L <47 [facility] Serum or plasma alanine guerrero otransferase (ALT) measurementOrdered By: Boyd Rock on 12-20-2024 ALT [Catalytic activity/Vol] 31 U/L <47 [facility] Serum or plasma albumin francine urement (mass/volume)Ordered By: Jody Servin on 12-20-2024 Albumin [Mass/Vol] 4.0 g/dL 3.4-4.8 [facility] Serum or plasma albumin francine urement (mass/volume)Ordered By: Boyd Rock on 12-20-2024 Albumin [Mass/Vol] 4.0 g/dL 3.4-4.8 [facility] Serum or plasma albumin/glob ulin mass ratioOrdered By: Jody Servin on 12-20-2024 Albumin/Globulin [Mass ratio] 1.0 {ratio} 0.9-2.4 [facility] Serum or plasma albumin/glob ulin mass ratioOrdered By: Boyd Rock on 12-20-2024 Albumin/Globulin [Mass ratio] 1.1 {ratio} 0.9-2.4 [facility] Serum or plasma alkaline bell sphatase measurementOrdered By: Jody Servin on 12-20-2024 ALP [Catalytic activity/Vol] 180 U/L High 40-129 [facility] Serum or plasma alkaline bell sphatase measurementOrdered By: Boyd Rock on 12-20-2024 ALP [Catalytic activity/Vol] 167 U/L High 40-129 [facility] Serum or plasma calcium francine urement (mass/volume)Ordered By: Jody Servin on 12-20-2024 Calcium [Mass/Vol] 9.5 mg/dL 7.6-11.0 [facility] Serum or plasma calcium francine urement (mass/volume)Ordered By: Boyd Rock on 12-20-2024 Calcium [Mass/Vol] 9.2 mg/dL 7.6-11.0 [facility] Serum or plasma urea nitroge n measurement (mass/volume)Ordered By: Jody Servin on 12-20-2024 Urea nitrogen [Mass/Vol] 63 mg/dL High 08-19 [facility] Serum or plasma urea nitroge n measurement (mass/volume)Ordered By: Boyd Rock on 12-20-2024 Urea nitrogen [Mass/Vol] 69 mg/dL High 08-19 [facility] Sodium levelOrdered By: Shaan Servin on 12-20-2024 Sodium [Moles/Vol] 131 mmol/L Low 133-145 [facility] Sodium levelOrdered By: Lupe Rock on 12-20-2024 Sodium [Moles/Vol] 131 mmol/L Low 133-145 [facility] Stool Occult Blood iFOBon STOB Positive Normal [facility] Comment on above: Performed By: #### M 100.7900 ####[facility] [address] [place], [place], [id number] Stool gastrointestinal hemog lobin detection by immunologic methodOrdered By: Jody Servin on 12-20-2024 Lower GI hemoglobin IA Ql (Stl) Positive Abnormal [facility] Total proteinOrdered By: Gunjan Servin on 12-20-2024 Protein [Mass/Vol] 8.0 g/dL 5.9-8.4 [facility] Total proteinOrdered By: Anastacio nicole Shweta on 12-20-2024 Protein [Mass/Vol] 7.7 g/dL 5.9-8.4 [facility] Type AND Screenon 12-20-2024 ABO and Rh group Nom (Bld) Blood group O Rh(D) positive Normal [facility] Comment on above: Order Comment: Has p t arrived? YHGI Performed By: #### B TS ####[facility] [address] [place], [place], [id number] White blood cell (WBC) count Ordered By: Jodyalonzo Servin on 12-20-2024 WBC (Bld) [#/Vol] 11.8 10*3/uL High 4.4-11.0 [facility] White blood cell (WBC) count Ordered By: Jameybrittni Rock on 12-20-2024 WBC (Bld) [#/Vol] 10.3 10*3/uL 4.4-11.0 [facility] Clostridium difficile detect ion by polymerase chain reactionOrdered By: Boyd Rock on 12-18-2024 C. difficile DNA REAGAN+probe Ql (Unsp spec) [facility] Bedside Glucoseon 12-17-2024 FINGERSTICK GLU 253 mg/dL High 74-106 [facility] Comment on above: Result Comment: WILDA BARROSO OF PATIENT CARE PER NURSING PROTOCOL Performed By: #### L 501.080 ####[facility] [address] [place], [place], [id number] FINGERSTICK GLU 178 mg/dL High 74-106 [facility] Comment on above: Result Comment: WILDA BARROSO OF PATIENT CARE PER NURSING PROTOCOL Performed By: #### L 501.080 ####[facility] [address] [place], [address] Glucose measurement at [facility] deOrdered By: Marycarmen [place] on 12-17-2024 Glucose [Mass/Vol] 253 mg/dL High 74-106 [facility] Absolute lymphocyte countOrd ered By: Ramonita Herron on 12-16-2024 Lymphocytes Auto (Unsp spec) [#/Vol] 0.93 10*3/uL 0.83-4.51 [facility] Anion gap in Serum or Plasma Ordered By: Ramonita Herron on 12-16-2024 Anion gap [Moles/Vol] 18 mmol/L High 5-15 [facility] Automated lymphocyte count a s percentage of total leukocytesOrdered By: Ramonita Herron on 12-16-2024 Lymphocytes/100 WBC Auto (Unsp spec) 10.7 % Low 19-41 [facility] BUN/creatinine ratioOrdered By: Ramonita Herron on 12-16-2024 Urea nitrogen/Creatinine [Mass ratio] 21.8 mg/mg High 10-20 [facility] Basic Metabolic Profile (BMP )on 12-16-2024 BUN/CRE 21.8 RATIO High 10-20 [facility] Comment on above: Performed By: #### L 500.2500, L100.0100 ####[facility] [address] [place], [address] Calcium [Mass/Vol] 9.3 mg/dL Normal 7.6-11.0 [facility] Comment on above: Performed By: #### L 500.2500, L100.0100 ####[facility] [address] [place], [address] Chloride [Moles/Vol] 93 mmol/L Low 98-108 [facility] Comment on above: Performed By: #### L 500.2500, L100.0100 ####[facility] [address] [place], [address] CO2 [Moles/Vol] 19.2 mmol/L Low 21.0-32.0 [facility] Comment on above: Performed By: #### L 500.2500, L100.0100 ####[facility] [address] [place], [address] Creatinine [Mass/Vol] 2.65 mg/dL High 0.70-1.20 [facility] Comment on above: Performed By: #### L 500.2500, L100.0100 ####[facility] [address] [place], [address] ECRCL 25.90 ml/min Low 50-250 [facility] Comment on above: Performed By: #### L 500.2500, L100.0100 ####[facility] [address] [place], [address] GAP 18 High 5-15 [facility] Comment on above: Performed By: #### L 500.2500, L100.0100 ####[facility] [address] [place], [address] GFR/1.73 sq M.predicted among non-blacks MDRD (S/P/Bld) [Vol rate/Area] 24 mL/min/{1.73_m2} Low >60 [facility] Comment on above: Result Comment: mL/m in/1.73m2 CKD-EPI Creatinine Equation (2020) Performed By: #### L 500.2500, L100.0100 ####[facility] [address] [place], [address] Glucose [Mass/Vol] 182 mg/dL High 70-99 [facility] Comment on above: Performed By: #### L 500.2500, L100.0100 ####[facility] [address] [place], [address] Potassium [Moles/Vol] 3.8 mmol/L Normal 3.3-5.1 [facility] Comment on above: Performed By: #### L 500.2500, L100.0100 ####[facility] [address] [place], [address] Sodium [Moles/Vol] 131 mmol/L Low 133-145 [facility] Comment on above: Performed By: #### L 500.2500, L100.0100 ####[facility] [address] [place], [address] Urea nitrogen [Mass/Vol] 58 mg/dL High 4-19 [facility] Comment on above: Performed By: #### L 500.2500, L100.0100 ####[facility] [address] [place], [address] Basophil percentageOrdered B y: Ramonita Herron on 12-16-2024 Basophils/100 WBC (Bld) 0.2 % 0-1 [facility] Bedside Glucoseon 12-16-2024 FINGERSTICK GLU 215 mg/dL High 74-106 [facility] Comment on above: Result Comment: WILDA GEMENT OF PATIENT CARE PER NURSING PROTOCOL Performed By: #### L 501.080 ####[facility] [address] [place], [address] FINGERSTICK GLU 237 mg/dL High 74-106 [facility] Comment on above: Result Comment: WILDA GEMENT OF PATIENT CARE PER NURSING PROTOCOL Performed By: #### L 501.080 ####[facility] [address] [place], [address] FINGERSTICK GLU 152 mg/dL High 74-106 [facility] Comment on above: Result Comment: WILDA GEMENT OF PATIENT CARE PER NURSING PROTOCOL Performed By: #### L 501.080 ####[facility] [address] [place], [address] FINGERSTICK GLU 169 mg/dL High 74-106 [facility] Comment on above: Result Comment: WILDA GEMENT OF PATIENT CARE PER NURSING PROTOCOL Performed By: #### L 501.080 ####[facility] [address] [place], [address] CBC W/Diff, Automatedon 08- Absolute Lymph 0.93 X10 3/uL Normal 0.83-4.51 [facility] Comment on above: Performed By: #### L 500.2500, L100.0100 ####[facility] [address] [place], [address] Absolute Neut 6.6 X10 3/uL Normal 2.0-7.7 [facility] Comment on above: Performed By: #### L 500.2500, L100.0100 ####[facility] [address] [place], [address] Basophils/100 WBC (Bld) 0.2 % Normal 0-1 [facility] Comment on above: Performed By: #### L 500.2500, L100.0100 ####[facility] [address] [place], [address] Eosinophils/100 WBC (Bld) 0.5 % Normal 0-5 [facility] Comment on above: Performed By: #### L 500.2500, L100.0100 ####[facility] [address] [place], [address] Erythrocyte distribution width (RBC) [Ratio] 13.4 % Normal 11.6-14.6 [facility] Comment on above: Performed By: #### L 500.2500, L100.0100 ####[facility] [address] [place], [address] Hematocrit (Bld) [Volume fraction] 40.1 % Normal 40-54 [facility] Comment on above: Performed By: #### L 500.2500, L100.0100 ####[facility] [address] [place], [address] Hemoglobin (Bld) [Mass/Vol] 13.3 g/dL Normal 13.0-16.5 [facility] Comment on above: Performed By: #### L 500.2500, L100.0100 ####[facility] [address] [place], [address] IG% 0.800 Normal 0.0-0.9 [facility] Comment on above: Result Comment: IG% - Immature Granulocytes (promyelocytes, myelocytes andmetamyelocytes) > 1% indicates that a LEFT SHIFT is Present. Performed By: #### L 500.2500, L100.0100 ####[facility] [address] [place], [address] Lymphocytes/100 WBC (Bld) 10.7 % Low 19-41 [facility] Comment on above: Performed By: #### L 500.2500, L100.0100 ####[facility] [address] [place], [address] MCH (RBC) [Entitic mass] 28.6 pg Normal 27.0-32.0 [facility] Comment on above: Performed By: #### L 500.2500, L100.0100 ####[facility] [address] [place], [address] MCHC (RBC) [Mass/Vol] 33.2 g/dL Normal 32-36 [facility] Comment on above: Performed By: #### L 500.2500, L100.0100 ####[facility] [address] [place], [address] MCV (RBC) [Entitic vol] 86.2 fL Normal 80-94 [facility] Comment on above: Performed By: #### L 500.2500, L100.0100 ####[facility] [address] [place], [address] Monocytes/100 WBC (Bld) 12.1 % High 0-10 [facility] Comment on above: Performed By: #### L 500.2500, L100.0100 ####[facility] [address] [place], [address] Neutrophils/100 WBC (Bld) 75.7 % High 47-70 [facility] Comment on above: Performed By: #### L 500.2500, L100.0100 ####[facility] [address] [place], [address] Nucleated RBC (Bld) [#/Vol] 0 10*3/uL Normal 0-5 [facility] Comment on above: Performed By: #### L 500.2500, L100.0100 ####[facility] [address] [place], [address] Platelet mean volume (Bld) [Entitic vol] 13.2 fL High 6.2-12.0 [facility] Comment on above: Performed By: #### L 500.2500, L100.0100 ####[facility] [address] [place], [address] Platelets (Bld) [#/Vol] 181 10*3/uL Normal 150-450 [facility] Comment on above: Performed By: #### L 500.2500, L100.0100 ####[facility] [address] [place], [address] RBC (Bld) [#/Vol] 4.65 10*6/uL Normal 4.6-6.2 [facility] Comment on above: Performed By: #### L 500.2500, L100.0100 ####[facility] [address] [place], [address] RDW SD 42.2 fl Normal 35.1-43.9 [facility] Comment on above: Performed By: #### L 500.2500, L100.0100 ####[facility] [address] [place], [place], [address] WBC (Bld) [#/Vol] 8.7 10*3/uL Normal 4.4-11.0 [facility] Comment on above: Performed By: #### L 500.2500, L100.0100 ####[facility] [address] [facility] [place], [address] Carbon dioxide, total [Moles /volume] in Central venous bloodOrdered By: Ramonita Herron on 12-16-2024 CO2 [Moles/Vol] 19.2 mmol/L Low 21.0-32.0 [facility] Chloride assayOrdered By: Parish Herron on 12-16-2024 Chloride [Moles/Vol] 93 mmol/L Low 98-108 [facility] Eosinophil percentageOrdered By: Ramonita Herron on 12-16-2024 Eosinophils/100 WBC (Bld) 0.5 % 0-5 [facility] Erythrocyte distribution wid th ratioOrdered By: Ramonita Herron on 12-16-2024 Erythrocyte distribution width (RBC) [Ratio] 13.4 % 11.6-14.6 [facility] Erythrocyte distribution wid th standard deviationOrdered By: Ramonita Herron on 12-16-2024 Erythrocyte distribution width (RBC) [Ratio] 42.2 fl 35.1-43.9 [facility] Glomerular filtration rate ( GFR) estimation/1.73 sq m using serum, plasma, or whole bOrdered By: Ramonita Herron on 12-16-2024 GFR/1.73 sq M.predicted among non-blacks MDRD (S/P/Bld) [Vol rate/Area] 24 mL/min/{1.73_m2} Low >60 [facility] Hematocrit Auto (Bld) [Volum e fraction]Ordered By: Ramonita Herron on 12-16-2024 Hematocrit (Bld) [Volume fraction] 40.1 % 40-54 [facility] Hemoglobin measurementOrdere d By: Ramonita Herron on 12-16-2024 Hemoglobin (Bld) [Mass/Vol] 13.3 g/dL 13.0-16.5 [facility] Immature granulocytes/100 WB C Auto (Bld)Ordered By: Ramonita Herron on 12-16-2024 Immature granulocytes/100 WBC (Bld) 0.800 % 0.0-0.9 [facility] MCV (mean corpuscular volume ) determinationOrdered By: Ramonita Herron on 12-16-2024 MCV (RBC) [Entitic vol] 86.2 fL 80-94 [facility] Mean corpuscular hemoglobin (MCH) determinationOrdered By: Ramonita Herron on 12-16-2024 MCH (RBC) [Entitic mass] 28.6 pg 27.0-32.0 [facility] Monocyte percentageOrdered B y: Ramonita Herron on 12-16-2024 Monocytes/100 WBC (Bld) 12.1 % High 0-10 [facility] Neutrophil percentageOrdered By: Ramonita Herron on 12-16-2024 Neutrophils/100 WBC (Bld) 75.7 % High 47-70 [facility] Platelet countOrdered By: Parish Herron on 12-16-2024 Platelets (Bld) [#/Vol] 181 10*3/uL 150-450 [facility] Potassium measurement (mass/ volume)Ordered By: Ramonita Herron on 12-16-2024 Potassium (Unsp spec) [Mass/Vol] 3.8 mmol/L 3.3-5.1 [facility] RBC Auto (Bld) [#/Vol]Ordere d By: Ramonita Herron on 12-16-2024 RBC (Bld) [#/Vol] 4.65 10*6/uL 4.6-6.2 [facility] Serum creatinine measurement (mass/volume)Ordered By: Ramonita Herron on 12-16-2024 Creatinine [Mass/Vol] 2.65 mg/dL High 0.70-1.20 [facility] Serum glucose measurement (m ass/volume)Ordered By: Ramonita Herron on 12-16-2024 Glucose [Mass/Vol] 182 mg/dL High 70-99 [facility] Serum or plasma calcium francine urement (mass/volume)Ordered By: Ramonita Herron on 12-16-2024 Calcium [Mass/Vol] 9.3 mg/dL 7.6-11.0 [facility] Serum or plasma urea nitroge n measurement (mass/volume)Ordered By: Ramonita Herron on 12-16-2024 Urea nitrogen [Mass/Vol] 58 mg/dL High 4-19 [facility] Sodium levelOrdered By: Mary Herron on 12-16-2024 Sodium [Moles/Vol] 131 mmol/L Low 133-145 [facility] White blood cell (WBC) count Ordered By: Ramonita Herron on 12-16-2024 WBC (Bld) [#/Vol] 8.7 10*3/uL 4.4-11.0 [facility] 12 Lead EKGon 12-15-2024 12 Lead EKG Normal [facility] Activated partial thrombopla stin time (aPTT) in platelet poor plasma by coagulation aOrdered By: Payal Weldon on 12-15-2024 aPTT Coag (PPP) [Time] 222.8 s High 24.1-36.2 [facility] Basic Metabolic Profile (BMP )on 12-15-2024 BUN/CRE 20.4 RATIO High 10-20 [facility] Comment on above: Performed By: #### L 100.0100, L300.4310, L300.3900, L503.7505, L500.2500, L501.4021 ####[facility] [address] [place], [address] Calcium [Mass/Vol] 9.5 mg/dL Normal 7.6-11.0 [facility] Comment on above: Performed By: #### L 100.0100, L300.4310, L300.3900, L503.7505, L500.2500, L501.4021 ####[facility] [address] [place], [address] Chloride [Moles/Vol] 91 mmol/L Low 98-108 [facility] Comment on above: Performed By: #### L 100.0100, L300.4310, L300.3900, L503.7505, L500.2500, L501.4021 ####[facility] [address] [place], [address] CO2 [Moles/Vol] 18.4 mmol/L Low 21.0-32.0 [facility] Comment on above: Performed By: #### L 100.0100, L300.4310, L300.3900, L503.7505, L500.2500, L501.4021 ####[facility] [address] [place], [address] Creatinine [Mass/Vol] 2.90 mg/dL High 0.70-1.20 [facility] Comment on above: Performed By: #### L 100.0100, L300.4310, L300.3900, L503.7505, L500.2500, L501.4021 ####[facility] [address] [place], [address] ECRCL 23.97 ml/min Low 50-250 [facility] Comment on above: Performed By: #### L 100.0100, L300.4310, L300.3900, L503.7505, L500.2500, L501.4021 ####[facility] [address] [facility] [address] GAP 19 High 5-15 [facility] Comment on above: Performed By: #### L 100.0100, L300.4310, L300.3900, L503.7505, L500.2500, L501.4021 ####[facility] [address] [facility] [address] GFR/1.73 sq M.predicted among non-blacks MDRD (S/P/Bld) [Vol rate/Area] 21 mL/min/{1.73_m2} Low >60 [facility] Comment on above: Result Comment: mL/m in/1.73m2 CKD-EPI Creatinine Equation (2020) Performed By: #### L 100.0100, L300.4310, L300.3900, L503.7505, L500.2500, L501.4021 ####[facility] [address] [place], [address] Glucose [Mass/Vol] 266 mg/dL High 70-99 [facility] Comment on above: Performed By: #### L 100.0100, L300.4310, L300.3900, L503.7505, L500.2500, L501.4021 ####[facility] [address] [place], [address] Potassium [Moles/Vol] 4.5 mmol/L Normal 3.3-5.1 [facility] Comment on above: Performed By: #### L 100.0100, L300.4310, L300.3900, L503.7505, L500.2500, L501.4021 ####[facility] [address] [place], [address] Sodium [Moles/Vol] 129 mmol/L Low 133-145 [facility] Comment on above: Performed By: #### L 100.0100, L300.4310, L300.3900, L503.7505, L500.2500, L501.4021 ####[facility] [address] [place], [address] Urea nitrogen [Mass/Vol] 59 mg/dL High 4-19 [facility] Comment on above: Performed By: #### L 100.0100, L300.4310, L300.3900, L503.7505, L500.2500, L501.4021 ####[facility] [address] [place], [address] Bedside Glucoseon 12-15-2024 FINGERSTICK GLU 192 mg/dL High 74-106 [facility] Comment on above: Result Comment: WILDA BARROSO OF PATIENT CARE PER NURSING PROTOCOL Performed By: #### L 501.080 ####[facility] [address] [place], [address] FINGERSTICK GLU 186 mg/dL High 74-106 [facility] Comment on above: Result Comment: WILDA BARROSO OF PATIENT CARE PER NURSING PROTOCOL Performed By: #### L 501.080 ####[facility] [address] [place], [address] CBC W/Diff, Automatedon 12-01-2024 Absolute Lymph 1.43 X10 3/uL Normal 0.83-4.51 [facility] Comment on above: Performed By: #### L 100.0100, L300.4310, L300.3900, L503.7505, L500.2500, L501.4021 ####[facility] [address] [place], [address] Absolute Neut 11.7 X10 3/uL High 2.0-7.7 [facility] Comment on above: Performed By: #### L 100.0100, L300.4310, L300.3900, L503.7505, L500.2500, L501.4021 ####[facility] [address] [place], [address] Basophils/100 WBC (Bld) 0.2 % Normal 0-1 [facility] Comment on above: Performed By: #### L 100.0100, L300.4310, L300.3900, L503.7505, L500.2500, L501.4021 ####[facility] [address] [place], [address] Eosinophils/100 WBC (Bld) 0.1 % Normal 0-5 [facility] Comment on above: Performed By: #### L 100.0100, L300.4310, L300.3900, L503.7505, L500.2500, L501.4021 ####[facility] [address] [place], [address] Erythrocyte distribution width (RBC) [Ratio] 13.4 % Normal 11.6-14.6 [facility] Comment on above: Performed By: #### L 100.0100, L300.4310, L300.3900, L503.7505, L500.2500, L501.4021 ####[facility] [address] [place], [address] Hematocrit (Bld) [Volume fraction] 40.2 % Normal 40-54 [facility] Comment on above: Performed By: #### L 100.0100, L300.4310, L300.3900, L503.7505, L500.2500, L501.4021 ####[facility] [address] [place], [address] Hemoglobin (Bld) [Mass/Vol] 13.7 g/dL Normal 13.0-16.5 [facility] Comment on above: Performed By: #### L 100.0100, L300.4310, L300.3900, L503.7505, L500.2500, L501.4021 ####[facility] [address] [place], [address] IG% 0.800 Normal 0.0-0.9 [facility] Comment on above: Result Comment: IG% - Immature Granulocytes (promyelocytes, myelocytes andmetamyelocytes) > 1% indicates that a LEFT SHIFT is Present. Performed By: #### L 100.0100, L300.4310, L300.3900, L503.7505, L500.2500, L501.4021 ####[facility] [address] [place], [address] Lymphocytes/100 WBC (Bld) 9.7 % Low 19-41 [facility] Comment on above: Performed By: #### L 100.0100, L300.4310, L300.3900, L503.7505, L500.2500, L501.4021 ####[facility] [address] [place], [address] MCH (RBC) [Entitic mass] 29.0 pg Normal 27.0-32.0 [facility] Comment on above: Performed By: #### L 100.0100, L300.4310, L300.3900, L503.7505, L500.2500, L501.4021 ####[facility] [address] [place], [address] MCHC (RBC) [Mass/Vol] 34.1 g/dL Normal 32-36 [facility] Comment on above: Performed By: #### L 100.0100, L300.4310, L300.3900, L503.7505, L500.2500, L501.4021 ####[facility] [address] [place], [address] MCV (RBC) [Entitic vol] 85.2 fL Normal 80-94 [facility] Comment on above: Performed By: #### L 100.0100, L300.4310, L300.3900, L503.7505, L500.2500, L501.4021 ####[facility] [address] [place], [address] Monocytes/100 WBC (Bld) 9.9 % Normal 0-10 [facility] Comment on above: Performed By: #### L 100.0100, L300.4310, L300.3900, L503.7505, L500.2500, L501.4021 ####[facility] [address] [place], [address] Neutrophils/100 WBC (Bld) 79.3 % High 47-70 [facility] Comment on above: Performed By: #### L 100.0100, L300.4310, L300.3900, L503.7505, L500.2500, L501.4021 ####[facility] [address] [place], [address] Nucleated RBC (Bld) [#/Vol] 0 10*3/uL Normal 0-5 [facility] Comment on above: Performed By: #### L 100.0100, L300.4310, L300.3900, L503.7505, L500.2500, L501.4021 ####[facility] [address] [place], [address] Platelet mean volume (Bld) [Entitic vol] 13.4 fL High 6.2-12.0 [facility] Comment on above: Performed By: #### L 100.0100, L300.4310, L300.3900, L503.7505, L500.2500, L501.4021 ####[facility] [address] [place], [address] Platelets (Bld) [#/Vol] 242 10*3/uL Normal 150-450 [facility] Comment on above: Performed By: #### L 100.0100, L300.4310, L300.3900, L503.7505, L500.2500, L501.4021 ####[facility] [address] [place], [address] RBC (Bld) [#/Vol] 4.72 10*6/uL Normal 4.6-6.2 [facility] Comment on above: Performed By: #### L 100.0100, L300.4310, L300.3900, L503.7505, L500.2500, L501.4021 ####[facility] [address] [place], [address] RDW SD 41.6 fl Normal 35.1-43.9 [facility] Comment on above: Performed By: #### L 100.0100, L300.4310, L300.3900, L503.7505, L500.2500, L501.4021 ####[facility] [address] [place], [address] WBC (Bld) [#/Vol] 14.8 10*3/uL High 4.4-11.0 [facility] Comment on above: Performed By: #### L 100.0100, L300.4310, L300.3900, L503.7505, L500.2500, L501.4021 ####[facility] [address] [place], [address] Chest 1 View (Portable)on Chest 1 View (Portable) Normal [facility] Consultation - Cardiologyon 12-15-2024 Consultation - Cardiology Normal [facility] Echo, Limited Studyon 2024 Echo, Limited Study Normal [facility] Emergency Department Summary on 12-15-2024 Emergency Department Summary Normal [facility] H AND P Exam - [place] 12-15-2024 H&P Exam - Hospitalist Normal [facility] L501.4021on 12-15-2024 Trop T High Sen 1137 ng/L Invalid Interpretation Code <=22 [facility] Comment on above: Result Comment: Crit ical Result(s) Called at 1318: by: MONICA KOO.??Results read back by same. Performed By: #### L 100.0100, L300.4310, L300.3900, L503.7505, L500.2500, L501.4021 ####[facility] [address] [place], [address] Limited echocardiogram repor tOrdered By: Sunil Faye on 12-15-2024 Study report [facility] Natriuretic peptide.B prohor efrem N-Terminal [Mass/volume] in Serum or PlasmaOrdered By: Payal Weldon on 12-15-2024 Natriuretic peptide.B prohormone N-Terminal [Mass/Vol] 1961 pg/mL High <1800 [facility] Partial Thromboplast Timeon 12-15-2024 aPTT Coag (Bld) [Time] 222.8 s Invalid Interpretation Code 24.1-36.2 [facility] Comment on above: Order Comment: CRITI KENNEY VALUE CALLED TO sandy archer12/15/24 Indra Huynh.RESULTS READ BACK BY same Performed By: #### L 100.0100, L300.4310, L300.3900, L503.7505, L500.2500, L501.4021 ####[facility] [address] [place], [address] Pro- Brain NATRIURETIC PEPTI Sharon 12-15-2024 Natriuretic peptide B (Bld) [Mass/Vol] 1961 pg/mL High <=1800 [facility] Comment on above: Result Comment: Hear t Failure Unlikely: < 300 pg/mLHeart Failure Likely< 50 Years: > 450 pg/mL50-75 Years: > 900 pg/mL>75 Years: > 1800 pg/mL Performed By: #### L 100.0100, L300.4310, L300.3900, L503.7505, L500.2500, L501.4021 ####[facility] [address] [place], [place], [id number] Prothrombin Time w/INRon INR Coag (PPP) [Relative time] 1.3 {INR} Normal [facility] Comment on above: Order Comment: CRITI KENNEY VALUE CALLED TO sandy archer12/15/24 [facility]RESULTS READ BACK BY same Performed By: #### L 100.0100, L300.4310, L300.3900, L503.7505, L500.2500, L501.4021 ####[facility] [address] [place], [address] PT Coag (PPP) [Time] 16.8 s High 11.7-14.9 [facility] Comment on above: Order Comment: CRITI KENNEY VALUE CALLED TO sandy archer12/15/24 1355 Lexii Huynh.RESULTS READ BACK BY same Performed By: #### L 100.0100, L300.4310, L300.3900, L503.7505, L500.2500, L501.4021 ####[facility] [address] [place], [place], [id number] Prothrombin timeOrdered By: Payal Weldon on 12-15-2024 PT Coag (PPP) [Time] 16.8 s High 11.7-14.9 [facility] Troponin T HS 2 HRon 025 Trop T High Sen 1199 ng/L Invalid Interpretation Code <=22 [facility] Comment on above: Order Comment: WAS T O BE DRAWN AT 1411 STILL IN ER AT 1440 CALLED ER [facility] THEY'RE BUSY BUT SHELL ELT THE NURSE KNOW Result Comment: Crit ical Result(s) Called at 1718: by:MONICA ANTONIO. ??Results read back by same. Performed By: #### L 499.0042 ####[facility] [address] [place], [place], [address] Troponin T HS 4 HRon 025 Trop T High Sen 1115 ng/L Invalid Interpretation Code <=22 [facility] Comment on above: Result Comment: Crit ical result called 12/15/2024-20:19 by Seymour Mcclure. Results read back by same.Hemolysis present, Results??could be affected.??Critical Result(s) Called at: by:??Results read back bysame. Performed By: #### L 499.0043 ####[facility] [address] [place], [place], [address] Troponin T.cardiac [Mass/vol ume] in Serum or Plasma by High sensitivity methodOrdered By: Payal Weldon on 12-15-2024 Troponin T.cardiac High sensitivity method [Mass/Vol] 1115 ng/L High <22 [facility] Troponin T.cardiac High sensitivity method [Mass/Vol] 1199 ng/L High <22 [facility] Troponin T.cardiac High sensitivity method [Mass/Vol] 1137 ng/L High <22 [facility] Cardiac Cath Interventionon 12-14-2024 Cardiac Cath Intervention Normal [facility] Absolute lymphocyte countOrd ered By: Boyd Rock on 12-13-2024 Lymphocytes Auto (Unsp spec) [#/Vol] 1.28 10*3/uL 0.83-4.51 [facility] Anion gap in Serum or Plasma Ordered By: Boyd Rock on 12-13-2024 Anion gap [Moles/Vol] 21 mmol/L High 5-15 [facility] Automated lymphocyte count a s percentage of total leukocytesOrdered By: Boyd Rock on 12-13-2024 Lymphocytes/100 WBC Auto (Unsp spec) 9.3 % Low 19-41 [facility] BUN/creatinine ratioOrdered By: Boyd Rock on 12-13-2024 Urea nitrogen/Creatinine [Mass ratio] 18.7 mg/mg 10-20 [facility] Basophil percentageOrdered B y: Boyd Rock on 12-13-2024 Basophils/100 WBC (Bld) 0.4 % 0-1 [facility] Bilirubin, totalOrdered By: Lupesharpsvillebrittni Rock on 12-13-2024 Bilirubin [Mass/Vol] 1.60 mg/dL High 0.00-1.30 [facility] Carbon dioxide, total [Moles /volume] in Central venous bloodOrdered By: Boyd Rock on 12-13-2024 CO2 [Moles/Vol] 15.7 mmol/L Low 21.0-32.0 [facility] Chloride assayOrdered By: Susanna Rock on 12-13-2024 Chloride [Moles/Vol] 93 mmol/L Low 98-108 [facility] Eosinophil percentageOrdered By: Boyd Rock on 12-13-2024 Eosinophils/100 WBC (Bld) 1.5 % 0-5 [facility] Erythrocyte distribution wid th ratioOrdered By: Boyd Rock on 12-13-2024 Erythrocyte distribution width (RBC) [Ratio] 14.3 % 11.6-14.6 [facility] Erythrocyte distribution wid th standard deviationOrdered By: Boyd Rock on 12-13-2024 Erythrocyte distribution width (RBC) [Ratio] 45.2 fl High 35.1-43.9 [facility] Glomerular filtration rate ( GFR) estimation/1.73 sq m using serum, plasma, or whole bOrdered By: Boyd Rock on 12-13-2024 GFR/1.73 sq M.predicted among non-blacks MDRD (S/P/Bld) [Vol rate/Area] 19 mL/min/{1.73_m2} Low >60 [facility] Hematocrit Auto (Bld) [Volum e fraction]Ordered By: Boyd Rock on 12-13-2024 Hematocrit (Bld) [Volume fraction] 35.9 % Low 40-54 [facility] Hemoglobin measurementOrdere d By: Boyd Rock on 12-13-2024 Hemoglobin (Bld) [Mass/Vol] 11.8 g/dL Low 13.0-16.5 [facility] Immature granulocytes/100 WB C Auto (Bld)Ordered By: Boyd Rock on 12-13-2024 Immature granulocytes/100 WBC (Bld) 0.700 % 0.0-0.9 [facility] MCV (mean corpuscular volume ) determinationOrdered By: Boyd Rock on 12-13-2024 MCV (RBC) [Entitic vol] 87.6 fL 80-94 [facility] Mean corpuscular hemoglobin (MCH) determinationOrdered By: andrés Rock on 12-13-2024 MCH (RBC) [Entitic mass] 28.8 pg 27.0-32.0 [facility] Monocyte percentageOrdered B y: Boyd Rock on 12-13-2024 Monocytes/100 WBC (Bld) 8.7 % 0-10 [facility] Neutrophil percentageOrdered By: andrés Rock on 12-13-2024 Neutrophils/100 WBC (Bld) 79.4 % High 47-70 [facility] No Panel InformationOrdered By: andrés Rock on 12-13-2024 29 U/L <38 [facility] Platelet countOrdered By: Susanna Rock on 12-13-2024 Platelets (Bld) [#/Vol] 199 10*3/uL 150-450 [facility] Potassium measurement (mass/ volume)Ordered By: Boyd Rock on 12-13-2024 Potassium (Unsp spec) [Mass/Vol] 5.1 mmol/L 3.3-5.1 [facility] RBC Auto (Bld) [#/Vol]Ordere d By: Boyd Rock on 12-13-2024 RBC (Bld) [#/Vol] 4.10 10*6/uL Low 4.6-6.2 [facility] Serum creatinine measurement (mass/volume)Ordered By: Boyd Rock on 12-13-2024 Creatinine [Mass/Vol] 3.18 mg/dL High 0.70-1.20 [facility] Serum globulin measurementOr dered By: Boyd Rock on 12-13-2024 Globulin (S) [Mass/Vol] 4.2 g/dL 2.2-4.2 [facility] Serum glucose measurement (m ass/volume)Ordered By: Boyd Rock on 12-13-2024 Glucose [Mass/Vol] 289 mg/dL High 70-99 [facility] Serum or plasma alanine guerrero otransferase (ALT) measurementOrdered By: Boyd Rock on 12-13-2024 ALT [Catalytic activity/Vol] 22 U/L <47 [facility] Serum or plasma albumin francine urement (mass/volume)Ordered By: Boyd Rock on 12-13-2024 Albumin [Mass/Vol] 4.1 g/dL 3.4-4.8 [facility] Serum or plasma albumin/glob ulin mass ratioOrdered By: Boyd Rock 12-13-2024 Albumin/Globulin [Mass ratio] 1.0 {ratio} 0.9-2.4 [facility] Serum or plasma alkaline bell sphatase measurementOrdered By: Boyd Rock 12-13-2024 ALP [Catalytic activity/Vol] 147 U/L High 40-129 [facility] Serum or plasma calcium francine urement (mass/volume)Ordered By: Boyd Rock on 12-13-2024 Calcium [Mass/Vol] 9.7 mg/dL 7.6-11.0 [facility] Serum or plasma urea nitroge n measurement (mass/volume)Ordered By: Boyd Rock on 12-13-2024 Urea nitrogen [Mass/Vol] 59 mg/dL High 4-19 [facility] Sodium levelOrdered By: Lupe Rock on 12-13-2024 Sodium [Moles/Vol] 130 mmol/L Low 133-145 [facility] T4 freeOrdered By: Boyd Rock on 12-13-2024 Free T4 [Mass/Vol] 1.40 ng/dL 0.76-1.46 [facility] Total proteinOrdered By: Anastacio Rock on 12-13-2024 Protein [Mass/Vol] 8.3 g/dL 5.9-8.4 [facility] White blood cell (WBC) count Ordered By: Boyd Rock on 12-13-2024 WBC (Bld) [#/Vol] 13.7 10*3/uL High 4.4-11.0 [facility] Anion gap in Serum or Plasma Ordered By: Gustabo Pérez on 12-12-2024 Anion gap [Moles/Vol] 17 mmol/L High 5-15 [facility] BUN/creatinine ratioOrdered By: Gustabo Pérez on 12-12-2024 Urea nitrogen/Creatinine [Mass ratio] 17.9 mg/mg 02-19 [facility] Basic Metabolic Profile (BMP )on 12-12-2024 BUN/CRE 17.9 RATIO Normal 02-19 [facility] Comment on above: Performed By: #### L 500.2500 ####[facility] [address] [place], [address] Calcium [Mass/Vol] 9.6 mg/dL Normal 7.6-11.0 [facility] Comment on above: Performed By: #### L 500.2500 ####[facility] [address] [place], [address] Chloride [Moles/Vol] 93 mmol/L Low 98-108 [facility] Comment on above: Performed By: #### L 500.2500 ####[facility] [address] [place], [address] CO2 [Moles/Vol] 18.2 mmol/L Low 21.0-32.0 [facility] Comment on above: Performed By: #### L 500.2500 ####[facility] [address] [place], [address] Creatinine [Mass/Vol] 3.15 mg/dL High 0.70-1.20 [facility] Comment on above: Performed By: #### L 500.2500 ####[facility] [address] [place], [address] GAP 17 High 5-15 [facility] Comment on above: Performed By: #### L 500.2500 ####[facility] [address] [place], [address] GFR/1.73 sq M.predicted among non-blacks MDRD (S/P/Bld) [Vol rate/Area] 19 mL/min/{1.73_m2} Low >60 [facility] Comment on above: Result Comment: mL/m in/1.73m2 CKD-EPI Creatinine Equation (2020) Performed By: #### L 500.2500 ####[facility] [address] [place], [address] Glucose [Mass/Vol] 289 mg/dL High 70-99 [facility] Comment on above: Performed By: #### L 500.2500 ####[facility] [address] [place], [address] Potassium [Moles/Vol] 5.0 mmol/L Normal 3.3-5.1 [facility] Comment on above: Result Comment: Hemo lysis present, Results??could be affected.?? Performed By: #### L 500.2500 ####[facility] [address] [place], [address] Sodium [Moles/Vol] 128 mmol/L Low 133-145 [facility] Comment on above: Performed By: #### L 500.2500 ####[facility] [address] [place], [address] Urea nitrogen [Mass/Vol] 56 mg/dL High - [facility] Comment on above: Performed By: #### L 500.2500 ####[facility] [address] [place], [address] Carbon dioxide, total [Moles /volume] in Central venous bloodOrdered By: Gustabo Pérez on 12-12-2024 CO2 [Moles/Vol] 18.2 mmol/L Low 21.0-32.0 [facility] Cardiology Visit Reporton Cardiology Visit Report Normal [facility] Chloride assayOrdered By: Lydia Pérez on 12-12-2024 Chloride [Moles/Vol] 93 mmol/L Low 98-108 [facility] Glomerular filtration rate ( GFR) estimation/1.73 sq m using serum, plasma, or whole bOrdered By: Gustabo Pérez on 12-12-2024 GFR/1.73 sq M.predicted among non-blacks MDRD (S/P/Bld) [Vol rate/Area] 19 mL/min/{1.73_m2} Low >60 [facility] Potassium measurement (mass/ volume)Ordered By: Gustabo Pérez on 12-12-2024 Potassium (Unsp spec) [Mass/Vol] 5.0 mmol/L 3.3-5.1 [facility] Serum creatinine measurement (mass/volume)Ordered By: Gustabo Pérez on 12-12-2024 Creatinine [Mass/Vol] 3.15 mg/dL High 0.70-1.20 [facility] Serum glucose measurement (m ass/volume)Ordered By: Gustabo Pérez on 12-12-2024 Glucose [Mass/Vol] 289 mg/dL High 70-99 [facility] Serum or plasma calcium francine urement (mass/volume)Ordered By: Gustabo Pérez on 12-12-2024 Calcium [Mass/Vol] 9.6 mg/dL 7.6-11.0 [facility] Serum or plasma urea nitroge n measurement (mass/volume)Ordered By: Gustabo Pérez on 12-12-2024 Urea nitrogen [Mass/Vol] 56 mg/dL High -19 [facility] Sodium levelOrdered By: Gustabo Pérez on 12-12-2024 Sodium [Moles/Vol] 128 mmol/L Low 133-145 [facility] Cardiac Cath Interventionon 12-11-2024 Cardiac Cath Intervention Normal [facility] Absolute lymphocyte countOrd ered By: Shaan Santos on 12-08-2024 Lymphocytes Auto (Unsp spec) [#/Vol] 1.20 10*3/uL 0.83-4.51 [facility] Anion gap in Serum or Plasma Ordered By: Shaan Santos on 12-08-2024 Anion gap [Moles/Vol] 18 mmol/L High 5-15 [facility] Automated lymphocyte count a s percentage of total leukocytesOrdered By: Shaan Santos on 12-08-2024 Lymphocytes/100 WBC Auto (Unsp spec) 11.4 % Low 19-41 [facility] BUN/creatinine ratioOrdered By: Shaan Santos on 12-08-2024 Urea nitrogen/Creatinine [Mass ratio] 15.6 mg/mg 10-20 [facility] Basic Metabolic Profile (BMP )on 12-08-2024 BUN/CRE 15.6 RATIO Normal 10-20 [facility] Comment on above: Performed By: #### L 100.0100, L500.2500 ####[facility] [address] [place], [address] Calcium [Mass/Vol] 9.6 mg/dL Normal 7.6-11.0 [facility] Comment on above: Performed By: #### L 100.0100, L500.2500 ####[facility] [address] [place], [address] Chloride [Moles/Vol] 95 mmol/L Low 98-108 [facility] Comment on above: Performed By: #### L 100.0100, L500.2500 ####[facility] [address] [place], [address] CO2 [Moles/Vol] 21.2 mmol/L Normal 21.0-32.0 [facility] Comment on above: Performed By: #### L 100.0100, L500.2500 ####[facility] [address] [place], [address] Creatinine [Mass/Vol] 2.84 mg/dL High 0.70-1.20 [facility] Comment on above: Performed By: #### L 100.0100, L500.2500 ####[facility] [address] [place], [address] ECRCL 24.45 ml/min Low 50-250 [facility] Comment on above: Performed By: #### L 100.0100, L500.2500 ####[facility] [address] [place], [address] GAP 18 High 5-15 [facility] Comment on above: Performed By: #### L 100.0100, L500.2500 ####[facility] [address] [place], [address] GFR/1.73 sq M.predicted among non-blacks MDRD (S/P/Bld) [Vol rate/Area] 22 mL/min/{1.73_m2} Low >60 [facility] Comment on above: Result Comment: mL/m in/1.73m2 CKD-EPI Creatinine Equation (2020) Performed By: #### L 100.0100, L500.2500 ####[facility] [address] [place], [address] Glucose [Mass/Vol] 178 mg/dL High 70-99 [facility] Comment on above: Performed By: #### L 100.0100, L500.2500 ####[facility] [address] [place], [address] Potassium [Moles/Vol] 3.4 mmol/L Normal 3.3-5.1 [facility] Comment on above: Performed By: #### L 100.0100, L500.2500 ####[facility] [address] [place], [address] Sodium [Moles/Vol] 134 mmol/L Normal 133-145 [facility] Comment on above: Performed By: #### L 100.0100, L500.2500 ####[facility] [address] [place], [address] Urea nitrogen [Mass/Vol] 44 mg/dL High 4-19 [facility] Comment on above: Performed By: #### L 100.0100, L500.2500 ####[facility] [address] [place], [address] BUN Normal - [facility] Comment on above: Result Comment: Canc elled via OM: Order cancelled - Patient discharged Performed By: #### L 500.2500, L100.0100 ####[facility] [address] [place], [address] BUN/CRE Normal - [facility] Comment on above: Result Comment: Canc elled via OM: Order cancelled - Patient discharged Performed By: #### L 500.2500, L100.0100 ####[facility] [address] [place], [address] Calcium Normal 7.6-11.0 [facility] Comment on above: Result Comment: Canc elled via OM: Order cancelled - Patient discharged Performed By: #### L 500.2500, L100.0100 ####[facility] [address] [place], [address] CL Normal 98-108 [facility] Comment on above: Result Comment: Canc elled via OM: Order cancelled - Patient discharged Performed By: #### L 500.2500, L100.0100 ####[facility] [address] [place], [address] CO2 Normal 21.0-32.0 [facility] Comment on above: Result Comment: Canc elled via OM: Order cancelled - Patient discharged Performed By: #### L 500.2500, L100.0100 ####[facility] [address] [place], [address] CREAT,SERUM Normal 0.70-1.20 [facility] Comment on above: Result Comment: Canc elled via OM: Order cancelled - Patient discharged Performed By: #### L 500.2500, L100.0100 ####[facility] [address] [place], [address] eGFR Normal >60 [facility] Comment on above: Result Comment: Canc elled via OM: Order cancelled - Patient discharged Performed By: #### L 500.2500, L100.0100 ####[facility] [address] [place], [address] GAP Normal 5-15 [facility] Comment on above: Result Comment: Canc elled via OM: Order cancelled - Patient discharged Performed By: #### L 500.2500, L100.0100 ####[facility] [address] [place], [address] GLU Normal 70-99 [facility] Comment on above: Result Comment: Canc elled via OM: Order cancelled - Patient discharged Performed By: #### L 500.2500, L100.0100 ####[facility] [address] [place], [address] Potassium Normal 3.3-5.1 [facility] Comment on above: Result Comment: Canc elled via OM: Order cancelled - Patient discharged Performed By: #### L 500.2500, L100.0100 ####[facility] [address] [place], [address] Basic Metabolic Profile (BMP) Normal 133-145 [facility] Comment on above: Result Comment: Canc elled via OM: Order cancelled - Patient discharged Performed By: #### L 500.2500, L100.0100 ####[facility] [address] [place], [address] Basophil percentageOrdered B y: Shaan Santos on 12-08-2024 Basophils/100 WBC (Bld) 0.5 % 0-1 [facility] Bedside Glucoseon 12-08-2024 FINGERSTICK GLU 249 mg/dL High 74-106 [facility] Comment on above: Result Comment: WILDA GEMENT OF PATIENT CARE PER NURSING PROTOCOL Performed By: #### L 501.080 ####[facility] [address] [place], [address] FINGERSTICK GLU 185 mg/dL High 74-106 [facility] Comment on above: Result Comment: WILDA GEMENT OF PATIENT CARE PER NURSING PROTOCOL Performed By: #### L 501.080 ####[facility] [address] [place], [address] FINGERSTICK GLU 222 mg/dL High 74-106 [facility] Comment on above: Result Comment: WILDA GEMENT OF PATIENT CARE PER NURSING PROTOCOL Performed By: #### L 501.080 ####[facility] [address] [place], [address] CBC W/Diff, Automatedon Absolute Lymph 1.20 X10 3/uL Normal 0.83-4.51 [facility] Comment on above: Performed By: #### L 100.0100, L500.2500 ####[facility] [address] [place], [address] Absolute Neut 7.8 X10 3/uL High 2.0-7.7 [facility] Comment on above: Performed By: #### L 100.0100, L500.2500 ####[facility] [address] [place], [address] Basophils/100 WBC (Bld) 0.5 % Normal 0-1 [facility] Comment on above: Performed By: #### L 100.0100, L500.2500 ####[facility] [address] [place], [address] Eosinophils/100 WBC (Bld) 1.0 % Normal 0-5 [facility] Comment on above: Performed By: #### L 100.0100, L500.2500 ####[facility] [address] [place], [address] Erythrocyte distribution width (RBC) [Ratio] 13.4 % Normal 11.6-14.6 [facility] Comment on above: Performed By: #### L 100.0100, L500.2500 ####[facility] [address] [place], [address] Hematocrit (Bld) [Volume fraction] 39.2 % Low 40-54 [facility] Comment on above: Performed By: #### L 100.0100, L500.2500 ####[facility] [address] [place], [address] Hemoglobin (Bld) [Mass/Vol] 12.9 g/dL Low 13.0-16.5 [facility] Comment on above: Performed By: #### L 100.0100, L500.2500 ####[facility] [address] [place], [address] IG% 0.900 Normal 0.0-0.9 [facility] Comment on above: Result Comment: IG% - Immature Granulocytes (promyelocytes, myelocytes andmetamyelocytes) > 1% indicates that a LEFT SHIFT is Present. Performed By: #### L 100.0100, L500.2500 ####[facility] [address] [place], [address] Lymphocytes/100 WBC (Bld) 11.4 % Low 19-41 [facility] Comment on above: Performed By: #### L 100.0100, L500.2500 ####[facility] [address] [place], [address] MCH (RBC) [Entitic mass] 28.9 pg Normal 27.0-32.0 [facility] Comment on above: Performed By: #### L 100.0100, L500.2500 ####[facility] [address] [place], [address] MCHC (RBC) [Mass/Vol] 32.9 g/dL Normal 32-36 [facility] Comment on above: Performed By: #### L 100.0100, L500.2500 ####[facility] [address] [place], [address] MCV (RBC) [Entitic vol] 87.7 fL Normal 80-94 [facility] Comment on above: Performed By: #### L 100.0100, L500.2500 ####[facility] [address] [place], [address] Monocytes/100 WBC (Bld) 12.1 % High 0-10 [facility] Comment on above: Performed By: #### L 100.0100, L500.2500 ####[facility] [address] [place], [address] Neutrophils/100 WBC (Bld) 74.1 % High 47-70 [facility] Comment on above: Performed By: #### L 100.0100, L500.2500 ####[facility] [address] [place], [address] Nucleated RBC (Bld) [#/Vol] 0 10*3/uL Normal 0-5 [facility] Comment on above: Performed By: #### L 100.0100, L500.2500 ####[facility] [address] [place], [address] Platelet mean volume (Bld) [Entitic vol] 13.2 fL High 6.2-12.0 [facility] Comment on above: Performed By: #### L 100.0100, L500.2500 ####[facility] [address] [place], [address] Platelets (Bld) [#/Vol] 178 10*3/uL Normal 150-450 [facility] Comment on above: Performed By: #### L 100.0100, L500.2500 ####[facility] [address] [place], [address] RBC (Bld) [#/Vol] 4.47 10*6/uL Low 4.6-6.2 [facility] Comment on above: Performed By: #### L 100.0100, L500.2500 ####[facility] [address] [place], [address] RDW SD 42.8 fl Normal 35.1-43.9 [facility] Comment on above: Performed By: #### L 100.0100, L500.2500 ####[facility] [address] [place], [address] WBC (Bld) [#/Vol] 10.5 10*3/uL Normal 4.4-11.0 [facility] Comment on above: Performed By: #### L 100.0100, L500.2500 ####[facility] [address] [place], [address] Absolute Neut Normal 2.0-7.7 [facility] Comment on above: Result Comment: Canc elled via OM: Order cancelled - Patient discharged Performed By: #### L 500.2500, L100.0100 ####[facility] [address] [place], [address] HCT Normal 40-54 [facility] Comment on above: Result Comment: Canc elled via OM: Order cancelled - Patient discharged Performed By: #### L 500.2500, L100.0100 ####[facility] [address], [address] HGB Normal 13.0-16.5 [facility] Comment on above: Result Comment: Canc elled via OM: Order cancelled - Patient discharged Performed By: #### L 500.2500, L100.0100 ####[facility] [address] [place], [address] MCH Normal 27.0-32.0 [facility] Comment on above: Result Comment: Canc elled via OM: Order cancelled - Patient discharged Performed By: #### L 500.2500, L100.0100 ####[facility] [address] [place], [address] MCHC Normal 32-36 [facility] Comment on above: Result Comment: Canc elled via OM: Order cancelled - Patient discharged Performed By: #### L 500.2500, L100.0100 ####[facility] [address] [place], [address] MCV Normal 80-94 [facility] Comment on above: Result Comment: Canc elled via OM: Order cancelled - Patient discharged Performed By: #### L 500.2500, L100.0100 ####[facility] [address] [place], [address] NEUT% Normal 47-70 [facility] Comment on above: Result Comment: Canc elled via OM: Order cancelled - Patient discharged Performed By: #### L 500.2500, L100.0100 ####[facility] [address] [place], [address] PLT Normal 150-450 [facility] Comment on above: Result Comment: Canc elled via OM: Order cancelled - Patient discharged Performed By: #### L 500.2500, L100.0100 ####[facility] [address] [place], [address] RBC Normal 4.6-6.2 [facility] Comment on above: Result Comment: Canc elled via OM: Order cancelled - Patient discharged Performed By: #### L 500.2500, L100.0100 ####[facility] [address] [place], [address] RDW CV Normal 11.6-14.6 [facility] Comment on above: Result Comment: Canc elled via OM: Order cancelled - Patient discharged Performed By: #### L 500.2500, L100.0100 ####[facility] [address] [place], [address] RDW SD Normal 35.1-43.9 [facility] Comment on above: Result Comment: Canc elled via OM: Order cancelled - Patient discharged Performed By: #### L 500.2500, L100.0100 ####[facility] [address] [place], [address] WBC Normal 4.4-11.0 [facility] Comment on above: Result Comment: Canc elled via OM: Order cancelled - Patient discharged Performed By: #### L 500.2500, L100.0100 ####[facility] [address] [place], [address] Carbon dioxide, total [Moles /volume] in Central venous bloodOrdered By: Shaan Santos on 12-08-2024 CO2 [Moles/Vol] 21.2 mmol/L 21.0-32.0 [facility] Chloride assayOrdered By: Jason Santos on 12-08-2024 Chloride [Moles/Vol] 95 mmol/L Low 98-108 [facility] Eosinophil percentageOrdered By: Shaan Santos on 12-08-2024 Eosinophils/100 WBC (Bld) 1.0 % 0-5 [facility] Erythrocyte distribution wid th ratioOrdered By: Shaan Santos on 12-08-2024 Erythrocyte distribution width (RBC) [Ratio] 13.4 % 11.6-14.6 [facility] Erythrocyte distribution wid th standard deviationOrdered By: Shaan Santos on 12-08-2024 Erythrocyte distribution width (RBC) [Ratio] 42.8 fl 35.1-43.9 [facility] Glomerular filtration rate ( GFR) estimation/1.73 sq m using serum, plasma, or whole bOrdered By: Shaan Santos on 12-08-2024 GFR/1.73 sq M.predicted among non-blacks MDRD (S/P/Bld) [Vol rate/Area] 22 mL/min/{1.73_m2} Low >60 [facility] Gl[facility] deOrdered By: Alex Sanon on 12-08-2024 Glucose [Mass/Vol] 249 mg/dL High 74-106 [facility] Hematocrit Auto (Bld) [Volum e fraction]Ordered By: Shaan Santos on 12-08-2024 Hematocrit (Bld) [Volume fraction] 39.2 % Low 40-54 [facility] Hemoglobin measurementOrdere d By: Shaan Santos on 12-08-2024 Hemoglobin (Bld) [Mass/Vol] 12.9 g/dL Low 13.0-16.5 [facility] Immature granulocytes/100 WB C Auto (Bld)Ordered By: Shaan Santos on 12-08-2024 Immature granulocytes/100 WBC (Bld) 0.900 % 0.0-0.9 [facility] MCV (mean corpuscular volume ) determinationOrdered By: Shaan Santos on 12-08-2024 MCV (RBC) [Entitic vol] 87.7 fL 80-94 [facility] Mean corpuscular hemoglobin (MCH) determinationOrdered By: Shaan Santos on 12-08-2024 MCH (RBC) [Entitic mass] 28.9 pg 27.0-32.0 [facility] Monocyte percentageOrdered B y: Shaan Santos on 12-08-2024 Monocytes/100 WBC (Bld) 12.1 % High 0-10 [facility] Neutrophil percentageOrdered By: Shaan Santos on 12-08-2024 Neutrophils/100 WBC (Bld) 74.1 % High 47-70 [facility] Platelet countOrdered By: Jason Santos on 12-08-2024 Platelets (Bld) [#/Vol] 178 10*3/uL 150-450 [facility] Potassium measurement (mass/ volume)Ordered By: Shaan Santos on 12-08-2024 Potassium (Unsp spec) [Mass/Vol] 3.4 mmol/L 3.3-5.1 [facility] RBC Auto (Bld) [#/Vol]Ordere d By: Shaan Santos on 12-08-2024 RBC (Bld) [#/Vol] 4.47 10*6/uL Low 4.6-6.2 [facility] Serum creatinine measurement (mass/volume)Ordered By: Shaan Santos on 12-08-2024 Creatinine [Mass/Vol] 2.84 mg/dL High 0.70-1.20 [facility] Serum glucose measurement (m ass/volume)Ordered By: Shaan Santos on 12-08-2024 Glucose [Mass/Vol] 178 mg/dL High 70-99 [facility] Serum or plasma calcium francine urement (mass/volume)Ordered By: Shaan Santos on 12-08-2024 Calcium [Mass/Vol] 9.6 mg/dL 7.6-11.0 [facility] Serum or plasma urea nitroge n measurement (mass/volume)Ordered By: Shaan Santos on 12-08-2024 Urea nitrogen [Mass/Vol] 44 mg/dL High 4-19 [facility] Sodium levelOrdered By: Shaan Santos on 12-08-2024 Sodium [Moles/Vol] 134 mmol/L 133-145 [facility] White blood cell (WBC) count Ordered By: Shaan Santos on 12-08-2024 WBC (Bld) [#/Vol] 10.5 10*3/uL 4.4-11.0 [facility] 12 Lead EKGon 12-07-2024 12 Lead EKG Normal [facility] Absolute lymphocyte countOrd ered By: Juli German on 12-07-2024 Lymphocytes Auto (Unsp spec) [#/Vol] 0.94 10*3/uL 0.83-4.51 [facility] Absolute lymphocyte countOrd ered By: Boyd Rock on 12-07-2024 Lymphocytes Auto (Unsp spec) [#/Vol] 1.19 10*3/uL 0.83-4.51 [facility] Anion gap in Serum or Plasma Ordered By: Juli German on 12-07-2024 Anion gap [Moles/Vol] 18 mmol/L High 09-14 [facility] Anion gap in Serum or Plasma Ordered By: Boyd Rock on 12-07-2024 Anion gap [Moles/Vol] 16 mmol/L High - [facility] Automated lymphocyte count a s percentage of total leukocytesOrdered By: Juli German on 12-07-2024 Lymphocytes/100 WBC Auto (Unsp spec) 7.9 % Low [facility] Automated lymphocyte count a s percentage of total leukocytesOrdered By: Boyd Rock on 12-07-2024 Lymphocytes/100 WBC Auto (Unsp spec) 11.4 % Low [facility] BUN/creatinine ratioOrdered By: Juli German on 12-07-2024 Urea nitrogen/Creatinine [Mass ratio] 14.5 mg/mg 02-19 [facility] BUN/creatinine ratioOrdered By: Boyd Rock on 12-07-2024 Urea nitrogen/Creatinine [Mass ratio] 15.3 mg/mg 02-19 [facility] Basic Metabolic Profile (BMP )on 12-07-2024 BUN/CRE 14.5 RATIO Normal - [facility] Comment on above: Performed By: #### L 501.4021, L100.0100, L500.2500 ####[facility] [address] [place], [address] Calcium [Mass/Vol] 9.5 mg/dL Normal 7.6-11.0 [facility] Comment on above: Performed By: #### L 501.4021, L100.0100, L500.2500 ####[facility] [address] [place], [address] Chloride [Moles/Vol] 94 mmol/L Low 98-108 [facility] Comment on above: Performed By: #### L 501.4021, L100.0100, L500.2500 ####[facility] [address] [place], [address] CO2 [Moles/Vol] 20.9 mmol/L Low 21.0-32.0 [facility] Comment on above: Performed By: #### L 501.4021, L100.0100, L500.2500 ####[facility] [address] [place], [address] Creatinine [Mass/Vol] 2.76 mg/dL High 0.70-1.20 [facility] Comment on above: Performed By: #### L 501.4021, L100.0100, L500.2500 ####[facility] [address] [place], [address] ECRCL 25.62 ml/min Low 50-250 [facility] Comment on above: Performed By: #### L 501.4021, L100.0100, L500.2500 ####[facility] [address] [place], [address] GAP 18 High 5-15 [facility] Comment on above: Performed By: #### L 501.4021, L100.0100, L500.2500 ####[facility] [address] [place], [address] GFR/1.73 sq M.predicted among non-blacks MDRD (S/P/Bld) [Vol rate/Area] 23 mL/min/{1.73_m2} Low >60 [facility] Comment on above: Result Comment: mL/m in/1.73m2 CKD-EPI Creatinine Equation (2020) Performed By: #### L 501.4021, L100.0100, L500.2500 ####[facility] [address] [place], [address] Glucose [Mass/Vol] 209 mg/dL High 70-99 [facility] Comment on above: Performed By: #### L 501.4021, L100.0100, L500.2500 ####[facility] [address] [place], [address] Potassium [Moles/Vol] 4.1 mmol/L Normal 3.3-5.1 [facility] Comment on above: Performed By: #### L 501.4021, L100.0100, L500.2500 ####[facility] [address] [place], [address] Sodium [Moles/Vol] 132 mmol/L Low 133-145 [facility] Comment on above: Performed By: #### L 501.4021, L100.0100, L500.2500 ####[facility] [address] [place], [address] Urea nitrogen [Mass/Vol] 40 mg/dL High 4-19 [facility] Comment on above: Performed By: #### L 501.4021, L100.0100, L500.2500 ####[facility] [address] [place], [address] BUN Normal -19 [facility] Comment on above: Result Comment: Canc elled via OM: Order cancelled - Patient discharged Performed By: #### L 500.2500, L100.0100 ####[facility] [address] [place], [address] BUN/CRE Normal 10-20 [facility] Comment on above: Result Comment: Canc elled via OM: Order cancelled - Patient discharged Performed By: #### L 500.2500, L100.0100 ####[facility] [address] [place], [address] Calcium Normal 7.6-11.0 [facility] Comment on above: Result Comment: Canc elled via OM: Order cancelled - Patient discharged Performed By: #### L 500.2500, L100.0100 ####[facility] [address] [place], [address] CL Normal 98-108 [facility] Comment on above: Result Comment: Canc elled via OM: Order cancelled - Patient discharged Performed By: #### L 500.2500, L100.0100 ####[facility] [address] [place], [address] CO2 Normal 21.0-32.0 [facility] Comment on above: Result Comment: Canc elled via OM: Order cancelled - Patient discharged Performed By: #### L 500.2500, L100.0100 ####[facility] [address] [place], [address] CREAT,SERUM Normal 0.70-1.20 [facility] Comment on above: Result Comment: Canc elled via OM: Order cancelled - Patient discharged Performed By: #### L 500.2500, L100.0100 ####[facility] [address] [place], [address] eGFR Normal >60 [facility] Comment on above: Result Comment: Canc elled via OM: Order cancelled - Patient discharged Performed By: #### L 500.2500, L100.0100 ####[facility] [address] [place], [address] GAP Normal 5-15 [facility] Comment on above: Result Comment: Canc elled via OM: Order cancelled - Patient discharged Performed By: #### L 500.2500, L100.0100 ####[facility] [address] [place], [address] GLU Normal 70-99 [facility] Comment on above: Result Comment: Canc elled via OM: Order cancelled - Patient discharged Performed By: #### L 500.2500, L100.0100 ####[facility] [address] [place], [address] Potassium Normal 3.3-5.1 [facility] Comment on above: Result Comment: Canc elled via OM: Order cancelled - Patient discharged Performed By: #### L 500.2500, L100.0100 ####[facility] [address] [place], [address] Basic Metabolic Profile (BMP) Normal 133-145 [facility] Comment on above: Result Comment: Canc elled via OM: Order cancelled - Patient discharged Performed By: #### L 500.2500, L100.0100 ####[facility] [address] [place], [address] Basophil percentageOrdered B y: Juli German on 12-07-2024 Basophils/100 WBC (Bld) 0.3 % 0-1 [facility] Basophil percentageOrdered B y: Boyd Rock on 12-07-2024 Basophils/100 WBC (Bld) 0.2 % 0-1 [facility] Bedside Glucoseon 12-07-2024 FINGERSTICK GLU 187 mg/dL High 74-106 [facility] Comment on above: Result Comment: WILDA BARROSO OF PATIENT CARE PER NURSING PROTOCOL Performed By: #### L 501.080 ####[facility] [address] [place], [address] Bilirubin, totalOrdered By: Boyd Rock on 12-07-2024 Bilirubin [Mass/Vol] 1.48 mg/dL High 0.00-1.30 [facility] CBC W/Diff, Automatedon Absolute Lymph 0.94 X10 3/uL Normal 0.83-4.51 [facility] Comment on above: Performed By: #### L 501.4021, L100.0100, L500.2500 ####[facility] [address] [place], [address] Absolute Neut 9.4 X10 3/uL High 2.0-7.7 [facility] Comment on above: Performed By: #### L 501.4021, L100.0100, L500.2500 ####[facility] [address] [place], [address] Basophils/100 WBC (Bld) 0.3 % Normal 0-1 [facility] Comment on above: Performed By: #### L 501.4021, L100.0100, L500.2500 ####[facility] [address] [place], [address] Eosinophils/100 WBC (Bld) 0.6 % Normal 0-5 [facility] Comment on above: Performed By: #### L 501.4021, L100.0100, L500.2500 ####[facility] [address] [place], [address] Erythrocyte distribution width (RBC) [Ratio] 13.4 % Normal 11.6-14.6 [facility] Comment on above: Performed By: #### L 501.4021, L100.0100, L500.2500 ####[facility] [address] [place], [address] Hematocrit (Bld) [Volume fraction] 39.1 % Low 40-54 [facility] Comment on above: Performed By: #### L 501.4021, L100.0100, L500.2500 ####[facility] [address] [place], [address] Hemoglobin (Bld) [Mass/Vol] 13.3 g/dL Normal 13.0-16.5 [facility] Comment on above: Performed By: #### L 501.4021, L100.0100, L500.2500 ####[facility] [address] [place], [address] IG% 0.700 Normal 0.0-0.9 [facility] Comment on above: Result Comment: IG% - Immature Granulocytes (promyelocytes, myelocytes andmetamyelocytes) > 1% indicates that a LEFT SHIFT is Present. Performed By: #### L 501.4021, L100.0100, L500.2500 ####[facility] [address] [place], [address] Lymphocytes/100 WBC (Bld) 7.9 % Low 19-41 [facility] Comment on above: Performed By: #### L 501.4021, L100.0100, L500.2500 ####[facility] [address] [place], [address] MCH (RBC) [Entitic mass] 29.3 pg Normal 27.0-32.0 [facility] Comment on above: Performed By: #### L 501.4021, L100.0100, L500.2500 ####[facility] [address] [place], [address] MCHC (RBC) [Mass/Vol] 34.0 g/dL Normal 32-36 [facility] Comment on above: Performed By: #### L 501.4021, L100.0100, L500.2500 ####[facility] [address] [place], [address] MCV (RBC) [Entitic vol] 86.1 fL Normal 80-94 [facility] Comment on above: Performed By: #### L 501.4021, L100.0100, L500.2500 ####[facility] [address] [place], [address] Monocytes/100 WBC (Bld) 11.5 % High 0-10 [facility] Comment on above: Performed By: #### L 501.4021, L100.0100, L500.2500 ####[facility] [address] [place], [address] Neutrophils/100 WBC (Bld) 79.0 % High 47-70 [facility] Comment on above: Performed By: #### L 501.4021, L100.0100, L500.2500 ####[facility] [address] [place], [address] Nucleated RBC (Bld) [#/Vol] 0 10*3/uL Normal 0-5 [facility] Comment on above: Performed By: #### L 501.4021, L100.0100, L500.2500 ####[facility] [address] [place], [address] Platelet mean volume (Bld) [Entitic vol] 13.0 fL High 6.2-12.0 [facility] Comment on above: Performed By: #### L 501.4021, L100.0100, L500.2500 ####[facility] [address] [place], [address] Platelets (Bld) [#/Vol] 190 10*3/uL Normal 150-450 [facility] Comment on above: Performed By: #### L 501.4021, L100.0100, L500.2500 ####[facility] [address] [place], [address] RBC (Bld) [#/Vol] 4.54 10*6/uL Low 4.6-6.2 [facility] Comment on above: Performed By: #### L 501.4021, L100.0100, L500.2500 ####[facility] [address] [place], [address] RDW SD 41.4 fl Normal 35.1-43.9 [facility] Comment on above: Performed By: #### L 501.4021, L100.0100, L500.2500 ####[facility] [address] [place], [address] WBC (Bld) [#/Vol] 11.9 10*3/uL High 4.4-11.0 [facility] Comment on above: Performed By: #### L 501.4021, L100.0100, L500.2500 ####[facility] [address] [place], [address] Absolute Neut Normal 2.0-7.7 [facility] Comment on above: Result Comment: Canc elled via OM: Order cancelled - Patient discharged Performed By: #### L 500.2500, L100.0100 ####[facility] [address] [place], [address] HCT Normal 40-54 [facility] Comment on above: Result Comment: Canc elled via OM: Order cancelled - Patient discharged Performed By: #### L 500.2500, L100.0100 ####[facility] [address] [place], [address] HGB Normal 13.0-16.5 [facility] Comment on above: Result Comment: Canc elled via OM: Order cancelled - Patient discharged Performed By: #### L 500.2500, L100.0100 ####[facility] [address] [place], [address] MCH Normal 27.0-32.0 [facility] Comment on above: Result Comment: Canc elled via OM: Order cancelled - Patient discharged Performed By: #### L 500.2500, L100.0100 ####[facility] [address] [place], [address] MCHC Normal 32-36 [facility] Comment on above: Result Comment: Canc elled via OM: Order cancelled - Patient discharged Performed By: #### L 500.2500, L100.0100 ####[facility] [address] [place], [address] MCV Normal 80-94 [facility] Comment on above: Result Comment: Canc elled via OM: Order cancelled - Patient discharged Performed By: #### L 500.2500, L100.0100 ####[facility] [address] [place], [address] NEUT% Normal 47-70 [facility] Comment on above: Result Comment: Canc elled via OM: Order cancelled - Patient discharged Performed By: #### L 500.2500, L100.0100 ####[facility] [address] [place], [address] PLT Normal 150-450 [facility] Comment on above: Result Comment: Canc elled via OM: Order cancelled - Patient discharged Performed By: #### L 500.2500, L100.0100 ####[facility] [address] [place], [address] RBC Normal 4.6-6.2 [facility] Comment on above: Result Comment: Canc elled via OM: Order cancelled - Patient discharged Performed By: #### L 500.2500, L100.0100 ####[facility] [address] [place], [address] RDW CV Normal 11.6-14.6 [facility] Comment on above: Result Comment: Canc elled via OM: Order cancelled - Patient discharged Performed By: #### L 500.2500, L100.0100 ####[facility] [address] [place], [address] RDW SD Normal 35.1-43.9 [facility] Comment on above: Result Comment: Canc elled via OM: Order cancelled - Patient discharged Performed By: #### L 500.2500, L100.0100 ####[facility] [address] [place], [address] WBC Normal 4.4-11.0 [facility] Comment on above: Result Comment: Canc elled via OM: Order cancelled - Patient discharged Performed By: #### L 500.2500, L100.0100 ####[facility] [address] [place], [address] Calculated very low density lipoprotein (VLDL) cholesterol measurementOrdered By: Boyd Rock on 12-07-2024 Calculated very low density lipoprotein (VLDL) cholesterol measurement 54 mg/dL High 5-40 [facility] Carbon dioxide, total [Moles /volume] in Central venous bloodOrdered By: Juli German on 12-07-2024 CO2 [Moles/Vol] 20.9 mmol/L Low 21.0-32.0 [facility] Carbon dioxide, total [Moles /volume] in Central venous bloodOrdered By: Boyd Rock on 12-07-2024 CO2 [Moles/Vol] 23.3 mmol/L 21.0-32.0 [facility] Chest PA and Lateralon 12-07 Chest PA and Lateral Normal [facility] Chloride assayOrdered By: Miri German on 12-07-2024 Chloride [Moles/Vol] 94 mmol/L Low 98-108 [facility] Chloride assayOrdered By: Susanna Rock on 12-07-2024 Chloride [Moles/Vol] 96 mmol/L Low 98-108 [facility] D-Dimer Quantitative (DVT/PE )on 12-07-2024 D-DIMER QUANT 1.61 FEU/ug/m Invalid Interpretation Code 0.27-0.49 [facility] Comment on above: Result Comment: D-Di ajit ELEVATED (>0.49): Additional studies and clinicalassessments are indicated to conclude diagnosis of:Deep Vein Thrombosis (DVT) or Pulmonary Embolism (PE)CRITICAL VALUE CALLED TO MARIA DEL ROSARIO JOHNSON (ER)12/07/24 1442 Michael Cherry.RESULTS READ BACK BY SAME. Performed By: #### L 300.8000 ####[facility] [address] [place], [place], [id number] Emergency Department Summary on 12-07-2024 Emergency Department Summary Normal [facility] Eosinophil percentageOrdered By: Juli German on 12-07-2024 Eosinophils/100 WBC (Bld) 0.6 % 0-5 [facility] Eosinophil percentageOrdered By: Boyd Rock on 12-07-2024 Eosinophils/100 WBC (Bld) 1.3 % 0-5 [facility] Erythrocyte distribution wid th ratioOrdered By: Juli German on 12-07-2024 Erythrocyte distribution width (RBC) [Ratio] 13.4 % 11.6-14.6 [facility] Erythrocyte distribution wid th ratioOrdered By: Boyd Rock on 12-07-2024 Erythrocyte distribution width (RBC) [Ratio] 13.6 % 11.6-14.6 [facility] Erythrocyte distribution wid th standard deviationOrdered By: Juli German on 12-07-2024 Erythrocyte distribution width (RBC) [Ratio] 41.4 fl 35.1-43.9 [facility] Erythrocyte distribution wid th standard deviationOrdered By: Boyd Rock on 12-07-2024 Erythrocyte distribution width (RBC) [Ratio] 43.8 fl 35.1-43.9 [facility] Glomerular filtration rate ( GFR) estimation/1.73 sq m using serum, plasma, or whole bOrdered By: Juli German on 12-07-2024 GFR/1.73 sq M.predicted among non-blacks MDRD (S/P/Bld) [Vol rate/Area] 23 mL/min/{1.73_m2} Low >60 [facility] Glomerular filtration rate ( GFR) estimation/1.73 sq m using serum, plasma, or whole bOrdered By: Boyd Rock on 12-07-2024 GFR/1.73 sq M.predicted among non-blacks MDRD (S/P/Bld) [Vol rate/Area] 25 mL/min/{1.73_m2} Low >60 [facility] H AND P Exam - [facility] 12-07-2024 H&P Exam - Hospitalist Normal [facility] Hematocrit Auto (Bld) [Volum e fraction]Ordered By: Juli German on 12-07-2024 Hematocrit (Bld) [Volume fraction] 39.1 % Low 40-54 [facility] Hematocrit Auto (Bld) [Volum e fraction]Ordered By: Boyd Rock on 12-07-2024 Hematocrit (Bld) [Volume fraction] 37.8 % Low 40-54 [facility] Hemoglobin measurementOrdere d By: Juli German on 12-07-2024 Hemoglobin (Bld) [Mass/Vol] 13.3 g/dL 13.0-16.5 [facility] Hemoglobin measurementOrdere d By: Boyd Rock on 12-07-2024 Hemoglobin (Bld) [Mass/Vol] 12.4 g/dL Low 13.0-16.5 [facility] Immature granulocytes/100 WB C Auto (Bld)Ordered By: Juli German on 12-07-2024 Immature granulocytes/100 WBC (Bld) 0.700 % 0.0-0.9 [facility] Immature granulocytes/100 WB C Auto (Bld)Ordered By: Boyd Rock on 12-07-2024 Immature granulocytes/100 WBC (Bld) 0.600 % 0.0-0.9 [facility] L501.4021on 12-07-2024 Trop T High Sen 7122 ng/L Invalid Interpretation Code <=22 [facility] Comment on above: Result Comment: Crit ical Result(s) Called at 1153: by:?? MONICA RODRIGUEZ. Results read back by same. Performed By: #### L 501.4021, L100.0100, L500.2500 ####[facility] [address] [place], [address] LDL calc ser/plasOrdered By: Boyd Rock on 12-07-2024 Cholesterol in LDL [Mass/Vol] 65 mg/dL [facility] Lung Scan Vent/Perfon 2024 Lung Scan Vent/Perf Normal [facility] MCV (mean corpuscular volume ) determinationOrdered By: Juli German on 12-07-2024 MCV (RBC) [Entitic vol] 86.1 fL 80-94 [facility] MCV (mean corpuscular volume ) determinationOrdered By: Boyd Rock on 12-07-2024 MCV (RBC) [Entitic vol] 87.9 fL 80-94 [facility] Magnesiumon 12-07-2024 Magnesium [Mass/Vol] 2.4 mg/dL High 1.5-2.2 [facility] Comment on above: Performed By: #### L 501.5200 ####[facility] [address] [place], [address] Magnesium measurement (mass/ volume)Ordered By: Juli German on 12-07-2024 Magnesium (Unsp spec) [Mass/Vol] 2.4 mg/dL High 1.5-2.2 [facility] Mean corpuscular hemoglobin (MCH) determinationOrdered By: Juli German on 12-07-2024 MCH (RBC) [Entitic mass] 29.3 pg 27.0-32.0 [facility] Mean corpuscular hemoglobin (MCH) determinationOrdered By: Boyd Rock on 12-07-2024 MCH (RBC) [Entitic mass] 28.8 pg 27.0-32.0 [facility] Monocyte percentageOrdered B y: Juli German on 12-07-2024 Monocytes/100 WBC (Bld) 11.5 % High 0-10 [facility] Monocyte percentageOrdered B y: Boyd Rock on 12-07-2024 Monocytes/100 WBC (Bld) 11.7 % High 0-10 [facility] Natriuretic peptide.B prohor efrem N-Terminal [Mass/volume] in Serum or PlasmaOrdered By: Tor Irizarry on 12-07-2024 Natriuretic peptide.B prohormone N-Terminal [Mass/Vol] 2037 pg/mL High <1800 [facility] Neutrophil percentageOrdered By: Juli German on 12-07-2024 Neutrophils/100 WBC (Bld) 79.0 % High 47-70 [facility] Neutrophil percentageOrdered By: Boyd Rock on 12-07-2024 Neutrophils/100 WBC (Bld) 74.8 % High 47-70 [facility] No Panel InformationOrdered By: Boyd Rock on 12-07-2024 32 U/L <38 [facility] Platelet countOrdered By: Miri German on 12-07-2024 Platelets (Bld) [#/Vol] 190 10*3/uL 150-450 [facility] Platelet countOrdered By: Susanna Rock on 12-07-2024 Platelets (Bld) [#/Vol] 169 10*3/uL 150-450 [facility] Potassium measurement (mass/ volume)Ordered By: Juli German on 12-07-2024 Potassium (Unsp spec) [Mass/Vol] 4.1 mmol/L 3.3-5.1 [facility] Potassium measurement (mass/ volume)Ordered By: Boyd Rock on 12-07-2024 Potassium (Unsp spec) [Mass/Vol] 3.5 mmol/L 3.3-5.1 [facility] Pro- Brain NATRIURETIC PEPTI Sharon 12-07-2024 Natriuretic peptide B (Bld) [Mass/Vol] 2037 pg/mL High <=1800 [facility] Comment on above: Result Comment: Hear t Failure Unlikely: < 300 pg/mLHeart Failure Likely< 50 Years: > 450 pg/mL50-75 Years: > 900 pg/mL>75 Years: > 1800 pg/mL Performed By: #### L 503.7505 ####[facility] [address], [place], [id number] RBC Auto (Bld) [#/Vol]Ordere d By: Juli German on 12-07-2024 RBC (Bld) [#/Vol] 4.54 10*6/uL Low 4.6-6.2 [facility] RBC Auto (Bld) [#/Vol]Ordere d By: Boyd Rock on 12-07-2024 RBC (Bld) [#/Vol] 4.30 10*6/uL Low 4.6-6.2 [facility] Serum creatinine measurement (mass/volume)Ordered By: Juli German on 12-07-2024 Creatinine [Mass/Vol] 2.76 mg/dL High 0.70-1.20 [facility] Serum creatinine measurement (mass/volume)Ordered By: Boyd Rock on 12-07-2024 Creatinine [Mass/Vol] 2.56 mg/dL High 0.70-1.20 [facility] Serum globulin measurementOr dered By: Boyd Rock on 12-07-2024 Globulin (S) [Mass/Vol] 3.5 g/dL 2.2-4.2 [facility] Serum glucose measurement (m ass/volume)Ordered By: Juli German on 12-07-2024 Glucose [Mass/Vol] 209 mg/dL High 70-99 [facility] Serum glucose measurement (m ass/volume)Ordered By: Boyd Rock on 12-07-2024 Glucose [Mass/Vol] 156 mg/dL High 70-99 [facility] Serum or plasma alanine guerrero otransferase (ALT) measurementOrdered By: Boyd Rock on 12-07-2024 ALT [Catalytic activity/Vol] 28 U/L <47 [facility] Serum or plasma albumin francine urement (mass/volume)Ordered By: Boyd Rock on 12-07-2024 Albumin [Mass/Vol] 4.1 g/dL 3.4-4.8 [facility] Serum or plasma albumin/glob ulin mass ratioOrdered By: Boyd Rock on 12-07-2024 Albumin/Globulin [Mass ratio] 1.2 {ratio} 0.9-2.4 [facility] Serum or plasma alkaline bell sphatase measurementOrdered By: Boyd Rock on 12-07-2024 ALP [Catalytic activity/Vol] 122 U/L 40-129 [facility] Serum or plasma calcium francine urement (mass/volume)Ordered By: Juli German on 12-07-2024 Calcium [Mass/Vol] 9.5 mg/dL 7.6-11.0 [facility] Serum or plasma calcium francine urement (mass/volume)Ordered By: Boyd Rock on 12-07-2024 Calcium [Mass/Vol] 9.4 mg/dL 7.6-11.0 [facility] Serum or plasma cholesterol in HDL measurement (mass/volume)Ordered By: Boyd Rock on 12-07-2024 Cholesterol in HDL [Mass/Vol] 36 mg/dL Low >40 [facility] Serum or plasma cholesterol measurement (mass/volume)Ordered By: Boyd Videse on 12-07-2024 Cholesterol [Mass/Vol] 154 mg/dL <201 [facility] Serum or plasma urea nitroge n measurement (mass/volume)Ordered By: Juli German on 12-07-2024 Urea nitrogen [Mass/Vol] 40 mg/dL High 08-19 [facility] Serum or plasma urea nitroge n measurement (mass/volume)Ordered By: Jameybrittni Castañedaliane on 12-07-2024 Urea nitrogen [Mass/Vol] 39 mg/dL High 08-19 [facility] Sodium levelOrdered By: Juli German on 12-07-2024 Sodium [Moles/Vol] 132 mmol/L Low 133-145 [facility] Sodium levelOrdered By: Lupe tesha Garryliane on 12-07-2024 Sodium [Moles/Vol] 135 mmol/L 133-145 [facility] TSH DL <= 0.005 mIU/L QnOrde red By: Boyd Rock on 12-07-2024 TSH Qn 9.200 uIU/mL High 0.300-4.20 0 [facility] Total proteinOrdered By: Anastacio Rock on 12-07-2024 Protein [Mass/Vol] 7.5 g/dL 5.9-8.4 [facility] Troponin T HS 2 HRon 025 Trop T High Sen 6442 ng/L Invalid Interpretation Code <=22 [facility] Comment on above: Result Comment: Crit ical Result(s) Called at 1336: by: MONICA PERALTA.??Results read back by same. Performed By: #### L 499.0042 ####[facility] [address] [place], [place], [id number] Troponin T HS 4 HRon 025 Trop T High Sen 6556 ng/L Invalid Interpretation Code <=22 [facility] Comment on above: Result Comment: Crit ical Result(s) Called at: 1740 by:??MOISE BERNSTEIN BILANCINI Results read back by same. Performed By: #### L 499.0043 ####[facility] [address] [place], [address] Troponin T.cardiac [Mass/vol ume] in Serum or Plasma by High sensitivity methodOrdered By: Juli German on 12-07-2024 Troponin T.cardiac High sensitivity method [Mass/Vol] 6556 ng/L High <22 [facility] Troponin T.cardiac High sensitivity method [Mass/Vol] 6442 ng/L High <22 [facility] Troponin T.cardiac High sensitivity method [Mass/Vol] 7122 ng/L High <22 [facility] White blood cell (WBC) count Ordered By: Juli German on 12-07-2024 WBC (Bld) [#/Vol] 11.9 10*3/uL High 4.4-11.0 [facility] White blood cell (WBC) count Ordered By: Boyd Rock on 12-07-2024 WBC (Bld) [#/Vol] 10.5 10*3/uL 4.4-11.0 [facility] 12 Lead EKGon 12-06-2024 12 Lead EKG Normal [facility] Absolute lymphocyte countOrd ered By: Alex Sanon on 12-06-2024 Lymphocytes Auto (Unsp spec) [#/Vol] 1.09 10*3/uL 0.83-4.51 [facility] Anion gap in Serum or Plasma Ordered By: Marcin Araujo on 12-06-2024 Anion gap [Moles/Vol] 17 mmol/L High 5-15 [facility] Automated lymphocyte count a s percentage of total leukocytesOrdered By: Alex Sanon on 12-06-2024 Lymphocytes/100 WBC Auto (Unsp spec) 11.6 % Low 19-41 [facility] BUN/creatinine ratioOrdered By: Marcin Araujo on 12-06-2024 Urea nitrogen/Creatinine [Mass ratio] 16.1 mg/mg 10- [facility] Basic Metabolic Profile (BMP )on 12-06-2024 BUN/CRE 16.1 RATIO Normal 02-19 [facility] Comment on above: Performed By: #### L 500.2500 ####[facility] [address] [place], [address] Calcium [Mass/Vol] 9.2 mg/dL Normal 7.6-11.0 [facility] Comment on above: Performed By: #### L 500.2500 ####[facility] [address] [place], [address] Chloride [Moles/Vol] 96 mmol/L Low 98-108 [facility] Comment on above: Performed By: #### L 500.2500 ####[facility] [address] [place], [address] CO2 [Moles/Vol] 20.6 mmol/L Low 21.0-32.0 [facility] Comment on above: Performed By: #### L 500.2500 ####[facility] [address] [place], [address] Creatinine [Mass/Vol] 2.46 mg/dL High 0.70-1.20 [facility] Comment on above: Performed By: #### L 500.2500 ####[facility] [address] [place], [address] ECRCL 28.56 ml/min Low 50-250 [facility] Comment on above: Performed By: #### L 500.2500 ####[facility] [address] [place], [address] GAP 17 High 5-15 [facility] Comment on above: Performed By: #### L 500.2500 ####[facility] [address] [place], [address] GFR/1.73 sq M.predicted among non-blacks MDRD (S/P/Bld) [Vol rate/Area] 26 mL/min/{1.73_m2} Low >60 [facility] Comment on above: Result Comment: mL/m in/1.73m2 CKD-EPI Creatinine Equation (2020) Performed By: #### L 500.2500 ####[facility] [address] [place], [address] Glucose [Mass/Vol] 186 mg/dL High 70-99 [facility] Comment on above: Performed By: #### L 500.2500 ####[facility] [address] [place], [address] Potassium [Moles/Vol] 4.1 mmol/L Normal 3.3-5.1 [facility] Comment on above: Performed By: #### L 500.2500 ####[facility] [address] [place], [address] Sodium [Moles/Vol] 133 mmol/L Normal 133-145 [facility] Comment on above: Performed By: #### L 500.2500 ####[facility] [address] [place], [address] Urea nitrogen [Mass/Vol] 40 mg/dL High 4-19 [facility] Comment on above: Performed By: #### L 500.2500 ####[facility] [address] [place], [address] BUN/CRE 17.0 RATIO Normal 10-20 [facility] Comment on above: Performed By: #### L 500.2500, L100.0100, L501.2300, L501.5200 ####[facility] [address] [place], [address] Calcium [Mass/Vol] 9.0 mg/dL Normal 7.6-11.0 [facility] Comment on above: Performed By: #### L 500.2500, L100.0100, L501.2300, L501.5200 ####[facility] [address] [place], [address] Chloride [Moles/Vol] 97 mmol/L Low 98-108 [facility] Comment on above: Performed By: #### L 500.2500, L100.0100, L501.2300, L501.5200 ####[facility] [address] [place], [address] CO2 [Moles/Vol] 21.9 mmol/L Normal 21.0-32.0 [facility] Comment on above: Performed By: #### L 500.2500, L100.0100, L501.2300, L501.5200 ####[facility] [address] [place], [address] Creatinine [Mass/Vol] 2.53 mg/dL High 0.70-1.20 [facility] Comment on above: Performed By: #### L 500.2500, L100.0100, L501.2300, L501.5200 ####[facility] [address] [place], [address] ECRCL 1.34 ml/min Invalid Interpretation Code 50-250 [facility] Comment on above: Performed By: #### L 500.2500, L100.0100, L501.2300, L501.5200 ####[facility] [address] [place], [address] GAP 17 High 5-15 [facility] Comment on above: Performed By: #### L 500.2500, L100.0100, L501.2300, L501.5200 ####[facility] [address] [place], [address] GFR/1.73 sq M.predicted among non-blacks MDRD (S/P/Bld) [Vol rate/Area] 25 mL/min/{1.73_m2} Low >60 [facility] Comment on above: Result Comment: mL/m in/1.73m2 CKD-EPI Creatinine Equation (2020) Performed By: #### L 500.2500, L100.0100, L501.2300, L501.5200 ####[facility] [address] [place], [address] Glucose [Mass/Vol] 161 mg/dL High 70-99 [facility] Comment on above: Performed By: #### L 500.2500, L100.0100, L501.2300, L501.5200 ####[facility] [address] [place], [address] Potassium [Moles/Vol] 3.5 mmol/L Normal 3.3-5.1 [facility] Comment on above: Performed By: #### L 500.2500, L100.0100, L501.2300, L501.5200 ####[facility] [address] [place], [address] Sodium [Moles/Vol] 135 mmol/L Normal 133-145 [facility] Comment on above: Performed By: #### L 500.2500, L100.0100, L501.2300, L501.5200 ####[facility] [address] [place], [address] Urea nitrogen [Mass/Vol] 43 mg/dL High 4-19 [facility] Comment on above: Performed By: #### L 500.2500, L100.0100, L501.2300, L501.5200 ####[facility] [address] [place], [address] Basophil percentageOrdered B y: Alex Sanon on 12-06-2024 Basophils/100 WBC (Bld) 0.2 % 0-1 [facility] Bedside Glucoseon 12-06-2024 FINGERSTICK GLU 197 mg/dL High 74-106 [facility] Comment on above: Result Comment: WILDA BARROSO OF PATIENT CARE PER NURSING PROTOCOL Performed By: #### L 501.080 ####[facility] [address] [place], [address] FINGERSTICK GLU 165 mg/dL High 74-106 [facility] Comment on above: Result Comment: WILDA BARROSO OF PATIENT CARE PER NURSING PROTOCOL Performed By: #### L 501.080 ####[facility] [address] [place], [address] CBC W/Diff, Automatedon 08-0 -2024 Absolute Lymph 1.09 X10 3/uL Normal 0.83-4.51 [facility] Comment on above: Performed By: #### L 500.2500, L100.0100, L501.2300, L501.5200 ####[facility] [address] [place], [address] Absolute Neut 6.8 X10 3/uL Normal 2.0-7.7 [facility] Comment on above: Performed By: #### L 500.2500, L100.0100, L501.2300, L501.5200 ####[facility] [address] [place], [address] Basophils/100 WBC (Bld) 0.2 % Normal 0-1 [facility] Comment on above: Performed By: #### L 500.2500, L100.0100, L501.2300, L501.5200 ####[facility] [address] [place], [address] Eosinophils/100 WBC (Bld) 2.0 % Normal 0-5 [facility] Comment on above: Performed By: #### L 500.2500, L100.0100, L501.2300, L501.5200 ####[facility] [address] [place], [address] Erythrocyte distribution width (RBC) [Ratio] 13.6 % Normal 11.6-14.6 [facility] Comment on above: Performed By: #### L 500.2500, L100.0100, L501.2300, L501.5200 ####[facility] [address] [place], [address] Hematocrit (Bld) [Volume fraction] 35.0 % Low 40-54 [facility] Comment on above: Performed By: #### L 500.2500, L100.0100, L501.2300, L501.5200 ####[facility] [address] [place], [address] Hemoglobin (Bld) [Mass/Vol] 11.6 g/dL Low 13.0-16.5 [facility] Comment on above: Performed By: #### L 500.2500, L100.0100, L501.2300, L501.5200 ####[facility] [address] [place], [address] IG% 0.600 Normal 0.0-0.9 [facility] Comment on above: Result Comment: IG% - Immature Granulocytes (promyelocytes, myelocytes andmetamyelocytes) > 1% indicates that a LEFT SHIFT is Present. Performed By: #### L 500.2500, L100.0100, L501.2300, L501.5200 ####[facility] [address] [place], [address] Lymphocytes/100 WBC (Bld) 11.6 % Low 19-41 [facility] Comment on above: Performed By: #### L 500.2500, L100.0100, L501.2300, L501.5200 ####[facility] [address] [place], [address] MCH (RBC) [Entitic mass] 29.1 pg Normal 27.0-32.0 [facility] Comment on above: Performed By: #### L 500.2500, L100.0100, L501.2300, L501.5200 ####[facility] [address] [place], [address] MCHC (RBC) [Mass/Vol] 33.1 g/dL Normal 32-36 [facility] Comment on above: Performed By: #### L 500.2500, L100.0100, L501.2300, L501.5200 ####[facility] [address] [place], [address] MCV (RBC) [Entitic vol] 87.9 fL Normal 80-94 [facility] Comment on above: Performed By: #### L 500.2500, L100.0100, L501.2300, L501.5200 ####[facility] [address] [place], [address] Monocytes/100 WBC (Bld) 12.9 % High 0-10 [facility] Comment on above: Performed By: #### L 500.2500, L100.0100, L501.2300, L501.5200 ####[facility] [address] [place], [address] Neutrophils/100 WBC (Bld) 72.7 % High 47-70 [facility] Comment on above: Performed By: #### L 500.2500, L100.0100, L501.2300, L501.5200 ####[facility] [address] [place], [address] Nucleated RBC (Bld) [#/Vol] 0 10*3/uL Normal 0-5 [facility] Comment on above: Performed By: #### L 500.2500, L100.0100, L501.2300, L501.5200 ####[facility] [address] [place], [address] Platelet mean volume (Bld) [Entitic vol] 12.9 fL High 6.2-12.0 [facility] Comment on above: Performed By: #### L 500.2500, L100.0100, L501.2300, L501.5200 ####[facility] [address] [place], [address] Platelets (Bld) [#/Vol] 140 10*3/uL Low 150-450 [facility] Comment on above: Performed By: #### L 500.2500, L100.0100, L501.2300, L501.5200 ####[facility] [address] [place], [address] RBC (Bld) [#/Vol] 3.98 10*6/uL Low 4.6-6.2 [facility] Comment on above: Performed By: #### L 500.2500, L100.0100, L501.2300, L501.5200 ####[facility] [address] [place], [address] RDW SD 44.0 fl High 35.1-43.9 [facility] Comment on above: Performed By: #### L 500.2500, L100.0100, L501.2300, L501.5200 ####[facility] [address] [place], [address] WBC (Bld) [#/Vol] 9.4 10*3/uL Normal 4.4-11.0 [facility] Comment on above: Performed By: #### L 500.2500, L100.0100, L501.2300, L501.5200 ####[facility] [address] [place], [address] Carbon dioxide, total [Moles /volume] in Central venous bloodOrdered By: Marcin Araujo on 12-06-2024 CO2 [Moles/Vol] 20.6 mmol/L Low 21.0-32.0 [facility] Chloride assayOrdered By: Russell Araujo on 12-06-2024 Chloride [Moles/Vol] 96 mmol/L Low 98-108 [facility] Electrocardiogram reportOrde red By: Marcin Araujo on 12-06-2024 EKG study [facility] Work Phone: [phone] EKG study [facility] Work Phone: [phone] Eosinophil percentageOrdered By: Alex Sanon on 12-06-2024 Eosinophils/100 WBC (Bld) 2.0 % 0-5 [facility] Erythrocyte distribution wid th ratioOrdered By: Alex Sanon on 12-06-2024 Erythrocyte distribution width (RBC) [Ratio] 13.6 % 11.6-14.6 [facility] Erythrocyte distribution wid th standard deviationOrdered By: Alex Sanon on 12-06-2024 Erythrocyte distribution width (RBC) [Ratio] 44.0 fl High 35.1-43.9 [facility] Glomerular filtration rate ( GFR) estimation/1.73 sq m using serum, plasma, or whole bOrdered By: Marcin Araujo on 12-06-2024 GFR/1.73 sq M.predicted among non-blacks MDRD (S/P/Bld) [Vol rate/Area] 26 mL/min/{1.73_m2} Low >60 [facility] [facility] Glucose measurement at [facility] deOrdered By: Alex Sanon on 12-06-2024 Glucose [Mass/Vol] 197 mg/dL High 74-106 [facility] Hematocrit Auto (Bld) [Volum e fraction]Ordered By: Alex Sanon on 12-06-2024 Hematocrit (Bld) [Volume fraction] 35.0 % Low 40-54 [facility] Hemoglobin measurementOrdere d By: Alex Sanon on 12-06-2024 Hemoglobin (Bld) [Mass/Vol] 11.6 g/dL Low 13.0-16.5 [facility] Immature granulocytes/100 WB C Auto (Bld)Ordered By: Alex Sanon on 12-06-2024 Immature granulocytes/100 WBC (Bld) 0.600 % 0.0-0.9 [facility] MCV (mean corpuscular volume ) determinationOrdered By: Alex Sanon on 12-06-2024 MCV (RBC) [Entitic vol] 87.9 fL 80-94 [facility] Magnesiumon 12-06-2024 Magnesium [Mass/Vol] 2.4 mg/dL High 1.5-2.2 [facility] Comment on above: Performed By: #### L 500.2500, L100.0100, L501.2300, L501.5200 ####[facility] [address] [place], [address] Magnesium measurement (mass/ volume)Ordered By: Alex Sanon on 12-06-2024 Magnesium (Unsp spec) [Mass/Vol] 2.4 mg/dL High 1.5-2.2 [facility] Mean corpuscular hemoglobin (MCH) determinationOrdered By: Alex Sanon on 12-06-2024 MCH (RBC) [Entitic mass] 29.1 pg 27.0-32.0 [facility] Monocyte percentageOrdered B y: Alex Sanon on 12-06-2024 Monocytes/100 WBC (Bld) 12.9 % High 0-10 [facility] Neutrophil percentageOrdered By: Alex Sanon on 12-06-2024 Neutrophils/100 WBC (Bld) 72.7 % High 47-70 [facility] Phosphoruson 12-06-2024 Phosphate [Mass/Vol] 2.9 mg/dL Normal 2.7-4.5 [facility] Comment on above: Performed By: #### L 500.2500, L100.0100, L501.2300, L501.5200 ####[facility] [address], [address] Platelet countOrdered By: Danis Sanon on 12-06-2024 Platelets (Bld) [#/Vol] 140 10*3/uL Low 150-450 [facility] Potassium measurement (mass/ volume)Ordered By: Marcin Araujo on 12-06-2024 Potassium (Unsp spec) [Mass/Vol] 4.1 mmol/L 3.3-5.1 [facility] RBC Auto (Bld) [#/Vol]Ordere d By: Alex Sanon on 12-06-2024 RBC (Bld) [#/Vol] 3.98 10*6/uL Low 4.6-6.2 [facility] Serum creatinine measurement (mass/volume)Ordered By: Marcin Araujo on 12-06-2024 Creatinine [Mass/Vol] 2.46 mg/dL High 0.70-1.20 [facility] Serum glucose measurement (m ass/volume)Ordered By: Marcin Araujo on 12-06-2024 Glucose [Mass/Vol] 186 mg/dL High 70-99 [facility] Serum or plasma calcium francine urement (mass/volume)Ordered By: Marcin Araujo on 12-06-2024 Calcium [Mass/Vol] 9.2 mg/dL 7.6-11.0 [facility] Serum or plasma urea nitroge n measurement (mass/volume)Ordered By: Marcin Araujo on 12-06-2024 Urea nitrogen [Mass/Vol] 40 mg/dL High 4-19 [facility] Sodium levelOrdered By: Madeline Araujo on 12-06-2024 Sodium [Moles/Vol] 133 mmol/L 133-145 [facility] White blood cell (WBC) count Ordered By: Alex Sanon on 12-06-2024 WBC (Bld) [#/Vol] 9.4 10*3/uL 4.4-11.0 [facility] Anion gap in Serum or Plasma Ordered By: Abraham Ridley on 12-05-2024 Anion gap [Moles/Vol] 19 mmol/L High 5-15 [facility] BUN/creatinine ratioOrdered By: Abraham Ridley on 12-05-2024 Urea nitrogen/Creatinine [Mass ratio] 18.2 mg/mg 10-20 [facility] Basic Metabolic Profile (BMP )on 12-05-2024 BUN/CRE 18.2 RATIO Normal -20 [facility] Comment on above: Performed By: #### L 500.2500 ####[facility] [address] [place], [address] Calcium [Mass/Vol] 9.1 mg/dL Normal 7.6-11.0 [facility] Comment on above: Performed By: #### L 500.2500 ####[facility] [address] [place], [address] Chloride [Moles/Vol] 96 mmol/L Low 98-108 [facility] Comment on above: Performed By: #### L 500.2500 ####[facility] [address] [place], [address] CO2 [Moles/Vol] 22.4 mmol/L Normal 21.0-32.0 [facility] Comment on above: Performed By: #### L 500.2500 ####[facility] [address] [place], [address] Creatinine [Mass/Vol] 2.57 mg/dL High 0.70-1.20 [facility] Comment on above: Performed By: #### L 500.2500 ####[facility] [address] [place], [address] ECRCL 27.41 ml/min Low 50-250 [facility] Comment on above: Performed By: #### L 500.2500 ####[facility] [address] [place], [address] GAP 19 High 5-15 [facility] Comment on above: Performed By: #### L 500.2500 ####[facility] [address] [place], [address] GFR/1.73 sq M.predicted among non-blacks MDRD (S/P/Bld) [Vol rate/Area] 25 mL/min/{1.73_m2} Low >60 [facility] Comment on above: Result Comment: mL/m in/1.73m2 CKD-EPI Creatinine Equation (2020) Performed By: #### L 500.2500 ####[facility] [address] [place], [address] Glucose [Mass/Vol] 155 mg/dL High 70-99 [facility] Comment on above: Performed By: #### L 500.2500 ####[facility] [address] [place], [address] Potassium [Moles/Vol] 3.2 mmol/L Low 3.3-5.1 [facility] Comment on above: Performed By: #### L 500.2500 ####[facility] [address] [place], [address] Sodium [Moles/Vol] 137 mmol/L Normal 133-145 [facility] Comment on above: Performed By: #### L 500.2500 ####[facility] [address] [place], [address] Urea nitrogen [Mass/Vol] 47 mg/dL High 4-19 [facility] Comment on above: Performed By: #### L 500.2500 ####[facility] [address] [place], [address] Bedside Glucoseon 12-05-2024 FINGERSTICK GLU 196 mg/dL High 74-106 [facility] Comment on above: Result Comment: WILDA GEMENT OF PATIENT CARE PER NURSING PROTOCOL Performed By: #### L 501.080 ####[facility] [address] [place], [address] FINGERSTICK GLU 183 mg/dL High 74-106 [facility] Comment on above: Result Comment: WILDA GEMENT OF PATIENT CARE PER NURSING PROTOCOL Performed By: #### L 501.080 ####[facility] [address] [place], [address] FINGERSTICK GLU 194 mg/dL High 74-106 [facility] Comment on above: Result Comment: WILDA GEMENT OF PATIENT CARE PER NURSING PROTOCOL Performed By: #### L 501.080 ####[facility] [address] [place], [address] FINGERSTICK GLU 190 mg/dL High 74-106 [facility] Comment on above: Result Comment: WILDA GEMENT OF PATIENT CARE PER NURSING PROTOCOL Performed By: #### L 501.080 ####[facility] [address] [place], [address] Carbon dioxide, total [Moles /volume] in Central venous bloodOrdered By: Abraham Ridley on 12-05-2024 CO2 [Moles/Vol] 22.4 mmol/L 21.0-32.0 [facility] Chloride assayOrdered By: Jaylen Ridley on 12-05-2024 Chloride [Moles/Vol] 96 mmol/L Low 98-108 [facility] Glomerular filtration rate ( GFR) estimation/1.73 sq m using serum, plasma, or whole bOrdered By: Abraham Ridley on 12-05-2024 GFR/1.73 sq M.predicted among non-blacks MDRD (S/P/Bld) [Vol rate/Area] 25 mL/min/{1.73_m2} Low >60 [facility] Glucose measurement at [facility] deOrdered By: Abraham Ridley on 12-05-2024 Glucose [Mass/Vol] 190 mg/dL High 74-106 [facility] Potassium measurement (mass/ volume)Ordered By: Abraham Ridley on 12-05-2024 Potassium (Unsp spec) [Mass/Vol] 3.2 mmol/L Low 3.3-5.1 [facility] Serum creatinine measurement (mass/volume)Ordered By: Abraham Ridley on 12-05-2024 Creatinine [Mass/Vol] 2.57 mg/dL High 0.70-1.20 [facility] Serum glucose measurement (m ass/volume)Ordered By: Abraham Ridley on 12-05-2024 Glucose [Mass/Vol] 155 mg/dL High 70-99 [facility] Serum or plasma calcium francine urement (mass/volume)Ordered By: Abraham Ridley on 12-05-2024 Calcium [Mass/Vol] 9.1 mg/dL 7.6-11.0 [facility] Serum or plasma urea nitroge n measurement (mass/volume)Ordered By: Abraham Ridley on 12-05-2024 Urea nitrogen [Mass/Vol] 47 mg/dL High 4-19 [facility] Sodium levelOrdered By: Isael Ridley on 12-05-2024 Sodium [Moles/Vol] 137 mmol/L 133-145 [facility] 12 Lead EKGon 12-04-2024 12 Lead EKG Normal [facility] Absolute lymphocyte countOrd ered By: Ramonita Herron on 12-04-2024 Lymphocytes Auto (Unsp spec) [#/Vol] 1.07 10*3/uL 0.83-4.51 [facility] Automated lymphocyte count a s percentage of total leukocytesOrdered By: Ramonita Herron on 12-04-2024 Lymphocytes/100 WBC Auto (Unsp spec) 11.1 % Low 19-41 [facility] Basic Metabolic Profile (BMP )on 12-04-2024 BUN/CRE 19.4 RATIO Normal 10-20 [facility] Comment on above: Performed By: #### L 500.2500, L100.0100 ####[facility] [address] [place], [address] Calcium [Mass/Vol] 9.2 mg/dL Normal 7.6-11.0 [facility] Comment on above: Performed By: #### L 500.2500, L100.0100 ####[facility] [address] [place], [address] Chloride [Moles/Vol] 96 mmol/L Low 98-108 [facility] Comment on above: Performed By: #### L 500.2500, L100.0100 ####[facility] [address] [place], [address] CO2 [Moles/Vol] 21.4 mmol/L Normal 21.0-32.0 [facility] Comment on above: Performed By: #### L 500.2500, L100.0100 ####[facility] [address] [place], [address] Creatinine [Mass/Vol] 2.53 mg/dL High 0.70-1.20 [facility] Comment on above: Performed By: #### L 500.2500, L100.0100 ####[facility] [address] [place], [address] ECRCL 28.47 ml/min Low 50-250 [facility] Comment on above: Performed By: #### L 500.2500, L100.0100 ####[facility] [address] [place], [address] GAP 19 High 5-15 [facility] Comment on above: Performed By: #### L 500.2500, L100.0100 ####[facility] [address] [place], [address] GFR/1.73 sq M.predicted among non-blacks MDRD (S/P/Bld) [Vol rate/Area] 25 mL/min/{1.73_m2} Low >60 [facility] Comment on above: Result Comment: mL/m in/1.73m2 CKD-EPI Creatinine Equation (2020) Performed By: #### L 500.2500, L100.0100 ####[facility] [address] [place], [address] Glucose [Mass/Vol] 140 mg/dL High 70-99 [facility] Comment on above: Performed By: #### L 500.2500, L100.0100 ####[facility] [address] [place], [address] Potassium [Moles/Vol] 3.1 mmol/L Low 3.3-5.1 [facility] Comment on above: Performed By: #### L 500.2500, L100.0100 ####[facility] [address] [place], [address] Sodium [Moles/Vol] 137 mmol/L Normal 133-145 [facility] Comment on above: Performed By: #### L 500.2500, L100.0100 ####[facility] [address] [place], [address] Urea nitrogen [Mass/Vol] 49 mg/dL High 4-19 [facility] Comment on above: Performed By: #### L 500.2500, L100.0100 ####[facility] [address] [place], [address] Basophil percentageOrdered B y: Ramonita Herron on 12-04-2024 Basophils/100 WBC (Bld) 0.3 % 0-1 [facility] Bedside Glucoseon 12-04-2024 FINGERSTICK GLU 151 mg/dL High 74-106 [facility] Comment on above: Result Comment: WILDA GEMENT OF PATIENT CARE PER NURSING PROTOCOL Performed By: #### L 501.080 ####[facility] [address] [place], [address] FINGERSTICK GLU 147 mg/dL High 74-106 [facility] Comment on above: Result Comment: WILDA GEMENT OF PATIENT CARE PER NURSING PROTOCOL Performed By: #### L 501.080 ####[facility] [address] [facility] [address] FINGERSTICK GLU 207 mg/dL High [facility]106 [facility] Comment on above: Result Comment: WILDA GEMENT OF PATIENT CARE PER NURSING PROTOCOL Performed By: #### L 501.080 ####[facility] [address] [facility] [address] FINGERSTICK GLU 147 mg/dL High [facility]106 [facility] Comment on above: Result Comment: WILDA GEMENT OF PATIENT CARE PER NURSING PROTOCOL Performed By: #### L 501.080 ####[facility] [address] [place], [address] CBC W/Diff, Automatedon 08 Absolute Lymph 1.07 X10 3/uL Normal 0.83-4.51 [facility] Comment on above: Performed By: #### L 500.2500, L100.0100 ####[facility] [address] [place], [address] Absolute Neut 7.1 X10 3/uL Normal 2.0-7.7 [facility] Comment on above: Performed By: #### L 500.2500, L100.0100 ####[facility] [address] [facility] [address] Basophils/100 WBC (Bld) 0.3 % Normal 0-1 [facility] Comment on above: Performed By: #### L 500.2500, L100.0100 ####[facility] [address] [place], [address] Eosinophils/100 WBC (Bld) 2.2 % Normal 0-5 [facility] Comment on above: Performed By: #### L 500.2500, L100.0100 ####[facility] [address] [place], [address] Erythrocyte distribution width (RBC) [Ratio] 13.7 % Normal 11.6-14.6 [facility] Comment on above: Performed By: #### L 500.2500, L100.0100 ####[facility] [address] [place], [address] Hematocrit (Bld) [Volume fraction] 31.5 % Low 40-54 [facility] Comment on above: Performed By: #### L 500.2500, L100.0100 ####[facility] [address] [place], [address] Hemoglobin (Bld) [Mass/Vol] 10.5 g/dL Low 13.0-16.5 [facility] Comment on above: Performed By: #### L 500.2500, L100.0100 ####[facility] [address] [place], [address] IG% 0.600 Normal 0.0-0.9 [facility] Comment on above: Result Comment: IG% - Immature Granulocytes (promyelocytes, myelocytes andmetamyelocytes) > 1% indicates that a LEFT SHIFT is Present. Performed By: #### L 500.2500, L100.0100 ####[facility] [address] [place], [address] Lymphocytes/100 WBC (Bld) 11.1 % Low 19-41 [facility] Comment on above: Performed By: #### L 500.2500, L100.0100 ####[facility] [address] [place], [address] MCH (RBC) [Entitic mass] 29.2 pg Normal 27.0-32.0 [facility] Comment on above: Performed By: #### L 500.2500, L100.0100 ####[facility] [address] [place], [address] MCHC (RBC) [Mass/Vol] 33.3 g/dL Normal 32-36 [facility] Comment on above: Performed By: #### L 500.2500, L100.0100 ####[facility] [address] [place], [address] MCV (RBC) [Entitic vol] 87.7 fL Normal 80-94 [facility] Comment on above: Performed By: #### L 500.2500, L100.0100 ####[facility] [address] [place], [address] Monocytes/100 WBC (Bld) 11.9 % High 0-10 [facility] Comment on above: Performed By: #### L 500.2500, L100.0100 ####[facility] [address] [place], [address] Neutrophils/100 WBC (Bld) 73.9 % High 47-70 [facility] Comment on above: Performed By: #### L 500.2500, L100.0100 ####[facility] [address] [place], [address] Nucleated RBC (Bld) [#/Vol] 0 10*3/uL Normal 0-5 [facility] Comment on above: Performed By: #### L 500.2500, L100.0100 ####[facility] [address] [place], [address] Platelet mean volume (Bld) [Entitic vol] 13.7 fL High 6.2-12.0 [facility] Comment on above: Performed By: #### L 500.2500, L100.0100 ####[facility] [address] [place], [address] Platelets (Bld) [#/Vol] 126 10*3/uL Low 150-450 [facility] Comment on above: Performed By: #### L 500.2500, L100.0100 ####[facility] [address] [place], [address] RBC (Bld) [#/Vol] 3.59 10*6/uL Low 4.6-6.2 [facility] Comment on above: Performed By: #### L 500.2500, L100.0100 ####[facility] [address] [place], [address] RDW SD 43.8 fl Normal 35.1-43.9 [facility] Comment on above: Performed By: #### L 500.2500, L100.0100 ####[facility] [address] [place], [address] WBC (Bld) [#/Vol] 9.7 10*3/uL Normal 4.4-11.0 [facility] Comment on above: Performed By: #### L 500.2500, L100.0100 ####[facility] [address] [place], [address] Cardiac catheterization repo rtOrdered By: Marcin Araujo on 12-04-2024 Cardiac catheterization study [facility] Work Phone: [phone] Electrocardiogram reportOrde red By: Marcin Araujo on 12-04-2024 EKG study [facility] Work Phone: [phone] Eosinophil percentageOrdered By: Ramonita Herron on 12-04-2024 Eosinophils/100 WBC (Bld) 2.2 % 0-5 [facility] Erythrocyte distribution wid th ratioOrdered By: Ramonita Herron on 12-04-2024 Erythrocyte distribution width (RBC) [Ratio] 13.7 % 11.6-14.6 [facility] Erythrocyte distribution wid th standard deviationOrdered By: Ramonita Hreron on 12-04-2024 Erythrocyte distribution width (RBC) [Ratio] 43.8 fl 35.1-43.9 [facility] Hematocrit Auto (Bld) [Volum e fraction]Ordered By: Ramonita Herron on 12-04-2024 Hematocrit (Bld) [Volume fraction] 31.5 % Low 40-54 [facility] Hemoglobin measurementOrdere d By: Ramonita Herron on 12-04-2024 Hemoglobin (Bld) [Mass/Vol] 10.5 g/dL Low 13.0-16.5 [facility] Immature granulocytes/100 WB C Auto (Bld)Ordered By: Ramonita Herron on 12-04-2024 Immature granulocytes/100 WBC (Bld) 0.600 % 0.0-0.9 [facility] MCV (mean corpuscular volume ) determinationOrdered By: Ramonita Herron on 12-04-2024 MCV (RBC) [Entitic vol] 87.7 fL 80-94 [facility] Mean corpuscular hemoglobin (MCH) determinationOrdered By: Ramonita Herron on 12-04-2024 MCH (RBC) [Entitic mass] 29.2 pg 27.0-32.0 [facility] Monocyte percentageOrdered B y: Ramonita Herron on 12-04-2024 Monocytes/100 WBC (Bld) 11.9 % High 0-10 [facility] Neutrophil percentageOrdered By: Ramonita Herron on 12-04-2024 Neutrophils/100 WBC (Bld) 73.9 % High 47-70 [facility] Platelet countOrdered By: Parish Herron on 12-04-2024 Platelets (Bld) [#/Vol] 126 10*3/uL Low 150-450 [facility] RBC Auto (Bld) [#/Vol]Ordere d By: Ramonita Herron on 12-04-2024 RBC (Bld) [#/Vol] 3.59 10*6/uL Low 4.6-6.2 [facility] White blood cell (WBC) count Ordered By: Ramonita Herron on 12-04-2024 WBC (Bld) [#/Vol] 9.7 10*3/uL 4.4-11.0 [facility] 12 Lead EKGon 12-03-2024 12 Lead EKG Normal [facility] Bedside Glucoseon 12-03-2024 FINGERSTICK GLU 153 mg/dL High 74-106 [facility] Comment on above: Result Comment: WILDA GEMENT OF PATIENT CARE PER NURSING PROTOCOL Performed By: #### L 501.080 ####[facility] [address] [facility] [address] FINGERSTICK GLU 156 mg/dL High 74-106 [facility] Comment on above: Result Comment: WILDA GEMENT OF PATIENT CARE PER NURSING PROTOCOL Performed By: #### L 501.080 ####[facility] [address] [place], [address] FINGERSTICK GLU 226 mg/dL High [facility]106 [facility] Comment on above: Result Comment: WILDA GEMENT OF PATIENT CARE PER NURSING PROTOCOL Performed By: #### L 501.080 ####[facility] [address] [place], [address] FINGERSTICK GLU 140 mg/dL High -106 [facility] Comment on above: Result Comment: WILDA GEMENT OF PATIENT CARE PER NURSING PROTOCOL Performed By: #### L 501.080 ####[facility] [address] [place], [address] FINGERSTICK GLU 200 mg/dL High [facility]106 [facility] Comment on above: Result Comment: WILDA GEMENT OF PATIENT CARE PER NURSING PROTOCOL Performed By: #### L 501.080 ####[facility] [address] [place], [address] Bilirubin Test strip Ql (U)O rdered By: Alex Resendez on 12-03-2024 Bilirubin Ql (U) Negative Negative [facility] Bilirubin, totalOrdered By: Alex Resendez on 12-03-2024 Bilirubin [Mass/Vol] 1.27 mg/dL 0.00-1.30 [facility] CBC W/Diff, Automatedon 08-0 3-2024 Absolute Lymph 0.95 X10 3/uL Normal 0.83-4.51 [facility] Comment on above: Performed By: #### L 500.4050, L100.0100, L501.2300, L501.5200 ####[facility] [address] [place], [address] Absolute Neut 6.9 X10 3/uL Normal 2.0-7.7 [facility] Comment on above: Performed By: #### L 500.4050, L100.0100, L501.2300, L501.5200 ####[facility] [address] [place], [address] Basophils/100 WBC (Bld) 0.2 % Normal 0-1 [facility] Comment on above: Performed By: #### L 500.4050, L100.0100, L501.2300, L501.5200 ####[facility] [address] [place], [address] Eosinophils/100 WBC (Bld) 1.8 % Normal 0-5 [facility] Comment on above: Performed By: #### L 500.4050, L100.0100, L501.2300, L501.5200 ####[facility] [address] [place], [address] Erythrocyte distribution width (RBC) [Ratio] 14.2 % Normal 11.6-14.6 [facility] Comment on above: Performed By: #### L 500.4050, L100.0100, L501.2300, L501.5200 ####[facility] [address] [place], [address] Hematocrit (Bld) [Volume fraction] 31.8 % Low 40-54 [facility] Comment on above: Performed By: #### L 500.4050, L100.0100, L501.2300, L501.5200 ####[facility] [address] [place], [address] Hemoglobin (Bld) [Mass/Vol] 10.3 g/dL Low 13.0-16.5 [facility] Comment on above: Performed By: #### L 500.4050, L100.0100, L501.2300, L501.5200 ####[facility] [address] [place], [address] IG% 0.600 Normal 0.0-0.9 [facility] Comment on above: Result Comment: IG% - Immature Granulocytes (promyelocytes, myelocytes andmetamyelocytes) > 1% indicates that a LEFT SHIFT is Present. Performed By: #### L 500.4050, L100.0100, L501.2300, L501.5200 ####[facility] [address] [place], [address] Lymphocytes/100 WBC (Bld) 10.5 % Low 19-41 [facility] Comment on above: Performed By: #### L 500.4050, L100.0100, L501.2300, L501.5200 ####[facility] [address] [place], [address] MCH (RBC) [Entitic mass] 29.3 pg Normal 27.0-32.0 [facility] Comment on above: Performed By: #### L 500.4050, L100.0100, L501.2300, L501.5200 ####[facility] [address] [place], [address] MCHC (RBC) [Mass/Vol] 32.4 g/dL Normal 32-36 [facility] Comment on above: Performed By: #### L 500.4050, L100.0100, L501.2300, L501.5200 ####[facility] [address] [place], [address] MCV (RBC) [Entitic vol] 90.3 fL Normal 80-94 [facility] Comment on above: Performed By: #### L 500.4050, L100.0100, L501.2300, L501.5200 ####[facility] [address] [place], [address] Monocytes/100 WBC (Bld) 11.4 % High 0-10 [facility] Comment on above: Performed By: #### L 500.4050, L100.0100, L501.2300, L501.5200 ####[facility] [address] [place], [address] Neutrophils/100 WBC (Bld) 75.5 % High 47-70 [facility] Comment on above: Performed By: #### L 500.4050, L100.0100, L501.2300, L501.5200 ####[facility] [address] [place], [address] Nucleated RBC (Bld) [#/Vol] 0 10*3/uL Normal 0-5 [facility] Comment on above: Performed By: #### L 500.4050, L100.0100, L501.2300, L501.5200 ####[facility] [address] [place], [address] Platelet mean volume (Bld) [Entitic vol] 12.4 fL High 6.2-12.0 [facility] Comment on above: Performed By: #### L 500.4050, L100.0100, L501.2300, L501.5200 ####[facility] [address] [place], [address] Platelets (Bld) [#/Vol] 104 10*3/uL Low 150-450 [facility] Comment on above: Performed By: #### L 500.4050, L100.0100, L501.2300, L501.5200 ####[facility] [address] [place], [address] RBC (Bld) [#/Vol] 3.52 10*6/uL Low 4.6-6.2 [facility] Comment on above: Performed By: #### L 500.4050, L100.0100, L501.2300, L501.5200 ####[facility] [address] [place], [address] RDW SD 46.0 fl High 35.1-43.9 [facility] Comment on above: Performed By: #### L 500.4050, L100.0100, L501.2300, L501.5200 ####[facility] [address] [place], [address] WBC (Bld) [#/Vol] 9.1 10*3/uL Normal 4.4-11.0 [facility] Comment on above: Performed By: #### L 500.4050, L100.0100, L501.2300, L501.5200 ####[facility] [address] [place], [address] Comprehensive Metabolic [facility] 12-03-2024 Albumin [Mass/Vol] 3.4 g/dL Normal 3.4-4.8 [facility] Comment on above: Performed By: #### L 500.4050, L100.0100, L501.2300, L501.5200 ####[facility] [address] [place], [address] Albumin/Globulin [Mass ratio] 1.2 {ratio} Normal 0.9-2.4 [facility] Comment on above: Performed By: #### L 500.4050, L100.0100, L501.2300, L501.5200 ####[facility] [address] [place], [address] ALK PHOS 94 U/L Normal 40-129 [facility] Comment on above: Performed By: #### L 500.4050, L100.0100, L501.2300, L501.5200 ####[facility] [address] [place], [address] ALT [Catalytic activity/Vol] 47 U/L Normal <=46 [facility] Comment on above: Performed By: #### L 500.4050, L100.0100, L501.2300, L501.5200 ####[facility] [address] [place], [address] AST [Catalytic activity/Vol] 134 U/L High <=37 [facility] Comment on above: Performed By: #### L 500.4050, L100.0100, L501.2300, L501.5200 ####[facility] [address] [place], [address] Bilirubin [Mass/Vol] 1.27 mg/dL Normal 0.00-1.30 [facility] Comment on above: Performed By: #### L 500.4050, L100.0100, L501.2300, L501.5200 ####[facility] [address] [place], [address] BUN/CRE 20.6 RATIO High 10-20 [facility] Comment on above: Performed By: #### L 500.4050, L100.0100, L501.2300, L501.5200 ####[facility] [address] [place], [address] Calcium [Mass/Vol] 8.9 mg/dL Normal 7.6-11.0 [facility] Comment on above: Performed By: #### L 500.4050, L100.0100, L501.2300, L501.5200 ####[facility] [address] [place], [address] Chloride [Moles/Vol] 100 mmol/L Normal 98-108 [facility] Comment on above: Performed By: #### L 500.4050, L100.0100, L501.2300, L501.5200 ####[facility] [address] [place], [address] CO2 [Moles/Vol] 18.7 mmol/L Low 21.0-32.0 [facility] Comment on above: Performed By: #### L 500.4050, L100.0100, L501.2300, L501.5200 ####[facility] [address] [place], [address] Creatinine [Mass/Vol] 2.58 mg/dL High 0.70-1.20 [facility] Comment on above: Performed By: #### L 500.4050, L100.0100, L501.2300, L501.5200 ####[facility] [address] [place], [address] ECRCL 28.22 ml/min Low 50-250 [facility] Comment on above: Performed By: #### L 500.4050, L100.0100, L501.2300, L501.5200 ####[facility] [address] [place], [address] GAP 15 Normal 5-15 [facility] Comment on above: Performed By: #### L 500.4050, L100.0100, L501.2300, L501.5200 ####[facility] [address] [place], [address] GFR/1.73 sq M.predicted among non-blacks MDRD (S/P/Bld) [Vol rate/Area] 25 mL/min/{1.73_m2} Low >60 [facility] Comment on above: Result Comment: mL/m in/1.73m2 CKD-EPI Creatinine Equation (2020) Performed By: #### L 500.4050, L100.0100, L501.2300, L501.5200 ####[facility] [address] [place], [address] Globulin (S) [Mass/Vol] 2.8 g/dL Normal 2.2-4.2 [facility] Comment on above: Performed By: #### L 500.4050, L100.0100, L501.2300, L501.5200 ####[facility] [address] [place], [address] Glucose [Mass/Vol] 154 mg/dL High 70-99 [facility] Comment on above: Performed By: #### L 500.4050, L100.0100, L501.2300, L501.5200 ####[facility] [address] [place], [address] Potassium [Moles/Vol] 3.7 mmol/L Normal 3.3-5.1 [facility] Comment on above: Performed By: #### L 500.4050, L100.0100, L501.2300, L501.5200 ####[facility] [address] [place], [address] Sodium [Moles/Vol] 134 mmol/L Normal 133-145 [facility] Comment on above: Performed By: #### L 500.4050, L100.0100, L501.2300, L501.5200 ####[facility] [address] [place], [address] T PROT 6.3 g/dL Normal 5.9-8.4 [facility] Comment on above: Performed By: #### L 500.4050, L100.0100, L501.2300, L501.5200 ####[facility] [address] [place], [address] Urea nitrogen [Mass/Vol] 53 mg/dL High 4-19 [facility] Comment on above: Performed By: #### L 500.4050, L100.0100, L501.2300, L501.5200 ####[facility] [address] [place], [address] Consultation - Cardiologyon 12-03-2024 Consultation - Cardiology Normal [facility] Ketones Test strip Ql (U)Ord ered By: Alex Resendez on 12-03-2024 Ketones Ql (U) Negative Negative [facility] Magnesiumon 12-03-2024 Magnesium [Mass/Vol] 2.5 mg/dL High 1.5-2.2 [facility] Comment on above: Performed By: #### L 500.4050, L100.0100, L501.2300, L501.5200 ####[facility] [address] [place], [address] Magnesium measurement (mass/ volume)Ordered By: Alex Resendez on 12-03-2024 Magnesium (Unsp spec) [Mass/Vol] 2.5 mg/dL High 1.5-2.2 [facility] Mucus LM Ql (Urine sed)Order ed By: Alex Resendez on 12-03-2024 Mucus Ql (Urine sed) 0 SEEN /hpf [facility] Nitrite Test strip Ql (U)Ord ered By: Alex Resendez on 12-03-2024 Nitrite Ql (U) Negative Negative [facility] No Panel InformationOrdered By: Alex Resendez on 12-03-2024 134 U/L High <38 [facility] Phosphoruson 12-03-2024 Phosphate [Mass/Vol] 3.4 mg/dL Normal 2.7-4.5 [facility] Comment on above: Performed By: #### L 500.4050, L100.0100, L501.2300, L501.5200 ####[facility] [address] [place], [address] Protein Test strip Ql (U)Ord ered By: Alex Resendez on 12-03-2024 Protein Ql (U) 15 mg/dl High Negative [facility] Serum globulin measurementOr dered By: Alex Resendez on 12-03-2024 Globulin (S) [Mass/Vol] 2.8 g/dL 2.2-4.2 [facility] Serum or plasma alanine guerrero otransferase (ALT) measurementOrdered By: Alex Resendez on 12-03-2024 ALT [Catalytic activity/Vol] 47 U/L <47 [facility] Serum or plasma albumin francine urement (mass/volume)Ordered By: Alex Resendez on 12-03-2024 Albumin [Mass/Vol] 3.4 g/dL 3.4-4.8 [facility] Serum or plasma albumin/glob ulin mass ratioOrdered By: Alex Resendez on 12-03-2024 Albumin/Globulin [Mass ratio] 1.2 {ratio} 0.9-2.4 [facility] Serum or plasma alkaline bell sphatase measurementOrdered By: Alex Resendez on 12-03-2024 ALP [Catalytic activity/Vol] 94 U/L 40-129 [facility] Squamous epithelial cells de tection in urine sediment by light microscopyOrdered By: Alex Resendez on 12-03-2024 Epithelial cells.squamous LM Ql (Urine sed) 0 SEEN /hpf 0-5 [facility] Total proteinOrdered By: Yoseph Resendez on 12-03-2024 Protein [Mass/Vol] 6.3 g/dL 5.9-8.4 [facility] Troponin T HS 2 HRon 025 Trop T High Sen > 94286 Invalid Interpretation Code <=22 [facility] Comment on above: Result Comment: Crit ical Result(s) Called at:0007 by:??KEIKO HAVEN TO SKINNY Results read back by same. Performed By: #### L 499.0042 ####[facility] [address] [place], [address] Troponin T HS 4 HRon 025 Trop T High Sen > 09441 Invalid Interpretation Code <=22 [facility] Comment on above: Result Comment: Kerri ical Result(s) Called at: 0240 by:??KEIKO HOOPER Results read back by same. Performed By: #### L 499.0043 ####[facility] [address] [place], [address] Troponin T.cardiac [Mass/vol ume] in Serum or Plasma by High sensitivity methodOrdered By: Rasheed Canela on 12-03-2024 Troponin T.cardiac High sensitivity method [Mass/Vol] > 22733 ng/L High <22 [facility] Urinalysis, Completeon 12-03 BACTERIA 0 SEEN Normal None Seen [facility] Comment on above: Order Comment: CLEAN CATCH Performed By: #### L 400.0001 ####[facility] [address] [place], [address] EPI,SQUAMOUS 0 SEEN Normal 0-5 [facility] Comment on above: Order Comment: CLEAN CATCH Performed By: #### L 400.0001 ####[facility] [address] [place], [address] Mucus Ql (Urine sed) 0 SEEN Normal [facility] Comment on above: Order Comment: CLEAN CATCH Performed By: #### L 400.0001 ####[facility] [address] [place], [address] RBC 0 SEEN Normal 0-5 [facility] Comment on above: Order Comment: CLEAN CATCH Performed By: #### L 400.0001 ####[facility] [address] [place], [address] WBC 0 SEEN Normal 0-5 [facility] Comment on above: Order Comment: CLEAN CATCH Performed By: #### L 400.0001 ####[facility] [address] [place], [address] Urine clarityOrdered By: Yoseph Resendez on 12-03-2024 Clarity (U) Clear Clear [facility] Urine color determinationOrd ered By: Alex Resendez on 12-03-2024 Color (U) Yellow Yellow [facility] Urine glucose detectionOrder ed By: Alex Resendez on 12-03-2024 Glucose Ql (U) Normal mg/dl Normal [facility] Urine leukocyte esterase det ection by dipstickOrdered By: Alex Resendez on 12-03-2024 Leukocyte esterase Test strip Ql (U) Negative Negative [facility] Urine pHOrdered By: Alex best on 12-03-2024 pH (U) 6.0 [pH] 5.0 - 8.0 [facility] Urine sediment bacteria coun t by microscopy (number/high power field)Ordered By: Alex Resendez on 12-03-2024 Bacteria LM.HPF (Urine sed) [#/Area] 0 /[HPF] None Seen [facility] Urine specific gravity measu rementOrdered By: Alex Resendez on 12-03-2024 Specific gravity (U) [Rel density] 1.015 1.002-1.03 0 [facility] Urine urobilinogen measureme ntOrdered By: Alex Resendez on 12-03-2024 Urobilinogen Ql (U) Normal mg/dl Normal [facility] White blood cell countOrdere d By: Alex Resendez on 12-03-2024 White blood cell count 0 SEEN /hpf 0-5 [facility] 12 Lead EKGon 12-02-2024 12 Lead EKG Normal [facility] ACT Activated Clotting Timeo n 12-02-2024 ACTk CLOT TIME 245 sec High 74-137 [facility] Comment on above: Performed By: #### L 9100.0100 ####[facility] [address] [place], [address] Absolute lymphocyte countOrd ered By: Rasheed Canela on 12-02-2024 Lymphocytes Auto (Unsp spec) [#/Vol] 1.13 10*3/uL 0.83-4.51 [facility] Absolute lymphocyte countOrd ered By: Nickie Danielson on 12-02-2024 Lymphocytes Auto (Unsp spec) [#/Vol] 0.85 10*3/uL 0.83-4.51 [facility] Activated partial thrombopla stin time (aPTT) in platelet poor plasma by coagulation aOrdered By: Rasheed Canela on 12-02-2024 aPTT Coag (PPP) [Time] 31.6 s 24.1-36.2 [facility] Anion gap in Serum or Plasma Ordered By: Rasheed Canela on 12-02-2024 Anion gap [Moles/Vol] 14 mmol/L 09-14 [facility] Anion gap in Serum or Plasma Ordered By: Nickie Danielson on 12-02-2024 Anion gap [Moles/Vol] 14 mmol/L 09-14 [facility] Automated lymphocyte count a s percentage of total leukocytesOrdered By: Rasheed Canela on 12-02-2024 Lymphocytes/100 WBC Auto (Unsp spec) 8.9 % Low [facility] Automated lymphocyte count a s percentage of total leukocytesOrdered By: Nickie Danielson on 12-02-2024 Lymphocytes/100 WBC Auto (Unsp spec) 7.6 % Low [facility] BUN/creatinine ratioOrdered By: Rasheed Canela on 12-02-2024 Urea nitrogen/Creatinine [Mass ratio] 18.0 mg/mg 02-19 [facility] BUN/creatinine ratioOrdered By: Nickie Danielson on 12-02-2024 Urea nitrogen/Creatinine [Mass ratio] 17.2 mg/mg 02-19 [facility] Basic Metabolic Profile (BMP )on 12-02-2024 BUN/CRE 18.0 RATIO Normal 02-19 [facility] Comment on above: Performed By: #### L 300.4310, L501.4021, L300.3900, L500.2500, L100.0100 ####[facility] [address] [place], [address] Calcium [Mass/Vol] 9.1 mg/dL Normal 7.6-11.0 [facility] Comment on above: Performed By: #### L 300.4310, L501.4021, L300.3900, L500.2500, L100.0100 ####[facility] [address] [place], [address] Chloride [Moles/Vol] 96 mmol/L Low 98-108 [facility] Comment on above: Performed By: #### L 300.4310, L501.4021, L300.3900, L500.2500, L100.0100 ####[facility] [address] [place], [address] CO2 [Moles/Vol] 20.5 mmol/L Low 21.0-32.0 [facility] Comment on above: Performed By: #### L 300.4310, L501.4021, L300.3900, L500.2500, L100.0100 ####[facility] [address] [place], [address] Creatinine [Mass/Vol] 2.90 mg/dL High 0.70-1.20 [facility] Comment on above: Performed By: #### L 300.4310, L501.4021, L300.3900, L500.2500, L100.0100 ####[facility] [address] [place], [address] ECRCL 25.31 ml/min Low 50-250 [facility] Comment on above: Performed By: #### L 300.4310, L501.4021, L300.3900, L500.2500, L100.0100 ####[facility] [address] [place], [address] GAP 14 Normal 5-15 [facility] Comment on above: Performed By: #### L 300.4310, L501.4021, L300.3900, L500.2500, L100.0100 ####[facility] [address] [place], [address] GFR/1.73 sq M.predicted among non-blacks MDRD (S/P/Bld) [Vol rate/Area] 21 mL/min/{1.73_m2} Low >60 [facility] Comment on above: Result Comment: mL/m in/1.73m2 CKD-EPI Creatinine Equation (2020) Performed By: #### L 300.4310, L501.4021, L300.3900, L500.2500, L100.0100 ####[facility] [address] [place], [address] Glucose [Mass/Vol] 175 mg/dL High 70-99 [facility] Comment on above: Performed By: #### L 300.4310, L501.4021, L300.3900, L500.2500, L100.0100 ####[facility] [address] [place], [address] Potassium [Moles/Vol] 4.6 mmol/L Normal 3.3-5.1 [facility] Comment on above: Performed By: #### L 300.4310, L501.4021, L300.3900, L500.2500, L100.0100 ####[facility] [address] [place], [address] Sodium [Moles/Vol] 131 mmol/L Low 133-145 [facility] Comment on above: Performed By: #### L 300.4310, L501.4021, L300.3900, L500.2500, L100.0100 ####[facility] [address] [place], [address] Urea nitrogen [Mass/Vol] 52 mg/dL High 4-19 [facility] Comment on above: Performed By: #### L 300.4310, L501.4021, L300.3900, L500.2500, L100.0100 ####[facility] [address] [place], [address] BUN/CRE 17.2 RATIO Normal 10-20 [facility] Comment on above: Performed By: #### L 500.2500, L100.0100 ####[facility] [address] [place], [address] Calcium [Mass/Vol] 9.3 mg/dL Normal 7.6-11.0 [facility] Comment on above: Performed By: #### L 500.2500, L100.0100 ####[facility] [address] [place], [address] Chloride [Moles/Vol] 99 mmol/L Normal 98-108 [facility] Comment on above: Performed By: #### L 500.2500, L100.0100 ####[facility] [address] [place], [address] CO2 [Moles/Vol] 20.6 mmol/L Low 21.0-32.0 [facility] Comment on above: Performed By: #### L 500.2500, L100.0100 ####[facility] [address] [place], [address] Creatinine [Mass/Vol] 2.93 mg/dL High 0.70-1.20 [facility] Comment on above: Performed By: #### L 500.2500, L100.0100 ####[facility] [address] [place], [address] ECRCL 24.95 ml/min Low 50-250 [facility] Comment on above: Performed By: #### L 500.2500, L100.0100 ####[facility] [address] [place], [address] GAP 14 Normal 5-15 [facility] Comment on above: Performed By: #### L 500.2500, L100.0100 ####[facility] [address] [place], [address] GFR/1.73 sq M.predicted among non-blacks MDRD (S/P/Bld) [Vol rate/Area] 21 mL/min/{1.73_m2} Low >60 [facility] Comment on above: Result Comment: mL/m in/1.73m2 CKD-EPI Creatinine Equation (2020) Performed By: #### L 500.2500, L100.0100 ####[facility] [address] [place], [address] Glucose [Mass/Vol] 138 mg/dL High 70-99 [facility] Comment on above: Performed By: #### L 500.2500, L100.0100 ####[facility] [address] [place], [address] Potassium [Moles/Vol] 4.8 mmol/L Normal 3.3-5.1 [facility] Comment on above: Performed By: #### L 500.2500, L100.0100 ####[facility] [address] [place], [address] Sodium [Moles/Vol] 133 mmol/L Normal 133-145 [facility] Comment on above: Performed By: #### L 500.2500, L100.0100 ####[facility] [address] [place], [address] Urea nitrogen [Mass/Vol] 50 mg/dL High 4-19 [facility] Comment on above: Performed By: #### L 500.2500, L100.0100 ####[facility] [address] [place], [address] Basophil percentageOrdered B y: Rasheed Canela on 12-02-2024 Basophils/100 WBC (Bld) 0.3 % 0-1 [facility] Basophil percentageOrdered B y: Nickie Danielson on 12-02-2024 Basophils/100 WBC (Bld) 0.1 % 0-1 [facility] Bedside Glucoseon 12-02-2024 FINGERSTICK GLU 129 mg/dL High 74-106 [facility] Comment on above: Result Comment: WILDA BARROSO OF PATIENT CARE PER NURSING PROTOCOL Performed By: #### L 501.080 ####[facility] [address] [place], [address] Blood manual differential co mment interpretation (narrative result)Ordered By: Rasheed Canela on 12-02-2024 Manual differential comment Luis Manuel (Bld) [Interp] SCANNED [facility] Brain without Contraston Brain without Contrast Normal [facility] CBC W/Diff, Automatedon PLT EST SLT DEC Normal ADEQ [facility] Comment on above: Performed By: #### L 300.4310, L501.4021, L300.3900, L500.2500, L100.0100 ####[facility] [address] [place], [address] SMEAR COMMENT SCANNED Normal [facility] Comment on above: Performed By: #### L 300.4310, L501.4021, L300.3900, L500.2500, L100.0100 ####[facility] [address] [place], [address] Absolute Lymph 0.85 X10 3/uL Normal 0.83-4.51 [facility] Comment on above: Performed By: #### L 500.2500, L100.0100 ####[facility] [address] [place], [address] Absolute Neut 8.8 X10 3/uL High 2.0-7.7 [facility] Comment on above: Performed By: #### L 500.2500, L100.0100 ####[facility] [address] [place], [address] Basophils/100 WBC (Bld) 0.1 % Normal 0-1 [facility] Comment on above: Performed By: #### L 500.2500, L100.0100 ####[facility] [address] [place], [address] Eosinophils/100 WBC (Bld) 0.7 % Normal 0-5 [facility] Comment on above: Performed By: #### L 500.2500, L100.0100 ####[facility] [address] [place], [address] Erythrocyte distribution width (RBC) [Ratio] 14.4 % Normal 11.6-14.6 [facility] Comment on above: Performed By: #### L 500.2500, L100.0100 ####[facility] [address] [place], [address] Hematocrit (Bld) [Volume fraction] 32.1 % Low 40-54 [facility] Comment on above: Performed By: #### L 500.2500, L100.0100 ####[facility] [address] [place], [address] Hemoglobin (Bld) [Mass/Vol] 10.4 g/dL Low 13.0-16.5 [facility] Comment on above: Performed By: #### L 500.2500, L100.0100 ####[facility] [address] [place], [address] IG% 0.700 Normal 0.0-0.9 [facility] Comment on above: Result Comment: IG% - Immature Granulocytes (promyelocytes, myelocytes andmetamyelocytes) > 1% indicates that a LEFT SHIFT is Present. Performed By: #### L 500.2500, L100.0100 ####[facility] [address] [place], [address] Lymphocytes/100 WBC (Bld) 7.6 % Low 19-41 [facility] Comment on above: Performed By: #### L 500.2500, L100.0100 ####[facility] [address] [place], [address] MCH (RBC) [Entitic mass] 29.5 pg Normal 27.0-32.0 [facility] Comment on above: Performed By: #### L 500.2500, L100.0100 ####[facility] [address] [place], [address] MCHC (RBC) [Mass/Vol] 32.4 g/dL Normal 32-36 [facility] Comment on above: Performed By: #### L 500.2500, L100.0100 ####[facility] [address] [place], [address] MCV (RBC) [Entitic vol] 91.2 fL Normal 80-94 [facility] Comment on above: Performed By: #### L 500.2500, L100.0100 ####[facility] [address] [place], [address] Monocytes/100 WBC (Bld) 12.0 % High 0-10 [facility] Comment on above: Performed By: #### L 500.2500, L100.0100 ####[facility] [address] [place], [address] Neutrophils/100 WBC (Bld) 78.9 % High 47-70 [facility] Comment on above: Performed By: #### L 500.2500, L100.0100 ####[facility] [address] [place], [address] Nucleated RBC (Bld) [#/Vol] 0 10*3/uL Normal 0-5 [facility] Comment on above: Performed By: #### L 500.2500, L100.0100 ####[facility] [address] [place], [address] Platelet mean volume (Bld) [Entitic vol] 13.1 fL High 6.2-12.0 [facility] Comment on above: Performed By: #### L 500.2500, L100.0100 ####[facility] [address] [place], [address] Platelets (Bld) [#/Vol] 113 10*3/uL Low 150-450 [facility] Comment on above: Performed By: #### L 500.2500, L100.0100 ####[facility] [address] [place], [address] RBC (Bld) [#/Vol] 3.52 10*6/uL Low 4.6-6.2 [facility] Comment on above: Performed By: #### L 500.2500, L100.0100 ####[facility] [address] [place], [address] RDW SD 47.4 fl High 35.1-43.9 [facility] Comment on above: Performed By: #### L 500.2500, L100.0100 ####[facility] [address] [place], [address] WBC (Bld) [#/Vol] 11.2 10*3/uL High 4.4-11.0 [facility] Comment on above: Performed By: #### L 500.2500, L100.0100 ####[facility] [address] [place], [address] CVS/PCIREPORTon 12-02-2024 CVS/PCIREPORT Normal [facility] Carbon dioxide, total [Moles /volume] in Central venous bloodOrdered By: Rasheed Canela on 12-02-2024 CO2 [Moles/Vol] 20.5 mmol/L Low 21.0-32.0 [facility] Carbon dioxide, total [Moles /volume] in Central venous bloodOrdered By: Nickie Danielson on 12-02-2024 CO2 [Moles/Vol] 20.6 mmol/L Low 21.0-32.0 [facility] Chloride assayOrdered By: Afshin Canela on 12-02-2024 Chloride [Moles/Vol] 96 mmol/L Low 98-108 [facility] Chloride assayOrdered By: Korina Danielson on 12-02-2024 Chloride [Moles/Vol] 99 mmol/L 98-108 [facility] Emergency Department Summary on 12-02-2024 Emergency Department Summary Normal [facility] Eosinophil percentageOrdered By: Rasheed Canela on 12-02-2024 Eosinophils/100 WBC (Bld) 0.8 % 0-5 [facility] Eosinophil percentageOrdered By: Nikcie Danielson on 12-02-2024 Eosinophils/100 WBC (Bld) 0.7 % 0-5 [facility] Erythrocyte distribution wid th ratioOrdered By: Rasheed Canela on 12-02-2024 Erythrocyte distribution width (RBC) [Ratio] 14.1 % 11.6-14.6 [facility] Erythrocyte distribution wid th ratioOrdered By: Nickie Danielson on 12-02-2024 Erythrocyte distribution width (RBC) [Ratio] 14.4 % 11.6-14.6 [facility] Erythrocyte distribution wid th standard deviationOrdered By: Rasheed Canela on 12-02-2024 Erythrocyte distribution width (RBC) [Ratio] 45.8 fl High 35.1-43.9 [facility] Erythrocyte distribution wid th standard deviationOrdered By: Nickie Danielson on 12-02-2024 Erythrocyte distribution width (RBC) [Ratio] 47.4 fl High 35.1-43.9 [facility] Glomerular filtration rate ( GFR) estimation/1.73 sq m using serum, plasma, or whole bOrdered By: Rasheed Canela on 12-02-2024 GFR/1.73 sq M.predicted among non-blacks MDRD (S/P/Bld) [Vol rate/Area] 21 mL/min/{1.73_m2} Low >60 [facility] Glomerular filtration rate ( GFR) estimation/1.73 sq m using serum, plasma, or whole bOrdered By: Nickie Danielson on 12-02-2024 GFR/1.73 sq M.predicted among non-blacks MDRD (S/P/Bld) [Vol rate/Area] 21 mL/min/{1.73_m2} Low >60 [facility] Glucose measurement at bedsi deOrdered By: Nickie Danielson on 12-02-2024 Glucose [Mass/Vol] 200 mg/dL High 74-106 [facility] Glucose [Mass/Vol] 129 mg/dL High 74-106 [facility] H AND P Exam - Hospitaliston 12-02-2024 H&P Exam - Hospitalist Normal [facility] Hematocrit Auto (Bld) [Volum e fraction]Ordered By: Rasheed Canela on 12-02-2024 Hematocrit (Bld) [Volume fraction] 34.1 % Low 40-54 [facility] Hematocrit Auto (Bld) [Volum e fraction]Ordered By: Nicike Danielson on 12-02-2024 Hematocrit (Bld) [Volume fraction] 32.1 % Low 40-54 [facility] Hemoglobin measurementOrdere d By: Rasheed Canela on 12-02-2024 Hemoglobin (Bld) [Mass/Vol] 11.1 g/dL Low 13.0-16.5 [facility] Hemoglobin measurementOrdere d By: Nickie Danielson on 12-02-2024 Hemoglobin (Bld) [Mass/Vol] 10.4 g/dL Low 13.0-16.5 [facility] Immature granulocytes/100 WB C Auto (Bld)Ordered By: Rasheed Canela on 12-02-2024 Immature granulocytes/100 WBC (Bld) 0.600 % 0.0-0.9 [facility] Immature granulocytes/100 WB C Auto (Bld)Ordered By: Nickie Danielson on 12-02-2024 Immature granulocytes/100 WBC (Bld) 0.700 % 0.0-0.9 [facility] L501.4021on 12-02-2024 Trop T High Sen > 15530 Invalid Interpretation Code <=22 [facility] Comment on above: Result Comment: Crit ical Result(s) Called at: 2120 by: MOISE MENDIOLA??Results read back by same. Performed By: #### L 300.4310, L501.4021, L300.3900, L500.2500, L100.0100 ####[facility] [address] [place], [place], [id number] MCV (mean corpuscular volume ) determinationOrdered By: Rasheed Canela on 12-02-2024 MCV (RBC) [Entitic vol] 89.5 fL 80-94 [facility] MCV (mean corpuscular volume ) determinationOrdered By: Nickie Danielson on 12-02-2024 MCV (RBC) [Entitic vol] 91.2 fL 80-94 [facility] MR/CON.PCM.NEon 12-02-2024 MR/CON.PCM.NE Normal [facility] MRA Head ONLY without Contra ston 12-02-2024 MRA Head ONLY without Contrast Normal [facility] MRA Neck without Contraston 12-02-2024 MRA Neck without Contrast Normal [facility] Magnetic resonance imaging r eportOrdered By: Nghia Waters on 12-02-2024 Study report [facility] Mean corpuscular hemoglobin (MCH) determinationOrdered By: Rasheed Canela on 12-02-2024 MCH (RBC) [Entitic mass] 29.1 pg 27.0-32.0 [facility] Mean corpuscular hemoglobin (MCH) determinationOrdered By: Nickie Danielson on 12-02-2024 MCH (RBC) [Entitic mass] 29.5 pg 27.0-32.0 [facility] Monocyte percentageOrdered B y: Rasheed Canela on 12-02-2024 Monocytes/100 WBC (Bld) 12.7 % High 0-10 [facility] Monocyte percentageOrdered B y: Nickie Danielson on 12-02-2024 Monocytes/100 WBC (Bld) 12.0 % High 0-10 [facility] Neutrophil percentageOrdered By: Rasheed Canela on 12-02-2024 Neutrophils/100 WBC (Bld) 76.7 % High 47-70 [facility] Neutrophil percentageOrdered By: Nickie Danielson on 12-02-2024 Neutrophils/100 WBC (Bld) 78.9 % High 47-70 [facility] Partial Thromboplast Timeon 12-02-2024 aPTT Coag (Bld) [Time] 31.6 s Normal 24.1-36.2 [facility] Comment on above: Performed By: #### L 300.4310, L501.4021, L300.3900, L500.2500, L100.0100 ####[facility] [address] [place], [place], [id number] Platelet countOrdered By: Afshin Canela on 12-02-2024 Platelets (Bld) [#/Vol] 134 10*3/uL Low 150-450 [facility] Platelet countOrdered By: Korina Danielson on 12-02-2024 Platelets (Bld) [#/Vol] 113 10*3/uL Low 150-450 [facility] Platelet estimateOrdered By: Rasheed Canela on 12-02-2024 Platelets LM Ql (Bld) SLT DEC ADEQ [facility] Potassium measurement (mass/ volume)Ordered By: aRsheed Canela on 12-02-2024 Potassium (Unsp spec) [Mass/Vol] 4.6 mmol/L 3.3-5.1 [facility] Potassium measurement (mass/ volume)Ordered By: Nickie Danielson on 12-02-2024 Potassium (Unsp spec) [Mass/Vol] 4.8 mmol/L 3.3-5.1 [facility] Prothrombin Time w/INRon INR Coag (PPP) [Relative time] 1.1 {INR} Normal [facility] Comment on above: Performed By: #### L 300.4310, L501.4021, L300.3900, L500.2500, L100.0100 ####[facility] [address] [place], [address] PT Coag (PPP) [Time] 14.6 s Normal 11.7-14.9 [facility] Comment on above: Performed By: #### L 300.4310, L501.4021, L300.3900, L500.2500, L100.0100 ####[facility] [address] [place], [address] Prothrombin timeOrdered By: Rasheed Canela on 12-02-2024 PT Coag (PPP) [Time] 14.6 s 11.7-14.9 [facility] RBC Auto (Bld) [#/Vol]Ordere d By: Rasheed Canela on 12-02-2024 RBC (Bld) [#/Vol] 3.81 10*6/uL Low 4.6-6.2 [facility] RBC Auto (Bld) [#/Vol]Ordere d By: Nickie Danielson on 12-02-2024 RBC (Bld) [#/Vol] 3.52 10*6/uL Low 4.6-6.2 [facility] Serum creatinine measurement (mass/volume)Ordered By: Rasheed Canela on 12-02-2024 Creatinine [Mass/Vol] 2.90 mg/dL High 0.70-1.20 [facility] Serum creatinine measurement (mass/volume)Ordered By: Nickie Danielson on 12-02-2024 Creatinine [Mass/Vol] 2.93 mg/dL High 0.70-1.20 [facility] Serum glucose measurement (m ass/volume)Ordered By: Rasheed Canela on 12-02-2024 Glucose [Mass/Vol] 175 mg/dL High 70 [facility] Serum glucose measurement (m ass/volume)Ordered By: Nickie Danielson on 12-02-2024 Glucose [Mass/Vol] 138 mg/dL High [facility] Serum or plasma calcium francine urement (mass/volume)Ordered By: Rasheed Canela on 12-02-2024 Calcium [Mass/Vol] 9.1 mg/dL 7.6-11.0 [facility] Serum or plasma calcium francine urement (mass/volume)Ordered By: Nickie Danielson on 12-02-2024 Calcium [Mass/Vol] 9.3 mg/dL 7.6-11.0 [facility] Serum or plasma urea nitroge n measurement (mass/volume)Ordered By: Rasheed Canela on 12-02-2024 Urea nitrogen [Mass/Vol] 52 mg/dL High 08-19 [facility] Serum or plasma urea nitroge n measurement (mass/volume)Ordered By: Nickie Danielson on 12-02-2024 Urea nitrogen [Mass/Vol] 50 mg/dL High 08-19 [facility] Sodium levelOrdered By: Rasheed Canela on 12-02-2024 Sodium [Moles/Vol] 131 mmol/L Low 133-145 [facility] Sodium levelOrdered By: Johanna Danielson on 12-02-2024 Sodium [Moles/Vol] 133 mmol/L 133-145 [facility] Troponin T.cardiac [Mass/vol ume] in Serum or Plasma by High sensitivity methodOrdered By: Rasheed Canela on 12-02-2024 Troponin T.cardiac High sensitivity method [Mass/Vol] > 80480 ng/L High <22 [facility] Troponin T.cardiac High sensitivity method [Mass/Vol] > 71608 ng/L High <22 [facility] White blood cell (WBC) count Ordered By: Rasheed Canela on 12-02-2024 WBC (Bld) [#/Vol] 12.7 10*3/uL High 4.4-11.0 [facility] White blood cell (WBC) count Ordered By: Nickie Danielson on 12-02-2024 WBC (Bld) [#/Vol] 11.2 10*3/uL High 4.4-11.0 [facility] 12 Lead EKGon 12-01-2024 12 Lead EKG Normal [facility] Bedside Glucoseon 12-01-2024 FINGERSTICK GLU 148 mg/dL High 74-106 [facility] Comment on above: Result Comment: WILDA GEMENT OF PATIENT CARE PER NURSING PROTOCOL Performed By: #### L 501.080 ####[facility] [address] [facility] [address] FINGERSTICK GLU 203 mg/dL High 74-106 [facility] Comment on above: Result Comment: WILDA GEMENT OF PATIENT CARE PER NURSING PROTOCOL Performed By: #### L 501.080 ####[facility] [address] [facility] [address] FINGERSTICK GLU 153 mg/dL High 74-106 [facility] Comment on above: Result Comment: WILDA GEMENT OF PATIENT CARE PER NURSING PROTOCOL Performed By: #### L 501.080 ####[facility] [address] [facility] [address] FINGERSTICK GLU 187 mg/dL High 74-106 [facility] Comment on above: Result Comment: WILDA GEMENT OF PATIENT CARE PER NURSING PROTOCOL Performed By: #### L 501.080 ####[facility] [address] [place], [address] FINGERSTICK GLU 223 mg/dL High 74-106 [facility] Comment on above: Result Comment: WILDA BARROSO OF PATIENT CARE PER NURSING PROTOCOL Performed By: #### L 501.080 ####[facility] [address] [place], [address] Bilirubin, totalOrdered By: Jose Hay on 12-01-2024 Bilirubin [Mass/Vol] 1.07 mg/dL 0.00-1.30 [facility] CBC-Complete Blood Cnt No Di ffon 12-01-2024 Erythrocyte distribution width (RBC) [Ratio] 14.0 % Normal 11.6-14.6 [facility] Comment on above: Performed By: #### L 100.0500, L500.4050 ####[facility] [address] [place], [address] Hematocrit (Bld) [Volume fraction] 33.2 % Low 40-54 [facility] Comment on above: Performed By: #### L 100.0500, L500.4050 ####[facility] [address] [place], [address] Hemoglobin (Bld) [Mass/Vol] 10.8 g/dL Low 13.0-16.5 [facility] Comment on above: Performed By: #### L 100.0500, L500.4050 ####[facility] [address] [place], [address] MCH (RBC) [Entitic mass] 29.3 pg Normal 27.0-32.0 [facility] Comment on above: Performed By: #### L 100.0500, L500.4050 ####[facility] [address] [place], [address] MCHC (RBC) [Mass/Vol] 32.5 g/dL Normal 32-36 [facility] Comment on above: Performed By: #### L 100.0500, L500.4050 ####[facility] [address] [place], [address] MCV (RBC) [Entitic vol] 90.2 fL Normal 80-94 [facility] Comment on above: Performed By: #### L 100.0500, L500.4050 ####[facility] [address] [place], [address] Platelet mean volume (Bld) [Entitic vol] 12.7 fL High 6.2-12.0 [facility] Comment on above: Performed By: #### L 100.0500, L500.4050 ####[facility] [address] [place], [address] Platelets (Bld) [#/Vol] 142 10*3/uL Low 150-450 [facility] Comment on above: Performed By: #### L 100.0500, L500.4050 ####[facility] [address] [place], [address] RBC (Bld) [#/Vol] 3.68 10*6/uL Low 4.6-6.2 [facility] Comment on above: Performed By: #### L 100.0500, L500.4050 ####[facility] [address] [place], [address] RDW SD 45.8 fl High 35.1-43.9 [facility] Comment on above: Performed By: #### L 100.0500, L500.4050 ####[facility] [address] [place], [address] WBC (Bld) [#/Vol] 14.6 10*3/uL High 4.4-11.0 [facility] Comment on above: Performed By: #### L 100.0500, L500.4050 ####[facility] [address] [place], [address] Cardiac rehabilitation repor tOrdered By: Natacha Fermin on 12-01-2024 Study report [facility] Comprehensive Metabolic Prof ilon 12-01-2024 Albumin [Mass/Vol] 3.7 g/dL Normal 3.4-4.8 [facility] Comment on above: Performed By: #### L 100.0500, L500.4050 ####[facility] [address] [place], [address] Albumin/Globulin [Mass ratio] 1.5 {ratio} Normal 0.9-2.4 [facility] Comment on above: Performed By: #### L 100.0500, L500.4050 ####[facility] [address] [place], [address] ALK PHOS 82 U/L Normal 40-129 [facility] Comment on above: Performed By: #### L 100.0500, L500.4050 ####[facility] [address] [place], [address] ALT [Catalytic activity/Vol] 77 U/L High <=46 [facility] Comment on above: Performed By: #### L 100.0500, L500.4050 ####[facility] [address] [place], [address] AST [Catalytic activity/Vol] 497 U/L High <=37 [facility] Comment on above: Performed By: #### L 100.0500, L500.4050 ####[facility] [address] [place], [address] Bilirubin [Mass/Vol] 1.07 mg/dL Normal 0.00-1.30 [facility] Comment on above: Performed By: #### L 100.0500, L500.4050 ####[facility] [address] [place], [address] BUN/CRE 14.2 RATIO Normal 10-20 [facility] Comment on above: Performed By: #### L 100.0500, L500.4050 ####[facility] [address] [place], [address] Calcium [Mass/Vol] 8.7 mg/dL Normal 7.6-11.0 [facility] Comment on above: Performed By: #### L 100.0500, L500.4050 ####[facility] [address] [place], [address] Chloride [Moles/Vol] 100 mmol/L Normal 98-108 [facility] Comment on above: Performed By: #### L 100.0500, L500.4050 ####[facility] [address] [place], [address] CO2 [Moles/Vol] 20.3 mmol/L Low 21.0-32.0 [facility] Comment on above: Performed By: #### L 100.0500, L500.4050 ####[facility] [address] [place], [address] Creatinine [Mass/Vol] 3.16 mg/dL High 0.70-1.20 [facility] Comment on above: Performed By: #### L 100.0500, L500.4050 ####[facility] [address] [place], [address] ECRCL 23.23 ml/min Low 50-250 [facility] Comment on above: Performed By: #### L 100.0500, L500.4050 ####[facility] [address] [place], [address] GAP 14 Normal 5-15 [facility] Comment on above: Performed By: #### L 100.0500, L500.4050 ####[facility] [address] [place], [address] GFR/1.73 sq M.predicted among non-blacks MDRD (S/P/Bld) [Vol rate/Area] 19 mL/min/{1.73_m2} Low >60 [facility] Comment on above: Result Comment: mL/m in/1.73m2 CKD-EPI Creatinine Equation (2020) Performed By: #### L 100.0500, L500.4050 ####[facility] [address] [place], [address] Globulin (S) [Mass/Vol] 2.4 g/dL Normal 2.2-4.2 [facility] Comment on above: Performed By: #### L 100.0500, L500.4050 ####[facility] [address] [place], [address] Glucose [Mass/Vol] 157 mg/dL High 70-99 [facility] Comment on above: Performed By: #### L 100.0500, L500.4050 ####[facility] [address] [place], [address] Potassium [Moles/Vol] 5.0 mmol/L Normal 3.3-5.1 [facility] Comment on above: Performed By: #### L 100.0500, L500.4050 ####[facility] [address] [place], [address] Sodium [Moles/Vol] 134 mmol/L Normal 133-145 [facility] Comment on above: Performed By: #### L 100.0500, L500.4050 ####[facility] [address] [place], [address] T PROT 6.0 g/dL Normal 5.9-8.4 [facility] Comment on above: Performed By: #### L 100.0500, L500.4050 ####[facility] [address] [place], [address] Urea nitrogen [Mass/Vol] 45 mg/dL High 4-19 [facility] Comment on above: Performed By: #### L 100.0500, L500.4050 ####[facility] [address] [place], [place], [id number] Echo Limited w/Contraston Echo Limited w/Contrast Normal [facility] Electrocardiogram reportOrde red By: Marcin Araujo on 12-01-2024 EKG study [facility] Work Phone: HH, Hemoglobin AND Hematocri ton 12-01-2024 Hematocrit (Bld) [Volume fraction] 32.7 % Low 40-54 [facility] Comment on above: Performed By: #### L 100.0600 ####[facility] [address] [place], [place], [address] Hemoglobin (Bld) [Mass/Vol] 10.6 g/dL Low 13.0-16.5 [facility] Comment on above: Performed By: #### L 100.0600 ####[facility] [address] [place], [place], [id number] Limited echocardiogram repor tOrdered By: Lance Espino on 12-01-2024 Study report [facility] Other Phone: No Panel InformationOrdered By: Jose Hay on 12-01-2024 497 U/L High <38 [facility] STROKE Brain/Head without Co nton 12-01-2024 STROKE Brain/Head without Cont Normal [facility] Serum globulin measurementOr dered By: Jose Hay on 12-01-2024 Globulin (S) [Mass/Vol] 2.4 g/dL 2.2-4.2 [facility] Serum or plasma alanine guerrero otransferase (ALT) measurementOrdered By: Jose Hay on 12-01-2024 ALT [Catalytic activity/Vol] 77 U/L High <47 [facility] Serum or plasma albumin francine urement (mass/volume)Ordered By: Jose Hay on 12-01-2024 Albumin [Mass/Vol] 3.7 g/dL 3.4-4.8 [facility] Serum or plasma albumin/glob ulin mass ratioOrdered By: Jose Hay on 12-01-2024 Albumin/Globulin [Mass ratio] 1.5 {ratio} 0.9-2.4 [facility] Serum or plasma alkaline bell sphatase measurementOrdered By: Jose Hay on 12-01-2024 ALP [Catalytic activity/Vol] 82 U/L 40-129 [facility] Total proteinOrdered By: Emmanuel alvarenga Jose Armando on 12-01-2024 Protein [Mass/Vol] 6.0 g/dL 5.9-8.4 [facility] 12 Lead EKGon 11-30-2024 12 Lead EKG Normal [facility] ACT Activated Clotting Timeo n 11-30-2024 ACTk CLOT TIME 187 sec High 74-137 [facility] Comment on above: Performed By: #### L 9100.0100 ####[facility] [address] [place], [place], [address] ACTk CLOT TIME 176 sec High 74-137 [facility] Comment on above: Performed By: #### L 9100.0100 ####[facility] [address] [place], [place], [address] Absolute lymphocyte countOrd ered By: Isael Bernabe on 11-30-2024 Lymphocytes Auto (Unsp spec) [#/Vol] 1.93 10*3/uL 0.83-4.51 [facility] Activated partial thrombopla stin time (aPTT) in platelet poor plasma by coagulation aOrdered By: Isael Bernabe on 11-30-2024 aPTT Coag (PPP) [Time] 112.9 s High 24.1-36.2 [facility] Anion gap in Serum or Plasma Ordered By: Isael Bernabe on 11-30-2024 Anion gap [Moles/Vol] 19 mmol/L High 5-15 [facility] Automated lymphocyte count a s percentage of total leukocytesOrdered By: Isael Bernabe on 11-30-2024 Lymphocytes/100 WBC Auto (Unsp spec) 10.1 % Low 19-41 [facility] BUN/creatinine ratioOrdered By: Isael Abikira on 11-30-2024 Urea nitrogen/Creatinine [Mass ratio] 14.4 mg/mg 02-19 [facility] Basic Metabolic Profile (BMP )on 11-30-2024 BUN/CRE 14.4 RATIO Normal - [facility] Comment on above: Performed By: #### L 300.4310, L500.2500, L501.4021, L300.3900, L100.0100 ####[facility] [address] [place], [address] Calcium [Mass/Vol] 9.5 mg/dL Normal 7.6-11.0 [facility] Comment on above: Performed By: #### L 300.4310, L500.2500, L501.4021, L300.3900, L100.0100 ####[facility] [address] [place], [address] Chloride [Moles/Vol] 98 mmol/L Normal 98-108 [facility] Comment on above: Performed By: #### L 300.4310, L500.2500, L501.4021, L300.3900, L100.0100 ####[facility] [address] [place], [address] CO2 [Moles/Vol] 18.3 mmol/L Low 21.0-32.0 [facility] Comment on above: Performed By: #### L 300.4310, L500.2500, L501.4021, L300.3900, L100.0100 ####[facility] [address] [place], [address] Creatinine [Mass/Vol] 3.10 mg/dL High 0.70-1.20 [facility] Comment on above: Performed By: #### L 300.4310, L500.2500, L501.4021, L300.3900, L100.0100 ####[facility] [address] [place], [address] GAP 19 High 5-15 [facility] Comment on above: Performed By: #### L 300.4310, L500.2500, L501.4021, L300.3900, L100.0100 ####[facility] [address] [place], [address] GFR/1.73 sq M.predicted among non-blacks MDRD (S/P/Bld) [Vol rate/Area] 20 mL/min/{1.73_m2} Low >60 [facility] Comment on above: Result Comment: mL/m in/1.73m2 CKD-EPI Creatinine Equation (2020) Performed By: #### L 300.4310, L500.2500, L501.4021, L300.3900, L100.0100 ####[facility] [address] [place], [address] Glucose [Mass/Vol] 328 mg/dL High 70-99 [facility] Comment on above: Performed By: #### L 300.4310, L500.2500, L501.4021, L300.3900, L100.0100 ####[facility] [address] [place], [address] Potassium [Moles/Vol] 4.4 mmol/L Normal 3.3-5.1 [facility] Comment on above: Performed By: #### L 300.4310, L500.2500, L501.4021, L300.3900, L100.0100 ####[facility] [address] [place], [address] Sodium [Moles/Vol] 135 mmol/L Normal 133-145 [facility] Comment on above: Performed By: #### L 300.4310, L500.2500, L501.4021, L300.3900, L100.0100 ####[facility] [address] [place], [address] Urea nitrogen [Mass/Vol] 45 mg/dL High 4-19 [facility] Comment on above: Performed By: #### L 300.4310, L500.2500, L501.4021, L300.3900, L100.0100 ####[facility] [address] [place], [address] Basophil percentageOrdered B y: Isael Bernabe on 11-30-2024 Basophils/100 WBC (Bld) 0.2 % 0-1 [facility] Bedside Glucoseon 11-30-2024 FINGERSTICK GLU 167 mg/dL High 74-106 [facility] Comment on above: Result Comment: WILDA BARROSO OF PATIENT CARE PER NURSING PROTOCOL Performed By: #### L 501.080 ####[facility] [address] [place], [address] CBC W/Diff, Automatedon 11-02 Absolute Lymph 1.93 X10 3/uL Normal 0.83-4.51 [facility] Comment on above: Performed By: #### L 300.4310, L500.2500, L501.4021, L300.3900, L100.0100 ####[facility] [address] [place], [address] Absolute Neut 15.5 X10 3/uL High 2.0-7.7 [facility] Comment on above: Performed By: #### L 300.4310, L500.2500, L501.4021, L300.3900, L100.0100 ####[facility] [address] [place], [address] Basophils/100 WBC (Bld) 0.2 % Normal 0-1 [facility] Comment on above: Performed By: #### L 300.4310, L500.2500, L501.4021, L300.3900, L100.0100 ####[facility] [address] [place], [address] Eosinophils/100 WBC (Bld) 0.4 % Normal 0-5 [facility] Comment on above: Performed By: #### L 300.4310, L500.2500, L501.4021, L300.3900, L100.0100 ####[facility] [address] [place], [address] Erythrocyte distribution width (RBC) [Ratio] 13.5 % Normal 11.6-14.6 [facility] Comment on above: Performed By: #### L 300.4310, L500.2500, L501.4021, L300.3900, L100.0100 ####[facility] [address] [place], [address] Hematocrit (Bld) [Volume fraction] 39.6 % Low 40-54 [facility] Comment on above: Performed By: #### L 300.4310, L500.2500, L501.4021, L300.3900, L100.0100 ####[facility] [address] [place], [address] Hemoglobin (Bld) [Mass/Vol] 12.5 g/dL Low 13.0-16.5 [facility] Comment on above: Performed By: #### L 300.4310, L500.2500, L501.4021, L300.3900, L100.0100 ####[facility] [address] [place], [address] IG% 0.700 Normal 0.0-0.9 [facility] Comment on above: Result Comment: IG% - Immature Granulocytes (promyelocytes, myelocytes andmetamyelocytes) > 1% indicates that a LEFT SHIFT is Present. Performed By: #### L 300.4310, L500.2500, L501.4021, L300.3900, L100.0100 ####[facility] [address] [place], [address] Lymphocytes/100 WBC (Bld) 10.1 % Low 19-41 [facility] Comment on above: Performed By: #### L 300.4310, L500.2500, L501.4021, L300.3900, L100.0100 ####[facility] [address] [place], [address] MCH (RBC) [Entitic mass] 29.3 pg Normal 27.0-32.0 [facility] Comment on above: Performed By: #### L 300.4310, L500.2500, L501.4021, L300.3900, L100.0100 ####[facility] [address] [place], [address] MCHC (RBC) [Mass/Vol] 31.6 g/dL Low 32-36 [facility] Comment on above: Performed By: #### L 300.4310, L500.2500, L501.4021, L300.3900, L100.0100 ####[facility] [address] [place], [address] MCV (RBC) [Entitic vol] 93.0 fL Normal 80-94 [facility] Comment on above: Performed By: #### L 300.4310, L500.2500, L501.4021, L300.3900, L100.0100 ####[facility] [address] [place], [address] Monocytes/100 WBC (Bld) 7.7 % Normal 0-10 [facility] Comment on above: Performed By: #### L 300.4310, L500.2500, L501.4021, L300.3900, L100.0100 ####[facility] [address] [place], [address] Neutrophils/100 WBC (Bld) 80.9 % High 47-70 [facility] Comment on above: Performed By: #### L 300.4310, L500.2500, L501.4021, L300.3900, L100.0100 ####[facility] [address] [place], [address] Nucleated RBC (Bld) [#/Vol] 0.1 10*3/uL Normal 0-5 [facility] Comment on above: Performed By: #### L 300.4310, L500.2500, L501.4021, L300.3900, L100.0100 ####[facility] [address] [place], [address] Platelet mean volume (Bld) [Entitic vol] 13.7 fL High 6.2-12.0 [facility] Comment on above: Performed By: #### L 300.4310, L500.2500, L501.4021, L300.3900, L100.0100 ####[facility] [address] [place], [address] Platelets (Bld) [#/Vol] 168 10*3/uL Normal 150-450 [facility] Comment on above: Performed By: #### L 300.4310, L500.2500, L501.4021, L300.3900, L100.0100 ####[facility] [address] [place], [address] RBC (Bld) [#/Vol] 4.26 10*6/uL Low 4.6-6.2 [facility] Comment on above: Performed By: #### L 300.4310, L500.2500, L501.4021, L300.3900, L100.0100 ####[facility] [address] [place], [address] RDW SD 45.9 fl High 35.1-43.9 [facility] Comment on above: Performed By: #### L 300.4310, L500.2500, L501.4021, L300.3900, L100.0100 ####[facility] [address] [place], [address] WBC (Bld) [#/Vol] 19.2 10*3/uL High 4.4-11.0 [facility] Comment on above: Performed By: #### L 300.4310, L500.2500, L501.4021, L300.3900, L100.0100 ####[facility] [address] [place], [address] CBC-Complete Blood Cnt No Di ffon 11-30-2024 HCT Normal 40-54 [facility] Comment on above: Result Comment: NO S PECIMEN COLLECTED Performed By: #### L 100.0500 ####[facility] [address] [place], [address] HGB Normal 13.0-16.5 [facility] Comment on above: Result Comment: NO S PECIMEN COLLECTED Performed By: #### L 100.0500 ####[facility] [address] [place], [address] MCH Normal 27.0-32.0 [facility] Comment on above: Result Comment: NO S PECIMEN COLLECTED Performed By: #### L 100.0500 ####[facility] [address] [place], [address] MCHC Normal 32-36 [facility] Comment on above: Result Comment: NO S PECIMEN COLLECTED Performed By: #### L 100.0500 ####[facility] [address] [place], [address] MCV Normal 80-94 [facility] Comment on above: Result Comment: NO S PECIMEN COLLECTED Performed By: #### L 100.0500 ####[facility] [address] [place], [address] PLT Normal 150-450 [facility] Comment on above: Result Comment: NO S PECIMEN COLLECTED Performed By: #### L 100.0500 ####[facility] [address] [place], [address] RBC Normal 4.6-6.2 [facility] Comment on above: Result Comment: NO S PECIMEN COLLECTED Performed By: #### L 100.0500 ####[facility] [address] [place], [address] RDW CV Normal 11.6-14.6 [facility] Comment on above: Result Comment: NO S PECIMEN COLLECTED Performed By: #### L 100.0500 ####[facility] [address] [place], [address] RDW SD Normal 35.1-43.9 [facility] Comment on above: Result Comment: NO S PECIMEN COLLECTED Performed By: #### L 100.0500 ####[facility] [address] [place], [address] WBC Normal 4.4-11.0 [facility] Comment on above: Result Comment: NO S PECIMEN COLLECTED Performed By: #### L 100.0500 ####[facility] [address] [place], [address] Carbon dioxide, total [Moles /volume] in Central venous bloodOrdered By: Isael Bernabe on 11-30-2024 CO2 [Moles/Vol] 18.3 mmol/L Low 21.0-32.0 [facility] Chest 1 View (Portable)on Chest 1 View (Portable) Normal [facility] Chloride assayOrdered By: Jaylen Bernabe on 11-30-2024 Chloride [Moles/Vol] 98 mmol/L 98-108 [facility] Consultation - Cardiologyon 11-30-2024 Consultation - Cardiology Normal [facility] Emergency Department Summary on 11-30-2024 Emergency Department Summary Normal [facility] Eosinophil percentageOrdered By: Isael Bernabe on 11-30-2024 Eosinophils/100 WBC (Bld) 0.4 % 0-5 [facility] Erythrocyte distribution wid th ratioOrdered By: Isael Bernabe on 11-30-2024 Erythrocyte distribution width (RBC) [Ratio] 13.5 % 11.6-14.6 [facility] Erythrocyte distribution wid th standard deviationOrdered By: Isael Bernabe on 11-30-2024 Erythrocyte distribution width (RBC) [Ratio] 45.9 fl High 35.1-43.9 [facility] Glomerular filtration rate ( GFR) estimation/1.73 sq m using serum, plasma, or whole bOrdered By: Isael Bernabe on 11-30-2024 GFR/1.73 sq M.predicted among non-blacks MDRD (S/P/Bld) [Vol rate/Area] 20 mL/min/{1.73_m2} Low >60 [facility] H AND P Exam - Hospitaliston 11-30-2024 H&P Exam - Hospitalist Normal [facility] Hematocrit Auto (Bld) [Volum e fraction]Ordered By: Isael Bernabe on 11-30-2024 Hematocrit (Bld) [Volume fraction] 39.6 % Low 40-54 [facility] Hemoglobin A1con 11-30-2024 HbA1c (Bld) [Mass fraction] 7.0 % High <=5.6 [facility] Comment on above: Result Comment: Norm al < 5.7 % Prediabetic 5.7 - 6.4 % Diabetic >or= 6.5 % Please note range changes. Performed By: #### L 590.5966 ####[facility] [address] [place], [address] Hemoglobin A1c percentageOrd ered By: Abraham Ridley on 11-30-2024 HbA1c (Bld) [Mass fraction] 7.0 % High <5.7 [facility] Hemoglobin measurementOrdere d By: Isael Bernabe on 11-30-2024 Hemoglobin (Bld) [Mass/Vol] 12.5 g/dL Low 13.0-16.5 [facility] Immature granulocytes/100 WB C Auto (Bld)Ordered By: Isael Bernabe on 11-30-2024 Immature granulocytes/100 WBC (Bld) 0.700 % 0.0-0.9 [facility] L501.4021on 11-30-2024 Trop T High Sen 61 ng/L Invalid Interpretation Code <=22 [facility] Comment on above: Result Comment: Crit ical Result(s) Called at: 1621 by: MOISE MEDINA??Results read back by same. Performed By: #### L 300.4310, L500.2500, L501.4021, L300.3900, L100.0100 ####[facility] [address] [place], [place], [id number] MCV (mean corpuscular volume ) determinationOrdered By: Isael Bernabe on 11-30-2024 MCV (RBC) [Entitic vol] 93.0 fL 80-94 [facility] MR/QUALITYon 11-30-2024 MR/QUALITY Normal [facility] Mean corpuscular hemoglobin (MCH) determinationOrdered By: Isael Bernabe on 11-30-2024 MCH (RBC) [Entitic mass] 29.3 pg 27.0-32.0 [facility] Monocyte percentageOrdered B y: Isael Bernabe on 11-30-2024 Monocytes/100 WBC (Bld) 7.7 % 0-10 [facility] Neutrophil percentageOrdered By: Isael Bernabe on 11-30-2024 Neutrophils/100 WBC (Bld) 80.9 % High 47-70 [facility] Partial Thromboplast Timeon 11-30-2024 aPTT Coag (Bld) [Time] 112.9 s Invalid Interpretation Code 24.1-36.2 [facility] Comment on above: Result Comment: CRIT ICAL VALUE CALLED TO CAITLIN ANTOINE11/30/24 1720 Krysta Turcios.RESULTS READ BACK BY SAME. Performed By: #### L 300.4310, L500.2500, L501.4021, L300.3900, L100.0100 ####[facility] [address] [place], [place], [address] Platelet countOrdered By: Jaylen Bernabe on 11-30-2024 Platelets (Bld) [#/Vol] 168 10*3/uL 150-450 [facility] Potassium measurement (mass/ volume)Ordered By: Isael Bernabe on 11-30-2024 Potassium (Unsp spec) [Mass/Vol] 4.4 mmol/L 3.3-5.1 [facility] Prothrombin Time w/INRon INR Coag (PPP) [Relative time] 1.3 {INR} Normal [facility] Comment on above: Performed By: #### L 300.4310, L500.2500, L501.4021, L300.3900, L100.0100 ####[facility] [address] [place], [place], [id number] PT Coag (PPP) [Time] 16.1 s High 11.7-14.9 [facility] Comment on above: Performed By: #### L 300.4310, L500.2500, L501.4021, L300.3900, L100.0100 ####[facility] [address] [place], [place], [id number] Prothrombin timeOrdered By: Isael Bernabe on 11-30-2024 PT Coag (PPP) [Time] 16.1 s High 11.7-14.9 [facility] RBC Auto (Bld) [#/Vol]Ordere d By: Isael Bernabe on 11-30-2024 RBC (Bld) [#/Vol] 4.26 10*6/uL Low 4.6-6.2 [facility] Serum creatinine measurement (mass/volume)Ordered By: Isael Bernabe on 11-30-2024 Creatinine [Mass/Vol] 3.10 mg/dL High 0.70-1.20 [facility] Serum glucose measurement (m ass/volume)Ordered By: Isael Bernabe on 11-30-2024 Glucose [Mass/Vol] 328 mg/dL High 70-99 [facility] Serum or plasma calcium francine urement (mass/volume)Ordered By: Isael Bernabe on 11-30-2024 Calcium [Mass/Vol] 9.5 mg/dL 7.6-11.0 [facility] Serum or plasma urea nitroge n measurement (mass/volume)Ordered By: Isael Bernabe on 11-30-2024 Urea nitrogen [Mass/Vol] 45 mg/dL High 4-19 [facility] Sodium levelOrdered By: Isael Bernabe on 11-30-2024 Sodium [Moles/Vol] 135 mmol/L 133-145 [facility] Troponin T HS 2 HRon 025 Trop T High Sen Normal <=22 [facility] Comment on above: Result Comment: Edy crews via OM: Ordered Performed By: #### L 499.0042 ####[facility] [address] [facility] [id number] Troponin T HS 4 HRon 025 Trop T High Sen Normal <=22 [facility] Comment on above: Result Comment: Edy crews via OM: Ordered Performed By: #### L 499.0043 ####[facility] [address] [facility] [id number] Troponin T.cardiac [Mass/vol ume] in Serum or Plasma by High sensitivity methodOrdered By: Isael Bernabe on 11-30-2024 Troponin T.cardiac High sensitivity method [Mass/Vol] 61 ng/L High <22 [facility] White blood cell (WBC) count Ordered By: Isael Bernabe on 11-30-2024 WBC (Bld) [#/Vol] 19.2 10*3/uL High 4.4-11.0 [facility] ACT Activated Clotting Timeo n 11-28-2024 ACTk CLOT TIME 205 sec High 74-137 [facility] Comment on above: Performed By: #### L 9100.0100 ####[facility] [address] [facility] [id number] ACTk CLOT TIME 227 sec High 74-137 [facility] Comment on above: Performed By: #### L 9100.0100 ####[facility] [address] [place], [address] Anion gap in Serum or Plasma Ordered By: Jose Hay on 11-28-2024 Anion gap [Moles/Vol] 13 mmol/L 5-15 [facility] BUN/creatinine ratioOrdered By: Jose Hay on 11-28-2024 Urea nitrogen/Creatinine [Mass ratio] 15.2 mg/mg 10-20 [facility] Bilirubin, totalOrdered By: Josejina Hay on 11-28-2024 Bilirubin [Mass/Vol] 0.78 mg/dL 0.00-1.30 [facility] CBC-Complete Blood Cnt No Di ffon 11-28-2024 Erythrocyte distribution width (RBC) [Ratio] 13.6 % Normal 11.6-14.6 [facility] Comment on above: Performed By: #### L 500.4050, L100.0500 ####[facility] [address] [place], [address] Hematocrit (Bld) [Volume fraction] 35.3 % Low 40-54 [facility] Comment on above: Performed By: #### L 500.4050, L100.0500 ####[facility] [address] [place], [address] Hemoglobin (Bld) [Mass/Vol] 11.3 g/dL Low 13.0-16.5 [facility] Comment on above: Performed By: #### L 500.4050, L100.0500 ####[facility] [address] [place], [address] MCH (RBC) [Entitic mass] 29.4 pg Normal 27.0-32.0 [facility] Comment on above: Performed By: #### L 500.4050, L100.0500 ####[facility] [address] [place], [address] MCHC (RBC) [Mass/Vol] 32.0 g/dL Normal 32-36 [facility] Comment on above: Performed By: #### L 500.4050, L100.0500 ####[facility] [address] [place], [address] MCV (RBC) [Entitic vol] 91.7 fL Normal 80-94 [facility] Comment on above: Performed By: #### L 500.4050, L100.0500 ####[facility] [address] [place], [address] Platelet mean volume (Bld) [Entitic vol] 12.6 fL High 6.2-12.0 [facility] Comment on above: Performed By: #### L 500.4050, L100.0500 ####[facility] [address] [place], [address] Platelets (Bld) [#/Vol] 108 10*3/uL Low 150-450 [facility] Comment on above: Performed By: #### L 500.4050, L100.0500 ####[facility] [address] [place], [address] RBC (Bld) [#/Vol] 3.85 10*6/uL Low 4.6-6.2 [facility] Comment on above: Performed By: #### L 500.4050, L100.0500 ####[facility] [address] [place], [address] RDW SD 46.1 fl High 35.1-43.9 [facility] Comment on above: Performed By: #### L 500.4050, L100.0500 ####[facility] [address] [place], [address] WBC (Bld) [#/Vol] 7.1 10*3/uL Normal 4.4-11.0 [facility] Comment on above: Performed By: #### L 500.4050, L100.0500 ####[facility] [address] [place], [address] Carbon dioxide, total [Moles /volume] in Central venous bloodOrdered By: Jose Hay on 11-28-2024 CO2 [Moles/Vol] 23.7 mmol/L 21.0-32.0 [facility] Chloride assayOrdered By: Harsh Hay on 11-28-2024 Chloride [Moles/Vol] 102 mmol/L 98-108 [facility] Comprehensive Metabolic Prof ilon 11-28-2024 Albumin [Mass/Vol] 3.8 g/dL Normal 3.4-4.8 [facility] Comment on above: Performed By: #### L 500.4050, L100.0500 ####[facility] [address] [place], [address] Albumin/Globulin [Mass ratio] 1.4 {ratio} Normal 0.9-2.4 [facility] Comment on above: Performed By: #### L 500.4050, L100.0500 ####[facility] [address] [place], [address] ALK PHOS 93 U/L Normal 40-129 [facility] Comment on above: Performed By: #### L 500.4050, L100.0500 ####[facility] [address] [place], [address] ALT [Catalytic activity/Vol] 27 U/L Normal <=46 [facility] Comment on above: Result Comment: Hemo lysis present, Results??could be affected.?? Performed By: #### L 500.4050, L100.0500 ####[facility] [address] [place], [address] AST [Catalytic activity/Vol] 33 U/L Normal <=37 [facility] Comment on above: Result Comment: Hemo lysis present, Results??could be affected.?? Performed By: #### L 500.4050, L100.0500 ####[facility] [address] [place], [address] Bilirubin [Mass/Vol] 0.78 mg/dL Normal 0.00-1.30 [facility] Comment on above: Performed By: #### L 500.4050, L100.0500 ####[facility] [address] [place], [address] BUN/CRE 15.2 RATIO Normal 10-20 [facility] Comment on above: Performed By: #### L 500.4050, L100.0500 ####[facility] [address] [place], [address] Calcium [Mass/Vol] 9.2 mg/dL Normal 7.6-11.0 [facility] Comment on above: Performed By: #### L 500.4050, L100.0500 ####[facility] [address] [place], [address] Chloride [Moles/Vol] 102 mmol/L Normal 98-108 [facility] Comment on above: Performed By: #### L 500.4050, L100.0500 ####[facility] [address] [place], [address] CO2 [Moles/Vol] 23.7 mmol/L Normal 21.0-32.0 [facility] Comment on above: Performed By: #### L 500.4050, L100.0500 ####[facility] [address] [place], [address] Creatinine [Mass/Vol] 1.93 mg/dL High 0.70-1.20 [facility] Comment on above: Performed By: #### L 500.4050, L100.0500 ####[facility] [address] [place], [address] ECRCL 37.66 ml/min Low 50-250 [facility] Comment on above: Performed By: #### L 500.4050, L100.0500 ####[facility] [address] [place], [address] GAP 13 Normal 5-15 [facility] Comment on above: Performed By: #### L 500.4050, L100.0500 ####[facility] [address] [place], [address] GFR/1.73 sq M.predicted among non-blacks MDRD (S/P/Bld) [Vol rate/Area] 35 mL/min/{1.73_m2} Low >60 [facility] Comment on above: Result Comment: mL/m in/1.73m2 CKD-EPI Creatinine Equation (2020) Performed By: #### L 500.4050, L100.0500 ####[facility] [address] [place], [address] Globulin (S) [Mass/Vol] 2.8 g/dL Normal 2.2-4.2 [facility] Comment on above: Performed By: #### L 500.4050, L100.0500 ####[facility] [address] [place], [address] Glucose [Mass/Vol] 130 mg/dL High 70-99 [facility] Comment on above: Performed By: #### L 500.4050, L100.0500 ####[facility] [address] [place], [address] Potassium [Moles/Vol] 4.4 mmol/L Normal 3.3-5.1 [facility] Comment on above: Result Comment: Hemo lysis present, Results??could be affected.?? Performed By: #### L 500.4050, L100.0500 ####[facility] [address] [place], [address] Sodium [Moles/Vol] 139 mmol/L Normal 133-145 [facility] Comment on above: Performed By: #### L 500.4050, L100.0500 ####[facility] [address] [place], [address] T PROT 6.6 g/dL Normal 5.9-8.4 [facility] Comment on above: Performed By: #### L 500.4050, L100.0500 ####[facility] [address] [place], [address] Urea nitrogen [Mass/Vol] 29 mg/dL High 4-19 [facility] Comment on above: Performed By: #### L 500.4050, L100.0500 ####[facility] [address] [place], [address] Erythrocyte distribution wid th ratioOrdered By: Jose Hay on 11-28-2024 Erythrocyte distribution width (RBC) [Ratio] 13.6 % 11.6-14.6 [facility] Erythrocyte distribution wid th standard deviationOrdered By: Jose Hay on 11-28-2024 Erythrocyte distribution width (RBC) [Ratio] 46.1 fl High 35.1-43.9 [facility] Glomerular filtration rate ( GFR) estimation/1.73 sq m using serum, plasma, or whole bOrdered By: Jose Hay on 11-28-2024 GFR/1.73 sq M.predicted among non-blacks MDRD (S/P/Bld) [Vol rate/Area] 35 mL/min/{1.73_m2} Low >60 [facility] Hematocrit Auto (Bld) [Volum e fraction]Ordered By: Jose Hay on 11-28-2024 Hematocrit (Bld) [Volume fraction] 35.3 % Low 40-54 [facility] Hemoglobin measurementOrdere d By: Jose Hay on 11-28-2024 Hemoglobin (Bld) [Mass/Vol] 11.3 g/dL Low 13.0-16.5 [facility] MCV (mean corpuscular volume ) determinationOrdered By: Jose Hay on 11-28-2024 MCV (RBC) [Entitic vol] 91.7 fL 80-94 [facility] Mean corpuscular hemoglobin (MCH) determinationOrdered By: Jose Hay on 11-28-2024 MCH (RBC) [Entitic mass] 29.4 pg 27.0-32.0 [facility] No Panel InformationOrdered By: Jose Hay on 11-28-2024 33 U/L <38 [facility] Platelet countOrdered By: Harsh Hay on 11-28-2024 Platelets (Bld) [#/Vol] 108 10*3/uL Low 150-450 [facility] Potassium measurement (mass/ volume)Ordered By: Jose Hay on 11-28-2024 Potassium (Unsp spec) [Mass/Vol] 4.4 mmol/L 3.3-5.1 [facility] RBC Auto (Bld) [#/Vol]Ordere d By: Jose Hay on 11-28-2024 RBC (Bld) [#/Vol] 3.85 10*6/uL Low 4.6-6.2 [facility] Serum creatinine measurement (mass/volume)Ordered By: Jose Hay on 11-28-2024 Creatinine [Mass/Vol] 1.93 mg/dL High 0.70-1.20 [facility] Serum globulin measurementOr dered By: Jose Hay on 11-28-2024 Globulin (S) [Mass/Vol] 2.8 g/dL 2.2-4.2 [facility] Serum glucose measurement (m ass/volume)Ordered By: Jose Hay on 11-28-2024 Glucose [Mass/Vol] 130 mg/dL High 70-99 [facility] Serum or plasma alanine guerrero otransferase (ALT) measurementOrdered By: Jose Hay on 11-28-2024 ALT [Catalytic activity/Vol] 27 U/L <47 [facility] Serum or plasma albumin francine urement (mass/volume)Ordered By: Jose Hay on 11-28-2024 Albumin [Mass/Vol] 3.8 g/dL 3.4-4.8 [facility] Serum or plasma albumin/glob ulin mass ratioOrdered By: Jose Hay on 11-28-2024 Albumin/Globulin [Mass ratio] 1.4 {ratio} 0.9-2.4 [facility] Serum or plasma alkaline bell sphatase measurementOrdered By: Josejina Hay on 11-28-2024 ALP [Catalytic activity/Vol] 93 U/L 40-129 [facility] Serum or plasma calcium francine urement (mass/volume)Ordered By: Jose Jose Armando on 11-28-2024 Calcium [Mass/Vol] 9.2 mg/dL 7.6-11.0 [facility] Serum or plasma urea nitroge n measurement (mass/volume)Ordered By: Josejina Hay on 11-28-2024 Urea nitrogen [Mass/Vol] 29 mg/dL High 4-19 [facility] Sodium levelOrdered By: Ernst juan c Hay on 11-28-2024 Sodium [Moles/Vol] 139 mmol/L 133-145 [facility] Total proteinOrdered By: Emmanuel Hay on 11-28-2024 Protein [Mass/Vol] 6.6 g/dL 5.9-8.4 [facility] White blood cell (WBC) count Ordered By: Josejina Hay on 11-28-2024 WBC (Bld) [#/Vol] 7.1 10*3/uL 4.4-11.0 [facility] 12 Lead EKGon 11-27-2024 12 Lead EKG Normal [facility] Cardiac rehabilitation repor tOrdered By: Karrie Arceo on 11-27-2024 Study report [facility] Discharge Instructionon 07-2 Discharge Instruction Normal [facility] 12 Lead EKGon 11-26-2024 12 Lead EKG Normal [facility] Absolute lymphocyte countOrd ered By: Isael Bernabe on 11-26-2024 Lymphocytes Auto (Unsp spec) [#/Vol] 1.53 10*3/uL 0.83-4.51 [facility] Anion gap in Serum or Plasma Ordered By: Isael Bernabe on 11-26-2024 Anion gap [Moles/Vol] 15 mmol/L 5-15 [facility] Automated lymphocyte count a s percentage of total leukocytesOrdered By: Isael Bernabe on 11-26-2024 Lymphocytes/100 WBC Auto (Unsp spec) 16.7 % Low 19-41 [facility] BUN/creatinine ratioOrdered By: Isael Bernabe on 11-26-2024 Urea nitrogen/Creatinine [Mass ratio] 18.2 mg/mg - [facility] Basic Metabolic Profile (BMP )on 11-26-2024 BUN/CRE 18.2 RATIO Normal - [facility] Comment on above: Performed By: #### L 500.2500, L100.0100, L501.4021, L503.7505 ####[facility] [address] [place], [address] Calcium [Mass/Vol] 9.2 mg/dL Normal 7.6-11.0 [facility] Comment on above: Performed By: #### L 500.2500, L100.0100, L501.4021, L503.7505 ####[facility] [address] [place], [address] Chloride [Moles/Vol] 100 mmol/L Normal 98-108 [facility] Comment on above: Performed By: #### L 500.2500, L100.0100, L501.4021, L503.7505 ####[facility] [address] [place], [address] CO2 [Moles/Vol] 21.5 mmol/L Normal 21.0-32.0 [facility] Comment on above: Performed By: #### L 500.2500, L100.0100, L501.4021, L503.7505 ####[facility] [address] [place], [address] Creatinine [Mass/Vol] 2.34 mg/dL High 0.70-1.20 [facility] Comment on above: Performed By: #### L 500.2500, L100.0100, L501.4021, L503.7505 ####[facility] [address] [place], [address] ECRCL 31.97 ml/min Low 50-250 [facility] Comment on above: Performed By: #### L 500.2500, L100.0100, L501.4021, L503.7505 ####[facility] [address] [place], [address] GAP 15 Normal 5-15 [facility] Comment on above: Performed By: #### L 500.2500, L100.0100, L501.4021, L503.7505 ####[facility] [address] [place], [address] GFR/1.73 sq M.predicted among non-blacks MDRD (S/P/Bld) [Vol rate/Area] 28 mL/min/{1.73_m2} Low >60 [facility] Comment on above: Result Comment: mL/m in/1.73m2 CKD-EPI Creatinine Equation (2020) Performed By: #### L 500.2500, L100.0100, L501.4021, L503.7505 ####[facility] [address] [place], [address] Glucose [Mass/Vol] 275 mg/dL High 70-99 [facility] Comment on above: Performed By: #### L 500.2500, L100.0100, L501.4021, L503.7505 ####[facility] [address] [place], [address] Potassium [Moles/Vol] 4.4 mmol/L Normal 3.3-5.1 [facility] Comment on above: Performed By: #### L 500.2500, L100.0100, L501.4021, L503.7505 ####[facility] [address] [place], [address] Sodium [Moles/Vol] 137 mmol/L Normal 133-145 [facility] Comment on above: Performed By: #### L 500.2500, L100.0100, L501.4021, L503.7505 ####[facility] [address] [place], [address] Urea nitrogen [Mass/Vol] 43 mg/dL High 4-19 [facility] Comment on above: Performed By: #### L 500.2500, L100.0100, L501.4021, L503.7505 ####[facility] [address] [place], [address] Basophil percentageOrdered B y: Isael Bernabe on 11-26-2024 Basophils/100 WBC (Bld) 0.3 % 0-1 [facility] Brain/Head without Contrasto n 11-26-2024 Brain/Head without Contrast Normal [facility] CBC W/Diff, Automatedon 11-01 Absolute Lymph 1.53 X10 3/uL Normal 0.83-4.51 [facility] Comment on above: Performed By: #### L 500.2500, L100.0100, L501.4021, L503.7505 ####[facility] [address] [place], [address] Absolute Neut 6.6 X10 3/uL Normal 2.0-7.7 [facility] Comment on above: Performed By: #### L 500.2500, L100.0100, L501.4021, L503.7505 ####[facility] [address] [place], [address] Basophils/100 WBC (Bld) 0.3 % Normal 0-1 [facility] Comment on above: Performed By: #### L 500.2500, L100.0100, L501.4021, L503.7505 ####[facility] [address] [place], [address] Eosinophils/100 WBC (Bld) 1.3 % Normal 0-5 [facility] Comment on above: Performed By: #### L 500.2500, L100.0100, L501.4021, L503.7505 ####[facility] [address] [place], [address] Erythrocyte distribution width (RBC) [Ratio] 13.9 % Normal 11.6-14.6 [facility] Comment on above: Performed By: #### L 500.2500, L100.0100, L501.4021, L503.7505 ####[facility] [address] [place], [address] Hematocrit (Bld) [Volume fraction] 36.7 % Low 40-54 [facility] Comment on above: Performed By: #### L 500.2500, L100.0100, L501.4021, L503.7505 ####[facility] [address] [place], [address] Hemoglobin (Bld) [Mass/Vol] 11.8 g/dL Low 13.0-16.5 [facility] Comment on above: Performed By: #### L 500.2500, L100.0100, L501.4021, L503.7505 ####[facility] [address] [place], [address] IG% 0.400 Normal 0.0-0.9 [facility] Comment on above: Result Comment: IG% - Immature Granulocytes (promyelocytes, myelocytes andmetamyelocytes) > 1% indicates that a LEFT SHIFT is Present. Performed By: #### L 500.2500, L100.0100, L501.4021, L503.7505 ####[facility] [address] [place], [address] Lymphocytes/100 WBC (Bld) 16.7 % Low 19-41 [facility] Comment on above: Performed By: #### L 500.2500, L100.0100, L501.4021, L503.7505 ####[facility] [address] [place], [address] MCH (RBC) [Entitic mass] 29.2 pg Normal 27.0-32.0 [facility] Comment on above: Performed By: #### L 500.2500, L100.0100, L501.4021, L503.7505 ####[facility] [address] [place], [address] MCHC (RBC) [Mass/Vol] 32.2 g/dL Normal 32-36 [facility] Comment on above: Performed By: #### L 500.2500, L100.0100, L501.4021, L503.7505 ####[facility] [address] [place], [address] MCV (RBC) [Entitic vol] 90.8 fL Normal 80-94 [facility] Comment on above: Performed By: #### L 500.2500, L100.0100, L501.4021, L503.7505 ####[facility] [address] [place], [address] Monocytes/100 WBC (Bld) 9.5 % Normal 0-10 [facility] Comment on above: Performed By: #### L 500.2500, L100.0100, L501.4021, L503.7505 ####[facility] [address] [place], [address] Neutrophils/100 WBC (Bld) 71.8 % High 47-70 [facility] Comment on above: Performed By: #### L 500.2500, L100.0100, L501.4021, L503.7505 ####[facility] [address] [place], [address] Nucleated RBC (Bld) [#/Vol] 0 10*3/uL Normal 0-5 [facility] Comment on above: Performed By: #### L 500.2500, L100.0100, L501.4021, L503.7505 ####[facility] [address] [place], [address] Platelet mean volume (Bld) [Entitic vol] 12.8 fL High 6.2-12.0 [facility] Comment on above: Performed By: #### L 500.2500, L100.0100, L501.4021, L503.7505 ####[facility] [address] [place], [address] Platelets (Bld) [#/Vol] 132 10*3/uL Low 150-450 [facility] Comment on above: Performed By: #### L 500.2500, L100.0100, L501.4021, L503.7505 ####[facility] [address] [place], [address] RBC (Bld) [#/Vol] 4.04 10*6/uL Low 4.6-6.2 [facility] Comment on above: Performed By: #### L 500.2500, L100.0100, L501.4021, L503.7505 ####[facility] [address] [place], [address] RDW SD 46.6 fl High 35.1-43.9 [facility] Comment on above: Performed By: #### L 500.2500, L100.0100, L501.4021, L503.7505 ####[facility] [address] [place], [address] WBC (Bld) [#/Vol] 9.2 10*3/uL Normal 4.4-11.0 [facility] Comment on above: Performed By: #### L 500.2500, L100.0100, L501.4021, L503.7505 ####[facility] [address] [place], [address] Carbon dioxide, total [Moles /volume] in Central venous bloodOrdered By: Isael Bernabe on 11-26-2024 CO2 [Moles/Vol] 21.5 mmol/L 21.0-32.0 [facility] Chest 1 View (Portable)on Chest 1 View (Portable) Normal [facility] Chloride assayOrdered By: Jaylen Bernabe on 11-26-2024 Chloride [Moles/Vol] 100 mmol/L 98-108 [facility] Emergency Department Summary on 11-26-2024 Emergency Department Summary Normal [facility] Eosinophil percentageOrdered By: Isael Bernabe on 11-26-2024 Eosinophils/100 WBC (Bld) 1.3 % 0-5 [facility] Erythrocyte distribution wid th ratioOrdered By: Isael Bernabe on 11-26-2024 Erythrocyte distribution width (RBC) [Ratio] 13.9 % 11.6-14.6 [facility] Erythrocyte distribution wid th standard deviationOrdered By: Isael Bernabe on 11-26-2024 Erythrocyte distribution width (RBC) [Ratio] 46.6 fl High 35.1-43.9 [facility] Glomerular filtration rate ( GFR) estimation/1.73 sq m using serum, plasma, or whole bOrdered By: Isael Bernabe on 11-26-2024 GFR/1.73 sq M.predicted among non-blacks MDRD (S/P/Bld) [Vol rate/Area] 28 mL/min/{1.73_m2} Low >60 [facility] Hand Min 3 Viewson Hand Min 3 Views Normal [facility] Hematocrit Auto (Bld) [Volum e fraction]Ordered By: Isael Bernabe on 11-26-2024 Hematocrit (Bld) [Volume fraction] 36.7 % Low 40-54 [facility] Hemoglobin measurementOrdere d By: Isael Bernabe on 11-26-2024 Hemoglobin (Bld) [Mass/Vol] 11.8 g/dL Low 13.0-16.5 [facility] Immature granulocytes/100 WB C Auto (Bld)Ordered By: Isael Bernabe on 11-26-2024 Immature granulocytes/100 WBC (Bld) 0.400 % 0.0-0.9 [facility] Knee 4 or More Viewson 11-26 Knee 4 or More Views Normal [facility] Knee 4 or More Views Normal [facility] L501.4021on 11-26-2024 Trop T High Sen 18 ng/L Normal <=22 [facility] Comment on above: Performed By: #### L 500.2500, L100.0100, L501.4021, L503.7505 ####[facility] [address] [place], [address] MCV (mean corpuscular volume ) determinationOrdered By: Isael Bernabe on 11-26-2024 MCV (RBC) [Entitic vol] 90.8 fL 80-94 [facility] Mean corpuscular hemoglobin (MCH) determinationOrdered By: Isael Bernabe on 11-26-2024 MCH (RBC) [Entitic mass] 29.2 pg 27.0-32.0 [facility] Monocyte percentageOrdered B y: Isael Bernabe on 11-26-2024 Monocytes/100 WBC (Bld) 9.5 % 0-10 [facility] Natriuretic peptide.B prohor efrem N-Terminal [Mass/volume] in Serum or PlasmaOrdered By: Isael Bernabe on 11-26-2024 Natriuretic peptide.B prohormone N-Terminal [Mass/Vol] 162 pg/mL <1800 [facility] Neutrophil percentageOrdered By: Isael Bernabe on 11-26-2024 Neutrophils/100 WBC (Bld) 71.8 % High 47-70 [facility] Platelet countOrdered By: Jaylen Bernabe on 11-26-2024 Platelets (Bld) [#/Vol] 132 10*3/uL Low 150-450 [facility] Potassium measurement (mass/ volume)Ordered By: Isael Bernabe on 11-26-2024 Potassium (Unsp spec) [Mass/Vol] 4.4 mmol/L 3.3-5.1 [facility] Pro- Brain NATRIURETIC PEPTI Sharon 11-26-2024 Natriuretic peptide B (Bld) [Mass/Vol] 162 pg/mL Normal <=1800 [facility] Comment on above: Result Comment: Hear t Failure Unlikely: < 300 pg/mLHeart Failure Likely< 50 Years: > 450 pg/mL50-75 Years: > 900 pg/mL>75 Years: > 1800 pg/mL Performed By: #### L 500.2500, L100.0100, L501.4021, L503.7505 ####[facility] [address] [place], [address] RBC Auto (Bld) [#/Vol]Ordere d By: Isael Bernabe on 11-26-2024 RBC (Bld) [#/Vol] 4.04 10*6/uL Low 4.6-6.2 [facility] Serum creatinine measurement (mass/volume)Ordered By: Isael Bernabe on 11-26-2024 Creatinine [Mass/Vol] 2.34 mg/dL High 0.70-1.20 [facility] Serum glucose measurement (m ass/volume)Ordered By: Isael Bernabe on 11-26-2024 Glucose [Mass/Vol] 275 mg/dL High 70-99 [facility] Serum or plasma calcium francine urement (mass/volume)Ordered By: Isael Bernabe on 11-26-2024 Calcium [Mass/Vol] 9.2 mg/dL 7.6-11.0 [facility] Serum or plasma urea nitroge n measurement (mass/volume)Ordered By: Isael Bernabe on 11-26-2024 Urea nitrogen [Mass/Vol] 43 mg/dL High 4-19 [facility] Sodium levelOrdered By: Isael Bernabe on 11-26-2024 Sodium [Moles/Vol] 137 mmol/L 133-145 [facility] Spine Cervical without Contr ason 11-26-2024 Spine Cervical without Contras Normal [facility] Troponin T HS 2 HRon 025 Trop T High Sen 20 ng/L Normal <=22 [facility] Comment on above: Performed By: #### L 499.0042 ####[facility] [address] [place], [place], [address] Troponin T HS 4 HRon 025 Trop T High Sen Normal <=22 [facility] Comment on above: Result Comment: Canc elled via OM: Order cancelled - Patient discharged Performed By: #### L 499.0043 ####[facility] [address] [place], [address] Troponin T.cardiac [Mass/vol ume] in Serum or Plasma by High sensitivity methodOrdered By: Isael Bernabe on 11-26-2024 Troponin T.cardiac High sensitivity method [Mass/Vol] 20 ng/L <22 [facility] Troponin T.cardiac High sensitivity method [Mass/Vol] 18 ng/L <22 [facility] White blood cell (WBC) count Ordered By: Isael Bernabe on 11-26-2024 WBC (Bld) [#/Vol] 9.2 10*3/uL 4.4-11.0 [facility] Absolute lymphocyte countOrd ered By: Gustabo Pérez on 11-22-2024 Lymphocytes Auto (Unsp spec) [#/Vol] 1.37 10*3/uL 0.83-4.51 [facility] Anion gap in Serum or Plasma Ordered By: Gustabo Pérez on 11-22-2024 Anion gap [Moles/Vol] 15 mmol/L 5-15 [facility] Automated lymphocyte count a s percentage of total leukocytesOrdered By: Gustabo Pérez on 11-22-2024 Lymphocytes/100 WBC Auto (Unsp spec) 16.1 % Low 19-41 [facility] BUN/creatinine ratioOrdered By: Gustabo Pérez on 11-22-2024 Urea nitrogen/Creatinine [Mass ratio] 15.6 mg/mg 10- [facility] Basic Metabolic Profile (BMP )on 11-22-2024 BUN/CRE 15.6 RATIO Normal - [facility] Comment on above: Performed By: #### L 503.7505, L100.0100, L500.2500 ####[facility] [address] [place], [address] Calcium [Mass/Vol] 9.1 mg/dL Normal 7.6-11.0 [facility] Comment on above: Performed By: #### L 503.7505, L100.0100, L500.2500 ####[facility] [address] [place], [address] Chloride [Moles/Vol] 102 mmol/L Normal 98-108 [facility] Comment on above: Performed By: #### L 503.7505, L100.0100, L500.2500 ####[facility] [address] [place], [address] CO2 [Moles/Vol] 21.6 mmol/L Normal 21.0-32.0 [facility] Comment on above: Performed By: #### L 503.7505, L100.0100, L500.2500 ####[facility] [address] [place], [address] Creatinine [Mass/Vol] 2.51 mg/dL High 0.70-1.20 [facility] Comment on above: Performed By: #### L 503.7505, L100.0100, L500.2500 ####[facility] [address] [place], [address] GAP 15 Normal 5-15 [facility] Comment on above: Performed By: #### L 503.7505, L100.0100, L500.2500 ####[facility] [address] [place], [address] GFR/1.73 sq M.predicted among non-blacks MDRD (S/P/Bld) [Vol rate/Area] 25 mL/min/{1.73_m2} Low >60 [facility] Comment on above: Result Comment: mL/m in/1.73m2 CKD-EPI Creatinine Equation (2020) Performed By: #### L 503.7505, L100.0100, L500.2500 ####[facility] [address] [place], [address] Glucose [Mass/Vol] 262 mg/dL High 70-99 [facility] Comment on above: Performed By: #### L 503.7505, L100.0100, L500.2500 ####[facility] [address] [place], [address] Potassium [Moles/Vol] 4.8 mmol/L Normal 3.3-5.1 [facility] Comment on above: Performed By: #### L 503.7505, L100.0100, L500.2500 ####[facility] [address] [place], [address] Sodium [Moles/Vol] 139 mmol/L Normal 133-145 [facility] Comment on above: Performed By: #### L 503.7505, L100.0100, L500.2500 ####[facility] [address] [place], [address] Urea nitrogen [Mass/Vol] 39 mg/dL High 4-19 [facility] Comment on above: Performed By: #### L 503.7505, L100.0100, L500.2500 ####[facility] [address] [place], [address] Basophil percentageOrdered B y: Gustabo Beto on 11-22-2024 Basophils/100 WBC (Bld) 0.4 % 0-1 [facility] CBC W/Diff, Automatedon 11-01 Absolute Lymph 1.37 X10 3/uL Normal 0.83-4.51 [facility] Comment on above: Performed By: #### L 503.7505, L100.0100, L500.2500 ####[facility] [address] [place], [address] Absolute Neut 6.2 X10 3/uL Normal 2.0-7.7 [facility] Comment on above: Performed By: #### L 503.7505, L100.0100, L500.2500 ####[facility] [address] [place], [address] Basophils/100 WBC (Bld) 0.4 % Normal 0-1 [facility] Comment on above: Performed By: #### L 503.7505, L100.0100, L500.2500 ####[facility] [address] [place], [address] Eosinophils/100 WBC (Bld) 1.5 % Normal 0-5 [facility] Comment on above: Performed By: #### L 503.7505, L100.0100, L500.2500 ####[facility] [address] [place], [address] Erythrocyte distribution width (RBC) [Ratio] 13.8 % Normal 11.6-14.6 [facility] Comment on above: Performed By: #### L 503.7505, L100.0100, L500.2500 ####[facility] [address] [place], [address] Hematocrit (Bld) [Volume fraction] 36.5 % Low 40-54 [facility] Comment on above: Performed By: #### L 503.7505, L100.0100, L500.2500 ####[facility] [address] [place], [address] Hemoglobin (Bld) [Mass/Vol] 11.8 g/dL Low 13.0-16.5 [facility] Comment on above: Performed By: #### L 503.7505, L100.0100, L500.2500 ####[facility] [address] [place], [address] IG% 0.500 Normal 0.0-0.9 [facility] Comment on above: Result Comment: IG% - Immature Granulocytes (promyelocytes, myelocytes andmetamyelocytes) > 1% indicates that a LEFT SHIFT is Present. Performed By: #### L 503.7505, L100.0100, L500.2500 ####[facility] [address] [place], [address] Lymphocytes/100 WBC (Bld) 16.1 % Low 19-41 [facility] Comment on above: Performed By: #### L 503.7505, L100.0100, L500.2500 ####[facility] [address] [place], [address] MCH (RBC) [Entitic mass] 29.6 pg Normal 27.0-32.0 [facility] Comment on above: Performed By: #### L 503.7505, L100.0100, L500.2500 ####[facility] [address] [place], [address] MCHC (RBC) [Mass/Vol] 32.3 g/dL Normal 32-36 [facility] Comment on above: Performed By: #### L 503.7505, L100.0100, L500.2500 ####[facility] [address] [place], [address] MCV (RBC) [Entitic vol] 91.7 fL Normal 80-94 [facility] Comment on above: Performed By: #### L 503.7505, L100.0100, L500.2500 ####[facility] [address] [place], [address] Monocytes/100 WBC (Bld) 9.0 % Normal 0-10 [facility] Comment on above: Performed By: #### L 503.7505, L100.0100, L500.2500 ####[facility] [address] [place], [address] Neutrophils/100 WBC (Bld) 72.5 % High 47-70 [facility] Comment on above: Performed By: #### L 503.7505, L100.0100, L500.2500 ####[facility] [address] [place], [address] Nucleated RBC (Bld) [#/Vol] 0 10*3/uL Normal 0-5 [facility] Comment on above: Performed By: #### L 503.7505, L100.0100, L500.2500 ####[facility] [address] [place], [address] Platelet mean volume (Bld) [Entitic vol] 13.0 fL High 6.2-12.0 [facility] Comment on above: Performed By: #### L 503.7505, L100.0100, L500.2500 ####[facility] [address] [place], [address] Platelets (Bld) [#/Vol] 148 10*3/uL Low 150-450 [facility] Comment on above: Performed By: #### L 503.7505, L100.0100, L500.2500 ####[facility] [address] [place], [address] RBC (Bld) [#/Vol] 3.98 10*6/uL Low 4.6-6.2 [facility] Comment on above: Performed By: #### L 503.7505, L100.0100, L500.2500 ####[facility] [address] [place], [address] RDW SD 47.0 fl High 35.1-43.9 [facility] Comment on above: Performed By: #### L 503.7505, L100.0100, L500.2500 ####[facility] [address] [place], [address] WBC (Bld) [#/Vol] 8.5 10*3/uL Normal 4.4-11.0 [facility] Comment on above: Performed By: #### L 503.7505, L100.0100, L500.2500 ####[facility] [address] [place], [address] Carbon dioxide, total [Moles /volume] in Central venous bloodOrdered By: Gustabo Pérez on 11-22-2024 CO2 [Moles/Vol] 21.6 mmol/L 21.0-32.0 [facility] Cardiology Visit Reporton Cardiology Visit Report Normal [facility] Chest PA and Lateralon 11-22 Chest PA and Lateral Normal [facility] Chloride assayOrdered By: Lydia Pérez on 11-22-2024 Chloride [Moles/Vol] 102 mmol/L 98-108 [facility] Eosinophil percentageOrdered By: Gustabo Pérez on 11-22-2024 Eosinophils/100 WBC (Bld) 1.5 % 0-5 [facility] Erythrocyte distribution wid th ratioOrdered By: Gustabo Pérez on 11-22-2024 Erythrocyte distribution width (RBC) [Ratio] 13.8 % 11.6-14.6 [facility] Erythrocyte distribution wid th standard deviationOrdered By: Gustabo Pérez on 11-22-2024 Erythrocyte distribution width (RBC) [Ratio] 47.0 fl High 35.1-43.9 [facility] Glomerular filtration rate ( GFR) estimation/1.73 sq m using serum, plasma, or whole bOrdered By: Gustabo Pérez on 11-22-2024 GFR/1.73 sq M.predicted among non-blacks MDRD (S/P/Bld) [Vol rate/Area] 25 mL/min/{1.73_m2} Low >60 [facility] Hematocrit Auto (Bld) [Volum e fraction]Ordered By: Gustabo Pérez on 11-22-2024 Hematocrit (Bld) [Volume fraction] 36.5 % Low 40-54 [facility] Hemoglobin measurementOrdere d By: Gustabo Pérez on 11-22-2024 Hemoglobin (Bld) [Mass/Vol] 11.8 g/dL Low 13.0-16.5 [facility] Immature granulocytes/100 WB C Auto (Bld)Ordered By: Gustabo Pérez on 11-22-2024 Immature granulocytes/100 WBC (Bld) 0.500 % 0.0-0.9 [facility] L503.7505on 11-22-2024 Natriuretic peptide B (Bld) [Mass/Vol] 188 pg/mL Normal <=1800 [facility] Comment on above: Result Comment: Hear t Failure Unlikely: < 300 pg/mLHeart Failure Likely< 50 Years: > 450 pg/mL50-75 Years: > 900 pg/mL>75 Years: > 1800 pg/mL Performed By: #### L 503.7505, L100.0100, L500.2500 ####[facility] [address] [place], [address] MCV (mean corpuscular volume ) determinationOrdered By: Gustabo Pérez on 11-22-2024 MCV (RBC) [Entitic vol] 91.7 fL 80-94 [facility] Mean corpuscular hemoglobin (MCH) determinationOrdered By: Gustabo Pérez on 11-22-2024 MCH (RBC) [Entitic mass] 29.6 pg 27.0-32.0 [facility] Monocyte percentageOrdered B y: Gustabo Pérez on 11-22-2024 Monocytes/100 WBC (Bld) 9.0 % 0-10 [facility] Natriuretic peptide.B prohor efrem N-Terminal [Mass/volume] in Serum or PlasmaOrdered By: Gustabo Pérez on 11-22-2024 Natriuretic peptide.B prohormone N-Terminal [Mass/Vol] 188 pg/mL <1800 [facility] Neutrophil percentageOrdered By: Gustabo Pérez on 11-22-2024 Neutrophils/100 WBC (Bld) 72.5 % High 47-70 [facility] Platelet countOrdered By: Lydia Pérez on 11-22-2024 Platelets (Bld) [#/Vol] 148 10*3/uL Low 150-450 [facility] Potassium measurement (mass/ volume)Ordered By: Gustabo Pérez on 11-22-2024 Potassium (Unsp spec) [Mass/Vol] 4.8 mmol/L 3.3-5.1 [facility] RBC Auto (Bld) [#/Vol]Ordere d By: Gustabo Pérez on 11-22-2024 RBC (Bld) [#/Vol] 3.98 10*6/uL Low 4.6-6.2 [facility] Serum creatinine measurement (mass/volume)Ordered By: Gustabo Pérez on 11-22-2024 Creatinine [Mass/Vol] 2.51 mg/dL High 0.70-1.20 [facility] Serum glucose measurement (m ass/volume)Ordered By: Gustabo Pérez on 11-22-2024 Glucose [Mass/Vol] 262 mg/dL High 70-99 [facility] Serum or plasma calcium francine urement (mass/volume)Ordered By: Gustabo Pérez on 11-22-2024 Calcium [Mass/Vol] 9.1 mg/dL 7.6-11.0 [facility] Serum or plasma urea nitroge n measurement (mass/volume)Ordered By: Gustabo Pérez on 11-22-2024 Urea nitrogen [Mass/Vol] 39 mg/dL High 4-19 [facility] Sodium levelOrdered By: Gustabo Pérez on 11-22-2024 Sodium [Moles/Vol] 139 mmol/L 133-145 [facility] White blood cell (WBC) count Ordered By: Gustabo Pérez on 11-22-2024 WBC (Bld) [#/Vol] 8.5 10*3/uL 4.4-11.0 [facility] Shoulder min 2 Viewson 11-20 Shoulder min 2 Views Normal [facility] Cardiovascular stress test r eportOrdered By: Jose Hay on 11-13-2024 Study report [facility] [address] [place] [address] MR#: [id number] Acct: [id number] Name: GERRY RICO Rep #: [id number] : 1945 79 From: Jose Hay MD Primary Care: Dr. 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 This note was generated with [employer] software. It may contain incorrectwords, spelling, and punctuation that were not noted in checking the note beforesigning. 11/13/241538 Date _ Jose Hay MD CC: YRN Pérez; Dr. Marycarmen Rodriguez, DO ~ Date Dictated: 11/13/241536 Date Transcribed: 11/13/241536 Psychologist Chief: HARSH Alvarez [facility] Work Phone: Stress Reporton 11-13-2024 Stress Report Normal [facility] Echo Complete W/ Contraston 11-10-2024 Echo Complete W/ Contrast Normal [facility] Echocardiogram study reportO rdered By: Lance Rodriguez on 11-10-2024 Study report [facility] [address] [place] [address] Echo Complete W/ Contrast 11/10/24 0920 MR#: [id number] Acct: [id number] Name: GERRY RICO Rep #:[id number] : 1945 79 From: Lance Hooker Attending Dr: YRN Herr Sta tus: REG CLI Ordering Dr: Maren Olivas Driss e: 11/10/24 Location: [facility] Sex: M C Admitted: Reason For Study [...] Date Dictated: 11/10/24919 Date Transcribed: 11/10/24 121 Psychologist Chief: Signed [facility] Absolute lymphocyte countOrd ered By: Marycarmen Rodriguez on 11-09-2024 Lymphocytes Auto (Unsp spec) [#/Vol] 1.23 10*3/uL 0.83-4.51 [facility] Absolute neutrophil countOrd ered By: Marycarmen ChiuMarly on 11-09-2024 Neutrophils (Bld) [#/Vol] 4.1 10*3/uL 2.0-7.7 [facility] Anion gap in Serum or Plasma Ordered By: Marycarmen Rodriguez on 11-09-2024 Anion gap [Moles/Vol] 14 mmol/L 09-14 [facility] Automated lymphocyte count a s percentage of total leukocytesOrdered By: Marycarmen Rodriguez on 11-09-2024 Lymphocytes/100 WBC Auto (Unsp spec) 19.9 % [facility] BUN/creatinine ratioOrdered By: Marycarmen Rodriguez on 11-09-2024 Urea nitrogen/Creatinine [Mass ratio] 19.7 mg/mg 02-19 [facility] Basic Metabolic Profile (BMP )on 11-09-2024 BUN/CRE 19.7 RATIO Normal 02-19 [facility] Comment on above: Performed By: #### L 503.7505, L500.2500, L100.0100 ####[facility] [address] [place], [address] Calcium [Mass/Vol] 9.3 mg/dL Normal 7.6-11.0 [facility] Comment on above: Performed By: #### L 503.7505, L500.2500, L100.0100 ####[facility] [address] [place], [address] Chloride [Moles/Vol] 102 mmol/L Normal 98-108 [facility] Comment on above: Performed By: #### L 503.7505, L500.2500, L100.0100 ####[facility] [address] [place], [address] CO2 [Moles/Vol] 22.5 mmol/L Normal 21.0-32.0 [facility] Comment on above: Performed By: #### L 503.7505, L500.2500, L100.0100 ####[facility] [address] [place], [address] Creatinine [Mass/Vol] 2.49 mg/dL High 0.70-1.20 [facility] Comment on above: Performed By: #### L 503.7505, L500.2500, L100.0100 ####[facility] [address] [place], [address] GAP 14 Normal 5-15 [facility] Comment on above: Performed By: #### L 503.7505, L500.2500, L100.0100 ####[facility] [address] [place], [address] GFR/1.73 sq M.predicted among non-blacks MDRD (S/P/Bld) [Vol rate/Area] 26 mL/min/{1.73_m2} Low >60 [facility] Comment on above: Result Comment: mL/m in/1.73m2 CKD-EPI Creatinine Equation (2020) Performed By: #### L 503.7505, L500.2500, L100.0100 ####[facility] [address] [place], [address] Glucose [Mass/Vol] 169 mg/dL High 70-99 [facility] Comment on above: Performed By: #### L 503.7505, L500.2500, L100.0100 ####[facility] [address] [place], [address] Potassium [Moles/Vol] 4.6 mmol/L Normal 3.3-5.1 [facility] Comment on above: Performed By: #### L 503.7505, L500.2500, L100.0100 ####[facility] [address] [place], [address] Sodium [Moles/Vol] 139 mmol/L Normal 133-145 [facility] Comment on above: Performed By: #### L 503.7505, L500.2500, L100.0100 ####[facility] [address] [place], [address] Urea nitrogen [Mass/Vol] 49 mg/dL High 4-19 [facility] Comment on above: Performed By: #### L 503.7505, L500.2500, L100.0100 ####[facility] [address] [place], [address] Basophil percentageOrdered B y: Marycarmen Rodriguez on 11-09-2024 Basophils/100 WBC (Bld) 0.3 % 0-1 [facility] CBC W/Diff, Automatedon 10-31 0-2024 Absolute Lymph 1.23 X10 3/uL Normal 0.83-4.51 [facility] Comment on above: Performed By: #### L 503.7505, L500.2500, L100.0100 ####[facility] [address] [place], [address] Absolute Neut 4.1 X10 3/uL Normal 2.0-7.7 [facility] Comment on above: Performed By: #### L 503.7505, L500.2500, L100.0100 ####[facility] [address] [place], [address] Basophils/100 WBC (Bld) 0.3 % Normal 0-1 [facility] Comment on above: Performed By: #### L 503.7505, L500.2500, L100.0100 ####[facility] [address] [place], [address] Eosinophils/100 WBC (Bld) 2.4 % Normal 0-5 [facility] Comment on above: Performed By: #### L 503.7505, L500.2500, L100.0100 ####[facility] [address] [place], [address] Erythrocyte distribution width (RBC) [Ratio] 14.1 % Normal 11.6-14.6 [facility] Comment on above: Performed By: #### L 503.7505, L500.2500, L100.0100 ####[facility] [address] [place], [address] Hematocrit (Bld) [Volume fraction] 38.2 % Low 40-54 [facility] Comment on above: Performed By: #### L 503.7505, L500.2500, L100.0100 ####[facility] [address] [place], [address] Hemoglobin (Bld) [Mass/Vol] 12.2 g/dL Low 13.0-16.5 [facility] Comment on above: Performed By: #### L 503.7505, L500.2500, L100.0100 ####[facility] [address] [place], [address] IG% 0.500 Normal 0.0-0.9 [facility] Comment on above: Result Comment: IG% - Immature Granulocytes (promyelocytes, myelocytes andmetamyelocytes) > 1% indicates that a LEFT SHIFT is Present. Performed By: #### L 503.7505, L500.2500, L100.0100 ####[facility] [address] [place], [address] Lymphocytes/100 WBC (Bld) 19.9 % Normal 19-41 [facility] Comment on above: Performed By: #### L 503.7505, L500.2500, L100.0100 ####[facility] [address] [place], [address] MCH (RBC) [Entitic mass] 29.6 pg Normal 27.0-32.0 [facility] Comment on above: Performed By: #### L 503.7505, L500.2500, L100.0100 ####[facility] [address] [place], [address] MCHC (RBC) [Mass/Vol] 31.9 g/dL Low 32-36 [facility] Comment on above: Performed By: #### L 503.7505, L500.2500, L100.0100 ####[facility] [address] [place], [address] MCV (RBC) [Entitic vol] 92.7 fL Normal 80-94 [facility] Comment on above: Performed By: #### L 503.7505, L500.2500, L100.0100 ####[facility] [address] [place], [address] Monocytes/100 WBC (Bld) 10.4 % High 0-10 [facility] Comment on above: Performed By: #### L 503.7505, L500.2500, L100.0100 ####[facility] [address] [place], [address] Neutrophils/100 WBC (Bld) 66.5 % Normal 47-70 [facility] Comment on above: Performed By: #### L 503.7505, L500.2500, L100.0100 ####[facility] [address] [place], [address] Nucleated RBC (Bld) [#/Vol] 0 10*3/uL Normal 0-5 [facility] Comment on above: Performed By: #### L 503.7505, L500.2500, L100.0100 ####[facility] [address] [place], [address] Platelet mean volume (Bld) [Entitic vol] 12.7 fL High 6.2-12.0 [facility] Comment on above: Performed By: #### L 503.7505, L500.2500, L100.0100 ####[facility] [address] [place], [address] Platelets (Bld) [#/Vol] 120 10*3/uL Low 150-450 [facility] Comment on above: Performed By: #### L 503.7505, L500.2500, L100.0100 ####[facility] [address] [place], [address] RBC (Bld) [#/Vol] 4.12 10*6/uL Low 4.6-6.2 [facility] Comment on above: Performed By: #### L 503.7505, L500.2500, L100.0100 ####[facility] [address] [place], [address] RDW SD 47.8 fl High 35.1-43.9 [facility] Comment on above: Performed By: #### L 503.7505, L500.2500, L100.0100 ####[facility] [address] [place], [address] WBC (Bld) [#/Vol] 6.2 10*3/uL Normal 4.4-11.0 [facility] Comment on above: Performed By: #### L 503.7505, L500.2500, L100.0100 ####[facility] [address] [place], [address] Carbon dioxide, total [Moles /volume] in Central venous bloodOrdered By: Marycarmen Rodriguez on 11-09-2024 CO2 [Moles/Vol] 22.5 mmol/L 21.0-32.0 [facility] Chloride assayOrdered By: Ap Rodriguez on 11-09-2024 Chloride [Moles/Vol] 102 mmol/L 98-108 [facility] Eosinophil percentageOrdered By: Marycarmen Rodriguez on 11-09-2024 Eosinophils/100 WBC (Bld) 2.4 % 0-5 [facility] Erythrocyte distribution wid th ratioOrdered By: Marycarmen Rodriguez on 11-09-2024 Erythrocyte distribution width (RBC) [Ratio] 14.1 % 11.6-14.6 [facility] Erythrocyte distribution wid th standard deviationOrdered By: Marycarmen Rodriguez on 11-09-2024 Erythrocyte distribution width (RBC) [Ratio] 47.8 fl High 35.1-43.9 [facility] Glomerular filtration rate ( GFR) estimation/1.73 sq m using serum, plasma, or whole bOrdered By: Marycarmen Rodriguez on 11-09-2024 GFR/1.73 sq M.predicted among non-blacks MDRD (S/P/Bld) [Vol rate/Area] 26 mL/min/{1.73_m2} Low >60 [facility] Comment on above: mL/min/1.73m2 CKD-EP I Creatinine Equation (2020) Hematocrit Auto (Bld) [Volum e fraction]Ordered By: Marycarmen Rodriguez on 11-09-2024 Hematocrit (Bld) [Volume fraction] 38.2 % Low 40-54 [facility] Hemoglobin measurementOrdere d By: Marycarmen Rodriguez on 11-09-2024 Hemoglobin (Bld) [Mass/Vol] 12.2 g/dL Low 13.0-16.5 [facility] Immature granulocytes/100 WB C Auto (Bld)Ordered By: Marycarmen Rodriguez on 11-09-2024 Immature granulocytes/100 WBC (Bld) 0.500 % 0.0-0.9 [facility] Comment on above: IG% - Immature Granu locytes (promyelocytes, myelocytes and metamyelocytes) > 1% indicates that a LEFT SHIFT is Present. L503.7505on 11-09-2024 Natriuretic peptide B (Bld) [Mass/Vol] 91 pg/mL Normal <=1800 [facility] Comment on above: Result Comment: Hear t Failure Unlikely: < 300 pg/mLHeart Failure Likely< 50 Years: > 450 pg/mL50-75 Years: > 900 pg/mL>75 Years: > 1800 pg/mL Performed By: #### L 503.7505, L500.2500, L100.0100 ####[facility] [address] [place], [place], [address] MCV (mean corpuscular volume ) determinationOrdered By: Marycarmen Rodriguez on 11-09-2024 MCV (RBC) [Entitic vol] 92.7 fL 80-94 [facility] Mean corpuscular hemoglobin (MCH) determinationOrdered By: Marycarmen Rodriguez on 11-09-2024 MCH (RBC) [Entitic mass] 29.6 pg 27.0-32.0 [facility] Mean corpuscular hemoglobin concentration (MCHC) determinationOrdered By: Marycarmen Rodriguez on 11-09-2024 MCHC (RBC) [Mass/Vol] 31.9 g/dL Low 32-36 [facility] Mean platelet volume determi nationOrdered By: Marycarmen Rodriguez on 11-09-2024 Platelet mean volume (Bld) [Entitic vol] 12.7 fL High 6.2-12.0 [facility] Monocyte percentageOrdered B y: Marycarmen Rodriguez on 11-09-2024 Monocytes/100 WBC (Bld) 10.4 % High 0-10 [facility] Natriuretic peptide.B prohor efrem N-Terminal [Mass/volume] in Serum or PlasmaOrdered By: Marycarmen Rodriguez on 11-09-2024 Natriuretic peptide.B prohormone N-Terminal [Mass/Vol] 91 pg/mL <1800 [facility] Comment on above: Heart Failure Unlike ly: < 300 pg/mLHeart Failure Likely< 50 Years: > 450 pg/mL50-75 Years: > 900 pg/mL>75 Years: > 1800 pg/mL Neutrophil percentageOrdered By: Marycarmen Rodriguez on 11-09-2024 Neutrophils/100 WBC (Bld) 66.5 % 47-70 [facility] Nucleated red blood cell per centageOrdered By: Marycarmen Rodriguez on 11-09-2024 Nucleated RBC/100 WBC (Bld) [Ratio] 0 % 0-5 [facility] Platelet countOrdered By: Ap Rodriguez on 11-09-2024 Platelets (Bld) [#/Vol] 120 10*3/uL Low 150-450 [facility] Potassium measurement (mass/ volume)Ordered By: Marycarmen Rodriguez on 11-09-2024 Potassium (Unsp spec) [Mass/Vol] 4.6 mmol/L 3.3-5.1 [facility] RBC Auto (Bld) [#/Vol]Ordere d By: Marycarmen Rodriguez on 11-09-2024 RBC (Bld) [#/Vol] 4.12 10*6/uL Low 4.6-6.2 [facility] Serum creatinine measurement (mass/volume)Ordered By: Marycarmen Rodriguez on 11-09-2024 Creatinine [Mass/Vol] 2.49 mg/dL High 0.70-1.20 [facility] Serum glucose measurement (m ass/volume)Ordered By: Marycarmen Rodriguez on 11-09-2024 Glucose [Mass/Vol] 169 mg/dL High 70-99 [facility] Serum or plasma calcium francine urement (mass/volume)Ordered By: Marycarmen Rodriguez on 11-09-2024 Calcium [Mass/Vol] 9.3 mg/dL 7.6-11.0 [facility] Serum or plasma urea nitroge n measurement (mass/volume)Ordered By: Marycarmen Rodriguez on 11-09-2024 Urea nitrogen [Mass/Vol] 49 mg/dL High 4-19 [facility] Sodium levelOrdered By: Marycarmen Rodriguez on 11-09-2024 Sodium [Moles/Vol] 139 mmol/L 133-145 [facility] White blood cell (WBC) count Ordered By: Marycarmen Rodriguez on 11-09-2024 WBC (Bld) [#/Vol] 6.2 10*3/uL 4.4-11.0 [facility] Pulmonary Visit Reporton Pulmonary Visit Report Normal [facility] Cardiology Visit Reporton Cardiology Visit Report Normal [facility] L3410.9992on 10-23-2024 [facility] Misc. COMMENT Normal . [facility] Comment on above: Order Comment: [id number] 0MED TOX Result Comment: Test Ordered: [id number] L13-Ntopci+ZH0Kinhweqjwsdb Screen, Urine Negative ng/mL UI Reference Range: Pozpfa=679Pqtwlqkpgcp test includes Amphetamine and Methamphetamine.Barbiturates Negative ng/mL UI Reference Range: Tryecj=249Gjxrpcepkgljygc Negative ng/mL UI Reference Range: Qrryrp=803Kgodcng (Metab.), Urine Negative ng/mL UI Reference Range: Hpfhks=695Obxgfuo Note: ng/mL UI See Final Results Reference Range: Plmfog=566Utkfkx test includes Codeine, Morphine, Hydromorphone, Hydrocodone.Opiates Positive [A ] UI Reference Range: Verjsw=525Txxbvz test includes Codeine, Morphine, Hydromorphone, Hydrocodone.Codeine Negative UI Reference Range: Jvswiv=696Clvnkvwj Negative UI Reference Range: Pguswz=442Ivdlbjngcrinm Negative UI Reference Range: Qylcyv=750Acfhdtxdkhm Positive [A ] UI Reference Range: .Hydrocodone Conf, MS, UR 349 ng/mL UI Reference Range: Ysmnqt=3535-Zybcqcgshfspec, Urine Negative ng/mL UI Reference Range: Cutoff=10Oxycodone/Oxymorphone, Urine Negative ng/mL UI Reference Range: Tzirog=315Fwzv includes Oxycodone and OxymorphonePCP, Urine Negative ng/mL UI Reference Range: Cutoff=25Methadone Screen, Urine Negative ng/mL UI Reference Range: Dssvmd=786Imyuellxiivp, Urine Negative ng/mL UI Reference Range: Ynfcje=249Lqqdrehc, Urine Negative ng/mL UI Reference Range: Cutoff=2.0Test includes Fentanyl and NorfentanylThis test was developed and its performance characteristicsdetermined by [employer]. It has not been cleared orapproved by the Food and Drug Administration.Tramadol Negative ng/mL UI Reference Range: Tvhyai=585Rcujnciqjgeun, Urine Negative ng/mL UI Reference Range: Cutoff=10Creatinine, Urine 36.9 mg/dL UI Reference Range: 20.0-300.0pH, Urine 6.1 UI Reference Range: 4.5-8.9Performed at: - [facility] [id number] [place], [place] [id number] Director: Erik Wallis PhD, Phone: [phone] at: [facility] [address] [id number] Director: Bharath Hawthorne PhD, Phone: [phone] Performed By: #### L 3410.9992, L505.5000 ####[facility] [address] [place], [address] Absolute lymphocyte countOrd ered By: Gustabo Pérez on 10-18-2024 Lymphocytes Auto (Unsp spec) [#/Vol] 1.15 10*3/uL 0.83-4.51 [facility] Absolute neutrophil countOrd ered By: Gustabo Pérez on 10-18-2024 Neutrophils (Bld) [#/Vol] 4.6 10*3/uL 2.0-7.7 [facility] Amphetamine detection with 1 000 ng/mL as cutoffOrdered By: Brooks Carpenter on 10-18-2024 Amphetamines Screen method >1000 ng/mL Ql (U) Negative < 200 ng/mL [facility] [facility] Anion gap in Serum or Plasma Ordered By: Gustabo Pérez on 10-18-2024 Anion gap [Moles/Vol] 12 mmol/L 5-15 [facility] Automated lymphocyte count a s percentage of total leukocytesOrdered By: Gustabo Pérez on 10-18-2024 Lymphocytes/100 WBC Auto (Unsp spec) 17.4 % Low 19-41 [facility] BUN/creatinine ratioOrdered By: Gustabo Pérez on 10-18-2024 Urea nitrogen/Creatinine [Mass ratio] 16.4 mg/mg 10- [facility] Basic Metabolic Profile (BMP )on 10-18-2024 BUN/CRE 16.4 RATIO Normal - [facility] Comment on above: Performed By: #### L 500.2500, L100.0100, L503.7505 ####[facility] [address] [place], [address] Calcium [Mass/Vol] 9.0 mg/dL Normal 7.6-11.0 [facility] Comment on above: Performed By: #### L 500.2500, L100.0100, L503.7505 ####[facility] [address] [place], [address] Chloride [Moles/Vol] 103 mmol/L Normal 98-108 [facility] Comment on above: Performed By: #### L 500.2500, L100.0100, L503.7505 ####[facility] [address] [place], [address] CO2 [Moles/Vol] 23.9 mmol/L Normal 21.0-32.0 [facility] Comment on above: Performed By: #### L 500.2500, L100.0100, L503.7505 ####[facility] [address] [place], [address] Creatinine [Mass/Vol] 2.00 mg/dL High 0.70-1.20 [facility] Comment on above: Performed By: #### L 500.2500, L100.0100, L503.7505 ####[facility] [address] [place], [address] GAP 12 Normal 5-15 [facility] Comment on above: Performed By: #### L 500.2500, L100.0100, L503.7505 ####[facility] [address] [place], [address] GFR/1.73 sq M.predicted among non-blacks MDRD (S/P/Bld) [Vol rate/Area] 33 mL/min/{1.73_m2} Low >60 [facility] Comment on above: Result Comment: mL/m in/1.73m2 CKD-EPI Creatinine Equation (2020) Performed By: #### L 500.2500, L100.0100, L503.7505 ####[facility] [address] [place], [address] Glucose [Mass/Vol] 125 mg/dL High 70-99 [facility] Comment on above: Performed By: #### L 500.2500, L100.0100, L503.7505 ####[facility] [address] [place], [address] Potassium [Moles/Vol] 4.8 mmol/L Normal 3.3-5.1 [facility] Comment on above: Performed By: #### L 500.2500, L100.0100, L503.7505 ####[facility] [address] [place], [address] Sodium [Moles/Vol] 139 mmol/L Normal 133-145 [facility] Comment on above: Performed By: #### L 500.2500, L100.0100, L503.7505 ####[facility] [address] [place], [address] Urea nitrogen [Mass/Vol] 33 mg/dL High 4-19 [facility] Comment on above: Performed By: #### L 500.2500, L100.0100, L503.7505 ####[facility] [address] [place], [address] Basophil percentageOrdered B y: Gustabo Pérez on 10-18-2024 Basophils/100 WBC (Bld) 0.2 % 0-1 [facility] CBC W/Diff, Automatedon 10-01 Absolute Lymph 1.15 X10 3/uL Normal 0.83-4.51 [facility] Comment on above: Performed By: #### L 500.2500, L100.0100, L503.7505 ####[facility] [address] [place], [address] Absolute Neut 4.6 X10 3/uL Normal 2.0-7.7 [facility] Comment on above: Performed By: #### L 500.2500, L100.0100, L503.7505 ####[facility] [address] [place], [address] Basophils/100 WBC (Bld) 0.2 % Normal 0-1 [facility] Comment on above: Performed By: #### L 500.2500, L100.0100, L503.7505 ####[facility] [address] [place], [address] Eosinophils/100 WBC (Bld) 2.0 % Normal 0-5 [facility] Comment on above: Performed By: #### L 500.2500, L100.0100, L503.7505 ####[facility] [address] [place], [address] Erythrocyte distribution width (RBC) [Ratio] 14.3 % Normal 11.6-14.6 [facility] Comment on above: Performed By: #### L 500.2500, L100.0100, L503.7505 ####[facility] [address] [place], [address] Hematocrit (Bld) [Volume fraction] 36.4 % Low 40-54 [facility] Comment on above: Performed By: #### L 500.2500, L100.0100, L503.7505 ####[facility] [address] [place], [address] Hemoglobin (Bld) [Mass/Vol] 11.5 g/dL Low 13.0-16.5 [facility] Comment on above: Performed By: #### L 500.2500, L100.0100, L503.7505 ####[facility] [address] [place], [address] IG% 0.600 Normal 0.0-0.9 [facility] Comment on above: Result Comment: IG% - Immature Granulocytes (promyelocytes, myelocytes andmetamyelocytes) > 1% indicates that a LEFT SHIFT is Present. Performed By: #### L 500.2500, L100.0100, L503.7505 ####[facility] [address] [place], [address] Lymphocytes/100 WBC (Bld) 17.4 % Low 19-41 [facility] Comment on above: Performed By: #### L 500.2500, L100.0100, L503.7505 ####[facility] [address] [place], [address] MCH (RBC) [Entitic mass] 29.4 pg Normal 27.0-32.0 [facility] Comment on above: Performed By: #### L 500.2500, L100.0100, L503.7505 ####[facility] [address] [place], [address] MCHC (RBC) [Mass/Vol] 31.6 g/dL Low 32-36 [facility] Comment on above: Performed By: #### L 500.2500, L100.0100, L503.7505 ####[facility] [address] [place], [address] MCV (RBC) [Entitic vol] 93.1 fL Normal 80-94 [facility] Comment on above: Performed By: #### L 500.2500, L100.0100, L503.7505 ####[facility] [address] [place], [address] Monocytes/100 WBC (Bld) 10.4 % High 0-10 [facility] Comment on above: Performed By: #### L 500.2500, L100.0100, L503.7505 ####[facility] [address] [place], [address] Neutrophils/100 WBC (Bld) 69.4 % Normal 47-70 [facility] Comment on above: Performed By: #### L 500.2500, L100.0100, L503.7505 ####[facility] [address] [place], [address] Nucleated RBC (Bld) [#/Vol] 0 10*3/uL Normal 0-5 [facility] Comment on above: Performed By: #### L 500.2500, L100.0100, L503.7505 ####[facility] [address] [place], [address] Platelet mean volume (Bld) [Entitic vol] 12.9 fL High 6.2-12.0 [facility] Comment on above: Performed By: #### L 500.2500, L100.0100, L503.7505 ####[facility] [address] [place], [address] Platelets (Bld) [#/Vol] 152 10*3/uL Normal 150-450 [facility] Comment on above: Performed By: #### L 500.2500, L100.0100, L503.7505 ####[facility] [address] [place], [address] RBC (Bld) [#/Vol] 3.91 10*6/uL Low 4.6-6.2 [facility] Comment on above: Performed By: #### L 500.2500, L100.0100, L503.7505 ####[facility] [address] [place], [address] RDW SD 48.5 fl High 35.1-43.9 [facility] Comment on above: Performed By: #### L 500.2500, L100.0100, L503.7505 ####[facility] [address] [place], [address] WBC (Bld) [#/Vol] 6.6 10*3/uL Normal 4.4-11.0 [facility] Comment on above: Performed By: #### L 500.2500, L100.0100, L503.7505 ####[facility] [address] [place], [address] Carbon dioxide, total [Moles /volume] in Central venous bloodOrdered By: Gustabo Pérez on 10-18-2024 CO2 [Moles/Vol] 23.9 mmol/L 21.0-32.0 [facility] Chloride assayOrdered By: Lydia Pérez on 10-18-2024 Chloride [Moles/Vol] 103 mmol/L 98-108 [facility] Eosinophil percentageOrdered By: Gustabo Pérez on 10-18-2024 Eosinophils/100 WBC (Bld) 2.0 % 0-5 [facility] Erythrocyte distribution wid th ratioOrdered By: Gustabo Pérez on 10-18-2024 Erythrocyte distribution width (RBC) [Ratio] 14.3 % 11.6-14.6 [facility] Erythrocyte distribution wid th standard deviationOrdered By: Gustabo Pérez on 10-18-2024 Erythrocyte distribution width (RBC) [Ratio] 48.5 fl High 35.1-43.9 [facility] Glomerular filtration rate ( GFR) estimation/1.73 sq m using serum, plasma, or whole bOrdered By: Gustabo Pérez on 10-18-2024 GFR/1.73 sq M.predicted among non-blacks MDRD (S/P/Bld) [Vol rate/Area] 33 mL/min/{1.73_m2} Low >60 [facility] Comment on above: mL/min/1.73m2 CKD-EP I Creatinine Equation (2020) Hematocrit Auto (Bld) [Volum e fraction]Ordered By: Gustabo Pérez on 10-18-2024 Hematocrit (Bld) [Volume fraction] 36.4 % Low 40-54 [facility] Hemoglobin measurementOrdere d By: Gustabo Pérez on 10-18-2024 Hemoglobin (Bld) [Mass/Vol] 11.5 g/dL Low 13.0-16.5 [facility] Immature granulocytes/100 WB C Auto (Bld)Ordered By: Gustabo Pérez on 10-18-2024 Immature granulocytes/100 WBC (Bld) 0.600 % 0.0-0.9 [facility] Comment on above: IG% - Immature Granu locytes (promyelocytes, myelocytes and metamyelocytes) > 1% indicates that a LEFT SHIFT is Present. L503.7505on 10-18-2024 Natriuretic peptide B (Bld) [Mass/Vol] 200 pg/mL Normal <=1800 [facility] Comment on above: Result Comment: Hear t Failure Unlikely: < 300 pg/mLHeart Failure Likely< 50 Years: > 450 pg/mL50-75 Years: > 900 pg/mL>75 Years: > 1800 pg/mL Performed By: #### L 500.2500, L100.0100, L503.7505 ####[facility] [address] [place], [address] MCV (mean corpuscular volume ) determinationOrdered By: Gustabo Pérez on 10-18-2024 MCV (RBC) [Entitic vol] 93.1 fL 80-94 [facility] Mean corpuscular hemoglobin (MCH) determinationOrdered By: Gustabo Pérez on 10-18-2024 MCH (RBC) [Entitic mass] 29.4 pg 27.0-32.0 [facility] Mean corpuscular hemoglobin concentration (MCHC) determinationOrdered By: Gustabo Pérez on 10-18-2024 MCHC (RBC) [Mass/Vol] 31.6 g/dL Low 32-36 [facility] Mean platelet volume determi nationOrdered By: Gustabo Pérez on 10-18-2024 Platelet mean volume (Bld) [Entitic vol] 12.9 fL High 6.2-12.0 [facility] Monocyte percentageOrdered B y: Gustabo Pérez on 10-18-2024 Monocytes/100 WBC (Bld) 10.4 % High 0-10 [facility] Natriuretic peptide.B prohor efrem N-Terminal [Mass/volume] in Serum or PlasmaOrdered By: Gustabo Pérez on 10-18-2024 Natriuretic peptide.B prohormone N-Terminal [Mass/Vol] 200 pg/mL <1800 [facility] Comment on above: Heart Failure Unlike ly: < 300 pg/mLHeart Failure Likely< 50 Years: > 450 pg/mL50-75 Years: > 900 pg/mL>75 Years: > 1800 pg/mL Neutrophil percentageOrdered By: Gustabo Pérez on 10-18-2024 Neutrophils/100 WBC (Bld) 69.4 % 47-70 [facility] No Panel InformationOrdered By: Brooks Carpenter on 10-18-2024 Urine Buprenorphine Qualitative Negative < 200 ng/mL [facility] Urine Oxycodone Screen Negative < 100 ng/mL [facility] Negative < 200 ng/mL [facility] Nucleated red blood cell per centageOrdered By: Gustabo Pérez on 10-18-2024 Nucleated RBC/100 WBC (Bld) [Ratio] 0 % 0-5 [facility] Platelet countOrdered By: Lydia Pérez on 10-18-2024 Platelets (Bld) [#/Vol] 152 10*3/uL 150-450 [facility] Potassium measurement (mass/ volume)Ordered By: Gustabo Pérez on 10-18-2024 Potassium (Unsp spec) [Mass/Vol] 4.8 mmol/L 3.3-5.1 [facility] Quantitative urine opiates m easurementOrdered By: Brooks Carpenter on 10-18-2024 Opiates Ql (U) Positive < 300 ng/mL [facility] Comment on above: If confirmation test ing is needed, a separate order will be required to send out testing to the reference laboratory. RBC Auto (Bld) [#/Vol]Ordere d By: Gustabo Pérez on 10-18-2024 RBC (Bld) [#/Vol] 3.91 10*6/uL Low 4.6-6.2 [facility] Screening urine fentanyl ritu surementOrdered By: Brooks Carpenter on 10-18-2024 fentaNYL Screen Ql (U) Negative [facility] Serum creatinine measurement (mass/volume)Ordered By: Gustabo Pérez on 10-18-2024 Creatinine [Mass/Vol] 2.00 mg/dL High 0.70-1.20 [facility] Serum glucose measurement (m ass/volume)Ordered By: Gustabo Pérez on 10-18-2024 Glucose [Mass/Vol] 125 mg/dL High 70-99 [facility] Serum or plasma calcium francine urement (mass/volume)Ordered By: Gustabo Pérez on 10-18-2024 Calcium [Mass/Vol] 9.0 mg/dL 7.6-11.0 [facility] Serum or plasma urea nitroge n measurement (mass/volume)Ordered By: Gustabo Pérez on 10-18-2024 Urea nitrogen [Mass/Vol] 33 mg/dL High 4-19 [facility] Sodium levelOrdered By: Gustabo Pérez on 10-18-2024 Sodium [Moles/Vol] 139 mmol/L 133-145 [facility] Urine Drug Screen (VISTA)on 10-18-2024 AMPHETAMINES Negative Normal <1000 ng/mL [facility] Comment on above: Order Comment: PAIN MANAGMENT Performed By: #### L 3410.9992, L505.5000 ####[facility] [address] [place], [address] BARBITIURATES Negative Normal < 200 ng/mL [facility] Comment on above: Order Comment: PAIN MANAGMENT Performed By: #### L 3410.9992, L505.5000 ####[facility] [address] [place], [address] BENZODIAZIPINE Negative Normal < 200 ng/mL [facility] Comment on above: Order Comment: PAIN MANAGMENT Performed By: #### L 3410.9992, L505.5000 ####[facility] [address] [facility] [address] BUP Ur Drug Scr Negative Normal < 200 ng/mL [facility] Comment on above: Order Comment: PAIN MANAGMENT Performed By: #### L 3410.9992, L505.5000 ####[facility] [address] [facility] [address] COCAINE Negative Normal < 300 ng/mL [facility] Comment on above: Order Comment: PAIN MANAGMENT Performed By: #### L 3410.9992, L505.5000 ####[facility] [address] [place] [id number] Fentanyl Negative Normal [facility] Comment on above: Order Comment: PAIN MANAGMENT Performed By: #### L 3410.9992, L505.5000 ####[facility] [address] [place] [id number] METHADONE Negative Normal < 300 ng/mL [facility] Comment on above: Order Comment: PAIN MANAGMENT Performed By: #### L 3410.9992, L505.5000 ####[facility] [address] [place] [id number] OPIATES Positive Normal < 300 ng/mL [facility] Comment on above: Order Comment: PAIN MANAGMENT Result Comment: If c onfirmation testing is needed, a separate order will berequired to send out testing to the reference laboratory. Performed By: #### L 3410.9992, L505.5000 ####[facility] [address] [place], [address] OXYCODONE Negative Normal < 100 ng/mL [facility] Comment on above: Order Comment: PAIN MANAGMENT Performed By: #### L 3410.9992, L505.5000 ####[facility] [address] [place], [address] PCP Negative Normal < 25 ng/mL [facility] Comment on above: Order Comment: PAIN MANAGMENT Performed By: #### L 3410.9992, L505.5000 ####[facility] [address] [place], [address] THC Negative Normal < 50 ng/mL [facility] Comment on above: Order Comment: PAIN MANAGMENT Performed By: #### L 3410.9992, L505.5000 ####[facility] [address] [place], [address] Urine benzodiazepine levelOr dered By: Brooks Carpenter on 10-18-2024 Benzodiazepines Ql (U) Negative < 200 ng/mL [facility] Urine cocaine levelOrdered B y: Brooks Carpenter on 10-18-2024 Cocaine Ql (U) Negative < 300 ng/mL [facility] Urine fuzwj-1-hvkqfwxqqvqouj abinol (THC) measurementOrdered By: Brooks Carpenter on 10-18-2024 Cannabinoids Screen Ql (U) Negative < 50 ng/mL [facility] Urine phencyclidine (PCP) de tectionOrdered By: Brooks Carpenter on 10-18-2024 Phencyclidine Ql (U) Negative < 25 ng/mL [facility] White blood cell (WBC) count Ordered By: Gustabo Pérez on 10-18-2024 WBC (Bld) [#/Vol] 6.6 10*3/uL 4.4-11.0 [facility] Absolute lymphocyte countOrd ered By: Marycarmen Rodriguez on 09-29-2024 Lymphocytes Auto (Unsp spec) [#/Vol] 1.35 10*3/uL 0.83-4.51 [facility] Absolute neutrophil countOrd ered By: Marycarmen Rodriguez on 09-29-2024 Neutrophils (Bld) [#/Vol] 9.2 10*3/uL High 2.0-7.7 [facility] Automated lymphocyte count a s percentage of total leukocytesOrdered By: Marycarmen Rodriguez on 09-29-2024 Lymphocytes/100 WBC Auto (Unsp spec) 10.9 % Low 19-41 [facility] Basophil percentageOrdered B y: Marycarmen Rodriguez on 09-29-2024 Basophils/100 WBC (Bld) 0.6 % 0-1 [facility] CBC W/Diff, Automatedon 09-02-2024 Absolute Lymph 1.35 X10 3/uL Normal 0.83-4.51 [facility] Comment on above: Performed By: #### L 503.6550, L503.0106, L100.0100, L503.6150 ####[facility] [address] [place], [address] Absolute Neut 9.2 X10 3/uL High 2.0-7.7 [facility] Comment on above: Performed By: #### L 503.6550, L503.0106, L100.0100, L503.6150 ####[facility] [address] [place], [address] Basophils/100 WBC (Bld) 0.6 % Normal 0-1 [facility] Comment on above: Performed By: #### L 503.6550, L503.0106, L100.0100, L503.6150 ####[facility] [address] [place], [address] Eosinophils/100 WBC (Bld) 0.7 % Normal 0-5 [facility] Comment on above: Performed By: #### L 503.6550, L503.0106, L100.0100, L503.6150 ####[facility] [address] [place], [address] Erythrocyte distribution width (RBC) [Ratio] 14.2 % Normal 11.6-14.6 [facility] Comment on above: Performed By: #### L 503.6550, L503.0106, L100.0100, L503.6150 ####[facility] [address] [place], [address] Hematocrit (Bld) [Volume fraction] 37.4 % Low 40-54 [facility] Comment on above: Performed By: #### L 503.6550, L503.0106, L100.0100, L503.6150 ####[facility] [address] [place], [address] Hemoglobin (Bld) [Mass/Vol] 12.1 g/dL Low 13.0-16.5 [facility] Comment on above: Performed By: #### L 503.6550, L503.0106, L100.0100, L503.6150 ####[facility] [address] [place], [address] IG% 3.600 High 0.0-0.9 [facility] Comment on above: Result Comment: IG% - Immature Granulocytes (promyelocytes, myelocytes andmetamyelocytes) > 1% indicates that a LEFT SHIFT is Present. Performed By: #### L 503.6550, L503.0106, L100.0100, L503.6150 ####[facility] [address] [place], [address] Lymphocytes/100 WBC (Bld) 10.9 % Low 19-41 [facility] Comment on above: Performed By: #### L 503.6550, L503.0106, L100.0100, L503.6150 ####[facility] [address] [place], [address] MCH (RBC) [Entitic mass] 29.6 pg Normal 27.0-32.0 [facility] Comment on above: Performed By: #### L 503.6550, L503.0106, L100.0100, L503.6150 ####[facility] [address] [place], [address] MCHC (RBC) [Mass/Vol] 32.4 g/dL Normal 32-36 [facility] Comment on above: Performed By: #### L 503.6550, L503.0106, L100.0100, L503.6150 ####[facility] [address] [place], [address] MCV (RBC) [Entitic vol] 91.4 fL Normal 80-94 [facility] Comment on above: Performed By: #### L 503.6550, L503.0106, L100.0100, L503.6150 ####[facility] [address] [place], [address] Monocytes/100 WBC (Bld) 9.9 % Normal 0-10 [facility] Comment on above: Performed By: #### L 503.6550, L503.0106, L100.0100, L503.6150 ####[facility] [address] [place], [address] Neutrophils/100 WBC (Bld) 74.3 % High 47-70 [facility] Comment on above: Performed By: #### L 503.6550, L503.0106, L100.0100, L503.6150 ####[facility] [address] [place], [address] Nucleated RBC (Bld) [#/Vol] 0 10*3/uL Normal 0-5 [facility] Comment on above: Performed By: #### L 503.6550, L503.0106, L100.0100, L503.6150 ####[facility] [address] [place], [address] Platelet mean volume (Bld) [Entitic vol] 12.3 fL High 6.2-12.0 [facility] Comment on above: Performed By: #### L 503.6550, L503.0106, L100.0100, L503.6150 ####[facility] [address] [place], [address] Platelets (Bld) [#/Vol] 169 10*3/uL Normal 150-450 [facility] Comment on above: Performed By: #### L 503.6550, L503.0106, L100.0100, L503.6150 ####[facility] [address] [place], [address] RBC (Bld) [#/Vol] 4.09 10*6/uL Low 4.6-6.2 [facility] Comment on above: Performed By: #### L 503.6550, L503.0106, L100.0100, L503.6150 ####[facility] [address] [place], [address] RDW SD 47.4 fl High 35.1-43.9 [facility] Comment on above: Performed By: #### L 503.6550, L503.0106, L100.0100, L503.6150 ####[facility] [address] [place], [address] WBC (Bld) [#/Vol] 12.4 10*3/uL High 4.4-11.0 [facility] Comment on above: Performed By: #### L 503.6550, L503.0106, L100.0100, L503.6150 ####[facility] [address] [place], [address] Eosinophil percentageOrdered By: Marycarmen Rodriguez on 09-29-2024 Eosinophils/100 WBC (Bld) 0.7 % 0-5 [facility] Erythrocyte distribution wid th ratioOrdered By: Marycarmen Rodriguez on 09-29-2024 Erythrocyte distribution width (RBC) [Ratio] 14.2 % 11.6-14.6 [facility] Erythrocyte distribution wid th standard deviationOrdered By: Marycarmen Rodriguez on 09-29-2024 Erythrocyte distribution width (RBC) [Ratio] 47.4 fl High 35.1-43.9 [facility] Ferritinon 09-29-2024 Ferritin [Mass/Vol] 454 ng/mL High 37-417 [facility] Comment on above: Performed By: #### L 503.6550, L503.0106, L100.0100, L503.6150 ####[facility] [address] [place], [address] Hematocrit Auto (Bld) [Volum e fraction]Ordered By: Marycarmen Rordiguez on 09-29-2024 Hematocrit (Bld) [Volume fraction] 37.4 % Low 40-54 [facility] Hemoglobin measurementOrdere d By: Marycarmen Rodriguez on 09-29-2024 Hemoglobin (Bld) [Mass/Vol] 12.1 g/dL Low 13.0-16.5 [facility] Immature granulocytes/100 WB C Auto (Bld)Ordered By: Marycarmen Rodriguez on 09-29-2024 Immature granulocytes/100 WBC (Bld) 3.600 % High 0.0-0.9 [facility] Comment on above: IG% - Immature Granu locytes (promyelocytes, myelocytes and metamyelocytes) > 1% indicates that a LEFT SHIFT is Present. Ironon 09-29-2024 Iron [Mass/Vol] 80 ug/dL Normal 65-175 [facility] Comment on above: Performed By: #### L 503.6550, L503.0106, L100.0100, L503.6150 ####[facility] [address] [place], [address] Iron measurement (mass/mass) Ordered By: Marycarmen Rodriguez on 09-29-2024 Iron (Unsp spec) [Mass/Mass] 80 ug/dL 65-175 [facility] [facility] MCV (mean corpuscular volume ) determinationOrdered By: Marycarmen Rodriguez on 09-29-2024 MCV (RBC) [Entitic vol] 91.4 fL 80-94 [facility] Mean corpuscular hemoglobin (MCH) determinationOrdered By: Marycarmen Rodriguez on 09-29-2024 MCH (RBC) [Entitic mass] 29.6 pg 27.0-32.0 [facility] Mean corpuscular hemoglobin concentration (MCHC) determinationOrdered By: Marycarmen Rodriguez on 09-29-2024 MCHC (RBC) [Mass/Vol] 32.4 g/dL 32-36 [facility] Mean platelet volume determi nationOrdered By: Marycarmen Rodriguez on 09-29-2024 Platelet mean volume (Bld) [Entitic vol] 12.3 fL High 6.2-12.0 [facility] Monocyte percentageOrdered B y: Marycarmen Rodriguez on 09-29-2024 Monocytes/100 WBC (Bld) 9.9 % 0-10 [facility] Neutrophil percentageOrdered By: Marycarmen Rodriguez on 09-29-2024 Neutrophils/100 WBC (Bld) 74.3 % High 47-70 [facility] Nucleated red blood cell per centageOrdered By: Marycarmen Rodriguez on 09-29-2024 Nucleated RBC/100 WBC (Bld) [Ratio] 0 % 0-5 [facility] Platelet countOrdered By: Ap Rodriguez on 09-29-2024 Platelets (Bld) [#/Vol] 169 10*3/uL 150-450 [facility] RBC Auto (Bld) [#/Vol]Ordere d By: Marycarmen Rodriguez on 09-29-2024 RBC (Bld) [#/Vol] 4.09 10*6/uL Low 4.6-6.2 [facility] Serum or plasma ferritin ritu surement (mass/volume)Ordered By: Marycarmen Rodriguez on 09-29-2024 Ferritin [Mass/Vol] 454 ng/mL High 37-417 [facility] Vitamin B12on 09-29-2024 Cobalamin (Vitamin B12) [Mass/Vol] 766 pg/mL Normal 180-914 [facility] Comment on above: Performed By: #### L 503.6550, L503.0106, L100.0100, L503.6150 ####[facility] [address] [place], [address] Vitamin B12 ser/plasOrdered By: Marycarmen Rodriguez on 09-29-2024 Cobalamin (Vitamin B12) [Mass/Vol] 766 pg/mL 180-914 [facility] White blood cell (WBC) count Ordered By: Marycarmen Rodriguez on 09-29-2024 WBC (Bld) [#/Vol] 12.4 10*3/uL High 4.4-11.0 [facility] Absolute lymphocyte countOrd ered By: ELIAZAR Maren Brendon on 09-20-2024 Lymphocytes Auto (Unsp spec) [#/Vol] 1.44 10*3/uL 0.83-4.51 [facility] Absolute neutrophil countOrd ered By: ELIAZAR Olivas on 09-20-2024 Neutrophils (Bld) [#/Vol] 6.6 10*3/uL 2.0-7.7 [facility] Automated lymphocyte count a s percentage of total leukocytesOrdered By: ELIAZAR Olivas on 09-20-2024 Lymphocytes/100 WBC Auto (Unsp spec) 15.5 % Low 19-41 [facility] Basophil percentageOrdered B y: ELIAZAR Maren Brendon on 09-20-2024 Basophils/100 WBC (Bld) 0.3 % 0-1 [facility] CBC W/Diff, Automatedon 09-01 Absolute Lymph 1.44 X10 3/uL Normal 0.83-4.51 [facility] Comment on above: Performed By: #### L 503.7505, L100.0100 ####[facility] [address] [place], [address] Absolute Neut 6.6 X10 3/uL Normal 2.0-7.7 [facility] Comment on above: Performed By: #### L 503.7505, L100.0100 ####[facility] [address] [place], [address] Basophils/100 WBC (Bld) 0.3 % Normal 0-1 [facility] Comment on above: Performed By: #### L 503.7505, L100.0100 ####[facility] [address] [place], [address] Eosinophils/100 WBC (Bld) 1.5 % Normal 0-5 [facility] Comment on above: Performed By: #### L 503.7505, L100.0100 ####[facility] [address] [place], [address] Erythrocyte distribution width (RBC) [Ratio] 14.1 % Normal 11.6-14.6 [facility] Comment on above: Performed By: #### L 503.7505, L100.0100 ####[facility] [address] [place], [address] Hematocrit (Bld) [Volume fraction] 34.8 % Low 40-54 [facility] Comment on above: Performed By: #### L 503.7505, L100.0100 ####[facility] [address] [place], [address] Hemoglobin (Bld) [Mass/Vol] 11.1 g/dL Low 13.0-16.5 [facility] Comment on above: Performed By: #### L 503.7505, L100.0100 ####[facility] [address] [place], [address] IG% 0.800 Normal 0.0-0.9 [facility] Comment on above: Result Comment: IG% - Immature Granulocytes (promyelocytes, myelocytes andmetamyelocytes) > 1% indicates that a LEFT SHIFT is Present. Performed By: #### L 503.7505, L100.0100 ####[facility] [address] [place], [address] Lymphocytes/100 WBC (Bld) 15.5 % Low 19-41 [facility] Comment on above: Performed By: #### L 503.7505, L100.0100 ####[facility] [address] [place], [address] MCH (RBC) [Entitic mass] 29.4 pg Normal 27.0-32.0 [facility] Comment on above: Performed By: #### L 503.7505, L100.0100 ####[facility] [address] [place], [address] MCHC (RBC) [Mass/Vol] 31.9 g/dL Low 32-36 [facility] Comment on above: Performed By: #### L 503.7505, L100.0100 ####[facility] [address] [place], [address] MCV (RBC) [Entitic vol] 92.1 fL Normal 80-94 [facility] Comment on above: Performed By: #### L 503.7505, L100.0100 ####[facility] [address] [place], [address] Monocytes/100 WBC (Bld) 11.1 % High 0-10 [facility] Comment on above: Performed By: #### L 503.7505, L100.0100 ####[facility] [address] [place], [address] Neutrophils/100 WBC (Bld) 70.8 % High 47-70 [facility] Comment on above: Performed By: #### L 503.7505, L100.0100 ####[facility] [address] [place], [address] Nucleated RBC (Bld) [#/Vol] 0 10*3/uL Normal 0-5 [facility] Comment on above: Performed By: #### L 503.7505, L100.0100 ####[facility] [address] [place], [address] Platelet mean volume (Bld) [Entitic vol] 12.6 fL High 6.2-12.0 [facility] Comment on above: Performed By: #### L 503.7505, L100.0100 ####[facility] [address] [place], [address] Platelets (Bld) [#/Vol] 166 10*3/uL Normal 150-450 [facility] Comment on above: Performed By: #### L 503.7505, L100.0100 ####[facility] [address] [place], [address] RBC (Bld) [#/Vol] 3.78 10*6/uL Low 4.6-6.2 [facility] Comment on above: Performed By: #### L 503.7505, L100.0100 ####[facility] [address] [place], [address] RDW SD 48.0 fl High 35.1-43.9 [facility] Comment on above: Performed By: #### L 503.7505, L100.0100 ####[facility] [address] [place], [address] WBC (Bld) [#/Vol] 9.3 10*3/uL Normal 4.4-11.0 [facility] Comment on above: Performed By: #### L 503.7505, L100.0100 ####[facility] [address] [place], [address] Eosinophil percentageOrdered By: ELIAZAR Olivas on 09-20-2024 Eosinophils/100 WBC (Bld) 1.5 % 0-5 [facility] Erythrocyte distribution wid th ratioOrdered By: ELIAZAR Olivas on 09-20-2024 Erythrocyte distribution width (RBC) [Ratio] 14.1 % 11.6-14.6 [facility] Erythrocyte distribution wid th standard deviationOrdered By: ELIAZAR Olivas on 09-20-2024 Erythrocyte distribution width (RBC) [Ratio] 48.0 fl High 35.1-43.9 [facility] Hematocrit Auto (Bld) [Volum e fraction]Ordered By: ELIAZAR Olivas on 09-20-2024 Hematocrit (Bld) [Volume fraction] 34.8 % Low 40-54 [facility] Hemoglobin measurementOrdere d By: ELIAZAR Olivas on 09-20-2024 Hemoglobin (Bld) [Mass/Vol] 11.1 g/dL Low 13.0-16.5 [facility] Immature granulocytes/100 WB C Auto (Bld)Ordered By: ELIAZAR Olivas on 09-20-2024 Immature granulocytes/100 WBC (Bld) 0.800 % 0.0-0.9 [facility] Comment on above: IG% - Immature Granu locytes (promyelocytes, myelocytes and metamyelocytes) > 1% indicates that a LEFT SHIFT is Present. L503.7505on 09-20-2024 Natriuretic peptide B (Bld) [Mass/Vol] 84 pg/mL Normal <=1800 [facility] Comment on above: Result Comment: Hear t Failure Unlikely: < 300 pg/mLHeart Failure Likely< 50 Years: > 450 pg/mL50-75 Years: > 900 pg/mL>75 Years: > 1800 pg/mL Performed By: #### L 503.7505, L100.0100 ####[facility] [address] [place], [address] MCV (mean corpuscular volume ) determinationOrdered By: ELIAZAR Olivas on 09-20-2024 MCV (RBC) [Entitic vol] 92.1 fL 80-94 [facility] Mean corpuscular hemoglobin (MCH) determinationOrdered By: ELIAZAR Olivas on 09-20-2024 MCH (RBC) [Entitic mass] 29.4 pg 27.0-32.0 [facility] Mean corpuscular hemoglobin concentration (MCHC) determinationOrdered By: ELIAZAR Olivas on 09-20-2024 MCHC (RBC) [Mass/Vol] 31.9 g/dL Low 32-36 [facility] Mean platelet volume determi nationOrdered By: ELIAZAR Olivas on 09-20-2024 Platelet mean volume (Bld) [Entitic vol] 12.6 fL High 6.2-12.0 [facility] Monocyte percentageOrdered B y: ELIAZAR Olivas on 09-20-2024 Monocytes/100 WBC (Bld) 11.1 % High 0-10 [facility] Natriuretic peptide.B prohor efrem N-Terminal [Mass/volume] in Serum or PlasmaOrdered By: ELIAZAR Olivas on 09-20-2024 Natriuretic peptide.B prohormone N-Terminal [Mass/Vol] 84 pg/mL <1800 [facility] Comment on above: Heart Failure Unlike ly: < 300 pg/mLHeart Failure Likely< 50 Years: > 450 pg/mL50-75 Years: > 900 pg/mL>75 Years: > 1800 pg/mL Neutrophil percentageOrdered By: ELIAZAR Olivas on 09-20-2024 Neutrophils/100 WBC (Bld) 70.8 % High 47-70 [facility] Nucleated red blood cell per centageOrdered By: ELIAZAR Olivas on 09-20-2024 Nucleated RBC/100 WBC (Bld) [Ratio] 0 % 0-5 [facility] Platelet countOrdered By: ELIAZAR Olivas on 09-20-2024 Platelets (Bld) [#/Vol] 166 10*3/uL 150-450 [facility] Pulmonary Visit Reporton Pulmonary Visit Report Normal [facility] RBC Auto (Bld) [#/Vol]Ordere d By: ELIAZAR Olivas on 09-20-2024 RBC (Bld) [#/Vol] 3.78 10*6/uL Low 4.6-6.2 [facility] White blood cell (WBC) count Ordered By: ELIAZAR Olivas on 09-20-2024 WBC (Bld) [#/Vol] 9.3 10*3/uL 4.4-11.0 [facility] 6 Minute Walk Teston 025 6 Minute Walk Test Normal [facility] Pulmonary Visit Reporton Pulmonary Visit Report Normal [facility] BUN/creatinine ratioOrdered By: Marycarmen Rodriguez on 06-30-2024 Urea nitrogen/Creatinine [Mass ratio] 17.4 mg/mg 10-20 [facility] Basic Metabolic Profile (BMP )on 06-30-2024 Anion gap [Moles/Vol] 11 mmol/L Normal 5-15 [facility] Comment on above: Performed By: #### L 500.2500 ####[facility] [address] [place], [address] BUN/CRE 17.4 RATIO Normal 10-20 [facility] Comment on above: Performed By: #### L 500.2500 ####[facility] [address] [place], [address] Calcium [Mass/Vol] 9.7 mg/dL Normal 7.6-11.0 [facility] Comment on above: Performed By: #### L 500.2500 ####[facility] [address] [place], [address] Chloride [Moles/Vol] 105 mmol/L Normal 96-108 [facility] Comment on above: Performed By: #### L 500.2500 ####[facility] [address] [place], [address] CO2 [Moles/Vol] 25.3 mmol/L Normal 22.0-29.0 [facility] Comment on above: Performed By: #### L 500.2500 ####[facility] [address] [place], [address] Creatinine [Mass/Vol] 1.80 mg/dL High 0.70-1.20 [facility] Comment on above: Performed By: #### L 500.2500 ####[facility] [address] [place], [address] GFR/1.73 sq M.predicted among non-blacks MDRD (S/P/Bld) [Vol rate/Area] 38 mL/min/{1.73_m2} Low >60 [facility] Comment on above: Result Comment: mL/m in/1.73m2 CKD-EPI Creatinine Equation (2020) Performed By: #### L 500.2500 ####[facility] [address] [place], [address] Glucose [Mass/Vol] 112 mg/dL High 70-99 [facility] Comment on above: Performed By: #### L 500.2500 ####[facility] [address] [place], [address] Potassium [Moles/Vol] 4.8 mmol/L Normal 3.3-5.1 [facility] Comment on above: Performed By: #### L 500.2500 ####[facility] [address] [place], [address] Sodium [Moles/Vol] 141 mmol/L Normal 133-145 [facility] Comment on above: Performed By: #### L 500.2500 ####[facility] [address] [place], [address] Urea nitrogen [Mass/Vol] 31 mg/dL High 4-19 [facility] Comment on above: Performed By: #### L 500.2500 ####[facility] [address] [place], [address] Carbon dioxide measurementOr dered By: Marycarmen Rodriguez on 06-30-2024 CO2 [Moles/Vol] 25.3 mmol/L 22.0-29.0 [facility] Chloride measurementOrdered By: Marycarmen Rodriguez on 06-30-2024 Chloride [Moles/Vol] 105 mmol/L 96-108 [facility] GFR/1.73 sq M.predicted ana lilia g non-blacks MDRD (S/P/Bld) [Vol rate/Area]Ordered By: Marycarmen Rodriguez on 06-30-2024 Estimated GFR (MDRD) Non-Af Amer 38 Low >60 [facility] Comment on above: mL/min/1.73m2 CKD-EP I Creatinine Equation (2020) Glomerular filtration rate ( GFR) estimation/1.73 sq m using serum, plasma, or whole bOrdered By: Marycarmen Rodriguez on 06-30-2024 GFR/1.73 sq M.predicted among non-blacks MDRD (S/P/Bld) [Vol rate/Area] 38 mL/min/{1.73_m2} Low >60 [facility] Comment on above: mL/min/1.73m2 CKD-EP I Creatinine Equation (2020) Serum creatinine measurement (mass/volume)Ordered By: Marycarmen Rodriguez on 06-30-2024 Creatinine [Mass/Vol] 1.80 mg/dL High 0.70-1.20 [facility] Serum glucose measurement (m ass/volume)Ordered By: Marycarmen Rodriguez on 06-30-2024 Glucose [Mass/Vol] 112 mg/dL High 70-99 [facility] Serum or plasma anion gap de termination (moles/volume)Ordered By: Marycarmen Rodriguez on 06-30-2024 Anion gap [Moles/Vol] 11 mmol/L 5-15 [facility] Serum or plasma calcium francine urement (mass/volume)Ordered By: Marycarmen Rodriguez on 06-30-2024 Calcium [Mass/Vol] 9.7 mg/dL 7.6-11.0 [facility] Serum or plasma potassium me asurementOrdered By: Marycarmen Rodriguez on 06-30-2024 Potassium [Moles/Vol] 4.8 mmol/L 3.3-5.1 [facility] Serum or plasma sodium measu rement (moles/volume)Ordered By: Marycarmen Rodriguez on 06-30-2024 Sodium [Moles/Vol] 141 mmol/L 133-145 [facility] Serum or plasma urea nitroge n measurement (mass/volume)Ordered By: Marycarmen Rodriguez on 06-30-2024 Urea nitrogen [Mass/Vol] 31 mg/dL High 4-19 [facility] Absolute neutrophil countOrd ered By: Gustabo Pérez on 04-17-2024 Neutrophils (Bld) [#/Vol] 6.0 10*3/uL 2.0-7.7 [facility] BNP (brain natriuretic pepti de measurement)Ordered By: Gustabo Pérez on 04-17-2024 Natriuretic peptide B (Bld) [Mass/Vol] 37.2 pg/mL 0-100 [facility] BNP,B-Type NATRIURETIC PEPTI Sharon 04-17-2024 Natriuretic peptide B (Bld) [Mass/Vol] 37.2 pg/mL Normal 0-100 [facility] Comment on above: Performed By: #### L 500.2500, L100.0100, L503.6620 ####[facility] [address] [place], [address] Basic Metabolic Profile (BMP )on 04-17-2024 BUN/CRE 11.2 RATIO Normal 10-20 [facility] Comment on above: Performed By: #### L 500.2500, L100.0100, L503.6620 ####[facility] [address] [place], [address] CA,Total 9.0 mg/dL Normal 8.5-10.1 [facility] Comment on above: Performed By: #### L 500.2500, L100.0100, L503.6620 ####[facility] [address] [place], [address] Chloride [Moles/Vol] 107 mmol/L Normal 98-107 [facility] Comment on above: Performed By: #### L 500.2500, L100.0100, L503.6620 ####[facility] [address] [place], [address] CO2 [Moles/Vol] 27.0 mmol/L Normal 21.0-32.0 [facility] Comment on above: Performed By: #### L 500.2500, L100.0100, L503.6620 ####[facility] [address] [place], [address] Creatinine [Mass/Vol] 1.79 mg/dL High 0.70-1.30 [facility] Comment on above: Result Comment: The validity of the calculated GFR GFRAA in patients over70 years has not been determined. Clinical correlation isessential. Performed By: #### L 500.2500, L100.0100, L503.6620 ####[facility] [address] [place], [address] EST GFR - AA 47 mL/min Low >60 [facility] Comment on above: Result Comment: Afri can Citizen Of [place] GFR Calc Performed By: #### L 500.2500, L100.0100, L503.6620 ####[facility] [address] [place], [address] GAP 4 Low 5-15 [facility] Comment on above: Performed By: #### L 500.2500, L100.0100, L503.6620 ####[facility] [address] [place], [address] GFR/1.73 sq M.predicted among non-blacks MDRD (S/P/Bld) [Vol rate/Area] 39 mL/min/{1.73_m2} Low >60 [facility] Comment on above: Result Comment: Non- GFR Calc Performed By: #### L 500.2500, L100.0100, L503.6620 ####[facility] [address] [place], [address] Glucose [Mass/Vol] 228 mg/dL High 74-106 [facility] Comment on above: Result Comment: Gluc ose result greater than or equal to 200 mg/dLsuggests DIABETES MELLITUS per A.D.A. criteria. Performed By: #### L 500.2500, L100.0100, L503.6620 ####[facility] [address] [place], [address] Potassium [Moles/Vol] 4.8 mmol/L Normal 3.5-5.1 [facility] Comment on above: Performed By: #### L 500.2500, L100.0100, L503.6620 ####[facility] [address] [place], [address] Sodium [Moles/Vol] 138 mmol/L Normal 136-145 [facility] Comment on above: Performed By: #### L 500.2500, L100.0100, L503.6620 ####[facility] [address] [place], [address] Urea nitrogen [Mass/Vol] 20 mg/dL High 7- [facility] Comment on above: Performed By: #### L 500.2500, L100.0100, L503.6620 ####[facility] [address] [place], [address] Basophil percentageOrdered B y: Gsutabo Pérez on 04-17-2024 Basophils/100 WBC (Bld) 0.5 % 0-1 [facility] Blood urea nitrogen (BUN)/cr eatinine ratioOrdered By: Gustabo Pérez on 04-17-2024 Urea nitrogen/Creatinine [Mass ratio] 11.2 mg/mg - [facility] CBC W/Diff, Automatedon 04-02 Absolute Lymph 1.29 X10 3/uL Normal 0.83-4.51 [facility] Comment on above: Performed By: #### L 500.2500, L100.0100, L503.6620 ####[facility] [address] [place], [address] Absolute Neut 6.0 X10 3/uL Normal 2.0-7.7 [facility] Comment on above: Performed By: #### L 500.2500, L100.0100, L503.6620 ####[facility] [address] [place], [address] Basophils/100 WBC (Bld) 0.5 % Normal 0-1 [facility] Comment on above: Performed By: #### L 500.2500, L100.0100, L503.6620 ####[facility] [address] [place], [address] Eosinophils/100 WBC (Bld) 1.2 % Normal 0-5 [facility] Comment on above: Performed By: #### L 500.2500, L100.0100, L503.6620 ####[facility] [address] [place], [address] Erythrocyte distribution width (RBC) [Ratio] 13.9 % Normal 11.6-14.6 [facility] Comment on above: Performed By: #### L 500.2500, L100.0100, L503.6620 ####[facility] [address] [place], [address] Hematocrit (Bld) [Volume fraction] 41.0 % Normal 40-54 [facility] Comment on above: Performed By: #### L 500.2500, L100.0100, L503.6620 ####[facility] [address] [place], [address] Hemoglobin (Bld) [Mass/Vol] 13.2 g/dL Normal 13.0-16.5 [facility] Comment on above: Performed By: #### L 500.2500, L100.0100, L503.6620 ####[facility] [address] [place], [address] IG% 0.600 Normal 0.0-0.9 [facility] Comment on above: Result Comment: IG% - Immature Granulocytes (promyelocytes, myelocytes andmetamyelocytes) > 1% indicates that a LEFT SHIFT is Present. Performed By: #### L 500.2500, L100.0100, L503.6620 ####[facility] [address] [place], [address] Lymphocytes/100 WBC (Bld) 15.7 % Low 19-41 [facility] Comment on above: Performed By: #### L 500.2500, L100.0100, L503.6620 ####[facility] [address] [place], [address] MCH (RBC) [Entitic mass] 29.2 pg Normal 27.0-32.0 [facility] Comment on above: Performed By: #### L 500.2500, L100.0100, L503.6620 ####[facility] [address] [place], [address] MCHC (RBC) [Mass/Vol] 32.2 g/dL Normal 32-36 [facility] Comment on above: Performed By: #### L 500.2500, L100.0100, L503.6620 ####[facility] [address] [place], [address] MCV (RBC) [Entitic vol] 90.7 fL Normal 80-94 [facility] Comment on above: Performed By: #### L 500.2500, L100.0100, L503.6620 ####[facility] [address] [place], [address] Monocytes/100 WBC (Bld) 8.5 % Normal 0-10 [facility] Comment on above: Performed By: #### L 500.2500, L100.0100, L503.6620 ####[facility] [address] [place], [address] Neutrophils/100 WBC (Bld) 73.5 % High 47-70 [facility] Comment on above: Performed By: #### L 500.2500, L100.0100, L503.6620 ####[facility] [address] [place], [address] Nucleated RBC (Bld) [#/Vol] 0 10*3/uL Normal 0-5 [facility] Comment on above: Performed By: #### L 500.2500, L100.0100, L503.6620 ####[facility] [address] [place], [address] Platelet mean volume (Bld) [Entitic vol] 12.3 fL High 6.2-12.0 [facility] Comment on above: Performed By: #### L 500.2500, L100.0100, L503.6620 ####[facility] [address] [place], [address] Platelets (Bld) [#/Vol] 185 10*3/uL Normal 150-450 [facility] Comment on above: Performed By: #### L 500.2500, L100.0100, L503.6620 ####[facility] [address] [place], [address] RBC (Bld) [#/Vol] 4.52 10*6/uL Low 4.6-6.2 [facility] Comment on above: Performed By: #### L 500.2500, L100.0100, L503.6620 ####[facility] [address] [place], [address] RDW SD 46.4 fl High 35.1-43.9 [facility] Comment on above: Performed By: #### L 500.2500, L100.0100, L503.6620 ####[facility] [address] [place], [address] WBC (Bld) [#/Vol] 8.2 10*3/uL Normal 4.4-11.0 [facility] Comment on above: Performed By: #### L 500.2500, L100.0100, L503.6620 ####[facility] [address] [place], [address] Carbon dioxide measurementOr dered By: uGstabo Pérez on 04-17-2024 CO2 [Moles/Vol] 27.0 mmol/L 21.0-32.0 [facility] Cardiology Visit Reporton Cardiology Visit Report Normal [facility] Chloride measurementOrdered By: Gustabo Pérez on 04-17-2024 Chloride [Moles/Vol] 107 mmol/L 98-107 [facility] Eosinophil percentageOrdered By: Gustabo Pérez on 04-17-2024 Eosinophils/100 WBC (Bld) 1.2 % 0-5 [facility] Erythrocyte distribution wid th ratioOrdered By: Gustabo Pérez on 04-17-2024 Erythrocyte distribution width (RBC) [Ratio] 13.9 % 11.6-14.6 [facility] Erythrocyte distribution wid th standard deviationOrdered By: Gustabo Pérez on 04-17-2024 Erythrocyte distribution width (RBC) [Entitic vol] 46.4 fL High 35.1-43.9 [facility] Estimated glomerular filtrat ion rate (GFR) AmericanOrdered By: Gustabo Pérez on 04-17-2024 Estimated GFR (MDRD) Amer 47 mL/min Low >60 [facility] Comment on above: GFR Calc Glomerular filtration rate ( GFR) estimationOrdered By: Gustabo Pérez on 04-17-2024 Estimated GFR (MDRD) Non-Af Amer 39 mL/min Low >60 [facility] Comment on above: Non- GFR Calc Glucose measurementOrdered B y: Gustabo Pérez on 04-17-2024 Glucose [Mass/Vol] 228 mg/dL High 74-106 [facility] Comment on above: Glucose result great er than or equal to 200 mg/dLsuggests DIABETES MELLITUS per A.D.A. criteria. Hematocrit Auto (Bld) [Volum e fraction]Ordered By: Gustabo Pérez on 04-17-2024 Hematocrit (Bld) [Volume fraction] 41.0 % 40-54 [facility] Hemoglobin measurementOrdere d By: Gustabo Pérez on 04-17-2024 Hemoglobin (Bld) [Mass/Vol] 13.2 g/dL 13.0-16.5 [facility] Immature granulocytes/100 WB C Auto (Bld)Ordered By: Gustabo Pérez on 04-17-2024 Immature granulocytes/100 WBC (Bld) 0.600 % 0.0-0.9 [facility] Comment on above: IG% - Immature Granu locytes (promyelocytes, myelocytes and metamyelocytes) > 1% indicates that a LEFT SHIFT is Present. Lymphocytes Auto (Unsp spec) [#/Vol]Ordered By: Gustabo Pérez on 04-17-2024 Lymphocytes (Bld) [#/Vol] 1.29 10*3/uL 0.83-4.51 [facility] Lymphocytes/100 WBC Auto (Un sp spec)Ordered By: Gustabo Pérez on 04-17-2024 Lymphocytes/100 WBC (Bld) 15.7 % Low 19-41 [facility] MCV (mean corpuscular volume ) determinationOrdered By: Gustabo Pérez on 04-17-2024 MCV (RBC) [Entitic vol] 90.7 fL 80-94 [facility] Mean corpuscular hemoglobin (MCH) determinationOrdered By: Gustabo Pérez on 04-17-2024 MCH (RBC) [Entitic mass] 29.2 pg 27.0-32.0 [facility] Mean corpuscular hemoglobin concentration (MCHC) determinationOrdered By: Gustabo Pérez on 04-17-2024 MCHC (RBC) [Mass/Vol] 32.2 g/dL 32-36 [facility] Mean platelet volume determi nationOrdered By: Gustabo Pérez on 04-17-2024 Platelet mean volume (Bld) [Entitic vol] 12.3 fL High 6.2-12.0 [facility] Monocyte percentageOrdered B y: Gustabo Pérez on 04-17-2024 Monocytes/100 WBC (Bld) 8.5 % 0-10 [facility] Neutrophil percentageOrdered By: Gustabo Pérez on 04-17-2024 Neutrophils/100 WBC (Bld) 73.5 % High 47-70 [facility] Nucleated red blood cell per centageOrdered By: Gustabo Pérez on 04-17-2024 Nucleated RBC/100 WBC (Bld) [Ratio] 0 % 0-5 [facility] Platelet countOrdered By: Lydia Pérez on 04-17-2024 Platelets (Bld) [#/Vol] 185 10*3/uL 150-450 [facility] Potassium measurementOrdered By: Gustabo Pérez on 04-17-2024 Potassium [Moles/Vol] 4.8 mmol/L 3.5-5.1 [facility] RBC Auto (Bld) [#/Vol]Ordere d By: Gustabo Pérez on 04-17-2024 RBC (Bld) [#/Vol] 4.52 10*6/uL Low 4.6-6.2 [facility] Serum anion gap measurementO rdered By: Gustabo Pérez on 04-17-2024 Anion gap [Moles/Vol] 4 mmol/L Low 5-15 [facility] Serum or plasma calcium francine urement (mass/volume)Ordered By: Gustabo Pérez on 04-17-2024 Calcium [Mass/Vol] 9.0 mg/dL 8.5-10.1 [facility] Serum or plasma creatinine m easurement (mass/volume)Ordered By: Gustabo Pérez on 04-17-2024 Creatinine [Mass/Vol] 1.79 mg/dL High 0.70-1.30 [facility] Comment on above: The validity of the calculated GFR & GFRAA in patients over 70 years has not been determined. Clinical correlation is essential. Serum or plasma urea nitroge n measurement (mass/volume)Ordered By: Gustabo Pérez on 04-17-2024 Urea nitrogen [Mass/Vol] 20 mg/dL High 7-18 [facility] Sodium levelOrdered By: Gustabo Pérez on 04-17-2024 Sodium [Moles/Vol] 138 mmol/L 136-145 [facility] White blood cell (WBC) count Ordered By: Gustabo Pérez on 04-17-2024 WBC (Bld) [#/Vol] 8.2 10*3/uL 4.4-11.0 [facility] Office Visit Reporton 2023 Office Visit Report Normal [facility] Albumin to globulin ratioOrd ered By: Jose Hay on 03-23-2024 Albumin/Globulin [Mass ratio] 1.1 {ratio} 0.9-2.4 [facility] Bilirubin, totalOrdered By: Jose Hay on 03-23-2024 Bilirubin [Mass/Vol] 2.00 mg/dL High 0.20-1.00 [facility] Comment on above: For patients on eltr ombopag therapy, use of Dimension [place] TBIL is not recommended. Blood urea nitrogen (BUN)/cr eatinine ratioOrdered By: Jose Hay on 03-23-2024 Urea nitrogen/Creatinine [Mass ratio] 18.0 mg/mg 10-20 [facility] Carbon dioxide measurementOr dered By: Jose Hay on 03-23-2024 CO2 [Moles/Vol] 28.0 mmol/L 21.0-32.0 [facility] Chloride measurementOrdered By: Jose Hay on 03-23-2024 Chloride [Moles/Vol] 104 mmol/L 98-107 [facility] Comprehensive Metabolic Prof ilon 03-23-2024 Albumin [Mass/Vol] 3.7 g/dL Normal 3.2-5.0 [facility] Comment on above: Order Comment: DR REMY ORDERED BMP AND MAGNESIUM.DR HAY ORDERED LIPID CMP TSH. RANGLE Performed By: #### L 501.5200, L500.4050, L501.9520, L500.4100 ####[facility] [address] [place], [address] Albumin/Globulin [Mass ratio] 1.1 {ratio} Normal 0.9-2.4 [facility] Comment on above: Order Comment: DR REMY ORDERED BMP AND MAGNESIUM.DR HAY ORDERED LIPID CMP TSH. RANGLE Performed By: #### L 501.5200, L500.4050, L501.9520, L500.4100 ####[facility] [id number] [place], [address] ALK P 92 U/L Normal 45-117 [facility] Comment on above: Order Comment: DR REMY ORDERED BMP AND MAGNESIUM.DR HAY ORDERED LIPID CMP TSH. RANGLE Performed By: #### L 501.5200, L500.4050, L501.9520, L500.4100 ####[facility] [address] [place], [address] ALT [Catalytic activity/Vol] 52 U/L Normal 16-61 [facility] Comment on above: Order Comment: DR REMY ORDERED BMP AND MAGNESIUM.DR HAY ORDERED LIPID CMP TSH. RANGLE Performed By: #### L 501.5200, L500.4050, L501.9520, L500.4100 ####[facility] [address] [place], [address] AST [Catalytic activity/Vol] 28 U/L Normal 15-37 [facility] Comment on above: Order Comment: DR REMY ORDERED BMP AND MAGNESIUM.DR HAY ORDERED LIPID CMP TSH. RANGLE Performed By: #### L 501.5200, L500.4050, L501.9520, L500.4100 ####[facility] [address] [place], [address] Bilirubin [Mass/Vol] 2.00 mg/dL High 0.20-1.00 [facility] Comment on above: Order Comment: DR REMY ORDERED BMP AND MAGNESIUM.DR HAY ORDERED LIPID CMP TSH. RANGLE Result Comment: For patients on eltrombopag therapy, use of [employer]ension [place] TBIL is not recommended. Performed By: #### L 501.5200, L500.4050, L501.9520, L500.4100 ####[facility] [address] [place], [address] BUN/CRE 18.0 RATIO Normal 10-20 [facility] Comment on above: Order Comment: DR REMY ORDERED BMP AND MAGNESIUM.DR HAY ORDERED LIPID CMP TSH. RANGLE Performed By: #### L 501.5200, L500.4050, L501.9520, L500.4100 ####[facility] [address] [place], [address] CA,Total 8.8 mg/dL Normal 8.5-10.1 [facility] Comment on above: Order Comment: DR REMY ORDERED BMP AND MAGNESIUM.DR HAY ORDERED LIPID CMP TSH. RANGLE Performed By: #### L 501.5200, L500.4050, L501.9520, L500.4100 ####[facility] [address] [place], [address] Chloride [Moles/Vol] 104 mmol/L Normal 98-107 [facility] Comment on above: Order Comment: DR REMY ORDERED BMP AND MAGNESIUM.DR HAY ORDERED LIPID CMP TSH. RANGLE Performed By: #### L 501.5200, L500.4050, L501.9520, L500.4100 ####[facility] [address] [place], [address] CO2 [Moles/Vol] 28.0 mmol/L Normal 21.0-32.0 [facility] Comment on above: Order Comment: DR REMY ORDERED BMP AND MAGNESIUM.DR HAY ORDERED LIPID CMP TSH. RANGLE Performed By: #### L 501.5200, L500.4050, L501.9520, L500.4100 ####[facility] [address] [place], [address] Creatinine [Mass/Vol] 1.67 mg/dL High 0.70-1.30 [facility] Comment on above: Order Comment: DR REMY ORDERED BMP AND MAGNESIUM.DR HAY ORDERED LIPID CMP TSH. RANGLE Result Comment: The validity of the calculated GFR GFRAA in patients over70 years has not been determined. Clinical correlation isessential. Performed By: #### L 501.5200, L500.4050, L501.9520, L500.4100 ####[facility] [address] [place], [address] EST GFR - AA 51 mL/min Low >60 [facility] Comment on above: Order Comment: DR REMY ORDERED BMP AND MAGNESIUM.DR HAY ORDERED LIPID CMP TSH. RANGLE Result Comment: Afri can Citizen [place] GFR Calc Performed By: #### L 501.5200, L500.4050, L501.9520, L500.4100 ####[facility] [address] [place], [address] GAP 6 Normal 5-15 [facility] Comment on above: Order Comment: DR REMY ORDERED BMP AND MAGNESIUM.DR HAY ORDERED LIPID CMP TSH. RANGLE Performed By: #### L 501.5200, L500.4050, L501.9520, L500.4100 ####[facility] [address] [place], [address] GFR/1.73 sq M.predicted among non-blacks MDRD (S/P/Bld) [Vol rate/Area] 42 mL/min/{1.73_m2} Low >60 [facility] Comment on above: Order Comment: DR REMY ORDERED BMP AND MAGNESIUM.DR HAY ORDERED LIPID CMP TSH. RANGLE Result Comment: Non- GFR Calc Performed By: #### L 501.5200, L500.4050, L501.9520, L500.4100 ####[facility] [address] [place], [address] Globulin (S) [Mass/Vol] 3.3 g/dL Normal 2.2-4.2 [facility] Comment on above: Order Comment: DR REMY ORDERED BMP AND MAGNESIUM.DR HAY ORDERED LIPID CMP TSH. RANGLE Performed By: #### L 501.5200, L500.4050, L501.9520, L500.4100 ####[facility] [address] [place], [address] Glucose [Mass/Vol] 146 mg/dL High 74-106 [facility] Comment on above: Order Comment: DR REMY ORDERED BMP AND MAGNESIUM.DR HAY ORDERED LIPID CMP TSH. RANGLE Result Comment: Fast ing Glucose result greater than or equal to 126 mg/dLsuggests DIABETES MELLITUS per A.D.A. criteria. Performed By: #### L 501.5200, L500.4050, L501.9520, L500.4100 ####[facility] [address] [place], [address] Potassium [Moles/Vol] 4.4 mmol/L Normal 3.5-5.1 [facility] Comment on above: Order Comment: DR ERMY ORDERED BMP AND MAGNESIUM.DR HAY ORDERED LIPID CMP TSH. RANGLE Performed By: #### L 501.5200, L500.4050, L501.9520, L500.4100 ####[facility] [address] [place], [address] Sodium [Moles/Vol] 138 mmol/L Normal 136-145 [facility] Comment on above: Order Comment: DR REMY ORDERED BMP AND MAGNESIUM.DR HAY ORDERED LIPID CMP TSH. RANGLE Performed By: #### L 501.5200, L500.4050, L501.9520, L500.4100 ####[facility] [address] [place], [address] T PROT 7.0 g/dL Normal 6.4-8.2 [facility] Comment on above: Order Comment: DR REMY ORDERED BMP AND MAGNESIUM.DR HAY ORDERED LIPID CMP TSH. RANGLE Performed By: #### L 501.5200, L500.4050, L501.9520, L500.4100 ####[facility] [address] [place], [address] Urea nitrogen [Mass/Vol] 30 mg/dL High 7-18 [facility] Comment on above: Order Comment: DR REMY ORDERED BMP AND MAGNESIUM.DR HAY ORDERED LIPID CMP TSH. RANGLE Performed By: #### L 501.5200, L500.4050, L501.9520, L500.4100 ####[facility] [address] [place], [address] Estimated glomerular filtrat ion rate (GFR) AmericanOrdered By: Jose Hay on 03-23-2024 Estimated GFR (MDRD) Amer 51 mL/min Low >60 [facility] Comment on above: GFR Calc Glomerular filtration rate ( GFR) estimationOrdered By: Jose Hay on 03-23-2024 Estimated GFR (MDRD) Non-Af Amer 42 mL/min Low >60 [facility] Comment on above: Non- GFR Calc Glucose measurementOrdered B y: Jose Hay on 03-23-2024 Glucose [Mass/Vol] 146 mg/dL High 74-106 [facility] Comment on above: Fasting Glucose resu lt greater than or equal to 126 mg/dL suggests DIABETES MELLITUS per A.D.A. criteria. High density lipoprotein (HD L) measurementOrdered By: Jose Hay on 03-23-2024 Cholesterol in HDL [Mass/Vol] 52 mg/dL >40 [facility] Comment on above: The drugs N-Acetylcy steine and Metamizole may falsely depress this assay. Reference Range HDL <40 mg/dL Low HDL Cholesterol HDL >or= 60 mg/dL High HDL Cholesterol Laboratory - Chemistry and C hemistry - challengeOrdered By: Jose Hay on 03-23-2024 AST [Catalytic activity/Vol] 28 U/L 15-37 [facility] Lipid Profileon 03-23-2024 Cholesterol [Mass/Vol] 158 mg/dL Normal 200 [facility] Comment on above: Order Comment: DR REMY ORDERED BMP AND MAGNESIUM.DR HAY ORDERED LIPID CMP TSH. RANGLE Result Comment: <200 mg/dL Desirable 200-240 mg/dL Borderline >240 mg/dL High Risk Performed By: #### L 501.5200, L500.4050, L501.9520, L500.4100 ####[facility] [address] [place], [address] Cholesterol in HDL [Mass/Vol] 52 mg/dL Normal [facility] Comment on above: Order Comment: DR REMY ORDERED BMP AND MAGNESIUM.DR HAY ORDERED LIPID CMP TSH. RANGLE Result Comment: The drugs N-Acetylcysteine and Metamizole may falselydepress this assay. Reference Range HDL <40 mg/dL Low HDL Cholesterol HDL >or= 60 mg/dL High HDL Cholesterol Performed By: #### L 501.5200, L500.4050, L501.9520, L500.4100 ####[facility] [address] [place], [address] Cholesterol in LDL [Mass/Vol] 61 mg/dL Normal 0-130 [facility] Comment on above: Order Comment: DR REMY ORDERED BMP AND MAGNESIUM.DR HAY ORDERED LIPID CMP TSH. RANGLE Performed By: #### L 501.5200, L500.4050, L501.9520, L500.4100 ####[facility] [address] [place], [address] Cholesterol in VLDL [Mass/Vol] 45 mg/dL High 5-40 [facility] Comment on above: Order Comment: DR REMY ORDERED BMP AND MAGNESIUM.DR HAY ORDERED LIPID CMP TSH. RANGLE Performed By: #### L 501.5200, L500.4050, L501.9520, L500.4100 ####[facility] [address] [place], [address] Triglyceride [Mass/Vol] 225 mg/dL High [facility] Comment on above: Order Comment: DR REMY ORDERED BMP AND MAGNESIUM.DR HAY ORDERED LIPID CMP TSH. RANGLE Result Comment: The drugs N-Acetylcysteine and Metamizole may falselydepress this assay.Serum Triglycerides Reference Interval Normal <150 mg/dL Borderline high 150 - 199 mg/dL High 200 - 499 mg/dL Very High > or = 500 mg/dL Performed By: #### L 501.5200, L500.4050, L501.9520, L500.4100 ####[facility] [address] [place], [address] Low density lipoprotein (LDL ) cholesterol measurementOrdered By: Jose Hay on 03-23-2024 Cholesterol in LDL [Mass/Vol] 61 mg/dL 0-130 [facility] Magnesiumon 03-23-2024 Magnesium [Mass/Vol] 2.1 mg/dL Normal 1.6-2.6 [facility] Comment on above: Order Comment: DR REMY ORDERED BMP AND MAGNESIUM.DR HAY ORDERED LIPID CMP TSH. RANGLE Performed By: #### L 501.5200, L500.4050, L501.9520, L500.4100 ####[facility] [address] [place], [address] Magnesium measurementOrdered By: Jose Hay on 03-23-2024 Magnesium [Mass/Vol] 2.1 mg/dL 1.6-2.6 [facility] Potassium measurementOrdered By: Jose Hay on 03-23-2024 Potassium [Moles/Vol] 4.4 mmol/L 3.5-5.1 [facility] Serum anion gap measurementO rdered By: Jose Hay on 03-23-2024 Anion gap [Moles/Vol] 6 mmol/L 5-15 [facility] Serum globulin measurementOr dered By: Jose Hay on 03-23-2024 Globulin (S) [Mass/Vol] 3.3 g/dL 2.2-4.2 [facility] Serum or plasma alanine guerrero otransferase (ALT) measurementOrdered By: Jose Hay on 03-23-2024 ALT [Catalytic activity/Vol] 52 U/L 16-61 [facility] Serum or plasma albumin francine urement (mass/volume)Ordered By: Jose Hay on 03-23-2024 Albumin [Mass/Vol] 3.7 g/dL 3.2-5.0 [facility] Serum or plasma alkaline bell sphatase measurementOrdered By: Jose Hay on 03-23-2024 ALP [Catalytic activity/Vol] 92 U/L 45-117 [facility] Serum or plasma calcium francine urement (mass/volume)Ordered By: Jose Hay on 03-23-2024 Calcium [Mass/Vol] 8.8 mg/dL 8.5-10.1 [facility] Serum or plasma cholesterol measurement (mass/volume)Ordered By: Jose Hay on 03-23-2024 Cholesterol [Mass/Vol] 158 mg/dL <200 [facility] Comment on above: <200 mg/dL Desirable 200-240 mg/dL Borderline >240 mg/dL High Risk Serum or plasma creatinine m easurement (mass/volume)Ordered By: Jose Hay on 03-23-2024 Creatinine [Mass/Vol] 1.67 mg/dL High 0.70-1.30 [facility] Comment on above: The validity of the calculated GFR & GFRAA in patients over 70 years has not been determined. Clinical correlation is essential. Serum or plasma urea nitroge n measurement (mass/volume)Ordered By: Jose Hay on 03-23-2024 Urea nitrogen [Mass/Vol] 30 mg/dL High 7-18 [facility] Sodium levelOrdered By: Ernst Hay on 03-23-2024 Sodium [Moles/Vol] 138 mmol/L 136-145 [facility] TSH QnOrdered By: Jose rodriguez on 03-23-2024 Thyroid Stimulating Hormone (TSH) 5.340 uIU/mL High 0.358-3.74 0 [facility] Thyroid Stim Hormone (TSH)on 03-23-2024 TSH 5.340 uIU/mL High 0.358-3.74 0 [facility] Comment on above: Order Comment: DR REMY ORDERED BMP AND MAGNESIUM.DR HAY ORDERED LIPID CMP TSH. RANGLE Performed By: #### L 501.5200, L500.4050, L501.9520, L500.4100 ####[facility] [address] [place], [place], [address] Total proteinOrdered By: Emmanuel Hay on 03-23-2024 Protein [Mass/Vol] 7.0 g/dL 6.4-8.2 [facility] Triglycerides measurementOrd ered By: Jose Hay on 03-23-2024 Triglyceride [Mass/Vol] 225 mg/dL High <199 [facility] Comment on above: The drugs N-Acetylcy steine and Metamizole may falsely depress this assay.Serum Triglycerides Reference Interval Normal <150 mg/dL Borderline high 150 - 199 mg/dL High 200 - 499 mg/dL Very High > or = 500 mg/dL Very low density lipoprotein (VLDL) cholesterol measurementOrdered By: Jose Hay on 03-23-2024 VLDL Cholesterol 45 mg/dL High 5-40 [facility] Cardiology Visit Reporton Cardiology Visit Report Normal [facility] Basophil percentageOrdered B y: Marycarmen Rodriguez on 05-07-2023 Chloride [Moles/Vol] 103 mmol/L 98-107 [facility] Glucose [Mass/Vol] 172 mg/dL 74-106 [facility] Comment on above: Fasting Glucose resu lt greater than or equal to 126 mg/dL suggests DIABETES MELLITUS per A.D.A. criteria. Potassium [Moles/Vol] 3.7 mmol/L 3.5-5.1 [facility] Sodium [Moles/Vol] 138 mmol/L 136-145 [facility] Laboratory - Chemistry and C hemistry - challengeOrdered By: Marycarmen Rodriguez on 05-07-2023 CO2 [Moles/Vol] 27.0 mmol/L 21.0-32.0 [facility] Urea nitrogen/Creatinine [Mass ratio] 13.9 mg/mg 10-20 [facility] No Panel InformationOrdered By: Marycarmen Rodriguez on 05-07-2023 Estimated GFR (MDRD) Amer 74 mL/min >60 [facility] Comment on above: GFR Calc Estimated GFR (MDRD) Non-Af Amer 61 mL/min >60 [facility] Comment on above: Non- GFR Calc Serum or plasma calcium francine urement (mass/volume)Ordered By: Marycarmen Rodriguez on 05-07-2023 Calcium [Mass/Vol] 8.6 mg/dL 8.5-10.1 [facility] Serum or plasma creatinine m easurement (mass/volume)Ordered By: Marycarmen Rodriguez on 05-07-2023 Creatinine [Mass/Vol] 1.22 mg/dL 0.70-1.30 [facility] Comment on above: The validity of the calculated GFR & GFRAA in patients over 70 years has not been determined. Clinical correlation is essential. Serum or plasma urea nitroge n measurement (mass/volume)Ordered By: Marycarmen Rodriguez on 05-07-2023 Urea nitrogen [Mass/Vol] 17 mg/dL 7-18 [facility] Thin prep Papanicolaou smear with manual screeningOrdered By: Marycarmen Rodriguez on 05-07-2023 Thin prep Papanicolaou smear with manual screening 8 5-15 [facility] Basophil percentageOrdered B y: Jose Hay on 12-15-2022 Chloride [Moles/Vol] 110 mmol/L 98-107 [facility] Glucose [Mass/Vol] 121 mg/dL 74-106 [facility] Comment on above: Fasting Glucose resu lt from 100 to 125 mg/dL suggests IMPAIRED HOMEOSTASIS per A.D.A. criteria. Potassium [Moles/Vol] 4.0 mmol/L 3.5-5.1 [facility] Sodium [Moles/Vol] 139 mmol/L 136-145 [facility] WBC (Bld) [#/Vol] 7.3 10*3/uL 4.4-11.0 [facility] Blood erythrocytes count (nu mber/volume)Ordered By: Jose Hay on 12-15-2022 RBC (Bld) [#/Vol] 5.18 10*6/uL 4.6-6.2 [facility] Blood hemoglobin measurement (mass/volume)Ordered By: Jose Hay on 12-15-2022 Hemoglobin (Bld) [Mass/Vol] 15.2 g/dL 13.0-16.5 [facility] Blood platelet mean volumeOr dered By: Josejina Hay on 12-15-2022 Platelet mean volume (Bld) [Entitic vol] 12.2 fL 6.2-12.0 [facility] Determination of erythrocyte mean corpuscular volume (MCV)Ordered By: Jose Hay on 12-15-2022 MCV (RBC) [Entitic vol] 90.2 fL 80-94 [facility] Hematocrit Auto (Bld) [Volum e fraction]Ordered By: Josejina Hay on 12-15-2022 Hematocrit (Bld) [Volume fraction] 46.7 % 40-54 [facility] Laboratory - Chemistry and C hemistry - challengeOrdered By: Josejina Hay on 12-15-2022 CO2 [Moles/Vol] 23.0 mmol/L 21.0-32.0 [facility] Natriuretic peptide B (Bld) [Mass/Vol] 38.1 pg/mL 0-100 [facility] Urea nitrogen/Creatinine [Mass ratio] 13.5 mg/mg 10-20 [facility] Laboratory - Hematology and Cell countsOrdered By: Jose Hay on 12-15-2022 Erythrocyte distribution width (RBC) [Entitic vol] 47.5 fL 35.1-43.9 [facility] Erythrocyte distribution width (RBC) [Ratio] 14.4 % 11.6-14.6 [facility] MCH (RBC) [Entitic mass] 29.3 pg 27.0-32.0 [facility] MCHC Auto (RBC) [Mass/Vol]Or dered By: Jose Hay on 12-15-2022 MCHC (RBC) [Mass/Vol] 32.5 g/dL 32-36 [facility] No Panel InformationOrdered By: Jose Hay on 12-15-2022 Estimated GFR (MDRD) Amer 83 mL/min >60 [facility] Comment on above: GFR Calc Estimated GFR (MDRD) Non-Af Amer 68 mL/min >60 [facility] Comment on above: Non- GFR Calc Platelets bldOrdered By: Emmanuel Hay on 12-15-2022 Platelets (Bld) [#/Vol] 143 10*3/uL 150-450 [facility] Serum or plasma calcium francine urement (mass/volume)Ordered By: Jose Hay on 12-15-2022 Calcium [Mass/Vol] 8.8 mg/dL 8.5-10.1 [facility] Serum or plasma creatinine m easurement (mass/volume)Ordered By: Jose Hay on 12-15-2022 Creatinine [Mass/Vol] 1.11 mg/dL 0.70-1.30 [facility] Comment on above: The validity of the calculated GFR & GFRAA in patients over 70 years has not been determined. Clinical correlation is essential. Serum or plasma urea nitroge n measurement (mass/volume)Ordered By: Jose Hay on 12-15-2022 Urea nitrogen [Mass/Vol] 15 mg/dL 7-18 [facility] Thin prep Papanicolaou smear with manual screeningOrdered By: Jose Hay on 12-15-2022 Thin prep Papanicolaou smear with manual screening 6 5-15 [facility] Absolute lymphocyte countOrd ered By: Luz Elena Mckeon on 10-13-2022 Lymphocytes Auto (Unsp spec) [#/Vol] 1.21 10*3/uL 0.83-4.51 [facility] Basophil percentageOrdered B y: Luz Elena Mckeon on 10-13-2022 Basophils/100 WBC (Bld) 0.5 % 0-1 [facility] Chloride [Moles/Vol] 106 mmol/L 98-107 [facility] Eosinophils/100 WBC (Bld) 1.4 % 0-5 [facility] Glucose [Mass/Vol] 277 mg/dL 74-106 [facility] Comment on above: Glucose result great er than or equal to 200 mg/dLsuggests DIABETES MELLITUS per A.D.A. criteria. Neutrophils (Bld) [#/Vol] 4.0 10*3/uL 2.0-7.7 [facility] Neutrophils/100 WBC (Bld) 68.5 % 47-70 [facility] Potassium [Moles/Vol] 4.1 mmol/L 3.5-5.1 [facility] Sodium [Moles/Vol] 139 mmol/L 136-145 [facility] WBC (Bld) [#/Vol] 5.8 10*3/uL 4.4-11.0 [facility] Blood erythrocytes count (nu mber/volume)Ordered By: Luz Elena Mckeon on 10-13-2022 RBC (Bld) [#/Vol] 4.66 10*6/uL 4.6-6.2 [facility] Blood hemoglobin measurement (mass/volume)Ordered By: Luz Elena Mckeon on 10-13-2022 Hemoglobin (Bld) [Mass/Vol] 13.6 g/dL 13.0-16.5 [facility] Blood lymphocytes/100 leukoc ytesOrdered By: Luz Elena Mckeno on 10-13-2022 Lymphocytes/100 WBC (Bld) 20.7 % 19-41 [facility] Blood monocytes/100 leukocyt esOrdered By: Luz Elena Mckeon on 10-13-2022 Monocytes/100 WBC (Bld) 8.6 % 0-10 [facility] Blood platelet mean volumeOr dered By: Luz Elena Mckeon on 10-13-2022 Platelet mean volume (Bld) [Entitic vol] 12.6 fL 6.2-12.0 [facility] Determination of erythrocyte mean corpuscular volume (MCV)Ordered By: Luz Elena Mckeon on 10-13-2022 MCV (RBC) [Entitic vol] 89.5 fL 80-94 [facility] Hematocrit Auto (Bld) [Volum e fraction]Ordered By: Luz Elena Mckeon on 10-13-2022 Hematocrit (Bld) [Volume fraction] 41.7 % 40-54 [facility] Laboratory - Chemistry and C hemistry - challengeOrdered By: Luz Elena Mckeon on 10-13-2022 CO2 [Moles/Vol] 27.0 mmol/L 21.0-32.0 [facility] Free T4 [Mass/Vol] 0.77 ng/dL 0.76-1.46 [facility] Magnesium [Mass/Vol] 2.1 mg/dL 1.6-2.[address] [facility] [place] Natriuretic peptide B (Bld) [Mass/Vol] 47.2 pg/mL 0-100 [facility] Urea nitrogen/Creatinine [Mass ratio] 17.2 mg/mg 10-20 [facility] Laboratory - Hematology and Cell countsOrdered By: Luz Elena Mckeon on 10-13-2022 Erythrocyte distribution width (RBC) [Entitic vol] 46.1 fL 35.1-43.9 [facility] Erythrocyte distribution width (RBC) [Ratio] 14.1 % 11.6-14.6 [facility] Immature granulocytes/100 WBC (Bld) 0.300 % 0.0-0.9 [facility] Comment on above: IG% - Immature Granu locytes (promyelocytes, myelocytes and metamyelocytes) > 1% indicates that a LEFT SHIFT is Present. MCH (RBC) [Entitic mass] 29.2 pg 27.0-32.0 [facility] Nucleated RBC/100 WBC (Bld) [Ratio] 0 % 0-5 [facility] MCHC Auto (RBC) [Mass/Vol]Or dered By: Luz Elena Mckeon on 10-13-2022 MCHC (RBC) [Mass/Vol] 32.6 g/dL 32-36 [facility] No Panel InformationOrdered By: Luz Elena Mckeon on 10-13-2022 Estimated GFR (MDRD) Amer 61 mL/min >60 [facility] Comment on above: GFR Calc Estimated GFR (MDRD) Non-Af Amer 50 mL/min >60 [facility] Comment on above: Non- GFR Calc Free Triiodothyronine (T3) pg/dL 2.7 pg/mL 2.18-3.98 [facility] Thyroid Stimulating Hormone (TSH) 4.12 uIU/mL 0.358-3.74 [facility] Platelets bldOrdered By: Loco Mckeon on 10-13-2022 Platelets (Bld) [#/Vol] 126 10*3/uL 150-450 [facility] Serum or plasma calcium francine urement (mass/volume)Ordered By: Luz Elena Mckeon on 10-13-2022 Calcium [Mass/Vol] 8.5 mg/dL 8.5-10.1 [facility] Serum or plasma creatinine m easurement (mass/volume)Ordered By: Luz Elena Mckeon on 10-13-2022 Creatinine [Mass/Vol] 1.45 mg/dL 0.70-1.30 [facility] Comment on above: The validity of the calculated GFR & GFRAA in patients over 70 years has not been determined. Clinical correlation is essential. Serum or plasma urea nitroge n measurement (mass/volume)Ordered By: Luz Elena Mckeon on 10-13-2022 Urea nitrogen [Mass/Vol] 25 mg/dL 7-18 [facility] Thin prep Papanicolaou smear with manual screeningOrdered By: Luz Elena Mckeon on 10-13-2022 Thin prep Papanicolaou smear with manual screening 6 5-15 [facility] COVID-19 virus antigen assay Ordered By: Shaan Santos on 09-21-2022 SARS-CoV-2 (COVID-19) Ag IA.rapid Ql (Resp) [facility] COVID-19 virus antigen assay Ordered By: Dr. Santos on 09-21-2022 SARS-CoV-2 (COVID-19) Ag IA.rapid Ql (Resp) [facility] Glucose Glucometer (BldC) [M ass/Vol]Ordered By: Dr. Santos on 09-21-2022 Glucose [Mass/Vol] 193 mg/dL 74-106 [facility] Comment on above: MANAGEMENT OF PATIEN T CARE PER NURSING PROTOCOL Absolute lymphocyte countOrd ered By: Dr. Leo on 09-18-2022 Lymphocytes Auto (Unsp spec) [#/Vol] 1.83 10*3/uL 0.83-4.51 [facility] Basophil percentageOrdered B y: Dr. Leo on 09-18-2022 Basophils/100 WBC (Bld) 0.3 % 0-1 [facility] Bilirubin [Mass/Vol] 1.20 mg/dL 0.20-1.00 [facility] Comment on above: For patients on eltr ombopag therapy, use of Dimension [place] TBIL is not recommended. Chloride [Moles/Vol] 108 mmol/L 98-107 [facility] Cholesterol [Mass/Vol] 114 mg/dL <200 [facility] Comment on above: <200 mg/dL Desirable 200-240 mg/dL Borderline >240 mg/dL High Risk Eosinophils/100 WBC (Bld) 2.0 % 0-5 [facility] Glucose [Mass/Vol] 87 mg/dL 74-106 [facility] Neutrophils (Bld) [#/Vol] 4.3 10*3/uL 2.0-7.7 [facility] Neutrophils/100 WBC (Bld) 60.9 % 47-70 [facility] Potassium [Moles/Vol] 3.5 mmol/L 3.5-5.1 [facility] Protein [Mass/Vol] 5.9 g/dL 6.4-8.2 [facility] Sodium [Moles/Vol] 142 mmol/L 136-145 [facility] Triglyceride [Mass/Vol] 174 mg/dL <199 [facility] Comment on above: The drugs N-Acetylcy steine and Metamizole may falsely depress this assay.Serum Triglycerides Reference Interval Normal <150 mg/dL Borderline high 150 - 199 mg/dL High 200 - 499 mg/dL Very High > or = 500 mg/dL WBC (Bld) [#/Vol] 7.0 10*3/uL 4.4-11.0 [facility] Blood erythrocytes count (nu mber/volume)Ordered By: Dr. Leo on 09-18-2022 RBC (Bld) [#/Vol] 4.64 10*6/uL 4.6-6.2 [facility] Blood hemoglobin measurement (mass/volume)Ordered By: Dr. Leo on 09-18-2022 Hemoglobin (Bld) [Mass/Vol] 13.2 g/dL 13.0-16.5 [facility] Blood lymphocytes/100 leukoc ytesOrdered By: Dr. Leo on 09-18-2022 Lymphocytes/100 WBC (Bld) 26.1 % 19-41 [facility] Blood monocytes/100 leukocyt esOrdered By: Dr. Leo on 09-18-2022 Monocytes/100 WBC (Bld) 10.4 % 0-10 [facility] Blood platelet mean volumeOr dered By: Dr. Leo on 09-18-2022 Platelet mean volume (Bld) [Entitic vol] 12.3 fL 6.2-12.0 [facility] Determination of erythrocyte mean corpuscular volume (MCV)Ordered By: Dr. Leo on 09-18-2022 MCV (RBC) [Entitic vol] 90.1 fL 80-94 [facility] Hematocrit Auto (Bld) [Volum e fraction]Ordered By: Dr. Leo on 09-18-2022 Hematocrit (Bld) [Volume fraction] 41.8 % 40-54 [facility] Laboratory - Chemistry and C hemistry - challengeOrdered By: Dr. Leo on 09-18-2022 ALP [Catalytic activity/Vol] 113 U/L 45-117 [facility] ALT [Catalytic activity/Vol] 31 U/L 16-61 [facility] CO2 [Moles/Vol] 26.0 mmol/L 21.0-32.0 [facility] Globulin (S) [Mass/Vol] 3.0 g/dL 2.2-4.2 [facility] Urea nitrogen/Creatinine [Mass ratio] 13.4 mg/mg 10-20 [facility] Laboratory - Hematology and Cell countsOrdered By: Dr. Leo on 09-18-2022 Erythrocyte distribution width (RBC) [Entitic vol] 46.9 fL 35.1-43.9 [facility] Erythrocyte distribution width (RBC) [Ratio] 14.4 % 11.6-14.6 [facility] Immature granulocytes/100 WBC (Bld) 0.300 % 0.0-0.9 [facility] Comment on above: IG% - Immature Granu locytes (promyelocytes, myelocytes and metamyelocytes) > 1% indicates that a LEFT SHIFT is Present. MCH (RBC) [Entitic mass] 28.4 pg 27.0-32.0 [facility] Nucleated RBC/100 WBC (Bld) [Ratio] 0 % 0-5 [facility] MCHC Auto (RBC) [Mass/Vol]Or dered By: Dr. Leo on 09-18-2022 MCHC (RBC) [Mass/Vol] 31.6 g/dL 32-36 [facility] No Panel InformationOrdered By: Dr. Leo on 09-18-2022 Estimated Creatinine Clearance Calc 47.13 ml/min [facility] Estimated GFR (MDRD) Amer 71 mL/min >60 [facility] Comment on above: GFR Calc Estimated GFR (MDRD) Non-Af Amer 58 mL/min >60 [facility] Comment on above: Non- GFR Calc Thyroid Stimulating Hormone (TSH) 3.64 uIU/mL 0.358-3.74 [facility] Troponin I High Sensitivity 8 pg/mL 3.0-78.0 [facility] Comment on above: Please Note: [place] t Units and Gender Specific Reference Ranges. For more information see Policy Stat Procedure [place] High Sensitivity Troponin (TNIH) and attachments. Platelets bldOrdered By: Dr. Leo on 09-18-2022 Platelets (Bld) [#/Vol] 131 10*3/uL 150-450 [facility] Serum or plasma albumin francine urement (mass/volume)Ordered By: Dr. Leo on 09-18-2022 Albumin [Mass/Vol] 2.9 g/dL 3.2-5.0 [facility] Serum or plasma albumin/glob ulin mass ratioOrdered By: Dr. Leo on 09-18-2022 Albumin/Globulin [Mass ratio] 1.0 {ratio} 0.9-2.4 [facility] Serum or plasma calcium francine urement (mass/volume)Ordered By: Dr. Leo on 09-18-2022 Calcium [Mass/Vol] 7.6 mg/dL 8.5-10.1 [facility] Serum or plasma cholesterol in HDL measurement (mass/volume)Ordered By: Dr. Leo on 09-18-2022 Cholesterol in HDL [Mass/Vol] 36 mg/dL >40 [facility] Comment on above: The drugs N-Acetylcy steine and Metamizole may falsely depress this assay. Reference Range HDL <40 mg/dL Low HDL Cholesterol HDL >or= 60 mg/dL High HDL Cholesterol Serum or plasma cholesterol in VLDL measurement (mass/volume)Ordered By: Dr. Leo on 09-18-2022 Cholesterol in VLDL [Mass/Vol] 35 mg/dL 5-40 [facility] Serum or plasma creatinine m easurement (mass/volume)Ordered By: Dr. Leo on 09-18-2022 Creatinine [Mass/Vol] 1.27 mg/dL 0.70-1.30 [facility] Comment on above: The validity of the calculated GFR & GFRAA in patients over 70 years has not been determined. Clinical correlation is essential. Serum or plasma low density lipoprotein (LDL) cholesterol measurement (mass/volume)Ordered By: Dr. Leo on 09-18-2022 Cholesterol in LDL [Mass/Vol] 43 mg/dL 0-130 [facility] Serum or plasma urea nitroge n measurement (mass/volume)Ordered By: Dr. Leo on 09-18-2022 Urea nitrogen [Mass/Vol] 17 mg/dL 7-18 [facility] Thin prep Papanicolaou smear with manual screeningOrdered By: Dr. Leo on 09-18-2022 Thin prep Papanicolaou smear with manual screening 21 U/L 15-37 [facility] Thin prep Papanicolaou smear with manual screening 8 5-15 [facility] Whole blood hemoglobin A1c/t otal hemoglobin ratio (mass fraction)Ordered By: Dr. Leo on 09-18-2022 HbA1c (Bld) [Mass fraction] 7.7 % 3.8-5.6 [facility] Comment on above: Normal < 5.7 % Predi abetic 5.7 - 6.4 % Diabetic >or= 6.5 % Please note range changes. INR in Blood by Coagulation assayOrdered By: Dr. Hall on 09-17-2022 INR Coag (Bld) [Relative time] 0.9 {INR} [facility] Laboratory - Chemistry and C hemistry - challengeOrdered By: Dr. Leo on 09-17-2022 Magnesium [Mass/Vol] 2.3 mg/dL 1.6-2.6 [facility] Laboratory - CoagulationOrde red By: Dr. Hall on 09-17-2022 aPTT Coag (Bld) [Time] 32.1 s 24.1-36.2 [facility] PT Coag (PPP) [Time] 12.3 s 11.7-14.9 [facility] Basophil percentageOrdered B y: Dr. Hay on 09-01-2022 Bilirubin [Mass/Vol] 0.70 mg/dL 0.20-1.00 [facility] Comment on above: For patients on eltr ombopag therapy, use of Dimension [place] TBIL is not recommended. Chloride [Moles/Vol] 112 mmol/L 98-107 [facility] Glucose [Mass/Vol] 151 mg/dL 74-106 [facility] Comment on above: Fasting Glucose resu lt greater than or equal to 126 mg/dL suggests DIABETES MELLITUS per A.D.A. criteria. Potassium [Moles/Vol] 3.9 mmol/L 3.5-5.1 [facility] Protein [Mass/Vol] 5.7 g/dL 6.4-8.2 [facility] Sodium [Moles/Vol] 142 mmol/L 136-145 [facility] WBC (Bld) [#/Vol] 4.7 10*3/uL 4.4-11.0 [facility] Blood erythrocytes count (nu mber/volume)Ordered By: Dr. Hay on 09-01-2022 RBC (Bld) [#/Vol] 4.60 10*6/uL 4.6-6.2 [facility] Blood hemoglobin measurement (mass/volume)Ordered By: Dr. Hay on 09-01-2022 Hemoglobin (Bld) [Mass/Vol] 13.0 g/dL 13.0-16.5 [facility] Blood platelet mean volumeOr dered By: Dr. Hay on 09-01-2022 Platelet mean volume (Bld) [Entitic vol] 12.8 fL 6.2-12.0 [facility] Determination of erythrocyte mean corpuscular volume (MCV)Ordered By: Dr. Hay on 09-01-2022 MCV (RBC) [Entitic vol] 89.1 fL 80-94 [facility] Hematocrit Auto (Bld) [Volum e fraction]Ordered By: Dr. Hay on 09-01-2022 Hematocrit (Bld) [Volume fraction] 41.0 % 40-54 [facility] Laboratory - Chemistry and C hemistry - challengeOrdered By: Dr. Hay on 09-01-2022 ALP [Catalytic activity/Vol] 149 U/L 45-117 [facility] ALT [Catalytic activity/Vol] 35 U/L 16-61 [facility] CO2 [Moles/Vol] 27.0 mmol/L 21.0-32.0 [facility] Globulin (S) [Mass/Vol] 2.9 g/dL 2.2-4.2 [facility] Urea nitrogen/Creatinine [Mass ratio] 15.8 mg/mg 10-20 [facility] Laboratory - Hematology and Cell countsOrdered By: Dr. Hay on 09-01-2022 Erythrocyte distribution width (RBC) [Entitic vol] 44.1 fL 35.1-43.9 [facility] Erythrocyte distribution width (RBC) [Ratio] 13.5 % 11.6-14.6 [facility] MCH (RBC) [Entitic mass] 28.3 pg 27.0-32.0 [facility] MCHC Auto (RBC) [Mass/Vol]Or dered By: Dr. Hay on 09-01-2022 MCHC (RBC) [Mass/Vol] 31.7 g/dL 32-36 [facility] No Panel InformationOrdered By: Dr. Hay on 09-01-2022 Estimated Creatinine Clearance Calc 46.51 ml/min [facility] Estimated GFR (MDRD) Amer 67 mL/min >60 [facility] Comment on above: GFR Calc Estimated GFR (MDRD) Non-Af Amer 55 mL/min >60 [facility] Comment on above: Non- GFR Calc Platelets bldOrdered By: Dr. Hay on 09-01-2022 Platelets (Bld) [#/Vol] 106 10*3/uL 150-450 [facility] Serum or plasma albumin francine urement (mass/volume)Ordered By: Dr. Hay on 09-01-2022 Albumin [Mass/Vol] 2.8 g/dL 3.2-5.0 [facility] Serum or plasma albumin/glob ulin mass ratioOrdered By: Dr. Hay on 09-01-2022 Albumin/Globulin [Mass ratio] 1.0 {ratio} 0.9-2.4 [facility] Serum or plasma calcium francine urement (mass/volume)Ordered By: Dr. Hay on 09-01-2022 Calcium [Mass/Vol] 8.0 mg/dL 8.5-10.1 [facility] Serum or plasma creatinine m easurement (mass/volume)Ordered By: Dr. Hay on 09-01-2022 Creatinine [Mass/Vol] 1.33 mg/dL 0.70-1.30 [facility] Comment on above: The validity of the calculated GFR & GFRAA in patients over 70 years has not been determined. Clinical correlation is essential. Serum or plasma urea nitroge n measurement (mass/volume)Ordered By: Dr. Hay on 09-01-2022 Urea nitrogen [Mass/Vol] 21 mg/dL 7-18 [facility] Thin prep Papanicolaou smear with manual screeningOrdered By: Dr. Hay on 09-01-2022 Thin prep Papanicolaou smear with manual screening 21 U/L 15-37 [facility] Thin prep Papanicolaou smear with manual screening 3 5-15 [facility] No Panel InformationOrdered By: Dr. Hay on 08-31-2022 Activated Clotting Time 275 sec 74-137 [facility] Basophil percentageOrdered B y: Dr. Hay on 08-19-2022 Chloride [Moles/Vol] 108 mmol/L 98-107 [facility] Glucose [Mass/Vol] 158 mg/dL 74-106 [facility] Comment on above: Fasting Glucose resu lt greater than or equal to 126 mg/dL suggests DIABETES MELLITUS per A.D.A. criteria. Potassium [Moles/Vol] 4.3 mmol/L 3.5-5.1 [facility] Sodium [Moles/Vol] 137 mmol/L 136-145 [facility] WBC (Bld) [#/Vol] 8.2 10*3/uL 4.4-11.0 [facility] Blood erythrocytes count (nu mber/volume)Ordered By: Dr. Hay on 08-19-2022 RBC (Bld) [#/Vol] 5.05 10*6/uL 4.6-6.2 [facility] Blood hemoglobin measurement (mass/volume)Ordered By: Dr. Hay on 08-19-2022 Hemoglobin (Bld) [Mass/Vol] 14.3 g/dL 13.0-16.5 [facility] Blood platelet mean volumeOr dered By: Dr. Hay on 08-19-2022 Platelet mean volume (Bld) [Entitic vol] 12.5 fL 6.2-12.0 [facility] Determination of erythrocyte mean corpuscular volume (MCV)Ordered By: Dr. Hay on 08-19-2022 MCV (RBC) [Entitic vol] 88.3 fL 80-94 [facility] Hematocrit Auto (Bld) [Volum e fraction]Ordered By: Dr. Hay on 08-19-2022 Hematocrit (Bld) [Volume fraction] 44.6 % 40-54 [facility] INR in Blood by Coagulation assayOrdered By: Dr. Hay on 08-19-2022 INR Coag (Bld) [Relative time] 1.1 {INR} [facility] Laboratory - Chemistry and C hemistry - challengeOrdered By: Dr. Hay on 08-19-2022 CO2 [Moles/Vol] 25.0 mmol/L 21.0-32.0 [facility] Urea nitrogen/Creatinine [Mass ratio] 12.0 mg/mg 10-20 [facility] Laboratory - CoagulationOrde red By: Dr. Hay on 08-19-2022 aPTT Coag (Bld) [Time] 30.9 s 24.1-36.2 [facility] PT Coag (PPP) [Time] 13.4 s 11.7-14.9 [facility] Laboratory - Hematology and Cell countsOrdered By: Dr. Hay on 08-19-2022 Erythrocyte distribution width (RBC) [Entitic vol] 44.8 fL 35.1-43.9 [facility] Erythrocyte distribution width (RBC) [Ratio] 13.9 % 11.6-14.6 [facility] MCH (RBC) [Entitic mass] 28.3 pg 27.0-32.0 [facility] MCHC Auto (RBC) [Mass/Vol]Or dered By: Dr. Hay on 08-19-2022 MCHC (RBC) [Mass/Vol] 32.1 g/dL 32-36 [facility] No Panel InformationOrdered By: Dr. Hay on 08-19-2022 Estimated GFR (MDRD) Amer 72 mL/min >60 [facility] Comment on above: GFR Calc Estimated GFR (MDRD) Non-Af Amer 60 mL/min >60 [facility] Comment on above: Non- GFR Calc Platelets bldOrdered By: Dr. Hay on 08-19-2022 Platelets (Bld) [#/Vol] 151 10*3/uL 150-450 [facility] Serum or plasma calcium francine urement (mass/volume)Ordered By: Dr. Hay on 08-19-2022 Calcium [Mass/Vol] 9.0 mg/dL 8.5-10.1 [facility] Serum or plasma creatinine m easurement (mass/volume)Ordered By: Dr. Hay on 08-19-2022 Creatinine [Mass/Vol] 1.25 mg/dL 0.70-1.30 [facility] Comment on above: The validity of the calculated GFR & GFRAA in patients over 70 years has not been determined. Clinical correlation is essential. Serum or plasma urea nitroge n measurement (mass/volume)Ordered By: Dr. Hay on 08-19-2022 Urea nitrogen [Mass/Vol] 15 mg/dL 7-18 [facility] Thin prep Papanicolaou smear with manual screeningOrdered By: Dr. Hay on 08-19-2022 Thin prep Papanicolaou smear with manual screening 4 5-15 [facility] Basophil percentageOrdered B y: Dr. Rodriguez on 06-11-2022 Chloride [Moles/Vol] 102 mmol/L 98-107 [facility] Glucose [Mass/Vol] 274 mg/dL 74-106 [facility] Comment on above: Glucose result great er than or equal to 200 mg/dLsuggests DIABETES MELLITUS per A.D.A. criteria. Potassium [Moles/Vol] 4.3 mmol/L 3.5-5.1 [facility] Sodium [Moles/Vol] 136 mmol/L 136-145 [facility] Laboratory - Chemistry and C hemistry - challengeOrdered By: Dr. Rodriguez on 06-11-2022 CO2 [Moles/Vol] 24.0 mmol/L 21.0-32.0 [facility] Magnesium [Mass/Vol] 2.2 mg/dL 1.6-2.6 [facility] Urea nitrogen/Creatinine [Mass ratio] 15.7 mg/mg 10-20 [facility] No Panel InformationOrdered By: Dr. Rodriguez on 06-11-2022 Estimated GFR (MDRD) Amer 67 mL/min >60 [facility] Comment on above: GFR Calc Estimated GFR (MDRD) Non-Af Amer 55 mL/min >60 [facility] Comment on above: Non- GFR Calc Serum or plasma calcium francine urement (mass/volume)Ordered By: Dr. Rodriguez on 06-11-2022 Calcium [Mass/Vol] 8.7 mg/dL 8.5-10.1 [facility] Serum or plasma creatinine m easurement (mass/volume)Ordered By: Dr. Rodriguez on 06-11-2022 Creatinine [Mass/Vol] 1.34 mg/dL 0.70-1.30 [facility] Comment on above: The validity of the calculated GFR & GFRAA in patients over 70 years has not been determined. Clinical correlation is essential. Serum or plasma urea nitroge n measurement (mass/volume)Ordered By: Dr. Rodriguez on 06-11-2022 Urea nitrogen [Mass/Vol] 21 mg/dL 7-18 [facility] Thin prep Papanicolaou smear with manual screeningOrdered By: Dr. Rodriguez on 06-11-2022 Thin prep Papanicolaou smear with manual screening 10 5-15 [facility] Absolute lymphocyte countOrd ered By: Luz Elena Mckeon on 04-14-2022 Lymphocytes Auto (Unsp spec) [#/Vol] 1.60 10*3/uL 0.83-4.51 [facility] Basophil percentageOrdered B y: Luz Elena Mckeon on 04-14-2022 Basophils/100 WBC (Bld) 0.3 % 0-1 [facility] Chloride [Moles/Vol] 106 mmol/L 98-107 [facility] Eosinophils/100 WBC (Bld) 1.5 % 0-5 [facility] Glucose [Mass/Vol] 211 mg/dL 74-106 [facility] Comment on above: Glucose result great er than or equal to 200 mg/dLsuggests DIABETES MELLITUS per A.D.A. criteria. Neutrophils (Bld) [#/Vol] 3.8 10*3/uL 2.0-7.7 [facility] Neutrophils/100 WBC (Bld) 61.3 % 47-70 [facility] Potassium [Moles/Vol] 4.4 mmol/L 3.5-5.1 [facility] Sodium [Moles/Vol] 136 mmol/L 136-145 [facility] WBC (Bld) [#/Vol] 6.2 10*3/uL 4.4-11.0 [facility] Blood erythrocytes count (nu mber/volume)Ordered By: Luz Elena Mckeon on 04-14-2022 RBC (Bld) [#/Vol] 4.87 10*6/uL 4.6-6.2 [facility] Blood hemoglobin measurement (mass/volume)Ordered By: Luz Elena Mckeon on 04-14-2022 Hemoglobin (Bld) [Mass/Vol] 14.1 g/dL 13.0-16.5 [facility] Blood lymphocytes/100 leukoc ytesOrdered By: Luz Elena Mckeon on 04-14-2022 Lymphocytes/100 WBC (Bld) 25.8 % 19-41 [facility] Blood monocytes/100 leukocyt esOrdered By: Luz Elena Mckeon on 04-14-2022 Monocytes/100 WBC (Bld) 10.8 % 0-10 [facility] Blood platelet mean volumeOr dered By: Luz Elena Mckeon on 04-14-2022 Platelet mean volume (Bld) [Entitic vol] 12.8 fL 6.2-12.0 [facility] Determination of erythrocyte mean corpuscular volume (MCV)Ordered By: Luz Elena Mckeon on 04-14-2022 MCV (RBC) [Entitic vol] 88.1 fL 80-94 [facility] Hematocrit Auto (Bld) [Volum e fraction]Ordered By: Luz Elena Mckeon on 04-14-2022 Hematocrit (Bld) [Volume fraction] 42.9 % 40-54 [facility] Laboratory - Chemistry and C hemistry - challengeOrdered By: Luz Elena Mckeon on 04-14-2022 CO2 [Moles/Vol] 25.0 mmol/L 21.0-32.0 [facility] Natriuretic peptide B (Bld) [Mass/Vol] 54.2 pg/mL 0-100 [facility] Urea nitrogen/Creatinine [Mass ratio] 13.3 mg/mg 10-20 [facility] Laboratory - Hematology and Cell countsOrdered By: Luz Elena Mckeon on 04-14-2022 Erythrocyte distribution width (RBC) [Entitic vol] 44.7 fL 35.1-43.9 [facility] Erythrocyte distribution width (RBC) [Ratio] 13.9 % 11.6-14.6 [facility] Immature granulocytes/100 WBC (Bld) 0.300 % 0.0-0.9 [facility] Comment on above: IG% - Immature Granu locytes (promyelocytes, myelocytes and metamyelocytes) > 1% indicates that a LEFT SHIFT is Present. MCH (RBC) [Entitic mass] 29.0 pg 27.0-32.0 [facility] Nucleated RBC/100 WBC (Bld) [Ratio] 0 % 0-5 [facility] MCHC Auto (RBC) [Mass/Vol]Or dered By: Luz Elena Mckeon on 04-14-2022 MCHC (RBC) [Mass/Vol] 32.9 g/dL 32-36 [facility] No Panel InformationOrdered By: Luz Elena Mckeon on 04-14-2022 Estimated GFR (MDRD) Amer 81 mL/min >60 [facility] Comment on above: GFR Calc Estimated GFR (MDRD) Non-Af Amer 67 mL/min >60 [facility] Comment on above: Non- GFR Calc Platelets bldOrdered By: Loco Mckeon on 04-14-2022 Platelets (Bld) [#/Vol] 150 10*3/uL 150-450 [facility] Serum or plasma calcium francine urement (mass/volume)Ordered By: Luz Elena Mckeon on 04-14-2022 Calcium [Mass/Vol] 8.4 mg/dL 8.5-10.1 [facility] Serum or plasma creatinine m easurement (mass/volume)Ordered By: Luz Elena Mckeon on 04-14-2022 Creatinine [Mass/Vol] 1.13 mg/dL 0.70-1.30 [facility] Comment on above: The validity of the calculated GFR & GFRAA in patients over 70 years has not been determined. Clinical correlation is essential. Serum or plasma urea nitroge n measurement (mass/volume)Ordered By: Luz Elena Mckeon on 04-14-2022 Urea nitrogen [Mass/Vol] 15 mg/dL 7-18 [facility] Thin prep Papanicolaou smear with manual screeningOrdered By: Luz Elena Mckeon on 04-14-2022 Thin prep Papanicolaou smear with manual screening 5 5-15 [facility] Laboratory - Microbiology an d Antimicrobial susceptibilityon 03-27-2022 SARS-CoV-2 (COVID-19) RNA REAGAN+probe Ql (Unsp spec) Detected [facility] No Panel Informationon 03-27 Influenza Types A,B Rapid (Clinic) Not detected [facility] Absolute lymphocyte counton 11-21-2021 Lymphocytes Auto (Unsp spec) [#/Vol] 1.23 10*3/uL 0.83-4.51 [facility] Work Phone: Basophil percentageon 2021 Basophils/100 WBC (Bld) 0.3 % 0-1 [facility] Work Phone: Chloride [Moles/Vol] 106 mmol/L 98-107 [facility] Work Phone: Eosinophils/100 WBC (Bld) 1.2 % 0-5 [facility] Work Phone: Glucose [Mass/Vol] 166 mg/dL 74-106 [facility] Work Phone: Comment on above: Fasting Glucose resu lt greater than or equal to 126 mg/dL suggests DIABETES MELLITUS per A.D.A. criteria. Neutrophils (Bld) [#/Vol] 4.7 10*3/uL 2.0-7.7 [facility] Work Phone: Neutrophils/100 WBC (Bld) 69.8 % 47-70 [facility] Work Phone: Potassium [Moles/Vol] 4.2 mmol/L 3.5-5.1 [facility] Work Phone: Sodium [Moles/Vol] 140 mmol/L 136-145 [facility] Work Phone: WBC (Bld) [#/Vol] 6.7 10*3/uL 4.4-11.0 [facility] Work Phone: Blood erythrocytes count (nu mber/volume)on 11-21-2021 RBC (Bld) [#/Vol] 5.06 10*6/uL 4.6-6.2 [facility] Work Phone: Blood hemoglobin measurement (mass/volume)on 11-21-2021 Hemoglobin (Bld) [Mass/Vol] 14.3 g/dL 13.0-16.5 [facility] Work Phone: [phone] Blood lymphocytes/100 leukoc yteson 11-21-2021 Lymphocytes/100 WBC (Bld) 18.4 % 19-41 [facility] Work Phone: [phone] Blood monocytes/100 leukocyt eson 11-21-2021 Monocytes/100 WBC (Bld) 9.9 % 0-10 [facility] Work Phone: [phone] Blood platelet mean volumeon 11-21-2021 Platelet mean volume (Bld) [Entitic vol] 12.4 fL 6.2-12.0 [facility] Work Phone: [phone] Determination of erythrocyte mean corpuscular volume (MCV)on 11-21-2021 MCV (RBC) [Entitic vol] 89.1 fL 80-94 [facility] Work Phone: [phone] Hematocrit Auto (Bld) [Volum e fraction]on 11-21-2021 Hematocrit (Bld) [Volume fraction] 45.1 % 40-54 [facility] Work Phone: [phone] Laboratory - Chemistry and C hemistry - challengeon 11-21-2021 CO2 [Moles/Vol] 27.0 mmol/L 21.0-32.0 [facility] Work Phone: [phone] Natriuretic peptide B (Bld) [Mass/Vol] 60.9 pg/mL 0-100 [facility] Work Phone: [phone] Urea nitrogen/Creatinine [Mass ratio] 12.9 mg/mg 10-20 [facility] Work Phone: [phone] Laboratory - Hematology and Cell countson 11-21-2021 Erythrocyte distribution width (RBC) [Entitic vol] 45.1 fL 35.1-43.9 [facility] Work Phone: [phone] Erythrocyte distribution width (RBC) [Ratio] 14.0 % 11.6-14.6 [facility] Work Phone: [phone] Immature granulocytes/100 WBC (Bld) 0.400 % 0.0-0.9 [facility] Work Phone: Comment on above: IG% - Immature Granu locytes (promyelocytes, myelocytes and metamyelocytes) > 1% indicates that a LEFT SHIFT is Present. MCH (RBC) [Entitic mass] 28.3 pg 27.0-32.0 [facility] Work Phone: [phone] Nucleated RBC/100 WBC (Bld) [Ratio] 0 % 0-5 [facility] Work Phone: [phone] MCHC Auto (RBC) [Mass/Vol]on 11-21-2021 MCHC (RBC) [Mass/Vol] 31.7 g/dL 32-36 [facility] Work Phone: No Panel Informationon 11-21 Estimated GFR (MDRD) Amer 63 mL/min >60 [facility] Work Phone: Comment on above: GFR Calc Estimated GFR (MDRD) Non-Af Amer 52 mL/min >60 [facility] Work Phone: Comment on above: Non- GFR Calc Platelets bldon 11-21-2021 Platelets (Bld) [#/Vol] 135 10*3/uL 150-450 [facility] Work Phone: [phone] Serum or plasma calcium francine urement (mass/volume)on 11-21-2021 Calcium [Mass/Vol] 8.9 mg/dL 8.5-10.1 [facility] Work Phone: [phone] Serum or plasma creatinine m easurement (mass/volume)on 11-21-2021 Creatinine [Mass/Vol] 1.40 mg/dL 0.70-1.30 [facility] Work Phone: [phone] Comment on above: The validity of the calculated GFR & GFRAA in patients over 70 years has not been determined. Clinical correlation is essential. Serum or plasma urea nitroge n measurement (mass/volume)on 11-21-2021 Urea nitrogen [Mass/Vol] 18 mg/dL 7-18 [facility] Work Phone: Thin prep Papanicolaou smear with manual screeningon 11-21-2021 Thin prep Papanicolaou smear with manual screening 7 5-15 [facility] Work Phone: Absolute lymphocyte counton 11-16-2021 Lymphocytes Auto (Unsp spec) [#/Vol] 2.06 10*3/uL 0.83-4.51 [facility] Work Phone: Basophil percentageon 2021 Basophils/100 WBC (Bld) 0.3 % 0-1 [facility] Work Phone: Chloride [Moles/Vol] 104 mmol/L 98-107 [facility] Work Phone: Eosinophils/100 WBC (Bld) 1.4 % 0-5 [facility] Work Phone: Glucose [Mass/Vol] 170 mg/dL 74-106 [facility] Work Phone: Comment on above: Fasting Glucose resu lt greater than or equal to 126 mg/dL suggests DIABETES MELLITUS per A.D.A. criteria. Neutrophils (Bld) [#/Vol] 5.0 10*3/uL 2.0-7.7 [facility] Work Phone: Neutrophils/100 WBC (Bld) 62.3 % 47-70 [facility] Work Phone: Potassium [Moles/Vol] 4.4 mmol/L 3.5-5.1 [facility] Work Phone: Comment on above: Slight Hemolysis, Re sult may be falsely increased. Sodium [Moles/Vol] 137 mmol/L 136-145 [facility] Work Phone: WBC (Bld) [#/Vol] 7.9 10*3/uL 4.4-11.0 [facility] Work Phone: Blood erythrocytes count (nu mber/volume)on 11-16-2021 RBC (Bld) [#/Vol] 5.42 10*6/uL 4.6-6.2 [facility] Work Phone: Blood hemoglobin measurement (mass/volume)on 11-16-2021 Hemoglobin (Bld) [Mass/Vol] 15.6 g/dL 13.0-16.5 [facility] Work Phone: Blood lymphocytes/100 leukoc yteson 11-16-2021 Lymphocytes/100 WBC (Bld) 26.0 % 19-41 [facility] Work Phone: [phone] Blood monocytes/100 leukocyt eson 11-16-2021 Monocytes/100 WBC (Bld) 9.6 % 0-10 [facility] Work Phone: Blood platelet mean volumeon 11-16-2021 Platelet mean volume (Bld) [Entitic vol] 12.9 fL 6.2-12.0 [facility] Work Phone: Determination of erythrocyte mean corpuscular volume (MCV)on 11-16-2021 MCV (RBC) [Entitic vol] 89.3 fL 80-94 [facility] Work Phone: Hematocrit Auto (Bld) [Volum e fraction]on 11-16-2021 Hematocrit (Bld) [Volume fraction] 48.4 % 40-54 [facility] Work Phone: Laboratory - Chemistry and C hemistry - challengeon 11-16-2021 CO2 [Moles/Vol] 27.0 mmol/L 21.0-32.0 [facility] Work Phone: Urea nitrogen/Creatinine [Mass ratio] 11.6 mg/mg 10-20 [facility] Work Phone: [phone] Laboratory - Hematology and Cell countson 11-16-2021 Erythrocyte distribution width (RBC) [Entitic vol] 44.5 fL 35.1-43.9 [facility] Work Phone: [phone] Erythrocyte distribution width (RBC) [Ratio] 13.8 % 11.6-14.6 [facility] Work Phone: [phone] Immature granulocytes/100 WBC (Bld) 0.400 % 0.0-0.9 [facility] Work Phone: [phone] Comment on above: IG% - Immature Granu locytes (promyelocytes, myelocytes and metamyelocytes) > 1% indicates that a LEFT SHIFT is Present. MCH (RBC) [Entitic mass] 28.8 pg 27.0-32.0 [facility] Work Phone: [phone] Nucleated RBC/100 WBC (Bld) [Ratio] 0 % 0-5 [facility] Work Phone: [phone] MCHC Auto (RBC) [Mass/Vol]on 11-16-2021 MCHC (RBC) [Mass/Vol] 32.2 g/dL 32-36 [facility] Work Phone: [phone] Panel Informationon 11-16 Troponin I High Sensitivity 7 pg/mL 3.0-78.0 [facility] Work Phone: [phone] Comment on above: Please Note: [place] Units and Gender Specific Reference Ranges. For more information see Policy Stat Procedure [place] High Sensitivity Troponin (TNIH) and attachments. Estimated Creatinine Clearance Calc 45.54 ml/min [facility] Work Phone: [phone] Estimated GFR (MDRD) Amer 64 mL/min >60 [facility] Work Phone: [phone] Comment on above: GFR Calc Estimated GFR (MDRD) Non-Af Amer 53 mL/min >60 [facility] Work Phone: [phone] Comment on above: Non- GFR Calc Platelets bldon 11-16-2021 Platelets (Bld) [#/Vol] 142 10*3/uL 150-450 [facility] Work Phone: [phone] Serum or plasma calcium francine urement (mass/volume)on 11-16-2021 Calcium [Mass/Vol] 9.2 mg/dL 8.5-10.1 [facility] Work Phone: Serum or plasma creatinine m easurement (mass/volume)on 11-16-2021 Creatinine [Mass/Vol] 1.38 mg/dL 0.70-1.30 [facility] Work Phone: Comment on above: The validity of the calculated GFR & GFRAA in patients over 70 years has not been determined. Clinical correlation is essential. Serum or plasma urea nitroge n measurement (mass/volume)on 11-16-2021 Urea nitrogen [Mass/Vol] 16 mg/dL 7-18 [facility] Work Phone: [phone] Thin prep Papanicolaou smear with manual screeningon 11-16-2021 Thin prep Papanicolaou smear with manual screening 6 5-15 [facility] Work Phone: Basophil percentageon 2021 Chloride [Moles/Vol] 105 mmol/L 98-107 [facility] Work Phone: Glucose [Mass/Vol] 246 mg/dL 74-106 [facility] Work Phone: Comment on above: Glucose result great er than or equal to 200 mg/dLsuggests DIABETES MELLITUS per A.D.A. criteria. Potassium [Moles/Vol] 4.2 mmol/L 3.5-5.1 [facility] Work Phone: Sodium [Moles/Vol] 137 mmol/L 136-145 [facility] Work Phone: Laboratory - Chemistry and C hemistry - challengeon 10-28-2021 CO2 [Moles/Vol] 24.0 mmol/L 21.0-32.0 [facility] Work Phone: [phone] Urea nitrogen/Creatinine [Mass ratio] 15.6 mg/mg 10-20 [facility] Work Phone: [phone] Panel Informationon 10-28 Estimated GFR (MDRD) Amer 74 mL/min >60 [facility] Work Phone: Comment on above: GFR Calc Estimated GFR (MDRD) Non-Af Amer 61 mL/min >60 [facility] Work Phone: Comment on above: Non- GFR Calc Serum or plasma calcium francine urement (mass/volume)on 10-28-2021 Calcium [Mass/Vol] 8.9 mg/dL 8.5-10.1 [facility] Work Phone: Serum or plasma creatinine m easurement (mass/volume)on 10-28-2021 Creatinine [Mass/Vol] 1.22 mg/dL 0.70-1.30 [facility] Work Phone: Comment on above: The validity of the calculated GFR & GFRAA in patients over 70 years has not been determined. Clinical correlation is essential. Serum or plasma urea nitroge n measurement (mass/volume)on 10-28-2021 Urea nitrogen [Mass/Vol] 19 mg/dL 7-18 [facility] Work Phone: [phone] Thin prep Papanicolaou smear with manual screeningon 10-28-2021 Thin prep Papanicolaou smear with manual screening 8 5-15 [facility] Work Phone: [phone] Whole blood hemoglobin A1c/t otal hemoglobin ratio (mass fraction)on 10-28-2021 HbA1c (Bld) [Mass fraction] 7.7 % 3.8-5.6 [facility] Work Phone: Comment on above: Normal < 5.7 % Predi abetic 5.7 - 6.4 % Diabetic >or= 6.5 % Please note range changes. Absolute lymphocyte counton 09-16-2021 Lymphocytes Auto (Unsp spec) [#/Vol] 1.24 10*3/uL 0.83-4.51 [facility] Work Phone: [phone] Basophil percentageon 2021 Basophils/100 WBC (Bld) 0.5 % 0-1 [facility] Work Phone: [phone] Chloride [Moles/Vol] 107 mmol/L 98-107 [facility] Work Phone: [phone] Eosinophils/100 WBC (Bld) 1.7 % 0-5 [facility] Work Phone: [phone] Glucose [Mass/Vol] 134 mg/dL 74-106 [facility] Work Phone: Comment on above: Fasting Glucose resu lt greater than or equal to 126 mg/dL suggests DIABETES MELLITUS per A.D.A. criteria. Neutrophils (Bld) [#/Vol] 4.4 10*3/uL 2.0-7.7 [facility] Work Phone: Neutrophils/100 WBC (Bld) 68.0 % 47-70 [facility] Work Phone: Potassium [Moles/Vol] 4.3 mmol/L 3.5-5.1 [facility] Work Phone: Sodium [Moles/Vol] 139 mmol/L 136-145 [facility] Work Phone: WBC (Bld) [#/Vol] 6.4 10*3/uL 4.4-11.0 [facility] Work Phone: Blood erythrocytes count (nu mber/volume)on 09-16-2021 RBC (Bld) [#/Vol] 4.84 10*6/uL 4.6-6.2 [facility] Work Phone: Blood hemoglobin measurement (mass/volume)on 09-16-2021 Hemoglobin (Bld) [Mass/Vol] 14.1 g/dL 13.0-16.5 [facility] Work Phone: Blood lymphocytes/100 leukoc yteson 09-16-2021 Lymphocytes/100 WBC (Bld) 19.3 % 19-41 [facility] Work Phone: Blood monocytes/100 leukocyt eson 09-16-2021 Monocytes/100 WBC (Bld) 10.0 % 0-10 [facility] Work Phone: Blood platelet mean volumeon 09-16-2021 Platelet mean volume (Bld) [Entitic vol] 12.7 fL 6.2-12.0 [facility] Work Phone: [phone] Determination of erythrocyte mean corpuscular volume (MCV)on 09-16-2021 MCV (RBC) [Entitic vol] 90.1 fL 80-94 [facility] Work Phone: [phone] Hematocrit Auto (Bld) [Volum e fraction]on 09-16-2021 Hematocrit (Bld) [Volume fraction] 43.6 % 40-54 [facility] Work Phone: [phone] Laboratory - Chemistry and C hemistry - challengeon 09-16-2021 CO2 [Moles/Vol] 27.0 mmol/L 21.0-32.0 [facility] Work Phone: [phone] Natriuretic peptide B (Bld) [Mass/Vol] 80.9 pg/mL 0-100 [facility] Work Phone: [phone] Urea nitrogen/Creatinine [Mass ratio] 13.7 mg/mg 10-20 [facility] Work Phone: [phone] Laboratory - Hematology and Cell countson 09-16-2021 Erythrocyte distribution width (RBC) [Entitic vol] 46.2 fL 35.1-43.9 [facility] Work Phone: [phone] Erythrocyte distribution width (RBC) [Ratio] 13.9 % 11.6-14.6 [facility] Work Phone: [phone] Immature granulocytes/100 WBC (Bld) 0.500 % 0.0-0.9 [facility] Work Phone: [phone] Comment on above: IG% - Immature Granu locytes (promyelocytes, myelocytes and metamyelocytes) > 1% indicates that a LEFT SHIFT is Present. MCH (RBC) [Entitic mass] 29.1 pg 27.0-32.0 [facility] Work Phone: [phone] Nucleated RBC/100 WBC (Bld) [Ratio] 0 % 0-5 [facility] Work Phone: [phone] MCHC Auto (RBC) [Mass/Vol]on 09-16-2021 MCHC (RBC) [Mass/Vol] 32.3 g/dL 32-36 [facility] Work Phone: [phone] Panel Informationon 09-16 Estimated GFR (MDRD) Amer 73 mL/min >60 [facility] Work Phone: Comment on above: GFR Calc Estimated GFR (MDRD) Non-Af Amer 60 mL/min >60 [facility] Work Phone: Comment on above: Non- GFR Calc Platelets bldon 09-16-2021 Platelets (Bld) [#/Vol] 133 10*3/uL 150-450 [facility] Work Phone: Serum or plasma calcium francine urement (mass/volume)on 09-16-2021 Calcium [Mass/Vol] 9.0 mg/dL 8.5-10.1 [facility] Work Phone: Serum or plasma creatinine m easurement (mass/volume)on 09-16-2021 Creatinine [Mass/Vol] 1.24 mg/dL 0.70-1.30 [facility] Work Phone: Comment on above: The validity of the calculated GFR & GFRAA in patients over 70 years has not been determined. Clinical correlation is essential. Serum or plasma urea nitroge n measurement (mass/volume)on 09-16-2021 Urea nitrogen [Mass/Vol] 17 mg/dL 7-18 [facility] Work Phone: Thin prep Papanicolaou smear with manual screeningon 09-16-2021 Thin prep Papanicolaou smear with manual screening 5 5-15 [facility] Work Phone: Absolute lymphocyte counton 06-10-2021 Lymphocytes Auto (Unsp spec) [#/Vol] 1.00 10*3/uL 0.83-4.51 [facility] Work Phone: Basophil percentageon 2021 Basophils/100 WBC (Bld) 0.3 % 0-1 [facility] Work Phone: Chloride [Moles/Vol] 107 mmol/L 98-107 [facility] Work Phone: Eosinophils/100 WBC (Bld) 1.7 % 0-5 [facility] Work Phone: Glucose [Mass/Vol] 150 mg/dL 74-106 [facility] Work Phone: [phone] Comment on above: Fasting Glucose resu lt greater than or equal to 126 mg/dL suggests DIABETES MELLITUS per A.D.A. criteria. Neutrophils (Bld) [#/Vol] 4.9 10*3/uL 2.0-7.7 [facility] Work Phone: [phone] Neutrophils/100 WBC (Bld) 73.8 % 47-70 [facility] Work Phone: [phone] Potassium [Moles/Vol] 5.6 mmol/L 3.5-5.1 [facility] Work Phone: [phone] Comment on above: Moderate Hemolysis, Result may be falsely increased. Sodium [Moles/Vol] 139 mmol/L 136-145 [facility] Work Phone: [phone] WBC (Bld) [#/Vol] 6.7 10*3/uL 4.4-11.0 [facility] Work Phone: [phone] Blood erythrocytes count (nu mber/volume)on 06-10-2021 RBC (Bld) [#/Vol] 5.17 10*6/uL 4.6-6.2 [facility] Work Phone: [phone] Blood hemoglobin measurement (mass/volume)on 06-10-2021 Hemoglobin (Bld) [Mass/Vol] 15.5 g/dL 13.0-16.5 [facility] Work Phone: [phone] Blood lymphocytes/100 leukoc yteson 06-10-2021 Lymphocytes/100 WBC (Bld) 15.0 % 19-41 [facility] Work Phone: [phone] Blood monocytes/100 leukocyt eson 06-10-2021 Monocytes/100 WBC (Bld) 8.7 % 0-10 [facility] Work Phone: [phone] Blood platelet mean volumeon 06-10-2021 Platelet mean volume (Bld) [Entitic vol] 12.7 fL 6.2-12.0 [facility] Work Phone: [phone] Determination of erythrocyte mean corpuscular volume (MCV)on 02-08-2022 MCV (RBC) [Entitic vol] 89.6 fL 80-94 [facility] Work Phone: [phone] Hematocrit Auto (Bld) [Volum e fraction]on 06-10-2021 Hematocrit (Bld) [Volume fraction] 46.3 % 40-54 [facility] Work Phone: [phone] Laboratory - Chemistry and C hemistry - challengeon 06-10-2021 CO2 [Moles/Vol] 28.0 mmol/L 21.0-32.0 [facility] Work Phone: [phone] Urea nitrogen/Creatinine [Mass ratio] 12.7 mg/mg 10-20 [facility] Work Phone: [phone] Laboratory - Hematology and Cell countson 06-10-2021 Erythrocyte distribution width (RBC) [Entitic vol] 45.9 fL 35.1-43.9 [facility] Work Phone: [phone] Erythrocyte distribution width (RBC) [Ratio] 14.1 % 11.6-14.6 [facility] Work Phone: [phone] Immature granulocytes/100 WBC (Bld) 0.500 % 0.0-0.9 [facility] Work Phone: [phone] Comment on above: IG% - Immature Granu locytes (promyelocytes, myelocytes and metamyelocytes) > 1% indicates that a LEFT SHIFT is Present. MCH (RBC) [Entitic mass] 30.0 pg 27.0-32.0 [facility] Work Phone: [phone] Nucleated RBC/100 WBC (Bld) [Ratio] 0 % 0-5 [facility] Work Phone: [phone] MCHC Auto (RBC) [Mass/Vol]on 06-10-2021 MCHC (RBC) [Mass/Vol] 33.5 g/dL 32-36 [facility] Work Phone: [phone] No Panel Informationon 06-10 Troponin I High Sensitivity 10 pg/mL 3.0-78.0 [facility] Work Phone: [phone] Comment on above: Please Note: [place] t Units and Gender Specific Reference Ranges. For more information see Policy Stat Procedure [place] High Sensitivity Troponin (TNIH) and attachments. Estimated Creatinine Clearance Calc 47.63 ml/min [facility] Work Phone: Estimated GFR (MDRD) Amer 67 mL/min >60 [facility] Work Phone: Comment on above: GFR Calc Estimated GFR (MDRD) Non-Af Amer 55 mL/min >60 [facility] Work Phone: Comment on above: Non- GFR Calc Platelets bldon 06-10-2021 Platelets (Bld) [#/Vol] 146 10*3/uL 150-450 [facility] Work Phone: Serum or plasma calcium francine urement (mass/volume)on 06-10-2021 Calcium [Mass/Vol] 8.7 mg/dL 8.5-10.1 [facility] Work Phone: Serum or plasma creatinine m easurement (mass/volume)on 06-10-2021 Creatinine [Mass/Vol] 1.34 mg/dL 0.70-1.30 [facility] Work Phone: Comment on above: The validity of the calculated GFR & GFRAA in patients over 70 years has not been determined. Clinical correlation is essential. Serum or plasma urea nitroge n measurement (mass/volume)on 06-10-2021 Urea nitrogen [Mass/Vol] 17 mg/dL 7-18 [facility] Work Phone: Thin prep Papanicolaou smear with manual screeningon 06-10-2021 Thin prep Papanicolaou smear with manual screening 4 5-15 [facility] Work Phone: Absolute lymphocyte counton 05-19-2021 Lymphocytes Auto (Unsp spec) [#/Vol] 1.72 10*3/uL 0.83-4.51 [facility] Work Phone: Basophil percentageon 2021 Basophils/100 WBC (Bld) 0.4 % 0-1 [facility] Work Phone: [phone] Bilirubin [Mass/Vol] 1.20 mg/dL 0.20-1.00 [facility] Work Phone: Comment on above: For patients on eltr ombopag therapy, use of Dimension [place] TBIL is not recommended. Chloride [Moles/Vol] 106 mmol/L 98-107 [facility] Work Phone: Eosinophils/100 WBC (Bld) 1.2 % 0-5 [facility] Work Phone: Glucose [Mass/Vol] 182 mg/dL 74-106 [facility] Work Phone: Comment on above: Fasting Glucose resu lt greater than or equal to 126 mg/dL suggests DIABETES MELLITUS per A.D.A. criteria. Neutrophils (Bld) [#/Vol] 6.6 10*3/uL 2.0-7.7 [facility] Work Phone: Neutrophils/100 WBC (Bld) 70.5 % 47-70 [facility] Work Phone: Potassium [Moles/Vol] 3.8 mmol/L 3.5-5.1 [facility] Work Phone: Protein [Mass/Vol] 7.9 g/dL 6.4-8.2 [facility] Work Phone: Sodium [Moles/Vol] 139 mmol/L 136-145 [facility] Work Phone: WBC (Bld) [#/Vol] 9.4 10*3/uL 4.4-11.0 [facility] Work Phone: Basophil percentage 0 SEEN /hpf [facility] Work Phone: Bilirubin Test strip Ql (U)o n 05-19-2021 Bilirubin Ql (U) Negative Negative [facility] Work Phone: Blood erythrocytes count (nu mber/volume)on 05-19-2021 RBC (Bld) [#/Vol] 5.30 10*6/uL 4.6-6.2 [facility] Work Phone: [phone] Blood hemoglobin measurement (mass/volume)on 05-19-2021 Hemoglobin (Bld) [Mass/Vol] 15.3 g/dL 13.0-16.5 [facility] Work Phone: Blood lymphocytes/100 leukoc yteson 05-19-2021 Lymphocytes/100 WBC (Bld) 18.3 % 19-41 [facility] Work Phone: Blood monocytes/100 leukocyt eson 05-19-2021 Monocytes/100 WBC (Bld) 9.3 % 0-10 [facility] Work Phone: Blood platelet mean volumeon 05-19-2021 Platelet mean volume (Bld) [Entitic vol] 12.5 fL 6.2-12.0 [facility] Work Phone: Determination of erythrocyte mean corpuscular volume (MCV)on 05-19-2021 MCV (RBC) [Entitic vol] 89.8 fL 80-94 [facility] Work Phone: Hematocrit Auto (Bld) [Volum e fraction]on 05-19-2021 Hematocrit (Bld) [Volume fraction] 47.6 % 40-54 [facility] Work Phone: Ketones Test strip Ql (U)on 05-19-2021 Ketones Ql (U) Negative Negative [facility] Work Phone: Laboratory - Chemistry and C hemistry - challengeon 05-19-2021 ALP [Catalytic activity/Vol] 156 U/L 45-117 [facility] Work Phone: ALT [Catalytic activity/Vol] 44 U/L 16-61 [facility] Work Phone: [phone] CO2 [Moles/Vol] 26.0 mmol/L 21.0-32.0 [facility] Work Phone: [phone] Globulin (S) [Mass/Vol] 4.2 g/dL 2.2-4.2 [facility] Work Phone: Lipase [Catalytic activity/Vol] 199 U/L 73-393 [facility] Work Phone: [phone] Urea nitrogen/Creatinine [Mass ratio] 13.8 mg/mg 10-20 [facility] Work Phone: [phone] Laboratory - Hematology and Cell countson 05-19-2021 Erythrocyte distribution width (RBC) [Entitic vol] 46.7 fL 35.1-43.9 [facility] Work Phone: [phone] Erythrocyte distribution width (RBC) [Ratio] 14.3 % 11.6-14.6 [facility] Work Phone: [phone] Immature granulocytes/100 WBC (Bld) 0.300 % 0.0-0.9 [facility] Work Phone: [phone] Comment on above: IG% - Immature Granu locytes (promyelocytes, myelocytes and metamyelocytes) > 1% indicates that a LEFT SHIFT is Present. MCH (RBC) [Entitic mass] 28.9 pg 27.0-32.0 [facility] Work Phone: [phone] Nucleated RBC/100 WBC (Bld) [Ratio] 0 % 0-5 [facility] Work Phone: [phone] MCHC Auto (RBC) [Mass/Vol]on 05-19-2021 MCHC (RBC) [Mass/Vol] 32.1 g/dL 32-36 [facility] Work Phone: Mucus LM Ql (Urine sed)on Mucus Ql (Urine sed) 0 SEEN /hpf [facility] Work Phone: [phone] Nitrite Test strip Ql (U)on 05-19-2021 Nitrite Ql (U) Negative Negative [facility] Work Phone: [phone] Panel Informationon 05-19 Estimated Creatinine Clearance Calc 46.25 ml/min [facility] Work Phone: [phone] Estimated GFR (MDRD) Amer 65 mL/min >60 [facility] Work Phone: [phone] Comment on above: GFR Calc Estimated GFR (MDRD) Non-Af Amer 53 mL/min >60 [facility] Work Phone: [phone] Comment on above: Non- GFR Calc Platelets bldon 05-19-2021 Platelets (Bld) [#/Vol] 158 10*3/uL 150-450 [facility] Work Phone: [phone] Protein Test strip Ql (U)on 05-19-2021 Protein Ql (U) Negative Negative [facility] Work Phone: [phone] Serum or plasma albumin francine urement (mass/volume)on 05-19-2021 Albumin [Mass/Vol] 3.7 g/dL 3.2-5.0 [facility] Work Phone: [phone] Serum or plasma albumin/glob ulin mass ratioon 05-19-2021 Albumin/Globulin [Mass ratio] 0.9 {ratio} 0.9-2.4 [facility] Work Phone: [phone] Serum or plasma calcium francine urement (mass/volume)on 05-19-2021 Calcium [Mass/Vol] 9.2 mg/dL 8.5-10.1 [facility] Work Phone: [phone] Serum or plasma creatinine m easurement (mass/volume)on 05-19-2021 Creatinine [Mass/Vol] 1.38 mg/dL 0.70-1.30 [facility] Work Phone: [phone] Comment on above: The validity of the calculated GFR & GFRAA in patients over 70 years has not been determined. Clinical correlation is essential. Serum or plasma urea nitroge n measurement (mass/volume)on 05-19-2021 Urea nitrogen [Mass/Vol] 19 mg/dL 7-18 [facility] Work Phone: [phone] Squamous epithelial cells de tection in urine sediment by light microscopyon 05-19-2021 Epithelial cells.squamous LM Ql (Urine sed) 0 SEEN /hpf [facility] Work Phone: [phone] Thin prep Papanicolaou smear with manual screeningon 05-19-2021 Thin prep Papanicolaou smear with manual screening 25 U/L 15-37 [facility] Work Phone: [phone] Thin prep Papanicolaou smear with manual screening 7 5-15 [facility] Work Phone: [phone] Urine blood detectionon 05-03 RBC Ql (U) Negative Negative [facility] Work Phone: RBC Ql (U) 0 SEEN /hpf [facility] Work Phone: Urine clarityon 05-19-2021 Clarity (U) Clear Clear [facility] Work Phone: Urine color determinationon 05-19-2021 Color (U) Straw Yellow [facility] Work Phone: Urine glucose detectionon Glucose Ql (U) Normal mg/dl Normal [facility] Work Phone: [phone] Urine leukocyte esterase det ection by dipstickon 05-19-2021 Leukocyte esterase Test strip Ql (U) Negative Negative [facility] Work Phone: Urine pHon 05-19-2021 pH (U) 5.0 [pH] [facility] Work Phone: Urine sediment bacteria coun t by microscopy (number/high power field)on 05-19-2021 Bacteria LM.HPF (Urine sed) [#/Area] 0 /[HPF] None Seen [facility] Work Phone: Urine specific gravity measu rementon 05-19-2021 Specific gravity (U) [Rel density] 1.010 [facility] Work Phone: Urobilinogen Auto test strip Ql (U)on 05-19-2021 Urobilinogen Ql (U) Normal mg/dl Normal [facility] Work Phone: CT ANGIOGRAM AORTA CHEST [...] descending thoracic aorta is tortuous within its vqt-ob-nvtdzc course but is not aneurysmal. The abdominal [...] particularly at L4-L5 and L5-S1. IMAGING FACILITY: [facility]. 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 Physician: PROCEDURE(S) [...] right femoral artery - 6F. 10 cm [place] Catheters were advanced using standard guide wire [...] Equipment: Sheath(s) VASCULAR [employer]UTIONS 4F MICROPUNCTURE KIT [employer] 6F 10CM [place] SHEATH Wire(s) [employer] J WIRE FIXED MERIT .035 X 150CM GUIDEWIRE Catheter(s) Yotomo JR4 DIAG CATH 6F Yotomo JR4 DIAG CATH 6F [facility] PIG[facility] STRAIGHT DIAG CATH 6F See Nursing Notes for further details Signed By Eladio Ingram MD On 01/10/2021 11:05:05 Eladio Ingram MD _ _ Normal [facility] ECHOCARDIOGRAM 2D COMPLETEOr dered By: Eladio Ingram on 10-15-2020 Aortic valve area 2.28578 cm [facility] AV mean gradient 6 mmHg [facility] EF 62.7797 % [facility] Patient Info Name: Jina RICO Age: 75 years : 1945 Gender: Male Ht: 175 cm Wt: 106 kg BSA: 2.31 m2 HR: 50 bpm BP: 134 / 72 mmHg Heart Rhythm: Bradycardia, Sinus Rhythm Technical Quality: Fair, Technically difficult Exam Date: 10/15/2020 12:57 PM Patient Status: Outpatient Solution Spec: Tracy Bonilla RDCS, RVT Exam Type: ECHOCARDIOGRAM COMPLETE W CONTRAST Study Info Indications - Dyspnea Attending Physician: ELADIO INGRAM Referring Physician: ELADIO INGRAM ; [id number] BMI: 34.56 kg/m2 Summary 1. Left ventricular [...] Velocity 1.09 m/s (more content not included)... [facility] Interface, Rad In He [employer]ch[employer] - 10/15/2020 4:30 PM EDT Patient Info Name: GERRY RICO Age: 75 years : 1945 Gender: Male Ht: 175 cm Wt: 106 kg BSA: 2.31 m2 HR: 50 bpm BP: 134 / 72 mmHg Heart Rhythm: Bradycardia, Sinus Rhythm Technical Quality: Fair, Technically difficult Exam Date: 10/15/2020 12:57 PM Patient Status: Outpatient Solution Spec: Tracy Bonilla RDCS, RVT Exam Type: ECHOCARDIOGRAM COMPLETE W CONTRAST Study Info Indications - Dyspnea Attending Physician: ELADIO INGRAM Referring Physician: ELADIO INGRAM ; [id number] BMI: 34.56 kg/m2 Summary 1. Left ventricular [...] mmHg MV VTI 46 cm MV Decel Vilas 333 cm/s2 MV PHT 38 ms MV Area (PHT) 5.8 cm2 4.0-5.0 MV Area (Cont Eq VTI) 2.5 cm2 MV Area Index (Cont Eq VTI) 1.06 cm2/m2 MV Di (more content not included)... [facility] ECHOCARDIOGRAM COMPLETE W CO NTRASTon 10-15-2020 ECHOCARDIOGRAM COMPLETE W CONTRAST Patient Info Name: GERRY RICO Age: 75 years : 1945 Gender: Male Ht: 175 cm Wt: 106 kg BSA: 2.31 m2 HR: 50 bpm BP: 134 / 72 mmHg Heart Rhythm: Bradycardia, Sinus Rhythm Technical Quality: Fair, Technically difficult Exam Date: 10/15/2020 12:57 PM Patient Status: Outpatient Solution Spec: Tracy Bonilla, MONICACS, RVT Exam Type: ECHOCARDIOGRAM COMPLETE W CONTRAST Study Info Indications - Dyspnea Attending Physician: ELADIO INGRAM Referring Physician: ELADIO INGRAM ; [id number] BMI: 34.56 kg/m2 Summary 1. Left ventricular [...] mmHg MV VTI 46 cm MV Decel Vilas 333 cm/s2 MV PHT 38 ms MV Area (PHT) 5.8 cm2 4.0-5.0 MV Area (Cont Eq VTI) 2.5 cm2 MV Area Index (Cont Eq VTI) 1.06 cm2/m2 MV Diastolic Function MV E Peak Velocity 1 m/s MV A Peak Velocity 1 m/s MV E/A 1.2 MV (more content not included)... Normal [facility] Ambulatory ECG 12-LEADOrdered By: Sagar Acuña on 10-09-2020 Atrial Rate [facility] P [place] [facility] P-R Interval [facility] Q-T Interval [facility] Q-T Interval (corrected) [facility] QRS Duration [facility] QTC Calculation (Bezet) [facility] R [place] [facility] T [place] [facility] Ventricular Rate [facility] Auto Diffon 09-15-2018 Basophils #/vol (Bld) 0.0 E3/mcL Normal 0.0-0.2 [facility] Comment on above: Order Comment: Order Added by Discern Expert. Performed By: #### 2 [id number] #### [employer] [address] [place] [address] Basophils/100 WBC (Bld) 0.6 % Normal 0.0-2.0 [facility] Comment on above: Order Comment: Order Added by Discern Expert. Performed By: #### 2 [id number] #### [employer] [facility] [place] [address] Eos Absolute 0.1 E3/mcL Normal 0.0-0.7 [facility] Comment on above: Order Comment: Order Added by Discern Expert. Performed By: #### 2 284142 #### [employer] [facility] [place] [address] Eosinophils/100 WBC (Bld) 2.2 % Normal 0.0-11.0 [facility] Comment on above: Order Comment: Order Added by Discern Expert. Performed By: #### 2 [id number] #### [employer] [address] [place] [address] Lymphocytes #/vol (Bld) 1.9 E3/mcL Normal 1.2-3.4 [facility] Comment on above: Order Comment: Order Added by Discern Expert. Performed By: #### 2 [id number] #### [employer] [address] [place] [address] Lymphocytes/100 WBC (Bld) 31.0 % Normal 20.0-55.0 [facility] Comment on above: Order Comment: Order Added by Discern Expert. Performed By: #### 2 895689 #### [employer] [address] [place] [address] [place] Absolute 0.8 E3/mcL High 0.0-0.7 [facility] Comment on above: Order Comment: Order Added by Discern Expert. Performed By: #### 2 467801 #### [employer] [address] [place] [address] 57368 Monocytes/100 WBC (Bld) 13.2 % High 0.0-10.0 [facility] Comment on above: Order Comment: Order Added by Discern Expert. Performed By: #### 2 [id number] #### [employer] [address] [place] [address] Neutro Absolute 3.3 E3/mcL Normal 1.4-6.5 [facility] Comment on above: Order Comment: Order Added by Discern Expert. Performed By: #### 2 757376 #### [employer] [address] [place] [address] 95152 Neutro Auto 53.0 % Normal 37.0-75.0 [facility] Comment on above: Order Comment: Order Added by Discern Expert. Performed By: #### 2 570110 #### [employer] [address] [place] [address] BMPon 09-15-2018 Anion gap molar conc 10 mmol/L Normal 10-20 [facility] Comment on above: Performed By: #### 2 071236 #### [employer] [address] [place], [place] [address] Calcium mass conc 8.4 mg/dL Low 8.6-10.3 [facility] Comment on above: Performed By: #### 2 150292 #### [employer] [address] [place] [address] Chloride molar conc 105 mmol/L Normal 98-107 [facility] Comment on above: Performed By: #### 2 351135 #### [employer] [address] [place] [address] CO2 molar conc 26.0 mmol/L Normal 21.0-32.0 [facility] Comment on above: Performed By: #### 2 076344 #### [employer] [address] [place] [address] Creatinine mass conc 1.1 mg/dL Normal 0.5-1.3 [facility] Comment on above: Performed By: #### 2 459557 #### [employer] [address] [place] [address] Glucose mass conc 136 mg/dL High 70-99 [facility] Comment on above: Performed By: #### 2 089354 #### [employer] [address] [place] [address] Potassium molar conc 4.1 mmol/L Normal 3.5-5.3 [facility] Comment on above: Performed By: #### 2 844919 #### [employer] [address] [place] [address] Sodium molar conc 137 mmol/L Normal 136-145 [facility] Comment on above: Performed By: #### 2 575795 #### [employer] [address] [place] [address] Urea nitrogen mass conc 19 mg/dL Normal 6-23 [facility] Comment on above: Performed By: #### 2 [id number] #### [employer] [address] [place] [address] Urea nitrogen/Creatinine mass ratio 17.3 ratio Normal 5.4-30.0 [facility] Comment on above: Performed By: #### 2 188598 #### [employer] [address] [place] [address] CBC w/ Auto Diffon 9 Erythrocyte distribution width Ratio (RBC) 14.9 % High 11.5-14.5 [facility] Comment on above: Performed By: #### 2 670711 #### [employer] [address] [place] [address] Hematocrit Volume Fraction (Bld) 41.5 % Low 42.0-52.0 [facility] Comment on above: Performed By: #### 2 428873 #### [employer] [address] [place] [address] 80897 Hemoglobin mass conc (Bld) 13.6 g/dL Normal 13.5-18.0 [facility] Comment on above: Performed By: #### 2 028438 #### [employer] [address] [place] [address]337 MCH Entitic mass (RBC) 29.6 pg Normal 27.0-31.0 [facility] Comment on above: Performed By: #### 2 743830 #### [employer] [address] [place], [place] [address] MCHC mass conc (RBC) 32.8 g/dL Low 33.0-37.0 [facility] Comment on above: Performed By: #### 2 213564 #### [employer] [address] [place] [address]87 MCV Entitic volume (RBC) 90.4 fL Normal 78.0-100.0 [facility] Comment on above: Performed By: #### 2 481448 #### [employer] [address] [place] [address] 79046 Platelet mean volume Entitic volume (Bld) 10.8 fL Normal 7.4-11.0 [facility] Comment on above: Performed By: #### 2 614382 #### [employer] [address] [place] [address]14 Platelets #/vol (Bld) 137 E3/mcL Normal 130-400 [facility] Comment on above: Performed By: #### 2 155884 #### [employer] [address] [place] [address] 24910 RBC #/vol (Bld) 4.59 E6/mcL Normal 3.90-6.10 [facility] Comment on above: Performed By: #### 2 163235 #### [employer] [address] [place] [id number] WBC #/vol (Bld) 6.2 E3/mcL Normal 3.6-11.0 [facility] Comment on above: Performed By: #### 2 279341 #### [employer] [facility] [place] [id number] Glucose POCon 09-15-2018 Glucose mass conc 163 mg/dL High 70-99 [facility] Comment on above: Performed By: #### 2 714597 #### [employer] [address] [place], [place] [address] Glucose mass conc 99 mg/dL Normal 70-99 [facility] Comment on above: Performed By: #### 2 883760 #### [employer] [address] [place] [address] Troponin-Ion 09-15-2018 Troponin I.cardiac mass conc 0.01 ng/mL Normal 0.00-0.03 [facility] Comment on above: Performed By: #### 2 058614 #### [employer] [address] [place], [place] [address] eGFRon 09-15-2018 GFR/1.73 sq M predicted among non-blacks MDRD vol rate/area (S/P/Bld) mL/min/{1.73_m2} Normal [facility] Comment on above: Order Comment: Order added by Discern Expert. Performed By: #### 2 191565 #### [employer] [address] [place] [address] Auto Diffon 09-14-2018 Basophils #/vol (Bld) 0.0 E3/mcL Normal 0.0-0.2 [facility] Comment on above: Order Comment: Order Added by Discern Expert. Performed By: #### 2 [id number] #### [employer] [address] [place], [place] [address] Basophils/100 WBC (Bld) 0.6 % Normal 0.0-2.0 [facility] Comment on above: Order Comment: Order Added by Discern Expert. Performed By: #### 2 433844 #### [employer] [address] [place], [place] [address] Eos Absolute 0.1 E3/mcL Normal 0.0-0.7 [facility] Comment on above: Order Comment: Order Added by Discern Expert. Performed By: #### 2 657174 #### [employer] [address] [place] [address] Eosinophils/100 WBC (Bld) 1.7 % Normal 0.0-11.0 [facility] Comment on above: Order Comment: Order Added by Discern Expert. Performed By: #### 2 192658 #### [employer] [address] [place] [address] Lymphocytes #/vol (Bld) 1.2 E3/mcL Normal 1.2-3.4 [facility] Comment on above: Order Comment: Order Added by Kiana Expert. Performed By: #### 2 355364 #### [employer] [address] [place] [address]17 Lymphocytes/100 WBC (Bld) 16.5 % Low 20.0-55.0 [facility] Comment on above: Order Comment: Order Added by Kiana Expert. Performed By: #### 2 721497 #### [employer] [address] [place] [address] [place] Absolute 0.8 E3/mcL High 0.0-0.7 [facility] Comment on above: Order Comment: Order Added by Kiana Expert. Performed By: #### 2 143333 #### [employer] [address] [place] [address] 48900 Monocytes/100 WBC (Bld) 11.1 % High 0.0-10.0 [facility] Comment on above: Order Comment: Order Added by Kiana Expert. Performed By: #### 2 048776 #### [employer] [address] [place] [address] Neutro Absolute 5.1 E3/mcL Normal 1.4-6.5 [facility] Comment on above: Order Comment: Order Added by Kiana Expert. Performed By: #### 2 483181 #### [employer] [address] [place] [address] Neutro Auto 70.1 % Normal 37.0-75.0 [facility] Comment on above: Order Comment: Order Added by Discern Expert. Performed By: #### 2 592143 #### [employer] [address] [place] [address] BMPon 09-14-2018 Anion gap molar conc 13 mmol/L Normal 10-20 [facility] Comment on above: Performed By: #### 2 131202 #### [employer] [address] [place] [address] Calcium mass conc 9.2 mg/dL Normal 8.6-10.3 [facility] Comment on above: Performed By: #### 2 907030 #### [employer] [address] [place] [address]176 Chloride molar conc 105 mmol/L Normal 98-107 [facility] Comment on above: Performed By: #### 2 644140 #### [employer] [address] [place] [address] 38543 CO2 molar conc 24.0 mmol/L Normal 21.0-32.0 [facility] Comment on above: Performed By: #### 2 059017 #### [employer] [address] [place] [address]17 Creatinine mass conc 1.2 mg/dL Normal 0.5-1.3 [facility] Comment on above: Performed By: #### 2 721536 #### [employer] [address] [place] [address] 19732 Glucose mass conc 129 mg/dL High 70-99 [facility] Comment on above: Performed By: #### 2 278438 #### [employer] [address] [place] [address]649 Potassium molar conc 3.9 mmol/L Normal 3.5-5.3 [facility] Comment on above: Performed By: #### 2 079097 #### [employer] [address] [place] [address] Sodium molar conc 138 mmol/L Normal 136-145 [facility] Comment on above: Performed By: #### 2 406808 #### [employer] [address] [place] [address] 56038 Urea nitrogen mass conc 19 mg/dL Normal 6-23 [facility] Comment on above: Performed By: #### 2 092399 #### [employer] [address] [place] [address] Urea nitrogen/Creatinine mass ratio 15.8 ratio Normal 5.4-30.0 [facility] Comment on above: Performed By: #### 2 641677 #### [employer] [address] [place] [address] CBC w/ Auto Diffon 9 Erythrocyte distribution width Ratio (RBC) 15.2 % High 11.5-14.5 [facility] Comment on above: Performed By: #### 2 794979 #### [employer] [address] [place] [address] Hematocrit Volume Fraction (Bld) 45.0 % Normal 42.0-52.0 [facility] Comment on above: Performed By: #### 2 096225 #### [employer] [address] [place] [address] Hemoglobin mass conc (Bld) 15.0 g/dL Normal 13.5-18.0 [facility] Comment on above: Performed By: #### 2 431432 #### [employer] [address] [place] [address] MCH Entitic mass (RBC) 29.8 pg Normal 27.0-31.0 [facility] Comment on above: Performed By: #### 2 075687 #### [employer] [address] [place] [address] MCHC mass conc (RBC) 33.4 g/dL Normal 33.0-37.0 [facility] Comment on above: Performed By: #### 2 063077 #### [employer] [address] [place] [address] MCV Entitic volume (RBC) 89.4 fL Normal 78.0-100.0 [facility] Comment on above: Performed By: #### 2 788616 #### [employer] [address] [place] [address] Platelet mean volume Entitic volume (Bld) 10.8 fL Normal 7.4-11.0 [facility] Comment on above: Performed By: #### 2 218237 #### [employer] [address] [place] [address] Platelets #/vol (Bld) 158 E3/mcL Normal 130-400 [facility] Comment on above: Performed By: #### 2 062640 #### [employer] [address] [place] [address] RBC #/vol (Bld) 5.04 E6/mcL Normal 3.90-6.10 [facility] Comment on above: Performed By: #### 2 946837 #### [employer] [address] [place] [address] WBC #/vol (Bld) 7.2 E3/mcL Normal 3.6-11.0 [facility] Comment on above: Performed By: #### 2 619041 #### [employer] [address] [place] [address] CT Head or Brain w/o Contras ton 09-14-2018 CT Head or Brain w/o Contrast Exam Date/Time: 09/14/2018 15:21 EDT Reason for Exam: Injury Report STUDY: CT Head or Brain w/o Contrast; 09/14/2018 3:21 pm INDICATION: Injury. COMPARISON: 11/28/2016 ACCESSION NUMBER(S): [id number] ORDERING CLINICIAN: Kirsty Nguyen TECHNIQUE: Volume acquisition [...] Radha Olivarez MD Technologist: IZAIAH Normal [facility] CT Spine Cervical w/o Contra ston 09-14-2018 CT Spine Cervical w/o Contrast Exam Date/Time: 09/14/2018 15:22 EDT Reason for Exam: Trauma Report STUDY: CT Spine Cervical w/o Contrast; 09/14/2018 3:22 pm INDICATION: Trauma. COMPARISON: None. ACCESSION NUMBER(S): [id number] ORDERING CLINICIAN: Kirsty Nguyen TECHNIQUE: Axial CT [...] Radha Olivarez MD Technologist: IZAIAH Normal [facility] Glucose POCon 09-14-2018 Glucose mass conc 132 mg/dL High 70-99 [facility] Comment on above: Performed By: #### 2 [id number] #### [employer] [address] [place] [address] [id number] 09-14-2018 Hemoglobin A1c/Hemoglobin.total mass fraction (Bld) 6.9 % High 4.0-6.3 [facility] Comment on above: Performed By: #### 2 [id number] #### COSMO Rem[employer]emjulian [address] [place] [address] Magnesiumon 09-14-2018 Magnesium mass conc 2.0 Int._Unit/L Normal 1.6-2.4 [facility] Comment on above: Performed By: #### 2 [id number] #### COSMO [employer] [address] [place] [address] PTon 09-14-2018 INR Coag RelTime (PPP) 1.0 {INR} Normal 0.9-1.1 [facility] Comment on above: Result Comment: INR Recommended Therapeutic ranges: Prophylaxis/treatment of DVT and PE..........2.0-3.0 Prevention of systemic embolism.................2.0-3.0 Mechanical prosthetic values........................2.5-3.5 CRITICAL VALUE.........................................> 4.0 NOTE: New methodology started 05/16/2018 Performed By: #### 2 [id number] #### COSMO [employer] [facility] [place] [address] Prothrombin time (PT) Coag time (PPP) 11.8 second(s) Normal 9.7-12.7 [facility] Comment on above: Result Comment: NOTE : New reference range established on 05/16/2018 due to change in methodology. Performed By: #### 2 [id number] #### COSMO ZenobiaHemo [address] [place] [address] PTTon 09-14-2018 aPTT Coag time (Bld) 32 second(s) Normal 28-38 [facility] Comment on above: Result Comment: NOTE :New reference range established 05/16/2018 due to change in methodology. Performed By: #### 2 [id number] #### COSMO RemHemo [address] [place] [address] TSHon 09-14-2018 Thyrotropin Qn 5.25 mcIU/mL Normal 0.30-5.60 [facility] Comment on above: Performed By: #### 2 [id number] #### COSMO FregosoHemo [address] [place] [address] Troponin-Ion 09-14-2018 Troponin I.cardiac mass conc 0.02 ng/mL Normal 0.00-0.03 [facility] Comment on above: Performed By: #### 2 [id number] #### COSMO [employer] [address] [place] [address] UA Completeon 09-14-2018 Color Nom (U) Straw Normal Yellow [facility] Comment on above: Performed By: #### 2 [id number] #### COSMO RemHemo [address] [place] [address] Glucose mass conc (U) Negative Normal Negative [facility] Comment on above: Performed By: #### 2 [id number] #### COSMO Rem[employer]emo [address] [place] [id number] Ketones Ql (U) Negative Normal Negative [facility] Comment on above: Performed By: #### 2 [id number] #### COSMO Rem[employer]emo [address] [place] [address] UA Blood Negative Normal Negative [facility] Comment on above: Performed By: #### 2 [id number] #### COSMO RemHemo [address] [place] [address] UA Clarity Clear Normal Clear [facility] Comment on above: Performed By: #### 2 [id number] #### COSMO Rem[employer]emo [address] [place] [address] UA Hyal Cast 3-5 Abnormal 0-2 [facility] Comment on above: Performed By: #### 2 [id number] #### COSMO Rem[employer]emo [address] [place] [address] UA Leuk Est Negative Normal Negative [facility] Comment on above: Performed By: #### 2 [id number] #### COSMO Rem[employer] [address] [place] [id number] UA Mucous Trace Abnormal Trace [facility] Comment on above: Performed By: #### 2 [id number] #### COSMO Rem[employer]emo [address] [place] [address] UA Nitrite Negative Normal Negative [facility] Comment on above: Performed By: #### 2 [id number] #### COMSO RemHemo [address] [place] [address] UA pH 5.0 Normal 4.6-8.0 [facility] Comment on above: Performed By: #### 2 [id number] #### COSMO FregosoHemo [address] [place] [address] UA Protein Negative Normal Negative [facility] Comment on above: Performed By: #### 2 [id number] #### COSMO FregosoHemo [address] [place] [address] UA Spec Grav 1.009 Normal 1.003-1.03 0 [facility] Comment on above: Performed By: #### 2 [id number] #### COSMO FregosoHemo [address] [place] [id number] UA Urobilinogen Negative Normal [facility] Comment on above: Result Comment: Due to a manufacturing issue, low positive urobilinogen results may be fasely positive. Correlate with urine bilirubin and additional clinical/laboratory findings to assess the risk of hemolytic anemia or liver disease. If clinically indicated, repeat testing with an alternate method is available by contacting the laboratory within 24 hours. Performed By: #### 2 [id number] #### COSMO [facility]reg[facility]emo [facility] [place] [id number] Urobilinogen Qn (U) Negative Normal Negative [facility] Comment on above: Performed By: #### 2 [id number] #### COSMO [facility]regoso[facility]emo [facility] [place] [id number] XR Chest AP Portableon 09-14 XR Chest AP Portable Exam Date/Time: 09/14/2018 15:43 EDT Reason for Exam: Chest pain Report STUDY: XR Chest AP Portable; 09/14/2018 3:43 pm INDICATION: Chest pain. COMPARISON: 12/25/2016 ACCESSION NUMBER(S): [id number] ORDERING CLINICIAN: Kirsty Nguyen FINDINGS: CARDIOMEDIASTINAL SILHOUETTE: [...] Signed by: Iva Vargas MD Technologist: [facility] XR Humerus Lefton 09-14-2018 XR Humerus Left Exam Date/Time: 09/14/2018 15:43 EDT Reason for Exam: Pain, Traumatic Report STUDY: XR Humerus Left; XR Shoulder Complete Left;; 09/14/2018 3:43 pm INDICATION: Pain, Traumatic. COMPARISON: None. ACCESSION NUMBER(S): [id number]; [id number] ORDERING CLINICIAN: Kirsty Nguyen FINDINGS: Five views [...] Signed by: Iva Vargas MD Technologist: [facility] XR Knee Complete Righton XR Knee Complete Right Exam Date/Time: 09/14/2018 15:43 EDT Reason for Exam: Pain, Traumatic Report STUDY: XR Knee Complete Right;; 09/14/2018 3:43 pm INDICATION: Pain, Traumatic. COMPARISON: None. ACCESSION NUMBER(S): [id number] ORDERING CLINICIAN: Kirsty Nguyen FINDINGS: Four views right knee: There is no fracture, dislocation or joint effusion. There is swelling anterior to the patella and infrapatellar tendon. IMPRESSION: No acute bony abnormality right knee, soft tissue swelling. FINAL REPORT Dictated: 09/14/2018 4:19 pm Iva Vargas MD Signed (Electronic Signature): 09/14/2018 4:19 pm Signed by: Iva Vargas MD Technologist: [facility] XR Shoulder Complete Lefton 09-14-2018 XR Shoulder Complete Left Exam Date/Time: 09/14/2018 15:43 EDT Reason for Exam: Pain, Traumatic Report STUDY: XR Humerus Left; XR Shoulder Complete Left;; 09/14/2018 3:43 pm INDICATION: Pain, Traumatic. COMPARISON: None. ACCESSION NUMBER(S): [id number]; [id number] ORDERING CLINICIAN: Kirsty Nguyen FINDINGS: Five views [...] Signed by: Iva Vargas MD Technologist: [facility] eGFRon 09-14-2018 GFR/1.73 sq M predicted among non-blacks MDRD vol rate/area (S/P/Bld) mL/min/{1.73_m2} [facility] Comment on above: Order Comment: Order added by Discern Expert. Performed By: #### 1 [id number] #### COSMO [employer] [address] [place], [place] [id number] Vital Signs Date Time Vital Sign Value Performing Clinician Facility 01-01-2025 12:20-0400 Body temperature 98.7 [degF] Dr. Marycarmen Rodriguez DO Work Phone: [facility] 01-01-2025 12:20-0400 Diastolic blood pressure 78 mm[Hg] Dr. Marycarmen Rodriguez DO Work Phone: [facility] 01-01-2025 12:20-0400 Heart rate 78 /min Dr. Marycarmen Rodriguez DO Work Phone: [facility] 01-01-2025 12:20-0400 Respiratory rate 16 /min Dr. Marycarmen Rodriguez DO Work Phone: [facility] 01-01-2025 12:20-0400 SaO2% (BldA) [Mass fraction] 99 % Dr. Marycarmen Rodriguez DO Work Phone: [facility] 01-01-2025 12:20-0400 Systolic blood pressure 101 mm[Hg] Dr. Marycarmen Rodriguez DO Work Phone: [facility] 01-01-2025 08:53-0400 Body height 175.[address] Marycarmen Rodriguez DO Work Phone: [facility] 01-01-2025 08:53-0400 Body mass index (BMI) [Ratio] 34 kg/m2 Dr. Marycarmen Rodriguez DO Work Phone: [facility] 01-01-2025 08:53-0400 Body weight 104.[address] Marycarmen Rodriguez DO Work Phone: [facility] 12-26-2024 14:39-0400 Body temperature 98.7 [degF] Dr. Marycarmen Rodriguez DO Work Phone: [facility] 12-26-2024 14:39-0400 Diastolic blood pressure 68 mm[Hg] Dr. Marycarmen Rodriguez DO Work Phone: [facility] 12-26-2024 14:39-0400 Heart rate 88 /min Dr. Marycarmen Rodriguez DO Work Phone: [facility] 12-26-2024 14:39-0400 Respiratory rate 18 /min Dr. Marycarmen Rodriguez DO Work Phone: [facility] 12-26-2024 14:39-0400 SaO2% (BldA) [Mass fraction] 95 % Dr. Marycarmen Rodriguez DO Work Phone: [facility] 12-26-2024 14:39-0400 Systolic blood pressure 104 mm[Hg] Dr. Marycarmen Rodriguez DO Work Phone: [facility] 12-26-2024 07:42-0400 Inhaled oxygen concentration 21 % Dr. Marycarmen Rodriguez DO Work Phone: [facility] 12-26-2024 04:00-0400 Body mass index (BMI) [Ratio] 32 kg/m2 Dr. Marycarmen Rodriguez DO Work Phone: [facility] 12-26-2024 04:00-0400 Body weight 98.[address] Marycarmen Rodriguez DO Work Phone: [facility] 12-25-2024 11:30-0400 Body height 175.[address] Marycarmen Rodrigeuz DO Work Phone: [facility] 12-20-2024 14:00-0400 Diastolic blood pressure 65 mm[Hg] Dr. Marycarmen Rodriguez DO Work Phone: [facility] 12-20-2024 14:00-0400 Heart rate 63 /min Dr. Marycarmen Rodriguez DO Work Phone: [facility] 12-20-2024 14:00-0400 Respiratory rate 20 /min Dr. Marycarmen Rodriguez DO Work Phone: [facility] 12-20-2024 14:00-0400 SaO2% (BldA) [Mass fraction] 96 % Dr. Marycarmen Rodriguez DO Work Phone: [facility] 12-20-2024 14:00-0400 Systolic blood pressure 103 mm[Hg] Dr. Marycarmen Rodriguez DO Work Phone: [facility] 12-20-2024 13:15-0400 Body temperature 97.7 [degF] Dr. Marycarmen Rodrgiuez DO Work Phone: [facility] 12-20-2024 11:46-0400 Body mass index (BMI) [Ratio] 31.8 kg/m2 Dr. Marycarmen Rodriguez DO Work Phone: [facility] 12-20-2024 11:46-0400 Body weight 97.[address] Marycarmen Rodriguez DO Work Phone: [facility] 12-17-2024 15:10-0400 Body temperature 97.9 [degF] Dr. Marycarmen Rodriguez DO Work Phone: [facility] 12-17-2024 15:10-0400 Diastolic blood pressure 82 mm[Hg] Dr. Marycarmen Rodriguez DO Work Phone: [facility] 12-17-2024 15:10-0400 Heart rate 78 /min Dr. Marycarmen Rodriguez DO Work Phone: [facility] 12-17-2024 15:10-0400 Respiratory rate 18 /min Dr. Marycarmen Rodriguez DO Work Phone: [facility] 12-17-2024 15:10-0400 SaO2% (BldA) [Mass fraction] 99 % Dr. Marycarmen Rodriguez DO Work Phone: [facility] 12-17-2024 15:10-0400 Systolic blood pressure 100 mm[Hg] Dr. Marycarmen Rodriguez DO Work Phone: [facility] 12-17-2024 05:06-0400 Body mass index (BMI) [Ratio] 31.3 kg/m2 Dr. Marycarmen Rodriguez DO Work Phone: [facility] 12-17-2024 05:06-0400 Body weight 96.[address] Marycarmen Rodriguez DO Work Phone: [facility] 12-17-2024 02:53-0400 Inhaled oxygen concentration 21 % Dr. Marycarmen Rodriguez DO Work Phone: [facility] 12-16-2024 11:59-0400 Body height 175.[address] Marycarmen Rodriguez DO Work Phone: [facility] 12-12-2024 10:23-0400 Body height 175.[address] Marycarmen Rodriguez DO Work Phone: [facility] 12-12-2024 10:23-0400 Body mass index (BMI) [Ratio] 31.7 kg/m2 Dr. Marycarmen Rodriguez DO Work Phone: [facility] 12-12-2024 10:23-0400 Body weight 97.[address] Marycarmen Rodriguez DO Work Phone: [facility] 12-12-2024 10:23-0400 Diastolic blood pressure 74 mm[Hg] Dr. Marycarmen Rodriguez DO Work Phone: [facility] 12-12-2024 10:23-0400 Heart rate 75 /min Dr. Marycarmen Rodriguez DO Work Phone: [facility] 12-12-2024 10:23-0400 Respiratory rate 16 /min Dr. Marycarmen Rodriguez DO Work Phone: [facility] 12-12-2024 10:23-0400 Systolic blood pressure 106 mm[Hg] Dr. Marycarmen Rodriguez DO Work Phone: [facility] 12-08-2024 12:30-0400 Body temperature 97.7 [degF] Dr. Marycarmen Rodriguez DO Work Phone: [facility] 12-08-2024 12:30-0400 Diastolic blood pressure 81 mm[Hg] Dr. Marycarmen Rodriguez DO Work Phone: [facility] 12-08-2024 12:30-0400 Heart rate 72 /min Dr. Marycarmen Rodriguez DO Work Phone: [facility] 12-08-2024 12:30-0400 Respiratory rate 18 /min Dr. Marycarmen Rodriguez DO Work Phone: [facility] 12-08-2024 12:30-0400 SaO2% (BldA) [Mass fraction] 96 % Dr. Marycarmen Rodriguez DO Work Phone: [facility] 12-08-2024 12:30-0400 Systolic blood pressure 121 mm[Hg] Dr. Marycarmen Rodriguez DO Work Phone: [facility] 12-08-2024 01:20-0400 Inhaled oxygen concentration 21 % Dr. Marycarmen Rodriguez DO Work Phone: [facility] 12-07-2024 17:24-0400 Body height 175.[address] Marycarmen Rodriguez DO Work Phone: [facility] 12-07-2024 17:24-0400 Body mass index (BMI) [Ratio] 32.1 kg/m2 Dr. Marycarmen Rodriguez DO Work Phone: [facility] 12-07-2024 17:24-0400 Body weight 98.[address] Marycarmen Rodriguez DO Work Phone: [facility] 12-07-2024 16:00-0400 SaO2% (BldA) [Mass fraction] 97 % Dr. Marycarmen Rodriguez DO Work Phone: [facility] 12-07-2024 15:13-0400 Body temperature 98.2 [degF] Dr. Marycarmen Rodriguez DO Work Phone: [facility] 12-07-2024 15:13-0400 Diastolic blood pressure 61 mm[Hg] Dr. Marycarmen Rodriguez DO Work Phone: [facility] 12-07-2024 15:13-0400 Heart rate 22 /min Dr. Marycarmen Rodriguez DO Work Phone: [facility] 12-07-2024 15:13-0400 Respiratory rate 22 /min Dr. Marycarmen Rodriguez DO Work Phone: [facility] 12-07-2024 15:13-0400 Systolic blood pressure 114 mm[Hg] Dr. Marycarmen Rodriguez DO Work Phone: [facility] 12-07-2024 11:05-0400 Inhaled oxygen flow rate 2 L/min Dr. Marycarmen Rodriguez DO Work Phone: [facility] 12-07-2024 10:52-0400 Body height 175.[address] Marycarmen Rodriguez DO Work Phone: [facility] 12-07-2024 10:52-0400 Body mass index (BMI) [Ratio] 33.4 kg/m2 Dr. Marycarmen Rodriguez DO Work Phone: [facility] 12-07-2024 10:52-0400 Body weight 102.[address] Marycarmen Rodriguez DO Work Phone: [facility] 12-06-2024 12:45-0400 Body temperature 98 [degF] Dr. Marycarmen Rodriguez DO Work Phone: [facility] 12-06-2024 12:45-0400 Diastolic blood pressure 86 mm[Hg] Dr. Marycarmen Rodriguez DO Work Phone: [facility] 12-06-2024 12:45-0400 Heart rate 84 /min Dr. Marycarmen Rodriguez DO Work Phone: [facility] 12-06-2024 12:45-0400 Respiratory rate 14 /min Dr. Marycarmen Rodriguez DO Work Phone: [facility] 12-06-2024 12:45-0400 SaO2% (BldA) [Mass fraction] 99 % Dr. Marycarmen Rodriguez DO Work Phone: [facility] 12-06-2024 12:45-0400 Systolic blood pressure 126 mm[Hg] Dr. Marycarmen Rodriguez DO Work Phone: [facility] 12-06-2024 06:00-0400 Body mass index (BMI) [Ratio] 33 kg/m2 Dr. Marycarmen Rodriguez DO Work Phone: [facility] 12-06-2024 06:00-0400 Body weight 101.[address] Marycarmen Rodriguez DO Work Phone: [facility] 12-06-2024 00:25-0400 Inhaled oxygen concentration 21 % Dr. Marycarmen Rodriguez DO Work Phone: [facility] 12-05-2024 08:28-0400 Heart rate 70 /min Dr. Marycarmen Rodriguez DO Work Phone: [facility] 12-05-2024 08:06-0400 Body temperature 97.6 [degF] Dr. Marycarmen Rodriguez DO Work Phone: [facility] 12-05-2024 08:06-0400 Diastolic blood pressure 80 mm[Hg] Dr. Marycarmen Rodriguez DO Work Phone: [facility] 12-05-2024 08:06-0400 Respiratory rate 18 /min Dr. Marycarmen Rodriguez DO Work Phone: [facility] 12-05-2024 08:06-0400 SaO2% (BldA) [Mass fraction] 100 % Dr. Marycarmen Rodriguez DO Work Phone: [facility] 12-05-2024 08:06-0400 Systolic blood pressure 123 mm[Hg] Dr. Marycarmen Rodriguez DO Work Phone: [facility] 12-05-2024 05:20-0400 Body mass index (BMI) [Ratio] 33.1 kg/m2 Dr. Marycarmen Rodriguez DO Work Phone: [facility] 12-05-2024 05:20-0400 Body weight 101.[address] Marycarmen Rodriguez DO Work Phone: [facility] 12-04-2024 22:55-0400 Inhaled oxygen concentration 21 % Dr. Marycarmen Rodriguez DO Work Phone: [facility] 12-04-2024 08:07-0400 Inhaled oxygen flow rate 2 L/min Dr. Marycarmen Rodriguez DO Work Phone: [facility] 12-02-2024 21:54-0400 Body height 175.[address] Marycarmen Rodriguez DO Work Phone: [facility] 12-02-2024 20:56-0400 Body temperature 98.8 [degF] Dr. Marycarmen Rodriguez DO Work Phone: [facility] 12-02-2024 20:56-0400 Diastolic blood pressure 78 mm[Hg] Dr. Marycarmen Rodriguez DO Work Phone: [facility] 12-02-2024 20:56-0400 Heart rate 77 /min Dr. Marycarmen Rodriguez DO Work Phone: [facility] 12-02-2024 20:56-0400 Respiratory rate 21 /min Dr. Marycarmen Rodriguez DO Work Phone: [facility] 12-02-2024 20:56-0400 SaO2% (BldA) [Mass fraction] 96 % Dr. Marycarmen Rodriguez DO Work Phone: [facility] 12-02-2024 20:56-0400 Systolic blood pressure 114 mm[Hg] Dr. Marycarmen Rodriguez DO Work Phone: [facility] 12-02-2024 20:21-0400 Inhaled oxygen flow rate 3 L/min Dr. Marycarmen Rodriguez DO Work Phone: [facility] 12-02-2024 20:16-0400 Body height 175.[address] Marycarmen Rodriguez DO Work Phone: [facility] 12-02-2024 20:16-0400 Body mass index (BMI) [Ratio] 35.9 kg/m2 Dr. Marycarmen Rodriguez DO Work Phone: [facility] 12-02-2024 20:16-0400 Body weight 110.[address] Marycarmen Rodriguez DO Work Phone: [facility] 12-02-2024 14:08-0400 Body temperature 98.8 [degF] Dr. Marycarmen Rodriguez DO Work Phone: [facility] 12-02-2024 14:08-0400 Diastolic blood pressure 72 mm[Hg] Dr. Marycarmen Rodriguez DO Work Phone: [facility] 12-02-2024 14:08-0400 Heart rate 78 /min Dr. Marycarmen Rodriguez DO Work Phone: [facility] 12-02-2024 14:08-0400 Respiratory rate 18 /min Dr. Marycarmen Rodriguez DO Work Phone: [facility] 12-02-2024 14:08-0400 SaO2% (BldA) [Mass fraction] 98 % Dr. Marycarmen Rodriguez DO Work Phone: [facility] 12-02-2024 14:08-0400 Systolic blood pressure 150 mm[Hg] Dr. Marycarmen Rodriguez DO Work Phone: [facility] 12-02-2024 14:01-0400 Inhaled oxygen flow rate 3 L/min Dr. Marycarmen Rodriguez DO Work Phone: [facility] 12-02-2024 08:32-0400 Body height 175.[address] Marycarmen Rodriguez DO Work Phone: [facility] 12-02-2024 08:32-0400 Body weight 109.[address] Marycarmen Rodriguez DO Work Phone: [facility] 12-02-2024 05:30-0400 Body mass index (BMI) [Ratio] 35.6 kg/m2 Dr. Marycarmen Rodriguez DO Work Phone: [facility] 11-30-2024 15:45-0400 Diastolic blood pressure 70 mm[Hg] Dr. Marycarmen Rodriguez DO Work Phone: [facility] 11-30-2024 15:45-0400 Systolic blood pressure 146 mm[Hg] Dr. Marycarmen Rodriguez DO Work Phone: [facility] 11-28-2024 09:15-0400 SaO2% (BldA) [Mass fraction] 94 % Dr. Marycarmen Rodriguez DO Work Phone: [facility] 11-28-2024 09:10-0400 Body temperature 97.5 [degF] Dr. Marycarmen Rodriguez DO Work Phone: [facility] 11-28-2024 09:10-0400 Diastolic blood pressure 64 mm[Hg] Dr. Marycarmen Rodriguez DO Work Phone: [facility] 11-28-2024 09:10-0400 Heart rate 86 /min Dr. Marycarmen Rodriguez DO Work Phone: [facility] 11-28-2024 09:10-0400 Respiratory rate 18 /min Dr. Marycarmen Rodriguez DO Work Phone: [facility] 11-28-2024 09:10-0400 Systolic blood pressure 129 mm[Hg] Dr. Marycarmen Rodriguez DO Work Phone: [facility] 11-28-2024 05:13-0400 Body mass index (BMI) [Ratio] 35.2 kg/m2 Dr. Marycarmen Rodriguez DO Work Phone: [facility] 11-28-2024 05:13-0400 Body weight 108.[address] Marycarmen Rodriguez DO Work Phone: [facility] 11-27-2024 15:54-0400 Body height 175.[address] Marycarmen Rodriguez DO Work Phone: [facility] 11-27-2024 15:54-0400 Body mass index (BMI) [Ratio] 35.4 kg/m2 Dr. Marycarmen Rodriguez DO Work Phone: [facility] 11-27-2024 15:54-0400 Body weight 108.[address] Marycarmen Rodriguez DO Work Phone: [facility] 11-27-2024 13:45-0400 Diastolic blood pressure 68 mm[Hg] Dr. Marycarmen Rodriguez DO Work Phone: [facility] 11-27-2024 13:45-0400 Heart rate 75 /min Dr. Marycarmen Rodriguez DO Work Phone: [facility] 11-27-2024 13:45-0400 Respiratory rate 21 /min Dr. Marycarmen Rodriguez DO Work Phone: [facility] 11-27-2024 13:45-0400 SaO2% (BldA) [Mass fraction] 95 % Dr. Marycarmen Rodriguez DO Work Phone: [facility] 11-27-2024 13:45-0400 Systolic blood pressure 115 mm[Hg] Dr. Marycarmen Rodriguez DO Work Phone: [facility] 11-26-2024 21:38-0400 Body temperature 98.1 [degF] Dr. Marycarmen Rodriguez DO Work Phone: [facility] 11-26-2024 21:38-0400 Diastolic blood pressure 68 mm[Hg] Dr. Marycarmen Rodriguez DO Work Phone: [facility] 11-26-2024 21:38-0400 Heart rate 68 /min Dr. Marycarmen Rodriguez DO Work Phone: [facility] 11-26-2024 21:38-0400 Respiratory rate 18 /min Dr. Marycarmen Rodriguez DO Work Phone: [facility] 11-26-2024 21:38-0400 SaO2% (BldA) [Mass fraction] 98 % Dr. Marycarmen Rodriguez DO Work Phone: [facility] 11-26-2024 21:38-0400 Systolic blood pressure 132 mm[Hg] Dr. Marycarmen Rodriguez DO Work Phone: [facility] 11-26-2024 18:03-0400 Inhaled oxygen flow rate 2 L/min Dr. Marycarmen Rodriguez DO Work Phone: [facility] 11-26-2024 17:37-0400 Body height 175.[address] Marycarmen Rodriguez DO Work Phone: [facility] 11-26-2024 17:37-0400 Body mass index (BMI) [Ratio] 37.3 kg/m2 Dr. Marycarmen Rodriguez DO Work Phone: [facility] 11-26-2024 17:37-0400 Body weight 114.[address] Marycarmen Rodriguez DO Work Phone: [facility] 11-22-2024 10:41-0400 Body mass index (BMI) [Ratio] 35.9 kg/m2 Dr. Marycarmen Rodriguez DO Work Phone: [facility] 11-22-2024 10:41-0400 Body weight 110.[address] Marycarmen Rodriguez DO Work Phone: [facility] 11-22-2024 10:41-0400 Diastolic blood pressure 62 mm[Hg] Dr. Marycarmen Rodriguez DO Work Phone: [facility] 11-22-2024 10:41-0400 Heart rate 66 /min Dr. Marycarmen Rodriguez DO Work Phone: [facility] 11-22-2024 10:41-0400 Respiratory rate 20 /min Dr. Marycarmen Rodriguez DO Work Phone: [facility] 11-22-2024 10:41-0400 Systolic blood pressure 107 mm[Hg] Dr. Marycarmen Rodriguez DO Work Phone: [facility] 10-31-2024 07:44-0400 Body mass index (BMI) [Ratio] 35.4 kg/m2 Dr. Marycarmen Rodriguez DO Work Phone: [facility] 10-31-2024 07:44-0400 Body temperature 97.1 [degF] Dr. Marycarmen Rodriguez DO Work Phone: [facility] 10-31-2024 07:44-0400 Body weight 108.[address] Marycarmen Rodriguez DO Work Phone: [facility] 10-31-2024 07:44-0400 Diastolic blood pressure 75 mm[Hg] Dr. Marycarmen Rodriguez DO Work Phone: [facility] 10-31-2024 07:44-0400 Heart rate 64 /min Dr. Marycarmen Rodriguez DO Work Phone: [facility] 10-31-2024 07:44-0400 Respiratory rate 20 /min Dr. Marycarmen Rodriguez DO Work Phone: [facility] 10-31-2024 07:44-0400 SaO2% (BldA) [Mass fraction] 97 % Dr. Marycarmen Rodriguez DO Work Phone: [facility] 10-31-2024 07:44-0400 Systolic blood pressure 135 mm[Hg] Dr. Marycarmen Rodriguez DO Work Phone: [facility] 10-25-2024 08:10-0400 Body height 175.[address] Marycarmen Rodriguez DO Work Phone: [facility] 10-25-2024 08:10-0400 Body mass index (BMI) [Ratio] 35.9 kg/m2 Dr. Marycarmen Rodriguez DO Work Phone: [facility] 10-25-2024 08:10-0400 Body weight 110.[address] Marycarmen Rodriguez DO Work Phone: [facility] 10-25-2024 08:10-0400 Diastolic blood pressure 85 mm[Hg] Dr. Marycarmen Rodriguez DO Work Phone: [facility] 10-25-2024 08:10-0400 Heart rate 85 /min Dr. Marycarmen Rodriguez DO Work Phone: [facility] 10-25-2024 08:10-0400 Respiratory rate 18 /min Dr. Marycarmen Rodriguez DO Work Phone: [facility] 10-25-2024 08:10-0400 Systolic blood pressure 121 mm[Hg] Dr. Marycarmen Rodriguez DO Work Phone: [facility] 09-20-2024 09:15-0400 Body height 175.[address] Marycarmen Rodriguez DO Work Phone: [facility] 09-20-2024 09:15-0400 Body mass index (BMI) [Ratio] 35.6 kg/m2 Dr. Marycarmen Rodriguez DO Work Phone: [facility] 09-20-2024 09:15-0400 Body temperature 96.8 [degF] Dr. Marycarmen Rodriguez DO Work Phone: [facility] 09-20-2024 09:15-0400 Body weight 109.[address] Marycarmen Rodriguez DO Work Phone: [facility] 09-20-2024 09:15-0400 Diastolic blood pressure 77 mm[Hg] Dr. Marycarmen Rodriguez DO Work Phone: [facility] 09-20-2024 09:15-0400 Heart rate 66 /min Dr. Marycarmen Rodriguez DO Work Phone: [facility] 09-20-2024 09:15-0400 Respiratory rate 18 /min Dr. Marycarmen Rodriguez DO Work Phone: [facility] 09-20-2024 09:15-0400 SaO2% (BldA) [Mass fraction] 97 % Dr. Marycarmen Rodriguez DO Work Phone: [facility] 09-20-2024 09:15-0400 Systolic blood pressure 121 mm[Hg] Dr. Marycarmen Rodriguez DO Work Phone: [facility] 07-18-2024 06:00-0400 Body height 175.[address] Marycarmen Rodriguez DO Work Phone: [facility] 07-18-2024 06:00-0400 Body weight 104.[address] Marycarmen Rodriguez DO Work Phone: [facility] 07-18-2024 06:00-0400 Heart rate 69 /min Dr. Marycarmen Rodriguez DO Work Phone: [facility] 07-18-2024 06:00-0400 SaO2% (BldA) [Mass fraction] 97 % Dr. Marycarmen Rodriguez DO Work Phone: [facility] 07-03-2024 08:35-0500 Body mass index (BMI) [Ratio] 36.6 kg/m2 Dr. Marycarmen Rodriguez DO Work Phone: [facility] 07-03-2024 08:35-0500 Body temperature 97.5 [degF] Dr. Marycarmen Rodriguez DO Work Phone: [facility] 07-03-2024 08:35-0500 Body weight 109.[address] Marycarmen Rodriguez DO Work Phone: [facility] 07-03-2024 08:35-0500 Diastolic blood pressure 77 mm[Hg] Dr. Marycarmen Rodriguez DO Work Phone: [facility] 07-03-2024 08:35-0500 Heart rate 72 /min Dr. Marycarmen Rodriguez DO Work Phone: [facility] 07-03-2024 08:35-0500 Respiratory rate 20 /min Dr. Marycarmen Rodriguez DO Work Phone: [facility] 07-03-2024 08:35-0500 SaO2% (BldA) [Mass fraction] 96 % Dr. Marycarmen Rodriguez DO Work Phone: [facility] 07-03-2024 08:35-0500 Systolic blood pressure 116 mm[Hg] Dr. Marycarmen Rodriguez DO Work Phone: [facility] 04-17-2024 15:55-0500 Body height [address] Marycarmen Rodriguez DO Work Phone: [facility] 04-17-2024 15:55-0500 Body mass index (BMI) [Ratio] 36.9 kg/m2 Dr. Marycarmen Rodriguez DO Work Phone: [facility] 04-17-2024 15:55-0500 Body weight 110.[address] Marycarmen Rodriguez DO Work Phone: [facility] 04-17-2024 15:55-0500 Diastolic blood pressure 53 mm[Hg] Dr. Marycarmen Rodriguez DO Work Phone: [facility] 04-17-2024 15:55-0500 Heart rate 70 /min Dr. Marycarmen Rodriguez DO Work Phone: [facility] 04-17-2024 15:55-0500 Respiratory rate 18 /min Dr. Marycarmen Rodriguez DO Work Phone: [facility] 04-17-2024 15:55-0500 SaO2% (BldA) [Mass fraction] 94 % Dr. Marycarmen Rodriguez DO Work Phone: [facility] 04-17-2024 15:55-0500 Systolic blood pressure 91 mm[Hg] Dr. Marycarmen Rodriguez DO Work Phone: [facility] 03-27-2024 10:17-0500 Diastolic blood pressure 79 mm[Hg] Dr. Marycarmen Rodriguez DO Work Phone: [facility] 03-27-2024 10:17-0500 Heart rate 67 /min Dr. Marycarmen Rodriguez DO Work Phone: [facility] 03-27-2024 10:17-0500 Respiratory rate 18 /min Dr. Marycarmen Rodriguez DO Work Phone: [facility] 03-27-2024 10:17-0500 Systolic blood pressure 134 mm[Hg] Dr. Marycarmen Rodriguez DO Work Phone: [facility] 03-20-2024 08:28-0500 Body mass index (BMI) [Ratio] 37.5 kg/m2 Dr. Marycarmen Rodriguez DO Work Phone: [facility] 03-20-2024 08:28-0500 Body weight 112.[address] Marycarmen Rodriguez DO Work Phone: [facility] 03-20-2024 08:28-0500 Diastolic blood pressure 89 mm[Hg] Dr. Marycarmen Rodriguez DO Work Phone: [facility] 03-20-2024 08:28-0500 Heart rate 61 /min Dr. Marycarmen Rodriguez DO Work Phone: [facility] 03-20-2024 08:28-0500 Respiratory rate 18 /min Dr. Marycarmen Rodriguez DO Work Phone: [facility] 03-20-2024 08:28-0500 Systolic blood pressure 141 mm[Hg] Dr. Marycarmen Rodriguez DO Work Phone: [facility] 12-21-2022 07:51-0400 Body height 172.[address] Marycarmen Rodriguez Work Phone: [facility] 12-21-2022 07:51-0400 Body weight 85.[address] Marycarmen Rodriguez Work Phone: [facility] 12-18-2022 08:27-0400 Body mass index (BMI) [Ratio] 28.7 kg/m2 Dr. Marycarmen Rodriguez Work Phone: [facility] 12-15-2022 13:03-0400 Body mass index (BMI) [Ratio] 28.7 kg/m2 Dr. Marycarmen Rodriguez Work Phone: [facility] 12-15-2022 13:03-0400 Body weight 85.[address] Marycarmen Rodriguez Work Phone: [facility] 12-15-2022 13:03-0400 Diastolic blood pressure 92 mm[Hg] Dr. Marycarmen Rodriguez Work Phone: [facility] 12-15-2022 13:03-0400 Heart rate 72 /min Dr. Marycarmen Rodriguez Work Phone: [facility] 12-15-2022 13:03-0400 Respiratory rate 16 /min Dr. Marycarmen Rodriguez Work Phone: [facility] 12-15-2022 13:03-0400 Systolic blood pressure 156 mm[Hg] Dr. Marycarmen Rodriguez Work Phone: [facility] 10-13-2022 10:59-0400 Body height 172.72 cm Marycarmen Marly [facility] 10-13-2022 10:59-0400 Body mass index (BMI) [Ratio] 25.4 kg/m2 Marycarmen Marly [facility] 10-13-2022 10:59-0400 Body weight 75.74 kg Marycarmen Marly [facility] 10-13-2022 10:59-0400 Diastolic blood pressure 75 mm[Hg] Marycarmen Marly [facility] 10-13-2022 10:59-0400 Heart rate 65 /min Marycarmen Marly [facility] 10-13-2022 10:59-0400 Respiratory rate 18 /min Marycarmen Marly [facility] 10-13-2022 10:59-0400 SaO2% (BldA) [Mass fraction] 94 % [facility] 10-13-2022 10:59-0400 Systolic blood pressure 143 mm[Hg] Marycarmen [facility] 09-21-2022 15:30-0400 Body mass index (BMI) [Ratio] 34.7 kg/m2 [facility] 09-21-2022 15:27-0400 Body temperature 98 [degF] Marycarmen [facility] 09-21-2022 15:27-0400 Diastolic blood pressure 84 mm[Hg] [facility] 09-21-2022 15:27-0400 Heart rate 79 /min Marycarmen Marly [facility] 09-21-2022 15:27-0400 Respiratory rate 17 /min [facility] 09-21-2022 15:27-0400 SaO2% (BldA) [Mass fraction] 96 % [facility] 09-21-2022 15:27-0400 Systolic blood pressure 143 mm[Hg] Marycarmen [facility] 09-21-2022 06:25-0400 Body weight 103.6 kg Marycarmen Marlydiogenes [facility] 09-19-2022 01:30-0400 Inhaled oxygen concentration 21 % Marycarmen Marly [facility] 09-01-2022 09:59-0400 Diastolic blood pressure 68 mm[Hg] Marycarmen Marly [facility] 09-01-2022 09:59-0400 Heart rate 49 /min Marycarmen Marly [facility] 09-01-2022 09:59-0400 Systolic blood pressure 127 mm[Hg] Marycarmen Marly [facility] 09-01-2022 09:57-0400 Body temperature 97.9 [degF] Marycarmen Marly [facility] 09-01-2022 09:57-0400 Respiratory rate 18 /min Marycarmen Marly [facility] 09-01-2022 09:57-0400 SaO2% (BldA) [Mass fraction] 93 % Marycarmen Marly [facility] 09-01-2022 04:08-0400 Body mass index (BMI) [Ratio] 35.2 kg/m2 Marycarmen Marly [facility] 09-01-2022 04:08-0400 Body weight 108.2 kg Marycarmen Marly [facility] 08-31-2022 11:42-0400 Body height 175.26 cm Marycarmen Marly [facility] 08-19-2022 10:01-0400 Body height 175.26 cm Marycarmen Marly [facility] 08-19-2022 10:01-0400 Body mass index (BMI) [Ratio] 35.4 kg/m2 Marycarmen Marly [facility] 08-19-2022 10:01-0400 Body weight 109.03 kg Marycarmen Marly [facility] 08-19-2022 10:01-0400 Diastolic blood pressure 79 mm[Hg] Marycarmen Marly [facility] 08-19-2022 10:01-0400 Heart rate 62 /min Marycarmen Marly [facility] 08-19-2022 10:01-0400 Respiratory rate 18 /min Marycarmen Marly [facility] 08-19-2022 10:01-0400 Systolic blood pressure 144 mm[Hg] Marycarmen SWAIN [facility] 04-16-2022 12:43-0500 Body height 175.[address] Marycarmen Rodriguez Work Phone: [facility] 04-16-2022 12:43-0500 Body mass index (BMI) [Ratio] 35.2 kg/m2 Dr. Marycarmen Rodriguez Work Phone: [facility] 04-16-2022 12:43-0500 Body temperature 97 [degF] Dr. Marycarmen Rodriguez Work Phone: [facility] 04-16-2022 12:43-0500 Body weight 108.[address] Marycarmen Rodriguez Work Phone: [facility] 04-16-2022 12:43-0500 Diastolic blood pressure 78 mm[Hg] Dr. Marycarmen Rodriguez Work Phone: [facility] 04-16-2022 12:43-0500 Heart rate 66 /min Dr. Marycarmen Rodriguez Work Phone: [facility] 04-16-2022 12:43-0500 Respiratory rate 18 /min Dr. Marycarmen Rodriguez Work Phone: [facility] 04-16-2022 12:43-0500 SaO2% (BldA) [Mass fraction] 94 % Dr. Marycarmen Rodriguez Work Phone: [facility] 04-16-2022 12:43-0500 Systolic blood pressure 125 mm[Hg] Dr. Marycarmen Rodriguez Work Phone: [facility] 04-14-2022 10:27-0500 Body mass index (BMI) [Ratio] 35.2 kg/m2 Dr. Marycarmen Rodriguez Work Phone: [facility] 04-14-2022 10:27-0500 Body weight 108.[address] Marycarmen Rodriguez Work Phone: [facility] 04-14-2022 10:27-0500 Diastolic blood pressure 68 mm[Hg] Dr. Marycarmen Rodriguez Work Phone: [facility] 04-14-2022 10:27-0500 Heart rate 64 /min Dr. Marycarmen Rodriguez Work Phone: [facility] 04-14-2022 10:27-0500 Respiratory rate 18 /min Dr. Marycarmen Rodriguez Work Phone: [facility] 04-14-2022 10:27-0500 Systolic blood pressure 130 mm[Hg] Dr. Marycarmen Rodriguez Work Phone: [facility] 03-27-2022 13:25-0500 Body temperature 97.9 [degF] Dr. Marycarmen Rodriguez Work Phone: [facility] 03-27-2022 13:25-0500 Diastolic blood pressure 86 mm[Hg] Dr. Marycarmen Rodriguez Work Phone: [facility] 03-27-2022 13:25-0500 Heart rate 86 /min Dr. Marycarmen Rodriguez Work Phone: [facility] 03-27-2022 13:25-0500 Respiratory rate 14 /min Dr. Marycarmen Rodriguez Work Phone: [facility] 03-27-2022 13:25-0500 SaO2% (BldA) [Mass fraction] 96 % Dr. Marycarmen Rodriguez Work Phone: [facility] 03-27-2022 13:25-0500 Systolic blood pressure 134 mm[Hg] Dr. Marycarmen Rodriguez Work Phone: [facility] 01-07-2022 11:07-0400 Body mass index (BMI) [Ratio] 34.9 kg/m2 Dr. Marycarmen Rodriguez Work Phone: [facility] Work Phone: 01-07-2022 11:07-0400 Body temperature 97.4 [degF] Dr. Marycarmen Rodriguez Work Phone: [facility] Work Phone: 01-07-2022 11:07-0400 Body weight 107.[address] Marycarmen Rodriguez Work Phone: [facility] Work Phone: 01-07-2022 11:07-0400 Diastolic blood pressure 87 mm[Hg] Dr. Marycarmen Rodriguez Work Phone: [facility] Work Phone: 01-07-2022 11:07-0400 Heart rate 60 /min Dr. Marycarmen Rodriguez Work Phone: [facility] Work Phone: 01-07-2022 11:07-0400 Respiratory rate 16 /min Dr. Marycarmen Rodriguez Work Phone: [facility] Work Phone: 01-07-2022 11:07-0400 SaO2% (BldA) [Mass fraction] 96 % Dr. Marycarmen Rodriguez Work Phone: [facility] Work Phone: 01-07-2022 11:07-0400 Systolic blood pressure 155 mm[Hg] Dr. Marycarmen Rodriguez Work Phone: [facility] Work Phone: 11-21-2021 10:24-0400 Body height 175.[address] Marycarmen Rodriguez Work Phone: [facility] Work Phone: 11-21-2021 10:24-0400 Body mass index (BMI) [Ratio] 34.9 kg/m2 Dr. Marycarmen Rodriguez Work Phone: [facility] Work Phone: 11-21-2021 10:24-0400 Body weight 107.[address] Marycarmen Rodriguez Work Phone: [facility] Work Phone: 11-21-2021 10:24-0400 Diastolic blood pressure 77 mm[Hg] Dr. Marycarmen Rodriguez Work Phone: [facility] Work Phone: 11-21-2021 10:24-0400 Heart rate 61 /min Dr. Marycarmen Rodriguez Work Phone: [facility] Work Phone: 11-21-2021 10:24-0400 Respiratory rate 18 /min Dr. Marycarmen Rodriguez Work Phone: [facility] Work Phone: 11-21-2021 10:24-0400 SaO2% (BldA) [Mass fraction] 97 % Dr. Marycarmen Rodriguez Work Phone: [facility] Work Phone: 11-21-2021 10:24-0400 Systolic blood pressure 138 mm[Hg] Dr. Marycarmen Rodriguez Work Phone: [facility] Work Phone: 11-16-2021 16:49-0400 Diastolic blood pressure 87 mm[Hg] Dr. Marycarmen Rodriguez Work Phone: [facility] Work Phone: 11-16-2021 16:49-0400 Heart rate 53 /min Dr. Marycarmen Rodriguez Work Phone: [facility] Work Phone: 11-16-2021 16:49-0400 Respiratory rate 16 /min Dr. Marycarmen Rodriguez Work Phone: [facility] Work Phone: 11-16-2021 16:49-0400 SaO2% (BldA) [Mass fraction] 93 % Dr. Marycarmen Rodriguez Work Phone: [facility] Work Phone: 11-16-2021 16:49-0400 Systolic blood pressure 117 mm[Hg] Dr. Marycarmen Rodriguez Work Phone: [facility] Work Phone: 11-16-2021 12:55-0400 Body mass index (BMI) [Ratio] 33.2 kg/m2 Dr. Marycarmen Rodriguez Work Phone: [facility] Work Phone: 11-16-2021 12:55-0400 Body temperature 97.6 [degF] Dr. Marycarmen Rodriguez Work Phone: [facility] Work Phone: 11-16-2021 12:55-0400 Body weight 102.[address] Marycarmen Rodriguez Work Phone: [facility] Work Phone: 09-16-2021 10:37-0400 Body height 175.[address] Marycarmen Rodriguez Work Phone: [facility] Work Phone: 09-16-2021 10:37-0400 Body mass index (BMI) [Ratio] 35.7 kg/m2 Dr. Marycarmen Rodriguez Work Phone: [facility] Work Phone: 09-16-2021 10:37-0400 Body weight 109.[address] Marycarmen Rodriguez Work Phone: [facility] Work Phone: 09-16-2021 10:37-0400 Diastolic blood pressure 69 mm[Hg] Dr. Marycarmen Rodriguez Work Phone: [facility] Work Phone: 09-16-2021 10:37-0400 Heart rate 50 /min Dr. Marycarmen Rodriguez Work Phone: [facility] Work Phone: 09-16-2021 10:37-0400 Respiratory rate 18 /min Dr. Marycarmen Rodriguez Work Phone: [facility] Work Phone: 09-16-2021 10:37-0400 Systolic blood pressure 122 mm[Hg] Dr. Marycarmen Rodriguez Work Phone: [facility] Work Phone: 08-01-2021 10:02-0400 Body mass index (BMI) [Ratio] 35.7 kg/m2 Dr. Marycarmen Rodriguez Work Phone: [facility] Work Phone: 08-01-2021 10:02-0400 Body weight 109.[address] Marycarmen Rodriguez Work Phone: [facility] Work Phone: 08-01-2021 10:02-0400 Diastolic blood pressure 81 mm[Hg] Dr. Marycarmen Rodriguez Work Phone: [facility] Work Phone: 08-01-2021 10:02-0400 Heart rate 59 /min Dr. Marycarmen Rodriguez Work Phone: [facility] Work Phone: 08-01-2021 10:02-0400 Respiratory rate 18 /min Dr. Marycarmen Rodriguez Work Phone: [facility] Work Phone: 08-01-2021 10:02-0400 SaO2% (BldA) [Mass fraction] 97 % Dr. Marycarmen Rodriguez Work Phone: [facility] Work Phone: 08-01-2021 10:02-0400 Systolic blood pressure 133 mm[Hg] Dr. Marycarmen Rodriguez Work Phone: [facility] Work Phone: 08-01-2021 10:02-0400 Body height 175.[address] Marycarmen Rodriguez Work Phone: [facility] Work Phone: 08-01-2021 10:02-0400 Body mass index (BMI) [Ratio] 35.7 kg/m2 Dr. Marycarmen Rodriguez Work Phone: [facility] Work Phone: 08-01-2021 10:02-0400 Body weight 109.[address] Marycarmen Rodriguez Work Phone: [facility] Work Phone: 08-01-2021 10:02-0400 Diastolic blood pressure 81 mm[Hg] Dr. Marycarmen Rodriguez Work Phone: [facility] Work Phone: 08-01-2021 10:02-0400 Heart rate 59 /min Dr. Marycarmen Rodriguez Work Phone: [facility] Work Phone: 08-01-2021 10:02-0400 Respiratory rate 18 /min Dr. Marycarmen Rodriguez Work Phone: [facility] Work Phone: 08-01-2021 10:02-0400 SaO2% (BldA) [Mass fraction] 97 % Dr. Marycarmen Rodriguez Work Phone: [facility] Work Phone: 08-01-2021 10:02-0400 Systolic blood pressure 133 mm[Hg] Dr. Marycarmen Rodriguez Work Phone: [facility] Work Phone: 06-10-2021 18:38-0500 Diastolic blood pressure 75 mm[Hg] Dr. Marycarmen Rodriguez Work Phone: [facility] Work Phone: 06-10-2021 18:38-0500 Heart rate 57 /min Dr. Marycarmen Rodriguez Work Phone: [facility] Work Phone: 06-10-2021 18:38-0500 Respiratory rate 14 /min Dr. Marycarmen Rodriguez Work Phone: [facility] Work Phone: 06-10-2021 18:38-0500 SaO2% (BldA) [Mass fraction] 96 % Dr. Marycarmen Rodriguez Work Phone: [facility] Work Phone: 06-10-2021 18:38-0500 Systolic blood pressure 121 mm[Hg] Dr. Marycarmen Rodriguez Work Phone: [facility] Work Phone: 06-10-2021 13:36-0500 Body mass index (BMI) [Ratio] 34 kg/m2 Dr. Marycarmen Rodriguez Work Phone: [facility] Work Phone: 06-10-2021 13:36-0500 Body temperature 97 [degF] Dr. Marycarmen Rodriguez Work Phone: [facility] Work Phone: 06-10-2021 13:36-0500 Body weight 104.[address] Marycarmen Rodriguez Work Phone: [facility] Work Phone: 05-19-2021 16:55-0500 Respiratory rate 16 /min Dr. Marycarmen Rodriguez Work Phone: [facility] Work Phone: 05-19-2021 14:43-0500 Body temperature 96.5 [degF] Dr. Marycarmen Rodriguez Work Phone: [facility] Work Phone: 05-19-2021 14:43-0500 Diastolic blood pressure 94 mm[Hg] Dr. Marycarmen Rodriguez Work Phone: [facility] Work Phone: 05-19-2021 14:43-0500 Heart rate 63 /min Dr. Marycarmen Rodriguez Work Phone: [facility] Work Phone: 05-19-2021 14:43-0500 SaO2% (BldA) [Mass fraction] 99 % Dr. Marycarmen Rodriguez Work Phone: [facility] Work Phone: 05-19-2021 14:43-0500 Systolic blood pressure 172 mm[Hg] Dr. Marycarmen Rodriguez Work Phone: [facility] Work Phone: 05-19-2021 14:42-0500 Body mass index (BMI) [Ratio] 34 kg/m2 Dr. Marycarmen Rodriguez Work Phone: [facility] Work Phone: 05-19-2021 14:42-0500 Body weight 104.[address] Marycarmen Rordiguez Work Phone: [facility] Work Phone: 12-26-2020 10:29-0400 Diastolic blood pressure 76 mm[Hg] Eladio Ingram MD Work Phone: [facility] 12-26-2020 10:29-0400 Systolic blood pressure 141 mm[Hg] Eladio Ingram MD Work Phone: [facility] 12-26-2020 10:24-0400 Body height 175.3 cm Eladio Ingram MD Work Phone: [facility] 12-26-2020 10:24-0400 Body mass index (BMI) [Ratio] 33.67 kg/m2 Eladio Ingram MD Work Phone: [facility] 12-26-2020 10:24-0400 Body weight 103.42 kg Eladio Ingram MD Work Phone: [facility] 12-26-2020 10:24-0400 Heart rate 59 /min Eladio Ingram MD Work Phone: [facility] 12-26-2020 10:24-0400 SaO2% (BldA) [Mass fraction] 95 % Eladio Ingram MD Work Phone: [facility] 10-09-2020 10:53-0400 Diastolic blood pressure 72 mm[Hg] Sagar Acuña HEALTH INFORMATION MANAGEMENT DIRECTOR Work Phone: [facility] 10-09-2020 10:53-0400 Systolic blood pressure 134 mm[Hg] Sagar Acuña HEALTH INFORMATION MANAGEMENT DIRECTOR Work Phone: [facility] 10-09-2020 09:59-0400 Body mass index (BMI) [Ratio] 34.6 kg/m2 Sagar Acuña HEALTH INFORMATION MANAGEMENT DIRECTOR Work Phone: [facility] 10-09-2020 09:59-0400 Body weight 106.28 kg Sagar Acuña HEALTH INFORMATION MANAGEMENT DIRECTOR Work Phone: [facility] 10-09-2020 09:59-0400 Heart rate 58 /min Sagar Acuña HEALTH INFORMATION MANAGEMENT DIRECTOR Work Phone: [facility] 10-09-2020 09:59-0400 Respiratory rate 16 /min Sagar Acuña CNP Work Phone: [facility] 10-09-2020 09:59-0400 SaO2% (BldA) [Mass fraction] 94 % Sagar Acuña CNP Work Phone: [facility] 12-17-2016 11:21-0400 BMI (Body Mass Index) 32.99 kg/m2 Eladio Ingram [facility] Work Phone: 12-17-2016 11:21-0400 BP Diastolic 82 mm[Hg] Eladio Ingram [facility] Work Phone: 12-17-2016 11:21-0400 BP Systolic 150 mm[Hg] Eladio Ingram [facility] Work Phone: 12-17-2016 11:21-0400 Height 175.3 cm Eladio Ingram [facility] Work Phone: 12-17-2016 11:21-0400 Pulse (Heart Rate) 70 /min Eladio Ingram [facility] Work Phone: 12-17-2016 11:21-0400 Pulse Oximetry 97 % Eladio Ingram [facility] Work Phone: 12-17-2016 11:21-0400 Weight 101.33 kg Eladio Ingram [facility] Work Phone: Encounters Encounter Date Encounter Type Care Provider Facility Start: 02-09-2025 ambulatory [facility] Facility: [facility] Start: 02-07-2025 ambulatory [facility] Facility: [facility] Start: 02-06-2025 End: 02-06-2025 ambulatory [facility] Facility:[facility] Start: 02-02-2025 ambulatory [facility] Facility: [facility] Start: 01-20-2025 End: 01-20-2025 Emergency department patient visit [facility] Facility:[facility] Start: 01-15-2025 End: 01-15-2025 ambulatory [facility] Facility:[facility] Start: 01-11-2025 End: 01-11-2025 ambulatory [facility] Facility:[facility] Start: 01-03-2025 End: 01-10-2025 Evaluation and management of inpatient DR JEFFREY SPIVEY MD [facility] Start: 01-03-2025 End: 01-03-2025 ambulatory [facility] Facility:[facility] Start: 01-03-2025 End: 01-03-2025 Emergency department patient visit [facility] Facility:[facility] Start: 01-02-2025 End: 01-02-2025 ambulatory [facility] Facility:[facility] Start: 01-01-2025 End: 01-01-2025 Dr. Marycarmen Rodriguez DO Work Phone: -Emergency Department Work Phone: Start: 01-01-2025 End: 01-01-2025 Emergency department patient visit Dr. Marycarmen Rodriguez DO Work Phone: -Emergency Department Start: 12-29-2024 ambulatory Marycarmen Marly Facility: [facility] Start: 12-28-2024 ambulatory [facility] Facility: [facility] Start: 12-28-[address] [facility] Jeanine Garcia Start: 12-27-2024 End: 12-27-2024 ambulatory [facility] Facility:[facility] Start: 12-27-2024 ambulatory [facility] Facility: [facility] Start: 12-27-[address] [facility] Jeanine Garcia Start: 12-26-2024 Dr. Eladio Melendez MD -[facility] Work Phone: Start: 12-25-2024 ambulatory [facility]: [facility] Start: 12-25-2024 Tyler [facility] Start: 12-25-2024 ambulatory Opal Wright [place] ty:[facility] Start: 12-25-2024 Dr. Eladio Melendez MD -[place] [place] [facility] Work Phone: Start: 12-24-2024 ambulatory [facility] Facility: [facility] Start: 12-24-2024 End: 12-26-2024 Evaluation and management of inpatient [facility] Facility:[facility] Start: 12-24-2024 End: 12-26-2024 Dr. Eladio Melendez MD -Progressive Care Unit Work Phone: Start: 12-21-2024 End: 12-21-2024 ambulatory [facility] Facility:[facility] Start: 12-21-[address] [facility] Jeanine Garcia Start: 12-20-2024 End: 12-20-2024 [facility] Facility:[facility] Start: 12-20-2024 End: 12-20-2024 Dr. [facility] Work [facility] Start: 12-20-2024 End: 12-20-2024 Emergency department patient visit Jody Servin Facility:[facility] Start: 12-20-2024 [facility] Facility: [facility] Start: 12-20-[address] [facility] Jeanine Garcia Start: 12-18-2024 End: 12-18-2024 ambulatory [facility] Facility:[facility] Start: 12-18-2024 ambulatory [facility] Facility: [facility] Start: 12-18-[address] [facility] Jeanine - [place] Start: 12-17-2024 Dr. Marycarmen collins DO -[facility] Work Phone: Start: 12-16-2024 Dr. Marycarmen collins DO -[facility] Work Phone: Start: 12-16-2024 Dr. Lance Rodriguez MD -[facility] Start: 12-15-2024 End: 12-17-2024 Evaluation and management of inpatient Dr. Marycarmen Rodriguez DO Work Phone: -Progressive Care Unit Start: 12-15-2024 ambulatory [facility] Facility:[facility] Start: 12-15-2024 End: 12-17-2024 Dr. Marycarmen Marlow DO -[facility] Unit Work Phone: Start: 12-13-2024 ambulatory [facility] Facility: [facility] Start: 12-13-[address] [facility] Jeanine - [place] Start: 12-12-2024 End: 12-12-[address] Marycarmen Rodriguez DO Work Phone: -[facility] [place] Start: 12-12-2024 End: 12-12-2024 Dr. Boyd Rock MD -[facility] [place] Work Phone: Start: 12-12-2024 End: 12-12-[address] Marycarmen Rodriguez DO Work Phone: -Laboratory Start: 12-12-2024 End: 12-12-2024 Gustabo Pérez SHEET TURNER-C -Laboratory Work Phone: Start: 12-12-2024 End: 12-12-2024 Gustabo Pérez SHEET TURNER-C -[facility] Work Phone: Start: 12-12-2024 End: 12-12-[address] Marycarmen Rodriguez DO Work Phone: -[facility] Start: 12-12-2024 End: 12-12-2024 ambulatory [facility] Facility:[facility] Start: 12-08-2024 Dr. Alex Sanon MD - [facility] Work Phone: Start: 12-07-2024 End: 12-07-2024 ambulatory [facility] Facility:[facility] Start: 12-07-2024 End: 12-07-2024 Tess Balderas SHEET TURNER-C -[facility] [place] Work Phone: Start: 12-07-2024 End: 12-08-[address] Marycarmen Rodriguez DO Work Phone: -Progressive Care Unit Start: 12-07-2024 End: 12-08-2024 ambulatory [facility] Facility:[facility] Start: 12-07-2024 End: 12-08-2024 Dr. Shaan Santos DO [facility] Inpatient Physicians Work Phone: Start: 12-06-2024 End: 12-06-2024 Dr. Marcin Araujo MD -Pulmonary Services/Neurology Work Phone: Start: 12-06-2024 End: 12-06-[address] Marycarmen Rodriguez DO Work Phone: -Pulmonary Services/Neurology Start: 12-06-2024 Dr. [facility] Work Phone: Start: 12-05-2024 Dr. Alex San[facility] Work Phone: Start: 12-05-[address] Marycarmen vera DO Work Phone: -[facility] Start: 12-05-2024 Dr. Marcin Araujo MD [facility] Start: 12-04-2024 Dr. Abraham Ridley [facility]icians Work Phone: Start: 12-04-2024 Dr. Marcin Araujo MD [facility] Start: 12-03-2024 Dr. Ramonita Herron MD -[facility] Work Phone: Start: 12-03-2024 Dr. Marcin Araujo MD [facility] Start: 12-03-2024 ambulatory [facility] Facility :[facility] Start: 12-03-2024 End: 12-06-2024 Evaluation and management of inpatient Dr. Marycarmen Rodriguez DO Work Phone: -Progressive Care Unit Start: 12-03-2024 End: 12-06-2024 Dr. Alex Sanon MD -Progressive Care Unit Work Phone: Start: 12-02-2024 Dr. Marcin Araujo MD [facility] Start: 12-02-2024 ambulatory [facility] Facility :[facility] Start: 12-02-2024 Evaluation and manag ement of inpatient Dr. Marycarmen Rodriguez DO Work Phone: -Intensive Care Unit Start: 12-02-2024 Dr. Abraham Ridley DO -Intensive Care Unit Work Phone: Start: 12-02-2024 Dr. Nickie Danielson DO [facility] Inpatient Physicians Work Phone: Start: 12-01-2024 Dr. Marcin Araujo MD [facility] Start: 11-30-2024 End: 12-02-2024 Evaluation and management of inpatient Dr. Marycarmen Rodriguez DO Work Phone: -Intensive Care Unit Start: 11-30-2024 ambulatory Abraham Cool ility:[facility] Start: 11-30-2024 End: 12-02-2024 Dr. Abraham Ridley DO -Intensive Care Unit Work Phone: Start: 11-27-2024 Dr. Jose Hay MD [facility] Start: 11-27-[address] Marycarmen vera DO Work Phone: [facility] Start: 11-27-2024 End: 11-28-2024 ambulatory Jose Hay Facility:[facility] Start: 11-27-2024 End: 11-28-[address] [...] Dr. Marycarmen Rodriguez DO Work Phone: -Radiology [facility] Start: 11-22-2024 End: 11-22-2024 Gustabo Pérez SHEET TURNER-C -Radiology [facility] Work Phone: Start: 11-22-2024 End: 11-22-2024 Gustabo Pérez SHEET TURNER-C -[place] [facility] Work Phone: Start: 11-22-2024 End: 11-22-[address] Marycarmen Rodriguez DO Work Phone: -[facility] Start: 11-22-2024 End: 11-22-2024 ambulatory Gustabo Pérez SHEET TURNER Facility:[facility] Start: 11-20-2024 End: 11-20-[address] Marycarmen Rodriguez DO Work Phone: -Radiology [facility] Start: 11-20-2024 End: 11-20-2024 Dr. Brooks Carpenter MD -Radiology [facility] Work Phone: Start: 11-20-2024 End: 11-20-2024 ambulatory Brooks Carpenter Facility:[facility] Start: 11-13-2024 ambulatory Gustabo Pérez SHEET TURNER Facility :[facility] Start: 11-13-2024 Non-patient / Non-visit Dr. Jose colon MD -[facility] Start: 11-13-2024 Dr. Jose Hay MD -[facility] Start: 11-10-2024 End: 11-10-[address] Marycarmen Rodriguez DO Work Phone: -Sleep Lab Start: 11-10-2024 End: 11-10-2024 Patient encounter procedure SHEET TURNER Maren Olivas -Sleep Lab Work Phone: Start: 11-10-2024 End: 11-10-2024 SHEET TURNER Maren Olivas -Sleep Lab Work Phone: Start: 11-10-2024 ambulatory Gustabo Pérez SHEET TURNER Facility :[facility] Start: 11-10-2024 Non-patient / Non-visit Dr. Lance pereira MD -[facility] Work Phone: Start: 11-10-2024 Dr. Lance Rodriguez MD -[facility] Work Phone: Start: 11-10-2024 End: 11-10-[address] Marycarmen Rodriguez DO Work Phone: -Cardiovascular Services Start: 11-10-2024 End: 11-10-2024 Patient encounter procedure Gustabo Pérez SHEET TURNER-C -Cardiovascular Services Work Phone: Start: 11-10-2024 End: 11-10-2024 Gustabo Pérez SHEET TURNER-C -Cardiovascular Services Work Phone: Start: 11-09-2024 End: 11-10-[address] Marycarmen Rodriguez DO Work Phone: -Laboratory Ritesh Calvillo [facility] Start: 11-09-2024 End: 11-09-[address] Marycarmen Rodriguez DO -Laboratory Ritesh WONG Start: 11-09-2024 End: 11-09-2024 Dr. Marycarmen Rodriguez DO -Laboratory Ritesh MORSE Start: 11-09-2024 End: 11-09-2024 ambulatory Marycarmen Rodriguez Facility:[facility] Start: 10-31-2024 End: 10-31-2024 Patient encounter procedure SHEET TURNER Maren Olivas -[place] [facility] Work Phone: Start: 10-31-2024 End: 10-31-2024 SHEET TURNER Maren Olivas -[place] [facility] Work Phone: Start: 10-31-2024 End: 10-31-[address] Marycarmen Rodriguez DO Work Phone: -[place] [facility] Start: 10-26-2024 End: 10-26-[address] Marycarmen Rodriguez DO Work Phone: -Sleep Lab Start: 10-26-2024 End: 10-26-2024 Patient encounter procedure Marni Horn SHEET TURNER-C -Sleep Lab Work Phone: Start: 10-26-2024 End: 10-26-2024 Marni Horn SHEET TURNER-C -Sleep Lab Work Phone: Start: 10-25-2024 End: 10-25-2024 Patient encounter procedure Gustabo Pérez SHEET TURNER-C -[facility] Work Phone: Start: 10-25-2024 End: 10-25-2024 Gustabo Pérez SHEET TURNER-C -[facility] Work Phone: Start: 10-25-2024 End: 10-26-[address] Marycarmen Rodriguez DO Work Phone: [facility] Work Phone: Start: 10-18-2024 End: 10-18-[address] Marycarmen Rodriguez DO Work Phone: [facility] Work Phone: Start: 10-18-2024 End: 10-18-2024 Patient encounter procedure Marni Horn SHEET TURNER-C -Sleep Lab Work Phone: Start: 10-18-2024 End: 10-18-2024 Marni Horn SHEET TURNER-C -Sleep Lab Work Phone: Start: 10-18-2024 End: 10-18-[address] Marycarmen Rodriguez DO Work Phone: [facility] Work Phone: Start: 10-18-2024 End: 10-18-[address] Brooks Carpenter MD -Laboratory Work Phone: Start: 10-18-2024 End: 10-18-2024 Dr. Brooks Carpenter MD -Laboratory Work Phone: Start: 10-18-2024 End: 10-18-2024 ambulatory [facility] Facility:[facility] Start: 09-29-2024 End: 09-29-[address] Marycarmen Rodriguez DO Work Phone: [facility] Work Phone: Start: 09-29-2024 End: 09-29-[address] Marcyarmen Rodriguez DO -Laboratory [place] Work Phone: Start: 09-29-2024 End: 09-29-2024 Dr. [facility] Start: 09-29-2024 End: 09-29-2024 ambulatory [facility] Facility:[facility] Start: 09-22-2024 End: 09-22-[address] Marycarmen Rodriguez DO Work Phone: [facility] Work Phone: Start: 09-22-2024 End: 09-22-2024 Patient encounter procedure Marni Horn SHEET TURNER-C -Sleep Lab Work Phone: Start: 09-22-2024 End: 09-22-2024 Marni Horn SHEET TURNER-C -Sleep Lab Work Phone: Start: 09-22-2024 End: 09-22-2024 ambulatory [facility] Facility:[facility] Start: 09-20-2024 End: 09-20-[address] Marycarmen Rodriguez DO Work Phone: [facility] Work Phone: Start: 09-20-2024 End: 09-20-2024 Patient encounter procedure ELIAZAR Olivas -Laboratory Work Phone: Start: 09-20-2024 End: 09-20-2024 SHEET TURNER Maren Messijason -Laboratory Work Phone: Start: 09-20-2024 End: 09-20-2024 Patient encounter procedure SHEET TURNER aMren Olivas -[place] [facility] Work Phone: Start: 09-20-2024 End: 09-20-2024 SHEET TURNER Maren Brendon -[place] [facility] Work Phone: Start: 09-20-2024 End: 09-20-[address] Marycarmen Rodriguez DO Work Phone: [facility] Work Phone: Start: 09-20-2024 End: 09-20-2024 ambulatory [facility] Facility:[facility] Start: 08-03-2024 End: 08-03-[address] Marycarmen Rodriguez DO Work Phone: [facility] Work Phone: Start: 08-03-2024 End: 08-03-2024 Patient encounter procedure Marni Horn SHEET TURNER-C -Sleep Lab Work Phone: Start: 08-03-2024 End: 08-03-2024 Marni Horn SHEET TURNER-C -Sleep Lab Work Phone: Start: 08-03-2024 End: 08-03-2024 ambulatory [facility] Facility:[facility] Start: 07-18-2024 ambulatory [facility] Facility: [facility] Start: 07-18-2024 Non-patient / Non-visit Dr. Zen schultz DO -[facility] Start: 07-18-2024 End: 07-18-[address] Mayrcarmen Rodriguez DO Work Phone: [facility] Work Phone: Start: 07-18-2024 End: 07-18-2024 Patient encounter procedure Marni Horn SHEET TURNER-C -Pulmonary Services/Neurology Work Phone: Start: 07-17-2024 Non-patient / Non-visit Dr. Zen schultz DO -[facility] Start: 07-17-2024 End: 07-18-[address] Marycarmen Rdoriguez DO Work Phone: [facility] Work Phone: Start: 07-17-2024 End: 07-17-2024 Patient encounter procedure Marni POOL -Sleep Lab Work Phone: Start: 07-17-2024 End: 07-17-2024 ambulatory Marycarmen Marly Facility:[facility] Start: 07-07-2024 End: 07-07-[address] Marycarmen Rodriguez DO Work Phone: [facility] Work Phone: Start: 07-07-2024 End: 07-07-2024 Patient encounter procedure Marni POOL -Sleep Lab Work Phone: Start: 07-07-2024 End: 07-07-2024 ambulatory Marycarmen Marly Facility:[facility] Start: 07-03-2024 End: 07-03-2024 Patient encounter procedure Marni POOL -[place] [facility] Work Phone: Start: 07-03-2024 End: 07-03-2024 ambulatory Marycarmen Marly Facility:[facility] Start: 06-30-2024 End: 06-30-[address] Marycarmen Rodriguez DO Work Phone: [facility] Work Phone: Start: 06-30-2024 End: 06-30-[address] Marycarmen Rodriguez DO -Laboratory, [facility] Start: 06-30-2024 End: 06-30-2024 ambulatory Marycarmen Marly Facility:[facility] Start: 04-17-2024 End: 04-17-2024 Patient encounter procedure Gustabo Pérez SHEET TURNER-C -[facility] Work Phone: Start: 04-17-2024 End: 04-17-2024 ambulatory Marycarmen Rodriguez Facility:[facility] Start: 04-17-2024 End: 04-17-2024 ambulatory [facility] Facility:[facility] Start: 03-27-2024 End: 03-27-[address] Jose Hay MD -[facility] Work Phone: Start: 03-27-2024 End: 03-27-2024 ambulatory [facility] Facility:[facility] Start: 03-23-2024 End: 03-23-[address] Marycarmen Rodriguez -Mayito Martinieye Karli [facility] Start: 03-23-2024 End: 03-23-2024 ambulatory [facility] Facility:[facility] Start: 03-20-2024 End: 03-20-[address] Jose Hay MD -[facility] Work Phone: Start: 03-20-2024 End: 03-20-2024 ambulatory [facility] Facility:[facility] Start: 05-07-2023 End: 05-07-2023 ambulatory [facility] Work Phone: Start: 05-07-2023 End: 05-07-2023 [facility] Start: 12-29-2022 Non-patient / Non-visit Dr. Ap Rodriguez Work Phone: [facility] Work Phone: Start: 12-28-2022 Non-patient / Non-visit Dr. Ap Rodriguez Work Phone: [facility] Start: 12-28-2022 End: 12-28-[address] Marycarmen Rodriguez Work Phone: [facility] Work Phone: Start: 12-28-2022 End: 12-28-[address] Marycarmen Rodriguez Work Phone: [facility]-Cardiovascul ar Services Work Phone: Start: 12-21-2022 End: 12-21-2022 Admission to same day surgery center Dr. Marycarmen Rodriguez Work Phone: [facility]-[employer] Functional Analyst/Special Procedures Work Phone: Start: 12-21-2022 End: 12-21-[address] Marycarmen Rodriguez Work Phone: [facility] Work Phone: Start: 12-15-2022 End: 12-15-[address] Marycarmen Rodriguez Work Phone: [facility] Work Phone: Start: 12-15-2022 End: 12-15-[address] Marycarmen Rodriguez Work Phone: [facility]-Laboratory Work Phone: Start: 12-15-2022 End: 12-15-[address] Marycarmen Rodriguez Work Phone: [facility] Work Phone: Start: 10-16-2022 End: 10-16-2022 ambulatory Marycarmen Rdoriguez [facility] Work Phone: Start: 10-16-2022 End: 10-16-2022 Patient encounter procedure Marycarmen SWAIN [facility]-Pulmonary Services/Neurology Start: 10-13-2022 End: 10-13-2022 ambulatory Marycarmen SWAIN [facility] Work Phone: Start: 10-13-2022 End: 10-13-2022 Patient encounter procedure Marycarmen SWAIN [facility] Start: 09-21-2022 Non-patient / Non-visit Marycarmen gifford [facility] Inpatient Physicians Start: 09-20-2022 Non-patient / Non-visit Marycarmen gifford [facility] Inpatient Physicians Start: 09-19-2022 Non-patient / Non-visit Marycarmen gifford [facility] Inpatient Physicians Start: 09-18-2022 Non-patient / Non-visit Marycarmen gifford [facility] Start: 09-17-2022 End: 09-17-2022 Non-patient / Non-visit Marycarmen SWAIN [facility] Inpatient Physicians Start: 09-17-2022 End: 09-21-2022 Evaluation and management of [facility] Start: 09-09-2022 Non-patient / Non-visit Marycarmen gifford [facility] Start: 09-01-2022 Non-patient / Non-visit Marycarmen gifford [facility] Start: 08-31-2022 End: 08-31-2022 Non-patient / Non-visit Marycarmen Rodriguez [facility] Start: 08-31-2022 Non-patient / Non-visit Marycarmen gifford [facility] Start: 08-31-2022 End: 09-01-2022 Evaluation and management of inpatient Marycarmen Rodriguez [facility] Start: 08-31-2022 End: 09-01-2022 observation encounter [facility] Work Phone: Start: 08-19-2022 End: 08-19-2022 ambulatory Marycarmen Marly [facility] Work Phone: Start: 08-19-2022 End: 08-19-2022 Patient encounter procedure Marycarmen Marly [facility] Start: 08-11-2022 Non-patient / Non-visit Marycarmen gifford [facility] Start: 06-11-2022 End: 06-11-[address] Marycarmen Rodriguez Work Phone: [facility] Work Phone: Start: 06-11-2022 End: 06-11-[address] Marycarmen Rodriguez [facility] Start: 04-21-2022 Non-patient / Non-visit Dr. Ap Rodriguez Work Phone: [facility] Start: 04-21-2022 End: 04-21-[address] Marycarmen Rodriguez Work Phone: [facility] Work Phone: Start: 04-21-2022 End: 04-21-[address] Marycarmen Rodriguez Work Phone: [facility]-Cardiovascul ar Services Start: 04-16-2022 End: 04-16-[address] Marycarmen Rodriguez [facility]: [facility] Start: 04-14-2022 End: 04-14-[address] Marycarmen Rodriguez Work Phone: [facility] Work Phone: Start: 04-14-2022 End: 04-14-[address] Marycarmen Rodriguez Work Phone: [facility] Start: 04-14-2022 End: 04-14-[address] Marycarmen Rodriguez Work Phone: [facility] Start: 03-27-2022 End: 03-27-[address] Marycarmen Rodriguez Work Phone: [facility] Start: 01-20-2022 End: 01-20-[address] Marycarmen Rodriguez Work Phone: [facility]-Cat Scan, [facility] Start: 01-07-2022 End: 01-07-[address] Marycarmen Rodriguez [facility] Start: 11-27-2021 Non-patient / Non-visit Dr. Ap Rodriguez Work Phone: [facility] Start: 11-26-2021 End: 11-26-[address] Marycarmen Rodriguez Work Phone: [facility]-Pulmonary Services/Neurology Start: 11-21-2021 End: 11-21-[address] Marycarmen Rodriguez Work Phone: [facility] Start: 11-16-2021 End: 11-16-2021 Emergency department patient visit Dr. Marycarmen Rodriguez Work Phone: [facility]-Emergency Department Start: 10-28-2021 End: 10-28-[address] Marycarmen Rodriguez Work Phone: [facility] Start: 09-16-2021 End: 09-16-[address] Marcyarmen Rodriguez [facility] Phone: [facility] Start: 09-16-2021 End: 09-16-[address] Marycarmen Rodriguez Work Phone: [facility] Start: 08-15-2021 Non-patient / Non-visit Dr. Ap Rodriguez Work Phone: [facility] Start: 08-15-2021 Non-patient / Non-visit Dr. Ap Rodriguez Work Phone: [facility] Start: 08-15-2021 End: 08-15-[address] Marycarmen Rodriguez Work Phone: [facility]-Cardiovascul ar Services Start: 08-01-2021 End: 08-01-[address] Marycarmen Rodriguez Work Phone: [facility] Start: 06-10-2021 End: 06-10-2021 Emergency department patient visit Dr. Marycarmen Rodriguez Work Phone: [facility]-Emergency Department Start: 05-19-2021 End: 05-19-2021 Emergency department patient visit Dr. Marycarmen Rodriguez Work Phone: [facility]-Emergency Department Start: 05-16-2021 End: 05-16-[address] 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) (Primary Dx) Start: 12-31-2020 [facility]io Ingram MD Work Phone: [facility] Comment on above: Chest pain, unspecif ied type (Primary Dx) Start: 12-26-2020 End: 12-30-2020 Orders Only Justa Simental RN [facility] Office Start: 12-26-2020 End: 12-26-2020 Office outpatient visit 25 minutes Mayrcarmen Rodriguez DO Work Phone: [facility] Comment on above: Essential hypertensi on (Primary Dx); 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, unspecified whether [place] tribe or transplanted heart (HCC); 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 (HCC); Mixed hyperlipidemia Start: 12-18-2020 ambulatory MIN HOWARD [facility] Start: 10-15-2020 End: 10-16-2020 ambulatory [facility] Start: 10-15-2020 End: 10-15-2020 Subsequent hospital visit by physician Eladio Ingram MD Work Phone: [facility] Comment on above: Arrived Start: 10-10-2020 ambulatory SAGAR ACUÑA [facility] Ambulatory Start: 10-09-2020 End: 10-09-2020 Orders Only Sagar Acuña HEALTH INFORMATION MANAGEMENT DIRECTOR Work Phone: [facility] Office Comment on above: DEAN (dyspnea on exer tion) (Primary Dx) Start: 10-09-2020 End: 10-09-2020 Office outpatient new 45 minutes Sagar Acuña HEALTH INFORMATION MANAGEMENT DIRECTOR Work Phone: [facility] Office Comment on above: DEAN (dyspnea on exer tion); Essential hypertension; Type 2 diabetes mellitus without complication, without long-term current use of insulin (HCC); MATTHEW (obstructive sleep apnea); Coronary artery disease involving [place] coronary artery of [place] heart without angina pectoris Start: 10-04-2020 End: 10-04-2020 Orders Only Deisi March RN [facility] Office Comment on above: Shortness of breath (Primary Dx) Start: 12-17-2016 Office/outpatient vi sit, est, level 4 Eladio Ingram Work Phone: [facility] Start: 11-28-2016 End: 11-28-2016 Patient encounter procedure [facility] Procedures Date Procedure Procedure Detail Performing [...] 12-28-2024 Mean corpuscular hemoglobin concentration determination Dr. Marycarmen Rodriguez DO Work Phone: Start: 12-28-2024 Nucleated [...] Work Phone: Start: 12-21-2024 Blood count smear rscp w/mnl difrntl wbc [...] Work Phone: Start: 12-20-2024 Blood count smear rscp w/mnl difrntl wbc [...] Triacylglycerol lipa se measurement Dr. Marycarmen Rodriguez [employer] Phone: Start: 12-20-2024 Blood count smear mc rscp w/mnl difrntl wbc count Dr. Marycarmen Rodriguez DO Work Phone: Start: 12-20-2024 Mean corpuscular hemoglobin concentration determination Dr. Marycarmen Rodriguez DO [employer] Phone: Start: 12-20-2024 Nucleated red blood cell count procedure Dr. Marycarmen Rodriguez DO Work Phone: Start: 12-20-2024 Platelet mean volume determination Dr. Marycarmen Rodriguez [employer] Work Phone: Start: 12-18-2024 Clostridium difficil e detection Dr. Marycarmen Rodriguez [employer] Work Phone: Start: 12-16-2024 Blood count smear mc rscp w/mnl difrntl wbc count Dr. Marycarmen Rodriguez [employer] Work Phone: Start: 12-16-[address] Marycarmen Rodriguez [employer] Work Phone: Start: 12-16-2024 Mean corpuscular hemoglobin concentration determination Dr. Marycarmen Rodriguez DO Work Phone: Start: 12-16-2024 Nucleated red blood cell count procedure Dr. Marycarmen Rodriguez [employer] Work Phone: Start: 12-16-2024 Platelet mean volume determination Dr. Marycarmen Rodriguez DO Work Phone: Start: 12-15-2024 Plain chest X-ray Dr. Tricia Rodriguez [employer] Phone: Start: 12-15-2024 Calculation of international normalized [...] Phone: Start: 12-02-2024 Coagulation time, activated Dr. aMrycarmen Rodriguez DO Work Phone: Start: 12-02-2024 Blood [...] Work Phone: Comment on above: Test Ordered: [id number] Screen, Urine Negative ng/mL UI Reference Range: Rgflsu=463Abgsaqsrnko test includes Amphetamine and Methamphetamine.Barbiturates Negative ng/mL UI Reference Range: Voqzwa=205Jcqpjscmdtrpjsp Negative ng/mL UI Reference Range: Enthzy=312Ffvcqqf (Metab.), Urine Negative ng/mL UI Reference Range: Pugnrw=870Wrccoyw Note: ng/mL UI See Final Results Reference Range: Uspswg=905Ksegyv test includes Codeine, Morphine, Hydromorphone, Hydrocodone.Opiates Positive [A ] UI Reference Range: Esijfl=152Cggsxt test includes Codeine, Morphine, Hydromorphone, Hydrocodone.Codeine Negative UI Reference Range: Damrip=504Tmaqtoks Negative UI Reference Range: Nlrnbv=412Iylvoiqizbxam Negative UI Reference Range: Jxnnbk=464Rykachhcejb Positive [A ] UI Reference Range: .Hydrocodone Conf, MS, UR 349 ng/mL UI Reference Range: Uohwzo=6082-Clozzemxghxzuc, Urine Negative ng/mL UI Reference Range: Cutoff=10Oxycodone/Oxymorphone, Urine Negative ng/mL UI Reference Range: Gqzrkw=406Fhml includes Oxycodone and OxymorphonePCP, Urine Negative ng/mL UI Reference Range: Cutoff=25Methadone Screen, Urine Negative ng/mL UI Reference Range: Bwblot=072Dajowtxdffdx, Urine Negative ng/mL UI Reference Range: Xbuunr=877Srhodrbb, Urine Negative ng/mL UI Reference Range: Cutoff=2.0Test includes Fentanyl and NorfentanylThis test was developed and its performance characteristicsdetermined by [employer]. It has not been cleared orapproved by the Food and Drug Administration.Tramadol Negative ng/mL UI Reference Range: Norjlp=138Zoubafbrterpl, Urine Negative ng/mL UI Reference Range: Cutoff=10Creatinine, Urine 36.9 mg/dL UI Reference Range: 20.0-300.0pH, Urine 6.1 UI Reference Range: 4.5-8.9Performed at: - [facility] [id number] [place], [place] [id number] Director: Erik Wallis PhD, Phone: [phone] at: [facility] [employer] [id number] Director: Bharath Hawthorne PhD, Phone: [phone] Start: 10-18-[address] Marycarmen [...] Phone: Start: 09-21-2022 Viral antigen assay Matilda Mandelchuy SWAIN Start: 09-19-2022 CT of head without contrast Marycarmen SWAIN Start: 09-19-2022 MRI of cervical spine Tricia tashi [facility] Start: 09-17-2022 MRI of brain without contrast Marycarmen Mraly [facility]WAIN Start: 09-17-2022 CT angiography of he ad and neck Marycarmen Marly [facility] Start: 09-17-2022 CT of head without [...] Start: 10-15-2020 TTE w or wo fol wcon,Candida Ingram MD Work Phone: Start: 10-09-2020 Ecg routine ecg w/le ast 12 lds w/i&r Sagar Acuña HEALTH INFORMATION MANAGEMENT DIRECTOR Work Phone: Start: 08-18-2018 History of [...] multiple wires and attempts. Procedure aborted. 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7160GSV-DSRP-Vn and Stent-Mid RCA x 2 Multi Link Mini Vision Rx Stent 4.0 x 28 mm 01/21/[address] JEFFREY SPIVEY MD Prostatectomy planned DR ROCIO SPIVEY MD Tonsillectomy DR JEFFREY SPIVEY MD Tx devices design & construction intermediate DR JEFFREY SPIVEY MD Plan of Treatment Date Care Activity Detail Author Start: 01-01-2025 [facility] Start: 01-01-2025 [facility] Start: 12-26-2024 Patient discharge [facility] Start: 12-25-2024 End: 12-26-2024 [facility] Start: 12-25-2024 Continuous positive airway pressure ventilation treatment [facility] Start: 12-24-2024 End: 12-25-2024 [facility] Start: 12-24-2024 Verification routine [facility] Start: 12-24-2024 Application of intermittent pneumatic compression device [facility] Start: 12-24-2024 Following clinical pathway protocol [facility] Start: 12-24-2024 Assessment of risk of venous thromboembolism [facility] Start: 12-24-[address] [facility] Start: 12-24-2024 Fall prevention [facility] Start: 12-24-2024 Inhalation therapy procedure [facility] Start: 12-24-2024 Insertion of catheter into peripheral vein [facility] Start: 12-24-2024 Introduction of urinary catheter [facility] Start: 12-24-2024 Measuring intake and output [facility] Start: 12-24-[address] [facility] Start: 12-24-2024 Oxygen therapy [facility] Start: 12-24-2024 Providing care according to standard [facility] Start: 12-24-2024 Provision of activity privileges [facility] Start: 12-24-2024 Referral to gastroenterology service [facility] Start: 12-24-2024 Referral to occupational therapist [facility] Start: 12-24-2024 Referral to service [facility] Start: 12-24-2024 Admission procedure [facility] Start: 12-24-2024 [facility] Start: 12-20-2024 End: 12-20-2024 [facility] Start: 12-20-2024 [facility] Start: 12-17-2024 Patient discharge [facility] Start: 12-16-2024 [facility] Start: 12-15-2024 Dual pressure spontaneous ventilation support [facility] Start: 12-15-2024 Assessment of risk of venous thromboembolism [facility] Start: 12-15-[address] [facility] Start: 12-15-[address] [facility] Start: 12-15-2024 Incentive spirometry [facility] Start: 12-15-2024 Insertion of catheter into peripheral vein [facility] Start: 12-15-2024 Measuring intake and output [facility] Start: 12-15-[address] [facility] Start: 12-15-2024 Providing care according to standard [facility] Start: 12-15-2024 Provision of activity privileges [facility] Start: 12-15-2024 Referral to seamer elastic band [facility] Start: 12-15-2024 Referral to occupational therapist [facility] Start: 12-15-2024 Referral to service [facility] Start: 12-15-2024 Tobacco use cessation education [facility] Start: 12-15-2024 End: 12-15-2024 [facility] Start: 12-15-2024 Following clinical pathway protocol [facility] Start: 12-15-2024 Admission procedure [facility] Start: 12-15-2024 [facility] Start: 12-15-2024 Patient referral to dietitian [facility] Start: 12-08-2024 Patient discharge [facility] Start: 12-07-2024 Following clinical pathway protocol [facility] Start: 12-07-2024 Assessment of risk of venous thromboembolism [facility] Start: 12-07-[address] [facility] Start: 12-07-2024 Inhalation therapy procedure [facility] Start: 12-07-2024 Insertion of catheter into peripheral vein [facility] Start: 12-07-2024 Measuring intake and output [facility] Start: 12-07-[address] [facility] Start: 12-07-2024 Providing care according to standard [facility] Start: 12-07-2024 Provision of activity privileges [facility] Start: 12-07-2024 Referral to occupational therapist [facility] Start: 12-07-2024 Referral to service [facility] Start: 12-07-2024 End: 12-07-2024 [facility] Start: 12-07-[address] [facility] Start: 12-07-2024 Verification routine [facility] Start: 12-07-2024 Admission procedure [facility] Start: 12-07-2024 Hospital admission, emergency, from emergency room, medical nature [facility] Start: 12-07-2024 [facility] Start: 12-07-2024 [facility] Start: 12-07-2024 Dual pressure spontaneous ventilation support [facility] Start: 12-06-2024 Patient discharge [facility] Start: 12-05-2024 Referral to occupational therapist [facility] Start: 12-05-2024 Referral to service [facility] Start: 12-03-2024 Electrocardiographic procedure [facility] Start: 12-03-2024 Referral to seamer elastic band [facility] Start: 12-03-2024 Verification routine [facility] Start: 12-03-2024 Admission procedure [facility] Start: 12-02-2024 End: 12-02-2024 [facility] Start: 12-02-2024 Following clinical pathway protocol [facility] Start: 12-02-[address] [facility] Start: 12-02-2024 Patient education [facility] Start: 12-02-2024 Provision of activity privileges [facility] Start: 12-02-2024 Pulse taking [facility] Start: 12-02-2024 Taking patient vital signs [facility] Start: 12-02-2024 Wound care [facility] Start: 12-02-2024 Oxygen therapy [facility] Start: 12-02-2024 Dual pressure spontaneous ventilation support [facility] Start: 12-02-2024 End: 12-02-2024 Hospital admission, emergency, from emergency room, medical nature [facility] Start: 12-02-2024 [facility] Start: 12-02-2024 Patient discharge [facility] Start: 12-02-2024 Electrocardiographic procedure [facility] Start: 12-02-2024 Magnetic resonance angiography of head without contrast [facility] Start: 12-02-2024 Magnetic resonance angiography of neck without contrast [facility] Start: 12-02-2024 MRA Head vessels WO contrast [facility] Start: 12-02-2024 MRA Neck vessels WO contrast [facility] Start: 12-01-2024 Vital signs measurements [facility] Start: 12-01-2024 Aspiration precautions [facility] Start: 12-01-2024 Cardiac monitoring [facility] Start: 12-01-[address] [facility] Start: 12-01-2024 Consultation [facility] Start: 12-01-[address] [facility] Start: 12-01-2024 Elevation of head of bed [facility] Start: 12-01-2024 Exercises [facility] Start: 12-01-[address] [facility] Start: 12-01-2024 Oxygen therapy [facility] Start: 12-01-2024 Patient referral to dietitian [facility] Start: 12-01-2024 Referral to occupational therapist [facility] Start: 12-01-2024 Referral to service [facility] Start: 12-01-[address] [facility] Start: 12-01-2024 Telemedicine consultation with patient [facility] Start: 12-01-2024 Tobacco use cessation education [facility] Start: 12-01-2024 End: 12-01-2024 [facility] Start: 12-01-2024 [facility] Start: 12-01-2024 [facility] Start: 12-01-2024 Electrocardiographic procedure [facility] Start: 12-01-2024 Continuous positive airway pressure ventilation treatment [facility] Start: 12-01-2024 US Heart [facility] Start: 12-01-2024 Complete blood count [facility] Start: 11-30-2024 End: 11-30-2024 [facility] Start: 11-30-2024 Following clinical pathway protocol [facility] Start: 11-30-2024 Ambulation without limitation [facility] Start: 11-30-2024 Assessment of risk of venous thromboembolism [facility] Start: 11-30-2024 Insertion of catheter into peripheral vein [facility] Start: 11-30-2024 Measuring intake and output [facility] Start: 11-30-2024 Providing care according to standard [facility] Start: 11-30-2024 Referral to service [facility] Start: 11-30-[address] [facility] Start: 11-30-2024 Complete blood count [facility] Start: 11-30-2024 Elevation of head of bed [facility] Start: 11-30-2024 Admission procedure [facility] Start: 11-30-2024 Cardiac monitoring [facility] Start: 11-30-2024 Cardiac rehabilitation - phase 1 [facility] Start: 11-30-2024 Cardiac rehabilitation - phase 2 [facility] Start: 11-30-2024 Dietary regime [facility] Start: 11-30-2024 Log roll [facility] Start: 11-30-2024 End: 11-30-[address] [facility] Start: 11-30-2024 Oxygen therapy [facility] Start: 11-30-2024 Patient discharge [facility] Start: 11-30-2024 Provision of activity privileges [facility] Start: 11-30-2024 Pulse taking [facility] Start: 11-30-2024 Hospital admission, emergency, from emergency room, medical nature [facility] Start: 11-30-2024 Electrocardiographic procedure [facility] Start: 11-30-2024 End: 11-30-2024 [facility] Start: 11-30-2024 Partial thromboplastin time, activated [facility] Start: 11-30-2024 Prothrombin time [facility] Start: 11-28-2024 [facility] Start: 11-28-2024 Patient discharge [facility] Start: 11-28-2024 Complete blood count [facility] Start: 11-27-2024 Following clinical pathway protocol [facility] Start: 11-27-2024 Elevation of head of bed [facility] Start: 11-27-2024 Dietary regime [facility] Start: 11-27-2024 Log roll [facility] Start: 11-27-2024 Provision of activity privileges [facility] Start: 11-27-2024 End: 11-27-2024 [facility] Start: 11-27-2024 Admission procedure [facility] Start: 11-27-2024 Cardiac monitoring [facility] Start: 11-27-2024 Cardiac rehabilitation - phase 1 [facility] Start: 11-27-2024 Cardiac rehabilitation - phase 2 [facility] Start: 11-27-[address] [facility] Start: 11-27-2024 Oxygen therapy [facility] Start: 11-27-2024 Pulse taking [facility] Start: 11-27-2024 Continuous positive airway pressure ventilation treatment [facility] Start: 11-27-2024 Inhalation therapy procedure [facility] Start: 11-26-2024 [facility] Start: 11-26-2024 [facility] Start: 11-22-2024 Evaluation of diagnostic study results [facility] Start: 10-25-2024 Evaluation of diagnostic study results [facility] Start: 07-25-2024 Walking distance 6 minutes [facility] Start: 07-17-2024 Measurement of respiratory function [facility] Start: 12-21-2022 Patient discharge [facility] Start: 10-05-2022 Measurement of respiratory function [facility] Start: 09-21-2022 Patient discharge [facility] Start: 09-20-[address] [facility] Start: 09-18-2022 Following clinical pathway protocol [facility] Start: 09-17-2022 Aspiration precautions [facility] Start: 09-17-2022 Assessment of risk of venous thromboembolism [facility] Start: 09-17-2022 Cardiac monitoring [facility] Start: 09-17-[address] [facility] Start: 09-17-[address] [facility] Start: 09-17-2022 Continuous positive airway pressure ventilation treatment [facility] Start: 09-17-[address] [facility] Start: 09-17-2022 Elevation of head of bed [facility] Start: 09-17-2022 Exercises [facility] Start: 09-17-2022 Fall prevention [facility] Start: 09-17-2022 Implementation of planned interventions [facility] Start: 09-17-2022 Inhalation therapy procedure [facility] Start: 09-17-2022 Insertion of catheter into peripheral vein [facility] Start: 09-17-2022 Introduction of urinary catheter [facility] Start: 09-17-2022 Measuring intake and output [facility] Start: 09-17-[address] [facility] Start: 09-17-2022 Oxygen therapy [facility] Start: 09-17-2022 End: 09-18-2022 Patient referral to dietitian [facility] Start: 09-17-2022 Providing care according to standard [facility] Start: 09-17-2022 Provision of activity privileges [facility] Start: 09-17-2022 Referral to occupational therapist [facility] Start: 09-17-2022 Referral to service [facility] Start: 09-17-[address] [facility] Start: 09-17-2022 Tobacco use cessation education [facility] Start: 09-17-2022 [facility] Start: 09-17-2022 Admission procedure [facility] Start: 09-01-2022 Patient discharge [facility] Start: 08-31-2022 Patient referral [facility] Work Phone: Start: 08-31-2022 Following clinical pathway protocol [facility] Start: 08-31-2022 Pulse taking [facility] Start: 08-31-2022 Cardiac monitoring [facility] Start: 08-31-2022 Cardiac rehabilitation - phase 1 [facility] Start: 08-31-2022 Cardiac rehabilitation - phase 2 [facility] Start: 08-31-[address] [facility] Start: 08-31-2022 Oxygen therapy [facility] Start: 08-31-2022 Patient discharge [facility] Start: 08-31-2022 Taking patient vital signs [facility] Start: 08-31-2022 Vascular disease risk assessment [facility] Start: 08-31-2022 Vital signs measurements [facility] Start: 08-31-2022 End: 08-31-2022 [facility] Start: 08-31-2022 Admission procedure [facility] Start: 11-16-2021 [facility] Work Phone: Start: 01-10-2021 End: 01-10-2021 Admission to same day surgery center 01/10/2021 Surgery Cardiology Eladio Ingram MD [address] [facility] [address] [place] [address] Left Heart Cath Possible PTCA/Stent [facility] [employer] Comment on above: Left Heart Cath Possible PTCA/Stent Start: 01-10-2021 Subsequent hospital visit by physician 01/10/2021 Hospital Encounter Eladio Ingram MD [address] [facility] [address] [place] [address] [facility] Procedural Care Unit Start: 01-01-2021 Influenza vaccination [facility] Start: 12-26-2020 End: 12-26-2020 Patient encounter procedure 12/26/2020 Office Visit Cardiology Marycarmen Rodriguez, [address] [place] [address] [place] [address] [phone] Eladio Ingram MD [address] [facility] [address] [place] [address] [phone] [facility] Office Start: 10-15-2020 End: 10-15-2020 Patient encounter procedure 10/15/2020 Appointment Cardiology Eladio Ingram MD [address] [facility] [address] [place] [address] [phone] [facility] Start: 10-09-2020 End: 10-09-2020 Patient encounter procedure 10/09/2020 Office Visit Cardiology Sagar Acuña, HEALTH INFORMATION MANAGEMENT DIRECTOR [address] [place] [address] [phone] [facility] Office Start: 11-05-2017 Prostate specific antigen measurement PSA Level [facility] Start: 06-01-2017 HEMOGLOBIN A1C HEMOGLOBIN A1C [facility] Work Phone: Start: 06-01-2017 Hemoglobin A1c measurement A1C [facility] Start: 06-01-2017 Hemoglobin A1c/Hemoglobin.total mass fraction (Bld) HEMOGLOBIN A1C [facility] Work Phone: Start: 01-01-2017 SEQUENTIAL INFLUENZA VACCINE (#1) SEQUENTIAL INFLUENZA VACCINE (#1) [facility] Work Phone: Start: 12-17-2016 Ambulatory 12/17/2016 Office Visit Cardiology Eladio Ingram MD [address] [facility] [address] [place] [address] [phone] [facility] Start: 2010 ABDOMINAL AORTIC ULTRASOUND ABDOMINAL AORTIC ULTRASOUND [facility] Work Phone: Start: 2010 Fall risk assessment Falls Risk Assessment [facility] Start: 2010 PNEUMOCOCCAL VACCINE AGE 65+ (1 of 2 - PCV13) PNEUMOCOCCAL VACCINE AGE 65+ (1 of 2 - PCV13) [facility] Work Phone: Start: 2005 Zoster vacc, sc ZOSTER VACCINE [facility] Work Phone: Start: 08-01-1995 Administration of herpes zoster vaccine Zoster Vaccines (1 of 2) [facility] Start: 08-01-1995 Screening for malignant neoplasm of colon [facility] Start: 08-01-1963 Hepatitis C screening Hepatitis C Screening [facility] Start: 1957 COVID-19 Vaccine (1) COVID-19 Vaccine (1) [facility] Start: 08-01-1955 3 comp foot exam completed FOOT EXAM [facility] Work Phone: Start: 08-01-1955 Albumin Test strip detection limit <= 20 mg/L mass conc (U) URINE MICROALBUMIN [facility] Work Phone: Start: 08-01-1955 Diabetic foot examination Foot Exam [facility] Start: 08-01-1955 Microalbumin measurement, urine, quantitative Urine Microalbumin [facility] Start: 08-01-1955 Ophthalmic examination and evaluation OPHTHALMOLOGY EXAM [facility] Start: 08-01-1955 FOOT EXAM FOOT EXAM [facility] Work Phone: Start: 08-01-1955 OPHTHALMOLOGY EXAM OPHTHALMOLOGY EXAM [facility] Work Phone: Start: 08-01-1955 URINE MICROALBUMIN URINE MICROALBUMIN [facility] Work Phone: Start: 08-01-1951 Pneumococcal Vaccine: Age 65+ (1 of 2 - PPSV23) Pneumococcal Vaccine: Age 65+ (1 of 2 - PPSV23) [facility] Start: 1948 History and physical examination, annual for health maintenance Wellness Visit [facility] Start: 1945 Colonoscopy COLONOSCOPY [facility] Work Phone: Start: 1945 Tetanus vaccination Tetanus: Every 10yrs [facility] Start: 1945 Colonoscopy COLONOSCOPY [facility] Work Phone: Start: 1945 End: 1945 HEPATITIS C SCREENING HEPATITIS C SCREENING [facility] Work Phone: Start: 1945 End: 1945 TETANUS EVERY 10 YR TETANUS EVERY 10 YR [facility] Work Phone: Alanine aminotransfe rase [Enzymatic activity/volume] in Serum or Plasma [facility] Alanine aminotransfe rase [Enzymatic activity/volume] in Serum or Plasma [facility] Albumin [Mass/volume ] in Serum or Plasma [facility] Albumin [Mass/volume ] in Serum or Plasma [facility] Alkaline phosphatase [Enzymatic activity/volume] in Serum or Plasma [facility] Alkaline phosphatase [Enzymatic activity/volume] in Serum or Plasma [facility] Anion gap in Serum or Plasma [facility] Anion gap in Serum or Plasma [facility] End: 12-26-2021 Basic metabolic 2000 panel - Serum or Plasma Basic metabolic panel Lab Routine 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, unspecified whether [place] or transplanted heart (HCC) Essential hypertension 1 Occurrences starting 12/26/2020 until 12/26/2021 [facility] Comment on above: 1 Occurrences starting 12/26/2020 until 12/26/2021 Basic metabolic 2000 panel - Serum or Plasma Basic metabolic panel Lab Routine 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, unspecified whether [place] or transplanted heart (HCC) Essential hypertension 12/26/2020 11:28 AM EDT [facility] Basic metabolic 2007 panel with ionized calcium - Serum or Plasma [facility] Basic metabolic 2007 panel with ionized calcium - Serum or Plasma [facility] Basic metabolic 2007 panel with ionized calcium - Serum or Plasma [facility] End: 12-17-2017 Basic metabolic panel [AGGREGATE] Basic metabolic panel Routine MATTHEW (obstructive sleep apnea) Coronary artery disease involving [place] coronary artery of [place] heart without angina pectoris 1 Occurrences starting 12/17/2016 until 12/17/2017 [facility] Work Phone: Bilirubin, total measurement [facility] Bilirubin, total measurement [facility] Blood chemistry [facility] BUN/Creatinine ratio [facility] BUN/Creatinine ratio [facility] Calcium [Mass/volume ] in Serum or Plasma [facility] Calcium [Mass/volume ] in Serum or Plasma [facility] Carbon dioxide, tota l [Moles/volume] in Central venous blood [facility] Carbon dioxide, tota l [Moles/volume] in Central venous blood [facility] Catheterization of [facility] Catheterization of [facility] Catheterization of [facility] CBC W Auto Different ial panel - Blood [facility] CBC W Auto Different ial panel - Blood [facility] End: 12-26-2021 Complete blood count with white cell differential, manual CBC and differential Lab Routine 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, unspecified whether [place] or transplanted heart (HCC) Essential hypertension 1 Occurrences starting 12/26/2020 until 12/26/2021 [facility] Work Phone: Comment on above: 1 Occurrences starting 12/26/2020 until 12/26/2021 Complete blood count with white cell differential, manual CBC and differential Lab Routine 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, unspecified whether [place] or transplanted heart (HCC) Essential hypertension 12/26/2020 11:28 AM EDT [facility] Creatinine [Mass/vol ume] in Serum or Plasma [facility] Creatinine [Mass/vol ume] in Serum or Plasma [facility] End: 01-10-2022 CT Angiogram Aorta Chest Abdomen Pelvis CT Angiogram Aorta Chest Abdomen Pelvis Imaging Routine 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 (HCC) 1 Occurrences starting 01/10/2021 until 01/10/2022 [facility] Work Phone: Comment on above: 1 Occurrences starting 01/10/2021 until 01/10/2022 End: 12-04-2021 Echocardiography Echocardiogram complete Echocardiography Routine Shortness of breath 1 Occurrences starting 10/04/2020 until 12/04/2021 [facility] Comment on above: 1 Occurrences starting 10/04/2020 until 12/04/2021 Erythrocyte mean cor puscular volume determination [facility] Erythrocyte mean cor puscular volume determination [facility] Erythrocyte mean cor puscular volume determination [facility] Glucose [Mass/volume ] in Serum or Plasma [facility] Glucose [Mass/volume ] in Serum or Plasma [facility] Hematocrit [Volume F raction] of Blood [facility] Hematocrit [Volume F raction] of Blood [facility] Hematocrit [Volume F raction] of Blood [facility] Hemoglobin [Mass/vol ume] in Blood [facility] Hemoglobin [Mass/vol ume] in Blood [facility] Hemoglobin [Mass/vol ume] in Blood [facility] INR in Blood by Coag ulation assay [facility] LEFT HEART CATH POSS IBLE PTCA/STENT LEFT HEART CATH POSSIBLE PTCA/STENT [facility] Leukocytes [#/volume ] in Blood [facility] Leukocytes [#/volume ] in Blood [facility] Leukocytes [#/volume ] in Blood [facility] End: 12-17-2017 Magnesium Magnesium Routine MATTHEW (obstructive sleep apnea) Coronary artery disease involving [place] coronary artery of [place] heart without angina pectoris 1 Occurrences starting 12/17/2016 until 12/17/2017 [facility] Work Phone: Mean corpuscular hem oglobin concentration determination [facility] Mean corpuscular hem oglobin concentration determination [facility] Mean corpuscular hem oglobin concentration determination [facility] Mean corpuscular hem oglobin determination [facility] Mean corpuscular hem oglobin determination [facility] Mean corpuscular hem oglobin determination [facility] Measurement of renal function [facility] Measurement of renal function [facility] Measurement of respi ratory function [facility] Work Phone: Natriuretic peptide. B prohormone N-Terminal [Mass/volume] in Serum or Plasma [facility] Natriuretic peptide. B prohormone N-Terminal [Mass/volume] in Serum or Plasma [facility] NM Heart Views W str ess and W radionuclide IV [facility] Patient Education [facility] Work Phone: Patient referral [facility] Work Phone: Platelets [#/volume] in Blood [facility] Platelets [#/volume] in Blood [facility] Platelets [#/volume] in Blood [facility] Potassium measurement [facility] Potassium measurement [facility] Red blood cell count [facility] Red blood cell count [facility] Red blood cell count [facility] Red cell distributio n width determination [facility] Red cell distributio n width determination [facility] Red cell distributio n width determination [facility] Serum chloride measurement [facility] Serum chloride measurement [facility] Sodium measurement [facility] Sodium measurement [facility] Total protein measurement [facility] Total protein measurement [facility] Troponin T.cardiac [Mass/volume] in Serum or Plasma by High sensitivity method [facility] Troponin T.cardiac [Mass/volume] in Serum or Plasma by High sensitivity method [facility] Troponin T.cardiac [Mass/volume] in Serum or Plasma by High sensitivity method [facility] Troponin T.cardiac [Mass/volume] in Serum or Plasma by High sensitivity method [facility] Troponin T.cardiac [Mass/volume] in Serum or Plasma by High sensitivity method [facility] Troponin T.cardiac [Mass/volume] in Serum or Plasma by High sensitivity method [facility] Urea nitrogen [Mass/ volume] in Serum or Plasma [facility] Urea nitrogen [Mass/ volume] in Serum or Plasma [facility] [place] PA and Lateral [facility] Immunizations Immunization Date Immunization Notes Care Provider Fa cility 11-26-2024 tetanus toxoid, redu terry diphtheria toxoid, and acellular pertussis vaccine, adsorbed Dr. Marycarmen Rodriguez DO Work Phone: [facility] 02-19-2023 influenza, injectabl e, quadrivalent, preservative free Dr. Marycarmen Rodriguez DO Work Phone: [facility] 01-27-2022 influenza, injectabl e, quadrivalent, preservative free Dr. Marycarmen Rodriguez DO Work Phone: [facility] 09-04-2021 Covid (Pfizer) Dr. Marycarmen hough DO Work Phone: [facility] 02-24-2021 Covid (Pfizer) Dr. Marycarmen hough DO Work Phone: [facility] 06-27-2020 Covid (Pfizer) Dr. Marycarmen hough DO Work Phone: [facility] 05-31-2020 Covid (Pfizer) Dr. Marycarmen hough DO Work Phone: [facility] 02-20-[address] Marycarmen Rodriguez Work Phone: [facility] 02-14-[address] Marycarmen Rodriguez Work Phone: [facility] 01-31-[address] Marycarmen Rodriguez Work Phone: [facility] 04-12-2017 influenza, high dose seasonal, preservative-free Dr. Marycarmen Rodriguez DO Work Phone: [facility] 11-29-2016 HEMOGLOBIN A1C [facility] Work Phone: 08-16-2014 pneumococcal polysaccharide vaccine, [address] Marycarmen Rodriguez DO Work Phone: [facility] 08-05-2005 hepatitis A vaccine, pediatric/adolescent dosage, [address] Marycarmen Rodriguez DO Work Phone: [facility] 01-14-2005 hepatitis A vaccine, pediatric/adolescent dosage, [address] Marycarmen Rodriguez DO Work Phone: [facility] 01-14-2005 TD(adult) unspecifie d formulation Dr. Marycarmen Rodriguez DO Work Phone: [facility] Payers Date Payer Category Payer Medicare [id number] 2025 Private Health Insurance [id number] 2024 Self-pay [id number] 2019 Unknown [id number] [id number] 2019 Unknown [id number] 2012 Unknown [id number] 2.1 6.840.1.518572.3.249.13 2010 Medicare [id number] 2.16 .840.1.163745.3.249.13 2010 Medicare [id number] 1.2.840.779834.1.13.385.2.7.3.311675.315 2010 Medicare [id number] 2010 Medicare [id number] 1945 Unknown [id number] 2.16. 840.1.279676.3.579.2.594 1945 Unknown [id number] 2.16. 840.1.611154.3.579.2.902 1945 Unknown [id number] 2.16. 840.1.757561.3.579.2.903 1945 Unknown [id number] 2. 840.1.247980.3.579.2.903 1945 Unknown [id number] 2.16 840.1.363266.3.579.2.903 1945 Unknown [id number] 2.16 840.1.972564.3.579.2.903 1945 Unknown [id number] 2.16. 840.1.833310.3.579.2.903 1945 Unknown [id number] 2.16 840.1.851257.3.579.2.903 1945 Unknown [id number] 2.16. 840.1.894664.3.579.2.903 1945 Unknown [id number] 2.16 840.1.379724.3.579.2.903 1945 Unknown [id number] 2.16. 840.1.677401.3.579.2.627 Unknown [id number] 2.16.8 40.1.091512.3.579.2.462 Unknown [id number] 2.16.8 40.1.745685.3.579.2.462 Unknown [id number] 2.16.8 40.1.360107.3.579.2.462 Unknown [id number] 2.16.8 40.1.099360.3.579.2.462 Unknown [id number] 2.16.8 40.1.600754.3.579.2.462 Unknown [id number] 2.16.8 40.1.023269.3.579.2.462 Unknown [id number] 2.16.8 40.1.340993.3.579.2.462 Unknown [id number] 2.16.8 40.1.216747.3.579.2.462 Unknown [id number] 2.16.8 40.1.697940.3.579.2.462 Unknown [id number] 2.16.8 40.1.150125.3.579.2.462 Unknown [id number] 2.16.8 40.1.679490.3.579.2.462 Unknown [id number] 2.16.8 40.1.773714.3.579.2.462 Unknown [id number] 2.16.8 40.1.082185.3.579.2.462 Unknown [id number] 2.16.8 40.1.313242.3.579.2.462 Unknown [id number] 2.16.8 40.1.679809.3.579.2.462 Unknown [id number] 2.16.8 40.1.339077.3.579.2.462 Unknown [id number] 2.16.8 40.1.231021.3.579.2.462 Unknown [id number] 2.16.8 40.1.343867.3.579.2.462 Unknown [id number] 2.16.8 40.1.685002.3.579.2.462 Unknown [id number] 2.16.8 40.1.719865.3.579.2.462 Unknown [id number] 2.16.8 40.1.297463.3.579.2.462 Unknown [id number] 2.16.8 40.1.432403.3.579.2.462 Unknown [id number] 2.16.8 40.1.231441.3.579.2.462 Unknown [id number] 2.16.8 40.1.145047.3.579.2.462 Unknown [id number] 2.16.8 40.1.129751.3.579.2.462 Unknown [id number] 2.16.8 40.1.700767.3.579.2.462 Unknown [id number] 2.16.8 40.1.199735.3.579.2.462 Unknown [id number] 2.16.8 40.1.693749.3.579.2.462 Unknown [id number] 2.16.8 40.1.821902.3.579.2.462 Unknown [id number] 2.16.8 40.1.278761.3.579.2.462 Unknown [id number] 2.16.8 40.1.663354.3.579.2.462 Unknown [id number] 2.16.8 40.1.107586.3.579.2.462 Unknown [id number] 2.16.8 40.1.024305.3.579.2.462 Unknown [id number] 2.16.8 40.1.649090.3.579.2.462 Unknown [id number] 2.16.8 40.1.147447.3.579.2.462 Unknown [id number] 2.16.8 40.1.365097.3.579.2.462 Unknown [id number] 2.16.8 40.1.645802.3.579.2.462 Unknown [id number] 2.16.8 40.1.081010.3.579.2.462 Unknown [id number] 2.16.8 40.1.110084.3.579.2.462 Unknown [id number] 2.16.8 40.1.978036.3.579.2.462 Unknown [id number] 2.16.8 40.1.706962.3.579.2.462 Unknown [id number] 2.16.8 40.1.405538.3.579.2.462 Unknown [id number] 2.16.8 40.1.162183.3.579.2.462 Unknown [id number] 2.16.8 40.1.603324.3.579.2.462 Unknown [id number] 2.16.8 40.1.022803.3.579.2.462 Unknown [id number] 2.16.8 40.1.183606.3.579.2.462 Unknown [id number] 2.16.8 40.1.727197.3.579.2.462 Unknown [id number] 2.16.8 40.1.676078.3.579.2.462 Unknown [id number] 2.16.8 40.1.223127.3.579.2.462 Unknown [id number] 2.16.8 40.1.667965.3.579.2.462 Unknown [id number] 2.16.8 40.1.445955.3.579.2.462 Unknown [id number] 2.16.8 40.1.614778.3.579.2.462 Unknown [id number] 2.16.8 40.1.792329.3.579.2.462 Unknown [id number] 2.16.8 40.1.910034.3.579.2.462 Unknown [id number] 2.16.8 40.1.893920.3.579.2.462 Unknown [id number] 2.16.8 40.1.216709.3.579.2.462 Unknown [id number] 2.16.8 40.1.356553.3.579.2.462 Unknown [id number] 2.16.8 40.1.188225.3.579.2.462 Unknown [id number] 2.16.8 40.1.593821.3.579.2.462 Unknown [id number] 2.16.8 40.1.004016.3.579.2.462 Unknown [id number] 2.16.8 40.1.984673.3.579.2.462 Unknown [id number] 2.16.8 40.1.857828.3.579.2.462 Unknown [id number] 2.16.8 40.1.074428.3.579.2.462 Unknown [id number] 2.16.8 40.1.147044.3.579.2.462 Unknown [id number] 2.16.8 40.1.268411.3.579.2.462 Unknown [id number] 2.16.8 40.1.063607.3.579.2.462 Unknown [id number] 2.16.8 40.1.345686.3.579.2.462 Unknown [id number] 2.16.8 40.1.037403.3.579.2.462 Unknown [id number] 2.16.8 40.1.205455.3.579.2.462 Unknown [id number] 2.16.8 40.1.987353.3.579.2.462 Unknown [id number] 2.16.8 40.1.033766.3.579.2.462 Unknown [id number] 2.16.8 40.1.081011.3.579.2.462 Unknown [id number] 2.16.8 40.1.380331.3.579.2.462 Unknown [id number] 2.16.8 40.1.407232.3.579.2.462 Unknown [id number] 2.16.8 40.1.820476.3.579.2.462 Unknown [id number] 2.16.8 40.1.408844.3.579.2.462 Unknown [id number] 2.16.8 40.1.732073.3.579.2.462 Unknown [id number] 2.16.8 40.1.956998.3.579.2.462 Unknown [id number] 2.16.8 40.1.710904.3.579.2.462 Unknown [id number] 2.16.8 40.1.881894.3.579.2.462 Unknown [id number] 2.16.8 40.1.593145.3.579.2.462 Unknown [id number] 2.16.8 40.1.324098.3.579.2.462 Unknown [id number] 2.16.8 40.1.190169.3.579.2.462 Unknown [id number] 2.16.8 40.1.507040.3.579.2.462 Unknown [id number] 2.16.8 40.1.662508.3.579.2.462 Unknown [id number] 2.16.8 40.1.615483.3.579.2.462 Unknown [id number] 2.16.8 40.1.007134.3.579.2.462 Unknown [id number] 2.16.8 40.1.297577.3.579.2.462 Unknown [id number] 2.16.8 40.1.026716.3.579.2.462 Unknown [id number] 2.16.8 40.1.171034.3.579.2.462 Unknown [id number] 2.16.8 40.1.217095.3.579.2.462 Unknown [id number] 2.16.8 40.1.810707.3.579.2.462 Unknown [id number] 2.16.8 40.1.815010.3.579.2.462 Unknown [id number] 2.16.8 40.1.577275.3.579.2.462 Unknown [id number] 2.16.8 40.1.116831.3.579.2.462 Unknown [id number] 2.16.8 40.1.412766.3.579.2.462 Social History Date Type Detail Facility Start: 12-17-2016 End: 01-03-2025 Tobacco smoking status NHIS Former smoker [facility] Start: 12-17-2016 End: 10-09-2020 Cigarettes smoked current (pack per day) - Reported [facility] Work Phone: Start: 1945 Sex Assigned At Not on file [facility] Work Phone: Start: 12-17-2016 End: 10-09-2020 Tobacco use and exposure Never used [facility] Start: 12-17-2016 End: 01-10-2021 Alcohol intake Current non-drinker of alcohol (finding) [facility] Start: 03-10-2016 Tobacco Comment quit 25+ yrs ago [facility] Exposure to SARS-CoV -2 (event) Not sure [facility] Start: 08-01-2021 End: 12-21-2022 Tobacco smoking status NHIS Unknown if ever smoked [facility] Start: 01-12-2020 None [facility] Start: 01-12-2020 Spouse/ Signif icant Other [facility] Start: 11-18-2020 Non-smoker [facility] Start: 1945 Sex Assigned At Male [facility] Start: 07-13-2024 End: 01-03-2025 Sex Male (finding) [facility] Sexual Orientation [facility] Medical Equipment Procedure Code Equipment Code Equipment Origin al Text Equipment Identifier Dates Colonoscopy FDA Start: 12-25-2024 Colonoscopy FDA Start: 12-25-2024 Stent 3.50 X 23 Judie Rosenbaum [facility] Rx - [id number] FDA Start: 01-04-2015 ()[id number] [id number] FDA Start: 08-31-2022 ([id number] [id number] FDA Start: 08-31-2022 ([id number] [id number] FDA Start: 11-27-2024 ([id number] [id number] FDA Start: 11-30-2024 ([id number] 0)[id number] FDA Start: 11-30-2024 Goals Date Patient Goal Desired Activity /State Functional Status Date Assessment Result Facility 12-26-2024 Functional status Ambulates [facility] Work Phone: 12-17-2024 Functional status Ambulates [facility] Work Phone: 12-08-2024 Functional status Bedrest [facility] Work Phone: 12-06-2024 Functional status Ambulates [facility] Work Phone: 12-05-2024 Functional status Ambulates [facility] Work Phone: 12-04-2024 Functional status Poor [facility] Work Phone: 12-02-2024 Functional status Bedrest [facility] Work Phone: 11-28-2024 Functional status Ambulates [facility] Work Phone: 11-27-2024 Functional status Dangle Feet [facility] Work Phone: 09-21-2022 Functional status Chair [facility] Work Phone: 09-20-2022 Functional status Assistive Ning lauro Rolling Walker [facility] Work Phone: 09-01-2022 Functional status Activity Ability Indepe ndent [facility] Work Phone: 08-31-2022 Functional status Ambulates [facility] Work Phone: Mental Status Date Assessment Result Facility 01-01-2025 Cognitive function Voice/Name [facility] Work Phone: 12-26-2024 Cognitive function Voice/Name [facility] Work Phone: 12-17-2024 Cognitive function Voice/Name [facility] Work Phone: 12-08-2024 Cognitive function Voice/Name [facility] Work Phone: 12-07-2024 Cognitive function Voice/Name [facility] Work Phone: 12-06-2024 Cognitive function Voice/Name [facility] Work Phone: 12-05-2024 Cognitive function Voice/Name [facility] Work Phone: 12-02-2024 Cognitive function Voice/Name [facility] Work Phone: 12-02-2024 Cognitive function Voice/Name [facility] Work Phone: 11-28-2024 Cognitive function Voice/Name [place] [facility] Work Phone: 11-27-2024 Cognitive function Voice/Name [facility] Work Phone: 09-21-2022 Cognitive function Voice/Name [facility] Work Phone: 09-01-2022 Cognitive function Appropriate;Cooperativ e [facility] Work Phone: 11-16-2021 Cognitive function Voice/Name [facility] Work Phone: 06-10-2021 Cognitive function Level Of Cons ciousness Awake;Alert;Appropriate [facility] Work Phone: Clinical Notes 06-25-2020 to 01-10-2025 [...] Document Reviewed: 04/20/2014 ExitCare Patient Information 2015 [employer]biogen[employer], [employer]. This information is not intended to replace advice given to you by your health care provider. Make sure you discuss any questions you have with your health care provider. Follow Up Care 01/03/2025 12:50:19 With:JEFFREY SPIVEY MD Address: [address] [facility] [place] [phone] When:Within 2 Week(s) With:[facility] Address: [address] [place] [address]- When: Unknown Comments:Cardiac rehabilitation is a vital part of your recovery and long-term heart health following your hospital stay. It is a medically supervised exercise and education program designed to improve your physical fitness, manage heart-related risk factors, and support emotional well-being. A cardiac rehab cafe team member will contact you soon to schedule your follow-up appointment. If you have any questions please call [phone]. [facility] 01-10-2025 Note Discharge Instructions Thank you for allowing [facility] to assist you with your healthcare needs. The following is important discharge information regarding your hospital visit. What to do next Follow Up Appointments Follow Up with JEFFREY SPIVEY MD When:In 2 weeks Where:[address] [facility] [place] [phone] Follow Up with [facility] Where:[address] [place] [address]- Additional Information: Cardiac rehabilitation is a vital part of your recovery and long-term heart health following your hospital stay. It is a medically supervised exercise and education program designed to improve your physical fitness, manage heart-related risk factors, and support emotional well-being. A cardiac rehab cafe team member will contact you soon to schedule your follow-up appointment. If you have any questions please call [phone]. The Following Activity and Diet Have Been [...] may report side effects to FDA at 2-237-DUV-2199. What other drugs will affect clopidogrel? Sometimes it is not safe to use certain medications at the same time. Some drugs can affect your blood levels of other drugs you take, which may increase side effects or make the medications less effective. Tell your doctor about all your other medicines, especially: a stomach acid technical training instructor such as omeprazole, Nexium, or Prilosec; an antidepressant such as citalopram, fluoxetine, sertraline, Cymbalta, Effexor, Lexapro, Pristiq, or Prozac; rifampin; a blood thinner--warfarin, Coumadin, Jantoven; or NSAIDs (nonsteroidal anti-inflammatory drugs)--aspirin, ibuprofen (Advil, Motrin), naproxen (Aleve), celecoxib, diclofenac, indomethacin, meloxicam, and others. This list is not complete. Other drugs may affect clopidogrel, including prescription and uifd-qhr-lcgosce medicines, vitamins, and herbal products. Not all [...] to ensure that the information provided by CallsFreeCalls. ('Multum') is accurate, up-to-date, and complete, but no guarantee is made to that effect. Drug information contained herein may be time sensitive. IQcard information has been compiled for use by healthcare practitioners and consumers in the [place] and therefore IQcard does not warrant that uses outside of the [place] are appropriate, unless specifically indicated otherwise. [employer] drug information does not endorse drugs, diagnose patients or recommend therapy. [employer] drug information is an informational resource designed [...] effective or appropriate for any given patient. IQcard does not assume any responsibility for any aspect of healthcare administered with the aid of information IQcard provides. The information contained herein is not intended to cover all possible uses, directions, precautions, warnings, drug interactions, allergic reactions, or adverse effects. If you have questions about the drugs you are taking, check with your doctor, nurse or pharmacist. Copyright 0270-2823 CallsFreeCalls. Version: 18.01. Revision Date: 2020. aspirin (oral) ( pir in) Aspi-Cor, Rebeca Plus, Ecotrin, Miniprin, Vazalore What is the most important information I should know about aspirin? Aspirin can cause Liane's syndrome, a serious and sometimes fatal condition in children. What is aspirin? Aspirin is a salicylate (ri-IXQ-uy-ate) that is used to treat pain, and [...] may report side effects to FDA at 5-705-DKO-5341. What other drugs will affect aspirin? Ask [...] drugs may affect aspirin, including prescription and dwqk-qlz-utcslwc medicines, vitamins, and herbal products. Not all [...] to ensure that the information provided by [employer]. ('Multum') is accurate, up-to-date, and complete, but no guarantee is made to that effect. Drug information contained herein may be time sensitive. IQcard information has been compiled for use by healthcare practitioners and consumers in the [place] and therefore IQcard does not warrant that uses outside of the [place] are appropriate, unless specifically indicated otherwise. [employer] drug information does not endorse drugs, diagnose patients or recommend therapy. [employer] drug information is an informational resource designed [...] effective or appropriate for any given patient. IQcard does not assume any responsibility for any aspect of healthcare administered with the aid of information IQcard provides. The information contained herein is not intended to cover all possible uses, directions, precautions, warnings, drug interactions, allergic reactions, or adverse effects. If you have questions about the drugs you are taking, check with your doctor, nurse or pharmacist. Copyright 4949-4518 CallsFreeCalls. Version: 18.. Revision Date: 04/19/2024. Education Materials HEART CATHETERIZATION/PCI [...] Document Reviewed: 04/20/2014 ExitCare Patient Information 2015 Shhmooze [facility]. This information is not intended to replace advice given to you by your health care provider. Make sure you discuss any questions you have with your health care provider. Additional Information VACCINATE! IT SAVES LIVES! Members of the community who have not yet received the COVID-19 vaccine and would like to receive it can visit one of [facility] vaccine clinics. There are many vaccine clinic locations within the [facility]. For locations and available times, please visit https://gettheshot.coronavirus. [place].gov/. It is important to note that some COVID mobile vaccine clinics are held outdoors and may be canceled in rainy or stormy conditions. To learn more about pediatric vaccinations (ages 5-11), we invite you to visit the [facility] webpage. https://www.[facility].org/ pages/9665-Bjech-Ukhikbbhmqb-Fr apysrdky-Rbztq-Ggbotskzq.html To learn more about the COVID-19 vaccine, we invite you to visit the CDC website for a list of frequently asked questions.https://www.cdc.gov/c oronavirus/2019-ncov/vaccines/f aq.html [employer] Patient Portal Access Instructions: Stay connected with your healthcare team and access your personal medical information anytime with the [employer] Patient Portal. Please follow the directions below to create your [employer] account: 1.Access the email account you provided upon registration to the hospital/physician office.2.Look for an invitation email from [facility].3.Open the email and access the invitation link: Accept Invitation to [employer].4.Fill in the required kim to create your account. To access your account, visit [email or web address]-[email or web address]. Click the blue button labeled Access Patient [...] you will allow to register on the [facility] Patient Portal for access to your information. You can also access the [facility] Patient Portal on the [facility] tuan. Simply click on Patient Portal and then log into your account. If you would like to receive a full copy of your medical records, please contact the [facility] Medical Records Department by calling [phone], Wednesday through Wednesday between 8 a.m. and [...] Call your local pharmacy or go to http://[employer]KARALIT/8N8Da9e to find one close to you.3.Make use of household items: Use cat litter or old coffee grounds to dispose medications if other options are not available. Mix your drugs with these household products, seal them in an airtight container and throw it into the garbage. Call [facility]: [phone] to be sure your drugs can be [...] aware that I should contact my doctor. Patient/Seamer Elastic Band Signature: Date/Time: Relationship to Patient: Witness Name/Signature: Date/Time: [facility] 01-10-2025 Discharge summary Date of Service 01/10/2025 Discharge Diagnosis STEMI status post PCI to [facility]CA Hospital Course Patient is a 79-year-old male with history of CAD with PCI on 11/27/2024 with in-stent thrombosis requiring repeat PCI, ischemic cardiomyopathy, type 2 diabetes mellitus, hyperlipidemia and hypothyroidism presented from [place] as a transfer for concerns with complete [...] EGD and colonoscopy for similar reasons at [facility], requested records, GI was consulted who recommended no intervention at this time and cleared for discharge. He was noted to have AUDRA and received IV iron replacement. Discharged to SNF. Allergies doxycycline stomach upset Procedures [facility] Consults Consult to Physician - Ordered -- [...] JEFFREY SPIVEY MD When:In 2 weeks Where:[address] [facility] [place] [address]- [phone] Follow [facility] Where:[address] [place] [address]- Additional Information: Cardiac rehabilitation is a vital part of your recovery and long-term heart health following your hospital stay. It is a medically supervised exercise and education program designed to improve your physical fitness, manage heart-related risk factors, and support emotional well-being. A cardiac rehab cafe team member will contact you soon to schedule your follow-up appointment. If you have any questions please call [phone]. Follow Up Appointments No qualifying data available. [...] by ARMANDO BAÑUELOS MD on 01/10/2025 01:05 [facility] 01-10-2025 Discharge summary Date of Service 01/10/2025 Discharge Diagnosis STEMI status post PCI to [facility] Hospital Course Patient is a 79-year-old male with history of CAD with PCI on 11/27/2024 with in-stent thrombosis requiring repeat PCI, ischemic cardiomyopathy, type 2 diabetes mellitus, hyperlipidemia and hypothyroidism presented from [place] as a transfer for concerns with complete [...] EGD and colonoscopy for similar reasons at [facility], requested records, GI was consulted who recommended no intervention at this time and cleared for discharge. He was noted to have AUDRA and received IV iron replacement. Discharged to SNF. Allergies doxycycline stomach upset Procedures [facility] Consults Consult to Physician - Ordered -- [...] 2 weeks Where:[address] [facility] [place] [address] [phone] [facility] Where:[address] [place] [address]- Additional Information: Cardiac rehabilitation is a vital part of your recovery and long-term heart health following your hospital stay. It is a medically supervised exercise and education program designed to improve your physical fitness, manage heart-related risk factors, and support emotional well-being. A cardiac rehab cafe team member will contact you soon to schedule your follow-up appointment. If you have any questions please call [phone]. Follow Up Appointments No qualifying data available. 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 up for [...] Painless low-volume rectal bleeding was evaluated at [facility] with a colonoscopy on December 25 I [...] COREEN NEWBERRY MD on 01/10/2025 10:03 AM [facility] 01-09-2025 Cardiology Progre ss note Subjective [...] consulted GI, requested EGD colonoscopy reports from [facility] prior - He is a former smoker wheezing on exam, could be having underlying undiagnosed COPD, started on BiPAP and DuoNebs - Iron panel consistent with iron deficiency anemia, started on IV iron replacement - D Dimer not elevated, venous duplex ultrasounds negative for DVT - Patient presented from [facility] in [place], pending GI recommendations, he can be discharged to the same facility per case management Digitally Signed by ARMANDO BAÑUELOS MD on 01/09/2025 01:54 PM [facility] 01-09-2025 Cardiology Progre ss note Subjective [...] consulted GI, requested EGD colonoscopy reports from [facility] prior - He is a former smoker wheezing on exam, could be having underlying undiagnosed COPD, started on BiPAP and DuoNebs - Iron panel consistent with iron deficiency anemia, started on IV iron replacement - D Dimer not elevated, venous duplex ultrasounds negative for DVT - Patient presented from SNF in [place], pending GI recommendations, he can be discharged to the same facility per case management Digitally Signed by ARMANDO BAÑUELOS MD on 01/09/2025 01:54 PM [facility] 01-09-2025 Note Exam Date Time Procedure Performing Provider Status 01/09/25 12:16 PM Echocardiogram, Adult - CV LOS BRUNO MD; Auth (Verified) [facility] [id number] Cardiology Progress note Subjective Patient seen and examined bedside this morning. Denies any new concerns. Stated he feels much better in regards to his breathing. Reviewed telemetry, continues to have prolonged NV with Mobitz type Iblock intermittent A. tach [...] hematochezia overnight - Telemetry reviewed showing prolonged NV with Mobitz type I and with intermittent A. tach episodes, spoke to EP fellow advised to start on low-dose beta-jeffrey, and started on medical succinate 12.5 mg daily, will uptitrate as he tolerates. - He has reduced EF, on GDMT with Toprol, losartan, Jardiance and spironolactone - Repeat limited echo order to evaluate for EF - Awaiting records from [facility] for EGD and colonoscopy - He is a former smoker wheezing on exam, could be having underlying undiagnosed COPD, started on BiPAP and DuoNebs - Iron panel consistent with iron deficiency anemia, started on IV iron replacement - D Dimer not elevated, venous duplex ultrasounds negative for DVT Digitally Signed by ARMANDO BAÑUELOS MD on 01/08/2025 02:21 PM [facility] [id number] Cardiology Progress note Subjective Patient seen and examined bedside this morning. Denies any new concerns. Stated he feels much better in regards to his breathing. Reviewed telemetry, continues to have prolonged NV with Mobitz type Iblock intermittent A. tach [...] hematochezia overnight - Telemetry reviewed showing prolonged NV with Mobitz type I and with intermittent A. tach episodes, spoke to EP fellow advised to start on low-dose beta-jeffrey, and started on medical succinate 12.5 mg daily, will uptitrate as he tolerates. - He has reduced EF, on GDMT with Toprol, losartan, Jardiance and spironolactone - Repeat limited echo order to evaluate for EF - Awaiting records from [facility] for EGD and colonoscopy - He is a former smoker wheezing on exam, could be having underlying undiagnosed COPD, started on BiPAP and DuoNebs - Iron panel consistent with iron deficiency anemia, started on IV iron replacement - D Dimer not elevated, venous duplex ultrasounds negative for DVT Digitally Signed by ARMANDO BAÑUELOS MD on 01/08/2025 02:21 PM [facility] [id number] Cardiology Progress note Subjective Patient seen and examined bedside this morning. Denies any new concerns. To be reviewed showing prolonged NV interval with Mobitz type I block. No [...] has been stable - Awaiting records from [facility] for EGD and colonoscopy - He is [...] ARMANDO BAÑUELOS MD on 01/07/2025 12:28 PM [facility] [id number] Note* Exam Date Time Procedure Performing Provider Status 01/07/25 4:15 PM VL Venous US/Doppler Both Legs(for DVT) MICHAEL SIMENTAL MD; Auth (Verified) [facility] [id number] Cardiology Progress note Subjective Patient seen and examined bedside this morning. Denies any new concerns. To be reviewed showing prolonged NV interval with Mobitz type I block. No [...] has been stable - Awaiting records from [facility] for EGD and colonoscopy - He is [...] ARMANDO BAÑUELOS MD on 01/07/2025 12:28 PM [facility] [id number] Respiratory therapy Hospital Progress note Respiratory Therapy Evaluation Entered On: 01/06/2025 19:56 EDT Performed On: 01/06/2025 19:55 EDT by Mleissa Olmstead Respiratory Therapy Evaluation Pulmonary Status : [...] by Melissa Olmstead on 01/06/2025 07:55 PM [facility] [id number] Note* Exam Date Time Procedure Performing Provider Status 01/06/25 11:41 AM Electrocardiogram - EKG - CV MIN MADRID MD; Auth (Verified) ECG Final Report SINUS RHYTHM SECOND DEG AVB, MOBITZ I ([place]) LOW VOLTAGE, EXTREMITY LEADS REPOL ABNRM SUGGESTS ISCHEMIA, DIFFUSE LEADS ST ELEVATION, CONSIDER INFERIOR INJURY Probable posterior wall involvement PROLONGED QT INTERVAL Electronic Signature: MIN MADRID MD 01/07/2025 17:41:04 [facility] [id number] Note* Exam Date Time Procedure Performing Provider Status 01/06/25 11:20 AM XR Chest 1 View JIMMY FREGOSO MD; Sophy gao (Verified) [id number] ORIGINAL EXAMINATION: ONE XRAY VIEW OF THE [...] 01/06/2025 11:26:21 AM Ordering Provider: ARMANDO BAÑUELOS [facility] HospitalVbphmpud74-97-1805 History and physical note Date of Service 01/03/2025 Chief Complaint Chest pain History of Present Illness 79-year-old male past medical history of CAD with multiple PCI, hypertension, hyperlipidemia, diabetes, hypothyroidism, heart failure who was transferred from [facility] for complete heart block requiring EP evaluation. [...] seen on Holter monitor and presented to [facility] subsequently. Patient denies any dyspnea on exertion, orthopnea, PND, lower extremity edema, or palpitations. Patient is in sinus rhythm with occasional ectopic atrial arrhythmia. On admission troponin 7K EKG showing mild ST elevation in lead II, [address] depression in leads V1 to V4 may be chronic from prior [place]. Review of Systems Same as HPI Physical [...] hypothyroidism, heart failure who was transferred from [facility] for complete heart block requiring EP evaluation. [...] ISREAL JACKSON MD on 01/04/2025 09:30 AM [facility] HospitalHkmuzouk90-67-6320 Note* Exam Date Time Procedure Performing Provider Status 01/06/25 10:05 AM Electrocardiogram - EKG - CV MIN MADRID MD; Auth (Verified) ECG Final Report AV Dissociation CONSIDER CHB NONSPECIFIC INTRAVENTRICULAR CONDUCTION DELAY INFERIOR INFARCT, ACUTE (LCX) Electronic Signature: MIN MADRID MD 01/07/2025 17:45:03 [facility] [id number] Note* Exam Date Time Procedure Performing Provider Status 01/05/25 8:24 PM Echocardiogram, Adult - CV GUSTABO CORONADO MD; Auth (Verified) [facility] [id number] Note* Exam Date Time Procedure Performing Provider Status 01/05/25 2:44 PM Electrocardiogram - EKG - CV ABRAHAMP BRITTON PINZON MD; Auth (Verified) ECG Final Report SINUS RHYTHM PROLONGED NV INTERVAL NONSPECIFIC INTRAVENTRICULAR CONDUCTION DELAY LOW VOLTAGE, EXTREMITY LEADS REPOL ABNRM SUGGESTS ISCHEMIA, DIFFUSE LEADS ACUTE INFERIOR INFACRT Electronic Signature: BRITTON LEDEZMA MD 01/06/2025 18:58:38 [facility] [id number] Note Date of Service 01/05/2025 Subjective Patient [...] KEREN WARNER MD on 01/05/2025 11:25 AM [facility] [id number] Note* Exam Date Time Procedure Performing Provider Status 01/05/25 2:02 PM XR Chest 1 View SALLY THRASHER MD; Aut h (Verified) [id number] ORIGINAL EXAMINATION: ONE XRAY VIEW OF THE [...] 01/05/2025 2:09:48 PM Ordering Provider: COREY PETERSON [facility] [id number] Note Date of Service 01/05/2025 Subjective Patient [...] KEREN WARNER MD on 01/05/2025 11:25 AM [facility] [id number] Note* Exam Date Time Procedure Performing Provider Status 01/05/25 10:34 AM Electrocardiogram - EKG - CV BRITTON MONAE MD; Auth (Verified) ECG Final Report SINUS RHYTHM PROLONGED NV INTERVAL NONSPECIFIC INTRAVENTRICULAR CONDUCTION DELAY INFERIOR INFARCT, ACUTE (RCA) PROBABLE RV INVOLVEMENT, SUGGEST RECORDING RIGHT PRECORDIAL LEADS Electronic Signature: BRITTON LEDEZMA MD 01/06/2025 18:58:15 [facility] [id number] Note* Exam Date Time Procedure Performing Provider Status 01/05/25 5:43 AM Electrocardiogram - EKG - CV TABITHA SANDOVAL MD; Auth (Verified) ECG Final Report SINUS RHYTHM PROLONGED NV INTERVAL NONSPECIFIC INTRAVENTRICULAR CONDUCTION DELAY REPOL ABNRM SUGGESTS ISCHEMIA, ANTEROLATERAL ST ELEVATION, CONSIDER INFERIOR INJURY Electronic Signature: PENELOPE SANDOVAL MD 01/05/2025 15:34:11 [facility] HospitalDtsbcqcy49-69-5899 Cardiology Consult note Date of Service 01/04/2025 Reason for Consultation Complete heart block Referring Physician General Cardiology History of Present Illness 79-year-old male with past medical history of CAD with multiple PCI, hypertension, hyperlipidemia, diabetes, hypothyroidism, heart failure who was transferred from [facility] for complete heartblock requiring EP evaluation. History [...] KEREN WARNER MD on 01/04/2025 11:15 AM [facility] [id number] Note* Exam Date Time Procedure Performing Provider Status 01/04/25 1:51 PM Electrocardiogram - EKG - CV TABITHA SANDOVAL MD; Auth (Verified) ECG Final Report SINUS BRADYCARDIA PROLONGED NV INTERVAL LOW VOLTAGE, EXTREMITY LEADS PROBABLE POSTERIOR INFARCT, RECENT ST ELEVATION, CONSIDER INFERIOR INJURY LATERAL LEADS ARE ALSO INVOLVED Electronic Signature: PENELOPE SANDOVAL MD 01/05/2025 15:34:42 [facility] [id number] Pastoral care Progress note Pastoral Care Note [...] much recently), desire to get home to [place]. Pastoral Care Visit Length : 10 minute(s) Seymour Garcia - 01/04/2025 13:15 EDT Digitally Signed by Seymour Garcia on 01/04/2025 01:15 PM [facility] [id number] Note* Exam Date Time Procedure Performing Provider Status 01/04/25 12:27 PM Cardiac Catheterization -CV JAN MAYA MD; Auth (Verified) [facility] HospitalHsoekgnh45-35-2667 Cardiology Consult note Date of Service 01/04/2025 Reason for Consultation Complete heart block Referring Physician General Cardiology History of Present Illness 79-year-old male with past medical history of CAD with multiple PCI, hypertension, hyperlipidemia, diabetes, hypothyroidism, heart failure who was transferred from [facility] for complete heartblock requiring EP evaluation. History [...] KEREN WARNER MD on 01/04/2025 11:15 AM [id number] Note* Exam Date Time Procedure Performing Provider Status 01/03/25 10:07 PM XR Chest 1 View STEPHY LACEY MD; Aut h (Verified) [id number] ORIGINAL EXAMINATION: ONE XRAY VIEW OF THE [...] Date: 01/04/2025 5:39:33 AM Ordering Provider: EVA JERNIGAN [id number] History and physical note Date of Service 01/03/2025 Chief Complaint Chest pain History of Present Illness 79-year-old male past medical history of CAD with multiple PCI, hypertension, hyperlipidemia, diabetes, hypothyroidism, heart failure who was transferred from [facility] for complete heart block requiring EP evaluation. [...] seen on Holter monitor and presented to [facility] subsequently. Patient denies any dyspnea on exertion, orthopnea, PND, lower extremity edema, or palpitations. Patient is in sinus rhythm with occasional ectopic atrial arrhythmia. On admission troponin 7K EKG showing mild ST elevation in lead II, [address] depression in leads V1 to V4 may be chronic from prior WI. Review of Systems Same as HPI Physical [...] hypothyroidism, heart failure who was transferred from [facility] for complete heart block requiring EP evaluation. [...] ISREAL JACKSON MD on 01/04/2025 09:30 AM [id number] Evaluation + Plan noteExtracted from: Title:History and Physical Author:ISREAL JACKSON MD Date:01/03/25 79-year-old male past medica l history of CAD with multiple PCI, hypertension, hyperlipidemia, diabetes, hypothyroidism, heart failure who was transferred from [facility] for complete heart block requiring EP evaluation. [...] otherwise stated. CATH EP EVAL TTE A3 [facility] 09-01-2025 Radiology Diagnostic study [facility]08-26-2025 [facility]08-17-2025 Note [facility]08-17-2025 Hospital Discharge instructionsAdditional Instructions Date of Discharge: 12/17/24[facility] Work Phone: 1(239) 599-511208-16-2025 Progress note Author Marycarmen Marlow [facility] Note Date/Time December 17, 2024 1: 40pm [facility] Medical Records Department [address] [place] [address] Progress Note - Hospitalist 12/16/24 1843 MR#: [id number] Acct: [id number] Name: GERRY RICO Rep #:[id number] : 1945 79 From: Marycarmen Marlow DO PCP: Dr. Marycarmen Rodriguez, DO Status:ADM IN Location: [place] [address]- Reason for Visit Chief Complaint: Chest pain Subjective Subjective Patient was seen and examined today, he had nausea and vomiting today and I elected to have him remain in the hospital for now and reevaluate him tomorrow for possible discharge to his intermediate. 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 Recommendation Dietitian Will [...] 75.7 H, Lymph % (Auto) 10.7 L, Napa % (Auto) 12.1 H, Eos % (Auto) [...] multiple medical problems-patient will return to his [facility]p facility when medically stable Total clinical time spent by myself addressing the patient's medical issues, reviewing all of his data, and collaborating patient's care team: 35 minutes Charges/Coding Visit Charges Inpatient E&M: 05217 Subs Hosp L2 12/17/24 1340 <Electronically signed by Marycarmen Marlow DO> Cosigner Signature (if applicable): CC: ~ Signed [facility] Work Phone: 1(785) 657-212408-16-2025 Progress note Author Lance Rodriguez [facility] Note Date/Time December 16, 2024 12 :02pm [facility] Medical Records Department [address] [place] [address] Progress Note 12/16/24 1154 MR#: [id number] Acct: [id number] Name: GERRY RICO Rep #:[id number] : 1945 79 From: Lance Rodriguez MD PCP: Dr. Marycarmen Rodriguez, Status:ADM IN Location: [place] [address] Progress Note He states that his breathing [...] that may raise the possibility of post WI pericarditis and may explain some of his [...] Cosigner Signature (if applicable): CC: ~ Signed [facility] Work Phone: 1(648) 460-680408-15-2025 History and physical note Author Ramonita Herron [facility] Note Date/Time December 15, 2024 3: 23pm [facility] Medical Records Department [address] [place] [address] H&P Exam - Hospitalist 12/15/24 1435 MR#: [id number] Acct: [id number] Name: GERRY RICO Rep #:[id number] : 1945 79 From: Ramonita Herron MD PCP: Dr. Marycarmen Rodriguez, DO Status:ADM IN Location: [place] [address] HPI - General General Date of Admission: 12/15/24 Date of Service: 12/15/24 Chief Complaint: Chest pain HPI Narrative GERRY RICO, is a 79-year-old male history of CKD, heart failure, coronary artery disease, COPD, recent STEMI after an in-stent thrombosis who presented [facility] ED 12/15/2024 for active chest pain. Reportedly [...] glc 266. Trop 1137 and pro BNP 1. Troponins elevated, patient with ongoing chest pain [...] legs are actually less swollen than usual. [facility] Medical History Recent ST elevation myocardial infarction (STEMI) Chest pain History of acute inferior wall WI Acute ST elevation myocardial infarction (STEMI) of [...] attack) Obstructive sleep apnea Atherosclerotic heart disease [place] coronary artery w/angina pectoris Type 2 diabetes [...] History household members: spouse and none housing: intermediate Smoking Status: Former smoker quit date: 05/03/98 [...] 79.3 H, Lymph % (Auto) 9.7 L, Napa % (Auto) 9.9, Eos % (Auto) 0.1, Baso % (Auto) 0.2, Absolute Neuts (auto) 11.7 H, Absolute Lymphs (auto) 1.43, Nucleated RBC % 0, PT 16.8 H, INR 1.3, SYZO396.8 H*, Sodium 129 L, Potassium 4.5, Chloride [...] No acute abnormality is seen. Reading Location: [place] [address] Assessment & Plan Assessment/Plan (1) Chest pain: PLAN: Plan #Recurrent chest pain and elevated trop - Patient with history of coronary artery disease with recent stent and subsequent in-stent thrombosis for which she was taken back to the [facility] - He was subsequently discharged but readmitted again as a STEMI alert however heart cath at that time showed no acute process -Trop initially 1137, though this is down from 12/07 when his troponin was 7100, will trend - Cardiology on consult - [facility] [employer] [facility] examined patient's EKG, looks similar to previous send not taken emergently to [facility] - There is concern that he could have Ric syndrome as he has a small pericardial effusion there is theoretically the risk of post WI pericarditis, cardiology to initiate colchicine -NSAIDs to [...] 78 Minutes Charges/Coding Visit Charges Inpatient E&M: 00232 Init Hosp L3 12/15/24 1523 <Electronically signed by Ramonita Herron MD> Cosigner Signature (if applicable): CC: Dr. Marycarmen Rodriguez DO; Dr. Ramonita Herron MD~ Signed [facility] Work Phone: 1(360) 747-722508-15-2025 Consult note Author Sunil Faye [facility] Note Date/Time December 15, 2024 2: 19pm [facility] Medical Records Department [address] [place] [address] Consultation - Cardiology 12/15/24 1337 MR#: [id number] Acct: [id number] Name: GERRY RICO Rep #:[id number] : [...] that may raise the possibility of post WI pericarditis and may explain some of his [...] diabetes mellitus without complications: QUALIFIERS: Diabetes mellitus oil heaterman insulin use: without oil heaterman use Qualified Code(s): E11.9 - Type 2 [...] diabetes mellitus, and remote history of TIA [facility] Medical History Recent ST elevation myocardial infarction (STEMI) Chest pain History of acute inferior wall WI Acute ST elevation myocardial infarction (STEMI) of [...] attack) Obstructive sleep apnea Atherosclerotic heart disease [place] coronary artery w/angina pectoris Type 2 diabetes [...] History household members: spouse and none housing: intermediate Smoking Status: Former smoker quit date: 05/03/98 [...] 79.3 H, Lymph % (Auto) 9.7 L, Napa % (Auto) 9.9, Eos % (Auto) 0.1, [...] 79.3 H, Lymph % (Auto) 9.7 L, Napa % (Auto) 9.9, Eos % (Auto) 0.1, [...] No acute abnormality is seen. Reading Location: [facility] Risk Score for UA/STEMI Assesmment (YES = 1) Risk Stratification Applicable: No 12/15/24 1419 <Electronically signed by Sunil Faye MD> Cosigner Signature (if applicable): CC: Dr. Marycarmen Rodriguez, ~ Signed [facility] Work Phone: 1(356) 237-750108-15-2025 Discharge summary Author Payaladiel Weldon [facility] Note Date/Time December 15, 2024 1: 39pm [facility] Medical Records Department [address] [place] [address] Emergency Department Summary 12/15/24 MR#: [id number] Acct: [id number] Name: GERRY RICO Rep #:[id number] : [...] moderately. Denies any leg edema, fevers, cough. [facility] Medical History Recent ST elevation myocardial infarction (STEMI) Chest pain History of acute inferior wall WI Acute ST elevation myocardial infarction (STEMI) of [...] attack) Obstructive sleep apnea Atherosclerotic heart disease [place] coronary artery w/angina pectoris Type 2 diabetes [...] History household members: spouse and none housing: intermediate Smoking Status: Former smoker quit date: 05/03/98 [...] room air. EKG showing ventricular rate 98, NV 186, QTc 357. Left axis deviation. Compared [...] 79.3 H Lymph % (Auto) 9.7 L Napa % (Auto) 9.9 Eos % (Auto) 0.1 [...] abnormality is seen. Reading Location: [facility] Chest x-ray independently interpreted myself showing cardiomegaly. Largely unchanged from previous compared on 12/07/2024 EKG Initial EKG: Attestation: I personally reviewed and interpreted this EKG as follows: Interpretation: Sinus Rhythm Comments: EKG independently interpreted by myself showing evidence of normal sinus rhythm. Ventricular rate 98, NV 186, QTc 357. Left axis deviation. Compared to previous EKG on 12/07/2024 ST elevation in lead III largely unchanged. Concerned that there may be slightly more elevation in lead II and V6 compared to 12/07 concerning for new ischemia. STEMI alert activated. Prior EKG tracings: available for review (12/07/24) Management Discussion w/another healthcare provider: Hospitalist and Loss Prevention Supervisor Discharge Plan Dx/Rx/DC Orders Clinical Impression: Chest pain Disposition Disposition: Acute Care Hospital [facility] What to do if you have Problems For any increased pain, shortness of breath, bleeding, nausea or vomiting, chestpain, or any unexpected problems, contact your Primary Care Provider. Call [facility] ([phone]) or report to the closest Emergency Room. Call 911 if necessary. 12/15/24 1339 <Electronically signed by Payal Weldon DO> Susanigner Signature (if applicable): CC: Dr. Marycarmen Rodriguez DO ~ Signed [facility] Work Phone: 1(777) 281-812808-15-2025 Radiology Diagnostic study [facility]08-08-2025 Discharge summary Author Alex Sanon [facility] Note Date/Time December 08, 2024 12: 26pm [facility] Medical Records Department [address] [place] [address] Discharge Summary 12/08/24 1222 MR#: [id number] Acct: [id number] Name: GERRY RICO Rep #:[id number] : 1945 79 From: Alex Sanon MD PCP: Dr. Marycarmen Rodriguez, DO Status:ADM EDMUND Location: [place] [address] Providers Date of Admission: 12/07/24 Primary Care Physician: Dr. Marycarmen Rodriguez DO Reason For Visit: SHORTNESS OF BREATH. 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 [...] his ECF 2. Recent acute inferior wall WI ? This was complicated by PLV dissection [...] ? Patient was recently discharged to a usp facility plan is for patient to be [...] 74.1 H, Lymph % (Auto) 11.4 L, Napa % (Auto) 12.1 H, Eos % (Auto) [...] probability scan for pulmonary embolism. Reading Location: [facility]/ Instructions Discharge Activity: Return to Normal [...] Uncertain Cause Additional Instructions / Restrictions: The seamer elastic band wanted to make sure you are taking [...] in before D/C Order can be placed): Long Term Facility Charges/Coding Visit Charges Inpatient E&M: 35448 Disch Hosp >30min 12/08/24 1226 <Electronically signed by Alex Sanon MD> Cosigner Signature (if applicable): CC: Dr. Alex Sanon MD; Dr. Marycarmen Rodriguez DO~ Signed [facility] Work Phone: 1(841) 174-297308-08-2025 [facility]08-08-2025 Nuclear medicine Diagnostic study [facility]08-08-2025 Progress note Author Alex Sanon [facility] Note Date/Time December 08, 2024 9:2 1am [facility] Medical Records Department [address] [place] [address] Progress Note - Hospitalist 12/08/24 0734 MR#: [id number] Acct: [id number] Name: GERRY RICO Rep #:[id number] : 1945 79 From: Alex Sanon MD PCP: Dr. Marycarmen Marly, DO Status:ADM EDMUND Location: [place] [address] Subjective Subjective Patient is a 79-year-old gentleman with recent history of acute inferior STEMI which was complicated by distal PLV dissection who was discharged to a usp facility brought back with shortness of breath. [...] 79.0 H, Lymph % (Auto) 7.9 L, [place] % (Auto) 11.5 H, Eos % (Auto) [...] IMPRESSION: No acute cardiopulmonary process Reading Location: [facility] Physical Exam Narrative GENERAL: cooperative HEENT: [...] PLV dissection who was discharged to a usp facility brought back with shortness of breath. Patient was found to have elevated D-dimer admitted to monitored bed VQ scan ordered for subsequent evaluation 1. Exertional dyspnea ? Patient was found to have elevated D-dimer admitted to monitored bed VQ scan ordered for subsequent evaluation 2. Recent acute inferior wall WI ? This was complicated by PLV dissection [...] ? Patient was recently discharged to a usp facility plan is for patient to be [...] Subcu heparin Charges/Coding Visit Charges Inpatient E&M: 27609 Subs Hosp L2 12/08/24 0921 <Electronically signed by Alex Sanon MD> Cosigner Signature (if applicable): CC: ~ Signed [facility] Work Phone: 1([phone]) 816-761908-07-2025 History and physical note Author Shaan Santos [facility] Note Date/Time December 07, 2024 4:4 8pm [facility] Medical Records Department [address] [place] [address] H&P Exam - Hospitalist 12/07/24 1633 MR#: [id number] Acct: [id number] Name: GERRY RICO Rep #:[id number] : 1945 79 From: Shaan Santos DO PCP: Dr. Marycarmen Rodriguez, DO Status:ADM EDMUND Location: [place] [address] HPI - General General Date of Service: [...] currently on room air and breathing comfortably. [facility] Medical History Anxiety Depression Diabetes Kidney [...] attack) Obstructive sleep apnea Atherosclerotic heart disease [place] coronary artery w/angina pectoris Type 2 diabetes [...] History household members: spouse and none housing: intermediate Smoking Status: Former smoker quit date: 05/03/98 [...] 79.0 H, Lymph % (Auto) 7.9 L, Napa % (Auto) 11.5 H, Eos % (Auto) [...] IMPRESSION: No acute cardiopulmonary process Reading Location: [facility] Assessment & Plan Assessment/Plan (1) Shortness [...] at bedside. Charges/Coding Visit Charges Inpatient E&M: 66054 Init Hosp L3 12/07/24 6911 <Electronically signed by Shaan Santos DO> Cosigner Signature (if applicable): CC: Dr. Shaan Santos DO; Dr. Marycarmen Rodriguez DO~ Signed [facility] Work Phone: 1([phone]) 868-242708-07-2025 Radiology Diagnostic study [facility]08-06-2025 Consult note Author Cyndie Frye [facility] Note Date/Time December 06, 2024 12: 22pm [facility] Medical Records Department [address] [place] [address] Counseling Note - Pharmacy 12/06/24 1222 MR#: [id number] Acct: [id number] Name: GERRY RICO Rep #:[id number] : 1945 79 From: Cyndie Frye PCP: Dr. Marycarmen Rodriguez, DO Status:ADM IN Y Location: [place] [address] Pharmacy [place] Med Reconciliation Pharmacy Service has performed discharge [...] Signature (if applicable): Date CC: ~ Signed [facility] Work Phone: 1(569) 481-566808-06-2025 Hospital Discharge instructionsAdditional Instructions Date of Discharge: 12/06/24[facility] Work Phone: 1(338) 186-842908-06-2025 Discharge summary Author Alex Sanon [facility] Note Date/Time December 06, 2024 11: 59am [facility] Medical Records Department [address] [place] [address] Transfer to [facility] MR#: [id number] Acct: [id number] Name: GERRY RICO Rep #:[id number] : 1945 79 From: Alex Sanon MD PCP: Dr. Marycarmen Rodriguez, DO Status:ADM IN Certification of patient admission REQUIRED AT TIME OF ADMISSION. I CERTIFY THAT POST-HOSPITAL ECF SERVICES ARE REQUIRED TO BE GIVEN ON AN IN-PATIENT BASIS BECAUSE OF THE ABOVE NAMED PATIENT'S NEED FOR SHELTER CARE ON A CONTINUING BASIS FOR THE CONDITION(S) FOR WHICH HE/SHE WAS RECEIVING IN-PATIENT HOSPITAL SERVICES PRIOR TO HIS/HER TRANSFER TO THE ECF. 12/06/24 1159<Electronically signed by Alex Sanon MD> [...] 1. Recent history of acute inferior wall WI with persistent EKG changes; episode of ventricular [...] for PT OT eval and social worker delinquency prevention to assist with discharge planning ? 12/06/2024 plan is for patient to be discharged to a usp facility pending bed availability as well as [...] in before D/C Order can be placed): Long Term Facility 12/06/24 1159 <Electronically signed by Alex Sanon MD> Cosigner Signature (if applicable): CC: Dr. Abraham Ridley DO; Dr. Mickey Simpson MD; Dr. Marycarmen Rodriguez DO;Dr. Ramonita Herron MD ~ [facility] Work Phone: 1(706) 373-309408-06-2025 Discharge summary Author Alex Sanon [facility] Note Date/Time December 06, 2024 11: 55am [facility] Medical Records Department [address] [place] [address] Transfer to [facility] MR#: [id number] Acct: [id number] Name: GERRY RICO Rep #:[id number] : 1945 79 From: Alex Sanon MD PCP: Dr. Marycarmen Rodriguez DO Status:ADM IN Certification of patient admission REQUIRED AT TIME OF ADMISSION. I CERTIFY THAT POST-HOSPITAL ECF SERVICES ARE REQUIRED TO BE GIVEN ON AN IN-PATIENT BASIS BECAUSE OF THE ABOVE NAMED PATIENT'S NEED FOR SHELTER CARE ON A CONTINUING BASIS FOR THE CONDITION(S) FOR WHICH HE/SHE WAS RECEIVING IN-PATIENT HOSPITAL SERVICES PRIOR TO HIS[facility] 12/06/24 1155<Electronically signed by Alex Sanon MD> [...] 1. Recent history of acute inferior wall WI with persistent EKG changes; episode of ventricular [...] for PT OT eval and social worker delinquency prevention to assist with discharge planning ? 12/06/2024 plan is for patient to be discharged to a usp facility pending bed availability as well as [...] in before D/C Order can be placed): Long Term Facility 12/06/24 1155 <Electronically signed by Alex Sanon MD> Cosigner Signature (if applicable): CC: Dr. Abraham Ridley DO; Dr. Mickey Simpson MD; Dr. Marycarmen Rodriguez DO;Dr. Ramonita Herron MD ~ [facility] Work Phone: 1([phone]) 271-830708-06-2025 Discharge summary Author Alex Sanon [facility] Note Date/Time December 06, 2024 11: 53am [facility] Medical Records Department [address] [place] [address] Discharge Summary 12/06/24 1146 MR#: [id number] Acct: [id number] Name: GERRY RICO Rep #:[id number] : 1945 79 From: Alex Sanon MD PCP: Dr. Marycarmen Rodriguez DO Status:ADM IN [facility] Prov[facility] Date of Admission: 12/03/24 [...] 1. Recent history of acute inferior wall WI with persistent EKG changes; episode of ventricular [...] for PT OT eval and social worker delinquency prevention to assist with discharge planning ? 12/06/2024 plan is for patient to be discharged to a usp facility pending bed availability as well as [...] 72.7 H, Lymph % (Auto) 11.6 L, Napa % (Auto) 12.9 H, Eos % (Auto) [...] in before D/C Order can be placed): Long Term Facility Charges/Coding Visit Charges Inpatient E&M: 91079 Disch Hosp >30min 12/06/24 1153 <Electronically signed by Alex Sanon MD> Cosigner Signature (if applicable): CC: Dr. Alex Sanon MD; Dr. Marycarmen Rodriguez, DO~ Signed [facility] Work Phone: 1(464) 914-628908-06-2025 [facility]08-06-2025 Progress note Author Alex Sanon [facility] Note Date/Time December 06, 2024 8:4 0am [facility] Medical Records Department [address] [place] [address] Progress Note - Hospitalist 12/06/24 0838 MR#: [id number] Acct: [id number] Name: GERRY RICO Rep #:[id number] : 1945 79 From: Alex Sanon MD PCP: Dr. Marycarmen Rodriguez, Status:ADM IN Location: [place] [address] Reason for Visit Chief Complaint: Chest Pain with STEMI alert. Subjective Subjective Patient seen remains physically deconditioned. Was seen in consultation by physical therapy recommendation is for patient to be discharged to a usp facility case management subsequently consulted Objective Data [...] 72.7 H, Lymph % (Auto) 11.6 L, Napa % (Auto) 12.9 H, Eos % (Auto) [...] 1. Recent history of acute inferior wall WI with persistent EKG changes; episode of ventricular [...] for PT OT eval and social worker delinquency prevention to assist with discharge planning ? 12/06/2024 plan is for patient to be discharged to a usp facility pending bed availability as well as insurance precertification Time spent in the patient's overall evaluation,decision-making process, review of diagnostic data, adjustment of management, discussion with other providers, nursing nursing and ancillary staff involved in patient's care documentation, 36 Minutes Charges/Coding Visit Charges Inpatient E&M: 62876 Subs Hosp L2 Date medically ready for discharge: 12/06/24 Reason for DC delay: Precert pending from insurance 12/06/24 0840 <Electronically signed by Alex Sanon MD> Cosigner Signature (if applicable): CC: ~ Signed [facility] Work Phone: 1(364) 463-753008-06-2025 Progress note Author Marcin Araujo [facility] Note Date/Time December 06, 2024 7:5 1am [facility] Medical Records Department [address] [place] [address] Progress Note - Cardiology 12/06/24 0747 MR#: [id number] Acct: [id number] Name: GERRY RICO Rep #:[id number] : 1945 79 From: Marcin Araujo MD PCP: Dr. Marycarmen Rodriguez, DO Status:ADM IN Location: [place] [address] Subjective Subjective Patient seen and evaluated. Appears [...] 72.7 H, Lymph % (Auto) 11.6 L, [place] % (Auto) 12.9 H, Eos % (Auto) [...] 72.7 H, Lymph % (Auto) 11.6 L, [place] % (Auto) 12.9 H, Eos % (Auto) [...] Assessment/Plan (1) History of acute inferior wall WI: PLAN: Patient underwent cardiac catheterization and the [...] discharged. Will also keep magnesiumover 2. 12/06/24 0756 <Electronically signed by Marcin Araujo MD> Cosigner Signature (if applicable): CC: ~ Signed [facility] Work Phone: 1(557) 132-726408-05-2025 Progress note Author Alex Sanon [facility] Note Date/Time December 05, 2024 10: 29am [facility] Medical Records Department [address] [place] [address] Progress Note - Hospitalist 12/05/24 1019 MR#: [id number] Acct: [id number] Name: GERRY RICO Rep #:[id number] : 1945 79 From: Alex Sanon MD PCP: Dr. Marycarmen oRdriguez, DO Status:ADM IN Location: [place] [id number] Reason for Visit Chief Complaint: Chest [...] 1. Recent history of acute inferior wall WI with persistent EKG changes; episode of ventricular [...] for PT OT eval and social worker delinquency prevention to assist with discharge planning Time spent in the patient's overall evaluation,decision-making process, review of diagnostic data, adjustment of management, discussion with other providers, nursing nursing and ancillary staff involved in patient's care documentation, 38 Minutes Charges/Coding Visit Charges Inpatient E&M: 26430 Subs Hosp L2 12/05/24 1029 <Electronically signed by Alex Sanon MD> Cosigner Signature (if applicable): CC: ~ Signed [facility] Work Phone: 1(528) 246-627208-05-2025 Progress note Author Marcin Araujo [facility] Note Date/Time December 05, 2024 7:5 3am [facility] Medical Records Department [address] [place] [address] Progress Note - Cardiology 12/05/24 0745 MR#: [id number] Acct: [id number] Name: GERRY RICO Rep #:[id number] : 1945 79 From: Marcin Araujo MD PCP: Dr. Marycarmen Rodriguez, DO Status:ADM IN Location: [place] [address] Subjective Subjective Patient seen and evaluated. Doing [...] Assessment/Plan (1) History of acute inferior wall WI: PLAN: Patient underwent cardiac catheterization and the [...] Cosigner Signature (if applicable): CC: ~ Signed [facility] Work Phone: 1(459) 708-342208-04-2025 Progress note Author Abraham Ridley [facility] Note Date/Time December 04, 2024 2:2 1pm [facility] Medical Records Department [address] [place] [address] Progress Note - Hospitalist 12/04/24 1057 MR#: [id number] Acct: [id number] Name: GERRY RICO Rep #:[id number] : 1945 79 From: Abraham inman DO PCP: Dr. Marycarmen Rodriguez, DO Status:ADM IN Location: [place] [address] Reason for Visit Chief Complaint: Chest Pain [...] 73.9 H, Lymph % (Auto) 11.1 L, [place] % (Auto) 11.9 H, Eos % (Auto) [...] Patient is a 79-year-old male who presented [facility] ED on 12/02/2024 as a STEMI alert. 1. Recent history of acute inferior wall WI with persistent EKG changes; episode of ventricular [...] 35 minutes. Charges/Coding Visit Charges Inpatient E&M: 11059 Subs Hosp L2 12/04/24 1421 <Electronically signed by Abraham Ridley DO> Cosigner Signature (if applicable): CC: ~ Signed [facility] Work Phone: 1(467) 880-807308-04-2025 Progress note Author Marcin Araujo [facility] Note Date/Time December 04, 2024 8:5 2am [facility] Medical Records Department [address] [place] [address] Progress Note - Cardiology 12/04/24724 MR#: [id number] Acct: [id number] Name: GERRY RICO Rep #:[id number] : 1945 79 From: Marcin Araujo MD PCP: Dr. Marycarmen Rodriguez DO Status:ADM IN Location: [place] [address] Subjective Subjective Patient seen and evaluated. Sleeping. [...] 240 / 240 Output Total 2089 / 329 2300 / 2300 Balance -2089 / -2059 / Lab / Micro Data 12/04/24 05:02 12/04/24 05:02 Labs: Laboratory Results - last 24 hr 12/03/24 07:20: Urine Color Yellow, Urine Clarity Clear, Urine pH 6.0, Ur Specific [place] 1.015, Urine Protein 15 H, Urine Glucose [...] 75.5 H, Lymph % (Auto) 10.5 L, [place] % (Auto) 11.4 H, Eos % (Auto) [...] 73.9 H, Lymph % (Auto) 11.1 L, [place] % (Auto) 11.9 H, Eos % (Auto) [...] Clarity Clear, Urine pH 6.0, Ur Specific [place] 1.015, Urine Protein 15 H, Urine Glucose [...] 75.5 H, Lymph % (Auto) 10.5 L, [place] % (Auto) 11.4 H, Eos % (Auto) [...] 73.9 H, Lymph % (Auto) 11.1 L, [place] % (Auto) 11.9 H, Eos % (Auto) 2.2, Baso % (Auto) 0.3, Absolute Neuts (auto) 7.1, Nucleated RBC % 0, Sodium 137, Potassium 3.1 L, Chloride 96 L, Carbon Dioxide 21.4, Anion Gap 19 H, BUN 49 H, Creatinine 2.53 H, Est GFR (MDRD) Non-Af 25 L, BUN/Creatinine Ratio 19.4, Vyrwknf857 H, Calcium 9.2 Rhythm: EKG: ECHO: Stress [...] Assessment/Plan (1) History of acute inferior wall WI: PLAN: Patient underwent cardiac catheterization and the [...] Cosigner Signature (if applicable): CC: ~ Signed [facility] Work Phone: 1(143) 470-434608-04-2025 Consult note Author Marcin Araujo [facility] Note Date/Time December 04, 2024 6:4 7am [facility] Medical Records Department [address] [place] [address] Consultation - Cardiology 12/03/24 1241 MR#: [id number] Acct: [id number] Name: GERRY RICO Rep #:[id number] : 1945 79 From: Marcin Araujo MD PCP: Dr. Marycarmen Rodriguez, DO Status:ADM IN Location: [place] [address] Documented by User: Dr. Mickey Simpson MD 12/03/24 16:19 Assessment & Plan Assessment/Plan (1) History of acute inferior wall WI: (2) Coronary artery vasospasm: PLAN: - Patient [...] which the patient was brought into the [facility] urgent cardiac catheterization was performed via left [...] kidney disease, stage 3 Atherosclerotic heart disease [place] coronary artery w/angina pectoris Type 2 diabetes [...] 76.7 H, Lymph % (Auto) 8.9 L, [place] % (Auto) 12.7 H, Eos % (Auto) [...] Calcium 9.1, Troponin T High Sens > 38964 H* D 12/02/24 20:29: Activated Clotting Time 245 H 12/02/24 22:43: Troponin T Hi Sens 2 Hr > 98792 H* 12/03/24 01:17: Troponin T Hi Sens 4Hr > 28254 H* 12/03/24 06:14: POC Glucose 140 H 12/03/24 07:20: Urine Color Yellow, Urine Clarity Clear, Urine pH 6.0, Ur Specific [place] 1.015, Urine Protein 15 H, Urine Glucose [...] 75.5 H, Lymph % (Auto) 10.5 L, [place] % (Auto) 11.4 H, Eos % (Auto) [...] 76.7 H, Lymph % (Auto) 8.9 L, [place] % (Auto) 12.7 H, Eos % (Auto) [...] Clarity Clear, Urine pH 6.0, Ur Specific [place] 1.015, Urine Protein 15 H, Urine Glucose [...] 75.5 H, Lymph % (Auto) 10.5 L, [place] % (Auto) 11.4 H, Eos % (Auto) [...] Assessment/Plan (1) History of acute inferior wall WI: (2) Coronary artery vasospasm: (3) CHF (congestive heart failure): QUALIFIERS: Heart failure chronicity: acute on chronic Heart failure type: diastolic Qualified Code(s): I50.33 - Acute on chronic diastolic (congestive) heart failure (4) Dyslipidemia: HPI Consult Data Date of Consult: 12/04/24 [facility] Medical History Anemia Diabetes mellitus Chronic [...] kidney disease, stage 3 Atherosclerotic heart disease [place] coronary artery w/angina pectoris Type 2 diabetes [...] 40 mg PO QHS CHOLESTEROL #90 tabs 02/12/25 Unknown Rx losartan 100 mg tablet 100 [...] Simpson MD; Dr. Marycarmen Rodriguez DO~ Signed [facility] Work Phone: 1(496) 959-554808-03-2025 Progress note Author Ramonita Herron [facility] Note Date/Time December 03, 2024 3:5 7pm [facility] Medical Records Department [address] [place] [address] Progress Note - Hospitalist 12/03/24 1548 MR#: [id number] Acct: [id number] Name: GERRY RICO Rep #:[id number] : 1945 79 From: Ramonita Herron MD PCP: Dr. Marycarmen Rodriguez DO Status:ADM IN Location: [place] [address] Reason for Visit Chief Complaint: Chest Pain [...] 76.7 H, Lymph % (Auto) 8.9 L, [place] % (Auto) 12.7 H, Eos % (Auto) [...] Calcium 9.1, Troponin T High Sens > 50654 H* D 12/02/24 20:29: Activated Clotting Time 245 H 12/02/24 22:43: Troponin T Hi Sens 2 Hr > 24262 H* 12/03/24 01:17: Troponin T Hi Sens 4Hr > 29168 H* 12/03/24 06:14: POC Glucose 140 H 12/03/24 07:20: Urine Color Yellow, Urine Clarity Clear, Urine pH 6.0, Ur Specific [place] 1.015, Urine Protein 15 H, Urine Glucose [...] 75.5 H, Lymph % (Auto) 10.5 L, [place] % (Auto) 11.4 H, Eos % (Auto) [...] Recent STEMI -Was emergently taken to the [facility] 11/30 due to a STEMI. Emergent cath [...] on 12/02 and went emergently to the [facility] however no intervention was needed or warranted [...] Herron MD Charges/Coding Visit Charges Inpatient E&M: 13737 Subs Hosp L2 12/03/24 8707 <Electronically signed by Ramonita Herron MD> Cosigner Signature (if applicable): CC: ~ Signed [facility] Work Phone: 1([phone]) 384-401808-03-2025 History and physical note Author Alex Resendez [facility] Note Date/Time December 03, 2024 5:5 6am [facility] Medical Records Department [address] [facility] [place] [address] H&P Exam - Hospitalist 12/02/242049 MR#: [id number] Acct: [id number] Name: GERRY RICO Rep #:[id number] : 1945 79 From: Alex Colon DO PCP: Dr. 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 [...] symptoms are very similar to his previous WI's. There was no report of associated fever,chills, [...] is expected to extend beyond 2 midnights. 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 Patient taken for emergent LHC by [facility] with the patient suspected to have acute coronary vasospasm with no lesion noted so patient will be managed in PCU. Continue present treatment with baby aspirin, ticagrelor and IV heparin. Give acetaminophen as needed for uxdu-ii-vksahyik (level 1-5/10) pain or fever. Give morphine [...] 75 minutes. Charges/Coding Visit Charges Inpatient E&M: 18324 Init Hosp L3 12/03/24 0556 <Electronically signed by Alex Sow DO> Cosigner Signature (if applicable): CC: Dr. Alex Sow DO; Dr. Marycarmen Rodriguez DO~ Signed [facility] Work Phone: 1([phone]) [phone] Discharge summary Author Rasheed Canela [facility] Note Date/Time December 02, 2024 8:5 3pm [facility] Medical Records Department [address] [place] [address] Emergency Department Summary 12/02/24 MR#: [id number] Acct: [id number] Name: GERRY RICO Rep #:[id number] : [...] EKG changes consistent with a ST elevation WI. He had 3 to 4 mm of [...] Prior Similar Symptoms: Yes and With Prior WI CVD Risk Factors: Positive for Hypertension, Diabetes and Hypercholesterolemia [facility] Medical History Anemia Diabetes mellitus Chronic [...] kidney disease, stage 3 Atherosclerotic heart disease [place] coronary artery w/angina pectoris Type 2 diabetes [...] was reviewed. Spoke with Dr. Simpson the police clerk. He was made aware of patient's history, EKG findings and prehospital treatment. Lab Data Attestation: I reviewed the patient's lab results. Lab results narrative: EKG was not repeated since prehospital EKG revealed ST elevation WI with reciprocal changes. CBC reveals mild anemia [...] 76.7 H Lymph % (Auto) 8.9 L [place] % (Auto) 12.7 H Eos % (Auto) [...] healthcare provider: Hospitalist (Dr. Alex Handley) and Loss Prevention Supervisor (dynamite shooter) Critical Care Time Critical Care Time: Yes Critical care time (excluding procedures): 30-74 minutes (15), Including time spent: (History, physical, documentation, prehospital med direction, discussion with , review of prior records and independent rotation of EKG), Discussing w/Patient &/or Family/Crew Leader/Control Room Operator (Spoke with who informing that he just left the hospital this afternoon to attend his granddaughter's wedding.), Discussing w/Consultants (dynamite shooter and hospitalist) and Arranging Admission or Transfer Discharge Plan Dx/Rx/DC Orders Clinical Impression: Acute ST elevation myocardial infarction (STEMI) of inferior wall, Obstructive sleep apnea, Obesity, Chronic kidney disease, Diabetes mellitus, Hyperlipidemia Disposition Disposition: Acute Care Hospital [facility] What to do if you have Problems For any increased pain, shortness of breath, bleeding, nausea or vomiting, chestpain, or any unexpected problems, contact your Primary Care Provider. Call [facility] ([phone]) or report to the closest Emergency Room. Call 911 if necessary. 12/02/242052 <Electronically signed by Rasheed Canela MD> Cosigner Signature (if applicable): CC: Dr. Marycarmen Rodriguez, DO ~ Signed [facility] Work Phone: 1(853) 481-840408-02-2025 Consult note Author Jamar Tapia [facility] Note Date/Time December 02, 2024 12: 23pm [facility] Medical Records Department [address] [place] [address] Consultation - Neurology 12/02/24 1207 MR#: [id number] Acct: [id number] Name: GERRY RICO Rep #:[id number] : 1945 79 From: Jamar Hooker PCP: Dr. Marycarmen Rodriguez, Status:ADM IN Location: [place] [address] Assessment and Plan: Neuro Assessment/Plan GERRY RICO [...] questions or concerns. Stroke to sign off. [facility] Medical History (Updated 12/01/24 @ 09:47 [...] kidney disease, stage 3 Atherosclerotic heart disease [place] coronary artery w/angina pectoris Type 2 diabetes [...] 78.9 H, Lymph % (Auto) 7.6 L, [place] % (Auto) 12.0 H, Eos % (Auto) [...] 2. Age-related senescent changes. Reading Location: [facility] Active Medications Active Medications Active Medications: Current Medications Generic Name Dose Route Start Last Admin Trade Name Freq PRN Reason Stop Dose Admin Acetaminophen 650 mg 11/30/24 16:57 12/01/24 21:00 Acetaminophen 325 Mg Tablet PO 650 mg Q6H PRN Administration Pain 1-10/ Hydrocodone Bitart/Acetaminophen 1 tablet 11/30/24 16:57 12/01/24 [...] mls @ 15 mls/hr 11/30/24 17:25 IV .[id number] PRN Saline Flush Sodium Chloride 250 mls @ 15 mls/hr 11/30/24 17:25 IV .[id number] PRN Additional IVPB Infusion Insulin Human Lispro 0 unit 11/30/24 22:00 12/02/24 06:30 Insulin Lispro 100 Unit/Ml Insuln.Pen SC Not Given ACHS [facility] Protocol Labetalol HCl 10 - 20 mg 12/01/24 20:19 Labetalol 20 Mg/4 Ml Vial IV 12/02/24 20:19 Q10M PRN PRN maintain BP parameters with HR >/=60 Loratadine 10 mg 12/02/24 10:00 Loratadine 10 Mg Tablet PO Q48 PRN ALLERGIES Magnesium Chloride 128 mg 12/01/24 10:00 12/02/24 09:59 Magnesium Chloride 64 Mg Delay Rel.Tablet PO 128 mg DAILY [facility] Administration Melatonin 3 mg 11/30/24 17:08 12/01/24 20:59 Melatonin 3 Mg Tablet PO 3 mg QHS PRN PRN Administration INSOMNIA Metolazone 2.5 mg 12/01/24 10:00 Metolazone 2.5 Mg Tablet PO DAILY [facility] Protocol Metoprolol Succinate 25 mg 12/01/24 10:00 12/02/24 10:00 Metoprolol(Xl)Succ 25 Mg Tablet PO 25 mg DAILY [facility] Administration Protocol Mirtazapine 15 mg 11/30/24 22:00 12/01/24 20:59 Mirtazapine 15 Mg Tablet PO 15 mg QHS [facility] Administration Nitroglycerin 0.4 mg 11/30/24 17:31 Nitroglycerin (Inpatient Use) 0.4 Mg Tab.Subl SL Q5M PRN CARDIAC/CHEST PAIN Nutritional Formula (Lactose Free) 120 ml 12/02/24 12:00 Glucerna Shake 120 Ml Liquid PO TIDCM [facility] Ondansetron HCl 4 mg 11/30/24 17:08 12/01/24 08:34 Ondansetron 4 Mg/2 Ml Vial IV 4 mg Q8H PRN PRN Administration NAUSEA/VOMITING Pantoprazole Sodium 40 mg 12/01/24 10:00 12/02/24 09:59 Pantoprazole Sodium 40 Mg Tablet PO 40 mg DAILY [facility] Administration Sodium Chloride 500 ml 11/30/24 16:51 [...] or with change in RN caregiver Freq: [id number] Protocol: Activity Type Activity Date Activity User E-sign Co-sign Detail Recorded Client Recorded Date Recorded By Document 12/01/24 20:15 CD [id number] 12/01/24 20:28 CD 12/01/24 20:15 [facility] Stroke [...] and with change in RN caregiver. Freq: C7HAVDS Protocol: Activity Type Activity Date Activity User E-sign Co-sign Detail Recorded Client Recorded Date Recorded By Document 12/02/24 10:00 GRIS [id number] 12/02/24 10:20 TSTIKA 12/02/24 10:00 [facility] Stroke [...] Hay MD; Dr. Marycarmen Rodriguez, DO~ Signed [facility] Work Phone: 1(828) 737-312608-02-2025 Discharge summary Author Rasheed Canela [facility] Note Date/Time December 02, 2024 8:5 3pm [facility] Medical Records Department [address] [place] [address] Emergency Department Summary 12/02/24 MR#: [id number] Acct: [id number] Name: GERRY RICO Rep #:[id number] : [...] EKG changes consistent with a ST elevation WI. He had 3 to 4 mm of [...] Prior Similar Symptoms: Yes and With Prior WI CVD Risk Factors: Positive for Hypertension, Diabetes and Hypercholesterolemia [facility] Medical History Anemia Diabetes mellitus Chronic [...] kidney disease, stage 3 Atherosclerotic heart disease [place] coronary artery w/angina pectoris Type 2 diabetes [...] was reviewed. Spoke with Dr. Simpson the police clerk. He was made aware of patient's history, EKG findings and prehospital treatment. Lab Data Attestation: I reviewed the patient's lab results. Lab results narrative: EKG was not repeated since prehospital EKG revealed ST elevation WI with reciprocal changes. CBC reveals mild anemia [...] 76.7 H Lymph % (Auto) 8.9 L [place] % (Auto) 12.7 H Eos % (Auto) [...] healthcare provider: Hospitalist (Dr. Alex Handley) and Loss Prevention Supervisor (dynamite shooter) Critical Care Time Critical Care Time: Yes Critical care time (excluding procedures): 30-74 minutes (15), Including time spent: (History, physical, documentation, prehospital med direction, discussion with , review of prior records and independent rotation of EKG), Discussing w/Patient &/or Family/Crew Leader/Control Room Operator (Spoke with who informing that he just left the hospital this afternoon to attend his granddaughter's wedding.), Discussing w/Consultants (dynamite shooter and hospitalist) and Arranging Admission or Transfer Discharge Plan Dx/Rx/DC Orders Clinical Impression: Acute ST elevation myocardial infarction (STEMI) of inferior wall, Obstructive sleep apnea, Obesity, Chronic kidney disease, Diabetes mellitus, Hyperlipidemia Disposition Disposition: Acute Care Hospital [facility] What to do if you have Problems For any increased pain, shortness of breath, bleeding, nausea or vomiting, chestpain, or any unexpected problems, contact your Primary Care Provider. Call [facility] ([phone]) or report to the closest Emergency Room. Call 911 if necessary. 12/02/242052 <Electronically signed by Rasheed Canela MD> Cosigner Signature (if applicable): CC: Dr. Marycarmen Rodriguez, DO ~ Signed [facility] Work Phone: 1([phone]) 875-797608-02-2025 Hospital Discharge instructionsAdditional Instructions 1. It is very important to not miss any doses of your ticagrelor (Brilinta) and aspirin. Please take these as prescribed with no missed doses. If you miss doses you could clot off your stents. Date of Discharge: 12/02/24[facility] Work Phone: 1(397) 129-503008-02-2025 [facility]08-01-2025 Progress note Author Abraham Ridley [facility] Note Date/Time December 01, 2024 8:2 6pm [facility] Medical Records Department [address] [place] [address] Progress Note - Hospitalist 12/01/242020 MR#: [id number] Acct: [id number] Name: GERRY RICO Rep #:[id number] : 1945 79 From: Abraham inman DO PCP: Dr. Marycarmen Rodriguez, DO Status:ADM IN Location: [place] [address] Hospitalist Note Stroke alert called around 7 PM. Last known well 6:55 PM. Patient reported to [facility] that he had left facial numbness and [...] Cosigner Signature (if applicable): CC: ~ Signed [facility] Work Phone: 1(320) 116-444008-01-2025 Radiology Diagnostic study [facility]08-01-2025 Progress note Author Nickie Danielson [facility] Note Date/Time December 01, 2024 3:5 0pm [facility] Medical Records Department [address] [place] [address] Progress Note - Hospitalist 12/01/2413 MR#: [id number] Acct: [id number] Name: GERRY RICO Rep #:[id number] : 1945 79 From: Nickie Danielson DO PCP: Dr. Marycarmen Rodriguez, DO Status:ADM IN Location: [place] [address] 1 Reason for Visit Chief Complaint: STEMI [...] 80.9 H, Lymph % (Auto) 10.1 L, [place] % (Auto) 7.7, Eos % (Auto) 0.4, Baso % (Auto) 0.2, Absolute Neuts (auto) 15.5 H, Absolute Lymphs (auto) 1.93, Nucleated RBC % 0.1, PT 16.1 H, INR 1.3, APTT 112.9 H*, Sodium 135, Potassium 4.4, Chloride 98, Carbon Ifntvkk76.3 L, Anion Gap 19 H, BUN 45 [...] acute pulmonary disease. Reading Location: [facility] Physical Exam Const alert, oriented x3, [...] subcu heparin Charges/Coding Visit Charges Inpatient E&M: 48329 Subs Hosp L2 12/01/24 1550 <Electronically signed by Nickie Danielson DO> Cosigner Signature (if applicable): CC: ~ Signed [facility] Work Phone: 1([phone]) 153-119308-01-2025 Progress note Author Marcin Araujo [facility] Note Date/Time December 01, 2024 7:3 7am [facility] Medical Records Department [address] [place] [address] Progress Note - Cardiology 12/01/24 0734 MR#: [id number] Acct: [id number] Name: GERRY RICO Rep #:[id number] : [...] 80.9 H, Lymph % (Auto) 10.1 L, [place] % (Auto) 7.7, Eos % (Auto) 0.4, Baso % (Auto) 0.2, Absolute Neuts (auto) 15.5 H, Absolute Lymphs (auto) 1.93, Nucleated RBC % 0.1, PT 16.1 H, INR 1.3, APTT 112.9 H*, Sodium 135, Potassium 4.4, Chloride 98, Carbon Tqxjuna31.3 L, Anion Gap 19 H, BUN 45 [...] 80.9 H, Lymph % (Auto) 10.1 L, [place] % (Auto) 7.7, Eos % (Auto) 0.4, [...] acute pulmonary disease. Reading Location: [facility] Physical Exam Const alert, oriented x3 [...] Cosigner Signature (if applicable): CC: ~ Signed [facility] Work Phone: 1(333) 873-751307-31-2025 Discharge summary Author Isael Bernabe [facility] Note Date/Time November 30, 2024 9:35 pm [facility] Medical Records Department [address] [place] [address] Emergency Department Summary 11/30/24 MR#: [id number] Acct: [id number] Name: GERRY RICO Rep #:[id number] : [...] was sent, they administeredaspirin, Brilinta, and heparin. [facility] Medical History Diabetes mellitus Chronic [...] kidney disease, stage 3 Atherosclerotic heart disease [place] coronary artery w/angina pectoris Type 2 diabetes [...] laboratory work that was requested by the [employer] [facility]. Does not have elevation of his [...] 80.9 H Lymph % (Auto) 10.1 L [place] % (Auto) 7.7 Eos % (Auto) 0.4 [...] myocardial infarction Disposition Disposition: Acute Care Hospital [facility] Discharge Date/Time: 11/30/24 15:21 What to do if you have Problems For any increased pain, shortness of breath, bleeding, nausea or vomiting, chestpain, or any unexpected problems, contact your Primary Care Provider. Call [facility] ([phone]) or report to the closest Emergency Room. Call 911 if necessary. 11/30/242 <Electronically signed by Isael Bernabe MD> Cosigner Signature (if applicable): CC: Dr. Marycarmen Rodriguez, DO ~ Signed [facility] Work Phone: 1(769) 632-614207-31-2025 Progress note Author Isael Bernabe [facility] Note Date/Time November 30, 2024 9:33 pm [facility] Medical Records Department [address] [place] [address] Quality Report 11/30/24 1605 MR#: [id number] Acct: [id number] Name: GERRY RICO Rep #:[id number] : [...] applicable): Date Donald Bill CC: ~ Signed [facility] Work Phone: 1(928) 379-350307-31-2025 History and physical note Author Abraham Ridley [facility] Note Date/Time November 30, 2024 9:30 pm [facility] Medical Records Department [address] [place] [address] H&P Exam - Hospitalist 11/30/24 1705 MR#: [id number] Acct: [id number] Name: GERRY RICO Rep #:[id number] : 1945 79 From: Abraham inman DO PCP: Dr. Marycarmen Marly, DO Status:ADM IN Location: ICU CVICU20 3-1 HPI - General General Date of Admission: 11/30/24 Date of Service: 11/30/24 Chief Complaint: STEMI HPI Narrative GERRY RICO, is a 79 M who presented to [facility] on 11/30/2024 as a STEMI alert. Follows with [place] cardiology with complex CAD history, see office [...] STEMI. He was taken emergently to the [employer] [facility] and coronary angiography revealed a subacute [...] room air. No other acute concerns currently. [facility] Medical History Diabetes mellitus Chronic [...] kidney disease, stage 3 Atherosclerotic heart disease [place] coronary artery w/angina pectoris Type 2 diabetes [...] 80.9 H, Lymph % (Auto) 10.1 L, Napa % (Auto) 7.7, Eos % (Auto) 0.4, [...] Patient is a 79-year-old male who presented [facility] ED on 11/30/2024 as a STEMI alert. [...] with hyperglycemia: Blood glucose 328 on admit. GgmbI7o from 2022 was 7.7%. Repeat A1c ordered. [...] 75 minutes. Charges/Coding Visit Charges Inpatient E&M: 14377 Init Hosp L3 11/30/240 <Electronically signed by Abraham Ridley DO> Cosigner Signature (if applicable): CC: Dr. Abraham Ridley DO; Dr. Marycarmen Rodriguez DO~ Signed [facility] Work Phone: 1([phone]) [phone] Radiology Diagnostic study [facility]2025 Consult note Author Jose Hay [facility] Note Date/Time November 30, 2024 4:51 pm [facility] Medical Records Department [address] [place] [address] Consultation - Cardiology 11/30/24 1642 MR#: [id number] Acct: [id number] Name: GERRY RICO Rep #:[id number] : [...] infarction. Subsequently a STEMI alert was called. [facility] Medical History (Updated 11/30/24 @ 16:48 [...] kidney disease, stage 3 Atherosclerotic heart disease [place] coronary artery w/angina pectoris Type 2 diabetes [...] 650 mg PO Q6H PRN Pain 1-1 /10/12/23 Unknown History glimepiride 4 mg tablet 4 [...] 80.9 H, Lymph % (Auto) 10.1 L, Napa % (Auto) 7.7, Eos % (Auto) 0.4, [...] 80.9 H, Lymph % (Auto) 10.1 L, Napa % (Auto) 7.7, Eos % (Auto) 0.4, [...] Hay MD; Dr. Marycarmen Rodriguez DO~ Signed [facility] Work Phone: 1([phone]) 211-657107-29-2025 Consult note Author Cyndie Frye [facility] Note Date/Time November 28, 2024 12:2 8pm [facility] Medical Records Department [address] [place] [address] Counseling Note - Pharmacy 11/28/24 0920 MR#: [id number] Acct: [id number] Name: GERRY RICO Rep #:[id number] : 1945 79 From: Cyndie Frye PCP: Dr. Marycarmen Rodriguez DO Status:ADM EDMUND Y Location: [place] [address] [place] Med Reconciliation Pharmacy Service has performed discharge [...] Signature (if applicable): Date CC: ~ Signed [facility] Work Phone: 1([phone]) 206-467407-28-2025 Discharge summary Author Jose Hay [facility] Note Date/Time November 27, 2024 11:3 5am [facility] Medical Records Department [address] [place] [address] Instructions for Home/Discharge Instructions 11/27/24 1128 MR#: [id number] Acct: [id number] Name: GERRY RICO Rep #:[id number] : [...] Care Provider: Marycarmen Rodriguez Instructions Print Language: Swedish Discharge Orders/Prescriptions Prescriptions: New furosemide 80 mg [...] CC: Dr. Marycarmen Rodriguez DO ~ Signed [facility] Work Phone: [phone]) [phone] Radiology Diagnostic study [facility]07-27-2025 Radiology Diagnostic study [facility]07-27-2025 Radiology Diagnostic study [facility] 11-26-2024 Radiology Diagnostic study [facility]07-27-2025 Radiology Diagnostic study [facility]07-27-2025 Radiology Diagnostic study [facility]07-27-2025 Discharge summary Author [facility] Note Date/Time November 26, 2024 9:41 pm [facility] Medical Records Department [address] [place] [address] Emergency Department Summary 11/26/24 MR#: [id number] Acct: [id number] Name: GERRY RICO Rep #:[id number] : [...] presents status post fall with chest heaviness. [facility] Medical History Shortness of breath Unstable [...] kidney disease, stage 3 Atherosclerotic heart disease [place] coronary artery w/angina pectoris Type 2 diabetes [...] cleansed and dressed. He was given 1 [place] which he usually takes at home for pain. He was able to ambulate without difficulty. At this point in time, he is motivated for discharge. I do not feel that he requires admission at this time or observation. I feel he can be discharged to follow-upwith his cardiac catheterization tomorrow morning. Patient will continue his [place] at home and follow-up as previously directed. [...] 71.8 H Lymph % (Auto) 16.7 L Napa % (Auto) 9.5 Eos % (Auto) 1.3 [...] IMPRESSION: No acute intracranial process. Reading Location: [facility] Cervical Spine CT 11/26/24 18:03 IMPRESSION: No acute compression deformity, fracture, or subluxation. Moderate multilevel degenerative changes of the cervical spine. Cervical ACDF with interbody spacers spanning C4-C6 without hardware complications. Reading Location: [facility] Chest X-Ray 11/26/24 18:03 IMPRESSION: Negative for edema Reading Location: [facility] Knee X-Ray 11/26/24 18:03 IMPRESSION: Degenerative changes without fracture Reading Location: [facility] Hand X-Ray 11/26/24 18:07 IMPRESSION: Degenerative changes. No visible fracture. Reading Location: [facility] Knee X-Ray 11/26/24 18:07 IMPRESSION: Joint effusion Reading Location: [facility] Management Discussion w/another healthcare provider: Loss Prevention Supervisor (Dr. Araujo) Discharge Plan Triage Chief Complaint: [...] with new or worsening symptoms. Print Language: Swedish Disposition Disposition: Home, Self Care What to do if you have Problems For any increased pain, shortness of breath, bleeding, nausea or vomiting, chestpain, or any unexpected problems, contact your Primary Care Provider. Call [facility] ([phone]) or report to the closest Emergency Room. Call 911 if necessary. 11/26/242140 <Electronically signed by Isael Bernabe MD> Cosigner Signature (if applicable): CC: Dr. Marycarmen Rodriguez DO ~ Signed [facility] Work Phone: 1([phone]) 389-306707-27-2025 Hospital Discharge instructionsAdditional Instructions Have your cardiac catheterization performed tomorrow as scheduled at 8:30 in the morning. Return with new or worsening symptoms.[facility] Work Phone: [phone]) 258-202507-24-2025 Radiology Diagnostic study [facility]07-21-2025 Radiology Diagnostic study [facility]05-21-2025 Evaluation note* Diagnosis Onset Date Resolution Status Admit Date COPD (chronic obstructive pulmonary disease) chronic September 20 10:13am Diastolic heart failure chronic [facility] 2024 10:13am Obesity chronic September 20, 2024 10:13am Obstructive sleep apnea chronic [facility] 2024 10:13am Shortness of breath acute October 25, 2024 7:54am 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 25, 2024 7:54am Chest pain chronic October 25 7:54am 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, stage 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 October 25, 2024 7:54am Coronary artery [...] Obstructive sleep apnea chronic J 2024 10:00am [facility] Work Phone: [phone]) 444-773405-21-2025 Evaluation note* Diagnosis Onset Date Resolution Status Admit Date COPD (chronic obstructive pulmonary disease) chronic September 20 10:13am Diastolic heart failure chronic M 2024 10:13am Obesity chronic September 20, 2024 10:13am Obstructive sleep apnea chronic ay 2024 10:13am Shortness of breath acute October 25, 2024 7:54am 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 25, 2024 7:54am Chest pain chronic October 25 7:54am Chronic kidney disease, stage 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 October 25, 2024 7:54am Coronary artery [...] 22, 2024 10:53am 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 November 22, 2024 10:53am Chest pain chronic November 22 10:53am Chronic kidney disease, stage 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 November 22, 2024 10:53am Essential hypertension chronic Ju ly 2024 10:53am Hyperlipidemia chronic November 22, 2024 10:53am Obesity chronic November 22 10:53am Type 2 diabetes mellitus wit hout complications chronic November 22, 2024 10:53am [facility] [employer] [facility] Work Phone: [phone]) 118-763905-21-2025 Evaluation note* Diagnosis Onset Date Resolution Status Admit Date COPD (chronic obstructive pulmonary disease) chronic September 20 10:13am Diastolic heart failure chronic M ay 2024 10:13am Obesity chronic September 20, 2024 10:13am Obstructive sleep apnea chronic M ay 2024 10:13am Shortness of breath acute October 25, 2024 7:54am 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 25, 2024 7:54am Chest pain chronic October 25 7:54am Chronic kidney disease, stage 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 October 25, 2024 7:54am Coronary artery [...] 22, 2024 10:53am 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 November 22, 2024 10:53am Chest pain chronic November 22 10:53am Chronic kidney disease, stage 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 November 22, 2024 10:53am Essential hypertension [...] 2024 4:59pm 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, stage 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 November 30, 2024 4:59pm Coronary artery disease chronic J shannon 2024 4:59pm Dyslipidemia chronic November 30, 2 025 4:59pm Essential hypertension chronic Ju ly 2024 4:59pm [facility] Work Phone: 1(842) [phone] Evaluation note* Diagnosis Onset Date Resolution Status [...] Essential hypertension chronic Ju ly 2024 4:59pm [facility] Work Phone: [phone]) [phone] Evaluation note* Diagnosis Onset Date Resolution Status [...] sleep apnea chronic A ugust 2024 8:29pm [facility] Work Phone: 1([phone]) 999-505205-21-2025 Evaluation note* Diagnosis Onset Date Resolution Status Admit Date COPD (chronic obstructive pulmonary disease) chronic September 20 10:13am Diastolic heart failure chronic M ay 2024 10:13am Obesity chronic September 20, 2024 10:13am Obstructive sleep apnea chronic ay 2024 10:13am Shortness of breath acute Lara 25th, 2025 7:54am Bilateral lower extremity edema chronic October 25, 2024 7:54am Hyperlipidemia chronic October 25, 2024 7:54am Obesity chronic October 25 7:54am Type 2 diabetes mellitus without complications chronic October 25, 2024 7:54am Chest pain resolved October 25 7:54am Coronary artery disease inactive J [facility] 2024 7:54am Essential hypertension inactive Ju ne [...] 2024 2:01am History of acute inferior wall [place] acute December 03, 2024 2:01am Hyponatremia acute [...] 2:01am Dyslipidemia inactive December 03, 2024 2:01am [facility] Work Phone: 1([phone]) 151-169605-21-2025 Evaluation note* Diagnosis Onset Date Resolution Status Admit Date COPD (chronic obstructive pulmonary disease) chronic September 20 10:13am Diastolic heart failure chronic 2024 10:13am Obesity chronic September 20, 2024 10:13am Obstructive sleep apnea chronic 2024 10:13am Shortness of breath acute October [...] 31, 2024 10:00am Central sleep apnea acute Gloria 1st, 2025 10:00am COPD (chronic obstructive pulmonary disease) chronic October 31 10:00am Diastolic heart failure chronic J 2024 10:00am Obesity chronic October 31, 2024 10:00am Obstructive sleep apnea chronic [facility]2024 10:00am Presence of stent in coronar y [...] 4:58pm Chronic kidney disease inactive [facility] 2024 4:58pm Coronary artery disease inactive J [facility] 2024 4:58pm Diabetes mellitus inactive November 302024 4:58pm Dyslipidemia inactive November 30, 2 025 4:58pm Essential hypertension inactive [facility] 2024 4:58pm Chronic kidney disease, stag e 3 deleted November 30, 2024 4:58pm Acute ST elevation myocardia l infarction (STEMI) of inferior wall acute December 03, 2024 2:01am Coronary artery vasospasm acute December 03, 2024 2:01am History of acute inferior wall [place] acute December 03, 2024 2:01am Hyponatremia acute [...] 4:24pm Shortness of breath acute 2024 4:24pm [facility] Work Phone: 1(253) 693-550705-21-2025 Evaluation note* Diagnosis Onset Date Resolution Status [...] 2024 2:01am History of acute inferior wall [place] acute December 03, 2024 2:01am Hyponatremia acute [...] resolved December 2:01am Chronic kidney disease inactive [facility] 2024 2:01am Coronary artery disease inactive A ugust 2024 2:01am Diabetes mellitus inactive December 03, 2024 2:01am Dyslipidemia inactive December 03, 2024 2:01am Chest pain acute December 07 4:24pm DEAN (dyspnea on exertion) acute December 07, 2024 4:24pm Recent ST elevation myocardial infarction (STEMI) acute 2024 4:24pm Shortness of breath acute 2024 4:24pm [facility] Work Phone: 1(911) 922-115205-21-2025 Evaluation note* Diagnosis Onset Date Resolution Status Admit Date COPD (chronic obstructive pulmonary disease) chronic September 20 10:13am Diastolic heart failure chronic [facility] 2024 10:13am Obesity chronic September 20, 2024 10:13am Obstructive sleep apnea chronic [facility] 2024 10:13am Bilateral lower extremity edema chronic [...] 2024 2:01am History of acute inferior wall [place] inactive December 03, 2024 2:01am DEAN (dyspnea on exertion) resolved December 07, 2024 4:24pm Shortness of breath resolved Augus t 5 4:24pm Chest pain inactive December 07 4:24pm Recent ST elevation myocardial infarction (STEMI) inactive Au [facility]aj 2024 4:24pm Presence of stent in coronar y artery Aug, 2022 acute December 12 10:14am Bilateral lower extremity edema chronic December 12 10:14am Hyperlipidemia chronic December 10:14am Obesity chronic December 12 10:14am Type 2 diabetes mellitus without complications chronic December 10:14am Chest pain resolved December 12 10:14am Shortness of breath resolved t 2024 10:14am Essential hypertension inactive Au [facility]aj 2024 10:14am Chronic kidney disease, stag e 3 deleted December 12 10:14am [facility] Work Phone: 1(790) 105-514105-21-2025 Evaluation note* Diagnosis Onset Date Resolution Status [...] October 25 7:54am Coronary artery disease inactive 2024 7:54am Chronic kidney disease, stage 3 [...] 2024 2:01am History of acute inferior wall [place] inactive December 03, 2024 2:01am Shortness of [...] December 12, 10:14am Shortness of breath chronic Dec[facility] t 2024 10:14am Type 2 diabetes mellitus without complications chronic December 10:14am Chest pain resolved December 12, 10:14am Chronic kidney disease, stage 3 deleted [...] diabetes mellitus without complications chronic December 2:35pm [facility] Work Phone: 1(110) 237-902305-21-2025 Evaluation note* Diagnosis Onset Date Resolution Status Admit Date COPD (chronic obstructive pulmonary disease) inactive September 20 10:13am Diastolic heart failure inactive [facility] 2024 10:13am Obesity inactive September 20, 2024 10:13am Obstructive sleep apnea inactive [facility] 2024 10:13am Chest pain resolved October 25 7:54am Bilateral lower extremity edema inactive October 25, 2024 7:54am Coronary artery disease inactive [facility] 2024 7:54am Essential hypertension inactive 2024 7:54am [...] October 31 10:00am Diastolic heart failure inactive [facility] 2024 10:00am Obesity inactive October 31, 2024 10:00am Obstructive sleep apnea inactive [facility] 2024 10:00am Chest pain resolved November 22 10:53am Bilateral lower extremity edema inactive November 22, 2024 10:53am Essential hypertension inactive [facility] 2024 10:53am Hyperlipidemia inactive November 22, [...] inactive October 4:58pm Chronic kidney disease inactive [facility] 2024 4:58pm Coronary artery disease inactive J shannon 2024 4:58pm Diabetes mellitus inactive November 302024 4:58pm Dyslipidemia inactive November 30 025 4:58pm Essential hypertension inactive [facility] 2024 4:58pm Chronic kidney disease, stage [...] 03, 2024 2:01am Chronic kidney disease inactive [facility] 2024 2:01am CKD (chronic kidney disease) stage 4, GFR 15-29 ml/min inactive December 03, 2024 2:01am Coronary artery disease inactive [facility] 2024 2:01am Diabetes mellitus inactive December 03, 2024 2:01am Dyslipidemia inactive December 03, 2024 2:01am History of acute inferior wall [place] inactive December 03, 2024 2:01am Hyperlipidemia inactive December 2:01am Obesity inactive December 03 2:01am Obesity (BMI 30-39.9) inactive Dec 2024 2:01am Obstructive sleep apnea inactive [facility] 2024 2:01am DEAN (dyspnea on exertion) resolved December 07, 2024 4:24pm Chest pain inactive December 07 4:24pm Recent ST elevation myocardial infarction (STEMI) inactive December 07, 2024 4:24pm Shortness of breath inactive [facility] 2024 4:24pm Chest pain resolved December 12, 025 10:14am Bilateral lower extremity edema inactive December 12 10:14am Essential hypertension inactive [facility] 2024 10:14am Hyperlipidemia inactive December 10:14am Obesity inactive December 12, 2 025 10:14am Presence of stent in coronary artery Aug, 2022 inactive December 12 10:14am Shortness of breath inactive [facility] 2024 10:14am Type 2 diabetes mellitus without complications inactive December 10:14am Chronic kidney disease, stage 3 deleted December 12 10:14am Angina pectoris inactive December 152024 2:35pm Central sleep apnea inactive [facility] 2024 2:35pm Chest pain inactive [...] December 1:59am Obesity inactive December 24, 1:59am [employer] Work Phone: [phone]) 451-396705-21-2025 Evaluation note* Diagnosis Onset Date Resolution Status [...] 31 10:00am Diastolic heart failure inactive J shannon 2024 10:00am Obesity inactive October 31, 2024 [...] inactive ly 2024 4:58pm Chronic kidney disease, stage [...] 2024 2:01am Coronary artery disease inactive A [facility] 2024 2:01am Diabetes mellitus inactive December 03, 2024 2:01am Dyslipidemia inactive December 03, 2024 2:01am History of acute inferior wall [place] inactive December 03, 2024 2:01am Hyperlipidemia inactive December 2:01am Obesity inactive December 03 2:01am Obesity (BMI 30-39.9) inactive Dec 2:01am Obstructive sleep apnea inactive A [facility] 2024 2:01am DEAN (dyspnea on exertion) resolved December 07, 2024 4:24pm Chest pain inactive December 07 4:24pm Recent ST elevation myocardial infarction (STEMI) inactive December 07, 2024 4:24pm Shortness of breath inactive 2024 4:24pm Chest pain resolved December 12, 2 025 10:14am Bilateral lower extremity edema inactive December 12 10:14am Essential hypertension inactive [facility] 2024 10:14am Hyperlipidemia inactive December 10:14am Obesity inactive December 12, 2 025 10:14am Presence of stent in coronary artery Aug, 2022 inactive December 12 10:14am Shortness of breath inactive t 2024 10:14am Type 2 diabetes mellitus without complications inactive December 10:14am Chronic kidney disease, stage 3 deleted December 12 10:14am Angina pectoris inactive December 152024 2:35pm Central sleep apnea inactive [facility] t 2024 2:35pm Chest pain inactive December 15, 2 025 2:35pm CKD (chronic kidney disease) stage 4, GFR 15-29 ml/min inactive December 15, 2024 2:35pm Diastolic heart failure inactive A [facility] 2024 2:35pm Essential hypertension inactive [facility] 2024 2:35pm History of percutaneous transluminal coronary angioplasty August 18, 2018 inactive December 15 2:35pm Obstructive sleep apnea inactive A [facility] 2024 2:35pm Pericardial effusion inactive [facility] 2024 2:35pm Type 2 diabetes mellitus without complications inactive December 2:35pm Coronary artery disease acute A [facility] 2024 1:59am Diverticulosis acute December 1:59am GI (gastrointestinal bleed) acute December 24, 2024 1:59am BRBPR (bright red blood per rectum) inactive December 24 1:59am CHF (congestive heart failure) inactive December 24 1:59am COPD (chronic obstructive pulmonary disease) inactive December 24, 2024 1:59am Hyperlipidemia inactive December 1:59am Obesity inactive December 24, 025 1:59am [facility] Work Phone: 1(285) 902-272103-18-2025 Procedure notey [facility] Pulmonary Services/Neurology [address] [place] [address] MR#: [id number] Acct: [id number] Name: GERRY RICO Rep #:[id number] : 1945 78 From: Zen East DO Referring Dr: Marni Horn SHEET TURNER SHEET TURNER-C Status: REG CLI Location: PSN Date: Sex: M C PSN 6 Minute Walk Test 6 Minute Walk Test 6 Minute Walk Test: 6 Minute Walk Test PSN:6-Minute Walk Test Start: 07/18/24 06:38 Freq: Status: Active Protocol: RESP.6MINW Document 07/18/24 06:00 [facility] (Rec: 07/18/24 06:47 [facility] [id number]) 6 Minute Walk Test Date Performed 07/18/24 Time Performed 06:00 Height 5 ft 9 in Weight: 230 lb Weight in Pounds 230.[address]: Marni Horn SHEET TURNER Assistive device Cane used: Pre-test Oxygen Delivery [...] Date Dictated: 07/18/24 1032 Date Transcribed: 07/18/241031 Psychologist Chief: Dr. 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 October 25, 2024 7:54am Coronary artery disease chronic J 2024 7:54am Essential hypertension chronic Ju 2024 7:54am Hyperlipidemia chronic October 25, 2024 7:54am Obesity chronic October 25 7:54am Type 2 diabetes mellitus wit hout complications chronic October 25, 2024 7:54am Chest pain inactive October 25 7:54am [facility] Work Phone: 1([phone]) 564-836103-03-2025 Evaluation note* Diagnosis Onset Date Resolution Status [...] 25, 2024 7:54am 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 25, 2024 7:54am Chest pain chronic October 25 7:54am Chronic kidney disease, stage 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 October 25, 2024 7:54am Coronary artery disease chronic J une 2024 7:54am Essential hypertension chronic Ju ne 2024 7:54am Hyperlipidemia chronic October 25, 2024 7:54am Obesity chronic October 25 7:54am Type 2 diabetes mellitus wit hout complications chronic October 25, 2024 7:54am [facility] Work Phone: 1([phone]) 214-184703-03-2025 Evaluation note* Diagnosis Onset Date Resolution Status [...] 25, 2024 7:54am 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 25, 2024 7:54am Chest pain chronic October 25 7:54am Chronic kidney disease, stage 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 October 25, 2024 7:54am Coronary artery [...] Obstructive sleep apnea chronic J shannon2024 10:00am [facility] Work Phone: 1([phone]) 590-105103-03-2025 Evaluation note* Diagnosis Onset Date Resolution Status [...] 25, 2024 7:54am 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 25, 2024 7:54am Chest pain chronic October 25 7:54am Chronic kidney disease, stage 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 October 25, 2024 7:54am Coronary artery [...] Obstructive sleep apnea chronic J shannon2024 10:00am [facility] Work Phone: [phone] Evaluation note* Diagnosis Onset Date Resolution Status Admit Date DEAN (dyspnea on exertion) acute April 17, 2024 3:51pm 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 April 17, 2024 3:51pm Chronic kidney disease, stage 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 April 17, 2024 3:51pm Coronary artery [...] sleep apnea chronic M arch 2024 1:10pm [facility] Work Phone: 1(374) 542-686911-18-2024 Evaluation note* Diagnosis Onset Date Resolution Status Admit Date 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 March 20, 2024 10:31am Chronic kidney disease, stage 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 March 20, 2024 10:31am Coronary artery disease chronic N ovember 2023 10:31am Essential hypertension chronic No vember 2023 10:31am Hyperlipidemia chronic March 032023 10:31am Obesity chronic March 20, 2024 10:31am Type 2 diabetes mellitus without complications chronic March 032023 10:31am DEAN (dyspnea on exertion) acute April 17, 2024 3:51pm 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 Hay [facility] September 01, 2022 9:55am Note Date/Time September 01, 2022 8:37am [facility] Medical Records Department [address] [place] [address] Instructions for Home/Discharge Instructions 09/01/2235 MR#: [id number] Acct: [id number] Name: GERRY RICO Rep #:[id number] : 1945 77 From: Jose Hay MD PCP: Dr. Marycarmen Rodriguez, DO Status:ADM EDMUDN Discharge Instructions Diet Discharge Diet: Low fat [...] CC: Dr. Marycarmen Rodriguez DO ~ Signed [facility] Work Phone: 1(470) 740-327708-26-2021 Miscellaneous Notes* Assessment & Plan Note - [...] with any necessary intervention. documented in this [id number] History of Present illness Narrative* Eladio Ingram [...] patient is not nervous/anxious. documented in this [id number] Miscellaneous Notes* Assessment & Plan Note - Sagar Acuña CNP - 10/09/2020 11:44 AM EDT Associated Problem(s): Coronary artery disease involving nansemond indian tribe coronary artery of nansemond indian tribe heart without angina pectoris Multiple previous cardiac catheterizations with intervention. Most recent cardiac caths were performed in 2018, August 03 at [place], and August 18 at [facility] in [place]. 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 The notes from the cath at [facility] indicate that they were able to [...] intolerance, and chest pressure. documented in this [id number] History of Present illness Narrative* Sagar Acuña CNP - 10/09/2020 11:19 AM EDT [address] [id number] Assessment & Plan: Hypertension Blood pressure mildly [...] without CPAP use. Coronary artery disease involving nansemond indian tribe coronary artery of nansemond indian tribe heart without angina pectoris Multiple previous cardiac catheterizations with intervention. Most recent cardiac caths were performed in 2018, August 03 at [place], and August 18 at [facility] in [place]. 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 The notes from the cath at [facility] indicate that they were able to [...] re-establish care. He has been following at [place] and [facility] for his cardiology care over the past 4 years. 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 Gerry has long-standing coronary artery disease and his history is primarily obtained through records from [facility]. Gerry is uncertain of many of the dates related to multiple tests and interventions he has had in the past 3 years. Gerry states that he has noticed an increase in exercise intolerance over the past 3-4 weeks. 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 [employer] this weeks and became quite short of [...] Heart Cath,Stent, EF 60%; Eladio Ingram MD; [facility] CARDIAC CATHETERIZATION N/A 01/28/2015 Left Heart Cath, EF 60%; Eladio Ingram MD; [facility] CARDIAC CATHETERIZATION N/A 06/18/2015 Left Heart Cath, Right Upper Extremity Angiogram, EF 60%; Eladio Ingram MD; [facility] CARDIAC CATHETERIZATION N/A 03/17/2016 Procedure: Left and Right Heart Cath Poss Stent; Surgeon: Eladio Ingram MD; Location: [facility]; Service: CARDIAC CATHETERIZATION 03/22/2014 EF 60% CARDIAC CATHETERIZATION 06/29/2013 EF 60% CARDIAC CATHETERIZATION 09/08/2012 EF 55% CARDIAC CATHETERIZATION 03/22/2014 EF 60% CARDIAC CATHETERIZATION Right 10/15/2016 Procedure: Left Heart Cath Possible PTCA/Stent; Surgeon: Merritt Arthur MD; Location: [facility]; Service: CHOLECYSTECTOMY CORONARY ANGIOPLASTY WITH STENT [...] ectopy, no acute changes. 50 minutes spent [id number] with patient Follow Up Ordered: Return for [...] patient is not nervous/anxious. documented in this [id number] NotePatient Outreach (COVAMN) GERRY RICO ([id number]) 1945 M Date Time Provider Department 06/25/20 PETRONA TELLES During your visit today, we recorded the following information about you: Allergies As of Date: 06/25/2020 (No Known Allergies) Date Reviewed: 08/19/2018 Reviewed by: Moise (Marcin) MARCIN Mcgraw - Fully Assessed Order(s):SARS-COVID VACCINE 1ST DOSE APPT [64399DQS] Order #: [id number] FUTURE Prescriptions as of 06/25/2020 Sig: CLOPIDOGREL [...] (HCC) [N17.9] 08/15/2018 Coronary artery disease involving nansemond indian tribe smith*08/15/2018 Stented coronary artery [Z95.5] 08/15/2018 Letter Text Encounter Status:Closed by EPIC, PRODUSER on 06/28/20[facility] Consult note Author Jose Hay [facility] Note Date/Time November 30, 2024 4:51 pm [facility] Medical Records Department [address] [place] [address] Consultation - Cardiology 11/30/24 1642 MR#: [id number] Acct: [id number] Name: GERRY RICO Rep #:[id number] : [...] infarction. Subsequently a STEMI alert was called. 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 [facility] 01/21/17 10/11/23 History release maintenance [...] 80.9 H, Lymph % (Auto) 10.1 L, [place] % (Auto) 7.7, Eos % (Auto) 0.4, [...] 80.9 H, Lymph % (Auto) 10.1 L, [place] % (Auto) 7.7, Eos % (Auto) 0.4, [...] Hay MD; Dr. Marycarmen Rodriguez DO~ Signed [facility] Work Phone: Discharge summary Author Nickie Danielson [facility] Note Date/Time December 02, 2024 2:2 7pm [facility] Medical Records Department [address] [place] [address] Discharge Summary 12/02/24 1336 MR#: [id number] Acct: [id number] Name: GERRY RICO Rep #:[id number] : 1945 79 From: Nickie Danielson DO PCP: Dr. Marycarmen Rodriguez DO Status:ADM IN Location: [place] [id number] Providers Date of Admission: 11/30/24 Date [...] [facility] a STEMI [facility]. The [...] inferior wall. He was taken emergency to [facility] and cardiac catheterization revealed subacute stent [...] 78.9 H, Lymph % (Auto) 7.6 L, [place] % (Auto) 12.0 H, Eos % (Auto) [...] abnormality. 2. Age-related senescent changes. Reading Location: [id number] D/C Instructions Discharge Activity: Return to Normal [...] Jeffrey at discharge?: Yes Done w/ Acute WI measure.: Yes Documented LVEF (%): 50 Discharge Plan Admission Admit Date/Time: 11/30/24 16:59 Primary Reason for Your Visit: Chest pain Attending Provider: Nickie Danielson Primary Care Provider: Marycarmen Rodriguez Consulting Providers: Abraham Rildey; Elvis Olvera; Sangeeta Negro; Faye Kingsley; Petrona [...] Self Care Charges/Coding Visit Charges Inpatient E&M: 75241 Disch Hosp >30min 12/02/24 1427 <Electronically signed by Nickie Danielson DO> Cosigner Signature (if applicable): CC: Dr. Jose Hay MD; Dr. Nickie Danielson DO; Dr. Marycarmen Rodriguez DO~ Signed [facility] Work Phone: Discharge summary Author Alex Sanon [facility] Note Date/Time December 08, 2024 4:1 2pm [facility] Medical Records Department [address] [place] [address] Transfer to [facility] MR#: [id number] Acct: [id number] Name: GERRY RICO Rep #:[id number] : 1945 79 From: Alex Sanon MD PCP: Dr. Marycarmen Rodriguez DO Status:ADM EDMUND Certification of patient admission REQUIRED AT TIME OF ADMISSION. 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 [...] his ECF 2. Recent acute inferior wall WI ? This was complicated by PLV dissection [...] ? Patient was recently discharged to a usp facility plan is for patient to be [...] Uncertain Cause Additional Instructions / Restrictions: The seamer elastic band wanted to make sure you are taking [...] in before D/C Order can be placed): Long Term Facility 12/08/24 9358 <Electronically signed by Alex Sanon MD> Cosigner Signature (if applicable): CC: Dr. Shaan Santos DO; Dr. Marycarmen Rodriguez DO ~ [facility] Work Phone: Discharge summary Author Marycarmen Marlow [facility] Note Date/Time December 17, 2024 2: 06pm [facility] Medical Records Department [address] [place] [address] Transfer to [facility] MR#: [id number] Acct: [id number] Name: GERRY RICO Rep #:[id number] : 1945 79 From: Marycarmen Marlow DO PCP: Dr. Marycarmen Rodriguez DO Status:ADM IN Certification of patient admission REQUIRED AT TIME OF ADMISSION. I CERTIFY THAT POST-HOSPITAL ECF SERVICES ARE REQUIRED TO BE GIVEN ON AN IN-PATIENT BASIS BECAUSE OF THE ABOVE NAMED PATIENT'S NEED FOR SHELTER CARE ON A CONTINUING BASIS FOR THE [...] multiple medical problems-patient will return to his usp facility when medically stable #9 acute protein [...] [Primary Care Provider] - Gustabo Pérez NP, [employer] [Med Staff - Adv Practice Prof] - See Referral Note (In 3 to 4 weeks) Disposition Disposition (needs filled in before D/C Order can be placed): Long Term Facility (6) Diastolic heart failure Qualifiers: Heart failure chronicity: chronic Qualified Code(s): I50.32 - Chronic diastolic (congestive) heart failure 12/17/24 1406 <Electronically signed by Marycarmen Marlow DO> Cosigner Signature (if applicable): CC: Dr. Marycarmen Rodriguez DO; Dr. Ramonita Herron MD; Dr. Sunil Faye MD ~ [facility] Work Phone: Evaluation note* Diagnosis Shortness of breath- [facility] DEAN (dyspnea on exertion)- Primary Other dyspnea and respiratory abnormality [facility] Diagnosis DEAN (dyspnea on exertion) Other dyspnea and respiratory abnormality Essential hypertension Unspecified essential hypertension Type 2 diabetes mellitus without complication, without long-term current use of insulin (HCC) MATTHEW (obstructive sleep apnea) Obstructive sleep apnea (adult) (pediatric) Coronary artery disease involving nansemond indian tribe coronary artery of nansemond indian tribe heart without angina pectoris [facility]ness [facility] Diagnosis Essential hypertension- Primary Unspecified essential hypertension 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, unspecified whether nansemond indian tribe or transplanted heart (HCC) Mixed hyperlipidemia [facility] Diagnosis Chest pain, unspecified type- Primary [facility] Diagnosis 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 (HCC)- Primary [facility]* Diagnosis Onset Date Resolution Status Dizziness acute Atherosclerotic heart diseas e nansemond indian tribe coronary artery w/angina pectoris chronic CHF (congestive heart failure) chronic Essential hypertension chron ic History of coronary artery stent placement August 13, 2017 chronic Hyperlipidemia [facility] Work Phone: evaluation note* Diagnosis Onset Date Resolution Status Dizziness acute Atherosclerotic heart diseas e nansemond indian tribe coronary artery w/angina pectoris chronic CHF (congestive heart failure) chronic Essential hypertension chron ic History of coronary artery stent placement August 13, 2017 chronic Hyperlipidemia chronic Dizziness acute DEAN (dyspnea on exertion) ac [place] Palpitations acute CAD (coronary artery disease) chronic CHF (congestive heart failure) chronic Essential hypertension chron ic Hyperlipidemia [facility] Work Phone: Evaluation note* Diagnosis Onset Date Resolution Status Dizziness acute Atherosclerotic heart diseas e nansemond indian tribe coronary artery w/angina pectoris chronic CHF (congestive heart failure) chronic Essential hypertension chron ic History of coronary artery stent placement August 13, 2017 chronic Hyperlipidemia chronic Dizziness acute DEAN (dyspnea on exertion) ac [place] Palpitations acute CAD (coronary artery disease) chronic CHF (congestive heart failure) chronic Essential hypertension chron ic Hyperlipidemia chronic DEAN (dyspnea on exertion) [place] CAD (coronary artery disease) chronic CHF (congestive heart failure) chronic Essential hypertension chron ic Hyperlipidemia [facility] Work Phone: Evaluation note* Diagnosis Onset Date Resolution Status Dizziness acute DEAN (dyspnea on exertion) ac [place] Palpitations acute CAD (coronary artery disease) chronic CHF (congestive heart failure) chronic Essential hypertension chron ic Hyperlipidemia chronic DEAN (dyspnea on exertion) ac [place] CAD (coronary artery disease) chronic CHF (congestive heart failure) chronic Essential hypertension chron ic Hyperlipidemia [facility] Work Phone: Evaluation note* Diagnosis Onset Date Resolution Status Abnormal PFT acute 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.9) 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 sleep apnea 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 COVID-19 acute DEAN (dyspnea on exertion) ac [place] Atherosclerotic heart diseas e nansemond indian tribe coronary artery w/angina pectoris chronic CHF (congestive heart failure) chronic Essential hypertension chron ic History of coronary artery stent placement August 13, 2017 chronic Hyperlipidemia chronic Abnormal PFT acute COVID-19 acute 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.9) 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 sleep apnea 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 [facility] Work Phone: Evaluation note* Diagnosis Onset Date Resolution Status COVID-19 acute DEAN (dyspnea on exertion) ac [place] Atherosclerotic heart diseas e nansemond indian tribe coronary artery w/angina pectoris chronic CHF (congestive heart failure) chronic Essential hypertension chron ic History of coronary artery stent placement August 13, 2017 chronic Hyperlipidemia chronic Abnormal PFT acute COVID-19 acute 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.9) 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 sleep apnea 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 abylee [facility] Work Phone: Evaluation note* Diagnosis Onset Date Resolution Status Angina pectoris chronic Chronic kidney disease chron ic Coronary artery disease 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 Diabetes mellitus chronic Dyslipidemia chronic Essential hypertension chron ic Obesity chronic [facility] Work Phone: Evaluation note* Diagnosis Onset Date Resolution Status Angina pectoris chronic Chronic kidney disease chron ic Coronary artery disease 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 Diabetes mellitus chronic Dyslipidemia chronic Essential hypertension chron ic Obesity chronic Left-sided weakness acute Chest pain resolved Fatigue acute Syncope acute Coronary artery disease 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 Dyslipidemia chronic Essential hypertension chron ic [facility] Work Phone: Evaluation note* Diagnosis Onset Date Resolution Status Left-sided weakness acute Chest pain resolved Fatigue acute Syncope acute Coronary artery disease 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 Dyslipidemia chronic Essential hypertension chron ic Angina pectoris chronic Bilateral lower extremity edema chronic Chronic kidney disease, stage 3 chronic Coronary artery disease 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 Essential hypertension chron ic Hyperlipidemia chronic Type 2 diabetes mellitus without complications [facility] Work Phone: Evaluation noteNo assessment information available [facility] Work Phone: History and physical note Author Shaan Santos [facility] Note Date/Time December 07, 2024 4:4 8pm [facility] [address] [place] [address] H&P Exam - Hospitalist 12/07/24 1633 MR#: [id number] Acct: [id number] Name: GERRY RICO Rep #:[id number] : 1945 79 From: Shaan Santos DO PCP: Dr. Marycarmen Rodriguez, DO Status:ADM EDMUND Location: [place] [address] HPI - [facility] General Date of Service: 12/07/24 HPI Narrative [...] currently on room air and breathing comfortably. 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 Not a candidate for JOSLEO inhibitor/angiotensin receptor jeffrey given CKD. DM2: Continue with sliding scale insulin. Depression: Continue with fluoxetine Insomnia: Continue with Remeron VTE prophylaxis: Low risk given current observation status. CODE STATUS: Verified with the patient. Patient wishes to be full code Case discussed with the patient's daughter at bedside. Charges/Coding Visit Charges Inpatient E&M: 59717 Init Hosp L3 12/07/24 1648 <Electronically signed by Shaan Santos DO> Cosigner Signature (if applicable): CC: Dr. Shaan Santos, ; Dr. Marycarmen Rodriguez DO~ Signed [facility] Work Phone: Hospital course Narrative No data available for this section [facility] Hospital Discharge instructionsAmbulatory Orders* Phase II, Outpatient Cardiac Rehab Location: None Selected [facility] Work Phone: Hospital Discharge instructionsAdditional Instructions The seamer elastic band wanted to make sure you are taking isosorbide, spironolactone, Lasix and Jardiance. Follow-up with the cardiology office.[facility] Work Phone: Progress note Author Dr. Hay [facility] September 01, 2022 9:53am Note Date/Time September 01, 2022 9:51am [facility] Medical Records Department [address] [place] [address] Progress Note 09/01/22 0950 MR#: [id number] Acct: [id number] Name: GERRY RICO Rep #:[id number] : 1945 77 From: Jose Hay MD PCP: Dr. Marycarmen Rodriguez, DO Status:ADM EDMUND Location: [place] [address] Progress Note Reports complete resolution of angina. Denies any complaints today. Right groin stable. No hematoma or bruit. Right radial pulse 2+. Mildly decreased platelet count noted. Repeat CBC in 2 days. Also repeat complete metabolic panel in 2 days. Discharge home. Follow-up as outpatient. 09/01/22 0953 <Electronically signed by Jose Hay MD> Jose Hay MD Cosigner Signature (if applicable): CC: ~ Signed [facility] Work Phone: Reason for referral (narrative)No reason for referral information [facility] Work Phone: Assessments Diagnosis MATTHEW (obstructive sleep apnea ) - Primary Obstructive sleep apnea (adult) (pediatric) Coronary artery disease invo lving nansemond indian tribe coronary artery of nansemond indian tribe heart without angina pectoris Summary Purpose Family [...] Relationship Condition Age at Onset Recorded Date/T tatila father Parkinson's disease Unknown Malignant neoplasm of prostate Unknown mother Osteoporosis Unknown Advance Directives No Advanced Directives Records FoundDocuments on File Type Date Recorded Patient Seamer Elastic Band Expl anation Advance Directives and Living Will [...] Documents on File Type Date Recorded Patient Seamer Elastic Band Expl anation Advance Directives and Livin g Will 10/04/2020 12:00 AM Documents on File Type Date Recorded Patient Seamer Elastic Band Expl anation Advance Directives and Living Will [...] Documents on File Type Date Recorded Patient Seamer Elastic Band Expl anation Advance Directives and Livin g Will 10/15/2020 12:46 PM Documents on File Type Date Recorded Patient Seamer Elastic Band Expl anation Advance Directives and Livin g Will 10/15/2020 12:46 PM Documents on File Type Date Recorded Patient Seamer Elastic Band Expl anation Advance Directives and Livin g [...] Will Yes June 10 4:44pm Power of Long Winder Tender Yes June 10, 2021 4:44pm Advance Directive Response Recorded Date/ Time Name of Medical Power of Long Winder Tender Jennie- November 16, 2021 1:06pm Advance Directives No August 13 018 7:02am Living Will Yes November 16, 2021 1:06pm Power of Long Winder Tender Yes November 16 1:06pm Advance Directive Response Recorded Date/ Time Advance Directives No August 13, 2 018 6:02am Living Will Yes November 16, 2021 12:06pm Power of Long Winder Tender Yes November 16 12:06pm Advance Directive Response Recorded Date/ Time Advance Directives No August 13 018 7:02am Living Will Yes November 16, 2021 1:06pm Power of Long Winder Tender Yes November 16 1:06pm Advance Directive Response Recorded Date/ Time Advance Directives on File Yes August 312022 7:47am Name of Medical Power of Long Winder Tender Ashok escalera August 31, 2022 7:47am Advance Directives Yes August 31, 2022 7:47am Living Will Yes August 31, 2022 7: 47am Power of Long Winder Tender Yes August 31, 2022 7:47am Advance Directive Response Recorded Date/ Time Advance Directives on File Yes August 312022 7:47am Name of Medical Power of Long Winder Tender Ashok escalera August 31, 2022 7:47am Advance Directives Yes August 31, 2022 7:47am Living Will No September 18, 2022 1 2:11am Power of Long Winder Tender No September 18, 2022 12:11am Advance Directive Response Recorded Date/ Time Advance Directives on File Yes August 312022 7:47am Name of Medical Power of Long Winder Tender Ashok escalera August 31, 2022 7:47am Advance Directives on File No Augus t 2022 7:51am Name of Medical Power of Long Winder Tender ASHOK RICO December 21, 2022 7:51am Advance Directives Yes December 21, 2022 7:51am Living Will Yes December 21 7:51am Power of Long Winder Tender Yes December 21 023 7:51am Advance Directive Response Recorded Date/ Time Advance Directives on File No Augus t 2022 7:51am Name of Medical Power of Long Winder Tender ASHOK RICO December 21, 2022 7:51am Advance Directives Yes December 21, 2022 7:51am Living Will Yes December 21 7:51am Power of Long Winder Tender Yes December 21 023 7:51am Advance Directive Response Recorded Date/ Time Advance Directives Yes December 21, 2022 6:51am Living Will Yes December 21 6:51am Power of Long Winder Tender Yes [place] 21st, 2 023 6:51am Advance Directive Response Recorded Date/ Time Living Will No October 12, 2023 6:54pm Power of Long Winder Tender No October 11 6:54pm Advance Directives Yes December 21, 2022 7:51am Advance Directive Response Recorded Date/ Time Advance Directives Yes December 21, 2022 7:51am Advance Directive Response Recorded Date/ Time Do you have a Healthcare Power of Long Winder Tender? Yes November 26, 2024 5:44pm Advance Directives Yes December 21, 2022 7:51am Advance Directive Response Recorded Date/ Time Advance Directives on File Yes November 27, 2024 8:44am Living Will Yes November 27, 2024 8:44am Do you have a Healthcare Pow er of Long Winder Tender? Yes November 27, 2024 8:44am Name of Medical Power of Long Winder Tender Jennie Popeag er- spouse November 27, 2024 8:44am Advance Directives Yes November 27 8:44am Do you have a Healthcare Pow er of Long Winder Tender? Yes November 26, 2024 5:44pm Advance Directive Response Recorded Date/ Time Advance Directives on File Yes November 27, 2024 8:44am Living Will Yes November 27, 2024 8:44am Do you have a Healthcare Pow er of Long Winder Tender? Yes November 27, 2024 8:44am Name of Medical Power of Long Winder Tender Jennie Popeag er- spouse November 27, 2024 8:44am Advance Directives Yes November 27 8:44am Do you have a Healthcare Pow er of Long Winder Tender? Yes November 26, 2024 5:44pm Do you have a Healthcare Pow er of Long Winder Tender? Yes November 30, 2024 5:22pm Advance Directive Response Recorded Date/ Time Advance Directives on File Yes November 27, 2024 8:44am Living Will Yes November 27, 2024 8:44am Do you have a Healthcare Pow er of Long Winder Tender? Yes November 27, 2024 8:44am Name of Medical Power of Long Winder Tender Jennie Popeag er- spouse November 27, 2024 8:44am Advance Directives Yes November 27 8:44am Do you have a Healthcare Pow er of Long Winder Tender? Yes November 26, 2024 5:44pm Do you have a Healthcare Pow er of Long Winder Tender? Yes November 30, 2024 5:22pm Do you have a Healthcare Pow er of Long Winder Tender? Yes December 02, 2024 8:23pm Advance Directive Response Recorded Date/ Time Advance Directives on File Yes November 27, 2024 8:44am Living Will Yes November 27, 2024 8:44am Do you have a Healthcare Pow er of Long Winder Tender? Yes November 27, 2024 8:44am Name of Medical Power of Long Winder Tender Jennie Popeag er- spouse November 27, 2024 8:44am Advance Directives Yes November 27 8:44am Do you have a Healthcare Pow er of Long Winder Tender? Yes November 26, 2024 5:44pm Do you have a Healthcare Pow er of Long Winder Tender? Yes November 30, 2024 5:22pm Do you have a Healthcare Pow er of Long Winder Tender? Yes December 02, 2024 9:54pm Advance Directive Response Recorded Date/ Time Advance Directives on File Yes November 27, 2024 8:44am Living Will Yes November 27, 2024 8:44am Do you have a Healthcare Pow er of Long Winder Tender? Yes November 27, 2024 8:44am Name of Medical Power of Long Winder Tender Jennie Agarwal er- spouse November 27, 2024 8:44am Advance Directives Yes November 27 8:44am Do you have a Healthcare Pow er of Long Winder Tender? Yes November 26, 2024 5:44pm Do you have a Healthcare Pow er of Long Winder Tender? Yes November 30, 2024 5:22pm Do you have a Healthcare Pow er of Long Winder Tender? Yes December 02, 2024 9:54pm Do you have a Healthcare Pow er of Long Winder Tender? Yes December 07, 2024 11:09am Advance Directive Response Recorded Date/ Time Advance Directives on File Yes November 27, 2024 8:44am Living Will Yes November 27, 2024 8:44am Do you have a Healthcare Pow er of Long Winder Tender? Yes November 27, 2024 8:44am Name of Medical Power of Long Winder Tender Jennie Popeag er- spouse November 27, 2024 8:44am Advance Directives Yes November 27 8:44am Do you have a Healthcare Pow er of Long Winder Tender? Yes November 26, 2024 5:44pm Do you have a Healthcare Pow er of Long Winder Tender? Yes November 30, 2024 5:22pm Do you have a Healthcare Pow er of Long Winder Tender? Yes December 02, 2024 9:54pm Do you have a Healthcare Pow er of Long Winder Tender? Yes December 07, 2024 5:33pm Advance Directive Response Recorded Date/ Time Advance Directives on File Yes November 27, 2024 8:44am Living Will Yes November 27, 2024 8:44am Do you have a Healthcare Pow er of Long Winder Tender? Yes November 27, 2024 8:44am Name of Medical Power of Long Winder Tender Jennie Popeag er- spouse November 27, 2024 8:44am Advance Directives Yes November 27 8:44am Do you have a Healthcare Pow er of Long Winder Tender? Yes December 15, 2024 3:01pm Do you have a Healthcare Pow er of Long Winder Tender? Yes November 26, 2024 5:44pm Do you have a Healthcare Pow er of Long Winder Tender? Yes November 30, 2024 5:22pm Do you have a Healthcare Pow er of Long Winder Tender? Yes December 02, 2024 9:54pm Do you have a Healthcare Pow er of Long Winder Tender? Yes December 07, 2024 5:33pm Advance Directive Response Recorded Date/ Time Advance Directives on File Yes November 27, 2024 8:44am Living Will Yes November 27, 2024 8:44am Do you have a Healthcare Pow er of Long Winder Tender? Yes November 27, 2024 8:44am Name of Medical Power of Long Winder Tender Jennie Popeag er- spouse November 27, 2024 8:44am Advance Directives Yes November 27 8:44am Do you have a Healthcare Pow er of Long Winder Tender? Yes December 15, 2024 3:01pm Do you have a Healthcare Pow er of Long Winder Tender? Yes December 20, 2024 11:46am Do you have a Healthcare Pow er of Long Winder Tender? Yes November 26, 2024 5:44pm Do you have a Healthcare Pow er of Long Winder Tender? Yes November 30, 2024 5:22pm Do you have a Healthcare Pow er of Long Winder Tender? Yes December 02, 2024 9:54pm Do you have a Healthcare Pow er of Long Winder Tender? Yes December 07, 2024 5:33pm Do you have a Healthcare Pow er of Long Winder Tender? Yes December 24, 2024 2:54am Advance Directive Response Recorded Date/ Time Advance Directives on File Yes November 27, 2024 8:44am Living Will Yes November 27, 2024 8:44am Do you have a Healthcare Pow er of Long Winder Tender? Yes November 27, 2024 8:44am Name of Medical Power of Long Winder Tender Jennie Agarwal er- spouse November 27, 2024 8:44am Advance Directives Yes November 27 8:44am Do you have a Healthcare Pow er of Long Winder Tender? Yes December 15, 2024 3:01pm Do you have a Healthcare Pow er of Long Winder Tender? Yes December 20, 2024 11:46am Do you have a Healthcare Pow er of Long Winder Tender? Yes November 26, 2024 5:44pm Do you have a Healthcare Pow er of Long Winder Tender? Yes November 30, 2024 5:22pm Do you have a Healthcare Pow er of Long Winder Tender? Yes December 02, 2024 9:54pm Do you have a Healthcare Pow er of Long Winder Tender? Yes December 07, 2024 5:33pm Do you have a Healthcare Pow er of Long Winder Tender? Yes December 24, 2024 2:54am Do you have a Healthcare Pow er of Long Winder Tender? No January 01, 2025 8:56am Reason for Referral Status Reason Specialty Diagnoses / Procedures Referred By Contact Referred To Contact New Request Cardiology Diagnoses Shortness of breath Procedures Echocardiogram complete Eladio Ingram MD [address] [place] [address] Status Reason Specialty Diagnoses / Procedures Referred By Contact Referred To Contact Closed Cardiology Diagnoses DEAN (dyspnea on exertion) Procedures ECG 12 lead Sagar Acuña, HEALTH INFORMATION MANAGEMENT DIRECTOR [address] [place] [address] Specialty Diagnoses / Procedures Referred By Contac t Referred To Contact Radiology Diagnoses 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 (HCC) Procedures CT Angiogram Aorta Chest Abdomen Pelvis Davakis, Eladio Seymour, MD [address] [place] [id number] Referral ID Status Reason Start Date Expiration Date V isits Requested Visits Authorized [id number] New Request 01/10/2021 01/10/2022 1 1 Chief Complaint and Reason for Visit Chief Complaint R. LOWER LID LESION RLQ ABD PAIN bleeding from ear, chest pain OVERDUE FOR OV CHEST PAIN CHEST PAIN Reason for Visit Dizziness Atherosclerotic heart disease [place] coronary artery w/angina pectoris CHF (congestive heart failure) Essential hypertension History of coronary artery stent placement Hyperlipidemia Chief Complaint bleeding from ear, c hest pain OVERDUE FOR OV CHEST PAIN CHEST PAIN 6-8 WK F/U DYSPNEA Reason for Visit Dizziness Atherosclerotic heart disease [place] coronary artery w/angina pectoris CHF (congestive heart failure) Essential hypertension History of coronary artery stent placement Hyperlipidemia Dizziness DEAN (dyspnea on exertion) Palpitations CAD (coronary artery disease) CHF (congestive heart failure) Essential hypertension Hyperlipidemia Chief Complaint OVERDUE FOR OV CHEST PAIN CHEST PAIN 6-8 WK F/U DYSPNEA Reason for Visit Dizziness Atherosclerotic heart disease [place] coronary artery w/angina pectoris CHF (congestive heart failure) Essential hypertension History of coronary artery stent placement Hyperlipidemia Dizziness DEAN (dyspnea on exertion) Palpitations CAD (coronary artery disease) CHF (congestive heart failure) Essential hypertension Hyperlipidemia Chief Complaint OVERDUE FOR OV CHEST PAIN CHEST PAIN 6-8 WK F/U DYSPNEA CHEST PAIN 2 M FU E ORDERS Reason for Visit Dizziness Atherosclerotic heart disease [place] coronary artery w/angina pectoris CHF (congestive heart [...] DEAN (dyspnea on exertion) Atherosclerotic heart disease [place] coronary artery w/angina pectoris CHF (congestive heart failure) Essential hypertension History of coronary artery stent placement Hyperlipidemia Abnormal PFT COVID-19 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.9) Obstructive sleep apnea Chief Complaint SORE THROAT, COUGH, FEVER, BODY ACHE 5 MO F/U 3 M FU DYSPNEA/SOB Reason for Visit COVID-19 DEAN (dyspnea on exertion) Atherosclerotic heart disease [place] coronary artery w/angina pectoris CHF (congestive heart [...] CP CVA, CP CVA, CP request by SHEET TURNER at [facility] for angina L.L. E-ORDER SYNCOPE Reason for Visit Angina pectoris Chronic kidney disease Coronary artery disease Diabetes mellitus Dyslipidemia Essential hypertension Obesity Left-sided weakness Chest pain Fatigue Syncope Coronary artery disease Dyslipidemia Essential hypertension Chief Complaint CAD Amb Documentation EKG Coronary artery disease Amb Documentation CVA, CP CVA, CP CP ADMIT CVA, CP CVA, CP CVA, CP CVA, CP request by SHEET TURNER at [facility] for angina L.L. E-ORDER SYNCOPE 2 M [...] CP CVA, CP CVA, CP request by SHEET TURNER at [facility] for angina L.L. E-ORDER SYNCOPE 2 M [...] FU April 17, 2024 3:51pm F/U per [facility] July 03, 2024 1:10 pm MATTHEW, 42 [...] FU April 17, 2024 3:51pm F/U per [facility] July 03, 2024 1:10 pm MATTHEW, 42 [...] 03 2:01am History of acute inferior wall [place] December 03, 2024 2:01am Hyponatremia December 03, [...] 03 2:01am History of acute inferior wall [place] December 03, 2024 2:01am Hyponatremia December 03, [...] 03 2:01am History of acute inferior wall [place] December 03, 2024 2:01am Hyponatremia December 03, [...] 2:0 1am History of acute inferior wall [place] December 03, 2024 2:01am DEAN (dyspnea on exertion) December 07 4:24pm Shortness of breath December 07, 2024 4:2 4pm Chest pain December 07, 2024 4:[address] elevation myocardial infarctio n (STEMI) [place] 7th, 2025 4:24pm Presence of stent in coronary artery [...] 2:0 1am History of acute inferior wall [place] December 03, 2024 2:01am Shortness of breath [...] 2:0 1am History of acute inferior wall [place] December 03, 2024 2:01am Hyperlipidemia December 03, [...] 2:0 1am History of acute inferior wall [place] December 03, 2024 2:01am Hyperlipidemia December 03, [...] December 15, 2024 2:35pm Coronary artery disease [place] 24th, 202 5 1:59am Diverticulosis December 24, 2024 1: 59am [...] and content) DATE CREATED AUTHOR 09/24/2018 [facility] DATE CREATED AUTHOR AUTHOR'S ORGANIZ ATION 12/20/[address] [facility] DATE CREATED AUTHOR AUTHOR'S ORGANIZ ATION 01/11/2021 [facility] DATE CREATED AUTHOR AUTHOR'S ORGANIZ ATION 02/28/2021 [facility] DATE CREATED AUTHOR AUTHOR'S ORGANIZ ATION 04/20/2021 [facility] DATE CREATED AUTHOR AUTHOR'S ORGANIZ ATION 06/22/2021 [facility] DATE CREATED AUTHOR AUTHOR'S ORGANIZ ATION 01/15/2025 [facility] DATE CREATED AUTHOR AUTHOR'S ORGANIZ ATION 02/18/2025 [facility] Reason for Visit (unrecogniz ed section and content) Reason Comments Chest Pain SOB Status Reason Specialty Diagnoses / Procedures Referred By Contact Referred To Contact Closed Cardiology Diagnoses DEAN (dyspnea on exertion) Procedures ECG 12 lead Sagar Acuña, HEALTH INFORMATION MANAGEMENT DIRECTOR [address] [place] [address] Status Reason Specialty Diagnoses / Procedures Referre d By Contact Referred To Contact Closed Cardiology Diagnoses Shortness of breath Procedures Echocardiogram complete w contrast Echocardiogram complete Eladio Ingram MD [address] [facility] [address] [place] [address] Reason Comments Initial Visit (Intake) Specialty Diagnoses / Procedures Referred By Contac t Referred To Contact Cardiology Diagnoses 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, unspecified whether [place] or transplanted heart (HCC) Marycarmen Rodriguez DO [address] [facility] [place] [address] Referral ID Status Reason Start Date Expiration Date V isits Requested Visits Authorized [id number] Closed Specialty Services Required/Krupa ent's Best Interest 10/04/2020 10/04/2021 1 1 Care Teams (unrecognized sec tion and content) Biodiesel Processing Technician Relationship Specialty Start Date End Date Marycarmen Rodriguez DO [address] [facility] [place], [place] [phone] PCP - General Family Medicine 12/17/16 Biodiesel Processing Technician Relationship Specialty Start Date End Date Marycarmen Rodriguez DO [address] [facility] [place] [address] PCP - General Family Medicine 12/17/16 Biodiesel Processing Technician Relationship Specialty Start Date End Date Marycarmen Rodriguez DO [address] [facility] [place], [place] [phone] PCP - General Family Medicine 12/17/16 Biodiesel Processing Technician Relationship Specialty Start Date End Date Marycarmen Rodriguez DO [address] [facility] [place], [place] [phone] PCP - General Family Medicine 12/17/16 Team Status: Active Member Role Status Dates Dr. Marycarmen Rodriguez DO Family Provider Active Marycarmen Rodriguez Primary Care Provider Active Team Status: Inactive Member Role Status Dates Dr. Marycarmen Rodriguez DO Primary Care Provider, Referrin g Provider Active Luz Elena Mckeon SHEET TURNER, SHEET TURNER-C Attending Provider Active Team Status: Inactive Member Role Status Dates Dr. Marycarmen Rodriguez DO Primary Care Provider Active Dr. Merritt Persaud MD Attending Provider, Referring Arcenio batista Active Team Status: Inactive Member Role Status [...] Primary Care Provider Active Luz Elena Mckeon SHEET TURNER, SHEET TURNER-C Attending Provider Active Team Status: Inactive Member Role Status Dates Dr. Marycarmen Rodriguez DO Primary Care Provider Active Luz Elena Mckeon SHEET TURNER, SHEET TURNER-C Attending Provider, Referring P sharon Active Team [...] Care Provider Active Dr. Pardeep Hall , Emergency Provider Active Dr. Alka Leo MD [...] Primary Care Provider Active Luz Elena Mckeon SHEET TURNER, SHEET TURNER-C Attending Provider, Referring P rovider Active Team [...] Rodriguez DO Primary Care Provider Active Dr. Jsoe Hay MD Attending Provider Active Team Status: Active Member Role Status Dates Dr. Marycarmen Rodriguez DO Primary Care Provider Active Luz Elena Mckeon SHEET TURNER, SHEET TURNER-C Attending Provider Active Team Status: Inactive Member [...] 2024 End: April 17, 2024 Gustabo Pérez SHEET TURNER, SHEET TURNER-C Attending Provider Active S tart: April 17, 2024 End: April 17, 2024 Team Status: Inactive Member Role Status Dates Dr. Marycarmen Rodriguez DO Primary Care Provider Active Start: April 17, 2024 End: April 17, 2024 Gustabo Pérez SHEET TURNER, SHEET TURNER-C Attending Provider Active S tart: April 17, 2024 End: April 17, 2024 Gustabo Pérez SHEET TURNER, SHEET TURNER-C Referring Provider Active S tart: April 17, [...] 2024 End: July 03, 2024 Marni Horn SHEET TURNER, SHEET TURNER-C Attending Provider Active Start: July 03, 2024 End: July 03, 2024 Team Status: Active Member Role Status Dates Dr. Marycarmen Rodriguez DO Primary Care Provider Active Start: July 07, 2024 Marni Horn SHEET TURNER, SHEET TURNER-C Attending Provider Active Start: July 07, 2024 Marni Horn SHEET TURNER, SHEET TURNER-C Referring Provider Active Start: July 07, 2024 Team Status: Inactive Member Role Status Dates Dr. Marycarmen Rodriguez DO Primary Care Provider Active Start: July 07, 2024 End: July 07, 2024 Marni Horn SHEET TURNER, SHEET TURNER-C Attending Provider Active Start: July 07, 2024 End: July 07, 2024 Marni Horn SHEET TURNER, SHEET TURNER-C Referring Provider Active Start: July 07, 2024 End: July 07, 2024 Team Status: Active Member Role Status Dates Dr. Marycarmen Rodriguez DO Primary Care Provider Active Start: July 17, 2024 Marni Horn SHEET TURNER, SHEET TURNER-C Attending Provider Active Start: July 17, 2024 Marni Horn SHEET TURNER, SHEET TURNER-C Referring Provider Active Start: July 17, 2024 Team Status: Active Member Role Status Dates Dr. Marycarmen Rodriguez DO Primary Care Provider Active Start: July 18, 2024 Marni Horn SHEET TURNER, SHEET TURNER-C Attending Provider Active Start: July 18, 2024 Marni Horn SHEET TURNER, SHEET TURNER-C Referring Provider Active Start: July 18, 2024 Team Status: Active Member Role Status Dates Dr. Marycarmen Rodriguez DO Primary Care Provider Active Start: July 18, 2024 Marni Horn SHEET TURNER, SHEET TURNER-C Referring Provider Active Start: July 18, 2024 Marni Horn SHEET TURNER, SHEET TURNER-C Other Provider Active Start: July 18, 2024 Dr. Zen East DO Attending Provider Active S tart: July 18, 2024 Team Status: Inactive Member Role Status Dates Dr. Marycarmen Rodriguez DO Primary Care Provider Active Start: July 17, 2024 End: July 17, 2024 Marni Horn SHEET TURNER, SHEET TURNER-C Attending Provider Active Start: July 17, 2024 End: July 17, 2024 Marni Horn SHEET TURNER, SHEET TURNER-C Referring Provider Active Start: July 17, 2024 End: July 17, 2024 Team Status: Inactive Member Role Status Dates Dr. Marycarmen Rodriguez DO Primary Care Provider Active Start: July 18, 2024 End: July 18, 2024 Marni Horn SHEET TURNER, SHEET TURNER-C Attending Provider Active Start: July 18, 2024 End: July 18, 2024 Marni Horn SHEET TURNER, SHEET TURNER-C Referring Provider Active Start: July 18, 2024 End: July 18, 2024 Team Status: Inactive Member Role Status Dates Dr. Marycarmen Rodriguez DO Primary Care Provider Active Start: August 03, 2024 End: August 03, 2024 Marni Horn SHEET TURNER, SHEET TURNER-C Attending Provider Active Start: August 03, 2024 End: August 03, 2024 Marni Horn SHEET TURNER, SHEET TURNER-C Referring Provider Active Start: August 03, 2024 End: August 03, 2024 Team Status: Inactive Member Role Status Dates Dr. Marycarmen Rodriguez DO Primary Care Provider Active Start: September 20, 2024 End: September 20, 2024 Dr. Marycarmen Rodriguez DO Referring Provider Active Start: September 20, 2024 End: September 20, 2024 Maren Olivas SHEET TURNER-C Attending Provider Active Start: September 20, 2024 End: September 20, 2024 Team Status: Inactive Member Role Status Dates Dr. Marycarmen Rodriguez DO Primary Care Provider Active Start: September 20, 2024 End: September 20, 2024 Maren Olivas SHEET TURNER-C Attending Provider Active Start: September 20, 2024 End: September 20, 2024 Maren Olivas SHEET TURNER-C Referring Provider Active Start: September 20, 2024 End: September 20, 2024 Team Status: Active Member Role Status Dates Dr. Marycarmen Rodriguez DO Primary Care Provider Active Start: September 22, 2024 Marni Horn SHEET TURNER, SHEET TURNER-C Attending Provider Active Start: September 22, 2024 Team Status: Inactive Member Role Status Dates Dr. Marycarmen Rodriguez DO Primary Care Provider Active Start: September 22, 2024 End: September 22, 2024 Marni Horn SHEET TURNER, SHEET TURNER-C Attending Provider Active Start: September 22, 2024 [...] S tart: July 17, 2024 Marni Horn SHEET TURNER, SHEET TURNER-C Referring Provider Active Start: July 17, 2024 Team Status: Inactive Member Role Status Dates Dr. Marycarmen Rodriguez DO Primary Care Provider Active Start: October 18, 2024 End: October 18, 2024 Dr. Brooks Carpenter MD Attending Provider Active Start: October 18, 2024 End: October 18, 2024 Dr. Brooks Carpenter MD Referring Provider Active Start: October 18, 2024 End: October 18, 2024 Gustabo Pérez SHEET TURNER, SHEET TURNER-C Other Provider Active Start : October 18, 2024 End: October 18, 2024 Team Status: Active Member Role Status Dates Dr. Marycarmen Rodriguez DO Primary Care Provider Active Start: October 18, 2024 Marni Horn SHEET TURNER, SHEET TURNER-C Attending Provider Active Start: October 18, 2024 Team Status: Inactive Member Role Status Dates Dr. Marycarmen Rodriguez DO Primary Care Provider Active Start: October 25, 2024 End: October 25, 2024 Dr. Marycarmen Rodriguez DO Referring Provider Active Start: October 25, 2024 End: October 25, 2024 Gustabo Pérez SHEET TURNER, SHEET TURNER-C Attending Provider Active S tart: October 25, 2024 End: October 25, 2024 Team Status: Inactive Member Role Status Dates Dr. Marycarmen Rodriguez DO Primary Care Provider Active Start: October 18, 2024 End: October 18, 2024 Marni Horn SHEET TURNER, SHEET TURNER-C Attending Provider Active Start: October 18, 2024 [...] 2024 End: July 03, 2024 Marni Horn SHEET TURNER, SHEET TURNER-C Attending Provider Active Start: July 03, 2024 End: July 03, 2024 Team Status: Inactive Member Role/Relationship Status Dates Dr. Marycarmen Rodriguez DO Primary Care Provider Active Start: July 07, 2024 End: July 07, 2024 Marni Horn SHEET TURNER, SHEET TURNER-C Attending Provider Active Start: July 07, 2024 End: July 07, 2024 Marni Horn SHEET TURNER, SHEET TURNER-C Referring Provider Active Start: July 07, 2024 End: July 07, 2024 Team Status: Inactive Member Role/Relationship Status Dates Dr. Marycarmen Rodriguez DO Primary Care Provider Active Start: July 17, 2024 End: July 17, 2024 Marni Horn SHEET TURNER, SHEET TURNER-C Attending Provider Active Start: July 17, 2024 End: July 17, 2024 Marni Horn SHEET TURNER, SHEET TURNER-C Referring Provider Active Start: July 17, 2024 End: July 17, 2024 Team Status: Active Member Role/Relationship Status Dates Dr. Marycarmen Rodriguez DO Primary Care Provider Active Start: July 17, 2024 Dr. Zen East DO Attending Provider Active S tart: July 17, 2024 Marni Horn SHEET TURNER, SHEET TURNER-C Referring Provider Active Start: July 17, 2024 Team Status: Inactive Member Role/Relationship Status Dates Dr. Marycarmen Rodriguez DO Primary Care Provider Active Start: July 18, 2024 End: July 18, 2024 Marni Horn SHEET TURNER, SHEET TURNER-C Attending Provider Active Start: July 18, 2024 End: July 18, 2024 Marni Horn SHEET TURNER, SHEET TURNER-C Referring Provider Active Start: July 18, 2024 End: July 18, 2024 Team Status: Active Member Role/Relationship Status Dates Dr. Marycarmen Rodriguez DO Primary Care Provider Active Start: July 18, 2024 Marni Horn SHEET TURNER, SHEET TURNER-C Referring Provider Active Start: July 18, 2024 Marni Horn SHEET TURNER, SHEET TURNER-C Other Provider Active Start: July 18, 2024 Dr. Zen East DO Attending Provider Active S tart: July 18, 2024 Team Status: Inactive Member Role/Relationship Status Dates Dr. Marycarmen Rodriguez DO Primary Care Provider Active Start: August 03, 2024 End: August 03, 2024 Marni Horn SHEET TURNER, SHEET TURNER-C Attending Provider Active Start: August 03, 2024 End: August 03, 2024 Marni Horn SHEET TURNER, SHEET TURNER-C Referring Provider Active Start: August 03, 2024 [...] 2024 End: September 20, 2024 Maren Olivas NP-Jaziel Referring Provider Active Start: September 20, 2024 End: September 20, 2024 Team Status: Inactive Member Role/Relationship Status Dates Dr. Marycarmen Rodriguez DO Primary Care Provider Active Start: September 22, 2024 End: September 22, 2024 Marni Horn NP SHEET TURNER-C Attending Provider Active Start: September 22, 2024 [...] End: October 18, 2024 Gustabo Pérez NP, SHEET TURNER-C Other Provider Active Start : October 18, 2024 End: October 18, 2024 Team Status: Inactive Member Role/Relationship Status Dates Dr. Marycarmen Rodriguez DO Primary Care Provider Active Start: October 18, 2024 End: October 18, 2024 Marni Horn NP SHEET TURNER-C Attending Provider Active Start: October 18, 2024 End: October 18, 2024 Team Status: Inactive Member Role/Relationship Status Dates Dr. Marycarmen Rodriguez DO Primary Care Provider Active Start: October 25, 2024 End: October 25, 2024 Dr. Marycarmen Rodriguez DO Referring Provider Active Start: October 25, 2024 End: October 25, 2024 Gustabo Pérez SHEET TURNER, SHEET TURNER-C Attending Provider Active S tart: October 25, 2024 End: October 25, 2024 Team Status: Active Member Role/Relationship Status Dates Dr. Marycarmen Rodriguez DO Primary Care Provider Active Start: October 26, 2024 Marni Horn SHEET TURNER, SHEET TURNER-C Attending Provider Active Start: October 26, 2024 Marni Horn SHEET TURNER, SHEET TURNER-C Referring Provider Active Start: October 26, 2024 [...] 2024 End: October 26, 2024 Marni Horn SHEET TURNER, SHEET TURNER-C Attending Provider Active Start: October 26, 2024 End: October 26, 2024 Marni Horn SHEET TURNER, SHEET TURNER-C Referring Provider Active Start: October 26, 2024 End: October 26, 2024 Team Status: Inactive Member Role/Relationship Status Dates Dr. Marycarmen Rodriguez DO Primary Care Provider Active Start: August 03, 2024 End: August 03, 2024 Marni Horn SHEET TURNER, SHEET TURNER-C Attending Provider Active Start: August 03, 2024 End: August 03, 2024 Marni Horn SHEET TURNER, SHEET TURNER-C Referring Provider Active Start: August 03, 2024 [...] End: September 22, 2024 Marni Horn NP, SHEET TURNER-C Attending Provider Active Start: September 22, 2024 [...] End: October 18, 2024 Gustabo Pérez NP, SHEET TURNER-C Other Provider Active Start : October 18, 2024 End: October 18, 2024 Team Status: Inactive Member Role/Relationship Status Dates Dr. Marycarmen Rodriguez DO Primary Care Provider Active Start: October 18, 2024 End: October 18, 2024 Marni Horn NP, SHEET TURNER-C Attending Provider Active Start: October 18, 2024 End: October 18, 2024 Team Status: Inactive Member Role/Relationship Status Dates Dr. Marycarmen Rodriguez DO Primary Care Provider Active Start: October 25, 2024 End: October 25, 2024 Dr. Marycarmen Rodriguez DO Referring Provider Active Start: October 25, 2024 End: October 25, 2024 Gustabo H Roof SHEET TURNER, SHEET TURNER-C Attending Provider Active S tart: October 25, 2024 End: October 25, 2024 Team Status: Inactive Member Role/Relationship Status Dates Dr. Marycarmen Rodriguez DO Primary Care Provider Active Start: October 26, 2024 End: October 26, 2024 Marni Horn SHEET TURNER, SHEET TURNER-C Attending Provider Active Start: October 26, 2024 End: October 26, 2024 Marni Horn SHEET TURNER, SHEET TURNER-C Referring Provider Active Start: October 26, 2024 [...] Active Start: November 10, 2024 Gustabo Pérez SHEET TURNER, SHEET TURNER-C Attending Provider Active S tart: November 10, 2024 Gustabo Pérez SHEET TURNER, SHEET TURNER-C Referring Provider Active S tart: November 10, 2024 Team Status: Active Member Role/Relationship Status Dates Dr. Marycarmen Rodriguez DO Primary Care Provider Active Start: November 10, 2024 Dr. Lance Rodriguez MD Attending Provider Active S tart: November 10, 2024 Gustabo Pérez SHEET TURNER, SHEET TURNER-C Referring Provider Active S tart: November 10, [...] Active Start: November 13, 2024 Gustabo Pérez SHEET TURNER, SHEET TURNER-C Referring Provider Active S tart: November 13, 2024 Gustabo Gao Roof SHEET TURNER, SHEET TURNER-C Other Provider Active Start : November 13, 2024 Dr. Jose Hay MD Attending Provider Active Start: November 13, 2024 Team Status: Inactive Member Role/Relationship Status Dates Dr. Marycarmen Rodriguez DO Primary Care Provider Active Start: November 10, 2024 End: November 10, 2024 Gustabo Pérez SHEET TURNER, SHEET TURNER-C Attending Provider Active S tart: November 10, 2024 End: November 10, 2024 Gustabo Gao Roof SHEET TURNER, SHEET TURNER-C Referring Provider Active S tart: November 10, [...] 2024 End: November 22, 2024 Gustabo Pérez SHEET TURNER, SHEET TURNER-C Attending Provider Active S tart: November 22, [...] Active Start: November 22, 2024 Gustabo Pérez SHEET TURNER, SHEET TURNER-C Attending Provider Active S tart: November 22, 2024 Gustabo Pérez SHEET TURNER, SHEET TURNER-C Referring Provider Active S tart: November 22, [...] 2024 End: November 22, 2024 Gustabo Pérez SHEET TURNER, SHEET TURNER-C Attending Provider Active S tart: November 22, 2024 End: November 22, 2024 Gustabo Pérez SHEET TURNER, SHEET TURNER-C Referring Provider Active S tart: November 22, [...] 2024 End: September 20, 2024 Maren Olivas NP-Jaziel Referring Provider Active Start: September 20, 2024 End: September 20, 2024 Team Status: Inactive Member Role/Relationship Status Dates Dr. Marycarmen Rodriguez DO Primary Care Provider Active Start: September 22, 2024 End: September 22, 2024 Marni Horn NP SHEET TURNER-C Attending Provider Active Start: September 22, 2024 [...] 2024 End: October 18, 2024 Gustabo Pérez SHEET TURNER, SHEET TURNER-C Other Provider Active Start : October 18, 2024 End: October 18, 2024 Team Status: Inactive Member Role/Relationship Status Dates Dr. Marycarmen Rodriguez DO Primary Care Provider Active Start: October 18, 2024 End: October 18, 2024 Marni Horn SHEET TURNER, SHEET TURNER-C Attending Provider Active Start: October 18, 2024 End: October 18, 2024 Team Status: Inactive Member Role/Relationship Status Dates Dr. Marycarmen Rodriguez DO Primary Care Provider Active Start: October 25, 2024 End: October 25, 2024 Dr. Marycarmen Rodriguez DO Referring Provider Active Start: October 25, 2024 End: October 25, 2024 Gustabo Pérez SHEET TURNER, SHEET TURNER-C Attending Provider Active S tart: October 25, 2024 End: October 25, 2024 Team Status: Inactive Member Role/Relationship Status Dates Dr. Marycarmen Rodriguez DO Primary Care Provider Active Start: October 26, 2024 End: October 26, 2024 Marni Horn SHEET TURNER, SHEET TURNER-C Attending Provider Active Start: October 26, 2024 End: October 26, 2024 Marni Horn SHEET TURNER, SHEET TURNER-C Referring Provider Active Start: October 26, 2024 End: October 26, 2024 Team Status: Inactive Member Role/Relationship Status Dates Dr. Marycarmen Rodriguez DO Primary Care Provider Active Start: October 31, 2024 End: October 31, 2024 Dr. Marycarmen Rodriguez DO Referring Provider Active Start: October 31, 2024 End: October 31, 2024 Maren Olivas SHEET TURNER-C Attending Provider Active Start: October 31, 2024 [...] 2024 End: November 10, 2024 Gustabo Pérez SHEET TURNER, SHEET TURNER-C Attending Provider Active S tart: November 10, 2024 End: November 10, 2024 Gustabo Pérez SHEET TURNER, SHEET TURNER-C Referring Provider Active S tart: November 10, 2024 End: November 10, 2024 Team Status: Active Member Role/Relationship Status Dates Dr. Marycarmen Rodriguez DO Primary Care Provider Active Start: November 10, 2024 Dr. Lance Rodriguez MD Attending Provider Active S tart: November 10, 2024 Gustabo Pérez SHEET TURNER, SHEET TURNER-C Referring Provider Active S tart: November 10, 2024 Team Status: Inactive Member Role/Relationship Status Dates Dr. Marycarmen Rodriguez DO Primary Care Provider Active Start: November 10, 2024 End: November 10, 2024 Maren Olivas NP-C Attending Provider Active Start: November 10, 2024 End: November 10, 2024 Maren Olivas SHEET TURNER-C Referring Provider Active Start: November 10, 2024 End: November 10, 2024 Team Status: Active Member Role/Relationship Status Dates Dr. Marycarmen Rodriugez DO Primary Care Provider Active Start: November 13, 2024 Gustabo Pérez SHEET TURNER, SHEET TURNER-C Referring Provider Active S tart: November 13, 2024 Gustabo Pérez SHEET TURNER, SHEET TURNER-C Other Provider Active Start : November 13, [...] 2024 End: November 22, 2024 Gustabo Pérez SHEET TURNER, SHEET TURNER-C Attending Provider Active S tart: November 22, 2024 End: November 22, 2024 Team Status: Inactive Member Role/Relationship Status Dates Dr. Marycarmen Rodriguez DO Primary Care Provider Active Start: November 22, 2024 End: November 22, 2024 Gustabo Pérez SHEET TURNER, SHEET TURNER-C Attending Provider Active S tart: November 22, 2024 End: November 22, 2024 Gustabo éPrez SHEET TURNER, SHEET TURNER-C Referring Provider Active S tart: November 22, [...] Active Start: December 01, 2024 Dr. Abraham Ridely DO Admit Provider Active Start: December 01, [...] Active Start: December 04, 2024 Dr. Mickey Simspon MD Referring Provider Active Start: December 04, [...] 2024 End: December 12, 2024 Gustabo Pérez NP, SHEET TURNER-C Attending Provider Active S tart: December 12, [...] Status: Active Member Role/Relationship Status Dates Dr. Maryacrmen Rodriguez [...] Provider Active Start: December 04, 2024 Dr. Abrhaam Ridley DO Attending Provider Active Start: December [...] Active Start: December 12, 2024 Gustabo Pérez SHEET TURNER, SHEET TURNER-C Attending Provider Active S tart: December 12, 2024 Gustabo Pérez SHEET TURNER, SHEET TURNER-C Referring Provider Active S tart: December 12, [...] 2024 End: December 12, 2024 Gustabo Pérez SHEET TURNER, SHEET TURNER-C Attending Provider Active S tart: December 12, 2024 End: December 12, 2024 Gustabo Pérez SHEET TURNER, SHEET TURNER-C Referring Provider Active S tart: December 12, [...] Active Start: December 07, 2024 Dr. Shaan Sanots DO Other Provider Active Star t: December 07, 2024 Team Status: Inactive Member Role/Relationship Status Dates Dr. Marycarmen Rodriguez DO Primary Care Provider Active Start: December 07, 2024 End: December 07, 2024 Tess Balderas NP, SHEET TURNER-C Attending Provider Active Start: December 07, 2024 [...] End: December 12, 2024 Gustabo H Roof SHEET TURNER, SHEET TURNER-C Attending Provider Active S tart: December 12, 2024 End: December 12, 2024 Team Status: Inactive Member Role/Relationship Status Dates Dr. Marycarmen Rodriguez DO Primary Care Provider Active Start: December 12, 2024 End: December 12, 2024 Gustabo Pérez SHEET TURNER, SHEET TURNER-C Attending Provider Active S tart: December 12, 2024 End: December 12, 2024 Gustabo Pérez SHEET TURNER, SHEET TURNER-C Referring Provider Active S tart: December 12, [...] rt: December 25, 2024 Dr. Tyler Aiken , Other Provider Active St art: December 25, [...] End: December 26, 2024 Dr. Andrae Kennedy DO [...] January 01, 2025 Dr. Shaan Hirsch , DO Emergency Provider Active Start: January 01, 2025 [...] BE BASED ON THE PRIMARY CLINICAL RECORDS. [facility]. provides no warranty or guarantee of the accuracy or completeness of information in this document.
[2025-02-19 20:31] LABS: Anion Gap 13 (5-15); BUN 27 mg/dL (4-19); BUN/Creat Ratio 18.6 RATIO (10-20); Calcium,Total 9.3 mg/dL (7.6-11.0); Carbon Dioxide 23.4 mmol/L (21.0-32.0); Chloride 100 mmol/L (98-108); Estimated Creatinine Clearance 47.92 ml/min (50-250); Glucose 134 mg/dL (70-99); Potassium 4.1 mmol/L (3.3-5.1); Troponin T High Sensitivity 29 ng/L (<=22)
--- NOTE | 2025-02-19 20:43 | ED.VIS.CHEST ---
HPI History of Present Illness Chief Complaint: Chest Pain Narrative Narrative: Chief complaint and HPI: 79-year-old male with past medical history of CAD with multiple PCI, ischemic cardiomyopathy, HLD, DM, obesity, COPD presents for evaluation of chest pain and shortness of breath. Patient has been seen in our ED multiple times for the same complaint. History taken by patient as well as medical record. Patient states at baseline he has chronic chest pain and shortness of breath. States his chest pain has been more frequent over the past week and is lasting longer in intervals. He has associated with shortness of breath with increased swelling in his lower extremities. He does not know how much weight he has gained. He has not missed any doses of his anticoagulant. Review of systems: See HPI Medications: As listed on the chart Allergies: As listed on the chart PFSH: Per chart Vital signs: As listed on the chart. Reviewed. Physical exam: Gen: A&O x3, NAD Head: Normocephalic, atraumatic Eyes: No sclera icterus, conjunctiva clear ENT: Moist mucous membranes Neck: Trachea midline, No JVD CV: RRR, no murmurs, minimal nonpitting peripheral edema Resp: Lungs CTA BL, no w/r/c GI: Abd soft, non-distended, non-tender, no r/r/g Musc: Full ROM, no deformity Skin: Warm, dry Neuro: Alert, oriented, grossly intact, sensation intact Psych: Cooperative, appropriate mood and affect [facility] Medical History DEAN (dyspnea on exertion) Angina pectoris Obesity (BMI 30-39.9) Acute kidney injury superimposed on stage 4 chronic kidney disease Asthma Wheezing Abnormal stress test Bilateral lower extremity edema Pericardial effusion Chest pain CKD (chronic kidney disease) stage 4, GFR 15-29 ml/min Central sleep apnea Diastolic heart failure Recent ST elevation myocardial infarction (STEMI) Chest pain History of acute inferior wall IN Acute ST elevation myocardial infarction (STEMI) of inferior wall Anxiety Depression Diabetes Kidney disease Former smoker Atrial fibrillation Myocardial infarct Coronary artery disease Hypertension TIA (transient ischemic attack) Anemia Shortness of breath Unstable angina Fatigue Syncope Left-sided weakness History of COVID-19 Presence of stent in coronary artery (~08/31/22) Dyslipidemia Diabetes mellitus Chronic kidney disease Coronary artery disease Abnormal PFT Chest heaviness Palpitations Dizziness Leg pain Cough Exposure to COVID-19 virus Nonhealing nonsurgical wound with fat layer exposed Laceration without foreign body of scalp, subsequent encounter Acute left-sided weakness Essential hypertension CHF (congestive heart failure) History of melanoma Obesity (BMI 35.0-39.9 without comorbidity) CAD (coronary artery disease) 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.9) COPD (chronic obstructive pulmonary disease) TIA (transient ischemic attack) Obstructive sleep apnea Atherosclerotic heart disease [place] coronary artery w/angina pectoris Type 2 diabetes mellitus without complications Hyperlipidemia Obesity Home Medications ?Medication ?Instructions ?Recorded ?Last Taken ?Type aspirin 81 mg tablet,delayed 81 mg PO DAILY@0800 health 01/21/17 10/11/23 History release maintenance mirtazapine 15 mg tablet (Remeron) 15 mg PO QHS sleep 09/21/18 10/11/23 History magnesium oxide 400 mg (241.3 mg 800 mg PO DAILY SUPPLEMENT 08/01/21 10/11/23 History magnesium) tablet cholecalciferol (vitamin D3) [address] 09/16/21 10/11/23 History mcg (1,000 unit) tablet fluoxetine 40 mg capsule 80 mg PO DAILY DEPRESSION 90 days 09/16/21 10/11/23 History #180 caps acetaminophen 325 mg tablet 650 mg PO Q6H PRN Pain 1-02/0910/12/23 Unknown History atorvastatin 40 mg tablet 40 mg PO QHS CHOLESTEROL #90 tabs 06/14/24 Unknown Rx nitroglycerin 0.4 mg sublingual 0.4 mg sublingual Q5-15M PRN CHEST 06/14/24 Unknown Rx tablet PAIN #25 tabs pantoprazole 40 mg tablet,delayed 40 mg PO DAILY GERD #90 tabs 06/14/24 Unknown Rx release metoprolol succinate 25 mg 25 mg PO DAILY blood pressure #30 10/25/24 Unknown Rx tablet,extended release 24 hr tabs empagliflozin 10 mg tablet 10 mg PO DAILY #90 tabs 12/06/24 Unknown Rx (Jardiance) spironolactone 25 mg tablet 25 mg PO DAILY #90 tabs 12/06/24 Unknown Rx potassium chloride 10 mEq 30 meq (3 x 10 mEq) PO BID #0 tabs 12/17/24 Unknown Rx tablet,extended release(part/cryst) promethazine 12.5 mg tablet 12.5 mg PO Q6H PRN nausea and 12/17/24 Unknown Rx vomiting #1 TAB insulin degludec 100 unit/mL (3 10 unit subcut DAILY diabetes 12/24/24 Unknown History mL) subcutaneous pen levothyroxine 25 mcg tablet 25 mcg PO DAILY thyroid 12/24/24 Unknown History (Synthroid) ondansetron 4 mg disintegrating 4 mg PO Q6H PRN nausea and vomiting 12/24/24 Unknown History tablet Lactobacillus rhamnosus GG 10 1 cap PO DAILY 01/01/25 Unknown History billion cell capsule (Culturelle) doxycycline hyclate 100 mg capsule 100 mg PO BID uti 01/01/25 Unknown History phenylephrine 0.25 %-mineral oil 1 applic CA 4XD 01/01/25 Unknown History 14 %-petrolatm 74.9 % rectal ointment (Preparation H) ranolazine 500 mg tablet,extended 500 mg PO BID 01/01/25 Unknown History release,12 hr witch chito leaf (hamamelis) 1 applic topical 4XD 01/01/25 Unknown History (Pre-Moistened Medicated Wipes topical pads) cetirizine 10 mg tablet 10 mg PO DAILY Allergic Reaction 01/15/25 Unknown History colchicine 0.6 mg capsule 0.6 mg PO BID 01/15/25 Unknown History cyanocobalamin (vitamin B-12) 1,000 mcg PO QDAY 01/15/25 Unknown History 1,000 mcg tablet insulin lispro 100 unit/mL 1 sliding scale dose subcut 01/15/25 Unknown History subcutaneous pen (Humalog KwikPen USEASDIRECTD (U-100) Insulin) metolazone 2.5 mg tablet 2.5 mg PO ONCE PRN 01/15/25 Unknown History potassium chloride 20 mEq 60 meq PO QDAY 01/15/25 Unknown History tablet,extended release ASV - Adaptive Servo Ventilation 01/26/25 Unknown History ([facility] INFORMATIONAL USE ONLY) furosemide 40 mg tablet 60 mg PO QDAY 02/02/25 Unknown History rivaroxaban 2.5 mg tablet (Xarelto) 2.5 mg PO BID #180 tabs 02/06/25 Unknown Rx amlodipine 5 mg tablet 10 mg (2 x 5 mg) PO QPM blood 02/07/25 Unknown Rx pressure #90 tabs pantoprazole 40 mg tablet,delayed 40 mg PO BID 8 weeks #112 tabs 02/09/25 Unknown Rx release sucralfate 1 gram tablet 1 g PO BID 1 month #60 tabs 02/09/25 Unknown Rx Allergy/AdvReac Type Severity Reaction Status Date / Time ticagrelor (From Brilinta) Allergy Unknown Shortness Verified 02/19/25 19:21 of breath Family History Father Parkinsons disease Prostate cancer Mother Osteoporosis Surgical History Presence of coronary angioplasty implant and graft (11/27/24) History of tympanostomy tube placement History of percutaneous transluminal coronary angioplasty (08/18/18) History of herniorrhaphy Hx of cholecystectomy History of tonsillectomy History of prostatectomy Social History household members: spouse and none housing: half-way Smoking Status: Former smoker quit date: 05/03/98 pack-years: 50 how long ago did patient quit smokin years ago alcohol intake: never substance use type: does not use caffeine: Yes Type: coffee and tea Number of servings: 6 EXAM Physical Exam Const Vital Signs: 02/19/25 19:18 02/19/25 19:39 02/19/25 20:00 Temperature 98.9 F Temperature Source Oral Pulse Rate 71 Respiratory Rate 18 Respiratory Effort Short of Breath Blood Pressure 112/70 Blood Pressure Mean 84 Pulse Ox 95 Oxygen Delivery Method Room Air Room Air 02/19/25 20:17 02/19/25 21:00 Temperature Temperature Source Pulse Rate 71 71 Respiratory Rate 17 14 Respiratory Effort Blood Pressure 113/79 112/71 Blood Pressure Mean 90 84 Pulse Ox 95 97 Oxygen Delivery Method Room Air Room Air MDM MDM MDM Narrative Medical decision making narrative: 79-year-old male with past medical history of CAD with multiple PCI, ischemic cardiomyopathy, HLD, DM, obesity, COPD presents for evaluation of chest pain and shortness of breath. Patient has been seen in our ED multiple times for the same complaint. History taken by patient as well as medical record. Patient states at baseline he has chronic chest pain and shortness of breath. States his chest pain has been more frequent over the past week and is lasting longer in intervals. He has associated with shortness of breath with increased swelling in his lower extremities. On chart review, patient last saw cardiology on 02/06/2025. He underwent a heart catheterization on 11/27/2024 that resulted in drug-eluting stent in-stent restenosis to proximal-mid RCA. He then had a repeat heart catheterization on 12/02/2024 that showed patent RCA stents because he Simon presented for chest pain and EKG showing ST elevation. Echocardiogram showed an EF of 50%. He then had more chest pain thought to be due to coronary vasospasm. He then had a readmission for shortness of breath where he had a VQ mismatch that showed low likelihood of PE. Given his continued chest pain he was started on Ranexa therapy. On event monitor there was concerns for a complete heart block in which he was transferred to [facility]. He underwent a left heart catheterization in January that resulted in aspiration thrombectomy and stent placement to mid RCA. He received a temporary pacemaker. His heart block resolved. He was discharged. He underwent echo that showed an EF of 35 to 40%. Differential diagnosis includes but is not limited to CHF exacerbation, ACS, electrolyte abnormality, arrhythmia. Aspirin ordered for symptoms along with Zofran as he states he is mildly nauseous. Cardiac workup ordered. CBC without leukocytosis. Patient has anemia of 12.8. Present on previous labs. Platelet count unremarkable. INR unremarkable. BMP shows baseline CKD with creatinine of 1.46. BNP mildly elevated at 1971. 40 of IV Lasix ordered. 2-hour troponin 28, making the delta troponin 0. Given patient's extensive cardiac history, Dr. Araujo with cardiology was consulted. Patient was discussed. Patient stable to discharge home. Plan is to increase Lasix to 80 mg for the next 3 days and then back down to 60 mg. Patient and updated of the plan and results and confirmed understanding. Call the cardiology office in the morning to make a follow-up appointment. Return precautions explained. EKG: Interpreted by me/EM physician: EKG shows normal sinus rhythm without any acute ischemic changes. Heart rate 72 Diagnostic: Interpreted by me/EM physician: Chest x-ray shows mild pulmonary congestion with effusions. No pneumonia or pneumothorax. Cardiomegaly. Radiology in agreement. Impression: 1. Chest pain 2. Mild CHF exacerbation Lab Data Labs: Laboratory Results - last 24 hr 02/19/25 02/19/25 02/19/25 19:22 19:47 20:50 WBC 7.3 RBC 4.55 L Hgb 12.8 L Hct 40.5 MCV 89.0 MCH 28.1 MCHC 31.6 L RDW Std Deviation 49.5 H RDW Coeff of Adrian 15.1 H Plt Count 170 MPV 13.5 H Immature Gran % (Auto) 0.400 Neut % (Auto) 70.7 H Lymph % (Auto) 15.3 L Hamlin % (Auto) 12.1 H Eos % (Auto) 1.1 Baso % (Auto) 0.4 Absolute Neuts (auto) 5.2 Absolute Lymphs (auto) 1.12 Nucleated RBC % 0 PT 16.3 H INR 1.3 APTT 33.1 Sodium 137 Potassium 4.1 Chloride 100 Carbon Dioxide 23.4 Anion Gap 13 BUN 27 H Creatinine 1.46 H Estim Creat Clear Calc 47.92 L Est GFR (MDRD) Non-Af 49 L BUN/Creatinine Ratio 18.6 Glucose 134 H Calcium 9.3 Troponin T High Sens 29 H D NT pro BNP II 1971 H Radiography Diagnostic Testing: Clinical Impression(s) from Imaging Studies Chest X-Ray 02/19/25 20:00 IMPRESSION: [id number] pulmonary edema. Mild bibasilar pleural effusions. Left lower lobe opacity not excluded. Reading Location: [facility] Discharge Plan Triage Chief Complaint: Chest Pain ED Provider: Tor Irizarry Dx/Rx/DC Orders Prescriptions: No Action fluoxetine 40 mg capsule 80 mg PO DAILY 90 Days Qty: 180 magnesium oxide 400 mg (241.3 mg magnesium) tablet 800 mg PO DAILY cholecalciferol (vitamin D3) 25 mcg (1,000 unit) tablet 25 mcg PO DAILY cetirizine 10 mg tablet 10 mg PO DAILY metoprolol succinate 25 mg tablet extended release 24 hr 25 mg PO DAILY Qty: 30 11RF cyanocobalamin (vitamin B-12) 1,000 mcg tablet 1,000 mcg PO QDAY insulin lispro [Humalog KwikPen Insulin] 100 unit/mL insulin pen 1 sliding scale dose subcut USEASDIRECTD potassium chloride 20 mEq tablet extended release 60 meq PO QDAY metolazone 2.5 mg tablet 2.5 mg PO ONCE PRN colchicine 0.6 mg capsule 0.6 mg PO BID rivaroxaban [Xarelto] 2.5 mg tablet 2.5 mg PO BID Qty: 180 3RF amlodipine 5 mg tablet 10 mg PO QPM Qty: 90 3RF aspirin 81 MG tablet 81 mg PO DAILY@0800 acetaminophen 325 MG tablet 650 mg PO Q6H PRN (Reason: Pain -02/09) potassium chloride 10 mEq Tablet,Er Particles/Crystals 30 meq PO BID Qty: 0 0RF promethazine 12.5 mg tablet 12.5 mg PO Q6H PRN (Reason: nausea and vomiting) Qty: 1 0RF (DME) ASV - Adaptive Servo Ventilation ([facility] INFORMATIONAL USE ONLY) See Rx Instructions .Route .MEDSUPPLY Rx Instructions: ASV EEP: 7 PSmax: 18 PSmin: 6 DME: ORIGINALL WITH [facility] BUT WAS SET UP VIA [facility] D/T SNF ADMISSION AT [facility] MASK: LARGE F&P DARRION FFM spironolactone 25 mg Tablet 25 mg PO DAILY Qty: 90 0RF Jardiance 10 mg Tablet 10 mg PO DAILY Qty: 90 0RF levothyroxine [Synthroid] 25 mcg tablet 25 mcg PO DAILY insulin degludec 100 unit/mL (3 mL) insulin pen 10 unit subcut DAILY ondansetron 4 mg tablet,disintegrating 4 mg PO Q6H PRN (Reason: nausea and vomiting) Pre-Moistened Medicated Wipes Pad 1 applic topical 4XD Preparation H 0.25-14-74.9 % ointment 1 applic CA 4XD ranolazine 500 mg tablet extended release 12 hr 500 mg PO BID Culturelle 10 billion cell capsule 1 cap PO DAILY doxycycline hyclate 100 mg capsule 100 mg PO BID mirtazapine [Remeron] 15 mg tablet 15 mg PO QHS nitroglycerin 0.4 mg tablet, sublingual 0.4 mg SUBLINGUAL Q5-15M PRN (Reason: CHEST PAIN) Qty: 25 3RF atorvastatin 40 mg tablet 40 mg PO QHS Qty: 90 3RF pantoprazole 40 mg tablet,delayed release (DR/EC) 40 mg PO DAILY Qty: 90 3RF furosemide 40 mg tablet 60 mg PO QDAY Rx Instructions: Was increased by PCP. Patient to take 40 mg BID X 3-5 days then return to 60 mg daily. sucralfate 1 gram tablet 1 g PO BID 30 Days Qty: 60 0RF pantoprazole 40 mg tablet,delayed release (DR/EC) 40 mg PO BID 56 Days Qty: 112 0RF Primary Care Provider: Victor M Luke Referrals: Victor M Luke DO [Primary Care Provider, Family Practice] Print Language: Burmese
[2025-02-19 21:00] VITALS: BP 112/71; PULSE 71; RESP 14; O2SAT 97
[2025-02-19 21:49] LABS: Pro- Brain NATRIURETIC PEPTIDE 1971 pg/mL (<=1800)
[2025-02-19 21:50] LABS: Prothrombin Time (Protime)PT. 16.3 SECONDS (11.7-14.9)
[2025-02-19 21:51] LABS: Partial Thromboplast Time 33.1 Seconds (24.1-36.2)
[2025-02-19 22:00] VITALS: BP 104/71; BP 104/72; PULSE 66; PULSE 67; RESP 15; O2SAT 94
[2025-02-19 22:50] LABS: Troponin T High Sens 2 HR 28 ng/L (<=22)
[2025-02-19 23:00] VITALS: BP 120/82; BP 95/65; PULSE 63; RESP 15; RESP 17; TEMP 36.8; O2SAT 93; O2SAT 95
== END 2025-02-19 23:32 | disposition home or self-care (01) ==
PROVIDERS: Emergency Provider Surgery; PCP Family Medicine; Visit Provider Surgery
DX: R07.9 Chest pain, unspecified (principal); N18.4 Chronic kidney disease, stage 4 (severe); I50.32 Chronic diastolic (congestive) heart failure; I13.0 Hypertensive heart and chronic kidney disease with heart failure and stage 1 through stage 4 chronic kidney disease, or unspecified chronic kidney disease; J44.9 Chronic obstructive pulmonary disease, unspecified; E11.22 Type 2 diabetes mellitus with diabetic chronic kidney disease; I25.10 Atherosclerotic heart disease of native coronary artery without angina pectoris; E78.5 Hyperlipidemia, unspecified; Z95.5 Presence of coronary angioplasty implant and graft; E66.9 Obesity, unspecified; D64.9 Anemia, unspecified; Z87.891 Personal history of nicotine dependence; Z79.899 Other long term (current) drug therapy
CPT/HCPCS: 71045; 80048; 83880; 84484; 85025; 85610; 85730; 93005; 96374; 96375; 99285; A4216; J1938; J2405

== ENCOUNTER 2025-02-21 12:49 | Emergency (ER) | payer MEDICARE, OTHER, SELFPAY ==
[2018-08-03 13:04] VITALS: BMI 19.8
[2025-02-21 12:49] VITALS: BP 110/67; PULSE 81; RESP 16; TEMP 36.6; O2SAT 98
[2025-02-21 13:06] LABS: Hematocrit 41.7 % (40-54); Hemoglobin 13.3 g/dL (13.0-16.5); Immature Granulocytes Count 0.040 X10^3/uL (0.0-0.0); Mean Corp Hgb Conc 31.9 g/dL (32-36); Mean Corpuscular Volume 89.3 fL (80-94); Mean Platelet Vol. 13.0 fl (6.2-12.0); NRBC Flagged by Analyzer 0 % (0-5); Platelet Count 176 K/mm3 (150-450); RBC Distribution Width CV 15.4 % (11.6-14.6); RBC Distribution Width SD 50.4 fl (35.1-43.9); Red Blood Count 4.67 M/mm3 (4.6-6.2); White Blood Count 7.4 K/mm3 (4.4-11.0)
[2025-02-21 13:26] VITALS: BMI 31.8
[2025-02-21 13:29] VITALS: BP 108/69; PULSE 65; RESP 16; O2SAT 93
[2025-02-21 13:40] LABS: Anion Gap 14 (5-15); BUN 31 mg/dL (4-19); BUN/Creat Ratio 16.4 RATIO (10-20); Calcium,Total 9.2 mg/dL (7.6-11.0); Carbon Dioxide 23.1 mmol/L (21.0-32.0); Chloride 98 mmol/L (98-108); Estimated Creatinine Clearance 36.55 ml/min (50-250); Glucose 157 mg/dL (70-99); Potassium 4.2 mmol/L (3.3-5.1); Troponin T High Sensitivity 27 ng/L (<=22)
[2025-02-21 14:21] VITALS: BP 94/63; PULSE 62; RESP 14; O2SAT 94
[2025-02-21 15:11] VITALS: BP 98/73; PULSE 61; RESP 14; O2SAT 96
[2025-02-21 15:53] LABS: Troponin T High Sens 2 HR 27 ng/L (<=22)
[2025-02-21 15:59] VITALS: BP 100/67; PULSE 67; RESP 16; O2SAT 94
== END 2025-02-21 16:10 | disposition home or self-care (01) ==
PROVIDERS: Emergency Medicine; Emergency Provider Emergency Medicine; PCP Family Medicine; Visit Provider Emergency Medicine
DX: R07.89 Other chest pain (principal); N18.4 Chronic kidney disease, stage 4 (severe); I13.0 Hypertensive heart and chronic kidney disease with heart failure and stage 1 through stage 4 chronic kidney disease, or unspecified chronic kidney disease; I50.32 Chronic diastolic (congestive) heart failure; J44.9 Chronic obstructive pulmonary disease, unspecified; E11.22 Type 2 diabetes mellitus with diabetic chronic kidney disease; I25.10 Atherosclerotic heart disease of native coronary artery without angina pectoris; Z87.891 Personal history of nicotine dependence; E78.5 Hyperlipidemia, unspecified; Z95.5 Presence of coronary angioplasty implant and graft; K21.9 Gastro-esophageal reflux disease without esophagitis; R06.09 Other forms of dyspnea; R79.89 Other specified abnormal findings of blood chemistry; I25.5 Ischemic cardiomyopathy; I25.2 Old myocardial infarction
CPT/HCPCS: 71045; 80048; 84484; 85025; 93005; 99283

== ENCOUNTER 2025-03-16 17:08 | Inpatient (IN) | payer MEDICARE, OTHER, SELFPAY ==
[2018-08-03 13:04] VITALS: BMI 19.8
[2025-03-16] VITALS (13 sets, daily range): BP systolic 100–130; BP diastolic 67–89; PULSE 66–80; RESP 15–24; TEMP 36.5–36.8; O2SAT 68–97; BMI 32.4; BMI 32.3
--- NOTE | 2025-03-16 17:25 | CT_ITS ---
PROCEDURE: STROKE BRAIN/HEAD WITHOUT CONT 03/16/2025 REASON FOR EXAM: NEURO DEFICIT, ACUTE, STROKE SUSPECTED TECHNIQUE: Procedure Code: CTBR.ST Modality: CT Procedure: STROKE BRAIN/HEAD WITHOUT CONT Coronal and Sagittal reconstruction series were provided. One or more dose reduction techniques were used (e.g., Automated exposure control, adjustment of the mA and/or kV according to patient size, use of iterative reconstruction technique. COMPARISON: CT head 12/02/2024 FINDINGS: There is no extra-axial or intra-axial intracranial hemorrhage. No mass effect or midline shift is seen. Generalized intracranial volume loss and findings compatible with chronic microvascular white matter ischemia. There is normal ashton-white matter differentiation. The posterior fossa is grossly unremarkable. The skull is unremarkable. Visualized paranasal sinuses are clear. The mastoid air cells show normal translucency. CT/STROKE Brain/Head without Cont IMPRESSION: 1. No intracranial hemorrhage. No mass effect or midline shift. 2. Chronic involutional and ischemic gliotic white matter changes. CT is insensitive for early evaluation of acute stroke. If there is clinical co ncern for acute ischemia, an MRI may be considered. Stroke Alert: The critical findings in the findings and impression above were relayed directl y by me by telephone to Isael Bernabe on 03/16/2025 at 5:45 p.m. EST with readback verification. Reading Location: [facility]
--- NOTE | 2025-03-16 17:25 | CT_ITS ---
PROCEDURE: STROKE CTA HEAD AND NECK W/CON 03/16/2025 REASON FOR EXAM: NEURO DEFICIT, ACUTE, STROKE SUSPECTED TECHNIQUE: Procedure Code: CTCTA.ST.HN Modality: CT Procedure: STROKE CTA HEAD AND NECK W/CON Multiplanar Sagittal and Coronal images were obtained. CONTRAST: 100 cc of Isovue 370 One or more dose reduction techniques were used (e.g., Automated exposure control, adjustment of the mA and/or kV according to patient size, use of iterative reconstruction technique). COMPARISON: Same-day CT head FINDINGS: Aortic Arch: Normal size and branching pattern. No significant atherosclerotic plaque. Brachiocephalic and Subclavians: Unremarkable RIGHT Carotid: Right CCA: Unremarkable. Right ICA: Mild calcified plaque at the origin. Maximum stenosis (NASCET): n/a Right ECA: Unremarkable. LEFT Carotid: Left CCA: Unremarkable. Left ICA: Mild calcified plaque formation at the origin. Maximum stenosis (NASCET): n/a Left ECA: Unremarkable. Vertebrals: Codominant. Arise from the subclavians. Both vertebrals form the basilar. RIGHT Vertebral: Unremarkable. LEFT Vertebral: Unremarkable. Anatomy: [place] of [place] anatomy is normal. Aneurysm or avm: No intracranial aneurysms or large vascular malformations are identified. Anterior cerebral arteries: Unremarkable: Middle cerebral arteries: Unremarkable. Basilar artery: Unremarkable. Posterior cerebral arteries: Unremarkable. Other major branches of the posterior circulation: Unremarkable. Major venous structures: Unremarkable. Other findings: Neck: No lymphadenopathy. Lungs: Lung apices are clear. Bones: Moderate degenerate changes of the cervical spine. ACDF at C4-C6. No acute fractures. CT/STROKE CTA Head AND Neck W/Con IMPRESSION: Unremarkable CT angiogram of the head and neck with no evidence of hemodynamica lly significant stenosis or occlusion. Reading [facility]
--- NOTE | 2025-03-16 17:49 | ED.RN ---
Pt states he does not know his home medications
[2025-03-16 18:03] LABS: Hematocrit 37.8 % (40-54); Hemoglobin 11.8 g/dL (13.0-16.5); Immature Granulocytes Count 0.020 X10^3/uL (0.0-0.0); Mean Corp Hgb Conc 31.2 g/dL (32-36); Mean Corpuscular Volume 90.0 fL (80-94); Mean Platelet Vol. 12.8 fl (6.2-12.0); NRBC Flagged by Analyzer 0 % (0-5); Platelet Count 135 K/mm3 (150-450); RBC Distribution Width CV 15.0 % (11.6-14.6); RBC Distribution Width SD 49.5 fl (35.1-43.9); Red Blood Count 4.20 M/mm3 (4.6-6.2); White Blood Count 6.0 K/mm3 (4.4-11.0)
[2025-03-16 18:09] LABS: Partial Thromboplast Time 31.8 Seconds (24.1-36.2); Prothrombin Time (Protime)PT. 17.3 SECONDS (11.7-14.9)
[2025-03-16 18:15] LABS: Anion Gap 9 (5-15); BUN 22 mg/dL (4-19); BUN/Creat Ratio 14.7 RATIO (10-20); Calcium,Total 8.4 mg/dL (7.6-11.0); Carbon Dioxide 24.5 mmol/L (21.0-32.0); Chloride 99 mmol/L (98-108); Estimated Creatinine Clearance 47.74 ml/min (50-250); Glucose 141 mg/dL (70-99); Potassium 4.2 mmol/L (3.3-5.1); Troponin T High Sensitivity 18 ng/L (<=22)
--- NOTE | 2025-03-16 18:15 | RAD_ITS ---
PROCEDURE: CHEST 1 VIEW 03/16/2025 REASON FOR EXAM: NEURO DEFICIT, ACUTE, STROKE SUSPECTED TECHNIQUE: Frontal view of the chest. COMPARISON: 02/21/2025 FINDINGS: Hardware: None. Heart: Cardiac and mediastinal contours are stable. Lungs: No significant change in the appearance of the lungs. Bones: The bones are unremarkable. RAD/Chest 1 View IMPRESSION: No Acute Findings. Reading Location: [facility]
--- NOTE | 2025-03-16 18:34 | ED.VIS.STROK ---
HPI History of Present Illness Chief Complaint: Stroke Alert Narrative Narrative: 79-year-old male past medical history of coronary artery disease, multiple stents placed, initially presented with chest pain that began yesterday morning, greater than 24 hours ago. However, while he was riding in the ambulance prior to arrival, he states that he had numbness of his bilateral lower extremities but left greater than right. He is complaining of numbness and tingling of his left arm and face as well. He states that his right lower extremity has improved, but he has numbness and tingling in his left lower extremity. He has past medical history of diabetes, hypertension, ischemic cardiomyopathy, and is on Xarelto. [facility] Medical History (Updated 03/16/25 @ 19:34 by Isael Bernabe MD) Obesity (BMI 30-39.9) Asthma Bilateral lower extremity edema Pericardial effusion CKD (chronic kidney disease) stage 4, GFR 15-29 ml/min Central sleep apnea Diastolic heart failure History of acute inferior wall RI Acute ST elevation myocardial infarction (STEMI) of inferior wall Anxiety Depression Diabetes Kidney disease Former smoker Atrial fibrillation Myocardial infarct Coronary artery disease Hypertension TIA (transient ischemic attack) Anemia Left-sided weakness History of COVID-19 Presence of stent in coronary artery (~08/31/22) Dyslipidemia Diabetes mellitus Chronic kidney disease Coronary artery disease Nonhealing nonsurgical wound with fat layer exposed Essential hypertension CHF (congestive heart failure) History of melanoma Obesity (BMI 35.0-39.9 without comorbidity) CAD (coronary artery disease) 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.9) COPD (chronic obstructive pulmonary disease) TIA (transient ischemic attack) Obstructive sleep apnea Atherosclerotic heart disease [place] coronary artery w/angina pectoris Type 2 diabetes mellitus without complications Hyperlipidemia Obesity Home Medications Medication Instructions Recorded Last Taken Type mirtazapine 15 mg tablet (Remeron) 15 mg PO QHS sleep 09/21/18 10/11/23 History magnesium oxide 400 mg (241.3 mg 800 mg PO DAILY SUPPLEMENT 08/01/21 10/11/23 History magnesium) tablet cholecalciferol (vitamin D3) [address] 09/16/21 10/11/23 History mcg (1,000 unit) tablet fluoxetine 40 mg capsule 80 mg PO DAILY DEPRESSION 90 days 09/16/21 10/11/23 History #180 caps acetaminophen 325 mg tablet 650 mg PO Q6H PRN Pain 1-02/0910/12/23 Unknown History atorvastatin 40 mg tablet 40 mg PO QHS CHOLESTEROL #90 tabs 06/14/24 Unknown Rx nitroglycerin 0.4 mg sublingual 0.4 mg sublingual Q5-15M PRN CHEST 06/14/24 Unknown Rx tablet PAIN #25 tabs pantoprazole 40 mg tablet,delayed 40 mg PO DAILY GERD #90 tabs 06/14/24 Unknown Rx release promethazine 12.5 mg tablet 12.5 mg PO Q6H PRN nausea and 12/17/24 Unknown Rx vomiting #1 TAB insulin degludec 100 unit/mL (3 10 unit subcut DAILY diabetes 12/24/24 Unknown History mL) subcutaneous pen levothyroxine 25 mcg tablet 25 mcg PO DAILY thyroid 12/24/24 Unknown History (Synthroid) ondansetron 4 mg disintegrating 4 mg PO Q6H PRN nausea and vomiting 12/24/24 Unknown History tablet cyanocobalamin (vitamin B-12) 1,000 mcg PO QDAY 01/15/25 Unknown History 1,000 mcg tablet ASV - Adaptive Servo Ventilation 01/26/25 Unknown History ([facility] IN[facility]ATIONAL USE ONLY) furosemide 40 mg tablet 60 mg PO QDAY 02/02/25 Unknown History carvedilol 6.25 mg tablet 6.25 mg PO BID #60 tabs 02/22/25 Unknown Rx clopidogrel 75 mg tablet 75 mg PO QDAY #90 tabs 02/22/25 03/16/25 Rx amlodipine 5 mg tablet 5 mg PO QPM blood pressure 03/05/25 Unknown History loratadine 10 mg tablet 10 mg PO QDAY 03/05/25 Unknown History losartan 25 mg tablet 25 mg PO QDAY #90 tabs 03/05/25 Unknown Rx phenylephrine 0.25 %-mineral oil 1 applic DE 4XD PRN hemorrhoids 03/05/25 Unknown History 14 %-petrolatm 74.9 % rectal ointment (Preparation H) potassium chloride 10 mEq 10 meq PO QDAY 03/05/25 Unknown History tablet,extended release ranolazine 500 mg tablet,extended 500 mg PO BID 03/05/25 Unknown History release,12 hr rivaroxaban 2.5 mg tablet (Xarelto) 2.5 mg PO BID #180 tabs 03/05/25 Unknown Rx spironolactone 50 mg tablet 50 mg PO QAM 03/05/25 Unknown History sucralfate 1 gram tablet 1 g PO BID 03/16/25 Unknown History Allergy/AdvReac Type Severity Reaction Status Date / Time ticagrelor (From Brilinta) Allergy Unknown Shortness Verified 03/16/25 17:09 of breath Family History Father Parkinsons disease Prostate cancer Mother Osteoporosis Surgical History Presence of coronary angioplasty implant and graft (11/27/24) History of tympanostomy tube placement History of percutaneous transluminal coronary angioplasty (08/18/18) History of herniorrhaphy Hx of cholecystectomy History of tonsillectomy History of prostatectomy Social History household members: spouse and none housing: assisted Smoking Status: Former smoker quit date: 05/03/98 pack-years: 50 how long ago did patient quit smokin years ago alcohol intake: never substance use type: does not use caffeine: Yes Type: coffee and tea Number of servings: 6 ROS ROS ED ROS Narrative Review of systems is positive for left lower extremity weakness, numbness and tingling, and left arm numbness and tingling. Had chest pain similar to previous chest pain episodes starting yesterday morning, greater than 24 hours ago. No nausea or vomiting, no exacerbating or alleviating factors. EXAM Physical Exam Narrative Exam Narrative: Afebrile. Vital signs noted. Nontoxic-appearing. Cardiovascular examination feels a regular rate and rhythm. Lungs are clear to auscultation bilaterally. Abdomen is soft and nontender with positive bowel sounds. Neurological examination shows left lower extremity weakness with an NIH stroke scale of 4 as he had left lower extremity drift and it hit the bed with ataxia. Const Vital Signs: 03/16/25 17:09 03/16/25 17:29 03/16/25 17:29 Temperature 97.7 F L Temperature Source Oral Pulse Rate 80 73 Respiratory Rate 24 H 15 Blood Pressure 130/82 H 130/82 H Blood Pressure Mean 98 98 Pulse Ox 97 95 Oxygen Delivery Method Room Air Room Air Room Air 03/16/25 17:55 03/16/25 18:25 03/16/25 18:30 Temperature Temperature Source Pulse Rate 78 73 74 Respiratory Rate 15 18 16 Blood Pressure 119/89 H 120/76 120/73 Blood Pressure Mean 99 90 88 Pulse Ox 96 95 96 Oxygen Delivery Method Room Air Room Air Room Air MDM MDM MDM Narrative Medical decision making narrative: Although his chest pain started greater than 24 hours ago, stroke team was activated as his symptoms began just prior to arrival. Differential diagnosis includes intracranial hemorrhage versus TIA versus stroke. I have low suspicion for aortic dissection as he is not having any tearing back pain and this is his chest pain that is typical with his history of coronary artery disease. In discussion with the stroke neurologist, he had an NIH of 6 as there was pronator drift on the left but not initially on my examination. I received a call from the radiologist regarding the CT of the brain which shows no acute hemorrhage. I reviewed the radiology report of the CTA of the brain and of the neck and it shows no large vessel occlusion, no significant artery stenosis. I reviewed his laboratory work and he has normal white count of 6.0 with hemoglobin 11.8, hematocrit 37.8, platelet count slightly low at 135. Coagulation studies are negative with an INR of 1.4 but PTT slightly elevated at 17.3. BMP is remarkable for BUN of 22 and creatinine 1.46 with glucose 141. Initial high-sensitivity troponin is 18. EKG was obtained and interpreted by myself independently as normal sinus rhythm at 80 bpm without ectopy or acute ST changes. No STEMI. I reviewed the prehospital EKG as well and interpreted it and it demonstrates normal sinus rhythm at [address] changes as well. Chest x-ray 1 view interpreted by myself independently shows no evidence of an acute process. No pneumonia or pneumothorax. I reviewed the radiology report which confirms my independent interpretation. Although his second troponin is pending, I do not feel that he needs a CTA of the chest currently. He is not a candidate for TNK as it is contraindicated as he takes Xarelto and last took it this morning. In discussion with neurology, he already took his Plavix today so he should be covered as an antiplatelet. They recommend observation on the PCU for MRI and further workup for stroke. Patient was discussed with the hospitalist for observation in the PCU. Patient discussed with Dr. Alka Leo. Patient is in stable condition. History & Record Review Discussion w/independent historian: Patient and Family Lab Data Attestation: I reviewed the patient's lab results. Labs: Laboratory Results - last 24 hr 03/16/25 17:38 WBC 6.0 RBC 4.20 L Hgb 11.8 L Hct 37.8 L MCV 90.0 MCH 28.1 MCHC 31.2 L RDW Std Deviation 49.5 H RDW Coeff of Adrian 15.0 H Plt Count 135 L MPV 12.8 H Immature Gran % (Auto) 0.300 Neut % (Auto) 66.9 Lymph % (Auto) 19.2 [place] % (Auto) 12.1 H Eos % (Auto) 1.0 Baso % (Auto) 0.5 Absolute Neuts (auto) 4.0 Absolute Lymphs (auto) 1.16 Nucleated RBC % 0 PT 17.3 H INR 1.4 APTT 31.8 Sodium 133 Potassium 4.2 Chloride 99 Carbon Dioxide 24.5 Anion Gap 9 BUN 22 H Creatinine 1.46 H Estim Creat Clear Calc 47.74 L Est GFR (MDRD) Non-Af 49 L BUN/Creatinine Ratio 14.7 Glucose 141 H Calcium 8.4 Troponin T High Sens 18 D Radiography Diagnostic Testing: Clinical Impression(s) from Imaging Studies Brain CT 03/16/25 17:25 IMPRESSION: 1. No intracranial hemorrhage. No mass effect or midline shift. 2. Chronic involutional and ischemic gliotic white matter changes. CT is insensitive for early evaluation of acute stroke. If there is clinical concern for acute ischemia, an MRI may be considered. Stroke Alert: The critical findings in the findings and impression above were relayed directly by me by telephone to Isael Bernabe on 03/16/2025 at 5:45 p.m. EST with readback verification. Reading Location: [facility] Head/Neck CTA 03/16/25 17:25 IMPRESSION: Unremarkable CT angiogram of the head and neck with no evidence of hemodynamically significant stenosis or occlusion. Reading Location: [facility] Chest X-Ray 03/16/25 18:15 IMPRESSION: No Acute Findings. Reading Location: [facility] Management Discussion w/another healthcare provider: Hospitalist (Dr. Alka Leo) Discharge Plan Dx/Rx/DC Orders Clinical Impression: Chest pain, Left leg weakness, Left leg paresthesias Disposition Disposition: Acute Care Hospital [facility] NIHSS NIHSS 1a. Level of Consciousness: 0 - Alert; keenly responsive 1b. LOC Questions: 0 - Answers BOTH questions correctly 1c. LOC Commands: 0 - Performs BOTH tasks correctly 2. Best Gaze: 0 - Normal 3. Visual: 0 - No visual loss 4. Facial Palsy: 0 - Normal symmetrical movements 5a. Left Arm: 0 - No drift; arm holds 90 (or 45) degrees for full 10 seconds 5b. Right Arm: 0 - No drift; arm holds 90 (or 45) degrees for full 10 seconds 6a. Left Le - No effort against gravity; leg falls to bed immediately 6b. Right Le - No drift; leg holds 30-degree position for full 5 seconds 7. Limb Ataxia: 1 - Present in 1 limb 8. Sensory: 0 - Normal; no sensory loss 9. Best Language: 0 - No aphasia; normal 10. Dysarthria: 0 - Normal 11. Extinction and Inattention: 0 - No abnormality Total: 4 Stroke Questions Stroke Team Activated: Yes Reviewed Inclusion/Exclusion criteria: Yes IV Thrombolytic Administered: No No contraindications from thrombolytic administration: No
--- NOTE | 2025-03-16 19:20 | HP.PCM.HOS_ITS ---
HPI - General General Date of Admission: 03/16/25 Date of Service: 03/16/25 Chief Complaint: Chest pain, L>R BL paresthesias. HPI Narrative The patient is a 79 y/o M w/ PMHx: Obesity, Chronic anemia, CKD stage III unclear subtype or GFR trending, Thrombocytopenia, Asthma/COPD, HFpEF, Anxiety and Depression, Diabetes mellitus type II, PAF, Hx TIA, MATTHEW, CAD w/ STEMI s/p PCI, Former tobacco use, Hypothyroidism who presents to the [facility] ED on 03/16/2025 with onset of midsternal chest discomfort beginning the day prior however he did not contact EMS until this evening and while in the ambulance just prior to arrival had bilateral lower extremity numbness however left greater than right in addition to the left face and left arm with some improvement to the right lower extremity paresthesias but ongoing changes to the left side. Patient describes the chest discomfort as sharp and heavy with associated dyspnea and diaphoresis. Currently patient is chest pain free. He notes the discomfort was primarily when he was attempting to be active. Patient does report intermittent left groin pain but upon palpation the ED he denies any pain at this time. Workup in the ED included T97.7, heart rate 80, BP 130/82, respiratory rate 24, 97% on room air with most recent repeat vitals heart rate 74, BP 120/73, respiratory rate 16, 96% on room air, CBC with WC 6, hemoglobin 11.8, MCV 90, platelet 135 without marked shift, unremarkable coags aside PT 17.3, BMP with BUN/Cr 22/1.46, GFR 49, glucose 141, troponin 18, CT of the brain with no acute intracranial findings with chronic involutional and ischemic gliotic white matter changes, CTA head and neck unremarkable with no evidence of hemodynamically significant stenosis or occlusion, chest x-ray with no acute cardiopulmonary findings, EKG sinus rhythm with no acute evidence of ischemia. Telestroke was initiated with NIH stroke assessment of 1 4 question, 1 for drift, 3 for against gravity and 1 for mild to moderate sensory loss. [facility] Medical History (Updated 03/16/25 @ 19:34 by Isael Bernabe MD) Obesity (BMI 30-39.9) Asthma Bilateral lower extremity edema Pericardial effusion CKD (chronic kidney disease) stage 4, GFR 15-29 ml/min Central sleep apnea Diastolic heart failure History of acute inferior wall AR Acute ST elevation myocardial infarction (STEMI) of inferior wall Anxiety Depression Diabetes Kidney disease Former smoker Atrial fibrillation Myocardial infarct Coronary artery disease Hypertension TIA (transient ischemic attack) Anemia Left-sided weakness History of COVID-19 Presence of stent in coronary artery (~08/31/22) Dyslipidemia Diabetes mellitus Chronic kidney disease Coronary artery disease Nonhealing nonsurgical wound with fat layer exposed Essential hypertension CHF (congestive heart failure) History of melanoma Obesity (BMI 35.0-39.9 without comorbidity) CAD (coronary artery disease) 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.9) COPD (chronic obstructive pulmonary disease) TIA (transient ischemic attack) Obstructive sleep apnea Atherosclerotic heart disease [place] coronary artery w/angina pectoris Type 2 diabetes mellitus without complications Hyperlipidemia Obesity Home Medications Medication Instructions Recorded Last Taken Type mirtazapine 15 mg tablet (Remeron) 15 mg PO QHS sleep 09/21/18 10/11/23 History magnesium oxide 400 mg (241.3 mg 800 mg PO DAILY SUPPL EMENT 08/01/21 10/11/23 History magnesium) tablet cholecalciferol (vitamin D3) [address] 10/11/23 History mcg (1,000 unit) tablet fluoxetine 40 mg capsule 80 mg PO DAILY DEPRESSION 90 days 09/16/21 10/11/23 History #180 caps acetaminophen 325 mg tablet 650 mg PO Q6H PRN Pain 1-1 10/12/23 Unknown History atorvastatin 40 mg tablet 40 mg PO QHS CHOLESTEROL #90 tabs 06/14/24 Unknown Rx nitroglycerin 0.4 mg sublingual 0.4 mg sublingual Q5-1 5M PRN CHEST 06/14/24 Unknown Rx tablet PAIN #25 tabs pantoprazole 40 mg tablet,delayed 40 mg PO DAILY GERD #90 tabs 06/14/24 Unknown Rx release promethazine 12.5 mg tablet 12.5 mg PO Q6H PRN nausea and 12/17/24 Unknown Rx vomiting #1 TAB insulin degludec 100 unit/mL (3 10 unit subcut DAILY d iabetes 12/24/24 Unknown History mL) subcutaneous pen levothyroxine 25 mcg tablet 25 mcg PO DAILY thyroid Unknown History (Synthroid) ondansetron 4 mg disintegrating 4 mg PO Q6H PRN nausea and vomiting 12/24/24 Unknown History tablet cyanocobalamin (vitamin B-12) 1,000 mcg PO QDAY Unknown History 1,000 mcg tablet ASV - Adaptive Servo Ventilation 01/26/25 Unknown His tory ([facility] INFORMATIONAL USE ONLY) furosemide 40 mg tablet 60 mg PO QDAY 02/02/25 Unkno wn History carvedilol 6.25 mg tablet 6.25 mg PO BID #60 tabs 02/01 07/25 Unknown Rx clopidogrel 75 mg tablet 75 mg PO QDAY #90 tabs 02/2203/16/25 Rx amlodipine 5 mg tablet 5 mg PO QPM blood pressure 1 05/05/24 Unknown History loratadine 10 mg tablet 10 mg PO QDAY 03/05/25 Unkno wn History losartan 25 mg tablet 25 mg PO QDAY #90 tabs 03/05 Unknown Rx phenylephrine 0.25 %-mineral oil 1 applic DC 4XD PRN h emorrhoids 03/05/25 Unknown History 14 %-petrolatm 74.9 % rectal ointment (Preparation H) potassium chloride 10 mEq 10 meq PO QDAY 03/05/25 Unkn own History tablet,extended release ranolazine 500 mg tablet,extended 500 mg PO BID Unknown History release,12 hr rivaroxaban 2.5 mg tablet (Xarelto) 2.5 mg PO BID #180 tabs 03/05/25 Unknown Rx spironolactone 50 mg tablet 50 mg PO QAM 03/05/25 Unkn own History sucralfate 1 gram tablet 1 g PO BID 03/16/25 Unknown History Allergy/AdvReac Type Severity Reaction Status Date / Time ticagrelor (From Brilinta) Allergy Unknown Shortness Verified 03/16/25 17:09 of breath Family History Father Parkinsons disease Prostate cancer Mother Osteoporosis Surgical History Presence of coronary angioplasty implant and graft (11/27/24) History of tympanostomy tube placement History of percutaneous transluminal coronary angioplasty (08/18/18) History of herniorrhaphy Hx of cholecystectomy History of tonsillectomy History of prostatectomy Social History (Updated 03/16/25 @ 20:[address] Alka Leo MD) household members: spouse Smoking Status: Former smoker quit date: 05/03/98 pack-years: 50 how long ago did patient quit smokin years ago alcohol intake: never substance use type: does not use caffeine: Yes Type: coffee and tea Number of servings: 6 ROS ROS Narrative Admission Review of Systems: CONSTITUTIONAL: No weight loss, fever, chills, + weakness or fatigue. HEENT: Eyes: No visual loss, blurred vision, double vision or yellow sclerae. Ears, Nose, Throat: No hearing loss, sneezing, congestion, runny nose or sore throat. SKIN: No rash or itching, lesions, wounds except + occasional stage ecchymoses, abrasions. CARDIOVASCULAR: + Chronic lower extremity edema, chest pain. No palpitations, orthopnea, syncopal event. RESPIRATORY: + Dyspnea. No cough or sputum, wheezing, hemoptysis. GASTROINTESTINAL: + Intermittent left groin pain. No nausea, emesis, diarrhea, severe constipation, bright red blood per rectum, melanotic stools. GENITOURINARY: + Intermittent left groin pain. No dysuria, frequency, urgency or retention. NEUROLOGICAL: + Left lower than right bilateral lower extremity and left-sided upper extremity as well as facial paresthesias in addition to LLE weakness. No headache, paralysis, ataxia, focal weakness, change in bowel or bladder control, seizure. MUSCULOSKELETAL: + muscle, back pain, joint pain or stiffness. HEMATOLOGIC: + Chronic anemia, easy bleeding/bruising, current bright red blood per rectum intermittently as noted. LYMPHATICS: No enlarged nodes. No history of splenectomy. PSYCHIATRIC: + History of anxiety and depression. ENDOCRINOLOGIC: + Reported diaphoresis. No cold or heat intolerance. No polyuria or polydipsia. ALLERGIES: + History of asthma, allergic rhinitis. Vital Signs Vital Signs Vital Signs: 03/16/25 17:09 03/16/25 17:29 03/16/25 17:29 Temperature 97.7 F L Temperature Source Oral Pulse Rate 80 73 Respiratory Rate 24 H 15 Blood Pressure 130/82 H 130/82 H Blood Pressure Mean 98 98 Pulse Ox 97 95 Oxygen Delivery Method Room Air Room Air Room Air 03/16/25 17:55 03/16/25 18:25 03/16/25 18:30 Temperature Temperature Source Pulse Rate 78 73 74 Respiratory Rate 15 18 16 Blood Pressure 119/89 H 120/76 120/73 Blood Pressure Mean 99 90 88 Pulse Ox 96 95 96 Oxygen Delivery Method Room Air Room Air Room Air Weight Weight: 219 lb 9.6 oz Body Mass Index (BMI) 32.4 Physical Exam Narrative Physical Examination: General: Awake, alert, oriented x 3 and cooperative, seated upright in the ED bed in no apparent distress, fatigued. Skin: Normal color, normal turgor, no icterus, no cyanosis except occasional stage ecchymoses, abrasion. HEENT: AT/NC, EOMI, PERRLA, MMM, no carotid bruits, difficult to discern JVD given thickened neck. Lungs: Mildly diminished, greater bases, poor effort, no rales, ronchi or wheezing. Heart: Regular rate and rhythm; no gallop, rub audible. Abdomen: Soft, obese, including in the left groin where patient reported intermittent pain NTTP, difficult to assess distention given habitus, distant normal BS, no appreciated HSM. Extremities: No cyanosis, no clubbing, mild ankle to proximal manning not markedly pitting chronic edema. Neurological: Patient awake, alert, oriented as noted, cognitive function intact; pupils equally reactive to light and accommodation, cranial nerves grossly normal aside from left-sided facial paresthesias, moving all 4 extremities except patient does have left lower extremity significant weakness with inability to maintain leg upward and fall to bed before count, unable to perform [id number] with the left lower extremity, paresthesias include to the left face, left upper extremity and bilateral lower extremity although left greater than right on the lower extremity component, equivocal Babinski, finger-nose bilaterally intact, no demonstrated aphasia at this time. Psychiatric: Affect appears fatigued otherwise normal, no acute evidence of depressive or anxiety feelings but does have underlying history. Results Lab / Micro Data 03/16/25 17:38 03/16/25 17:38 Labs: Laboratory Results - last 24 hr 03/16/25 17:38: WBC 6.0, RBC 4.20 L, Hgb 11.8 L, Hct 37.8 L, MCV 90.0, MCH 28.1, MCHC 31.2 L, RDW Std Deviation 49.5 H, RDW Coeff of Adrian 15.0 H, Plt Count 135 L, MPV 12.8 H, Immature Gran % (Auto) 0.300, Neut % (Auto) 66.9, Lymph % (Auto) 19.2, Ogle % (Auto) 12.1 H, Eos % (Auto) 1.0, Baso % (Auto) 0.5, Absolute Neuts (auto) 4.0, Absolute Lymphs (auto) 1.16, Nucleated RBC % 0, PT 17.3 H, INR 1.4, APTT 31.8, Sodium 133, Potassium 4.2, Chloride 99, Carbon Dioxide 24.5, Anion Gap 9, BUN 22 H, Creatinine 1.46 H, Estim Creat Clear Calc 47.74 L, Est GFR (MDRD) Non-Af 49 L, BUN/Creatinine Ratio 14.7, Glucose 141 H, Calcium 8.4, T roponin T High Sens 18 D Imaging Radiology Impression Brain CT 03/16/25 17:25 IMPRESSION: 1. No intracranial hemorrhage. No mass effect or midline shift. 2. Chronic involutional and ischemic gliotic white matter changes. CT is insensitive for early evaluation of acute stroke. If there is clinical concern for acute ischemia, an MRI may be considered. Stroke Alert: The critical findings in the findings and impression above were relayed directly by me by telephone to Isael Bernabe on 03/16/2025 at 5:45 p.m. EST with readback verification. Reading Location: [facility] Head/Neck CTA 03/16/25 17:25 IMPRESSION: Unremarkable CT angiogram of the head and neck with no evidence of hemodynamically significant stenosis or occlusion. Reading Location: [facility] Chest X-Ray 03/16/25 18:15 IMPRESSION: No Acute Findings. Reading Location: [facility] Assessment & Plan Assessment/Plan (1) CVA (cerebral vascular accident): PLAN: Plan The patient is a 79 y/o M w/ PMHx: Obesity, Chronic anemia, CKD stage III unclear subtype or GFR trending, Thrombocytopenia, Asthma/COPD, HFpEF, Anxiety and Depression, Diabetes mellitus type II, PAF, Hx TIA, MATTHEW, CAD w/ STEMI s/p PCI, Former tobacco use, Hypothyroidism who presents to the [facility] ED on 03/16/2025 with onset of chest discomfort beginning the day prior however he did not contact EMS until this evening and while in the ambulance just prior to arrival had bilateral lower extremity numbness however left greater than right in addition to the left face and left arm with some improvement to the right lower extremity paresthesias but ongoing changes to the left side. #1. Bilateral lower extremity left greater than right paresthesias, LUE/L facial paresthesias with LLE weakness with history of previous TIA concerning for possible current TIA/CVA: Will admit to PCU, will obtain MRI Brain, given recent echocardiogram within less than 2 months plan will defer repeat especially given patient is on chronic anticoagulant therapy, PT/OT/Speech/Nutrition evaluation per protocol. Will allow permissive HTN, maintain on Plavix, temporally holding Xarelto until assessment of infarct volume to avoid risk of hemorrhagic conversion, continue home statin w/ AM FLP, fall precautions. Mag, TSH, FLP, HgbA1c requested. Maintain on fall and aspiration precautions. Will continue neurology consultation. #2. CAD with chest discomfort: s/p previous STEMI, most recent cardiac catheterization noted 01/10/2025 at [facility] thus lower suspicion for acute concern as catheterization with less than 50% coronary artery disease angiographically noted with medical therapy at that point and previous to this on 11/30/24 with demonstrated subacute stent thrombosis the proximal RCA status post 1 angioplasty as well as thrombus embolization of the right posterolateral ventricle branch status post 2 new drug-eluting stents with Plavix discontinued and transition to Brilinta and prior to this history PCI 2006, 2007, 2018 in addition to 2019. Will continue cautiously Plavix, statin, holding all hypertensive regimen given #1 with lower BP as noted. Will maintain monitored bed to assure no acute myocardial infarction with serial cardiac enzymes and EKGs. Magnesium level requested, FLP in a.m., trend EKGs as needed. As noted temporally holding Xarelto pending MRI of the brain for assessment of infarct volume, add back once clinically appropriate. #3. HFpEF: Most recent echocardiogram at [facility] 01/09/2025 with systolic function severely reduced, EF 30 to 35%, severe diffuse hypokinesis, estimated right atrial pressure 3 mmHg. Just previous to this patient with echocardiogram on 12/15/2024 with normal LV size with mild concentric LV hypertrophy and EF 48%, mid anterior inferior basal segment moderately severely hypokinetic, normal RV size, normal systolic function, small less than 1.0 cm pericardial effusion. Will continue patient Plavix, Ranexa, statin therapy, temporarily holding spironolactone, Coreg, losartan, Lasix for permissive hypertension given acute presentation as noted, add back once appropriate. As noted below temporarily holding Xarelto pending MRI of the brain for assessment of infarct volume. #4. Thrombocytopenia, appears intermittent chronic component upon lab review, unclear etiology: Admission platelets 135, previous to this has varied and occasionally been normal however when thrombocytopenic ranging 90-1 40 range, continue to trend. #5. Chronic normocytic anemia: Admission hemoglobin 11.8, MCV 90, baseline hemoglobin vacillates but primarily 11-12 range, will continue to trend. #6. Chronic Kidney Disease Stage III, unclear subtype per GFR trend: Admission BUN/Cr 22/1.46, GFR 49, baseline renal function primarily 1.2-1.5, repeat BMP in AM. #7. PAF: Will temporally hold Xarelto until MRI of the brain obtained to determine infarct volume per neurology recommendation. Additionally, temporarily holding Coreg for permissive hypertension, add back once clinically appropriate. #8. Chronic COPD/asthma with allergic rhinitis: Per current list does not appear to be on regimen, will maintain on PRN albuterol, HOB, IS parameters, continue home loratadine regimen. #9. Diabetes mellitus type II: Hold oral home regimen, continue home insulin regimen, maintain on every 6 hours accu checks w/ ISS. #10. Hypothyroidism: Will continue patient on levothyroxine regimen, TSH requested. #11. Hypertension: Will maintain permissive HTN stroke protocol, will have as needed agents per stroke protocol. #12. Hyperlipidemia: Will continue patient on statin therapy. FLP in AM. #13. Allergic rhinitis: Will continue patient home cetirizine regimen. #14. Former tobacco usage: Encourage continued tobacco cessation. #15. Anxiety and depression: Will continue patient home fluoxetine and mirtazapine regimen. #16. MATTHEW: CPAP q HS. #17. GERD with history of previous GI bleed: Will maintain on PPI and sucralfate home regimen #18. Obesity: Weight loss and lifestyle changes encouraged. #19. DVT prophylaxis: Per neurology recommendation will temporarily hold Xarelto until MRI of the brain obtained to determine infarct volume. SCDs. #20. CODE status: Patient HCPOA is his who is present and living will is currently in place. Discussed CODE status at length including difference between FULL code, DNR-CCA and DNR-CC status. Following discussions about the differences in these status, requested continutation Full Code status. Advanced Care Planning Face to Face Time: 16 minutes. Charges/Coding Visit Charges Inpatient E&M: 31236 Init Hosp L3 Procedures Hospitalists Procedures: 81267 Advncd Care Plan 30 Min
--- OUTSIDE RECORDS SUMMARY | 2025-03-16 19:56 | XMS RPT_ITS | CCD ---
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 Marycarmen Rodriguez Referring Provider [phone] Mike PEREA, YRN Laguna Attending Provider Dr. Darnell Corral Attending Provider Mike FLAG MAKER, FLAG MAKER-C Luz Elena Referring Provider Mike FLAG MAKER, FLAG MAKER-C Luz Elena Other Provider [phone] Dr. John Palacios Attending Provider [phone] Mike FLAG MAKER, FLAG MAKER-C Luz Elena Referring Provider Dr. Marycarmen Rodriguez Primary Care Provider [phone] Dr. Marycarmen Rodriguez Referring Provider Mike FLAG MAKER, FLAG MAKER-C Luz Elena Attending Provider Dr. Zen East Attending Provider Dr. Marycarmen Rodriguez Primary Care Provider [phone] Dr. Marycarmen Rodriguez Referring Provider Dr. Merritt Persaud Attending Provider PARISH Youssef Attending Provider Mike PEREA, FLAG MAKER-C Luz Elena Attending Provider Dr. John Palacios [...] Provider Unavailable Dr. Pardeep Hall Emergency Provider [phone] Dr. Alka Leo Admit Provider Dr. Alka Leo Attending Provider Dr. Alka Leo Other Provider Dr. Shaan Santos Attending Provider Dr. Shaan Santos Other Provider Dr. Aimee Cummins Attending Provider Mike FLAG MAKER, FLAG MAKER-C Luz Elena Attending Provider Adina Vallejo Attending [...] Dr. Marycarmen Rodriguez DO Attending Provider Beto FLAG MAKER-C, Gustabo Gao Attending Provider Beto FLAG MAKER-C, Gustabo H Referring Provider Justina FLAG MAKER-CMarni Attending Provider Justina FLAG MAKER-CMarni Referring Provider Dr. Marycarmen Rodriguez DO Primary [...] Marly DO, Dr. Dow Referring Provider Brendon FLAG MAKER-CMaren Attending Provider Brendon FLAG MAKER-C, Maren Clarke Referring Provider [facility] , Dr. Zaldivar Attending Provider Pauline PALOMO, Dr. Guy Attending Provider Pauline PALOMO, Dr. Guy Referring Provider Roof FLAG MAKER-C, Gustabo Gao Other Provider Roof FLAG MAKER-C, Gustabo H Attending Provider Marly DO, Dr. Dow Primary Care Provider Marly DO, Dr. Dow Attending Provider Marly DO, Dr. Dow Primary Care Provider Horn FLAG MAKER-C, Marni Attending Provider Justina FLAG MAKER-C, Marni Referring Provider Marly DO, Dr. Dow Referring Provider Roof FLAG MAKER-C, Gustabo Gao Referring Provider Jennifer PALOMO, Dr. Lucas Attending Provider Unavail bear Hay MD, Dr. Garcia Attending Provider MarlyDr. Marycarmen vera DO Primary Care Provider Justina FLAG MAKER-CMarni Attending Provider Justina FLAG MAKER-CMarni Referring Provider MarlyDr. Marycarmen vera DO Referring Provider Brendon FLAG MAKER-CMaren Attending Provider Brendon FLAG MAKER-CMaren Referring Provider Dr. Marycarmen Rodriguez DO Attending Provider Pauline PALOMO, Dr. Guy Attending Provider Pauline PALOMO, Dr. Guy Referring Provider Roof FLAG MAKER-C, Gustabo H Other Provider Roof FLAG MAKER-C, Gustabo H Attending Provider Roof FLAG MAKER-C, Gustabo H Referring Provider Jennifer PALOMO, Dr. Lucas Attending Provider Unavailab bear Hay MD, Dr. Garcia Attending Provider Isael Bernabe MD Emergency Provider Jose Armando PALOMO, Dr. Garcia Admit Provider Jose Armando PALOMO, Dr. Garcia Referring Provider Keyana CATHERINE, Dr. Rosario Admit Provider Dr. Abraham Ridley DO Attending Provider Dr. Marycarmen Rodriguez DO Primary Care Provider Horn FLAG MAKER-C, Marni Attending Provider Justina FLAG MAKER-C, Marni Referring Provider Isael Bernabe MD Attending [...] Dr. Acevedo Other Provider Unavailable Kayli PALOMO, Ernestnia Other Provider Unavailable Dr. Abraham Ridley DO [...] Provider Gopal PALOMO, Dr. Shipman Other Provider [phone] Talita PALOMO, Dr. Johnson Attending Provider Unavailjose Herron MD, Dr. Shipman Attending Provider Talita [...] Ele CATHERINE, Dr. Dow Other Provider Sherrie FLAG MAKER-C, Tess Attending Provider Shweta PALOMO, Dr. Nix Attending Provider Gareth PALOMO, Dr. Vera Attending Provider Unavailab Inessa PALOMO, Dr. Vera Referring Provider Flory Wylie MD, Dr. Vera Emergency Provider Unavailab Maria Fernanda CATHERINE, Dr. Abebe Emergency Provider Ahmet PALOMO, Dr. Alka Solorzano Admit Provider Ahmet PALOMO, Dr. Alka Solorzano Other Provider Darshan PALOMO, Dr. Aguirre Other Provider Attila CATHERINE, Dr. Scott Other Provider Amos FLAG MAKER-C, Karrie Other Provider Kyle FLAG MAKER-C, Opal Other Provider Lois Grullon Other Provider Al PALOMO, Dr. Eladio Us Attending Provider Al PALOMO, Dr. Eladio Us Other Provider Dr. Tyler Aiken DO Attending Provider Torrey CATHERINE, Dr. Garduno Emergency Provider [phone] JARED CHOWDARY MD Consulting Unavailable PATRIC PALOMO, DR MURPHY Admitting Jason SPIVEY MD, DR MURPHY Attending Jason JACKSON MD, ISREAL Consulting Unavailable MARLEE PALOMO, TANNER Malone Consulting Unavailable JULIUS PALOMO, DR COPELAND Consulting Unavailab Fabien CATHERINE, DR VERDUZCO Consulting Unavailable Marycarmen Rodriguez Primary Care Unavailable Eladio Melendez Attending Unavailable Timothy Sexton Consulting Unavailable White, Alka L Admitting Unavailable Attila, Tyler Consulting Unavailable Karrie Trinidad Consulting Unavailable Opal Wright Consulting Unavailable Lois Corea Consulting Unavailable White, Alka L Consulting Unavailable Alex Sanon Consulting Unavailable Alex Sanon Attending Unavailable Tom, Shaan Admitting Unavailable Shaan Santos Consulting Unavailable Marly, Marycarmen Primary Care Unavailable Marly, Marycarmen Primary Care Unavailable White, Alka L Admitting Unavailable White, Alka L Consulting Unavailable White, Alka L Attending Unavailable Nickie Danielson Attending Unavailable Jose Hay Referring Unavailable Abraham Ridley Consulting Unavailable Abraham Ridley Admitting Unavailable Marly, Marycarmen Primary Care Unavailable Elvis Olvera Consulting Unavailable Sangeeta Negro [...] José David Consulting UnavailMin Woodruff Consulting Unavailable Nick Bernard Consulting Unavailable Zay Alanis Consulting Unavailable Kristina Danielson Consulting Unavailable Ernestina Milan Consulting Unavailable Marly, Marycarmen Primary Care Unavailable Tess Balderas NP Attending Unavailable Marly, Marycarmen Primary Care Unavailable Boyd Rock Attending Unavailable Marly, Marycarmen Primary Care Unavailable Roof FLAG MAKER, Gustabo Gao Attending Unavailable Roof FLAG MAKERGustabo Referring Unavailable Opal Wright Attending Unavailable Marly, Marycarmen Primary Care Unavailable Marly, Marycarmen Referring Unavailable Isael Bernabe Attending Unavailable Marly, Marycarmen Primary Care Unavailable Roof FLAG MAKER, Gustabo Gao Attending Unavailable Roof FLAG MAKER, Gustabo H Referring Unavailable Marly, Marycarmen Primary Care Unavailable Marly, Marycarmen Primary Care Unavailable Boyd Tom Attending Unavailchula e Marly, Marycarmen Primary Care Unavailable Roof FLAG MAKER, Gustabo H Referring Unavailable Roof FLAG MAKER, Gustabo Gao Attending Unavailable Marly, Marycarmen Primary Care Unavailable Oleliane SWAIN Efewongbrittni Referring Unavailabl e Shweta SWAIN Efandrés Attending [facility]abl [facility] Unavailable Oleghe OLS, Efewongbe Attending Unavailswedish [facility] veronica [facility] Marycarmen Primary Care Unavailable GarryLupe Burtonongbe Attending Unavailchula [facility] Unavailable Mahoganye BRYNN, Efgarryongbe Attending UnavailEladio Ruby Attending Unavailable Timothy Sexton Consulting Unavailable Friend, Tyler Consulting Unavailable Karrie Trinidad Consulting Unavailable Opal Wright Consulting Unavailable Lois Corea Consulting Unavailable Alex Sanon Consulting Unavailable Eladio Melendez Consulting Unavailable Mostafa, Mickey Referring Unavailable Mosteller, Abraham Consulting Unavailable Mosteller, Abraham Admitting Unavailable Marcin Araujo Attending Unavailable [facility] Primary Care Unavailable Mostafa, Mickey Consulting Unavailable Herron, Ramonita Consulting Unavailable Mostafa, Mickey Referring Unavailable Mosteller, Abraham Admitting Unavailable Mosteller, Abraham Consulting Unavailable Alex Sanon Attending Unavailable [facility] Primary Care Unavailable Mostafa, Mickey Consulting Unavailable Herron, Ramonita Consulting Unavailable Azosuha, Samer Consulting Unavailable [facility] Primary Care Unavailable Herron, Ramonita Admitting Unavailable Marycarmen Marlow Attending Unavailable Gopal, Ramonita Consulting Unavailable Marycarmen Marlow Consulting Unavailable Jose Armando, Jose Attending Unavailable [facility] Primary Care Unavailable [facility] Primary Care Unavailable Alka Leo Referring Unavailable Aimee Cummins Attending Unavailable Lance Rodriguez Attending Unavailable Eladio Melendez Referring Unavailable Friend, Tyler Attending Unavailable Mostafa, Mickey Referring Unavailable Mosteller, Abraham Admitting Unavailable Mosteller, Abraham Consulting Unavailable Marcin Araujo Attending Unavailable [facility] Primary Care Unavailable Mostafa, Mickey Consulting Unavailable Herron, Ramonita Consulting Unavailable Alex Sanon Consulting Unavailable Enid Fayer Attending Unavailable [facility] Primary Care Unavailable Shaan Santos Consulting Unavailable Shaan Santos Attending Unavailable [facility] Primary Care Unavailable Shaan Santos Admitting Unavailable Nickie Danielson Attending Unavailable Mosteller, Abraham Consulting Unavailable Mosteller, Abraham Admitting Unavailable Jose Armando, Jose Referring Unavailable [facility] Primary Care Unavailable Elvis Olvera Consulting Unavailable Adeli, Amir Consulting Unavailable Hinduja, Faye Consulting Unavailable Sam, Petrona Consulting Unavailable Zha, Candice Consulting Unavailable Sissy, Diogenes Consulting Unavailable Carrington, Cari Consulting Unavailable Sherman Rouse Consulting Unavailable Seymour John Consulting Unavailable Jamar Tapia Consulting Unavailable Chrissy Mccallum Consulting Unavailable Michael Good Consulting Unavailable Sarah Beth Candelaria Consulting Unavailable Ridrosa, Jody Consulting Unavailable Arnav, Mhd David Consulting UnavailMin Woodruff Consulting Unavailable Joana, Nick Consulting Unavailable Zay Alanis Consulting Unavailable Kristina Danielson Consulting Unavailable Ernestina Milan Consulting Unavailable Nickie Danielson Consulting Unavailable Marly, Marycarmen Primary Care Unavailable Marly, Marycarmen Referring Unavailable Beto FLAG MAKER, Gustabo Gao Attending Unavailable Marly, Marycarmen Referring Unavailable Marly, Marycarmen Primary Care Unavailable Beto FLAG MAKER, Gustabo Gao Attending Unavailable Marly, Marycarmen Primary Care Unavailable Sherrie FLAG MAKER, Tess Attending Unavailable Marly, Marycarmen Primary Care Unavailable Sherrie FLAG MAKER, Tess Attending Unavailable Marcin Araujo Attending Unavailable Abraham Ridley Attending Unavailable Jose Hay Attending Unavailable Jose ArmandoJose Referring Unavailable Marly, Marycarmen Primary Care Unavailable Marly, Marycarmen Referring Unavailable Marly, Marycarmen Primary Care Unavailable Justina FLAG MAKER, Marni Attending Unavailable Marly, Marycarmen Primary Care Unavailable Sherrie FLAG MAKER, Tess Attending Unavailable Marly, Marycarmen Primary Care Unavailable Azosuha, Samer Consulting Unavailable Ramonita Herron Admitting Unavailable Marycarmen Marlow Attending Unavailable Ramonita Herron Consulting Unavailable Marly, Marycarmen Primary Care Unavailable Justina FLAG MAKER, Marni Referring Unavailable Justina FLAG MAKER, Marni Attending Unavailable Marly, Marycarmen Attending Unavailable Marly, Marycarmen Primary Care Unavailable Marly, Marycarmen Attending Unavailable Marly, Marycarmen Primary Care Unavailable Marly, Marycarmen Primary Care Unavailable SchwShaan crowe Attending Unavailable Marly, Marycarmen Primary Care Unavailable SchwShaan crowe Attending Unavailable GarethJody gomez Referring Unavailable Marly, Marycarmen Primary Care Unavailable Jody Servin Attending Unavailable Marly, Marycarmen Primary Care Unavailable Isael Bernabe Attending Unavailable Marly, Marycarmen Primary Care Unavailable Sherrie FLAG MAKER, Tess Attending Unavailable Marly, Marycarmen Primary Care Unavailable Justina FLAG MAKER, Marni Referring Unavailable Justina FLAG MAKER, Marni Attending Unavailable Marly, Marycarmen Primary Care Unavailable Maern Olivas Referring Unavailable Maren Olivas Attending Unavailable Marly, Marycarmen Primary Care Unavailable Tor Irizarry Attending Unavailabl e Marly, Marycarmen Primary Care Unavailable Roof FLAG MAKER, Gustabo H Consulting Unavailable Brooks Carpenter Attending Unavailable BasaliBrooks Referring Unavailable Marly, Marycarmen Primary Care Unavailable Roof FLAG MAKER, Gustabo H Attending Unavailable Roof FLAG MAKER, Gustabo H Referring Unavailable Marly, Marycarmen Primary Care Unavailable Roof FLAG MAKER, Gustabo Gao Attending Unavailable Roof FLAG MAKER, Gustabo H Referring Unavailable Marly, Marycarmen Primary Care Unavailable Mckeon FLAG MAKER, Luz Elena Referring Unavailable Mckeon FLAG MAKER, Luz Elena Attending Unavailable Marly, Marycarmen Primary Care Unavailable Horn FLAG MAKER, Marni Attending Unavailable Brooks Carpenter Referring Unavailable BasalBrooks berman Attending Unavailable Marly, Marycarmen Primary Care Unavailable Marly, Marycarmen Attending Unavailable Marly, Marycarmen Primary Care Unavailable Maren Olivas Referring Unavailable Maren Olivas Attending Unavailable Marly, Marycarmen Primary Care Unavailable Boyd Tom Attending Unavailabl Boyd Norwood Referring Unavailabl e Marly, Marycarmen Primary Care Unavailable Marly, Marycarmen Primary Care Unavailable Jose Armando Jose Referring Unavailable Jose Armando Jose Attending Unavailable Marly, Marycarmen Primary Care Unavailable Boyd Tom Attending Unavailabl e Marly, Marycarmen Primary Care Unavailable Horn FLAG MAKER, Marni Referring Unavailable Horn FLAG MAKER, Marni Attending Unavailable Marly, Marycarmen Primary Care Unavailable Horn FLAG MAKER, Marni Attending Unavailable Marly, Marycarmen Primary Care Unavailable Roof FLAG MAKER, Gustabo H Referring Unavailable Roof FLAG MAKER, Gustabo Gao Attending Unavailable GayleRussell garciaril Referring Unavailable GayleMarcin garcia Attending Unavailable Marly, Marycarmen Primary Care Unavailable Marly, Marycarmen Primary Care Unavailable Elías Valdovinos Attending Unavailable Marly, Marycarmen Primary Care Unavailable Horn FLAG MAKER, Marni Referring Unavailable Horn FLAG MAKER, Marni Attending Unavailable Roof FLAG MAKER, Gustabo H Attending Unavailable Roof FLAG MAKER, Gustabo H Referring Unavailable Marly, Marycarmen Primary Care Unavailable Marly, Marycarmen Primary Care Unavailable Boyd oTm Attending Unavailabl Ramonita Paris Attending Unavailable Roof FLAG MAKER, Gustabo H Referring Unavailable Marly, Marycarmen Primary Care Unavailable Lance Rodriguez Attending Unavailable Marly, Marycarmen Primary Care Unavailable Horn FLAG MAKER, Marni Referring Unavailable Zen East Attending Unavailable Marly, Marycarmen Primary Care Unavailable Marcin Araujo Attending Unavailable Marcin Araujo Referring Unavailable Ramonita Herron Attending Unavailable Alex Sanon Attending Unavailable Abraham iRdley Attending Unavailable Alex Sanon Attending Unavailable Alex Sanon Consulting Unavailable Marly, Marycarmen Primary Care Unavailable Zen East Attending Unavailable Horn FLAG MAKER, Marni Referring Unavailable Horn FLAG MAKER, Marni Consulting Unavailable Roof FLAG MAKER, Gustabo H Consulting Unavailable Roof FLAG MAKER, Gustabo H Referring Unavailable Marly, Marycarmen Primary Care Unavailable Jose Armando, Jose Attending Unavailable Roof FLAG MAKER, Gustabo Gao Attending Unavailable Marly, Marycarmen Referring Unavailable Marly, Marycarmen Primary Care Unavailable Marly, Marycarmen Primary Care Unavailable [place] FLAG MAKER, Tess Attending Unavailable Marly, Marycarmen Referring Unavailable Jose Armando, Jose Attending Unavailable Marly, Marycarmen Primary Care Unavailable Roof FLAG MAKER, Gustabo Gao Attending Unavailable Marly, Marycarmen Referring Unavailable Marly, Marycarmen Primary Care Unavailable Maren Olivas Attending Unavailable Marly, Marycarmen Referring Unavailable Marly, Marycarmen Primary Care Unavailable Marly, Marycarmen Referring Unavailable Roof FLAG MAKER, Gustabo Gao Attending Unavailable Marly, Marycarmen Primary Care Unavailable Marly, Marycarmen Primary Care Unavailable Marly, Marycarmen Referring Unavailable Jose Armando, Jose Attending Unavailable Marly, Marycarmen Primary Care Unavailable [place] FLAG MAKER, Tess Attending Unavailable Marly, Marycarmen Primary Care Unavailable [place] FLAG MAKER, Tess Attending Unavailable Marly, Marycarmen Primary Care Unavailable Roof FLAG MAKER, Gustabo Gao Attending Unavailable Marly, Marycarmen Referring Unavailable Marly, Marycarmen Referring Unavailable Jose Armando, Jose Attending Unavailable Marly, Marycarmen Primary Care Unavailable Marly, Marycarmen Referring Unavailable Marly, Marycarmen Primary Care Unavailable Maren Olivas Attending Unavailable Marly, Marycarmen Referring Unavailable Marly, Marycarmen Attending Unavailable Marly, Marycarmen Primary Care Unavailable Jose Armando, Jose Admitting Unavailable Jose Armando, Jose Referring Unavailable Jose Armando, Jose Attending Unavailable Marly, Marycarmen Primary Care Unavailable Marly, Marycarmen Primary Care Unavailable Horn FLAG MAKER, Marni Attending Unavailable Horn FLAG MAKER, Marni Referring Unavailable Allergies Allergy Classification Reported Allergen(s) Allergy Type Date of Onset Reaction(s) Facility (1 source) Doxycycline; Translations: [doxycycline] Drug Allergy [facility] (1 source) Ticagrelor Drug Allergy 03-05-2025 [facility] Medications Current Medications Medication Drug Class(es) [...] 10:49am DEPRESSION take 1 capsule by mo cah twice daily FLUoxetine (PROZAC) 40 MG capsule [...] 1 Fills Dispensed: 0 lactobacillus rhamnosus gg [id number] unt oral capsule (1 source) Start: 01-01-2025 [...] stomach Start: 08-07-2016 take 1 tablet by sraa th twice daily pantoprazole (PROTONIX) 40 MG [...] as needed 0 April 17, 2024 1:00am [id number] 200 actuat albuter ol 0.09 mg/actuat metered [...] extended release oral tablet (20 sources) beta-Adrenergic Jefrfey Start: 01-09-2025 End: 01-09-2025 take 1 tablet [...] Problem Date Documented Da te Episodic/Chronic Acute myocardial infarction (20 sources) Myocardial infarction; [...] heart disease (20 sources) Coronary arteriosclerosis in [place] artery; Translations: [Preinfarction syndrome] Onset: 5 10-15-2016 [...] multiple wires and attempts. Procedure aborted. 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 and Stent-Mid RCA x 2 Multi Link [...] Hypertensive disorder; Translations: [Essential (primary) hypertension] Onset: 5 06-17-2015 Chronic Fluid and electrolyte disorders (20 [...] [Disorder of kidney and ureter, unspecified] Onset: Episodic Other injuries and conditions due to [...] Onset: 5 Episodic Other lower respiratory disease (9 sources) Other forms of dyspnea; Translations: [Other respiratory abnormalities] Onset: 5 Episodic Other lower respiratory disease (20 sources) Wheezing; Translations: [Wheezing] 09-20-2024 Episodic Other lower respiratory disease (2 sources) Shortness of breath; Translations: [Shortness of breath] Onset: Episodic Other nutritional; endocrine; and metabolic disorders [...] Translations: [Obesity, unspecified] Onset: 4 Chronic Other nutritional; endocrine; and metabolic disorders (1 source) Morbid (severe) obesity due to excess calories; Translations: [Morbid (severe) obesity due to excess calories] Onset: 5 Chronic Other nutritional; endocrine; and metabolic disorders (1 source) Body mass index (BMI) 36.0-36.9, adult; Translations: [Body mass index [BMI] 36.0-36.9, adult] Onset: 5 Chronic Other screening for suspected conditions (not [...] apnea; 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] Onset: Chronic Residual codes; unclassified (20 sources) Bilateral [...] [Acidosis, unspecified] Onset: 5 Unclassified (1 source) Obesity, class 2; Translations: [Obesity, class 2] Onset: 5 Unclassified (1 source) Other pericardial effusion (noninflammatory); Translations: [Other pericardial effusion (noninflammatory)] Onset: 5 Unclassified (1 source) Ventricular tachycardia, unspecified; Translations: [Ventricular tachycardia, unspecified] Onset: 5 Unclassified (1 source) Other ventricular tachycardia; Translations: [Other ventricular tachycardia] Onset: Viral infection (20 sources) Disease caused by 2019-nCoV; Translations: [COVID-19] Episodic Past or Other Problems Problem Classification Problem Date Documented Date Episodic/Chronic Acute and unspecified renal failure (20 sources) [id number] renal failure; Translations: [Acute kidney failure, unspecified] Onset: 12-03-2024 12-01-2024 Episodic Cardiac dysrhythmias (20 sources) Palpitations; Translations: [Palpitations] Onset: 10-25-2024 Episodic Deficiency and other anemia (2 sources) Anemia, unspecified; Translations: [Anemia, unspecified] Onset: 10-05-2024 Episodic Other lower respiratory disease (1 source) Wheezing; Translations: [Wheezing] Onset: 10-31-2024 Episodic Other nervous system disorders (10 sources) Numbness of upper limb; Translations: [Anesthesia of skin] Onset: 06-17-2015 06-17-2015 Episodic Other non-traumatic joint disorders (10 sources) Shoulder pain; Translations: [Pain in right shoulder] Onset: 02-19-2016 02-19-2016 Episodic Other non-traumatic joint disorders (1 source) Pain in left shoulder; Translations: [Pain in left shoulder] Onset: 11-24-2024 Episodic Residual codes; unclassified (2 sources) H/O: anticoagulant therapy; Translations: [DVT prophylaxis] Onset: 01-25-2015 01-25-2015 Episodic Residual codes; unclassified (8 sources) Patient encounter status; Translations: [Encounter for prophylactic measures, unspecified] Onset: 01-25-2015 01-25-2015 Episodic Results Test Name Value Interpretation Reference Range Facility Cardiology Visit Reporton Cardiology Visit Report [facility] .Auto Diffon 01-10-2025 Basophil, Absolute 0.0 10 3/mcL Normal 0.0-0.3 [facility] Comment on above: Performed By: #### D GLENDY #### [address] [address] Basophils/100 WBC (Bld) 0.5 % Normal 0.0-2.5 [facility] Comment on above: Performed By: #### D GLENDY #### [address] [address] Eosinophil, Absolute 0.1 10 3/mcL Normal 0.0-0.7 [facility] Comment on above: Performed By: #### D GLENDY #### [address] [address] Eosinophils/100 WBC (Bld) 1.2 % Normal 0.0-6.0 [facility] Comment on above: Performed By: #### D GLENDY #### [address] [address] Lymphocyte, Absolute 1.0 10 3/mcL Normal 0.9-4.3 [facility] Comment on above: Performed By: #### D GLENDY #### [address] [address] Lymphocytes/100 WBC (Bld) 13.1 % Low 20.0-40.0 [facility] Comment on above: Performed By: #### D GLENDY #### [address] [address] Monocyte, Absolute 0.9 10 3/mcL Normal 0.1-1.4 [facility] Comment on above: Performed By: #### D GLENDY #### [address] [address] Monocytes/100 WBC (Bld) 11.2 % Normal 2.0-13.0 [facility] Comment on above: Performed By: #### D GLENDY #### [address] [address] Neutrophils/100 WBC (Bld) 74.0 % Normal 50.0-75.0 [facility] Comment on above: Performed By: #### D GLENDY #### [address] [address] .GFRon 01-10-2025 Estimated Glomerular Filtration Rate 50 ml/min/1.73sqm Normal [facility] Comment on above: Result [...] HFP, ANEU, ADIFF, MG, CBC, BMP #### [address] [address] .NEUABSon 01-10-2025 Neutrophil, Absolute 5.6 10 3/mcL Normal 2.3-8.1 [facility] Comment on above: Performed By: #### G FR, HFP, ANEU, ADIFF, MG, CBC, BMP #### [place] [id number] [facility] BUN/Creatinine Ratio 9.2 ratio Low 10.0-22.0 [facility] Comment on above: Performed By: #### G FR, HFP, ANEU, ADIFF, MG, CBC, BMP #### [place] [address] Calcium [Mass/Vol] 9.2 mg/dL Normal 8.7-10.4 [facility] Comment on above: Performed By: #### G FR, HFP, ANEU, ADIFF, MG, CBC, BMP #### [address] [address] Chloride [Moles/Vol] 104 mmol/L Normal 98-110 [facility] Comment on above: Performed By: #### G FR, HFP, ANEU, ADIFF, MG, CBC, BMP #### [address] [address] CO2 [Moles/Vol] 25 mmol/L Normal 22-32 [facility] Comment on above: Performed By: #### G FR, HFP, ANEU, ADIFF, MG, CBC, BMP #### [address] [address] Creatinine [Mass/Vol] 1.42 mg/dL High 0.60-1.40 [facility] Comment on above: Result Comment: Test ing performed on [employer] analyzer using enzymatic creatinine methodology. Performed By: #### G FR, HFP, ANEU, ADIFF, MG, CBC, BMP #### [address] [address] Electrolyte Balance 12.0 mEq/L Normal 4.0-15.0 [facility] Comment on above: Performed By: #### G FR, HFP, ANEU, ADIFF, MG, CBC, BMP #### [address] [address] Glucose [Mass/Vol] 151 mg/dL High 82-115 [facility] Comment on above: Performed By: #### G FR, HFP, ANEU, ADIFF, MG, CBC, BMP #### [address] [address] Potassium [Moles/Vol] 3.6 mmol/L Normal 3.5-5.0 [facility] Comment on above: Performed By: #### G FR, HFP, ANEU, ADIFF, MG, CBC, BMP #### [address] [address] Sodium [Moles/Vol] 141 mmol/L Normal 136-145 [facility] Comment on above: Performed By: #### G FR, HFP, ANEU, ADIFF, MG, CBC, BMP #### [address] [address] Urea nitrogen [Mass/Vol] 13.0 mg/dL Normal 8.0-22.0 [facility] Comment on above: Performed By: #### G FR, HFP, ANEU, ADIFF, MG, CBC, BMP #### [address] [address] CBCon 01-10-2025 Erythrocyte distribution width (RBC) [Ratio] 15.7 % High 11.5-15.5 [facility] Comment on above: Performed By: #### D GLENDY #### [address] [address] Hematocrit (Bld) [Volume fraction] 37.0 % Low 40.0-52.0 [facility] Comment on above: Performed By: #### D GLENDY #### [place] [address] Hgb 12.0 G/dL Low 13.0-17.5 [facility] Comment on above: Performed By: #### D GLENDY #### [place] [address] MCH (RBC) [Entitic mass] 28.5 pg Normal 27.0-33.0 [facility] Comment on above: Performed By: #### D GLENDY #### [place] [address] MCHC 32.4 G/dL Normal 32.0-36.0 [facility] Comment on above: Performed By: #### D GLENDY #### [place] [address] MCV (RBC) [Entitic vol] 87.9 fL Normal 81.0-100.0 [facility] Comment on above: Performed By: #### D GLENDY #### [place] [address] Platelet 171 10 3/mcL Normal 150-450 [facility] Comment on above: Performed By: #### D GLENDY #### [place] [address] Platelet mean volume (Bld) [Entitic vol] 10.8 fL High 6.4-10.5 [facility] Comment on above: Performed By: #### D GLENDY #### [place] [address] RBC 4.21 10 6/mcL Low 4.50-6.00 [facility] Comment on above: Performed By: #### D GLENDY #### [place] [address] WBC 7.6 10 3/mcL Normal 4.5-10.8 [facility] Comment on above: Performed By: #### D GLENDY #### [place] [address] HFPon 01-10-2025 Bili Indirect 0.5 mg/dL Normal 0.1-10.0 [facility] Comment on above: Performed By: #### G FR, HFP, ANEU, ADIFF, MG, CBC, BMP #### [place] [address] Albumin Level 2.9 G/dL Low 3.2-4.8 [facility] Comment on above: Performed By: #### G FR, HFP, ANEU, ADIFF, MG, CBC, BMP #### [place] [address] Albumin/Globulin [Mass ratio] 0.8 {ratio} Low 0.9-1.6 [facility] Comment on above: Performed By: #### G FR, HFP, ANEU, ADIFF, MG, CBC, BMP #### [place] [address] ALP [Catalytic activity/Vol] 128 U/L High 38-126 [facility] Comment on above: Performed By: #### G FR, HFP, ANEU, ADIFF, MG, CBC, BMP #### [place] [address] ALT [Catalytic activity/Vol] 56 U/L High 12-55 [facility] Comment on above: Performed By: #### G FR, HFP, ANEU, ADIFF, MG, CBC, BMP #### [place] [address] AST [Catalytic activity/Vol] 27 U/L Normal 8-34 [facility] Comment on above: Performed By: #### G FR, HFP, ANEU, ADIFF, MG, CBC, BMP #### [place] [address] Bili Direct 0.2 mg/dL Normal 0.0-0.4 [facility] Comment on above: Result Comment: Use of this assay is not recommended for patients undergoing treatment with eltrombopag due to the potential for falsely elevated results. Performed By: #### G FR, HFP, ANEU, ADIFF, MG, CBC, BMP #### [place] [address] Bili Total 0.70 mg/dL Normal 0.20-1.20 [facility] Comment on above: Result Comment: Use of this assay is not recommended for patients undergoing treatment with eltrombopag due to the potential for falsely elevated results. Performed By: #### G FR, HFP, ANEU, ADIFF, MG, CBC, BMP #### [address] [address] Globulin 3.5 G/dL Normal 2.5-4.2 [facility] Comment on above: Performed By: #### G FR, HFP, ANEU, ADIFF, MG, CBC, BMP #### [address] [address] Total Protein 6.4 G/dL Normal 5.7-8.2 [facility] Comment on above: Performed By: #### G FR, HFP, ANEU, ADIFF, MG, CBC, BMP #### [address] [address] LABORATORYOrdered By: Danny Harrison on 01-10-2025 Blood Glucose Testing Reason Routine (01/10/25 11:14 AM) [facility] Work Phone: Glucose [Mass/Vol] 151 mg/dL High 82 - 115 mg/dL [facility] Work Phone: LABORATORYOrdered By: Kristyn William on 01-10-2025 Blood Glucose Testing Reason Routine (01/10/25 7:34 AM) [facility] Work Phone: Glucose [Mass/Vol] 133 mg/dL High 82 - 115 mg/dL [facility] Work Phone: LABORATORYOrdered By: SYSTEM SYSTEM [...] 25 mmol/L Normal 22 - 32 mEq/L ADM SS Creatinine [Mass/Vol] 1.42 mg/dL High 0.60 - 1.40 mg/dL ADM SS Comment on above: Interpretive Data: T esting performed on [employer] analyzer using enzymatic creatinine methodology. Electrolyte Balance [...] 3.5 G/dL Normal 2.5 - 4.2 G/dL AH ADM SS Glucose [Mass/Vol] 151 mg/dL High 82 - 115 mg/dL AH ADM SS Hematocrit (Bld) [Volume fraction] 37.0 [...] 4.21 106/mcL Low 4.50 - 6.00 10^6/mcL Workflow SS Sodium [Moles/Vol] 141 mmol/L Normal 136 - 145 mEq/L AH ADM SS Urea nitrogen [Mass/Vol] 13.0 mg/dL Normal 8.0 - 22.0 mg/dL AH ADM SS Urea nitrogen/Creatinine [Mass ratio] 9.2 ratio Low 10.0 - 22.0 ratio AH ADM SS WBC (Bld) [#/Vol] 7.6 103/mcL Normal 4.5 - 10.8 10^3/mcL Workflow SS MGon 01-10-2025 Magnesium [Mass/Vol] 2.2 mg/dL Normal 1.6-2.4 [facility] Comment on above: Performed By: #### G FR, HFP, ANEU, ADIFF, MG, CBC, BMP #### [address] [address] .Auto Diffon 01-09-2025 Basophil, Absolute 0.0 10 3/mcL Normal 0.0-0.3 [facility] Comment on above: Performed By: #### D GLENDY #### [address] [address] Basophils/100 WBC (Bld) 0.3 % Normal 0.0-2.5 [facility] Comment on above: Performed By: #### D GLENDY #### [address] [address] Eosinophil, Absolute 0.1 10 3/mcL Normal 0.0-0.7 [facility] Comment on above: Performed By: #### D GLENDY #### [address] [address] Eosinophils/100 WBC (Bld) 1.3 % Normal 0.0-6.0 [facility] Comment on above: Performed By: #### D GLENDY #### [address] [address] Lymphocyte, Absolute 1.1 10 3/mcL Normal 0.9-4.3 [facility] Comment on above: Performed By: #### D GLENDY #### [address] [address] Lymphocytes/100 WBC (Bld) 19.1 % Low 20.0-40.0 [facility] Comment on above: Performed By: #### D GLENDY #### [address] [address] Monocyte, Absolute 0.7 10 3/mcL Normal 0.1-1.4 [facility] Comment on above: Performed By: #### D GLENDY #### [address] [address] Monocytes/100 WBC (Bld) 12.4 % Normal 2.0-13.0 [facility] Comment on above: Performed By: #### D GLENDY #### [address] [address] Neutrophils/100 WBC (Bld) 66.9 % Normal 50.0-75.0 [facility] Comment on above: Performed By: #### D GLENDY #### [address] [address] .GFRon 01-09-2025 Estimated Glomerular Filtration Rate 56 ml/min/1.73sqm Normal [facility] Comment on above: Result [...] results. Performed By: #### D GLENDY #### [place] [address] .NEUABSon 01-09-2025 Neutrophil, Absolute 3.9 10 3/mcL Normal 2.3-8.1 [facility] Comment on above: Performed By: #### D GLENDY #### [address] [address] BMPon 01-09-2025 BUN/Creatinine Ratio 9.2 ratio Low 10.0-22.0 [facility] Comment on above: Performed By: #### D GLENDY #### [place] [id number] Calcium [Mass/Vol] 8.8 mg/dL Normal 8.7-10.4 [facility] Comment on above: Performed By: #### D GLENDY #### [place] [id number] Chloride [Moles/Vol] 104 mmol/L Normal 98-110 [facility] Comment on above: Performed By: #### D GLENDY #### [place] [id number] CO2 [Moles/Vol] 28 mmol/L Normal 22-32 [facility] Comment on above: Performed By: #### D GLENDY #### [place] [id number] Creatinine [Mass/Vol] 1.30 mg/dL Normal 0.60-1.40 [facility] Comment on above: Result Comment: Test ing performed on [employer] analyzer using enzymatic creatinine methodology. Performed By: #### D GLENDY #### [place] [address] Electrolyte Balance 9.0 mEq/L Normal 4.0-15.0 [facility] Comment on above: Performed By: #### D GLENDY #### [place] [id number] Glucose [Mass/Vol] 103 mg/dL Normal 82-115 [facility] Comment on above: Performed By: #### D GLENDY #### [place] [id number] Potassium [Moles/Vol] 3.3 mmol/L Low 3.5-5.0 [facility] Comment on above: Performed By: #### D GLENDY #### [place] [address] Sodium [Moles/Vol] 141 mmol/L Normal 136-145 [facility] Comment on above: Performed By: #### D GLENDY #### [place] [address] Urea nitrogen [Mass/Vol] 12.0 mg/dL Normal 8.0-22.0 [facility] Comment on above: Performed By: #### D GLENDY #### [place] [address] CBCon 01-09-2025 Erythrocyte distribution width (RBC) [Ratio] 15.7 % High 11.5-15.5 [facility] Comment on above: Performed By: #### G FR, CBC, ANEU, ADIFF, MG, BMP, HFP #### [place] [address] Hematocrit (Bld) [Volume fraction] 33.1 % Low 40.0-52.0 [facility] Comment on above: Performed By: #### G FR, CBC, ANEU, ADIFF, MG, BMP, HFP #### [place] [address] Hgb 10.9 G/dL Low 13.0-17.5 [facility] Comment on above: Performed By: #### G FR, CBC, ANEU, ADIFF, MG, BMP, HFP #### [place] [address] MCH (RBC) [Entitic mass] 29.1 pg Normal 27.0-33.0 [facility] Comment on above: Performed By: #### G FR, CBC, ANEU, ADIFF, MG, BMP, HFP #### [place] [address] MCHC 32.8 G/dL Normal 32.0-36.0 [facility] Comment on above: Performed By: #### G FR, CBC, ANEU, ADIFF, MG, BMP, HFP #### [place] [address] MCV (RBC) [Entitic vol] 88.8 fL Normal 81.0-100.0 [facility] Comment on above: Performed By: #### G FR, CBC, ANEU, ADIFF, MG, BMP, HFP #### [place] [address] Platelet 150 10 3/mcL Normal 150-450 [facility] Comment on above: Performed By: #### G FR, CBC, ANEU, ADIFF, MG, BMP, HFP #### [place] [address] Platelet mean volume (Bld) [Entitic vol] 11.2 fL High 6.4-10.5 [facility] Comment on above: Performed By: #### G FR, CBC, ANEU, ADIFF, MG, BMP, HFP #### [place] [address] RBC 3.73 10 6/mcL Low 4.50-6.00 [facility] Comment on above: Performed By: #### G FR, CBC, ANEU, ADIFF, MG, BMP, HFP #### [place] [id number] WBC 5.8 10 3/mcL Normal 4.5-10.8 [facility] Comment on above: Performed By: #### G FR, CBC, ANEU, ADIFF, MG, BMP, HFP #### [address] 01-09-2025 Bili Indirect 0.6 mg/dL Normal 0.1-10.0 [facility] Comment on above: Performed By: #### D GLENDY #### [place] [address] Albumin Level 2.8 G/dL Low 3.2-4.8 [facility] Comment on above: Performed By: #### D GLENDY #### [place] [address] Albumin/Globulin [Mass ratio] 0.8 {ratio} Low 0.9-1.6 [facility] Comment on above: Performed By: #### D GLENDY #### [place] [address] ALP [Catalytic activity/Vol] 107 U/L Normal 38-126 [facility] Comment on above: Performed By: #### D GLENDY #### [place] [id number] ALT [Catalytic activity/Vol] 69 U/L High 12-55 [facility] Comment on above: Performed By: #### D GLENDY #### [place] [address] AST [Catalytic activity/Vol] 26 U/L Normal 8-34 [facility] Comment on above: Performed By: #### D GLENDY #### [place] [address] Bili Direct 0.3 mg/dL Normal 0.0-0.4 [facility] Comment on above: Result Comment: Use of this assay is not recommended for patients undergoing treatment with eltrombopag due to the potential for falsely elevated results. Performed By: #### D GLENDY #### [place] [address] Bili Total 0.90 mg/dL Normal 0.20-1.20 [facility] Comment on above: Result Comment: Use of this assay is not recommended for patients undergoing treatment with eltrombopag due to the potential for falsely elevated results. Performed By: #### D GLENDY #### [place] [address] Globulin 3.3 G/dL Normal 2.5-4.2 [facility] Comment on above: Performed By: #### D GLENDY #### [place] [address] Total Protein 6.1 G/dL Normal 5.7-8.2 [facility] Comment on above: Performed By: #### D GLENDY #### [place] [address] LABORATORYOrdered By: Julieta Farr on 01-09-2025 Blood Glucose Testing Reason Routine (01/09/25 9:04 PM) [facility] Work Phone: Glucose [Mass/Vol] 145 mg/dL High 82 - 115 mg/dL [facility] Work Phone: LABORATORYOrdered By: SYSTEM SYSTEM on 01-09-2025 Albumin BCP dye [Mass/Vol] 2.8 G/dL Low 3.2 - 4.8 G/dL ADM SS Albumin/Globulin [Mass ratio] 0.8 {ratio} Low 0.9 - 1.6 ratio AH ADM SS ALP [Catalytic activity/Vol] 107 U/L [...] above: Interpretive Data: T esting performed on [employer] analyzer using enzymatic creatinine methodology. Electrolyte Balance [...] 10.9 G/dL Low 13.0 - 17.5 G/dL Workflow SS Lymphocytes (Bld) [#/Vol] 1.1 103/mcL Normal 0.9 - 4.3 10^3/mcL Workflow SS Lymphocytes/100 WBC (Bld) 19.1 % Low 20.0 - 40.0 % Workflow SS Magnesium [Mass/Vol] 2.1 mg/dL Normal [...] 145 mEq/L ADM SS Urea nitrogen [Mass/Vol] 12.0 mg/dL Normal 8.0 - 22.0 mg/dL ADM SS Urea nitrogen/Creatinine [Mass ratio] 9.2 ratio Low 10.0 - 22.0 ratio ADM SS WBC (Bld) [#/Vol] 5.8 103/mcL Normal 4.5 - 10.8 10^3/mcL Workflow SS MGon 01-09-2025 Magnesium [Mass/Vol] 2.1 mg/dL Normal 1.6-2.4 [facility] Comment on above: Performed By: #### D GLENDY #### [address] [address] .Auto Diffon 01-08-2025 Basophil, Absolute 0.0 10 3/mcL Normal 0.0-0.3 [facility] Comment on above: Performed By: #### G FR, CBC, ANEU, ADIFF, MG, BMP, HFP #### [address] [address] Basophils/100 WBC (Bld) 0.3 % Normal 0.0-2.5 [facility] Comment on above: Performed By: #### G FR, CBC, ANEU, ADIFF, MG, BMP, HFP #### [address] [address] Eosinophil, Absolute 0.1 10 3/mcL Normal 0.0-0.7 [facility] Comment on above: Performed By: #### G FR, CBC, ANEU, ADIFF, MG, BMP, HFP #### [address] [address] Eosinophils/100 WBC (Bld) 1.2 % Normal 0.0-6.0 [facility] Comment on above: Performed By: #### G FR, CBC, ANEU, ADIFF, MG, BMP, HFP #### [address] [address] Lymphocyte, Absolute 0.9 10 3/mcL Normal 0.9-4.3 [facility] Comment on above: Performed By: #### G FR, CBC, ANEU, ADIFF, MG, BMP, HFP #### [address] [address] Lymphocytes/100 WBC (Bld) 15.5 % Low 20.0-40.0 [facility] Comment on above: Performed By: #### G FR, CBC, ANEU, ADIFF, MG, BMP, HFP #### [address] [address] Monocyte, Absolute 0.7 10 3/mcL Normal 0.1-1.4 [facility] Comment on above: Performed By: #### G FR, CBC, ANEU, ADIFF, MG, BMP, HFP #### [address] [address] Monocytes/100 WBC (Bld) 11.6 % Normal 2.0-13.0 [facility] Comment on above: Performed By: #### G FR, CBC, ANEU, ADIFF, MG, BMP, HFP #### [address] [address] Neutrophils/100 WBC (Bld) 71.4 % Normal 50.0-75.0 [facility] Comment on above: Performed By: #### G FR, CBC, ANEU, ADIFF, MG, BMP, HFP #### [address] [address] .GFRon 01-08-2025 Estimated Glomerular Filtration Rate 57 ml/min/1.73sqm Normal [facility] Comment on above: Result [...] CBC, ANEU, ADIFF, MG, BMP, HFP #### [address] [address] .NEUABSon 01-08-2025 Neutrophil, Absolute 4.1 10 3/mcL Normal 2.3-8.1 [facility] Comment on above: Performed By: #### G FR, CBC, ANEU, ADIFF, MG, BMP, HFP #### [address] [address] [facility] BUN/Creatinine Ratio 12.5 ratio Normal 10.0-22.0 [facility] Comment on above: Performed By: #### G FR, CBC, ANEU, ADIFF, MG, BMP, HFP #### [address] [address] Calcium [Mass/Vol] 8.4 mg/dL Low 8.7-10.4 [facility] Comment on above: Performed By: #### G FR, CBC, ANEU, ADIFF, MG, BMP, HFP #### [address] [address] Chloride [Moles/Vol] 104 mmol/L Normal 98-110 [facility] Comment on above: Performed By: #### G FR, CBC, ANEU, ADIFF, MG, BMP, HFP #### [address] [address] CO2 [Moles/Vol] 26 mmol/L Normal 22-32 [facility] Comment on above: Performed By: #### G FR, CBC, ANEU, ADIFF, MG, BMP, HFP #### [address] [address] Creatinine [Mass/Vol] 1.28 mg/dL Normal 0.60-1.40 [facility] Comment on above: Result Comment: Test ing performed on [employer] analyzer using enzymatic creatinine methodology. Performed By: #### G FR, CBC, ANEU, ADIFF, MG, BMP, HFP #### [place] [id number] Electrolyte Balance 11.0 mEq/L Normal 4.0-15.0 [facility] Comment on above: Performed By: #### G FR, CBC, ANEU, ADIFF, MG, BMP, HFP #### [address] [address] Glucose [Mass/Vol] 110 mg/dL Normal 82-115 [facility] Comment on above: Performed By: #### G FR, CBC, ANEU, ADIFF, MG, BMP, HFP #### [place] [id number] Potassium [Moles/Vol] 3.2 mmol/L Low 3.5-5.0 [facility] Comment on above: Performed By: #### G FR, CBC, ANEU, ADIFF, MG, BMP, HFP #### [address] [address] Sodium [Moles/Vol] 141 mmol/L Normal 136-145 [facility] Comment on above: Performed By: #### G FR, CBC, ANEU, ADIFF, MG, BMP, HFP #### [place] [id number] Urea nitrogen [Mass/Vol] 16.0 mg/dL Normal 8.0-22.0 [facility] Comment on above: Performed By: #### G FR, CBC, ANEU, ADIFF, MG, BMP, HFP #### [place] [address] CBCon 01-08-2025 Erythrocyte distribution width (RBC) [Ratio] 15.3 % Normal 11.5-15.5 [facility] Comment on above: Performed By: #### G FR, CBC, ANEU, ADIFF, MG, BMP, HFP #### [place] [address] Hematocrit (Bld) [Volume fraction] 31.9 % Low 40.0-52.0 [facility] Comment on above: Performed By: #### G FR, CBC, ANEU, ADIFF, MG, BMP, HFP #### [place] [address] Hgb 10.6 G/dL Low 13.0-17.5 [facility] Comment on above: Performed By: #### G FR, CBC, ANEU, ADIFF, MG, BMP, HFP #### [place] [address] MCH (RBC) [Entitic mass] 28.9 pg Normal 27.0-33.0 [facility] Comment on above: Performed By: #### G FR, CBC, ANEU, ADIFF, MG, BMP, HFP #### [place] [address] MCHC 33.1 G/dL Normal 32.0-36.0 [facility] Comment on above: Performed By: #### G FR, CBC, ANEU, ADIFF, MG, BMP, HFP #### [place] [address] MCV (RBC) [Entitic vol] 87.2 fL Normal 81.0-100.0 [facility] Comment on above: Performed By: #### G FR, CBC, ANEU, ADIFF, MG, BMP, HFP #### [place] [address] Platelet 143 10 3/mcL Low 150-450 [facility] Comment on above: Performed By: #### G FR, CBC, ANEU, ADIFF, MG, BMP, HFP #### [place] [address] Platelet mean volume (Bld) [Entitic vol] 11.1 fL High 6.4-10.5 [facility] Comment on above: Performed By: #### G FR, CBC, ANEU, ADIFF, MG, BMP, HFP #### [place] [address] RBC 3.65 10 6/mcL Low 4.50-6.00 [facility] Comment on above: Performed By: #### G FR, CBC, ANEU, ADIFF, MG, BMP, HFP #### [place] [address] WBC 5.7 10 3/mcL Normal 4.5-10.8 [facility] Comment on above: Performed By: #### G FR, CBC, ANEU, ADIFF, MG, BMP, HFP #### [place] [address] HFPon 01-08-2025 Bili Indirect 0.7 mg/dL Normal 0.1-10.0 [facility] Comment on above: Performed By: #### G FR, CBC, ANEU, ADIFF, MG, BMP, HFP #### [place] [address] Albumin Level 2.6 G/dL Low 3.2-4.8 [facility] Comment on above: Performed By: #### G FR, CBC, ANEU, ADIFF, MG, BMP, HFP #### [place] [address] Albumin/Globulin [Mass ratio] 0.8 {ratio} Low 0.9-1.6 [facility] Comment on above: Performed By: #### G FR, CBC, ANEU, ADIFF, MG, BMP, HFP #### [place] [address] ALP [Catalytic activity/Vol] 111 U/L Normal 38-126 [facility] Comment on above: Performed By: #### G FR, CBC, ANEU, ADIFF, MG, BMP, HFP #### [place] [address] ALT [Catalytic activity/Vol] 106 U/L High 12-55 [facility] Comment on above: Performed By: #### G FR, CBC, ANEU, ADIFF, MG, BMP, HFP #### [place] [address] AST [Catalytic activity/Vol] 43 U/L High 8-34 [facility] Comment on above: Performed By: #### G FR, CBC, ANEU, ADIFF, MG, BMP, HFP #### [place] [address] Bili Direct 0.3 mg/dL Normal 0.0-0.4 [facility] Comment on above: Result Comment: Use of this assay is not recommended for patients undergoing treatment with eltrombopag due to the potential for falsely elevated results. Performed By: #### G FR, CBC, ANEU, ADIFF, MG, BMP, HFP #### [place] [address] Bili Total 1.00 mg/dL Normal 0.20-1.20 [facility] Comment on above: Result Comment: Use of this assay is not recommended for patients undergoing treatment with eltrombopag due to the potential for falsely elevated results. Performed By: #### G FR, CBC, ANEU, ADIFF, MG, BMP, HFP #### [place] [address] Globulin 3.4 G/dL Normal 2.5-4.2 [facility] Comment on above: Performed By: #### G FR, CBC, ANEU, ADIFF, MG, BMP, HFP #### [place] [address] Total Protein 6.0 G/dL Normal 5.7-8.2 [facility] Comment on above: Performed By: #### G FR, CBC, ANEU, ADIFF, MG, BMP, HFP #### [place] [address] LABORATORYOrdered By: SYSTEM SYSTEM on 01-08-2025 Albumin BCP dye [Mass/Vol] 2.6 G/dL Low 3.2 - 4.8 G/dL ADM SS Albumin/Globulin [Mass ratio] 0.8 {ratio} Low 0.9 - 1.6 ratio AH ADM SS ALP [Catalytic activity/Vol] 111 U/L Normal 38 - 126 U/L ADM SS ALT No additional P-5'-P [Catalytic activity/Vol] 106 U/L High 12 - 55 U/L AH ADM SS AST [Catalytic activity/Vol] 43 U/L High 8 - 34 U/L AH ADM SS [...] 11 0 mEq/L ADM SS CO2 [Moles/Vol] 26 mmol/L Normal 22 - 32 mEq/L ADM SS Creatinine [Mass/Vol] 1.28 mg/dL Normal 0.60 - 1.40 mg/dL ADM SS Comment on above: Interpretive Data: T esting performed on [employer] analyzer using enzymatic creatinine methodology. Electrolyte Balance [...] Filtration Rate 57 ml/min/1.73sqm Invalid Interpretation Code [facility] Comment on above: Interpretive Data: Stages [...] 3.4 G/dL Normal 2.5 - 4.2 G/dL [facility] Glucose [Mass/Vol] 110 mg/dL Normal 82 - 115 mg/dL [facility] Hematocrit (Bld) [Volume fraction] 31.9 % Low 40.0 - 52.0 % [facility] SS Hemoglobin (Bld) [Mass/Vol] 10.6 G/dL Low 13.0 - 17.5 G/dL [facility] Lymphocytes (Bld) [#/Vol] 0.9 103/mcL Normal 0.9 - 4.3 10^3/mcL [facility] SS Lymphocytes/100 WBC (Bld) 15.5 % Low 20.0 - 40.0 % [facility] SS Magnesium [Mass/Vol] 2.1 mg/dL Normal 1.6 - 2 .4 mg/dL ADM SS MCH (RBC) [Entitic mass] 28.9 pg Normal 27.0 - 33.0 pg [facility]flow SS MCHC 33.1 G/dL Normal 32.0 - 36.0 G/dL [facility] SS MCV (RBC) [Entitic vol] 87.2 fL Normal 81.0 - 100.0 fL [facility] SS Monocytes (Bld) [#/Vol] 0.7 103/mcL Normal 0.1 - 1.4 10^3/mcL [facility] SS Monocytes/100 WBC (Bld) 11.6 % Normal 2.0 - 13.0 % [facility] SS Neutrophils (Bld) [#/Vol] 4.1 103/mcL [...] 3.65 106/mcL Low 4.50 - 6.00 10^6/mcL [facility] SS Sodium [Moles/Vol] 141 mmol/L Normal 136 - 145 mEq/L ADM SS Urea nitrogen [Mass/Vol] 16.0 mg/dL Normal 8.0 - 22.0 mg/dL ADM SS Urea nitrogen/Creatinine [Mass ratio] 12.5 ratio Normal 10.0 - 22.0 ratio ADM SS WBC (Bld) [#/Vol] 5.7 103/mcL Normal 4.5 - 10.8 10^3/mcL Workflow SS MGon 01-08-2025 Magnesium [Mass/Vol] 2.1 mg/dL Normal 1.6-2.4 [facility] Comment on above: Performed By: #### G FR, CBC, ANEU, ADIFF, MG, BMP, HFP #### [address] [address] .Auto Diffon 01-07-2025 Basophil, Absolute 0.0 10 3/mcL Normal 0.0-0.3 [facility] Comment on above: Performed By: #### G FR, HFP, ANEU, ADIFF, MG, CBC, BMP #### [address] [address] Basophils/100 WBC (Bld) 0.4 % Normal 0.0-2.5 [facility] Comment on above: Performed By: #### G FR, HFP, ANEU, ADIFF, MG, CBC, BMP #### [address] [address] Eosinophil, Absolute 0.0 10 3/mcL Normal 0.0-0.7 [facility] Comment on above: Performed By: #### G FR, HFP, ANEU, ADIFF, MG, CBC, BMP #### [address] [address] Eosinophils/100 WBC (Bld) 0.9 % Normal 0.0-6.0 [facility] Comment on above: Performed By: #### G FR, HFP, ANEU, ADIFF, MG, CBC, BMP #### [address] [address] Lymphocyte, Absolute 0.6 10 3/mcL Low 0.9-4.3 [facility] Comment on above: Performed By: #### G FR, HFP, ANEU, ADIFF, MG, CBC, BMP #### [address] [address] Lymphocytes/100 WBC (Bld) 10.5 % Low 20.0-40.0 [facility] Comment on above: Performed By: #### G FR, HFP, ANEU, ADIFF, MG, CBC, BMP #### [address] [address] Monocyte, Absolute 0.6 10 3/mcL Normal 0.1-1.4 [facility] Comment on above: Performed By: #### G FR, HFP, ANEU, ADIFF, MG, CBC, BMP #### [address] [address] Monocytes/100 WBC (Bld) 10.0 % Normal 2.0-13.0 [facility] Comment on above: Performed By: #### G FR, HFP, ANEU, ADIFF, MG, CBC, BMP #### [address] [address] Neutrophils/100 WBC (Bld) 78.2 % High 50.0-75.0 [facility] Comment on above: Performed By: #### G FR, HFP, ANEU, ADIFF, MG, CBC, BMP #### [address] [address] .GFRon 01-07-2025 Estimated Glomerular Filtration Rate 51 ml/min/1.73sqm Normal [facility] Comment on above: Result [...] CBC, ANEU, ADIFF, MG, BMP, HFP #### [place] [address] .NEUABSon 01-07-2025 Neutrophil, Absolute 4.5 10 3/mcL Normal 2.3-8.1 [facility] Comment on above: Performed By: #### G FR, CBC, ANEU, ADIFF, MG, BMP, HFP #### [address] [address] [facility] BUN/Creatinine Ratio 12.9 ratio Normal 10.0-22.0 [facility] Comment on above: Performed By: #### G FR, CBC, ANEU, ADIFF, MG, BMP, HFP #### [address] [address] Calcium [Mass/Vol] 9.1 mg/dL Normal 8.7-10.4 [facility] Comment on above: Performed By: #### G FR, CBC, ANEU, ADIFF, MG, BMP, HFP #### [address] [address] Chloride [Moles/Vol] 105 mmol/L Normal 98-110 [facility] Comment on above: Performed By: #### G FR, CBC, ANEU, ADIFF, MG, BMP, HFP #### [address] [address] CO2 [Moles/Vol] 25 mmol/L Normal 22-32 [facility] Comment on above: Performed By: #### G FR, CBC, ANEU, ADIFF, MG, BMP, HFP #### [address] [address] Creatinine [Mass/Vol] 1.40 mg/dL Normal 0.60-1.40 [facility] Comment on above: Result Comment: Test ing performed on [employer] analyzer using enzymatic creatinine methodology. Performed By: #### G FR, CBC, ANEU, ADIFF, MG, BMP, HFP #### [address] [address] Electrolyte Balance 7.0 mEq/L Normal 4.0-15.0 [facility] Comment on above: Performed By: #### G FR, CBC, ANEU, ADIFF, MG, BMP, HFP #### [place] [id number] Glucose [Mass/Vol] 120 mg/dL High 82-115 [facility] Comment on above: Performed By: #### G FR, CBC, ANEU, ADIFF, MG, BMP, HFP #### [address] [address] Potassium [Moles/Vol] 3.5 mmol/L Normal 3.5-5.0 [facility] Comment on above: Performed By: #### G FR, CBC, ANEU, ADIFF, MG, BMP, HFP #### [address] [address] Sodium [Moles/Vol] 137 mmol/L Normal 136-145 [facility] Comment on above: Performed By: #### G FR, CBC, ANEU, ADIFF, MG, BMP, HFP #### [address] [address] Urea nitrogen [Mass/Vol] 18.0 mg/dL Normal 8.0-22.0 [facility] Comment on above: Performed By: #### G FR, CBC, ANEU, ADIFF, MG, BMP, HFP #### [address] [address] CBCon 01-07-2025 Erythrocyte distribution width (RBC) [Ratio] 15.8 % High 11.5-15.5 [facility] Comment on above: Performed By: #### G FR, HFP, ANEU, ADIFF, MG, CBC, BMP #### [place] [id number] Hematocrit (Bld) [Volume fraction] 31.5 % Low 40.0-52.0 [facility] Comment on above: Performed By: #### G FR, HFP, ANEU, ADIFF, MG, CBC, BMP #### [place] [address] Hgb 10.3 G/dL Low 13.0-17.5 [facility] Comment on above: Performed By: #### G FR, HFP, ANEU, ADIFF, MG, CBC, BMP #### [place] [address] MCH (RBC) [Entitic mass] 29.0 pg Normal 27.0-33.0 [facility] Comment on above: Performed By: #### G FR, HFP, ANEU, ADIFF, MG, CBC, BMP #### [place] [address] MCHC 32.6 G/dL Normal 32.0-36.0 [facility] Comment on above: Performed By: #### G FR, HFP, ANEU, ADIFF, MG, CBC, BMP #### [place] [address] MCV (RBC) [Entitic vol] 89.0 fL Normal 81.0-100.0 [facility] Comment on above: Performed By: #### G FR, HFP, ANEU, ADIFF, MG, CBC, BMP #### [place] [address] Platelet 134 10 3/mcL Low 150-450 [facility] Comment on above: Performed By: #### G FR, HFP, ANEU, ADIFF, MG, CBC, BMP #### [place] [address] Platelet mean volume (Bld) [Entitic vol] 11.3 fL High 6.4-10.5 [facility] Comment on above: Performed By: #### G FR, HFP, ANEU, ADIFF, MG, CBC, BMP #### [place] [address] RBC 3.54 10 6/mcL Low 4.50-6.00 [facility] Comment on above: Performed By: #### G FR, HFP, ANEU, ADIFF, MG, CBC, BMP #### [place] [address] WBC 5.8 10 3/mcL Normal 4.5-10.8 [facility] Comment on above: Performed By: #### G FR, HFP, ANEU, ADIFF, MG, CBC, BMP #### [place] [address] HFPon 01-07-2025 Bili Indirect 0.9 mg/dL Normal 0.1-10.0 [facility] Comment on above: Performed By: #### G FR, CBC, ANEU, ADIFF, MG, BMP, HFP #### [place] [address] Albumin Level 2.7 G/dL Low 3.2-4.8 [facility] Comment on above: Performed By: #### G FR, CBC, ANEU, ADIFF, MG, BMP, HFP #### [place] [address] Albumin/Globulin [Mass ratio] 0.8 {ratio} Low 0.9-1.6 [facility] Comment on above: Performed By: #### G FR, CBC, ANEU, ADIFF, MG, BMP, HFP #### [place] [address] ALP [Catalytic activity/Vol] 108 U/L Normal 38-126 [facility] Comment on above: Performed By: #### G FR, CBC, ANEU, ADIFF, MG, BMP, HFP #### [place] [address] ALT [Catalytic activity/Vol] 139 U/L High 12-55 [facility] Comment on above: Performed By: #### G FR, CBC, ANEU, ADIFF, MG, BMP, HFP #### [place] [address] AST [Catalytic activity/Vol] 75 U/L High 8-34 [facility] Comment on above: Performed By: #### G FR, CBC, ANEU, ADIFF, MG, BMP, HFP #### [place] [address] Bili Direct 0.5 mg/dL High 0.0-0.4 [facility] Comment on above: Result Comment: Use of this assay is not recommended for patients undergoing treatment with eltrombopag due to the potential for falsely elevated results. Performed By: #### G FR, CBC, ANEU, ADIFF, MG, BMP, HFP #### [place] [address] Bili Total 1.40 mg/dL High 0.20-1.20 [facility] Comment on above: Result Comment: Use of this assay is not recommended for patients undergoing treatment with eltrombopag due to the potential for falsely elevated results. Performed By: #### G FR, CBC, ANEU, ADIFF, MG, BMP, HFP #### [place] [address] Globulin 3.5 G/dL Normal 2.5-4.2 [facility] Comment on above: Performed By: #### G FR, CBC, ANEU, ADIFF, MG, BMP, HFP #### [place] [address] Total Protein 6.2 G/dL Normal 5.7-8.2 [facility] Comment on above: Performed By: #### G FR, CBC, ANEU, ADIFF, MG, BMP, HFP #### [place] [address] MGon 01-07-2025 Magnesium [Mass/Vol] 2.2 mg/dL Normal 1.6-2.4 [facility] Comment on above: Performed By: #### G FR, CBC, ANEU, ADIFF, MG, BMP, HFP #### [address] [address] .Auto Diffon 01-06-2025 Basophil, Absolute 0.0 10 3/mcL Normal 0.0-0.3 [facility] Comment on above: Performed By: #### G FR, CBC, ANEU, ADIFF, MG, BMP, HFP #### [address] [address] Basophils/100 WBC (Bld) 0.0 % Normal 0.0-2.5 [facility] Comment on above: Performed By: #### G FR, CBC, ANEU, ADIFF, MG, BMP, HFP #### [address] [address] Eosinophil, Absolute 0.0 10 3/mcL Normal 0.0-0.7 [facility] Comment on above: Performed By: #### G FR, CBC, ANEU, ADIFF, MG, BMP, HFP #### [place] [id number] Eosinophils/100 WBC (Bld) 0.1 % Normal 0.0-6.0 [facility] Comment on above: Performed By: #### G FR, CBC, ANEU, ADIFF, MG, BMP, HFP #### [address] [address] Lymphocyte, Absolute 0.6 10 3/mcL Low 0.9-4.3 [facility] Comment on above: Performed By: #### G FR, CBC, ANEU, ADIFF, MG, BMP, HFP #### [address] [address] Lymphocytes/100 WBC (Bld) 6.1 % Low 20.0-40.0 [facility] Comment on above: Performed By: #### G FR, CBC, ANEU, ADIFF, MG, BMP, HFP #### [place] [id number] Monocyte, Absolute 0.7 10 3/mcL Normal 0.1-1.4 [facility] Comment on above: Performed By: #### G FR, CBC, ANEU, ADIFF, MG, BMP, HFP #### [address] [address] Monocytes/100 WBC (Bld) 6.9 % Normal 2.0-13.0 [facility] Comment on above: Performed By: #### G FR, CBC, ANEU, ADIFF, MG, BMP, HFP #### [address] [address] Neutrophils/100 WBC (Bld) 86.9 % High 50.0-75.0 [facility] Comment on above: Performed By: #### G FR, CBC, ANEU, ADIFF, MG, BMP, HFP #### [address] [address] Basophil, Absolute 0.0 10 3/mcL Normal 0.0-0.3 [facility] Comment on above: Performed By: #### G FR, CBC, ANEU, ADIFF, MG, BMP, HFP #### [address] [address] Basophils/100 WBC (Bld) 0.2 % Normal 0.0-2.5 [facility] Comment on above: Performed By: #### G FR, CBC, ANEU, ADIFF, MG, BMP, HFP #### [address] [address] Eosinophil, Absolute 0.0 10 3/mcL Normal 0.0-0.7 [facility] Comment on above: Performed By: #### G FR, CBC, ANEU, ADIFF, MG, BMP, HFP #### [address] [address] Eosinophils/100 WBC (Bld) 0.1 % Normal 0.0-6.0 [facility] Comment on above: Performed By: #### G FR, CBC, ANEU, ADIFF, MG, BMP, HFP #### [address] [address] Lymphocyte, Absolute 0.8 10 3/mcL Low 0.9-4.3 [facility] Comment on above: Performed By: #### G FR, CBC, ANEU, ADIFF, MG, BMP, HFP #### [address] [address] Lymphocytes/100 WBC (Bld) 9.9 % Low 20.0-40.0 [facility] Comment on above: Performed By: #### G FR, CBC, ANEU, ADIFF, MG, BMP, HFP #### [address] [address] Monocyte, Absolute 0.8 10 3/mcL Normal 0.1-1.4 [facility] Comment on above: Performed By: #### G FR, CBC, ANEU, ADIFF, MG, BMP, HFP #### [address] [address] Monocytes/100 WBC (Bld) 9.3 % Normal 2.0-13.0 [facility] Comment on above: Performed By: #### G FR, CBC, ANEU, ADIFF, MG, BMP, HFP #### [address] [address] Neutrophils/100 WBC (Bld) 80.5 % High 50.0-75.0 [facility] Comment on above: Performed By: #### G FR, CBC, ANEU, ADIFF, MG, BMP, HFP #### [place] [address] .GFRon 01-06-2025 Estimated Glomerular Filtration Rate 43 ml/min/1.73sqm Normal [facility] Comment on above: Result [...] CBC, ANEU, ADIFF, MG, BMP, HFP #### [place] [address] .NEUABSon 01-06-2025 Neutrophil, Absolute 8.4 10 3/mcL High 2.3-8.1 [facility] Comment on above: Performed By: #### G FR, CBC, ANEU, ADIFF, MG, BMP, HFP #### [place] [id number] Neutrophil, Absolute 6.7 10 3/mcL Normal 2.3-8.1 [facility] Comment on above: Performed By: #### G FR, CBC, ANEU, ADIFF, MG, BMP, HFP #### [address] [address] BMPon 01-06-2025 BUN/Creatinine Ratio 11.2 ratio Normal 10.0-22.0 [facility] Comment on above: Performed By: #### G FR, CBC, ANEU, ADIFF, MG, BMP, HFP #### [place] [address] Calcium [Mass/Vol] 8.9 mg/dL Normal 8.7-10.4 [facility] Comment on above: Performed By: #### G FR, CBC, ANEU, ADIFF, MG, BMP, HFP #### [place] [address] Chloride [Moles/Vol] 104 mmol/L Normal 98-110 [facility] Comment on above: Performed By: #### G FR, CBC, ANEU, ADIFF, MG, BMP, HFP #### [place] [address] CO2 [Moles/Vol] 25 mmol/L Normal 22-32 [facility] Comment on above: Performed By: #### G FR, CBC, ANEU, ADIFF, MG, BMP, HFP #### [place] [phone] Creatinine [Mass/Vol] 1.61 mg/dL High 0.60-1.40 [facility] Comment on above: Result Comment: Test ing performed on [employer] analyzer using enzymatic creatinine methodology. Performed By: #### G FR, CBC, ANEU, ADIFF, MG, BMP, HFP #### [address] [address] Electrolyte Balance 13.0 mEq/L Normal 4.0-15.0 [facility] Comment on above: Performed By: #### G FR, CBC, ANEU, ADIFF, MG, BMP, HFP #### [place] [address] Glucose [Mass/Vol] 131 mg/dL High 82-115 [facility] Comment on above: Performed By: #### G FR, CBC, ANEU, ADIFF, MG, BMP, HFP #### [place] [address] Potassium [Moles/Vol] 3.8 mmol/L Normal 3.5-5.0 [facility] Comment on above: Performed By: #### G FR, CBC, ANEU, ADIFF, MG, BMP, HFP #### [place] [id number] Sodium [Moles/Vol] 142 mmol/L Normal 136-145 [facility] Comment on above: Performed By: #### G FR, CBC, ANEU, ADIFF, MG, BMP, HFP #### [place] [address] Urea nitrogen [Mass/Vol] 18.0 mg/dL Normal 8.0-22.0 [facility] Comment on above: Performed By: #### G FR, CBC, ANEU, ADIFF, MG, BMP, HFP #### [address] [address] CBCon 01-06-2025 Erythrocyte distribution width (RBC) [Ratio] 15.8 % High 11.5-15.5 [facility] Comment on above: Performed By: #### G FR, CBC, ANEU, ADIFF, MG, BMP, HFP #### [place] [phone] Hematocrit (Bld) [Volume fraction] 34.0 % Low 40.0-52.0 [facility] Comment on above: Performed By: #### G FR, CBC, ANEU, ADIFF, MG, BMP, HFP #### [place] [id number] Hgb 10.9 G/dL Low 13.0-17.5 [facility] Comment on above: Performed By: #### G FR, CBC, ANEU, ADIFF, MG, BMP, HFP #### [place] [address] MCH (RBC) [Entitic mass] 28.4 pg Normal 27.0-33.0 [facility] Comment on above: Performed By: #### G FR, CBC, ANEU, ADIFF, MG, BMP, HFP #### [place] [address] MCHC 32.0 G/dL Normal 32.0-36.0 [facility] Comment on above: Performed By: #### G FR, CBC, ANEU, ADIFF, MG, BMP, HFP #### [place] [address] MCV (RBC) [Entitic vol] 88.8 fL Normal 81.0-100.0 [facility] Comment on above: Performed By: #### G FR, CBC, ANEU, ADIFF, MG, BMP, HFP #### [place] [address] Platelet 188 10 3/mcL Normal 150-450 [facility] Comment on above: Performed By: #### G FR, CBC, ANEU, ADIFF, MG, BMP, HFP #### [place] [address] Platelet mean volume (Bld) [Entitic vol] 11.4 fL High 6.4-10.5 [facility] Comment on above: Performed By: #### G FR, CBC, ANEU, ADIFF, MG, BMP, HFP #### [place] [address] RBC 3.83 10 6/mcL Low 4.50-6.00 [facility] Comment on above: Performed By: #### G FR, CBC, ANEU, ADIFF, MG, BMP, HFP #### [place] [address] WBC 9.7 10 3/mcL Normal 4.5-10.8 [facility] Comment on above: Performed By: #### G FR, CBC, ANEU, ADIFF, MG, BMP, HFP #### [place] [address] Erythrocyte distribution width (RBC) [Ratio] 16.0 % High 11.5-15.5 [facility] Comment on above: Performed By: #### G FR, CBC, ANEU, ADIFF, MG, BMP, HFP #### [place] [phone] Hematocrit (Bld) [Volume fraction] 32.6 % Low 40.0-52.0 [facility] Comment on above: Performed By: #### G FR, CBC, ANEU, ADIFF, MG, BMP, HFP #### [place] [address] Hgb 10.7 G/dL Low 13.0-17.5 [facility] Comment on above: Performed By: #### G FR, CBC, ANEU, ADIFF, MG, BMP, HFP #### [place] [address] MCH (RBC) [Entitic mass] 28.9 pg Normal 27.0-33.0 [facility] Comment on above: Performed By: #### G FR, CBC, ANEU, ADIFF, MG, BMP, HFP #### [place] [address] MCHC 32.7 G/dL Normal 32.0-36.0 [facility] Comment on above: Performed By: #### G FR, CBC, ANEU, ADIFF, MG, BMP, HFP #### [place] [address] MCV (RBC) [Entitic vol] 88.3 fL Normal 81.0-100.0 [facility] Comment on above: Performed By: #### G FR, CBC, ANEU, ADIFF, MG, BMP, HFP #### [place] [address] Platelet 167 10 3/mcL Normal 150-450 [facility] Comment on above: Performed By: #### G FR, CBC, ANEU, ADIFF, MG, BMP, HFP #### [address] [place], [place] [address] Platelet mean volume (Bld) [Entitic vol] 11.1 fL High 6.4-10.5 [facility] Comment on above: Performed By: #### G FR, CBC, ANEU, ADIFF, MG, BMP, HFP #### [facility] [address] [place] [address] RBC 3.69 10 6/mcL Low 4.50-6.00 [facility] Comment on above: Performed By: #### G FR, CBC, ANEU, ADIFF, MG, BMP, HFP #### [address] [address] WBC 8.3 10 3/mcL Normal 4.5-10.8 [facility] Comment on above: Performed By: #### G FR, CBC, ANEU, ADIFF, MG, BMP, HFP #### [place] [id number] DIMERon 01-06-2025 D-Dimer 635 ng/mL D-DU High 0-230 [facility] Comment on above: Result [...] (PE). Performed By: #### D GLENDY #### [place] [id number] Ron 01-06-2025 Ferritin [Mass/Vol] 488.0 ng/mL High 26.0-388.0 [facility] Comment on above: Performed By: #### G FR, CBC, ANEU, ADIFF, MG, BMP, HFP #### [address] [address] FESon 01-06-2025 Iron [Mass/Vol] 17 ug/dL Low 65-175 [facility] Comment on above: Performed By: #### G FR, CBC, ANEU, ADIFF, MG, BMP, HFP #### [place] [address] Iron Sat 8 % Normal [facility] Comment on above: Performed By: #### G FR, CBC, ANEU, ADIFF, MG, BMP, HFP #### [place] [address] TIBC 226 mcg/dL Low 250-500 [facility] Comment on above: Performed By: #### G FR, CBC, ANEU, ADIFF, MG, BMP, HFP #### [address] 01-06-2025 Bili Indirect 1.2 mg/dL Normal 0.1-10.0 [facility] Comment on above: Performed By: #### G FR, CBC, ANEU, ADIFF, MG, BMP, HFP #### [place] [address] Albumin Level 2.8 G/dL Low 3.2-4.8 [facility] Comment on above: Performed By: #### G FR, CBC, ANEU, ADIFF, MG, BMP, HFP #### [place] [address] Albumin/Globulin [Mass ratio] 0.8 {ratio} Low 0.9-1.6 [facility] Comment on above: Performed By: #### G FR, CBC, ANEU, ADIFF, MG, BMP, HFP #### [place] [address] ALP [Catalytic activity/Vol] 109 U/L Normal 38-126 [facility] Comment on above: Performed By: #### G FR, CBC, ANEU, ADIFF, MG, BMP, HFP #### [place] [address] ALT [Catalytic activity/Vol] 150 U/L High 12-55 [facility] Comment on above: Performed By: #### G FR, CBC, ANEU, ADIFF, MG, BMP, HFP #### [place] [address] AST [Catalytic activity/Vol] 146 U/L High 8-34 [facility] Comment on above: Performed By: #### G FR, CBC, ANEU, ADIFF, MG, BMP, HFP #### [place] [address] Bili Direct 0.4 mg/dL Normal 0.0-0.4 [facility] Comment on above: Result Comment: Use of this assay is not recommended for patients undergoing treatment with eltrombopag due to the potential for falsely elevated results. Performed By: #### G FR, CBC, ANEU, ADIFF, MG, BMP, HFP #### [place] [address] Bili Total 1.60 mg/dL High 0.20-1.20 [facility] Comment on above: Result Comment: Use of this assay is not recommended for patients undergoing treatment with eltrombopag due to the potential for falsely elevated results. Performed By: #### G FR, CBC, ANEU, ADIFF, MG, BMP, HFP #### [place] [address] Globulin 3.6 G/dL Normal 2.5-4.2 [facility] Comment on above: Performed By: #### G FR, CBC, ANEU, ADIFF, MG, BMP, HFP #### [place] [address] Total Protein 6.4 G/dL Normal 5.7-8.2 [facility] Comment on above: Performed By: #### G FR, CBC, ANEU, ADIFF, MG, BMP, HFP #### [place] [address] LABORATORYOrdered By: SYSTEM SYSTEM on 01-06-2025 D-Dimer [...] pg/mL High 0 - 1800 pg/mL ADM Troponin I.cardiac DL <= 0.01 ng/mL [Mass/Vol] 2660 ng/L High 0 - 54 ng/L ADM Comment on above: Interpretive Data: High Sensitive Troponin I Reference Ranges: Female: 0-34 ng/L Male: 0-54 ng/L Testing performed on Fairlay analyzer using direct chemiluminescent technology. MGon 01-06-2025 Magnesium [Mass/Vol] 2.3 mg/dL Normal 1.6-2.4 [facility] Comment on above: Performed By: #### G FR, CBC, ANEU, ADIFF, MG, BMP, HFP #### [place] [address] PBNPon 01-06-2025 Natriuretic peptide B (Bld) [Mass/Vol] 5578 pg/mL High 0-1800 [facility] Comment on above: Performed By: #### D GLENDY #### [address] [address] TROPHSon 01-06-2025 High Sensitivity Troponin I 2660 ng/L High 0-54 [facility] Comment on above: Result Comment: High Sensitive Troponin I Reference Ranges: Female: 0-34 ng/L Male: 0-54 ng/L Testing performed on Fairlay analyzer using direct chemiluminescent technology. Performed By: #### D GLENDY #### [place] [id number] XR CHEST 1 VIEWon 01-06-2025 XR CHEST [...] 11:26:21 AM Ordering Provider: ARMANDO BAÑUELOS Normal [facility] .Auto Diffon 01-05-2025 Basophil, Absolute 0.0 10 3/mcL Normal 0.0-0.3 [facility] Comment on above: Performed By: #### G FR, CBC, ANEU, ADIFF, MG, BMP, HFP #### [address] [address] Basophils/100 WBC (Bld) 0.3 % Normal 0.0-2.5 [facility] Comment on above: Performed By: #### G FR, CBC, ANEU, ADIFF, MG, BMP, HFP #### [address] [address] Eosinophil, Absolute 0.1 10 3/mcL Normal 0.0-0.7 [facility] Comment on above: Performed By: #### G FR, CBC, ANEU, ADIFF, MG, BMP, HFP #### [address] [address] Eosinophils/100 WBC (Bld) 0.7 % Normal 0.0-6.0 [facility] Comment on above: Performed By: #### G FR, CBC, ANEU, ADIFF, MG, BMP, HFP #### [address] [address] Lymphocyte, Absolute 0.7 10 3/mcL Low 0.9-4.3 [facility] Comment on above: Performed By: #### G FR, CBC, ANEU, ADIFF, MG, BMP, HFP #### [address] [address] Lymphocytes/100 WBC (Bld) 10.1 % Low 20.0-40.0 [facility] Comment on above: Performed By: #### G FR, CBC, ANEU, ADIFF, MG, BMP, HFP #### [address] [address] Monocyte, Absolute 0.8 10 3/mcL Normal 0.1-1.4 [facility] Comment on above: Performed By: #### G FR, CBC, ANEU, ADIFF, MG, BMP, HFP #### [address] [address] Monocytes/100 WBC (Bld) 11.0 % Normal 2.0-13.0 [facility] Comment on above: Performed By: #### G FR, CBC, ANEU, ADIFF, MG, BMP, HFP #### [address] [address] Neutrophils/100 WBC (Bld) 77.9 % High 50.0-75.0 [facility] Comment on above: Performed By: #### G FR, CBC, ANEU, ADIFF, MG, BMP, HFP #### [address] [address] .GFRon 01-05-2025 Estimated Glomerular Filtration Rate 48 ml/min/1.73sqm Normal [facility] Comment on above: Result [...] CBC, ANEU, ADIFF, MG, BMP, HFP #### [address] [address] .NEUABSon 01-05-2025 Neutrophil, Absolute 5.5 10 3/mcL Normal 2.3-8.1 [facility] Comment on above: Performed By: #### G FR, CBC, ANEU, ADIFF, MG, BMP, HFP #### [address] [address] [facility] BUN/Creatinine Ratio 10.2 ratio Normal 10.0-22.0 [facility] Comment on above: Performed By: #### G FR, CBC, ANEU, ADIFF, MG, BMP, HFP #### [address] [address] Calcium [Mass/Vol] 8.8 mg/dL Normal 8.7-10.4 [facility] Comment on above: Performed By: #### G FR, CBC, ANEU, ADIFF, MG, BMP, HFP #### [address] [address] Chloride [Moles/Vol] 107 mmol/L Normal 98-110 [facility] Comment on above: Performed By: #### G FR, CBC, ANEU, ADIFF, MG, BMP, HFP #### [address] [address] CO2 [Moles/Vol] 20 mmol/L Low 22-32 [facility] Comment on above: Performed By: #### G FR, CBC, ANEU, ADIFF, MG, BMP, HFP #### [place] [address] Creatinine [Mass/Vol] 1.47 mg/dL High 0.60-1.40 [facility] Comment on above: Result Comment: Test ing performed on [employer] analyzer using enzymatic creatinine methodology. Performed By: #### G FR, CBC, ANEU, ADIFF, MG, BMP, HFP #### [place] [address] Electrolyte Balance 14.0 mEq/L Normal 4.0-15.0 [facility] Comment on above: Performed By: #### G FR, CBC, ANEU, ADIFF, MG, BMP, HFP #### [place] [address] Glucose [Mass/Vol] 175 mg/dL High 82-115 [facility] Comment on above: Performed By: #### G FR, CBC, ANEU, ADIFF, MG, BMP, HFP #### [place] [id number] Potassium [Moles/Vol] 4.2 mmol/L Normal 3.5-5.0 [facility] Comment on above: Performed By: #### G FR, CBC, ANEU, ADIFF, MG, BMP, HFP #### [place] [id number] Sodium [Moles/Vol] 141 mmol/L Normal 136-145 [facility] Comment on above: Performed By: #### G FR, CBC, ANEU, ADIFF, MG, BMP, HFP #### [place] [id number] Urea nitrogen [Mass/Vol] 15.0 mg/dL Normal 8.0-22.0 [facility] Comment on above: Performed By: #### G FR, CBC, ANEU, ADIFF, MG, BMP, HFP #### [place] [id number] CBCon 01-05-2025 Erythrocyte distribution width (RBC) [Ratio] 15.4 % Normal 11.5-15.5 [facility] Comment on above: Performed By: #### G FR, CBC, ANEU, ADIFF, MG, BMP, HFP #### [place] [address] Hematocrit (Bld) [Volume fraction] 32.1 % Low 40.0-52.0 [facility] Comment on above: Performed By: #### G FR, CBC, ANEU, ADIFF, MG, BMP, HFP #### [place] [address] Hgb 10.5 G/dL Low 13.0-17.5 [facility] Comment on above: Performed By: #### G FR, CBC, ANEU, ADIFF, MG, BMP, HFP #### [place] [address] MCH (RBC) [Entitic mass] 29.0 pg Normal 27.0-33.0 [facility] Comment on above: Performed By: #### G FR, CBC, ANEU, ADIFF, MG, BMP, HFP #### [place] [address] MCHC 32.7 G/dL Normal 32.0-36.0 [facility] Comment on above: Performed By: #### G FR, CBC, ANEU, ADIFF, MG, BMP, HFP #### [place] [address] MCV (RBC) [Entitic vol] 88.7 fL Normal 81.0-100.0 [facility] Comment on above: Performed By: #### G FR, CBC, ANEU, ADIFF, MG, BMP, HFP #### [place] [address] Platelet 171 10 3/mcL Normal 150-450 [facility] Comment on above: Performed By: #### G FR, CBC, ANEU, ADIFF, MG, BMP, HFP #### [place] [address] Platelet mean volume (Bld) [Entitic vol] 11.1 fL High 6.4-10.5 [facility] Comment on above: Performed By: #### G FR, CBC, ANEU, ADIFF, MG, BMP, HFP #### [address] [address] RBC 3.62 10 6/mcL Low 4.50-6.00 [facility] Comment on above: Performed By: #### G FR, CBC, ANEU, ADIFF, MG, BMP, HFP #### [place] [address] WBC 7.1 10 3/mcL Normal 4.5-10.8 [facility] Comment on above: Performed By: #### G FR, CBC, ANEU, ADIFF, MG, BMP, HFP #### [place] [address] HFPon 01-05-2025 Bili Indirect 1.2 mg/dL Normal 0.1-10.0 [facility] Comment on above: Performed By: #### G FR, CBC, ANEU, ADIFF, MG, BMP, HFP #### [place] [address] Albumin Level 2.8 G/dL Low 3.2-4.8 [facility] Comment on above: Performed By: #### G FR, CBC, ANEU, ADIFF, MG, BMP, HFP #### [place] [address] Albumin/Globulin [Mass ratio] 0.8 {ratio} Low 0.9-1.6 [facility] Comment on above: Performed By: #### G FR, CBC, ANEU, ADIFF, MG, BMP, HFP #### [place] [address] ALP [Catalytic activity/Vol] 104 U/L Normal 38-126 [facility] Comment on above: Performed By: #### G FR, CBC, ANEU, ADIFF, MG, BMP, HFP #### [place] [address] ALT [Catalytic activity/Vol] 25 U/L Normal 12-55 [facility] Comment on above: Performed By: #### G FR, CBC, ANEU, ADIFF, MG, BMP, HFP #### [place] [address] AST [Catalytic activity/Vol] 41 U/L High 8-34 [facility] Comment on above: Performed By: #### G FR, CBC, ANEU, ADIFF, MG, BMP, HFP #### [place] [address] Bili Direct 0.5 mg/dL High 0.0-0.4 [facility] Comment on above: Result Comment: Use of this assay is not recommended for patients undergoing treatment with eltrombopag due to the potential for falsely elevated results. Performed By: #### G FR, CBC, ANEU, ADIFF, MG, BMP, HFP #### [place] [address] Bili Total 1.70 mg/dL High 0.20-1.20 [facility] Comment on above: Result Comment: Use of this assay is not recommended for patients undergoing treatment with eltrombopag due to the potential for falsely elevated results. Performed By: #### G FR, CBC, ANEU, ADIFF, MG, BMP, HFP #### [place] [address] Globulin 3.5 G/dL Normal 2.5-4.2 [facility] Comment on above: Performed By: #### G FR, CBC, ANEU, ADIFF, MG, BMP, HFP #### [place] [address] Total Protein 6.3 G/dL Normal 5.7-8.2 [facility] Comment on above: Performed By: #### G FR, CBC, ANEU, ADIFF, MG, BMP, HFP #### [place] [address] LABORATORYOrdered By: SYSTEM SYSTEM on 01-05-2025 Troponin I.cardiac DL <= 0.01 ng/mL [Mass/Vol] 3734 ng/L High 0 - 54 ng/L AH ADM SS Comment on above: Interpretive Data: High Sensitive Troponin I Reference Ranges: Female: 0-34 ng/L Male: 0-54 ng/L Testing performed on [employer] analyzer using direct chemiluminescent technology. MGon 01-05-2025 Magnesium [Mass/Vol] 2.0 mg/dL Normal 1.6-2.4 [facility] Comment on above: Performed By: #### G FR, CBC, ANEU, ADIFF, MG, BMP, HFP #### [address] [address] TROPHSon 01-05-2025 High Sensitivity Troponin I 3734 ng/L High 0-54 [facility] Comment on above: Result Comment: High Sensitive Troponin I Reference Ranges: Female: 0-34 ng/L Male: 0-54 ng/L Testing performed on [employer] IM analyzer using direct chemiluminescent technology. Performed By: #### G FR, CBC, ANEU, ADIFF, MG, BMP, HFP #### [address] [address] XR CHEST 1 VIEWon 01-05-2025 XR CHEST [...] 01/05/2025 2:09:48 PM Ordering Provider: COREY Nickerson [facility] .Auto Diffon 01-04-2025 Basophil, Absolute 0.0 10 3/mcL Normal 0.0-0.3 [facility] Comment on above: Performed By: #### G FR, CBC, ANEU, ADIFF, MG, BMP, HFP #### [address] [address] Basophils/100 WBC (Bld) 0.4 % Normal 0.0-2.5 [facility] Comment on above: Performed By: #### G FR, CBC, ANEU, ADIFF, MG, BMP, HFP #### [address] [address] Eosinophil, Absolute 0.1 10 3/mcL Normal 0.0-0.7 [facility] Comment on above: Performed By: #### G FR, CBC, ANEU, ADIFF, MG, BMP, HFP #### [address] [address] Eosinophils/100 WBC (Bld) 2.5 % Normal 0.0-6.0 [facility] Comment on above: Performed By: #### G FR, CBC, ANEU, ADIFF, MG, BMP, HFP #### [address] [address] Lymphocyte, Absolute 0.8 10 3/mcL Low 0.9-4.3 [facility] Comment on above: Performed By: #### G FR, CBC, ANEU, ADIFF, MG, BMP, HFP #### [address] [address] Lymphocytes/100 WBC (Bld) 15.8 % Low 20.0-40.0 [facility] Comment on above: Performed By: #### G FR, CBC, ANEU, ADIFF, MG, BMP, HFP #### [address] [address] Monocyte, Absolute 0.6 10 3/mcL Normal 0.1-1.4 [facility] Comment on above: Performed By: #### G FR, CBC, ANEU, ADIFF, MG, BMP, HFP #### [address] [address] Monocytes/100 WBC (Bld) 11.6 % Normal 2.0-13.0 [facility] Comment on above: Performed By: #### G FR, CBC, ANEU, ADIFF, MG, BMP, HFP #### [address] [address] Neutrophils/100 WBC (Bld) 69.7 % Normal 50.0-75.0 [facility] Comment on above: Performed By: #### G FR, CBC, ANEU, ADIFF, MG, BMP, HFP #### [address] [address] .GFRon 01-04-2025 Estimated Glomerular Filtration Rate 54 ml/min/1.73sqm Normal [facility] Comment on above: Result [...] CBC, ANEU, ADIFF, MG, BMP, HFP #### [place] [address] .NEUABSon 01-04-2025 Neutrophil, Absolute 3.6 10 3/mcL Normal 2.3-8.1 [facility] Comment on above: Performed By: #### G FR, CBC, ANEU, ADIFF, MG, BMP, HFP #### [place] [address] A1Con 01-04-2025 Glucose [Mass/Vol] 171 mg/dL Normal [facility] Comment on above: Result Comment: Kala mated Average Glucose calculated by equation ((28.7xA1C)-46.7) Estimated average glucose (eAG) is a calculated value from Hemoglobin A1C and is quality control representative of the average blood glucose level in the last 2-3 month period. Normal range: less than 114 mg/dL Performed By: #### G FR, CBC, ANEU, ADIFF, MG, BMP, HFP #### [place] [address] HbA1c (Bld) [Mass fraction] 7.6 % High 4.0-6.0 [facility] Comment on above: Performed By: #### G FR, CBC, ANEU, ADIFF, MG, BMP, HFP #### [place] [address] APTTon 09-04-2025 aPTT Coag (Bld) [Time] 33.2 s Normal 25.0-35.0 [facility] Comment on above: Result Comment: For Heparin anticoagulation therapy, the recommended therapeutic range is: 54-77 seconds (APTT Correlation with Anti-Xa therapeutic range of 0.3-0.7 units/ml). PLEASE REFERENCE THE PHARMACY PROTOCOL FOR DOSING. Performed By: #### G FR, CBC, ANEU, ADIFF, MG, BMP, HFP #### [address] [address] [facility] BUN/Creatinine Ratio 9.7 ratio Low 10.0-22.0 [facility] Comment on above: Performed By: #### G FR, CBC, ANEU, ADIFF, MG, BMP, HFP #### [place] [id number] Calcium [Mass/Vol] 8.4 mg/dL Low 8.7-10.4 [facility] Comment on above: Performed By: #### G FR, CBC, ANEU, ADIFF, MG, BMP, HFP #### [place] [id number] Chloride [Moles/Vol] 109 mmol/L Normal 98-110 [facility] Comment on above: Performed By: #### G FR, CBC, ANEU, ADIFF, MG, BMP, HFP #### [address] [address] CO2 [Moles/Vol] 22 mmol/L Normal 22-32 [facility] Comment on above: Performed By: #### G FR, CBC, ANEU, ADIFF, MG, BMP, HFP #### [address] [address] Creatinine [Mass/Vol] 1.34 mg/dL Normal 0.60-1.40 [facility] Comment on above: Result Comment: Test ing performed on [employer] analyzer using enzymatic creatinine methodology. Performed By: #### G FR, CBC, ANEU, ADIFF, MG, BMP, HFP #### [address] [address] Electrolyte Balance 11.0 mEq/L Normal 4.0-15.0 [facility] Comment on above: Performed By: #### G FR, CBC, ANEU, ADIFF, MG, BMP, HFP #### [place] [id number] Glucose [Mass/Vol] 131 mg/dL High 82-115 [facility] Comment on above: Performed By: #### G FR, CBC, ANEU, ADIFF, MG, BMP, HFP #### [place] [id number] Potassium [Moles/Vol] 3.7 mmol/L Normal 3.5-5.0 [facility] Comment on above: Performed By: #### G FR, CBC, ANEU, ADIFF, MG, BMP, HFP #### [place] [id number] Sodium [Moles/Vol] 142 mmol/L Normal 136-145 [facility] Comment on above: Performed By: #### G FR, CBC, ANEU, ADIFF, MG, BMP, HFP #### [place] [address] Urea nitrogen [Mass/Vol] 13.0 mg/dL Normal 8.0-22.0 [facility] Comment on above: Performed By: #### G FR, CBC, ANEU, ADIFF, MG, BMP, HFP #### [address] [address] CBCon 01-04-2025 Erythrocyte distribution width (RBC) [Ratio] 15.1 % Normal 11.5-15.5 [facility] Comment on above: Performed By: #### G FR, CBC, ANEU, ADIFF, MG, BMP, HFP #### [place] [id number] Hematocrit (Bld) [Volume fraction] 30.1 % Low 40.0-52.0 [facility] Comment on above: Performed By: #### G FR, CBC, ANEU, ADIFF, MG, BMP, HFP #### [place] [id number] Hgb 9.8 G/dL Low 13.0-17.5 [facility] Comment on above: Performed By: #### G FR, CBC, ANEU, ADIFF, MG, BMP, HFP #### [place] [address] MCH (RBC) [Entitic mass] 28.5 pg Normal 27.0-33.0 [facility] Comment on above: Performed By: #### G FR, CBC, ANEU, ADIFF, MG, BMP, HFP #### [place] [address] MCHC 32.5 G/dL Normal 32.0-36.0 [facility] Comment on above: Performed By: #### G FR, CBC, ANEU, ADIFF, MG, BMP, HFP #### [place] [address] MCV (RBC) [Entitic vol] 87.6 fL Normal 81.0-100.0 [facility] Comment on above: Performed By: #### G FR, CBC, ANEU, ADIFF, MG, BMP, HFP #### [place] [address] Platelet 132 10 3/mcL Low 150-450 [facility] Comment on above: Performed By: #### G FR, CBC, ANEU, ADIFF, MG, BMP, HFP #### [place] [address] Platelet mean volume (Bld) [Entitic vol] 11.1 fL High 6.4-10.5 [facility] Comment on above: Performed By: #### G FR, CBC, ANEU, ADIFF, MG, BMP, HFP #### [place] [address] RBC 3.43 10 6/mcL Low 4.50-6.00 [facility] Comment on above: Performed By: #### G FR, CBC, ANEU, ADIFF, MG, BMP, HFP #### [place] [address] WBC 5.2 10 3/mcL Normal 4.5-10.8 [facility] Comment on above: Performed By: #### G FR, CBC, ANEU, ADIFF, MG, BMP, HFP #### [address] [place], [place] [address] DIMERon 01-04-2025 D-Dimer <200 Normal 0-230 [facility] Comment on above: Result [...] 01-04-2025 Bili Indirect 1.0 mg/dL Normal 0.1-10.0 [facility] Comment on above: Performed By: #### G FR, CBC, ANEU, ADIFF, MG, BMP, HFP #### [address] [address] Albumin Level 2.7 G/dL Low 3.2-4.8 [facility] Comment on above: Performed By: #### G FR, CBC, ANEU, ADIFF, MG, BMP, HFP #### [address] [address] Albumin/Globulin [Mass ratio] 0.9 {ratio} Normal 0.9-1.6 [facility] Comment on above: Performed By: #### G FR, CBC, ANEU, ADIFF, MG, BMP, HFP #### [address] [address] ALP [Catalytic activity/Vol] 97 U/L Normal 38-126 [facility] Comment on above: Performed By: #### G FR, CBC, ANEU, ADIFF, MG, BMP, HFP #### [address] [address] ALT [Catalytic activity/Vol] 17 U/L Normal 12-55 [facility] Comment on above: Performed By: #### G FR, CBC, ANEU, ADIFF, MG, BMP, HFP #### [place] [address] AST [Catalytic activity/Vol] 42 U/L High 8-34 [facility] Comment on above: Performed By: #### G FR, CBC, ANEU, ADIFF, MG, BMP, HFP #### [place] [address] Bili Direct 0.4 mg/dL Normal 0.0-0.4 [facility] Comment on above: Result Comment: Use of this assay is not recommended for patients undergoing treatment with eltrombopag due to the potential for falsely elevated results. Performed By: #### G FR, CBC, ANEU, ADIFF, MG, BMP, HFP #### [place] [address] Bili Total 1.40 mg/dL High 0.20-1.20 [facility] Comment on above: Result Comment: Use of this assay is not recommended for patients undergoing treatment with eltrombopag due to the potential for falsely elevated results. Performed By: #### G FR, CBC, ANEU, ADIFF, MG, BMP, HFP #### [place] [address] Globulin 3.1 G/dL Normal 2.5-4.2 [facility] Comment on above: Performed By: #### G FR, CBC, ANEU, ADIFF, MG, BMP, HFP #### [place] [address] Total Protein 5.8 G/dL Normal 5.7-8.2 [facility] Comment on above: Performed By: #### G FR, CBC, ANEU, ADIFF, MG, BMP, HFP #### [place] [address] LABORATORYOrdered By: Jose Mariscal on 01-04-2025 D-Dimer [...] (DVT) and pulmonary embolism (PE). LABORATORYOrdered By: [employer] on 01-04-2025 aPTT Coag (Bld) [Time] 33.2 s Normal 25.0 - 35.0 seconds [facility] Comment on above: Interpretive Data: F or Heparin anticoagulation therapy, the recommended therapeutic range is: 54-77 seconds (APTT Correlation with Anti-Xa therapeutic range of 0.3-0.7 units/ml). PLEASE REFERENCE THE PHARMACY PROTOCOL FOR DOSING. Glucose [Mass/Vol] 171 mg/dL Invalid Interpretation Code [employer] Comment on above: Interpretive Data: E stimated average glucose (eAG) is a calculated value from Hemoglobin A1C and is quality control representative of the average blood glucose level in the last 2-3 month period. Normal range: less than 114 mg/dL HbA1c (Bld) [Mass fraction] 7.6 % High 4.0 - 6.0 % Auto Chem SS TSH Qn 2.347 mIU/mL Normal 0.550 - 4.780 mIU/mL ADM LABORATORYOrdered By: Devon Marsh on 01-04-2025 Cholesterol [Mass/Vol] 131 mg/dL Normal 50 - 199 mg/dL ADM Comment on above: Interpretive Data: C holesterol Reference Interval: Less than 200 Desirable 200-239 Borderline high risk 240 and above High risk Cholesterol in HDL [Mass/Vol] 27 mg/dL Low 40 - 59 mg/dL ADM Cholesterol in LDL [Mass/Vol] 60 mg/dL Normal 0 - 129 mg/dL ADM Triglyceride [Mass/Vol] 219 mg/dL High 3 - 149 mg/dL ADM SS LIPIDon 01-04-2025 Cholesterol [Mass/Vol] 131 mg/dL Normal 50-199 [facility] Comment on above: Result Comment: Chol esterol Reference Interval: Less than 200 Desirable 200-239 Borderline high risk 240 and above High risk Performed By: #### G FR, CBC, ANEU, ADIFF, MG, BMP, HFP #### [address] [address] Cholesterol in HDL [Mass/Vol] 27 mg/dL Low 40-59 [facility] Comment on above: Performed By: #### G FR, CBC, ANEU, ADIFF, MG, BMP, HFP #### [address] [address] Cholesterol in LDL [Mass/Vol] 60 mg/dL Normal 0-129 [facility] Comment on above: Performed By: #### G FR, CBC, ANEU, ADIFF, MG, BMP, HFP #### [address] [address] Triglyceride [Mass/Vol] 219 mg/dL High 3-149 [facility] Comment on above: Performed By: #### G FR, CBC, ANEU, ADIFF, MG, BMP, HFP #### [place] [address] MGon 01-04-2025 Magnesium [Mass/Vol] 2.0 mg/dL Normal 1.6-2.4 [facility] Comment on above: Performed By: #### G FR, CBC, ANEU, ADIFF, MG, BMP, HFP #### [address] [address] TROPHSon 01-04-2025 High Sensitivity Troponin I 6698 ng/L High 0-54 [facility] Comment on above: Result Comment: High Sensitive Troponin I Reference Ranges: Female: 0-34 ng/L Male: 0-54 ng/L Testing performed on [employer] analyzer using direct chemiluminescent technology. Performed By: #### G FR, CBC, ANEU, ADIFF, MG, BMP, HFP #### [place] [id number] TSHRon 01-04-2025 TSH 2.347 mIU/mL Normal 0.550-4.78 0 [facility] Comment on above: Performed By: #### G FR, CBC, ANEU, ADIFF, MG, BMP, HFP #### [address] [address] XR CHEST 1 VIEWon 01-04-2025 XR CHEST [...] 01/04/2025 5:39:33 AM Ordering Provider: EVA Nickerson [facility] .Auto Diffon 01-03-2025 Basophil, Absolute 0.0 10 3/mcL Normal 0.0-0.3 [facility] Comment on above: Performed By: #### G FR, CBC, ANEU, ADIFF, MG, BMP, HFP #### [address] [address] Basophils/100 WBC (Bld) 0.3 % Normal 0.0-2.5 [facility] Comment on above: Performed By: #### G FR, CBC, ANEU, ADIFF, MG, BMP, HFP #### [address] [address] Eosinophil, Absolute 0.1 10 3/mcL Normal 0.0-0.7 [facility] Comment on above: Performed By: #### G FR, CBC, ANEU, ADIFF, MG, BMP, HFP #### [address] [address] Eosinophils/100 WBC (Bld) 2.0 % Normal 0.0-6.0 [facility] Comment on above: Performed By: #### G FR, CBC, ANEU, ADIFF, MG, BMP, HFP #### [address] [address] Lymphocyte, Absolute 0.8 10 3/mcL Low 0.9-4.3 [facility] Comment on above: Performed By: #### G FR, CBC, ANEU, ADIFF, MG, BMP, HFP #### [address] [address] Lymphocytes/100 WBC (Bld) 14.5 % Low 20.0-40.0 [facility] Comment on above: Performed By: #### G FR, CBC, ANEU, ADIFF, MG, BMP, HFP #### [address] [address] Monocyte, Absolute 0.7 10 3/mcL Normal 0.1-1.4 [facility] Comment on above: Performed By: #### G FR, CBC, ANEU, ADIFF, MG, BMP, HFP #### [address] [address] Monocytes/100 WBC (Bld) 11.4 % Normal 2.0-13.0 [facility] Comment on above: Performed By: #### G FR, CBC, ANEU, ADIFF, MG, BMP, HFP #### [address] [address] Neutrophils/100 WBC (Bld) 71.8 % Normal 50.0-75.0 [facility] Comment on above: Performed By: #### G FR, CBC, ANEU, ADIFF, MG, BMP, HFP #### [address] [address] Basophil, Absolute 0.0 10 3/mcL Normal 0.0-0.3 [facility] Comment on above: Performed By: #### G FR, CBC, ANEU, ADIFF, MG, BMP, HFP #### [address] [address] Basophils/100 WBC (Bld) 0.3 % Normal 0.0-2.5 [facility] Comment on above: Performed By: #### G FR, CBC, ANEU, ADIFF, MG, BMP, HFP #### [address] [address] Eosinophil, Absolute 0.1 10 3/mcL Normal 0.0-0.7 [facility] Comment on above: Performed By: #### G FR, CBC, ANEU, ADIFF, MG, BMP, HFP #### [address] [address] Eosinophils/100 WBC (Bld) 1.9 % Normal 0.0-6.0 [facility] Comment on above: Performed By: #### G FR, CBC, ANEU, ADIFF, MG, BMP, HFP #### [address] [address] Lymphocyte, Absolute 0.9 10 3/mcL Normal 0.9-4.3 [facility] Comment on above: Performed By: #### G FR, CBC, ANEU, ADIFF, MG, BMP, HFP #### [address] [address] Lymphocytes/100 WBC (Bld) 13.9 % Low 20.0-40.0 [facility] Comment on above: Performed By: #### G FR, CBC, ANEU, ADIFF, MG, BMP, HFP #### [address] [address] Monocyte, Absolute 0.8 10 3/mcL Normal 0.1-1.4 [facility] Comment on above: Performed By: #### G FR, CBC, ANEU, ADIFF, MG, BMP, HFP #### [address] [address] Monocytes/100 WBC (Bld) 11.6 % Normal 2.0-13.0 [facility] Comment on above: Performed By: #### G FR, CBC, ANEU, ADIFF, MG, BMP, HFP #### [address] [address] Neutrophils/100 WBC (Bld) 72.3 % Normal 50.0-75.0 [facility] Comment on above: Performed By: #### G FR, CBC, ANEU, ADIFF, MG, BMP, HFP #### [address] [address] .GFRon 01-03-2025 Estimated Glomerular Filtration Rate 51 ml/min/1.73sqm Normal [facility] Comment on above: Result [...] CBC, ANEU, ADIFF, MG, BMP, HFP #### [place] [address] Estimated Glomerular Filtration Rate 49 ml/min/1.73sqm Normal [facility] Comment on above: Result [...] CBC, ANEU, ADIFF, MG, BMP, HFP #### [address] [address] .NEUABSon 01-03-2025 Neutrophil, Absolute 4.1 10 3/mcL Normal 2.3-8.1 [facility] Comment on above: Performed By: #### G FR, CBC, ANEU, ADIFF, MG, BMP, HFP #### [address] [address] Neutrophil, Absolute 4.8 10 3/mcL Normal 2.3-8.1 [facility] Comment on above: Performed By: #### G FR, CBC, ANEU, ADIFF, MG, BMP, HFP #### [address] [address] 12 Lead EKGon 01-03-2025 12 Lead EKG Normal [facility] APTTon 01-03-2025 aPTT Coag (Bld) [Time] 30.4 s Normal 25.0-35.0 [facility] Comment on above: Result Comment: For Heparin anticoagulation therapy, the recommended therapeutic range is: 54-77 seconds (APTT Correlation with Anti-Xa therapeutic range of 0.3-0.7 units/ml). PLEASE REFERENCE THE PHARMACY PROTOCOL FOR DOSING. Performed By: #### G FR, CBC, ANEU, ADIFF, MG, BMP, HFP #### [address] [address] BMPon 01-03-2025 BUN/Creatinine Ratio 10.0 ratio Normal 10.0-22.0 [facility] Comment on above: Performed By: #### G FR, CBC, ANEU, ADIFF, MG, BMP, HFP #### [address] [address] Calcium [Mass/Vol] 9.1 mg/dL Normal 8.7-10.4 [facility] Comment on above: Performed By: #### G FR, CBC, ANEU, ADIFF, MG, BMP, HFP #### [address] [address] Chloride [Moles/Vol] 109 mmol/L Normal 98-110 [facility] Comment on above: Performed By: #### G FR, CBC, ANEU, ADIFF, MG, BMP, HFP #### [address] [address] CO2 [Moles/Vol] 23 mmol/L Normal 22-32 [facility] Comment on above: Performed By: #### G FR, CBC, ANEU, ADIFF, MG, BMP, HFP #### [address] [address] Creatinine [Mass/Vol] 1.40 mg/dL Normal 0.60-1.40 [facility] Comment on above: Result Comment: Test ing performed on [employer] analyzer using enzymatic creatinine methodology. Performed By: #### G FR, CBC, ANEU, ADIFF, MG, BMP, HFP #### [address] [address] Electrolyte Balance 9.0 mEq/L Normal 4.0-15.0 [facility] Comment on above: Performed By: #### G FR, CBC, ANEU, ADIFF, MG, BMP, HFP #### [place] [id number] Glucose [Mass/Vol] 118 mg/dL High 82-115 [facility] Comment on above: Performed By: #### G FR, CBC, ANEU, ADIFF, MG, BMP, HFP #### [address] [address] Potassium [Moles/Vol] 3.7 mmol/L Normal 3.5-5.0 [facility] Comment on above: Performed By: #### G FR, CBC, ANEU, ADIFF, MG, BMP, HFP #### [address] [address] Sodium [Moles/Vol] 141 mmol/L Normal 136-145 [facility] Comment on above: Performed By: #### G FR, CBC, ANEU, ADIFF, MG, BMP, HFP #### [address] [address] Urea nitrogen [Mass/Vol] 14.0 mg/dL Normal 8.0-22.0 [facility] Comment on above: Performed By: #### G FR, CBC, ANEU, ADIFF, MG, BMP, HFP #### [address] [address] Basic Metabolic Profile (BMP )on 01-03-2025 BUN/CRE 10.4 RATIO Normal 10-20 [facility] Comment on above: Performed By: #### L 100.0100, L501.4021, L500.2500 ####[facility] [address] [place], [address] Calcium [Mass/Vol] 8.8 mg/dL Normal 7.6-11.0 [facility] Comment on above: Performed By: #### L 100.0100, L501.4021, L500.2500 ####[facility] [address] [place], [address] Chloride [Moles/Vol] 106 mmol/L Normal 98-108 [facility] Comment on above: Performed By: #### L 100.0100, L501.4021, L500.2500 ####[facility] [address] [place], [address] CO2 [Moles/Vol] 20.0 mmol/L Low 21.0-32.0 [facility] Comment on above: Performed By: #### L 100.0100, L501.4021, L500.2500 ####[facility] [address] [place], [address] Creatinine [Mass/Vol] 1.52 mg/dL High 0.70-1.20 [facility] Comment on above: Performed By: #### L 100.0100, L501.4021, L500.2500 ####[facility] [address] [place], [address] ECRCL 46.43 ml/min Low 50-250 [facility] Comment on above: Performed By: #### L 100.0100, L501.4021, L500.2500 ####[facility] [address] [place], [address] GAP 12 Normal 5-15 [facility] Comment on above: Performed By: #### L 100.0100, L501.4021, L500.2500 ####[facility] [address] [place], [address] GFR/1.73 sq M.predicted among non-blacks MDRD (S/P/Bld) [Vol rate/Area] 46 mL/min/{1.73_m2} Low >60 [facility] Comment on above: Result Comment: mL/m in/1.73m2 CKD-EPI Creatinine Equation (2020) Performed By: #### L 100.0100, L501.4021, L500.2500 ####[facility] [address] [place], [address] Glucose [Mass/Vol] 220 mg/dL High 70-99 [facility] Comment on above: Performed By: #### L 100.0100, L501.4021, L500.2500 ####[facility] [address] [place], [address] Potassium [Moles/Vol] 4.0 mmol/L Normal 3.3-5.1 [facility] Comment on above: Performed By: #### L 100.0100, L501.4021, L500.2500 ####[facility] [address] [place], [address] Sodium [Moles/Vol] 138 mmol/L Normal 133-145 [facility] Comment on above: Performed By: #### L 100.0100, L501.4021, L500.2500 ####[facility] [address] [place], [address] Urea nitrogen [Mass/Vol] 16 mg/dL Normal 4-19 [facility] Comment on above: Performed By: #### L 100.0100, L501.4021, L500.2500 ####[facility] [address] [place], [address] CBCon 01-03-2025 Erythrocyte distribution width (RBC) [Ratio] 15.2 % Normal 11.5-15.5 [facility] Comment on above: Performed By: #### G FR, CBC, ANEU, ADIFF, MG, BMP, HFP #### [place] [address] Hematocrit (Bld) [Volume fraction] 31.3 % Low 40.0-52.0 [facility] Comment on above: Performed By: #### G FR, CBC, ANEU, ADIFF, MG, BMP, HFP #### [place] [address] Hgb 10.2 G/dL Low 13.0-17.5 [facility] Comment on above: Performed By: #### G FR, CBC, ANEU, ADIFF, MG, BMP, HFP #### [place] [address] MCH (RBC) [Entitic mass] 28.5 pg Normal 27.0-33.0 [facility] Comment on above: Performed By: #### G FR, CBC, ANEU, ADIFF, MG, BMP, HFP #### [place] [address] MCHC 32.6 G/dL Normal 32.0-36.0 [facility] Comment on above: Performed By: #### G FR, CBC, ANEU, ADIFF, MG, BMP, HFP #### [place] [address] MCV (RBC) [Entitic vol] 87.6 fL Normal 81.0-100.0 [facility] Comment on above: Performed By: #### G FR, CBC, ANEU, ADIFF, MG, BMP, HFP #### [place] [address] Platelet 143 10 3/mcL Low 150-450 [facility] Comment on above: Performed By: #### G FR, CBC, ANEU, ADIFF, MG, BMP, HFP #### [place] [address] Platelet mean volume (Bld) [Entitic vol] 10.5 fL Normal 6.4-10.5 [facility] Comment on above: Performed By: #### G FR, CBC, ANEU, ADIFF, MG, BMP, HFP #### [place] [address] RBC 3.57 10 6/mcL Low 4.50-6.00 [facility] Comment on above: Performed By: #### G FR, CBC, ANEU, ADIFF, MG, BMP, HFP #### [place] [address] WBC 5.8 10 3/mcL Normal 4.5-10.8 [facility] Comment on above: Performed By: #### G FR, CBC, ANEU, ADIFF, MG, BMP, HFP #### [place] [address] Erythrocyte distribution width (RBC) [Ratio] 15.9 % High 11.5-15.5 [facility] Comment on above: Performed By: #### G FR, CBC, ANEU, ADIFF, MG, BMP, HFP #### [place] [address] Hematocrit (Bld) [Volume fraction] 33.2 % Low 40.0-52.0 [facility] Comment on above: Performed By: #### G FR, CBC, ANEU, ADIFF, MG, BMP, HFP #### [place] [address] Hgb 10.7 G/dL Low 13.0-17.5 [facility] Comment on above: Performed By: #### G FR, CBC, ANEU, ADIFF, MG, BMP, HFP #### [place] [address] MCH (RBC) [Entitic mass] 28.7 pg Normal 27.0-33.0 [facility] Comment on above: Performed By: #### G FR, CBC, ANEU, ADIFF, MG, BMP, HFP #### [place] [address] MCHC 32.3 G/dL Normal 32.0-36.0 [facility] Comment on above: Performed By: #### G FR, CBC, ANEU, ADIFF, MG, BMP, HFP #### [facility] [address] [place], [place] [address] MCV (RBC) [Entitic vol] 89.0 fL Normal 81.0-100.0 [facility] Comment on above: Performed By: #### G FR, CBC, ANEU, ADIFF, MG, BMP, HFP #### [address] [address] Platelet 154 10 3/mcL Normal 150-450 [facility] Comment on above: Performed By: #### G FR, CBC, ANEU, ADIFF, MG, BMP, HFP #### [address] [address] Platelet mean volume (Bld) [Entitic vol] 10.3 fL Normal 6.4-10.5 [facility] Comment on above: Performed By: #### G FR, CBC, ANEU, ADIFF, MG, BMP, HFP #### [address] [address] RBC 3.73 10 6/mcL Low 4.50-6.00 [facility] Comment on above: Performed By: #### G FR, CBC, ANEU, ADIFF, MG, BMP, HFP #### [address] [address] WBC 6.7 10 3/mcL Normal 4.5-10.8 [facility] Comment on above: Performed By: #### G FR, CBC, ANEU, ADIFF, MG, BMP, HFP #### [address] [address] CBC W/Diff, Automatedon 09-0 3-2024 Absolute Lymph 0.70 X10 3/uL Low 0.83-4.51 [facility] Comment on above: Performed By: #### L 100.0100, L501.4021, L500.2500 ####[facility] [address] [place], [address] Absolute Neut 5.8 X10 3/uL Normal 2.0-7.7 [facility] Comment on above: Performed By: #### L 100.0100, L501.4021, L500.2500 ####[facility] [address] [place], [address] Basophils/100 WBC (Bld) 0.1 % Normal 0-1 [facility] Comment on above: Performed By: #### L 100.0100, L501.4021, L500.2500 ####[facility] [address] [place], [address] Eosinophils/100 WBC (Bld) 1.1 % Normal 0-5 [facility] Comment on above: Performed By: #### L 100.0100, L501.4021, L500.2500 ####[facility] [address] [place], [address] Erythrocyte distribution width (RBC) [Ratio] 15.7 % High 11.6-14.6 [facility] Comment on above: Performed By: #### L 100.0100, L501.4021, L500.2500 ####[facility] [address] [place], [address] Hematocrit (Bld) [Volume fraction] 33.4 % Low 40-54 [facility] Comment on above: Performed By: #### L 100.0100, L501.4021, L500.2500 ####[facility] [address] [place], [address] Hemoglobin (Bld) [Mass/Vol] 10.5 g/dL Low 13.0-16.5 [facility] Comment on above: Performed By: #### L 100.0100, L501.4021, L500.2500 ####[facility] [address] [place], [address] IG% 0.400 Normal 0.0-0.9 [facility] Comment on above: Result Comment: IG% - Immature Granulocytes (promyelocytes, myelocytes andmetamyelocytes) > 1% indicates that a LEFT SHIFT is Present. Performed By: #### L 100.0100, L501.4021, L500.2500 ####[facility] [address] [place], [address] Lymphocytes/100 WBC (Bld) 9.6 % Low 19-41 [facility] Comment on above: Performed By: #### L 100.0100, L501.4021, L500.2500 ####[facility] [address] [place], [address] MCH (RBC) [Entitic mass] 28.9 pg Normal 27.0-32.0 [facility] Comment on above: Performed By: #### L 100.0100, L501.4021, L500.2500 ####[facility] [address] [place], [address] MCHC (RBC) [Mass/Vol] 31.4 g/dL Low 32-36 [facility] Comment on above: Performed By: #### L 100.0100, L501.4021, L500.2500 ####[facility] [address] [place], [address] MCV (RBC) [Entitic vol] 92.0 fL Normal 80-94 [facility] Comment on above: Performed By: #### L 100.0100, L501.4021, L500.2500 ####[facility] [address] [place], [address] Monocytes/100 WBC (Bld) 8.9 % Normal 0-10 [facility] Comment on above: Performed By: #### L 100.0100, L501.4021, L500.2500 ####[facility] [address] [place], [address] Neutrophils/100 WBC (Bld) 79.9 % High 47-70 [facility] Comment on above: Performed By: #### L 100.0100, L501.4021, L500.2500 ####[facility] [address] [place], [address] Nucleated RBC (Bld) [#/Vol] 0 10*3/uL Normal 0-5 [facility] Comment on above: Performed By: #### L 100.0100, L501.4021, L500.2500 ####[facility] [address] [place], [address] Platelet mean volume (Bld) [Entitic vol] 12.7 fL High 6.2-12.0 [facility] Comment on above: Performed By: #### L 100.0100, L501.4021, L500.2500 ####[facility] [address] [place], [address] Platelets (Bld) [#/Vol] 155 10*3/uL Normal 150-450 [facility] Comment on above: Performed By: #### L 100.0100, L501.4021, L500.2500 ####[facility] [address] [place], [address] RBC (Bld) [#/Vol] 3.63 10*6/uL Low 4.6-6.2 [facility] Comment on above: Performed By: #### L 100.0100, L501.4021, L500.2500 ####[facility] [address] [place], [address] RDW SD 51.9 fl High 35.1-43.9 [facility] Comment on above: Performed By: #### L 100.0100, L501.4021, L500.2500 ####[facility] [address] [place], [address] WBC (Bld) [#/Vol] 7.3 10*3/uL Normal 4.4-11.0 [facility] Comment on above: Performed By: #### L 100.0100, L501.4021, L500.2500 ####[facility] [address] [place], [address] [facility] 01-03-2025 Albumin Level 3.0 G/dL Low 3.2-4.8 [facility] Comment on above: Performed By: #### G FR, CBC, ANEU, ADIFF, MG, BMP, HFP #### [place] [address] Albumin/Globulin [Mass ratio] 0.8 {ratio} Low 0.9-1.6 [facility] Comment on above: Performed By: #### G FR, CBC, ANEU, ADIFF, MG, BMP, HFP #### [address] [address] ALP [Catalytic activity/Vol] 107 U/L Normal 38-126 [facility] Comment on above: Performed By: #### G FR, CBC, ANEU, ADIFF, MG, BMP, HFP #### [place] [id number] ALT [Catalytic activity/Vol] 20 U/L Normal 12-55 [facility] Comment on above: Performed By: #### G FR, CBC, ANEU, ADIFF, MG, BMP, HFP #### [place] [id number] AST [Catalytic activity/Vol] 51 U/L High 8-34 [facility] Comment on above: Performed By: #### G FR, CBC, ANEU, ADIFF, MG, BMP, HFP #### [place] [id number] Bili Total 1.10 mg/dL Normal 0.20-1.20 [facility] Comment on above: Result Comment: Use of this assay is not recommended for patients undergoing treatment with eltrombopag due to the potential for falsely elevated results. Performed By: #### G FR, CBC, ANEU, ADIFF, MG, BMP, HFP #### [place] [id number] BUN/Creatinine Ratio 9.0 ratio Low 10.0-22.0 [facility] Comment on above: Performed By: #### G FR, CBC, ANEU, ADIFF, MG, BMP, HFP #### [address] [address] Calcium [Mass/Vol] 9.0 mg/dL Normal 8.7-10.4 [facility] Comment on above: Performed By: #### G FR, CBC, ANEU, ADIFF, MG, BMP, HFP #### [address] [address] Chloride [Moles/Vol] 109 mmol/L Normal 98-110 [facility] Comment on above: Performed By: #### G FR, CBC, ANEU, ADIFF, MG, BMP, HFP #### [address] [address] CO2 [Moles/Vol] 25 mmol/L Normal 22-32 [facility] Comment on above: Performed By: #### G FR, CBC, ANEU, ADIFF, MG, BMP, HFP #### [address] [address] Creatinine [Mass/Vol] 1.44 mg/dL High 0.60-1.40 [facility] Comment on above: Result Comment: Test ing performed on [employer] analyzer using enzymatic creatinine methodology. Performed By: #### G FR, CBC, ANEU, ADIFF, MG, BMP, HFP #### [address] [address] Electrolyte Balance 9.0 mEq/L Normal 4.0-15.0 [facility] Comment on above: Performed By: #### G FR, CBC, ANEU, ADIFF, MG, BMP, HFP #### [address] [address] Globulin 3.6 G/dL Normal 2.5-4.2 [facility] Comment on above: Performed By: #### G FR, CBC, ANEU, ADIFF, MG, BMP, HFP #### [address] [address] Glucose [Mass/Vol] 134 mg/dL High 82-115 [facility] Comment on above: Performed By: #### G FR, CBC, ANEU, ADIFF, MG, BMP, HFP #### [address] [address] Potassium [Moles/Vol] 4.5 mmol/L Normal 3.5-5.0 [facility] Comment on above: Performed By: #### G FR, CBC, ANEU, ADIFF, MG, BMP, HFP #### [address] [address] Sodium [Moles/Vol] 143 mmol/L Normal 136-145 [facility] Comment on above: Performed By: #### G FR, CBC, ANEU, ADIFF, MG, BMP, HFP #### [address] [address] Total Protein 6.6 G/dL Normal 5.7-8.2 [facility] Comment on above: Performed By: #### G FR, CBC, ANEU, ADIFF, MG, BMP, HFP #### [address] [address] Urea nitrogen [Mass/Vol] 13.0 mg/dL Normal 8.0-22.0 [facility] Comment on above: Performed By: #### G FR, CBC, ANEU, ADIFF, MG, BMP, HFP #### [address] [address] Chest 1 View (Portable)on Chest 1 View (Portable) Normal [facility] Emergency Department Summary on 01-03-2025 Emergency Department Summary Normal [facility] L501.4021on 01-03-2025 Trop T High Sen 1948 ng/L Invalid Interpretation Code <=22 [facility] Comment on above: Result Comment: Crit ical Result(s) Called at: by:??LUIS MAYS Resultsread back by same. Performed By: #### L 100.0100, L501.4021, L500.2500 ####[facility] [address] [place], [place], [id number] LABORATORYOrdered By: SYSTEM SYSTEM on 01-03-2025 aPTT Coag (Bld) [Time] 30.4 s Normal 25.0 - 35.0 seconds [facility] Comment on above: Interpretive Data: [...] Comment on above: Interpretive Data: Alison bourne [employer] (CHEST, 1992, 102:312S-25S) [...] ng/L Male: 0-54 ng/L Testing performed on [employer] analyzer using direct chemiluminescent technology. TSH Qn 3.371 mIU/mL Normal 0.550 - 4.780 mIU/mL ADM SS Lactate [Moles/Vol] 3.5 mmol/L High 0.5 - 2. 2 mmol/L ADM SS Natriuretic peptide.B prohormone N-Terminal IA [Mass/Vol] 4522 pg/mL High 0 - 1800 pg/mL ADM SS LACon 01-03-2025 Lactic Acid Lvl 1.7 mmol/L Normal 0.5-2.2 [facility] Comment on above: Order Comment: Order ed secondary to Lactic Acid result greater than or equal to 2.0 Performed By: #### G FR, CBC, ANEU, ADIFF, MG, BMP, HFP #### [place] [address] Lactic Acid Lvl 3.5 mmol/L High 0.5-2.2 [facility] Comment on above: Performed By: #### G FR, CBC, ANEU, ADIFF, MG, BMP, HFP #### [place] [address] MGon 01-03-2025 Magnesium [Mass/Vol] 1.9 mg/dL Normal 1.6-2.4 [facility] Comment on above: Performed By: #### G FR, CBC, ANEU, ADIFF, MG, BMP, HFP #### [place] [address] Magnesium [Mass/Vol] 2.0 mg/dL Normal 1.6-2.4 [facility] Comment on above: Performed By: #### G FR, CBC, ANEU, ADIFF, MG, BMP, HFP #### [place] [address] PBNPon 01-03-2025 Natriuretic peptide B (Bld) [Mass/Vol] 4739 pg/mL High 0-1800 [facility] Comment on above: Performed By: #### G FR, CBC, ANEU, ADIFF, MG, BMP, HFP #### [place] [address] Natriuretic peptide B (Bld) [Mass/Vol] 4522 pg/mL High 0-1800 [facility] Comment on above: Performed By: #### G FR, CBC, ANEU, ADIFF, MG, BMP, HFP #### [place] [address] PROon 01-03-2025 INR Coag (PPP) [Relative time] 1.3 {INR} Normal [facility] Comment on above: Result Comment: [employer] (CHEST, 1992, 102:312S-25S) recommended therapeutic range for oral anticoagulant therapy is: LOW RISK: Prophylaxis of venous thrombosis INR: 2.0-3.0 Treatment of pulmonary embolism 2.0-3.0 Prevention of systemic embolism 2.0-3.0 HIGH RISK: Mechanical prosthetic valves 2.5-3.5 Performed By: #### G FR, CBC, ANEU, ADIFF, MG, BMP, HFP #### [address] [address] PT Coag (PPP) [Time] 14.9 s High 9.0-14.4 [facility] Comment on above: Result Comment: Effe ctive 11/15/07, Protime results may be affected by some antibiotics (i.e. Ciprofloxacin, Azithromycin, Bactrim) which may potentiate the action of oral anticoagulants, with further increases in Protime/INR. Performed By: #### G FR, CBC, ANEU, ADIFF, MG, BMP, HFP #### [place] [id number] TROPHSon 01-03-2025 High Sensitivity Troponin I 7058 ng/L High 0-54 [facility] Comment on above: Result Comment: High Sensitive Troponin I Reference Ranges: Female: 0-34 ng/L Male: 0-54 ng/L Testing performed on [employer] analyzer using direct chemiluminescent technology. Performed By: #### G FR, CBC, ANEU, ADIFF, MG, BMP, HFP #### [place] [address] TSHon 01-03-2025 TSH 3.371 mIU/mL Normal 0.550-4.78 0 [facility] Comment on above: Performed By: #### G FR, CBC, ANEU, ADIFF, MG, BMP, HFP #### [place] [address] Troponin T HS 2 HRon 025 Trop T High Sen 1731 ng/L Invalid Interpretation Code <=22 [facility] Comment on above: Result Comment: Crit ical Result(s) Called at: by: NAJMA MAYS??Resultsread back by same. Performed By: #### L 499.0042 ####[facility] [address] [place], [address] Trop T High Sen 1965 ng/L Invalid Interpretation Code <=22 [facility] Comment on above: Result Comment: INCO RRECTLY RECEIVEDCritical Result(s) Called at: by:LUIS MAYS??Results readback by same. Performed By: #### L 499.0042 ####[facility] [id number] [place], [place], [id number] Troponin T HS 4 HRon 025 Trop T High Sen 1771 ng/L Invalid Interpretation Code <=22 [facility] Comment on above: Result Comment: Crit ical Result(s) Called at: by:??KEVIN SIMENTAL Results readback by same. Performed By: #### L 499.0043 ####[facility] [address] [place], [place], [id number] 12 Lead EKGon 01-01-2025 12 Lead EKG Normal [facility] Absolute lymphocyte countOrd ered By: Shaan Hirsch on 01-01-2025 Lymphocytes Auto (Unsp spec) [#/Vol] 0.81 10*3/uL Low 0.83-4.51 [facility] Anion gap in Serum or Plasma Ordered By: Shaan Hirsch on 01-01-2025 Anion gap [Moles/Vol] 11 mmol/L 5-15 [facility] Automated lymphocyte count a s percentage of total leukocytesOrdered By: Shaan Hirsch on 01-01-2025 Lymphocytes/100 WBC Auto (Unsp spec) 12.6 % Low 19-41 [facility] BUN/creatinine ratioOrdered By: Shaan Hirsch on 01-01-2025 Urea nitrogen/Creatinine [Mass ratio] 10.7 mg/mg 10-20 [facility] Basic Metabolic Profile (BMP )on 01-01-2025 BUN/CRE 10.7 RATIO Normal - [facility] Comment on above: Performed By: #### L 501.4021, L100.0100, L500.2500 ####[facility] [address] [place], [place], [id number] Calcium [Mass/Vol] 8.9 mg/dL Normal 7.6-11.0 [facility] Comment on above: Performed By: #### L 501.4021, L100.0100, L500.2500 ####[facility] [address] [place], [address] Chloride [Moles/Vol] 106 mmol/L Normal 98-108 [facility] Comment on above: Performed By: #### L 501.4021, L100.0100, L500.2500 ####[facility] [address] [place], [address] CO2 [Moles/Vol] 22.5 mmol/L Normal 21.0-32.0 [facility] Comment on above: Performed By: #### L 501.4021, L100.0100, L500.2500 ####[facility] [address] [place], [address] Creatinine [Mass/Vol] 1.36 mg/dL High 0.70-1.20 [facility] Comment on above: Performed By: #### L 501.4021, L100.0100, L500.2500 ####[facility] [address] [place], [address] ECRCL 52.44 ml/min Normal 50-250 [facility] Comment on above: Performed By: #### L 501.4021, L100.0100, L500.2500 ####[facility] [address] [place], [address] GAP 11 Normal 5-15 [facility] Comment on above: Performed By: #### L 501.4021, L100.0100, L500.2500 ####[facility] [address] [place], [address] GFR/1.73 sq M.predicted among non-blacks MDRD (S/P/Bld) [Vol rate/Area] 53 mL/min/{1.73_m2} Low >60 [facility] Comment on above: Result Comment: mL/m in/1.73m2 CKD-EPI Creatinine Equation (2020) Performed By: #### L 501.4021, L100.0100, L500.2500 ####[facility] [address] [place], [address] Glucose [Mass/Vol] 142 mg/dL High 70-99 [facility] Comment on above: Performed By: #### L 501.4021, L100.0100, L500.2500 ####[facility] [address] [place], [address] Potassium [Moles/Vol] 4.2 mmol/L Normal 3.3-5.1 [facility] Comment on above: Performed By: #### L 501.4021, L100.0100, L500.2500 ####[facility] [address] [place], [address] Sodium [Moles/Vol] 140 mmol/L Normal 133-145 [facility] Comment on above: Performed By: #### L 501.4021, L100.0100, L500.2500 ####[facility] [address] [place], [address] Urea nitrogen [Mass/Vol] 15 mg/dL Normal 4-19 [facility] Comment on above: Performed By: #### L 501.4021, L100.0100, L500.2500 ####[facility] [address] [place], [address] Basophil percentageOrdered B y: Shaan Hirsch on 01-01-2025 Basophils/100 WBC (Bld) 0.3 % 0-1 [facility] CBC W/Diff, Automatedon Absolute Lymph 0.81 X10 3/uL Low 0.83-4.51 [facility] Comment on above: Performed By: #### L 501.4021, L100.0100, L500.2500 ####[facility] [address] [place], [address] Absolute Neut 4.8 X10 3/uL Normal 2.0-7.7 [facility] Comment on above: Performed By: #### L 501.4021, L100.0100, L500.2500 ####[facility] [address] [place], [address] Basophils/100 WBC (Bld) 0.3 % Normal 0-1 [facility] Comment on above: Performed By: #### L 501.4021, L100.0100, L500.2500 ####[facility] [address] [place], [address] Eosinophils/100 WBC (Bld) 1.6 % Normal 0-5 [facility] Comment on above: Performed By: #### L 501.4021, L100.0100, L500.2500 ####[facility] [address] [place], [address] Erythrocyte distribution width (RBC) [Ratio] 15.5 % High 11.6-14.6 [facility] Comment on above: Performed By: #### L 501.4021, L100.0100, L500.2500 ####[facility] [address] [place], [address] Hematocrit (Bld) [Volume fraction] 35.9 % Low 40-54 [facility] Comment on above: Performed By: #### L 501.4021, L100.0100, L500.2500 ####[facility] [address] [place], [address] Hemoglobin (Bld) [Mass/Vol] 11.1 g/dL Low 13.0-16.5 [facility] Comment on above: Performed By: #### L 501.4021, L100.0100, L500.2500 ####[facility] [address] [place], [address] IG% 0.300 Normal 0.0-0.9 [facility] Comment on above: Result Comment: IG% - Immature Granulocytes (promyelocytes, myelocytes andmetamyelocytes) > 1% indicates that a LEFT SHIFT is Present. Performed By: #### L 501.4021, L100.0100, L500.2500 ####[facility] [address] [place], [address] Lymphocytes/100 WBC (Bld) 12.6 % Low 19-41 [facility] Comment on above: Performed By: #### L 501.4021, L100.0100, L500.2500 ####[facility] [address] [place], [address] MCH (RBC) [Entitic mass] 28.4 pg Normal 27.0-32.0 [facility] Comment on above: Performed By: #### L 501.4021, L100.0100, L500.2500 ####[facility] [address] [place], [address] MCHC (RBC) [Mass/Vol] 30.9 g/dL Low 32-36 [facility] Comment on above: Performed By: #### L 501.4021, L100.0100, L500.2500 ####[facility] [address] [place], [address] MCV (RBC) [Entitic vol] 91.8 fL Normal 80-94 [facility] Comment on above: Performed By: #### L 501.4021, L100.0100, L500.2500 ####[facility] [address] [place], [address] Monocytes/100 WBC (Bld) 9.7 % Normal 0-10 [facility] Comment on above: Performed By: #### L 501.4021, L100.0100, L500.2500 ####[facility] [address] [place] [place], [address] Neutrophils/100 WBC (Bld) 75.5 % High 47-70 [facility] Comment on above: Performed By: #### L 501.4021, L100.0100, L500.2500 ####[facility] [address] [place], [address] Nucleated RBC (Bld) [#/Vol] 0 10*3/uL Normal 0-5 [facility] Comment on above: Performed By: #### L 501.4021, L100.0100, L500.2500 ####[facility] [address] [place], [address] Platelet mean volume (Bld) [Entitic vol] 12.8 fL High 6.2-12.0 [facility] Comment on above: Performed By: #### L 501.4021, L100.0100, L500.2500 ####[facility] [address] [place], [address] Platelets (Bld) [#/Vol] 142 10*3/uL Low 150-450 [facility] Comment on above: Performed By: #### L 501.4021, L100.0100, L500.2500 ####[facility] [address] [place], [address] RBC (Bld) [#/Vol] 3.91 10*6/uL Low 4.6-6.2 [facility] Comment on above: Performed By: #### L 501.4021, L100.0100, L500.2500 ####[facility] [address] [place], [address] RDW SD 50.7 fl High 35.1-43.9 [facility] Comment on above: Performed By: #### L 501.4021, L100.0100, L500.2500 ####[facility] [address] [place], [address] WBC (Bld) [#/Vol] 6.4 10*3/uL Normal 4.4-11.0 [facility] Comment on above: Performed By: #### L 501.4021, L100.0100, L500.2500 ####[facility] [address] [place], [address] Carbon dioxide, total [Moles /volume] in Central venous bloodOrdered By: Shaan Hirsch on 01-01-2025 CO2 [Moles/Vol] 22.5 mmol/L 21.0-32.0 [facility] Chest 1 View (Portable)on Chest 1 View (Portable) Normal [facility] Chloride assayOrdered By: Charlie Hirsch on 01-01-2025 Chloride [Moles/Vol] 106 mmol/L 98-108 [facility] Emergency Department Summary on 01-01-2025 Emergency Department Summary Normal [facility] Eosinophil percentageOrdered By: Shaan Hirsch on 01-01-2025 Eosinophils/100 WBC (Bld) 1.6 % 0-5 [facility] Erythrocyte distribution wid th ratioOrdered By: Shaan Hirsch on 01-01-2025 Erythrocyte distribution width (RBC) [Ratio] 15.5 % High 11.6-14.6 [facility] Erythrocyte distribution wid th standard deviationOrdered By: Shaan Hirsch on 01-01-2025 Erythrocyte distribution width (RBC) [Ratio] 50.7 fl High 35.1-43.9 [facility] Glomerular filtration rate ( GFR) estimation/1.73 sq m using serum, plasma, or whole bOrdered By: Shaan Hirsch on 01-01-2025 GFR/1.73 sq M.predicted among non-blacks MDRD (S/P/Bld) [Vol rate/Area] 53 mL/min/{1.73_m2} Low >60 [facility] Hematocrit Auto (Bld) [Volum e fraction]Ordered By: Shaan Hirsch on 01-01-2025 Hematocrit (Bld) [Volume fraction] 35.9 % Low 40-54 [facility] Hemoglobin measurementOrdere d By: Shaan Hirsch on 01-01-2025 Hemoglobin (Bld) [Mass/Vol] 11.1 g/dL Low 13.0-16.5 [facility] Immature granulocytes/100 WB C Auto (Bld)Ordered By: Shaan Hirsch on 01-01-2025 Immature granulocytes/100 WBC (Bld) 0.300 % 0.0-0.9 [facility] L501.4021on 01-01-2025 Trop T High Sen 119 ng/L Invalid Interpretation Code <=22 [facility] Comment on above: Result Comment: Crit ical Result(s) Called at 01/01/2025-10:06 by Seymour Toledo.??Results read back by same. Performed By: #### L 501.4021, L100.0100, L500.2500 ####[facility] [address] [place], [address] MCV (mean corpuscular volume ) determinationOrdered By: Shaan Hirsch on 01-01-2025 MCV (RBC) [Entitic vol] 91.8 fL 80-94 [facility] Mean corpuscular hemoglobin (MCH) determinationOrdered By: Shaan Hirsch on 01-01-2025 MCH (RBC) [Entitic mass] 28.4 pg 27.0-32.0 [facility] Monocyte percentageOrdered B y: Shaan Hirsch on 01-01-2025 Monocytes/100 WBC (Bld) 9.7 % 0-10 [facility] Neutrophil percentageOrdered By: Shaantrung Hirsch on 01-01-2025 Neutrophils/100 WBC (Bld) 75.5 % High 47-70 [facility] Platelet countOrdered By: Charlie Hirsch on 01-01-2025 Platelets (Bld) [#/Vol] 142 10*3/uL Low 150-450 [facility] Potassium measurement (mass/ volume)Ordered By: Shaan Hirsch on 01-01-2025 Potassium (Unsp spec) [Mass/Vol] 4.2 mmol/L 3.3-5.1 [facility] RBC Auto (Bld) [#/Vol]Ordere d By: Shaan Hirsch on 01-01-2025 RBC (Bld) [#/Vol] 3.91 10*6/uL Low 4.6-6.2 [facility] Serum creatinine measurement (mass/volume)Ordered By: Shaan Hirsch on 01-01-2025 Creatinine [Mass/Vol] 1.36 mg/dL High 0.70-1.20 [facility] Serum glucose measurement (m ass/volume)Ordered By: Shaan Hirsch on 01-01-2025 Glucose [Mass/Vol] 142 mg/dL High 70-99 [facility] Serum or plasma calcium francine urement (mass/volume)Ordered By: Shaan Hirsch on 01-01-2025 Calcium [Mass/Vol] 8.9 mg/dL 7.6-11.0 [facility] Serum or plasma urea nitroge n measurement (mass/volume)Ordered By: Shaan Hirsch on 01-01-2025 Urea nitrogen [Mass/Vol] 15 mg/dL 4-19 [facility] Sodium levelOrdered By: Shaan Hirsch on 01-01-2025 Sodium [Moles/Vol] 140 mmol/L 133-145 [facility] Troponin T HS 2 HRon 025 Trop T High Sen 106 ng/L Invalid Interpretation Code <=22 [facility] Comment on above: Result Comment: Crit ical Result(s) Called at 01/01/2025-11:44 by Seymour Toledo.??Results read back by same. Performed By: #### L 499.0042 ####[facility] [address] [place], [place], [address] Troponin T HS 4 HRon 025 Trop T High Sen Normal <=22 [facility] Comment on above: Result Comment: Canc elled via OM: Order cancelled - Patient discharged Performed By: #### L 499.0043 ####[facility] [address] [place], [address] Troponin T.cardiac [Mass/vol ume] in Serum or Plasma by High sensitivity methodOrdered By: Shaan Hirsch on 01-01-2025 Troponin T.cardiac High sensitivity method [Mass/Vol] 106 ng/L High <22 [facility] Troponin T.cardiac High sensitivity method [Mass/Vol] 119 ng/L High <22 [facility] White blood cell (WBC) count Ordered By: Shaan Hirsch on 01-01-2025 WBC (Bld) [#/Vol] 6.4 10*3/uL 4.4-11.0 [facility] Absolute lymphocyte countOrd ered By: Boyd Rock on 12-28-2024 Lymphocytes Auto (Unsp spec) [#/Vol] 1.02 10*3/uL 0.83-4.51 [facility] Anion gap in Serum or Plasma Ordered By: Boyd Rock on 12-28-2024 Anion gap [Moles/Vol] 10 mmol/L 5-15 [facility] Automated lymphocyte count a s percentage of total leukocytesOrdered By: Boyd Rock on 12-28-2024 Lymphocytes/100 WBC Auto (Unsp spec) 17.4 % Low 19-41 [facility] BUN/creatinine ratioOrdered By: Boyd Rock on 12-28-2024 Urea nitrogen/Creatinine [Mass ratio] 7.5 mg/mg Low 10-20 [facility] Basophil percentageOrdered B y: Boyd Rock on 12-28-2024 Basophils/100 WBC (Bld) 0.3 % 0-1 [facility] Carbon dioxide, total [Moles /volume] in Central venous bloodOrdered By: Boyd Rock on 12-28-2024 CO2 [Moles/Vol] 22.0 mmol/L 21.0-32.0 [facility] Chloride assayOrdered By: Susanna Rock on 12-28-2024 Chloride [Moles/Vol] 109 mmol/L High 98-108 [facility] Eosinophil percentageOrdered By: Boyd Rock on 12-28-2024 Eosinophils/100 WBC (Bld) 2.4 % 0-5 [facility] Erythrocyte distribution wid th ratioOrdered By: Boyd Rock on 12-28-2024 Erythrocyte distribution width (RBC) [Ratio] 14.8 % High 11.6-14.6 [facility] Erythrocyte distribution wid th standard deviationOrdered By: Boyd Rock on 12-28-2024 Erythrocyte distribution width (RBC) [Ratio] 48.7 fl High 35.1-43.9 [facility] Glomerular filtration rate ( GFR) estimation/1.73 sq m using serum, plasma, or whole bOrdered By: Boyd Rock on 12-28-2024 GFR/1.73 sq M.predicted among non-blacks MDRD (S/P/Bld) [Vol rate/Area] 52 mL/min/{1.73_m2} Low >60 [facility] Hematocrit Auto (Bld) [Volum e fraction]Ordered By: Boyd Rock on 12-28-2024 Hematocrit (Bld) [Volume fraction] 30.9 % Low 40-54 [facility] Hemoglobin measurementOrdere d By: Boyd Rock on 12-28-2024 Hemoglobin (Bld) [Mass/Vol] 9.8 g/dL Low 13.0-16.5 [facility] Immature granulocytes/100 WB C Auto (Bld)Ordered By: Boyd Rock on 12-28-2024 Immature granulocytes/100 WBC (Bld) 0.300 % 0.0-0.9 [facility] MCV (mean corpuscular volume ) determinationOrdered By: Boyd Rock on 12-28-2024 MCV (RBC) [Entitic vol] 91.2 fL 80-94 [facility] Mean corpuscular hemoglobin (MCH) determinationOrdered By: garrysouthsidebrittni Rock on 12-28-2024 MCH (RBC) [Entitic mass] 28.9 pg 27.0-32.0 [facility] Monocyte percentageOrdered B y: Boyd Rock on 12-28-2024 Monocytes/100 WBC (Bld) 9.9 % 0-10 [facility] Neutrophil percentageOrdered By: [facility] Center[facility] on 12-28-2024 Neutrophils/100 WBC (Bld) 69.7 % 47-70 [facility] Platelet countOrdered By: Susanna Rock on 12-28-2024 Platelets (Bld) [#/Vol] 112 10*3/uL Low 150-450 [facility] Potassium measurement (mass/ volume)Ordered By: Boyd Rock on 12-28-2024 Potassium (Unsp spec) [Mass/Vol] 3.8 mmol/L 3.3-5.1 [facility] RBC Auto (Bld) [#/Vol]Ordere d By: Boyd Rock on 12-28-2024 RBC (Bld) [#/Vol] 3.39 10*6/uL Low 4.6-6.2 [facility] Serum creatinine measurement (mass/volume)Ordered By: Boyd Rock on 12-28-2024 Creatinine [Mass/Vol] 1.39 mg/dL High 0.70-1.20 [facility] Serum glucose measurement (m ass/volume)Ordered By: Boyd Rock on 12-28-2024 Glucose [Mass/Vol] 131 mg/dL High 70-99 [facility] Serum or plasma calcium francine urement (mass/volume)Ordered By: Boyd Rock on 12-28-2024 Calcium [Mass/Vol] 7.9 mg/dL 7.6-11.0 [facility] Serum or plasma urea nitroge n measurement (mass/volume)Ordered By: Boyd Rock on 12-28-2024 Urea nitrogen [Mass/Vol] 10 mg/dL 4-19 [facility] Sodium levelOrdered By: Lupe parkinson Garrymiveronica on 12-28-2024 Sodium [Moles/Vol] 141 mmol/L 133-145 [facility] White blood cell (WBC) count Ordered By: Susannagarryabbeybrittni Castañedamiveronica on 12-28-2024 WBC (Bld) [#/Vol] 5.9 10*3/uL 4.4-11.0 [facility] Bilirubin Test strip Ql (U)O rdered By: Boyd Rock on 12-27-2024 Bilirubin Ql (U) Negative Negative [facility] Ketones Test strip Ql (U)Ord ered By: Boyd Rock on 12-27-2024 Ketones Ql (U) Negative Negative [facility] Nitrite Test strip Ql (U)Ord ered By: Boyd Rock on 12-27-2024 Nitrite Ql (U) Negative Negative [facility] Protein Test strip Ql (U)Ord ered By: Boyd Rock on 12-27-2024 Protein Ql (U) Negative Negative [facility] Urine clarityOrdered By: Anastacio Rock on 12-27-2024 Clarity (U) Cloudy Clear [facility] Urine color determinationOrd ered By: Boyd Rock on 12-27-2024 Color (U) Straw Yellow [facility] Urine cultureOrdered By: Anastacio Rock on 12-27-2024 Bacteria identified Cx Nom (U) Staphylococcus aureus Abnormal [facility] Urine glucose detectionOrder ed By: Boyd Rock on 12-27-2024 Glucose Ql (U) 1000 mg/dl High Normal [facility] Urine leukocyte esterase det ection by dipstickOrdered By: Boyd Rock on 12-27-2024 Leukocyte esterase Test strip Ql (U) 100 /ul High Negative [facility] Urine pHOrdered By: Grace Rock on 12-27-2024 pH (U) 6.0 [pH] 5.0 - 8.0 [facility] Urine specific gravity measu rementOrdered By: Boyd Rock on 12-27-2024 Specific gravity (U) [Rel density] 1.010 1.002-1.03 0 [facility] Urine urobilinogen measureme ntOrdered By: Boyd Rock on 12-27-2024 Urobilinogen Ql (U) Normal mg/dl Normal [facility] Absolute lymphocyte countOrd ered By: Eladio Melendez on 12-26-2024 Lymphocytes Auto (Unsp spec) [#/Vol] 0.80 10*3/uL Low 0.83-4.51 [facility] Anion gap in Serum or Plasma Ordered By: Eladio Melendez on 12-26-2024 Anion gap [Moles/Vol] 9 mmol/L 5-15 [facility] Automated lymphocyte count a s percentage of total leukocytesOrdered By: Eladio Melendez on 12-26-2024 Lymphocytes/100 WBC Auto (Unsp spec) 12.6 % Low 19-41 [facility] BUN/creatinine ratioOrdered By: Eladio Melendez on 12-26-2024 Urea nitrogen/Creatinine [Mass ratio] 6.2 mg/mg Low 10- [facility] Basic Metabolic Profile (BMP )on 12-26-2024 BUN/CRE 6.2 RATIO Low - [facility] Comment on above: Performed By: #### L 501.2300, L500.2500, L501.5200, L100.0100 ####[facility] [address] [place], [address] Calcium [Mass/Vol] 8.0 mg/dL Normal 7.6-11.0 [facility] Comment on above: Performed By: #### L 501.2300, L500.2500, L501.5200, L100.0100 ####[facility] [address] [place], [address] Chloride [Moles/Vol] 109 mmol/L High 98-108 [facility] Comment on above: Performed By: #### L 501.2300, L500.2500, L501.5200, L100.0100 ####[facility] [address] [place], [address] CO2 [Moles/Vol] 22.2 mmol/L Normal 21.0-32.0 [facility] Comment on above: Performed By: #### L 501.2300, L500.2500, L501.5200, L100.0100 ####[facility] [address] [place], [address] Creatinine [Mass/Vol] 1.33 mg/dL High 0.70-1.20 [facility] Comment on above: Performed By: #### L 501.2300, L500.2500, L501.5200, L100.0100 ####[facility] [address] [place], [address] ECRCL 52.07 ml/min Normal 50-250 [facility] Comment on above: Performed By: #### L 501.2300, L500.2500, L501.5200, L100.0100 ####[facility] [address] [place], [address] GAP 9 Normal 5-15 [facility] Comment on above: Performed By: #### L 501.2300, L500.2500, L501.5200, L100.0100 ####[facility] [address] [place], [address] GFR/1.73 sq M.predicted among non-blacks MDRD (S/P/Bld) [Vol rate/Area] 54 mL/min/{1.73_m2} Low >60 [facility] Comment on above: Result Comment: mL/m in/1.73m2 CKD-EPI Creatinine Equation (2020) Performed By: #### L 501.2300, L500.2500, L501.5200, L100.0100 ####[facility] [address] [place], [address] Glucose [Mass/Vol] 124 mg/dL High 70-99 [facility] Comment on above: Performed By: #### L 501.2300, L500.2500, L501.5200, L100.0100 ####[facility] [address] [place], [address] Potassium [Moles/Vol] 3.7 mmol/L Normal 3.3-5.1 [facility] Comment on above: Performed By: #### L 501.2300, L500.2500, L501.5200, L100.0100 ####[facility] [address] [place], [address] Sodium [Moles/Vol] 140 mmol/L Normal 133-145 [facility] Comment on above: Performed By: #### L 501.2300, L500.2500, L501.5200, L100.0100 ####[facility] [address] [place], [address] Urea nitrogen [Mass/Vol] 8 mg/dL Normal 4-19 [facility] Comment on above: Performed By: #### L 501.2300, L500.2500, L501.5200, L100.0100 ####[facility] [address] [place], [address] Basophil percentageOrdered B y: Eladio Melendez on 12-26-2024 Basophils/100 WBC (Bld) 0.3 % 0-1 [facility] Bedside Glucoseon 12-26-2024 FINGERSTICK GLU 131 mg/dL High 74-106 [facility] Comment on above: Result Comment: WILDA GEMENT OF PATIENT CARE PER NURSING PROTOCOL Performed By: #### L 501.080 ####[facility] [address] [place], [address] FINGERSTICK GLU 132 mg/dL High 74-106 [facility] Comment on above: Result Comment: WILDA GEMENT OF PATIENT CARE PER NURSING PROTOCOL Performed By: #### L 501.080 ####[facility] [address] [place], [address] CBC W/Diff, Automatedon 12-02 PLT EST SLT DEC Normal ADEQ [facility] Comment on above: Performed By: #### L 501.2300, L500.2500, L501.5200, L100.0100 ####[facility] [address] [place], [address] Carbon dioxide, total [Moles /volume] in Central venous bloodOrdered By: Eladio Melendez on 12-26-2024 CO2 [Moles/Vol] 22.2 mmol/L 21.0-32.0 [facility] Chloride assayOrdered By: Magalie Melendez on 12-26-2024 Chloride [Moles/Vol] 109 mmol/L High 98-108 [facility] Eosinophil percentageOrdered By: Eladio Melendez on 12-26-2024 Eosinophils/100 WBC (Bld) 0.9 % 0-5 [facility] Erythrocyte distribution wid th ratioOrdered By: Eladio Melendez on 12-26-2024 Erythrocyte distribution width (RBC) [Ratio] 14.1 % 11.6-14.6 [facility] Erythrocyte distribution wid th standard deviationOrdered By: Eladio Melendez on 12-26-2024 Erythrocyte distribution width (RBC) [Ratio] 46.0 fl High 35.1-43.9 [facility] Glomerular filtration rate ( GFR) estimation/1.73 sq m using serum, plasma, or whole bOrdered By: Eladio Melendez on 12-26-2024 GFR/1.73 sq M.predicted among non-blacks MDRD (S/P/Bld) [Vol rate/Area] 54 mL/min/{1.73_m2} Low >60 [facility] deOrdered By: Eladio Melendez on 12-26-2024 Glucose [Mass/Vol] 131 mg/dL High 74-106 [facility] Hematocrit Auto (Bld) [Volum e fraction]Ordered By: Eladio Melendez on 12-26-2024 Hematocrit (Bld) [Volume fraction] 32.3 % Low 40-54 [facility] Hemoglobin measurementOrdere d By: Eladio Melendez on 12-26-2024 Hemoglobin (Bld) [Mass/Vol] 10.3 g/dL Low 13.0-16.5 [facility] Immature granulocytes/100 WB C Auto (Bld)Ordered By: Eladio Melendez on 12-26-2024 Immature granulocytes/100 WBC (Bld) 0.500 % 0.0-0.9 [facility] MCV (mean corpuscular volume ) determinationOrdered By: Eladio Melendez on 12-26-2024 MCV (RBC) [Entitic vol] 90.0 fL 80-94 [facility] [facility] Magnesium[facility] 12-26-2024 Magnesium [Mass/Vol] 1.7 mg/dL Normal 1.5-2.2 [facility] Comment on above: Performed By: #### L 501.2300, L500.2500, L501.5200, L100.0100 ####[facility] [address] [place], [address] Magnesium measurement (mass/ volume)Ordered By: Eladio Melendez on 12-26-2024 Magnesium (Unsp spec) [Mass/Vol] 1.7 mg/dL 1.5-2.2 [facility] Mean corpuscular hemoglobin (MCH) determinationOrdered By: Eladio Melendez on 12-26-2024 MCH (RBC) [Entitic mass] 28.7 pg 27.0-32.0 [facility] Monocyte percentageOrdered B y: Eladio Melendez on 12-26-2024 Monocytes/100 WBC (Bld) 9.5 % 0-10 [facility] Neutrophil percentageOrdered By: Eladio Melendez on 12-26-2024 Neutrophils/100 WBC (Bld) 76.2 % High 47-70 [facility] Phosphoruson 12-26-2024 Phosphate [Mass/Vol] 2.2 mg/dL Low 2.7-4.5 [facility] Comment on above: Performed By: #### L 501.2300, L500.2500, L501.5200, L100.0100 ####[facility] [address] [place], [address] Platelet countOrdered By: Magalie Melendez on 12-26-2024 Platelets (Bld) [#/Vol] 92 10*3/uL Low 150-450 [facility] Platelet estimateOrdered By: Eladio Melendez on 12-26-2024 Platelets LM Ql (Bld) SLT DEC ADEQ [facility] Potassium measurement (mass/ volume)Ordered By: Eladio Melendez on 12-26-2024 Potassium (Unsp spec) [Mass/Vol] 3.7 mmol/L 3.3-5.1 [facility] RBC Auto (Bld) [#/Vol]Ordere d By: Eladio Melendez on 08-26-2025 RBC (Bld) [#/Vol] 3.59 10*6/uL Low 4.6-6.2 [facility] Serum creatinine measurement (mass/volume)Ordered By: Eladio Melendez on 12-26-2024 Creatinine [Mass/Vol] 1.33 mg/dL High 0.70-1.20 [facility] Serum glucose measurement (m ass/volume)Ordered By: Eladio Melendez on 12-26-2024 Glucose [Mass/Vol] 124 mg/dL High 70-99 [facility] Serum or plasma calcium francine urement (mass/volume)Ordered By: Eladio Melendez on 12-26-2024 Calcium [Mass/Vol] 8.0 mg/dL 7.6-11.0 [facility] Serum or plasma urea nitroge n measurement (mass/volume)Ordered By: Eladio Melendez on 12-26-2024 Urea nitrogen [Mass/Vol] 8 mg/dL 4-19 [facility] Sodium levelOrdered By: Fei Melendez on 12-26-2024 Sodium [Moles/Vol] 140 mmol/L 133-145 [facility] White blood cell (WBC) count Ordered By: Eladio Melendez on 12-26-2024 WBC (Bld) [#/Vol] 6.3 10*3/uL 4.4-11.0 [facility] 12 Lead EKGon 12-25-2024 12 Lead EKG Normal [facility] Basic Metabolic Profile (BMP )on 12-25-2024 BUN/CRE 6.6 RATIO Low 10-20 [facility] Comment on above: Performed By: #### L 100.0100, L500.2500, L501.2300, L501.5200 ####[facility] [address] [place], [place], [address] Calcium [Mass/Vol] 8.3 mg/dL Normal 7.6-11.0 [facility] Comment on above: Performed By: #### L 100.0100, L500.2500, L501.2300, L501.5200 ####[facility] [address] [place], [address] Chloride [Moles/Vol] 106 mmol/L Normal 98-108 [facility] Comment on above: Performed By: #### L 100.0100, L500.2500, L501.2300, L501.5200 ####[facility] [address] [place], [address] CO2 [Moles/Vol] 19.8 mmol/L Low 21.0-32.0 [facility] Comment on above: Performed By: #### L 100.0100, L500.2500, L501.2300, L501.5200 ####[facility] [address] [place], [address] Creatinine [Mass/Vol] 1.42 mg/dL High 0.70-1.20 [facility] Comment on above: Performed By: #### L 100.0100, L500.2500, L501.2300, L501.5200 ####[facility] [address] [place], [address] ECRCL 49.25 ml/min Low 50-250 [facility] Comment on above: Performed By: #### L 100.0100, L500.2500, L501.2300, L501.5200 ####[facility] [address] [place], [address] GAP 13 Normal 5-15 [facility] Comment on above: Performed By: #### L 100.0100, L500.2500, L501.2300, L501.5200 ####[facility] [address] [place], [address] GFR/1.73 sq M.predicted among non-blacks MDRD (S/P/Bld) [Vol rate/Area] 50 mL/min/{1.73_m2} Low >60 [facility] Comment on above: Result Comment: mL/m in/1.73m2 CKD-EPI Creatinine Equation (2020) Performed By: #### L 100.0100, L500.2500, L501.2300, L501.5200 ####[facility] [address] [place], [address] Glucose [Mass/Vol] 105 mg/dL High 70-99 [facility] Comment on above: Performed By: #### L 100.0100, L500.2500, L501.2300, L501.5200 ####[facility] [address] [place], [address] Potassium [Moles/Vol] 3.4 mmol/L Normal 3.3-5.1 [facility] Comment on above: Performed By: #### L 100.0100, L500.2500, L501.2300, L501.5200 ####[facility] [address] [place], [address] Sodium [Moles/Vol] 139 mmol/L Normal 133-145 [facility] Comment on above: Performed By: #### L 100.0100, L500.2500, L501.2300, L501.5200 ####[facility] [address] [place], [address] Urea nitrogen [Mass/Vol] 9 mg/dL Normal 4-19 [facility] Comment on above: Performed By: #### L 100.0100, L500.2500, L501.2300, L501.5200 ####[facility] [address] [place], [address] Bedside Glucoseon 12-25-2024 FINGERSTICK GLU 140 mg/dL High 74-106 [facility] Comment on above: Result Comment: WILDA BARROSO OF PATIENT CARE PER NURSING PROTOCOL Performed By: #### L 501.080 ####[facility] [address] [place], [address] FINGERSTICK GLU 81 mg/dL Normal 74-106 [facility] Comment on above: Result Comment: WILDA GEMENT OF PATIENT CARE PER NURSING PROTOCOL Performed By: #### L 501.080 ####[facility] [address] [place], [address] FINGERSTICK GLU 115 mg/dL High 74-106 [facility] Comment on above: Result Comment: WILDA GEMENT OF PATIENT CARE PER NURSING PROTOCOL Performed By: #### L 501.080 ####[facility] [address] [place], [address] FINGERSTICK GLU 102 mg/dL Normal 74-106 [facility] Comment on above: Result Comment: WILDA GEMENT OF PATIENT CARE PER NURSING PROTOCOL Performed By: #### L 501.080 ####[facility] [address] [place], [address] CBC W/Diff, Automatedon 12-02 Absolute Lymph 1.00 X10 3/uL Normal 0.83-4.51 [facility] Comment on above: Performed By: #### L 100.0100, L500.2500, L501.2300, L501.5200 ####[facility] [address] [place], [address] Absolute Neut 5.3 X10 3/uL Normal 2.0-7.7 [facility] Comment on above: Performed By: #### L 100.0100, L500.2500, L501.2300, L501.5200 ####[facility] [address] [place], [address] Basophils/100 WBC (Bld) 0.3 % Normal 0-1 [facility] Comment on above: Performed By: #### L 100.0100, L500.2500, L501.2300, L501.5200 ####[facility] [address] [place], [address] Eosinophils/100 WBC (Bld) 1.1 % Normal 0-5 [facility] Comment on above: Performed By: #### L 100.0100, L500.2500, L501.2300, L501.5200 ####[facility] [address] [place], [address] Erythrocyte distribution width (RBC) [Ratio] 14.2 % Normal 11.6-14.6 [facility] Comment on above: Performed By: #### L 100.0100, L500.2500, L501.2300, L501.5200 ####[facility] [address] [place], [address] Hematocrit (Bld) [Volume fraction] 30.7 % Low 40-54 [facility] Comment on above: Performed By: #### L 100.0100, L500.2500, L501.2300, L501.5200 ####[facility] [address] [place], [address] Hemoglobin (Bld) [Mass/Vol] 10.2 g/dL Low 13.0-16.5 [facility] Comment on above: Performed By: #### L 100.0100, L500.2500, L501.2300, L501.5200 ####[facility] [address] [place], [address] IG% 0.300 Normal 0.0-0.9 [facility] Comment on above: Result Comment: IG% - Immature Granulocytes (promyelocytes, myelocytes andmetamyelocytes) > 1% indicates that a LEFT SHIFT is Present. Performed By: #### L 100.0100, L500.2500, L501.2300, L501.5200 ####[facility] [address] [place], [address] Lymphocytes/100 WBC (Bld) 14.2 % Low 19-41 [facility] Comment on above: Performed By: #### L 100.0100, L500.2500, L501.2300, L501.5200 ####[facility] [address] [place], [address] MCH (RBC) [Entitic mass] 29.0 pg Normal 27.0-32.0 [facility] Comment on above: Performed By: #### L 100.0100, L500.2500, L501.2300, L501.5200 ####[facility] [address] [place], [address] MCHC (RBC) [Mass/Vol] 33.2 g/dL Normal 32-36 [facility] Comment on above: Performed By: #### L 100.0100, L500.2500, L501.2300, L501.5200 ####[facility] [address] [place], [address] MCV (RBC) [Entitic vol] 87.2 fL Normal 80-94 [facility] Comment on above: Performed By: #### L 100.0100, L500.2500, L501.2300, L501.5200 ####[facility] [address] [place], [address] Monocytes/100 WBC (Bld) 8.4 % Normal 0-10 [facility] Comment on above: Performed By: #### L 100.0100, L500.2500, L501.2300, L501.5200 ####[facility] [address] [place], [address] Neutrophils/100 WBC (Bld) 75.7 % High 47-70 [facility] Comment on above: Performed By: #### L 100.0100, L500.2500, L501.2300, L501.5200 ####[facility] [address] [place], [address] Nucleated RBC (Bld) [#/Vol] 0 10*3/uL Normal 0-5 [facility] Comment on above: Performed By: #### L 100.0100, L500.2500, L501.2300, L501.5200 ####[facility] [address] [place], [address] Platelet mean volume (Bld) [Entitic vol] 12.9 fL High 6.2-12.0 [facility] Comment on above: Performed By: #### L 100.0100, L500.2500, L501.2300, L501.5200 ####[facility] [address] [place], [address] Platelets (Bld) [#/Vol] 110 10*3/uL Low 150-450 [facility] Comment on above: Performed By: #### L 100.0100, L500.2500, L501.2300, L501.5200 ####[facility] [address] [place], [address] RBC (Bld) [#/Vol] 3.52 10*6/uL Low 4.6-6.2 [facility] Comment on above: Performed By: #### L 100.0100, L500.2500, L501.2300, L501.5200 ####[facility] [address] [place], [address] RDW SD 44.7 fl High 35.1-43.9 [facility] Comment on above: Performed By: #### L 100.0100, L500.2500, L501.2300, L501.5200 ####[facility] [address] [place], [address] WBC (Bld) [#/Vol] 7.0 10*3/uL Normal 4.4-11.0 [facility] Comment on above: Performed By: #### L 100.0100, L500.2500, L501.2300, L501.5200 ####[facility] [address] [place], [address] Colonoscopy Reporton 025 Colonoscopy Report Normal [facility] EGD Reporton 12-25-2024 EGD Report Normal [facility] Immunohistochemical Stainson 12-25-2024 Immunohistochemical Stains Normal [facility] Comment on above: Performed By: #### P IMHARRIS ####[facility] [address] [place] [place], [address] MR/CON.PCM.GIon 12-25-2024 MR/CON.PCM.GI Normal [facility] MR/OP.PROVATon 12-25-2024 MR/OP.PROVAT Normal [facility] MR/OP.PROVAT Normal [facility] MR/POSTOP.ANEon 12-25-2024 MR/POSTOP.ANE Normal [facility] MR/SKZFXSXQ7pp 12-25-2024 MR/POSTOPAN2 Normal [facility] Magnesiumon 12-25-2024 Magnesium [Mass/Vol] 1.5 mg/dL Normal 1.5-2.2 [facility] Comment on above: Performed By: #### L 100.0100, L500.2500, L501.2300, L501.5200 ####[facility] [address] [place], [address] Phosphoruson 12-25-2024 Phosphate [Mass/Vol] 2.0 mg/dL Low 2.7-4.5 [facility] Comment on above: Performed By: #### L 100.0100, L500.2500, L501.2300, L501.5200 ####[facility] [address] [place], [address] Activated partial thrombopla stin time (aPTT) in platelet poor plasma by coagulation aOrdered By: Andrae Kennedy on 12-24-2024 aPTT Coag (PPP) [Time] 27.6 s 24.1-36.[address] [facility] Basic Metabolic Profile (BMP )on 12-24-2024 BUN/CRE 9.9 RATIO Low 10-20 [facility] Comment on above: Performed By: #### M 100.7900, L500.2500, L503.6005, L300.4310, L100.0100, L300.3900 ####[facility] [address] [place] [place], [address] Calcium [Mass/Vol] 8.4 mg/dL Normal 7.6-11.0 [facility] Comment on above: Performed By: #### M 100.7900, L500.2500, L503.6005, L300.4310, L100.0100, L300.3900 ####[facility] [address] [place], [address] Chloride [Moles/Vol] 106 mmol/L Normal 98-108 [facility] Comment on above: Performed By: #### M 100.7900, L500.2500, L503.6005, L300.4310, L100.0100, L300.3900 ####[facility] [address] [place], [address] CO2 [Moles/Vol] 18.1 mmol/L Low 21.0-32.0 [facility] Comment on above: Performed By: #### M 100.7900, L500.2500, L503.6005, L300.4310, L100.0100, L300.3900 ####[facility] [address] [place], [address] Creatinine [Mass/Vol] 1.67 mg/dL High 0.70-1.20 [facility] Comment on above: Performed By: #### M 100.7900, L500.2500, L503.6005, L300.4310, L100.0100, L300.3900 ####[facility] [address] [place], [address] ECRCL 41.59 ml/min Low 50-250 [facility] Comment on above: Performed By: #### M 100.7900, L500.2500, L503.6005, L300.4310, L100.0100, L300.3900 ####[facility] [address] [place], [address] GAP 15 Normal 5-15 [facility] Comment on above: Performed By: #### M 100.7900, L500.2500, L503.6005, L300.4310, L100.0100, L300.3900 ####[facility] [address] [place], [address] GFR/1.73 sq M.predicted among non-blacks MDRD (S/P/Bld) [Vol rate/Area] 41 mL/min/{1.73_m2} Low >60 [facility] Comment on above: Result Comment: mL/m in/1.73m2 CKD-EPI Creatinine Equation (2020) Performed By: #### M 100.7900, L500.2500, L503.6005, L300.4310, L100.0100, L300.3900 ####[facility] [address] [place], [address] Glucose [Mass/Vol] 125 mg/dL High 70-99 [facility] Comment on above: Performed By: #### M 100.7900, L500.2500, L503.6005, L300.4310, L100.0100, L300.3900 ####[facility] [address] [place], [address] Potassium [Moles/Vol] 4.3 mmol/L Normal 3.3-5.1 [facility] Comment on above: Performed By: #### M 100.7900, L500.2500, L503.6005, L300.4310, L100.0100, L300.3900 ####[facility] [address] [place], [address] Sodium [Moles/Vol] 139 mmol/L Normal 133-145 [facility] Comment on above: Performed By: #### M 100.7900, L500.2500, L503.6005, L300.4310, L100.0100, L300.3900 ####[facility] [address] [place], [address] Urea nitrogen [Mass/Vol] 17 mg/dL Normal 4-19 [facility] Comment on above: Performed By: #### M 100.7900, L500.2500, L503.6005, L300.4310, L100.0100, L300.3900 ####[facility] [address] [place], [address] Bedside Glucoseon 12-24-2024 FINGERSTICK GLU 107 mg/dL High 74-106 [facility] Comment on above: Result Comment: WILDA GEMENT OF PATIENT CARE PER NURSING PROTOCOL Performed By: #### L 501.080 ####[facility] [address] [place], [address] FINGERSTICK GLU 96 mg/dL Normal 74-106 [facility] Comment on above: Result Comment: WILDA GEMENT OF PATIENT CARE PER NURSING PROTOCOL Performed By: #### L 501.080 ####[facility] [address] [place], [address] FINGERSTICK GLU 152 mg/dL High 74-106 [facility] Comment on above: Result Comment: WILDA GEMENT OF PATIENT CARE PER NURSING PROTOCOL Performed By: #### L 501.080 ####[facility] [address] [place], [address] FINGERSTICK GLU 112 mg/dL High 74-106 [facility] Comment on above: Result Comment: WILDA GEMENT OF PATIENT CARE PER NURSING PROTOCOL Performed By: #### L 501.080 ####[facility] [address] [place], [address] Bilirubin, totalOrdered By: Alka Leo on 12-24-2024 Bilirubin [Mass/Vol] 0.53 mg/dL Normal 0.00-1.30 [facility] Comment on above: Performed By: #### L 500.4050 ####[facility] [address] [place], [address] CBC W/Diff, Automatedon 12-02 Absolute Lymph 1.09 X10 3/uL Normal 0.83-4.51 [facility] Comment on above: Performed By: #### M 100.7900, L500.2500, L503.6005, L300.4310, L100.0100, L300.3900 ####[facility] [address] [place], [address] Absolute Neut 6.9 X10 3/uL Normal 2.0-7.7 [facility] Comment on above: Performed By: #### M 100.7900, L500.2500, L503.6005, L300.4310, L100.0100, L300.3900 ####[facility] [address] [place], [address] IG% 0.300 Normal 0.0-0.9 [facility] Comment on above: Result Comment: IG% - Immature Granulocytes (promyelocytes, myelocytes andmetamyelocytes) > 1% indicates that a LEFT SHIFT is Present. Performed By: #### M 100.7900, L500.2500, L503.6005, L300.4310, L100.0100, L300.3900 ####[facility] [address] [place], [address] Nucleated RBC (Bld) [#/Vol] 0 10*3/uL Normal 0-5 [facility] Comment on above: Performed By: #### M 100.7900, L500.2500, L503.6005, L300.4310, L100.0100, L300.3900 ####[facility] [address] [place], [address] Basophils/100 WBC (Bld) 0.2 % Normal 0-1 [facility] Comment on above: Performed By: #### M 100.7900, L500.2500, L503.6005, L300.4310, L100.0100, L300.3900 ####[facility] [address] [place], [address] Eosinophils/100 WBC (Bld) 0.8 % Normal 0-5 [facility] Comment on above: Performed By: #### M 100.7900, L500.2500, L503.6005, L300.4310, L100.0100, L300.3900 ####[facility] [address] [place], [address] Erythrocyte distribution width (RBC) [Ratio] 14.2 % Normal 11.6-14.6 [facility] Comment on above: Performed By: #### M 100.7900, L500.2500, L503.6005, L300.4310, L100.0100, L300.3900 ####[facility] [address] [place], [address] Hematocrit (Bld) [Volume fraction] 35.7 % Low 40-54 [facility] Comment on above: Performed By: #### M 100.7900, L500.2500, L503.6005, L300.4310, L100.0100, L300.3900 ####[facility] [address] [place], [address] Hemoglobin (Bld) [Mass/Vol] 11.8 g/dL Low 13.0-16.5 [facility] Comment on above: Performed By: #### M 100.7900, L500.2500, L503.6005, L300.4310, L100.0100, L300.3900 ####[facility] [address] [place], [address] Lymphocytes/100 WBC (Bld) 12.2 % Low 19-41 [facility] Comment on above: Performed By: #### M 100.7900, L500.2500, L503.6005, L300.4310, L100.0100, L300.3900 ####[facility] [address] [place], [address] MCH (RBC) [Entitic mass] 29.6 pg Normal 27.0-32.0 [facility] Comment on above: Performed By: #### M 100.7900, L500.2500, L503.6005, L300.4310, L100.0100, L300.3900 ####[facility] [address] [place], [address] MCHC (RBC) [Mass/Vol] 33.1 g/dL Normal 32-36 [facility] Comment on above: Performed By: #### M 100.7900, L500.2500, L503.6005, L300.4310, L100.0100, L300.3900 ####[facility] [address] [place], [address] MCV (RBC) [Entitic vol] 89.5 fL Normal 80-94 [facility] Comment on above: Performed By: #### M 100.7900, L500.2500, L503.6005, L300.4310, L100.0100, L300.3900 ####[facility] [address] [place], [address] Monocytes/100 WBC (Bld) 9.1 % Normal 0-10 [facility] Comment on above: Performed By: #### M 100.7900, L500.2500, L503.6005, L300.4310, L100.0100, L300.3900 ####[facility] [address] [place], [address] Neutrophils/100 WBC (Bld) 77.4 % High 47-70 [facility] Comment on above: Performed By: #### M 100.7900, L500.2500, L503.6005, L300.4310, L100.0100, L300.3900 ####[facility] [address] [place], [address] Platelet mean volume (Bld) [Entitic vol] 12.9 fL High 6.2-12.0 [facility] Comment on above: Performed By: #### M 100.7900, L500.2500, L503.6005, L300.4310, L100.0100, L300.3900 ####[facility] [address] [place], [address] Platelets (Bld) [#/Vol] 139 10*3/uL Low 150-450 [facility] Comment on above: Performed By: #### M 100.7900, L500.2500, L503.6005, L300.4310, L100.0100, L300.3900 ####[facility] [address] [place], [address] RBC (Bld) [#/Vol] 3.99 10*6/uL Low 4.6-6.2 [facility] Comment on above: Performed By: #### M 100.7900, L500.2500, L503.6005, L300.4310, L100.0100, L300.3900 ####[facility] [address] [place], [address] RDW SD 45.5 fl High 35.1-43.9 [facility] Comment on above: Performed By: #### M 100.7900, L500.2500, L503.6005, L300.4310, L100.0100, L300.3900 ####[facility] [address] [place], [address] WBC (Bld) [#/Vol] 8.9 10*3/uL Normal 4.4-11.0 [facility] Comment on above: Performed By: #### M 100.7900, L500.2500, L503.6005, L300.4310, L100.0100, L300.3900 ####[facility] [address] [place], [address] Comprehensive Metabolic Prof ilon 12-24-2024 ALK PHOS 136 U/L High 40-129 [facility] Comment on above: Performed By: #### L 500.4050 ####[facility] [address] [place], [address] AST [Catalytic activity/Vol] 24 U/L Normal <=37 [facility] Comment on above: Performed By: #### L 500.4050 ####[facility] [address] [place], [address] BUN/CRE 8.9 RATIO Low 10-20 [facility] Comment on above: Performed By: #### L 500.4050 ####[facility] [address] [place], [address] Calcium [Mass/Vol] 8.5 mg/dL Normal 7.6-11.0 [facility] Comment on above: Performed By: #### L 500.4050 ####[facility] [address] [place], [address] Chloride [Moles/Vol] 106 mmol/L Normal 98-108 [facility] Comment on above: Performed By: #### L 500.4050 ####[facility] [address] [place], [address] CO2 [Moles/Vol] 16.6 mmol/L Low 21.0-32.0 [facility] Comment on above: Performed By: #### L [id number] ####[facility] [address] [place], [address] Creatinine [Mass/Vol] 1.62 mg/dL High 0.70-1.20 [facility] Comment on above: Performed By: #### L [id number] ####[facility] [address] [place], [address] ECRCL 42.41 ml/min Low 50-250 [facility] Comment on above: Performed By: #### L [id number] ####[facility] [address] [place], [address] GAP 16 High 5-15 [facility] Comment on above: Performed By: #### L [id number] ####[facility] [address] [place], [address] GFR/1.73 sq M.predicted among non-blacks MDRD (S/P/Bld) [Vol rate/Area] 43 mL/min/{1.73_m2} Low >60 [facility] Comment on above: Result Comment: mL/m in/1.73m2 CKD-EPI Creatinine Equation (2020) Performed By: #### L 500.4050 ####[facility] [address] [place], [address] Glucose [Mass/Vol] 127 mg/dL High 70-99 [facility] Comment on above: Performed By: #### L 500.4050 ####[facility] [address] [place], [address] Potassium [Moles/Vol] 4.0 mmol/L Normal 3.3-5.1 [facility] Comment on above: Performed By: #### L 500.4050 ####[facility] [address] [place], [address] Sodium [Moles/Vol] 138 mmol/L Normal 133-145 [facility] Comment on above: Performed By: #### L 500.4050 ####[facility] [address] [place], [address] T PROT 6.6 g/dL Normal 5.9-8.4 [facility] Comment on above: Performed By: #### L 500.4050 ####[facility] [address] [place], [address] Urea nitrogen [Mass/Vol] 14 mg/dL Normal 4-19 [facility] Comment on above: Performed By: #### L 500.4050 ####[facility] [address] [place], [address] Emergency Department Summary on 12-24-2024 Emergency Department Summary Normal [facility] H AND P Exam - Hospitaliston 12-24-2024 H&P Exam - Hospitalist Normal [facility] HH, Hemoglobin AND Hematocri ton 12-24-2024 Hematocrit (Bld) [Volume fraction] 32.2 % Low 40-54 [facility] Comment on above: Performed By: #### L 100.0600 ####[facility] [address] [place], [address] Hemoglobin (Bld) [Mass/Vol] 10.6 g/dL Low 13.0-16.5 [facility] Comment on above: Performed By: #### L 100.0600 ####[facility] [address] [place], [address] Hematocrit (Bld) [Volume fraction] 32.2 % Low 40-54 [facility] Comment on above: Performed By: #### L 100.0600 ####[facility] [address] [place], [address] Hemoglobin (Bld) [Mass/Vol] 10.5 g/dL Low 13.0-16.5 [facility] Comment on above: Performed By: #### L 100.0600 ####[facility] [address] [place], [address] Hematocrit (Bld) [Volume fraction] 38.7 % Low 40-54 [facility] Comment on above: Performed By: #### L 100.0600 ####[facility] [address] [place], [address] Hemoglobin (Bld) [Mass/Vol] 12.3 g/dL Low 13.0-16.5 [facility] Comment on above: Performed By: #### L 100.0600 ####[facility] [address] [place], [address] Hematocrit (Bld) [Volume fraction] 34.5 % Low 40-54 [facility] Comment on above: Performed By: #### L 100.0600 ####[facility] [address] [place], [address] Hemoglobin (Bld) [Mass/Vol] 11.2 g/dL Low 13.0-16.5 [facility] Comment on above: Performed By: #### L 100.0600 ####[facility] [address] [place], [address] Lactic Acidon 12-24-2024 Lactate [Moles/Vol] 1.7 mmol/L Normal 0.0-2.0 [facility] Comment on above: Performed By: #### L 503.6005 ####[facility] [address] [place], [address] Lactate [Moles/Vol] 2.1 mmol/L Invalid Interpretation Code 0.0-2.0 [facility] Comment on above: Order Comment: Y Result Comment: Crit ical Result(s) Called at: 0049 by:??NIKA RAMESH. Results read back by same. Performed By: #### M 100.7900, L500.2500, L503.6005, L300.4310, L100.0100, L300.3900 ####[facility] [address] [place], [address] Magnesiumon 12-24-2024 Magnesium [Mass/Vol] 1.7 mg/dL Normal 1.5-2.2 [facility] Comment on above: Order Comment: Comme nts: may add to ED labs Performed By: #### L 501.5200 ####[facility] [address] [place], [address] No Panel InformationOrdered By: Alka Leo on 12-24-2024 24 U/L <38 [facility] Partial Thromboplast Timeon 12-24-2024 aPTT Coag (Bld) [Time] 27.6 s Normal 24.1-36.[address] [facility] Comment on above: Performed By: #### M 100.7900, L500.2500, L503.6005, L300.4310, L100.0100, L300.3900 ####[facility] [address] [place], [address] Prothrombin Time w/INRon INR Coag (PPP) [Relative time] 1.0 {INR} Normal [facility] Comment on above: Performed By: #### M 100.7900, L500.2500, L503.6005, L300.4310, L100.0100, L300.3900 ####[facility] [address] [place], [address] Prothrombin timeOrdered By: Andrae Kennedy on 12-24-2024 PT Coag (PPP) [Time] 13.5 s Normal 11.7-14.9 [facility] Comment on above: Performed By: #### M 100.7900, L500.2500, L503.6005, L300.4310, L100.0100, L300.3900 ####[facility] [address] [place], [place], [id number] Serum globulin measurementOr dered By: Alka Leo on 12-24-2024 Globulin (S) [Mass/Vol] 3.1 g/dL Normal 2.2-4.2 [facility] Comment on above: Performed By: #### L 500.4050 ####[facility] [address] [place], [address] Serum or plasma alanine guerrero otransferase (ALT) measurementOrdered By: on 12-24-2024 ALT [Catalytic activity/Vol] 26 U/L Normal <=46 [facility] Comment on above: Performed By: #### L 500.4050 ####[facility] [address] [place], [address] Serum or plasma albumin francine urement (mass/volume)Ordered By: Alka Leo on 12-24-2024 Albumin [Mass/Vol] 3.5 g/dL Normal 3.4-4.8 [facility] Comment on above: Performed By: #### L 500.4050 ####[facility] [address] [place], [address] Serum or plasma albumin/glob ulin mass ratioOrdered By: on 12-24-2024 Albumin/Globulin [Mass ratio] 1.1 {ratio} Normal 0.9-2.4 [facility] Comment on above: Performed By: #### L 500.4050 ####[facility] [address] [place], [address] Serum or plasma alkaline bell sphatase measurementOrdered By: Alka Ahmet on 12-24-2024 ALP [Catalytic activity/Vol] 136 U/L High 40-129 [facility] Stool Occult Blood iFOBon STOB Normal [facility] Comment on above: Performed By: #### M 100.7900, L500.2500, L503.6005, L300.4310, L100.0100, L300.3900 ####[facility] [address] [place], [address] Stool gastrointestinal hemog lobin detection by immunologic methodOrdered By: Andrae Kennedy on 12-24-2024 Lower GI hemoglobin IA Ql (Stl) Positive Abnormal [facility] Total proteinOrdered By: Aut umn White on 12-24-2024 Protein [Mass/Vol] 6.6 g/dL 5.9-8.4 [facility] Absolute lymphocyte countOrd ered By: Boyd Rock on 12-21-2024 Lymphocytes Auto (Unsp spec) [#/Vol] 0.76 10*3/uL Low 0.83-4.51 [facility] Anion gap in Serum or Plasma Ordered By: Boyd Rock on 12-21-2024 Anion gap [Moles/Vol] 17 mmol/L High 5-15 [facility] Automated lymphocyte count a s percentage of total leukocytesOrdered By: Boyd Rock on 12-21-2024 Lymphocytes/100 WBC Auto (Unsp spec) 8.7 % Low 19-41 [facility] BUN/creatinine ratioOrdered By: Boyd Rock on 12-21-2024 Urea nitrogen/Creatinine [Mass ratio] 20.6 mg/mg High 10-20 [facility] Basophil percentageOrdered B y: Boyd Rock on 12-21-2024 Basophils/100 WBC (Bld) 0.2 % 0-1 [facility] Carbon dioxide, total [Moles /volume] in Central venous bloodOrdered By: Boyd Rock on 12-21-2024 CO2 [Moles/Vol] 16.7 mmol/L Low 21.0-32.0 [facility] Chloride assayOrdered By: Susanna Rock on 12-21-2024 Chloride [Moles/Vol] 101 mmol/L 98-108 [facility] Eosinophil percentageOrdered By: Boyd Rock on 12-21-2024 Eosinophils/100 WBC (Bld) 0.2 % 0-5 [facility] Erythrocyte distribution wid th ratioOrdered By: Boyd Rock on 12-21-2024 Erythrocyte distribution width (RBC) [Ratio] 13.9 % 11.6-14.6 [facility] Erythrocyte distribution wid th standard deviationOrdered By: Boyd Rock on 12-21-2024 Erythrocyte distribution width (RBC) [Ratio] 44.6 fl High 35.1-43.9 [facility] Glomerular filtration rate ( GFR) estimation/1.73 sq m using serum, plasma, or whole bOrdered By: Boyd Rock on 12-21-2024 GFR/1.73 sq M.predicted among non-blacks MDRD (S/P/Bld) [Vol rate/Area] 26 mL/min/{1.73_m2} Low >60 [facility] Hematocrit Auto (Bld) [Volum e fraction]Ordered By: [facility] on 12-21-2024 Hematocrit (Bld) [Volume fraction] 37.3 % Low 40-54 [facility] Hemoglobin measurementOrdere d By: andrés Rock on 12-21-2024 Hemoglobin (Bld) [Mass/Vol] 12.2 g/dL Low 13.0-16.5 [facility] Immature granulocytes/100 WB C Auto (Bld)Ordered By: Boyd Rock on 12-21-2024 Immature granulocytes/100 WBC (Bld) 0.600 % 0.0-0.9 [facility] MCV (mean corpuscular volume ) determinationOrdered By: oByd Rock on 12-21-2024 MCV (RBC) [Entitic vol] 87.8 fL 80-94 [facility] Mean corpuscular hemoglobin (MCH) determinationOrdered By: [facility] on 12-21-2024 MCH (RBC) [Entitic mass] 28.7 pg 27.0-32.0 [facility] Monocyte percentageOrdered B y: andrés Rock on 12-21-2024 Monocytes/100 WBC (Bld) 10.6 % High 0-10 [facility] Neutrophil percentageOrdered By: [facility] Garryveronica on 12-21-2024 Neutrophils/100 WBC (Bld) 79.7 % High 47-70 [facility] Platelet countOrdered By: [facility] on 12-21-2024 Platelets (Bld) [#/Vol] 145 10*3/uL Low 150-450 [facility] Potassium measurement (mass/ volume)Ordered By: Boyd Rock on 12-21-2024 Potassium (Unsp spec) [Mass/Vol] 4.2 mmol/L 3.3-5.1 [facility] RBC Auto (Bld) [#/Vol]Ordere d By: Boyd Rock on 12-21-2024 RBC (Bld) [#/Vol] 4.25 10*6/uL Low 4.6-6.2 [facility] Serum creatinine measurement (mass/volume)Ordered By: Boyd Rock on 12-21-2024 Creatinine [Mass/Vol] 2.49 mg/dL High 0.70-1.20 [facility] Serum glucose measurement (m ass/volume)Ordered By: Boyd Rock on 12-21-2024 Glucose [Mass/Vol] 134 mg/dL High 70-99 [facility] Serum or plasma calcium francine urement (mass/volume)Ordered By: Boyd Rock on 12-21-2024 Calcium [Mass/Vol] 9.0 mg/dL 7.6-11.0 [facility] Serum or plasma urea nitroge n measurement (mass/volume)Ordered By: Boyd Rock on 12-21-2024 Urea nitrogen [Mass/Vol] 51 mg/dL High 4-19 [facility] Sodium levelOrdered By: Lupe Rock on 12-21-2024 Sodium [Moles/Vol] 134 mmol/L 133-145 [facility] T4 freeOrdered By: Boyd Rock on 12-21-2024 Free T4 [Mass/Vol] 1.20 ng/dL 0.76-1.46 [facility] TSH DL <= 0.005 mIU/L QnOrde red By: Boyd Rock on 12-21-2024 TSH Qn 5.250 uIU/mL High 0.300-4.20 0 [facility] Vitamin B12 ser/plasOrdered By: Boyd Rock on 12-21-2024 Cobalamin (Vitamin B12) [Mass/Vol] 2000 pg/mL High 180-914 [facility] White blood cell (WBC) count Ordered By: Boyd Rock on 12-21-2024 WBC (Bld) [#/Vol] 8.7 10*3/uL 4.4-11.0 [facility] 12 Lead EKGon 12-20-2024 12 Lead EKG Normal [facility] Absolute lymphocyte countOrd ered By: Jody Servin on 12-20-2024 Lymphocytes Auto (Unsp spec) [#/Vol] 1.39 10*3/uL 0.83-4.51 [facility] Absolute lymphocyte countOrd ered By: Boyd oRck on 12-20-2024 Lymphocytes Auto (Unsp spec) [#/Vol] 1.09 10*3/uL 0.83-4.51 [facility] Activated partial thrombopla stin time (aPTT) in platelet poor plasma by coagulation aOrdered By: Jody Servin on 12-20-2024 aPTT Coag (PPP) [Time] 27.6 s 24.1-36.[address] [facility] Anion gap in Serum or Plasma Ordered By: Jody Servin on 12-20-2024 Anion gap [Moles/Vol] 19 mmol/L [facility] 09-14 [facility] Anion gap in Serum or Plasma Ordered By: Boyd Rock on 12-20-2024 Anion gap [Moles/Vol] 18 mmol/L [facility] 09-14 [facility] Automated lymphocyte count a s percentage of total leukocytesOrdered By: Jody Servin on 12-20-2024 Lymphocytes/100 WBC Auto (Unsp spec) 11.8 % Low [facility] Automated lymphocyte count a s percentage of total leukocytesOrdered By: Boyd Rock on 12-20-2024 Lymphocytes/100 WBC Auto (Unsp spec) 10.5 % Low [facility] BUN/creatinine ratioOrdered By: Jody Servin on 12-20-2024 Urea nitrogen/Creatinine [Mass ratio] 19.5 mg/mg 02-19 [facility] BUN/creatinine ratioOrdered By: Boyd Rock on 12-20-2024 Urea nitrogen/Creatinine [Mass ratio] 20.4 mg/mg High 02-19 [facility] Basophil percentageOrdered B y: Jody Servin on 12-20-2024 Basophils/100 WBC (Bld) 0.2 % 0-1 [facility] Basophil percentageOrdered B y: Boyd Rock on 12-20-2024 Basophils/100 WBC (Bld) 0.3 % 0-1 [facility] Bilirubin, totalOrdered By: Jody Servin on 12-20-2024 Bilirubin [Mass/Vol] 1.15 mg/dL 0.00-1.30 [facility] Bilirubin, totalOrdered By: Boyd Rock on 12-20-2024 Bilirubin [Mass/Vol] 1.08 mg/dL 0.00-1.30 [facility] CBC W/Diff, Automatedon 12-02 Absolute Lymph 1.39 X10 3/uL Normal 0.83-4.51 [facility] Comment on above: Performed By: #### L 300.3900, L300.4310, L100.0100 ####[facility] [address] [place], [address] Absolute Neut 9.0 X10 3/uL High 2.0-7.7 [facility] Comment on above: Performed By: #### L 300.3900, L300.4310, L100.0100 ####[facility] [address] [place], [address] Basophils/100 WBC (Bld) 0.2 % Normal 0-1 [facility] Comment on above: Performed By: #### L 300.3900, L300.4310, L100.0100 ####[facility] [address] [place], [address] Eosinophils/100 WBC (Bld) 0.1 % Normal 0-5 [facility] Comment on above: Performed By: #### L 300.3900, L300.4310, L100.0100 ####[facility] [address] [place], [address] Erythrocyte distribution width (RBC) [Ratio] 13.8 % Normal 11.6-14.6 [facility] Comment on above: Performed By: #### L 300.3900, L300.4310, L100.0100 ####[facility] [address] [place], [address] Hematocrit (Bld) [Volume fraction] 41.8 % Normal 40-54 [facility] Comment on above: Performed By: #### L 300.3900, L300.4310, L100.0100 ####[facility] [address] [place], [address] Hemoglobin (Bld) [Mass/Vol] 13.8 g/dL Normal 13.0-16.5 [facility] Comment on above: Performed By: #### L 300.3900, L300.4310, L100.0100 ####[facility] [address] [place], [address] IG% 0.500 Normal 0.0-0.9 [facility] Comment on above: Result Comment: IG% - Immature Granulocytes (promyelocytes, myelocytes andmetamyelocytes) > 1% indicates that a LEFT SHIFT is Present. Performed By: #### L 300.3900, L300.4310, L100.0100 ####[facility] [address] [place], [address] Lymphocytes/100 WBC (Bld) 11.8 % Low 19-41 [facility] Comment on above: Performed By: #### L 300.3900, L300.4310, L100.0100 ####[facility] [address] [place], [address] MCH (RBC) [Entitic mass] 28.6 pg Normal 27.0-32.0 [facility] Comment on above: Performed By: #### L 300.3900, L300.4310, L100.0100 ####[facility] [address] [place], [address] MCHC (RBC) [Mass/Vol] 33.0 g/dL Normal 32-36 [facility] Comment on above: Performed By: #### L 300.3900, L300.4310, L100.0100 ####[facility] [address] [place], [address] MCV (RBC) [Entitic vol] 86.7 fL Normal 80-94 [facility] Comment on above: Performed By: #### L 300.3900, L300.4310, L100.0100 ####[facility] [address] [place], [address] Monocytes/100 WBC (Bld) 11.5 % High 0-10 [facility] Comment on above: Performed By: #### L 300.3900, L300.4310, L100.0100 ####[facility] [address] [place], [address] Neutrophils/100 WBC (Bld) 75.9 % High 47-70 [facility] Comment on above: Performed By: #### L 300.3900, L300.4310, L100.0100 ####[facility] [address] [place], [address] Nucleated RBC (Bld) [#/Vol] 0 10*3/uL Normal 0-5 [facility] Comment on above: Performed By: #### L 300.3900, L300.4310, L100.0100 ####[facility] [address] [place], [address] Platelet mean volume (Bld) [Entitic vol] 13.3 fL High 6.2-12.0 [facility] Comment on above: Performed By: #### L 300.3900, L300.4310, L100.0100 ####[facility] [address] [place], [address] Platelets (Bld) [#/Vol] 231 10*3/uL Normal 150-450 [facility] Comment on above: Performed By: #### L 300.3900, L300.4310, L100.0100 ####[facility] [address] [place], [address] RBC (Bld) [#/Vol] 4.82 10*6/uL Normal 4.6-6.2 [facility] Comment on above: Performed By: #### L 300.3900, L300.4310, L100.0100 ####[facility] [address] [place], [address] RDW SD 43.2 fl Normal 35.1-43.9 [facility] Comment on above: Performed By: #### L 300.3900, L300.4310, L100.0100 ####[facility] [address] [place], [address] WBC (Bld) [#/Vol] 11.8 10*3/uL High 4.4-11.0 [facility] Comment on above: Performed By: #### L 300.3900, L300.4310, L100.0100 ####[facility] [address] [place], [address] CTA Abd/Pelvis W/WO Contrast on 12-20-2024 CTA Abd/Pelvis W/WO Contrast Normal [facility] Carbon dioxide, total [Moles /volume] in Central venous bloodOrdered By: Joyd Servin on 12-20-2024 CO2 [Moles/Vol] 18.5 mmol/L Low 21.0-32.0 [facility] Carbon dioxide, total [Moles /volume] in Central venous bloodOrdered By: Boyd Rock on 12-20-2024 CO2 [Moles/Vol] 18.6 mmol/L Low 21.0-32.0 [facility] Chest PA and Lateralon 12-20 Chest PA and Lateral Normal [facility] Chloride assayOrdered By: Er alonzo Servin on 12-20-2024 Chloride [Moles/Vol] 93 mmol/L Low 98-108 [facility] Chloride assayOrdered By: Ef andrés Rock on 12-20-2024 Chloride [Moles/Vol] 94 mmol/L Low 98-108 [facility] Comprehensive Metabolic Prof ilon 12-20-2024 Albumin [Mass/Vol] 4.0 g/dL Normal 3.4-4.8 [facility] Comment on above: Performed By: #### L 501.5200, L500.4050, L501.2450 ####[facility] [address] [place], [address] Albumin/Globulin [Mass ratio] 1.0 {ratio} Normal 0.9-2.4 [facility] Comment on above: Performed By: #### L 501.5200, L500.4050, L501.2450 ####[facility] [address] [place], [address] ALK PHOS 180 U/L High 40-129 [facility] Comment on above: Performed By: #### L 501.5200, L500.4050, L501.2450 ####[facility] [address] [place], [address] ALT [Catalytic activity/Vol] 32 U/L Normal <=46 [facility] Comment on above: Performed By: #### L 501.5200, L500.4050, L501.2450 ####[facility] [address] [place], [address] AST [Catalytic activity/Vol] 28 U/L Normal <=37 [facility] Comment on above: Performed By: #### L 501.5200, L500.4050, L501.2450 ####[facility] [address] [place], [address] Bilirubin [Mass/Vol] 1.15 mg/dL Normal 0.00-1.30 [facility] Comment on above: Performed By: #### L 501.5200, L500.4050, L501.2450 ####[facility] [address] [place], [address] BUN/CRE 19.5 RATIO Normal 10-20 [facility] Comment on above: Performed By: #### L 501.5200, L500.4050, L501.2450 ####[facility] [address] [place], [address] Calcium [Mass/Vol] 9.5 mg/dL Normal 7.6-11.0 [facility] Comment on above: Performed By: #### L 501.5200, L500.4050, L501.2450 ####[facility] [address] [place], [address] Chloride [Moles/Vol] 93 mmol/L Low 98-108 [facility] Comment on above: Performed By: #### L 501.5200, L500.4050, L501.2450 ####[facility] [address] [place], [address] CO2 [Moles/Vol] 18.5 mmol/L Low 21.0-32.0 [facility] Comment on above: Performed By: #### L 501.5200, L500.4050, L501.2450 ####[facility] [address] [place], [address] Creatinine [Mass/Vol] 3.24 mg/dL High 0.70-1.20 [facility] Comment on above: Performed By: #### L 501.5200, L500.4050, L501.2450 ####[facility] [address] [place], [address] ECRCL 21.32 ml/min Low 50-250 [facility] Comment on above: Performed By: #### L 501.5200, L500.4050, L501.2450 ####[facility] [address] [place], [address] GAP 19 High 5-15 [facility] Comment on above: Performed By: #### L 501.5200, L500.4050, L501.2450 ####[facility] [address] [place], [address] GFR/1.73 sq M.predicted among non-blacks MDRD (S/P/Bld) [Vol rate/Area] 19 mL/min/{1.73_m2} Low >60 [facility] Comment on above: Result Comment: mL/m in/1.73m2 CKD-EPI Creatinine Equation (2020) Performed By: #### L 501.5200, L500.4050, L501.2450 ####[facility] [address] [place], [address] Globulin (S) [Mass/Vol] 4.0 g/dL Normal 2.2-4.2 [facility] Comment on above: Performed By: #### L 501.5200, L500.4050, L501.2450 ####[facility] [address] [place], [address] Glucose [Mass/Vol] 173 mg/dL High 70-99 [facility] Comment on above: Performed By: #### L 501.5200, L500.4050, L501.2450 ####[facility] [address] [place], [address] Potassium [Moles/Vol] 4.2 mmol/L Normal 3.3-5.1 [facility] Comment on above: Performed By: #### L 501.5200, L500.4050, L501.2450 ####[facility] [address] [place], [address] Sodium [Moles/Vol] 131 mmol/L Low 133-145 [facility] Comment on above: Performed By: #### L 501.5200, L500.4050, L501.2450 ####[facility] [address] [place], [address] T PROT 8.0 g/dL Normal 5.9-8.4 [facility] Comment on above: Performed By: #### L 501.5200, L500.4050, L501.2450 ####[facility] [address] [place], [address] Urea nitrogen [Mass/Vol] 63 mg/dL High 4-19 [facility] Comment on above: Performed By: #### L 501.5200, L500.4050, L501.2450 ####[facility] [address] [place], [address] Emergency Department Summary on 12-20-2024 Emergency Department Summary Normal [facility] Eosinophil percentageOrdered By: Jody Servin on 12-20-2024 Eosinophils/100 WBC (Bld) 0.1 % 0-5 [facility] Eosinophil percentageOrdered By: Boyd Rock on 12-20-2024 Eosinophils/100 WBC (Bld) 0.2 % 0-5 [facility] Erythrocyte distribution wid th ratioOrdered By: Jody Servin on 12-20-2024 Erythrocyte distribution width (RBC) [Ratio] 13.8 % 11.6-14.6 [facility] Erythrocyte distribution wid th ratioOrdered By: Efewabbeybe Garryghe on 12-20-2024 Erythrocyte distribution width (RBC) [Ratio] 13.7 % 11.6-14.6 [facility] Erythrocyte distribution wid th standard deviationOrdered By: Jody Servin on 12-20-2024 Erythrocyte distribution width (RBC) [Ratio] 43.2 fl 35.1-43.9 [facility] Erythrocyte distribution wid th standard deviationOrdered By: Boyd Videse on 12-20-2024 Erythrocyte distribution width (RBC) [Ratio] 43.4 fl 35.1-43.9 [facility] Glomerular filtration rate ( GFR) estimation/1.73 sq m using serum, plasma, or whole bOrdered By: Jody Servin on 12-20-2024 GFR/1.73 sq M.predicted among non-blacks MDRD (S/P/Bld) [Vol rate/Area] 19 mL/min/{1.73_m2} Low >60 [facility] Glomerular filtration rate ( GFR) estimation/1.73 sq m using serum, plasma, or whole bOrdered By: Boyd Rock on 12-20-2024 GFR/1.73 sq M.predicted among non-blacks MDRD (S/P/Bld) [Vol rate/Area] 18 mL/min/{1.73_m2} Low >60 [facility] Hematocrit Auto (Bld) [Volum e fraction]Ordered By: Jody Servin on 12-20-2024 Hematocrit (Bld) [Volume fraction] 41.8 % 40-54 [facility] Hematocrit Auto (Bld) [Volum e fraction]Ordered By: Boyd Rock on 12-20-2024 Hematocrit (Bld) [Volume fraction] 41.1 % 40-54 [facility] Hemoglobin measurementOrdere d By: Jody Servin on 12-20-2024 Hemoglobin (Bld) [Mass/Vol] 13.8 g/dL 13.0-16.5 [facility] Hemoglobin measurementOrdere d By: Boyd Rock on 12-20-2024 Hemoglobin (Bld) [Mass/Vol] 13.6 g/dL 13.0-16.5 [facility] Immature granulocytes/100 WB C Auto (Bld)Ordered By: Jody Servin on 12-20-2024 Immature granulocytes/100 WBC (Bld) 0.500 % 0.0-0.9 [facility] Immature granulocytes/100 WB C Auto (Bld)Ordered By: Boyd Rock on 12-20-2024 Immature granulocytes/100 WBC (Bld) 0.800 % 0.0-0.9 [facility] Lipaseon 12-20-2024 Lipase [Catalytic activity/Vol] 120 U/L High 13-75 [facility] Comment on above: Result Comment: Noah fletcher note:LIPASE revised reference range effective 22.New Lipase methodology. Expected to produce lower valuesthan the previous assay method.NEW Reference Range: 13 - 75 U/L Performed By: #### L 501.5200, L500.4050, L501.2450 ####[facility] [address] [place], [address] MCV (mean corpuscular volume ) determinationOrdered By: Jody Servin on 12-20-2024 MCV (RBC) [Entitic vol] 86.7 fL 80-94 [facility] MCV (mean corpuscular volume ) determinationOrdered By: Boyd Rock on 12-20-2024 MCV (RBC) [Entitic vol] 87.6 fL 80-94 [facility] Magnesiumon 12-20-2024 Magnesium [Mass/Vol] 2.4 mg/dL High 1.5-2.2 [facility] Comment on above: Performed By: #### L 501.5200, L500.4050, L501.2450 ####[facility] [address] [place], [place], [address] Magnesium measurement (mass/ volume)Ordered By: Jody Servin on 12-20-2024 Magnesium (Unsp spec) [Mass/Vol] 2.4 mg/dL High 1.5-2.2 [facility] Mean corpuscular hemoglobin (MCH) determinationOrdered By: Jody Servin on 12-20-2024 MCH (RBC) [Entitic mass] 28.6 pg 27.0-32.0 [facility] Mean corpuscular hemoglobin (MCH) determinationOrdered By: Boyd Rock on 12-20-2024 MCH (RBC) [Entitic mass] 29.0 pg 27.0-32.0 [facility] Monocyte percentageOrdered B y: Jody Servin on 12-20-2024 Monocytes/100 WBC (Bld) 11.5 % High 0-10 [facility] Monocyte percentageOrdered B y: Boyd Rock on 12-20-2024 Monocytes/100 WBC (Bld) 12.1 % High 0-10 [facility] Neutrophil percentageOrdered By: Jody Servin on 12-20-2024 Neutrophils/100 WBC (Bld) 75.9 % High 47-70 [facility] Neutrophil percentageOrdered By: Boyd Rock on 12-20-2024 Neutrophils/100 WBC (Bld) 76.1 % High 47-70 [facility] No Panel InformationOrdered By: Jody Servin on 12-20-2024 28 U/L <38 [facility] No Panel InformationOrdered By: Boyd Rock on 12-20-2024 29 U/L <38 [facility] Partial Thromboplast Timeon 12-20-2024 aPTT Coag (Bld) [Time] 27.6 s Normal 24.1-36.[address] [facility] Comment on above: Performed By: #### L 300.3900, L300.4310, L100.0100 ####[facility] [address] [place], [address] Platelet countOrdered By: Charlie Servin on 12-20-2024 Platelets (Bld) [#/Vol] 231 10*3/uL 150-450 [facility] Platelet countOrdered By: Susanna garrytesha Rock on 12-20-2024 Platelets (Bld) [#/Vol] 208 10*3/uL 150-450 [facility] Potassium measurement (mass/ volume)Ordered By: Jody Servin on 12-20-2024 Potassium (Unsp spec) [Mass/Vol] 4.2 mmol/L 3.3-5.1 [facility] Potassium measurement (mass/ volume)Ordered By: Boyd Rock on 12-20-2024 Potassium (Unsp spec) [Mass/Vol] 4.0 mmol/L 3.3-5.1 [facility] Prothrombin Time w/INRon INR Coag (PPP) [Relative time] 1.1 {INR} Normal [facility] Comment on above: Performed By: #### L 300.3900, L300.4310, L100.0100 ####[facility] [address] [place], [address] PT Coag (PPP) [Time] 14.1 s Normal 11.7-14.9 [facility] Comment on above: Performed By: #### L 300.3900, L300.4310, L100.0100 ####[facility] [address] [place], [address] Prothrombin timeOrdered By: Jody Servin on 12-20-2024 PT Coag (PPP) [Time] 14.1 s 11.7-14.9 [facility] RBC Auto (Bld) [#/Vol]Ordere d By: Jody Servin on 12-20-2024 RBC (Bld) [#/Vol] 4.82 10*6/uL 4.6-6.2 [facility] RBC Auto (Bld) [#/Vol]Ordere d By: Boyd Rock on 12-20-2024 RBC (Bld) [#/Vol] 4.69 10*6/uL 4.6-6.2 [facility] Serum creatinine measurement (mass/volume)Ordered By: Jody Servin on 12-20-2024 Creatinine [Mass/Vol] 3.24 mg/dL High 0.70-1.20 [facility] Serum creatinine measurement (mass/volume)Ordered By: Boyd Rock on 12-20-2024 Creatinine [Mass/Vol] 3.35 mg/dL High 0.70-1.20 [facility] Serum globulin measurementOr dered By: Jody Servin on 12-20-2024 Globulin (S) [Mass/Vol] 4.0 g/dL 2.2-4.2 [facility] Serum globulin measurementOr dered By: Boyd Rock on 12-20-2024 Globulin (S) [Mass/Vol] 3.7 g/dL 2.2-4.2 [facility] Serum glucose measurement (m ass/volume)Ordered By: Jody Servin on 12-20-2024 Glucose [Mass/Vol] 173 mg/dL High 70-99 [facility] Serum glucose measurement (m ass/volume)Ordered By: Boyd Rock on 12-20-2024 Glucose [Mass/Vol] 205 mg/dL High 70-99 [facility] Serum or plasma alanine guerrero otransferase (ALT) measurementOrdered By: Jody Servin on 12-20-2024 ALT [Catalytic activity/Vol] 32 U/L <47 [facility] Serum or plasma alanine guerrero otransferase (ALT) measurementOrdered By: Boyd Rock on 12-20-2024 ALT [Catalytic activity/Vol] 31 U/L <47 [facility] Serum or plasma albumin francine urement (mass/volume)Ordered By: Jody Servin on 12-20-2024 Albumin [Mass/Vol] 4.0 g/dL 3.4-4.8 [facility] Serum or plasma albumin francine urement (mass/volume)Ordered By: Boyd Rock on 12-20-2024 Albumin [Mass/Vol] 4.0 g/dL 3.4-4.8 [facility] Serum or plasma albumin/glob ulin mass ratioOrdered By: Jody Servin on 12-20-2024 Albumin/Globulin [Mass ratio] 1.0 {ratio} 0.9-2.4 [facility] Serum or plasma albumin/glob ulin mass ratioOrdered By: Boyd Rock on 12-20-2024 Albumin/Globulin [Mass ratio] 1.1 {ratio} 0.9-2.4 [facility] Serum or plasma alkaline bell sphatase measurementOrdered By: Jody Servin on 12-20-2024 ALP [Catalytic activity/Vol] 180 U/L High 40-129 [facility] Serum or plasma alkaline bell sphatase measurementOrdered By: Boyd Rock on 12-20-2024 ALP [Catalytic activity/Vol] 167 U/L High 40-129 [facility] Serum or plasma calcium francine urement (mass/volume)Ordered By: Jody Servin on 12-20-2024 Calcium [Mass/Vol] 9.5 mg/dL 7.6-11.0 [facility] Serum or plasma calcium francine urement (mass/volume)Ordered By: Boyd Rock on 12-20-2024 Calcium [Mass/Vol] 9.2 mg/dL 7.6-11.0 [facility] Serum or plasma urea nitroge n measurement (mass/volume)Ordered By: Jody Servin on 12-20-2024 Urea nitrogen [Mass/Vol] 63 mg/dL High - [facility] Serum or plasma urea nitroge n measurement (mass/volume)Ordered By: Boyd Rock on 12-20-2024 Urea nitrogen [Mass/Vol] 69 mg/dL High - [facility] Sodium levelOrdered By: Shaan Servin on 12-20-2024 Sodium [Moles/Vol] 131 mmol/L Low 133-145 [facility] Sodium levelOrdered By: Lupe gallowayluis m Shweta on 12-20-2024 Sodium [Moles/Vol] 131 mmol/L Low 133-145 [facility] Stool Occult Blood iFOBon STOB Positive Normal [facility] Comment on above: Performed By: #### M 100.7900 ####[facility] [address] [place], [address] Stool gastrointestinal hemog lobin detection by immunologic methodOrdered By: Jody Servin on 12-20-2024 Lower GI hemoglobin IA Ql (Stl) Positive Abnormal [facility] Total proteinOrdered By: Gunjan Servin on 12-20-2024 Protein [Mass/Vol] 8.0 g/dL 5.9-8.4 [facility] Total proteinOrdered By: Anastacio lillianbrittni Rock on 12-20-2024 Protein [Mass/Vol] 7.7 g/dL 5.9-8.4 [facility] Type AND Screenon 12-20-2024 ABO and Rh group Nom (Bld) Blood group O Rh(D) positive Normal [facility] Comment on above: Order Comment: Has p t arrived? YHGI Performed By: #### B TS ####[facility] [address] [place], [address] White blood cell (WBC) count Ordered By: Jody Servin on 12-20-2024 WBC (Bld) [#/Vol] 11.8 10*3/uL High 4.4-11.0 [facility] White blood cell (WBC) count Ordered By: Boyd Rock on 12-20-2024 WBC (Bld) [#/Vol] 10.3 10*3/uL 4.4-11.0 [facility] Clostridium difficile detect ion by polymerase chain reactionOrdered By: Boyd Rock on 12-18-2024 C. difficile DNA REAGAN+probe Ql (Unsp spec) [facility] Bedside Glucoseon 12-17-2024 FINGERSTICK GLU 253 mg/dL High [address] [place] [address] Comment on above: Result Comment: WILDA GEMENT OF PATIENT CARE PER NURSING PROTOCOL Performed By: #### L 501.080 ####[facility] [address] [place], [place], [address] FINGERSTICK GLU 178 mg/dL High [address] Comment on above: Result Comment: WILDA GEMENT OF PATIENT CARE PER NURSING PROTOCOL Performed By: #### L 501.080 ####[facility] [address] [place], [place], [address] [facility] deOrdered By: Marycarmen Marlow on 12-17-2024 Glucose [Mass/Vol] 253 mg/dL High [address] [facility] Absolute lymphocyte countOrd ered By: Ramonita Herron on 12-16-2024 Lymphocytes Auto (Unsp spec) [#/Vol] 0.93 10*3/uL 0.83-4.51 [facility] Anion gap in Serum or Plasma Ordered By: Ramonita Herron on 12-16-2024 Anion gap [Moles/Vol] 18 mmol/L High 5-15 [facility] Automated lymphocyte count a s percentage of total leukocytesOrdered By: Ramonita Herron on 12-16-2024 Lymphocytes/100 WBC Auto (Unsp spec) 10.7 % Low 19-41 [facility] BUN/creatinine ratioOrdered By: Ramonita Herron on 12-16-2024 Urea nitrogen/Creatinine [Mass ratio] 21.8 mg/mg High 10-20 [facility] Basic Metabolic Profile (BMP )on 12-16-2024 BUN/CRE 21.8 RATIO High - [facility] Comment on above: Performed By: #### L 500.2500, L100.0100 ####[facility] [address] [place], [address] Calcium [Mass/Vol] 9.3 mg/dL Normal 7.6-11.0 [facility] Comment on above: Performed By: #### L 500.2500, L100.0100 ####[facility] [address] [place], [address] Chloride [Moles/Vol] 93 mmol/L Low 98-108 [facility] Comment on above: Performed By: #### L 500.2500, L100.0100 ####[facility] [address] [place], [address] CO2 [Moles/Vol] 19.2 mmol/L Low 21.0-32.0 [facility] Comment on above: Performed By: #### L 500.2500, L100.0100 ####[facility] [address] [place], [address] Creatinine [Mass/Vol] 2.65 mg/dL High 0.70-1.20 [facility] Comment on above: Performed By: #### L 500.2500, L100.0100 ####[facility] [address] [place], [address] ECRCL 25.90 ml/min Low 50-250 [facility] Comment on above: Performed By: #### L 500.2500, L100.0100 ####[facility] [address] [place], [address] GAP 18 High 5-15 [facility] Comment on above: Performed By: #### L 500.2500, L100.0100 ####[facility] [address] [place], [address] GFR/1.73 sq M.predicted among non-blacks MDRD (S/P/Bld) [Vol rate/Area] 24 mL/min/{1.73_m2} Low >60 [facility] Comment on above: Result Comment: mL/m in/1.73m2 CKD-EPI Creatinine Equation (2020) Performed By: #### L 500.2500, L100.0100 ####[facility] [address] [place], [address] Glucose [Mass/Vol] 182 mg/dL High 70-99 [facility] Comment on above: Performed By: #### L 500.2500, L100.0100 ####[facility] [address] [place], [address] Potassium [Moles/Vol] 3.8 mmol/L Normal 3.3-5.1 [facility] Comment on above: Performed By: #### L 500.2500, L100.0100 ####[facility] [address] [place], [address] Sodium [Moles/Vol] 131 mmol/L Low 133-145 [facility] Comment on above: Performed By: #### L 500.2500, L100.0100 ####[facility] [address] [place], [address] Urea nitrogen [Mass/Vol] 58 mg/dL High 4-19 [facility] Comment on above: Performed By: #### L 500.2500, L100.0100 ####[facility] [address] [place], [address] Basophil percentageOrdered B y: Ramonita Herron on 12-16-2024 Basophils/100 WBC (Bld) 0.2 % 0-1 [facility] Bedside Glucoseon 12-16-2024 FINGERSTICK GLU 215 mg/dL High 74-106 [facility] Comment on above: Result Comment: WILDA GEMENT OF PATIENT CARE PER NURSING PROTOCOL Performed By: #### L 501.080 ####[facility] [address] [place], [address] FINGERSTICK GLU 237 mg/dL High 74-106 [facility] Comment on above: Result Comment: WILDA GEMENT OF PATIENT CARE PER NURSING PROTOCOL Performed By: #### L 501.080 ####[facility] [address] [place], [address] FINGERSTICK GLU 152 mg/dL High 74-106 [facility] Comment on above: Result Comment: WILDA GEMENT OF PATIENT CARE PER NURSING PROTOCOL Performed By: #### L 501.080 ####[facility] [address] [place], [address] FINGERSTICK GLU 169 mg/dL High 74-106 [facility] Comment on above: Result Comment: WILDA GEMENT OF PATIENT CARE PER NURSING PROTOCOL Performed By: #### L 501.080 ####[facility] [address] [place], [address] CBC W/Diff, Automatedon 08-1 -2024 Absolute Lymph 0.93 X10 3/uL Normal 0.83-4.51 [facility] Comment on above: Performed By: #### L 500.2500, L100.0100 ####[facility] [address] [place], [address] Absolute Neut 6.6 X10 3/uL Normal 2.0-7.7 [facility] Comment on above: Performed By: #### L 500.2500, L100.0100 ####[facility] [address] [place], [address] Basophils/100 WBC (Bld) 0.2 % Normal 0-1 [facility] Comment on above: Performed By: #### L 500.2500, L100.0100 ####[facility] [address] [place], [address] Eosinophils/100 WBC (Bld) 0.5 % Normal 0-5 [facility] Comment on above: Performed By: #### L 500.2500, L100.0100 ####[facility] [address] [place], [address] Erythrocyte distribution width (RBC) [Ratio] 13.4 % Normal 11.6-14.6 [facility] Comment on above: Performed By: #### L 500.2500, L100.0100 ####[facility] [address] [place], [address] Hematocrit (Bld) [Volume fraction] 40.1 % Normal 40-54 [facility] Comment on above: Performed By: #### L 500.2500, L100.0100 ####[facility] [address] [place], [address] Hemoglobin (Bld) [Mass/Vol] 13.3 g/dL Normal 13.0-16.5 [facility] Comment on above: Performed By: #### L 500.2500, L100.0100 ####[facility] [address] [place], [address] IG% 0.800 Normal 0.0-0.9 [facility] Comment on above: Result Comment: IG% - Immature Granulocytes (promyelocytes, myelocytes andmetamyelocytes) > 1% indicates that a LEFT SHIFT is Present. Performed By: #### L 500.2500, L100.0100 ####[facility] [address] [place], [address] Lymphocytes/100 WBC (Bld) 10.7 % Low 19-41 [facility] Comment on above: Performed By: #### L 500.2500, L100.0100 ####[facility] [address] [place], [address] MCH (RBC) [Entitic mass] 28.6 pg Normal 27.0-32.0 [facility] Comment on above: Performed By: #### L 500.2500, L100.0100 ####[facility] [address] [place], [address] MCHC (RBC) [Mass/Vol] 33.2 g/dL Normal 32-36 [facility] Comment on above: Performed By: #### L 500.2500, L100.0100 ####[facility] [address] [place], [address] MCV (RBC) [Entitic vol] 86.2 fL Normal 80-94 [facility] Comment on above: Performed By: #### L 500.2500, L100.0100 ####[facility] [address] [place], [address] Monocytes/100 WBC (Bld) 12.1 % High 0-10 [facility] Comment on above: Performed By: #### L 500.2500, L100.0100 ####[facility] [address] [place], [address] Neutrophils/100 WBC (Bld) 75.7 % High 47-70 [facility] Comment on above: Performed By: #### L 500.2500, L100.0100 ####[facility] [address] [place], [address] Nucleated RBC (Bld) [#/Vol] 0 10*3/uL Normal 0-5 [facility] Comment on above: Performed By: #### L 500.2500, L100.0100 ####[facility] [address] [place], [address] Platelet mean volume (Bld) [Entitic vol] 13.2 fL High 6.2-12.0 [facility] Comment on above: Performed By: #### L 500.2500, L100.0100 ####[facility] [address] [place], [address] Platelets (Bld) [#/Vol] 181 10*3/uL Normal 150-450 [facility] Comment on above: Performed By: #### L 500.2500, L100.0100 ####[facility] [address] [place], [address] RBC (Bld) [#/Vol] 4.65 10*6/uL Normal 4.6-6.2 [facility] Comment on above: Performed By: #### L 500.2500, L100.0100 ####[facility] [address] [place], [address] RDW SD 42.2 fl Normal 35.1-43.9 [facility] Comment on above: Performed By: #### L 500.2500, L100.0100 ####[facility] [address] [place], [address] WBC (Bld) [#/Vol] 8.7 10*3/uL Normal 4.4-11.0 [facility] Comment on above: Performed By: #### L 500.2500, L100.0100 ####[facility] [address] [place], [address] Carbon dioxide, total [Moles /volume] in Central venous bloodOrdered By: Ramonita Herron on 12-16-2024 CO2 [Moles/Vol] 19.2 mmol/L Low 21.0-32.0 [facility] Chloride assayOrdered By: Parish Herron on 12-16-2024 Chloride [Moles/Vol] 93 mmol/L Low 98-108 [facility] Eosinophil percentageOrdered By: Ramonita Herron on 12-16-2024 Eosinophils/100 WBC (Bld) 0.5 % 0-5 [facility] Erythrocyte distribution wid th ratioOrdered By: Ramonita Herron on 12-16-2024 Erythrocyte distribution width (RBC) [Ratio] 13.4 % 11.6-14.6 [facility] Erythrocyte distribution wid th standard deviationOrdered By: Ramonita Herron on 12-16-2024 Erythrocyte distribution width (RBC) [Ratio] 42.2 fl 35.1-43.9 [facility] Glomerular filtration rate ( GFR) estimation/1.73 sq m using serum, plasma, or whole bOrdered By: Ramonita Herron on 12-16-2024 GFR/1.73 sq M.predicted among non-blacks MDRD (S/P/Bld) [Vol rate/Area] 24 mL/min/{1.73_m2} Low >60 [facility] Hematocrit Auto (Bld) [Volum e fraction]Ordered By: Ramonita Herron on 12-16-2024 Hematocrit (Bld) [Volume fraction] 40.1 % 40-54 [facility] Hemoglobin measurementOrdere d By: Ramonita Herron on 12-16-2024 Hemoglobin (Bld) [Mass/Vol] 13.3 g/dL 13.0-16.5 [facility] Immature granulocytes/100 WB C Auto (Bld)Ordered By: Ramonita Herron on 12-16-2024 Immature granulocytes/100 WBC (Bld) 0.800 % 0.0-0.9 [facility] MCV (mean corpuscular volume ) determinationOrdered By: Ramonita Herron on 12-16-2024 MCV (RBC) [Entitic vol] 86.2 fL 80-94 [facility] Mean corpuscular hemoglobin (MCH) determinationOrdered By: Ramonita Herron on 12-16-2024 MCH (RBC) [Entitic mass] 28.6 pg 27.0-32.0 [facility] Monocyte percentageOrdered B y: Ramonita Herron on 12-16-2024 Monocytes/100 WBC (Bld) 12.1 % High 0-10 [facility] Neutrophil percentageOrdered By: Ramonita Herron on 12-16-2024 Neutrophils/100 WBC (Bld) 75.7 % High 47-70 [facility] Platelet countOrdered By: Parish Herron on 12-16-2024 Platelets (Bld) [#/Vol] 181 10*3/uL 150-450 [facility] Potassium measurement (mass/ volume)Ordered By: Ramonita Herron on 12-16-2024 Potassium (Unsp spec) [Mass/Vol] 3.8 mmol/L 3.3-5.1 [facility] RBC Auto (Bld) [#/Vol]Ordere d By: Ramonita Herron on 12-16-2024 RBC (Bld) [#/Vol] 4.65 10*6/uL 4.6-6.2 [facility] Serum creatinine measurement (mass/volume)Ordered By: Ramonita Herron on 12-16-2024 Creatinine [Mass/Vol] 2.65 mg/dL High 0.70-1.20 [facility] Serum glucose measurement (m ass/volume)Ordered By: Ramonita Herron on 12-16-2024 Glucose [Mass/Vol] 182 mg/dL High 70-99 [facility] Serum or plasma calcium francine urement (mass/volume)Ordered By: Ramonita Herron on 12-16-2024 Calcium [Mass/Vol] 9.3 mg/dL 7.6-11.0 [facility] Serum or plasma urea nitroge n measurement (mass/volume)Ordered By: Ramonita Herron on 12-16-2024 Urea nitrogen [Mass/Vol] 58 mg/dL High 4-19 [facility] Sodium levelOrdered By: Mary Herron on 12-16-2024 Sodium [Moles/Vol] 131 mmol/L Low 133-145 [facility] White blood cell (WBC) count Ordered By: Ramonita Herron on 12-16-2024 WBC (Bld) [#/Vol] 8.7 10*3/uL 4.4-11.0 [facility] 12 Lead EKGon 12-15-2024 12 Lead EKG Normal [facility] Activated partial thrombopla stin time (aPTT) in platelet poor plasma by coagulation aOrdered By: Payal Weldon on 12-15-2024 aPTT Coag (PPP) [Time] 222.8 s High 24.1-36.[address] [facility] Basic Metabolic Profile (BMP )on 12-15-2024 BUN/CRE 20.4 RATIO High 10-20 [facility] Comment on above: Performed By: #### L 100.0100, L300.4310, L300.3900, L503.7505, L500.2500, L501.4021 ####[facility] [address] [place], [address] Calcium [Mass/Vol] 9.5 mg/dL Normal 7.6-11.0 [facility] Comment on above: Performed By: #### L 100.0100, L300.4310, L300.3900, L503.7505, L500.2500, L501.4021 ####[facility] [address] [place], [address] Chloride [Moles/Vol] 91 mmol/L Low 98-108 [facility] Comment on above: Performed By: #### L 100.0100, L300.4310, L300.3900, L503.7505, L500.2500, L501.4021 ####[facility] [address] [place], [address] CO2 [Moles/Vol] 18.4 mmol/L Low 21.0-32.0 [facility] Comment on above: Performed By: #### L 100.0100, L300.4310, L300.3900, L503.7505, L500.2500, L501.4021 ####[facility] [address] [place], [address] Creatinine [Mass/Vol] 2.90 mg/dL High 0.70-1.20 [facility] Comment on above: Performed By: #### L 100.0100, L300.4310, L300.3900, L503.7505, L500.2500, L501.4021 ####[facility] [address] [place], [address] ECRCL 23.97 ml/min Low 50-250 [facility] Comment on above: Performed By: #### L 100.0100, L300.4310, L300.3900, L503.7505, L500.2500, L501.4021 ####[facility] [address] [place], [address] GAP 19 High 5-15 [facility] Comment on above: Performed By: #### L 100.0100, L300.4310, L300.3900, L503.7505, L500.2500, L501.4021 ####[facility] [address] [place], [address] GFR/1.73 sq M.predicted among non-blacks MDRD (S/P/Bld) [Vol rate/Area] 21 mL/min/{1.73_m2} Low >60 [facility] Comment on above: Result Comment: mL/m in/1.73m2 CKD-EPI Creatinine Equation (2020) Performed By: #### L 100.0100, L300.4310, L300.3900, L503.7505, L500.2500, L501.4021 ####[facility] [address] [place], [address] Glucose [Mass/Vol] 266 mg/dL High 70-99 [facility] Comment on above: Performed By: #### L 100.0100, L300.4310, L300.3900, L503.7505, L500.2500, L501.4021 ####[facility] [address] [place], [address] Potassium [Moles/Vol] 4.5 mmol/L Normal 3.3-5.1 [facility] Comment on above: Performed By: #### L 100.0100, L300.4310, L300.3900, L503.7505, L500.2500, L501.4021 ####[facility] [address] [place], [address] Sodium [Moles/Vol] 129 mmol/L Low 133-145 [facility] Comment on above: Performed By: #### L 100.0100, L300.4310, L300.3900, L503.7505, L500.2500, L501.4021 ####[facility] [address] [place], [address] Urea nitrogen [Mass/Vol] 59 mg/dL High 4-19 [facility] Comment on above: Performed By: #### L 100.0100, L300.4310, L300.3900, L503.7505, L500.2500, L501.4021 ####[facility] [address] [place], [address] Bedside Glucoseon 12-15-2024 FINGERSTICK GLU 192 mg/dL High 74-106 [facility] Comment on above: Result Comment: WILDA GEMENT OF PATIENT CARE PER NURSING PROTOCOL Performed By: #### L 501.080 ####[facility] [address] [place], [address] FINGERSTICK GLU 186 mg/dL High 74-106 [facility] Comment on above: Result Comment: WILDA GEMENT OF PATIENT CARE PER NURSING PROTOCOL Performed By: #### L 501.080 ####[facility] [address] [place], [address] CBC W/Diff, Automatedon 12-01 Absolute Lymph 1.43 X10 3/uL Normal 0.83-4.51 [facility] Comment on above: Performed By: #### L 100.0100, L300.4310, L300.3900, L503.7505, L500.2500, L501.4021 ####[facility] [address] [place], [address] Absolute Neut 11.7 X10 3/uL High 2.0-7.7 [facility] Comment on above: Performed By: #### L 100.0100, L300.4310, L300.3900, L503.7505, L500.2500, L501.4021 ####[facility] [address] [place], [address] Basophils/100 WBC (Bld) 0.2 % Normal 0-1 [facility] Comment on above: Performed By: #### L 100.0100, L300.4310, L300.3900, L503.7505, L500.2500, L501.4021 ####[facility] [address] [place], [address] Eosinophils/100 WBC (Bld) 0.1 % Normal 0-5 [facility] Comment on above: Performed By: #### L 100.0100, L300.4310, L300.3900, L503.7505, L500.2500, L501.4021 ####[facility] [address] [place], [address] Erythrocyte distribution width (RBC) [Ratio] 13.4 % Normal 11.6-14.6 [facility] Comment on above: Performed By: #### L 100.0100, L300.4310, L300.3900, L503.7505, L500.2500, L501.4021 ####[facility] [address] [place], [address] Hematocrit (Bld) [Volume fraction] 40.2 % Normal 40-54 [facility] Comment on above: Performed By: #### L 100.0100, L300.4310, L300.3900, L503.7505, L500.2500, L501.4021 ####[facility] [address] [place], [address] Hemoglobin (Bld) [Mass/Vol] 13.7 g/dL Normal 13.0-16.5 [facility] Comment on above: Performed By: #### L 100.0100, L300.4310, L300.3900, L503.7505, L500.2500, L501.4021 ####[facility] [address] [place], [address] IG% 0.800 Normal 0.0-0.9 [facility] Comment on above: Result Comment: IG% - Immature Granulocytes (promyelocytes, myelocytes andmetamyelocytes) > 1% indicates that a LEFT SHIFT is Present. Performed By: #### L 100.0100, L300.4310, L300.3900, L503.7505, L500.2500, L501.4021 ####[facility] [address] [place], [address] Lymphocytes/100 WBC (Bld) 9.7 % Low 19-41 [facility] Comment on above: Performed By: #### L 100.0100, L300.4310, L300.3900, L503.7505, L500.2500, L501.4021 ####[facility] [address] [place], [address] MCH (RBC) [Entitic mass] 29.0 pg Normal 27.0-32.0 [facility] Comment on above: Performed By: #### L 100.0100, L300.4310, L300.3900, L503.7505, L500.2500, L501.4021 ####[facility] [address] [place], [address] MCHC (RBC) [Mass/Vol] 34.1 g/dL Normal 32-36 [facility] Comment on above: Performed By: #### L 100.0100, L300.4310, L300.3900, L503.7505, L500.2500, L501.4021 ####[facility] [address] [place], [address] MCV (RBC) [Entitic vol] 85.2 fL Normal 80-94 [facility] Comment on above: Performed By: #### L 100.0100, L300.4310, L300.3900, L503.7505, L500.2500, L501.4021 ####[facility] [address] [place], [address] Monocytes/100 WBC (Bld) 9.9 % Normal 0-10 [facility] Comment on above: Performed By: #### L 100.0100, L300.4310, L300.3900, L503.7505, L500.2500, L501.4021 ####[facility] [address] [place], [address] Neutrophils/100 WBC (Bld) 79.3 % High 47-70 [facility] Comment on above: Performed By: #### L 100.0100, L300.4310, L300.3900, L503.7505, L500.2500, L501.4021 ####[facility] [address] [place], [address] Nucleated RBC (Bld) [#/Vol] 0 10*3/uL Normal 0-5 [facility] Comment on above: Performed By: #### L 100.0100, L300.4310, L300.3900, L503.7505, L500.2500, L501.4021 ####[facility] [address] [place], [address] Platelet mean volume (Bld) [Entitic vol] 13.4 fL High 6.2-12.0 [facility] Comment on above: Performed By: #### L 100.0100, L300.4310, L300.3900, L503.7505, L500.2500, L501.4021 ####[facility] [address] [place], [address] Platelets (Bld) [#/Vol] 242 10*3/uL Normal 150-450 [facility] Comment on above: Performed By: #### L 100.0100, L300.4310, L300.3900, L503.7505, L500.2500, L501.4021 ####[facility] [address] [place], [address] RBC (Bld) [#/Vol] 4.72 10*6/uL Normal 4.6-6.2 [facility] Comment on above: Performed By: #### L 100.0100, L300.4310, L300.3900, L503.7505, L500.2500, L501.4021 ####[facility] [address] [place], [address] RDW SD 41.6 fl Normal 35.1-43.9 [facility] Comment on above: Performed By: #### L 100.0100, L300.4310, L300.3900, L503.7505, L500.2500, L501.4021 ####[facility] [address] [place], [address] WBC (Bld) [#/Vol] 14.8 10*3/uL High 4.4-11.0 [facility] Comment on above: Performed By: #### L 100.0100, L300.4310, L300.3900, L503.7505, L500.2500, L501.4021 ####[facility] [address] [place], [address] Chest 1 View (Portable)on Chest 1 View (Portable) Normal [facility] Consultation - Cardiologyon 12-15-2024 Consultation - Cardiology Normal [facility] Echo, Limited Studyon 2024 Echo, Limited Study Normal [facility] Emergency Department Summary on 12-15-2024 Emergency Department Summary Normal [facility] H AND P Exam - Hospitaliston 12-15-2024 H&P Exam - Hospitalist Normal [facility] L501.4021on 12-15-2024 Trop T High Sen 1137 ng/L Invalid Interpretation Code <=22 [facility] Comment on above: Result Comment: Crit ical Result(s) Called at 1318: by: MONICA KOO.??Results read back by same. Performed By: #### L 100.0100, L300.4310, L300.3900, L503.7505, L500.2500, L501.4021 ####[facility] [address] [place], [address] Limited echocardiogram repor tOrdered By: Sunil Faye on 12-15-2024 Study report [facility] Natriuretic peptide.B prohor efrem N-Terminal [Mass/volume] in Serum or PlasmaOrdered By: Payal Weldon on 12-15-2024 Natriuretic peptide.B prohormone N-Terminal [Mass/Vol] 1961 pg/mL High <1800 [facility] Partial Thromboplast Timeon 12-15-2024 aPTT Coag (Bld) [Time] 222.8 s Invalid Interpretation Code 24.1-36.2 [facility] Comment on above: Order Comment: CRITI KENNEY VALUE CALLED TO sandy archer12/15/24 1355 Lexii Huynh.RESULTS READ BACK BY same Performed By: #### L 100.0100, L300.4310, L300.3900, L503.7505, L500.2500, L501.4021 ####[facility] [address] [place], [address] Pro- Brain NATRIURETIC PEPTI Sharon 12-15-2024 Natriuretic peptide B (Bld) [Mass/Vol] 1961 pg/mL High <=1800 [facility] Comment on above: Result Comment: Hear t Failure Unlikely: < 300 pg/mLHeart Failure Likely< 50 Years: > 450 pg/mL50-75 Years: > 900 pg/mL>75 Years: > 1800 pg/mL Performed By: #### L 100.0100, L300.4310, L300.3900, L503.7505, L500.2500, L501.4021 ####[facility] [address] [place], [address] Prothrombin Time w/INRon INR Coag (PPP) [Relative time] 1.3 {INR} Normal [facility] Comment on above: Order Comment: CRITI KENNEY VALUE CALLED TO sandy [facility]12/15/24 [facility].RESULTS READ BACK BY same Performed By: #### L 100.0100, L300.4310, L300.3900, L503.7505, L500.2500, L501.4021 ####[facility] [address] [place], [address] PT Coag (PPP) [Time] 16.8 s High 11.7-14.9 [facility] Comment on above: Order Comment: CRITI KENNEY VALUE CALLED TO sandy [facility]12/15/24 1355 Lexii Huynh.RESULTS READ BACK BY same Performed By: #### L 100.0100, L300.4310, L300.3900, L503.7505, L500.2500, L501.4021 ####[facility] [address] [place], [address] Prothrombin timeOrdered By: Payal Weldon on 12-15-2024 PT Coag (PPP) [Time] 16.8 s High 11.7-14.9 [facility] Troponin T HS 2 HRon 025 Trop T High Sen 1199 ng/L Invalid Interpretation Code <=22 [facility] Comment on above: Order Comment: WAS T O BE DRAWN AT 1411 STILL IN ER AT 1440 CALLED ER [facility] THEY'RE BUSY BUT SHELL ELT THE NURSE KNOW Result Comment: Crit ical Result(s) Called at 1718: by:MONICA ANTONIO. ??Results read back by same. Performed By: #### L 499.0042 ####[facility] [address] [place], [place], [address] Troponin T HS 4 HRon 025 Trop T High Sen 1115 ng/L Invalid Interpretation Code <=22 [facility] Comment on above: Result Comment: Crit ical result called 12/15/2024-20:19 by Seymour Mcclure. Results read back by same.Hemolysis present, Results??could be affected.??Critical Result(s) Called at: by:??Results read back bysa. Performed By: #### L 499.0043 ####[facility] [address] [place], [address] Troponin T.cardiac [Mass/vol ume] in Serum or Plasma by High sensitivity methodOrdered By: Payal Weldon on 12-15-2024 Troponin T.cardiac High sensitivity method [Mass/Vol] 1115 ng/L High <22 [facility] Troponin T.cardiac High sensitivity method [Mass/Vol] 1199 ng/L High <22 [facility] Troponin T.cardiac High sensitivity method [Mass/Vol] 1137 ng/L High <22 [facility] Cardiac Cath Interventionon 12-14-2024 Cardiac Cath Intervention Normal [facility] Absolute lymphocyte countOrd ered By: Boyd Rock on 12-13-2024 Lymphocytes Auto (Unsp spec) [#/Vol] 1.28 10*3/uL 0.83-4.51 [facility] Anion gap in Serum or Plasma Ordered By: Boyd Rock on 12-13-2024 Anion gap [Moles/Vol] 21 mmol/L High 5-15 [facility] Automated lymphocyte count a s percentage of total leukocytesOrdered By: Boyd Rock on 12-13-2024 Lymphocytes/100 WBC Auto (Unsp spec) 9.3 % Low 19-41 [facility] BUN/creatinine ratioOrdered By: Boyd Rock on 12-13-2024 Urea nitrogen/Creatinine [Mass ratio] 18.7 mg/mg 10-20 [facility] Basophil percentageOrdered B y: Boyd Rock on 12-13-2024 Basophils/100 WBC (Bld) 0.4 % 0-1 [facility] Bilirubin, totalOrdered By: Boyd Rock on 12-13-2024 Bilirubin [Mass/Vol] 1.60 mg/dL High 0.00-1.30 [facility] Carbon dioxide, total [Moles /volume] in Central venous bloodOrdered By: Boyd Rock on 12-13-2024 CO2 [Moles/Vol] 15.7 mmol/L Low 21.0-32.0 [facility] Chloride assayOrdered By: Susanna Rock on 12-13-2024 Chloride [Moles/Vol] 93 mmol/L Low 98-108 [facility] Eosinophil percentageOrdered By: Boyd Rock 12-13-2024 Eosinophils/100 WBC (Bld) 1.5 % 0-5 [facility] Erythrocyte distribution wid th ratioOrdered By: andrés Rock on 12-13-2024 Erythrocyte distribution width (RBC) [Ratio] 14.3 % 11.6-14.6 [facility] Erythrocyte distribution wid th standard deviationOrdered By: Lupesouthsidebrittni Rock on 12-13-2024 Erythrocyte distribution width (RBC) [Ratio] 45.2 fl High 35.1-43.9 [facility] Glomerular filtration rate ( GFR) estimation/1.73 sq m using serum, plasma, or whole bOrdered By: Boyd Rock on 12-13-2024 GFR/1.73 sq M.predicted among non-blacks MDRD (S/P/Bld) [Vol rate/Area] 19 mL/min/{1.73_m2} Low >60 [facility] Hematocrit Auto (Bld) [Volum e fraction]Ordered By: Boyd Rock 12-13-2024 Hematocrit (Bld) [Volume fraction] 35.9 % Low 40-54 [facility] Hemoglobin measurementOrdere d By: Boyd Rock on 12-13-2024 Hemoglobin (Bld) [Mass/Vol] 11.8 g/dL Low 13.0-16.5 [facility] Immature granulocytes/100 WB C Auto (Bld)Ordered By: Boyd Rock 12-13-2024 Immature granulocytes/100 WBC (Bld) 0.700 % 0.0-0.9 [facility] MCV (mean corpuscular volume ) determinationOrdered By: Boyd Rock 12-13-2024 MCV (RBC) [Entitic vol] 87.6 fL 80-94 [facility] Mean corpuscular hemoglobin (MCH) determinationOrdered By: Boyd Rock on 12-13-2024 MCH (RBC) [Entitic mass] 28.8 pg 27.0-32.0 [facility] Monocyte percentageOrdered B y: Boyd Rock on 12-13-2024 Monocytes/100 WBC (Bld) 8.7 % 0-10 [facility] Neutrophil percentageOrdered By: Boyd Rock on 12-13-2024 Neutrophils/100 WBC (Bld) 79.4 % High 47-70 [facility] No Panel InformationOrdered By: Boyd Rock on 12-13-2024 29 U/L <38 [facility] Platelet countOrdered By: Susanna Rock on 12-13-2024 Platelets (Bld) [#/Vol] 199 10*3/uL 150-450 [facility] Potassium measurement (mass/ volume)Ordered By: Boyd Rock on 12-13-2024 Potassium (Unsp spec) [Mass/Vol] 5.1 mmol/L 3.3-5.1 [facility] RBC Auto (Bld) [#/Vol]Ordere d By: Boyd Rock on 12-13-2024 RBC (Bld) [#/Vol] 4.10 10*6/uL Low 4.6-6.2 [facility] Serum creatinine measurement (mass/volume)Ordered By: Boyd Rock on 12-13-2024 Creatinine [Mass/Vol] 3.18 mg/dL High 0.70-1.20 [facility] Serum globulin measurementOr dered By: Boyd Rock on 12-13-2024 Globulin (S) [Mass/Vol] 4.2 g/dL 2.2-4.2 [facility] Serum glucose measurement (m ass/volume)Ordered By: Boyd Rock on 12-13-2024 Glucose [Mass/Vol] 289 mg/dL High 70-99 [facility] Serum or plasma alanine guerrero otransferase (ALT) measurementOrdered By: Boyd Rock on 12-13-2024 ALT [Catalytic activity/Vol] 22 U/L <47 [facility] Serum or plasma albumin francine urement (mass/volume)Ordered By: Boyd Rock on 12-13-2024 Albumin [Mass/Vol] 4.1 g/dL 3.4-4.8 [facility] Serum or plasma albumin/glob ulin mass ratioOrdered By: Boyd Castañedamiveroncia on 12-13-2024 Albumin/Globulin [Mass ratio] 1.0 {ratio} 0.9-2.4 [facility] Serum or plasma alkaline bell sphatase measurementOrdered By: Boyd Rock on 12-13-2024 ALP [Catalytic activity/Vol] 147 U/L High 40-129 [facility] Serum or plasma calcium francine urement (mass/volume)Ordered By: Boyd Rock on 12-13-2024 Calcium [Mass/Vol] 9.7 mg/dL 7.6-11.0 [facility] Serum or plasma urea nitroge n measurement (mass/volume)Ordered By: Boyd Rock on 12-13-2024 Urea nitrogen [Mass/Vol] 59 mg/dL High 4-19 [facility] Sodium levelOrdered By: Lupe tesha Garrymiveronica on 12-13-2024 Sodium [Moles/Vol] 130 mmol/L Low 133-145 [facility] T4 freeOrdered By: Lupeabbeybrittni Castañedamiveronica on 12-13-2024 Free T4 [Mass/Vol] 1.40 ng/dL 0.76-1.46 [facility] Total proteinOrdered By: Anastacio lillianbrittni Rock on 12-13-2024 Protein [Mass/Vol] 8.3 g/dL 5.9-8.4 [facility] White blood cell (WBC) count Ordered By: Boyd Rock on 12-13-2024 WBC (Bld) [#/Vol] 13.7 10*3/uL High 4.4-11.0 [facility] Anion gap in Serum or Plasma Ordered By: Gustabo Pérez on 12-12-2024 Anion gap [Moles/Vol] 17 mmol/L High 5-15 [facility] BUN/creatinine ratioOrdered By: Gustabo Pérez on 12-12-2024 Urea nitrogen/Creatinine [Mass ratio] 17.9 mg/mg 10- [facility] Basic Metabolic Profile (BMP )on 12-12-2024 BUN/CRE 17.9 RATIO Normal - [facility] Comment on above: Performed By: #### L 500.2500 ####[facility] [address] [place], [address] Calcium [Mass/Vol] 9.6 mg/dL Normal 7.6-11.0 [facility] Comment on above: Performed By: #### L 500.2500 ####[facility] [address] [place], [address] Chloride [Moles/Vol] 93 mmol/L Low 98-108 [facility] Comment on above: Performed By: #### L 500.2500 ####[facility] [address] [place], [address] CO2 [Moles/Vol] 18.2 mmol/L Low 21.0-32.0 [facility] Comment on above: Performed By: #### L 500.2500 ####[facility] [address] [place], [address] Creatinine [Mass/Vol] 3.15 mg/dL High 0.70-1.20 [facility] Comment on above: Performed By: #### L 500.2500 ####[facility] [address] [place], [address] GAP 17 High 5-15 [facility] Comment on above: Performed By: #### L 500.2500 ####[facility] [address] [place], [address] GFR/1.73 sq M.predicted among non-blacks MDRD (S/P/Bld) [Vol rate/Area] 19 mL/min/{1.73_m2} Low >60 [facility] Comment on above: Result Comment: mL/m in/1.73m2 CKD-EPI Creatinine Equation (2020) Performed By: #### L 500.2500 ####[facility] [address] [place], [address] Glucose [Mass/Vol] 289 mg/dL High 70-99 [facility] Comment on above: Performed By: #### L 500.2500 ####[facility] [address] [place], [address] Potassium [Moles/Vol] 5.0 mmol/L Normal 3.3-5.1 [facility] Comment on above: Result Comment: Hemo lysis present, Results??could be affected.?? Performed By: #### L 500.2500 ####[facility] [address] [place], [address] Sodium [Moles/Vol] 128 mmol/L Low 133-145 [facility] Comment on above: Performed By: #### L 500.2500 ####[facility] [address] [place], [address] Urea nitrogen [Mass/Vol] 56 mg/dL High 4-19 [facility] Comment on above: Performed By: #### L 500.2500 ####[facility] [address] [place], [address] Carbon dioxide, total [Moles /volume] in Central venous bloodOrdered By: Gustabo Pérez on 12-12-2024 CO2 [Moles/Vol] 18.2 mmol/L Low 21.0-32.0 [facility] Cardiology Visit Reporton Cardiology Visit Report Normal [facility] Chloride assayOrdered By: Lydia Pérez on 12-12-2024 Chloride [Moles/Vol] 93 mmol/L Low 98-108 [facility] Glomerular filtration rate ( GFR) estimation/1.73 sq m using serum, plasma, or whole bOrdered By: Gustabo Pérez on 12-12-2024 GFR/1.73 sq M.predicted among non-blacks MDRD (S/P/Bld) [Vol rate/Area] 19 mL/min/{1.73_m2} Low >60 [facility] Potassium measurement (mass/ volume)Ordered By: Gustabo Pérez on 12-12-2024 Potassium (Unsp spec) [Mass/Vol] 5.0 mmol/L 3.3-5.1 [facility] Serum creatinine measurement (mass/volume)Ordered By: Gustabo Pérez on 12-12-2024 Creatinine [Mass/Vol] 3.15 mg/dL High 0.70-1.20 [facility] Serum glucose measurement (m ass/volume)Ordered By: Gustabo Pérez on 12-12-2024 Glucose [Mass/Vol] 289 mg/dL High 70-99 [facility] Serum or plasma calcium francine urement (mass/volume)Ordered By: Gustabo Pérez on 12-12-2024 Calcium [Mass/Vol] 9.6 mg/dL 7.6-11.0 [facility] Serum or plasma urea nitroge n measurement (mass/volume)Ordered By: Gustabo Pérez on 12-12-2024 Urea nitrogen [Mass/Vol] 56 mg/dL High 4-19 [facility] Sodium levelOrdered By: Gustabo Pérez on 12-12-2024 Sodium [Moles/Vol] 128 mmol/L Low 133-145 [facility] Cardiac Cath Interventionon 12-11-2024 Cardiac Cath Intervention Normal [facility] Absolute lymphocyte countOrd ered By: Shaan Santos on 12-08-2024 Lymphocytes Auto (Unsp spec) [#/Vol] 1.20 10*3/uL 0.83-4.51 [facility] Anion gap in Serum or Plasma Ordered By: Shaan Santos on 12-08-2024 Anion gap [Moles/Vol] 18 mmol/L High 5-15 [facility] Automated lymphocyte count a s percentage of total leukocytesOrdered By: Shaan Santos on 12-08-2024 Lymphocytes/100 WBC Auto (Unsp spec) 11.4 % Low 19-41 [facility] BUN/creatinine ratioOrdered By: Shaan Santos on 12-08-2024 Urea nitrogen/Creatinine [Mass ratio] 15.6 mg/mg 10-20 [facility] Basic Metabolic Profile (BMP )on 12-08-2024 BUN/CRE 15.6 RATIO Normal 10-20 [facility] Comment on above: Performed By: #### L 100.0100, L500.2500 ####[facility] [address] [place], [address] Calcium [Mass/Vol] 9.6 mg/dL Normal 7.6-11.0 [facility] Comment on above: Performed By: #### L 100.0100, L500.2500 ####[facility] [address] [place], [address] Chloride [Moles/Vol] 95 mmol/L Low 98-108 [facility] Comment on above: Performed By: #### L 100.0100, L500.2500 ####[facility] [address] [place], [address] CO2 [Moles/Vol] 21.2 mmol/L Normal 21.0-32.0 [facility] Comment on above: Performed By: #### L 100.0100, L500.2500 ####[facility] [address] [place], [address] Creatinine [Mass/Vol] 2.84 mg/dL High 0.70-1.20 [facility] Comment on above: Performed By: #### L 100.0100, L500.2500 ####[facility] [address] [place], [address] ECRCL 24.45 ml/min Low 50-250 [facility] Comment on above: Performed By: #### L 100.0100, L500.2500 ####[facility] [address] [place], [address] GAP 18 High 5-15 [facility] Comment on above: Performed By: #### L 100.0100, L500.2500 ####[facility] [address] [place], [address] GFR/1.73 sq M.predicted among non-blacks MDRD (S/P/Bld) [Vol rate/Area] 22 mL/min/{1.73_m2} Low >60 [facility] Comment on above: Result Comment: mL/m in/1.73m2 CKD-EPI Creatinine Equation (2020) Performed By: #### L 100.0100, L500.2500 ####[facility] [address] [place], [address] Glucose [Mass/Vol] 178 mg/dL High 70-99 [facility] Comment on above: Performed By: #### L 100.0100, L500.2500 ####[facility] [address] [place], [address] Potassium [Moles/Vol] 3.4 mmol/L Normal 3.3-5.1 [facility] Comment on above: Performed By: #### L 100.0100, L500.2500 ####[facility] [address] [place], [address] Sodium [Moles/Vol] 134 mmol/L Normal 133-145 [facility] Comment on above: Performed By: #### L 100.0100, L500.2500 ####[facility] [address] [place], [address] Urea nitrogen [Mass/Vol] 44 mg/dL High 4-19 [facility] Comment on above: Performed By: #### L 100.0100, L500.2500 ####[facility] [address] [place], [address] BUN Normal 4-19 [facility] Comment on above: Result Comment: [employer] crews via OM: Order cancelled - Patient discharged Performed By: #### L 500.2500, L100.0100 ####[facility] [address] [place], [address] BUN/CRE Normal 10-20 [facility] Comment on above: Result Comment: Canc elled via OM: Order cancelled - Patient discharged Performed By: #### L 500.2500, L100.0100 ####[facility] [address] [place], [address] Calcium Normal 7.6-11.0 [facility] Comment on above: Result Comment: Canc elled via OM: Order cancelled - Patient discharged Performed By: #### L 500.2500, L100.0100 ####[facility] [address] [place], [address] CL Normal 98-108 [facility] Comment on above: Result Comment: Canc elled via OM: Order cancelled - Patient discharged Performed By: #### L 500.2500, L100.0100 ####[facility] [address] [place], [address] CO2 Normal 21.0-32.0 [facility] Comment on above: Result Comment: Canc elled via OM: Order cancelled - Patient discharged Performed By: #### L 500.2500, L100.0100 ####[facility] [address] [place], [address] CREAT,SERUM Normal 0.70-1.20 [facility] Comment on above: Result Comment: Canc elled via OM: Order cancelled - Patient discharged Performed By: #### L 500.2500, L100.0100 ####[facility] [address] [place], [address] eGFR Normal >60 [facility] Comment on above: Result Comment: Canc elled via OM: Order cancelled - Patient discharged Performed By: #### L 500.2500, L100.0100 ####[facility] [address] [place], [address] GAP Normal 5-15 [facility] Comment on above: Result Comment: Canc elled via OM: Order cancelled - Patient discharged Performed By: #### L 500.2500, L100.0100 ####[facility] [address] [place], [address] GLU Normal 70-99 [facility] Comment on above: Result Comment: Canc elled via OM: Order cancelled - Patient discharged Performed By: #### L 500.2500, L100.0100 ####[facility] [address] [place], [address] Potassium Normal 3.3-5.1 [facility] Comment on above: Result Comment: Canc elled via OM: Order cancelled - Patient discharged Performed By: #### L 500.2500, L100.0100 ####[facility] [address] [place], [address] Basic Metabolic Profile (BMP) Normal 133-145 [facility] Comment on above: Result Comment: Canc elled via OM: Order cancelled - Patient discharged Performed By: #### L 500.2500, L100.0100 ####[facility] [address] [place], [address] Basophil percentageOrdered B y: Shaan Santos on 12-08-2024 Basophils/100 WBC (Bld) 0.5 % 0-1 [facility] Bedside Glucoseon 12-08-2024 FINGERSTICK GLU 249 mg/dL High 74-106 [facility] Comment on above: Result Comment: WILDA GEMENT OF PATIENT CARE PER NURSING PROTOCOL Performed By: #### L 501.080 ####[facility] [address] [place], [address] FINGERSTICK GLU 185 mg/dL High 74-106 [facility] Comment on above: Result Comment: WILDA GEMENT OF PATIENT CARE PER NURSING PROTOCOL Performed By: #### L 501.080 ####[facility] [address] [place], [address] FINGERSTICK GLU 222 mg/dL High 74-106 [facility] Comment on above: Result Comment: WILDA GEMENT OF PATIENT CARE PER NURSING PROTOCOL Performed By: #### L 501.080 ####[facility] [address] [place], [address] CBC W/Diff, Automatedon 08-0 8-2024 Absolute Lymph 1.20 X10 3/uL Normal 0.83-4.51 [facility] Comment on above: Performed By: #### L 100.0100, L500.2500 ####[facility] [address] [place], [address] Absolute Neut 7.8 X10 3/uL High 2.0-7.7 [facility] Comment on above: Performed By: #### L 100.0100, L500.2500 ####[facility] [address] [place], [address] Basophils/100 WBC (Bld) 0.5 % Normal 0-1 [facility] Comment on above: Performed By: #### L 100.0100, L500.2500 ####[facility] [address] [place], [address] Eosinophils/100 WBC (Bld) 1.0 % Normal 0-5 [facility] Comment on above: Performed By: #### L 100.0100, L500.2500 ####[facility] [address] [place], [address] Erythrocyte distribution width (RBC) [Ratio] 13.4 % Normal 11.6-14.6 [facility] Comment on above: Performed By: #### L 100.0100, L500.2500 ####[facility] [address] [place], [address] Hematocrit (Bld) [Volume fraction] 39.2 % Low 40-54 [facility] Comment on above: Performed By: #### L 100.0100, L500.2500 ####[facility] [address] [place], [address] Hemoglobin (Bld) [Mass/Vol] 12.9 g/dL Low 13.0-16.5 [facility] Comment on above: Performed By: #### L 100.0100, L500.2500 ####[facility] [address] [place], [address] IG% 0.900 Normal 0.0-0.9 [facility] Comment on above: Result Comment: IG% - Immature Granulocytes (promyelocytes, myelocytes andmetamyelocytes) > 1% indicates that a LEFT SHIFT is Present. Performed By: #### L 100.0100, L500.2500 ####[facility] [address] [place], [address] Lymphocytes/100 WBC (Bld) 11.4 % Low 19-41 [facility] Comment on above: Performed By: #### L 100.0100, L500.2500 ####[facility] [address] [place], [address] MCH (RBC) [Entitic mass] 28.9 pg Normal 27.0-32.0 [facility] Comment on above: Performed By: #### L 100.0100, L500.2500 ####[facility] [address] [place], [address] MCHC (RBC) [Mass/Vol] 32.9 g/dL Normal 32-36 [facility] Comment on above: Performed By: #### L 100.0100, L500.2500 ####[facility] [address] [place], [address] MCV (RBC) [Entitic vol] 87.7 fL Normal 80-94 [facility] Comment on above: Performed By: #### L 100.0100, L500.2500 ####[facility] [address] [place], [address] Monocytes/100 WBC (Bld) 12.1 % High 0-10 [facility] Comment on above: Performed By: #### L 100.0100, L500.2500 ####[facility] [address] [place], [address] Neutrophils/100 WBC (Bld) 74.1 % High 47-70 [facility] Comment on above: Performed By: #### L 100.0100, L500.2500 ####[facility] [address] [place], [address] Nucleated RBC (Bld) [#/Vol] 0 10*3/uL Normal 0-5 [facility] Comment on above: Performed By: #### L 100.0100, L500.2500 ####[facility] [address] [place], [address] Platelet mean volume (Bld) [Entitic vol] 13.2 fL High 6.2-12.0 [facility] Comment on above: Performed By: #### L 100.0100, L500.2500 ####[facility] [address] [place], [address] Platelets (Bld) [#/Vol] 178 10*3/uL Normal 150-450 [facility] Comment on above: Performed By: #### L 100.0100, L500.2500 ####[facility] [address] [place], [address] RBC (Bld) [#/Vol] 4.47 10*6/uL Low 4.6-6.2 [facility] Comment on above: Performed By: #### L 100.0100, L500.2500 ####[facility] [address] [place], [address] RDW SD 42.8 fl Normal 35.1-43.9 [facility] Comment on above: Performed By: #### L 100.0100, L500.2500 ####[facility] [address] [place], [address] WBC (Bld) [#/Vol] 10.5 10*3/uL Normal 4.4-11.0 [facility] Comment on above: Performed By: #### L 100.0100, L500.2500 ####[facility] [address] [place], [address] Absolute Neut Normal 2.0-7.7 [facility] Comment on above: Result Comment: Canc elled via OM: Order cancelled - Patient discharged Performed By: #### L 500.2500, L100.0100 ####[facility] [address] [place], [address] HCT Normal 40-54 [facility] Comment on above: Result Comment: Canc elled via OM: Order cancelled - Patient discharged Performed By: #### L 500.2500, L100.0100 ####[facility] [address] [place], [address] HGB Normal 13.0-16.5 [facility] Comment on above: Result Comment: Canc elled via OM: Order cancelled - Patient discharged Performed By: #### L 500.2500, L100.0100 ####[facility] [address] [place], [address] MCH Normal 27.0-32.0 [facility] Comment on above: Result Comment: Canc elled via OM: Order cancelled - Patient discharged Performed By: #### L 500.2500, L100.0100 ####[facility] [address] [place], [address] MCHC Normal 32-36 [facility] Comment on above: Result Comment: Canc elled via OM: Order cancelled - Patient discharged Performed By: #### L 500.2500, L100.0100 ####[facility] [address] [place], [address] MCV Normal 80-94 [facility] Comment on above: Result Comment: Canc elled via OM: Order cancelled - Patient discharged Performed By: #### L 500.2500, L100.0100 ####[facility] [address] [place], [address] NEUT% Normal 47-70 [facility] Comment on above: Result Comment: Canc elled via OM: Order cancelled - Patient discharged Performed By: #### L 500.2500, L100.0100 ####[facility] [address] [place], [address] PLT Normal 150-450 [facility] Comment on above: Result Comment: Canc elled via OM: Order cancelled - Patient discharged Performed By: #### L 500.2500, L100.0100 ####[facility] [address] [place], [address] RBC Normal 4.6-6.2 [facility] Comment on above: Result Comment: Canc elled via OM: Order cancelled - Patient discharged Performed By: #### L 500.2500, L100.0100 ####[facility] [address] [place], [address] RDW CV Normal 11.6-14.6 [facility] Comment on above: Result Comment: Canc elled via OM: Order cancelled - Patient discharged Performed By: #### L 500.2500, L100.0100 ####[facility] [address] [place], [address] RDW SD Normal 35.1-43.9 [facility] Comment on above: Result Comment: Canc elled via OM: Order cancelled - Patient discharged Performed By: #### L 500.2500, L100.0100 ####[facility] [address] [place], [address] WBC Normal 4.4-11.0 [facility] Comment on above: Result Comment: Canc elled via OM: Order cancelled - Patient discharged Performed By: #### L 500.2500, L100.0100 ####[facility] [address] [place], [address] Carbon dioxide, total [Moles /volume] in Central venous bloodOrdered By: Shaan Santos on 12-08-2024 CO2 [Moles/Vol] 21.2 mmol/L 21.0-32.0 [facility] Chloride assayOrdered By: Charlie Santos on 12-08-2024 Chloride [Moles/Vol] 95 mmol/L Low 98-108 [facility] Eosinophil percentageOrdered By: Shaan Santos on 12-08-2024 Eosinophils/100 WBC (Bld) 1.0 % 0-5 [facility] Erythrocyte distribution wid th ratioOrdered By: Shaan Santos on 12-08-2024 Erythrocyte distribution width (RBC) [Ratio] 13.4 % 11.6-14.6 [facility] Erythrocyte distribution wid th standard deviationOrdered By: Shaan Santos on 12-08-2024 Erythrocyte distribution width (RBC) [Ratio] 42.8 fl 35.1-43.9 [facility] Glomerular filtration rate ( GFR) estimation/1.73 sq m using serum, plasma, or whole bOrdered By: Shaan Santos on 12-08-2024 GFR/1.73 sq M.predicted among non-blacks MDRD (S/P/Bld) [Vol rate/Area] 22 mL/min/{1.73_m2} Low >60 [facility] deOrdered By: Alex Sanon on 12-08-2024 Glucose [Mass/Vol] 249 mg/dL High 74-106 [facility] Hematocrit Auto (Bld) [Volum e fraction]Ordered By: Shaan Santos on 12-08-2024 Hematocrit (Bld) [Volume fraction] 39.2 % Low 40-54 [facility] Hemoglobin measurementOrdere d By: Shaan Santos on 12-08-2024 Hemoglobin (Bld) [Mass/Vol] 12.9 g/dL Low 13.0-16.5 [facility] Immature granulocytes/100 WB C Auto (Bld)Ordered By: Shaan Santos on 12-08-2024 Immature granulocytes/100 WBC (Bld) 0.900 % 0.0-0.9 [facility] MCV (mean corpuscular volume ) determinationOrdered By: Shaan Santos on 12-08-2024 MCV (RBC) [Entitic vol] 87.7 fL 80-94 [facility] Mean corpuscular hemoglobin (MCH) determinationOrdered By: Shaan Santos on 12-08-2024 MCH (RBC) [Entitic mass] 28.9 pg 27.0-32.0 [facility] Monocyte percentageOrdered B y: Shaan Santos on 12-08-2024 Monocytes/100 WBC (Bld) 12.1 % High 0-10 [facility] Neutrophil percentageOrdered By: Shaan Santos on 12-08-2024 Neutrophils/100 WBC (Bld) 74.1 % High 47-70 [facility] Platelet countOrdered By: Charlie Santos on 12-08-2024 Platelets (Bld) [#/Vol] 178 10*3/uL 150-450 [facility] Potassium measurement (mass/ volume)Ordered By: Shaan Santos on 12-08-2024 Potassium (Unsp spec) [Mass/Vol] 3.4 mmol/L 3.3-5.1 [facility] RBC Auto (Bld) [#/Vol]Ordere d By: Shaan Santos on 12-08-2024 RBC (Bld) [#/Vol] 4.47 10*6/uL Low 4.6-6.2 [facility] Serum creatinine measurement (mass/volume)Ordered By: Shaan Santos on 12-08-2024 Creatinine [Mass/Vol] 2.84 mg/dL High 0.70-1.20 [facility] Serum glucose measurement (m ass/volume)Ordered By: Shaan Santos on 12-08-2024 Glucose [Mass/Vol] 178 mg/dL High 70-99 [facility] Serum or plasma calcium francine urement (mass/volume)Ordered By: Shaan Santos on 12-08-2024 Calcium [Mass/Vol] 9.6 mg/dL 7.6-11.0 [facility] Serum or plasma urea nitroge n measurement (mass/volume)Ordered By: Shaan Santos on 12-08-2024 Urea nitrogen [Mass/Vol] 44 mg/dL High 4- [facility] Sodium levelOrdered By: Shaan Santos on 12-08-2024 Sodium [Moles/Vol] 134 mmol/L 133-145 [facility] White blood cell (WBC) count Ordered By: Shaan Santos on 12-08-2024 WBC (Bld) [#/Vol] 10.5 10*3/uL 4.4-11.0 [facility] 12 Lead EKGon 12-07-2024 12 Lead EKG Normal [facility] Absolute lymphocyte countOrd ered By: Juli German on 12-07-2024 Lymphocytes Auto (Unsp spec) [#/Vol] 0.94 10*3/uL 0.83-4.51 [facility] Absolute lymphocyte countOrd ered By: Boyd Rock on 12-07-2024 Lymphocytes Auto (Unsp spec) [#/Vol] 1.19 10*3/uL 0.83-4.51 [facility] Anion gap in Serum or Plasma Ordered By: Juli German on 12-07-2024 Anion gap [Moles/Vol] 18 mmol/L High 09-14 [facility] Anion gap in Serum or Plasma Ordered By: Boyd Rock on 12-07-2024 Anion gap [Moles/Vol] 16 mmol/L High - [facility] Automated lymphocyte count a s percentage of total leukocytesOrdered By: Juli German on 12-07-2024 Lymphocytes/100 WBC Auto (Unsp spec) 7.9 % Low [facility] Automated lymphocyte count a s percentage of total leukocytesOrdered By: Boyd Rock on 12-07-2024 Lymphocytes/100 WBC Auto (Unsp spec) 11.4 % Low - [facility] BUN/creatinine ratioOrdered By: Juli German on 12-07-2024 Urea nitrogen/Creatinine [Mass ratio] 14.5 mg/mg 10-20 [facility] BUN/creatinine ratioOrdered By: Boyd Rock on 12-07-2024 Urea nitrogen/Creatinine [Mass ratio] 15.3 mg/mg - [facility] Basic Metabolic Profile (BMP )on 12-07-2024 BUN/CRE 14.5 RATIO Normal 02-19 [facility] Comment on above: Performed By: #### L 501.4021, L100.0100, L500.2500 ####[facility] [address] [place], [address] Calcium [Mass/Vol] 9.5 mg/dL Normal 7.6-11.0 [facility] Comment on above: Performed By: #### L 501.4021, L100.0100, L500.2500 ####[facility] [address] [place], [address] Chloride [Moles/Vol] 94 mmol/L Low 98-108 [facility] Comment on above: Performed By: #### L 501.4021, L100.0100, L500.2500 ####[facility] [address] [place], [address] CO2 [Moles/Vol] 20.9 mmol/L Low 21.0-32.0 [facility] Comment on above: Performed By: #### L 501.4021, L100.0100, L500.2500 ####[facility] [address] [place], [address] Creatinine [Mass/Vol] 2.76 mg/dL High 0.70-1.20 [facility] Comment on above: Performed By: #### L 501.4021, L100.0100, L500.2500 ####[facility] [address] [place], [address] ECRCL 25.62 ml/min Low 50-250 [facility] Comment on above: Performed By: #### L 501.4021, L100.0100, L500.2500 ####[facility] [address] [place], [address] GAP 18 High 5-15 [facility] Comment on above: Performed By: #### L 501.4021, L100.0100, L500.2500 ####[facility] [address] [place], [address] GFR/1.73 sq M.predicted among non-blacks MDRD (S/P/Bld) [Vol rate/Area] 23 mL/min/{1.73_m2} Low >60 [facility] Comment on above: Result Comment: mL/m in/1.73m2 CKD-EPI Creatinine Equation (2020) Performed By: #### L 501.4021, L100.0100, L500.2500 ####[facility] [address] [place], [address] Glucose [Mass/Vol] 209 mg/dL High 70-99 [facility] Comment on above: Performed By: #### L 501.4021, L100.0100, L500.2500 ####[facility] [address] [place], [address] Potassium [Moles/Vol] 4.1 mmol/L Normal 3.3-5.1 [facility] Comment on above: Performed By: #### L 501.4021, L100.0100, L500.2500 ####[facility] [address] [place], [address] Sodium [Moles/Vol] 132 mmol/L Low 133-145 [facility] Comment on above: Performed By: #### L 501.4021, L100.0100, L500.2500 ####[facility] [address] [place], [address] Urea nitrogen [Mass/Vol] 40 mg/dL High 4-19 [facility] Comment on above: Performed By: #### L 501.4021, L100.0100, L500.2500 ####[facility] [address] [place], [address] BUN Normal 4-19 [facility] Comment on above: Result Comment: Canc elled via OM: Order cancelled - Patient discharged Performed By: #### L 500.2500, L100.0100 ####[facility] [address] [place], [address] BUN/CRE Normal 10-20 [facility] Comment on above: Result Comment: Canc elled via OM: Order cancelled - Patient discharged Performed By: #### L 500.2500, L100.0100 ####[facility] [address] [place], [address] Calcium Normal 7.6-11.0 [facility] Comment on above: Result Comment: Canc elled via OM: Order cancelled - Patient discharged Performed By: #### L 500.2500, L100.0100 ####[facility] [address] [place], [address] CL Normal 98-108 [facility] Comment on above: Result Comment: Canc elled via OM: Order cancelled - Patient discharged Performed By: #### L 500.2500, L100.0100 ####[facility] [address] [place], [address] CO2 Normal 21.0-32.0 [facility] Comment on above: Result Comment: Canc elled via OM: Order cancelled - Patient discharged Performed By: #### L 500.2500, L100.0100 ####[facility] [address] [place], [address] CREAT,SERUM Normal 0.70-1.20 [facility] Comment on above: Result Comment: Canc elled via OM: Order cancelled - Patient discharged Performed By: #### L 500.2500, L100.0100 ####[facility] [address] [place], [address] eGFR Normal >60 [facility] Comment on above: Result Comment: Canc elled via OM: Order cancelled - Patient discharged Performed By: #### L 500.2500, L100.0100 ####[facility] [address] [place], [address] GAP Normal 5-15 [facility] Comment on above: Result Comment: Canc elled via OM: Order cancelled - Patient discharged Performed By: #### L 500.2500, L100.0100 ####[facility] [address] [place], [address] GLU Normal 70-99 [facility] Comment on above: Result Comment: Canc elled via OM: Order cancelled - Patient discharged Performed By: #### L 500.2500, L100.0100 ####[facility] [address] [place], [address] Potassium Normal 3.3-5.1 [facility] Comment on above: Result Comment: Canc elled via OM: Order cancelled - Patient discharged Performed By: #### L 500.2500, L100.0100 ####[facility] [address] [place], [address] Basic Metabolic Profile (BMP) Normal 133-145 [facility] Comment on above: Result Comment: Canc elled via OM: Order cancelled - Patient discharged Performed By: #### L 500.2500, L100.0100 ####[facility] [address] [place], [address] Basophil percentageOrdered B y: Juli German on 12-07-2024 Basophils/100 WBC (Bld) 0.3 % 0-1 [facility] Basophil percentageOrdered B y: Boyd Rock on 12-07-2024 Basophils/100 WBC (Bld) 0.2 % 0-1 [facility] Bedside Glucoseon 12-07-2024 FINGERSTICK GLU 187 mg/dL High 74-106 [facility] Comment on above: Result Comment: WILDA BARROSO OF PATIENT CARE PER NURSING PROTOCOL Performed By: #### L 501.080 ####[facility] [address] [place], [address] Bilirubin, totalOrdered By: Boyd Rock on 12-07-2024 Bilirubin [Mass/Vol] 1.48 mg/dL High 0.00-1.30 [facility] CBC W/Diff, Automatedon Absolute Lymph 0.94 X10 3/uL Normal 0.83-4.51 [facility] Comment on above: Performed By: #### L 501.4021, L100.0100, L500.2500 ####[facility] [address] [place], [address] Absolute Neut 9.4 X10 3/uL High 2.0-7.7 [facility] Comment on above: Performed By: #### L 501.4021, L100.0100, L500.2500 ####[facility] [address] [place], [address] Basophils/100 WBC (Bld) 0.3 % Normal 0-1 [facility] Comment on above: Performed By: #### L 501.4021, L100.0100, L500.2500 ####[facility] [address] [place], [address] Eosinophils/100 WBC (Bld) 0.6 % Normal 0-5 [facility] Comment on above: Performed By: #### L 501.4021, L100.0100, L500.2500 ####[facility] [address] [place], [address] Erythrocyte distribution width (RBC) [Ratio] 13.4 % Normal 11.6-14.6 [facility] Comment on above: Performed By: #### L 501.4021, L100.0100, L500.2500 ####[facility] [address] [place], [address] Hematocrit (Bld) [Volume fraction] 39.1 % Low 40-54 [facility] Comment on above: Performed By: #### L 501.4021, L100.0100, L500.2500 ####[facility] [address] [place], [address] Hemoglobin (Bld) [Mass/Vol] 13.3 g/dL Normal 13.0-16.5 [facility] Comment on above: Performed By: #### L 501.4021, L100.0100, L500.2500 ####[facility] [address] [place], [address] IG% 0.700 Normal 0.0-0.9 [facility] Comment on above: Result Comment: IG% - Immature Granulocytes (promyelocytes, myelocytes andmetamyelocytes) > 1% indicates that a LEFT SHIFT is Present. Performed By: #### L 501.4021, L100.0100, L500.2500 ####[facility] [address] [place], [address] Lymphocytes/100 WBC (Bld) 7.9 % Low 19-41 [facility] Comment on above: Performed By: #### L 501.4021, L100.0100, L500.2500 ####[facility] [address] [place], [address] MCH (RBC) [Entitic mass] 29.3 pg Normal 27.0-32.0 [facility] Comment on above: Performed By: #### L 501.4021, L100.0100, L500.2500 ####[facility] [address] [place], [address] MCHC (RBC) [Mass/Vol] 34.0 g/dL Normal 32-36 [facility] Comment on above: Performed By: #### L 501.4021, L100.0100, L500.2500 ####[facility] [address] [place], [address] MCV (RBC) [Entitic vol] 86.1 fL Normal 80-94 [facility] Comment on above: Performed By: #### L 501.4021, L100.0100, L500.2500 ####[facility] [address] [place], [address] Monocytes/100 WBC (Bld) 11.5 % High 0-10 [facility] Comment on above: Performed By: #### L 501.4021, L100.0100, L500.2500 ####[facility] [address] [place], [address] Neutrophils/100 WBC (Bld) 79.0 % High 47-70 [facility] Comment on above: Performed By: #### L 501.4021, L100.0100, L500.2500 ####[facility] [address] [place], [address] Nucleated RBC (Bld) [#/Vol] 0 10*3/uL Normal 0-5 [facility] Comment on above: Performed By: #### L 501.4021, L100.0100, L500.2500 ####[facility] [address] [place], [address] Platelet mean volume (Bld) [Entitic vol] 13.0 fL High 6.2-12.0 [facility] Comment on above: Performed By: #### L 501.4021, L100.0100, L500.2500 ####[facility] [address] [place], [address] Platelets (Bld) [#/Vol] 190 10*3/uL Normal 150-450 [facility] Comment on above: Performed By: #### L 501.4021, L100.0100, L500.2500 ####[facility] [address] [place], [address] RBC (Bld) [#/Vol] 4.54 10*6/uL Low 4.6-6.2 [facility] Comment on above: Performed By: #### L 501.4021, L100.0100, L500.2500 ####[facility] [address] [place], [address] RDW SD 41.4 fl Normal 35.1-43.9 [facility] Comment on above: Performed By: #### L 501.4021, L100.0100, L500.2500 ####[facility] [address] [place], [address] WBC (Bld) [#/Vol] 11.9 10*3/uL High 4.4-11.0 [facility] Comment on above: Performed By: #### L 501.4021, L100.0100, L500.2500 ####[facility] [address] [place], [address] Absolute Neut Normal 2.0-7.7 [facility] Comment on above: Result Comment: Canc elled via OM: Order cancelled - Patient discharged Performed By: #### L 500.2500, L100.0100 ####[facility] [address] [place], [address] HCT Normal 40-54 [facility] Comment on above: Result Comment: Canc elled via OM: Order cancelled - Patient discharged Performed By: #### L 500.2500, L100.0100 ####[facility] [address] [place], [address] HGB Normal 13.0-16.5 [facility] Comment on above: Result Comment: Canc elled via OM: Order cancelled - Patient discharged Performed By: #### L 500.2500, L100.0100 ####[facility] [address] [place], [address] MCH Normal 27.0-32.0 [facility] Comment on above: Result Comment: Canc elled via OM: Order cancelled - Patient discharged Performed By: #### L 500.2500, L100.0100 ####[facility] [address] [place], [address] MCHC Normal 32-36 [facility] Comment on above: Result Comment: Canc elled via OM: Order cancelled - Patient discharged Performed By: #### L 500.2500, L100.0100 ####[facility] [address] [place], [address] MCV Normal 80-94 [facility] Comment on above: Result Comment: Canc elled via OM: Order cancelled - Patient discharged Performed By: #### L 500.2500, L100.0100 ####[facility] [address] [place], [address] NEUT% Normal 47-70 [facility] Comment on above: Result Comment: Canc elled via OM: Order cancelled - Patient discharged Performed By: #### L 500.2500, L100.0100 ####[facility] [address] [place], [address] PLT Normal 150-450 [facility] Comment on above: Result Comment: Canc elled via OM: Order cancelled - Patient discharged Performed By: #### L 500.2500, L100.0100 ####[facility] [address] [place], [address] RBC Normal 4.6-6.2 [facility] Comment on above: Result Comment: Canc elled via OM: Order cancelled - Patient discharged Performed By: #### L 500.2500, L100.0100 ####[facility] [address] [place], [address] RDW CV Normal 11.6-14.6 [facility] Comment on above: Result Comment: Canc elled via OM: Order cancelled - Patient discharged Performed By: #### L 500.2500, L100.0100 ####[facility] [address] [place], [address] RDW SD Normal 35.1-43.9 [facility] Comment on above: Result Comment: Canc elled via OM: Order cancelled - Patient discharged Performed By: #### L 500.2500, L100.0100 ####[facility] [address] [place], [address] WBC Normal 4.4-11.0 [facility] Comment on above: Result Comment: Canc elled via OM: Order cancelled - Patient discharged Performed By: #### L 500.2500, L100.0100 ####[facility] [address] [place], [address] Calculated very low density lipoprotein (VLDL) cholesterol measurementOrdered By: Boyd Rock on 12-07-2024 Calculated very low density lipoprotein (VLDL) cholesterol measurement 54 mg/dL High 5-40 [facility] Carbon dioxide, total [Moles /volume] in Central venous bloodOrdered By: Juli German on 12-07-2024 CO2 [Moles/Vol] 20.9 mmol/L Low 21.0-32.0 [facility] Carbon dioxide, total [Moles /volume] in Central venous bloodOrdered By: Boyd Rock on 12-07-2024 CO2 [Moles/Vol] 23.3 mmol/L 21.0-32.0 [facility] Chest PA and Lateralon 12-07 Chest PA and Lateral Normal [facility] Chloride assayOrdered By: Miri German on 12-07-2024 Chloride [Moles/Vol] 94 mmol/L Low 98-108 [facility] Chloride assayOrdered By: Susanna Rock on 12-07-2024 Chloride [Moles/Vol] 96 mmol/L Low 98-108 [facility] D-Dimer Quantitative (DVT/PE )on 12-07-2024 D-DIMER QUANT 1.61 FEU/ug/m Invalid Interpretation Code 0.27-0.49 [facility] Comment on above: Result Comment: D-Di ajit ELEVATED (>0.49): Additional studies and clinicalassessments are indicated to conclude diagnosis of:Deep Vein Thrombosis (DVT) or Pulmonary Embolism (PE)CRITICAL VALUE CALLED TO MARIA DEL ROSARIO JOHNSON (ER)12/07/24 1442 Michael Chrery.RESULTS READ BACK BY SAME. Performed By: #### L 300.8000 ####[facility] [address] [place], [place], [id number] Emergency Department Summary on 12-07-2024 Emergency Department Summary Normal [facility] Eosinophil percentageOrdered By: Juli German on 12-07-2024 Eosinophils/100 WBC (Bld) 0.6 % 0-5 [facility] Eosinophil percentageOrdered By: Boyd Rock on 12-07-2024 Eosinophils/100 WBC (Bld) 1.3 % 0-5 [facility] Erythrocyte distribution wid th ratioOrdered By: Juli German on 12-07-2024 Erythrocyte distribution width (RBC) [Ratio] 13.4 % 11.6-14.6 [facility] Erythrocyte distribution wid th ratioOrdered By: Boyd Rock on 12-07-2024 Erythrocyte distribution width (RBC) [Ratio] 13.6 % 11.6-14.6 [facility] Erythrocyte distribution wid th standard deviationOrdered By: Juli German on 12-07-2024 Erythrocyte distribution width (RBC) [Ratio] 41.4 fl 35.1-43.9 [facility] Erythrocyte distribution wid th standard deviationOrdered By: Boyd Rock on 12-07-2024 Erythrocyte distribution width (RBC) [Ratio] 43.8 fl 35.1-43.9 [facility] Glomerular filtration rate ( GFR) estimation/1.73 sq m using serum, plasma, or whole bOrdered By: Juli German on 12-07-2024 GFR/1.73 sq M.predicted among non-blacks MDRD (S/P/Bld) [Vol rate/Area] 23 mL/min/{1.73_m2} Low >60 [facility] Glomerular filtration rate ( GFR) estimation/1.73 sq m using serum, plasma, or whole bOrdered By: Boyd Rock on 12-07-2024 GFR/1.73 sq M.predicted among non-blacks MDRD (S/P/Bld) [Vol rate/Area] 25 mL/min/{1.73_m2} Low >60 [facility] H AND P Exam - Hospitaliston 12-07-2024 H&P Exam - Hospitalist Normal [facility] Hematocrit Auto (Bld) [Volum e fraction]Ordered By: Juli German on 12-07-2024 Hematocrit (Bld) [Volume fraction] 39.1 % Low 40-54 [facility] Hematocrit Auto (Bld) [Volum e fraction]Ordered By: Boyd Rock on 12-07-2024 Hematocrit (Bld) [Volume fraction] 37.8 % Low 40-54 [facility] Hemoglobin measurementOrdere d By: Juli German on 12-07-2024 Hemoglobin (Bld) [Mass/Vol] 13.3 g/dL 13.0-16.5 [facility] Hemoglobin measurementOrdere d By: Boyd Rock on 12-07-2024 Hemoglobin (Bld) [Mass/Vol] 12.4 g/dL Low 13.0-16.5 [facility] Immature granulocytes/100 WB C Auto (Bld)Ordered By: Juli German on 12-07-2024 Immature granulocytes/100 WBC (Bld) 0.700 % 0.0-0.9 [facility] Immature granulocytes/100 WB C Auto (Bld)Ordered By: Boyd Rock on 12-07-2024 Immature granulocytes/100 WBC (Bld) 0.600 % 0.0-0.9 [facility] L501.4021on 12-07-2024 Trop T High Sen 7122 ng/L Invalid Interpretation Code <=22 [facility] Comment on above: Result Comment: Crit ical Result(s) Called at 1153: by:?? MONICA RODRIGUEZ. Results read back by same. Performed By: #### L 501.4021, L100.0100, L500.2500 ####[facility] [address] [place], [place], [id number] LDL calc ser/plasOrdered By: Boyd Rock on 12-07-2024 Cholesterol in LDL [Mass/Vol] 65 mg/dL [facility] Lung Scan Vent/Perfon 2024 Lung Scan Vent/Perf Normal [facility] MCV (mean corpuscular volume ) determinationOrdered By: Juli German on 12-07-2024 MCV (RBC) [Entitic vol] 86.1 fL 80-94 [facility] MCV (mean corpuscular volume ) determinationOrdered By: Boyd Rock on 12-07-2024 MCV (RBC) [Entitic vol] 87.9 fL 80-94 [facility] Magnesiumon 12-07-2024 Magnesium [Mass/Vol] 2.4 mg/dL High 1.5-2.2 [facility] Comment on above: Performed By: #### L 501.5200 ####[facility] [address] [place], [place], [address] Magnesium measurement (mass/ volume)Ordered By: Juli German on 12-07-2024 Magnesium (Unsp spec) [Mass/Vol] 2.4 mg/dL High 1.5-2.2 [facility] Mean corpuscular hemoglobin (MCH) determinationOrdered By: Juli German on 12-07-2024 MCH (RBC) [Entitic mass] 29.3 pg 27.0-32.0 [facility] Mean corpuscular hemoglobin (MCH) determinationOrdered By: Boyd Rock on 12-07-2024 MCH (RBC) [Entitic mass] 28.8 pg 27.0-32.0 [facility] Monocyte percentageOrdered B y: Juli German on 12-07-2024 Monocytes/100 WBC (Bld) 11.5 % High 0-10 [facility] Monocyte percentageOrdered B y: Boyd Rock on 12-07-2024 Monocytes/100 WBC (Bld) 11.7 % High 0-10 [facility] Natriuretic peptide.B prohor efrem N-Terminal [Mass/volume] in Serum or PlasmaOrdered By: Tor Irizarry on 12-07-2024 Natriuretic peptide.B prohormone N-Terminal [Mass/Vol] 2037 pg/mL High <1800 [facility] Neutrophil percentageOrdered By: Juli German on 12-07-2024 Neutrophils/100 WBC (Bld) 79.0 % High 47-70 [facility] Neutrophil percentageOrdered By: Boyd Rock on 12-07-2024 Neutrophils/100 WBC (Bld) 74.8 % High 47-70 [facility] No Panel InformationOrdered By: Boyd Rock on 12-07-2024 32 U/L <38 [facility] Platelet countOrdered By: Miri German on 12-07-2024 Platelets (Bld) [#/Vol] 190 10*3/uL 150-450 [facility] Platelet countOrdered By: Susanna garrytesha Rock on 12-07-2024 Platelets (Bld) [#/Vol] 169 10*3/uL 150-450 [facility] Potassium measurement (mass/ volume)Ordered By: Juli German on 12-07-2024 Potassium (Unsp spec) [Mass/Vol] 4.1 mmol/L 3.3-5.1 [facility] Potassium measurement (mass/ volume)Ordered By: Boyd Rock on 12-07-2024 Potassium (Unsp spec) [Mass/Vol] 3.5 mmol/L 3.3-5.1 [facility] Pro- Brain NATRIURETIC PEPTI Sharon 12-07-2024 Natriuretic peptide B (Bld) [Mass/Vol] 2037 pg/mL High <=1800 [facility] Comment on above: Result Comment: Hear t Failure Unlikely: < 300 pg/mLHeart Failure Likely< 50 Years: > 450 pg/mL50-75 Years: > 900 pg/mL>75 Years: > 1800 pg/mL Performed By: #### L 503.2786 ####[facility] [address] [place], [address] RBC Auto (Bld) [#/Vol]Ordere d By: Juli German on 12-07-2024 RBC (Bld) [#/Vol] 4.54 10*6/uL Low 4.6-6.2 [facility] RBC Auto (Bld) [#/Vol]Ordere d By: Boyd Rock on 12-07-2024 RBC (Bld) [#/Vol] 4.30 10*6/uL Low 4.6-6.2 [facility] Serum creatinine measurement (mass/volume)Ordered By: Juli German on 12-07-2024 Creatinine [Mass/Vol] 2.76 mg/dL High 0.70-1.20 [facility] Serum creatinine measurement (mass/volume)Ordered By: Boyd Rock on 12-07-2024 Creatinine [Mass/Vol] 2.56 mg/dL High 0.70-1.20 [facility] Serum globulin measurementOr dered By: Boyd Rock on 12-07-2024 Globulin (S) [Mass/Vol] 3.5 g/dL 2.2-4.2 [facility] Serum glucose measurement (m ass/volume)Ordered By: Juli German on 12-07-2024 Glucose [Mass/Vol] 209 mg/dL High 70-99 [facility] Serum glucose measurement (m ass/volume)Ordered By: Boyd Rock on 12-07-2024 Glucose [Mass/Vol] 156 mg/dL High 70-99 [facility] Serum or plasma alanine guerrero otransferase (ALT) measurementOrdered By: Boyd Rock on 12-07-2024 ALT [Catalytic activity/Vol] 28 U/L <47 [facility] Serum or plasma albumin francine urement (mass/volume)Ordered By: Boyd Rock on 12-07-2024 Albumin [Mass/Vol] 4.1 g/dL 3.4-4.8 [facility] Serum or plasma albumin/glob ulin mass ratioOrdered By: Boyd Rock on 12-07-2024 Albumin/Globulin [Mass ratio] 1.2 {ratio} 0.9-2.4 [facility] Serum or plasma alkaline bell sphatase measurementOrdered By: Boyd Rock on 12-07-2024 ALP [Catalytic activity/Vol] 122 U/L 40-129 [facility] Serum or plasma calcium francine urement (mass/volume)Ordered By: Juli German on 12-07-2024 Calcium [Mass/Vol] 9.5 mg/dL 7.6-11.0 [facility] Serum or plasma calcium francine urement (mass/volume)Ordered By: Boyd Rock on 12-07-2024 Calcium [Mass/Vol] 9.4 mg/dL 7.6-11.0 [facility] Serum or plasma cholesterol in HDL measurement (mass/volume)Ordered By: Boyd Rock on 12-07-2024 Cholesterol in HDL [Mass/Vol] 36 mg/dL Low >40 [facility] Serum or plasma cholesterol measurement (mass/volume)Ordered By: Boyd Rock on 12-07-2024 Cholesterol [Mass/Vol] 154 mg/dL <[address] [facility] Serum or plasma urea nitroge n measurement (mass/volume)Ordered By: Juli German on 12-07-2024 Urea nitrogen [Mass/Vol] 40 mg/dL High 4-19 [facility] Serum or plasma urea nitroge n measurement (mass/volume)Ordered By: Boyd Rock on 12-07-2024 Urea nitrogen [Mass/Vol] 39 mg/dL High 4-19 [facility] Sodium levelOrdered By: Juli German on 12-07-2024 Sodium [Moles/Vol] 132 mmol/L Low 133-145 [facility] Sodium levelOrdered By: Lupe Rock on 12-07-2024 Sodium [Moles/Vol] 135 mmol/L 133-145 [facility] TSH DL <= 0.005 mIU/L QnOrde red By: Boyd Rock on 12-07-2024 TSH Qn 9.200 uIU/mL High 0.300-4.20 0 [facility] Total proteinOrdered By: Anastacio nicole Shweta on 12-07-2024 Protein [Mass/Vol] 7.5 g/dL 5.9-8.4 [facility] Troponin T HS 2 HRon 025 Trop T High Sen 6442 ng/L Invalid Interpretation Code <=22 [facility] Comment on above: Result Comment: Crit ical Result(s) Called at 1336: by: MONICA PERALTA.??Results read back by same. Performed By: #### L 499.0042 ####[facility] [address] [place], [place], [id number]) Troponin T HS 4 HRon 025 Trop T High Sen 6556 ng/L Invalid Interpretation Code <=22 [facility] Comment on above: Result Comment: Crit ical Result(s) Called at: 1740 by:??MOISE BECKFORD Results read back by same. Performed By: #### L 499.0043 ####[facility] [address] [place], [place], [address] Troponin T.cardiac [Mass/vol ume] in Serum or Plasma by High sensitivity methodOrdered By: Juli German on 12-07-2024 Troponin T.cardiac High sensitivity method [Mass/Vol] 6556 ng/L High <22 [facility] Troponin T.cardiac High sensitivity method [Mass/Vol] 6442 ng/L High <22 [facility] Troponin T.cardiac High sensitivity method [Mass/Vol] 7122 ng/L High <22 [facility] White blood cell (WBC) count Ordered By: Juli German on 12-07-2024 WBC (Bld) [#/Vol] 11.9 10*3/uL High 4.4-11.0 [facility] White blood cell (WBC) count Ordered By: Boyd Rock on 12-07-2024 WBC (Bld) [#/Vol] 10.5 10*3/uL 4.4-11.0 [facility] 12 Lead EKGon 12-06-2024 12 Lead EKG Normal [facility] Absolute lymphocyte countOrd ered By: Alex Sanon on 12-06-2024 Lymphocytes Auto (Unsp spec) [#/Vol] 1.09 10*3/uL 0.83-4.51 [facility] Anion gap in Serum or Plasma Ordered By: Marcin Araujo on 12-06-2024 Anion gap [Moles/Vol] 17 mmol/L High 5-15 [facility] Automated lymphocyte count a s percentage of total leukocytesOrdered By: Alex Sanon on 12-06-2024 Lymphocytes/100 WBC Auto (Unsp spec) 11.6 % Low 19-41 [facility] BUN/creatinine ratioOrdered By: Marcin Araujo on 12-06-2024 Urea nitrogen/Creatinine [Mass ratio] 16.1 mg/mg 10-20 [facility] Basic Metabolic Profile (BMP )on 12-06-2024 BUN/CRE 16.1 RATIO Normal - [facility] Comment on above: Performed By: #### L 500.2500 ####[facility] [address] [place], [address] Calcium [Mass/Vol] 9.2 mg/dL Normal 7.6-11.0 [facility] Comment on above: Performed By: #### L 500.2500 ####[facility] [address] [place], [address] Chloride [Moles/Vol] 96 mmol/L Low 98-108 [facility] Comment on above: Performed By: #### L 500.2500 ####[facility] [address] [place], [address] CO2 [Moles/Vol] 20.6 mmol/L Low 21.0-32.0 [facility] Comment on above: Performed By: #### L 500.2500 ####[facility] [address] [place], [address] Creatinine [Mass/Vol] 2.46 mg/dL High 0.70-1.20 [facility] Comment on above: Performed By: #### L 500.2500 ####[facility] [address] [place], [address] ECRCL 28.56 ml/min Low 50-250 [facility] Comment on above: Performed By: #### L 500.2500 ####[facility] [address] [place], [address] GAP 17 High 5-15 [facility] Comment on above: Performed By: #### L 500.2500 ####[facility] [address] [place], [address] GFR/1.73 sq M.predicted among non-blacks MDRD (S/P/Bld) [Vol rate/Area] 26 mL/min/{1.73_m2} Low >60 [facility] Comment on above: Result Comment: mL/m in/1.73m2 CKD-EPI Creatinine Equation (2020) Performed By: #### L 500.2500 ####[facility] [address] [place], [address] Glucose [Mass/Vol] 186 mg/dL High 70-99 [facility] Comment on above: Performed By: #### L 500.2500 ####[facility] [address] [place], [address] Potassium [Moles/Vol] 4.1 mmol/L Normal 3.3-5.1 [facility] Comment on above: Performed By: #### L 500.2500 ####[facility] [address] [place], [address] Sodium [Moles/Vol] 133 mmol/L Normal 133-145 [facility] Comment on above: Performed By: #### L 500.2500 ####[facility] [address] [place], [address] Urea nitrogen [Mass/Vol] 40 mg/dL High 4-19 [facility] Comment on above: Performed By: #### L 500.2500 ####[facility] [address] [place], [address] BUN/CRE 17.0 RATIO Normal 10-20 [facility] Comment on above: Performed By: #### L 500.2500, L100.0100, L501.2300, L501.5200 ####[facility] [address] [place], [address] Calcium [Mass/Vol] 9.0 mg/dL Normal 7.6-11.0 [facility] Comment on above: Performed By: #### L 500.2500, L100.0100, L501.2300, L501.5200 ####[facility] [address] [place], [address] Chloride [Moles/Vol] 97 mmol/L Low 98-108 [facility] Comment on above: Performed By: #### L 500.2500, L100.0100, L501.2300, L501.5200 ####[facility] [address] [place], [address] CO2 [Moles/Vol] 21.9 mmol/L Normal 21.0-32.0 [facility] Comment on above: Performed By: #### L 500.2500, L100.0100, L501.2300, L501.5200 ####[facility] [address] [place], [address] Creatinine [Mass/Vol] 2.53 mg/dL High 0.70-1.20 [facility] Comment on above: Performed By: #### L 500.2500, L100.0100, L501.2300, L501.5200 ####[facility] [address] [place], [address] ECRCL 1.34 ml/min Invalid Interpretation Code 50-250 [facility] Comment on above: Performed By: #### L 500.2500, L100.0100, L501.2300, L501.5200 ####[facility] [address] [place], [address] GAP 17 High 5-15 [facility] Comment on above: Performed By: #### L 500.2500, L100.0100, L501.2300, L501.5200 ####[facility] [address] [place], [address] GFR/1.73 sq M.predicted among non-blacks MDRD (S/P/Bld) [Vol rate/Area] 25 mL/min/{1.73_m2} Low >60 [facility] Comment on above: Result Comment: mL/m in/1.73m2 CKD-EPI Creatinine Equation (2020) Performed By: #### L 500.2500, L100.0100, L501.2300, L501.5200 ####[facility] [address] [place], [address] Glucose [Mass/Vol] 161 mg/dL High 70-99 [facility] Comment on above: Performed By: #### L 500.2500, L100.0100, L501.2300, L501.5200 ####[facility] [address] [place], [address] Potassium [Moles/Vol] 3.5 mmol/L Normal 3.3-5.1 [facility] Comment on above: Performed By: #### L 500.2500, L100.0100, L501.2300, L501.5200 ####[facility] [address] [place], [address] Sodium [Moles/Vol] 135 mmol/L Normal 133-145 [facility] Comment on above: Performed By: #### L 500.2500, L100.0100, L501.2300, L501.5200 ####[facility] [address] [place], [address] Urea nitrogen [Mass/Vol] 43 mg/dL High 4-19 [facility] Comment on above: Performed By: #### L 500.2500, L100.0100, L501.2300, L501.5200 ####[facility] [address] [place], [address] Basophil percentageOrdered B y: Alex Sanon on 12-06-2024 Basophils/100 WBC (Bld) 0.2 % 0-1 [facility] Bedside Glucoseon 12-06-2024 FINGERSTICK GLU 197 mg/dL High 74-106 [facility] Comment on above: Result Comment: WILDA GEMENT OF PATIENT CARE PER NURSING PROTOCOL Performed By: #### L 501.080 ####[facility] [address] [place], [address] FINGERSTICK GLU 165 mg/dL High 74-106 [facility] Comment on above: Result Comment: WILDA GEMENT OF PATIENT CARE PER NURSING PROTOCOL Performed By: #### L 501.080 ####[facility] [address] [place], [address] CBC W/Diff, Automatedon - Absolute Lymph 1.09 X10 3/uL Normal 0.83-4.51 [facility] Comment on above: Performed By: #### L 500.2500, L100.0100, L501.2300, L501.5200 ####[facility] [address] [place], [address] Absolute Neut 6.8 X10 3/uL Normal 2.0-7.7 [facility] Comment on above: Performed By: #### L 500.2500, L100.0100, L501.2300, L501.5200 ####[facility] [address] [place], [address] Basophils/100 WBC (Bld) 0.2 % Normal 0-1 [facility] Comment on above: Performed By: #### L 500.2500, L100.0100, L501.2300, L501.5200 ####[facility] [address] [place], [address] Eosinophils/100 WBC (Bld) 2.0 % Normal 0-5 [facility] Comment on above: Performed By: #### L 500.2500, L100.0100, L501.2300, L501.5200 ####[facility] [address] [place], [address] Erythrocyte distribution width (RBC) [Ratio] 13.6 % Normal 11.6-14.6 [facility] Comment on above: Performed By: #### L 500.2500, L100.0100, L501.2300, L501.5200 ####[facility] [address] [place], [address] Hematocrit (Bld) [Volume fraction] 35.0 % Low 40-54 [facility] Comment on above: Performed By: #### L 500.2500, L100.0100, L501.2300, L501.5200 ####[facility] [address] [place], [address] Hemoglobin (Bld) [Mass/Vol] 11.6 g/dL Low 13.0-16.5 [facility] Comment on above: Performed By: #### L 500.2500, L100.0100, L501.2300, L501.5200 ####[facility] [address] [place], [address] IG% 0.600 Normal 0.0-0.9 [facility] Comment on above: Result Comment: IG% - Immature Granulocytes (promyelocytes, myelocytes andmetamyelocytes) > 1% indicates that a LEFT SHIFT is Present. Performed By: #### L 500.2500, L100.0100, L501.2300, L501.5200 ####[facility] [address] [place], [address] Lymphocytes/100 WBC (Bld) 11.6 % Low 19-41 [facility] Comment on above: Performed By: #### L 500.2500, L100.0100, L501.2300, L501.5200 ####[facility] [address] [place], [address] MCH (RBC) [Entitic mass] 29.1 pg Normal 27.0-32.0 [facility] Comment on above: Performed By: #### L 500.2500, L100.0100, L501.2300, L501.5200 ####[facility] [address] [place], [address] MCHC (RBC) [Mass/Vol] 33.1 g/dL Normal 32-36 [facility] Comment on above: Performed By: #### L 500.2500, L100.0100, L501.2300, L501.5200 ####[facility] [address] [place], [address] MCV (RBC) [Entitic vol] 87.9 fL Normal 80-94 [facility] Comment on above: Performed By: #### L 500.2500, L100.0100, L501.2300, L501.5200 ####[facility] [address] [place], [address] Monocytes/100 WBC (Bld) 12.9 % High 0-10 [facility] Comment on above: Performed By: #### L 500.2500, L100.0100, L501.2300, L501.5200 ####[facility] [address] [place], [address] Neutrophils/100 WBC (Bld) 72.7 % High 47-70 [facility] Comment on above: Performed By: #### L 500.2500, L100.0100, L501.2300, L501.5200 ####[facility] [address] [place], [address] Nucleated RBC (Bld) [#/Vol] 0 10*3/uL Normal 0-5 [facility] Comment on above: Performed By: #### L 500.2500, L100.0100, L501.2300, L501.5200 ####[facility] [address] [place], [address] Platelet mean volume (Bld) [Entitic vol] 12.9 fL High 6.2-12.0 [facility] Comment on above: Performed By: #### L 500.2500, L100.0100, L501.2300, L501.5200 ####[facility] [address] [place], [address] Platelets (Bld) [#/Vol] 140 10*3/uL Low 150-450 [facility] Comment on above: Performed By: #### L 500.2500, L100.0100, L501.2300, L501.5200 ####[facility] [address] [place], [address] RBC (Bld) [#/Vol] 3.98 10*6/uL Low 4.6-6.2 [facility] Comment on above: Performed By: #### L 500.2500, L100.0100, L501.2300, L501.5200 ####[facility] [address] [place], [address] RDW SD 44.0 fl High 35.1-43.9 [facility] Comment on above: Performed By: #### L 500.2500, L100.0100, L501.2300, L501.5200 ####[facility] [address] [place], [address] WBC (Bld) [#/Vol] 9.4 10*3/uL Normal 4.4-11.0 [facility] Comment on above: Performed By: #### L 500.2500, L100.0100, L501.2300, L501.5200 ####[facility] [address] [place], [address] Carbon dioxide, total [Moles /volume] in Central venous bloodOrdered By: Marcin Araujo on 12-06-2024 CO2 [Moles/Vol] 20.6 mmol/L Low 21.0-32.0 [facility] Chloride assayOrdered By: Russell Araujo on 12-06-2024 Chloride [Moles/Vol] 96 mmol/L Low 98-108 [facility] Electrocardiogram reportOrde red By: Marcin Araujo on 12-06-2024 EKG study [facility] Work Phone: [phone] EKG study [facility] Work Phone: [phone] Eosinophil percentageOrdered By: Alex Sanon on 12-06-2024 Eosinophils/100 WBC (Bld) 2.0 % 0-5 [facility] Erythrocyte distribution wid th ratioOrdered By: Alex Sanon on 12-06-2024 Erythrocyte distribution width (RBC) [Ratio] 13.6 % 11.6-14.6 [facility] Erythrocyte distribution wid th standard deviationOrdered By: Alex Sanon on 12-06-2024 Erythrocyte distribution width (RBC) [Ratio] 44.0 fl High 35.1-43.9 [facility] Glomerular filtration rate ( GFR) estimation/1.73 sq m using serum, plasma, or whole bOrdered By: Marcin Araujo on 12-06-2024 GFR/1.73 sq M.predicted among non-blacks MDRD (S/P/Bld) [Vol rate/Area] 26 mL/min/{1.73_m2} Low >60 [facility] Glucose measurement at bedsi deOrdered By: Alex Sanon on 12-06-2024 Glucose [Mass/Vol] 197 mg/dL High 74-106 [facility] Hematocrit Auto (Bld) [Volum e fraction]Ordered By: Alex Sanon on 12-06-2024 Hematocrit (Bld) [Volume fraction] 35.0 % Low 40-54 [facility] Hemoglobin measurementOrdere d By: Alex Sanon on 12-06-2024 Hemoglobin (Bld) [Mass/Vol] 11.6 g/dL Low 13.0-16.5 [facility] Immature granulocytes/100 WB C Auto (Bld)Ordered By: Alex Sanon on 12-06-2024 Immature granulocytes/100 WBC (Bld) 0.600 % 0.0-0.9 [facility] MCV (mean corpuscular volume ) determinationOrdered By: Alex Sanon on 12-06-2024 MCV (RBC) [Entitic vol] 87.9 fL 80-94 [facility] Magnesiumon 12-06-2024 Magnesium [Mass/Vol] 2.4 mg/dL High 1.5-2.2 [facility] Comment on above: Performed By: #### L 500.2500, L100.0100, L501.2300, L501.5200 ####[facility] [address] [place], [address] Magnesium measurement (mass/ volume)Ordered By: Alex Sanon on 12-06-2024 Magnesium (Unsp spec) [Mass/Vol] 2.4 mg/dL High 1.5-2.2 [facility] Mean corpuscular hemoglobin (MCH) determinationOrdered By: Alex Sanon on 12-06-2024 MCH (RBC) [Entitic mass] 29.1 pg 27.0-32.0 [facility] Monocyte percentageOrdered B y: Alex Sanon on 12-06-2024 Monocytes/100 WBC (Bld) 12.9 % High 0-10 [facility] Neutrophil percentageOrdered By: Alex Sanon on 12-06-2024 Neutrophils/100 WBC (Bld) 72.7 % High 47-70 [facility] Phosphoruson 12-06-2024 Phosphate [Mass/Vol] 2.9 mg/dL Normal 2.7-4.5 [facility] Comment on above: Performed By: #### L 500.2500, L100.0100, L501.2300, L501.5200 ####[facility] [address] [place], [address] Platelet countOrdered By: Danis Sanon on 12-06-2024 Platelets (Bld) [#/Vol] 140 10*3/uL Low 150-450 [facility] Potassium measurement (mass/ volume)Ordered By: Marcin Araujo on 12-06-2024 Potassium (Unsp spec) [Mass/Vol] 4.1 mmol/L 3.3-5.1 [facility] RBC Auto (Bld) [#/Vol]Ordere d By: Alex Sanon on 12-06-2024 RBC (Bld) [#/Vol] 3.98 10*6/uL Low 4.6-6.2 [facility] Serum creatinine measurement (mass/volume)Ordered By: Marcin Araujo on 12-06-2024 Creatinine [Mass/Vol] 2.46 mg/dL High 0.70-1.20 [facility] Serum glucose measurement (m ass/volume)Ordered By: Marcin Araujo on 12-06-2024 Glucose [Mass/Vol] 186 mg/dL High 70-99 [facility] Serum or plasma calcium francine urement (mass/volume)Ordered By: Marcin Araujo on 12-06-2024 Calcium [Mass/Vol] 9.2 mg/dL 7.6-11.0 [facility] Serum or plasma urea nitroge n measurement (mass/volume)Ordered By: Marcin Araujo on 12-06-2024 Urea nitrogen [Mass/Vol] 40 mg/dL High 4-19 [facility] Sodium levelOrdered By: Madeline Araujo on 12-06-2024 Sodium [Moles/Vol] 133 mmol/L 133-145 [facility] White blood cell (WBC) count Ordered By: Alex Sanon on 12-06-2024 WBC (Bld) [#/Vol] 9.4 10*3/uL 4.4-11.0 [facility] Anion gap in Serum or Plasma Ordered By: Abraahm Ridley on 12-05-2024 Anion gap [Moles/Vol] 19 mmol/L High 5-15 [facility] BUN/creatinine ratioOrdered By: Abraham Ridley on 12-05-2024 Urea nitrogen/Creatinine [Mass ratio] 18.2 mg/mg - [facility] Basic Metabolic Profile (BMP )on 12-05-2024 BUN/CRE 18.2 RATIO Normal - [facility] Comment on above: Performed By: #### L 500.2500 ####[facility] [address] [place], [address] Calcium [Mass/Vol] 9.1 mg/dL Normal 7.6-11.0 [facility] Comment on above: Performed By: #### L 500.2500 ####[facility] [address] [place], [address] Chloride [Moles/Vol] 96 mmol/L Low 98-108 [facility] Comment on above: Performed By: #### L 500.2500 ####[facility] [address] [place], [address] CO2 [Moles/Vol] 22.4 mmol/L Normal 21.0-32.0 [facility] Comment on above: Performed By: #### L 500.2500 ####[facility] [address] [place], [address] Creatinine [Mass/Vol] 2.57 mg/dL High 0.70-1.20 [facility] Comment on above: Performed By: #### L 500.2500 ####[facility] [address] [place], [address] ECRCL 27.41 ml/min Low 50-250 [facility] Comment on above: Performed By: #### L 500.2500 ####[facility] [address] [place], [address] GAP 19 High -15 [facility] Comment on above: Performed By: #### L 500.2500 ####[facility] [address] [place], [address] GFR/1.73 sq M.predicted among non-blacks MDRD (S/P/Bld) [Vol rate/Area] 25 mL/min/{1.73_m2} Low >60 [facility] Comment on above: Result Comment: mL/m in/1.73m2 CKD-EPI Creatinine Equation (2020) Performed By: #### L 500.2500 ####[facility] [address] [place], [address] Glucose [Mass/Vol] 155 mg/dL High 70-99 [facility] Comment on above: Performed By: #### L 500.2500 ####[facility] [address] [place], [address] Potassium [Moles/Vol] 3.2 mmol/L Low 3.3-5.1 [facility] Comment on above: Performed By: #### L 500.2500 ####[facility] [address] [place], [address] Sodium [Moles/Vol] 137 mmol/L Normal 133-145 [facility] Comment on above: Performed By: #### L 500.2500 ####[facility] [address] [place], [address] Urea nitrogen [Mass/Vol] 47 mg/dL High 4-19 [facility] Comment on above: Performed By: #### L 500.2500 ####[facility] [address] [place], [address] Bedside Glucoseon 12-05-2024 FINGERSTICK GLU 196 mg/dL High 74-106 [facility] Comment on above: Result Comment: WILDA BARROSO OF PATIENT CARE PER NURSING PROTOCOL Performed By: #### L 501.080 ####[facility] [address] [place], [address] FINGERSTICK GLU 183 mg/dL High 74-106 [facility] Comment on above: Result Comment: WILDA GEMENT OF PATIENT CARE PER NURSING PROTOCOL Performed By: #### L 501.080 ####[facility] [address] [place], [address] FINGERSTICK GLU 194 mg/dL High 74-106 [facility] Comment on above: Result Comment: WILDA GEMENT OF PATIENT CARE PER NURSING PROTOCOL Performed By: #### L 501.080 ####[facility] [address] [place], [address] FINGERSTICK GLU 190 mg/dL High -106 [facility] Comment on above: Result Comment: WILDA GEMENT OF PATIENT CARE PER NURSING PROTOCOL Performed By: #### L 501.080 ####[facility] [address] [place], [address] Carbon dioxide, total [Moles /volume] in Central venous bloodOrdered By: Abraham Ridley on 12-05-2024 CO2 [Moles/Vol] 22.4 mmol/L 21.0-32.0 [facility] Chloride assayOrdered By: Jaylen Ridley on 12-05-2024 Chloride [Moles/Vol] 96 mmol/L Low 98-108 [facility] Glomerular filtration rate ( GFR) estimation/1.73 sq m using serum, plasma, or whole bOrdered By: Abraham Ridley on 12-05-2024 GFR/1.73 sq M.predicted among non-blacks MDRD (S/P/Bld) [Vol rate/Area] 25 mL/min/{1.73_m2} Low >60 [facility] deOrdered By: Abraham Ridley on 12-05-2024 Glucose [Mass/Vol] 190 mg/dL High 74-106 [facility] Potassium measurement (mass/ volume)Ordered By: Abraham Ridley on 12-05-2024 Potassium (Unsp spec) [Mass/Vol] 3.2 mmol/L Low 3.3-5.1 [facility] Serum creatinine measurement (mass/volume)Ordered By: Abraham Ridley on 12-05-2024 Creatinine [Mass/Vol] 2.57 mg/dL High 0.70-1.20 [facility] Serum glucose measurement (m ass/volume)Ordered By: Abraham Ridley on 12-05-2024 Glucose [Mass/Vol] 155 mg/dL High 70-99 [facility] Serum or plasma calcium francine urement (mass/volume)Ordered By: Abraham Ridley on 12-05-2024 Calcium [Mass/Vol] 9.1 mg/dL 7.6-11.0 [facility] Serum or plasma urea nitroge n measurement (mass/volume)Ordered By: Abraham Ridley on 12-05-2024 Urea nitrogen [Mass/Vol] 47 mg/dL High 4-19 [facility] Sodium levelOrdered By: Isael Ridley on 12-05-2024 Sodium [Moles/Vol] 137 mmol/L 133-145 [facility] 12 Lead EKGon 12-04-2024 12 Lead EKG Normal [facility] Absolute lymphocyte countOrd ered By: Ramonita Herron on 12-04-2024 Lymphocytes Auto (Unsp spec) [#/Vol] 1.07 10*3/uL 0.83-4.51 [facility] Automated lymphocyte count a s percentage of total leukocytesOrdered By: Ramonita Herron on 12-04-2024 Lymphocytes/100 WBC Auto (Unsp spec) 11.1 % Low 19-41 [facility] Basic Metabolic Profile (BMP )on 12-04-2024 BUN/CRE 19.4 RATIO Normal 10-20 [facility] Comment on above: Performed By: #### L 500.2500, L100.0100 ####[facility] [address] [place], [address] Calcium [Mass/Vol] 9.2 mg/dL Normal 7.6-11.0 [facility] Comment on above: Performed By: #### L 500.2500, L100.0100 ####[facility] [address] [place], [address] Chloride [Moles/Vol] 96 mmol/L Low 98-108 [facility] Comment on above: Performed By: #### L 500.2500, L100.0100 ####[facility] [address] [place], [address] CO2 [Moles/Vol] 21.4 mmol/L Normal 21.0-32.0 [facility] Comment on above: Performed By: #### L 500.2500, L100.0100 ####[facility] [address] [place], [address] Creatinine [Mass/Vol] 2.53 mg/dL High 0.70-1.20 [facility] Comment on above: Performed By: #### L 500.2500, L100.0100 ####[facility] [address] [place], [address] ECRCL 28.47 ml/min Low 50-250 [facility] Comment on above: Performed By: #### L 500.2500, L100.0100 ####[facility] [address] [place], [address] GAP 19 High 5-15 [facility] Comment on above: Performed By: #### L 500.2500, L100.0100 ####[facility] [address] [place], [address] GFR/1.73 sq M.predicted among non-blacks MDRD (S/P/Bld) [Vol rate/Area] 25 mL/min/{1.73_m2} Low >60 [facility] Comment on above: Result Comment: mL/m in/1.73m2 CKD-EPI Creatinine Equation (2020) Performed By: #### L 500.2500, L100.0100 ####[facility] [address] [place], [address] Glucose [Mass/Vol] 140 mg/dL High 70-99 [facility] Comment on above: Performed By: #### L 500.2500, L100.0100 ####[facility] [address] [place], [address] Potassium [Moles/Vol] 3.1 mmol/L Low 3.3-5.1 [facility] Comment on above: Performed By: #### L 500.2500, L100.0100 ####[facility] [address] [place] [place], [address] Sodium [Moles/Vol] 137 mmol/L Normal 133-145 [facility] Comment on above: Performed By: #### L 500.2500, L100.0100 ####[facility] [address] [place], [address] Urea nitrogen [Mass/Vol] 49 mg/dL High 4-19 [facility] Comment on above: Performed By: #### L 500.2500, L100.0100 ####[facility] [address] [place], [address] Basophil percentageOrdered B y: Ramonita Herron on 12-04-2024 Basophils/100 WBC (Bld) 0.3 % 0-1 [facility] Bedside Glucoseon 12-04-2024 FINGERSTICK GLU 151 mg/dL High 74-106 [facility] Comment on above: Result Comment: WILDA GEMENT OF PATIENT CARE PER NURSING PROTOCOL Performed By: #### L 501.080 ####[facility] [address] [place], [address] FINGERSTICK GLU 147 mg/dL High 74-106 [facility] Comment on above: Result Comment: WILDA GEMENT OF PATIENT CARE PER NURSING PROTOCOL Performed By: #### L 501.080 ####[facility] [address] [place], [address] FINGERSTICK GLU 207 mg/dL High 74-106 [facility] Comment on above: Result Comment: WILDA GEMENT OF PATIENT CARE PER NURSING PROTOCOL Performed By: #### L 501.080 ####[facility] [address] [place], [address] FINGERSTICK GLU 147 mg/dL High 74-106 [facility] Comment on above: Result Comment: WILDA BARROSO OF PATIENT CARE PER NURSING PROTOCOL Performed By: #### L 501.080 ####[facility] [address] [place], [address] CBC W/Diff, Automatedon 08-0 4-2024 Absolute Lymph 1.07 X10 3/uL Normal 0.83-4.51 [facility] Comment on above: Performed By: #### L 500.2500, L100.0100 ####[facility] [address] [place], [address] Absolute Neut 7.1 X10 3/uL Normal 2.0-7.7 [facility] Comment on above: Performed By: #### L 500.2500, L100.0100 ####[facility] [address] [place], [address] Basophils/100 WBC (Bld) 0.3 % Normal 0-1 [facility] Comment on above: Performed By: #### L 500.2500, L100.0100 ####[facility] [address] [place], [address] Eosinophils/100 WBC (Bld) 2.2 % Normal 0-5 [facility] Comment on above: Performed By: #### L 500.2500, L100.0100 ####[facility] [address] [place], [address] Erythrocyte distribution width (RBC) [Ratio] 13.7 % Normal 11.6-14.6 [facility] Comment on above: Performed By: #### L 500.2500, L100.0100 ####[facility] [address] [place], [address] Hematocrit (Bld) [Volume fraction] 31.5 % Low 40-54 [facility] Comment on above: Performed By: #### L 500.2500, L100.0100 ####[facility] [address] [place], [address] Hemoglobin (Bld) [Mass/Vol] 10.5 g/dL Low 13.0-16.5 [facility] Comment on above: Performed By: #### L 500.2500, L100.0100 ####[facility] [address] [place], [address] IG% 0.600 Normal 0.0-0.9 [facility] Comment on above: Result Comment: IG% - Immature Granulocytes (promyelocytes, myelocytes andmetamyelocytes) > 1% indicates that a LEFT SHIFT is Present. Performed By: #### L 500.2500, L100.0100 ####[facility] [address] [place], [address] Lymphocytes/100 WBC (Bld) 11.1 % Low 19-41 [facility] Comment on above: Performed By: #### L 500.2500, L100.0100 ####[facility] [address] [place], [address] MCH (RBC) [Entitic mass] 29.2 pg Normal 27.0-32.0 [facility] Comment on above: Performed By: #### L 500.2500, L100.0100 ####[facility] [address] [place], [address] MCHC (RBC) [Mass/Vol] 33.3 g/dL Normal 32-36 [facility] Comment on above: Performed By: #### L 500.2500, L100.0100 ####[facility] [address] [place], [address] MCV (RBC) [Entitic vol] 87.7 fL Normal 80-94 [facility] Comment on above: Performed By: #### L 500.2500, L100.0100 ####[facility] [address] [place], [address] Monocytes/100 WBC (Bld) 11.9 % High 0-10 [facility] Comment on above: Performed By: #### L 500.2500, L100.0100 ####[facility] [address] [place], [address] Neutrophils/100 WBC (Bld) 73.9 % High 47-70 [facility] Comment on above: Performed By: #### L 500.2500, L100.0100 ####[facility] [address] [place], [address] Nucleated RBC (Bld) [#/Vol] 0 10*3/uL Normal 0-5 [facility] Comment on above: Performed By: #### L 500.2500, L100.0100 ####[facility] [address] [place], [address] Platelet mean volume (Bld) [Entitic vol] 13.7 fL High 6.2-12.0 [facility] Comment on above: Performed By: #### L 500.2500, L100.0100 ####[facility] [address] [place], [address] Platelets (Bld) [#/Vol] 126 10*3/uL Low 150-450 [facility] Comment on above: Performed By: #### L 500.2500, L100.0100 ####[facility] [address] [place], [address] RBC (Bld) [#/Vol] 3.59 10*6/uL Low 4.6-6.2 [facility] Comment on above: Performed By: #### L 500.2500, L100.0100 ####[facility] [address] [place], [address] RDW SD 43.8 fl Normal 35.1-43.9 [facility] Comment on above: Performed By: #### L 500.2500, L100.0100 ####[facility] [address] [place], [place], [address] WBC (Bld) [#/Vol] 9.7 10*3/uL Normal 4.4-11.0 [facility] Comment on above: Performed By: #### L 500.2500, L100.0100 ####[facility] [address] [place], [place], [address] Cardiac catheterization repo rtOrdered By: Marcin Araujo on 12-04-2024 Cardiac catheterization study [facility] Work Phone: [phone] Electrocardiogram reportOrde red By: Marcin Araujo on 12-04-2024 EKG study [facility] Work Phone: [phone] Eosinophil percentageOrdered By: Ramonita Herron on 12-04-2024 Eosinophils/100 WBC (Bld) 2.2 % 0-5 [facility] Erythrocyte distribution wid th ratioOrdered By: Ramonita Herron on 12-04-2024 Erythrocyte distribution width (RBC) [Ratio] 13.7 % 11.6-14.6 [facility] Erythrocyte distribution wid th standard deviationOrdered By: Ramonita Herron on 12-04-2024 Erythrocyte distribution width (RBC) [Ratio] 43.8 fl 35.1-43.9 [facility] Hematocrit Auto (Bld) [Volum e fraction]Ordered By: Ramonita Herron on 12-04-2024 Hematocrit (Bld) [Volume fraction] 31.5 % Low 40-54 [facility] Hemoglobin measurementOrdere d By: Ramonita Herron on 12-04-2024 Hemoglobin (Bld) [Mass/Vol] 10.5 g/dL Low 13.0-16.5 [facility] Immature granulocytes/100 WB C Auto (Bld)Ordered By: Ramonita Herron on 12-04-2024 Immature granulocytes/100 WBC (Bld) 0.600 % 0.0-0.9 [facility] MCV (mean corpuscular volume ) determinationOrdered By: Ramonita Herron on 12-04-2024 MCV (RBC) [Entitic vol] 87.7 fL 80-94 [facility] Mean corpuscular hemoglobin (MCH) determinationOrdered By: Ramonita Herron on 12-04-2024 MCH (RBC) [Entitic mass] 29.2 pg 27.0-32.0 [facility] Monocyte percentageOrdered B y: Ramonita Herron on 12-04-2024 Monocytes/100 WBC (Bld) 11.9 % High 0-10 [facility] Neutrophil percentageOrdered By: Ramonita Herron on 12-04-2024 Neutrophils/100 WBC (Bld) 73.9 % High 47-70 [facility] Platelet countOrdered By: Parish Herron on 12-04-2024 Platelets (Bld) [#/Vol] 126 10*3/uL Low 150-450 [facility] RBC Auto (Bld) [#/Vol]Ordere d By: Ramonita Herron on 12-04-2024 RBC (Bld) [#/Vol] 3.59 10*6/uL Low 4.6-6.2 [facility] White blood cell (WBC) count Ordered By: Ramonita Herron on 12-04-2024 WBC (Bld) [#/Vol] 9.7 10*3/uL 4.4-11.0 [facility] 12 Lead EKGon 12-03-2024 12 Lead EKG Normal [facility] Bedside Glucoseon 12-03-2024 FINGERSTICK GLU 153 mg/dL High 74-106 [facility] Comment on above: Result Comment: WILDA GEMENT OF PATIENT CARE PER NURSING PROTOCOL Performed By: #### L 501.080 ####[facility] [address] [facility] [address] FINGERSTICK GLU 156 mg/dL High 74-106 [facility] Comment on above: Result Comment: WILDA GEMENT OF PATIENT CARE PER NURSING PROTOCOL Performed By: #### L 501.080 ####[facility] [address] [place], [address] FINGERSTICK GLU 226 mg/dL High 74-106 [facility] Comment on above: Result Comment: WILDA GEMENT OF PATIENT CARE PER NURSING PROTOCOL Performed By: #### L 501.080 ####[facility] [address] [place], [address] FINGERSTICK GLU 140 mg/dL High 74-106 [facility] Comment on above: Result Comment: WILDA GEMENT OF PATIENT CARE PER NURSING PROTOCOL Performed By: #### L 501.080 ####[facility] [address] [place], [address] FINGERSTICK GLU 200 mg/dL High 74-106 [facility] Comment on above: Result Comment: WILDA GEMENT OF PATIENT CARE PER NURSING PROTOCOL Performed By: #### L 501.080 ####[facility] [address] [place], [address] Bilirubin Test strip Ql (U)O rdered By: Alex Resendez on 12-03-2024 Bilirubin Ql (U) Negative Negative [facility] Bilirubin, totalOrdered By: Alex Resendez on 12-03-2024 Bilirubin [Mass/Vol] 1.27 mg/dL 0.00-1.30 [facility] CBC W/Diff, Automatedon 08 Absolute Lymph 0.95 X10 3/uL Normal 0.83-4.51 [facility] Comment on above: Performed By: #### L 100.0100, L500.4050, L501.2300, L501.5200 ####[facility] [address] [place], [address] Absolute Neut 6.9 X10 3/uL Normal 2.0-7.7 [facility] Comment on above: Performed By: #### L 100.0100, L500.4050, L501.2300, L501.5200 ####[facility] [address] [place], [address] Basophils/100 WBC (Bld) 0.2 % Normal 0-1 [facility] Comment on above: Performed By: #### L 100.0100, L500.4050, L501.2300, L501.5200 ####[facility] [address] [place], [address] Eosinophils/100 WBC (Bld) 1.8 % Normal 0-5 [facility] Comment on above: Performed By: #### L 100.0100, L500.4050, L501.2300, L501.5200 ####[facility] [address] [place], [address] Erythrocyte distribution width (RBC) [Ratio] 14.2 % Normal 11.6-14.6 [facility] Comment on above: Performed By: #### L 100.0100, L500.4050, L501.2300, L501.5200 ####[facility] [address] [place], [address] Hematocrit (Bld) [Volume fraction] 31.8 % Low 40-54 [facility] Comment on above: Performed By: #### L 100.0100, L500.4050, L501.2300, L501.5200 ####[facility] [address] [place], [address] Hemoglobin (Bld) [Mass/Vol] 10.3 g/dL Low 13.0-16.5 [facility] Comment on above: Performed By: #### L 100.0100, L500.4050, L501.2300, L501.5200 ####[facility] [address] [place], [address] IG% 0.600 Normal 0.0-0.9 [facility] Comment on above: Result Comment: IG% - Immature Granulocytes (promyelocytes, myelocytes andmetamyelocytes) > 1% indicates that a LEFT SHIFT is Present. Performed By: #### L 100.0100, L500.4050, L501.2300, L501.5200 ####[facility] [address] [place], [address] Lymphocytes/100 WBC (Bld) 10.5 % Low 19-41 [facility] Comment on above: Performed By: #### L 100.0100, L500.4050, L501.2300, L501.5200 ####[facility] [address] [place], [address] MCH (RBC) [Entitic mass] 29.3 pg Normal 27.0-32.0 [facility] Comment on above: Performed By: #### L 100.0100, L500.4050, L501.2300, L501.5200 ####[facility] [address] [place], [address] MCHC (RBC) [Mass/Vol] 32.4 g/dL Normal 32-36 [facility] Comment on above: Performed By: #### L 100.0100, L500.4050, L501.2300, L501.5200 ####[facility] [address] [place], [address] MCV (RBC) [Entitic vol] 90.3 fL Normal 80-94 [facility] Comment on above: Performed By: #### L 100.0100, L500.4050, L501.2300, L501.5200 ####[facility] [address] [place], [address] Monocytes/100 WBC (Bld) 11.4 % High 0-10 [facility] Comment on above: Performed By: #### L 100.0100, L500.4050, L501.2300, L501.5200 ####[facility] [address] [place], [address] Neutrophils/100 WBC (Bld) 75.5 % High 47-70 [facility] Comment on above: Performed By: #### L 100.0100, L500.4050, L501.2300, L501.5200 ####[facility] [address] [place], [address] Nucleated RBC (Bld) [#/Vol] 0 10*3/uL Normal 0-5 [facility] Comment on above: Performed By: #### L 100.0100, L500.4050, L501.2300, L501.5200 ####[facility] [address] [place], [address] Platelet mean volume (Bld) [Entitic vol] 12.4 fL High 6.2-12.0 [facility] Comment on above: Performed By: #### L 100.0100, L500.4050, L501.2300, L501.5200 ####[facility] [address] [place], [address] Platelets (Bld) [#/Vol] 104 10*3/uL Low 150-450 [facility] Comment on above: Performed By: #### L 100.0100, L500.4050, L501.2300, L501.5200 ####[facility] [address] [place], [address] RBC (Bld) [#/Vol] 3.52 10*6/uL Low 4.6-6.2 [facility] Comment on above: Performed By: #### L 100.0100, L500.4050, L501.2300, L501.5200 ####[facility] [address] [place], [address] RDW SD 46.0 fl High 35.1-43.9 [facility] Comment on above: Performed By: #### L 100.0100, L500.4050, L501.2300, L501.5200 ####[facility] [address] [place], [address] WBC (Bld) [#/Vol] 9.1 10*3/uL Normal 4.4-11.0 [facility] Comment on above: Performed By: #### L 100.0100, L500.4050, L501.2300, L501.5200 ####[facility] [address] [place], [address] Comprehensive Metabolic Prof ilon 12-03-2024 Albumin [Mass/Vol] 3.4 g/dL Normal 3.4-4.8 [facility] Comment on above: Performed By: #### L 100.0100, L500.4050, L501.2300, L501.5200 ####[facility] [address] [place], [address] Albumin/Globulin [Mass ratio] 1.2 {ratio} Normal 0.9-2.4 [facility] Comment on above: Performed By: #### L 100.0100, L500.4050, L501.2300, L501.5200 ####[facility] [address] [place], [address] ALK PHOS 94 U/L Normal 40-129 [facility] Comment on above: Performed By: #### L 100.0100, L500.4050, L501.2300, L501.5200 ####[facility] [address] [place], [address] ALT [Catalytic activity/Vol] 47 U/L Normal <=46 [facility] Comment on above: Performed By: #### L 100.0100, L500.4050, L501.2300, L501.5200 ####[facility] [address] [place], [address] AST [Catalytic activity/Vol] 134 U/L High <=37 [facility] Comment on above: Performed By: #### L 100.0100, L500.4050, L501.2300, L501.5200 ####[facility] [address] [place], [address] Bilirubin [Mass/Vol] 1.27 mg/dL Normal 0.00-1.30 [facility] Comment on above: Performed By: #### L 100.0100, L500.4050, L501.2300, L501.5200 ####[facility] [address] [place], [address] BUN/CRE 20.6 RATIO High 10-20 [facility] Comment on above: Performed By: #### L 100.0100, L500.4050, L501.2300, L501.5200 ####[facility] [address] [place], [address] Calcium [Mass/Vol] 8.9 mg/dL Normal 7.6-11.0 [facility] Comment on above: Performed By: #### L 100.0100, L500.4050, L501.2300, L501.5200 ####[facility] [address] [place], [address] Chloride [Moles/Vol] 100 mmol/L Normal 98-108 [facility] Comment on above: Performed By: #### L 100.0100, L500.4050, L501.2300, L501.5200 ####[facility] [address] [place], [address] CO2 [Moles/Vol] 18.7 mmol/L Low 21.0-32.0 [facility] Comment on above: Performed By: #### L 100.0100, L500.4050, L501.2300, L501.5200 ####[facility] [address] [place], [address] Creatinine [Mass/Vol] 2.58 mg/dL High 0.70-1.20 [facility] Comment on above: Performed By: #### L 100.0100, L500.4050, L501.2300, L501.5200 ####[facility] [address] [place], [address] ECRCL 28.22 ml/min Low 50-250 [facility] Comment on above: Performed By: #### L 100.0100, L500.4050, L501.2300, L501.5200 ####[facility] [address] [place], [address] GAP 15 Normal 5-15 [facility] Comment on above: Performed By: #### L 100.0100, L500.4050, L501.2300, L501.5200 ####[facility] [address] [place], [address] GFR/1.73 sq M.predicted among non-blacks MDRD (S/P/Bld) [Vol rate/Area] 25 mL/min/{1.73_m2} Low >60 [facility] Comment on above: Result Comment: mL/m in/1.73m2 CKD-EPI Creatinine Equation (2020) Performed By: #### L 100.0100, L500.4050, L501.2300, L501.5200 ####[facility] [address] [place], [address] Globulin (S) [Mass/Vol] 2.8 g/dL Normal 2.2-4.2 [facility] Comment on above: Performed By: #### L 100.0100, L500.4050, L501.2300, L501.5200 ####[facility] [address] [place], [address] Glucose [Mass/Vol] 154 mg/dL High 70-99 [facility] Comment on above: Performed By: #### L 100.0100, L500.4050, L501.2300, L501.5200 ####[facility] [address] [place], [address] Potassium [Moles/Vol] 3.7 mmol/L Normal 3.3-5.1 [facility] Comment on above: Performed By: #### L 100.0100, L500.4050, L501.2300, L501.5200 ####[facility] [address] [place], [address] Sodium [Moles/Vol] 134 mmol/L Normal 133-145 [facility] Comment on above: Performed By: #### L 100.0100, L500.4050, L501.2300, L501.5200 ####[facility] [address] [place], [address] T PROT 6.3 g/dL Normal 5.9-8.4 [facility] Comment on above: Performed By: #### L 100.0100, L500.4050, L501.2300, L501.5200 ####[facility] [address] [place], [address] Urea nitrogen [Mass/Vol] 53 mg/dL High 4-19 [facility] Comment on above: Performed By: #### L 100.0100, L500.4050, L501.2300, L501.5200 ####[facility] [address] [place], [address] Consultation - Cardiologyon 12-03-2024 Consultation - Cardiology Normal [facility] Ketones Test strip Ql (U)Ord ered By: Alex Resendez on 12-03-2024 Ketones Ql (U) Negative Negative [facility] Magnesiumon 12-03-2024 Magnesium [Mass/Vol] 2.5 mg/dL High 1.5-2.2 [facility] Comment on above: Performed By: #### L 100.0100, L500.4050, L501.2300, L501.5200 ####[facility] [address] [place], [address] Magnesium measurement (mass/ volume)Ordered By: Alex Resendez on 12-03-2024 Magnesium (Unsp spec) [Mass/Vol] 2.5 mg/dL High 1.5-2.2 [facility] Mucus LM Ql (Urine sed)Order ed By: Alex Resendez on 12-03-2024 Mucus Ql (Urine sed) 0 SEEN /hpf [facility] Nitrite Test strip Ql (U)Ord ered By: Alex Resendez on 12-03-2024 Nitrite Ql (U) Negative Negative [facility] No Panel InformationOrdered By: Alex Resendez on 12-03-2024 134 U/L High <38 [facility] Phosphoruson 12-03-2024 Phosphate [Mass/Vol] 3.4 mg/dL Normal 2.7-4.5 [facility] Comment on above: Performed By: #### L 100.0100, L500.4050, L501.2300, L501.5200 ####[facility] [address] [place], [address] Protein Test strip Ql (U)Ord ered By: Alex Resendez on 12-03-2024 Protein Ql (U) 15 mg/dl High Negative [facility] Serum globulin measurementOr dered By: Alex Resendez on 12-03-2024 Globulin (S) [Mass/Vol] 2.8 g/dL 2.2-4.2 [facility] Serum or plasma alanine guerrero otransferase (ALT) measurementOrdered By: Alex Resendez on 12-03-2024 ALT [Catalytic activity/Vol] 47 U/L <47 [facility] Serum or plasma albumin francine urement (mass/volume)Ordered By: Alex Resendez on 12-03-2024 Albumin [Mass/Vol] 3.4 g/dL 3.4-4.8 [facility] Serum or plasma albumin/glob ulin mass ratioOrdered By: Alex Resendez on 12-03-2024 Albumin/Globulin [Mass ratio] 1.2 {ratio} 0.9-2.4 [facility] Serum or plasma alkaline bell sphatase measurementOrdered By: Alex Resendez on 12-03-2024 ALP [Catalytic activity/Vol] 94 U/L 40-129 [facility] Squamous epithelial cells de tection in urine sediment by light microscopyOrdered By: Alex Resendez on 12-03-2024 Epithelial cells.squamous LM Ql (Urine sed) 0 SEEN /hpf 0-5 [facility] Total proteinOrdered By: Yoseph Westonenzo on 12-03-2024 Protein [Mass/Vol] 6.3 g/dL 5.9-8.4 [facility] Troponin T HS 2 HRon 025 Trop T High Sen > [address] Invalid Interpretation Code <=22 [facility] Comment on above: Result Comment: Crit ical Result(s) Called at:0007 by:??KEIKO BABB Results read back by same. Performed By: #### L 499.0042 ####[facility] [address] [place], [place], [id number] Troponin T HS 4 HRon 025 Trop T High Sen > [address] Invalid Interpretation Code <=22 [facility] Comment on above: Result Comment: Crit ical Result(s) Called at: 0240 by:??KEIKO HOOPER Results read back by same. Performed By: #### L 499.0043 ####[facility] [address] [place], [place], [phone] Troponin T.cardiac [Mass/vol ume] in Serum or Plasma by High sensitivity methodOrdered By: Rasheed Canela on 12-03-2024 Troponin T.cardiac High sensitivity method [Mass/Vol] > [address] ng/L High <22 [facility] Urinalysis, Completeon 12-03 BACTERIA 0 SEEN Normal None Seen [facility] Comment on above: Order Comment: CLEAN CATCH Performed By: #### L 400.0001 ####[facility] [address] [place], [place], [id number]) EPI,SQUAMOUS 0 SEEN Normal 0-5 [facility] Comment on above: Order Comment: CLEAN CATCH Performed By: #### L 400.0001 ####[facility] [address] [place], [address] Mucus Ql (Urine sed) 0 SEEN Normal [facility] Comment on above: Order Comment: CLEAN CATCH Performed By: #### L 400.0001 ####[facility] [address] [place], [address] RBC 0 SEEN Normal 0-5 [facility] Comment on above: Order Comment: CLEAN CATCH Performed By: #### L 400.0001 ####[facility] [address] [place], [address] WBC 0 SEEN Normal 0-5 [facility] Comment on above: Order Comment: CLEAN CATCH Performed By: #### L 400.0001 ####[facility] [address] [place], [place], [id number] Urine clarityOrdered By: Yoseph Resendez on 12-03-2024 Clarity (U) Clear Clear [facility] Urine color determinationOrd ered By: Alex Resendez on 12-03-2024 Color (U) Yellow Yellow [facility] Urine glucose detectionOrder ed By: Alex Resendez on 12-03-2024 Glucose Ql (U) Normal mg/dl Normal [facility] Urine leukocyte esterase det ection by dipstickOrdered By: Alex Resendez on 12-03-2024 Leukocyte esterase Test strip Ql (U) Negative Negative [facility] Urine pHOrdered By: Alex best on 12-03-2024 pH (U) 6.0 [pH] 5.0 - 8.0 [facility] Urine sediment bacteria coun t by microscopy (number/high power field)Ordered By: Alex Resendez on 12-03-2024 Bacteria LM.HPF (Urine sed) [#/Area] 0 /[HPF] None Seen [facility] Urine specific gravity measu rementOrdered By: Alex Resendez on 12-03-2024 Specific gravity (U) [Rel density] 1.015 1.002-1.03 0 [facility] Urine urobilinogen measureme ntOrdered By: Alex Resendez on 12-03-2024 Urobilinogen Ql (U) Normal mg/dl Normal [facility] White blood cell countOrdere d By: Alex Resendez on 12-03-2024 White blood cell count 0 SEEN /hpf 0-5 [facility] 12 Lead EKGon 12-02-2024 12 Lead EKG Normal [facility] ACT Activated Clotting Timeo n 12-02-2024 ACTk CLOT TIME 245 sec High 74-137 [facility] Comment on above: Performed By: #### L 9100.0100 ####[facility] [address] [place], [address] Absolute lymphocyte countOrd ered By: Rasheed Canela [...] aPTT Coag (PPP) [Time] 31.6 s 24.1-36.[address] [facility] Anion gap in Serum or Plasma Ordered By: Rasheed Canela on 12-02-2024 Anion gap [Moles/Vol] 14 mmol/L 09-14 [facility] Anion gap in Serum or Plasma Ordered By: Nickie Danielson on 12-02-2024 Anion gap [Moles/Vol] 14 mmol/L 09-14 [facility] Automated lymphocyte count a s percentage of total leukocytesOrdered By: Rasheed Canela on 12-02-2024 Lymphocytes/100 WBC Auto (Unsp spec) 8.9 % Low [facility] Automated lymphocyte count a s percentage of total leukocytesOrdered By: Nickie Danielson on 12-02-2024 Lymphocytes/100 WBC Auto (Unsp spec) 7.6 % Low [facility] BUN/creatinine ratioOrdered By: Rasheed Canela on 08-02-2025 Urea nitrogen/Creatinine [Mass ratio] 18.0 mg/mg 02-19 [facility] BUN/creatinine ratioOrdered By: Nickie Danielson on 12-02-2024 Urea nitrogen/Creatinine [Mass ratio] 17.2 mg/mg 02-19 [facility] Basic Metabolic Profile (BMP )on 12-02-2024 BUN/CRE 18.0 RATIO Normal 02-19 [facility] Comment on above: Performed By: #### L 300.4310, L501.4021, L300.3900, L500.2500, L100.0100 ####[facility] [address] [place], [address] Calcium [Mass/Vol] 9.1 mg/dL Normal 7.6-11.0 [facility] Comment on above: Performed By: #### L 300.4310, L501.4021, L300.3900, L500.2500, L100.0100 ####[facility] [address] [place], [address] Chloride [Moles/Vol] 96 mmol/L Low 98-108 [facility] Comment on above: Performed By: #### L 300.4310, L501.4021, L300.3900, L500.2500, L100.0100 ####[facility] [address] [place], [address] CO2 [Moles/Vol] 20.5 mmol/L Low 21.0-32.0 [facility] Comment on above: Performed By: #### L 300.4310, L501.4021, L300.3900, L500.2500, L100.0100 ####[facility] [address] [place], [address] Creatinine [Mass/Vol] 2.90 mg/dL High 0.70-1.20 [facility] Comment on above: Performed By: #### L 300.4310, L501.4021, L300.3900, L500.2500, L100.0100 ####[facility] [address] [place], [address] ECRCL 25.31 ml/min Low 50-250 [facility] Comment on above: Performed By: #### L 300.4310, L501.4021, L300.3900, L500.2500, L100.0100 ####[facility] [address] [place], [address] GAP 14 Normal 5-15 [facility] Comment on above: Performed By: #### L 300.4310, L501.4021, L300.3900, L500.2500, L100.0100 ####[facility] [address] [place], [address] GFR/1.73 sq M.predicted among non-blacks MDRD (S/P/Bld) [Vol rate/Area] 21 mL/min/{1.73_m2} Low >60 [facility] Comment on above: Result Comment: mL/m in/1.73m2 CKD-EPI Creatinine Equation (2020) Performed By: #### L 300.4310, L501.4021, L300.3900, L500.2500, L100.0100 ####[facility] [address] [place], [address] Glucose [Mass/Vol] 175 mg/dL High 70-99 [facility] Comment on above: Performed By: #### L 300.4310, L501.4021, L300.3900, L500.2500, L100.0100 ####[facility] [address] [place], [address] Potassium [Moles/Vol] 4.6 mmol/L Normal 3.3-5.1 [facility] Comment on above: Performed By: #### L 300.4310, L501.4021, L300.3900, L500.2500, L100.0100 ####[facility] [address] [place], [address] Sodium [Moles/Vol] 131 mmol/L Low 133-145 [facility] Comment on above: Performed By: #### L 300.4310, L501.4021, L300.3900, L500.2500, L100.0100 ####[facility] [address] [place], [address] Urea nitrogen [Mass/Vol] 52 mg/dL High 4-19 [facility] Comment on above: Performed By: #### L 300.4310, L501.4021, L300.3900, L500.2500, L100.0100 ####[facility] [address] [place], [address] BUN/CRE 17.2 RATIO Normal 10-20 [facility] Comment on above: Performed By: #### L 500.2500, L100.0100 ####[facility] [address] [place], [address] Calcium [Mass/Vol] 9.3 mg/dL Normal 7.6-11.0 [facility] Comment on above: Performed By: #### L 500.2500, L100.0100 ####[facility] [address] [place], [address] Chloride [Moles/Vol] 99 mmol/L Normal 98-108 [facility] Comment on above: Performed By: #### L 500.2500, L100.0100 ####[facility] [address] [place], [address] CO2 [Moles/Vol] 20.6 mmol/L Low 21.0-32.0 [facility] Comment on above: Performed By: #### L 500.2500, L100.0100 ####[facility] [address] [place], [address] Creatinine [Mass/Vol] 2.93 mg/dL High 0.70-1.20 [facility] Comment on above: Performed By: #### L 500.2500, L100.0100 ####[facility] [address] [place], [address] ECRCL 24.95 ml/min Low 50-250 [facility] Comment on above: Performed By: #### L 500.2500, L100.0100 ####[facility] [address] [place], [address] GAP 14 Normal 5-15 [facility] Comment on above: Performed By: #### L 500.2500, L100.0100 ####[facility] [address] [place], [address] GFR/1.73 sq M.predicted among non-blacks MDRD (S/P/Bld) [Vol rate/Area] 21 mL/min/{1.73_m2} Low >60 [facility] Comment on above: Result Comment: mL/m in/1.73m2 CKD-EPI Creatinine Equation (2020) Performed By: #### L 500.2500, L100.0100 ####[facility] [address] [place], [address] Glucose [Mass/Vol] 138 mg/dL High 70-99 [facility] Comment on above: Performed By: #### L 500.2500, L100.0100 ####[facility] [address] [place], [address] Potassium [Moles/Vol] 4.8 mmol/L Normal 3.3-5.1 [facility] Comment on above: Performed By: #### L 500.2500, L100.0100 ####[facility] [address] [place], [address] Sodium [Moles/Vol] 133 mmol/L Normal 133-145 [facility] Comment on above: Performed By: #### L 500.2500, L100.0100 ####[facility] [address] [place], [address] Urea nitrogen [Mass/Vol] 50 mg/dL High 4-19 [facility] Comment on above: Performed By: #### L 500.2500, L100.0100 ####[facility] [address] [place], [address] Basophil percentageOrdered B y: Rasheedjulian Burriso on 12-02-2024 Basophils/100 WBC (Bld) 0.3 % 0-1 [facility] Basophil percentageOrdered B y: Nickie Danielson on 12-02-2024 Basophils/100 WBC (Bld) 0.1 % 0-1 [facility] Bedside Glucoseon 12-02-2024 FINGERSTICK GLU 129 mg/dL High 74-106 [facility] Comment on above: Result Comment: WILDA BARROSO OF PATIENT CARE PER NURSING PROTOCOL Performed By: #### L 501.080 ####[facility] [address] [place], [address] Blood manual differential co mment interpretation (narrative result)Ordered By: Rasheed Canela on 12-02-2024 Manual differential comment Luis Manuel (Bld) [Interp] SCANNED [facility] Brain without Contraston Brain without Contrast Normal [facility] CBC W/Diff, Automatedon PLT EST SLT DEC Normal ADEQ [facility] Comment on above: Performed By: #### L 300.4310, L501.4021, L300.3900, L500.2500, L100.0100 ####[facility] [address] [place], [address] SMEAR COMMENT SCANNED Normal [facility] Comment on above: Performed By: #### L 300.4310, L501.4021, L300.3900, L500.2500, L100.0100 ####[facility] [address] [place], [address] Absolute Lymph 0.85 X10 3/uL Normal 0.83-4.51 [facility] Comment on above: Performed By: #### L 500.2500, L100.0100 ####[facility] [address] [place], [address] Absolute Neut 8.8 X10 3/uL High 2.0-7.7 [facility] Comment on above: Performed By: #### L 500.2500, L100.0100 ####[facility] [address] [place], [address] Basophils/100 WBC (Bld) 0.1 % Normal 0-1 [facility] Comment on above: Performed By: #### L 500.2500, L100.0100 ####[facility] [address] [place], [address] Eosinophils/100 WBC (Bld) 0.7 % Normal 0-5 [facility] Comment on above: Performed By: #### L 500.2500, L100.0100 ####[facility] [address] [place], [address] Erythrocyte distribution width (RBC) [Ratio] 14.4 % Normal 11.6-14.6 [facility] Comment on above: Performed By: #### L 500.2500, L100.0100 ####[facility] [address] [place], [address] Hematocrit (Bld) [Volume fraction] 32.1 % Low 40-54 [facility] Comment on above: Performed By: #### L 500.2500, L100.0100 ####[facility] [address] [place], [address] Hemoglobin (Bld) [Mass/Vol] 10.4 g/dL Low 13.0-16.5 [facility] Comment on above: Performed By: #### L 500.2500, L100.0100 ####[facility] [address] [place], [address] IG% 0.700 Normal 0.0-0.9 [facility] Comment on above: Result Comment: IG% - Immature Granulocytes (promyelocytes, myelocytes andmetamyelocytes) > 1% indicates that a LEFT SHIFT is Present. Performed By: #### L 500.2500, L100.0100 ####[facility] [address] [place], [address] Lymphocytes/100 WBC (Bld) 7.6 % Low 19-41 [facility] Comment on above: Performed By: #### L 500.2500, L100.0100 ####[facility] [address] [place], [address] MCH (RBC) [Entitic mass] 29.5 pg Normal 27.0-32.0 [facility] Comment on above: Performed By: #### L 500.2500, L100.0100 ####[facility] [address] [place], [address] MCHC (RBC) [Mass/Vol] 32.4 g/dL Normal 32-36 [facility] Comment on above: Performed By: #### L 500.2500, L100.0100 ####[facility] [address] [place], [address] MCV (RBC) [Entitic vol] 91.2 fL Normal 80-94 [facility] Comment on above: Performed By: #### L 500.2500, L100.0100 ####[facility] [address] [place], [address] Monocytes/100 WBC (Bld) 12.0 % High 0-10 [facility] Comment on above: Performed By: #### L 500.2500, L100.0100 ####[facility] [address] [place], [address] Neutrophils/100 WBC (Bld) 78.9 % High 47-70 [facility] Comment on above: Performed By: #### L 500.2500, L100.0100 ####[facility] [address] [place], [address] Nucleated RBC (Bld) [#/Vol] 0 10*3/uL Normal 0-5 [facility] Comment on above: Performed By: #### L 500.2500, L100.0100 ####[facility] [address] [place], [address] Platelet mean volume (Bld) [Entitic vol] 13.1 fL High 6.2-12.0 [facility] Comment on above: Performed By: #### L 500.2500, L100.0100 ####[facility] [address] [place], [address] Platelets (Bld) [#/Vol] 113 10*3/uL Low 150-450 [facility] Comment on above: Performed By: #### L 500.2500, L100.0100 ####[facility] [address] [place], [address] RBC (Bld) [#/Vol] 3.52 10*6/uL Low 4.6-6.2 [facility] Comment on above: Performed By: #### L 500.2500, L100.0100 ####[facility] [address] [place], [address] RDW SD 47.4 fl High 35.1-43.9 [facility] Comment on above: Performed By: #### L 500.2500, L100.0100 ####[facility] [address] [place], [address] WBC (Bld) [#/Vol] 11.2 10*3/uL High 4.4-11.0 [facility] Comment on above: Performed By: #### L 500.2500, L100.0100 ####[facility] [address] [place], [address] CVS/PCIREPORTon 12-02-2024 CVS/PCIREPORT Normal [facility] Carbon dioxide, total [Moles /volume] in Central venous bloodOrdered By: Rasheed Canela on 12-02-2024 CO2 [Moles/Vol] 20.5 mmol/L Low 21.0-32.0 [facility] Carbon dioxide, total [Moles /volume] in Central venous bloodOrdered By: Nickie Danielson on 12-02-2024 CO2 [Moles/Vol] 20.6 mmol/L Low 21.0-32.0 [facility] Chloride assayOrdered By: Afshin o Hilton on 12-02-2024 Chloride [Moles/Vol] 96 mmol/L Low 98-108 [facility] Chloride assayOrdered By: Korina Danielson on 12-02-2024 Chloride [Moles/Vol] 99 mmol/L 98-108 [facility] Emergency Department Summary on 12-02-2024 Emergency Department Summary Normal [facility] Eosinophil percentageOrdered By: Rasheed Canela on 12-02-2024 [...] >60 [facility] deOrdered By: Nickie Danielson on 12-02-2024 Glucose [Mass/Vol] 200 mg/dL High 74-106 [facility] Glucose [Mass/Vol] 129 mg/dL High 74-106 [facility] H AND P Exam - Hospitaliston 12-02-2024 H&P Exam - Hospitalist Normal [facility] Hematocrit Auto (Bld) [Volum e [...] L501.4021on 12-02-2024 Trop T High Sen > [address] Invalid Interpretation Code <=22 [facility] Comment on above: Result Comment: Crit ical Result(s) Called at: 2120 by: MOISE MENDIOLA??Results read back by same. Performed By: #### L 300.4310, L501.4021, L300.3900, L500.2500, L100.0100 ####[facility] [address] [place], [address] MCV (mean corpuscular volume ) determinationOrdered By: [...] Coag (Bld) [Time] 31.6 s Normal 24.1-36.[address] [facility] Comment on above: Performed By: #### L 300.4310, L501.4021, L300.3900, L500.2500, L100.0100 ####[facility] [address], [place], [address] Platelet countOrdered By: Afshin Canela on 12-02-2024 Platelets (Bld) [#/Vol] 134 10*3/uL Low 150-450 [facility] Platelet countOrdered By: Korina Danielson on 12-02-2024 Platelets (Bld) [#/Vol] 113 10*3/uL Low 150-450 [facility] Platelet estimateOrdered By: Rasheed Canela on 12-02-2024 Platelets LM Ql (Bld) SLT DEC ADEQ [facility] Potassium measurement (mass/ volume)Ordered By: Rasheed Canela [...] #### L 300.4310, L501.4021, L300.3900, L500.2500, L100.0100 ####[facility] [address] [place], [address] PT Coag (PPP) [Time] 14.6 s Normal 11.7-14.9 [facility] Comment on above: Performed By: #### L 300.4310, L501.4021, L300.3900, L500.2500, L100.0100 ####[facility] [address] [place], [address] Prothrombin timeOrdered By: Rasheed Canela on 12-02-2024 PT Coag (PPP) [Time] 14.6 s 11.7-14.9 [facility] RBC Auto (Bld) [#/Vol]Ordere d By: Rasheed Canela on 12-02-2024 RBC (Bld) [#/Vol] 3.81 10*6/uL Low 4.6-6.2 [facility] RBC Auto (Bld) [#/Vol]Ordere d By: Nickie Danielson on 12-02-2024 RBC (Bld) [#/Vol] 3.52 10*6/uL Low 4.6-6.2 [facility] Serum creatinine measurement (mass/volume)Ordered By: Rasheed Canela on 12-02-2024 Creatinine [Mass/Vol] 2.90 mg/dL High 0.70-1.20 [facility] Serum creatinine measurement (mass/volume)Ordered By: Nickie Danielson on 12-02-2024 Creatinine [Mass/Vol] 2.93 mg/dL High 0.70-1.20 [facility] Serum glucose measurement (m ass/volume)Ordered By: Rasheed Canela on 12-02-2024 Glucose [Mass/Vol] 175 mg/dL High 70- [facility] Serum glucose measurement (m ass/volume)Ordered By: Nickie Danielson on 12-02-2024 Glucose [Mass/Vol] 138 mg/dL High 70-99 [facility] Serum or plasma calcium francine urement (mass/volume)Ordered By: Rasheed Canela on 12-02-2024 Calcium [Mass/Vol] 9.1 mg/dL 7.6-11.0 [facility] Serum or plasma calcium francine urement (mass/volume)Ordered By: Nickie Danielson on 12-02-2024 Calcium [Mass/Vol] 9.3 mg/dL 7.6-11.0 [facility] Serum or plasma urea nitroge n measurement (mass/volume)Ordered By: Rasheed Canela on 12-02-2024 Urea nitrogen [Mass/Vol] 52 mg/dL High - [facility] Serum or plasma urea nitroge n measurement (mass/volume)Ordered By: Nickie Danielson on 12-02-2024 Urea nitrogen [Mass/Vol] 50 mg/dL High 08-19 [facility] Sodium levelOrdered By: Rasheed Canela on 12-02-2024 Sodium [Moles/Vol] 131 mmol/L Low 133-145 [facility] Sodium levelOrdered By: Johanna Danielson on 12-02-2024 Sodium [Moles/Vol] 133 mmol/L 133-145 [facility] Troponin T.cardiac [Mass/vol ume] in Serum or Plasma by High sensitivity methodOrdered By: Rasheed Canela on 12-02-2024 Troponin T.cardiac High sensitivity method [Mass/Vol] > 25715 ng/L High <22 [facility] Troponin T.cardiac High sensitivity method [Mass/Vol] > 29399 ng/L High <22 [facility] White blood cell (WBC) count Ordered By: Rasheed Canela on 12-02-2024 WBC (Bld) [#/Vol] 12.7 10*3/uL High 4.4-11.0 [facility] White blood cell (WBC) count Ordered By: Nickie Danielson on 12-02-2024 WBC (Bld) [#/Vol] 11.2 10*3/uL High 4.4-11.0 [facility] 12 Lead EKGon 12-01-2024 12 Lead EKG Normal [facility] Bedside Glucoseon 12-01-2024 FINGERSTICK GLU 148 mg/dL High 74-106 [facility] Comment on above: Result Comment: WILDA BARROSO OF PATIENT CARE PER NURSING PROTOCOL Performed By: #### L 501.080 ####[facility] [address] [place], [address] FINGERSTICK GLU 203 mg/dL High 74-106 [facility] Comment on above: Result Comment: WILDA GEMENT OF PATIENT CARE PER NURSING PROTOCOL Performed By: #### L 501.080 ####[facility] [address] [place], [address] FINGERSTICK GLU 153 mg/dL High 74-106 [facility] Comment on above: Result Comment: WILDA GEMENT OF PATIENT CARE PER NURSING PROTOCOL Performed By: #### L 501.080 ####[facility] [address] [place], [address] FINGERSTICK GLU 187 mg/dL High 74-106 [facility] Comment on above: Result Comment: WILDA GEMENT OF PATIENT CARE PER NURSING PROTOCOL Performed By: #### L 501.080 ####[facility] [address] [place], [address] FINGERSTICK GLU 223 mg/dL High -106 [facility] Comment on above: Result Comment: WILDA GEMENT OF PATIENT CARE PER NURSING PROTOCOL Performed By: #### L 501.080 ####[facility] [address] [place], [address] Bilirubin, totalOrdered By: Jose Hay on 12-01-2024 Bilirubin [Mass/Vol] 1.07 mg/dL 0.00-1.30 [facility] CBC-Complete Blood Cnt No Di ffon 12-01-2024 Erythrocyte distribution width (RBC) [Ratio] 14.0 % Normal 11.6-14.6 [facility] Comment on above: Performed By: #### L 100.0500, L500.4050 ####[facility] [address] [place], [address] Hematocrit (Bld) [Volume fraction] 33.2 % Low 40-54 [facility] Comment on above: Performed By: #### L 100.0500, L500.4050 ####[facility] [address] [place], [address] Hemoglobin (Bld) [Mass/Vol] 10.8 g/dL Low 13.0-16.5 [facility] Comment on above: Performed By: #### L 100.0500, L500.4050 ####[facility] [address] [place], [address] MCH (RBC) [Entitic mass] 29.3 pg Normal 27.0-32.0 [facility] Comment on above: Performed By: #### L 100.0500, L500.4050 ####[facility] [address] [place], [address] MCHC (RBC) [Mass/Vol] 32.5 g/dL Normal 32-36 [facility] Comment on above: Performed By: #### L 100.0500, L500.4050 ####[facility] [address] [place], [address] MCV (RBC) [Entitic vol] 90.2 fL Normal 80-94 [facility] Comment on above: Performed By: #### L 100.0500, L500.4050 ####[facility] [address] [place], [address] Platelet mean volume (Bld) [Entitic vol] 12.7 fL High 6.2-12.0 [facility] Comment on above: Performed By: #### L 100.0500, L500.4050 ####[facility] [address] [place], [address] Platelets (Bld) [#/Vol] 142 10*3/uL Low 150-450 [facility] Comment on above: Performed By: #### L 100.0500, L500.4050 ####[facility] [address] [place], [address] RBC (Bld) [#/Vol] 3.68 10*6/uL Low 4.6-6.2 [facility] Comment on above: Performed By: #### L 100.0500, L500.4050 ####[facility] [address] [place], [address] RDW SD 45.8 fl High 35.1-43.9 [facility] Comment on above: Performed By: #### L 100.0500, L500.4050 ####[facility] [address] [place], [address] WBC (Bld) [#/Vol] 14.6 10*3/uL High 4.4-11.0 [facility] Comment on above: Performed By: #### L 100.0500, L500.4050 ####[facility] [address] [place], [address] Cardiac rehabilitation repor tOrdered By: Natacha Fermin on 12-01-2024 Study report [facility] Comprehensive Metabolic Prof ilon 12-01-2024 Albumin [Mass/Vol] 3.7 g/dL Normal 3.4-4.8 [facility] Comment on above: Performed By: #### L 100.0500, L500.4050 ####[facility] [address] [place], [address] Albumin/Globulin [Mass ratio] 1.5 {ratio} Normal 0.9-2.4 [facility] Comment on above: Performed By: #### L 100.0500, L500.4050 ####[facility] [address] [place], [address] ALK PHOS 82 U/L Normal 40-129 [facility] Comment on above: Performed By: #### L 100.0500, L500.4050 ####[facility] [address] [place], [address] ALT [Catalytic activity/Vol] 77 U/L High <=46 [facility] Comment on above: Performed By: #### L 100.0500, L500.4050 ####[facility] [address] [place], [address] AST [Catalytic activity/Vol] 497 U/L High <=37 [facility] Comment on above: Performed By: #### L 100.0500, L500.4050 ####[facility] [address] [place], [address] Bilirubin [Mass/Vol] 1.07 mg/dL Normal 0.00-1.30 [facility] Comment on above: Performed By: #### L 100.0500, L500.4050 ####[facility] [address] [place], [address] BUN/CRE 14.2 RATIO Normal 10-20 [facility] Comment on above: Performed By: #### L 100.0500, L500.4050 ####[facility] [address] [place], [address] Calcium [Mass/Vol] 8.7 mg/dL Normal 7.6-11.0 [facility] Comment on above: Performed By: #### L 100.0500, L500.4050 ####[facility] [address] [place], [address] Chloride [Moles/Vol] 100 mmol/L Normal 98-108 [facility] Comment on above: Performed By: #### L 100.0500, L500.4050 ####[facility] [address] [place], [address] CO2 [Moles/Vol] 20.3 mmol/L Low 21.0-32.0 [facility] Comment on above: Performed By: #### L 100.0500, L500.4050 ####[facility] [address] [place], [address] Creatinine [Mass/Vol] 3.16 mg/dL High 0.70-1.20 [facility] Comment on above: Performed By: #### L 100.0500, L500.4050 ####[facility] [address] [place], [address] ECRCL 23.23 ml/min Low 50-250 [facility] Comment on above: Performed By: #### L 100.0500, L500.4050 ####[facility] [address] [place], [address] GAP 14 Normal 5-15 [facility] Comment on above: Performed By: #### L 100.0500, L500.4050 ####[facility] [address] [place], [address] GFR/1.73 sq M.predicted among non-blacks MDRD (S/P/Bld) [Vol rate/Area] 19 mL/min/{1.73_m2} Low >60 [facility] Comment on above: Result Comment: mL/m in/1.73m2 CKD-EPI Creatinine Equation (2020) Performed By: #### L 100.0500, L500.4050 ####[facility] [address] [place], [address] Globulin (S) [Mass/Vol] 2.4 g/dL Normal 2.2-4.2 [facility] Comment on above: Performed By: #### L 100.0500, L500.4050 ####[facility] [address] [place], [address] Glucose [Mass/Vol] 157 mg/dL High 70-99 [facility] Comment on above: Performed By: #### L 100.0500, L500.4050 ####[facility] [address] [place], [address] Potassium [Moles/Vol] 5.0 mmol/L Normal 3.3-5.1 [facility] Comment on above: Performed By: #### L 100.0500, L500.4050 ####[facility] [address] [place], [address] Sodium [Moles/Vol] 134 mmol/L Normal 133-145 [facility] Comment on above: Performed By: #### L 100.0500, L500.4050 ####[facility] [address] [place], [address] T PROT 6.0 g/dL Normal 5.9-8.4 [facility] Comment on above: Performed By: #### L 100.0500, L500.4050 ####[facility] [address] [place], [address] Urea nitrogen [Mass/Vol] 45 mg/dL High 4-19 [facility] Comment on above: Performed By: #### L 100.0500, L500.4050 ####[facility] [address] [place], [address] Echo Limited w/Contraston Echo Limited w/Contrast Normal [facility] Electrocardiogram reportOrde red By: Marcin Araujo on 12-01-2024 EKG study [facility] Work Phone: HH, Hemoglobin AND Hematocri ton 12-01-2024 Hematocrit (Bld) [Volume fraction] 32.7 % Low 40-54 [facility] Comment on above: Performed By: #### L 100.0600 ####[facility] [address] [place], [address] Hemoglobin (Bld) [Mass/Vol] 10.6 g/dL Low 13.0-16.5 [facility] Comment on above: Performed By: #### L 100.0600 ####[facility] [address] [place], [address] Limited echocardiogram repor tOrdered By: Lance Espino [...] on 12-01-2024 Albumin [Mass/Vol] 3.7 g/dL 3.4-4.8 [facility] Serum or plasma albumin/glob ulin mass ratioOrdered By: Jose Hay on 12-01-2024 Albumin/Globulin [Mass ratio] 1.5 {ratio} 0.9-2.4 [facility] Serum or plasma alkaline bell sphatase measurementOrdered By: Jose Hay on 12-01-2024 ALP [Catalytic activity/Vol] 82 U/L 40-129 [facility] Total proteinOrdered By: Emmanuel Hay on 12-01-2024 Protein [Mass/Vol] 6.0 g/dL 5.9-8.4 [facility] 12 Lead EKGon 11-30-2024 12 Lead EKG Normal [facility] ACT Activated Clotting Timeo n 11-30-2024 ACTk CLOT TIME 187 sec High 74-137 [facility] Comment on above: Performed By: #### L 9100.0100 ####[facility] [address] [place], [address] ACTk CLOT TIME 176 sec High 74-137 [facility] Comment on above: Performed By: #### L 9100.0100 ####[facility] [address] [place], [address] Absolute lymphocyte countOrd ered By: Isael Bernabe on 11-30-2024 Lymphocytes Auto (Unsp spec) [#/Vol] 1.93 10*3/uL 0.83-4.51 [facility] Activated partial thrombopla stin time (aPTT) in platelet poor plasma by coagulation aOrdered By: Isael Bernabe on 11-30-2024 aPTT Coag (PPP) [Time] 112.9 s High 24.1-36.[address] [facility] Anion gap in Serum or Plasma Ordered By: Isael Bernabe on 11-30-2024 Anion gap [Moles/Vol] 19 mmol/L High 5-15 [facility] Automated lymphocyte count a s percentage of total leukocytesOrdered By: Isael Bernabe on 11-30-2024 Lymphocytes/100 WBC Auto (Unsp spec) 10.1 % Low 19-41 [facility] BUN/creatinine ratioOrdered By: Isael Bernabe on 11-30-2024 Urea nitrogen/Creatinine [Mass ratio] 14.4 mg/mg 10-20 [facility] Basic Metabolic Profile (BMP )on 11-30-2024 BUN/CRE 14.4 RATIO Normal - [facility] Comment on above: Performed By: #### L 300.4310, L501.4021, L300.3900, L100.0100, L500.2500 ####[facility] [address] [place], [address] Calcium [Mass/Vol] 9.5 mg/dL Normal 7.6-11.0 [facility] Comment on above: Performed By: #### L 300.4310, L501.4021, L300.3900, L100.0100, L500.2500 ####[facility] [address] [place], [address] Chloride [Moles/Vol] 98 mmol/L Normal 98-108 [facility] Comment on above: Performed By: #### L 300.4310, L501.4021, L300.3900, L100.0100, L500.2500 ####[facility] [address] [place], [address] CO2 [Moles/Vol] 18.3 mmol/L Low 21.0-32.0 [facility] Comment on above: Performed By: #### L 300.4310, L501.4021, L300.3900, L100.0100, L500.2500 ####[facility] [address] [place], [address] Creatinine [Mass/Vol] 3.10 mg/dL High 0.70-1.20 [facility] Comment on above: Performed By: #### L 300.4310, L501.4021, L300.3900, L100.0100, L500.2500 ####[facility] [address] [place], [address] GAP 19 High 5-15 [facility] Comment on above: Performed By: #### L 300.4310, L501.4021, L300.3900, L100.0100, L500.2500 ####[facility] [address] [place], [address] GFR/1.73 sq M.predicted among non-blacks MDRD (S/P/Bld) [Vol rate/Area] 20 mL/min/{1.73_m2} Low >60 [facility] Comment on above: Result Comment: mL/m in/1.73m2 CKD-EPI Creatinine Equation (2020) Performed By: #### L 300.4310, L501.4021, L300.3900, L100.0100, L500.2500 ####[facility] [address] [place], [address] Glucose [Mass/Vol] 328 mg/dL High 70-99 [facility] Comment on above: Performed By: #### L 300.4310, L501.4021, L300.3900, L100.0100, L500.2500 ####[facility] [address] [place], [address] Potassium [Moles/Vol] 4.4 mmol/L Normal 3.3-5.1 [facility] Comment on above: Performed By: #### L 300.4310, L501.4021, L300.3900, L100.0100, L500.2500 ####[facility] [address] [place], [address] Sodium [Moles/Vol] 135 mmol/L Normal 133-145 [facility] Comment on above: Performed By: #### L 300.4310, L501.4021, L300.3900, L100.0100, L500.2500 ####[facility] [address] [place], [address] Urea nitrogen [Mass/Vol] 45 mg/dL High 4-19 [facility] Comment on above: Performed By: #### L 300.4310, L501.4021, L300.3900, L100.0100, L500.2500 ####[facility] [address] [place], [address] Basophil percentageOrdered B y: Isael Bernabe on 11-30-2024 Basophils/100 WBC (Bld) 0.2 % 0-1 [facility] Bedside Glucoseon 11-30-2024 FINGERSTICK GLU 167 mg/dL High 74-106 [facility] Comment on above: Result Comment: WILDA BARROSO OF PATIENT CARE PER NURSING PROTOCOL Performed By: #### L 501.080 ####[facility] [address] [place], [address] CBC W/Diff, Automatedon - Absolute Lymph 1.93 X10 3/uL Normal 0.83-4.51 [facility] Comment on above: Performed By: #### L 300.4310, L501.4021, L300.3900, L100.0100, L500.2500 ####[facility] [address] [place], [address] Absolute Neut 15.5 X10 3/uL High 2.0-7.7 [facility] Comment on above: Performed By: #### L 300.4310, L501.4021, L300.3900, L100.0100, L500.2500 ####[facility] [address] [place], [address] Basophils/100 WBC (Bld) 0.2 % Normal 0-1 [facility] Comment on above: Performed By: #### L 300.4310, L501.4021, L300.3900, L100.0100, L500.2500 ####[facility] [address] [place], [address] Eosinophils/100 WBC (Bld) 0.4 % Normal 0-5 [facility] Comment on above: Performed By: #### L 300.4310, L501.4021, L300.3900, L100.0100, L500.2500 ####[facility] [address] [place], [address] Erythrocyte distribution width (RBC) [Ratio] 13.5 % Normal 11.6-14.6 [facility] Comment on above: Performed By: #### L 300.4310, L501.4021, L300.3900, L100.0100, L500.2500 ####[facility] [address] [place], [address] Hematocrit (Bld) [Volume fraction] 39.6 % Low 40-54 [facility] Comment on above: Performed By: #### L 300.4310, L501.4021, L300.3900, L100.0100, L500.2500 ####[facility] [address] [place], [address] Hemoglobin (Bld) [Mass/Vol] 12.5 g/dL Low 13.0-16.5 [facility] Comment on above: Performed By: #### L 300.4310, L501.4021, L300.3900, L100.0100, L500.2500 ####[facility] [address] [place], [address] IG% 0.700 Normal 0.0-0.9 [facility] Comment on above: Result Comment: IG% - Immature Granulocytes (promyelocytes, myelocytes andmetamyelocytes) > 1% indicates that a LEFT SHIFT is Present. Performed By: #### L 300.4310, L501.4021, L300.3900, L100.0100, L500.2500 ####[facility] [address] [place], [address] Lymphocytes/100 WBC (Bld) 10.1 % Low 19-41 [facility] Comment on above: Performed By: #### L 300.4310, L501.4021, L300.3900, L100.0100, L500.2500 ####[facility] [address] [place], [address] MCH (RBC) [Entitic mass] 29.3 pg Normal 27.0-32.0 [facility] Comment on above: Performed By: #### L 300.4310, L501.4021, L300.3900, L100.0100, L500.2500 ####[facility] [address] [place], [address] MCHC (RBC) [Mass/Vol] 31.6 g/dL Low 32-36 [facility] Comment on above: Performed By: #### L 300.4310, L501.4021, L300.3900, L100.0100, L500.2500 ####[facility] [address] [place], [address] MCV (RBC) [Entitic vol] 93.0 fL Normal 80-94 [facility] Comment on above: Performed By: #### L 300.4310, L501.4021, L300.3900, L100.0100, L500.2500 ####[facility] [address] [place], [address] Monocytes/100 WBC (Bld) 7.7 % Normal 0-10 [facility] Comment on above: Performed By: #### L 300.4310, L501.4021, L300.3900, L100.0100, L500.2500 ####[facility] [address] [place], [address] Neutrophils/100 WBC (Bld) 80.9 % High 47-70 [facility] Comment on above: Performed By: #### L 300.4310, L501.4021, L300.3900, L100.0100, L500.2500 ####[facility] [address] [place], [address] Nucleated RBC (Bld) [#/Vol] 0.1 10*3/uL Normal 0-5 [facility] Comment on above: Performed By: #### L 300.4310, L501.4021, L300.3900, L100.0100, L500.2500 ####[facility] [address] [place], [address] Platelet mean volume (Bld) [Entitic vol] 13.7 fL High 6.2-12.0 [facility] Comment on above: Performed By: #### L 300.4310, L501.4021, L300.3900, L100.0100, L500.2500 ####[facility] [address] [place], [address] Platelets (Bld) [#/Vol] 168 10*3/uL Normal 150-450 [facility] Comment on above: Performed By: #### L 300.4310, L501.4021, L300.3900, L100.0100, L500.2500 ####[facility] [address] [place], [address] RBC (Bld) [#/Vol] 4.26 10*6/uL Low 4.6-6.2 [facility] Comment on above: Performed By: #### L 300.4310, L501.4021, L300.3900, L100.0100, L500.2500 ####[facility] [address] [place], [address] RDW SD 45.9 fl High 35.1-43.9 [facility] Comment on above: Performed By: #### L 300.4310, L501.4021, L300.3900, L100.0100, L500.2500 ####[facility] [address] [place], [address] WBC (Bld) [#/Vol] 19.2 10*3/uL High 4.4-11.0 [facility] Comment on above: Performed By: #### L 300.4310, L501.4021, L300.3900, L100.0100, L500.2500 ####[facility] [address] [place], [address] CBC-Complete Blood Cnt No Di ffon 11-30-2024 HCT Normal 40-54 [facility] Comment on above: Result Comment: NO S PECIMEN COLLECTED Performed By: #### L 100.0500 ####[facility] [address] [place], [address] HGB Normal 13.0-16.5 [facility] Comment on above: Result Comment: NO S PECIMEN COLLECTED Performed By: #### L 100.0500 ####[facility] [address] [place], [address] MCH Normal 27.0-32.0 [facility] Comment on above: Result Comment: NO S PECIMEN COLLECTED Performed By: #### L 100.0500 ####[facility] [address] [place], [address] MCHC Normal 32-36 [facility] Comment on above: Result Comment: NO S PECIMEN COLLECTED Performed By: #### L 100.0500 ####[facility] [address] [place], [address] MCV Normal 80-94 [facility] Comment on above: Result Comment: NO S PECIMEN COLLECTED Performed By: #### L 100.0500 ####[facility] [address] [place], [address] PLT Normal 150-450 [facility] Comment on above: Result Comment: NO S PECIMEN COLLECTED Performed By: #### L 100.0500 ####[facility] [address] [place], [address] RBC Normal 4.6-6.2 [facility] Comment on above: Result Comment: NO S PECIMEN COLLECTED Performed By: #### L 100.0500 ####[facility] [address] [place], [address] RDW CV Normal 11.6-14.6 [facility] Comment on above: Result Comment: NO S PECIMEN COLLECTED Performed By: #### L 100.0500 ####[facility] [address] [place], [address] RDW SD Normal 35.1-43.9 [facility] Comment on above: Result Comment: NO S PECIMEN COLLECTED Performed By: #### L 100.0500 ####[facility] [address] [place], [place], [address] WBC Normal 4.4-11.0 [facility] Comment on above: Result Comment: NO S PECIMEN COLLECTED Performed By: #### L 100.0500 ####[facility] [address] [place], [place], [address] Carbon dioxide, total [Moles /volume] in Central venous bloodOrdered By: Isael Bernabe on 11-30-2024 CO2 [Moles/Vol] 18.3 mmol/L Low 21.0-32.0 [facility] Chest 1 View (Portable)on Chest 1 View (Portable) Normal [facility] Chloride assayOrdered By: Jaylen Bernabe on 11-30-2024 Chloride [Moles/Vol] 98 mmol/L 98-108 [facility] Consultation - Cardiologyon 11-30-2024 Consultation - [...] H&P Exam - Hospitalist Normal [facility] Hematocrit Auto (Bld) [Volum e fraction]Ordered By: Isael Bernabe on 2025 Hematocrit (Bld) [Volume fraction] 39.6 % Low 40-54 [facility] Hemoglobin A1con 11-30-2024 HbA1c (Bld) [Mass fraction] 7.0 % High <=5.6 [facility] Comment on above: Result Comment: Norm al < 5.7 % Prediabetic 5.7 - 6.4 % Diabetic >or= 6.5 % Please note range changes. Performed By: #### L 501.9995 ####[facility] [address] [place], [place], [address] Hemoglobin A1c percentageOrd ered By: Abraham Ridley [...] L501.4021, L300.3900, L100.0100, L500.2500 ####[facility] [address] [place], [place], [address] MCV (mean corpuscular volume ) determinationOrdered By: Isael Bernabe on 11-30-2024 MCV (RBC) [Entitic vol] 93.0 fL 80-94 [facility] MR/QUALITYon 11-30-2024 MR/QUALITY Normal [facility] Mean corpuscular hemoglobin (MCH) determinationOrdered By: Isael Bernabe on 11-30-2024 MCH (RBC) [Entitic mass] 29.3 pg 27.0-32.0 [facility] Monocyte percentageOrdered B y: Isael Alexjose on 11-30-2024 Monocytes/100 WBC (Bld) 7.7 % 0-10 [facility] Neutrophil percentageOrdered By: Isael Alexjose on 11-30-2024 Neutrophils/100 WBC (Bld) 80.9 % High 47-70 [facility] Partial Thromboplast Timeon 11-30-2024 aPTT Coag (Bld) [Time] 112.9 s Invalid Interpretation Code 24.1-36.2 [facility] Comment on above: Result Comment: CRIT ICAL VALUE CALLED TO CAITLIN ARASH11/30/24 1720 Krysta Turcios.RESULTS READ BACK BY SAME. Performed By: #### L 300.4310, L501.4021, L300.3900, L100.0100, L500.2500 ####[facility] [address] [place], [place], [address] Platelet countOrdered By: Jaylen Bernabe on 11-30-2024 [...] L501.4021, L300.3900, L100.0100, L500.2500 ####[facility] [address] [place], [place], [address] PT Coag (PPP) [Time] 16.1 s High 11.7-14.9 [facility] Comment on above: Performed By: #### L 300.4310, L501.4021, L300.3900, L100.0100, L500.2500 ####[facility] [address] [place], [address] Prothrombin timeOrdered By: Isael Monteslee ann on 11-30-2024 PT Coag (PPP) [Time] 16.1 s High 11.7-14.9 [facility] RBC Auto (Bld) [#/Vol]Ordere d By: Isael Bernabe on 11-30-2024 RBC (Bld) [#/Vol] 4.26 10*6/uL Low 4.6-6.2 [facility] Serum creatinine measurement (mass/volume)Ordered By: Isael Bernabe on 11-30-2024 Creatinine [Mass/Vol] 3.10 mg/dL High 0.70-1.20 [facility] Serum glucose measurement (m ass/volume)Ordered By: Isael Bernabe on 11-30-2024 Glucose [Mass/Vol] 328 mg/dL High 70-99 [facility] Serum or plasma calcium francine urement (mass/volume)Ordered By: Isael Bernabe on 11-30-2024 Calcium [Mass/Vol] 9.5 mg/dL 7.6-11.0 [facility] Serum or plasma urea nitroge n measurement (mass/volume)Ordered By: Isael Bernabe on 11-30-2024 Urea nitrogen [Mass/Vol] 45 mg/dL High 4-19 [facility] Sodium levelOrdered By: Isael Bernabe on 11-30-2024 Sodium [Moles/Vol] 135 mmol/L 133-145 [facility] Troponin T HS 2 HRon 025 Trop T High Sen Normal <=22 [facility] Comment on above: Result Comment: Edy elled via OM: Ordered Performed By: #### L 499.0042 ####[facility] [address] [place], [place], [address] Troponin T HS 4 HRon 025 Trop T High Sen Normal <=22 [facility] Comment on above: Result Comment: Edy crews via OM: Ordered Performed By: #### L 499.0043 ####[facility] [address] [place], [address] Troponin T.cardiac [Mass/vol ume] in Serum or Plasma by High sensitivity methodOrdered By: Isael Bernabe on 11-30-2024 Troponin T.cardiac High sensitivity method [Mass/Vol] 61 ng/L High <22 [facility] White blood cell (WBC) count Ordered By: Isael Bernabe on 11-30-2024 WBC (Bld) [#/Vol] 19.2 10*3/uL High 4.4-11.0 [facility] ACT Activated Clotting Timeo n 11-28-2024 ACTk CLOT TIME 205 sec High 74-137 [facility] Comment on above: Performed By: #### L 9100.0100 ####[facility] [address] [place], [place], [address] ACTk CLOT TIME 227 sec High 74-137 [facility] Comment on above: Performed By: #### L 9100.0100 ####[facility] [address] [place], [place], [address] Anion gap in Serum or Plasma Ordered By: Jose Hay on 11-28-2024 Anion gap [Moles/Vol] 13 mmol/L 5-15 [facility] BUN/creatinine ratioOrdered By: Jose Hay on 11-28-2024 Urea nitrogen/Creatinine [Mass ratio] 15.2 mg/mg 10-20 [facility] Bilirubin, totalOrdered By: Jose Hay on 11-28-2024 Bilirubin [Mass/Vol] 0.78 mg/dL 0.00-1.30 [facility] CBC-Complete Blood Cnt No Di ffon 11-28-2024 Erythrocyte distribution width (RBC) [Ratio] 13.6 % Normal 11.6-14.6 [facility] Comment on above: Performed By: #### L 500.4050, L100.0500 ####[facility] [address] [place], [place], [id number] Hematocrit (Bld) [Volume fraction] 35.3 % Low 40-54 [facility] Comment on above: Performed By: #### L 500.4050, L100.0500 ####[facility] [address] [place], [address] Hemoglobin (Bld) [Mass/Vol] 11.3 g/dL Low 13.0-16.5 [facility] Comment on above: Performed By: #### L 500.4050, L100.0500 ####[facility] [address] [place], [address] MCH (RBC) [Entitic mass] 29.4 pg Normal 27.0-32.0 [facility] Comment on above: Performed By: #### L 500.4050, L100.0500 ####[facility] [address] [place], [address] MCHC (RBC) [Mass/Vol] 32.0 g/dL Normal 32-36 [facility] Comment on above: Performed By: #### L 500.4050, L100.0500 ####[facility] [address] [place], [address] MCV (RBC) [Entitic vol] 91.7 fL Normal 80-94 [facility] Comment on above: Performed By: #### L 500.4050, L100.0500 ####[facility] [address] [place], [address] Platelet mean volume (Bld) [Entitic vol] 12.6 fL High 6.2-12.0 [facility] Comment on above: Performed By: #### L 500.4050, L100.0500 ####[facility] [address] [place], [address] Platelets (Bld) [#/Vol] 108 10*3/uL Low 150-450 [facility] Comment on above: Performed By: #### L 500.4050, L100.0500 ####[facility] [address] [place], [address] RBC (Bld) [#/Vol] 3.85 10*6/uL Low 4.6-6.2 [facility] Comment on above: Performed By: #### L 500.4050, L100.0500 ####[facility] [address] [place], [address] RDW SD 46.1 fl High 35.1-43.9 [facility] Comment on above: Performed By: #### L 500.4050, L100.0500 ####[facility] [address] [place], [address] WBC (Bld) [#/Vol] 7.1 10*3/uL Normal 4.4-11.0 [facility] Comment on above: Performed By: #### L 500.4050, L100.0500 ####[facility] [address] [place], [address] Carbon dioxide, total [Moles /volume] in Central venous bloodOrdered By: Jose Hay on 11-28-2024 CO2 [Moles/Vol] 23.7 mmol/L 21.0-32.0 [facility] Chloride assayOrdered By: Harsh Hay on 11-28-2024 Chloride [Moles/Vol] 102 mmol/L 98-108 [facility] Comprehensive Metabolic Prof ilon 11-28-2024 Albumin [Mass/Vol] 3.8 g/dL Normal 3.4-4.8 [facility] Comment on above: Performed By: #### L 500.4050, L100.0500 ####[facility] [address] [place], [address] Albumin/Globulin [Mass ratio] 1.4 {ratio} Normal 0.9-2.4 [facility] Comment on above: Performed By: #### L 500.4050, L100.0500 ####[facility] [address] [place], [address] ALK PHOS 93 U/L Normal 40-129 [facility] Comment on above: Performed By: #### L 500.4050, L100.0500 ####[facility] [address] [place], [address] ALT [Catalytic activity/Vol] 27 U/L Normal <=46 [facility] Comment on above: Result Comment: Hemo lysis present, Results??could be affected.?? Performed By: #### L 500.4050, L100.0500 ####[facility] [address] [place], [address] AST [Catalytic activity/Vol] 33 U/L Normal <=37 [facility] Comment on above: Result Comment: Hemo lysis present, Results??could be affected.?? Performed By: #### L 500.4050, L100.0500 ####[facility] [address] [place], [address] Bilirubin [Mass/Vol] 0.78 mg/dL Normal 0.00-1.30 [facility] Comment on above: Performed By: #### L 500.4050, L100.0500 ####[facility] [address] [place], [address] BUN/CRE 15.2 RATIO Normal 10-20 [facility] Comment on above: Performed By: #### L 500.4050, L100.0500 ####[facility] [address] [place], [address] Calcium [Mass/Vol] 9.2 mg/dL Normal 7.6-11.0 [facility] Comment on above: Performed By: #### L 500.4050, L100.0500 ####[facility] [address] [place], [address] Chloride [Moles/Vol] 102 mmol/L Normal 98-108 [facility] Comment on above: Performed By: #### L 500.4050, L100.0500 ####[facility] [address] [place], [address] CO2 [Moles/Vol] 23.7 mmol/L Normal 21.0-32.0 [facility] Comment on above: Performed By: #### L 500.4050, L100.0500 ####[facility] [address] [place], [address] Creatinine [Mass/Vol] 1.93 mg/dL High 0.70-1.20 [facility] Comment on above: Performed By: #### L 500.4050, L100.0500 ####[facility] [address] [place], [address] ECRCL 37.66 ml/min Low 50-250 [facility] Comment on above: Performed By: #### L 500.4050, L100.0500 ####[facility] [address] [place], [address] GAP 13 Normal 5-15 [facility] Comment on above: Performed By: #### L 500.4050, L100.0500 ####[facility] [address] [place], [address] GFR/1.73 sq M.predicted among non-blacks MDRD (S/P/Bld) [Vol rate/Area] 35 mL/min/{1.73_m2} Low >60 [facility] Comment on above: Result Comment: mL/m in/1.73m2 CKD-EPI Creatinine Equation (2020) Performed By: #### L 500.4050, L100.0500 ####[facility] [address] [place], [address] Globulin (S) [Mass/Vol] 2.8 g/dL Normal 2.2-4.2 [facility] Comment on above: Performed By: #### L 500.4050, L100.0500 ####[facility] [address] [place], [address] Glucose [Mass/Vol] 130 mg/dL High 70-99 [facility] Comment on above: Performed By: #### L 500.4050, L100.0500 ####[facility] [address] [place], [address] Potassium [Moles/Vol] 4.4 mmol/L Normal 3.3-5.1 [facility] Comment on above: Result Comment: Hemo lysis present, Results??could be affected.?? Performed By: #### L 500.4050, L100.0500 ####[facility] [address] [place], [address] Sodium [Moles/Vol] 139 mmol/L Normal 133-145 [facility] Comment on above: Performed By: #### L 500.4050, L100.0500 ####[facility] [address] [place], [address] T PROT 6.6 g/dL Normal 5.9-8.4 [facility] Comment on above: Performed By: #### L 500.4050, L100.0500 ####[facility] [address] [place], [address] Urea nitrogen [Mass/Vol] 29 mg/dL High 4-19 [facility] Comment on above: Performed By: #### L 500.4050, L100.0500 ####[facility] [address] [place], [address] Erythrocyte distribution wid th ratioOrdered By: Jose [...] Center Mean corpuscular hemoglobin (MCH) determinationOrdered By: Josejina [...] RBC (Bld) [#/Vol] 3.85 10*6/uL Low 4.6-6.2 [facility] Serum creatinine measurement (mass/volume)Ordered By: Jose Hay on 11-28-2024 Creatinine [Mass/Vol] 1.93 mg/dL High 0.70-1.20 [facility] Serum globulin measurementOr dered By: Jose Hay on 11-28-2024 Globulin (S) [Mass/Vol] 2.8 g/dL 2.2-4.2 [facility] Serum glucose measurement (m ass/volume)Ordered By: Jose Hay on 11-28-2024 Glucose [Mass/Vol] 130 mg/dL High 70-99 [facility] Serum or plasma alanine guerrero otransferase (ALT) measurementOrdered By: Jose Hay on 11-28-2024 ALT [Catalytic activity/Vol] 27 U/L <47 [facility] Serum or plasma albumin francine urement (mass/volume)Ordered By: Jose Hay on 11-28-2024 Albumin [Mass/Vol] 3.8 g/dL 3.4-4.8 [facility] Serum or plasma albumin/glob ulin mass ratioOrdered By: Jose Hay on 11-28-2024 Albumin/Globulin [Mass ratio] 1.4 {ratio} 0.9-2.4 [facility] Serum or plasma alkaline bell sphatase measurementOrdered By: Jose Hay on 11-28-2024 ALP [Catalytic activity/Vol] 93 U/L 40-129 [facility] Serum or plasma calcium francine urement (mass/volume)Ordered By: Jose Hay on 11-28-2024 Calcium [Mass/Vol] 9.2 mg/dL 7.6-11.0 [facility] Serum or plasma urea nitroge n measurement (mass/volume)Ordered By: Jose Hay on 11-28-2024 Urea nitrogen [Mass/Vol] 29 mg/dL High 4-19 [facility] Sodium levelOrdered By: Ernst Hay on 11-28-2024 Sodium [Moles/Vol] 139 mmol/L 133-145 [facility] Total proteinOrdered By: Emmanuel Hay on 11-28-2024 Protein [Mass/Vol] 6.6 g/dL 5.9-8.4 [facility] White blood cell (WBC) count Ordered By: Jose Hay on 11-28-2024 WBC (Bld) [#/Vol] 7.1 10*3/uL 4.4-11.0 [facility] 12 Lead EKGon 11-27-2024 12 Lead EKG Normal [facility] Cardiac rehabilitation repor tOrdered By: Karrie Arceo on 11-27-2024 Study report [facility] Discharge Instructionon 07-2 Discharge Instruction Normal [facility] 12 Lead EKGon 11-26-2024 12 Lead EKG Normal [facility] Absolute lymphocyte countOrd ered By: Isael Bernabe on 11-26-2024 Lymphocytes Auto (Unsp spec) [#/Vol] 1.53 10*3/uL 0.83-4.51 [facility] Anion gap in Serum or Plasma Ordered By: Isael Bernabe on 11-26-2024 Anion gap [Moles/Vol] 15 mmol/L 5-15 [facility] Automated [...] 500.2500, L100.0100, L501.4021, L503.7505 ####[facility] [address] [place], [address] Calcium [Mass/Vol] 9.2 mg/dL Normal 7.6-11.0 [facility] Comment on above: Performed By: #### L 500.2500, L100.0100, L501.4021, L503.7505 ####[facility] [address] [place], [address] Chloride [Moles/Vol] 100 mmol/L Normal 98-108 [facility] Comment on above: Performed By: #### L 500.2500, L100.0100, L501.4021, L503.7505 ####[facility] [address] [place], [address] CO2 [Moles/Vol] 21.5 mmol/L Normal 21.0-32.0 [facility] [facility] Comment on above: Performed By: #### L 500.2500, L100.0100, L501.4021, L503.7505 ####[facility] [address] [place], [address] Creatinine [Mass/Vol] 2.34 mg/dL High 0.70-1.20 [facility] Comment on above: Performed By: #### L 500.2500, L100.0100, L501.4021, L503.7505 ####[facility] [address] [place], [address] ECRCL 31.97 ml/min Low 50-250 [facility] Comment on above: Performed By: #### L 500.2500, L100.0100, L501.4021, L503.7505 ####[facility] [address] [place], [address] GAP 15 Normal 5-15 [facility] Comment on above: Performed By: #### L 500.2500, L100.0100, L501.4021, L503.7505 ####[facility] [address] [place], [address] GFR/1.73 sq M.predicted among non-blacks MDRD (S/P/Bld) [Vol rate/Area] 28 mL/min/{1.73_m2} Low >60 [facility] Comment on above: Result Comment: mL/m in/1.73m2 CKD-EPI Creatinine Equation (2020) Performed By: #### L 500.2500, L100.0100, L501.4021, L503.7505 ####[facility] [address] [place], [address] Glucose [Mass/Vol] 275 mg/dL High 70-99 [facility] Comment on above: Performed By: #### L 500.2500, L100.0100, L501.4021, L503.7505 ####[facility] [address] [place], [address] Potassium [Moles/Vol] 4.4 mmol/L Normal 3.3-5.1 [facility] Comment on above: Performed By: #### L 500.2500, L100.0100, L501.4021, L503.7505 ####[facility] [address] [place], [address] Sodium [Moles/Vol] 137 mmol/L Normal 133-145 [facility] Comment on above: Performed By: #### L 500.2500, L100.0100, L501.4021, L503.7505 ####[facility] [address] [place], [address] Urea nitrogen [Mass/Vol] 43 mg/dL High 4-19 [facility] Comment on above: Performed By: #### L 500.2500, L100.0100, L501.4021, L503.7505 ####[facility] [address] [place], [address] Basophil percentageOrdered B y: Isael Bernabe on 11-26-2024 Basophils/100 WBC (Bld) 0.3 % 0-1 [facility] Brain/Head without Contrasto n 11-26-2024 Brain/Head without Contrast Normal [facility] CBC W/Diff, Automatedon - Absolute Lymph 1.53 X10 3/uL Normal 0.83-4.51 [facility] Comment on above: Performed By: #### L 500.2500, L100.0100, L501.4021, L503.7505 ####[facility] [address] [place], [address] Absolute Neut 6.6 X10 3/uL Normal 2.0-7.7 [facility] Comment on above: Performed By: #### L 500.2500, L100.0100, L501.4021, L503.7505 ####[facility] [address] [place], [address] Basophils/100 WBC (Bld) 0.3 % Normal 0-1 [facility] Comment on above: Performed By: #### L 500.2500, L100.0100, L501.4021, L503.7505 ####[facility] [address] [place], [address] Eosinophils/100 WBC (Bld) 1.3 % Normal 0-5 [facility] Comment on above: Performed By: #### L 500.2500, L100.0100, L501.4021, L503.7505 ####[facility] [address] [place], [address] Erythrocyte distribution width (RBC) [Ratio] 13.9 % Normal 11.6-14.6 [facility] Comment on above: Performed By: #### L 500.2500, L100.0100, L501.4021, L503.7505 ####[facility] [address] [place], [address] Hematocrit (Bld) [Volume fraction] 36.7 % Low 40-54 [facility] Comment on above: Performed By: #### L 500.2500, L100.0100, L501.4021, L503.7505 ####[facility] [address] [place], [address] Hemoglobin (Bld) [Mass/Vol] 11.8 g/dL Low 13.0-16.5 [facility] Comment on above: Performed By: #### L 500.2500, L100.0100, L501.4021, L503.7505 ####[facility] [address] [place], [address] IG% 0.400 Normal 0.0-0.9 [facility] Comment on above: Result Comment: IG% - Immature Granulocytes (promyelocytes, myelocytes andmetamyelocytes) > 1% indicates that a LEFT SHIFT is Present. Performed By: #### L 500.2500, L100.0100, L501.4021, L503.7505 ####[facility] [address] [place], [address] Lymphocytes/100 WBC (Bld) 16.7 % Low 19-41 [facility] Comment on above: Performed By: #### L 500.2500, L100.0100, L501.4021, L503.7505 ####[facility] [address] [place], [address] MCH (RBC) [Entitic mass] 29.2 pg Normal 27.0-32.0 [facility] Comment on above: Performed By: #### L 500.2500, L100.0100, L501.4021, L503.7505 ####[facility] [address] [place], [address] MCHC (RBC) [Mass/Vol] 32.2 g/dL Normal 32-36 [facility] Comment on above: Performed By: #### L 500.2500, L100.0100, L501.4021, L503.7505 ####[facility] [address] [place], [address] MCV (RBC) [Entitic vol] 90.8 fL Normal 80-94 [facility] Comment on above: Performed By: #### L 500.2500, L100.0100, L501.4021, L503.7505 ####[facility] [address] [place], [address] Monocytes/100 WBC (Bld) 9.5 % Normal 0-10 [facility] Comment on above: Performed By: #### L 500.2500, L100.0100, L501.4021, L503.7505 ####[facility] [address] [place], [address] Neutrophils/100 WBC (Bld) 71.8 % High 47-70 [facility] Comment on above: Performed By: #### L 500.2500, L100.0100, L501.4021, L503.7505 ####[facility] [address] [place], [address] Nucleated RBC (Bld) [#/Vol] 0 10*3/uL Normal 0-5 [facility] Comment on above: Performed By: #### L 500.2500, L100.0100, L501.4021, L503.7505 ####[facility] [address] [place], [address] Platelet mean volume (Bld) [Entitic vol] 12.8 fL High 6.2-12.0 [facility] Comment on above: Performed By: #### L 500.2500, L100.0100, L501.4021, L503.7505 ####[facility] [address] [place], [address] Platelets (Bld) [#/Vol] 132 10*3/uL Low 150-450 [facility] Comment on above: Performed By: #### L 500.2500, L100.0100, L501.4021, L503.7505 ####[facility] [address] [place], [address] RBC (Bld) [#/Vol] 4.04 10*6/uL Low 4.6-6.2 [facility] Comment on above: Performed By: #### L 500.2500, L100.0100, L501.4021, L503.7505 ####[facility] [address] [place], [address] RDW SD 46.6 fl High 35.1-43.9 [facility] Comment on above: Performed By: #### L 500.2500, L100.0100, L501.4021, L503.7505 ####[facility] [address] [place], [address] WBC (Bld) [#/Vol] 9.2 10*3/uL Normal 4.4-11.0 [facility] Comment on above: Performed By: #### L 500.2500, L100.0100, L501.4021, L503.7505 ####[facility] [address] [place], [address] Carbon dioxide, total [Moles /volume] in Central venous bloodOrdered By: Isael Bernabe on 11-26-2024 CO2 [Moles/Vol] 21.5 mmol/L 21.0-32.0 [facility] Chest 1 View (Portable)on Chest 1 View (Portable) Normal [facility] Chloride assayOrdered By: Jaylen Bernabe on 11-26-2024 Chloride [Moles/Vol] 100 mmol/L 98-108 [facility] Emergency Department Summary on 11-26-2024 Emergency [...] 3 Viewson Hand Min 3 Views [facility] [...] 11-26 Knee 4 or More Views Normal [facility] Knee 4 or More Views Normal [facility] L501.4021on 11-26-2024 Trop T High Sen 18 ng/L Normal <=22 [facility] Comment on above: Performed By: #### L 500.2500, L100.0100, L501.4021, L503.7505 ####[facility] [address] [place], [address] MCV (mean corpuscular volume ) determinationOrdered By: Isael Bernabe on 11-26-2024 MCV (RBC) [Entitic vol] 90.8 fL 80-94 [facility] Mean corpuscular hemoglobin (MCH) determinationOrdered By: Isael Bernabe on 11-26-2024 MCH (RBC) [Entitic mass] 29.2 pg 27.0-32.0 [facility] Monocyte percentageOrdered B y: sIael Bernabe on 11-26-2024 Monocytes/100 WBC (Bld) 9.5 [...] 500.2500, L100.0100, L501.4021, L503.7505 ####[facility] [address] [place], [address] RBC Auto (Bld) [#/Vol]Ordere d By: Isael Bernabe on 11-26-2024 RBC (Bld) [#/Vol] 4.04 10*6/uL Low 4.6-6.2 [facility] Serum creatinine measurement (mass/volume)Ordered By: Isael Bernabe on 11-26-2024 Creatinine [Mass/Vol] 2.34 mg/dL High 0.70-1.20 [facility] Serum glucose measurement (m ass/volume)Ordered By: Isael Bernabe on 11-26-2024 Glucose [Mass/Vol] 275 mg/dL High 70-99 [facility] Serum or plasma calcium francine urement (mass/volume)Ordered By: Isael Bernabe on 11-26-2024 Calcium [Mass/Vol] 9.2 mg/dL 7.6-11.0 [facility] Serum or plasma urea nitroge n measurement (mass/volume)Ordered By: Isael Bernabe on 11-26-2024 Urea nitrogen [Mass/Vol] 43 mg/dL High 4-19 [facility] Sodium levelOrdered By: Isael Bernabe on 11-26-2024 Sodium [Moles/Vol] 137 mmol/L 133-145 [facility] Spine Cervical without Contr ason 11-26-2024 Spine Cervical without Contras Normal [facility] Troponin T HS 2 HRon 025 Trop T High Sen 20 ng/L Normal <=22 [facility] Comment on above: Performed By: #### L 499.0042 ####[facility] [address] [place], [place], [address] Troponin T HS 4 HRon 025 Trop T High Sen Normal <=22 [facility] Comment on above: Result Comment: Canc elled via OM: Order cancelled - Patient discharged Performed By: #### L 499.0043 ####[facility] [address] [place], [place], [address] Troponin T.cardiac [Mass/vol ume] in Serum or Plasma by High sensitivity methodOrdered By: Isael Bernabe on 11-26-2024 Troponin T.cardiac High sensitivity method [Mass/Vol] 20 ng/L <22 [facility] Troponin T.cardiac High sensitivity method [Mass/Vol] 18 ng/L <22 [facility] White blood cell (WBC) count Ordered By: Isael Bernabe on 11-26-2024 WBC (Bld) [#/Vol] 9.2 10*3/uL 4.4-11.0 [facility] Absolute lymphocyte countOrd ered By: Gustabo Pérez on 11-22-2024 Lymphocytes Auto (Unsp spec) [#/Vol] 1.37 10*3/uL 0.83-4.51 [facility] Anion gap in Serum or Plasma Ordered By: Gustabo Pérez on 11-22-2024 Anion gap [Moles/Vol] 15 mmol/L 5-15 [facility] Automated lymphocyte count a s percentage of total leukocytesOrdered By: Gustabo Pérez on 11-22-2024 Lymphocytes/100 WBC Auto (Unsp spec) 16.1 % Low 19-41 [facility] BUN/creatinine ratioOrdered By: Gustabo Pérez on 11-22-2024 Urea nitrogen/Creatinine [Mass ratio] 15.6 mg/mg 10-20 [facility] Basic Metabolic Profile (BMP )on 11-22-2024 BUN/CRE 15.6 RATIO Normal 10-20 [facility] Comment on above: Performed By: #### L 503.7505, L100.0100, L500.2500 ####[facility] [address] [place], [address] Calcium [Mass/Vol] 9.1 mg/dL Normal 7.6-11.0 [facility] Comment on above: Performed By: #### L 503.7505, L100.0100, L500.2500 ####[facility] [address] [place], [address] Chloride [Moles/Vol] 102 mmol/L Normal 98-108 [facility] Comment on above: Performed By: #### L 503.7505, L100.0100, L500.2500 ####[facility] [address] [place], [address] CO2 [Moles/Vol] 21.6 mmol/L Normal 21.0-32.0 [facility] Comment on above: Performed By: #### L 503.7505, L100.0100, L500.2500 ####[facility] [address] [place], [address] Creatinine [Mass/Vol] 2.51 mg/dL High 0.70-1.20 [facility] Comment on above: Performed By: #### L 503.7505, L100.0100, L500.2500 ####[facility] [address] [place], [address] GAP 15 Normal 5-15 [facility] Comment on above: Performed By: #### L 503.7505, L100.0100, L500.2500 ####[facility] [address] [place], [address] GFR/1.73 sq M.predicted among non-blacks MDRD (S/P/Bld) [Vol rate/Area] 25 mL/min/{1.73_m2} Low >60 [facility] Comment on above: Result Comment: mL/m in/1.73m2 CKD-EPI Creatinine Equation (2020) Performed By: #### L 503.7505, L100.0100, L500.2500 ####[facility] [address] [place], [address] Glucose [Mass/Vol] 262 mg/dL High 70-99 [facility] Comment on above: Performed By: #### L 503.7505, L100.0100, L500.2500 ####[facility] [address] [place], [address] Potassium [Moles/Vol] 4.8 mmol/L Normal 3.3-5.1 [facility] Comment on above: Performed By: #### L 503.7505, L100.0100, L500.2500 ####[facility] [address] [place], [address] Sodium [Moles/Vol] 139 mmol/L Normal 133-145 [facility] Comment on above: Performed By: #### L 503.7505, L100.0100, L500.2500 ####[facility] [address] [place], [address] Urea nitrogen [Mass/Vol] 39 mg/dL High 4-19 [facility] Comment on above: Performed By: #### L 503.7505, L100.0100, L500.2500 ####[facility] [address] [place], [address] Basophil percentageOrdered B y: Gustabo Pérez on 11-22-2024 Basophils/100 WBC (Bld) 0.4 % 0-1 [facility] CBC W/Diff, Automatedon 11-01 Absolute Lymph 1.37 X10 3/uL Normal 0.83-4.51 [facility] Comment on above: Performed By: #### L 503.7505, L100.0100, L500.2500 ####[facility] [address] [place], [address] Absolute Neut 6.2 X10 3/uL Normal 2.0-7.7 [facility] Comment on above: Performed By: #### L 503.7505, L100.0100, L500.2500 ####[facility] [address] [place], [address] Basophils/100 WBC (Bld) 0.4 % Normal 0-1 [facility] Comment on above: Performed By: #### L 503.7505, L100.0100, L500.2500 ####[facility] [address] [place], [address] Eosinophils/100 WBC (Bld) 1.5 % Normal 0-5 [facility] Comment on above: Performed By: #### L 503.7505, L100.0100, L500.2500 ####[facility] [address] [place], [address] Erythrocyte distribution width (RBC) [Ratio] 13.8 % Normal 11.6-14.6 [facility] Comment on above: Performed By: #### L 503.7505, L100.0100, L500.2500 ####[facility] [address] [place], [address] Hematocrit (Bld) [Volume fraction] 36.5 % Low 40-54 [facility] Comment on above: Performed By: #### L 503.7505, L100.0100, L500.2500 ####[facility] [address] [place], [address] Hemoglobin (Bld) [Mass/Vol] 11.8 g/dL Low 13.0-16.5 [facility] Comment on above: Performed By: #### L 503.7505, L100.0100, L500.2500 ####[facility] [address] [place], [address] IG% 0.500 Normal 0.0-0.9 [facility] Comment on above: Result Comment: IG% - Immature Granulocytes (promyelocytes, myelocytes andmetamyelocytes) > 1% indicates that a LEFT SHIFT is Present. Performed By: #### L 503.7505, L100.0100, L500.2500 ####[facility] [address] [place], [address] Lymphocytes/100 WBC (Bld) 16.1 % Low 19-41 [facility] Comment on above: Performed By: #### L 503.7505, L100.0100, L500.2500 ####[facility] [address] [place], [address] MCH (RBC) [Entitic mass] 29.6 pg Normal 27.0-32.0 [facility] Comment on above: Performed By: #### L 503.7505, L100.0100, L500.2500 ####[facility] [address] [place], [address] MCHC (RBC) [Mass/Vol] 32.3 g/dL Normal 32-36 [facility] Comment on above: Performed By: #### L 503.7505, L100.0100, L500.2500 ####[facility] [address] [place], [address] MCV (RBC) [Entitic vol] 91.7 fL Normal 80-94 [facility] Comment on above: Performed By: #### L 503.7505, L100.0100, L500.2500 ####[facility] [address] [place], [address] Monocytes/100 WBC (Bld) 9.0 % Normal 0-10 [facility] Comment on above: Performed By: #### L 503.7505, L100.0100, L500.2500 ####[facility] [address] [place], [address] Neutrophils/100 WBC (Bld) 72.5 % High 47-70 [facility] Comment on above: Performed By: #### L 503.7505, L100.0100, L500.2500 ####[facility] [address] [place], [address] Nucleated RBC (Bld) [#/Vol] 0 10*3/uL Normal 0-5 [facility] Comment on above: Performed By: #### L 503.7505, L100.0100, L500.2500 ####[facility] [address] [place], [address] Platelet mean volume (Bld) [Entitic vol] 13.0 fL High 6.2-12.0 [facility] Comment on above: Performed By: #### L 503.7505, L100.0100, L500.2500 ####[facility] [address] [place], [address] Platelets (Bld) [#/Vol] 148 10*3/uL Low 150-450 [facility] Comment on above: Performed By: #### L 503.7505, L100.0100, L500.2500 ####[facility] [address] [place], [address] RBC (Bld) [#/Vol] 3.98 10*6/uL Low 4.6-6.2 [facility] Comment on above: Performed By: #### L 503.7505, L100.0100, L500.2500 ####[facility] [address] [place], [address] RDW SD 47.0 fl High 35.1-43.9 [facility] Comment on above: Performed By: #### L 503.7505, L100.0100, L500.2500 ####[facility] [address] [place], [address] WBC (Bld) [#/Vol] 8.5 10*3/uL Normal 4.4-11.0 [facility] Comment on above: Performed By: #### L 503.7505, L100.0100, L500.2500 ####[facility] [address] [place], [address] Carbon dioxide, total [Moles /volume] in Central venous bloodOrdered By: Gustabo Pérez on 11-22-2024 CO2 [Moles/Vol] 21.6 mmol/L 21.0-32.0 [facility] Cardiology Visit Reporton Cardiology Visit Report Normal [facility] Chest PA and Lateralon 11-22 Chest PA and Lateral Normal [facility] Chloride assayOrdered By: Lydia Pérez on 11-22-2024 Chloride [Moles/Vol] 102 mmol/L 98-108 [facility] Eosinophil percentageOrdered By: Gustabo Pérez on [...] L 503.7505, L100.0100, L500.2500 ####[facility] [address] [place], [address] MCV (mean corpuscular volume ) determinationOrdered By: [...] RBC (Bld) [#/Vol] 3.98 10*6/uL Low 4.6-6.2 [facility] Serum creatinine measurement (mass/volume)Ordered By: Gustabo Pérez on 11-22-2024 Creatinine [Mass/Vol] 2.51 mg/dL High 0.70-1.20 [facility] Serum glucose measurement (m ass/volume)Ordered By: Gustabo Pérez on 11-22-2024 Glucose [Mass/Vol] 262 mg/dL High 70-99 [facility] Serum or plasma calcium francine urement (mass/volume)Ordered By: Gustabo Pérez on 11-22-2024 Calcium [Mass/Vol] 9.1 mg/dL 7.6-11.0 [facility] Serum or plasma urea nitroge n measurement (mass/volume)Ordered By: Gustabo Pérez on 11-22-2024 Urea nitrogen [Mass/Vol] 39 mg/dL High 4-19 [facility] Sodium levelOrdered By: Gustabo Pérez on 11-22-2024 Sodium [Moles/Vol] 139 mmol/L 133-145 [facility] White blood cell (WBC) count Ordered By: Gustabo Pérez on 11-22-2024 WBC (Bld) [#/Vol] 8.5 10*3/uL 4.4-11.0 [facility] Shoulder min 2 Viewson 11-20 Shoulder min 2 Views Normal [facility] Cardiovascular stress test r eportOrdered By: Jose Hay on 11-13-2024 Study report [facility] [address] [place] [address] MR#: [id number] Acct: [id number] Name: GERRY RICO Rep #: [id number] : 1945 79 From: Jose Hay MD Primary Care: Dr. 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 This note was generated with [employer] software. It may contain incorrectwords, spelling, and punctuation that were not noted in checking the note beforesigning. [id number] Date _ Jose Hay MD CC: FLAG MAKERAgnieszka Pérez; Dr. Marycarmen Rodriguez, DO ~ Date Dictated: 11/13/241536 Date Transcribed: 11/13/241536 Senior Risk Analyst: HARSH Signed [facility] Work Phone: Stress Reporton 11-13-2024 Stress Report Normal [facility] Echo Complete W/ Contraston 11-10-2024 Echo Complete W/ Contrast Normal [facility] Echocardiogram study reportO rdered By: Lance Rodriguez on 11-10-2024 Study report [facility] [address] [place] [address] Echo Complete W/ Contrast 11/10/24 0920 MR#: [id number] Acct: [id number] Name: GERRY RICO Rep #:[id number] : 1945 79 From: Lance Hooker Attending Dr: YRN Herr Sta tus: [facility] CLI Ordering Dr: Maren Olivas Driss e: 11/10/24 Location: [facility] Sex: M C Admitted: Reason For Study [...] 1213 Date _ Lance Rodriguez MD CC: FLAG MAKERAgnieszka Pérez; Dr. Marycarmen Rodriguez DO; Maren Olivas NP ~ Date Dictated: 11/10/24919 Date Transcribed: 11/10/241212 Senior Risk Analyst: Signed [facility] Absolute lymphocyte countOrd ered By: Marycarmen Rodriguez on 11-09-2024 Lymphocytes Auto (Unsp spec) [#/Vol] 1.23 10*3/uL 0.83-4.51 [facility] Absolute neutrophil countOrd ered By: Marycarmen Rodriguez on 11-09-2024 Neutrophils (Bld) [#/Vol] 4.1 10*3/uL 2.0-7.7 [facility] Anion gap in Serum or Plasma Ordered By: Marycarmen Rodriguez on 11-09-2024 Anion gap [Moles/Vol] 14 mmol/L 09-14 [facility] Automated [...] L 503.7505, L500.2500, L100.0100 ####[facility] [address] [place], [address] Calcium [Mass/Vol] 9.3 mg/dL Normal 7.6-11.0 [facility] Comment on above: Performed By: #### L 503.7505, L500.2500, L100.0100 ####[facility] [address] [place], [address] Chloride [Moles/Vol] 102 mmol/L Normal 98-108 [facility] Comment on above: Performed By: #### L 503.7505, L500.2500, L100.0100 ####[facility] [address] [place], [address] CO2 [Moles/Vol] 22.5 mmol/L Normal 21.0-32.0 [facility] Comment on above: Performed By: #### L 503.7505, L500.2500, L100.0100 ####[facility] [address] [place], [address] Creatinine [Mass/Vol] 2.49 mg/dL High 0.70-1.20 [facility] Comment on above: Performed By: #### L 503.7505, L500.2500, L100.0100 ####[facility] [address] [place], [address] GAP 14 Normal 5-15 [facility] Comment on above: Performed By: #### L 503.7505, L500.2500, L100.0100 ####[facility] [address] [place], [address] GFR/1.73 sq M.predicted among non-blacks MDRD (S/P/Bld) [Vol rate/Area] 26 mL/min/{1.73_m2} Low >60 [facility] Comment on above: Result Comment: mL/m in/1.73m2 CKD-EPI Creatinine Equation (2020) Performed By: #### L 503.7505, L500.2500, L100.0100 ####[facility] [address] [place], [address] Glucose [Mass/Vol] 169 mg/dL High 70-99 [facility] Comment on above: Performed By: #### L 503.7505, L500.2500, L100.0100 ####[facility] [address] [place], [address] Potassium [Moles/Vol] 4.6 mmol/L Normal 3.3-5.1 [facility] Comment on above: Performed By: #### L 503.7505, L500.2500, L100.0100 ####[facility] [address] [place], [address] Sodium [Moles/Vol] 139 mmol/L Normal 133-145 [facility] [facility] Comment on above: Performed By: #### L 503.7505, L500.2500, L100.0100 ####[facility] [address] [place], [address] Urea nitrogen [Mass/Vol] 49 mg/dL High 4-19 [facility] Comment on above: Performed By: #### L 503.7505, L500.2500, L100.0100 ####[facility] [address] [place], [address] Basophil percentageOrdered B y: Marycarmen Rodriguez on 11-09-2024 Basophils/100 WBC (Bld) 0.3 % 0- [facility] CBC W/Diff, Automatedon 10-31 Absolute Lymph 1.23 X10 3/uL Normal 0.83-4.51 [facility] Comment on above: Performed By: #### L 503.7505, L500.2500, L100.0100 ####[facility] [address] [place], [address] Absolute Neut 4.1 X10 3/uL Normal 2.0-7.7 [facility] Comment on above: Performed By: #### L 503.7505, L500.2500, L100.0100 ####[facility] [address] [place] [place], [address] Basophils/100 WBC (Bld) 0.3 % Normal 0-1 [facility] Comment on above: Performed By: #### L 503.7505, L500.2500, L100.0100 ####[facility] [address] [place], [address] Eosinophils/100 WBC (Bld) 2.4 % Normal 0-5 [facility] Comment on above: Performed By: #### L 503.7505, L500.2500, L100.0100 ####[facility] [address] [place], [address] Erythrocyte distribution width (RBC) [Ratio] 14.1 % Normal 11.6-14.6 [facility] Comment on above: Performed By: #### L 503.7505, L500.2500, L100.0100 ####[facility] [address] [place], [address] Hematocrit (Bld) [Volume fraction] 38.2 % Low 40-54 [facility] Comment on above: Performed By: #### L 503.7505, L500.2500, L100.0100 ####[facility] [address] [place], [address] Hemoglobin (Bld) [Mass/Vol] 12.2 g/dL Low 13.0-16.5 [facility] Comment on above: Performed By: #### L 503.7505, L500.2500, L100.0100 ####[facility] [address] [place], [address] IG% 0.500 Normal 0.0-0.9 [facility] Comment on above: Result Comment: IG% - Immature Granulocytes (promyelocytes, myelocytes andmetamyelocytes) > 1% indicates that a LEFT SHIFT is Present. Performed By: #### L 503.7505, L500.2500, L100.0100 ####[facility] [address] [place], [address] Lymphocytes/100 WBC (Bld) 19.9 % Normal 19-41 [facility] Comment on above: Performed By: #### L 503.7505, L500.2500, L100.0100 ####[facility] [address] [place], [address] MCH (RBC) [Entitic mass] 29.6 pg Normal 27.0-32.0 [facility] Comment on above: Performed By: #### L 503.7505, L500.2500, L100.0100 ####[facility] [address] [place], [address] MCHC (RBC) [Mass/Vol] 31.9 g/dL Low 32-36 [facility] Comment on above: Performed By: #### L 503.7505, L500.2500, L100.0100 ####[facility] [address] [place], [address] MCV (RBC) [Entitic vol] 92.7 fL Normal 80-94 [facility] Comment on above: Performed By: #### L 503.7505, L500.2500, L100.0100 ####[facility] [address] [place], [address] Monocytes/100 WBC (Bld) 10.4 % High 0-10 [facility] Comment on above: Performed By: #### L 503.7505, L500.2500, L100.0100 ####[facility] [address] [place], [address] Neutrophils/100 WBC (Bld) 66.5 % Normal 47-70 [facility] Comment on above: Performed By: #### L 503.7505, L500.2500, L100.0100 ####[facility] [address] [place], [address] Nucleated RBC (Bld) [#/Vol] 0 10*3/uL Normal 0-5 [facility] Comment on above: Performed By: #### L 503.7505, L500.2500, L100.0100 ####[facility] [address] [place], [address] Platelet mean volume (Bld) [Entitic vol] 12.7 fL High 6.2-12.0 [facility] Comment on above: Performed By: #### L 503.7505, L500.2500, L100.0100 ####[facility] [address] [place], [address] Platelets (Bld) [#/Vol] 120 10*3/uL Low 150-450 [facility] Comment on above: Performed By: #### L 503.7505, L500.2500, L100.0100 ####[facility] [address] [place], [address] RBC (Bld) [#/Vol] 4.12 10*6/uL Low 4.6-6.2 [facility] Comment on above: Performed By: #### L 503.7505, L500.2500, L100.0100 ####[facility] [address] [place], [address] RDW SD 47.8 fl High 35.1-43.9 [facility] Comment on above: Performed By: #### L 503.7505, L500.2500, L100.0100 ####[facility] [address] [place], [address] WBC (Bld) [#/Vol] 6.2 10*3/uL Normal 4.4-11.0 [facility] Comment on above: Performed By: #### L 503.3383, L500.2500, L100.0100 ####[facility] [address] [place], [address] Carbon dioxide, total [Moles /volume] in Central venous bloodOrdered By: Marycarmen Rodriguez on 11-09-2024 CO2 [Moles/Vol] 22.5 mmol/L 21.0-32.0 [facility] Chloride assayOrdered By: Danyelle Rodriguez on 11-09-2024 Chloride [Moles/Vol] 102 mmol/L 98-108 [facility] Eosinophil percentageOrdered By: Marycarmen Rodriguez on [...] L 503.7505, L500.2500, L100.0100 ####[facility] [address] [place], [place], [address] MCV (mean corpuscular volume ) determinationOrdered By: [...] Low 32-36 [facility] Mean platelet volume determi nationOrdered By: Marycarmen [...] 0-5 [facility] Platelet countOrdered By: Danyelle Rodriguez on 11-09-2024 Platelets (Bld) [#/Vol] 120 10*3/uL Low 150-450 [facility] Potassium measurement (mass/ volume)Ordered By: Marycarmen Rodriguez on 11-09-2024 Potassium (Unsp spec) [Mass/Vol] 4.6 mmol/L 3.3-5.1 [facility] RBC Auto (Bld) [#/Vol]Ordere d By: Marycarmen Rodriguez on 11-09-2024 RBC (Bld) [#/Vol] 4.12 10*6/uL Low 4.6-6.2 [facility] Serum creatinine measurement (mass/volume)Ordered By: Marycarmen Rodriguez on 11-09-2024 Creatinine [Mass/Vol] 2.49 mg/dL High 0.70-1.20 [facility] Serum glucose measurement (m ass/volume)Ordered By: Marycarmen Rodriguez on 11-09-2024 Glucose [Mass/Vol] 169 mg/dL High 70-99 [facility] Serum or plasma calcium francine urement (mass/volume)Ordered By: Marycarmen Rodriguez on 11-09-2024 Calcium [Mass/Vol] 9.3 mg/dL 7.6-11.0 [facility] Serum or plasma urea nitroge n measurement (mass/volume)Ordered By: Marycarmen Rodriguez on 11-09-2024 Urea nitrogen [Mass/Vol] 49 mg/dL High 4-19 [facility] Sodium levelOrdered By: Marycarmen Rodriguez on 07-10-2025 Sodium [Moles/Vol] 139 mmol/L 133-145 [facility] White blood cell (WBC) count Ordered By: Marycarmen Rodriguez on 11-09-2024 WBC (Bld) [#/Vol] 6.2 10*3/uL 4.4-11.0 [facility] Pulmonary Visit Reporton Pulmonary Visit Report Normal [facility] Cardiology Visit Reporton Cardiology Visit Report Normal [facility] [id number] 10-23-2024 [facility] Misc. COMMENT Normal . [facility] Comment on above: Order Comment: [id number] 0MED TOX Result Comment: Test Ordered: [id number] Q00-Sdfqpf+TJ1Bkkaxrlxvrpv Screen, Urine Negative ng/mL UI Reference Range: Zyxhca=318Ofjjtbukiku test includes Amphetamine and Methamphetamine.Barbiturates Negative ng/mL UI Reference Range: Ovxftq=177Lznvjknbmqlldzt Negative ng/mL UI Reference Range: Ykzosz=638Qzwlkte (Metab.), Urine Negative ng/mL UI Reference Range: Eiqlln=670Xiqoyhf Note: ng/mL UI See Final Results Reference Range: Zxrhib=357Sosehg test includes Codeine, Morphine, Hydromorphone, Hydrocodone.Opiates Positive [A ] UI Reference Range: Oynkag=980Skmwpa test includes Codeine, Morphine, Hydromorphone, Hydrocodone.Codeine Negative UI Reference Range: Ghixvt=027Wyqmymoe Negative UI Reference Range: Ivchlb=986Eydmzgdwvzsuc Negative UI Reference Range: Eznwav=101Bbjgjmydizw Positive [A ] UI Reference Range: .Hydrocodone Conf, MS, UR 349 ng/mL UI Reference Range: Lpruwv=1220-Vgangpncmytyfy, Urine Negative ng/mL UI Reference Range: Cutoff=10Oxycodone/Oxymorphone, Urine Negative ng/mL UI Reference Range: Olsflm=391Wfbj includes Oxycodone and OxymorphonePCP, Urine Negative ng/mL UI Reference Range: Cutoff=25Methadone Screen, Urine Negative ng/mL UI Reference Range: Lniquj=319Kwjqijbyflnt, Urine Negative ng/mL UI Reference Range: Usbuww=151Igtbbvxm, Urine Negative ng/mL UI Reference Range: Cutoff=2.0Test includes Fentanyl and NorfentanylThis test was developed and its performance characteristicsdetermined by [facility]. It has not been cleared orapproved by the Food and Drug Administration.Tramadol Negative ng/mL UI Reference Range: Sbmnmz=069Ixarymlppwueo, Urine Negative ng/mL UI Reference Range: Cutoff=10Creatinine, Urine 36.9 mg/dL UI Reference Range: 20.0-300.0pH, Urine 6.1 UI Reference Range: 4.5-8.9Performed at: UI - [facility] [id number] [place], [place] [id number] Director: Erik aWllis PhD, Phone: [phone] at: [facility] [address] [id number] Director: Bharath Hawthorne PhD, Phone: [phone] Performed By: #### L 3410.9992, L505.5000 ####[facility] [address] [place], [place], [id number] Absolute lymphocyte countOrd ered By: Gustabo Pérez [...] 10-18-2024 Anion gap [Moles/Vol] 12 mmol/L 5-15 [facility] Automated lymphocyte count a s percentage of total leukocytesOrdered By: Gustabo Pérez on 10-18-2024 Lymphocytes/100 WBC Auto (Unsp spec) 17.4 % Low 19-41 [facility] BUN/creatinine ratioOrdered By: Gustabo Pérez on 10-18-2024 Urea nitrogen/Creatinine [Mass ratio] 16.4 mg/mg 10-20 [facility] Basic Metabolic Profile (BMP )on 10-18-2024 BUN/CRE 16.4 RATIO Normal 10-20 [facility] Comment on above: Performed By: #### L 500.2500, L100.0100, L503.7505 ####[facility] [address] [place], [address] Calcium [Mass/Vol] 9.0 mg/dL Normal 7.6-11.0 [facility] Comment on above: Performed By: #### L 500.2500, L100.0100, L503.7505 ####[facility] [address] [place], [address] Chloride [Moles/Vol] 103 mmol/L Normal 98-108 [facility] Comment on above: Performed By: #### L 500.2500, L100.0100, L503.7505 ####[facility] [address] [place], [address] CO2 [Moles/Vol] 23.9 mmol/L Normal 21.0-32.0 [facility] Comment on above: Performed By: #### L 500.2500, L100.0100, L503.7505 ####[facility] [address] [place], [address] Creatinine [Mass/Vol] 2.00 mg/dL High 0.70-1.20 [facility] Comment on above: Performed By: #### L 500.2500, L100.0100, L503.7505 ####[facility] [address] [place], [address] GAP 12 Normal 5-15 [facility] Comment on above: Performed By: #### L 500.2500, L100.0100, L503.7505 ####[facility] [address] [place], [address] GFR/1.73 sq M.predicted among non-blacks MDRD (S/P/Bld) [Vol rate/Area] 33 mL/min/{1.73_m2} Low >60 [facility] Comment on above: Result Comment: mL/m in/1.73m2 CKD-EPI Creatinine Equation (2020) Performed By: #### L 500.2500, L100.0100, L503.7505 ####[facility] [address] [place], [address] Glucose [Mass/Vol] 125 mg/dL High 70-99 [facility] Comment on above: Performed By: #### L 500.2500, L100.0100, L503.7505 ####[facility] [address] [place], [address] Potassium [Moles/Vol] 4.8 mmol/L Normal 3.3-5.1 [facility] Comment on above: Performed By: #### L 500.2500, L100.0100, L503.7505 ####[facility] [address] [place], [address] Sodium [Moles/Vol] 139 mmol/L Normal 133-145 [facility] Comment on above: Performed By: #### L 500.2500, L100.0100, L503.7505 ####[facility] [address] [place], [address] Urea nitrogen [Mass/Vol] 33 mg/dL High 4-19 [facility] Comment on above: Performed By: #### L 500.2500, L100.0100, L503.7505 ####[facility] [address] [place], [address] Basophil percentageOrdered B y: Gustabo Pérez on 10-18-2024 Basophils/100 WBC (Bld) 0.2 % 0-1 [facility] CBC W/Diff, Automatedon 10-01 Absolute Lymph 1.15 X10 3/uL Normal 0.83-4.51 [facility] Comment on above: Performed By: #### L 500.2500, L100.0100, L503.7505 ####[facility] [address] [place], [address] Absolute Neut 4.6 X10 3/uL Normal 2.0-7.7 [facility] Comment on above: Performed By: #### L 500.2500, L100.0100, L503.7505 ####[facility] [address] [place], [address] Basophils/100 WBC (Bld) 0.2 % Normal 0-1 [facility] Comment on above: Performed By: #### L 500.2500, L100.0100, L503.7505 ####[facility] [address] [place], [address] Eosinophils/100 WBC (Bld) 2.0 % Normal 0-5 [facility] Comment on above: Performed By: #### L 500.2500, L100.0100, L503.7505 ####[facility] [address] [place], [address] Erythrocyte distribution width (RBC) [Ratio] 14.3 % Normal 11.6-14.6 [facility] Comment on above: Performed By: #### L 500.2500, L100.0100, L503.7505 ####[facility] [address] [place], [address] Hematocrit (Bld) [Volume fraction] 36.4 % Low 40-54 [facility] Comment on above: Performed By: #### L 500.2500, L100.0100, L503.7505 ####[facility] [address] [place], [address] Hemoglobin (Bld) [Mass/Vol] 11.5 g/dL Low 13.0-16.5 [facility] Comment on above: Performed By: #### L 500.2500, L100.0100, L503.7505 ####[facility] [address] [place], [address] IG% 0.600 Normal 0.0-0.9 [facility] Comment on above: Result Comment: IG% - Immature Granulocytes (promyelocytes, myelocytes andmetamyelocytes) > 1% indicates that a LEFT SHIFT is Present. Performed By: #### L 500.2500, L100.0100, L503.7505 ####[facility] [address] [place], [address] Lymphocytes/100 WBC (Bld) 17.4 % Low 19-41 [facility] Comment on above: Performed By: #### L 500.2500, L100.0100, L503.7505 ####[facility] [address] [place], [address] MCH (RBC) [Entitic mass] 29.4 pg Normal 27.0-32.0 [facility] Comment on above: Performed By: #### L 500.2500, L100.0100, L503.7505 ####[facility] [address] [place], [address] MCHC (RBC) [Mass/Vol] 31.6 g/dL Low 32-36 [facility] Comment on above: Performed By: #### L 500.2500, L100.0100, L503.7505 ####[facility] [address] [place], [address] MCV (RBC) [Entitic vol] 93.1 fL Normal 80-94 [facility] Comment on above: Performed By: #### L 500.2500, L100.0100, L503.7505 ####[facility] [address] [place], [address] Monocytes/100 WBC (Bld) 10.4 % High 0-10 [facility] Comment on above: Performed By: #### L 500.2500, L100.0100, L503.7505 ####[facility] [address] [place], [address] Neutrophils/100 WBC (Bld) 69.4 % Normal 47-70 [facility] Comment on above: Performed By: #### L 500.2500, L100.0100, L503.7505 ####[facility] [address] [place], [address] Nucleated RBC (Bld) [#/Vol] 0 10*3/uL Normal 0-5 [facility] Comment on above: Performed By: #### L 500.2500, L100.0100, L503.7505 ####[facility] [address] [place], [address] Platelet mean volume (Bld) [Entitic vol] 12.9 fL High 6.2-12.0 [facility] Comment on above: Performed By: #### L 500.2500, L100.0100, L503.7505 ####[facility] [address] [place], [address] Platelets (Bld) [#/Vol] 152 10*3/uL Normal 150-450 [facility] Comment on above: Performed By: #### L 500.2500, L100.0100, L503.7505 ####[facility] [address] [place], [address] RBC (Bld) [#/Vol] 3.91 10*6/uL Low 4.6-6.2 [facility] Comment on above: Performed By: #### L 500.2500, L100.0100, L503.7505 ####[facility] [address] [place], [address] RDW SD 48.5 fl High 35.1-43.9 [facility] Comment on above: Performed By: #### L 500.2500, L100.0100, L503.7505 ####[facility] [address] [place], [address] WBC (Bld) [#/Vol] 6.6 10*3/uL Normal 4.4-11.0 [facility] Comment on above: Performed By: #### L 500.2500, L100.0100, L503.7505 ####[facility] [address] [place], [address] Carbon dioxide, total [Moles /volume] in Central venous bloodOrdered By: Gustabo Pérez on 10-18-2024 CO2 [Moles/Vol] 23.9 mmol/L 21.0-32.0 [facility] Chloride assayOrdered By: Lydia Pérez on 10-18-2024 Chloride [Moles/Vol] 103 mmol/L 98-108 [facility] Eosinophil percentageOrdered By: Gustabo Pérez on [...] L 500.2500, L100.0100, L503.7505 ####[facility] [address] [place], [address] MCV (mean corpuscular volume ) determinationOrdered By: [...] Low 32-36 [facility] Mean platelet volume determi nationOrdered By: Gustabo [...] RBC (Bld) [#/Vol] 3.91 10*6/uL Low 4.6-6.2 [facility] Screening urine fentanyl ritu surementOrdered By: Brooks Carpenter on 10-18-2024 fentaNYL Screen Ql (U) Negative [facility] Serum creatinine measurement (mass/volume)Ordered By: Gustabo Pérez on 10-18-2024 Creatinine [Mass/Vol] 2.00 mg/dL High 0.70-1.20 [facility] Serum glucose measurement (m ass/volume)Ordered By: Gustabo Pérez on 10-18-2024 Glucose [Mass/Vol] 125 mg/dL High 70-99 [facility] Serum or plasma calcium francine urement (mass/volume)Ordered By: Gustabo Pérez on 10-18-2024 Calcium [Mass/Vol] 9.0 mg/dL 7.6-11.0 [facility] Serum or plasma urea nitroge n measurement (mass/volume)Ordered By: Gustabo Pérez on 10-18-2024 Urea nitrogen [Mass/Vol] 33 mg/dL High 4-19 [facility] Sodium levelOrdered By: Gustabo Pérez on 10-18-2024 Sodium [Moles/Vol] 139 mmol/L 133-145 [facility] Urine Drug Screen (VISTA)on 10-18-2024 AMPHETAMINES Negative Normal <1000 ng/mL [facility] Comment on above: Order Comment: PAIN MANAGMENT Performed By: #### L 3410.9992, L505.5000 ####[facility] [address] [place] [address] BARBITIURATES Negative Normal < 200 ng/mL [facility] Comment on above: Order Comment: PAIN MANAGMENT Performed By: #### L 3410.9992, L505.5000 ####[facility] [address] [facility] [address] BENZODIAZIPINE Negative Normal < 200 ng/mL [facility] Comment on above: Order Comment: PAIN MANAGMENT Performed By: #### L 3410.9992, L505.5000 ####[facility] [address] [facility] [address] BUP Ur Drug Scr Negative Normal < 200 ng/mL [facility] Comment on above: Order Comment: PAIN MANAGMENT Performed By: #### L 3410.9992, L505.5000 ####[facility] [address] [facility] [address] COCAINE Negative Normal < 300 ng/mL [facility] Comment on above: Order Comment: PAIN MANAGMENT Performed By: #### L 3410.9992, L505.5000 ####[facility] [address] [place], [address] Fentanyl Negative Normal [facility] Comment on above: Order Comment: PAIN MANAGMENT Performed By: #### L 3410.9992, L505.5000 ####[facility] [address] [place], [address] METHADONE Negative Normal < 300 ng/mL [facility] Comment on above: Order Comment: PAIN MANAGMENT Performed By: #### L 3410.9992, L505.5000 ####[facility] [address] [place], [address] OPIATES Positive Normal < 300 ng/mL [facility] Comment on above: Order Comment: PAIN MANAGMENT Result Comment: If c onfirmation testing is needed, a separate order will berequired to send out testing to the reference laboratory. Performed By: #### L 3410.9992, L505.5000 ####[facility] [address] [place], [address] OXYCODONE Negative Normal < 100 ng/mL [facility] Comment on above: Order Comment: PAIN MANAGMENT Performed By: #### L 3410.9992, L505.5000 ####[facility] [address] [place], [address] PCP Negative Normal < 25 ng/mL [facility] Comment on above: Order Comment: PAIN MANAGMENT Performed By: #### L 3410.9992, L505.5000 ####[facility] [address] [place], [address] THC Negative Normal < 50 ng/mL [facility] Comment on above: Order Comment: PAIN MANAGMENT Performed By: #### L 3410.9992, L505.5000 ####[facility] [address] [place], [address] Urine benzodiazepine levelOr dered By: Brooks Carpenter on 10-18-2024 Benzodiazepines Ql (U) Negative < 200 ng/mL [facility] Urine cocaine levelOrdered B y: Brooks Basali on 10-18-2024 Cocaine Ql (U) Negative < 300 ng/mL [facility] Urine eyggr-4-wamowatyeulbvi abinol (THC) measurementOrdered By: Brooks Basali on 10-18-2024 Cannabinoids Screen Ql (U) Negative < 50 ng/mL [facility] Urine phencyclidine (PCP) de tectionOrdered By: Brooks Basali on 10-18-2024 Phencyclidine Ql (U) Negative < 25 ng/mL [facility] White blood cell (WBC) count Ordered By: Gustabo Pérez on 10-18-2024 WBC (Bld) [#/Vol] 6.6 10*3/uL 4.4-11.0 [facility] Absolute lymphocyte countOrd ered By: Marycarmen Rodriguez on 09-29-2024 Lymphocytes Auto (Unsp spec) [#/Vol] 1.35 10*3/uL 0.83-4.51 [facility] Absolute neutrophil countOrd ered By: aMrycarmen Rodriguez on 09-29-2024 Neutrophils (Bld) [#/Vol] 9.2 [...] above: Performed By: #### L 503.0106, L100.0100, L503.8326, L503.2985 ####[facility] [address] [place], [place], [address] Absolute Neut 9.2 X10 3/uL High 2.0-7.7 [facility] Comment on above: Performed By: #### L 503.0106, L100.0100, L503.6550, L503.6150 ####[facility] [address] [place], [address] Basophils/100 WBC (Bld) 0.6 % Normal 0-1 [facility] Comment on above: Performed By: #### L 503.0106, L100.0100, L503.6550, L503.6150 ####[facility] [address] [place], [address] Eosinophils/100 WBC (Bld) 0.7 % Normal 0-5 [facility] Comment on above: Performed By: #### L 503.0106, L100.0100, L503.6550, L503.6150 ####[facility] [address] [place], [address] Erythrocyte distribution width (RBC) [Ratio] 14.2 % Normal 11.6-14.6 [facility] Comment on above: Performed By: #### L 503.0106, L100.0100, L503.6550, L503.6150 ####[facility] [address] [place], [address] Hematocrit (Bld) [Volume fraction] 37.4 % Low 40-54 [facility] Comment on above: Performed By: #### L 503.0106, L100.0100, L503.6550, L503.6150 ####[facility] [address] [place], [address] Hemoglobin (Bld) [Mass/Vol] 12.1 g/dL Low 13.0-16.5 [facility] Comment on above: Performed By: #### L 503.0106, L100.0100, L503.6550, L503.6150 ####[facility] [address] [place], [address] IG% 3.600 High 0.0-0.9 [facility] Comment on above: Result Comment: IG% - Immature Granulocytes (promyelocytes, myelocytes andmetamyelocytes) > 1% indicates that a LEFT SHIFT is Present. Performed By: #### L 503.0106, L100.0100, L503.6550, L503.6150 ####[facility] [address] [place], [address] Lymphocytes/100 WBC (Bld) 10.9 % Low 19-41 [facility] Comment on above: Performed By: #### L 503.0106, L100.0100, L503.6550, L503.6150 ####[facility] [address] [place], [address] MCH (RBC) [Entitic mass] 29.6 pg Normal 27.0-32.0 [facility] Comment on above: Performed By: #### L 503.0106, L100.0100, L503.6550, L503.6150 ####[facility] [address] [place], [address] MCHC (RBC) [Mass/Vol] 32.4 g/dL Normal 32-36 [facility] Comment on above: Performed By: #### L 503.0106, L100.0100, L503.6550, L503.6150 ####[facility] [address] [place], [address] MCV (RBC) [Entitic vol] 91.4 fL Normal 80-94 [facility] Comment on above: Performed By: #### L 503.0106, L100.0100, L503.6550, L503.6150 ####[facility] [address] [place], [address] Monocytes/100 WBC (Bld) 9.9 % Normal 0-10 [facility] Comment on above: Performed By: #### L 503.0106, L100.0100, L503.6550, L503.6150 ####[facility] [address] [place], [address] Neutrophils/100 WBC (Bld) 74.3 % High 47-70 [facility] Comment on above: Performed By: #### L 503.0106, L100.0100, L503.6550, L503.6150 ####[facility] [address] [place], [address] Nucleated RBC (Bld) [#/Vol] 0 10*3/uL Normal 0-5 [facility] Comment on above: Performed By: #### L 503.0106, L100.0100, L503.6550, L503.6150 ####[facility] [address] [place], [address] Platelet mean volume (Bld) [Entitic vol] 12.3 fL High 6.2-12.0 [facility] Comment on above: Performed By: #### L 503.0106, L100.0100, L503.6550, L503.6150 ####[facility] [address] [place], [address] Platelets (Bld) [#/Vol] 169 10*3/uL Normal 150-450 [facility] Comment on above: Performed By: #### L 503.0106, L100.0100, L503.6550, L503.6150 ####[facility] [address] [place], [address] RBC (Bld) [#/Vol] 4.09 10*6/uL Low 4.6-6.2 [facility] Comment on above: Performed By: #### L 503.0106, L100.0100, L503.6550, L503.6150 ####[facility] [address] [place], [address] RDW SD 47.4 fl High 35.1-43.9 [facility] Comment on above: Performed By: #### L 503.0106, L100.0100, L503.6550, L503.6150 ####[facility] [address] [place], [place], [id number] WBC (Bld) [#/Vol] 12.4 10*3/uL High 4.4-11.0 [facility] Comment on above: Performed By: #### L 503.0106, L100.0100, L503.6550, L503.6150 ####[facility] [address] [place], [address] Eosinophil percentageOrdered By: Marycarmen Rodriguez [...] 09-29-2024 Ferritin [Mass/Vol] 454 ng/mL High 37-417 [facility] Comment on above: Performed By: #### L 503.0106, L100.0100, L503.6550, L503.6150 ####[facility] [address] [place], [address] Hematocrit Auto (Bld) [Volum e fraction]Ordered By: [...] By: #### L 503.0106, L100.0100, L503.6550, L503.6150 ####[facility] [address] [place], [place], [address] Iron measurement (mass/mass) Ordered By: Marycarmen Rodriguez [...] g/dL 32-36 [facility] Mean platelet volume determi nationOrdered By: Marycarmen [...] 0-5 [facility] Platelet countOrdered By: Danyelle Rodriguez on 09-29-2024 Platelets (Bld) [#/Vol] 169 10*3/uL 150-450 [facility] RBC Auto (Bld) [#/Vol]Ordere d By: Marycarmen Rodriguez on 09-29-2024 RBC (Bld) [#/Vol] 4.09 10*6/uL Low 4.6-6.2 [facility] Serum or plasma ferritin ritu surement (mass/volume)Ordered By: Marycarmen Rodriguez on 09-29-2024 Ferritin [Mass/Vol] 454 ng/mL High 37-417 [facility] Vitamin B12on 09-29-2024 Cobalamin (Vitamin B12) [Mass/Vol] 766 pg/mL Normal 180-914 [facility] Comment on above: Performed By: #### L 503.0106, L100.0100, L503.6550, L503.6150 ####[facility] [address] [place], [address] Vitamin B12 ser/plasOrdered By: Marycarmen Rodriguez on 09-29-2024 Cobalamin (Vitamin B12) [Mass/Vol] 766 pg/mL 180-914 [facility] White blood cell (WBC) count Ordered By: Marycarmen Rodriguez on 09-29-2024 WBC (Bld) [#/Vol] 12.4 10*3/uL High 4.4-11.0 [facility] Absolute lymphocyte countOrd ered By: ELIAZAR [...] [facility] Basophil percentageOrdered B y: FLAG MAKER Maren Olivas on 09-20-2024 Basophils/100 WBC (Bld) 0.3 % 0-1 [facility] CBC W/Diff, Automatedon - Absolute Lymph 1.44 X10 3/uL Normal 0.83-4.51 [facility] Comment on above: Performed By: #### L 503.7505, L100.0100 ####[facility] [address] [place], [address] Absolute Neut 6.6 X10 3/uL Normal 2.0-7.7 [facility] Comment on above: Performed By: #### L 503.7505, L100.0100 ####[facility] [address] [place], [address] Basophils/100 WBC (Bld) 0.3 % Normal 0-1 [facility] Comment on above: Performed By: #### L 503.7505, L100.0100 ####[facility] [address] [place], [address] Eosinophils/100 WBC (Bld) 1.5 % Normal 0-5 [facility] Comment on above: Performed By: #### L 503.7505, L100.0100 ####[facility] [address] [place], [address] Erythrocyte distribution width (RBC) [Ratio] 14.1 % Normal 11.6-14.6 [facility] Comment on above: Performed By: #### L 503.7505, L100.0100 ####[facility] [address] [place], [address] Hematocrit (Bld) [Volume fraction] 34.8 % Low 40-54 [facility] Comment on above: Performed By: #### L 503.7505, L100.0100 ####[facility] [address] [place], [address] Hemoglobin (Bld) [Mass/Vol] 11.1 g/dL Low 13.0-16.5 [facility] Comment on above: Performed By: #### L 503.7505, L100.0100 ####[facility] [address] [place], [address] IG% 0.800 Normal 0.0-0.9 [facility] Comment on above: Result Comment: IG% - Immature Granulocytes (promyelocytes, myelocytes andmetamyelocytes) > 1% indicates that a LEFT SHIFT is Present. Performed By: #### L 503.7505, L100.0100 ####[facility] [address] [place], [address] Lymphocytes/100 WBC (Bld) 15.5 % Low 19-41 [facility] Comment on above: Performed By: #### L 503.7505, L100.0100 ####[facility] [address] [place], [address] MCH (RBC) [Entitic mass] 29.4 pg Normal 27.0-32.0 [facility] Comment on above: Performed By: #### L 503.7505, L100.0100 ####[facility] [address] [place], [address] MCHC (RBC) [Mass/Vol] 31.9 g/dL Low 32-36 [facility] Comment on above: Performed By: #### L 503.7505, L100.0100 ####[facility] [address] [place], [address] MCV (RBC) [Entitic vol] 92.1 fL Normal 80-94 [facility] Comment on above: Performed By: #### L 503.7505, L100.0100 ####[facility] [address] [place], [address] Monocytes/100 WBC (Bld) 11.1 % High 0-10 [facility] Comment on above: Performed By: #### L 503.7505, L100.0100 ####[facility] [address] [place], [address] Neutrophils/100 WBC (Bld) 70.8 % High 47-70 [facility] Comment on above: Performed By: #### L 503.7505, L100.0100 ####[facility] [address] [place], [address] Nucleated RBC (Bld) [#/Vol] 0 10*3/uL Normal 0-5 [facility] Comment on above: Performed By: #### L 503.7505, L100.0100 ####[facility] [address] [place], [address] Platelet mean volume (Bld) [Entitic vol] 12.6 fL High 6.2-12.0 [facility] Comment on above: Performed By: #### L 503.7505, L100.0100 ####[facility] [address] [place], [address] Platelets (Bld) [#/Vol] 166 10*3/uL Normal 150-450 [facility] Comment on above: Performed By: #### L 503.7505, L100.0100 ####[facility] [address] [place], [address] RBC (Bld) [#/Vol] 3.78 10*6/uL Low 4.6-6.2 [facility] Comment on above: Performed By: #### L 503.7505, L100.0100 ####[facility] [address] [place], [address] RDW SD 48.0 fl High 35.1-43.9 [facility] Comment on above: Performed By: #### L 503.7505, L100.0100 ####[facility] [address] [place], [address] WBC (Bld) [#/Vol] 9.3 10*3/uL Normal 4.4-11.0 [facility] Comment on above: Performed By: #### L 503.7505, L100.0100 ####[facility] [address] [place], [address] Eosinophil percentageOrdered By: ELIAZAR Olivas on 09-20-2024 [...] pg/mL Performed By: #### L 503.7505, L100.0100 ####[facility] [address] [place], [address] MCV (mean corpuscular volume ) determinationOrdered By: [...] Low 32-36 [facility] Mean platelet volume determi nationOrdered By: ELIAZAR [...] [facility] Platelet countOrdered By: ELIAZAR Oilvas on 09-20-2024 Platelets (Bld) [#/Vol] 166 10*3/uL 150-450 [facility] Pulmonary Visit Reporton Pulmonary Visit Report Normal [facility] RBC Auto (Bld) [#/Vol]Ordere d By: ELIAZAR Olivas on 09-20-2024 RBC (Bld) [#/Vol] 3.78 10*6/uL Low 4.6-6.2 [facility] White blood cell (WBC) count Ordered By: ELIAZAR Olivas on 09-20-2024 WBC (Bld) [#/Vol] 9.3 10*3/uL 4.4-11.0 [facility] 6 Minute Walk Teston 025 6 Minute Walk Test Normal [facility] Pulmonary Visit Reporton Pulmonary Visit Report Normal [facility] BUN/creatinine ratioOrdered By: Marycarmen Rodriguez on 06-30-2024 Urea nitrogen/Creatinine [Mass ratio] 17.4 mg/mg 10-20 [facility] Basic Metabolic Profile (BMP )on 06-30-2024 Anion gap [Moles/Vol] 11 mmol/L Normal 5-15 [facility] Comment on above: Performed By: #### L 500.2500 ####[facility] [address] [place], [address] BUN/CRE 17.4 RATIO Normal - [facility] Comment on above: Performed By: #### L 500.2500 ####[facility] [address] [place], [address] Calcium [Mass/Vol] 9.7 mg/dL Normal 7.6-11.0 [facility] Comment on above: Performed By: #### L 500.2500 ####[facility] [address] [place], [address] Chloride [Moles/Vol] 105 mmol/L Normal 96-108 [facility] Comment on above: Performed By: #### L 500.2500 ####[facility] [address] [place], [address] CO2 [Moles/Vol] 25.3 mmol/L Normal 22.0-29.0 [facility] Comment on above: Performed By: #### L 500.2500 ####[facility] [address] [place], [address] Creatinine [Mass/Vol] 1.80 mg/dL High 0.70-1.20 [facility] Comment on above: Performed By: #### L 500.2500 ####[facility] [address] [place], [address] GFR/1.73 sq M.predicted among non-blacks MDRD (S/P/Bld) [Vol rate/Area] 38 mL/min/{1.73_m2} Low >60 [facility] Comment on above: Result Comment: mL/m in/1.73m2 CKD-EPI Creatinine Equation (2020) Performed By: #### L 500.2500 ####[facility] [address] [place], [address] Glucose [Mass/Vol] 112 mg/dL High 70-99 [facility] Comment on above: Performed By: #### L 500.2500 ####[facility] [address] [place], [address] Potassium [Moles/Vol] 4.8 mmol/L Normal 3.3-5.1 [facility] Comment on above: Performed By: #### L 500.2500 ####[facility] [address] [place], [address] Sodium [Moles/Vol] 141 mmol/L Normal 133-145 [facility] Comment on above: Performed By: #### L 500.2500 ####[facility] [address] [place], [address] Urea nitrogen [Mass/Vol] 31 mg/dL High 4-19 [facility] Comment on above: Performed By: #### L 500.2675 ####[facility] [address] [place], [address] Carbon dioxide measurementOr dered By: Marycarmen Rodriguez on 06-30-2024 CO2 [Moles/Vol] 25.3 mmol/L 22.0-29.0 [facility] Chloride measurementOrdered By: Marycarmen Rodriguez on 06-30-2024 Chloride [Moles/Vol] 105 mmol/L 96-108 [facility] GFR/1.73 sq M.predicted ana lilia g [...] High 0.70-1.20 [facility] Serum glucose measurement (m ass/volume)Ordered By: Marycarmen Rodriguez on 06-30-2024 Glucose [Mass/Vol] 112 mg/dL High 70-99 [facility] Serum or plasma anion gap de termination (moles/volume)Ordered By: Marycarmen Rodriguez on 06-30-2024 Anion gap [Moles/Vol] 11 mmol/L 5-15 [facility] Serum or plasma calcium francine urement (mass/volume)Ordered By: Marycarmen Rodriguez on 02-28-2025 Calcium [Mass/Vol] 9.7 mg/dL 7.6-11.0 [facility] Serum or plasma potassium me asurementOrdered By: Marycarmen Rodriguez on 06-30-2024 Potassium [Moles/Vol] 4.8 mmol/L 3.3-5.1 [facility] Serum or plasma sodium measu rement (moles/volume)Ordered By: Marycarmen Rodriguez on 06-30-2024 Sodium [Moles/Vol] 141 mmol/L 133-145 [facility] Serum or plasma urea nitroge [...] L 500.2500, L100.0100, L503.6620 ####[facility] [address] [place], [place], [address] Basic Metabolic Profile (BMP )on 04-17-2024 BUN/CRE 11.2 RATIO Normal 10-20 [facility] Comment on above: Performed By: #### L 500.2500, L100.0100, L503.6620 ####[facility] [address] [place], [address] CA,Total 9.0 mg/dL Normal 8.5-10.1 [facility] Comment on above: Performed By: #### L 500.2500, L100.0100, L503.6620 ####[facility] [address] [place], [address] Chloride [Moles/Vol] 107 mmol/L Normal 98-107 [facility] Comment on above: Performed By: #### L 500.2500, L100.0100, L503.6620 ####[facility] [address] [place], [address] CO2 [Moles/Vol] 27.0 mmol/L Normal 21.0-32.0 [facility] Comment on above: Performed By: #### L 500.2500, L100.0100, L503.6620 ####[facility] [address] [place], [address] Creatinine [Mass/Vol] 1.79 mg/dL High 0.70-1.30 [facility] Comment on above: Result Comment: The validity of the calculated GFR GFRAA in patients over70 years has not been determined. Clinical correlation isessential. Performed By: #### L 500.2500, L100.0100, L503.6620 ####[facility] [address] [place], [address] EST GFR - AA 47 mL/min Low >60 [facility] Comment on above: Result Comment: Afri can [place] GFR Calc Performed By: #### L 500.2500, L100.0100, L503.6620 ####[facility] [address] [place], [address] GAP 4 Low 5-15 [facility] Comment on above: Performed By: #### L 500.2500, L100.0100, L503.6620 ####[facility] [address] [place], [address] GFR/1.73 sq M.predicted among non-blacks MDRD (S/P/Bld) [Vol rate/Area] 39 mL/min/{1.73_m2} Low >60 [facility] Comment on above: Result Comment: Non- GFR Calc Performed By: #### L 500.2500, L100.0100, L503.6620 ####[facility] [address] [place], [address] Glucose [Mass/Vol] 228 mg/dL High 74-106 [facility] Comment on above: Result Comment: Gluc ose result greater than or equal to 200 mg/dLsuggests DIABETES MELLITUS per A.D.A. criteria. Performed By: #### L 500.2500, L100.0100, L503.6620 ####[facility] [address] [place], [address] Potassium [Moles/Vol] 4.8 mmol/L Normal 3.5-5.1 [facility] Comment on above: Performed By: #### L 500.2500, L100.0100, L503.6620 ####[facility] [address] [place], [address] Sodium [Moles/Vol] 138 mmol/L Normal 136-145 [facility] Comment on above: Performed By: #### L 500.2500, L100.0100, L503.6620 ####[facility] [address] [place], [address] Urea nitrogen [Mass/Vol] 20 mg/dL High 7-18 [facility] Comment on above: Performed By: #### L 500.2500, L100.0100, L503.6620 ####[facility] [address] [place], [address] Basophil percentageOrdered B y: Gustabo Pérez on 04-17-2024 Basophils/100 WBC (Bld) 0.5 % 0- [facility] Blood urea nitrogen (BUN)/cr eatinine ratioOrdered By: Gustabo Pérez on 04-17-2024 Urea nitrogen/Creatinine [Mass ratio] 11.2 mg/mg 10-20 [facility] CBC W/Diff, Automatedon 04-02 Absolute Lymph 1.29 X10 3/uL Normal 0.83-4.51 [facility] Comment on above: Performed By: #### L 500.2500, L100.0100, L503.6620 ####[facility] [address] [place], [address] Absolute Neut 6.0 X10 3/uL Normal 2.0-7.7 [facility] Comment on above: Performed By: #### L 500.2500, L100.0100, L503.6620 ####[facility] [address] [place], [address] Basophils/100 WBC (Bld) 0.5 % Normal 0-1 [facility] Comment on above: Performed By: #### L 500.2500, L100.0100, L503.6620 ####[facility] [address] [place], [address] Eosinophils/100 WBC (Bld) 1.2 % Normal 0-5 [facility] Comment on above: Performed By: #### L 500.2500, L100.0100, L503.6620 ####[facility] [address] [place], [address] Erythrocyte distribution width (RBC) [Ratio] 13.9 % Normal 11.6-14.6 [facility] Comment on above: Performed By: #### L 500.2500, L100.0100, L503.6620 ####[facility] [address] [place], [address] Hematocrit (Bld) [Volume fraction] 41.0 % Normal 40-54 [facility] Comment on above: Performed By: #### L 500.2500, L100.0100, L503.6620 ####[facility] [address] [place], [address] Hemoglobin (Bld) [Mass/Vol] 13.2 g/dL Normal 13.0-16.5 [facility] Comment on above: Performed By: #### L 500.2500, L100.0100, L503.6620 ####[facility] [address] [place], [address] IG% 0.600 Normal 0.0-0.9 [facility] Comment on above: Result Comment: IG% - Immature Granulocytes (promyelocytes, myelocytes andmetamyelocytes) > 1% indicates that a LEFT SHIFT is Present. Performed By: #### L 500.2500, L100.0100, L503.6620 ####[facility] [address] [place], [address] Lymphocytes/100 WBC (Bld) 15.7 % Low 19-41 [facility] Comment on above: Performed By: #### L 500.2500, L100.0100, L503.6620 ####[facility] [address] [place], [address] MCH (RBC) [Entitic mass] 29.2 pg Normal 27.0-32.0 [facility] Comment on above: Performed By: #### L 500.2500, L100.0100, L503.6620 ####[facility] [address] [place], [address] MCHC (RBC) [Mass/Vol] 32.2 g/dL Normal 32-36 [facility] Comment on above: Performed By: #### L 500.2500, L100.0100, L503.6620 ####[facility] [address] [place], [address] MCV (RBC) [Entitic vol] 90.7 fL Normal 80-94 [facility] Comment on above: Performed By: #### L 500.2500, L100.0100, L503.6620 ####[facility] [address] [place], [address] Monocytes/100 WBC (Bld) 8.5 % Normal 0-10 [facility] Comment on above: Performed By: #### L 500.2500, L100.0100, L503.6620 ####[facility] [address] [place], [address] Neutrophils/100 WBC (Bld) 73.5 % High 47-70 [facility] Comment on above: Performed By: #### L 500.2500, L100.0100, L503.6620 ####[facility] [address] [place], [address] Nucleated RBC (Bld) [#/Vol] 0 10*3/uL Normal 0-5 [facility] Comment on above: Performed By: #### L 500.2500, L100.0100, L503.6620 ####[facility] [address] [place], [address] Platelet mean volume (Bld) [Entitic vol] 12.3 fL High 6.2-12.0 [facility] Comment on above: Performed By: #### L 500.2500, L100.0100, L503.6620 ####[facility] [address] [place], [address] Platelets (Bld) [#/Vol] 185 10*3/uL Normal 150-450 [facility] Comment on above: Performed By: #### L 500.2500, L100.0100, L503.6620 ####[facility] [address] [place], [address] RBC (Bld) [#/Vol] 4.52 10*6/uL Low 4.6-6.2 [facility] Comment on above: Performed By: #### L 500.2500, L100.0100, L503.6620 ####[facility] [address] [place], [address] RDW SD 46.4 fl High 35.1-43.9 [facility] Comment on above: Performed By: #### L 500.2500, L100.0100, L503.6620 ####[facility] [address] [place], [address] WBC (Bld) [#/Vol] 8.2 10*3/uL Normal 4.4-11.0 [facility] Comment on above: Performed By: #### L 500.2500, L100.0100, L503.6620 ####[facility] [address] [place], [address] Carbon dioxide measurementOr dered By: Gustabo Pérez on 04-17-2024 CO2 [Moles/Vol] 27.0 mmol/L 21.0-32.0 [facility] Cardiology Visit Reporton Cardiology Visit Report Normal [facility] Chloride measurementOrdered By: Gustabo Pérez on 04-17-2024 Chloride [Moles/Vol] 107 mmol/L 98-107 [facility] Eosinophil percentageOrdered By: Gustabo Pérez on [...] 04-17-2024 Glucose [Mass/Vol] 228 mg/dL High 74-106 [facility] Comment on above: Glucose result [...] g/dL 32-36 [facility] Mean platelet volume determi nationOrdered By: Gustabo [...] mmol/L 3.5-5.1 [facility] RBC Auto (Bld) [#/Vol]Ordere d By: Gustabo Pérez on 04-17-2024 RBC (Bld) [#/Vol] 4.52 10*6/uL Low 4.6-6.2 [facility] Serum anion gap measurementO rdered By: Gustabo Pérez on 04-17-2024 Anion gap [Moles/Vol] 4 mmol/L Low 5-15 [facility] Serum or plasma calcium francine urement (mass/volume)Ordered By: Gustabo Pérez on 04-17-2024 Calcium [Mass/Vol] 9.0 mg/dL 8.5-10.1 [facility] Serum or plasma creatinine m easurement (mass/volume)Ordered By: Gustabo Pérez on 04-17-2024 Creatinine [Mass/Vol] 1.79 mg/dL High 0.70-1.30 [facility] Comment on above: The validity of the calculated GFR & GFRAA in patients over 70 years has not been determined. Clinical correlation is essential. Serum or plasma urea nitroge n measurement (mass/volume)Ordered By: Gustabo Pérez on 04-17-2024 Urea nitrogen [Mass/Vol] 20 mg/dL High 7-18 [facility] Sodium levelOrdered By: Gustabo Pérez on 04-17-2024 Sodium [Moles/Vol] 138 mmol/L 136-145 [facility] White blood cell (WBC) count Ordered By: Gustabo Pérez on 04-17-2024 WBC (Bld) [#/Vol] 8.2 10*3/uL 4.4-11.0 [facility] Office Visit Reporton [address] [facility] Albumin to globulin ratioOrd ered By: Jose Hay on 03-23-2024 Albumin/Globulin [Mass ratio] 1.1 {ratio} 0.9-2.4 [facility] Bilirubin, totalOrdered By: Jose Hay on 03-23-2024 Bilirubin [Mass/Vol] 2.00 mg/dL High 0.20-1.00 [facility] Comment on above: For patients on eltr ombopag therapy, use of Dimension [place] TBIL is not recommended. Blood urea nitrogen (BUN)/cr eatinine ratioOrdered By: Jose Hay on 03-23-2024 Urea nitrogen/Creatinine [Mass ratio] 18.0 mg/mg 10-20 [facility] Carbon dioxide measurementOr dered By: Jose Hay on 03-23-2024 CO2 [Moles/Vol] 28.0 mmol/L 21.0-32.0 [facility] Chloride measurementOrdered By: Jose Hay on 03-23-2024 Chloride [Moles/Vol] 104 mmol/L 98-107 [facility] Comprehensive Metabolic Prof ilon 03-23-2024 Albumin [Mass/Vol] 3.7 g/dL Normal 3.2-5.0 [facility] Comment on above: Order Comment: DR REMY ORDERED BMP AND MAGNESIUM.DR HAY ORDERED LIPID CMP TSH. RANGLE Performed By: #### L 500.4050, L501.9520, L501.5200, L500.4100 ####[facility] [address] [place], [place], [id number] Albumin/Globulin [Mass ratio] 1.1 {ratio} Normal 0.9-2.4 [facility] Comment on above: Order Comment: DR REMY ORDERED BMP AND MAGNESIUM.DR HAY ORDERED LIPID CMP TSH. RANGLE Performed By: #### L 500.4050, L501.9520, L501.5200, L500.4100 ####[facility] [address] [place], [address] ALK P 92 U/L Normal 45-117 [facility] Comment on above: Order Comment: DR REMY ORDERED BMP AND MAGNESIUM.DR HAY ORDERED LIPID CMP TSH. RANGLE Performed By: #### L 500.4050, L501.9520, L501.5200, L500.4100 ####[facility] [address] [place], [address] ALT [Catalytic activity/Vol] 52 U/L Normal 16-61 [facility] Comment on above: Order Comment: DR REMY ORDERED BMP AND MAGNESIUM.DR HAY ORDERED LIPID CMP TSH. RANGLE Performed By: #### L 500.4050, L501.9520, L501.5200, L500.4100 ####[facility] [address] [place], [address] AST [Catalytic activity/Vol] 28 U/L Normal 15-37 [facility] Comment on above: Order Comment: DR REMY ORDERED BMP AND MAGNESIUM.DR HAY ORDERED LIPID CMP TSH. RANGLE Performed By: #### L 500.4050, L501.9520, L501.5200, L500.4100 ####[facility] [address] [place], [address] Bilirubin [Mass/Vol] 2.00 mg/dL High 0.20-1.00 [facility] Comment on above: Order Comment: DR REMY ORDERED BMP AND MAGNESIUM.DR HAY ORDERED LIPID CMP TSH. RANGLE Result Comment: For patients on eltrombopag therapy, use of Dimension [place] TBIL is not recommended. Performed By: #### L 500.4050, L501.9520, L501.5200, L500.4100 ####[facility] [address] [place], [address] BUN/CRE 18.0 RATIO Normal 10-20 [facility] Comment on above: Order Comment: DR REMY ORDERED BMP AND MAGNESIUM.DR HAY ORDERED LIPID CMP TSH. RANGLE Performed By: #### L 500.4050, L501.9520, L501.5200, L500.4100 ####[facility] [address] [place], [address] CA,Total 8.8 mg/dL Normal 8.5-10.1 [facility] Comment on above: Order Comment: DR REMY ORDERED BMP AND MAGNESIUM.DR HAY ORDERED LIPID CMP TSH. RANGLE Performed By: #### L 500.4050, L501.9520, L501.5200, L500.4100 ####[facility] [address] [place], [address] Chloride [Moles/Vol] 104 mmol/L Normal 98-107 [facility] Comment on above: Order Comment: DR REMY ORDERED BMP AND MAGNESIUM.DR HAY ORDERED LIPID CMP TSH. RANGLE Performed By: #### L 500.4050, L501.9520, L501.5200, L500.4100 ####[facility] [address] [place], [address] CO2 [Moles/Vol] 28.0 mmol/L Normal 21.0-32.0 [facility] Comment on above: Order Comment: DR REMY ORDERED BMP AND MAGNESIUM.DR HAY ORDERED LIPID CMP TSH. RANGLE Performed By: #### L 500.4050, L501.9520, L501.5200, L500.4100 ####[facility] [address] [place], [address] Creatinine [Mass/Vol] 1.67 mg/dL High 0.70-1.30 [facility] Comment on above: Order Comment: DR REMY ORDERED BMP AND MAGNESIUM.DR HAY ORDERED LIPID CMP TSH. RANGLE Result Comment: The validity of the calculated GFR GFRAA in patients over70 years has not been determined. Clinical correlation isessential. Performed By: #### L 500.4050, L501.9520, L501.5200, L500.4100 ####[facility] [address] [place], [address] EST GFR - AA 51 mL/min Low >60 [facility] Comment on above: Order Comment: DR REMY ORDERED BMP AND MAGNESIUM.DR HAY ORDERED LIPID CMP TSH. RANGLE Result Comment: Afri can [place] GFR Calc Performed By: #### L 500.4050, L501.9520, L501.5200, L500.4100 ####[facility] [address] [place], [address] GAP 6 Normal 5-15 [facility] Comment on above: Order Comment: DR REMY ORDERED BMP AND MAGNESIUM.DR HAY ORDERED LIPID CMP TSH. RANGLE Performed By: #### L 500.4050, L501.9520, L501.5200, L500.4100 ####[facility] [address] [place], [address] GFR/1.73 sq M.predicted among non-blacks MDRD (S/P/Bld) [Vol rate/Area] 42 mL/min/{1.73_m2} Low >60 [facility] Comment on above: Order Comment: DR REMY ORDERED BMP AND MAGNESIUM.DR HAY ORDERED LIPID CMP TSH. RANGLE Result Comment: Non- GFR Calc Performed By: #### L 500.4050, L501.9520, L501.5200, L500.4100 ####[facility] [address] [place], [address] Globulin (S) [Mass/Vol] 3.3 g/dL Normal 2.2-4.2 [facility] Comment on above: Order Comment: DR REMY ORDERED BMP AND MAGNESIUM.DR HAY ORDERED LIPID CMP TSH. RANGLE Performed By: #### L 500.4050, L501.9520, L501.5200, L500.4100 ####[facility] [address] [place], [address] Glucose [Mass/Vol] 146 mg/dL High 74-106 [facility] Comment on above: Order Comment: DR REMY ORDERED BMP AND MAGNESIUM.DR HAY ORDERED LIPID CMP TSH. RANGLE Result Comment: Fast ing Glucose result greater than or equal to 126 mg/dLsuggests DIABETES MELLITUS per A.D.A. criteria. Performed By: #### L 500.4050, L501.9520, L501.5200, L500.4100 ####[facility] [address] [place], [address] Potassium [Moles/Vol] 4.4 mmol/L Normal 3.5-5.1 [facility] Comment on above: Order Comment: DR REMY ORDERED BMP AND MAGNESIUM.DR HAY ORDERED LIPID CMP TSH. RANGLE Performed By: #### L 500.4050, L501.9520, L501.5200, L500.4100 ####[facility] [address] [place], [address] Sodium [Moles/Vol] 138 mmol/L Normal 136-145 [facility] Comment on above: Order Comment: DR REMY ORDERED BMP AND MAGNESIUM.DR HAY ORDERED LIPID CMP TSH. RANGLE Performed By: #### L 500.4050, L501.9520, L501.5200, L500.4100 ####[facility] [address] [place], [address] T PROT 7.0 g/dL Normal 6.4-8.2 [facility] Comment on above: Order Comment: DR REMY ORDERED BMP AND MAGNESIUM.DR HAY ORDERED LIPID CMP TSH. RANGLE Performed By: #### L 500.4050, L501.9520, L501.5200, L500.4100 ####[facility] [address] [place], [address] Urea nitrogen [Mass/Vol] 30 mg/dL High 7-18 [facility] Comment on above: Order Comment: DR REMY ORDERED BMP AND MAGNESIUM.DR HAY ORDERED LIPID CMP TSH. RANGLE Performed By: #### L 500.4050, L501.9520, L501.5200, L500.4100 ####[facility] [address] [place], [address] Estimated glomerular filtrat ion rate (GFR) AmericanOrdered [...] 03-23-2024 Glucose [Mass/Vol] 146 mg/dL High 74-106 [facility] Comment on above: Fasting Glucose [...] [Mass/Vol] 158 mg/dL Normal [address] [facility] Comment on above: Order Comment: DR REMY ORDERED BMP AND MAGNESIUM.DR HAY ORDERED LIPID CMP TSH. RANGLE Result Comment: <200 mg/dL Desirable 200-240 mg/dL Borderline >240 mg/dL High Risk Performed By: #### L 500.4050, L501.9520, L501.5200, L500.4100 ####[facility] [address] [place], [address] Cholesterol in HDL [Mass/Vol] 52 mg/dL Normal [...] 500.4050, L501.9520, L501.5200, L500.4100 ####[facility] [address] [place], [address] Cholesterol in LDL [Mass/Vol] 61 mg/dL Normal 0-130 [facility] Comment on above: Order Comment: DR REMY ORDERED BMP AND MAGNESIUM.DR HAY ORDERED LIPID CMP TSH. RANGLE Performed By: #### L 500.4050, L501.9520, L501.5200, L500.4100 ####[facility] [address] [place], [address] Cholesterol in VLDL [Mass/Vol] 45 mg/dL High 5-40 [facility] Comment on above: Order Comment: DR REMY ORDERED BMP AND MAGNESIUM.DR HAY ORDERED LIPID CMP TSH. RANGLE Performed By: #### L 500.4050, L501.9520, L501.5200, L500.4100 ####[facility] [address] [place], [address] Triglyceride [Mass/Vol] 225 mg/dL High [facility] [...] 500.4050, L501.9520, L501.5200, L500.4100 ####[facility] [address] [place], [address] Low density lipoprotein (LDL ) cholesterol measurementOrdered By: Jose Hay on 03-23-2024 Cholesterol in LDL [Mass/Vol] 61 mg/dL 0-130 [facility] Magnesiumon 03-23-2024 Magnesium [Mass/Vol] 2.1 mg/dL Normal 1.6-2.6 [facility] Comment on above: Order Comment: DR REMY ORDERED BMP AND MAGNESIUM.DR HAY ORDERED LIPID CMP TSH. RANGLE Performed By: #### L 500.4050, L501.9520, L501.5200, L500.4100 ####[facility] [address] [place], [place], [address] Magnesium measurementOrdered By: Jose Hay on 03-23-2024 Magnesium [Mass/Vol] 2.1 mg/dL 1.6-2.6 [facility] Potassium measurementOrdered By: Jose Hay on 03-23-2024 Potassium [Moles/Vol] 4.4 mmol/L 3.5-5.1 [facility] Serum anion gap measurementO rdered By: Jose Hay on 03-23-2024 Anion gap [Moles/Vol] 6 mmol/L 5-15 [facility] Serum globulin measurementOr dered By: Jose Hay on 03-23-2024 Globulin (S) [Mass/Vol] 3.3 g/dL 2.2-4.2 [facility] Serum or plasma alanine guerrero otransferase (ALT) measurementOrdered By: Jose Hay on 03-23-2024 ALT [Catalytic activity/Vol] 52 U/L 16-61 [facility] Serum or plasma albumin francine urement (mass/volume)Ordered By: Jose Hay on 03-23-2024 Albumin [Mass/Vol] 3.7 g/dL 3.2-5.0 [facility] Serum or plasma alkaline bell sphatase measurementOrdered By: Jose Hay on 03-23-2024 ALP [Catalytic activity/Vol] 92 U/L 45-117 [facility] Serum or plasma calcium francine urement (mass/volume)Ordered By: Jose Hay on 03-23-2024 Calcium [Mass/Vol] 8.8 mg/dL 8.5-10.1 [facility] Serum or plasma cholesterol measurement (mass/volume)Ordered By: Jose Hay on 03-23-2024 Cholesterol [Mass/Vol] 158 mg/dL <[address] [facility] Comment on above: <200 mg/dL Desirable 200-240 mg/dL Borderline >240 mg/dL High Risk Serum or plasma creatinine m easurement (mass/volume)Ordered By: Jose Hay on 03-23-2024 Creatinine [Mass/Vol] 1.67 mg/dL High 0.70-1.30 [facility] Comment on above: The validity of the calculated GFR & GFRAA in patients over 70 years has not been determined. Clinical correlation is essential. Serum or plasma urea nitroge n measurement (mass/volume)Ordered By: Jose Hay on 03-23-2024 Urea nitrogen [Mass/Vol] 30 mg/dL High 7-18 [facility] Sodium levelOrdered By: Ernst Hay on 03-23-2024 Sodium [Moles/Vol] 138 mmol/L 136-145 [facility] TSH QnOrdered By: Jose rodriguez on 03-23-2024 Thyroid Stimulating Hormone (TSH) 5.340 uIU/mL High 0.358-3.74 0 [facility] Thyroid Stim Hormone (TSH)on 03-23-2024 TSH 5.340 uIU/mL High 0.358-3.74 0 [facility] Comment on above: Order Comment: DR REMY ORDERED BMP AND MAGNESIUM.DR HAY ORDERED LIPID CMP TSH. RANGLE Performed By: #### L 500.4050, L501.9548, L501.5200, L500.4100 ####[facility] [address] [place], [address] Total proteinOrdered By: Emmanuel Hay on 03-23-2024 Protein [Mass/Vol] 7.0 g/dL 6.4-8.2 [facility] Triglycerides measurementOrd ered By: Jose [...] on 05-07-2023 Chloride [Moles/Vol] 103 mmol/L 98-107 [facility] Glucose [Mass/Vol] 172 mg/dL 74-106 [facility] Comment on above: Fasting Glucose resu lt greater than or equal to 126 mg/dL suggests DIABETES MELLITUS per A.D.A. criteria. Potassium [Moles/Vol] 3.7 mmol/L 3.5-5.1 [facility] Sodium [Moles/Vol] 138 mmol/L 136-145 [facility] Laboratory - Chemistry and C [...] on 05-07-2023 Calcium [Mass/Vol] 8.6 mg/dL 8.5-10.1 [facility] Serum or plasma creatinine m easurement (mass/volume)Ordered By: Marycarmen Rodriguez on 05-07-2023 Creatinine [Mass/Vol] 1.22 mg/dL 0.70-1.30 [facility] Comment on above: The validity of the [...] on 12-15-2022 Chloride [Moles/Vol] 110 mmol/L 98-107 [facility] Glucose [Mass/Vol] 121 mg/dL 74-106 [facility] Comment on above: Fasting Glucose resu lt from 100 to 125 mg/dL suggests IMPAIRED HOMEOSTASIS per A.D.A. criteria. Potassium [Moles/Vol] 4.0 mmol/L 3.5-5.1 [facility] Sodium [Moles/Vol] 139 mmol/L 136-145 [facility] WBC (Bld) [#/Vol] 7.3 10*3/uL 4.4-11.0 [facility] Blood erythrocytes count (nu mber/volume)Ordered By: Jose Hay on 12-15-2022 RBC (Bld) [#/Vol] 5.18 10*6/uL 4.6-6.2 [facility] Blood hemoglobin measurement (mass/volume)Ordered By: Jose [...] g/dL 32-36 [facility] No Panel InformationOrdered By: Jose Hay on [...] on 12-15-2022 Calcium [Mass/Vol] 8.8 mg/dL 8.5-10.1 [facility] Serum or plasma creatinine m easurement (mass/volume)Ordered By: Jose Hay on 12-15-2022 Creatinine [Mass/Vol] 1.11 mg/dL 0.70-1.30 [facility] Comment on above: The validity of the [...] Medical Center Chloride [Moles/Vol] 106 mmol/L 98-107 [facility] Eosinophils/100 WBC (Bld) 1.4 % 0-5 [facility] Glucose [Mass/Vol] 277 mg/dL 74-106 [facility] Comment on above: Glucose result great er than or equal to 200 mg/dLsuggests DIABETES MELLITUS per A.D.A. criteria. Neutrophils (Bld) [#/Vol] 4.0 10*3/uL 2.0-7.7 [facility] Neutrophils/100 WBC (Bld) 68.5 % 47-70 [facility] Potassium [Moles/Vol] 4.1 mmol/L 3.5-5.1 [facility] Sodium [Moles/Vol] 139 mmol/L 136-145 [facility] WBC (Bld) [#/Vol] 5.8 10*3/uL 4.4-11.0 [facility] Blood erythrocytes count (nu mber/volume)Ordered By: Luz Elena Mckeon on 10-13-2022 RBC (Bld) [#/Vol] 4.66 10*6/uL 4.6-6.2 [facility] Blood hemoglobin measurement (mass/volume)Ordered By: Luz [...] Center Free T4 [Mass/Vol] 0.77 ng/dL 0.76-1.46 [facility] Magnesium [Mass/Vol] 2.1 mg/dL 1.6-2.6 [facility] Natriuretic peptide B (Bld) [Mass/Vol] 47.2 [...] g/dL 32-36 [facility] No Panel InformationOrdered By: Luz Elena Mckeon [...] on 10-13-2022 Calcium [Mass/Vol] 8.5 mg/dL 8.5-10.1 [facility] Serum or plasma creatinine m easurement (mass/volume)Ordered By: Luz Elena Mckeon on 10-13-2022 Creatinine [Mass/Vol] 1.45 mg/dL 0.70-1.30 [facility] Comment on above: The validity of the [...] on 09-21-2022 Glucose [Mass/Vol] 193 mg/dL 74-106 [facility] Comment on above: MANAGEMENT OF PATIEN T CARE PER NURSING PROTOCOL Absolute lymphocyte countOrd ered By: Dr. Leo on 09-18-2022 Lymphocytes Auto (Unsp spec) [#/Vol] 1.83 10*3/uL 0.83-4.51 [facility] Basophil percentageOrdered B y: Dr. Leo on 09-18-2022 Basophils/100 WBC (Bld) 0.3 % 0-1 [facility] Bilirubin [Mass/Vol] 1.20 mg/dL 0.20-1.00 [facility] Comment on above: For patients on eltr ombopag therapy, use of Dimension [place] TBIL is not recommended. Chloride [Moles/Vol] 108 mmol/L 98-107 [facility] Cholesterol [Mass/Vol] 114 mg/dL <[address] [facility] Comment on above: <200 mg/dL Desirable 200-240 mg/dL Borderline >240 mg/dL High Risk Eosinophils/100 WBC (Bld) 2.0 % 0-5 [facility] Glucose [Mass/Vol] 87 mg/dL 74-106 [facility] Neutrophils (Bld) [#/Vol] 4.3 10*3/uL 2.0-7.7 [facility] Neutrophils/100 WBC (Bld) 60.9 % 47-70 [facility] Potassium [Moles/Vol] 3.5 mmol/L 3.5-5.1 [facility] Protein [Mass/Vol] 5.9 g/dL 6.4-8.2 [facility] Sodium [Moles/Vol] 142 mmol/L 136-145 [facility] Triglyceride [Mass/Vol] 174 mg/dL <199 [facility] Comment on above: The drugs N-Acetylcy steine and Metamizole may falsely depress this assay.Serum Triglycerides Reference Interval Normal <150 mg/dL Borderline high 150 - 199 mg/dL High 200 - 499 mg/dL Very High > or = 500 mg/dL WBC (Bld) [#/Vol] 7.0 10*3/uL 4.4-11.0 [facility] Blood erythrocytes count (nu mber/volume)Ordered By: Dr. Leo on 09-18-2022 RBC (Bld) [#/Vol] 4.64 10*6/uL 4.6-6.2 [facility] Blood hemoglobin measurement (mass/volume)Ordered By: Dr. [...] g/dL 32-36 [facility] No Panel InformationOrdered By: Dr. Leo on [...] For more information see Policy Stat Procedure [place] High Sensitivity Troponin (TNIH) and attachments. Platelets bldOrdered By: Dr. Leo on 09-18-2022 Platelets (Bld) [#/Vol] 131 10*3/uL 150-450 [facility] Serum or plasma albumin francine urement (mass/volume)Ordered By: Dr. Leo on 09-18-2022 Albumin [Mass/Vol] 2.9 g/dL 3.2-5.0 [facility] Serum or plasma albumin/glob ulin mass ratioOrdered By: Dr. Leo on 09-18-2022 Albumin/Globulin [Mass ratio] 1.0 {ratio} 0.9-2.4 [facility] Serum or plasma calcium francine urement (mass/volume)Ordered By: Dr. Leo on 09-18-2022 Calcium [Mass/Vol] 7.6 mg/dL 8.5-10.1 [facility] Serum or plasma cholesterol in [...] mg/dL 0.70-1.30 [facility] Comment on above: The validity of the [...] on 09-17-2022 Magnesium [Mass/Vol] 2.3 mg/dL 1.6-2.6 [facility] Laboratory - CoagulationOrde red By: Dr. Hall on 09-17-2022 aPTT Coag (Bld) [Time] 32.1 s 24.1-36.[address] [facility] PT Coag (PPP) [Time] 12.3 s 11.7-14.9 [facility] Basophil percentageOrdered B y: Dr. Hay on 09-01-2022 Bilirubin [Mass/Vol] 0.70 mg/dL 0.20-1.00 [facility] Comment on above: For patients on eltr ombopag therapy, use of Dimension [place] TBIL is not recommended. Chloride [Moles/Vol] 112 mmol/L 98-107 [facility] Glucose [Mass/Vol] 151 mg/dL 74-106 [facility] Comment on above: Fasting Glucose resu lt greater than or equal to 126 mg/dL suggests DIABETES MELLITUS per A.D.A. criteria. Potassium [Moles/Vol] 3.9 mmol/L 3.5-5.1 [facility] Protein [Mass/Vol] 5.7 g/dL 6.4-8.2 [facility] Sodium [Moles/Vol] 142 mmol/L 136-145 [facility] WBC (Bld) [#/Vol] 4.7 10*3/uL 4.4-11.0 [facility] Blood erythrocytes count (nu mber/volume)Ordered By: Dr. Hay on 09-01-2022 RBC (Bld) [#/Vol] 4.60 10*6/uL 4.6-6.2 [facility] Blood hemoglobin measurement (mass/volume)Ordered By: Dr. [...] g/dL 32-36 [facility] No Panel InformationOrdered By: Dr. Hay on 05-02-2023 Estimated Creatinine Clearance Calc 46.51 ml/min [facility] [...] on 09-01-2022 Albumin [Mass/Vol] 2.8 g/dL 3.2-5.0 [facility] Serum or plasma albumin/glob ulin mass ratioOrdered By: Dr. Hay on 09-01-2022 Albumin/Globulin [Mass ratio] 1.0 {ratio} 0.9-2.4 [facility] Serum or plasma calcium francine urement (mass/volume)Ordered By: Dr. Hay on 09-01-2022 Calcium [Mass/Vol] 8.0 mg/dL 8.5-10.1 [facility] Serum or plasma creatinine m easurement (mass/volume)Ordered By: Dr. Hay on 09-01-2022 Creatinine [Mass/Vol] 1.33 mg/dL 0.70-1.30 [facility] Comment on above: The validity of the [...] on 08-19-2022 Chloride [Moles/Vol] 108 mmol/L 98-107 [facility] Glucose [Mass/Vol] 158 mg/dL 74-106 [facility] Comment on above: Fasting Glucose resu lt greater than or equal to 126 mg/dL suggests DIABETES MELLITUS per A.D.A. criteria. Potassium [Moles/Vol] 4.3 mmol/L 3.5-5.1 [facility] Sodium [Moles/Vol] 137 mmol/L 136-145 [facility] WBC (Bld) [#/Vol] 8.2 10*3/uL 4.4-11.0 [facility] Blood erythrocytes count (nu mber/volume)Ordered By: Dr. Hay on 08-19-2022 RBC (Bld) [#/Vol] 5.05 10*6/uL 4.6-6.2 [facility] Blood hemoglobin measurement (mass/volume)Ordered By: Dr. [...] (Bld) [Time] 30.9 s 24.1-36.[address] [facility] PT Coag (PPP) [Time] 13.4 s 11.7-14.9 [facility] - Hematology and Cell countsOrdered [...] g/dL 32-36 [facility] No Panel InformationOrdered By: Dr. Hya on 08-19-2022 Estimated GFR (MDRD) Amer 72 [...] on 08-19-2022 Calcium [Mass/Vol] 9.0 mg/dL 8.5-10.1 [facility] Serum or plasma creatinine m easurement (mass/volume)Ordered By: Dr. Hay on 08-19-2022 Creatinine [Mass/Vol] 1.25 mg/dL 0.70-1.30 [facility] Comment on above: The validity of the [...] on 06-11-2022 Chloride [Moles/Vol] 102 mmol/L 98-107 [facility] Glucose [Mass/Vol] 274 mg/dL 74-106 [facility] Comment on above: Glucose result great er than or equal to 200 mg/dLsuggests DIABETES MELLITUS per A.D.A. criteria. Potassium [Moles/Vol] 4.3 mmol/L 3.5-5.1 [facility] Sodium [Moles/Vol] 136 mmol/L 136-145 [facility] Laboratory - Chemistry and C hemistry - challengeOrdered By: Dr. Rodriguez on 06-11-2022 CO2 [Moles/Vol] 24.0 mmol/L 21.0-32.0 [facility] Magnesium [Mass/Vol] 2.2 mg/dL 1.6-2.6 [facility] Urea nitrogen/Creatinine [Mass ratio] 15.7 mg/mg [...] on 06-11-2022 Calcium [Mass/Vol] 8.7 mg/dL 8.5-10.1 [facility] Serum or plasma creatinine m easurement (mass/volume)Ordered By: Dr. Rodriguez on 06-11-2022 Creatinine [Mass/Vol] 1.34 mg/dL 0.70-1.30 [facility] Comment on above: The validity of the calculated GFR & GFRAA in patients over 70 years has not been determined. Clinical correlation is essential. Serum or plasma urea nitroge n measurement (mass/volume)Ordered By: Dr. Rodriguez on 02-09-2023 Urea nitrogen [Mass/Vol] 21 mg/dL 7-18 [facility] Chloride [Moles/Vol] 106 mmol/L 98-107 [facility] Eosinophils/100 WBC (Bld) 1.5 % 0-5 [facility] Glucose [Mass/Vol] 211 mg/dL 74-106 [facility] Comment on above: Glucose result great er than or equal to 200 mg/dLsuggests DIABETES MELLITUS per A.D.A. criteria. Neutrophils (Bld) [#/Vol] 3.8 10*3/uL 2.0-7.7 [facility] Neutrophils/100 WBC (Bld) 61.3 % 47-70 [facility] Potassium [Moles/Vol] 4.4 mmol/L 3.5-5.1 [facility] Sodium [Moles/Vol] 136 mmol/L 136-145 [facility] WBC (Bld) [#/Vol] 6.2 10*3/uL 4.4-11.0 [facility] Blood erythrocytes count (nu mber/volume)Ordered By: Luz Elena Mckeon on 04-14-2022 RBC (Bld) [#/Vol] 4.87 10*6/uL 4.6-6.2 [facility] Blood hemoglobin measurement (mass/volume)Ordered By: Luz [...] g/dL 32-36 [facility] No Panel InformationOrdered By: Luz Elena Mckeon on 04-14-2022 Estimated GFR (MDRD) Amer 81 mL/min >60 [facility] Comment on above: GFR Calc Estimated GFR (MDRD) Non-Af Amer 67 mL/min >60 [facility] Comment on above: Non- GFR Calc Platelets bldOrdered By: Loco Mckeon on 04-14-2022 Platelets (Bld) [#/Vol] 150 10*3/uL 150-450 [facility] Serum or plasma calcium francine urement (mass/volume)Ordered By: Luz Elena Mckeon on 04-14-2022 Calcium [Mass/Vol] 8.4 mg/dL 8.5-10.1 [facility] Serum or plasma creatinine m easurement (mass/volume)Ordered By: Luz Elena Mckeon on 04-14-2022 Creatinine [Mass/Vol] 1.13 mg/dL 0.70-1.30 [facility] Comment on above: The validity of the [...] Work Phone: Chloride [Moles/Vol] 106 mmol/L 98-107 [facility] Work Phone: Eosinophils/100 WBC (Bld) 1.2 % 0-5 [facility] Work Phone: Glucose [Mass/Vol] 166 mg/dL 74-106 [facility] Work Phone: Comment on above: Fasting Glucose resu lt greater than or equal to 126 mg/dL suggests DIABETES MELLITUS per A.D.A. criteria. Neutrophils (Bld) [#/Vol] 4.7 10*3/uL 2.0-7.7 [facility] Work Phone: Neutrophils/100 WBC (Bld) 69.8 % 47-70 [facility] Work Phone: Potassium [Moles/Vol] 4.2 mmol/L 3.5-5.1 [facility] Work Phone: Sodium [Moles/Vol] 140 mmol/L 136-145 [facility] Work Phone: WBC (Bld) [#/Vol] 6.7 10*3/uL 4.4-11.0 [facility] Work Phone: Blood erythrocytes count (nu mber/volume)on 11-21-2021 RBC (Bld) [#/Vol] 5.06 10*6/uL 4.6-6.2 [facility] Work Phone: Blood hemoglobin measurement (mass/volume)on [...] fL 80-94 [facility] Work Phone: [phone] Hematocrit Auto (Bld) [Volum e fraction]on 11-21-2021 Hematocrit (Bld) [Volume fraction] 45.1 % 40-54 [facility] Work Phone: [phone] Laboratory - Chemistry and C hemistry - challengeon 11-21-2021 CO2 [Moles/Vol] 27.0 mmol/L 21.0-32.0 [facility] Work Phone: [phone] Natriuretic peptide B (Bld) [Mass/Vol] 60.9 pg/mL 0-100 [facility] Work Phone: [phone] Urea nitrogen/Creatinine [Mass ratio] 12.9 mg/mg 10-20 [facility] Work Phone: [phone] Laboratory - Hematology and Cell countson 11-21-2021 Erythrocyte distribution width (RBC) [Entitic vol] 45.1 fL 35.1-43.9 [facility] Work Phone: [phone] Erythrocyte distribution width (RBC) [Ratio] 14.0 % 11.6-14.6 [facility] Work Phone: [phone] Immature granulocytes/100 WBC (Bld) 0.400 % 0.0-0.9 [facility] Work Phone: [phone] Comment on above: IG% - Immature Granu locytes (promyelocytes, myelocytes and metamyelocytes) > 1% indicates that a LEFT SHIFT is Present. MCH (RBC) [Entitic mass] 28.3 pg 27.0-32.0 [facility] Work Phone: [phone] Nucleated RBC/100 WBC (Bld) [Ratio] 0 % 0-5 [facility] Work Phone: [phone] MCHC Auto (RBC) [Mass/Vol]on 11-21-2021 MCHC (RBC) [Mass/Vol] 31.7 g/dL 32-36 [facility] Work Phone: [phone] Panel Informationon 11-21 Estimated GFR (MDRD) [...] (mass/volume)on 11-21-2021 Calcium [Mass/Vol] 8.9 mg/dL 8.5-10.1 [facility] Work Phone: Serum or plasma creatinine m easurement (mass/volume)on 11-21-2021 Creatinine [Mass/Vol] 1.40 mg/dL 0.70-1.30 [facility] Work Phone: Comment on above: The validity [...] Work Phone: Chloride [Moles/Vol] 104 mmol/L 98-107 [facility] Work Phone: Eosinophils/100 WBC (Bld) 1.4 % 0-5 [facility] Work Phone: Glucose [Mass/Vol] 170 mg/dL 74-106 [facility] Work Phone: [phone] Comment on above: Fasting Glucose resu lt greater than or equal to 126 mg/dL suggests DIABETES MELLITUS per A.D.A. criteria. Neutrophils (Bld) [#/Vol] 5.0 10*3/uL 2.0-7.7 [facility] Work Phone: [phone] Neutrophils/100 WBC (Bld) 62.3 % 47-70 [facility] Work Phone: [phone] Potassium [Moles/Vol] 4.4 mmol/L 3.5-5.1 [facility] Work Phone: [phone] Comment on above: Slight Hemolysis, Re sult may be falsely increased. Sodium [Moles/Vol] 137 mmol/L 136-145 [facility] Work Phone: [phone] WBC (Bld) [#/Vol] 7.9 10*3/uL 4.4-11.0 [facility] Work Phone: [phone] Blood erythrocytes count (nu mber/volume)on 11-16-2021 RBC (Bld) [#/Vol] 5.42 10*6/uL 4.6-6.2 [facility] Work Phone: [phone] Blood hemoglobin measurement (mass/volume)on 11-16-2021 Hemoglobin (Bld) [Mass/Vol] 15.6 g/dL 13.0-16.5 [facility] Work Phone: [phone] Blood lymphocytes/100 leukoc yteson 11-16-2021 Lymphocytes/100 WBC (Bld) 26.0 % 19-41 [facility] Work Phone: [phone] Blood monocytes/100 leukocyt eson 11-16-2021 Monocytes/100 WBC (Bld) 9.6 % 0-10 [facility] Work Phone: [phone] Blood platelet mean volumeon 11-16-2021 Platelet mean volume (Bld) [Entitic vol] 12.9 fL 6.2-12.0 [facility] Work Phone: [phone] Determination of erythrocyte mean corpuscular volume (MCV)on 11-16-2021 MCV (RBC) [Entitic vol] 89.3 fL 80-94 [facility] Work Phone: [phone] Hematocrit Auto (Bld) [Volum e fraction]on 11-16-2021 Hematocrit (Bld) [Volume fraction] 48.4 % 40-54 [facility] Work Phone: [phone] Laboratory - Chemistry and C hemistry - challengeon 11-16-2021 CO2 [Moles/Vol] 27.0 mmol/L 21.0-32.0 [facility] Work Phone: [phone] Urea nitrogen/Creatinine [Mass ratio] 11.6 mg/mg 10-20 [facility] Work Phone: [phone] Laboratory - Hematology and Cell countson 11-16-2021 Erythrocyte distribution width (RBC) [Entitic vol] 44.5 fL 35.1-43.9 [facility] Work Phone: [phone] Erythrocyte distribution width (RBC) [Ratio] 13.8 % 11.6-14.6 [facility] Work Phone: [phone] Immature granulocytes/100 WBC (Bld) 0.400 % 0.0-0.9 [facility] Work Phone: [phone] Comment on above: IG% - Immature Granu locytes (promyelocytes, myelocytes and metamyelocytes) > 1% indicates that a LEFT SHIFT is Present. MCH (RBC) [Entitic mass] 28.8 pg 27.0-32.0 [facility] Work Phone: [phone] Nucleated RBC/100 WBC (Bld) [Ratio] 0 % 0-5 [facility] Work Phone: [phone] MCHC Auto (RBC) [Mass/Vol]on 11-16-2021 MCHC (RBC) [Mass/Vol] 32.2 g/dL 32-36 [facility] Work Phone: [phone] Panel Informationon 11-16 Troponin I High Sensitivity 7 pg/mL 3.0-78.0 [facility] Work Phone: Comment on above: Please Note: New Jana t Units and Gender Specific Reference Ranges. For more information see Policy Stat Procedure [place] High Sensitivity Troponin (TNIH) and attachments. Estimated [...] (mass/volume)on 11-16-2021 Calcium [Mass/Vol] 9.2 mg/dL 8.5-10.1 [facility] Work Phone: Serum or plasma creatinine m easurement (mass/volume)on 11-16-2021 Creatinine [Mass/Vol] 1.38 mg/dL 0.70-1.30 [facility] Work Phone: Comment on above: The validity [...] percentageon 2021 Chloride [Moles/Vol] 105 mmol/L 98-107 [facility] Work Phone: Glucose [Mass/Vol] 246 mg/dL 74-106 [facility] Work Phone: Comment on above: Glucose result great er than or equal to 200 mg/dLsuggests DIABETES MELLITUS per A.D.A. criteria. Potassium [Moles/Vol] 4.2 mmol/L 3.5-5.1 [facility] Work Phone: Sodium [Moles/Vol] 137 mmol/L 136-145 [facility] Work Phone: Laboratory - Chemistry and C hemistry - challengeon 10-28-2021 CO2 [Moles/Vol] 24.0 mmol/L 21.0-32.0 [facility] Work Phone: [phone] Urea nitrogen/Creatinine [Mass ratio] 15.6 mg/mg 10-20 [...] (mass/volume)on 10-28-2021 Calcium [Mass/Vol] 8.9 mg/dL 8.5-10.1 [facility] Work Phone: Serum or plasma creatinine m easurement (mass/volume)on 10-28-2021 Creatinine [Mass/Vol] 1.22 mg/dL 0.70-1.30 [facility] Work Phone: Comment on above: The validity of the calculated GFR & GFRAA in patients over 70 years has not been determined. Clinical correlation is essential. Serum or plasma urea nitroge n measurement (mass/volume)on 10-28-2021 Urea nitrogen [Mass/Vol] 19 mg/dL 7-18 [facility] Work Phone: [phone] Thin prep Papanicolaou smear with manual screeningon 10-28-2021 Thin prep Papanicolaou smear with manual screening 8 5-15 [facility] Work Phone: [phone] Whole blood hemoglobin A1c/t otal hemoglobin ratio [...] Work Phone: Chloride [Moles/Vol] 107 mmol/L 98-107 [facility] Work Phone: Eosinophils/100 WBC (Bld) 1.7 % 0-5 [facility] Work Phone: [phone] Glucose [Mass/Vol] 134 mg/dL 74-106 [facility] Work Phone: Comment on above: Fasting Glucose resu lt greater than or equal to 126 mg/dL suggests DIABETES MELLITUS per A.D.A. criteria. Neutrophils (Bld) [#/Vol] 4.4 10*3/uL 2.0-7.7 [facility] Work Phone: Neutrophils/100 WBC (Bld) 68.0 % 47-70 [facility] Work Phone: Potassium [Moles/Vol] 4.3 mmol/L 3.5-5.1 [facility] Work Phone: Sodium [Moles/Vol] 139 mmol/L 136-145 [facility] Work Phone: WBC (Bld) [#/Vol] 6.4 10*3/uL 4.4-11.0 [facility] Work Phone: [phone] Blood erythrocytes count (nu mber/volume)on 09-16-2021 RBC (Bld) [#/Vol] 4.84 10*6/uL 4.6-6.2 [facility] Work Phone: Blood hemoglobin measurement (mass/volume)on [...] % 0-5 [facility] Work Phone: [phone] MCHC Auto (RBC) [Mass/Vol]on 09-16-2021 MCHC (RBC) [Mass/Vol] 32.3 g/dL 32-36 [facility] Work Phone: No Panel Informationon 09-16 Estimated GFR (MDRD) Amer 73 mL/min >60 [facility] Work Phone: Comment on above: GFR Calc Estimated GFR (MDRD) Non-Af Amer 60 mL/min >60 [facility] Work Phone: Comment on above: Non- GFR Calc Platelets bldon 09-16-2021 Platelets (Bld) [#/Vol] 133 10*3/uL 150-450 [facility] Work Phone: [phone] Serum or plasma calcium francine urement (mass/volume)on 09-16-2021 Calcium [Mass/Vol] 9.0 mg/dL 8.5-10.1 [facility] Work Phone: [phone] Serum or plasma creatinine m easurement (mass/volume)on 09-16-2021 Creatinine [Mass/Vol] 1.24 mg/dL 0.70-1.30 [facility] Work Phone: Comment on above: The validity [...] 5 5-15 [facility] Work Phone: Absolute lymphocyte counton 06-10-2021 Lymphocytes Auto (Unsp spec) [#/Vol] 1.00 10*3/uL 0.83-4.51 [facility] Work Phone: Basophil percentageon 2021 Basophils/100 WBC (Bld) 0.3 % 0-1 [facility] Work Phone: Chloride [Moles/Vol] 107 mmol/L 98-107 [facility] Work Phone: Eosinophils/100 WBC (Bld) 1.7 % 0-5 [facility] Work Phone: Glucose [Mass/Vol] 150 mg/dL 74-106 [facility] Work Phone: Comment on above: Fasting Glucose resu lt greater than or equal to 126 mg/dL suggests DIABETES MELLITUS per A.D.A. criteria. Neutrophils (Bld) [#/Vol] 4.9 10*3/uL 2.0-7.7 [facility] Work Phone: Neutrophils/100 WBC (Bld) 73.8 % 47-70 [facility] Work Phone: Potassium [Moles/Vol] 5.6 mmol/L 3.5-5.1 [facility] Work Phone: Comment on above: Moderate Hemolysis, Result may be falsely increased. Sodium [Moles/Vol] 139 mmol/L 136-145 [facility] Work Phone: WBC (Bld) [#/Vol] 6.7 10*3/uL 4.4-11.0 [facility] Work Phone: Blood erythrocytes count (nu mber/volume)on 06-10-2021 RBC (Bld) [#/Vol] 5.17 10*6/uL 4.6-6.2 [facility] Work Phone: Blood hemoglobin measurement (mass/volume)on 06-10-2021 Hemoglobin (Bld) [Mass/Vol] 15.5 g/dL 13.0-16.5 [facility] Work Phone: Blood lymphocytes/100 leukoc yteson 06-10-2021 Lymphocytes/100 WBC (Bld) 15.0 % 19-41 [facility] Work Phone: [phone] Blood monocytes/100 leukocyt eson 06-10-2021 Monocytes/100 WBC [...] mg/mg 10-20 [facility] Work Phone: [phone] Laboratory - Hematology and Cell countson 06-10-2021 Erythrocyte distribution width (RBC) [Entitic vol] 45.9 fL 35.1-43.9 [facility] Work Phone: [phone] Erythrocyte distribution width (RBC) [Ratio] 14.1 % 11.6-14.6 [facility] Work Phone: Immature granulocytes/100 WBC (Bld) 0.500 % 0.0-0.9 [facility] Work Phone: Comment on above: IG% - Immature Granu locytes (promyelocytes, myelocytes and metamyelocytes) > 1% indicates that a LEFT SHIFT is Present. MCH (RBC) [Entitic mass] 30.0 pg 27.0-32.0 [facility] Work Phone: [phone] Nucleated RBC/100 WBC (Bld) [Ratio] 0 % 0-5 [facility] Work Phone: [phone] MCHC Auto (RBC) [Mass/Vol]on 06-10-2021 MCHC (RBC) [Mass/Vol] 33.5 g/dL 32-36 [facility] Work Phone: [phone] Panel Informationon 06-10 Troponin I High Sensitivity 10 pg/mL 3.0-78.0 [facility] Work Phone: [phone] Comment on above: Please Note: New Jana t Units and Gender Specific Reference Ranges. For more information see Policy Stat Procedure [place] High Sensitivity Troponin (TNIH) and attachments. Estimated Creatinine Clearance Calc 47.63 ml/min [facility] Work Phone: Estimated GFR (MDRD) Amer 67 mL/min >60 [facility] Work Phone: [phone] Comment on above: GFR Calc Estimated GFR (MDRD) Non-Af Amer 55 mL/min >60 [facility] Work Phone: [phone] Comment on above: Non- GFR Calc Platelets bldon 06-10-2021 Platelets (Bld) [#/Vol] 146 10*3/uL 150-450 [facility] Work Phone: [phone] Serum or plasma calcium francine urement (mass/volume)on 06-10-2021 Calcium [Mass/Vol] 8.7 mg/dL 8.5-10.1 [facility] Work Phone: [phone] Serum or plasma creatinine m easurement (mass/volume)on 06-10-2021 Creatinine [Mass/Vol] 1.34 mg/dL 0.70-1.30 [facility] Work Phone: Comment on above: The validity [...] Work Phone: Bilirubin [Mass/Vol] 1.20 mg/dL 0.20-1.00 [facility] Work Phone: Comment on above: For patients on eltr ombopag therapy, use of Dimension [place] TBIL is not recommended. Chloride [Moles/Vol] 106 mmol/L 98-107 [facility] Work Phone: Eosinophils/100 WBC (Bld) 1.2 % 0-5 [facility] Work Phone: Glucose [Mass/Vol] 182 mg/dL 74-106 [facility] Work Phone: Comment on above: Fasting Glucose resu lt greater than or equal to 126 mg/dL suggests DIABETES MELLITUS per A.D.A. criteria. Neutrophils (Bld) [#/Vol] 6.6 10*3/uL 2.0-7.7 [facility] Work Phone: Neutrophils/100 WBC (Bld) 70.5 % 47-70 [facility] Work Phone: Potassium [Moles/Vol] 3.8 mmol/L 3.5-5.1 [facility] Work Phone: [phone] Protein [Mass/Vol] 7.9 g/dL 6.4-8.2 [facility] Work Phone: Sodium [Moles/Vol] 139 mmol/L 136-145 [facility] Work Phone: WBC (Bld) [#/Vol] 9.4 10*3/uL 4.4-11.0 [facility] Work Phone: Basophil percentage 0 SEEN /hpf [facility] Work Phone: Bilirubin Test strip Ql (U)o n 05-19-2021 Bilirubin Ql (U) Negative Negative [facility] Work Phone: Blood erythrocytes count (nu mber/volume)on 05-19-2021 RBC (Bld) [#/Vol] 5.30 10*6/uL 4.6-6.2 [facility] Work Phone: Blood hemoglobin measurement (mass/volume)on 05-19-2021 Hemoglobin (Bld) [Mass/Vol] 15.3 g/dL 13.0-16.5 [facility] Work Phone: Blood lymphocytes/100 leukoc yteson 05-19-2021 Lymphocytes/100 WBC (Bld) 18.3 % 19-41 [facility] Work Phone: Blood monocytes/100 leukocyt eson 05-19-2021 Monocytes/100 WBC (Bld) 9.3 % 0-10 [facility] Work Phone: [phone] Blood platelet mean volumeon 05-19-2021 Platelet mean volume (Bld) [Entitic vol] 12.5 fL 6.2-12.0 [facility] Work Phone: Determination of erythrocyte mean corpuscular volume (MCV)on 05-19-2021 MCV (RBC) [Entitic vol] 89.8 fL 80-94 [facility] Work Phone: Hematocrit Auto (Bld) [Volum e fraction]on 05-19-2021 Hematocrit (Bld) [Volume fraction] 47.6 % 40-54 [facility] Work Phone: [phone] Ketones Test strip Ql (U)on 05-19-2021 Ketones Ql (U) Negative Negative [facility] Work Phone: [phone] Laboratory - Chemistry and C hemistry - challengeon 05-19-2021 ALP [Catalytic activity/Vol] 156 U/L 45-117 [facility] Work Phone: [phone] ALT [Catalytic activity/Vol] 44 U/L 16-61 [facility] Work Phone: [phone] CO2 [Moles/Vol] 26.0 mmol/L 21.0-32.0 [facility] Work Phone: [phone] Globulin (S) [Mass/Vol] 4.2 g/dL 2.2-4.2 [facility] Work Phone: [phone] Lipase [Catalytic activity/Vol] 199 U/L 73-393 [facility] Work Phone: [phone] Urea nitrogen/Creatinine [Mass ratio] 13.8 mg/mg 10-20 [facility] Work Phone: [phone] Laboratory - Hematology and Cell countson 05-19-2021 Erythrocyte distribution width (RBC) [Entitic vol] 46.7 fL 35.1-43.9 [facility] Work Phone: [phone] Erythrocyte distribution width (RBC) [Ratio] 14.3 % 11.6-14.6 [facility] Work Phone: [phone] Immature granulocytes/100 WBC (Bld) 0.300 % 0.0-0.9 [facility] Work Phone: [phone] Comment on above: IG% - Immature Granu locytes (promyelocytes, myelocytes and metamyelocytes) > 1% indicates that a LEFT SHIFT is Present. MCH (RBC) [Entitic mass] 28.9 pg 27.0-32.0 [facility] Work Phone: Nucleated RBC/100 WBC (Bld) [Ratio] 0 % 0-5 [facility] Work Phone: [phone] MCHC Auto (RBC) [Mass/Vol]on 05-19-2021 MCHC (RBC) [Mass/Vol] 32.1 g/dL 32-36 [facility] Work Phone: Mucus LM Ql (Urine sed)on Mucus Ql (Urine sed) 0 SEEN /hpf [facility] Work Phone: Nitrite Test strip Ql (U)on 05-19-2021 Nitrite Ql (U) Negative Negative [facility] Work Phone: [phone] Panel Informationon 05-19 Estimated Creatinine Clearance Calc 46.25 ml/min [facility] Work Phone: [phone] Estimated GFR (MDRD) Amer 65 mL/min >60 [facility] Work Phone: [phone] Comment on above: GFR Calc Estimated GFR (MDRD) Non-Af Amer 53 mL/min >60 [facility] Work Phone: [phone] Comment on above: Non- GFR Calc Platelets bldon 05-19-2021 Platelets (Bld) [#/Vol] 158 10*3/uL 150-450 [facility] Work Phone: Protein Test strip Ql (U)on 05-19-2021 Protein Ql (U) Negative Negative [facility] Work Phone: [phone] Serum or plasma albumin francine urement (mass/volume)on 05-19-2021 Albumin [Mass/Vol] 3.7 g/dL 3.2-5.0 [facility] Work Phone: [phone] Serum or plasma albumin/glob ulin mass ratioon 05-19-2021 Albumin/Globulin [Mass ratio] 0.9 {ratio} 0.9-2.4 [facility] Work Phone: [phone] Serum or plasma calcium francine urement (mass/volume)on 05-19-2021 Calcium [Mass/Vol] 9.2 mg/dL 8.5-10.1 [facility] Work Phone: [phone] Serum or plasma creatinine m easurement (mass/volume)on 05-19-2021 Creatinine [Mass/Vol] 1.38 mg/dL 0.70-1.30 [facility] Work Phone: Comment on above: The validity of the calculated GFR & GFRAA in patients over 70 years has not been determined. Clinical correlation is essential. Serum or plasma urea nitroge n measurement (mass/volume)on 05-19-2021 Urea nitrogen [Mass/Vol] 19 mg/dL 7-18 [facility] Work Phone: [phone] Squamous epithelial cells de tection in urine sediment by light microscopyon 05-19-2021 Epithelial cells.squamous LM Ql (Urine sed) 0 SEEN /hpf [facility] Work Phone: Thin prep Papanicolaou smear with manual screeningon 05-19-2021 Thin prep Papanicolaou smear with manual screening 25 U/L 15-37 [facility] Work Phone: [phone] Thin prep Papanicolaou smear with manual screening 7 5-15 [facility] Work Phone: Urine blood detectionon 05-03 RBC Ql (U) Negative Negative [facility] Work Phone: [phone] RBC Ql (U) 0 SEEN /hpf [facility] Work Phone: [phone] Urine clarityon 05-19-2021 Clarity (U) Clear Clear [facility] Work Phone: Urine color determinationon 05-19-2021 Color (U) Straw Yellow [facility] Work Phone: Urine glucose detectionon Glucose Ql (U) Normal mg/dl Normal [facility] Work Phone: Urine leukocyte esterase det ection by dipstickon 05-19-2021 Leukocyte esterase Test strip Ql (U) Negative Negative [facility] Work Phone: [phone] Urine pHon 05-19-2021 pH (U) 5.0 [pH] [facility] Work Phone: [phone] Urine sediment bacteria coun t by microscopy (number/high power field)on 05-19-2021 Bacteria LM.HPF (Urine sed) [#/Area] 0 /[HPF] None Seen [facility] Work Phone: Urine specific gravity measu rementon 05-19-2021 Specific gravity (U) [Rel density] 1.010 [facility] Work Phone: Urobilinogen Auto test strip Ql (U)on 05-19-2021 Urobilinogen Ql (U) Normal mg/dl Normal [facility] Work Phone: CT ANGIOGRAM AORTA CHEST ABD [...] descending thoracic aorta is tortuous within its [id number] course but is not aneurysmal. The abdominal [...] particularly at L4-L5 and L5-S1. IMAGING FACILITY: [facility]. 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 Physician: PROCEDURE(S) PERFORMED: Clinical History: Prior smoker, quit date: Diabetes Mellitus: Yes Hypertension: Yes Dyslipidemia: Yes Prior AR: Yes Other: Stroke Prior PCI: Yes 2016 [...] right femoral artery - 6F. 10 cm Cook Catheters were advanced using standard guide wire [...] Equipment: Sheath(s) [employer] 4F MICROPUNCTURE KIT AppMesh 6F 10CM Cook SHEATH Wire(s) [employer] J WIRE FIXED MERIT .035 X 150CM GUIDEWIRE Catheter(s) Appian JR4 DIAG CATH 6F Appian JR4 DIAG CATH 6F Appian PIGTAIL STRAIGHT DIAG CATH 6F See Nursing Notes for further details Signed By Eladio Ingram MD On 01/10/2021 11:05:05 Eladio Ingram MD _ _ Normal [facility] ECHOCARDIOGRAM 2D COMPLETEOr dered By: Eladio Ingram on 10-15-2020 Aortic valve area 2.81545 cm [facility] AV mean gradient 6 mmHg [facility] EF 62.7797 % [facility] Patient Info Name: Jina RICO Age: 75 years : 1945 Gender: Male Ht: 175 cm Wt: 106 kg BSA: 2.31 m2 HR: 50 bpm BP: 134 / 72 mmHg Heart Rhythm: Bradycardia, Sinus Rhythm Technical Quality: Fair, Technically difficult Exam Date: 10/15/2020 12:57 PM Patient Status: Outpatient Event Decorator And Designer: Tracy Bonilla, DRU, RVT Exam Type: ECHOCARDIOGRAM COMPLETE W CONTRAST Study Info Indications - Dyspnea Attending Physician: ELADIO INGRAM Referring Physician: ELADIO INGRAM ; [id number] BMI: 34.56 kg/m2 Summary 1. Left ventricular systolic function is normal, with ejection fraction estimated at 60 +/- 5%. 2. The left ventricular diastolic function is normal. 3. 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 4. There is no aortic valve stenosis. History/Risk Factors Hypertension: Yes Dyslipidemia: Yes Diabetic Therapy: Oral Peripheral Arterial Disease (PAD): Yes Myocardial Infarction (AR): Yes Coronary Artery Disease (CAD) Yes Congestive Heart Failure (CHF): Hx CHF Date of Prior AR: 05/03/2008 Diabetes Mellitus: Yes History/Risk Factors sleep [...] m/s (more content not included)... [facility] Interface, Rad In artlab [employer] - 10/15/2020 4:30 PM EDT Patient Info Name: GERRY RICO Age: 75 years : 1945 Gender: Male Ht: 175 cm Wt: 106 kg BSA: 2.31 m2 HR: 50 bpm BP: 134 / 72 mmHg Heart Rhythm: Bradycardia, Sinus Rhythm Technical Quality: Fair, Technically difficult Exam Date: 10/15/2020 12:57 PM Patient Status: Outpatient Event Decorator And Designer: Tracy Bonilla RDCS, RVT Exam Type: ECHOCARDIOGRAM COMPLETE W CONTRAST Study Info Indications - Dyspnea Attending Physician: ELADIO INGRAM Referring Physician: ELADIO INGRAM ; [id number] BMI: 34.56 kg/m2 Summary 1. Left ventricular systolic function is normal, with ejection fraction estimated at 60 +/- 5%. 2. The left ventricular diastolic function is normal. 3. 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 4. There is no aortic valve stenosis. History/Risk Factors Hypertension: Yes Dyslipidemia: Yes Diabetic Therapy: Oral Peripheral Arterial Disease (PAD): Yes Myocardial Infarction (AR): Yes Coronary Artery Disease (CAD) Yes Congestive Heart Failure (CHF): Hx CHF Date of Prior AR: 05/03/2008 Diabetes Mellitus: Yes History/Risk Factors sleep [...] mmHg MV VTI 46 cm MV Decel [place] 333 cm/s2 MV PHT 38 ms MV Area (PHT) 5.8 cm2 4.0-5.0 MV Area (Cont Eq VTI) 2.5 cm2 MV Area Index (Cont Eq VTI) 1.06 cm2/m2 MV Di (more content not included)... [facility] ECHOCARDIOGRAM COMPLETE W CO NTRASTon 10-15-2020 ECHOCARDIOGRAM COMPLETE W CONTRAST Patient Info Name: GERRY RICO Age: 75 years : 1945 Gender: Male Ht: 175 cm Wt: 106 kg BSA: 2.31 m2 HR: 50 bpm BP: 134 / 72 mmHg Heart Rhythm: Bradycardia, Sinus Rhythm Technical Quality: Fair, Technically difficult Exam Date: 10/15/2020 12:57 PM Patient Status: Outpatient Event Decorator And Designer: Tracy Bonilla, DRU, T Exam Type: ECHOCARDIOGRAM COMPLETE W CONTRAST Study Info Indications - Dyspnea Attending Physician: ELADIO INGRAM Referring Physician: ELADIO INGRAM ; [id number] BMI: 34.56 kg/m2 Summary 1. Left ventricular systolic function is normal, with ejection fraction estimated at 60 +/- 5%. 2. The left ventricular diastolic function is normal. 3. 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 4. There is no aortic valve stenosis. History/Risk Factors Hypertension: Yes Dyslipidemia: Yes Diabetic Therapy: Oral Peripheral Arterial Disease (PAD): Yes Myocardial Infarction (AR): Yes Coronary Artery Disease (CAD) Yes Congestive Heart Failure (CHF): Hx CHF Date of Prior AR: 05/03/2008 Diabetes Mellitus: Yes History/Risk Factors sleep [...] mmHg MV VTI 46 cm MV Decel [place] 333 cm/s2 MV PHT 38 ms MV Area (PHT) 5.8 cm2 4.0-5.0 MV Area (Cont Eq VTI) 2.5 cm2 MV Area Index (Cont Eq VTI) 1.06 cm2/m2 MV Diastolic Function MV E Peak Velocity 1 m/s MV A Peak Velocity 1 m/s MV E/A 1.2 MV (more content not included)... Normal [facility] Ambulatory ECG 12-LEADOrdered By: Sagar Acuña on 10-09-2020 Atrial Rate [facility] P [place] [facility] P-R Interval [facility] Q-T Interval [facility] Q-T Interval (corrected) [facility] QRS Duration [facility] QTC Calculation (Calros) [facility] R [place] [facility] T [place] [facility] Ventricular Rate [facility] Auto Diffon 09-15-2018 Basophils #/vol (Bld) 0.0 E3/mcL Normal 0.0-0.2 [facility] Comment on above: Order Comment: Order Added by Discern Expert. Performed By: #### 2 [id number] #### [employer] [address] [place] [address] Basophils/100 WBC (Bld) 0.6 % Normal 0.0-2.0 [facility] Comment on above: Order Comment: Order Added by Discern Expert. Performed By: #### 2 [id number] #### [employer] [address] [place] [address]6597 Eos Absolute 0.1 E3/mcL Normal 0.0-0.7 [facility] Comment on above: Order Comment: Order Added by Discern Expert. Performed By: #### 2 [id number] #### [employer] [address] [place] [address]88 Eosinophils/100 WBC (Bld) 2.2 % Normal 0.0-11.0 [facility] Comment on above: Order Comment: Order Added by Kiana Expert. Performed By: #### 2 [id number] #### [employer] [address] [place] [address] Lymphocytes #/vol (Bld) 1.9 E3/mcL Normal 1.2-3.4 [facility] Comment on above: Order Comment: Order Added by Discern Expert. Performed By: #### 2 [id number] #### [employer] [address] [place] [address]249 Lymphocytes/100 WBC (Bld) 31.0 % Normal 20.0-55.0 [facility] Comment on above: Order Comment: Order Added by Discern Expert. Performed By: #### 2 583524 #### [employer] [address] [place] [address] [place] Absolute 0.8 E3/mcL High 0.0-0.7 [facility] Comment on above: Order Comment: Order Added by Discern Expert. Performed By: #### 2 000854 #### [employer] [address] [place] [address] Monocytes/100 WBC (Bld) 13.2 % High 0.0-10.0 [facility] Comment on above: Order Comment: Order Added by Discern Expert. Performed By: #### 2 045907 #### [employer] [address] [place] [address] Neutro Absolute 3.3 E3/mcL Normal 1.4-6.5 [facility] Comment on above: Order Comment: Order Added by Discern Expert. Performed By: #### 2 563187 #### [employer] [address] [place] [address] Neutro Auto 53.0 % Normal 37.0-75.0 [facility] Comment on above: Order Comment: Order Added by Discern Expert. Performed By: #### 2 [id number] #### [employer] [address] [place] [address] BMPon 09-15-2018 Anion gap molar conc 10 mmol/L Normal 10-20 [facility] Comment on above: Performed By: #### 2 [id number] #### [employer] [address] [place] [address] Calcium mass conc 8.4 mg/dL Low 8.6-10.3 [facility] Comment on above: Performed By: #### 2 [id number] #### [employer] [address] [place] [address] Chloride molar conc 105 mmol/L Normal 98-107 [facility] Comment on above: Performed By: #### 2 455226 #### [employer] [address] [place] [address] CO2 molar conc 26.0 mmol/L Normal 21.0-32.0 [facility] Comment on above: Performed By: #### 2 907039 #### [employer] [address] [place] [address] Creatinine mass conc 1.1 mg/dL Normal 0.5-1.3 [facility] Comment on above: Performed By: #### 2 724156 #### [employer] [address] [place] [address] Glucose mass conc 136 mg/dL High 70-99 [facility] Comment on above: Performed By: #### 2 912591 #### [employer] [address] [place] [address] Potassium molar conc 4.1 mmol/L Normal 3.5-5.3 [facility] Comment on above: Performed By: #### 2 104631 #### [employer] [address] [place] [address] Sodium molar conc 137 mmol/L Normal 136-145 [facility] Comment on above: Performed By: #### 2 887794 #### [employer] [address] [place] [address] Urea nitrogen mass conc 19 mg/dL Normal 6-23 [facility] Comment on above: Performed By: #### 2 046278 #### [employer] [facility] [place] [address] Urea nitrogen/Creatinine mass ratio 17.3 ratio Normal 5.4-30.0 [facility] Comment on above: Performed By: #### 2 189792 #### [employer] [address] [place] [address] CBC w/ Auto Diffon 9 Erythrocyte distribution width Ratio (RBC) 14.9 % High 11.5-14.5 [facility] Comment on above: Performed By: #### 2 [id number] #### [facility] [employer] [address] [place] [address] Hematocrit Volume Fraction (Bld) 41.5 % Low 42.0-52.0 [facility] Comment on above: Performed By: #### 2 420255 #### [facility] [employer] [address] [place] [address] Hemoglobin mass conc (Bld) 13.6 g/dL Normal 13.5-18.0 [facility] Comment on above: Performed By: #### 2 611157 #### [employer] [address] [place] [address] MCH Entitic mass (RBC) 29.6 pg Normal 27.0-31.0 [facility] Comment on above: Performed By: #### 2 [id number] #### [employer] [address] [place] [address] 26441 MCHC mass conc (RBC) 32.8 g/dL Low 33.0-37.0 [facility] Comment on above: Performed By: #### 2 094913 #### [employer] [address] [place] [address] MCV Entitic volume (RBC) 90.4 fL Normal 78.0-100.0 [facility] Comment on above: Performed By: #### 2 662429 #### [employer] [address] [place], [place] [id number] Platelet mean volume Entitic volume (Bld) 10.8 fL Normal 7.4-11.0 [facility] Comment on above: Performed By: #### 2 814468 #### [employer] [address] [place] [address] Platelets #/vol (Bld) 137 E3/mcL Normal 130-400 [facility] Comment on above: Performed By: #### 2 561935 #### [employer] [address] [place] [address] RBC #/vol (Bld) 4.59 E6/mcL Normal 3.90-6.10 [facility] Comment on above: Performed By: #### 2 161031 #### [employer] [address] [place] [address] WBC #/vol (Bld) 6.2 E3/mcL Normal 3.6-11.0 [facility] Comment on above: Performed By: #### 2 487099 #### [employer] [address] [place] [address] Glucose POCon 09-15-2018 Glucose mass conc 163 mg/dL High 70-99 [facility] Comment on above: Performed By: #### 2 032046 #### [employer] [address] [place] [address] Glucose mass conc 99 mg/dL Normal 70-99 [facility] Comment on above: Performed By: #### 2 889503 #### [employer] [address] [place], [place] [id number] Troponin-Ion 09-15-2018 Troponin I.cardiac mass conc 0.01 ng/mL Normal 0.00-0.03 [facility] Comment on above: Performed By: #### 2 399193 #### [employer] [address] [place], [place] [id number] eGFRon 09-15-2018 GFR/1.73 sq M predicted among non-blacks MDRD vol rate/area (S/P/Bld) mL/min/{1.73_m2} Normal [facility] Comment on above: Order Comment: Order added by Discern Expert. Performed By: #### 2 617507 #### [employer] [address] [place] [address] Auto Diffon 09-14-2018 Basophils #/vol (Bld) 0.0 E3/mcL Normal 0.0-0.2 [facility] Comment on above: Order Comment: Order Added by Discern Expert. Performed By: #### 2 584745 #### [employer] [facility] [place] [address] Basophils/100 WBC (Bld) 0.6 % Normal 0.0-2.0 [facility] Comment on above: Order Comment: Order Added by Discern Expert. Performed By: #### 2 488970 #### [employer] [address] [place] [address] 27359 Eos Absolute 0.1 E3/mcL Normal 0.0-0.7 [facility] Comment on above: Order Comment: Order Added by Kiana Expert. Performed By: #### 2 614877 #### [employer] [address] [place] [address] 48368 Eosinophils/100 WBC (Bld) 1.7 % Normal 0.0-11.0 [facility] Comment on above: Order Comment: Order Added by Discern Expert. Performed By: #### 2 832498 #### [employer] [address] [place] [address] Lymphocytes #/vol (Bld) 1.2 E3/mcL Normal 1.2-3.4 [facility] Comment on above: Order Comment: Order Added by Discern Expert. Performed By: #### 2 332083 #### [employer] [facility] [place] [address] Lymphocytes/100 WBC (Bld) 16.5 % Low 20.0-55.0 [facility] Comment on above: Order Comment: Order Added by Discern Expert. Performed By: #### 2 373201 #### [employer] [address] [place] [address] [place]es Absolute 0.8 E3/mcL High 0.0-0.7 [facility] Comment on above: Order Comment: Order Added by Discern Expert. Performed By: #### 2 876988 #### [employer] [address] [place] [address] Monocytes/100 WBC (Bld) 11.1 % High 0.0-10.0 [facility] Comment on above: Order Comment: Order Added by Discern Expert. Performed By: #### 2 931522 #### [employer] [address] [place] [address] Neutro Absolute 5.1 E3/mcL Normal 1.4-6.5 [facility] Comment on above: Order Comment: Order Added by Discern Expert. Performed By: #### 2 705564 #### [employer] [address] [place] [id number] Neutro Auto 70.1 % Normal 37.0-75.0 [facility] Comment on above: Order Comment: Order Added by Discern Expert. Performed By: #### 2 846955 #### [employer] [address] [place] [address] BMPon 09-14-2018 Anion gap molar conc 13 mmol/L Normal 10-20 [facility] Comment on above: Performed By: #### 2 931505 #### [facility] [employer] [address] [place] [address] 90068 Calcium mass conc 9.2 mg/dL Normal 8.6-10.3 [facility] Comment on above: Performed By: #### 2 936721 #### [employer] [address] [place] [address] 54568 Chloride molar conc 105 mmol/L Normal 98-107 [facility] Comment on above: Performed By: #### 2 167146 #### [facility] [employer] [address] [place] [address] 84225 CO2 molar conc 24.0 mmol/L Normal 21.0-32.0 [facility] Comment on above: Performed By: #### 2 406789 #### [facility] [employer] [address] [place] [address] Creatinine mass conc 1.2 mg/dL Normal 0.5-1.3 [facility] Comment on above: Performed By: #### 2 054342 #### [employer] [address] [place] [address] 28060 Glucose mass conc 129 mg/dL High 70-99 [facility] Comment on above: Performed By: #### 2 214904 #### [employer] [address] [place] [address] 88633 Potassium molar conc 3.9 mmol/L Normal 3.5-5.3 [facility] Comment on above: Performed By: #### 2 308027 #### [employer] [address] [place] [address] 91410 Sodium molar conc 138 mmol/L Normal 136-145 [facility] Comment on above: Performed By: #### 2 102691 #### [employer] [address] [place] [address] 23397 Urea nitrogen mass conc 19 mg/dL Normal 6-23 [facility] Comment on above: Performed By: #### 2 404096 #### [employer] [address] [place] [address] 29296 Urea nitrogen/Creatinine mass ratio 15.8 ratio Normal 5.4-30.0 [facility] Comment on above: Performed By: #### 2 057674 #### [employer] [address] [place] [address] 35308 CBC w/ Auto Diffon 9 Erythrocyte distribution width Ratio (RBC) 15.2 % High 11.5-14.5 [facility] Comment on above: Performed By: #### 2 567808 #### [employer] [address] [place] [address] 15861 Hematocrit Volume Fraction (Bld) 45.0 % Normal 42.0-52.0 [facility] Comment on above: Performed By: #### 2 760018 #### [employer] [address] [place] [address] Hemoglobin mass conc (Bld) 15.0 g/dL Normal 13.5-18.0 [facility] Comment on above: Performed By: #### 2 762029 #### [employer] [address] [place] [id number] MCH Entitic mass (RBC) 29.8 pg Normal 27.0-31.0 [facility] Comment on above: Performed By: #### 2 968506 #### [employer] [address] [place] [id number] MCHC mass conc (RBC) 33.4 g/dL Normal 33.0-37.0 [facility] Comment on above: Performed By: #### 2 727222 #### [employer] [address] [place] [id number] MCV Entitic volume (RBC) 89.4 fL Normal 78.0-100.0 [facility] Comment on above: Performed By: #### 2 155474 #### [employer] [address] [place] [id number] Platelet mean volume Entitic volume (Bld) 10.8 fL Normal 7.4-11.0 [facility] Comment on above: Performed By: #### 2 576147 #### [employer] [address] [place] [id number] Platelets #/vol (Bld) 158 E3/mcL Normal 130-400 [facility] Comment on above: Performed By: #### 2 222608 #### [employer] [address] [place] [id number] RBC #/vol (Bld) 5.04 E6/mcL Normal 3.90-6.10 [facility] Comment on above: Performed By: #### 2 935996 #### [employer] [address] [place] [address] WBC #/vol (Bld) 7.2 E3/mcL Normal 3.6-11.0 [facility] Comment on above: Performed By: #### 2 767542 #### [employer] [facility] [place] [address] CT Head or Brain w/o Contras ton 09-14-2018 CT Head or Brain w/o Contrast Exam Date/Time: 09/14/2018 15:21 EDT Reason for Exam: Injury Report STUDY: CT Head or Brain w/o Contrast; 09/14/2018 3:21 pm INDICATION: Injury. COMPARISON: 11/28/2016 ACCESSION NUMBER(S): [id number] ORDERING CLINICIAN: Kirsty Nguyen TECHNIQUE: Volume acquisition [...] pm Signed by: Radha Olivarez MD Technologist: Michael [facility] CT Spine Cervical w/o Contra ston 09-14-2018 CT Spine Cervical w/o Contrast Exam Date/Time: 09/14/2018 15:22 EDT Reason for Exam: Trauma Report STUDY: CT Spine Cervical w/o Contrast; 09/14/2018 3:22 pm INDICATION: Trauma. COMPARISON: None. ACCESSION NUMBER(S): [id number] ORDERING CLINICIAN: Kirsty Nguyen TECHNIQUE: Axial CT [...] by: Radha Olivarez MD Technologist: IZAIAH Normal [facility] Glucose POCon 09-14-2018 Glucose mass conc 132 mg/dL High 70-99 [facility] Comment on above: Performed By: #### 2 026420 #### [employer] [facility] [place] [address] [id number] 09-14-2018 Hemoglobin A1c/Hemoglobin.total mass fraction (Bld) 6.9 % High 4.0-6.3 [facility] Comment on above: Performed By: #### 2 230435 #### [employer] [facility] [place] [id number] Magnesiumon 09-14-2018 Magnesium mass conc 2.0 Int._Unit/L Normal 1.6-2.4 [facility] Comment on above: Performed By: #### 2 521020 #### [employer] [address] [place] [address] PTon 09-14-2018 INR Coag RelTime (PPP) 1.0 {INR} Normal 0.9-1.1 [facility] Comment on above: Result Comment: INR Recommended Therapeutic ranges: Prophylaxis/treatment of DVT and PE..........2.0-3.0 Prevention of systemic embolism.................2.0-3.0 Mechanical prosthetic values........................2.5-3.5 CRITICAL VALUE.........................................> 4.0 NOTE: New methodology started 05/16/2018 Performed By: #### 2 [id number] #### [employer] [address] [place] [address] Prothrombin time (PT) Coag time (PPP) 11.8 second(s) Normal 9.7-12.7 [facility] Comment on above: Result Comment: NOTE : New reference range established on 05/16/2018 due to change in methodology. Performed By: #### 2 [id number] #### [employer] [address] [place] [id number] PTTon 09-14-2018 aPTT Coag time (Bld) 32 second(s) Normal 28-38 [facility] Comment on above: Result Comment: NOTE :New reference range established 05/16/2018 due to change in methodology. Performed By: #### 2 348139 #### [employer] [facility] [address] [place] [address] TSHon 09-14-2018 Thyrotropin Qn 5.25 mcIU/mL Normal 0.30-5.60 [facility] Comment on above: Performed By: #### 2 349279 #### [employer] [address] [place] [address] Troponin-Ion 09-14-2018 Troponin I.cardiac mass conc 0.02 ng/mL Normal 0.00-0.03 [facility] Comment on above: Performed By: #### 2 041353 #### [employer] [address] [place] [address] UA Completeon 09-14-2018 Color Nom (U) Straw Normal Yellow [facility] Comment on above: Performed By: #### 2 363304 #### [employer] [address] [place] [id number] Glucose mass conc (U) Negative Normal Negative [facility] Comment on above: Performed By: #### 2 401401 #### [employer] [address] [place] [id number] Ketones Ql (U) Negative Normal Negative [facility] Comment on above: Performed By: #### 2 681766 #### [employer] [address] [place] [address] UA Blood Negative Normal Negative [facility] Comment on above: Performed By: #### 2 583317 #### [employer] [address] [place] [id number] UA Clarity Clear Normal Clear [facility] Comment on above: Performed By: #### 2 493491 #### [employer] [address] [place] [address] UA Hyal Cast 3-5 Abnormal 0-2 [facility] Comment on above: Performed By: #### 2 125845 #### [employer] [address] [place] [address] UA Leuk Est Negative Normal Negative [facility] Comment on above: Performed By: #### 2 120735 #### [employer] [address] [place] [address] UA Mucous Trace Abnormal Trace [facility] Comment on above: Performed By: #### 2 102381 #### [employer] [facility] [address] [place] [address] UA Nitrite Negative Normal Negative [facility] Comment on above: Performed By: #### 2 312914 #### [employer] [facility] [address] [place] [address] UA pH 5.0 Normal 4.6-8.0 [facility] Comment on above: Performed By: #### 2 350693 #### [employer] [address] [place] [address] UA Protein Negative Normal Negative [facility] Comment on above: Performed By: #### 2 867303 #### [employer] [address] [place] [address] UA Spec Grav 1.009 Normal 1.003-1.03 0 [facility] Comment on above: Performed By: #### 2 326863 #### [employer] [facility] [address] [place] [address] UA Urobilinogen Negative Normal [facility] Comment on above: Result Comment: Due to a manufacturing issue, low positive urobilinogen results may be fasely positive. Correlate with urine bilirubin and additional clinical/laboratory findings to assess the risk of hemolytic anemia or liver disease. If clinically indicated, repeat testing with an alternate method is available by contacting the laboratory within 24 hours. Performed By: #### 2 021891 #### [employer] [address] [place] [id number] Urobilinogen Qn (U) Negative Normal Negative [facility] Comment on above: Performed By: #### 2 970338 #### [place] [address] XR Chest AP Portableon 09-14 XR Chest AP Portable Exam Date/Time: 09/14/2018 15:43 EDT Reason for Exam: Chest pain Report STUDY: XR Chest AP Portable; 09/14/2018 3:43 pm INDICATION: Chest pain. COMPARISON: 12/25/2016 ACCESSION NUMBER(S): [id number] ORDERING CLINICIAN: Kirsty Nguyen FINDINGS: CARDIOMEDIASTINAL SILHOUETTE: [...] pm Signed by: Iva Vargas MD Technologist: Liya [facility] XR Humerus Lefton 09-14-2018 XR Humerus Left Exam Date/Time: 09/14/2018 15:43 EDT Reason for Exam: Pain, Traumatic Report STUDY: XR Humerus Left; XR Shoulder Complete Left;; 09/14/2018 3:43 pm INDICATION: Pain, Traumatic. COMPARISON: None. ACCESSION NUMBER(S): [id number]; [id number] ORDERING CLINICIAN: Kirsty Nguyen FINDINGS: Five views [...] INDICATION: Pain, Traumatic. COMPARISON: None. ACCESSION NUMBER(S): [id number] ORDERING CLINICIAN: Kirsty Nguyen FINDINGS: Four views [...] INDICATION: Pain, Traumatic. COMPARISON: None. ACCESSION NUMBER(S): [id number]; [id number] ORDERING CLINICIAN: Kirsty Nguyen FINDINGS: Five views [...] among non-blacks MDRD vol rate/area (S/P/Bld) mL/min/{1.73_m2} [facility] Comment on above: Order Comment: Order added by Discern Expert. Performed By: #### 1 [id number] #### [employer] [facility] [place] [id number] Vital Signs Date Time Vital Sign Value Performing Clinician Facility 01-01-2025 12:20-0400 Body temperature 98.7 [degF] Dr. Marycarmen Rodriguez DO Work Phone: [facility] 01-01-2025 12:20-0400 Diastolic blood pressure 78 mm[Hg] Dr. Marycarmen Rodriguez DO Work Phone: [facility] 01-01-2025 12:20-0400 Heart rate 78 /min Dr. Marycarmen Rodriguez DO Work Phone: [facility] 01-01-2025 12:20-0400 Respiratory rate 16 /min Dr. Marycarmen Rodriguez DO Work Phone: [facility] 01-01-2025 12:20-0400 SaO2% (BldA) [Mass fraction] 99 % Dr. Marycarmen Rodriguez DO Work Phone: [facility] 01-01-2025 12:20-0400 Systolic blood pressure 101 mm[Hg] Dr. Marycarmen Rodriguez DO Work Phone: [facility] 01-01-2025 08:53-0400 Body height 175.[address] Marycarmen Rodriguez DO Work Phone: [facility] 01-01-2025 08:53-0400 Body mass index (BMI) [Ratio] 34 kg/m2 Dr. Marycarmen Rodriguez DO Work Phone: [facility] 01-01-2025 08:53-0400 Body weight 104.[address] Marycarmen Rodriguez DO Work Phone: [facility] 12-26-2024 14:39-0400 Body temperature 98.7 [degF] Dr. Marycarmen Rodriguez DO Work Phone: [facility] 12-26-2024 14:39-0400 Diastolic blood pressure 68 mm[Hg] Dr. Marycarmen Rodriguez DO Work Phone: [facility] 12-26-2024 14:39-0400 Heart rate 88 /min Dr. Marycarmen Rodriguez DO Work Phone: [facility] 12-26-2024 14:39-0400 Respiratory rate 18 /min Dr. Marycarmen Rodriguez DO Work Phone: [facility] 12-26-2024 14:39-0400 SaO2% (BldA) [Mass fraction] 95 % Dr. Marycarmen Rodriguez DO Work Phone: [facility] 12-26-2024 14:39-0400 Systolic blood pressure 104 mm[Hg] Dr. Marycarmen Rodriguez DO Work Phone: [facility] 12-26-2024 07:42-0400 Inhaled oxygen concentration 21 % Dr. Marycarmen Rodriguez DO Work Phone: [facility] 12-26-2024 04:00-0400 Body mass index (BMI) [Ratio] 32 kg/m2 Dr. Marycarmen Rodriguez DO Work Phone: [facility] 12-26-2024 04:00-0400 Body weight 98.[address] Marycarmen Rodriguez DO Work Phone: [facility] 12-25-2024 11:30-0400 Body height 175.[address] Marycarmen Rodriguez DO Work Phone: [facility] 12-20-2024 14:00-0400 Diastolic blood pressure 65 mm[Hg] Dr. Marycarmen Rodriguez DO Work Phone: [facility] 12-20-2024 14:00-0400 Heart rate 63 /min Dr. Marycarmen Rodriguez DO Work Phone: [facility] 12-20-2024 14:00-0400 Respiratory rate 20 /min Dr. Marycarmen Rodriguez DO Work Phone: [facility] 12-20-2024 14:00-0400 SaO2% (BldA) [Mass fraction] 96 % Dr. Marycarmen Rodriguez DO Work Phone: [facility] 12-20-2024 14:00-0400 Systolic blood pressure 103 mm[Hg] Dr. Marycarmen Rodriguez DO Work Phone: [facility] 12-20-2024 13:15-0400 Body temperature 97.7 [degF] Dr. Marycarmen Rodriguez DO Work Phone: [facility] 12-20-2024 11:46-0400 Body mass index (BMI) [Ratio] 31.8 kg/m2 Dr. Marycarmen Rodriguez DO Work Phone: [facility] 12-20-2024 11:46-0400 Body weight 97.[address] Marycarmen Rodriguez DO Work Phone: [facility] 12-17-2024 15:10-0400 Body temperature 97.9 [degF] Dr. Marycarmen Rordiguez DO Work Phone: [facility] 12-17-2024 15:10-0400 Diastolic blood pressure 82 mm[Hg] Dr. Marycarmen Rodriguez DO Work Phone: [facility] 12-17-2024 15:10-0400 Heart rate 78 /min Dr. Marycarmen Rodriguez DO Work Phone: [facility] 12-17-2024 15:10-0400 Respiratory rate 18 /min Dr. Marycarmen Rodriguez DO Work Phone: [facility] 12-17-2024 15:10-0400 SaO2% (BldA) [Mass fraction] 99 % Dr. Marycarmen Rodriguez DO Work Phone: [facility] 12-17-2024 15:10-0400 Systolic blood pressure 100 mm[Hg] Dr. Marycarmen Rodriguez DO Work Phone: [facility] 12-17-2024 05:06-0400 Body mass index (BMI) [Ratio] 31.3 kg/m2 Dr. Marycarmen Rodriguez DO Work Phone: [facility] 12-17-2024 05:06-0400 Body weight 96.[address] Marycarmen Rodriguez DO Work Phone: [facility] 12-17-2024 02:53-0400 Inhaled oxygen concentration 21 % Dr. Marycarmen Rodriguez DO Work Phone: [facility] 12-16-2024 11:59-0400 Body height 175.[address] Marycarmen Rodriguez DO Work Phone: [facility] 12-12-2024 10:23-0400 Body height 175.[address] Marycarmen Rodriguez DO Work Phone: [facility] 12-12-2024 10:23-0400 Body mass index (BMI) [Ratio] 31.7 kg/m2 Dr. Marycarmen Rodriguez DO Work Phone: [facility] 12-12-2024 10:23-0400 Body weight 97.[address] Marycarmen Rodriguez DO Work Phone: [facility] 12-12-2024 10:23-0400 Diastolic blood pressure 74 mm[Hg] Dr. Marycarmen Rodriguez DO Work Phone: [facility] 12-12-2024 10:23-0400 Heart rate 75 /min Dr. Marycarmen Rodriguez DO Work Phone: [facility] 12-12-2024 10:23-0400 Respiratory rate 16 /min Dr. Marycarmen Rodriguez DO Work Phone: [facility] 12-12-2024 10:23-0400 Systolic blood pressure 106 mm[Hg] Dr. Marycarmen Rodriguez DO Work Phone: [facility] 12-08-2024 12:30-0400 Body temperature 97.7 [degF] Dr. Marycarmen Rodriguez DO Work Phone: [facility] 12-08-2024 12:30-0400 Diastolic blood pressure 81 mm[Hg] Dr. Marycarmen Rodriguez DO Work Phone: [facility] 12-08-2024 12:30-0400 Heart rate 72 /min Dr. Marycarmen Rodriguez DO Work Phone: [facility] 12-08-2024 12:30-0400 Respiratory rate 18 /min Dr. Marycarmen Rodriguez DO Work Phone: [facility] 12-08-2024 12:30-0400 SaO2% (BldA) [Mass fraction] 96 % Dr. Marycarmen Rodriguez DO Work Phone: [facility] 12-08-2024 12:30-0400 Systolic blood pressure 121 mm[Hg] Dr. Marycarmen Rodriguez DO Work Phone: [facility] 12-08-2024 01:20-0400 Inhaled oxygen concentration 21 % Dr. Marycarmen Rodriguez DO Work Phone: [facility] 12-07-2024 17:24-0400 Body height 175.[address] Marycarmen Rodriguez DO Work Phone: [facility] 12-07-2024 17:24-0400 Body mass index (BMI) [Ratio] 32.1 kg/m2 Dr. Marycarmen Rodriguez DO Work Phone: [facility] 12-07-2024 17:24-0400 Body weight 98.[address] Marycarmen Rodriguez DO Work Phone: [facility] 12-07-2024 16:00-0400 SaO2% (BldA) [Mass fraction] 97 % Dr. Marycarmen Rodriguez DO Work Phone: [facility] 12-07-2024 15:13-0400 Body temperature 98.2 [degF] Dr. Marycarmen Rodriguez DO Work Phone: [facility] 12-07-2024 15:13-0400 Diastolic blood pressure 61 mm[Hg] Dr. Marycarmen Rodriguez DO Work Phone: [facility] 12-07-2024 15:13-0400 Heart rate 22 /min Dr. Marycarmen Rodriguez DO Work Phone: [facility] 12-07-2024 15:13-0400 Respiratory rate 22 /min Dr. Marycarmen Rodriguez DO Work Phone: [facility] 12-07-2024 15:13-0400 Systolic blood pressure 114 mm[Hg] Dr. Marycarmen Rodriguez DO Work Phone: [facility] 12-07-2024 11:05-0400 Inhaled oxygen flow rate 2 L/min Dr. Marycarmen Rodriguez DO Work Phone: [facility] 12-07-2024 10:52-0400 Body height 175.[address] Marycarmen Rodriguez DO Work Phone: [facility] 12-07-2024 10:52-0400 Body mass index (BMI) [Ratio] 33.4 kg/m2 Dr. Marycarmen Rodriguez DO Work Phone: [facility] 12-07-2024 10:52-0400 Body weight 102.[address] Marycarmen Rodriguez DO Work Phone: [facility] 12-06-2024 12:45-0400 Body temperature 98 [degF] Dr. Marycarmen Rodriguez DO Work Phone: [facility] 12-06-2024 12:45-0400 Diastolic blood pressure 86 mm[Hg] Dr. Marycarmen Rodriguez DO Work Phone: [facility] 12-06-2024 12:45-0400 Heart rate 84 /min Dr. Marycarmen Rodriguez DO Work Phone: [facility] 12-06-2024 12:45-0400 Respiratory rate 14 /min Dr. Marycarmen Rodriguez DO Work Phone: [facility] 12-06-2024 12:45-0400 SaO2% (BldA) [Mass fraction] 99 % Dr. Marycarmen Rodriguez DO Work Phone: [facility] 12-06-2024 12:45-0400 Systolic blood pressure 126 mm[Hg] Dr. Marycarmen Rodriguez DO Work Phone: [facility] 12-06-2024 06:00-0400 Body mass index (BMI) [Ratio] 33 kg/m2 Dr. Marycarmen Rodriguez DO Work Phone: [facility] 12-06-2024 06:00-0400 Body weight 101.[address] Marycarmen Rodriguez DO Work Phone: [facility] 12-06-2024 00:25-0400 Inhaled oxygen concentration 21 % Dr. Marycarmen Rodriguez DO Work Phone: [facility] 12-05-2024 08:28-0400 Heart rate 70 /min Dr. Marycarmen Rodriguez DO Work Phone: [facility] 12-05-2024 08:06-0400 Body temperature 97.6 [degF] Dr. Marycarmen Rodriguez DO Work Phone: [facility] 12-05-2024 08:06-0400 Diastolic blood pressure 80 mm[Hg] Dr. Marycarmen Rodriguez DO Work Phone: [facility] 12-05-2024 08:06-0400 Respiratory rate 18 /min Dr. Marycarmen Rodriguez DO Work Phone: [facility] 12-05-2024 08:06-0400 SaO2% (BldA) [Mass fraction] 100 % Dr. Marycarmen Rodriguez DO Work Phone: [facility] 12-05-2024 08:06-0400 Systolic blood pressure 123 mm[Hg] Dr. Marycarmen Rodriguez DO Work Phone: [facility] 12-05-2024 05:20-0400 Body mass index (BMI) [Ratio] 33.1 kg/m2 Dr. Marycarmen Rodriguez DO Work Phone: [facility] 12-05-2024 05:20-0400 Body weight 101.[address] Marycarmen Rodriguez DO Work Phone: [facility] 12-04-2024 22:55-0400 Inhaled oxygen concentration 21 % Dr. Marycarmen Rodriguez DO Work Phone: [facility] 12-04-2024 08:07-0400 Inhaled oxygen flow rate 2 L/min Dr. Marycarmen Rodriguez DO Work Phone: [facility] 12-02-2024 21:54-0400 Body height 175.[address] Marycarmen Rodriguez DO Work Phone: [facility] 12-02-2024 20:56-0400 Body temperature 98.8 [degF] Dr. [...] 13:45-0400 Respiratory rate 21 /min Dr. Marycarmen Rodirguez DO Work Phone: [facility] 11-27-2024 [...] [facility] 10-13-2022 10:59-0400 Body height 172.72 cm [facility] 10-13-2022 10:59-0400 Body mass index (BMI) [Ratio] 25.4 kg/m2 [facility] 10-13-2022 10:59-0400 Body weight 75.74 kg [facility] 10-13-2022 10:59-0400 Diastolic blood pressure 75 mm[Hg] [facility] 10-13-2022 10:59-0400 Heart rate 65 /min [facility] 10-13-2022 10:59-0400 Respiratory rate 18 /min Marycarmen [facility] 10-13-2022 10:59-0400 SaO2% (BldA) [Mass fraction] 94 % [facility] 10-13-2022 10:59-0400 Systolic blood pressure 143 mm[Hg] Marycarmen [facility] 09-21-2022 15:30-0400 Body mass index (BMI) [Ratio] 34.7 kg/m2 Marycarmen [facility] 09-21-2022 15:27-0400 Body temperature 98 [degF] Marycarmen [facility] 09-21-2022 15:27-0400 Diastolic blood pressure 84 mm[Hg] Marycarmen [facility] 09-21-2022 15:27-0400 Heart rate 79 /min Marycarmen [facility] 09-21-2022 15:27-0400 Respiratory rate 17 /min Marycarmen [facility] 09-21-2022 15:27-0400 SaO2% (BldA) [Mass fraction] 96 % [facility] 09-21-2022 15:27-0400 Systolic blood pressure 143 mm[Hg] Marycarmen [facility] 09-21-2022 06:25-0400 Body weight 103.6 kg Marycarmen [facility] 09-19-2022 01:30-0400 Inhaled oxygen concentration 21 % Marycarmen [facility] 09-01-2022 09:59-0400 Diastolic blood pressure 68 mm[Hg] Marycarmen [facility] 09-01-2022 09:59-0400 Heart rate 49 /min Marycarmen [facility] 09-01-2022 09:59-0400 Systolic blood pressure 127 mm[Hg] Marycarmen [facility] 09-01-2022 09:57-0400 Body temperature 97.9 [degF] Marycarmen [facility] 09-01-2022 09:57-0400 Respiratory rate 18 /min Marycarmen [facility] 09-01-2022 09:57-0400 SaO2% (BldA) [Mass fraction] 93 % Marycarmen [facility] 09-01-2022 04:08-0400 Body mass index (BMI) [Ratio] 35.2 kg/m2 Marycarmen [facility] 09-01-2022 04:08-0400 Body weight 108.2 kg Marycarmen [facility] 08-31-2022 11:42-0400 Body height 175.26 cm Marycarmen [facility] 08-19-2022 10:01-0400 Body height 175.26 cm Marycarmen [facility] 08-19-2022 10:01-0400 Body mass index (BMI) [Ratio] 35.4 kg/m2 Marycarmen Marly [facility] 08-19-2022 10:01-0400 Body weight 109.03 kg Marycarmen [facility] 08-19-2022 10:01-0400 Diastolic blood pressure 79 mm[Hg] [facility] 08-19-2022 10:01-0400 Heart rate 62 /min Marycarmen [facility] 08-19-2022 10:01-0400 [facility] 18 [facility] 08-19-2022 10:01-0400 Systolic blood pressure 144 mm[Hg] [facility] 04-16-2022 12:43-0500 Body height 175.26 cm [...] index (BMI) [Ratio] 34.9 kg/m2 Dr. Marycarmen oRdriguez Work Phone: [facility] Work Phone: [...] Eladio Ingram MD Work Phone: [facility] 12-26-2020 10:29-0400 Systolic blood pressure 141 mm[Hg] Eladio Ingram MD Work Phone: [facility] 12-26-2020 10:24-0400 Body height 175.3 cm Eladio Ingram MD Work Phone: [facility] 12-26-2020 10:24-0400 Body mass index (BMI) [Ratio] 33.67 kg/m2 Eladio Ingram MD Work Phone: [facility] 12-26-2020 10:24-0400 Body weight 103.42 kg Eladio Ingram MD Work Phone: [facility] 12-26-2020 10:24-0400 Heart rate 59 /min Eladio Ingram MD Work Phone: [facility] 12-26-2020 10:24-0400 SaO2% (BldA) [Mass fraction] 95 % Eladio Ingram MD Work Phone: [facility] 10-09-2020 10:53-0400 Diastolic blood pressure 72 mm[Hg] Sagar Leticiajennifer QUALITY ASSURANCE NURSE Work Phone: [facility] 10-09-2020 10:53-0400 Systolic blood pressure 134 mm[Hg] Sagar Kellyan QUALITY ASSURANCE NURSE Work Phone: [facility] 10-09-2020 09:59-0400 Body mass index (BMI) [Ratio] 34.6 kg/m2 Sagar Kellyjennifer QUALITY ASSURANCE NURSE Work Phone: [facility] 10-09-2020 09:59-0400 Body weight 106.28 kg Sagar Kellyan QUALITY ASSURANCE NURSE Work Phone: [facility] 10-09-2020 09:59-0400 Heart rate 58 /min Sagar Schwan QUALITY ASSURANCE NURSE Work Phone: [facility] 10-09-2020 09:59-0400 Respiratory rate 16 /min Sagar Leticiaan QUALITY ASSURANCE NURSE Work Phone: [facility] 10-09-2020 09:59-0400 SaO2% (BldA) [Mass fraction] 94 % Sagar Acuña QUALITY ASSURANCE NURSE Work Phone: [facility] 12-17-2016 11:21-0400 BMI (Body Mass Index) 32.99 kg/m2 Eladio Ingram [facility] h Work Phone: 12-17-2016 11:21-0400 BP Diastolic 82 mm[Hg] Eladio Ingram [facility] Work Phone: 12-17-2016 11:21-0400 BP Systolic 150 mm[Hg] Eladio Ingram [facility] Work Phone: 12-17-2016 11:21-0400 Height 175.3 cm Eladio Ingram [facility] Work Phone: 12-17-2016 11:21-0400 Pulse (Heart Rate) 70 /min Eladio Ingram [facility] Work Phone: 12-17-2016 11:21-0400 Pulse Oximetry 97 % Eladio Ingram [facility] Work Phone: 12-17-2016 11:21-0400 Weight 101.33 kg Eladio Ingram [facility] Work Phone: Encounters Encounter Date Encounter Type Care Provider Facility Start: 03-26-2025 ambulatory [facility] Facility: [facility] Start: 03-05-2025 End: 03-05-2025 ambulatory [facility] Facility:[facility] Start: 02-21-2025 End: 02-21-2025 Emergency department patient visit [facility] Facility:[facility] Start: 02-19-2025 End: 02-19-2025 Emergency department patient visit [facility] Facility:[facility] Start: 02-09-2025 End: 02-09-2025 ambulatory [facility] Facility:[facility] Start: 02-06-2025 End: 02-07-2025 ambulatory [facility] Facility:[facility] Start: 02-02-2025 End: 02-02-2025 ambulatory [facility] Facility:[facility] Start: 01-20-2025 End: 01-20-2025 Emergency department patient visit [facility] Start: 01-15-2025 End: 01-15-2025 ambulatory [facility] Facility:[facility] Start: 01-11-2025 End: 01-11-2025 ambulatory [facility] Start: 01-03-2025 End: 01-10-2025 Evaluation and management of inpatient DR JEFFREY SPIVEY MD [facility] Start: 01-03-2025 End: 01-03-2025 ambulatory [facility] Start: 01-03-2025 End: 01-03-2025 Emergency department patient visit [facility] Start: 01-02-2025 End: 01-02-2025 ambulatory [facility] Facility:[facility] Start: 01-01-2025 End: 01-01-2025 Dr. Marycarmen Rodriguez DO Work Phone: -Emergency Department Work Phone: Start: 01-01-2025 End: 01-01-2025 Emergency department patient visit Dr. Marycarmen Rodriguez DO Work Phone: -Emergency Department Start: 12-29-2024 ambulatory [facility]: [facility] Start: 12-28-2024 ambulatory [facility] Facility: [facility] Start: 12-28-2024 Boyd Garcia Start: 12-27-2024 End: 12-27-2024 ambulatory [facility] Facility:[facility] Start: 12-27-2024 ambulatory [facility] Facility: [facility] Start: 12-27-2024 Boyd Garcia Start: 12-26-2024 Dr. Eladio Melendez MD -[facility] Work Phone: Start: 12-25-2024 ambulatory [facility] Start: 12-25-2024 [facility] Start: 12-25-2024 ambulatory Opal Schneider ty:[facility] Start: 12-25-2024 Dr. Eladio Melendez MD -[facility] Work Phone: Start: 12-24-2024 ambulatory [facility]: [facility] Start: 12-24-2024 End: 12-26-2024 Evaluation and management of inpatient [facility] Start: 12-24-2024 End: 12-26-2024 Dr. Eladio Melendez MD -Progressive Care Unit Work Phone: Start: 12-21-2024 End: 12-21-2024 ambulatory [facility] Facility:[facility] Start: 12-21-2024 Boyd Rock MD [facility] Jeanine Garcia Start: 12-20-2024 End: 12-20-2024 ambulatory [facility] Start: 12-20-2024 End: 12-20-2024 Dr. Jody Servin MD -Emergency [facility] t Work Phone: Start: 12-20-2024 End: 12-20-2024 Emergency department patient visit Jody Servin Facility:[facility] Start: 12-20-2024 ambulatory [facility]: [facility] Start: 12-20-2024 Boyd Rock MD [facility] Jeanine Garcia Start: 12-18-2024 End: 12-18-2024 ambulatory [facility] Facility:[facility] Start: 12-18-2024 ambulatory [facility]: [facility] Start: 12-18-2024 Boyd Rock MD [facility] Jeanine Garcia Start: 12-17-2024 Dr. Marycarmen collins DO -[facility] Work Phone: Start: 12-16-2024 Dr. Marycarmen collins DO -[facility] Work Phone: Start: 12-16-2024 Dr. Lance Rodriguez MD -[facility] Start: 12-15-2024 End: 12-17-2024 Evaluation and management of inpatient Dr. Marycarmen Rodriguez DO Work Phone: -Progressive Care Unit Start: 12-15-2024 ambulatory Samer Azouz Facility:[facility] Start: 12-15-2024 End: 12-17-2024 Dr. Marycarmen Marlow DO -Progressive Care Unit Work Phone: Start: 12-13-2024 ambulatory [facility]: [facility] Start: 12-13-2024 Boyd Rock MD -[facility] Start: 12-12-2024 End: 12-12-[address] Marycarmen Rodriguez DO Work Phone: -[facility] Start: 12-12-2024 End: 12-12-2024 Dr. Boyd Rock MD -[facility] Work Phone: Start: 12-12-2024 End: 12-12-[address] Marycarmen Rodriguez DO Work Phone: -Laboratory Start: 12-12-2024 End: 12-12-2024 Gustabo Pérez [employer] -Laboratory Work Phone: Start: 12-12-2024 End: 12-12-2024 Gustabo Pérez [employer] -[facility] Work Phone: Start: 12-12-2024 End: 12-12-[address] Marycarmen Rodriguez DO Work Phone: -[facility] Start: 12-12-2024 End: 12-12-2024 ambulatory [facility] Start: 12-08-2024 Dr. Alex Sanon MD -[facility] Work Phone: Start: 12-07-2024 End: 12-07-2024 ambulatory [facility] Facility:[facility] Start: 12-07-2024 End: 12-07-2024 Tess Balderas [employer] -[facility] Work Phone: Start: 12-07-2024 End: 12-08-[address] Marycarmen Rodriguez DO Work Phone: -Progressive Care Unit Start: 12-07-2024 End: 12-08-2024 ambulatory Alex Sanon Facility:[facility] Start: 12-07-2024 End: 12-08-2024 Dr. Shaan Santos [facility] Work Phone: Start: 12-06-2024 End: 12-06-2024 Dr. Marcin Araujo MD -Pulmonary Services/Neurology Work Phone: Start: 12-06-2024 End: 12-06-[address] Marycarmen Rodriguez DO Work Phone: -Pulmonary Services/Neurology Start: 12-06-2024 Dr. Alex Sanon MD -[facility] Work Phone: Start: 12-05-2024 Dr. Alex Sanon MD [facility] Work Phone: Start: 12-05-[address] Marycarmen vera DO Work Phone: [facility] Start: 12-05-2024 Dr. Marcin Araujo MD [facility] Start: 12-04-2024 Dr. Abraham Ridley [facility] Work Phone: Start: 12-04-2024 Dr. Marcin Araujo MD [facility] Start: 12-03-2024 Dr. Ramonita Herron [facility] Work Phone: Start: 12-03-2024 Dr. Marcin Araujo MD [facility] Start: 12-03-2024 ambulatory Mickey Coffman Facility :[facility] Start: 12-03-2024 End: 12-06-2024 Evaluation and management of inpatient Dr. Marycarmen Rodriguez DO Work Phone: -Progressive Care Unit Start: 12-03-2024 End: 12-06-2024 Dr. Alex Sanon MD -[facility] Work Phone: Start: 12-02-2024 Dr. Marcin Araujo MD [facility] Start: 12-02-2024 ambulatory [facility] Facility :[facility] Start: 12-02-2024 Evaluation and manag ement of inpatient Dr. Marycarmen Rodriguez DO Work Phone: -Intensive Care Unit Start: 12-02-2024 Dr. Abraham Ridley DO -Intensive Care Unit Work Phone: Start: 12-02-2024 Dr. Nickie Danielson DO [facility] Work Phone: Start: 12-01-2024 Dr. Marcin Araujo MD -[facility] Start: 11-30-2024 End: 12-02-2024 Evaluation and management of inpatient Dr. Marycarmen Rodriguez DO Work Phone: -Intensive Care Unit Start: 11-30-2024 ambulatory Nickie Danielson Facility:[facility] Start: 11-30-2024 End: 12-02-2024 Dr. Abraham Ridley DO -Intensive Care Unit Work Phone: Start: 11-27-2024 Dr. Jose Hay MD -[facility] Start: 11-27-[address] Marycarmen vera DO Work Phone: -[facility] Start: 11-27-2024 End: 11-28-2024 ambulatory Jose Jose Armando Facility:[facility] Start: 11-27-2024 End: 11-28-2024 [...] Dr. Marycarmen Rodriguez DO Work Phone: -Radiology [facility] Start: 11-22-2024 End: 11-22-2024 Gustabo Pérez [employer] -Radiology [facility] Work Phone: Start: 11-22-2024 End: 11-22-2024 Gustabo Pérez [employer] -[facility] Work Phone: Start: 11-22-2024 End: 11-22-[address] Marycarmen Rodriguez DO Work Phone: -[facility] Start: 11-22-2024 End: 11-22-2024 ambulatory Gustabo Pérez [employer] Facility:[facility] Start: 11-20-2024 End: 11-20-[address] Marycarmen Rodriguez DO Work Phone: -Radiology [facility] Start: 11-20-2024 End: 11-20-2024 Dr. Brooks Carpenter MD -Radiology [facility] Work Phone: Start: 11-20-2024 End: 11-20-2024 ambulatory Brooks Carpenter Facility:[facility] Start: 11-13-2024 ambulatory Gustabo Pérez [employer] Facility :[facility] Start: 11-13-2024 Non-patient / Non-visit Dr. Jose colon MD -[facility] Start: 11-13-2024 Dr. Jose Hay MD -[facility] Start: 11-10-2024 End: 11-10-[address] Marycarmen Rodriguez DO Work Phone: -Sleep Lab Start: 11-10-2024 End: 11-10-2024 Patient encounter procedure [employer] Maren Olivas -Sleep Lab Work Phone: Start: 11-10-2024 End: 11-10-2024 [employer] Maren Olivas -Sleep Lab Work Phone: Start: 11-10-2024 ambulatory Gustabo Pérez [employer] Facility :[facility] Start: 11-10-2024 Non-patient / Non-visit Dr. Lance pereira MD -[facility] Work Phone: Start: 11-10-2024 Dr. [facility] [facility] Work Phone: Start: 11-10-2024 End: 11-10-[address] Marycarmen Rodriguez DO Work Phone: -Cardiovascular Services Start: 11-10-2024 End: 11-10-2024 Patient encounter procedure Gustabo Pérez FLAG MAKER-C -Cardiovascular Services Work Phone: Start: 11-10-2024 End: 11-10-2024 Gustabo Pérez FLAG MAKER-C -Cardiovascular Services Work Phone: Start: 11-09-2024 End: 11-10-[address] Marycarmen Rodriguez DO Work Phone: -Laboratory Ritesh Calvillo [facility] Start: 11-09-2024 End: 11-09-[address] Marycarmen Rodriguez DO -Laboratory Ritesh Calvillo [facility] Start: 11-09-2024 End: 11-09-2024 Dr. Marycarmen Rodriguez DO -[facility] Ritesh Calvillo [facility] Start: 11-09-2024 End: 11-09-2024 ambulatory Marycarmen Rodriguez Facility:[facility] Start: 10-31-2024 End: 10-31-2024 Patient encounter procedure ELIAZAR Olivas -[facility] Work Phone: Start: 10-31-2024 End: 10-31-2024 [address] Olivas [facility] Pulmonary Medicine Work Phone: Start: 10-31-2024 End: 10-31-[address] Marycarmen Rodriguez DO Work Phone: -[facility] Start: 10-26-2024 End: 10-26-[address] Marycarmen Rodriguez DO Work Phone: -Sleep Lab Start: 10-26-2024 End: 10-26-2024 Patient encounter procedure Marni Horn FLAG MAKER-C -Sleep Lab Work Phone: Start: 10-26-2024 End: 10-26-2024 Marni Horn FLAG MAKER-C -Sleep Lab Work Phone: Start: 10-25-2024 End: 10-25-2024 Patient encounter procedure Gustabo Pérez FLAG MAKER-C -[facility] Work Phone: Start: 10-25-2024 End: 10-25-2024 Gustabo Gao Beto FLAG MAKER-C -[facility] Work Phone: Start: 10-25-2024 End: 10-26-[address] Marycarmen Rodriguez DO Work Phone: [facility] Work Phone: Start: 10-18-2024 End: 10-18-[address] Marycarmen Rodriguez DO Work Phone: [facility] Work Phone: Start: 10-18-2024 End: 10-18-2024 Patient encounter procedure Marni Horn FLAG MAKER-C -Sleep Lab Work Phone: Start: 10-18-2024 End: 10-18-2024 Marni Horn FLAG MAKER-C -Sleep Lab Work Phone: Start: 10-18-2024 End: 10-18-[address] Marycarmen Rodriguez DO Work Phone: [facility] Work Phone: Start: 10-18-2024 End: 10-18-[address] Brooks Carpenter MD -Laboratory Work Phone: Start: 10-18-2024 End: 10-18-2024 Dr. Brooks Carpenter MD -Laboratory Work Phone: Start: 10-18-2024 End: 10-18-2024 ambulatory Marycarmen Rodriguez Facility:[facility] Start: 09-29-2024 End: 09-29-[address] Marycarmen Rodriguez DO Work Phone: [facility] Work Phone: Start: 09-29-2024 End: 09-29-[address] Marycarmen Rodriguez DO -Laboratory [place] Work Phone: Start: 09-29-2024 End: 09-29-2024 Dr. Marycarmen Rodriguez DO -Laboratory Ameyaenidw ирина Work Phone: Start: 09-29-2024 End: 09-29-2024 ambulatory [facility] Facility:[facility] Start: 09-22-2024 End: 09-22-[address] Marycarmen Rodriguez DO Work Phone: [facility] Work Phone: Start: 09-22-2024 End: 09-22-2024 Patient encounter procedure Marni Horn FLAG MAKER-C -Sleep Lab Work Phone: Start: 09-22-2024 End: 09-22-2024 Marni Horn FLAG MAKER-C -Sleep Lab Work Phone: Start: 09-22-2024 End: 09-22-2024 ambulatory [facility] Facility:[facility] Start: 09-20-2024 End: 09-20-[address] Marycarmen Rodriguez DO Work Phone: [facility] Work Phone: Start: 09-20-2024 End: 09-20-2024 Patient encounter procedure FLAG MAKER Maren Olivas -Laboratory Work Phone: Start: 09-20-2024 End: 09-20-2024 FLAG MAKER Maren Olivas -Laboratory Work Phone: Start: 09-20-2024 End: 09-20-2024 Patient encounter procedure FLAG MAKER Maren Olivas -[facility] Work Phone: Start: 09-20-2024 End: 09-20-2024 FLAG MAKER Maren Olivas -[facility] Work Phone: Start: 09-20-2024 End: 09-20-[address] Marycarmen Rodriguez DO Work Phone: [facility] Work Phone: Start: 09-20-2024 End: 09-20-2024 ambulatory Marycarmen Marly Facility:[facility] Start: 08-03-2024 End: 08-03-[address] Marycarmen Rodriguez DO Work Phone: [facility] Work Phone: Start: 08-03-2024 End: 08-03-2024 Patient encounter procedure Marni Horn NP-C -Sleep Lab Work Phone: Start: 08-03-2024 End: 08-03-2024 Marni Horn FLAG MAKER-C -Sleep Lab Work Phone: Start: 08-03-2024 End: 08-03-2024 ambulatory Marycarmen Malry Facility:[facility] Start: 07-18-2024 ambulatory Marycarmen [facility] Facility: [facility] [...] Start: 07-17-2024 End: 07-17-2024 ambulatory Marycarmen Marly Facility:[facility] Start: 07-07-2024 End: 07-07-[address] Marycarmen Rodriguez DO Work Phone: [facility] Work Phone: Start: 07-07-2024 End: 07-07-2024 Patient encounter procedure Marni POOL -Sleep Lab Work Phone: Start: 07-07-2024 End: 07-07-2024 ambulatory [facility] Facility:[facility] Start: 07-03-2024 End: 07-03-2024 Patient encounter procedure Marni POOL -[facility] Work Phone: Start: 07-03-2024 End: 07-03-2024 ambulatory [facility] Facility:[facility] Start: 06-30-2024 End: 06-30-[address] Marycarmen Rodriguez DO Work Phone: [facility] Work Phone: Start: 06-30-2024 End: 06-30-2024 Patient encounter procedure Ritesh Laurent [facility] Start: 06-30-2024 End: 06-30-2024 ambulatory [facility] Facility:[facility] Start: 04-17-2024 End: 04-17-2024 Patient encounter procedure Gustabo POOL -[facility] Work Phone: Start: 04-17-2024 End: 04-17-2024 ambulatory [facility] Facility:[facility] Start: 04-17-2024 End: 04-17-2024 ambulatory [facility] Facility:[facility] Start: 03-27-2024 End: 03-27-[address] Jose Hay MD -[facility] Work Phone: Start: 03-27-2024 End: 03-27-2024 ambulatory [facility] Facility:[facility] Start: 03-23-2024 End: 03-23-2024 Patient encounter procedure Ritesh Laurent JENS Start: 03-23-2024 End: 03-23-2024 ambulatory [facility] Facility:[facility] Start: 03-20-2024 End: 03-20-[address] Jose Hay MD -[facility] Work Phone: Start: 03-20-2024 End: 03-20-2024 ambulatory Marycarmen Rodriguez Facility:[facility] Start: 05-07-2023 End: 05-07-2023 ambulatory [facility] Work Phone: Start: 05-07-2023 End: 05-07-2023 Patient encounter procedure [facility]-Laboratory, Ritesh Calvillo [facility] Start: 12-29-2022 Non-patient / Non-visit Dr. Danyelle Rodriguez Work Phone: [facility] [place] Work Phone: Start: 12-28-2022 Non-patient / Non-visit Dr. Danyelle Rodriguez Work Phone: [facility] [place] Start: 12-28-2022 End: 12-28-[address] Marycarmen Rodriguez Work Phone: [facility] Work Phone: Start: 12-28-2022 End: 12-28-[address] Marycarmen Rodriguez Work Phone: [facility]-Cardiovascul ar Services Work Phone: Start: 12-21-2022 End: 12-21-2022 Admission to same day surgery center Dr. Marycarmen Rodriguez Work Phone: [facility]-Medical Anthropology Director/Special Procedures Work Phone: Start: 12-21-2022 End: 12-21-[address] Marycarmen Rodriguez Work Phone: [facility] Work Phone: Start: 12-15-2022 End: 12-15-[address] Marycarmen Rodriguez Work Phone: [facility] Work Phone: Start: 12-15-2022 End: 12-15-[address] Marycarmen Rodriguez Work Phone: [facility]-Laboratory Work Phone: Start: 12-15-2022 End: 12-15-[address] Marycarmen Rodriguez Work Phone: [facility] [place] Work Phone: Start: 10-16-2022 End: 10-16-2022 ambulatory Marycarmen ChiuMarly [facility] Work Phone: Start: 10-16-2022 End: 10-16-2022 Patient encounter procedure Marycarmen Rodriguez [facility]-Pulmonary Services/Neurology Start: 10-13-2022 End: 10-13-2022 ambulatory Marycarmen Marly [facility] Work Phone: Start: 10-13-2022 End: 10-13-2022 Patient encounter procedure Marycarmen Rodriguez [facility] Start: 09-21-2022 Non-patient / Non-visit Marycarmen gifford [facility] Start: 09-20-2022 Non-patient / Non-visit Marycarmen gifford [facility] Start: 09-19-2022 Non-patient / Non-visit Marycarmen adrián gifford [facility] Start: 09-18-2022 Non-patient / Non-visit Marycarmen gifford [facility] Start: 09-17-2022 End: 09-17-2022 Non-patient / Non-visit Marycarmen SWAIN [facility] Start: 09-17-2022 End: 09-21-2022 Evaluation and management of inpatient Marycarmen Rodriguez [facility]-Progressive Care Unit Start: 09-09-2022 Non-patient / Non-visit Marycarmen gifford [facility] Start: 09-01-2022 Non-patient / Non-visit Marycarmen adrián gifford [facility] Start: 08-31-2022 End: 08-31-2022 Non-patient / Non-visit Marycarmen SWAIN [facility] Start: 08-31-2022 Non-patient / Non-visit Marycarmen gifford [facility] Start: 08-31-2022 End: 09-01-2022 Evaluation and management of inpatient Marycarmen Rodriguez [facility]-Progressive Care Unit Start: 08-31-2022 End: 09-01-2022 observation encounter Marycarmen [facility] Work Phone: Start: 08-19-2022 End: 08-19-2022 ambulatory Marycarmen Marly [facility] Work Phone: Start: 08-19-2022 End: 08-19-2022 Patient encounter procedure Marycarmen Marly [facility] Start: 08-11-2022 Non-patient / Non-visit Marycarmen Ministeriodanyelle gifford [facility] Start: 06-11-2022 End: 06-11-[address] Marycarmen Rodriguez Work Phone: [facility] Work Phone: Start: 06-11-2022 End: 06-11-[address] [facility]arm[facility] Rodriguez [facility] Start: 04-21-2022 Non-patient / Non-visit Dr. Danyelle Rodriguez Work Phone: [facility] Start: 04-21-2022 End: 04-21-[address] Marycarmen Rodriguez Work Phone: [facility] Work Phone: Start: 04-21-2022 End: 04-21-[address] Marycarmen Rodriguez Work Phone: [facility]-Cardiovascul ar Services Start: 04-16-2022 End: 04-16-[address] [facility]armen Rodriguez [facility] Start: 04-14-2022 End: 04-14-[address] Marycarmen Rodriguez Work Phone: [facility] Work Phone: Start: 04-14-2022 End: 04-14-[address] Marycarmen Rodriguez Work Phone: [facility] Start: 04-14-2022 End: 04-14-[address] Marycarmen Rodriguez Work Phone: [facility] Start: 03-27-2022 End: 03-27-[address] Marycarmen Rodriguez Work Phone: [facility] Start: 01-20-2022 End: 01-20-[address] [facility]carmen Rodriguez [facility] Start: 01-07-2022 End: 01-07-[address] Marycarmen Rodriguez [facility] Start: 11-27-2021 Non-patient / Non-visit Dr. Danyelle Rodriguez Work Phone: [facility] Start: 11-26-2021 End: 11-26-[address] Marycarmen Rodriguez Work Phone: [facility]-Pulmonary Services/Neurology Start: 11-21-2021 End: 11-21-[address] Marycarmen Rodriguez Work Phone: [facility] Start: 11-16-2021 End: 11-16-2021 Emergency department patient visit Dr. Marycarmen Rodriguez Work Phone: [facility]-Emergency Department Start: 10-28-2021 End: 10-28-[address] Marycarmen Rodriguez Work Phone: [facility]-Laboratory, [place] Start: 09-16-2021 End: 09-16-[address] Marycarmen Rodriguez Work Phone: [facility]-Radiology, [facility] Start: 09-16-2021 End: 09-16-[address] Marycarmen Rodriguez Work Phone: [facility] Start: 08-15-2021 Non-patient / Non-visit Dr. Danyelle Rodriguez Work Phone: [facility] Start: 08-15-2021 Non-patient / Non-visit Dr. Danyelle Rodriguez Work Phone: [facility] Start: 08-15-2021 End: 08-15-[address] Marycarmen Rodriguez Work Phone: [facility]-Cardiovascul ar Services Start: 08-01-2021 End: 08-01-[address] Marycarmen Rodriguez Work Phone: [facility] Start: 06-10-2021 End: 06-10-2021 Emergency department patient visit Dr. Marycarmen Rodriguez Work Phone: [facility]-Emergency Department Start: 05-19-2021 End: 05-19-2021 Emergency department patient visit Dr. Marycarmen Rodriguez Work Phone: [facility]-Emergency Department Start: 05-16-2021 End: 05-16-[address] 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) (Primary Dx) Start: 12-31-2020 [facility]adio Ingram MD [facility] Comment on above: Chest pain, unspecif ied type (Primary Dx) Start: 12-26-2020 End: 12-30-2020 Orders Only Justa Simental RN [facility] Office Start: 12-26-2020 End: 12-26-2020 Office outpatient visit 25 minutes Marycarmen Rodriguez DO Work Phone: [facility] Comment on above: Essential hypertensi on (Primary Dx); 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, unspecified whether karuk or transplanted heart (HCC); 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); Mixed hyperlipidemia Start: 12-18-2020 ambulatory [facility] Start: 10-15-2020 End: 10-16-2020 ambulatory MARYCARMEN HARRISON [facility] Start: 10-15-2020 End: 10-15-2020 Subsequent hospital visit by physician Eladio Ingram MD Work Phone: [facility] Comment on above: Arrived Start: 10-10-2020 ambulatory SAGAR ACUÑA [facility] Ambulatory Start: 10-09-2020 End: 10-09-2020 Orders Only Sagar Acuña CNP Work Phone: [facility] Office Comment on above: DEAN (dyspnea on exer tion) (Primary Dx) Start: 10-09-2020 End: 10-09-2020 Office outpatient new 45 minutes Sagar Acuña CNP Work Phone: [facility] Comment on above: DEAN (dyspnea on exer tion); Essential hypertension; Type 2 diabetes mellitus without complication, without long-term current use of insulin (HCC); MATTHEW (obstructive sleep apnea); Coronary artery disease involving karuk coronary artery of [place] heart without angina pectoris Start: 10-04-2020 End: 10-04-2020 Orders Only Deisi March RN [facility] Office Comment on above: Shortness of breath (Primary Dx) Start: 12-17-2016 Office/outpatient vi sit, est, level 4 Eladio Ingram Work Phone: [facility] Start: 11-28-2016 End: 11-28-2016 Patient encounter procedure [facility] Procedures Date Procedure Procedure Detail Performing [...] Start: 12-24-[address] Danyelle Rodriguez DO Work Phone: Start: 12-24-2024 Calculation of international normalized ratio Dr. Marycarmen Rodriguez DO Work Phone: Start: 12-21-2024 Blood count smear mc rscp w/mnl difrntl wbc count Dr. Marycarmen Rodriguez DO Work Phone: Start: 12-21-2024 Mean corpuscular hemoglobin concentration determination Dr. Marycarmen Rordiguez DO Work Phone: Start: 12-21-2024 Nucleated red [...] Phone: Start: 12-07-[address] Marycarmne Rodriguez DO Work Phone: Start: 12-07-2024 Mean [...] Work Phone: Start: 11-09-2024 Blood count smear rscp w/mnl difrntl wbc count Dr. Marycarmen Rodriguez DO Work Phone: Start: 11-09-2024 Mean corpuscular hemoglobin concentration determination Dr. Marycarmen Rodriguez DO Work Phone: Start: 11-09-2024 Nucleated red blood cell count procedure Dr. Marycarmen Rodriguez DO Work Phone: Start: 11-09-2024 Platelet mean volume determination Dr. Marycarmen Rodriguez DO Work Phone: Start: 10-18-2024 Blood count smear rscp w/mnl difrntl wbc [...] Work Phone: Comment on above: Test Ordered: [id number] G13-Fhiroa+II7Qlycejurcmkh Screen, Urine Negative ng/mL UI Reference Range: Ujyupa=662Slbvqhfujka test includes Amphetamine and Methamphetamine.Barbiturates Negative ng/mL UI Reference Range: Miyhlk=234Dcvepvrozgcxuxb Negative ng/mL UI Reference Range: Adnktn=849Eecrujd (Metab.), Urine Negative ng/mL UI Reference Range: Psheye=901Kexqykb Note: ng/mL UI See Final Results Reference Range: Mzrsrz=564Tkldkc test includes Codeine, Morphine, Hydromorphone, Hydrocodone.Opiates Positive [A ] UI Reference Range: Nzyfns=885Ycoipe test includes Codeine, Morphine, Hydromorphone, Hydrocodone.Codeine Negative UI Reference Range: Ouzhwe=385Xshzztpc Negative UI Reference Range: Dosubw=051Bkfokattheteu Negative UI Reference Range: Hjdjtx=269Idzbcpwkdja Positive [A ] UI Reference Range: .Hydrocodone Conf, MS, UR 349 ng/mL UI Reference Range: Akktae=7861-Akguoatmiyiysf, Urine Negative ng/mL UI Reference Range: Cutoff=10Oxycodone/Oxymorphone, Urine Negative ng/mL UI Reference Range: Fvpbgm=502Uplc includes Oxycodone and OxymorphonePCP, Urine Negative ng/mL UI Reference Range: Cutoff=25Methadone Screen, Urine Negative ng/mL UI Reference Range: Nbsagn=213Sgaljoyblsec, Urine Negative ng/mL UI Reference Range: Pkqpsn=801Eshladjx, Urine Negative ng/mL UI Reference Range: Cutoff=2.0Test includes Fentanyl and NorfentanylThis test was developed and its performance characteristicsdetermined by [facility]. It has not been cleared orapproved by the Food and Drug Administration.Tramadol Negative ng/mL UI Reference Range: Bhaocl=151Yivqjamkenqag, Urine Negative ng/mL UI Reference Range: Cutoff=10Creatinine, Urine 36.9 mg/dL UI Reference Range: 20.0-300.0pH, Urine 6.1 UI Reference Range: 4.5-8.9Performed at: - [facility] [id number] [facility], [facility], [place] [id number] Director: Erik Wallis PhD, Phone: [phone] at: [facility] [id number] [place], [place] [id number] Director: Bharath Hawthorne PhD, Phone: [phone] Start: 10-18-[address] Marycarmen [...] Start: 09-19-2022 CT of head without contrast aMrycarmen SWAIN Start: 09-19-2022 MRI of cervical spine Tricia akins Marly SWAIN Start: 09-17-2022 MRI of brain without [...] ecg w/le ast 12 lds w/i&r Sagar Silvia Acuña [employer] NURSE Work Phone: Start: 08-18-2018 History of percutane ous transluminal coronary angioplasty History of percutaneous transluminal coronary angioplasty Dr. 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 Alexandr Mcclain Start: 08-13-2017 History of placement of stent for coronary artery disease History of coronary artery stent placement Dr. 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 Procedure aborted. 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2217IDK-BECS-Tu and Stent-Mid RCA x 2 Multi Link Mini Vision Rx Stent 4.0 x 28 mm 01/21/[address] JEFFREY SPIVEY MD Prostatectomy planned DR ROCIO SPIVEY MD Tonsillectomy DR JEFFREY SPIVEY MD Tx devices design & construction intermediate DR JEFFREY SPIVEY MD Plan of Treatment Date Care Activity Detail Author Start: 01-01-2025 [facility] Start: 01-01-2025 [facility] Start: 12-26-2024 Patient discharge [facility] Start: 12-25-2024 End: 12-26-2024 [facility] Start: 12-25-2024 Continuous positive airway pressure ventilation treatment [facility] Start: 12-24-2024 End: 12-25-2024 [facility] Start: 12-24-2024 Verification routine [facility] Start: 12-24-2024 Application of intermittent pneumatic compression device [facility] Start: 12-24-2024 Following clinical pathway protocol [facility] Start: 12-24-2024 Assessment of risk of venous thromboembolism [facility] Start: 12-24-2024 Care regimes management [facility] Start: 12-24-2024 Fall prevention [facility] Start: 12-24-[address] [facility] Start: 12-24-2024 Insertion of catheter into peripheral vein [facility] Start: 12-24-2024 Introduction of urinary catheter [facility] Start: 12-24-2024 Measuring intake and output [facility] Start: 12-24-2024 Notification of physician [facility] Start: 12-24-2024 Oxygen therapy [facility] Start: 12-24-2024 Providing care according to standard [facility] Start: 12-24-2024 Provision of activity privileges [facility] Start: 12-24-2024 Referral to gastroenterology service [facility] Start: 12-24-2024 Referral to occupational therapist [facility] Start: 12-24-2024 Referral to service [facility] Start: 12-24-2024 Admission procedure [facility] Start: 12-24-2024 [facility] Start: 12-20-2024 End: 12-20-2024 [facility] Start: 12-20-2024 [facility] Start: 12-17-2024 Patient discharge [facility] Start: 12-16-2024 [facility] Start: 12-15-2024 Dual pressure spontaneous ventilation support [facility] Start: 12-15-2024 Assessment of risk of venous thromboembolism [facility] Start: 12-15-2024 Care regimes management [facility] Start: 12-15-2024 Continuous pulse oximetry [facility] Start: 12-15-2024 Incentive spirometry [facility] Start: 12-15-2024 Insertion of catheter into peripheral vein [facility] Start: 12-15-2024 Measuring intake and output [facility] Start: 12-15-2024 Notification of physician [facility] Start: 12-15-2024 Providing care according to standard [facility] Start: 12-15-2024 Provision of activity privileges [facility] Start: 12-15-2024 Referral to supervisor process testing [facility] Start: 12-15-2024 Referral to occupational therapist [facility] Start: 12-15-2024 Referral to service [facility] Start: 12-15-2024 Tobacco use cessation education [facility] Start: 12-15-2024 End: 12-15-2024 [facility] Start: 12-15-2024 Following clinical pathway protocol [facility] Start: 12-15-2024 Admission procedure [facility] Start: 12-15-2024 [facility] Start: 12-15-2024 Patient referral to dietitian [facility] Start: 12-08-2024 Patient discharge [facility] Start: 12-07-2024 Following clinical pathway protocol [facility] Start: 12-07-2024 Assessment of risk of venous thromboembolism [facility] Start: 12-07-2024 Care regimes management [facility] Start: 12-07-[address] [facility] Start: 12-07-2024 Insertion of catheter into peripheral vein [facility] Start: 12-07-2024 Measuring intake and output [facility] Start: 12-07-2024 Notification of physician [facility] Start: 12-07-2024 Providing care according to standard [facility] Start: 12-07-2024 Provision of activity privileges [facility] Start: 12-07-2024 Referral to occupational therapist [facility] Start: 12-07-2024 Referral to service [facility] Start: 12-07-2024 End: 12-07-2024 [facility] Start: 12-07-2024 Pulmonary perfusion study [facility] Start: 12-07-2024 Verification routine [facility] Start: 12-07-2024 Admission procedure [facility] Start: 12-07-2024 Hospital admission, emergency, from emergency room, medical nature [facility] Start: 12-07-2024 [facility] Start: 12-07-2024 [facility] Start: 12-07-2024 Dual pressure spontaneous ventilation support [facility] Start: 12-06-2024 Patient discharge [facility] Start: 12-05-2024 Referral to occupational therapist [facility] Start: 12-05-2024 Referral to service [facility] Start: 12-03-2024 Electrocardiographic procedure [facility] Start: 12-03-2024 Referral to supervisor process testing [facility] Start: 12-03-2024 Verification routine [facility] Start: 12-03-2024 Admission procedure [facility] Start: 12-02-2024 End: 12-02-2024 [facility] Start: 12-02-2024 Following clinical pathway protocol [facility] Start: 12-02-2024 Notification of physician [facility] Start: 12-02-2024 Patient education [facility] Start: 12-02-2024 Provision of activity privileges [facility] Start: 12-02-2024 Pulse taking [facility] Start: 12-02-2024 Taking patient vital signs [facility] Start: 12-02-2024 Wound care [facility] Start: 12-02-2024 Oxygen therapy [facility] Start: 12-02-2024 Dual pressure spontaneous ventilation support [facility] Start: 12-02-2024 End: 12-02-2024 [...] 12-02-2024 MRA Head vessels WO contrast [facility] Start: 12-02-2024 MRA Neck vessels WO contrast [facility] Start: 12-01-2024 Vital signs measurements [facility] Start: 12-01-2024 Aspiration precautions [facility] Start: 12-01-2024 Cardiac monitoring [facility] Start: 12-01-2024 Catheterization of vein [facility] Start: 12-01-2024 Consultation [facility] Start: 12-01-2024 Continuous pulse oximetry [facility] Start: 12-01-2024 Elevation of head of bed [facility] Start: 12-01-2024 Exercises [facility] Start: 12-01-2024 Notification of physician [facility] Start: 12-01-2024 Oxygen therapy [facility] Start: 12-01-2024 Patient referral to dietitian [facility] Start: 12-01-2024 Referral to occupational therapist [facility] Start: 12-01-2024 Referral to service [facility] Start: 12-01-2024 Speech therapy assessment [facility] Start: 12-01-2024 [facility]med[facility] with [facility] Start: 11-30-2024 Measuring intake and output [facility] Start: 11-30-2024 Providing care according to standard [facility] Start: 11-30-2024 Referral to service [facility] Start: 11-30-2024 Care regimes management [facility] Start: 11-30-2024 Complete blood count [facility] Start: 11-30-2024 Elevation of head of bed [facility] Start: 11-30-2024 Admission procedure [facility] Start: 11-30-2024 Cardiac monitoring [facility] Start: 11-30-2024 Cardiac rehabilitation - phase 1 [facility] Start: 11-30-2024 Cardiac rehabilitation - phase 2 [facility] Start: 11-30-2024 Dietary regime [facility] Start: 11-30-2024 Log roll [facility] Start: 11-30-2024 End: 11-30-2024 Notification of physician [facility] Start: 11-30-2024 Oxygen therapy [facility] [...] Start: 11-27-2024 Elevation of head of bed [facility] Start: 11-27-2024 Dietary regime [facility] Start: 11-27-2024 Notification of physician [facility] Start: 11-27-2024 Oxygen therapy [facility] Start: 11-27-2024 Pulse taking [facility] Start: 11-27-2024 Continuous positive airway pressure ventilation treatment [facility] Start: 11-27-[address] [facility] Start: 11-26-2024 [facility] Start: 11-26-2024 [facility] Start: 11-22-2024 Evaluation of diagnostic study results [facility] Start: 10-25-2024 Evaluation of diagnostic study results [facility] Start: 07-25-2024 Walking distance 6 minutes [facility] Start: 07-17-2024 Measurement of respiratory function [facility] Start: 12-21-2022 Patient discharge [facility] Start: 10-05-2022 Measurement of respiratory function [facility] Start: 09-21-2022 Patient discharge [facility] Start: 09-20-2022 Telepractice consultation [facility] Start: 09-18-2022 Following clinical pathway protocol [facility] Start: 09-17-2022 Aspiration precautions [facility] Start: 09-17-2022 Assessment of risk of venous thromboembolism [facility] Start: 09-17-2022 Cardiac monitoring [facility] Start: 09-17-2022 Care regimes management [facility] Start: 09-17-2022 Catheterization of vein [facility] Start: 09-17-2022 Continuous positive airway pressure ventilation treatment [facility] Start: 09-17-2022 Continuous pulse oximetry [facility] Start: 09-17-2022 Elevation of head of bed [facility] Start: 09-17-2022 Exercises [facility] Start: 09-17-2022 Fall prevention [facility] Start: 09-17-2022 Implementation of planned interventions [facility] Start: 09-17-[address] [facility] Start: 09-17-2022 Insertion of catheter into peripheral vein [facility] Start: 09-17-2022 Introduction of urinary catheter [facility] Start: 09-17-2022 Measuring intake and output [facility] Start: 09-17-2022 Notification of physician [facility] Start: 09-17-2022 Oxygen therapy [facility] Start: 09-17-2022 End: 09-18-2022 Patient referral to dietitian [facility] Start: 09-17-2022 Providing care according to standard [facility] Start: 09-17-2022 Provision of activity privileges [facility] Start: 09-17-2022 Referral to occupational therapist [facility] Start: 09-17-2022 Referral to service [facility] Start: 09-17-2022 Speech therapy assessment [facility] Start: 09-17-2022 Tobacco use cessation education [facility] Start: 08-31-2022 Notification of physician [facility] Start: 08-31-2022 Oxygen therapy [facility] Start: 08-31-2022 Patient discharge [facility] Start: 08-31-2022 Taking patient vital signs [facility] Start: 08-31-2022 Vascular disease risk assessment [facility] Start: 08-31-2022 Vital signs measurements [facility] Start: 08-31-2022 End: 08-31-2022 [facility] Start: 08-31-2022 Admission procedure [facility] Start: 11-16-2021 [facility] Work Phone: Start: 01-10-2021 End: 01-10-2021 Admission to same day surgery center 01/10/2021 Surgery Cardiology Eladio Ingram MD [address] [place] [address] Left Heart Cath Possible PTCA/Stent [facility] Medical Anthropology Director Comment on above: Left Heart Cath Possible PTCA/Stent Start: 01-10-2021 Subsequent hospital visit by physician 01/10/2021 Hospital Encounter Eladio Ingram MD [address] [place] [address] [facility] Procedural Care Unit Start: 01-01-2021 Influenza vaccination [facility] Start: 12-26-2020 End: 12-26-2020 Patient encounter procedure 12/26/2020 Office Visit Cardiology Marycarmen Rodriguez, DO [address] [place], [place] [address] Eladio Ingram MD [address] [facility] [address] [place] [address] [phone] [facility] Start: 10-15-2020 End: 10-15-2020 Patient encounter procedure 10/15/2020 Appointment Cardiology Eladio Ingram MD [address] [facility] [address] [place] [address] [phone] [facility] Start: 10-09-2020 End: 10-09-2020 Patient encounter procedure 10/09/2020 Office Visit Cardiology Sagar Acuña, QUALITY ASSURANCE NURSE [address] [place] [address] [phone] [facility] Start: 11-05-2017 Prostate specific antigen measurement PSA Level [facility] Start: 06-01-2017 HEMOGLOBIN A1C HEMOGLOBIN A1C [facility] Work Phone: Start: 06-01-2017 Hemoglobin A1c measurement A1C [facility] Start: 06-01-2017 Hemoglobin A1c/Hemoglobin.total mass fraction (Bld) HEMOGLOBIN A1C [facility] Work Phone: Start: 01-01-2017 SEQUENTIAL INFLUENZA VACCINE (#1) SEQUENTIAL INFLUENZA VACCINE (#1) [facility] Work Phone: Start: 12-17-2016 Ambulatory 12/17/2016 Office Visit Cardiology Eladio Ingram MD [address] [facility] [address] [place] [address] [phone] [facility] Start: 2010 ABDOMINAL AORTIC ULTRASOUND ABDOMINAL AORTIC ULTRASOUND [facility] Work Phone: Start: 2010 Fall risk assessment Falls Risk Assessment [facility] Start: 2010 PNEUMOCOCCAL VACCINE AGE 65+ (1 of 2 - PCV13) PNEUMOCOCCAL VACCINE AGE 65+ (1 of 2 - PCV13) [facility] Work Phone: Start: 2005 Zoster vacc, sc ZOSTER VACCINE [facility] Work Phone: Start: 08-01-1995 Administration of herpes zoster vaccine Zoster Vaccines (1 of 2) [facility] Start: 08-01-1995 Screening for malignant neoplasm of colon [facility] Start: 08-01-1963 Hepatitis C screening Hepatitis C Screening [facility] Start: 1957 COVID-19 Vaccine (1) COVID-19 Vaccine (1) [facility] Start: 08-01-1955 3 comp foot exam completed FOOT EXAM [facility] Work Phone: Start: 08-01-1955 Albumin Test strip detection limit <= 20 mg/L mass conc (U) URINE MICROALBUMIN [facility] Work Phone: Start: 08-01-1955 Diabetic foot examination Foot Exam [facility] Start: 08-01-1955 Microalbumin measurement, urine, quantitative Urine Microalbumin [facility] Start: 08-01-1955 Ophthalmic examination and evaluation OPHTHALMOLOGY EXAM [facility] Start: 08-01-1955 FOOT EXAM FOOT EXAM [facility] Work Phone: Start: 08-01-1955 OPHTHALMOLOGY EXAM OPHTHALMOLOGY EXAM [facility] Work Phone: Start: 08-01-1955 URINE MICROALBUMIN URINE MICROALBUMIN [facility] Work Phone: Start: 08-01-1951 Pneumococcal Vaccine: Age 65+ (1 of 2 - PPSV23) Pneumococcal Vaccine: Age 65+ (1 of 2 - PPSV23) [facility] Start: 1948 History and physical examination, annual for health maintenance Wellness Visit [facility] Start: 1945 Colonoscopy COLONOSCOPY [facility] Work Phone: Start: 1945 Tetanus vaccination Tetanus: Every 10yrs [facility] Start: 1945 Colonoscopy COLONOSCOPY [facility] Work Phone: Start: 1945 End: 1945 HEPATITIS C SCREENING HEPATITIS C SCREENING [facility] Work Phone: Start: 1945 End: 1945 TETANUS EVERY 10 YR TETANUS EVERY 10 YR [facility] Work Phone: Alanine aminotransfe rase [...] Basic metabolic panel Lab Routine 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, unspecified whether [place] or transplanted heart (HCC) Essential hypertension 1 Occurrences starting 12/26/2020 until 12/26/2021 [facility] Comment on above: 1 Occurrences starting 12/26/2020 until 12/26/2021 Basic metabolic 2000 panel - Serum or Plasma Basic metabolic panel Lab Routine 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, unspecified whether [place] or transplanted heart (HCC) Essential hypertension 12/26/2020 11:28 AM EDT [facility] Basic metabolic 2007 panel with ionized calcium - Serum or Plasma [facility] Basic metabolic 2007 panel with ionized calcium - Serum or Plasma [facility] Basic metabolic 2007 panel with ionized calcium - Serum or Plasma [facility] End: 12-17-2017 Basic metabolic panel [AGGREGATE] Basic metabolic panel Routine MATTHEW (obstructive sleep apnea) Coronary artery disease involving [place] coronary artery of [place] heart without angina pectoris 1 Occurrences starting 12/17/2016 until 12/17/2017 [facility] Work Phone: Bilirubin, total measurement [facility] Bilirubin, total measurement [facility] Blood chemistry [facility] BUN/Creatinine ratio [facility] BUN/Creatinine ratio [facility] Calcium [Mass/volume ] in Serum or Plasma [facility] Calcium [Mass/volume ] in Serum or Plasma [facility] Carbon dioxide, tota l [Moles/volume] in Central venous blood [facility] Carbon dioxide, tota l [Moles/volume] in Central venous blood [facility] Catheterization of [facility] Catheterization of [facility] Catheterization of l [facility] CBC W Auto Different ial panel - Blood [facility] CBC W Auto Different ial panel - Blood [facility] End: 12-26-2021 Complete blood count with white cell differential, manual CBC and differential Lab Routine 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, unspecified whether [place] or transplanted heart (HCC) Essential hypertension 1 Occurrences starting 12/26/2020 until 12/26/2021 [facility] Work Phone: Comment on above: 1 Occurrences starting 12/26/2020 until 12/26/2021 Complete blood count with white cell differential, manual CBC and differential Lab Routine 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, unspecified whether [place] or transplanted heart (HCC) Essential hypertension 12/26/2020 11:28 AM EDT [facility] Creatinine [Mass/vol ume] in Serum or Plasma [facility] Creatinine [Mass/vol ume] in Serum or Plasma [facility] End: 01-10-2022 CT Angiogram Aorta Chest Abdomen Pelvis CT Angiogram Aorta Chest Abdomen Pelvis Imaging Routine 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) 1 Occurrences starting 01/10/2021 until 01/10/2022 [facility] Work Phone: Comment on above: 1 Occurrences starting 01/10/2021 until 01/10/2022 End: 12-04-2021 Echocardiography Echocardiogram complete Echocardiography Routine Shortness of breath 1 Occurrences starting 10/04/2020 until 12/04/2021 [facility] Comment on above: 1 Occurrences [...] LEFT HEART CATH POSSIBLE PTCA/STENT [facility] Leukocytes [#/volume ] in Blood [facility] Leukocytes [#/volume ] in Blood [facility] Leukocytes [#/volume ] in Blood [facility] End: 12-17-2017 Magnesium Magnesium Routine MATTHEW (obstructive sleep apnea) Coronary artery disease involving [place] coronary artery of [place] heart without angina pectoris 1 Occurrences starting 12/17/2016 until 12/17/2017 [facility] Work Phone: Mean corpuscular hem [...] radionuclide IV [facility] Patient Education [facility] Work Phone: Patient referral [facility] Work Phone: Platelets [#/volume] in Blood [facility] Platelets [#/volume] in Blood [facility] Platelets [#/volume] in Blood [facility] Potassium measurement [facility] Potassium measurement [facility] Red blood cell count [facility] Red blood cell count [facility] Red blood cell count [facility] Red cell distributio n width determination [facility] Red cell distributio n width determination [facility] Red cell distributio n width determination [facility] Serum chloride measurement [facility] Serum chloride measurement [facility] Sodium measurement [facility] Sodium measurement [facility] Total protein measurement [facility] Total protein measurement [facility] Troponin T.cardiac [Mass/volume] in Serum [...] nitrogen [Mass/ volume] in Serum or Plasma [facility]R Chest PA and Lateral [facility] Immunizations Immunization Date Immunization Notes Care Provider [...] Phone: [facility] 11-29-2016 HEMOGLOBIN A1C [facility] Work Phone: 08-16-2014 pneumococcal polysaccharide [...] Medical Center Payers Date Payer Category Payer Medicare [id number] 2025 Private Health Insurance [id number] 2024 Self-pay [id number] 2019 Unknown [id number] 2019 Unknown [id number] 2012 Unknown [id number] 2.1 6.840.1.300007.3.249.13 2010 Medicare [id number] 2.16 .840.1.011332.3.249.13 2010 Medicare [id number] 2010 Medicare [id number] 2010 Medicare [id number] 1945 Unknown [id number] 2.16. 840.1.415584.3.579.2.594 1945 Unknown [id number] 2.16. 840.1.412620.3.579.2.902 1945 Unknown [id number] 2.16. 840.1.974673.3.579.2.903 1945 Unknown [id number] 2.16. 840.1.031393.3.579.2.903 1945 Unknown [id number] 2.16. 840.1.948839.3.579.2.90 1945 Unknown [id number] 2.16. 840.1.597496.3.579.2.903 1945 Unknown [id number] 2.16. 840.1.796546.3.579.2. 1945 Unknown [id number] 2.16. 840.1.365756.3.579.2.903 1945 Unknown [id number] 2.. 840.1.176263.3.579.2. 1945 Unknown [id number] 2.16. 840.1.079862.3.579.2.903 1945 Unknown [id number] 2.16. 840.1.684118.3.579.2.627 Unknown [id number] 2.16.8 40.1.222382.3.579.2.462 Unknown [id number] 2.16.8 40.1.937353.3.579.2.462 Unknown [id number] 2.16.8 40.1.476924.3.579.2.462 Unknown [id number] 2.16.8 40.1.591414.3.579.2.462 Unknown [id number] 2.16.8 40.1.113259.3.579.2.462 Unknown [id number] 2.16.8 40.1.485961.3.579.2.462 Unknown [id number] 2.16.8 40.1.744409.3.579.2.462 Unknown [id number] 2.16.8 40.1.049263.3.579.2.462 Unknown [id number] 2.16.8 40.1.254316.3.579.2.462 Unknown [id number] 2.16.8 40.1.727170.3.579.2.462 Unknown [id number] 2.16.8 40.1.747661.3.579.2.462 Unknown [id number] 2.16.8 40.1.499020.3.579.2.462 Unknown [id number] 2.16.8 40.1.668891.3.579.2.462 Unknown [id number] 2.16.8 40.1.029953.3.579.2.462 Unknown [id number] 2.16.8 40.1.579049.3.579.2.462 Unknown [id number] 2.16.8 40.1.614480.3.579.2.462 Unknown [id number] 2.16.8 40.1.101410.3.579.2.462 Unknown [id number] 2.16.8 40.1.286680.3.579.2.462 Unknown [id number] 2.16.8 40.1.469932.3.579.2.462 Unknown [id number] 2.16.8 40.1.496417.3.579.2.462 Unknown [id number] 2.16.8 40.1.197396.3.579.2.462 Unknown [id number] 2.16.8 40.1.244049.3.579.2.462 Unknown [id number] 2.16.8 40.1.903136.3.579.2.462 Unknown [id number] 2.16.8 40.1.511565.3.579.2.462 Unknown [id number] 2.16.8 40.1.741396.3.579.2.462 Unknown [id number] 2.16.8 40.1.934476.3.579.2.462 Unknown [id number] 2.16.8 40.1.216936.3.579.2.462 Unknown [id number] 2.16.8 40.1.944293.3.579.2.462 Unknown [id number] 2.16.8 40.1.691058.3.579.2.462 Unknown [id number] 2.16.8 40.1.269054.3.579.2.462 Unknown [id number] 2.16.8 40.1.753074.3.579.2.462 Unknown [id number] 2.16.8 40.1.355165.3.579.2.462 Unknown [id number] 2.16.8 40.1.229263.3.579.2.462 Unknown [id number] 2.16.8 40.1.611188.3.579.2.462 Unknown [id number] 2.16.8 40.1.204392.3.579.2.462 Unknown [id number] 2.16.8 40.1.596020.3.579.2.462 Unknown [id number] 2.16.8 40.1.293230.3.579.2.462 Unknown [id number] 2.16.8 40.1.464731.3.579.2.462 Unknown [id number] 2.16.8 40.1.661455.3.579.2.462 Unknown [id number] 2.16.8 40.1.678963.3.579.2.462 Unknown [id number] 2.16.8 40.1.828557.3.579.2.462 Unknown [id number] 2.16.8 40.1.862107.3.579.2.462 Unknown [id number] 2.16.8 40.1.871598.3.579.2.462 Unknown [id number] 2.16.8 40.1.953068.3.579.2.462 Unknown [id number] 2.16.8 40.1.740951.3.579.2.462 Unknown [id number] 2.16.8 40.1.550659.3.579.2.462 Unknown [id number] 2.16.8 40.1.987742.3.579.2.462 Unknown [id number] 2.16.8 40.1.798020.3.579.2.462 Unknown [id number] 2.16.8 40.1.028270.3.579.2.462 Unknown [id number] 2.16.8 40.1.285105.3.579.2.462 Unknown [id number] 2.16.8 40.1.383120.3.579.2.462 Unknown [id number] 2.16.8 40.1.026219.3.579.2.462 Unknown [id number] 2.16.8 40.1.700819.3.579.2.462 Unknown [id number] 2.16.8 40.1.077483.3.579.2.462 Unknown [id number] 2.16.8 40.1.735559.3.579.2.462 Unknown [id number] 2.16.8 40.1.096771.3.579.2.462 Unknown [id number] 2.16.8 40.1.195614.3.579.2.462 Unknown [id number] 2.16.8 40.1.758523.3.579.2.462 Unknown [id number] 2.16.8 40.1.602965.3.579.2.462 Unknown [id number] 2.16.8 40.1.563493.3.579.2.462 Unknown [id number] 2.16.8 40.1.885582.3.579.2.462 Unknown [id number] 2.16.8 40.1.571618.3.579.2.462 Unknown [id number] 2.16.8 40.1.440256.3.579.2.462 Unknown [id number] 2.16.8 40.1.542348.3.579.2.462 Unknown [id number] 2.16.8 40.1.722047.3.579.2.462 Unknown [id number] 2.16.8 40.1.172190.3.579.2.462 Unknown [id number] 2.16.8 40.1.449651.3.579.2.462 Unknown [id number] 2.16.8 40.1.174690.3.579.2.462 Unknown [id number] 2.16.8 40.1.350135.3.579.2.462 Unknown [id number] 2.16.8 40.1.137177.3.579.2.462 Unknown [id number] 2.16.8 40.1.323385.3.579.2.462 Unknown [id number] 2.16.8 40.1.546960.3.579.2.462 Unknown [id number] 2.16.8 40.1.010851.3.579.2.462 Unknown [id number] 2.16.8 40.1.989873.3.579.2.462 Unknown [id number] 2.16.8 40.1.971758.3.579.2.462 Unknown [id number] 2.16.8 40.1.763877.3.579.2.462 Unknown [id number] 2.16.8 40.1.499978.3.579.2.462 Unknown [id number] 2.16.8 40.1.921859.3.579.2.462 Unknown [id number] 2.16.8 40.1.110964.3.579.2.462 Unknown [id number] 2.16.8 40.1.795718.3.579.2.462 Unknown [id number] 2.16.8 40.1.275465.3.579.2.462 Unknown [id number] 2.16.8 40.1.968152.3.579.2.462 Unknown [id number] 2.16.8 40.1.983302.3.579.2.462 Unknown [id number] 2.16.8 40.1.840100.3.579.2.462 Unknown [id number] 2.16.8 40.1.619324.3.579.2.462 Unknown [id number] 2.16.8 40.1.462258.3.579.2.462 Unknown [id number] 2.16.8 40.1.729440.3.579.2.462 Unknown [id number] 2.16.8 40.1.429922.3.579.2.462 Unknown [id number] 2.16.8 40.1.557922.3.579.2.462 Unknown [id number] 2.16.8 40.1.479459.3.579.2.462 Unknown [id number] 2.16.8 40.1.605544.3.579.2.462 Unknown [id number] 2.16.8 40.1.148690.3.579.2.462 Unknown [id number] 2.16.8 40.1.628159.3.579.2.462 Unknown [id number] 2.16.8 40.1.850214.3.579.2.462 Unknown [id number] 2.16.8 40.1.553418.3.579.2.462 Unknown [id number] 2.16.8 40.1.825488.3.579.2.462 Unknown [id number] 2.16.8 40.1.633236.3.579.2.462 Unknown [id number] 2.16.8 40.1.080600.3.579.2.462 Unknown [id number] 2.16.8 40.1.745096.3.579.2.462 Unknown [id number] 2.16.8 40.1.972368.3.579.2.462 Social History Date Type Detail Facility Start: 12-17-2016 End: 01-03-2025 Tobacco smoking status NHIS Former smoker [facility] Start: 12-17-2016 End: 10-09-2020 Cigarettes smoked current (pack per day) - Reported [facility] Work Phone: Start: 1945 Sex Assigned At Not on file [facility] Work Phone: Start: 12-17-2016 End: 10-09-2020 Tobacco use and exposure Never used [facility] Start: 12-17-2016 End: 01-10-2021 Alcohol intake Current non-drinker of alcohol (finding) [facility] Start: 03-10-2016 Tobacco Comment quit 25+ yrs ago [facility] Exposure to SARS-CoV -2 (event) Not sure [facility] Start: 08-01-2021 End: 12-21-2022 Tobacco smoking status NHIS Unknown if ever smoked [facility] Start: 01-12-2020 None [facility] Start: 01-12-2020 Spouse/ Signif icant Other [facility] Start: 11-18-2020 Non-smoker [facility] Start: 1945 Sex Assigned At Male [facility] Start: 07-13-2024 End: 01-03-2025 Sex Male (finding) [facility] Sexual Orientation Maryann Gao [employer] Medical Equipment Procedure Code Equipment Code Equipment Origin al Text Equipment Identifier Dates Colonoscopy FDA Start: 12-25-2024 Colonoscopy FDA Start: 12-25-2024 Stent 3.50 X 23 [facility] - [id number] FDA Start: 01-04-2015 ()[id number] [id number] FDA Start: 08-31-2022 ()[id number] FDA Start: 08-31-2022 ([id number] [id number] FDA Start: 11-27-2024 (01)[id number] [id number] FDA Start: 11-30-2024 (01)[id number] 0)[id number] FDA Start: 11-30-2024 Goals Date Patient Goal Desired Activity /State Functional Status Date Assessment Result Facility 12-26-2024 Functional status Ambulates [facility] Work Phone: 12-17-2024 Functional status Ambulates [facility] Work Phone: 12-08-2024 Functional status Bedrest [facility] Work Phone: 12-06-2024 Functional status Ambulates [facility] Work Phone: 12-05-2024 Functional status Ambulates [facility] Work Phone: 12-04-2024 Functional status Poor [facility] Work Phone: 12-02-2024 Functional status Bedrest [facility] Work Phone: 11-28-2024 Functional status Ambulates [facility] Work Phone: 11-27-2024 Functional status Dangle Feet [facility] Work Phone: 09-21-2022 Functional status Chair [facility] Work Phone: 09-20-2022 Functional status Assistive Ning lauro [facility] Work Phone: 09-01-2022 Functional status Activity Ability Indepe ndent [facility] Work Phone: 08-31-2022 Functional status Ambulates [facility] Work Phone: Mental Status Date Assessment Result Facility 01-01-2025 Cognitive function Voice/Name [facility] Work Phone: 12-26-2024 Cognitive function Voice/Name [facility] Work Phone: 12-17-2024 Cognitive function Voice/Name [facility] Work Phone: 12-08-2024 Cognitive function Voice/Name [facility] Work Phone: 12-07-2024 Cognitive function Voice/Name [facility] Work Phone: 12-06-2024 Cognitive function Voice/Name [facility] Work Phone: 12-05-2024 Cognitive function Voice/Name [facility] Work Phone: 12-02-2024 Cognitive function Voice/Name [facility] Work Phone: 12-02-2024 Cognitive function Voice/Name [facility] Work Phone: 11-28-2024 Cognitive function Voice/Name [facility] Work Phone: 11-27-2024 [facility] function [facility] Work Phone: 09-21-2022 Cognitive function Voice/Name [facility] Work Phone: 09-01-2022 Cognitive function Appropriate;Cooperativ e [facility] Work Phone: 11-16-2021 Cognitive function Voice/Name [facility] Work Phone: 06-10-2021 Cognitive function Level Of Cons ciousness Awake;Alert;Appropriate [facility] Work Phone: Clinical Notes 06-25-2020 to 01-10-2025 [...] Document Reviewed: 04/20/2014 ExitCare Patient Information 2015 Spare to Share. This information is not intended to replace advice given to you by your health care provider. Make sure you discuss any questions you have with your health care provider. Follow Up Care 01/03/2025 12:50:19 With:JEFFREY SPIVEY MD Address: [address] [facility] and [facility] [place] [address]- [phone] When:Within 2 Week(s) With:Cardiac Rehab- [facility] Address: [address] [place] [address]- When: Unknown Comments:Cardiac rehabilitation is a vital part of your recovery and long-term heart health following your hospital stay. It is a medically supervised exercise and education program designed to improve your physical fitness, manage heart-related risk factors, and support emotional well-being. A cardiac rehab team leader surgery will contact you soon to schedule your follow-up appointment. If you have any questions please call [phone]. [facility] 01-10-2025 Note Discharge Instructions Thank you for allowing [facility] to assist you with your healthcare needs. The following is important discharge information regarding your hospital visit. What to do next Follow Up Appointments Follow Up with JEFFREY SPIVEY MD When:In 2 weeks Where:[address] [facility] Heart and Vascular [facility] [place] [address] [phone] Follow Up with Cardiac Rehab- [facility] Where:[address] [place] [address]- Additional Information: Cardiac rehabilitation is a vital part of your recovery and long-term heart health following your hospital stay. It is a medically supervised exercise and education program designed to improve your physical fitness, manage heart-related risk factors, and support emotional well-being. A cardiac rehab team leader surgery will contact you soon to schedule your follow-up appointment. If you have any questions please call [phone]. The Following Activity and Diet Have Been [...] may report side effects to FDA at 2-920-VUO-7954. What other drugs will affect clopidogrel? Sometimes it is not safe to use certain medications at the same time. Some drugs can affect your blood levels of other drugs you take, which may increase side effects or make the medications less effective. Tell your doctor about all your other medicines, especially: a stomach acid kitchenwhere maker such as omeprazole, Nexium, or Prilosec; an antidepressant such as citalopram, fluoxetine, sertraline, Cymbalta, Effexor, Lexapro, Pristiq, or Prozac; rifampin; a blood thinner--warfarin, Coumadin, Jantoven; or NSAIDs (nonsteroidal anti-inflammatory drugs)--aspirin, ibuprofen (Advil, Motrin), naproxen (Aleve), celecoxib, diclofenac, indomethacin, meloxicam, and others. This list is not complete. Other drugs may affect clopidogrel, including prescription and ezdm-txz-alvqmas medicines, vitamins, and herbal products. Not all [...] to ensure that the information provided by [employer]u. ('Multum') is accurate, up-to-date, and complete, but no guarantee is made to that effect. Drug information contained herein may be time sensitive. [employer] information has been compiled for use by healthcare practitioners and consumers in the [place] and therefore [employer] does not warrant that uses outside of the [place] are appropriate, unless specifically indicated otherwise. [employer] drug information does not endorse drugs, diagnose patients or recommend therapy. [employer] drug information is an informational resource designed [...] effective or appropriate for any given patient. [employer] does not assume any responsibility for any aspect of healthcare administered with the aid of information [employer] provides. The information contained herein is not intended to cover all possible uses, directions, precautions, warnings, drug interactions, allergic reactions, or adverse effects. If you have questions about the drugs you are taking, check with your doctor, nurse or pharmacist. Copyright 4898-6099 [employer]u. Version: 18.. Revision Date: 2020. aspirin (oral) ( pir in) Aspi-Cor, Rebeca Plus, Ecotrin, Miniprin, Vazalore What is the most important information I should know about aspirin? Aspirin can cause Liane's syndrome, a serious and sometimes fatal condition in children. What is aspirin? Aspirin is a salicylate (ll-RSP-ns-ate) that is used to treat pain, and [...] may report side effects to FDA at 7-690-YEP-4809. What other drugs will affect aspirin? Ask [...] drugs may affect aspirin, including prescription and nedz-cox-slncmpt medicines, vitamins, and herbal products. Not all [...] to ensure that the information provided by [employer]u. ('Multum') is accurate, up-to-date, and complete, but no guarantee is made to that effect. Drug information contained herein may be time sensitive. [employer] information has been compiled for use by healthcare practitioners and consumers in the [place] and therefore [employer] does not warrant that uses outside of the [place] are appropriate, unless specifically indicated otherwise. [employer] All natural drug information does not endorse drugs, diagnose patients or recommend therapy. [employer]'s All natural drug information is an informational resource designed [...] effective or appropriate for any given patient. [employer] does not assume any responsibility for any aspect of healthcare administered with the aid of information [employer] provides. The information contained herein is not intended to cover all possible uses, directions, precautions, warnings, drug interactions, allergic reactions, or adverse effects. If you have questions about the drugs you are taking, check with your doctor, nurse or pharmacist. Copyright 3358-7817 [employer] [facility] [employer]. Version: 18.02. Revision Date: 04/19/2024. Education Materials [...] Document Reviewed: 04/20/2014 ExitCare Patient Information 2015 Spare to Share. This information is not intended to replace advice given to you by your health care provider. Make sure you discuss any questions you have with your health care provider. Additional Information VACCINATE! IT SAVES LIVES! Members of the community who have not yet received the COVID-19 vaccine and would like to receive it can visit one of [facility] vaccine clinics. There are many vaccine clinic locations within the [facility]. For locations and available times, please visit https://gettheshot.coronavirus. [place].gov/. It is important to note that some COVID mobile vaccine clinics are held outdoors and may be canceled in rainy or stormy conditions. To learn more about pediatric vaccinations (ages 5-11), we invite you to visit the [facility] webpage. https://www.[employer].org/ pages/3860-Svecw-Xkicgqutkun-Fr cedscjqv-Xzdez-Egaeutxrh.html To learn more about the COVID-19 vaccine, we invite you to visit the CDC website for a list of frequently asked questions.https://www.cdc.gov/c oronavirus/2019-ncov/vaccines/f aq.html [employer] Patient Portal Access Instructions: Stay connected with your healthcare team and access your personal medical information anytime with the [employer] Patient Portal. Please follow the directions below to create your [employer] account: 1.Access the email account you provided upon registration to the hospital/physician office.2.Look for an invitation email from [facility].3.Open the email and access the invitation link: Accept Invitation to [facility].4.Fill in the required kim to create your account. To access your account, visit [facility]. Click the blue button labeled "Access Patient Portal" and then log in with the username [...] you will allow to register on the [facility] for access to your information. You can also access the [facility] Patient Portal on the [facility] tuan. Simply click on "Patient Portal" and then log into your account. If you would like to receive a full copy of your medical records, please contact the [facility] Medical Records Department by calling [phone], Wednesday through Wednesday between 8 a.m. and [...] Call your local pharmacy or go to [email or web address]/[email or web address] to find one close to you.3.Make use of household items: Use cat litter or old coffee grounds to dispose medications if other options are not available. Mix your drugs with these household products, seal them in an airtight container and throw it into the garbage. Call [facility]: [phone] to be sure your drugs can be [...] aware that I should contact my doctor. Patient/Information Services Manager Signature: Date/Time: Relationship to Patient: Witness Name/Signature: Date/Time: [facility] 01-10-2025 Discharge summary Date of Service 01/10/2025 Discharge Diagnosis STEMI status post PCI to [facility] Hospital Course Patient is a 79-year-old male with history of CAD with PCI on 11/27/2024 with in-stent thrombosis requiring repeat PCI, ischemic cardiomyopathy, type 2 diabetes mellitus, hyperlipidemia and hypothyroidism presented from [place] as a transfer for concerns with complete [...] EGD and colonoscopy for similar reasons at [facility], requested records, GI was consulted who recommended no intervention at this time and cleared for discharge. He was noted to have AUDRA and received IV iron replacement. Discharged to SNF. Allergies doxycycline stomach upset Procedures [facility] Consults Consult to Physician - Ordered -- [...] JEFFREY SPIVEY MD When:In 2 weeks Where:[address] [facility] [place] [address] [phone] Follow Up with Cardiac Rehab- [facility] Where:[address] [place] [address]- Additional Information: Cardiac rehabilitation is a vital part of your recovery and long-term heart health following your hospital stay. It is a medically supervised exercise and education program designed to improve your physical fitness, manage heart-related risk factors, and support emotional well-being. A cardiac rehab team leader surgery will contact you soon to schedule your follow-up appointment. If you have any questions please call [phone]. Follow Up Appointments No qualifying data available. [...] ARMANDO BAÑUELOS MD on 01/10/2025 01:05 PM [facility] 01-10-2025 Discharge summary Date of Service 01/10/2025 Discharge Diagnosis STEMI status post PCI to [facility] Hospital Course Patient is a 79-year-old male with history of CAD with PCI on 11/27/2024 with in-stent thrombosis requiring repeat PCI, ischemic cardiomyopathy, type 2 diabetes mellitus, hyperlipidemia and hypothyroidism presented from [place] as a transfer for concerns with complete [...] EGD and colonoscopy for similar reasons at [facility], requested records, GI was consulted who recommended no intervention at this time and cleared for discharge. He was noted to have AUDRA and received IV iron replacement. Discharged to SNF. Allergies doxycycline stomach upset Procedures [facility] Consults Consult to Physician - Ordered -- [...] 2 weeks Where:[address] [facility] [place] [address] [phone] Follow Up with Cardiac Rehab- [facility] Where:[address] [place] [address]- Additional Information: Cardiac rehabilitation is a vital part of your recovery and long-term heart health following your hospital stay. It is a medically supervised exercise and education program designed to improve your physical fitness, manage heart-related risk factors, and support emotional well-being. A cardiac rehab team leader surgery will contact you soon to schedule your follow-up appointment. If you have any questions please call [phone]. Follow Up Appointments No qualifying data available. 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 up for [...] Painless low-volume rectal bleeding was evaluated at [facility] with a colonoscopy on December 25 [...] COREEN NEWBERRY MD on 01/10/2025 10:03 AM [facility] 01-09-2025 Cardiology Progre ss note Subjective [...] consulted GI, requested EGD colonoscopy reports from [facility] prior - He is a former smoker wheezing on exam, could be having underlying undiagnosed COPD, started on BiPAP and DuoNebs - Iron panel consistent with iron deficiency anemia, started on IV iron replacement - D Dimer not elevated, venous duplex ultrasounds negative for DVT - Patient presented from SNF in [place], pending GI recommendations, he can be discharged to the same facility per case management Digitally Signed by ARMANDO BAÑUELOS MD on 01/09/2025 01:54 PM [facility] 01-09-2025 Cardiology Katlyne ss note Subjective Patient seen and examined [...] consulted GI, requested EGD colonoscopy reports from [facility] prior - He is a former smoker wheezing on exam, could be having underlying undiagnosed COPD, started on BiPAP and DuoNebs - Iron panel consistent with iron deficiency anemia, started on IV iron replacement - D Dimer not elevated, venous duplex ultrasounds negative for DVT - Patient presented from SNF in [place], pending GI recommendations, he can be discharged to the same facility per case management Digitally Signed by ARMANDO BAÑUELOS MD on 01/09/2025 01:54 PM [facility] 01-09-2025 Note Exam Date Time Procedure Performing Provider Status 01/09/25 12:16 PM Echocardiogram, Adult - CV LOS BRUNO MD; Auth (Verified) [id number] Cardiology Progress note Subjective Patient seen and examined bedside this morning. Denies any new concerns. Stated he feels much better in regards to his breathing. Reviewed telemetry, continues to have prolonged NC with Mobitz type Iblock intermittent A. tach [...] hematochezia overnight - Telemetry reviewed showing prolonged NC with Mobitz type I and with intermittent A. tach episodes, spoke to EP fellow advised to start on low-dose beta-jeffrey, and started on medical succinate 12.5 mg daily, will uptitrate as he tolerates. - He has reduced EF, on GDMT with Toprol, losartan, Jardiance and spironolactone - Repeat limited echo order to evaluate for EF - Awaiting records from [facility] for EGD and colonoscopy - He is a former smoker wheezing on exam, could be having underlying undiagnosed COPD, started on BiPAP and DuoNebs - Iron panel consistent with iron deficiency anemia, started on IV iron replacement - D Dimer not elevated, venous duplex ultrasounds negative for DVT Digitally Signed by ARMANDO BAÑUELOS MD on 01/08/2025 02:21 PM [facility] [id number] Cardiology Progress note Subjective Patient seen and examined bedside this morning. Denies any new concerns. Stated he feels much better in regards to his breathing. Reviewed telemetry, continues to have prolonged NC with Mobitz type Iblock intermittent A. tach [...] hematochezia overnight - Telemetry reviewed showing prolonged NC with Mobitz type I and with intermittent A. tach episodes, spoke to EP fellow advised to start on low-dose beta-jeffrey, and started on medical succinate 12.5 mg daily, will uptitrate as he tolerates. - He has reduced EF, on GDMT with Toprol, losartan, Jardiance and spironolactone - Repeat limited echo order to evaluate for EF - Awaiting records from [facility] for EGD and colonoscopy - He is a former smoker wheezing on exam, could be having underlying undiagnosed COPD, started on BiPAP and DuoNebs - Iron panel consistent with iron deficiency anemia, started on IV iron replacement - D Dimer not elevated, venous duplex ultrasounds negative for DVT Digitally Signed by ARMANDO BAÑUELOS MD on 01/08/2025 02:21 PM [facility] [id number] Cardiology Progress note Subjective Patient seen and examined bedside this morning. Denies any new concerns. To be reviewed showing prolonged NC interval with Mobitz type I block. No [...] has been stable - Awaiting records from [facility] for EGD and colonoscopy - He [...] ARMANDO BAÑUELOS MD on 01/07/2025 12:28 PM [id number] Note* Exam Date Time Procedure Performing Provider Status 01/07/25 4:15 PM VL Venous US/Doppler Both Legs(for DVT) MICHAEL SIMENTAL MD; Auth (Verified) [facility] [id number] Cardiology Progress note Subjective Patient seen and examined bedside this morning. Denies any new concerns. To be reviewed showing prolonged NC interval with Mobitz type I block. No [...] has been stable - Awaiting records from [facility] for EGD and colonoscopy - He [...] ARMANDO BAÑUELOS MD on 01/07/2025 12:28 PM [facility] HospitalTacoeupa11-09-5741 Respiratory therapy Hospital Progress note Respiratory Therapy [...] by Melissa Olmstead on 01/06/2025 07:55 PM [facility] HospitalNgwarygl01-39-7624 Note* Exam Date Time Procedure Performing Provider Status 01/06/25 11:41 AM Electrocardiogram - EKG - CV MIN MADRID MD; Auth (Verified) ECG Final Report SINUS RHYTHM SECOND DEG AVB, MOBITZ I (ANAYANCMARLEY) LOW VOLTAGE, EXTREMITY LEADS REPOL ABNRM SUGGESTS ISCHEMIA, DIFFUSE LEADS ST ELEVATION, CONSIDER INFERIOR INJURY Probable posterior wall involvement PROLONGED QT INTERVAL Electronic Signature: MIN MADRID MD 01/07/2025 17:41:04 [facility] HospitalIxmbjjef29-33-1499 Note* Exam Date Time Procedure Performing Provider Status 01/06/25 11:20 AM XR Chest 1 View IZZY, JIMMY MD; Aut h (Verified) [id number] ORIGINAL EXAMINATION: ONE XRAY VIEW OF THE [...] Sign Date: 01/06/2025 11:26:21 AM Ordering Provider: [facility]09-06-2025 History and physical note Date of Service 01/03/2025 Chief Complaint Chest pain History of Present Illness 79-year-old male past medical history of CAD with multiple PCI, hypertension, hyperlipidemia, diabetes, hypothyroidism, heart failure who was transferred from [facility] for complete heart block requiring EP [...] seen on Holter monitor and presented to [facility] subsequently. Patient denies any dyspnea on exertion, orthopnea, PND, lower extremity edema, or palpitations. Patient is in sinus rhythm with occasional ectopic atrial arrhythmia. On admission troponin 7K EKG showing mild ST elevation in lead II, [address] depression in leads V1 to V4 may be chronic from prior AR. Review of Systems Same as HPI Physical [...] hypothyroidism, heart failure who was transferred from [facility] for complete heart block requiring EP [...] ISREAL JACKSON MD on 01/04/2025 09:30 AM [facility] HospitalLdzduofm66-53-0960 Note* Exam Date Time Procedure Performing Provider Status 01/06/25 10:05 AM Electrocardiogram - EKG - CV MIN MADRID MD; Auth (Verified) ECG Final Report AV Dissociation CONSIDER CHB NONSPECIFIC INTRAVENTRICULAR CONDUCTION DELAY INFERIOR INFARCT, ACUTE (LCX) Electronic Signature: MIN MADRID MD 01/07/2025 17:45:03 [facility] HospitalDobfbesp88-80-6811 Note* Exam Date Time Procedure Performing Provider Status 01/05/25 8:24 PM Echocardiogram, Adult - CV GUSTABO CORONADO MD; Auth (Verified) [facility] HospitalBwxakjwz15-71-7461 Note* Exam Date Time Procedure Performing Provider Status 01/05/25 2:44 PM Electrocardiogram - EKG - CV ABRAHAMP BRITTON PINZON MD; Auth (Verified) ECG Final Report SINUS RHYTHM PROLONGED NC INTERVAL NONSPECIFIC INTRAVENTRICULAR CONDUCTION DELAY LOW VOLTAGE, EXTREMITY LEADS REPOL ABNRM SUGGESTS ISCHEMIA, DIFFUSE LEADS ACUTE INFERIOR INFACRT Electronic Signature: BRITTON LEDEZMA MD 01/06/2025 18:58:38 [facility] HospitalQpfrwjrc09-42-2779 Note Date of Service 01/05/2025 Subjective Patient [...] KEREN WARNER MD on 01/05/2025 11:25 AM [facility] HospitalNvrtryyp65-77-4205 Note* Exam Date Time Procedure Performing Provider Status 01/05/25 2:02 PM XR Chest 1 View SALLY THRASHER MD; Aut h (Verified) [id number] ORIGINAL EXAMINATION: ONE XRAY VIEW OF THE [...] 01/05/2025 2:09:48 PM Ordering Provider: COREY PETERSON [facility] HospitalYoixopow53-44-7076 Note Date of Service 01/05/2025 Subjective Patient [...] KEREN WARNER MD on 01/05/2025 11:25 AM [facility] HospitalEnqhfyrk36-31-9721 Note* Exam Date Time Procedure Performing Provider Status 01/05/25 10:34 AM Electrocardiogram - EKG - CV BRITTON MONAE MD; Auth (Verified) ECG Final Report SINUS RHYTHM PROLONGED NC INTERVAL NONSPECIFIC INTRAVENTRICULAR CONDUCTION DELAY INFERIOR INFARCT, ACUTE (RCA) PROBABLE RV INVOLVEMENT, SUGGEST RECORDING RIGHT PRECORDIAL LEADS Electronic Signature: BRITTON LEDEZMA MD 01/06/2025 18:58:15 [facility] HospitalEyyjktxt91-29-6298 Note* Exam Date Time Procedure Performing Provider Status 01/05/25 5:43 AM Electrocardiogram - EKG - CV TABITHA SANDOVAL MD; Auth (Verified) ECG Final Report SINUS RHYTHM PROLONGED NC INTERVAL NONSPECIFIC INTRAVENTRICULAR CONDUCTION DELAY REPOL ABNRM SUGGESTS ISCHEMIA, ANTEROLATERAL ST ELEVATION, CONSIDER INFERIOR INJURY Electronic Signature: PENELOPE SANDOVAL MD 01/05/2025 15:34:11 [facility] HospitalRblvsnum98-76-0313 Cardiology Consult note Date of Service 01/04/2025 Reason for Consultation Complete heart block Referring Physician General Cardiology History of Present Illness 79-year-old male with past medical history of CAD with multiple PCI, hypertension, hyperlipidemia, diabetes, hypothyroidism, heart failure who was transferred from [facility] for complete heartblock requiring EP evaluation. [...] KEREN WARNER MD on 01/04/2025 11:15 AM [facility] HospitalJttpldsb22-37-2156 Note* Exam Date Time Procedure Performing Provider Status 01/04/25 1:51 PM Electrocardiogram - EKG - CV TABITHA SANDOVAL MD; Auth (Verified) ECG Final Report SINUS BRADYCARDIA PROLONGED NC INTERVAL LOW VOLTAGE, EXTREMITY LEADS PROBABLE POSTERIOR INFARCT, RECENT ST ELEVATION, CONSIDER INFERIOR INJURY LATERAL LEADS ARE ALSO INVOLVED Electronic Signature: PENELOPE SANDOVAL MD 01/05/2025 15:34:42 [facility] HospitalQhyywbag18-63-6799 Pastoral care Progress note Pastoral Care Note [...] much recently), desire to get home to [place]. Pastoral Care Visit Length : 10 minute(s) Seymour Garcia - 01/04/2025 13:15 EDT Digitally Signed by Seymour Garcia on 01/04/2025 01:15 PM [facility] HospitalLbokoqrn08-84-1565 Note* Exam Date Time Procedure Performing Provider Status 01/04/25 12:27 PM Cardiac Catheterization -CV JAN MAYA MD; Auth (Verified) [facility] HospitalNibqvgrn08-69-3061 Cardiology Consult note Date of Service 01/04/2025 Reason for Consultation Complete heart block Referring Physician General Cardiology History of Present Illness 79-year-old male with past medical history of CAD with multiple PCI, hypertension, hyperlipidemia, diabetes, hypothyroidism, heart failure who was transferred from [facility] for complete heartblock requiring EP evaluation. [...] KEREN WARNER MD on 01/04/2025 11:15 AM [facility] HospitalFtbqtigw58-87-5481 Note* Exam Date Time Procedure Performing Provider Status 01/03/25 10:07 PM XR Chest 1 View STEPHY LACEY MD; Aut h (Verified) [id number] ORIGINAL EXAMINATION: ONE XRAY VIEW OF THE [...] 01/04/2025 5:39:33 AM Ordering Provider: EVA JERNIGAN [facility] HospitalUhinkjwr63-14-1747 History and physical note Date of Service 01/03/2025 Chief Complaint Chest pain History of Present Illness 79-year-old male past medical history of CAD with multiple PCI, hypertension, hyperlipidemia, diabetes, hypothyroidism, heart failure who was transferred from [facility] for complete heart block requiring EP [...] seen on Holter monitor and presented to [facility] subsequently. Patient denies any dyspnea on exertion, orthopnea, PND, lower extremity edema, or palpitations. Patient is in sinus rhythm with occasional ectopic atrial arrhythmia. On admission troponin 7K EKG showing mild ST elevation in lead II, [address] depression in leads V1 to V4 may be chronic from prior AR. Review of Systems Same as HPI Physical [...] hypothyroidism, heart failure who was transferred from [facility] for complete heart block requiring EP [...] ISREAL JACKSON MD on 01/04/2025 09:30 AM [facility] HospitalRlishosi43-06-3048 Evaluation + Plan noteExtracted from: Title:History and Physical Author:ISREAL JACKSON MD Date:01/03/25 79-year-old male past medica l history of CAD with multiple PCI, hypertension, hyperlipidemia, diabetes, hypothyroidism, heart failure who was transferred from [facility] for complete heart block requiring EP [...] otherwise stated. CATH EP EVAL TTE A3 [facility] 09-01-2025 Radiology Diagnostic study [facility]08-26-2025 [facility]08-17-2025 Note [facility]08-17-2025 Hospital Discharge instructionsAdditional Instructions Date of Discharge: 12/17/24[facility] Work Phone: 1(333) 971-855808-16-2025 Progress note Author Marycarmen Marlow [facility] Note Date/Time December 17, 2024 1: 40pm [facility] Medical Records Department [address] [place] [address] Progress Note - Hospitalist 12/16/24 1843 MR#: [id number] Acct: [id number] Name: GERRY RICO Rep #:[id number] : 1945 79 From: Marycarmen Marlow DO PCP: Dr. Marycarmen Rodriguez, DO Status:ADM IN Location: [place] [address] Reason for Visit Chief Complaint: Chest pain Subjective Subjective Patient was seen and examined today, he had nausea and vomiting today and I elected to have him remain in the hospital for now and reevaluate him tomorrow for possible discharge to his detention. 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 Will [...] 75.7 H, Lymph % (Auto) 10.7 L, Dawes % (Auto) 12.1 H, Eos % (Auto) [...] multiple medical problems-patient will return to his [facility] facility when medically stable Total clinical time spent by myself addressing the patient's medical issues, reviewing all of his data, and collaborating patient's care team: 35 minutes Charges/Coding Visit Charges Inpatient E&M: 74010 Subs Hosp L2 12/17/24 1340 <Electronically signed by Marycarmen Marlow DO> Cosigner Signature (if applicable): CC: ~ Signed [facility] Work Phone: 1(787) 154-563708-16-2025 Progress note Author luis Rodriguez [facility] Note Date/Time December 16, 2024 12 :02pm [facility] Medical Records Department [address] [place] [address] Progress Note 12/16/24 1154 MR#: [id number] Acct: [id number] Name: GERRY RICO Rep #:[id number] : 1945 79 From: Lance Rodriguez MD PCP: Dr. Marycarmen Rodriguez, Status:ADM IN Location: [place] [address] Progress Note He states that his breathing [...] that may raise the possibility of post AR pericarditis and may explain some of his [...] ~ Signed [facility] Work Phone: 1(936) 807-301508-15-2025 History and physical note Author Ramonita Herron [facility] Note Date/Time December 15, 2024 3: 23pm [facility] Medical Records Department [address] [place] [address] H&P Exam - Hospitalist 12/15/24 1435 MR#: [id number] Acct: [id number] Name: GERRY RICO Rep #:[id number] : 1945 79 From: Ramonita Herron MD PCP: Dr. Marycarmen Rodriguez, DO Status:ADM IN Location: [facility] PWN422- 1 HPI - General General Date of Admission: 12/15/24 Date of Service: 12/15/24 Chief Complaint: Chest pain HPI Narrative GERRY RICO, is a 79-year-old male history of CKD, heart failure, coronary artery disease, COPD, recent STEMI after an in-stent thrombosis who presented [facility] ED 12/15/2024 for active chest [...] legs are actually less swollen than usual. [facility] Medical History Recent ST elevation myocardial infarction (STEMI) Chest pain History of acute inferior wall AR Acute ST elevation myocardial infarction (STEMI) of [...] attack) Obstructive sleep apnea Atherosclerotic heart disease [place] coronary artery w/angina pectoris Type 2 diabetes [...] History household members: spouse and none housing: detention Smoking Status: Former smoker quit date: 05/03/98 [...] 79.3 H, Lymph % (Auto) 9.7 L, Dawes % (Auto) 9.9, Eos % (Auto) 0.1, Baso % (Auto) 0.2, Absolute Neuts (auto) 11.7 H, Absolute Lymphs (auto) 1.43, Nucleated RBC % 0, PT 16.8 H, INR 1.3, ZZHL321.8 H*, Sodium 129 L, Potassium 4.5, Chloride [...] acute abnormality is seen. Reading Location: [facility]-1 Assessment & Plan Assessment/Plan (1) Chest pain: PLAN: Plan #Recurrent chest pain and elevated trop - Patient with history of coronary artery disease with recent stent and subsequent in-stent thrombosis for which she was taken back to the Medical Anthropology Director - He was subsequently discharged but readmitted again as a STEMI alert however heart cath at that time showed no acute process -Trop initially 1137, though this is down from 12/07 when his troponin was 7100, will trend - Cardiology on consult - Card Fixer examined patient's EKG, looks similar to previous send not taken emergently to Medical Anthropology Director - There is concern that he could have Ric syndrome as he has a small pericardial effusion there is theoretically the risk of post AR pericarditis, cardiology to initiate colchicine -NSAIDs to [...] 78 Minutes Charges/Coding Visit Charges Inpatient E&M: 02766 Init Hosp L3 12/15/24 1523 <Electronically signed by Ramonita Herron MD> Cosigner Signature (if applicable): CC: Dr. Marycarmen Rodriguez DO; Dr. Ramonita Herron MD~ Signed [facility] Work Phone: 1([phone]) 676-947308-15-2025 Consult note Author Sunil Faye [facility] Note Date/Time December 15, 2024 2: 19pm [facility] Medical Records Department [address] [place] [address] Consultation - Cardiology 12/15/24 1337 MR#: [id number] Acct: [id number] Name: GERRY RICO Rep #:[id number] : [...] that may raise the possibility of post AR pericarditis and may explain some of his [...] diabetes mellitus without complications: QUALIFIERS: Diabetes mellitus retirement insulin use: without 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 His EKG continues to demonstrate significant [...] diabetes mellitus, and remote history of TIA [facility] Medical History Recent ST elevation myocardial infarction (STEMI) Chest pain History of acute inferior wall AR Acute ST elevation myocardial infarction (STEMI) of [...] attack) Obstructive sleep apnea Atherosclerotic heart disease [place] coronary artery w/angina pectoris Type 2 diabetes [...] History household members: spouse and none housing: detention Smoking Status: Former smoker quit date: 05/03/98 [...] 79.3 H, Lymph % (Auto) 9.7 L, Dawes % (Auto) 9.9, Eos % (Auto) 0.1, [...] 79.3 H, Lymph % (Auto) 9.7 L, Dawes % (Auto) 9.9, Eos % (Auto) 0.1, [...] No acute abnormality is seen. Reading Location: [facility] Risk Score for UA/STEMI Assesmment (YES = 1) Risk Stratification Applicable: No 12/15/24 1419 <Electronically signed by Sunil Faye MD> Cosigner Signature (if applicable): CC: Dr. Marycarmen Rodriguez DO~ Signed [facility] Work Phone: 1(615) 580-874908-15-2025 Discharge summary Author Payalveronica Weldon [facility] Note Date/Time December 15, 2024 1: 39pm [facility] Medical Records Department [address] [place] [address] Emergency Department Summary 12/15/24 MR#: [id number] Acct: [id number] Name: GERRY RICO Rep #:[id number] : [...] moderately. Denies any leg edema, fevers, cough. [facility] Recent ST elevation myocardial infarction (STEMI) Chest pain History of acute inferior wall AR Acute ST elevation myocardial infarction (STEMI) of [...] attack) Obstructive sleep apnea Atherosclerotic heart disease [place] coronary artery w/angina pectoris Type 2 diabetes [...] History household members: spouse and none housing: detention Smoking Status: Former smoker quit date: 05/03/98 [...] room air. EKG showing ventricular rate 98, NC 186, QTc 357. Left axis deviation. Compared [...] 79.3 H Lymph % (Auto) 9.7 L Dawes % (Auto) 9.9 Eos % (Auto) 0.1 [...] No acute abnormality is seen. Reading Location: [facility] Chest x-ray independently interpreted myself showing cardiomegaly. Largely unchanged from previous compared on 12/07/2024 EKG Initial EKG: Attestation: I personally reviewed and interpreted this EKG as follows: Interpretation: Sinus Rhythm Comments: EKG independently interpreted by myself showing evidence of normal sinus rhythm. Ventricular rate 98, NC 186, QTc 357. Left axis deviation. Compared to previous EKG on 12/07/2024 ST elevation in lead III largely unchanged. Concerned that there may be slightly more elevation in lead II and V6 compared to 12/07 concerning for new ischemia. STEMI alert activated. Prior EKG tracings: available for review (12/07/24) Management Discussion w/another healthcare provider: Hospitalist and Manager Surgical Discharge Plan Dx/Rx/DC Orders Clinical Impression: Chest pain Disposition Disposition: Acute Care Hospital [facility] What to do if you have Problems For any increased pain, shortness of breath, bleeding, nausea or vomiting, chestpain, or any unexpected problems, contact your Primary Care Provider. Call [facility] ([phone]) or report to the closest Emergency Room. Call 911 if necessary. 12/15/24 1339 <Electronically signed by Payal Weldon DO> Cosigner Signature (if applicable): CC: Dr. Marycarmen Rodriguez DO ~ Signed [facility] Work Phone: 1([phone]) 857-654308-15-20[address] [facility]08-08-2025 Discharge summary Author Alex Sanon [facility] Note Date/Time December 08, 2024 12: 26pm [facility] Medical Records Department [address] [address] Discharge Summary 12/08/24 1222 MR#: [id number] Acct: [id number] Name: GERRY RICO Rep #:[id number] : 1945 79 From: Alex Sanon MD PCP: Dr. Marycarmen Marly, DO Status:ADM EDMUND [facility] Prov[facility] Date of Admission: 12/07/24 Primary Care Physician: Dr. Mraycarmen Rodriguez DO Reason For Visit: SHORTNESS OF BREATH. 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 [...] his ECF 2. 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 Patient was recently discharged to a penitentiary facility plan is for patient to be [...] 74.1 H, Lymph % (Auto) 11.4 L, Dawes % (Auto) 12.1 H, Eos % (Auto) [...] probability scan for pulmonary embolism. Reading Location: [id number] D/C Instructions Discharge Activity: Return to Normal [...] Uncertain Cause Additional Instructions / Restrictions: The supervisor process testing wanted to make sure you are taking [...] in before D/C Order can be placed): [facility] Facility Charges/Coding Visit Charges Inpatient E&M: 95026 Disch Hosp >30min 12/08/24 1226 <Electronically signed by Alex Sanon MD> Cosigner Signature (if applicable): CC: Dr. Alex Sanon MD; Dr. Marycarmen Rodriguez DO~ Signed [facility] Work Phone: 1([phone]) 372-913208-08-2025 [facility]08-08-2025 Nuclear medicine Diagnostic study [facility]08-08-2025 Progress note Author Alex Sanon [facility] Note Date/Time December 08, 2024 9:2 1am [facility] Medical Records Department [address] [place] [address] Progress Note - Hospitalist 12/08/24 0734 MR#: [id number] Acct: [id number] Name: GERRY RICO Rep #:[id number] : 1945 79 From: Alex Sanon MD PCP: Dr. Marycarmen Rodriguez DO Status:ADM EDMUND Location: [place] [address] Subjective Subjective Patient is a 79-year-old gentleman with recent history of acute inferior STEMI which was complicated by distal PLV dissection who was discharged to a penitentiary facility brought back with shortness of breath. [...] 79.0 H, Lymph % (Auto) 7.9 L, Dawes % (Auto) 11.5 H, Eos % (Auto) [...] IMPRESSION: No acute cardiopulmonary process Reading Location: [facility] Physical Exam Narrative GENERAL: [...] PLV dissection who was discharged to a penitentiary facility brought back with shortness of breath. Patient was found to have elevated D-dimer admitted to monitored bed VQ scan ordered for subsequent evaluation 1. Exertional dyspnea ? Patient was found to have elevated D-dimer admitted to monitored bed VQ scan ordered for subsequent evaluation 2. 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 Patient was recently discharged to a penitentiary facility plan is for patient to be [...] Subcu heparin Charges/Coding Visit Charges Inpatient E&M: 40258 Subs Hosp L2 12/08/24 0921 <Electronically signed by Alex Sanon MD> Cosigner Signature (if applicable): CC: ~ Signed [facility] Work Phone: 1(313) 623-343708-07-2025 History and physical note Author Shaan Santos [facility] Note Date/Time December 07, 2024 4:4 8pm [facility] Medical Records Department [address] [place] [address] [place] [address] H&P Exam - Hospitalist 12/07/24 1633 MR#: [id number] Acct: [id number] Name: GERRY RICO Rep #:[id number] : 1945 79 From: Shaan Santos DO PCP: Dr. Marycarmen Rodriguez, DO Status:ADM EDMUND Location: [place] [address] HPI - General General Date of Service: [...] currently on room air and breathing comfortably. [facility] Medical History Anxiety Depression Diabetes Kidney disease [...] attack) Obstructive sleep apnea Atherosclerotic heart disease [place] coronary artery w/angina pectoris Type 2 diabetes [...] History household members: spouse and none housing: detention Smoking Status: Former smoker quit date: 05/03/98 [...] 79.0 H, Lymph % (Auto) 7.9 L, Dawes % (Auto) 11.5 H, Eos % (Auto) [...] IMPRESSION: No acute cardiopulmonary process Reading Location: [facility] Assessment & Plan Assessment/Plan [...] at bedside. Charges/Coding Visit Charges Inpatient E&M: 64521 Init Hosp L3 12/07/24 1648 <Electronically signed by Shaan Santos DO> Cosigner Signature (if applicable): CC: Dr. Shaan Santos DO; Dr. Marycarmen Rodriguez DO~ Signed [facility] Work Phone: [phone]) 569-442508-07-20[address] Rad[address] [facility]08-06-2025 Consult note Author Cyndie Frye [facility] Note Date/Time December 06, 2024 12: 22pm [facility] Medical Records Department [address] [place] [address] Counseling Note - Pharmacy 12/06/24 1222 MR#: [id number] Acct: [id number] Name: GERRY RICO Rep #:[id number] : 1945 79 From: Cyndie Frye PCP: Dr. Marycarmen Rodriguez, DO Status:ADM IN Y Location: [place] [address] [place] Med Reconciliation Pharmacy Service has performed discharge [...] ~ Signed [facility] Work Phone: 1(521) 469-643108-06-2025 Hospital Discharge instructionsAdditional Instructions Date of Discharge: 12/06/24[facility] Work Phone: 1(587) 726-147608-06-2025 Discharge summary Author Alex Sanon [facility] Note Date/Time December 06, 2024 11: 59am [facility] Medical Records Department [address] [place] [address] Transfer to [facility] MR#: [id number] Acct: [id number] Name: GERRY RICO Rep #:[id number] : [...] SERVICES PRIOR TO HIS/HER TRANSFER TO [facility]. 12/06/24 6556<Electronically signed by Alex Sanon MD> Diet Diet [...] 1. Recent history of acute inferior wall AR with persistent EKG changes; episode of ventricular [...] ? Requested for PT OT eval and rn social services to assist with discharge planning ? 12/06/2024 plan is for patient to be discharged to a penitentiary facility pending bed availability as well as [...] in before D/C Order can be placed): [facility] Facility 12/06/24 1159 <Electronically signed by Alex Sanon MD> Cosigner Signature (if applicable): CC: Dr. Abraham Ridley DO; Dr. Mickey Simpson MD; Dr. Marycarmen Rodriguez DO;Dr. Ramonita Herron MD ~ [facility] Work Phone: [phone] Discharge summary Author Alex [facility] Note Date/Time December 06, 2024 11: 55am [facility] Medical Records Department [address] [place] [address] Transfer to [facility] MR#: [id number] Acct: [id number] Name: GERRY RICO Rep #:[id number] : [...] SERVICES PRIOR TO HIS/HER TRANSFER TO [facility]. 12/06/24 1155<Electronically signed by Alex Sanon [...] 1. Recent history of acute inferior wall AR with persistent EKG changes; episode of ventricular [...] ? Requested for PT OT eval and rn social services to assist with discharge planning ? 12/06/2024 plan is for patient to be discharged to a penitentiary facility pending bed availability as well as [...] in before D/C Order can be placed): [facility] 12/06/24 1155 <Electronically signed by Alex Sanon MD> Cosigner Signature (if applicable): CC: Dr. Abraham Ridley DO; Dr. Mickey Simpson MD; Dr. Marycarmen Rodriguez DO;Dr. Ramonita Herron MD ~ [facility] Work Phone: 1([phone]) 288-915808-06-2025 Discharge summary Author Alex [facility] Note Date/Time December 06, 2024 11: 53am [facility] Medical Records Department [address] [place] [address] Discharge Summary 12/06/24 1146 MR#: [id number] Acct: [id number] Name: GERRY RCIO Rep #:[id number] : 1945 79 From: Alex Sanon MD PCP: Dr. Marycarmen Rodriguez DO Status:ADM IN Location: [facility] [id number] Providers Date of Admission: 12/03/24 Date [...] 1. Recent history of acute inferior wall AR with persistent EKG changes; episode of ventricular [...] ? Requested for PT OT eval and rn social services to assist with discharge planning ? 12/06/2024 plan is for patient to be discharged to a penitentiary facility pending bed availability as well as [...] 650 mg PO Q6H PRN Pain -02/0910/12/23 atorvastatin 40 mg tablet 40 mg PO [...] tablet 5 mg PO QPM blood pressure 06/25/25 metolazone 2.5 mg tablet 2.5 mg PO [...] 72.7 H, Lymph % (Auto) 11.6 L, Dawes % (Auto) 12.9 H, Eos % (Auto) [...] in before D/C Order can be placed): [facility] Charges/Coding Visit Charges Inpatient E&M: 02213 Disch Hosp >30min 12/06/24 1153 <Electronically signed by lAex Sanon MD> Cosigner Signature (if applicable): CC: Dr. Alex Sanon MD; Dr. Marycarmen Rodriguez, DO~ Signed [facility] Work Phone: 1(755) 310-410908-06-2025 [facility]08-06-2025 Progress note Author Alex Sanon [facility] Note Date/Time December 06, 2024 8:4 0am [facility] Medical Records Department [address] [place] [address] Progress Note - Hospitalist 12/06/24 0838 MR#: [id number] Acct: [id number] Name: GERRY RICO Rep #:[id number] : 1945 79 From: Alex Sanon MD PCP: Dr. Marycarmen Rodriguez, Status:ADM IN Location: [place] [id number]- [id number] Reason for Visit Chief Complaint: Chest Pain with STEMI alert. Subjective Subjective Patient seen remains physically deconditioned. Was seen in consultation by physical therapy recommendation is for patient to be discharged to a penitentiary facility case management subsequently consulted Objective Data [...] 72.7 H, Lymph % (Auto) 11.6 L, Dawes % (Auto) 12.9 H, Eos % (Auto) [...] 1. Recent history of acute inferior wall AR with persistent EKG changes; episode of ventricular [...] ? Requested for PT OT eval and rn social services to assist with discharge planning ? 12/06/2024 plan is for patient to be discharged to a penitentiary facility pending bed availability as well as insurance precertification Time spent in the patient's overall evaluation,decision-making process, review of diagnostic data, adjustment of management, discussion with other providers, nursing nursing and ancillary staff involved in patient's care documentation, 36 Minutes Charges/Coding Visit Charges Inpatient E&M: 29714 Subs Hosp L2 Date medically ready for discharge: 12/06/24 Reason for DC delay: Precert pending from insurance 12/06/24 0840 <Electronically signed by Alex Sanon MD> Cosigner Signature (if applicable): CC: ~ Signed [facility] Work Phone: 1(846) 992-364608-06-2025 Progress note Author Marcin Araujo [facility] Note Date/Time December 06, 2024 7:5 1am [facility] Medical Records Department [address] [place] [address] Progress Note - Cardiology 12/06/24 0747 MR#: [id number] Acct: [id number] Name: GERRY RICO Rep #:[id number] : 1945 79 From: Marcin Araujo MD PCP: Dr. Marycarmen Rodriguez, DO Status:ADM IN Location: [place] [address] Subjective Subjective Patient seen and evaluated. Appears [...] 72.7 H, Lymph % (Auto) 11.6 L, Dawes % (Auto) 12.9 H, Eos % (Auto) [...] 72.7 H, Lymph % (Auto) 11.6 L, Dawes % (Auto) 12.9 H, Eos % (Auto) [...] Assessment/Plan (1) History of acute inferior wall AR: PLAN: Patient underwent cardiac catheterization and the [...] ~ Signed [facility] Work Phone: 1(344) 831-400108-05-2025 Progress note Author Alex Sanon [facility] Note Date/Time December 05, 2024 10: 29am [facility] Medical Records Department [address] [place] [address] Progress Note - Hospitalist 12/05/24 1019 MR#: [id number] Acct: [id number] Name: GERRY RICO Rep #:[id number] : 1945 79 From: Alex Sanon MD PCP: Dr. Marycarmen Rodriguez, DO Status:ADM IN Location: [place] [address] Reason for Visit Chief Complaint: Chest Pain [...] 1. Recent history of acute inferior wall AR with persistent EKG changes; episode of ventricular [...] ? Requested for PT OT eval and rn social services to assist with discharge planning Time spent in the patient's overall evaluation,decision-making process, review of diagnostic data, adjustment of management, discussion with other providers, nursing nursing and ancillary staff involved in patient's care documentation, 38 Minutes Charges/Coding Visit Charges Inpatient E&M: 61306 Subs Hosp L2 12/05/24 1029 <Electronically signed by Alex Sanon MD> Cosigner Signature (if applicable): CC: ~ Signed [facility] Work Phone: 1(598) 262-735008-05-2025 Progress note Author Marcin Araujo [facility] Note Date/Time December 05, 2024 7:5 3am [facility] Medical Records Department [address] [place] [address] Progress Note - Cardiology 12/05/24 0745 MR#: [id number] Acct: [id number] Name: GERRY RICO Rep #:[id number] : 1945 79 From: Marcin Araujo MD PCP: Dr. Marycarmen Rodriguez, DO Status:ADM IN Location: [place] [address] Subjective Subjective Patient seen and evaluated. Doing [...] Assessment/Plan (1) History of acute inferior wall AR: PLAN: Patient underwent cardiac catheterization and the [...] discharged. Will also keep magnesiumover 2. 12/05/24 0308 <Electronically signed by Marcin Araujo MD> Cosigner Signature (if applicable): CC: ~ Signed [facility] Work Phone: 1([phone]) 253-661008-04-2025 Progress note Author Abraham Ridley [facility] Note Date/Time December 04, 2024 2:2 1pm [facility] Medical Records Department [address] [place] [address] Progress Note - Hospitalist 12/04/24 1057 MR#: [id number] Acct: [id number] Name: GERRY RICO Rep #:[id number] : 1945 79 From: Abraham inman DO PCP: Dr. Marycarmen Rodriguez, DO Status:ADM IN Location: [place] [address] Reason for Visit Chief Complaint: Chest Pain [...] 73.9 H, Lymph % (Auto) 11.1 L, Dawes % (Auto) 11.9 H, Eos % (Auto) [...] who presented [facility] on 12/02/2024 as a STEMI alert. 1. Recent history of acute inferior wall AR with persistent EKG changes; episode of ventricular [...] 35 minutes. Charges/Coding Visit Charges Inpatient E&M: 43701 Subs Hosp L2 12/04/24 1421 <Electronically signed by Abraham Ridley DO> Cosigner Signature (if applicable): CC: ~ Signed [facility] Work Phone: [phone]) 694-343208-04-2025 Progress note Author Marcin Araujo [facility] Note Date/Time December 04, 2024 8:5 2am [facility] Medical Records Department [address] [place] [address] Progress Note - Cardiology 12/04/24724 MR#: [id number] Acct: [id number] Name: GERRY RICO Rep #:[id number] : 1945 79 From: Marcin Araujo MD PCP: Dr. Marycarmen Rodriguez, Status:ADM IN Location: [place] [address] Subjective Subjective Patient seen and evaluated. Sleeping. [...] Clarity Clear, Urine pH 6.0, Ur Specific [place] 1.015, Urine Protein 15 H, Urine Glucose [...] 75.5 H, Lymph % (Auto) 10.5 L, Dawes % (Auto) 11.4 H, Eos % (Auto) [...] 73.9 H, Lymph % (Auto) 11.1 L, Dawes % (Auto) 11.9 H, Eos % (Auto) [...] Clarity Clear, Urine pH 6.0, Ur Specific [place] 1.015, Urine Protein 15 H, Urine Glucose [...] 75.5 H, Lymph % (Auto) 10.5 L, Dawes % (Auto) 11.4 H, Eos % (Auto) 1.8, Baso % (Auto) 0.2, Absolute Neuts (auto) 6.9, Nucleated RBC % 0, Sodium 134, Potassium 3.7, Chloride 100, Carbon Dioxide 18.7 L, Anion Gap 15, BUN 53 H, Creatinine 2.58 H, Est GFR (MDRD) Non-Af 25 L, BUN/Creatinine Ratio 20.6 H, Glucose 154 H, Calcium 8.9, Phosphorus 3.4, Magnesium 2.5 H, Total Bilirubin 1.27 08/04/25 05:02: WBC 9.7, RBC 3.59 L, Hgb 10.5 L, Hct 31.5 L, MCV 87.7, MCH 29.2,MCHC 33.3, Plt Count 126 L, MPV 13.7 H, Immature Gran % (Auto) 0.600, Neut % (Auto) 73.9 H, Lymph % (Auto) 11.1 L, Dawes % (Auto) 11.9 H, Eos % (Auto) 2.2, Baso % (Auto) 0.3, Absolute Neuts (auto) 7.1, Nucleated RBC % 0, Sodium 137, Potassium 3.1 L, Chloride 96 L, Carbon Dioxide 21.4, Anion Gap 19 H, BUN 49 H, Creatinine 2.53 H, Est GFR (MDRD) Non-Af 25 L, BUN/Creatinine Ratio 19.4, [id number] H, Calcium 9.2 Rhythm: EKG: ECHO: Stress [...] Assessment/Plan (1) History of acute inferior wall AR: PLAN: Patient underwent cardiac catheterization and the [...] ~ Signed [facility] Work Phone: 1(523) 763-853608-04-2025 Consult note Author Marcin Araujo [facility] Note Date/Time December 04, 2024 6:4 7am [facility] Medical Records Department [address] [place] [address] Consultation - Cardiology 12/03/24 1241 MR#: [id number] Acct: [id number] Name: GERRY RICO Rep #:[id number] : 1945 79 From: Marcin Araujo MD PCP: Dr. Marycarmen Rodriguez, DO Status:ADM IN Location: [place] [id number]- [id number] Documented by User: Dr. Mickey Simpson MD 12/03/24 16:19 Assessment & Plan Assessment/Plan (1) History of acute inferior wall AR: (2) Coronary artery vasospasm: PLAN: - Patient [...] which the patient was brought into the Medical Anthropology Director urgent cardiac catheterization was performed via left [...] kidney disease, stage 3 Atherosclerotic heart disease [place] coronary artery w/angina pectoris Type 2 diabetes [...] 76.7 H, Lymph % (Auto) 8.9 L, Dawes % (Auto) 12.7 H, Eos % (Auto) [...] Calcium 9.1, Troponin T High Sens > 64907 H* D 12/02/24 20:29: Activated Clotting Time 245 H 12/02/24 22:43: Troponin T Hi Sens 2 Hr > 07375 H* 12/03/24 01:17: Troponin T Hi Sens 4Hr > 29117 H* 12/03/24 06:14: POC Glucose 140 H 12/03/24 07:20: Urine Color Yellow, Urine Clarity Clear, Urine pH 6.0, Ur Specific [place] 1.015, Urine Protein 15 H, Urine Glucose [...] 75.5 H, Lymph % (Auto) 10.5 L, Dawes % (Auto) 11.4 H, Eos % (Auto) [...] 76.7 H, Lymph % (Auto) 8.9 L, Dawes % (Auto) 12.7 H, Eos % (Auto) [...] Clarity Clear, Urine pH 6.0, Ur Specific [place] 1.015, Urine Protein 15 H, Urine Glucose [...] 75.5 H, Lymph % (Auto) 10.5 L, Dawes % (Auto) 11.4 H, Eos % (Auto) [...] Assessment/Plan (1) History of acute inferior wall AR: (2) Coronary artery vasospasm: (3) CHF (congestive heart failure): QUALIFIERS: Heart failure chronicity: acute on chronic Heart failure type: diastolic Qualified Code(s): I50.33 - Acute on chronic diastolic (congestive) heart failure (4) Dyslipidemia: HPI Consult Data Date of Consult: 12/04/24 [facility] Medical History Anemia Diabetes mellitus Chronic kidney [...] kidney disease, stage 3 Atherosclerotic heart disease [place] coronary artery w/angina pectoris Type 2 diabetes [...] Simpson MD; Dr. Marycarmen Rodriguez DO~ Signed [facility] Work Phone: 1(465) 957-623408-03-2025 Progress note Author Ramonita Herron [facility] Note Date/Time December 03, 2024 3:5 7pm [facility] Medical Records Department [address] [place] [address] Progress Note - Hospitalist 12/03/24 1548 MR#: [id number] Acct: [id number] Name: GERRY RICO Rep #:[id number] : 1945 79 From: Ramonita Herron MD PCP: Dr. Marycarmen Rodriguez DO Status:ADM IN Location: [place] [address] Reason for Visit Chief Complaint: Chest Pain [...] 76.7 H, Lymph % (Auto) 8.9 L, Dawes % (Auto) 12.7 H, Eos % (Auto) [...] Calcium 9.1, Troponin T High Sens > 23390 H* D 12/02/24 20:29: Activated Clotting Time 245 H 12/02/24 22:43: Troponin T Hi Sens 2 Hr > 41381 H* 12/03/24 01:17: Troponin T Hi Sens 4Hr > 00324 H* 12/03/24 06:14: POC Glucose 140 H 12/03/24 07:20: Urine Color Yellow, Urine Clarity Clear, Urine pH 6.0, Ur Specific [place] 1.015, Urine Protein 15 H, Urine Glucose [...] 75.5 H, Lymph % (Auto) 10.5 L, Dawes % (Auto) 11.4 H, Eos % (Auto) [...] Recent STEMI -Was emergently taken to the Medical Anthropology Director 11/30 due to a STEMI. Emergent cath [...] on 12/02 and went emergently to the Medical Anthropology Director however no intervention was needed or warranted [...] Herron MD Charges/Coding Visit Charges Inpatient E&M: 12670 Subs Hosp L2 12/03/24 3793 <Electronically signed by Ramonita Herron MD> Cosigner Signature (if applicable): CC: ~ Signed [facility] Work Phone: 1(450) 470-965908-03-2025 History and physical note Author Alex Resendez [facility] Note Date/Time December 03, 2024 5:5 6am [facility] Medical Records Department [address] [place] [address] H&P Exam - Hospitalist 12/02/242049 MR#: [id number] Acct: [id number] Name: GERRY RICO Rep #:[id number] : 1945 79 From: Alex Colon DO PCP: Dr. 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 Mr. [...] symptoms are very similar to his previous AR's. There was no report of associated fever,chills, [...] is expected to extend beyond 2 midnights. 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 Patient taken for emergent LHC by [facility] with the patient suspected to have acute coronary vasospasm with no lesion noted so patient will be managed in PCU. Continue present treatment with baby aspirin, ticagrelor and IV heparin. Give acetaminophen as needed for [id number] (level 1-5/10) pain or fever. Give morphine [...] 75 minutes. Charges/Coding Visit Charges Inpatient E&M: 04885 Init Hosp L3 12/03/24 0556 <Electronically signed by Alex Sow DO> Cosigner Signature (if applicable): CC: Dr. Alex Sow DO; Dr. Marycarmen Rodriguez DO~ Signed [facility] Work Phone: 1([phone]) [phone] Discharge summary Author Rasheed Canela [facility] Note Date/Time December 02, 2024 8:5 3pm [facility] Medical Records Department [address] [place] [address] Emergency Department Summary 12/02/24 MR#: [id number] Acct: [id number] Name: GERRY RICO Rep #:[id number] : [...] EKG changes consistent with a ST elevation AR. He had 3 to 4 mm of [...] Prior Similar Symptoms: Yes and With Prior AR CVD Risk Factors: Positive for Hypertension, Diabetes and Hypercholesterolemia [facility] Medical History Anemia Diabetes mellitus [...] kidney disease, stage 3 Atherosclerotic heart disease [place] coronary artery w/angina pectoris Type 2 diabetes [...] was reviewed. Spoke with Dr. Simpson the risk advisor. He was made aware of patient's history, EKG findings and prehospital treatment. Lab Data Attestation: I reviewed the patient's lab results. Lab results narrative: EKG was not repeated since prehospital EKG revealed ST elevation AR with reciprocal changes. CBC reveals mild anemia [...] 76.7 H Lymph % (Auto) 8.9 L Dawes % (Auto) 12.7 H Eos % (Auto) [...] healthcare provider: Hospitalist (Dr. Alex Handley) and Manager Surgical (poundmaster) Critical Care Time Critical Care Time: Yes Critical care time (excluding procedures): 30-74 minutes (15), Including time spent: (History, physical, documentation, prehospital med direction, discussion with , review of prior records and independent rotation of EKG), Discussing w/Patient &/or Family/Global Security Architect (Spoke with who informing that he just left the hospital this afternoon to attend his granddaughter's wedding.), Discussing w/Consultants (poundmaster and hospitalist) and Arranging Admission or Transfer Discharge Plan Dx/Rx/DC Orders Clinical Impression: Acute ST elevation myocardial infarction (STEMI) of inferior wall, Obstructive sleep apnea, Obesity, Chronic kidney disease, Diabetes mellitus, Hyperlipidemia Disposition Disposition: Acute Care Hospital [facility] What to do if you have Problems For any increased pain, shortness of breath, bleeding, nausea or vomiting, chestpain, or any unexpected problems, contact your Primary Care Provider. Call [facility] ([phone]) or report to the closest Emergency Room. Call 911 if necessary. 12/02/242052 <Electronically signed by Rasheed Canela MD> Cosigner Signature (if applicable): CC: Dr. Marycarmen Rodriguez, DO ~ Signed [facility] Work Phone: 1([phone]) 636-397408-02-2025 Consult note Author Jamar Tapia [facility] Note Date/Time December 02, 2024 12: 23pm [facility] Medical Records Department [address] [place] [address] Consultation - Neurology 12/02/24 1207 MR#: [id number] Acct: [id number] Name: GERRY RICO Rep #:[id number] : 1945 79 From: Jamar Hooker PCP: Dr. Marycarmen Rodriguez, Status:ADM [facility] Assessment and Plan: Neuro Assessment/Plan GERRY RICO [...] questions or concerns. Stroke to sign off. [facility] Medical History (Updated 12/01/24 @ 09:47 by [...] kidney disease, stage 3 Atherosclerotic heart disease [place] coronary artery w/angina pectoris Type 2 diabetes [...] Rate (L/min) 2 3 2 12/01/24 19:45 08/01/25 20:00 12/01/24 20:15 Temperature Temperature Source Pulse [...] 78.9 H, Lymph % (Auto) 7.6 L, Dawes % (Auto) 12.0 H, Eos % (Auto) [...] 2. Age-related senescent changes. Reading Location: [facility] Active Medications Active Medications Active [...] mls @ 15 mls/hr 11/30/24 17:25 IV .[id number] PRN Saline Flush Sodium Chloride 250 mls @ 15 mls/hr 11/30/24 17:25 IV .[id number] PRN Additional IVPB Infusion Insulin Human Lispro 0 unit 11/30/24 22:00 12/02/24 06:30 Insulin Lispro 100 Unit/Ml Insuln.Pen SC Not Given ACHS [facility] Protocol Labetalol HCl 10 - 20 mg [...] 10:00 Metolazone 2.5 Mg Tablet PO DAILY [facility] Protocol Metoprolol Succinate 25 mg 12/01/24 10:00 [...] Glucerna Shake 120 Ml Liquid PO TIDCM [facility] Ondansetron HCl 4 mg 11/30/24 17:08 12/01/24 [...] or with change in RN caregiver Freq: [id number] Protocol: Activity Type Activity Date Activity User E-sign Co-sign Detail Recorded Client Recorded Date Recorded By Document 12/01/24 20:15 CD [id number] 12/01/24 20:28 CD 12/01/24 20:15 NIH Stroke Scale [NIHSS] A score of 0 is "normal" or asymptomatic . Total possible score is [...] 5 Query Text:A score of 0 is "normal" or asymptomatic. Total possible score is 42 [...] and with change in RN caregiver. Freq: [id number] Protocol: Activity Type Activity Date Activity User E-sign Co-sign Detail Recorded Client Recorded Date Recorded By Document 12/02/24 10:00 GRIS [id number] 12/02/24 10:20 GRIS 12/02/24 10:00 NIH Stroke Scale [NIHSS] A score of 0 is "normal" or asymptomatic . Total possible score is [...] 3 Query Text:A score of 0 is "normal" or asymptomatic. Total possible score is 42 [...] DO~ Signed [facility] Work Phone: 1([phone]) 678-704408-02-2025 Discharge summary Author Rasheed Canela [facility] Note Date/Time December 02, 2024 8:5 3pm [facility] Medical Records Department [address] [place] [address] Emergency Department Summary 12/02/24 MR#: [id number] Acct: [id number] Name: GERRY RICO Rep #:[id number] : [...] EKG changes consistent with a ST elevation AR. He had 3 to 4 mm of [...] Prior Similar Symptoms: Yes and With Prior AR CVD Risk Factors: Positive for Hypertension, Diabetes and [facility]olesterolemia [facility] Medical History Anemia Diabetes mellitus Chronic kidney [...] kidney disease, stage 3 Atherosclerotic heart disease [place] coronary artery w/angina pectoris Type 2 diabetes [...] was reviewed. Spoke with Dr. Simpson the risk advisor. He was made aware of patient's history, EKG findings and prehospital treatment. Lab Data Attestation: I reviewed the patient's lab results. Lab results narrative: EKG was not repeated since prehospital EKG revealed ST elevation AR with reciprocal changes. CBC reveals mild anemia [...] 76.7 H Lymph % (Auto) 8.9 L Dawes % (Auto) 12.7 H Eos % (Auto) [...] healthcare provider: Hospitalist (Dr. Alex Handley) and Manager Surgical (poundmaster) Critical Care Time Critical Care Time: Yes Critical care time (excluding procedures): 30-74 minutes (15), Including time spent: (History, physical, documentation, prehospital med direction, discussion with , review of prior records and independent rotation of EKG), Discussing w/Patient &/or Family/Global Security Architect (Spoke with who informing that he just left the hospital this afternoon to attend his granddaughter's wedding.), Discussing w/Consultants (poundmaster and hospitalist) and Arranging Admission or Transfer Discharge Plan Dx/Rx/DC Orders Clinical Impression: Acute ST elevation myocardial infarction (STEMI) of inferior wall, Obstructive sleep apnea, Obesity, Chronic kidney disease, Diabetes mellitus, Hyperlipidemia Disposition Disposition: Acute Care Hospital [facility] What to do if you have Problems For any increased pain, shortness of breath, bleeding, nausea or vomiting, chestpain, or any unexpected problems, contact your Primary Care Provider. Call [facility] ([phone]) or report to the closest Emergency Room. Call 911 if necessary. 12/02/242052 <Electronically signed by Rasheed Canela MD> Cosigner Signature (if applicable): CC: Dr. Marycarmen Rodriguez, DO ~ Signed [facility] Work Phone: 1(201) 321-234808-02-2025 Hospital Discharge instructionsAdditional Instructions 1. It is very important to not miss any doses of your ticagrelor (Brilinta) and aspirin. Please take these as prescribed with no missed doses. If you miss doses you could clot off your stents. Date of Discharge: 12/02/24[facility] Work Phone: 1(141) 275-701408-02-2025 [facility]08-01-2025 Progress note Author Abraham Ridley [facility] Note Date/Time December 01, 2024 8:2 6pm [facility] Medical Records Department [address] [place] [address] Progress Note - Hospitalist 12/01/242020 MR#: [id number] Acct: [id number] Name: GERRY RICO Rep #:[id number] : 1945 79 From: Abraham inman DO PCP: Dr. Marycarmen Rodriguez, DO Status:ADM IN Location: [place] [address] Hospitalist Note Stroke alert called around 7 PM. Last known well 6:55 PM. Patient reported to [facility] that he had left facial numbness [...] that he has had several TIAs in thenyst and has had similar symptoms with these [...] ~ Signed [facility] Work Phone: 1(274) 164-290308-01-20[address] [facility]08-01-2025 Progress note Author Nickie Danielson [facility] Note Date/Time December 01, 2024 3:5 0pm [facility] Medical Records Department [address] [place] [address] Progress Note - Hospitalist 12/01/24712 MR#: [id number] Acct: [id number] Name: GERRY RICO Rep #:[id number] : 1945 79 From: Nickie Danielson DO PCP: Dr. Marycarmen Rodriguez, DO Status:ADM IN Location: [place] [id number] Reason for Visit Chief Complaint: STEMI [...] 80.9 H, Lymph % (Auto) 10.1 L, Dawes % (Auto) 7.7, Eos % (Auto) 0.4, Baso % (Auto) 0.2, Absolute Neuts (auto) 15.5 H, Absolute Lymphs (auto) 1.93, Nucleated RBC % 0.1, PT 16.1 H, INR 1.3, APTT 112.9 H*, Sodium 135, Potassium 4.4, Chloride 98, Carbon Jfqsxjv45.3 L, Anion Gap 19 H, BUN 45 [...] evidence of acute pulmonary disease. Reading Location: [id number] Physical Exam Const alert, oriented x3, no [...] subcu heparin Charges/Coding Visit Charges Inpatient E&M: 14640 Subs Hosp L2 12/01/24 1550 <Electronically signed by Nickie Danielson DO> Cosigner Signature (if applicable): CC: ~ Signed [facility] Work Phone: 1(317) 800-224708-01-2025 Progress note Author Marcin Araujo [facility] Note Date/Time December 01, 2024 7:3 7am [facility] Medical Records Department [address] [place] [address] Progress Note - Cardiology 12/01/24 0734 MR#: [id number] Acct: [id number] Name: GERRY RICO Rep #:[id number] : 1945 79 From: Marcin Arajuo MD PCP: Dr. Marycarmen Rodriguez DO Status:ADM [...] 80.9 H, Lymph % (Auto) 10.1 L, Dawes % (Auto) 7.7, Eos % (Auto) 0.4, Baso % (Auto) 0.2, Absolute Neuts (auto) 15.5 H, Absolute Lymphs (auto) 1.93, Nucleated RBC % 0.1, PT 16.1 H, INR 1.3, APTT 112.9 H*, Sodium 135, Potassium 4.4, Chloride 98, Carbon Nuhgues51.3 L, Anion Gap 19 H, BUN 45 [...] 80.9 H, Lymph % (Auto) 10.1 L, Dawes % (Auto) 7.7, Eos % (Auto) 0.4, [...] ~ Signed [facility] Work Phone: 1([phone]) 195-724507-31-2025 Discharge summary Author Isael Bernabe [facility] Note Date/Time November 30, 2024 9:35 pm [facility] Medical Records Department [address] [place] [address] Emergency Department Summary 11/30/24 MR#: [id number] Acct: [id number] Name: GERRY RICO Rep #:[id number] : [...] was sent, they administeredaspirin, Brilinta, and heparin. [facility] Medical History Diabetes mellitus Chronic [...] kidney disease, stage 3 Atherosclerotic heart disease kar[place] coronary artery w/angina pectoris Type 2 diabetes [...] laboratory work that was requested by the Medical Anthropology Director. Does not have elevation of his white [...] 80.9 H Lymph % (Auto) 10.1 L Dawes % (Auto) 7.7 Eos % (Auto) 0.4 [...] myocardial infarction Disposition Disposition: Acute Care Hospital [facility] Discharge Date/Time: 11/30/24 15:21 What to do if you have Problems For any increased pain, shortness of breath, bleeding, nausea or vomiting, chestpain, or any unexpected problems, contact your Primary Care Provider. Call [facility] ([phone]) or report to the closest Emergency Room. Call 911 if necessary. 11/30/242134 <Electronically signed by Isael Bernabe MD> Cosigner Signature (if applicable): CC: Dr. Marycarmen Rodriguez, DO ~ Signed [facility] Work Phone: 1(340) 633-769107-31-2025 Progress note [facility] Date/Time November 30, 2024 9:33 pm [facility] Medical Records Department [address] [place] [address] Quality Report 11/30/24 1605 MR#: [id number] Acct: [id number] Name: GERRY RICO Rep #:[id number] : 1945 79 From: Isael Bernabe MD PCP: Dr. Marycarmen Rodriguez, DO Status:ADM IN Y Location: ICU CVICU20 [...] ~ Signed [facility] Work Phone: 1([phone]) 670-580707-31-2025 History and physical note Author Abraham Ridley [facility] Note Date/Time November 30, 2024 9:30 pm [facility] Medical Records Department [address] [place] [address] H&P Exam - Hospitalist 11/30/24 1705 MR#: [id number] Acct: [id number] Name: GERRY RICO Rep #:[id number] : 1945 79 From: Abraham inman DO PCP: Dr. Marycarmen Rodriguez, DO Status:ADM IN Location: ICU CVICU20 3-1 HPI - General General Date of Admission: 11/30/24 Date of Service: 11/30/24 Chief Complaint: STEMI HPI Narrative GERRY RICO, is a 79 M who [facility] as a STEMI alert. Follows with [place] cardiology with complex CAD history, see office [...] STEMI. He was taken emergently to the Medical Anthropology Director and coronary angiography revealed a subacute stent [...] room air. No other acute concerns currently. 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 LzotQ9n from 2022 was 7.7%. Repeat A1c ordered. [...] 75 minutes. Charges/Coding Visit Charges Inpatient E&M: 62565 Init Hosp L3 11/30/24 2130 <Electronically signed by Abraham Ridley DO> Cosigner Signature (if applicable): CC: Dr. Abraham Ridley DO; Dr. Marycarmen Rodriguez DO~ Signed [facility] Work Phone: 1([phone]) 320-235307-31-2025 Radiology [address] [facility]2025 Consult note Author Jose Hay [facility] Note Date/Time November 30, 2024 4:51 pm [facility] Medical Records Department [address] [place] [address] Consultation - Cardiology 11/30/24 1642 MR#: [id number] Acct: [id number] Name: GERRY RICO Rep #:[id number] : [...] infarction. Subsequently a STEMI alert was called. 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 Marycarmen Rodriguez, Status:ADM EDMUND Y Location: [place] [address] [place] Med Reconciliation Pharmacy Service has performed discharge [...] ~ Signed [facility] Work Phone: [phone] 124-772707-28-2025 Discharge summary Author Jose Hay [facility] Note Date/Time November 27, 2024 11:3 5am [facility] Medical Records Department [address] [place] [address] Instructions for Home/Discharge Instructions 11/27/24 1128 MR#: [id number] Acct: [id number] Name: GERRY RICO Rep #:[id number] : [...] Care Provider: Marycarmen Rodriguez Instructions Print Language: [place] Rican Discharge Orders/Prescriptions Prescriptions: New furosemide 80 mg [...] ~ Signed [facility] Work Phone: 1(515) 667-897307-27-20[address] [facility]07-27-2025 [address] [facility]07-27-2025 Radiology [address] [facility] 11-26-2024 Radiology Diagnostic study [facility]07-27-2025 Radiology Diagnostic study [facility]07-27-2025 Radiology Diagnostic study [facility]07-27-2025 Discharge summary Author Isael Bernabe [facility] Note Date/Time November 26, 2024 9:41 pm [facility] Medical Records Department [address] [place] [address] Emergency Department Summary 11/26/24 MR#: [id number] Acct: [id number] Name: GERRY RICO Rep #:[id number] : [...] presents status post fall with chest heaviness. 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 He was given 1 [place] which he usually takes at home for pain. He was able to ambulate without difficulty. At this point in time, he is motivated for discharge. I do not feel that he requires admission at this time or observation. I feel he can be discharged to follow-upwith his cardiac catheterization tomorrow morning. Patient will continue his [place] at home and follow-up as previously directed. [...] 71.8 H Lymph % (Auto) 16.7 L Dawes % (Auto) 9.5 Eos % (Auto) 1.3 [...] IMPRESSION: No acute intracranial process. Reading Location: [facility] Cervical Spine CT 11/26/24 18:03 IMPRESSION: No acute compression deformity, fracture, or subluxation. Moderate multilevel degenerative changes of the cervical spine. Cervical ACDF with interbody spacers spanning C4-C6 without hardware complications. Reading Location: [facility] Chest X-Ray 11/26/24 18:03 IMPRESSION: Negative for edema Reading Location: [facility] Knee X-Ray 11/26/24 18:03 IMPRESSION: Degenerative changes without fracture Reading Location: [facility] Hand X-Ray 11/26/24 18:07 IMPRESSION: Degenerative changes. No visible fracture. Reading Location: [facility] Knee X-Ray 11/26/24 18:07 IMPRESSION: Joint effusion Reading Location: [facility] Management Discussion w/another healthcare provider: [facility] (Dr. Araujo) Discharge Plan Triage Chief Complaint: [...] with new or worsening symptoms. Print Language: [place]ican Disposition Disposition: Home, Self Care What to do if you have Problems For any increased pain, shortness of breath, bleeding, nausea or vomiting, chestpain, or any unexpected problems, contact your Primary Care Provider. Call [facility] ([phone]) or report to the closest Emergency Room. Call 911 if necessary. 11/26/242140 <Electronically signed by Isael Bernabe MD> Cosigner Signature (if applicable): CC: Dr. Marycarmen Rodriguez, ~ Signed [facility] Work Phone: 1(406) 124-493407-27-2025 Hospital Discharge instructionsAdditional Instructions Have your cardiac catheterization performed tomorrow as scheduled at 8:30 in the morning. Return with new or worsening symptoms.[facility] Work Phone: 1(972) 564-439307-24-20[address] [facility]07-21-2025 Radiology [address] 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 October 25, 2024 7:54am Coronary artery [...] 2024 10:00am [facility] Work Phone: 1(843) 734-832105-21-2025 Evaluation note* Diagnosis Onset Date Resolution Status Admit Date COPD (chronic obstructive pulmonary disease) chronic September 20 10:13am Diastolic heart failure chronic M ay 2024 10:13am Obesity chronic September 20, 2024 10:13am Obstructive sleep apnea chronic M ay 2024 10:13am Shortness of breath acute October 25, 2024 7:54am Bilateral lower extremity edema 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 October 25, 2024 7:54am Chest pain chronic October 25 7:54am Chronic kidney disease, stage 3 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 October 25, 2024 7:54am Coronary artery [...] 22, 2024 10:53am Bilateral lower extremity edema 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 November 22, 2024 10:53am Chest pain chronic November 22 10:53am Chronic kidney disease, stage 3 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 November 22, 2024 10:53am Essential hypertension chronic Ju ly 2024 10:53am Hyperlipidemia chronic November 22, 2024 10:53am Obesity chronic November 22 10:53am Type 2 diabetes mellitus wit hout complications chronic November 22, 2024 10:53am [facility] Work Phone: 1(440) 623-491005-21-2025 Evaluation note* Diagnosis Onset Date Resolution Status Admit Date COPD (chronic obstructive pulmonary disease) chronic September 20 10:13am Diastolic heart failure chronic [facility] 2024 10:13am Obesity chronic September 20, 2024 10:13am Obstructive sleep apnea chronic M ay 2024 10:13am Shortness of breath acute October 25, 2024 7:54am Bilateral lower extremity edema 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 October 25, 2024 7:54am Chest pain chronic October 25 7:54am Chronic kidney disease, stage 3 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 October 25, 2024 7:54am Coronary artery [...] 22, 2024 10:53am Bilateral lower extremity edema 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 November 22, 2024 10:53am Chest pain chronic November 22 10:53am Chronic kidney disease, stage 3 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 November 22, 2024 10:53am Essential hypertension [...] 2024 4:59pm Chronic kidney disease, stage 3 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 November 30, 2024 4:59pm Coronary artery disease chronic J shannon 2024 4:59pm Dyslipidemia chronic November 30, 2 025 4:59pm Essential hypertension chronic Ju ly 2024 4:59pm [facility] Work Phone: 1(225) 916-955105-21-2025 Evaluation note* Diagnosis Onset Date Resolution Status [...] 2024 4:59pm [facility] Work Phone: 1(571) 863-216905-21-2025 Evaluation note* Diagnosis Onset Date Resolution Status [...] 2024 8:29pm [facility] Work Phone: 1(704) 964-842305-21-2025 Evaluation note* Diagnosis Onset Date Resolution Status [...] 2024 2:01am History of acute inferior wall AR acute December 03, 2024 2:01am Hyponatremia acute [...] 2:01am Dyslipidemia inactive December 03, 2024 2:01am [facility] Work Phone: 1(276) 490-242305-21-2025 Evaluation note* Diagnosis Onset Date Resolution Status [...] 2024 2:01am History of acute inferior wall AR acute December 03, 2024 2:01am Hyponatremia acute [...] acute 2024 4:24pm Shortness of breath acute Augus t 2024 4:24pm [facility] Work Phone: 1(991) 344-445805-21-2025 Evaluation note* Diagnosis Onset Date Resolution Status Admit Date COPD (chronic obstructive pulmonary disease) chronic September 20 10:13am Diastolic heart failure chronic [facility] 2024 10:13am Obesity chronic September 20, 2024 10:13am Obstructive sleep apnea chronic [facility] 2024 10:13am Shortness of breath acute October 25, 2024 7:54am Bilateral lower extremity edema chronic October 25, 2024 7:54am Hyperlipidemia chronic October 25, 2024 7:54am Obesity chronic October 25 7:54am Type 2 diabetes mellitus without complications chronic October 25, 2024 7:54am Chest pain resolved October 25 7:54am Coronary artery disease inactive [facility] 2024 7:54am Essential hypertension inactive [facility] 2024 7:54am Chronic kidney disease, stag e [...] 2024 2:01am History of acute inferior wall AR acute December 03, 2024 2:01am Hyponatremia acute [...] Au 2024 4:24pm Shortness of breath acute Augus t 2024 4:24pm [facility] Work Phone: 1(476) 587-995805-21-2025 Evaluation note* Diagnosis Onset Date Resolution Status Admit Date COPD (chronic obstructive pulmonary disease) chronic September 20 10:13am Diastolic heart failure chronic M 2024 10:13am Obesity chronic September 20, 2024 10:13am Obstructive sleep apnea chronic ay 2024 10:13am Bilateral lower extremity edema [...] 2024 2:01am History of acute inferior wall AR inactive December 03, 2024 2:01am DEAN (dyspnea on exertion) resolved December 07, 2024 4:24pm Shortness of breath resolved t 2024 4:24pm Chest pain inactive December 07 [...] December 12 10:14am Shortness of breath resolved Augus t 2024 10:14am Essential hypertension inactive Au [facility] 2024 10:14am Chronic kidney disease, stag e 3 deleted December 12 10:14am [facility] Work Phone: 1([phone]) 583-431905-21-2025 Evaluation note* Diagnosis Onset Date Resolution Status Admit Date COPD (chronic obstructive pulmonary disease) chronic September 20 10:13am Diastolic heart failure chronic [facility] 2024 10:13am Obesity chronic September 20, [...] Coronary artery disease inactive J [facility] 2024 7:54am Chronic kidney disease, stage 3 [...] chronic Ju ly 2024 10:53am Hyperlipidemia chronic Gloria 23rd, 2025 10:53am Obesity chronic November 22 10:53am Shortness [...] 2024 2:01am History of acute inferior wall AR inactive December 03, 2024 2:01am Shortness of [...] December 12, 10:14am Shortness of breath chronic Augus t 2024 10:14am Type 2 diabetes mellitus without complications chronic December 10:14am Chest pain resolved December 12 10:14am Chronic kidney disease, stage 3 deleted December 12 10:14am Central sleep apnea acute Augus t 2024 2:35pm Chest pain acute December 15, 2:35pm Pericardial effusion acute Decu st 2024 2:35pm Angina pectoris chronic December 152024 2:35pm CKD (chronic kidney disease) stage 4, GFR 15-29 ml/min chronic December 15, 2024 2:35pm Diastolic heart failure chronic A [facility] 2024 2:35pm Essential hypertension chronic [facility] 2024 2:35pm History of percutaneous transluminal coronary angioplasty August 18, 2018 chronic December 15 2:35pm Obstructive sleep apnea chronic A [facility] 2024 2:35pm Type 2 diabetes mellitus without complications chronic December 2:35pm [facility] Work Phone: 1(748) 825-305505-21-2025 Evaluation note* Diagnosis Onset Date Resolution Status Admit Date COPD (chronic obstructive pulmonary disease) inactive September 20 10:13am Diastolic heart failure inactive [facility] 2024 10:13am Obesity inactive September 20, 2024 10:13am Obstructive sleep apnea inactive [facility] 2024 10:13am Chest pain resolved October 25 7:54am Bilateral lower extremity edema inactive October 25, 2024 7:54am Coronary artery disease inactive J une 25th, 2025 7:54am Essential hypertension inactive Ju ne 25th, 2025 7:54am Hyperlipidemia inactive October 25, 2024 7:54am [...] October 31 10:00am Diastolic heart failure inactive [facility] 2024 10:00am Obesity inactive October 31, 2024 10:00am Obstructive sleep apnea inactive [facility] 2024 10:00am Chest pain resolved November 22 10:53am Bilateral lower extremity edema inactive November 22, 2024 10:53am Essential hypertension inactive [facility] 2024 10:53am Hyperlipidemia inactive November 22, [...] inactive October 4:58pm Chronic kidney disease inactive [facility] 2024 4:58pm Coronary artery disease inactive J [facility] 2024 4:58pm Diabetes mellitus inactive November 302024 4:58pm Dyslipidemia inactive November 30 2 025 4:58pm Essential hypertension inactive [facility] 2024 4:58pm Chronic kidney disease, stage [...] 2024 2:01am Coronary artery disease inactive A [facility] 2024 2:01am Diabetes mellitus inactive December 03, 2024 2:01am Dyslipidemia inactive December 03, 2024 2:01am History of acute inferior wall AR inactive December 03, 2024 2:01am Hyperlipidemia inactive December 2:01am Obesity inactive December 03 2:01am Obesity (BMI 30-39.9) inactive Dec 2024 2:01am Obstructive sleep apnea inactive [facility] 2024 2:01am DEAN (dyspnea on [...] inactive December 10:14am Obesity inactive December 12 025 10:14am Presence of stent in coronary artery Aug, 2022 inactive December 12 10:14am Shortness of breath inactive 2024 10:14am Type 2 diabetes mellitus without complications inactive December 10:14am Chronic kidney disease, stage 3 deleted December 12 10:14am Angina pectoris inactive December 152024 2:35pm Central sleep apnea inactive Dec 2024 2:35pm Chest pain inactive December 15, 2 025 2:35pm CKD (chronic kidney disease) stage 4, GFR 15-29 ml/min inactive December 15, 2024 2:35pm Diastolic heart failure inactive A [facility] 2024 2:35pm Essential hypertension inactive Au [facility] 2024 2:35pm History of percutaneous transluminal coronary angioplasty August 18, 2018 inactive December 15 2:35pm Obstructive sleep apnea inactive A [facility] 2024 2:35pm Pericardial effusion inactive Augu [facility] 2024 2:35pm Type 2 diabetes mellitus without complications inactive December 2:35pm BRBPR (bright red blood per rectum) acute December 24 1:59am Coronary artery disease acute A ug2024 1:59am Diverticulosis acute December 1:59am GI (gastrointestinal bleed) acute December 24, 2024 1:59am CHF (congestive heart failure) inactive December 24 1:59am COPD (chronic obstructive pulmonary disease) inactive December 24, 2024 1:59am Hyperlipidemia inactive December 1:59am Obesity inactive December 24, 1:59am [facility] Work Phone: 1(353) 773-640805-21-2025 Evaluation note* Diagnosis Onset Date Resolution Status Admit Date COPD (chronic obstructive pulmonary disease) inactive September 20 10:13am Diastolic heart failure inactive [facility] 2024 10:13am Obesity inactive September 20, 2024 10:13am Obstructive sleep apnea inactive [facility] 2024 10:13am Chest pain resolved October 25 7:54am Bilateral lower extremity edema inactive October 25, 2024 7:54am Coronary artery disease inactive [facility] 2024 7:54am Essential hypertension inactive [facility] 2024 7:54am Hyperlipidemia inactive October 25, 2024 [...] October 31 10:00am Diastolic heart failure inactive [facility] 2024 10:00am Obesity inactive October 31, 2024 10:00am Obstructive sleep apnea inactive J [facility] 2024 10:00am Chest pain resolved November 22 [...] October 4:58pm Chronic kidney disease inactive Ju 2024 4:58pm Coronary artery disease inactive J shannon 2024 4:58pm Diabetes mellitus inactive November 302024 4:58pm Dyslipidemia inactive November 30, 2 025 4:58pm Essential hypertension inactive [facility] 2024 4:58pm Chronic kidney disease, stage [...] Chronic kidney disease inactive Au 2024 2:01am CKD (chronic kidney disease) stage 4, GFR 15-29 ml/min inactive December 03, 2024 2:01am Coronary artery disease inactive A 2024 2:01am Diabetes mellitus inactive December 03, 2024 2:01am Dyslipidemia inactive December 03, 2024 2:01am History of acute inferior wall AR inactive December 03, 2024 2:01am Hyperlipidemia inactive December 2:01am Obesity inactive December 03 2:01am Obesity (BMI 30-39.9) inactive Dec 2:01am Obstructive sleep apnea inactive A [facility] 2024 2:01am DEAN (dyspnea on exertion) resolved December 07, 2024 4:24pm Chest pain inactive December 07 4:24pm Recent ST elevation myocardial infarction (STEMI) inactive December 07, 2024 4:24pm Shortness of breath inactive [facility] 2024 4:24pm Chest pain resolved December 12, 025 10:14am Bilateral lower extremity edema inactive December 12 10:14am Essential hypertension inactive [facility] 2024 10:14am Hyperlipidemia inactive December 10:14am Obesity inactive December 12, 025 10:14am Presence of stent in coronary artery Aug, 2022 inactive December 12 10:14am Shortness of breath inactive [facility] 2024 10:14am Type 2 diabetes mellitus without complications inactive December 10:14am Chronic kidney disease, stage 3 deleted December 12 10:14am Angina pectoris inactive December 152024 2:35pm Central sleep apnea inactive [facility] 2024 2:35pm Chest pain inactive December 15, 2 025 2:35pm CKD (chronic kidney disease) stage 4, GFR 15-29 ml/min inactive December 15, 2024 2:35pm Diastolic heart failure inactive A [facility] 2024 2:35pm Essential hypertension inactive [facility] 2024 2:35pm History of percutaneous transluminal coronary angioplasty August 18, 2018 inactive December 15 2:35pm Obstructive sleep apnea inactive A [facility] 2024 2:35pm Pericardial effusion inactive [facility] 2024 2:35pm Type 2 diabetes mellitus without complications inactive December 2:35pm Coronary artery disease acute [facility] 2024 1:59am Diverticulosis acute December 1:59am GI (gastrointestinal bleed) acute December 24, 2024 1:59am BRBPR (bright red blood per rectum) inactive December 24 1:59am CHF (congestive heart failure) inactive December 24 1:59am COPD (chronic obstructive pulmonary disease) inactive December 24, 2024 1:59am Hyperlipidemia inactive December 1:59am Obesity inactive December 24, 2 025 1:59am [facility] Work Phone: 1(517) 477-994203-18-2025 Procedure notey [facility] Pulmonary Services/Neurology [address] [place] [address] MR#: [id number] Acct: [id number] Name: GERRY RICO Rep #:[id number] : 1945 78 From: Zen East DO Referring Dr: Marni Horn FLAG MAKER FLAG MAKER-C Status: REG CLI Location: PSN Date: Sex: M C PSN 6 Minute Walk Test 6 Minute Walk Test 6 Minute Walk Test: 6 Minute Walk Test PSN:6-Minute Walk Test Start: 07/18/24 06:38 Freq: Status: Active Protocol: RESP.6MINW Document 07/18/24 06:00 AMH (Rec: 07/18/24 06:47 [facility] [id number]) 6 Minute Walk Test Date Performed 07/18/24 Time Performed 06:00 Height 5 ft 9 in Weight: 230 lb Weight in Pounds 230.[address]: Marni Horn FLAG MAKER Assistive device Cane used: Pre-test Oxygen Delivery [...] Date Dictated: 07/18/24 1032 Date Transcribed: 07/18/241031 Senior Risk Analyst: Dr. 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 October 25, 2024 7:54am Coronary artery disease chronic J 2024 7:54am Essential hypertension chronic Ju 2024 7:54am Hyperlipidemia chronic October 25, 2024 7:54am Obesity chronic October 25 7:54am Type 2 diabetes mellitus wit hout complications chronic October 25, 2024 7:54am Chest pain inactive October 25 7:54am [facility] Work Phone: 1(105) 212-970203-03-2025 Evaluation note* Diagnosis Onset Date Resolution Status [...] 25, 2024 7:54am Bilateral lower extremity edema 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 October 25, 2024 7:54am Chest pain chronic October 25 7:54am Chronic kidney disease, stage 3 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 October 25, 2024 7:54am Coronary artery disease chronic J une 2024 7:54am Essential hypertension chronic Ju ne 2024 7:54am Hyperlipidemia chronic October 25, 2024 7:54am Obesity chronic October 25 7:54am Type 2 diabetes mellitus wit hout complications chronic October 25, 2024 7:54am [facility] Work Phone: 1(130) 359-238103-03-2025 Evaluation note* Diagnosis Onset Date Resolution Status [...] 25, 2024 7:54am Bilateral lower extremity edema 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 October 25, 2024 7:54am Chest pain chronic October 25 7:54am Chronic kidney disease, stage 3 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 October 25, 2024 7:54am Coronary artery [...] sleep apnea chronic J shannon 2024 10:00am [facility] Work Phone: 1(273) 367-562503-03-2025 Evaluation note* Diagnosis Onset Date Resolution Status [...] 25, 2024 7:54am Bilateral lower extremity edema 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 October 25, 2024 7:54am Chest pain chronic October 25 7:54am Chronic kidney disease, stage 3 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 October 25, 2024 7:54am Coronary artery [...] 2024 10:00am [facility] Work Phone: 1([phone]) 947-115612-16-2024 Evaluation note* Diagnosis Onset Date Resolution Status Admit Date DEAN (dyspnea on exertion) acute April 17, 2024 3:51pm Bilateral lower extremity edema 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 April 17, 2024 3:51pm Chronic kidney disease, stage 3 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 April 17, 2024 3:51pm Coronary artery [...] 2024 1:10pm [facility] Work Phone: 1(402) 265-238911-18-2024 Evaluation note* Diagnosis Onset Date Resolution Status Admit Date Bilateral lower extremity edema 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 March 20, 2024 10:31am Chronic kidney disease, stage 3 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 March 20, 2024 10:31am Coronary artery disease chronic N ovember 2023 10:31am Essential hypertension chronic No vember 2023 10:31am Hyperlipidemia chronic March 032023 10:31am Obesity chronic March 20, 2024 10:31am Type 2 diabetes mellitus without complications chronic March 032023 10:31am DEAN (dyspnea on exertion) acute April 17, 2024 3:51pm Bilateral lower extremity edema 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 Hay [facility] September 01, 2022 9:55am Note Date/Time September 01, 2022 8:37am [facility] Medical Records Department [address] [place] [address] Instructions for Home/Discharge Instructions 09/01/22 0835 MR#: [id number] Acct: [id number] Name: GERRY RICO Rep #:[id number] : [...] ~ Signed [facility] Work Phone: 1(933) 197-171408-26-2021 Miscellaneous Notes* Assessment & Plan Note - [...] with any necessary intervention. documented in this [id number] History of Present illness Narrative* Eladio Ingram [...] Size: Adult) Pulse (Abnormal) 59 Height 5' 9" Weight 103.4 kg (228 lb) Oxygen Saturation [...] patient is not nervous/anxious. documented in this [id number] Miscellaneous Notes* Assessment & Plan Note - Sagar Acuña CNP - 10/09/2020 11:44 AM EDT Associated Problem(s): Coronary artery disease involving karuk coronary artery of karuk heart without angina pectoris Multiple previous cardiac catheterizations with intervention. Most recent cardiac caths were performed in 2018, August 03 at [place], and August 18 at [facility] in [place]. 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 The notes from the cath at [facility] indicate that they were able to get a wire across the the lesion and the circumflex was dilated. The note states "If symptoms recur can consider double layer of stent in the anomalous LCx." Gerry continues to take ASA, Plavix, high dose.high potency statin, Imdur (states Ranexa was previously ineffective), Lopressor, Aldactone. Gerry feels that a cardiac cath would be helpful since his symptoms of fatigue, chest pressure, anddyspnea on exertion seem "the same as before my other heart caths". Lexiscan stress 08/2020 demonstrated isolated PVC during [...] of 121 mg/dl. He reports that he "frequently" has hypoglycemia and is drinking quite abit [...] intolerance, and chest pressure. documented in this [id number] History of Present illness Narrative* Sagar Acuña CNP - 10/09/2020 11:19 AM EDT [facility] [place] [facility] [address] [id number] Assessment & Plan: Hypertension Blood pressure mildly [...] of 121 mg/dl. He reports that he "frequently" has hypoglycemia and is drinking quite abit [...] without CPAP use. Coronary artery disease involving karuk coronary artery of karuk heart without angina pectoris Multiple previous cardiac catheterizations with intervention. Most recent cardiac caths were performed in 2018, August 03 at [place], and August 18 at [facility] in [place]. 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 The notes from the cath at [facility] indicate that they were able to get a wire across the the lesion and the circumflex was dilated. The note states "If symptoms recur can consider double layer of stent in the anomalous LCx." Gerry continues to take ASA, Plavix, high dose.high potency statin, Imdur (states Ranexa was previously ineffective), Lopressor, Aldactone. Gerry feels that a cardiac cath would be helpful since his symptoms of fatigue, chest pressure, anddyspnea on exertion seem "the same as before my other heart caths". Lexiscan stress 08/2020 demonstrated isolated PVC during [...] re-establish care. He has been following at [facility] [place] and [facility] for his cardiology care over the past 4 years. 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 Gerry has long-standing coronary artery disease and his history is primarily obtained through records from [facility]. Gerry is uncertain of many of the [...] Peripheral vascular disease (HCC) Sleep apnea Stroke ([facility]) Testicle swelling Past Surgical History: Procedure Laterality Date CARDIAC CATHETERIZATION N/A 01/04/2015 Left Heart Cath,Stent, EF 60%; Eladio Ingram MD; [facility] APPLICATION ASSISTANT CARDIAC CATHETERIZATION N/A 01/28/2015 Left Heart Cath, EF 60%; Eladio Ingram MD; [facility] APPLICATION ASSISTANT CARDIAC CATHETERIZATION N/A 06/18/2015 Left Heart Cath, Right Upper Extremity Angiogram, EF 60%; Eladio Ingram MD; [facility] APPLICATION ASSISTANT CARDIAC CATHETERIZATION N/A 03/17/2016 Procedure: Left and Right Heart Cath Poss Stent; Surgeon: Eladio Ingram MD; Location: [facility] APPLICATION ASSISTANT; Service: CARDIAC CATHETERIZATION 03/22/2014 EF 60% CARDIAC CATHETERIZATION 06/29/2013 EF 60% CARDIAC CATHETERIZATION 09/08/2012 EF 55% CARDIAC CATHETERIZATION 03/22/2014 EF 60% CARDIAC CATHETERIZATION Right 10/15/2016 Procedure: Left Heart Cath Possible PTCA/Stent; Surgeon: Merritt Arthur MD; Location: [facility] CATHLAB; Service: CHOLECYSTECTOMY CORONARY ANGIOPLASTY [...] ectopy, no acute changes. 50 minutes spent puai-zm-eyoc with patient Follow Up Ordered: Return for [...] patient is not nervous/anxious. documented in this [id number] NotePatient Outreach (COVAMN) GERRY RICO ([id number]) 1945 M Date Time Provider Department 06/25/20 PETRONA TELLES During your visit today, we recorded the following information about you: Allergies As of Date: 06/25/2020 (No Known Allergies) Date Reviewed: 08/19/2018 Reviewed by: Moies (Marcin) MARCIN Mcgraw - Fully Assessed Order(s):SARS-COVID VACCINE 1ST DOSE APPT [79031IGT] Order #: [id number] FUTURE Prescriptions as of 06/25/2020 Sig: CLOPIDOGREL [...] (HCC) [N17.9] 08/15/2018 Coronary artery disease involving karuk smith*08/15/2018 Stented coronary artery [Z95.5] 08/15/2018 Letter Text Encounter Status:Closed by LANDON PRODUSER on 06/28/20[facility] Consult note Author Jose Hay [facility] Note Date/Time November 30, 2024 4:51 pm [facility] Medical Records Department [address] [place] [address] Consultation - Cardiology 11/30/24 1642 MR#: [id number] Acct: [id number] Name: GERRY RICO Rep #:[id number] : [...] infarction. Subsequently a STEMI alert was called. [facility] Medical History (Updated 11/30/24 @ 16:48 by [...] kidney disease, stage 3 Atherosclerotic heart disease karuk coronary artery w/angina pectoris Type 2 diabetes mellitus without complications Hyperlipidemia Obesity Home Medications ?Medication ?Instructions ?Recorded ?Last Taken ?Type aspirin 81 mg tablet,delayed 81 [facility]00 [facility]17 10/11/23 History release maintenance [...] 80.9 H, Lymph % (Auto) 10.1 L, Daw[place] % (Auto) 7.7, Eos % (Auto) 0.4, [...] 80.9 H, Lymph % (Auto) 10.1 L, Dawes % (Auto) 7.7, Eos % (Auto) 0.4, [...] Note Date/Time December 02, 2024 2:2 7pm [facility] Medical Records Department [address] [place] [address] Discharge Summary 12/02/24 1336 MR#: [id number] Acct: [id number] Name: GERRY RICO Rep #:[id number] : 1945 79 From: Nickie Danielson DO PCP: Dr. Marycarmen Rodriguez DO Status:ADM IN Location: [place] [address] Providers Date of Admission: 11/30/24 Date of [...] inferior wall. He was taken emergency to Medical Anthropology Director and cardiac catheterization revealed subacute stent thrombosis [...] 78.9 H, Lymph % (Auto) 7.6 L, Dawes % (Auto) 12.0 H, Eos % (Auto) [...] 2. Age-related senescent changes. Reading Location: [facility] D/C Instructions Discharge Activity: Return [...] Jeffrey at discharge?: Yes Done w/ Acute AR measure.: Yes Documented LVEF (%): 50 Discharge [...] Self Care Charges/Coding Visit Charges Inpatient E&M: 00290 Disch Hosp >30min 12/02/24 1427 <Electronically signed by Nickie Jagjit DO> Cosigner Signature (if applicable): CC: Dr. Jose Hay MD; Dr. Nickie Danielson DO; Dr. 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 [...] his ECF 2. 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 Patient was recently discharged to a penitentiary facility plan is for patient to be [...] Uncertain Cause Additional Instructions / Restrictions: The supervisor process testing wanted to make sure you are taking [...] in before D/C Order can be placed): [facility] 12/08/24 2587 <Electronically signed by Alex Sanon MD> Cosigner Signature (if applicable): CC: Dr. Shaan Santos DO; Dr. Marycarmen Rodriguez DO ~ [facility] Work Phone: Discharge summary Author Marycarmen Marlow [facility] Note Date/Time December 17, 2024 2: 06pm [facility] Medical Records Department [address] [place] [address] Transfer to [facility] MR#: [id number] Acct: [id number] Name: GERRY RICO Rep #:[id number] : [...] multiple medical problems-patient will return to his penitentiary facility when medically stable #9 acute protein [...] [Primary Care Provider] - Gustabo Pérez NP, FLAG MAKER-C [Med Staff - Adv Practice Prof] - See Referral Note (In 3 to 4 weeks) Disposition Disposition (needs filled in before D/C Order can be placed): [facility] (6) Diastolic heart failure Qualifiers: Heart failure chronicity: chronic Qualified Code(s): I50.32 - Chronic diastolic (congestive) heart failure 12/17/24 1406 <Electronically signed by Marycarmen Marlow DO> Cosigner Signature (if applicable): CC: Dr. Marycarmen Rodriguez DO; Dr. Ramonita Herron MD; Dr. Sunil Faye MD ~ [facility] Work Phone: Evaluation note* Diagnosis Shortness of breath- Primary [facility] Diagnosis DEAN (dyspnea on exertion)- Primary Other dyspnea and respiratory abnormality [facility] Diagnosis DEAN (dyspnea on exertion) Other dyspnea and respiratory abnormality Essential hypertension Unspecified essential hypertension Type 2 diabetes mellitus without complication, without long-term current use of insulin ([facility]) MATTHEW (obstructive sleep apnea) Obstructive sleep apnea (adult) (pediatric) Coronary artery disease involving karuk coronary artery of karuk heart without angina pectoris [facility] Diagnosis Shortness of breath [facility] Diagnosis Essential hypertension- Primary Unspecified essential hypertension 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, unspecified whether karuk or transplanted heart (HCC) Mixed hyper[facility] Chest pain, unspecified type- Primary [facility] Diagnosis 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)- Primary [facility]* Diagnosis Onset Date Resolution Status Dizziness acute Atherosclerotic heart diseas e karuk coronary artery w/angina pectoris chronic CHF (congestive heart failure) chronic Essential hypertension chron ic History of coronary artery stent placement August 13, 2017 chronic Hyperlipidemia [facility] Work Phone: Evaluation note* Diagnosis Onset Date Resolution Status Dizziness acute Atherosclerotic heart diseas e karuk coronary artery w/angina pectoris chronic CHF (congestive heart failure) chronic Essential hypertension chron ic History of coronary artery stent placement August 13, 2017 chronic Hyperlipidemia chronic Dizziness acute DEAN (dyspnea on exertion) [place] Palpitations acute CAD (coronary artery disease) chronic CHF (congestive heart failure) chronic Essential hypertension chron ic Hyperlipidemia [facility] Work Phone: evaluation note* Diagnosis Onset Date Resolution Status Dizziness acute Atherosclerotic heart diseas e karuk coronary artery w/angina pectoris chronic CHF (congestive heart failure) chronic Essential hypertension chron ic History of coronary artery stent placement August 13, 2017 chronic Hyperlipidemia chronic Dizziness acute DEAN (dyspnea on exertion) [place] Palpitations acute CAD (coronary artery disease) chronic CHF (congestive heart failure) chronic Essential hypertension chron ic Hyperlipidemia chronic DEAN (dyspnea on exertion) [place] CAD (coronary artery disease) chronic CHF (congestive heart failure) chronic Essential hypertension chron ic Hyperlipidemia [facility] Work Phone: Evaluation note* Diagnosis Onset Date Resolution Status Dizziness acute DEAN (dyspnea on exertion) [place] Palpitations acute CAD (coronary artery disease) chronic CHF (congestive heart failure) chronic Essential hypertension chron ic Hyperlipidemia chronic DEAN (dyspnea on exertion) [place] CAD (coronary artery disease) chronic CHF (congestive heart failure) chronic Essential hypertension chron ic Hyperlipidemia [facility] Work Phone: Evaluation note* Diagnosis Onset Date Resolution Status Abnormal PFT acute 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.9) 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 Obstructive sleep apnea 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 COVID-19 acute DEAN (dyspnea on exertion) [place] Atherosclerotic heart diseas e karuk coronary artery w/angina pectoris chronic CHF (congestive heart failure) chronic Essential hypertension chron ic History of coronary artery stent placement August 13, 2017 chronic Hyperlipidemia chronic Abnormal PFT acute COVID-19 acute 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.9) 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 Obstructive sleep apnea 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 [facility] Work Phone: Evaluation note* Diagnosis Onset Date Resolution Status COVID-19 acute DEAN (dyspnea on exertion) [place] Atherosclerotic heart diseas e karuk coronary artery w/angina pectoris chronic CHF (congestive heart failure) chronic Essential hypertension chron ic History of coronary artery stent placement August 13, 2017 chronic Hyperlipidemia chronic Abnormal PFT acute COVID-19 acute 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.9) 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 Obstructive sleep apnea 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 [facility] Work Phone: Evaluation note* Diagnosis Onset Date Resolution Status Angina pectoris chronic Chronic kidney disease chron ic Coronary artery disease 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 Diabetes mellitus chronic Dyslipidemia chronic Essential hypertension chron ic Obesity chronic [facility] Work Phone: Evaluation note* Diagnosis Onset Date Resolution Status Angina pectoris chronic Chronic kidney disease chron ic Coronary artery disease 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 Diabetes mellitus chronic Dyslipidemia chronic Essential hypertension chron ic Obesity chronic Left-sided weakness acute Chest pain resolved Fatigue acute Syncope acute Coronary artery disease 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 Dyslipidemia chronic Essential hypertension chron ic [facility] Work Phone: Evaluation note* Diagnosis Onset Date Resolution Status Left-sided weakness acute Chest pain resolved Fatigue acute Syncope acute Coronary artery disease 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 Dyslipidemia chronic Essential hypertension chron ic Angina pectoris chronic Bilateral lower extremity edema chronic Chronic kidney disease, stage 3 chronic Coronary artery disease 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 Essential hypertension chron ic Hyperlipidemia chronic Type 2 diabetes mellitus without complications [facility] Work Phone: Evaluation noteNo assessment information available [facility] Work Phone: History and physical note Author Shaan Santos [facility] Note Date/Time December 07, 2024 4:4 8pm [facility] Medical Records Department [facility] [place] [address] [place] [address] H&P Exam - Hospitalist 12/07/24 1633 MR#: [id number] Acct: [id number] Name: GERRY RICO Rep #:[id number] : 1945 79 From: Shaan Santos DO PCP: Dr. Marycarmen Rodriguez, DO Status:ADM EDMUND Location: [place] [address] HPI - General General Date of Service: [...] currently on room air and breathing comfortably. [facility] Medical History Anxiety Depression Diabetes Kidney disease [...] attack) Obstructive sleep apnea Atherosclerotic heart disease karuk coronary artery w/angina pectoris Type 2 diabetes [...] History household members: spouse and none housing: detention Smoking Status: Former smoker quit date: 05/03/98 [...] 79.0 H, Lymph % (Auto) 7.9 L, Dawes % (Auto) 11.5 H, Eos % (Auto) [...] IMPRESSION: No acute cardiopulmonary process Reading Location: [id number] Assessment & Plan Assessment/Plan (1) Shortness of [...] at bedside. Charges/Coding Visit Charges Inpatient E&M: 52144 Init Hosp 12/07/24 1648 <Electronically signed by Shaan Sanots DO> Cosigner Signature (if applicable): CC: Dr. Shaan Santos, ; Dr. Marycarmen Rodriguez DO~ Signed [facility] Work Phone: Hospital course Narrative No data available for this section [facility] Hospital Discharge instructionsAmbulatory Orders* Phase II, Outpatient Cardiac Rehab Location: None [facility] Work Phone: Hospital Discharge instructionsAdditional Instructions The supervisor process testing wanted to make sure you are taking isosorbide, spironolactone, Lasix and Jardiance. Follow-up with the cardiology office.[facility] Work Phone: Progress note Author Dr. Hay [facility] September 01, 2022 9:53am Note Date/Time September 01, 2022 9:51am [facility] Medical Records Department [address] [place] [address] Progress Note 09/01/22 0950 MR#: [id number] Acct: [id number] Name: RADHAGERRY Rep #:[id number] : 1945 77 From: Jose Hay MD PCP: Dr. Marycarmen Rodriguez, DO Status:ADM EDMUND Location: [place] [address] Progress Note Reports complete resolution of angina. [...] for referral (narrative)No reason for referral information availableWWyandot Memorial Hospital Work Phone: Assessments Diagnosis MATTHEW (obstructive sleep apnea ) - Primary Obstructive sleep apnea (adult) (pediatric) Coronary artery disease invo lving karuk coronary artery of kar[place] heart without angina pectoris Summary Purpose Family [...] FoundDocuments on File Type Date Recorded Patient Information Services Manager Expl anation Advance Directives and Living [...] Documents on File Type Date Recorded Patient Information Services Manager Expl anation Advance Directives and Livin g Will 10/04/2020 12:00 AM Documents on File Type Date Recorded Patient Information Services Manager Expl anation Advance Directives and Living [...] Documents on File Type Date Recorded Patient Information Services Manager Expl anation Advance Directives and Livin g Will 10/15/2020 12:46 PM Documents on File Type Date Recorded Patient Information Services Manager Expl anation Advance Directives and Livin g Will 10/15/2020 12:46 PM Documents on File Type Date Recorded Patient Information Services Manager Expl anation Advance Directives and Livin [...] Will Yes June 10 4:44pm Power of Batch Heat Treat Operator Yes June 10, 2021 4:44pm Advance Directive Response Recorded Date/ Time Name of Medical Power of Batch Heat Treat Operator Jennie- November 16, 2021 1:06pm Advance Directives No August 13 018 7:02am Living Will Yes November 16, 2021 1:06pm Power of Batch Heat Treat Operator Yes November 16 1:06pm Advance Directive Response Recorded Date/ Time Advance Directives No August 13, 018 6:02am Living Will Yes Gloria 17th, 2022 12:06pm Power of Batch Heat Treat Operator Yes November 16 12:06pm Advance Directive Response Recorded Date/ Time Advance Directives No August 13, 2 018 7:02am Living Will Yes November 16, 2021 1:06pm Power of Batch Heat Treat Operator Yes November 16 1:06pm Advance Directive Response Recorded Date/ Time Advance Directives on File Yes August 312022 7:47am Name of Medical Power of Batch Heat Treat Operator Ashok escalera August 31, 2022 7:47am Advance Directives Yes August 31, 2022 7:47am Living Will Yes August 31, 2022 7: 47am Power of Batch Heat Treat Operator Yes August 31, 2022 7:47am Advance Directive Response Recorded Date/ Time Advance Directives on File Yes August 312022 7:47am Name of Medical Power of Batch Heat Treat Operator Ashok escalera August 31, 2022 7:47am Advance Directives Yes August 31, 2022 7:47am Living Will No September 18, 2022 1 2:11am Power of Batch Heat Treat Operator No September 18, 2022 12:11am Advance Directive Response Recorded Date/ Time Advance Directives on File Yes August 312022 7:47am Name of Medical Power of Batch Heat Treat Operator Ashok escalera August 31, 2022 7:47am Advance Directives on File No Augus t 2022 7:51am Name of Medical Power of Batch Heat Treat Operator ASHOK RICO December 21, 2022 7:51am Advance Directives Yes December 21, 2022 7:51am Living Will Yes December 21 7:51am Power of Batch Heat Treat Operator Yes December 21 023 7:51am Advance Directive Response Recorded Date/ Time Advance Directives on File No Augus t 2022 7:51am Name of Medical Power of Batch Heat Treat Operator ASHOK RICO December 21, 2022 7:51am Advance Directives Yes December 21, 2022 7:51am Living Will Yes December 21 7:51am Power of Batch Heat Treat Operator Yes December 21 023 7:51am Advance Directive Response Recorded Date/ Time Advance Directives Yes December 21, 2022 6:51am Living Will Yes December 21 6:51am Power of Batch Heat Treat Operator Yes December 21 023 6:51am Advance Directive Response Recorded Date/ Time Living Will No October 12, 2023 6:54pm Power of Batch Heat Treat Operator No October 11 6:54pm Advance Directives Yes December 21, 2022 7:51am Advance Directive Response Recorded Date/ Time Advance Directives Yes December 21, 2022 7:51am Advance Directive Response Recorded Date/ Time Do you have a Healthcare Power of Batch Heat Treat Operator? Yes November 26, 2024 5:44pm Advance Directives Yes December 21, 2022 7:51am Advance Directive Response Recorded Date/ Time Advance Directives on File Yes November 27, 2024 8:44am Living Will Yes November 27, 2024 8:44am Do you have a Healthcare Pow er of Batch Heat Treat Operator? Yes November 27, 2024 8:44am Name of Medical Power of Batch Heat Treat Operator Jennie Popeag er- spouse November 27, 2024 8:44am Advance Directives Yes November 27 8:44am Do you have a Healthcare Pow er of Batch Heat Treat Operator? Yes November 26, 2024 5:44pm Advance Directive Response Recorded Date/ Time Advance Directives on File Yes November 27, 2024 8:44am Living Will Yes November 27, 2024 8:44am Do you have a Healthcare Pow er of Batch Heat Treat Operator? Yes November 27, 2024 8:44am Name of Medical Power of Batch Heat Treat Operator Jennie Popeag er- spouse November 27, 2024 8:44am Advance Directives Yes November 27 8:44am Do you have a Healthcare Pow er of Batch Heat Treat Operator? Yes November 26, 2024 5:44pm Do you have a Healthcare Pow er of Batch Heat Treat Operator? Yes November 30, 2024 5:22pm Advance Directive Response Recorded Date/ Time Advance Directives on File Yes November 27, 2024 8:44am Living Will Yes November 27, 2024 8:44am Do you have a Healthcare Pow er of Batch Heat Treat Operator? Yes November 27, 2024 8:44am Name of Medical Power of Batch Heat Treat Operator Jennie Popeag er- spouse November 27, 2024 8:44am Advance Directives Yes November 27 8:44am Do you have a Healthcare Pow er of Batch Heat Treat Operator? Yes November 26, 2024 5:44pm Do you have a Healthcare Pow er of Batch Heat Treat Operator? Yes November 30, 2024 5:22pm Do you have a Healthcare Pow er of Batch Heat Treat Operator? Yes December 02, 2024 8:23pm Advance Directive Response Recorded Date/ Time Advance Directives on File Yes November 27, 2024 8:44am Living Will Yes November 27, 2024 8:44am Do you have a Healthcare Pow er of Batch Heat Treat Operator? Yes November 27, 2024 8:44am Name of Medical Power of Batch Heat Treat Operator Jennie Agarwal er- spouse November 27, 2024 8:44am Advance Directives Yes November 27 8:44am Do you have a Healthcare Pow er of Batch Heat Treat Operator? Yes November 26, 2024 5:44pm Do you have a Healthcare Pow er of Batch Heat Treat Operator? Yes November 30, 2024 5:22pm Do you have a Healthcare Pow er of Batch Heat Treat Operator? Yes December 02, 2024 9:54pm Advance Directive Response Recorded Date/ Time Advance Directives on File Yes November 27, 2024 8:44am Living Will Yes November 27, 2024 8:44am Do you have a Healthcare Pow er of Batch Heat Treat Operator? Yes November 27, 2024 8:44am Name of Medical Power of Batch Heat Treat Operator Jennie Agarwal er- spouse November 27, 2024 8:44am Advance Directives Yes November 27 8:44am Do you have a Healthcare Pow er of Batch Heat Treat Operator? Yes November 26, 2024 5:44pm Do you have a Healthcare Pow er of Batch Heat Treat Operator? Yes November 30, 2024 5:22pm Do you have a Healthcare Pow er of Batch Heat Treat Operator? Yes December 02, 2024 9:54pm Do you have a Healthcare Pow er of Batch Heat Treat Operator? Yes December 07, 2024 11:09am Advance Directive Response Recorded Date/ Time Advance Directives on File Yes November 27, 2024 8:44am Living Will Yes November 27, 2024 8:44am Do you have a Healthcare Pow er of Batch Heat Treat Operator? Yes November 27, 2024 8:44am Name of Medical Power of Batch Heat Treat Operator Jennie Agarwal er- spouse November 27, 2024 8:44am Advance Directives Yes November 27 8:44am Do you have a Healthcare Pow er of Batch Heat Treat Operator? Yes November 26, 2024 5:44pm Do you have a Healthcare Pow er of Batch Heat Treat Operator? Yes November 30, 2024 5:22pm Do you have a Healthcare Pow er of Batch Heat Treat Operator? Yes December 02, 2024 9:54pm Do you have a Healthcare Pow er of Batch Heat Treat Operator? Yes December 07, 2024 5:33pm Advance Directive Response Recorded Date/ Time Advance Directives on File Yes November 27, 2024 8:44am Living Will Yes November 27, 2024 8:44am Do you have a Healthcare Pow er of Batch Heat Treat Operator? Yes November 27, 2024 8:44am Name of Medical Power of Batch Heat Treat Operator Jennie Agarwal er- spouse November 27, 2024 8:44am Advance Directives Yes November 27 8:44am Do you have a Healthcare Pow er of Batch Heat Treat Operator? Yes December 15, 2024 3:01pm Do you have a Healthcare Pow er of Batch Heat Treat Operator? Yes November 26, 2024 5:44pm Do you have a Healthcare Pow er of Batch Heat Treat Operator? Yes November 30, 2024 5:22pm Do you have a Healthcare Pow er of Batch Heat Treat Operator? Yes December 02, 2024 9:54pm Do you have a Healthcare Pow er of Batch Heat Treat Operator? Yes December 07, 2024 5:33pm Advance Directive Response Recorded Date/ Time Advance Directives on File Yes November 27, 2024 8:44am Living Will Yes November 27, 2024 8:44am Do you have a Healthcare Pow er of Batch Heat Treat Operator? Yes November 27, 2024 8:44am Name of Medical Power of Batch Heat Treat Operator Jennie Agarwal er- spouse November 27, 2024 8:44am Advance Directives Yes November 27 8:44am Do you have a Healthcare Pow er of Batch Heat Treat Operator? Yes December 15, 2024 3:01pm Do you have a Healthcare Pow er of Batch Heat Treat Operator? Yes December 20, 2024 11:46am Do you have a Healthcare Pow er of Batch Heat Treat Operator? Yes November 26, 2024 5:44pm Do you have a Healthcare Pow er of Batch Heat Treat Operator? Yes November 30, 2024 5:22pm Do you have a Healthcare Pow er of Batch Heat Treat Operator? Yes December 02, 2024 9:54pm Do you have a Healthcare Pow er of Batch Heat Treat Operator? Yes December 07, 2024 5:33pm Do you have a Healthcare Pow er of Batch Heat Treat Operator? Yes December 24, 2024 2:54am Advance Directive Response Recorded Date/ Time Advance Directives on File Yes November 27, 2024 8:44am Living Will Yes November 27, 2024 8:44am Do you have a Healthcare Pow er of Batch Heat Treat Operator? Yes November 27, 2024 8:44am Name of Medical Power of Batch Heat Treat Operator Jennie Agarwal er- spouse November 27, 2024 8:44am Advance Directives Yes November 27 8:44am Do you have a Healthcare Pow er of Batch Heat Treat Operator? Yes December 15, 2024 3:01pm Do you have a Healthcare Pow er of Batch Heat Treat Operator? Yes December 20, 2024 11:46am Do you have a Healthcare Pow er of Batch Heat Treat Operator? Yes November 26, 2024 5:44pm Do you have a Healthcare Pow er of Batch Heat Treat Operator? Yes November 30, 2024 5:22pm Do you have a Healthcare Pow er of Batch Heat Treat Operator? Yes December 02, 2024 9:54pm Do you have a Healthcare Pow er of Batch Heat Treat Operator? Yes December 07, 2024 5:33pm Do you have a Healthcare Pow er of Batch Heat Treat Operator? Yes December 24, 2024 2:54am Do you have a Healthcare Pow er of Batch Heat Treat Operator? No January 01, 2025 8:56am Reason for Referral Status Reason Specialty Diagnoses / Procedures Referred By Contact Referred To Contact New Request Cardiology Diagnoses Shortness of breath Procedures Echocardiogram complete Eladio Ingram MD [address] [facility] [address] [place] [address] Status Reason Specialty Diagnoses / Procedures Referred By Contact Referred To Contact Closed Cardiology Diagnoses DEAN (dyspnea on exertion) Procedures ECG 12 lead Sagar Acuña, QUALITY ASSURANCE NURSE [address] [place] [address] Specialty Diagnoses / Procedures Referred By Contac t Referred To Contact Radiology Diagnoses 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 CHF (congestive heart failure) Essential hypertension History of coronary artery stent placement Hyperlipidemia Dizziness DEAN (dyspnea on exertion) Palpitations CAD (coronary artery disease) CHF (congestive heart failure) Essential hypertension Hyperlipidemia Chief Complaint OVERDUE FOR OV CHEST PAIN CHEST PAIN 6-8 WK F/U DYSPNEA Reason for Visit Dizziness Atherosclerotic heart disease kar[place] coronary artery w/angina pectoris CHF (congestive heart failure) Essential hypertension History of coronary artery stent placement Hyperlipidemia Dizziness DEAN (dyspnea on exertion) Palpitations CAD (coronary artery disease) CHF (congestive heart failure) Essential hypertension Hyperlipidemia Chief Complaint OVERDUE FOR OV CHEST PAIN CHEST PAIN 6-8 WK F/U DYSPNEA CHEST PAIN 2 M FU E ORDERS Reason for Visit Dizziness Atherosclerotic heart disease kar[place] coronary artery w/angina pectoris CHF (congestive heart [...] DEAN (dyspnea on exertion) Atherosclerotic heart disease kar[place] coronary artery w/angina pectoris CHF (congestive heart failure) Essential hypertension History of coronary artery stent placement Hyperlipidemia Abnormal PFT COVID-19 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.9) Obstructive sleep apnea Chief Complaint SORE THROAT, COUGH, FEVER, BODY ACHE 5 MO F/U 3 M FU DYSPNEA/SOB Reason for Visit COVID-19 DEAN (dyspnea on exertion) 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 Reason for Visit Angina pectoris Chronic kidney disease Coronary artery disease Diabetes mellitus Dyslipidemia Essential hypertension Obesity Left-sided weakness Chest pain Fatigue Syncope Coronary artery disease Dyslipidemia Essential hypertension Chief Complaint CAD Amb Documentation EKG Coronary artery disease Amb Documentation CVA, CP CVA, CP CP ADMIT CVA, CP CVA, CP CVA, CP CVA, CP request by FLAG MAKER at [facility] SYNCOPE 2 M [...] CP CVA, CP CVA, CP request by FLAG MAKER at [facility] SYNC[facility] 2 M [...] FU April 17, 2024 3:51pm F/U per G July 03, 2024 1:10 [...] heart failure July 03, 2024 1:10pm Obesity March 3rd, 2025 1:10 pm Obstructive sleep apnea July 03, [...] of breath October 25, 2024 7:54 am MATTEHW October 26, 2024 11:0 0am 4wfu October [...] 03 2:01am History of acute inferior wall AR December 03, 2024 2:01am Hyponatremia December 03, [...] 03 2:01am History of acute inferior wall AR December 03, 2024 2:01am Hyponatremia December 03, [...] 03 2:01am History of acute inferior wall AR December 03, 2024 2:01am Hyponatremia December 03, [...] 2:0 1am History of acute inferior wall AR December 03, 2024 2:01am DEAN (dyspnea on [...] 2:0 1am History of acute inferior wall AR December 03, 2024 2:01am Shortness of breath [...] 2:0 1am History of acute inferior wall AR December 03, 2024 2:01am Hyperlipidemia December 03, [...] 2:0 1am History of acute inferior wall AR December 03, 2024 2:01am Hyperlipidemia December 03, [...] BRBPR (bright red blood per rectum) Augu 2024 1:59am CHF (congestive heart failure) December [...] section and content) DATE CREATED AUTHOR 09/24/2018 [facility] DATE CREATED AUTHOR AUTHOR'S ORGANIZ ATION 12/20/[address] [facility] DATE CREATED AUTHOR AUTHOR'S ORGANIZ ATION 01/11/2021 [facility] DATE CREATED AUTHOR AUTHOR'S ORGANIZ ATION 02/28/2021 [facility] DATE CREATED AUTHOR AUTHOR'S ORGANIZ ATION 04/20/2021 [facility] DATE CREATED AUTHOR AUTHOR'S ORGANIZ ATION 06/22/2021 [facility] DATE CREATED AUTHOR AUTHOR'S ORGANIZ ATION 01/15/2025 [facility] DATE CREATED AUTHOR AUTHOR'S ORGANIZ ATION 03/08/2025 [facility] Reason for Visit (unrecogniz ed section and content) Reason Comments Chest Pain SOB Status Reason Specialty Diagnoses / Procedures Referred By Contact Referred To Contact Closed Cardiology Diagnoses DEAN (dyspnea on exertion) Procedures ECG 12 lead Sagar Acuña, QUALITY ASSURANCE NURSE [address] [place] [address] Status Reason Specialty Diagnoses / Procedures Referre d By Contact Referred To Contact Closed Cardiology Diagnoses Shortness of breath Procedures Echocardiogram complete w contrast Echocardiogram complete Eladio Ingram MD [address] [place] [address] Reason Comments Initial Visit (Intake) Specialty Diagnoses / Procedures Referred By Contac t Referred To Contact Cardiology Diagnoses 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, unspecified whether karuk or transplanted heart (HCC) Marly Marycarmen Harrison, DO [address] [place] [address] Referral ID Status Reason Start Date Expiration Date V isits Requested Visits Authorized [id number] Closed Specialty Services Required/Krupa ent's Best Interest 10/04/2020 10/04/2021 1 1 Care Teams (unrecognized sec tion and content) Body Shop Manager Relationship Specialty Start Date End Date Marly, Marycarmen Harrison, DO [address] [place] [address] PCP - General Family Medicine 12/17/16 Body Shop Manager Relationship Specialty Start Date End Date Marycarmen Rodriguez, DO [address] [facility] [address] [place], [place] [id number] PCP - General Family Medicine 12/17/16 Body Shop Manager Relationship Specialty Start Date End Date Marycarmen Rodriguez, DO [address] [facility] [address] [place], [place] [id number] PCP - General Family Medicine 12/17/16 Body Shop Manager Relationship Specialty Start Date End Date Marycarmen Rodriguez, DO [address] [facility] [address] [place], [place] [address] PCP - General Family Medicine 12/17/16 Team Status: Active Member Role Status Dates Dr. Marycarmen Rodriguez DO Family Provider Active Marycarmen Rodriguez Primary Care Provider Active Team Status: Inactive Member Role Status Dates Dr. Marycarmen Rodriguez DO Primary Care Provider, Referrin g Provider Active Luz Elena Mckeon FLAG MAKER, FLAG MAKER-C Attending Provider Active Team Status: Inactive Member [...] Primary Care Provider Active Luz Elena Mckeon FLAG MAKER, FLAG MAKER-C Attending Provider Active Team Status: Inactive Member Role Status Dates Dr. Marycarmen Rodriguez DO Primary Care Provider Active Luz Elena Mckeon FLAG MAKER, FLAG MAKER-C Attending Provider, Referring P robrettder Active Team Status: Inactive Member Role Status [...] Active Member Role Status Dates Dr. Marycarmen Marly , DO Primary Care Provider Active Dr. Pardeep [...] Primary Care Provider Active Luz Elena Mckeon FLAG MAKER, FLAG MAKER-C Attending Provider, Referring P rovider Active Team [...] Primary Care Provider Active Luz Elena Mckeon FLAG MAKER, FLAG MAKER-C Attending Provider Active Team Status: Inactive Member [...] 2024 End: April 17, 2024 Gustabo Pérez FLAG MAKER, FLAG MAKER-C Attending Provider Active S tart: April 17, 2024 End: April 17, 2024 Team Status: Inactive Member Role Status Dates Dr. Marycarmen Rodriguez DO Primary Care Provider Active Start: April 17, 2024 End: April 17, 2024 Gustabo Pérez FLAG MAKER, FLAG MAKER-C Attending Provider Active S tart: April 17, 2024 End: April 17, 2024 Gustabo Pérez FLAG MAKER, FLAG MAKER-C Referring Provider Active S tart: April 17, [...] 2024 End: July 03, 2024 Marni Horn FLAG MAKER, FLAG MAKER-C Attending Provider Active Start: July 03, 2024 End: July 03, 2024 Team Status: Active Member Role Status Dates Dr. Marycarmen Rodriguez DO Primary Care Provider Active Start: July 07, 2024 Marni Horn FLAG MAKER, FLAG MAKER-C Attending Provider Active Start: July 07, 2024 Marni Horn FLAG MAKER, FLAG MAKER-C Referring Provider Active Start: July 07, 2024 Team Status: Inactive Member Role Status Dates Dr. Marycarmen Rodriguez DO Primary Care Provider Active Start: July 07, 2024 End: July 07, 2024 Marni Horn FLAG MAKER, FLAG MAKER-C Attending Provider Active Start: July 07, 2024 End: July 07, 2024 Marni Horn FLAG MAKER, FLAG MAKER-C Referring Provider Active Start: July 07, 2024 End: July 07, 2024 Team Status: Active Member Role Status Dates Dr. Marycarmen Rodriguez DO Primary Care Provider Active Start: July 17, 2024 Marni Horn FLAG MAKER, FLAG MAKER-C Attending Provider Active Start: July 17, 2024 Marni Horn FLAG MAKER, FLAG MAKER-C Referring Provider Active Start: July 17, 2024 Team Status: Active Member Role Status Dates Dr. Marycarmen Rodriguez DO Primary Care Provider Active Start: July 18, 2024 Marni Horn FLAG MAKER, FLAG MAKER-C Attending Provider Active Start: July 18, 2024 Marni Horn FLAG MAKER, FLAG MAKER-C Referring Provider Active Start: July 18, 2024 Team Status: Active Member Role Status Dates Dr. Marycarmen Rodriguez DO Primary Care Provider Active Start: July 18, 2024 Marni Horn FLAG MAKER, FLAG MAKER-C Referring Provider Active Start: July 18, 2024 Marni Horn FLAG MAKER, FLAG MAKER-C Other Provider Active Start: July 18, 2024 Dr. Zen East DO Attending Provider Active S tart: July 18, 2024 Team Status: Inactive Member Role Status Dates Dr. Marycarmen Rodriguez DO Primary Care Provider Active Start: July 17, 2024 End: July 17, 2024 Marni Horn FLAG MAKER, FLAG MAKER-C Attending Provider Active Start: July 17, 2024 End: July 17, 2024 Marni Horn FLAG MAKER, FLAG MAKER-C Referring Provider Active Start: July 17, 2024 End: July 17, 2024 Team Status: Inactive Member Role Status Dates Dr. Marycarmen Rodriguez DO Primary Care Provider Active Start: July 18, 2024 End: July 18, 2024 Marni Horn FLAG MAKER, FLAG MAKER-C Attending Provider Active Start: July 18, 2024 End: July 18, 2024 Marni Horn FLAG MAKER, FLAG MAKER-C Referring Provider Active Start: July 18, 2024 End: July 18, 2024 Team Status: Inactive Member Role Status Dates Dr. Marycarmen Rodriguez DO Primary Care Provider Active Start: August 03, 2024 End: August 03, 2024 Marni Horn FLAG MAKER, FLAG MAKER-C Attending Provider Active Start: August 03, 2024 End: August 03, 2024 Marni Horn FLAG MAKER, FLAG MAKER-C Referring Provider Active Start: August 03, 2024 [...] 2024 End: September 20, 2024 Maren Olivas FLAG MAKER-C Attending Provider Active Start: September 20, 2024 End: September 20, 2024 Maren Olivas NP-C Referring Provider Active Start: September 20, 2024 End: September 20, 2024 Team Status: Active Member Role Status Dates Dr. Marycarmen Rodriguez DO Primary Care Provider Active Start: September 22, 2024 Marni Horn FLAG MAKER, FLAG MAKER-C Attending Provider Active Start: September 22, 2024 Team Status: Inactive Member Role Status Dates Dr. Marycarmen Rodriguez DO Primary Care Provider Active Start: September 22, 2024 End: September 22, 2024 Marni Horn FLAG MAKER, FLAG MAKER-C Attending Provider Active Start: September 22, 2024 [...] S tart: July 17, 2024 Marni Horn NP, FLAG MAKER-C Referring Provider Active Start: July 17, 2024 Team Status: Inactive Member Role Status Dates Dr. Marycarmen Rodriguez DO Primary Care Provider Active Start: October 18, 2024 End: October 18, 2024 Dr. Brooks Carpenter MD Attending Provider Active Start: October 18, 2024 End: October 18, 2024 Dr. Brooks Carpenter MD Referring Provider Active Start: October 18, 2024 End: October 18, 2024 Gustabo Pérez FLAG MAKER, FLAG MAKER-C Other Provider Active Start : October 18, 2024 End: October 18, 2024 Team Status: Active Member Role Status Dates Dr. Marycarmen Rodriguez DO Primary Care Provider Active Start: October 18, 2024 Marni Horn FLAG MAKER, FLAG MAKER-C Attending Provider Active Start: October 18, 2024 Team Status: Inactive Member Role Status Dates Dr. Marycarmen Rodriguez DO Primary Care Provider Active Start: October 25, 2024 End: October 25, 2024 Dr. Marycarmen Rodriguez DO Referring Provider Active Start: October 25, 2024 End: October 25, 2024 Gustabo Pérez FLAG MAKER, FLAG MAKER-C Attending Provider Active S tart: October 25, 2024 End: October 25, 2024 Team Status: Inactive Member Role Status Dates Dr. Marycarmen Rodriguez DO Primary Care Provider Active Start: October 18, 2024 End: October 18, 2024 Marni Horn FLAG MAKER, FLAG MAKER-C Attending Provider Active Start: October 18, 2024 [...] 2024 End: July 03, 2024 Marni Horn FLAG MAKER, FLAG MAKER-C Attending Provider Active Start: July 03, 2024 End: July 03, 2024 Team Status: Inactive Member Role/Relationship Status Dates Dr. Marycarmen Rodriguez DO Primary Care Provider Active Start: July 07, 2024 End: July 07, 2024 Marni Horn FLAG MAKER, FLAG MAKER-C Attending Provider Active Start: July 07, 2024 End: July 07, 2024 Marni Horn FLAG MAKER, FLAG MAKER-C Referring Provider Active Start: July 07, 2024 End: July 07, 2024 Team Status: Inactive Member Role/Relationship Status Dates Dr. Marycarmen Rodriguez DO Primary Care Provider Active Start: July 17, 2024 End: July 17, 2024 Marni Horn FLAG MAKER, FLAG MAKER-C Attending Provider Active Start: July 17, 2024 End: July 17, 2024 Marni Horn FLAG MAKER, FLAG MAKER-C Referring Provider Active Start: July 17, 2024 End: July 17, 2024 Team Status: Active Member Role/Relationship Status Dates Dr. Marycarmen Rodriguez DO Primary Care Provider Active Start: July 17, 2024 Dr. Zen East DO Attending Provider Active S tart: July 17, 2024 Marni Horn FLAG MAKER, FLAG MAKER-C Referring Provider Active Start: July 17, 2024 Team Status: Inactive Member Role/Relationship Status Dates Dr. Marycarmen Rodriguez DO Primary Care Provider Active Start: July 18, 2024 End: July 18, 2024 Marni Horn FLAG MAKER, FLAG MAKER-C Attending Provider Active Start: July 18, 2024 End: July 18, 2024 Marni Horn FLAG MAKER, FLAG MAKER-C Referring Provider Active Start: July 18, 2024 End: July 18, 2024 Team Status: Active Member Role/Relationship Status Dates Dr. Marycarmen Rodriguez DO Primary Care Provider Active Start: July 18, 2024 Marni Horn FLAG MAKER, FLAG MAKER-C Referring Provider Active Start: July 18, 2024 Marni Horn FLAG MAKER, FLAG MAKER-C Other Provider Active Start: July 18, 2024 Dr. Zen East DO Attending Provider Active S tart: July 18, 2024 Team Status: Inactive Member Role/Relationship Status Dates Dr. Marycarmen Rodriguez DO Primary Care Provider Active Start: August 03, 2024 End: August 03, 2024 Marni Horn FLAG MAKER, FLAG MAKER-C Attending Provider Active Start: August 03, 2024 End: August 03, 2024 Marni Horn FLAG MAKER, FLAG MAKER-C Referring Provider Active Start: August 03, 2024 [...] End: September 22, 2024 Marni Horn NP, FLAG MAKER-C Attending Provider Active Start: September 22, 2024 [...] End: October 18, 2024 Gustabo Pérez NP, FLAG MAKER-C Other Provider Active Start : October 18, 2024 End: October 18, 2024 Team Status: Inactive Member Role/Relationship Status Dates Dr. Marycarmen Rodriguez DO Primary Care Provider Active Start: October 18, 2024 End: October 18, 2024 Marni Horn NP FLAG MAKER-C Attending Provider Active Start: October 18, 2024 End: October 18, 2024 Team Status: Inactive Member Role/Relationship Status Dates Dr. Marycarmen Rodriguez DO Primary Care Provider Active Start: October 25, 2024 End: October 25, 2024 Dr. Marycarmen Rodriguez DO Referring Provider Active Start: October 25, 2024 End: October 25, 2024 Gustabo Pérez FLAG MAKER, FLAG MAKER-C Attending Provider Active S tart: October 25, 2024 End: October 25, 2024 Team Status: Active Member Role/Relationship Status Dates Dr. Marycarmen Rodriguez DO Primary Care Provider Active Start: October 26, 2024 Marni Horn FLAG MAKER, FLAG MAKER-C Attending Provider Active Start: October 26, 2024 Marni Horn FLAG MAKER, FLAG MAKER-C Referring Provider Active Start: October 26, 2024 [...] 2024 End: October 26, 2024 Marni Horn FLAG MAKER, FLAG MAKER-C Attending Provider Active Start: October 26, 2024 End: October 26, 2024 Marni Horn FLAG MAKER, FLAG MAKER-C Referring Provider Active Start: October 26, 2024 End: October 26, 2024 Team Status: Inactive Member Role/Relationship Status Dates Dr. Marycarmen Rodriguez DO Primary Care Provider Active Start: August 03, 2024 End: August 03, 2024 Marni Horn FLAG MAKER, FLAG MAKER-C Attending Provider Active Start: August 03, 2024 End: August 03, 2024 Marni Horn FLAG MAKER, FLAG MAKER-C Referring Provider Active Start: August 03, 2024 End: August 03, 2024 Team Status: Inactive Member Role/Relationship Status Dates Dr. Marycarmen Rodriugez DO Primary Care Provider Active Start: September [...] End: September 22, 2024 Marni Horn NP, FLAG MAKER-C Attending Provider Active Start: September 22, 2024 [...] End: October 18, 2024 Gustabo Pérez NP, FLAG MAKER-C Other Provider Active Start : October 18, 2024 End: October 18, 2024 Team Status: Inactive Member Role/Relationship Status Dates Dr. Marycarmen Rodriguez DO Primary Care Provider Active Start: October 18, 2024 End: October 18, 2024 Marni Horn NP, FLAG MAKER-C Attending Provider Active Start: October 18, 2024 End: October 18, 2024 Team Status: Inactive Member Role/Relationship Status Dates Dr. Marycarmen Rodriguez DO Primary Care Provider Active Start: October 25, 2024 End: October 25, 2024 Dr. Marycarmen Rodriguez DO Referring Provider Active Start: October 25, 2024 End: October 25, 2024 Gustabo Pérez NP, FLAG MAKER-C Attending Provider Active S tart: October 25, 2024 End: October 25, 2024 Team Status: Inactive Member Role/Relationship Status Dates Dr. Marycarmen Rodriguez DO Primary Care Provider Active Start: October 26, 2024 End: October 26, 2024 Marni Horn FLAG MAKER, FLAG MAKER-C Attending Provider Active Start: October 26, 2024 End: October 26, 2024 Marni Horn FLAG MAKER, FLAG MAKER-C Referring Provider Active Start: October 26, 2024 End: October 26, 2024 Team Status: Inactive Member Role/Relationship Status Dates Dr. Marycarmen Rodriguez DO Primary Care Provider Active Start: October 31, 2024 End: October 31, 2024 Dr. Marycarmen Rodriguez DO Referring Provider Active Start: October 31, 2024 End: October 31, 2024 DWAIN CalabreseC Attending Provider Active Start: October 31, 2024 [...] Active Start: November 10, 2024 Gustabo Pérez FLAG MAKER, FLAG MAKER-C Attending Provider Active S tart: November 10, 2024 Gustabo Pérez FLAG MAKER, FLAG MAKER-C Referring Provider Active S tart: November 10, 2024 Team Status: Active Member Role/Relationship Status Dates Dr. Marycarmen Rodriguez DO Primary Care Provider Active Start: November 10, 2024 Dr. aLnce Rodriguez MD Attending Provider Active S tart: November 10, 2024 Gustabo Pérez FLAG MAKER, FLAG MAKER-C Referring Provider Active S tart: November 10, [...] Start: November 13, 2024 Gustabo H Roof FLAG MAKER, FLAG MAKER-C Referring Provider Active S tart: November 13, 2024 Gustabo Gao Roof FLAG MAKER, FLAG MAKER-C Other Provider Active Start : November 13, 2024 Dr. Jose Hay MD Attending Provider Active Start: November 13, 2024 Team Status: Inactive Member Role/Relationship Status Dates Dr. Marycarmen Rodriguez DO Primary Care Provider Active Start: November 10, 2024 End: November 10, 2024 Gustabo Gao Beto FLAG MAKER, FLAG MAKER-C Attending Provider Active S tart: November 10, 2024 End: November 10, 2024 Gustabo H Roof FLAG MAKER, FLAG MAKER-C Referring Provider Active S tart: November 10, [...] 2024 End: November 22, 2024 Gustabo Pérez FLAG MAKER, FLAG MAKER-C Attending Provider Active S tart: November 22, [...] Active Start: November 22, 2024 Gustabo Pérez FLAG MAKER, FLAG MAKER-C Attending Provider Active S tart: November 22, 2024 Gustabo Pérez FLAG MAKER, FLAG MAKER-C Referring Provider Active S tart: November 22, [...] 2024 End: November 22, 2024 Gustabo Pérez FLAG MAKER, FLAG MAKER-C Attending Provider Active S tart: November 22, 2024 End: November 22, 2024 Gustabo Pérez FLAG MAKER, FLAG MAKER-C Referring Provider Active S tart: November 22, [...] End: September 22, 2024 Marni Horn NP, FLAG MAKER-C Attending Provider Active Start: September 22, 2024 [...] 2024 End: October 18, 2024 Gustabo Pérez FLAG MAKER, FLAG MAKER-C Other Provider Active Start : October 18, 2024 End: October 18, 2024 Team Status: Inactive Member Role/Relationship Status Dates Dr. Marycarmen Rodriguez DO Primary Care Provider Active Start: October 18, 2024 End: October 18, 2024 Marni Horn FLAG MAKER, FLAG MAKER-C Attending Provider Active Start: October 18, 2024 End: October 18, 2024 Team Status: Inactive Member Role/Relationship Status Dates Dr. Marycarmen Rodriguez DO Primary Care Provider Active Start: October 25, 2024 End: October 25, 2024 Dr. Marycarmen Rodriguez DO Referring Provider Active Start: October 25, 2024 End: October 25, 2024 Gustabo Pérez FLAG MAKER, FLAG MAKER-C Attending Provider Active S tart: October 25, 2024 End: October 25, 2024 Team Status: Inactive Member Role/Relationship Status Dates Dr. Marycarmen Rodriguez DO Primary Care Provider Active Start: October 26, 2024 End: October 26, 2024 Marni Horn FLAG MAKER, FLAG MAKER-C Attending Provider Active Start: October 26, 2024 End: October 26, 2024 Marni Horn FLAG MAKER, FLAG MAKER-C Referring Provider Active Start: October 26, 2024 [...] 2024 End: November 10, 2024 Gustabo Pérez FLAG MAKER, FLAG MAKER-C Attending Provider Active S tart: November 10, 2024 End: November 10, 2024 Gustabo Pérez FLAG MAKER, FLAG MAKER-C Referring Provider Active S tart: November 10, 2024 End: November 10, 2024 Team Status: Active Member Role/Relationship Status Dates Dr. Marycarmen Rodriguez DO Primary Care Provider Active Start: November 10, 2024 Dr. Lance Rodriguez MD Attending Provider Active S tart: November 10, 2024 Gustabo Pérez FLAG MAKER, FLAG MAKER-C Referring Provider Active S tart: November 10, 2024 Team Status: Inactive Member Role/Relationship Status Dates Dr. Marycarmen Rodriguez DO Primary Care Provider Active Start: November 10, 2024 End: November 10, 2024 Maren Olivas FLAG MAKER-C Attending Provider Active Start: November 10, 2024 End: November 10, 2024 Maren Olivas , FLAG MAKER-C Referring Provider Active Start: November 10, 2024 End: November 10, 2024 Team Status: Active Member Role/Relationship Status Dates Dr. Marycarmen Rodriguez DO Primary Care Provider Active Start: November 13, 2024 Gustabo Pérez FLAG MAKER, FLAG MAKER-C Referring Provider Active S tart: November 13, 2024 Gustabo Pérez FLAG MAKER, FLAG MAKER-C Other Provider Active Start : November 13, [...] 2024 End: November 22, 2024 Gustabo Pérez FLAG MAKER, FLAG MAKER-C Attending Provider Active S tart: November 22, 2024 End: November 22, 2024 Team Status: Inactive Member Role/Relationship Status Dates Dr. Marycarmen Rodriguez DO Primary Care Provider Active Start: November 22, 2024 End: November 22, 2024 Gustabo Pérez FLAG MAKER, FLAG MAKER-C Attending Provider Active S tart: November 22, 2024 End: November 22, 2024 Gustabo Pérez FLAG MAKER, FLAG MAKER-C Referring Provider Active S tart: November 22, [...] Provider Active Start: December 05, 2024 Dr. Rashede Canela MD Emergency Provider [...] 2024 End: December 12, 2024 Gustabo Pérez FLAG MAKER, FLAG MAKER-C Attending Provider Active S tart: December 12, [...] Active Start: December 12, 2024 Gustabo Pérez FLAG MAKER, FLAG MAKER-C Attending Provider Active S tart: December 12, 2024 Gustabo Pérez FLAG MAKER, FLAG MAKER-C Referring Provider Active S tart: December 12, [...] 2024 End: December 12, 2024 Gustabo Pérez FLAG MAKER, FLAG MAKER-C Attending Provider Active S tart: December 12, 2024 End: December 12, 2024 Gustabo Pérez FLAG MAKER, FLAG MAKER-C Referring Provider Active S tart: December 12, [...] 2024 End: December 07, 2024 Tess Balderas FLAG MAKER, FLAG MAKER-C Attending Provider Active Start: December 07, 2024 [...] 2024 End: December 12, 2024 Gustabo Pérez FLAG MAKER, FLAG MAKER-C Attending Provider Active S tart: December 12, 2024 End: December 12, 2024 Team Status: Inactive Member Role/Relationship Status Dates Dr. Marycarmen Rodriguez DO Primary Care Provider Active Start: December 12, 2024 End: December 12, 2024 Gustabo Pérez FLAG MAKER, FLAG MAKER-C Attending Provider Active S tart: December 12, 2024 End: December 12, 2024 Gustabo Pérez FLAG MAKER, FLAG MAKER-C Referring Provider Active S tart: December 12, [...] End: January 01, 2025 Dr. Shaan Hirsch DO Emergency Provider Active Start: January 01, [...] BE BASED ON THE PRIMARY CLINICAL RECORDS. [facility] [employer] [facility]. provides no warranty or guarantee of the accuracy or completeness of information in this document.
[2025-03-16 20:19] LABS: Troponin T High Sens 2 HR 21 ng/L (<=22)
[2025-03-16 20:38] LABS: Magnesium 2.1 mg/dL (1.5-2.2)
--- NOTE | 2025-03-16 20:48 | MRI_ITS ---
PROCEDURE: BRAIN WITHOUT CONTRAST 03/17/2025 REASON FOR EXAM: TIA/CVA TECHNIQUE: Procedure Code: MRIBR Modality: MR Procedure: BRAIN WITHOUT CONTRAST Multiplanar and multisequence images were obtained. COMPARISON: CT head March 16, 2025. FINDINGS: Brain: Foci of hyperintense signal on T2 and FLAIR which are nonspecific but most likely due to chronic small vessel ischemia. Parenchymal volume loss consistent with brain atrophy. No restricted diffusion. No hemorrhage. No mass-effect or midline shift. The orbits are unremarkable. The midline structures and craniocervical junctions are within normal limits. No ventriculomegaly.. Ventricles: Normal. Major Intracranial Vessels: Patent. Sinuses: Clear. Mastoids: Clear. MRI/Brain without Contrast IMPRESSION: No acute brain abnormalities. Chronic findings as detailed. Reading Location: [facility]
--- NOTE | 2025-03-16 20:48 | EKG12_ITS ---
Test Reason : CP ADMIT Blood Pressure : */* mmHG Vent. Rate : 66 BPM Atrial Rate : 66 BPM P-R Int : 188 ms QRS Dur : 64 ms QT Int : 496 ms P-R-T Axes : 80 -14 -54 degrees QTcB Int : 519 ms Normal sinus rhythm Low voltage QRS Nonspecific ST and T wave abnormality Prolonged QT Abnormal ECG When compared with ECG of 16-Mar-2025 17:12, MANUAL COMPARISON REQUIRED DATA IS UNCONFIRMED Confirmed by CONCHIS PALOMO, DELFINA ([id number]), manager golf MARÍA AMBROSIO ([id number]) on 03/19/2025 9:46:53 AM Referred By: Confirmed By: DELFINA BALDERRAMA MD
[2025-03-16 22:02] LABS: Troponin T High Sens 4 HR 27 ng/L (<=22)
--- NOTE | 2025-03-16 23:08 | PCM.HOSP.N ---
Hospitalist Note Noted QT prolongation on admission ECG, QT 496ms/QTc 519ms. He is taking mirtazapine and fluoxetine daily. Ordered repeat ECG for AM 0700.
--- NOTE | 2025-03-16 23:43 | CPS ---
Pt is actually on ASV mode EEP 7 HIGH PS 18--- LOW PS 6--- WITH A NASAL MASK.
[2025-03-17] VITALS (7 sets, daily range): BP systolic 103–119; BP diastolic 68–76; PULSE 61–73; RESP 18; TEMP 36.4–36.7; O2SAT 93–95; BMI 32.3
[2025-03-17 05:48] LABS: Hematocrit 38.1 % (40-54); Hemoglobin 12.2 g/dL (13.0-16.5); Immature Granulocytes Count 0.020 X10^3/uL (0.0-0.0); Mean Corp Hgb Conc 32.0 g/dL (32-36); Mean Corpuscular Volume 88.6 fL (80-94); Mean Platelet Vol. 12.7 fl (6.2-12.0); NRBC Flagged by Analyzer 0 % (0-5); Platelet Count 134 K/mm3 (150-450); RBC Distribution Width CV 15.4 % (11.6-14.6); RBC Distribution Width SD 49.9 fl (35.1-43.9); Red Blood Count 4.30 M/mm3 (4.6-6.2); White Blood Count 5.9 K/mm3 (4.4-11.0)
[2025-03-17] MEDS: 0.9% Saline Lock 10 ML Syringe IV (06:15)
[2025-03-17 06:22] LABS: AST(SGOT) 19 U/L (<=37); Alanine Aminotransfer ALT/SGPT 16 U/L (<=46); Albumin, Serum 3.5 g/dL (3.4-4.8); Alkaline Phosphatase 91 U/L (40-129); Anion Gap 11 (5-15); BUN 20 mg/dL (4-19); BUN/Creat Ratio 14.1 RATIO (10-20); Calcium,Total 8.8 mg/dL (7.6-11.0); Carbon Dioxide 22.5 mmol/L (21.0-32.0); Chloride 104 mmol/L (98-108); Cholesterol 139 mg/dL (<=200); Estimated Creatinine Clearance 50.11 ml/min (50-250); Globulin 2.9 g/dL (2.2-4.2); Glucose 132 mg/dL (70-99); Low Density Lipoprotein Calc. 57 mg/dL; Potassium 3.9 mmol/L (3.3-5.1); Triglycerides 238 mg/dL; Very Low Density Lipoprotein 48 mg/dL (5-40); cholesterol:hdl ratio screen 3.20
--- NOTE | 2025-03-17 07:00 | EKG12_ITS ---
Test Reason : AM EKG Blood Pressure : */* mmHG Vent. Rate : 64 BPM Atrial Rate : 64 BPM P-R Int : 194 ms QRS Dur : 64 ms QT Int : 492 ms P-R-T Axes : 78 -3 -50 degrees QTcB Int : 507 ms Normal sinus rhythm Low voltage QRS T wave abnormality, consider inferior ischemia Prolonged QT Abnormal ECG When compared with ECG of 16-Mar-2025 21:58, MANUAL COMPARISON REQUIRED DATA IS UNCONFIRMED Confirmed by CONCHIS PALOMO, DELFINA ([id number]), field map editor MARÍA AMBROSIO ([id number]) on 03/19/2025 9:46:02 AM Referred By: Confirmed By: DELFINA BALDERRAMA MD
[2025-03-17] MEDS: Insulin Glargine-YFGN 100 UNIT/ML Pen 10 UNIT SC (09:13)
--- NOTE | 2025-03-17 11:27 | PN.NEURO_ITS ---
Assessment and Plan: Neuro Assessment/Plan Telestroke Attending Progress Note (Audio/Video Interface) 79 y/o man with h/o Obesity, Chronic anemia, CKD stage III unclear subtype or GFR trending, Thrombocytopenia, Asthma/COPD, HFpEF, Anxiety and Depression, Diabetes mellitus type II, PAF, Hx TIA, MATTHEW, CAD w/ STEMI s/p PCI, Former tobacco use, Hypothyroidism p/w midsternal chest discomfort for the last one day along with generalized weakness, more pronounced on left face/UE and LE. CT of the brain with no acute intracranial findings with chronic involutional and ischemic gliotic white matter changes, CTA head and neck unremarkable with no evidence of hemodynamically significant stenosis or occlusion. A1c-6.9. LDL-57. Today, patient still reports of feeling weak on the left side. When asked about the indication of xarelto at home, he could not tell. Diagnosis:Concern for stroke Plan: Continue home plavix and/or xarelto along with statin. Follow up MRI brain and TTE. OT/PT/SETTER OFF. Control of vascular risk factors. I personally attended this patient and spent a total time of 35 minutes evaluating this patient including clinical assessment, review of chart, medical history imaging, and determining appropriate treatment and workup. Subject: Neurology Subjective No acute events overnight. Today, he is still reports feeling odd and weaker on the left side. EEG Results Procedure Details EEG Procedure Details: GERRY GARCIA is a 79 year old M with a past medical history of , who presents for evaluation of Electroencephalogram on DATE at TIME Objective Data Objective Data Vital Signs: Vital Signs Temp Pulse Resp BP Pulse Ox O2 Del Method 98.0 F 73 18 119/71 95 Room Air 03/17/25 10:00 03/17/25 10:00 03/17/25 10:00 03/17/25 10:55 03/17/25 10:00 03/17/25 10:00 Oxygen Delivery Method Room Air Weight: 99.5 kg Body Mass Index (BMI) 32.3 Intake & Output: Intake and Output for Last 24 Hours 03/15/25 03/16/25 03/17/25 23:59 23:59 23:59 Intake Total 0 / 150 150 / 150 Output Total 700 / 700 Balance 0 / -100 -550 / -550 Lab / Micro Data 03/17/25 05:26 03/17/25 05:26 Labs: Laboratory Results - last 24 hr 03/16/25 17:38: WBC 6.0, RBC 4.20 L, Hgb 11.8 L, Hct 37.8 L, MCV 90.0, MCH 28.1, MCHC 31.2 L, RDW Std Deviation 49.5 H, RDW Coeff of Adrian 15.0 H, Plt Count 135 L, MPV 12.8 H, Immature Gran % (Auto) 0.300, Neut % (Auto) 66.9, Lymph % (Auto) 19.2, Wallace % (Auto) 12.1 H, Eos % (Auto) 1.0, Baso % (Auto) 0.5, Absolute Neuts (auto) 4.0, Absolute Lymphs (auto) 1.16, Nucleated RBC % 0, PT 17.3 H, INR 1.4, APTT 31.8, Sodium 133, Potassium 4.2, Chloride 99, Carbon Dioxide 24.5, Anion Gap 9, BUN 22 H, Creatinine 1.46 H, Estim Creat Clear Calc 47.74 L, Est GFR (MDRD) Non-Af 49 L, BUN/Creatinine Ratio 14.7, Glucose 141 H, Hemoglobin A1c 6.9 H, Calcium 8.4, Magnesium 2.1, Troponin T High Sens 18 D 03/16/25 20:07: Troponin T Hi Sens 2 Hr 21 03/16/25 21:20: POC Glucose 107 H 03/16/25 21:30: Troponin T Hi Sens 4Hr 27 H 03/17/25 05:26: WBC 5.9, RBC 4.30 L, Hgb 12.2 L, Hct 38.1 L, MCV 88.6, MCH 28.4, MCHC 32.0, RDW Std Deviation 49.9 H, RDW Coeff of Adrian 15.4 H, Plt Count 134 L, M PV 12.7 H, Immature Gran % (Auto) 0.300, Neut % (Auto) 61.8, Lymph % (Auto) 24.3, Wallace % (Auto) 12.0 H, Eos % (Auto) 1.3, Baso % (Auto) 0.3, Absolute Neuts (auto) 3.7, Absolute Lymphs (auto) 1.44, Nucleated RBC % 0, Sodium 137, Potassium 3.9, Chloride 104, Carbon Dioxide 22.5, Anion Gap 11, BUN 20 H, C reatinine 1.39 H, Estim Creat Clear Calc 50.11, Est GFR (MDRD) Non-Af 52 L, BUN/Creatinine Ratio 14.1, Glucose 132 H, Calcium 8.8, Total Bilirubin 0.71, AST 19, ALT 16, Alkaline Phosphatase 91, Total Protein 6.4, Albumin 3.5, Globulin 2.9, Albumin/Globulin Ratio 1.2, Triglycerides 238 H, Cholesterol 139, LDL Cholesterol, Calc 57, VLDL Cholesterol 48 H, HDL Cholesterol 44, Cholesterol/HDL Ratio 3.20, TSH 5.680 H 03/17/25 06:13: POC Glucose 135 H Radiography Diagnostic Testing: Radiology Impression Brain CT 03/16/25 17:25 IMPRESSION: 1. No intracranial hemorrhage. No mass effect or midline shift. 2. Chronic involutional and ischemic gliotic white matter changes. CT is insensitive for early evaluation of acute stroke. If there is clinical concern for acute ischemia, an MRI may be considered. Stroke Alert: The critical findings in the findings and impression above were relayed directly by me by telephone to Isael Bernabe on 03/16/2025 at 5:45 p.m. EST with readback verification. Reading Location: [facility] Head/Neck CTA 03/16/25 17:25 IMPRESSION: Unremarkable CT angiogram of the head and neck with no evidence of hemodynamically significant stenosis or occlusion. Reading Location: [facility] Chest X-Ray 03/16/25 18:15 IMPRESSION: No Acute Findings. Reading Location: [facility] Physical Exam Narrative General: The patient appears nutritionally appropriate, well-groomed, and appears comfortable in no acute distress. Mental Status: The patient’s mental status was normal including orientation. Language was intact. Cranial nerves: Visual kim full, and extra-ocular motion was intact. Symmetric face. Motor: Noticed to have drift in LUE and LLE with normal strength in RUE and RLE S ensation: Decrease sensation to touch in left side and intact on right. C oordination: Bilateral finger to nose was normal. There was no dysmetria. G ait: deferred. NIHSS NIHSS Nursing Documentation NIHSS Nursing Documentation: NIH Stroke Scale Start: 03/16/25 17:18 Freq: Status: Discharge Protocol: Activity Type Activity Date Activity User E-sign Co-sign Detail Recorded Client Recorded Date Recorded By Document 03/16/25 17:18 ET [id number] 03/16/25 17:19 ET 03/16/25 17:18 NIH Stroke Scale [NIHSS] A score of 0 is "normal" or asymptomatic . Total possible score is 42. Inpatient: RN or Physician to activate a stroke alert for onset of new stroke symptoms or with NIHSS increase >/= 3 points. Following change in neurological status, NIHSS will be performed per physician order or more frequently PRN. -1a. Level of Consciousness 0 - Alert; keenly responsive -1b. LOC Questions 0 - Answers BOTH questions correctly -1c. LOC Commands 0 - Performs BOTH tasks correctly -2. Best Gaze 0 - Normal -3. Visual 0 - No visual loss -4. Facial Palsy 0 - Normal symmetrical movements -5a. Left Arm 0 - No drift; arm holds 90 ( or 45) degrees for full 10 seconds -5b. Right Arm 0 - No drift; arm holds 90 ( or 45) degrees for full 10 seconds -6a. Left Leg 3 - No effort against gravity ; leg falls to bed immediately -6b. Right Leg 0 - No drift; leg holds 30- degree position for full 5 seconds -7. Limb Ataxia 2 - Present in 2 limbs -8. Sensory 1 - Mild-to- moderate sensory loss; -9. Best Language 0 - No aphasia; normal -10. Dysarthria 0 - Normal -11. Extinction and Inattention 0 - No abnormality -Total 6 Query Text:A score of 0 is "normal" or asymptomatic. Total possible score is 42 . ED: Notify Physician for NIHSS increase by > / = 3 points. Inpatient: RN or Physician to activate a stroke alert for NIHSS increase of > / = 3 points. NIHSS: Ischemic Stroke/TIA Start: 03/16/25 20:48 Text: For PCU Patients: NIH and Neuro Check every 4 Status: Active hours, PRN and with change in RN caregiver. Freq: [id number] Protocol: Activity Type Activity Date Activity User E-sign Co-sign Detail Recorded Client Recorded Date Recorded By Document 03/17/25 10:00 SAY [id number] 03/17/25 11:07 SAY 03/17/25 10:00 -1a. Level of Consciousness 0 - Alert; keenly responsive -1b. LOC Questions 0 - Answers BOTH questions correctly -1c. LOC Commands 0 - Performs BOTH tasks correctly -2. Best Gaze 0 - Normal -3. Visual 0 - No visual loss -4. Facial Palsy 0 - Normal symmetrical movements -5a. Left Arm 0 - No drift; arm holds 90 ( or 45) degrees for full 10 seconds -5b. Right Arm 0 - No drift; arm holds 90 ( or 45) degrees for full 10 seconds -6a. Left Leg 1 - Drift; leg falls by the end of 5- seconds, but does not hit bed -6b. Right Leg 0 - No drift; leg holds 30- degree position for full 5 seconds -7. Limb Ataxia 1 - Present in 1 limb -8. Sensory 1 - Mild-to- moderate sensory loss; -9. Best Language 0 - No aphasia; normal -10. Dysarthria 0 - Normal -11. Extinction and Inattention 0 - No abnormality -Total 3 Query Text:A score of 0 is "normal" or asymptomatic. Total possible score is 42 . ED: Notify Physician for NIHSS increase by > / = 3 points. Inpatient: RN or Physician to activate a stroke alert for NIHSS increase of > / = 3 points. Coma Scale [Assess] -Eye Opening Spontaneous -Motor Obeys Commands -Verbal Oriented [Total] -Coma Scale Total 15 NIHSS 1a. Level of Consciousness: 0 - Alert; keenly responsive 1b. LOC Questions: 0 - Answers BOTH questions correctly 1c. LOC Commands: 0 - Performs BOTH tasks correctly 2. Best Gaze: 0 - Normal 3. Visual: 0 - No visual loss 4. Facial Palsy: 0 - Normal symmetrical movements 5a. Left Arm: 1 - Drift; arm drifts downward but doesn’t hit the bed 5b. Right Arm: 0 - No drift; arm holds 90 (or 45) degrees for full 10 seconds 6a. Left Le - Drift; leg falls by the end of 5-seconds, but does not hit bed 6b. Right Le - No drift; leg holds 30-degree position for full 5 seconds 7. Limb Ataxia: 0 - Absent 8. Sensory: 1 - [id number] sensory loss; 9. Best Language: 0 - No aphasia; normal 10. Dysarthria: 0 - Normal 11. Extinction and Inattention: 0 - No abnormality Total: 3
--- NOTE | 2025-03-17 13:15 | CASEMGMT ---
Social Work SW met w/pt, daughter present. Pt completed PHQ-9 w/SW. Pt scored a 5. SW spoke w/pt about depression and anxiety. Pt states he does have anxiety, and takes medication for it. He does feel that it is helpful. SW asked pt about resources for counseling, pt declined resources. Pt does relate his symptoms to his decline in health, support offered to pt. SW remains available for support to pt and resources should pt decide he would like them. ANNIE Reynoso
--- NOTE | 2025-03-17 13:35 | CASEMGMT ---
Social Work SW called [facility], confirmed pt is active with them. As per Beulah at [facility], there is a inside channel account manager who checks [employer] on the weekends. If pt were to be d/c on the weekend, the fax is [phone]. ANNIE Reynoso
--- NOTE | 2025-03-17 13:40 | CASEMGMT ---
RN DANIELLE Assessment Face to Face with patient for initial transition planning/care coordination assessment. RN CM introduced self and role at [facility], pt voices understanding. Pt is A&Ox4 and is resting comfortably in bed and is calm. Pt's daughter, Audrey, at the bedside. Care providers, pharmacy, and demographics verified. Admitting dx: CAMILLE SINGH Strata: 3 PCP: Victor M Luke Specialists: Isacc MONCADA Pulmiladis Brown Preferred Pharmacy: [facility] Insurance: [facility] A/B, MMO Prescription Benefit: Yes LNOK: Jennie Rico (W), Shannon Miranda(Daughter), Audrey (Daughter) Living Arrangements: Pt lives with his in a single story home with a flat entrance ADLs/IADLs: Pt states that he is indep at baseline. However, pt was only able to ambulate 5 ft with therapy and pt's current 6-Click score is 10. This RN CM reviewed how the pt did with therapy. However, pt denies SNF needs and states that he wants to go home with the resumption of his HHC. See below. Pt also states that his daughter, Shannon, lives very close and is able to help at home. Transportation: Self, , daughter. Denies concerns at this time DME: Pt states that he has a CPAP at home with no any additional oxygen. Pt is currently 96% on RA. Pt also states that he has a BGM with sufficient supplies including lancets, test strips, and EtOH swabs. Pt also reports that he has a FWW, Cane, and pulse ox. HHC/SNF: Reports hx @ [facility]. Recent hx at [facility]. Pt states that [facility] set the pt up with [facility]. Pt states that he wishes to resume their services. Pt states that he was DC'd from PT/OT and has only been seeing a nurse at home. Pt wishes to add PT and OT back on. OMER referral sent to [facility] via [facility] who states that they are able to accept the pt after DC with therapy added on. [facility] notified that ST may also be required. Green sheet placed on the pt's chart to help facilitate potential weekend DC. Pt’s goal: Home with C. Pt denies SNF needs. Plan: Home with [facility] OMER. Pt states that his and daughter will also be able to support him at home. Pt states that he feels safe with this plan and denies any further questions or concerns. ST reports needs after DC are TBD. MRI results are pending. Pt denies further needs at this time. Michael Euceda RN CM
--- NOTE | 2025-03-17 14:00 | CASEMGMT ---
Addendum entered by Leticia Euceda 03/17/25 14:28: DC Instructions sent to [facility] via [facility]. No further needs identified. Addendum entered by Leticia Euceda 03/17/25 14:07: [facility] states OMER will be Wednesday. Original Note: MRI has resulted, see note. notified and states pt will likely DC today. Marly notified. OMER order sent to [facility] via [facility]. [facility] states OMER date is TBD and that they are reaching out to the branch at this time.
--- NOTE | 2025-03-17 14:11 | PCM.DC ---
Discharge Instructions DC O2, CPAP, BIPAP needs Home O2 Discharge instructions: No Dressing / Incision Discharge Activity: Return to Normal Activity Dressing / Incision Call your doctor if you observe: Fever of 101 or Higher, Shortness of breath, Dizziness, Fainting spells, Swelling in the ankles, Chest pain and Increased palpitations (irregular heartbeat) Follow Up Care Test Results: Test results from this visit will be discussed in further detail at your follow-up appointment, if applicable. Discharge Plan Admission Admit Date/Time: 03/16/25 19:23 Attending Provider: Eladio Melendez Primary Care Provider: Victor M Luke Consulting Providers: Elvis Olvera; Sangeeta Negro; Faye Kingsley; Petrona Vargas; Candice Barlow; Diogenes Sheehan; Cari Shultz; Sherman Rouse; Seymour John; Jamar Tapia; Dian Swain; Chrissy Mccallum; Fletcher Good; Sarah Beth Candelaria; Jody Kwno; Fermin José; Christiano Rogers; Nick Bernard; Zay Alanis; Kristina Danielson; Ernestina Milan; Alka Leo Discharge Orders/Prescriptions Prescriptions: Continued fluoxetine 40 mg capsule 80 mg PO DAILY 90 Days Qty: 180 magnesium oxide 400 mg (241.3 mg magnesium) tablet 800 mg PO DAILY cholecalciferol (vitamin D3) 25 mcg (1,000 unit) tablet 25 mcg PO DAILY cyanocobalamin (vitamin B-12) 1,000 mcg tablet 1,000 mcg PO QDAY potassium chloride 10 mEq tablet extended release 10 meq PO QDAY loratadine 10 mg tablet 10 mg PO QDAY spironolactone 50 mg tablet 50 mg PO QAM ranolazine 500 mg tablet extended release 12 hr 500 mg PO BID amlodipine 5 mg tablet 5 mg PO QPM rivaroxaban [Xarelto] 2.5 mg tablet 2.5 mg PO BID Qty: 180 3RF losartan 25 mg tablet 25 mg PO QDAY Qty: 90 3RF acetaminophen 325 MG tablet 650 mg PO Q6H PRN (Reason: Pain 1-02/09) promethazine 12.5 mg tablet 12.5 mg PO Q6H PRN (Reason: nausea and vomiting) Qty: 1 0RF sucralfate 1 gram tablet 1 g PO BID albuterol sulfate [Ventolin HFA] 90 mcg/actuation HFA aerosol inhaler 2 puff INHALATION Q4H PRN PRN (Reason: wheezing) (DME) ASV - Adaptive Servo Ventilation ([facility] INFORMATIONAL USE ONLY) large nasal mask See Rx Instructions .Route .MEDSUPPLY Patient Comments: Prefers N20 Lg . It's a nasal mask. RT set up ASV @ bedside. Pt compliant. Loves it. Rx Instructions: ASV EEP: 7 PSmax: 18 PSmin: 6 DME: ORIGINALL WITH [facility] BUT WAS SET UP VIA [facility] D/T SNF ADMISSION AT [facility] MASK: LARGE F&P DARRION FFM levothyroxine [Synthroid] 25 mcg tablet 25 mcg PO DAILY insulin degludec 100 unit/mL (3 mL) insulin pen 10 unit subcut DAILY ondansetron 4 mg tablet,disintegrating 4 mg PO Q6H PRN (Reason: nausea and vomiting) Preparation H 0.25-14-74.9 % ointment 1 applic AK 4XD PRN (Reason: hemorrhoids) mirtazapine [Remeron] 15 mg tablet 15 mg PO QHS nitroglycerin 0.4 mg tablet, sublingual 0.4 mg SUBLINGUAL Q5-15M PRN (Reason: CHEST PAIN) Qty: 25 3RF atorvastatin 40 mg tablet 40 mg PO QHS Qty: 90 3RF pantoprazole 40 mg tablet,delayed release (DR/EC) 40 mg PO DAILY Qty: 90 3RF furosemide 40 mg tablet 60 mg PO QDAY Rx Instructions: Was increased by PCP. Patient to take 40 mg BID X 3-5 days then return to 60 mg daily. carvedilol 6.25 mg tablet 6.25 mg PO BID Qty: 60 11RF Rx Instructions: must administer with a meal/food clopidogrel 75 mg tablet 75 mg PO QDAY Qty: 90 3RF Referrals / Follow Up: Victor M Luke DO [Primary Care Provider, Family Practice] - Within 1 Week Disposition Disposition (needs filled in before D/C Order can be placed): Home Health Service
--- NOTE | 2025-03-17 16:52 | DS.PCM_ITS ---
Providers Date of Admission: 03/16/25 Primary Care Physician: Dr. Victor M Luke, Consultations 03/16/25 20:48 Consult: Tele-Neurology Routine Consulting Provider: [facility] Reason for Consult: Acute Ischemic Stroke/TIA EMERGENT Consult: No MD Notified: Yes Date Notified: 03/17/25 Time Notified: 00:07 Method of Notification: Answering Service Nursing Unit Staff Notify [facility] of Tele-Neurology Consult: Yes Reason For Visit: CVA Diagnosis Discharge Diagnosis (1) CVA (cerebral vascular accident): Status: Acute Code(s): I63.9 - Cerebral infarction, unspecified Medications at Discharge Home Medications mirtazapine 15 mg tablet (Remeron) 15 mg PO QHS sleep 09/21/18 magnesium oxide 400 mg (241.3 mg magnesium) tablet 800 mg PO DAILY SUPPLEMENT 08/01/21 cholecalciferol (vitamin D3) 25 mcg (1,000 unit) tablet 25 mcg PO DAILY 09/16/21 fluoxetine 40 mg capsule 80 mg PO DAILY DEPRESSION 90 days #180 caps 09/16/21 acetaminophen 325 mg tablet 650 mg PO Q6H PRN Pain 1-02/0910/12/23 atorvastatin 40 mg tablet 40 mg PO QHS CHOLESTEROL #90 tabs 06/14/24 nitroglycerin 0.4 mg sublingual tablet 0.4 mg sublingual Q5-15M PRN CHEST PAIN #25 tabs 06/14/24 pantoprazole 40 mg tablet,delayed release 40 mg PO DAILY GERD #90 tabs 06/14/24 promethazine 12.5 mg tablet 12.5 mg PO Q6H PRN nausea and vomiting #1 TAB 12/17/24 insulin degludec 100 unit/mL (3 mL) subcutaneous pen 10 unit subcut DAILY diabetes 12/24/24 levothyroxine 25 mcg tablet (Synthroid) 25 mcg PO DAILY thyroid 12/24/24 ondansetron 4 mg disintegrating tablet 4 mg PO Q6H PRN nausea and vomiting 12/24/24 cyanocobalamin (vitamin B-12) 1,000 mcg tablet 1,000 mcg PO QDAY 01/15/25 ASV - Adaptive Servo Ventilation ([facility] INFORMATIONAL USE ONLY) 01/26/25 furosemide 40 mg tablet 60 mg PO QDAY 02/02/25 carvedilol 6.25 mg tablet 6.25 mg PO BID #60 tabs 02/22/25 clopidogrel 75 mg tablet 75 mg PO QDAY #90 tabs 02/22/25 amlodipine 5 mg tablet 5 mg PO QPM blood pressure 03/05/25 loratadine 10 mg tablet 10 mg PO QDAY 03/05/25 losartan 25 mg tablet 25 mg PO QDAY #90 tabs 03/05/25 phenylephrine 0.25 %-mineral oil 14 %-petrolatm 74.9 % rectal ointment (Preparation H) 1 applic TX 4XD PRN hemorrhoids 03/05/25 potassium chloride 10 mEq tablet,extended release 10 meq PO QDAY 03/05/25 ranolazine 500 mg tablet,extended release,12 hr 500 mg PO BID 03/05/25 rivaroxaban 2.5 mg tablet (Xarelto) 2.5 mg PO BID #180 tabs 03/05/25 spironolactone 50 mg tablet 50 mg PO QAM 03/05/25 albuterol sulfate 90 mcg/actuation aerosol inhaler (Ventolin HFA) 2 puff inhalation Q4H PRN PRN wheezing 03/16/25 sucralfate 1 gram tablet 1 g PO BID 03/16/25 Hospital Course Operations None Procedures None Summary of Care Provided Minutes Spent on Discharge: 33 Hospital Course: Per HPI: The patient is a 79 y/o M w/ PMHx: Obesity, Chronic anemia, CKD stage III unclear subtype or GFR trending, Thrombocytopenia, Asthma/COPD, HFpEF, Anxiety and Depression, Diabetes mellitus type II, PAF, Hx TIA, MATTHEW, CAD w/ STEMI s/p PCI, Former tobacco use, Hypothyroidism who presents to the [facility] ED on 03/16/2025 with onset of midsternal chest discomfort beginning the day prior however he did not contact EMS until this evening and while in the ambulance just prior to arrival had bilateral lower extremity numbness however left greater than right in addition to the left face and left arm with some improvement to the right lower extremity paresthesias but ongoing changes to the left side. Patient describes the chest discomfort as sharp and heavy with associated dyspnea and diaphoresis. Currently patient is chest pain free. He notes the discomfort was primarily when he was attempting to be active. Patient does report intermittent left groin pain but upon palpation the ED he denies any pain at this time. Workup in the ED included T97.7, heart rate 80, BP 130/82, respiratory rate 24, 97% on room air with most recent repeat vitals heart rate 74, BP 120/73, respiratory rate 16, 96% on room air, CBC with WC 6, hemoglobin 11.8, MCV 90, platelet 135 without marked shift, unremarkable coags aside PT 17.3, BMP with BUN/Cr 22/1.46, GFR 49, glucose 141, troponin 18, CT of the brain with no acute intracranial findings with chronic involutional and ischemic gliotic white matter changes, CTA head and neck unremarkable with no evidence of hemodynamically significant stenosis or occlusion, chest x-ray with no acute cardiopulmonary findings, EKG sinus rhythm with no acute evidence of ischemia. Telestroke was initiated with NIH stroke assessment of 1 4 question, 1 for drift, 3 for against gravity and 1 for mild to moderate sensory loss. Hospital Course: 1. Stroke rule out with chest pain–79-year-old male presented to the hospital with chest pain though he had just had a heart cath at [place] on 01/10/2025 that showed less than 50% coronary artery disease and he states that he has stress test scheduled as an outpatient in a couple weeks. There is also noted previously that he had had a subacute stent thrombosis in the proximal RCA and he did have angioplasty to that as well as thrombus embolization of the right posterior lateral ventricular branch with 2 drug-eluting stents in previous years. Chest pain is resolved and troponins were unremarkable and EKG was nonischemic. He was having some paresthesias bilateral lower extremities as well as facial paresthesia and left lower extremity weakness. MRI today was negative for stroke and CTA of the head and neck was unremarkable. Neurology did not have any further recommendations other than continuing with the Plavix and his low-dose Xarelto. We did offer him possible placement in a alf for physical therapy which he refused and therefore given negative workups I discussed with him the possibility for discharge today and he expressed understanding of the risks and benefits of going home and would like to go home today. I did offer him the possibility of staying through the weekend to move up his stress test from the outpatient stress in 2 weeks to Wednesday however he did not want to stay until Wednesday. He did recover faster than anticipated and he request to be discharged home which is why he was discharged prior to the second midnight. 2. Coronary artery disease status post stent, chronic diastolic CHF, essential hypertension, hyperlipidemia, type 2 diabetes, CKD 4, anxiety, depression are all chronic medical conditions which complicate his care. His home medications were continued where appropriate Physical Exam Narrative General: Alert, Oriented x3, Cooperative, No apparent distress HEENT: Atraumatic, PERRLA, EOMI, Normocephalic Oral: Moist Mucosa Neck: Supple, No JVD Lungs: Diminished, Normal air movement, No rhonchi, No wheeze, No rales Cardiovascular: Regular rate, Regular Rhythm, Normal S1, Normal S2, No murmurs Abdomen: Soft, Non Tender, Non-Distended, No Hepato-splenomegaly Extremities: No edema, Capillary Refill Less than 3 Seconds Skin: No rashes, No breakdown Musculoskeletal: No Tenderness to Palpation of Joints or Extremities Neurological: There is some decrease sensation bilateral lower extremities as well as a little bit of drift on his left leg Psych/Mental Status: Normal Affect, Appropriate Weight / BMI Weight Weight: 219 lb 5.759 oz Body Mass Index (BMI) 32.3 ABG / Lab / Microbiology Data 03/17/25 05:26 03/17/25 05:26 Laboratory: Laboratory Results - last 24 hr 03/16/25 17:38: WBC 6.0, RBC 4.20 L, Hgb 11.8 L, Hct 37.8 L, MCV 90.0, MCH 28.1, MCHC 31.2 L, RDW Std Deviation 49.5 H, RDW Coeff of Adrian 15.0 H, Plt Count 135 L, MPV 12.8 H, Immature Gran % (Auto) 0.300, Neut % (Auto) 66.9, Lymph % (Auto) 19.2, Jewell % (Auto) 12.1 H, Eos % (Auto) 1.0, Baso % (Auto) 0.5, Absolute Neuts (auto) 4.0, Absolute Lymphs (auto) 1.16, Nucleated RBC % 0, PT 17.3 H, INR 1.4, APTT 31.8, Sodium 133, Potassium 4.2, Chloride 99, Carbon Dioxide 24.5, Anion Gap 9, BUN 22 H, Creatinine 1.46 H, Estim Creat Clear Calc 47.74 L, Est GFR (MDRD) Non-Af 49 L, BUN/Creatinine Ratio 14.7, Glucose 141 H, Hemoglobin A1c 6.9 H, Calcium 8.4, Magnesium 2.1, Troponin T High Sens 18 D 03/16/25 20:07: Troponin T Hi Sens 2 Hr 21 03/16/25 21:20: POC Glucose 107 H 03/16/25 21:30: Troponin T Hi Sens 4Hr 27 H 03/17/25 05:26: WBC 5.9, RBC 4.30 L, Hgb 12.2 L, Hct 38.1 L, MCV 88.6, MCH 28.4, MCHC 32.0, RDW Std Deviation 49.9 H, RDW Coeff of Adrian 15.4 H, Plt Count 134 L, M PV 12.7 H, Immature Gran % (Auto) 0.300, Neut % (Auto) 61.8, Lymph % (Auto) 24.3, Jewell % (Auto) 12.0 H, Eos % (Auto) 1.3, Baso % (Auto) 0.3, Absolute Neuts (auto) 3.7, Absolute Lymphs (auto) 1.44, Nucleated RBC % 0, Sodium 137, Potassium 3.9, Chloride 104, Carbon Dioxide 22.5, Anion Gap 11, BUN 20 H, C reatinine 1.39 H, Estim Creat Clear Calc 50.11, Est GFR (MDRD) Non-Af 52 L, BUN/Creatinine Ratio 14.1, Glucose 132 H, Calcium 8.8, Total Bilirubin 0.71, AST 19, ALT 16, Alkaline Phosphatase 91, Total Protein 6.4, Albumin 3.5, Globulin 2.9, Albumin/Globulin Ratio 1.2, Triglycerides 238 H, Cholesterol 139, LDL Cholesterol, Calc 57, VLDL Cholesterol 48 H, HDL Cholesterol 44, Cholesterol/HDL Ratio 3.20, TSH 5.680 H 03/17/25 06:13: POC Glucose 135 H 03/17/25 12:53: POC Glucose 138 H Radiography Diagnostic Testing: Radiology Impression Brain CT 03/16/25 17:25 IMPRESSION: 1. No intracranial hemorrhage. No mass effect or midline shift. 2. Chronic involutional and ischemic gliotic white matter changes. CT is insensitive for early evaluation of acute stroke. If there is clinical concern for acute ischemia, an MRI may be considered. Stroke Alert: The critical findings in the findings and impression above were relayed directly by me by telephone to Isael Bernabe on 03/16/2025 at 5:45 p.m. EST with readback verification. Reading Location: [facility] Head/Neck CTA 03/16/25 17:25 IMPRESSION: Unremarkable CT angiogram of the head and neck with no evidence of hemodynamically significant stenosis or occlusion. Reading Location: [facility] Chest X-Ray 03/16/25 18:15 IMPRESSION: No Acute Findings. Reading Location: [facility] Brain MRI 03/16/25 20:48 IMPRESSION: No acute brain abnormalities. Chronic findings as detailed. Reading Location: [facility] D/C Instructions Call your doctor if you observe: Fever of 101 or Higher, Shortness of breath, Dizziness, Fainting spells, Swelling in the ankles, Chest pain and Increased palpitations (irregular heartbeat) DC O2, CPAP, BIPAP Needs Home O2 Discharge instructions: No Meaningful Use Info Meaningful Use Meaningful Use Diagnoses (Choose all that apply): None applicable Discharge Plan Admission Admit Date/Time: 03/16/25 19:23 Attending Provider: Eladio Melendez Primary Care Provider: Victor M Luke Consulting Providers: Elvis Olvera; Sangeeta Negro; Faye Kingsley; Petrona Vargas; Candice Barlow; Diogenes Sheehan; Cari Shultz; Sherman Rouse; Seymour John; Jamar Tapia; Dian Swain; Chrissy Mccallum; Fletcher Good; Sarah Beth Candelaria; Jody Kwon; Fermin José; Christiano Rogers; Nick Bernard; Zay Alanis; Kristina Danielson; Ernestina Milan; Alka Leo Discharge Orders/Prescriptions Prescriptions: Continued fluoxetine 40 mg capsule 80 mg PO DAILY 90 Days Qty: 180 magnesium oxide 400 mg (241.3 mg magnesium) tablet 800 mg PO DAILY cholecalciferol (vitamin D3) 25 mcg (1,000 unit) tablet 25 mcg PO DAILY cyanocobalamin (vitamin B-12) 1,000 mcg tablet 1,000 mcg PO QDAY potassium chloride 10 mEq tablet extended release 10 meq PO QDAY loratadine 10 mg tablet 10 mg PO QDAY spironolactone 50 mg tablet 50 mg PO QAM ranolazine 500 mg tablet extended release 12 hr 500 mg PO BID amlodipine 5 mg tablet 5 mg PO QPM rivaroxaban [Xarelto] 2.5 mg tablet 2.5 mg PO BID Qty: 180 3RF losartan 25 mg tablet 25 mg PO QDAY Qty: 90 3RF acetaminophen 325 MG tablet 650 mg PO Q6H PRN (Reason: Pain 1-02/09) promethazine 12.5 mg tablet 12.5 mg PO Q6H PRN (Reason: nausea and vomiting) Qty: 1 0RF sucralfate 1 gram tablet 1 g PO BID albuterol sulfate [Ventolin HFA] 90 mcg/actuation HFA aerosol inhaler 2 puff INHALATION Q4H PRN PRN (Reason: wheezing) (DME) ASV - Adaptive Servo Ventilation ([facility] INFORMATIONAL USE ONLY) large nasal mask See Rx Instructions .Route .MEDSUPPLY Patient Comments: Prefers N20 Lg . It's a nasal mask. RT set up ASV @ bedside. Pt compliant. Loves it. Rx Instructions: ASV EEP: 7 PSmax: 18 PSmin: 6 DME: ORIGINALL WITH [facility] BUT WAS SET UP VIA [facility] D/T SN[facility] ADMISSION AT [facility] MASK: LARGE F&P DARRION [facility] levothyroxine [Synthroid] 25 mcg tablet 25 mcg PO DAILY insulin degludec 100 unit/mL (3 mL) insulin pen 10 unit subcut DAILY ondansetron 4 mg tablet,disintegrating 4 mg PO Q6H PRN (Reason: nausea and vomiting) Preparation H 0.25-14-74.9 % ointment 1 applic TX 4XD PRN (Reason: hemorrhoids) mirtazapine [Remeron] 15 mg tablet 15 mg PO QHS nitroglycerin 0.4 mg tablet, sublingual 0.4 mg SUBLINGUAL Q5-15M PRN (Reason: CHEST PAIN) Qty: 25 3RF atorvastatin 40 mg tablet 40 mg PO QHS Qty: 90 3RF pantoprazole 40 mg tablet,delayed release (DR/EC) 40 mg PO DAILY Qty: 90 3RF furosemide 40 mg tablet 60 mg PO QDAY Rx Instructions: Was increased by PCP. Patient to take 40 mg BID X 3-5 days then return to 60 mg daily. carvedilol 6.25 mg tablet 6.25 mg PO BID Qty: 60 11RF Rx Instructions: must administer with a meal/food clopidogrel 75 mg tablet 75 mg PO QDAY Qty: 90 3RF Referrals / Follow Up: Victor M Luke DO [Primary Care Provider, Family Practice] - Within 1 Week Disposition Disposition (needs filled in before D/C Order can be placed): Home Health Service Charges/Coding Visit Charges Inpatient E&M: 38863 Disch Hosp >30min
== END 2025-03-17 15:12 | disposition home health service (06) | DRG 313 ==
LOC: ED 19:34 → PCU 19:49
PROVIDERS: Admitting Provider Family Medicine; Emergency Provider Emergency Medicine; PCP Family Medicine; Visit Provider Family Medicine
DX: R07.9 Chest pain, unspecified (principal); I50.32 Chronic diastolic (congestive) heart failure; N18.4 Chronic kidney disease, stage 4 (severe); I13.0 Hypertensive heart and chronic kidney disease with heart failure and stage 1 through stage 4 chronic kidney disease, or unspecified chronic kidney disease; D69.6 Thrombocytopenia, unspecified; E11.22 Type 2 diabetes mellitus with diabetic chronic kidney disease; E03.9 Hypothyroidism, unspecified; D64.9 Anemia, unspecified; E66.9 Obesity, unspecified; J44.9 Chronic obstructive pulmonary disease, unspecified; F32.A Depression, unspecified; I48.0 Paroxysmal atrial fibrillation; I25.2 Old myocardial infarction; I25.5 Ischemic cardiomyopathy; F41.9 Anxiety disorder, unspecified; G47.33 Obstructive sleep apnea (adult) (pediatric); E78.5 Hyperlipidemia, unspecified; K21.9 Gastro-esophageal reflux disease without esophagitis; I25.10 Atherosclerotic heart disease of native coronary artery without angina pectoris; J30.9 Allergic rhinitis, unspecified; Z79.01 Long term (current) use of anticoagulants; R29.704 NIHSS score 4; Z79.890 Hormone replacement therapy; Z87.891 Personal history of nicotine dependence; Z95.5 Presence of coronary angioplasty implant and graft; Z79.899 Other long term (current) drug therapy; Z86.16 Personal history of COVID-19; Z90.49 Acquired absence of other specified parts of digestive tract; R20.2 Paresthesia of skin; R29.898 Other symptoms and signs involving the musculoskeletal system
CPT/HCPCS: 36415; 70450; 70496; 70498; 70551; 71045; 80048; 80053; 80061; 82962; 83036; 83735; 84443; 84484; 85025; 85610; 85730; 92523; 93005; 94002; 94003; 94762; 97162; 97165; 97802; 99285; Q9967; A4216

== ENCOUNTER → 2025-03-26 | Outpatient (CLI) | payer MEDICARE, OTHER, SELFPAY ==
[2018-08-03 13:04] VITALS: BMI 19.8
--- NOTE | 2025-03-26 06:24 | ECHOCS_ITS ---
Reason For Study Reason For Study: Chest Pain, SOB Procedure This was a 2D Doppler, Color Flow transthoracic echocardiogram. The study was technically difficult. Contrast injection was performed. Exam performed in department. Left Ventricle Mildly dilated left ventricle. Normal left ventricular thickness. Inferior and posterior hypokinesis. Estimated LVEF 40%. Stage III diastolic dysfunction. Right Ventricle Normal right ventricle. Atria The left atrium is moderately enlarged. Normal right atrium. Mitral Valve Trivial mitral valve insufficiency. Tricuspid Valve Trivial tricuspid valve insufficiency. Unable to estimate RV systolic pressure due to insufficient tricuspid regurgitant envelope. Aortic Valve Mildly calcified aortic valve leaflets. Aortic valve sclerosis without stenosis. Trivial aortic valve regurgitation. Pulmonic Valve The pulmonic valve is not well visualized. Great Vessels Normal sized aortic root. Pericardium/Pleural No pericardial effusion. Medication 24 gauge I.V. with prn adaptor inserted into left arm. Diluted definity 2ml given slow IV push to enhance endocardial definition. MMode/2D Measurements & Calculations LVIDd: 6.1 cm IVSd: 0.70 cm Ao root diam: 3.2 cm LVIDs: 4.9 cm LVPWd: 0.81 cm FS: 20.2 % LAV(MOD-bp): 75.8 ml LVAd ap4: 43.2 cm2 SV(MOD-sp4): 64.8 ml LAV(MOD-bp) Indexed: 35.3 ml/m2 LVLd ap4: 9.1 cm SI(MOD-sp4): 30.1 ml/m2 LAV(MOD-sp2): 72.0 ml EDV(MOD-sp4): 168.0 ml LAV(MOD-sp4): 73.6 ml EDV(sp4-el): 174.0 ml LVAs ap4: 30.4 cm2 LVLs ap4: 7.4 cm ESV(MOD-sp4): 103.2 ml ESV(sp4-el): 106.0 ml EF(MOD-sp4): 38.6 % EF(sp4-el): 39.1 % SV(sp4-el): 68.0 ml LA A4 area: 23.2 cm2 LA dimension(2D): 4.4 cm RA A4 area: 15.8 cm2 TAPSE: 1.5 cm Time Measurements MV dec time: 0.19 sec Doppler Measurements & Calculations MV E max nicho: 107.8 cm/sec Lat Peak E' Nicho: 12.2 cm/sec Med Peak E' Nicho: 6.5 cm/sec MV A max nicho: 41.8 cm/sec E/E' lat: 8.8 E/E' med: 16.5 MV E/A: 2.6 MV V2 max: 122.3 cm/sec MV P1/2t max nicho: 121.3 cm/sec Ao V2 max: 160.7 cm/sec MV max P.0 mmHg MV P1/2t: 68.5 msec Ao max P.3 mmHg MV V2 mean: 63.7 cm/sec MV dec slope: 518.7 cm/sec2 Ao V2 mean: 104.8 cm/sec MV mean P.0 mmHg MVA(P1/2t): 3.2 cm2 Ao mean P.2 mmHg MV V2 VTI: 31.5 cm Ao V2 VTI: 32.4 cm AV (velocity ratio): 0.52 LV V1 max: 82.3 cm/sec PA V2 max: 107.7 cm/sec LV V1 max P.7 mmHg LV V1 mean P.5 mmHg LV V1 mean: 57.6 cm/sec LV V1 VTI: 17.0 cm ECHO/Echo Complete W/ Contrast Interpretation Summary Mildly dilated left ventricle. Inferior and posterior hypokinesis. Estimated LVEF 40%. Stage III diastolic dys function. The left atrium is moderately enlarged. Mildly calcified aortic valve leaflets. Aortic valve sclerosis without stenosis . Trivial aortic valve regurgitation. The study was technically difficult. Ordering Physician: Jose Suárez Referring Physician: Jose Suárez Performed By: Tor Acosta RCS
--- OUTSIDE RECORDS SUMMARY | 2025-03-26 06:31 | XMS RPT_ITS | CCD ---
Author Organization [facility] Care Team Providers Care Results Technician Name Role Phone Unavailable Unavailable Unavailable Marycarmen Rodriguez DO Primary Care Provider [phone] Marycarmen Rodriguez DO Primary Care Provider [phone] MIN HOWARD Referring Unavailable MARYCARMEN RODRIGUEZ Primary [...] Unavailable Dr. Marycarmen Rodriguez Primary Care Provider [phone] Dr. Marycarmen Rodriguez Referring Provider Mike PEREA, YRN Laguna Attending Provider Dr. Darnell Corral Attending Provider Mike DIVERSIFIED CROPS II FARMWORKER, DIVERSIFIED CROPS II FARMWORKER-C Luz Elena Referring Provider Mike DIVERSIFIED CROPS II FARMWORKER, DIVERSIFIED CROPS II FARMWORKER-C Luz Elena Other Provider [phone] Dr. John Palacios Attending Provider [phone] Mike DIVERSIFIED CROPS II FARMWORKER, DIVERSIFIED CROPS II FARMWORKER-C Luz Elena Referring Provider Dr. Marycarmen Rodriguez Primary Care Provider [phone] Dr. Marycarmen Rodriguez Referring Provider Mike DIVERSIFIED CROPS II FARMWORKER, DIVERSIFIED CROPS II FARMWORKER-C Luz Elena Attending Provider Dr. Zen East Attending Provider Dr. Marycarmen Rodriguez Primary Care Provider [phone] Dr. Marycarmen Rodriguez Referring Provider Dr. Merritt Persaud Attending Provider PARISH Youssef Attending Provider Mike PEREA, DIVERSIFIED CROPS II FARMWORKER-C Luz Elena Attending Provider Dr. John Palacios Attending Provider Dr. Merritt Persaud Referring Provider Dr. Marycarmen Rodriguez Primary Care Provider [phone] Dr. Marycarmen Rodriguez Referring Provider Dr. Merritt Persaud Attending Provider Marycarmen Gutierrez Primary Care Provider Unavail Adina Phillips Attending Provider Unavailable Dr. Marycarmen Rodriguez Referring Provider Dr. Jose Hay Attending Provider Dr. Marycarmen Rdoriguez Primary Care Provider [phone] Jose Hay Admit Provider Dr. Jose Hay Referring Provider Jose Armando, Dr. Garcia Other Provider Dr. Alex Sanon Referring Provider Unavailable Dr. Pardeep Hall Emergency Provider Dr. Alka Leo Admit Provider Dr. Alka Leo Attending Provider Dr. Alka Leo Other Provider Dr. Shaan Santos Attending Provider Dr. Shaan Santos Other Provider Dr. Aimee Cummins Attending Provider Mike DIVERSIFIED CROPS II FARMWORKER, DIVERSIFIED CROPS II FARMWORKER-C Luz Elena Attending Provider Adina Vallejo Attending [...] Dr. Marycarmen Rodriguez DO Attending Provider Beto DIVERSIFIED CROPS II FARMWORKER-C, Gustabo Gao Attending Provider Beto DIVERSIFIED CROPS II FARMWORKER-C, Gustabo H Referring Provider Justina DIVERSIFIED CROPS II FARMWORKER-CMarni Attending Provider Justina DIVERSIFIED CROPS II FARMWORKER-CMarni Referring Provider Dr. Marycarmen Rodriguez DO Primary [...] Marly DO, Dr. Dow Referring Provider Brendon DIVERSIFIED CROPS II FARMWORKER-CMaren Attending Provider Brendon DIVERSIFIED CROPS II FARMWORKER-C, Maren Clarke Referring Provider [facility] , Dr. Zaldivar Attending Provider Pauline PALOMO, Dr. Guy Attending Provider Pauline PALOMO, Dr. Guy Referring Provider Roof DIVERSIFIED CROPS II FARMWORKER-C, Gustabo Gao Other Provider Roof DIVERSIFIED CROPS II FARMWORKER-C, Gustabo H Attending Provider Marly DO, Dr. Dow Primary Care Provider Marly DO, Dr. Dow Attending Provider Marly DO, Dr. Dow Primary Care Provider Horn DIVERSIFIED CROPS II FARMWORKER-C, Marni Attending Provider Justina DIVERSIFIED CROPS II FARMWORKER-C, Marni Referring Provider Marly DO, Dr. Dow Referring Provider Roof DIVERSIFIED CROPS II FARMWORKER-C, Gustabo Gao Referring Provider Jennifer PALOMO, Dr. Lucas Attending Provider Unavail bear Hay MD, Dr. Garcia Attending Provider MarlyDr. Marycarmen vera DO Primary Care Provider Justina DIVERSIFIED CROPS II FARMWORKER-CMarni Attending Provider Justina DIVERSIFIED CROPS II FARMWORKER-CMarni Referring Provider MarlyDr. Marycarmen vera DO Referring Provider Brendon DIVERSIFIED CROPS II FARMWORKER-CMaren Attending Provider Brendon DIVERSIFIED CROPS II FARMWORKER-CMaren Referring Provider Dr. Marycarmen Rodriguez DO Attending Provider Pauline PALOMO, Dr. Guy Attending Provider Pauline PALOMO, Dr. Guy Referring Provider Roof DIVERSIFIED CROPS II FARMWORKER-C, Gustabo H Other Provider Roof DIVERSIFIED CROPS II FARMWORKER-C, Gustabo H Attending Provider Roof DIVERSIFIED CROPS II FARMWORKER-C, Gustabo H Referring Provider Jennifer PALOMO, Dr. Lucas Attending Provider Unavailab bear Hay MD, Dr. Garcia Attending Provider Isael Bernabe MD Emergency Provider Jose Armando PALOMO, Dr. Garcia Admit Provider Jose Armando PALOMO, Dr. Garcia Referring Provider Keyana CATHERINE, Dr. Rosario Admit Provider Dr. Abraham Ridley DO Attending Provider Dr. Marycarmen Rodriguez DO Primary Care Provider Horn DIVERSIFIED CROPS II FARMWORKER-C, Marni Attending Provider Justina DIVERSIFIED CROPS II FARMWORKER-C, Marni Referring Provider Isael Bernabe MD Attending Provider Dr. Abraham Ridley DO Other Provider Dr. Nickie Danielson DO Attending Provider Elvis Olvera MD Other Provider Unavailable Dr. Sangeeta Negro MD Other Provider Faye Kingsley MD Other Provider Unavailable Dr. Petrona Vargas DO Other Provider [phone] Cain PALOMO, Dr. Harvey Other Provider Dr. [...] Provider Talita PALOMO, Dr. Johnson Attending Provider Unavailjose [...] Ele CATHERINE, Dr. Dow Other Provider Sherrie DIVERSIFIED CROPS II FARMWORKER-C, Tess Attending Provider Shweta PALOMO, Dr. Nix [...] Attila CATHERINE, Dr. Scott Other Provider Amos DIVERSIFIED CROPS II FARMWORKER-C, Karrie Other Provider Kyle DIVERSIFIED CROPS II FARMWORKER-C, Opal Other Provider Lois Grullon Other Provider Al PALOMO, Dr. Eladio Us Attending Provider Al PALOMO, Dr. Eladio Us Other Provider Dr. Tyler Aiken DO Attending Provider Torrey CATHERINE, Dr. Garduno Emergency Provider [phone] JARED CHOWDARY MD Consulting Unavailable PATRIC PALOMO, [...] Unavailable Marly, Marycarmen Primary Care Unavailable Roof DIVERSIFIED CROPS II FARMWORKER, Gustabo Gao Attending Unavailable Roof DIVERSIFIED CROPS II FARMWORKERGustabo Referring Unavailable Opal Wright Attending Unavailable Marly, Marycarmen Primary Care Unavailable Marly, Marycarmen Referring Unavailable Isael Bernabe Attending Unavailable Marly, Marycarmen Primary Care Unavailable Roof DIVERSIFIED CROPS II FARMWORKER, Gustabo Gao Attending Unavailable Roof DIVERSIFIED CROPS II FARMWORKER, Gustabo H Referring Unavailable Marly, Marycarmen Primary Care Unavailable Marly, Marycarmen Primary Care Unavailable Boyd Tom Attending Unavailchula e Marly, Marycarmen Primary Care Unavailable Roof DIVERSIFIED CROPS II FARMWORKER, Gustabo H Referring Unavailable Roof DIVERSIFIED CROPS II FARMWORKER, Gustabo Gao Attending Unavailable Marly, Marycarmen Primary Care Unavailable Oleliane SWAIN Efewongbrittni Referring Unavailabl e Shweta SWAIN Efandrés Attending Unavailabl e [facility] Primary [facility] Unavailable Oleghe OLS, Efewongbe Attending [facility] veronica [facility] Marycarmen Primary Care Unavailable GarryLupe Burtonongbe Attending Unavailchula [facility] Unavailable Mahoganye BRYNN, Efgarryongbe Attending UnavailEladio Ruby Attending Unavailable Timothy Sexton Consulting Unavailable Friend, Tyler Consulting Unavailable Karrie Trinidad Consulting Unavailable Opal Wright Consulting Unavailable Lois Corea Consulting Unavailable Alex Sanon Consulting Unavailable Eladio Melendez Consulting Unavailable Mostafa, Mickey Referring Unavailable Mosteller, Abraham Consulting Unavailable Mosteller, Abraham Admitting Unavailable Marcin Araujo Attending Unavailable [facility] Primary Care Unavailable Mostafa, Mickey Consulting Unavailable Herron, Ramonita Consulting Unavailable Mostafa, Mickey Referring Unavailable Mosteller, Abraham Admitting Unavailable Mosteller, Abraham Consulting Unavailable Alex Sanon Attending Unavailable [facility] Primary Care Unavailable Mostafa, Mickey Consulting Unavailable Herron, Ramonita Consulting Unavailable Azosuha, Samer Consulting Unavailable [facility] Primary Care Unavailable Herron, Ramonita Admitting Unavailable Marycarmen Marlow Attending Unavailable Gopal, Ramonita Consulting Unavailable Marycarmen Marlow Consulting Unavailable Jose Armando, Jose Attending Unavailable [facility] Primary Care Unavailable [facility] Primary Care Unavailable Alka Leo Referring Unavailable Aimee Cummins Attending Unavailable Lance Rodriguez Attending Unavailable Eladio Melendez Referring Unavailable Friend, Tyler Attending Unavailable Mostafa, Mickey Referring Unavailable Mosteller, Abraham Admitting Unavailable Mosteller, Abraham Consulting Unavailable Marcin Araujo Attending Unavailable [facility] Primary Care Unavailable Mostafa, Mickey Consulting Unavailable Herron, Ramonita Consulting Unavailable Alex Sanon Consulting Unavailable Enid Fayer Attending Unavailable [facility] Primary Care Unavailable Shaan Santos Consulting Unavailable Shaan Santos Attending Unavailable [facility] Primary Care Unavailable Shaan Santos Admitting Unavailable Nickie Danielson Attending Unavailable Mosteller, Abraham Consulting Unavailable Mosteller, Abraham Admitting Unavailable Jose Armando, Jose Referring Unavailable [facility] Primary Care Unavailable Elvis Olvera Consulting Unavailable Adeli, Amir Consulting Unavailable Hinduja, Faey Consulting Unavailable Sam, Petrona Consulting Unavailable Zha, [...] Care Unavailable Marly, Marycarmen Referring Unavailable Beto DIVERSIFIED CROPS II FARMWORKER, Gustabo Gao Attending Unavailable Marly, Marycarmen Referring Unavailable Marly, Marycarmen Primary Care Unavailable Beto DIVERSIFIED CROPS II FARMWORKER, Gustabo Gao Attending Unavailable Marly, Marycarmen Primary Care Unavailable Sherrie DIVERSIFIED CROPS II FARMWORKER, Tess Attending Unavailable Marly, Marycarmen Primary Care Unavailable Sherrie DIVERSIFIED CROPS II FARMWORKER, Tess Attending Unavailable Marcin Araujo Attending Unavailable Abraham Ridley Attending Unavailable Jose Hay Attending Unavailable Jose ArmandoJose Referring Unavailable Marly, Marycarmen Primary Care Unavailable Marly, Marycarmen Referring Unavailable Marly, Marycarmen Primary Care Unavailable Justina DIVERSIFIED CROPS II FARMWORKER, Marni Attending Unavailable Marly, Marycarmen Primary Care Unavailable Sherrie DIVERSIFIED CROPS II FARMWORKER, Tess Attending Unavailable Marly, Marycarmen Primary Care Unavailable Azosuha, Samer Consulting Unavailable Ramonita Herron Admitting Unavailable Marycarmen Marlow Attending Unavailable Ramonita Herron Consulting Unavailable Marly, Marycarmen Primary Care Unavailable Justina DIVERSIFIED CROPS II FARMWORKER, Marni Referring Unavailable Justina DIVERSIFIED CROPS II FARMWORKER, Marni Attending Unavailable Marly, Marycarmen Attending Unavailable [...] Unavailable Marly, Marycarmen Primary Care Unavailable Sherrie DIVERSIFIED CROPS II FARMWORKER, Tess Attending Unavailable Marly, Marycarmen Primary Care Unavailable Justina DIVERSIFIED CROPS II FARMWORKER, Marni Referring Unavailable Justina DIVERSIFIED CROPS II FARMWORKER, Marni Attending Unavailable Marly, Marycarmen Primary Care Unavailable Maren Olivas Referring Unavailable Maren Olivas Attending Unavailable Marly, Marycarmen Primary Care Unavailable Tor Irizarry Attending Unavailabl e Marly, Marycarmen Primary Care Unavailable Roof DIVERSIFIED CROPS II FARMWORKER, Gustabo H Consulting Unavailable Brooks Carpenter Attending Unavailable BasaliBrooks Referring Unavailable Marly, Marycarmen Primary Care Unavailable Roof DIVERSIFIED CROPS II FARMWORKER, Gustabo H Attending Unavailable Roof DIVERSIFIED CROPS II FARMWORKER, Gustabo H Referring Unavailable Marly, Marycarmen Primary Care Unavailable Roof DIVERSIFIED CROPS II FARMWORKER, Gustabo Gao Attending Unavailable Roof DIVERSIFIED CROPS II FARMWORKER, Gustabo H Referring Unavailable Marly, Marycarmen Primary Care Unavailable Mckeon DIVERSIFIED CROPS II FARMWORKER, Luz Elena Referring Unavailable Mckeon DIVERSIFIED CROPS II FARMWORKER, Luz Elena Attending Unavailable Marly, Marycarmen Primary Care Unavailable Horn DIVERSIFIED CROPS II FARMWORKER, Marni Attending Unavailable Brooks Carpenter Referring Unavailable [...] e Marly, Marycarmen Primary Care Unavailable Horn DIVERSIFIED CROPS II FARMWORKER, Marni Referring Unavailable Horn DIVERSIFIED CROPS II FARMWORKER, Marni Attending Unavailable Marly, Marycarmen Primary Care Unavailable Horn DIVERSIFIED CROPS II FARMWORKER, Marni Attending Unavailable Marly, Marycarmen Primary Care Unavailable Roof DIVERSIFIED CROPS II FARMWORKER, Gustabo H Referring Unavailable Roof DIVERSIFIED CROPS II FARMWORKER, Gustabo Gao Attending Unavailable GayleRussell garciaril Referring Unavailable GayleMarcin garcia Attending Unavailable Marly, Marycarmen Primary Care Unavailable Marly, Marycarmen Primary Care Unavailable Elías Valdovinos Attending Unavailable Marly, Marycarmen Primary Care Unavailable Horn DIVERSIFIED CROPS II FARMWORKER, Marni Referring Unavailable Horn DIVERSIFIED CROPS II FARMWORKER, Marni Attending Unavailable Roof DIVERSIFIED CROPS II FARMWORKER, Gustabo H Attending Unavailable Roof DIVERSIFIED CROPS II FARMWORKER, Gustabo H Referring Unavailable Marly, Marycarmen Primary Care Unavailable Marly, Marycarmen Primary Care Unavailable Boyd Tom Attending Unavailabl Ramonita Paris Attending Unavailable Roof DIVERSIFIED CROPS II FARMWORKER, Gustabo H Referring Unavailable Marly, Marycarmen Primary Care Unavailable Lance Rodriguez Attending Unavailable Marly, Marycarmen Primary Care Unavailable Horn DIVERSIFIED CROPS II FARMWORKER, Marni Referring Unavailable Zen East Attending Unavailable Marly, Marycarmen Primary Care Unavailable Marcin Araujo Attending Unavailable Marcin Araujo Referring Unavailable Ramonita Herron Attending Unavailable Alex Sanon Attending Unavailable Abraham Ridley Attending Unavailable Alex Sanon Attending Unavailable Alex Sanon Consulting Unavailable Marly, Marycarmen Primary Care Unavailable Zen East Attending Unavailable Horn DIVERSIFIED CROPS II FARMWORKER, Marni Referring Unavailable Horn DIVERSIFIED CROPS II FARMWORKER, Marni Consulting Unavailable Roof DIVERSIFIED CROPS II FARMWORKER, Gustabo H Consulting Unavailable Roof DIVERSIFIED CROPS II FARMWORKER, Gustabo H Referring Unavailable Marly, Marycarmen Primary Care Unavailable Jose Armando, Jose Attending Unavailable Roof DIVERSIFIED CROPS II FARMWORKER, Gustabo Gao Attending Unavailable Marly, Marycarmen Referring Unavailable Marly, Marycarmen Primary Care Unavailable Marly, Marycarmen Primary Care Unavailable [place] DIVERSIFIED CROPS II FARMWORKER, Tess Attending Unavailable Marly, Marycarmen Referring Unavailable Jose Armando, Jose Attending Unavailable Marly, Marycarmen Primary Care Unavailable Roof DIVERSIFIED CROPS II FARMWORKER, Gustabo Gao Attending Unavailable Marly, Marycarmen Referring Unavailable Marly, Marycarmen Primary Care Unavailable Maren Olivas Attending Unavailable Marly, Marycarmen Referring Unavailable Marly, Marycarmen Primary Care Unavailable Marly, Marycarmen Referring Unavailable Roof DIVERSIFIED CROPS II FARMWORKER, Gustabo Gao Attending Unavailable Marly, Marycarmen Primary Care Unavailable Marly, Marycarmen Primary Care Unavailable Marly, Marycarmen Referring Unavailable Jose Armando, Jose Attending Unavailable Marly, Marycarmen Primary Care Unavailable [place] DIVERSIFIED CROPS II FARMWORKER, Tess Attending Unavailable Marly, Marycarmen Primary Care Unavailable [place] DIVERSIFIED CROPS II FARMWORKER, Tess Attending Unavailable Marly, Marycarmen Primary Care Unavailable Roof DIVERSIFIED CROPS II FARMWORKER, Gustabo Gao Attending Unavailable Marly, Marycarmen Referring [...] Unavailable Marly, Marycarmen Primary Care Unavailable Horn DIVERSIFIED CROPS II FARMWORKER, Marni Attending Unavailable Horn DIVERSIFIED CROPS II FARMWORKER, Marni Referring Unavailable Allergies Allergy Classification Reported Allergen(s) Allergy Type Date of Onset Reaction(s) Facility (1 source) Doxycycline; Translations: [doxycycline] Drug Allergy [place] [facility] (1 source) Ticagrelor Drug Allergy 03-05-2025 [facility] Repository Medications Current Medications Medication [...] 10:49am DEPRESSION take 1 capsule by mo kyh twice daily FLUoxetine (PROZAC) 40 MG capsule [...] 1 Fills Dispensed: 0 lactobacillus rhamnosus gg [id number] unt oral capsule (1 source) Start: 01-01-2025 [...] as needed 0 April 17, 2024 1:00am [id number] 200 actuat albuter ol 0.09 mg/actuat metered [...] heart disease (20 sources) 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 Procedure aborted. 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-UIXW-Eq and Stent-Mid RCA x 2 Multi Link [...] Acute and unspecified renal failure (20 sources) [id number] renal failure; Translations: [Acute kidney failure, unspecified] [...] Cardiology Visit Reporton Cardiology Visit Report Normal [facility] .Auto Diffon 01-10-2025 Basophil, Absolute 0.0 10 3/mcL Normal 0.0-0.3 [facility] Comment on above: Performed By: #### D GLENDY #### [address] [address] Basophils/100 WBC (Bld) 0.5 % Normal 0.0-2.5 [facility] Comment on above: Performed By: #### D GLENDY #### [address] [address] Eosinophil, Absolute 0.1 10 3/mcL Normal 0.0-0.7 [facility] Comment on above: Performed By: #### D GLENDY #### [address] [address] Eosinophils/100 WBC (Bld) 1.2 % Normal 0.0-6.0 [facility] Comment on above: Performed By: #### D GLENDY #### [address] [address] Lymphocyte, Absolute 1.0 10 3/mcL Normal 0.9-4.3 [facility] Comment on above: Performed By: #### D GLENDY #### [address] [address] Lymphocytes/100 WBC (Bld) 13.1 % Low 20.0-40.0 [facility] Comment on above: Performed By: #### D GLENDY #### [address] [address] Monocyte, Absolute 0.9 10 3/mcL Normal 0.1-1.4 [facility] Comment on above: Performed By: #### D GLENDY #### [address] [address] Monocytes/100 WBC (Bld) 11.2 % Normal 2.0-13.0 [facility] Comment on above: Performed By: #### D GLENDY #### [address] [address] Neutrophils/100 WBC (Bld) 74.0 % Normal 50.0-75.0 [facility] Comment on above: Performed By: #### D GLENDY #### [address] [address] .GFRon 01-10-2025 Estimated Glomerular Filtration Rate 50 ml/min/1.73sqm Normal [facility] Comment on above: Result Comment: [...] HFP, ANEU, ADIFF, MG, CBC, BMP #### [address] [address] .NEUABSon 01-10-2025 Neutrophil, Absolute 5.6 10 3/mcL Normal 2.3-8.1 [facility] Comment on above: Performed By: #### G FR, HFP, ANEU, ADIFF, MG, CBC, BMP #### [place] [id number] [facility] BUN/Creatinine Ratio 9.2 ratio Low 10.0-22.0 [facility] Comment on above: Performed By: #### G FR, HFP, ANEU, ADIFF, MG, CBC, BMP #### [place] [address] Calcium [Mass/Vol] 9.2 mg/dL Normal 8.7-10.4 [facility] Comment on above: Performed By: #### G FR, HFP, ANEU, ADIFF, MG, CBC, BMP #### [address] [address] Chloride [Moles/Vol] 104 mmol/L Normal 98-110 [facility] Comment on above: Performed By: #### G FR, HFP, ANEU, ADIFF, MG, CBC, BMP #### [address] [address] CO2 [Moles/Vol] 25 mmol/L Normal 22-32 [facility] Comment on above: Performed By: #### G FR, HFP, ANEU, ADIFF, MG, CBC, BMP #### [address] [address] Creatinine [Mass/Vol] 1.42 mg/dL High 0.60-1.40 [facility] Comment on above: Result Comment: Test ing performed on [employer] analyzer using enzymatic creatinine methodology. Performed By: #### G FR, HFP, ANEU, ADIFF, MG, CBC, BMP #### [address] [address] Electrolyte Balance 12.0 mEq/L Normal 4.0-15.0 [facility] Comment on above: Performed By: #### G FR, HFP, ANEU, ADIFF, MG, CBC, BMP #### [address] [address] Glucose [Mass/Vol] 151 mg/dL High 82-115 [facility] Comment on above: Performed By: #### G FR, HFP, ANEU, ADIFF, MG, CBC, BMP #### [address] [address] Potassium [Moles/Vol] 3.6 mmol/L Normal 3.5-5.0 [facility] Comment on above: Performed By: #### G FR, HFP, ANEU, ADIFF, MG, CBC, BMP #### [address] [address] Sodium [Moles/Vol] 141 mmol/L Normal 136-145 [facility] Comment on above: Performed By: #### G FR, HFP, ANEU, ADIFF, MG, CBC, BMP #### [address] [address] Urea nitrogen [Mass/Vol] 13.0 mg/dL Normal 8.0-22.0 [facility] Comment on above: Performed By: #### G FR, HFP, ANEU, ADIFF, MG, CBC, BMP #### [address] [address] CBCon 01-10-2025 Erythrocyte distribution width (RBC) [Ratio] 15.7 % High 11.5-15.5 [facility] Comment on above: Performed By: #### D GLENDY #### [address] [address] Hematocrit (Bld) [Volume fraction] 37.0 % Low 40.0-52.0 [facility] Comment on above: Performed By: #### D GLENDY #### [place] [address] Hgb 12.0 G/dL Low 13.0-17.5 [facility] Comment on above: Performed By: #### D GLENDY #### [place] [address] MCH (RBC) [Entitic mass] 28.5 pg Normal 27.0-33.0 [facility] Comment on above: Performed By: #### D GLENDY #### [place] [address] MCHC 32.4 G/dL Normal 32.0-36.0 [facility] Comment on above: Performed By: #### D GLENDY #### [place] [address] MCV (RBC) [Entitic vol] 87.9 fL Normal 81.0-100.0 [facility] Comment on above: Performed By: #### D GLENDY #### [place] [address] Platelet 171 10 3/mcL Normal 150-450 [facility] Comment on above: Performed By: #### D GLENDY #### [place] [address] Platelet mean volume (Bld) [Entitic vol] 10.8 fL High 6.4-10.5 [facility] Comment on above: Performed By: #### D GLENDY #### [place] [address] RBC 4.21 10 6/mcL Low 4.50-6.00 [facility] Comment on above: Performed By: #### D GLENDY #### [place] [address] WBC 7.6 10 3/mcL Normal 4.5-10.8 [facility] Comment on above: Performed By: #### D GLENDY #### [place] [address] HFPon 01-10-2025 Bili Indirect 0.5 mg/dL Normal 0.1-10.0 [facility] Comment on above: Performed By: #### G FR, HFP, ANEU, ADIFF, MG, CBC, BMP #### [place] [address] Albumin Level 2.9 G/dL Low 3.2-4.8 [facility] Comment on above: Performed By: #### G FR, HFP, ANEU, ADIFF, MG, CBC, BMP #### [place] [address] Albumin/Globulin [Mass ratio] 0.8 {ratio} Low 0.9-1.6 [facility] Comment on above: Performed By: #### G FR, HFP, ANEU, ADIFF, MG, CBC, BMP #### [place] [address] ALP [Catalytic activity/Vol] 128 U/L High 38-126 [facility] Comment on above: Performed By: #### G FR, HFP, ANEU, ADIFF, MG, CBC, BMP #### [place] [address] ALT [Catalytic activity/Vol] 56 U/L High 12-55 [facility] Comment on above: Performed By: #### G FR, HFP, ANEU, ADIFF, MG, CBC, BMP #### [place] [address] AST [Catalytic activity/Vol] 27 U/L Normal 8-34 [facility] Comment on above: Performed By: #### G FR, HFP, ANEU, ADIFF, MG, CBC, BMP #### [place] [address] Bili Direct 0.2 mg/dL Normal 0.0-0.4 [facility] Comment on above: Result Comment: Use of this assay is not recommended for patients undergoing treatment with eltrombopag due to the potential for falsely elevated results. Performed By: #### G FR, HFP, ANEU, ADIFF, MG, CBC, BMP #### [place] [address] Bili Total 0.70 mg/dL Normal 0.20-1.20 [facility] Comment on above: Result Comment: Use of this assay is not recommended for patients undergoing treatment with eltrombopag due to the potential for falsely elevated results. Performed By: #### G FR, HFP, ANEU, ADIFF, MG, CBC, BMP #### [address] [address] Globulin 3.5 G/dL Normal 2.5-4.2 [facility] Comment on above: Performed By: #### G FR, HFP, ANEU, ADIFF, MG, CBC, BMP #### [address] [address] Total Protein 6.4 G/dL Normal 5.7-8.2 [facility] Comment on above: Performed By: #### G FR, HFP, ANEU, ADIFF, MG, CBC, BMP #### [address] [address] LABORATORYOrdered By: Danny Harrison on 01-10-2025 Blood Glucose Testing Reason Routine (01/10/25 11:14 AM) [facility] Work Phone: Glucose [Mass/Vol] 151 mg/dL High 82 - 115 mg/dL [facility] Work Phone: LABORATORYOrdered By: Kristyn William on 01-10-2025 Blood Glucose Testing Reason Routine (01/10/25 7:34 AM) [facility] Work Phone: Glucose [Mass/Vol] 133 mg/dL High 82 - 115 mg/dL [facility] Work Phone: LABORATORYOrdered By: SYSTEM SYSTEM [...] above: Interpretive Data: T esting performed on [employer] analyzer using enzymatic creatinine methodology. Electrolyte Balance [...] 01-10-2025 Magnesium [Mass/Vol] 2.2 mg/dL Normal 1.6-2.4 [facility] Comment on above: Performed By: #### G FR, HFP, ANEU, ADIFF, MG, CBC, BMP #### [address] [address] .Auto Diffon 01-09-2025 Basophil, Absolute 0.0 10 3/mcL Normal 0.0-0.3 [facility] Comment on above: Performed By: #### D GLENDY #### [address] [address] Basophils/100 WBC (Bld) 0.3 % Normal 0.0-2.5 [facility] Comment on above: Performed By: #### D GLENDY #### [address] [address] Eosinophil, Absolute 0.1 10 3/mcL Normal 0.0-0.7 [facility] Comment on above: Performed By: #### D GLENDY #### [address] [address] Eosinophils/100 WBC (Bld) 1.3 % Normal 0.0-6.0 [facility] Comment on above: Performed By: #### D GLENDY #### [address] [address] Lymphocyte, Absolute 1.1 10 3/mcL Normal 0.9-4.3 [facility] Comment on above: Performed By: #### D GLENDY #### [address] [address] Lymphocytes/100 WBC (Bld) 19.1 % Low 20.0-40.0 [facility] Comment on above: Performed By: #### D GLENDY #### [address] [address] Monocyte, Absolute 0.7 10 3/mcL Normal 0.1-1.4 [facility] Comment on above: Performed By: #### D GLENDY #### [address] [address] Monocytes/100 WBC (Bld) 12.4 % Normal 2.0-13.0 [facility] Comment on above: Performed By: #### D GLENDY #### [address] [address] Neutrophils/100 WBC (Bld) 66.9 % Normal 50.0-75.0 [facility] Comment on above: Performed By: #### D GLENDY #### [address] [address] .GFRon 01-09-2025 Estimated Glomerular Filtration Rate 56 ml/min/1.73sqm Normal [facility] Comment on above: Result Comment: [...] results. Performed By: #### D GLENDY #### [place] [address] .NEUABSon 01-09-2025 Neutrophil, Absolute 3.9 10 3/mcL Normal 2.3-8.1 [facility] Comment on above: Performed By: #### D GLENDY #### [address] [address] BMPon 01-09-2025 BUN/Creatinine Ratio 9.2 ratio Low 10.0-22.0 [facility] Comment on above: Performed By: #### D GLENDY #### [place] [id number] Calcium [Mass/Vol] 8.8 mg/dL Normal 8.7-10.4 [facility] Comment on above: Performed By: #### D GLENDY #### [place] [id number] Chloride [Moles/Vol] 104 mmol/L Normal 98-110 [facility] Comment on above: Performed By: #### D GLENDY #### [place] [id number] CO2 [Moles/Vol] 28 mmol/L Normal 22-32 [facility] Comment on above: Performed By: #### D GLENDY #### [place] [id number] Creatinine [Mass/Vol] 1.30 mg/dL Normal 0.60-1.40 [facility] Comment on above: Result Comment: Test ing performed on [employer] analyzer using enzymatic creatinine methodology. Performed By: #### D GLENDY #### [place] [address] Electrolyte Balance 9.0 mEq/L Normal 4.0-15.0 [facility] Comment on above: Performed By: #### D GLENDY #### [place] [id number] Glucose [Mass/Vol] 103 mg/dL Normal 82-115 [facility] Comment on above: Performed By: #### D GLENDY #### [place] [id number] Potassium [Moles/Vol] 3.3 mmol/L Low 3.5-5.0 [facility] Comment on above: Performed By: #### D GLENDY #### [place] [address] Sodium [Moles/Vol] 141 mmol/L Normal 136-145 [facility] Comment on above: Performed By: #### D GLENDY #### [place] [address] Urea nitrogen [Mass/Vol] 12.0 mg/dL Normal 8.0-22.0 [facility] Comment on above: Performed By: #### D GLENDY #### [place] [address] CBCon 01-09-2025 Erythrocyte distribution width (RBC) [Ratio] 15.7 % High 11.5-15.5 [facility] Comment on above: Performed By: #### G FR, CBC, ANEU, ADIFF, MG, BMP, HFP #### [place] [address] Hematocrit (Bld) [Volume fraction] 33.1 % Low 40.0-52.0 [facility] Comment on above: Performed By: #### G FR, CBC, ANEU, ADIFF, MG, BMP, HFP #### [place] [address] Hgb 10.9 G/dL Low 13.0-17.5 [facility] Comment on above: Performed By: #### G FR, CBC, ANEU, ADIFF, MG, BMP, HFP #### [place] [address] MCH (RBC) [Entitic mass] 29.1 pg Normal 27.0-33.0 [facility] Comment on above: Performed By: #### G FR, CBC, ANEU, ADIFF, MG, BMP, HFP #### [place] [address] MCHC 32.8 G/dL Normal 32.0-36.0 [facility] Comment on above: Performed By: #### G FR, CBC, ANEU, ADIFF, MG, BMP, HFP #### [place] [address] MCV (RBC) [Entitic vol] 88.8 fL Normal 81.0-100.0 [facility] Comment on above: Performed By: #### G FR, CBC, ANEU, ADIFF, MG, BMP, HFP #### [place] [address] Platelet 150 10 3/mcL Normal 150-450 [facility] Comment on above: Performed By: #### G FR, CBC, ANEU, ADIFF, MG, BMP, HFP #### [place] [address] Platelet mean volume (Bld) [Entitic vol] 11.2 fL High 6.4-10.5 [facility] Comment on above: Performed By: #### G FR, CBC, ANEU, ADIFF, MG, BMP, HFP #### [place] [address] RBC 3.73 10 6/mcL Low 4.50-6.00 [facility] Comment on above: Performed By: #### G FR, CBC, ANEU, ADIFF, MG, BMP, HFP #### [place] [id number] WBC 5.8 10 3/mcL Normal 4.5-10.8 [facility] Comment on above: Performed By: #### G FR, CBC, ANEU, ADIFF, MG, BMP, HFP #### [address] 01[address]-2025 Bili Indirect 0.6 mg/dL Normal 0.1-10.0 [facility] Comment on above: Performed By: #### D GLENDY #### [place] [address] Albumin Level 2.8 G/dL Low 3.2-4.8 [facility] Comment on above: Performed By: #### D GLENDY #### [place] [address] Albumin/Globulin [Mass ratio] 0.8 {ratio} Low 0.9-1.6 [facility] Comment on above: Performed By: #### D GLENDY #### [place] [address] ALP [Catalytic activity/Vol] 107 U/L Normal 38-126 [facility] Comment on above: Performed By: #### D GLENDY #### [place] [id number] ALT [Catalytic activity/Vol] 69 U/L High 12-55 [facility] Comment on above: Performed By: #### D GLENDY #### [place] [address] AST [Catalytic activity/Vol] 26 U/L Normal 8-34 [facility] Comment on above: Performed By: #### D GLENDY #### [place] [address] Bili Direct 0.3 mg/dL Normal 0.0-0.4 [facility] Comment on above: Result Comment: Use of this assay is not recommended for patients undergoing treatment with eltrombopag due to the potential for falsely elevated results. Performed By: #### D GLENDY #### [place] [address] Bili Total 0.90 mg/dL Normal 0.20-1.20 [facility] Comment on above: Result Comment: Use of this assay is not recommended for patients undergoing treatment with eltrombopag due to the potential for falsely elevated results. Performed By: #### D GLENDY #### [place] [address] Globulin 3.3 G/dL Normal 2.5-4.2 [facility] Comment on above: Performed By: #### D GLENDY #### [place] [address] Total Protein 6.1 G/dL Normal 5.7-8.2 [facility] Comment on above: Performed By: #### D GLENDY #### [place] [address] LABORATORYOrdered By: Julieta Farr on 01-09-2025 Blood Glucose Testing Reason Routine (01/09/25 9:04 PM) [facility] Work Phone: Glucose [Mass/Vol] 145 mg/dL High 82 - 115 mg/dL [facility] Work Phone: LABORATORYOrdered By: SYSTEM SYSTEM [...] above: Interpretive Data: T esting performed on [employer] analyzer using enzymatic creatinine methodology. Electrolyte Balance [...] 01-09-2025 Magnesium [Mass/Vol] 2.1 mg/dL Normal 1.6-2.4 [facility] Comment on above: Performed By: #### D GLENDY #### [address] [address] .Auto Diffon 01-08-2025 Basophil, Absolute 0.0 10 3/mcL Normal 0.0-0.3 [facility] Comment on above: Performed By: #### G FR, CBC, ANEU, ADIFF, MG, BMP, HFP #### [address] [address] Basophils/100 WBC (Bld) 0.3 % Normal 0.0-2.5 [facility] Comment on above: Performed By: #### G FR, CBC, ANEU, ADIFF, MG, BMP, HFP #### [address] [address] Eosinophil, Absolute 0.1 10 3/mcL Normal 0.0-0.7 [facility] Comment on above: Performed By: #### G FR, CBC, ANEU, ADIFF, MG, BMP, HFP #### [address] [address] Eosinophils/100 WBC (Bld) 1.2 % Normal 0.0-6.0 [facility] Comment on above: Performed By: #### G FR, CBC, ANEU, ADIFF, MG, BMP, HFP #### [address] [address] Lymphocyte, Absolute 0.9 10 3/mcL Normal 0.9-4.3 [facility] Comment on above: Performed By: #### G FR, CBC, ANEU, ADIFF, MG, BMP, HFP #### [address] [address] Lymphocytes/100 WBC (Bld) 15.5 % Low 20.0-40.0 [facility] Comment on above: Performed By: #### G FR, CBC, ANEU, ADIFF, MG, BMP, HFP #### [address] [address] Monocyte, Absolute 0.7 10 3/mcL Normal 0.1-1.4 [facility] Comment on above: Performed By: #### G FR, CBC, ANEU, ADIFF, MG, BMP, HFP #### [address] [address] Monocytes/100 WBC (Bld) 11.6 % Normal 2.0-13.0 [facility] Comment on above: Performed By: #### G FR, CBC, ANEU, ADIFF, MG, BMP, HFP #### [address] [address] Neutrophils/100 WBC (Bld) 71.4 % Normal 50.0-75.0 [facility] Comment on above: Performed By: #### G FR, CBC, ANEU, ADIFF, MG, BMP, HFP #### [address] [address] .GFRon 01-08-2025 Estimated Glomerular Filtration Rate 57 ml/min/1.73sqm Normal [facility] Comment on above: Result Comment: [...] CBC, ANEU, ADIFF, MG, BMP, HFP #### [address] [address] .NEUABSon 01-08-2025 Neutrophil, Absolute 4.1 10 3/mcL Normal 2.3-8.1 [facility] Comment on above: Performed By: #### G FR, CBC, ANEU, ADIFF, MG, BMP, HFP #### [address] [address] [facility] BUN/Creatinine Ratio 12.5 ratio Normal 10.0-22.0 [facility] Comment on above: Performed By: #### G FR, CBC, ANEU, ADIFF, MG, BMP, HFP #### [address] [address] Calcium [Mass/Vol] 8.4 mg/dL Low 8.7-10.4 [facility] Comment on above: Performed By: #### G FR, CBC, ANEU, ADIFF, MG, BMP, HFP #### [address] [address] Chloride [Moles/Vol] 104 mmol/L Normal 98-110 [facility] Comment on above: Performed By: #### G FR, CBC, ANEU, ADIFF, MG, BMP, HFP #### [address] [address] CO2 [Moles/Vol] 26 mmol/L Normal 22-32 [facility] Comment on above: Performed By: #### G FR, CBC, ANEU, ADIFF, MG, BMP, HFP #### [address] [address] Creatinine [Mass/Vol] 1.28 mg/dL Normal 0.60-1.40 [facility] Comment on above: Result Comment: Test ing performed on [employer] analyzer using enzymatic creatinine methodology. Performed By: #### G FR, CBC, ANEU, ADIFF, MG, BMP, HFP #### [place] [id number] Electrolyte Balance 11.0 mEq/L Normal 4.0-15.0 [facility] Comment on above: Performed By: #### G FR, CBC, ANEU, ADIFF, MG, BMP, HFP #### [address] [address] Glucose [Mass/Vol] 110 mg/dL Normal 82-115 [facility] Comment on above: Performed By: #### G FR, CBC, ANEU, ADIFF, MG, BMP, HFP #### [place] [id number] Potassium [Moles/Vol] 3.2 mmol/L Low 3.5-5.0 [facility] Comment on above: Performed By: #### G FR, CBC, ANEU, ADIFF, MG, BMP, HFP #### [address] [address] Sodium [Moles/Vol] 141 mmol/L Normal 136-145 [facility] Comment on above: Performed By: #### G FR, CBC, ANEU, ADIFF, MG, BMP, HFP #### [place] [id number] Urea nitrogen [Mass/Vol] 16.0 mg/dL Normal 8.0-22.0 [facility] Comment on above: Performed By: #### G FR, CBC, ANEU, ADIFF, MG, BMP, HFP #### [place] [address] CBCon 01-08-2025 Erythrocyte distribution width (RBC) [Ratio] 15.3 % Normal 11.5-15.5 [facility] Comment on above: Performed By: #### G FR, CBC, ANEU, ADIFF, MG, BMP, HFP #### [place] [address] Hematocrit (Bld) [Volume fraction] 31.9 % Low 40.0-52.0 [facility] Comment on above: Performed By: #### G FR, CBC, ANEU, ADIFF, MG, BMP, HFP #### [place] [address] Hgb 10.6 G/dL Low 13.0-17.5 [facility] Comment on above: Performed By: #### G FR, CBC, ANEU, ADIFF, MG, BMP, HFP #### [place] [address] MCH (RBC) [Entitic mass] 28.9 pg Normal 27.0-33.0 [facility] Comment on above: Performed By: #### G FR, CBC, ANEU, ADIFF, MG, BMP, HFP #### [place] [address] MCHC 33.1 G/dL Normal 32.0-36.0 [facility] Comment on above: Performed By: #### G FR, CBC, ANEU, ADIFF, MG, BMP, HFP #### [place] [address] MCV (RBC) [Entitic vol] 87.2 fL Normal 81.0-100.0 [facility] Comment on above: Performed By: #### G FR, CBC, ANEU, ADIFF, MG, BMP, HFP #### [place] [address] Platelet 143 10 3/mcL Low 150-450 [facility] Comment on above: Performed By: #### G FR, CBC, ANEU, ADIFF, MG, BMP, HFP #### [place] [address] Platelet mean volume (Bld) [Entitic vol] 11.1 fL High 6.4-10.5 [facility] Comment on above: Performed By: #### G FR, CBC, ANEU, ADIFF, MG, BMP, HFP #### [place] [address] RBC 3.65 10 6/mcL Low 4.50-6.00 [facility] Comment on above: Performed By: #### G FR, CBC, ANEU, ADIFF, MG, BMP, HFP #### [place] [address] WBC 5.7 10 3/mcL Normal 4.5-10.8 [facility] Comment on above: Performed By: #### G FR, CBC, ANEU, ADIFF, MG, BMP, HFP #### [place] [address] HFPon 01-08-2025 Bili Indirect 0.7 mg/dL Normal 0.1-10.0 [facility] Comment on above: Performed By: #### G FR, CBC, ANEU, ADIFF, MG, BMP, HFP #### [place] [address] Albumin Level 2.6 G/dL Low 3.2-4.8 [facility] Comment on above: Performed By: #### G FR, CBC, ANEU, ADIFF, MG, BMP, HFP #### [place] [address] Albumin/Globulin [Mass ratio] 0.8 {ratio} Low 0.9-1.6 [facility] Comment on above: Performed By: #### G FR, CBC, ANEU, ADIFF, MG, BMP, HFP #### [place] [address] ALP [Catalytic activity/Vol] 111 U/L Normal 38-126 [facility] Comment on above: Performed By: #### G FR, CBC, ANEU, ADIFF, MG, BMP, HFP #### [place] [address] ALT [Catalytic activity/Vol] 106 U/L High 12-55 [facility] Comment on above: Performed By: #### G FR, CBC, ANEU, ADIFF, MG, BMP, HFP #### [place] [address] AST [Catalytic activity/Vol] 43 U/L High 8-34 [facility] Comment on above: Performed By: #### G FR, CBC, ANEU, ADIFF, MG, BMP, HFP #### [place] [address] Bili Direct 0.3 mg/dL Normal 0.0-0.4 [facility] Comment on above: Result Comment: Use of this assay is not recommended for patients undergoing treatment with eltrombopag due to the potential for falsely elevated results. Performed By: #### G FR, CBC, ANEU, ADIFF, MG, BMP, HFP #### [place] [address] Bili Total 1.00 mg/dL Normal 0.20-1.20 [facility] Comment on above: Result Comment: Use of this assay is not recommended for patients undergoing treatment with eltrombopag due to the potential for falsely elevated results. Performed By: #### G FR, CBC, ANEU, ADIFF, MG, BMP, HFP #### [place] [address] Globulin 3.4 G/dL Normal 2.5-4.2 [facility] Comment on above: Performed By: #### G FR, CBC, ANEU, ADIFF, MG, BMP, HFP #### [place] [address] Total Protein 6.0 G/dL Normal 5.7-8.2 [facility] Comment on above: Performed By: #### G FR, CBC, ANEU, ADIFF, MG, BMP, HFP #### [place] [address] LABORATORYOrdered By: SYSTEM SYSTEM on 01-08-2025 Albumin [...] above: Interpretive Data: T esting performed on [employer] analyzer using enzymatic creatinine methodology. Electrolyte Balance [...] Filtration Rate 57 ml/min/1.73sqm Invalid Interpretation Code [facility] Comment on above: Interpretive Data: [...] 3.4 G/dL Normal 2.5 - 4.2 G/dL [facility] Glucose [Mass/Vol] 110 mg/dL Normal 82 - 115 mg/dL [facility] Hematocrit (Bld) [Volume fraction] 31.9 % [...] 01-08-2025 Magnesium [Mass/Vol] 2.1 mg/dL Normal 1.6-2.4 [facility] Comment on above: Performed By: #### G FR, CBC, ANEU, ADIFF, MG, BMP, HFP #### [address] [address] .Auto Diffon 01-07-2025 Basophil, Absolute 0.0 10 3/mcL Normal 0.0-0.3 [facility] Comment on above: Performed By: #### G FR, HFP, ANEU, ADIFF, MG, CBC, BMP #### [address] [address] Basophils/100 WBC (Bld) 0.4 % Normal 0.0-2.5 [facility] Comment on above: Performed By: #### G FR, HFP, ANEU, ADIFF, MG, CBC, BMP #### [address] [address] Eosinophil, Absolute 0.0 10 3/mcL Normal 0.0-0.7 [facility] Comment on above: Performed By: #### G FR, HFP, ANEU, ADIFF, MG, CBC, BMP #### [address] [address] Eosinophils/100 WBC (Bld) 0.9 % Normal 0.0-6.0 [facility] Comment on above: Performed By: #### G FR, HFP, ANEU, ADIFF, MG, CBC, BMP #### [address] [address] Lymphocyte, Absolute 0.6 10 3/mcL Low 0.9-4.3 [facility] Comment on above: Performed By: #### G FR, HFP, ANEU, ADIFF, MG, CBC, BMP #### [address] [address] Lymphocytes/100 WBC (Bld) 10.5 % Low 20.0-40.0 [facility] Comment on above: Performed By: #### G FR, HFP, ANEU, ADIFF, MG, CBC, BMP #### [address] [address] Monocyte, Absolute 0.6 10 3/mcL Normal 0.1-1.4 [facility] Comment on above: Performed By: #### G FR, HFP, ANEU, ADIFF, MG, CBC, BMP #### [address] [address] Monocytes/100 WBC (Bld) 10.0 % Normal 2.0-13.0 [facility] Comment on above: Performed By: #### G FR, HFP, ANEU, ADIFF, MG, CBC, BMP #### [address] [address] Neutrophils/100 WBC (Bld) 78.2 % High 50.0-75.0 [facility] Comment on above: Performed By: #### G FR, HFP, ANEU, ADIFF, MG, CBC, BMP #### [address] [address] .GFRon 01-07-2025 Estimated Glomerular Filtration Rate 51 ml/min/1.73sqm Normal [facility] Comment on above: Result Comment: [...] CBC, ANEU, ADIFF, MG, BMP, HFP #### [place] [address] .NEUABSon 01-07-2025 Neutrophil, Absolute 4.5 10 3/mcL Normal 2.3-8.1 [facility] Comment on above: Performed By: #### G FR, CBC, ANEU, ADIFF, MG, BMP, HFP #### [address] [address] [facility] BUN/Creatinine Ratio 12.9 ratio Normal 10.0-22.0 [facility] Comment on above: Performed By: #### G FR, CBC, ANEU, ADIFF, MG, BMP, HFP #### [address] [address] Calcium [Mass/Vol] 9.1 mg/dL Normal 8.7-10.4 [facility] Comment on above: Performed By: #### G FR, CBC, ANEU, ADIFF, MG, BMP, HFP #### [address] [address] Chloride [Moles/Vol] 105 mmol/L Normal 98-110 [facility] Comment on above: Performed By: #### G FR, CBC, ANEU, ADIFF, MG, BMP, HFP #### [address] [address] CO2 [Moles/Vol] 25 mmol/L Normal 22-32 [facility] Comment on above: Performed By: #### G FR, CBC, ANEU, ADIFF, MG, BMP, HFP #### [address] [address] Creatinine [Mass/Vol] 1.40 mg/dL Normal 0.60-1.40 [facility] Comment on above: Result Comment: Test ing performed on [employer] analyzer using enzymatic creatinine methodology. Performed By: #### G FR, CBC, ANEU, ADIFF, MG, BMP, HFP #### [address] [address] Electrolyte Balance 7.0 mEq/L Normal 4.0-15.0 [facility] Comment on above: Performed By: #### G FR, CBC, ANEU, ADIFF, MG, BMP, HFP #### [place] [id number] Glucose [Mass/Vol] 120 mg/dL High 82-115 [facility] Comment on above: Performed By: #### G FR, CBC, ANEU, ADIFF, MG, BMP, HFP #### [address] [address] Potassium [Moles/Vol] 3.5 mmol/L Normal 3.5-5.0 [facility] Comment on above: Performed By: #### G FR, CBC, ANEU, ADIFF, MG, BMP, HFP #### [address] [address] Sodium [Moles/Vol] 137 mmol/L Normal 136-145 [facility] Comment on above: Performed By: #### G FR, CBC, ANEU, ADIFF, MG, BMP, HFP #### [address] [address] Urea nitrogen [Mass/Vol] 18.0 mg/dL Normal 8.0-22.0 [facility] Comment on above: Performed By: #### G FR, CBC, ANEU, ADIFF, MG, BMP, HFP #### [address] [address] CBCon 01-07-2025 Erythrocyte distribution width (RBC) [Ratio] 15.8 % High 11.5-15.5 [facility] Comment on above: Performed By: #### G FR, HFP, ANEU, ADIFF, MG, CBC, BMP #### [place] [id number] Hematocrit (Bld) [Volume fraction] 31.5 % Low 40.0-52.0 [facility] Comment on above: Performed By: #### G FR, HFP, ANEU, ADIFF, MG, CBC, BMP #### [place] [address] Hgb 10.3 G/dL Low 13.0-17.5 [facility] Comment on above: Performed By: #### G FR, HFP, ANEU, ADIFF, MG, CBC, BMP #### [place] [address] MCH (RBC) [Entitic mass] 29.0 pg Normal 27.0-33.0 [facility] Comment on above: Performed By: #### G FR, HFP, ANEU, ADIFF, MG, CBC, BMP #### [place] [address] MCHC 32.6 G/dL Normal 32.0-36.0 [facility] Comment on above: Performed By: #### G FR, HFP, ANEU, ADIFF, MG, CBC, BMP #### [place] [address] MCV (RBC) [Entitic vol] 89.0 fL Normal 81.0-100.0 [facility] Comment on above: Performed By: #### G FR, HFP, ANEU, ADIFF, MG, CBC, BMP #### [place] [address] Platelet 134 10 3/mcL Low 150-450 [facility] Comment on above: Performed By: #### G FR, HFP, ANEU, ADIFF, MG, CBC, BMP #### [place] [address] Platelet mean volume (Bld) [Entitic vol] 11.3 fL High 6.4-10.5 [facility] Comment on above: Performed By: #### G FR, HFP, ANEU, ADIFF, MG, CBC, BMP #### [place] [address] RBC 3.54 10 6/mcL Low 4.50-6.00 [facility] Comment on above: Performed By: #### G FR, HFP, ANEU, ADIFF, MG, CBC, BMP #### [place] [address] WBC 5.8 10 3/mcL Normal 4.5-10.8 [facility] Comment on above: Performed By: #### G FR, HFP, ANEU, ADIFF, MG, CBC, BMP #### [place] [address] HFPon 01-07-2025 Bili Indirect 0.9 mg/dL Normal 0.1-10.0 [facility] Comment on above: Performed By: #### G FR, CBC, ANEU, ADIFF, MG, BMP, HFP #### [place] [address] Albumin Level 2.7 G/dL Low 3.2-4.8 [facility] Comment on above: Performed By: #### G FR, CBC, ANEU, ADIFF, MG, BMP, HFP #### [place] [id number] Albumin/Globulin [Mass ratio] 0.8 {ratio} Low 0.9-1.6 [facility] Comment on above: Performed By: #### G FR, CBC, ANEU, ADIFF, MG, BMP, HFP #### [place] [id number] ALP [Catalytic activity/Vol] 108 U/L Normal 38-126 [facility] Comment on above: Performed By: #### G FR, CBC, ANEU, ADIFF, MG, BMP, HFP #### [place] [id number] ALT [Catalytic activity/Vol] 139 U/L High 12-55 [facility] Comment on above: Performed By: #### G FR, CBC, ANEU, ADIFF, MG, BMP, HFP #### [place] [id number] AST [Catalytic activity/Vol] 75 U/L High 8-34 [facility] Comment on above: Performed By: #### G FR, CBC, ANEU, ADIFF, MG, BMP, HFP #### [place] [id number] Bili Direct 0.5 mg/dL High 0.0-0.4 [facility] Comment on above: Result Comment: Use of this assay is not recommended for patients undergoing treatment with eltrombopag due to the potential for falsely elevated results. Performed By: #### G FR, CBC, ANEU, ADIFF, MG, BMP, HFP #### [place] [address] Bili Total 1.40 mg/dL High 0.20-1.20 [facility] Comment on above: Result Comment: Use of this assay is not recommended for patients undergoing treatment with eltrombopag due to the potential for falsely elevated results. Performed By: #### G FR, CBC, ANEU, ADIFF, MG, BMP, HFP #### [place] [address] Globulin 3.5 G/dL Normal 2.5-4.2 [facility] Comment on above: Performed By: #### G FR, CBC, ANEU, ADIFF, MG, BMP, HFP #### [place] [address] Total Protein 6.2 G/dL Normal 5.7-8.2 [facility] Comment on above: Performed By: #### G FR, CBC, ANEU, ADIFF, MG, BMP, HFP #### [place] [address] MGon 01-07-2025 Magnesium [Mass/Vol] 2.2 mg/dL Normal 1.6-2.4 [facility] Comment on above: Performed By: #### G FR, CBC, ANEU, ADIFF, MG, BMP, HFP #### [address] [address] .Auto Diffon 01-06-2025 Basophil, Absolute 0.0 10 3/mcL Normal 0.0-0.3 [facility] Comment on above: Performed By: #### G FR, CBC, ANEU, ADIFF, MG, BMP, HFP #### [address] [address] Basophils/100 WBC (Bld) 0.0 % Normal 0.0-2.5 [facility] Comment on above: Performed By: #### G FR, CBC, ANEU, ADIFF, MG, BMP, HFP #### [address] [address] Eosinophil, Absolute 0.0 10 3/mcL Normal 0.0-0.7 [facility] Comment on above: Performed By: #### G FR, CBC, ANEU, ADIFF, MG, BMP, HFP #### [place] [id number] Eosinophils/100 WBC (Bld) 0.1 % Normal 0.0-6.0 [facility] Comment on above: Performed By: #### G FR, CBC, ANEU, ADIFF, MG, BMP, HFP #### [address] [address] Lymphocyte, Absolute 0.6 10 3/mcL Low 0.9-4.3 [facility] Comment on above: Performed By: #### G FR, CBC, ANEU, ADIFF, MG, BMP, HFP #### [address] [address] Lymphocytes/100 WBC (Bld) 6.1 % Low 20.0-40.0 [facility] Comment on above: Performed By: #### G FR, CBC, ANEU, ADIFF, MG, BMP, HFP #### [place] [id number] Monocyte, Absolute 0.7 10 3/mcL Normal 0.1-1.4 [facility] Comment on above: Performed By: #### G FR, CBC, ANEU, ADIFF, MG, BMP, HFP #### [address] [address] Monocytes/100 WBC (Bld) 6.9 % Normal 2.0-13.0 [facility] Comment on above: Performed By: #### G FR, CBC, ANEU, ADIFF, MG, BMP, HFP #### [address] [address] Neutrophils/100 WBC (Bld) 86.9 % High 50.0-75.0 [facility] Comment on above: Performed By: #### G FR, CBC, ANEU, ADIFF, MG, BMP, HFP #### [address] [address] Basophil, Absolute 0.0 10 3/mcL Normal 0.0-0.3 [facility] Comment on above: Performed By: #### G FR, CBC, ANEU, ADIFF, MG, BMP, HFP #### [address] [address] Basophils/100 WBC (Bld) 0.2 % Normal 0.0-2.5 [facility] Comment on above: Performed By: #### G FR, CBC, ANEU, ADIFF, MG, BMP, HFP #### [address] [address] Eosinophil, Absolute 0.0 10 3/mcL Normal 0.0-0.7 [facility] Comment on above: Performed By: #### G FR, CBC, ANEU, ADIFF, MG, BMP, HFP #### [address] [address] Eosinophils/100 WBC (Bld) 0.1 % Normal 0.0-6.0 [facility] Comment on above: Performed By: #### G FR, CBC, ANEU, ADIFF, MG, BMP, HFP #### [address] [address] Lymphocyte, Absolute 0.8 10 3/mcL Low 0.9-4.3 [facility] Comment on above: Performed By: #### G FR, CBC, ANEU, ADIFF, MG, BMP, HFP #### [address] [address] Lymphocytes/100 WBC (Bld) 9.9 % Low 20.0-40.0 [facility] Comment on above: Performed By: #### G FR, CBC, ANEU, ADIFF, MG, BMP, HFP #### [address] [address] Monocyte, Absolute 0.8 10 3/mcL Normal 0.1-1.4 [facility] Comment on above: Performed By: #### G FR, CBC, ANEU, ADIFF, MG, BMP, HFP #### [address] [address] Monocytes/100 WBC (Bld) 9.3 % Normal 2.0-13.0 [facility] Comment on above: Performed By: #### G FR, CBC, ANEU, ADIFF, MG, BMP, HFP #### [address] [address] Neutrophils/100 WBC (Bld) 80.5 % High 50.0-75.0 [facility] Comment on above: Performed By: #### G FR, CBC, ANEU, ADIFF, MG, BMP, HFP #### [place] [address] .GFRon 01-06-2025 Estimated Glomerular Filtration Rate 43 ml/min/1.73sqm Normal [facility] Comment on above: Result Comment: [...] CBC, ANEU, ADIFF, MG, BMP, HFP #### [place] [address] .NEUABSon 01-06-2025 Neutrophil, Absolute 8.4 10 3/mcL High 2.3-8.1 [facility] Comment on above: Performed By: #### G FR, CBC, ANEU, ADIFF, MG, BMP, HFP #### [place] [id number] Neutrophil, Absolute 6.7 10 3/mcL Normal 2.3-8.1 [facility] Comment on above: Performed By: #### G FR, CBC, ANEU, ADIFF, MG, BMP, HFP #### [address] [address] BMPon 01-06-2025 BUN/Creatinine Ratio 11.2 ratio Normal 10.0-22.0 [facility] Comment on above: Performed By: #### G FR, CBC, ANEU, ADIFF, MG, BMP, HFP #### [place] [address] Calcium [Mass/Vol] 8.9 mg/dL Normal 8.7-10.4 [facility] Comment on above: Performed By: #### G FR, CBC, ANEU, ADIFF, MG, BMP, HFP #### [place] [address] Chloride [Moles/Vol] 104 mmol/L Normal 98-110 [facility] Comment on above: Performed By: #### G FR, CBC, ANEU, ADIFF, MG, BMP, HFP #### [place] [address] CO2 [Moles/Vol] 25 mmol/L Normal 22-32 [facility] Comment on above: Performed By: #### G FR, CBC, ANEU, ADIFF, MG, BMP, HFP #### [place] [id number] Creatinine [Mass/Vol] 1.61 mg/dL High 0.60-1.40 [facility] Comment on above: Result Comment: Test ing performed on [employer] analyzer using enzymatic creatinine methodology. Performed By: #### G FR, CBC, ANEU, ADIFF, MG, BMP, HFP #### [address] [address] Electrolyte Balance 13.0 mEq/L Normal 4.0-15.0 [facility] Comment on above: Performed By: #### G FR, CBC, ANEU, ADIFF, MG, BMP, HFP #### [place] [address] Glucose [Mass/Vol] 131 mg/dL High 82-115 [facility] Comment on above: Performed By: #### G FR, CBC, ANEU, ADIFF, MG, BMP, HFP #### [place] [address] Potassium [Moles/Vol] 3.8 mmol/L Normal 3.5-5.0 [facility] Comment on above: Performed By: #### G FR, CBC, ANEU, ADIFF, MG, BMP, HFP #### [place] [id number] Sodium [Moles/Vol] 142 mmol/L Normal 136-145 [facility] Comment on above: Performed By: #### G FR, CBC, ANEU, ADIFF, MG, BMP, HFP #### [place] [address] Urea nitrogen [Mass/Vol] 18.0 mg/dL Normal 8.0-22.0 [facility] Comment on above: Performed By: #### G FR, CBC, ANEU, ADIFF, MG, BMP, HFP #### [address] [address] CBCon 01-06-2025 Erythrocyte distribution width (RBC) [Ratio] 15.8 % High 11.5-15.5 [facility] Comment on above: Performed By: #### G FR, CBC, ANEU, ADIFF, MG, BMP, HFP #### [place] [id number] Hematocrit (Bld) [Volume fraction] 34.0 % Low 40.0-52.0 [facility] Comment on above: Performed By: #### G FR, CBC, ANEU, ADIFF, MG, BMP, HFP #### [place] [id number] Hgb 10.9 G/dL Low 13.0-17.5 [facility] Comment on above: Performed By: #### G FR, CBC, ANEU, ADIFF, MG, BMP, HFP #### [place] [address] MCH (RBC) [Entitic mass] 28.4 pg Normal 27.0-33.0 [facility] Comment on above: Performed By: #### G FR, CBC, ANEU, ADIFF, MG, BMP, HFP #### [place] [address] MCHC 32.0 G/dL Normal 32.0-36.0 [facility] Comment on above: Performed By: #### G FR, CBC, ANEU, ADIFF, MG, BMP, HFP #### [place] [address] MCV (RBC) [Entitic vol] 88.8 fL Normal 81.0-100.0 [facility] Comment on above: Performed By: #### G FR, CBC, ANEU, ADIFF, MG, BMP, HFP #### [place] [address] Platelet 188 10 3/mcL Normal 150-450 [facility] Comment on above: Performed By: #### G FR, CBC, ANEU, ADIFF, MG, BMP, HFP #### [place] [address] Platelet mean volume (Bld) [Entitic vol] 11.4 fL High 6.4-10.5 [facility] Comment on above: Performed By: #### G FR, CBC, ANEU, ADIFF, MG, BMP, HFP #### [place] [address] RBC 3.83 10 6/mcL Low 4.50-6.00 [facility] Comment on above: Performed By: #### G FR, CBC, ANEU, ADIFF, MG, BMP, HFP #### [place] [address] WBC 9.7 10 3/mcL Normal 4.5-10.8 [facility] Comment on above: Performed By: #### G FR, CBC, ANEU, ADIFF, MG, BMP, HFP #### [place] [address] Erythrocyte distribution width (RBC) [Ratio] 16.0 % High 11.5-15.5 [facility] Comment on above: Performed By: #### G FR, CBC, ANEU, ADIFF, MG, BMP, HFP #### [place] [id number] Hematocrit (Bld) [Volume fraction] 32.6 % Low 40.0-52.0 [facility] Comment on above: Performed By: #### G FR, CBC, ANEU, ADIFF, MG, BMP, HFP #### [place] [address] Hgb 10.7 G/dL Low 13.0-17.5 [facility] Comment on above: Performed By: #### G FR, CBC, ANEU, ADIFF, MG, BMP, HFP #### [place] [address] MCH (RBC) [Entitic mass] 28.9 pg Normal 27.0-33.0 [facility] Comment on above: Performed By: #### G FR, CBC, ANEU, ADIFF, MG, BMP, HFP #### [place] [address] MCHC 32.7 G/dL Normal 32.0-36.0 [facility] Comment on above: Performed By: #### G FR, CBC, ANEU, ADIFF, MG, BMP, HFP #### [place] [address] MCV (RBC) [Entitic vol] 88.3 fL Normal 81.0-100.0 [facility] Comment on above: Performed By: #### G FR, CBC, ANEU, ADIFF, MG, BMP, HFP #### [place] [address] Platelet 167 10 3/mcL Normal 150-450 [facility] Comment on above: Performed By: #### G FR, CBC, ANEU, ADIFF, MG, BMP, HFP #### [address] [place], [place] [address] Platelet mean volume (Bld) [Entitic vol] 11.1 fL High 6.4-10.5 [facility] Comment on above: Performed By: #### G FR, CBC, ANEU, ADIFF, MG, BMP, HFP #### [facility] [address] [place] [address] RBC 3.69 10 6/mcL Low 4.50-6.00 [facility] Comment on above: Performed By: #### G FR, CBC, ANEU, ADIFF, MG, BMP, HFP #### [address] [address] WBC 8.3 10 3/mcL Normal 4.5-10.8 [facility] Comment on above: Performed By: #### G FR, CBC, ANEU, ADIFF, MG, BMP, HFP #### [place] [id number] DIMERon 01-06-2025 D-Dimer 635 ng/mL D-DU High 0-230 [facility] Comment on above: Result Comment: [...] (PE). Performed By: #### D GLENDY #### [place] [id number] Ron 01-06-2025 Ferritin [Mass/Vol] 488.0 ng/mL High 26.0-388.0 [facility] Comment on above: Performed By: #### G FR, CBC, ANEU, ADIFF, MG, BMP, HFP #### [address] [address] FESon 01-06-2025 Iron [Mass/Vol] 17 ug/dL Low 65-175 [facility] Comment on above: Performed By: #### G FR, CBC, ANEU, ADIFF, MG, BMP, HFP #### [place] [address] Iron Sat 8 % Normal [facility] Comment on above: Performed By: #### G FR, CBC, ANEU, ADIFF, MG, BMP, HFP #### [place] [address] TIBC 226 mcg/dL Low 250-500 [facility] Comment on above: Performed By: #### G FR, CBC, ANEU, ADIFF, MG, BMP, HFP #### [address] 01-06-2025 Bili Indirect 1.2 mg/dL Normal 0.1-10.0 [facility] Comment on above: Performed By: #### G FR, CBC, ANEU, ADIFF, MG, BMP, HFP #### [place] [address] Albumin Level 2.8 G/dL Low 3.2-4.8 [facility] Comment on above: Performed By: #### G FR, CBC, ANEU, ADIFF, MG, BMP, HFP #### [place] [address] Albumin/Globulin [Mass ratio] 0.8 {ratio} Low 0.9-1.6 [facility] Comment on above: Performed By: #### G FR, CBC, ANEU, ADIFF, MG, BMP, HFP #### [place] [address] ALP [Catalytic activity/Vol] 109 U/L Normal 38-126 [facility] Comment on above: Performed By: #### G FR, CBC, ANEU, ADIFF, MG, BMP, HFP #### [place] [address] ALT [Catalytic activity/Vol] 150 U/L High 12-55 [facility] Comment on above: Performed By: #### G FR, CBC, ANEU, ADIFF, MG, BMP, HFP #### [place] [address] AST [Catalytic activity/Vol] 146 U/L High 8-34 [facility] Comment on above: Performed By: #### G FR, CBC, ANEU, ADIFF, MG, BMP, HFP #### [place] [address] Bili Direct 0.4 mg/dL Normal 0.0-0.4 [facility] Comment on above: Result Comment: Use of this assay is not recommended for patients undergoing treatment with eltrombopag due to the potential for falsely elevated results. Performed By: #### G FR, CBC, ANEU, ADIFF, MG, BMP, HFP #### [place] [address] Bili Total 1.60 mg/dL High 0.20-1.20 [facility] Comment on above: Result Comment: Use of this assay is not recommended for patients undergoing treatment with eltrombopag due to the potential for falsely elevated results. Performed By: #### G FR, CBC, ANEU, ADIFF, MG, BMP, HFP #### [place] [address] Globulin 3.6 G/dL Normal 2.5-4.2 [facility] Comment on above: Performed By: #### G FR, CBC, ANEU, ADIFF, MG, BMP, HFP #### [place] [address] Total Protein 6.4 G/dL Normal 5.7-8.2 [facility] Comment on above: Performed By: #### G FR, CBC, ANEU, ADIFF, MG, BMP, HFP #### [place] [address] LABORATORYOrdered By: SYSTEM SYSTEM on 01-06-2025 D-Dimer [...] ng/L Male: 0-54 ng/L Testing performed on [employer] analyzer using direct chemiluminescent technology. MGon 01-06-2025 Magnesium [Mass/Vol] 2.3 mg/dL Normal 1.6-2.4 [facility] Comment on above: Performed By: #### G FR, CBC, ANEU, ADIFF, MG, BMP, HFP #### [place] [address] PBNPon 01-06-2025 Natriuretic peptide B (Bld) [Mass/Vol] 5578 pg/mL High 0-1800 [facility] Comment on above: Performed By: #### D GLENDY #### [address] [address] TROPHSon 01-06-2025 High Sensitivity Troponin I 2660 ng/L High 0-54 [facility] Comment on above: Result Comment: High Sensitive Troponin I Reference Ranges: Female: 0-34 ng/L Male: 0-54 ng/L Testing performed on [employer] analyzer using direct chemiluminescent technology. Performed By: #### D GLENDY #### [place] [id number] XR CHEST 1 VIEWon 01-06-2025 XR CHEST [...] 11:26:21 AM Ordering Provider: ARMANDO BAÑUELOS Normal [facility] .Auto Diffon 01-05-2025 Basophil, Absolute 0.0 10 3/mcL Normal 0.0-0.3 [facility] Comment on above: Performed By: #### G FR, CBC, ANEU, ADIFF, MG, BMP, HFP #### [address] [address] Basophils/100 WBC (Bld) 0.3 % Normal 0.0-2.5 [facility] Comment on above: Performed By: #### G FR, CBC, ANEU, ADIFF, MG, BMP, HFP #### [address] [address] Eosinophil, Absolute 0.1 10 3/mcL Normal 0.0-0.7 [facility] Comment on above: Performed By: #### G FR, CBC, ANEU, ADIFF, MG, BMP, HFP #### [address] [address] Eosinophils/100 WBC (Bld) 0.7 % Normal 0.0-6.0 [facility] Comment on above: Performed By: #### G FR, CBC, ANEU, ADIFF, MG, BMP, HFP #### [address] [address] Lymphocyte, Absolute 0.7 10 3/mcL Low 0.9-4.3 [facility] Comment on above: Performed By: #### G FR, CBC, ANEU, ADIFF, MG, BMP, HFP #### [address] [address] Lymphocytes/100 WBC (Bld) 10.1 % Low 20.0-40.0 [facility] Comment on above: Performed By: #### G FR, CBC, ANEU, ADIFF, MG, BMP, HFP #### [address] [address] Monocyte, Absolute 0.8 10 3/mcL Normal 0.1-1.4 [facility] Comment on above: Performed By: #### G FR, CBC, ANEU, ADIFF, MG, BMP, HFP #### [address] [address] Monocytes/100 WBC (Bld) 11.0 % Normal 2.0-13.0 [facility] Comment on above: Performed By: #### G FR, CBC, ANEU, ADIFF, MG, BMP, HFP #### [address] [address] Neutrophils/100 WBC (Bld) 77.9 % High 50.0-75.0 [facility] Comment on above: Performed By: #### G FR, CBC, ANEU, ADIFF, MG, BMP, HFP #### [address] [address] .GFRon 01-05-2025 Estimated Glomerular Filtration Rate 48 ml/min/1.73sqm Normal [facility] Comment on above: Result Comment: [...] CBC, ANEU, ADIFF, MG, BMP, HFP #### [address] [address] .NEUABSon 01-05-2025 Neutrophil, Absolute 5.5 10 3/mcL Normal 2.3-8.1 [facility] Comment on above: Performed By: #### G FR, CBC, ANEU, ADIFF, MG, BMP, HFP #### [address] [address] [facility] BUN/Creatinine Ratio 10.2 ratio Normal 10.0-22.0 [facility] Comment on above: Performed By: #### G FR, CBC, ANEU, ADIFF, MG, BMP, HFP #### [address] [address] Calcium [Mass/Vol] 8.8 mg/dL Normal 8.7-10.4 [facility] Comment on above: Performed By: #### G FR, CBC, ANEU, ADIFF, MG, BMP, HFP #### [address] [address] Chloride [Moles/Vol] 107 mmol/L Normal 98-110 [facility] Comment on above: Performed By: #### G FR, CBC, ANEU, ADIFF, MG, BMP, HFP #### [address] [address] CO2 [Moles/Vol] 20 mmol/L Low 22-32 [facility] Comment on above: Performed By: #### G FR, CBC, ANEU, ADIFF, MG, BMP, HFP #### [place] [address] Creatinine [Mass/Vol] 1.47 mg/dL High 0.60-1.40 [facility] Comment on above: Result Comment: Test ing performed on [employer] analyzer using enzymatic creatinine methodology. Performed By: #### G FR, CBC, ANEU, ADIFF, MG, BMP, HFP #### [place] [address] Electrolyte Balance 14.0 mEq/L Normal 4.0-15.0 [facility] Comment on above: Performed By: #### G FR, CBC, ANEU, ADIFF, MG, BMP, HFP #### [place] [address] Glucose [Mass/Vol] 175 mg/dL High 82-115 [facility] Comment on above: Performed By: #### G FR, CBC, ANEU, ADIFF, MG, BMP, HFP #### [place] [id number] Potassium [Moles/Vol] 4.2 mmol/L Normal 3.5-5.0 [facility] Comment on above: Performed By: #### G FR, CBC, ANEU, ADIFF, MG, BMP, HFP #### [place] [id number] Sodium [Moles/Vol] 141 mmol/L Normal 136-145 [facility] Comment on above: Performed By: #### G FR, CBC, ANEU, ADIFF, MG, BMP, HFP #### [place] [id number] Urea nitrogen [Mass/Vol] 15.0 mg/dL Normal 8.0-22.0 [facility] Comment on above: Performed By: #### G FR, CBC, ANEU, ADIFF, MG, BMP, HFP #### [place] [id number] CBCon 01-05-2025 Erythrocyte distribution width (RBC) [Ratio] 15.4 % Normal 11.5-15.5 [facility] Comment on above: Performed By: #### G FR, CBC, ANEU, ADIFF, MG, BMP, HFP #### [place] [address] Hematocrit (Bld) [Volume fraction] 32.1 % Low 40.0-52.0 [facility] Comment on above: Performed By: #### G FR, CBC, ANEU, ADIFF, MG, BMP, HFP #### [place] [address] Hgb 10.5 G/dL Low 13.0-17.5 [facility] Comment on above: Performed By: #### G FR, CBC, ANEU, ADIFF, MG, BMP, HFP #### [place] [address] MCH (RBC) [Entitic mass] 29.0 pg Normal 27.0-33.0 [facility] Comment on above: Performed By: #### G FR, CBC, ANEU, ADIFF, MG, BMP, HFP #### [place] [address] MCHC 32.7 G/dL Normal 32.0-36.0 [facility] Comment on above: Performed By: #### G FR, CBC, ANEU, ADIFF, MG, BMP, HFP #### [place] [address] MCV (RBC) [Entitic vol] 88.7 fL Normal 81.0-100.0 [facility] Comment on above: Performed By: #### G FR, CBC, ANEU, ADIFF, MG, BMP, HFP #### [place] [address] Platelet 171 10 3/mcL Normal 150-450 [facility] Comment on above: Performed By: #### G FR, CBC, ANEU, ADIFF, MG, BMP, HFP #### [place] [address] Platelet mean volume (Bld) [Entitic vol] 11.1 fL High 6.4-10.5 [facility] Comment on above: Performed By: #### G FR, CBC, ANEU, ADIFF, MG, BMP, HFP #### [address] [address] RBC 3.62 10 6/mcL Low 4.50-6.00 [facility] Comment on above: Performed By: #### G FR, CBC, ANEU, ADIFF, MG, BMP, HFP #### [place] [address] WBC 7.1 10 3/mcL Normal 4.5-10.8 [facility] Comment on above: Performed By: #### G FR, CBC, ANEU, ADIFF, MG, BMP, HFP #### [place] [address] HFPon 01-05-2025 Bili Indirect 1.2 mg/dL Normal 0.1-10.0 [facility] Comment on above: Performed By: #### G FR, CBC, ANEU, ADIFF, MG, BMP, HFP #### [place] [address] Albumin Level 2.8 G/dL Low 3.2-4.8 [facility] Comment on above: Performed By: #### G FR, CBC, ANEU, ADIFF, MG, BMP, HFP #### [place] [address] Albumin/Globulin [Mass ratio] 0.8 {ratio} Low 0.9-1.6 [facility] Comment on above: Performed By: #### G FR, CBC, ANEU, ADIFF, MG, BMP, HFP #### [place] [address] ALP [Catalytic activity/Vol] 104 U/L Normal 38-126 [facility] Comment on above: Performed By: #### G FR, CBC, ANEU, ADIFF, MG, BMP, HFP #### [place] [address] ALT [Catalytic activity/Vol] 25 U/L Normal 12-55 [facility] Comment on above: Performed By: #### G FR, CBC, ANEU, ADIFF, MG, BMP, HFP #### [place] [address] AST [Catalytic activity/Vol] 41 U/L High 8-34 [facility] Comment on above: Performed By: #### G FR, CBC, ANEU, ADIFF, MG, BMP, HFP #### [place] [address] Bili Direct 0.5 mg/dL High 0.0-0.4 [facility] Comment on above: Result Comment: Use of this assay is not recommended for patients undergoing treatment with eltrombopag due to the potential for falsely elevated results. Performed By: #### G FR, CBC, ANEU, ADIFF, MG, BMP, HFP #### [place] [address] Bili Total 1.70 mg/dL High 0.20-1.20 [facility] Comment on above: Result Comment: Use of this assay is not recommended for patients undergoing treatment with eltrombopag due to the potential for falsely elevated results. Performed By: #### G FR, CBC, ANEU, ADIFF, MG, BMP, HFP #### [place] [address] Globulin 3.5 G/dL Normal 2.5-4.2 [facility] Comment on above: Performed By: #### G FR, CBC, ANEU, ADIFF, MG, BMP, HFP #### [place] [address] Total Protein 6.3 G/dL Normal 5.7-8.2 [facility] Comment on above: Performed By: #### G FR, CBC, ANEU, ADIFF, MG, BMP, HFP #### [place] [address] LABORATORYOrdered By: SYSTEM SYSTEM on 01-05-2025 Troponin I.cardiac DL <= 0.01 ng/mL [Mass/Vol] 3734 ng/L High 0 - 54 ng/L AH ADM SS Comment on above: Interpretive Data: High Sensitive Troponin I Reference Ranges: Female: 0-34 ng/L Male: 0-54 ng/L Testing performed on [employer] IM analyzer using direct chemiluminescent technology. MGon 01-05-2025 Magnesium [Mass/Vol] 2.0 mg/dL Normal 1.6-2.4 [facility] Comment on above: Performed By: #### G FR, CBC, ANEU, ADIFF, MG, BMP, HFP #### [address] [address] TROPHSon 01-05-2025 High Sensitivity Troponin I 3734 ng/L High 0-54 [facility] Comment on above: Result Comment: High Sensitive Troponin I Reference Ranges: Female: 0-34 ng/L Male: 0-54 ng/L Testing performed on [employer] IM analyzer using direct chemiluminescent technology. Performed By: #### G FR, CBC, ANEU, ADIFF, MG, BMP, HFP #### [address] [address] XR CHEST 1 VIEWon 01-05-2025 XR CHEST [...] 01/05/2025 2:09:48 PM Ordering Provider: COREY Nickerson [facility] .Auto Diffon 01-04-2025 Basophil, Absolute 0.0 10 3/mcL Normal 0.0-0.3 [facility] Comment on above: Performed By: #### G FR, CBC, ANEU, ADIFF, MG, BMP, HFP #### [address] [address] Basophils/100 WBC (Bld) 0.4 % Normal 0.0-2.5 [facility] Comment on above: Performed By: #### G FR, CBC, ANEU, ADIFF, MG, BMP, HFP #### [address] [address] Eosinophil, Absolute 0.1 10 3/mcL Normal 0.0-0.7 [facility] Comment on above: Performed By: #### G FR, CBC, ANEU, ADIFF, MG, BMP, HFP #### [address] [address] Eosinophils/100 WBC (Bld) 2.5 % Normal 0.0-6.0 [facility] Comment on above: Performed By: #### G FR, CBC, ANEU, ADIFF, MG, BMP, HFP #### [address] [address] Lymphocyte, Absolute 0.8 10 3/mcL Low 0.9-4.3 [facility] Comment on above: Performed By: #### G FR, CBC, ANEU, ADIFF, MG, BMP, HFP #### [address] [address] Lymphocytes/100 WBC (Bld) 15.8 % Low 20.0-40.0 [facility] Comment on above: Performed By: #### G FR, CBC, ANEU, ADIFF, MG, BMP, HFP #### [address] [address] Monocyte, Absolute 0.6 10 3/mcL Normal 0.1-1.4 [facility] Comment on above: Performed By: #### G FR, CBC, ANEU, ADIFF, MG, BMP, HFP #### [address] [address] Monocytes/100 WBC (Bld) 11.6 % Normal 2.0-13.0 [facility] [facility] Comment on above: Performed By: #### G FR, CBC, ANEU, ADIFF, MG, BMP, HFP #### [address] [address] Neutrophils/100 WBC (Bld) 69.7 % Normal 50.0-75.0 [facility] Comment on above: Performed By: #### G FR, CBC, ANEU, ADIFF, MG, BMP, HFP #### [address] [address] .GFRon 01-04-2025 Estimated Glomerular Filtration Rate 54 ml/min/1.73sqm Normal [facility] Comment on above: Result Comment: [...] CBC, ANEU, ADIFF, MG, BMP, HFP #### [place] [address] .NEUABSon 01-04-2025 Neutrophil, Absolute 3.6 10 3/mcL Normal 2.3-8.1 [facility] Comment on above: Performed By: #### G FR, CBC, ANEU, ADIFF, MG, BMP, HFP #### [place] [address] A1Con 01-04-2025 Glucose [Mass/Vol] 171 mg/dL Normal [facility] Comment on above: Result Comment: Kala mated Average Glucose calculated by equation ((28.7xA1C)-46.7) Estimated average glucose (eAG) is a calculated value from Hemoglobin A1C and is technical service representative of the average blood glucose level in the last 2-3 month period. Normal range: less than 114 mg/dL Performed By: #### G FR, CBC, ANEU, ADIFF, MG, BMP, HFP #### [place] [address] HbA1c (Bld) [Mass fraction] 7.6 % High 4.0-6.0 [facility] Comment on above: Performed By: #### G FR, CBC, ANEU, ADIFF, MG, BMP, HFP #### [place] [address] APTTon 09-04-2025 aPTT Coag (Bld) [Time] 33.2 s Normal 25.0-35.0 [facility] Comment on above: Result Comment: For Heparin anticoagulation therapy, the recommended therapeutic range is: 54-77 seconds (APTT Correlation with Anti-Xa therapeutic range of 0.3-0.7 units/ml). PLEASE REFERENCE THE PHARMACY PROTOCOL FOR DOSING. Performed By: #### G FR, CBC, ANEU, ADIFF, MG, BMP, HFP #### [address] [address] [facility] BUN/Creatinine Ratio 9.7 ratio Low 10.0-22.0 [facility] Comment on above: Performed By: #### G FR, CBC, ANEU, ADIFF, MG, BMP, HFP #### [place] [id number] Calcium [Mass/Vol] 8.4 mg/dL Low 8.7-10.4 [facility] Comment on above: Performed By: #### G FR, CBC, ANEU, ADIFF, MG, BMP, HFP #### [place] [id number] Chloride [Moles/Vol] 109 mmol/L Normal 98-110 [facility] Comment on above: Performed By: #### G FR, CBC, ANEU, ADIFF, MG, BMP, HFP #### [address] [address] CO2 [Moles/Vol] 22 mmol/L Normal 22-32 [facility] Comment on above: Performed By: #### G FR, CBC, ANEU, ADIFF, MG, BMP, HFP #### [address] [address] Creatinine [Mass/Vol] 1.34 mg/dL Normal 0.60-1.40 [facility] Comment on above: Result Comment: Test ing performed on [employer] analyzer using enzymatic creatinine methodology. Performed By: #### G FR, CBC, ANEU, ADIFF, MG, BMP, HFP #### [address] [address] Electrolyte Balance 11.0 mEq/L Normal 4.0-15.0 [facility] Comment on above: Performed By: #### G FR, CBC, ANEU, ADIFF, MG, BMP, HFP #### [place] [id number] Glucose [Mass/Vol] 131 mg/dL High 82-115 [facility] Comment on above: Performed By: #### G FR, CBC, ANEU, ADIFF, MG, BMP, HFP #### [place] [id number] Potassium [Moles/Vol] 3.7 mmol/L Normal 3.5-5.0 [facility] Comment on above: Performed By: #### G FR, CBC, ANEU, ADIFF, MG, BMP, HFP #### [place] [id number] Sodium [Moles/Vol] 142 mmol/L Normal 136-145 [facility] Comment on above: Performed By: #### G FR, CBC, ANEU, ADIFF, MG, BMP, HFP #### [place] [address] Urea nitrogen [Mass/Vol] 13.0 mg/dL Normal 8.0-22.0 [facility] Comment on above: Performed By: #### G FR, CBC, ANEU, ADIFF, MG, BMP, HFP #### [address] [address] CBCon 01-04-2025 Erythrocyte distribution width (RBC) [Ratio] 15.1 % Normal 11.5-15.5 [facility] Comment on above: Performed By: #### G FR, CBC, ANEU, ADIFF, MG, BMP, HFP #### [place] [id number] Hematocrit (Bld) [Volume fraction] 30.1 % Low 40.0-52.0 [facility] Comment on above: Performed By: #### G FR, CBC, ANEU, ADIFF, MG, BMP, HFP #### [place] [id number] Hgb 9.8 G/dL Low 13.0-17.5 [facility] Comment on above: Performed By: #### G FR, CBC, ANEU, ADIFF, MG, BMP, HFP #### [place] [address] MCH (RBC) [Entitic mass] 28.5 pg Normal 27.0-33.0 [facility] Comment on above: Performed By: #### G FR, CBC, ANEU, ADIFF, MG, BMP, HFP #### [place] [address] MCHC 32.5 G/dL Normal 32.0-36.0 [facility] Comment on above: Performed By: #### G FR, CBC, ANEU, ADIFF, MG, BMP, HFP #### [place] [address] MCV (RBC) [Entitic vol] 87.6 fL Normal 81.0-100.0 [facility] Comment on above: Performed By: #### G FR, CBC, ANEU, ADIFF, MG, BMP, HFP #### [place] [address] Platelet 132 10 3/mcL Low 150-450 [facility] Comment on above: Performed By: #### G FR, CBC, ANEU, ADIFF, MG, BMP, HFP #### [place] [address] Platelet mean volume (Bld) [Entitic vol] 11.1 fL High 6.4-10.5 [facility] Comment on above: Performed By: #### G FR, CBC, ANEU, ADIFF, MG, BMP, HFP #### [place] [address] RBC 3.43 10 6/mcL Low 4.50-6.00 [facility] Comment on above: Performed By: #### G FR, CBC, ANEU, ADIFF, MG, BMP, HFP #### [place] [address] WBC 5.2 10 3/mcL Normal 4.5-10.8 [facility] Comment on above: Performed By: #### G FR, CBC, ANEU, ADIFF, MG, BMP, HFP #### [address] [place], [place] [address] DIMERon 01-04-2025 D-Dimer <200 Normal 0-230 [facility] Comment on above: Result Comment: [...] 01-04-2025 Bili Indirect 1.0 mg/dL Normal 0.1-10.0 [facility] Comment on above: Performed By: #### G FR, CBC, ANEU, ADIFF, MG, BMP, HFP #### [address] [address] Albumin Level 2.7 G/dL Low 3.2-4.8 [facility] Comment on above: Performed By: #### G FR, CBC, ANEU, ADIFF, MG, BMP, HFP #### [address] [address] Albumin/Globulin [Mass ratio] 0.9 {ratio} Normal 0.9-1.6 [facility] Comment on above: Performed By: #### G FR, CBC, ANEU, ADIFF, MG, BMP, HFP #### [address] [address] ALP [Catalytic activity/Vol] 97 U/L Normal 38-126 [facility] Comment on above: Performed By: #### G FR, CBC, ANEU, ADIFF, MG, BMP, HFP #### [address] [address] ALT [Catalytic activity/Vol] 17 U/L Normal 12-55 [facility] Comment on above: Performed By: #### G FR, CBC, ANEU, ADIFF, MG, BMP, HFP #### [place] [address] AST [Catalytic activity/Vol] 42 U/L High 8-34 [facility] Comment on above: Performed By: #### G FR, CBC, ANEU, ADIFF, MG, BMP, HFP #### [place] [address] Bili Direct 0.4 mg/dL Normal 0.0-0.4 [facility] Comment on above: Result Comment: Use of this assay is not recommended for patients undergoing treatment with eltrombopag due to the potential for falsely elevated results. Performed By: #### G FR, CBC, ANEU, ADIFF, MG, BMP, HFP #### [place] [address] Bili Total 1.40 mg/dL High 0.20-1.20 [facility] Comment on above: Result Comment: Use of this assay is not recommended for patients undergoing treatment with eltrombopag due to the potential for falsely elevated results. Performed By: #### G FR, CBC, ANEU, ADIFF, MG, BMP, HFP #### [place] [address] Globulin 3.1 G/dL Normal 2.5-4.2 [facility] Comment on above: Performed By: #### G FR, CBC, ANEU, ADIFF, MG, BMP, HFP #### [place] [address] Total Protein 5.8 G/dL Normal 5.7-8.2 [facility] Comment on above: Performed By: #### G FR, CBC, ANEU, ADIFF, MG, BMP, HFP #### [place] [address] LABORATORYOrdered By: Jose Mariscal on 01-04-2025 D-Dimer [...] (DVT) and pulmonary embolism (PE). LABORATORYOrdered By: [employer] SYSTEM on 01-04-2025 aPTT Coag (Bld) [Time] [...] calculated value from Hemoglobin A1C and is technical service representative of the average blood glucose level [...] 01-04-2025 Cholesterol [Mass/Vol] 131 mg/dL Normal 50-199 [facility] Comment on above: Result Comment: Chol esterol Reference Interval: Less than 200 Desirable 200-239 Borderline high risk 240 and above High risk Performed By: #### G FR, CBC, ANEU, ADIFF, MG, BMP, HFP #### [address] [address] Cholesterol in HDL [Mass/Vol] 27 mg/dL Low 40-59 [facility] Comment on above: Performed By: #### G FR, CBC, ANEU, ADIFF, MG, BMP, HFP #### [address] [address] Cholesterol in LDL [Mass/Vol] 60 mg/dL Normal 0-129 [facility] Comment on above: Performed By: #### G FR, CBC, ANEU, ADIFF, MG, BMP, HFP #### [address] [address] Triglyceride [Mass/Vol] 219 mg/dL High 3-149 [facility] Comment on above: Performed By: #### G FR, CBC, ANEU, ADIFF, MG, BMP, HFP #### [place] [address] MGon 01-04-2025 Magnesium [Mass/Vol] 2.0 mg/dL Normal 1.6-2.4 [facility] Comment on above: Performed By: #### G FR, CBC, ANEU, ADIFF, MG, BMP, HFP #### [address] [address] TROPHSon 01-04-2025 High Sensitivity Troponin I 6698 ng/L High 0-54 [facility] Comment on above: Result Comment: High Sensitive Troponin I Reference Ranges: Female: 0-34 ng/L Male: 0-54 ng/L Testing performed on [employer] analyzer using direct chemiluminescent technology. Performed By: #### G FR, CBC, ANEU, ADIFF, MG, BMP, HFP #### [place] [id number] TSHRon 01-04-2025 TSH 2.347 mIU/mL Normal 0.550-4.78 0 [facility] Comment on above: Performed By: #### G FR, CBC, ANEU, ADIFF, MG, BMP, HFP #### [address] [address] XR CHEST 1 VIEWon 01-04-2025 XR CHEST [...] 01/04/2025 5:39:33 AM Ordering Provider: EVA Nickerson [facility] .Auto Diffon 01-03-2025 Basophil, Absolute 0.0 10 3/mcL Normal 0.0-0.3 [facility] Comment on above: Performed By: #### G FR, CBC, ANEU, ADIFF, MG, BMP, HFP #### [address] [address] Basophils/100 WBC (Bld) 0.3 % Normal 0.0-2.5 [facility] Comment on above: Performed By: #### G FR, CBC, ANEU, ADIFF, MG, BMP, HFP #### [address] [address] Eosinophil, Absolute 0.1 10 3/mcL Normal 0.0-0.7 [facility] Comment on above: Performed By: #### G FR, CBC, ANEU, ADIFF, MG, BMP, HFP #### [address] [address] Eosinophils/100 WBC (Bld) 2.0 % Normal 0.0-6.0 [facility] Comment on above: Performed By: #### G FR, CBC, ANEU, ADIFF, MG, BMP, HFP #### [address] [address] Lymphocyte, Absolute 0.8 10 3/mcL Low 0.9-4.3 [facility] Comment on above: Performed By: #### G FR, CBC, ANEU, ADIFF, MG, BMP, HFP #### [address] [address] Lymphocytes/100 WBC (Bld) 14.5 % Low 20.0-40.0 [facility] Comment on above: Performed By: #### G FR, CBC, ANEU, ADIFF, MG, BMP, HFP #### [address] [address] Monocyte, Absolute 0.7 10 3/mcL Normal 0.1-1.4 [facility] Comment on above: Performed By: #### G FR, CBC, ANEU, ADIFF, MG, BMP, HFP #### [address] [address] Monocytes/100 WBC (Bld) 11.4 % Normal 2.0-13.0 [facility] Comment on above: Performed By: #### G FR, CBC, ANEU, ADIFF, MG, BMP, HFP #### [address] [address] Neutrophils/100 WBC (Bld) 71.8 % Normal 50.0-75.0 [facility] Comment on above: Performed By: #### G FR, CBC, ANEU, ADIFF, MG, BMP, HFP #### [address] [address] Basophil, Absolute 0.0 10 3/mcL Normal 0.0-0.3 [facility] Comment on above: Performed By: #### G FR, CBC, ANEU, ADIFF, MG, BMP, HFP #### [address] [address] Basophils/100 WBC (Bld) 0.3 % Normal 0.0-2.5 [facility] Comment on above: Performed By: #### G FR, CBC, ANEU, ADIFF, MG, BMP, HFP #### [address] [address] Eosinophil, Absolute 0.1 10 3/mcL Normal 0.0-0.7 [facility] Comment on above: Performed By: #### G FR, CBC, ANEU, ADIFF, MG, BMP, HFP #### [address] [address] Eosinophils/100 WBC (Bld) 1.9 % Normal 0.0-6.0 [facility] Comment on above: Performed By: #### G FR, CBC, ANEU, ADIFF, MG, BMP, HFP #### [address] [address] Lymphocyte, Absolute 0.9 10 3/mcL Normal 0.9-4.3 [facility] Comment on above: Performed By: #### G FR, CBC, ANEU, ADIFF, MG, BMP, HFP #### [address] [address] Lymphocytes/100 WBC (Bld) 13.9 % Low 20.0-40.0 [facility] Comment on above: Performed By: #### G FR, CBC, ANEU, ADIFF, MG, BMP, HFP #### [address] [address] Monocyte, Absolute 0.8 10 3/mcL Normal 0.1-1.4 [facility] Comment on above: Performed By: #### G FR, CBC, ANEU, ADIFF, MG, BMP, HFP #### [address] [address] Monocytes/100 WBC (Bld) 11.6 % Normal 2.0-13.0 [facility] Comment on above: Performed By: #### G FR, CBC, ANEU, ADIFF, MG, BMP, HFP #### [address] [address] Neutrophils/100 WBC (Bld) 72.3 % Normal 50.0-75.0 [facility] Comment on above: Performed By: #### G FR, CBC, ANEU, ADIFF, MG, BMP, HFP #### [address] [address] .GFRon 01-03-2025 Estimated Glomerular Filtration Rate 51 ml/min/1.73sqm Normal [facility] Comment on above: Result Comment: [...] CBC, ANEU, ADIFF, MG, BMP, HFP #### [place] [address] Estimated Glomerular Filtration Rate 49 ml/min/1.73sqm Normal [facility] Comment on above: Result Comment: [...] CBC, ANEU, ADIFF, MG, BMP, HFP #### [address] [address] .NEUABSon 01-03-2025 Neutrophil, Absolute 4.1 10 3/mcL Normal 2.3-8.1 [facility] Comment on above: Performed By: #### G FR, CBC, ANEU, ADIFF, MG, BMP, HFP #### [address] [address] Neutrophil, Absolute 4.8 10 3/mcL Normal 2.3-8.1 [facility] Comment on above: Performed By: #### G FR, CBC, ANEU, ADIFF, MG, BMP, HFP #### [address] [address] 12 Lead EKGon 01-03-2025 12 Lead EKG Normal [facility] APTTon 01-03-2025 aPTT Coag (Bld) [Time] 30.4 s Normal 25.0-35.0 [facility] Comment on above: Result Comment: For Heparin anticoagulation therapy, the recommended therapeutic range is: 54-77 seconds (APTT Correlation with Anti-Xa therapeutic range of 0.3-0.7 units/ml). PLEASE REFERENCE THE PHARMACY PROTOCOL FOR DOSING. Performed By: #### G FR, CBC, ANEU, ADIFF, MG, BMP, HFP #### [address] [address] BMPon 01-03-2025 BUN/Creatinine Ratio 10.0 ratio Normal 10.0-22.0 [facility] Comment on above: Performed By: #### G FR, CBC, ANEU, ADIFF, MG, BMP, HFP #### [address] [address] Calcium [Mass/Vol] 9.1 mg/dL Normal 8.7-10.4 [facility] Comment on above: Performed By: #### G FR, CBC, ANEU, ADIFF, MG, BMP, HFP #### [address] [address] Chloride [Moles/Vol] 109 mmol/L Normal 98-110 [facility] Comment on above: Performed By: #### G FR, CBC, ANEU, ADIFF, MG, BMP, HFP #### [address] [address] CO2 [Moles/Vol] 23 mmol/L Normal 22-32 [facility] Comment on above: Performed By: #### G FR, CBC, ANEU, ADIFF, MG, BMP, HFP #### [address] [address] Creatinine [Mass/Vol] 1.40 mg/dL Normal 0.60-1.40 [facility] Comment on above: Result Comment: Test ing performed on [employer] analyzer using enzymatic creatinine methodology. Performed By: #### G FR, CBC, ANEU, ADIFF, MG, BMP, HFP #### [address] [address] Electrolyte Balance 9.0 mEq/L Normal 4.0-15.0 [facility] Comment on above: Performed By: #### G FR, CBC, ANEU, ADIFF, MG, BMP, HFP #### [place] [id number] Glucose [Mass/Vol] 118 mg/dL High 82-115 [facility] Comment on above: Performed By: #### G FR, CBC, ANEU, ADIFF, MG, BMP, HFP #### [address] [address] Potassium [Moles/Vol] 3.7 mmol/L Normal 3.5-5.0 [facility] Comment on above: Performed By: #### G FR, CBC, ANEU, ADIFF, MG, BMP, HFP #### [address] [address] Sodium [Moles/Vol] 141 mmol/L Normal 136-145 [facility] Comment on above: Performed By: #### G FR, CBC, ANEU, ADIFF, MG, BMP, HFP #### [address] [address] Urea nitrogen [Mass/Vol] 14.0 mg/dL Normal 8.0-22.0 [facility] Comment on above: Performed By: #### G FR, CBC, ANEU, ADIFF, MG, BMP, HFP #### [address] [address] Basic Metabolic Profile (BMP )on 01-03-2025 BUN/CRE 10.4 RATIO Normal 10-20 [facility] Comment on above: Performed By: #### L 100.0100, L501.4021, L500.2500 ####[facility] [id number] [place], [address] Calcium [Mass/Vol] 8.8 mg/dL Normal 7.6-11.0 [facility] Comment on above: Performed By: #### L 100.0100, L501.4021, L500.2500 ####[facility] [address] [place], [address] Chloride [Moles/Vol] 106 mmol/L Normal 98-108 [facility] Comment on above: Performed By: #### L 100.0100, L501.4021, L500.2500 ####[facility] [address] [place], [address] CO2 [Moles/Vol] 20.0 mmol/L Low 21.0-32.0 [facility] Comment on above: Performed By: #### L 100.0100, L501.4021, L500.2500 ####[facility] [address] [place], [address] Creatinine [Mass/Vol] 1.52 mg/dL High 0.70-1.20 [facility] Comment on above: Performed By: #### L 100.0100, L501.4021, L500.2500 ####[facility] [address] [place], [address] ECRCL 46.43 ml/min Low 50-250 [facility] Comment on above: Performed By: #### L 100.0100, L501.4021, L500.2500 ####[facility] [address] [place], [address] GAP 12 Normal 5-15 [facility] Comment on above: Performed By: #### L 100.0100, L501.4021, L500.2500 ####[facility] [address] [place], [address] GFR/1.73 sq M.predicted among non-blacks MDRD (S/P/Bld) [Vol rate/Area] 46 mL/min/{1.73_m2} Low >60 [facility] Comment on above: Result Comment: mL/m in/1.73m2 CKD-EPI Creatinine Equation (2020) Performed By: #### L 100.0100, L501.4021, L500.2500 ####[facility] [address] [place], [address] Glucose [Mass/Vol] 220 mg/dL High 70-99 [facility] Comment on above: Performed By: #### L 100.0100, L501.4021, L500.2500 ####[facility] [address] [place], [address] Potassium [Moles/Vol] 4.0 mmol/L Normal 3.3-5.1 [facility] Comment on above: Performed By: #### L 100.0100, L501.4021, L500.2500 ####[facility] [address] [place], [address] Sodium [Moles/Vol] 138 mmol/L Normal 133-145 [facility] Comment on above: Performed By: #### L 100.0100, L501.4021, L500.2500 ####[facility] [address] [place], [address] Urea nitrogen [Mass/Vol] 16 mg/dL Normal 4-19 [facility] Comment on above: Performed By: #### L 100.0100, L501.4021, L500.2500 ####[facility] [address] [place], [address] CBCon 01-03-2025 Erythrocyte distribution width (RBC) [Ratio] 15.2 % Normal 11.5-15.5 [facility] Comment on above: Performed By: #### G FR, CBC, ANEU, ADIFF, MG, BMP, HFP #### [place] [address] Hematocrit (Bld) [Volume fraction] 31.3 % Low 40.0-52.0 [facility] Comment on above: Performed By: #### G FR, CBC, ANEU, ADIFF, MG, BMP, HFP #### [place] [address] Hgb 10.2 G/dL Low 13.0-17.5 [facility] Comment on above: Performed By: #### G FR, CBC, ANEU, ADIFF, MG, BMP, HFP #### [place] [address] MCH (RBC) [Entitic mass] 28.5 pg Normal 27.0-33.0 [facility] Comment on above: Performed By: #### G FR, CBC, ANEU, ADIFF, MG, BMP, HFP #### [place] [address] MCHC 32.6 G/dL Normal 32.0-36.0 [facility] Comment on above: Performed By: #### G FR, CBC, ANEU, ADIFF, MG, BMP, HFP #### [place] [address] MCV (RBC) [Entitic vol] 87.6 fL Normal 81.0-100.0 [facility] Comment on above: Performed By: #### G FR, CBC, ANEU, ADIFF, MG, BMP, HFP #### [place] [address] Platelet 143 10 3/mcL Low 150-450 [facility] Comment on above: Performed By: #### G FR, CBC, ANEU, ADIFF, MG, BMP, HFP #### [place] [address] Platelet mean volume (Bld) [Entitic vol] 10.5 fL Normal 6.4-10.5 [facility] Comment on above: Performed By: #### G FR, CBC, ANEU, ADIFF, MG, BMP, HFP #### [place] [address] RBC 3.57 10 6/mcL Low 4.50-6.00 [facility] Comment on above: Performed By: #### G FR, CBC, ANEU, ADIFF, MG, BMP, HFP #### [place] [address] WBC 5.8 10 3/mcL Normal 4.5-10.8 [facility] Comment on above: Performed By: #### G FR, CBC, ANEU, ADIFF, MG, BMP, HFP #### [place] [address] Erythrocyte distribution width (RBC) [Ratio] 15.9 % High 11.5-15.5 [facility] Comment on above: Performed By: #### G FR, CBC, ANEU, ADIFF, MG, BMP, HFP #### [place] [address] Hematocrit (Bld) [Volume fraction] 33.2 % Low 40.0-52.0 [facility] Comment on above: Performed By: #### G FR, CBC, ANEU, ADIFF, MG, BMP, HFP #### [place] [address] Hgb 10.7 G/dL Low 13.0-17.5 [facility] Comment on above: Performed By: #### G FR, CBC, ANEU, ADIFF, MG, BMP, HFP #### [place] [address] MCH (RBC) [Entitic mass] 28.7 pg Normal 27.0-33.0 [facility] Comment on above: Performed By: #### G FR, CBC, ANEU, ADIFF, MG, BMP, HFP #### [place] [address] MCHC 32.3 G/dL Normal 32.0-36.0 [facility] Comment on above: Performed By: #### G FR, CBC, ANEU, ADIFF, MG, BMP, HFP #### [facility] [address] [place], [place] [address] MCV (RBC) [Entitic vol] 89.0 fL Normal 81.0-100.0 [facility] Comment on above: Performed By: #### G FR, CBC, ANEU, ADIFF, MG, BMP, HFP #### [address] [address] Platelet 154 10 3/mcL Normal 150-450 [facility] Comment on above: Performed By: #### G FR, CBC, ANEU, ADIFF, MG, BMP, HFP #### [address] [address] Platelet mean volume (Bld) [Entitic vol] 10.3 fL Normal 6.4-10.5 [facility] Comment on above: Performed By: #### G FR, CBC, ANEU, ADIFF, MG, BMP, HFP #### [address] [address] RBC 3.73 10 6/mcL Low 4.50-6.00 [facility] Comment on above: Performed By: #### G FR, CBC, ANEU, ADIFF, MG, BMP, HFP #### [address] [address] WBC 6.7 10 3/mcL Normal 4.5-10.8 [facility] Comment on above: Performed By: #### G FR, CBC, ANEU, ADIFF, MG, BMP, HFP #### [address] [address] CBC W/Diff, Automatedon 09-0 3-2024 Absolute Lymph 0.70 X10 3/uL Low 0.83-4.51 [facility] Comment on above: Performed By: #### L 100.0100, L501.4021, L500.2500 ####[facility] [address] [place], [address] Absolute Neut 5.8 X10 3/uL Normal 2.0-7.7 [facility] Comment on above: Performed By: #### L 100.0100, L501.4021, L500.2500 ####[facility] [address] [place], [address] Basophils/100 WBC (Bld) 0.1 % Normal 0-1 [facility] Comment on above: Performed By: #### L 100.0100, L501.4021, L500.2500 ####[facility] [id number] [place], [address] Eosinophils/100 WBC (Bld) 1.1 % Normal 0-5 [facility] Comment on above: Performed By: #### L 100.0100, L501.4021, L500.2500 ####[facility] [id number] [place], [address] Erythrocyte distribution width (RBC) [Ratio] 15.7 % High 11.6-14.6 [facility] Comment on above: Performed By: #### L 100.0100, L501.4021, L500.2500 ####[facility] [id number] [place], [address] Hematocrit (Bld) [Volume fraction] 33.4 % Low 40-54 [facility] Comment on above: Performed By: #### L 100.0100, L501.4021, L500.2500 ####[facility] [address] [place], [address] Hemoglobin (Bld) [Mass/Vol] 10.5 g/dL Low 13.0-16.5 [facility] Comment on above: Performed By: #### L 100.0100, L501.4021, L500.2500 ####[facility] [address] [place], [address] IG% 0.400 Normal 0.0-0.9 [facility] Comment on above: Result Comment: IG% - Immature Granulocytes (promyelocytes, myelocytes andmetamyelocytes) > 1% indicates that a LEFT SHIFT is Present. Performed By: #### L 100.0100, L501.4021, L500.2500 ####[facility] [address] [place], [address] Lymphocytes/100 WBC (Bld) 9.6 % Low 19-41 [facility] Comment on above: Performed By: #### L 100.0100, L501.4021, L500.2500 ####[facility] [address] [place], [address] MCH (RBC) [Entitic mass] 28.9 pg Normal 27.0-32.0 [facility] Comment on above: Performed By: #### L 100.0100, L501.4021, L500.2500 ####[facility] [address] [place], [address] MCHC (RBC) [Mass/Vol] 31.4 g/dL Low 32-36 [facility] Comment on above: Performed By: #### L 100.0100, L501.4021, L500.2500 ####[facility] [address] [place], [address] MCV (RBC) [Entitic vol] 92.0 fL Normal 80-94 [facility] Comment on above: Performed By: #### L 100.0100, L501.4021, L500.2500 ####[facility] [address] [place], [address] Monocytes/100 WBC (Bld) 8.9 % Normal 0-10 [facility] Comment on above: Performed By: #### L 100.0100, L501.4021, L500.2500 ####[facility] [address] [place], [address] Neutrophils/100 WBC (Bld) 79.9 % High 47-70 [facility] Comment on above: Performed By: #### L 100.0100, L501.4021, L500.2500 ####[facility] [address] [place], [address] Nucleated RBC (Bld) [#/Vol] 0 10*3/uL Normal 0-5 [facility] Comment on above: Performed By: #### L 100.0100, L501.4021, L500.2500 ####[facility] [address] [place], [address] Platelet mean volume (Bld) [Entitic vol] 12.7 fL High 6.2-12.0 [facility] Comment on above: Performed By: #### L 100.0100, L501.4021, L500.2500 ####[facility] [address] [place], [address] Platelets (Bld) [#/Vol] 155 10*3/uL Normal 150-450 [facility] Comment on above: Performed By: #### L 100.0100, L501.4021, L500.2500 ####[facility] [address] [place], [address] RBC (Bld) [#/Vol] 3.63 10*6/uL Low 4.6-6.2 [facility] Comment on above: Performed By: #### L 100.0100, L501.4021, L500.2500 ####[facility] [address] [place], [address] RDW SD 51.9 fl High 35.1-43.9 [facility] Comment on above: Performed By: #### L 100.0100, L501.4021, L500.2500 ####[facility] [address] [place], [address] WBC (Bld) [#/Vol] 7.3 10*3/uL Normal 4.4-11.0 [facility] Comment on above: Performed By: #### L 100.0100, L501.4021, L500.2500 ####[facility] [address] [place], [address] [facility] 01-03-2025 Albumin Level 3.0 G/dL Low 3.2-4.8 [facility] Comment on above: Performed By: #### G FR, CBC, ANEU, ADIFF, MG, BMP, HFP #### [place] [address] Albumin/Globulin [Mass ratio] 0.8 {ratio} Low 0.9-1.6 [facility] Comment on above: Performed By: #### G FR, CBC, ANEU, ADIFF, MG, BMP, HFP #### [address] [address] ALP [Catalytic activity/Vol] 107 U/L Normal 38-126 [facility] Comment on above: Performed By: #### G FR, CBC, ANEU, ADIFF, MG, BMP, HFP #### [place] [id number] ALT [Catalytic activity/Vol] 20 U/L Normal 12-55 [facility] Comment on above: Performed By: #### G FR, CBC, ANEU, ADIFF, MG, BMP, HFP #### [place] [id number] AST [Catalytic activity/Vol] 51 U/L High 8-34 [facility] Comment on above: Performed By: #### G FR, CBC, ANEU, ADIFF, MG, BMP, HFP #### [place] [id number] Bili Total 1.10 mg/dL Normal 0.20-1.20 [facility] Comment on above: Result Comment: Use of this assay is not recommended for patients undergoing treatment with eltrombopag due to the potential for falsely elevated results. Performed By: #### G FR, CBC, ANEU, ADIFF, MG, BMP, HFP #### [place] [id number] BUN/Creatinine Ratio 9.0 ratio Low 10.0-22.0 [facility] Comment on above: Performed By: #### G FR, CBC, ANEU, ADIFF, MG, BMP, HFP #### [address] [address] Calcium [Mass/Vol] 9.0 mg/dL Normal 8.7-10.4 [facility] Comment on above: Performed By: #### G FR, CBC, ANEU, ADIFF, MG, BMP, HFP #### [address] [address] Chloride [Moles/Vol] 109 mmol/L Normal 98-110 [facility] Comment on above: Performed By: #### G FR, CBC, ANEU, ADIFF, MG, BMP, HFP #### [address] [address] CO2 [Moles/Vol] 25 mmol/L Normal 22-32 [facility] Comment on above: Performed By: #### G FR, CBC, ANEU, ADIFF, MG, BMP, HFP #### [address] [address] Creatinine [Mass/Vol] 1.44 mg/dL High 0.60-1.40 [facility] Comment on above: Result Comment: Test ing performed on [employer] analyzer using enzymatic creatinine methodology. Performed By: #### G FR, CBC, ANEU, ADIFF, MG, BMP, HFP #### [address] [address] Electrolyte Balance 9.0 mEq/L Normal 4.0-15.0 [facility] Comment on above: Performed By: #### G FR, CBC, ANEU, ADIFF, MG, BMP, HFP #### [address] [address] Globulin 3.6 G/dL Normal 2.5-4.2 [facility] Comment on above: Performed By: #### G FR, CBC, ANEU, ADIFF, MG, BMP, HFP #### [address] [address] Glucose [Mass/Vol] 134 mg/dL High 82-115 [facility] Comment on above: Performed By: #### G FR, CBC, ANEU, ADIFF, MG, BMP, HFP #### [address] [address] Potassium [Moles/Vol] 4.5 mmol/L Normal 3.5-5.0 [facility] Comment on above: Performed By: #### G FR, CBC, ANEU, ADIFF, MG, BMP, HFP #### [address] [address] Sodium [Moles/Vol] 143 mmol/L Normal 136-145 [facility] Comment on above: Performed By: #### G FR, CBC, ANEU, ADIFF, MG, BMP, HFP #### [address] [address] Total Protein 6.6 G/dL Normal 5.7-8.2 [facility] Comment on above: Performed By: #### G FR, CBC, ANEU, ADIFF, MG, BMP, HFP #### [address] [address] Urea nitrogen [Mass/Vol] 13.0 mg/dL Normal 8.0-22.0 [facility] Comment on above: Performed By: #### G FR, CBC, ANEU, ADIFF, MG, BMP, HFP #### [address] [address] Chest 1 View (Portable)on Chest 1 View (Portable) Normal [facility] Emergency Department Summary on 01-03-2025 Emergency Department Summary Normal [facility] L501.4021on 01-03-2025 Trop T High Sen 1948 ng/L Invalid Interpretation Code <=22 [facility] Comment on above: Result Comment: Crit ical Result(s) Called at: by:??LUIS MAYS Resultsread back by same. Performed By: #### L 100.0100, L501.4021, L500.2500 ####[facility] [address] [place], [place], [id number] LABORATORYOrdered By: SYSTEM SYSTEM on 01-03-2025 aPTT [...] Comment on above: Interpretive Data: Alison bourne [employer] (CHEST, 1992, 102:312S-25S) [...] ng/L Male: 0-54 ng/L Testing performed on [employer] analyzer using direct chemiluminescent technology. TSH Qn 3.371 mIU/mL Normal 0.550 - 4.780 mIU/mL ADM SS Lactate [Moles/Vol] 3.5 mmol/L High 0.5 - 2. 2 mmol/L ADM SS Natriuretic peptide.B prohormone N-Terminal IA [Mass/Vol] 4522 pg/mL High 0 - 1800 pg/mL ADM SS LACon 01-03-2025 Lactic Acid Lvl 1.7 mmol/L Normal 0.5-2.2 [facility] Comment on above: Order Comment: Order ed secondary to Lactic Acid result greater than or equal to 2.0 Performed By: #### G FR, CBC, ANEU, ADIFF, MG, BMP, HFP #### [place] [address] Lactic Acid Lvl 3.5 mmol/L High 0.5-2.2 [facility] Comment on above: Performed By: #### G FR, CBC, ANEU, ADIFF, MG, BMP, HFP #### [place] [address] MGon 01-03-2025 Magnesium [Mass/Vol] 1.9 mg/dL Normal 1.6-2.4 [facility] Comment on above: Performed By: #### G FR, CBC, ANEU, ADIFF, MG, BMP, HFP #### [place] [address] Magnesium [Mass/Vol] 2.0 mg/dL Normal 1.6-2.4 [facility] Comment on above: Performed By: #### G FR, CBC, ANEU, ADIFF, MG, BMP, HFP #### [place] [address] PBNPon 01-03-2025 Natriuretic peptide B (Bld) [Mass/Vol] 4739 pg/mL High 0-1800 [facility] Comment on above: Performed By: #### G FR, CBC, ANEU, ADIFF, MG, BMP, HFP #### [place] [address] Natriuretic peptide B (Bld) [Mass/Vol] 4522 pg/mL High 0-1800 [facility] Comment on above: Performed By: #### G FR, CBC, ANEU, ADIFF, MG, BMP, HFP #### [place] [address] PROon 01-03-2025 INR Coag (PPP) [Relative time] 1.3 {INR} Normal [facility] Comment on above: Result Comment: [employer] (CHEST, 1992, 102:312S-25S) recommended therapeutic range for oral anticoagulant therapy is: LOW RISK: Prophylaxis of venous thrombosis INR: 2.0-3.0 Treatment of pulmonary embolism 2.0-3.0 Prevention of systemic embolism 2.0-3.0 HIGH RISK: Mechanical prosthetic valves 2.5-3.5 Performed By: #### G FR, CBC, ANEU, ADIFF, MG, BMP, HFP #### [address] [address] PT Coag (PPP) [Time] 14.9 s High 9.0-14.4 [facility] Comment on above: Result Comment: Effe ctive 11/15/07, Protime results may be affected by some antibiotics (i.e. Ciprofloxacin, Azithromycin, Bactrim) which may potentiate the action of oral anticoagulants, with further increases in Protime/INR. Performed By: #### G FR, CBC, ANEU, ADIFF, MG, BMP, HFP #### [place] [id number] TROPHSon 01-03-2025 High Sensitivity Troponin I 7058 ng/L High 0-54 [facility] Comment on above: Result Comment: High Sensitive Troponin I Reference Ranges: Female: 0-34 ng/L Male: 0-54 ng/L Testing performed on [employer] analyzer using direct chemiluminescent technology. Performed By: #### G FR, CBC, ANEU, ADIFF, MG, BMP, HFP #### [place] [address] TSHon 01-03-2025 TSH 3.371 mIU/mL Normal 0.550-4.78 0 [facility] Comment on above: Performed By: #### G FR, CBC, ANEU, ADIFF, MG, BMP, HFP #### [place] [address] Troponin T HS 2 HRon 025 Trop T High Sen 1731 ng/L Invalid Interpretation Code <=22 [facility] Comment on above: Result Comment: Crit ical Result(s) Called at: by: NAJMA MAYS??Resultsread back by same. Performed By: #### L 499.0042 ####[facility] [address] [place], [address] Trop T High Sen 1965 ng/L Invalid Interpretation Code <=22 [facility] Comment on above: Result Comment: INCO RRECTLY RECEIVEDCritical Result(s) Called at: by:LUIS MAYS??Results readback by same. Performed By: #### L 499.0042 ####[facility] [address] [place], [place], [id number] Troponin T HS 4 HRon 025 Trop T High Sen 1771 ng/L Invalid Interpretation Code <=22 [facility] Comment on above: Result Comment: Crit ical Result(s) Called at: by:??KEVIN SIMENTAL Results readback by same. Performed By: #### L 499.0043 ####[facility] [address] [place], [place], [id number] 12 Lead EKGon 01-01-2025 12 Lead EKG Normal [facility] Absolute lymphocyte countOrd ered By: Shaan Hirsch on 01-01-2025 Lymphocytes Auto (Unsp spec) [#/Vol] 0.81 10*3/uL Low 0.83-4.51 [facility] Anion gap in Serum or Plasma Ordered By: Shaan Hirsch on 01-01-2025 Anion gap [Moles/Vol] 11 mmol/L 5-15 [facility] Automated lymphocyte count a s percentage of total leukocytesOrdered By: Shaan Hirsch on 01-01-2025 Lymphocytes/100 WBC Auto (Unsp spec) 12.6 % Low 19-41 [facility] BUN/creatinine ratioOrdered By: Shaan Hirsch on 01-01-2025 Urea nitrogen/Creatinine [Mass ratio] 10.7 mg/mg 10-20 [facility] Basic Metabolic Profile (BMP )on 01-01-2025 BUN/CRE 10.7 RATIO Normal - [facility] Comment on above: Performed By: #### L 501.4021, L100.0100, L500.2500 ####[facility] [address] [place], [place], [id number] Calcium [Mass/Vol] 8.9 mg/dL Normal 7.6-11.0 [facility] Comment on above: Performed By: #### L 501.4021, L100.0100, L500.2500 ####[facility] [address] [place], [address] Chloride [Moles/Vol] 106 mmol/L Normal 98-108 [facility] Comment on above: Performed By: #### L 501.4021, L100.0100, L500.2500 ####[facility] [address] [place], [address] CO2 [Moles/Vol] 22.5 mmol/L Normal 21.0-32.0 [facility] Comment on above: Performed By: #### L 501.4021, L100.0100, L500.2500 ####[facility] [address] [place], [address] Creatinine [Mass/Vol] 1.36 mg/dL High 0.70-1.20 [facility] Comment on above: Performed By: #### L 501.4021, L100.0100, L500.2500 ####[facility] [address] [place], [address] ECRCL 52.44 ml/min Normal 50-250 [facility] Comment on above: Performed By: #### L 501.4021, L100.0100, L500.2500 ####[facility] [address] [place], [address] GAP 11 Normal 5-15 [facility] Comment on above: Performed By: #### L 501.4021, L100.0100, L500.2500 ####[facility] [address] [place], [address] GFR/1.73 sq M.predicted among non-blacks MDRD (S/P/Bld) [Vol rate/Area] 53 mL/min/{1.73_m2} Low >60 [facility] Comment on above: Result Comment: mL/m in/1.73m2 CKD-EPI Creatinine Equation (2020) Performed By: #### L 501.4021, L100.0100, L500.2500 ####[facility] [address] [place], [address] Glucose [Mass/Vol] 142 mg/dL High 70-99 [facility] Comment on above: Performed By: #### L 501.4021, L100.0100, L500.2500 ####[facility] [address] [place], [address] Potassium [Moles/Vol] 4.2 mmol/L Normal 3.3-5.1 [facility] Comment on above: Performed By: #### L 501.4021, L100.0100, L500.2500 ####[facility] [address] [place], [address] Sodium [Moles/Vol] 140 mmol/L Normal 133-145 [facility] Comment on above: Performed By: #### L 501.4021, L100.0100, L500.2500 ####[facility] [address] [place], [address] Urea nitrogen [Mass/Vol] 15 mg/dL Normal 4-19 [facility] Comment on above: Performed By: #### L 501.4021, L100.0100, L500.2500 ####[facility] [address] [place], [address] Basophil percentageOrdered B y: Shaan Hirsch on 01-01-2025 Basophils/100 WBC (Bld) 0.3 % 0-1 [facility] CBC W/Diff, Automatedon Absolute Lymph 0.81 X10 3/uL Low 0.83-4.51 [facility] Comment on above: Performed By: #### L 501.4021, L100.0100, L500.2500 ####[facility] [address] [place], [address] Absolute Neut 4.8 X10 3/uL Normal 2.0-7.7 [facility] Comment on above: Performed By: #### L 501.4021, L100.0100, L500.2500 ####[facility] [address] [place], [address] Basophils/100 WBC (Bld) 0.3 % Normal 0-1 [facility] Comment on above: Performed By: #### L 501.4021, L100.0100, L500.2500 ####[facility] [address] [place], [address] Eosinophils/100 WBC (Bld) 1.6 % Normal 0-5 [facility] Comment on above: Performed By: #### L 501.4021, L100.0100, L500.2500 ####[facility] [address] [place], [address] Erythrocyte distribution width (RBC) [Ratio] 15.5 % High 11.6-14.6 [facility] Comment on above: Performed By: #### L 501.4021, L100.0100, L500.2500 ####[facility] [address] [place], [address] Hematocrit (Bld) [Volume fraction] 35.9 % Low 40-54 [facility] Comment on above: Performed By: #### L 501.4021, L100.0100, L500.2500 ####[facility] [address] [place], [address] Hemoglobin (Bld) [Mass/Vol] 11.1 g/dL Low 13.0-16.5 [facility] Comment on above: Performed By: #### L 501.4021, L100.0100, L500.2500 ####[facility] [address] [place], [address] IG% 0.300 Normal 0.0-0.9 [facility] Comment on above: Result Comment: IG% - Immature Granulocytes (promyelocytes, myelocytes andmetamyelocytes) > 1% indicates that a LEFT SHIFT is Present. Performed By: #### L 501.4021, L100.0100, L500.2500 ####[facility] [address] [place], [address] Lymphocytes/100 WBC (Bld) 12.6 % Low 19-41 [facility] Comment on above: Performed By: #### L 501.4021, L100.0100, L500.2500 ####[facility] [address] [place], [address] MCH (RBC) [Entitic mass] 28.4 pg Normal 27.0-32.0 [facility] Comment on above: Performed By: #### L 501.4021, L100.0100, L500.2500 ####[facility] [address] [place], [address] MCHC (RBC) [Mass/Vol] 30.9 g/dL Low 32-36 [facility] Comment on above: Performed By: #### L 501.4021, L100.0100, L500.2500 ####[facility] [address] [place], [address] MCV (RBC) [Entitic vol] 91.8 fL Normal 80-94 [facility] Comment on above: Performed By: #### L 501.4021, L100.0100, L500.2500 ####[facility] [address] [place], [address] Monocytes/100 WBC (Bld) 9.7 % Normal 0-10 [facility] Comment on above: Performed By: #### L 501.4021, L100.0100, L500.2500 ####[facility] [address] [place], [address] Neutrophils/100 WBC (Bld) 75.5 % High 47-70 [facility] Comment on above: Performed By: #### L 501.4021, L100.0100, L500.2500 ####[facility] [address] [place], [address] Nucleated RBC (Bld) [#/Vol] 0 10*3/uL Normal 0-5 [facility] Comment on above: Performed By: #### L 501.4021, L100.0100, L500.2500 ####[facility] [address] [place], [address] Platelet mean volume (Bld) [Entitic vol] 12.8 fL High 6.2-12.0 [facility] Comment on above: Performed By: #### L 501.4021, L100.0100, L500.2500 ####[facility] [address] [place], [address] Platelets (Bld) [#/Vol] 142 10*3/uL Low 150-450 [facility] Comment on above: Performed By: #### L 501.4021, L100.0100, L500.2500 ####[facility] [address] [place], [address] RBC (Bld) [#/Vol] 3.91 10*6/uL Low 4.6-6.2 [facility] Comment on above: Performed By: #### L 501.4021, L100.0100, L500.2500 ####[facility] [address] [place], [address] RDW SD 50.7 fl High 35.1-43.9 [facility] Comment on above: Performed By: #### L 501.4021, L100.0100, L500.2500 ####[facility] [address] [place], [address] WBC (Bld) [#/Vol] 6.4 10*3/uL Normal 4.4-11.0 [facility] Comment on above: Performed By: #### L 501.4021, L100.0100, L500.2500 ####[facility] [address] [place], [address] Carbon dioxide, total [Moles /volume] in Central venous bloodOrdered By: Shaan Hirsch on 01-01-2025 CO2 [Moles/Vol] 22.5 mmol/L 21.0-32.0 [facility] Chest 1 View (Portable)on Chest 1 View (Portable) Normal [facility] Chloride assayOrdered By: Charlie Hirsch on 01-01-2025 Chloride [Moles/Vol] 106 mmol/L 98-108 [facility] Emergency Department Summary on 01-01-2025 Emergency Department Summary Normal [facility] Eosinophil percentageOrdered By: Shaan Hirsch on 01-01-2025 Eosinophils/100 WBC (Bld) 1.6 % 0-5 [facility] Erythrocyte distribution wid th ratioOrdered By: Shaan Hirsch on 01-01-2025 Erythrocyte distribution width (RBC) [Ratio] 15.5 % High 11.6-14.6 [facility] Erythrocyte distribution wid th standard deviationOrdered By: Shaan Hirsch on 01-01-2025 Erythrocyte distribution width (RBC) [Ratio] 50.7 fl High 35.1-43.9 [facility] Glomerular filtration rate ( GFR) estimation/1.73 sq m using serum, plasma, or whole bOrdered By: Shaan Hirsch on 01-01-2025 GFR/1.73 sq M.predicted among non-blacks MDRD (S/P/Bld) [Vol rate/Area] 53 mL/min/{1.73_m2} Low >60 [facility] Hematocrit Auto (Bld) [Volum e fraction]Ordered By: Shaan Hirsch on 01-01-2025 Hematocrit (Bld) [Volume fraction] 35.9 % Low 40-54 [facility] Hemoglobin measurementOrdere d By: Shaan Hirsch on 01-01-2025 Hemoglobin (Bld) [Mass/Vol] 11.1 g/dL Low 13.0-16.5 [facility] Immature granulocytes/100 WB C Auto (Bld)Ordered By: Shaan Hirsch on 01-01-2025 Immature granulocytes/100 WBC (Bld) 0.300 % 0.0-0.9 [facility] L501.4021on 01-01-2025 Trop T High Sen 119 ng/L Invalid Interpretation Code <=22 [facility] Comment on above: Result Comment: Crit ical Result(s) Called at 01/01/2025-10:06 by Seymour [place].??Results read back by same. Performed By: #### L 501.4021, L100.0100, L500.2500 ####[facility] [address] [place], [address] MCV (mean corpuscular volume ) determinationOrdered By: Shaan Hirsch on 01-01-2025 MCV (RBC) [Entitic vol] 91.8 fL 80-94 [facility] Mean corpuscular hemoglobin (MCH) determinationOrdered By: Shaan Hirsch on 01-01-2025 MCH (RBC) [Entitic mass] 28.4 pg 27.0-32.0 [facility] Monocyte percentageOrdered B y: Shaan Hirsch on 01-01-2025 Monocytes/100 WBC (Bld) 9.7 % 0-10 [facility] Neutrophil percentageOrdered By: Shaantrung Hirsch on 01-01-2025 Neutrophils/100 WBC (Bld) 75.5 % High 47-70 [facility] Platelet countOrdered By: Charlie Hirsch on 01-01-2025 Platelets (Bld) [#/Vol] 142 10*3/uL Low 150-450 [facility] Potassium measurement (mass/ volume)Ordered By: Shaan Hirsch on 01-01-2025 Potassium (Unsp spec) [Mass/Vol] 4.2 mmol/L 3.3-5.1 [facility] RBC Auto (Bld) [#/Vol]Ordere d By: Shaan Hirsch on 01-01-2025 RBC (Bld) [#/Vol] 3.91 10*6/uL Low 4.6-6.2 [facility] Serum creatinine measurement (mass/volume)Ordered By: Shaan Hirsch on 01-01-2025 Creatinine [Mass/Vol] 1.36 mg/dL High 0.70-1.20 [facility] Serum glucose measurement (m ass/volume)Ordered By: Shaan Hirsch on 01-01-2025 Glucose [Mass/Vol] 142 mg/dL High 70-99 [facility] Serum or plasma calcium francine urement (mass/volume)Ordered By: Shaan Hirsch on 01-01-2025 Calcium [Mass/Vol] 8.9 mg/dL 7.6-11.0 [facility] Serum or plasma urea nitroge n measurement (mass/volume)Ordered By: Shaan Hirsch on 01-01-2025 Urea nitrogen [Mass/Vol] 15 mg/dL 4-19 [facility] Sodium levelOrdered By: Shaan Hirsch on 01-01-2025 Sodium [Moles/Vol] 140 mmol/L 133-145 [facility] Troponin T HS 2 HRon 025 Trop T High Sen 106 ng/L Invalid Interpretation Code <=22 [facility] Comment on above: Result Comment: Crit ical Result(s) Called at 01/01/2025-11:44 by Seymour [place].??Results read back by same. Performed By: #### L 499.0042 ####[facility] [id number] [place], [place], [address] Troponin T HS 4 HRon 025 Trop T High Sen Normal <=22 [facility] Comment on above: Result Comment: Canc elled via OM: Order cancelled - Patient discharged Performed By: #### L 499.0043 ####[facility] [id number] [place], [address] Troponin T.cardiac [Mass/vol ume] in Serum or Plasma by High sensitivity methodOrdered By: Shaan Hirsch on 01-01-2025 Troponin T.cardiac High sensitivity method [Mass/Vol] 106 ng/L High <22 [facility] Troponin T.cardiac High sensitivity method [Mass/Vol] 119 ng/L High <22 [facility] White blood cell (WBC) count Ordered By: Shaan Hirsch on 01-01-2025 WBC (Bld) [#/Vol] 6.4 10*3/uL 4.4-11.0 [facility] Absolute lymphocyte countOrd ered By: Boyd Rock on 12-28-2024 Lymphocytes Auto (Unsp spec) [#/Vol] 1.02 10*3/uL 0.83-4.51 [facility] Anion gap in Serum or Plasma Ordered By: Boyd Rock on 12-28-2024 Anion gap [Moles/Vol] 10 mmol/L 5-15 [facility] Automated lymphocyte count a s percentage of total leukocytesOrdered By: Boyd Rock on 12-28-2024 Lymphocytes/100 WBC Auto (Unsp spec) 17.4 % Low 19-41 [facility] BUN/creatinine ratioOrdered By: Boyd Rock on 12-28-2024 Urea nitrogen/Creatinine [Mass ratio] 7.5 mg/mg Low 10-20 [facility] Basophil percentageOrdered B y: Boyd Rock on 12-28-2024 Basophils/100 WBC (Bld) 0.3 % 0-1 [facility] Carbon dioxide, total [Moles /volume] in Central venous bloodOrdered By: Boyd Rock on 12-28-2024 CO2 [Moles/Vol] 22.0 mmol/L 21.0-32.0 [facility] Chloride assayOrdered By: Susanna Rock on 12-28-2024 Chloride [Moles/Vol] 109 mmol/L High 98-108 [facility] Eosinophil percentageOrdered By: Boyd Rock on 12-28-2024 Eosinophils/100 WBC (Bld) 2.4 % 0-5 [facility] Erythrocyte distribution wid th ratioOrdered By: Boyd Rock on 12-28-2024 Erythrocyte distribution width (RBC) [Ratio] 14.8 % High 11.6-14.6 [facility] Erythrocyte distribution wid th standard deviationOrdered By: Boyd Rock on 12-28-2024 Erythrocyte distribution width (RBC) [Ratio] 48.7 fl High 35.1-43.9 [facility] Glomerular filtration rate ( GFR) estimation/1.73 sq m using serum, plasma, or whole bOrdered By: Boyd Rock on 12-28-2024 GFR/1.73 sq M.predicted among non-blacks MDRD (S/P/Bld) [Vol rate/Area] 52 mL/min/{1.73_m2} Low >60 [facility] Hematocrit Auto (Bld) [Volum e fraction]Ordered By: Boyd Rock on 12-28-2024 Hematocrit (Bld) [Volume fraction] 30.9 % Low 40-54 [facility] Hemoglobin measurementOrdere d By: Boyd Rock on 12-28-2024 Hemoglobin (Bld) [Mass/Vol] 9.8 g/dL Low 13.0-16.5 [facility] Immature granulocytes/100 WB C Auto (Bld)Ordered By: Boyd Rock on 12-28-2024 Immature granulocytes/100 WBC (Bld) 0.300 % 0.0-0.9 [facility] MCV (mean corpuscular volume ) determinationOrdered By: Boyd Rock on 12-28-2024 MCV (RBC) [Entitic vol] 91.2 fL 80-94 [facility] Mean corpuscular hemoglobin (MCH) determinationOrdered By: garrybergheimbrittni Rock on 12-28-2024 MCH (RBC) [Entitic mass] 28.9 pg 27.0-32.0 [facility] Monocyte percentageOrdered B y: Boyd Rock on 12-28-2024 Monocytes/100 WBC (Bld) 9.9 % 0-10 [facility] Neutrophil percentageOrdered By: [facility] on 12-28-2024 Neutrophils/100 WBC (Bld) 69.7 % 47-70 [facility] Platelet countOrdered By: Susanna Rock on 12-28-2024 Platelets (Bld) [#/Vol] 112 10*3/uL Low 150-450 [facility] Potassium measurement (mass/ volume)Ordered By: Boyd Rock on 12-28-2024 Potassium (Unsp spec) [Mass/Vol] 3.8 mmol/L 3.3-5.1 [facility] RBC Auto (Bld) [#/Vol]Ordere d By: Boyd Rock on 12-28-2024 RBC (Bld) [#/Vol] 3.39 10*6/uL Low 4.6-6.2 [facility] Serum creatinine measurement (mass/volume)Ordered By: Boyd Rock on 12-28-2024 Creatinine [Mass/Vol] 1.39 mg/dL High 0.70-1.20 [facility] Serum glucose measurement (m ass/volume)Ordered By: Boyd Rock on 12-28-2024 Glucose [Mass/Vol] 131 mg/dL High 70-99 [facility] Serum or plasma calcium francine urement (mass/volume)Ordered By: Boyd Rock on 12-28-2024 Calcium [Mass/Vol] 7.9 mg/dL 7.6-11.0 [facility] Serum or plasma urea nitroge n measurement (mass/volume)Ordered By: Boyd Rock on 12-28-2024 Urea nitrogen [Mass/Vol] 10 mg/dL 4-19 [facility] Sodium levelOrdered By: Lupe parkinson Garrymiveronica on 12-28-2024 Sodium [Moles/Vol] 141 mmol/L 133-145 [facility] White blood cell (WBC) count Ordered By: Susannagarryabbeybrittni Castañedamiveronica on 12-28-2024 WBC (Bld) [#/Vol] 5.9 10*3/uL 4.4-11.0 [facility] Bilirubin Test strip Ql (U)O rdered By: Boyd Rock on 12-27-2024 Bilirubin Ql (U) Negative Negative [facility] Ketones Test strip Ql (U)Ord ered By: Boyd Rock on 12-27-2024 Ketones Ql (U) Negative Negative [facility] Nitrite Test strip Ql (U)Ord ered By: Boyd Rock on 12-27-2024 Nitrite Ql (U) Negative Negative [facility] Protein Test strip Ql (U)Ord ered By: Boyd Rock on 12-27-2024 Protein Ql (U) Negative Negative [facility] Urine clarityOrdered By: Anastacio Rock on 12-27-2024 Clarity (U) Cloudy Clear [facility] Urine color determinationOrd ered By: Boyd Rock on 12-27-2024 Color (U) Straw Yellow [facility] Urine cultureOrdered By: Anastacio Rock on 12-27-2024 Bacteria identified Cx Nom (U) Staphylococcus aureus Abnormal [facility] Urine glucose detectionOrder ed By: Boyd Rock on 12-27-2024 Glucose Ql (U) 1000 mg/dl High Normal [facility] Urine leukocyte esterase det ection by dipstickOrdered By: Boyd Rock on 12-27-2024 Leukocyte esterase Test strip Ql (U) 100 /ul High Negative [facility] Urine pHOrdered By: Grace Rock on 12-27-2024 pH (U) 6.0 [pH] 5.0 - 8.0 [facility] Urine specific gravity measu rementOrdered By: Boyd Rock on 12-27-2024 Specific gravity (U) [Rel density] 1.010 1.002-1.03 0 [facility] Urine urobilinogen measureme ntOrdered By: Boyd Rock on 12-27-2024 Urobilinogen Ql (U) Normal mg/dl Normal [facility] Absolute lymphocyte countOrd ered By: Eladio Melendez on 12-26-2024 Lymphocytes Auto (Unsp spec) [#/Vol] 0.80 10*3/uL Low 0.83-4.51 [facility] Anion gap in Serum or Plasma Ordered By: Eladio Melendez on 12-26-2024 Anion gap [Moles/Vol] 9 mmol/L 5-15 [facility] Automated lymphocyte count a s percentage of total leukocytesOrdered By: Eladio Melendez on 12-26-2024 Lymphocytes/100 WBC Auto (Unsp spec) 12.6 % Low 19-41 [facility] BUN/creatinine ratioOrdered By: Eladio Melendez on 12-26-2024 Urea nitrogen/Creatinine [Mass ratio] 6.2 mg/mg Low 10- [facility] Basic Metabolic Profile (BMP )on 12-26-2024 BUN/CRE 6.2 RATIO Low - [facility] Comment on above: Performed By: #### L 501.2300, L500.2500, L501.5200, L100.0100 ####[facility] [id number] [place], [address] Calcium [Mass/Vol] 8.0 mg/dL Normal 7.6-11.0 [facility] Comment on above: Performed By: #### L 501.2300, L500.2500, L501.5200, L100.0100 ####[facility] [address] [place], [address] Chloride [Moles/Vol] 109 mmol/L High 98-108 [facility] Comment on above: Performed By: #### L 501.2300, L500.2500, L501.5200, L100.0100 ####[facility] [address] [place], [address] CO2 [Moles/Vol] 22.2 mmol/L Normal 21.0-32.0 [facility] Comment on above: Performed By: #### L 501.2300, L500.2500, L501.5200, L100.0100 ####[facility] [address] [place], [address] Creatinine [Mass/Vol] 1.33 mg/dL High 0.70-1.20 [facility] Comment on above: Performed By: #### L 501.2300, L500.2500, L501.5200, L100.0100 ####[facility] [address] [place], [address] ECRCL 52.07 ml/min Normal 50-250 [facility] Comment on above: Performed By: #### L 501.2300, L500.2500, L501.5200, L100.0100 ####[facility] [address] [place], [address] GAP 9 Normal 5-15 [facility] Comment on above: Performed By: #### L 501.2300, L500.2500, L501.5200, L100.0100 ####[facility] [address] [place], [address] GFR/1.73 sq M.predicted among non-blacks MDRD (S/P/Bld) [Vol rate/Area] 54 mL/min/{1.73_m2} Low >60 [facility] Comment on above: Result Comment: mL/m in/1.73m2 CKD-EPI Creatinine Equation (2020) Performed By: #### L 501.2300, L500.2500, L501.5200, L100.0100 ####[facility] [address] [place], [address] Glucose [Mass/Vol] 124 mg/dL High 70-99 [facility] Comment on above: Performed By: #### L 501.2300, L500.2500, L501.5200, L100.0100 ####[facility] [address] [place], [address] Potassium [Moles/Vol] 3.7 mmol/L Normal 3.3-5.1 [facility] Comment on above: Performed By: #### L 501.2300, L500.2500, L501.5200, L100.0100 ####[facility] [address] [place], [address] Sodium [Moles/Vol] 140 mmol/L Normal 133-145 [facility] Comment on above: Performed By: #### L 501.2300, L500.2500, L501.5200, L100.0100 ####[facility] [address] [place], [address] Urea nitrogen [Mass/Vol] 8 mg/dL Normal 4-19 [facility] Comment on above: Performed By: #### L 501.2300, L500.2500, L501.5200, L100.0100 ####[facility] [address] [place], [address] Basophil percentageOrdered B y: Eladio Melendez on 12-26-2024 Basophils/100 WBC (Bld) 0.3 % 0-1 [facility] Bedside Glucoseon 12-26-2024 FINGERSTICK GLU 131 mg/dL High 74-106 [facility] Comment on above: Result Comment: WILDA GEMENT OF PATIENT CARE PER NURSING PROTOCOL Performed By: #### L 501.080 ####[facility] [address] [place], [address] FINGERSTICK GLU 132 mg/dL High 74-106 [facility] Comment on above: Result Comment: WILDA GEMENT OF PATIENT CARE PER NURSING PROTOCOL Performed By: #### L 501.080 ####[facility] [address] [place], [address] CBC W/Diff, Automatedon 12-02 PLT EST SLT DEC Normal ADEQ [facility] Comment on above: Performed By: #### L 501.2300, L500.2500, L501.5200, L100.0100 ####[facility] [address] [place], [address] Carbon dioxide, total [Moles /volume] in Central venous bloodOrdered By: Eladio Melendez on 12-26-2024 CO2 [Moles/Vol] 22.2 mmol/L 21.0-32.0 [facility] Chloride assayOrdered By: Magalie Melendez on 12-26-2024 Chloride [Moles/Vol] 109 mmol/L High 98-108 [facility] Eosinophil percentageOrdered By: Eladio Melendez on 12-26-2024 Eosinophils/100 WBC (Bld) 0.9 % 0-5 [facility] Erythrocyte distribution wid th ratioOrdered By: Eladio Melendez on 12-26-2024 Erythrocyte distribution width (RBC) [Ratio] 14.1 % 11.6-14.6 [facility] Erythrocyte distribution wid th standard deviationOrdered By: Eladio Melendez on 12-26-2024 Erythrocyte distribution width (RBC) [Ratio] 46.0 fl High 35.1-43.9 [facility] Glomerular filtration rate ( GFR) estimation/1.73 sq m using serum, plasma, or whole bOrdered By: Eladio Melendez on 12-26-2024 GFR/1.73 sq M.predicted among non-blacks MDRD (S/P/Bld) [Vol rate/Area] 54 mL/min/{1.73_m2} Low >60 [facility] Gl[facility] at [facility] deOrdered By: Eladio Melendez on 12-26-2024 Glucose [Mass/Vol] 131 mg/dL High 74-106 [facility] Hematocrit Auto (Bld) [Volum e fraction]Ordered By: Eladio Melendez on 12-26-2024 Hematocrit (Bld) [Volume fraction] 32.3 % Low 40-54 [facility] Hemoglobin measurementOrdere d By: Eladio Melendez on 12-26-2024 Hemoglobin (Bld) [Mass/Vol] 10.3 g/dL Low 13.0-16.5 [facility] Immature granulocytes/100 WB C Auto (Bld)Ordered By: Eladio Melendez on 12-26-2024 Immature granulocytes/100 WBC (Bld) 0.500 % 0.0-0.9 [facility] MCV (mean corpuscular volume ) determinationOrdered By: Eladio Melendez on 12-26-2024 MCV (RBC) [Entitic vol] 90.0 fL 80-94 [facility] Magnesiumon 12-26-2024 Magnesium [Mass/Vol] 1.7 mg/dL Normal 1.5-2.2 [facility] Comment on above: Performed By: #### L 501.2300, L500.2500, L501.5200, L100.0100 ####[facility] [id number] [place], [address] Magnesium measurement (mass/ volume)Ordered By: Eladio Melendez on 12-26-2024 Magnesium (Unsp spec) [Mass/Vol] 1.7 mg/dL 1.5-2.2 [facility] Mean corpuscular hemoglobin (MCH) determinationOrdered By: Eladio Melendez on 12-26-2024 MCH (RBC) [Entitic mass] 28.7 pg 27.0-32.0 [facility] Monocyte percentageOrdered B y: Eladio Melendez on 12-26-2024 Monocytes/100 WBC (Bld) 9.5 % 0-10 [facility] Neutrophil percentageOrdered By: Eladio Melendez on 12-26-2024 Neutrophils/100 WBC (Bld) 76.2 % High 47-70 [facility] Phosphoruson 12-26-2024 Phosphate [Mass/Vol] 2.2 mg/dL Low 2.7-4.5 [facility] Comment on above: Performed By: #### L 501.2300, L500.2500, L501.5200, L100.0100 ####[facility] [address] [place], [address] Platelet countOrdered By: Magalie Melendez on 12-26-2024 Platelets (Bld) [#/Vol] 92 10*3/uL Low 150-450 [facility] Platelet estimateOrdered By: Eladio Melendez on 12-26-2024 Platelets LM Ql (Bld) SLT DEC ADEQ [facility] Potassium measurement (mass/ volume)Ordered By: Eladio Melendez on 12-26-2024 Potassium (Unsp spec) [Mass/Vol] 3.7 mmol/L 3.3-5.1 [facility] RBC Auto (Bld) [#/Vol]Ordere d By: Eladio Melendez on 08-26-2025 RBC (Bld) [#/Vol] 3.59 10*6/uL Low 4.6-6.2 [facility] Serum creatinine measurement (mass/volume)Ordered By: Eladio Melendez on 12-26-2024 Creatinine [Mass/Vol] 1.33 mg/dL High 0.70-1.20 [facility] Serum glucose measurement (m ass/volume)Ordered By: Eladio Melendez on 12-26-2024 Glucose [Mass/Vol] 124 mg/dL High 70-99 [facility] Serum or plasma calcium francine urement (mass/volume)Ordered By: Eladio Melendez on 12-26-2024 Calcium [Mass/Vol] 8.0 mg/dL 7.6-11.0 [facility] Serum or plasma urea nitroge n measurement (mass/volume)Ordered By: Eladio Melendez on 12-26-2024 Urea nitrogen [Mass/Vol] 8 mg/dL 4-19 [facility] Sodium levelOrdered By: Fei Melendez on 12-26-2024 Sodium [Moles/Vol] 140 mmol/L 133-145 [facility] White blood cell (WBC) count Ordered By: Eladio Melendez on 12-26-2024 WBC (Bld) [#/Vol] 6.3 10*3/uL 4.4-11.0 [facility] 12 Lead EKGon 12-25-2024 12 Lead EKG Normal [facility] Basic Metabolic Profile (BMP )on 12-25-2024 BUN/CRE 6.6 RATIO Low 10-20 [facility] Comment on above: Performed By: #### L 100.0100, L500.2500, L501.2300, L501.5200 ####[facility] [id number] [place], [place], [id number] Calcium [Mass/Vol] 8.3 mg/dL Normal 7.6-11.0 [facility] Comment on above: Performed By: #### L 100.0100, L500.2500, L501.2300, L501.5200 ####[facility] [address] [place], [address] Chloride [Moles/Vol] 106 mmol/L Normal 98-108 [facility] Comment on above: Performed By: #### L 100.0100, L500.2500, L501.2300, L501.5200 ####[facility] [address] [place], [address] CO2 [Moles/Vol] 19.8 mmol/L Low 21.0-32.0 [facility] Comment on above: Performed By: #### L 100.0100, L500.2500, L501.2300, L501.5200 ####[facility] [address] [place], [address] Creatinine [Mass/Vol] 1.42 mg/dL High 0.70-1.20 [facility] Comment on above: Performed By: #### L 100.0100, L500.2500, L501.2300, L501.5200 ####[facility] [address] [place], [address] ECRCL 49.25 ml/min Low 50-250 [facility] Comment on above: Performed By: #### L 100.0100, L500.2500, L501.2300, L501.5200 ####[facility] [address] [place], [address] GAP 13 Normal 5-15 [facility] Comment on above: Performed By: #### L 100.0100, L500.2500, L501.2300, L501.5200 ####[facility] [address] [place], [address] GFR/1.73 sq M.predicted among non-blacks MDRD (S/P/Bld) [Vol rate/Area] 50 mL/min/{1.73_m2} Low >60 [facility] Comment on above: Result Comment: mL/m in/1.73m2 CKD-EPI Creatinine Equation (2020) Performed By: #### L 100.0100, L500.2500, L501.2300, L501.5200 ####[facility] [address] [place], [address] Glucose [Mass/Vol] 105 mg/dL High 70-99 [facility] Comment on above: Performed By: #### L 100.0100, L500.2500, L501.2300, L501.5200 ####[facility] [address] [place], [address] Potassium [Moles/Vol] 3.4 mmol/L Normal 3.3-5.1 [facility] Comment on above: Performed By: #### L 100.0100, L500.2500, L501.2300, L501.5200 ####[facility] [address] [place], [address] Sodium [Moles/Vol] 139 mmol/L Normal 133-145 [facility] Comment on above: Performed By: #### L 100.0100, L500.2500, L501.2300, L501.5200 ####[facility] [address] [place], [address] Urea nitrogen [Mass/Vol] 9 mg/dL Normal 4-19 [facility] Comment on above: Performed By: #### L 100.0100, L500.2500, L501.2300, L501.5200 ####[facility] [address] [place], [address] Bedside Glucoseon 12-25-2024 FINGERSTICK GLU 140 mg/dL High 74-106 [facility] Comment on above: Result Comment: WILDA BARROSO OF PATIENT CARE PER NURSING PROTOCOL Performed By: #### L 501.080 ####[facility] [address] [place], [address] FINGERSTICK GLU 81 mg/dL Normal 74-106 [facility] Comment on above: Result Comment: WILDA GEMENT OF PATIENT CARE PER NURSING PROTOCOL Performed By: #### L 501.080 ####[facility] [address] [place], [address] FINGERSTICK GLU 115 mg/dL High 74-106 [facility] Comment on above: Result Comment: WILDA GEMENT OF PATIENT CARE PER NURSING PROTOCOL Performed By: #### L 501.080 ####[facility] [address] [place], [address] FINGERSTICK GLU 102 mg/dL Normal 74-106 [facility] Comment on above: Result Comment: WILDA GEMENT OF PATIENT CARE PER NURSING PROTOCOL Performed By: #### L 501.080 ####[facility] [address] [place], [address] CBC W/Diff, Automatedon 12-02 Absolute Lymph 1.00 X10 3/uL Normal 0.83-4.51 [facility] Comment on above: Performed By: #### L 100.0100, L500.2500, L501.2300, L501.5200 ####[facility] [address] [place], [address] Absolute Neut 5.3 X10 3/uL Normal 2.0-7.7 [facility] Comment on above: Performed By: #### L 100.0100, L500.2500, L501.2300, L501.5200 ####[facility] [address] [place], [address] Basophils/100 WBC (Bld) 0.3 % Normal 0-1 [facility] Comment on above: Performed By: #### L 100.0100, L500.2500, L501.2300, L501.5200 ####[facility] [address] [place], [address] Eosinophils/100 WBC (Bld) 1.1 % Normal 0-5 [facility] Comment on above: Performed By: #### L 100.0100, L500.2500, L501.2300, L501.5200 ####[facility] [address] [place], [address] Erythrocyte distribution width (RBC) [Ratio] 14.2 % Normal 11.6-14.6 [facility] Comment on above: Performed By: #### L 100.0100, L500.2500, L501.2300, L501.5200 ####[facility] [address] [place], [address] Hematocrit (Bld) [Volume fraction] 30.7 % Low 40-54 [facility] Comment on above: Performed By: #### L 100.0100, L500.2500, L501.2300, L501.5200 ####[facility] [address] [place], [address] Hemoglobin (Bld) [Mass/Vol] 10.2 g/dL Low 13.0-16.5 [facility] Comment on above: Performed By: #### L 100.0100, L500.2500, L501.2300, L501.5200 ####[facility] [address] [place], [address] IG% 0.300 Normal 0.0-0.9 [facility] Comment on above: Result Comment: IG% - Immature Granulocytes (promyelocytes, myelocytes andmetamyelocytes) > 1% indicates that a LEFT SHIFT is Present. Performed By: #### L 100.0100, L500.2500, L501.2300, L501.5200 ####[facility] [address] [place], [address] Lymphocytes/100 WBC (Bld) 14.2 % Low 19-41 [facility] Comment on above: Performed By: #### L 100.0100, L500.2500, L501.2300, L501.5200 ####[facility] [address] [place], [address] MCH (RBC) [Entitic mass] 29.0 pg Normal 27.0-32.0 [facility] Comment on above: Performed By: #### L 100.0100, L500.2500, L501.2300, L501.5200 ####[facility] [address] [place], [address] MCHC (RBC) [Mass/Vol] 33.2 g/dL Normal 32-36 [facility] Comment on above: Performed By: #### L 100.0100, L500.2500, L501.2300, L501.5200 ####[facility] [address] [place], [address] MCV (RBC) [Entitic vol] 87.2 fL Normal 80-94 [facility] Comment on above: Performed By: #### L 100.0100, L500.2500, L501.2300, L501.5200 ####[facility] [address] [place], [address] Monocytes/100 WBC (Bld) 8.4 % Normal 0-10 [facility] Comment on above: Performed By: #### L 100.0100, L500.2500, L501.2300, L501.5200 ####[facility] [address] [place], [address] Neutrophils/100 WBC (Bld) 75.7 % High 47-70 [facility] Comment on above: Performed By: #### L 100.0100, L500.2500, L501.2300, L501.5200 ####[facility] [address] [place], [address] Nucleated RBC (Bld) [#/Vol] 0 10*3/uL Normal 0-5 [facility] Comment on above: Performed By: #### L 100.0100, L500.2500, L501.2300, L501.5200 ####[facility] [address] [place], [address] Platelet mean volume (Bld) [Entitic vol] 12.9 fL High 6.2-12.0 [facility] Comment on above: Performed By: #### L 100.0100, L500.2500, L501.2300, L501.5200 ####[facility] [address] [place], [address] Platelets (Bld) [#/Vol] 110 10*3/uL Low 150-450 [facility] Comment on above: Performed By: #### L 100.0100, L500.2500, L501.2300, L501.5200 ####[facility] [address] [place], [address] RBC (Bld) [#/Vol] 3.52 10*6/uL Low 4.6-6.2 [facility] Comment on above: Performed By: #### L 100.0100, L500.2500, L501.2300, L501.5200 ####[facility] [address] [place], [address] RDW SD 44.7 fl High 35.1-43.9 [facility] Comment on above: Performed By: #### L 100.0100, L500.2500, L501.2300, L501.5200 ####[facility] [address] [place], [address] WBC (Bld) [#/Vol] 7.0 10*3/uL Normal 4.4-11.0 [facility] Comment on above: Performed By: #### L 100.0100, L500.2500, L501.2300, L501.5200 ####[facility] [address] [place], [address] Colonoscopy Reporton 025 Colonoscopy Report Normal [facility] EGD Reporton 12-25-2024 EGD Report Normal [facility] Immunohistochemical Stainson 12-25-2024 Immunohistochemical Stains Normal [facility] Comment on above: Performed By: #### P IMHARRIS ####[facility] [address] [place], [address] MR/CON.PCM.GIon 12-25-2024 MR/CON.PCM.GI Normal [facility] MR/OP.PROVATon 12-25-2024 MR/OP.PROVAT Normal [facility] MR/OP.PROVAT Normal [facility] MR/POSTOP.ANEon 12-25-2024 MR/POSTOP.ANE Normal [facility] MR/[id number] 12-25-2024 MR/POSTOPAN2 Normal [facility] Magnesiumon 12-25-2024 Magnesium [Mass/Vol] 1.5 mg/dL Normal 1.5-2.2 [facility] Comment on above: Performed By: #### L 100.0100, L500.2500, L501.2300, L501.5200 ####[facility] [address] [place], [address] Phosphoruson 12-25-2024 Phosphate [Mass/Vol] 2.0 mg/dL Low 2.7-4.5 [facility] Comment on above: Performed By: #### L 100.0100, L500.2500, L501.2300, L501.5200 ####[facility] [address] [place], [address] Activated partial thrombopla stin time (aPTT) in platelet poor plasma by coagulation aOrdered By: Andrae Kennedy on 12-24-2024 aPTT Coag (PPP) [Time] 27.6 s 24.1-36.2 [facility] Basic Metabolic Profile (BMP )on 12-24-2024 BUN/CRE 9.9 RATIO Low 10-20 [facility] Comment on above: Performed By: #### M 100.7900, L500.2500, L503.6005, L300.4310, L100.0100, L300.3900 ####[facility] [address] [place], [address] Calcium [Mass/Vol] 8.4 mg/dL Normal 7.6-11.0 [facility] Comment on above: Performed By: #### M 100.7900, L500.2500, L503.6005, L300.4310, L100.0100, L300.3900 ####[facility] [address] [place], [address] Chloride [Moles/Vol] 106 mmol/L Normal 98-108 [facility] Comment on above: Performed By: #### M 100.7900, L500.2500, L503.6005, L300.4310, L100.0100, L300.3900 ####[facility] [address] [place], [address] CO2 [Moles/Vol] 18.1 mmol/L Low 21.0-32.0 [facility] Comment on above: Performed By: #### M 100.7900, L500.2500, L503.6005, L300.4310, L100.0100, L300.3900 ####[facility] [address] [place], [address] Creatinine [Mass/Vol] 1.67 mg/dL High 0.70-1.20 [facility] Comment on above: Performed By: #### M 100.7900, L500.2500, L503.6005, L300.4310, L100.0100, L300.3900 ####[facility] [address] [place], [address] ECRCL 41.59 ml/min Low 50-250 [facility] Comment on above: Performed By: #### M 100.7900, L500.2500, L503.6005, L300.4310, L100.0100, L300.3900 ####[facility] [address] [place], [address] GAP 15 Normal 5-15 [facility] Comment on above: Performed By: #### M 100.7900, L500.2500, L503.6005, L300.4310, L100.0100, L300.3900 ####[facility] [address] [place], [address] GFR/1.73 sq M.predicted among non-blacks MDRD (S/P/Bld) [Vol rate/Area] 41 mL/min/{1.73_m2} Low >60 [facility] Comment on above: Result Comment: mL/m in/1.73m2 CKD-EPI Creatinine Equation (2020) Performed By: #### M 100.7900, L500.2500, L503.6005, L300.4310, L100.0100, L300.3900 ####[facility] [address] [place], [address] Glucose [Mass/Vol] 125 mg/dL High 70-99 [facility] Comment on above: Performed By: #### M 100.7900, L500.2500, L503.6005, L300.4310, L100.0100, L300.3900 ####[facility] [address] [place], [address] Potassium [Moles/Vol] 4.3 mmol/L Normal 3.3-5.1 [facility] Comment on above: Performed By: #### M 100.7900, L500.2500, L503.6005, L300.4310, L100.0100, L300.3900 ####[facility] [address] [place], [address] Sodium [Moles/Vol] 139 mmol/L Normal 133-145 [facility] Comment on above: Performed By: #### M 100.7900, L500.2500, L503.6005, L300.4310, L100.0100, L300.3900 ####[facility] [address] [place], [address] Urea nitrogen [Mass/Vol] 17 mg/dL Normal 4-19 [facility] Comment on above: Performed By: #### M 100.7900, L500.2500, L503.6005, L300.4310, L100.0100, L300.3900 ####[facility] [address] [place], [address] Bedside Glucoseon 12-24-2024 FINGERSTICK GLU 107 mg/dL High 74-106 [facility] Comment on above: Result Comment: WILDA GEMENT OF PATIENT CARE PER NURSING PROTOCOL Performed By: #### L 501.080 ####[facility] [address] [place], [address] FINGERSTICK GLU 96 mg/dL Normal 74-106 [facility] Comment on above: Result Comment: WILDA GEMENT OF PATIENT CARE PER NURSING PROTOCOL Performed By: #### L 501.080 ####[facility] [address] [place], [address] FINGERSTICK GLU 152 mg/dL High 74-106 [facility] Comment on above: Result Comment: WILDA GEMENT OF PATIENT CARE PER NURSING PROTOCOL Performed By: #### L 501.080 ####[facility] [address] [place], [address] FINGERSTICK GLU 112 mg/dL High 74-106 [facility] Comment on above: Result Comment: WILDA GEMENT OF PATIENT CARE PER NURSING PROTOCOL Performed By: #### L 501.080 ####[facility] [address] [place], [address] Bilirubin, totalOrdered By: Alka Leo on 12-24-2024 Bilirubin [Mass/Vol] 0.53 mg/dL Normal 0.00-1.30 [facility] Comment on above: Performed By: #### L 500.4050 ####[facility] [address] [place], [address] CBC W/Diff, Automatedon 12-02 Absolute Lymph 1.09 X10 3/uL Normal 0.83-4.51 [facility] Comment on above: Performed By: #### M 100.7900, L500.2500, L503.6005, L300.4310, L100.0100, L300.3900 ####[facility] [address] [place], [address] Absolute Neut 6.9 X10 3/uL Normal 2.0-7.7 [facility] Comment on above: Performed By: #### M 100.7900, L500.2500, L503.6005, L300.4310, L100.0100, L300.3900 ####[facility] [address] [place], [address] IG% 0.300 Normal 0.0-0.9 [facility] Comment on above: Result Comment: IG% - Immature Granulocytes (promyelocytes, myelocytes andmetamyelocytes) > 1% indicates that a LEFT SHIFT is Present. Performed By: #### M 100.7900, L500.2500, L503.6005, L300.4310, L100.0100, L300.3900 ####[facility] [address] [place], [address] Nucleated RBC (Bld) [#/Vol] 0 10*3/uL Normal 0-5 [facility] Comment on above: Performed By: #### M 100.7900, L500.2500, L503.6005, L300.4310, L100.0100, L300.3900 ####[facility] [address] [place], [address] Basophils/100 WBC (Bld) 0.2 % Normal 0-1 [facility] Comment on above: Performed By: #### M 100.7900, L500.2500, L503.6005, L300.4310, L100.0100, L300.3900 ####[facility] [address] [place], [address] Eosinophils/100 WBC (Bld) 0.8 % Normal 0-5 [facility] Comment on above: Performed By: #### M 100.7900, L500.2500, L503.6005, L300.4310, L100.0100, L300.3900 ####[facility] [address] [place], [address] Erythrocyte distribution width (RBC) [Ratio] 14.2 % Normal 11.6-14.6 [facility] Comment on above: Performed By: #### M 100.7900, L500.2500, L503.6005, L300.4310, L100.0100, L300.3900 ####[facility] [address] [place], [address] Hematocrit (Bld) [Volume fraction] 35.7 % Low 40-54 [facility] Comment on above: Performed By: #### M 100.7900, L500.2500, L503.6005, L300.4310, L100.0100, L300.3900 ####[facility] [address] [place], [address] Hemoglobin (Bld) [Mass/Vol] 11.8 g/dL Low 13.0-16.5 [facility] Comment on above: Performed By: #### M 100.7900, L500.2500, L503.6005, L300.4310, L100.0100, L300.3900 ####[facility] [address] [place], [address] Lymphocytes/100 WBC (Bld) 12.2 % Low 19-41 [facility] Comment on above: Performed By: #### M 100.7900, L500.2500, L503.6005, L300.4310, L100.0100, L300.3900 ####[facility] [address] [place], [address] MCH (RBC) [Entitic mass] 29.6 pg Normal 27.0-32.0 [facility] Comment on above: Performed By: #### M 100.7900, L500.2500, L503.6005, L300.4310, L100.0100, L300.3900 ####[facility] [address] [place], [address] MCHC (RBC) [Mass/Vol] 33.1 g/dL Normal 32-36 [facility] Comment on above: Performed By: #### M 100.7900, L500.2500, L503.6005, L300.4310, L100.0100, L300.3900 ####[facility] [address] [place], [address] MCV (RBC) [Entitic vol] 89.5 fL Normal 80-94 [facility] Comment on above: Performed By: #### M 100.7900, L500.2500, L503.6005, L300.4310, L100.0100, L300.3900 ####[facility] [address] [place], [address] Monocytes/100 WBC (Bld) 9.1 % Normal 0-10 [facility] Comment on above: Performed By: #### M 100.7900, L500.2500, L503.6005, L300.4310, L100.0100, L300.3900 ####[facility] [address] [place], [address] Neutrophils/100 WBC (Bld) 77.4 % High 47-70 [facility] Comment on above: Performed By: #### M 100.7900, L500.2500, L503.6005, L300.4310, L100.0100, L300.3900 ####[facility] [address] [place], [address] Platelet mean volume (Bld) [Entitic vol] 12.9 fL High 6.2-12.0 [facility] Comment on above: Performed By: #### M 100.7900, L500.2500, L503.6005, L300.4310, L100.0100, L300.3900 ####[facility] [address] [place], [address] Platelets (Bld) [#/Vol] 139 10*3/uL Low 150-450 [facility] Comment on above: Performed By: #### M 100.7900, L500.2500, L503.6005, L300.4310, L100.0100, L300.3900 ####[facility] [address] [place], [address] RBC (Bld) [#/Vol] 3.99 10*6/uL Low 4.6-6.2 [facility] Comment on above: Performed By: #### M 100.7900, L500.2500, L503.6005, L300.4310, L100.0100, L300.3900 ####[facility] [address] [place], [address] RDW SD 45.5 fl High 35.1-43.9 [facility] Comment on above: Performed By: #### M 100.7900, L500.2500, L503.6005, L300.4310, L100.0100, L300.3900 ####[facility] [address] [place], [address] WBC (Bld) [#/Vol] 8.9 10*3/uL Normal 4.4-11.0 [facility] Comment on above: Performed By: #### M 100.7900, L500.2500, L503.6005, L300.4310, L100.0100, L300.3900 ####[facility] [address] [place], [address] Comprehensive Metabolic Prof ilon 12-24-2024 ALK PHOS 136 U/L High 40-129 [facility] Comment on above: Performed By: #### L 500.4050 ####[facility] [address] [place], [address] AST [Catalytic activity/Vol] 24 U/L Normal <=37 [facility] Comment on above: Performed By: #### L 500.4050 ####[facility] [address] [place], [address] BUN/CRE 8.9 RATIO Low 10-20 [facility] Comment on above: Performed By: #### L 500.4050 ####[facility] [address] [place], [address] Calcium [Mass/Vol] 8.5 mg/dL Normal 7.6-11.0 [facility] Comment on above: Performed By: #### L 500.4050 ####[facility] [address] [place], [address] Chloride [Moles/Vol] 106 mmol/L Normal 98-108 [facility] Comment on above: Performed By: #### L 500.4050 ####[facility] [address] [place], [address] CO2 [Moles/Vol] 16.6 mmol/L Low 21.0-32.0 [facility] Comment on above: Performed By: #### L 500.4050 ####[facility] [address] [place], [address] Creatinine [Mass/Vol] 1.62 mg/dL High 0.70-1.20 [facility] Comment on above: Performed By: #### L 500.4050 ####[facility] [address] [place], [address] ECRCL 42.41 ml/min Low 50-250 [facility] Comment on above: Performed By: #### L 500.4050 ####[facility] [address] [place], [address] GAP 16 High 5-15 [facility] Comment on above: Performed By: #### L 500.4050 ####[facility] [address] [place], [address] GFR/1.73 sq M.predicted among non-blacks MDRD (S/P/Bld) [Vol rate/Area] 43 mL/min/{1.73_m2} Low >60 [facility] Comment on above: Result Comment: mL/m in/1.73m2 CKD-EPI Creatinine Equation (2020) Performed By: #### L 500.4050 ####[facility] [address] [place], [address] Glucose [Mass/Vol] 127 mg/dL High 70-99 [facility] Comment on above: Performed By: #### L 500.4050 ####[facility] [address] [place], [address] Potassium [Moles/Vol] 4.0 mmol/L Normal 3.3-5.1 [facility] Comment on above: Performed By: #### L 500.4050 ####[facility] [address] [place], [address] Sodium [Moles/Vol] 138 mmol/L Normal 133-145 [facility] Comment on above: Performed By: #### L 500.4050 ####[facility] [address] [place], [address] T PROT 6.6 g/dL Normal 5.9-8.4 [facility] Comment on above: Performed By: #### L 500.4050 ####[facility] [address] [place], [address] Urea nitrogen [Mass/Vol] 14 mg/dL Normal 4-19 [facility] Comment on above: Performed By: #### L 500.4050 ####[facility] [address] [place], [address] Emergency Department Summary on 12-24-2024 Emergency Department Summary Normal [facility] H AND P Exam - Hospitaliston 12-24-2024 H&P Exam - Hospitalist Normal [facility] HH, Hemoglobin AND Hematocri ton 12-24-2024 Hematocrit (Bld) [Volume fraction] 32.2 % Low 40-54 [facility] Comment on above: Performed By: #### L 100.0600 ####[facility] [address] [place], [address] Hemoglobin (Bld) [Mass/Vol] 10.6 g/dL Low 13.0-16.5 [facility] Comment on above: Performed By: #### L 100.0600 ####[facility] [address] [place], [address] Hematocrit (Bld) [Volume fraction] 32.2 % Low 40-54 [facility] Comment on above: Performed By: #### L 100.0600 ####[facility] [address] [place], [address] Hemoglobin (Bld) [Mass/Vol] 10.5 g/dL Low 13.0-16.5 [facility] Comment on above: Performed By: #### L 100.0600 ####[facility] [address] [place], [address] Hematocrit (Bld) [Volume fraction] 38.7 % Low 40-54 [facility] Comment on above: Performed By: #### L 100.0600 ####[facility] [address] [place], [address] Hemoglobin (Bld) [Mass/Vol] 12.3 g/dL Low 13.0-16.5 [facility] Comment on above: Performed By: #### L 100.0600 ####[facility] [address] [place], [address] Hematocrit (Bld) [Volume fraction] 34.5 % Low 40-54 [facility] Comment on above: Performed By: #### L 100.0600 ####[facility] [address] [place], [address] Hemoglobin (Bld) [Mass/Vol] 11.2 g/dL Low 13.0-16.5 [facility] Comment on above: Performed By: #### L 100.0600 ####[facility] [address] [place], [address] Lactic Acidon 12-24-2024 Lactate [Moles/Vol] 1.7 mmol/L Normal 0.0-2.0 [facility] Comment on above: Performed By: #### L 503.6005 ####[facility] [address] [place], [address] Lactate [Moles/Vol] 2.1 mmol/L Invalid Interpretation Code 0.0-2.0 [facility] Comment on above: Order Comment: Y Result Comment: Crit ical Result(s) Called at: 0049 by:??NIKA RAMESH. Results read back by same. Performed By: #### M 100.7900, L500.2500, L503.6005, L300.4310, L100.0100, L300.3900 ####[facility] [address] [place], [address] Magnesiumon 12-24-2024 Magnesium [Mass/Vol] 1.7 mg/dL Normal 1.5-2.2 [facility] Comment on above: Order Comment: Comme nts: may add to ED labs Performed By: #### L 501.5200 ####[facility] [address] [place], [address] No Panel InformationOrdered By: Alka Leo on 12-24-2024 24 U/L <38 [facility] Partial Thromboplast Timeon 12-24-2024 aPTT Coag (Bld) [Time] 27.6 s Normal 24.1-36.2 [facility] Comment on above: Performed By: #### M 100.7900, L500.2500, L503.6005, L300.4310, L100.0100, L300.3900 ####[facility] [address] [place], [address] Prothrombin Time w/INRon INR Coag (PPP) [Relative time] 1.0 {INR} Normal [facility] Comment on above: Performed By: #### M 100.7900, L500.2500, L503.6005, L300.4310, L100.0100, L300.3900 ####[facility] [address] [place], [address] Prothrombin timeOrdered By: Andrae Kennedy on 12-24-2024 PT Coag (PPP) [Time] 13.5 s Normal 11.7-14.9 [facility] Comment on above: Performed By: #### M 100.7900, L500.2500, L503.6005, L300.4310, L100.0100, L300.3900 ####[facility] [address] [place], [place], [address] Serum globulin measurementOr dered By: Alka Leo on 12-24-2024 Globulin (S) [Mass/Vol] 3.1 g/dL Normal 2.2-4.2 [facility] Comment on above: Performed By: #### L 500.4050 ####[facility] [address] [place], [address] Serum or plasma alanine guerrero otransferase (ALT) measurementOrdered By: on 12-24-2024 ALT [Catalytic activity/Vol] 26 U/L Normal <=46 [facility] Comment on above: Performed By: #### L 500.4050 ####[facility] [address] [place], [address] Serum or plasma albumin francine urement (mass/volume)Ordered By: Alka Leo on 12-24-2024 Albumin [Mass/Vol] 3.5 g/dL Normal 3.4-4.8 [facility] Comment on above: Performed By: #### L 500.4050 ####[facility] [address] [place], [place], [address] Serum or plasma albumin/glob ulin mass ratioOrdered By: on 12-24-2024 Albumin/Globulin [Mass ratio] 1.1 {ratio} Normal 0.9-2.4 [facility] Comment on above: Performed By: #### L 500.4050 ####[facility] [address] [place], [address] Serum or plasma alkaline bell sphatase measurementOrdered By: Alka Ahmet on 12-24-2024 ALP [Catalytic activity/Vol] 136 U/L High 40-129 [facility] Stool Occult Blood iFOBon STOB Normal [facility] Comment on above: Performed By: #### M 100.7900, L500.2500, L503.6005, L300.4310, L100.0100, L300.3900 ####[facility] [address] [place], [address] Stool gastrointestinal hemog lobin detection by immunologic methodOrdered By: Andrae Kennedy on 12-24-2024 Lower GI hemoglobin IA Ql (Stl) Positive Abnormal [facility] Total proteinOrdered By: Aut umn White on 12-24-2024 Protein [Mass/Vol] 6.6 g/dL 5.9-8.4 [facility] Absolute lymphocyte countOrd ered By: Boyd Rock on 12-21-2024 Lymphocytes Auto (Unsp spec) [#/Vol] 0.76 10*3/uL Low 0.83-4.51 [facility] Anion gap in Serum or Plasma Ordered By: Boyd Rock on 12-21-2024 Anion gap [Moles/Vol] 17 mmol/L High 5-15 [facility] Automated lymphocyte count a s percentage of total leukocytesOrdered By: Boyd Rock on 12-21-2024 Lymphocytes/100 WBC Auto (Unsp spec) 8.7 % Low 19-41 [facility] BUN/creatinine ratioOrdered By: Boyd Rock on 12-21-2024 Urea nitrogen/Creatinine [Mass ratio] 20.6 mg/mg High 10-20 [facility] Basophil percentageOrdered B y: Boyd Rock on 12-21-2024 Basophils/100 WBC (Bld) 0.2 % 0-1 [facility] Carbon dioxide, total [Moles /volume] in Central venous bloodOrdered By: Boyd Rock on 12-21-2024 CO2 [Moles/Vol] 16.7 mmol/L Low 21.0-32.0 [facility] Chloride assayOrdered By: Susanna Rock on 12-21-2024 Chloride [Moles/Vol] 101 mmol/L 98-108 [facility] Eosinophil percentageOrdered By: Boyd Rock on 12-21-2024 Eosinophils/100 WBC (Bld) 0.2 % 0-5 [facility] Erythrocyte distribution wid th ratioOrdered By: Boyd Rock on 12-21-2024 Erythrocyte distribution width (RBC) [Ratio] 13.9 % 11.6-14.6 [facility] Erythrocyte distribution wid th standard deviationOrdered By: Boyd Rock on 12-21-2024 Erythrocyte distribution width (RBC) [Ratio] 44.6 fl High 35.1-43.9 [facility] Glomerular filtration rate ( GFR) estimation/1.73 sq m using serum, plasma, or whole bOrdered By: Boyd Rock on 12-21-2024 GFR/1.73 sq M.predicted among non-blacks MDRD (S/P/Bld) [Vol rate/Area] 26 mL/min/{1.73_m2} Low >60 [facility] Hematocrit Auto (Bld) [Volum e fraction]Ordered By: [facility] on 12-21-2024 Hematocrit (Bld) [Volume fraction] 37.3 % Low 40-54 [facility] Hemoglobin measurementOrdere d By: andrés Rock on 12-21-2024 Hemoglobin (Bld) [Mass/Vol] 12.2 g/dL Low 13.0-16.5 [facility] Immature granulocytes/100 WB C Auto (Bld)Ordered By: Boyd Rock on 12-21-2024 Immature granulocytes/100 WBC (Bld) 0.600 % 0.0-0.9 [facility] MCV (mean corpuscular volume ) determinationOrdered By: Boyd Rock on 12-21-2024 MCV (RBC) [Entitic vol] 87.8 fL 80-94 [facility] Mean corpuscular hemoglobin (MCH) determinationOrdered By: [facility] on 12-21-2024 MCH (RBC) [Entitic mass] 28.7 pg 27.0-32.0 [facility] Monocyte percentageOrdered B y: andrés Rock on 12-21-2024 Monocytes/100 WBC (Bld) 10.6 % High 0-10 [facility] Neutrophil percentageOrdered By: [facility] Graryveronica on 12-21-2024 Neutrophils/100 WBC (Bld) 79.7 % High 47-70 [facility] Platelet countOrdered By: [facility] Berrienbrittni Rock on 12-21-2024 Platelets (Bld) [#/Vol] 145 10*3/uL Low 150-450 [facility] Potassium measurement (mass/ volume)Ordered By: Boyd Rock on 12-21-2024 Potassium (Unsp spec) [Mass/Vol] 4.2 mmol/L 3.3-5.1 [facility] RBC Auto (Bld) [#/Vol]Ordere d By: Boyd Rock on 12-21-2024 RBC (Bld) [#/Vol] 4.25 10*6/uL Low 4.6-6.2 [facility] Serum creatinine measurement (mass/volume)Ordered By: Boyd Rock on 12-21-2024 Creatinine [Mass/Vol] 2.49 mg/dL High 0.70-1.20 [facility] Serum glucose measurement (m ass/volume)Ordered By: Boyd Rock on 12-21-2024 Glucose [Mass/Vol] 134 mg/dL High 70-99 [facility] Serum or plasma calcium francine urement (mass/volume)Ordered By: Boyd Rock on 12-21-2024 Calcium [Mass/Vol] 9.0 mg/dL 7.6-11.0 [facility] Serum or plasma urea nitroge n measurement (mass/volume)Ordered By: Boyd Rock on 12-21-2024 Urea nitrogen [Mass/Vol] 51 mg/dL High 4-19 [facility] Sodium levelOrdered By: Lupe Rock on 12-21-2024 Sodium [Moles/Vol] 134 mmol/L 133-145 [facility] T4 freeOrdered By: Boyd Rock on 12-21-2024 Free T4 [Mass/Vol] 1.20 ng/dL 0.76-1.46 [facility] TSH DL <= 0.005 mIU/L QnOrde red By: Boyd Rock on 12-21-2024 TSH Qn 5.250 uIU/mL High 0.300-4.20 0 [facility] Vitamin B12 ser/plasOrdered By: Boyd Rock on 12-21-2024 Cobalamin (Vitamin B12) [Mass/Vol] 2000 pg/mL High 180-914 [facility] White blood cell (WBC) count Ordered By: Boyd Rock on 12-21-2024 WBC (Bld) [#/Vol] 8.7 10*3/uL 4.4-11.0 [facility] 12 Lead EKGon 12-20-2024 12 Lead EKG Normal [facility] Absolute lymphocyte countOrd ered By: Jody Servin on 12-20-2024 Lymphocytes Auto (Unsp spec) [#/Vol] 1.39 10*3/uL 0.83-4.51 [facility] Absolute lymphocyte countOrd ered By: Boyd Rock on 12-20-2024 Lymphocytes Auto (Unsp spec) [#/Vol] 1.09 10*3/uL 0.83-4.51 [facility] Activated partial thrombopla stin time (aPTT) in platelet poor plasma by coagulation aOrdered By: Jody Servin on 12-20-2024 aPTT Coag (PPP) [Time] 27.6 s 24.1-36.2 [facility] Anion gap in Serum or Plasma Ordered By: Jody Servin on 12-20-2024 Anion gap [Moles/Vol] 19 mmol/L [facility] 09-14 [facility] Anion gap in Serum or Plasma Ordered By: Boyd Rock on 12-20-2024 Anion gap [Moles/Vol] 18 mmol/L [facility] 09-14 [facility] Automated lymphocyte count a s percentage of total leukocytesOrdered By: Jody Servin on 12-20-2024 Lymphocytes/100 WBC Auto (Unsp spec) 11.8 % Low [facility] Automated lymphocyte count a s percentage of total leukocytesOrdered By: Boyd Rock on 12-20-2024 Lymphocytes/100 WBC Auto (Unsp spec) 10.5 % Low [facility] BUN/creatinine ratioOrdered By: Jody Servin on 12-20-2024 Urea nitrogen/Creatinine [Mass ratio] 19.5 mg/mg 02-19 [facility] BUN/creatinine ratioOrdered By: Boyd Rock on 12-20-2024 Urea nitrogen/Creatinine [Mass ratio] 20.4 mg/mg High 02-19 [facility] Basophil percentageOrdered B y: Jody Servin on 12-20-2024 Basophils/100 WBC (Bld) 0.2 % 0-1 [facility] Basophil percentageOrdered B y: Boyd Rock on 12-20-2024 Basophils/100 WBC (Bld) 0.3 % 0-1 [facility] Bilirubin, totalOrdered By: Jody Servin on 12-20-2024 Bilirubin [Mass/Vol] 1.15 mg/dL 0.00-1.30 [facility] Bilirubin, totalOrdered By: Boyd Rock on 12-20-2024 Bilirubin [Mass/Vol] 1.08 mg/dL 0.00-1.30 [facility] CBC W/Diff, Automatedon 12-02 Absolute Lymph 1.39 X10 3/uL Normal 0.83-4.51 [facility] Comment on above: Performed By: #### L 300.3900, L300.4310, L100.0100 ####[facility] [address] [place], [address] Absolute Neut 9.0 X10 3/uL High 2.0-7.7 [facility] Comment on above: Performed By: #### L 300.3900, L300.4310, L100.0100 ####[facility] [address] [place], [address] Basophils/100 WBC (Bld) 0.2 % Normal 0-1 [facility] Comment on above: Performed By: #### L 300.3900, L300.4310, L100.0100 ####[facility] [address] [place], [address] Eosinophils/100 WBC (Bld) 0.1 % Normal 0-5 [facility] Comment on above: Performed By: #### L 300.3900, L300.4310, L100.0100 ####[facility] [address] [place], [address] Erythrocyte distribution width (RBC) [Ratio] 13.8 % Normal 11.6-14.6 [facility] Comment on above: Performed By: #### L 300.3900, L300.4310, L100.0100 ####[facility] [address] [place], [address] Hematocrit (Bld) [Volume fraction] 41.8 % Normal 40-54 [facility] Comment on above: Performed By: #### L 300.3900, L300.4310, L100.0100 ####[facility] [address] [place], [address] Hemoglobin (Bld) [Mass/Vol] 13.8 g/dL Normal 13.0-16.5 [facility] Comment on above: Performed By: #### L 300.3900, L300.4310, L100.0100 ####[facility] [address] [place], [address] IG% 0.500 Normal 0.0-0.9 [facility] Comment on above: Result Comment: IG% - Immature Granulocytes (promyelocytes, myelocytes andmetamyelocytes) > 1% indicates that a LEFT SHIFT is Present. Performed By: #### L 300.3900, L300.4310, L100.0100 ####[facility] [address] [place], [address] Lymphocytes/100 WBC (Bld) 11.8 % Low 19-41 [facility] Comment on above: Performed By: #### L 300.3900, L300.4310, L100.0100 ####[facility] [address] [place], [address] MCH (RBC) [Entitic mass] 28.6 pg Normal 27.0-32.0 [facility] Comment on above: Performed By: #### L 300.3900, L300.4310, L100.0100 ####[facility] [address] [place], [address] MCHC (RBC) [Mass/Vol] 33.0 g/dL Normal 32-36 [facility] Comment on above: Performed By: #### L 300.3900, L300.4310, L100.0100 ####[facility] [address] [place], [address] MCV (RBC) [Entitic vol] 86.7 fL Normal 80-94 [facility] Comment on above: Performed By: #### L 300.3900, L300.4310, L100.0100 ####[facility] [address] [place], [address] Monocytes/100 WBC (Bld) 11.5 % High 0-10 [facility] Comment on above: Performed By: #### L 300.3900, L300.4310, L100.0100 ####[facility] [address] [place], [address] Neutrophils/100 WBC (Bld) 75.9 % High 47-70 [facility] Comment on above: Performed By: #### L 300.3900, L300.4310, L100.0100 ####[facility] [address] [place], [address] Nucleated RBC (Bld) [#/Vol] 0 10*3/uL Normal 0-5 [facility] Comment on above: Performed By: #### L 300.3900, L300.4310, L100.0100 ####[facility] [address] [place], [address] Platelet mean volume (Bld) [Entitic vol] 13.3 fL High 6.2-12.0 [facility] Comment on above: Performed By: #### L 300.3900, L300.4310, L100.0100 ####[facility] [address] [place], [address] Platelets (Bld) [#/Vol] 231 10*3/uL Normal 150-450 [facility] Comment on above: Performed By: #### L 300.3900, L300.4310, L100.0100 ####[facility] [address] [place], [address] RBC (Bld) [#/Vol] 4.82 10*6/uL Normal 4.6-6.2 [facility] Comment on above: Performed By: #### L 300.3900, L300.4310, L100.0100 ####[facility] [address] [place], [address] RDW SD 43.2 fl Normal 35.1-43.9 [facility] Comment on above: Performed By: #### L 300.3900, L300.4310, L100.0100 ####[facility] [address] [place], [address] WBC (Bld) [#/Vol] 11.8 10*3/uL High 4.4-11.0 [facility] Comment on above: Performed By: #### L 300.3900, L300.4310, L100.0100 ####[facility] [address] [place], [address] CTA Abd/Pelvis W/WO Contrast on 12-20-2024 CTA Abd/Pelvis W/WO Contrast Normal [facility] Carbon dioxide, total [Moles /volume] in Central venous bloodOrdered By: Jody Servin on 12-20-2024 CO2 [Moles/Vol] 18.5 mmol/L Low 21.0-32.0 [facility] Carbon dioxide, total [Moles /volume] in Central venous bloodOrdered By: Boyd Rock on 12-20-2024 CO2 [Moles/Vol] 18.6 mmol/L Low 21.0-32.0 [facility] Chest PA and Lateralon 12-20 Chest PA and Lateral Normal [facility] Chloride assayOrdered By: Er alonzo Servin on 12-20-2024 Chloride [Moles/Vol] 93 mmol/L Low 98-108 [facility] Chloride assayOrdered By: Ef andrés Rock on 12-20-2024 Chloride [Moles/Vol] 94 mmol/L Low 98-108 [facility] Comprehensive Metabolic Prof ilon 12-20-2024 Albumin [Mass/Vol] 4.0 g/dL Normal 3.4-4.8 [facility] Comment on above: Performed By: #### L 501.5200, L500.4050, L501.2450 ####[facility] [address] [place], [address] Albumin/Globulin [Mass ratio] 1.0 {ratio} Normal 0.9-2.4 [facility] Comment on above: Performed By: #### L 501.5200, L500.4050, L501.2450 ####[facility] [address] [place], [address] ALK PHOS 180 U/L High 40-129 [facility] Comment on above: Performed By: #### L 501.5200, L500.4050, L501.2450 ####[facility] [address] [place], [address] ALT [Catalytic activity/Vol] 32 U/L Normal <=46 [facility] Comment on above: Performed By: #### L 501.5200, L500.4050, L501.2450 ####[facility] [address] [place], [address] AST [Catalytic activity/Vol] 28 U/L Normal <=37 [facility] Comment on above: Performed By: #### L 501.5200, L500.4050, L501.2450 ####[facility] [address] [place], [address] Bilirubin [Mass/Vol] 1.15 mg/dL Normal 0.00-1.30 [facility] Comment on above: Performed By: #### L 501.5200, L500.4050, L501.2450 ####[facility] [address] [place], [address] BUN/CRE 19.5 RATIO Normal 10-20 [facility] Comment on above: Performed By: #### L 501.5200, L500.4050, L501.2450 ####[facility] [address] [place], [address] Calcium [Mass/Vol] 9.5 mg/dL Normal 7.6-11.0 [facility] Comment on above: Performed By: #### L 501.5200, L500.4050, L501.2450 ####[facility] [address] [place], [address] Chloride [Moles/Vol] 93 mmol/L Low 98-108 [facility] Comment on above: Performed By: #### L 501.5200, L500.4050, L501.2450 ####[facility] [address] [place], [address] CO2 [Moles/Vol] 18.5 mmol/L Low 21.0-32.0 [facility] Comment on above: Performed By: #### L 501.5200, L500.4050, L501.2450 ####[facility] [address] [place], [address] Creatinine [Mass/Vol] 3.24 mg/dL High 0.70-1.20 [facility] Comment on above: Performed By: #### L 501.5200, L500.4050, L501.2450 ####[facility] [address] [place], [address] ECRCL 21.32 ml/min Low 50-250 [facility] Comment on above: Performed By: #### L 501.5200, L500.4050, L501.2450 ####[facility] [address] [place], [address] GAP 19 High 5-15 [facility] Comment on above: Performed By: #### L 501.5200, L500.4050, L501.2450 ####[facility] [address] [place], [address] GFR/1.73 sq M.predicted among non-blacks MDRD (S/P/Bld) [Vol rate/Area] 19 mL/min/{1.73_m2} Low >60 [facility] Comment on above: Result Comment: mL/m in/1.73m2 CKD-EPI Creatinine Equation (2020) Performed By: #### L 501.5200, L500.4050, L501.2450 ####[facility] [address] [place], [address] Globulin (S) [Mass/Vol] 4.0 g/dL Normal 2.2-4.2 [facility] Comment on above: Performed By: #### L 501.5200, L500.4050, L501.2450 ####[facility] [address] [place], [address] Glucose [Mass/Vol] 173 mg/dL High 70-99 [facility] Comment on above: Performed By: #### L 501.5200, L500.4050, L501.2450 ####[facility] [address] [place], [address] Potassium [Moles/Vol] 4.2 mmol/L Normal 3.3-5.1 [facility] Comment on above: Performed By: #### L 501.5200, L500.4050, L501.2450 ####[facility] [address] [place], [address] Sodium [Moles/Vol] 131 mmol/L Low 133-145 [facility] Comment on above: Performed By: #### L 501.5200, L500.4050, L501.2450 ####[facility] [address] [place], [address] T PROT 8.0 g/dL Normal 5.9-8.4 [facility] Comment on above: Performed By: #### L 501.5200, L500.4050, L501.2450 ####[facility] [address] [place], [address] Urea nitrogen [Mass/Vol] 63 mg/dL High 4-19 [facility] Comment on above: Performed By: #### L 501.5200, L500.4050, L501.2450 ####[facility] [address] [place], [address] Emergency Department Summary on 12-20-2024 Emergency Department Summary Normal [facility] Eosinophil percentageOrdered By: Jody Servin on 12-20-2024 Eosinophils/100 WBC (Bld) 0.1 % 0-5 [facility] Eosinophil percentageOrdered By: Boyd Rock on 12-20-2024 Eosinophils/100 WBC (Bld) 0.2 % 0-5 [facility] Erythrocyte distribution wid th ratioOrdered By: Jody Servin on 12-20-2024 Erythrocyte distribution width (RBC) [Ratio] 13.8 % 11.6-14.6 [facility] Erythrocyte distribution wid th ratioOrdered By: Efewabbeybe Garryghe on 12-20-2024 Erythrocyte distribution width (RBC) [Ratio] 13.7 % 11.6-14.6 [facility] Erythrocyte distribution wid th standard deviationOrdered By: Jody Servin on 12-20-2024 Erythrocyte distribution width (RBC) [Ratio] 43.2 fl 35.1-43.9 [facility] Erythrocyte distribution wid th standard deviationOrdered By: Boyd Videse on 12-20-2024 Erythrocyte distribution width (RBC) [Ratio] 43.4 fl 35.1-43.9 [facility] Glomerular filtration rate ( GFR) estimation/1.73 sq m using serum, plasma, or whole bOrdered By: Jody Servin on 12-20-2024 GFR/1.73 sq M.predicted among non-blacks MDRD (S/P/Bld) [Vol rate/Area] 19 mL/min/{1.73_m2} Low >60 [facility] Glomerular filtration rate ( GFR) estimation/1.73 sq m using serum, plasma, or whole bOrdered By: Boyd Rock on 12-20-2024 GFR/1.73 sq M.predicted among non-blacks MDRD (S/P/Bld) [Vol rate/Area] 18 mL/min/{1.73_m2} Low >60 [facility] Hematocrit Auto (Bld) [Volum e fraction]Ordered By: Jody Servin on 12-20-2024 Hematocrit (Bld) [Volume fraction] 41.8 % 40-54 [facility] Hematocrit Auto (Bld) [Volum e fraction]Ordered By: Boyd Rock on 12-20-2024 Hematocrit (Bld) [Volume fraction] 41.1 % 40-54 [facility] Hemoglobin measurementOrdere d By: Jody Servin on 12-20-2024 Hemoglobin (Bld) [Mass/Vol] 13.8 g/dL 13.0-16.5 [facility] Hemoglobin measurementOrdere d By: Boyd Rock on 12-20-2024 Hemoglobin (Bld) [Mass/Vol] 13.6 g/dL 13.0-16.5 [facility] Immature granulocytes/100 WB C Auto (Bld)Ordered By: Jody Servin on 12-20-2024 Immature granulocytes/100 WBC (Bld) 0.500 % 0.0-0.9 [facility] Immature granulocytes/100 WB C Auto (Bld)Ordered By: Boyd Rock on 12-20-2024 Immature granulocytes/100 WBC (Bld) 0.800 % 0.0-0.9 [facility] Lipaseon 12-20-2024 Lipase [Catalytic activity/Vol] 120 U/L High 13-75 [facility] Comment on above: Result Comment: Noah fletcher note:LIPASE revised reference range effective 22.New Lipase methodology. Expected to produce lower valuesthan the previous assay method.NEW Reference Range: 13 - 75 U/L Performed By: #### L 501.5200, L500.4050, L501.2450 ####[facility] [address] [place], [address] MCV (mean corpuscular volume ) determinationOrdered By: Joyd Servin on 12-20-2024 MCV (RBC) [Entitic vol] 86.7 fL 80-94 [facility] MCV (mean corpuscular volume ) determinationOrdered By: Boyd Rock on 12-20-2024 MCV (RBC) [Entitic vol] 87.6 fL 80-94 [facility] Magnesiumon 12-20-2024 Magnesium [Mass/Vol] 2.4 mg/dL High 1.5-2.2 [facility] Comment on above: Performed By: #### L 501.5200, L500.4050, L501.2450 ####[facility] [address] [place], [place], [address] Magnesium measurement (mass/ volume)Ordered By: Jody Servin on 12-20-2024 Magnesium (Unsp spec) [Mass/Vol] 2.4 mg/dL High 1.5-2.2 [facility] Mean corpuscular hemoglobin (MCH) determinationOrdered By: Jody Servin on 12-20-2024 MCH (RBC) [Entitic mass] 28.6 pg 27.0-32.0 [facility] Mean corpuscular hemoglobin (MCH) determinationOrdered By: Boyd Rock on 12-20-2024 MCH (RBC) [Entitic mass] 29.0 pg 27.0-32.0 [facility] Monocyte percentageOrdered B y: Jody Servin on 12-20-2024 Monocytes/100 WBC (Bld) 11.5 % High 0-10 [facility] Monocyte percentageOrdered B y: Boyd Rock on 12-20-2024 Monocytes/100 WBC (Bld) 12.1 % High 0-10 [facility] Neutrophil percentageOrdered By: Jody Servin on 12-20-2024 Neutrophils/100 WBC (Bld) 75.9 % High 47-70 [facility] Neutrophil percentageOrdered By: Boyd Rock on 12-20-2024 Neutrophils/100 WBC (Bld) 76.1 % High 47-70 [facility] No Panel InformationOrdered By: Jody Servin on 12-20-2024 28 U/L <38 [facility] No Panel InformationOrdered By: Boyd Rock on 12-20-2024 29 U/L <38 [facility] Partial Thromboplast Timeon 12-20-2024 aPTT Coag (Bld) [Time] 27.6 s Normal 24.1-36.2 [facility] Comment on above: Performed By: #### L 300.3900, L300.4310, L100.0100 ####[facility] [address] [place], [address] Platelet countOrdered By: Charlie Servin on 12-20-2024 Platelets (Bld) [#/Vol] 231 10*3/uL 150-450 [facility] Platelet countOrdered By: uSsanna garrytesha Rock on 12-20-2024 Platelets (Bld) [#/Vol] 208 10*3/uL 150-450 [facility] Potassium measurement (mass/ volume)Ordered By: Jody Servin on 12-20-2024 Potassium (Unsp spec) [Mass/Vol] 4.2 mmol/L 3.3-5.1 [facility] Potassium measurement (mass/ volume)Ordered By: Boyd Rock on 12-20-2024 Potassium (Unsp spec) [Mass/Vol] 4.0 mmol/L 3.3-5.1 [facility] Prothrombin Time w/INRon INR Coag (PPP) [Relative time] 1.1 {INR} Normal [facility] Comment on above: Performed By: #### L 300.3900, L300.4310, L100.0100 ####[facility] [address] [place], [address] PT Coag (PPP) [Time] 14.1 s Normal 11.7-14.9 [facility] Comment on above: Performed By: #### L 300.3900, L300.4310, L100.0100 ####[facility] [address] [place], [address] Prothrombin timeOrdered By: Jody Servin on 12-20-2024 PT Coag (PPP) [Time] 14.1 s 11.7-14.9 [facility] RBC Auto (Bld) [#/Vol]Ordere d By: Jody Servin on 12-20-2024 RBC (Bld) [#/Vol] 4.82 10*6/uL 4.6-6.2 [facility] RBC Auto (Bld) [#/Vol]Ordere d By: Boyd Rock on 12-20-2024 RBC (Bld) [#/Vol] 4.69 10*6/uL 4.6-6.2 [facility] Serum creatinine measurement (mass/volume)Ordered By: Jody Servin on 12-20-2024 Creatinine [Mass/Vol] 3.24 mg/dL High 0.70-1.20 [facility] Serum creatinine measurement (mass/volume)Ordered By: Boyd Rock on 12-20-2024 Creatinine [Mass/Vol] 3.35 mg/dL High 0.70-1.20 [facility] Serum globulin measurementOr dered By: Jody Servin on 12-20-2024 Globulin (S) [Mass/Vol] 4.0 g/dL 2.2-4.2 [facility] Serum globulin measurementOr dered By: Boyd Rokc on 12-20-2024 Globulin (S) [Mass/Vol] 3.7 g/dL 2.2-4.2 [facility] Serum glucose measurement (m ass/volume)Ordered By: Jody Servin on 12-20-2024 Glucose [Mass/Vol] 173 mg/dL High 70-99 [facility] Serum glucose measurement (m ass/volume)Ordered By: Boyd Rock on 12-20-2024 Glucose [Mass/Vol] 205 mg/dL High 70-99 [facility] Serum or plasma alanine guerrero otransferase (ALT) measurementOrdered By: Jody Servin on 12-20-2024 ALT [Catalytic activity/Vol] 32 U/L <47 [facility] Serum or plasma alanine guerrero otransferase (ALT) measurementOrdered By: Boyd Rock on 12-20-2024 ALT [Catalytic activity/Vol] 31 U/L <47 [facility] Serum or plasma albumin francine urement (mass/volume)Ordered By: Jody Servin on 12-20-2024 Albumin [Mass/Vol] 4.0 g/dL 3.4-4.8 [facility] Serum or plasma albumin francine urement (mass/volume)Ordered By: Boyd Rock on 12-20-2024 Albumin [Mass/Vol] 4.0 g/dL 3.4-4.8 [facility] Serum or plasma albumin/glob ulin mass ratioOrdered By: Jody Servin on 12-20-2024 Albumin/Globulin [Mass ratio] 1.0 {ratio} 0.9-2.4 [facility] Serum or plasma albumin/glob ulin mass ratioOrdered By: Boyd Rock on 12-20-2024 Albumin/Globulin [Mass ratio] 1.1 {ratio} 0.9-2.4 [facility] Serum or plasma alkaline bell sphatase measurementOrdered By: Jody Servin on 12-20-2024 ALP [Catalytic activity/Vol] 180 U/L High 40-129 [facility] Serum or plasma alkaline bell sphatase measurementOrdered By: Boyd Rock on 12-20-2024 ALP [Catalytic activity/Vol] 167 U/L High 40-129 [facility] Serum or plasma calcium francine urement (mass/volume)Ordered By: Jody Servin on 12-20-2024 Calcium [Mass/Vol] 9.5 mg/dL 7.6-11.0 [facility] Serum or plasma calcium francine urement (mass/volume)Ordered By: Boyd Rock on 12-20-2024 Calcium [Mass/Vol] 9.2 mg/dL 7.6-11.0 [facility] Serum or plasma urea nitroge n measurement (mass/volume)Ordered By: Jody Servin on 12-20-2024 Urea nitrogen [Mass/Vol] 63 mg/dL High - [facility] Serum or plasma urea nitroge n measurement (mass/volume)Ordered By: Boyd Rock on 12-20-2024 Urea nitrogen [Mass/Vol] 69 mg/dL High - [facility] Sodium levelOrdered By: Shaan Servin on 12-20-2024 Sodium [Moles/Vol] 131 mmol/L Low 133-145 [facility] Sodium levelOrdered By: Lupe gallowayluis m Shweta on 12-20-2024 Sodium [Moles/Vol] 131 mmol/L Low 133-145 [facility] Stool Occult Blood iFOBon STOB Positive Normal [facility] Comment on above: Performed By: #### M 100.7900 ####[facility] [address] [place], [address] Stool gastrointestinal hemog lobin detection by immunologic methodOrdered By: Jody Servin on 12-20-2024 Lower GI hemoglobin IA Ql (Stl) Positive Abnormal [facility] Total proteinOrdered By: Gunjan Servin on 12-20-2024 Protein [Mass/Vol] 8.0 g/dL 5.9-8.4 [facility] Total proteinOrdered By: Anastacio lillianbrittni Rock on 12-20-2024 Protein [Mass/Vol] 7.7 g/dL 5.9-8.4 [facility] Type AND Screenon 12-20-2024 ABO and Rh group Nom (Bld) Blood group O Rh(D) positive Normal [facility] Comment on above: Order Comment: Has p t arrived? YHGI Performed By: #### B TS ####[facility] [address] [place], [address] White blood cell (WBC) count Ordered By: Jody Servin on 12-20-2024 WBC (Bld) [#/Vol] 11.8 10*3/uL High 4.4-11.0 [facility] White blood cell (WBC) count Ordered By: Boyd Rock on 12-20-2024 WBC (Bld) [#/Vol] 10.3 10*3/uL 4.4-11.0 [facility] Clostridium difficile detect ion by polymerase chain reactionOrdered By: Boyd Rock on 12-18-2024 C. difficile DNA REAGAN+probe Ql (Unsp spec) [facility] Bedside Glucoseon 12-17-2024 FINGERSTICK GLU 253 mg/dL High [address] [place] [address] Comment on above: Result Comment: WILDA GEMENT OF PATIENT CARE PER NURSING PROTOCOL Performed By: #### L 501.080 ####[facility] [address] [place], [place], [id number] FINGERSTICK GLU 178 mg/dL High [address] Comment on above: Result Comment: WILDA GEMENT OF PATIENT CARE PER NURSING PROTOCOL Performed By: #### L 501.080 ####[facility] [address] [place], [place], [address] Glucose measurement at [facility] deOrdered By: Marycarmen Marlow on 12-17-2024 Glucose [Mass/Vol] 253 mg/dL High [address] [facility] Absolute lymphocyte countOrd ered By: Ramonita Herron on 12-16-2024 Lymphocytes Auto (Unsp spec) [#/Vol] 0.93 10*3/uL 0.83-4.51 [facility] Anion gap in Serum or Plasma Ordered By: Ramonita Herron on 12-16-2024 Anion gap [Moles/Vol] 18 mmol/L High 5-15 [facility] Automated lymphocyte count a s percentage of total leukocytesOrdered By: Ramonita Herron on 12-16-2024 Lymphocytes/100 WBC Auto (Unsp spec) 10.7 % Low 19-41 [facility] BUN/creatinine ratioOrdered By: Ramonita Herron on 12-16-2024 Urea nitrogen/Creatinine [Mass ratio] 21.8 mg/mg High 10-20 [facility] Basic Metabolic Profile (BMP )on 12-16-2024 BUN/CRE 21.8 RATIO High - [facility] Comment on above: Performed By: #### L 500.2500, L100.0100 ####[facility] [address] [place], [address] Calcium [Mass/Vol] 9.3 mg/dL Normal 7.6-11.0 [facility] Comment on above: Performed By: #### L 500.2500, L100.0100 ####[facility] [address] [place], [address] Chloride [Moles/Vol] 93 mmol/L Low 98-108 [facility] Comment on above: Performed By: #### L 500.2500, L100.0100 ####[facility] [address] [place], [address] CO2 [Moles/Vol] 19.2 mmol/L Low 21.0-32.0 [facility] Comment on above: Performed By: #### L 500.2500, L100.0100 ####[facility] [address] [place], [address] Creatinine [Mass/Vol] 2.65 mg/dL High 0.70-1.20 [facility] Comment on above: Performed By: #### L 500.2500, L100.0100 ####[facility] [address] [place], [address] ECRCL 25.90 ml/min Low 50-250 [facility] Comment on above: Performed By: #### L 500.2500, L100.0100 ####[facility] [address] [place], [address] GAP 18 High 5-15 [facility] Comment on above: Performed By: #### L 500.2500, L100.0100 ####[facility] [address] [place], [address] GFR/1.73 sq M.predicted among non-blacks MDRD (S/P/Bld) [Vol rate/Area] 24 mL/min/{1.73_m2} Low >60 [facility] Comment on above: Result Comment: mL/m in/1.73m2 CKD-EPI Creatinine Equation (2020) Performed By: #### L 500.2500, L100.0100 ####[facility] [address] [place], [address] Glucose [Mass/Vol] 182 mg/dL High 70-99 [facility] Comment on above: Performed By: #### L 500.2500, L100.0100 ####[facility] [address] [place], [address] Potassium [Moles/Vol] 3.8 mmol/L Normal 3.3-5.1 [facility] Comment on above: Performed By: #### L 500.2500, L100.0100 ####[facility] [address] [place], [address] Sodium [Moles/Vol] 131 mmol/L Low 133-145 [facility] Comment on above: Performed By: #### L 500.2500, L100.0100 ####[facility] [address] [place], [address] Urea nitrogen [Mass/Vol] 58 mg/dL High 4-19 [facility] Comment on above: Performed By: #### L 500.2500, L100.0100 ####[facility] [address] [place], [address] Basophil percentageOrdered B y: Ramonita Herron on 12-16-2024 Basophils/100 WBC (Bld) 0.2 % 0-1 [facility] Bedside Glucoseon 12-16-2024 FINGERSTICK GLU 215 mg/dL High 74-106 [facility] Comment on above: Result Comment: WILDA GEMENT OF PATIENT CARE PER NURSING PROTOCOL Performed By: #### L 501.080 ####[facility] [address] [place], [address] FINGERSTICK GLU 237 mg/dL High 74-106 [facility] Comment on above: Result Comment: WILDA GEMENT OF PATIENT CARE PER NURSING PROTOCOL Performed By: #### L 501.080 ####[facility] [address] [place], [address] FINGERSTICK GLU 152 mg/dL High 74-106 [facility] Comment on above: Result Comment: WILDA GEMENT OF PATIENT CARE PER NURSING PROTOCOL Performed By: #### L 501.080 ####[facility] [address] [place], [address] FINGERSTICK GLU 169 mg/dL High 74-106 [facility] Comment on above: Result Comment: WILDA GEMENT OF PATIENT CARE PER NURSING PROTOCOL Performed By: #### L 501.080 ####[facility] [address] [place], [address] CBC W/Diff, Automatedon 08-1 -2024 Absolute Lymph 0.93 X10 3/uL Normal 0.83-4.51 [facility] Comment on above: Performed By: #### L 500.2500, L100.0100 ####[facility] [address] [place], [address] Absolute Neut 6.6 X10 3/uL Normal 2.0-7.7 [facility] Comment on above: Performed By: #### L 500.2500, L100.0100 ####[facility] [address] [place], [address] Basophils/100 WBC (Bld) 0.2 % Normal 0-1 [facility] Comment on above: Performed By: #### L 500.2500, L100.0100 ####[facility] [address] [place], [address] Eosinophils/100 WBC (Bld) 0.5 % Normal 0-5 [facility] Comment on above: Performed By: #### L 500.2500, L100.0100 ####[facility] [address] [place], [address] Erythrocyte distribution width (RBC) [Ratio] 13.4 % Normal 11.6-14.6 [facility] Comment on above: Performed By: #### L 500.2500, L100.0100 ####[facility] [address] [place], [address] Hematocrit (Bld) [Volume fraction] 40.1 % Normal 40-54 [facility] Comment on above: Performed By: #### L 500.2500, L100.0100 ####[facility] [address] [place], [address] Hemoglobin (Bld) [Mass/Vol] 13.3 g/dL Normal 13.0-16.5 [facility] Comment on above: Performed By: #### L 500.2500, L100.0100 ####[facility] [address] [place], [address] IG% 0.800 Normal 0.0-0.9 [facility] Comment on above: Result Comment: IG% - Immature Granulocytes (promyelocytes, myelocytes andmetamyelocytes) > 1% indicates that a LEFT SHIFT is Present. Performed By: #### L 500.2500, L100.0100 ####[facility] [address] [place], [address] Lymphocytes/100 WBC (Bld) 10.7 % Low 19-41 [facility] Comment on above: Performed By: #### L 500.2500, L100.0100 ####[facility] [address] [place], [address] MCH (RBC) [Entitic mass] 28.6 pg Normal 27.0-32.0 [facility] Comment on above: Performed By: #### L 500.2500, L100.0100 ####[facility] [address] [place], [address] MCHC (RBC) [Mass/Vol] 33.2 g/dL Normal 32-36 [facility] Comment on above: Performed By: #### L 500.2500, L100.0100 ####[facility] [address] [place], [address] MCV (RBC) [Entitic vol] 86.2 fL Normal 80-94 [facility] Comment on above: Performed By: #### L 500.2500, L100.0100 ####[facility] [address] [place], [address] Monocytes/100 WBC (Bld) 12.1 % High 0-10 [facility] Comment on above: Performed By: #### L 500.2500, L100.0100 ####[facility] [address] [place], [address] Neutrophils/100 WBC (Bld) 75.7 % High 47-70 [facility] Comment on above: Performed By: #### L 500.2500, L100.0100 ####[facility] [address] [place], [address] Nucleated RBC (Bld) [#/Vol] 0 10*3/uL Normal 0-5 [facility] Comment on above: Performed By: #### L 500.2500, L100.0100 ####[facility] [address] [place], [address] Platelet mean volume (Bld) [Entitic vol] 13.2 fL High 6.2-12.0 [facility] Comment on above: Performed By: #### L 500.2500, L100.0100 ####[facility] [address] [place], [address] Platelets (Bld) [#/Vol] 181 10*3/uL Normal 150-450 [facility] Comment on above: Performed By: #### L 500.2500, L100.0100 ####[facility] [address] [place], [address] RBC (Bld) [#/Vol] 4.65 10*6/uL Normal 4.6-6.2 [facility] Comment on above: Performed By: #### L 500.2500, L100.0100 ####[facility] [address] [place], [address] RDW SD 42.2 fl Normal 35.1-43.9 [facility] Comment on above: Performed By: #### L 500.2500, L100.0100 ####[facility] [address] [place], [address] WBC (Bld) [#/Vol] 8.7 10*3/uL Normal 4.4-11.0 [facility] Comment on above: Performed By: #### L 500.2500, L100.0100 ####[facility] [address] [place], [address] Carbon dioxide, total [Moles /volume] in Central venous bloodOrdered By: Ramonita Herron on 12-16-2024 CO2 [Moles/Vol] 19.2 mmol/L Low 21.0-32.0 [facility] Chloride assayOrdered By: Parish Herron on 12-16-2024 Chloride [Moles/Vol] 93 mmol/L Low 98-108 [facility] Eosinophil percentageOrdered By: Ramonita Herron on 12-16-2024 Eosinophils/100 WBC (Bld) 0.5 % 0-5 [facility] Erythrocyte distribution wid th ratioOrdered By: Ramonita Herron on 12-16-2024 Erythrocyte distribution width (RBC) [Ratio] 13.4 % 11.6-14.6 [facility] Erythrocyte distribution wid th standard deviationOrdered By: Ramonita Herron on 12-16-2024 Erythrocyte distribution width (RBC) [Ratio] 42.2 fl 35.1-43.9 [facility] Glomerular filtration rate ( GFR) estimation/1.73 sq m using serum, plasma, or whole bOrdered By: Ramonita Herron on 12-16-2024 GFR/1.73 sq M.predicted among non-blacks MDRD (S/P/Bld) [Vol rate/Area] 24 mL/min/{1.73_m2} Low >60 [facility] Hematocrit Auto (Bld) [Volum e fraction]Ordered By: Ramonita Herron on 12-16-2024 Hematocrit (Bld) [Volume fraction] 40.1 % 40-54 [facility] Hemoglobin measurementOrdere d By: Ramonita Herron on 12-16-2024 Hemoglobin (Bld) [Mass/Vol] 13.3 g/dL 13.0-16.5 [facility] Immature granulocytes/100 WB C Auto (Bld)Ordered By: Ramonita Herron on 12-16-2024 Immature granulocytes/100 WBC (Bld) 0.800 % 0.0-0.9 [facility] MCV (mean corpuscular volume ) determinationOrdered By: Ramonita Herron on 12-16-2024 MCV (RBC) [Entitic vol] 86.2 fL 80-94 [facility] Mean corpuscular hemoglobin (MCH) determinationOrdered By: Ramonita Herron on 12-16-2024 MCH (RBC) [Entitic mass] 28.6 pg 27.0-32.0 [facility] Monocyte percentageOrdered B y: Ramonita Herron on 12-16-2024 Monocytes/100 WBC (Bld) 12.1 % High 0-10 [facility] Neutrophil percentageOrdered By: Ramonita Herron on 12-16-2024 Neutrophils/100 WBC (Bld) 75.7 % High 47-70 [facility] Platelet countOrdered By: Parish Herron on 12-16-2024 Platelets (Bld) [#/Vol] 181 10*3/uL 150-450 [facility] Potassium measurement (mass/ volume)Ordered By: Ramonita Herron on 12-16-2024 Potassium (Unsp spec) [Mass/Vol] 3.8 mmol/L 3.3-5.1 [facility] RBC Auto (Bld) [#/Vol]Ordere d By: Ramonita Herron on 12-16-2024 RBC (Bld) [#/Vol] 4.65 10*6/uL 4.6-6.2 [facility] Serum creatinine measurement (mass/volume)Ordered By: Ramonita Herron on 12-16-2024 Creatinine [Mass/Vol] 2.65 mg/dL High 0.70-1.20 [facility] Serum glucose measurement (m ass/volume)Ordered By: Ramonita Herron on 12-16-2024 Glucose [Mass/Vol] 182 mg/dL High 70-99 [facility] Serum or plasma calcium francine urement (mass/volume)Ordered By: Ramonita Herron on 12-16-2024 Calcium [Mass/Vol] 9.3 mg/dL 7.6-11.0 [facility] Serum or plasma urea nitroge n measurement (mass/volume)Ordered By: Ramonita Herron on 12-16-2024 Urea nitrogen [Mass/Vol] 58 mg/dL High 4-19 [facility] Sodium levelOrdered By: Mary Herron on 12-16-2024 Sodium [Moles/Vol] 131 mmol/L Low 133-145 [facility] White blood cell (WBC) count Ordered By: Ramonita Herron on 12-16-2024 WBC (Bld) [#/Vol] 8.7 10*3/uL 4.4-11.0 [facility] 12 Lead EKGon 12-15-2024 12 Lead EKG Normal [facility] Activated partial thrombopla stin time (aPTT) in platelet poor plasma by coagulation aOrdered By: Payal Weldon on 12-15-2024 aPTT Coag (PPP) [Time] 222.8 s High 24.1-36.2 [facility] Basic Metabolic Profile (BMP )on 12-15-2024 BUN/CRE 20.4 RATIO High 10-20 [facility] Comment on above: Performed By: #### L 100.0100, L300.4310, L300.3900, L503.7505, L500.2500, L501.4021 ####[facility] [address] [place], [address] Calcium [Mass/Vol] 9.5 mg/dL Normal 7.6-11.0 [facility] Comment on above: Performed By: #### L 100.0100, L300.4310, L300.3900, L503.7505, L500.2500, L501.4021 ####[facility] [address] [place], [address] Chloride [Moles/Vol] 91 mmol/L Low 98-108 [facility] Comment on above: Performed By: #### L 100.0100, L300.4310, L300.3900, L503.7505, L500.2500, L501.4021 ####[facility] [address] [place], [address] CO2 [Moles/Vol] 18.4 mmol/L Low 21.0-32.0 [facility] Comment on above: Performed By: #### L 100.0100, L300.4310, L300.3900, L503.7505, L500.2500, L501.4021 ####[facility] [address] [place], [address] Creatinine [Mass/Vol] 2.90 mg/dL High 0.70-1.20 [facility] Comment on above: Performed By: #### L 100.0100, L300.4310, L300.3900, L503.7505, L500.2500, L501.4021 ####[facility] [address] [place], [address] ECRCL 23.97 ml/min Low 50-250 [facility] Comment on above: Performed By: #### L 100.0100, L300.4310, L300.3900, L503.7505, L500.2500, L501.4021 ####[facility] [address] [place], [address] GAP 19 High 5-15 [facility] Comment on above: Performed By: #### L 100.0100, L300.4310, L300.3900, L503.7505, L500.2500, L501.4021 ####[facility] [address] [place], [address] GFR/1.73 sq M.predicted among non-blacks MDRD (S/P/Bld) [Vol rate/Area] 21 mL/min/{1.73_m2} Low >60 [facility] Comment on above: Result Comment: mL/m in/1.73m2 CKD-EPI Creatinine Equation (2020) Performed By: #### L 100.0100, L300.4310, L300.3900, L503.7505, L500.2500, L501.4021 ####[facility] [address] [place], [address] Glucose [Mass/Vol] 266 mg/dL High 70-99 [facility] Comment on above: Performed By: #### L 100.0100, L300.4310, L300.3900, L503.7505, L500.2500, L501.4021 ####[facility] [address] [place], [address] Potassium [Moles/Vol] 4.5 mmol/L Normal 3.3-5.1 [facility] Comment on above: Performed By: #### L 100.0100, L300.4310, L300.3900, L503.7505, L500.2500, L501.4021 ####[facility] [address] [place], [address] Sodium [Moles/Vol] 129 mmol/L Low 133-145 [facility] Comment on above: Performed By: #### L 100.0100, L300.4310, L300.3900, L503.7505, L500.2500, L501.4021 ####[facility] [address] [place], [address] Urea nitrogen [Mass/Vol] 59 mg/dL High 4-19 [facility] Comment on above: Performed By: #### L 100.0100, L300.4310, L300.3900, L503.7505, L500.2500, L501.4021 ####[facility] [address] [place], [address] Bedside Glucoseon 12-15-2024 FINGERSTICK GLU 192 mg/dL High 74-106 [facility] Comment on above: Result Comment: WILDA GEMENT OF PATIENT CARE PER NURSING PROTOCOL Performed By: #### L 501.080 ####[facility] [address] [place], [address] FINGERSTICK GLU 186 mg/dL High 74-106 [facility] Comment on above: Result Comment: WILDA GEMENT OF PATIENT CARE PER NURSING PROTOCOL Performed By: #### L 501.080 ####[facility] [address] [place], [address] CBC W/Diff, Automatedon 12-01 Absolute Lymph 1.43 X10 3/uL Normal 0.83-4.51 [facility] Comment on above: Performed By: #### L 100.0100, L300.4310, L300.3900, L503.7505, L500.2500, L501.4021 ####[facility] [address] [place], [address] Absolute Neut 11.7 X10 3/uL High 2.0-7.7 [facility] Comment on above: Performed By: #### L 100.0100, L300.4310, L300.3900, L503.7505, L500.2500, L501.4021 ####[facility] [address] [place], [address] Basophils/100 WBC (Bld) 0.2 % Normal 0-1 [facility] Comment on above: Performed By: #### L 100.0100, L300.4310, L300.3900, L503.7505, L500.2500, L501.4021 ####[facility] [address] [place], [address] Eosinophils/100 WBC (Bld) 0.1 % Normal 0-5 [facility] Comment on above: Performed By: #### L 100.0100, L300.4310, L300.3900, L503.7505, L500.2500, L501.4021 ####[facility] [address] [place], [address] Erythrocyte distribution width (RBC) [Ratio] 13.4 % Normal 11.6-14.6 [facility] Comment on above: Performed By: #### L 100.0100, L300.4310, L300.3900, L503.7505, L500.2500, L501.4021 ####[facility] [address] [place], [address] Hematocrit (Bld) [Volume fraction] 40.2 % Normal 40-54 [facility] Comment on above: Performed By: #### L 100.0100, L300.4310, L300.3900, L503.7505, L500.2500, L501.4021 ####[facility] [address] [place], [address] Hemoglobin (Bld) [Mass/Vol] 13.7 g/dL Normal 13.0-16.5 [facility] Comment on above: Performed By: #### L 100.0100, L300.4310, L300.3900, L503.7505, L500.2500, L501.4021 ####[facility] [address] [place], [address] IG% 0.800 Normal 0.0-0.9 [facility] Comment on above: Result Comment: IG% - Immature Granulocytes (promyelocytes, myelocytes andmetamyelocytes) > 1% indicates that a LEFT SHIFT is Present. Performed By: #### L 100.0100, L300.4310, L300.3900, L503.7505, L500.2500, L501.4021 ####[facility] [address] [place], [address] Lymphocytes/100 WBC (Bld) 9.7 % Low 19-41 [facility] Comment on above: Performed By: #### L 100.0100, L300.4310, L300.3900, L503.7505, L500.2500, L501.4021 ####[facility] [address] [place], [address] MCH (RBC) [Entitic mass] 29.0 pg Normal 27.0-32.0 [facility] Comment on above: Performed By: #### L 100.0100, L300.4310, L300.3900, L503.7505, L500.2500, L501.4021 ####[facility] [address] [place], [address] MCHC (RBC) [Mass/Vol] 34.1 g/dL Normal 32-36 [facility] Comment on above: Performed By: #### L 100.0100, L300.4310, L300.3900, L503.7505, L500.2500, L501.4021 ####[facility] [address] [place], [address] MCV (RBC) [Entitic vol] 85.2 fL Normal 80-94 [facility] Comment on above: Performed By: #### L 100.0100, L300.4310, L300.3900, L503.7505, L500.2500, L501.4021 ####[facility] [address] [place], [address] Monocytes/100 WBC (Bld) 9.9 % Normal 0-10 [facility] Comment on above: Performed By: #### L 100.0100, L300.4310, L300.3900, L503.7505, L500.2500, L501.4021 ####[facility] [address] [place], [address] Neutrophils/100 WBC (Bld) 79.3 % High 47-70 [facility] Comment on above: Performed By: #### L 100.0100, L300.4310, L300.3900, L503.7505, L500.2500, L501.4021 ####[facility] [address] [place], [address] Nucleated RBC (Bld) [#/Vol] 0 10*3/uL Normal 0-5 [facility] Comment on above: Performed By: #### L 100.0100, L300.4310, L300.3900, L503.7505, L500.2500, L501.4021 ####[facility] [address] [place], [address] Platelet mean volume (Bld) [Entitic vol] 13.4 fL High 6.2-12.0 [facility] Comment on above: Performed By: #### L 100.0100, L300.4310, L300.3900, L503.7505, L500.2500, L501.4021 ####[facility] [address] [place], [address] Platelets (Bld) [#/Vol] 242 10*3/uL Normal 150-450 [facility] Comment on above: Performed By: #### L 100.0100, L300.4310, L300.3900, L503.7505, L500.2500, L501.4021 ####[facility] [address] [place], [address] RBC (Bld) [#/Vol] 4.72 10*6/uL Normal 4.6-6.2 [facility] Comment on above: Performed By: #### L 100.0100, L300.4310, L300.3900, L503.7505, L500.2500, L501.4021 ####[facility] [address] [place], [address] RDW SD 41.6 fl Normal 35.1-43.9 [facility] Comment on above: Performed By: #### L 100.0100, L300.4310, L300.3900, L503.7505, L500.2500, L501.4021 ####[facility] [address] [place], [address] WBC (Bld) [#/Vol] 14.8 10*3/uL High 4.4-11.0 [facility] Comment on above: Performed By: #### L 100.0100, L300.4310, L300.3900, L503.7505, L500.2500, L501.4021 ####[facility] [address] [place], [address] Chest 1 View (Portable)on Chest 1 View (Portable) Normal [facility] Consultation - Cardiologyon 12-15-2024 Consultation - Cardiology Normal [facility] Echo, Limited Studyon 2024 Echo, Limited Study Normal [facility] Emergency Department Summary on 12-15-2024 Emergency Department Summary Normal [facility] H AND P Exam - Hospitaliston 12-15-2024 H&P Exam - Hospitalist Normal [facility] L501.4021on 12-15-2024 Trop T High Sen 1137 ng/L Invalid Interpretation Code <=22 [facility] Comment on above: Result Comment: Crit ical Result(s) Called at 1318: by: MONICA KOO.??Results read back by same. Performed By: #### L 100.0100, L300.4310, L300.3900, L503.7505, L500.2500, L501.4021 ####[facility] [address] [place], [address] Limited echocardiogram repor tOrdered By: Sunil Faye on 12-15-2024 Study report [facility] Natriuretic peptide.B prohor efrem N-Terminal [Mass/volume] in Serum or PlasmaOrdered By: Payal Weldon on 12-15-2024 Natriuretic peptide.B prohormone N-Terminal [Mass/Vol] 1961 pg/mL High <1800 [facility] Partial Thromboplast Timeon 12-15-2024 aPTT Coag (Bld) [Time] 222.8 s Invalid Interpretation Code 24.1-36.2 [facility] Comment on above: Order Comment: CRITI KENNEY VALUE CALLED TO sandy archer12/15/24 1355 Lexii Huynh.RESULTS READ BACK BY same Performed By: #### L 100.0100, L300.4310, L300.3900, L503.7505, L500.2500, L501.4021 ####[facility] [address] [place], [address] Pro- Brain NATRIURETIC PEPTI Sharon 12-15-2024 Natriuretic peptide B (Bld) [Mass/Vol] 1961 pg/mL High <=1800 [facility] Comment on above: Result Comment: Hear t Failure Unlikely: < 300 pg/mLHeart Failure Likely< 50 Years: > 450 pg/mL50-75 Years: > 900 pg/mL>75 Years: > 1800 pg/mL Performed By: #### L 100.0100, L300.4310, L300.3900, L503.7505, L500.2500, L501.4021 ####[facility] [address] [place], [address] Prothrombin Time w/INRon INR Coag (PPP) [Relative time] 1.3 {INR} Normal [facility] Comment on above: Order Comment: CRITI KENNEY VALUE [place] [facility]RESULTS READ BACK BY same Performed By: #### L 100.0100, L300.4310, L300.3900, L503.7505, L500.2500, L501.4021 ####[facility] [address] [place], [address] PT Coag (PPP) [Time] 16.8 s High 11.7-14.9 [facility] Comment on above: Order Comment: CRITI KENNEY VALUE [place] [facility] [place] 1355 Lexii Huynh.RESULTS READ BACK BY same Performed By: #### L 100.0100, L300.4310, L300.3900, L503.7505, L500.2500, L501.4021 ####[facility] [address] [place], [address] Prothrombin timeOrdered By: Payal Weldon on 12-15-2024 PT Coag (PPP) [Time] 16.8 s High 11.7-14.9 [facility] Troponin T HS 2 HRon 025 Trop T High Sen 1199 ng/L Invalid Interpretation Code <=22 [facility] Comment on above: Order Comment: WAS T O BE DRAWN AT 1411 STILL IN ER AT 1440 CALLED ER [facility] THEY'RE BUSY BUT SHELL ELT THE NURSE KNOW Result Comment: Crit ical Result(s) Called at 1718: by:MONICA ANTONIO. ??Results read back by same. Performed By: #### L 499.0042 ####[facility] [address] [place], [place], [address] Troponin T HS 4 HRon 025 Trop T High Sen 1115 ng/L Invalid Interpretation Code <=22 [facility] Comment on above: Result Comment: Crit ical result called 12/15/2024-20:19 by Seymour Mcclure. Results read back by same.Hemolysis present, Results??could be affected.??Critical Result(s) Called at: by:??Results read back bysa. Performed By: #### L 499.0043 ####[facility] [address] [place], [address] Troponin T.cardiac [Mass/vol ume] in Serum or Plasma by High sensitivity methodOrdered By: Payal Weldon on 12-15-2024 Troponin T.cardiac High sensitivity method [Mass/Vol] 1115 ng/L High <22 [facility] Troponin T.cardiac High sensitivity method [Mass/Vol] 1199 ng/L High <22 [facility] Troponin T.cardiac High sensitivity method [Mass/Vol] 1137 ng/L High <22 [facility] Cardiac Cath Interventionon 12-14-2024 Cardiac Cath Intervention Normal [facility] Absolute lymphocyte countOrd ered By: Boyd Rock on 12-13-2024 Lymphocytes Auto (Unsp spec) [#/Vol] 1.28 10*3/uL 0.83-4.51 [facility] Anion gap in Serum or Plasma Ordered By: Boyd Rock on 12-13-2024 Anion gap [Moles/Vol] 21 mmol/L High 5-15 [facility] Automated lymphocyte count a s percentage of total leukocytesOrdered By: Boyd Rock on 12-13-2024 Lymphocytes/100 WBC Auto (Unsp spec) 9.3 % Low 19-41 [facility] BUN/creatinine ratioOrdered By: Boyd Rock on 12-13-2024 Urea nitrogen/Creatinine [Mass ratio] 18.7 mg/mg 10-20 [facility] Basophil percentageOrdered B y: Boyd Rock on 12-13-2024 Basophils/100 WBC (Bld) 0.4 % 0-1 [facility] Bilirubin, totalOrdered By: Boyd Rock on 12-13-2024 Bilirubin [Mass/Vol] 1.60 mg/dL High 0.00-1.30 [facility] Carbon dioxide, total [Moles /volume] in Central venous bloodOrdered By: Boyd Rock on 12-13-2024 CO2 [Moles/Vol] 15.7 mmol/L Low 21.0-32.0 [facility] Chloride assayOrdered By: uSsanna Rock on 12-13-2024 Chloride [Moles/Vol] 93 mmol/L Low 98-108 [facility] Eosinophil percentageOrdered By: Boyd Rock 12-13-2024 Eosinophils/100 WBC (Bld) 1.5 % 0-5 [facility] Erythrocyte distribution wid th ratioOrdered By: andrés Rock on 12-13-2024 Erythrocyte distribution width (RBC) [Ratio] 14.3 % 11.6-14.6 [facility] Erythrocyte distribution wid th standard deviationOrdered By: Lupebergheimbrittni Rock on 12-13-2024 Erythrocyte distribution width (RBC) [Ratio] 45.2 fl High 35.1-43.9 [facility] Glomerular filtration rate ( GFR) estimation/1.73 sq m using serum, plasma, or whole bOrdered By: Boyd Rock on 12-13-2024 GFR/1.73 sq M.predicted among non-blacks MDRD (S/P/Bld) [Vol rate/Area] 19 mL/min/{1.73_m2} Low >60 [facility] Hematocrit Auto (Bld) [Volum e fraction]Ordered By: Boyd Rock 12-13-2024 Hematocrit (Bld) [Volume fraction] 35.9 % Low 40-54 [facility] Hemoglobin measurementOrdere d By: Boyd Rock on 12-13-2024 Hemoglobin (Bld) [Mass/Vol] 11.8 g/dL Low 13.0-16.5 [facility] Immature granulocytes/100 WB C Auto (Bld)Ordered By: Boyd Rock 12-13-2024 Immature granulocytes/100 WBC (Bld) 0.700 % 0.0-0.9 [facility] MCV (mean corpuscular volume ) determinationOrdered By: Boyd Rock 12-13-2024 MCV (RBC) [Entitic vol] 87.6 fL 80-94 [facility] Mean corpuscular hemoglobin (MCH) determinationOrdered By: Boyd Rock on 12-13-2024 MCH (RBC) [Entitic mass] 28.8 pg 27.0-32.0 [facility] Monocyte percentageOrdered B y: Boyd Rock on 12-13-2024 Monocytes/100 WBC (Bld) 8.7 % 0-10 [facility] Neutrophil percentageOrdered By: Boyd Rock on 12-13-2024 Neutrophils/100 WBC (Bld) 79.4 % High 47-70 [facility] No Panel InformationOrdered By: Boyd Rock on 12-13-2024 29 U/L <38 [facility] Platelet countOrdered By: Susanna Rock on 12-13-2024 Platelets (Bld) [#/Vol] 199 10*3/uL 150-450 [facility] Potassium measurement (mass/ volume)Ordered By: Boyd Rock on 12-13-2024 Potassium (Unsp spec) [Mass/Vol] 5.1 mmol/L 3.3-5.1 [facility] RBC Auto (Bld) [#/Vol]Ordere d By: Boyd Rock on 12-13-2024 RBC (Bld) [#/Vol] 4.10 10*6/uL Low 4.6-6.2 [facility] Serum creatinine measurement (mass/volume)Ordered By: Boyd Rock on 12-13-2024 Creatinine [Mass/Vol] 3.18 mg/dL High 0.70-1.20 [facility] Serum globulin measurementOr dered By: Boyd Rock on 12-13-2024 Globulin (S) [Mass/Vol] 4.2 g/dL 2.2-4.2 [facility] Serum glucose measurement (m ass/volume)Ordered By: Boyd Rock on 12-13-2024 Glucose [Mass/Vol] 289 mg/dL High 70-99 [facility] Serum or plasma alanine guerrero otransferase (ALT) measurementOrdered By: Boyd Rock on 12-13-2024 ALT [Catalytic activity/Vol] 22 U/L <47 [facility] Serum or plasma albumin francine urement (mass/volume)Ordered By: Boyd Rock on 12-13-2024 Albumin [Mass/Vol] 4.1 g/dL 3.4-4.8 [facility] Serum or plasma albumin/glob ulin mass ratioOrdered By: Boyd Castañedamiveronica on 12-13-2024 Albumin/Globulin [Mass ratio] 1.0 {ratio} 0.9-2.4 [facility] Serum or plasma alkaline bell sphatase measurementOrdered By: Boyd Rock on 12-13-2024 ALP [Catalytic activity/Vol] 147 U/L High 40-129 [facility] Serum or plasma calcium francine urement (mass/volume)Ordered By: Boyd Rock on 12-13-2024 Calcium [Mass/Vol] 9.7 mg/dL 7.6-11.0 [facility] Serum or plasma urea nitroge n measurement (mass/volume)Ordered By: Boyd Rock on 12-13-2024 Urea nitrogen [Mass/Vol] 59 mg/dL High 4-19 [facility] Sodium levelOrdered By: Lupe tesha Garrymiveronica on 12-13-2024 Sodium [Moles/Vol] 130 mmol/L Low 133-145 [facility] T4 freeOrdered By: Lupeabbeybrittni Castañedamiveronica on 12-13-2024 Free T4 [Mass/Vol] 1.40 ng/dL 0.76-1.46 [facility] Total proteinOrdered By: Anastacio lillianbrittni Rokc on 12-13-2024 Protein [Mass/Vol] 8.3 g/dL 5.9-8.4 [facility] White blood cell (WBC) count Ordered By: Boyd Rock on 12-13-2024 WBC (Bld) [#/Vol] 13.7 10*3/uL High 4.4-11.0 [facility] Anion gap in Serum or Plasma Ordered By: Gustabo Pérez on 12-12-2024 Anion gap [Moles/Vol] 17 mmol/L High 5-15 [facility] BUN/creatinine ratioOrdered By: Gustabo Pérez on 12-12-2024 Urea nitrogen/Creatinine [Mass ratio] 17.9 mg/mg 10- [facility] Basic Metabolic Profile (BMP )on 12-12-2024 BUN/CRE 17.9 RATIO Normal - [facility] Comment on above: Performed By: #### L 500.2500 ####[facility] [address] [place], [address] Calcium [Mass/Vol] 9.6 mg/dL Normal 7.6-11.0 [facility] Comment on above: Performed By: #### L 500.2500 ####[facility] [address] [place], [address] Chloride [Moles/Vol] 93 mmol/L Low 98-108 [facility] Comment on above: Performed By: #### L 500.2500 ####[facility] [address] [place], [address] CO2 [Moles/Vol] 18.2 mmol/L Low 21.0-32.0 [facility] Comment on above: Performed By: #### L 500.2500 ####[facility] [address] [place], [address] Creatinine [Mass/Vol] 3.15 mg/dL High 0.70-1.20 [facility] Comment on above: Performed By: #### L 500.2500 ####[facility] [address] [place], [address] GAP 17 High 5-15 [facility] Comment on above: Performed By: #### L 500.2500 ####[facility] [address] [place], [address] GFR/1.73 sq M.predicted among non-blacks MDRD (S/P/Bld) [Vol rate/Area] 19 mL/min/{1.73_m2} Low >60 [facility] Comment on above: Result Comment: mL/m in/1.73m2 CKD-EPI Creatinine Equation (2020) Performed By: #### L 500.2500 ####[facility] [address] [place], [address] Glucose [Mass/Vol] 289 mg/dL High 70-99 [facility] Comment on above: Performed By: #### L 500.2500 ####[facility] [address] [place], [address] Potassium [Moles/Vol] 5.0 mmol/L Normal 3.3-5.1 [facility] Comment on above: Result Comment: Hemo lysis present, Results??could be affected.?? Performed By: #### L 500.2500 ####[facility] [address] [place], [address] Sodium [Moles/Vol] 128 mmol/L Low 133-145 [facility] Comment on above: Performed By: #### L 500.2500 ####[facility] [address] [place], [address] Urea nitrogen [Mass/Vol] 56 mg/dL High 4-19 [facility] Comment on above: Performed By: #### L 500.2500 ####[facility] [address] [place], [address] Carbon dioxide, total [Moles /volume] in Central venous bloodOrdered By: Gustabo Pérez on 12-12-2024 CO2 [Moles/Vol] 18.2 mmol/L Low 21.0-32.0 [facility] Cardiology Visit Reporton Cardiology Visit Report Normal [facility] Chloride assayOrdered By: Lydia Pérez on 12-12-2024 Chloride [Moles/Vol] 93 mmol/L Low 98-108 [facility] Glomerular filtration rate ( GFR) estimation/1.73 sq m using serum, plasma, or whole bOrdered By: Gustabo Pérez on 12-12-2024 GFR/1.73 sq M.predicted among non-blacks MDRD (S/P/Bld) [Vol rate/Area] 19 mL/min/{1.73_m2} Low >60 [facility] Potassium measurement (mass/ volume)Ordered By: Gustabo Pérez on 12-12-2024 Potassium (Unsp spec) [Mass/Vol] 5.0 mmol/L 3.3-5.1 [facility] Serum creatinine measurement (mass/volume)Ordered By: Gustabo Pérez on 12-12-2024 Creatinine [Mass/Vol] 3.15 mg/dL High 0.70-1.20 [facility] Serum glucose measurement (m ass/volume)Ordered By: Gustabo Pérez on 12-12-2024 Glucose [Mass/Vol] 289 mg/dL High 70-99 [facility] Serum or plasma calcium francine urement (mass/volume)Ordered By: Gustabo Pérez on 12-12-2024 Calcium [Mass/Vol] 9.6 mg/dL 7.6-11.0 [facility] Serum or plasma urea nitroge n measurement (mass/volume)Ordered By: Gustabo Pérez on 12-12-2024 Urea nitrogen [Mass/Vol] 56 mg/dL High 4-19 [facility] Sodium levelOrdered By: Gustabo Pérez on 12-12-2024 Sodium [Moles/Vol] 128 mmol/L Low 133-145 [facility] Cardiac Cath Interventionon 12-11-2024 Cardiac Cath Intervention Normal [facility] Absolute lymphocyte countOrd ered By: Shaan Santos on 12-08-2024 Lymphocytes Auto (Unsp spec) [#/Vol] 1.20 10*3/uL 0.83-4.51 [facility] Anion gap in Serum or Plasma Ordered By: Shaan Santos on 12-08-2024 Anion gap [Moles/Vol] 18 mmol/L High 5-15 [facility] Automated lymphocyte count a s percentage of total leukocytesOrdered By: Shaan Santos on 12-08-2024 Lymphocytes/100 WBC Auto (Unsp spec) 11.4 % Low 19-41 [facility] BUN/creatinine ratioOrdered By: Shaan Santos on 12-08-2024 Urea nitrogen/Creatinine [Mass ratio] 15.6 mg/mg 10-20 [facility] Basic Metabolic Profile (BMP )on 12-08-2024 BUN/CRE 15.6 RATIO Normal 10-20 [facility] Comment on above: Performed By: #### L 100.0100, L500.2500 ####[facility] [address] [place], [address] Calcium [Mass/Vol] 9.6 mg/dL Normal 7.6-11.0 [facility] Comment on above: Performed By: #### L 100.0100, L500.2500 ####[facility] [address] [place], [address] Chloride [Moles/Vol] 95 mmol/L Low 98-108 [facility] Comment on above: Performed By: #### L 100.0100, L500.2500 ####[facility] [address] [place], [address] CO2 [Moles/Vol] 21.2 mmol/L Normal 21.0-32.0 [facility] Comment on above: Performed By: #### L 100.0100, L500.2500 ####[facility] [address] [place], [address] Creatinine [Mass/Vol] 2.84 mg/dL High 0.70-1.20 [facility] Comment on above: Performed By: #### L 100.0100, L500.2500 ####[facility] [address] [place], [address] ECRCL 24.45 ml/min Low 50-250 [facility] Comment on above: Performed By: #### L 100.0100, L500.2500 ####[facility] [address] [place], [address] GAP 18 High 5-15 [facility] Comment on above: Performed By: #### L 100.0100, L500.2500 ####[facility] [address] [place], [address] GFR/1.73 sq M.predicted among non-blacks MDRD (S/P/Bld) [Vol rate/Area] 22 mL/min/{1.73_m2} Low >60 [facility] Comment on above: Result Comment: mL/m in/1.73m2 CKD-EPI Creatinine Equation (2020) Performed By: #### L 100.0100, L500.2500 ####[facility] [address] [place], [address] Glucose [Mass/Vol] 178 mg/dL High 70-99 [facility] [facility] Comment on above: Performed By: #### L 100.0100, L500.2500 ####[facility] [address] [place], [address] Potassium [Moles/Vol] 3.4 mmol/L Normal 3.3-5.1 [facility] Comment on above: Performed By: #### L 100.0100, L500.2500 ####[facility] [address] [place], [address] Sodium [Moles/Vol] 134 mmol/L Normal 133-145 [facility] Comment on above: Performed By: #### L 100.0100, L500.2500 ####[facility] [address] [place], [address] Urea nitrogen [Mass/Vol] 44 mg/dL High 4-19 [facility] Comment on above: Performed By: #### L 100.0100, L500.2500 ####[facility] [address] [place], [address] BUN Normal 4-19 [facility] Comment on above: Result Comment: [employer] crews via OM: Order cancelled - Patient discharged Performed By: #### L 500.2500, L100.0100 ####[facility] [address] [place], [address] BUN/CRE Normal 10-20 [facility] Comment on above: Result Comment: Canc elled via OM: Order cancelled - Patient discharged Performed By: #### L 500.2500, L100.0100 ####[facility] [address] [place], [address] Calcium Normal 7.6-11.0 [facility] Comment on above: Result Comment: Canc elled via OM: Order cancelled - Patient discharged Performed By: #### L 500.2500, L100.0100 ####[facility] [address] [place], [address] CL Normal 98-108 [facility] Comment on above: Result Comment: Canc elled via OM: Order cancelled - Patient discharged Performed By: #### L 500.2500, L100.0100 ####[facility] [address] [place], [address] CO2 Normal 21.0-32.0 [facility] Comment on above: Result Comment: Canc elled via OM: Order cancelled - Patient discharged Performed By: #### L 500.2500, L100.0100 ####[facility] [address] [place], [address] CREAT,SERUM Normal 0.70-1.20 [facility] Comment on above: Result Comment: Canc elled via OM: Order cancelled - Patient discharged Performed By: #### L 500.2500, L100.0100 ####[facility] [address] [place], [address] eGFR Normal >60 [facility] Comment on above: Result Comment: Canc elled via OM: Order cancelled - Patient discharged Performed By: #### L 500.2500, L100.0100 ####[facility] [address] [place], [address] GAP Normal 5-15 [facility] Comment on above: Result Comment: Canc elled via OM: Order cancelled - Patient discharged Performed By: #### L 500.2500, L100.0100 ####[facility] [address] [place], [address] GLU Normal 70-99 [facility] Comment on above: Result Comment: Canc elled via OM: Order cancelled - Patient discharged Performed By: #### L 500.2500, L100.0100 ####[facility] [address] [place], [address] Potassium Normal 3.3-5.1 [facility] Comment on above: Result Comment: Canc elled via OM: Order cancelled - Patient discharged Performed By: #### L 500.2500, L100.0100 ####[facility] [address] [place], [address] Basic Metabolic Profile (BMP) Normal 133-145 [facility] Comment on above: Result Comment: Canc elled via OM: Order cancelled - Patient discharged Performed By: #### L 500.2500, L100.0100 ####[facility] [address] [place], [address] Basophil percentageOrdered B y: Shaan Santos on 12-08-2024 Basophils/100 WBC (Bld) 0.5 % 0-1 [facility] Bedside Glucoseon 12-08-2024 FINGERSTICK GLU 249 mg/dL High 74-106 [facility] Comment on above: Result Comment: WILDA GEMENT OF PATIENT CARE PER NURSING PROTOCOL Performed By: #### L 501.080 ####[facility] [address] [place], [address] FINGERSTICK GLU 185 mg/dL High 74-106 [facility] Comment on above: Result Comment: WILDA GEMENT OF PATIENT CARE PER NURSING PROTOCOL Performed By: #### L 501.080 ####[facility] [address] [place], [address] FINGERSTICK GLU 222 mg/dL High 74-106 [facility] Comment on above: Result Comment: WILDA GEMENT OF PATIENT CARE PER NURSING PROTOCOL Performed By: #### L 501.080 ####[facility] [address] [place], [address] CBC W/Diff, Automatedon 08-0 8-2024 Absolute Lymph 1.20 X10 3/uL Normal 0.83-4.51 [facility] Comment on above: Performed By: #### L 100.0100, L500.2500 ####[facility] [address] [place], [address] Absolute Neut 7.8 X10 3/uL High 2.0-7.7 [facility] Comment on above: Performed By: #### L 100.0100, L500.2500 ####[facility] [address] [place], [address] Basophils/100 WBC (Bld) 0.5 % Normal 0-1 [facility] Comment on above: Performed By: #### L 100.0100, L500.2500 ####[facility] [address] [place], [address] Eosinophils/100 WBC (Bld) 1.0 % Normal 0-5 [facility] Comment on above: Performed By: #### L 100.0100, L500.2500 ####[facility] [address] [place], [address] Erythrocyte distribution width (RBC) [Ratio] 13.4 % Normal 11.6-14.6 [facility] Comment on above: Performed By: #### L 100.0100, L500.2500 ####[facility] [address] [place], [address] Hematocrit (Bld) [Volume fraction] 39.2 % Low 40-54 [facility] Comment on above: Performed By: #### L 100.0100, L500.2500 ####[facility] [address] [place], [address] Hemoglobin (Bld) [Mass/Vol] 12.9 g/dL Low 13.0-16.5 [facility] Comment on above: Performed By: #### L 100.0100, L500.2500 ####[facility] [address] [place], [address] IG% 0.900 Normal 0.0-0.9 [facility] Comment on above: Result Comment: IG% - Immature Granulocytes (promyelocytes, myelocytes andmetamyelocytes) > 1% indicates that a LEFT SHIFT is Present. Performed By: #### L 100.0100, L500.2500 ####[facility] [address] [place], [address] Lymphocytes/100 WBC (Bld) 11.4 % Low 19-41 [facility] Comment on above: Performed By: #### L 100.0100, L500.2500 ####[facility] [address] [place], [address] MCH (RBC) [Entitic mass] 28.9 pg Normal 27.0-32.0 [facility] Comment on above: Performed By: #### L 100.0100, L500.2500 ####[facility] [address] [place], [address] MCHC (RBC) [Mass/Vol] 32.9 g/dL Normal 32-36 [facility] Comment on above: Performed By: #### L 100.0100, L500.2500 ####[facility] [address] [place], [address] MCV (RBC) [Entitic vol] 87.7 fL Normal 80-94 [facility] Comment on above: Performed By: #### L 100.0100, L500.2500 ####[facility] [address] [place], [address] Monocytes/100 WBC (Bld) 12.1 % High 0-10 [facility] Comment on above: Performed By: #### L 100.0100, L500.2500 ####[facility] [address] [place], [address] Neutrophils/100 WBC (Bld) 74.1 % High 47-70 [facility] Comment on above: Performed By: #### L 100.0100, L500.2500 ####[facility] [address] [place], [address] Nucleated RBC (Bld) [#/Vol] 0 10*3/uL Normal 0-5 [facility] Comment on above: Performed By: #### L 100.0100, L500.2500 ####[facility] [address] [place], [address] Platelet mean volume (Bld) [Entitic vol] 13.2 fL High 6.2-12.0 [facility] Comment on above: Performed By: #### L 100.0100, L500.2500 ####[facility] [address] [place], [address] Platelets (Bld) [#/Vol] 178 10*3/uL Normal 150-450 [facility] Comment on above: Performed By: #### L 100.0100, L500.2500 ####[facility] [address] [place], [address] RBC (Bld) [#/Vol] 4.47 10*6/uL Low 4.6-6.2 [facility] Comment on above: Performed By: #### L 100.0100, L500.2500 ####[facility] [address] [place], [address] RDW SD 42.8 fl Normal 35.1-43.9 [facility] Comment on above: Performed By: #### L 100.0100, L500.2500 ####[facility] [address] [place], [address] WBC (Bld) [#/Vol] 10.5 10*3/uL Normal 4.4-11.0 [facility] Comment on above: Performed By: #### L 100.0100, L500.2500 ####[facility] [address] [place], [address] Absolute Neut Normal 2.0-7.7 [facility] Comment on above: Result Comment: Canc elled via OM: Order cancelled - Patient discharged Performed By: #### L 500.2500, L100.0100 ####[facility] [address] [place], [address] HCT Normal 40-54 [facility] Comment on above: Result Comment: Canc elled via OM: Order cancelled - Patient discharged Performed By: #### L 500.2500, L100.0100 ####[facility] [address] [place], [address] HGB Normal 13.0-16.5 [facility] Comment on above: Result Comment: Canc elled via OM: Order cancelled - Patient discharged Performed By: #### L 500.2500, L100.0100 ####[facility] [address] [place], [address] MCH Normal 27.0-32.0 [facility] Comment on above: Result Comment: Canc elled via OM: Order cancelled - Patient discharged Performed By: #### L 500.2500, L100.0100 ####[facility] [address] [place], [address] MCHC Normal 32-36 [facility] Comment on above: Result Comment: Canc elled via OM: Order cancelled - Patient discharged Performed By: #### L 500.2500, L100.0100 ####[facility] [address] [place], [address] MCV Normal 80-94 [facility] Comment on above: Result Comment: Canc elled via OM: Order cancelled - Patient discharged Performed By: #### L 500.2500, L100.0100 ####[facility] [address] [place], [address] NEUT% Normal 47-70 [facility] Comment on above: Result Comment: Canc elled via OM: Order cancelled - Patient discharged Performed By: #### L 500.2500, L100.0100 ####[facility] [address] [place], [address] PLT Normal 150-450 [facility] Comment on above: Result Comment: Canc elled via OM: Order cancelled - Patient discharged Performed By: #### L 500.2500, L100.0100 ####[facility] [address] [place], [address] RBC Normal 4.6-6.2 [facility] Comment on above: Result Comment: Canc elled via OM: Order cancelled - Patient discharged Performed By: #### L 500.2500, L100.0100 ####[facility] [address] [place], [address] RDW CV Normal 11.6-14.6 [facility] Comment on above: Result Comment: Canc elled via OM: Order cancelled - Patient discharged Performed By: #### L 500.2500, L100.0100 ####[facility] [address] [place], [address] RDW SD Normal 35.1-43.9 [facility] Comment on above: Result Comment: Canc elled via OM: Order cancelled - Patient discharged Performed By: #### L 500.2500, L100.0100 ####[facility] [address] [place], [address] WBC Normal 4.4-11.0 [facility] Comment on above: Result Comment: Canc elled via OM: Order cancelled - Patient discharged Performed By: #### L 500.2500, L100.0100 ####[facility] [address] [place], [address] Carbon dioxide, total [Moles /volume] in Central venous bloodOrdered By: Shaan Santos on 12-08-2024 CO2 [Moles/Vol] 21.2 mmol/L 21.0-32.0 [facility] Chloride assayOrdered By: Charlie Santos on 12-08-2024 Chloride [Moles/Vol] 95 mmol/L Low 98-108 [facility] Eosinophil percentageOrdered By: Shaan Santos on 12-08-2024 Eosinophils/100 WBC (Bld) 1.0 % 0-5 [facility] Erythrocyte distribution wid th ratioOrdered By: Shaan Santos on 12-08-2024 Erythrocyte distribution width (RBC) [Ratio] 13.4 % 11.6-14.6 [facility] Erythrocyte distribution wid th standard deviationOrdered By: Shaan Santos on 12-08-2024 Erythrocyte distribution width (RBC) [Ratio] 42.8 fl 35.1-43.9 [facility] Glomerular filtration rate ( GFR) estimation/1.73 sq m using serum, plasma, or whole bOrdered By: Shaan Santos on 12-08-2024 GFR/1.73 sq M.predicted among non-blacks MDRD (S/P/Bld) [Vol rate/Area] 22 mL/min/{1.73_m2} Low >60 [facility] Gl[facility] at [facility] deOrdered By: Alex Sanon on 12-08-2024 Glucose [Mass/Vol] 249 mg/dL High 74-106 [facility] Hematocrit Auto (Bld) [Volum e fraction]Ordered By: Shaan Santos on 12-08-2024 Hematocrit (Bld) [Volume fraction] 39.2 % Low 40-54 [facility] Hemoglobin measurementOrdere d By: Shaan Santos on 12-08-2024 Hemoglobin (Bld) [Mass/Vol] 12.9 g/dL Low 13.0-16.5 [facility] Immature granulocytes/100 WB C Auto (Bld)Ordered By: Shaan Santos on 12-08-2024 Immature granulocytes/100 WBC (Bld) 0.900 % 0.0-0.9 [facility] MCV (mean corpuscular volume ) determinationOrdered By: Shaan Santos on 12-08-2024 MCV (RBC) [Entitic vol] 87.7 fL 80-94 [facility] Mean corpuscular hemoglobin (MCH) determinationOrdered By: Shaan Santos on 12-08-2024 MCH (RBC) [Entitic mass] 28.9 pg 27.0-32.0 [facility] Monocyte percentageOrdered B y: Shaan Santos on 12-08-2024 Monocytes/100 WBC (Bld) 12.1 % High 0-10 [facility] Neutrophil percentageOrdered By: Shaan Santos on 12-08-2024 Neutrophils/100 WBC (Bld) 74.1 % High 47-70 [facility] Platelet countOrdered By: Charlie Santos on 12-08-2024 Platelets (Bld) [#/Vol] 178 10*3/uL 150-450 [facility] Potassium measurement (mass/ volume)Ordered By: Shaan Santos on 12-08-2024 Potassium (Unsp spec) [Mass/Vol] 3.4 mmol/L 3.3-5.1 [facility] RBC Auto (Bld) [#/Vol]Ordere d By: Shaan Santos on 12-08-2024 RBC (Bld) [#/Vol] 4.47 10*6/uL Low 4.6-6.2 [facility] Serum creatinine measurement (mass/volume)Ordered By: Shaan Santos on 12-08-2024 Creatinine [Mass/Vol] 2.84 mg/dL High 0.70-1.20 [facility] Serum glucose measurement (m ass/volume)Ordered By: Shaan Santos on 12-08-2024 Glucose [Mass/Vol] 178 mg/dL High 70-99 [facility] Serum or plasma calcium francine urement (mass/volume)Ordered By: Shaan Santos on 12-08-2024 Calcium [Mass/Vol] 9.6 mg/dL 7.6-11.0 [facility] Serum or plasma urea nitroge n measurement (mass/volume)Ordered By: Shaan Santos on 12-08-2024 Urea nitrogen [Mass/Vol] 44 mg/dL High 4- [facility] Sodium levelOrdered By: Shaan Santos on 12-08-2024 Sodium [Moles/Vol] 134 mmol/L 133-145 [facility] White blood cell (WBC) count Ordered By: Shaan Santos on 12-08-2024 WBC (Bld) [#/Vol] 10.5 10*3/uL 4.4-11.0 [facility] 12 Lead EKGon 12-07-2024 12 Lead EKG Normal [facility] Absolute lymphocyte countOrd ered By: Juli German on 12-07-2024 Lymphocytes Auto (Unsp spec) [#/Vol] 0.94 10*3/uL 0.83-4.51 [facility] Absolute lymphocyte countOrd ered By: Boyd Rock on 12-07-2024 Lymphocytes Auto (Unsp spec) [#/Vol] 1.19 10*3/uL 0.83-4.51 [facility] Anion gap in Serum or Plasma Ordered By: Juli German on 12-07-2024 Anion gap [Moles/Vol] 18 mmol/L High 09-14 [facility] Anion gap in Serum or Plasma Ordered By: Boyd Rock on 12-07-2024 Anion gap [Moles/Vol] 16 mmol/L High - [facility] Automated lymphocyte count a s percentage of total leukocytesOrdered By: Juli German on 12-07-2024 Lymphocytes/100 WBC Auto (Unsp spec) 7.9 % Low [facility] Automated lymphocyte count a s percentage of total leukocytesOrdered By: Boyd Rock on 12-07-2024 Lymphocytes/100 WBC Auto (Unsp spec) 11.4 % Low - [facility] BUN/creatinine ratioOrdered By: Juli Geramn on 12-07-2024 Urea nitrogen/Creatinine [Mass ratio] 14.5 mg/mg 10-20 [facility] BUN/creatinine ratioOrdered By: Boyd Rock on 12-07-2024 Urea nitrogen/Creatinine [Mass ratio] 15.3 mg/mg - [facility] Basic Metabolic Profile (BMP )on 12-07-2024 BUN/CRE 14.5 RATIO Normal 02-19 [facility] Comment on above: Performed By: #### L 501.4021, L100.0100, L500.2500 ####[facility] [address] [place], [address] Calcium [Mass/Vol] 9.5 mg/dL Normal 7.6-11.0 [facility] Comment on above: Performed By: #### L 501.4021, L100.0100, L500.2500 ####[facility] [address] [place], [address] Chloride [Moles/Vol] 94 mmol/L Low 98-108 [facility] Comment on above: Performed By: #### L 501.4021, L100.0100, L500.2500 ####[facility] [address] [place], [address] CO2 [Moles/Vol] 20.9 mmol/L Low 21.0-32.0 [facility] Comment on above: Performed By: #### L 501.4021, L100.0100, L500.2500 ####[facility] [address] [place], [address] Creatinine [Mass/Vol] 2.76 mg/dL High 0.70-1.20 [facility] Comment on above: Performed By: #### L 501.4021, L100.0100, L500.2500 ####[facility] [address] [place], [address] ECRCL 25.62 ml/min Low 50-250 [facility] Comment on above: Performed By: #### L 501.4021, L100.0100, L500.2500 ####[facility] [address] [place], [address] GAP 18 High 5-15 [facility] Comment on above: Performed By: #### L 501.4021, L100.0100, L500.2500 ####[facility] [address] [place], [address] GFR/1.73 sq M.predicted among non-blacks MDRD (S/P/Bld) [Vol rate/Area] 23 mL/min/{1.73_m2} Low >60 [facility] Comment on above: Result Comment: mL/m in/1.73m2 CKD-EPI Creatinine Equation (2020) Performed By: #### L 501.4021, L100.0100, L500.2500 ####[facility] [address] [place], [address] Glucose [Mass/Vol] 209 mg/dL High 70-99 [facility] Comment on above: Performed By: #### L 501.4021, L100.0100, L500.2500 ####[facility] [address] [place], [address] Potassium [Moles/Vol] 4.1 mmol/L Normal 3.3-5.1 [facility] Comment on above: Performed By: #### L 501.4021, L100.0100, L500.2500 ####[facility] [address] [place], [address] Sodium [Moles/Vol] 132 mmol/L Low 133-145 [facility] Comment on above: Performed By: #### L 501.4021, L100.0100, L500.2500 ####[facility] [address] [place], [address] Urea nitrogen [Mass/Vol] 40 mg/dL High 4-19 [facility] Comment on above: Performed By: #### L 501.4021, L100.0100, L500.2500 ####[facility] [address] [place], [address] BUN Normal 4-19 [facility] Comment on above: Result Comment: Canc elled via OM: Order cancelled - Patient discharged Performed By: #### L 500.2500, L100.0100 ####[facility] [address] [place], [address] BUN/CRE Normal 10-20 [facility] Comment on above: Result Comment: Canc elled via OM: Order cancelled - Patient discharged Performed By: #### L 500.2500, L100.0100 ####[facility] [address] [place], [address] Calcium Normal 7.6-11.0 [facility] Comment on above: Result Comment: Canc elled via OM: Order cancelled - Patient discharged Performed By: #### L 500.2500, L100.0100 ####[facility] [address] [place], [address] CL Normal 98-108 [facility] Comment on above: Result Comment: Canc elled via OM: Order cancelled - Patient discharged Performed By: #### L 500.2500, L100.0100 ####[facility] [address] [place], [address] CO2 Normal 21.0-32.0 [facility] Comment on above: Result Comment: Canc elled via OM: Order cancelled - Patient discharged Performed By: #### L 500.2500, L100.0100 ####[facility] [address] [place], [address] CREAT,SERUM Normal 0.70-1.20 [facility] Comment on above: Result Comment: Canc elled via OM: Order cancelled - Patient discharged Performed By: #### L 500.2500, L100.0100 ####[facility] [address] [place], [address] eGFR Normal >60 [facility] Comment on above: Result Comment: Canc elled via OM: Order cancelled - Patient discharged Performed By: #### L 500.2500, L100.0100 ####[facility] [address] [place], [address] GAP Normal 5-15 [facility] Comment on above: Result Comment: Canc elled via OM: Order cancelled - Patient discharged Performed By: #### L 500.2500, L100.0100 ####[facility] [address] [place], [address] GLU Normal 70-99 [facility] Comment on above: Result Comment: Canc elled via OM: Order cancelled - Patient discharged Performed By: #### L 500.2500, L100.0100 ####[facility] [address] [place], [address] Potassium Normal 3.3-5.1 [facility] Comment on above: Result Comment: Canc elled via OM: Order cancelled - Patient discharged Performed By: #### L 500.2500, L100.0100 ####[facility] [address] [place], [address] Basic Metabolic Profile (BMP) Normal 133-145 [facility] Comment on above: Result Comment: Canc elled via OM: Order cancelled - Patient discharged Performed By: #### L 500.2500, L100.0100 ####[facility] [address] [place], [address] Basophil percentageOrdered B y: Juli German on 12-07-2024 Basophils/100 WBC (Bld) 0.3 % 0-1 [facility] Basophil percentageOrdered B y: Boyd Rock on 12-07-2024 Basophils/100 WBC (Bld) 0.2 % 0-1 [facility] Bedside Glucoseon 12-07-2024 FINGERSTICK GLU 187 mg/dL High 74-106 [facility] Comment on above: Result Comment: WILDA BARROSO OF PATIENT CARE PER NURSING PROTOCOL Performed By: #### L 501.080 ####[facility] [address] [place], [address] Bilirubin, totalOrdered By: Boyd Rock on 12-07-2024 Bilirubin [Mass/Vol] 1.48 mg/dL High 0.00-1.30 [facility] CBC W/Diff, Automatedon Absolute Lymph 0.94 X10 3/uL Normal 0.83-4.51 [facility] Comment on above: Performed By: #### L 501.4021, L100.0100, L500.2500 ####[facility] [address] [place], [address] Absolute Neut 9.4 X10 3/uL High 2.0-7.7 [facility] Comment on above: Performed By: #### L 501.4021, L100.0100, L500.2500 ####[facility] [address] [place], [address] Basophils/100 WBC (Bld) 0.3 % Normal 0-1 [facility] Comment on above: Performed By: #### L 501.4021, L100.0100, L500.2500 ####[facility] [address] [place], [address] Eosinophils/100 WBC (Bld) 0.6 % Normal 0-5 [facility] Comment on above: Performed By: #### L 501.4021, L100.0100, L500.2500 ####[facility] [address] [place], [address] Erythrocyte distribution width (RBC) [Ratio] 13.4 % Normal 11.6-14.6 [facility] Comment on above: Performed By: #### L 501.4021, L100.0100, L500.2500 ####[facility] [address] [place], [address] Hematocrit (Bld) [Volume fraction] 39.1 % Low 40-54 [facility] Comment on above: Performed By: #### L 501.4021, L100.0100, L500.2500 ####[facility] [address] [place], [address] Hemoglobin (Bld) [Mass/Vol] 13.3 g/dL Normal 13.0-16.5 [facility] Comment on above: Performed By: #### L 501.4021, L100.0100, L500.2500 ####[facility] [address] [place], [address] IG% 0.700 Normal 0.0-0.9 [facility] Comment on above: Result Comment: IG% - Immature Granulocytes (promyelocytes, myelocytes andmetamyelocytes) > 1% indicates that a LEFT SHIFT is Present. Performed By: #### L 501.4021, L100.0100, L500.2500 ####[facility] [address] [place], [address] Lymphocytes/100 WBC (Bld) 7.9 % Low 19-41 [facility] Comment on above: Performed By: #### L 501.4021, L100.0100, L500.2500 ####[facility] [address] [place], [address] MCH (RBC) [Entitic mass] 29.3 pg Normal 27.0-32.0 [facility] Comment on above: Performed By: #### L 501.4021, L100.0100, L500.2500 ####[facility] [address] [place], [address] MCHC (RBC) [Mass/Vol] 34.0 g/dL Normal 32-36 [facility] Comment on above: Performed By: #### L 501.4021, L100.0100, L500.2500 ####[facility] [address] [place], [address] MCV (RBC) [Entitic vol] 86.1 fL Normal 80-94 [facility] Comment on above: Performed By: #### L 501.4021, L100.0100, L500.2500 ####[facility] [address] [place], [address] Monocytes/100 WBC (Bld) 11.5 % High 0-10 [facility] Comment on above: Performed By: #### L 501.4021, L100.0100, L500.2500 ####[facility] [address] [place], [address] Neutrophils/100 WBC (Bld) 79.0 % High 47-70 [facility] Comment on above: Performed By: #### L 501.4021, L100.0100, L500.2500 ####[facility] [address] [place], [address] Nucleated RBC (Bld) [#/Vol] 0 10*3/uL Normal 0-5 [facility] Comment on above: Performed By: #### L 501.4021, L100.0100, L500.2500 ####[facility] [address] [place], [address] Platelet mean volume (Bld) [Entitic vol] 13.0 fL High 6.2-12.0 [facility] Comment on above: Performed By: #### L 501.4021, L100.0100, L500.2500 ####[facility] [address] [place], [address] Platelets (Bld) [#/Vol] 190 10*3/uL Normal 150-450 [facility] Comment on above: Performed By: #### L 501.4021, L100.0100, L500.2500 ####[facility] [address] [place], [address] RBC (Bld) [#/Vol] 4.54 10*6/uL Low 4.6-6.2 [facility] Comment on above: Performed By: #### L 501.4021, L100.0100, L500.2500 ####[facility] [address] [place], [address] RDW SD 41.4 fl Normal 35.1-43.9 [facility] Comment on above: Performed By: #### L 501.4021, L100.0100, L500.2500 ####[facility] [address] [place], [address] WBC (Bld) [#/Vol] 11.9 10*3/uL High 4.4-11.0 [facility] Comment on above: Performed By: #### L 501.4021, L100.0100, L500.2500 ####[facility] [address] [place], [address] Absolute Neut Normal 2.0-7.7 [facility] Comment on above: Result Comment: Canc elled via OM: Order cancelled - Patient discharged Performed By: #### L 500.2500, L100.0100 ####[facility] [address] [place], [address] HCT Normal 40-54 [facility] Comment on above: Result Comment: Canc elled via OM: Order cancelled - Patient discharged Performed By: #### L 500.2500, L100.0100 ####[facility] [address] [place], [address] HGB Normal 13.0-16.5 [facility] Comment on above: Result Comment: Canc elled via OM: Order cancelled - Patient discharged Performed By: #### L 500.2500, L100.0100 ####[facility] [address] [place], [address] MCH Normal 27.0-32.0 [facility] Comment on above: Result Comment: Canc elled via OM: Order cancelled - Patient discharged Performed By: #### L 500.2500, L100.0100 ####[facility] [address] [place], [address] MCHC Normal 32-36 [facility] Comment on above: Result Comment: Canc elled via OM: Order cancelled - Patient discharged Performed By: #### L 500.2500, L100.0100 ####[facility] [address] [place], [address] MCV Normal 80-94 [facility] Comment on above: Result Comment: Canc elled via OM: Order cancelled - Patient discharged Performed By: #### L 500.2500, L100.0100 ####[facility] [address] [place], [address] NEUT% Normal 47-70 [facility] Comment on above: Result Comment: Canc elled via OM: Order cancelled - Patient discharged Performed By: #### L 500.2500, L100.0100 ####[facility] [address] [place], [address] PLT Normal 150-450 [facility] Comment on above: Result Comment: Canc elled via OM: Order cancelled - Patient discharged Performed By: #### L 500.2500, L100.0100 ####[facility] [address] [place], [address] RBC Normal 4.6-6.2 [facility] Comment on above: Result Comment: Canc elled via OM: Order cancelled - Patient discharged Performed By: #### L 500.2500, L100.0100 ####[facility] [address] [place], [address] RDW CV Normal 11.6-14.6 [facility] Comment on above: Result Comment: Canc elled via OM: Order cancelled - Patient discharged Performed By: #### L 500.2500, L100.0100 ####[facility] [address] [place], [address] RDW SD Normal 35.1-43.9 [facility] Comment on above: Result Comment: Canc elled via OM: Order cancelled - Patient discharged Performed By: #### L 500.2500, L100.0100 ####[facility] [address] [place], [address] WBC Normal 4.4-11.0 [facility] Comment on above: Result Comment: Canc elled via OM: Order cancelled - Patient discharged Performed By: #### L 500.2500, L100.0100 ####[facility] [address] [place], [address] Calculated very low density lipoprotein (VLDL) cholesterol measurementOrdered By: Boyd Rock on 12-07-2024 Calculated very low density lipoprotein (VLDL) cholesterol measurement 54 mg/dL High 5-40 [facility] Carbon dioxide, total [Moles /volume] in Central venous bloodOrdered By: Juli German on 12-07-2024 CO2 [Moles/Vol] 20.9 mmol/L Low 21.0-32.0 [facility] Carbon dioxide, total [Moles /volume] in Central venous bloodOrdered By: Boyd Rock on 12-07-2024 CO2 [Moles/Vol] 23.3 mmol/L 21.0-32.0 [facility] Chest PA and Lateralon 12-07 Chest PA and Lateral Normal [facility] Chloride assayOrdered By: Miri German on 12-07-2024 Chloride [Moles/Vol] 94 mmol/L Low 98-108 [facility] Chloride assayOrdered By: Susanna Rock on 12-07-2024 Chloride [Moles/Vol] 96 mmol/L Low 98-108 [facility] D-Dimer Quantitative (DVT/PE )on 12-07-2024 D-DIMER QUANT 1.61 FEU/ug/m Invalid Interpretation Code 0.27-0.49 [facility] Comment on above: Result Comment: D-Di ajit ELEVATED (>0.49): Additional studies and clinicalassessments are indicated to conclude diagnosis of:Deep Vein Thrombosis (DVT) or Pulmonary Embolism (PE)CRITICAL VALUE CALLED TO MARIA DEL ROSARIO JOHNSON (ER)12/07/24 1442 Michael Cherry.RESULTS READ BACK BY SAME. Performed By: #### L 300.8000 ####[facility] [address] [place], [place], [id number] Emergency Department Summary on 12-07-2024 Emergency Department Summary Normal [facility] Eosinophil percentageOrdered By: Juli German on 12-07-2024 Eosinophils/100 WBC (Bld) 0.6 % 0-5 [facility] Eosinophil percentageOrdered By: Boyd Rock on 12-07-2024 Eosinophils/100 WBC (Bld) 1.3 % 0-5 [facility] Erythrocyte distribution wid th ratioOrdered By: Juli German on 12-07-2024 Erythrocyte distribution width (RBC) [Ratio] 13.4 % 11.6-14.6 [facility] Erythrocyte distribution wid th ratioOrdered By: Boyd Rock on 12-07-2024 Erythrocyte distribution width (RBC) [Ratio] 13.6 % 11.6-14.6 [facility] Erythrocyte distribution wid th standard deviationOrdered By: Juli German on 12-07-2024 Erythrocyte distribution width (RBC) [Ratio] 41.4 fl 35.1-43.9 [facility] Erythrocyte distribution wid th standard deviationOrdered By: Boyd Rock on 12-07-2024 Erythrocyte distribution width (RBC) [Ratio] 43.8 fl 35.1-43.9 [facility] Glomerular filtration rate ( GFR) estimation/1.73 sq m using serum, plasma, or whole bOrdered By: Juli German on 12-07-2024 GFR/1.73 sq M.predicted among non-blacks MDRD (S/P/Bld) [Vol rate/Area] 23 mL/min/{1.73_m2} Low >60 [facility] Glomerular filtration rate ( GFR) estimation/1.73 sq m using serum, plasma, or whole bOrdered By: Boyd Rock on 12-07-2024 GFR/1.73 sq M.predicted among non-blacks MDRD (S/P/Bld) [Vol rate/Area] 25 mL/min/{1.73_m2} Low >60 [facility] H AND P Exam - Hospitaliston 12-07-2024 H&P Exam - Hospitalist Normal [facility] Hematocrit Auto (Bld) [Volum e fraction]Ordered By: Juli German on 12-07-2024 Hematocrit (Bld) [Volume fraction] 39.1 % Low 40-54 [facility] Hematocrit Auto (Bld) [Volum e fraction]Ordered By: Boyd Rock on 12-07-2024 Hematocrit (Bld) [Volume fraction] 37.8 % Low 40-54 [facility] Hemoglobin measurementOrdere d By: Juli German on 12-07-2024 Hemoglobin (Bld) [Mass/Vol] 13.3 g/dL 13.0-16.5 [facility] Hemoglobin measurementOrdere d By: Boyd Rock on 12-07-2024 Hemoglobin (Bld) [Mass/Vol] 12.4 g/dL Low 13.0-16.5 [facility] Immature granulocytes/100 WB C Auto (Bld)Ordered By: Juli German on 12-07-2024 Immature granulocytes/100 WBC (Bld) 0.700 % 0.0-0.9 [facility] Immature granulocytes/100 WB C Auto (Bld)Ordered By: Boyd Rock on 12-07-2024 Immature granulocytes/100 WBC (Bld) 0.600 % 0.0-0.9 [facility] L501.4021on 12-07-2024 Trop T High Sen 7122 ng/L Invalid Interpretation Code <=22 [facility] Comment on above: Result Comment: Crit ical Result(s) Called at 1153: by:?? MONICA RODRIGUEZ. Results read back by same. Performed By: #### L 501.4021, L100.0100, L500.2500 ####[facility] [address] [place], [place], [id number] LDL calc ser/plasOrdered By: Boyd Rock on 12-07-2024 Cholesterol in LDL [Mass/Vol] 65 mg/dL [facility] Lung Scan Vent/Perfon 2024 Lung Scan Vent/Perf Normal [facility] MCV (mean corpuscular volume ) determinationOrdered By: Juli German on 12-07-2024 MCV (RBC) [Entitic vol] 86.1 fL 80-94 [facility] MCV (mean corpuscular volume ) determinationOrdered By: Boyd Rock on 12-07-2024 MCV (RBC) [Entitic vol] 87.9 fL 80-94 [facility] Magnesiumon 12-07-2024 Magnesium [Mass/Vol] 2.4 mg/dL High 1.5-2.2 [facility] Comment on above: Performed By: #### L 501.5200 ####[facility] [address] [place], [place], [address] Magnesium measurement (mass/ volume)Ordered By: Juli German on 12-07-2024 Magnesium (Unsp spec) [Mass/Vol] 2.4 mg/dL High 1.5-2.2 [facility] Mean corpuscular hemoglobin (MCH) determinationOrdered By: Juli German on 12-07-2024 MCH (RBC) [Entitic mass] 29.3 pg 27.0-32.0 [facility] Mean corpuscular hemoglobin (MCH) determinationOrdered By: Boyd Rock on 12-07-2024 MCH (RBC) [Entitic mass] 28.8 pg 27.0-32.0 [facility] Monocyte percentageOrdered B y: Juli German on 12-07-2024 Monocytes/100 WBC (Bld) 11.5 % High 0-10 [facility] Monocyte percentageOrdered B y: Boyd Rock on 12-07-2024 Monocytes/100 WBC (Bld) 11.7 % High 0-10 [facility] Natriuretic peptide.B prohor efrem N-Terminal [Mass/volume] in Serum or PlasmaOrdered By: Tor Irizarry on 12-07-2024 Natriuretic peptide.B prohormone N-Terminal [Mass/Vol] 2037 pg/mL High <1800 [facility] Neutrophil percentageOrdered By: Juli German on 12-07-2024 Neutrophils/100 WBC (Bld) 79.0 % High 47-70 [facility] Neutrophil percentageOrdered By: Boyd Rock on 12-07-2024 Neutrophils/100 WBC (Bld) 74.8 % High 47-70 [facility] No Panel InformationOrdered By: Boyd Rock on 12-07-2024 32 U/L <38 [facility] Platelet countOrdered By: Miri German on 12-07-2024 Platelets (Bld) [#/Vol] 190 10*3/uL 150-450 [facility] Platelet countOrdered By: Susanna garrytesha Rock on 12-07-2024 Platelets (Bld) [#/Vol] 169 10*3/uL 150-450 [facility] Potassium measurement (mass/ volume)Ordered By: Juli German on 12-07-2024 Potassium (Unsp spec) [Mass/Vol] 4.1 mmol/L 3.3-5.1 [facility] Potassium measurement (mass/ volume)Ordered By: Boyd Rock on 12-07-2024 Potassium (Unsp spec) [Mass/Vol] 3.5 mmol/L 3.3-5.1 [facility] Pro- Brain NATRIURETIC PEPTI Sharon 12-07-2024 Natriuretic peptide B (Bld) [Mass/Vol] 2037 pg/mL High <=1800 [facility] Comment on above: Result Comment: Hear t Failure Unlikely: < 300 pg/mLHeart Failure Likely< 50 Years: > 450 pg/mL50-75 Years: > 900 pg/mL>75 Years: > 1800 pg/mL Performed By: #### L 503.1673 ####[facility] [address] [place], [address] RBC Auto (Bld) [#/Vol]Ordere d By: Juli German on 12-07-2024 RBC (Bld) [#/Vol] 4.54 10*6/uL Low 4.6-6.2 [facility] RBC Auto (Bld) [#/Vol]Ordere d By: Boyd Rock on 12-07-2024 RBC (Bld) [#/Vol] 4.30 10*6/uL Low 4.6-6.2 [facility] Serum creatinine measurement (mass/volume)Ordered By: Juli German on 12-07-2024 Creatinine [Mass/Vol] 2.76 mg/dL High 0.70-1.20 [facility] Serum creatinine measurement (mass/volume)Ordered By: Boyd Rock on 12-07-2024 Creatinine [Mass/Vol] 2.56 mg/dL High 0.70-1.20 [facility] Serum globulin measurementOr dered By: Boyd Rock on 12-07-2024 Globulin (S) [Mass/Vol] 3.5 g/dL 2.2-4.2 [facility] Serum glucose measurement (m ass/volume)Ordered By: Juli German on 12-07-2024 Glucose [Mass/Vol] 209 mg/dL High 70-99 [facility] Serum glucose measurement (m ass/volume)Ordered By: Boyd Rock on 12-07-2024 Glucose [Mass/Vol] 156 mg/dL High 70-99 [facility] Serum or plasma alanine guerrero otransferase (ALT) measurementOrdered By: Boyd Rock on 12-07-2024 ALT [Catalytic activity/Vol] 28 U/L <47 [facility] Serum or plasma albumin francine urement (mass/volume)Ordered By: Boyd Rock on 12-07-2024 Albumin [Mass/Vol] 4.1 g/dL 3.4-4.8 [facility] Serum or plasma albumin/glob ulin mass ratioOrdered By: Boyd Rock on 12-07-2024 Albumin/Globulin [Mass ratio] 1.2 {ratio} 0.9-2.4 [facility] Serum or plasma alkaline bell sphatase measurementOrdered By: Boyd Rock on 12-07-2024 ALP [Catalytic activity/Vol] 122 U/L 40-129 [facility] Serum or plasma calcium francine urement (mass/volume)Ordered By: Juli German on 12-07-2024 Calcium [Mass/Vol] 9.5 mg/dL 7.6-11.0 [facility] Serum or plasma calcium francine urement (mass/volume)Ordered By: Boyd Rock on 12-07-2024 Calcium [Mass/Vol] 9.4 mg/dL 7.6-11.0 [facility] Serum or plasma cholesterol in HDL measurement (mass/volume)Ordered By: Boyd Rock on 12-07-2024 Cholesterol in HDL [Mass/Vol] 36 mg/dL Low >40 [facility] Serum or plasma cholesterol measurement (mass/volume)Ordered By: Boyd Rock on 12-07-2024 Cholesterol [Mass/Vol] 154 mg/dL <201 [facility] Serum or plasma urea nitroge n measurement (mass/volume)Ordered By: Juli German on 12-07-2024 Urea nitrogen [Mass/Vol] 40 mg/dL High 4-19 [facility] Serum or plasma urea nitroge n measurement (mass/volume)Ordered By: Boyd Rock on 12-07-2024 Urea nitrogen [Mass/Vol] 39 mg/dL High 4-19 [facility] Sodium levelOrdered By: Juli German on 12-07-2024 Sodium [Moles/Vol] 132 mmol/L Low 133-145 [facility] Sodium levelOrdered By: Lupe Rock on 12-07-2024 Sodium [Moles/Vol] 135 mmol/L 133-145 [facility] TSH DL <= 0.005 mIU/L QnOrde red By: Boyd Rock on 12-07-2024 TSH Qn 9.200 uIU/mL High 0.300-4.20 0 [facility] Total proteinOrdered By: Anastacio nicole Shweta on 12-07-2024 Protein [Mass/Vol] 7.5 g/dL 5.9-8.4 [facility] Troponin T HS 2 HRon 025 Trop T High Sen 6442 ng/L Invalid Interpretation Code <=22 [facility] Comment on above: Result Comment: Crit ical Result(s) Called at 1336: by: MONICA PERALTA.??Results read back by same. Performed By: #### L 499.0042 ####[facility] [address] [place], [place], [id number] Troponin T HS 4 HRon 025 Trop T High Sen 6556 ng/L Invalid Interpretation Code <=22 [facility] Comment on above: Result Comment: Crit ical Result(s) Called at: 1740 by:??MOISE BECKFORD Results read back by same. Performed By: #### L 499.0043 ####[facility] [address] [place], [place], [address] Troponin T.cardiac [Mass/vol ume] in Serum or Plasma by High sensitivity methodOrdered By: Juli German on 12-07-2024 Troponin T.cardiac High sensitivity method [Mass/Vol] 6556 ng/L High <22 [facility] Troponin T.cardiac High sensitivity method [Mass/Vol] 6442 ng/L High <22 [facility] Troponin T.cardiac High sensitivity method [Mass/Vol] 7122 ng/L High <22 [facility] White blood cell (WBC) count Ordered By: Juli German on 12-07-2024 WBC (Bld) [#/Vol] 11.9 10*3/uL High 4.4-11.0 [facility] White blood cell (WBC) count Ordered By: Boyd Rock on 12-07-2024 WBC (Bld) [#/Vol] 10.5 10*3/uL 4.4-11.0 [facility] 12 Lead EKGon 12-06-2024 12 Lead EKG Normal [facility] Absolute lymphocyte countOrd ered By: Alex Sanon on 12-06-2024 Lymphocytes Auto (Unsp spec) [#/Vol] 1.09 10*3/uL 0.83-4.51 [facility] Anion gap in Serum or Plasma Ordered By: Marcin Araujo on 12-06-2024 Anion gap [Moles/Vol] 17 mmol/L High 5-15 [facility] Automated lymphocyte count a s percentage of total leukocytesOrdered By: Alex Sanon on 12-06-2024 Lymphocytes/100 WBC Auto (Unsp spec) 11.6 % Low 19-41 [facility] BUN/creatinine ratioOrdered By: Marcin Araujo on 12-06-2024 Urea nitrogen/Creatinine [Mass ratio] 16.1 mg/mg 10-20 [facility] Basic Metabolic Profile (BMP )on 12-06-2024 BUN/CRE 16.1 RATIO Normal - [facility] Comment on above: Performed By: #### L 500.2500 ####[facility] [address] [place], [address] Calcium [Mass/Vol] 9.2 mg/dL Normal 7.6-11.0 [facility] Comment on above: Performed By: #### L 500.2500 ####[facility] [address] [place], [address] Chloride [Moles/Vol] 96 mmol/L Low 98-108 [facility] Comment on above: Performed By: #### L 500.2500 ####[facility] [address] [place], [address] CO2 [Moles/Vol] 20.6 mmol/L Low 21.0-32.0 [facility] Comment on above: Performed By: #### L 500.2500 ####[facility] [address] [place], [address] Creatinine [Mass/Vol] 2.46 mg/dL High 0.70-1.20 [facility] Comment on above: Performed By: #### L 500.2500 ####[facility] [address] [place], [address] ECRCL 28.56 ml/min Low 50-250 [facility] Comment on above: Performed By: #### L 500.2500 ####[facility] [address] [place], [address] GAP 17 High 5-15 [facility] Comment on above: Performed By: #### L 500.2500 ####[facility] [address] [place], [address] GFR/1.73 sq M.predicted among non-blacks MDRD (S/P/Bld) [Vol rate/Area] 26 mL/min/{1.73_m2} Low >60 [facility] Comment on above: Result Comment: mL/m in/1.73m2 CKD-EPI Creatinine Equation (2020) Performed By: #### L 500.2500 ####[facility] [address] [place], [address] Glucose [Mass/Vol] 186 mg/dL High 70-99 [facility] Comment on above: Performed By: #### L 500.2500 ####[facility] [address] [place], [address] Potassium [Moles/Vol] 4.1 mmol/L Normal 3.3-5.1 [facility] Comment on above: Performed By: #### L 500.2500 ####[facility] [address] [place], [address] Sodium [Moles/Vol] 133 mmol/L Normal 133-145 [facility] Comment on above: Performed By: #### L 500.2500 ####[facility] [address] [place], [address] Urea nitrogen [Mass/Vol] 40 mg/dL High 4-19 [facility] Comment on above: Performed By: #### L 500.2500 ####[facility] [address] [place], [address] BUN/CRE 17.0 RATIO Normal 10-20 [facility] Comment on above: Performed By: #### L 500.2500, L100.0100, L501.2300, L501.5200 ####[facility] [address] [place], [address] Calcium [Mass/Vol] 9.0 mg/dL Normal 7.6-11.0 [facility] Comment on above: Performed By: #### L 500.2500, L100.0100, L501.2300, L501.5200 ####[facility] [address] [place], [address] Chloride [Moles/Vol] 97 mmol/L Low 98-108 [facility] Comment on above: Performed By: #### L 500.2500, L100.0100, L501.2300, L501.5200 ####[facility] [address] [place], [address] CO2 [Moles/Vol] 21.9 mmol/L Normal 21.0-32.0 [facility] Comment on above: Performed By: #### L 500.2500, L100.0100, L501.2300, L501.5200 ####[facility] [address] [place], [address] Creatinine [Mass/Vol] 2.53 mg/dL High 0.70-1.20 [facility] Comment on above: Performed By: #### L 500.2500, L100.0100, L501.2300, L501.5200 ####[facility] [address] [place], [address] ECRCL 1.34 ml/min Invalid Interpretation Code 50-250 [facility] Comment on above: Performed By: #### L 500.2500, L100.0100, L501.2300, L501.5200 ####[facility] [address] [place], [address] GAP 17 High 5-15 [facility] Comment on above: Performed By: #### L 500.2500, L100.0100, L501.2300, L501.5200 ####[facility] [address] [place], [address] GFR/1.73 sq M.predicted among non-blacks MDRD (S/P/Bld) [Vol rate/Area] 25 mL/min/{1.73_m2} Low >60 [facility] Comment on above: Result Comment: mL/m in/1.73m2 CKD-EPI Creatinine Equation (2020) Performed By: #### L 500.2500, L100.0100, L501.2300, L501.5200 ####[facility] [address] [place], [address] Glucose [Mass/Vol] 161 mg/dL High 70-99 [facility] Comment on above: Performed By: #### L 500.2500, L100.0100, L501.2300, L501.5200 ####[facility] [address] [place], [address] Potassium [Moles/Vol] 3.5 mmol/L Normal 3.3-5.1 [facility] Comment on above: Performed By: #### L 500.2500, L100.0100, L501.2300, L501.5200 ####[facility] [address] [place], [address] Sodium [Moles/Vol] 135 mmol/L Normal 133-145 [facility] Comment on above: Performed By: #### L 500.2500, L100.0100, L501.2300, L501.5200 ####[facility] [address] [place], [address] Urea nitrogen [Mass/Vol] 43 mg/dL High 4-19 [facility] Comment on above: Performed By: #### L 500.2500, L100.0100, L501.2300, L501.5200 ####[facility] [address] [place], [address] Basophil percentageOrdered B y: Alex Sanon on 12-06-2024 Basophils/100 WBC (Bld) 0.2 % 0-1 [facility] Bedside Glucoseon 12-06-2024 FINGERSTICK GLU 197 mg/dL High 74-106 [facility] Comment on above: Result Comment: WILDA GEMENT OF PATIENT CARE PER NURSING PROTOCOL Performed By: #### L 501.080 ####[facility] [address] [place], [address] FINGERSTICK GLU 165 mg/dL High 74-106 [facility] Comment on above: Result Comment: WILDA GEMENT OF PATIENT CARE PER NURSING PROTOCOL Performed By: #### L 501.080 ####[facility] [address] [place], [address] CBC W/Diff, Automatedon - Absolute Lymph 1.09 X10 3/uL Normal 0.83-4.51 [facility] Comment on above: Performed By: #### L 500.2500, L100.0100, L501.2300, L501.5200 ####[facility] [address] [place], [address] Absolute Neut 6.8 X10 3/uL Normal 2.0-7.7 [facility] Comment on above: Performed By: #### L 500.2500, L100.0100, L501.2300, L501.5200 ####[facility] [address] [place], [address] Basophils/100 WBC (Bld) 0.2 % Normal 0-1 [facility] Comment on above: Performed By: #### L 500.2500, L100.0100, L501.2300, L501.5200 ####[facility] [address] [place], [address] Eosinophils/100 WBC (Bld) 2.0 % Normal 0-5 [facility] Comment on above: Performed By: #### L 500.2500, L100.0100, L501.2300, L501.5200 ####[facility] [address] [place], [address] Erythrocyte distribution width (RBC) [Ratio] 13.6 % Normal 11.6-14.6 [facility] Comment on above: Performed By: #### L 500.2500, L100.0100, L501.2300, L501.5200 ####[facility] [address] [place], [address] Hematocrit (Bld) [Volume fraction] 35.0 % Low 40-54 [facility] Comment on above: Performed By: #### L 500.2500, L100.0100, L501.2300, L501.5200 ####[facility] [address] [place], [address] Hemoglobin (Bld) [Mass/Vol] 11.6 g/dL Low 13.0-16.5 [facility] Comment on above: Performed By: #### L 500.2500, L100.0100, L501.2300, L501.5200 ####[facility] [address] [place], [address] IG% 0.600 Normal 0.0-0.9 [facility] Comment on above: Result Comment: IG% - Immature Granulocytes (promyelocytes, myelocytes andmetamyelocytes) > 1% indicates that a LEFT SHIFT is Present. Performed By: #### L 500.2500, L100.0100, L501.2300, L501.5200 ####[facility] [address] [place], [address] Lymphocytes/100 WBC (Bld) 11.6 % Low 19-41 [facility] Comment on above: Performed By: #### L 500.2500, L100.0100, L501.2300, L501.5200 ####[facility] [address] [place], [address] MCH (RBC) [Entitic mass] 29.1 pg Normal 27.0-32.0 [facility] Comment on above: Performed By: #### L 500.2500, L100.0100, L501.2300, L501.5200 ####[facility] [address] [place], [address] MCHC (RBC) [Mass/Vol] 33.1 g/dL Normal 32-36 [facility] Comment on above: Performed By: #### L 500.2500, L100.0100, L501.2300, L501.5200 ####[facility] [address] [place], [address] MCV (RBC) [Entitic vol] 87.9 fL Normal 80-94 [facility] Comment on above: Performed By: #### L 500.2500, L100.0100, L501.2300, L501.5200 ####[facility] [address] [place], [address] Monocytes/100 WBC (Bld) 12.9 % High 0-10 [facility] Comment on above: Performed By: #### L 500.2500, L100.0100, L501.2300, L501.5200 ####[facility] [address] [place], [address] Neutrophils/100 WBC (Bld) 72.7 % High 47-70 [facility] Comment on above: Performed By: #### L 500.2500, L100.0100, L501.2300, L501.5200 ####[facility] [address] [place], [address] Nucleated RBC (Bld) [#/Vol] 0 10*3/uL Normal 0-5 [facility] Comment on above: Performed By: #### L 500.2500, L100.0100, L501.2300, L501.5200 ####[facility] [address] [place], [address] Platelet mean volume (Bld) [Entitic vol] 12.9 fL High 6.2-12.0 [facility] Comment on above: Performed By: #### L 500.2500, L100.0100, L501.2300, L501.5200 ####[facility] [address] [place], [address] Platelets (Bld) [#/Vol] 140 10*3/uL Low 150-450 [facility] Comment on above: Performed By: #### L 500.2500, L100.0100, L501.2300, L501.5200 ####[facility] [address] [place], [address] RBC (Bld) [#/Vol] 3.98 10*6/uL Low 4.6-6.2 [facility] Comment on above: Performed By: #### L 500.2500, L100.0100, L501.2300, L501.5200 ####[facility] [address] [place], [address] RDW SD 44.0 fl High 35.1-43.9 [facility] Comment on above: Performed By: #### L 500.2500, L100.0100, L501.2300, L501.5200 ####[facility] [address] [place], [address] WBC (Bld) [#/Vol] 9.4 10*3/uL Normal 4.4-11.0 [facility] Comment on above: Performed By: #### L 500.2500, L100.0100, L501.2300, L501.5200 ####[facility] [address] [place], [address] Carbon dioxide, total [Moles /volume] in Central venous bloodOrdered By: Marcin Araujo on 12-06-2024 CO2 [Moles/Vol] 20.6 mmol/L Low 21.0-32.0 [facility] Chloride assayOrdered By: Russell Araujo on 12-06-2024 Chloride [Moles/Vol] 96 mmol/L Low 98-108 [facility] Electrocardiogram reportOrde red By: Marcin Araujo on 12-06-2024 EKG study [facility] Work Phone: [phone] EKG study [facility] Work Phone: [phone] Eosinophil percentageOrdered By: Alex Sanon on 12-06-2024 Eosinophils/100 WBC (Bld) 2.0 % 0-5 [facility] Erythrocyte distribution wid th ratioOrdered By: Alex Sanon on 12-06-2024 Erythrocyte distribution width (RBC) [Ratio] 13.6 % 11.6-14.6 [facility] Erythrocyte distribution wid th standard deviationOrdered By: Alex Sanon on 12-06-2024 Erythrocyte distribution width (RBC) [Ratio] 44.0 fl High 35.1-43.9 [facility] Glomerular filtration rate ( GFR) estimation/1.73 sq m using serum, plasma, or whole bOrdered By: Marcin Araujo on 12-06-2024 GFR/1.73 sq M.predicted among non-blacks MDRD (S/P/Bld) [Vol rate/Area] 26 mL/min/{1.73_m2} Low >60 [facility] Glucose measurement at bedsi deOrdered By: Alex Sanon on 12-06-2024 Glucose [Mass/Vol] 197 mg/dL High 74-106 [facility] Hematocrit Auto (Bld) [Volum e fraction]Ordered By: Alex Sanon on 12-06-2024 Hematocrit (Bld) [Volume fraction] 35.0 % Low 40-54 [facility] Hemoglobin measurementOrdere d By: Alex Sanon on 12-06-2024 Hemoglobin (Bld) [Mass/Vol] 11.6 g/dL Low 13.0-16.5 [facility] Immature granulocytes/100 WB C Auto (Bld)Ordered By: Alex Sanon on 12-06-2024 Immature granulocytes/100 WBC (Bld) 0.600 % 0.0-0.9 [facility] MCV (mean corpuscular volume ) determinationOrdered By: Alex Sanon on 12-06-2024 MCV (RBC) [Entitic vol] 87.9 fL 80-94 [facility] Magnesiumon 12-06-2024 Magnesium [Mass/Vol] 2.4 mg/dL High 1.5-2.2 [facility] Comment on above: Performed By: #### L 500.2500, L100.0100, L501.2300, L501.5200 ####[facility] [address] [place], [address] Magnesium measurement (mass/ volume)Ordered By: Alex Sanon on 12-06-2024 Magnesium (Unsp spec) [Mass/Vol] 2.4 mg/dL High 1.5-2.2 [facility] Mean corpuscular hemoglobin (MCH) determinationOrdered By: Alex Sanon on 12-06-2024 MCH (RBC) [Entitic mass] 29.1 pg 27.0-32.0 [facility] Monocyte percentageOrdered B y: Alex Sanon on 12-06-2024 Monocytes/100 WBC (Bld) 12.9 % High 0-10 [facility] Neutrophil percentageOrdered By: Alex Sanon on 12-06-2024 Neutrophils/100 WBC (Bld) 72.7 % High 47-70 [facility] Phosphoruson 12-06-2024 Phosphate [Mass/Vol] 2.9 mg/dL Normal 2.7-4.5 [facility] Comment on above: Performed By: #### L 500.2500, L100.0100, L501.2300, L501.5200 ####[facility] [address] [place], [address] Platelet countOrdered By: Danis Sanon on 12-06-2024 Platelets (Bld) [#/Vol] 140 10*3/uL Low 150-450 [facility] Potassium measurement (mass/ volume)Ordered By: Marcin Araujo on 12-06-2024 Potassium (Unsp spec) [Mass/Vol] 4.1 mmol/L 3.3-5.1 [facility] RBC Auto (Bld) [#/Vol]Ordere d By: Alex Sanon on 12-06-2024 RBC (Bld) [#/Vol] 3.98 10*6/uL Low 4.6-6.2 [facility] Serum creatinine measurement (mass/volume)Ordered By: Marcin Araujo on 12-06-2024 Creatinine [Mass/Vol] 2.46 mg/dL High 0.70-1.20 [facility] Serum glucose measurement (m ass/volume)Ordered By: Marcin Araujo on 12-06-2024 Glucose [Mass/Vol] 186 mg/dL High 70-99 [facility] Serum or plasma calcium francine urement (mass/volume)Ordered By: Marcin Araujo on 12-06-2024 Calcium [Mass/Vol] 9.2 mg/dL 7.6-11.0 [facility] Serum or plasma urea nitroge n measurement (mass/volume)Ordered By: Marcin Araujo on 12-06-2024 Urea nitrogen [Mass/Vol] 40 mg/dL High 4-19 [facility] Sodium levelOrdered By: Madeline Araujo on 12-06-2024 Sodium [Moles/Vol] 133 mmol/L 133-145 [facility] White blood cell (WBC) count Ordered By: Alex Sanon on 12-06-2024 WBC (Bld) [#/Vol] 9.4 10*3/uL 4.4-11.0 [facility] Anion gap in Serum or Plasma Ordered By: Abraham Ridley on 12-05-2024 Anion gap [Moles/Vol] 19 mmol/L High 5-15 [facility] BUN/creatinine ratioOrdered By: Abraham Ridley on 12-05-2024 Urea nitrogen/Creatinine [Mass ratio] 18.2 mg/mg - [facility] Basic Metabolic Profile (BMP )on 12-05-2024 BUN/CRE 18.2 RATIO Normal - [facility] Comment on above: Performed By: #### L 500.2500 ####[facility] [address] [place], [address] Calcium [Mass/Vol] 9.1 mg/dL Normal 7.6-11.0 [facility] Comment on above: Performed By: #### L 500.2500 ####[facility] [address] [place], [address] Chloride [Moles/Vol] 96 mmol/L Low 98-108 [facility] Comment on above: Performed By: #### L 500.2500 ####[facility] [address] [place], [address] CO2 [Moles/Vol] 22.4 mmol/L Normal 21.0-32.0 [facility] Comment on above: Performed By: #### L 500.2500 ####[facility] [address] [place], [address] Creatinine [Mass/Vol] 2.57 mg/dL High 0.70-1.20 [facility] Comment on above: Performed By: #### L 500.2500 ####[facility] [address] [place], [address] ECRCL 27.41 ml/min Low 50-250 [facility] Comment on above: Performed By: #### L 500.2500 ####[facility] [address] [place], [address] GAP 19 High -15 [facility] Comment on above: Performed By: #### L 500.2500 ####[facility] [address] [place], [address] GFR/1.73 sq M.predicted among non-blacks MDRD (S/P/Bld) [Vol rate/Area] 25 mL/min/{1.73_m2} Low >60 [facility] Comment on above: Result Comment: mL/m in/1.73m2 CKD-EPI Creatinine Equation (2020) Performed By: #### L 500.2500 ####[facility] [address] [place], [address] Glucose [Mass/Vol] 155 mg/dL High 70-99 [facility] Comment on above: Performed By: #### L 500.2500 ####[facility] [address] [place], [address] Potassium [Moles/Vol] 3.2 mmol/L Low 3.3-5.1 [facility] Comment on above: Performed By: #### L 500.2500 ####[facility] [address] [place], [address] Sodium [Moles/Vol] 137 mmol/L Normal 133-145 [facility] Comment on above: Performed By: #### L 500.2500 ####[facility] [address] [place], [address] Urea nitrogen [Mass/Vol] 47 mg/dL High 4-19 [facility] Comment on above: Performed By: #### L 500.2500 ####[facility] [address] [place], [address] Bedside Glucoseon 12-05-2024 FINGERSTICK GLU 196 mg/dL High 74-106 [facility] Comment on above: Result Comment: WILDA BARROSO OF PATIENT CARE PER NURSING PROTOCOL Performed By: #### L 501.080 ####[facility] [address] [place], [address] FINGERSTICK GLU 183 mg/dL High 74-106 [facility] Comment on above: Result Comment: WILDA GEMENT OF PATIENT CARE PER NURSING PROTOCOL Performed By: #### L 501.080 ####[facility] [address] [place], [address] FINGERSTICK GLU 194 mg/dL High 74-106 [facility] Comment on above: Result Comment: WILDA GEMENT OF PATIENT CARE PER NURSING PROTOCOL Performed By: #### L 501.080 ####[facility] [address] [place], [address] FINGERSTICK GLU 190 mg/dL High -106 [facility] Comment on above: Result Comment: WILDA GEMENT OF PATIENT CARE PER NURSING PROTOCOL Performed By: #### L 501.080 ####[facility] [address] [place], [address] Carbon dioxide, total [Moles /volume] in Central venous bloodOrdered By: Abraham Ridley on 12-05-2024 CO2 [Moles/Vol] 22.4 mmol/L 21.0-32.0 [facility] Chloride assayOrdered By: Jaylen Ridley on 12-05-2024 Chloride [Moles/Vol] 96 mmol/L Low 98-108 [facility] Glomerular filtration rate ( GFR) estimation/1.73 sq m using serum, plasma, or whole bOrdered By: Abraham Ridley on 12-05-2024 GFR/1.73 sq M.predicted among non-blacks MDRD (S/P/Bld) [Vol rate/Area] 25 mL/min/{1.73_m2} Low >60 [facility] Glucose measurement at [facility] deOrdered By: Abraham Ridley on 12-05-2024 Glucose [Mass/Vol] 190 mg/dL High 74-106 [facility] Potassium measurement (mass/ volume)Ordered By: Abraham Ridley on 12-05-2024 Potassium (Unsp spec) [Mass/Vol] 3.2 mmol/L Low 3.3-5.1 [facility] Serum creatinine measurement (mass/volume)Ordered By: Abraham Ridley on 12-05-2024 Creatinine [Mass/Vol] 2.57 mg/dL High 0.70-1.20 [facility] Serum glucose measurement (m ass/volume)Ordered By: Abraham Ridley on 12-05-2024 Glucose [Mass/Vol] 155 mg/dL High 70-99 [facility] Serum or plasma calcium francine urement (mass/volume)Ordered By: Abraham Ridley on 12-05-2024 Calcium [Mass/Vol] 9.1 mg/dL 7.6-11.0 [facility] Serum or plasma urea nitroge n measurement (mass/volume)Ordered By: Abraham Ridley on 12-05-2024 Urea nitrogen [Mass/Vol] 47 mg/dL High 4-19 [facility] Sodium levelOrdered By: Isael Ridley on 12-05-2024 Sodium [Moles/Vol] 137 mmol/L 133-145 [facility] 12 Lead EKGon 12-04-2024 12 Lead EKG Normal [facility] Absolute lymphocyte countOrd ered By: Ramonita Herron on 12-04-2024 Lymphocytes Auto (Unsp spec) [#/Vol] 1.07 10*3/uL 0.83-4.51 [facility] Automated lymphocyte count a s percentage of total leukocytesOrdered By: Ramonita Herron on 12-04-2024 Lymphocytes/100 WBC Auto (Unsp spec) 11.1 % Low 19-41 [facility] Basic Metabolic Profile (BMP )on 12-04-2024 BUN/CRE 19.4 RATIO Normal 10-20 [facility] Comment on above: Performed By: #### L 500.2500, L100.0100 ####[facility] [address] [place], [address] Calcium [Mass/Vol] 9.2 mg/dL Normal 7.6-11.0 [facility] Comment on above: Performed By: #### L 500.2500, L100.0100 ####[facility] [address] [place], [address] Chloride [Moles/Vol] 96 mmol/L Low 98-108 [facility] Comment on above: Performed By: #### L 500.2500, L100.0100 ####[facility] [address] [place], [address] CO2 [Moles/Vol] 21.4 mmol/L Normal 21.0-32.0 [facility] Comment on above: Performed By: #### L 500.2500, L100.0100 ####[facility] [address] [place], [address] Creatinine [Mass/Vol] 2.53 mg/dL High 0.70-1.20 [facility] Comment on above: Performed By: #### L 500.2500, L100.0100 ####[facility] [address] [place], [address] ECRCL 28.47 ml/min Low 50-250 [facility] Comment on above: Performed By: #### L 500.2500, L100.0100 ####[facility] [address] [place], [address] GAP 19 High 5-15 [facility] Comment on above: Performed By: #### L 500.2500, L100.0100 ####[facility] [address] [place], [address] GFR/1.73 sq M.predicted among non-blacks MDRD (S/P/Bld) [Vol rate/Area] 25 mL/min/{1.73_m2} Low >60 [facility] Comment on above: Result Comment: mL/m in/1.73m2 CKD-EPI Creatinine Equation (2020) Performed By: #### L 500.2500, L100.0100 ####[facility] [address] [place], [address] Glucose [Mass/Vol] 140 mg/dL High 70-99 [facility] Comment on above: Performed By: #### L 500.2500, L100.0100 ####[facility] [address] [place], [address] Potassium [Moles/Vol] 3.1 mmol/L Low 3.3-5.1 [facility] Comment on above: Performed By: #### L 500.2500, L100.0100 ####[facility] [address] [place], [address] Sodium [Moles/Vol] 137 mmol/L Normal 133-145 [facility] Comment on above: Performed By: #### L 500.2500, L100.0100 ####[facility] [address] [place], [address] Urea nitrogen [Mass/Vol] 49 mg/dL High 4-19 [facility] Comment on above: Performed By: #### L 500.2500, L100.0100 ####[facility] [address] [place], [address] Basophil percentageOrdered B y: Ramonita Herron on 12-04-2024 Basophils/100 WBC (Bld) 0.3 % 0-1 [facility] Bedside Glucoseon 12-04-2024 FINGERSTICK GLU 151 mg/dL High 74-106 [facility] Comment on above: Result Comment: WILDA GEMENT OF PATIENT CARE PER NURSING PROTOCOL Performed By: #### L 501.080 ####[facility] [address] [place], [address] FINGERSTICK GLU 147 mg/dL High 74-106 [facility] Comment on above: Result Comment: WILDA GEMENT OF PATIENT CARE PER NURSING PROTOCOL Performed By: #### L 501.080 ####[facility] [address] [place], [address] FINGERSTICK GLU 207 mg/dL High 74-106 [facility] Comment on above: Result Comment: WILDA GEMENT OF PATIENT CARE PER NURSING PROTOCOL Performed By: #### L 501.080 ####[facility] [address] [place], [address] FINGERSTICK GLU 147 mg/dL High 74-106 [facility] Comment on above: Result Comment: WILDA BARROSO OF PATIENT CARE PER NURSING PROTOCOL Performed By: #### L 501.080 ####[facility] [address] [place], [address] CBC W/Diff, Automatedon 08-0 4-2024 Absolute Lymph 1.07 X10 3/uL Normal 0.83-4.51 [facility] Comment on above: Performed By: #### L 500.2500, L100.0100 ####[facility] [address] [place], [address] Absolute Neut 7.1 X10 3/uL Normal 2.0-7.7 [facility] Comment on above: Performed By: #### L 500.2500, L100.0100 ####[facility] [address] [place], [address] Basophils/100 WBC (Bld) 0.3 % Normal 0-1 [facility] Comment on above: Performed By: #### L 500.2500, L100.0100 ####[facility] [address] [place], [address] Eosinophils/100 WBC (Bld) 2.2 % Normal 0-5 [facility] Comment on above: Performed By: #### L 500.2500, L100.0100 ####[facility] [address] [place], [address] Erythrocyte distribution width (RBC) [Ratio] 13.7 % Normal 11.6-14.6 [facility] Comment on above: Performed By: #### L 500.2500, L100.0100 ####[facility] [address] [place], [address] Hematocrit (Bld) [Volume fraction] 31.5 % Low 40-54 [facility] Comment on above: Performed By: #### L 500.2500, L100.0100 ####[facility] [address] [place], [address] Hemoglobin (Bld) [Mass/Vol] 10.5 g/dL Low 13.0-16.5 [facility] Comment on above: Performed By: #### L 500.2500, L100.0100 ####[facility] [address] [place], [address] IG% 0.600 Normal 0.0-0.9 [facility] Comment on above: Result Comment: IG% - Immature Granulocytes (promyelocytes, myelocytes andmetamyelocytes) > 1% indicates that a LEFT SHIFT is Present. Performed By: #### L 500.2500, L100.0100 ####[facility] [address] [place], [address] Lymphocytes/100 WBC (Bld) 11.1 % Low 19-41 [facility] Comment on above: Performed By: #### L 500.2500, L100.0100 ####[facility] [address] [place], [address] MCH (RBC) [Entitic mass] 29.2 pg Normal 27.0-32.0 [facility] Comment on above: Performed By: #### L 500.2500, L100.0100 ####[facility] [address] [place], [address] MCHC (RBC) [Mass/Vol] 33.3 g/dL Normal 32-36 [facility] Comment on above: Performed By: #### L 500.2500, L100.0100 ####[facility] [address] [place], [address] MCV (RBC) [Entitic vol] 87.7 fL Normal 80-94 [facility] Comment on above: Performed By: #### L 500.2500, L100.0100 ####[facility] [address] [place], [address] Monocytes/100 WBC (Bld) 11.9 % High 0-10 [facility] Comment on above: Performed By: #### L 500.2500, L100.0100 ####[facility] [address] [place], [address] Neutrophils/100 WBC (Bld) 73.9 % High 47-70 [facility] Comment on above: Performed By: #### L 500.2500, L100.0100 ####[facility] [address] [place], [address] Nucleated RBC (Bld) [#/Vol] 0 10*3/uL Normal 0-5 [facility] Comment on above: Performed By: #### L 500.2500, L100.0100 ####[facility] [address] [place], [address] Platelet mean volume (Bld) [Entitic vol] 13.7 fL High 6.2-12.0 [facility] Comment on above: Performed By: #### L 500.2500, L100.0100 ####[facility] [address] [place], [address] Platelets (Bld) [#/Vol] 126 10*3/uL Low 150-450 [facility] Comment on above: Performed By: #### L 500.2500, L100.0100 ####[facility] [address] [place], [address] RBC (Bld) [#/Vol] 3.59 10*6/uL Low 4.6-6.2 [facility] Comment on above: Performed By: #### L 500.2500, L100.0100 ####[facility] [address] [place], [address] RDW SD 43.8 fl Normal 35.1-43.9 [facility] Comment on above: Performed By: #### L 500.2500, L100.0100 ####[facility] [address] [place], [place], [id number] WBC (Bld) [#/Vol] 9.7 10*3/uL Normal 4.4-11.0 [facility] Comment on above: Performed By: #### L 500.2500, L100.0100 ####[facility] [address] [place], [place], [address] Cardiac catheterization repo rtOrdered By: Marcin Araujo on 12-04-2024 Cardiac catheterization study [facility] Work Phone: [phone] Electrocardiogram reportOrde red By: Marcin Araujo on 12-04-2024 EKG study [facility] Work Phone: [phone] Eosinophil percentageOrdered By: Ramonita Herron on 12-04-2024 Eosinophils/100 WBC (Bld) 2.2 % 0-5 [facility] Erythrocyte distribution wid th ratioOrdered By: Ramonita Herron on 12-04-2024 Erythrocyte distribution width (RBC) [Ratio] 13.7 % 11.6-14.6 [facility] Erythrocyte distribution wid th standard deviationOrdered By: Ramonita Herron on 12-04-2024 Erythrocyte distribution width (RBC) [Ratio] 43.8 fl 35.1-43.9 [facility] Hematocrit Auto (Bld) [Volum e fraction]Ordered By: Ramonita Herron on 12-04-2024 Hematocrit (Bld) [Volume fraction] 31.5 % Low 40-54 [facility] Hemoglobin measurementOrdere d By: Ramonita Herron on 12-04-2024 Hemoglobin (Bld) [Mass/Vol] 10.5 g/dL Low 13.0-16.5 [facility] Immature granulocytes/100 WB C Auto (Bld)Ordered By: Ramonita Herron on 12-04-2024 Immature granulocytes/100 WBC (Bld) 0.600 % 0.0-0.9 [facility] MCV (mean corpuscular volume ) determinationOrdered By: Ramonita Herron on 12-04-2024 MCV (RBC) [Entitic vol] 87.7 fL 80-94 [facility] Mean corpuscular hemoglobin (MCH) determinationOrdered By: Ramonita Herron on 12-04-2024 MCH (RBC) [Entitic mass] 29.2 pg 27.0-32.0 [facility] Monocyte percentageOrdered B y: Ramontia Herron on 12-04-2024 Monocytes/100 WBC (Bld) 11.9 % High 0-10 [facility] Neutrophil percentageOrdered By: Ramonita Herron on 12-04-2024 Neutrophils/100 WBC (Bld) 73.9 % High 47-70 [facility] Platelet countOrdered By: Parish Herron on 12-04-2024 Platelets (Bld) [#/Vol] 126 10*3/uL Low 150-450 [facility] RBC Auto (Bld) [#/Vol]Ordere d By: Ramonita Herron on 12-04-2024 RBC (Bld) [#/Vol] 3.59 10*6/uL Low 4.6-6.2 [facility] White blood cell (WBC) count Ordered By: Ramonita Herron on 12-04-2024 WBC (Bld) [#/Vol] 9.7 10*3/uL 4.4-11.0 [facility] 12 Lead EKGon 12-03-2024 12 Lead EKG Normal [facility] Bedside Glucoseon 12-03-2024 FINGERSTICK GLU 153 mg/dL High 74-106 [facility] Comment on above: Result Comment: WILDA GEMENT OF PATIENT CARE PER NURSING PROTOCOL Performed By: #### L 501.080 ####[facility] [address] [facility] [address] FINGERSTICK GLU 156 mg/dL High 74-106 [facility] Comment on above: Result Comment: WILDA GEMENT OF PATIENT CARE PER NURSING PROTOCOL Performed By: #### L 501.080 ####[facility] [address] [place], [address] FINGERSTICK GLU 226 mg/dL High 74-106 [facility] Comment on above: Result Comment: WILDA GEMENT OF PATIENT CARE PER NURSING PROTOCOL Performed By: #### L 501.080 ####[facility] [address] [place], [address] FINGERSTICK GLU 140 mg/dL High 74-106 [facility] Comment on above: Result Comment: WILDA GEMENT OF PATIENT CARE PER NURSING PROTOCOL Performed By: #### L 501.080 ####[facility] [address] [place], [address] FINGERSTICK GLU 200 mg/dL High 74-106 [facility] Comment on above: Result Comment: WILDA GEMENT OF PATIENT CARE PER NURSING PROTOCOL Performed By: #### L 501.080 ####[facility] [address] [place], [address] Bilirubin Test strip Ql (U)O rdered By: Alex Resendez on 12-03-2024 Bilirubin Ql (U) Negative Negative [facility] Bilirubin, totalOrdered By: Alex Resendez on 12-03-2024 Bilirubin [Mass/Vol] 1.27 mg/dL 0.00-1.30 [facility] CBC W/Diff, Automatedon 08 Absolute Lymph 0.95 X10 3/uL Normal 0.83-4.51 [facility] Comment on above: Performed By: #### L 100.0100, L500.4050, L501.2300, L501.5200 ####[facility] [address] [place], [address] Absolute Neut 6.9 X10 3/uL Normal 2.0-7.7 [facility] Comment on above: Performed By: #### L 100.0100, L500.4050, L501.2300, L501.5200 ####[facility] [address] [place], [address] Basophils/100 WBC (Bld) 0.2 % Normal 0-1 [facility] Comment on above: Performed By: #### L 100.0100, L500.4050, L501.2300, L501.5200 ####[facility] [address] [place], [address] Eosinophils/100 WBC (Bld) 1.8 % Normal 0-5 [facility] Comment on above: Performed By: #### L 100.0100, L500.4050, L501.2300, L501.5200 ####[facility] [address] [place], [address] Erythrocyte distribution width (RBC) [Ratio] 14.2 % Normal 11.6-14.6 [facility] Comment on above: Performed By: #### L 100.0100, L500.4050, L501.2300, L501.5200 ####[facility] [address] [place], [address] Hematocrit (Bld) [Volume fraction] 31.8 % Low 40-54 [facility] Comment on above: Performed By: #### L 100.0100, L500.4050, L501.2300, L501.5200 ####[facility] [address] [place], [address] Hemoglobin (Bld) [Mass/Vol] 10.3 g/dL Low 13.0-16.5 [facility] Comment on above: Performed By: #### L 100.0100, L500.4050, L501.2300, L501.5200 ####[facility] [address] [place], [address] IG% 0.600 Normal 0.0-0.9 [facility] Comment on above: Result Comment: IG% - Immature Granulocytes (promyelocytes, myelocytes andmetamyelocytes) > 1% indicates that a LEFT SHIFT is Present. Performed By: #### L 100.0100, L500.4050, L501.2300, L501.5200 ####[facility] [address] [place], [address] Lymphocytes/100 WBC (Bld) 10.5 % Low 19-41 [facility] Comment on above: Performed By: #### L 100.0100, L500.4050, L501.2300, L501.5200 ####[facility] [address] [place], [address] MCH (RBC) [Entitic mass] 29.3 pg Normal 27.0-32.0 [facility] Comment on above: Performed By: #### L 100.0100, L500.4050, L501.2300, L501.5200 ####[facility] [address] [place], [address] MCHC (RBC) [Mass/Vol] 32.4 g/dL Normal 32-36 [facility] Comment on above: Performed By: #### L 100.0100, L500.4050, L501.2300, L501.5200 ####[facility] [address] [place], [address] MCV (RBC) [Entitic vol] 90.3 fL Normal 80-94 [facility] Comment on above: Performed By: #### L 100.0100, L500.4050, L501.2300, L501.5200 ####[facility] [address] [place], [address] Monocytes/100 WBC (Bld) 11.4 % High 0-10 [facility] Comment on above: Performed By: #### L 100.0100, L500.4050, L501.2300, L501.5200 ####[facility] [address] [place], [address] Neutrophils/100 WBC (Bld) 75.5 % High 47-70 [facility] Comment on above: Performed By: #### L 100.0100, L500.4050, L501.2300, L501.5200 ####[facility] [address] [place], [address] Nucleated RBC (Bld) [#/Vol] 0 10*3/uL Normal 0-5 [facility] Comment on above: Performed By: #### L 100.0100, L500.4050, L501.2300, L501.5200 ####[facility] [address] [place], [address] Platelet mean volume (Bld) [Entitic vol] 12.4 fL High 6.2-12.0 [facility] Comment on above: Performed By: #### L 100.0100, L500.4050, L501.2300, L501.5200 ####[facility] [address] [place], [address] Platelets (Bld) [#/Vol] 104 10*3/uL Low 150-450 [facility] Comment on above: Performed By: #### L 100.0100, L500.4050, L501.2300, L501.5200 ####[facility] [address] [place], [address] RBC (Bld) [#/Vol] 3.52 10*6/uL Low 4.6-6.2 [facility] Comment on above: Performed By: #### L 100.0100, L500.4050, L501.2300, L501.5200 ####[facility] [address] [place], [address] RDW SD 46.0 fl High 35.1-43.9 [facility] Comment on above: Performed By: #### L 100.0100, L500.4050, L501.2300, L501.5200 ####[facility] [address] [place], [address] WBC (Bld) [#/Vol] 9.1 10*3/uL Normal 4.4-11.0 [facility] Comment on above: Performed By: #### L 100.0100, L500.4050, L501.2300, L501.5200 ####[facility] [address] [place], [address] Comprehensive Metabolic Prof ilon 12-03-2024 Albumin [Mass/Vol] 3.4 g/dL Normal 3.4-4.8 [facility] Comment on above: Performed By: #### L 100.0100, L500.4050, L501.2300, L501.5200 ####[facility] [address] [place], [address] Albumin/Globulin [Mass ratio] 1.2 {ratio} Normal 0.9-2.4 [facility] Comment on above: Performed By: #### L 100.0100, L500.4050, L501.2300, L501.5200 ####[facility] [address] [place], [address] ALK PHOS 94 U/L Normal 40-129 [facility] Comment on above: Performed By: #### L 100.0100, L500.4050, L501.2300, L501.5200 ####[facility] [address] [place], [address] ALT [Catalytic activity/Vol] 47 U/L Normal <=46 [facility] Comment on above: Performed By: #### L 100.0100, L500.4050, L501.2300, L501.5200 ####[facility] [address] [place], [address] AST [Catalytic activity/Vol] 134 U/L High <=37 [facility] Comment on above: Performed By: #### L 100.0100, L500.4050, L501.2300, L501.5200 ####[facility] [address] [place], [address] Bilirubin [Mass/Vol] 1.27 mg/dL Normal 0.00-1.30 [facility] Comment on above: Performed By: #### L 100.0100, L500.4050, L501.2300, L501.5200 ####[facility] [address] [place], [address] BUN/CRE 20.6 RATIO High 10-20 [facility] Comment on above: Performed By: #### L 100.0100, L500.4050, L501.2300, L501.5200 ####[facility] [address] [place], [address] Calcium [Mass/Vol] 8.9 mg/dL Normal 7.6-11.0 [facility] Comment on above: Performed By: #### L 100.0100, L500.4050, L501.2300, L501.5200 ####[facility] [address] [place], [address] Chloride [Moles/Vol] 100 mmol/L Normal 98-108 [facility] Comment on above: Performed By: #### L 100.0100, L500.4050, L501.2300, L501.5200 ####[facility] [address] [place], [address] CO2 [Moles/Vol] 18.7 mmol/L Low 21.0-32.0 [facility] Comment on above: Performed By: #### L 100.0100, L500.4050, L501.2300, L501.5200 ####[facility] [address] [place], [address] Creatinine [Mass/Vol] 2.58 mg/dL High 0.70-1.20 [facility] Comment on above: Performed By: #### L 100.0100, L500.4050, L501.2300, L501.5200 ####[facility] [address] [place], [address] ECRCL 28.22 ml/min Low 50-250 [facility] Comment on above: Performed By: #### L 100.0100, L500.4050, L501.2300, L501.5200 ####[facility] [address] [place], [address] GAP 15 Normal 5-15 [facility] Comment on above: Performed By: #### L 100.0100, L500.4050, L501.2300, L501.5200 ####[facility] [address] [place], [address] GFR/1.73 sq M.predicted among non-blacks MDRD (S/P/Bld) [Vol rate/Area] 25 mL/min/{1.73_m2} Low >60 [facility] Comment on above: Result Comment: mL/m in/1.73m2 CKD-EPI Creatinine Equation (2020) Performed By: #### L 100.0100, L500.4050, L501.2300, L501.5200 ####[facility] [address] [place], [address] Globulin (S) [Mass/Vol] 2.8 g/dL Normal 2.2-4.2 [facility] Comment on above: Performed By: #### L 100.0100, L500.4050, L501.2300, L501.5200 ####[facility] [address] [place], [address] Glucose [Mass/Vol] 154 mg/dL High 70-99 [facility] Comment on above: Performed By: #### L 100.0100, L500.4050, L501.2300, L501.5200 ####[facility] [address] [place], [address] Potassium [Moles/Vol] 3.7 mmol/L Normal 3.3-5.1 [facility] Comment on above: Performed By: #### L 100.0100, L500.4050, L501.2300, L501.5200 ####[facility] [address] [place], [address] Sodium [Moles/Vol] 134 mmol/L Normal 133-145 [facility] Comment on above: Performed By: #### L 100.0100, L500.4050, L501.2300, L501.5200 ####[facility] [address] [place], [address] T PROT 6.3 g/dL Normal 5.9-8.4 [facility] Comment on above: Performed By: #### L 100.0100, L500.4050, L501.2300, L501.5200 ####[facility] [address] [place], [address] Urea nitrogen [Mass/Vol] 53 mg/dL High 4-19 [facility] Comment on above: Performed By: #### L 100.0100, L500.4050, L501.2300, L501.5200 ####[facility] [address] [place], [address] Consultation - Cardiologyon 12-03-2024 Consultation - Cardiology Normal [facility] Ketones Test strip Ql (U)Ord ered By: Alex Resendez on 12-03-2024 Ketones Ql (U) Negative Negative [facility] Magnesiumon 12-03-2024 Magnesium [Mass/Vol] 2.5 mg/dL High 1.5-2.2 [facility] Comment on above: Performed By: #### L 100.0100, L500.4050, L501.2300, L501.5200 ####[facility] [address] [place], [address] Magnesium measurement (mass/ volume)Ordered By: Alex Resendez on 12-03-2024 Magnesium (Unsp spec) [Mass/Vol] 2.5 mg/dL High 1.5-2.2 [facility] Mucus LM Ql (Urine sed)Order ed By: Alex Resendez on 12-03-2024 Mucus Ql (Urine sed) 0 SEEN /hpf [facility] Nitrite Test strip Ql (U)Ord ered By: Alex Resendez on 12-03-2024 Nitrite Ql (U) Negative Negative [facility] No Panel InformationOrdered By: Alex Resendez on 12-03-2024 134 U/L High <38 [facility] Phosphoruson 12-03-2024 Phosphate [Mass/Vol] 3.4 mg/dL Normal 2.7-4.5 [facility] Comment on above: Performed By: #### L 100.0100, L500.4050, L501.2300, L501.5200 ####[facility] [address] [place], [address] Protein Test strip Ql (U)Ord ered By: Alex Resendez on 12-03-2024 Protein Ql (U) 15 mg/dl High Negative [facility] Serum globulin measurementOr dered By: Alex Resendez on 12-03-2024 Globulin (S) [Mass/Vol] 2.8 g/dL 2.2-4.2 [facility] Serum or plasma alanine guerrero otransferase (ALT) measurementOrdered By: Alex Resendez on 12-03-2024 ALT [Catalytic activity/Vol] 47 U/L <47 [facility] Serum or plasma albumin francine urement (mass/volume)Ordered By: Alex Resendez on 12-03-2024 Albumin [Mass/Vol] 3.4 g/dL 3.4-4.8 [facility] Serum or plasma albumin/glob ulin mass ratioOrdered By: Alex Resendez on 12-03-2024 Albumin/Globulin [Mass ratio] 1.2 {ratio} 0.9-2.4 [facility] Serum or plasma alkaline bell sphatase measurementOrdered By: Alex Resendez on 12-03-2024 ALP [Catalytic activity/Vol] 94 U/L 40-129 [facility] Squamous epithelial cells de tection in urine sediment by light microscopyOrdered By: Alex Resendez on 12-03-2024 Epithelial cells.squamous LM Ql (Urine sed) 0 SEEN /hpf 0-5 [facility] Total proteinOrdered By: Yoseph Westonenzo on 12-03-2024 Protein [Mass/Vol] 6.3 g/dL 5.9-8.4 [facility] Troponin T HS 2 HRon 025 Trop T High Sen > 07519 Invalid Interpretation Code <=22 [facility] Comment on above: Result Comment: Crit ical Result(s) Called at:0007 by:??KEIKO BABB Results read back by same. Performed By: #### L 499.0042 ####[facility] [address] [place], [place], [id number] Troponin T HS 4 HRon 025 Trop T High Sen > 31504 Invalid Interpretation Code <=22 [facility] Comment on above: Result Comment: Crit ical Result(s) Called at: 0240 by:??KEIKO HOOPER Results read back by same. Performed By: #### L 499.0043 ####[facility] [address] [place], [place], [phone] Troponin T.cardiac [Mass/vol ume] in Serum or Plasma by High sensitivity methodOrdered By: Rasheed Canela on 12-03-2024 Troponin T.cardiac High sensitivity method [Mass/Vol] > 60793 ng/L High <22 [facility] Urinalysis, Completeon 12-03 BACTERIA 0 SEEN Normal None Seen [facility] Comment on above: Order Comment: CLEAN CATCH Performed By: #### L 400.0001 ####[facility] [address] [place], [place], [phone] EPI,SQUAMOUS 0 SEEN Normal 0-5 [facility] Comment on above: Order Comment: CLEAN CATCH Performed By: #### L 400.0001 ####[facility] [address] [place], [address] Mucus Ql (Urine sed) 0 SEEN Normal [facility] Comment on above: Order Comment: CLEAN CATCH Performed By: #### L 400.0001 ####[facility] [address] [place], [address] RBC 0 SEEN Normal 0-5 [facility] Comment on above: Order Comment: CLEAN CATCH Performed By: #### L 400.0001 ####[facility] [address] [place], [address] WBC 0 SEEN Normal 0-5 [facility] Comment on above: Order Comment: CLEAN CATCH Performed By: #### L 400.0001 ####[facility] [address] [place], [place], [phone] Urine clarityOrdered By: Yoseph Resendez on 12-03-2024 Clarity (U) Clear Clear [facility] Urine color determinationOrd ered By: Alex Resendez on 12-03-2024 Color (U) Yellow Yellow [facility] Urine glucose detectionOrder ed By: Alex Resendez on 12-03-2024 Glucose Ql (U) Normal mg/dl Normal [facility] Urine leukocyte esterase det ection by dipstickOrdered By: Alex Resendez on 12-03-2024 Leukocyte esterase Test strip Ql (U) Negative Negative [facility] Urine pHOrdered By: Alex best on 12-03-2024 pH (U) 6.0 [pH] 5.0 - 8.0 [facility] Urine sediment bacteria coun t by microscopy (number/high power field)Ordered By: Alex Resendez on 12-03-2024 Bacteria LM.HPF (Urine sed) [#/Area] 0 /[HPF] None Seen [facility] Urine specific gravity measu rementOrdered By: Alex Resendez on 12-03-2024 Specific gravity (U) [Rel density] 1.015 1.002-1.03 0 [facility] Urine urobilinogen measureme ntOrdered By: Alex Resendez on 12-03-2024 Urobilinogen Ql (U) Normal mg/dl Normal [facility] White blood cell countOrdere d By: Alex Resendez on 12-03-2024 White blood cell count 0 SEEN /hpf 0-5 [facility] 12 Lead EKGon 12-02-2024 12 Lead EKG Normal [facility] ACT Activated Clotting Timeo n 12-02-2024 ACTk CLOT TIME 245 sec High 74-137 [facility] Comment on above: Performed By: #### L 9100.0100 ####[facility] [address] [place], [address] Absolute lymphocyte countOrd ered By: Rasheed Canela on 12-02-2024 Lymphocytes Auto (Unsp spec) [#/Vol] 1.13 10*3/uL 0.83-4.51 [facility] Absolute lymphocyte countOrd ered By: Nickie Danielson on 12-02-2024 Lymphocytes Auto (Unsp spec) [#/Vol] 0.85 10*3/uL 0.83-4.51 [facility] Activated partial thrombopla stin time (aPTT) in platelet poor plasma by coagulation aOrdered By: Rasheed Canela on 12-02-2024 aPTT Coag (PPP) [Time] 31.6 s 24.1-36.2 [facility] Anion gap in Serum or Plasma Ordered By: Rasheed Canela on 12-02-2024 Anion gap [Moles/Vol] 14 mmol/L 09-14 [facility] Anion gap in Serum or Plasma Ordered By: Nickie Danielson on 12-02-2024 Anion gap [Moles/Vol] 14 mmol/L 09-14 [facility] Automated lymphocyte count a s percentage of total leukocytesOrdered By: Rasheed Canela on 12-02-2024 Lymphocytes/100 WBC Auto (Unsp spec) 8.9 % Low [facility] Automated lymphocyte count a s percentage of total leukocytesOrdered By: Nickie Danielson on 12-02-2024 Lymphocytes/100 WBC Auto (Unsp spec) 7.6 % Low [facility] BUN/creatinine ratioOrdered By: Rasheed Canela on 08-02-2025 Urea nitrogen/Creatinine [Mass ratio] 18.0 mg/mg 02-19 [facility] BUN/creatinine ratioOrdered By: Nickie Danielson on 12-02-2024 Urea nitrogen/Creatinine [Mass ratio] 17.2 mg/mg 02-19 [facility] Basic Metabolic Profile (BMP )on 12-02-2024 BUN/CRE 18.0 RATIO Normal 02-19 [facility] Comment on above: Performed By: #### L 300.4310, L501.4021, L300.3900, L500.2500, L100.0100 ####[facility] [address] [place], [address] Calcium [Mass/Vol] 9.1 mg/dL Normal 7.6-11.0 [facility] Comment on above: Performed By: #### L 300.4310, L501.4021, L300.3900, L500.2500, L100.0100 ####[facility] [address] [place], [address] Chloride [Moles/Vol] 96 mmol/L Low 98-108 [facility] Comment on above: Performed By: #### L 300.4310, L501.4021, L300.3900, L500.2500, L100.0100 ####[facility] [address] [place], [address] CO2 [Moles/Vol] 20.5 mmol/L Low 21.0-32.0 [facility] Comment on above: Performed By: #### L 300.4310, L501.4021, L300.3900, L500.2500, L100.0100 ####[facility] [address] [place], [address] Creatinine [Mass/Vol] 2.90 mg/dL High 0.70-1.20 [facility] Comment on above: Performed By: #### L 300.4310, L501.4021, L300.3900, L500.2500, L100.0100 ####[facility] [address] [place], [address] ECRCL 25.31 ml/min Low 50-250 [facility] Comment on above: Performed By: #### L 300.4310, L501.4021, L300.3900, L500.2500, L100.0100 ####[facility] [address] [place], [address] GAP 14 Normal 5-15 [facility] Comment on above: Performed By: #### L 300.4310, L501.4021, L300.3900, L500.2500, L100.0100 ####[facility] [address] [place], [address] GFR/1.73 sq M.predicted among non-blacks MDRD (S/P/Bld) [Vol rate/Area] 21 mL/min/{1.73_m2} Low >60 [facility] Comment on above: Result Comment: mL/m in/1.73m2 CKD-EPI Creatinine Equation (2020) Performed By: #### L 300.4310, L501.4021, L300.3900, L500.2500, L100.0100 ####[facility] [address] [place], [address] Glucose [Mass/Vol] 175 mg/dL High 70-99 [facility] Comment on above: Performed By: #### L 300.4310, L501.4021, L300.3900, L500.2500, L100.0100 ####[facility] [address] [place], [address] Potassium [Moles/Vol] 4.6 mmol/L Normal 3.3-5.1 [facility] Comment on above: Performed By: #### L 300.4310, L501.4021, L300.3900, L500.2500, L100.0100 ####[facility] [address] [place], [address] Sodium [Moles/Vol] 131 mmol/L Low 133-145 [facility] Comment on above: Performed By: #### L 300.4310, L501.4021, L300.3900, L500.2500, L100.0100 ####[facility] [address] [place], [address] Urea nitrogen [Mass/Vol] 52 mg/dL High 4-19 [facility] Comment on above: Performed By: #### L 300.4310, L501.4021, L300.3900, L500.2500, L100.0100 ####[facility] [address] [place], [address] BUN/CRE 17.2 RATIO Normal 10-20 [facility] Comment on above: Performed By: #### L 500.2500, L100.0100 ####[facility] [address] [place], [address] Calcium [Mass/Vol] 9.3 mg/dL Normal 7.6-11.0 [facility] Comment on above: Performed By: #### L 500.2500, L100.0100 ####[facility] [address] [place], [address] Chloride [Moles/Vol] 99 mmol/L Normal 98-108 [facility] Comment on above: Performed By: #### L 500.2500, L100.0100 ####[facility] [address], [address] CO2 [Moles/Vol] 20.6 mmol/L Low 21.0-32.0 [facility] Comment on above: Performed By: #### L 500.2500, L100.0100 ####[facility] [address] [place], [address] Creatinine [Mass/Vol] 2.93 mg/dL High 0.70-1.20 [facility] Comment on above: Performed By: #### L 500.2500, L100.0100 ####[facility] [address] [place], [address] ECRCL 24.95 ml/min Low 50-250 [facility] Comment on above: Performed By: #### L 500.2500, L100.0100 ####[facility] [address] [place], [address] GAP 14 Normal 5-15 [facility] Comment on above: Performed By: #### L 500.2500, L100.0100 ####[facility] [address] [place], [address] GFR/1.73 sq M.predicted among non-blacks MDRD (S/P/Bld) [Vol rate/Area] 21 mL/min/{1.73_m2} Low >60 [facility] Comment on above: Result Comment: mL/m in/1.73m2 CKD-EPI Creatinine Equation (2020) Performed By: #### L 500.2500, L100.0100 ####[facility] [address] [place], [address] Glucose [Mass/Vol] 138 mg/dL High 70-99 [facility] Comment on above: Performed By: #### L 500.2500, L100.0100 ####[facility] [address] [place], [address] Potassium [Moles/Vol] 4.8 mmol/L Normal 3.3-5.1 [facility] Comment on above: Performed By: #### L 500.2500, L100.0100 ####[facility] [address] [place], [address] Sodium [Moles/Vol] 133 mmol/L Normal 133-145 [facility] Comment on above: Performed By: #### L 500.2500, L100.0100 ####[facility] [address] [place], [address] Urea nitrogen [Mass/Vol] 50 mg/dL High 4-19 [facility] Comment on above: Performed By: #### L 500.2500, L100.0100 ####[facility] [address] [place], [address] Basophil percentageOrdered B y: Rasheedjulian Burriso on 12-02-2024 Basophils/100 WBC (Bld) 0.3 % 0-1 [facility] Basophil percentageOrdered B y: Nickie Danielson on 12-02-2024 Basophils/100 WBC (Bld) 0.1 % 0-1 [facility] Bedside Glucoseon 12-02-2024 FINGERSTICK GLU 129 mg/dL High 74-106 [facility] Comment on above: Result Comment: WILDA BARROSO OF PATIENT CARE PER NURSING PROTOCOL Performed By: #### L 501.080 ####[facility] [address] [place], [address] Blood manual differential co mment interpretation (narrative result)Ordered By: Rasheed Canela on 12-02-2024 Manual differential comment Luis Manuel (Bld) [Interp] SCANNED [facility] Brain without Contraston Brain without Contrast Normal [facility] CBC W/Diff, Automatedon PLT EST SLT DEC Normal ADEQ [facility] Comment on above: Performed By: #### L 300.4310, L501.4021, L300.3900, L500.2500, L100.0100 ####[facility] [address] [place], [address] SMEAR COMMENT SCANNED Normal [facility] Comment on above: Performed By: #### L 300.4310, L501.4021, L300.3900, L500.2500, L100.0100 ####[facility] [address] [place], [address] Absolute Lymph 0.85 X10 3/uL Normal 0.83-4.51 [facility] Comment on above: Performed By: #### L 500.2500, L100.0100 ####[facility] [address] [place], [address] Absolute Neut 8.8 X10 3/uL High 2.0-7.7 [facility] Comment on above: Performed By: #### L 500.2500, L100.0100 ####[facility] [address] [place], [address] Basophils/100 WBC (Bld) 0.1 % Normal 0-1 [facility] Comment on above: Performed By: #### L 500.2500, L100.0100 ####[facility] [address] [place], [address] Eosinophils/100 WBC (Bld) 0.7 % Normal 0-5 [facility] Comment on above: Performed By: #### L 500.2500, L100.0100 ####[facility] [address] [place], [address] Erythrocyte distribution width (RBC) [Ratio] 14.4 % Normal 11.6-14.6 [facility] Comment on above: Performed By: #### L 500.2500, L100.0100 ####[facility] [address] [place], [address] Hematocrit (Bld) [Volume fraction] 32.1 % Low 40-54 [facility] Comment on above: Performed By: #### L 500.2500, L100.0100 ####[facility] [address] [place], [address] Hemoglobin (Bld) [Mass/Vol] 10.4 g/dL Low 13.0-16.5 [facility] Comment on above: Performed By: #### L 500.2500, L100.0100 ####[facility] [address] [place], [address] IG% 0.700 Normal 0.0-0.9 [facility] Comment on above: Result Comment: IG% - Immature Granulocytes (promyelocytes, myelocytes andmetamyelocytes) > 1% indicates that a LEFT SHIFT is Present. Performed By: #### L 500.2500, L100.0100 ####[facility] [address] [place], [address] Lymphocytes/100 WBC (Bld) 7.6 % Low 19-41 [facility] Comment on above: Performed By: #### L 500.2500, L100.0100 ####[facility] [address] [place], [address] MCH (RBC) [Entitic mass] 29.5 pg Normal 27.0-32.0 [facility] Comment on above: Performed By: #### L 500.2500, L100.0100 ####[facility] [address] [place], [address] MCHC (RBC) [Mass/Vol] 32.4 g/dL Normal 32-36 [facility] Comment on above: Performed By: #### L 500.2500, L100.0100 ####[facility] [address] [place], [address] MCV (RBC) [Entitic vol] 91.2 fL Normal 80-94 [facility] Comment on above: Performed By: #### L 500.2500, L100.0100 ####[facility] [address] [place], [address] Monocytes/100 WBC (Bld) 12.0 % High 0-10 [facility] Comment on above: Performed By: #### L 500.2500, L100.0100 ####[facility] [address] [place], [address] Neutrophils/100 WBC (Bld) 78.9 % High 47-70 [facility] Comment on above: Performed By: #### L 500.2500, L100.0100 ####[facility] [address] [place], [address] Nucleated RBC (Bld) [#/Vol] 0 10*3/uL Normal 0-5 [facility] Comment on above: Performed By: #### L 500.2500, L100.0100 ####[facility] [address] [place], [address] Platelet mean volume (Bld) [Entitic vol] 13.1 fL High 6.2-12.0 [facility] Comment on above: Performed By: #### L 500.2500, L100.0100 ####[facility] [address] [place], [address] Platelets (Bld) [#/Vol] 113 10*3/uL Low 150-450 [facility] Comment on above: Performed By: #### L 500.2500, L100.0100 ####[facility] [address] [place], [address] RBC (Bld) [#/Vol] 3.52 10*6/uL Low 4.6-6.2 [facility] Comment on above: Performed By: #### L 500.2500, L100.0100 ####[facility] [address] [place], [address] RDW SD 47.4 fl High 35.1-43.9 [facility] Comment on above: Performed By: #### L 500.2500, L100.0100 ####[facility] [address] [place], [address] WBC (Bld) [#/Vol] 11.2 10*3/uL High 4.4-11.0 [facility] Comment on above: Performed By: #### L 500.2500, L100.0100 ####[facility] [address] [place], [address] CVS/PCIREPORTon 12-02-2024 CVS/PCIREPORT Normal [facility] Carbon dioxide, total [Moles /volume] in Central venous bloodOrdered By: Rasheed Canela on 12-02-2024 CO2 [Moles/Vol] 20.5 mmol/L Low 21.0-32.0 [facility] Carbon dioxide, total [Moles /volume] in Central venous bloodOrdered By: Nickie Danielson on 12-02-2024 CO2 [Moles/Vol] 20.6 mmol/L Low 21.0-32.0 [facility] Chloride assayOrdered By: Afshin o Hilton on 12-02-2024 Chloride [Moles/Vol] 96 mmol/L Low 98-108 [facility] Chloride assayOrdered By: Korina Danielson on 12-02-2024 Chloride [Moles/Vol] 99 mmol/L 98-108 [facility] Emergency Department Summary on 12-02-2024 Emergency Department Summary Normal [facility] Eosinophil percentageOrdered By: Rasheed Canela on 12-02-2024 Eosinophils/100 WBC (Bld) 0.8 % 0-5 [facility] Eosinophil percentageOrdered By: Nickie Danielson on 12-02-2024 Eosinophils/100 WBC (Bld) 0.7 % 0-5 [facility] Erythrocyte distribution wid th ratioOrdered By: Rasheed Canela on 12-02-2024 Erythrocyte distribution width (RBC) [Ratio] 14.1 % 11.6-14.6 [facility] Erythrocyte distribution wid th ratioOrdered By: Nickie Danielson on 12-02-2024 Erythrocyte distribution width (RBC) [Ratio] 14.4 % 11.6-14.6 [facility] Erythrocyte distribution wid th standard deviationOrdered By: Rasheed Canela on 12-02-2024 Erythrocyte distribution width (RBC) [Ratio] 45.8 fl High 35.1-43.9 [facility] Erythrocyte distribution wid th standard deviationOrdered By: Nickie Danielson on 12-02-2024 Erythrocyte distribution width (RBC) [Ratio] 47.4 fl High 35.1-43.9 [facility] Glomerular filtration rate ( GFR) estimation/1.73 sq m using serum, plasma, or whole bOrdered By: Rasheed Canela on 12-02-2024 GFR/1.73 sq M.predicted among non-blacks MDRD (S/P/Bld) [Vol rate/Area] 21 mL/min/{1.73_m2} Low >60 [facility] Glomerular filtration rate ( GFR) estimation/1.73 sq m using serum, plasma, or whole bOrdered By: Nickie Danielson on 12-02-2024 GFR/1.73 sq M.predicted among non-blacks MDRD (S/P/Bld) [Vol rate/Area] 21 mL/min/{1.73_m2} Low >60 [facility] Gl[facility] at [facility] deOrdered By: Nickie Danielson on 12-02-2024 Glucose [Mass/Vol] 200 mg/dL High 74-106 [facility] Glucose [Mass/Vol] 129 mg/dL High 74-106 [facility] H AND P Exam - Hospitaliston 12-02-2024 H&P Exam - Hospitalist Normal [facility] Hematocrit Auto (Bld) [Volum e fraction]Ordered By: Rasheed Canela on 12-02-2024 Hematocrit (Bld) [Volume fraction] 34.1 % Low 40-54 [facility] Hematocrit Auto (Bld) [Volum e fraction]Ordered By: Nickie Danielson on 12-02-2024 Hematocrit (Bld) [Volume fraction] 32.1 % Low 40-54 [facility] Hemoglobin measurementOrdere d By: Rasheed Canela on 12-02-2024 Hemoglobin (Bld) [Mass/Vol] 11.1 g/dL Low 13.0-16.5 [facility] Hemoglobin measurementOrdere d By: Nickie Danielson on 12-02-2024 Hemoglobin (Bld) [Mass/Vol] 10.4 g/dL Low 13.0-16.5 [facility] Immature granulocytes/100 WB C Auto (Bld)Ordered By: Rasheed Canela on 12-02-2024 Immature granulocytes/100 WBC (Bld) 0.600 % 0.0-0.9 [facility] Immature granulocytes/100 WB C Auto (Bld)Ordered By: Nickie Danielson on 12-02-2024 Immature granulocytes/100 WBC (Bld) 0.700 % 0.0-0.9 [facility] L501.4021on 12-02-2024 Trop T High Sen > 645[address] Invalid Interpretation Code <=22 [facility] Comment on above: Result Comment: Crit ical Result(s) Called at: 2120 by: MOISE MENDIOLA??Results read back by same. Performed By: #### L 300.4310, L501.4021, L300.3900, L500.2500, L100.0100 ####[facility] [address] [place], [address] MCV (mean corpuscular volume ) determinationOrdered By: Rasheed Canela on 12-02-2024 MCV (RBC) [Entitic vol] 89.5 fL 80-94 [facility] MCV (mean corpuscular volume ) determinationOrdered By: Nickie Danielson on 12-02-2024 MCV (RBC) [Entitic vol] 91.2 fL 80-94 [facility] MR/CON.PCM.NEon 12-02-2024 MR/CON.PCM.NE Normal [facility] MRA Head ONLY without Contra ston 12-02-2024 MRA Head ONLY without Contrast Normal [facility] MRA Neck without Contraston 12-02-2024 MRA Neck without Contrast Normal [facility] Magnetic resonance imaging r eportOrdered By: Nghia Waters on 12-02-2024 Study report [facility] Mean corpuscular hemoglobin (MCH) determinationOrdered By: Rasheed Canela on 12-02-2024 MCH (RBC) [Entitic mass] 29.1 pg 27.0-32.0 [facility] Mean corpuscular hemoglobin (MCH) determinationOrdered By: Nickie Danielson on 12-02-2024 MCH (RBC) [Entitic mass] 29.5 pg 27.0-32.0 [facility] Monocyte percentageOrdered B y: Rasheed Canela on 12-02-2024 Monocytes/100 WBC (Bld) 12.7 % High 0-10 [facility] Monocyte percentageOrdered B y: Nickie Danielson on 12-02-2024 Monocytes/100 WBC (Bld) 12.0 % High 0-10 [facility] Neutrophil percentageOrdered By: Rasheed Canela on 12-02-2024 Neutrophils/100 WBC (Bld) 76.7 % High 47-70 [facility] Neutrophil percentageOrdered By: Nickie Danielson on 12-02-2024 Neutrophils/100 WBC (Bld) 78.9 % High 47-70 [facility] Center Partial Thromboplast Timeon 12-02-2024 aPTT Coag (Bld) [Time] 31.6 s Normal 24.1-36.2 [facility] Comment on above: Performed By: #### L 300.4310, L501.4021, L300.3900, L500.2500, L100.0100 ####[facility] [address], [place], [id number] Platelet countOrdered By: Afshin Canela on 12-02-2024 Platelets (Bld) [#/Vol] 134 10*3/uL Low 150-450 [facility] Platelet countOrdered By: Korina Danielson on 12-02-2024 Platelets (Bld) [#/Vol] 113 10*3/uL Low 150-450 [facility] Platelet estimateOrdered By: Rasheed Canela on 12-02-2024 Platelets LM Ql (Bld) SLT DEC ADEQ [facility] Potassium measurement (mass/ volume)Ordered By: Rasheed Canela on 12-02-2024 Potassium (Unsp spec) [Mass/Vol] 4.6 mmol/L 3.3-5.1 [facility] Potassium measurement (mass/ volume)Ordered By: Nickie Danielson on 12-02-2024 Potassium (Unsp spec) [Mass/Vol] 4.8 mmol/L 3.3-5.1 [facility] Prothrombin Time w/INRon INR Coag (PPP) [Relative time] 1.1 {INR} Normal [facility] Comment on above: Performed By: #### L 300.4310, L501.4021, L300.3900, L500.2500, L100.0100 ####[facility] [address] [place], [address] PT Coag (PPP) [Time] 14.6 s Normal 11.7-14.9 [facility] Comment on above: Performed By: #### L 300.4310, L501.4021, L300.3900, L500.2500, L100.0100 ####[facility] [address] [place], [address] Prothrombin timeOrdered By: Rasheed Canela on 12-02-2024 PT Coag (PPP) [Time] 14.6 s 11.7-14.9 [facility] RBC Auto (Bld) [#/Vol]Ordere d By: Rasheed Canela on 12-02-2024 RBC (Bld) [#/Vol] 3.81 10*6/uL Low 4.6-6.2 [facility] RBC Auto (Bld) [#/Vol]Ordere d By: Nickie Danielson on 12-02-2024 RBC (Bld) [#/Vol] 3.52 10*6/uL Low 4.6-6.2 [facility] Serum creatinine measurement (mass/volume)Ordered By: Rasheed Canela on 12-02-2024 Creatinine [Mass/Vol] 2.90 mg/dL High 0.70-1.20 [facility] Serum creatinine measurement (mass/volume)Ordered By: Nickie Danielson on 12-02-2024 Creatinine [Mass/Vol] 2.93 mg/dL High 0.70-1.20 [facility] Serum glucose measurement (m ass/volume)Ordered By: Rasheed Canela on 12-02-2024 Glucose [Mass/Vol] 175 mg/dL High 70- [facility] Serum glucose measurement (m ass/volume)Ordered By: Nickie Danielson on 12-02-2024 Glucose [Mass/Vol] 138 mg/dL High 70-99 [facility] Serum or plasma calcium francine urement (mass/volume)Ordered By: Rasheed Canela on 12-02-2024 Calcium [Mass/Vol] 9.1 mg/dL 7.6-11.0 [facility] Serum or plasma calcium francine urement (mass/volume)Ordered By: Nickie Danielson on 12-02-2024 Calcium [Mass/Vol] 9.3 mg/dL 7.6-11.0 [facility] Serum or plasma urea nitroge n measurement (mass/volume)Ordered By: Rasheed Canela on 12-02-2024 Urea nitrogen [Mass/Vol] 52 mg/dL High - [facility] Serum or plasma urea nitroge n measurement (mass/volume)Ordered By: Nickie Danielson on 12-02-2024 Urea nitrogen [Mass/Vol] 50 mg/dL High 08-19 [facility] Sodium levelOrdered By: Rasheed Canela on 12-02-2024 Sodium [Moles/Vol] 131 mmol/L Low 133-145 [facility] Sodium levelOrdered By: Johanna Danielson on 12-02-2024 Sodium [Moles/Vol] 133 mmol/L 133-145 [facility] Troponin T.cardiac [Mass/vol ume] in Serum or Plasma by High sensitivity methodOrdered By: Rasheed Canela on 12-02-2024 Troponin T.cardiac High sensitivity method [Mass/Vol] > 98405 ng/L High <22 [facility] Troponin T.cardiac High sensitivity method [Mass/Vol] > 29905 ng/L High <22 [facility] White blood cell (WBC) count Ordered By: Rasheed Canela on 12-02-2024 WBC (Bld) [#/Vol] 12.7 10*3/uL High 4.4-11.0 [facility] White blood cell (WBC) count Ordered By: Nickie Danielson on 12-02-2024 WBC (Bld) [#/Vol] 11.2 10*3/uL High 4.4-11.0 [facility] 12 Lead EKGon 12-01-2024 12 Lead EKG Normal [facility] Bedside Glucoseon 12-01-2024 FINGERSTICK GLU 148 mg/dL High 74-106 [facility] Comment on above: Result Comment: WILDA BARROSO OF PATIENT CARE PER NURSING PROTOCOL Performed By: #### L 501.080 ####[facility] [address] [place], [address] FINGERSTICK GLU 203 mg/dL High 74-106 [facility] Comment on above: Result Comment: WILDA GEMENT OF PATIENT CARE PER NURSING PROTOCOL Performed By: #### L 501.080 ####[facility] [address] [place], [address] FINGERSTICK GLU 153 mg/dL High 74-106 [facility] Comment on above: Result Comment: WILDA GEMENT OF PATIENT CARE PER NURSING PROTOCOL Performed By: #### L 501.080 ####[facility] [address] [place], [address] FINGERSTICK GLU 187 mg/dL High 74-106 [facility] Comment on above: Result Comment: WILDA GEMENT OF PATIENT CARE PER NURSING PROTOCOL Performed By: #### L 501.080 ####[facility] [address] [place], [address] FINGERSTICK GLU 223 mg/dL High -106 [facility] Comment on above: Result Comment: WILDA GEMENT OF PATIENT CARE PER NURSING PROTOCOL Performed By: #### L 501.080 ####[facility] [address] [place], [address] Bilirubin, totalOrdered By: Jose Hay on 12-01-2024 Bilirubin [Mass/Vol] 1.07 mg/dL 0.00-1.30 [facility] CBC-Complete Blood Cnt No Di ffon 12-01-2024 Erythrocyte distribution width (RBC) [Ratio] 14.0 % Normal 11.6-14.6 [facility] Comment on above: Performed By: #### L 100.0500, L500.4050 ####[facility] [address] [place], [address] Hematocrit (Bld) [Volume fraction] 33.2 % Low 40-54 [facility] Comment on above: Performed By: #### L 100.0500, L500.4050 ####[facility] [address] [place], [address] Hemoglobin (Bld) [Mass/Vol] 10.8 g/dL Low 13.0-16.5 [facility] Comment on above: Performed By: #### L 100.0500, L500.4050 ####[facility] [address] [place], [address] MCH (RBC) [Entitic mass] 29.3 pg Normal 27.0-32.0 [facility] Comment on above: Performed By: #### L 100.0500, L500.4050 ####[facility] [address] [place], [address] MCHC (RBC) [Mass/Vol] 32.5 g/dL Normal 32-36 [facility] Comment on above: Performed By: #### L 100.0500, L500.4050 ####[facility] [address] [place], [address] MCV (RBC) [Entitic vol] 90.2 fL Normal 80-94 [facility] Comment on above: Performed By: #### L 100.0500, L500.4050 ####[facility] [address] [place], [address] Platelet mean volume (Bld) [Entitic vol] 12.7 fL High 6.2-12.0 [facility] Comment on above: Performed By: #### L 100.0500, L500.4050 ####[facility] [address] [place], [address] Platelets (Bld) [#/Vol] 142 10*3/uL Low 150-450 [facility] Comment on above: Performed By: #### L 100.0500, L500.4050 ####[facility] [address] [place], [address] RBC (Bld) [#/Vol] 3.68 10*6/uL Low 4.6-6.2 [facility] Comment on above: Performed By: #### L 100.0500, L500.4050 ####[facility] [address] [place], [address] RDW SD 45.8 fl High 35.1-43.9 [facility] Comment on above: Performed By: #### L 100.0500, L500.4050 ####[facility] [address] [place], [address] WBC (Bld) [#/Vol] 14.6 10*3/uL High 4.4-11.0 [facility] Comment on above: Performed By: #### L 100.0500, L500.4050 ####[facility] [address] [place], [address] Cardiac rehabilitation repor tOrdered By: Natacha Fermin on 12-01-2024 Study report [facility] Comprehensive Metabolic Prof ilon 12-01-2024 Albumin [Mass/Vol] 3.7 g/dL Normal 3.4-4.8 [facility] Comment on above: Performed By: #### L 100.0500, L500.4050 ####[facility] [address] [place], [address] Albumin/Globulin [Mass ratio] 1.5 {ratio} Normal 0.9-2.4 [facility] Comment on above: Performed By: #### L 100.0500, L500.4050 ####[facility] [address] [place], [address] ALK PHOS 82 U/L Normal 40-129 [facility] Comment on above: Performed By: #### L 100.0500, L500.4050 ####[facility] [address] [place], [address] ALT [Catalytic activity/Vol] 77 U/L High <=46 [facility] Comment on above: Performed By: #### L 100.0500, L500.4050 ####[facility] [address] [place], [address] AST [Catalytic activity/Vol] 497 U/L High <=37 [facility] Comment on above: Performed By: #### L 100.0500, L500.4050 ####[facility] [address] [place], [address] Bilirubin [Mass/Vol] 1.07 mg/dL Normal 0.00-1.30 [facility] Comment on above: Performed By: #### L 100.0500, L500.4050 ####[facility] [address] [place], [address] BUN/CRE 14.2 RATIO Normal 10-20 [facility] Comment on above: Performed By: #### L 100.0500, L500.4050 ####[facility] [address] [place], [address] Calcium [Mass/Vol] 8.7 mg/dL Normal 7.6-11.0 [facility] Comment on above: Performed By: #### L 100.0500, L500.4050 ####[facility] [address] [place], [address] Chloride [Moles/Vol] 100 mmol/L Normal 98-108 [facility] Comment on above: Performed By: #### L 100.0500, L500.4050 ####[facility] [address] [place], [address] CO2 [Moles/Vol] 20.3 mmol/L Low 21.0-32.0 [facility] Comment on above: Performed By: #### L 100.0500, L500.4050 ####[facility] [address] [place], [address] Creatinine [Mass/Vol] 3.16 mg/dL High 0.70-1.20 [facility] Comment on above: Performed By: #### L 100.0500, L500.4050 ####[facility] [address] [place], [address] ECRCL 23.23 ml/min Low 50-250 [facility] Comment on above: Performed By: #### L 100.0500, L500.4050 ####[facility] [address] [place], [address] GAP 14 Normal 5-15 [facility] Comment on above: Performed By: #### L 100.0500, L500.4050 ####[facility] [address] [place], [address] GFR/1.73 sq M.predicted among non-blacks MDRD (S/P/Bld) [Vol rate/Area] 19 mL/min/{1.73_m2} Low >60 [facility] Comment on above: Result Comment: mL/m in/1.73m2 CKD-EPI Creatinine Equation (2020) Performed By: #### L 100.0500, L500.4050 ####[facility] [address] [place], [address] Globulin (S) [Mass/Vol] 2.4 g/dL Normal 2.2-4.2 [facility] Comment on above: Performed By: #### L 100.0500, L500.4050 ####[facility] [address] [place], [address] Glucose [Mass/Vol] 157 mg/dL High 70-99 [facility] Comment on above: Performed By: #### L 100.0500, L500.4050 ####[facility] [address] [place], [address] Potassium [Moles/Vol] 5.0 mmol/L Normal 3.3-5.1 [facility] Comment on above: Performed By: #### L 100.0500, L500.4050 ####[facility] [address] [place], [address] Sodium [Moles/Vol] 134 mmol/L Normal 133-145 [facility] Comment on above: Performed By: #### L 100.0500, L500.4050 ####[facility] [address] [place], [address] T PROT 6.0 g/dL Normal 5.9-8.4 [facility] Comment on above: Performed By: #### L 100.0500, L500.4050 ####[facility] [address] [place], [address] Urea nitrogen [Mass/Vol] 45 mg/dL High 4-19 [facility] Comment on above: Performed By: #### L 100.0500, L500.4050 ####[facility] [address] [place], [address] Echo Limited w/Contraston Echo Limited w/Contrast Normal [facility] Electrocardiogram reportOrde red By: Marcin Araujo on 12-01-2024 EKG study [facility] Work Phone: HH, Hemoglobin AND Hematocri ton 12-01-2024 Hematocrit (Bld) [Volume fraction] 32.7 % Low 40-54 [facility] Comment on above: Performed By: #### L 100.0600 ####[facility] [address] [place], [address] Hemoglobin (Bld) [Mass/Vol] 10.6 g/dL Low 13.0-16.5 [facility] Comment on above: Performed By: #### L 100.0600 ####[facility] [address] [place], [address] Limited echocardiogram repor tOrdered By: Lance Espino on 12-01-2024 Study report [facility] Other Phone: No Panel InformationOrdered By: Jose Hay on 12-01-2024 497 U/L High <38 [facility] STROKE Brain/Head without Co nton 12-01-2024 STROKE Brain/Head without Cont Normal [facility] Serum globulin measurementOr dered By: Jose Hay on 12-01-2024 Globulin (S) [Mass/Vol] 2.4 g/dL 2.2-4.2 [facility] Serum or plasma alanine guerrero otransferase (ALT) measurementOrdered By: Jose Hay on 12-01-2024 ALT [Catalytic activity/Vol] 77 U/L High <47 [facility] Serum or plasma albumin francine urement (mass/volume)Ordered By: Jose Hay on 12-01-2024 Albumin [Mass/Vol] 3.7 g/dL 3.4-4.8 [facility] Serum or plasma albumin/glob ulin mass ratioOrdered By: Jose Hay on 12-01-2024 Albumin/Globulin [Mass ratio] 1.5 {ratio} 0.9-2.4 [facility] Serum or plasma alkaline bell sphatase measurementOrdered By: Jose Hay on 12-01-2024 ALP [Catalytic activity/Vol] 82 U/L 40-129 [facility] Total proteinOrdered By: Emmanuel Hay on 12-01-2024 Protein [Mass/Vol] 6.0 g/dL 5.9-8.4 [facility] 12 Lead EKGon 11-30-2024 12 Lead EKG Normal [facility] ACT Activated Clotting Timeo n 11-30-2024 ACTk CLOT TIME 187 sec High 74-137 [facility] Comment on above: Performed By: #### L 9100.0100 ####[facility] [address] [place], [address] ACTk CLOT TIME 176 sec High 74-137 [facility] Comment on above: Performed By: #### L 9100.0100 ####[facility] [address] [place], [address] Absolute lymphocyte countOrd ered By: Isael Bernabe on 11-30-2024 Lymphocytes Auto (Unsp spec) [#/Vol] 1.93 10*3/uL 0.83-4.51 [facility] Activated partial thrombopla stin time (aPTT) in platelet poor plasma by coagulation aOrdered By: Isael Bernabe on 11-30-2024 aPTT Coag (PPP) [Time] 112.9 s High 24.1-36.2 [facility] Anion gap in Serum or Plasma Ordered By: Isael Bernabe on 11-30-2024 Anion gap [Moles/Vol] 19 mmol/L High 5-15 [facility] Automated lymphocyte count a s percentage of total leukocytesOrdered By: Isael Bernabe on 11-30-2024 Lymphocytes/100 WBC Auto (Unsp spec) 10.1 % Low 19-41 [facility] BUN/creatinine ratioOrdered By: Isael Bernabe on 11-30-2024 Urea nitrogen/Creatinine [Mass ratio] 14.4 mg/mg 10-20 [facility] Basic Metabolic Profile (BMP )on 11-30-2024 BUN/CRE 14.4 RATIO Normal - [facility] Comment on above: Performed By: #### L 300.4310, L501.4021, L300.3900, L100.0100, L500.2500 ####[facility] [address] [place], [address] Calcium [Mass/Vol] 9.5 mg/dL Normal 7.6-11.0 [facility] Comment on above: Performed By: #### L 300.4310, L501.4021, L300.3900, L100.0100, L500.2500 ####[facility] [address] [place], [address] Chloride [Moles/Vol] 98 mmol/L Normal 98-108 [facility] Comment on above: Performed By: #### L 300.4310, L501.4021, L300.3900, L100.0100, L500.2500 ####[facility] [address] [place], [address] CO2 [Moles/Vol] 18.3 mmol/L Low 21.0-32.0 [facility] Comment on above: Performed By: #### L 300.4310, L501.4021, L300.3900, L100.0100, L500.2500 ####[facility] [address] [place], [address] Creatinine [Mass/Vol] 3.10 mg/dL High 0.70-1.20 [facility] Comment on above: Performed By: #### L 300.4310, L501.4021, L300.3900, L100.0100, L500.2500 ####[facility] [address] [place], [address] GAP 19 High 5-15 [facility] Comment on above: Performed By: #### L 300.4310, L501.4021, L300.3900, L100.0100, L500.2500 ####[facility] [address] [place], [address] GFR/1.73 sq M.predicted among non-blacks MDRD (S/P/Bld) [Vol rate/Area] 20 mL/min/{1.73_m2} Low >60 [facility] Comment on above: Result Comment: mL/m in/1.73m2 CKD-EPI Creatinine Equation (2020) Performed By: #### L 300.4310, L501.4021, L300.3900, L100.0100, L500.2500 ####[facility] [address] [place], [address] Glucose [Mass/Vol] 328 mg/dL High 70-99 [facility] Comment on above: Performed By: #### L 300.4310, L501.4021, L300.3900, L100.0100, L500.2500 ####[facility] [address] [place], [address] Potassium [Moles/Vol] 4.4 mmol/L Normal 3.3-5.1 [facility] Comment on above: Performed By: #### L 300.4310, L501.4021, L300.3900, L100.0100, L500.2500 ####[facility] [address] [place], [address] Sodium [Moles/Vol] 135 mmol/L Normal 133-145 [facility] Comment on above: Performed By: #### L 300.4310, L501.4021, L300.3900, L100.0100, L500.2500 ####[facility] [address] [place], [address] Urea nitrogen [Mass/Vol] 45 mg/dL High 4-19 [facility] Comment on above: Performed By: #### L 300.4310, L501.4021, L300.3900, L100.0100, L500.2500 ####[facility] [address] [place], [address] Basophil percentageOrdered B y: Isael Bernabe on 11-30-2024 Basophils/100 WBC (Bld) 0.2 % 0-1 [facility] Bedside Glucoseon 11-30-2024 FINGERSTICK GLU 167 mg/dL High 74-106 [facility] Comment on above: Result Comment: WILDA BARROSO OF PATIENT CARE PER NURSING PROTOCOL Performed By: #### L 501.080 ####[facility] [address] [place], [address] CBC W/Diff, Automatedon - Absolute Lymph 1.93 X10 3/uL Normal 0.83-4.51 [facility] Comment on above: Performed By: #### L 300.4310, L501.4021, L300.3900, L100.0100, L500.2500 ####[facility] [address] [place], [address] Absolute Neut 15.5 X10 3/uL High 2.0-7.7 [facility] Comment on above: Performed By: #### L 300.4310, L501.4021, L300.3900, L100.0100, L500.2500 ####[facility] [address] [place], [address] Basophils/100 WBC (Bld) 0.2 % Normal 0-1 [facility] Comment on above: Performed By: #### L 300.4310, L501.4021, L300.3900, L100.0100, L500.2500 ####[facility] [address] [place], [address] Eosinophils/100 WBC (Bld) 0.4 % Normal 0-5 [facility] Comment on above: Performed By: #### L 300.4310, L501.4021, L300.3900, L100.0100, L500.2500 ####[facility] [address] [place], [address] Erythrocyte distribution width (RBC) [Ratio] 13.5 % Normal 11.6-14.6 [facility] Comment on above: Performed By: #### L 300.4310, L501.4021, L300.3900, L100.0100, L500.2500 ####[facility] [address] [place], [address] Hematocrit (Bld) [Volume fraction] 39.6 % Low 40-54 [facility] Comment on above: Performed By: #### L 300.4310, L501.4021, L300.3900, L100.0100, L500.2500 ####[facility] [address] [place], [address] Hemoglobin (Bld) [Mass/Vol] 12.5 g/dL Low 13.0-16.5 [facility] Comment on above: Performed By: #### L 300.4310, L501.4021, L300.3900, L100.0100, L500.2500 ####[facility] [address] [place], [address] IG% 0.700 Normal 0.0-0.9 [facility] Comment on above: Result Comment: IG% - Immature Granulocytes (promyelocytes, myelocytes andmetamyelocytes) > 1% indicates that a LEFT SHIFT is Present. Performed By: #### L 300.4310, L501.4021, L300.3900, L100.0100, L500.2500 ####[facility] [address] [place], [address] Lymphocytes/100 WBC (Bld) 10.1 % Low 19-41 [facility] Comment on above: Performed By: #### L 300.4310, L501.4021, L300.3900, L100.0100, L500.2500 ####[facility] [address] [place], [address] MCH (RBC) [Entitic mass] 29.3 pg Normal 27.0-32.0 [facility] Comment on above: Performed By: #### L 300.4310, L501.4021, L300.3900, L100.0100, L500.2500 ####[facility] [address] [place], [address] MCHC (RBC) [Mass/Vol] 31.6 g/dL Low 32-36 [facility] Comment on above: Performed By: #### L 300.4310, L501.4021, L300.3900, L100.0100, L500.2500 ####[facility] [address] [place], [address] MCV (RBC) [Entitic vol] 93.0 fL Normal 80-94 [facility] Comment on above: Performed By: #### L 300.4310, L501.4021, L300.3900, L100.0100, L500.2500 ####[facility] [address] [place], [address] Monocytes/100 WBC (Bld) 7.7 % Normal 0-10 [facility] Comment on above: Performed By: #### L 300.4310, L501.4021, L300.3900, L100.0100, L500.2500 ####[facility] [address] [place], [address] Neutrophils/100 WBC (Bld) 80.9 % High 47-70 [facility] Comment on above: Performed By: #### L 300.4310, L501.4021, L300.3900, L100.0100, L500.2500 ####[facility] [address] [place], [address] Nucleated RBC (Bld) [#/Vol] 0.1 10*3/uL Normal 0-5 [facility] Comment on above: Performed By: #### L 300.4310, L501.4021, L300.3900, L100.0100, L500.2500 ####[facility] [address] [place], [address] Platelet mean volume (Bld) [Entitic vol] 13.7 fL High 6.2-12.0 [facility] Comment on above: Performed By: #### L 300.4310, L501.4021, L300.3900, L100.0100, L500.2500 ####[facility] [address] [place], [address] Platelets (Bld) [#/Vol] 168 10*3/uL Normal 150-450 [facility] Comment on above: Performed By: #### L 300.4310, L501.4021, L300.3900, L100.0100, L500.2500 ####[facility] [address] [place], [address] RBC (Bld) [#/Vol] 4.26 10*6/uL Low 4.6-6.2 [facility] Comment on above: Performed By: #### L 300.4310, L501.4021, L300.3900, L100.0100, L500.2500 ####[facility] [address] [place], [address] RDW SD 45.9 fl High 35.1-43.9 [facility] Comment on above: Performed By: #### L 300.4310, L501.4021, L300.3900, L100.0100, L500.2500 ####[facility] [address] [place], [address] WBC (Bld) [#/Vol] 19.2 10*3/uL High 4.4-11.0 [facility] Comment on above: Performed By: #### L 300.4310, L501.4021, L300.3900, L100.0100, L500.2500 ####[facility] [address] [place], [address] CBC-Complete Blood Cnt No Di ffon 11-30-2024 HCT Normal 40-54 [facility] Comment on above: Result Comment: NO S PECIMEN COLLECTED Performed By: #### L 100.0500 ####[facility] [address] [place], [address] HGB Normal 13.0-16.5 [facility] Comment on above: Result Comment: NO S PECIMEN COLLECTED Performed By: #### L 100.0500 ####[facility] [address] [place], [address] MCH Normal 27.0-32.0 [facility] Comment on above: Result Comment: NO S PECIMEN COLLECTED Performed By: #### L 100.0500 ####[facility] [address] [place], [address] MCHC Normal 32-36 [facility] Comment on above: Result Comment: NO S PECIMEN COLLECTED Performed By: #### L 100.0500 ####[facility] [address] [place], [address] MCV Normal 80-94 [facility] Comment on above: Result Comment: NO S PECIMEN COLLECTED Performed By: #### L 100.0500 ####[facility] [address] [place], [address] PLT Normal 150-450 [facility] Comment on above: Result Comment: NO S PECIMEN COLLECTED Performed By: #### L 100.0500 ####[facility] [address] [place], [address] RBC Normal 4.6-6.2 [facility] Comment on above: Result Comment: NO S PECIMEN COLLECTED Performed By: #### L 100.0500 ####[facility] [address] [place], [address] RDW CV Normal 11.6-14.6 [facility] Comment on above: Result Comment: NO S PECIMEN COLLECTED Performed By: #### L 100.0500 ####[facility] [address] [place], [address] RDW SD Normal 35.1-43.9 [facility] Comment on above: Result Comment: NO S PECIMEN COLLECTED Performed By: #### L 100.0500 ####[facility] [address] [place], [place], [address] WBC Normal 4.4-11.0 [facility] Comment on above: Result Comment: NO S PECIMEN COLLECTED Performed By: #### L 100.0500 ####[facility] [address] [place], [place], [address] Carbon dioxide, total [Moles /volume] in Central venous bloodOrdered By: Isael Bernabe on 11-30-2024 CO2 [Moles/Vol] 18.3 mmol/L Low 21.0-32.0 [facility] Chest 1 View (Portable)on Chest 1 View (Portable) Normal [facility] Chloride assayOrdered By: Jaylen Bernabe on 11-30-2024 Chloride [Moles/Vol] 98 mmol/L 98-108 [facility] Consultation - Cardiologyon 11-30-2024 Consultation - Cardiology Normal [facility] Emergency Department Summary on 11-30-2024 Emergency Department Summary Normal [facility] Eosinophil percentageOrdered By: Isael Bernabe on 11-30-2024 Eosinophils/100 WBC (Bld) 0.4 % 0-5 [facility] Erythrocyte distribution wid th ratioOrdered By: Isael Bernabe on 11-30-2024 Erythrocyte distribution width (RBC) [Ratio] 13.5 % 11.6-14.6 [facility] Erythrocyte distribution wid th standard deviationOrdered By: Isael Bernabe on 11-30-2024 Erythrocyte distribution width (RBC) [Ratio] 45.9 fl High 35.1-43.9 [facility] Glomerular filtration rate ( GFR) estimation/1.73 sq m using serum, plasma, or whole bOrdered By: Isael Bernabe on 11-30-2024 GFR/1.73 sq M.predicted among non-blacks MDRD (S/P/Bld) [Vol rate/Area] 20 mL/min/{1.73_m2} Low >60 [facility] H AND P Exam - Hospitaliston 11-30-2024 H&P Exam - Hospitalist Normal [facility] Hematocrit Auto (Bld) [Volum e fraction]Ordered By: Isael Bernabe on 2025 Hematocrit (Bld) [Volume fraction] 39.6 % Low 40-54 [facility] Hemoglobin A1con 11-30-2024 HbA1c (Bld) [Mass fraction] 7.0 % High <=5.6 [facility] Comment on above: Result Comment: Norm al < 5.7 % Prediabetic 5.7 - 6.4 % Diabetic >or= 6.5 % Please note range changes. Performed By: #### L 501.9965 ####[facility] [address] [place], [place], [id number] Hemoglobin A1c percentageOrd ered By: Abraham Ridley on 11-30-2024 HbA1c (Bld) [Mass fraction] 7.0 % High <5.7 [facility] Hemoglobin measurementOrdere d By: Isael Bernabe on 11-30-2024 Hemoglobin (Bld) [Mass/Vol] 12.5 g/dL Low 13.0-16.5 [facility] Immature granulocytes/100 WB C Auto (Bld)Ordered By: Isael Bernabe on 11-30-2024 Immature granulocytes/100 WBC (Bld) 0.700 % 0.0-0.9 [facility] L501.4021on 11-30-2024 Trop T High Sen 61 ng/L Invalid Interpretation Code <=22 [facility] Comment on above: Result Comment: Crit ical Result(s) Called at: 1621 by: MOISE MEDINA??Results read back by same. Performed By: #### L 300.4310, L501.4021, L300.3900, L100.0100, L500.2500 ####[facility] [address] [place], [place], [id number] MCV (mean corpuscular volume ) determinationOrdered By: Isael Bernabe on 11-30-2024 MCV (RBC) [Entitic vol] 93.0 fL 80-94 [facility] MR/QUALITYon 11-30-2024 MR/QUALITY Normal [facility] Mean corpuscular hemoglobin (MCH) determinationOrdered By: Isael Bernabe on 11-30-2024 MCH (RBC) [Entitic mass] 29.3 pg 27.0-32.0 [facility] Monocyte percentageOrdered B y: Isael Alexjose on 11-30-2024 Monocytes/100 WBC (Bld) 7.7 % 0-10 [facility] Neutrophil percentageOrdered By: Isael Alexjose on 11-30-2024 Neutrophils/100 WBC (Bld) 80.9 % High 47-70 [facility] Partial Thromboplast Timeon 11-30-2024 aPTT Coag (Bld) [Time] 112.9 s Invalid Interpretation Code 24.1-36.2 [facility] Comment on above: Result Comment: CRIT ICAL VALUE CALLED TO CAITLIN ARASH11/30/24 1720 Krysta Turcios.RESULTS READ BACK BY SAME. Performed By: #### L 300.4310, L501.4021, L300.3900, L100.0100, L500.2500 ####[facility] [address] [place], [place], [address] Platelet countOrdered By: Jaylen Bernabe on 11-30-2024 Platelets (Bld) [#/Vol] 168 10*3/uL 150-450 [facility] Potassium measurement (mass/ volume)Ordered By: Isael Bernabe on 11-30-2024 Potassium (Unsp spec) [Mass/Vol] 4.4 mmol/L 3.3-5.1 [facility] Prothrombin Time w/INRon INR Coag (PPP) [Relative time] 1.3 {INR} Normal [facility] Comment on above: Performed By: #### L 300.4310, L501.4021, L300.3900, L100.0100, L500.2500 ####[facility] [address] [place], [place], [id number] PT Coag (PPP) [Time] 16.1 s High 11.7-14.9 [facility] Comment on above: Performed By: #### L 300.4310, L501.4021, L300.3900, L100.0100, L500.2500 ####[facility] [address] [place], [address] Prothrombin timeOrdered By: Isael Monteslee ann on 11-30-2024 PT Coag (PPP) [Time] 16.1 s High 11.7-14.9 [facility] RBC Auto (Bld) [#/Vol]Ordere d By: Isael Bernabe on 11-30-2024 RBC (Bld) [#/Vol] 4.26 10*6/uL Low 4.6-6.2 [facility] Serum creatinine measurement (mass/volume)Ordered By: Isael Bernabe on 11-30-2024 Creatinine [Mass/Vol] 3.10 mg/dL High 0.70-1.20 [facility] Serum glucose measurement (m ass/volume)Ordered By: Isael Bernabe on 11-30-2024 Glucose [Mass/Vol] 328 mg/dL High 70-99 [facility] Serum or plasma calcium francine urement (mass/volume)Ordered By: Isael Bernabe on 11-30-2024 Calcium [Mass/Vol] 9.5 mg/dL 7.6-11.0 [facility] Serum or plasma urea nitroge n measurement (mass/volume)Ordered By: Isael Bernabe on 11-30-2024 Urea nitrogen [Mass/Vol] 45 mg/dL High 4-19 [facility] Sodium levelOrdered By: Isael Bernabe on 11-30-2024 Sodium [Moles/Vol] 135 mmol/L 133-145 [facility] Troponin T HS 2 HRon 025 Trop T High Sen Normal <=22 [facility] Comment on above: Result Comment: Edy elled via OM: Ordered Performed By: #### L 499.0042 ####[facility] [address] [place], [place], [address] Troponin T HS 4 HRon 025 Trop T High Sen Normal <=22 [facility] Comment on above: Result Comment: Edy crews via OM: Ordered Performed By: #### L 499.0043 ####[facility] [address] [place], [address] Troponin T.cardiac [Mass/vol ume] in Serum or Plasma by High sensitivity methodOrdered By: Isael Bernabe on 11-30-2024 Troponin T.cardiac High sensitivity method [Mass/Vol] 61 ng/L High <22 [facility] White blood cell (WBC) count Ordered By: Isael Bernabe on 11-30-2024 WBC (Bld) [#/Vol] 19.2 10*3/uL High 4.4-11.0 [facility] ACT Activated Clotting Timeo n 11-28-2024 ACTk CLOT TIME 205 sec High 74-137 [facility] Comment on above: Performed By: #### L 9100.0100 ####[facility] [address] [place], [place], [id number] ACTk CLOT TIME 227 sec High 74-137 [facility] Comment on above: Performed By: #### L 9100.0100 ####[facility] [address] [place], [place], [id number] Anion gap in Serum or Plasma Ordered By: Jose Hay on 11-28-2024 Anion gap [Moles/Vol] 13 mmol/L 5-15 [facility] BUN/creatinine ratioOrdered By: Jose Hay on 11-28-2024 Urea nitrogen/Creatinine [Mass ratio] 15.2 mg/mg 10-20 [facility] Bilirubin, totalOrdered By: Jose Hay on 11-28-2024 Bilirubin [Mass/Vol] 0.78 mg/dL 0.00-1.30 [facility] CBC-Complete Blood Cnt No Di ffon 11-28-2024 Erythrocyte distribution width (RBC) [Ratio] 13.6 % Normal 11.6-14.6 [facility] Comment on above: Performed By: #### L 500.4050, L100.0500 ####[facility] [address] [place], [place], [id number] Hematocrit (Bld) [Volume fraction] 35.3 % Low 40-54 [facility] Comment on above: Performed By: #### L 500.4050, L100.0500 ####[facility] [address] [place], [address] Hemoglobin (Bld) [Mass/Vol] 11.3 g/dL Low 13.0-16.5 [facility] Comment on above: Performed By: #### L 500.4050, L100.0500 ####[facility] [address] [place], [address] MCH (RBC) [Entitic mass] 29.4 pg Normal 27.0-32.0 [facility] Comment on above: Performed By: #### L 500.4050, L100.0500 ####[facility] [address] [place], [address] MCHC (RBC) [Mass/Vol] 32.0 g/dL Normal 32-36 [facility] Comment on above: Performed By: #### L 500.4050, L100.0500 ####[facility] [address] [place], [address] MCV (RBC) [Entitic vol] 91.7 fL Normal 80-94 [facility] Comment on above: Performed By: #### L 500.4050, L100.0500 ####[facility] [address] [place], [address] Platelet mean volume (Bld) [Entitic vol] 12.6 fL High 6.2-12.0 [facility] Comment on above: Performed By: #### L 500.4050, L100.0500 ####[facility] [address] [place], [address] Platelets (Bld) [#/Vol] 108 10*3/uL Low 150-450 [facility] Comment on above: Performed By: #### L 500.4050, L100.0500 ####[facility] [address] [place], [address] RBC (Bld) [#/Vol] 3.85 10*6/uL Low 4.6-6.2 [facility] Comment on above: Performed By: #### L 500.4050, L100.0500 ####[facility] [address] [place], [address] RDW SD 46.1 fl High 35.1-43.9 [facility] Comment on above: Performed By: #### L 500.4050, L100.0500 ####[facility] [address] [place], [address] WBC (Bld) [#/Vol] 7.1 10*3/uL Normal 4.4-11.0 [facility] Comment on above: Performed By: #### L 500.4050, L100.0500 ####[facility] [address] [place], [address] Carbon dioxide, total [Moles /volume] in Central venous bloodOrdered By: Jose Hay on 11-28-2024 CO2 [Moles/Vol] 23.7 mmol/L 21.0-32.0 [facility] Chloride assayOrdered By: Harsh Hay on 11-28-2024 Chloride [Moles/Vol] 102 mmol/L 98-108 [facility] Comprehensive Metabolic Prof ilon 11-28-2024 Albumin [Mass/Vol] 3.8 g/dL Normal 3.4-4.8 [facility] Comment on above: Performed By: #### L 500.4050, L100.0500 ####[facility] [address] [place], [address] Albumin/Globulin [Mass ratio] 1.4 {ratio} Normal 0.9-2.4 [facility] Comment on above: Performed By: #### L 500.4050, L100.0500 ####[facility] [address] [place], [address] ALK PHOS 93 U/L Normal 40-129 [facility] Comment on above: Performed By: #### L 500.4050, L100.0500 ####[facility] [address] [place], [address] ALT [Catalytic activity/Vol] 27 U/L Normal <=46 [facility] Comment on above: Result Comment: Hemo lysis present, Results??could be affected.?? Performed By: #### L 500.4050, L100.0500 ####[facility] [address] [place], [address] AST [Catalytic activity/Vol] 33 U/L Normal <=37 [facility] Comment on above: Result Comment: Hemo lysis present, Results??could be affected.?? Performed By: #### L 500.4050, L100.0500 ####[facility] [address] [place], [address] Bilirubin [Mass/Vol] 0.78 mg/dL Normal 0.00-1.30 [facility] Comment on above: Performed By: #### L 500.4050, L100.0500 ####[facility] [address] [place], [address] BUN/CRE 15.2 RATIO Normal 10-20 [facility] Comment on above: Performed By: #### L 500.4050, L100.0500 ####[facility] [address] [place], [address] Calcium [Mass/Vol] 9.2 mg/dL Normal 7.6-11.0 [facility] Comment on above: Performed By: #### L 500.4050, L100.0500 ####[facility] [address] [place], [address] Chloride [Moles/Vol] 102 mmol/L Normal 98-108 [facility] Comment on above: Performed By: #### L 500.4050, L100.0500 ####[facility] [address] [place], [address] CO2 [Moles/Vol] 23.7 mmol/L Normal 21.0-32.0 [facility] Comment on above: Performed By: #### L 500.4050, L100.0500 ####[facility] [address] [place], [address] Creatinine [Mass/Vol] 1.93 mg/dL High 0.70-1.20 [facility] Comment on above: Performed By: #### L 500.4050, L100.0500 ####[facility] [address] [place], [address] ECRCL 37.66 ml/min Low 50-250 [facility] Comment on above: Performed By: #### L 500.4050, L100.0500 ####[facility] [address] [place], [address] GAP 13 Normal 5-15 [facility] Comment on above: Performed By: #### L 500.4050, L100.0500 ####[facility] [address] [place], [address] GFR/1.73 sq M.predicted among non-blacks MDRD (S/P/Bld) [Vol rate/Area] 35 mL/min/{1.73_m2} Low >60 [facility] Comment on above: Result Comment: mL/m in/1.73m2 CKD-EPI Creatinine Equation (2020) Performed By: #### L 500.4050, L100.0500 ####[facility] [address] [place], [address] Globulin (S) [Mass/Vol] 2.8 g/dL Normal 2.2-4.2 [facility] Comment on above: Performed By: #### L 500.4050, L100.0500 ####[facility] [address] [place], [address] Glucose [Mass/Vol] 130 mg/dL High 70-99 [facility] Comment on above: Performed By: #### L 500.4050, L100.0500 ####[facility] [address] [place], [address] Potassium [Moles/Vol] 4.4 mmol/L Normal 3.3-5.1 [facility] Comment on above: Result Comment: Hemo lysis present, Results??could be affected.?? Performed By: #### L 500.4050, L100.0500 ####[facility] [address] [place], [address] Sodium [Moles/Vol] 139 mmol/L Normal 133-145 [facility] Comment on above: Performed By: #### L 500.4050, L100.0500 ####[facility] [address] [place], [address] T PROT 6.6 g/dL Normal 5.9-8.4 [facility] Comment on above: Performed By: #### L 500.4050, L100.0500 ####[facility] [address] [place], [address] Urea nitrogen [Mass/Vol] 29 mg/dL High 4-19 [facility] Comment on above: Performed By: #### L 500.4050, L100.0500 ####[facility] [address] [place], [address] Erythrocyte distribution wid th ratioOrdered By: Jose Hay on 11-28-2024 Erythrocyte distribution width (RBC) [Ratio] 13.6 % 11.6-14.6 [facility] Erythrocyte distribution wid th standard deviationOrdered By: Jose Hay on 11-28-2024 Erythrocyte distribution width (RBC) [Ratio] 46.1 fl High 35.1-43.9 [facility] Glomerular filtration rate ( GFR) estimation/1.73 sq m using serum, plasma, or whole bOrdered By: Jose Hay on 11-28-2024 GFR/1.73 sq M.predicted among non-blacks MDRD (S/P/Bld) [Vol rate/Area] 35 mL/min/{1.73_m2} Low >60 [facility] Hematocrit Auto (Bld) [Volum e fraction]Ordered By: Jose Hay on 11-28-2024 Hematocrit (Bld) [Volume fraction] 35.3 % Low 40-54 [facility] Hemoglobin measurementOrdere d By: Jose Hay on 11-28-2024 Hemoglobin (Bld) [Mass/Vol] 11.3 g/dL Low 13.0-16.5 [facility] MCV (mean corpuscular volume ) determinationOrdered By: Jose Hay on 11-28-2024 MCV (RBC) [Entitic vol] 91.7 fL 80-94 [facility] Mean corpuscular hemoglobin (MCH) determinationOrdered By: Josejina Hay on 11-28-2024 MCH (RBC) [Entitic mass] 29.4 pg 27.0-32.0 [facility] No Panel InformationOrdered By: Jose Hay on 11-28-2024 33 U/L <38 [facility] Platelet countOrdered By: Harsh Hay on 11-28-2024 Platelets (Bld) [#/Vol] 108 10*3/uL Low 150-450 [facility] Potassium measurement (mass/ volume)Ordered By: Jose Hay on 11-28-2024 Potassium (Unsp spec) [Mass/Vol] 4.4 mmol/L 3.3-5.1 [facility] RBC Auto (Bld) [#/Vol]Ordere d By: Jose Hay on 11-28-2024 RBC (Bld) [#/Vol] 3.85 10*6/uL Low 4.6-6.2 [facility] Serum creatinine measurement (mass/volume)Ordered By: Jose Hay on 11-28-2024 Creatinine [Mass/Vol] 1.93 mg/dL High 0.70-1.20 [facility] Serum globulin measurementOr dered By: Jose Hay on 11-28-2024 Globulin (S) [Mass/Vol] 2.8 g/dL 2.2-4.2 [facility] Serum glucose measurement (m ass/volume)Ordered By: Jose Hay on 11-28-2024 Glucose [Mass/Vol] 130 mg/dL High 70-99 [facility] Serum or plasma alanine guerrero otransferase (ALT) measurementOrdered By: Jose Hay on 11-28-2024 ALT [Catalytic activity/Vol] 27 U/L <47 [facility] Serum or plasma albumin francine urement (mass/volume)Ordered By: Jose Hay on 11-28-2024 Albumin [Mass/Vol] 3.8 g/dL 3.4-4.8 [facility] Serum or plasma albumin/glob ulin mass ratioOrdered By: Jose Hay on 11-28-2024 Albumin/Globulin [Mass ratio] 1.4 {ratio} 0.9-2.4 [facility] Serum or plasma alkaline bell sphatase measurementOrdered By: Jose Hay on 11-28-2024 ALP [Catalytic activity/Vol] 93 U/L 40-129 [facility] Serum or plasma calcium francine urement (mass/volume)Ordered By: Jose Hay on 11-28-2024 Calcium [Mass/Vol] 9.2 mg/dL 7.6-11.0 [facility] Serum or plasma urea nitroge n measurement (mass/volume)Ordered By: Jose Hay on 11-28-2024 Urea nitrogen [Mass/Vol] 29 mg/dL High 4-19 [facility] Sodium levelOrdered By: Ernst Hay on 11-28-2024 Sodium [Moles/Vol] 139 mmol/L 133-145 [facility] Total proteinOrdered By: Emmanuel Hay on 11-28-2024 Protein [Mass/Vol] 6.6 g/dL 5.9-8.4 [facility] White blood cell (WBC) count Ordered By: Jose Hay on 11-28-2024 WBC (Bld) [#/Vol] 7.1 10*3/uL 4.4-11.0 [facility] 12 Lead EKGon 11-27-2024 12 Lead EKG Normal [facility] Cardiac rehabilitation repor tOrdered By: Karrie Arceo on 11-27-2024 Study report [facility] Discharge Instructionon 07-2 Discharge Instruction Normal [facility] 12 Lead EKGon 11-26-2024 12 Lead EKG Normal [facility] Absolute lymphocyte countOrd ered By: Isael Bernabe on 11-26-2024 Lymphocytes Auto (Unsp spec) [#/Vol] 1.53 10*3/uL 0.83-4.51 [facility] Anion gap in Serum or Plasma Ordered By: Isael Bernabe on 11-26-2024 Anion gap [Moles/Vol] 15 mmol/L 5-15 [facility] Automated lymphocyte count a s percentage of total leukocytesOrdered By: Isael Bernabe on 11-26-2024 Lymphocytes/100 WBC Auto (Unsp spec) 16.7 % Low 19-41 [facility] BUN/creatinine ratioOrdered By: Isael Bernabe on 11-26-2024 Urea nitrogen/Creatinine [Mass ratio] 18.2 mg/mg 10- [facility] Basic Metabolic Profile (BMP )on 11-26-2024 BUN/CRE 18.2 RATIO Normal - [facility] Comment on above: Performed By: #### L 500.2500, L100.0100, L501.4021, L503.7505 ####[facility] [address] [place], [address] Calcium [Mass/Vol] 9.2 mg/dL Normal 7.6-11.0 [facility] Comment on above: Performed By: #### L 500.2500, L100.0100, L501.4021, L503.7505 ####[facility] [address] [place], [address] Chloride [Moles/Vol] 100 mmol/L Normal 98-108 [facility] Comment on above: Performed By: #### L 500.2500, L100.0100, L501.4021, L503.7505 ####[facility] [address] [place], [address] CO2 [Moles/Vol] 21.5 mmol/L Normal 21.0-32.0 [facility] Comment on above: Performed By: #### L 500.2500, L100.0100, L501.4021, L503.7505 ####[facility] [address] [place], [address] Creatinine [Mass/Vol] 2.34 mg/dL High 0.70-1.20 [facility] Comment on above: Performed By: #### L 500.2500, L100.0100, L501.4021, L503.7505 ####[facility] [address] [place], [address] ECRCL 31.97 ml/min Low 50-250 [facility] Comment on above: Performed By: #### L 500.2500, L100.0100, L501.4021, L503.7505 ####[facility] [address] [place], [address] GAP 15 Normal 5-15 [facility] Comment on above: Performed By: #### L 500.2500, L100.0100, L501.4021, L503.7505 ####[facility] [address] [place], [address] GFR/1.73 sq M.predicted among non-blacks MDRD (S/P/Bld) [Vol rate/Area] 28 mL/min/{1.73_m2} Low >60 [facility] Comment on above: Result Comment: mL/m in/1.73m2 CKD-EPI Creatinine Equation (2020) Performed By: #### L 500.2500, L100.0100, L501.4021, L503.7505 ####[facility] [address] [place], [address] Glucose [Mass/Vol] 275 mg/dL High 70-99 [facility] Comment on above: Performed By: #### L 500.2500, L100.0100, L501.4021, L503.7505 ####[facility] [address] [place], [address] Potassium [Moles/Vol] 4.4 mmol/L Normal 3.3-5.1 [facility] Comment on above: Performed By: #### L 500.2500, L100.0100, L501.4021, L503.7505 ####[facility] [address] [place], [address] Sodium [Moles/Vol] 137 mmol/L Normal 133-145 [facility] Comment on above: Performed By: #### L 500.2500, L100.0100, L501.4021, L503.7505 ####[facility] [address] [place], [address] Urea nitrogen [Mass/Vol] 43 mg/dL High 4-19 [facility] Comment on above: Performed By: #### L 500.2500, L100.0100, L501.4021, L503.7505 ####[facility] [address] [place], [address] Basophil percentageOrdered B y: Isael Bernabe on 11-26-2024 Basophils/100 WBC (Bld) 0.3 % 0-1 [facility] Brain/Head without Contrasto n 11-26-2024 Brain/Head without Contrast Normal [facility] CBC W/Diff, Automatedon - Absolute Lymph 1.53 X10 3/uL Normal 0.83-4.51 [facility] Comment on above: Performed By: #### L 500.2500, L100.0100, L501.4021, L503.7505 ####[facility] [address] [place], [address] Absolute Neut 6.6 X10 3/uL Normal 2.0-7.7 [facility] Comment on above: Performed By: #### L 500.2500, L100.0100, L501.4021, L503.7505 ####[facility] [address] [place], [address] Basophils/100 WBC (Bld) 0.3 % Normal 0-1 [facility] Comment on above: Performed By: #### L 500.2500, L100.0100, L501.4021, L503.7505 ####[facility] [address] [place], [address] Eosinophils/100 WBC (Bld) 1.3 % Normal 0-5 [facility] Comment on above: Performed By: #### L 500.2500, L100.0100, L501.4021, L503.7505 ####[facility] [address] [place], [address] Erythrocyte distribution width (RBC) [Ratio] 13.9 % Normal 11.6-14.6 [facility] Comment on above: Performed By: #### L 500.2500, L100.0100, L501.4021, L503.7505 ####[facility] [address] [place], [address] Hematocrit (Bld) [Volume fraction] 36.7 % Low 40-54 [facility] Comment on above: Performed By: #### L 500.2500, L100.0100, L501.4021, L503.7505 ####[facility] [address] [place], [address] Hemoglobin (Bld) [Mass/Vol] 11.8 g/dL Low 13.0-16.5 [facility] Comment on above: Performed By: #### L 500.2500, L100.0100, L501.4021, L503.7505 ####[facility] [address] [place], [address] IG% 0.400 Normal 0.0-0.9 [facility] Comment on above: Result Comment: IG% - Immature Granulocytes (promyelocytes, myelocytes andmetamyelocytes) > 1% indicates that a LEFT SHIFT is Present. Performed By: #### L 500.2500, L100.0100, L501.4021, L503.7505 ####[facility] [address] [place], [address] Lymphocytes/100 WBC (Bld) 16.7 % Low 19-41 [facility] Comment on above: Performed By: #### L 500.2500, L100.0100, L501.4021, L503.7505 ####[facility] [address] [place], [address] MCH (RBC) [Entitic mass] 29.2 pg Normal 27.0-32.0 [facility] Comment on above: Performed By: #### L 500.2500, L100.0100, L501.4021, L503.7505 ####[facility] [address] [place], [address] MCHC (RBC) [Mass/Vol] 32.2 g/dL Normal 32-36 [facility] Comment on above: Performed By: #### L 500.2500, L100.0100, L501.4021, L503.7505 ####[facility] [address] [place], [address] MCV (RBC) [Entitic vol] 90.8 fL Normal 80-94 [facility] Comment on above: Performed By: #### L 500.2500, L100.0100, L501.4021, L503.7505 ####[facility] [address] [place], [address] Monocytes/100 WBC (Bld) 9.5 % Normal 0-10 [facility] Comment on above: Performed By: #### L 500.2500, L100.0100, L501.4021, L503.7505 ####[facility] [address] [place], [address] Neutrophils/100 WBC (Bld) 71.8 % High 47-70 [facility] Comment on above: Performed By: #### L 500.2500, L100.0100, L501.4021, L503.7505 ####[facility] [address] [place], [address] Nucleated RBC (Bld) [#/Vol] 0 10*3/uL Normal 0-5 [facility] Comment on above: Performed By: #### L 500.2500, L100.0100, L501.4021, L503.7505 ####[facility] [address] [place], [address] Platelet mean volume (Bld) [Entitic vol] 12.8 fL High 6.2-12.0 [facility] Comment on above: Performed By: #### L 500.2500, L100.0100, L501.4021, L503.7505 ####[facility] [address] [place], [address] Platelets (Bld) [#/Vol] 132 10*3/uL Low 150-450 [facility] Comment on above: Performed By: #### L 500.2500, L100.0100, L501.4021, L503.7505 ####[facility] [address] [place], [address] RBC (Bld) [#/Vol] 4.04 10*6/uL Low 4.6-6.2 [facility] Comment on above: Performed By: #### L 500.2500, L100.0100, L501.4021, L503.7505 ####[facility] [address] [place], [address] RDW SD 46.6 fl High 35.1-43.9 [facility] Comment on above: Performed By: #### L 500.2500, L100.0100, L501.4021, L503.7505 ####[facility] [address] [place], [address] WBC (Bld) [#/Vol] 9.2 10*3/uL Normal 4.4-11.0 [facility] Comment on above: Performed By: #### L 500.2500, L100.0100, L501.4021, L503.7505 ####[facility] [address] [place], [address] Carbon dioxide, total [Moles /volume] in Central venous bloodOrdered By: Isael Bernabe on 11-26-2024 CO2 [Moles/Vol] 21.5 mmol/L 21.0-32.0 [facility] Chest 1 View (Portable)on Chest 1 View (Portable) Normal [facility] Chloride assayOrdered By: Jaylen Bernabe on 11-26-2024 Chloride [Moles/Vol] 100 mmol/L 98-108 [facility] Emergency Department Summary on 11-26-2024 Emergency Department Summary Normal [facility] Eosinophil percentageOrdered By: Isael Bernabe on 11-26-2024 Eosinophils/100 WBC (Bld) 1.3 % 0-5 [facility] Erythrocyte distribution wid th ratioOrdered By: Isael Bernabe on 11-26-2024 Erythrocyte distribution width (RBC) [Ratio] 13.9 % 11.6-14.6 [facility] Erythrocyte distribution wid th standard deviationOrdered By: Isael Bernabe on 11-26-2024 Erythrocyte distribution width (RBC) [Ratio] 46.6 fl High 35.1-43.9 [facility] Glomerular filtration rate ( GFR) estimation/1.73 sq m using serum, plasma, or whole bOrdered By: Isael Bernabe on 11-26-2024 GFR/1.73 sq M.predicted among non-blacks MDRD (S/P/Bld) [Vol rate/Area] 28 mL/min/{1.73_m2} Low >60 [facility] Hand Min 3 Viewson Hand Min 3 Views Normal [facility] Hematocrit Auto (Bld) [Volum e fraction]Ordered By: Isael Bernabe on 11-26-2024 Hematocrit (Bld) [Volume fraction] 36.7 % Low 40-54 [facility] Hemoglobin measurementOrdere d By: sIael Bernabe on 11-26-2024 Hemoglobin (Bld) [Mass/Vol] 11.8 g/dL Low 13.0-16.5 [facility] Immature granulocytes/100 WB C Auto (Bld)Ordered By: Isael Bernabe on 11-26-2024 Immature granulocytes/100 WBC (Bld) 0.400 % 0.0-0.9 [facility] Knee 4 or More Viewson 11-26 Knee 4 or More Views Normal [facility] Knee 4 or More Views Normal [facility] L501.4021on 11-26-2024 Trop T High Sen 18 ng/L Normal <=22 [facility] Comment on above: Performed By: #### L 500.2500, L100.0100, L501.4021, L503.7505 ####[facility] [address] [place], [address] MCV (mean corpuscular volume ) determinationOrdered By: Isael Bernabe on 11-26-2024 MCV (RBC) [Entitic vol] 90.8 fL 80-94 [facility] Mean corpuscular hemoglobin (MCH) determinationOrdered By: Isael Bernabe on 11-26-2024 MCH (RBC) [Entitic mass] 29.2 pg 27.0-32.0 [facility] Monocyte percentageOrdered B y: Isael Bernabe on 11-26-2024 Monocytes/100 WBC (Bld) 9.5 % 0-10 [facility] Natriuretic peptide.B prohor efrem N-Terminal [Mass/volume] in Serum or PlasmaOrdered By: Isael Bernabe on 11-26-2024 Natriuretic peptide.B prohormone N-Terminal [Mass/Vol] 162 pg/mL <1800 [facility] Neutrophil percentageOrdered By: Isael Bernabe on 11-26-2024 Neutrophils/100 WBC (Bld) 71.8 % High 47-70 [facility] Platelet countOrdered By: Jaylen Bernabe on 11-26-2024 Platelets (Bld) [#/Vol] 132 10*3/uL Low 150-450 [facility] Potassium measurement (mass/ volume)Ordered By: Isael Bernabe on 11-26-2024 Potassium (Unsp spec) [Mass/Vol] 4.4 mmol/L 3.3-5.1 [facility] Pro- Brain NATRIURETIC PEPTI Sharon 11-26-2024 Natriuretic peptide B (Bld) [Mass/Vol] 162 pg/mL Normal <=1800 [facility] Comment on above: Result Comment: Hear t Failure Unlikely: < 300 pg/mLHeart Failure Likely< 50 Years: > 450 pg/mL50-75 Years: > 900 pg/mL>75 Years: > 1800 pg/mL Performed By: #### L 500.2500, L100.0100, L501.4021, L503.7505 ####[facility] [address] [place], [address] RBC Auto (Bld) [#/Vol]Ordere d By: Isael Bernabe on 11-26-2024 RBC (Bld) [#/Vol] 4.04 10*6/uL Low 4.6-6.2 [facility] Serum creatinine measurement (mass/volume)Ordered By: Isael Bernabe on 11-26-2024 Creatinine [Mass/Vol] 2.34 mg/dL High 0.70-1.20 [facility] Serum glucose measurement (m ass/volume)Ordered By: Isael Bernabe on 11-26-2024 Glucose [Mass/Vol] 275 mg/dL High 70-99 [facility] Serum or plasma calcium francine urement (mass/volume)Ordered By: Isael Bernabe on 11-26-2024 Calcium [Mass/Vol] 9.2 mg/dL 7.6-11.0 [facility] Serum or plasma urea nitroge n measurement (mass/volume)Ordered By: Isael Bernabe on 11-26-2024 Urea nitrogen [Mass/Vol] 43 mg/dL High 4-19 [facility] Sodium levelOrdered By: Isael Bernabe on 11-26-2024 Sodium [Moles/Vol] 137 mmol/L 133-145 [facility] Spine Cervical without Contr ason 11-26-2024 Spine Cervical without Contras Normal [facility] Troponin T HS 2 HRon 025 Trop T High Sen 20 ng/L Normal <=22 [facility] Comment on above: Performed By: #### L 499.0042 ####[facility] [address] [place], [place], [id number] Troponin T HS 4 HRon 025 Trop T High Sen Normal <=22 [facility] Comment on above: Result Comment: Canc elled via OM: Order cancelled - Patient discharged Performed By: #### L 499.0043 ####[facility] [address] [place], [place], [address] Troponin T.cardiac [Mass/vol ume] in Serum or Plasma by High sensitivity methodOrdered By: Isael Bernabe on 11-26-2024 Troponin T.cardiac High sensitivity method [Mass/Vol] 20 ng/L <22 [facility] Troponin T.cardiac High sensitivity method [Mass/Vol] 18 ng/L <22 [facility] White blood cell (WBC) count Ordered By: Isael Bernabe on 11-26-2024 WBC (Bld) [#/Vol] 9.2 10*3/uL 4.4-11.0 [facility] Absolute lymphocyte countOrd ered By: Gustabo Pérez on 11-22-2024 Lymphocytes Auto (Unsp spec) [#/Vol] 1.37 10*3/uL 0.83-4.51 [facility] Anion gap in Serum or Plasma Ordered By: Gustabo Pérez on 11-22-2024 Anion gap [Moles/Vol] 15 mmol/L 5-15 [facility] Automated lymphocyte count a s percentage of total leukocytesOrdered By: Gustabo Pérez on 11-22-2024 Lymphocytes/100 WBC Auto (Unsp spec) 16.1 % Low 19-41 [facility] BUN/creatinine ratioOrdered By: Gustabo Pérez on 11-22-2024 Urea nitrogen/Creatinine [Mass ratio] 15.6 mg/mg 10-20 [facility] Basic Metabolic Profile (BMP )on 11-22-2024 BUN/CRE 15.6 RATIO Normal 10-20 [facility] Comment on above: Performed By: #### L 503.7505, L100.0100, L500.2500 ####[facility] [address] [place], [address] Calcium [Mass/Vol] 9.1 mg/dL Normal 7.6-11.0 [facility] Comment on above: Performed By: #### L 503.7505, L100.0100, L500.2500 ####[facility] [address] [place], [address] Chloride [Moles/Vol] 102 mmol/L Normal 98-108 [facility] Comment on above: Performed By: #### L 503.7505, L100.0100, L500.2500 ####[facility] [address] [place], [address] CO2 [Moles/Vol] 21.6 mmol/L Normal 21.0-32.0 [facility] Comment on above: Performed By: #### L 503.7505, L100.0100, L500.2500 ####[facility] [address] [place], [address] Creatinine [Mass/Vol] 2.51 mg/dL High 0.70-1.20 [facility] Comment on above: Performed By: #### L 503.7505, L100.0100, L500.2500 ####[facility] [address] [place], [address] GAP 15 Normal 5-15 [facility] Comment on above: Performed By: #### L 503.7505, L100.0100, L500.2500 ####[facility] [address] [place], [address] GFR/1.73 sq M.predicted among non-blacks MDRD (S/P/Bld) [Vol rate/Area] 25 mL/min/{1.73_m2} Low >60 [facility] Comment on above: Result Comment: mL/m in/1.73m2 CKD-EPI Creatinine Equation (2020) Performed By: #### L 503.7505, L100.0100, L500.2500 ####[facility] [address] [place], [address] Glucose [Mass/Vol] 262 mg/dL High 70-99 [facility] Comment on above: Performed By: #### L 503.7505, L100.0100, L500.2500 ####[facility] [address] [place], [address] Potassium [Moles/Vol] 4.8 mmol/L Normal 3.3-5.1 [facility] Comment on above: Performed By: #### L 503.7505, L100.0100, L500.2500 ####[facility] [address] [place], [address] Sodium [Moles/Vol] 139 mmol/L Normal 133-145 [facility] Comment on above: Performed By: #### L 503.7505, L100.0100, L500.2500 ####[facility] [address] [place], [address] Urea nitrogen [Mass/Vol] 39 mg/dL High 4-19 [facility] Comment on above: Performed By: #### L 503.7505, L100.0100, L500.2500 ####[facility] [address] [place], [address] Basophil percentageOrdered B y: Gustabo Pérez on 11-22-2024 Basophils/100 WBC (Bld) 0.4 % 0-1 [facility] CBC W/Diff, Automatedon 11-01 Absolute Lymph 1.37 X10 3/uL Normal 0.83-4.51 [facility] Comment on above: Performed By: #### L 503.7505, L100.0100, L500.2500 ####[facility] [address] [place], [address] Absolute Neut 6.2 X10 3/uL Normal 2.0-7.7 [facility] Comment on above: Performed By: #### L 503.7505, L100.0100, L500.2500 ####[facility] [address] [place], [address] Basophils/100 WBC (Bld) 0.4 % Normal 0-1 [facility] Comment on above: Performed By: #### L 503.7505, L100.0100, L500.2500 ####[facility] [address] [place], [address] Eosinophils/100 WBC (Bld) 1.5 % Normal 0-5 [facility] Comment on above: Performed By: #### L 503.7505, L100.0100, L500.2500 ####[facility] [address] [place], [address] Erythrocyte distribution width (RBC) [Ratio] 13.8 % Normal 11.6-14.6 [facility] Comment on above: Performed By: #### L 503.7505, L100.0100, L500.2500 ####[facility] [address] [place], [address] Hematocrit (Bld) [Volume fraction] 36.5 % Low 40-54 [facility] Comment on above: Performed By: #### L 503.7505, L100.0100, L500.2500 ####[facility] [address] [place], [address] Hemoglobin (Bld) [Mass/Vol] 11.8 g/dL Low 13.0-16.5 [facility] Comment on above: Performed By: #### L 503.7505, L100.0100, L500.2500 ####[facility] [address] [place], [address] IG% 0.500 Normal 0.0-0.9 [facility] Comment on above: Result Comment: IG% - Immature Granulocytes (promyelocytes, myelocytes andmetamyelocytes) > 1% indicates that a LEFT SHIFT is Present. Performed By: #### L 503.7505, L100.0100, L500.2500 ####[facility] [address] [place], [address] Lymphocytes/100 WBC (Bld) 16.1 % Low 19-41 [facility] Comment on above: Performed By: #### L 503.7505, L100.0100, L500.2500 ####[facility] [address] [place], [address] MCH (RBC) [Entitic mass] 29.6 pg Normal 27.0-32.0 [facility] Comment on above: Performed By: #### L 503.7505, L100.0100, L500.2500 ####[facility] [address] [place], [address] MCHC (RBC) [Mass/Vol] 32.3 g/dL Normal 32-36 [facility] Comment on above: Performed By: #### L 503.7505, L100.0100, L500.2500 ####[facility] [address] [place], [address] MCV (RBC) [Entitic vol] 91.7 fL Normal 80-94 [facility] Comment on above: Performed By: #### L 503.7505, L100.0100, L500.2500 ####[facility] [address] [place], [address] Monocytes/100 WBC (Bld) 9.0 % Normal 0-10 [facility] Comment on above: Performed By: #### L 503.7505, L100.0100, L500.2500 ####[facility] [address] [place], [address] Neutrophils/100 WBC (Bld) 72.5 % High 47-70 [facility] Comment on above: Performed By: #### L 503.7505, L100.0100, L500.2500 ####[facility] [address] [place], [address] Nucleated RBC (Bld) [#/Vol] 0 10*3/uL Normal 0-5 [facility] Comment on above: Performed By: #### L 503.7505, L100.0100, L500.2500 ####[facility] [address] [place], [address] Platelet mean volume (Bld) [Entitic vol] 13.0 fL High 6.2-12.0 [facility] Comment on above: Performed By: #### L 503.7505, L100.0100, L500.2500 ####[facility] [address] [place], [address] Platelets (Bld) [#/Vol] 148 10*3/uL Low 150-450 [facility] Comment on above: Performed By: #### L 503.7505, L100.0100, L500.2500 ####[facility] [address] [place], [address] RBC (Bld) [#/Vol] 3.98 10*6/uL Low 4.6-6.2 [facility] Comment on above: Performed By: #### L 503.7505, L100.0100, L500.2500 ####[facility] [address] [place], [address] RDW SD 47.0 fl High 35.1-43.9 [facility] Comment on above: Performed By: #### L 503.7505, L100.0100, L500.2500 ####[facility] [address] [place], [address] WBC (Bld) [#/Vol] 8.5 10*3/uL Normal 4.4-11.0 [facility] Comment on above: Performed By: #### L 503.7505, L100.0100, L500.2500 ####[facility] [address] [place], [address] Carbon dioxide, total [Moles /volume] in Central venous bloodOrdered By: Gustabo Pérez on 11-22-2024 CO2 [Moles/Vol] 21.6 mmol/L 21.0-32.0 [facility] Cardiology Visit Reporton Cardiology Visit Report Normal [facility] Chest PA and Lateralon 11-22 Chest PA and Lateral Normal [facility] Chloride assayOrdered By: Lydia Pérez on 11-22-2024 Chloride [Moles/Vol] 102 mmol/L 98-108 [facility] Eosinophil percentageOrdered By: Gustabo Pérez on 11-22-2024 Eosinophils/100 WBC (Bld) 1.5 % 0-5 [facility] Erythrocyte distribution wid th ratioOrdered By: Gustabo Pérez on 11-22-2024 Erythrocyte distribution width (RBC) [Ratio] 13.8 % 11.6-14.6 [facility] Erythrocyte distribution wid th standard deviationOrdered By: Gustabo Pérez on 11-22-2024 Erythrocyte distribution width (RBC) [Ratio] 47.0 fl High 35.1-43.9 [facility] Glomerular filtration rate ( GFR) estimation/1.73 sq m using serum, plasma, or whole bOrdered By: Gustabo Pérez on 11-22-2024 GFR/1.73 sq M.predicted among non-blacks MDRD (S/P/Bld) [Vol rate/Area] 25 mL/min/{1.73_m2} Low >60 [facility] Hematocrit Auto (Bld) [Volum e fraction]Ordered By: Gustabo Pérez on 11-22-2024 Hematocrit (Bld) [Volume fraction] 36.5 % Low 40-54 [facility] Hemoglobin measurementOrdere d By: Gustabo Pérez on 11-22-2024 Hemoglobin (Bld) [Mass/Vol] 11.8 g/dL Low 13.0-16.5 [facility] Immature granulocytes/100 WB C Auto (Bld)Ordered By: Gustabo Pérez on 11-22-2024 Immature granulocytes/100 WBC (Bld) 0.500 % 0.0-0.9 [facility] L503.7505on 11-22-2024 Natriuretic peptide B (Bld) [Mass/Vol] 188 pg/mL Normal <=1800 [facility] Comment on above: Result Comment: Hear t Failure Unlikely: < 300 pg/mLHeart Failure Likely< 50 Years: > 450 pg/mL50-75 Years: > 900 pg/mL>75 Years: > 1800 pg/mL Performed By: #### L 503.7505, L100.0100, L500.2500 ####[facility] [address] [place], [address] MCV (mean corpuscular volume ) determinationOrdered By: Gustabo Pérez on 11-22-2024 MCV (RBC) [Entitic vol] 91.7 fL 80-94 [facility] Mean corpuscular hemoglobin (MCH) determinationOrdered By: Gustabo Pérez on 11-22-2024 MCH (RBC) [Entitic mass] 29.6 pg 27.0-32.0 [facility] Monocyte percentageOrdered B y: Gustabo Pérez on 11-22-2024 Monocytes/100 WBC (Bld) 9.0 % 0-10 [facility] Natriuretic peptide.B prohor efrem N-Terminal [Mass/volume] in Serum or PlasmaOrdered By: Gustabo Pérez on 11-22-2024 Natriuretic peptide.B prohormone N-Terminal [Mass/Vol] 188 pg/mL <1800 [facility] Neutrophil percentageOrdered By: Gustabo Pérez on 11-22-2024 Neutrophils/100 WBC (Bld) 72.5 % High 47-70 [facility] Platelet countOrdered By: Lydia Pérez on 11-22-2024 Platelets (Bld) [#/Vol] 148 10*3/uL Low 150-450 [facility] Potassium measurement (mass/ volume)Ordered By: Gustabo Pérez on 11-22-2024 Potassium (Unsp spec) [Mass/Vol] 4.8 mmol/L 3.3-5.1 [facility] RBC Auto (Bld) [#/Vol]Ordere d By: Gustabo Pérez on 11-22-2024 RBC (Bld) [#/Vol] 3.98 10*6/uL Low 4.6-6.2 [facility] Serum creatinine measurement (mass/volume)Ordered By: Gustabo Pérez on 11-22-2024 Creatinine [Mass/Vol] 2.51 mg/dL High 0.70-1.20 [facility] Serum glucose measurement (m ass/volume)Ordered By: Gustabo Pérez on 11-22-2024 Glucose [Mass/Vol] 262 mg/dL High 70-99 [facility] Serum or plasma calcium francine urement (mass/volume)Ordered By: Gustabo Pérez on 11-22-2024 Calcium [Mass/Vol] 9.1 mg/dL 7.6-11.0 [facility] Serum or plasma urea nitroge n measurement (mass/volume)Ordered By: Gustabo Pérez on 11-22-2024 Urea nitrogen [Mass/Vol] 39 mg/dL High 4-19 [facility] Sodium levelOrdered By: Gustabo Pérez on 11-22-2024 Sodium [Moles/Vol] 139 mmol/L 133-145 [facility] White blood cell (WBC) count Ordered By: Gustabo Pérez on 11-22-2024 WBC (Bld) [#/Vol] 8.5 10*3/uL 4.4-11.0 [facility] Shoulder min 2 Viewson 11-20 Shoulder min 2 Views Normal [facility] Cardiovascular stress test r eportOrdered By: Jose Hay on 11-13-2024 Study report [facility] Cardiovascular Services [address] [place] [address] MR#: [id number] Acct: [id number] Name: GERRY RICO Rep #: [id number] : 1945 79 From: Jose Hay MD Primary Care: Dr. 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 This note was generated with SandLinksation software. It may contain incorrectwords, spelling, and punctuation that were not noted in checking the note beforesigning. [id number] Date _ Jose Hay MD CC: DIVERSIFIED CROPS II FARMWORKERAgnieszka Pérez; Dr. Marycarmen Rodriguez, DO ~ Date Dictated: 11/13/241536 Date Transcribed: 11/13/241536 [employer] Teacher: HARSH Signed [facility] Work Phone: Stress Reporton 11-13-2024 Stress Report Normal [facility] Echo Complete W/ Contraston 11-10-2024 Echo Complete W/ Contrast Normal [facility] Echocardiogram study reportO rdered By: Lance Rodriguze on 11-10-2024 Study report [facility] [address] [place] [address] Echo Complete W/ Contrast 11/10/24 0920 MR#: [id number] Acct: [id number] Name: GERRY RICO Rep #:[id number] : 1945 79 From: Lance Hooker Attending Dr: YRN Herr Sta tus: REG CLI Ordering Dr: Maren Olivas Driss e: 11/10/24 Location: [facility] Sex: M C Admitted: [...] 1213 Date _ Lance Rodriguez MD CC: DIVERSIFIED CROPS II FARMWORKERAgnieszka Pérez; Dr. Marycarmen Rodriguez DO; Maren Olivas NP ~ Date Dictated: 11/10/24919 Date Transcribed: 11/10/241212 [employer] Teacher: Signed [facility] Absolute lymphocyte countOrd ered By: Marycarmen Rodriguez on 11-09-2024 Lymphocytes Auto (Unsp spec) [#/Vol] 1.23 10*3/uL 0.83-4.51 [facility] Absolute neutrophil countOrd ered By: Marycarmen Rodriguez on 11-09-2024 Neutrophils (Bld) [#/Vol] 4.1 10*3/uL 2.0-7.7 [facility] Anion gap in Serum or Plasma Ordered By: Marycarmen Rodriguez on 11-09-2024 Anion gap [Moles/Vol] 14 mmol/L 09-14 [facility] Automated lymphocyte count a s percentage of total leukocytesOrdered By: Marycarmen Rodriguez on 11-09-2024 Lymphocytes/100 WBC Auto (Unsp spec) 19.9 % [facility] BUN/creatinine ratioOrdered By: Marycarmen Rodriguez on 11-09-2024 Urea nitrogen/Creatinine [Mass ratio] 19.7 mg/mg 02-19 [facility] Basic Metabolic Profile (BMP )on 11-09-2024 BUN/CRE 19.7 RATIO Normal 02-19 [facility] Comment on above: Performed By: #### L 503.7505, L500.2500, L100.0100 ####[facility] [address] [place], [address] Calcium [Mass/Vol] 9.3 mg/dL Normal 7.6-11.0 [facility] Comment on above: Performed By: #### L 503.7505, L500.2500, L100.0100 ####[facility] [address] [place], [address] Chloride [Moles/Vol] 102 mmol/L Normal 98-108 [facility] Comment on above: Performed By: #### L 503.7505, L500.2500, L100.0100 ####[facility] [address] [place], [address] CO2 [Moles/Vol] 22.5 mmol/L Normal 21.0-32.0 [facility] Comment on above: Performed By: #### L 503.7505, L500.2500, L100.0100 ####[facility] [address] [place], [address] Creatinine [Mass/Vol] 2.49 mg/dL High 0.70-1.20 [facility] Comment on above: Performed By: #### L 503.7505, L500.2500, L100.0100 ####[facility] [address] [place], [address] GAP 14 Normal 5-15 [facility] Comment on above: Performed By: #### L 503.7505, L500.2500, L100.0100 ####[facility] [address] [place], [address] GFR/1.73 sq M.predicted among non-blacks MDRD (S/P/Bld) [Vol rate/Area] 26 mL/min/{1.73_m2} Low >60 [facility] Comment on above: Result Comment: mL/m in/1.73m2 CKD-EPI Creatinine Equation (2020) Performed By: #### L 503.7505, L500.2500, L100.0100 ####[facility] [address] [place], [address] Glucose [Mass/Vol] 169 mg/dL High 70-99 [facility] Comment on above: Performed By: #### L 503.7505, L500.2500, L100.0100 ####[facility] [address] [place], [address] Potassium [Moles/Vol] 4.6 mmol/L Normal 3.3-5.1 [facility] Comment on above: Performed By: #### L 503.7505, L500.2500, L100.0100 ####[facility] [address] [place], [address] Sodium [Moles/Vol] 139 mmol/L Normal 133-145 [facility] Comment on above: Performed By: #### L 503.7505, L500.2500, L100.0100 ####[facility] [address] [place], [address] Urea nitrogen [Mass/Vol] 49 mg/dL High 4-19 [facility] Comment on above: Performed By: #### L 503.7505, L500.2500, L100.0100 ####[facility] [address] [place], [address] Basophil percentageOrdered B y: Marycarmen Rodriguez on 11-09-2024 Basophils/100 WBC (Bld) 0.3 % 0- [facility] CBC W/Diff, Automatedon 10-31 Absolute Lymph 1.23 X10 3/uL Normal 0.83-4.51 [facility] Comment on above: Performed By: #### L 503.7505, L500.2500, L100.0100 ####[facility] [address] [place], [address] Absolute Neut 4.1 X10 3/uL Normal 2.0-7.7 [facility] Comment on above: Performed By: #### L 503.7505, L500.2500, L100.0100 ####[facility] [address] [place], [address] Basophils/100 WBC (Bld) 0.3 % Normal 0-1 [facility] Comment on above: Performed By: #### L 503.7505, L500.2500, L100.0100 ####[facility] [address] [place], [address] Eosinophils/100 WBC (Bld) 2.4 % Normal 0-5 [facility] Comment on above: Performed By: #### L 503.7505, L500.2500, L100.0100 ####[facility] [address] [place], [address] Erythrocyte distribution width (RBC) [Ratio] 14.1 % Normal 11.6-14.6 [facility] Comment on above: Performed By: #### L 503.7505, L500.2500, L100.0100 ####[facility] [address] [place], [address] Hematocrit (Bld) [Volume fraction] 38.2 % Low 40-54 [facility] Comment on above: Performed By: #### L 503.7505, L500.2500, L100.0100 ####[facility] [address] [place], [address] Hemoglobin (Bld) [Mass/Vol] 12.2 g/dL Low 13.0-16.5 [facility] Comment on above: Performed By: #### L 503.7505, L500.2500, L100.0100 ####[facility] [address] [place], [address] IG% 0.500 Normal 0.0-0.9 [facility] Comment on above: Result Comment: IG% - Immature Granulocytes (promyelocytes, myelocytes andmetamyelocytes) > 1% indicates that a LEFT SHIFT is Present. Performed By: #### L 503.7505, L500.2500, L100.0100 ####[facility] [address] [place], [address] Lymphocytes/100 WBC (Bld) 19.9 % Normal 19-41 [facility] Comment on above: Performed By: #### L 503.7505, L500.2500, L100.0100 ####[facility] [address] [place], [address] MCH (RBC) [Entitic mass] 29.6 pg Normal 27.0-32.0 [facility] Comment on above: Performed By: #### L 503.7505, L500.2500, L100.0100 ####[facility] [address] [place], [address] MCHC (RBC) [Mass/Vol] 31.9 g/dL Low 32-36 [facility] Comment on above: Performed By: #### L 503.7505, L500.2500, L100.0100 ####[facility] [address] [place], [address] MCV (RBC) [Entitic vol] 92.7 fL Normal 80-94 [facility] Comment on above: Performed By: #### L 503.7505, L500.2500, L100.0100 ####[facility] [address] [place], [address] Monocytes/100 WBC (Bld) 10.4 % High 0-10 [facility] Comment on above: Performed By: #### L 503.7505, L500.2500, L100.0100 ####[facility] [address] [place], [address] Neutrophils/100 WBC (Bld) 66.5 % Normal 47-70 [facility] Comment on above: Performed By: #### L 503.7505, L500.2500, L100.0100 ####[facility] [address] [place], [address] Nucleated RBC (Bld) [#/Vol] 0 10*3/uL Normal 0-5 [facility] Comment on above: Performed By: #### L 503.7505, L500.2500, L100.0100 ####[facility] [address] [place], [address] Platelet mean volume (Bld) [Entitic vol] 12.7 fL High 6.2-12.0 [facility] Comment on above: Performed By: #### L 503.7505, L500.2500, L100.0100 ####[facility] [address] [place], [address] Platelets (Bld) [#/Vol] 120 10*3/uL Low 150-450 [facility] Comment on above: Performed By: #### L 503.7505, L500.2500, L100.0100 ####[facility] [address] [place], [address] RBC (Bld) [#/Vol] 4.12 10*6/uL Low 4.6-6.2 [facility] Comment on above: Performed By: #### L 503.7505, L500.2500, L100.0100 ####[facility] [address] [place], [address] RDW SD 47.8 fl High 35.1-43.9 [facility] Comment on above: Performed By: #### L 503.7505, L500.2500, L100.0100 ####[facility] [address] [place], [address] WBC (Bld) [#/Vol] 6.2 10*3/uL Normal 4.4-11.0 [facility] Comment on above: Performed By: #### L 503.6454, L500.2500, L100.0100 ####[facility] [address] [place], [address] Carbon dioxide, total [Moles /volume] in Central venous bloodOrdered By: Marycarmen Rodriguez on 11-09-2024 CO2 [Moles/Vol] 22.5 mmol/L 21.0-32.0 [facility] Chloride assayOrdered By: Danyelle Rodriguez on 11-09-2024 Chloride [Moles/Vol] 102 mmol/L 98-108 [facility] Eosinophil percentageOrdered By: Marycarmen Rodriguez on 11-09-2024 Eosinophils/100 WBC (Bld) 2.4 % 0-5 [facility] Erythrocyte distribution wid th ratioOrdered By: Marycarmen Rodriguez on 11-09-2024 Erythrocyte distribution width (RBC) [Ratio] 14.1 % 11.6-14.6 [facility] Erythrocyte distribution wid th standard deviationOrdered By: Marycarmen Rodriguez on 11-09-2024 Erythrocyte distribution width (RBC) [Ratio] 47.8 fl High 35.1-43.9 [facility] Glomerular filtration rate ( GFR) estimation/1.73 sq m using serum, plasma, or whole bOrdered By: Marycarmen Rodriguez on 11-09-2024 GFR/1.73 sq M.predicted among non-blacks MDRD (S/P/Bld) [Vol rate/Area] 26 mL/min/{1.73_m2} Low >60 [facility] Comment on above: mL/min/1.73m2 CKD-EP I Creatinine Equation (2020) Hematocrit Auto (Bld) [Volum e fraction]Ordered By: Marycarmen Rodriguez on 11-09-2024 Hematocrit (Bld) [Volume fraction] 38.2 % Low 40-54 [facility] Hemoglobin measurementOrdere d By: Marycarmen Rodriguez on 11-09-2024 Hemoglobin (Bld) [Mass/Vol] 12.2 g/dL Low 13.0-16.5 [facility] Immature granulocytes/100 WB C Auto (Bld)Ordered By: Marycarmen Rodriguez on 11-09-2024 Immature granulocytes/100 WBC (Bld) 0.500 % 0.0-0.9 [facility] Comment on above: IG% - Immature Granu locytes (promyelocytes, myelocytes and metamyelocytes) > 1% indicates that a LEFT SHIFT is Present. L503.7505on 11-09-2024 Natriuretic peptide B (Bld) [Mass/Vol] 91 pg/mL Normal <=1800 [facility] Comment on above: Result Comment: Hear t Failure Unlikely: < 300 pg/mLHeart Failure Likely< 50 Years: > 450 pg/mL50-75 Years: > 900 pg/mL>75 Years: > 1800 pg/mL Performed By: #### L 503.7505, L500.2500, L100.0100 ####[facility] [address] [place], [place], [address] MCV (mean corpuscular volume ) determinationOrdered By: Marycarmen Rodriguez on 11-09-2024 MCV (RBC) [Entitic vol] 92.7 fL 80-94 [facility] Mean corpuscular hemoglobin (MCH) determinationOrdered By: Marycarmen Rodriguez on 11-09-2024 MCH (RBC) [Entitic mass] 29.6 pg 27.0-32.0 [facility] Mean corpuscular hemoglobin concentration (MCHC) determinationOrdered By: Marycarmen Rodriguez on 11-09-2024 MCHC (RBC) [Mass/Vol] 31.9 g/dL Low 32-36 [facility] Mean platelet volume determi nationOrdered By: Marycarmen Rodriguez on 11-09-2024 Platelet mean volume (Bld) [Entitic vol] 12.7 fL High 6.2-12.0 [facility] Monocyte percentageOrdered B y: Marycarmen Rodriguez on 11-09-2024 Monocytes/100 WBC (Bld) 10.4 % High 0-10 [facility] Natriuretic peptide.B prohor efrem N-Terminal [Mass/volume] in Serum or PlasmaOrdered By: Marycarmen Rodriguez on 11-09-2024 Natriuretic peptide.B prohormone N-Terminal [Mass/Vol] 91 pg/mL <1800 [facility] Comment on above: Heart Failure Unlike ly: < 300 pg/mLHeart Failure Likely< 50 Years: > 450 pg/mL50-75 Years: > 900 pg/mL>75 Years: > 1800 pg/mL Neutrophil percentageOrdered By: Marycarmen Rodriguez on 11-09-2024 Neutrophils/100 WBC (Bld) 66.5 % 47-70 [facility] Nucleated red blood cell per centageOrdered By: Marycarmen Rodriguez on 11-09-2024 Nucleated RBC/100 WBC (Bld) [Ratio] 0 % 0-5 [facility] Platelet countOrdered By: Danyelle Rodriguez on 11-09-2024 Platelets (Bld) [#/Vol] 120 10*3/uL Low 150-450 [facility] Potassium measurement (mass/ volume)Ordered By: Marycarmen Rodriguez on 11-09-2024 Potassium (Unsp spec) [Mass/Vol] 4.6 mmol/L 3.3-5.1 [facility] RBC Auto (Bld) [#/Vol]Ordere d By: Marycarmen Rodriguez on 11-09-2024 RBC (Bld) [#/Vol] 4.12 10*6/uL Low 4.6-6.2 [facility] Serum creatinine measurement (mass/volume)Ordered By: Marycarmen Rodriguez on 11-09-2024 Creatinine [Mass/Vol] 2.49 mg/dL High 0.70-1.20 [facility] Serum glucose measurement (m ass/volume)Ordered By: Marycarmen Rodriguez on 11-09-2024 Glucose [Mass/Vol] 169 mg/dL High 70-99 [facility] Serum or plasma calcium francine urement (mass/volume)Ordered By: Marycarmen Rodriguez on 11-09-2024 Calcium [Mass/Vol] 9.3 mg/dL 7.6-11.0 [facility] Serum or plasma urea nitroge n measurement (mass/volume)Ordered By: Marycarmen Rodriguez on 11-09-2024 Urea nitrogen [Mass/Vol] 49 mg/dL High 4-19 [facility] Sodium levelOrdered By: Marycarmen Rodriguez on 07-10-2025 Sodium [Moles/Vol] 139 mmol/L 133-145 [facility] White blood cell (WBC) count Ordered By: Marycarmen Rodriguez on 11-09-2024 WBC (Bld) [#/Vol] 6.2 10*3/uL 4.4-11.0 [facility] Pulmonary Visit Reporton Pulmonary Visit Report Normal [facility] Cardiology Visit Reporton Cardiology Visit Report Normal [facility] L3410.9992on 10-23-2024 [facility] Misc. COMMENT Normal . [facility] Comment on above: Order Comment: [id number] 0MED TOX Result Comment: Test Ordered: [id number] U53-Kuqngl+HH3Cfrobxxxbwzt Screen, Urine Negative ng/mL UI Reference Range: Yivsem=840Ihbfkkdrztb test includes Amphetamine and Methamphetamine.Barbiturates Negative ng/mL UI Reference Range: Uasxex=299Bdjaqdcsighfwug Negative ng/mL UI Reference Range: Sebvyl=593Aoddgwi (Metab.), Urine Negative ng/mL UI Reference Range: Rhflnj=062Hhxfpcp Note: ng/mL UI See Final Results Reference Range: Mqbexj=349Stqguo test includes Codeine, Morphine, Hydromorphone, Hydrocodone.Opiates Positive [A ] UI Reference Range: Icsxeh=644Abjqie test includes Codeine, Morphine, Hydromorphone, Hydrocodone.Codeine Negative UI Reference Range: Pxkkus=833Eghnluwy Negative UI Reference Range: Nxoigg=487Tfgtwmdkmbygh Negative UI Reference Range: Mwovvu=665Nnpgtieiyoy Positive [A ] UI Reference Range: .Hydrocodone Conf, MS, UR 349 ng/mL UI Reference Range: Bxhwog=1646-Czmodroyzgbqax, Urine Negative ng/mL UI Reference Range: Cutoff=10Oxycodone/Oxymorphone, Urine Negative ng/mL UI Reference Range: Ajkxzb=324Ofuj includes Oxycodone and OxymorphonePCP, Urine Negative ng/mL UI Reference Range: Cutoff=25Methadone Screen, Urine Negative ng/mL UI Reference Range: Qfvpjy=481Zhqanxombzfw, Urine Negative ng/mL UI Reference Range: Efwfqd=226Rcdqxdyk, Urine Negative ng/mL UI Reference Range: Cutoff=2.0Test includes Fentanyl and NorfentanylThis test was developed and its performance characteristicsdetermined by [employer] It has not been cleared orapproved by the Food and Drug Administration.Tramadol Negative ng/mL UI Reference Range: Fbvdwk=419Ulsiqtdfbdrix, Urine Negative ng/mL UI Reference Range: Cutoff=10Creatinine, Urine 36.9 mg/dL UI Reference Range: 20.0-300.0pH, Urine 6.1 UI Reference Range: 4.5-8.9Performed at: UI - [facility] [id number] [place], [place] [id number] Director: Erik Wallis PhD, Phone: [phone] at: [facility] [address] [id number] Director: Bharath Hawthorne PhD, Phone: [phone] Performed By: #### L 3410.9992, L505.5000 ####[facility] [address] [place], [place], [id number] Absolute lymphocyte countOrd ered By: Gustabo Pérez on 10-18-2024 Lymphocytes Auto (Unsp spec) [#/Vol] 1.15 10*3/uL 0.83-4.51 [facility] Absolute neutrophil countOrd ered By: Gustabo Pérez on 10-18-2024 Neutrophils (Bld) [#/Vol] 4.6 10*3/uL 2.0-7.7 [facility] Amphetamine detection with 1 000 ng/mL as cutoffOrdered By: Brooks Carpenter on 10-18-2024 Amphetamines Screen method >1000 ng/mL Ql (U) Negative < 200 ng/mL [facility] Anion gap in Serum or Plasma Ordered By: Gustabo Pérez on 10-18-2024 Anion gap [Moles/Vol] 12 mmol/L 5-15 [facility] Automated lymphocyte count a s percentage of total leukocytesOrdered By: Gustabo Pérez on 10-18-2024 Lymphocytes/100 WBC Auto (Unsp spec) 17.4 % Low 19-41 [facility] BUN/creatinine ratioOrdered By: Gustabo Pérez on 10-18-2024 Urea nitrogen/Creatinine [Mass ratio] 16.4 mg/mg 10-20 [facility] Basic Metabolic Profile (BMP )on 10-18-2024 BUN/CRE 16.4 RATIO Normal 10-20 [facility] [facility] Comment on above: Performed By: #### L 500.2500, L100.0100, L503.7505 ####[facility] [address] [place], [address] Calcium [Mass/Vol] 9.0 mg/dL Normal 7.6-11.0 [facility] Comment on above: Performed By: #### L 500.2500, L100.0100, L503.7505 ####[facility] [address] [place], [address] Chloride [Moles/Vol] 103 mmol/L Normal 98-108 [facility] Comment on above: Performed By: #### L 500.2500, L100.0100, L503.7505 ####[facility] [address] [place], [address] CO2 [Moles/Vol] 23.9 mmol/L Normal 21.0-32.0 [facility] Comment on above: Performed By: #### L 500.2500, L100.0100, L503.7505 ####[facility] [address] [place], [address] Creatinine [Mass/Vol] 2.00 mg/dL High 0.70-1.20 [facility] Comment on above: Performed By: #### L 500.2500, L100.0100, L503.7505 ####[facility] [address] [place], [address] GAP 12 Normal 5-15 [facility] Comment on above: Performed By: #### L 500.2500, L100.0100, L503.7505 ####[facility] [address] [place], [address] GFR/1.73 sq M.predicted among non-blacks MDRD (S/P/Bld) [Vol rate/Area] 33 mL/min/{1.73_m2} Low >60 [facility] Comment on above: Result Comment: mL/m in/1.73m2 CKD-EPI Creatinine Equation (2020) Performed By: #### L 500.2500, L100.0100, L503.7505 ####[facility] [address] [place], [address] Glucose [Mass/Vol] 125 mg/dL High 70-99 [facility] Comment on above: Performed By: #### L 500.2500, L100.0100, L503.7505 ####[facility] [address] [place], [address] Potassium [Moles/Vol] 4.8 mmol/L Normal 3.3-5.1 [facility] Comment on above: Performed By: #### L 500.2500, L100.0100, L503.7505 ####[facility] [address] [place], [address] Sodium [Moles/Vol] 139 mmol/L Normal 133-145 [facility] Comment on above: Performed By: #### L 500.2500, L100.0100, L503.7505 ####[facility] [address] [place], [address] Urea nitrogen [Mass/Vol] 33 mg/dL High 4-19 [facility] Comment on above: Performed By: #### L 500.2500, L100.0100, L503.7505 ####[facility] [address] [place], [address] Basophil percentageOrdered B y: Gustabo Pérez on 10-18-2024 Basophils/100 WBC (Bld) 0.2 % 0-1 [facility] CBC W/Diff, Automatedon 10-01 Absolute Lymph 1.15 X10 3/uL Normal 0.83-4.51 [facility] Comment on above: Performed By: #### L 500.2500, L100.0100, L503.7505 ####[facility] [address] [place], [address] Absolute Neut 4.6 X10 3/uL Normal 2.0-7.7 [facility] Comment on above: Performed By: #### L 500.2500, L100.0100, L503.7505 ####[facility] [address] [place], [address] Basophils/100 WBC (Bld) 0.2 % Normal 0-1 [facility] Comment on above: Performed By: #### L 500.2500, L100.0100, L503.7505 ####[facility] [address] [place], [address] Eosinophils/100 WBC (Bld) 2.0 % Normal 0-5 [facility] Comment on above: Performed By: #### L 500.2500, L100.0100, L503.7505 ####[facility] [address] [place], [address] Erythrocyte distribution width (RBC) [Ratio] 14.3 % Normal 11.6-14.6 [facility] Comment on above: Performed By: #### L 500.2500, L100.0100, L503.7505 ####[facility] [address] [place], [address] Hematocrit (Bld) [Volume fraction] 36.4 % Low 40-54 [facility] Comment on above: Performed By: #### L 500.2500, L100.0100, L503.7505 ####[facility] [address] [place], [address] Hemoglobin (Bld) [Mass/Vol] 11.5 g/dL Low 13.0-16.5 [facility] Comment on above: Performed By: #### L 500.2500, L100.0100, L503.7505 ####[facility] [address] [place], [address] IG% 0.600 Normal 0.0-0.9 [facility] Comment on above: Result Comment: IG% - Immature Granulocytes (promyelocytes, myelocytes andmetamyelocytes) > 1% indicates that a LEFT SHIFT is Present. Performed By: #### L 500.2500, L100.0100, L503.7505 ####[facility] [address] [place], [address] Lymphocytes/100 WBC (Bld) 17.4 % Low 19-41 [facility] Comment on above: Performed By: #### L 500.2500, L100.0100, L503.7505 ####[facility] [address] [place], [address] MCH (RBC) [Entitic mass] 29.4 pg Normal 27.0-32.0 [facility] Comment on above: Performed By: #### L 500.2500, L100.0100, L503.7505 ####[facility] [address] [place], [address] MCHC (RBC) [Mass/Vol] 31.6 g/dL Low 32-36 [facility] Comment on above: Performed By: #### L 500.2500, L100.0100, L503.7505 ####[facility] [address] [place], [address] MCV (RBC) [Entitic vol] 93.1 fL Normal 80-94 [facility] Comment on above: Performed By: #### L 500.2500, L100.0100, L503.7505 ####[facility] [address] [place], [address] Monocytes/100 WBC (Bld) 10.4 % High 0-10 [facility] Comment on above: Performed By: #### L 500.2500, L100.0100, L503.7505 ####[facility] [address] [place], [address] Neutrophils/100 WBC (Bld) 69.4 % Normal 47-70 [facility] Comment on above: Performed By: #### L 500.2500, L100.0100, L503.7505 ####[facility] [address] [place], [address] Nucleated RBC (Bld) [#/Vol] 0 10*3/uL Normal 0-5 [facility] Comment on above: Performed By: #### L 500.2500, L100.0100, L503.7505 ####[facility] [address] [place], [address] Platelet mean volume (Bld) [Entitic vol] 12.9 fL High 6.2-12.0 [facility] Comment on above: Performed By: #### L 500.2500, L100.0100, L503.7505 ####[facility] [address] [place], [address] Platelets (Bld) [#/Vol] 152 10*3/uL Normal 150-450 [facility] Comment on above: Performed By: #### L 500.2500, L100.0100, L503.7505 ####[facility] [address] [place], [address] RBC (Bld) [#/Vol] 3.91 10*6/uL Low 4.6-6.2 [facility] Comment on above: Performed By: #### L 500.2500, L100.0100, L503.7505 ####[facility] [address] [place], [address] RDW SD 48.5 fl High 35.1-43.9 [facility] Comment on above: Performed By: #### L 500.2500, L100.0100, L503.7505 ####[facility] [address] [place], [address] WBC (Bld) [#/Vol] 6.6 10*3/uL Normal 4.4-11.0 [facility] Comment on above: Performed By: #### L 500.2500, L100.0100, L503.7505 ####[facility] [address] [place], [address] Carbon dioxide, total [Moles /volume] in Central venous bloodOrdered By: Gustabo Pérez on 10-18-2024 CO2 [Moles/Vol] 23.9 mmol/L 21.0-32.0 [facility] Chloride assayOrdered By: Lydia Pérez on 10-18-2024 Chloride [Moles/Vol] 103 mmol/L 98-108 [facility] Eosinophil percentageOrdered By: Gustabo Pérez on 10-18-2024 Eosinophils/100 WBC (Bld) 2.0 % 0-5 [facility] Erythrocyte distribution wid th ratioOrdered By: Gustabo Pérez on 10-18-2024 Erythrocyte distribution width (RBC) [Ratio] 14.3 % 11.6-14.6 [facility] Erythrocyte distribution wid th standard deviationOrdered By: Gustabo Pérez on 10-18-2024 Erythrocyte distribution width (RBC) [Ratio] 48.5 fl High 35.1-43.9 [facility] Glomerular filtration rate ( GFR) estimation/1.73 sq m using serum, plasma, or whole bOrdered By: Gustabo Pérez on 10-18-2024 GFR/1.73 sq M.predicted among non-blacks MDRD (S/P/Bld) [Vol rate/Area] 33 mL/min/{1.73_m2} Low >60 [facility] Comment on above: mL/min/1.73m2 CKD-EP I Creatinine Equation (2020) Hematocrit Auto (Bld) [Volum e fraction]Ordered By: Gustabo Pérez on 10-18-2024 Hematocrit (Bld) [Volume fraction] 36.4 % Low 40-54 [facility] Hemoglobin measurementOrdere d By: Gustabo Pérez on 10-18-2024 Hemoglobin (Bld) [Mass/Vol] 11.5 g/dL Low 13.0-16.5 [facility] Immature granulocytes/100 WB C Auto (Bld)Ordered By: Gustabo Pérez on 10-18-2024 Immature granulocytes/100 WBC (Bld) 0.600 % 0.0-0.9 [facility] Comment on above: IG% - Immature Granu locytes (promyelocytes, myelocytes and metamyelocytes) > 1% indicates that a LEFT SHIFT is Present. L503.7505on 10-18-2024 Natriuretic peptide B (Bld) [Mass/Vol] 200 pg/mL Normal <=1800 [facility] Comment on above: Result Comment: Hear t Failure Unlikely: < 300 pg/mLHeart Failure Likely< 50 Years: > 450 pg/mL50-75 Years: > 900 pg/mL>75 Years: > 1800 pg/mL Performed By: #### L 500.2500, L100.0100, L503.7505 ####[facility] [address] [place], [address] MCV (mean corpuscular volume ) determinationOrdered By: Gustabo Pérez on 10-18-2024 MCV (RBC) [Entitic vol] 93.1 fL 80-94 [facility] Mean corpuscular hemoglobin (MCH) determinationOrdered By: Gustabo Pérez on 10-18-2024 MCH (RBC) [Entitic mass] 29.4 pg 27.0-32.0 [facility] Mean corpuscular hemoglobin concentration (MCHC) determinationOrdered By: Gustabo Pérez on 10-18-2024 MCHC (RBC) [Mass/Vol] 31.6 g/dL Low 32-36 [facility] Mean platelet volume determi nationOrdered By: Gustabo Pérez on 10-18-2024 Platelet mean volume (Bld) [Entitic vol] 12.9 fL High 6.2-12.0 [facility] Monocyte percentageOrdered B y: Gustabo Pérez on 10-18-2024 Monocytes/100 WBC (Bld) 10.4 % High 0-10 [facility] Natriuretic peptide.B prohor efrem N-Terminal [Mass/volume] in Serum or PlasmaOrdered By: Gustabo Pérez on 10-18-2024 Natriuretic peptide.B prohormone N-Terminal [Mass/Vol] 200 pg/mL <1800 [facility] Comment on above: Heart Failure Unlike ly: < 300 pg/mLHeart Failure Likely< 50 Years: > 450 pg/mL50-75 Years: > 900 pg/mL>75 Years: > 1800 pg/mL Neutrophil percentageOrdered By: Gustabo Pérez on 10-18-2024 Neutrophils/100 WBC (Bld) 69.4 % 47-70 [facility] No Panel InformationOrdered By: Brooks Carpenter on 10-18-2024 Urine Buprenorphine Qualitative Negative < 200 ng/mL [facility] Urine Oxycodone Screen Negative < 100 ng/mL [facility] Negative < 200 ng/mL [facility] Nucleated red blood cell per centageOrdered By: Gustabo Pérez on 10-18-2024 Nucleated RBC/100 WBC (Bld) [Ratio] 0 % 0-5 [facility] Platelet countOrdered By: Lydia Pérez on 10-18-2024 Platelets (Bld) [#/Vol] 152 10*3/uL 150-450 [facility] Potassium measurement (mass/ volume)Ordered By: Gustabo Pérez on 10-18-2024 Potassium (Unsp spec) [Mass/Vol] 4.8 mmol/L 3.3-5.1 [facility] Quantitative urine opiates m easurementOrdered By: Brooks Carpenter on 10-18-2024 Opiates Ql (U) Positive < 300 ng/mL [facility] Comment on above: If confirmation test ing is needed, a separate order will be required to send out testing to the reference laboratory. RBC Auto (Bld) [#/Vol]Ordere d By: Gustabo Pérez on 10-18-2024 RBC (Bld) [#/Vol] 3.91 10*6/uL Low 4.6-6.2 [facility] Screening urine fentanyl ritu surementOrdered By: Brooks Carpenter on 10-18-2024 fentaNYL Screen Ql (U) Negative [facility] Serum creatinine measurement (mass/volume)Ordered By: Gustabo Pérez on 10-18-2024 Creatinine [Mass/Vol] 2.00 mg/dL High 0.70-1.20 [facility] Serum glucose measurement (m ass/volume)Ordered By: Gustabo Pérez on 10-18-2024 Glucose [Mass/Vol] 125 mg/dL High 70-99 [facility] Serum or plasma calcium francine urement (mass/volume)Ordered By: Gustabo Pérez on 10-18-2024 Calcium [Mass/Vol] 9.0 mg/dL 7.6-11.0 [facility] Serum or plasma urea nitroge n measurement (mass/volume)Ordered By: Gustabo Pérez on 10-18-2024 Urea nitrogen [Mass/Vol] 33 mg/dL High 4-19 [facility] Sodium levelOrdered By: Gustabo Pérez on 10-18-2024 Sodium [Moles/Vol] 139 mmol/L 133-145 [facility] Urine Drug Screen (VISTA)on 10-18-2024 AMPHETAMINES Negative Normal <1000 ng/mL [facility] Comment on above: Order Comment: PAIN MANAGMENT Performed By: #### L 3410.9992, L505.5000 ####[facility] [address] [place] [address] BARBITIURATES Negative Normal < 200 ng/mL [facility] Comment on above: Order Comment: PAIN MANAGMENT Performed By: #### L 3410.9992, L505.5000 ####[facility] [address] [facility] [address] BENZODIAZIPINE Negative Normal < 200 ng/mL [facility] Comment on above: Order Comment: PAIN MANAGMENT Performed By: #### L 3410.9992, L505.5000 ####[facility] [address] [facility] [address] BUP Ur Drug Scr Negative Normal < 200 ng/mL [facility] Comment on above: Order Comment: PAIN MANAGMENT Performed By: #### L 3410.9992, L505.5000 ####[facility] [address] [facility] [address] COCAINE Negative Normal < 300 ng/mL [facility] Comment on above: Order Comment: PAIN MANAGMENT Performed By: #### L 3410.9992, L505.5000 ####[facility] [address] [place], [address] Fentanyl Negative Normal [facility] Comment on above: Order Comment: PAIN MANAGMENT Performed By: #### L 3410.9992, L505.5000 ####[facility] [address] [place], [address] METHADONE Negative Normal < 300 ng/mL [facility] Comment on above: Order Comment: PAIN MANAGMENT Performed By: #### L 3410.9992, L505.5000 ####[facility] [address] [place], [address] OPIATES Positive Normal < 300 ng/mL [facility] Comment on above: Order Comment: PAIN MANAGMENT Result Comment: If c onfirmation testing is needed, a separate order will berequired to send out testing to the reference laboratory. Performed By: #### L 3410.9992, L505.5000 ####[facility] [address] [place], [address] OXYCODONE Negative Normal < 100 ng/mL [facility] Comment on above: Order Comment: PAIN MANAGMENT Performed By: #### L 3410.9992, L505.5000 ####[facility] [address] [place], [address] PCP Negative Normal < 25 ng/mL [facility] Comment on above: Order Comment: PAIN MANAGMENT Performed By: #### L 3410.9992, L505.5000 ####[facility] [address] [place], [address] THC Negative Normal < 50 ng/mL [facility] Comment on above: Order Comment: PAIN MANAGMENT Performed By: #### L 3410.9992, L505.5000 ####[facility] [address] [place], [address] Urine benzodiazepine levelOr dered By: Brooks Carpenter on 10-18-2024 Benzodiazepines Ql (U) Negative < 200 ng/mL [facility] Urine cocaine levelOrdered B y: Brooks Basali on 10-18-2024 Cocaine Ql (U) Negative < 300 ng/mL [facility] Urine qlfyj-3-enwmwnaupllwap abinol (THC) measurementOrdered By: Brooks Basali on 10-18-2024 Cannabinoids Screen Ql (U) Negative < 50 ng/mL [facility] Urine phencyclidine (PCP) de tectionOrdered By: Brooks Basali on 10-18-2024 Phencyclidine Ql (U) Negative < 25 ng/mL [facility] White blood cell (WBC) count Ordered By: Gustabo Pérez on 10-18-2024 WBC (Bld) [#/Vol] 6.6 10*3/uL 4.4-11.0 [facility] Absolute lymphocyte countOrd ered By: Marycarmen Rodriguez on 09-29-2024 Lymphocytes Auto (Unsp spec) [#/Vol] 1.35 10*3/uL 0.83-4.51 [facility] Absolute neutrophil countOrd ered By: Marycarmen Rodriguez on 09-29-2024 Neutrophils (Bld) [#/Vol] 9.2 10*3/uL High 2.0-7.7 [facility] Automated lymphocyte count a s percentage of total leukocytesOrdered By: Marycarmen Rodriguez on 09-29-2024 Lymphocytes/100 WBC Auto (Unsp spec) 10.9 % Low 19-41 [facility] Basophil percentageOrdered B y: Marycarmen Rodriguez on 09-29-2024 Basophils/100 WBC (Bld) 0.6 % 0-1 [facility] CBC W/Diff, Automatedon 09-02 Absolute Lymph 1.35 X10 3/uL Normal 0.83-4.51 [facility] Comment on above: Performed By: #### L 503.0106, L100.0100, L503.2722, L503.5072 ####[facility] [address] [place], [place], [address] Absolute Neut 9.2 X10 3/uL High 2.0-7.7 [facility] Comment on above: Performed By: #### L 503.0106, L100.0100, L503.6550, L503.6150 ####[facility] [address] [place], [address] Basophils/100 WBC (Bld) 0.6 % Normal 0-1 [facility] Comment on above: Performed By: #### L 503.0106, L100.0100, L503.6550, L503.6150 ####[facility] [address] [place], [address] Eosinophils/100 WBC (Bld) 0.7 % Normal 0-5 [facility] Comment on above: Performed By: #### L 503.0106, L100.0100, L503.6550, L503.6150 ####[facility] [address] [place], [address] Erythrocyte distribution width (RBC) [Ratio] 14.2 % Normal 11.6-14.6 [facility] Comment on above: Performed By: #### L 503.0106, L100.0100, L503.6550, L503.6150 ####[facility] [address] [place], [address] Hematocrit (Bld) [Volume fraction] 37.4 % Low 40-54 [facility] Comment on above: Performed By: #### L 503.0106, L100.0100, L503.6550, L503.6150 ####[facility] [address] [place], [address] Hemoglobin (Bld) [Mass/Vol] 12.1 g/dL Low 13.0-16.5 [facility] Comment on above: Performed By: #### L 503.0106, L100.0100, L503.6550, L503.6150 ####[facility] [address] [place], [address] IG% 3.600 High 0.0-0.9 [facility] Comment on above: Result Comment: IG% - Immature Granulocytes (promyelocytes, myelocytes andmetamyelocytes) > 1% indicates that a LEFT SHIFT is Present. Performed By: #### L 503.0106, L100.0100, L503.6550, L503.6150 ####[facility] [address] [place], [address] Lymphocytes/100 WBC (Bld) 10.9 % Low 19-41 [facility] Comment on above: Performed By: #### L 503.0106, L100.0100, L503.6550, L503.6150 ####[facility] [address] [place], [address] MCH (RBC) [Entitic mass] 29.6 pg Normal 27.0-32.0 [facility] Comment on above: Performed By: #### L 503.0106, L100.0100, L503.6550, L503.6150 ####[facility] [address] [place], [address] MCHC (RBC) [Mass/Vol] 32.4 g/dL Normal 32-36 [facility] Comment on above: Performed By: #### L 503.0106, L100.0100, L503.6550, L503.6150 ####[facility] [address] [place], [address] MCV (RBC) [Entitic vol] 91.4 fL Normal 80-94 [facility] Comment on above: Performed By: #### L 503.0106, L100.0100, L503.6550, L503.6150 ####[facility] [address] [place], [address] Monocytes/100 WBC (Bld) 9.9 % Normal 0-10 [facility] Comment on above: Performed By: #### L 503.0106, L100.0100, L503.6550, L503.6150 ####[facility] [address] [place], [address] Neutrophils/100 WBC (Bld) 74.3 % High 47-70 [facility] Comment on above: Performed By: #### L 503.0106, L100.0100, L503.6550, L503.6150 ####[facility] [address] [place], [address] Nucleated RBC (Bld) [#/Vol] 0 10*3/uL Normal 0-5 [facility] Comment on above: Performed By: #### L 503.0106, L100.0100, L503.6550, L503.6150 ####[facility] [address] [place], [address] Platelet mean volume (Bld) [Entitic vol] 12.3 fL High 6.2-12.0 [facility] Comment on above: Performed By: #### L 503.0106, L100.0100, L503.6550, L503.6150 ####[facility] [address] [place], [address] Platelets (Bld) [#/Vol] 169 10*3/uL Normal 150-450 [facility] Comment on above: Performed By: #### L 503.0106, L100.0100, L503.6550, L503.6150 ####[facility] [address] [place], [address] RBC (Bld) [#/Vol] 4.09 10*6/uL Low 4.6-6.2 [facility] Comment on above: Performed By: #### L 503.0106, L100.0100, L503.6550, L503.6150 ####[facility] [address] [place], [address] RDW SD 47.4 fl High 35.1-43.9 [facility] Comment on above: Performed By: #### L 503.0106, L100.0100, L503.6550, L503.6150 ####[facility] [address] [place], [place], [address] WBC (Bld) [#/Vol] 12.4 10*3/uL High 4.4-11.0 [facility] Comment on above: Performed By: #### L 503.0106, L100.0100, L503.6550, L503.6150 ####[facility] [address] [place], [address] Eosinophil percentageOrdered By: Marycarmen Rodriguez on 09-29-2024 Eosinophils/100 WBC (Bld) 0.7 % 0-5 [facility] Erythrocyte distribution wid th ratioOrdered By: Marycarmen Rodriguez on 09-29-2024 Erythrocyte distribution width (RBC) [Ratio] 14.2 % 11.6-14.6 [facility] Erythrocyte distribution wid th standard deviationOrdered By: Marycarmen Rodriguez on 09-29-2024 Erythrocyte distribution width (RBC) [Ratio] 47.4 fl High 35.1-43.9 [facility] [facility] Ferritinon 09-29-2024 Ferritin [Mass/Vol] 454 ng/mL High 37-417 [facility] Comment on above: Performed By: #### L 503.0106, L100.0100, L503.6550, L503.6150 ####[facility] [address] [place], [address] Hematocrit Auto (Bld) [Volum e fraction]Ordered By: Marycarmen Rodriguez on 09-29-2024 Hematocrit (Bld) [Volume fraction] 37.4 % Low 40-54 [facility] Hemoglobin measurementOrdere d By: Marycarmen Rodriguez on 09-29-2024 Hemoglobin (Bld) [Mass/Vol] 12.1 g/dL Low 13.0-16.5 [facility] Immature granulocytes/100 WB C Auto (Bld)Ordered By: Marycarmen Rodriguez on 09-29-2024 Immature granulocytes/100 WBC (Bld) 3.600 % High 0.0-0.9 [facility] Comment on above: IG% - Immature Granu locytes (promyelocytes, myelocytes and metamyelocytes) > 1% indicates that a LEFT SHIFT is Present. Ironon 09-29-2024 Iron [Mass/Vol] 80 ug/dL Normal 65-175 [facility] Comment on above: Performed By: #### L 503.0106, L100.0100, L503.6550, L503.6150 ####[facility] [address] [place], [place], [id number] Iron measurement (mass/mass) Ordered By: Marycarmen Rodriguez on 09-29-2024 Iron (Unsp spec) [Mass/Mass] 80 ug/dL 65-175 [facility] MCV (mean corpuscular volume ) determinationOrdered By: Marycarmen Rodriguez on 09-29-2024 MCV (RBC) [Entitic vol] 91.4 fL 80-94 [facility] Mean corpuscular hemoglobin (MCH) determinationOrdered By: Marycarmen Rodriguez on 09-29-2024 MCH (RBC) [Entitic mass] 29.6 pg 27.0-32.0 [facility] Mean corpuscular hemoglobin concentration (MCHC) determinationOrdered By: Marycarmen Rodriguez on 09-29-2024 MCHC (RBC) [Mass/Vol] 32.4 g/dL 32-36 [facility] Mean platelet volume determi nationOrdered By: Marycarmen Rodriguez on 09-29-2024 Platelet mean volume (Bld) [Entitic vol] 12.3 fL High 6.2-12.0 [facility] Monocyte percentageOrdered B y: Marycarmen Rodriguez on 09-29-2024 Monocytes/100 WBC (Bld) 9.9 % 0-10 [facility] Neutrophil percentageOrdered By: Marycarmen Rodriguez on 09-29-2024 Neutrophils/100 WBC (Bld) 74.3 % High 47-70 [facility] Nucleated red blood cell per centageOrdered By: Marycarmen Rodriguez on 09-29-2024 Nucleated RBC/100 WBC (Bld) [Ratio] 0 % 0-5 [facility] Platelet countOrdered By: Danyelle Rodriguez on 09-29-2024 Platelets (Bld) [#/Vol] 169 10*3/uL 150-450 [facility] RBC Auto (Bld) [#/Vol]Ordere d By: Marycarmen Rodriguez on 09-29-2024 RBC (Bld) [#/Vol] 4.09 10*6/uL Low 4.6-6.2 [facility] Serum or plasma ferritin ritu surement (mass/volume)Ordered By: Marycarmen Rodriguez on 09-29-2024 Ferritin [Mass/Vol] 454 ng/mL High 37-417 [facility] Vitamin B12on 09-29-2024 Cobalamin (Vitamin B12) [Mass/Vol] 766 pg/mL Normal 180-914 [facility] Comment on above: Performed By: #### L 503.0106, L100.0100, L503.6550, L503.6150 ####[facility] [address] [place], [address] Vitamin B12 ser/plasOrdered By: Marycarmen Rodriguez on 09-29-2024 Cobalamin (Vitamin B12) [Mass/Vol] 766 pg/mL 180-914 [facility] White blood cell (WBC) count Ordered By: Marycarmen Rodriguez on 09-29-2024 WBC (Bld) [#/Vol] 12.4 10*3/uL High 4.4-11.0 [facility] Absolute lymphocyte countOrd ered By: ELIAZAR Olivas on 09-20-2024 Lymphocytes Auto (Unsp spec) [#/Vol] 1.44 10*3/uL 0.83-4.51 [facility] Absolute neutrophil countOrd ered By: ELIAZAR Olivas on 09-20-2024 Neutrophils (Bld) [#/Vol] 6.6 10*3/uL 2.0-7.7 [facility] Automated lymphocyte count a s percentage of total leukocytesOrdered By: ELIAZAR Olivas on 09-20-2024 Lymphocytes/100 WBC Auto (Unsp spec) 15.5 % Low 19-41 [facility] Basophil percentageOrdered B y: DIVERSIFIED CROPS II FARMWORK[employer] Maren Olivas on 09-20-2024 Basophils/100 WBC (Bld) 0.3 % 0-1 [facility] CBC W/Diff, Automatedon - Absolute Lymph 1.44 X10 3/uL Normal 0.83-4.51 [facility] Comment on above: Performed By: #### L 503.7505, L100.0100 ####[facility] [address] [place], [address] Absolute Neut 6.6 X10 3/uL Normal 2.0-7.7 [facility] Comment on above: Performed By: #### L 503.7505, L100.0100 ####[facility] [address] [place], [address] Basophils/100 WBC (Bld) 0.3 % Normal 0-1 [facility] Comment on above: Performed By: #### L 503.7505, L100.0100 ####[facility] [address] [place], [address] Eosinophils/100 WBC (Bld) 1.5 % Normal 0-5 [facility] Comment on above: Performed By: #### L 503.7505, L100.0100 ####[facility] [address] [place], [address] Erythrocyte distribution width (RBC) [Ratio] 14.1 % Normal 11.6-14.6 [facility] Comment on above: Performed By: #### L 503.7505, L100.0100 ####[facility] [address] [place], [address] Hematocrit (Bld) [Volume fraction] 34.8 % Low 40-54 [facility] Comment on above: Performed By: #### L 503.7505, L100.0100 ####[facility] [address] [place], [address] Hemoglobin (Bld) [Mass/Vol] 11.1 g/dL Low 13.0-16.5 [facility] Comment on above: Performed By: #### L 503.7505, L100.0100 ####[facility] [address] [place], [address] IG% 0.800 Normal 0.0-0.9 [facility] Comment on above: Result Comment: IG% - Immature Granulocytes (promyelocytes, myelocytes andmetamyelocytes) > 1% indicates that a LEFT SHIFT is Present. Performed By: #### L 503.7505, L100.0100 ####[facility] [address] [place], [address] Lymphocytes/100 WBC (Bld) 15.5 % Low 19-41 [facility] Comment on above: Performed By: #### L 503.7505, L100.0100 ####[facility] [address] [place], [address] MCH (RBC) [Entitic mass] 29.4 pg Normal 27.0-32.0 [facility] Comment on above: Performed By: #### L 503.7505, L100.0100 ####[facility] [address] [place], [address] MCHC (RBC) [Mass/Vol] 31.9 g/dL Low 32-36 [facility] Comment on above: Performed By: #### L 503.7505, L100.0100 ####[facility] [address] [place], [address] MCV (RBC) [Entitic vol] 92.1 fL Normal 80-94 [facility] Comment on above: Performed By: #### L 503.7505, L100.0100 ####[facility] [address] [place], [address] Monocytes/100 WBC (Bld) 11.1 % High 0-10 [facility] Comment on above: Performed By: #### L 503.7505, L100.0100 ####[facility] [address] [place], [address] Neutrophils/100 WBC (Bld) 70.8 % High 47-70 [facility] Comment on above: Performed By: #### L 503.7505, L100.0100 ####[facility] [address] [place], [address] Nucleated RBC (Bld) [#/Vol] 0 10*3/uL Normal 0-5 [facility] Comment on above: Performed By: #### L 503.7505, L100.0100 ####[facility] [address] [place], [address] Platelet mean volume (Bld) [Entitic vol] 12.6 fL High 6.2-12.0 [facility] Comment on above: Performed By: #### L 503.7505, L100.0100 ####[facility] [address] [place], [address] Platelets (Bld) [#/Vol] 166 10*3/uL Normal 150-450 [facility] Comment on above: Performed By: #### L 503.7505, L100.0100 ####[facility] [address] [place], [address] RBC (Bld) [#/Vol] 3.78 10*6/uL Low 4.6-6.2 [facility] Comment on above: Performed By: #### L 503.7505, L100.0100 ####[facility] [address] [place], [address] RDW SD 48.0 fl High 35.1-43.9 [facility] Comment on above: Performed By: #### L 503.7505, L100.0100 ####[facility] [address] [place], [address] WBC (Bld) [#/Vol] 9.3 10*3/uL Normal 4.4-11.0 [facility] Comment on above: Performed By: #### L 503.7505, L100.0100 ####[facility] [address] [place], [address] Eosinophil percentageOrdered By: ELIAZAR Olivas on 09-20-2024 Eosinophils/100 WBC (Bld) 1.5 % 0-5 [facility] Erythrocyte distribution wid th ratioOrdered By: ELIAZAR Olivas on 09-20-2024 Erythrocyte distribution width (RBC) [Ratio] 14.1 % 11.6-14.6 [facility] Erythrocyte distribution wid th standard deviationOrdered By: ELIAZAR Olivas on 09-20-2024 Erythrocyte distribution width (RBC) [Ratio] 48.0 fl High 35.1-43.9 [facility] Hematocrit Auto (Bld) [Volum e fraction]Ordered By: ELIAZAR Olivas on 09-20-2024 Hematocrit (Bld) [Volume fraction] 34.8 % Low 40-54 [facility] Hemoglobin measurementOrdere d By: ELIAZAR Olivas on 09-20-2024 Hemoglobin (Bld) [Mass/Vol] 11.1 g/dL Low 13.0-16.5 [facility] Immature granulocytes/100 WB C Auto (Bld)Ordered By: ELIAZAR Olivas on 09-20-2024 Immature granulocytes/100 WBC (Bld) 0.800 % 0.0-0.9 [facility] Comment on above: IG% - Immature Granu locytes (promyelocytes, myelocytes and metamyelocytes) > 1% indicates that a LEFT SHIFT is Present. L503.7505on 09-20-2024 Natriuretic peptide B (Bld) [Mass/Vol] 84 pg/mL Normal <=1800 [facility] Comment on above: Result Comment: Hear t Failure Unlikely: < 300 pg/mLHeart Failure Likely< 50 Years: > 450 pg/mL50-75 Years: > 900 pg/mL>75 Years: > 1800 pg/mL Performed By: #### L 503.7505, L100.0100 ####[facility] [address] [place], [address] MCV (mean corpuscular volume ) determinationOrdered By: ELIAZAR Olivas on 09-20-2024 MCV (RBC) [Entitic vol] 92.1 fL 80-94 [facility] Mean corpuscular hemoglobin (MCH) determinationOrdered By: ELIAZAR Olivas on 09-20-2024 MCH (RBC) [Entitic mass] 29.4 pg 27.0-32.0 [facility] Mean corpuscular hemoglobin concentration (MCHC) determinationOrdered By: ELIAZAR Olivas on 09-20-2024 MCHC (RBC) [Mass/Vol] 31.9 g/dL Low 32-36 [facility] Mean platelet volume determi nationOrdered By: ELIAZAR Olivas on 09-20-2024 Platelet mean volume (Bld) [Entitic vol] 12.6 fL High 6.2-12.0 [facility] Monocyte percentageOrdered B y: ELIAZAR Olivas on 09-20-2024 Monocytes/100 WBC (Bld) 11.1 % High 0-10 [facility] Natriuretic peptide.B prohor efrem N-Terminal [Mass/volume] in Serum or PlasmaOrdered By: ELIAZAR Olivas on 09-20-2024 Natriuretic peptide.B prohormone N-Terminal [Mass/Vol] 84 pg/mL <1800 [facility] Comment on above: Heart Failure Unlike ly: < 300 pg/mLHeart Failure Likely< 50 Years: > 450 pg/mL50-75 Years: > 900 pg/mL>75 Years: > 1800 pg/mL Neutrophil percentageOrdered By: ELIAZAR Olivas on 09-20-2024 Neutrophils/100 WBC (Bld) 70.8 % High 47-70 [facility] Nucleated red blood cell per centageOrdered By: ELIAZAR Olivas on 09-20-2024 Nucleated RBC/100 WBC (Bld) [Ratio] 0 % 0-5 [facility] Platelet countOrdered By: ELIAZAR Olivas on 09-20-2024 Platelets (Bld) [#/Vol] 166 10*3/uL 150-450 [facility] Pulmonary Visit Reporton Pulmonary Visit Report Normal [facility] RBC Auto (Bld) [#/Vol]Ordere d By: ELIAZAR Olivas on 09-20-2024 RBC (Bld) [#/Vol] 3.78 10*6/uL Low 4.6-6.2 [facility] White blood cell (WBC) count Ordered By: ELIAZAR Olivas on 09-20-2024 WBC (Bld) [#/Vol] 9.3 10*3/uL 4.4-11.0 [facility] 6 Minute Walk Teston 025 6 Minute Walk Test Normal [facility] Pulmonary Visit Reporton Pulmonary Visit Report Normal [facility] BUN/creatinine ratioOrdered By: Marycarmen Rodriguez on 06-30-2024 Urea nitrogen/Creatinine [Mass ratio] 17.4 mg/mg 10-20 [facility] Basic Metabolic Profile (BMP )on 06-30-2024 Anion gap [Moles/Vol] 11 mmol/L Normal 5-15 [facility] Comment on above: Performed By: #### L 500.2500 ####[facility] [address] [place], [address] BUN/CRE 17.4 RATIO Normal - [facility] Comment on above: Performed By: #### L 500.2500 ####[facility] [address] [place], [address] Calcium [Mass/Vol] 9.7 mg/dL Normal 7.6-11.0 [facility] Comment on above: Performed By: #### L 500.2500 ####[facility] [address] [place], [address] Chloride [Moles/Vol] 105 mmol/L Normal 96-108 [facility] Comment on above: Performed By: #### L 500.2500 ####[facility] [address] [place], [address] CO2 [Moles/Vol] 25.3 mmol/L Normal 22.0-29.0 [facility] Comment on above: Performed By: #### L 500.2500 ####[facility] [address] [place], [address] Creatinine [Mass/Vol] 1.80 mg/dL High 0.70-1.20 [facility] Comment on above: Performed By: #### L 500.2500 ####[facility] [address] [place], [address] GFR/1.73 sq M.predicted among non-blacks MDRD (S/P/Bld) [Vol rate/Area] 38 mL/min/{1.73_m2} Low >60 [facility] Comment on above: Result Comment: mL/m in/1.73m2 CKD-EPI Creatinine Equation (2020) Performed By: #### L 500.2500 ####[facility] [address] [place], [address] Glucose [Mass/Vol] 112 mg/dL High 70-99 [facility] Comment on above: Performed By: #### L 500.2500 ####[facility] [address] [place], [address] Potassium [Moles/Vol] 4.8 mmol/L Normal 3.3-5.1 [facility] Comment on above: Performed By: #### L 500.2500 ####[facility] [address] [place], [address] Sodium [Moles/Vol] 141 mmol/L Normal 133-145 [facility] Comment on above: Performed By: #### L 500.2500 ####[facility] [address] [place], [address] Urea nitrogen [Mass/Vol] 31 mg/dL High 4-19 [facility] Comment on above: Performed By: #### L 500.2288 ####[facility] [address] [place], [address] Carbon dioxide measurementOr dered By: Marycarmen Rodriguez on 06-30-2024 CO2 [Moles/Vol] 25.3 mmol/L 22.0-29.0 [facility] Chloride measurementOrdered By: Marycarmen Rodriguez on 06-30-2024 Chloride [Moles/Vol] 105 mmol/L 96-108 [facility] GFR/1.73 sq M.predicted ana lilia g non-blacks MDRD (S/P/Bld) [Vol rate/Area]Ordered By: Marycarmen Rodriguez on 06-30-2024 Estimated GFR (MDRD) Non-Af Amer 38 Low >60 [facility] Comment on above: mL/min/1.73m2 CKD-EP I Creatinine Equation (2020) Glomerular filtration rate ( GFR) estimation/1.73 sq m using serum, plasma, or whole bOrdered By: Marycarmen Rodriguez on 06-30-2024 GFR/1.73 sq M.predicted among non-blacks MDRD (S/P/Bld) [Vol rate/Area] 38 mL/min/{1.73_m2} Low >60 [facility] Comment on above: mL/min/1.73m2 CKD-EP I Creatinine Equation (2020) Serum creatinine measurement (mass/volume)Ordered By: Marycarmen Rodriguez on 06-30-2024 Creatinine [Mass/Vol] 1.80 mg/dL High 0.70-1.20 [facility] Serum glucose measurement (m ass/volume)Ordered By: Marycarmen Rodriguez on 06-30-2024 Glucose [Mass/Vol] 112 mg/dL High 70-99 [facility] Serum or plasma anion gap de termination (moles/volume)Ordered By: Marycarmen Rodriguez on 06-30-2024 Anion gap [Moles/Vol] 11 mmol/L 5-15 [facility] Serum or plasma calcium francine urement (mass/volume)Ordered By: Marycarmen Rodriguez on 02-28-2025 Calcium [Mass/Vol] 9.7 mg/dL 7.6-11.0 [facility] Serum or plasma potassium me asurementOrdered By: Marycarmen Rodriguez on 06-30-2024 Potassium [Moles/Vol] 4.8 mmol/L 3.3-5.1 [facility] Serum or plasma sodium measu rement (moles/volume)Ordered By: Marycarmen Rodriguez on 06-30-2024 Sodium [Moles/Vol] 141 mmol/L 133-145 [facility] Serum or plasma urea nitroge n measurement (mass/volume)Ordered By: Marycarmen Rodriguez on 06-30-2024 Urea nitrogen [Mass/Vol] 31 mg/dL High 4-19 [facility] Absolute neutrophil countOrd ered By: Gustabo Pérez on 04-17-2024 Neutrophils (Bld) [#/Vol] 6.0 10*3/uL 2.0-7.7 [facility] BNP (brain natriuretic pepti de measurement)Ordered By: Gustabo Pérez on 04-17-2024 Natriuretic peptide B (Bld) [Mass/Vol] 37.2 pg/mL 0-100 [facility] BNP,B-Type NATRIURETIC PEPTI Sharon 04-17-2024 Natriuretic peptide B (Bld) [Mass/Vol] 37.2 pg/mL Normal 0-100 [facility] Comment on above: Performed By: #### L 500.2500, L100.0100, L503.6620 ####[facility] [address] [place], [place], [address] Basic Metabolic Profile (BMP )on 04-17-2024 BUN/CRE 11.2 RATIO Normal 10-20 [facility] Comment on above: Performed By: #### L 500.2500, L100.0100, L503.6620 ####[facility] [address] [place], [address] CA,Total 9.0 mg/dL Normal 8.5-10.1 [facility] Comment on above: Performed By: #### L 500.2500, L100.0100, L503.6620 ####[facility] [address] [place], [address] Chloride [Moles/Vol] 107 mmol/L Normal 98-107 [facility] Comment on above: Performed By: #### L 500.2500, L100.0100, L503.6620 ####[facility] [address] [place], [address] CO2 [Moles/Vol] 27.0 mmol/L Normal 21.0-32.0 [facility] Comment on above: Performed By: #### L 500.2500, L100.0100, L503.6620 ####[facility] [address] [place], [address] Creatinine [Mass/Vol] 1.79 mg/dL High 0.70-1.30 [facility] Comment on above: Result Comment: The validity of the calculated GFR GFRAA in patients over70 years has not been determined. Clinical correlation isessential. Performed By: #### L 500.2500, L100.0100, L503.6620 ####[facility] [address] [place], [address] EST GFR - AA 47 mL/min Low >60 [facility] Comment on above: Result Comment: Afri can Serbian GFR Calc Performed By: #### L 500.2500, L100.0100, L503.6620 ####[facility] [address] [place], [address] GAP 4 Low 5-15 [facility] Comment on above: Performed By: #### L 500.2500, L100.0100, L503.6620 ####[facility] [address] [place], [address] GFR/1.73 sq M.predicted among non-blacks MDRD (S/P/Bld) [Vol rate/Area] 39 mL/min/{1.73_m2} Low >60 [facility] Comment on above: Result Comment: Non- GFR Calc Performed By: #### L 500.2500, L100.0100, L503.6620 ####[facility] [address] [place], [address] Glucose [Mass/Vol] 228 mg/dL High 74-106 [facility] Comment on above: Result Comment: Gluc ose result greater than or equal to 200 mg/dLsuggests DIABETES MELLITUS per A.D.A. criteria. Performed By: #### L 500.2500, L100.0100, L503.6620 ####[facility] [address] [place], [address] Potassium [Moles/Vol] 4.8 mmol/L Normal 3.5-5.1 [facility] Comment on above: Performed By: #### L 500.2500, L100.0100, L503.6620 ####[facility] [address] [place], [address] Sodium [Moles/Vol] 138 mmol/L Normal 136-145 [facility] Comment on above: Performed By: #### L 500.2500, L100.0100, L503.6620 ####[facility] [address] [place], [address] Urea nitrogen [Mass/Vol] 20 mg/dL High 7-18 [facility] Comment on above: Performed By: #### L 500.2500, L100.0100, L503.6620 ####[facility] [address] [place], [address] Basophil percentageOrdered B y: Gustabo Pérez on 04-17-2024 Basophils/100 WBC (Bld) 0.5 % 0- [facility] Blood urea nitrogen (BUN)/cr eatinine ratioOrdered By: Gustabo Pérez on 04-17-2024 Urea nitrogen/Creatinine [Mass ratio] 11.2 mg/mg 10-20 [facility] CBC W/Diff, Automatedon 04-02 Absolute Lymph 1.29 X10 3/uL Normal 0.83-4.51 [facility] Comment on above: Performed By: #### L 500.2500, L100.0100, L503.6620 ####[facility] [address] [place], [address] Absolute Neut 6.0 X10 3/uL Normal 2.0-7.7 [facility] Comment on above: Performed By: #### L 500.2500, L100.0100, L503.6620 ####[facility] [address] [place], [address] Basophils/100 WBC (Bld) 0.5 % Normal 0-1 [facility] Comment on above: Performed By: #### L 500.2500, L100.0100, L503.6620 ####[facility] [address] [place], [address] Eosinophils/100 WBC (Bld) 1.2 % Normal 0-5 [facility] Comment on above: Performed By: #### L 500.2500, L100.0100, L503.6620 ####[facility] [address] [place], [address] Erythrocyte distribution width (RBC) [Ratio] 13.9 % Normal 11.6-14.6 [facility] Comment on above: Performed By: #### L 500.2500, L100.0100, L503.6620 ####[facility] [address] [place], [address] Hematocrit (Bld) [Volume fraction] 41.0 % Normal 40-54 [facility] Comment on above: Performed By: #### L 500.2500, L100.0100, L503.6620 ####[facility] [address] [place], [address] Hemoglobin (Bld) [Mass/Vol] 13.2 g/dL Normal 13.0-16.5 [facility] Comment on above: Performed By: #### L 500.2500, L100.0100, L503.6620 ####[facility] [address] [place], [address] IG% 0.600 Normal 0.0-0.9 [facility] Comment on above: Result Comment: IG% - Immature Granulocytes (promyelocytes, myelocytes andmetamyelocytes) > 1% indicates that a LEFT SHIFT is Present. Performed By: #### L 500.2500, L100.0100, L503.6620 ####[facility] [address] [place], [address] Lymphocytes/100 WBC (Bld) 15.7 % Low 19-41 [facility] Comment on above: Performed By: #### L 500.2500, L100.0100, L503.6620 ####[facility] [address] [place], [address] MCH (RBC) [Entitic mass] 29.2 pg Normal 27.0-32.0 [facility] Comment on above: Performed By: #### L 500.2500, L100.0100, L503.6620 ####[facility] [address] [place], [address] MCHC (RBC) [Mass/Vol] 32.2 g/dL Normal 32-36 [facility] Comment on above: Performed By: #### L 500.2500, L100.0100, L503.6620 ####[facility] [address] [place], [address] MCV (RBC) [Entitic vol] 90.7 fL Normal 80-94 [facility] Comment on above: Performed By: #### L 500.2500, L100.0100, L503.6620 ####[facility] [address] [place], [address] Monocytes/100 WBC (Bld) 8.5 % Normal 0-10 [facility] Comment on above: Performed By: #### L 500.2500, L100.0100, L503.6620 ####[facility] [address] [place], [address] Neutrophils/100 WBC (Bld) 73.5 % High 47-70 [facility] Comment on above: Performed By: #### L 500.2500, L100.0100, L503.6620 ####[facility] [address] [place], [address] Nucleated RBC (Bld) [#/Vol] 0 10*3/uL Normal 0-5 [facility] Comment on above: Performed By: #### L 500.2500, L100.0100, L503.6620 ####[facility] [address] [place], [address] Platelet mean volume (Bld) [Entitic vol] 12.3 fL High 6.2-12.0 [facility] Comment on above: Performed By: #### L 500.2500, L100.0100, L503.6620 ####[facility] [address] [place], [address] Platelets (Bld) [#/Vol] 185 10*3/uL Normal 150-450 [facility] Comment on above: Performed By: #### L 500.2500, L100.0100, L503.6620 ####[facility] [address] [place], [address] RBC (Bld) [#/Vol] 4.52 10*6/uL Low 4.6-6.2 [facility] Comment on above: Performed By: #### L 500.2500, L100.0100, L503.6620 ####[facility] [address] [place], [address] RDW SD 46.4 fl High 35.1-43.9 [facility] Comment on above: Performed By: #### L 500.2500, L100.0100, L503.6620 ####[facility] [address] [place], [address] WBC (Bld) [#/Vol] 8.2 10*3/uL Normal 4.4-11.0 [facility] Comment on above: Performed By: #### L 500.2500, L100.0100, L503.6620 ####[facility] [address] [place], [address] Carbon dioxide measurementOr dered By: Gustabo Pérez on 04-17-2024 CO2 [Moles/Vol] 27.0 mmol/L 21.0-32.0 [facility] Cardiology Visit Reporton Cardiology Visit Report Normal [facility] Chloride measurementOrdered By: Gustabo Pérez on 04-17-2024 Chloride [Moles/Vol] 107 mmol/L 98-107 [facility] Eosinophil percentageOrdered By: Gustabo Pérez on 04-17-2024 Eosinophils/100 WBC (Bld) 1.2 % 0-5 [facility] Erythrocyte distribution wid th ratioOrdered By: Gustabo Pérez on 04-17-2024 Erythrocyte distribution width (RBC) [Ratio] 13.9 % 11.6-14.6 [facility] Erythrocyte distribution wid th standard deviationOrdered By: Gustabo Pérez on 04-17-2024 Erythrocyte distribution width (RBC) [Entitic vol] 46.4 fL High 35.1-43.9 [facility] Estimated glomerular filtrat ion rate (GFR) AmericanOrdered By: Gustabo Pérez on 04-17-2024 Estimated GFR (MDRD) Amer 47 mL/min Low >60 [facility] Comment on above: GFR Calc Glomerular filtration rate ( GFR) estimationOrdered By: Gustabo Pérez on 04-17-2024 Estimated GFR (MDRD) Non-Af Amer 39 mL/min Low >60 [facility] Comment on above: Non- GFR Calc Glucose measurementOrdered B y: Gustabo Pérez on 04-17-2024 Glucose [Mass/Vol] 228 mg/dL High 74-106 [facility] Comment on above: Glucose result great er than or equal to 200 mg/dLsuggests DIABETES MELLITUS per A.D.A. criteria. Hematocrit Auto (Bld) [Volum e fraction]Ordered By: Gustabo Pérez on 04-17-2024 Hematocrit (Bld) [Volume fraction] 41.0 % 40-54 [facility] Hemoglobin measurementOrdere d By: Gustabo Pérez on 04-17-2024 Hemoglobin (Bld) [Mass/Vol] 13.2 g/dL 13.0-16.5 [facility] Immature granulocytes/100 WB C Auto (Bld)Ordered By: Gustabo Pérez on 04-17-2024 Immature granulocytes/100 WBC (Bld) 0.600 % 0.0-0.9 [facility] Comment on above: IG% - Immature Granu locytes (promyelocytes, myelocytes and metamyelocytes) > 1% indicates that a LEFT SHIFT is Present. Lymphocytes Auto (Unsp spec) [#/Vol]Ordered By: Gustabo Pérez on 04-17-2024 Lymphocytes (Bld) [#/Vol] 1.29 10*3/uL 0.83-4.51 [facility] Lymphocytes/100 WBC Auto (Un sp spec)Ordered By: Gustabo Pérez on 04-17-2024 Lymphocytes/100 WBC (Bld) 15.7 % Low 19-41 [facility] MCV (mean corpuscular volume ) determinationOrdered By: Gustabo Pérez on 04-17-2024 MCV (RBC) [Entitic vol] 90.7 fL 80-94 [facility] Mean corpuscular hemoglobin (MCH) determinationOrdered By: Gustabo Pérez on 04-17-2024 MCH (RBC) [Entitic mass] 29.2 pg 27.0-32.0 [facility] Mean corpuscular hemoglobin concentration (MCHC) determinationOrdered By: Gustabo Pérez on 04-17-2024 MCHC (RBC) [Mass/Vol] 32.2 g/dL 32-36 [facility] Mean platelet volume determi nationOrdered By: Gustabo Pérez on 04-17-2024 Platelet mean volume (Bld) [Entitic vol] 12.3 fL High 6.2-12.0 [facility] Monocyte percentageOrdered B y: Gustabo Pérez on 04-17-2024 Monocytes/100 WBC (Bld) 8.5 % 0-10 [facility] Neutrophil percentageOrdered By: Gustabo Pérez on 04-17-2024 Neutrophils/100 WBC (Bld) 73.5 % High 47-70 [facility] Nucleated red blood cell per centageOrdered By: Gustabo Pérez on 04-17-2024 Nucleated RBC/100 WBC (Bld) [Ratio] 0 % 0-5 [facility] Platelet countOrdered By: Lydia Pérez on 04-17-2024 Platelets (Bld) [#/Vol] 185 10*3/uL 150-450 [facility] Potassium measurementOrdered By: Gustabo Pérez on 04-17-2024 Potassium [Moles/Vol] 4.8 mmol/L 3.5-5.1 [facility] RBC Auto (Bld) [#/Vol]Ordere d By: Gustabo Pérez on 04-17-2024 RBC (Bld) [#/Vol] 4.52 10*6/uL Low 4.6-6.2 [facility] Serum anion gap measurementO rdered By: Gustabo Pérez on 04-17-2024 Anion gap [Moles/Vol] 4 mmol/L Low 5-15 [facility] Serum or plasma calcium francine urement (mass/volume)Ordered By: Gustabo Pérez on 04-17-2024 Calcium [Mass/Vol] 9.0 mg/dL 8.5-10.1 [facility] Serum or plasma creatinine m easurement (mass/volume)Ordered By: Gustabo Pérez on 04-17-2024 Creatinine [Mass/Vol] 1.79 mg/dL High 0.70-1.30 [facility] Comment on above: The validity of the calculated GFR & GFRAA in patients over 70 years has not been determined. Clinical correlation is essential. Serum or plasma urea nitroge n measurement (mass/volume)Ordered By: Gustabo Pérez on 04-17-2024 Urea nitrogen [Mass/Vol] 20 mg/dL High 7-18 [facility] Sodium levelOrdered By: Gustabo Pérez on 04-17-2024 Sodium [Moles/Vol] 138 mmol/L 136-145 [facility] White blood cell (WBC) count Ordered By: Gustabo Pérez on 04-17-2024 WBC (Bld) [#/Vol] 8.2 10*3/uL 4.4-11.0 [facility] Office Visit Reporton 2023 Office Visit Report Normal [facility] Albumin to globulin ratioOrd ered By: Jose Hay on 03-23-2024 Albumin/Globulin [Mass ratio] 1.1 {ratio} 0.9-2.4 [facility] Bilirubin, totalOrdered By: Jose Hay on 03-23-2024 Bilirubin [Mass/Vol] 2.00 mg/dL High 0.20-1.00 [facility] Comment on above: For patients on eltr ombopag therapy, use of [employer] TBIL is not recommended. Blood urea nitrogen (BUN)/cr eatinine ratioOrdered By: Jose Hay on 03-23-2024 Urea nitrogen/Creatinine [Mass ratio] 18.0 mg/mg 10-20 [facility] Carbon dioxide measurementOr dered By: Jose Hay on 03-23-2024 CO2 [Moles/Vol] 28.0 mmol/L 21.0-32.0 [facility] Chloride measurementOrdered By: Jose Hay on 03-23-2024 Chloride [Moles/Vol] 104 mmol/L 98-107 [facility] Comprehensive Metabolic Prof ilon 03-23-2024 Albumin [Mass/Vol] 3.7 g/dL Normal 3.2-5.0 [facility] Comment on above: Order Comment: DR REMY ORDERED BMP AND MAGNESIUM.DR HAY ORDERED LIPID CMP TSH. RANGLE Performed By: #### L 500.4050, L501.9520, L501.5200, L500.4100 ####[facility] [address] [place], [place], [id number] Albumin/Globulin [Mass ratio] 1.1 {ratio} Normal 0.9-2.4 [facility] Comment on above: Order Comment: DR REMY ORDERED BMP AND MAGNESIUM.DR HAY ORDERED LIPID CMP TSH. RANGLE Performed By: #### L 500.4050, L501.9520, L501.5200, L500.4100 ####[facility] [address] [place], [address] ALK P 92 U/L Normal 45-117 [facility] Comment on above: Order Comment: DR REMY ORDERED BMP AND MAGNESIUM.DR HAY ORDERED LIPID CMP TSH. RANGLE Performed By: #### L 500.4050, L501.9520, L501.5200, L500.4100 ####[facility] [address] [place], [address] ALT [Catalytic activity/Vol] 52 U/L Normal 16-61 [facility] Comment on above: Order Comment: DR REMY ORDERED BMP AND MAGNESIUM.DR HAY ORDERED LIPID CMP TSH. RANGLE Performed By: #### L 500.4050, L501.9520, L501.5200, L500.4100 ####[facility] [address] [place], [address] AST [Catalytic activity/Vol] 28 U/L Normal 15-37 [facility] Comment on above: Order Comment: DR REMY ORDERED BMP AND MAGNESIUM.DR HAY ORDERED LIPID CMP TSH. RANGLE Performed By: #### L 500.4050, L501.9520, L501.5200, L500.4100 ####[facility] [address] [place], [address] Bilirubin [Mass/Vol] 2.00 mg/dL High 0.20-1.00 [facility] Comment on above: Order Comment: DR REMY ORDERED BMP AND MAGNESIUM.DR HAY ORDERED LIPID CMP TSH. RANGLE Result Comment: For patients on eltrombopag therapy, use of [employer] TBIL is not recommended. Performed By: #### L 500.4050, L501.9520, L501.5200, L500.4100 ####[facility] [address] [place], [address] BUN/CRE 18.0 RATIO Normal 10-20 [facility] Comment on above: Order Comment: DR REMY ORDERED BMP AND MAGNESIUM.DR HAY ORDERED LIPID CMP TSH. RANGLE Performed By: #### L 500.4050, L501.9520, L501.5200, L500.4100 ####[facility] [address] [place], [address] CA,Total 8.8 mg/dL Normal 8.5-10.1 [facility] Comment on above: Order Comment: DR REMY ORDERED BMP AND MAGNESIUM.DR HAY ORDERED LIPID CMP TSH. RANGLE Performed By: #### L 500.4050, L501.9520, L501.5200, L500.4100 ####[facility] [address] [place], [address] Chloride [Moles/Vol] 104 mmol/L Normal 98-107 [facility] Comment on above: Order Comment: DR REMY ORDERED BMP AND MAGNESIUM.DR HAY ORDERED LIPID CMP TSH. RANGLE Performed By: #### L 500.4050, L501.9520, L501.5200, L500.4100 ####[facility] [address] [place], [address] CO2 [Moles/Vol] 28.0 mmol/L Normal 21.0-32.0 [facility] Comment on above: Order Comment: DR REMY ORDERED BMP AND MAGNESIUM.DR HAY ORDERED LIPID CMP TSH. RANGLE Performed By: #### L 500.4050, L501.9520, L501.5200, L500.4100 ####[facility] [address] [place], [address] Creatinine [Mass/Vol] 1.67 mg/dL High 0.70-1.30 [facility] Comment on above: Order Comment: DR REMY ORDERED BMP AND MAGNESIUM.DR HAY ORDERED LIPID CMP TSH. RANGLE Result Comment: The validity of the calculated GFR GFRAA in patients over70 years has not been determined. Clinical correlation isessential. Performed By: #### L 500.4050, L501.9520, L501.5200, L500.4100 ####[facility] [address] [place], [address] EST GFR - AA 51 mL/min Low >60 [facility] Comment on above: Order Comment: DR REMY ORDERED BMP AND MAGNESIUM.DR HAY ORDERED LIPID CMP TSH. RANGLE Result Comment: Afri can Serbian GFR Calc Performed By: #### L 500.4050, L501.9520, L501.5200, L500.4100 ####[facility] [address] [place], [address] GAP 6 Normal 5-15 [facility] Comment on above: Order Comment: DR REMY ORDERED BMP AND MAGNESIUM.DR HAY ORDERED LIPID CMP TSH. RANGLE Performed By: #### L 500.4050, L501.9520, L501.5200, L500.4100 ####[facility] [address] [place], [address] GFR/1.73 sq M.predicted among non-blacks MDRD (S/P/Bld) [Vol rate/Area] 42 mL/min/{1.73_m2} Low >60 [facility] Comment on above: Order Comment: DR REMY ORDERED BMP AND MAGNESIUM.DR HAY ORDERED LIPID CMP TSH. RANGLE Result Comment: Non- GFR Calc Performed By: #### L 500.4050, L501.9520, L501.5200, L500.4100 ####[facility] [address] [place], [address] Globulin (S) [Mass/Vol] 3.3 g/dL Normal 2.2-4.2 [facility] Comment on above: Order Comment: DR REMY ORDERED BMP AND MAGNESIUM.DR HAY ORDERED LIPID CMP TSH. RANGLE Performed By: #### L 500.4050, L501.9520, L501.5200, L500.4100 ####[facility] [address] [place], [address] Glucose [Mass/Vol] 146 mg/dL High 74-106 [facility] Comment on above: Order Comment: DR REMY ORDERED BMP AND MAGNESIUM.DR HAY ORDERED LIPID CMP TSH. RANGLE Result Comment: Fast ing Glucose result greater than or equal to 126 mg/dLsuggests DIABETES MELLITUS per A.D.A. criteria. Performed By: #### L 500.4050, L501.9520, L501.5200, L500.4100 ####[facility] [address] [place], [address] Potassium [Moles/Vol] 4.4 mmol/L Normal 3.5-5.1 [facility] Comment on above: Order Comment: DR REMY ORDERED BMP AND MAGNESIUM.DR HAY ORDERED LIPID CMP TSH. RANGLE Performed By: #### L 500.4050, L501.9520, L501.5200, L500.4100 ####[facility] [address] [place], [address] Sodium [Moles/Vol] 138 mmol/L Normal 136-145 [facility] Comment on above: Order Comment: DR REMY ORDERED BMP AND MAGNESIUM.DR HAY ORDERED LIPID CMP TSH. RANGLE Performed By: #### L 500.4050, L501.9520, L501.5200, L500.4100 ####[facility] [address] [place], [address] T PROT 7.0 g/dL Normal 6.4-8.2 [facility] Comment on above: Order Comment: DR REMY ORDERED BMP AND MAGNESIUM.DR HAY ORDERED LIPID CMP TSH. RANGLE Performed By: #### L 500.4050, L501.9520, L501.5200, L500.4100 ####[facility] [address] [place], [address] Urea nitrogen [Mass/Vol] 30 mg/dL High 7-18 [facility] Comment on above: Order Comment: DR REMY ORDERED BMP AND MAGNESIUM.DR HAY ORDERED LIPID CMP TSH. RANGLE Performed By: #### L 500.4050, L501.9520, L501.5200, L500.4100 ####[facility] [address] [place], [address] Estimated glomerular filtrat ion rate (GFR) AmericanOrdered By: Jose Hay on 03-23-2024 Estimated GFR (MDRD) Amer 51 mL/min Low >60 [facility] Comment on above: GFR Calc Glomerular filtration rate ( GFR) estimationOrdered By: Jose Hay on 03-23-2024 Estimated GFR (MDRD) Non-Af Amer 42 mL/min Low >60 [facility] Comment on above: Non- GFR Calc Glucose measurementOrdered B y: Jose Hay on 03-23-2024 Glucose [Mass/Vol] 146 mg/dL High 74-106 [facility] Comment on above: Fasting Glucose resu lt greater than or equal to 126 mg/dL suggests DIABETES MELLITUS per A.D.A. criteria. High density lipoprotein (HD L) measurementOrdered By: Jose Hay on 03-23-2024 Cholesterol in HDL [Mass/Vol] 52 mg/dL >40 [facility] Comment on above: The drugs N-Acetylcy steine and Metamizole may falsely depress this assay. Reference Range HDL <40 mg/dL Low HDL Cholesterol HDL >or= 60 mg/dL High HDL Cholesterol Laboratory - Chemistry and C hemistry - challengeOrdered By: Jose Hay on 03-23-2024 AST [Catalytic activity/Vol] 28 U/L 15-37 [facility] Lipid Profileon 03-23-2024 Cholesterol [Mass/Vol] 158 mg/dL Normal 200 [facility] Comment on above: Order Comment: DR REMY ORDERED BMP AND MAGNESIUM.DR HAY ORDERED LIPID CMP TSH. RANGLE Result Comment: <200 mg/dL Desirable 200-240 mg/dL Borderline >240 mg/dL High Risk Performed By: #### L 500.4050, L501.9520, L501.5200, L500.4100 ####[facility] [address] [place], [address] Cholesterol in HDL [Mass/Vol] 52 mg/dL Normal [facility] Comment on above: Order Comment: DR REMY ORDERED BMP AND MAGNESIUM.DR HAY ORDERED LIPID CMP TSH. RANGLE Result Comment: The drugs N-Acetylcysteine and Metamizole may falselydepress this assay. Reference Range HDL <40 mg/dL Low HDL Cholesterol HDL >or= 60 mg/dL High HDL Cholesterol Performed By: #### L 500.4050, L501.9520, L501.5200, L500.4100 ####[facility] [address] [place], [address] Cholesterol in LDL [Mass/Vol] 61 mg/dL Normal 0-130 [facility] Comment on above: Order Comment: DR REMY ORDERED BMP AND MAGNESIUM.DR HAY ORDERED LIPID CMP TSH. RANGLE Performed By: #### L 500.4050, L501.9520, L501.5200, L500.4100 ####[facility] [address] [place], [address] Cholesterol in VLDL [Mass/Vol] 45 mg/dL High 5-40 [facility] Comment on above: Order Comment: DR REMY ORDERED BMP AND MAGNESIUM.DR HAY ORDERED LIPID CMP TSH. RANGLE Performed By: #### L 500.4050, L501.9520, L501.5200, L500.4100 ####[facility] [address] [place], [address] Triglyceride [Mass/Vol] 225 mg/dL High [facility] Comment on above: Order Comment: DR REMY ORDERED BMP AND MAGNESIUM.DR HAY ORDERED LIPID CMP TSH. RANGLE Result Comment: The drugs N-Acetylcysteine and Metamizole may falselydepress this assay.Serum Triglycerides Reference Interval Normal <150 mg/dL Borderline high 150 - 199 mg/dL High 200 - 499 mg/dL Very High > or = 500 mg/dL Performed By: #### L 500.4050, L501.9520, L501.5200, L500.4100 ####[facility] [address] [place], [address] Low density lipoprotein (LDL ) cholesterol measurementOrdered By: Jose Hay on 03-23-2024 Cholesterol in LDL [Mass/Vol] 61 mg/dL 0-130 [facility] Magnesiumon 03-23-2024 Magnesium [Mass/Vol] 2.1 mg/dL Normal 1.6-2.6 [facility] Comment on above: Order Comment: DR REMY ORDERED BMP AND MAGNESIUM.DR HAY ORDERED LIPID CMP TSH. RANGLE Performed By: #### L 500.4050, L501.9520, L501.5200, L500.4100 ####[facility] [address] [place], [place], [address] Magnesium measurementOrdered By: Jose Hay on 03-23-2024 Magnesium [Mass/Vol] 2.1 mg/dL 1.6-2.6 [facility] Potassium measurementOrdered By: Jose Hay on 03-23-2024 Potassium [Moles/Vol] 4.4 mmol/L 3.5-5.1 [facility] Serum anion gap measurementO rdered By: Jose Hay on 03-23-2024 Anion gap [Moles/Vol] 6 mmol/L 5-15 [facility] Serum globulin measurementOr dered By: Jose Hay on 03-23-2024 Globulin (S) [Mass/Vol] 3.3 g/dL 2.2-4.2 [facility] Serum or plasma alanine guerrero otransferase (ALT) measurementOrdered By: Jose Hay on 03-23-2024 ALT [Catalytic activity/Vol] 52 U/L 16-61 [facility] Serum or plasma albumin francine urement (mass/volume)Ordered By: Jose Hay on 03-23-2024 Albumin [Mass/Vol] 3.7 g/dL 3.2-5.0 [facility] Serum or plasma alkaline bell sphatase measurementOrdered By: Jose Hay on 03-23-2024 ALP [Catalytic activity/Vol] 92 U/L 45-117 [facility] Serum or plasma calcium francine urement (mass/volume)Ordered By: Jose Hay on 03-23-2024 Calcium [Mass/Vol] 8.8 mg/dL 8.5-10.1 [facility] Serum or plasma cholesterol measurement (mass/volume)Ordered By: Jose Hay on 03-23-2024 Cholesterol [Mass/Vol] 158 mg/dL <200 [facility] Comment on above: <200 mg/dL Desirable 200-240 mg/dL Borderline >240 mg/dL High Risk Serum or plasma creatinine m easurement (mass/volume)Ordered By: Jose Hay on 03-23-2024 Creatinine [Mass/Vol] 1.67 mg/dL High 0.70-1.30 [facility] Comment on above: The validity of the calculated GFR & GFRAA in patients over 70 years has not been determined. Clinical correlation is essential. Serum or plasma urea nitroge n measurement (mass/volume)Ordered By: Jose Hay on 03-23-2024 Urea nitrogen [Mass/Vol] 30 mg/dL High 7-18 [facility] Sodium levelOrdered By: Ernst Hay on 03-23-2024 Sodium [Moles/Vol] 138 mmol/L 136-145 [facility] TSH QnOrdered By: Jose rodriguez on 03-23-2024 Thyroid Stimulating Hormone (TSH) 5.340 uIU/mL High 0.358-3.74 0 [facility] Thyroid Stim Hormone (TSH)on 03-23-2024 TSH 5.340 uIU/mL High 0.358-3.74 0 [facility] Comment on above: Order Comment: DR REMY ORDERED BMP AND MAGNESIUM.DR HAY ORDERED LIPID CMP TSH. RANGLE Performed By: #### L 500.4050, L501.9581, L501.5200, L500.4100 ####[facility] [address] [place], [address] Total proteinOrdered By: Emmanuel Hay on 03-23-2024 Protein [Mass/Vol] 7.0 g/dL 6.4-8.2 [facility] Triglycerides measurementOrd ered By: Jose Hay on 03-23-2024 Triglyceride [Mass/Vol] 225 mg/dL High <199 [facility] Comment on above: The drugs N-Acetylcy steine and Metamizole may falsely depress this assay.Serum Triglycerides Reference Interval Normal <150 mg/dL Borderline high 150 - 199 mg/dL High 200 - 499 mg/dL Very High > or = 500 mg/dL Very low density lipoprotein (VLDL) cholesterol measurementOrdered By: Jose Hay on 03-23-2024 VLDL Cholesterol 45 mg/dL High 5-40 [facility] Cardiology Visit Reporton Cardiology Visit Report Normal [facility] Basophil percentageOrdered B y: Marycarmen Rodriguez on 05-07-2023 Chloride [Moles/Vol] 103 mmol/L 98-107 [facility] Glucose [Mass/Vol] 172 mg/dL 74-106 [facility] Comment on above: Fasting Glucose resu lt greater than or equal to 126 mg/dL suggests DIABETES MELLITUS per A.D.A. criteria. Potassium [Moles/Vol] 3.7 mmol/L 3.5-5.1 [facility] Sodium [Moles/Vol] 138 mmol/L 136-145 [facility] Laboratory - Chemistry and C hemistry - challengeOrdered By: Marycarmen Rodriguez on 05-07-2023 CO2 [Moles/Vol] 27.0 mmol/L 21.0-32.0 [facility] Urea nitrogen/Creatinine [Mass ratio] 13.9 mg/mg 10-20 [facility] No Panel InformationOrdered By: Marycarmen Rodriguez on 05-07-2023 Estimated GFR (MDRD) Amer 74 mL/min >60 [facility] Comment on above: GFR Calc Estimated GFR (MDRD) Non-Af Amer 61 mL/min >60 [facility] Comment on above: Non- GFR Calc Serum or plasma calcium francine urement (mass/volume)Ordered By: Marycarmen Rodriguez on 05-07-2023 Calcium [Mass/Vol] 8.6 mg/dL 8.5-10.1 [facility] Serum or plasma creatinine m easurement (mass/volume)Ordered By: Marycarmen Rodriguez on 05-07-2023 Creatinine [Mass/Vol] 1.22 mg/dL 0.70-1.30 [facility] Comment on above: The validity of the calculated GFR & GFRAA in patients over 70 years has not been determined. Clinical correlation is essential. Serum or plasma urea nitroge n measurement (mass/volume)Ordered By: Marycarmen Rodriguez on 05-07-2023 Urea nitrogen [Mass/Vol] 17 mg/dL 7-18 [facility] Thin prep Papanicolaou smear with manual screeningOrdered By: Marycarmen Rodriguez on 05-07-2023 Thin prep Papanicolaou smear with manual screening 8 5-15 [facility] Basophil percentageOrdered B y: Jose Hay on 12-15-2022 Chloride [Moles/Vol] 110 mmol/L 98-107 [facility] Glucose [Mass/Vol] 121 mg/dL 74-106 [facility] Comment on above: Fasting Glucose resu lt from 100 to 125 mg/dL suggests IMPAIRED HOMEOSTASIS per A.D.A. criteria. Potassium [Moles/Vol] 4.0 mmol/L 3.5-5.1 [facility] Sodium [Moles/Vol] 139 mmol/L 136-145 [facility] WBC (Bld) [#/Vol] 7.3 10*3/uL 4.4-11.0 [facility] Blood erythrocytes count (nu mber/volume)Ordered By: Jose Hay on 12-15-2022 RBC (Bld) [#/Vol] 5.18 10*6/uL 4.6-6.2 [facility] Blood hemoglobin measurement (mass/volume)Ordered By: Jose Hay on 12-15-2022 Hemoglobin (Bld) [Mass/Vol] 15.2 g/dL 13.0-16.5 [facility] Blood platelet mean volumeOr dered By: Jose Hay on 12-15-2022 Platelet mean volume (Bld) [Entitic vol] 12.2 fL 6.2-12.0 [facility] Determination of erythrocyte mean corpuscular volume (MCV)Ordered By: Jose Hay on 12-15-2022 MCV (RBC) [Entitic vol] 90.2 fL 80-94 [facility] Hematocrit Auto (Bld) [Volum e fraction]Ordered By: Jose Hay on 12-15-2022 Hematocrit (Bld) [Volume fraction] 46.7 % 40-54 [facility] Laboratory - Chemistry and C hemistry - challengeOrdered By: Jose Hay on 12-15-2022 CO2 [Moles/Vol] 23.0 mmol/L 21.0-32.0 [facility] Natriuretic peptide B (Bld) [Mass/Vol] 38.1 pg/mL 0-100 [facility] Urea nitrogen/Creatinine [Mass ratio] 13.5 mg/mg 10-20 [facility] Laboratory - Hematology and Cell countsOrdered By: Jose Hay on 12-15-2022 Erythrocyte distribution width (RBC) [Entitic vol] 47.5 fL 35.1-43.9 [facility] Erythrocyte distribution width (RBC) [Ratio] 14.4 % 11.6-14.6 [facility] MCH (RBC) [Entitic mass] 29.3 pg 27.0-32.0 [facility] MCHC Auto (RBC) [Mass/Vol]Or dered By: Jose Hay on 12-15-2022 MCHC (RBC) [Mass/Vol] 32.5 g/dL 32-36 [facility] No Panel InformationOrdered By: Jose Hay on 12-15-2022 Estimated GFR (MDRD) Amer 83 mL/min >60 [facility] Comment on above: GFR Calc Estimated GFR (MDRD) Non-Af Amer 68 mL/min >60 [facility] Comment on above: Non- GFR Calc Platelets bldOrdered By: Emmanuel Hay on 12-15-2022 Platelets (Bld) [#/Vol] 143 10*3/uL 150-450 [facility] Serum or plasma calcium francine urement (mass/volume)Ordered By: Jose Hay on 12-15-2022 Calcium [Mass/Vol] 8.8 mg/dL 8.5-10.1 [facility] Serum or plasma creatinine m easurement (mass/volume)Ordered By: Jose Hay on 12-15-2022 Creatinine [Mass/Vol] 1.11 mg/dL 0.70-1.30 [facility] Comment on above: The validity of the calculated GFR & GFRAA in patients over 70 years has not been determined. Clinical correlation is essential. Serum or plasma urea nitroge n measurement (mass/volume)Ordered By: Jose Hay on 12-15-2022 Urea nitrogen [Mass/Vol] 15 mg/dL 7-18 [facility] Thin prep Papanicolaou smear with manual screeningOrdered By: Jose Hay on 12-15-2022 Thin prep Papanicolaou smear with manual screening 6 5-15 [facility] Absolute lymphocyte countOrd ered By: Luz Elena Mckeon on 10-13-2022 Lymphocytes Auto (Unsp spec) [#/Vol] 1.21 10*3/uL 0.83-4.51 [facility] Basophil percentageOrdered B y: Luz Elena Mckeon on 10-13-2022 Basophils/100 WBC (Bld) 0.5 % 0-1 [facility] Chloride [Moles/Vol] 106 mmol/L 98-107 [facility] Eosinophils/100 WBC (Bld) 1.4 % 0-5 [facility] Glucose [Mass/Vol] 277 mg/dL 74-106 [facility] Comment on above: Glucose result great er than or equal to 200 mg/dLsuggests DIABETES MELLITUS per A.D.A. criteria. Neutrophils (Bld) [#/Vol] 4.0 10*3/uL 2.0-7.7 [facility] Neutrophils/100 WBC (Bld) 68.5 % 47-70 [facility] Potassium [Moles/Vol] 4.1 mmol/L 3.5-5.1 [facility] Sodium [Moles/Vol] 139 mmol/L 136-145 [facility] WBC (Bld) [#/Vol] 5.8 10*3/uL 4.4-11.0 [facility] Blood erythrocytes count (nu mber/volume)Ordered By: Luz Elena Mckeon on 10-13-2022 RBC (Bld) [#/Vol] 4.66 10*6/uL 4.6-6.2 [facility] Blood hemoglobin measurement (mass/volume)Ordered By: Luz Elena Mckeon on 10-13-2022 Hemoglobin (Bld) [Mass/Vol] 13.6 g/dL 13.0-16.5 [facility] Blood lymphocytes/100 leukoc ytesOrdered By: Luz Elena Mckeon on 10-13-2022 Lymphocytes/100 WBC (Bld) 20.7 % 19-41 [facility] Blood monocytes/100 leukocyt esOrdered By: Luz Elena Mckeon on 10-13-2022 Monocytes/100 WBC (Bld) 8.6 % 0-10 [facility] Blood platelet mean volumeOr dered By: Luz Elena Mckeon on 10-13-2022 Platelet mean volume (Bld) [Entitic vol] 12.6 fL 6.2-12.0 [facility] Determination of erythrocyte mean corpuscular volume (MCV)Ordered By: Luz Elena Mckeon on 10-13-2022 MCV (RBC) [Entitic vol] 89.5 fL 80-94 [facility] Hematocrit Auto (Bld) [Volum e fraction]Ordered By: Luz Elena Mckeon on 10-13-2022 Hematocrit (Bld) [Volume fraction] 41.7 % 40-54 [facility] Laboratory - Chemistry and C hemistry - challengeOrdered By: Luz Elena Mckeon on 10-13-2022 CO2 [Moles/Vol] 27.0 mmol/L 21.0-32.0 [facility] Free T4 [Mass/Vol] 0.77 ng/dL 0.76-1.46 [facility] Magnesium [Mass/Vol] 2.1 mg/dL 1.6-2.6 [facility] Natriuretic peptide B (Bld) [Mass/Vol] 47.2 pg/mL 0-100 [facility] Urea nitrogen/Creatinine [Mass ratio] 17.2 mg/mg 10-20 [facility] Laboratory - Hematology and Cell countsOrdered By: Luz Elena Mckeon on 10-13-2022 Erythrocyte distribution width (RBC) [Entitic vol] 46.1 fL 35.1-43.9 [facility] Erythrocyte distribution width (RBC) [Ratio] 14.1 % 11.6-14.6 [facility] Immature granulocytes/100 WBC (Bld) 0.300 % 0.0-0.9 [facility] Comment on above: IG% - Immature Granu locytes (promyelocytes, myelocytes and metamyelocytes) > 1% indicates that a LEFT SHIFT is Present. MCH (RBC) [Entitic mass] 29.2 pg 27.0-32.0 [facility] Nucleated RBC/100 WBC (Bld) [Ratio] 0 % 0-5 [facility] MCHC Auto (RBC) [Mass/Vol]Or dered By: Luz Elena Mckeon on 10-13-2022 MCHC (RBC) [Mass/Vol] 32.6 g/dL 32-36 [facility] No Panel InformationOrdered By: Luz Elena Mckeon on 10-13-2022 Estimated GFR (MDRD) Amer 61 mL/min >60 [facility] Comment on above: GFR Calc Estimated GFR (MDRD) Non-Af Amer 50 mL/min >60 [facility] Comment on above: Non- GFR Calc Free Triiodothyronine (T3) pg/dL 2.7 pg/mL 2.18-3.98 [facility] Thyroid Stimulating Hormone (TSH) 4.12 uIU/mL 0.358-3.74 [facility] Platelets bldOrdered By: Loco Mckeon on 10-13-2022 Platelets (Bld) [#/Vol] 126 10*3/uL 150-450 [facility] Serum or plasma calcium francine urement (mass/volume)Ordered By: Luz Elena Mckeon on 10-13-2022 Calcium [Mass/Vol] 8.5 mg/dL 8.5-10.1 [facility] Serum or plasma creatinine m easurement (mass/volume)Ordered By: Luz Elena Mckeon on 10-13-2022 Creatinine [Mass/Vol] 1.45 mg/dL 0.70-1.30 [facility] Comment on above: The validity of the calculated GFR & GFRAA in patients over 70 years has not been determined. Clinical correlation is essential. Serum or plasma urea nitroge n measurement (mass/volume)Ordered By: Luz Elena Mckeon on 10-13-2022 Urea nitrogen [Mass/Vol] 25 mg/dL 7-18 [facility] Thin prep Papanicolaou smear with manual screeningOrdered By: Luz Elena Mckeon on 10-13-2022 Thin prep Papanicolaou smear with manual screening 6 5-15 [facility] COVID-19 virus antigen assay Ordered By: Shaan Santos on 09-21-2022 SARS-CoV-2 (COVID-19) Ag IA.rapid Ql (Resp) [facility] COVID-19 virus antigen assay Ordered By: Dr. Santos on 09-21-2022 SARS-CoV-2 (COVID-19) Ag IA.rapid Ql (Resp) [facility] Glucose Glucometer (BldC) [M ass/Vol]Ordered By: Dr. Santos on 09-21-2022 Glucose [Mass/Vol] 193 mg/dL 74-106 [facility] Comment on above: MANAGEMENT OF PATIEN T CARE PER NURSING PROTOCOL Absolute lymphocyte countOrd ered By: Dr. Leo on 09-18-2022 Lymphocytes Auto (Unsp spec) [#/Vol] 1.83 10*3/uL 0.83-4.51 [facility] Basophil percentageOrdered B y: Dr. Leo on 09-18-2022 Basophils/100 WBC (Bld) 0.3 % 0-1 [facility] Bilirubin [Mass/Vol] 1.20 mg/dL 0.20-1.00 [facility] Comment on above: For patients on eltr ombopag therapy, use of Dimension [employer] TBIL is not recommended. Chloride [Moles/Vol] 108 mmol/L 98-107 [facility] Cholesterol [Mass/Vol] 114 mg/dL <200 [facility] Comment on above: <200 mg/dL Desirable 200-240 mg/dL Borderline >240 mg/dL High Risk Eosinophils/100 WBC (Bld) 2.0 % 0-5 [facility] Glucose [Mass/Vol] 87 mg/dL 74-106 [facility] Neutrophils (Bld) [#/Vol] 4.3 10*3/uL 2.0-7.7 [facility] Neutrophils/100 WBC (Bld) 60.9 % 47-70 [facility] Potassium [Moles/Vol] 3.5 mmol/L 3.5-5.1 [facility] Protein [Mass/Vol] 5.9 g/dL 6.4-8.2 [facility] Sodium [Moles/Vol] 142 mmol/L 136-145 [facility] Triglyceride [Mass/Vol] 174 mg/dL <199 [facility] Comment on above: The drugs N-Acetylcy steine and Metamizole may falsely depress this assay.Serum Triglycerides Reference Interval Normal <150 mg/dL Borderline high 150 - 199 mg/dL High 200 - 499 mg/dL Very High > or = 500 mg/dL WBC (Bld) [#/Vol] 7.0 10*3/uL 4.4-11.0 [facility] Blood erythrocytes count (nu mber/volume)Ordered By: Dr. Leo on 09-18-2022 RBC (Bld) [#/Vol] 4.64 10*6/uL 4.6-6.2 [facility] Blood hemoglobin measurement (mass/volume)Ordered By: Dr. Leo on 09-18-2022 Hemoglobin (Bld) [Mass/Vol] 13.2 g/dL 13.0-16.5 [facility] Blood lymphocytes/100 leukoc ytesOrdered By: Dr. Leo on 09-18-2022 Lymphocytes/100 WBC (Bld) 26.1 % 19-41 [facility] Blood monocytes/100 leukocyt esOrdered By: Dr. Leo on 09-18-2022 Monocytes/100 WBC (Bld) 10.4 % 0-10 [facility] Blood platelet mean volumeOr dered By: Dr. Leo on 09-18-2022 Platelet mean volume (Bld) [Entitic vol] 12.3 fL 6.2-12.0 [facility] Determination of erythrocyte mean corpuscular volume (MCV)Ordered By: Dr. Leo on 09-18-2022 MCV (RBC) [Entitic vol] 90.1 fL 80-94 [facility] Hematocrit Auto (Bld) [Volum e fraction]Ordered By: Dr. Leo on 09-18-2022 Hematocrit (Bld) [Volume fraction] 41.8 % 40-54 [facility] Laboratory - Chemistry and C hemistry - challengeOrdered By: Dr. Leo on 09-18-2022 ALP [Catalytic activity/Vol] 113 U/L 45-117 [facility] ALT [Catalytic activity/Vol] 31 U/L 16-61 [facility] CO2 [Moles/Vol] 26.0 mmol/L 21.0-32.0 [facility] Globulin (S) [Mass/Vol] 3.0 g/dL 2.2-4.2 [facility] Urea nitrogen/Creatinine [Mass ratio] 13.4 mg/mg 10-20 [facility] Laboratory - Hematology and Cell countsOrdered By: Dr. Leo on 09-18-2022 Erythrocyte distribution width (RBC) [Entitic vol] 46.9 fL 35.1-43.9 [facility] Erythrocyte distribution width (RBC) [Ratio] 14.4 % 11.6-14.6 [facility] Immature granulocytes/100 WBC (Bld) 0.300 % 0.0-0.9 [facility] Comment on above: IG% - Immature Granu locytes (promyelocytes, myelocytes and metamyelocytes) > 1% indicates that a LEFT SHIFT is Present. MCH (RBC) [Entitic mass] 28.4 pg 27.0-32.0 [facility] Nucleated RBC/100 WBC (Bld) [Ratio] 0 % 0-5 [facility] MCHC Auto (RBC) [Mass/Vol]Or dered By: Dr. Leo on 09-18-2022 MCHC (RBC) [Mass/Vol] 31.6 g/dL 32-36 [facility] No Panel InformationOrdered By: Dr. Leo on 09-18-2022 Estimated Creatinine Clearance Calc 47.13 ml/min [facility] Estimated GFR (MDRD) Amer 71 mL/min >60 [facility] Comment on above: GFR Calc Estimated GFR (MDRD) Non-Af Amer 58 mL/min >60 [facility] Comment on above: Non- GFR Calc Thyroid Stimulating Hormone (TSH) 3.64 uIU/mL 0.358-3.74 [facility] Troponin I High Sensitivity 8 pg/mL 3.0-78.0 [facility] Comment on above: Please Note: [place] t Units and Gender Specific Reference Ranges. For more information see Policy Stat Procedure [employer] High Sensitivity Troponin (TNIH) and attachments. Platelets bldOrdered By: Dr. Leo on 09-18-2022 Platelets (Bld) [#/Vol] 131 10*3/uL 150-450 [facility] Serum or plasma albumin francine urement (mass/volume)Ordered By: Dr. Leo on 09-18-2022 Albumin [Mass/Vol] 2.9 g/dL 3.2-5.0 [facility] Serum or plasma albumin/glob ulin mass ratioOrdered By: Dr. Leo on 09-18-2022 Albumin/Globulin [Mass ratio] 1.0 {ratio} 0.9-2.4 [facility] Serum or plasma calcium francine urement (mass/volume)Ordered By: Dr. Leo on 09-18-2022 Calcium [Mass/Vol] 7.6 mg/dL 8.5-10.1 [facility] Serum or plasma cholesterol in HDL measurement (mass/volume)Ordered By: Dr. Leo on 09-18-2022 Cholesterol in HDL [Mass/Vol] 36 mg/dL >40 [facility] Comment on above: The drugs N-Acetylcy steine and Metamizole may falsely depress this assay. Reference Range HDL <40 mg/dL Low HDL Cholesterol HDL >or= 60 mg/dL High HDL Cholesterol Serum or plasma cholesterol in VLDL measurement (mass/volume)Ordered By: Dr. Leo on 09-18-2022 Cholesterol in VLDL [Mass/Vol] 35 mg/dL 5-40 [facility] Serum or plasma creatinine m easurement (mass/volume)Ordered By: Dr. Leo on 09-18-2022 Creatinine [Mass/Vol] 1.27 mg/dL 0.70-1.30 [facility] Comment on above: The validity of the calculated GFR & GFRAA in patients over 70 years has not been determined. Clinical correlation is essential. Serum or plasma low density lipoprotein (LDL) cholesterol measurement (mass/volume)Ordered By: Dr. Leo on 09-18-2022 Cholesterol in LDL [Mass/Vol] 43 mg/dL 0-130 [facility] Serum or plasma urea nitroge n measurement (mass/volume)Ordered By: Dr. Leo on 09-18-2022 Urea nitrogen [Mass/Vol] 17 mg/dL 7-18 [facility] Thin prep Papanicolaou smear with manual screeningOrdered By: Dr. Leo on 09-18-2022 Thin prep Papanicolaou smear with manual screening 21 U/L 15-37 [facility] Thin prep Papanicolaou smear with manual screening 8 5-15 [facility] Whole blood hemoglobin A1c/t otal hemoglobin ratio (mass fraction)Ordered By: Dr. Leo on 09-18-2022 HbA1c (Bld) [Mass fraction] 7.7 % 3.8-5.6 [facility] Comment on above: Normal < 5.7 % Predi abetic 5.7 - 6.4 % Diabetic >or= 6.5 % Please note range changes. INR in Blood by Coagulation assayOrdered By: Dr. Hall on 09-17-2022 INR Coag (Bld) [Relative time] 0.9 {INR} [facility] Laboratory - Chemistry and C hemistry - challengeOrdered By: Dr. Leo on 09-17-2022 Magnesium [Mass/Vol] 2.3 mg/dL 1.6-2.6 [facility] Laboratory - CoagulationOrde red By: Dr. Hall on 09-17-2022 aPTT Coag (Bld) [Time] 32.1 s 24.1-36.2 [facility] PT Coag (PPP) [Time] 12.3 s 11.7-14.9 [facility] Basophil percentageOrdered B y: Dr. Hay on 09-01-2022 Bilirubin [Mass/Vol] 0.70 mg/dL 0.20-1.00 [facility] Comment on above: For patients on eltr ombopag therapy, use of Dimension [employer] TBIL is not recommended. Chloride [Moles/Vol] 112 mmol/L 98-107 [facility] Glucose [Mass/Vol] 151 mg/dL 74-106 [facility] Comment on above: Fasting Glucose resu lt greater than or equal to 126 mg/dL suggests DIABETES MELLITUS per A.D.A. criteria. Potassium [Moles/Vol] 3.9 mmol/L 3.5-5.1 [facility] Protein [Mass/Vol] 5.7 g/dL 6.4-8.2 [facility] Sodium [Moles/Vol] 142 mmol/L 136-145 [facility] WBC (Bld) [#/Vol] 4.7 10*3/uL 4.4-11.0 [facility] Blood erythrocytes count (nu mber/volume)Ordered By: Dr. Hay on 09-01-2022 RBC (Bld) [#/Vol] 4.60 10*6/uL 4.6-6.2 [facility] Blood hemoglobin measurement (mass/volume)Ordered By: Dr. Hay on 09-01-2022 Hemoglobin (Bld) [Mass/Vol] 13.0 g/dL 13.0-16.5 [facility] Blood platelet mean volumeOr dered By: Dr. Hay on 09-01-2022 Platelet mean volume (Bld) [Entitic vol] 12.8 fL 6.2-12.0 [facility] Determination of erythrocyte mean corpuscular volume (MCV)Ordered By: Dr. Hay on 09-01-2022 MCV (RBC) [Entitic vol] 89.1 fL 80-94 [facility] Hematocrit Auto (Bld) [Volum e fraction]Ordered By: Dr. Hay on 09-01-2022 Hematocrit (Bld) [Volume fraction] 41.0 % 40-54 [facility] Laboratory - Chemistry and C hemistry - challengeOrdered By: Dr. Hay on 09-01-2022 ALP [Catalytic activity/Vol] 149 U/L 45-117 [facility] ALT [Catalytic activity/Vol] 35 U/L 16-61 [facility] CO2 [Moles/Vol] 27.0 mmol/L 21.0-32.0 [facility] Globulin (S) [Mass/Vol] 2.9 g/dL 2.2-4.2 [facility] Urea nitrogen/Creatinine [Mass ratio] 15.8 mg/mg 10-20 [facility] Laboratory - Hematology and Cell countsOrdered By: Dr. Hay on 09-01-2022 Erythrocyte distribution width (RBC) [Entitic vol] 44.1 fL 35.1-43.9 [facility] Erythrocyte distribution width (RBC) [Ratio] 13.5 % 11.6-14.6 [facility] MCH (RBC) [Entitic mass] 28.3 pg 27.0-32.0 [facility] MCHC Auto (RBC) [Mass/Vol]Or dered By: Dr. Hay on 09-01-2022 MCHC (RBC) [Mass/Vol] 31.7 g/dL 32-36 [facility] No Panel InformationOrdered By: Dr. Hay on 05-02-2023 Estimated Creatinine Clearance Calc 46.51 ml/min [facility] Estimated GFR (MDRD) Amer 67 mL/min >60 [facility] Comment on above: GFR Calc Estimated GFR (MDRD) Non-Af Amer 55 mL/min >60 [facility] Comment on above: Non- GFR Calc Platelets bldOrdered By: Dr. Hay on 09-01-2022 Platelets (Bld) [#/Vol] 106 10*3/uL 150-450 [facility] Serum or plasma albumin francine urement (mass/volume)Ordered By: Dr. Hay on 09-01-2022 Albumin [Mass/Vol] 2.8 g/dL 3.2-5.0 [facility] Serum or plasma albumin/glob ulin mass ratioOrdered By: Dr. Hay on 09-01-2022 Albumin/Globulin [Mass ratio] 1.0 {ratio} 0.9-2.4 [facility] Serum or plasma calcium francine urement (mass/volume)Ordered By: Dr. Hay on 09-01-2022 Calcium [Mass/Vol] 8.0 mg/dL 8.5-10.1 [facility] Serum or plasma creatinine m easurement (mass/volume)Ordered By: Dr. Hay on 09-01-2022 Creatinine [Mass/Vol] 1.33 mg/dL 0.70-1.30 [facility] Comment on above: The validity of the calculated GFR & GFRAA in patients over 70 years has not been determined. Clinical correlation is essential. Serum or plasma urea nitroge n measurement (mass/volume)Ordered By: Dr. Hay on 09-01-2022 Urea nitrogen [Mass/Vol] 21 mg/dL 7-18 [facility] Thin prep Papanicolaou smear with manual screeningOrdered By: Dr. Hay on 09-01-2022 Thin prep Papanicolaou smear with manual screening 21 U/L 15-37 [facility] Thin prep Papanicolaou smear with manual screening 3 5-15 [facility] No Panel InformationOrdered By: Dr. Hay on 08-31-2022 Activated Clotting Time 275 sec 74-137 [facility] Basophil percentageOrdered B y: Dr. Hay on 08-19-2022 Chloride [Moles/Vol] 108 mmol/L 98-107 [facility] Glucose [Mass/Vol] 158 mg/dL 74-106 [facility] Comment on above: Fasting Glucose resu lt greater than or equal to 126 mg/dL suggests DIABETES MELLITUS per A.D.A. criteria. Potassium [Moles/Vol] 4.3 mmol/L 3.5-5.1 [facility] Sodium [Moles/Vol] 137 mmol/L 136-145 [facility] WBC (Bld) [#/Vol] 8.2 10*3/uL 4.4-11.0 [facility] Blood erythrocytes count (nu mber/volume)Ordered By: Dr. Hay on 08-19-2022 RBC (Bld) [#/Vol] 5.05 10*6/uL 4.6-6.2 [facility] Blood hemoglobin measurement (mass/volume)Ordered By: Dr. Hay on 08-19-2022 Hemoglobin (Bld) [Mass/Vol] 14.3 g/dL 13.0-16.5 [facility] Blood platelet mean volumeOr dered By: Dr. Hay on 08-19-2022 Platelet mean volume (Bld) [Entitic vol] 12.5 fL 6.2-12.0 [facility] Determination of erythrocyte mean corpuscular volume (MCV)Ordered By: Dr. Hay on 08-19-2022 MCV (RBC) [Entitic vol] 88.3 fL 80-94 [facility] Hematocrit Auto (Bld) [Volum e fraction]Ordered By: Dr. Hay on 08-19-2022 Hematocrit (Bld) [Volume fraction] 44.6 % 40-54 [facility] INR in Blood by Coagulation assayOrdered By: Dr. Hay on 08-19-2022 INR Coag (Bld) [Relative time] 1.1 {INR} [facility] Laboratory - Chemistry and C hemistry - challengeOrdered By: Dr. Hay on 08-19-2022 CO2 [Moles/Vol] 25.0 mmol/L 21.0-32.0 [facility] Urea nitrogen/Creatinine [Mass ratio] 12.0 mg/mg 10-20 [facility] Laboratory - CoagulationOrde red By: Dr. Hay on 08-19-2022 aPTT Coag (Bld) [Time] 30.9 s 24.1-36.2 [facility] PT Coag (PPP) [Time] 13.4 s 11.7-14.9 [facility] Laboratory - Hematology and Cell countsOrdered By: Dr. Hay on 08-19-2022 Erythrocyte distribution width (RBC) [Entitic vol] 44.8 fL 35.1-43.9 [facility] Erythrocyte distribution width (RBC) [Ratio] 13.9 % 11.6-14.6 [facility] MCH (RBC) [Entitic mass] 28.3 pg 27.0-32.0 [facility] MCHC Auto (RBC) [Mass/Vol]Or dered By: Dr. Hay on 08-19-2022 MCHC (RBC) [Mass/Vol] 32.1 g/dL 32-36 [facility] No Panel InformationOrdered By: Dr. Hay on 08-19-2022 Estimated GFR (MDRD) Amer 72 mL/min >60 [facility] Comment on above: GFR Calc Estimated GFR (MDRD) Non-Af Amer 60 mL/min >60 [facility] Comment on above: Non- GFR Calc Platelets bldOrdered By: Dr. Hay on 08-19-2022 Platelets (Bld) [#/Vol] 151 10*3/uL 150-450 [facility] Serum or plasma calcium francine urement (mass/volume)Ordered By: Dr. Hay on 08-19-2022 Calcium [Mass/Vol] 9.0 mg/dL 8.5-10.1 [facility] Serum or plasma creatinine m easurement (mass/volume)Ordered By: Dr. Hay on 08-19-2022 Creatinine [Mass/Vol] 1.25 mg/dL 0.70-1.30 [facility] Comment on above: The validity of the calculated GFR & GFRAA in patients over 70 years has not been determined. Clinical correlation is essential. Serum or plasma urea nitroge n measurement (mass/volume)Ordered By: Dr. Hay on 08-19-2022 Urea nitrogen [Mass/Vol] 15 mg/dL 7-18 [facility] Thin prep Papanicolaou smear with manual screeningOrdered By: Dr. Hay on 08-19-2022 Thin prep Papanicolaou smear with manual screening 4 5-15 [facility] Basophil percentageOrdered B y: Dr. Rodriguez on 06-11-2022 Chloride [Moles/Vol] 102 mmol/L 98-107 [facility] Glucose [Mass/Vol] 274 mg/dL 74-106 [facility] Comment on above: Glucose result great er than or equal to 200 mg/dLsuggests DIABETES MELLITUS per A.D.A. criteria. Potassium [Moles/Vol] 4.3 mmol/L 3.5-5.1 [facility] Sodium [Moles/Vol] 136 mmol/L 136-145 [facility] Laboratory - Chemistry and C hemistry - challengeOrdered By: Dr. Rodriguez on 06-11-2022 CO2 [Moles/Vol] 24.0 mmol/L 21.0-32.0 [facility] Magnesium [Mass/Vol] 2.2 mg/dL 1.6-2.6 [facility] Urea nitrogen/Creatinine [Mass ratio] 15.7 mg/mg 10-20 [facility] No Panel InformationOrdered By: Dr. Rodriguez on 06-11-2022 Estimated GFR (MDRD) Amer 67 mL/min >60 [facility] Comment on above: GFR Calc Estimated GFR (MDRD) Non-Af Amer 55 mL/min >60 [facility] Comment on above: Non- GFR Calc Serum or plasma calcium francine urement (mass/volume)Ordered By: Dr. Rodriguez on 06-11-2022 Calcium [Mass/Vol] 8.7 mg/dL 8.5-10.1 [facility] Serum or plasma creatinine m easurement (mass/volume)Ordered By: Dr. Rodriguez on 06-11-2022 Creatinine [Mass/Vol] 1.34 mg/dL 0.70-1.30 [facility] Comment on above: The validity of the calculated GFR & GFRAA in patients over 70 years has not been determined. Clinical correlation is essential. Serum or plasma urea nitroge n measurement (mass/volume)Ordered By: Dr. Rodriguez on 02-09-2023 Urea nitrogen [Mass/Vol] 21 mg/dL 7-18 [facility] Thin prep Papanicolaou smear with manual screeningOrdered By: Dr. Rodriguez on 06-11-2022 Thin prep Papanicolaou smear with manual screening 10 5-15 [facility] Absolute lymphocyte countOrd ered By: Luz Elena Mckeon on 04-14-2022 Lymphocytes Auto (Unsp spec) [#/Vol] 1.60 10*3/uL 0.83-4.51 [facility] Basophil percentageOrdered B y: Luz Elena Mckeon on 04-14-2022 Basophils/100 WBC (Bld) 0.3 % 0-1 [facility] Chloride [Moles/Vol] 106 mmol/L 98-107 [facility] Eosinophils/100 WBC (Bld) 1.5 % 0-5 [facility] Glucose [Mass/Vol] 211 mg/dL 74-106 [facility] Comment on above: Glucose result great er than or equal to 200 mg/dLsuggests DIABETES MELLITUS per A.D.A. criteria. Neutrophils (Bld) [#/Vol] 3.8 10*3/uL 2.0-7.7 [facility] Neutrophils/100 WBC (Bld) 61.3 % 47-70 [facility] Potassium [Moles/Vol] 4.4 mmol/L 3.5-5.1 [facility] Sodium [Moles/Vol] 136 mmol/L 136-145 [facility] WBC (Bld) [#/Vol] 6.2 10*3/uL 4.4-11.0 [facility] Blood erythrocytes count (nu mber/volume)Ordered By: Luz Elena Mckeon on 04-14-2022 RBC (Bld) [#/Vol] 4.87 10*6/uL 4.6-6.2 [facility] Blood hemoglobin measurement (mass/volume)Ordered By: Luz Elena Mckeon on 04-14-2022 Hemoglobin (Bld) [Mass/Vol] 14.1 g/dL 13.0-16.5 [facility] Blood lymphocytes/100 leukoc ytesOrdered By: Luz Elena Mckeon on 04-14-2022 Lymphocytes/100 WBC (Bld) 25.8 % 19-41 [facility] Blood monocytes/100 leukocyt esOrdered By: Luz Elena Mckeon on 04-14-2022 Monocytes/100 WBC (Bld) 10.8 % 0-10 [facility] Blood platelet mean volumeOr dered By: Luz Elena Mckeon on 04-14-2022 Platelet mean volume (Bld) [Entitic vol] 12.8 fL 6.2-12.0 [facility] Determination of erythrocyte mean corpuscular volume (MCV)Ordered By: Luz Elena Mckeon on 04-14-2022 MCV (RBC) [Entitic vol] 88.1 fL 80-94 [facility] Hematocrit Auto (Bld) [Volum e fraction]Ordered By: Luz Elena Mckeon on 04-14-2022 Hematocrit (Bld) [Volume fraction] 42.9 % 40-54 [facility] Laboratory - Chemistry and C hemistry - challengeOrdered By: Luz Elena Mckeon on 04-14-2022 CO2 [Moles/Vol] 25.0 mmol/L 21.0-32.0 [facility] Natriuretic peptide B (Bld) [Mass/Vol] 54.2 pg/mL 0-100 [facility] Urea nitrogen/Creatinine [Mass ratio] 13.3 mg/mg 10-20 [facility] Laboratory - Hematology and Cell countsOrdered By: Luz Elena Mckeon on 04-14-2022 Erythrocyte distribution width (RBC) [Entitic vol] 44.7 fL 35.1-43.9 [facility] Erythrocyte distribution width (RBC) [Ratio] 13.9 % 11.6-14.6 [facility] Immature granulocytes/100 WBC (Bld) 0.300 % 0.0-0.9 [facility] Comment on above: IG% - Immature Granu locytes (promyelocytes, myelocytes and metamyelocytes) > 1% indicates that a LEFT SHIFT is Present. MCH (RBC) [Entitic mass] 29.0 pg 27.0-32.0 [facility] Nucleated RBC/100 WBC (Bld) [Ratio] 0 % 0-5 [facility] MCHC Auto (RBC) [Mass/Vol]Or dered By: Luz Elena Mckeon on 04-14-2022 MCHC (RBC) [Mass/Vol] 32.9 g/dL 32-36 [facility] No Panel InformationOrdered By: Luz Elena Mckeon on 04-14-2022 Estimated GFR (MDRD) Amer 81 mL/min >60 [facility] Comment on above: GFR Calc Estimated GFR (MDRD) Non-Af Amer 67 mL/min >60 [facility] Comment on above: Non- GFR Calc Platelets bldOrdered By: Loco Mckeon on 04-14-2022 Platelets (Bld) [#/Vol] 150 10*3/uL 150-450 [facility] Serum or plasma calcium francine urement (mass/volume)Ordered By: Luz Elena Mckeon on 04-14-2022 Calcium [Mass/Vol] 8.4 mg/dL 8.5-10.1 [facility] Serum or plasma creatinine m easurement (mass/volume)Ordered By: Luz Elena Mckeon on 04-14-2022 Creatinine [Mass/Vol] 1.13 mg/dL 0.70-1.30 [facility] Comment on above: The validity of the calculated GFR & GFRAA in patients over 70 years has not been determined. Clinical correlation is essential. Serum or plasma urea nitroge n measurement (mass/volume)Ordered By: Luz Elena Mckeon on 04-14-2022 Urea nitrogen [Mass/Vol] 15 mg/dL 7-18 [facility] Thin prep Papanicolaou smear with manual screeningOrdered By: Luz Elena Mckeon on 04-14-2022 Thin prep Papanicolaou smear with manual screening 5 5-15 [facility] Laboratory - Microbiology an d Antimicrobial susceptibilityon 03-27-2022 SARS-CoV-2 (COVID-19) RNA REAGAN+probe Ql (Unsp spec) Detected [facility] No Panel Informationon 03-27 Influenza Types A,B Rapid (Clinic) Not detected [facility] Absolute lymphocyte counton 11-21-2021 Lymphocytes Auto (Unsp spec) [#/Vol] 1.23 10*3/uL 0.83-4.51 [facility] Work Phone: Basophil percentageon 2021 Basophils/100 WBC (Bld) 0.3 % 0-1 [facility] Work Phone: Chloride [Moles/Vol] 106 mmol/L 98-107 [facility] Work Phone: Eosinophils/100 WBC (Bld) 1.2 % 0-5 [facility] Work Phone: Glucose [Mass/Vol] 166 mg/dL 74-106 [facility] Work Phone: Comment on above: Fasting Glucose resu lt greater than or equal to 126 mg/dL suggests DIABETES MELLITUS per A.D.A. criteria. Neutrophils (Bld) [#/Vol] 4.7 10*3/uL 2.0-7.7 [facility] Work Phone: Neutrophils/100 WBC (Bld) 69.8 % 47-70 [facility] Work Phone: Potassium [Moles/Vol] 4.2 mmol/L 3.5-5.1 [facility] Work Phone: Sodium [Moles/Vol] 140 mmol/L 136-145 [facility] Work Phone: WBC (Bld) [#/Vol] 6.7 10*3/uL 4.4-11.0 [facility] Work Phone: Blood erythrocytes count (nu mber/volume)on 11-21-2021 RBC (Bld) [#/Vol] 5.06 10*6/uL 4.6-6.2 [facility] Work Phone: Blood hemoglobin measurement (mass/volume)on 11-21-2021 Hemoglobin (Bld) [Mass/Vol] 14.3 g/dL 13.0-16.5 [facility] Work Phone: Blood lymphocytes/100 leukoc yteson 11-21-2021 Lymphocytes/100 WBC (Bld) 18.4 % 19-41 [facility] Work Phone: Blood monocytes/100 leukocyt eson 11-21-2021 Monocytes/100 WBC (Bld) 9.9 % 0-10 [facility] Work Phone: Blood platelet mean volumeon 11-21-2021 Platelet mean volume (Bld) [Entitic vol] 12.4 fL 6.2-12.0 [facility] Work Phone: Determination of erythrocyte mean corpuscular volume (MCV)on 11-21-2021 MCV (RBC) [Entitic vol] 89.1 fL 80-94 [facility] Work Phone: [phone] Hematocrit Auto (Bld) [Volum e fraction]on 11-21-2021 Hematocrit (Bld) [Volume fraction] 45.1 % 40-54 [facility] Work Phone: [phone] Laboratory - Chemistry and C hemistry - challengeon 11-21-2021 CO2 [Moles/Vol] 27.0 mmol/L 21.0-32.0 [facility] Work Phone: [phone] Natriuretic peptide B (Bld) [Mass/Vol] 60.9 pg/mL 0-100 [facility] Work Phone: [phone] Urea nitrogen/Creatinine [Mass ratio] 12.9 mg/mg 10-20 [facility] Work Phone: [phone] Laboratory - Hematology and Cell countson 11-21-2021 Erythrocyte distribution width (RBC) [Entitic vol] 45.1 fL 35.1-43.9 [facility] Work Phone: [phone] Erythrocyte distribution width (RBC) [Ratio] 14.0 % 11.6-14.6 [facility] Work Phone: [phone] Immature granulocytes/100 WBC (Bld) 0.400 % 0.0-0.9 [facility] Work Phone: [phone] Comment on above: IG% - Immature Granu locytes (promyelocytes, myelocytes and metamyelocytes) > 1% indicates that a LEFT SHIFT is Present. MCH (RBC) [Entitic mass] 28.3 pg 27.0-32.0 [facility] Work Phone: [phone] Nucleated RBC/100 WBC (Bld) [Ratio] 0 % 0-5 [facility] Work Phone: [phone] MCHC Auto (RBC) [Mass/Vol]on 11-21-2021 MCHC (RBC) [Mass/Vol] 31.7 g/dL 32-36 [facility] Work Phone: [phone] Panel Informationon 11-21 Estimated GFR (MDRD) Amer 63 mL/min >60 [facility] Work Phone: Comment on above: GFR Calc Estimated GFR (MDRD) Non-Af Amer 52 mL/min >60 [facility] Work Phone: Comment on above: Non- GFR Calc Platelets bldon 11-21-2021 Platelets (Bld) [#/Vol] 135 10*3/uL 150-450 [facility] Work Phone: Serum or plasma calcium francine urement (mass/volume)on 11-21-2021 Calcium [Mass/Vol] 8.9 mg/dL 8.5-10.1 [facility] Work Phone: Serum or plasma creatinine m easurement (mass/volume)on 11-21-2021 Creatinine [Mass/Vol] 1.40 mg/dL 0.70-1.30 [facility] Work Phone: Comment on above: The validity of the calculated GFR & GFRAA in patients over 70 years has not been determined. Clinical correlation is essential. Serum or plasma urea nitroge n measurement (mass/volume)on 11-21-2021 Urea nitrogen [Mass/Vol] 18 mg/dL 7-18 [facility] Work Phone: Thin prep Papanicolaou smear with manual screeningon 11-21-2021 Thin prep Papanicolaou smear with manual screening 7 5-15 [facility] Work Phone: Absolute lymphocyte counton 11-16-2021 Lymphocytes Auto (Unsp spec) [#/Vol] 2.06 10*3/uL 0.83-4.51 [facility] Work Phone: Basophil percentageon 2021 Basophils/100 WBC (Bld) 0.3 % 0-1 [facility] Work Phone: Chloride [Moles/Vol] 104 mmol/L 98-107 [facility] Work Phone: Eosinophils/100 WBC (Bld) 1.4 % 0-5 [facility] Work Phone: Glucose [Mass/Vol] 170 mg/dL 74-106 [facility] Work Phone: [phone] Comment on above: Fasting Glucose resu lt greater than or equal to 126 mg/dL suggests DIABETES MELLITUS per A.D.A. criteria. Neutrophils (Bld) [#/Vol] 5.0 10*3/uL 2.0-7.7 [facility] Work Phone: [phone] Neutrophils/100 WBC (Bld) 62.3 % 47-70 [facility] Work Phone: [phone] Potassium [Moles/Vol] 4.4 mmol/L 3.5-5.1 [facility] Work Phone: [phone] Comment on above: Slight Hemolysis, Re sult may be falsely increased. Sodium [Moles/Vol] 137 mmol/L 136-145 [facility] Work Phone: [phone] WBC (Bld) [#/Vol] 7.9 10*3/uL 4.4-11.0 [facility] Work Phone: [phone] Blood erythrocytes count (nu mber/volume)on 11-16-2021 RBC (Bld) [#/Vol] 5.42 10*6/uL 4.6-6.2 [facility] Work Phone: [phone] Blood hemoglobin measurement (mass/volume)on 11-16-2021 Hemoglobin (Bld) [Mass/Vol] 15.6 g/dL 13.0-16.5 [facility] Work Phone: [phone] Blood lymphocytes/100 leukoc yteson 11-16-2021 Lymphocytes/100 WBC (Bld) 26.0 % 19-41 [facility] Work Phone: [phone] Blood monocytes/100 leukocyt eson 11-16-2021 Monocytes/100 WBC (Bld) 9.6 % 0-10 [facility] Work Phone: [phone] Blood platelet mean volumeon 11-16-2021 Platelet mean volume (Bld) [Entitic vol] 12.9 fL 6.2-12.0 [facility] Work Phone: [phone] Determination of erythrocyte mean corpuscular volume (MCV)on 11-16-2021 MCV (RBC) [Entitic vol] 89.3 fL 80-94 [facility] Work Phone: [phone] Hematocrit Auto (Bld) [Volum e fraction]on 11-16-2021 Hematocrit (Bld) [Volume fraction] 48.4 % 40-54 [facility] Work Phone: [phone] Laboratory - Chemistry and C hemistry - challengeon 11-16-2021 CO2 [Moles/Vol] 27.0 mmol/L 21.0-32.0 [facility] Work Phone: [phone] Urea nitrogen/Creatinine [Mass ratio] 11.6 mg/mg 10-20 [facility] Work Phone: [phone] Laboratory - Hematology and Cell countson 11-16-2021 Erythrocyte distribution width (RBC) [Entitic vol] 44.5 fL 35.1-43.9 [facility] Work Phone: [phone] Erythrocyte distribution width (RBC) [Ratio] 13.8 % 11.6-14.6 [facility] Work Phone: [phone] Immature granulocytes/100 WBC (Bld) 0.400 % 0.0-0.9 [facility] Work Phone: [phone] Comment on above: IG% - Immature Granu locytes (promyelocytes, myelocytes and metamyelocytes) > 1% indicates that a LEFT SHIFT is Present. MCH (RBC) [Entitic mass] 28.8 pg 27.0-32.0 [facility] Work Phone: [phone] Nucleated RBC/100 WBC (Bld) [Ratio] 0 % 0-5 [facility] Work Phone: [phone] MCHC Auto (RBC) [Mass/Vol]on 11-16-2021 MCHC (RBC) [Mass/Vol] 32.2 g/dL 32-36 [facility] Work Phone: [phone] Panel Informationon 11-16 Troponin I High Sensitivity 7 pg/mL 3.0-78.0 [facility] Work Phone: Comment on above: Please Note: New [place] t Units and Gender Specific Reference Ranges. For more information see Policy Stat Procedure [employer] High Sensitivity Troponin (TNIH) and attachments. Estimated Creatinine Clearance Calc 45.54 ml/min [facility] Work Phone: Estimated GFR (MDRD) Amer 64 mL/min >60 [facility] Work Phone: Comment on above: GFR Calc Estimated GFR (MDRD) Non-Af Amer 53 mL/min >60 [facility] Work Phone: Comment on above: Non- GFR Calc Platelets bldon 11-16-2021 Platelets (Bld) [#/Vol] 142 10*3/uL 150-450 [facility] Work Phone: Serum or plasma calcium francine urement (mass/volume)on 11-16-2021 Calcium [Mass/Vol] 9.2 mg/dL 8.5-10.1 [facility] Work Phone: Serum or plasma creatinine m easurement (mass/volume)on 11-16-2021 Creatinine [Mass/Vol] 1.38 mg/dL 0.70-1.30 [facility] Work Phone: Comment on above: The validity of the calculated GFR & GFRAA in patients over 70 years has not been determined. Clinical correlation is essential. Serum or plasma urea nitroge n measurement (mass/volume)on 11-16-2021 Urea nitrogen [Mass/Vol] 16 mg/dL 7-18 [facility] Work Phone: Thin prep Papanicolaou smear with manual screeningon 11-16-2021 Thin prep Papanicolaou smear with manual screening 6 5-15 [facility] Work Phone: Basophil percentageon 2021 Chloride [Moles/Vol] 105 mmol/L 98-107 [facility] Work Phone: Glucose [Mass/Vol] 246 mg/dL 74-106 [facility] Work Phone: Comment on above: Glucose result great er than or equal to 200 mg/dLsuggests DIABETES MELLITUS per A.D.A. criteria. Potassium [Moles/Vol] 4.2 mmol/L 3.5-5.1 [facility] Work Phone: Sodium [Moles/Vol] 137 mmol/L 136-145 [facility] Work Phone: Laboratory - Chemistry and C hemistry - challengeon 10-28-2021 CO2 [Moles/Vol] 24.0 mmol/L 21.0-32.0 [facility] Work Phone: [phone] Urea nitrogen/Creatinine [Mass ratio] 15.6 mg/mg 10-20 [facility] Work Phone: No Panel Informationon 10-28 Estimated GFR (MDRD) Amer 74 mL/min >60 [facility] Work Phone: Comment on above: GFR Calc Estimated GFR (MDRD) Non-Af Amer 61 mL/min >60 [facility] Work Phone: Comment on above: Non- GFR Calc Serum or plasma calcium francine urement (mass/volume)on 10-28-2021 Calcium [Mass/Vol] 8.9 mg/dL 8.5-10.1 [facility] Work Phone: Serum or plasma creatinine m easurement (mass/volume)on 10-28-2021 Creatinine [Mass/Vol] 1.22 mg/dL 0.70-1.30 [facility] Work Phone: Comment on above: The validity of the calculated GFR & GFRAA in patients over 70 years has not been determined. Clinical correlation is essential. Serum or plasma urea nitroge n measurement (mass/volume)on 10-28-2021 Urea nitrogen [Mass/Vol] 19 mg/dL 7-18 [facility] Work Phone: [phone] Thin prep Papanicolaou smear with manual screeningon 10-28-2021 Thin prep Papanicolaou smear with manual screening 8 5-15 [facility] Work Phone: [phone] Whole blood hemoglobin A1c/t otal hemoglobin ratio (mass fraction)on 10-28-2021 HbA1c (Bld) [Mass fraction] 7.7 % 3.8-5.6 [facility] Work Phone: Comment on above: Normal < 5.7 % Predi abetic 5.7 - 6.4 % Diabetic >or= 6.5 % Please note range changes. Absolute lymphocyte counton 09-16-2021 Lymphocytes Auto (Unsp spec) [#/Vol] 1.24 10*3/uL 0.83-4.51 [facility] Work Phone: Basophil percentageon 2021 Basophils/100 WBC (Bld) 0.5 % 0-1 [facility] Work Phone: Chloride [Moles/Vol] 107 mmol/L 98-107 [facility] Work Phone: Eosinophils/100 WBC (Bld) 1.7 % 0-5 [facility] Work Phone: [phone] Glucose [Mass/Vol] 134 mg/dL 74-106 [facility] Work Phone: Comment on above: Fasting Glucose resu lt greater than or equal to 126 mg/dL suggests DIABETES MELLITUS per A.D.A. criteria. Neutrophils (Bld) [#/Vol] 4.4 10*3/uL 2.0-7.7 [facility] Work Phone: Neutrophils/100 WBC (Bld) 68.0 % 47-70 [facility] Work Phone: Potassium [Moles/Vol] 4.3 mmol/L 3.5-5.1 [facility] Work Phone: Sodium [Moles/Vol] 139 mmol/L 136-145 [facility] Work Phone: WBC (Bld) [#/Vol] 6.4 10*3/uL 4.4-11.0 [facility] Work Phone: [phone] Blood erythrocytes count (nu mber/volume)on 09-16-2021 RBC (Bld) [#/Vol] 4.84 10*6/uL 4.6-6.2 [facility] Work Phone: Blood hemoglobin measurement (mass/volume)on 09-16-2021 Hemoglobin (Bld) [Mass/Vol] 14.1 g/dL 13.0-16.5 [facility] Work Phone: Blood lymphocytes/100 leukoc yteson 09-16-2021 Lymphocytes/100 WBC (Bld) 19.3 % 19-41 [facility] Work Phone: Blood monocytes/100 leukocyt eson 09-16-2021 Monocytes/100 WBC (Bld) 10.0 % 0-10 [facility] Work Phone: [phone] Blood platelet mean volumeon 09-16-2021 Platelet mean volume (Bld) [Entitic vol] 12.7 fL 6.2-12.0 [facility] Work Phone: Determination of erythrocyte mean corpuscular volume (MCV)on 09-16-2021 MCV (RBC) [Entitic vol] 90.1 fL 80-94 [facility] Work Phone: Hematocrit Auto (Bld) [Volum e fraction]on 09-16-2021 Hematocrit (Bld) [Volume fraction] 43.6 % 40-54 [facility] Work Phone: Laboratory - Chemistry and C hemistry - challengeon 09-16-2021 CO2 [Moles/Vol] 27.0 mmol/L 21.0-32.0 [facility] Work Phone: Natriuretic peptide B (Bld) [Mass/Vol] 80.9 pg/mL 0-100 [facility] Work Phone: Urea nitrogen/Creatinine [Mass ratio] 13.7 mg/mg 10-20 [facility] Work Phone: Laboratory - Hematology and Cell countson 09-16-2021 Erythrocyte distribution width (RBC) [Entitic vol] 46.2 fL 35.1-43.9 [facility] Work Phone: Erythrocyte distribution width (RBC) [Ratio] 13.9 % 11.6-14.6 [facility] Work Phone: Immature granulocytes/100 WBC (Bld) 0.500 % 0.0-0.9 [facility] Work Phone: Comment on above: IG% - Immature Granu locytes (promyelocytes, myelocytes and metamyelocytes) > 1% indicates that a LEFT SHIFT is Present. MCH (RBC) [Entitic mass] 29.1 pg 27.0-32.0 [facility] Work Phone: Nucleated RBC/100 WBC (Bld) [Ratio] 0 % 0-5 [facility] Work Phone: [phone] MCHC Auto (RBC) [Mass/Vol]on 09-16-2021 MCHC (RBC) [Mass/Vol] 32.3 g/dL 32-36 [facility] Work Phone: No Panel Informationon 09-16 Estimated GFR (MDRD) Amer 73 mL/min >60 [facility] Work Phone: Comment on above: GFR Calc Estimated GFR (MDRD) Non-Af Amer 60 mL/min >60 [facility] Work Phone: Comment on above: Non- GFR Calc Platelets bldon 09-16-2021 Platelets (Bld) [#/Vol] 133 10*3/uL 150-450 [facility] Work Phone: [phone] Serum or plasma calcium francine urement (mass/volume)on 09-16-2021 Calcium [Mass/Vol] 9.0 mg/dL 8.5-10.1 [facility] Work Phone: [phone] Serum or plasma creatinine m easurement (mass/volume)on 09-16-2021 Creatinine [Mass/Vol] 1.24 mg/dL 0.70-1.30 [facility] Work Phone: Comment on above: The validity of the calculated GFR & GFRAA in patients over 70 years has not been determined. Clinical correlation is essential. Serum or plasma urea nitroge n measurement (mass/volume)on 09-16-2021 Urea nitrogen [Mass/Vol] 17 mg/dL 7-18 [facility] Work Phone: Thin prep Papanicolaou smear with manual screeningon 09-16-2021 Thin prep Papanicolaou smear with manual screening 5 5-15 [facility] Work Phone: Absolute lymphocyte counton 06-10-2021 Lymphocytes Auto (Unsp spec) [#/Vol] 1.00 10*3/uL 0.83-4.51 [facility] Work Phone: Basophil percentageon 2021 Basophils/100 WBC (Bld) 0.3 % 0-1 [facility] Work Phone: Chloride [Moles/Vol] 107 mmol/L 98-107 [facility] Work Phone: Eosinophils/100 WBC (Bld) 1.7 % 0-5 [facility] Work Phone: Glucose [Mass/Vol] 150 mg/dL 74-106 [facility] Work Phone: Comment on above: Fasting Glucose resu lt greater than or equal to 126 mg/dL suggests DIABETES MELLITUS per A.D.A. criteria. Neutrophils (Bld) [#/Vol] 4.9 10*3/uL 2.0-7.7 [facility] Work Phone: Neutrophils/100 WBC (Bld) 73.8 % 47-70 [facility] Work Phone: Potassium [Moles/Vol] 5.6 mmol/L 3.5-5.1 [facility] Work Phone: Comment on above: Moderate Hemolysis, Result may be falsely increased. Sodium [Moles/Vol] 139 mmol/L 136-145 [facility] Work Phone: WBC (Bld) [#/Vol] 6.7 10*3/uL 4.4-11.0 [facility] Work Phone: Blood erythrocytes count (nu mber/volume)on 06-10-2021 RBC (Bld) [#/Vol] 5.17 10*6/uL 4.6-6.2 [facility] Work Phone: Blood hemoglobin measurement (mass/volume)on 06-10-2021 Hemoglobin (Bld) [Mass/Vol] 15.5 g/dL 13.0-16.5 [facility] Work Phone: Blood lymphocytes/100 leukoc yteson 06-10-2021 Lymphocytes/100 WBC (Bld) 15.0 % 19-41 [facility] Work Phone: [phone] Blood monocytes/100 leukocyt eson 06-10-2021 Monocytes/100 WBC (Bld) 8.7 % 0-10 [facility] Work Phone: Blood platelet mean volumeon 06-10-2021 Platelet mean volume (Bld) [Entitic vol] 12.7 fL 6.2-12.0 [facility] Work Phone: Determination of erythrocyte mean corpuscular volume (MCV)on 06-10-2021 MCV (RBC) [Entitic vol] 89.6 fL 80-94 [facility] Work Phone: Hematocrit Auto (Bld) [Volum e fraction]on 06-10-2021 Hematocrit (Bld) [Volume fraction] 46.3 % 40-54 [facility] Work Phone: Laboratory - Chemistry and C hemistry - challengeon 06-10-2021 CO2 [Moles/Vol] 28.0 mmol/L 21.0-32.0 [facility] Work Phone: Urea nitrogen/Creatinine [Mass ratio] 12.7 mg/mg 10-20 [facility] Work Phone: [phone] Laboratory - Hematology and Cell countson 06-10-2021 Erythrocyte distribution width (RBC) [Entitic vol] 45.9 fL 35.1-43.9 [facility] Work Phone: [phone] Erythrocyte distribution width (RBC) [Ratio] 14.1 % 11.6-14.6 [facility] Work Phone: Immature granulocytes/100 WBC (Bld) 0.500 % 0.0-0.9 [facility] Work Phone: Comment on above: IG% - Immature Granu locytes (promyelocytes, myelocytes and metamyelocytes) > 1% indicates that a LEFT SHIFT is Present. MCH (RBC) [Entitic mass] 30.0 pg 27.0-32.0 [facility] Work Phone: [phone] Nucleated RBC/100 WBC (Bld) [Ratio] 0 % 0-5 [facility] Work Phone: [phone] MCHC Auto (RBC) [Mass/Vol]on 06-10-2021 MCHC (RBC) [Mass/Vol] 33.5 g/dL 32-36 [facility] Work Phone: [phone] Panel Informationon 06-10 Troponin I High Sensitivity 10 pg/mL 3.0-78.0 [facility] Work Phone: [phone] Comment on above: Please Note: New Jana t Units and Gender Specific Reference Ranges. For more information see Policy Stat Procedure [employer] High Sensitivity Troponin (TNIH) and attachments. Estimated Creatinine Clearance Calc 47.63 ml/min [facility] Work Phone: Estimated GFR (MDRD) Amer 67 mL/min >60 [facility] Work Phone: [phone] Comment on above: GFR Calc Estimated GFR (MDRD) Non-Af Amer 55 mL/min >60 [facility] Work Phone: [phone] Comment on above: Non- GFR Calc Platelets bldon 06-10-2021 Platelets (Bld) [#/Vol] 146 10*3/uL 150-450 [facility] Work Phone: [phone] Serum or plasma calcium francine urement (mass/volume)on 06-10-2021 Calcium [Mass/Vol] 8.7 mg/dL 8.5-10.1 [facility] Work Phone: [phone] Serum or plasma creatinine m easurement (mass/volume)on 06-10-2021 Creatinine [Mass/Vol] 1.34 mg/dL 0.70-1.30 [facility] Work Phone: Comment on above: The validity of the calculated GFR & GFRAA in patients over 70 years has not been determined. Clinical correlation is essential. Serum or plasma urea nitroge n measurement (mass/volume)on 06-10-2021 Urea nitrogen [Mass/Vol] 17 mg/dL 7-18 [facility] Work Phone: Thin prep Papanicolaou smear with manual screeningon 06-10-2021 Thin prep Papanicolaou smear with manual screening 4 5-15 [facility] Work Phone: Absolute lymphocyte counton 05-19-2021 Lymphocytes Auto (Unsp spec) [#/Vol] 1.72 10*3/uL 0.83-4.51 [facility] Work Phone: Basophil percentageon 2021 Basophils/100 WBC (Bld) 0.4 % 0-1 [facility] Work Phone: Bilirubin [Mass/Vol] 1.20 mg/dL 0.20-1.00 [facility] Work Phone: Comment on above: For patients on eltr ombopag therapy, use of Dimension [employer] TBIL is not recommended. Chloride [Moles/Vol] 106 mmol/L 98-107 [facility] Work Phone: Eosinophils/100 WBC (Bld) 1.2 % 0-5 [facility] Work Phone: Glucose [Mass/Vol] 182 mg/dL 74-106 [facility] Work Phone: Comment on above: Fasting Glucose resu lt greater than or equal to 126 mg/dL suggests DIABETES MELLITUS per A.D.A. criteria. Neutrophils (Bld) [#/Vol] 6.6 10*3/uL 2.0-7.7 [facility] Work Phone: Neutrophils/100 WBC (Bld) 70.5 % 47-70 [facility] Work Phone: Potassium [Moles/Vol] 3.8 mmol/L 3.5-5.1 [facility] Work Phone: [phone] Protein [Mass/Vol] 7.9 g/dL 6.4-8.2 [facility] Work Phone: Sodium [Moles/Vol] 139 mmol/L 136-145 [facility] Work Phone: WBC (Bld) [#/Vol] 9.4 10*3/uL 4.4-11.0 [facility] Work Phone: Basophil percentage 0 SEEN /hpf [facility] Work Phone: Bilirubin Test strip Ql (U)o n 05-19-2021 Bilirubin Ql (U) Negative Negative [facility] Work Phone: Blood erythrocytes count (nu mber/volume)on 05-19-2021 RBC (Bld) [#/Vol] 5.30 10*6/uL 4.6-6.2 [facility] Work Phone: Blood hemoglobin measurement (mass/volume)on 05-19-2021 Hemoglobin (Bld) [Mass/Vol] 15.3 g/dL 13.0-16.5 [facility] Work Phone: Blood lymphocytes/100 leukoc yteson 05-19-2021 Lymphocytes/100 WBC (Bld) 18.3 % 19-41 [facility] Work Phone: Blood monocytes/100 leukocyt eson 05-19-2021 Monocytes/100 WBC (Bld) 9.3 % 0-10 [facility] Work Phone: [phone] Blood platelet mean volumeon 05-19-2021 Platelet mean volume (Bld) [Entitic vol] 12.5 fL 6.2-12.0 [facility] Work Phone: Determination of erythrocyte mean corpuscular volume (MCV)on 05-19-2021 MCV (RBC) [Entitic vol] 89.8 fL 80-94 [facility] Work Phone: Hematocrit Auto (Bld) [Volum e fraction]on 05-19-2021 Hematocrit (Bld) [Volume fraction] 47.6 % 40-54 [facility] Work Phone: [phone] Ketones Test strip Ql (U)on 05-19-2021 Ketones Ql (U) Negative Negative [facility] Work Phone: [phone] Laboratory - Chemistry and C hemistry - challengeon 05-19-2021 ALP [Catalytic activity/Vol] 156 U/L 45-117 [facility] Work Phone: [phone] ALT [Catalytic activity/Vol] 44 U/L 16-61 [facility] Work Phone: [phone] CO2 [Moles/Vol] 26.0 mmol/L 21.0-32.0 [facility] Work Phone: [phone] Globulin (S) [Mass/Vol] 4.2 g/dL 2.2-4.2 [facility] Work Phone: [phone] Lipase [Catalytic activity/Vol] 199 U/L 73-393 [facility] Work Phone: [phone] Urea nitrogen/Creatinine [Mass ratio] 13.8 mg/mg 10-20 [facility] Work Phone: [phone] Laboratory - Hematology and Cell countson 05-19-2021 Erythrocyte distribution width (RBC) [Entitic vol] 46.7 fL 35.1-43.9 [facility] Work Phone: [phone] Erythrocyte distribution width (RBC) [Ratio] 14.3 % 11.6-14.6 [facility] Work Phone: [phone] Immature granulocytes/100 WBC (Bld) 0.300 % 0.0-0.9 [facility] Work Phone: [phone] Comment on above: IG% - Immature Granu locytes (promyelocytes, myelocytes and metamyelocytes) > 1% indicates that a LEFT SHIFT is Present. MCH (RBC) [Entitic mass] 28.9 pg 27.0-32.0 [facility] Work Phone: Nucleated RBC/100 WBC (Bld) [Ratio] 0 % 0-5 [facility] Work Phone: [phone] MCHC Auto (RBC) [Mass/Vol]on 05-19-2021 MCHC (RBC) [Mass/Vol] 32.1 g/dL 32-36 [facility] Work Phone: Mucus LM Ql (Urine sed)on Mucus Ql (Urine sed) 0 SEEN /hpf [facility] Work Phone: Nitrite Test strip Ql (U)on 05-19-2021 Nitrite Ql (U) Negative Negative [facility] Work Phone: [phone] No Panel Informationon 05-19 Estimated Creatinine Clearance Calc 46.25 ml/min [facility] Work Phone: [phone] Estimated GFR (MDRD) Amer 65 mL/min >60 [facility] Work Phone: [phone] Comment on above: GFR Calc Estimated GFR (MDRD) Non-Af Amer 53 mL/min >60 [facility] Work Phone: [phone] Comment on above: Non- GFR Calc Platelets bldon 05-19-2021 Platelets (Bld) [#/Vol] 158 10*3/uL 150-450 [facility] Work Phone: Protein Test strip Ql (U)on 05-19-2021 Protein Ql (U) Negative Negative [facility] Work Phone: [phone] Serum or plasma albumin francine urement (mass/volume)on 05-19-2021 Albumin [Mass/Vol] 3.7 g/dL 3.2-5.0 [facility] Work Phone: [phone] Serum or plasma albumin/glob ulin mass ratioon 05-19-2021 Albumin/Globulin [Mass ratio] 0.9 {ratio} 0.9-2.4 [facility] Work Phone: [phone] Serum or plasma calcium francine urement (mass/volume)on 05-19-2021 Calcium [Mass/Vol] 9.2 mg/dL 8.5-10.1 [facility] Work Phone: [phone] Serum or plasma creatinine m easurement (mass/volume)on 05-19-2021 Creatinine [Mass/Vol] 1.38 mg/dL 0.70-1.30 [facility] Work Phone: Comment on above: The validity of the calculated GFR & GFRAA in patients over 70 years has not been determined. Clinical correlation is essential. Serum or plasma urea nitroge n measurement (mass/volume)on 05-19-2021 Urea nitrogen [Mass/Vol] 19 mg/dL 7-18 [facility] Work Phone: [phone] Squamous epithelial cells de tection in urine sediment by light microscopyon 05-19-2021 Epithelial cells.squamous LM Ql (Urine sed) 0 SEEN /hpf [facility] Work Phone: Thin prep Papanicolaou smear with manual screeningon 05-19-2021 Thin prep Papanicolaou smear with manual screening 25 U/L 15-37 [facility] Work Phone: [phone] Thin prep Papanicolaou smear with manual screening 7 5-15 [facility] Work Phone: Urine blood detectionon 05-03 RBC Ql (U) Negative Negative [facility] Work Phone: [phone] RBC Ql (U) 0 SEEN /hpf [facility] Work Phone: [phone] Urine clarityon 05-19-2021 Clarity (U) Clear Clear [facility] Work Phone: Urine color determinationon 05-19-2021 Color (U) Straw Yellow [facility] Work Phone: Urine glucose detectionon Glucose Ql (U) Normal mg/dl Normal [facility] Work Phone: Urine leukocyte esterase det ection by dipstickon 05-19-2021 Leukocyte esterase Test strip Ql (U) Negative Negative [facility] Work Phone: [phone] Urine pHon 05-19-2021 pH (U) 5.0 [pH] [facility] Work Phone: [phone] Urine sediment bacteria coun t by microscopy (number/high power field)on 05-19-2021 Bacteria LM.HPF (Urine sed) [#/Area] 0 /[HPF] None Seen [facility] Work Phone: Urine specific gravity measu rementon 05-19-2021 Specific gravity (U) [Rel density] 1.010 [facility] Work Phone: Urobilinogen Auto test strip Ql (U)on 05-19-2021 Urobilinogen Ql (U) Normal mg/dl Normal [facility] Work Phone: CT ANGIOGRAM AORTA CHEST [...] descending thoracic aorta is tortuous within its jyk-rh-ptkeju course but is not aneurysmal. The abdominal [...] particularly at L4-L5 and L5-S1. IMAGING FACILITY: [facility]. 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 Physician: PROCEDURE(S) PERFORMED: Clinical History: Prior smoker, quit date: Diabetes Mellitus: Yes Hypertension: Yes Dyslipidemia: Yes Prior IN: Yes Other: Stroke Prior PCI: Yes 2016 [...] right femoral artery - 6F. 10 cm [place] Catheters were advanced using standard guide wire [...] Equipment: Sheath(s) [employer] 4F MICROPUNCTURE KIT Allocadia 6F 10CM [place] SHEATH Wire(s) [employer] J WIRE FIXED MERIT .035 X 150CM GUIDEWIRE Catheter(s) Haul [employer]ing. JR4 DIAG CATH 6F [employer]. JR4 DIAG CATH 6F [employer] Zing. PIGTAIL STRAIGHT DIAG CATH 6F See Nursing Notes for further details Signed By Eladio Ingram MD On 01/10/2021 11:05:05 Eladio Ingram MD _ _ Normal [facility] ECHOCARDIOGRAM 2D COMPLETEOr dered By: Eladio Ingram on 10-15-2020 Aortic valve area 2.59250 cm [facility] AV mean gradient 6 mmHg [facility] EF 62.7797 % [facility] Patient Info Name: Jina RICO Age: 75 years : 1945 Gender: Male Ht: 175 cm Wt: 106 kg BSA: 2.31 m2 HR: 50 bpm BP: 134 / 72 mmHg Heart Rhythm: Bradycardia, Sinus Rhythm Technical Quality: Fair, Technically difficult Exam Date: 10/15/2020 12:57 PM Patient Status: Outpatient Fruit Preserver: Tracy Bonilla, DRU, RVT Exam Type: ECHOCARDIOGRAM COMPLETE W CONTRAST Study Info Indications - Dyspnea Attending Physician: ELADIO INGRAM Referring Physician: ELADIO INGRAM ; [id number] BMI: 34.56 kg/m2 Summary 1. Left ventricular systolic function is normal, with ejection fraction estimated at 60 +/- 5%. 2. The left ventricular diastolic function is normal. 3. 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 4. There is no aortic valve stenosis. History/Risk Factors Hypertension: Yes Dyslipidemia: Yes Diabetic Therapy: Oral Peripheral Arterial Disease (PAD): Yes Myocardial Infarction (IN): Yes Coronary Artery Disease (CAD) Yes Congestive Heart Failure (CHF): Hx CHF Date of Prior IN: 05/03/2008 Diabetes Mellitus: Yes History/Risk Factors sleep [...] Velocity 1.09 m/s (more content not included)... [facility] Interface, Rad In artlab [employer] - 10/15/2020 4:30 PM EDT Patient Info Name: GERRY RICO Age: 75 years : 1945 Gender: Male Ht: 175 cm Wt: 106 kg BSA: 2.31 m2 HR: 50 bpm BP: 134 / 72 mmHg Heart Rhythm: Bradycardia, Sinus Rhythm Technical Quality: Fair, Technically difficult Exam Date: 10/15/2020 12:57 PM Patient Status: Outpatient Fruit Preserver: Tracy Bonilla RDCS, RVT Exam Type: ECHOCARDIOGRAM COMPLETE W CONTRAST Study Info Indications - Dyspnea Attending Physician: ELADIO INGRAM Referring Physician: ELADIO INGRAM ; [id number] BMI: 34.56 kg/m2 Summary 1. Left ventricular systolic function is normal, with ejection fraction estimated at 60 +/- 5%. 2. The left ventricular diastolic function is normal. 3. 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 4. There is no aortic valve stenosis. History/Risk Factors Hypertension: Yes Dyslipidemia: Yes Diabetic Therapy: Oral Peripheral Arterial Disease (PAD): Yes Myocardial Infarction (IN): Yes Coronary Artery Disease (CAD) Yes Congestive Heart Failure (CHF): Hx CHF Date of Prior IN: 05/03/2008 Diabetes Mellitus: Yes History/Risk Factors sleep [...] mmHg MV VTI 46 cm MV [employer] [place] 333 cm/s2 MV PHT 38 ms MV Area (PHT) 5.8 cm2 4.0-5.0 MV Area (Cont Eq VTI) 2.5 cm2 MV Area Index (Cont Eq VTI) 1.06 cm2/m2 MV Di (more content not included)... [facility] ECHOCARDIOGRAM COMPLETE W CO NTRASTon 10-15-2020 ECHOCARDIOGRAM COMPLETE W CONTRAST Patient Info Name: GERRY RICO Age: 75 years : 1945 Gender: Male Ht: 175 cm Wt: 106 kg BSA: 2.31 m2 HR: 50 bpm BP: 134 / 72 mmHg Heart Rhythm: Bradycardia, Sinus Rhythm Technical Quality: Fair, Technically difficult Exam Date: 10/15/2020 12:57 PM Patient Status: Outpatient Fruit Preserver: Tracy Bonilla, DRU, T Exam Type: ECHOCARDIOGRAM COMPLETE W CONTRAST Study Info Indications - Dyspnea Attending Physician: ELADIO INGRAM Referring Physician: ELADIO INGRAM ; [id number] BMI: 34.56 kg/m2 Summary 1. Left ventricular systolic function is normal, with ejection fraction estimated at 60 +/- 5%. 2. The left ventricular diastolic function is normal. 3. 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 4. There is no aortic valve stenosis. History/Risk Factors Hypertension: Yes Dyslipidemia: Yes Diabetic Therapy: Oral Peripheral Arterial Disease (PAD): Yes Myocardial Infarction (IN): Yes Coronary Artery Disease (CAD) Yes Congestive Heart Failure (CHF): Hx CHF Date of Prior IN: 05/03/2008 Diabetes Mellitus: Yes History/Risk Factors sleep [...] mmHg MV VTI 46 cm MV [employer]el [place] 333 cm/s2 MV PHT 38 ms MV Area (PHT) 5.8 cm2 4.0-5.0 MV Area (Cont Eq VTI) 2.5 cm2 MV Area Index (Cont Eq VTI) 1.06 cm2/m2 MV Diastolic Function MV E Peak Velocity 1 m/s MV A Peak Velocity 1 m/s MV E/A 1.2 MV (more content not included)... Normal [facility] Ambulatory ECG 12-LEADOrdered By: Sagar Acuña on 10-09-2020 Atrial Rate [facility] P [place] [facility] P-R Interval [facility] Q-T Interval [facility] Q-T Interval (corrected) [facility] QRS Duration [facility] QTC Calculation (Carlos) [facility] R [place] [facility] T [place] [facility] Ventricular Rate [facility] Auto Diffon 09-15-2018 Basophils #/vol (Bld) 0.0 E3/mcL Normal 0.0-0.2 [facility] Comment on above: Order Comment: Order Added by Discern Expert. Performed By: #### 2 [id number] #### [employer] [address] [place] [address] 51268 Basophils/100 WBC (Bld) 0.6 % Normal 0.0-2.0 [facility] Comment on above: Order Comment: Order Added by Discern Expert. Performed By: #### 2 [id number] #### [employer] [address] [place] [address] 58125 Eos Absolute 0.1 E3/mcL Normal 0.0-0.7 [facility] Comment on above: Order Comment: Order Added by Discern Expert. Performed By: #### 2 [id number] #### [employer] [address] [place] [address] 14969 Eosinophils/100 WBC (Bld) 2.2 % Normal 0.0-11.0 [facility] Comment on above: Order Comment: Order Added by Kiana Expert. Performed By: #### 2 [id number] #### [employer] [address] [place] [address] 46205 Lymphocytes #/vol (Bld) 1.9 E3/mcL Normal 1.2-3.4 [facility] Comment on above: Order Comment: Order Added by Discern Expert. Performed By: #### 2 [id number] #### [employer] [address] [place] [address] 02474 Lymphocytes/100 WBC (Bld) 31.0 % Normal 20.0-55.0 [facility] Comment on above: Order Comment: Order Added by Discern Expert. Performed By: #### 2 [id number] #### [employer] [address] [place] [address] [place] Absolute 0.8 E3/mcL High 0.0-0.7 [facility] Comment on above: Order Comment: Order Added by Discern Expert. Performed By: #### 2 [id number] #### [employer] [address] [place] [address] 63588 Monocytes/100 WBC (Bld) 13.2 % High 0.0-10.0 [facility] Comment on above: Order Comment: Order Added by Discern Expert. Performed By: #### 2 [id number] #### [employer] [address] [place] [address] Neutro Absolute 3.3 E3/mcL Normal 1.4-6.5 [facility] Comment on above: Order Comment: Order Added by Discern Expert. Performed By: #### 2 [id number] #### [employer] [address] [place] [address] Neutro Auto 53.0 % Normal 37.0-75.0 [facility] Comment on above: Order Comment: Order Added by Discern Expert. Performed By: #### 2 [id number] #### [employer] [address] [place] [address] BMPon 09-15-2018 Anion gap molar conc 10 mmol/L Normal 10-20 [facility] Comment on above: Performed By: #### 2 [id number] #### [employer] [address] [place] [address] Calcium mass conc 8.4 mg/dL Low 8.6-10.3 [facility] Comment on above: Performed By: #### 2 [id number] #### [employer] [address] [place] [address] Chloride molar conc 105 mmol/L Normal 98-107 [facility] Comment on above: Performed By: #### 2 [id number] #### [employer] [address] [place] [address] CO2 molar conc 26.0 mmol/L Normal 21.0-32.0 [facility] Comment on above: Performed By: #### 2 [id number] #### [employer] [address] [place] [address] Creatinine mass conc 1.1 mg/dL Normal 0.5-1.3 [facility] Comment on above: Performed By: #### 2 [id number] #### [employer] [address] [place] [address] Glucose mass conc 136 mg/dL High 70-99 [facility] Comment on above: Performed By: #### 2 [id number] #### [employer] [address] [place] [address] Potassium molar conc 4.1 mmol/L Normal 3.5-5.3 [facility] Comment on above: Performed By: #### 2 [id number] #### [employer] [address] [place] [address] Sodium molar conc 137 mmol/L Normal 136-145 [facility] Comment on above: Performed By: #### 2 [id number] #### [employer] [address] [place] [address] Urea nitrogen mass conc 19 mg/dL Normal 6-23 [facility] Comment on above: Performed By: #### 2 [id number] #### [employer] [facility] [place] [address] Urea nitrogen/Creatinine mass ratio 17.3 ratio Normal 5.4-30.0 [facility] Comment on above: Performed By: #### 2 [id number] #### [employer] [address] [place] [address] 17951 CBC w/ Auto Diffon 9 Erythrocyte distribution width Ratio (RBC) 14.9 % High 11.5-14.5 [facility] Comment on above: Performed By: #### 2 [id number] #### [facility] [employer] [address] [place] [address] 35575 Hematocrit Volume Fraction (Bld) 41.5 % Low 42.0-52.0 [facility] Comment on above: Performed By: #### 2 [id number] #### [facility] [employer] [address] [place] [address] 43733 Hemoglobin mass conc (Bld) 13.6 g/dL Normal 13.5-18.0 [facility] Comment on above: Performed By: #### 2 [id number] #### [employer] [address] [place] [address] 45985 MCH Entitic mass (RBC) 29.6 pg Normal 27.0-31.0 [facility] Comment on above: Performed By: #### 2 [id number] #### [employer] [address] [place] [address] 99682 MCHC mass conc (RBC) 32.8 g/dL Low 33.0-37.0 [facility] Comment on above: Performed By: #### 2 [id number] #### [employer] [address] [place] [address] MCV Entitic volume (RBC) 90.4 fL Normal 78.0-100.0 [facility] Comment on above: Performed By: #### 2 [id number] #### [employer] [address] [place], [place] [id number] Platelet mean volume Entitic volume (Bld) 10.8 fL Normal 7.4-11.0 [facility] Comment on above: Performed By: #### 2 [id number] #### [employer] [address] [place] [address] Platelets #/vol (Bld) 137 E3/mcL Normal 130-400 [facility] Comment on above: Performed By: #### 2 [id number] #### [employer] [address] [place] [address] RBC #/vol (Bld) 4.59 E6/mcL Normal 3.90-6.10 [facility] Comment on above: Performed By: #### 2 [id number] #### [employer] [address] [place] [address] WBC #/vol (Bld) 6.2 E3/mcL Normal 3.6-11.0 [facility] Comment on above: Performed By: #### 2 [id number] #### [employer] [address] [place] [address] Glucose POCon 09-15-2018 Glucose mass conc 163 mg/dL High 70-99 [facility] Comment on above: Performed By: #### 2 [id number] #### [employer] [address] [place] [address] Glucose mass conc 99 mg/dL Normal 70-99 [facility] Comment on above: Performed By: #### 2 179392 #### [employer] [address] [place], [place] [id number] Troponin-Ion 09-15-2018 Troponin I.cardiac mass conc 0.01 ng/mL Normal 0.00-0.03 [facility] Comment on above: Performed By: #### 2 [id number] #### [employer] [address] [place], [place] [id number] eGFRon 09-15-2018 GFR/1.73 sq M predicted among non-blacks MDRD vol rate/area (S/P/Bld) mL/min/{1.73_m2} Normal [facility] Comment on above: Order Comment: Order added by Discern Expert. Performed By: #### 2 [id number] #### [employer] [address] [place] [address] Auto Diffon 09-14-2018 Basophils #/vol (Bld) 0.0 E3/mcL Normal 0.0-0.2 [facility] Comment on above: Order Comment: Order Added by Discern Expert. Performed By: #### 2 [id number] #### [employer] [facility] [place] [address] Basophils/100 WBC (Bld) 0.6 % Normal 0.0-2.0 [facility] Comment on above: Order Comment: Order Added by Discern Expert. Performed By: #### 2 [id number] #### [employer] [address] [place] [address] 53453 Eos Absolute 0.1 E3/mcL Normal 0.0-0.7 [facility] Comment on above: Order Comment: Order Added by Kiana Expert. Performed By: #### 2 230504 #### [employer] [address] [place] [address] 86301 Eosinophils/100 WBC (Bld) 1.7 % Normal 0.0-11.0 [facility] Comment on above: Order Comment: Order Added by Discern Expert. Performed By: #### 2 [id number] #### [employer] [address] [place] [address] 47631 Lymphocytes #/vol (Bld) 1.2 E3/mcL Normal 1.2-3.4 [facility] Comment on above: Order Comment: Order Added by Discern Expert. Performed By: #### 2 [id number] #### [employer] [facility] [place] [address] Lymphocytes/100 WBC (Bld) 16.5 % Low 20.0-55.0 [facility] Comment on above: Order Comment: Order Added by Discern Expert. Performed By: #### 2 [id number] #### [employer] [address] [place] [address] [place] Absolute 0.8 E3/mcL High 0.0-0.7 [facility] Comment on above: Order Comment: Order Added by Discern Expert. Performed By: #### 2 [id number] #### [employer] [address] [place] [address] Monocytes/100 WBC (Bld) 11.1 % High 0.0-10.0 [facility] Comment on above: Order Comment: Order Added by Discern Expert. Performed By: #### 2 892103 #### [employer] [address] [place] [address] Neutro Absolute 5.1 E3/mcL Normal 1.4-6.5 [facility] Comment on above: Order Comment: Order Added by Discern Expert. Performed By: #### 2 [id number] #### [employer] [address] [place] [id number] Neutro Auto 70.1 % Normal 37.0-75.0 [facility] Comment on above: Order Comment: Order Added by Discern Expert. Performed By: #### 2 659168 #### [employer] [address] [place] [address] BMPon 09-14-2018 Anion gap molar conc 13 mmol/L Normal 10-20 [facility] Comment on above: Performed By: #### 2 [id number] #### [facility] [employer] [address] [place] [address] 10241 Calcium mass conc 9.2 mg/dL Normal 8.6-10.3 [facility] Comment on above: Performed By: #### 2 379154 #### [employer] [address] [place] [address] 53891 Chloride molar conc 105 mmol/L Normal 98-107 [facility] Comment on above: Performed By: #### 2 [id number] #### [facility] [employer] [address] [place] [address] 05362 CO2 molar conc 24.0 mmol/L Normal 21.0-32.0 [facility] Comment on above: Performed By: #### 2 826376 #### [facility] [employer] [address] [place] [address] Creatinine mass conc 1.2 mg/dL Normal 0.5-1.3 [facility] Comment on above: Performed By: #### 2 840476 #### [employer] [address] [place] [address] 06907 Glucose mass conc 129 mg/dL High 70-99 [facility] Comment on above: Performed By: #### 2 059997 #### [employer] [address] [place] [address] 92834 Potassium molar conc 3.9 mmol/L Normal 3.5-5.3 [facility] Comment on above: Performed By: #### 2 540157 #### [employer] [address] [place] [address] 33588 Sodium molar conc 138 mmol/L Normal 136-145 [facility] Comment on above: Performed By: #### 2 917804 #### [employer] [address] [place] [address] 32448 Urea nitrogen mass conc 19 mg/dL Normal 6-23 [facility] Comment on above: Performed By: #### 2 985492 #### [employer] [address] [place] [address] 11412 Urea nitrogen/Creatinine mass ratio 15.8 ratio Normal 5.4-30.0 [facility] Comment on above: Performed By: #### 2 034720 #### [employer] [address] [place] [address] 45396 CBC w/ Auto Diffon 9 Erythrocyte distribution width Ratio (RBC) 15.2 % High 11.5-14.5 [facility] Comment on above: Performed By: #### 2 211015 #### [employer] [address] [place] [address] 44101 Hematocrit Volume Fraction (Bld) 45.0 % Normal 42.0-52.0 [facility] Comment on above: Performed By: #### 2 875799 #### [employer] [address] [place] [address] Hemoglobin mass conc (Bld) 15.0 g/dL Normal 13.5-18.0 [facility] Comment on above: Performed By: #### 2 488578 #### [employer] [address] [place] [id number] MCH Entitic mass (RBC) 29.8 pg Normal 27.0-31.0 [facility] Comment on above: Performed By: #### 2 268332 #### [employer] [address] [place] [id number] MCHC mass conc (RBC) 33.4 g/dL Normal 33.0-37.0 [facility] Comment on above: Performed By: #### 2 549947 #### [employer] [address] [place] [phone] MCV Entitic volume (RBC) 89.4 fL Normal 78.0-100.0 [facility] Comment on above: Performed By: #### 2 649356 #### [employer] [address] [place] [id number] Platelet mean volume Entitic volume (Bld) 10.8 fL Normal 7.4-11.0 [facility] Comment on above: Performed By: #### 2 550780 #### [employer] [address] [place] [id number] Platelets #/vol (Bld) 158 E3/mcL Normal 130-400 [facility] Comment on above: Performed By: #### 2 465266 #### [employer] [address] [place] [phone] RBC #/vol (Bld) 5.04 E6/mcL Normal 3.90-6.10 [facility] Comment on above: Performed By: #### 2 187235 #### [employer] [address] [place] [phone] WBC #/vol (Bld) 7.2 E3/mcL Normal 3.6-11.0 [facility] Comment on above: Performed By: #### 2 997599 #### [employer] [facility] [place] [id number] CT Head or Brain w/o Contras ton 09-14-2018 CT Head or Brain w/o Contrast Exam Date/Time: 09/14/2018 15:21 EDT Reason for Exam: Injury Report STUDY: CT Head or Brain w/o Contrast; 09/14/2018 3:21 pm INDICATION: Injury. COMPARISON: 11/28/2016 ACCESSION NUMBER(S): [id number] ORDERING CLINICIAN: Kirsty Nguyen TECHNIQUE: Volume acquisition [...] Signed by: Radha Olivarez MD Technologist: Michael [facility] CT Spine Cervical w/o Contra ston 09-14-2018 CT Spine Cervical w/o Contrast Exam Date/Time: 09/14/2018 15:22 EDT Reason for Exam: Trauma Report STUDY: CT Spine Cervical w/o Contrast; 09/14/2018 3:22 pm INDICATION: Trauma. COMPARISON: None. ACCESSION NUMBER(S): [id number] ORDERING CLINICIAN: Kirsty Nguyen TECHNIQUE: Axial CT [...] Radha Olivarez MD Technologist: IZAIAH Normal [facility] Glucose POCon 09-14-2018 Glucose mass conc 132 mg/dL High 70-99 [facility] Comment on above: Performed By: #### 2 115536 #### [employer] [facility] [place] [address] [id number] 09-14-2018 Hemoglobin A1c/Hemoglobin.total mass fraction (Bld) 6.9 % High 4.0-6.3 [facility] Comment on above: Performed By: #### 2 678653 #### [employer] [facility] [place] [id number] Magnesiumon 09-14-2018 Magnesium mass conc 2.0 Int._Unit/L Normal 1.6-2.4 [facility] Comment on above: Performed By: #### 2 893391 #### [employer] [address] [place] [address] PTon 09-14-2018 INR Coag RelTime (PPP) 1.0 {INR} Normal 0.9-1.1 [facility] Comment on above: Result Comment: INR Recommended Therapeutic ranges: Prophylaxis/treatment of DVT and PE..........2.0-3.0 Prevention of systemic embolism.................2.0-3.0 Mechanical prosthetic values........................2.5-3.5 CRITICAL VALUE.........................................> 4.0 NOTE: New methodology started 05/16/2018 Performed By: #### 2 [id number] #### [employer] [address] [place] [address] Prothrombin time (PT) Coag time (PPP) 11.8 second(s) Normal 9.7-12.7 [facility] Comment on above: Result Comment: NOTE : New reference range established on 05/16/2018 due to change in methodology. Performed By: #### 2 441202 #### [employer] [address] [place] [phone] PTTon 09-14-2018 aPTT Coag time (Bld) 32 second(s) Normal 28-38 [facility] Comment on above: Result Comment: NOTE :New reference range established 05/16/2018 due to change in methodology. Performed By: #### 2 [id number] #### [employer] [address] [place] [address] TSHon 09-14-2018 Thyrotropin Qn 5.25 mcIU/mL Normal 0.30-5.60 [facility] Comment on above: Performed By: #### 2 [id number] #### [employer] [address] [place] [address] Troponin-Ion 09-14-2018 Troponin I.cardiac mass conc 0.02 ng/mL Normal 0.00-0.03 [facility] Comment on above: Performed By: #### 2 [id number] #### [employer] [address] [place] [address] UA Completeon 09-14-2018 Color Nom (U) Straw Normal Yellow [facility] Comment on above: Performed By: #### 2 553775 #### [employer] [address] [place] [phone] Glucose mass conc (U) Negative Normal Negative [facility] Comment on above: Performed By: #### 2 157352 #### [employer] [address] [place] [phone] Ketones Ql (U) Negative Normal Negative [facility] Comment on above: Performed By: #### 2 122800 #### [employer] [address] [place] [address] UA Blood Negative Normal Negative [facility] Comment on above: Performed By: #### 2 135159 #### [employer] [address] [place] [phone] UA Clarity Clear Normal Clear [facility] Comment on above: Performed By: #### 2 756965 #### [employer] [address] [place] [address] UA Hyal Cast 3-5 Abnormal 0-2 [facility] Comment on above: Performed By: #### 2 068038 #### [employer] [address] [place] [address] UA Leuk Est Negative Normal Negative [facility] Comment on above: Performed By: #### 2 114609 #### [employer] [address] [place] [address] UA Mucous Trace Abnormal Trace [facility] Comment on above: Performed By: #### 2 749709 #### [employer] [address] [place] [address] UA Nitrite Negative Normal Negative [facility] Comment on above: Performed By: #### 2 605832 #### [employer] [address] [place] [address] UA pH 5.0 Normal 4.6-8.0 [facility] Comment on above: Performed By: #### 2 525106 #### [employer] [address] [place] [address] UA Protein Negative Normal Negative [facility] Comment on above: Performed By: #### 2 856027 #### [employer] [address] [place] [address] UA Spec Grav 1.009 Normal 1.003-1.03 0 [facility] Comment on above: Performed By: #### 2 906077 #### [employer] [address] [place] [address] UA Urobilinogen Negative Normal [facility] Comment on above: Result Comment: Due to a manufacturing issue, low positive urobilinogen results may be fasely positive. Correlate with urine bilirubin and additional clinical/laboratory findings to assess the risk of hemolytic anemia or liver disease. If clinically indicated, repeat testing with an alternate method is available by contacting the laboratory within 24 hours. Performed By: #### 2 464224 #### [employer] [address] [place] [phone] Urobilinogen Qn (U) Negative Normal Negative [facility] Comment on above: Performed By: #### 2 781767 #### [place] [address] XR Chest AP Portableon 09-14 XR Chest AP Portable Exam Date/Time: 09/14/2018 15:43 EDT Reason for Exam: Chest pain Report STUDY: XR Chest AP Portable; 09/14/2018 3:43 pm INDICATION: Chest pain. COMPARISON: 12/25/2016 ACCESSION NUMBER(S): [id number] ORDERING CLINICIAN: Kirsty Nguyen FINDINGS: CARDIOMEDIASTINAL SILHOUETTE: [...] Signed by: Iva Vargas MD Technologist: Liya [facility] XR Humerus Lefton 09-14-2018 XR Humerus Left Exam Date/Time: 09/14/2018 15:43 EDT Reason for Exam: Pain, Traumatic Report STUDY: XR Humerus Left; XR Shoulder Complete Left;; 09/14/2018 3:43 pm INDICATION: Pain, Traumatic. COMPARISON: None. ACCESSION NUMBER(S): [id number]; [id number] ORDERING CLINICIAN: Kirsty Nguyen FINDINGS: Five views [...] pm Signed by: Iva Vargas MD Technologist: [facility] XR Knee Complete Righton XR Knee Complete Right Exam Date/Time: 09/14/2018 15:43 EDT Reason for Exam: Pain, Traumatic Report STUDY: XR Knee Complete Right;; 09/14/2018 3:43 pm INDICATION: Pain, Traumatic. COMPARISON: None. ACCESSION NUMBER(S): [id number] ORDERING CLINICIAN: Kirsty Nguyen FINDINGS: Four views right knee: There is no fracture, dislocation or joint effusion. There is swelling anterior to the patella and infrapatellar tendon. IMPRESSION: No acute bony abnormality right knee, soft tissue swelling. FINAL REPORT Dictated: 09/14/2018 4:19 pm Iva Vargas MD Signed (Electronic Signature): 09/14/2018 4:19 pm Signed by: Iva Vargas MD Technologist: [facility] XR Shoulder Complete Lefton 09-14-2018 XR Shoulder Complete Left Exam Date/Time: 09/14/2018 15:43 EDT Reason for Exam: Pain, Traumatic Report STUDY: XR Humerus Left; XR Shoulder Complete Left;; 09/14/2018 3:43 pm INDICATION: Pain, Traumatic. COMPARISON: None. ACCESSION NUMBER(S): [id number]; [id number] ORDERING CLINICIAN: Kirsty Nguyen FINDINGS: Five views [...] pm Signed by: Iva Vargas MD Technologist: [facility] eGFRon 09-14-2018 GFR/1.73 sq M predicted among non-blacks MDRD vol rate/area (S/P/Bld) mL/min/{1.73_m2} [facility] Comment on above: Order Comment: Order added by Discern Expert. Performed By: #### 1 [id number] #### [employer] [facility] [place] [id number] Vital Signs Date Time Vital Sign Value Performing Clinician Facility 01-01-2025 12:20-0400 Body temperature 98.7 [degF] Dr. Marycarmen Rodriguez DO Work Phone: [facility] 01-01-2025 12:20-0400 Diastolic blood pressure 78 mm[Hg] Dr. Marycarmen Rodriguez DO Work Phone: [facility] 01-01-2025 12:20-0400 Heart rate 78 /min Dr. Marycarmen Rodriguez DO Work Phone: [facility] 01-01-2025 12:20-0400 Respiratory rate 16 /min Dr. Marycarmen Rodriguez DO Work Phone: [facility] 01-01-2025 12:20-0400 SaO2% (BldA) [Mass fraction] 99 % Dr. Marycarmen Rodriguez DO Work Phone: [facility] 01-01-2025 12:20-0400 Systolic blood pressure 101 mm[Hg] Dr. Marycarmen Rodriguez DO Work Phone: [facility] 01-01-2025 08:53-0400 Body height 175.[address] Marycarmen Rodriguez DO Work Phone: [facility] 01-01-2025 08:53-0400 Body mass index (BMI) [Ratio] 34 kg/m2 Dr. Marycarmen Rodriguez DO Work Phone: [facility] 01-01-2025 08:53-0400 Body weight 104.[address] Marycarmen Rodriguez DO Work Phone: [facility] 12-26-2024 14:39-0400 Body temperature 98.7 [degF] Dr. Marycarmen Rodriguez DO Work Phone: [facility] 12-26-2024 14:39-0400 Diastolic blood pressure 68 mm[Hg] Dr. Marycarmen Rodriguez DO Work Phone: [facility] 12-26-2024 14:39-0400 Heart rate 88 /min Dr. Marycarmen Rodriguez DO Work Phone: [facility] 12-26-2024 14:39-0400 Respiratory rate 18 /min Dr. Marycarmen Rodriguez DO Work Phone: [facility] 12-26-2024 14:39-0400 SaO2% (BldA) [Mass fraction] 95 % Dr. Marycarmen Rodriguez DO Work Phone: [facility] 12-26-2024 14:39-0400 Systolic blood pressure 104 mm[Hg] Dr. Marycarmen Rodriguez DO Work Phone: [facility] 12-26-2024 07:42-0400 Inhaled oxygen concentration 21 % Dr. Marycarmen Rodriguez DO Work Phone: [facility] 12-26-2024 04:00-0400 Body mass index (BMI) [Ratio] 32 kg/m2 Dr. Marycarmen Rodriguez DO Work Phone: [facility] 12-26-2024 04:00-0400 Body weight 98.[address] Marycarmen Rodriguez DO Work Phone: [facility] 12-25-2024 11:30-0400 Body height 175.[address] Marycarmen Rodriguez DO Work Phone: [facility] 12-20-2024 14:00-0400 Diastolic blood pressure 65 mm[Hg] Dr. Marycarmen Rodriguez DO Work Phone: [facility] 12-20-2024 14:00-0400 Heart rate 63 /min Dr. Marycarmen Rodriguez DO Work Phone: [facility] 12-20-2024 14:00-0400 Respiratory rate 20 /min Dr. Marycarmen Rodriguez DO Work Phone: [facility] 12-20-2024 14:00-0400 SaO2% (BldA) [Mass fraction] 96 % Dr. Marycarmen Rodriguez DO Work Phone: [facility] 12-20-2024 14:00-0400 Systolic blood pressure 103 mm[Hg] Dr. Marycarmen Rodriguez DO Work Phone: [facility] 12-20-2024 13:15-0400 Body temperature 97.7 [degF] Dr. Marycarmen Rodriguez DO Work Phone: [facility] 12-20-2024 11:46-0400 Body mass index (BMI) [Ratio] 31.8 kg/m2 Dr. Marycarmen Rodriguez DO Work Phone: [facility] 12-20-2024 11:46-0400 Body weight 97.[address] Marycarmen Rodriguez DO Work Phone: [facility] 12-17-2024 15:10-0400 Body temperature 97.9 [degF] Dr. Marycarmen Rodriguez DO Work Phone: [facility] 12-17-2024 15:10-0400 Diastolic blood pressure 82 mm[Hg] Dr. Marycarmen Rodriguez DO Work Phone: [facility] 12-17-2024 15:10-0400 Heart rate 78 /min Dr. Marycarmen Rodriguez DO Work Phone: [facility] 12-17-2024 15:10-0400 Respiratory rate 18 /min Dr. Marycarmen Rodriguez DO Work Phone: [facility] 12-17-2024 15:10-0400 SaO2% (BldA) [Mass fraction] 99 % Dr. Marycarmen Rodriguez DO Work Phone: [facility] 12-17-2024 15:10-0400 Systolic blood pressure 100 mm[Hg] Dr. Marycarmen Rodriguez DO Work Phone: [facility] 12-17-2024 05:06-0400 Body mass index (BMI) [Ratio] 31.3 kg/m2 Dr. Marycarmen Rodriguez DO Work Phone: [facility] 12-17-2024 05:06-0400 Body weight 96.[address] Marycarmen Rodriguez DO Work Phone: [facility] 12-17-2024 02:53-0400 Inhaled oxygen concentration 21 % Dr. Marycarmen Rodriguez DO Work Phone: [facility] 12-16-2024 11:59-0400 Body height 175.[address] Marycarmen Rodriguez DO Work Phone: [facility] 12-12-2024 10:23-0400 Body height 175.[address] Marycarmen Rodriguez DO Work Phone: [facility] 12-12-2024 10:23-0400 Body mass index (BMI) [Ratio] 31.7 kg/m2 Dr. Marycarmen Rodriguez DO Work Phone: [facility] 12-12-2024 10:23-0400 Body weight 97.[address] Marycarmen Rodriguez DO Work Phone: [facility] 12-12-2024 10:23-0400 Diastolic blood pressure 74 mm[Hg] Dr. Marycarmen Rodriguez DO Work Phone: [facility] 12-12-2024 10:23-0400 Heart rate 75 /min Dr. Marycarmen Rodriguez DO Work Phone: [facility] 12-12-2024 10:23-0400 Respiratory rate 16 /min Dr. Marycarmen Rodriguez DO Work Phone: [facility] 12-12-2024 10:23-0400 Systolic blood pressure 106 mm[Hg] Dr. Marycarmen Rodriguez DO Work Phone: [facility] 12-08-2024 12:30-0400 Body temperature 97.7 [degF] Dr. Marycarmen Rodriguez DO Work Phone: [facility] 12-08-2024 12:30-0400 Diastolic blood pressure 81 mm[Hg] Dr. Marycarmen Rodriguez DO Work Phone: [facility] 12-08-2024 12:30-0400 Heart rate 72 /min Dr. Marycarmen Rodriguez DO Work Phone: [facility] 12-08-2024 12:30-0400 Respiratory rate 18 /min Dr. Marycarmen Rodriguez DO Work Phone: [facility] 12-08-2024 12:30-0400 SaO2% (BldA) [Mass fraction] 96 % Dr. Marycarmen Rodriguez DO Work Phone: [facility] 12-08-2024 12:30-0400 Systolic blood pressure 121 mm[Hg] Dr. Marycarmen Rodriguez DO Work Phone: [facility] 12-08-2024 01:20-0400 Inhaled oxygen concentration 21 % Dr. Marycarmen Rodriguez DO Work Phone: [facility] 12-07-2024 17:24-0400 Body height 175.[address] Marycarmen Rodriguez DO Work Phone: [facility] 12-07-2024 17:24-0400 Body mass index (BMI) [Ratio] 32.1 kg/m2 Dr. Marycarmen Rodriguez DO Work Phone: [facility] 12-07-2024 17:24-0400 Body weight 98.[address] Marycarmen Rodriguez DO Work Phone: [facility] 12-07-2024 16:00-0400 SaO2% (BldA) [Mass fraction] 97 % Dr. Marycarmen Rodriguez DO Work Phone: [facility] 12-07-2024 15:13-0400 Body temperature 98.2 [degF] Dr. Marycarmen Rodriguez DO Work Phone: [facility] 12-07-2024 15:13-0400 Diastolic blood pressure 61 mm[Hg] Dr. Marycarmen Rodriguez DO Work Phone: [facility] 12-07-2024 15:13-0400 Heart rate 22 /min Dr. Marycarmen Rodriguez DO Work Phone: [facility] 12-07-2024 15:13-0400 Respiratory rate 22 /min Dr. Marycarmen Rodriguez DO Work Phone: [facility] 12-07-2024 15:13-0400 Systolic blood pressure 114 mm[Hg] Dr. Marycarmen Rodriguez DO Work Phone: [facility] 12-07-2024 11:05-0400 Inhaled oxygen flow rate 2 L/min Dr. Marycarmen Rodriguez DO Work Phone: [facility] 12-07-2024 10:52-0400 Body height 175.[address] Marycarmen Rodriguez DO Work Phone: [facility] 12-07-2024 10:52-0400 Body mass index (BMI) [Ratio] 33.4 kg/m2 Dr. Marycarmen Rodriguez DO Work Phone: [facility] 12-07-2024 10:52-0400 Body weight 102.[address] Marycarmen Rodriguez DO Work Phone: [facility] 12-06-2024 12:45-0400 Body temperature 98 [degF] Dr. Marycarmen Rodriguez DO Work Phone: [facility] 12-06-2024 12:45-0400 Diastolic blood pressure 86 mm[Hg] Dr. Marycarmen Rodriguez DO Work Phone: [facility] 12-06-2024 12:45-0400 Heart rate 84 /min Dr. aMrycarmen Rodriguez DO Work Phone: [facility] 12-06-2024 12:45-0400 Respiratory rate 14 /min Dr. Marycarmen Rodriguez DO Work Phone: [facility] 12-06-2024 12:45-0400 SaO2% (BldA) [Mass fraction] 99 % Dr. Marycarmen Rodriguez DO Work Phone: [facility] 12-06-2024 12:45-0400 Systolic blood pressure 126 mm[Hg] Dr. Marycarmen Rodriguez DO Work Phone: [facility] 12-06-2024 06:00-0400 Body mass index (BMI) [Ratio] 33 kg/m2 Dr. Marycarmen Rodriguez DO Work Phone: [facility] 12-06-2024 06:00-0400 Body weight 101.[address] Marycarmen Rodriguez DO Work Phone: [facility] 12-06-2024 00:25-0400 Inhaled oxygen concentration 21 % Dr. Marycarmen Rodriguez DO Work Phone: [facility] 12-05-2024 08:28-0400 Heart rate 70 /min Dr. Marycarmen Rodriguez DO Work Phone: [facility] 12-05-2024 08:06-0400 Body temperature 97.6 [degF] Dr. Marycarmen Rodriguez DO Work Phone: [facility] 12-05-2024 08:06-0400 Diastolic blood pressure 80 mm[Hg] Dr. Marycarmen Rodriguez DO Work Phone: [facility] 12-05-2024 08:06-0400 Respiratory rate 18 /min Dr. Marycarmen Rodriguez DO Work Phone: [facility] 12-05-2024 08:06-0400 SaO2% (BldA) [Mass fraction] 100 % Dr. Marycarmen Rodriguez DO Work Phone: [facility] 12-05-2024 08:06-0400 Systolic blood pressure 123 mm[Hg] Dr. Marycarmen Rodriguez DO Work Phone: [facility] 12-05-2024 05:20-0400 Body mass index (BMI) [Ratio] 33.1 kg/m2 Dr. Marycarmen Rodriguez DO Work Phone: [facility] 12-05-2024 05:20-0400 Body weight 101.[address] Marycarmen Rodriguez DO Work Phone: [facility] 12-04-2024 22:55-0400 Inhaled oxygen concentration 21 % Dr. Marycarmen Rodriguez DO Work Phone: [facility] 12-04-2024 08:07-0400 Inhaled oxygen flow rate 2 L/min Dr. Marycarmen Rodriguez DO Work Phone: [facility] 12-02-2024 21:54-0400 Body height 175.[address] Marycarmen Rodriguez DO Work Phone: [facility] 12-02-2024 20:56-0400 Body temperature 98.8 [degF] Dr. Marycarmen Rodriguez DO Work Phone: [facility] 12-02-2024 20:56-0400 Diastolic blood pressure 78 mm[Hg] Dr. Marycarmen Rodriguez DO Work Phone: [facility] 12-02-2024 20:56-0400 Heart rate 77 /min Dr. Marycarmen Rodriguez DO Work Phone: [facility] 12-02-2024 20:56-0400 Respiratory rate 21 /min Dr. Marycarmen Rodriguez DO Work Phone: [facility] 12-02-2024 20:56-0400 SaO2% (BldA) [Mass fraction] 96 % Dr. Marycarmen Rodriguez DO Work Phone: [facility] 12-02-2024 20:56-0400 Systolic blood pressure 114 mm[Hg] Dr. Marycarmen Rodriguez DO Work Phone: [facility] 12-02-2024 20:21-0400 Inhaled oxygen flow rate 3 L/min Dr. Marycarmen Rodriguez DO Work Phone: [facility] 12-02-2024 20:16-0400 Body height 175.[address] Marycarmen Rodriguez DO Work Phone: [facility] 12-02-2024 20:16-0400 Body mass index (BMI) [Ratio] 35.9 kg/m2 Dr. Marycarmen Rodriguez DO Work Phone: [facility] 12-02-2024 20:16-0400 Body weight 110.[address] Marycarmen Rodriguez DO Work Phone: [facility] 12-02-2024 14:08-0400 Body temperature 98.8 [degF] Dr. Marycarmen Rodriguez DO Work Phone: [facility] 12-02-2024 14:08-0400 Diastolic blood pressure 72 mm[Hg] Dr. Marycarmen Rodriguez DO Work Phone: [facility] 12-02-2024 14:08-0400 Heart rate 78 /min Dr. Marycarmen Rodriguez DO Work Phone: [facility] 12-02-2024 14:08-0400 Respiratory rate 18 /min Dr. Marycarmen Rodriguez DO Work Phone: [facility] 12-02-2024 14:08-0400 SaO2% (BldA) [Mass fraction] 98 % Dr. Marycarmen Rodriguez DO Work Phone: [facility] 12-02-2024 14:08-0400 Systolic blood pressure 150 mm[Hg] Dr. Marycarmen Rodriguez DO Work Phone: [facility] 12-02-2024 14:01-0400 Inhaled oxygen flow rate 3 L/min Dr. Marycarmen Rodriguez DO Work Phone: [facility] 12-02-2024 08:32-0400 Body height 175.[address] Marycarmen Rodriguez DO Work Phone: [facility] 12-02-2024 08:32-0400 Body weight 109.[address] Marycarmen Rodriguez DO Work Phone: [facility] 12-02-2024 05:30-0400 Body mass index (BMI) [Ratio] 35.6 kg/m2 Dr. Marycarmen Rodriguez DO Work Phone: [facility] 11-30-2024 15:45-0400 Diastolic blood pressure 70 mm[Hg] Dr. Marycarmen Rodriguez DO Work Phone: [facility] 11-30-2024 15:45-0400 Systolic blood pressure 146 mm[Hg] Dr. Marycarmen Rodriguez DO Work Phone: [facility] 11-28-2024 09:15-0400 SaO2% (BldA) [Mass fraction] 94 % Dr. Marycarmen Rodriguez DO Work Phone: [facility] 11-28-2024 09:10-0400 Body temperature 97.5 [degF] Dr. Marycarmen Rodriguez DO Work Phone: [facility] 11-28-2024 09:10-0400 Diastolic blood pressure 64 mm[Hg] Dr. Marycarmen Rodriguez DO Work Phone: [facility] 11-28-2024 09:10-0400 Heart rate 86 /min Dr. Maryacrmen Rodriguez DO Work Phone: [facility] 11-28-2024 09:10-0400 Respiratory rate 18 /min Dr. Marycarmen Rodriguez DO Work Phone: [facility] 11-28-2024 09:10-0400 Systolic blood pressure 129 mm[Hg] Dr. Marycarmen Rodriguez DO Work Phone: [facility] 11-28-2024 05:13-0400 Body mass index (BMI) [Ratio] 35.2 kg/m2 Dr. Marycarmen Rodriguez DO Work Phone: [facility] 11-28-2024 05:13-0400 Body weight 108.[address] Marycarmen Rodriguez DO Work Phone: [facility] 11-27-2024 15:54-0400 Body height 175.[address] Marycarmen Rodriguez DO Work Phone: [facility] 11-27-2024 15:54-0400 Body mass index (BMI) [Ratio] 35.4 kg/m2 Dr. Marycarmen Rodriguez DO Work Phone: [facility] 11-27-2024 15:54-0400 Body weight 108.[address] Marycarmen Rodriguez DO Work Phone: [facility] 11-27-2024 13:45-0400 Diastolic blood pressure 68 mm[Hg] Dr. Marycarmen Rodriguez DO Work Phone: [facility] 11-27-2024 13:45-0400 Heart rate 75 /min Dr. Marycarmen Rodriguez DO Work Phone: [facility] 11-27-2024 13:45-0400 Respiratory rate 21 /min Dr. Marycarmen Rodriguez DO Work Phone: [facility] 11-27-2024 13:45-0400 SaO2% (BldA) [Mass fraction] 95 % Dr. Marycarmen Rodriguez DO Work Phone: [facility] 11-27-2024 13:45-0400 Systolic blood pressure 115 mm[Hg] Dr. Marycarmen Rodriguez DO Work Phone: [facility] 11-26-2024 21:38-0400 Body temperature 98.1 [degF] Dr. Marycaremn Rodriguez DO Work Phone: [facility] 11-26-2024 21:38-0400 Diastolic blood pressure 68 mm[Hg] Dr. Marycarmen Rodriguez DO Work Phone: [facility] 11-26-2024 21:38-0400 Heart rate 68 /min Dr. Marycarmen Rodriguez DO Work Phone: [facility] 11-26-2024 21:38-0400 Respiratory rate 18 /min Dr. Marycarmen Rodriguez DO Work Phone: [facility] 11-26-2024 21:38-0400 SaO2% (BldA) [Mass fraction] 98 % Dr. Marycarmen Rodriguez DO Work Phone: [facility] 11-26-2024 21:38-0400 Systolic blood pressure 132 mm[Hg] Dr. Marycarmen Rodriguez DO Work Phone: [facility] 11-26-2024 18:03-0400 Inhaled oxygen flow rate 2 L/min Dr. Marycarmen Rodriguez DO Work Phone: [facility] 11-26-2024 17:37-0400 Body height 175.[address] Marycarmen Rodriguez DO Work Phone: [facility] 11-26-2024 17:37-0400 Body mass index (BMI) [Ratio] 37.3 kg/m2 Dr. Marycarmen Rodriguez DO Work Phone: [facility] 11-26-2024 17:37-0400 Body weight 114.[address] Marycarmen Rodriguez DO Work Phone: [facility] 11-22-2024 10:41-0400 Body mass index (BMI) [Ratio] 35.9 kg/m2 Dr. Marycarmen Rodriguez DO Work Phone: [facility] 11-22-2024 10:41-0400 Body weight 110.[address] Marycarmen Rodriguez DO Work Phone: [facility] 11-22-2024 10:41-0400 Diastolic blood pressure 62 mm[Hg] Dr. Marycarmen Rodriguez DO Work Phone: [facility] 11-22-2024 10:41-0400 Heart rate 66 /min Dr. Marycarmen Rodriguez DO Work Phone: [facility] 11-22-2024 10:41-0400 Respiratory rate 20 /min Dr. Marycarmen Rodriguez DO Work Phone: [facility] 11-22-2024 10:41-0400 Systolic blood pressure 107 mm[Hg] Dr. Marycarmen Rodriguez DO Work Phone: [facility] 10-31-2024 07:44-0400 Body mass index (BMI) [Ratio] 35.4 kg/m2 Dr. Marycarmen Rodriguez DO Work Phone: [facility] 10-31-2024 07:44-0400 Body temperature 97.1 [degF] Dr. Marycarmen Rodriguez DO Work Phone: [facility] 10-31-2024 07:44-0400 Body weight 108.[address] Marycarmen Rodriguez DO Work Phone: [facility] 10-31-2024 07:44-0400 Diastolic blood pressure 75 mm[Hg] Dr. Marycarmen Rodriguez DO Work Phone: [facility] 10-31-2024 07:44-0400 Heart rate 64 /min Dr. Marycarmen Rodriguez DO Work Phone: [facility] 10-31-2024 07:44-0400 Respiratory rate 20 /min Dr. Marycarmen Rodriguez DO Work Phone: [facility] 10-31-2024 07:44-0400 SaO2% (BldA) [Mass fraction] 97 % Dr. Marycarmen Rodriguez DO Work Phone: [facility] 10-31-2024 07:44-0400 Systolic blood pressure 135 mm[Hg] Dr. Marycarmen Rodriguez DO Work Phone: [facility] 10-25-2024 08:10-0400 Body height 175.[address] Marycarmen Rodirguez DO Work Phone: [facility] 10-25-2024 08:10-0400 Body mass index (BMI) [Ratio] 35.9 kg/m2 Dr. Marycarmen Rodriguez DO Work Phone: [facility] 10-25-2024 08:10-0400 Body weight 110.[address] Marycarmen Rodriguez DO Work Phone: [facility] 10-25-2024 08:10-0400 Diastolic blood pressure 85 mm[Hg] Dr. Marycarmen Rodriguez DO Work Phone: [facility] 10-25-2024 08:10-0400 Heart rate 85 /min Dr. Marycarmen Rodriguez DO Work Phone: [facility] 10-25-2024 08:10-0400 Respiratory rate 18 /min Dr. Marycarmen Rodriguez DO Work Phone: [facility] 10-25-2024 08:10-0400 Systolic blood pressure 121 mm[Hg] Dr. Marycarmen Rodriguez DO Work Phone: [facility] 09-20-2024 09:15-0400 Body height 175.[address] Marycarmen Rodriguez DO Work Phone: [facility] 09-20-2024 09:15-0400 Body mass index (BMI) [Ratio] 35.6 kg/m2 Dr. Marycarmen Rodriguez DO Work Phone: [facility] 09-20-2024 09:15-0400 Body temperature 96.8 [degF] Dr. Marycarmen Rodriguez DO Work Phone: [facility] 09-20-2024 09:15-0400 Body weight 109.[address] Marycarmen Rodriguez DO Work Phone: [facility] 09-20-2024 09:15-0400 Diastolic blood pressure 77 mm[Hg] Dr. Marycarmen Rodriguez DO Work Phone: [facility] 09-20-2024 09:15-0400 Heart rate 66 /min Dr. Marycarmen Rodriguez DO Work Phone: [facility] 09-20-2024 09:15-0400 Respiratory rate 18 /min Dr. Marycarmen Rodriguez DO Work Phone: [facility] 09-20-2024 09:15-0400 SaO2% (BldA) [Mass fraction] 97 % Dr. Marycarmen Rodriguez DO Work Phone: [facility] 09-20-2024 09:15-0400 Systolic blood pressure 121 mm[Hg] Dr. Marycarmen Rodriguez DO Work Phone: [facility] 07-18-2024 06:00-0400 Body height 175.[address] Marycarmen Rodriguez DO Work Phone: [facility] 07-18-2024 06:00-0400 Body weight 104.[address] Marycarmen Rodriguez DO Work Phone: [facility] 07-18-2024 06:00-0400 Heart rate 69 /min Dr. Marycarmen Rodriguez DO Work Phone: [facility] 07-18-2024 06:00-0400 SaO2% (BldA) [Mass fraction] 97 % Dr. Marycarmen Rodriguez DO Work Phone: [facility] 07-03-2024 08:35-0500 Body mass index (BMI) [Ratio] 36.6 kg/m2 Dr. Marycarmen Rodriguez DO Work Phone: [facility] 07-03-2024 08:35-0500 Body temperature 97.5 [degF] Dr. Marycarmen Rodriguez DO Work Phone: [facility] 07-03-2024 08:35-0500 Body weight 109.[address] Marycarmen Rodriguez DO Work Phone: [facility] 07-03-2024 08:35-0500 Diastolic blood pressure 77 mm[Hg] Dr. Marycarmen Rodriguez DO Work Phone: [facility] 07-03-2024 08:35-0500 Heart rate 72 /min Dr. Marycarmen Rodriguez DO Work Phone: [facility] 07-03-2024 08:35-0500 Respiratory rate 20 /min Dr. Marycarmen Rodriguez DO Work Phone: [facility] 07-03-2024 08:35-0500 SaO2% (BldA) [Mass fraction] 96 % Dr. Marycarmen Rodriguez DO Work Phone: [facility] 07-03-2024 08:35-0500 Systolic blood pressure 116 mm[Hg] Dr. Marycarmen Rodriguez DO Work Phone: [facility] 04-17-2024 15:55-0500 Body height [address] Marycarmen Rodriguez DO Work Phone: [facility] 04-17-2024 15:55-0500 Body mass index (BMI) [Ratio] 36.9 kg/m2 Dr. Marycarmen Rodriguez DO Work Phone: [facility] 04-17-2024 15:55-0500 Body weight 110.[address] Marycarmen Rodriugez DO Work Phone: [facility] 04-17-2024 15:55-0500 Diastolic blood pressure 53 mm[Hg] Dr. Marycarmen Rodriguez DO Work Phone: [facility] 04-17-2024 15:55-0500 Heart rate 70 /min Dr. Marycarmen Rodriguez DO Work Phone: [facility] 04-17-2024 15:55-0500 Respiratory rate 18 /min Dr. Marycarmen Rodriguez DO Work Phone: [facility] 04-17-2024 15:55-0500 SaO2% (BldA) [Mass fraction] 94 % Dr. Marycarmen Rodriguez DO Work Phone: [facility] 04-17-2024 15:55-0500 Systolic blood pressure 91 mm[Hg] Dr. Marycarmen Rodriguez DO Work Phone: [facility] 03-27-2024 10:17-0500 Diastolic blood pressure 79 mm[Hg] Dr. Marycarmen Rodriguez DO Work Phone: [facility] 03-27-2024 10:17-0500 Heart rate 67 /min Dr. Marycarmen Rodriguez DO Work Phone: [facility] 03-27-2024 10:17-0500 Respiratory rate 18 /min Dr. Marycarmen Rodriguez DO Work Phone: [facility] 03-27-2024 10:17-0500 Systolic blood pressure 134 mm[Hg] Dr. Marycarmen Rodriguez DO Work Phone: [facility] 03-20-2024 08:28-0500 Body mass index (BMI) [Ratio] 37.5 kg/m2 Dr. Marycarmen Rodriguez DO Work Phone: [facility] 03-20-2024 08:28-0500 Body weight 112.[address] Marycarmen Rodriguez DO Work Phone: [facility] 03-20-2024 08:28-0500 Diastolic blood pressure 89 mm[Hg] Dr. Marycarmen Rodriguez DO Work Phone: [facility] 03-20-2024 08:28-0500 Heart rate 61 /min Dr. Marycarmen Rodriguez DO Work Phone: [facility] 03-20-2024 08:28-0500 Respiratory rate 18 /min Dr. Marycarmen Rodriguez DO Work Phone: [facility] 03-20-2024 08:28-0500 Systolic blood pressure 141 mm[Hg] Dr. Marycarmen Rodriguez DO Work Phone: [facility] 12-21-2022 07:51-0400 Body height 172.[address] Marycarmen Rodriguez Work Phone: [facility] 12-21-2022 07:51-0400 Body weight 85.[address] Marycarmen Rodriguez Work Phone: [facility] 12-18-2022 08:27-0400 Body mass index (BMI) [Ratio] 28.7 kg/m2 Dr. Marycarmen Rodriguez Work Phone: [facility] 12-15-2022 13:03-0400 Body mass index (BMI) [Ratio] 28.7 kg/m2 Dr. Marycarmen Rodriguez Work Phone: [facility] 12-15-2022 13:03-0400 Body weight 85.[address] Marycarmen Rodriguez Work Phone: [facility] 12-15-2022 13:03-0400 Diastolic blood pressure 92 mm[Hg] Dr. Marycarmen Rodriguez Work Phone: [facility] 12-15-2022 13:03-0400 Heart rate 72 /min Dr. Marycarmen Rodriguez Work Phone: [facility] 12-15-2022 13:03-0400 Respiratory rate 16 /min Dr. Marycarmen Rodriguez Work Phone: [facility] 12-15-2022 13:03-0400 Systolic blood pressure 156 mm[Hg] Dr. Marycarmen Rodriguez Work Phone: [facility] 10-13-2022 10:59-0400 Body height 172.72 cm [facility] 10-13-2022 10:59-0400 Body mass index (BMI) [Ratio] 25.4 kg/m2 [facility] 10-13-2022 10:59-0400 Body weight 75.74 kg [facility] 10-13-2022 10:59-0400 Diastolic blood pressure 75 mm[Hg] [facility] 10-13-2022 10:59-0400 Heart rate 65 /min [facility] 10-13-2022 10:59-0400 Respiratory rate 18 /min Marycarmen Marly [facility] 10-13-2022 10:59-0400 SaO2% (BldA) [Mass fraction] 94 % [facility] 10-13-2022 10:59-0400 Systolic blood pressure 143 mm[Hg] Mayrcarmen [facility] 09-21-2022 15:30-0400 Body mass index (BMI) [Ratio] 34.7 kg/m2 Marycarmen [facility] 09-21-2022 15:27-0400 Body temperature 98 [degF] Marycarmen Marly [facility] 09-21-2022 15:27-0400 Diastolic blood pressure 84 mm[Hg] Marycarmen [facility] 09-21-2022 15:27-0400 Heart rate 79 /min Marycarmen [facility] 09-21-2022 15:27-0400 Respiratory rate 17 /min Marycarmen Marly [facility] 09-21-2022 15:27-0400 SaO2% (BldA) [Mass fraction] 96 % [facility] 09-21-2022 15:27-0400 Systolic blood pressure 143 mm[Hg] Marycarmen [facility] 09-21-2022 06:25-0400 Body weight 103.6 kg Marycarmen [facility] 09-19-2022 01:30-0400 Inhaled oxygen concentration 21 % Marycarmen [facility] 09-01-2022 09:59-0400 Diastolic blood pressure 68 mm[Hg] Marycarmen [facility] 09-01-2022 09:59-0400 Heart rate 49 /min Marycarmen Marly [facility] 09-01-2022 09:59-0400 Systolic blood pressure 127 mm[Hg] Marycarmen [facility] 09-01-2022 09:57-0400 Body temperature 97.9 [degF] Marycarmen [facility] 09-01-2022 09:57-0400 Respiratory rate 18 /min Marycarmen [facility] 09-01-2022 09:57-0400 SaO2% (BldA) [Mass fraction] 93 % Marycarmen [facility] 09-01-2022 04:08-0400 Body mass index (BMI) [Ratio] 35.2 kg/m2 Marycarmen Marly [facility] 09-01-2022 04:08-0400 Body weight 108.2 kg Marycarmen Marly [facility] 08-31-2022 11:42-0400 Body height 175.26 cm Marycarmen Marly [facility] 08-19-2022 10:01-0400 Body height 175.26 cm Marycarmen Marly [facility] 08-19-2022 10:01-0400 Body mass index (BMI) [Ratio] 35.4 kg/m2 Marycarmen Marly [facility] 08-19-2022 10:01-0400 Body weight 109.03 kg Marycarmen Marly [facility] 08-19-2022 10:01-0400 Diastolic blood pressure 79 mm[Hg] [facility] 08-19-2022 10:01-0400 Heart rate 62 /min Marycarmen [facility] 08-19-2022 10:01-0400 [facility] 08-19-2022 10:01-0400 Systolic blood pressure 144 mm[Hg] [facility] 04-16-2022 12:43-0500 Body height 175.[address] Marycarmen Rodriguez Work Phone: [facility] 04-16-2022 12:43-0500 Body mass index (BMI) [Ratio] 35.2 kg/m2 Dr. Marycarmen Rodriguez Work Phone: [facility] 04-16-2022 12:43-0500 Body temperature 97 [degF] Dr. Marycarmen Rodriguez Work Phone: [facility] 04-16-2022 12:43-0500 Body weight 108.[address] Marycarmen Rodriguez Work Phone: [facility] 04-16-2022 12:43-0500 Diastolic blood pressure 78 mm[Hg] Dr. Marycarmen Rodriguez Work Phone: [facility] 04-16-2022 12:43-0500 Heart rate 66 /min Dr. Marycarmen Rodriguez Work Phone: [facility] 04-16-2022 12:43-0500 Respiratory rate 18 /min Dr. Marycarmen Rodriguez Work Phone: [facility] 04-16-2022 12:43-0500 SaO2% (BldA) [Mass fraction] 94 % Dr. Marycarmen Rodriguez Work Phone: [facility] 04-16-2022 12:43-0500 Systolic blood pressure 125 mm[Hg] Dr. Marycarmen Rodriguez Work Phone: [facility] 04-14-2022 10:27-0500 Body mass index (BMI) [Ratio] 35.2 kg/m2 Dr. Marycarmen Rodriguez Work Phone: [facility] 04-14-2022 10:27-0500 Body weight 108.[address] Marycarmen Rodriguez Work Phone: [facility] 04-14-2022 10:27-0500 Diastolic blood pressure 68 mm[Hg] Dr. Marycarmen Rodriguez Work Phone: [facility] 04-14-2022 10:27-0500 Heart rate 64 /min Dr. Marycarmen Rodriguez Work Phone: [facility] 04-14-2022 10:27-0500 Respiratory rate 18 /min Dr. Marycarmen Rodriguez Work Phone: [facility] 04-14-2022 10:27-0500 Systolic blood pressure 130 mm[Hg] Dr. Marycarmen Rodriguez Work Phone: [facility] 03-27-2022 13:25-0500 Body temperature 97.9 [degF] Dr. Marycarmen Rodriguez Work [facility]: [facility] [facility] 03-27-2022 13:25-0500 Diastolic blood pressure 86 mm[Hg] Dr. Marycarmen Rodriguez Work Phone: [facility] 03-27-2022 13:25-0500 Heart rate 86 /min Dr. Marycarmen Rodriguez Work Phone: [facility] 03-27-2022 13:25-0500 Respiratory rate 14 /min Dr. Marycarmen Rodriguez Work Phone: [facility] 03-27-2022 13:25-0500 SaO2% (BldA) [Mass fraction] 96 % Dr. Marycarmen Rodriguez Work Phone: [facility] 03-27-2022 13:25-0500 Systolic blood pressure 134 mm[Hg] Dr. Marycarmen Rodriguez Work Phone: [facility] 01-07-2022 11:07-0400 Body mass index (BMI) [Ratio] 34.9 kg/m2 Dr. Marycarmen Rodriguez Work Phone: [facility] Work Phone: 01-07-2022 11:07-0400 Body temperature 97.4 [degF] Dr. Marycarmen Rodriguez Work Phone: [facility] Work Phone: 01-07-2022 11:07-0400 Body weight 107.[address] Marycarmen Rodriguez Work Phone: [facility] Work Phone: 01-07-2022 11:07-0400 Diastolic blood pressure 87 mm[Hg] Dr. Marycarmen Rodriguez Work Phone: [facility] Work Phone: 01-07-2022 11:07-0400 Heart rate 60 /min Dr. Marycarmen Rodriguez Work Phone: [facility] Work Phone: 01-07-2022 11:07-0400 Respiratory rate 16 /min Dr. Marycarmen Rodriguez Work Phone: [facility] Work Phone: 01-07-2022 11:07-0400 SaO2% (BldA) [Mass fraction] 96 % Dr. Marycarmen Rodriguez Work Phone: [facility] Work Phone: 01-07-2022 11:07-0400 Systolic blood pressure 155 mm[Hg] Dr. Marycarmen Rodriguez Work Phone: [facility] Work Phone: 11-21-2021 10:24-0400 Body height 175.[address] Marycarmen Rodriguez Work Phone: [facility] Work Phone: 11-21-2021 10:24-0400 Body mass index (BMI) [Ratio] 34.9 kg/m2 Dr. Marycarmen Rodriguez Work Phone: [facility] Work Phone: 11-21-2021 10:24-0400 Body weight 107.[address] Marycarmen Rodriguez Work Phone: [facility] Work Phone: 11-21-2021 10:24-0400 Diastolic blood pressure 77 mm[Hg] Dr. Marycarmen Rodriguez Work Phone: [facility] Work Phone: 11-21-2021 10:24-0400 Heart rate 61 /min Dr. Marycarmen Rodriguez Work Phone: [facility] Work Phone: 11-21-2021 10:24-0400 Respiratory rate 18 /min Dr. Marycarmen Rodriguez Work Phone: [facility] Work Phone: 11-21-2021 10:24-0400 SaO2% (BldA) [Mass fraction] 97 % Dr. Marycarmen Rodriguez Work Phone: [facility] Work Phone: 11-21-2021 10:24-0400 Systolic blood pressure 138 mm[Hg] Dr. Marycarmen Rodriguez Work Phone: [facility] Work Phone: 11-16-2021 16:49-0400 Diastolic blood pressure 87 mm[Hg] Dr. Marycarmen Rodriguez Work Phone: [facility] Work Phone: 11-16-2021 16:49-0400 Heart rate 53 /min Dr. Marycarmen Rodriguez Work Phone: [facility] Work Phone: 11-16-2021 16:49-0400 Respiratory rate 16 /min Dr. Marycarmen Rodriguez Work Phone: [facility] Work Phone: 11-16-2021 16:49-0400 SaO2% (BldA) [Mass fraction] 93 % Dr. Marycarmen Rodriguez Work Phone: [facility] Work Phone: 11-16-2021 16:49-0400 Systolic blood pressure 117 mm[Hg] Dr. Marycarmen Rodriguez Work Phone: [facility] Work Phone: 11-16-2021 12:55-0400 Body mass index (BMI) [Ratio] 33.2 kg/m2 Dr. Marycarmen Rodriguez Work Phone: [facility] Work Phone: 11-16-2021 12:55-0400 Body temperature 97.6 [degF] Dr. Marycarmen Rodriguez Work Phone: [facility] Work Phone: 11-16-2021 12:55-0400 Body weight 102.[address] Marycarmen Rodriguez Work Phone: [facility] Work Phone: 09-16-2021 10:37-0400 Body height 175.[address] Marycarmen Rodriguez Work Phone: [facility] Work Phone: 09-16-2021 10:37-0400 Body mass index (BMI) [Ratio] 35.7 kg/m2 Dr. Marycarmen Rodriguez Work Phone: [facility] Work Phone: 09-16-2021 10:37-0400 Body weight 109.[address] Marycarmen Rodriguez Work Phone: [facility] Work Phone: 09-16-2021 10:37-0400 Diastolic blood pressure 69 mm[Hg] Dr. Marycarmen Rodriguez Work Phone: [facility] Work Phone: 09-16-2021 10:37-0400 Heart rate 50 /min Dr. Marycarmen Rodriguez Work Phone: [facility] Work Phone: 09-16-2021 10:37-0400 Respiratory rate 18 /min Dr. Marycarmen Rodriguez Work Phone: [facility] Work Phone: 09-16-2021 10:37-0400 Systolic blood pressure 122 mm[Hg] Dr. Marycarmen Rodriguez Work Phone: [facility] Work Phone: 08-01-2021 10:02-0400 Body mass index (BMI) [Ratio] 35.7 kg/m2 Dr. Marycarmen Rodriguez Work Phone: [facility] Work Phone: 08-01-2021 10:02-0400 Body weight 109.[address] Marycarmen Rodriguez Work Phone: [facility] Work Phone: 08-01-2021 10:02-0400 Diastolic blood pressure 81 mm[Hg] Dr. Marycarmen Rodriguez Work Phone: [facility] Work Phone: 08-01-2021 10:02-0400 Heart rate 59 /min Dr. Marycarmen Rodriguez Work Phone: [facility] Work Phone: 08-01-2021 10:02-0400 Respiratory rate 18 /min Dr. Marycarmen Rodriguez Work Phone: [facility] Work Phone: 08-01-2021 10:02-0400 SaO2% (BldA) [Mass fraction] 97 % Dr. Marycarmen Rodriguez Work Phone: [facility] Work Phone: 08-01-2021 10:02-0400 Systolic blood pressure 133 mm[Hg] Dr. Marycarmen Rodriguez Work Phone: [facility] Work Phone: 08-01-2021 10:02-0400 Body height 175.[address] Marycarmen Rodriguez Work Phone: [facility] Work Phone: 08-01-2021 10:02-0400 Body mass index (BMI) [Ratio] 35.7 kg/m2 Dr. Marycarmen Rodriguez Work Phone: [facility] Work Phone: 08-01-2021 10:02-0400 Body weight 109.[address] Marycarmen Rodriguez Work Phone: [facility] Work Phone: 08-01-2021 10:02-0400 Diastolic blood pressure 81 mm[Hg] Dr. Marycarmen Rodriguez Work Phone: [facility] Work Phone: 08-01-2021 10:02-0400 Heart rate 59 /min Dr. Marycarmen Rodriguez Work Phone: [facility] Work Phone: 08-01-2021 10:02-0400 Respiratory rate 18 /min Dr. Marycarmen Rodriguez Work Phone: [facility] Work Phone: 08-01-2021 10:02-0400 SaO2% (BldA) [Mass fraction] 97 % Dr. Marycarmen Rodriguez Work Phone: [facility] Work Phone: 08-01-2021 10:02-0400 Systolic blood pressure 133 mm[Hg] Dr. Marycarmen Rodriguez Work Phone: [facility] Work Phone: 06-10-2021 18:38-0500 Diastolic blood pressure 75 mm[Hg] Dr. Marycarmen Rodriguez Work Phone: [facility] Work Phone: 06-10-2021 18:38-0500 Heart rate 57 /min Dr. Marycarmen Rodriguez Work Phone: [facility] Work Phone: 06-10-2021 18:38-0500 Respiratory rate 14 /min Dr. Marycarmen Rodriguez Work Phone: [facility] Work Phone: 06-10-2021 18:38-0500 SaO2% (BldA) [Mass fraction] 96 % Dr. Marycarmen Rodriguez Work Phone: [facility] Work Phone: 06-10-2021 18:38-0500 Systolic blood pressure 121 mm[Hg] Dr. Marycarmen Rodriguez Work Phone: [facility] Work Phone: 06-10-2021 13:36-0500 Body mass index (BMI) [Ratio] 34 kg/m2 Dr. Marycarmen Rodriguez Work Phone: [facility] Work Phone: 06-10-2021 13:36-0500 Body temperature 97 [degF] Dr. Marycarmen Rodriguez Work Phone: [facility] Work Phone: 06-10-2021 13:36-0500 Body weight 104.[address] Marycarmen Rodriguez Work Phone: [facility] Work Phone: 05-19-2021 16:55-0500 Respiratory rate 16 /min Dr. Marycarmen Rodriguez Work Phone: [facility] Work Phone: 05-19-2021 14:43-0500 Body temperature 96.5 [degF] Dr. Marycarmen Rodriguez Work Phone: [facility] Work Phone: 05-19-2021 14:43-0500 Diastolic blood pressure 94 mm[Hg] Dr. Marycarmen Rodriguez Work Phone: [facility] Work Phone: 05-19-2021 14:43-0500 Heart rate 63 /min Dr. Marycarmen Rodriguez Work Phone: [facility] Work Phone: 05-19-2021 14:43-0500 SaO2% (BldA) [Mass fraction] 99 % Dr. Marycarmen Rodriguez Work Phone: [facility] Work Phone: 05-19-2021 14:43-0500 Systolic blood pressure 172 mm[Hg] Dr. Marycarmen Rodriguez Work Phone: [facility] Work Phone: 05-19-2021 14:42-0500 Body mass index (BMI) [Ratio] 34 kg/m2 Dr. Marycarmen Rodriguez Work Phone: [facility] Work Phone: 05-19-2021 14:42-0500 Body weight 104.[address] Marycarmen Rodriguez Work Phone: [facility] Work Phone: 12-26-2020 10:29-0400 Diastolic blood pressure 76 mm[Hg] Eladio Ingram MD Work Phone: [facility] 12-26-2020 10:29-0400 Systolic blood pressure 141 mm[Hg] Eladio Ingram MD Work Phone: [facility] 12-26-2020 10:24-0400 Body height 175.3 cm Eladio Ingram MD Work Phone: [facility] 12-26-2020 10:24-0400 Body mass index (BMI) [Ratio] 33.67 kg/m2 Eladio Ingram MD Work Phone: [facility] 12-26-2020 10:24-0400 Body weight 103.42 kg Eladio Ingram MD Work Phone: [facility] 12-26-2020 10:24-0400 Heart rate 59 /min Eladio Ingram MD Work Phone: [facility] 12-26-2020 10:24-0400 SaO2% (BldA) [Mass fraction] 95 % Eladio Ingram MD Work Phone: [facility] 10-09-2020 10:53-0400 Diastolic blood pressure 72 mm[Hg] Sagar Leticiajennifer [employer] Work Phone: [facility] 10-09-2020 10:53-0400 Systolic blood pressure 134 mm[Hg] Sagar Kellyan [employer] Work Phone: [facility] 10-09-2020 09:59-0400 Body mass index (BMI) [Ratio] 34.6 kg/m2 Sagar Kellyjennifer [employer] Work Phone: [facility] 10-09-2020 09:59-0400 Body weight 106.28 kg Sagar Kellyan [employer] Work Phone: [facility] 10-09-2020 09:59-0400 Heart rate 58 /min Sagar Schwan [employer] Work Phone: [facility] 10-09-2020 09:59-0400 Respiratory rate 16 /min Sagar Leticiaan [employer] Work Phone: [facility] 10-09-2020 09:59-0400 SaO2% (BldA) [Mass fraction] 94 % Sagar Acuña [employer] Work Phone: [facility] 12-17-2016 11:21-0400 BMI (Body Mass Index) 32.99 kg/m2 Eladio Ingram [facility] Work Phone: 12-17-2016 11:21-0400 BP Diastolic 82 mm[Hg] Eladio Ingram [facility] Work Phone: 12-17-2016 11:21-0400 BP Systolic 150 mm[Hg] Eladio Ingram [facility] Work Phone: 12-17-2016 11:21-0400 Height 175.3 cm Eladio Ingram [facility] Work Phone: 12-17-2016 11:21-0400 Pulse (Heart Rate) 70 /min Eladio Ingram [facility] Work Phone: 12-17-2016 11:21-0400 Pulse Oximetry 97 % Eladio Ingram [facility] Work Phone: 12-17-2016 11:21-0400 Weight 101.33 kg Eladio Ingram [facility] Work Phone: Encounters Encounter Date Encounter Type Care Provider Facility Start: 03-26-2025 ambulatory [facility] Facility: [facility] Start: 03-05-2025 End: 03-05-2025 ambulatory [facility] Facility:[facility] Start: 02-21-2025 End: 02-21-2025 Emergency department patient visit [facility] Facility:[facility] Start: 02-19-2025 End: 02-19-2025 Emergency department patient visit [facility] Facility:[facility] Start: 02-09-2025 End: 02-09-2025 ambulatory [facility] Facility:[facility] Start: 02-06-2025 End: 02-07-2025 ambulatory [facility] Facility:[facility] Start: 02-02-2025 End: 02-02-2025 ambulatory [facility] Facility:[facility] Start: 01-20-2025 End: 01-20-2025 Emergency department patient visit [facility] Facility:[facility] Start: 01-15-2025 End: 01-15-2025 ambulatory [facility] Facility:[facility] Start: 01-11-2025 End: 01-11-2025 ambulatory [facility] Start: 01-03-2025 End: 01-10-2025 Evaluation and management of inpatient DR JEFFREY SPIVEY MD [facility] Start: 01-03-2025 End: 01-03-2025 ambulatory [facility] Start: 01-03-2025 End: 01-03-2025 Emergency department patient visit [facility] Facility:[facility] Start: 01-02-2025 End: 01-02-2025 ambulatory [facility] Facility:[facility] Start: 01-01-2025 End: 01-01-2025 Dr. Marycarmen Rodriguez DO Work Phone: -Emergency Department Work Phone: Start: 01-01-2025 End: 01-01-2025 Emergency department patient visit Dr. Marycarmen Rodriguez DO Work Phone: -Emergency Department Start: 12-29-2024 ambulatory [facility] Facility: [facility] Start: 12-28-2024 ambulatory [facility] Facility: [facility] Start: 12-28-2024 Boyd Garcia Start: 12-27-2024 End: 12-27-2024 ambulatory [facility] Facility:[facility] Start: 12-27-2024 ambulatory [facility] Facility: [facility] Start: 12-27-2024 Boyd Garcia Start: 12-26-2024 Dr. Eladio Melendez MD -[facility] Work Phone: Start: 12-25-2024 ambulatory [facility] Facility: [facility] Start: 12-25-2024 [facility] Start: 12-25-2024 ambulatory Opal Schneider ty:[facility] Start: 12-25-2024 Dr. Eladio Melendez MD -[facility] Work Phone: Start: 12-24-2024 ambulatory [facility]: [facility] Start: 12-24-2024 End: 12-26-2024 Evaluation and management of inpatient [facility] Facility:[facility] Start: 12-24-2024 End: 12-26-2024 Dr. Eladio Melendez MD -Progressive Care Unit Work Phone: Start: 12-21-2024 End: 12-21-2024 ambulatory [facility] Facility:[facility] Start: 12-21-2024 Boyd Rock MD [facility] Jeanine Garcia Start: 12-20-2024 End: 12-20-2024 ambulatory [facility] Start: 12-20-2024 End: 12-20-2024 Dr. Jody Servin MD -Emergency [facility] Work Phone: Start: 12-20-2024 End: 12-20-2024 Emergency department patient visit Jody Servin Facility:[facility] Start: 12-20-2024 ambulatory [facility] Facility: [facility] Start: 12-20-2024 Boyd Rock MD [facility] Jeanine Garcia Start: 12-18-2024 End: 12-18-2024 ambulatory [facility] Facility:[facility] Start: 12-18-2024 ambulatory [facility] Facility: [facility] Start: 12-18-2024 Boyd Rock MD [facility] Jeanine Garcia Start: 12-17-2024 Dr. Marycarmen collins DO -[facility] Work Phone: Start: 12-16-2024 Dr. Marycarmen collins DO -[facility] Work Phone: Start: 12-16-2024 Dr. Lance Rodriguez MD -[facility] Start: 12-15-2024 End: 12-17-2024 Evaluation and management of inpatient Dr. Marycarmen Rodriguez DO Work Phone: -Progressive Care Unit Start: 12-15-2024 ambulatory Samer Azouz Facility:[facility] Start: 12-15-2024 End: 12-17-2024 Dr. Marycarmen Marlow DO -Progressive Care Unit Work Phone: Start: 12-13-2024 ambulatory [facility] Facility: [facility] Start: 12-13-2024 Boyd Rock MD -[facility] Start: 12-12-2024 End: 12-12-[address] Marycarmen Rodriguez DO Work Phone: -[facility] Start: 12-12-2024 End: 12-12-2024 Dr. Boyd Rock MD -[facility] Work Phone: Start: 12-12-2024 End: 12-12-[address] Marycarmen Rodriguez DO Work Phone: -Laboratory Start: 12-12-2024 End: 12-12-2024 Gustabo Pérez [employer] -Laboratory Work Phone: Start: 12-12-2024 End: 12-12-2024 Gustabo Pérez [employer] -[facility] Work Phone: Start: 12-12-2024 End: 12-12-[address] Marycarmen Rodriguez DO Work Phone: -[facility] Start: 12-12-2024 End: 12-12-2024 ambulatory [facility] Facility:[facility] Start: 12-08-2024 Dr. Alex Sanon MD -[facility] Work Phone: Start: 12-07-2024 End: 12-07-2024 ambulatory [facility] Facility:[facility] Start: 12-07-2024 End: 12-07-2024 Tess Balderas [employer] -[facility] Work Phone: Start: 12-07-2024 End: 12-08-[address] Marycarmen Rodriguez DO Work Phone: -Progressive Care Unit Start: 12-07-2024 End: 12-08-2024 ambulatory Alex Sanon Facility:[facility] Start: 12-07-2024 End: 12-08-2024 Dr. Shaan Santos [facility] Work Phone: Start: 12-06-2024 End: 12-06-2024 Dr. Marcin Araujo MD -Pulmonary Services/Neurology Work Phone: Start: 12-06-2024 End: 12-06-[address] Marycarmen Rodriguez DO Work Phone: -Pulmonary Services/Neurology Start: 12-06-2024 Dr. Alex Sanon MD -[facility] Work Phone: Start: 12-05-2024 Dr. Aelx Sanon MD [facility] Work Phone: Start: 12-05-[address] Marycarmen evra DO Work Phone: [facility] Start: 12-05-2024 Dr. Marcin Araujo MD [facility] Start: 12-04-2024 Dr. Abraham Ridley [facility] Work Phone: Start: 12-04-2024 Dr. Marcin Araujo MD [facility] Start: 12-03-2024 Dr. Ramonita Herron [facility] Work Phone: Start: 12-03-2024 Dr. Marcin Araujo MD [facility] Start: 12-03-2024 ambulatory Mickey Coffman Facility :[facility] Start: 12-03-2024 End: 12-06-2024 Evaluation and management of inpatient Dr. Marycarmen Rodriguez DO Work Phone: -Progressive Care Unit Start: 12-03-2024 End: 12-06-2024 Dr. Alex Sanon MD -[facility] Care [facility] Work Phone: Start: 12-02-2024 Dr. Marcin Araujo MD [facility] Start: 12-02-2024 ambulatory [facility] Facility :[facility] Start: 12-02-2024 Evaluation and manag ement of inpatient Dr. Marycarmen Rodriguez DO Work Phone: -Intensive Care Unit Start: 12-02-2024 Dr. Abraham Ridley DO -Intensive Care Unit Work Phone: Start: 12-02-2024 Dr. Nickie Danielson DO [facility] Work Phone: Start: 12-01-2024 Dr. Marcin Araujo MD -[facility] Start: 11-30-2024 End: 12-02-2024 Evaluation and management of inpatient Dr. Marycarmen Rodriguez DO Work Phone: -Intensive Care Unit Start: 11-30-2024 ambulatory Nickie Danielson Facility:[facility] Start: 11-30-2024 End: 12-02-2024 Dr. Abraham Ridley DO -Intensive Care Unit Work Phone: Start: 11-27-2024 Dr. Jose Hay MD -[facility] Start: 11-27-[address] Marycarmen vera DO Work Phone: -[facility] Start: 11-27-2024 End: 11-28-2024 ambulatory Jose Jose Armando Facility:[facility] Start: 11-27-2024 End: 11-28-2024 observation [...] Dr. Marycarmen Rodriguez DO Work Phone: -[facility] Start: 11-22-2024 End: 11-22-2024 Gustabo Pérez [employer] -[facility] Work Phone: Start: 11-22-2024 End: 11-22-2024 Gustabo Pérez [employer] -[facility] Work Phone: Start: 11-22-2024 End: 11-22-[address] Marycarmen Rodriguez DO Work Phone: -[facility] Start: 11-22-2024 End: 11-22-2024 ambulatory Gustabo Pérez [employer] Facility:[facility] Start: 11-20-2024 End: 11-20-[address] Marycarmen Rodriguez DO Work Phone: -[facility] Start: 11-20-2024 End: 11-20-2024 Dr. Brooks Carpenter MD -[facility] Work Phone: Start: 11-20-2024 End: 11-20-2024 ambulatory Brooks Carpenter Facility:[facility] Start: 11-13-2024 ambulatory Gustabo Pérez [employer] Facility :[facility] Start: 11-13-2024 Non-patient / Non-visit Dr. Jose colon MD -[facility] Start: 11-13-2024 Dr. Jose Hay MD -[facility] Start: 11-10-2024 End: 11-10-[address] Marycarmen Rodriguez DO Work Phone: -Sleep Lab Start: 11-10-2024 End: 11-10-2024 Patient encounter procedure [employer] Maren Olivas -Sleep Lab Work Phone: Start: 11-10-2024 End: 11-10-2024 [employer] Maren Olivas -Sleep Lab Work Phone: Start: 11-10-2024 ambulatory Gustabo Pérez [employer] Facility :[facility] Start: 11-10-2024 Non-patient / Non-visit Dr. Lance pereira MD -[facility] Work Phone: Start: 11-10-2024 Dr. Lance Rodriguez MD -[facility] Work Phone: Start: 11-10-2024 End: 11-10-[address] Marycarmen Rodriguez DO Work Phone: -Cardiovascular Services Start: 11-10-2024 End: 11-10-2024 Patient encounter procedure Gustabo Pérez [employer] -Cardiovascular Services Work Phone: Start: 11-10-2024 End: 11-10-2024 Gustabo Pérez [employer]C -Cardiovascular Services Work Phone: Start: 11-09-2024 End: 11-10-[address] Marycarmen Rodriguez DO Work Phone: -Laboratory Ritesh Calvillo [facility] Start: 11-09-2024 End: 11-09-[address] Marycarmen Rodriguez DO -Laboratory Ritesh Calvillo [facility] Start: 11-09-2024 End: 11-09-2024 Dr. Marycarmen Rodriguez DO -[facility] Ritesh Calvillo [facility] Start: 11-09-2024 End: 11-09-2024 ambulatory Marycarmen Rodriguez Facility:[facility] Start: 10-31-2024 End: 10-31-2024 Patient encounter procedure ELIAZAR Olivas -[facility] Work Phone: Start: 10-31-2024 End: 10-31-2024 [employer] Maren Olivas [facility] Work Phone: Start: 10-31-2024 End: 10-31-[address] Marycarmen Rodriguez DO Work Phone: -[facility] Start: 10-26-2024 End: 10-26-[address] Marycarmen Rodriguez DO Work Phone: -Sleep Lab Start: 10-26-2024 End: 10-26-2024 Patient encounter procedure Marni Horn [employer] -Sleep Lab Work Phone: Start: 10-26-2024 End: 10-26-2024 Marni Horn [employer] -Sleep Lab Work Phone: Start: 10-25-2024 End: 10-25-2024 Patient encounter procedure Gustabo Pérez [employer] -[facility] Work Phone: Start: 10-25-2024 End: 10-25-2024 Gustabo Gao Beto [employer] -[facility] Work Phone: Start: 10-25-2024 End: 10-26-[address] Marycarmen Rodriguez DO Work Phone: [facility] Work Phone: Start: 10-18-2024 End: 10-18-[address] Marycarmen Rodriguez DO Work Phone: [facility] [facility] Work Phone: Start: 10-18-2024 End: 10-18-2024 Patient encounter procedure Marni Horn [employer] II FARMWORKER-C -Sleep Lab Work Phone: Start: 10-18-2024 End: 10-18-2024 Marni Horn [employer] FARMWORKER-C -Sleep Lab Work Phone: Start: 10-18-2024 End: 10-18-[address] Marycarmen Rodriguez DO Work Phone: [facility] Work Phone: Start: 10-18-2024 End: 10-18-[address] Brooks Carpenter MD -Laboratory Work Phone: Start: 10-18-2024 End: 10-18-2024 Dr. Brooks Carpenter MD -Laboratory Work Phone: Start: 10-18-2024 End: 10-18-2024 ambulatory Marycarmen Rodriguez Facility:[facility] Start: 09-29-2024 End: 09-29-[address] Marycarmen Rodriguez DO Work Phone: [facility] Work Phone: Start: 09-29-2024 End: 09-29-[address] Marycarmen Rodriguez DO -Laboratory [place] Work Phone: Start: 09-29-2024 End: 09-29-2024 Dr. Marycarmen Rodriguez DO -Laboratory Ameyaenidw ирина Work Phone: Start: 09-29-2024 End: 09-29-2024 ambulatory [facility] Facility:[facility] Start: 09-22-2024 End: 09-22-[address] Marycarmen Rodriguez DO Work Phone: [facility] Work Phone: Start: 09-22-2024 End: 09-22-2024 Patient encounter procedure Marni Horn [employer] FARMWORKER-C -Sleep Lab Work Phone: Start: 09-22-2024 End: 09-22-2024 Marni Horn [employer] FARMWORKER-C -Sleep Lab Work Phone: Start: 09-22-2024 End: 09-22-2024 ambulatory [facility] Facility:[facility] Start: 09-20-2024 End: 09-20-[address] Marycarmen Rodriguez DO Work Phone: [facility] Work Phone: Start: 09-20-2024 End: 09-20-2024 Patient encounter procedure DIVERS[employer]IED [employer]OPS II FARMWORKER Maren Olivas -Laboratory Work Phone: Start: 09-20-2024 End: 09-20-2024 DIV[employer]IED [employer]OPS II FARMWORKER Maren Olivas -Laboratory Work Phone: Start: 09-20-2024 End: 09-20-2024 Patient encounter procedure DIVERSIFIED CROPS II FARMWORKER Maren Olivas -[facility] Work Phone: Start: 09-20-2024 End: 09-20-2024 DIVERSIFIED CROPS II FARMWORKER Maren Olivas -[place] [facility] Work Phone: Start: 09-20-2024 End: 09-20-[address] Marycarmen Rodriguez DO Work Phone: [facility] Work Phone: Start: 09-20-2024 End: 09-20-2024 ambulatory Marycarmen Marly Facility:[facility] Start: 08-03-2024 End: 08-03-[address] Marycarmen Rodriguez DO Work Phone: [facility] Work Phone: Start: 08-03-2024 End: 08-03-2024 Patient encounter procedure Marni Horn NP-C -Sleep Lab Work Phone: Start: 08-03-2024 End: 08-03-2024 Marni Horn [employer]OPS II FARMWORKER-C -Sleep Lab Work Phone: Start: 08-03-2024 End: 08-03-2024 ambulatory Marycarmen Marly Facility:[facility] Start: 07-18-2024 ambulatory Marycarmen [facility] Facility: [facility] Start: 07-18-2024 Non-patient / Non-visit Dr. Zen Olguin own DO -[facility] Start: 07-18-2024 End: 07-18-[address] Marycarmen Rodriguez DO Work Phone: [facility] Work Phone: Start: 07-18-2024 End: 07-18-2024 Patient encounter procedure Marni Horn NP-C -Pulmonary Services/Neurology Work Phone: Start: 07-17-2024 Non-patient / Non-visit Dr. Zen Olguin own DO -[facility] Start: 07-17-2024 End: 07-18-[address] Marycarmen Rodriguez DO Work Phone: [facility] Work Phone: Start: 07-17-2024 End: 07-17-2024 Patient encounter procedure Marni Horn NP-C -Sleep Lab Work Phone: Start: 07-17-2024 End: 07-17-2024 ambulatory Marycarmen Marly Facility:[facility] Start: 07-07-2024 End: 07-07-[address] Marycarmen Rodriguez DO Work Phone: [facility] Work Phone: Start: 07-07-2024 End: 07-07-2024 Patient encounter procedure Marni POOL -Sleep Lab Work Phone: Start: 07-07-2024 End: 07-07-2024 ambulatory [facility] Facility:[facility] Start: 07-03-2024 End: 07-03-2024 Patient encounter procedure Marni POOL -[place] Work Phone: Start: 07-03-2024 End: 07-03-2024 ambulatory [facility] Facility:[facility] Start: 06-30-2024 End: 06-30-[address] Marycarmen Rodriguez DO Work Phone: [facility] Work Phone: Start: 06-30-2024 End: 06-30-2024 Patient encounter procedure Ritesh Laurent JENS Start: 06-30-2024 End: 06-30-2024 ambulatory [facility] Facility:[facility] Start: 04-17-2024 End: 04-17-2024 Patient encounter procedure Gustabo POOL -[facility] Work Phone: Start: 04-17-2024 End: 04-17-2024 ambulatory [facility] Facility:[facility] Start: 04-17-2024 End: 04-17-2024 ambulatory [facility] Facility:[facility] Start: 03-27-2024 End: 03-27-[address] Jose Hay MD -[facility] Work Phone: Start: 03-27-2024 End: 03-27-2024 ambulatory [facility] Facility:[facility] Start: 03-23-2024 End: 03-23-2024 Patient encounter procedure Ritesh Laurent JENS Start: 03-23-2024 End: 03-23-2024 ambulatory [facility] Facility:[facility] Start: 03-20-2024 End: 03-20-[address] Jose Hay MD -[facility] Work Phone: Start: 03-20-2024 End: 03-20-2024 ambulatory Marycarmen Rodriguez Facility:[facility] Start: 05-07-2023 End: 05-07-2023 ambulatory [facility] Work Phone: Start: 05-07-2023 End: 05-07-2023 Patient encounter procedure [facility]-Laboratory, Ritesh Calvillo [facility] Start: 12-29-2022 Non-patient / Non-visit Dr. Danyelle Rodriguez Work Phone: [facility] Work Phone: Start: 12-28-2022 Non-patient / Non-visit Dr. Danyelle Rodriguez Work Phone: [facility] Start: 12-28-2022 End: 12-28-[address] Marycarmen Rodriguez Work Phone: [facility] Work Phone: Start: 12-28-2022 End: 12-28-[address] Marycarmen Rodriguez Work Phone: [facility]-Cardiovascul ar Services Work Phone: Start: 12-21-2022 End: 12-21-2022 Admission to same day surgery center Dr. Marycarmen Rodriguez Work Phone: [facility]-[employer]/Special Procedures Work Phone: Start: 12-21-2022 End: 12-21-[address] Marycarmen Rodriguez Work Phone: [facility] Work Phone: Start: 12-15-2022 End: 12-15-[address] Marycarmen Rodriguez Work Phone: [facility] Work Phone: Start: 12-15-2022 End: 12-15-[address] Marycarmen Rodriguez Work Phone: [facility]-Laboratory Work Phone: Start: 12-15-2022 End: 12-15-[address] Marycarmen Rodriguez Work Phone: [facility] Work Phone: Start: 10-16-2022 End: 10-16-2022 ambulatory Marycarmen ChiuMarly [facility] Work Phone: Start: 10-16-2022 End: 10-16-2022 Patient encounter procedure Marycarmen Rodriguez [facility]-Pulmonary Services/Neurology Start: 10-13-2022 End: 10-13-2022 ambulatory Marycarmen Marly [facility] Work Phone: Start: 10-13-2022 End: 10-13-2022 Patient encounter procedure Marycarmen Rodriguez [facility] Start: 09-21-2022 Non-patient / Non-visit Marycarmen gifford [facility] Start: 09-20-2022 Non-patient / Non-visit Marycarmen gifford [facility] Inpatient Physicians Start: 09-19-2022 Non-patient / Non-visit Marycarmen adrián gifford [facility] Inpatient Physicians Start: 09-18-2022 Non-patient / Non-visit Marycarmen gifford [facility] Start: 09-17-2022 End: 09-17-2022 Non-patient / Non-visit Marycarmen SWAIN [facility] Start: 09-17-2022 End: 09-21-2022 Evaluation and management of inpatient Marycarmen Rodriguez [facility]-Progressive Care Unit Start: 09-09-2022 Non-patient / Non-visit Marycarmen gifford [facility] Start: 09-01-2022 Non-patient / Non-visit Marycarmen adrián gifford [facility] Start: 08-31-2022 End: 08-31-2022 Non-patient / Non-visit Marycarmen SWAIN [facility] Start: 08-31-2022 Non-patient / Non-visit Marycarmen gifford [facility] Start: 08-31-2022 End: 09-01-2022 Evaluation and management of inpatient Marycarmen Rodriguez [facility]-Progressive Care Unit Start: 08-31-2022 End: 09-01-2022 observation encounter Marycarmen [facility] Work Phone: Start: 08-19-2022 End: 08-19-2022 ambulatory Marycarmen Marly [facility] Work Phone: Start: 08-19-2022 End: 08-19-2022 Patient encounter procedure Marycarmen Marly [facility] Start: 08-11-2022 Non-patient / Non-visit Marycarmen Ministeriodanyelle gifford [facility] Start: 06-11-2022 End: 06-11-[address] Marycarmen Rodriguez Work Phone: [facility] Work Phone: Start: 06-11-2022 End: 06-11-[address] [facility]armen Rodriguez [facility] Start: 04-21-2022 Non-patient / Non-visit Dr. Danyelle Rodriguez Work Phone: [facility] Start: 04-21-2022 End: 04-21-[address] Marycarmen Rodriguez Work Phone: [facility] Work Phone: Start: 04-21-2022 End: 04-21-[address] Marycarmen Rodriguez Work Phone: [facility]-Cardiovascul ar Services Start: 04-16-2022 End: 04-16-[address] [facility]carmen Rodriguez [facility] Start: 04-14-2022 End: 04-14-[address] Marycarmen Rodriguez Work Phone: [facility] Work Phone: Start: 04-14-2022 End: 04-14-[address] Marycarmen Rodriguez Work Phone: [facility] Start: 04-14-2022 End: 04-14-[address] Marycarmen Rodriguez Work Phone: [facility] Start: 03-27-2022 End: 03-27-[address] Marycarmen Rodriguez Work Phone: [facility] Start: 01-20-2022 End: 01-20-[address] [facility]armen Rodriguez [facility] Start: 01-07-2022 End: 01-07-[address] Marycarmen Rodriguez [facility] Start: 11-27-2021 Non-patient / Non-visit Dr. Danyelle Rodriguez Work Phone: [facility] Start: 11-26-2021 End: 11-26-[address] Marycarmen Rodriguez Work Phone: [facility]-Pulmonary Services/Neurology Start: 11-21-2021 End: 11-21-[address] Marycarmen Rodriguez Work Phone: [facility] Start: 11-16-2021 End: 11-16-2021 Emergency department patient visit Dr. Marycarmen Rodriguez Work Phone: [facility]-Emergency Department Start: 10-28-2021 End: 10-28-[address] Marycarmen Rodriguez Work Phone: [facility]-Laboratory, [place] Start: 09-16-2021 End: 09-16-[address] Marycarmen Rodriguez Work Phone: [facility]-Radiology, [facility] Start: 09-16-2021 End: 09-16-[address] Marycarmen Rodriguez Work Phone: [facility] Start: 08-15-2021 Non-patient / Non-visit Dr. Danyelle Rodriguez Work Phone: [facility] Start: 08-15-2021 Non-patient / Non-visit Dr. Danyelle Rodriguez Work Phone: [facility] Start: 08-15-2021 End: 08-15-[address] Marycarmen Rodriguez Work Phone: [facility]-Cardiovascul ar Services Start: 08-01-2021 End: 08-01-[address] Marycarmen Rodriguez Work Phone: [facility] Start: 06-10-2021 End: 06-10-2021 Emergency department patient visit Dr. Marycarmen Rodriguez Work Phone: [facility]-Emergency Department Start: 05-19-2021 End: 05-19-2021 Emergency department patient visit Dr. Marycarmen Rodriguez Work Phone: [facility]-Emergency Department Start: 05-16-2021 End: 05-16-[address] Marycarmen Rodriguez [facility] Start: 03-19-2021 ambulatory ELADIO INGRAM [facility] Start: 02-24-2021 End: 02-25-2021 ambulatory MARYCARMEN HARRISON [facility] Start: 02-20-2021 End: 02-24-2021 ambulatory ELADIO INGRAM [facility] Start: 01-10-2021 End: 01-10-2021 Orders Only Luma Foy RN 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, unspecified whether burns pai[place] or transplanted heart (HCC); 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); Mixed hyperlipidemia Start: 12-18-2020 ambulatory [facility] Start: 10-15-2020 End: 10-16-2020 ambulatory MARYCARMEN HARRISON [facility] Start: 10-15-2020 End: 10-15-2020 Subsequent hospital visit by physician Eladio Ingram MD Work Phone: [facility] Comment on above: Arrived Start: 10-10-2020 ambulatory SAGAR ACUÑA [facility] Ambulatory Start: 10-09-2020 End: 10-09-2020 Orders Only Sagar Acuña CNP Work Phone: [employer] Office Comment on above: DEAN (dyspnea on exer tion) (Primary Dx) Start: 10-09-2020 End: 10-09-2020 Office outpatient new 45 minutes Sagar Acuña CNP Work Phone: [employer] Office Comment on above: DEAN (dyspnea on exer tion); Essential hypertension; Type 2 diabetes mellitus without complication, without long-term current use of insulin (HCC); MATTHEW (obstructive sleep apnea); Coronary artery disease involving burns paiute coronary artery of burns pai[place] heart without angina pectoris Start: 10-04-2020 End: 10-04-2020 Orders Only Deisi March RN [facility] Office Comment on above: Shortness of breath (Primary Dx) Start: 12-17-2016 Office/outpatient vi sit, est, level 4 Eladio Ingram Work Phone: [facility] Start: 11-28-2016 End: 11-28-2016 Patient encounter procedure [facility] Procedures Date Procedure Procedure Detail Performing [...] Start: 12-07-2024 D-dimer assay, quantitative Dr. Marycarmen oRdriguez DO Work Phone: Start: 12-07-2024 Estimated creatinine [...] Nucleated red blood cell count procedure Dr. Marycaremn Rodriguez DO Work Phone: Start: 12-04-2024 Platelet [...] knee, four or more views Dr. Marycarmen Rordiguez DO Work Phone: Start: 11-26-2024 Blood count [...] Work Phone: Comment on above: Test Ordered: [id number] Screen, Urine Negative ng/mL UI Reference Range: Habfmj=458Jtozgvhvyfs test includes Amphetamine and Methamphetamine.Barbiturates Negative ng/mL UI Reference Range: Ufeqic=657Xlgflhfrccmwjqr Negative ng/mL UI Reference Range: Yftthc=943Feklouo (Metab.), Urine Negative ng/mL UI Reference Range: Qdouwe=937Sufnieh Note: ng/mL UI See Final Results Reference Range: Slrzvf=711Iqiaow test includes Codeine, Morphine, Hydromorphone, Hydrocodone.Opiates Positive [A ] UI Reference Range: Cnznqg=421Nrshta test includes Codeine, Morphine, Hydromorphone, Hydrocodone.Codeine Negative UI Reference Range: Yrmjbp=797Ozbnkwxa Negative UI Reference Range: Xfufpq=676Vjatwsqmzjlyu Negative UI Reference Range: Zldaku=726Pgvamqbvgpy Positive [A ] UI Reference Range: .Hydrocodone Conf, MS, UR 349 ng/mL UI Reference Range: Cpeqsy=2510-Eirktspjzrzryi, Urine Negative ng/mL UI Reference Range: Cutoff=10Oxycodone/Oxymorphone, Urine Negative ng/mL UI Reference Range: Qaqoiu=165Liua includes Oxycodone and OxymorphonePCP, Urine Negative ng/mL UI Reference Range: Cutoff=25Methadone Screen, Urine Negative ng/mL UI Reference Range: Oxzyuk=834Xthtanekwlfv, Urine Negative ng/mL UI Reference Range: Dzdcra=918Pqplnplj, Urine Negative ng/mL UI Reference Range: Cutoff=2.0Test includes Fentanyl and NorfentanylThis test was developed and its performance characteristicsdetermined by [facility]. It has not been cleared orapproved by the Food and Drug Administration.Tramadol Negative ng/mL UI Reference Range: Hgjoku=988Lhutpsnfyhhao, Urine Negative ng/mL UI Reference Range: Cutoff=10Creatinine, Urine 36.9 mg/dL UI Reference Range: 20.0-300.0pH, Urine 6.1 UI Reference Range: 4.5-8.9Performed at: - [facility] [id number] [facility], [facility], [place] [id number] Director: Erik Wallis PhD, Phone: [phone] at: [facility] Labndrp [id number] [place], [place] [id number] Director: Bharath Hawthorne PhD, Phone: [phone] Start: 10-18-[address] Marycarmen [...] ast 12 lds w/i&r Sagar Silvia Acuña [employer] Work Phone: Start: 08-18-2018 History of percutane ous transluminal coronary angioplasty History of percutaneous transluminal coronary angioplasty Dr. 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 per Dr. Alexandr Mcclain Start: 08-13-2017 History of placement of stent for coronary artery disease History of coronary artery stent placement Dr. 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 Procedure aborted. 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9670AAK-QCEV-Vt and Stent-Mid RCA x 2 Multi Link Mini Vision Rx Stent 4.0 x 28 mm 01/21/[address] JEFFREY SPIVEY MD Prostatectomy planned DR ROCIO SPIVEY MD Tonsillectomy DR JEFFREY SPIVEY MD Tx devices design & construction intermediate DR JEFFREY SPIVEY MD Plan of Treatment Date Care Activity Detail Author Start: 01-01-2025 [facility] Start: 01-01-2025 [facility] Start: 12-26-2024 Patient discharge [facility] Start: 12-25-2024 End: 12-26-2024 [facility] Start: 12-25-2024 Continuous positive airway pressure ventilation treatment [facility] Start: 12-24-2024 End: 12-25-2024 [facility] Start: 12-24-2024 Verification routine [facility] Start: 12-24-2024 Application of intermittent pneumatic compression device [facility] Start: 12-24-2024 Following clinical pathway protocol [facility] Start: 12-24-2024 Assessment of risk of venous thromboembolism [facility] Start: 12-24-2024 Care regimes management [facility] Start: 12-24-2024 Fall prevention [facility] Start: 12-24-2024 Inhalation therapy procedure [facility] Start: 12-24-2024 Insertion of catheter into peripheral vein [facility] Start: 12-24-2024 Introduction of urinary catheter [facility] Start: 12-24-2024 Me[address] intake and output [facility] Start: 12-24-2024 Notification of physician [facility] Start: 12-24-2024 Oxygen therapy [facility] Start: 12-24-2024 Providing care according to standard [facility] Start: 12-24-2024 Provision of activity privileges [facility] Start: 12-24-2024 Referral to gastroenterology service [facility] Start: 12-24-2024 Referral to occupational therapist [facility] Start: 12-24-2024 Referral to service [facility] Start: 12-24-2024 Admission procedure [facility] Start: 12-24-2024 [facility] Start: 12-20-2024 End: 12-20-2024 [facility] Start: 12-20-2024 [facility] Start: 12-17-2024 Patient discharge [facility] Start: 12-16-2024 [facility] Start: 12-15-2024 Dual pressure spontaneous ventilation support [facility] Start: 12-15-2024 Assessment of risk of venous thromboembolism [facility] Start: 12-15-2024 Care regimes management [facility] Start: 12-15-2024 Continuous pulse oximetry [facility] Start: 12-15-2024 Incentive spirometry [facility] Start: 12-15-2024 Insertion of catheter into peripheral vein [facility] Start: 12-15-[address] and output [facility] Start: 12-15-2024 Notification of physician [facility] Start: 12-15-2024 Providing care according to standard [facility] Start: 12-15-2024 Provision of activity privileges [facility] Start: 12-15-2024 Referral to correctional medicine physician [facility] Start: 12-15-2024 Referral to occupational therapist [facility] Start: 12-15-2024 Referral to service [facility] Start: 12-15-2024 Tobacco use cessation education [facility] Start: 12-15-2024 End: 12-15-2024 [facility] Start: 12-15-2024 Following clinical pathway protocol [facility] Start: 12-15-2024 Admission procedure [facility] Start: 12-15-2024 The [facility] Start: 12-15-2024 Patient referral to dietitian [facility] Start: 12-08-2024 Patient discharge [facility] Start: 12-07-2024 Following clinical pathway protocol [facility] Start: 12-07-2024 Assessment of risk of venous thromboembolism [facility] Start: 12-07-2024 Care regimes management [facility] Start: 12-07-2024 Inhalation therapy procedure [facility] Start: 12-07-2024 Insertion of catheter into peripheral vein [facility] Start: 12-07-2024 Measuring intake and output [facility] Start: 12-07-2024 Notification of physician [facility] Start: 12-07-2024 Providing care according to standard [facility] Start: 12-07-2024 Provision of activity privileges [facility] Start: 12-07-2024 Referral to occupational therapist [facility] Start: 12-07-2024 Referral to service [facility] Start: 12-07-2024 End: 12-07-2024 [facility] Start: 12-07-2024 Pulmonary perfusion study [facility] Start: 12-07-2024 Verification routine [facility] Start: 12-07-2024 Admission procedure [facility] Start: 12-07-2024 Hospital admission, emergency, from emergency room, medical nature [facility] Start: 12-07-2024 [facility] Start: 12-07-2024 [facility] Start: 12-07-2024 Dual pressure spontaneous ventilation support [facility] Start: 12-06-2024 Patient discharge [facility] Start: 12-05-2024 Referral to occupational therapist [facility] Start: 12-05-2024 Referral to service [facility] Start: 12-03-2024 Electrocardiographic procedure [facility] Start: 12-03-2024 Referral to correctional medicine physician [facility] Start: 12-03-2024 Verification routine [facility] Start: 12-03-2024 Admission procedure [facility] Start: 12-02-2024 End: 12-02-2024 [facility] Start: 12-02-2024 Following clinical pathway protocol [facility] Start: 12-02-2024 Notification of physician [facility] Start: 12-02-2024 Patient education [facility] Start: 12-02-2024 Provision of activity privileges [facility] Start: 12-02-2024 Pulse taking [facility] Start: 12-02-2024 Taking patient vital signs [facility] Start: 12-02-2024 Wound care [facility] Start: 12-02-2024 Oxygen therapy [facility] Start: 12-02-2024 Dual pressure spontaneous ventilation support [facility] Start: 12-02-2024 End: 12-02-2024 Hospital admission, emergency, from emergency room, medical nature [facility] Start: 12-02-2024 [facility] Start: 12-02-2024 Patient discharge [facility] Start: 12-02-2024 Electrocardiographic procedure [facility] Start: 12-02-2024 Magnetic resonance angiography of head without contrast [facility] Start: 12-02-2024 Magnetic resonance angiography of neck without contrast [facility] Start: 12-02-2024 MRA Head vessels WO contrast [facility] Start: 12-02-2024 MRA Neck vessels WO contrast [facility] Start: 12-01-2024 Vital signs measurements [facility] Start: 12-01-2024 Aspiration precautions [facility] Start: 12-01-2024 Cardiac monitoring [facility] Start: 12-01-2024 Catheterization of vein [facility] Start: 12-01-2024 Consultation [facility] Start: 12-01-2024 Continuous pulse oximetry [facility] Start: 12-01-2024 Elevation of head of bed [facility] Start: 12-01-2024 Exercises [facility] Start: 12-01-2024 Notification of physician [facility] Start: 12-01-2024 Oxygen therapy [facility] Start: 12-01-2024 Patient referral to dietitian [facility] Start: 12-01-2024 Referral to occupational therapist [facility] Start: 12-01-2024 Referral to service [facility] Start: 12-01-2024 Speech therapy assessment [facility] Start: 12-01-2024 Telemedicine consultation with patient [facility] Start: 12-01-2024 Tobacco use cessation education [facility] Start: 12-01-2024 End: 12-01-2024 [facility] Start: 12-01-2024 [facility] Start: 12-01-2024 [facility] Start: 12-01-2024 Electrocardiographic procedure [facility] Start: 12-01-2024 Continuous positive airway pressure ventilation treatment [facility] Start: 12-01-2024 US Heart [facility] Start: 12-01-2024 Complete blood count [facility] Start: 11-30-2024 End: 11-30-2024 [facility] Start: 11-30-2024 Following clinical pathway protocol [facility] Start: 11-30-2024 Ambulation without limitation [facility] Start: 11-30-2024 Assessment of risk of venous thromboembolism [facility] Start: 11-30-2024 Insertion of catheter into peripheral vein [facility] Start: 11-30-[address]24 Me[address]uring intake and output [facility] Start: 11-30-2024 Providing care according to standard [facility] Start: 11-30-2024 Referral to service [facility] Start: 11-30-2024 Care regimes management [facility] Start: 11-30-2024 Complete blood count [facility] Start: 11-30-2024 Elevation of head of bed [facility] Start: 11-30-2024 Admission procedure [facility] Start: 11-30-2024 Cardiac monitoring [facility] Start: 11-30-2024 Cardiac rehabilitation - phase 1 [facility] Start: 11-30-2024 Cardiac rehabilitation - phase 2 [facility] Start: 11-30-2024 Dietary regime [facility] Start: 11-30-2024 Log roll [facility] Start: 11-30-2024 End: 11-30-2024 Notification of physician [facility] Start: 11-30-2024 Oxygen therapy [facility] Start: 11-30-2024 Patient discharge [facility] Start: 11-30-2024 Provision of activity privileges [facility] Start: 11-30-2024 Pulse taking [facility] Start: 11-30-2024 Hospital admission, emergency, from emergency room, medical nature [facility] Start: 11-30-2024 Electrocardiographic procedure [facility] Start: 11-30-2024 End: 11-30-2024 [facility] Start: 11-30-2024 Partial thromboplastin time, activated [facility] Start: 11-30-2024 Prothrombin time [facility] Start: 11-28-2024 [facility] Start: 11-28-2024 Patient discharge [facility] Start: 11-28-2024 Complete blood count [facility] Start: 11-27-2024 Following clinical pathway protocol [facility] Start: 11-27-2024 Elevation of head of bed [facility] Start: 11-27-2024 Dietary regime [facility] Start: 11-27-2024 Log roll [facility] Start: 11-27-2024 Provision of activity privileges [facility] Start: 11-27-2024 End: 11-27-2024 [facility] Start: 11-27-2024 Admission procedure [facility] Start: 11-27-2024 Cardiac monitoring [facility] Start: 11-27-2024 Cardiac rehabilitation - phase 1 [facility] Start: 11-27-2024 Cardiac rehabilitation - phase 2 [facility] Start: 11-27-2024 Notification of physician [facility] Start: 11-27-2024 Oxygen therapy [facility] Start: 11-27-2024 Pulse taking [facility] Start: 11-27-2024 Continuous positive airway pressure ventilation treatment [facility] Start: 11-27-2024 Inhalation therapy procedure [facility] Start: 11-26-2024 [facility] Start: 11-26-2024 [facility] Start: 11-22-2024 Evaluation of diagnostic study results [facility] Start: 10-25-2024 Evaluation of diagnostic study results [facility] Start: 07-25-2024 Walking distance 6 minutes [facility] Start: 07-17-2024 Measurement of respiratory function [facility] Start: 12-21-2022 Patient discharge [facility] Start: 10-05-2022 Measurement of respiratory function [facility] Start: 09-21-2022 Patient discharge [facility] Start: 09-20-2022 Telepractice consultation [facility] Start: 09-18-2022 Following clinical pathway protocol [facility] Start: 09-17-2022 Aspiration precautions [facility] Start: 09-17-2022 Assessment of risk of venous thromboembolism [facility] Start: 09-17-2022 Cardiac monitoring [facility] Start: 09-17-2022 Care regimes management [facility] Start: 09-17-2022 Catheterization of vein [facility] Start: 09-17-2022 Continuous positive airway pressure ventilation treatment [facility] Start: 09-17-2022 Continuous pulse oximetry [facility] Start: 09-17-2022 Elevation of head of bed [facility] Start: 09-17-2022 Exercises [facility] Start: 09-17-2022 Fall prevention [facility] Start: 09-17-2022 Implementation of planned interventions [facility] Start: 09-17-2022 Inhalation therapy procedure [facility] Start: 09-17-2022 Insertion of catheter into peripheral vein [facility] Start: 09-17-2022 Introduction of urinary catheter [facility] Start: 09-17-[address] output [facility] Start: 09-17-2022 Notification of physician [facility] Start: 09-17-2022 Oxygen therapy [facility] Start: 09-17-2022 End: 09-18-2022 Patient referral to dietitian [facility] Start: 09-17-2022 Providing care according to standard [facility] Start: 09-17-2022 Provision of activity privileges [facility] Start: 09-17-2022 Referral to occupational therapist [facility] Start: 09-17-2022 Referral to service [facility] Start: 09-17-2022 Speech therapy assessment [facility] Start: 09-17-2022 Tobacco use cessation education [facility] Start: 09-17-2022 [facility] Start: 09-17-2022 Admission procedure [facility] Start: 09-01-2022 Patient discharge [facility] Start: 08-31-2022 Patient referral [facility] Work Phone: Start: 08-31-2022 Following clinical pathway protocol [facility] Start: 08-31-2022 Pulse taking [facility] Start: 08-31-2022 Cardiac monitoring [facility] Start: 08-31-2022 Cardiac rehabilitation - phase 1 [facility] Start: 08-31-2022 Cardiac rehabilitation - phase 2 [facility] Start: 08-31-2022 Notification of physician [facility] Start: 08-31-2022 Oxygen therapy [facility] Start: 08-31-2022 Patient discharge [facility] Start: 08-31-2022 Taking patient vital signs [facility] Start: 08-31-2022 Vascular disease risk assessment [facility] Start: 08-31-2022 Vital signs measurements [facility] Start: 08-31-2022 End: 08-31-2022 [facility] Start: 08-31-2022 Admission procedure [facility] Start: 11-16-2021 [facility] Work Phone: Start: 01-10-2021 End: 01-10-2021 Admission to same day surgery center 01/10/2021 Surgery Cardiology Eladio Ingram MD [address] [facility] [address] [place] [address] Left Heart Cath Possible PTCA/Stent [facility] [employer] Comment on above: Left Heart Cath Possible PTCA/Stent Start: 01-10-2021 Subsequent hospital visit by physician 01/10/2021 Hospital Encounter Eladio Ingram MD [address] [facility] [address] [place] [address] [facility] Procedural Care Unit Start: 01-01-2021 Influenza vaccination [facility] Start: 12-26-2020 End: 12-26-2020 Patient encounter procedure 12/26/2020 Office Visit Cardiology Marycarmen Rodriguez, DO [address] [place], [place] [id number] Eladio Ingram MD [address] [facility] [address] [place] [address] [phone] [facility] Office Start: 10-15-2020 End: 10-15-2020 Patient encounter procedure 10/15/2020 Appointment Cardiology Eladio Ingram MD [address] [facility] [address] [place] [address] [phone] [facility] Start: 10-09-2020 End: 10-09-2020 Patient encounter procedure 10/09/2020 Office Visit Cardiology Sagar Acuña, [employer] [address] [place] [address] [phone] [facility] Office Start: 11-05-2017 Prostate specific antigen measurement PSA Level [facility] Start: 06-01-2017 HEMOGLOBIN A1C HEMOGLOBIN A1C [facility] Work Phone: Start: 06-01-2017 Hemoglobin A1c measurement A1C [facility] Start: 06-01-2017 Hemoglobin A1c/Hemoglobin.total mass fraction (Bld) HEMOGLOBIN A1C [facility] Work Phone: Start: 01-01-2017 SEQUENTIAL INFLUENZA VACCINE (#1) SEQUENTIAL INFLUENZA VACCINE (#1) [facility] Work Phone: Start: 12-17-2016 Ambulatory 12/17/2016 Office Visit Cardiology Eladio Ingram MD [address] [facility] [address] [place] [address] [phone] [facility] Start: 2010 ABDOMINAL AORTIC ULTRASOUND ABDOMINAL AORTIC ULTRASOUND [facility] Work Phone: Start: 2010 Fall risk assessment Falls Risk Assessment [facility] Start: 2010 PNEUMOCOCCAL VACCINE AGE 65+ (1 of 2 - PCV13) PNEUMOCOCCAL VACCINE AGE 65+ (1 of 2 - PCV13) [facility] Work Phone: Start: 2005 Zoster vacc, sc ZOSTER VACCINE [facility] Work Phone: Start: 08-01-1995 Administration of herpes zoster vaccine Zoster Vaccines (1 of 2) [facility] Start: 08-01-1995 Screening for malignant neoplasm of colon [facility] Start: 08-01-1963 Hepatitis C screening Hepatitis C Screening [facility] Start: 1957 COVID-19 Vaccine (1) COVID-19 Vaccine (1) [facility] Start: 08-01-1955 3 comp foot exam completed FOOT EXAM [facility] Work Phone: Start: 08-01-1955 Albumin Test strip detection limit <= 20 mg/L mass conc (U) URINE MICROALBUMIN [facility] Work Phone: Start: 08-01-1955 Diabetic foot examination Foot Exam [facility] Start: 08-01-1955 Microalbumin measurement, urine, quantitative Urine Microalbumin [facility] Start: 08-01-1955 Ophthalmic examination and evaluation OPHTHALMOLOGY EXAM [facility] Start: 08-01-1955 FOOT EXAM FOOT EXAM [facility] Work Phone: Start: 08-01-1955 OPHTHALMOLOGY EXAM OPHTHALMOLOGY EXAM [facility] Work Phone: Start: 08-01-1955 URINE MICROALBUMIN URINE MICROALBUMIN [facility] Work Phone: Start: 08-01-1951 Pneumococcal Vaccine: Age 65+ (1 of 2 - PPSV23) Pneumococcal Vaccine: Age 65+ (1 of 2 - PPSV23) [facility] Start: 1948 History and physical examination, annual for health maintenance Wellness Visit [facility] Start: 1945 Colonoscopy COLONOSCOPY [facility] Work Phone: Start: 1945 Tetanus vaccination Tetanus: Every 10yrs [facility] Start: 1945 Colonoscopy COLONOSCOPY [facility] Work Phone: Start: 1945 End: 1945 HEPATITIS C SCREENING HEPATITIS C SCREENING [facility] Work Phone: Start: 1945 End: 1945 TETANUS EVERY 10 YR TETANUS EVERY 10 YR [facility] Work Phone: Alanine aminotransfe rase [Enzymatic activity/volume] in Serum or Plasma [facility] Alanine aminotransfe rase [Enzymatic activity/volume] in Serum or Plasma [facility] Albumin [Mass/volume ] in Serum or Plasma [facility] Albumin [Mass/volume ] in Serum or Plasma [facility] Alkaline phosphatase [Enzymatic activity/volume] in Serum or Plasma [facility] Alkaline phosphatase [Enzymatic activity/volume] in Serum or Plasma [facility] Anion gap in Serum or Plasma [facility] Anion gap in Serum or Plasma [facility] End: 12-26-2021 Basic metabolic 2000 panel - Serum or Plasma Basic metabolic panel Lab Routine 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, unspecified whether burns [place] or transplanted heart (HCC) Essential hypertension 1 Occurrences starting 12/26/2020 until 12/26/2021 [facility] Comment on above: 1 Occurrences starting 12/26/2020 until 12/26/2021 Basic metabolic 2000 panel - Serum or Plasma Basic metabolic panel Lab Routine 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, unspecified whether burns [place] or transplanted heart (HCC) Essential hypertension 12/26/2020 11:28 AM EDT [facility] Basic metabolic 2007 panel with ionized calcium - Serum or Plasma [facility] Basic metabolic 2007 panel with ionized calcium - Serum or Plasma [facility] Basic metabolic 2007 panel with ionized calcium - Serum or Plasma [facility] End: 12-17-2017 Basic metabolic panel [AGGREGATE] Basic metabolic panel Routine MATTHEW (obstructive sleep apnea) 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 BUN/Creatinine ratio [facility] BUN/Creatinine ratio [facility] Calcium [Mass/volume ] in Serum or Plasma [facility] Calcium [Mass/volume ] in Serum or Plasma [facility] Carbon dioxide, tota l [Moles/volume] in Central venous blood [facility] Carbon dioxide, tota l [Moles/volume] in Central venous blood [facility] Catheterization of [facility] Catheterization of [facility] Catheterization of l [facility] CBC W Auto Different ial panel - Blood [facility] CBC W Auto Different ial panel - Blood [facility] End: 12-26-2021 Complete blood count with white cell differential, manual CBC and differential Lab Routine 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, unspecified whether burns [place] or transplanted heart (HCC) Essential hypertension 1 Occurrences starting 12/26/2020 until 12/26/2021 [facility] Work Phone: Comment on above: 1 Occurrences starting 12/26/2020 until 12/26/2021 Complete blood count with white cell differential, manual CBC and differential Lab Routine 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, unspecified whether burns [place] or transplanted heart (HCC) Essential hypertension 12/26/2020 11:28 AM EDT [facility] Creatinine [Mass/vol ume] in Serum or Plasma [facility] Creatinine [Mass/vol ume] in Serum or Plasma [facility] End: 01-10-2022 CT Angiogram Aorta Chest Abdomen Pelvis CT Angiogram Aorta Chest Abdomen Pelvis Imaging Routine 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) 1 Occurrences starting 01/10/2021 until 01/10/2022 [facility] Work Phone: Comment on above: 1 Occurrences starting 01/10/2021 until 01/10/2022 End: 12-04-2021 Echocardiography Echocardiogram complete Echocardiography Routine Shortness of breath 1 Occurrences starting 10/04/2020 until 12/04/2021 [facility] Comment on above: 1 Occurrences starting 10/04/2020 until 12/04/2021 Erythrocyte mean cor puscular volume determination [facility] Erythrocyte mean cor puscular volume determination [facility] Erythrocyte mean cor puscular volume determination [facility] Glucose [Mass/volume ] in Serum or Plasma [facility] Glucose [Mass/volume ] in Serum or Plasma [facility] Hematocrit [Volume F raction] of Blood [facility] Hematocrit [Volume F raction] of Blood [facility] Hematocrit [Volume F raction] of Blood [facility] Hemoglobin [Mass/vol ume] in Blood [facility] Hemoglobin [Mass/vol ume] in Blood [facility] Hemoglobin [Mass/vol ume] in Blood [facility] INR in Blood by Coag ulation assay [facility] LEFT HEART CATH POSS IBLE PTCA/STENT LEFT HEART CATH POSSIBLE PTCA/STENT 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 1 Occurrences starting 12/17/2016 until 12/17/2017 [facility] Work Phone: Mean corpuscular hem oglobin concentration determination [facility] Mean corpuscular hem oglobin concentration determination [facility] Mean corpuscular hem oglobin concentration determination [facility] Mean corpuscular hem oglobin determination [facility] Mean corpuscular hem oglobin determination [facility] Mean corpuscular hem oglobin determination [facility] Measurement of renal function [facility] Measurement of renal function [facility] Measurement of respi ratory function [facility] Work Phone: Natriuretic peptide. B prohormone N-Terminal [Mass/volume] in Serum or Plasma [facility] Natriuretic peptide. B prohormone N-Terminal [Mass/volume] in Serum or Plasma [facility] NM Heart Views W str ess and W radionuclide IV [facility] Patient Education [facility] Work Phone: Patient referral [facility] Work Phone: Platelets [#/volume] in Blood [facility] Platelets [#/volume] in Blood [facility] Platelets [#/volume] in Blood [facility] Potassium measurement [facility] Potassium measurement [facility] Red blood cell count [facility] Red blood cell count [facility] Red blood cell count [facility] Red cell distributio n width determination [facility] Red cell distributio n width determination [facility] Red cell distributio n width determination [facility] Serum chloride measurement [facility] Serum chloride measurement [facility] Sodium measurement [facility] Sodium measurement [facility] Total protein measurement [facility] Total protein measurement [facility] Troponin T.cardiac [Mass/volume] in Serum or Plasma by High sensitivity method [facility] Troponin T.cardiac [Mass/volume] in Serum or Plasma by High sensitivity method [facility] Troponin T.cardiac [Mass/volume] in Serum or Plasma by High sensitivity method [facility] Troponin T.cardiac [Mass/volume] in Serum or Plasma by High sensitivity method [facility] Troponin T.cardiac [Mass/volume] in Serum or Plasma by High sensitivity method [facility] Troponin T.cardiac [Mass/volume] in Serum or Plasma by High sensitivity method [facility] Urea nitrogen [Mass/ volume] in Serum or Plasma [facility] Urea nitrogen [Mass/ volume] in Serum or Plasma [facility] XR Chest PA and Lateral [facility] Immunizations Immunization Date Immunization Notes Care Provider Fa doyle 11-26-2024 tetanus toxoid, redu terry diphtheria toxoid, and acellular pertussis vaccine, adsorbed Dr. Marycarmen Rodriguez DO Work Phone: [facility] 02-19-2023 influenza, injectabl e, quadrivalent, preservative free Dr. Marycarmen Rodriguez DO Work Phone: [facility] 01-27-2022 influenza, injectabl e, quadrivalent, preservative free Dr. Marycarmen Rodriguez DO Work Phone: [facility] 09-04-2021 Covid (Pfizer) Dr. Marycarmen hough DO Work Phone: [facility] 02-24-2021 Covid (Pfizer) Dr. Marycarmen hough DO Work Phone: [facility] 06-27-2020 Covid (Pfizer) Dr. Marycarmen hough DO Work Phone: [facility] 05-31-2020 Covid (Pfizer) Dr. Marycarmen hough DO Work Phone: [facility] 02-20-[address] Marycarmen Rodriguez Work Phone: [facility] 02-14-[address] Marycarmen Rodriguez Work Phone: [facility] 01-31-[address] Marycarmen Rodriguez Work Phone: [facility] 04-12-2017 influenza, high dose seasonal, preservative-free Dr. Marycarmen Rodriguez DO Work Phone: [facility] 11-29-2016 HEMOGLOBIN A1C [facility] Work Phone: 08-16-2014 pneumococcal polysaccharide vaccine, [address] Maryacrmen Rodriguez DO Work Phone: [facility] 08-05-2005 hepatitis A vaccine, pediatric/adolescent dosage, [address] Marycarmen Rodriguez DO Work Phone: [facility] 01-14-2005 hepatitis A vaccine, pediatric/adolescent dosage, [address] Marycarmen Rodriguez DO Work Phone: [facility] 01-14-2005 TD(adult) unspecifie d formulation Dr. Marycarmen Rodriguez DO Work Phone: [facility] Payers Date Payer Category Payer Medicare [id number] 2025 Private Health Insurance [id number] 2024 Self-pay [id number] 2019 Unknown [id number] 1.2.840.295572.1.13.385.2.7.3.768850.315 2019 Unknown [id number] 2012 Unknown [id number] 2.1 6.840.1.555193.3.249.13 2010 Medicare [id number] 2.16 .840.1.633582.3.249.13 2010 Medicare [id number] 1.2.840.820627.1.13.385.2.7.3.299681.315 2010 Medicare [id number] 2010 Medicare [id number] 1945 Unknown [id number] 2.16. 840.1.511979.3.579.2.594 1945 Unknown [id number] 2.16. 840.1.456185.3.579.2.902 1945 Unknown [id number] 2.16. 840.1.146725.3.579.2.903 1945 Unknown [id number] 2.16. 840.1.457791.3.579.2.903 1945 Unknown [id number] 2.16. 840.1.562158.3.579.2.90 1945 Unknown [id number] 2.16. 840.1.342510.3.579.2.903 1945 Unknown [id number] 2.16. 840.1.231154.3.579.2. 1945 Unknown [id number] 2.16. 840.1.837375.3.579.2.903 1945 Unknown [id number] 2.. 840.1.144128.3.579.2. 1945 Unknown [id number] 2.16. 840.1.301767.3.579.2.903 1945 Unknown [id number] 2.16. 840.1.946004.3.579.2.627 Unknown [id number] 2.16.8 40.1.560309.3.579.2.462 Unknown [id number] 2.16.8 40.1.284455.3.579.2.462 Unknown [id number] 2.16.8 40.1.755527.3.579.2.462 Unknown [id number] 2.16.8 40.1.333724.3.579.2.462 Unknown [id number] 2.16.8 40.1.381520.3.579.2.462 Unknown [id number] 2.16.8 40.1.865029.3.579.2.462 Unknown [id number] 2.16.8 40.1.739064.3.579.2.462 Unknown [id number] 2.16.8 40.1.627873.3.579.2.462 Unknown [id number] 2.16.8 40.1.945811.3.579.2.462 Unknown [id number] 2.16.8 40.1.399344.3.579.2.462 Unknown [id number] 2.16.8 40.1.118347.3.579.2.462 Unknown [id number] 2.16.8 40.1.044302.3.579.2.462 Unknown [id number] 2.16.8 40.1.612973.3.579.2.462 Unknown [id number] 2.16.8 40.1.054859.3.579.2.462 Unknown [id number] 2.16.8 40.1.411997.3.579.2.462 Unknown [id number] 2.16.8 40.1.181144.3.579.2.462 Unknown [id number] 2.16.8 40.1.662409.3.579.2.462 Unknown [id number] 2.16.8 40.1.479045.3.579.2.462 Unknown [id number] 2.16.8 40.1.829760.3.579.2.462 Unknown [id number] 2.16.8 40.1.380269.3.579.2.462 Unknown [id number] 2.16.8 40.1.757095.3.579.2.462 Unknown [id number] 2.16.8 40.1.282353.3.579.2.462 Unknown [id number] 2.16.8 40.1.917441.3.579.2.462 Unknown [id number] 2.16.8 40.1.847548.3.579.2.462 Unknown [id number] 2.16.8 40.1.460553.3.579.2.462 Unknown [id number] 2.16.8 40.1.388424.3.579.2.462 Unknown [id number] 2.16.8 40.1.182171.3.579.2.462 Unknown [id number] 2.16.8 40.1.436891.3.579.2.462 Unknown [id number] 2.16.8 40.1.991951.3.579.2.462 Unknown [id number] 2.16.8 40.1.919421.3.579.2.462 Unknown [id number] 2.16.8 40.1.071939.3.579.2.462 Unknown [id number] 2.16.8 40.1.964351.3.579.2.462 Unknown [id number] 2.16.8 40.1.321807.3.579.2.462 Unknown [id number] 2.16.8 40.1.459938.3.579.2.462 Unknown [id number] 2.16.8 40.1.156798.3.579.2.462 Unknown [id number] 2.16.8 40.1.906373.3.579.2.462 Unknown [id number] 2.16.8 40.1.071863.3.579.2.462 Unknown [id number] 2.16.8 40.1.309642.3.579.2.462 Unknown [id number] 2.16.8 40.1.713442.3.579.2.462 Unknown [id number] 2.16.8 40.1.608486.3.579.2.462 Unknown [id number] 2.16.8 40.1.334424.3.579.2.462 Unknown [id number] 2.16.8 40.1.771047.3.579.2.462 Unknown [id number] 2.16.8 40.1.124093.3.579.2.462 Unknown [id number] 2.16.8 40.1.789055.3.579.2.462 Unknown [id number] 2.16.8 40.1.558562.3.579.2.462 Unknown [id number] 2.16.8 40.1.042772.3.579.2.462 Unknown [id number] 2.16.8 40.1.232423.3.579.2.462 Unknown [id number] 2.16.8 40.1.838307.3.579.2.462 Unknown 43413553 2.16.8 40.1.375228.3.579.2.462 Unknown [id number] 2.16.8 40.1.813076.3.579.2.462 Unknown [id number] 2.16.8 40.1.461806.3.579.2.462 Unknown [id number] 2.16.8 40.1.418234.3.579.2.462 Unknown [id number] 2.16.8 40.1.167680.3.579.2.462 Unknown [id number] 2.16.8 40.1.475805.3.579.2.462 Unknown [id number] 2.16.8 40.1.037998.3.579.2.462 Unknown [id number] 2.16.8 40.1.701640.3.579.2.462 Unknown [id number] 2.16.8 40.1.267947.3.579.2.462 Unknown [id number] 2.16.8 40.1.634558.3.579.2.462 Unknown [id number] 2.16.8 40.1.932268.3.579.2.462 Unknown [id number] 2.16.8 40.1.163539.3.579.2.462 Unknown [id number] 2.16.8 40.1.035419.3.579.2.462 Unknown [id number] 2.16.8 40.1.703627.3.579.2.462 Unknown [id number] 2.16.8 40.1.446239.3.579.2.462 Unknown [id number] 2.16.8 40.1.770867.3.579.2.462 Unknown [id number] 2.16.8 40.1.196081.3.579.2.462 Unknown [id number] 2.16.8 40.1.868748.3.579.2.462 Unknown [id number] 2.16.8 40.1.164953.3.579.2.462 Unknown [id number] 2.16.8 40.1.496043.3.579.2.462 Unknown [id number] 2.16.8 40.1.530132.3.579.2.462 Unknown [id number] 2.16.8 40.1.830555.3.579.2.462 Unknown [id number] 2.16.8 40.1.532135.3.579.2.462 Unknown [id number] 2.16.8 40.1.249767.3.579.2.462 Unknown [id number] 2.16.8 40.1.673670.3.579.2.462 Unknown [id number] 2.16.8 40.1.872547.3.579.2.462 Unknown [id number] 2.16.8 40.1.420821.3.579.2.462 Unknown [id number] 2.16.8 40.1.169740.3.579.2.462 Unknown [id number] 2.16.8 40.1.923174.3.579.2.462 Unknown [id number] 2.16.8 40.1.292980.3.579.2.462 Unknown [id number] 2.16.8 40.1.487468.3.579.2.462 Unknown [id number] 2.16.8 40.1.425449.3.579.2.462 Unknown [id number] 2.16.8 40.1.326520.3.579.2.462 Unknown [id number] 2.16.8 40.1.300510.3.579.2.462 Unknown [id number] 2.16.8 40.1.825145.3.579.2.462 Unknown [id number] 2.16.8 40.1.122514.3.579.2.462 Unknown [id number] 2.16.8 40.1.132327.3.579.2.462 Unknown [id number] 2.16.8 40.1.667933.3.579.2.462 Unknown [id number] 2.16.8 40.1.603097.3.579.2.462 Unknown [id number] 2.16.8 40.1.950349.3.579.2.462 Unknown [id number] 2.16.8 40.1.551006.3.579.2.462 Unknown [id number] 2.16.8 40.1.701954.3.579.2.462 Unknown [id number] 2.16.8 40.1.824531.3.579.2.462 Unknown [id number] 2.16.8 40.1.328527.3.579.2.462 Unknown [id number] 2.16.8 40.1.231431.3.579.2.462 Unknown [id number] 2.16.8 40.1.204894.3.579.2.462 Unknown [id number] 2.16.8 40.1.247957.3.579.2.462 Unknown [id number] 2.16.8 40.1.209307.3.579.2.462 Unknown [id number] 2.16.8 40.1.659542.3.579.2.462 Unknown [id number] 2.16.8 40.1.752744.3.579.2.462 Unknown [id number] 2.16.8 40.1.825709.3.579.2.462 Unknown [id number] 2.16.8 40.1.275686.3.579.2.462 Social History Date Type Detail Facility Start: 12-17-2016 End: 01-03-2025 Tobacco smoking status NHIS Former smoker [facility] Start: 12-17-2016 End: 10-09-2020 Cigarettes smoked current (pack per day) - Reported [facility] Work Phone: Start: 1945 [facility] Start: 12-17-2016 End: 10-09-2020 Tobacco use and exposure Never used [facility] Start: 12-17-2016 End: 01-10-2021 Alcohol intake Current non-drinker of alcohol (finding) [facility] Start: 03-10-2016 Tobacco Comment quit 25+ yrs ago [facility] Exposure to SARS-CoV -2 (event) Not sure [facility] Start: 08-01-2021 End: 12-21-2022 Tobacco smoking status NHIS Unknown if ever smoked [facility] Start: 01-12-2020 None [facility] Start: 01-12-2020 Spouse/ Signif icant Other [facility] Start: 11-18-2020 Non-smoker [facility] Start: 1945 Sex Assigned At Male [facility] Start: 07-13-2024 End: 01-03-2025 Sex Male (finding) [facility] Sexual Orientation Maryann G[email or web address] Medical Equipment Procedure Code Equipment Code Equipment Origin al Text Equipment Identifier Dates Colonoscopy FDA Start: 12-25-2024 Colonoscopy FDA Start: 12-25-2024 Stent 3.[facility] X [facility] [id number] FDA Start: 01-04-2015 ()[id number] [id number] FDA Start: 08-31-2022 ()[id number] [id number] FDA Start: 08-31-2022 ([id number] [id number] FDA Start: 11-27-2024 (01)[id number] [id number] FDA Start: 11-30-2024 ([id number] [id number] FDA Start: 11-30-2024 Goals Date Patient Goal Desired Activity /State Functional Status Date Assessment Result Facility 12-26-[address] [facility] Work Phone: 12-17-2024 Functional status Ambulates [facility] Work Phone: 12-08-2024 Functional status Bedrest [facility] Work Phone: 12-06-2024 Functional status Ambulates [facility] Work Phone: 12-05-[address] [facility] Work Phone: 12-04-[address] [facility] Work Phone: 12-02-2024 Functional status Bedrest [facility] Work Phone: 11-28-2024 Functional status Ambulates [facility] Work Phone: 11-27-[address] Fe[address] [facility] Work Phone: 09-21-2022 Functional status Chair [facility] Work Phone: 09-20-2022 Functional status Assistive Ning lauro Rolling Walker [facility] Work Phone: 09-01-2022 Functional status Activity Ability Indepe ndent [facility] Work Phone: 08-31-2022 Functional status Ambulates [facility] Work Phone: Mental Status Date Assessment Result Facility 01-01-2025 Cognitive function Voice/Name [facility] Work Phone: 12-26-2024 Cognitive function Voice/Name [facility] Work Phone: 12-17-2024 Cognitive function Voice/Name [facility] Work Phone: 12-08-2024 Cognitive function Voice/Name [facility] Work Phone: 12-07-2024 Cognitive function Voice/Name [facility] Work Phone: 12-06-2024 Cognitive function Voice/Name [facility] Work Phone: 12-05-2024 Cognitive function Voice/Name [facility] Work Phone: 12-02-2024 Cognitive function Voice/Name [facility] Work Phone: 12-02-2024 Cognitive function Voice/Name [facility] Work Phone: 11-28-2024 Cognitive function Voice/Name [facility] Work Phone: 11-27-2024 Cognitive function [facility] Work Phone: 09-21-2022 Cognitive function Voice/Name [facility] Work Phone: 09-01-2022 Cognitive function Appropriate;Cooperativ e [facility] Work Phone: 11-16-2021 Cognitive function Voice/Name [facility] Work Phone: 06-10-2021 Cognitive function Level Of Cons ciousness Awake;Alert;Appropriate [facility] Work Phone: Clinical Notes 06-25-2020 [...] Document Reviewed: 04/20/2014 ExitCare Patient Information 2015 [place]. This information is not intended to replace advice given to you by your health care provider. Make sure you discuss any questions you have with your health care provider. Follow Up Care 01/03/2025 12:50:19 With:JEFFREY SPIVEY MD Address: [address] [facility] [place] [phone] When:Within 2 Week(s) With:Cardiac Rehab- [facility] Address: [address] [place] [address]- When: Unknown Comments:Cardiac rehabilitation is a vital part of your recovery and long-term heart health following your hospital stay. It is a medically supervised exercise and education program designed to improve your physical fitness, manage heart-related risk factors, and support emotional well-being. A cardiac rehab steaming machine operator will contact you soon to schedule your follow-up appointment. If you have any questions please call [phone]. [facility] 01-10-2025 Note Discharge Instructions Thank you for allowing [facility] to assist you with your healthcare needs. The following is important discharge information regarding your hospital visit. What to do next Follow Up Appointments Follow Up with JEFFREY SPIVEY MD When:In 2 weeks Where:[address] [facility] [place] [phone] Follow Up with Cardiac Rehab- [facility] Where:[address] [place] [address]- Additional Information: Cardiac rehabilitation is a vital part of your recovery and long-term heart health following your hospital stay. It is a medically supervised exercise and education program designed to improve your physical fitness, manage heart-related risk factors, and support emotional well-being. A cardiac rehab steaming machine operator will contact you soon to schedule your follow-up appointment. If you have any questions please call [phone]. The Following Activity and Diet Have Been [...] may report side effects to FDA at 4-620-VAM-3009. What other drugs will affect clopidogrel? Sometimes it is not safe to use certain medications at the same time. Some drugs can affect your blood levels of other drugs you take, which may increase side effects or make the medications less effective. Tell your doctor about all your other medicines, especially: a stomach acid elementary art teacher such as omeprazole, Nexium, or Prilosec; an antidepressant such as citalopram, fluoxetine, sertraline, Cymbalta, Effexor, Lexapro, Pristiq, or Prozac; rifampin; a blood thinner--warfarin, Coumadin, Jantoven; or NSAIDs (nonsteroidal anti-inflammatory drugs)--aspirin, ibuprofen (Advil, Motrin), naproxen (Aleve), celecoxib, diclofenac, indomethacin, meloxicam, and others. This list is not complete. Other drugs may affect clopidogrel, including prescription and ckwk-qsb-omewarm medicines, vitamins, and herbal products. Not all [...] to ensure that the information provided by [employer]. ('[employer]') is accurate, up-to-date, and complete, but no guarantee is made to that effect. Drug information contained herein may be time sensitive. [employer] information has been compiled for use by healthcare practitioners and consumers in the [place] and therefore [employer] does not warrant that uses outside of the [place] are appropriate, unless specifically indicated otherwise. [employer] drug information does not endorse drugs, diagnose patients or recommend therapy. [employer] drug information is an informational resource designed [...] effective or appropriate for any given patient. [employer] does not assume any responsibility for any aspect of healthcare administered with the aid of information [employer] provides. The information contained herein is not intended to cover all possible uses, directions, precautions, warnings, drug interactions, allergic reactions, or adverse effects. If you have questions about the drugs you are taking, check with your doctor, nurse or pharmacist. Copyright 5235-8958 [employer]. Version: 18.. Revision Date: 2020. aspirin (oral) ( pir in) Aspi-Cor, Rebeca Plus, Ecotrin, Miniprin, [place] What is the most important information I should know about aspirin? Aspirin can cause Liane's syndrome, a serious and sometimes fatal condition in children. What is aspirin? Aspirin is a salicylate (me-YGH-in-ate) that is used to treat pain, and [...] may report side effects to FDA at 2-646-TAX-6929. What other drugs will affect aspirin? Ask [...] drugs may affect aspirin, including prescription and dnbs-kbn-peblsjo medicines, vitamins, and herbal products. Not all [...] to ensure that the information provided by [employer]') is accurate, up-to-date, and complete, but no guarantee is made to that effect. Drug information contained herein may be time sensitive. [employer] information has been compiled for use by healthcare practitioners and consumers in the [place] and therefore [employer] does not warrant that uses outside of the [place] are appropriate, unless specifically indicated otherwise. [employer] drug information does not endorse drugs, diagnose patients or recommend therapy. [employer] drug information is an informational resource designed [...] effective or appropriate for any given patient. [employer] does not assume any responsibility for any aspect of healthcare administered with the aid of information [employer] provides. The information contained herein is not intended to cover all possible uses, directions, precautions, warnings, drug interactions, allergic reactions, or adverse effects. If you have questions about the drugs you are taking, check with your doctor, nurse or pharmacist. Copyright 9507-1259 [employer] [employer]. Version: 18.02. Revision Date: 04/19/2024. Education Materials [...] Document Reviewed: 04/20/2014 ExitCare Patient Information 2015 [place]. This information is not intended to replace advice given to you by your health care provider. Make sure you discuss any questions you have with your health care provider. Additional Information VACCINATE! IT SAVES LIVES! Members of the community who have not yet received the COVID-19 vaccine and would like to receive it can visit one of [facility] vaccine clinics. There are many vaccine clinic locations within the [facility]. For locations and available times, please visit [email or web address] [place].gov/. It is important to note that some COVID mobile vaccine clinics are held outdoors and may be canceled in rainy or stormy conditions. To learn more about pediatric vaccinations (ages 5-11), we invite you to visit the [facility] webpage. [email or web address].org/ [email or web address] [email or web address].html To learn more about the COVID-19 vaccine, we invite you to visit the CDC website for a list of frequently asked questions.https://www.cdc.gov/c oronavirus/2019-ncov/vaccines/f aq.html [facility] Patient Portal Access Instructions: Stay connected with your healthcare team and access your personal medical information anytime with the [facility] Patient Portal. Please follow the directions below to create your [facility] account: 1.Access the email account you provided upon registration to the hospital/physician office.2.Look for an invitation email from [facility].3.Open the email and access the invitation link: Accept Invitation to [facility].4.Fill in the required kim to create your account. To access your account, visit [email or web address]. Click the blue button labeled "Access Patient [...] you will allow to [facility] on [facility] access to your information. You can also access the [facility] Patient Portal on the [facility]where tuan. Simply click on "Patient Portal" and then log into your account. If you would like to receive a full copy of your medical records, please contact the [facility] [facility] Medical Records Department by calling [phone], Wednesday through Wednesday between 8 a.m. and [...] Call your local pharmacy or go to [email or web address] to find one close to you.3.Make use of household items: Use cat litter or old coffee grounds to dispose medications if other options are not available. Mix your drugs with these household products, seal them in an airtight container and throw it into the garbage. Call [facility]: [phone] to be sure your drugs can be [...] aware that I should contact my doctor. 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 Signature: Date/Time: Relationship to Patient: Witness Name/Signature: Date/Time: [facility] 01-10-2025 Discharge summary Date of Service 01/10/2025 Discharge Diagnosis STEMI status post PCI to [facility] Hospital Course Patient is a 79-year-old male with history of CAD with PCI on 11/27/2024 with in-stent thrombosis requiring repeat PCI, ischemic cardiomyopathy, type 2 diabetes mellitus, hyperlipidemia and hypothyroidism presented from [place] as a transfer for concerns with complete [...] EGD and colonoscopy for similar reasons at [facility], requested records, GI was consulted who recommended no intervention at this time and cleared for discharge. He was noted to have AUDRA and received IV iron replacement. Discharged to SNF. Allergies doxycycline stomach upset Procedures [facility] Consults Consult to Physician - Ordered [...] JEFFREY SPIVEY MD When:In 2 weeks Where:[address] [facility] [place] [address]- [phone] Follow Up with Cardiac Rehab- [facility] Where:[address] [place] [address]- Additional Information: Cardiac rehabilitation is a vital part of your recovery and long-term heart health following your hospital stay. It is a medically supervised exercise and education program designed to improve your physical fitness, manage heart-related risk factors, and support emotional well-being. A cardiac rehab steaming machine operator will contact you soon to schedule your follow-up appointment. If you have any questions please call [phone]. Follow Up Appointments No qualifying data available. [...] ARMANDO BAÑUELOS MD on 01/10/2025 01:05 PM [facility] 01-10-2025 Discharge summary Date of Service 01/10/2025 Discharge Diagnosis STEMI status post PCI to [facility] Hospital Course Patient is a 79-year-old male with history of CAD with PCI on 11/27/2024 with in-stent thrombosis requiring repeat PCI, ischemic cardiomyopathy, type 2 diabetes mellitus, hyperlipidemia and hypothyroidism presented from [place] as a transfer for concerns with complete [...] EGD and colonoscopy for similar reasons at [facility], requested records, GI was consulted who recommended no intervention at this time and cleared for discharge. He was noted to have AUDRA and received IV iron replacement. Discharged to SNF. Allergies doxycycline stomach upset Procedures [facility] Consults Consult to Physician - Ordered [...] 2 weeks Where:[address] [facility] [place] [address]- [phone] Follow Up with Cardiac Rehab- [facility] Where:[address] [place] [address]- Additional Information: Cardiac rehabilitation is a vital part of your recovery and long-term heart health following your hospital stay. It is a medically supervised exercise and education program designed to improve your physical fitness, manage heart-related risk factors, and support emotional well-being. A cardiac rehab steaming machine operator will contact you soon to schedule your follow-up appointment. If you have any questions please call [phone]. Follow Up Appointments No qualifying data available. [...] ARMANDO BAÑUELOS MD on 01/10/2025 01:05 PM [facility] 01-10-2025 Gastroenterology Consult note Date of [...] the patient had the same evaluated at [place] on December 25 with a colonoscopy results [...] would like to go back to the [place] [facility] that took care of him up for [...] Painless low-volume rectal bleeding was evaluated at [facility] with a colonoscopy on December 25 [...] COREEN NEWBERRY MD on 01/10/2025 10:03 AM [facility] 01-09-2025 Cardiology Progre ss note Subjective [...] consulted GI, requested EGD colonoscopy reports from [facility] prior - He is a former smoker wheezing on exam, could be having underlying undiagnosed COPD, started on BiPAP and DuoNebs - Iron panel consistent with iron deficiency anemia, started on IV iron replacement - D Dimer not elevated, venous duplex ultrasounds negative for DVT - Patient presented from SNF in [place], pending GI recommendations, he can be discharged to the same facility per case management Digitally Signed by ARMANDO BAÑUELOS MD on 01/09/2025 01:54 PM [facility] 01-09-2025 Cardiology Katlyne ss note Subjective [...] consulted GI, requested EGD colonoscopy reports from [facility] prior - He is a former smoker wheezing on exam, could be having underlying undiagnosed COPD, started on BiPAP and DuoNebs - Iron panel consistent with iron deficiency anemia, started on IV iron replacement - D Dimer not elevated, venous duplex ultrasounds negative for DVT - Patient presented from SNF in [place], pending GI recommendations, he can be discharged to the same facility per case management Digitally Signed by ARMANDO BAÑUELOS MD on 01/09/2025 01:54 PM [facility] 01-09-2025 Note Exam Date Time Procedure Performing Provider Status 01/09/25 12:16 PM Echocardiogram, Adult - CV LOS BRUNO MD; Auth (Verified) [place] [facility] [id number] Cardiology Progress note Subjective Patient seen and examined bedside this morning. Denies any new concerns. Stated he feels much better in regards to his breathing. Reviewed telemetry, continues to have prolonged OH with Mobitz type Iblock intermittent A. tach [...] hematochezia overnight - Telemetry reviewed showing prolonged OH with Mobitz type I and with intermittent A. tach episodes, spoke to EP fellow advised to start on low-dose beta-jeffrey, and started on medical succinate 12.5 mg daily, will uptitrate as he tolerates. - He has reduced EF, on GDMT with Toprol, losartan, Jardiance and spironolactone - Repeat limited echo order to evaluate for EF - Awaiting records from [facility] for EGD and colonoscopy - He is a former smoker wheezing on exam, could be having underlying undiagnosed COPD, started on BiPAP and DuoNebs - Iron panel consistent with iron deficiency anemia, started on IV iron replacement - D Dimer not elevated, venous duplex ultrasounds negative for DVT Digitally Signed by ARMANDO BAÑUELOS MD on 01/08/2025 02:21 PM [place] [facility] HospitalIjnyngqu09-07-8766 Cardiology Progress note Subjective Patient seen and examined bedside this morning. Denies any new concerns. Stated he feels much better in regards to his breathing. Reviewed telemetry, continues to have prolonged OH with Mobitz type Iblock intermittent A. tach [...] hematochezia overnight - Telemetry reviewed showing prolonged OH with Mobitz type I and with intermittent A. tach episodes, spoke to EP fellow advised to start on low-dose beta-jeffrey, and started on medical succinate 12.5 mg daily, will uptitrate as he tolerates. - He has reduced EF, on GDMT with Toprol, losartan, Jardiance and spironolactone - Repeat limited echo order to evaluate for EF - Awaiting records from [facility] for EGD and colonoscopy - He is a former smoker wheezing on exam, could be having underlying undiagnosed COPD, started on BiPAP and DuoNebs - Iron panel consistent with iron deficiency anemia, started on IV iron replacement - D Dimer not elevated, venous duplex ultrasounds negative for DVT Digitally Signed by ARMANDO BAÑUELOS MD on 01/08/2025 02:21 PM [place] [facility] HospitalFtpbigug78-10-5336 Cardiology Progress note Subjective Patient seen and examined bedside this morning. Denies any new concerns. To be reviewed showing prolonged OH interval with Mobitz type I block. No [...] has been stable - Awaiting records from [facility] for EGD and colonoscopy - He [...] ARMANDO BAÑUELOS MD on 01/07/2025 12:28 PM [place] [facility] HospitalFsokftic19-66-8879 Note* Exam Date Time Procedure Performing Provider Status 01/07/25 4:15 PM VL Venous US/Doppler Both Legs(for DVT) MICHAEL SIMENTAL MD; Auth (Verified) [place] [facility] [id number] Cardiology Progress note Subjective Patient seen and examined bedside this morning. Denies any new concerns. To be reviewed showing prolonged OH interval with Mobitz type I block. No [...] has been stable - Awaiting records from [facility] for EGD and colonoscopy - He [...] ARMANDO BAÑUELOS MD on 01/07/2025 12:28 PM [place] [facility] HospitalMmxdpsfo02-17-3853 Respiratory therapy Hospital Progress note Respiratory Therapy [...] by Melissa Olmstead on 01/06/2025 07:55 PM [place] [facility] HospitalUuvhgecu08-55-4155 Note* Exam Date Time Procedure Performing Provider Status 01/06/25 11:41 AM Electrocardiogram - EKG - CV MIN MADRID MD; Auth (Verified) ECG Final Report SINUS RHYTHM SECOND DEG AVB, MOBITZ I (ANAYANCMARLEY) LOW VOLTAGE, EXTREMITY LEADS REPOL ABNRM SUGGESTS ISCHEMIA, DIFFUSE LEADS ST ELEVATION, CONSIDER INFERIOR INJURY Probable posterior wall involvement PROLONGED QT INTERVAL Electronic Signature: MIN MADRID MD 01/07/2025 17:41:04 [place] [facility] HospitalHymhevpv08-19-0891 Note* Exam Date Time Procedure Performing Provider Status 01/06/25 11:20 AM XR Chest 1 View IZZY, JIMMY MD; Aut h (Verified) [id number] ORIGINAL EXAMINATION: ONE XRAY VIEW OF THE [...] Sign Date: 01/06/2025 11:26:21 AM Ordering Provider: [facility] ([facility]09-06-2025 History and physical note Date of Service 01/03/2025 Chief Complaint Chest pain History of Present Illness 79-year-old male past medical history of CAD with multiple PCI, hypertension, hyperlipidemia, diabetes, hypothyroidism, heart failure who was transferred from [facility] for complete heart block requiring EP [...] seen on Holter monitor and presented to [facility] subsequently. Patient denies any dyspnea on exertion, orthopnea, PND, lower extremity edema, or palpitations. Patient is in sinus rhythm with occasional ectopic atrial arrhythmia. On admission troponin 7K EKG showing mild ST elevation in lead II, [address] depression in leads V1 to V4 may be chronic from prior [place]. Review of Systems Same as HPI Physical [...] hypothyroidism, heart failure who was transferred from [facility] for complete heart block requiring EP [...] ISREAL JACKSON MD on 01/04/2025 09:30 AM [place] [facility] HospitalVfzfqici86-54-0710 Note* Exam Date Time Procedure Performing Provider Status 01/06/25 10:05 AM Electrocardiogram - EKG - CV MIN MADRID MD; Auth (Verified) ECG Final Report AV Dissociation CONSIDER CHB NONSPECIFIC INTRAVENTRICULAR CONDUCTION DELAY INFERIOR INFARCT, ACUTE (LCX) Electronic Signature: MIN MADRID MD 01/07/2025 17:45:03 [place] [facility] HospitalMskkofmj91-58-2016 Note* Exam Date Time Procedure Performing Provider Status 01/05/25 8:24 PM Echocardiogram, Adult - CV GUSTABO CORONADO MD; Auth (Verified) [place] [facility] [id number] Note* Exam Date Time Procedure Performing Provider Status 01/05/25 2:44 PM Electrocardiogram - EKG - CV ABRAHAMP BRITTON PINZON MD; Auth (Verified) ECG Final Report SINUS RHYTHM PROLONGED OH INTERVAL NONSPECIFIC INTRAVENTRICULAR CONDUCTION DELAY LOW VOLTAGE, EXTREMITY LEADS REPOL ABNRM SUGGESTS ISCHEMIA, DIFFUSE LEADS ACUTE INFERIOR INFACRT Electronic Signature: BRITTON LEDEZMA MD 01/06/2025 18:58:38 [place] [facility] HospitalZzaqihph56-11-0777 Note Date of Service 01/05/2025 Subjective Patient [...] KEREN WARNER MD on 01/05/2025 11:25 AM [place] [facility] HospitalDggysmhl32-60-8817 Note* Exam Date Time Procedure Performing Provider Status 01/05/25 2:02 PM XR Chest 1 View SALLY THRASHER MD; Aut h (Verified) [id number] ORIGINAL EXAMINATION: ONE XRAY VIEW OF THE [...] 01/05/2025 2:09:48 PM Ordering Provider: COREY PETERSON [place] [facility] HospitalDdqrtgfp04-15-0721 Note Date of Service 01/05/2025 Subjective Patient [...] KEREN WARNER MD on 01/05/2025 11:25 AM [place] [facility] HospitalWouwkpsj47-42-1413 Note* Exam Date Time Procedure Performing Provider Status 01/05/25 10:34 AM Electrocardiogram - EKG - CV BRITTON MONAE MD; Auth (Verified) ECG Final Report SINUS RHYTHM PROLONGED OH INTERVAL NONSPECIFIC INTRAVENTRICULAR CONDUCTION DELAY INFERIOR INFARCT, ACUTE (RCA) PROBABLE RV INVOLVEMENT, SUGGEST RECORDING RIGHT PRECORDIAL LEADS Electronic Signature: BRITTON LEDEZMA MD 01/06/2025 18:58:15 [place] [facility] HospitalTgidnguw30-39-7528 Note* Exam Date Time Procedure Performing Provider Status 01/05/25 5:43 AM Electrocardiogram - EKG - CV TABITHA SANDOVAL MD; Auth (Verified) ECG Final Report SINUS RHYTHM PROLONGED OH INTERVAL NONSPECIFIC INTRAVENTRICULAR CONDUCTION DELAY REPOL ABNRM SUGGESTS ISCHEMIA, ANTEROLATERAL ST ELEVATION, CONSIDER INFERIOR INJURY Electronic Signature: PENELOPE SANDOVAL MD 01/05/2025 15:34:11 [place] [facility] HospitalJaraoein05-07-9357 Cardiology Consult note Date of Service 01/04/2025 Reason for Consultation Complete heart block Referring Physician General Cardiology History of Present Illness 79-year-old male with past medical history of CAD with multiple PCI, hypertension, hyperlipidemia, diabetes, hypothyroidism, heart failure who was transferred from [facility] for complete heartblock requiring EP evaluation. [...] KEREN WARNER MD on 01/04/2025 11:15 AM [place] [facility] HospitalUmvbkmkw32-87-8521 Note* Exam Date Time Procedure Performing Provider Status 01/04/25 1:51 PM Electrocardiogram - EKG - CV TABITHA SANDOVAL MD; Auth (Verified) ECG Final Report SINUS BRADYCARDIA PROLONGED OH INTERVAL LOW VOLTAGE, EXTREMITY LEADS PROBABLE POSTERIOR INFARCT, RECENT ST ELEVATION, CONSIDER INFERIOR INJURY LATERAL LEADS ARE ALSO INVOLVED Electronic Signature: PENELOPE SANDOVAL MD 01/05/2025 15:34:42 [place] [facility] HospitalSwzktgkc08-12-1769 Pastoral care Progress note Pastoral Care Note [...] much recently), desire to get home to [place]. Pastoral Care Visit Length : 10 minute(s) Seymour Garcia - 01/04/2025 13:15 EDT Digitally Signed by Seymour Garcia on 01/04/2025 01:15 PM [place] [facility] HospitalVuyzvrfj96-34-6896 Note* Exam Date Time Procedure Performing Provider Status 01/04/25 12:27 PM Cardiac Catheterization -CV JAN MAYA MD; Auth (Verified) [place] [facility] [id number] Cardiology Consult note Date of Service 01/04/2025 Reason for Consultation Complete heart block Referring Physician General Cardiology History of Present Illness 79-year-old male with past medical history of CAD with multiple PCI, hypertension, hyperlipidemia, diabetes, hypothyroidism, heart failure who was transferred from [facility] for complete heartblock requiring EP evaluation. [...] KEREN WARNER MD on 01/04/2025 11:15 AM [place] [facility] HospitalUimadhft72-13-8569 Note* Exam Date Time Procedure Performing Provider Status 01/03/25 10:07 PM XR Chest 1 View STEPHY LACEY MD; Aut h (Verified) [id number] ORIGINAL EXAMINATION: ONE XRAY VIEW OF THE [...] 01/04/2025 5:39:33 AM Ordering Provider: EVA JERNIGAN [place] [facility] HospitalTlrxcirl94-87-6191 History and physical note Date of Service 01/03/2025 Chief Complaint Chest pain History of Present Illness 79-year-old male past medical history of CAD with multiple PCI, hypertension, hyperlipidemia, diabetes, hypothyroidism, heart failure who was transferred from [facility] for complete heart block requiring EP [...] seen on Holter monitor and presented to [facility] subsequently. Patient denies any dyspnea on exertion, orthopnea, PND, lower extremity edema, or palpitations. Patient is in sinus rhythm with occasional ectopic atrial arrhythmia. On admission troponin 7K EKG showing mild ST elevation in lead II, [address] depression in leads V1 to V4 may be chronic from prior [place]. Review of Systems Same as HPI Physical [...] hypothyroidism, heart failure who was transferred from [facility] for complete heart block requiring EP [...] ISREAL JACKSON MD on 01/04/2025 09:30 AM [place] [facility] HospitalBkacoplk66-41-0457 Evaluation + Plan noteExtracted from: Title:History and Physical Author:ISREAL JACKSON MD Date:01/03/25 79-year-old male past medica l history of CAD with multiple PCI, hypertension, hyperlipidemia, diabetes, hypothyroidism, heart failure who was transferred from [facility] for complete heart block requiring EP [...] otherwise stated. CATH EP EVAL TTE A3 [facility] 09-01-2025 Radiology Diagnostic study [facility]08-26-2025 [facility]08-17-2025 Note [facility]08-17-2025 Hospital Discharge instructionsAdditional Instructions Date of Discharge: 12/17/24[facility] Work Phone: 1(385) 201-430508-16-2025 Progress note Author Marycarmen Marlow [facility] Note Date/Time December 17, 2024 1: 40pm [facility] Medical Records Department [address] [place] [address] Progress Note - Hospitalist 12/16/24 1843 MR#: [id number] Acct: [id number] Name: GERRY RICO Rep #:[id number] : 1945 79 From: Marycarmen Marlow DO PCP: Dr. Marycarmen Rodriguez, DO Status:ADM IN Location: [place] [address] Reason for Visit Chief Complaint: Chest pain Subjective Subjective Patient was seen and examined today, he had nausea and vomiting today and I elected to have him remain in the hospital for now and reevaluate him tomorrow for possible discharge to his senior living. 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 Recommendation Dietitian Will [...] 75.7 H, Lymph % (Auto) 10.7 L, [place] % (Auto) 12.1 H, Eos % (Auto) [...] multiple medical problems-[facility] medically stable Total clinical time spent by myself addressing the patient's medical issues, reviewing all of his data, and collaborating patient's care team: 35 minutes Charges/Coding Visit Charges Inpatient E&M: 03415 Subs Hosp L2 12/17/24 1340 <Electronically signed by Marycarmen Marlow DO> Cosigner Signature (if applicable): CC: ~ Signed [facility] Work Phone: 1(939) 504-332408-16-2025 Progress note Author luis Rodriguez [facility] Note Date/Time December 16, 2024 12 :02pm [facility] Medical Records Department [address] [place] [address] Progress Note 12/16/24 1154 MR#: [id number] Acct: [id number] Name: GERRY RICO Rep #:[id number] : 1945 79 From: Lance Rodriguez MD PCP: Dr. Marycarmen Rodriguez, Status:ADM IN Location: [place] [address] Progress Note He states that his breathing [...] that may raise the possibility of post IN pericarditis and may explain some of his [...] Cosigner Signature (if applicable): CC: ~ Signed [facility] Work Phone: 1(696) 540-677808-15-2025 History and physical note Author Ramonita Herron [facility] Note Date/Time December 15, 2024 3: 23pm [facility] Medical Records Department [address] [place] [address] H&P Exam - Hospitalist 12/15/24 1435 MR#: [id number] Acct: [id number] Name: GERRY RICO Rep #:[id number] : 1945 79 From: Ramonita Herron MD PCP: Dr. Marycarmen Rodriguez, DO Status:ADM IN Location: [facility] JKL910- 1 HPI - General General Date of Admission: 12/15/24 Date of Service: 12/15/24 Chief Complaint: Chest pain HPI Narrative GERRY RICO, is a 79-year-old male history of CKD, heart failure, coronary artery disease, COPD, recent STEMI after an in-stent thrombosis who presented [facility] ED 12/15/2024 for active chest [...] legs are actually less swollen than usual. [facility] Medical History Recent ST elevation myocardial infarction (STEMI) Chest pain History of acute inferior wall IN Acute ST elevation myocardial infarction (STEMI) of [...] attack) Obstructive sleep apnea Atherosclerotic heart disease burns paiute coronary artery w/angina pectoris Type 2 diabetes [...] household members: spouse and none housing: senior living Smoking Status: Former smoker quit date: 05/03/98 [...] 79.3 H, Lymph % (Auto) 9.7 L, [place] % (Auto) 9.9, Eos % (Auto) 0.1, Baso % (Auto) 0.2, Absolute Neuts (auto) 11.7 H, Absolute Lymphs (auto) 1.43, Nucleated RBC % 0, PT 16.8 H, INR 1.3, HRAH133.8 H*, Sodium 129 L, Potassium 4.5, Chloride [...] which she was taken back to the [facility] - He was subsequently discharged but readmitted again as a STEMI alert however heart cath at that time showed no acute process -Trop initially 1137, though this is down from 12/07 when his troponin was 7100, will trend - Cardiology on consult - [facility] examined patient's EKG, looks similar to previous send not taken emergently to [facility] - There is concern that he could have Ric syndrome as he has a small pericardial effusion there is theoretically the risk of post [place] pericarditis, cardiology to initiate colchicine -NSAIDs to [...] 78 Minutes Charges/Coding Visit Charges Inpatient E&M: 36585 Init Hosp L3 12/15/24 1523 <Electronically signed by Ramonita Herron MD> Cosigner Signature (if applicable): CC: Dr. Marycarmen Rodriguez DO; Dr. Ramonita Herron MD~ Signed [facility] Work Phone: 1(927) 125-673908-15-2025 Consult note Author Sunil Faye [facility] Note Date/Time December 15, 2024 2: 19pm [facility] Medical Records Department [address] [place] [address] Consultation - Cardiology 12/15/24 1337 MR#: [id number] Acct: [id number] Name: GERRY RICO Rep #:[id number] : [...] that may raise the possibility of post [place] pericarditis and may explain some of his [...] diabetes mellitus without complications: QUALIFIERS: Diabetes mellitus mcfp insulin use: 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 Qualified Code(s): E11.9 - Type 2 [...] diabetes mellitus, and remote history of TIA [facility] Medical History Recent ST elevation myocardial infarction (STEMI) Chest pain History of acute inferior wall IN Acute ST elevation myocardial infarction (STEMI) of [...] attack) Obstructive sleep apnea Atherosclerotic heart disease burns paiute coronary artery w/angina pectoris Type 2 diabetes [...] household members: spouse and none housing: senior living Smoking Status: Former smoker quit date: 05/03/98 [...] 79.3 H, Lymph % (Auto) 9.7 L, [place] % (Auto) 9.9, Eos % (Auto) 0.1, [...] 79.3 H, Lymph % (Auto) 9.7 L, [place] % (Auto) 9.9, Eos % (Auto) 0.1, [...] No acute abnormality is seen. Reading Location: [facility] Risk Score for UA/STEMI Assesmment (YES = 1) Risk Stratification Applicable: No 12/15/24 1419 <Electronically signed by Sunil Faye MD> Cosigner Signature (if applicable): CC: Dr. Marycarmen Rodriguez DO~ Signed [facility] Work Phone: 1(714) 297-844608-15-2025 Discharge summary Author Payalveronica Weldon [facility] Note Date/Time December 15, 2024 1: 39pm [facility] Medical Records Department [address] [place] [address] Emergency Department Summary 12/15/24 MR#: [id number] Acct: [id number] Name: GERRY RICO Rep #:[id number] : [...] moderately. Denies any leg edema, fevers, cough. [facility] Recent ST elevation myocardial infarction (STEMI) Chest pain History of acute inferior wall IN Acute ST elevation myocardial infarction (STEMI) of [...] attack) Obstructive sleep apnea Atherosclerotic heart disease burns paiute coronary artery w/angina pectoris Type 2 diabetes [...] household members: spouse and none housing: senior living Smoking Status: Former smoker quit date: 05/03/98 [...] room air. EKG showing ventricular rate 98, [place] 186, QTc 357. Left axis deviation. Compared [...] 79.3 H Lymph % (Auto) 9.7 L [place] % (Auto) 9.9 Eos % (Auto) 0.1 [...] No acute abnormality is seen. Reading Location: [facility] Chest x-ray independently interpreted myself showing cardiomegaly. Largely unchanged from previous compared on 12/07/2024 EKG Initial EKG: Attestation: I personally reviewed and interpreted this EKG as follows: Interpretation: Sinus Rhythm Comments: EKG independently interpreted by myself showing evidence of normal sinus rhythm. Ventricular rate 98, OH 186, QTc 357. Left axis deviation. Compared to previous EKG on 12/07/2024 ST elevation in lead III largely unchanged. Concerned that there may be slightly more elevation in lead II and V6 compared to 12/07 concerning for new ischemia. STEMI alert activated. 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 Call [facility] ([phone]) or report to the closest Emergency Room. Call 911 if necessary. 12/15/24 1339 <Electronically signed by Payal Weldon DO> Cosigner Signature (if applicable): CC: Dr. Marycarmen Rodriguez DO ~ Signed [facility] Work Phone: 1(295) 431-961008-15-2025 Radiology Diagnostic study [facility]08-08-2025 Discharge summary Author Alex Sanon [facility] Note Date/Time December 08, 2024 12: 26pm [facility] Medical Records Department [address] [place] [address] Discharge Summary 12/08/24 1222 MR#: [id number] Acct: [id number] Name: GERRY RICO Rep #:[id number] : 1945 79 From: Alex Sanon MD PCP: Dr. Marycarmen Marly, DO Status:ADM EDMUND [facility] Providers Date of Admission: 12/07/24 Primary Care Physician: Dr. Marycarmen Rodriguez DO Reason For Visit: SHORTNESS OF BREATH. 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 [...] his ECF 2. Recent acute inferior wall IN ? This was complicated by PLV dissection [...] ? Patient was recently discharged to a jail facility plan is for patient to be [...] 74.1 H, Lymph % (Auto) 11.4 L, [place] % (Auto) 12.1 H, Eos % (Auto) [...] probability scan for pulmonary embolism. Reading Location: [id number] D/C Instructions Discharge Activity: Return to Normal [...] Uncertain Cause Additional Instructions / Restrictions: The correctional medicine physician wanted to make sure you are taking [...] in before D/C Order can be placed): Shelter Facility Charges/Coding Visit Charges Inpatient E&M: 41795 Disch Hosp >30min 12/08/24 1226 <Electronically signed by Alex Sanon MD> Cosigner Signature (if applicable): CC: Dr. Alex Sanon MD; Dr. Marycarmen Rodriguez DO~ Signed [facility] Work Phone: 1(990) 709-632708-08-2025 [facility]08-08-2025 Nuclear medicine Diagnostic study [facility]08-08-2025 Progress note Author Alex Sanon [facility] Note Date/Time December 08, 2024 9:2 1am [facility] Medical Records Department [address] [place] [address] Progress Note - Hospitalist 12/08/24 0734 MR#: [id number] Acct: [id number] Name: GERRY RICO Rep #:[id number] : 1945 79 From: Alex Sanon MD PCP: Dr. Marycarmen Rodriguez DO Status:ADM EDMUND Location: [place] [address] Subjective Subjective Patient is a 79-year-old gentleman with recent history of acute inferior STEMI which was complicated by distal PLV dissection who was discharged to a jail facility brought back with shortness of breath. [...] 79.0 H, Lymph % (Auto) 7.9 L, [place] % (Auto) 11.5 H, Eos % (Auto) [...] IMPRESSION: No acute cardiopulmonary process Reading Location: [facility] Physical Exam Narrative GENERAL: cooperative HEENT: Atraumatic; [...] PLV dissection who was discharged to a jail facility brought back with shortness of breath. Patient was found to have elevated D-dimer admitted to monitored bed VQ scan ordered for subsequent evaluation 1. Exertional dyspnea ? Patient was found to have elevated D-dimer admitted to monitored bed VQ scan ordered for subsequent evaluation 2. Recent acute inferior wall IN ? This was complicated by PLV dissection [...] ? Patient was recently discharged to a jail facility plan is for patient to be [...] Subcu heparin Charges/Coding Visit Charges Inpatient E&M: 09722 Subs Hosp L2 12/08/24 0921 <Electronically signed by Alex Sanon MD> Cosigner Signature (if applicable): CC: ~ Signed [facility] Work Phone: 1(107) 156-709008-07-2025 History and physical note Author Shaan Santos [facility] Note Date/Time December 07, 2024 4:4 8pm [facility] Medical Records Department [address] [place] [address] [place] [address] H&P Exam - Hospitalist 12/07/24 1633 MR#: [id number] Acct: [id number] Name: GERRY RICO Rep #:[id number] : 1945 79 From: Shaan Santos DO PCP: Dr. Marycarmen Rodriguez, DO Status:ADM EDMUND Location: [place] [address] HPI - General General Date of Service: [...] currently on room air and breathing comfortably. [facility] Medical History Anxiety Depression Diabetes Kidney disease [...] attack) Obstructive sleep apnea Atherosclerotic heart disease burns paiute coronary artery w/angina pectoris Type 2 diabetes [...] household members: spouse and none housing: senior living Smoking Status: Former smoker quit date: 05/03/98 [...] 79.0 H, Lymph % (Auto) 7.9 L, [place] % (Auto) 11.5 H, Eos % (Auto) [...] IMPRESSION: No acute cardiopulmonary process Reading Location: [facility] Assessment & Plan Assessment/Plan (1) Shortness of [...] at bedside. Charges/Coding Visit Charges Inpatient E&M: 02178 Init Hosp L3 12/07/24 1648 <Electronically signed by Shaan Santos DO> Cosigner Signature (if applicable): CC: Dr. Shaan Santos DO; Dr. Marycarmen Rodriguez DO~ Signed [facility] Work Phone: 1(237) 890-484108-07-2025 Radiology Diagnostic study [facility]08-06-2025 Consult note Author Cyndie Frye [facility] Note Date/Time December 06, 2024 12: 22pm [facility] Medical Records Department [address] [place] [address] Counseling Note - Pharmacy 12/06/24 1222 MR#: [id number] Acct: [id number] Name: GERRY RICO Rep #:[id number] : 1945 79 From: Cyndie Frye PCP: Dr. Marycarmen Rodriguez, DO Status:ADM IN Y Location: [place] [address] [place]acy [place] Med Reconciliation Pharmacy Service has performed discharge [...] Signature (if applicable): Date CC: ~ Signed [facility] Work Phone: 1(984) 939-462208-06-2025 Hospital Discharge instructionsAdditional Instructions Date of Discharge: 12/06/24[facility] Work Phone: 1(343) 291-816208-06-2025 Discharge summary Author Alex Sanon [facility] Note Date/Time December 06, 2024 11: 59am [facility] Medical Records Department [address] [place] [address] [facility] MR#: [id number] Acct: [id number] Name: GERRY RICO Rep #:[id number] : 1945 79 From: Alex Sanon MD PCP: Dr. Marycarmen Rodriguez, DO Status:ADM IN Certification of patient admission REQUIRED AT TIME OF ADMISSION. I CERTIFY THAT POST-HOSPITAL ECF SERVICES ARE REQUIRED TO BE GIVEN ON AN IN-PATIENT BASIS BECAUSE OF THE ABOVE NAMED PATIENT'S NEED FOR FPC CARE ON A CONTINUING BASIS FOR THE CONDITION(S) FOR WHICH HE/SHE WAS RECEIVING IN-PATIENT HOSPITAL SERVICES PRIOR TO HIS/HER TRANSFER TO THE [facility]. 12/06/24 8534<Electronically signed by Alex Sanon MD> Diet Diet [...] 1. Recent history of acute inferior wall IN with persistent EKG changes; episode of ventricular [...] Requested for PT OT eval and social services coordinator to assist with discharge planning ? 12/06/2024 plan is for patient to be discharged to a jail facility pending bed availability as well as [...] in before D/C Order can be placed): Shelter Facility 12/06/24 1159 <Electronically signed by Alex Sanon MD> Cosigner Signature (if applicable): CC: Dr. Abraham Ridley DO; Dr. Mickey Simpson MD; Dr. Marycarmen Rodriguez DO;Dr. Ramonita Herron MD ~ [facility] Work Phone: [phone]) 826-247708-06-2025 Discharge summary Author Alex [facility] Note Date/Time December 06, 2024 11: 55am [facility] Medical Records Department [address] [place] [address] [facility] MR#: [id number] Acct: [id number] Name: GERRY RICO Rep #:[id number] : 1945 79 From: Alex Sanon MD PCP: Dr. Marycarmen Rodriguez DO Status:ADM IN Certification of patient admission REQUIRED AT TIME OF ADMISSION. I CERTIFY THAT POST-HOSPITAL F SERVICES ARE REQUIRED TO BE GIVEN ON AN IN-PATIENT BASIS BECAUSE OF THE ABOVE NAMED PATIENT'S NEED FOR FPC CARE ON A CONTINUING BASIS FOR THE CONDITION(S) FOR WHICH HE/SHE WAS RECEIVING IN-PATIENT HOSPITAL SERVICES PRIOR TO HIS/HER TRANSFER TO THE [facility]. 12/06/24 1155<Electronically signed by Alex Sanon MD> [...] 1. Recent history of acute inferior wall IN with persistent EKG changes; episode of ventricular [...] Requested for PT OT eval and social services coordinator to assist with discharge planning ? 12/06/2024 plan is for patient to be discharged to a jail facility pending bed availability as well as [...] in before D/C Order can be placed): Shelter Facility 12/06/24 1155 <Electronically signed by Alex Sanon MD> Cosigner Signature (if applicable): CC: Dr. Abraham Ridley DO; Dr. Mickey Simpson MD; Dr. Marycarmen Rodriguez DO;Dr. Ramonita Herron MD ~ [facility] Work Phone: [phone]) 146-609608-06-2025 Discharge summary Author Alex [facility] Note Date/Time December 06, 2024 11: 53am [facility] Medical Records Department [address] [place] [address] Discharge Summary 12/06/24 1146 MR#: [id number] Acct: [id number] Name: GERRY RICO Rep #:[id number] : 1945 79 From: Alex Sanon MD PCP: Dr. Marycarmen Rodriguez DO Status:ADM IN Location: [facility] [id number]- 1 Providers Date of Admission: 12/03/24 Date [...] 1. Recent history of acute inferior wall IN with persistent EKG changes; episode of ventricular [...] Requested for PT OT eval and social services coordinator to assist with discharge planning ? 12/06/2024 plan is for patient to be discharged to a jail facility pending bed availability as well as [...] 72.7 H, Lymph % (Auto) 11.6 L, [place] % (Auto) 12.9 H, Eos % (Auto) [...] in before D/C Order can be placed): Shelter Facility Charges/Coding Visit Charges Inpatient E&M: 23286 Disch Hosp >30min 12/06/24 1153 <Electronically signed by Alex Sanon MD> Cosigner Signature (if applicable): CC: Dr. Alex Sanon MD; Dr. Marycarmen Rodriguez, DO~ Signed [facility] Work Phone: 1(876) 579-838308-06-2025 [facility]08-06-2025 Progress note Author Alex Sanon [facility] Note Date/Time December 06, 2024 8:4 0am [facility] Medical Records Department [address] [place] [address] Progress Note - Hospitalist 12/06/24 0838 MR#: [id number] Acct: [id number] Name: GERRY RICO Rep #:[id number] : 1945 79 From: Alex Sanon MD PCP: Dr. Marycarmen Rodriguez, Status:ADM IN Location: [place] [id number]- [id number] Reason for Visit Chief Complaint: Chest Pain with STEMI alert. Subjective Subjective Patient seen remains physically deconditioned. Was seen in consultation by physical therapy recommendation is for patient to be discharged to a jail facility case management subsequently consulted Objective Data [...] 72.7 H, Lymph % (Auto) 11.6 L, [place] % (Auto) 12.9 H, Eos % (Auto) [...] 1. Recent history of acute inferior wall IN with persistent EKG changes; episode of ventricular [...] Requested for PT OT eval and social services coordinator to assist with discharge planning ? 12/06/2024 plan is for patient to be discharged to a jail facility pending bed availability as well as insurance precertification Time spent in the patient's overall evaluation,decision-making process, review of diagnostic data, adjustment of management, discussion with other providers, nursing nursing and ancillary staff involved in patient's care documentation, 36 Minutes Charges/Coding Visit Charges Inpatient E&M: 08601 Subs Hosp L2 Date medically ready for discharge: 12/06/24 Reason for DC delay: Precert pending from insurance 12/06/24 0840 <Electronically signed by Alex Sanon MD> Cosigner Signature (if applicable): CC: ~ Signed [facility] Work Phone: 1(172) 146-155808-06-2025 Progress note Author Marcin Araujo [facility] Note Date/Time December 06, 2024 7:5 1am [facility] Medical Records Department [address] [place] [address] Progress Note - Cardiology 12/06/24 0747 MR#: [id number] Acct: [id number] Name: GERRY RICO Rep #:[id number] : 1945 79 From: Marcin Araujo MD PCP: Dr. Marycarmen Rodriguez, DO Status:ADM IN Location: [place] [address] Subjective Subjective Patient seen and evaluated. Appears [...] 72.7 H, Lymph % (Auto) 11.6 L, [place] % (Auto) 12.9 H, Eos % (Auto) [...] 72.7 H, Lymph % (Auto) 11.6 L, [place] % (Auto) 12.9 H, Eos % (Auto) [...] Assessment/Plan (1) History of acute inferior wall IN: PLAN: Patient underwent cardiac catheterization and the [...] Cosigner Signature (if applicable): CC: ~ Signed [facility] Work Phone: 1(796) 648-885008-05-2025 Progress note Author Alex Sanon [facility] Note Date/Time December 05, 2024 10: 29am [facility] Medical Records Department [address] [place] [address] Progress Note - Hospitalist 12/05/24 1019 MR#: [id number] Acct: [id number] Name: GERRY RICO Rep #:[id number] : 1945 79 From: Alex Sanon MD PCP: Dr. Marycarmen Rodriguez, DO Status:ADM IN Location: [place] [address] Reason for Visit Chief Complaint: Chest Pain [...] 1. Recent history of acute inferior wall IN with persistent EKG changes; episode of ventricular [...] Requested for PT OT eval and social services coordinator to assist with discharge planning Time spent in the patient's overall evaluation,decision-making process, review of diagnostic data, adjustment of management, discussion with other providers, nursing nursing and ancillary staff involved in patient's care documentation, 38 Minutes Charges/Coding Visit Charges Inpatient E&M: 73530 Subs Hosp L2 12/05/24 1029 <Electronically signed by Alex Sanon MD> Cosigner Signature (if applicable): CC: ~ Signed [facility] Work Phone: 1(328) 718-575808-05-2025 Progress note Author Marcin Araujo [facility] Note Date/Time December 05, 2024 7:5 3am [facility] Medical Records Department [address] [place] [address] Progress Note - Cardiology 12/05/24 0745 MR#: [id number] Acct: [id number] Name: GERRY RICO Rep #:[id number] : 1945 79 From: Marcin Araujo MD PCP: Dr. Marycarmen Rodriguez, DO Status:ADM IN Location: [place] [address] Subjective Subjective Patient seen and evaluated. Doing [...] Assessment/Plan (1) History of acute inferior wall IN: PLAN: Patient underwent cardiac catheterization and the [...] discharged. Will also keep magnesiumover 2. 12/05/24 6720 <Electronically signed by Marcin Araujo MD> Cosigner Signature (if applicable): CC: ~ Signed [facility] Work Phone: 1([phone] 988-269908-04-2025 Progress note Author Abraham Ridley [facility] Note Date/Time December 04, 2024 2:2 1pm [facility] Medical Records Department [address] [place] [address] Progress Note - Hospitalist 12/04/24 1057 MR#: [id number] Acct: [id number] Name: GERRY RICO Rep #:[id number] : 1945 79 From: Abraham inman DO PCP: Dr. Marycarmen Rodriguez, DO Status:ADM IN Location: [place] [address] Reason for Visit Chief Complaint: Chest Pain [...] 73.9 H, Lymph % (Auto) 11.1 L, [place] % (Auto) 11.9 H, Eos % (Auto) [...] Patient is a 79-year-old male who presented [facility] ED on 12/02/2024 as a STEMI alert. 1. Recent history of acute inferior wall IN with persistent EKG changes; episode of ventricular [...] 35 minutes. Charges/Coding Visit Charges Inpatient E&M: 09695 Subs Hosp L2 12/04/24 1421 <Electronically signed by Abraham Ridley DO> Cosigner Signature (if applicable): CC: ~ Signed [facility] Work Phone: [phone] 827-291508-04-2025 Progress note Author Marcin Araujo [facility] Note Date/Time December 04, 2024 8:5 2am [facility] Medical Records Department [address] [place] [address] Progress Note - Cardiology 12/04/24724 MR#: [id number] Acct: [id number] Name: GERRY RICO Rep #:[id number] : 1945 79 From: Marcin Araujo MD PCP: Dr. Marycarmen Rodriguez, Status:ADM IN Location: [place] [address] Subjective Subjective Patient seen and evaluated. Sleeping. [...] Clarity Clear, Urine pH 6.0, Ur Specific [place] 1.015, Urine Protein 15 H, Urine Glucose [...] 75.5 H, Lymph % (Auto) 10.5 L, [place] % (Auto) 11.4 H, Eos % (Auto) [...] 73.9 H, Lymph % (Auto) 11.1 L, [place] % (Auto) 11.9 H, Eos % (Auto) [...] Clarity Clear, Urine pH 6.0, Ur Specific [place] 1.015, Urine Protein 15 H, Urine Glucose [...] 75.5 H, Lymph % (Auto) 10.5 L, [place] % (Auto) 11.4 H, Eos % (Auto) [...] 73.9 H, Lymph % (Auto) 11.1 L, [place] % (Auto) 11.9 H, Eos % (Auto) 2.2, Baso % (Auto) 0.3, Absolute Neuts (auto) 7.1, Nucleated RBC % 0, Sodium 137, Potassium 3.1 L, Chloride 96 L, Carbon Dioxide 21.4, Anion Gap 19 H, BUN 49 H, Creatinine 2.53 H, Est GFR (MDRD) Non-Af 25 L, BUN/Creatinine Ratio 19.4, Easfwlx017 H, Calcium 9.2 Rhythm: EKG: ECHO: Stress [...] Assessment/Plan (1) History of acute inferior wall IN: PLAN: Patient underwent cardiac catheterization and the [...] Cosigner Signature (if applicable): CC: ~ Signed [facility] Work Phone: 1([phone] 210-921308-04-2025 Consult note Author Marcin Araujo [facility] Note Date/Time December 04, 2024 6:4 7am [facility] Medical Records Department [address] [place] [address] Consultation - Cardiology 12/03/24 1241 MR#: [id number] Acct: [id number] Name: GERRY RICO Rep #:[id number] : 1945 79 From: Marcin Araujo MD PCP: Dr. Marycarmen Rodriguez, DO Status:ADM IN Location: [place] [id number]- 1 Documented by User: Dr. 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 Type 2 diabetes [...] 76.7 H, Lymph % (Auto) 8.9 L, [place] % (Auto) 12.7 H, Eos % (Auto) [...] Calcium 9.1, Troponin T High Sens > 99550 H* D 12/02/24 20:29: Activated Clotting Time 245 H 12/02/24 22:43: Troponin T Hi Sens 2 Hr > 72678 H* 12/03/24 01:17: Troponin T Hi Sens 4Hr > 35908 H* 12/03/24 06:14: POC Glucose 140 H 12/03/24 07:20: Urine Color Yellow, Urine Clarity Clear, Urine pH 6.0, Ur Specific [place] 1.015, Urine Protein 15 H, Urine Glucose [...] 75.5 H, Lymph % (Auto) 10.5 L, [place] % (Auto) 11.4 H, Eos % (Auto) [...] 76.7 H, Lymph % (Auto) 8.9 L, [place] % (Auto) 12.7 H, Eos % (Auto) [...] Clarity Clear, Urine pH 6.0, Ur Specific [place] 1.015, Urine Protein 15 H, Urine Glucose [...] 75.5 H, Lymph % (Auto) 10.5 L, [place] % (Auto) 11.4 H, Eos % (Auto) [...] Assessment/Plan (1) History of acute inferior wall IN: (2) Coronary artery vasospasm: (3) CHF (congestive heart failure): QUALIFIERS: Heart failure chronicity: acute on chronic Heart failure type: diastolic Qualified Code(s): I50.33 - Acute on chronic diastolic (congestive) heart failure (4) Dyslipidemia: HPI Consult Data Date of Consult: 12/04/24 [facility] Medical History Anemia Diabetes mellitus Chronic kidney [...] kidney disease, stage 3 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 Marycarmen Rodriguez DO~ Signed [facility] Work Phone: 1(997) 501-909408-03-2025 Progress note Author Ramonita Herron [facility] Note Date/Time December 03, 2024 3:5 7pm [facility] Medical Records Department [address] [place] [address] Progress Note - Hospitalist 12/03/24 1548 MR#: [id number] Acct: [id number] Name: GERRY RICO Rep #:[id number] : 1945 79 From: Ramonita Herron MD PCP: Dr. Marycarmen Rodriguez DO Status:ADM IN Location: [place] [address] Reason for Visit Chief Complaint: Chest Pain [...] 76.7 H, Lymph % (Auto) 8.9 L, [place] % (Auto) 12.7 H, Eos % (Auto) [...] Calcium 9.1, Troponin T High Sens > 55824 H* D 12/02/24 20:29: Activated Clotting Time 245 H 12/02/24 22:43: Troponin T Hi Sens 2 Hr > 98726 H* 12/03/24 01:17: Troponin T Hi Sens 4Hr > 26428 H* 12/03/24 06:14: POC Glucose 140 H 12/03/24 07:20: Urine Color Yellow, Urine Clarity Clear, Urine pH 6.0, Ur Specific [place] 1.015, Urine Protein 15 H, Urine Glucose [...] 75.5 H, Lymph % (Auto) 10.5 L, [place] % (Auto) 11.4 H, Eos % (Auto) [...] Recent STEMI -Was emergently taken to the [facility] 11/30 due to a STEMI. Emergent cath [...] on 12/02 and went emergently to the [facility] however no intervention was needed or warranted [...] Herron MD Charges/Coding Visit Charges Inpatient E&M: 69787 Subs Hosp L2 12/03/24 4572 <Electronically signed by Ramonita Herron MD> Cosigner Signature (if applicable): CC: ~ Signed [facility] Work Phone: 1(312) 479-526808-03-2025 History and physical note Author Alex Resendez [facility] Note Date/Time December 03, 2024 5:5 6am [facility] Medical Records Department [address] [place] [address] H&P Exam - Hospitalist 12/02/242049 MR#: [id number] Acct: [id number] Name: GERRY RICO Rep #:[id number] : 1945 79 From: Alex Colon DO PCP: Dr. 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 Mr. [...] symptoms are very similar to his previous IN's. There was no report of associated fever,chills, [...] is expected to extend beyond 2 midnights. 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 Patient taken for emergent LHC by [facility] with the patient suspected to have acute coronary vasospasm with no lesion noted so patient will be managed in PCU. Continue present treatment with baby aspirin, ticagrelor and IV heparin. Give acetaminophen as needed for morz-bk-qqlmzeok (level 1-5/10) pain or fever. Give morphine [...] 75 minutes. Charges/Coding Visit Charges Inpatient E&M: 14793 Init Hosp L3 12/03/24 0556 <Electronically signed by Alex Sow DO> Cosigner Signature (if applicable): CC: Dr. Alex Sow DO; Dr. Marycarmen Rodriguez DO~ Signed [facility] Work Phone: 1(262) 711-209808-02-2025 Discharge summary Author Rasheed Canela [facility] Note Date/Time December 02, 2024 8:5 3pm [facility] Medical Records Department [address] [place] [address] Emergency Department Summary 12/02/24 MR#: [id number] Acct: [id number] Name: GERRY RICO Rep #:[id number] : [...] EKG changes consistent with a ST elevation IN. 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 Spoke with Dr. Simpson the lumber tying machine operator. He was made aware of patient's history, EKG findings and prehospital treatment. Lab Data Attestation: I reviewed the patient's lab results. Lab results narrative: EKG was not repeated since prehospital EKG revealed ST elevation IN with reciprocal changes. CBC reveals mild anemia [...] 76.7 H Lymph % (Auto) 8.9 L [place] % (Auto) 12.7 H Eos % (Auto) [...] healthcare provider: Hospitalist (Dr. Alex Handley) and Bookkeeping Machine Operator (fondant machine operator) Critical Care Time Critical Care Time: Yes Critical care time (excluding procedures): 30-74 minutes (15), Including time spent: (History, physical, documentation, prehospital med direction, discussion with , review of prior records and independent rotation of EKG), Discussing w/Patient &/or Family/Director Retirement (Spoke with who informing that he just left the hospital this afternoon to attend his granddaughter's wedding.), Discussing w/Consultants (fondant machine operator and hospitalist) and Arranging Admission or Transfer Discharge Plan Dx/Rx/DC Orders Clinical Impression: Acute ST elevation myocardial infarction (STEMI) of inferior wall, Obstructive sleep apnea, Obesity, Chronic kidney disease, Diabetes mellitus, Hyperlipidemia Disposition Disposition: Acute Care [facility] What to do if you have Problems For any increased pain, shortness of breath, bleeding, nausea or vomiting, chestpain, or any unexpected problems, contact your Primary Care Provider. Call [facility] ([phone]) or report to the closest Emergency Room. Call 911 if necessary. 12/02/242052 <Electronically signed by Rasheed Canela MD> Cosigner Signature (if applicable): CC: Dr. Marycarmen Rodriguez, DO ~ Signed [facility] Work Phone: 1(601) 549-644908-02-2025 Consult note Author Jamar Tapia [facility] Note Date/Time December 02, 2024 12: 23pm [facility] Medical Records Department [address] [place] [address] Consultation - Neurology 12/02/24 1207 MR#: [id number] Acct: [id number] Name: GERRY RICO Rep #:[id number] : 1945 79 From: Jamar Hooker PCP: Dr. Marycarmen Rodriguez, Status:ADM [facility] Assessment and Plan: Neuro Assessment/Plan GERRY IRCO is a 79 M with cv risk [...] questions or concerns. Stroke to sign off. 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 2. Age-related senescent changes. Reading Location: [facility] Active Medications Active Medications Active Medications: [...] mls @ 15 mls/hr 11/30/24 17:25 IV .[id number] PRN Saline Flush Sodium Chloride 250 mls @ 15 mls/hr 11/30/24 17:25 IV .[id number] PRN Additional IVPB Infusion Insulin Human Lispro 0 unit 11/30/24 22:00 12/02/24 06:30 Insulin Lispro 100 Unit/Ml Insuln.Pen SC Not Given [facility] Protocol Labetalol HCl 10 - 20 [...] 10:00 Metolazone 2.5 Mg Tablet PO DAILY [facility] Protocol Metoprolol Succinate 25 mg 12/01/24 [...] Glucerna Shake 120 Ml Liquid PO TIDCM [facility] Ondansetron HCl 4 mg 11/30/24 17:08 [...] or with change in RN caregiver Freq: [id number] Protocol: Activity Type Activity Date Activity User E-sign Co-sign Detail Recorded Client Recorded Date Recorded By Document 12/01/24 20:15 CD [id number] 12/01/24 20:28 CD 12/01/24 20:15 NIH Stroke [...] and with change in RN caregiver. Freq: [id number] Protocol: Activity Type Activity Date Activity User E-sign Co-sign Detail Recorded Client Recorded Date Recorded By Document 12/02/24 10:00 GRIS [id number] 12/02/24 10:20 GRIS 12/02/24 10:00 NIH Stroke [...] Hay MD; Dr. Marycarmen Rodriguez DO~ Signed [facility] Work Phone: 1([phone]) 355-671708-02-2025 Discharge summary Author Rasheed Canela [facility] Note Date/Time December 02, 2024 8:5 3pm [facility] Medical Records Department [address] [place] [address] Emergency Department Summary 12/02/24 MR#: [id number] Acct: [id number] Name: GERRY RICO Rep #:[id number] : [...] EKG changes consistent with a ST elevation IN. 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 Spoke with Dr. Simpson the lumber tying machine operator. He was made aware of patient's history, EKG findings and prehospital treatment. Lab Data Attestation: I reviewed the patient's lab results. Lab results narrative: EKG was not repeated since prehospital EKG revealed ST elevation IN with reciprocal changes. CBC reveals mild anemia [...] 76.7 H Lymph % (Auto) 8.9 L [place] % (Auto) 12.7 H Eos % (Auto) [...] healthcare provider: Hospitalist (Dr. Alex Handley) and Bookkeeping Machine Operator (fondant machine operator) Critical Care Time Critical Care Time: Yes Critical care time (excluding procedures): 30-74 minutes (15), Including time spent: (History, physical, documentation, prehospital med direction, discussion with , review of prior records and independent rotation of EKG), Discussing w/Patient &/or Family/Director Retirement (Spoke with who informing that he just left the hospital this afternoon to attend his granddaughter's wedding.), Discussing w/Consultants (fondant machine operator and hospitalist) and Arranging Admission or Transfer Discharge Plan Dx/Rx/DC Orders Clinical Impression: Acute ST elevation myocardial infarction (STEMI) of inferior wall, Obstructive sleep apnea, Obesity, Chronic kidney disease, Diabetes mellitus, Hyperlipidemia Disposition Disposition: Acute Care [facility] What to do if you have Problems For any increased pain, shortness of breath, bleeding, nausea or vomiting, chestpain, or any unexpected problems, contact your Primary Care Provider. Call [facility] ([phone]) or report to the closest Emergency Room. Call 911 if necessary. 12/02/242052 <Electronically signed by Rasheed Canela MD> Cosigner Signature (if applicable): CC: Dr. Marycarmen Rodriguez, DO ~ Signed [facility] Work Phone: 1([phone]) 356-652308-02-2025 Hospital Discharge instructionsAdditional Instructions 1. It is very important to not miss any doses of your ticagrelor (Brilinta) and aspirin. Please take these as prescribed with no missed doses. If you miss doses you could clot off your stents. Date of Discharge: 12/02/24[facility] Work Phone: 1(323) 449-831008-02-2025 [facility]08-01-2025 Progress note Author Abraham Ridley [facility] Note Date/Time December 01, 2024 8:2 6pm [facility] Medical Records Department [address] [place] [address] Progress Note - Hospitalist 12/01/242020 MR#: [id number] Acct: [id number] Name: GERRY RICO Rep #:[id number] : 1945 79 From: Abraham inman DO PCP: Dr. Marycarmen Rodriguez, DO Status:ADM IN Location: [place] [address] Hospitalist Note Stroke alert called around 7 PM. Last known well 6:55 PM. Patient reported to [facility] that he had left facial [...] that he has had several TIAs in thegast and has had similar symptoms with these [...] Cosigner Signature (if applicable): CC: ~ Signed [facility] Work Phone: 1(874) 381-659008-01-2025 Radiology Diagnostic study [facility]08-01-2025 Progress note Author Nickie Danielson [facility] Note Date/Time December 01, 2024 3:5 0pm [facility] Medical Records Department [address] [place] [address] Progress Note - Hospitalist 12/01/24712 MR#: [id number] Acct: [id number] Name: GERRY RICO Rep #:[id number] : 1945 79 From: Nickie Danielson DO PCP: Dr. Marycarmen Rodriguez, DO Status:ADM IN Location: [place] [id number]- 1 Reason for Visit Chief Complaint: STEMI [...] 80.9 H, Lymph % (Auto) 10.1 L, [place] % (Auto) 7.7, Eos % (Auto) 0.4, Baso % (Auto) 0.2, Absolute Neuts (auto) 15.5 H, Absolute Lymphs (auto) 1.93, Nucleated RBC % 0.1, PT 16.1 H, INR 1.3, APTT 112.9 H*, Sodium 135, Potassium 4.4, Chloride 98, Carbon Wvtligu97.3 L, Anion Gap 19 H, BUN 45 [...] evidence of acute pulmonary disease. Reading Location: [id number] Physical Exam Const alert, oriented x3, no [...] subcu heparin Charges/Coding Visit Charges Inpatient E&M: 12745 Subs Hosp L2 12/01/24 1550 <Electronically signed by Nickie Danielson DO> Cosigner Signature (if applicable): CC: ~ Signed [facility] Work Phone: 1([phone]) 280-145408-01-2025 Progress note Author Marcin Araujo [facility] Note Date/Time December 01, 2024 7:3 7am [facility] Medical Records Department [address] [place] [address] Progress Note - Cardiology 12/01/24 0734 MR#: [id number] Acct: [id number] Name: GERRY RICO Rep #:[id number] : [...] 80.9 H, Lymph % (Auto) 10.1 L, [place] % (Auto) 7.7, Eos % (Auto) 0.4, Baso % (Auto) 0.2, Absolute Neuts (auto) 15.5 H, Absolute Lymphs (auto) 1.93, Nucleated RBC % 0.1, PT 16.1 H, INR 1.3, APTT 112.9 H*, Sodium 135, Potassium 4.4, Chloride 98, Carbon Rbjkico41.3 L, Anion Gap 19 H, BUN 45 [...] 80.9 H, Lymph % (Auto) 10.1 L, [place] % (Auto) 7.7, Eos % (Auto) 0.4, [...] evidence of acute pulmonary disease. Reading Location: [facility] Physical Exam Const alert, oriented [...] Cosigner Signature (if applicable): CC: ~ Signed [facility] Work Phone: 1(648) 295-401507-31-2025 Discharge summary Author Isael Bernabe [facility] Note Date/Time November 30, 2024 9:35 pm [facility] Medical Records Department [address] [place] [address] Emergency Department Summary 11/30/24 MR#: [id number] Acct: [id number] Name: GERRY RICO Rep #:[id number] : [...] was sent, they administeredaspirin, Brilinta, and heparin. 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 Does not have elevation of his white [...] 80.9 H Lymph % (Auto) 10.1 L [place] % (Auto) 7.7 Eos % (Auto) 0.4 [...] myocardial infarction Disposition Disposition: Acute Care [facility] Discharge Date/Time: 11/30/24 15:21 What to do if you have Problems For any increased pain, shortness of breath, bleeding, nausea or vomiting, chestpain, or any unexpected problems, contact your Primary Care Provider. Call [facility] ([phone]) or report to the closest Emergency Room. Call 911 if necessary. 11/30/242134 <Electronically signed by Isael Bernabe MD> Cosigner Signature (if applicable): CC: Dr. Marycarmen Rodriguez, DO ~ Signed [facility] Work Phone: 1([phone]) 681-958207-31-2025 Progress note Author [facility] [place] [facility] Note Date/Time November 30, 2024 9:33 pm [facility] Medical Records Department [address] [place] [address] Quality Report 11/30/24 1605 MR#: [id number] Acct: [id number] Name: GERRY RICO Rep #:[id number] : 1945 79 From: Iasel Bernabe MD PCP: Dr. Marycarmen Rodriguez, DO [...] applicable): Date Donald Bill CC: ~ Signed [facility] Work Phone: 1([phone]) 134-836707-31-2025 History and physical note Author Abraham Ridley [facility] Note Date/Time November 30, 2024 9:30 pm [facility] Medical Records Department [address] [place] [address] H&P Exam - Hospitalist 11/30/24 1705 MR#: [id number] Acct: [id number] Name: GERRY RICO Rep #:[id number] : 1945 79 From: Abraham inman DO PCP: Dr. Marycarmen Rodriguez, DO Status:ADM IN Location: ICU CVICU20 3-1 HPI - General General Date of Admission: 11/30/24 Date of Service: 11/30/24 Chief Complaint: STEMI HPI Narrative GERRY RICO, is a 79 M who presented to [facility] on 11/30/2024 as a STEMI alert. Follows with [facility] with complex CAD history, see office [...] STEMI. He was taken emergently to the [employer] [facility] and coronary angiography revealed a subacute stent [...] room air. No other acute concerns currently. 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 BgyyJ5t from 2022 was 7.7%. Repeat A1c ordered. [...] 75 minutes. Charges/Coding Visit Charges Inpatient E&M: 30745 Init Hosp L3 11/30/24 2130 <Electronically signed by Abraham Ridley DO> Cosigner Signature (if applicable): CC: Dr. Abraham Ridley DO; Dr. Marycarmen Rodriguez DO~ Signed [facility] Work Phone: 1([phone]) 531-175307-31-2025 Radiology Diagnostic study [facility]2025 Consult note Author Jose Hay [facility] Note Date/Time November 30, 2024 4:51 pm [facility] Medical Records Department [address] [place] [address] Consultation - Cardiology 11/30/24 1642 MR#: [id number] Acct: [id number] Name: GERRY RICO Rep #:[id number] : [...] infarction. Subsequently a STEMI alert was called. 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 Marycarmen Rodriguez, DO~ Signed [facility] Work Phone: 1([phone]) 823-552807-29-2025 Consult note Author Cyndie Frye [facility] Note Date/Time November 28, 2024 12:2 8pm [facility] Medical Records Department [address] [place] [address] Counseling Note - Pharmacy 11/28/24 0920 MR#: [id number] Acct: [id number] Name: GERRY RICO Rep #:[id number] : 1945 79 From: Cyndie Frye PCP: Dr. Marycarmen Rodriguez, Status:ADM EDMUND Y Location: [place] [address] [place] Med Reconciliation Pharmacy Service has performed discharge [...] Signature (if applicable): Date CC: ~ Signed [facility] Work Phone: [phone]) [phone] Discharge summary Author Jose Hay [facility] Note Date/Time November 27, 2024 11:3 5am [facility] Medical Records Department [address] [place] [address] Instructions for Home/Discharge Instructions 11/27/24 1128 MR#: [id number] Acct: [id number] Name: GERRY RICO Rep #:[id number] : 1945 79 From: Jose Hay MD PCP: Dr. aMrycarmen Rodriguez, DO Status:REG SDC Discharge Instructions DC [...] Care Provider: Marycarmen Rodriguez Instructions Print Language: Bahraini Discharge Orders/Prescriptions Prescriptions: New furosemide 80 mg [...] CC: Dr. Marycarmen Rodriguez DO ~ Signed [facility] Work Phone: [phone]) [phone] Radiology Diagnostic study [facility]07-27-2025 Radiology Diagnostic study [facility]07-27-2025 Radiology Diagnostic study [facility] 11-26-2024 Radiology Diagnostic study [facility]07-27-2025 Radiology Diagnostic study [facility]07-27-2025 Radiology Diagnostic study [facility]07-27-2025 Discharge summary Author Isael Bernabe [facility] Note Date/Time November 26, 2024 9:41 pm [facility] Medical Records Department [address] [place] [address] Emergency Department Summary 11/26/24 MR#: [id number] Acct: [id number] Name: GERRY RICO Rep #:[id number] : [...] presents status post fall with chest heaviness. 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 He was given 1 Hester which he usually takes at home for pain. He was able to ambulate without difficulty. At this point in time, he is motivated for discharge. I do not feel that he requires admission at this time or observation. I feel he can be discharged to follow-upwith his cardiac catheterization tomorrow morning. Patient will continue his Hester at home and follow-up as previously directed. [...] 71.8 H Lymph % (Auto) 16.7 L [place] % (Auto) 9.5 Eos % (Auto) 1.3 [...] IMPRESSION: No acute intracranial process. Reading Location: [facility] Cervical Spine CT 11/26/24 18:03 IMPRESSION: No acute compression deformity, fracture, or subluxation. Moderate multilevel degenerative changes of the cervical spine. Cervical ACDF with interbody spacers spanning C4-C6 without hardware complications. Reading Location: [facility] Chest X-Ray 11/26/24 18:03 IMPRESSION: Negative for edema Reading Location: [facility] Knee X-Ray 11/26/24 18:03 IMPRESSION: Degenerative changes without fracture Reading Location: [facility] Hand X-Ray 11/26/24 18:07 IMPRESSION: Degenerative changes. No visible fracture. Reading Location: [facility] Knee X-Ray 11/26/24 18:07 IMPRESSION: Joint effusion Reading Location: [facility] Management Discussion w/another healthcare provider: Bookkeeping Machine Operator (Dr. Araujo) Discharge Plan Triage Chief Complaint: [...] with new or worsening symptoms. Print Language: Bahraini Disposition Disposition: Home, Self Care What to do if you have Problems For any increased pain, shortness of breath, bleeding, nausea or vomiting, chestpain, or any unexpected problems, contact your Primary Care Provider. Call [facility] ([phone]) or report to the closest Emergency Room. Call 911 if necessary. 11/26/242140 <Electronically signed by Isael Bernabe MD> Cosigner Signature (if applicable): CC: Dr. Marycarmen Rodriguez, ~ Signed [facility] Work Phone: 1([phone]) 119-645707-27-2025 Hospital Discharge instructionsAdditional Instructions Have your cardiac catheterization performed tomorrow as scheduled at 8:30 in the morning. Return with new or worsening symptoms.[facility] Work Phone: 1(902) 699-363507-24-2025 Radiology Diagnostic study [facility]07-21-2025 Radiology Diagnostic study [facility]05-21-2025 Evaluation note* Diagnosis Onset Date Resolution Status Admit Date COPD (chronic obstructive pulmonary disease) chronic September 20 10:13am Diastolic heart failure chronic 2024 10:13am Obesity chronic September 20, 2024 10:13am Obstructive sleep apnea chronic 2024 10:13am Shortness of breath acute October 25, 2024 7:54am Bilateral lower extremity edema 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 October 25, 2024 7:54am Chest pain chronic October 25 7:54am Chronic kidney disease, stage 3 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 October 25, 2024 7:54am Coronary artery [...] Obstructive sleep apnea chronic J 2024 10:00am [facility] Work Phone: 1([phone]) 211-361505-21-2025 Evaluation note* Diagnosis Onset Date Resolution Status Admit Date COPD (chronic obstructive pulmonary disease) chronic September 20 10:13am Diastolic heart failure chronic M ay 2024 10:13am Obesity chronic September 20, 2024 10:13am Obstructive sleep apnea chronic M ay 2024 10:13am Shortness of breath acute October 25, 2024 7:54am Bilateral lower extremity edema 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 October 25, 2024 7:54am Chest pain chronic October 25 7:54am Chronic kidney disease, stage 3 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 October 25, 2024 7:54am Coronary artery [...] 22, 2024 10:53am Bilateral lower extremity edema 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 November 22, 2024 10:53am Chest pain chronic November 22 10:53am Chronic kidney disease, stage 3 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 November 22, 2024 10:53am Essential hypertension [...] 2024 4:59pm Chronic kidney disease, stage 3 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 November 30, 2024 4:59pm Coronary artery disease chronic J shannon 2024 4:59pm Dyslipidemia chronic November 30, 2 025 4:59pm Essential hypertension chronic Ju ly 2024 4:59pm [facility] Work Phone: 1(225) 395-139405-21-2025 Evaluation note* Diagnosis Onset Date Resolution Status [...] Essential hypertension chronic Ju ly 2024 4:59pm [facility] Work Phone: 1(856) 802-902005-21-2025 Evaluation note* Diagnosis Onset Date Resolution Status [...] sleep apnea chronic A ugust 2024 8:29pm [facility] Work Phone: 1(382) 375-396505-21-2025 Evaluation note* Diagnosis Onset Date Resolution Status [...] 2024 2:01am History of acute inferior wall IN acute December 03, 2024 2:01am Hyponatremia acute [...] 2:01am Dyslipidemia inactive December 03, 2024 2:01am [place] [employer] Work Phone: 1(696) 285-645605-21-2025 Evaluation note* Diagnosis Onset Date Resolution Status [...] 2024 2:01am History of acute inferior wall IN acute December 03, 2024 2:01am Hyponatremia acute [...] of breath acute Augus t 2024 4:24pm [facility] Work Phone: 1(773) 701-670105-21-2025 Evaluation note* Diagnosis Onset Date Resolution Status Admit Date COPD (chronic obstructive pulmonary disease) chronic September 20 10:13am Diastolic heart failure chronic [facility] 2024 10:13am Obesity chronic September 20, 2024 10:13am Obstructive sleep apnea chronic [facility] 2024 10:13am Shortness of breath acute October 25, 2024 7:54am Bilateral lower extremity edema chronic October 25, 2024 7:54am Hyperlipidemia chronic October 25, 2024 7:54am Obesity chronic October 25 7:54am Type 2 diabetes mellitus without complications chronic October 25, 2024 7:54am Chest pain resolved October 25 7:54am Coronary artery disease inactive formerly [facility] 2024 7:54am Essential hypertension inactive [facility] 2024 7:54am Chronic kidney disease, stag [...] 2024 2:01am History of acute inferior wall IN acute December 03, 2024 2:01am Hyponatremia acute [...] of breath acute Augus t 2024 4:24pm [facility] Work Phone: 1(784) 468-196705-21-2025 Evaluation note* Diagnosis Onset Date Resolution Status [...] 2024 2:01am History of acute inferior wall IN inactive December 03, 2024 2:01am DEAN (dyspnea on exertion) resolved December 07, 2024 4:24pm Shortness of breath resolved t 2024 4:24pm Chest pain inactive December 07 4:24pm Recent ST elevation myocardial infarction (STEMI) inactive Au atj 2024 4:24pm Presence of stent in coronar y artery Aug, 2022 acute December 12 10:14am Bilateral lower extremity edema chronic December 12 10:14am Hyperlipidemia chronic December 10:14am Obesity chronic December 12, 10:14am Type 2 diabetes mellitus without complications chronic December 10:14am Chest pain resolved December 12 10:14am Shortness of breath resolved Augus t 2024 10:14am Essential hypertension inactive Au [facility] 2024 10:14am Chronic kidney disease, stag e 3 deleted December 12 10:14am [place] [employer] Work Phone: 1(459) 748-399905-21-2025 Evaluation note* Diagnosis Onset Date Resolution Status Admit Date COPD (chronic obstructive pulmonary disease) chronic September 20 10:13am Diastolic heart failure chronic [facility] 2024 10:13am Obesity chronic September 20, 2024 [...] 25 7:54am Coronary artery disease inactive J formerly [facility] 2024 7:54am Chronic kidney disease, stage 3 [...] 2024 2:01am History of acute inferior wall IN inactive December 03, 2024 2:01am Shortness of [...] 2024 2:35pm Diastolic heart failure chronic A [facility] 2024 2:35pm Essential hypertension chronic [facility] 2024 2:35pm History of percutaneous transluminal coronary angioplasty August 18, 2018 chronic December 15 2:35pm Obstructive sleep apnea chronic A [facility] 2024 2:35pm Type 2 diabetes mellitus without complications chronic December 2:35pm [facility] Work Phone: 1(187) 520-211105-21-2025 Evaluation note* Diagnosis Onset Date Resolution Status Admit Date COPD (chronic obstructive pulmonary disease) inactive September 20 10:13am Diastolic heart failure inactive [facility] 2024 10:13am Obesity inactive September 20, 2024 10:13am Obstructive sleep apnea inactive [facility] 2024 10:13am Chest pain resolved October 25 [...] October 31 10:00am Diastolic heart failure inactive [facility] 2024 10:00am Obesity inactive October 31, 2024 10:00am Obstructive sleep apnea inactive [facility] 2024 10:00am Chest pain resolved November 22 10:53am Bilateral lower extremity edema inactive November 22, 2024 10:53am Essential hypertension inactive [facility] 2024 10:53am Hyperlipidemia inactive November 22, 2024 [...] inactive October 4:58pm Chronic kidney disease inactive [facility] 2024 4:58pm Coronary artery disease inactive J [facility] 2024 4:58pm Diabetes mellitus inactive November 302024 4:58pm Dyslipidemia inactive November 30 2 025 4:58pm Essential hypertension inactive [facility] 2024 4:58pm Chronic kidney disease, stage 3 [...] 2024 2:01am Chronic kidney disease inactive [facility] 2024 2:01am CKD (chronic kidney disease) stage 4, GFR 15-29 ml/min inactive December 03, 2024 2:01am Coronary artery disease inactive A [facility] 2024 2:01am Diabetes mellitus inactive December 03, 2024 2:01am Dyslipidemia inactive December 03, 2024 2:01am History of acute inferior wall IN inactive December 03, 2024 2:01am Hyperlipidemia inactive December 2:01am Obesity inactive December 03 2:01am Obesity (BMI 30-39.9) inactive Dec 2024 2:01am Obstructive sleep apnea inactive [facility] 2024 2:01am DEAN (dyspnea on exertion) resolved December 07, 2024 4:24pm Chest pain inactive December 07 4:24pm Recent ST elevation myocardial infarction (STEMI) inactive December 07, 2024 4:24pm Shortness of breath inactive 2024 4:24pm Chest pain resolved December 12, 025 10:14am Bilateral lower extremity edema inactive December 12 10:14am Essential hypertension inactive [facility] 2024 10:14am Hyperlipidemia inactive December 10:14am [...] 2024 2:35pm Diastolic heart failure inactive A [facility] 2024 2:35pm Essential hypertension inactive [facility] 2024 2:35pm History of percutaneous transluminal [...] December 1:59am Obesity inactive December 24, 1:59am [place] [employer] Work Phone: 1(521) 220-645705-21-2025 Evaluation note* Diagnosis Onset Date Resolution Status Admit Date COPD (chronic obstructive pulmonary disease) inactive September 20 10:13am Diastolic heart failure inactive [facility] 2024 10:13am Obesity inactive September 20, 2024 10:13am Obstructive sleep apnea inactive [facility] 2024 10:13am Chest pain resolved October 25 7:54am Bilateral lower extremity edema inactive October 25, 2024 7:54am Coronary artery disease inactive [facility] 2024 7:54am Essential hypertension inactive [facility] 2024 7:54am Hyperlipidemia inactive October 25, [...] October 31 10:00am Diastolic heart failure inactive [facility] 2024 10:00am Obesity inactive October 31, 2024 10:00am Obstructive sleep apnea inactive J [facility] 2024 10:00am Chest pain resolved November 22 [...] 30, 2 025 4:58pm Essential hypertension inactive [facility] 2024 4:58pm Chronic kidney disease, stage 3 [...] 2024 2:01am History of acute inferior wall IN inactive December 03, 2024 2:01am Hyperlipidemia inactive December 2:01am Obesity inactive December 03 2:01am Obesity (BMI 30-39.9) inactive Dec 2:01am Obstructive sleep apnea inactive A [facility] 2024 2:01am DEAN (dyspnea on exertion) resolved December 07, 2024 4:24pm Chest pain inactive December 07 4:24pm Recent ST elevation myocardial infarction (STEMI) inactive December 07, 2024 4:24pm Shortness of breath inactive [facility] 2024 4:24pm Chest pain resolved December 12, 025 10:14am Bilateral lower extremity edema inactive December 12 10:14am Essential hypertension inactive [facility] 2024 10:14am Hyperlipidemia inactive December 10:14am Obesity inactive December 12, 025 10:14am Presence of stent in coronary artery Aug, 2022 inactive December 12 10:14am Shortness of breath inactive [facility] 2024 10:14am Type 2 diabetes mellitus without complications inactive December 10:14am Chronic kidney disease, stage 3 deleted December 12 10:14am Angina pectoris inactive December 152024 2:35pm Central sleep apnea inactive [facility] 2024 2:35pm Chest pain inactive December 15, 2 025 2:35pm CKD (chronic kidney disease) stage 4, GFR 15-29 ml/min inactive December 15, 2024 2:35pm Diastolic heart failure inactive A [facility] 2024 2:35pm Essential hypertension inactive [facility] 2024 2:35pm History of percutaneous transluminal coronary angioplasty August 18, 2018 inactive December 15 2:35pm Obstructive sleep apnea inactive A [facility] 2024 2:35pm Pericardial effusion inactive [facility] 2024 2:35pm Type 2 diabetes mellitus without complications inactive December 2:35pm [facility] disease [facility] 1:59am Diverticulosis acute December 1:59am GI (gastrointestinal bleed) acute December 24, 2024 1:59am BRBPR (bright red blood per rectum) inactive December 24 1:59am CHF (congestive heart failure) inactive December 24 1:59am COPD (chronic obstructive pulmonary disease) inactive December 24, 2024 1:59am Hyperlipidemia inactive December 1:59am Obesity inactive December 24, 2 025 1:59am [facility] Work Phone: 1(469) 249-595003-18-2025 Procedure notey [facility] Pulmonary Services/Neurology [address] [place] [address] MR#: [id number] Acct: [id number] Name: GERRY RICO Rep #:[id number] : 1945 78 From: Zen East DO Referring Dr: Marni Horn 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 Status: REG CLI Location: PSN Date: Sex: M C PSN 6 Minute Walk Test 6 Minute Walk Test 6 Minute Walk Test: 6 Minute Walk Test PSN:6-Minute Walk Test Start: 07/18/24 06:38 Freq: Status: Active Protocol: RESP.6MINW Document 07/18/24 06:00 [facility] (Rec: 07/18/24 06:47 [facility] [id number]) 6 Minute Walk Test Date Performed 07/18/24 Time Performed 06:00 Height 5 ft 9 in Weight: 230 lb Weight in Pounds 230.[address]: Marni Horn [employer]ARMWORKER Assistive device Cane used: Pre-test Oxygen Delivery [...] Date Dictated: 07/18/24 1032 Date Transcribed: 07/18/241031 Forest Management Teacher: Dr. 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 October 25, 2024 7:54am Coronary artery disease chronic J 2024 7:54am Essential hypertension chronic Ju 2024 7:54am Hyperlipidemia chronic October 25, 2024 7:54am Obesity chronic October 25 7:54am Type 2 diabetes mellitus wit hout complications chronic October 25, 2024 7:54am Chest pain inactive October 25 7:54am [place] [employer] Work Phone: 1([phone]) 250-402503-03-2025 Evaluation note* Diagnosis Onset Date Resolution Status [...] 25, 2024 7:54am Bilateral lower extremity edema 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 October 25, 2024 7:54am Chest pain chronic October 25 7:54am Chronic kidney disease, stage 3 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 October 25, 2024 7:54am Coronary artery disease chronic J une 2024 7:54am Essential hypertension chronic Ju ne 2024 7:54am Hyperlipidemia chronic October 25, 2024 7:54am Obesity chronic October 25 7:54am Type 2 diabetes mellitus wit hout complications chronic October 25, 2024 7:54am [facility] Work Phone: 1(312) 498-408103-03-2025 Evaluation note* Diagnosis Onset Date Resolution Status [...] 25, 2024 7:54am Bilateral lower extremity edema 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 October 25, 2024 7:54am Chest pain chronic October 25 7:54am Chronic kidney disease, stage 3 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 October 25, 2024 7:54am Coronary artery [...] sleep apnea chronic J shannon 2024 10:00am [facility] Work Phone: 1(961) 401-484103-03-2025 Evaluation note* Diagnosis Onset Date Resolution Status [...] 25, 2024 7:54am Bilateral lower extremity edema 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 October 25, 2024 7:54am Chest pain chronic October 25 7:54am Chronic kidney disease, stage 3 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 October 25, 2024 7:54am Coronary artery [...] Obstructive sleep apnea chronic J 2024 10:00am [facility] Work Phone: 1(278) 436-524712-16-2024 Evaluation note* Diagnosis Onset Date Resolution Status Admit Date DEAN (dyspnea on exertion) acute April 17, 2024 3:51pm Bilateral lower extremity edema 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 April 17, 2024 3:51pm Chronic kidney disease, stage 3 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 April 17, 2024 3:51pm Coronary artery [...] sleep apnea chronic M arch 2024 1:10pm [facility] Work Phone: 1(525) 328-490411-18-2024 Evaluation note* Diagnosis Onset Date Resolution Status Admit Date Bilateral lower extremity edema 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 March 20, 2024 10:31am Chronic kidney disease, stage 3 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 March 20, 2024 10:31am Coronary artery disease chronic N ovember 2023 10:31am Essential hypertension chronic No vember 2023 10:31am Hyperlipidemia chronic March 032023 10:31am Obesity chronic March 20, 2024 10:31am Type 2 diabetes mellitus without complications chronic March 032023 10:31am DEAN (dyspnea on exertion) acute April 17, 2024 3:51pm Bilateral lower extremity edema 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 Hay [facility] September 01, 2022 9:55am Note Date/Time September 01, 2022 8:37am [facility] Medical Records Department [address] [place] [address] Instructions for Home/Discharge Instructions 09/01/22 0835 MR#: [id number] Acct: [id number] Name: GERRY RICO Rep #:[id number] : [...] CC: Dr. Marycarmen Rodriguez DO ~ Signed [facility] Work Phone: 1(814) 560-205808-26-2021 Miscellaneous Notes* Assessment & Plan Note - [...] with any necessary intervention. documented in this [id number] History of Present illness Narrative* Eladio Ingram [...] patient is not nervous/anxious. documented in this [id number] Miscellaneous Notes* Assessment & Plan Note - Sagar Acuña CNP - 10/09/2020 11:44 AM EDT Associated Problem(s): Coronary artery disease involving burns paiute coronary artery of burns paiute heart without angina pectoris Multiple previous cardiac catheterizations with intervention. Most recent cardiac caths were performed in 2018, August 03 at [place], and August 18 at [facility] in [place]. 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 The notes from the cath at [facility] indicate that they were able to [...] intolerance, and chest pressure. documented in this [id number] History of Present illness Narrative* Sagar Acuña CNP - 10/09/2020 11:19 AM EDT [facility] [address] [id number] Assessment & Plan: Hypertension Blood pressure mildly [...] without CPAP use. 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 Most recent cardiac caths were performed in 2018, August 03 at [place], and August 18 at [facility] in [place]. 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 The notes from the cath at [facility] indicate that they were able to [...] re-establish care. He has been following at [place] and [facility] for his cardiology care over the past 4 years. 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 Gerry has long-standing coronary artery disease and his history is primarily obtained through records from [facility]. Gerry is uncertain of many [...] disease (HCC) Sleep apnea Stroke ([facility]) Testicle swelling Past Surgical History: Procedure Laterality Date CARDIAC CATHETERIZATION N/A 01/04/2015 Left Heart Cath,Stent, EF 60%; Eladio Ingram MD; [facility] [employer] CARDIAC CATHETERIZATION N/A 01/28/2015 Left Heart Cath, EF 60%; Eladio Ingram MD; [facility] CARDIAC CATHETERIZATION N/A 06/18/2015 Left Heart Cath, Right Upper Extremity Angiogram, EF 60%; Eladio Ingram MD; [facility] [employer] CARDIAC CATHETERIZATION N/A 03/17/2016 Procedure: Left and Right Heart Cath Poss Stent; Surgeon: Eladio Ignram MD; Location: [facility]; Service: CARDIAC CATHETERIZATION 03/22/2014 EF 60% CARDIAC CATHETERIZATION 06/29/2013 EF 60% CARDIAC CATHETERIZATION 09/08/2012 EF 55% CARDIAC CATHETERIZATION 03/22/2014 EF 60% CARDIAC CATHETERIZATION Right 10/15/2016 Procedure: Left Heart Cath Possible PTCA/Stent; Surgeon: Merritt Arthur MD; Location: [facility] CATHLAB; Service: CHOLECYSTECTOMY CORONARY ANGIOPLASTY [...] ectopy, no acute changes. 50 minutes spent [id number] with patient Follow Up Ordered: Return for [...] patient is not nervous/anxious. documented in this [id number] NotePatient Outreach (COVAMN) GERRY RICO ([id number]) 1945 M Date Time Provider Department 06/25/20 PETRONA TELLES During your visit today, we recorded the following information about you: Allergies As of Date: 06/25/2020 (No Known Allergies) Date Reviewed: 08/19/2018 Reviewed by: Moise (Marcin) MARCIN Mcgraw - Fully Assessed Order(s):SARS-COVID VACCINE 1ST DOSE APPT [42251OHW] Order #: [id number] FUTURE Prescriptions as of 06/25/2020 Sig: CLOPIDOGREL [...] (HCC) [N17.9] 08/15/2018 Coronary artery disease involving burns paiute smith*08/15/2018 Stented coronary artery [Z95.5] 08/15/2018 Letter Text Encounter Status:Closed by LANDON PRODUSER on 06/28/20[facility] Consult note Author Jose Hay [facility] Note Date/Time November 30, 2024 4:51 pm [facility] Medical Records Department [address] [place] [id number] Consultation - Cardiology 11/30/24 1642 MR#: [id number] Acct: [id number] Name: GERRY RICO Rep #:[id number] : [...] infarction. Subsequently a STEMI alert was called. [facility] Medical History (Updated 11/30/24 @ 16:48 by [...] kidney disease, stage 3 Atherosclerotic heart disease burns paiute coronary artery w/angina pectoris Type 2 diabetes mellitus without complications Hyperlipidemia Obesity Home Medications ?Medication ?Instructions ?Recorded ?Last Taken ?Type aspirin 81 mg tablet,delayed 81 mg PO DAILY@[facility] 01/21/17 10/11/23 History release maintenance mirtazapine [...] 80.9 H, Lymph % (Auto) 10.1 L, [place] % (Auto) 7.7, Eos % (Auto) 0.4, [...] 80.9 H, Lymph % (Auto) 10.1 L, [place] % (Auto) 7.7, Eos % (Auto) 0.4, [...] Hay MD; Dr. Marycarmen Rodriguez DO~ Signed [facility] Work Phone: Discharge summary Author Nickie Danielson [facility] Note Date/Time December 02, 2024 2:2 7pm [facility] Medical Records Department [address] [place] [address] Discharge Summary 12/02/24 1336 MR#: [id number] Acct: [id number] Name: GERRY RICO Rep #:[id number] : 1945 79 From: Nickie Danielson DO PCP: Dr. Marycarmen Rodriguez DO Status:ADM IN Location: [place] [address] Providers Date of Admission: 11/30/24 Date of [...] [facility] a STEMI [...] inferior wall. He was taken emergency to [facility] and cardiac catheterization revealed subacute stent thrombosis [...] 78.9 H, Lymph % (Auto) 7.6 L, [place] % (Auto) 12.0 H, Eos % (Auto) [...] abnormality. 2. Age-related senescent changes. Reading Location: [facility] D/C Instructions Discharge Activity: Return to [...] Jeffrey at discharge?: Yes Done w/ Acute IN measure.: Yes Documented LVEF (%): 50 Discharge Plan Admission Admit Date/Time: 11/30/24 16:59 Primary Reason for Your Visit: Chest pain Attending Provider: Nickie Daneilson Primary Care Provider: Marycarmen Rodriguez Consulting Providers: [...] Self Care Charges/Coding Visit Charges Inpatient E&M: 64200 Disch Hosp >30min 12/02/24 1427 <Electronically signed by Nickie Jagjit DO> Cosigner Signature (if applicable): CC: Dr. Jose Hay MD; Dr. Nickie Danielson DO; Dr. Marycarmen Rodriguez DO~ Signed [facility] Work Phone: Discharge summary Author Alex Sanon [facility] Note Date/Time December 08, 2024 4:1 2pm [facility] Medical Records Department [address] [place] [address] Transfer to [facility] Care MR#: [id number] Acct: [id number] Name: GERRY RICO Rep #:[id number] : 1945 79 From: Alex Sanon MD PCP: Dr. Marycarmen Rodriguez DO Status:ADM EDMUND Certification of patient admission REQUIRED AT TIME OF ADMISSION. 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 [...] his ECF 2. Recent acute inferior wall IN ? This was complicated by PLV dissection [...] ? Patient was [facility] to a jail facility plan is for patient to be [...] Uncertain Cause Additional Instructions / Restrictions: The correctional medicine physician wanted to make sure you are taking [...] in before D/C Order can be placed): Shelter Facility 12/08/24 4540 <Electronically signed by Alex Sanon MD> Cosigner Signature (if applicable): CC: Dr. Shaan Santos DO; Dr. Marycarmen Rodriguez DO ~ [facility] Work Phone: Discharge summary Author Marycarmen Marlow [facility] Note Date/Time December 17, 2024 2: 06pm [facility] Medical Records Department [address] [place] [address] Transfer to [facility] Care MR#: [id number] Acct: [id number] Name: GERRY RICO Rep #:[id number] : 1945 79 From: Marycarmen Marlow DO PCP: Dr. Marycarmen Rodriguez DO Status:ADM IN Certification of patient admission REQUIRED AT TIME OF ADMISSION. 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 Marycarmen Rodriguez DO; Dr. Ramonita Herron MD; Dr. Sunil Faye MD ~ [facility] Work Phone: Evaluation note* Diagnosis Shortness of breath- [facility] DEAN (dyspnea on exertion)- Primary Other dyspnea and respiratory abnormality [facility] DEAN (dyspnea on exertion) Other dyspnea and respiratory abnormality Essential hypertension Unspecified essential hypertension Type 2 diabetes mellitus without complication, without long-term current use of insulin ([facility]) MATTHEW (obstructive sleep apnea) Obstructive sleep apnea (adult) (pediatric) Coronary artery disease involving [place] coronary artery of [place] heart without angina pectoris [facility] Shortness of breath [facility] Diagnosis Essential hypertension- Primary Unspecified essential hypertension 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, unspecified whether [place] or transplanted heart (HCC) Mixed hyper[facility] Chest pain, unspecified type- [facility] Diagnosis 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)- Primary [facility] Diagnosis Onset Date Resolution Status Dizziness acute Atherosclerotic heart diseas e [place] coronary artery w/angina pectoris chronic CHF (congestive heart failure) chronic Essential hypertension chron ic History of coronary artery stent placement August 13, 2017 chronic Hyperlipidemia [facility] Work Phone: Evaluation note* Diagnosis Onset Date Resolution Status Dizziness acute Atherosclerotic heart diseas e [place] coronary artery w/angina pectoris chronic CHF (congestive heart failure) chronic Essential hypertension chron ic History of coronary artery stent placement August 13, 2017 chronic Hyperlipidemia chronic Dizziness acute DEAN (dyspnea on exertion) [place] Palpitations acute CAD (coronary artery disease) chronic CHF (congestive heart failure) chronic Essential hypertension chron ic Hyperlipidemia [facility] Work Phone: evaluation note* Diagnosis Onset Date Resolution Status Dizziness acute Atherosclerotic heart diseas e [place] coronary artery w/angina pectoris chronic CHF (congestive heart failure) chronic Essential hypertension chron ic History of coronary artery stent placement August 13, 2017 chronic Hyperlipidemia chronic Dizziness acute DEAN (dyspnea on exertion) [place] Palpitations acute CAD (coronary artery disease) chronic CHF (congestive heart failure) chronic Essential hypertension chron ic Hyperlipidemia chronic DEAN (dyspnea on exertion) [place] CAD (coronary artery disease) chronic CHF (congestive heart failure) chronic Essential hypertension chron ic Hyperlipidemia [facility] Work Phone: Evaluation note* Diagnosis Onset Date Resolution Status Dizziness acute DEAN (dyspnea on exertion) [place] Palpitations acute CAD (coronary artery disease) chronic CHF (congestive heart failure) chronic Essential hypertension chron ic Hyperlipidemia chronic EDAN (dyspnea on exertion) [place] CAD (coronary artery disease) chronic CHF (congestive heart failure) chronic Essential hypertension chron ic Hyperlipidemia [facility] Work Phone: Evaluation note* Diagnosis Onset Date Resolution Status Abnormal PFT acute 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.9) 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 Obstructive sleep apnea 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 COVID-19 acute DEAN (dyspnea on exertion) [place] Atherosclerotic heart diseas e [place] coronary artery w/angina pectoris chronic CHF (congestive heart failure) chronic Essential hypertension chron ic History of coronary artery stent placement August 13, 2017 chronic Hyperlipidemia chronic Abnormal PFT acute COVID-19 acute 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.9) 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 Obstructive sleep apnea 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 [facility] Work Phone: Evaluation note* Diagnosis Onset Date Resolution Status COVID-19 acute DEAN (dyspnea on exertion) [place] Atherosclerotic heart diseas e [place] coronary artery w/angina pectoris chronic CHF (congestive heart failure) chronic Essential hypertension chron ic History of coronary artery stent placement August 13, 2017 chronic Hyperlipidemia chronic Abnormal PFT acute COVID-19 acute 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.9) 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 Obstructive sleep apnea 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 [facility] Work Phone: Evaluation note* Diagnosis Onset Date Resolution Status Angina pectoris chronic Chronic kidney disease chron ic Coronary artery disease 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 Diabetes mellitus chronic Dyslipidemia chronic Essential hypertension chron ic Obesity chronic [facility] Work Phone: Evaluation note* Diagnosis Onset Date Resolution Status Angina pectoris chronic Chronic kidney disease chron ic Coronary artery disease 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 Diabetes mellitus chronic Dyslipidemia chronic Essential hypertension chron ic Obesity chronic Left-sided weakness acute Chest pain resolved Fatigue acute Syncope acute Coronary artery disease 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 Dyslipidemia chronic Essential hypertension chron ic [facility] Work Phone: Evaluation note* Diagnosis Onset Date Resolution Status Left-sided weakness acute Chest pain resolved Fatigue acute Syncope acute 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 artery disease 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 Dyslipidemia chronic Essential hypertension chron ic Angina pectoris chronic Bilateral lower extremity edema chronic Chronic kidney disease, stage 3 chronic Coronary artery disease 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 Essential hypertension chron ic Hyperlipidemia chronic Type 2 diabetes mellitus without complications [facility] Work Phone: Evaluation noteNo assessment information available [facility] Work Phone: History and physical note Author Shaan Santos [facility] Note Date/Time December 07, 2024 4:4 8pm [facility] Medical Records Department [facility] [address] [place] [address] H&P Exam - Hospitalist 12/07/24 1633 MR#: [id number] Acct: [id number] Name: GERRY RICO Rep #:[id number] : 1945 79 From: Shaan Santos DO PCP: Dr. Marycarmen Rodriguez, DO Status:ADM EDMUND Location: [place] [address] HPI - General General Date of Service: [...] currently on room air and breathing comfortably. [facility] Medical History Anxiety Depression Diabetes Kidney disease [...] attack) Obstructive sleep apnea Atherosclerotic heart disease [place] coronary artery w/angina pectoris Type 2 diabetes [...] household members: spouse and none housing: senior living Smoking Status: Former smoker quit date: 05/03/98 [...] 79.0 H, Lymph % (Auto) 7.9 L, [place] % (Auto) 11.5 H, Eos % (Auto) [...] IMPRESSION: No acute cardiopulmonary process Reading Location: [id number] Assessment & Plan Assessment/Plan (1) Shortness of [...] at bedside. Charges/Coding Visit Charges Inpatient E&M: 91973 Init Hosp 12/07/24 1648 <Electronically signed by Shaan Santos DO> Cosigner Signature (if applicable): CC: Dr. Shaan Santos, ; Dr. Marycarmen Rodriguez DO~ Signed [facility] Work Phone: Hospital course Narrative No data available for this section [facility] Hospital Discharge instructionsAmbulatory Orders* Phase II, Outpatient Cardiac Rehab Location: None Selected [facility] Work Phone: Hospital Discharge instructionsAdditional Instructions The correctional medicine physician wanted to make sure you are taking isosorbide, spironolactone, Lasix and Jardiance. Follow-up with the cardiology office.[facility] Work Phone: Progress note Author Dr. Hay [facility] September 01, 2022 9:53am Note Date/Time September 01, 2022 9:51am [facility] Medical Records Department [address] [place] [address] Progress Note 09/01/22 0950 MR#: [id number] Acct: [id number] Name: RADHAGERRY Rep #:[id number] : 1945 77 From: Jose Hay MD PCP: Dr. Marycarmen Rodriguez, DO Status:ADM EDMUND Location: [place] [address] Progress Note Reports complete resolution of angina. Denies any complaints today. Right groin stable. No hematoma or bruit. Right radial pulse 2+. Mildly decreased platelet count noted. Repeat CBC in 2 days. Also repeat complete metabolic panel in 2 days. Discharge home. Follow-up as outpatient. 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 Advance Directives and Living Will [...] Documents on File Type Date Recorded 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 Advance Directives and Livin g Will 10/04/2020 12:00 AM Documents on File Type Date Recorded 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 Advance Directives and Living Will [...] Documents on File Type Date Recorded 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 Advance Directives and Livin g Will 10/15/2020 12:46 PM Documents on File Type Date Recorded 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 Advance Directives and Livin g Will 10/15/2020 12:46 PM Documents on File Type Date Recorded 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 Advance Directives and Livin g [...] Will Yes June 10 4:44pm Power of Supervisor Finishing Room Yes June 10, 2021 4:44pm Advance Directive Response Recorded Date/ Time Name of Medical Power of Supervisor Finishing Room Jennie- November 16, 2021 1:06pm Advance Directives No August 13 018 7:02am Living Will Yes November 16, 2021 1:06pm Power of Supervisor Finishing Room Yes November 16 1:06pm Advance Directive Response Recorded Date/ Time Advance Directives No August 13, 018 6:02am Living Will Yes Gloria 17th, 2022 12:06pm Power of Supervisor Finishing Room Yes November 16 12:06pm Advance Directive Response Recorded Date/ Time Advance Directives No August 13, 2 018 7:02am Living Will Yes November 16, 2021 1:06pm Power of Supervisor Finishing Room Yes November 16 1:06pm Advance Directive Response Recorded Date/ Time Advance Directives on File Yes August 312022 7:47am Name of Medical Power of Supervisor Finishing Room Ashok escalera August 31, 2022 7:47am Advance Directives Yes August 31, 2022 7:47am Living Will Yes August 31, 2022 7: 47am Power of Supervisor Finishing Room Yes August 31, 2022 7:47am Advance Directive Response Recorded Date/ Time Advance Directives on File Yes August 312022 7:47am Name of Medical Power of Supervisor Finishing Room Ashok escalera August 31, 2022 7:47am Advance Directives Yes August 31, 2022 7:47am Living Will No September 18, 2022 1 2:11am Power of Supervisor Finishing Room No September 18, 2022 12:11am Advance Directive Response Recorded Date/ Time Advance Directives on File Yes August 312022 7:47am Name of Medical Power of Supervisor Finishing Room Ashok escalera August 31, 2022 7:47am Advance Directives on File No Augus t 2022 7:51am Name of Medical Power of Supervisor Finishing Room ASHOK RICO December 21, 2022 7:51am Advance Directives Yes December 21, 2022 7:51am Living Will Yes December 21 7:51am Power of Supervisor Finishing Room Yes December 21 023 7:51am Advance Directive Response Recorded Date/ Time Advance Directives on File No Augus t 2022 7:51am Name of Medical Power of Supervisor Finishing Room ASHOK RICO December 21, 2022 7:51am Advance Directives Yes December 21, 2022 7:51am Living Will Yes December 21 7:51am Power of Supervisor Finishing Room Yes December 21 023 7:51am Advance Directive Response Recorded Date/ Time Advance Directives Yes December 21, 2022 6:51am Living Will Yes December 21 6:51am Power of Supervisor Finishing Room Yes December 21 023 6:51am Advance Directive Response Recorded Date/ Time Living Will No October 12, 2023 6:54pm Power of Supervisor Finishing Room No October 11 6:54pm Advance Directives Yes December 21, 2022 7:51am Advance Directive Response Recorded Date/ Time Advance Directives Yes December 21, 2022 7:51am Advance Directive Response Recorded Date/ Time Do you have a Healthcare Power of Supervisor Finishing Room? Yes November 26, 2024 5:44pm Advance Directives Yes December 21, 2022 7:51am Advance Directive Response Recorded Date/ Time Advance Directives on File Yes November 27, 2024 8:44am Living Will Yes November 27, 2024 8:44am Do you have a Healthcare Pow er of Supervisor Finishing Room? Yes November 27, 2024 8:44am Name of Medical Power of Supervisor Finishing Room Jennie Popeag er- spouse November 27, 2024 8:44am Advance Directives Yes November 27 8:44am Do you have a Healthcare Pow er of Supervisor Finishing Room? Yes November 26, 2024 5:44pm Advance Directive Response Recorded Date/ Time Advance Directives on File Yes November 27, 2024 8:44am Living Will Yes November 27, 2024 8:44am Do you have a Healthcare Pow er of Supervisor Finishing Room? Yes November 27, 2024 8:44am Name of Medical Power of Supervisor Finishing Room Jennie Popeag er- spouse November 27, 2024 8:44am Advance Directives Yes November 27 8:44am Do you have a Healthcare Pow er of Supervisor Finishing Room? Yes November 26, 2024 5:44pm Do you have a Healthcare Pow er of Supervisor Finishing Room? Yes November 30, 2024 5:22pm Advance Directive Response Recorded Date/ Time Advance Directives on File Yes November 27, 2024 8:44am Living Will Yes November 27, 2024 8:44am Do you have a Healthcare Pow er of Supervisor Finishing Room? Yes November 27, 2024 8:44am Name of Medical Power of Supervisor Finishing Room Jennie Popeag er- spouse November 27, 2024 8:44am Advance Directives Yes November 27 8:44am Do you have a Healthcare Pow er of Supervisor Finishing Room? Yes November 26, 2024 5:44pm Do you have a Healthcare Pow er of Supervisor Finishing Room? Yes November 30, 2024 5:22pm Do you have a Healthcare Pow er of Supervisor Finishing Room? Yes December 02, 2024 8:23pm Advance Directive Response Recorded Date/ Time Advance Directives on File Yes November 27, 2024 8:44am Living Will Yes November 27, 2024 8:44am Do you have a Healthcare Pow er of Supervisor Finishing Room? Yes November 27, 2024 8:44am Name of Medical Power of Supervisor Finishing Room Jennie Agarwal er- spouse November 27, 2024 8:44am Advance Directives Yes November 27 8:44am Do you have a Healthcare Pow er of Supervisor Finishing Room? Yes November 26, 2024 5:44pm Do you have a Healthcare Pow er of Supervisor Finishing Room? Yes November 30, 2024 5:22pm Do you have a Healthcare Pow er of Supervisor Finishing Room? Yes December 02, 2024 9:54pm Advance Directive Response Recorded Date/ Time Advance Directives on File Yes November 27, 2024 8:44am Living Will Yes November 27, 2024 8:44am Do you have a Healthcare Pow er of Supervisor Finishing Room? Yes November 27, 2024 8:44am Name of Medical Power of Supervisor Finishing Room Jennie Agarwal er- spouse November 27, 2024 8:44am Advance Directives Yes November 27 8:44am Do you have a Healthcare Pow er of Supervisor Finishing Room? Yes November 26, 2024 5:44pm Do you have a Healthcare Pow er of Supervisor Finishing Room? Yes November 30, 2024 5:22pm Do you have a Healthcare Pow er of Supervisor Finishing Room? Yes December 02, 2024 9:54pm Do you have a Healthcare Pow er of Supervisor Finishing Room? Yes December 07, 2024 11:09am Advance Directive Response Recorded Date/ Time Advance Directives on File Yes November 27, 2024 8:44am Living Will Yes November 27, 2024 8:44am Do you have a Healthcare Pow er of Supervisor Finishing Room? Yes November 27, 2024 8:44am Name of Medical Power of Supervisor Finishing Room Jennie Agarwal er- spouse November 27, 2024 8:44am Advance Directives Yes November 27 8:44am Do you have a Healthcare Pow er of Supervisor Finishing Room? Yes November 26, 2024 5:44pm Do you have a Healthcare Pow er of Supervisor Finishing Room? Yes November 30, 2024 5:22pm Do you have a Healthcare Pow er of Supervisor Finishing Room? Yes December 02, 2024 9:54pm Do you have a Healthcare Pow er of Supervisor Finishing Room? Yes December 07, 2024 5:33pm Advance Directive Response Recorded Date/ Time Advance Directives on File Yes November 27, 2024 8:44am Living Will Yes November 27, 2024 8:44am Do you have a Healthcare Pow er of Supervisor Finishing Room? Yes November 27, 2024 8:44am Name of Medical Power of Supervisor Finishing Room Jennie Agarwal er- spouse November 27, 2024 8:44am Advance Directives Yes November 27 8:44am Do you have a Healthcare Pow er of Supervisor Finishing Room? Yes December 15, 2024 3:01pm Do you have a Healthcare Pow er of Supervisor Finishing Room? Yes November 26, 2024 5:44pm Do you have a Healthcare Pow er of Supervisor Finishing Room? Yes November 30, 2024 5:22pm Do you have a Healthcare Pow er of Supervisor Finishing Room? Yes December 02, 2024 9:54pm Do you have a Healthcare Pow er of Supervisor Finishing Room? Yes December 07, 2024 5:33pm Advance Directive Response Recorded Date/ Time Advance Directives on File Yes November 27, 2024 8:44am Living Will Yes November 27, 2024 8:44am Do you have a Healthcare Pow er of Supervisor Finishing Room? Yes November 27, 2024 8:44am Name of Medical Power of Supervisor Finishing Room Jennie Agarwal er- spouse November 27, 2024 8:44am Advance Directives Yes November 27 8:44am Do you have a Healthcare Pow er of Supervisor Finishing Room? Yes December 15, 2024 3:01pm Do you have a Healthcare Pow er of Supervisor Finishing Room? Yes December 20, 2024 11:46am Do you have a Healthcare Pow er of Supervisor Finishing Room? Yes November 26, 2024 5:44pm Do you have a Healthcare Pow er of Supervisor Finishing Room? Yes November 30, 2024 5:22pm Do you have a Healthcare Pow er of Supervisor Finishing Room? Yes December 02, 2024 9:54pm Do you have a Healthcare Pow er of Supervisor Finishing Room? Yes December 07, 2024 5:33pm Do you have a Healthcare Pow er of Supervisor Finishing Room? Yes December 24, 2024 2:54am Advance Directive Response Recorded Date/ Time Advance Directives on File Yes November 27, 2024 8:44am Living Will Yes November 27, 2024 8:44am Do you have a Healthcare Pow er of Supervisor Finishing Room? Yes November 27, 2024 8:44am Name of Medical Power of Supervisor Finishing Room Jennie Agarwal er- spouse November 27, 2024 8:44am Advance Directives Yes November 27 8:44am Do you have a Healthcare Pow er of Supervisor Finishing Room? Yes December 15, 2024 3:01pm Do you have a Healthcare Pow er of Supervisor Finishing Room? Yes December 20, 2024 11:46am Do you have a Healthcare Pow er of Supervisor Finishing Room? Yes November 26, 2024 5:44pm Do you have a Healthcare Pow er of Supervisor Finishing Room? Yes November 30, 2024 5:22pm Do you have a Healthcare Pow er of Supervisor Finishing Room? Yes December 02, 2024 9:54pm Do you have a Healthcare Pow er of Supervisor Finishing Room? Yes December 07, 2024 5:33pm Do you have a Healthcare Pow er of Supervisor Finishing Room? Yes December 24, 2024 2:54am Do you have a Healthcare Pow er of Supervisor Finishing Room? No January 01, 2025 8:56am Reason for Referral Status Reason Specialty Diagnoses / Procedures Referred By Contact Referred To Contact New Request Cardiology Diagnoses Shortness of breath Procedures Echocardiogram complete Eladio Ingram MD [address] [facility] [address] [place] [address] Status Reason Specialty Diagnoses / Procedures Referred By Contact Referred To Contact Closed Cardiology Diagnoses DEAN (dyspnea on exertion) Procedures ECG 12 lead Sagar Acuña, RETAIL MANAGEMENT KEYHOLDER [address] [place] [address] Specialty Diagnoses / Procedures Referred By Contac t Referred To Contact Radiology Diagnoses 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) Procedures CT Angiogram Aorta Chest Abdomen Pelvis Eladio Ingram MD [address] [facility] [address] [place] [address] Referral ID Status Reason Start Date Expiration Date V isits Requested Visits Authorized [id number] New Request 01/10/2021 01/10/2022 1 1 Chief Complaint and Reason for Visit Chief Complaint R. LOWER LID LESION RLQ ABD PAIN bleeding from ear, chest pain OVERDUE FOR OV CHEST PAIN CHEST PAIN Reason for Visit Dizziness Atherosclerotic heart disease [place] coronary artery w/angina pectoris CHF (congestive heart failure) Essential hypertension History of coronary artery stent placement Hyperlipidemia Chief Complaint bleeding from ear, c hest pain OVERDUE FOR OV CHEST PAIN CHEST PAIN 6-8 WK F/U DYSPNEA Reason for Visit Dizziness Atherosclerotic heart disease [place] coronary artery w/angina pectoris CHF (congestive heart failure) Essential hypertension History of coronary artery stent placement Hyperlipidemia Dizziness DEAN (dyspnea on exertion) Palpitations CAD (coronary artery disease) CHF (congestive heart failure) Essential hypertension Hyperlipidemia Chief Complaint OVERDUE FOR OV CHEST PAIN CHEST PAIN 6-8 WK F/U DYSPNEA Reason for Visit Dizziness Atherosclerotic heart disease [place] coronary artery w/angina pectoris CHF (congestive heart failure) Essential hypertension History of coronary artery stent placement Hyperlipidemia Dizziness DEAN (dyspnea on exertion) Palpitations CAD (coronary artery disease) CHF (congestive heart failure) Essential hypertension Hyperlipidemia Chief Complaint OVERDUE FOR OV CHEST PAIN CHEST PAIN 6-8 WK F/U DYSPNEA CHEST PAIN 2 M FU E ORDERS Reason for Visit Dizziness Atherosclerotic heart disease [place] coronary artery w/angina pectoris CHF (congestive heart [...] DEAN (dyspnea on exertion) Atherosclerotic heart disease [place] coronary artery w/angina pectoris CHF (congestive heart failure) Essential hypertension History of coronary artery stent placement Hyperlipidemia Abnormal PFT COVID-19 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.9) Obstructive sleep apnea Chief Complaint SORE THROAT, COUGH, FEVER, BODY ACHE 5 MO F/U 3 M FU DYSPNEA/SOB Reason for Visit COVID-19 DEAN (dyspnea on exertion) Atherosclerotic heart disease burns paiute coronary artery w/angina pectoris CHF (congestive heart [...] CP CVA, CP CVA, CP request by DIV[employer]IED [employer] 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 E-ORDER SYNCOPE Reason for Visit Angina pectoris Chronic kidney disease Coronary artery disease Diabetes mellitus Dyslipidemia Essential hypertension Obesity Left-sided weakness Chest pain Fatigue Syncope Coronary artery disease Dyslipidemia Essential hypertension Chief Complaint CAD Amb Documentation EKG Coronary artery disease Amb Documentation CVA, CP CVA, CP CP ADMIT CVA, CP CVA, CP CVA, CP CVA, CP request by DIV[employer]IED [employer] 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 E-ORDER SYNCOPE 2 M [...] CP CVA, CP CVA, CP request by DIV[employer]IED [employer] 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 E-ORDER SYNCOPE 2 M [...] 03 2:01am History of acute inferior wall IN December 03, 2024 2:01am Hyponatremia December 03, [...] 03 2:01am History of acute inferior wall IN December 03, 2024 2:01am Hyponatremia December 03, [...] 0:00am Presence of stent in coronary artery Honoroi y 2024 10:53am Shortness of breath November [...] 03 2:01am History of acute inferior wall IN December 03, 2024 2:01am Hyponatremia December 03, [...] 2:0 1am History of acute inferior wall IN December 03, 2024 2:01am DEAN (dyspnea on [...] 2:0 1am History of acute inferior wall IN December 03, 2024 2:01am Shortness of breath [...] 2:0 1am History of acute inferior wall IN December 03, 2024 2:01am Hyperlipidemia December 03, [...] 2:0 1am History of acute inferior wall IN December 03, 2024 2:01am Hyperlipidemia December 03, [...] section and content) DATE CREATED AUTHOR 09/24/2018 [facility] DATE CREATED AUTHOR AUTHOR'S ORGANIZ ATION 12/20/2020 [facility] DATE CREATED AUTHOR AUTHOR'S ORGANIZ ATION 01/11/2021 [facility] DATE CREATED AUTHOR AUTHOR'S ORGANIZ ATION 02/28/2021 [facility] DATE CREATED AUTHOR AUTHOR'S ORGANIZ ATION 04/20/2021 [facility] DATE CREATED AUTHOR AUTHOR'S ORGANIZ ATION 06/22/2021 [facility] DATE CREATED AUTHOR AUTHOR'S ORGANIZ ATION 01/15/2025 [facility] DATE CREATED AUTHOR AUTHOR'S ORGANIZ ATION 03/08/2025 [facility] Reason for Visit (unrecogniz ed section and content) Reason Comments Chest Pain SOB Status Reason Specialty Diagnoses / Procedures Referred By Contact Referred To Contact Closed Cardiology Diagnoses DEAN (dyspnea on exertion) Procedures ECG 12 lead Sagar Acuña, RETAIL MANAGEMENT KEYHOLDER [address] [place] [address] Status Reason Specialty Diagnoses / Procedures Referre d By Contact Referred To Contact Closed Cardiology Diagnoses Shortness of breath Procedures Echocardiogram complete w contrast Echocardiogram complete Eladio Ingram MD [address] [place] [address] Reason Comments Initial Visit (Intake) Specialty Diagnoses / Procedures Referred By Contac t Referred To Contact Cardiology Diagnoses 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, unspecified whether burns paiute or transplanted heart (HCC) Marly Marycarmen Harrison, DO [address] [facility] [address] Referral ID Status Reason Start Date Expiration Date V isits Requested Visits Authorized [id number] Closed Specialty Services Required/Krupa ent's Best Interest 10/04/2020 10/04/2021 1 1 Care Teams (unrecognized sec tion and content) Results Technician Relationship Specialty Start Date End Date Marly, Marycarmen Harrison, DO [address] [facility] [address] PCP - General Family Medicine 12/17/16 Results Technician Relationship Specialty Start Date End Date Marycarmen Rodriguez, DO [address] [facility] [address] [place], [place] [id number] PCP - General Family Medicine 12/17/16 Results Technician Relationship Specialty Start Date End Date Marycarmen Rodriguez, DO [address] [facility] [address] [place], [place] [address] PCP - General Family Medicine 12/17/16 Results Technician Relationship Specialty Start Date End Date Marycarmen Rodriguez, DO [address] [facility] [address] [place], [place] [id number] PCP - General Family Medicine 12/17/16 Team Status: Active Member Role Status Dates Dr. Marycarmen Rodriguez DO Family Provider Active Marycarmen Rodriguez Primary Care Provider Active Team Status: Inactive Member Role Status Dates Dr. Marycarmen Rodriguez DO Primary Care Provider, Referrin g Provider Active Luz Elena Mckeon [employer] II FARMWORKER, DIV[employer] II FARMWORKER-C Attending Provider Active Team Status: Inactive Member [...] Primary Care Provider Active Luz Elena Mckeon [employer] II FARMWORKER, DIV[employer] II FARMWORKER-C Attending Provider Active Team Status: Inactive Member Role Status Dates Dr. Marycarmen Rodriguez DO Primary Care Provider Active Luz Elena Mckeon [employer] II FARMWORKER, DIV[employer]IED CROPS II FARMWORKER-C Attending Provider, Referring P robrettder Active Team [...] Jose Hay MD Attending Provider Active Dr. Aelx Sanon MD Referring Provider Active Team Status: [...] Primary Care Provider Active Luz Elena Mckeon [employer] II FARMWORKER, DIV[employer]IED [employer] II FARMWORKER-C Attending Provider, Referring P rovider Active Team [...] Primary Care Provider Active Luz Elena Mckeon DIVERS[employer]IED [employer] II FARMWORKER, DIVERSIFIED CROPS II FARMWORKER-C Attending Provider Active Team Status: Inactive Member [...] 2024 End: April 17, 2024 Gustabo Pérez DIVERS[employer]IED CROPS II FARMWORKER, DIVERSIFIED CROPS II FARMWORKER-C Attending Provider Active S tart: April 17, 2024 End: April 17, 2024 Team Status: Inactive Member Role Status Dates Dr. Marycarmen Rodriguez DO Primary Care Provider Active Start: April 17, 2024 End: April 17, 2024 Gustabo Pérez DIVERS[employer]IED [employer] II FARMWORKER, DIVERSIFIED CROPS II FARMWORKER-C Attending Provider Active S tart: April 17, 2024 End: April 17, 2024 Gustabo Pérez DIVERSIFIED CROPS II FARMWORKER, DIVERSIFIED CROPS II FARMWORKER-C Referring Provider Active S tart: April 17, [...] 2024 End: July 03, 2024 Marni Horn DIVERS[employer]IED CR[employer] II FARMWORKER, DIVERSIFIED CROPS II FARMWORKER-C Attending Provider Active Start: July 03, 2024 End: July 03, 2024 Team Status: Active Member Role Status Dates Dr. Marycarmen Rodriguez DO Primary Care Provider Active Start: July 07, 2024 Marni Horn DIVERS[employer]IED [employer] II FARMWORKER, DIVERSIFIED CROPS II FARMWORKER-C Attending Provider Active Start: July 07, 2024 Marni Horn DIVERS[employer]IED CR[employer] II FARMWORKER, DIVERSIFIED CROPS II FARMWORKER-C Referring Provider Active Start: July 07, 2024 Team Status: Inactive Member Role Status Dates Dr. Marycarmen Rodriguez DO Primary Care Provider Active Start: July 07, 2024 End: July 07, 2024 Marni Horn DIVERS[employer]IED CR[employer] II FARMWORKER, DIVERSIFIED CROPS II FARMWORKER-C Attending Provider Active Start: July 07, 2024 End: July 07, 2024 Marni Horn DIVERSIFIED CROPS II FARMWORKER, DIVERSIFIED CROPS II FARMWORKER-C Referring Provider Active Start: July 07, 2024 End: July 07, 2024 Team Status: Active Member Role Status Dates Dr. Marycarmen Rodriguez DO Primary Care Provider Active Start: July 17, 2024 Marni Horn DIVERSIFIED CROPS II FARMWORKER, DIVERSIFIED CROPS II FARMWORKER-C Attending Provider Active Start: July 17, 2024 Marni Horn DIVERSIFIED CROPS II FARMWORKER, DIVERSIFIED CROPS II FARMWORKER-C Referring Provider Active Start: July 17, 2024 Team Status: Active Member Role Status Dates Dr. Marycarmen Rodriguez DO Primary Care Provider Active Start: July 18, 2024 Marni Horn DIVERSIFIED CR[employer] II FARMWORKER, DIVERSIFIED CROPS II FARMWORKER-C Attending Provider Active Start: July 18, 2024 Marni Horn DIVERSIFIED CROPS II FARMWORKER, DIVERSIFIED CROPS II FARMWORKER-C Referring Provider Active Start: July 18, 2024 Team Status: Active Member Role Status Dates Dr. Marycarmen Rodriguez DO Primary Care Provider Active Start: July 18, 2024 Marni Horn DIVERSIFIED CROPS II FARMWORKER, DIVERSIFIED CROPS II FARMWORKER-C Referring Provider Active Start: July 18, 2024 Marni Horn DIVERSIFIED CROPS II FARMWORKER, DIVERSIFIED CROPS II FARMWORKER-C Other Provider Active Start: July 18, 2024 Dr. Zen East DO Attending Provider Active S tart: July 18, 2024 Team Status: Inactive Member Role Status Dates Dr. Marycarmen Rodriguez DO Primary Care Provider Active Start: July 17, 2024 End: July 17, 2024 Marni Horn DIVERSIFIED CROPS II FARMWORKER, DIVERSIFIED CROPS II FARMWORKER-C Attending Provider Active Start: July 17, 2024 End: July 17, 2024 Marni Horn DIVERSIFIED CROPS II FARMWORKER, DIVERSIFIED CROPS II FARMWORKER-C Referring Provider Active Start: July 17, 2024 End: July 17, 2024 Team Status: Inactive Member Role Status Dates Dr. Marycarmen Rodriguez DO Primary Care Provider Active Start: July 18, 2024 End: July 18, 2024 Marni Horn DIVERSIFIED CROPS II FARMWORKER, DIVERSIFIED CROPS II FARMWORKER-C Attending Provider Active Start: July 18, 2024 End: July 18, 2024 Marni Horn DIVERSIFIED CROPS II FARMWORKER, DIVERSIFIED CROPS II FARMWORKER-C Referring Provider Active Start: July 18, 2024 End: July 18, 2024 Team Status: Inactive Member Role Status Dates Dr. Marycarmen Rodriguez DO Primary Care Provider Active Start: August 03, 2024 End: August 03, 2024 Marni Horn DIVERSIFIED CROPS II FARMWORKER, DIVERSIFIED CROPS II FARMWORKER-C Attending Provider Active Start: August 03, 2024 End: August 03, 2024 Marni Horn DIVERSIFIED CROPS II FARMWORKER, DIVERSIFIED CROPS II FARMWORKER-C Referring Provider Active Start: August 03, 2024 [...] 2024 End: September 20, 2024 Maren Olivas DIVERS[employer]IED CROPS II FARMWORKER-C Attending Provider Active Start: September 20, 2024 End: September 20, 2024 Maren Olivas NP-C Referring Provider Active Start: September 20, 2024 End: September 20, 2024 Team Status: Active Member Role Status Dates Dr. Marycarmen Rodriguez DO Primary Care Provider Active Start: September 22, 2024 Marni Horn DIVERSIFIED CROPS II FARMWORKER, DIVERSIFIED CROPS II FARMWORKER-C Attending Provider Active Start: September 22, 2024 Team Status: Inactive Member Role Status Dates Dr. Marycarmen Rodriguez DO Primary Care Provider Active Start: September 22, 2024 End: September 22, 2024 Marni Horn DIVERSIFIED CROPS II FARMWORKER, DIVERSIFIED CROPS II FARMWORKER-C Attending Provider Active Start: September 22, 2024 [...] tart: July 17, 2024 Marni Horn NP, [employer]IED [employer] II FARMWORKER-C Referring Provider Active Start: July 17, 2024 Team Status: Inactive Member Role Status Dates Dr. Marycarmen Rodriguez DO Primary Care Provider Active Start: October 18, 2024 End: October 18, 2024 Dr. Brooks Carpenter MD Attending Provider Active Start: October 18, 2024 End: October 18, 2024 Dr. Brooks Carpenter MD Referring Provider Active Start: October 18, 2024 End: October 18, 2024 Gustabo Pérez DIVERSIFIED CROPS II FARMWORKER, DIVERSIFIED CROPS II FARMWORKER-C Other Provider Active Start : October 18, 2024 End: October 18, 2024 Team Status: Active Member Role Status Dates Dr. Marycarmen Rodriguez DO Primary Care Provider Active Start: October 18, 2024 Marni Horn DIVERSIFIED CROPS II FARMWORKER, DIVERSIFIED CROPS II FARMWORKER-C Attending Provider Active Start: October 18, 2024 Team Status: Inactive Member Role Status Dates Dr. Marycarmen Rodriguez DO Primary Care Provider Active Start: October 25, 2024 End: October 25, 2024 Dr. Marycarmen Rodriguez DO Referring Provider Active Start: October 25, 2024 End: October 25, 2024 Gustabo Pérez DIVERSIFIED CROPS II FARMWORKER, DIVERSIFIED CROPS II FARMWORKER-C Attending Provider Active S tart: October 25, 2024 End: October 25, 2024 Team Status: Inactive Member Role Status Dates Dr. Marycarmen Rodriguez DO Primary Care Provider Active Start: October 18, 2024 End: October 18, 2024 Marni Horn DIVERSIFIED CROPS II FARMWORKER, DIVERSIFIED CROPS II FARMWORKER-C Attending Provider Active Start: October 18, 2024 End: October 18, 2024 Team Status: Active Member Role/Relationship Status Dates Dr. Marycarmen Rodriguez DO Primary Care Provider Active Team Status: Inactive Member Role/Relationship Status Dates Dr. Marycarmen Rodriguez DO Primary Care Provider Active Start: July 03, 2024 End: July 03, 2024 Dr. Marycramen Rodriguez DO Referring Provider Active Start: July 03, 2024 End: July 03, 2024 Marni Horn DIVERSIFIED CROPS II FARMWORKER, DIVERSIFIED CROPS II FARMWORKER-C Attending Provider Active Start: July 03, 2024 End: July 03, 2024 Team Status: Inactive Member Role/Relationship Status Dates Dr. Marycarmen Rodriguez DO Primary Care Provider Active Start: July 07, 2024 End: July 07, 2024 Marni Horn DIVERSIFIED CROPS II FARMWORKER, DIVERSIFIED CROPS II FARMWORKER-C Attending Provider Active Start: July 07, 2024 End: July 07, 2024 Marni Horn DIVERSIFIED CROPS II FARMWORKER, DIVERSIFIED CROPS II FARMWORKER-C Referring Provider Active Start: July 07, 2024 End: July 07, 2024 Team Status: Inactive Member Role/Relationship Status Dates Dr. Marycarmen Rodriguez DO Primary Care Provider Active Start: July 17, 2024 End: July 17, 2024 Marni Horn DIVERSIFIED CROPS II FARMWORKER, DIVERSIFIED CROPS II FARMWORKER-C Attending Provider Active Start: July 17, 2024 End: July 17, 2024 Marni Horn DIVERSIFIED CROPS II FARMWORKER, DIVERSIFIED CROPS II FARMWORKER-C Referring Provider Active Start: July 17, 2024 End: July 17, 2024 Team Status: Active Member Role/Relationship Status Dates Dr. Marycarmen Rodriguez DO Primary Care Provider Active Start: July 17, 2024 Dr. Zen East DO Attending Provider Active S tart: July 17, 2024 Marni Horn DIVERSIFIED CROPS II FARMWORKER, DIVERSIFIED CROPS II FARMWORKER-C Referring Provider Active Start: July 17, 2024 Team Status: Inactive Member Role/Relationship Status Dates Dr. Marycarmen Rodriguez DO Primary Care Provider Active Start: July 18, 2024 End: July 18, 2024 Marni Horn DIVERSIFIED CROPS II FARMWORKER, DIVERSIFIED CROPS II FARMWORKER-C Attending Provider Active Start: July 18, 2024 End: July 18, 2024 Marni Horn DIVERSIFIED CROPS II FARMWORKER, DIVERSIFIED CROPS II FARMWORKER-C Referring Provider Active Start: July 18, 2024 End: July 18, 2024 Team Status: Active Member Role/Relationship Status Dates Dr. Marycarmen Rodriguez DO Primary Care Provider Active Start: July 18, 2024 Marni Horn DIVERSIFIED CROPS II FARMWORKER, DIVERSIFIED CROPS II FARMWORKER-C Referring Provider Active Start: July 18, 2024 Marni Horn DIVERSIFIED CROPS II FARMWORKER, DIVERSIFIED CROPS II FARMWORKER-C Other Provider Active Start: July 18, 2024 Dr. Zen East DO Attending Provider Active S tart: July 18, 2024 Team Status: Inactive Member Role/Relationship Status Dates Dr. Marycarmen Rodriguez DO Primary Care Provider Active Start: August 03, 2024 End: August 03, 2024 Marni Horn DIVERSIFIED CROPS II FARMWORKER, DIVERSIFIED CROPS II FARMWORKER-C Attending Provider Active Start: August 03, 2024 End: August 03, 2024 Marni Horn DIVERSIFIED CROPS II FARMWORKER, DIVERSIFIED CROPS II FARMWORKER-C Referring Provider Active Start: August 03, 2024 [...] End: September 22, 2024 Marni Horn NP, DIV[employer]IED CR[employer] II FARMWORKER-C Attending Provider Active Start: September 22, 2024 [...] End: October 18, 2024 Gustabo Pérez NP, DIV[employer]IED CR[employer] II FARMWORKER-C Other Provider Active Start : October 18, 2024 End: October 18, 2024 Team Status: Inactive Member Role/Relationship Status Dates Dr. Marycarmen Rodriguez DO Primary Care Provider Active Start: October 18, 2024 End: October 18, 2024 Marni Horn NP [employer]IED [employer] II FARMWORKER-C Attending Provider Active Start: October 18, 2024 End: October 18, 2024 Team Status: Inactive Member Role/Relationship Status Dates Dr. Marycarmen Rodriguez DO Primary Care Provider Active Start: October 25, 2024 End: October 25, 2024 Dr. Marycarmen Rodriguez DO Referring Provider Active Start: October 25, 2024 End: October 25, 2024 Gustabo Pérez DIVERSIFIED CROPS II FARMWORKER, DIVERSIFIED CROPS II FARMWORKER-C Attending Provider Active S tart: October 25, 2024 End: October 25, 2024 Team Status: Active Member Role/Relationship Status Dates Dr. Marycarmen Rodriguez DO Primary Care Provider Active Start: October 26, 2024 Marni Horn DIVERSIFIED CROPS II FARMWORKER, DIVERSIFIED CROPS II FARMWORKER-C Attending Provider Active Start: October 26, 2024 Marni Horn DIVERSIFIED CROPS II FARMWORKER, DIVERSIFIED CROPS II FARMWORKER-C Referring Provider Active Start: October 26, 2024 [...] 2024 End: October 26, 2024 Marni Horn DIVERSIFIED CROPS II FARMWORKER, DIVERSIFIED CROPS II FARMWORKER-C Attending Provider Active Start: October 26, 2024 End: October 26, 2024 Marni Horn DIVERSIFIED CROPS II FARMWORKER, DIVERSIFIED CROPS II FARMWORKER-C Referring Provider Active Start: October 26, 2024 End: October 26, 2024 Team Status: Inactive Member Role/Relationship Status Dates Dr. Marycarmen Rodriguez DO Primary Care Provider Active Start: August 03, 2024 End: August 03, 2024 Marni Horn DIVERSIFIED CROPS II FARMWORKER, DIVERSIFIED CROPS II FARMWORKER-C Attending Provider Active Start: August 03, 2024 End: August 03, 2024 Marni Horn DIVERSIFIED CROPS II FARMWORKER, DIVERSIFIED CROPS II FARMWORKER-C Referring Provider Active Start: August 03, 2024 [...] End: September 22, 2024 Marni Horn NP, DIV[employer]IED CROPS II FARMWORKER-C Attending Provider Active Start: September 22, 2024 [...] End: October 18, 2024 Gustabo Pérez NP, DIVERSIFIED CROPS II FARMWORKER-C Other Provider Active Start : October 18, 2024 End: October 18, 2024 Team Status: Inactive Member Role/Relationship Status Dates Dr. Marycarmen Rodriguez DO Primary Care Provider Active Start: October 18, 2024 End: October 18, 2024 Marni Horn NP, DIV[employer]IED [employer] II FARMWORKER-C Attending Provider Active Start: October 18, 2024 End: October 18, 2024 Team Status: Inactive Member Role/Relationship Status Dates Dr. Marycarmen Rodriguez DO Primary Care Provider Active Start: October 25, 2024 End: October 25, 2024 Dr. Marycarmen Rodriguez DO Referring Provider Active Start: October 25, 2024 End: October 25, 2024 Gustabo Pérez NP, DIV[employer]IED CR[employer] II FARMWORKER-C Attending Provider Active S tart: October 25, 2024 End: October 25, 2024 Team Status: Inactive Member Role/Relationship Status Dates Dr. Marycarmen Rodriguez DO Primary Care Provider Active Start: October 26, 2024 End: October 26, 2024 Marni Horn DIVERSIFIED CROPS II FARMWORKER, DIVERSIFIED CROPS II FARMWORKER-C Attending Provider Active Start: October 26, 2024 End: October 26, 2024 Marni Horn DIVERSIFIED CROPS II FARMWORKER, DIVERSIFIED CROPS II FARMWORKER-C Referring Provider Active Start: October 26, 2024 [...] Active Start: November 10, 2024 Gustabo Pérez DIVERSIFIED CROPS II FARMWORKER, DIVERSIFIED CROPS II FARMWORKER-C Attending Provider Active S tart: November 10, 2024 Gustabo Pérez DIVERSIFIED CROPS II FARMWORKER, DIVERSIFIED CROPS II FARMWORKER-C Referring Provider Active S tart: November 10, 2024 Team Status: Active Member Role/Relationship Status Dates Dr. Marycarmen Rodriguez DO Primary Care Provider Active Start: November 10, 2024 Dr. Lance Rodriguez MD Attending Provider Active S tart: November 10, 2024 Gustabo Pérez DIVERSIFIED CROPS II FARMWORKER, DIVERSIFIED CROPS II FARMWORKER-C Referring Provider Active S tart: November 10, [...] Start: November 13, 2024 Gustabo H Roof DIVERSIFIED CROPS II FARMWORKER, DIVERSIFIED CROPS II FARMWORKER-C Referring Provider Active S tart: November 13, 2024 Gustabo Gao Roof DIVERSIFIED CROPS II FARMWORKER, DIVERSIFIED CROPS II FARMWORKER-C Other Provider Active Start : November 13, 2024 Dr. Jose Hay MD Attending Provider Active Start: November 13, 2024 Team Status: Inactive Member Role/Relationship Status Dates Dr. Marycarmen Rodriguez DO Primary Care Provider Active Start: November 10, 2024 End: November 10, 2024 Gustabo Gao Beto DIVERSIFIED CROPS II FARMWORKER, DIVERSIFIED CROPS II FARMWORKER-C Attending Provider Active S tart: November 10, 2024 End: November 10, 2024 Gustabo H Roof DIVERSIFIED CROPS II FARMWORKER, DIVERSIFIED CROPS II FARMWORKER-C Referring Provider Active S tart: November 10, [...] 2024 End: November 22, 2024 Dr. Marycarmen Rodrgiuez DO Referring Provider Active Start: November 22, 2024 End: November 22, 2024 Gustabo Pérez DIVERSIFIED CROPS II FARMWORKER, DIVERSIFIED CROPS II FARMWORKER-C Attending Provider Active S tart: November 22, [...] Active Start: November 22, 2024 Gustabo Pérez DIVERSIFIED CROPS II FARMWORKER, DIVERSIFIED CROPS II FARMWORKER-C Attending Provider Active S tart: November 22, 2024 Gustabo Pérez DIVERSIFIED CROPS II FARMWORKER, DIVERSIFIED CROPS II FARMWORKER-C Referring Provider Active S tart: November 22, [...] 2024 End: November 22, 2024 Gustabo Pérez DIVERSIFIED CROPS II FARMWORKER, DIVERSIFIED CROPS II FARMWORKER-C Attending Provider Active S tart: November 22, 2024 End: November 22, 2024 Gustabo Pérez DIVERSIFIED CROPS II FARMWORKER, DIVERSIFIED CROPS II FARMWORKER-C Referring Provider Active S tart: November 22, [...] End: September 22, 2024 Marni Horn NP, DIV[employer]IED CROPS II FARMWORKER-C Attending Provider Active Start: September 22, 2024 [...] 2024 End: October 18, 2024 Gustabo Pérez DIVERSIFIED CROPS II FARMWORKER, DIVERSIFIED CROPS II FARMWORKER-C Other Provider Active Start : October 18, 2024 End: October 18, 2024 Team Status: Inactive Member Role/Relationship Status Dates Dr. Marycarmen Rodriguez DO Primary Care Provider Active Start: October 18, 2024 End: October 18, 2024 Marni Horn DIVERSIFIED CROPS II FARMWORKER, DIVERSIFIED CROPS II FARMWORKER-C Attending Provider Active Start: October 18, 2024 End: October 18, 2024 Team Status: Inactive Member Role/Relationship Status Dates Dr. Marycarmen Rdoriguez DO Primary Care Provider Active Start: October 25, 2024 End: October 25, 2024 Dr. Marycarmen Rodriguez DO Referring Provider Active Start: October 25, 2024 End: October 25, 2024 Gustabo Pérez DIVERSIFIED CROPS II FARMWORKER, DIVERSIFIED CROPS II FARMWORKER-C Attending Provider Active S tart: October 25, 2024 End: October 25, 2024 Team Status: Inactive Member Role/Relationship Status Dates Dr. Marycarmen Rodriguez DO Primary Care Provider Active Start: October 26, 2024 End: October 26, 2024 Marni Horn DIVERSIFIED CROPS II FARMWORKER, DIVERSIFIED CROPS II FARMWORKER-C Attending Provider Active Start: October 26, 2024 End: October 26, 2024 Marni Horn DIVERSIFIED CROPS II FARMWORKER, DIVERSIFIED CROPS II FARMWORKER-C Referring Provider Active Start: October 26, 2024 [...] 2024 End: November 10, 2024 Gustabo Pérez DIVERSIFIED CROPS II FARMWORKER, DIVERSIFIED CROPS II FARMWORKER-C Attending Provider Active S tart: November 10, 2024 End: November 10, 2024 Gustabo Pérez DIVERSIFIED CROPS II FARMWORKER, DIVERSIFIED CROPS II FARMWORKER-C Referring Provider Active S tart: November 10, 2024 End: November 10, 2024 Team Status: Active Member Role/Relationship Status Dates Dr. Marycarmen Rodriguez DO Primary Care Provider Active Start: November 10, 2024 Dr. Lance Rodriguez MD Attending Provider Active S tart: November 10, 2024 Gustabo Pérez DIVERSIFIED CROPS II FARMWORKER, DIVERSIFIED CROPS II FARMWORKER-C Referring Provider Active S tart: November 10, 2024 Team Status: Inactive Member Role/Relationship Status Dates Dr. Marycarmen Rodriguez DO Primary Care Provider Active Start: November 10, 2024 End: November 10, 2024 Maren Olivas DIVERSIFIED CROPS II FARMWORKER-C Attending Provider Active Start: November 10, 2024 End: November 10, 2024 Maren Olivas , DIV[employer]IED CROPS II FARMWORKER-C Referring Provider Active Start: November 10, 2024 End: November 10, 2024 Team Status: Active Member Role/Relationship Status Dates Dr. Marycarmen Rodriguez DO Primary Care Provider Active Start: November 13, 2024 Gustabo Pérez DIVERSIFIED CROPS II FARMWORKER, DIVERSIFIED CROPS II FARMWORKER-C Referring Provider Active S tart: November 13, 2024 Gustabo Pérez DIVERSIFIED CROPS II FARMWORK[employer], [employer] FARMWORKER-C Other Provider Active Start : November 13, [...] 2024 End: November 22, 2024 Gustabo Pérez [employer] FARMWORKER, [employer] FARMWORK[employer]-C Attending Provider Active S tart: November 22, 2024 End: November 22, 2024 Team Status: Inactive Member Role/Relationship Status Dates Dr. Marycarmen Rodriguez DO Primary Care Provider Active Start: November 22, 2024 End: November 22, 2024 Gustabo Pérez [employer] II FARMWORKER, [employer] FARMWORKER-C Attending Provider Active S tart: November 22, 2024 End: November 22, 2024 Gustabo Pérez [employer] II FARMWORKER, [employer] II FARMWORKER-C Referring Provider Active S tart: November 22, [...] Provider Active Start: December 03, 2024 Dr. Miceky Simpson MD Other Provider Active St art: [...] Star t: December 07, 2024 Dr. Shaan aSntos DO Attending Provider Active Start: December 07, [...] 2024 End: December 12, 2024 Gustabo Pérez [employer] II FARMWORKER, [employer] II FARMWORKER-C Attending Provider Active S tart: December 12, [...] Active Start: December 12, 2024 Gustabo Pérez [employer] II FARMWORKER, DIV[employer] II FARMWORKER-C Attending Provider Active S tart: December 12, 2024 Gustabo Pérez [employer] II FARMWORKER, [employer] II FARMWORKER-C Referring Provider Active S tart: December 12, 2024 Team Status: Active Member Role/Relationship Status Dates Dr. Marycarmen Rodriguez DO Primary Care Provider Active Start: December 13, 2024 Byod SWAIN MD Attending Provider Active Start: December [...] 2024 End: December 12, 2024 Gustabo Pérez [employer] II FARMWORKER, DIV[employer] II FARMWORKER-C Attending Provider Active S tart: December 12, 2024 End: December 12, 2024 Gustabo Pérez [employer] II FARMWORKER, DIV[employer] II FARMWORKER-C Referring Provider Active S tart: December 12, [...] 2024 End: December 07, 2024 Tess Balderas DIV[employer] II FARMWORKER, DIV[employer] II FARMWORKER-C Attending Provider Active Start: December 07, 2024 [...] 2024 End: December 12, 2024 Gustabo Pérez [employer] II FARMWORKER, DIV[employer] II FARMWORKER-C Attending Provider Active S tart: December 12, 2024 End: December 12, 2024 Team Status: Inactive Member Role/Relationship Status Dates Dr. Marycarmen Rodriguez DO Primary Care Provider Active Start: December 12, 2024 End: December 12, 2024 Gustabo Pérez [employer] II FARMWORKER, DIV[employer] II FARMWORKER-C Attending Provider Active S tart: December 12, 2024 End: December 12, 2024 Gustabo Pérez [employer] II FARMWORKER, DIV[employer]IED [employer]OPS II FARMWORKER-C Referring Provider Active S tart: December 12, [...] Active Start : December 17, 2024 Dr. Marycaremn Marlow DO Attending Provider Active Start: December [...] Active St art: December 25, 2024 [place] [employer] Other Provider Active Star t: December 25, [...] BE BASED ON THE PRIMARY CLINICAL RECORDS. [facility]. provides no warranty or guarantee of the accuracy or completeness of information in this document.
--- NOTE | 2025-03-27 11:54 | STRESSREP_ITS ---
Stress Test Report Date: 03/26/2025 Procedure: Pharmacologic stress nuclear imaging study Indications: Chest pain/coronary artery disease Consent: Per the patient Procedure: The patient underwent pharmacologic (Regadenoson 0.4mg ) evaluation with a peak heart rate of 85 beats per minute (60%predicted maximal heart rate) and a peak blood pressure of 142/86 mmHg. The baseline ECG demonstrated sinus rhythm with nonspecific ST changes. The peak pharmacologic ECG was nondiagnostic secondary to baseline abnormalities. No significant cardiac dysrhythmias noted. There was no complaint of chest discomfort during pharmacologic infusion or recovery. The patient was injected with 14.9 millicuries of technetium 99m Cardiolite and subsequently rest SPECT Cardiolite nuclear imaging was obtained in the horizontal long, vertical long, and short axis views. The patient underwent pharmacologic (Regadenoson) evaluation. The patient was injected with 44.3 millicuries of technetium 99m Cardiolite and subsequently stress SPECT Cardiolite nuclear imaging was obtained in the horizontal long, vertical long, and short axis views. A gated Cardiolite study at peak stress was obtained. The examination was stopped secondary to completion of protocol. Rest and stress SPECT Cardiolite nuclear imaging status post realignment, normalization, and attenuation correction demonstrate large inferior fixed defect with no significant reversible component. Significant extracardiac uptake of nuclear tracer. Inferior hypokinesis noted. The reported LVEF is 58%. Impression: 1. Pharmacologic (Regadenoson) evaluation 2. Peak pharmacologic ECG with no diagnostic ischemic changes. 3. No significant cardiac dysrhythmias noted. 5. 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 6. The gated Cardiolite study reports an LVEF of 58%. This note was generated with [employer] software. It may contain incorrect words, spelling, and punctuation that were not noted in checking the note before signing.
== END | disposition home or self-care (01) ==
LOC: CVS 06:24
PROVIDERS: PCP Family Medicine; Referring Provider Internal Medicine Cardiovascular Disease; Visit Provider Internal Medicine Cardiovascular Disease
DX: R07.9 Chest pain, unspecified (principal); I44.2 Atrioventricular block, complete; E11.9 Type 2 diabetes mellitus without complications; R06.09 Other forms of dyspnea; I10 Essential (primary) hypertension; I25.10 Atherosclerotic heart disease of native coronary artery without angina pectoris; I25.5 Ischemic cardiomyopathy; E78.5 Hyperlipidemia, unspecified; Z95.5 Presence of coronary angioplasty implant and graft
CPT/HCPCS: 78452; 93017; 93306; A9500; Q9957; A4216; C8929; J2785